=== PATIENT | female | born 1990 | race Caucasian/White ===

== ENCOUNTER 2017-06-04 21:43 | Emergency (ER) | payer MEDICARE, OTHER ==
[~2017-06-04] VITALS: Ht 165.1 cm; Wt 68.0 kg
--- OUTSIDE RECORDS SUMMARY | ~2017-06-04 | XMS ---
Demographics + + + | Address | [address] | | | [place] [address] | + + + | Preferred Language | Unknown | + + + | Marital Status | Unknown | + + + | Restorationism Affiliation | Unknown | + + + | Race | Unknown | + + + | Ethnic Group | Unknown | + + + Author + + + | Author | [facility] | + + + | Organization | [facility] | + + + | Address | [address] | | | [place] [address] | + + + | Phone | | + + + Care Team Providers + + + + | Care Quality Technician Fiberglass Name | Role | Phone | + + + + Unavailable | Unavailable | + + + + PROBLEMS +---------+ + + +--------+ + + | Type | Condition | ICD9-CM | [id number] | Onset | Condition | SNOMED | | | | Code | Code | Dates | Status | Code | +---------+ + + +--------+ + + | Problem | Abdominal | | R10.11 | | Active | [id number] | | | pain, | | | | | | | | chronic, | | | | | | | | right | | | | | | | | upper | | | | | | | | quadrant | | | | | | +---------+ + + +--------+ + + | Problem | Complex | G90.50 | | | Active | [id number] | | | regional | | | [...] | | K59.01 | | Active | [id number] | | | transit | | | | | | | | constipati | | | | | | | | on | | | | | | +---------+ + + +--------+ + + ALLERGIES No Known Allergies SOCIAL HISTORY No smoking Hx information available PLAN OF CARE VITAL SIGNS MEDICATIONS Unknown Medications RESULTS No Results PROCEDURES No Known procedures IMMUNIZATIONS No Known Immunizations"
--- OUTSIDE RECORDS SUMMARY | ~2017-06-04 | XMS ---
Demographics + + + | Address | [address] | | | [place] [address] | + + + | Preferred Language | Unknown | + + + | Marital Status | Unknown | + + + | Jainism Affiliation | Unknown | + + + | Race | Unknown | + + + | Ethnic Group | Unknown | + + + Author + + + | Author | [facility] | + + + | Organization | [facility] | + + + | Address | [address] | | | [place] [address] | + + + | Phone | | + + + Care Team Providers + + + + | Care Machine Operator Helper Name | Role | Phone | + + + + Unavailable | Unavailable | + + + + PROBLEMS +---------+ + + +--------+ + + | Type | Condition | ICD9-CM | [id number] | Onset | Condition | SNOMED | | | | Code | Code | Dates | Status | Code | +---------+ + + +--------+ + + | Problem | Fibromyalg | M79.7 | | | Active | [id number] | | | ia | | | | | | | | affecting | | | | | | | | multiple | | | | | | | | sites | | | | | | +---------+ + + +--------+ + + | Problem | Abdominal | | R10.11 | | Active | [id number] | | | pain, | | | | | | | | chronic, | | | | | | | | right | | | | | | | | upper | | | | | | | | quadrant | | | | | | +---------+ + + +--------+ + + | 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 | [id number] | | | transit | | | | | | | | constipati | | | | | | | | on | | | | | | +---------+ + + +--------+ + + | Problem | Complex | G90.50 | | | Active | [phone] | | | regional | | | [...] Morphine | Anaphylaxis | Non Drug | May, | Active | | | | Allergy [...] + | Height | 64.5 in | 2017-06-01 | + + + + | Weight | 150 lbs | 2017-06-01 | + + + + | BMI | 25.35 kg/m2 | 2017-06-01 | + + + + | Temperature | 97.7 degrees Fahrenheit | 2017-06-01 | + + + + | Heart Rate | 107 /min | 2017-06-01 | + + + + | Blood pressure systolic | 123 mm Hg | 2017-06-01 | + + + + | Blood pressure diastolic | 65 mm Hg | 2017-06-01 | + + + + MEDICATIONS + [...] Golytely | Orally | as | | Dec, | | | Active | | 236 [...] Rectal | 1 enema | 24h | Nov, | | | Active | | [...] 10 | Once a | | | 2017 | | | | | GM/15ML | [...] + +--------+ | Pregabal | Orally | 1 | | 19 Gerardo, | | | Active | | in 75 mg | Once at | capsule | | 2017 | | | | | | bedtime | | | | | | | | | for one | | | | | | | | | week and | | | | | | | | | | | | | | | | | | Increase | | | | | | | | | to | | | | | | | | | Twice a | | | | | | | | | day | | | | | | | | | after 7 | | | | | | | | | days. | | | | | | [...] Orally | 1 tablet | 8h | May, | | | Active | [...] + +--------+ | Cycloben | Orally | 1 tablet | | May, | | | Active | | zaprine | Once a | | | 2016 | | | | | HCl 5 MG | day at | | | | | | | | | bedtime | | | | | [...] + + | Office Visit, Est | June 01, 2017 | | | | Pt., Level 4 | | | | + + + + + IMMUNIZATIONS No Known Immunizations"
--- OUTSIDE RECORDS SUMMARY | ~2017-06-04 | XMS ---
Demographics + + + | Address | [address] | | | [place] [address] | + + + | Preferred Language [...] | + + + | Organization | [facility] | + + + | Address | [address] | | | [place] [address] | + + + | Phone | | + + + Care Team Providers + + + + | Care Forestry Contractor Name | Role | Phone | + + + + Unavailable | Unavailable | + + + + PROBLEMS +---------+ + + +--------+ + + | Type | Condition | ICD9-CM | [id number] | Onset | Condition | SNOMED | | | | Code | Code | Dates | Status | Code | +---------+ + + +--------+ + + | Problem | Abdominal | | R10.11 | | Active | [id number] | | | pain, | | | | | | | | chronic, | | | | | | | | right | | | | | | | | upper | | | | | | | | quadrant | | | | | | +---------+ + + +--------+ + + | Problem | Complex | G90.50 | | | Active | [id number] | | | regional | | | [...] | | K59.01 | | Active | [id number] | | | transit | | | [...]
--- OUTSIDE RECORDS SUMMARY | ~2017-06-04 | XMS ---
Demographics + + + | Address | [address] | | | [place] [address] | + + + | Preferred Language | Unknown | + + + | Marital Status | Unknown | + + + | Samaritan Affiliation | Unknown | + + + | Race | Unknown | + + + | Ethnic Group | Unknown | + + + Author + + + | Author | [facility] | + + + | Organization | [facility] | + + + | Address | [address] | | | [place] [address] | + + + | Phone | | + + + Care Team Providers + + + + | Care Alarm Operator Name | Role | Phone | + + + + Unavailable | Unavailable | + + + + PROBLEMS +---------+ + + +--------+ + + | Type | Condition | ICD9-CM | [id number] | Onset | Condition | SNOMED | | | | Code | Code | Dates | Status | Code | +---------+ + + +--------+ + + | Problem | Abdominal | | R10.11 | | Active | [id number] | | | pain, | | | | | | | | chronic, | | | | | | | | right | | | | | | | | upper | | | | | | | | quadrant | | | | | | +---------+ + + +--------+ + + | Problem | Complex | G90.50 | | | Active | [phone] | | | regional | | | [...] | | K59.01 | | Active | [phone] | | | transit | | | [...]
[~2017-06-04 21:43] MED LIST: ADULT GLYCERIN1 EACH PR; ATIVAN1 MG PO; ATIVAN2 MG PO; AUGMENTIN 875-1 EACH PO; CANABIS OIL PO; CARAFATE1 GM/10 ML PO; CELEBREX100 MG PO; CREOMULSIO20 MG/15 M PO; CYCLOBENZAPRINE5 MG PO; CYMBALTA20 MG PO; DEXTROMETHORPHAN PO; DICLOFENAC SODI50 MG PO; DRYSOL35 ML TOP; DURAGESIC1 EAC3; FOLIC ACID1 MG PO; GAVILYTE-G SO4000 ML PO; GLUCOPHAGE500 MG PO; GRANISETRON HCL1 MG PO; HYDROCODON-ACE1 EAC8; HYDROMORPHONE PO; KETOROLAC TROME10 MG PO; KETOROLAC15 MG/1 M1 IM; KETOROLAC30 MG/1 M2 INJ; KETOROLAC60 MG/2 M1 IM; KETOROLAC60 MG/2 ML IV; LAMICTAL200 MG PO; LAMOTRIGINE OD200 MG PO; LAMOTRIGINE200 MG PO; LORAZEPAM1 MG PO; MELATONIN10 M2 PO; METHYLPHENIDATE10 MG PO; METOCLOPRAMIDE10 MG PO; MINOCYCLINE HC100 MG PO; MIRENA1 EACH XX; MOTRIN IB200 MG PO; NALTREXONE HCL50 MG PO; NAMENDA XR28 MG PO; NAMENDA10 MG PO; NUEDEXTA 20-101 EACH PO; ONDANSETRON ODT4 MG MT; ONDANSETRON ODT8 MG PO; OXYCODON-ACETA1 EAC2 PO; OXYCODONE HCL5 MG; PANTOPRAZOLE SO40 MG PO; PHENERGAN25 MG/1 M1 PO; PHENERGAN50 MG RC; PROAIR HFA8.5 GM INH; PROMETHAZINE HC25 M1 PO; PROMETHAZINE HC25 MG PR; PROMETHAZINE12.5 M1 PO; REGLAN10 MG PO; SENNA LAX8.6 MG PO; TRAZODONE HCL100 MG PO; VISTARIL50 MG PO; VITAMIN B-12500 MCG PO; ZOFRAN ODT4 MG PO; ZOFRAN ODT4 MG SL; ZOFRAN ODT8 MG PO; [UNRECOGNIZED DRUG - OTHER] NS
[2017-11-23] MEDS ORDERED: BACLOFEN10 MG PO (14:22)
[2017-11-23] MEDS ORDERED: PROMETHAZINE12.5 M1 PO (14:23)
[2017-11-23] MEDS ORDERED: NAMENDA XR28 MG PO (14:25)
[2017-11-23] MEDS ORDERED: PROTONIX40 MG PO (14:26)
[2017-11-23] MEDS ORDERED: ZOFRAN ODT4 MG PO (14:28)
[2017-11-23] MEDS ORDERED: GAVILAX17 GM PO (14:28)
== END 2017-06-05 00:21 | disposition home or self-care (01) ==
LOC: ED 21:43
DX: G89.29 Other chronic pain (principal); R10.9 Unspecified abdominal pain; K21.9 Gastro-esophageal reflux disease without esophagitis; Z90.49 Acquired absence of other specified parts of digestive tract; Z88.5 Allergy status to narcotic agent; Z79.899 Other long term (current) drug therapy; Z79.01 Long term (current) use of anticoagulants; Z79.84 Long term (current) use of oral hypoglycemic drugs
CPT/HCPCS: 80053; 81001; 83690; 84703; 85025; 87088; 96374; 96375; 99283; J1885; J2405

== ENCOUNTER 2017-06-07 14:53 | Inpatient (IN) | payer MEDICARE, OTHER ==
[~2017-06-07] VITALS: Ht 165.1 cm; Wt 68.0 kg
--- NOTE | 2017-06-07 15:07 | NUR ---
pt arrived for direct admit at this time. pt alert and oriented
--- NOTE | 2017-06-07 17:31 | NUR ---
URINE SAMPLE SENT TO LAB PER . PT RESTING QUIETLY IN BED
--- NOTE | 2017-06-07 17:40 | NUR ---
PT DIRECT ADMIT THIS AFTERNOON. PT HAS CHRONIC ABD ABD LLE PAIN. ACCESSED IMPLANTED PORT. UA SENT, PAIN AND NAUSEA MEDICATIONS ORDERED AND ADMINISTERED. PT HAS BEEN RESTING IN BED SINCE ADMISSION, STAND BY ASSIST TO BATHROOM. BLLOD DRAWN FROM PORT FOR LABS.
--- NOTE | 2017-06-07 18:17 | NUR ---
PT IS RESTING WITH EYES CLOSED RESPERATIONS EVEN. PT WOKE UP FOR VITALS AND ASKED FOR HEAT IN ROOM TO BE TURNED DOWN
--- NOTE | 2017-06-07 21:54 | NUR ---
PT ASSESSMENT COMPLETE. PT RATES ABD PAIN 05/23, DILAUDID GIVEN. PT C/O NAUSEA, PHENERGAN GIVEN. FLEXERIL GIVEN PER PT REQUEST. PT UP TO BATHROOM INDEPENDENTLY, VOIDING WITHOUT DIFFICULTY. IV FLUIDS INFUSING WITHOUT DIFFICULTY. CALL LIGHT WITHIN REACH. PT DENIES ANY FURTHER NEEDS AT THIS TIME.
--- NOTE | 2017-06-08 00:05 | NUR ---
PT SLEEPING, RR EVEN AND UNLABORED. PT APPEARS COMFORTABLE AT THIS TIME. IV FLUIDS INFUSING THROUGH PORT WITHOUT DIFFICULTY. CALL LIGHT WITHIN REACH.
--- NOTE | 2017-06-08 02:26 | NUR ---
CALLED DR PERRY REGARDING BLOOD PRESSURE OUTSIDE MD PARAMETER, NO NEW ORDERS AT THIS TIME.
--- NOTE | 2017-06-08 02:55 | NUR ---
PT C/O PAIN 05/23, DILAUDID AND TORADOL GIVEN. PT C/O NAUSEA, ZOFRAN GIVEN. PT C/O HEARTBURN, MAALOX GIVEN. IV FLUIDS INFUSING WITHOUT DIFFICULTY. PT DENIES ANY FURTHER NEEDS AT THIS TIME. CALL LIGHT WITHIN REACH.
--- NOTE | 2017-06-08 04:00 | NUR ---
PT SLEEPING, RR EVEN AND UNLABORED. PT APPEARS COMFORTABLE AT THIS TIME. IV FLUIDS INFUSING THROUGH PORT WITHOUT DIFFICULTY. CALL LIGHT WITHIN REACH.
--- NOTE | 2017-06-08 07:05 | NUR ---
BEDSIDE HANDOFF REPORT RECEIVED FROM DIRECTOR OF ENTERTAINMENT RN. PT SLEEPING, LEFT UNDISTURBED.
--- NOTE | 2017-06-08 07:15 | NUR ---
PATIENT SLEEPING IN BED. SHE WOKE UP WHEN I POURED NEW ICE WATER INTO HER CUP. SHE ASKED IF SHE COULD HAVE SOME CRACKERS. AFTER CHECKING WITH NURSE SMILEY I GOTHER SOME CRACKERS AND GRAPE JUICE. SHE STATED SHE DID NOT NEED ANYTHING ELSE ATTHIS TIME.
--- NOTE | 2017-06-08 09:05 | NUR ---
PT RESTING IN PAIN. PT COMPLAINT OF PAIN 05/23, GIVEN 5 MG FLEXIRIL, 30 MG TORADOL. PT LUNG SOUNDS CLEAR, ON ROOM AIR. PT BOWEL TONAES ACTIVE, COMPLAINT OF NAUSEA, TOLERATED BREAKFAST, DENIES EMESIS, 4MG ZOFRAN GIVEN. PT WITH PORT TO RIGHT CHEST, WITHOUT REDNESS, PATENT, INFUSING IV FLUIDS D5LR AT 125 ML/HR. PT REQUESTING TO REST. PT DENIES OTHER NEEDS AT THIS TIME.
--- NOTE | 2017-06-08 10:12 | NUR ---
PT RATING PAIN 6/10. GIVEN 0.25MG IV DILAUDID. PT HYPOTENSIVE, BP 89/47, DENIES LIGHTHEADEDNESS, DIZZINESS. PT DENIES NEEDS AT THIS TIME.
--- NOTE | 2017-06-08 10:33 | NUR ---
NOTIFIED OF HYPOTENSION. NO NEW ORDERS AT THIS TIME.
--- NOTE | 2017-06-08 10:39 | NUR ---
I CAME INTO TAKE PATIENTS VITALS. SHE WAS IN BATHROOM. I EMPTIED HAT IN BATHROOM THEN TOOK HER VITALS. BLOOD PRESSURE WAS LOW BUT NURSE SMILEY WAS IN ROOM AND SAID SHE WOULD LET KNOW. I GOT PATIENT FRESH ICE WATER. SHE DOES NOT NEED ANYTHING ELSE AT THIS TIME.
--- NOTE | 2017-06-08 13:44 | NUR ---
PT REQUESTING PAIN MEDICATION. NEW ORDER FOR DILAUDID Q6H PRN DUE TO HYPOTENSION. DISCUSSED WITH PT. PT UP TO BATHROOM. TEARFUL.
--- NOTE | 2017-06-08 13:51 | NUR ---
PT GIVEN 12.5 MG PHENRGAN IV FOR NAUSEA. PT VOICING FRUSTRATION OF PAIN MEDICATION SCHEDULE, DISCUSSED WITH PT.
--- NOTE | 2017-06-08 15:00 | NUR ---
MD TO BEDSIDE TO EVAULATE PT. PLAN TO POSSIBLY DISCHARGE TOMORROW DEPENDING ON ORAL INTAKE. PT WITHOUT EMESIS. PT VOICING CONCERN OF DISCHARGING WITH CURRENT PAIN. PT DENIES NEEDS AT THIS TIME.
[2017-06-08] MEDS ORDERED: LYRICA75 MG PO (16:35)
--- NOTE | 2017-06-08 17:31 | NUR ---
PT ON ROOM AIR, LUNG SOUNDS CLEAR. ABD PAIN UNCHANGED, RECEIVED TORADOL, DILAUDID, FLEXIRIL, ZOFRAN AND PHENERGAN THROUGHOUT SHIFT. PT ABLE TO TOLERATE REGULAR DIET. PT UP INDEPENDENTLY. PT WITH IV FLUIDS INFUSING AT 65 ML/HR. PT VOIDING QS. PLAN TO POSSIBLY DISCHARGE TOMORROW.
--- NOTE | 2017-06-08 18:52 | NUR ---
MD NOTIFIED OF BLOOD PRESSURE 98/57, HR 78, URINE OUTPUT QS, LIGHT YELLOW IN COLOR, PT DENIES DIZZINESS. NO NEW ORDERS.
--- NOTE | 2017-06-08 20:16 | NUR ---
IN TO CHECK ON PT, PT IN BED LISTENING TO MUSIC. PT ALERT AND PLEASENT. ASSESSMENT AND VITALS DONE. PT STATES THAT SHE NORMALLY TAKES MELATONIN FOR SLEEP. PT WOULD LIKE TO KNOW IF SHE HAS MELATONIN ORDERED. ADVISED WILL CHECK MEDICATION LIST. FRESH WATER GIVEN, CALL LIGHT WITHIN REACH.
--- NOTE | 2017-06-08 23:29 | NUR ---
IN TO CHECK ON PT, PT C/O 05/23 ABD PAIN AND REQUEST MEDICATION. SCHEDULED DILAUDID GIVEN. FRESH WATER GIVEN. NO FURTHER NEEDS AT THIS TIME. CALL LIGHT WITHIN REACH.
--- NOTE | 2017-06-09 00:36 | NUR ---
IN TO CHECK ON PT, PT APPEARS TO BE SLEEPING. NO APPARENT DISTRESS. CALL LIGHT WITHIN REACH.
--- NOTE | 2017-06-09 02:08 | NUR ---
BROUGHT PT ICE WATER PER PT REQUEST. PT PLEASENT AND HAD NO FURTHER NEEDS AT THIS TIME.
--- NOTE | 2017-06-09 03:15 | NUR ---
PT CALLED REQUESTING PAIN MEDICATION. EMAR REVIEWED, PT NOTIFIED CAN HAVE DILAUDID AND PHENERGAN AT 0330. PT AGREES. NOTES EMESIS OF 100 MLS. PT REQUESTED CRACKERS BEFORE NEXT DOSE OF PAIN MEDICATION. CRACKERS GIVEN. CALL LIGHT WITHIN REACH.
--- NOTE | 2017-06-09 04:03 | NUR ---
IN TO PT'S ROOM TO GIVE MEDICATION, PT UP TO BATHROOM WITHOUT ASSIST. FRESH ICE WATER GIVEN. PT AMBULATED BACK TO BED, NO APPARENT DISTRESS NOTED. CALL LIGHT WITH IN REACH.
--- NOTE | 2017-06-09 05:23 | NUR ---
EMESIS X1. ABD PAIN UNCHANGED THROUGHOUT THE SHIFT. DILAUDID AND PHENERGAN GIVEN THROUGHOUT THE SHIFT. REGULAR DIET. PT UP IN ROOM INDEPENDENTLY. PLAN FOR POSSIBLE DISCHARGE TODAY.
--- NOTE | 2017-06-09 06:57 | NUR ---
BEDSIDE HANDOFF REPORT RECEIVED FROM CHURCH SUPERVISOR RN. PT SLEEPING, LEFT UNDISTURBED.
--- NOTE | 2017-06-09 08:32 | NUR ---
PT REQUESTING PAIN MEDICATION, RATING PAIN 7/10 TO ABD. PT GIVEN 0.25 MG IV DILAUDID. MOTHER AT BEDSIDE. PT ON ROOM AIR, LUNG SOUNDS CLEAR. PT TOLERATING REGULAR DIET. PT BOWEL TONES ACTIVE. IV LFUIDS INFUSING AT 65ML/HR. PT DENIES NEEDS AT THIS TIME.
[2017-06-09] MEDS ORDERED: KETOROLAC TROME10 MG PO (09:11)
[2017-06-09] MEDS ORDERED: MELOXICAM15 MG PO (09:11)
--- NOTE | 2017-06-09 09:12 | NUR ---
MED REC COMPLETE--PER PATIENT
--- NOTE | 2017-06-09 14:40 | NUR ---
PT RESTING IN BED. PT STATES PAIN 6.5/10, GIVEN IV TORADOL. PT WITH 2 LARGE LOOSE STOOLS, DISCUSSED MEDICATION DUE, PT WOULD LIKE TO HOLD LACTULOSE AND ONLY TAKE 1 PACKET OR MIRALAX. PT VOIDING LIGHT YELLOW URINE. PT PORT FLUSHING WIHTOUT DIFFICULTY, FREE OF REDNESS OR SWELLING AT ACCESS SITE. PT INDEPENDENT IN ROOM. PT DENIES NEEDS AT THIS TIME.
--- NOTE | 2017-06-09 15:30 | NUR ---
PT SLEEPING, LEFT UNDISTURBED.
--- NOTE | 2017-06-09 18:30 | NUR ---
PT ON ROOM AIR, LUNG SOUNDS CLEAR. PT PAIN CONTROLLED WITH IV DILAUDID AND TORADOL. PT COMPLAINT OF NAUSEA, RECEIVING ZOFRAN AND PHENERGAN. PT TOLERATING REGULAR DIET, FREE OF EMESIS THIS SHIFT. PT WITH PORT TO RIGHT CHEST, INFUSING D5LR AT 65 ML/HR. PT INDEPENDENT IN ROOM. PT VOIDING QS. PT HAD 2 LARGE LOOSE BMS TODAY.
--- NOTE | 2017-06-09 20:21 | NUR ---
PT ASSESSMENT COMPLETE. PT C/O ABD PAIN 04/23, IV DILAUDID GIVEN. PT C/O NAUSEA WITH NO EMESIS, PHENERGAN GIVEN. FLEXERIL AND HS MEDS GIVEN PER PT REQUEST. IV FLUIDS INFUSING WITHOUT DIFFICULTY THROUGH PORT. PT UP INDEPENDENTLY TO BATHROOM, VOIDING WITHOUT DIFFICULTY. CALL LIGHT WITHIN REACH. PT DENIES ANY FURTHER NEEDS AT THIS TIME.
--- NOTE | 2017-06-10 00:15 | NUR ---
PT SLEEPING, RR EVEN AND UNLABORED. PT APPEARS COMFORTABLE AT THIS TIME. IV FLUIDS INFUSING THROUGH PORT WITHOUT DIFFICULTY. CALL LIGHT WITHIN REACH.
--- NOTE | 2017-06-10 02:25 | NUR ---
PT C/O ABD PAIN 04/23, DILAUDID AND TORADOL GIVEN. PT C/O NAUSEA WITH NO EMESIS, ZOFRAN GIVEN. IV FLUIDS INFUSING WITHOUT DIFFICULTY. CALL LIGHT WITHIN REACH. PT DENIES ANY FURTHER NEEDS AT THIS TIME.
--- NOTE | 2017-06-10 04:15 | NUR ---
PT SLEEPING, RR EVEN AND UNLABORED. PT APPEARS COMFORTABLE AT THIS TIME. IV FLUIDS INFUSING THROUGH PORT WITHOUT DIFFICULTY. CALL LIGHT WITHIN REACH.
--- NOTE | 2017-06-10 06:37 | NUR ---
PT HAD AN UNEVENTFUL NIGHT, SLEPT MOST OF NIGHT. PT RECEIVED IV DILAUDID AND TORADOL FOR PAIN. PT RECEIVED ZOFRAN AND PHENERGAN FOR PAIN. PT ON ROOM AIR. PT HAD NO EMESIS THIS SHIFT. PT DID NOT HAVE A BM THIS SHIFT. PT AMBULATES INDEPENDENTLY.
--- NOTE | 2017-06-10 06:58 | NUR ---
PT RATES PAIN 6/10, IV DILAUDID GIVEN. IV FLUIDS INFUSING WITHOUT DIFFICULTY. PT DENIES ANY FURTHER NEEDS AT THIS TIME.
--- NOTE | 2017-06-10 07:20 | NUR ---
BEDSIDE HANDOFF REPORT RECEIVED FROM NORBERT TAYLOR RN. PT SLEEPING, LEFT UNDISTURBED.
--- NOTE | 2017-06-10 09:18 | NUR ---
PT RESTING IN BED. DISCUSSED PAIN MANAGEMENT WITH PT, PT REQUESTING TORADOL AND FLEXIRIL. PT COMPLAINT OF NAUSEA, GIVEN ZOFRAN. PT LUNG SOUNDS CLEAR WITH DIMINISHED RIGHT LOWER LOBE, ENCOURAGED DEEP BREATHING, I/S AND COUGH, IMPROVED. PT TOLERATING REGULAR DIET, DENIES EMESIS. PT REPORT OF BOWEL MOVEMENT OVER NIGHT, GIVEN MIRALAX AND LACTULOSE. PT INDEPENDENT IN ROOM. PT UP TO BATHROOM, VOIDING. PT DENIES NEEDS AT THIS TIME. DISCUSSED PLAN OF CARE. PT STATES SHE IS FEELING A LITTLE BETTER TODAY.
--- NOTE | 2017-06-10 09:44 | NUR ---
PT HAS EATEN BREAKFAST AND IS NOW RESTING IN BED, ASKED IF PT WANTED TO SHOWER SHE SAID NO BECAUSE SHE IS SUPPOSED TO BE DISCHARGING TO HOME TODAY. PT DID WASH FACE AND HANDS WITH A WARM WASH CLOTH THOUGH
--- NOTE | 2017-06-10 11:30 | NUR ---
PT REQUESTING PAIN MEDICATION, GIVEN 0.25 MG IV DILAUDID. PT GIVEN 12.5 MG PHENERGAN FOR NAUSEA, WITHOUT EMEIS. PT REPORT OF 2 BOWEL MOVEMENTS. PT DENIES OTHER NEEDS AT THIS TIME. DISCUSSED DISCHAREG WITH PT, PT AGREEABLE TO DISCHARGE.
[2017-06-10] MEDS ORDERED: KETOROLAC30 MG/1 M1 IM (12:20)
[2017-06-10] MEDS ORDERED: ALLERGY SYRING1 EAC3 IM (12:21)
--- NOTE | 2017-06-10 13:22 | NUR ---
DISCHARGE INSTRUCTIONS COMPLETED WITH PT. ATTENTION SPENT ON ADVERSE EFFECTS OF LYRICA, PT INSTRUCTED TO INCREASE DOSE AFTER ONE WEEK IF NO ADVERSE EFFECTS NOTED. PT TO FOLLOW UP WITH DR. PERRY ON JUN 26. CENTRAL PORT DEACCESSED. NEEDLE INTACT, SITE DRESSED WITH BACITRACIN, GAUZE AND OPSITE.
[2017-11-23] MEDS ORDERED: BACLOFEN10 MG PO (14:22)
[2017-11-23] MEDS ORDERED: PROMETHAZINE12.5 M1 PO (14:23)
[2017-11-23] MEDS ORDERED: NAMENDA XR28 MG PO (14:25)
[2017-11-23] MEDS ORDERED: PROTONIX40 MG PO (14:26)
[2017-11-23] MEDS ORDERED: ZOFRAN ODT4 MG PO (14:28)
[2017-11-23] MEDS ORDERED: GAVILAX17 GM PO (14:28)
== END 2017-06-10 13:40 | disposition home or self-care (01) | DRG 392 ==
LOC: MS 14:53
PROVIDERS: ADMIT Internal Medicine
DX: R10.11 Right upper quadrant pain (principal); G90.50 Complex regional pain syndrome I, unspecified; G89.29 Other chronic pain; G43.A0 Cyclical vomiting, in migraine, not intractable; E86.0 Dehydration; K59.01 Slow transit constipation; M79.7 Fibromyalgia; Z79.1 Long term (current) use of non-steroidal anti-inflammatories (NSAID); Z88.5 Allergy status to narcotic agent; Z79.899 Other long term (current) drug therapy
CPT/HCPCS: 74000; 80053; 81001; 83735; 85025; J1170; J1650; J1885; J2405; J2550; J7120

== ENCOUNTER 2017-06-21 17:42 | Inpatient (IN) | payer MEDICARE, OTHER ==
[~2017-06-21] VITALS: Ht 165.1 cm; Wt 69.4 kg
--- OUTSIDE RECORDS SUMMARY | ~2017-06-21 | XMS ---
Demographics + + + | Address | [address] | | | [place] [address] | + + + | Preferred Language | Unknown | + + + | Marital Status | Unknown | + + + | Nondenominational Affiliation | Unknown | + + + | Race | Unknown | + + + | Ethnic Group | Unknown | + + + Author + + + | Author | [facility] | + + + | Organization | [facility] | + + + | Address | [address] | | | [place] [address] | + + + | Phone | | + + + Care Team Providers + + + + | Care Well Driller Name | Role | Phone | + + + + Unavailable | Unavailable | + + + + PROBLEMS +---------+ + + +--------+ + + | Type | Condition | ICD9-CM | [id number] | Onset | Condition | SNOMED | | | | Code | Code | Dates | Status | Code | +---------+ + + +--------+ + + | Problem | Fibromyalg | M79.7 | | | Active | [id number] | | | ia | | | | | | | | affecting | | | | | | | | multiple | | | | | | | | sites | | | | | | +---------+ + + +--------+ + + | Problem | Abdominal | | R10.11 | | Active | [id number] | | | pain, | | | | | | | | chronic, | | | | | | | | right | | | | | | | | upper | | | | | | | | quadrant | | | | | | +---------+ + + +--------+ + + | 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 | [phone] | | | transit | | | | | | | | constipati | | | | | | | | on | | | | | | +---------+ + + +--------+ + + | Problem | Complex | G90.50 | | | Active | [phone] | | | regional | | | [...]
--- OUTSIDE RECORDS SUMMARY | ~2017-06-21 | XMS ---
Demographics + + + | Address | [address] | | | [place] [address] | + + + | Preferred Language | Unknown | + + + | Marital Status | Unknown | + + + | Buddhism Affiliation | Unknown | + + + | Race | Unknown | + + + | Ethnic Group | Unknown | + + + Author + + + | Author | [facility] | + + + | Organization | [facility] | + + + | Address | [address] | | | [place] [address] | + + + | Phone | | + + + Care Team Providers + + + + | Care Mortgage Broker Name | Role | Phone | + + + + Unavailable | Unavailable | + + + + PROBLEMS +---------+ + + +--------+ + + | Type | Condition | ICD9-CM | [id number] | Onset | Condition | SNOMED | | | | Code | Code | Dates | Status | Code | +---------+ + + +--------+ + + | Problem | Fibromyalg | M79.7 | | | Active | [id number] | | | ia | | | | | | | | affecting | | | | | | | | multiple | | | | | | | | sites | | | | | | +---------+ + + +--------+ + + | Problem | Abdominal | | R10.11 | | Active | [id number] | | | pain, | | | | | | | | chronic, | | | | | | | | right | | | | | | | | upper | | | | | | | | quadrant | | | | | | +---------+ + + +--------+ + + | 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 | [id number] | | | transit | | | | | | | | constipati | | | | | | | | on | | | | | | +---------+ + + +--------+ + + | Problem | Complex | G90.50 | | | Active | [phone] | | | regional | | | [...]
--- OUTSIDE RECORDS SUMMARY | ~2017-06-21 | XMS ---
Demographics + + + | Address | [address] | | | [place] [address] | + + + | Preferred Language [...] | + + + | Organization | [facility] | + + + | Address | [address] | | | [place] [address] | + + + | Phone | | + + + Care Team Providers + + + + | Care Special Makeup Fx Artist Instructor Name | Role | Phone | + + + + Unavailable | Unavailable | + + + + PROBLEMS +---------+ + + +--------+ + + | Type | Condition | ICD9-CM | [id number] | Onset | Condition | SNOMED | | | | Code | Code | Dates | Status | Code | +---------+ + + +--------+ + + | Problem | Fibromyalg | M79.7 | | | Active | [id number] | | | ia | | | | | | | | affecting | | | | | | | | multiple | | | | | | | | sites | | | | | | +---------+ + + +--------+ + + | Problem | Abdominal | | R10.11 | | Active | [id number] | | | pain, | | | | | | | | chronic, | | | | | | | | right | | | | | | | | upper | | | | | | | | quadrant | | | | | | +---------+ + + +--------+ + + | 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 | [phone] | | | transit | | | | | | | | constipati | | | | | | | | on | | | | | | +---------+ + + +--------+ + + | Problem | Complex | G90.50 | | | Active | [phone] | | | regional | | | [...]
[~2017-06-21 17:42] MED LIST changes: +ALLERGY SYRING1 EAC3 IM; +KETOROLAC30 MG/1 M1 IM; +LYRICA75 MG PO; +MELOXICAM15 MG PO
--- NOTE | 2017-06-21 19:30 | NUR ---
PT DIRECT ADMIT FROM HOME FOR NAUSEA AND VOMITING. CURRENTLY HAS A EMESIS BAG NEAR HER, HAS NOT VOMITED SINCE ARRIVAL TO FLOOR AT 1830, PRIOR TO THIS NURSE SHIFT. PT IS KNOWN TO THIS NURSE, IS ALERT AND ORIENTATED. HAS IMPORTED PORT THAT WILL ACCESSED FOR FLUIDS, AND MEDICATIONS.
--- NOTE | 2017-06-21 20:30 | NUR ---
ACCESSED RIGHT SIDE PORT WITHOUT DIFFICULTY. PT HAS REQUESTED PHENERGAN VS REGLAN, WILL NOTIFY DR. PERRY.
--- NOTE | 2017-06-21 21:13 | NUR ---
MEDICATED FOR PAIN AT THIS TIME, BOLUS INFUSING, PT REQUESTED MELATONIN FOR SLEEP WILL REQUEST FROM WELL.
--- NOTE | 2017-06-21 22:43 | NUR ---
RECEIVED ORDER FOR MELATONIN @ 2127, CURRENTLY PT GETTING READY TO SLEEP. REQUESTS TO "KEEP HER PAIN MED UP" SO SHE DOESN'T HURT. PT HAS HAD SMALL, LESS THAN 50 CC EMESIS TO THIS HOUR. REQUESTED AT RECEIVED A BOX LUNCH NEAR 2100, DRANK 300 CC CRANBERRY JUICE WITH HER MIRALAX, WELL 300 CC WATER ALL TO THIS HOUR. PAIN IN MOSTLY IN HER ABDOMINAL AREA, TENDER TO TOUCH, PAIN IS NOT A NEW PAIN TO PT HER STOMACH "HURTS LIKE DOING ABS EXERCISES CONSTANTLY" PAIN "NEVER GOES AWAY" UA SENT TO LAB, DENIES PAIN WHEN VOIDING.
--- NOTE | 2017-06-21 23:30 | NUR ---
PT WITH EYES CLOSED, RESP EVEN UNLABORED. HAS NOT USED CALL LIGHT SINCE 2199
--- NOTE | 2017-06-22 01:59 | NUR ---
NURSE NOTIFIED RE BP.
--- NOTE | 2017-06-22 02:33 | NUR ---
WOKE PT FOR VS NEAR 0155. PT COMPLAINED TO BEET TOPPER THAT SHE WAS NAUSEATED, WELL IN PAIN. ALSO REQUESTED FROM BEET TOPPER APPLE JUICE. PT DRANK 200 CC APPLEJUICE, THEN TOLD RN THAT IT FELT LIKE SHE HAD "BILE" THAT NEEDED TO COME UP. BEGAN COUGHING, AND EVENTUALLY VOMITED UP 400 CC LIQUID, COLOR OF APPLEJUICE. MEDICATED WITH ZOFRAN AND DILUADID FOR PAIN PRIOR TO THE VOMITING EPISODE. WILL CHECK PT NEAR 0300 AND IF STILL NAUSEATED WILL MED WITH PHENERGAN. UP TO BATHROOM AFTER VS WERE TAKEN. VOIDING WITHOUT COMPLAINTS
--- NOTE | 2017-06-22 03:15 | NUR ---
DR PERRY AWARE OF BP. CHECKED IN ON PT AT 0300 PT LAYING ON HER RIGHT SIDE, CELL PHONE PLAYING MUSIC, RESP EVEN AND UNLABORED. DID NOT MOVE WHEN RN IN ROOM, AND HAS NOT TURNED CALL LIGHT ON FOR MORE NAUSEA OR PAIN MEDICATION.
--- NOTE | 2017-06-22 05:28 | NUR ---
COMPLAINED OF PAIN NEAR 0510, RECEIVED PAIN MED WELL PHENERGAN. NO SIGN OF VOMITING AT THIS TIME. UP TO THE BATHROOM TO VOID.
--- NOTE | 2017-06-22 06:01 | NUR ---
PT CURRENTLY RESTING, HAS HAD PAIN MEDICATION X2 WELL MEDS FOR NAUSEA X 3 THIS SHIFT. PT REQUESTED AND RECEIVED BOX LUNCH (SANDWICH). VOMITED 400 ML LIQUID EMESIS NEAR 0200, BUT HAS NOT HAD ANY FURTHER EMESIS. NO BOWEL MOVEMENTS, VOIDING WITHOUT DIFFICULTY. PAIN HAS BEEN IN BACK, ABD AREA, NOT NEW PAIN, BUT PAST 4 DAYS HAS NOT GOTTEN RELIEF FROM HER ROUTINE MEDICATIONS FOR PAIN RELIEF AT HOME. INDEPENDENT IN ROOM. PORTACATH RIGHT CHEST, WITH IV INFUSING PER ORDER.
--- NOTE | 2017-06-22 06:45 | NUR ---
WOKE BRIEFLY FOR IV FLUID BAG CHANGE, ASK HER HOW HER PAIN WAS, SHE STATED IT WAS GOOD AND CLOSED EYES WENT TO SLEEP.
--- NOTE | 2017-06-22 07:08 | NUR ---
NURSE NOTIFIED RE BP.
--- NOTE | 2017-06-22 07:26 | NUR ---
REPORT RECEIVED FROM FORTUNATO WHITAKER USING 5 P'S. PT SLEEPING IN BED. RESP EVEN, UNLABOURED. NO S/S DISTRESS. IVF INFUSING WITHOUT DIFFICULTY. CALL LIGHT IN REACH.
--- NOTE | 2017-06-22 07:52 | NUR ---
PATIENT SLEEPING IN BED. DID NOT DISTURB AT THIS TIME. HAT IN BATHROOM IS EMPTY.
--- NOTE | 2017-06-22 09:33 | NUR ---
PT AWAKE AND ALERT IN BED. REQUESTS PAIN AND NAUSEA MEDS. GIVEN. DENIES FURTHER NEEDS. AM ASSESSMENT AND MEDS DONE. CALL LIGHT IN REACH.
--- NOTE | 2017-06-22 11:00 | NUR ---
PT SLEEPING. RESP EVEN, UNLABOURED. CALL LIGHT IN REACH.
--- NOTE | 2017-06-22 12:57 | NUR ---
PT RESTING IN BED. COMPLAINED OF PAIN AND NAUSEA THAT ALWAYS FOLLOWS. SHE BEGAN TO TELL ME THAT SHE IS REALLY FRUSTRATED WITH HER CHRONIC PAIN ISSUES. SHE FEELS SHE IS A BURDEN, CAN'T GO TO HER DAD'S NOW BECAUSE OF ISSUES HE IS ENCOUNTERING. REINFORCED CONCRETE INSPECTOR'S CAME IN TO CHECK VITALS, WILL COME BACK AGAIN AND FOLLOW UP.
--- NOTE | 2017-06-22 13:56 | NUR ---
PT RESTING IN BED. REQUESTS PAIN MED. GIVEN 0.25 MG DILAUDID. DENIES FURTHER NEEDS. DENIES NAUSEA AT THIS TIME. CALL LIGHT IN REACH.
--- NOTE | 2017-06-22 14:48 | NUR ---
REPORT OFF FROM MINE BUCIO AT THIS TIME.
--- NOTE | 2017-06-22 14:50 | NUR ---
REPORT TO FORTUNATO MIRZA - TO ASSUME CARE.
--- NOTE | 2017-06-22 17:42 | NUR ---
PT HAS SLEPT INTERMITTENLY, EATING REGULAR DIET NO EMESIS. REPORTS NASUEA AND PAIN REQUESTS PAIN AND NAUSEA COVERAGE REGULARLY. AMBUALTES INDEPENDENTLY IN ROOM. VOIDING Q.S. I.V. INFUSING TO ACCESSED IMPLANTED PORT WNL, DRESSING INTACT. SYMPTOMS CONTROLLED
--- NOTE | 2017-06-22 19:38 | NUR ---
IN TO SEE PT, PT C/O ABD PAIN 10 AND NAUSEA. PRN MEDICATIONS GIVEN. ASSESSMENT DONE. NO FURTHER NEEDS AT THIS TIME. CALL LIGHT WITH IN REACH.
--- NOTE | 2017-06-22 21:59 | NUR ---
IN TO GIVE PRN PAIN MEDICATION PER PT REQUEST. PT SLEEPING, AWAKENS EASILY TO SOUND. PT STATES PAIN "IS HIGH." RATES PAIN A 7/10. NO FURTHER NEEDS AT THIS TIME. CALL LIGHT WITH IN REACH.
--- NOTE | 2017-06-22 23:02 | NUR ---
IN TO CHANGE IVF. PT SLEEPING SOUNDLY. CALL LIGHT WITH IN REACH.
--- NOTE | 2017-06-23 00:33 | NUR ---
PT CALLED REQUESTING MEDICATION FOR NAUSEA, ZOFRAN GIVEN. PT RESTING QUIETLY WHEN ENTERING THE ROOM. NO FUTHER NEEDS AT THIS TIME. CALL LIGHT WITH IN REACH.
--- NOTE | 2017-06-23 02:46 | NUR ---
IN TO CHECK ON PT, PT AWAKENS TO SOUND. MEDICATION FOR PAIN REQUESTED. PRN MEDICATIONS GIVEN. PT UP TO BATHROOM INDEPENDANTLY. NO FURTHER NEEDS AT THIS TIME. CALL LIGHT WITH IN REACH.
--- NOTE | 2017-06-23 04:18 | NUR ---
PT HAS HAD UNEVENTFUL SHIFT, SLEPT WELL. SCHEDULED AND PRN MEDICATION GIVEN FOR 6-05/23 PAIN. PT C/O NAUSEA. NO EMESIS. TOLERATING DIET WELL. PT IS INDEPENDANT IN ROOM. VOIDING QS. PT IS PLEASANT.
--- NOTE | 2017-06-23 05:24 | NUR ---
IN TO GIVEN PRN MEDICATION PER PT REQUEST. PT UP TO BATHROOM INDEPENDENTLY. BACK TO BED. VITAL OBTAINED AND I&O COMPLETED. CALL LIGHT WITH IN REACH.
--- NOTE | 2017-06-23 08:43 | NUR ---
PATIANT UP IN BED. EMPTY GARBAGE. TOOK BREAKFAST TRAY. EMPTY HAT. FRESH ICE WATER. SHE AGRED TO TAKE SHOWER LATER TODAY.
--- NOTE | 2017-06-23 09:02 | NUR ---
coop with assessment, wants MD to reassess Dilausis as it is not enough to control pain
--- NOTE | 2017-06-23 11:09 | NUR ---
medicated with dilaudid 4mg po abd and l leg pain, received phenergan too per c/o upset stomach after taking dilaudid
--- NOTE | 2017-06-23 12:02 | NUR ---
UP IN BED. ICE WATER. GARBAGE EMPTY. EMPTY HAT IN BATHROOM. PATIENT IS GOOD AT THIS TIME.
--- NOTE | 2017-06-23 14:08 | NUR ---
MEDICATED WITH LACTULOSE 10gM
--- NOTE | 2017-06-23 15:47 | NUR ---
MEDICATED WITH DILAUDID 4MG PO AND ZOFRAN PER UPSET STOMACH, NO EMESIS, UP TO BRP SEVERAL TIMES, NO BM, PASSING GAS
--- NOTE | 2017-06-23 17:20 | NUR ---
Left chest Port intact, infusing IVF w/o problems,labs drwn for thyroid level. Site patent. Continues to have hypoactive bowel tones, passing gas, received Latulose per constipation, no results yet. Pt gets up and down to use toilet with minimum of help. tolerates well, Urine clear yellow, Has been medicated with Dilaudid 2x per pain with good pain control, Phenergan and zofran as those meds upset her stomach. No c/o n/v or emesis present this shift. Pt up to shower at this time.
--- NOTE | 2017-06-23 18:41 | NUR ---
PT SHOWERED, TOLERATED WELL, BACK TO BED, MEDICATED WITH TORADOL PER C/O PAIN AND PHENERGAN PER C/O UPSET STOMACH FROM TORADOL, MEDS GIVEN IV, NO N/V OR DRY HEAVING. NO BOWEL MOVEMENT YET,
--- NOTE | 2017-06-23 19:44 | NUR ---
RECIEVED REPORT FROM DAY SHIFT RN. PATIENT IS RESTING IN BED WITH EYES CLOSED, RR 17. CALL LIGHTIN REACH.
--- NOTE | 2017-06-23 21:09 | NUR ---
PATIENTS VITALS TAKEN AND RECORDED. PATIENT DENIES ANY FURTHER NEEDS. CALL LIGHT IN REACH.
--- NOTE | 2017-06-23 22:35 | NUR ---
PATIENT ASSESMENT COMPLETED. PATIENTS EVENING MEDICATIONS GIVEN PER ORDER. PATIENT IS REQUESTING PRN PAIN MEDICATION FOR 7/10 ABD AND BACK PAIN THAT IS CONSTANT. PATIENT GIVEN PRN PAIN MEDICATION PER ORDER. PATIENT IS AAOX3. PATIENT IS INDEPENDENT IN THE ROOM AND IS STEADY ON HER FEET. PATIENT REQUESTED A SANDWICH BOX. PATIENT ALSO GIVEN PRN LACTULOSE. PATIENT HAS STILL NOT BEEN ABLE TO HAVE A BM. PATIENT DENIES ANY FURTHER NEEDS AT THIS TIME. CALL LIGHT IN REACH.
--- NOTE | 2017-06-24 00:15 | NUR ---
PATIENT COMPLAINS OF NAUSEA AND PAIN. PATIENT RATES PAIN AT A 7/10. PATIENT GIVEN PRN PAIN AND NAUSEA MEDICATION PER ORDER. PATIENT DENIES ANY FURTHER NEEDS AT THIS TIME. CALL LIGHT IN REACH.
--- NOTE | 2017-06-24 01:56 | NUR ---
PATIENT CONTINUES TO HAVE 6/10 PAIN. PATIENT CONTINUES TO COMPLAIN OF NAUSEA. PATIENT GIVEN PRN PAIN AND NAUSEA MEDICATION PER ORDER. PATIENT DENIES ANY FURTHER NEEDS AT THIS TIME. CALL LIGHT IN REACH.
--- NOTE | 2017-06-24 04:05 | NUR ---
PATIENT IS RESTING IN BED WITH EYES CLOSED. BREATHING IS EVEN AND UNLBAORED, RR 17
--- NOTE | 2017-06-24 05:22 | NUR ---
PATIENT STRUGGLED WITH REST. PATIENT IS ON A REG DIET. PATIENT RECEIVED X2 PRN NAUSEA MEDICATION. PATIENT RECEIVED PRN DILAUIDID X2 AND PRN TORADOL X1 FOR ABD/BACK PAIN. PATIENT ALSO RECEIVED PRN LACTULOSE. PATIENT IS INDEPENDENT IN THE ROOM. PATIENT ATE A SANDWICH BOX. PATIENT IS AAOX3 AND CALLS APPROPRIATELY. PATIENT CONTINUES TO HAVE FLATULANCE BUT NO BM AT THIS TIME.
--- NOTE | 2017-06-24 06:40 | NUR ---
PATIENT COMPLAINS OF 8/10 PAIN IN HER ABD AND BACK. PATIENT GIVEN PRN PAIN MEDICATION PER ORDER. PATIENTS MORNING MEDICATIONS GIVEN PER ORDER. PATIENT DENIES ANY NEEDS AT THIS TIME. CALL LIGHT IS WITHIN REACH.
--- NOTE | 2017-06-24 07:20 | NUR ---
RECIEVED BEDSIDE REPORT FROM FORTUNATO ARTIS AND PETE BUCIO. PT SLEEPING, BREATHING EVEN AND UNLABORED. PT DID NOT SLEEP WELL, WOULD LIKE TO SLEEP AT THIS TIME.
--- NOTE | 2017-06-24 08:32 | NUR ---
PT UP EATING BREAKFAST. COMPLAINTS OF MILD NAUSEA, REQUESTED PRN PHENERGEN WHICH WAS EFFECTIVE. NO C/O PAIN AT THIS TIME. PT AWAKE AND ALERT X4. LEFT LEG MOVEMENT IS WEAK, LEG IS PINK IN COLOR.
--- NOTE | 2017-06-24 11:18 | NUR ---
PT HAS A FRIEND/MASSAGE THERAPIST AT BEDSIDE. PT REPORTS 7/10 PAIN, PRN PAIN MEDICATION GIVEN PER PT REQUEST. PT REPORTS MILD NAUSEA, PRN ZOFRAN GIVEN.
--- NOTE | 2017-06-24 12:27 | NUR ---
PT SEEMS TO BE IMPROVING. SHE TOLD ME THAT DR VILLARREAL IS THE FIRST DR TO TAKE THE TIME AND EXPLAIN TO HER WHAT IS HAPPENING IN HER BODY. SHE WAS SO PLEASED, I WILL PASS ALONG TO DR. FELIX PRAYER WITH PT, WILL CONTINUE TO FOLLOW
--- NOTE | 2017-06-24 13:11 | NUR ---
PT UP WALKING LAPS WITH BREAKER LAYER. PT REPORTS SMALL BOWEL MOVEMENT.
--- NOTE | 2017-06-24 14:24 | NUR ---
PT HOOKED UP TO FLUIDS. SHE HAS HAD VISITORS AND HAS BEEN UP WALKING.
--- NOTE | 2017-06-24 15:25 | NUR ---
PT IS RESTING IN BED. PRN DILAUDID AND PHENERGREN EFFECTIVE FOR PAIN AND NAUSEA. TOLERATING REGULAR MEALS WELL.
--- NOTE | 2017-06-24 15:45 | NUR ---
PATIENT AWAKE IN BED. NEW ICE WATER. CLEAN ROOM. EMPTY GARBAGE. PATIENT HAS CALL LIGHT AND IS DOING WELL
--- NOTE | 2017-06-24 16:31 | NUR ---
PT REPORTS LESS PAIN THIS SHIFT, PRN DILAUDID AND TORADOL EFFECTIVE PAIN CONTROL. PRN PHENERGREN AND ZOFRAN EFFECTIVE FOR RELIEVING NAUSEA. PT UP WALKING IN HALLS. REPORTS ONE SMALL BM.
--- NOTE | 2017-06-24 19:43 | NUR ---
RECEIVED REPORT FROM DAY SHIFT RN. PATIENT IS RESTING IN BED READING. PATIENT RATES PAIN AT A 7/10. DAY SHIFT RN GAVE PRN PAIN MED AND NAUSEA. PATIENT DENIES FURTHER NEEDS.CALL LIGHT IN REACH.
--- NOTE | 2017-06-24 21:15 | NUR ---
PATIENT ASSESMENT COMPLETED. PATIENTS EVENING MEDICATIONS GIVEN PER ORDER. PATIENT RATES PAIN AT A 5/10. PATIENT DENIES THE NEED FOR PAIN MEDICATION AT THIS TIME. PATIENT IS REQUESTING NAUSEA MEDICATION WHEN IT IS AVAILABLE. PATIENT REMAINS INDEPENDENTIN THE ROOM AND IS STEADY ON HER FEET. PATIENT IS AAOX3.
--- NOTE | 2017-06-24 21:25 | NUR ---
PATIENT GIVEN PRN NAUSEA MEDICATION PER ORDER. PATIENT DENIES ANY FURTHER NEEDS PER ORDER. CALL LIGHT IN REACH.
--- NOTE | 2017-06-24 23:55 | NUR ---
PATIENT IS RESTINGIN BED WITH EYES CLOSED. BREATHING IS EVEN AND UNLABORE, RR 17
--- NOTE | 2017-06-25 02:28 | NUR ---
PATIENT COMPLAINS OF 8/10 PAIN. PATIENT GIVEN PRN PAIN MEDICATION PER ORDER. PATIENT GIVENPRN NAUSEA MEDICATION PER ORDER. PATIENT DENIES ANY FURTHER NEEDS. CALL LIGHT IN REACH.
--- NOTE | 2017-06-25 04:24 | NUR ---
PATIENT IS RESTINGIN BED WITH EYES CLOSED, RR 18
--- NOTE | 2017-06-25 05:13 | NUR ---
PATIENT RESTED WELL FOR THE MAJORITY OF THE SHIFT. PATIENT RECEIVED PRN PAIN AND NAUSEA MEDICATIONS MULTIPLE TIMES. PATIENT IS INDEPENDENT IN THE ROOM. PATIENT IS ON A REG DIET. PATIENT ATE A SANDWICH BOX LAST NIGHT. PATIENT IS AAOX3 AND USES CALL LIGHT APPROPRIATELY.
--- NOTE | 2017-06-25 06:48 | NUR ---
PATIENTS MORNING MEDICATIONS GIVEN PER ORDER. PATIENT GIVEN PRN PAIN AND NAUSEA MEDICATION PER ORDER. PATIENT DENIES ANY FURTHER NEEDS CALL LIGHT IN REACH.
--- NOTE | 2017-06-25 07:19 | NUR ---
RECIEVED BEDSIDE REPORT FROM FORTUNATO ARTIS AND FORTUNATO FREEMAN. PT SLEEPING WELL, BREATHING EVEN AND UNLABORED.
[2017-06-25] MEDS ORDERED: HYDROMORPHONE HC2 MG PO (08:03)
--- NOTE | 2017-06-25 09:25 | NUR ---
PT ATE BREAKFAST VITALS WERE TAKEN AND WAS THEN DISCHARGED TO HOME
[2017-11-23] MEDS ORDERED: BACLOFEN10 MG PO (14:22)
[2017-11-23] MEDS ORDERED: PROMETHAZINE12.5 M1 PO (14:23)
[2017-11-23] MEDS ORDERED: NAMENDA XR28 MG PO (14:25)
[2017-11-23] MEDS ORDERED: PROTONIX40 MG PO (14:26)
[2017-11-23] MEDS ORDERED: GAVILAX17 GM PO (14:28)
[2017-11-23] MEDS ORDERED: ZOFRAN ODT4 MG PO (14:28)
== END 2017-06-25 09:30 | disposition home or self-care (01) | DRG 74 ==
LOC: MS 17:42
PROVIDERS: ADMIT Internal Medicine
DX: G90.59 Complex regional pain syndrome I of other specified site (principal); K56.60 Unspecified intestinal obstruction; R10.9 Unspecified abdominal pain; K59.01 Slow transit constipation; Z88.5 Allergy status to narcotic agent; Z79.899 Other long term (current) drug therapy
CPT/HCPCS: 80053; 81001; 83735; 84436; 84443; 84479; 85025; J1170; J1650; J1885; J2405; J2550; J7120

== ENCOUNTER 2017-09-23 09:21 | Emergency (ER) | payer MEDICARE, OTHER ==
[~2017-09-23] VITALS: Ht 165.1 cm; Wt 72.6 kg
[~2017-09-23 09:21] MED LIST changes: +HYDROMORPHONE HC2 MG PO
--- OUTSIDE RECORDS SUMMARY | 2017-09-23 09:41 | XMS | Clinical Summary ---
Demographics + + + | Address | [address] | | | [place] [address] | + + + | Home Phone | | + + + | Preferred Language | Unknown | + + + | Marital Status | Single | + + + | Alevism Affiliation | UNKNOWN | + + + | Race | Other Race | + + + | Ethnic Group | Not or | + + + Author + + + | Author | [facility] | + + + | Organization | [facility] | + + + | Address | Unknown | + + + | Phone | Unavailable | + + + Support + + + + + | Name | Relationship | Address | Phone | + + + + + | , Patricia Keller | ECON | [address] | | | | | [place] | | | | | [address] | | + + + + + | Sofi Jeff | ECON | Unknown | | + + + + + | Arianna Jed | ECON | [address] | | | | | [place] | | | | | [address] | | + + + + + Care Team Providers + +------+ + | Care Crepe Maker Name | Role | Phone | + +------+ + | Nu Gandhi PA-C | PP | | + +------+ + Allergies + + + + + + | Active Allergy | Reactions | Severity | Noted | Comments | | | | | Date | | + + + + + + | Morphine | Anaphylaxis | High | 05/05/20 | Any | | | | | 11 | plant/derivative of | + + + + + + Current Medications + + +--------+---------+------+------+-------+ | Prescription | Sig. | Disp. | Refills | Star | End | Statu | | | | | | t | Date | s | | | | | | Date | | | + + +--------+---------+------+------+-------+ | citalopram | Take 1 tablet by | 30 | 3 | 06/14 | | Activ | | (CELEXA) 10 mg | mouth Daily. | tablet | | 01/03 | | e | | tablet | | | | 11 | | | + + +--------+---------+------+------+-------+ | traZODone | Take 1 tablet by | 30 | 3 | 06/14 | | Activ | | (DESYREL) 100 mg | mouth At Bedtime. | tablet | | 01/03 | | e | | tablet | | | | 11 | | | + + +--------+---------+------+------+-------+ Active Problems + + + | Problem | Noted Date | + + + | Reflex sympathetic dystrophy of the lower limb | 05/05/2011 | + + + | Allergy | | + + + Social History + +-------+ +--------+------+ | Tobacco Use | Types | Packs/Day | Years | Date | | | | | Used | | + +-------+ +--------+------+ | Never Assessed | | | | | + +-------+ +--------+------+ + + + | Sex Assigned at | Date Recorded | | | | + + + | Not on file | | + + + Last Filed Vital Signs + + + + | Vital Sign | Reading | Time Taken | + + + + | Blood Pressure | 128/61 | 06/24/2011 9:30 PM PDT | + + + + | Pulse | 80 | 06/24/2011 9:30 PM PDT | + + + + | Temperature | 36.9 C (98.4 F) | 06/24/2011 9:30 PM PDT | + + + + | Respiratory Rate | 16 | 06/24/2011 9:30 PM PDT | + + + + | Oxygen Saturation | 99% | 06/24/2011 9:30 PM PDT | + + + + | Inhaled Oxygen | - | - | | Concentration | | | + + + + | Weight | 75.7 kg (166 lb 14.2 | 06/19/2011 12:01 PM PDT | | | oz) | | + + + + | Height | 167 cm (5' 5.75") | 06/01/2011 9:00 AM PDT | + + + + | Body Mass Index | 27.14 | 06/19/2011 12:01 PM PDT | + + + + Plan of Treatment + + + + + | Health Maintenance | Due Date | Last Done | Comments | + + + + + | IMM HPV (1 of 3 - | | | | | Female 3 Dose | 3 | | | | Series) | | | | + + + + + | HIV Screening | | | | | | 7 | | | + + + + + | Tetanus | | | | | | 1 | | | + + + + + | Cervical Cancer | | | | | Screening | 3 | | | + + + + + | IMM Influenza (#1) | | | | | | 7 | | | + + + + + Results Not on filefrom Last 3 Months Insurance + +--------+ +------+ + + | Payer | Benefi | Subscriber | Type | Phone | Address | | | t Plan | ID | | | | | | / | | | | | | | Group | | | | | + +--------+ +------+ + + | [employer] | BLUE | [id number] | PPO | [phone] | [address] [address] [place] | | | CROSS | [address] | | [phone] | [place], [place] | | | [place] | | | | [address] | | | PPP/PP | | | | | | | O | | | | | | | NETWOR | | | | | | | K | | | | | + +--------+ +------+ + + + +--------+ +--------+ + + | Guarantor Name | Accoun | Relation to | Date | Phone | Billing Address | | | t Type | Patient | of | | | | | | | | | | + +--------+ +--------+ + + | BRODY FARAH | Person | Self [birth year] | Home: | [address] | | | [place] | | 1989 | [phone] | [place] | | | [place] | | | [phone] | + +--------+ +--------+ + + Advance Directives Patient has advance directives. For more information, please contact:[facility] [place] [address]
--- OUTSIDE RECORDS SUMMARY | 2017-09-23 09:41 | XMS ---
Demographics + + + | Address | [address] | | | [place] [address] | + + + | Preferred Language | Unknown | + + + | Marital Status | Unknown | + + + | Catholic Affiliation | Unknown | + + + | Race | Unknown | + + + | Ethnic Group | Unknown | + + + Author + + + | Author | [facility] | + + + | Organization | [facility] | + + + | Address | [address] | | | [place] [address] | + + + | Phone | | + + + Care Team Providers + + + + | Care Semiconductor Engineer Name | Role | Phone | + + + + Unavailable | Unavailable | + + + + PROBLEMS +---------+ + + +--------+ + + | Type | Condition | ICD9-CM | [id number] | Onset | Condition | SNOMED | | | | Code | Code | Dates | Status | Code | +---------+ + + +--------+ + + | Problem | Fibromyalg | M79.7 | | | Active | [id number] | | | ia | | | | | | | | affecting | | | | | | | | multiple | | | | | | | | sites | | | | | | +---------+ + + +--------+ + + | Problem | Abdominal | | R10.11 | | Active | [id number] | | | pain, | | | | | | | | chronic, | | | | | | | | right | | | | | | | | upper | | | | | | | | quadrant | | | | | | +---------+ + + +--------+ + + | 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 | 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 | | | transit | | | | | | | | constipati | | | | | | | | on | | | | | | +---------+ + + +--------+ + + | 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 | | | 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 | | | | | | +---------+ + + +--------+ + + | 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 | | | | | | +---------+ + + +--------+ + + ALLERGIES Unknown Allergies SOCIAL HISTORY No smoking Hx information available PLAN OF CARE VITAL SIGNS MEDICATIONS + + + + + + + +--------+ | Medicati | Instruct | Dosage | Frequenc | Start | End Date | Duration | Status | | on | ions | | y | Date | | | | + + + + + + + +--------+ | Mirena | | | | | | | Active | | 20 | | | | | | | | | MCG/24HR | | | | | | | | + + + + + + + +--------+ | Golytely | Orally | as | | 06 Feb, | | | Active | | 236 GM | Once a | directed | | 2016 | | | | | | month | - 4000 | | | | | | | | | ml | | | | | | + + + + + + + +--------+ | Albutero | inhalati | 2 puffs | 6h | | | | Active | | l 90 | on qid | | | | | | | | MCG/ACT | | | | | | | | + + + + + + + +--------+ | Zofran 8 | Orally | 1 tablet | 24h | | | | Active | | MG | Once a | | | | | | | | | day | | | | | | | + + + + + + + +--------+ | Sucralfa | Orally | 10 ml | | 10 Cole, | | | Active | | te 1 | Three | | | 2016 | | | | | GM/10ML | times a | | | | | | | | | day 30 | | | | | | | | | minutes | | | | | | | | | before | | | | | | | | | meals | | | | | | | + + + + + + + +--------+ | Pantopra | Orally | 1 tablet | 12h | | | | Active | | zole | Twice a | | | | | | | | Sodium | day | | | | | | | | 40 mg | | | | | | | | + + + + + + + +--------+ | Pregabal | Orally | . | | 19 May, | | | Active | | in 150 | One | | | 2016 | | | | | MG | capsule | | | | | | | | | in the | | | | | | | | | morning | | | | | | | | | and 2 | | | | | | | | | capsules | | | | | | | | | at | | | | | | | | | night | | | | | | | + + + + + + + +--------+ | Cycloben | Orally | 2 tablet | | May, | | | Active | | zaprine | Once a | | | 2016 | | | | | HCl 7.5 | day at | | | | | | | | MG | bedtime | | | | | | | | | (Muscle | | | | | | | | | relaxant | | | | | | | | | ) | | | | | | | + + + + + + + +--------+ | Glycerin | Rectal | 1 enema | 24h | 10 Cole, | | | Active | | | Once a | as | | 2016 | | | | | (Laxativ | day | needed | | | | | | | e) 5.6 | | | | | | | | | GM/DOSE | | | | | | | | + + + + + + + +--------+ | Lactulos | Orally | 15 ml | | 19 Gerardo, | | | Active | | e 10 | Once a | | | 2016 | | | | | GM/15ML | day as | | | | | | | | | needed | | | | | | | | | for | | | | | | | | | constipa | | | | | | | | | tion | | | | | | | + + + + + + + +--------+ | Metformi | Orally | 1 tablet | 24h | | | | Active | | n HCl | Once a | with | | | | | | | 500 MG | day | meals | | | | | | + + + + + + + +--------+ | Dextrome | Orally | 1 | 12h | | | | Active | | thorphan | every 12 | capsule | | | | | | | -Quinidi | hrs | | | | | | | | ne 20-10 | | | | | | | | | MG | | | | | | | | + + + + + + + +--------+ | Ketorola | Orally | 1 tablet | 8h | 19 Gerardo, | | | Active | | c | every 8 | with | | 2017 | | | | | Trometha | hrs | food or | | | | | | | mine 10 | | milk as | | | | | | | mg | | needed | | | | | | | | | for pain | | | | | | + + + + + + + +--------+ | Prometha | Rectal | 1 | 12h | | | | Active | | zine HCl | every 12 | supposit | | | | | | | 12.5 MG | hrs | ory as | | | | | | | | | needed | | | | | | + + + + + + + +--------+ | Ketamine | Nasally | | 3h | | | | Active | | HCl . | Every 3 | | | | | | | | | hours | | | | | | | + + + + + + + +--------+ | Ketorola | Injectio | 1 ml as | 6h | 28 Jun, | | | Active | | c | n every | needed | | 2017 | | | | | Trometha | 6 hrs | | | | | | | | mine 15 | | | | | | | | | MG/ML | | | | | | | | + + + + + + + +--------+ | Lamotrig | Orally | 1 tablet | 12h | | | | Active | | ine 200 | Twice a | | | | | | | | MG | day | | | | | | | + + + + + + + +--------+ | Namenda | Orally | 1 | 12h | | | | Active | | XR 28 MG | Twice a | capsule | | | | | | | | day | | | | | | | + + + + + + + +--------+ RESULTS No Results PROCEDURES No Known procedures IMMUNIZATIONS No Known Immunizations"
--- OUTSIDE RECORDS SUMMARY | 2017-09-23 09:41 | XMS | Clinical Summary ---
Demographics + + + | Address | [address] | | | [place] [address] | + + + | Home Phone | | + + + | Preferred Language | Unknown | + + + | Marital Status | Single | + + + | Confucianist Affiliation | UNKNOWN | + + + [...] [address] | | | | | [place] | | | | | [address] | | + + + + + | Sofi Jeff | ECON | Unknown | | + + + + + | Arianna Jed | ECON | [address] | | | | | [place] | | | | | [address] | | + + + + + Care Team Providers + +------+ + | Care Defense Attorney Name | Role | Phone | + [...] + | [employer] | BLUE | [id number] | PPO | [phone]- | [address] [address] [place] | | | CROSS | [address] | | [phone] | [place], [place] | | | [place] | | | | [phone] | | | PPP/PP | | | [...] Self | [birth year] | Home: | [address] | | | [place] | | 1989 | [phone] | [place] | | | [place] | | | [phone] | + +--------+ +--------+ + + Advance Directives Patient has advance directives. For more information, please contact:[facility] [employer] [place] [address]
--- OUTSIDE RECORDS SUMMARY | 2017-09-23 09:41 | XMS ---
Demographics + + + | Address | [address] | | | [place] [address] | + + + | Preferred Language | Unknown | + + + | Marital Status | Unknown | + + + | Yarsani Affiliation | Unknown | + + + | Race | Unknown | + + + | Ethnic Group | Unknown | + + + Author + + + | Author | [facility] | + + + | Organization | [facility] | + + + | Address | [address] | | | [place] [address] | + + + | Phone | | + + + Care Team Providers + + + + | Care Lan Specialist Name | Role | Phone | + + + + Unavailable | Unavailable | + + + + PROBLEMS +---------+ + + +--------+ + + | Type | Condition | ICD9-CM | [id number] | Onset | Condition | SNOMED | | | | Code | Code | Dates | Status | Code | +---------+ + + +--------+ + + | Problem | Fibromyalg | M79.7 | | | Active | [id number] | | | ia | | | | | | | | affecting | | | | | | | | multiple | | | | | | | | sites | | | | | | +---------+ + + +--------+ + + | Problem | Abdominal | | R10.11 | | Active | [id number] | | | pain, | | | | | | | | chronic, | | | | | | | | right | | | | | | | | upper | | | | | | | | quadrant | | | | | | +---------+ + + +--------+ + + | 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 | [id number] | | | transit | | | | | | | | constipati | | | | | | | | on | | | | | | +---------+ + + +--------+ + + | Problem | Complex | G90.50 | | | Active | [id number] | | | regional | | | [...] available PLAN OF CARE VITAL SIGNS MEDICATIONS Unknown Medications RESULTS No Results PROCEDURES No Known procedures IMMUNIZATIONS No Known Immunizations"
--- OUTSIDE RECORDS SUMMARY | 2017-09-23 09:41 | XMS ---
Demographics + + + | Address | [address] | | | [place] [address] | + + + | Preferred Language | Unknown | + + + | Marital Status | Unknown | + + + | Zoroastrianism Affiliation | Unknown | + + + | Race | Unknown | + + + | Ethnic Group | Unknown | + + + Author + + + | Author | [facility] | + + + | Organization | [facility] | + + + | Address | [address] | | | [place] [address] | + + + | Phone | | + + + Care Team Providers + + + + | Care Windrower Operator Name | Role | Phone | + + + + Unavailable | Unavailable | + + + + PROBLEMS +---------+ + + +--------+ + + | Type | Condition | ICD9-CM | [id number] | Onset | Condition | SNOMED | | | | Code | Code | Dates | Status | Code | +---------+ + + +--------+ + + | Problem | Fibromyalg | M79.7 | | | Active | [id number] | | | ia | | | | | | | | affecting | | | | | | | | multiple | | | | | | | | sites | | | | | | +---------+ + + +--------+ + + | Problem | Abdominal | | R10.11 | | Active | [id number] | | | pain, | | | | | | | | chronic, | | | | | | | | right | | | | | | | | upper | | | | | | | | quadrant | | | | | | +---------+ + + +--------+ + + | 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 | [id number] | | | transit | | | | | | | | constipati | | | | | | | | on | | | | | | +---------+ + + +--------+ + + | Problem | Complex | G90.50 | | | Active | [id number] | | | regional | | | [...] +---------+ + + +--------+ + + ALLERGIES + + + + +--------+ | Substance | Reaction | Event Type | Date | Status | + + + + +--------+ | Morphine | Anaphylaxis | Non Drug | Jun, | Active | | | | Allergy | | | + + + + +--------+ SOCIAL HISTORY No smoking Hx information available PLAN OF CARE + +---------+ | Activity | Details | + +---------+ +---+ | | +---+ + + + | Follow Up | 6 Weeks Reason:null | + + + VITAL SIGNS + + + + | Height | 64.5 in | 2017-07-07 | + + + + | Weight | 149.0 lbs | 2017-07-07 | + + + + | BMI | 25.18 kg/m2 | 2017-07-07 | + + + + | Temperature | 98.0 degrees Fahrenheit | 2017-07-07 | + + + + | Heart Rate | 73 /min | 2017-07-07 | + + + + | Blood pressure systolic | 120 mm Hg | 2017-07-07 | + + + + | Blood pressure diastolic | 79 mm Hg | 2017-07-07 | + + + + MEDICATIONS + + + + + + [...] Orally | 10 ml | | 10 Nov, | | | Active | | te 1 | Three | | | 2017 | | | | | GM/10ML | [...] | 1 tablet | 8h | 19 May, | | | Active | | c | every 8 | with | | 2016 | | | | | Trometha | [...] | 1 enema | 24h | 10 Nov, | | | Active | | | Once a | as | | 2017 | | | | | (Laxativ | [...] | | | | | | | -Dilciaidi | hrs | | | | | [...] | Orally | 2 tablet | | 19 May, | | | Active | | zaprine | Once a | | | 2017 | | | | | HCl 7.5 [...] + + +--------+ RESULTS No Results PROCEDURES + + + + + | Procedure | Date Ordered | Related Diagnosis | Body Site | + + + + + | Office Visit, Est | Jul 07, 2017 | | | | Pt., Level 3 | | | | + + + + + IMMUNIZATIONS No Known Immunizations"
--- OUTSIDE RECORDS SUMMARY | 2017-09-23 09:41 | XMS ---
Demographics + + + | Address | [address] | | | [place] [address] | + + + | Preferred Language | Unknown | + + + | Marital Status | Unknown | + + + | Sikh Affiliation | Unknown | + + + | Race | Unknown | + + + | Ethnic Group | Unknown | + + + Author + + + | Author | [facility] | + + + | Organization | [facility] | + + + | Address | [address] | | | [place] [address] | + + + | Phone | | + + + Care Team Providers + + + + | Care Tower Operator Name | Role | Phone | + + + + Unavailable | Unavailable | + + + + PROBLEMS +---------+ + + +--------+ + + | Type | Condition | ICD9-CM | [id number] | Onset | Condition | SNOMED | | | | Code | Code | Dates | Status | Code | +---------+ + + +--------+ + + | Problem | Fibromyalg | M79.7 | | | Active | [id number] | | | ia | | | | | | | | affecting | | | | | | | | multiple | | | | | | | | sites | | | | | | +---------+ + + +--------+ + + | Problem | Abdominal | | R10.11 | | Active | [phone] | | | pain, | | | | | | | | chronic, | | | | | | | | right | | | | | | | | upper | | | | | | | | quadrant | | | | | | +---------+ + + +--------+ + + | 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 | [id number] | | | transit | | | | | | | | constipati | | | | | | | | on | | | | | | +---------+ + + +--------+ + + | Problem | Complex | G90.50 | | | Active | [id number] | | | regional | | | [...] +---------+ + + +--------+ + + ALLERGIES No Information SOCIAL HISTORY Never Assessed PLAN OF CARE + +---------+ | Activity | Details | + +---------+ +---+ | | +---+ + + + | Pending Test | Comp. 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 | 12/2009 | + + + + | Surgical History | External Hemorrhoid at 12 o | 01/2010 | | | clock position, anal skin | | | | tags two at 1 o clock | | | | position. Hemorrhoidectomy | | | | with removal of the skin | | | | tags. 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 Small bowel normal | | | | mucosa. Capsule did not | | | | enter the colon. Abdominal | | | | x-ray in [facility] 05/2017 showed | | | | no pill cam. | | + + + + | Hospitalization History | Gastric Emptying study: | 10/20/2015 | | | Showed complete emptying of | | | | the stomach in four hours, | | | | half time for emptying was | | | | 145 minutes which was | | | | slightly delayed. | | + + + + | Hospitalization History | Upper GI: moderate to | 06/2015 | | | severe gastroesophageal | | | | reflux. | | + + + + | Hospitalization History | Intractable nausea and | 10/2015 | | | vomiting | | + + + + | Hospitalization History | EGD: Isolated area of | 10/2015 | | | inflammation along the | | | | cardia of the stomach. | | + + + + | Hospitalization History | Exacerbation of | 07/2016 | | | gastroparesis secondary to | | | | constipation. | | + + + + | Hospitalization History | Exacerbation of | 04/2016 | | | gastroparesis secondary to | | | | constipation. 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 Exacerbation of | 03/18-08/2017 | | | IBS. Treated with IV | | | | toradol. Was advised PRN | | | | Toradol and Meloxicam. | | | | Referred to GI and Pain | | | | Service. Started on | | | | Cymbalta also for chronic | | | | pain. | | + + + + | Hospitalization History | [facility]: Abdominal pain | 04/08- | | | exacerbation | | + + + + | Hospitalization History | [facility]: Abdominal pain | 04/18-05/30 | | | exacerbation | | + + + + | Hospitalization History | [facility] Pain clinic visit: | 04/25/17 | | | diagnosed to have | | | | Fibromyalgia. Was | | | | recommended to start on | | | | Pregabalin. Referrred to | | | | Pain psychology. | | + + + + | Hospitalization History | [facility]. | 05/09/17 | | | Dr Giancarlo Azevedo. | | | | Consideration for Small | | | | Bowel Webs/stenosis with | | | | Capsule Endoscopy Exam. | | | | Superficial Abdominal Pain | | | | with Lidoderm patch. | | + + + + | Hospitalization History | [facility]: Abdominal pain | 06/07- | | | exacerbation. Discussed | | | | with Dr Gaspar(GI) in | | | | hospital, suggestion to | | | | treat as cyclic vomiting | | | | syndrome. Trial of | | | | Imitrex, had no relief with | | | | pain. | | + + + + | Hospitalization History | [facility]: Abdominal Pain | 06/22-10/30 | | | exacerbation | | + + + + | Hospitalization History | Hydrogen Breath Test | 07/2017 | | | Negative | | + + + +"
--- OUTSIDE RECORDS SUMMARY | 2017-09-23 09:41 | XMS ---
Demographics + + + | Address | [address] | | | [place] [address] | + + + | Preferred Language | Unknown | + + + | Marital Status | Unknown | + + + | Mandaen Affiliation | Unknown | + + + | Race | Unknown | + + + | Ethnic Group | Unknown | + + + Author + + + | Author | [facility] | + + + | Organization | [facility] | + + + | Address | [address] | | | [place] [address] | + + + | Phone | | + + + Care Team Providers + + + + | Care Regenerator Operator Name | Role | Phone | + + + + Unavailable | Unavailable | + + + + PROBLEMS +---------+ + + +--------+ + + | Type | Condition | ICD9-CM | [id number] | Onset | Condition | SNOMED | | | | Code | Code | Dates | Status | Code | +---------+ + + +--------+ + + | Problem | Fibromyalg | M79.7 | | | Active | [id number] | | | ia | | | | | | | | affecting | | | | | | | | multiple | | | | | | | | sites | | | | | | +---------+ + + +--------+ + + | Problem | Abdominal | | R10.11 | | Active | [id number] | | | pain, | | | | | | | | chronic, | | | | | | | | right | | | | | | | | upper | | | | | | | | quadrant | | | | | | +---------+ + + +--------+ + + | 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 Was | | | | recommended to start on | | | | Pregabalin. Referrred to | | | | Pain psychology. | | + + + + | Hospitalization History | [facility]. | 05/09/17 | | | Dr [...]
--- OUTSIDE RECORDS SUMMARY | 2017-09-23 09:41 | XMS ---
Demographics + + + | Address | [address] | | | [place] [address] | + + + | Preferred Language | Unknown | + + + | Marital Status | Unknown | + + + | Latter Day Affiliation | Unknown | + + + | Race | Unknown | + + + | Ethnic Group | Unknown | + + + Author + + + | Author | [facility] | + + + | Organization | [facility] | + + + | Address | [address] | | | [place] [address] | + + + | Phone | | + + + Care Team Providers + + + + | Care Shell Sieve Operator Name | Role | Phone | + + + + Unavailable | Unavailable | + + + + PROBLEMS +---------+ + + +--------+ + + | Type | Condition | ICD9-CM | [id number] | Onset | Condition | SNOMED | | | | Code | Code | Dates | Status | Code | +---------+ + + +--------+ + + | Problem | Fibromyalg | M79.7 | | | Active | [id number] | | | ia | | | | | | | | affecting | | | | | | | | multiple | | | | | | | | sites | | | | | | +---------+ + + +--------+ + + | Problem | Abdominal | | R10.11 | | Active | [id number] | | | pain, | | | | | | | | chronic, | | | | | | | | right | | | | | | | | upper | | | | | | | | quadrant | | | | | | +---------+ + + +--------+ + + | 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 | [phone] | | | transit | | | | | | | | constipati | | | | | | | | on | | | | | | +---------+ + + +--------+ + + | Problem | Complex | G90.50 | | | Active | [phone] | | | regional | | | [...]
[2017-11-23] MEDS ORDERED: BACLOFEN10 MG PO (14:22)
[2017-11-23] MEDS ORDERED: PROMETHAZINE12.5 M1 PO (14:23)
[2017-11-23] MEDS ORDERED: NAMENDA XR28 MG PO (14:25)
[2017-11-23] MEDS ORDERED: PROTONIX40 MG PO (14:26)
[2017-11-23] MEDS ORDERED: ZOFRAN ODT4 MG PO (14:28)
[2017-11-23] MEDS ORDERED: GAVILAX17 GM PO (14:28)
== END 2017-09-23 16:33 | disposition home or self-care (01) ==
LOC: ED 09:21
DX: K29.70 Gastritis, unspecified, without bleeding (principal); Z88.5 Allergy status to narcotic agent; Z79.84 Long term (current) use of oral hypoglycemic drugs; Z79.899 Other long term (current) drug therapy; K21.9 Gastro-esophageal reflux disease without esophagitis; Z90.49 Acquired absence of other specified parts of digestive tract
CPT/HCPCS: 80053; 81001; 83690; 84703; 85025; 96361; 96374; 96375; 96376; 99283; J1885; J2550; J7030

== ENCOUNTER 2017-09-24 12:50 | Inpatient (IN) | payer MEDICARE, OTHER ==
[~2017-09-24] VITALS: Ht 165.1 cm; Wt 72.6 kg
--- OUTSIDE RECORDS SUMMARY | ~2017-09-24 | XMS | Encounter Summary ---
Demographics + + + | Address | [address] | | | [place] [address] | + + + | Home Phone [...] | Unavailable | + + + Support +------+ +---------+ + | Name | Relationship | Address | Phone | +------+ +---------+ + ECON | Unknown | | +------+ +---------+ + Care Team Providers + +------+-------+ | Care Commercial Portfolio Manager Name | Role | Phone | + +------+-------+ | Justo Vazquez MD | PCP | tel | + +------+-------+ Encounter Details +--------+ + + + + | Date | Type | Department | Care Team | Description | +--------+ + + + + | 07/24/ | MyChart | Dig[facility]ive [facility] | Kenny Gaspar MD | Dietary information | | 2017 | Encounter | Center at [facility] 4th | [address] | | | | | Floor [address] [facility] | [facility], | | | | | [facility] | [place] [address] | | | | | Mailcode: UHN83 | [phone] | | | | | [place] | | | | | | [address] [place], [place] | | | | | | [address] | | | | | | [phone] | | | +--------+ + + + [...] | | + + +---------+ + | No | | | | + + +---------+ + + + + | Sex Assigned at | Date Recorded | | | | + + + | Not on file | | + + + as of this encounter Plan of Treatment +--------+---------+ + + + | Date | Type | Specialty | Care Team | Description | +--------+---------+ + + + | 10/11/ | Office | Pain Management | Jamel Madden, | | | 2016 | Visit | | PhD [address] | | | | | | [place], [place] | | | | | | [address] | | | | | | [phone] | | | | | | | | +--------+---------+ + + + as of this encounter Visit Diagnoses Not on filein this encounter"
--- OUTSIDE RECORDS SUMMARY | ~2017-09-24 | XMS | Encounter Summary ---
Demographics + + + | Address | [address] | | | [place] [address] | + + + | Home Phone [...] Care Team Providers + +------+-------+ | Care Director Of Cardiac Cath Lab Name | Role | Phone | + +------+-------+ | Justo Vazquez MD | PCP | tel | + +------+-------+ Encounter Details +--------+ + + + + | Date | Type | Department | Care Team | Description | +--------+ + + + + | 09/20/ | Telephone | [facility] at [facility] | [address], | | | 2017 | | 15th Floor [address] | [facility] [address] [facility] | | | | | [address] | [address] | | | | | Code: [address] | [place], [place] | | | | | for Health and | [address] | | | | | Healing,15th Floor | [phone] | | | | | [place], [place] | | | | | | [address] | | | | | | [phone] | | | +--------+ + + + [...] | | | | | | [place], [place] | | | | | | [address] | | | | | | [phone] | | | | | | | | +--------+---------+ + + + as of this encounter Visit Diagnoses Not on filein this encounter"
--- NOTE | 2017-09-24 17:15 | NUR ---
PT TO FLOOR WITH ED RN'S XIMENA. PT ABLE TO AMBULATE TO BED ON OWN. PORT ACCESSED. PT RATES PAIN 5\10. ASKED FOR WARM BLANKETS AND JUICE. DR IN TO ASSESS PT.
--- NOTE | 2017-09-24 17:47 | NUR ---
PT CALLED TO MAKE SURE THE DR HAD ORDERED HER MIRALAX FOR MORNING. ASKED DR PERRY. ADMINISTERED SCHED. MED.
--- NOTE | 2017-09-24 19:15 | NUR ---
REPORT RECEIVED FROM OFFGOING RN.
--- NOTE | 2017-09-24 21:45 | NUR ---
PT ASSESSMENT COMPELTE. PT RATES PAIN 6.5-7/10 TO ABD. ALSO REPORTS NAUSEA. PRN PHENEGRAN AND TORADOL ADMINISTERED. BT'S ACTIVE. PT REPORTS TENDERNESS TO ABD PALPATION. PT REFUSES TO HAVE L FOOT ASSESSED FOR PEDAL PULSE, CMS. STATES THAT SHE HAS CHRONIC PAIN AND PREFERS THAT EXTREMITY NOT BE TOUCHED. PT REPORTS THAT SHE IS FOLLOWING EXCLUSION DIET, REQUESTS JUICE THAT IS 100% JUICE TO TAKE MIRALAX. PT ABLE TO DRINK 1 CUP OF APPLE JUICE WITH MIRALAX, TOLERATED WELL. PT UP TO BATHROOM INDEPENDENTLY WHILE DIE ENGRAVING SUPERVISOR IN ROOM. PT DENIES OTHER NEEDS AT THIS TIME. STATES "THIS MEDICATION USUALLY MAKES ME SLEEPY." CALL LIGHT WITHIN PT'S REACH.
--- NOTE | 2017-09-25 | NUR ---
PT RESTING IN BED WITH EYES CLOSED. RESPIRATIONS EVEN AND UNLABORED, NO S/SX OF DISTRESS NOTED. PT APPEARS TO BE SLEEPING. CALL LIGHT WITHIN REACH.
--- NOTE | 2017-09-25 01:48 | NUR ---
PT ASSESSMENT COMPLETE. PT STATES THAT PAIN IS MINIMAL. REPORTS THAT NAUSEA IS "CREEPING BACK". ABD REMAINS TENDER TO PALPATION, SLIGHT DISTENSION NOTED. BT'S ACTIVE. PRN PHENERGRAN ADMINISTERED. PT NOTED TO HAVE LOW BP, MD TO BE NOTIFIED.
--- NOTE | 2017-09-25 03:45 | NUR ---
PT RESTING WITH EYES CLOSED. RESPIRATIONS EVEN AND UNLABORED. PT APPEARS TO BE SLEEPING. CALL LIGHT WITHIN PT REACH.
--- NOTE | 2017-09-25 05:12 | NUR ---
PT SLEPT MOST OF SHIFT. TORADOL X 1 FOR PAIN, PHENEGRAN X 2 FOR NAUSEA. ABD TENDER TO PALPATION, BT'S ACTIVE. SBA- IND IN ROOM. D5LR @ 75. KETAMINE NASAL SPRAY AT BEDSIDE. PT CLAIMS TO BE ON "ELIMINATION DIET", ABLE TO MAKE DIETARY NEEDS KNOWN.
--- NOTE | 2017-09-25 06:01 | NUR ---
PT ASSESSMENT COMPLETE. PT REPORTS GOOD CONTROL OF PAIN AT THIS TIME. STATES THAT NAUSEA IS SLIGHT, BUT MUCH BETTER AFTER PHENEGRAN. SLIGHT REDNESS AT ADHESIVE PORT DRESSING, PT STATES IT IS NORMAL FOR HER TO BE SENSITIVE TO ADHESIVE. BT'S ACTIVE, ABD TENDER TO PALPATION. PT WILL NOT ALLOW L FOOT TO BE TOUCHED DUE TO CHRONIC PAIN. PT DENIES FURTHER NEEDS AT THIS TIME. UP TO USE BATHROOM WITH ORACLE HRMS DEVELOPER IN ROOM.
--- NOTE | 2017-09-25 07:10 | NUR ---
RECIEVED BEDSIDE REPORT FROM FORTUNATO ALLAN. PT AWAKE, DENIED NEEDS.
--- NOTE | 2017-09-25 08:16 | NUR ---
PT C/O GAS PAIN, ENCOURAGED PT TO GO FOR WALK IN HALLS. PT NOW AMBULATING IN HALLS. PT REPORTED THAT SHE WANTS TO ADVANCE TO REGULAR DIET, HER "EXCLUSION DIET" RESTRICTS WHAT SHE CAN HAVE FROM THE CLEAR LIQUID MENU. ASKED PT IF SHE WAS FEELING NAUSEATED, PT STATED THAT SHE WAS FEELING "A LITTLE BIT NAUSEATED" AT THIS TIME. EDUCATED PT REGARDING POTENTIAL EFFECT OF ADVANCING DIET, PT VERBALIZED UNDERSTANDING, REPORTED THAT SHE STILL WANTS TO ADVANCE DIET. DIET ORDER ADVANCED PER ORDER, WILL MONITOR FOR TOLERANCE.
--- NOTE | 2017-09-25 08:45 | NUR ---
PT IS NOW SITTING UP IN BED, EATING REGULAR TEXTURE DIET. DENIES NAUSEA. REPORTED THAT HER ABDOMINAL PAIN HAS RESOLVED AFTER AMBULATING IN HALLS. PT REPORTED THAT SHE THINKS THE AMBULATION IN HALLS HELPED RESOLVE HER ABDOMINAL PAIN/CRAMPING, AND THAT SHE WAS ABLE TO PASS GAS. EDUCATED PT REGARDING AMBULATION, AND ASKED THAT SHE ATTEMPT TO AMBULATE IN HALLS 3-4 TIMES THIS SHIFT. PT VERBALIZED UNDERSTANDING.
--- NOTE | 2017-09-25 10:57 | NUR ---
PT C/O NAUSEA. GAVE PHENERGAN 12.5 MG PO PRN. ENCOURAGED PT TO AMBULATE. PT STATED THAT SHE WILL IN A LITTLE WHILE.
--- NOTE | 2017-09-25 11:48 | NUR ---
pt awake in bed took her some fresh ice water and tissue.
--- NOTE | 2017-09-25 15:22 | NUR ---
PT AMBULATING IN HALLS, TOLERATING WELL.
--- NOTE | 2017-09-25 15:37 | NUR ---
PT BACK TO ROOM, IN BED. C/O NAUSEA. GAVE PHENERGAN 6.25 MG IV PRN. PT STATED THAT SHE IS GOING TO ATTEMPT TO REST. CLOSED CURTAIN AND DOOR PER PT'S REQUEST.
--- NOTE | 2017-09-25 17:42 | NUR ---
PT AMBULATED IN HALLS, AROUND "LOOP" X 4. IS NOW BACK TO BED. ATE 100% OF REGULAR TEXTURE DINNER PRIOR TO AMBULATION. TOLERATED WELL. DENIED NEEDS AT THIS TIME.
--- NOTE | 2017-09-25 18:40 | NUR ---
PT ATE 100% OF BREAKFAST, NO LUNCH, AND 100% OF DINNER, REGULAR TEXTURE. PT C/O NAUSEA OFF AND ON THIS SHIFT, WHICH WAS NOT ASSOCIATED WITH PO INTAKE PER PT. PT AMBULATED IN HALLS X 4 THIS SHIFT, AND REPORTED HAVING A SMALL BM, WELL PASSING GAS WITH AMBULATION. PT REPORTS FEELING CONSTIPATED. BOWEL TONES ACTIVE X 4 QUADRANTS. PT STEADY ON FEET, AMBULATED INDEPENDANTLY.
--- NOTE | 2017-09-25 19:10 | NUR ---
BEDSIDE REPORT RECEIVED FROM OFFGOING RN. PT LYING IN BED AWAKE, REQUESTS PAIN MEDICATION. INFORMED PT THAT WINDOW GLAZIER WILL LOOKINTO WHAT PAIN MEDICATION IS AVAILABLE. PT STATES UNDERSTANDING. DENIES OTHER NEEDS. CALL LIGHT WITHIN REACH.
--- NOTE | 2017-09-25 20:30 | NUR ---
PT ASSESSMENT COMPLETE. PT RATES PAIN 6.5-7/10. PRN TORADOL ADMINISTERED. PAIN TO ABD. BT'S ACTIVE. ABD TENDER TO PALPATION. PT ABLE TO INDEPENDENTLY AMBULATE TO BATHROOM AND BACK TO BED. PT SITTINGUP USING CELL PHONE. DENIES OTHER NEEDS AT THIS TIME. CALL LIGHT WITHIN REACH.
--- NOTE | 2017-09-26 00:07 | NUR ---
PT LYING IN BED WITH EYES CLOSED. WAKES EASILY FOR SCHEDULED MEDICATION ADMINISTRATION. PT STATES THAT PAIN IS MUCH LOWER AFTER DOSE OF TORADOL EARLIER. ASKS THAT SCHEDULED MEDS BE "BROUGHT IN ON TIME" THROUGHOUT THE NIGHT SO THAT SHE "DOES NOT GET OFF SCHEDULE." EDUCATION PROVIDED TO PT THAT HER MEDS ARE ORDERED NEEDED. PT STATES UNDERSTANDING, REQUESTS APPLE JUICE. DENIES FURTHER NEEDS AT THIS TIME. CALL LIGHT WITHIN REACH.
--- NOTE | 2017-09-26 01:30 | NUR ---
PT RESTING IN BED WITH EYES OPEN UPON WRTIER'S ENTRY TO ROOM. PT ASKS WHETHER SHE CAN HAVE "PROMETHAZINE OR TORADOL, OR BOTH". EXPLAINED THAT SIEBEL SOLUTION ARCHITECT WILL SEE WHICH MEDICATIONS ARE AVAILABLE TO PT, PT STATES UNDERSTANDING.
--- NOTE | 2017-09-26 01:45 | NUR ---
PRN PHENERGAN ADMINISTERED, DILUTED IN 20 ML SALINE, INFUSED OVER 10 MIN VIA PUMP.
--- NOTE | 2017-09-26 03:14 | NUR ---
PT RESTING IN BED WITH EYES CLOSED. RESPIRATIONS EVEN AND UNLABORED. PT APPEARS TO BE SLEEPING. CALL LIGHT WITHIN REACH.
--- NOTE | 2017-09-26 05:02 | NUR ---
PT UTILIZES CALL LIGHT REQUESTS PAIN MEDICATION FOR PAIN 05/23 TO ABD AND BACK. PRN TORADOL ADMINISTERED. PT ASSESSMENT COMPLETE. UNCHANGED FROM PRIOR. PT ASKS "SHOULD I HAVE NAUSEA MEDICATION COMING UP." INFORMED PT PHENERGAN NOT DUE YET, ZOFRAN AVAILABLE PT STATES UNDERSTANDING. DENIES NEEDS AT THIS TIME. CALL LIGHT WITHIN REACH.
--- NOTE | 2017-09-26 05:39 | NUR ---
PT RESTED OFF AND ON THROUGHOUT THE SHIFT. PHENERGAN X 1, TORADOL X 2. IND IN ROOM. D5LR @ 75, USING CALL LIGHT APPROPRIATELY FOR NEEDS.
--- NOTE | 2017-09-26 07:50 | NUR ---
PATIENT IN BED. DOES NOT NEED ANYTHING AT THIS TIME. WHITEBOARD UPDATED, ROOM TIDIED.
--- NOTE | 2017-09-26 07:54 | NUR ---
PT SITTING UP IN BED. C/O NAUSEA, NO EMESIS. GAVE PHENERGAN 6.25 MG IV PRN. ADJUSTED ROOM TEMPURATURE FOR PT PER HER REQUEST.
--- NOTE | 2017-09-26 09:37 | NUR ---
PT IN BED, ATE 100% OF BREAKFAST. REPORTS THAT NAUSEA HAS RESOLVED WITH PROMETHAZINE THAT WAS GIVEN. ADJUSTED HEAT IN ROOM FOR PT PER HER REQUEST. PROVIDED FRESH ICE WATER AND WARM BLANKET.
--- NOTE | 2017-09-26 10:18 | NUR ---
PATIENT REFUSED SHOWER AT THIS TIME, SHE WILL PROBABLY BE DISCHARGED. IF SHE IS NOT DISCHARGED, I WILL RE-OFFER SHOWER. TOWELS, TOOTHBRUSH, TOOTHPASTE, COMB, ETC. ALL PUT OUT IN BATHROOM FOR PATIENT TO USE AT HER LEISURE. OTHERWISE, SHE STATES SHE DOES NOT NEED ANYTHING AT THIS TIME.
--- NOTE | 2017-09-26 11:16 | NUR ---
PT C/O NAUSEA, PHENERGAN NOT YET AVAILABLE, AND PT DECLINED ZOFRAN. C/O 05/23 PAIN, GAVE TORADOL 30 MG IV PRN. PT REPORTS PAIN IS TO ABDOMEN, DESCRIBES PAIN FEELING OF CONSTANT "TIGHTNESS".
--- NOTE | 2017-09-26 11:33 | NUR ---
PT RESTING IN BED, ACKNOWLEDGED MY PRESENCE. SAID SHE WAS REALLY EXHAUSTED, VIOCED A PRAYER FOR HER AND WILL CONTINUE TO FOLLOW NEEDED
--- NOTE | 2017-09-26 11:39 | NUR ---
PATIENT UP AMBULATING. DOES NOT NEED ANYTHING AT THIS TIME.
--- NOTE | 2017-09-26 11:41 | NUR ---
DR. PERRY IN TO SEE PT. PT EATING LUNCH. REPORTS THAT WHEN PAIN AND ANTI NAUSEA MEDICATIONS WEAR OFF, SHE FEELS POORLY, AND THAT IF SHE WERE AT HOME AND FELT THAT WAY, SHE WOULD WANT TO GO TO THE E.R[facility] TO BE SEEN. DR. PERRY STATED THAT PT WILL SPEND ANOTHER NIGHT IN THE HOSPITAL. PT STATED THAT SHE IS GOING TO AMBULATE IN HALLS MORE. SHE HAS AMBULATED IN HALLS ONCE THUS FAR THIS SHIFT.
--- NOTE | 2017-09-26 12:17 | NUR ---
PT AT 100% OF LUNCH. REPORTED THAT SHE HAD A LARGE BM, BUT THAT SHE STILL WANTS TO TAKE MIRILAX BOWEL PREP IN APPLE JUICE. DENIED OTHER NEEDS AT THIS TIME.
--- NOTE | 2017-09-26 13:18 | NUR ---
PT IN BED, REPORTED NAUSEA, REQUESTED PHENERGAN, BUT ASKED THAT IT BE GIVEN AFTER SHE AMBULATES IN HALLS. PT STATED THAT SHE WILL CALL WHEN SHE FINISHES WALKING IN HALLS.
[2017-09-26] MEDS ORDERED: CYCLOBENZAPRINE5 MG PO (14:44)
[2017-09-26] MEDS ORDERED: KETOROLAC60 MG/2 ML IM (14:47)
[2017-09-26] MEDS ORDERED: LYRICA75 MG PO (15:03)
--- NOTE | 2017-09-26 15:55 | NUR ---
PATIENT RESTING. MADE NEW HEAT PACKS FOR HER.
--- NOTE | 2017-09-26 15:57 | NUR ---
PT C/O NAUSEA, STATED THAT HER NAUSEA HAS IMPROVED SINCE RECIEVING PHENERGAN IV PRN, BUT NOT RESOLVED, DECLINED ZOFRAN. HAS HAD NO EPISODES OF EMESIS. IS NOW UP TO TOILET, ATTEMPTING TO HAVE BM. WHEN PT C/O NAUSEA, SHE STATED THAT WHEN SHE HAS BEEN CONSTIPATED IN THE PAST, AND HER BOWELS BEGIN MOVING SHE EXPERIENCES AN INCREASE IN HER NAUSEA. ENCOURAGED PT TO AMBULATE, AND CONTINUE TO DRINK PLENTY OF PO FLUIDS. PT VERBALIZED AGREEMENT.
--- NOTE | 2017-09-26 18:45 | NUR ---
PT'S APETITE WAS GOOD THIS SHIFT, BUT PT DID STILL C/O ABDOMINAL PAIN AND NAUSEA OFF AND ON THROUGHOUT SHIFT. PT REFUSED PRN ZOFRAN, BUT DID TAKE PRN PHENERGAN FOR NAUSEA. TOOK PRN TORADOL FOR C/O ABDOMINAL PAIN. PT NOW SALINE LOCKED. AMBULATES INDEPENDANTLY. NO EPISODES OF EMESIS. PT DID HAVE LARGE BM THIS AFTERNOON, THEN TOOK BOWEL PREP MIRILAX MIXED WITH APPLE JUICE FOR CONSTIPATION. PT HAS NOW HAD 3 LIQUID STOOLS SINCE TAKING MIRILAX BOWEL PREP.
--- NOTE | 2017-09-26 19:20 | NUR ---
BEDSIDE REPORT RECEIVED FROM OFFGOING RN. PT STATES THAT SHE WAS UP TO SHOWER, IS NOW EXPERIENCING INCREASED PAIN AND NAUSEA. EXPLAINED TO PT THAT I WILL CHECK AND SEE WHAT IS AVAILABLE AND ADMINISTER. PT STATES UNDERSTANDING. DENIES OTHER NEEDS AT THIS TIME. CALL LIGHT WITHIN REACH.
--- NOTE | 2017-09-26 20:39 | NUR ---
PT ASSESSMENT COMPLETE. PT RATES PAIN 05/23. PRN TORADOL ADMINISTERED WELL PRN PHENERGAN FOR NAUSEA. BT'S ACTIVE, PT CONTINUES TO REPORT ABD TENDERNESS, AND MILD DISTENSION NOTED. PT REPORTS HAVING LOOSE TO LIQUID STOOL FOLLOWING BOWEL PREP ADMINISTRATION. ASSESSMENT OTHERWISE WNL. PT DENIES OTHER NEEDS AT THIS TIME. CALL LIGHT WITHIN REACH.
--- NOTE | 2017-09-26 23:00 | NUR ---
PT RESTING IN BED WITH EYES CLOSED. RESPIRATIONS EVEN AND UNLABORED. PT APPEARS TO BE SLEEPING. CALL LIGHT WITHIN REACH.
--- NOTE | 2017-09-27 01:15 | NUR ---
PT RESTING IN BED WITH EYES CLOSED. RESPIRATIONS EVEN AND UNLABORED. NO S/SX OF DISTRESS NOTED. PT APPEARS TO BE SLEEPING. CALL LIGHT WITHIN REACH.
--- NOTE | 2017-09-27 03:40 | NUR ---
PT CALLS, REQUESTS NAUSEA MEDICATION. PRN PHENERGAN ADMINISTERED. PT ASSESSMENT COMPLETED. UNCHANGED FROM PREVIOUS. BT'S ACTIVE. ABD REMAINS DISTENDED, TENDER TO TOUCH. PT DENIES HAVING ANY MORE LOOSE/SOFT STOOLS THIS EVENING. PT DENIES OTHER NEEDS AT THIS TIME. CALL LIGHT WITHIN REACH.
--- NOTE | 2017-09-27 04:58 | NUR ---
PT RESTED MOST OF SHIFT. TORADOL X1, PHENERGAN X 2. NO BM THIS SHIFT. PT IND. IN ROOM. IV SL.
--- NOTE | 2017-09-27 06:52 | NUR ---
PT CALLS, REQUESTS PAIN MEDICATION FOR PAIN 6.5/10 TO ABDOMEN RADIATING TO BACK. PRN TORADOL ADMINISTERED.
--- NOTE | 2017-09-27 07:10 | NUR ---
PT IN BED ASLEEP. HAS NO IV INFUSING, IS ON RA. PER NOC FORTUNATO ALLAN, PT ASKED NOT TO BE DISTURBED AT SHIFT CHANGE REPORT. REPORT RECIEVED FROM FORTUNATO ALLAN AT PT DOORWAY.
--- NOTE | 2017-09-27 07:55 | NUR ---
PATIENT ASLEEP IN BED. WHITEBOARD UPDATED, ROOM TIDIED.
--- NOTE | 2017-09-27 08:18 | NUR ---
PT IN BED, TOOK AM MEDICATIONS. C/O NAUSEA, GAVE PHENERGAN 6.25 MG IV PRN. PT'S PORT FLUSHED WITH 10 ML SALINE FLUSH, THEN 5 ML 100 UNITS PER ML HEPARIN FLUSH. PT REPORTS PAIN TO ABDOMEN IMPROVED, RATES PAIN 4/10. DENIES OTHER NEEDS.
--- NOTE | 2017-09-27 09:54 | NUR ---
PT SLEEPING SOUNDLY, NO S/S DISTRESS OR DISCOMFORT.
--- NOTE | 2017-09-27 10:32 | NUR ---
PT'S BP WAS 93/55. NOTIFIED DR. PERRY OF THIS BP. NO NEW ORDERS.
--- NOTE | 2017-09-27 10:36 | NUR ---
PATIENT VERY TIRED, FELL BACK ASLEEP BEFORE I LEFT THE ROOM. EMPTIED HAT IN BATHROOM. REFILLED BOTH CUPS OF ICE WATER. PATIENT WANTS TO WAIT AND SEE IF SHE GETS DISCHARGED BEFORE SHOWERING.
--- NOTE | 2017-09-27 10:40 | NUR ---
PT RESTING QUIETLY IN BED. GAVE SCHEDULED CARAFATE. NO C/O NAUSEA OR PAIN AT THIS TIME.
--- NOTE | 2017-09-27 11:42 | NUR ---
PT SITTING UP IN BED, WELCOMED ME IN SHE IS ALERT AND ORIENTED. MENTIONED THAT SHE THOUGHT SHE WILL BE DC'D TODAY-SHE SEEMED READY. PT EXPRESSED THE GUILT AND DIFFICULTY SHE HAS ENCOUNTERED WITH CHRONIC PAIN. PT EXPRESSED HOW MUCH OF LIFE SHE FEELS SHE HAS MISSED OUT ON-FEELING LIKE IT JUST PASSES HER BY. PT REQUESTED PRAYER, WILL CONTINUE TO FOLLOW
--- NOTE | 2017-09-27 12:14 | NUR ---
PATIENT SLEEPING, DOES NOT NEED ANYTHING AT THIS TIME.
[2017-09-27] MEDS ORDERED: PHENERGAN25 MG PR (13:15)
--- NOTE | 2017-09-27 13:17 | NUR ---
DEACCESSED PT'S PORT, AREA AROUND INSERTION SITE, WHERE BIOPATCH WAS IS REDDENED, IS THE AREA SUPERIOR TO THIS, WHERE OCCLUSIVE DRESSING WAS ON SKIN. AREA NOT HOT, NO DRAINAGE. AREA IS TENDER. NOTIFIED DR. PERRY. PT REPORTS THAT SHE HAS HAD A SENSITIVITY TO ADHESIVES IN THE PAST.
[2017-09-27] MEDS ORDERED: LYRICA150 MG PO (13:21)
[2017-09-27] MEDS ORDERED: LYRICA225 MG PO (13:21)
[2017-09-27] MEDS ORDERED: CYCLOBENZAPRINE10 MG PO (13:22)
--- NOTE | 2017-09-27 13:26 | NUR ---
DR. PERRY ORDERED INFLUENZA VACCINE, PT WAS OFFERED THIS, BUT SHE REFUSED. REPORTED THAT SHE HAS NOT HAD THE INFLUENZA VACCINE THIS SEASON, BUT DOES NOT WANT TO RECIEVE VACCINE.
[2017-11-23] MEDS ORDERED: BACLOFEN10 MG PO (14:22)
[2017-11-23] MEDS ORDERED: PROMETHAZINE12.5 M1 PO (14:23)
[2017-11-23] MEDS ORDERED: NAMENDA XR28 MG PO (14:25)
[2017-11-23] MEDS ORDERED: PROTONIX40 MG PO (14:26)
[2017-11-23] MEDS ORDERED: GAVILAX17 GM PO (14:28)
[2017-11-23] MEDS ORDERED: ZOFRAN ODT4 MG PO (14:28)
== END 2017-09-27 13:55 | disposition home or self-care (01) | DRG 392 ==
LOC: ED 12:50 → MS 12:51
PROVIDERS: ADMIT Internal Medicine
DX: R10.11 Right upper quadrant pain (principal); G90.59 Complex regional pain syndrome I of other specified site; M79.7 Fibromyalgia; K59.01 Slow transit constipation; K21.9 Gastro-esophageal reflux disease without esophagitis
CPT/HCPCS: 80053; 83690; 96372; 96374; 96375; 96376; 99285; J1885; J2405; J2550; J7030; J7120

== ENCOUNTER 2017-09-30 09:37 | Inpatient (IN) | payer MEDICARE, OTHER ==
[~2017-09-30] VITALS: Ht 165.1 cm; Wt 67.5 kg
[~2017-09-30 09:37] MED LIST changes: +CYCLOBENZAPRINE10 MG PO; +KETOROLAC60 MG/2 ML IM; +LYRICA150 MG PO; +LYRICA225 MG PO; +PHENERGAN25 MG PR
[2017-11-23] MEDS ORDERED: BACLOFEN10 MG PO (14:22)
[2017-11-23] MEDS ORDERED: PROMETHAZINE12.5 M1 PO (14:23)
[2017-11-23] MEDS ORDERED: NAMENDA XR28 MG PO (14:25)
[2017-11-23] MEDS ORDERED: PROTONIX40 MG PO (14:26)
[2017-11-23] MEDS ORDERED: ZOFRAN ODT4 MG PO (14:28)
[2017-11-23] MEDS ORDERED: GAVILAX17 GM PO (14:28)
== END 2017-10-05 12:38 | disposition home or self-care (01) | DRG 392 ==
LOC: IVT-DS 09:37 → MS 17:42
PROVIDERS: ADMIT Internal Medicine
PROC: 06HY33Z Insertion of Infusion Device into Lower Vein, Percutaneous Approach (ICD-10-PCS; principal; 2017-10-02)
DX: R10.11 Right upper quadrant pain (principal); G90.59 Complex regional pain syndrome I of other specified site; R11.2 Nausea with vomiting, unspecified; G89.4 Chronic pain syndrome; M79.7 Fibromyalgia; K59.00 Constipation, unspecified
CPT/HCPCS: 36569; 80053; 82550; 83735; 85025; 85651; 86038; 86140; 86431; J1200; J1885; J2405; J2550; J7120

== ENCOUNTER 2018-02-04 11:31 | Emergency (ER) | payer MEDICARE, OTHER ==
[~2018-02-04] VITALS: Ht 165.1 cm; Wt 74.0 kg
[~2018-02-04 11:31] MED LIST changes: +BACLOFEN10 MG PO; +GAVILAX17 GM PO; +PROTONIX40 MG PO
== END 2018-02-04 12:40 | disposition left against medical advice (07) ==
LOC: ED 11:31
DX: Z53.21 Procedure and treatment not carried out due to patient leaving prior to being seen by health care provider (principal)

== ENCOUNTER 2018-02-13 05:45 | Day surgery (SDC) | payer MEDICARE, OTHER ==
[~2018-02-13] VITALS: Ht 165.1 cm; Wt 74.8 kg
[2018-02-13] MEDS ORDERED: NORCO 5-325 TA1 EACH PO (05:59)
--- NOTE | 2018-02-13 10:43 | NUR ---
02/13/18 1043 Darlin Mtz 0839 PT ARRIVED IN PACU CRYING AND C/O BLADDER PAIN. ANESTHESIA GAVE FENTANYL IV. 0848 VERSED 1MG GIVEN IV TO HELP RELAX PT. 0950 NEW ORDER FOR TYLENOL 1GM IV GIVEN FOR C/O PAIN. PT CRYING AND MOVING ALL OVER IN BED. 0859 VERSED 1MG GIVEN TO HELP RELAX PT. MOANING AND CRYING. 0914 DILAUDID 0.4MG GIVEN IVP. 0919 NO CHANGE IN PAIN. DILAUDID 0.4MG GIVEN IV. UP TO BSC. VOIDED RED COLORED URINE. BACK IN BED CRYING. 0926 DILAUDID 0.2MG GIVEN IVP. ANESTHESIA AND DR AT BEDSIDE. NEW ORDERS RECEIVED. 0941 DILAUDID 0.5MG GIVEN IVP. MUSIC PLAYING AT BEDSIDE TO HELP RELAX PT. 0945 ATIVAN 0.5MG GIVEN IVP. PT'S MOTHER AT BEDSIDE. 0953 PT CRYING. DILAUDID 0.5MG GIVEN IVP. UP TO BSC. VOIDED. BACK IN BED. C/O BURNING WHILE URINATING. 1003 DILAUDID 0.5MG GIVEN IVP. PT RESTING. STATES "MY PAIN IS NOW A 6, FROM A 10". 1015 DILAUDID 0.5MG GIVEN FOR 6/10 BLADDER PAIN. PT COMFORTABLE AND WANTING TO GO BACK TO ROOM.
--- NOTE | 2018-02-13 11:20 | NUR ---
LE 1035 PT RETURNED FROM PACU, AWAKE TALKING WITH STAFF. PT RATES PAIN 6/10 AT THIS TIME. PT STATES HE PAIN "IS WAY BETTER." ASSESSMENT AND VITALS COMPLETE. PT UP TO BATHROM, AMBULATES WITH RN. TOLERATED WELL. BACK TO BED. PT RESTING. NO FURTHER NEEDS AT THIS TIME. CALL LIGHT IN REACH.
--- NOTE | 2018-02-13 11:23 | NUR ---
IN TO CHECK ON PT, PT STATES SHE IS DOING BETTER. RATES PAIN A 5/10. UP TO RESTROOM, TOLERATED WELL. CRACKERS AND JUICE GIVEN. DISCUSSED FURTHER PAIN MANAGEMENT WITH ORAL MEDICATIONS. PT UNDERSTANDS. NO FURTHER NEEDS AT THIS TIME. CALL LIGHT IN REACH.
--- NOTE | 2018-02-13 12:04 | NUR ---
IN TO CHECK ON PT, PT AWAKE. UP TO RESTROOM, TOLERATED WELL. NORCO AND PHENERGAN GIVEN FOR PAIN. PT REQUEST MEDICATION FOR URINARY DISCOMFORT. WILL CONTACT DR. SPENCE FOR ORDER. NO FURTHER NEEDS AT THIS TIME. PT EATING CRACKERS.
--- NOTE | 2018-02-13 12:30 | NUR ---
PT RATES PAIN AT 6/10 STATES THIS IS OK NOT GREAT BUT OK.
--- NOTE | 2018-02-13 13:17 | NUR ---
LE 1245 IN TO CHECK ON PT, PT STATES SHE IS DOING GOOD. ASSISTED UP TO RESTROOM, TOLERATED WELL. PT START "I AM A LITTLE DROWSY, BUT MY PAIN IS BETTER." ADVISED PT THAT SHE HAS MEET CRITERIA TO DISCHARGE, PT STATES SHE WOULD LIKE TO GO HOME. PORT FLUSHED AND HEP LOCKED. PT DRESSING WITHOUT ASSISTANCE. TOLERATED WELL. MOTHER TERESITA TO FLOOR FOR DISCHAGE INSTRUCTIONS. NO FURTHER QUESTIONS AT THIS TIME. PT WHEELED OUT OF UNIT TO AWAITING CAR, TOLERATED WELL.
--- NOTE | 2018-02-13 13:18 | NUR ---
I WAS UNABLE TO VISIT WITH PT, BUT DID CONNECT WITH HER MOTHER TERESITA. SHE SEEMED COMFORTABLE WITH STATE OF MIND OF PT AND HAD NO REAL CONCERNS. WILL CONTINUE TO FOLLOW NEEDED
--- NOTE | 2018-02-20 08:17 | OR ---
[facility] [address] [place] [address] Signed DATE OF OPERATION: 02/13/2018 SURGEON: Kamlesh Spence MD PREOPERATIVE DIAGNOSIS: Interstitial cystitis. POSTOPERATIVE DIAGNOSIS: Severe hemorrhagic interstitial cystitis. NAMES OF PROCEDURES: 1. Diagnostic cystoscopy. 2. Hydrodistention with cauterization of Hunner lesions. ANESTHESIA: General. ESTIMATED BLOOD LOSS: 50 mL. COMPLICATIONS: None. SPECIMENS: None. INDICATIONS FOR PROCEDURE: Ms. Farah is a very pleasant 27-year-old female, who has a medical history significant for chronic pain, primarily abdominal and musculoskeletal in origin. For the past year or so, she had also been experiencing urinary frequency as well as dysuria and suprapubic discomfort. She was seen by me last week in the office and at the time I suspected a diagnosis of interstitial cystitis. At that time, she was offered to undergo a cystoscopy with hydrodistention in an attempt to get her bladder pain under control. She presents today to undergo cystoscopy with hydrodistention, after discussion of the risks and benefits while in clinic. OPERATIVE FINDINGS: 1. On cystoscopy, there is diffuse erythema noted within the bladder upon initial inspection. Bilateral ureteral orifices are in their normal anatomic location. 2. After infusion of approximately 500 mL of water into the bladder, the patient began Electronically Signed By: KAMLESH SPENCE MD 02/20/18 0817 PATIENT NAME: BRODY FARAH OPERATIVE REPORT DATE OF : 89 REPORT #: [id number] PHYSICIAN: KAMLESH SPENCE MD PCP: MARCELINO PERRY MD REPORT IS CONFIDENTIAL AND NOT TO BE RELEASED WITHOUT AUTHORIZATION [facility] [address] [place], [place] [address] Signed to experience cracking of the mucosa along with multiple petechiae. At the areas of cracking, she began to hemorrhage rather profusely requiring cauterization with the bipolar loop device. DESCRIPTION OF PROCEDURE: After informed consent was obtained, the patient was taken back to the operating room. She was transferred [facility] the [facility] to the operating room table, where general anesthesia was induced. She was placed in the dorsal lithotomy position and her genitalia prepped and draped in a standard sterile fashion. Using a 30-degree lens on a 17-Cypriot introducer, rigid cystoscope was inserted through the urethra into her bladder under direct visualization. Panendoscopic views of the bladder were then obtained. Please see above findings. I then began to fill her bladder as per protocol. Her bladder remained full with approximately 500 mL of irrigation fluid for 5 minutes. At which time the hemorrhage from her Hunner lesions and from the cracking of her bladder wall mucosa was severe enough that I felt at this time it warranted cauterization. I removed the 17-Cypriot sheath and inserted a resectoscope with the bipolar loop. Initially, it was very difficult to get good visualization within the bladder due to the amount of mucosal bleeding. However, I was ultimately able to find the 2 largest bleeders on the posterior wall of the bladder and gently cauterized them with the bipolar loop. Once I was satisfied that I cauterized any of the significant mucosal bleeders, I removed the resectoscope. I inserted a 18-Cypriot Reina catheter temporarily to irrigate her bladder. I was able to irrigate a few small clots from the bladder and then completely emptied her bladder before removing the Reina catheter. The procedure was then terminated. The patient tolerated the procedure well without any complication. She will now be transferred to the postanesthesia care unit in stable condition. DISPOSITION: Once the patient's pain is under adequate control, she will be discharged to home in stable condition in the care of her mother, who is an RN. She is scheduled to return to clinic in one month on March 15 at around 4:30 p.m. for postoperative followup. She will be sent home today with Phenergan 25 mg p.o. q.6 hours p.r.n. nausea and vomiting, dispense #20, Bactrim Double Strength p.o. b.i.d. for a total of 5 days, and [place] 5/325 p.o. q.6 hours p.r.n. pain, dispense #20. Kamlesh Spence MD AR/JAGUARL /[id number] Electronically Signed By: KAMLESH SPENCE MD 02/20/18 0817 PATIENT NAME: BRODY FARAH OPERATIVE REPORT DATE OF : 89 REPORT #: [id number] PHYSICIAN: KAMLESH SPENCE MD PCP: MARCELINO PERRY MD REPORT IS CONFIDENTIAL AND NOT TO BE RELEASED WITHOUT AUTHORIZATION [address] [address] Signed Copies: ~ Electronically Signed By: KAMLESH SPENCE MD 02/20/18 0817 PATIENT NAME: BRODY FARAH OPERATIVE REPORT DATE OF : 89 REPORT #: [id number] PHYSICIAN: KAMLESH SPENCE MD PCP: MARCELINO PERRY MD REPORT IS CONFIDENTIAL AND NOT TO BE RELEASED WITHOUT AUTHORIZATION
== END 2018-02-13 13:10 | disposition home or self-care (01) ==
LOC: DS 05:45
PROVIDERS: Urology
PROC: 0T7B8ZZ Dilation of Bladder, Via Natural or Artificial Opening Endoscopic (ICD-10-PCS; principal; 2018-02-13 06:45)
PROC: 0T5B8ZZ Destruction of Bladder, Via Natural or Artificial Opening Endoscopic (ICD-10-PCS; 2018-02-13 06:45)
DX: N30.10 Interstitial cystitis (chronic) without hematuria (principal); J45.909 Unspecified asthma, uncomplicated; Z79.891 Long term (current) use of opiate analgesic; Z79.899 Other long term (current) drug therapy; Z90.49 Acquired absence of other specified parts of digestive tract; Z88.5 Allergy status to narcotic agent
CPT/HCPCS: 00840; J0131; J0690; J1170; J1885; J2060; J2250; J2405; J2704; J2765; J3010

== ENCOUNTER 2018-03-22 15:24 | Emergency (ER) | payer MEDICARE, OTHER ==
[~2018-03-22] VITALS: Ht 165.1 cm; Wt 74.8 kg
[~2018-03-22 15:24] MED LIST changes: +NORCO 5-325 TA1 EACH PO
[2018-03-22] MEDS ORDERED: GINGER ROOT550 MG PO (15:44)
== END 2018-03-22 18:11 | disposition home or self-care (01) ==
LOC: ED 15:24
DX: R10.84 Generalized abdominal pain (principal); Z88.5 Allergy status to narcotic agent; Z79.899 Other long term (current) drug therapy
CPT/HCPCS: 80053; 81001; 82150; 83690; 84703; 85025; 96361; 96374; 96375; 99283; J1170; J1885; J2550; J7030

== ENCOUNTER 2018-05-01 08:47 | Emergency (ER) | payer MEDICARE, OTHER ==
[~2018-05-01] VITALS: Ht 165.1 cm; Wt 74.8 kg
[~2018-05-01 08:47] MED LIST changes: +GINGER ROOT550 MG PO
[2018-05-01] MEDS ORDERED: PROMETHAZINE12.5 M1 PO (10:33)
== END 2018-05-01 11:42 | disposition home or self-care (01) ==
LOC: ED 08:47
DX: R10.9 Unspecified abdominal pain (principal); G89.29 Other chronic pain; Z88.5 Allergy status to narcotic agent; Z79.899 Other long term (current) drug therapy
CPT/HCPCS: 80053; 81001; 83690; 84703; 85025; 96361; 96374; 96375; 99283; J1200; J1630; J1885; J2550; J7030

== ENCOUNTER 2018-05-13 18:51 | Emergency (ER) | payer MEDICARE, OTHER ==
[~2018-05-13] VITALS: Ht 165.1 cm; Wt 72.6 kg
[2018-05-13] MEDS ORDERED: KETOROLAC15 MG/1 M1 (19:23)
== END 2018-05-13 23:00 | disposition home or self-care (01) ==
LOC: ED 18:51
DX: K31.89 Other diseases of stomach and duodenum (principal); R11.2 Nausea with vomiting, unspecified; Z88.5 Allergy status to narcotic agent; Z88.8 Allergy status to other drugs, medicaments and biological substances; Z79.899 Other long term (current) drug therapy
CPT/HCPCS: 81001; 87088; 96374; 96375; 99283; J1170; J1885; J2550; J7030

== ENCOUNTER 2018-07-03 07:05 | Day surgery (SDC) | payer MEDICARE, OTHER ==
[~2018-07-03] VITALS: Ht 165.1 cm; Wt 72.6 kg
[~2018-07-03 07:05] MED LIST changes: +BELLADONNA-OPIU30 MG PR; +KETOROLAC15 MG/1 M1; +URIBEL CAPSULE1 EACH PO
--- NOTE | 2018-07-03 11:39 | NUR ---
PT HAS BEEN UPDATED AND WARM BLANKETS ON DURING PREOP STAY. UP TO BR WARM BLANKETS ON.
--- NOTE | 2018-07-03 11:51 | NUR ---
MET WITH PT-ALERT AND ORIENTED. HER MOTHER TERESITA LEFT RM TO GO TO [place] JUST I ENTERED. PT WAS SOMEWHAT ANXIOUS, BUT HAS HAD PRECEDURE BEFORE, SO WAS A LITTLE MORE PREPARED. SHE IS HOPING PAIN WON'T BE QUITE INTENSE PREVIOUS, BUT THE RESULT SHE STATED IS STILL WORTH IT. PT REQUESTED PRAYER, WILL FOLLOW NEEDED
--- NOTE | 2018-07-03 12:52 | NUR ---
07/03/18 Nehal[address] Kay Cardoza 1243 PT ARRIVED TO PACU WITH ORAL AIRWAY IN PLACE AND JAW THRUST NEEED TO MAINTAIN AIRWAY. RESP EVEN AND UNLABORED. MD ORDER TO TITERATE IV FLUIDS TO MAINTAIN URINE TO LIGHT PINK. URINE NOTES TO BE BRIGHT RED ON ARRIVAL. PT NONAROUSABLE.
--- NOTE | 2018-07-03 15:23 | NUR ---
PT ARRIVES TO DS RM 5 FROM PACU AWAKE AND ALERT. PT STATES PAIN 7/10 ON ARRIVAL DESCRIBING IT "SHARP, STABBING" PAINS. PT DENIES NAUSEA. PT VSS. MOTHER AT BEDSIDE. PT ABLE TO AMBULATE TO BR WITH RN ASSIST AND VOID QS. PT BACK IN BED AND DRINKING WATER AND EATING PUDDING. WARM BLANKET PROVIDED. WILL CONTINUE TO MONITOR.
[2018-07-03] MEDS ORDERED: BACTRIM DS TAB1 EACH PO (16:08)
[2018-07-03] MEDS ORDERED: NORCO 10-325 T1 EACH PO (16:08)
--- NOTE | 2018-07-03 16:17 | NUR ---
C/O PAIN 05/23, REQ MORE IV DILAUDID. 0.5MG GIVEN. RA SAT 100%
--- NOTE | 2018-07-03 17:01 | NUR ---
REQ TO HAVE PAIN PILLS AND WANTS TO GO HOME. GETTING DRESSED.
--- NOTE | 2018-07-03 17:13 | NUR ---
HAS BEEN TO BR X3 SOME PINK URINE. TOOK FLUIDS CRACKERS PUDDING BRANDON WELL. RATES PAIN 6/10 FEELS THIS IS GOOD FOR HER. WANTS TO GO HOME. DR SPENCE CALLED FOR PHENERGAN PO TO TAKE WITH PAIN PILLS.
--- NOTE | 2018-07-03 17:27 | NUR ---
PT IS REQUESTING ORAL PHENERGAN TO GO WITH FleepOR. DR. SPENCE CONTACTED AND AGREES TO CALL IN MEDICATION TO [facility]. DC CRITERIA MET. PT DRESSES SELF WITH HELP FROM MOTHER. DC INSTRUCTIONS GIVEN IN PRESENCE OF PT AND MOTHER. ALL QUESTIONS ANSWERED. PT DC'S VIA WC FROM DS RM 5 WITH MOTHER.
--- NOTE | 2018-07-04 11:14 | OR ---
[facility] [address] [place], [place] [address] Signed DATE OF OPERATION: 07/03/2018 SURGEON: Kamlesh Spence MD PREOPERATIVE DIAGNOSIS: Severe interstitial cystitis. POSTOPERATIVE DIAGNOSIS: Severe interstitial cystitis, with hemorrhage present. NAMES OF PROCEDURES: 1. Diagnostic cystoscopy with hydrodistention. 2. Cauterization of Hunner ulcers. ANESTHESIA: General. ESTIMATED BLOOD LOSS: 20 mL. COMPLICATIONS: None. SPECIMENS: None. INDICATIONS FOR PROCEDURE: Brody is a very pleasant 28-year-old female with a complicated medical history. She has a history of chronic pain syndrome and presented to my clinic earlier this year with severe lower abdominal pain that was ultimately determined to be due to chronic interstitial cystitis. She underwent cystoscopy with hydrodistention earlier this year, which resulted in approximately 80-90 percent improvement in her lower abdominal pain symptoms. She presents today to undergo repeat hydrodistention with cauterization of any possible hemorrhage that could occur during distention. OPERATIVE FINDINGS: 1. On cystoscopy, there was no evidence of any suspicious bladder masses or stones noted. Bilateral ureteral orifices are normal, in anatomic location. There was extensive and diffuse bladder wall irritation that is worse with distention of the bladder. With distention of the bladder, the mucosa began to crack in a transverse Electronically Signed By: KAMLESH SPENCE MD 07/04/18 1114 PATIENT NAME: BRODY FARAH OPERATIVE REPORT DATE OF : 89 REPORT #: [id number] PHYSICIAN: KAMLESH SPENCE MD PCP: MARCELINO PERRY MD REPORT IS CONFIDENTIAL AND NOT TO BE RELEASED WITHOUT AUTHORIZATION [facility] [address] [place], [place] [address] Signed orientation, which I had never seen before. Pictures of the mucosa were taken and given to the patient's mother. As the hydrodistention continued, Hunner ulcers began to appear, which did require cauterization due to active hemorrhage. 2. At the end of the procedure, a 20-Togolese Reina catheter was inserted into the patient's bladder and connected to gravity drainage. I did flush the patient's bladder multiple times in order to irrigate out any residual blood clots from the procedure. The patient's catheter will remain in place until she awakes in the PACU. DESCRIPTION OF PROCEDURE: After informed consent was obtained, the patient was taken to the operating room. She was transferred from the [facility] to the operating room table, where general anesthesia was induced. She was placed in the dorsal lithotomy position and her genitalia prepped and draped in a standard sterile fashion. Using a 30-degree lens on a 22.5-Togolese sheath, a rigid cystoscope was gently inserted through the urethra and into her bladder. The patient's bladder was then drained of urine. I then began to fill the bladder with water slowly and performed a thorough diagnostic cystoscopy. Please see above findings. Once the patient's bladder began to fill, the mucosa began to crack in a transverse orientation. Random areas of the bladder began to spontaneously hemorrhage. These spontaneous hemorrhages were cauterized gently with a Bugbee unipolar device. I continued to cauterize as the patient's bladder remained distended for approximately 10 minutes. As the patient's bladder filled and became full of irrigant, the irrigant began to leak around the cystoscope, indicating poor bladder compliance and possible detrusor instability. Once the patient's bladder had been distended for around 10 minutes and adequate hemostasis was achieved with Bovie cautery, the cystoscope was removed from the patient's bladder. A 20-Togolese two-way Reina catheter was inserted into the patient's bladder and connected to gravity drainage. The patient's bladder was manually irrigated multiple times in order to evacuate any residual blood clots. The procedure was then terminated. The patient tolerated the procedure well without any complication. She will now be transferred to the Postanesthesia Care Unit in stable condition. DISPOSITION: Ms. Farah will be discharged to home later today in stable condition. I described the details of today's procedure with her mother and answered all of her questions. The patient will be sent home with [place] 10/, dispense #30 p.r.n. pain, along with Bactrim double strength for a total of 5 days. She was also given oral Phenergan 25 mg q.8 hours p.r.n. nausea, dispense #20. She will return to clinic in approximately 6 weeks for her first postoperative evaluation. Electronically Signed By: KAMLESH SPENCE MD 07/04/18 1114 PATIENT NAME: BRODY FARAH OPERATIVE REPORT DATE OF : 89 REPORT #: [id number] PHYSICIAN: KAMLESH SPENCE MD PCP: MARCELINO PERRY MD REPORT IS CONFIDENTIAL AND NOT TO BE RELEASED WITHOUT AUTHORIZATION [address] [address] Signed Kamlesh Spence MD AR/MODL /[id number] Copies: ~ Electronically Signed By: KAMLESH SPENCE MD 07/04/18 1114 PATIENT NAME: BRODY FARAH OPERATIVE REPORT DATE OF : 89 REPORT #: [id number] PHYSICIAN: KAMLESH SPENCE MD PCP: MARCELINO PERRY MD REPORT IS CONFIDENTIAL AND NOT TO BE RELEASED WITHOUT AUTHORIZATION
== END 2018-07-03 17:15 | disposition home or self-care (01) ==
LOC: OPS 07:05 → DS 07:05 → OPS 10:10
PROVIDERS: Urology
PROC: 0T7B8ZZ Dilation of Bladder, Via Natural or Artificial Opening Endoscopic (ICD-10-PCS; principal; 2018-07-03 10:10)
PROC: 0T5B8ZZ Destruction of Bladder, Via Natural or Artificial Opening Endoscopic (ICD-10-PCS; 2018-07-03 10:10)
DX: N30.11 Interstitial cystitis (chronic) with hematuria (principal); J45.909 Unspecified asthma, uncomplicated; Z88.5 Allergy status to narcotic agent; Z79.899 Other long term (current) drug therapy
CPT/HCPCS: 86850; 86900; 86901; J0696; J1100; J1170; J1885; J2175; J2250; J2405; J2704; J2765; J3010; J7120

== ENCOUNTER 2018-07-18 20:54 | Emergency (ER) | payer MEDICARE, OTHER ==
[~2018-07-18] VITALS: Ht 162.6 cm; Wt 74.8 kg
[~2018-07-18 20:54] MED LIST changes: +BACTRIM DS TAB1 EACH PO; -KETOROLAC15 MG/1 M1; +NORCO 10-325 T1 EACH PO
[2018-07-19] MEDS ORDERED: HYDROXYZINE HCL50 MG PO (17:19)
[2018-07-19] MEDS ORDERED: CYCLOBENZAPRINE10 MG PO (17:27)
[2018-07-19] MEDS ORDERED: GLYCERIN L5.4 GM/5.4 PO (17:31)
[2018-07-19] MEDS ORDERED: PROMETHAZINE HC25 M1 PO (17:36)
[2018-07-20] MEDS ORDERED: KETOROLAC15 MG/1 M1 IM (09:26)
[2018-07-20] MEDS ORDERED: ONDANSETRON HCL4 MG PO (10:59)
[2018-07-20] MEDS ORDERED: VENTOLIN HFA18 GM INH (11:05)
[2018-07-20] MEDS ORDERED: LACTULOSE10 GM/15 M PO (11:06)
== END 2018-07-19 00:35 | disposition home or self-care (01) ==
LOC: ED 20:54
DX: G43.A0 Cyclical vomiting, in migraine, not intractable (principal); Z88.5 Allergy status to narcotic agent; Z88.8 Allergy status to other drugs, medicaments and biological substances; Z79.891 Long term (current) use of opiate analgesic; Z79.899 Other long term (current) drug therapy
CPT/HCPCS: 36415; 80048; 85025; 96361; 96374; 96375; 99284; J1170; J1885; J2550; J7030

== ENCOUNTER 2018-12-30 21:47 | Emergency (ER) | payer MEDICARE, OTHER ==
[~2018-12-30] VITALS: Ht 162.6 cm; Wt 79.4 kg
[~2018-12-30 21:47] MED LIST changes: +AMOXICILLIN500 MG PO; +GLYCERIN L5.4 GM/5.4 PO; +HYDROXYZINE HCL50 MG PO; +LACTULOSE10 GM/15 M PO; +ONDANSETRON HCL4 MG PO; +VENTOLIN HFA18 GM INH
--- OUTSIDE RECORDS SUMMARY | 2018-12-30 21:50 | XMS ---
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 Details: LWBS CRITERIA MET - Group Notification - 6 ED Visits in 6 Months - [facility] - Has Care Guidelines - PDMP CARE PROVIDERS MARCELINO PERRY Internal Medicine 07/18/2018-Current ROSELIA PHONE: [phone] ARON HANNAH Anesthesiology: Pain Medicine 07/18/2018-Current ( PHD) Parth PHONE: Unknown DR MARCELINO PERRY Primary Care Current PHONE: [phone] Allegra Gandhi Primary Care Current PHONE: Unknown Guidelines Source: [facility] Guidelines Date: 05/18/2018 Care Recommendation: PATIENT HAS HISTORY COMPLEX REEGIONAL PAIN SYNDROME WELL CYCLICAL ABDOMINAL PAIN/NAUSEA/VOMITING.\T\nbsp; UNDER TREATMENT WITH ARON HANNAH MD PHD PAIN MANAGMENT [facility].\T\nbsp; FOLLOW THIS REGIMEN WHEN PRESENTING TO ED FOR RESOLUTION OF SYMPTOMS: *HYDRATION IV *HYDROMORPHONE 1MG IV * KETOROLAC 30 MG IV *PROMETHAZINE 25MG IV Additional care guidelines exist for the following facilities: [facility] ( 11/02/2016 ) Care History Medical/Surgical 05/02/2018 [facility] - Patient is currently established with [facility]. If patient is seen in the ED during business hours. Please contact CHWs at [facility] at [phone] [phone]. Care Recommendation: This patient has had 5 or more Emergency Department visits in the last 12 months.\T\nbsp; Patient requires education on the scope and purpose of the ED as an acute care provider not a Primary Care Provider and should not be utilized for chronic conditions.\T\nbsp; If patient returns to ED please contact Community Health WorkerIlene at [phone]. These are guidelines and the provider should exercise clinical judgment when providing care. E.D. VISIT COUNT (12 MO.) 10 LEIDA Mauricio TOTAL 10 NOTE: Visits indicate total known visits. 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 - Unspecified abdominal pain 10/08/2018 15:00 [facility] [place] TYPE: Emergency COMPLAINT: - WOUND CHECK DIAGNOSES: - Unspecified contact dermatitis, unspecified cause - Other longterm (current) drug therapy - Allergy status to other drugs, medicaments and biological substances status - Encounter for surgical aftercare following surgery on the skin and subcutaneous tissue - Allergy status to narcotic agent status 10/07/2018 20:18 [facility] [place] TYPE: Emergency COMPLAINT: - POST OP ISSUE/POSS INFECTION DIAGNOSES: - Encounter for fitting and adjustment of other devices related to nervous system and special senses - Allergy status to other drugs, medicaments and biological substances status - Allergy status to narcotic agent status - INFECTION FOLLOWING A PROCEDURE, OTHER SURGICAL SI - Other chronic pain - Other superintendent marine oil terminal (current) drug therapy 07/18/2018 20:54 [facility] [place] TYPE: Emergency COMPLAINT: - ABD PAIN DIAGNOSES: - Nausea with vomiting, unspecified - superintendent marine oil terminal (current) use of opiate analgesic - Allergy status to narcotic agent status - Cyclical vomiting, not intractable - Other longterm (current) drug therapy - Allergy status to other drugs, medicaments and biological substances status 07/17/2018 12:43 [facility] [place] TYPE: Emergency COMPLAINT: - ABD PAIN/VOMITING DIAGNOSES: - Allergy status to narcotic agent status - Allergy status to other drugs, medicaments and biological substances status - Unspecified abdominal pain - Cyclical vomiting, not intractable - Other longterm (current) drug therapy 05/13/2018 18:51 [facility] [place] TYPE: Emergency COMPLAINT: - ABD PAIN,NAUSEA DIAGNOSES: - Allergy status to other drugs, medicaments and biological substances status - Other longterm (current) drug therapy - Allergy status to narcotic agent status - Epigastric pain - Other diseases of stomach and duodenum - Nausea with vomiting, unspecified 05/01/2018 08:48 [facility] [place] TYPE: Emergency COMPLAINT: - ABD PAIN/VOMITING/BACK PAIN DIAGNOSES: - Other superintendent marine oil terminal (current) drug therapy - Allergy status to narcotic agent status - Other chronic pain - Unspecified abdominal pain 03/22/2018 15:25 [facility] [place] TYPE: Emergency COMPLAINT: - VOMITING, ABD/BACK PAIN DIAGNOSES: - Unspecified abdominal pain - Generalized abdominal pain - Other longterm (current) drug therapy - Allergy status to narcotic agent status 02/04/2018 11:32 [facility] [place] TYPE: Emergency COMPLAINT: - POSS UTI/MSE DIAGNOSES: - Procedure and treatment not carried out due to patient leaving prior to being seen by health care provider INPATIENT VISIT TRACKING (12 MO.) 07/19/2018 13:40 [facility] [place] TYPE: Medical Surgical COMPLAINT: - CHRONIC ABD PAIN,INTRACABLE NAUSEA/VOMITING DIAGNOSES: - Other superintendent marine oil terminal (current) drug therapy - Allergy status to other drugs, medicaments and biological substances status - Fibromyalgia - Right upper quadrant pain - Complex regional pain syndrome I of other specified site - [facility] (current) use of opiate analgesic - Cyclical vomiting, not intractable - Interstitial cystitis (chronic) without hematuria - Allergy status to narcotic agent status - Other constipation [email or web address]
[2018-12-31] MEDS ORDERED: NORCO 10-325 T1 EACH PO (00:21)
[2018-12-31] MEDS ORDERED: PROMETHAZINE HC25 M1 PO (00:21)
== END 2018-12-31 00:30 | disposition home or self-care (01) ==
LOC: ED 21:47
DX: G89.29 Other chronic pain (principal); M79.605 Pain in left leg; Z90.89 Acquired absence of other organs; Z88.5 Allergy status to narcotic agent; Z88.8 Allergy status to other drugs, medicaments and biological substances; Z79.899 Other long term (current) drug therapy
CPT/HCPCS: 99283

== ENCOUNTER 2019-08-08 18:17 | Emergency (ER) | payer MEDICARE, OTHER ==
[~2019-08-08] VITALS: Ht 162.6 cm; Wt 95.2 kg
[~2019-08-08 18:17] MED LIST changes: +CYMBALTA30 MG PO; +OXYCODONE HCL10 MG PO; +TOPAMAX25 MG PO; +WELLBUTRIN XL150 MG PO; +ZIPRASIDONE HCL40 MG PO
--- OUTSIDE RECORDS SUMMARY | 2019-08-08 18:20 | XMS ---
PreManage Notification: BRODY LINCOLN Security Vegetable Loader Events No recent Security Events currently on file CRITERIA MET - Group Notification - [facility] MARCELINO PERRY Internal Medicine 07/18/2018-Current ROSELIA PHONE: [phone] Aron Hannah Anesthesiology: Pain Medicine 07/18/2018-Current PHONE: Unknown DR MARCELINO PERRY Primary Care Current PHONE: [phone] Allegra Gandhi Primary Care Current PHONE: Unknown Guidelines Source: [facility] Guidelines Date: 05/18/2018 Care Recommendation: PATIENT HAS HISTORY COMPLEX REEGIONAL PAIN SYNDROME WELL CYCLICAL ABDOMINAL PAIN/NAUSEA/VOMITING.\T\nbsp; UNDER TREATMENT WITH ARON HANNAH MD PHD PAIN MANAGMENT [facility].\T\nbsp; FOLLOW THIS REGIMEN WHEN PRESENTING TO ED FOR RESOLUTION OF SYMPTOMS: *HYDRATION IV *HYDROMORPHONE 1MG IV * KETOROLAC 30 MG IV *PROMETHAZINE 25MG IV Additional care guidelines exist for the following facilities: [facility] ( 05/21/2019 ) Care History Medical/Surgical 05/02/2018 [facility] - Patient is currently established with [facility]. If patient is seen in the ED during business hours. Please contact CHWs at [facility] at [phone]. Care Recommendation: This patient has had 5 or more Emergency Department visits in the last 12 months.\T\nbsp; Patient requires education on the scope and purpose of the ED as an acute care provider not a Primary Care Provider and should not be utilized for chronic conditions.\T\nbsp; If patient returns to ED please contact Community Health WorkerIlene at [phone]. These are guidelines and the provider should exercise clinical judgment when providing care. E.D. VISIT COUNT (12 MO.) [address] [facility] TOTAL 5 NOTE: Visits indicate total known visits. ED/UCC VISIT TRACKING (12 MO.) 08/08/2019 18:18 [facility] [place] TYPE: Emergency COMPLAINT: - SEVERE ABD AND BACK PAIN, VOMITING 12/30/2018 21:48 [facility] [place] TYPE: Emergency COMPLAINT: - L LEG PAIN,NON INJURY DIAGNOSES: - Pain in left leg - Allergy status to other drugs, medicaments and biological substances status - Other long-term (current) drug therapy - Allergy status to narcotic agent status - Acquired absence of other organs - Other chronic pain 10/22/2018 21:19 [facility] [place] TYPE: Emergency COMPLAINT: - ABD PAIN DIAGNOSES: - Nausea with vomiting, unspecified - Cyclical vomiting, not intractable - Allergy status to narcotic agent status - Allergy status to other drugs, medicaments and biological substances status - Other long-term (current) drug therapy - Unspecified abdominal pain 10/08/2018 15:00 [facility] [place] TYPE: Emergency COMPLAINT: - WOUND CHECK DIAGNOSES: - Unspecified contact dermatitis, unspecified cause - Other long-term (current) drug therapy - Allergy status to [...] SI - Other chronic pain - Other computer terminal operator (current) drug therapy INPATIENT VISIT TRACKING (12 MO.) No inpatient visits to display in this time frame [email or web address]
== END 2019-08-08 23:10 | disposition home or self-care (01) ==
LOC: ED 18:17
DX: G90.50 Complex regional pain syndrome I, unspecified (principal); Z88.5 Allergy status to narcotic agent; Z88.8 Allergy status to other drugs, medicaments and biological substances; Z79.899 Other long term (current) drug therapy
CPT/HCPCS: 36415; 71045; 80053; 81001; 83690; 84703; 85025; 96361; 96374; 96375; 99284-25; J1170; J1885; J2405; J2550; J7030

== ENCOUNTER 2019-08-12 15:10 | Observation (INO) | payer MEDICARE, OTHER ==
[~2019-08-12] VITALS: Ht 162.6 cm; Wt 95.1 kg
--- OUTSIDE RECORDS SUMMARY | ~2019-08-12 | XMS | Encounter Summary ---
Demographics + + + | Address | [address] | | | [place] [address] | + + + | Home Phone [...] + + | Author | [facility] | + + + | Organization | [facility] | + + + | Address | Unknown | + + + | Phone | Unavailable | + + + Support + + +---------+ + | Name | Relationship | Address | Phone | + + +---------+ + | Patricia Colin | ECON | Unknown | | + + +---------+ + Care Team Providers + +------+ + | Care Lumber Carrier Name | Role | Phone | + +------+ + | Justo Vazquez MD | PCP | | + +------+ + Encounter Details +--------+ + + + + | Date | Type | Department | Care Team | Description | +--------+ + + + + | 02/07/ | MyChart | [facility] | Kenny Gaspar MD | MR enterography | | 2017 | Encounter | [place] [facility] [address] | [address] | results | | | | [address] | [address] [place], | | | | | Mailcode: [place] | [place] [address] | | | | | for Health and | [phone] | | | | | [facility], [facility] [address] | | | | | | [place], [place] | | | | | | [address] | | | | | | [phone] | | | +--------+ + + + [...]
--- OUTSIDE RECORDS SUMMARY | ~2019-08-12 | XMS | Encounter Summary ---
Demographics + + + | Address | [address] | | | [place] [address] | + + + | Home Phone | | + + + | Preferred Language | Unknown | + + + | Marital Status | Single | + + + | Yarsanism Affiliation | FMD | + + + | Race | White | + + + | Ethnic Group | Not or | + + + Author + + + | Organization | Unknown | + + + | Address | Unknown | + + + | Phone | Unavailable | + + + Support + + +---------+ + | Name | Relationship | Address | Phone | + + +---------+ + | Patricia Colin | ECON | Unknown | | + + +---------+ + Care Team Providers + +------+ + | Care Heeler Name | Role | Phone | + +------+ + | Justo Vazquez MD | PCP | | + +------+ + Encounter Details +--------+--------+ + + + | Date | Type | Department | Care Team | Description | +--------+--------+ + + + | 04/23/ | Travel | | | | | 2019 | | | | | +--------+--------+ + + + Social History + +-------+ [...]
--- OUTSIDE RECORDS SUMMARY | ~2019-08-12 | XMS | Encounter Summary ---
Demographics + + + | Address | [address] | | | [place] [address] | + + + | Home Phone | | + + + | Preferred Language | Unknown | + + + | Marital Status | Single | + + + | Faith Affiliation | FMD | + + + [...] Team Providers + +------+ + | Care Mine Environmental Engineer Name | Role | Phone | + +------+ + | Jutso Vazquez MD | PCP | | + +------+ + Reason for Visit + + + | Reason | Comments | + + + | Pain in left leg | from the knee downl | + + + | Back pain | where battery pack is located | + + + Consultation (Routine) + +--------+ + + + + | Status | Reason | Specialty | Diagnoses / | Referred By | Referred To | | | | | Procedures | Contact | Contact | + +--------+ + + + + | Authorized | | Pain | Diagnoses | Chasity, | Daniel, | | | | Management | Abdominal | MD Kenny | Alex Alba, | | | | | pain, | [address] | ,PhD [address] | | | | | unspecified | [address] | [address] | | | | | location | Rd | [address] | | | | | Procedures | [place] | [place], | | | | | CONSULT TO | [address] | [place] | | | | | PAIN | Phone: | [phone] | | | | | MANAGEMENT | [phone] | Phone: | | | | | | Fax: | [phone] | | | | | | [phone] | Fax: | | | | | | | [phone] | + +--------+ + + + + Encounter Details +--------+---------+ + + + | Date | Type | Department | Care Team | Description | +--------+---------+ + + + | 04/23/ | Office | [facility] at [facility] | Alex Sanchez, | Complex regional | | 2019 | Visit | 15th Floor [address] | ,PhD [address] [facility] | pain syndrome type 1 | | | | [address] Mailcode: | [address] | of left lower | | | | [facility] Center for | [facility], [place] | extremity (Primary | | | | [facility], | [address] | Dx); Other chronic | | | | Building | [phone] | pain ; S/P insertion | | | | Floor [place], [place] | | of spinal cord | | | | [address] | | stimulator | | | | [phone] | | | +--------+---------+ + + + [...] + + + | Blood Pressure | 137/85 | 04/23/2019 12:52 PM | | | | | PDT | | + + + + + | Pulse | 102 | 04/23/2019 12:52 PM | | | | | PDT | | + + + + + | Temperature | 36.8 C (98.3 F) | 04/23/2019 12:52 PM | | | | | PDT | | + + + + + | Respiratory Rate | 16 | 04/23/2019 12:52 PM | | | | | PDT | | + + + + + | Oxygen Saturation | 100% | 04/23/2019 12:52 PM | | | | | PDT | | + + + + + | Inhaled Oxygen | - | - | | | Concentration | | | | + + + + + | Weight | 86.2 kg (190 lb) | 04/23/2019 12:52 PM | | | | | PDT | | + + + + + | Height | 162.6 cm (5' 4") | 04/23/2019 12:52 PM | | | | | PDT | | + + + + + | Body Mass Index | 32.61 | 04/23/2019 12:52 PM | | | | | PDT | | + + + + + documented in this encounter Patient Instructions Patient Instructions Sonia Key - 04/23/2019 1:00 PM PDTTracie, Thank you for taking the time to see us in the [facility]. It was great to s ee you. Below is a summary of the discussion that we had today: - I will provide you with a prescription for oxycodone to use only for your monthly pain fl garo. - We reviewed and signed an opioid agreement today. - Please visit the lab on the 1st floor of [facility] to provide a urine sample for a urine drug screen in accordance to our agreement. - To better manage your pain flares, you may consider using gabapentin on an as needed basi s. documented in this encounter Progress Notes Alex Sanchez MD,PhD - 04/23/2019 1:00 PM PDTI saw and evaluated the patient with Shakira Rebollar, who conducted the initial history. I reviewed the history in detail and edite d his note. I performed a physical examination and was present and participating in the for mulation portion of the encounter. I agree with the findings and the plan of care as maribel fox in our notes. Alex Sanchez MD,PhD [facility] signed by Alex Sanchez MD,PhD at 04/14 7:04 PM Tania Nj RN - 04/23/2019 1:00 PM PDTCMA History: 1. Has your pain changed from your last visit? no change 2. Do your medications cause any side effects? NO 3. Have you had physical therapy appointments since your last visit? YES 4. Have you had psychology appointments since your last visit? YES 5. Have you had any diagnostic studies since your last appointment? NO 6. Do you require any medication refills today? ROS:. 1. BONES, JOINTS AND MUSCLES joint pain, stiffness and swelling 2. GASTROINTESTINAL SYSTEM negative 3. GENITOURINARY SYSTEM negative 4. NERVOUS SYSTEM numbness, weakness and headache 5. PSYCHIATRIC HISTORY concentration , anxiety and fear of physical activity Aleta Lam MD - 1:00 PM PDT [facility] Return Visit Date: 04/23/2019 Chief Complaint Patient presents with Pain in left leg from the knee downl Back pain where battery pack is located History of Present Illness: Tracie Farah is a 28 year old female, whose last appoi [facility] was December 22, 2018, for a clinic visit with Ilene Childs DNP. At that time our plans were: Recommendation/Plan: - Follow up with Dr. Sanchez as needed (no visits scheduled at this time) - Prescription provided for Oxycodone 10 mg PO q 8 PRN Disp# 10 Refill# 0 Today, she complains of pain located in the left leg. This condition has remained unchanged since Ms. Farah's last visit. She does not have new pain complaints on this visit. Ms. Micaela paz reports that there have been no changes in her history since the last appointment. Overall since getting the DRG, she reports receiving on average 30% pain relief which she i s happy about. As a result of this pain relief, she has successfully discontinued the ketami ne. However, her daily pain continues to be rated 6-7/10. She has noticed that although she became less dependent on ketamine to manage her pain, she would still order one bottle to [facility] nearby to use as needed. However, she has noticed that when using it to treat a flare of pain, she started to get sick and would develop her typical bladder symptoms (normally under goes surgery for this every 3 months). She suspects that the ketamine is flaring her symptom s. After using it for two days, she had trouble urinating, re-developed pain, and had to giv e herself a Toradol injection. She is no longer interested in using Ketamine for breakthroug h pain relief. She states that she will develop a pain flare about one night per week. Sometimes she will have a pain flare that will last for four days. She states that with medications, a typical pain flare will last for three days. She was previously using "12 bottles worth (of ketamine )," unsure of the dose at this time. She is interested in exploring other medications to use as a rescue medication because of these new symptoms. She notes that her primary care heberti paige is unable to provide her with ongoing pain prescriptions. She feels like she has started to feel more of her left leg pain due to the boone that e has in place. She is looking into consulting an orthopedic surgeon to have the boone rem cady. Despite trying to exercise more at the gym, she states that she can be standing and li fting weights without pain, but going out and walking to her car is painful. She continues t o have CRPS symptoms with associated sensitivity, but notes that this has been going down. Additionally, beginning a few days ago, she began developing buzzing sensations over the le ft lateral ankle. She also feels some of this in her low back whenever she "sits weird." She has not spoken to the stimulator representatives about these new symptoms yet. MEDICATIONS: - Cymbalta Has tried in the past: - oxycodone 5 mg: insufficient relief - oxycodone 10 mg q6 hr: helpful - Ketamine: helpful in the past, found to possibly be cause of bladder symptoms - gabapentin: not helpful - Toradol IM NON-MEDICATION THERAPIES: - Physical therapy - Water aerobics - CBD oil (applies to her thigh): helpful INTERVENTIONS: - DRG stimulator implant (12/05/2018) - DRG Spinal cord stimulator trial with [facility] system (09/25/2018) with 30-40% im provement of typical pain with significant improvement in mobility and function - Left popliteal/sciatic nerve injection AND abdominal scar trigger point injection ( 018) - Spinal cord stimulator trial with [employer] by Janak Riojas MD (08/02/2012) - Left L3 lumbar sympathetic block by Janak Riojas MD (03/01/2012) Opioid Risk Tool (ORT) 04/23/2019 VEHICLE LEASING AND 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 MANAGER Brief Pain Inventory: (ten= worst possible pain or complete interference) Right Now: 8.5 Least in 24 hours: 7 Worst in 24 hours: 9 Average: 7 % Relief (med/treat): 30 General Activity: 6 Mood: 3 Walking Ability: 8 Normal Work: 7 Relations with Others: 4 Enjoyment of Life: 4 Sexual Activity: 0 Sleep: 6 Past Medical History: Diagnosis Date Abdominal pain [...] Hemroidectomy Trial spinal cord stimulator leads 08/02/2012 [facility], Surgeon: Janak Riojas MD Cholecystectomy Appendectomy Other [...] Grandfather Cancer Paternal Grandfather Asthma Brother Social History Substance and Sexual Activity Alcohol Use No Comment: rare Social History Substance and Sexual Activity Drug Use Yes Comment: CBD Social History Social History Narrative Single. Goes to [employer] with a light load. Has been working at [employer], can' t work on [employer] Has roommates. Allergies Allergen Reactions Morphine Anaphylaxis Haldol [Haloperidol] Myalgia Tracie states muscle spasm and "feeling like crawling out of skin." Current Medication List Name Sig BACLOFEN 10 MG TABLET Take 0.5 tablets by mouth two times daily. Take at the onset of abdom inal spasm for two days. Indications: muscle spasm BUPROPION HCL 100 MG TABLET Take 200 mg by mouth two times daily. CLONIDINE HCL 0.1 MG TABLET Take 0.1-0.2 mg by mouth once daily at bedtime. CYCLOBENZAPRINE 5 MG TABLET Take 5 mg by mouth three times daily as needed. Do not use long er than 2-3 weeks. DULOXETINE 30 MG CAPSULE,DELAYED RELEASE Take 60 mg by mouth once daily in the morning. DULOXETINE 30 MG CAPSULE,DELAYED RELEASE Take 30 mg by mouth once daily in the evening. HYDROXYZINE HCL 50 MG TABLET Take 1 tablet by mouth two times daily. KETOROLAC IM Inject into the muscle (IM). LEVONORGESTREL 20 MCG/24 HOURS (5 YRS) 52 MG INTRAUTERINE DEVICE 1 Each by Intrauterine rou te once. May be removed and replaced with a new unit at anytime during menstrual cycle; do n ot leave any one system in place for > 5 years. ONDANSETRON 4 MG DISINTEGRATING TABLET Dissolve 1 tablet in mouth every twelve hours as nee ded. OXYCODONE 10 MG TABLET Take one-half tablet by mouth every eight hours as needed for severe pain. Indications: CRPS flare PANTOPRAZOLE 40 MG TABLET,DELAYED RELEASE Take 40 mg by mouth once daily as needed. PEG 3350-ELECTROLYTES 236 GRAM-22.74 GRAM-6.74 GRAM-5.86 GRAM SOLUTION Take as directed by [facility] Health- 2 gallon bowel prep POLYETHYLENE GLYCOL 3350 17 GRAM/DOSE ORAL POWDER Take 17 g by mouth once daily. PROMETHAZINE 12.5 MG TABLET Take 1 tablet by mouth four times daily as needed for nausea/vo miting. SUCRALFATE 1 GRAM TABLET Take 1 g by mouth four times daily. Radiology/Diagnostic Tests: Not applicable Most Recent Labs: Not applicable Bones, Joints, and Muscles: joint pain, stiffness and swelling Gastrointestinal System: negative Genitourinary System: negative Nervous System: numbness, weakness and headache Psychiatric History: concentration , anxiety and fear of physical activity Physical Examination: BP 137/85 (BP Location: Left upper arm, Patient Position: Sitting) | Pulse 102 | Temp 36. 8 C (98.3 F) (Oral) | Resp 16 | Ht 1.626 m (5' 4") | Wt 86.2 kg (190 lb) | SpO2 100% | BMI 32.61 kg/m | BSA 1.97 m Physical Exam Constitutional: She is oriented to [...] She exhibits no distension. Neurological: She is alert and oriented to person, place, and time. Skin: Skin is warm and dry. She [...] with nausea Abdominal pain Abdominal scar neuroma [facility] CLINICAL PROTOCOL PATIENT ([facility]NPRO) - Implanted Spinal Cord Stimulator Visit Diagnoses: G90.522 Complex regional pain syndrome type 1 of left lower extremity G89.29 Other chronic pain Z98.890 S/P insertion of spinal cord stimulator For today's evaluation, I have included my personal review of Ms. Farah's history and ph ysical examination. I also used the following components in my medical decision making: Review and summary of old medical records (source: [employer]), as summarized in the body of the note. Impression: Ms. Tracie Farah is a 28y.o. female with a history of CRPS of the lower extremit y as well as abdominal pain associated with severe, cyclical nausea and vomiting. She was pr eviously evaluated by an orthopedic surgeon who determined that surgical intervention was no t indicated for removal of her left ankle hardware due to the development of scar tissue and rotation of the originally placed staple. As she is unable to pursue surgical interventions for her pain, we agreed that it was appropriate to proceed with plans for trial of DRG stim ulation. We performed DRG SCS trial with the [employer] System on 09/25/2018 which provided her with 30-40% improvement of typical pain with significant improvement in mobility and functio n. She returns today reporting ongoing 30% pain relief from the DRG stimulation status-post im plantation (12/05/2018). She is overall happy with the pain relief she continues to derive fr om the DRG stimulator noting that she is no longer dependent on ketamine for her pain relief . However, she did try to use ketamine as needed for pain flares, finding that it reproduced her typical bladder symptoms with associated nausea and vomiting. She suspects that these s ymptoms are directly related to the ketamine and is no longer interested in using ketamine f or breakthrough pain relief. As her primary care provider, Justo Vazquez MD is unable to provide her with ongoing opio id prescriptions to manage her pain, we discussed that I may provide her with a prescription for this, however it is only to be used for her monthly pain flares. She agreed with this p antoinette. We reviewed and signed an opioid agreement today and she will obtain a urine drug scree n following the conclusion of our office visit. As she has found oxycodone to be the most he lpful medication for her pain, I agreed to provide her with this prescription. As she takes up to 2 tablets, twice daily on average for her pain flares that can last up to 4 days per m onth (12 tablets per month), I will provide her with a prescription of oxycodone 10 mg #90 t ablets today, which should last her six months. Of note, she began to develop paresthesia-like sensations over the lateral aspect of her le ft lower leg a few days ago. She has not spoken with the [employer] representatives about this. I encouraged her to do this as these symptoms may resolve with optimization of her program s ettings. Additionally, we discussed that it is possible that her localized area of pain to the later al left ankle may be attributable to the boone that are in-place from her previous surgeri es. Recommendation/Plan: - Reviewed and signed opioid agreement with patient today - Completed opioid risk tool (ORT) - Electronic prescription provided today: Oxycodone 10 mg, Dispense: 90 tablets, Refills: 0 - Obtain Urine Drug Screen, ordered - Follow-up in 3 months for prescription follow-up ISonia, am functioning as a scribe for Aleta Rebollar MD at 1:10 PM on 04/23/2019. I have reviewed and verified the above scribed note of my visit with this patient as record ed by Sonia Key. Aleta Rebollar MD [facility] [address] Mail Code: [id number] [place] [address] do cumented in this encounter Plan of Treatment Not on filedocumented as of this encounter Procedures + +--------+ + + + | Procedure Name | Priori | Date/Time | Associated Diagnosis | Comments | | | ty | | | | + +--------+ + + + | CONTROLLED SUBSTANCE | | 04/23/2019 | | Results for this | | AGREEMENT | | 12:00 AM | | procedure are in the | | | | PDT | | results section. | + +--------+ + + + documented in this encounter Results DRUG SCREEN,URINE;W/CONFIRM (04/23/2019 1:54 PM PDT) + + + + + + | Component | Value | Ref Range | Performed | Pathologist | | | | | At | Signature | + + + + + + | AMPHETAMINE | Negative | Negative | [facility] | | | , URINE | | | LABORATORY | | | | | | SERVICES, | | | | | | CORE | | + + + + + + | AMPHETAMINE | 311 | <1,000 ng/mL | [facility] | | [...] | Specimen | + + | Urine | + + + + + | Narrative | Performed At | + + + | Minimum drug concentration yielding a positive urine drug screen | [facility] | | Amphetamines >=1000 | LABORATORY | | ng/mL | SERVICES, CORE | | Barbiturates >=200 ng/mL | | | Benzodiazepine >=200 ng/mL | | | Cocaine >=300 ng/mL | | | Methadone >=300 ng/mL | | | Opiates >=300 ng/mL | | | Oxycodone >=100 ng/mL THC | | | - Cannabinoid >=50 ng/mL Screening results are not | | | confirmed by alternate method unless requested. Results are to be | | | used for medical (i.e. treatment) purposes only. The reported result | | | is an estimated concentration of drug that can be detected by the | | | method of analysis. Amphetamine Note: Benzphetamine and Selegiline | | | may produce positive results with this assay. Opiates Notes: | | | Therapeutic doses of Ofloxcin (Floxin) or Levofloxacin (Levaquin) may | | | produce positive results with this assay. The substaces being tested | | | for must include Amphetamines, Benzodiazepines, Cocaine, Alcohol, | | | Cannabinoids, Opiates. | | + + + + + + + + | Performing | Address | City/State/Zipcode | Phone Number | | Organization | | | | + + + + + | [facility] | [address] | [place] [address] | | | SERVICES, CORE | [address] | | | + + + + + CONTROLLED SUBSTANCE AGREEMENT (04/23/2019 12:00 AM PDT) + + + | Narrative | Performed At | + + + | | | + + + documented in this encounter Visit Diagnoses + + | Diagnosis | + + | Complex regional pain syndrome type 1 of left lower extremity - Primary | + + | Other chronic pain Other chronic pain | + + | S/P insertion of spinal cord stimulator | + + documented in this encounter
--- OUTSIDE RECORDS SUMMARY | ~2019-08-12 | XMS | Encounter Summary ---
Demographics + + + | Address | [address] | | | [place] [address] | + + + | Home Phone [...] Team Providers + +------+ + | Care Maintenance Scheduler Name | Role | Phone | + [...]
--- OUTSIDE RECORDS SUMMARY | ~2019-08-12 | XMS | Encounter Summary ---
Demographics + + + | Address | [address] | | | [place] [address] | + + + | Home Phone [...] | Author | [facility] | + + + | Organization | [facility] | + + + | Address | Unknown | + + + | Phone | Unavailable | + + + Support + + +---------+ + | Name | Relationship | Address | Phone | + + +---------+ + | Patricia Colin | ECON | Unknown | | + + +---------+ + Care Team Providers + +------+ + | Care Contribution Solicitor Name | Role | Phone | + +------+ + | Justo Vazquez MD | PCP | | + +------+ + Encounter Details +--------+ + + + + | Date | Type | Department | Care Team | Description | +--------+ + + + + | 03/08/ | Hospital | Radiology/Imaging | Ranjeet Amanda, | | | 2018 | Encounter | Lab at [facility] [address] | [address] | | | | | [address] Mailcode: | [place], [place] | | | | | [facility] | [address] | | | | | and [address], | [phone] | | | | | | | | | | | Floor [place], [place] | | | | | | [address] | | | | | | [phone] | | | +--------+ + + + [...] tablet in | 15 | 0 | 08/08/ | | | mg oral | mouth [...] + +--------+ + + + | X-RAY FOOT 3 VIEWS | Routin | 03/08/2018 | Foot pain, left | Results for this | | LEFT | e | 7:43 AM | | procedure are in the | | | | PDT | | results section. | + +--------+ + + + documented in this encounter Results X-RAY FOOT 3 VIEWS LEFT (03/08/2018 7:43 AM PDT) + + | Specimen | + + | | + + + + + | Narrative | Performed At | + + + | STUDY: ANKLE 2 VIEWS LEFT and foot 3 views left COMPARISON: | [facility] | | Outside radiographs 12/29/17 and 10/09/13. HISTORY: Pain. | RADIOLOGY VOICE | | FINDINGS: Healed chronic distal tibial metaphyseal fracture is | RECOGNITION | | observed with 2 distal tibial metaphyseal boone in place. Chronic | | | sclerosis and mild contour deformity within the distal fibular | | | metaphysis is unchanged and is also likely posttraumatic in nature. No | | | acute fracture or focal destruction is seen. There is no hardware | | | failure or loosening. The ankle mortise asymmetry or syndesmotic | | | widening is seen. No talar dome lesion is noted. The osseous | | | structures of the left foot are intact. The joint spaces are | | | preserved. Alignment is normal. Soft tissues are within normal limits. | | | IMPRESSION: Chronic healed distal tibial fracture with | | | boone in place. Chronic posttraumatic and/or postsurgical | | | changes of distal fibula. No acute osseous abnormality and no | | | change compared to prior radiographs I have personally | | | reviewed the images and, if necessary, edited the report. I agree | | | with the report as now presented. | | + + + + + | Procedure Note | + + | Service Account, [id number] Res In Interface - 03/08/2018 9:42 AM PDT STUDY: ANKLE 2 | | VIEWS LEFT and foot 3 views leftCOMPARISON: Outside radiographs 12/29/17 and | | 10/09/13.HISTORY: Pain.FINDINGS: Healed chronic distal tibial metaphyseal fracture is | | observed with 2 distal tibial metaphyseal boone in place. Chronic sclerosis and mild | | contour deformity within the distal fibular metaphysis is unchanged and is also likely | | posttraumatic in nature. No acute fracture or focal destruction is seen. There is no | | hardware failure or loosening. The ankle mortise asymmetry or syndesmotic widening is | | seen. No talar dome lesion is noted. The osseous structures of the left foot are intact. | | The joint spaces are preserved. Alignment is normal. Soft tissues are within normal | | limits.IMPRESSION:Chronic healed distal tibial fracture with boone in place.Chronic | | posttraumatic and/or postsurgical changes of distal fibula. No acute osseous abnormality | | and no change compared to prior radiographsI have personally reviewed the images and, | | if necessary, edited the report. I agree with the report as now presented. | | | |Chronic healed distal tibial fracture with boone in place. | | | |Chronic posttraumatic and/or postsurgical changes of distal fibula. | | | |No acute osseous abnormality and no change compared to prior radiographs | | | | | | | |I have personally reviewed the images and, if necessary, edited the report. I agree with t he report as now presented. | + + + +---------+ + + | Performing | Address | City/State/Zipcode | Phone Number | | Organization | | | | + +---------+ + + | [facility] | | | | | VOICE RECOGNITION | | | | + +---------+ + + documented in this encounter Visit Diagnoses + + | Diagnosis | + + | Foot pain, left Pain in limb | + + documented in this encounter"
--- OUTSIDE RECORDS SUMMARY | ~2019-08-12 | XMS | Encounter Summary ---
Demographics + + + | Address | [address] | | | [place] [address] | + + + | Home Phone | | + + + | Preferred Language | Unknown | + + + | Marital Status | Single | + + + | Scientology Affiliation | FMD | + + + [...] Team Providers + +------+ + | Care Organ Builder Name | Role | Phone | + +------+ + | Justo Vazquez MD | PCP | | + +------+ + Encounter Details +--------+ + + + + | Date | Type | Department | Care Team | Description | +--------+ + + + + | 01/02/ | Telephone | [facility] | Ilene Bright, | | | 2019 | | Pain Center at | KNUCKLE BENDER [address] | | | | | [facility] | Ave [place], [place] | | | | | [address] | [address] | | | | | Mailcode: CH15P | [phone] | | | | | [facility] | | | | | | and Healing, | | | | | | | | | | | | [place], [place] | | | | | | [address] | | | | | | [phone] | | | +--------+ + + + [...]
--- OUTSIDE RECORDS SUMMARY | ~2019-08-12 | XMS | Encounter Summary ---
Demographics + + + | Address | [address] | | | [place] [address] | + + + | Home Phone [...] Author + + + | Author | [facility] | + + + | Organization | [facility] | + + + | Address | Unknown | + + + | Phone | Unavailable | + + + Support + + +---------+ + | Name | Relationship | Address | Phone | + + +---------+ + | Patricia Colin | ECON | Unknown | | + + +---------+ + Care Team Providers + +------+ + | Care Professor Of Latin American Studies Name | Role | Phone | + +------+ + | Justo Vazquez MD | PCP | | + +------+ + Encounter Details +--------+ + + + + | Date | Type | Department | Care Team | Description | +--------+ + + + + | 05/18/ | Telephone | [facility] | Alex Sanchez, | | | 2019 | | Pain Center at | ,PhD [address] | | | | | [facility] | [address] | | | | | [address] | [place], [place] | | | | | Mailcode: CH15P | [address] | | | | | [place] for [facility] | [phone] | | | | | and Healing, | | | | | | | | | | | | Floor [place], [place] | | | | | | [address] | | | | | | [phone] | | | +--------+ + + + [...]
--- OUTSIDE RECORDS SUMMARY | ~2019-08-12 | XMS | Encounter Summary ---
Demographics + + + | Address | [address] | | | [place] [address] | + + + | Home Phone | | + + + | Preferred Language | Unknown | + + + | Marital Status | Single | + + + | Latter Day Affiliation | FMD | + + + [...] Team Providers + +------+ + | Care Measurement Superintendent Name | Role | Phone | + +------+ + | Justo Vazquez MD | PCP | | + +------+ + Encounter Details +--------+ + + + + | Date | Type | Department | Care Team | Description | +--------+ + + + + | 08/03/ | Telephone | [facility] | Alex Sanchez, | | | 2018 | | Pain Center at | ,PhD [address] | | | | | [facility] [address] | [address] | | | | | [address] | [place], [place] | | | | | Mailcode: CH15P | [address] | | | | | [place] for [facility] | [phone] | | | | | and Healing, | | | | | | | | | | | | Floor [place], [place] | | | | | | [address] | | | | | | [phone] | | | +--------+ + + + [...]
--- OUTSIDE RECORDS SUMMARY | ~2019-08-12 | XMS | Encounter Summary ---
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 | | | | Therapy | CRPS | Janak Martinez MD | [address] | | | | | (complex | [address] | | | | | regional | [address] | Mailcode: | | | | | pain | Mailstop | [facility] | | | | | syndrome), | [id number] | for Health | | | | | lower limb | [place], [place] | and Healing, | | | | | Gait | [address] | [address] | | | | | disturbance | Phone: | [place], [place] | | | | | Muscle pain | [phone] | [address] | | | | | Procedures | Fax: | Phone: | | | | | PHYSICAL | [phone] | [phone] | | | | | THERAPY | | | | | | | REFERRAL | | | +--------+--------+ + + + + Encounter Details +--------+---------+ + + + | Date | Type | Department | Care Team | Description | +--------+---------+ + + + | 05/10/ | Office | [facility] | Guillermo Sanon I, | CRPS (complex | | 2011 | Visit | Therapy Services at | PT [address] | regional pain | | | | [place] | Ave [place], [place] | syndrome), lower | | | | [address] | [phone] | limb (Primary Dx) | | | | Mailcode: CH3P | | | | | | [facility] | | | | | | and Healing, | | | | | | [address] | | | | | | Floor [place], [place] | | | | | | [address] | | | | | | [phone] | | | +--------+---------+ + + + [...] documented as of this encounter Progress Notes Guillermo Sanon I, PT - 05/10/2012 3:13 PM PDTFormatting of this note might be different f rom the original. [id number] BRODY FARAH Date of : 1990 Start of care: 02/14/2012 Date of onset: 02/14/2012 Referring/Attending Practitioner: Janak Riojas MD . Primary/Referral Diagnosis/ICD-9: 355.71B CRPS (complex regional pain syndrome), lower limb Insurance: Payor: [facility] Plan: BCBS OUT OF STATE Product Type: PP O Service period from: 02/14/2012 to: 08/12/2012 Number visits used/authorized: 01/23 [facility] PROGRESS NOTE SUBJECTIVE: Age: 21 y.o. Sex: female Chief complaint: No chief complaint on file. Current: pt has been doing her neck exercises. She is not shaking as much. Her foot hurts t bruno. Now she is working at [employer] 2-3 hours per week, and spends a lot of the day hanging out on the couch at home. She wants to improve her whole body fitness and find things she can d o without flaring up her ankle. She does have a gym that she can use and she has a family fr hermila who is a local PT. History of Presenting Problems: Brody Farah is [...] Riojas today already. Pain rating at present: 8/10 worst: 10, best: 6/10 with lots of dilaudid, Pain location: left lower extremity medial and lateral below the knee, really bad below the line of th e gastroc Symptoms are constant. Pain description: Swelling, heat, sometimes cold, Symptoms are aggravated by: waking up in the morning, standing, walking, touching it, wind or a fan, rain, cold, TENS is bad. Pain is relieved by: sometimes pain meds. imaging: IMPRESSION: Normal angiographic and tissue phases bilaterally. Increased uptake on the delayed phase in the left lateral malleolus extending 4 cm superiorly. Evidence of decreased mechanical stress in the left lower extremity secondary to the patient's crutch use. Of note the distal fibula is abnormal despite this. Objective Observation/posture: pt is alone in NAD. She is not using crutches and has minimal if any l imp. . Small knee bend: knee over toes L R 4", L 0" Neuro Screen UE Neuro: Segmental Shoulder Strength Right Left Impact test C4 Shoulder Shrug 5 5 negative C5,6 Shoulder ER/IR, Elbow flexion 4 4 negative C6 Wrist extension- radial dev 4 4 negative C7 Wrist extension- Ulnar dev 4 4 negative C6,7,8 Elbow extension 4 4 negative C7 Wrist flexion 4 4 negative C8, T1 Thumb adduction (Ulnar) , Opposition (median) 4 4 negative T1 4 4 negative Baselines Activity 05/10/2012 05/03/2012 Walk without crutches 11/17 mile 11/17 mile unilateral rows 7.5 x 5 Risks and Benefits of treatment, as well as risks of not receiving recommended treatment, explained/discussed with patient. Patient agrees to proceed with Rx plan as outlined. Treatment provided: Static cervical isometerics in four directions 10 x10 Segmental Lower trunk rotation Desensitization program starting with cotton balls unilateral Rows 7.5 lbs x 5 seated Home exercises: Static cervical isometerics in four directions 10 x10 Segmental Lower trunk rotation Desensitization program starting with cotton balls Palmar grasp inhibition Treatment began: 1515hrs Treatment ended: 1600hrs Manual therapy: 0min Therapeutic exercise: 45 min ASSESSMENT: pt did well today. Much less shaking. I am updating her frequency. Date Goals Time Frame Status 05/03/2012 Independent [...] change in their status. Guillermo Sanon MSPT [facility] Mailcode: Ch3p [address] [facility], [address] [place] [phone] documented in this encounter Plan of Treatment Not on filedocumented as of this encounter Procedures + +--------+ + + + | Procedure Name | Priori | Date/Time | Associated Diagnosis | Comments | | | ty | | | | + +--------+ + + + | SC THERAPEUTIC | Routin | 05/11/2012 | CRPS (complex | | | EXERCISES | e | 8:57 AM | regional pain | | | | [...]
--- OUTSIDE RECORDS SUMMARY | ~2019-08-12 | XMS | Encounter Summary ---
Demographics + + + | Address | [address] | | | [place] [address] | + + + | Home Phone | | + + + | Preferred Language | Unknown | + + + | Marital Status | Single | + + + | Jew Affiliation | FMD | + + + | Race | White | + + + | Ethnic Group | Not or | + + + Author + + + | Author | [facility] | + + + | Organization | [facility] | + + + | Address | Unknown | + + + | Phone | Unavailable | + + + Support + + +---------+ + | Name | Relationship | Address | Phone | + + +---------+ + | Patricia Colin | ECON | Unknown | | + + +---------+ + Care Team Providers + +------+ + | Care Triage Register Nurse Name | Role | Phone | + +------+ + | Justo Vazquez MD | PCP | | + +------+ + Encounter Details +--------+ + + + + | Date | Type | Department | Care Team | Description | +--------+ + + + + | 06/12/ | Hospital | Radiology/Imaging | Alex Sanchez, | | | 2018 | Encounter | Lab at [facility] [address] | ,PhD [address] [facility] | | | | | [address] Mailcode: | [address] | | | | | [address] for | [place], [place] | | | | | Health and Healing, | [address] | | | | | [address] | [phone] | | | | | [place], [place] | | | | | | [address] | | | | | | [phone] | | | +--------+ + + + [...] mouth | 119 g | 0 | 12/12/20 | | | glycol 17 gram/dose | [...]
--- OUTSIDE RECORDS SUMMARY | ~2019-08-12 | XMS | Encounter Summary ---
Demographics + + + | Address | [address] | | | [place] [address] | + + + | Home Phone | | + + + | Preferred Language | Unknown | + + + | Marital Status | Single | + + + | Voodoo Affiliation | FMD | + + + | Race | White | + + + | Ethnic Group | Not or | + + + Author + + + | Author | [facility] | + + + | Organization | [facility] | + + + | Address | Unknown | + + + | Phone | Unavailable | + + + Support + + +---------+ + | Name | Relationship | Address | Phone | + + +---------+ + | Patricia Colin | ECON | Unknown | | + + +---------+ + Care Team Providers + +------+ + | Care Legislative Advocate Name | Role | Phone | + +------+ + | Justo Vazquez MD | PCP | | + +------+ + Encounter Details +--------+ + + + + | Date | Type | Department | Care Team | Description | +--------+ + + + + | 06/12/ | Hospital | Radiology/Imaging | Alex Sanchez, | | | 2018 | Encounter | Lab at [facility] [address] | ,PhD [address] [facility] | | | | | [address] Mailcode: | [address] | | | | | [address] for | [place], [place] | | | | | Health and Healing, | [address] | | | | | [address] | [phone] | | | | | [place], [place] | | | | | | [address] | | | | | | [phone] | | | +--------+ + + + [...]
--- OUTSIDE RECORDS SUMMARY | ~2019-08-12 | XMS | Encounter Summary ---
Demographics + + + | Address | [address] | | | [place] [address] | + + + | Home Phone [...] Author + + + | Author | [facility] | + + + | Organization | [facility] | + + + | Address | Unknown | + + + | Phone | Unavailable | + + + Support + + +---------+ + | Name | Relationship | Address | Phone | + + +---------+ + | Patricia Colin | ECON | Unknown | | + + +---------+ + Care Team Providers + +------+ + | Care Racetrack Steward Name | Role | Phone | + [...] 2016 | | Pain Center at | STRAINER TENDER [address] | | | | | [facility] | [place], [place] | | | | | [address] | [address] | | | | | Mailcode: CH15P | [phone] | | | | | [facility] | | | | | | joana Mack, | | | | | | Building | | | | | | [place], [place] | | | | | | [address] | | | | | | [phone] | | | +--------+ + + + [...]
--- OUTSIDE RECORDS SUMMARY | ~2019-08-12 | XMS | Encounter Summary ---
Demographics + + + | Address | [address] | | | [place] [address] | + + + | Home Phone | | + + + | Preferred Language | Unknown | + + + | Marital Status | Single | + + + | Lutheran Affiliation | FMD | + + + [...] Team Providers + +------+ + | Care Exercise Science Instructor Name | Role | Phone | + +------+ + | Justo Vazquez MD | PCP | | + +------+ + Encounter Details +--------+ + + + + | Date | Type | Department | Care Team | Description | +--------+ + + + + | 01/02/ | Telephone | [facility] | Ilene Bright, | | | 2019 | | Pain Center at | RAILCAR BRAKE OPERATOR [address] | | | | | [facility] | Ave [place], [place] | | | | | [address] | [address] | | | | | Mailcode: CH15P | [phone] | | | | | [facility] | | | | | | and Healing, | | | | | | | | | | | | [place], [place] | | | | | | [address] | | | | | | [phone] | | | +--------+ + + + [...]
--- OUTSIDE RECORDS SUMMARY | ~2019-08-12 | XMS | Encounter Summary ---
Demographics + + + | Address | [address] | | | [place] [address] | + + + | Home Phone | | + + + | Preferred Language | Unknown | + + + | Marital Status | Single | + + + | Protestant Affiliation | FMD | + + + [...] Team Providers + +------+ + | Care Taxi Proprietor Name | Role | Phone | + +------+ + | Justo Vazquez MD | PCP | | + +------+ + Encounter Details +--------+ + + + + | Date | Type | Department | Care Team | Description | +--------+ + + + + | 04/23/ | Anesthesia | Pain Center at [facility] | Aleta Rebollar MD [address] | | | 2019 | Event | [address] | | | | | [address] Mailcode: | [place], [place] | | | | | [address] for | [address] | | | | | Health and Healing, | [phone] | | | | | | | | | | | Floor [place], [place] | | | | | | [address] | | | | | | [phone] | | | +--------+ + + + [...]
--- OUTSIDE RECORDS SUMMARY | ~2019-08-12 | XMS | Encounter Summary ---
Demographics + + + | Address | [address] | | | [place] [address] | + + + | Home Phone | | + + + | Preferred Language | Unknown | + + + | Marital Status | Single | + + + | Samaritan Affiliation | FMD | + + + | Race | White | + + + | Ethnic Group | Not or | + + + Author + + + | Author | [facility] | + + + | Organization | [facility] | + + + | Address | Unknown | + + + | Phone | Unavailable | + + + Support + + +---------+ + | Name | Relationship | Address | Phone | + + +---------+ + | Patricia Colin | ECON | Unknown | | + + +---------+ + Care Team Providers + +------+ + | Care It Application Development Manager Name | Role | Phone | + +------+ + | Justo Vazquez MD | PCP | | + +------+ + Reason for Visit Diagnostic Testing (Routine) +--------+--------+ + + + + | Status | Reason | Specialty | Diagnoses / | Referred By | Referred To | | | | | Procedures | Contact | Contact | +--------+--------+ + + + + | Closed | | Radiology | Diagnoses | Sdrulla, | Rad Nuc Med | | | | | Complex | Alex Alba, | [facility] [address] | | | | | regional | ,PhD [address] | | | | | pain | [address] | Giuliana Maldonado | | | | | syndrome | [address] | Mailcode: | | | | | type [address] | [address] | [address] | | | | | left lower | [place], [place] | [address] | | | | | extremity | [address] | [place], [place] | | | | | Muscle pain | Phone: | [address] | | | | | Procedures | [phone] | Phone: | | | | | NM BONE | Fax: | [phone] | | | | | &/OR JOINT | [phone] | Fax: | | | | | IMAGING | | [phone] | | | | | TOMOGRAPHIC | | | | | | | (SPECT) NM | | | | | | | BONE &/OR | | | | | | | JOINT | | | | | | | IMAGING 3 | | | | | | | PHASE NM | | | | | | | BONE &/OR | | | | | | | JOINT | | | | | | | IMAGING | | | | | | | LIMITED AREA | | | | | | | [place] BONE | | | | | | | IMAGING, | | | | | | | LIMITED AREA | | | | | | | [place] BONE | | | | | | | IMAGING | | | | | | | (SPECT) | | | +--------+--------+ + + + + Encounter Details +--------+ + + + + | Date | Type | Department | Care Team | Description | +--------+ + + + + | 12/27/ | Hospital | Nuclear Medicine | Alex Sanchez, | | | 2018 | Encounter | at [facility] [address] | ,PhD [address] | | | | | [address] | [address] | | | | | Mailcode: [address] | [place], [place] | | | | | [address] | [address] | | | | | [place], [place] | [phone] | | | | | [address] | | | | | | [phone] | | | +--------+ + + + [...] | + +--------+ + + + | NM BONE &/OR JOINT | Routin | 12/27/2017 | Complex regional | Results for this | | IMAGING TOMOGRAPHIC | e | 5:07 PM | pain syndrome type 1 | procedure are in the | | (SPECT) | | PST | of left lower | results section. | | | | | extremity Muscle | | | | | | pain | | + +--------+ + + + | ORDERS OTHER | | 12/27/2017 | | Results for this | | | | 12:00 AM | | procedure are in the | | | | PST | | results section. | + +--------+ + + + documented in this encounter Results NM BONE &/OR JOINT IMAGING TOMOGRAPHIC (SPECT) (12/27/2017 5:07 PM PST) + + | Specimen | + + | | + + + + + | Narrative | Performed At | + + + | EXAM: PARTIAL BODY 3-PHASE BONE SCAN with WHOLE BODY BONE PHASE | [facility] | | 12/27/17 10:04:09 HISTORY: Concern for complex regional pain | RADIOLOGY VOICE | | syndrome COMPARISON: None available PROCEDURE: Following | RECOGNITION | | intravenous administration 24 mCi Tc-99m MDP, angiographic images of | | | the feet and lower legs were obtained at 3 second intervals for the | | | first minute. At five minutes blood pool images were | | | obtained. At 2 1/2 hours following injection, delayed images of the | | | feet and lower legs were imaged in the anterior and posterior plane. | | | Whole body images were also obtained in anterior and posterior plane | | | as well. SPECT/CT was performed of both ankles at 4-1/2 hours. | | | FINDINGS: The radionuclide angiogram shows normal symmetric activity | | | with no areas of increased or decreased flow. The capillary phase | | | images also show normal distribution of activity with no areas of | | | increased or decreased capillary permeability. The initial delayed | | | images at 2-1/2 hours show no visualization of bones. This is why we | | | obtained a further delayed SPECT/CT. The delayed SPECT/CT images show | | | focal intensely increased activity over the neck of the left fibula. | | | There is a metallic orthopedic pin in the calcaneus which projects | | | into the medial aspect of the fibula exactly where this increased | | | activity is present. There is another pin in the os calcis which has | | | no surrounding increased activity. Distribution of activity appears | | | otherwise normal. IMPRESSION: Normal angiographic and | | | capillary phases. Abnormally delayed appearance of the bones in the | | | distal portions of both legs. Focal abnormality in the distal left | | | fibula associated with an orthopedic pin. I have discussed these | | | findings personally with . This is not the typical | | | appearance of complex regional pain syndrome. I have | | | personally reviewed the images and, if necessary, edited the | | | report. I agree with the report as now presented. | | + + + + + | Procedure Note | + + | Service Account, Radiant Res In Interface - 12/28/2017 11:43 AM PST EXAM: PARTIAL | | BODY 3-PHASE BONE SCAN with WHOLE BODY BONE PHASE 12/27/17 10:04:09HISTORY: Concern for | | complex regional pain syndromeCOMPARISON: None availablePROCEDURE: Following | | intravenous administration 24 mCi Tc-99m MDP, angiographic images of the feet and lower | | legs were obtained at 3 second intervals for the first minute. At five minutes blood | | pool images were obtained. At 2 1/2 hours following injection, delayed images of the | | feet and lower legs were imaged in the anterior and posterior plane. Whole body images | | were also obtained in anterior and posterior plane as well. SPECT/CT was performed of | | both ankles at 4-1/2 hours.FINDINGS: The radionuclide angiogram shows normal symmetric | | activity with no areas of increased or decreased flow. The capillary phase images also | | show normal distribution of activity with no areas of increased or decreased capillary | | permeability. The initial delayed images at 2-1/2 hours show no visualization of bones. | | This is why we obtained a further delayed SPECT/CT. The delayed SPECT/CT images show | | focal intensely increased activity over the neck of the left fibula. There is a metallic | | orthopedic pin in the calcaneus which projects into the medial aspect of the fibula | | exactly where this increased activity is present. There is another pin in the os calcis | | which has no surrounding increased activity. Distribution of activity appears otherwise | | normal.IMPRESSION: Normal angiographic and capillary phases. Abnormally delayed | | appearance of the bones in the distal portions of both legs. Focal abnormality in the | | distal left fibula associated with an orthopedic pin. I have discussed these findings | | personally with . This is not the typical appearance of complex regional pain | | syndrome. I have personally reviewed the images and, if necessary, edited the report. I | | agree with the report as now presented. | + + + +---------+ + + | Performing | Address | City/State/Zipcode | Phone Number | | Organization | | | | + +---------+ + + | [facility] | | | | | VOICE RECOGNITION | | | | + +---------+ + + ORDERS OTHER (12/27/2017 12:00 AM PST) + + + | [...]
--- OUTSIDE RECORDS SUMMARY | ~2019-08-12 | XMS | Encounter Summary ---
Demographics + + + | Address | [address] | | | [place] [address] | + + + | Home Phone | | + + + | Preferred Language | Unknown | + + + | Marital Status | Single | + + + | Episcopalian Affiliation | FMD | + + + [...] Providers + +------+ + | Care Poultry Feed Supervisor Name | Role | Phone | [...] | | | | | syndrome | [facility] | [facility] | | | | | type [address] of | [address] | Rd [place], | | | | | left lower | [place], [place] | [place] | | | | | extremity | [address] | [address] | | | | | Procedures | Phone: | Phone: | | | | | REQUEST TO | [phone] | [phone] | | | | | SURGERY | Fax: | Fax: | | | | | [facility]OSPITAL [facility] | [phone] | [phone] | +--------+---------+ + + + + Reason [...] | | | | | Procedures | [place], [place] | [place], | | | | | CONSULT TO | [address] | [place] | | | | | PAIN | Phone: | [address] | | | | | MANAGEMENT | [phone] | Phone: | | | | | | Fax: | [phone] | | | | | | [phone] | Fax: | | | | | | | [phone] | +--------+--------+ + + + + Encounter Details +--------+---------+ + + + | Date | Type | Department | Care Team | Description | +--------+---------+ + + + | 10/09/ | Office | [facility] | Alex Sanchez, | Complex regional | | 2018 | Visit | Pain Center at | ,PhD [address] | pain syndrome type 1 | | | | [facility] | [facility] [address] | of left lower | | | | [address] | [place], [place] | extremity (Primary | | | | Mailcode: [id number] | [phone] | Dx) | | | | [facility] | [phone] | | | | | and Healing, | | | | | | | | | | | | Floor [place], [place] | | | | | | [address] | | | | | | [phone] | | | +--------+---------+ + + + [...] the time to see us in the [facility]. It was great to s ee you. Below is a summary of the discussion that we had today: - I have provided you with an external order to see a creative services specialist today. Please p resent this referral [...] insurance. PRE-PROCEDURE INSTRUCTIONS 1. Please bring a ready mix truck driver with you as we may give [...] or blood thinning medications (other than aspirin), [facility] doctor who is doing your procedure will communicate with the provider who is prescribing y our anticoagulant therapy. If you do not have clear instructions on what to do with your an ticoagulant by 2 weeks before your procedure, please contact [facility] to cl arify your instructions. The phone number for questions or concerns is [phone]. documented in this encounter Progress Notes Alex [...] notes. Alex Sanchez MD,PhD [facility] RangeElectronically signed by Alex Sanchez MD,PhD at 09/15 9:27 AM Smita Painter MA - 10/09/2018 10:00 AM PSTCMA History: 1. Has your pain [...] Person MD - 10/09/2018 10:00 AM PST [facility] Return Visit Date: 10/09/2018 Chief Complaint Patient presents with Back pain Low back pain Pain in left leg Knee pain Ankle pain Foot pain History of Present Illness: Tracie Farah is a 28 year old female, whose last appoi ntment at the [facility] was September 28, 2018, for a clinic visit with Yun Frey NP. At that time our plans were: Recommendations/Plan: 1. Recommend to keep her appointment with Dr. Sanchez on 10/02/2018. 2. To contact the [email or web address] rep if she has any further question [...] She went into the emergency room in [place], [place] where they rem cady the leads. She [...] which she suspects also used dissolvable stitches. PHARMACY MANAGER Brief Pain Inventory: (ten= worst possible [...] Hemroidectomy Trial spinal cord stimulator leads 08/02/2012 [facility], Surgeon: Janak Riojas MD Cholecystectomy Appendectomy [...] History Social History Narrative Single. Goes to [employer] with a light load. 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 Has roommates. Allergies Allergen Reactions Morphine Anaphylaxis [...] the vein (IV) every eight hour s. 0239-2244-02 COMPOUNDED MED RX CONTROLLED (SEE ADMIN INSTRUCT [...] by physician. Concentration is 150mg/mL. Compounded by [facility] ) KETOROLAC IM Inject into the [...] (IV) every twel ve hours as needed. 9480-1834-28 ONDANSETRON 4 MG DISINTEGRATING TABLET Dissolve 1 tablet in mouth every twelve hours as nee ded. PANTOPRAZOLE 40 MG TABLET,DELAYED RELEASE Take 40 mg by mouth once daily. PEG 3350-ELECTROLYTES 236 GRAM-22.74 GRAM-6.74 GRAM-5.86 GRAM SOLUTION Take as directed by [facility]- 2 gallon bowel prep POLYETHYLENE [...] and summary of old medical records (source: [employer]), as summarized in the body of the [...] Key. Arben Valerio MD PAIN CENTER AT [facility] 15TH FLOOR [address] [facility] [address] Mail Code: 15[address] [place] [address] [phone] signed by Alex Sanchez MD,PhD at 10/10/2018 9:27 AM [facility] umented in this encounter Plan of Treatment Not on filedocumented as of this encounter Visit Diagnoses + + | Diagnosis | + + | Complex regional pain syndrome type 1 of left lower extremity - Primary | + + documented in this encounter
--- OUTSIDE RECORDS SUMMARY | ~2019-08-12 | XMS | Encounter Summary ---
Demographics + + + | Address | [address] | | | [place] [address] | + + + | Home Phone [...] Team Providers + +------+ + | Care Dietary Tech Name | Role | Phone | + +------+ + | Justo Vazquez MD | PCP | | + +------+ + Encounter Details +--------+ + + + + | Date | Type | Department | Care Team | Description | +--------+ + + + + | 01/06/ | Document-Ia | [facility] | Alex Sanchez, | | | 2018 | anned | Pain Center at | ,PhD [address] | | | | | [facility] | [facility] [address] | | | | | [address] | [place], [place] | | | | | Mailcode: CH15P | [address] | | | | | [facility] | [phone] | | | | | and Healing, | | | | | | | | | | | | Floor [place], [place] | | | | | | [address] | | | | | | [phone] | | | +--------+ + + + [...] + + + | RADIOLOGY | | 12/29/2017 | | Results for this | | | | 12:00 AM | | procedure are in the | | | | PST | | results section. | + +--------+ + + + documented in this encounter Results RADIOLOGY (12/29/2017 12:00 AM PST) + + + | Narrative | Performed At | + + + | | | + + + documented in this encounter Visit Diagnoses Not on filedocumented in this encounter"
--- OUTSIDE RECORDS SUMMARY | ~2019-08-12 | XMS | Encounter Summary ---
Demographics + + + | Address | [address] | | | [place] [address] | + + + | Home Phone [...] Team Providers + +------+ + | Care Hammer Driver Name | Role | Phone | + +------+ + | Justo Vazquez MD | PCP | | + +------+ + Encounter Details +--------+ + + + + | Date | Type | Department | Care Team | Description | +--------+ + + + + | 03/12/ | Telephone | [facility] | Alex Sanchez, | | | 2019 | | Pain Center at | ,PhD [address] | | | | | [facility] | [facility] [address] | | | | | [address] | [place], [place] | | | | | Mailcode: CH15P | [address] | | | | | [place] [facility] | [phone] | | | | | and Healing, | | | | | | | | | | | | Floor [place], [place] | | | | | | [address] | | | | | | [phone] | | | +--------+ + + + [...]
--- OUTSIDE RECORDS SUMMARY | ~2019-08-12 | XMS | Encounter Summary ---
Demographics + + + | Address | [address] | | | [place] [address] | + + + | Home Phone [...] Team Providers + +------+ + | Care Club Manager Name | Role | Phone | [...] + + + + | 03/17/ | Abstract | [facility] | Kenny Gaspar MD | Medical Records | | 2017 | | [place] [address] [address] | [address] | Review | | | | [address] | [address], | | | | | Mailcode: [place] | [place] [address] | | | | | for Health and | [phone] | | | | | [facility] [address] | | | | | | [place], [place] | | | | | | [address] | | | | | | [phone] | | | +--------+ + + + [...]
--- OUTSIDE RECORDS SUMMARY | ~2019-08-12 | XMS | Encounter Summary ---
Demographics + + + | Address | [address] | | | [place] [address] | + + + | Home Phone | | + + + | Preferred Language | Unknown | + + + | Marital Status | Single | + + + | Quaker Affiliation | FMD | + + + | Race | White | + + + | Ethnic Group | Not or | + + + Author + + + | Author | [facility] | + + + | Organization | [facility] | + + + | Address | Unknown | + + + | Phone | Unavailable | + + + Support + + +---------+ + | Name | Relationship | Address | Phone | + + +---------+ + | Patricia Colin | ECON | Unknown | | + + +---------+ + Care Team Providers + +------+ + | Care Audit Control Clerk Name | Role | Phone | [...] Closed | | Radiology | Diagnoses | [place], | | | | | | Abdominal | MD Kenny | | | | | | pain, | [address] | | | | | | unspecified | [address] | | | | | | location | Rd | | | | | | Procedures | [place], [place] | | | | | | MR | [id number] | | | | | | ENTEROGRAPHY | Phone: | | | | | | ABDOMEN AND | [phone] | | | | | | PELVIS WWO | Fax: | | | | | | CONTRAST | [phone] | | +--------+--------+ + + + + Diagnostic Testing (Routine) +--------+--------+ + + + + | Status | Reason | Specialty | Diagnoses / | Referred By | Referred To | | | | | Procedures | Contact | Contact | +--------+--------+ + + + + | Closed | | Radiology | Diagnoses | Chasity, | | | | | | Abdominal | MD Kenny | | | | | | pain, | [address] | | | | | | unspecified | [address] | | | | | | location | Rd | | | | | | Procedures | [place], [place] | | | | | | MR | [id number] | | | | | | ENTEROGRAPHY | Phone: | | | | | | ABDOMEN AND | [phone] | | | | | | PELVIS WWO | Fax: | | | | | | CONTRAST | [phone] | | +--------+--------+ + + + + Reason for Visit Diagnostic Testing (Routine) +--------+--------+ + + + + | Status | Reason | Specialty | Diagnoses / | Referred By | Referred To | | | | | Procedures | Contact | Contact | +--------+--------+ + + + + | Closed | | Radiology | Diagnoses | [place]as[place], | | | | | | Abdominal | MD Kenny | | | | | | pain, | [address] | | | | | | unspecified | [address] | | | | | | location | Rd | | | | | | Procedures | [place], [place] | | | | | | MR | [id number] | | | | | | ENTEROGRAPHY | Phone: | | | | | | ABDOMEN AND | [phone] | | | | | | PELVIS WWO | Fax: | | | | | | CONTRAST | [phone] | | +--------+--------+ + + + + Encounter Details +--------+ + + + + | Date | Type | Department | Care Team | Description | +--------+ + + + + | 01/31/ | Hospital | Diagnostic Imaging | Celia Lin MD | | | 2017 | Encounter | Services at [facility] | [address] | | | | | [address] | [place], [place] | | | | | [address] Mailcode: | [id number] | | | | | [address] | [phone] | | | | | [facility] | | | | | | [place], [place] | | | | | | [address] | | | | | | [phone] | | | +--------+ + + + [...] + + + | Blood Pressure | 99/49 | 01/31/2017 4:09 PM | | | | | PDT | | + + + + + | Pulse | 82 | 01/31/2017 4:09 PM | | | | | PDT | | + + + + + | Temperature | - | - | | + + + + + | Respiratory Rate | 16 | 01/31/2017 4:09 PM | | | | | PDT | | + + + + + | Oxygen Saturation | 96% | 01/31/2017 4:09 PM | | | | | PDT | | + + + + + | Inhaled Oxygen | - | - | | | Concentration | | | | + + + + + | Weight | 69 kg (152 lb 1.9 | 01/31/2017 4:29 PM | | | | oz) | PDT | | + + + + + | Height | - | - | | + + + + + | Body Mass Index | 25.31 | 01/11/2017 3:15 PM | | | | | PST | | + + + + + documented in this encounter Medications at Time [...] | + +--------+ + + + | MR ENTEROGRAPHY | Routin | 01/31/2017 | Abdominal pain, | Results for this | | ABDOMEN AND PELVIS | e | 4:34 PM | unspecified location | procedure are in the | | WWO CONTRAST | | PDT | | results section. | + +--------+ + + + documented in this encounter Results MR ENTEROGRAPHY ABDOMEN AND PELVIS WWO CONTRAST (01/31/2017 4:34 PM PDT) + + | Specimen | + + | | + + + + + | Narrative | Performed At | + + + | EXAM: MRI Enterography abdomen and pelvis with and without | [facility] | | contrast. HISTORY: Evaluate for lymphoma, intussusception, | RADIOLOGY VOICE | | small bowel Crohns. Complex regional pain syndrome with 3 or 4 weeks | RECOGNITION | | of abdominal pain and negative workup (colonoscopy, anorectal | | | manometry). COMPARISON: CT 10/23/2015. | | | TECHNIQUE: Multiplanar MRI of the abdomen and pelvis was performed | | | without and with gadolinium based intravenous contrast. Three | | | bottles of neutral oral contrast were administered (1500mL). Dynamic | | | post-contrast imaging was performed. FINDINGS: Stomach: No | | | wall thickening or abnormal enhancement. Small Bowel: No | | | dilation, wall edema/thickening or abnormal enhancement. Colon: | | | Normal wall thickness and enhancement. No dilation is seen. | | | Other: Visualized portions of the upper abdominal organs are normal. 6 | | | mm left upper pole renal cyst. Right corpus luteal cyst. No ascites | | | or lymphadenopathy. IMPRESSION: Unremarkable MR enterography. | | | I have personally reviewed the images and, if necessary, edited | | | the report. I agree with the report as now presented. | | + + + + + | Procedure Note | + + | Service Account, Radiant Res In Interface - 02/01/2017 3:50 PM PDT EXAM: MRI | | Enterography abdomen and pelvis with and without contrast. HISTORY: Evaluate for | | lymphoma, intussusception, small bowel Crohns. Complex regional pain syndrome with 3 or | | 4 weeks of abdominal pain and negative workup (colonoscopy, anorectal | | manometry).COMPARISON: CT 10/23/2015.TECHNIQUE: Multiplanar MRI of the abdomen and | | pelvis was performed without and with gadolinium based intravenous contrast. Three | | bottles of neutral oral contrast were administered (1500mL). Dynamic post-contrast | | imaging was performed. FINDINGS:Stomach: No wall thickening or abnormal enhancement. | | Small Bowel: No dilation, wall edema/thickening or abnormal enhancement. Colon: Normal | | wall thickness and enhancement. No dilation is seen.Other: Visualized portions of the | | upper abdominal organs are normal. 6 mm left upper pole renal cyst. Right corpus luteal | | cyst. No ascites or lymphadenopathy.IMPRESSION:Unremarkable MR enterography.I have | | personally reviewed the images and, if necessary, edited the report. I agree with the | | report as now presented. | |Colon: Normal wall thickness and enhancement. No dilation is seen. | | | |Other: Visualized portions of the upper abdominal organs are normal. 6 mm left upper pole r enal cyst. Right corpus luteal cyst. No ascites or lymphadenopathy. | | | |IMPRESSION: | | | |Unremarkable MR enterography. | | | | | |I have [...] location | + + documented in this encounter Administered Medications + +---------+ +-------+------+------+ | Medication Order | MAR | Action | Dose | Rate | Site | | | Action | Date | | | | + +---------+ +-------+------+------+ | gadoterate meglumine (DOTAREM) | IV Push | 03/20/20 | 14 mL | | | | 0.5 mmol/mL injection 14 mL 14 | | 17 4:23 | | | | | mL, intravenous, ONCE, 1 dose, | | PM PDT | | | | | 01/31/17 at 1700 | | | | | | + +---------+ +-------+------+------+ +---+---+ | | | +---+---+ + +-------+ +--------+---+---------+ | glucagon (GLUCAGEN) injection | Given | 02/01/20 | 0.5 mg | | Left | | 0.5 mg 0.5 mg, intramuscular, | | 17 3:41 | | | Deltoid | | ONCE, 1 dose, 01/31/17 at 1615 | | PM PDT | | | | + +-------+ +--------+---+---------+ +---+---+ | | | +---+---+ + +-------+ +--------+---+---+ | glucagon (GLUCAGEN) injection | Given | 02/01/20 | 0.5 mg | | | | 0.5 mg 0.5 mg, intravenous, | | 17 4:07 | | | | | ONCE, 1 dose, Tue01/31/17 at 1600 | | PM PDT | | | | + +-------+ +--------+---+---+ +---+---+ | | | +---+---+ + +-------+ +------+---+---+ | LORazepam (ATIVAN) injection 1 | Given | 02/01/20 | 1 mg | | | | mg 1 mg, intravenous, | | 17 4:08 | | | | | INTRAPROCEDURE PRN, 2 doses, | | PM PDT | | | | | Starting Tue01/31/17 at 1540, | | | | | | | Until Tue01/31/17 at 1608, | | | | | | | anxiety | | | | | | + +-------+ +------+---+---+ +-------+ +------+---+---+ | Given | 02/01/20 | 1 mg | | | | | 17 3:41 | | | | | | PM PDT | | | | +-------+ +------+---+---+ +---+---+ | | | +---+---+ documented in this encounter"
--- OUTSIDE RECORDS SUMMARY | ~2019-08-12 | XMS | Encounter Summary ---
Demographics + + + | Address | [address] | | | [place] [address] | + + + | Home Phone | | + + + | Preferred Language | Unknown | + + + | Marital Status | Single | + + + | Anglican Affiliation | FMD | + + + [...] Team Providers + +------+ + | Care Director Of Public Safety Name | Role | Phone | + +------+ + | Justo Vazquez MD | PCP | | + +------+ + Encounter Details +--------+ + + + + | Date | Type | Department | Care Team | Description | +--------+ + + + + | 01/26/ | Document-Sc | Health Information | Unknown . | | | 2018 | anned | Services [address] | | | | | | [address] | | | | | | Mailcode: [id number] | | | | | | [facility] | | | | | | [place], [place] | | | | | | [address] | | | | | | [phone] | | | +--------+ + + + [...]
--- OUTSIDE RECORDS SUMMARY | ~2019-08-12 | XMS | Encounter Summary ---
Demographics + + + | Address | [address] | | | [place] [address] | + + + | Home Phone [...] Team Providers + +------+ + | Care Engineering Department Chair Name | Role | Phone | + +------+ + | Justo Vazquez MD | PCP | | + +------+ + Encounter Details +--------+ + + + + | Date | Type | Department | Care Team | Description | +--------+ + + + + | 10/19/ | Telephone | [facility] | Ilene Bright, | | | 2017 | | Pain Center at | HEADLIGHT ADJUSTER [address] | | | | | [facility] | [place], [place] | | | | | [address] | [address] | | | | | Mailcode: CH15P | [phone] | | | | | [facility] | | | | | | and Healing, | | | | | | | | | | | | [place], [place] | | | | | | [address] | | | | | | [phone] | | | +--------+ + + + [...]
--- OUTSIDE RECORDS SUMMARY | ~2019-08-12 | XMS | Encounter Summary ---
Demographics + + + | Address | [address] | | | [place] [address] | + + + | Home Phone [...] Team Providers + +------+ + | Care Awnings Mechanic Name | Role | Phone | [...] + + | 10/06/ | Telephone | [facility] | Yosef Kenney MD | Dermatitis | | 2018 | | Pain Center at | [address] | | | | | [facility] | [facility] | | | | | [address] | [place] [address] | | | | | Mailcode: CH15P | [phone] | | | | | [facility] | | | | | | [address]ana Mack, | | | | | | Building | | | | | | [place], [place] | | | | | | [address] | | | | | | [phone] | | | +--------+ + + + [...]
--- OUTSIDE RECORDS SUMMARY | ~2019-08-12 | XMS | Encounter Summary ---
Demographics + + + | Address | [address] | | | [place] [address] | + + + | Home Phone [...] Team Providers + +------+ + | Care Accounting Instructor Name | Role | Phone | + +------+ + | Justo Vazquez MD | PCP | | + +------+ + Encounter Details +--------+ + + + + | Date | Type | Department | Care Team | Description | +--------+ + + + + | 03/17/ | MyChart | [facility] [place] | Yun Frey FILE DRAWER FINISHER | Welcome | | 2017 | Encounter | Pain Center at | [address] | | | | | [facility] | [place], [place] | | | | | [address] | [address] | | | | | Mailcode: CH15P | [phone] | | | | | [facility] | | | | | | and Healing, | | | | | | | | | | | | Floor [place], [place] | | | | | | [address] | | | | | | [phone] | | | +--------+ + + + [...]
--- OUTSIDE RECORDS SUMMARY | ~2019-08-12 | XMS | Encounter Summary ---
Demographics + + + | Address | [address] | | | [place] [address] | + + + | Home Phone [...] Team Providers + +------+ + | Care Partition Assembly Machine Operator Name | Role | Phone [...] Oliveira | | 2011 | IP | [address] | | House - Approved | | | | [place] [address] [place], | | | | | | [place] [address] | | | +--------+ + + + [...]
--- OUTSIDE RECORDS SUMMARY | ~2019-08-12 | XMS | Encounter Summary ---
Demographics + + + | Address | [address] | | | [place] [address] | + + + | Home Phone [...] Team Providers + +------+ + | Care Sloop Captain Name | Role | Phone | + +------+ + | Justo Vazquez MD | PCP | | + +------+ + Encounter Details +--------+ + + + + | Date | Type | Department | Care Team | Description | +--------+ + + + + | 08/07/ | Telephone | [facility] | Alex Sanchez, | | | 2019 | | Pain Center at | ,PhD [address] | | | | | [facility] | [address] | | | | | [address] | [place], [place] | | | | | Mailcode: CH15P | [address] | | | | | [place] [facility] | [phone] | | | | | and Healing, | | | | | | | | | | | | Floor [place], [place] | | | | | | [address] | | | | | | [phone] | | | +--------+ + + + [...]
--- OUTSIDE RECORDS SUMMARY | ~2019-08-12 | XMS | Encounter Summary ---
Demographics + + + | Address | [address] | | | [place] [address] | + + + | Home Phone [...] Team Providers + +------+ + | Care Radial Drill Press Set Up Operator Name | Role | Phone | + +------+ + | Allegra Chaudhary | PCP | Unavailable | + +------+ + Reason for Visit + + + | Reason | Comments | + + + | Abdominal pain | | + + + Encounter Details +--------+ + + + + | Date | Type | Department | Care Team | Description | +--------+ + + + + | 08/08/ | Emergency | [facility] Emergency | Mable Villarreal MD | | | 2015 | | Department [address] | [address] [facility] | | | | | [address] | [facility] | | | | | [facility] | [place], [place] | | | | | [place], [place] | [address] | | | | | [address] | [phone] | | | | | [phone] | | | | | | | Kay Brown, | | | | | | ,PhD [address] [facility] | | | | | | [facility] | | | | | | [place], [place] | | | | | | [address] | | | | | | [phone] | | | | | | | [...] + + + | Blood Pressure | 122/61 | 08/08/2016 5:26 PM | | | | | PDT | | + + + + + | Pulse | 81 | 08/08/2016 12:25 PM | | | | | PDT | | + + + + + | Temperature | 36.7 C (98.1 F) | 08/08/2016 5:26 PM | | | | | PDT | | + + + + + | Respiratory Rate | 18 | 08/08/2016 4:00 PM | | | | | PDT | | + + + + + | Oxygen Saturation | 98% | 08/08/2016 5:26 PM | | | | | PDT | | + + + + + | Inhaled Oxygen | - | - | | | Concentration | | | | + + + + + | Weight | 65.8 kg (145 lb) | 08/08/2016 12:25 PM | | | | | PDT | | + + + + + | Height | 165.1 cm (5' 5") | 08/08/2016 12:25 PM | | | | | PDT | | + + + + + | Body Mass Index | 24.13 | 08/08/2016 12:25 PM | | | | | PDT | | + + + + + documented in this encounter Discharge Instructions Instructions Radha Yoo MD,MPH - 08/08/2016 Gastroparesis: Care Instructions Your Care Instructions When you have gastroparesis, your stomach takes a lot longer to empty. This delay can cause belly pain, bloating, and belching. It also can cause hiccups, heartburn, nausea or vomitin g. You may not feel like eating. These symptoms may come and go. They most often occur durin g and after meals. You may feel full after only a few bites of food. This condition occurs when the nerves to the stomach don't work properly. Diabetes is the m ost common cause of this nerve damage. Gastroparesis can make it harder to control your bloo d sugar levels. But keeping your blood sugar levels under control may help with your symptom s. Parkinson's disease, stroke, and some medicines can also cause this condition. Home treatment can often help. Follow-up care is a bocanegra part of your treatment and safety. Be sure to make and go to all ap pointments, and call your doctor if you are having problems. It's also a good idea to know y our test results and keep a list of the medicines you take. How can you care for yourself at home? Eat several small meals each day rather than three large meals. Eat foods that are low in fiber and fat. If your doctor suggests it, take medicines that help the stomach empty more quickly. The se are called motility agents. When should you call for help? Call your doctor now or seek immediate medical care if: You have new or worse belly pain. Your belly pain lasts longer than 24 hours and is not getting better. Watch closely for changes in your health, and be sure to contact your doctor if: You have digestive problems that get worse or occur more often. You are losing weight. Where can you learn more? To learn more about "Gastroparesis: Care Instructions", log into your PubNub account at [email or web address]. You can enter [email or web address] in the Posibl." search box. Not on PubNub? Review the PubNub section of your After Visit Summary for directions on ho w to sign up. [id number] [employer]. Care instructions adapted under license by [facility] [employer]. This care instruction is for use with your licensed [employer] professional. If you have questions about a medical condition or this instruction, always ask your healthcare professional. [employer] disclaims any warranty or liabili ty for your use of this information. Content Version: [id number]; Current as of: October 03, 2015 documented in this encounter Medications at Time [...] + + | BASIC METABOLIC SET | Urgent | 08/08/2016 | | Results for this | | (NA, K, CL, TCO2, | | 4:38 PM | | procedure are in the | | BUN, CR, GLU, CA) | | PDT | | results section. | + +--------+ + + + | 12 LEAD ECG | Routin | 08/08/2016 | | Results for this | | | e | 4:37 PM | | procedure are in the | | | | PDT | | results section. | + +--------+ + + + | UA, DIPSTICK ONLY | Urgent | 08/08/2016 | | Results for this | | | | 2:59 PM | | procedure are in the | | | | PDT | | results section. | + +--------+ + + + | URINE, MICROSCOPIC | Urgent | 08/08/2016 | | Results for this | | EXAM | | 2:59 PM | | procedure are in the | | | | PDT | | results section. | + +--------+ + + + | URINE SCREEN FOR | Urgent | 08/08/2016 | | Results for this | | CULTURE | | 2:59 PM | | procedure are in the | | | | PDT | | results section. | + +--------+ + + + | HCG QUAL, URINE | Urgent | 08/08/2016 | | Results for this | | | | 2:59 PM | | procedure are in the | | | | PDT | | results section. | + +--------+ + + + | URINE CULTURE WORKUP | Routin | 08/08/2016 | | Results for this | | | e | 2:59 PM | | procedure are in the | | | | PDT | | results section. | + +--------+ + + + | CULTURE, URINE [facility] | Routin | 08/08/2016 | | Results for this | | | e | 2:59 PM | | procedure are in the | | | | PDT | | results section. | + +--------+ + + + | CBC AND AUTO DIFF | Urgent | 08/08/2016 | | Results for this | | | | 2:22 PM | | procedure are in the | | | | PDT | | results section. | + +--------+ + + + | CBC, WITH | Urgent | 08/08/2016 | | Results for this | | DIFFERENTIAL | | 2:22 PM | | procedure are in the | | | | PDT | | results section. | + +--------+ + + + | COMPLETE METABOLIC | Urgent | 08/08/2016 | | Results for this | | SET | | 2:22 PM | | procedure are in the | | (NA,K,CL,CO2,BUN,CRE | | PDT | | results section. | | AT,GLUC,CA,AST,ALT,B | | | | | | [place] TOTAL,ALK | | | | | | PHOS,ALB,PROT TOTAL) | | | | | + +--------+ + + + | LIPASE, PLASMA | Urgent | 08/08/2016 | | Results for this | | | | 2:22 PM | | procedure are in the | | | | PDT | | results section. | + +--------+ + + + | ED INFORMATION | Routin | 08/08/2016 | | Results for this | | EXCHANGE | e | 12:21 PM | | procedure are in the | | | | PDT | | results section. | + +--------+ + + + documented in this encounter Results BASIC METABOLIC SET (NA, K, CL, TCO2, BUN, CR, GLU, CA) (08/08/2016 4:38 PM PDT) + +---------+ + + + | Component | Value | Ref Range | Performed | Pathologist | | | | | At | Signature | + +---------+ + + + | GLUCOSE, | 80 | 60 - 99 mg/dL | [facility] | | | PLASMA | | | LABORATORY | | | (LAB) | | | SERVICES, | | | | | | CORE | | + +---------+ + + + | BUN, PLASMA | 9 | 6 - 20 mg/dL | [facility] | | | (LAB) | | | LABORATORY | | | | | | SERVICES, | | | | | | CORE | | + +---------+ + + + | CREATININE | 0.82 | 0.60 - 1.10 | [facility] | | | PLASMA | | mg/dL | LABORATORY | | | (LAB) | | | SERVICES, | | | | | | CORE | | + +---------+ + + + | EGFR | >60 | >60 mL/min | [facility] | | | - | | | LABORATORY | | | [place] | | | SERVICES, | | | | | | CORE | | + +---------+ + + + | EGFR NON | >60 | >60 mL/min | [facility] | | | -KEY | | | LABORATORY | | | RICAN | | | SERVICES, | | | | | | CORE | | + +---------+ + + + | SODIUM, | 143 | 136 - 145 | [facility] | | | PLASMA | | mmol/L | LABORATORY | | | (LAB) | | | SERVICES, | | | | | | CORE | | + +---------+ + + + | POTASSIUM, | 3.7 | 3.4 - 5.0 | [facility] | | | PLASMA | | mmol/L | LABORATORY | | | (LAB) | | | SERVICES, | | | | | | CORE | | + +---------+ + + + | CHLORIDE, | 110 (H) | 97 - 108 mmol/L | [facility] | | | PLASMA | | | LABORATORY | | | (LAB) | | | SERVICES, | | | | | | CORE | | + +---------+ + + + | TOTAL CO2, | 26 | 21 - 32 mmol/L | [facility] [...] + + + | ANION GAP | 7 | mmol/L | [facility] | | | [...] | Specimen | + + | Blood | + + + + + | Narrative | Performed At | + + + | GFR is estimated using the MDRD equation recommended by the | [facility] | | National Kidney Disease Education Program. Estimated GFR | LABORATORY | | Interpretive Information: <60 mL/min/1.73 sq | SERVICES, CORE | | m Chronic Kidney Disease <15 mL/min/1.73 | | | sq m Kidney Failure Estimated GFR greater | | | that 60 mL/min/1.73 sq m is of limited clinical value. The MDRD | | | equation is not valid in the following situations: - Patients under | | | 18 years of age - Severe malnutrition or obesity - Vegetarian diet | | | - Rapidly changing kidney function | | + + + + + + + + | Performing | Address | City/State/Zipcode | Phone Number | | Organization | | | | + + + + + | [facility] | [address] | [place] [address] | | | SERVICES, CORE | [address] | | | + + + + + 12 LEAD ECG (08/08/2016 4:37 PM PDT) + + + + + + | Component | Value | Ref Range | Performed | Pathologist | | | | | At | Signature | + + + + + + | VENTRICULAR | 60 | bpm | [facility] | | | RATE | | | OF | | | | | | CARDIOLOGY | | + + + + + + | ATRIAL RATE | 60 | ms | [facility] | | | | | | OF | | | | | | CARDIOLOGY | | + + + + + + | P-R | 140 | ms | [facility] | | | INTERVAL | | | OF | | | | | | CARDIOLOGY | | + + + + + + | P AXIS | 56 | deg | [facility] | | | | | | OF | | | | | | CARDIOLOGY | | + + + + + + | QRS | 78 | ms | [facility] | | | DURATION | | | OF | | | | | | CARDIOLOGY | | + + + + + + | QT | 392 | ms | [facility] | | | | | | OF | | | | | | CARDIOLOGY | | + + + + + + | QTCB | 392 | ms | [facility] | | | | | | OF | | | | | | CARDIOLOGY | | + + + + + + | R AXIS | -31 | deg | [facility] | | | | | | OF | | | | | | CARDIOLOGY | | + + + + + + | T AXIS | 62 | deg | [facility] | | [...] | | OF | | | | 08-09-2016 08:59:19 | | CARDIOLOGY | | + + [...] + + + + + | [facility] | [address] | [place], [place] | | | CARDIOLOGY | [address] | [address] | | + + + + + URINE, MICROSCOPIC EXAM (08/08/2016 2:59 PM PDT) + + + + + + | Component | Value | Ref Range | Performed | Pathologist | | | | | At | Signature | + + + + + + | RED CELLS | 19 (H) | 0 - 3 /hpf | [facility] | | | | | | LABORATORY | | | | | | SERVICES, | | | | | | CORE | | + + + + + + | WHITE CELLS | 2 | 0 - 5 /hpf | [facility] | | | | | | LABORATORY | | | | | | SERVICES, | | | | | | CORE | | + + + + + + | BACTERIA | None | None /hpf | [facility] | | | | | | LABORATORY | | | | | | SERVICES, | | | | | | CORE | | + + + + + + | YEAST (LAB) | None | None /hpf | [facility] | | | | | | LABORATORY | | | | | | SERVICES, | | | | | | CORE | | + + + + + + | SQUAMOUS | Moderate (A) | None /hpf | [facility] | | | EPITHELIAL | | | LABORATORY | | | | | | SERVICES, | | | | | | CORE | | + + + + + + | MUCOUS | None | None /hpf | [facility] | | | | | | LABORATORY | | | | | | SERVICES, | | | | | | CORE | | + + + + + + | TRICHOMONAS | None | None /hpf | [facility] | | | | | | LABORATORY | | | | | | SERVICES, | | | | | | CORE | | + + + + + + | NON-SQUAMOU | None | None /hpf | [facility] | | | S EPITH | | | LABORATORY | | | | | | SERVICES, | | | | | | CORE | | + + + + + + | HYALINE | 0 | 0 - 2 /lpf | [facility] | | | CASTS | | | LABORATORY | | | | | | SERVICES, | | | | | | CORE | | + + + + + + | GRANULAR | 0 | 0 - 2 /lpf | [facility] | | | CASTS | | | LABORATORY | | | | | | SERVICES, | | | | | | CORE | | + + + + + + | CELLULAR | 0 | <=0 /lpf | [facility] | | | CASTS | | | LABORATORY | | | | | | SERVICES, | | | | | | CORE | | + + + + + + | TRIPLE P04 | None | None /hpf | [facility] | | | CRYSTALS | | | LABORATORY | | | | | | SERVICES, | | | | | | CORE | | + + + + + + | CALCIUM | None | None /hpf | [facility] | | | OXALATE | | | LABORATORY | | | [place] | | | SERVICES, | | | | | | CORE | | + + + + + + | URIC ACID | None | None /hpf | [facility] | | | CRYSTALS | | | LABORATORY | | | | | | SERVICES, | | | | | | CORE | | + + + + + + | AMORPHOUS | None | None /hpf | [facility] | | | CRYSTALS | | | LABORATORY | | | | | | SERVICES, | | | | | | CORE | | + + + + + + + + | Specimen | + + | Urine | + + + + + + + | Performing | Address | City/State/Zipcode | Phone Number | | Organization | | | | + + + + + | [facility] | [address] | [place] [address] | | | SERVICES, CORE | [address] | | | + + + + + URINE SCREEN FOR CULTURE (08/08/2016 2:59 PM PDT) + + + + + + | Component | Value | Ref Range | Performed | Pathologist | | | | | At | Signature | + + + + + + | URINE | Positive (A) | Negative | [facility] | | | SCREEN FOR | | | LABORATORY | | | CULTURE | | | SERVICES, | | | | | | CORE | | + + + + + + + + | Specimen | + + | Urine | + + + + + | Narrative | Performed At | + + + | Culture Screen Positive, specimen sent for culture. | [facility] | | | LABORATORY | | | [address] | + + + + + + + + | Performing | Address | City/State/Zipcode | Phone Number | | Organization | | | | + + + + + | [facility] | [address] | [place] [address] | | | [address] | [address] | | | + + + + + UA, DIPSTICK ONLY (08/08/2016 2:59 PM PDT) + + + + + [...] + + + + | PROTEIN(LAB | Negative | Negative, 30.0 | [facility] | | [...] + + + + | PH(UR) | 7.0 | 5.0 - 8.0 | [facility] | | | | | | LABORATORY | | | | | | SERVICES, | | | | | | CORE | | + + + + + + | BLOOD | Negative | Negative | [facility] | | | | | | LABORATORY | | | | | | SERVICES, | | | | | | CORE | | + + + + + + | KETONES | Negative | Negative mg/dL | [facility] | | [...] + + + + | LEUKOCYTE | Small (A) | Negative | [facility] | | | ESTERASE | | | LABORATORY | | | | | | SERVICES, | | | | | | CORE | | + + + + + + | SPECIFIC | 1.009 | 1.005 - 1.030 | [facility] | | | GRAVITY | | | LABORATORY | | | | | | SERVICES, | | | | | | CORE | | + + + + + + + + | Specimen | + + | Urine | + + + + + + + | Performing | Address | City/State/Zipcode | Phone Number | | Organization | | | | + + + + + | [facility] | [address] | [place] [address] | | | SERVICES, CORE | [address] | | | + + + + + HCG QUAL, URINE (08/08/2016 2:59 PM PDT) + + + + + [...] Urine | + + + + + + + | Performing | Address | City/State/Zipcode | Phone Number | | Organization | | | | + + + + + | [facility] | [address] | [place] [address] | | | SERVICES, CORE | [address] | | | + + + + + URINE CULTURE WORKUP (08/08/2016 2:59 PM PDT) + + | Specimen | + + | Urine - Urine | + + + + + | Narrative | Performed At | + + + | Culture Report: Multiple organisms are present indicating probable | [facility] | | contamination or colonization not related to infection. Further | [facility] - | | work-up of these organisms may result in clinically misleading | [place] | | information due to the low numbers and /or mixture of organisms | | | present. Recollection is suggested if clinically indicated. | | + + + + + + + + | Performing | Address | City/State/Zipcode | Phone Number | | Organization | | | | + + + + + | [facility] | [address] | [place] [address] | | | [place] | | | | + + + + + CULTURE, URINE [facility] (08/08/2016 2:59 PM PDT) + + + + + + | Component | Value | Ref Range | Performed | Pathologist | | | | | At | Signature | + + + + + + | URINE | See Cx Results (A) | | [facility] | | | CULTURE | | | LABORATORY | | | [facility] | | | SERVICES, | | | | | | CORE | | + + + + + + + + | Specimen | + + | Urine | + + + + + + + | Performing | Address | City/State/Zipcode | Phone Number | | Organization | | | | + + + + + | [facility] | [address] | [place] [address] | | | SERVICES, CORE | [address] | | | + + + + + CBC AND AUTO DIFF (08/08/2016 2:22 PM PDT) + + + + + + | Component | Value | Ref Range | Performed | Pathologist | | | | | At | Signature | + + + + + + | WHITE CELL | 6.81 | 4.40 - 11.00 | [facility] | | | COUNT | | K/cu mm | LABORATORY | | | | | | SERVICES, | | | | | | CORE | | + + + + + + | RED CELL | 4.55 | 4.00 - 5.20 | [facility] | | | COUNT | | M/cu mm | LABORATORY | | | | | | SERVICES, | | | | | | CORE | | + + + + + + | HEMOGLOBIN | 14.1 | 12.0 - 16.0 | [facility] | | | | | g/dL | LABORATORY | | | | | | SERVICES, | | | | | | CORE | | + + + + + + | HEMATOCRIT | 41.8 | 36.0 - 46.0 % | [facility] | | | | | | LABORATORY | | | | | | SERVICES, | | | | | | CORE | | + + + + + + | MCV | 91.9 | 80.0 - 96.0 fL | [facility] | | | | | | LABORATORY | | | | | | SERVICES, | | | | | | CORE | | + + + + + + | MCHC | 33.7 | 33.0 - 35.5 | [facility] | | | | | g/dL | LABORATORY | | | | | | SERVICES, | | | | | | CORE | | + + + + + + | RDW SD | 40.8 | 35.1 - 46.3 fL | [facility] | | | | | | LABORATORY | | | | | | SERVICES, | | | | | | CORE | | + + + + + + | PLATELET | 291 | 150 - 400 K/cu | [facility] | | | COUNT | | mm | LABORATORY | | | | | | SERVICES, | | | | | | CORE | | + + + + + + | MPV | 10.6 | 9.7 - 12.3 fL | [facility] [...] + + + + | NEUTROPHIL | 48.8 (L) | 50.0 - 70.0 % | [facility] | | | % | | | LABORATORY | | | | | | SERVICES, | | | | | | CORE | | + + + + + + | LYMPHOCYTE | 42.3 (H) | 18.0 - 42.0 % | [facility] | | | % | | | LABORATORY | | | | | | SERVICES, | | | | | | CORE | | + + + + + + | MONOCYTE % | 5.9 | 3.5 - 9.0 % | [facility] | | | | | | LABORATORY | | | | | | SERVICES, | | | | | | CORE | | + + + + + + | EOS % | 2.1 | 1.0 - 3.0 % | [facility] | | | | | | LABORATORY | | | | | | SERVICES, | | | | | | CORE | | + + + + + + | BASO % | 0.6 | 0.0 - 2.0 % | [facility] [...] + + + + | NEUTROPHIL | 3.33 | 1.80 - 7.70 | [facility] | | | # | | K/cu mm | LABORATORY | | | | | | SERVICES, | | | | | | CORE | | + + + + + + | LYMPHOCYTE | 2.88 | 1.00 - 4.80 | [facility] | | | # | | K/cu mm | LABORATORY | | | | | | SERVICES, | | | | | | CORE | | + + + + + + | MONOCYTE # | 0.40 | 0.10 - 0.90 | [facility] | | | | | K/cu mm | LABORATORY | | | | | | SERVICES, | | | | | | CORE | | + + + + + + | EOS # | 0.14 | 0.00 - 0.50 | [facility] | | | | | K/cu mm | LABORATORY | | | | | | SERVICES, | | | | | | CORE | | + + + + + + | BASO # | 0.04 | 0.00 - 0.10 | [facility] | | | | | K/cu mm | LABORATORY | | | | | | SERVICES, | | | | | | CORE | | + + + + + + | IG# | 0.02 | 0.00 - 0.03 | [facility] | | | | | K/cu mm | LABORATORY | | | | | | SERVICES, | | | | | | CORE | | + + + + + + + + | Specimen | + + | Blood | + + + + + | Narrative | Performed At | + + + | Immature Granulocytes (IG) include metamyelocytes, myelocytes | [facility] | | and promyelocytes. Bands are not included in the IG count. Bands | LABORATORY | | are included in the neutrophil count. | [facility] | + + + + + + + + | Performing | Address | City/State/Zipcode | Phone Number | | Organization | | | | + + + + + | [facility] | [address] | [place] [address] | | | SERVICES, [place] | [address] | | | + + + + + LIPASE, PLASMA (08/08/2016 2:22 PM PDT) + +---------+ + + + | Component | Value | Ref Range | Performed | Pathologist | | | | | At | Signature | + +---------+ + + + | LIPASE | 116 (L) | 152 - 353 U/L | [facility] | | | (LAB) | | | LABORATORY | | | | | | SERVICES, | | | | | | CORE | | + +---------+ + + + + + | Specimen | + + | Blood | + + + + + + + | Performing | Address | City/State/Zipcode | Phone Number | | Organization | | | | + + + + + | [facility] | [address] | [place] [address] | | | SERVICES, CORE | [address] | | | + + + + + COMPLETE METABOLIC SET (NA,K,CL,CO2,BUN,CREAT,GLUC,CA,AST,ALT,BILI TOTAL,ALK PHOS,ALB,PROT TOTAL) (08/08/2016 2:22 PM PDT) + + + + + + | Component | Value | Ref Range | Performed | Pathologist | | | | | At | Signature | + + + + + + | GLUCOSE, | 82 | 60 - 99 mg/dL | [facility] | | | PLASMA | | | LABORATORY | | | (LAB) | | | SERVICES, | | | | | | CORE | | + + + + + + | BUN, PLASMA | 10 | 6 - 20 mg/dL | [facility] | | | (LAB) | | | LABORATORY | | | | | | SERVICES, | | | | | | CORE | | + + + + + + | CREATININE | 0.85 | 0.60 - 1.10 | [facility] | | | PLASMA | | mg/dL | LABORATORY | | | (LAB) | | | SERVICES, | | | | | | CORE | | + + + + + + | EGFR | >60 | >60 mL/min | [facility] | | | - | | | LABORATORY | | | [place] | | | SERVICES, | | | | | | CORE | | + + + + + + | EGFR NON | >60 | >60 mL/min | [facility] | | | -KEY | | | LABORATORY | | | RICAN | | | SERVICES, | | | | | | CORE | | + + + + + + | SODIUM, | 140 | 136 - 145 | [facility] | | | PLASMA | | mmol/L | LABORATORY | | | (LAB) | | | SERVICES, | | | | | | CORE | | + + + + + + | POTASSIUM, | 5.7 (H) | 3.4 - 5.0 | [facility] | | | PLASMA | | mmol/L | LABORATORY | | | (LAB) | | | SERVICES, | | | | | | CORE | | + + + + + + | CHLORIDE, | 106 | 97 - 108 mmol/L | [facility] | | | PLASMA | | | LABORATORY | | | (LAB) | | | SERVICES, | | | | | | CORE | | + + + + + + | TOTAL CO2, | 27 | 21 - 32 mmol/L | [facility] | | | PLASMA | | | LABORATORY | | | (LAB) | | | SERVICES, | | | | | | CORE | | + + + + + + | CALCIUM, | 9.4 | 8.6 - 10.2 | [facility] | | | PLASMA | | mg/dL | LABORATORY | | | (LAB) | | | SERVICES, | | | | | | CORE | | + + + + + + | CALCIUM(ALB | 9.1 | 8.6 - 10.2 | [facility] | | | CORRECTED) | | mg/dL | LABORATORY | | | | | | SERVICES, | | | | | | CORE | | + + + + + + | BILIRUBIN | 0.5 | 0.3 - 1.2 mg/dL | [facility] | | | TOTAL | | | LABORATORY | | | | | | SERVICES, | | | | | | CORE | | + + + + + + | TOTAL | 8.0 | 6.4 - 8.2 g/dL | [facility] | | | PROTEIN, | | | LABORATORY | | | PLASMA | | | SERVICES, | | | (LAB) | | | CORE | | + + + + + + | ALBUMIN, | 4.4 | 3.5 - 4.7 g/dL | [facility] | | | PLASMA | | | LABORATORY | | | (LAB) | | | SERVICES, | | | | | | CORE | | + + + + + + | ALK PHOS | 64 | 42 - 98 U/L | [facility] | | | | | | LABORATORY | | | | | | SERVICES, | | | | | | CORE | | + + + + + + | AST(SGOT) | 41 | <=41 U/L | [facility] | | | | | | LABORATORY | | | | | | SERVICES, | | | | | | CORE | | + + + + + + | ALT (SGPT) | 19 | <=60 U/L | [facility] | | | | | | LABORATORY | | | | | | SERVICES, | | | | | | CORE | | + + + + + + | ANION GAP | 7 | mmol/L | [facility] | | | | | | LABORATORY | | | | | | SERVICES, | | | | | | CORE | | + + + + + + | ANION | 6 | 4 - 11 mmol/L | [facility] | | | GAP(ALB | | | LABORATORY | | | CORRECTED) | | | SERVICES, | | | | | | CORE | | + + + + + + | POTASSIUM | Mod Hemo | | [facility] | | | CMNT | | | LABORATORY | | | | | | SERVICES, | | | | | | CORE | | + + + + + + | BILI T CMNT | Mod Hemo | | [facility] | | | | | | LABORATORY | | | | | | SERVICES, | | | | | | CORE | | + + + + + + | AST CMNT | Mod Hemo | | [facility] | | | | | | LABORATORY | | | | | | SERVICES, | | | | | | CORE | | + + + + + + + + | Specimen | + + | Blood | + + + + + | Narrative | Performed At | + + + | Sample hemolyzed. Results for K, Total Bili, Direct Bili, AST, | [facility] | | LDH, or HDL may be inaccurate. Refer to comment under test result. | LABORATORY | | GFR is estimated using the MDRD equation recommended by the National | SERVICES, CORE | | Kidney Disease Education Program. Estimated GFR Interpretive | | | Information: <60 mL/min/1.73 sq m Chronic | | | Kidney Disease <15 mL/min/1.73 sq m | [...] | + + + + + | [facility] | [address] | [place] [address] | | | [address] | [address] | | | + + + + + ED INFORMATION EXCHANGE (08/08/2016 12:21 PM PDT) + + + + + + | Component | Value | Ref Range | Performed | Pathologist | | | | | At | Signature | + + + + + + | [facility] | [id number] | | COLLECTIVE | | | | [id number] | | MEDICAL | | | | | | TECHNOLOGIE | | | | | | S | | + + + + + + + + | Specimen | + + | | + + + + + | Narrative | Performed At | + + + | [facility] has no Care Guidelines for this patient. ED/C VISIT | COLLECTIVE | | TRACKING (3 MO.) Visit | MEDICAL | | Date Location | TECHNOLOGIES | | [facility] ST Type Dx / | | | Complaint | | | -------- | | | ------- ---- | | | 08/08/2016 12:21 [facility] | | | and [facility] [place] Emergency [id number]. | | | abd pain 08/04/2016 03:50 [facility] | | | [facility] [address] | | | [place] Emergency ABD PAIN,VOMITING 06/26/2016 | | | 22:44 [facility] Carp[facility] | | | [facility] | | | [place] Emergency -Acquired absence of other specified parts | | | of | | | | | | | | | digestive tract | | | | | | | | | -Gastroparesis | | | | | | | | | -Unspecified abdominal pain | | | | | | | | | -Gastro-esophageal reflux disease | | | without esophagitis | | | | | | | | | -Other half-way (current) drug | | | therapy 06/22/2016 17:35 [facility] | | | [facility] | | | [place] Emergency -abd pain, "I have gastroparesis", since | | | tues, seen | | | | | | | | | at [facility] yesterday. has been | | | to the er | | | | | | | | | several times | | | | | | | | | -Abdominal Pain | | | | | | | | | -Gastroparesis 06/19/2016 | | | 04:51 LEIDA Carpio | | | H. [place]endl. | | | [place] Emergency -Gastroparesis | | | | | | | | | -Unspecified abdominal pain | | | | | | | | | -Other half-way (current) drug | | | therapy | | | | | | | | | -Acquired absence of other specified | | | parts of | | | | | | | | | digestive tract 06/18/2016 | | | 07:18 LEIDA Carpio | | | H. [place]. | | | [place] Emergency -Acquired absence of both cervix and uterus | | | | | | | | | | | | -Nausea with vomiting, unspecified | | | | | | | | | -Gastro-esophageal reflux disease | | | without esophagitis | | | | | | | | | -Gastroparesis | | | | | | | | | -Unspecified abdominal pain | | | | | | | | | -Other specified postprocedural states | | | INPATIENT VISIT TRACKING (1 MO.) Visit | | | Date LocationCity ST TypeDx / Complaint | | | | | | ED VISIT COUNT (1 YR.) | | | Visits Location ------ --------- 1 | | | [facility] [place] [facility] | | | [facility] 8 LEIDA Carpio H. | | | 10 Total Note: Visits indicate total known visits. | | | | | | | | | --- CARE PROVIDERS | | | Name Ph | | | one Type Service | | | Dates | | | ---- -- | | | --- ---- ------- | | | ------ Allegra zacarias Primary | | | Care Unknown Primary | | | Care Unknown - Current | | + + + + + + + + | Performing | Address | City/State/Zipcode | Phone Number | | Organization | | | | + + + + + | [facility] | [address], | [place], [place] | [phone] | | [employer] | [address] | [address] | | + + + + + documented in this encounter Visit Diagnoses + + | Diagnosis | + + | Abdominal pain, unspecified abdominal location - Primary | + + | Gastroparesis | + + documented in this encounter Administered Medications + +---------+ + +------+------+ | Medication Order | MAR | Action | Dose | Rate | Site | | | Action | Date | | | | + +---------+ + +------+------+ | acetaminophen (OFIRMEV) IV | New Bag | 08/08/20 | 1,000 mg | | | | 1,000 mg 1,000 mg, intravenous, | | 16 3:17 | | | | | ONCE, 1 dose, 08/08/16 at 1545 | | PM PDT | | | | + +---------+ + +------+------+ +---+---+ | | | +---+---+ + +-------+ +--------+---+---------+ | haloperidol lactate (HALDOL) | Given | 08/08/20 | 2.5 mg | | Left | | injection 2.5 mg 2.5 mg, | | 16 2:33 | | | Deltoid | | intramuscular, ONCE, 1 dose, Sun | | PM PDT | | | | | 08/08/16 at 1345 | | | | | | + +-------+ +--------+---+---------+ +---+---+ | | | +---+---+ + +---------+ +-------+---+---+ | ketorolac (TORADOL) injection | IV Push | 08/08/20 | 30 mg | | | | 30 mg 30 mg, intravenous, ONCE, | | 16 2:56 | | | | | 1 dose, [place] 08/08/16 at 1345 | | PM PDT | | | | + +---------+ +-------+---+---+ +---+---+ | | | +---+---+ + +-------+ +------+---+---+ | LORazepam (ATIVAN) tablet 1 mg | Given | 08/08/20 | 1 mg | | | | 1 mg, oral, ONCE, 1 dose, [place] | | 16 3:17 | | | | | 08/08/16 at 1545 | | PM PDT | | | | + +-------+ +------+---+---+ +---+---+ | | | +---+---+ + +---------+ + +---+---+ | NaCl 0.9 % solution 1,000 mL, | New Bag | 08/08/20 | 1,000 mL | | | | intravenous, ONCE, 1 dose, Sun | | 16 2:57 | | | | | 08/08/16 at 1345 | | PM PDT | | | | + +---------+ + +---+---+ +---+---+ | | | +---+---+ documented in this encounter
--- OUTSIDE RECORDS SUMMARY | ~2019-08-12 | XMS | Encounter Summary ---
Demographics + + + | Address | [address] | | | [place] [address] | + + + | Home Phone [...] Team Providers + +------+ + | Care Lens Assorter Name | Role | Phone | + [...] | CRPS | Dale Martinez MD | [facility] [address] | | | | | (complex | [address] | [address] | | | | | regional | [address] | [address] | | | | | pain | Mailstop | Mailcode: | | | | | syndrome), | [id number] | [address] | | | | | lower limb | [place], [place] | [address] | | | | | Procedures | [address] | [place], [place] | | | | | NM BONE &/OR | Phone: | [address] | | | | | JOINT | [phone] | Phone: | | | | | IMAGING 3 | Fax: | [phone] | | | | | PHASE | [phone] | Fax: | | | | | | | [phone] | +--------+--------+ + + + + Consult [...] | | | regional | [place] | [address] | | | | | pain | FAMILY | Mailstop | | | | | syndrome), | MEDICINE P | [id number] | | | | | lower limb | [address] | [place], [place] | | | | | Gait | [place], | [address] | | | | | disturbance | [place] [address] | Phone: | | | | | Muscle pain | Phone: | [phone] | | | | | Procedures | [phone] | Fax: | | | | | REQUEST TO | Fax: | [phone] | | | | | SURGERY | [phone] | | | | | | CUSTOMER SERVICE ADMINISTRATOR | | | +--------+--------+ + + + + Consultation (Routine) +--------+--------+ + + + + | Status | Reason | Specialty | Diagnoses / | Referred By | Referred To | | | | | Procedures | Contact | Contact | +--------+--------+ + + + + | Closed | | Psychology / | Diagnoses | Beulah, | Accountant Auditor Psych | | | | Pain | CRPS | Dale Martinez MD | [facility] [address] | | | | Management | (complex | [address] | | | | | regional | [address] | Mailcode: | | | | | pain | Mailstop | [facility] | | | | | syndrome), | [id number] | for Health | | | | | lower limb | [place], [place] | and Healing, | | | | | Gait | [address] | Building [address], | | | | | disturbance | Phone: | 15th Floor | | | | | Muscle pain | [phone] | [place], [place] | | | | | Procedures | Fax: | [address] | | | | | CONSULT TO | [phone] | Phone: | | | | | PAIN CENTER | | [phone] | | | | | | | Fax: | | | | | | | [phone] | +--------+--------+ + + + + Physical Therapy (Routine) +--------+--------+ + + + + | Status | Reason | Specialty | Diagnoses / | Referred By | Referred To | | | | | Procedures | Contact | Contact | +--------+--------+ + + + + | Closed | | Physical | Diagnoses | Beulah, | Edu Pt Accountant Auditor | | | | Therapy | CRPS | Dale Martinez MD | [address] | | | | | (complex | [address] | | | | | regional | [address] | Mailcode: | | | | | pain | Mailstop | [facility] | | | | | syndrome), | [id number] | for Health | | | | | lower limb | [place], [place] | and Healing, | | | | | Gait | [address] | Building 1 | | | | | disturbance | Phone: | [place], [place] | | | | | Muscle pain | [phone] | [address] | | | | | Procedures | Fax: | Phone: | | | | | PHYSICAL | [phone] | [phone] | | | | | THERAPY | [...] | | | sympathetic | [place]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 | FAMILY | Mailstop | | | | | of lower | MEDICINE P | [id number] | | | | | limb | [address] | [place], [place] | | | | | | [place], | [address] | | | | | | [place] [address] | Phone: | | | | | | Phone: | [phone] | | | | | | [phone] | Fax: | | | | | | Fax: | [phone] | | | | | | [phone] | | +--------+--------+ + + + + Encounter Details +--------+---------+ + + + | Date | Type | Department | Care Team | Description | +--------+---------+ + + + | 02/13/ | Office | [facility] | Dale Cantu, | CRPS (complex | | 2011 | Visit | Pain Center at | [address] | regional pain | | | | [facility] | [address] [id number] | syndrome), lower | | | | [address] | [place], [place] | limb; Gait | | | | Mailcode: [facility] | [address] | disturbance; Muscle | | | | [place] for [facility] | [phone] | pain; Adjustment | | | | and Healing, | | reaction | | | | Building | | | | | | Floor [place], [place] | | | | | | [address] | | | | | | [phone] | | | +--------+---------+ + + + [...] AM PDTThis is a copy of the dra conklin of my suggestions to your doctors. Meds [...] Diagnostic evaluation: Records from CRPS program at [facility]. 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 2. [...] employed by the psychologists here at the [facility]. 2.2 Physical therapy can reduce pain and improve functional status. Suggest Guillermo Sanon . 3. Medication suggestions: 3.1 Continue titrating up duloxetine. 3.2 As for any patient being managed with chronic opioids, we do recommend that the patien t have a signed [place] Material Risk Notice, agree to whatever refill [...] procedure to assess the effects in detail. [facility] Pre-Procedure Instructions: The procedure you discussed with your doctor is called: LUMBAR SYMPATHETIC BLOCK. Please m sintia sure this is scheduled with the Yacht Master. Please bring a rolloff truck driver with you. We may give you medications that make you drowsy or otherw ise unsafe to drive. If you do not have a rolloff truck driver, we will not be able [...] Molecular Heparin (Lovenox), PLEASE inform the Procedure Marla moore TODAY. PLEASE CONTACT THE COMPREHENSIVE PAIN CENTER AT [phone] ([phone]) FOR QUESTIONS OR IF YOU NEED TO CANCEL YOUR APPOINTMENT. [facility] documented in this encounter [...] negative. Physical Exam Ortho Exam Neurologic Exam ale Cantu MD - 0 02/13/2012 10:54 PM PDT [facility] Office Visit . 02/13/2012 Tracie Farah; ; : 1990 Ms. Farah was referred for pain management consultation by BJORN Mi [facility] [address] [place] [address] Reason for visit Chief Complaint Patient presents with Pain in left leg Ankle pain left History of Present Illness: Tracie Farah is a 21 year old female with pain locate d in left lower extremity. She has been diagnosed with CRPS. She is referred to [facility] for consultation regarding this ongoing pain problem with the following spec [place] health issues to be addressed: Other options for [...] by several orthopedic surgeons, Dr. Charles in [place], physical therapy, Occupational Therapy. Diagnostic and radiologic [...] no pain relief. Admitted to the inpatient [facility] program for 1 month in the [...] entin, pregabalin, topiramate, tramadol, multiple opioids. Current [place] about 6-8/day. St arting duloxetine, at 30 mg/day. She feels that the most effective medication treatments ar e or have been opioids. As a result of her pain, Ms. Farah notes multiple changes in her life, including: "I don 't have a life, can't work, can't go to school." Poor mood, sleep, activity. Using crutche s recently because of pain flare. 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 Goes to [employer] with a light load. Has been working at [employer], can' t work on [employer]. Has roommates. Current Medication List 02/14/12 9:50 [...] Anaphylaxis As part of today's visit the [facility] new patient questionnaire was [...] from your visits to the [facility] ? Other (describe): ketamine, any [...] patient is nervous/anx ious. Depression: 03/23 Anxiety: 6-05/23 Sleep: poor Physical Exam Vitals reviewed. Constitutional: [...] ricks, the pediatric inpatient pain program at [facility], and two attempted lumbar sympathetic blocks. [...] avenous immunoglobulin infusion in CRPS patients (Loretta Rousseau, et al. Katrina Power Cleaner Operator Med. 2010;152: 152-158). Other treatment options for the future: Spinal cord stimulation (SCS) has good evidence f or providing shelter relief in CRPS (Complex Regional Pain Syndrome) and specifically in p atients who have temporary response to sympathetic block (Belem REESE et al. NEJM 2000;343(9): 618-624; Belem REESE et al. J Neurosurg 2008;108(2):292-298; Danette H, et al. Eur J Pain: 200 5;9(4):363-373). In addition to pain relief, the study by Danetet demonstrated improvement in function and reduction in medication use. The initial step is placement of a trial system. We discussed the goals of pain treatment: +Decrease pain +Decrease the suffering that accompanies the pain +Improve function +Help gain control over the pain as much as possible. Recommendations: 1. Diagnostic evaluation: [facility] Suggest three ph ase bone scan-- ordered. [...] employed by the psychologists here at the [facility]. ORDER PLACED 2.2 Physical therapy can reduce pain and improve functional status. Suggest Guillermo Sanon . ORDER PLACED 3. Medication suggestions: 3.1 Continue titrating up duloxetine. 3.2 As for any patient being managed with chronic opioids, we do recommend that the patien t have a signed [facility] Material Risk Notice, agree to whatever refill [...] her PCP, BJORN Villanueva. DALE CANTU MD Freight Car Repairer, [facility] Medical Health Researcher, Pain Medicine Professor, Anesthesiology & Perioperative Medicine [...] | | | | | | 17:13:00 | | | | | | COMPARISON: None | | | | | | HISTORY: Left lower | | | | | | leg pain PROCEDURE: | | | | | | Following intravenous | | | | | | [...] | | | | | | imageswere | | | | | | obtained. At 2 1/2 | | | | | | hours following | | | | | | injection, delayed | | | | | | images ofthe feet were | | | | | | imaged. FINDINGS: The | | | | | | angiographic phase was | | | | | | normal. The tissue | | | | | | phase wasalso | | | | | | normal. On the | | | | | | delayed phase there is | | | | | | increased uptake at | | | | | | theleft lateral | | | | | | malleolus extending 4 cm | | | | [...] | | | | | | phases | | | | | | bilaterally. Increase | | | | | | d uptakeon the delayed | | | | | | phase in the left | | | | | | lateral [...] | | | | | | Gerry Canadayasmine 02/15/2012 | | | | | | [...]
--- OUTSIDE RECORDS SUMMARY | ~2019-08-12 | XMS | Encounter Summary ---
Demographics + + + | Address | [address] | | | [place] [address] | + + + | Home Phone [...] Author + + + | Author | [facility] | + + + | Organization | [facility] | + + + | Address | Unknown | + + + | Phone | Unavailable | + + + Support + + +---------+ + | Name | Relationship | Address | Phone | + + +---------+ + | Patricia Colin | ECON | Unknown | | + + +---------+ + Care Team Providers + +------+ + | Care Top Trimmer Name | Role | Phone | [...] + + | 10/30/ | Refill | [facility] | Alex Sanchez, | Refill Request | | 2018 | | Pain Center at | ,PhD [address] | | | | | [facility] | [address] | | | | | [address] | [place], [place] | | | | | Mailcode: CH15 | [address] | | | | | [facility] | [phone] | | | | | and Martina, | | | | | | Building | | | | | | Floor [place], [place] | | | | | | [address] | | | | | | [phone] | | | +--------+--------+ + + + [...]
--- OUTSIDE RECORDS SUMMARY | ~2019-08-12 | XMS | Encounter Summary ---
Demographics + + + | Address | [address] | | | [place] [address] | + + + | Home Phone [...] Team Providers + +------+ + | Care Sulfuric Acid Plant Supervisor Name | Role | Phone | [...] [facility] | Diagnoses | Sdrulla, | [facility] | | | | Department | Complex | Alex Alba, | Epic Dept | | | | | regional | ,PhD [address] | | | | | | pain | [address] | | | | | | syndrome | [address] | | | | | | type 1 of | Rd | | | | | | left lower | [place], [place] | | | | | | extremity | [address] | | | | | | Other | Phone: | | | | | | chronic pain | [phone] | | | | | | S/P | Fax: | | | | | | insertion of | [phone] | | | | | | spinal cord | | | | | | | stimulator | | | | | | | Procedures | | | | | | | CONSULT TO | | | | | | | NON - [facility] | | | | | | | PROVIDER | | | +--------+--------+ + + + + Consultation (Routine) +--------+--------+ + + + + | Status | Reason | Specialty | Diagnoses / | Referred By | Referred To | | | | | Procedures | Contact | Contact | +--------+--------+ + + + + | Closed | | Non [facility] | Diagnoses | Sdrulla, | Non[facility] | | | | Department | Complex | Alex Alba, | Epic Dept | | | | | regional | ,PhD [address] | | | | | | pain | [address] | | | | | | syndrome | [address] | | | | | | type 1 of | Rd | | | | | | left lower | [place], [place] | | | | | | extremity | [address] | | | | | | Other | Phone: | | | | | | chronic pain | [phone] | | | | | | S/P | Fax: | | | | | | insertion of | [phone] | | | | | | spinal cord | | | | | | | stimulator | | | | | | | Procedures | | | | | | | CONSULT TO | | | | | | | NON - [facility] | | | | | | | PROVIDER | | | +--------+--------+ + + + + Encounter Details +--------+ + + + + | Date | Type | Department | Care Team | Description | +--------+ + + + + | 04/26/ | Telephone | [facility] | Alex Sanchez, | | | 2018 | | Pain Center at | ,PhD [address] | | | | | [facility] | [facility] | | | | | [address] | [place], [place] | | | | | Mailcode: CH15P | [address] | | | | | [facility] | [phone] | | | | | and [address], | | | | | | | | | | | | Floor [place], [place] | | | | | | [address] | | | | | | [phone] | | | +--------+ + + + [...]
--- OUTSIDE RECORDS SUMMARY | ~2019-08-12 | XMS | Encounter Summary ---
Demographics + + + | Address | [address] | | | [place] [address] | + + + | Home Phone | | + + + | Preferred Language | Unknown | + + + | Marital Status | Single | + + + | Sabianism Affiliation | FMD | + + + [...] Team Providers + +------+ + | Care Engraver Name | Role | Phone | + +------+ + | Justo Vazquez MD | PCP | | + +------+ + Encounter Details +--------+ + + + + | Date | Type | Department | Care Team | Description | +--------+ + + + + | 03/08/ | Hospital | Radiology/Imaging | Ranjeet Amanda, | | | 2018 | Encounter | Lab at [facility] [address] | [address] | | | | | [address] Mailcode: | [place], [place] | | | | | [facility] | [address] | | | | | and [address], | [phone] | | | | | | | | | | | Floor [place], [place] | | | | | | [address] | | | | | | [phone] | | | +--------+ + + + [...] Note | + + | Service Account, Radihdl therapeutics Res In Interface - 03/08/2018 9:42 AM [...]
--- OUTSIDE RECORDS SUMMARY | ~2019-08-12 | XMS | Encounter Summary ---
Demographics + + + | Address | [address] | | | [place] [address] | + + + | Home Phone [...] Team Providers + +------+ + | Care Safety Trainer Name | Role | Phone | + [...] | Procedures | [place] | [place], | | | | | CONSULT TO | [address] | [place] | | | | | PAIN | Phone: | [address] | | | | | MANAGEMENT | [phone] | Phone: | | | | | | Fax: | [phone] | | | | | | [phone] | Fax: | | | | | | | [phone] | + +--------+ + + + + Encounter Details +--------+---------+ + + + | Date | Type | Department | Care Team | Description | +--------+---------+ + + + | 04/23/ | Office | Pain Center at [facility] | Alex Sanchez, | Complex regional | | 2019 | Visit | 15th Floor [address] | ,PhD [address] | pain syndrome type 1 | | | | [address] Mailcode: | [address] | of left lower | | | | [facility] for | [facility] [place] | extremity (Primary | | | | Health and Healing, | [address] | Dx); Other chronic | | | | Building | [phone] | pain ; S/P insertion | | | | Floor [place], [place] | | of spinal cord | | | | [address] | | stimulator | | | | [phone] | | | +--------+---------+ + + + [...] the time to see us in the [facility]. It was great to s ee you. Below is a summary of the discussion that we had today: - I will provide you with a prescription for oxycodone to use only for your monthly pain fl garo. - We reviewed and signed an opioid agreement today. - Please visit the lab on the 1st floor of [facility] to provide a urine sample for a [...] fox in our notes. Alex Sanchez MD,PhD [facility]ronically signed by Alex Sanchez MD,PhD at 04/14 [...] Aleta Lam MD - 1:00 PM PDT [facility] Return Visit Date: 04/23/2019 Chief [...] - DRG Spinal cord stimulator trial with [employer] system (09/25/2018) with 30-40% im provement of typical pain with significant improvement in mobility and function - Left popliteal/sciatic nerve injection AND abdominal scar trigger point injection ( 018) - Spinal cord stimulator trial with Kamida by Janak Riojas MD (08/02/2012) - Left L3 lumbar sympathetic block by Janak Riojas MD (03/01/2012) Opioid Risk Tool (ORT) 04/23/2019 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 Goes to [employer] with a light load. Has been working at [employer], can' t work on [employer]estone. Has roommates. Allergies Allergen Reactions Morphine Anaphylaxis [...] GRAM SOLUTION Take as directed by [facility] Digestive Health- 2 gallon bowel prep POLYETHYLENE [...] with nausea Abdominal pain Abdominal scar neuroma [facility] CLINICAL PROTOCOL PATIENT (CLNPRO) - Implanted Spinal [...] and summary of old medical records (source: [employer]), as summarized in the body of the [...] We performed DRG SCS trial with the [employer] System on 09/25/2018 which provided her with [...] ago. She has not spoken with the [employer] representatives about this. I encouraged her to [...] Key. Aleta Rebollar MD PAIN CENTER AT [facility] 15TH FLOOR [address] [facility] Mail Code: [id number] [place] [address] do cumented in this encounter [...] | + + + + + | [facility] | [address] | [place] [address] | | | SERVICES, CORE | GUILLERMO [...]
--- OUTSIDE RECORDS SUMMARY | ~2019-08-12 | XMS | Encounter Summary ---
Demographics + + + | Address | [address] | | | [place] [address] | + + + | Home Phone [...] + + + | Author | [facility] | + + + | Organization | [facility] | + + + | Address | Unknown | + + + | Phone | Unavailable | + + + Support + + +---------+ + | Name | Relationship | Address | Phone | + + +---------+ + | Patricia Colin | ECON | Unknown | | + + +---------+ + Care Team Providers + +------+ + | Care Muff Winder Name | Role | Phone | + +------+ + | Justo Vazquez MD | PCP | | + +------+ + Encounter Details +--------+ + + + + | Date | Type | Department | Care Team | Description | +--------+ + + + + | 03/12/ | Orthodontic Assistant | [facility] | Alex Sanchez, | Complex regional | | 2019 | | Pain Center at | ,PhD [address] [facility] | pain syndrome type 1 | | | | [facility] | [address] | of left lower | | | | [address] | [place], [place] | extremity; S/P | | | | Mailcode: CH15P | [address] | insertion of spinal | | | | Center for [facility] | [phone] | cord stimulator | | | | and Healing, | | | | | | Building | | | | | | Floor [place], [place] | | | | | | [address] | | | | | | [phone] | | | +--------+ + + + [...]
--- OUTSIDE RECORDS SUMMARY | ~2019-08-12 | XMS | Encounter Summary ---
Demographics + + + | Address | [address] | | | [place] [address] | + + + | Home Phone [...] Providers + +------+ + | Care Research And Development Engineer Name | Role | Phone | + +------+ + | Justo Vazquez MD | PCP | | + +------+ + Encounter Details +--------+ + + + + | Date | Type | Department | Care Team | Description | +--------+ + + + + | 03/16/ | Telephone | [facility] | Crys Gomez, | | | 2017 | | [place] [facility] [address] | [address] | | | | | [address] | [address] | | | | | Mailcode: Center | [place], [place] | | | | | [facility] and | [address] | | | | | [facility], [facility] 2 | [phone] | | | | | [place], [place] | | | | | | [address] | | | | | | [phone] | | | +--------+ + + + [...]
--- OUTSIDE RECORDS SUMMARY | ~2019-08-12 | XMS | Encounter Summary ---
Demographics + + + | Address | [address] | | | [place] [address] | + + + | Home Phone [...] Team Providers + +------+ + | Care Tipple Oiler Name | Role | Phone | [...] | | Pain | CRPS | Janak Maritnez MD | [address] | | | | Management | (complex | [address] | | | | | regional | [address] | Mailcode: | | | | | pain | Mailstop | CH15P Center | | | | | syndrome), | [id number] | for Health | | | | | lower limb | [place], [place] | and Healing, | | | | | Gait | [address] | Building 1, | | | | | disturbance | Phone: | 15th Floor | | | | | Muscle pain | [phone] | [place], [place] | | | | | Procedures | Fax: | [address] | | | | | CONSULT TO | [phone] | Phone: | | | | | PAIN CENTER | | [phone] | | | | | | | Fax: | | | | | | | [phone] | +--------+--------+ + + + + Encounter Details +--------+---------+ + + + | Date | Type | Department | Care Team | Description | +--------+---------+ + + + | 03/20/ | Office | Pain Center at [facility] | Shelia Feldman, PhD | Unspecified | | 2011 | Visit | 15th Floor [address] | | adjustment reaction | | | | [address] Mailcode: | | (Primary Dx) | | | | CH15P [facility] | | | | | | Health and Healing, | | | | | | | | | | | | Floor [place], [place] | | | | | | [address] | | | | | | [phone] | | | +--------+---------+ + + + [...] [facility] Name: Tracie Farah MR#: [id number] Date of : 1990 Date: March 20, 2012 Attending Psychologist: SHELIA FELDMAN, PHD CPT: 56010 Duration: 60min Psych: 309.0 Pain: 355.71 Tracie arrived on time for today's appointment, casually dressed and neatly groomed. Affect was appropriate, mood normothymic. She drove herself today and used crutches. She stated t hat she was doing "better", mainly because she has returned to work at [employer]. She is wo rking about 2 hour shifts; her pain is flared during work but she feels good because she is engaging in life and also is earning money. She reported that she has been cutting down on her pain medication because she wants to improve cognition (currently taking 1-2 daily at [facility] for [facility]). She notes that she cannot [...] discretion, not currently planned. SHELIA FELDMAN, PHD Can Tester Licensed Clinical Psychologist [facility] [place] Department of Anesthesiology & Perioperative Medicine [facility] [address] [place] [address] Historical Information: Introduction: Tracie Farah is a 21-year-old woman with >5 year hx of CRPS, R LE.S ocial & Psychiatric History: Tracie Farah lives in [place] in a shared apartment space. She has struggled wi th CRPS for at least 5 years; original injury to her foot was in 2001. In summer 2010 she h ad inpt pain tx at [facility] with limited [place] [facility] benefit. Recent flare; she arrived using crutches [...] She learned some pain management techniques at [facility], mainly DB and PMR, which she [...] chronic pain patients. Recommendations are as fo jenn. For the Pain Catastrophizing Scale, responses indicated [...] Travel is a barrier; she lives in [place] DSM-IV Diagnoses/Impressions: Tennga I: 1. 309.9 Unspecified Adjustment Reaction 2. 780.50 Sleep Disturbance Tennga II: Deferred. Tennga III: Patient Active Problem List Diagnoses CRPS (complex regional pain syndrome), lower limb Gait disturbance Muscle pain Adjustment reaction Tennga IV: CRPS pain, pain related debility;difficulty attending class, working; family stres s; stalker ex-bf Tennga V: Global Assessment of Functioning = 75 [...] me should questions arise. SHELIA FELDMAN, PHD Can Tester Licensed Clinical Psychologist [facility] [place] Department of Anesthesiology & Perioperative Medicine [facility] [address] [place] [address] documented in this enc ounter Plan of Treatment Not on filedocumented as of this encounter Visit Diagnoses + + | Diagnosis | + + | Unspecified adjustment reaction - Primary | + + documented in this encounter
--- OUTSIDE RECORDS SUMMARY | ~2019-08-12 | XMS | Encounter Summary ---
Demographics + + + | Address | [address] | | | [place] [address] | + + + | Home Phone [...] Team Providers + +------+ + | Care Ceramic Research Engineer Name | Role | Phone | + +------+ + | Allegra Gandhi | PCP | | + +------+ + Encounter Details +--------+ + + + + | Date | Type | Department | Care Team | Description | +--------+ + + + + | 03/01/ | Results | [facility] | Janak Riojas, | | | 2011 | Only | Pain Center at | MD [address] | | | | | [facility] | [facility] [id number] | | | | | [address] | [place], [place] | | | | | Mailcode: CH15P | [address] | | | | | [place] for [facility] | [phone] | | | | | and Martina, | | | | | | | | | | | | Floor [place], [place] | | | | | | [address] | | | | | | [phone] | | | +--------+ + + + [...]
--- OUTSIDE RECORDS SUMMARY | ~2019-08-12 | XMS | Encounter Summary ---
Demographics + + + | Address | [address] | | | [place] [address] | + + + | Home Phone [...] Team Providers + +------+ + | Care Japanese Professor Name | Role | Phone | [...] | | syndrome | [place] | [facility] | | | | | type 1 of | Rd | Rd [place], | | | | | left lower | [place], [place] | [place] | | | | | extremity | [address] | [address] | | | | | Procedures | Phone: | Phone: | | | | | REQUEST TO | [phone] | [phone] | | | | | SURGERY | Fax: | Fax: | | | | | SUPERVISOR EXTRUSION | [phone] | [phone] | +--------+---------+ + + + + Encounter Details +--------+---------+ + + + | Date | Type | Department | Care Team | Description | +--------+---------+ + + + | 12/22/ | Office | [facility] Comprehensive | Ilene Bright, | Complex regional | | 2019 | Visit | Pain Center at | DOCTOR NATUROPATHIC [address] | pain syndrome type 1 | | | | [facility] | Ave [place], [place] | of left lower | | | | [address] | [address] | extremity; S/P | | | | Mailcode: CH15P | [phone] | insertion of spinal | | | | [facility] | | cord stimulator | | | | and Healing, | | | | | | Building , | | | | | | Floor [place], [place] | | | | | | [address] | | | | | | [phone] | | | +--------+---------+ + + + [...] in this encounter Patient Instructions Patient Instructions Umm Collin - 12/22/2018 11:00 AM Shona, Thank you [...] few days to make an appointment to g et started with our recommendations. Below is a short summary of what we discussed today fo r your reference. - The [place] sales representative cash registers met with you and made adjustments to your stimulator. I spoke w ith the sales representative cash registers and she is happy with your progress [...] call this prescription into the [facility] in [place]. It was great to see you again, documented in this encounter Progress Notes Ilene Bright, TERESA - 12/22/2018 11:00 AM PSTFormatting of this note might be different fr om the original. [facility] Return Visit Date: 12/22/2018 Chief Complaint Patient presents with Low back pain Pain in left leg History of Present Illness: Tracie Farah is a 28 year old female, whose last appoi ntment at the [facility] was 12/07/2018 following her [...] order to tolerate her incision site pain. 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 Goes to [employer] with a light load. Has been working at [employer], can' t work on [employer]. Has roommates. Allergies Allergen Reactions Morphine Anaphylaxis [...] as directed by [facility]- 2 gallon bowel prep POLYETHYLENE [...] with nausea Abdominal pain Abdominal scar neuroma [facility] CLINICAL PROTOCOL PATIENT (CLNPRO) - Implanted Spinal [...] and summary of old medical records (source: [facility], [facility] Everywhere), as summarized in the body of [...] taking for her surgical incision. The [employer] sales representative cash registers visited the patient in order to make [...] PRN Disp# 10 Refill# 0 I, Collin Salomon am functioning as a scribe for TERESA Banuelos. I have reviewed and verified the above scribed note of my visit with this patient as record ed by Collin Salomon. Ilene Childs DNP, DOCTOR NATUROPATHIC-C [facility] [address] [place] [address] mmarcelo, Charline Torres MA - 12/22/2018 11:00 AM [...] fear of physical activity and social withdrawal docunaveed in this e ncounter Plan of Treatment Not on filedocumented as of this encounter Visit Diagnoses + + | Diagnosis | + + | Complex regional pain syndrome type 1 of left lower extremity | + + | S/P insertion of spinal cord stimulator | + + documented in this encounter
--- OUTSIDE RECORDS SUMMARY | ~2019-08-12 | XMS | Encounter Summary ---
Demographics + + + | Address | [address] | | | [place] [address] | + + + | Home Phone [...] Team Providers + +------+ + | Care Form Tamper Name | Role | Phone | + [...] + + | 10/07/ | Telephone | [facility] | Yosef Kenney MD | Wound infection | | 2018 | | Pain Center at | [address] | | | | | [facility] | [facility], | | | | | [address] | [place] [address] | | | | | Mailcode: CH15 | [phone] | | | | | [facility] | | | | | | and Healing, | | | | | | Building | | | | | | Floor [place], [place] | | | | | | [address] | | | | | | [phone] | | | +--------+ + + + [...]
--- OUTSIDE RECORDS SUMMARY | ~2019-08-12 | XMS | Encounter Summary ---
Demographics + + + | Address | [address] | | | [place] [address] | + + + | Home Phone [...] Team Providers + +------+ + | Care Transition Manager Name | Role | Phone | + +------+ + | Justo Vazquez MD | PCP | | + +------+ + Encounter Details +--------+ + + + + | Date | Type | Department | Care Team | Description | +--------+ + + + + | 05/18/ | Telephone | [facility] | Alex Sanchez, | | | 2019 | | Pain Center at | ,PhD [address] | | | | | [facility] | [facility] [address] | | | | | [address] | [place], [place] | | | | | Mailcode: CH15P | [address] | | | | | [place] for [facility] | [phone] | | | | | and Healing, | | | | | | | | | | | | Floor [place], [place] | | | | | | [address] | | | | | | [phone] | | | +--------+ + + + [...]
--- OUTSIDE RECORDS SUMMARY | ~2019-08-12 | XMS | Encounter Summary ---
Demographics + + + | Address | [address] | | | [place] [address] | + + + | Home Phone [...] Team Providers + +------+ + | Care Historian Research Assistant Name | Role | Phone | + +------+ + | Justo Vazquez MD | PCP | | + +------+ + Encounter Details +--------+ + + + + | Date | Type | Department | Care Team | Description | +--------+ + + + + | 09/25/ | Hospital | Radiology/Imaging | Aleta Rebollar MD [address] | | | 2018 | Encounter | Lab at [facility] [address] | [address] | | | | | [place] Mailcode: | [facility] [place] | | | | | [address] | [address] | | | | | Health and Healing, | [phone] | | | | | [facility] | | | | | | Floor [place], [place] | | | | | | [address] | | | | | | [phone] | | | +--------+ + + + [...] | X-RAY PAIN CLINIC | Routin | 09/25/2018 | Complex regional | Results for this | | FLUORO | e | 3:03 PM | pain syndrome type 1 | procedure are in the | | | | PST | of [...]
--- OUTSIDE RECORDS SUMMARY | ~2019-08-12 | XMS | Encounter Summary ---
Demographics + + + | Address | [address] | | | [place] [address] | + + + | Home Phone [...] Team Providers + +------+ + | Care Fleet Assistant Name | Role | Phone | [...] | Diagnoses | Beulah | Edu Pt Fiberglass Laminator | | | | Therapy | CRPS | Janak Martinez MD | [address] | | | | | (complex | [address] | | | | | regional | [address] | Mailcode: | | | | | pain | Mailstop | CH3P Center | | | | | syndrome), | [id number] | for Health | | | | | lower limb | [place], [place] | and Healing, | | | | | Gait | [address] | Building 1 | | | | | disturbance | Phone: | [place], [place] | | | | | Muscle pain | [phone] | [address] | | | | | Procedures | Fax: | Phone: | | | | | PHYSICAL | [phone] | [phone] | | | | | THERAPY | [...] | | | [place] | Ave [place], [place] | syndrome), lower | | | | [address] | [phone] | limb (Primary Dx) | | | | Mailcode: CH3P | | | | | | [facility] | Specialist, Edu | | | | | and Healing, | Exercise [address] | | | | | Building | [address] [place], | | | | | Floor [place], [place] | [place] [address] | | | | | [address] | | | | | | [phone] | | | +--------+---------+ + + + [...] might be different f rom the original. [id number] BRODY FARAH Date of : 1990 Start of care: 02/14/2012 Date of onset: 02/14/2012 Referring/Attending Practitioner: Janak Riojas MD . Primary/Referral Diagnosis/ICD-9: 355.71B CRPS (complex regional pain syndrome), lower limb Insurance: Payor: [facility] [employer] [facility] Plan: BCBS OUT OF STATE Product Type: PP O Service period from: 02/14/2012 to: 08/12/2012 Number visits used/authorized: 02/23 [facility] PHYSICAL THERAPY PROGRESS NOTE SUBJECTIVE: Age: [...] any change in their status. Guillermo Sanon [facility] Mailcode: Ch3p [address] [facility], [address] [place] [phone] documented in this encounter Plan of [...]
--- OUTSIDE RECORDS SUMMARY | ~2019-08-12 | XMS | Encounter Summary ---
Demographics + + + | Address | [address] | | | [place] [address] | + + + | Home Phone [...] Team Providers + +------+ + | Care Decorator Hand Name | Role | Phone | + +------+ + | Justo Vazquez MD | PCP | | + +------+ + Encounter Details +--------+ + + + + | Date | Type | Department | Care Team | Description | +--------+ + + + + | 03/11/ | Telephone | [facility] | Zeeshan Mahoney MD | | | 2019 | | Pain Center at | [address] | | | | | [facility] | [address] [place], | | | | | [address] | [place] [address] | | | | | Mailcode: CH15P | [phone] | | | | | [facility] | | | | | | and Healing, | | | | | | | | | | | | [place], [place] | | | | | | [address] | | | | | | [phone] | | | +--------+ + + + [...]
--- OUTSIDE RECORDS SUMMARY | ~2019-08-12 | XMS | Encounter Summary ---
Demographics + + + | Address | [address] | | | [place] [address] | + + + | Home Phone [...] Team Providers + +------+ + | Care Hebrew Professor Name | Role | Phone | + +------+ + | Justo aVzquez MD | PCP | | + +------+ + Encounter Details +--------+ + + + + | Date | Type | Department | Care Team | Description | +--------+ + + + + | 01/02/ | Telephone | [facility] | Ilene Bright, | | | 2019 | | Pain Center at | SAMPLE ROOM SUPERVISOR [address] | | | | | [facility] | Ave [place], [place] | | | | | [address] | [address] | | | | | Mailcode: CH15P | [phone] | | | | | [facility] | | | | | | and Healing, | | | | | | | | | | | | [place], [place] | | | | | | [address] | | | | | | [phone] | | | +--------+ + + + [...]
--- OUTSIDE RECORDS SUMMARY | ~2019-08-12 | XMS | Encounter Summary ---
Demographics + + + | Address | [address] | | | [place] [address] | + + + | Home Phone [...] Team Providers + +------+ + | Care Architecture Technician Name | Role | Phone | [...] ogy | | Ava Torres, | [address] | | | | | Constipation | MD [address] | | | | | , | [address] | Mailcode: | | | | | unspecified | Giuliana Maldonado | OC2L Center | | | | | constipation | [facility] [place] | for Health | | | | | type | [address] | and Healing, | | | | | Procedures | | Building 2 | | | | | CONSULT TO | | [place], [place] | | | | | GI PROCEDURE | | [address] | | | | | UNIT: | | Phone: | | | | | ANORECTAL | | [phone] | | | | | MANOMETRY | | Fax: | | | | | DE ANAL | | [phone] | | | | | PRESSURE | | | | | | | RECORD | | | +--------+--------+ + + + + Encounter Details +--------+ + + + + | Date | Type | Department | Care Team | Description | +--------+ + + + + | 09/14/ | Hospital | Endoscopic | Nurse, Gip [address] | | | 2016 | Encounter | Procedural Unit at | [facility] | | | | | [facility] | Road [place], [place] | | | | | [address] | [address] | | | | | Mailcode: OC2L | | | | | | [facility] | | | | | | and Healing, | | | | | | Building 2 | | | | | | [place], [place] | | | | | | [address] | | | | | | [phone] | | | +--------+ + + + [...]
--- OUTSIDE RECORDS SUMMARY | ~2019-08-12 | XMS | Encounter Summary ---
Demographics + + + | Address | [address] | | | [place] [address] | + + + | Home Phone [...] Team Providers + +------+ + | Care Loft Worker Apprentice Name | Role | Phone | [...]
--- OUTSIDE RECORDS SUMMARY | ~2019-08-12 | XMS | Encounter Summary ---
Demographics + + + | Address | [address] | | | [place] [address] | + + + | Home Phone [...] Team Providers + +------+ + | Care Seismic Engineer Name | Role | Phone | [...] Pain Medicine | Diagnoses | Chasity, | Surg Tech Chh1 | | | | / Pain | Abdominal | MD Kenny | [address] | | | | Management | pain, | [address] | Ave | | | | | unspecified | [facility] | Mailcode: | | | | | location | Rd | CH15P Center | | | | | Procedures | [place], [place] | for Health | | | | | CONSULT TO | [address] | and Healing, | | | | | PAIN | Phone: | Building | | | | | MANAGEMENT | [phone] | 1,15th Floor | | | | | | Fax: | [place], [place] | | | | | | [phone] | [address] | | | | | | | Phone: | | | | | | | [phone] | | | | | | | Fax: | | | | | | | [phone] | +--------+--------+ + + + + Encounter Details +--------+---------+ + + + | Date | Type | Department | Care Team | Description | +--------+---------+ + + + | 07/11/ | Office | [facility] | Ilene Bright, | Pain of upper | | 2017 | Visit | Pain Center at | ARCHITECTURAL DRAFTSPERSON [address] | abdomen (Primary | | | | [place] | Ave [place], [place] | Dx); Intractable | | | | [address] | [address] | cyclical vomiting | | | | Mailcode: CH15P | [phone] | with nausea; | | | | [place] for [facility] | | Irritable bowel | | | | and Healing, | | syndrome with | | | | Building | | constipation; | | | | Floor [place], [place] | | Complex regional | | | | [address] | | pain syndrome type 1 | | | | [phone] | | of left lower | | [...] and determine next steps. Ilene Childs DNP, ARCHITECTURAL DRAFTSPERSON-C Adult Pain Service /[facility] [address] [place] [address] documented in this encounter Progress Notes Ilene Bright FNP - 07/11/2017 1:35 PM PDTFormatting of this note might be different fr om the original. [facility] Return Visit Date: 07/11/2017 Chief Complaint Patient presents with Abdominal pain Back pain History of Present Illness: Tracie Farah is a 27 year old female, whose last appoi ntment at the [facility] was April 25, 2017, [...] the last appointment. Since our last appointment rTacie has continued to have flares and has [...] is in the process of arranging [facility]ie. She has also changed [...] incident of flaring after 2 bites of [employer] pizza. She has not trie d an [...] dose. She mentions that her primary care provi paige is planning to increasing her dose. She [...] her abdominal pain an d associated symptoms. [facility] QUESTIONNAIRE BRIEF PAIN 07/11/2017 Please rate [...] has interfered with your sleep : 5 YARD RIGGER Questionnaire Follow-up Patient 07/11/2017 Please describe the [...] Hemroidectomy Trial spinal cord stimulator leads 08/02/2012 [facility], Surgeon: Janak Riojas MD Cholecystectomy [...] History Social History Narrative Single. Goes to [employer] with a light load. Has been working at [employer], can' t work on [employer]. Has roommates. Allergies Allergen Reactions Morphine Anaphylaxis [...] by physician. Concentration is 150mg/mL. Compounded by [facility] ( [phone]) LAMOTRIGINE 200 MG TABLET Take 1 tablet [...] GRAM-5.86 GRAM SOLUTION Take as directed by [facility] Digestive Health- 2 gallon bowel prep POLYETHYLENE [...] and summary of old medical records (source: [employer]), as summarized in the body of the [...] I, Shantel Salinas, am functioning as a medical detail representative for Ilene Childs DNP, TERESA-C I have reviewed and verified the above scribed note of my visit with this patient as record ed by Shantel Salinas. Ilene Childs DNP, ARCHITECTURAL DRAFTSPERSON-C [facility] [address] [place] [id number] Addendum: I paged Dr. Les Gaspar. He was out of the clinic, I spoke with the covering provider and dianelys Hodges's request for food allergy testing. Since Tracie thinks her pain and vomiting may b e triggered by gluten, covering provided ordered appropriate workup, which I communicated to Tracie and the the lab in [place], [place]. She will followup with me and GI once these results are available. Ilene Childs DNP, ARCHITECTURAL DRAFTSPERSON-C [facility] [address] [place] [address] documented in this e ncounter Plan of [...]
--- OUTSIDE RECORDS SUMMARY | ~2019-08-12 | XMS | Encounter Summary ---
Demographics + + + | Address | [address] | | | [place] [address] | + + + | Home Phone [...] Team Providers + +------+ + | Care Tilt Wall Supervisor Name | Role | Phone | [...] | Diagnoses | Beulah | Edu Pt Legal Process Specialist | | | | Therapy | CRPS | Janak Martinez MD | [address] | | | | | (complex | [address] | | | | | regional | [address] | Mailcode: | | | | | pain | Mailstop | [facility] | | | | | syndrome), | [phone] | for Health | | | | | lower limb | [place], [place] | and Healing, | | | | | Gait | [address] | Building 1 | | | | | disturbance | Phone: | [place], [place] | | | | | Muscle pain | [phone] | [address] | | | | | Procedures | Fax: | Phone: | | | | | PHYSICAL | [phone] | [phone] | | | | | THERAPY | [...] | | | [place] | Ave [place], [place] | syndrome), lower | | | | [address] | [phone] | limb (Primary Dx) | | | | Mailcode: CH3[facility] | | | | | | [facility] | | | | | | and Healing, | | | | | | Building [address] | | | | | | Floor [place], [place] | | | | | | [address] | | | | | | [phone] | | | +--------+---------+ + + + [...] might be different f rom the original. [id number] BRODY FARAH Date of : 1990 Start of care: 02/14/2012 Date of onset: 02/14/2012 Referring/Attending Practitioner: Janak Riojas MD . Primary/Referral Diagnosis/ICD-9: 355.71B CRPS (complex regional pain syndrome), lower limb Insurance: Payor: [facility] Plan: BCBS OUT OF STATE Product Type: PP O Service period from: 02/14/2012 to: 08/12/2012 Number visits used/authorized: 01/23 [facility] PHYSICAL THERAPY PROGRESS NOTE SUBJECTIVE: Age: 21 y.o. Sex: female Chief complaint: No chief complaint on file. Current: pt has been doing her neck exercises. She is not shaking as much. Her foot hurts t bruno. Now she is working at [employer] 2-3 hours per week, and spends a [...] in their status. Guillermo Sanon MSPT [facility] Outpatient Rehabilitation Services Mailcode: Ch3p [address] [facility], [address] [place] [phone] documented in this encounter Plan of Treatment Not on filedocumented as of this encounter Procedures + +--------+ + + + | Procedure Name | Priori | Date/Time | Associated Diagnosis | Comments | | | ty | | | | + +--------+ + + + | [place] [facility] | Routin | 05/11/2012 | CRPS [...]
--- OUTSIDE RECORDS SUMMARY | ~2019-08-12 | XMS | Encounter Summary ---
Demographics + + + | Address | [address] | | | [place] [address] | + + + | Home Phone [...] Team Providers + +------+ + | Care Cold Roll Inspector Name | Role | Phone | + +------+ + | Justo Vazquez MD | PCP | | + +------+ + Encounter Details +--------+ + + + + | Date | Type | Department | Care Team | Description | +--------+ + + + + | 10/03/ | Telephone | [facility] | Ilene Bright, | | | 2017 | | Pain Center at | MANAGER INTERMEDIATE [address] | | | | | [facility] | Ave [place], [place] | | | | | [address] | [address] | | | | | Mailcode: CH15P | [phone] | | | | | [place] for [facility] | | | | | | and Healing, | | | | | | | | | | | | [place], [place] | | | | | | [address] | | | | | | [phone] | | | +--------+ + + + [...]
--- OUTSIDE RECORDS SUMMARY | ~2019-08-12 | XMS | Encounter Summary ---
Demographics + + + | Address | [address] | | | [place] [address] | + + + | Home Phone [...] Providers + +------+ + | Care Electric Sign Wirer Name | Role | Phone | + +------+ + | Justo Vazquez MD | PCP | | + +------+ + Encounter Details +--------+ + + + + | Date | Type | Department | Care Team | Description | +--------+ + + + + | 01/26/ | Document-Sc | Health Information | Unknown . | | | 2018 | anned | Services [address] | | | | | | [address] | | | | | | Mailcode: OP17A | | | | | | [facility] | | | | | | [place], [place] | | | | | | [address] | | | | | | [phone] | | | +--------+ + + + [...]
--- OUTSIDE RECORDS SUMMARY | ~2019-08-12 | XMS | Encounter Summary ---
Demographics + + + | Address | [address] | | | [place] [address] | + + + | Home Phone [...] Team Providers + +------+ + | Care Professional Development Director Name | Role | Phone | + +------+ + | Allegra Ganhdi | PCP | | + +------+ + [...] Oliveira | | 2011 | IP | [address] | | House - Approved | | | | [place], | | | | | | [place] [address] | | | +--------+ + + + [...]
--- OUTSIDE RECORDS SUMMARY | ~2019-08-12 | XMS | Encounter Summary ---
Demographics + + + | Address | [address] | | | [place] [address] | + + + | Home Phone [...] Team Providers + +------+ + | Care Cover Stitch Machine Operator Name | Role | Phone [...] | | | | regional | [address] | Mailcode: | | | | | pain | Mailstop | [facility] | | | | | syndrome), | [phone] | for Health | | | | | lower limb | [place], [place] | and Healing, | | | | | Gait | [address] | Building 1, | | | | | disturbance | Phone: | 15th Floor | | | | | Muscle pain | [phone] | [place], [place] | | | | | Procedures | Fax: | [address] | | | | | CONSULT TO | [phone] | Phone: | | | | | PAIN CENTER | | [phone] | | | | | | | Fax: | | | | | | | [phone] | +--------+--------+ + + + + Encounter Details +--------+---------+ + + + | Date | Type | Department | Care Team | Description | +--------+---------+ + + + | 02/28/ | Office | Pain Center at [facility] | Shelia Feldman, PhD | Unspecified | | 2011 | Visit | 15th Floor [address] | | adjustment reaction | | | | [address] Mailcode: | | (Primary Dx); Sleep | | | | [facility] | | disturbance, | | | | Health and Healing, | | unspecified | | | | Building | | | | | | Floor [place], [place] | | | | | | [address] | | | | | | [phone] | | | +--------+---------+ + + + [...] [facility] Name: Tracie Farah MR#: [id number] Date of : 1990 Date: February 29, [...] & Psychiatric History: Tracie Farah lives in [place] in a shared apartment space. She has struggled wi th CRPS for at least 5 years; original injury to her foot was in 2001. In summer 2010 she h ad inpt pain tx at [facility] with limited mcc benefit. Recent flare; she arrived using crutches [...] She learned some pain management techniques at [facility], mainly DB and PMR, which she [...] Travel is a barrier; she lives in [place] DSM-IV Diagnoses/Impressions: [place] I: 1. 309.9 Unspecified Adjustment Reaction 2. 780.50 Sleep Disturbance [place] II: Deferred. [place] III: Patient Active Problem List Diagnoses CRPS (complex regional pain syndrome), lower limb Gait disturbance Muscle pain Adjustment reaction [place] IV: CRPS pain, pain related debility;difficulty attending class, working; family stres s; stalker ex-bf [place] V: Global Assessment of Functioning = 75 [...] ex-bf. F/u will focus on improved boun reinaldo. 4. Will encourage improved boundaries with parents and clear separation between parents dur ing medical appts. 5. I provided her with my contact card; she is aware she may call/email me should questions arise. SHELIA FELDMAN, PHD Multicultural Internship Licensed Clinical Psychologist [facility] Department of Anesthesiology & Perioperative Medicine [facility] Pain Center [address] [place] [address] documented in this enc ounter Plan of Treatment Not on filedocumented as of this encounter Visit Diagnoses + + | Diagnosis | + + | Unspecified adjustment reaction - Primary | + + | Sleep disturbance, unspecified | + + documented in this encounter
--- OUTSIDE RECORDS SUMMARY | ~2019-08-12 | XMS | Encounter Summary ---
Demographics + + + | Address | [address] | | | [place] [address] | + + + | Home Phone [...] Team Providers + +------+ + | Care Assembly Riveter Name | Role | Phone | + +------+ + | Justo Vazquez MD | PCP | | + +------+ + Reason for Visit + + + | Reason | Comments | + + + | Medication | clarify sig | + + + Encounter Details +--------+ + + + + | Date | Type | Department | Care Team | Description | +--------+ + + + + | 02/01/ | Telephone | [facility] | Alex Sanchez, | Medication (clarify | | 2018 | | Pain Center at | ,PhD [address] | sig) | | | | [facility] | [facility] | | | | | [address] | [place], [place] | | | | | Mailcode: CH15P | [phone] | | | | | [facility] | [phone] | | | | | and [place]ina, | | | | | | Building | | | | | | [place], [place] | | | | | | [address] | | | | | | [phone] | | | +--------+ + + + [...]
--- OUTSIDE RECORDS SUMMARY | ~2019-08-12 | XMS | Encounter Summary ---
Demographics + + + | Address | [address] | | | [place] [address] | + + + | Home Phone [...] Team Providers + +------+ + | Care Rough Rounder Machine Name | Role | Phone | + +------+ + | Justo Vazqeuz MD | PCP | | + +------+ [...] / | Diagnoses | St Mak, | [place], | | | | Pain | Complex | [place], MONOGRAM MAKER | Catriona M, | | | | Management | regional | [address] | [address] | | | | | pain | [address] | [address] | | | | | syndrome | [place], [place] | [place], [place] | | | | | type 1 of | [address] | [address] Phone: | | | | | left lower | Phone: | [phone] | | | | | extremity | [phone] | Fax: | | | | | Intractable | Fax: | [phone] | | | | | cyclical | [phone] | | | | | | vomiting [...] | | | | | | | DE | | | | | | | PSYCHIATRIC | | | | | | | DIAGNOSTIC | | | | | | | EVAL, NO MED | | | | | | | SVCS DE | | | | | | | PSYCH TSTNG | | | | | | | PSYCH/PHYS | | | | | | | DE | | | | | | | PSYCHOTHERAP | | | | | | | Y, 45 MIN | | | +--------+---------+ + + + + Encounter Details +--------+---------+ + + + | Date | Type | Department | Care Team | Description | +--------+---------+ + + + | 10/11/ | Office | Pain Center at [facility] | Jamel Bravo, | Adjustment disorder | | 2017 | Visit | 15th Floor [address] | PhD [address] | with mixed anxiety | | | | [address] Mailcode: | Ave [place], [place] | and depressed mood | | | | [facility] Center for | [address] | (Primary Dx); | | | | Health and Healing, | [phone] | Complex regional | | | | Building | | pain syndrome type 1 | | | | Floor [place], [place] | | of left lower | | | | [address] | | extremity; Abdominal | | | | [phone] | | pain, unspecified | | | [...] Jamel Bravo, PhD - 10/11/2017 10:50 AM [facility] Initial Psychologica l Evaluation IDENTIFYING INFORMATION: Tracie Farah is a 27 y.o. female Date of : 1990 Consulting Psychologist: JAMEL BRAVO PHD Consultation Date: 10/11/2017 Referring Provider: Ilene Bright Identifying Information: Tracei Farah is a 27 y.o. female who lives with her paren ts in [place], [place]. The patient was referred for pain [...] by physician. Concentration is 150mg/mL. Compounded by [employer] ([phone]), Disp: , Rfl: 5 lamoTRIgine 200 mg [...] oral recon soln, Take as directed by [facility]- 2 gallon bowel prep, Disp: [...] e. 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 For enjoyment the patient watches TV, reads, [...] time I spent was approximately 50 minutes qsja-fx-rozg with the patient and approxima tely 1 hour 40 minutes of awa-xaqk-ac-face testing, interpreting and synthesizing results. Jamel Bravo, PhD PAIN CENTER AT [facility] 15TH FLO[address] [facility] Mail Code: [place] [address] documented in this en counter [...]
--- OUTSIDE RECORDS SUMMARY | ~2019-08-12 | XMS | Encounter Summary ---
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
--- OUTSIDE RECORDS SUMMARY | ~2019-08-12 | XMS | Encounter Summary ---
Demographics + + + | Address | [address] | | | [place] [address] | + + + | Home Phone [...] Team Providers + +------+ + | Care Shear Tender Name | Role | Phone | [...] Digestive Health | Ava Carbajal | Question (Breonnarachelle | | 2017 | | Center at [facility] [address] | MD Melissa | Marker instructions) | | | | [address] | | | | | | Mailcode: Center | | | | | | for Health and | | | | | | [facility], [place] [address] | | | | | | [place], [place] | | | | | | [address] | | | | | | [phone] | | | +--------+ + + + [...]
--- OUTSIDE RECORDS SUMMARY | ~2019-08-12 | XMS | Encounter Summary ---
Demographics + + + | Address | [address] | | | [place] [address] | + + + | Home Phone [...] Team Providers + +------+ + | Care Ict Managers Name | Role | Phone | + +------+ + | Allegra Chaudhary | PCP | Unavailable | + +------+ + Reason for Visit + + + | Reason | Comments | + + + | Bowel Clean-out | | + + + Encounter Details +--------+ + + + + | Date | Type | Department | Care Team | Description | +--------+ + + + + | 08/12/ | Telephone | Digestive Health | Ava Carbajal | Bowel Clean-out | | 2015 | | Center at [facility] [address] | MD Melissa | | | | | [address] | | | | | | Mailcode: Center | | | | | | for Health and | | | | | | [facility] 2 | | | | | | [place], [place] | | | | | | [address] | | | | | | [phone] | | | +--------+ + + + [...]
--- OUTSIDE RECORDS SUMMARY | ~2019-08-12 | XMS | Encounter Summary ---
Demographics + + + | Address | [address] | | | [place] [address] | + + + | Home Phone [...] Team Providers + +------+ + | Care Sanitation Truck Cleaner Name | Role | Phone | [...] | | syndrome | [place] | [facility] | | | | | type 1 of | Rd | Rd [place], | | | | | left lower | [place], [place] | [place] | | | | | extremity | [address] | [address] | | | | | Procedures | Phone: | Phone: | | | | | REQUEST TO | [phone] | [phone] | | | | | SURGERY | Fax: | Fax: | | | | | TEST ENGINEERING INTERN | [phone] | [phone] | +--------+---------+ + + + + Encounter Details +--------+---------+ + + + | Date | Type | Department | Care Team | Description | +--------+---------+ + + + | 12/22/ | Office | [facility] Comprehensive | Ilene Bright, | Complex regional | | 2019 | Visit | Pain Center at | BRAILLE TRANSLATOR [address] | pain syndrome type 1 | | | | [facility] | Ave [place], [place] | of left lower | | | | [address] | [address] | extremity; S/P | | | | Mailcode: CH15P | [phone] | insertion of spinal | | | | [facility] | | cord stimulator | | | | and Healing, | | | | | | Building , | | | | | | Floor [place], [place] | | | | | | [address] | | | | | | [phone] | | | +--------+---------+ + + + [...] fo r your reference. - The [place] circulation sales representative met with you and made adjustments to your stimulator. I spoke w ith the circulation sales representative and she is happy with your [...] might be different fr om the original. [facility] Pain Center Return Visit Date: 12/22/2018 Chief Complaint Patient presents with Low back pain Pain in left leg History of Present Illness: Tracie Farah is a 28 year old female, whose last appoi ntment at the [facility] was 12/07/2018 following [...] order to tolerate her incision site pain. 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 Goes to [employer] with a light load. Has been working at [email or web address], can' t work on [employer]. Has roommates. Allergies Allergen Reactions Morphine Anaphylaxis [...] GRAM-5.86 GRAM SOLUTION Take as directed by [facility] Digestive Health- 2 gallon bowel prep [...] with nausea Abdominal pain Abdominal scar neuroma [facility] CLINICAL PROTOCOL PATIENT (CLNPRO) - Implanted [...] and summary of old medical records (source: [facility], [facility] Everywhere), as summarized in the body of [...] taking for her surgical incision. The [facility] circulation sales representative visited the patient in order to [...] ed by Collin Salomon. Ilene Childs DNP, BRAILLE TRANSLATOR-C Adult Pain [facility] /[facility] [address] [place] [address] mmarcelo, Charline Torres MA - 12/22/2018 11:00 [...]
--- OUTSIDE RECORDS SUMMARY | ~2019-08-12 | XMS | Encounter Summary ---
Demographics + + + | Address | [address] | | | [place] [address] | + + + | Home Phone [...] Team Providers + +------+ + | Care Pipe Smoker Machine Operator Name | Role | Phone [...] | | | sympathetic | [place] [address]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 | FAMILY | Mailstop | | | | | of lower | MEDICINE P | [address] | | | | | limb | [address] | [place], [place] | | | | | | [place], | [address] | | | | | | [place] [address] | Phone: | | | | | | Phone: | [phone] | | | | | | [phone] | Fax: | | | | | | Fax: | [phone] | | | | | | [phone] | | +--------+--------+ + + + + Encounter Details +--------+---------+ + + + | Date | Type | Department | Care Team | Description | +--------+---------+ + + + | 09/04/ | Office | [facility] | Dale Cantu, | CRPS (complex | | 2011 | Visit | Pain Center at | [address] [facility] | regional pain | | | | [facility] | [facility] [address] | syndrome), lower | | | | [address] | [place], [place] | limb; Gait | | | | Mailcode: CH15P | [address] | disturbance; Sleep | | | | [facility] | [phone] | disturbance, | | | | and Healing, | | unspecified; | | | | | | Adjustment reaction | | | | Floor [place], [place] | | | | | | [address] | | | | | | [phone] | | | +--------+---------+ + + + [...] CRPS patients (Loretta Rousseau, et al. Katrina [employer] Teacher Med. 2010;152:152-158) . Bisphosphonate trial. Typically, I [...] Cantu MD - 09/04/2012 7:45 AM PDT [facility] Return Visit with Dr. [...] and a pain drawing which I reviewed. [facility] Brief Pain Inventory: (ten= worst possible pain [...] cord stimulator trial last month with [employer] equipment wit h no benefit to her [...] cord stimulator leads 08/02/2012 [facility], Surgeon: Dale Cantu MD Family History Problem [...] The Review of Systems obtained by the [facility] was reviewed. Additional Review of Systems commen [...] of Pain: 13(1):17-21, 2008). DALE CANTU MD Talent Program Manager, [facility] Vine Pruner, Pain Medicine Professor, Anesthesiology & Perioperative Medicine [...]
--- OUTSIDE RECORDS SUMMARY | ~2019-08-12 | XMS | Encounter Summary ---
Demographics + + + | Address | [address] | | | [place] [address] | + + + | Home Phone [...] Team Providers + +------+ + | Care Drapery Rod Assembler Name | Role | Phone | [...] + + | 09/14/ | Telephone | [facility] Comprehensive | Alex Sanchez, | Education procedure | | 2018 | | Pain Center at | ,PhD [address] | (preprocedure | | | | [facility] | [facility] | education [facility]) | | | | [address] | [place], [place] | | | | | Mailcode: CH15P | [address] | | | | | [facility] | [phone] | | | | | and [address], | | | | | | | | | | | | Floor [place], [place] | | | | | | [address] | | | | | | [phone] | | | +--------+ + + + [...]
--- OUTSIDE RECORDS SUMMARY | ~2019-08-12 | XMS | Encounter Summary ---
Demographics + + + | Address | [address] | | | [place] [address] | + + + | Home Phone [...] Providers + +------+ + | Care Investment Banking Analyst Name | Role | Phone | + +------+ + | Allgera Gandhi | PCP | | + +------+ [...] CRPS | Janak Martinez MD | [address] | | | | Management | (complex | [address] | | | | | regional | [address] | Mailcode: | | | | | pain | Mailstop | [facility] Center | | | | | syndrome), | [id number] | for Health | | | | | lower limb | [place], [place] | and Healing, | | | | | Gait | [address] | Building 1, | | | | | disturbance | Phone: | 15th Floor | | | | | Muscle pain | [phone] | [place], [place] | | | | | Procedures | Fax: | [address] | | | | | CONSULT TO | [phone] | Phone: | | | | | PAIN CENTER | | [phone] | | | | | | | Fax: | | | | | | | [phone] | +--------+--------+ + + + + Encounter Details +--------+---------+ + + + | Date | Type | Department | Care Team | Description | +--------+---------+ + + + | 03/20/ | Office | Pain Center at [facility] | Shelia Feldman, PhD | Unspecified | | 2011 | Visit | 15th Floor [address] | | adjustment reaction | | | | [address] Mailcode: | | (Primary Dx) | | | | [facility] | | | | | | Health and Healing, | | | | | | | | | | | | Floor [place], [place] | | | | | | [address] | | | | | | [phone] | | | +--------+---------+ + + + [...] [facility] Name: Tracie Farah MR#: [id number] Date of : 1990 Date: March 20, 2012 Attending Psychologist: SHELIA FELDMAN, PHD CPT: 63493 Duration: 60min Psych: 309.0 Pain: 355.71 Tracie arrived on time for today's appointment, casually dressed and neatly groomed. Affect was appropriate, mood normothymic. She drove herself today and used crutches. She stated t hat she was doing "better", mainly because she has returned to work at [employer] She is wo rking about 2 hour [...] discretion, not currently planned. SHELIA FELDMAN, PHD Manager Equipment Licensed Clinical Psychologist [facility] Department of Anesthesiology & Perioperative Medicine [facility] [address] [place] [address] Historical Information: Introduction: Tracie Farah is a 21-year-old woman with >5 year hx of CRPS, R LE.S ocial & Psychiatric History: Tracie Farah lives in [place] in a shared apartment space. She has struggled wi th CRPS for at least 5 years; original injury to her foot was in 2001. In summer 2010 she h ad inpt pain tx at [facility] with limited usp benefit. Recent flare; she arrived using crutches [...] She learned some pain management techniques at [facility], mainly DB and PMR, which she [...] Travel is a barrier; she lives in [place] DSM-IV Diagnoses/Impressions: Ancram I: 1. 309.9 Unspecified Adjustment Reaction 2. 780.50 Sleep Disturbance Ancram II: Deferred. Ancram III: Patient Active Problem List Diagnoses CRPS (complex regional pain syndrome), lower limb Gait disturbance Muscle pain Adjustment reaction Ancram IV: CRPS pain, pain related debility;difficulty attending class, working; family stres s; stalker ex-bf Ancram V: Global Assessment of Functioning = 75 [...] me should questions arise. SHELIA FELDMAN, PHD Manager Equipment Licensed Clinical Psychologist [facility] Department of Anesthesiology & Perioperative Medicine [facility] [address] [place] [address] documented in this enc ounter Plan of Treatment Not on filedocumented as of this encounter Visit Diagnoses + + | Diagnosis | + + | Unspecified adjustment reaction - Primary | + + documented in this encounter
--- OUTSIDE RECORDS SUMMARY | ~2019-08-12 | XMS | Encounter Summary ---
Demographics + + + | Address | [address] | | | [place] [address] | + + + | Home Phone [...] Team Providers + +------+ + | Care Wig Comber Name | Role | Phone | + [...] Rd | | | | | | [place], [place] | | | | | | [address] | | | +--------+ + + + [...]
--- OUTSIDE RECORDS SUMMARY | ~2019-08-12 | XMS | Encounter Summary ---
Demographics + + + | Address | [address] | | | [place] [address] | + + + | Home Phone [...] Team Providers + +------+ + | Care Magnetic Tape Typewriter Operator Name | Role | Phone | [...] | Complex | Alex Alba, | [facility] [address] | | | | | regional | ,PhD [address] | | | | | pain | [address] | [address] | | | | | syndrome | [address] | Mailcode: | | | | | type 1 of | Rd | [address] | | | | | left lower | [place], [place] | [address] | | | | | extremity | [address] | [place], [place] | | | | | Muscle pain | Phone: | [address] | | | | | Procedures | [phone] | Phone: | | | | | NM BONE | Fax: | [phone] | | | | | &/OR JOINT | [phone] | Fax: | | | | | IMAGING | | [phone] | | | | | TOMOGRAPHIC | [...] | | | | | | | NH BONE | | | | | | | IMAGING, | | | | | | | LIMITED AREA | | | | | | | NH BONE | | | | | | [...] | | 2018 | Encounter | at [facility] [address] | ,PhD [address] | | | | | [address] | [address] | | | | | Mailcode: [address] | [place], [place] | | | | | [address] | [address] | | | | | [place], [place] | [phone] | | | | | [address] | | | | | | [phone] | | | +--------+ + + + [...]
--- OUTSIDE RECORDS SUMMARY | ~2019-08-12 | XMS | Encounter Summary ---
Demographics + + + | Address | [address] | | | [place] [address] | + + + | Home Phone [...] Team Providers + +------+ + | Care Compressed Air Pile Driver Operator Name | Role | Phone | + +------+ + | Justo Vazquez MD | PCP | | + +------+ + Encounter Details +--------+ + + + + | Date | Type | Department | Care Team | Description | +--------+ + + + + | 05/12/ | MyChart | Pain Center at [facility] | Ewa Melchor, | RE: Schedule change | | 2017 | Encounter | 15th Floor [address] | COMPRESS TRUCKER [address] | | | | | [address] Mailcode: | [address] | | | | | [facility] Center for | [place] [address] | | | | | Health and Healing, | [phone] | | | | | | | | | | | Floor [place], [place] | | | | | | [address] | | | | | | [phone] | | | +--------+ + + + [...]
--- OUTSIDE RECORDS SUMMARY | ~2019-08-12 | XMS | Encounter Summary ---
Demographics + + + | Address | [address] | | | [place] [address] | + + + | Home Phone [...] Providers + +------+ + | Care Plate Mill Hand Name | Role | Phone | [...] | | | | regional | ,PhD [address] | | | | | | pain | [address] | | | | | | syndrome | [address] | | | | | | type 1 of | Rd | | | | | | left lower | [place], [place] | | | | | | extremity | [address] | | | | | | Procedures | Phone: | | | | | | PHYSICAL | [phone] | | | | | | THERAPY | Fax: | | | | | | REFERRAL | [phone] | | +--------+--------+ + + + + Encounter Details +--------+ + + + + | Date | Type | Department | Care Team | Description | +--------+ + + + + | 01/22/ | Telephone | [facility] | Alex Sanchez, | | | 2018 | | Pain Center at | ,PhD [address] | | | | | [facility] | [facility] | | | | | [address] | [place], [place] | | | | | Mailcode: CH15P | [address] | | | | | [facility] | [phone] | | | | | and Healing, | | | | | | | | | | | | [place], [place] | | | | | | [address] | | | | | | [phone] | | | +--------+ + + + [...]
--- OUTSIDE RECORDS SUMMARY | ~2019-08-12 | XMS | Encounter Summary ---
Demographics + + + | Address | [address] | | | [place] [address] | + + + | Home Phone [...] Providers + +------+ + | Care Technical Marketing Engineer Name | Role | Phone | [...] | Complex | Alex Alba, | [facility] [address] | | | | | regional | ,PhD [address] | [address] | | | | | pain | [address] | [address] | | | | | syndrome | [address] | Mailcode: | | | | | type 1 of | Rd | [address] | | | | | left lower | [place], [place] | [address] | | | | | extremity | [address] | [place], [place] | | | | | Muscle pain | Phone: | [address] | | | | | Procedures | [phone] | Phone: | | | | | NM BONE | Fax: | [phone] | | | | | &/OR JOINT | [phone] | Fax: | | | | | IMAGING | | [phone] | | | | | TOMOGRAPHIC | [...] | | | | | | | SD BONE | | | | | | | IMAGING, | | | | | | | LIMITED AREA | | | | | | | SD BONE | | | | | | [...] | | 2018 | Encounter | at [facility] [address] | ,PhD [address] | | | | | [address] | [address] | | | | | Mailcode: [address] | [place], [place] | | | | | [address] | [address] | | | | | [place], [place] | [phone] | | | | | [address] | | | | | | [phone] | | | +--------+ + + + [...]
--- OUTSIDE RECORDS SUMMARY | ~2019-08-12 | XMS | Encounter Summary ---
Demographics + + + | Address | [address] | | | [place] [address] | + + + | Home Phone [...] Providers + +------+ + | Care Manager Technical Support Name | Role | Phone | + [...] Oliveira | | 2011 | IP | [address] | | House - Approved | | | | [address] [place], | | | | | | [place] [address] | | | +--------+ + + + [...]
--- OUTSIDE RECORDS SUMMARY | ~2019-08-12 | XMS | Encounter Summary ---
Demographics + + + | Address | [address] | | | [place] [address] | + + + | Home Phone [...] Team Providers + +------+ + | Care Carousel Attendant Name | Role | Phone | [...] | Complex | Alex Alba, | Alex Abla, | | | | | regional | ,PhD [address] | ,[address]D [address] | | | | | pain | [address] | [address] | | | | | syndrome | [address] | [facility] | | | | | type 1 of | Rd | Rd [place], | | | | | left lower | [place], [place] | [place] | | | | | extremity | [address] | [address] | | | | | Procedures | Phone: | Phone: | | | | | REQUEST TO | [phone] | [phone] | | | | | SURGERY | Fax: | Fax: | | | | | CUSTOMER EXPERIENCE ANALYST | [phone] | [phone] | +--------+---------+ + + + + Encounter Details +--------+---------+ + + + | Date | Type | Department | Care Team | Description | +--------+---------+ + + + | 12/07/ | Office | [facility] Comprehensive | Eulogio, | Complex regional | | 2019 | Visit | Pain Center at | MD Irene [address] | pain syndrome type 1 | | | | [facility] | [address] [facility], | of left lower | | | | [address] | [place] [address] | extremity (Primary | | | | Mailcode: CH15P | [phone] | Dx); S/P insertion | | | | [facility] | | of spinal cord | | | | and Healing, | | stimulator | | | | Building , | | | | | | Floor [place], [place] | | | | | | [address] | | | | | | [phone] | | | +--------+---------+ + + + [...] Irene Krishnan MD at 12/07/2018 9:50 AM Estefany Ricks MA - 12/07/2018 9:10 AM PSTCMA History: [...] Lujan MD - 12/07/2018 9:10 AM PST [facility] Pain Center Return Visit Date: 12/07/2018 Chief Complaint Patient presents with Back pain Pain in left leg History of Present Illness: Tracie Farah is a 28 year old female, whose last appoi ntment at the [facility] was December 05, 2018, for a procedure [...] 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 CLINICAL ASSISTANT Brief Pain Inventory: (ten= worst possible [...] Hemroidectomy Trial spinal cord stimulator leads 08/02/2012 [facility], Surgeon: Janak Riojas MD Cholecystectomy Appendectomy Other [...] Social History Narrative Single. Goes to [employer] with a light load. Has been working at [employer], can' t work on [employer]. Has roommates. Allergies Allergen Reactions Morphine Anaphylaxis [...] GRAM-5.86 GRAM SOLUTION Take as directed by [facility]- 2 gallon bowel prep POLYETHYLENE GLYCOL [...] and summary of old medical records (source: [employer]), as summarized in the body of [...] present for the encounter. Irene Krishnan MD [facility] COMPREHENSIVE PAIN CENTER AT [facility] [address] [facility], 4th Floor Mail Code: [id number], [place] [address] documented in thi s encounter Plan of Treatment Not on filedocumented as of this encounter Visit Diagnoses + + | Diagnosis | + + | Complex regional pain syndrome type 1 of left lower extremity - Primary | + + | S/P insertion of spinal cord stimulator | + + documented in this encounter
--- OUTSIDE RECORDS SUMMARY | ~2019-08-12 | XMS | Encounter Summary ---
Demographics + + + | Address | [address] | | | [place] [address] | + + + | Home Phone [...] Team Providers + +------+ + | Care Bilingual Sales Assistant Name | Role | Phone | + +------+ + | Justo Vazquez MD | PCP | | + +------+ + Encounter Details +--------+ + + + + | Date | Type | Department | Care Team | Description | +--------+ + + + + | 04/23/ | Pharmacy | [facility] | | | | 2019 | Visit | & [facility] | | | | | | [address] | | | | | | Mailcode: [place] | | | | | | and | | | | | | Healing, Building 1 | | | | | | [place], [place] | | | | | | [address] | | | | | | [phone] | | | +--------+ + + + [...]
--- OUTSIDE RECORDS SUMMARY | ~2019-08-12 | XMS | Encounter Summary ---
Demographics + + + | Address | [address] | | | [place] [address] | + + + | Home Phone [...] Providers + +------+ + | Care Aircraft Cleaner Name | Role | Phone | [...] Rd | | | | | | [place], [place] | | | | | | [address] | | | +--------+ + + + [...]
--- OUTSIDE RECORDS SUMMARY | ~2019-08-12 | XMS | Encounter Summary ---
Demographics + + + | Address | [address] | | | [place] [address] | + + + | Home Phone [...] Providers + +------+ + | Care Manager Corporate Strategy Name | Role | Phone | + [...] | | Pain | Complex | Ilene, AGRICULTURAL SERVICES DIRECTOR | Catriona M, | | | | Management | regional | [address] | PS[address] | | | | | pain | [address] | [address] | | | | | syndrome | [place], [place] | [place], [place] | | | | | type 1 of | [address] | [address] Phone: | | | | | left lower | Phone: | [phone] | | | | | extremity | [phone] | Fax: | | | | | Intractable | Fax: | [phone] | | | | | cyclical | [phone] | | | | | | vomiting [...] | | | | | | | [place] | | | | | | | PSYCHIATRIC | | | | | | | DIAGNOSTIC | | | | | | | EVAL, NO MED | | | | | | | [facility] [place] | | | | | | | PSYCH TSTNG | | | | | | | PSYCH/PHYS | | | | | | | [place] | | | | | | | PSYCHOTHERAP | | | | | | | Y, 45 MIN | | | +--------+---------+ + + + + Encounter Details +--------+---------+ + + + | Date | Type | Department | Care Team | Description | +--------+---------+ + + + | 10/11/ | Office | Pain Center at [facility] | Jamel Bravo, | Adjustment disorder | | 2017 | Visit | 15th Floor [address] | PhD [address] | with mixed anxiety | | | | [address] Mailcode: | Ave [place], [place] | and depressed mood | | | | [facility] Center for | [address] | (Primary Dx); | | | | Health and Healing, | [phone] | Complex regional | | | | Building | | pain syndrome type 1 | | | | Floor [place], [place] | | of left lower | | | | [address] | | extremity; Abdominal | | | | [phone] | | pain, unspecified | | | [...] as of this encounter Progress Notes Jamel Barvo, PhD - 10/11/2017 10:50 AM [facility] Initial Psychologica l Evaluation IDENTIFYING INFORMATION: Tracie Farah is a 27 y.o. female Date of : 1990 Consulting Psychologist: JAMEL BRAVO PHD Consultation Date: 10/11/2017 Referring Provider: [place] Bright Identifying Information: Tracie Farah is a 27 y.o. female who lives with her paren ts in [place], [place]. The patient was referred for pain [...] by physician. Concentration is 150mg/mL. Compounded by [employer] ([phone]), Disp: , Rfl: 5 lamoTRIgine 200 mg [...] oral recon soln, Take as directed by [facility]- 2 gallon bowel prep, Disp: [...] e. She reported doing some of the pain medicine physician. For enjoyment the patient watches TV, reads, [...] time I spent was approximately 50 minutes cxjn-mn-wavy with the patient and approxima tely 1 hour 40 minutes of orj-podu-xp-face testing, interpreting and synthesizing results. Jamel Bravo, PhD PAIN CENTER AT [facility] 15TH FLOOR [address] [facility] Mail Code: Ch15[place] [address] documented in this en counter [...]
--- OUTSIDE RECORDS SUMMARY | ~2019-08-12 | XMS | Encounter Summary ---
Demographics + + + | Address | [address] | | | [place] [address] | + + + | Home Phone [...] Providers + +------+ + | Care Security Program Manager Name | Role | Phone [...] | Diagnoses | Beulah | Edu Pt Extractor Operator | | | | Therapy | CRPS | Janak Martinez MD | [address] | | | | | (complex | [address] | | | | | regional | [address] | Mailcode: | | | | | pain | Mailstop | [facility] Center | | | | | syndrome), | [id number] | for Health | | | | | lower limb | [place], [place] | and Healing, | | | | | Gait | [address] | Building [address] | | | | | disturbance | Phone: | [place], [place] | | | | | Muscle pain | [phone] | [address] | | | | | Procedures | Fax: | Phone: | | | | | PHYSICAL | [phone] | [phone] | | | | | THERAPY | [...] | | | [place] | Ave [place], [place] | syndrome), lower | | | | [address] | [phone] | limb (Primary Dx) | | | | Mailcode: CH3P | | | | | | [facility] | | | | | | and Healing, | | | | | | Building [address] | | | | | | Floor [place], [place] | | | | | | [address] | | | | | | [phone] | | | +--------+---------+ + + + [...] might be different f rom the original. [id number] BRODY FARAH Date of : 1990 Start of care: 02/14/2012 Date of onset: 02/14/2012 Referring/Attending Practitioner: Janak Riojas MD . Primary/Referral Diagnosis/ICD-9: 355.71B CRPS (complex regional pain syndrome), lower limb Insurance: Payor: [facility] Plan: BCBS OUT OF STATE Product Type: PP O Service period from: 02/14/2012 to: 08/12/2012 Number visits used/authorized: 11/25 [facility] PHYSICAL THERAPY INITIAL EVALUATION SUBJECTIVE: Age: [...] no pain relief. Admitted to the inpatient [facility] program for 1 month in the [...] Diagnostic evaluation: Records from CRPS program at [facility]. Suggest three phase bone sca n. 2. [...] employed by the psychologists here at the [facility]. 2.2 Physical therapy can reduce pain and improve functional status. Suggest Guillermo Sanon. 3. Medication suggestions: 3.1 Continue titrating up duloxetine. 3.2 As for any patient being managed with chronic opioids, we do recommend that the patient have a signed [facility] Material Risk Notice, agree to whatever refill [...] and hemr oidectomy. Social History: lives in [place], 22 years old, not working currently, in [...] or concerns about therapy: she lives in [place]. She is r equesting family members or [...] provided with a token and bocanegra for [facility] site. Treatment began: 1345hrs Treatment ended: 1430hrs Manual therapy: 0min Therapeutic exercise: 15 min ASSESSMENT: pt presents with 10-year history of ankle pain post trauma and multiple surgeri es. She thinks she developed CRPS in 2004. She was diagnosed with CRPS and spent a month in the program at [facility] working through aggressive desensitization and activation which prov ided no lasting benefit. She lives in [place], is going to school, and ambulates with [...] She can work with her PT in [place]. CLINICAL PRIORITIES: 1-follow up with Dr Riojas [...] change in their status. Guillermo Sanon MSPT [facility] Outpatient Rehabilitation Services Mailcode: Ch3p [address] [facility], [address] [place] [address] documented in this encounter Plan of Treatment Not on filedocumented as of this encounter Procedures + +--------+ + + + | Procedure Name | Priori | Date/Time | Associated Diagnosis | Comments | | | ty | | | | + +--------+ + + + | PA THERAPEUTIC | Routin | 02/16/2012 | CRPS (complex | | | EXERCISES | e | 3:34 PM | regional pain | | | | | PDT | syndrome), lower | | | | | | limb | | + +--------+ + + + | PA PHYS THERAPY | Routin | 02/16/2012 | [...]
--- OUTSIDE RECORDS SUMMARY | ~2019-08-12 | XMS | Encounter Summary ---
Demographics + + + | Address | [address] | | | [place] [address] | + + + | Home Phone [...] Team Providers + +------+ + | Care Babbitt Spinner Name | Role | Phone | + [...] 2016 | | Pain Center at | [employer] [address] | | | | | [facility] | [place], [place] | | | | | [address] | [address] | | | | | Mailcode: CH15P | [phone] | | | | | [facility] | | | | | | joana Mack, | | | | | | | | | | | | [place], [place] | | | | | | [address] | | | | | | [phone] | | | +--------+ + + + [...]
--- OUTSIDE RECORDS SUMMARY | ~2019-08-12 | XMS | Encounter Summary ---
Demographics + + + | Address | [address] | | | [place] [address] | + + + | Home Phone [...] Team Providers + +------+ + | Care Roller Leveler Name | Role | Phone | + +------+ + | Justo Vazquez MD | PCP | | + +------+ + Encounter Details +--------+ + + + + | Date | Type | Department | Care Team | Description | +--------+ + + + + | 01/12/ | Telephone | [facility] | Kenny Gaspar MD | | | 2017 | | [place] [facility] [address] | [address] | | | | | [address] | [address] [place], | | | | | Mailcode: [place] | [place] [address] | | | | | [facility] and | [phone] | | | | | [facility] [address] | | | | | | [place], [place] | | | | | | [address] | | | | | | [phone] | | | +--------+ + + + [...]
--- OUTSIDE RECORDS SUMMARY | ~2019-08-12 | XMS | Encounter Summary ---
Demographics + + + | Address | [address] | | | [place] [address] | + + + | Home Phone [...] Providers + +------+ + | Care Oil And Gas Superintendent Name | Role | Phone | [...] | Encounter | Lab at [facility] [address] | [address] | | | | | [address] Mailcode: | [place], [place] | | | | | [facility] | [address] | | | | | and [place], | [phone] | | | | | | | | | | | Floor [place], [place] | | | | | | [address] | | | | | | [phone] | | | +--------+ + + + [...] + +--------+ + + + | X-RAY ANKLE 2 VIEWS | Routin | 03/08/2018 | Left ankle pain, | Results for this | | LEFT | e | 7:43 AM | unspecified | procedure are in the | | | | PDT | chronicity | results section. | + +--------+ + + + documented in this encounter Results X-RAY ANKLE 2 VIEWS [...] + | Diagnosis | + + | Left ankle pain, unspecified chronicity | + + documented in this encounter"
--- OUTSIDE RECORDS SUMMARY | ~2019-08-12 | XMS | Encounter Summary ---
Demographics + + + | Address | [address] | | | [place] [address] | + + + | Home Phone [...] | + + +---------+ + | Patricia oClin | ECON | Unknown | | + + +---------+ + Care Team Providers + +------+ + | Care Hotel Engineer Name | Role | Phone | + +------+ + | Justo Vazquez MD | PCP | | + +------+ + Reason for Visit +--------+ + | Reason | Comments | +--------+ + | Other | | +--------+ + Encounter Details +--------+ + + + + | Date | Type | Department | Care Team | Description | +--------+ + + + + | 11/10/ | Telephone | Digestive Health | Ava Carbajal | Other | | 2015 | | Center at [facility] [address] | MD Melissa | | | | | [address] | | | | | | Mailcode: Center | | | | | | for Health and | | | | | | Healing, Building 2 | | | | | | [place], [place] | | | | | | [address] | | | | | | [phone] | | | +--------+ + + + [...]
--- OUTSIDE RECORDS SUMMARY | ~2019-08-12 | XMS | Encounter Summary ---
Demographics + + + | Address | [address] | | | [place] [address] | + + + | Home Phone [...] Team Providers + +------+ + | Care Mapping Pilot Name | Role | Phone | [...] + | 03/11/ | Documentati | [facility] | Zeeshan Mahoney MD | Pain | | 2019 | on | Pain Center at | [address] | | | | | [facility] | [facility], | | | | | [address] | [place] [address] | | | | | Mailcode: CH15P | [phone] | | | | | [facility] | | | | | | joana Mack, | | | | | | | | | | | | [place], [place] | | | | | | [address] | | | | | | [phone] | | | +--------+ + + + [...]
--- OUTSIDE RECORDS SUMMARY | ~2019-08-12 | XMS | Encounter Summary ---
Demographics + + + | Address | [address] | | | [place] [address] | + + + | Home Phone [...] Team Providers + +------+ + | Care Crusher Feeder Name | Role | Phone | [...] | | Pain | Complex | Ilene, GRINDING MILL OPERATOR | Dawnana M, | | | | Management | regional | [address] | [address] | | | | | pain | [address] | [address] | | | | | syndrome | [place], [place] | [place], [place] | | | | | type 1 of | [address] | [address] Phone: | | | | | left lower | Phone: | [phone] | | | | | extremity | [phone] | Fax: | | | | | Intractable | Fax: | [phone] | | | | | cyclical | [phone] | | | | | | vomiting [...] Pain Medicine | Diagnoses | Chasity, | Certified Travel Counselor Chh1 | | | | / Pain | Abdominal | MD Kenny | [address] | | | | Management | pain, | [address] | [address] | | | | | unspecified | [facility] | Mailcode: | | | | | location | Rd | CH15P Center | | | | | Procedures | [place], [place] | for Health | | | | | CONSULT TO | [address] | and Healing, | | | | | PAIN | Phone: | Building | | | | | MANAGEMENT | [phone] | 1,15th Floor | | | | | | Fax: | [place], [place] | | | | | | [phone] | [address] | | | | | | | Phone: | | | | | | | [phone] | | | | | | | Fax: | | | | | | | [phone] | +--------+--------+ + + + + Encounter Details +--------+---------+ + + + | Date | Type | Department | Care Team | Description | +--------+---------+ + + + | 04/25/ | Office | [facility] | Ilene Bright, | Abdominal pain, | | 2017 | Visit | Pain Center at | GRINDING MILL OPERATOR [address] | unspecified location | | | | [facility] | Ave [place], [place] | (Primary Dx); | | | | [address] | [address] | Complex regional | | | | Mailcode: CH15P | [phone] | pain syndrome type 1 | | | | [facility] | | of left lower | | | | and Healing, | | extremity; | | | | Building , | | Intractable cyclical | | | | Floor [place], [place] | | vomiting with | | | | [address] | | nausea; | | | | [phone] | | Constipation, | | | | [...] encounter Patient Instructions Patient Instructions Ilene Bright, TERESA - 04/25/2017 1:35 PM PDTKelly, Nice to [...] Freddie Guadalupe MD [email or web address] Ilene Childs DNP, GRINDING MILL OPERATOR-C Adult Pain Service /[facility] [address] [place] [address] documented in this encounter Progress Notes Ilene Bright FNP - 04/25/2017 1:35 PM PDTFormatting of this note might be different fr om the original. Date: 04/25/2017 was referred for pain management consultation by Kenny Gaspar MD [address] [place] [phone] Reason for consult: abdominal pain Chief Complaint Patient presents with Abdominal pain Back pain History of Present Illness: Tracie Farah is a 26 year old female with a history of depression, complex regional pain syndrome (left lower extremity) for this she follows with a neurologist at [facility] in [facility] [place]. She has been stable on her current [...] (works better) Just started her on Celebrex (terminal carman option) Intranasal ketamine Lamotrigine Memantine Ibuprofen Cymbalta 20 mg BID Cyclobenzaprine Her nonmedication treatment has not included acupuncture, etc due to limited income. She feels that the most effective treatments include: medication (toradol). lives in [place], [place] alone and with her children. She receives disability. does not have specific goals for today's appointment. [facility] QUESTIONNAIRE BRIEF PAIN 04/24/2017 Please rate how [...] has interfered with your sleep : 8 [facility] New Patient Questionnaire Responses 04/24/2017 What is [...] or to get rid of a hangover (eye-button riveter)? No Do you drink alcohol to decrease [...] Trial spinal cord stimulator leads 08/02/2012 [facility], Surgeon: Janak Riojas MD Cholecystectomy [...] History Social History Narrative Single. Goes to [employer] with a light load. Has been working at [employer], can' t work on [employer]. Has roommates. Allergies Allergen Reactions Morphine Anaphylaxis [...] by physician. Concentration is 150mg/mL. Compounded by [facility] ) LAMOTRIGINE 200 MG TABLET Take [...] directed by [facility]- 2 gallon bowel prep POLYETHYLENE GLYCOL 3350 17 GRAM/DOSE ORAL POWDER Take 17 g by mouth once daily. PROMETHAZINE 12.5 MG TABLET Take 12.5 mg by mouth four times daily as needed for nausea/vom iting. SUCRALFATE 1 GRAM TABLET Take 1 g by mouth four times daily. Radiology/Diagnostic Tests: MR ENTEROGRAPHY ABDOMEN AND PELVIS WWO CONTRAST Order: [id number] Performed: 01/31/2017 4:34 PM Status: Final result [...] 3:50 PM X-RAY ABDOMEN 1 VIEW Order: [id number] Performed: 03/19/2017 6:52 AM Status: Final result [...] and summary of old medical records (source: [employer]), as summarized in the body of the [...] possible opioid-sparing effects (Stevie Paulino et al.C [employer], (8):1656-42, 2007) and evidence that it can work [...] The Fibro Manual, by Freddie Guadalupe MD [email or web address] Central sensitization Ilene Childs DNP, GRINDING MILL OPERATOR-C Adult Pain Service /[facility] [address] [place] [id number] Display Progress Note in ePrimeCarehart: No documented in this e ncounter Plan [...]
--- OUTSIDE RECORDS SUMMARY | ~2019-08-12 | XMS | Encounter Summary ---
Demographics + + + | Address | [address] | | | [place] [address] | + + + | Home Phone [...] Team Providers + +------+ + | Care Siding Mechanic Name | Role | Phone | [...] | | | sympathetic | [place] | [address]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 | FAMILY | Mailstop | | | | | of lower | MEDICINE P | [id number] | | | | | limb | [address] | [place], [place] | | | | | | [place], | [address] | | | | | | [place] [address] | Phone: | | | | | | Phone: | [phone] | | | | | | [phone] | Fax: | | | | | | Fax: | [phone] | | | | | | [phone] | | +--------+--------+ + + + + Encounter Details +--------+---------+ + + + | Date | Type | Department | Care Team | Description | +--------+---------+ + + + | 08/04/ | Office | [facility] | Dale Cantu, | CRPS (complex | | 2011 | Visit | Pain Center at | MD [address] [facility] | regional pain | | | | [facility] | [facility] [id number] | syndrome), lower | | | | [address] | [place], [place] | limb (Primary Dx) | | | | Mailcode: CH15P | [address] | | | | | [facility] | [phone] | | | | | and Healing, | | | | | | Building | | | | | | Floor [place], [place] | | | | | | [address] | | | | | | [phone] | | | +--------+---------+ + + + [...] evaluated the patient with Fellow Nhan Guo [facility], who conducted the initial history. I reviewed the history in det ail and edited his note. I was present for the examination and formulation portions of the encounter. I agree with the findings and the plan of care as documented in our notes. DALE CANTU MD Exchange Trouble Shooter, [facility] Crimper Assembler, Pain Medicine Professor, Anesthesiology & Perioperative Medicine [...] physical activity and social withdrawal enok Gutierrez, [facility] - 08/04/2012 7:25 AM PDTFormatting of this note might be different from the [facility] Return Visit with Dr. Dale [...] has been treated at the [facility] for lower limb pain with the following [...] and a pain drawing which I reviewed. [facility] Brief Pain Inventory: (ten= worst possible pain or complete interference) Right Now: 8 (08/04/12 1353) Least in 24 hours: 7 (08/04/12 1353) Worst in 24 hours: 9 (08/04/12 1353) Average: 8 (08/04/12 135) % Relief (med/treat): 30 (08/04/12 1353) General Activity: 10 (08/04/12 1353) Mood: 6 (08/04/12 1353) Walking Ability: 5 (08/04/12 1353) Normal Work: 7 (08/04/12 1353) Relations with Others: 6 (08/04/12 1353) [...] The Review of Systems obtained by the [facility] was reviewed. Additional Review of Systems: [...] multiple programs with both [facility] and [facility] programs, however it appears that it does [...] a bath today, OK to shower. HENOK GUO, [facility] documented in this en counter Plan of Treatment Not on filedocumented as of this encounter Visit Diagnoses + + | Diagnosis | + + | CRPS (complex regional pain syndrome), lower limb - Primary Causalgia of lower limb | + + documented in this encounter
--- OUTSIDE RECORDS SUMMARY | ~2019-08-12 | XMS | Encounter Summary ---
Demographics + + + | Address | [address] | | | [place] [address] | + + + | Home Phone [...] Team Providers + +------+ + | Care Ad Operations Coordinator Name | Role | Phone | [...] | | 2016 | | Center at [facility] [address] | MD Melissa | | | | | [address] | | | | | | Mailcode: Center | | | | | | for Health and | | | | | | Healing, [facility] [address] | | | | | | [place], [place] | | | | | | [address] | | | | | | [phone] | | | +--------+ + + + [...]
--- OUTSIDE RECORDS SUMMARY | ~2019-08-12 | XMS | Encounter Summary ---
Demographics + + + | Address | [address] | | | [place] [address] | + + + | Home Phone [...] Team Providers + +------+ + | Care Event Marketing Intern Name | Role | Phone | + +------+ + | Justo Vazquez MD | PCP | | + +------+ + Encounter Details +--------+ + + + + | Date | Type | Department | Care Team | Description | +--------+ + + + + | 12/27/ | Ancillary | [facility] | Alex Sanchez, | | | 2018 | Orders | Pain Center at | ,PhD [address] | | | | | [facility] | [facility] [address] [facility] [address] | | | | | [address] | [place], [place] | | | | | Mailcode: CH15P | [address] | | | | | [facility] | [phone] | | | | | and Healing, | | | | | | | | | | | | Floor [place], [place] | | | | | | [address] | | | | | | [phone] | | | +--------+ + + + [...]
--- OUTSIDE RECORDS SUMMARY | ~2019-08-12 | XMS | Encounter Summary ---
Demographics + + + | Address | [address] | | | [place] [address] | + + + | Home Phone [...] Team Providers + +------+ + | Care Energy Operations Vice President Name | Role | Phone | + +------+ + | Justo Vazquez MD | PCP | | + +------+ + Encounter Details +--------+ + + + + | Date | Type | Department | Care Team | Description | +--------+ + + + + | 12/28/ | Telephone | [facility] | Ilene Bright, | | | 2019 | | Pain Center at | LEAD PRESSMAN [address] | | | | | [facility] | Ave [place], [place] | | | | | [address] | [address] | | | | | Mailcode: CH15P | [phone] | | | | | [facility] | | | | | | and Healing, | | | | | | | | | | | | [place], [place] | | | | | | [address] | | | | | | [phone] | | | +--------+ + + + [...]
--- OUTSIDE RECORDS SUMMARY | ~2019-08-12 | XMS | Encounter Summary ---
Demographics + + + | Address | [address] | | | [place] [address] | + + + | Home Phone [...] Team Providers + +------+ + | Care Cane Pusher Name | Role | Phone | + [...] | | | sympathetic | [place] | [address]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 | FAMILY | Mailstop | | | | | of lower | MEDICINE P | [address] | | | | | limb | [address] | [place], [place] | | | | | | [place], | [address] | | | | | | [place] [address] | Phone: | | | | | | Phone: | [phone] | | | | | | [phone] | Fax: | | | | | | Fax: | [phone] | | | | | | [phone] | | +--------+--------+ + + + + Encounter Details +--------+---------+ + + + | Date | Type | Department | Care Team | Description | +--------+---------+ + + + | 09/04/ | Office | [facility] Comprehensive | Dale Cantu, | CRPS (complex | | 2011 | Visit | Pain Center at | [address] | regional pain | | | | [facility] | [facility] [address]7089 | syndrome), lower | | | | [address] | [place], [place] | limb; Gait | | | | Mailcode: CH15P | [address] | disturbance; Sleep | | | | [facility] | [phone] | disturbance, | | | | and Healing, | | unspecified; | | | | | | Adjustment reaction | | | | Floor [place], [place] | | | | | | [address] | | | | | | [phone] | | | +--------+---------+ + + + [...] Juvenal S; Nato K; Ryan jones H; yLdia M. Adapted from Clin J Pain. 2007 [...] CRPS patients (Loretta Rousseau, et al. Katrina Plating Inspector Med. 2010;152:152-158) . Bisphosphonate trial. Typically, I [...] Cantu MD - 09/04/2012 7:45 AM PDT [facility] Comprehensive Pain Center Return Visit with Dr. [...] a pain drawing which I reviewed. [facility] Brief Pain Inventory: (ten= worst possible [...] cord stimulator trial last month with [facility] equipment wit h no benefit to her [...] Trial spinal cord stimulator leads 08/02/2012 [facility], Surgeon: Dale Cantu MD Family History Problem [...] The Review of Systems obtained by the [facility] was reviewed. Additional Review of Systems commen [...] of Pain: 13(1):17-21, 2008). DALE CANTU MD Lead Assistant Manager, [facility] Tire Buffer, Pain Medicine Professor, Anesthesiology & Perioperative Medicine [...]
--- OUTSIDE RECORDS SUMMARY | ~2019-08-12 | XMS | Encounter Summary ---
Demographics + + + | Address | [address] | | | [place] [address] | + + + | Home Phone [...] Providers + +------+ + | Care Residential Mental Health Worker Name | Role | Phone | [...] Medication Question | | 2016 | | Center at [facility] [address] | [address] | | | | | [address] [place], | | | | | Mailcode: [place] | [place] [address] | | | | | for Health and | [phone] | | | | | [facility] 2 | | | | | | [place], [place] | | | | | | [address] | | | | | | [phone] | | | +--------+ + + + [...]
--- OUTSIDE RECORDS SUMMARY | ~2019-08-12 | XMS | Encounter Summary ---
Demographics + + + | Address | [address] | | | [place] [address] | + + + | Home Phone [...] Team Providers + +------+ + | Care Equity Research Associate Name | Role | Phone | [...] + + | 02/21/ | Telephone | [facility] | Alex Sanchez, | Medication Refill | | 2017 | | Pain Center at | ,PhD [address] | Request (ketamine- | | | | [facility] | [facility] [address] | mail script to | | | | [address] | [place], [place] | patient) | | | | Mailcode: 15 | [address] | | | | | [facility] | [phone] | | | | | and Martina, | | | | | | | | | | | | Floor [place], [place] | | | | | | [address] | | | | | | [phone] | | | +--------+ + + + [...]
--- OUTSIDE RECORDS SUMMARY | ~2019-08-12 | XMS | Encounter Summary ---
Demographics + + + | Address | [address] | | | [place] [address] | + + + | Home Phone [...] Providers + +------+ + | Care County Surveyor Name | Role | Phone | + +------+ + | Justo Vazquez MD | PCP | | + +------+ + Encounter Details +--------+ + + + + | Date | Type | Department | Care Team | Description | +--------+ + + + + | 12/02/ | Document-Sc | Health Information | Unknown . | | | 2017 | anned | Services [phone] | | | | | [address] | | | | | | Mailcode: OP17A | | | | | | [facility] | | | | | | [place], [place] | | | | | | [address] | | | | | | [phone] | | | +--------+ + + + [...]
--- OUTSIDE RECORDS SUMMARY | ~2019-08-12 | XMS | Encounter Summary ---
Demographics + + + | Address | [address] | | | [place] [address] | + + + | Home Phone [...] Team Providers + +------+ + | Care Emergency Nurse Name | Role | Phone | [...] Medical Records | | 2017 | | [place] at [facility] [address] | MD Melissa | Review | | | | [address] | | | | | | Mailcode: [place] | | | | | | [facility] and | | | | | | [facility], [facility] 2 | | | | | | [place], [place] | | | | | | [address] | | | | | | [phone] | | | +--------+ + + + [...]
--- OUTSIDE RECORDS SUMMARY | ~2019-08-12 | XMS | Encounter Summary ---
Demographics + + + | Address | [address] | | | [place] [address] | + + + | Home Phone [...] Team Providers + +------+ + | Care Mortgage Underwriter Name | Role | Phone | + +------+ + | Justo Vazquez MD | PCP | | + +------+ + Encounter Details +--------+ + + + + | Date | Type | Department | Care Team | Description | +--------+ + + + + | 05/14/ | Telephone | [facility] | Alex Sanchez, | | | 2019 | | Pain Center at | ,PhD [address] | | | | | [facility] | [address] | | | | | [address] | [place], [place] | | | | | Mailcode: CH15P | [address] | | | | | [place] for [facility] | [phone] | | | | | and Healing, | | | | | | | | | | | | Floor [place], [place] | | | | | | [address] | | | | | | [phone] | | | +--------+ + + + [...]
--- OUTSIDE RECORDS SUMMARY | ~2019-08-12 | XMS | Encounter Summary ---
Demographics + + + | Address | [address] | | | [place] [address] | + + + | Home Phone [...] Team Providers + +------+ + | Care Carburizing Furnace Operator Name | Role | Phone | [...] | | | | | regional | [address] | Mailcode: | | | | | pain | Mailstop | CH15P Center | | | | | syndrome), | [id number] | for Health | | | | | lower limb | [place], [place] | and Healing, | | | | | Gait | [address] | Building [address], | | | | | disturbance | Phone: | 15th Floor | | | | | Muscle pain | [phone] | [place], [place] | | | | | Procedures | Fax: | [address] | | | | | CONSULT TO | [phone] | Phone: | | | | | PAIN CENTER | | [phone] | | | | | | | Fax: | | | | | | | [phone] | +--------+--------+ + + + + Encounter Details +--------+---------+ + + + | Date | Type | Department | Care Team | Description | +--------+---------+ + + + | 02/28/ | Office | Pain Center at [facility] | Shelia Feldman, PhD | Unspecified | | 2011 | Visit | 15th Floor [address] | | adjustment reaction | | | | [address] Mailcode: | | (Primary Dx); Sleep | | | | CH15P [facility] | | disturbance, | | | | Health and Healing, | | unspecified | | | | Building | | | | | | Floor [place], [place] | | | | | | [address] | | | | | | [phone] | | | +--------+---------+ + + + [...] [facility] Name: Tracie Farah MR#: [id number] Date of : 1990 Date: February 29, [...] & Psychiatric History: Tracie Farah lives in [place] in a shared apartment space. She has struggled wi th CRPS for at least 5 years; original injury to her foot was in 2001. In summer 2010 she h ad inpt pain tx at [facility] with limited group home benefit. Recent flare; she arrived using crutches [...] learned some pain management techniques at [facility], mainly DB and PMR, which she [...] Travel is a barrier; she lives in [place] DSM-IV Diagnoses/Impressions: [place] I: 1. 309.9 Unspecified Adjustment Reaction 2. 780.50 Sleep Disturbance [place] II: Deferred. [place] III: Patient Active Problem List Diagnoses CRPS (complex regional pain syndrome), lower limb Gait disturbance Muscle pain Adjustment reaction [place] IV: CRPS pain, pain related debility;difficulty attending class, working; family stres s; stalker ex-bf [place] V: Global Assessment of Functioning = 75 [...] me should questions arise. SHELIA FELDMAN, PHD Dough Mixer Helper Licensed Clinical Psychologist [facility] Department of Anesthesiology & Perioperative Medicine [facility] [address] [place] [address] documented in this enc ounter Plan of Treatment Not on filedocumented as of this encounter Visit Diagnoses + + | Diagnosis | + + | Unspecified adjustment reaction - Primary | + + | Sleep disturbance, unspecified | + + documented in this encounter
--- OUTSIDE RECORDS SUMMARY | ~2019-08-12 | XMS | Encounter Summary ---
Demographics + + + | Address | [address] | | | [place] [address] | + + + | Home Phone [...] Team Providers + +------+ + | Care Billiard Player Name | Role | Phone | + [...] | | | | | Procedures | [place], [place] | | | | | | MR | [id number] | | | | | | ENTEROGRAPHY | Phone: | | | | | | ABDOMEN AND | [phone] | | | | | | PELVIS WWO | Fax: | | | | | | CONTRAST | [phone] | | +--------+--------+ + + + + Reason for Visit + + + | Reason | Comments | + + + | Follow-up visit | | + + + Encounter Details +--------+---------+ + + + | Date | Type | Department | Care Team | Description | +--------+---------+ + + + | 01/11/ | Office | [facility] | Kenny Gaspar MD | Abdominal pain, | | 2017 | Visit | [place] [facility] [address] | [address] | unspecified location | | | | [address] | Giuliana Maldonado [place], | (Primary Dx) | | | | Mailcode: [place] | [place] [address] | | | | | for Health and | [phone] | | | | | [facility], [facility] [address] | | | | | | [place], [place] | | | | | | [address] | | | | | | [phone] | | | +--------+---------+ + + + [...] + + + | Blood Pressure | 147/96 | 01/11/2017 3:15 PM | | | | | PST | | + + + + + | Pulse | 75 | 01/11/2017 3:15 PM | | | | | PST | | + + + + + | Temperature | 36.3 C (97.4 F) | 01/11/2017 3:15 PM | | | | | PST | | + + + + + | Respiratory Rate | 15 | 01/11/2017 3:15 PM | | | | | PST | | + + + + + | Oxygen Saturation | 100% | 01/11/2017 3:15 PM | | | | | PST | | + + + + + | Inhaled Oxygen | - | - | | | Concentration | | | | + + + + + | Weight | 68.9 kg (151 lb 12.8 | 01/11/2017 3:15 PM | | | | oz) | PST | | + + + + + | Height | 165.1 cm (5' 5") | 01/11/2017 3:15 PM | | | | | PST | | + + + + + | Body Mass Index | 25.26 | 01/11/2017 3:15 PM | | | | | PST | | + + + + + documented in this encounter Patient Instructions Patient Instructions Kenny Gaspar MD - 01/11/2017 3:15 PM PSTTracie Donaldson Sofi It was nice to see you in clinic today. Our plan for you is: 1) have ordered external urine and blood work to be drawn during a flare - check for porphy ellen, C1 esterase, heavy metal poisoning 2) MR enterography - [phone] to schedule 3) can increase miralax to 6 times per day Return to clinic in 3 months Please feel free to call our clinic with any questions. [phone] Kenny Gaspar MD Fellow, Division of Gastroenterology and Hepatology documented in this encounter Progress Notes Celia Lin MD - 01/11/2017 3:15 PM PST ----- Attending Attestation: I interviewed and examined this patient along with Dr. Gaspar on 01/11/17 and discussed the jaciel e with both the patient and Fellow. I agree with the Fellow's findings and plan as written i n their attached note. Celia Lin MD Facilities Maintenance Workerbiophysics professor Division of Gastroenterology & Hepatology [facility] Kenny Dodge MD - 01/11 3:15 PM PST Gastroenterology Clinic Follow-Up Note 01/11/2017 CC/ID: Tracie Farah is a 26 F PMHx depression, complex regional pain syndrome(CRPS ) here for follow-up of n/v, abdominal pain INTERVAL HISTORY: Previously seen by Dr. Carbajal 08/10/16 - 10/2015 - hospitalized at [facility] for nausea/vomiting/pain -> [facility] -> CT A/P with h eavy stool burden - normal gastric emptying study - felt that symptoms likely due to constipation (high stool burden on CT) vs IBS vs GERD - didn't tolerate reglan, domperidone didn't help - prior EGD with reflux - main residual issue abdominal pain - Plan - increase PPI and trial 2 day prep Since then: - 2 day prep which resolved pain and vomiting for 2 months. Pain then came back. - having occasional flare-ups which last for up to 4 weeks at a time, goes to ER and gets t oradol, golytely clean-out - anorectal manometry - normal (except did not complete RAIR) - colonoscopy 12/14/16 - normal - Sitz Marker test - normal (no markers on day 3 x-ray) - takes 4 capfuls of miralax per day - reports previously tried Amitiza, Linzess without benefit Bowel Habits: 1-5 bowel movements, usually small, +tenesmus Abdominal Pain: not at baseline, only with flare-ups Weight loss: has lost 30lbs in the last 2 years Nausea/vomiting: none at baseline, only with flares Appetite: good; high fiber diet, drinks lots water Outpatient Medications: Current Outpatient Prescriptions on File Prior to Visit Medication Sig Dispense Refill ketamine 100 mg/mL injection solution 150mg/Ml Susu. Takes intranasal every 3 hrs prn 5 lamoTRIgine 200 mg oral tablet Take 1 tablet by mouth every morning and 2 tablets by mo uth every evening 0 levonorgestrel (MIRENA) 20 mcg/24 hr Intrauterine IUD [...] as needed. naltrexone 50 mg oral tablet 1 ondansetron ODT (ZOFRAN ODT) 4 mg oral tablet,disintegrating Dissolve 1 tablet in mouth every twelve hours as needed for nausea/vomiting. 30 tablet 0 ondansetron ODT 4 mg oral tablet,disintegrating Dissolve 1 tablet in mouth every twelve hours as needed. 15 tablet 0 pantoprazole 40 mg oral tablet,delayed release (DR/EC) Take 40 mg by mouth two times da evita. 0 peg-electrolyte 236-22.74-6.74 -5.86 gram oral recon soln Take as directed by [facility]- 2 gallon bowel prep 8000 mL 0 polyethylene glycol 17 gram/dose oral powder Take 17 g by mouth once daily. 119 g No current facility-administered medications on file prior to visit. EXAM VS: Filed Vitals: 01/11/2017 3:15 PM Height: 1.651 m (5' 5") Weight: 68.9 kg (151 lb 12.8 oz) BP: 147/96 Pulse: 75 Temp: 36.3 C (97.4 F) TempSrc: Oral Resp: 15 SpO2: 100% PainSc: 0 - Zero BMI: 25.26 kg/(m^2) Gen: well appearing HEENT: MMM. No scleral icterus. No oral lesions. Pulm: Breathing comfortably. Abd: Bowel sounds present. Soft, nondistended, +diffusely TTP Psych: appropriately conversational Neuro: Moving all extremities, grossly intact. Skin: No jaundice Interval Labs/Imaging: Lab Results Component Value Date WBC 6.81 08/08/2016 RBC 4.55 08/08/2016 HCT 41.8 08/08/2016 HB 14.1 08/08/2016 MCV 91.9 08/08/2016 MCHC 33.7 08/08/2016 PLT 291 08/08/2016 NEUTROPERC 48.8 (L) 08/08/2016 LYMPHPERC 42.3 (H) 08/08/2016 MONOPERC 5.9 08/08/2016 EOSPERC 2.1 08/08/2016 BASOPERC 0.6 08/08/2016 NEUTROPHILCO 3.33 08/08/2016 GLU 80 08/08/2016 BUN 9 08/08/2016 CR 0.82 08/08/2016 TP 8.0 08/08/2016 ALB 4.4 08/08/2016 CA 8.3 (L) 08/08/2016 TBILI 0.5 08/08/2016 AP 64 08/08/2016 AST 41 08/08/2016 NA 143 08/08/2016 K 3.7 08/08/2016 CL 110 (H) 08/08/2016 BICARB 26 08/08/2016 ALT 19 08/08/2016 ASSESSMENT Tracie Farah is a 26 F PMHx [...] tried Linzess and Amitiza withou t benefit. RECOMMENDATIONS: 1) have ordered external urine and blood work to be drawn during a flare - check for porphy ellen, C1 esterase, heavy metal poisoning 2) MR enterography 3) increase miralax to 6 times per day Return to clinic in 3 months This plan was discussed and formulated with gastroenterology attending, Dr. Lin. Kenny Gaspar MD Fellow, Division of Gastroenterology and HepatologyElectronically signed by MD ghada Jackson 01/13/2017 11:51 AM PSTdocumented in this encounter Plan of Treatment Not on filedocumented as of this encounter Results MR ENTEROGRAPHY ABDOMEN AND [...] + + | [facility] | | | | | VOICE RECOGNITION | | | | + +---------+ + + documented in this encounter Visit Diagnoses + + | Diagnosis | + + | Abdominal pain, unspecified location - Primary | + + documented in this encounter
--- OUTSIDE RECORDS SUMMARY | ~2019-08-12 | XMS | Encounter Summary ---
Demographics + + + | Address | [address] | | | [place] [address] | + + + | Home Phone [...] Team Providers + +------+ + | Care Jet Blade Polisher Name | Role | Phone | + [...] | | | | regional | ,PhD [address] | | | | | | pain | [address] | | | | | | syndrome | [address] | | | | | | type 1 of | Rd | | | | | | left lower | [place], [place] | | | | | | extremity | [address] | | | | | | Procedures | Phone: | | | | | | CONSULT TO | [phone] | | | | | | ORTHOPEDICS | Fax: | | | | | | AND | [phone] | | | | | | REHABILITATI | | | | | | | ON | | | +--------+--------+ + + + + Encounter Details +--------+ + + + + | Date | Type | Department | Care Team | Description | +--------+ + + + + | 06/08/ | Headhunter | [facility] | Alex Sanchez, | Complex regional | | 2018 | | Pain Center at | ,PhD [address] | pain syndrome type 1 | | | | [facility] | [facility] | of left lower | | | | [address] | [place], [place] | extremity (Primary | | | | Mailcode: CH15P | [address] | Dx) | | | | [place] for [facility] | [phone] | | | | | and Healing, | | | | | | | | | | | | Floor [facility] [place] | | | | | | [address] | | | | | | [phone] | | | +--------+ + + + [...]
--- OUTSIDE RECORDS SUMMARY | ~2019-08-12 | XMS | Encounter Summary ---
Demographics + + + | Address | [address] | | | [place] [address] | + + + | Home Phone [...] Team Providers + +------+ + | Care Waistline Joiner Lockstitch Name | Role | Phone | + [...] + + | 08/07/ | Refill | [facility] | Alex Sanchez, | Refill Request | | 2018 | | Pain Center at | ,PhD [address] | | | | | [facility] | [address] | | | | | [address] | [place], [place] | | | | | Mailcode: CH15 | [address] | | | | | [facility] | [phone] | | | | | and [address]ina, | | | | | | Building | | | | | | Floor [facility] [place] | | | | | | [address] | | | | | | [phone] | | | +--------+--------+ + + + [...]
--- OUTSIDE RECORDS SUMMARY | ~2019-08-12 | XMS | Encounter Summary ---
Demographics + + + | Address | [address] | | | [place] [address] | + + + | Home Phone [...] Team Providers + +------+ + | Care Family Program Specialist Name | Role | Phone | [...] | | | sympathetic | [place] | [address]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 | FAMILY | [address] | | | | | of lower | MEDICINE P | [id number] | | | | | limb | [address] | [place], [place] | | | | | | [place], | [address] | | | | | | [place] [address] | Phone: | | | | | | Phone: | [phone] | | | | | | [phone] | Fax: | | | | | | Fax: | [phone] | | | | | | [phone] | | +--------+--------+ + + + + Encounter Details +--------+---------+ + + + | Date | Type | Department | Care Team | Description | +--------+---------+ + + + | 03/17/ | Office | [facility] | Dale Cantu, | CRPS (complex | | 2011 | Visit | Pain Center at | [address] | regional pain | | | | [place] | [address] [address] | syndrome), lower | | | | [address] | [place], [place] | limb; Adjustment | | | | Mailcode: CH15 | [address] | reaction; Muscle | | | | [facility] | [phone] | pain; Gait | | | | and Healing, | | disturbance | | | | Building | | | | | | Floor [place], [place] | | | | | | [address] | | | | | | [phone] | | | +--------+---------+ + + + [...] is not relieved after this time period, f shauna your doctor's directions on how to continue [...] Pain: After Your Visit", log into your [employer] nt at [email or web address]. You can enter G828 in the Color [employer] Library" search box. Not on Tagkasthart? Review the MyChart section of your After Visit Summary for directions on liz rea to sign up. [phone] [employer]ule Game. Care instructions adapted under license by [facility] [place]. This care instruction is for use with your licensed healthcar e professional. If you have questions about a medical condition or this instruction, always ask your healthcare professional. [employer] disclaims any warranty or liabili ty for your use of this information. Content Version: 9.2.069782; Last Revised: April 29, 2011 Nortriptyline for [...] is not relieved after this time period, f shauna your doctor's directions on how to continue [...] Pain: After Your Visit", log into your [employer] nt at [email or web address]. You can enter G828 in the [employer] Library" search box. Not on SGB? Review the Tagkasthart section of your After Visit Summary for directions on ho w to sign up. [phone] Jule Game. Care instructions adapted under license by [facility] [place]. This care instruction is for use with your licensed healthcar e professional. If you have questions about a medical condition or this instruction, always ask your healthcare professional. [employer] disclaims any warranty or liabili ty for your use of this information. Content Version: 9.2.191552; Last Revised: April 29, 2011 documented in this encounter Progress Notes Dale Cantu MD - 03/17/2012 4:21 PM PDTI saw and evaluated the patient with Resident : Marquis Elaine MD, who conducted the initial history. I reviewed the history in detail a nd edited his note. I was present for the examination and formulation portions [facility]. I agree with the findings and the plan of care as documented in our notes. DALE CANTU MD Ergonomics Technician, [facility] Java Websphere Developer, Pain Medicine Professor, Anesthesiology & Perioperative Medicine NAMollMarquis manriquez MD - 03/17/2012 3:42 PM PDT [facility] Return Visit with Dr. Dale Cantu 03/17/2012 Tracie Farah; ; : 1990 Chief Complaint Patient presents with Return Patient Foot pain History of Present Illness: Ms. Farah is a 21 yo F who was diagnosed with CPRS following a trampoline injury 04/12/20 02 with distal fibula fracture involving the growth [...] her pain. She continues to take 6-8 [place] per day and 600 mg of ibuprofen [...] and a pain drawing which I reviewed. [facility] Brief Pain Inventory: (ten= worst possible pain [...] The Review of Systems obtained by the [facility] was reviewed. Additional Review of Systems: Bones, [...] Charline Choe MA - 03/17/2012 3:42 PM PDTCMSoham History: PMH/PSH/SH/FH review 1. Has your pain [...] you require any medication refills today? no REC THERAPIST ROS: 1. Bones, Joints, and Muscles: cramps [...]
--- OUTSIDE RECORDS SUMMARY | ~2019-08-12 | XMS | Encounter Summary ---
Demographics + + + | Address | [address] | | | [place] [address] | + + + | Home Phone [...] Providers + +------+ + | Care Screen Roller Name | Role | Phone | + +------+ + | Justo Vazquez MD | PCP | | + +------+ + Encounter Details +--------+ + + + + | Date | Type | Department | Care Team | Description | +--------+ + + + + | 12/27/ | Ancillary | [facility] | Alex Sanchez, | | | 2018 | Orders | Pain Center at | ,PhD [address] | | | | | [facility] | [facility] | | | | | [address] | [place], [place] | | | | | Mailcode: CH15P | [address] | | | | | [facility] | [phone] | | | | | and Healing, | | | | | | | | | | | | Floor [place], [place] | | | | | | [address] | | | | | | [phone] | | | +--------+ + + + [...]
--- OUTSIDE RECORDS SUMMARY | ~2019-08-12 | XMS | Encounter Summary ---
Demographics + + + | Address | [address] | | | [place] [address] | + + + | Home Phone [...] Providers + +------+ + | Care Coffee Supervisor Name | Role | Phone | [...] 2015 | | Center at [facility] [address] | MD Melissa | | | | | [address] | | | | | | Mailcode: Center | | | | | | for Health and | | | | | | Healing, Building [address] | | | | | | [place], [place] | | | | | | [address] | | | | | | [phone] | | | +--------+ + + + [...]
--- OUTSIDE RECORDS SUMMARY | ~2019-08-12 | XMS | Encounter Summary ---
Demographics + + + | Address | [address] | | | [place] [address] | + + + | Home Phone [...] Providers + +------+ + | Care Carton Inspector Name | Role | Phone | [...] | syndrome | [address] | [address] | | | | | type [address] of | [address] | Rd [place], | | | | | left lower | [place], [place] | [place] | | | | | extremity | [address] | [address] | | | | | Muscle pain | Phone: | Phone: | | | | | Procedures | [phone] | [phone] | | | | | REQUEST TO | Fax: | Fax: | | | | | SURGERY | [phone] | [phone] | | | | | INFORMATION SECURITY RISK ANALYST | | | | | | | FL INJ,ANES | | | | | | | AGENT,SCIATI | | | | | | | C | | | | | | | NERVE,SINGLE | | | | | | | FL INJECT | | | | | | | NERV | | | | | | | BLCK,OTHR | | | | | | | PERIPH NERV | | | | | | | FL SONO | | | | | | | GUIDE FOR | | | | | | | NEEDLE | | | | | | | PLACEMENT | | | | | | | FL MOD | | | | | | | SEDATION | | | | | | | >=5YRS SAME | | | | | | | MD/QUAL | | | | | | | PROV; INIT | | | | | | | 15 MIN FL | | | | | | | [...] 12/27/ | Procedure | Pain Center at [facility] | Alex Sanchez, | Pain in left leg; | | 2017 | | Floor [address] | ,PhD [address] | Procedure | | | | [address] Mailcode: | [address] | | | | | CH15P Center for | [place], [place] | | | | | Health and Healing, | [address] | | | | | | [phone] | | | | | Floor [place], [place] | | | | | | [address] | | | | | | [phone] | | | +--------+ + + + [...] mi nayelit be different from the original. [facility] Pain Center Patient Instructions - Post Interventional Procedure Date: 12/27/2017 Name: Tracie Farah Date of : 1990 Procedure Performed: trigger point injection and popliteal/sciatic block. Procedure Provider: Alex Sanchez MD,PhD If you have any problems you believe are associated with your procedure tonight, Please call the Hospital Mixer Crane Operator, and ask for the Pain Management Consu ltant. If you have problems or questions between 9:00 am and 4:00 pm, Please call the [facility] Pain Center Nurse Triage Line, . If [...] paper. Please fax the pain diary to [phone] or attach a scanned image of it to a Abaxia message to your doct or.. The area [...] to the larry ent. David Linares MD [facility] Pain Center documented in this encounter Progress Notes Alex Sanchez MD,PhD - 12/27/2017 3:00 PM PSTI was present for the entire procedure ( popliteal nerve block and abdominal scar neuroma injection) and all bocanegra elements of this vis it. I reviewed the documentation of the other [facility] providers and concur with Dr. Linares's findings. I edited his note. Alex Sanchez MD,PhD Card Sorter Anesthesiology and Pain Management [facility] [place] David Pennington MD - 12/27/2017 3:00 PM PSTPROVIDER OPERATIVE NOTE Date: December 27, 2017 Location: [facility] Procedure Room Tracie Farah [id number] :1990, presents to clinic for: PROCEDURE: Popliteal/sciatic [...] scar neuroma ATTENDING PHYSICIAN: Alex Sanchez MD,PhD PNEUMATIC TUBE REPAIRER: Fellow David Linares MD ANESTHESIA: sedation Isadora [...] sedation. Ms. Farah was escorted to the [facility] Procedure R oom, where she was [...] procedure. Images were saved, and sent to [employer]. Ms. Farah was transported to the [facility] Pain Center post-procedure recovery area. She [...] by physician. Concentration is 150mg/mL. Compounded by [facility] ) LEVONORGESTREL 20 MCG/24 HR (5 [...] GRAM SOLUTION Take as directed by [facility] Digestive [facility]- 2 gallon bowel prep POLYETHYLENE GLYCOL [...] PRE-SEDATION: Date: December 27, 2017 Tracie Farah [id number] 1990 ALLERGIES: Morphine Previous reaction to Sedation/Analgesia: [...] ride here with you? yes Who?: mother RN/ZOFIA History: 1. Has your pain changed [...] of physical activity and soci al withdrawal oIsadora flaherty RN - 12/27/2017 3:00 PM PSTNurse PRE-SEDATION: Date: December 27, 2017 Tracie Farah [id number] 1990 See RN /MASH FILTER PRESS OPERATOR Pre-Sedation Note. IV ACCESS:Right subc PAC. BASELINE VS: See Sedation Flow Sheet. Tracie Ocampojulita Farah [id number] 1990, presents to clinic for: Procedure: left [...] started. 1530 Midazolam 2mg IV given 1530 [id number] mcg IV given 1534 Midazolam 1mg IV given 1546 Midazolam 1mg IV given 1546 [id number] mcg IV given 1548 Fentanyl 100 mcg IV given bupivacaine 0.5%, 9mL given, 21mL wasted Kenalog 40mg/mL 1mL, 0 mL wasted 1555 abdominal scar trigger point completed. 1558 Fentanyl 50 mcg IV given 1601 Fentanyl 50 mcg IV given [place] placed for Popliteal Nerve Block.. Placement verified [...] + +--------+ + + + | FL INJECT NERV | Routin | 12/27/2017 | Complex regional | | | BLCK,OT PERIPH | e | 4:32 PM | pain syndrome type 1 | | | NERV | | PST | of left lower | | | | | | extremity | | + +--------+ + + + | FL ROPIVACAINE HCL | Routin | 12/27/2017 | Complex regional | | | INJ 0.5% | e | 4:32 PM | pain syndrome type 1 | | | | | PST | of left lower | | | | | | extremity | | + +--------+ + + + | FL MOD SEDATION | Routin | 12/27/2017 | Complex regional | | | >=5YRS SAME MD/QUAL | e | 4:32 PM | pain syndrome type 1 | | | PROV; INIT 15 MIN | | PST | of left lower | | | | | | extremity | | + +--------+ + + + documented in this encounter Results SUGAR COATING HAND MISC PROCEDURE (12/27/2017 3:28 PM PST) + [...]
--- OUTSIDE RECORDS SUMMARY | ~2019-08-12 | XMS | Encounter Summary ---
Demographics + + + | Address | [address] | | | [place] [address] | + + + | Home Phone [...] Team Providers + +------+ + | Care Wetland Scientist Name | Role | Phone | [...] + + | 08/03/ | Refill | [facility] | Alex Sanchez, | Refill Request | | 2018 | | Pain Center at | ,PhD [address] | (ketamine) | | | | [facility] | [facility] | | | | | [address] | [place], [place] | | | | | Mailcode: CH15P | [address] | | | | | [facility] | [phone] | | | | | and [address], | | | | | | Building | | | | | | Floor [place], [place] | | | | | | [address] | | | | | | [phone] | | | +--------+--------+ + + + [...]
--- OUTSIDE RECORDS SUMMARY | ~2019-08-12 | XMS | Encounter Summary ---
Demographics + + + | Address | [address] | | | [place] [address] | + + + | Home Phone [...] Team Providers + +------+ + | Care Rate Reviewer Name | Role | Phone | + +------+ + | Justo Vazquez MD | PCP | | + +------+ + Encounter Details +--------+ + + + + | Date | Type | Department | Care Team | Description | +--------+ + + + + | 07/26/ | MyChart | [facility] | Ilene Bright, | Labs | | 2017 | Encounter | Pain Center at | TEAM SUPERVISOR [address] | | | | | [facility] | Ave [place], [place] | | | | | [address] | [address] | | | | | Mailcode: CH15 | [phone] | | | | | [facility] | | | | | | and Healing, | | | | | | | | | | | | [place], [place] | | | | | | [address] | | | | | | [phone] | | | +--------+ + + + [...]
--- OUTSIDE RECORDS SUMMARY | ~2019-08-12 | XMS | Encounter Summary ---
Demographics + + + | Address | [address] | | | [place] [address] | + + + | Home Phone [...] Team Providers + +------+ + | Care Photoengraving Finisher Name | Role | Phone | + +------+ + | Justo Vazquez MD | PCP | | + +------+ + Encounter Details +--------+ + + + + | Date | Type | Department | Care Team | Description | +--------+ + + + + | 12/28/ | Education Diagnostician | [facility] Comprehensive | Alex Sanchez, | Arthralgia of lower | | 2018 | | Pain Center at | ,PhD [address] | leg, unspecified | | | | [facility] | [address] | laterality (Primary | | | | [address] | [place], [place] | Dx) | | | | Mailcode: CH15P | [address] | | | | | [place] for [facility] | [phone] | | | | | and Healing, | | | | | | [facility] | | | | | | Floor [place], [place] | | | | | | [address] | | | | | | [phone] | | | +--------+ + + + [...]
--- OUTSIDE RECORDS SUMMARY | ~2019-08-12 | XMS | Encounter Summary ---
Demographics + + + | Address | [address] | | | [place] [address] | + + + | Home Phone [...] Team Providers + +------+ + | Care Curb Machine Operator Name | Role | Phone [...] Pain Medicine | Diagnoses | Chasity, | Fish Grader Chh1 | | | | / Pain | Abdominal | MD Kenny | [address] | | | | Management | pain, | [address] | Ave | | | | | unspecified | [address] | Mailcode: | | | | | location | Rd | CH15P Center | | | | | Procedures | [place], [place] | for Health | | | | | CONSULT TO | [address] | and Healing, | | | | | PAIN | Phone: | Building | | | | | MANAGEMENT | [phone] | 1,15th Floor | | | | | | Fax: | [place], [place] | | | | | | [phone] | [address] | | | | | | | Phone: | | | | | | | [phone] | | | | | | | Fax: | | | | | | | [phone] | +--------+--------+ + + + + Reason [...] MD | Lab Order; Abdominal | | 2017 | | Center at [facility] [address] | [address] | pain | | | | [address] | Giuliana Maldonado [place], | | | | | Mailcode: [place] | [place] [address] | | | | | for Health and | [phone] | | | | | [address] [address] | | | | | | [place], [place] | | | | | | [address] | | | | | | [phone] | | | +--------+ + + + [...]
--- OUTSIDE RECORDS SUMMARY | ~2019-08-12 | XMS | Encounter Summary ---
Demographics + + + | Address | [address] | | | [place] [address] | + + + | Home Phone [...] Team Providers + +------+ + | Care Court Deputy Name | Role | Phone | + +------+ + | Justo Vazquez MD | PCP | | + +------+ + Encounter Details +--------+ + + + + | Date | Type | Department | Care Team | Description | +--------+ + + + + | 06/04/ | Documentati | [facility] | Alex Sanchez, | | | 2019 | on | Pain Center at | ,PhD [address] | | | | | [facility] | [address] | | | | | [address] | [place], [place] | | | | | Mailcode: CH15P | [address] | | | | | [place] for [facility] | [phone] | | | | | and Healing, | | | | | | | | | | | | Floor [place], [place] | | | | | | [address] | | | | | | [phone] | | | +--------+ + + + [...]
--- OUTSIDE RECORDS SUMMARY | ~2019-08-12 | XMS | Encounter Summary ---
Demographics + + + | Address | [address] | | | [place] [address] | + + + | Home Phone [...] Providers + +------+ + | Care Extrusion Die Repairer Name | Role | Phone | [...] pain, | [address] | ,PhD [address] | | | | | unspecified | [facility] | [address] | | | | | location | Rd | [facility] | | | | | Procedures | [place], [place] | Rd [place], | | | | | CONSULT TO | [address] | [place] | | | | | PAIN | Phone: | [address] | | | | | MANAGEMENT | [phone] | Phone: | | | | | | Fax: | [phone] | | | | | | [phone] | Fax: | | | | | | | [phone] | +--------+--------+ + + + + Encounter Details +--------+---------+ + + + | Date | Type | Department | Care Team | Description | +--------+---------+ + + + | 05/08/ | Office | [facility] | Alex Sanchez, | Complex regional | | 2018 | Visit | Pain Center at | ,PhD [address] | pain syndrome type 1 | | | | [place] | [address] | of left lower | | | | [address] | [place], [place] | extremity (Primary | | | | Mailcode: CH15P | [address] | Dx); Pain of upper | | | | [facility] | [phone] | abdomen; Intractable | | | | and Healing, | | cyclical vomiting | | | | Building 15 | | with nausea; | | | | Floor [place], [place] | | Disturbance in sleep | | | | [address] | | behavior; Abdominal | | | | [phone] | | scar neuroma | +--------+---------+ + [...] the time to see us in the [facility]. It was [...] MD,P hD - 05/08/2018 10:30 AM PDT [facility] Return Visit Date: 05/08/2018 Chief Complaint Patient presents with Ankle pain Left Foot pain Left History of Present Illness: Tracie Farha is a 27 year old female, whose last appoi ntment at the [facility] was April 19, [...] time that 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 LANDING SIGNAL OFFICER Brief Pain Inventory: (ten= worst possible pain [...] Hemroidectomy Trial spinal cord stimulator leads 08/02/2012 . [facility], Surgeon: Janak Riojas MD Cholecystectomy [...] History Social History Narrative Single. Goes to [employer] with a light load. Has been working at [employer], can' t work on [employer]. Has roommates. Allergies Allergen Reactions Morphine Anaphylaxis [...] by physician. Concentration is 150mg/mL. Compounded by [employer] ) KETOROLAC IM Inject into the muscle [...] GRAM SOLUTION Take as directed by [facility]- 2 gallon bowel prep POLYETHYLENE [...] and summary of old medical records (source: [facility]), as summarized in the body of the [...] pain flares including her latest episode w ith Haldol. In regards to her ongoing pain, I [...] updated today with recent adverse reaction to Haldol - Consider seeing orthopedic surgeon who is [...] by Sonia Key. Alex Sanchez MD PhD Hotel Houseman Anesthesiology and Pain Management [facility] documented in this encounter Plan of Treatment [...]
--- OUTSIDE RECORDS SUMMARY | ~2019-08-12 | XMS | Encounter Summary ---
Demographics + + + | Address | [address] | | | [place] [address] | + + + | Home Phone [...] Team Providers + +------+ + | Care Tank Assembler Name | Role | Phone | + +------+ + | Justo Vazquez MD | PCP | | + +------+ + Encounter Details +--------+ + + + + | Date | Type | Department | Care Team | Description | +--------+ + + + + | 01/02/ | Telephone | [facility] | Ilene Bright, | | | 2019 | | Pain Center at | POLICY VALUE CALCULATOR [address] | | | | | [facility] | Ave [place], [place] | | | | | [address] | [address] | | | | | Mailcode: CH15P | [phone] | | | | | [facility] | | | | | | and Healing, | | | | | | | | | | | | [place], [place] | | | | | | [address] | | | | | | [phone] | | | +--------+ + + + [...]
--- OUTSIDE RECORDS SUMMARY | ~2019-08-12 | XMS | Encounter Summary ---
Demographics + + + | Address | [address] | | | [place] [address] | + + + | Home Phone [...] Team Providers + +------+ + | Care Communications Instructor Name | Role | Phone | [...] | Diagnoses | Beulah | Edu Pt Card Player | | | | Therapy | CRPS | Janak Martinez MD | Chh1 [address] | | | | | (complex | [address] | | | | | regional | [address] | Mailcode: | | | | | pain | Mailstop | [facility] | | | | | syndrome), | [id number] | for Health | | | | | lower limb | [place], [place] | and Healing, | | | | | Gait | [address] | Building 1 | | | | | disturbance | Phone: | [place], [place] | | | | | Muscle pain | [phone] | [address] | | | | | Procedures | Fax: | Phone: | | | | | PHYSICAL | [phone] | [phone] | | | | | THERAPY | [...] | | | [place] | Ave [place], [place] | syndrome), lower | | | | [address] | [phone] | limb (Primary Dx) | | | | Mailcode: CH3P | | | | | | [facility] | | | | | | and Healing, | | | | | | Building [address] | | | | | | Floor [place], [place] | | | | | | [address] | | | | | | [phone] | | | +--------+---------+ + + + [...] might be different f rom the original. [id number] BRODY FARAH Date of : 1990 Start of care: 02/14/2012 Date of onset: 02/14/2012 Referring/Attending Practitioner: Janak Riojas MD . Primary/Referral Diagnosis/ICD-9: 355.71B CRPS (complex regional pain syndrome), lower limb Insurance: Payor: [facility] Plan: BCBS OUT OF STATE Product Type: PP O Service period from: 02/14/2012 to: 08/12/2012 Number visits used/authorized: 03/25 [facility] PHYSICAL THERAPY PROGRESS NOTE SUBJECTIVE: [...] change in their status. Guillermo Sanon MSPT [facility] Outpatient Rehabilitation Services Mailcode: Ch3p [address] [facility], [address] [place] [address] documented in this encounter Plan of Treatment Not on filedocumented as of this encounter Procedures + +--------+ + + + | Procedure Name | Priori | Date/Time | Associated Diagnosis | Comments | | | ty | | | | + +--------+ + + + | ND MANUAL THER | Routin | 06/05/2012 | CRPS (complex | | | TECH,1+REGIONS,EA 15 | e | 5:15 PM | regional pain | | | MIN | | PDT | syndrome), lower | | | | | | limb | | + +--------+ + + + | ND THERAPEUTIC | Routin | 06/05/2012 | CRPS [...]
--- OUTSIDE RECORDS SUMMARY | ~2019-08-12 | XMS | Encounter Summary ---
Demographics + + + | Address | [address] | | | [place] [address] | + + + | Home Phone [...] Providers + +------+ + | Care Salesperson Household Appliances Name | Role | Phone | + [...] + + | 08/07/ | Refill | [facility] Comprehensive | Alex Sanchez, | Refill Request | | 2018 | | Pain Center at | ,PhD [address] | | | | | [facility] | [address] | | | | | [address] | [place], [place] | | | | | Mailcode: CH15 | [address] | | | | | [facility] | [phone] | | | | | and Martina, | | | | | | Building | | | | | | Floor [facility] [place] | | | | | | [address] | | | | | | [phone] | | | +--------+--------+ + + + [...]
--- OUTSIDE RECORDS SUMMARY | ~2019-08-12 | XMS | Encounter Summary ---
Demographics + + + | Address | [address] | | | [place] [address] | + + + | Home Phone [...] Team Providers + +------+ + | Care Microarray Specialist Name | Role | Phone | + +------+ + | Allegra Gandhi | PCP | | + +------+ + Encounter Details +--------+ + + + + | Date | Type | Department | Care Team | Description | +--------+ + + + + | 08/02/ | Results | [facility] | Janak Riojas, | | | 2011 | Only | Pain Center at | MD [address] [facility] [address] [facility] | | | | | [facility] | [facility] [id number] | | | | | [address] | [place], [place] | | | | | Mailcode: CH15P | [address] | | | | | [place] for [facility] | [phone] | | | | | and Martina, | | | | | | | | | | | | Floor [place], [place] | | | | | | [address] | | | | | | [phone] | | | +--------+ + + + [...]
--- OUTSIDE RECORDS SUMMARY | ~2019-08-12 | XMS | Encounter Summary ---
Demographics + + + | Address | [address] | | | [place] [address] | + + + | Home Phone [...] Team Providers + +------+ + | Care Film Library Clerk Name | Role | Phone | [...] | | | | regional | ,PhD [address] | | | | | | pain | [address] | | | | | | syndrome | [address] | | | | | | type 1 of | Rd | | | | | | left lower | [place], [place] | | | | | | extremity | [address] | | | | | | Procedures | Phone: | | | | | | CONSULT TO | [phone] | | | | | | ORTHOPEDICS | Fax: | | | | | | AND | [phone] | | | | | | REHABILITATI | | | | | | | ON | | | +--------+--------+ + + + + Encounter Details +--------+ + + + + | Date | Type | Department | Care Team | Description | +--------+ + + + + | 06/08/ | Asbestos Hazard Abatement Worker | [facility] | Alex Sanchez, | Complex regional | | 2018 | | Pain Center at | ,PhD [address] [facility] | pain syndrome type 1 | | | | [facility] | [facility] [address] | of left lower | | | | [address] | [place], [place] | extremity (Primary | | | | Mailcode: CH15P | [address] | Dx) | | | | [place] for [facility] | [phone] | | | | | and Healing, | | | | | | | | | | | | Floor [facility] [place] | | | | | | [address] | | | | | | [phone] | | | +--------+ + + + [...]
--- OUTSIDE RECORDS SUMMARY | ~2019-08-12 | XMS | Encounter Summary ---
Demographics + + + | Address | [address] | | | [place] [address] | + + + | Home Phone [...] Team Providers + +------+ + | Care Yarn Packer Name | Role | Phone | + +------+ + | Justo Vazquez MD | PCP | | + +------+ + Encounter Details +--------+ + + + + | Date | Type | Department | Care Team | Description | +--------+ + + + + | 09/25/ | Hospital | Radiology/Imaging | Aleta Rebollar MD 6[address] | | | 2018 | Encounter | Lab at [facility] [address] | [address] | | | | | [address] Mailcode: | [facility] [place] | | | | | [address] | [address] | | | | | Health and Healing, | [phone] | | | | | [facility] | | | | | | Floor [place], [place] | | | | | | [address] | | | | | | [phone] | | | +--------+ + + + [...]
--- OUTSIDE RECORDS SUMMARY | ~2019-08-12 | XMS | Encounter Summary ---
Demographics + + + | Address | [address] | | | [place] [address] | + + + | Home Phone [...] Team Providers + +------+ + | Care Card Grader Name | Role | Phone | + [...] + + | 12/05/ | Hospital | [facility] | Alex Sanchez, | | | 2019 | Encounter | [place] [address] | ,PhD [address] | | | | | [place] Mailcode: [facility] | [address] | | | | | [facility] | [place], [place] | | | | | Health and [facility], | [address] | | | | | [place] [address] | [phone] | | | | | [place], [place] | | | | | | [address] | | | | | | [phone] | | | +--------+ + + + [...] s/p successful DRG trial lead system with [employer] System on 09/25/2018. No changes in H&P, [...] OPERATIVE NOTE Date: December 05, 2018 Location: [facility] [place] | | | Tracie Farah [id number] :1990, presents to clinic | | | for: Dorsal root ganglion stimulator implant PROCEDURE: Dorsal | | | root ganglion stimulator implant PRE-OPERATIVE DIAGNOSIS: Complex | | | regional Pain syndrome type 1 of left lower extremity | | | POST-OPERATIVE DIAGNOSIS: Complex regional Pain syndrome type 1 of | | | left lower extremity ATTENDING PHYSICIAN: Alex Sanchez | | | COLUMN PRECASTER: Arben Valerio MD ANESTHESIA: sedation by IVIS Cole | | | Carmen, supervised by clinical applications specialist Ilir Valdes. | | | FINDINGS: Appropriate spread of IV contrast in the location of the | | | stellate ganglia without vascular or epidural uptake. IV Fluids: | | | per anesthesia record Estimated Blood Loss: minimal Drains, | | | Specimens, Complications: None INDICATIONS: Tracie Donaldson | | | Sofi has a history of Complex regional Pain syndrome type 1 | | | of left lower extremity. I reviewed the Registered Nurse's | | | pre-sedation report and agree to the plan. The patient was deemed an | | | appropriate candidate to undergo the planned procedure. ASA | | | Physical Status 2. PROCEDURE IN DETAIL: Prior to the procedure, | | | I had a PARQ discussion with Tracie Farah, and she gave | | | written consent for procedure and sedation. Ms. Farah was | | | escorted to the [facility] [place], where she was positioned Prone on the | | | examination table. TEAM PAUSE: The physician-led pause was | | | conducted, and is documented in the Nursing note. Monitors were | | | placed, including ECG, NIBP and SpO2. The skin was prepared with | | | Chloroprep and sterile drapes were applied. The patient was | | | positioned supine, and the L4 and L5 vertebral bodies were | | | identified in the AP view. DESCRIPTION: DUAL LEAD ARRANGEMENT (2 | | | LEADS) , 4 CONTACT LEAD LEFT L4 PLACEMENT FOR SPINAL MODULATION OF | | | DRG AT L4 LEFT L5 PLACEMENT FOR SPINAL MODULATION OF DRG AT L5 2 | | | PREPACKAGED SHEATHS WERE USED TO AID IN PLACEMENT OF THE 2 LEADS | | | OPERATIVE PROCEDURE: Pt was brought to the operating room and was | | | placed in the prone position. Pt was then prepped and draped in the | | | usual sterile fashion with DURAPREP AND CHLORHEXIDINE . A | | | pocket site was identified just above the right iliac crest. Local | | | anesthetic consisting of a 50:50 mixture of 2% Lidocaine and 1 : | | | 200,000 epinephrine and bupivacaine 0.5% was administered in the | | | region and a 5 centimeter incision was made. A subcutaneous pocket | | | was then created with a blunt dissection technique and | | | electrocautery for placement of the [facility] | | | implantable pulse generator. With fluoroscopic guidance the | | | location of the desired site for placement of the percutaneous leads | | | was identified (the target being left L4 neuroforamen) and local | | | anesthetic was injected subcutaneously over the area. A 25G spinal | | | needle was used to infiltrate the path of the Tuohy needle. A | | | right para-median, antegrade approach using a 14G Tuohy needle was | | | used, aiming the tip of the needle to midline of the interlaminar | | | window of the L4/L5 space. The needle tip was also directed to aim | | | towards the left L4 foramen. Then loss of resistance to air | | | technique was used to enter the epidural space with negative | | | aspiration for blood or CSF. The lead was then loaded onto a | | | prepacked sheath which was reintroduced through the needle. The | | | sheath and the lead were advanced towards the superior part of the | | | left L4 foramen, under the left L4 pedicle where the DRG - Dorsal | | | Root Ganglion - for that level resides. The lead was introduced | | | about 2 cm outside the foramen to make sure the path was free of any | | | obstruction . Resistance was not encountered. The lead was | | | introduced so as to have at least [...] to the | | | [employer] outside energy sales representatives. A test stimulation was performed and [...] recovery. Images were saved, and sent to [facility]. | | | Alex Sanchez (attending) was present for the entire procedure. | | | Arben Valerio MD I was present for the entire procedure | | | (spinal cord stimulator implantation with DRG leads at left L4 and | | | L5) and all bocanegra elements of this visit. I reviewed the | | | documentation of the other PACKAGE LINE RELIEF OPERATOR providers and concur with | | | Iman's findings. I edited his note. Alex Sanchez, | | | ,PhD Sales Ledger Clerk Anesthesiology and Pain Management | | | [facility] | | + + + HCG [...] + + + + + | KEVIN - JOSE ANTONIO PULIDO | [address] | [place] [address] | | | OF CARE TESTS | [...] | | | | | CONTINUOUS, Starting Tu12/05/18 | anesthes | AM PST | | [...] subcutaneous, | | | PREPROCEDURE PRN, Starting e | | | 12/05/18 at 0614, Until [...]
--- OUTSIDE RECORDS SUMMARY | ~2019-08-12 | XMS | Encounter Summary ---
Demographics + + + | Address | [address] | | | [place] [address] | + + + | Home Phone [...] Providers + +------+ + | Care Tank Refinisher Name | Role | Phone | + [...] [address] | | | | | [facility] | [facility] | | | | | [address] | [place] [address] | | | | | Mailcode: CH15P | [phone] | | | | | [facility] | | | | | | joana Mack, | | | | | | Building | | | | | | [place], [place] | | | | | | [address] | | | | | | [phone] | | | +--------+ + + + [...]
--- OUTSIDE RECORDS SUMMARY | ~2019-08-12 | XMS | Encounter Summary ---
Demographics + + + | Address | [address] | | | [place] [address] | + + + | Home Phone [...] Team Providers + +------+ + | Care Fireworks Maker Name | Role | Phone | [...] | | 2017 | | Center at [facility] [address] | [address] | | | | | [address] | [place] [facility], | | | | | Mailcode: Center | [place] [address] | | | | | for Health and | [phone] | | | | | [facility] [address] | | | | | | [place], [place] | | | | | | [address] | | | | | | [phone] | | | +--------+ + + + [...]
--- OUTSIDE RECORDS SUMMARY | ~2019-08-12 | XMS | Encounter Summary ---
Demographics + + + | Address | [address] | | | [place] [address] | + + + | Home Phone [...] Team Providers + +------+ + | Care Installation Service Representative Name | Role | Phone | [...] | | Pain Center at | [address] [facility] | | | | | [facility] | [address] [id number] | | | | | [address] | [place], [place] | | | | | Mailcode: [facility] | [address] | | | | | [facility] | [phone] | | | | | and Healing, | | | | | | [facility] | | | | | | [place], [place] | | | | | | [address] | | | | | | [phone] | | | +--------+ + + + [...]
--- OUTSIDE RECORDS SUMMARY | ~2019-08-12 | XMS | Encounter Summary ---
Demographics + + + | Address | [address] | | | [place] [address] | + + + | Home Phone [...] Team Providers + +------+ + | Care Rock Loader Name | Role | Phone | + +------+ + | Justo Vazquez MD | PCP | | + +------+ + Encounter Details +--------+ + + + + | Date | Type | Department | Care Team | Description | +--------+ + + + + | 12/07/ | Pharmacy | [facility] | | | | 2019 | Visit | & [facility]acy | | | | | | [address] | | | | | | Mailcode: North | | | | | | [facility] and | | | | | | Healing, Building [address] | | | | | | [place], [place] | | | | | | [address] | | | | | | [phone] | | | +--------+ + + + [...]
--- OUTSIDE RECORDS SUMMARY | ~2019-08-12 | XMS | Encounter Summary ---
Demographics + + + | Address | [address] | | | [place] [address] | + + + | Home Phone [...] Team Providers + +------+ + | Care Model Technician Name | Role | Phone | [...] | CRPS | Janak Martinez MD | [facility] [address] | | | | | (complex | [address] | [address] | | | | | regional | [address] | [address] | | | | | pain | Mailstop | Mailcode: | | | | | syndrome), | [id number] | [address] | | | | | lower limb | [place], [place] | [address] | | | | | Procedures | [address] | [place], [place] | | | | | [place] | Phone: | [address] | | | | | JOINT | [phone] | Phone: | | | | | IMAGING 3 | Fax: | [phone] | | | | | PHASE | [phone] | Fax: | | | | | | | [phone] | +--------+--------+ + + + + Reason for Visit Diagnostic Testing (Routine) +--------+--------+ + + + + | Status | Reason | Specialty | Diagnoses / | Referred By | Referred To | | | | | Procedures | Contact | Contact | +--------+--------+ + + + + | Closed | | Radiology | Diagnoses | Beulah, | Rad Nuc Med | | | | | CRPS | Janak Martinez MD | [facility] [address] | | | | | (complex | [address] | [address] | | | | | regional | [address] | [address] | | | | | pain | Mailstop | Mailcode: | | | | | syndrome), | [address] | [address] | | | | | lower limb | [place], [place] | [address] | | | | | Procedures | [address] | [place], [place] | | | | | [place] | Phone: | [address] | | | | | JOINT | [phone] | Phone: | | | | | IMAGING 3 | Fax: | [phone] | | | | | PHASE | [phone] | Fax: | | | | | | | [phone] | +--------+--------+ + + + + Encounter Details +--------+ + + + + | Date | Type | Department | Care Team | Description | +--------+ + + + + | 02/13/ | Hospital | Nuclear Medicine | | | | 2011 | Encounter | at [facility] [address] | | | | | | [address] | | | | | | Mailcode: [address] | | | | | | [address] | | | | | | [place], [place] | | | | | | [address] | | | | | | [phone] | | | +--------+ + + + [...]
--- OUTSIDE RECORDS SUMMARY | ~2019-08-12 | XMS | Encounter Summary ---
Demographics + + + | Address | [address] | | | [place] [address] | + + + | Home Phone [...] Team Providers + +------+ + | Care Resident Hall Director Name | Role | Phone | + +------+ + | Justo Vazquez MD | PCP | | + +------+ + Encounter Details +--------+ + + + + | Date | Type | Department | Care Team | Description | +--------+ + + + + | 03/08/ | Hospital | Radiology/Imaging | Ranjeet Amanda, | | | 2018 | Encounter | Lab at [facility] [address] | [address] | | | | | [address] Mailcode: | [place], [place] | | | | | [facility] | [address] | | | | | and Martina, | [phone] | | | | | | | | | | | Floor [place], [place] | | | | | | [address] | | | | | | [phone] | | | +--------+ + + + [...]
--- OUTSIDE RECORDS SUMMARY | ~2019-08-12 | XMS | Encounter Summary ---
Demographics + + + | Address | [address] | | | [place] [address] | + + + | Home Phone [...] Team Providers + +------+ + | Care Bakery Team Leader Name | Role | Phone | + +------+ + | Justo Vazquez MD | PCP | | + +------+ + Encounter Details +--------+ + + + + | Date | Type | Department | Care Team | Description | +--------+ + + + + | 07/30/ | Telephone | [facility] | Alex Sanchez, | | | 2019 | | Pain Center at | ,PhD [address] | | | | | [facility] | [facility] | | | | | [address] | [place], [place] | | | | | Mailcode: CH15P | [address] | | | | | [place] for [facility] | [phone] | | | | | and Healing, | | | | | | | | | | | | Floor [place], [place] | | | | | | [address] | | | | | | [phone] | | | +--------+ + + + [...]
--- OUTSIDE RECORDS SUMMARY | ~2019-08-12 | XMS | Encounter Summary ---
Demographics + + + | Address | [address] | | | [place] [address] | + + + | Home Phone [...] Team Providers + +------+ + | Care Garage Manager Name | Role | Phone | [...] | Orthopedics | Diagnoses | Sdrulla, | [place], | | | | | Complex | Alex Alba, | Ranjeet Odom MD | | | | | regional | ,PhD [address] | [address] | | | | | pain | [address] | [address] | | | | | syndrome | [address] | [place], [place] | | | | | type 1 of | Rd | [address] | | | | | left lower | [place], [place] | Phone: | | | | | extremity | [address] | [phone] | | | | | Procedures | Phone: | Fax: | | | | | CONSULT TO | [phone] | [phone] | | | | | ORTHOPEDICS | Fax: | | | | | | AND | [phone] | | | | | | REHABILITATI [...] | ankle results) | | | | [facility] | [facility] | | | | | [address] | [place], [place] | | | | | Mailcode: CH15P | [address] | | | | | [facility] | [phone] | | | | | and Healing, | | | | | | Building | | | | | | Floor [place], [place] | | | | | | [address] | | | | | | [phone] | | | +--------+ + + + [...]
--- OUTSIDE RECORDS SUMMARY | ~2019-08-12 | XMS | Encounter Summary ---
Demographics + + + | Address | [address] | | | [place] [address] | + + + | Home Phone [...] Team Providers + +------+ + | Care Soaker Meat Name | Role | Phone | + +------+ + | Allegra Chaudhary | PCP | Unavailable | + +------+ + Encounter Details +--------+ + + + + | Date | Type | Department | Care Team | Description | +--------+ + + + + | 09/15/ | Documentati | Digestive Health | Bruna Quinones, | | | 2016 | on | Center at [facility] [address] | [address] | | | | | [address] | [place], [place] | | | | | Mailcode: Center | [address] | | | | | for Health and | [phone] | | | | | [facility], [address] | | | | | | [place], [place] | | | | | | [address] | | | | | | [phone] | | | +--------+ + + + [...]
--- OUTSIDE RECORDS SUMMARY | ~2019-08-12 | XMS | Encounter Summary ---
Demographics + + + | Address | [address] | | | [place] [address] | + + + | Home Phone [...] Team Providers + +------+ + | Care Investigation Lieutenant Name | Role | Phone | [...] + + | 01/13/ | Telephone | [facility] | Alex Sanchez, | Follow-up Plan | | 2018 | | Pain Center at | ,PhD [address] | (ortho question) | | | | [facility] | [facility] | | | | | [address] | [place], [place] | | | | | Mailcode: CH15P | [address] | | | | | [facility] | [phone] | | | | | and Healing, | | | | | | Building | | | | | | [place], [place] | | | | | | [address] | | | | | | [phone] | | | +--------+ + + + [...]
--- OUTSIDE RECORDS SUMMARY | ~2019-08-12 | XMS | Encounter Summary ---
Demographics + + + | Address | [address] | | | [place] [address] | + + + | Home Phone [...] Providers + +------+ + | Care Traffic Warehouse Supervisor Name | Role | Phone | + +------+ + | Justo Vazquez MD | PCP | | + +------+ + Encounter Details +--------+ + + + + | Date | Type | Department | Care Team | Description | +--------+ + + + + | 06/07/ | Telephone | [facility] | Alex Sanchez, | | | 2019 | | Pain Center at | ,PhD [address] | | | | | [facility] | [facility] [address] | | | | | [address] | [place], [place] | | | | | Mailcode: CH15P | [address] | | | | | [place] for [facility] | [phone] | | | | | and Healing, | | | | | | | | | | | | Floor [facility] [place] | | | | | | [address] | | | | | | [phone] | | | +--------+ + + + [...]
--- OUTSIDE RECORDS SUMMARY | ~2019-08-12 | XMS | Encounter Summary ---
Demographics + + + | Address | [address] | | | [place] [address] | + + + | Home Phone [...] Providers + +------+ + | Care Automatic Casting Machine Operator Name | Role | Phone [...] | | | regional | [address] | [address] | | | | | pain | FAMILY | Mailstop | | | | | syndrome), | MEDICINE P | [address] | | | | | lower limb | [address] | [place], [place] | | | | | Pain in | [place], | [address] | | | | | joint, lower | [place] [address] | Phone: | | | | | leg | Phone: | [phone] | | | | | Procedures | [phone] | Fax: | | | | | REQUEST TO | Fax: | [phone] | | | | | SURGERY | [phone] | | | | | | COMPOSITION ROOFER | | | +--------+--------+ + + + + Encounter Details +--------+ + + + + | Date | Type | Department | Care Team | Description | +--------+ + + + + | 08/02/ | Procedure | Pain Center at [facility] | Dale Cantu, | Procedure; | | 2011 | | 15th Floor [address] | MD [address] | Injection; Procedure | | | | [address] Mailcode: | Mailstop [id number] | | | | | CH15P [facility] | [place], [place] | | | | | Health and Healing, | [address] | | | | | [facility] | [phone] | | | | | Floor [place], [place] | | | | | | [address] | | | | | | [phone] | | | +--------+ + + + [...] in this encounter Patient Instructions Patient Instructions KristaBear manriquez, DO - 08/02/2012 6:34 AM PDTFormatting of this not e might be different from the original. [facility] Patient Instructions - Post Spinal Cord Stimulator Trial Date: 08/02/2012 Name: Tracie Farah Date of : 1990 Procedure Performed: SCS TRIAL LUMBAR [facility] Procedure Provider: Dale Cnatu [facility] Procedure Rm If you have any problems you believe are associated with your procedure tonight, Please call the Hospital Culinary Arts Teacher, and ask for the Pain Management Consu ltant. If you have problems or questions between 9:00 am and 4:00 pm, Please call the [facility] Nurse Triage Line, . If you go to an Emergency Room, please bring this form with you. DISCHARGE INSTRUCTIONS Call immediately and/or go to the Emergency department if any concerns about wound healing, fever, or chills. Also call for concerns about SCS function. During [employer] open hours, call the [employer] ([phone]), after hours call the grease refiner operator at [facility] ([phone]) and ask for t Adult Pain Service media relations intern. Identify yourself as a Comprehensive Pain Center [...] the wounds, dressing, or SCS function. During QUALITY WORKER o pen hours, call the QUALITY WORKER ([phone]), after hours call the grease refiner operator at [facility] ([phone] ) and ask for the Adult Pain Service media relations intern. Identify yourself as my patient with a concer n about postoperative recovery. If there are concerns about the SCS programming, contact t he access services representative from the SCS mutual fund manager. If the stimulation is not covering your area o f pain, your SCS should be reprogrammed. Do not take any blood thinning medications during the trial. Instructions printed and reviewed with the patient. Copy of instructions given to Pj Nemo víctor. DALE CANTU MD [facility] documented in this encounter [...] and postoperative care instructions. DALE CANTU MD Plasterer Tender, [facility] Cotton Grower, Pain Medicine Professor, Anesthesiology & Perioperative Medicine Diana Arroyo RN - 08/02/2012 7:34 AM PDT PRE-SEDATION: Date: August 02, 2012 Tracie Farah [id number] 1990 ALLERGIES: Morphine Previous reaction to Sedation/Analgesia: MEDICATIONS: Current Outpatient Prescriptions Medication HYDROcodone-acetaminophen (NORCO) 10-325 mg Oral Tablet KETOROLAC TROMETHAMINE (TORADOL IM) levonorgestrel (MIRENA) 20 mcg/24 hr Intrauterine IUD LORazepam 1 mg Oral Tablet ondansetron (ZOFRAN) 8 mg Oral Tablet promethazine 25 mg Oral Tablet Meets NPO Guidelines. IV ACCESS: IV in Place IV Site [facility] 22 g @ 0655 BASELINE VS: See Sedation Flow Sheet. Tracie Donaldson [facility] [id number] 1990, presents to clinic for: Procedure: Spinal [...] 0732 - 0733: Midazolam 2 [place] [address]: Fentanyl 25 mcg IV 0740 - 0741: Midazolam 2 mg IV 0742: Procedure started 0743 - 0744: Fentanyl 50 mcg IV 0753-54: Fentanyl 25 mcg IV Lead # 1 placed Lead # 2 placed 0801: Stimulation started. 0829: Pt reports stimulation to usual areas of pain. Leads secured. 0845: [facility] in [facility] condition. IV dc'd. IssaEvelia - Dallin 08/02/2012 6:40 AM PDTCMA History: 1. Has [...] physical activity and social with drawal Bear Ward, - 08/02/2012 6:35 AM PDTPROVICHIOMA OPERATIVE NOTE Date: August 02, 2012 Location: [employer] Procedure Room Tracie Farah [id number] :1990, presents to clinic for: PROCEDURE: Spinal Cord Stimuation Trial LEVEL/LATERALITY: midline lumbar PRE-OPERATIVE DIAGNOSIS: 355.71B CRPS (complex regional pain syndrome), lower limb 719.46 Pain in joint, lower leg 781.2Q Gait disturbance POST-OPERATIVE DIAGNOSIS: 355.71B CRPS (complex regional pain syndrome), lower limb 719.46 Pain in joint, lower leg 781.2Q Gait disturbance ATTENDING PHYSICIAN: Dale Cantu MD HEALTHCARE SOCIAL WORKER: Fellow Bear Yost DO ANESTHESIA: sedation delivered [...] sedation. Ms. Farah was escorted to the [employer] Procedure Ro om, where she was positioned Prone on the examination table. TEAM PAUSE: The physician-led pause was conducted, and is documented in the Nursing note. Monitors were placed, including ECG, NIBP and SpO2. The skin was prepared with Chloroprep and sterile drapes were applied. St[facility] system was used for this procedure. The company access services representative was theresa knutson for the procedure. [...] pain. Ms. Farah was transported to the [facility] Pain Center post-procedure recovery area where she made an uneventful recovery. Images were saved, and sent to [employer]. Ms. Farah will have her next appointment [...] about wound healing or SCS function. During [employer] open hours, call the [employer] ([phone]), after h ours call the grease refiner operator at [facility] ([phone]) and ask for the Adult Pain Service media relations intern. Identify yourself as my patient with a [...] | + +--------+ + + + | OK PERCUT IMPLNT | Routin | 08/03/2012 | [...]
--- OUTSIDE RECORDS SUMMARY | ~2019-08-12 | XMS | Encounter Summary ---
Demographics + + + | Address | [address] | | | [place] [address] | + + + | Home Phone [...] Team Providers + +------+ + | Care Group Burner Machine Name | Role | Phone | [...] 2017 | | Center at [facility] [address] | [address] | pain | | | | [address] | [place], | | | | | Mailcode: [place] | [place] [address] | | | | | for Health and | [phone] | | | | | [place] [address] | | | | | | [place], [place] | | | | | | [address] | | | | | | [phone] | | | +--------+ + + + [...]
--- OUTSIDE RECORDS SUMMARY | ~2019-08-12 | XMS | Encounter Summary ---
Demographics + + + | Address | [address] | | | [place] [address] | + + + | Home Phone [...] Providers + +------+ + | Care Research Chef Name | Role | Phone | + [...]
--- OUTSIDE RECORDS SUMMARY | ~2019-08-12 | XMS | Encounter Summary ---
Demographics + + + | Address | [address] | | | [place] [address] | + + + | Home Phone [...] Team Providers + +------+ + | Care X Ray Inspector Name | Role | Phone | + +------+ + | Justo Vazquez MD | PCP | | + +------+ + Reason for Visit + + + | Reason | Comments | + + + | Vomiting | | + + + | Constipation | | + + + | Abdominal pain | | + + + Encounter Details +--------+ + + + + | Date | Type | Department | Care Team | Description | +--------+ + + + + | 06/20/ | Telephone | Digestive Health | Kenny Gaspar MD | Vomiting; | | 2017 | | Center at [address] | [address] | Constipation; | | | | [address] | [address] [place], | Abdominal pain | | | | Mailcode: [place] | [place] [address] | | | | | [facility] Health and | [phone] | | | | | [facility], [facility] 2 | | | | | | [place], [place] | | | | | | [address] | | | | | | [phone] | | | +--------+ + + + [...]
--- OUTSIDE RECORDS SUMMARY | ~2019-08-12 | XMS | Encounter Summary ---
Demographics + + + | Address | [address] | | | [place] [address] | + + + | Home Phone [...] Team Providers + +------+ + | Care Saw Tailer Name | Role | Phone | [...] Closed | | Pain | Diagnoses | Oksnaa, | Beulah, | | | | Management | CRPS | Allegra Nieto, | Dale Martinez MD | | | | | (complex | [place] | [address] | | | | | regional | [place] | [address] | | | | | pain | FAMILY | Mailstop | | | | | syndrome), | MEDICINE P | [address] | | | | | lower limb | [address] | [place], [place] | | | | | Gait | [place], | [address] | | | | | disturbance | [place] [address] | Phone: | | | | | Muscle pain | Phone: | [phone] | | | | | Procedures | [phone] | Fax: | | | | | REQUEST TO | Fax: | [phone] | | | | | SURGERY | [phone] | | | | | | CONTACT CLERK | | | +--------+--------+ + + + + Encounter Details +--------+ + + + + | Date | Type | Department | Care Team | Description | +--------+ + + + + | 03/01/ | Procedure | Pain Center at [facility] | Dale Cantu, | Foot pain (left); | | 2011 | | 15th Floor [address] | MD [address] | Procedure | | | | [address] Mailcode: | St Mailstop [id number] | | | | | CH15P [facility] | [place], [place] | | | | | Health and Healing, | [address] | | | | | [facility] | [phone] | | | | | Floor [place], [place] | | | | | | [address] | | | | | | [phone] | | | +--------+ + + + [...] this encounter Patient Instructions Patient Instructions Lakeisha Herring MD - 02/29/2012 5:44 PM PDTFormatting of this note migh t be different from the original. [facility] Patient Instructions - Post Interventional Procedure Date: 03/01/2012 Name: Tracie Farah Date of : 1990 Procedure Performed: LUMBAR SYMPATHETIC BLOCK. Procedure Provider: Dale Cantu If you have any problems you believe are associated with your procedure tonight, Please call the Hospital Grocery Deliverer, and ask for the Pain Management Consu ltant. If you have problems or questions between 9:00 am and 4:00 pm, Please call the [facility] Nurse Triage Line, . If [...] instructions given to the larry ent. LAKEISHA HERRING MD [facility] documented in this encounter Progress Notes Dale Cantu MD - 03/01/2012 2:21 PM PDTI was present for the entire procedure (lumbar sympathetic block) and all bocanegra elements of this visit. I reviewed the documentation of the other STAFF INTERNIST OFFICE BASED ONLY providers and concur with Dr. Herring's findings. I edited her note. Ms. Farah [...] benefit from multidisciplinary treatment. DALE CANTU MD Hydroblaster, [facility] Lieutenant/Deputy, Pain Medicine Professor, Anesthesiology & Perioperative Medicine NAEiDiana scott RN - 03/01/2012 1:35 PM PDT PRE-SEDATION: Date: March 01, 2012 Tracie Farah [id number] 1990 ALLERGIES: Morphine Previous reaction to Sedation/Analgesia: MEDICATIONS: Current Outpatient Prescriptions Medication DULoxetine (CYMBALTA) 30 mg Oral Capsule, Delayed Release(E.C.) HYDROcodone-acetaminophen (NORCO) 10-325 mg Oral Tablet levonorgestrel (MIRENA) 20 mcg/24 hr Intrauterine IUD LORazepam 1 mg Oral Tablet promethazine 25 mg Oral Tablet Meets NPO Guidelines. IV ACCESS: IV in Place IV Start Time 63146, 22g, DRH BASELINE VS: See Sedation Flow Sheet. Tracie Farah [id number] 1990, presents to clinic for: Procedure: Lumbar [...] ml. 1344: Procedure complete. Pt returned to [facility] per [facility] in stable condiotion. IV dc'd. Cece Arreola [...] OPERATIVE NOTE Date: March 01, 2012 Location: [facility] Procedure Room Tracie Donaldson [facility] [id number] :1990, presents to clinic for: PROCEDURE: Lumbar sympathetic block LEVEL/LATERALITY: left L3 PRE-OPERATIVE DIAGNOSIS: 355.71B CRPS (complex regional pain syndrome), lower limb 719.46 Pain in joint, lower leg POST-OPERATIVE DIAGNOSIS: 355.71B CRPS (complex regional pain syndrome), lower limb 719.46 Pain in joint, lower leg ATTENDING PHYSICIAN: Dale Cantu OIL PAINT SHADER: Fellow Lakeisha Herring MD ANESTHESIA: sedation delivered by Diana Fry [...] sedation. Ms. Farah was escorted to the [facility] Procedure Ro om, where she was [...] compromise. Ms. Farah was transported to the [facility] [...] block. Images were saved, and sent to [employer]. Ms. Farah will have her next appointment in 3 weeks for follow up with Dr. Cantu. She will maintain a pain diary for this procedure. Dale Cantu was present for the entire procedure. LAKEISHA HERRING MD documented in this en counter Plan of Treatment Not on filedocumented as of this encounter Procedures + +--------+ + + + | Procedure Name | Priori | Date/Time | Associated Diagnosis | Comments | | | ty | | | | + +--------+ + + + | [facility] INJECT NERV | Routin | 03/01/2012 | CRPS (complex | | | BLCK,PARAVERT | e | 2:20 PM | regional pain | | | SYMPATH | | PDT | syndrome), lower | | | | | | limb Pain in joint, | | | | | | lower leg | | + +--------+ + + + | [facility] LOCM 100-199 | Routin | 03/01/2012 | CRPS (complex | | | MG/MLICON | e | 1:53 PM | regional pain | | | | | PDT | syndrome), lower | | | | | | limb Pain in joint, | | | | | | lower leg | | + +--------+ + + + | [facility] INJ BUPIVACAINE | Routin | 03/01/2012 | [...]
--- OUTSIDE RECORDS SUMMARY | ~2019-08-12 | XMS | Encounter Summary ---
Demographics + + + | Address | [address] | | | [place] [address] | + + + | Home Phone [...] Team Providers + +------+ + | Care Coroner Technician Name | Role | Phone | + +------+ + | Justo Vazquez MD | PCP | | + +------+ + Encounter Details +--------+ + + + + | Date | Type | Department | Care Team | Description | +--------+ + + + + | 01/26/ | Document-Sc | Health Information | Unknown . | | | 2018 | anned | Services [address] | | | | | | [address] | | | | | | Mailcode: OP17A | | | | | | [facility] | | | | | | [place], [place] | | | | | | [address] | | | | | | [phone] | | | +--------+ + + + [...]
--- OUTSIDE RECORDS SUMMARY | ~2019-08-12 | XMS | Encounter Summary ---
Demographics + + + | Address | [address] | | | [place] [address] | + + + | Home Phone [...] Providers + +------+ + | Care Document Control Assistant Name | Role | Phone | + +------+ + | Justo Vazquez MD | PCP | | + +------+ + Encounter Details +--------+ + + + + | Date | Type | Department | Care Team | Description | +--------+ + + + + | 04/23/ | Pharmacy | [facility] | | | | 2019 | Visit | [facility] | | | | | | [address] | | | | | | Mailcode: [place] | | | | | | [facility] and | | | | | | Healing, [address] | | | | | | [place], [place] | | | | | | [address] | | | | | | [phone] | | | +--------+ + + + [...]
--- OUTSIDE RECORDS SUMMARY | ~2019-08-12 | XMS | Encounter Summary ---
Demographics + + + | Address | [address] | | | [place] [address] | + + + | Home Phone [...] Providers + +------+ + | Care Registered Nurse Nursery Name | Role | Phone | + [...] Rd | | | | | | [place], [place] | | | | | | [address] | | | +--------+ + + + [...]
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
--- OUTSIDE RECORDS SUMMARY | ~2019-08-12 | XMS | Encounter Summary ---
Demographics + + + | Address | [address] | | | [place] [address] | + + + | Home Phone [...] Team Providers + +------+ + | Care Ammonia Operator Name | Role | Phone | + +------+ + | Justo Vazquez MD | PCP | | + +------+ + Encounter Details +--------+ + + + + | Date | Type | Department | Care Team | Description | +--------+ + + + + | 12/07/ | Pharmacy | [facility] | | | | 2019 | Visit | & [facility] | | | | | | [address] | | | | | | Mailcode: [place] | | | | | | [facility] | | | | | | Healing, [address] | | | | | | [place], [place] | | | | | | [address] | | | | | | [phone] | | | +--------+ + + + [...]
--- OUTSIDE RECORDS SUMMARY | ~2019-08-12 | XMS | Encounter Summary ---
Demographics + + + | Address | [address] | | | [place] [address] | + + + | Home Phone [...] Providers + +------+ + | Care Emergency Dispatcher Name | Role | Phone | + +------+ + | Justo Vazquez MD | PCP | | + +------+ + Encounter Details +--------+ + + + + | Date | Type | Department | Care Team | Description | +--------+ + + + + | 09/20/ | Telephone | [facility] | [place]ene Bright, | | | 2017 | | Pain Center at | INBOUND SALES REPRESENTATIVE [address] | | | | | [facility] | Ave [place], [place] | | | | | [address] | [address] | | | | | Mailcode: CH15P | [phone] | | | | | [facility] | | | | | | and Healing, | | | | | | | | | | | | [place], [place] | | | | | | [address] | | | | | | [phone] | | | +--------+ + + + [...]
--- OUTSIDE RECORDS SUMMARY | ~2019-08-12 | XMS | Encounter Summary ---
Demographics + + + | Address | [address] | | | [place] [address] | + + + | Home Phone [...] Providers + +------+ + | Care Medical Billing Assistant Name | Role | Phone | [...] | | 2017 | | Center at [facility] [address] | [address] | pain | | | | [address] | [place], | | | | | Mailcode: [place] | [place] [address] | | | | | for Health and | [phone] | | | | | [place] [address] | | | | | | [place], [place] | | | | | | [address] | | | | | | [phone] | | | +--------+ + + + [...]
--- OUTSIDE RECORDS SUMMARY | ~2019-08-12 | XMS | Clinical Summary ---
Demographics + + + | Address | [address] | | | [place] [address] | + + + | Home Phone | | + + + | Preferred Language | Unknown | + + + | Marital Status | Single | + + + | Baptism Affiliation | 1073 | + + + | Race | Unknown | + + + | Ethnic Group | Unknown | + + + Author + + + | Author | [facility] | | | and [place] | + + + | Organization | [facility] | | | and [place] | + + + | Address | Unknown | + + + | Phone | Unavailable | + + + Support + + + + + | Name | Relationship | Address | Phone | + + + + + | Patricia Keller | ECON | [address] | | | | | [place] | | | | | [address] | | + + + + + | EDDY FARAH | ECON | Unknown | | + + + + + Care Team Providers + +------+ + | Care Plate Cutter Name | Role | Phone | + +------+ + | Justo Vazquez MD | PCP | Unavailable | + +------+ + Allergies Not on [...] + | Blood Pressure | 122/68 | 06/22/20162035 PDT | + + + + | Pulse | 72 | 06/22/20162035 PDT | + + + + | Temperature | 36.6 C (97.9 F) | 06/22/20162035 PDT | + + + + | Respiratory Rate | 16 | 06/22/20162035 PDT | + + + + | Oxygen Saturation | - | - | + + + + | Inhaled Oxygen | - | - | | Concentration | | | + + + + | Weight | 69.3 kg (152 lb 12.5 | 06/22/20162035 PDT | | | oz) | | + + + + | Height | - | - | + + + + | Body Mass Index | - | - | + + + + Plan of [...] | | | | | (#1) | 9 | | | + [...] +--------+ +---------+--------+ | MEDICARE | MEDICA | [id number] | 07/15/20 | [phone] | | Medica | | | RE | | 15-Pre | 5 | | re | | | PART A | | sent | | | | | | AND B | | | | | | + +--------+ +--------+ +---------+--------+ | MEDICAID [place] | MEDICA | [id number] | | [phone] | | Medica | [...] | | Anika | gabo/Brian | | 1990 | [phone] | [place] [address] | | | evita | | | 6 (Home) | | + +--------+ +--------+ + +"
--- OUTSIDE RECORDS SUMMARY | ~2019-08-12 | XMS | Encounter Summary ---
Demographics + + + | Address | [address] | | | [place] [address] | + + + | Home Phone [...] Providers + +------+ + | Care Sap Technical Architect Name | Role | Phone | + +------+ + | Justo Vazquez MD | PCP | | + +------+ + Encounter Details +--------+ + + + + | Date | Type | Department | Care Team | Description | +--------+ + + + + | 09/27/ | Telephone | [facility] | Ilene Bright, | | | 2017 | | Pain Center at | SALES AND MARKETING VICE PRESIDENT [address] | | | | | [facility] | Ave [place], [place] | | | | | [address] | [address] | | | | | Mailcode: CH15P | [phone] | | | | | [facility] | | | | | | and Healing, | | | | | | | | | | | | [place], [place] | | | | | | [address] | | | | | | [phone] | | | +--------+ + + + [...]
--- OUTSIDE RECORDS SUMMARY | ~2019-08-12 | XMS | Encounter Summary ---
Demographics + + + | Address | [address] | | | [place] [address] | + + + | Home Phone [...] Providers + +------+ + | Care Grab Setter Name | Role | Phone | [...] | | | regional | [place] | [address] | | | | | pain | FAMILY | Mailstop | | | | | syndrome), | MEDICINE P | [id number] | | | | | lower limb | [address] | [place], [place] | | | | | Pain in | [place], | [address] | | | | | joint, lower | [place] [address] | Phone: | | | | | leg | Phone: | [phone] | | | | | Procedures | [phone] | Fax: | | | | | REQUEST TO | Fax: | [phone] | | | | | SURGERY | [phone] | | | | | | KETTLE SKIMMER | | | +--------+--------+ + + + [...] | | | sympathetic | [place]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 | FAMILY | Mailstop | | | | | of lower | MEDICINE P | [id number] | | | | | limb | [address] | [place], [place] | | | | | | [place], | [address] | | | | | | [place] [address] | Phone: | | | | | | Phone: | [phone] | | | | | | [phone] | Fax: | | | | | | Fax: | [phone] | | | | | | [phone] | | +--------+--------+ + + + + Encounter Details +--------+---------+ + + + | Date | Type | Department | Care Team | Description | +--------+---------+ + + + | 06/06/ | Office | [facility] Comprehensive | Dale Cantu, | CRPS (complex | | 2011 | Visit | Pain Center at | MD [address] | regional pain | | | | [facility] | [facility] [id number] | syndrome), lower | | | | [address] | [place], [place] | limb; Pain in joint, | | | | Mailcode: CH15P | [address] | lower leg | | | | [facility] | [phone] | | | | | and Healing, | | | | | | | | | | | | Floor [place], [place] | | | | | | [address] | | | | | | [phone] | | | +--------+---------+ + + + [...] Dale Cantu MD - 06/06/2012 11:49 [facility] Pre-Procedure Instructions: The procedure you discussed with your doctor is called: SCS TRIAL LUMBAR [facility]. Please make sure this is scheduled with the Head Charrer. Please bring a crude oil driver with you. We may give you medications that make you drowsy or otherw ise unsafe to drive. If you do not have a crude oil driver, we will not be able to [...] PLEASE CONTACT THE COMPREHENSIVE PAIN CENTER AT [phone] ([phone]) FOR QUESTIONS OR IF YOU NEED TO CANCEL YOUR APPOINTMENT. [facility] Comprehensive Pain Center documented in [...] not signed. Given information. DALE CANTU MD Combat Systems Operator, Comprehensive Pain Center Tapper Helper, Pain Medicine Professor, Anesthesiology & Perioperative Medicine ollHomer manriquez MD - 06/06/2012 11:17 AM PDT [facility] Pain Center Return Visit with Dr. [...] drawing which I reviewed. [facility] Brief Pain Inventory: (ten= worst [...] The Review of Systems obtained by the CLOTH FRAMER was reviewed. Additional Review of Systems: Bones, [...] up with Dr. Dale Cantu at the [facility] today for left foot CRPS which [...] Homer Elaine MD Pain Medicine Fellow [facility] [place] Evelia Parsons - 11:07 AM PDTCMA History: [...]
--- OUTSIDE RECORDS SUMMARY | ~2019-08-12 | XMS | Encounter Summary ---
Demographics + + + | Address | [address] | | | [place] [address] | + + + | Home Phone [...] Team Providers + +------+ + | Care Cigar Binder Name | Role | Phone | + +------+ + | Justo Vazquez MD | PCP | | + +------+ + Encounter Details +--------+ + + + + | Date | Type | Department | Care Team | Description | +--------+ + + + + | 05/14/ | Telephone | [facility] | Alex Sanchez, | | | 2019 | | Pain Center at | ,PhD [address] | | | | | [facility] | [address] | | | | | [address] | [place], [place] | | | | | Mailcode: CH15P | [address] | | | | | [place] [facility] | [phone] | | | | | and Healing, | | | | | | | | | | | | Floor [place], [place] | | | | | | [address] | | | | | | [phone] | | | +--------+ + + + [...]
--- OUTSIDE RECORDS SUMMARY | ~2019-08-12 | XMS | Encounter Summary ---
Demographics + + + | Address | [address] | | | [place] [address] | + + + | Home Phone [...] Team Providers + +------+ + | Care Office Auditor Name | Role | Phone | + +------+ + | Justo Vazquez MD | PCP | | + +------+ + Encounter Details +--------+ + + + + | Date | Type | Department | Care Team | Description | +--------+ + + + + | 01/11/ | Procedure | Diagnostic Imaging | | | | 2016 | Pass | Services at [facility] | | | | | | [address] | | | | | | Giuliana Maldonado Mailcode: | | | | | | [address] | | | | | | [facility] | | | | | | [place], [place] | | | | | | [address] | | | | | | [phone] | | | +--------+ + + + [...]
--- OUTSIDE RECORDS SUMMARY | ~2019-08-12 | XMS | Encounter Summary ---
Demographics + + + | Address | [address] | | | [place] [address] | + + + | Home Phone [...] Team Providers + +------+ + | Care Facility Practice Specialist Name | Role | Phone | + +------+ + | Justo Vazquze MD | PCP | | + +------+ + Encounter Details +--------+ + + + + | Date | Type | Department | Care Team | Description | +--------+ + + + + | 10/20/ | Telephone | [facility] | Ilene Bright, | | | 2017 | | Pain Center at | LAW EXAMINER [address] | | | | | [facility] | Ave [place], [place] | | | | | [address] | [address] | | | | | Mailcode: CH15P | [phone] | | | | | [facility] | | | | | | and Healing, | | | | | | | | | | | | [place], [place] | | | | | | [address] | | | | | | [phone] | | | +--------+ + + + [...]
--- OUTSIDE RECORDS SUMMARY | ~2019-08-12 | XMS | Encounter Summary ---
Demographics + + + | Address | [address] | | | [place] [address] | + + + | Home Phone [...] Team Providers + +------+ + | Care Desk Manager Name | Role | Phone | [...] [address] | | | | | [facility] | [facility], | | | | | [address] | [place] [address] | | | | | Mailcode: CH15 | [phone] | | | | | [facility] | | | | | | and Healing, | | | | | | Building | | | | | | Floor [place], [place] | | | | | | [address] | | | | | | [phone] | | | +--------+ + + + [...]
--- OUTSIDE RECORDS SUMMARY | ~2019-08-12 | XMS | Encounter Summary ---
Demographics + + + | Address | [address] | | | [place] [address] | + + + | Home Phone [...] Team Providers + +------+ + | Care Casserole Preparer Name | Role | Phone | + +------+ + | Justo Vazquez MD | PCP | | + +------+ + Encounter Details +--------+ + + + + | Date | Type | Department | Care Team | Description | +--------+ + + + + | 08/30/ | Documentati | Pain Center at [facility] | Jamel Madden, | | | 2018 | on | 15 Floor [address] | PhD [address] | | | | | [address] Mailcode: | [place], [place] | | | | | [address] for | [address] | | | | | Health and Healing, | [phone] | | | | | | | | | | | [place], [place] | | | | | | [address] | | | | | | [phone] | | | +--------+ + + + [...]
--- OUTSIDE RECORDS SUMMARY | ~2019-08-12 | XMS | Encounter Summary ---
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
--- OUTSIDE RECORDS SUMMARY | ~2019-08-12 | XMS | Encounter Summary ---
Demographics + + + | Address | [address] | | | [place] [address] | + + + | Home Phone [...] Team Providers + +------+ + | Care Briar Shop Supervisor Name | Role | Phone [...] + + | 08/03/ | Refill | [facility] | Alex Sanchez, | Refill Request | | 2018 | | Pain Center at | ,PhD [address] [facility] | (ketamine) | | | | [facility] | [facility] | | | | | [address] | [place], [place] | | | | | Mailcode: CH15P | [address] | | | | | [facility] | [phone] | | | | | and Martina, | | | | | | Building | | | | | | Floor [place], [place] | | | | | | [address] | | | | | | [phone] | | | +--------+--------+ + + + [...]
--- OUTSIDE RECORDS SUMMARY | ~2019-08-12 | XMS | Encounter Summary ---
Demographics + + + | Address | [address] | | | [place] [address] | + + + | Home Phone [...] Providers + +------+ + | Care Legal Support Assistant Name | Role | Phone | + +------+ + | Allegra Gandhi | PCP | | + +------+ + Encounter Details +--------+ + + + + | Date | Type | Department | Care Team | Description | +--------+ + + + + | 02/13/ | Outside | UNKNOWN DEPARTMENT | Other, Faculty | | | 2011 | Records | [address] [facility] | [phone] | | | | | [address] | | | | | | [place], [place] | | | | | | [address] | | | +--------+ + + + [...]
--- OUTSIDE RECORDS SUMMARY | ~2019-08-12 | XMS | Clinical Summary ---
Demographics + + + | Address | [address] | | | [place] [address] | + + + | Home Phone [...] | Author | [facility] | + + + | Organization | [facility] | + + + | Address | Unknown | + + + | Phone | Unavailable | + + + Support + + +---------+ + | Name | Relationship | Address | Phone | + + +---------+ + | Patricia Colin | ECON | Unknown | | + + +---------+ + Care Team Providers + +------+ + | Care Gasoline Attendant Name | Role | Phone | + +------+ + | Justo Vazquez MD | PCP | | + +------+ + Source Comments KEVIN is fully live on both [facility] Ambulatory and [facility] InPatient.[facility] Allergies + + + + + [...] mouth | 119 g | 0 | 12/1 | | Activ | | glycol 17 gram/dose | once daily. | | | 2/20 | | e | | oral powder | | | | 15 | | | + + + +---------+------+------+-------+ | ondansetron ODT 4 | Dissolve 1 tablet in | 15 | 0 | 09/2 | | Activ | | mg oral | mouth every twelve | tablet | | 5/20 | | e | | tablet,disintegratin | hours as needed. | | | 16 | | | | g | | | | | | | + + + +---------+------+------+-------+ | peg-electrolyte | Take as directed by | 8000 mL | 0 | 01/2 | | Activ | | [id number] -5.86 | [facility] | | | 4/20 | | e | | gram oral recon | Health- 2 gallon | | | 17 | | | | soln | bowel prep | | | | | | + + + +---------+------+------+-------+ | sucralfate 1 gram | Take 1 g by mouth | | 0 | | | Activ | | oral tablet | four times daily. | | | | | e | + + + +---------+------+------+-------+ | pantoprazole 40 mg | Take 40 mg by mouth | | 0 | | | Activ | | oral tablet,delayed | once daily as | | | | | e | | release (DR/EC) | needed. | | | | | | + + + +---------+------+------+-------+ | cyclobenzaprine 5 | Take 5 mg [...] | | + + + +---------+------+------+-------+ | baclofen 10 mg | Take 0.5 [...] | | + + + +---------+------+------+-------+ | ketorolac | Inject into the | | 0 | | | Activ | | tromethamine | muscle (IM). | | | | | e | | (KETOROLAC IM) | | | | | | | + + + +---------+------+------+-------+ | hydrOXYzine 50 mg | Take 1 tablet by | | 5 | 07/2 | | Activ | | oral tablet | mouth two times | | | 20 | | e | | | daily. | | | 18 | | | + + + +---------+------+------+-------+ | promethazine 12.5 | Take 1 tablet by | 20 | 0 | 04/2 | | Activ | | mg oral tablet | mouth four times | tablet | | 08/03 | | e | | | daily as needed for | | | 19 | | | | | nausea/vomiting. | | | | | | + + + +---------+------+------+-------+ | buPROPion 100 mg | Take 200 mg by mouth | | 0 | | | Activ | | oral tablet | two times daily. | | | | | e | + + + +---------+------+------+-------+ | DULoxetine 30 mg | Take 60 mg by mouth | | 0 | | | Activ | | oral capsule,delayed | once daily in the | | | | | e | | release(DR/EC) | morning. | | | | | | + + + +---------+------+------+-------+ | DULoxetine 30 mg | Take 30 mg by mouth | | 0 | | | Activ | | oral capsule,delayed | once daily in the | | | | | e | | release(DR/EC) | evening. | | | | | | + + + +---------+------+------+-------+ | cloNIDine HCl 0.1 | Take 0.1-0.2 mg by | | 0 | | | Activ | | mg oral tablet | mouth once daily at | | | | | e | | | bedtime. | | | | | | + + + +---------+------+------+-------+ | oxyCODONE | Take one-half tablet | 90 | 0 | 06/ | | Activ | | (immediate release) [...] | | | + + + +---------+------+------+-------+ Active Problems + + + | Problem | Noted Date | + + + | BLANCASU CLINICAL PROTOCOL PATIENT (CLNPRO) - Implanted Spinal Cord | 12/14/2018 | | Stimulator | | + + + + + | Overview: Patient has an implanted [employer] spinal | | cord stimulator. Model#: [id number]. 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 | | | | | | of left lower | | | | | | extremity (Primary | | | | | | Dx); Midline low | | | | | | back pain without | | | | | | sciatica, | | | | | | unspecified | | | | | | chronicity; | | | | | | Sacroiliac pain; | | | | | | Sacral dysfunction; | | | | | | Somatic dysfunction | | | | | | of pelvis region; | | | | | | Somatic dysfunction | | | | | | of sacral region | +--------+ + + + + | 07/04/ | Travel | | | | | 2018 | | | | | +--------+ + + + + | 06/08/ | Shellfish Processing Machine Tender | Pain Management | Alex Sanchez, | Complex regional | | 2018 | | | PhD SHARON | pain syndrome type 1 | | | | | | of left lower | | | | | | extremity (Primary | | | | | | Dx) | +--------+ + + + + | 06/07/ | Telephone | Pain Management | Alex Sanchez, | | | 2018 | | | PhD SHARON | | +--------+ + + + + | 06/04/ | Documentati | Pain Management | Alex Sanchez, | | | 2018 | on | | PhD SHARON | | +--------+ + + + + | 05/18/ | Telephone | Pain Management | Alex Sanchez, | | | 2018 | | | PhD SHARON | | +--------+ + + + + | 05/14/ | Telephone | Pain Management | Alex Sanchez, | | | 2018 | | | PhD SHARON | | +--------+ + + + + from Last 3 Months Family History + + +------+ + | [...] | Right: | BARD | | | [id number] | | Port-10/05/2016Implanted: | | Chest | | | | 0 / | | 10/05/2016 by Obdulio Simpson, | | | | | | /REAU2 | | MD (Quantity not on file) | | | | | | 204 | + +------+--------+ +--------+--------+--------+ + + | Description:Not Power | | Injectable, Progress record | | faxed from [facility] | | [facility] in [place], [place], | | [facility] RN | + + + +---+---+ +---+--------+--------+ | Slimtip DrgImplanted: Qty: 1 | | | [facility] | | 01/06/ | [id number] | | on 12/05/2018 by Daniel, | | | MEDICAL SC | | 2020 | 0-50A | | Alex Alba MD,PhD at [facility] | | | | | | /[id number] | | INPATIENT REV LOC | | | | | | 371 / | + +---+---+ +---+--------+--------+ + + | Description: | | Level 4 | + + + +---+---+ +---+---+--------+ | Slimtip DrgImplanted: Qty: 1 | | | [facility] JESSICA | | | [id number] | | on 12/05/2018 by Daniel, | | | MEDICAL SC | | | 0-50A | | Alex Alba MD,PhD at [facility] | | | | | | /[id number] | | INPATIENT REV LOC | | | | | | 374 / | + +---+---+ +---+---+--------+ + + | Description: | | Level5 | + + + +---+--------+ +---+--------+--------+ | Implantable Pulse | | Right: | ST JESSICA | | 04/10/ | [id number] | | GeneratorImplanted: Qty: 1 on | | Other | MEDICAL SC | | 2019 | /[id number] | | 12/05/2018 by Daniel, | | | | | | 2.1 / | | Alex Alba MD,PhD at [facility] | | | | | | | | INPATIENT REV LOC | | | | | | | + +---+--------+ +---+--------+--------+ + + | Description: | | Right lower Back | + + Procedures + +--------+ + + + | Procedure Name | Priori | Date/Time | Associated Diagnosis | Comments | | | ty | | | | + +--------+ + + + | MI CHIROPRAC | Routin | 07/10/2019 | Sacroiliac pain | | | MANIP,SPINAL,1-2 | e | 12:46 PM | Sacral dysfunction | | | REGIONS | | PDT | Somatic dysfunction | | | | | | of pelvis region | | | | | | Somatic dysfunction | | | | | | of sacral region | | + +--------+ + + + from Last 3 Months Results Not on filefrom Last 3 Months [...] | MEDICA | xxxxxxxxxxx | 07/15/20 | [phone] | [address] | Medica | | | RE A & | | 15-Pre | 1 | [address] | re | | | B | | sent | | [place] | | | | | | | | [address] | | + +--------+ +--------+ + +--------+ | ELECTRIC GOLF CART REPAIRER MEDICAID | ELECTRIC GOLF CART REPAIRER | xxxxxxxx | 11/14/19 | | | [...] Self | [birth year] | | [address] | | Anika | al/Fam | | 1989 | [phone] | [place] [address] | | | evita | | | [...]
--- OUTSIDE RECORDS SUMMARY | ~2019-08-12 | XMS | Encounter Summary ---
Demographics + + + | Address | [address] | | | [place] [address] | + + + | Home Phone [...] Providers + +------+ + | Care Coffee Brewer Name | Role | Phone | + [...] Closed | | Orthopedics | Diagnoses | [place], | [facility] | | | | | Adjustment | Ranjeet Odom MD | [address] | | | | | disorder, | [address] | | | | | unspecified | [address] | Mailcode: | | | | | type | [place], [place] | [facility] | | | | | Procedures | [address] | for Health | | | | | CONSULT TO | Phone: | and Healing, | | | | | BEHAVIORAL | [phone] | Building 1, | | | | | HEALTH/PSYCH | Fax: | 12th Floor | | | | | IATRY - | [phone] | [place], [place] | | | | | ADULT | | [address] | | | | | | | Phone: | | | | | | | [phone] | | | | | | | Fax: | | | | | | | [phone] | +--------+--------+ + + + + Reason [...] | regional | ,PhD [address] | [address] | | | | | pain | [address] | [address] | | | | | syndrome | [place] | [place], [place] | | | | | type 1 of | Rd | [address] | | | | | left lower | [place], [place] | Phone: | | | | | extremity | [address] | [phone] | | | | | Procedures | Phone: | Fax: | | | | | CONSULT TO | [phone] | [phone] | | | | | ORTHOPEDICS | Fax: | | | | | | AND | [phone] | | | | | | REHABILITATI | | | | | | | ON | | | +--------+--------+ + + + + Encounter Details +--------+---------+ + + + | Date | Type | Department | Care Team | Description | +--------+---------+ + + + | 03/08/ | Office | Orthopaedics at | Ranjeet Amanda, | Foot pain, left | | 2018 | Visit | [facility] [address] | [address] | (Primary Dx); Left | | | | Ave Mailcode: CH12A | [place], [place] | ankle pain, | | | | [facility] | [address] | unspecified | | | | and Healing, | [phone] | chronicity; | | | | [facility] | | Adjustment disorder, | | | | Floor [place], [place] | | unspecified type | | | | [address] | | | | | | [phone] | | | +--------+---------+ + + + [...] allodynia, presumed complex regional pain syndrome Tracie Anika Farah is a 27 y.o. female who [...] Hemroidectomy Trial spinal cord stimulator leads 08/02/2012 [facility], Surgeon: Janak Riojas MD Cholecystectomy [...] by physician. Concentration is 150mg/mL. Compounded by [employer] ([phone]) levonorgestrel (MIRENA) 20 mcg/24 hr Intrauterine IUD [...] oral recon soln Take as directed by [facility]- 2 gallon bowel prep polyethylene [...] the pertinent parts of the physical examin ation and personally formulated the plan with the [...] become. f/u open ended Ranjeet Amanda M.D. Filter Press Tender Foot and Ankle Surgery Department of Orthopedics & Rehabilitation [facility] [phone] >60 mins face to face consultation was [...]
--- OUTSIDE RECORDS SUMMARY | ~2019-08-12 | XMS | Encounter Summary ---
Demographics + + + | Address | [address] | | | [place] [address] | + + + | Home Phone [...] Team Providers + +------+ + | Care Neurobiologist Name | Role | Phone | + +------+ + | Justo Vazquez MD | PCP | | + +------+ + Encounter Details +--------+ + + + + | Date | Type | Department | Care Team | Description | +--------+ + + + + | 07/24/ | MyChart | Endoscopic | Kenny Gaspar MD | Dietary information | | 2017 | Encounter | Procedural Unit at | [address] | | | | | David Cor[address]es [address] | Giuliana Maldonado [place], | | | | | [address] | [place] [address] | | | | | Joel Mailcode: UHN83 | [phone] | | | | | Liane Cai | | | | | | [address] [place], [place] | | | | | | [address] | | | | | | [phone] | | | +--------+ + + + [...]
--- OUTSIDE RECORDS SUMMARY | ~2019-08-12 | XMS | Encounter Summary ---
Demographics + + + | Address | [address] | | | [place] [address] | + + + | Home Phone [...] Team Providers + +------+ + | Care Dietitian Helper Name | Role | Phone | + +------+ + | Justo Vazquez MD | PCP | | + +------+ + Encounter Details +--------+ + + + + | Date | Type | Department | Care Team | Description | +--------+ + + + + | 12/07/ | Telephone | [facility] | Alex Sanchez, | | | 2019 | | Pain Center at | ,PhD [address] | | | | | [facility] | [facility] [address] | | | | | [address] | [place], [place] | | | | | Mailcode: CH15P | [address] | | | | | [place] for [facility] | [phone] | | | | | and Healing, | | | | | | | | | | | | Floor [place], [place] | | | | | | [address] | | | | | | [phone] | | | +--------+ + + + [...]
--- OUTSIDE RECORDS SUMMARY | ~2019-08-12 | XMS | Encounter Summary ---
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 Surgery check-in location: [facility] Day Stay - [place] for Health and Healing, 4th floor Surgery [...] it is after office hours, call the [facility] post tronic machine operator at [phone] and ask them to page him or h er. documented in this encounter Progress Notes Catie Smart NP - 11/27/2018 2:05 PM PST PREOPERATIVE CONSULT NOTE Author: Catie Smart NP Referring Physician: Alex Sanchez MD Primary Care Provider: Justo Vazquez MD Reason for Consult: Preoperative evaluation and risk assessment Proposed Procedure/Date: implant SCS; 12/05/2018 Proposed Procedure Location: [facility] HISTORY OF PRESENT ILLNESS: Tracie Farah is [...] renal failure no electrolyte abnormalities no dialysis Urology/Java Solutions Architect: Interstitial cystitis LMP: irreg bleeding, ~11/14/2018, IUD [...] oral recon soln Take as directed by [facility]- 2 gallon bowel prep polyethylene glycol [...] Trial spinal cord stimulator leads 08/02/2012 [facility], Surgeon: Janak Riojas MD Cholecystectomy [...] patient is a lso currently scheduled at [facility] [place] and is meeting inclusion criteria for [...] to this patient's care. Catie Smart NP [facility] PBB PREOPERATIVE MEDICINE CLINIC AT [facility] 4TH FLOOR [address] [facility] [address] I advised the patient regarding [...]
--- OUTSIDE RECORDS SUMMARY | ~2019-08-12 | XMS | Encounter Summary ---
Demographics + + + | Address | [address] | | | [place] [address] | + + + | Home Phone [...] Providers + +------+ + | Care Emergency Care Attendant Name | Role | Phone | [...] | Diagnoses | Beulah | Edu Pt Company Manager | | | | Therapy | CRPS | Janak Martinez MD | [address] | | | | | (complex | [address] | | | | | regional | [address] | Mailcode: | | | | | pain | Mailstop | [facility] | | | | | syndrome), | [phone] | for Health | | | | | lower limb | [place], [place] | and Healing, | | | | | Gait | [address] | [address] | | | | | disturbance | Phone: | [place], [place] | | | | | Muscle pain | [phone] | [address] | | | | | Procedures | Fax: | Phone: | | | | | PHYSICAL | [phone] | [phone] | | | | | THERAPY | [...] regional pain | | | | [facility] | Ave [place], [place] | syndrome), lower | | | | [address] | [phone] | limb (Primary Dx) | | | | Mailcode: CH3P | | | | | | [facility] | | | | | | and Healing, | | | | | | Building 1 | | | | | | Floor [place], [place] | | | | | | [address] | | | | | | [phone] | | | +--------+---------+ + + + [...] might be different f rom the original. [id number] BRODY FARAH Date of : 1990 Start of care: 02/14/2012 Date of onset: 02/14/2012 Referring/Attending Practitioner: Janak Riojas MD . Primary/Referral Diagnosis/ICD-9: 355.71B CRPS (complex regional pain syndrome), lower limb Insurance: Payor: [facility] Plan: BCBS OUT OF STATE Product Type: PP O Service period from: 02/14/2012 to: 08/12/2012 Number visits used/authorized: 05/25 [facility] PHYSICAL THERAPY PROGRESS NOTE SUBJECTIVE: Age: [...] any change in their status. Guillermo Sanon [facility] Outpatient Rehabilitation Services Mailcode: Ch3p [address] [facility], [address] [place] [phone] documented in this encounter Plan of Treatment Not on filedocumented as of this encounter Procedures + +--------+ + + + | Procedure Name | Priori | Date/Time | Associated Diagnosis | Comments | | | ty | | | | + +--------+ + + + | TN MANUAL THER | Routin | 06/09/2012 | CRPS (complex | | | TECH,1+REGIONS,EA 15 | e | 2:46 PM | regional pain | | | MIN | | PDT | syndrome), lower | | | | | | limb | | + +--------+ + + + | TN THERAPEUTIC | Routin | 06/09/2012 | CRPS [...]
--- OUTSIDE RECORDS SUMMARY | ~2019-08-12 | XMS | Encounter Summary ---
Demographics + + + | Address | [address] | | | [place] [address] | + + + | Home Phone [...] Team Providers + +------+ + | Care Benefits Representative Name | Role | Phone | + +------+ + | Justo Vazquez MD | PCP | | + +------+ + Encounter Details +--------+ + + + + | Date | Type | Department | Care Team | Description | +--------+ + + + + | 12/05/ | Procedure | [facility] | | | | 2019 | Pass | [facility] [place] [facility] | | | | | | and Healing Surgery | | | | | | Center Admitting | | | | | | Desk Located on the | | | | | | 4th floor [address] | | | | | | [address] [place], | | | | | | [place] [address] | | | +--------+ + + + [...]
--- OUTSIDE RECORDS SUMMARY | ~2019-08-12 | XMS | Encounter Summary ---
Demographics + + + | Address | [address] | | | [place] [address] | + + + | Home Phone [...] Team Providers + +------+ + | Care Piping Blocker Name | Role | Phone | [...] | Orthopedics | Diagnoses | Sdr[place], | [place], | | | | | Complex | Alex Alba, | Ranjeet Odom MD | | | | | regional | ,PhD [address] | [address] | | | | | pain | [address] | [address] | | | | | syndrome | [address] | [place], [place] | | | | | type 1 of | Rd | [address] | | | | | left lower | [place], [place] | Phone: | | | | | extremity | [address] | [phone] | | | | | Procedures | Phone: | Fax: | | | | | CONSULT TO | [phone] | [phone] | | | | | ORTHOPEDICS | Fax: | | | | | | AND | [phone] | | | | | | REHABILITATI [...] | ankle results) | | | | [facility] | [facility] | | | | | [address] | [place], [place] | | | | | Mailcode: CH15P | [address] | | | | | [facility] | [phone] | | | | | and Healing, | | | | | | Building | | | | | | Floor [place], [place] | | | | | | [address] | | | | | | [phone] | | | +--------+ + + + [...]
--- OUTSIDE RECORDS SUMMARY | ~2019-08-12 | XMS | Encounter Summary ---
Demographics + + + | Address | [address] | | | [place] [address] | + + + | Home Phone [...] Team Providers + +------+ + | Care Outside Plant Engineer Name | Role | Phone | [...] | | Pain Center at | ,PhD [address] | denied) | | | | [facility] | [address] | | | | | [address] | [place], [place] | | | | | Mailcode: CH15P | [address] | | | | | [facility] | [phone] | | | | | and [address], | | | | | | Building | | | | | | Floor [place], [place] | | | | | | [address] | | | | | | [phone] | | | +--------+ + + + [...]
--- OUTSIDE RECORDS SUMMARY | ~2019-08-12 | XMS | Encounter Summary ---
Demographics + + + | Address | [address] | | | [place] [address] | + + + | Home Phone [...] Providers + +------+ + | Care Production Control Clerk Name | Role | Phone [...] | | | | | syndrome | [place] | [facility] | | | | | type 1 of | Rd | Rd [place], | | | | | left lower | [place], [place] | [place] | | | | | extremity | [address] | [address] | | | | | Procedures | Phone: | Phone: | | | | | REQUEST TO | [phone] | [phone] | | | | | SURGERY | Fax: | Fax: | | | | | PRINT FINISHING WORKER | [phone] | [phone] | +--------+---------+ + + + + Encounter Details +--------+ + + + + | Date | Type | Department | Care Team | Description | +--------+ + + + + | 12/ | Procedure | Pain Center at [facility] | Alex Sanchez, | Foot pain; Knee | | 2017 | | 15th Floor [address] | ,PhD [address] | pain; Procedure | | | | [address] Mailcode: | [address] [facility] | | | | | CH15P [facility] | [place], [place] | | | | | Health and Healing, | [address] | | | | | [facility] | [phone] | | | | | Floor [place], [place] | | | | | | [address] | | | | | | [phone] | | | +--------+ + + + [...] Sonia Key - 09/25/2018 1:00 PM PST [facility] Patient Instructions - Post Interventional Procedure Date: 09/25/2018 Name: Tracie Farah Date of : 1990 Procedure Performed: SCS DRG TRIAL LUMBAR [facility] Procedure Provider: Alex Sanchez MD,PhD If you have any problems you believe are associated with your procedure tonight, Please call the Hospital Sales Audit Clerk, and ask for the Pain Management Consu ltant. If you have problems or questions between 9:00 am and 4:00 pm, Please call the [facility] Nurse Triage Line, . [...] symptoms, dressing, SCS function, or chills. During DIRECT SALES PROFESSIONAL open ho urs, call the DIRECT SALES PROFESSIONAL ([phone]), after hours call the printing press machine operator at [facility] ([phone]) and ask for the Adult Pain Service account contact associate. Identify yourself as a [facility] [...] to the pat ient. Aleta Rebollar MD [facility] Edacrysqbnyasv signed by Snoia Key at 09/25/2018 3:07 PM PST documented in this encounter Progress Notes Alex Sanchez MD,PhD - 09/25/2018 1:00 PM PSTI was present for the entire procedure ( DRG SCS trial) and all bocanegra elements of this visit. I reviewed the documentation of the othe r [facility] providers and concur with Dr. Rebollar's findings. I edited his note. Alex Sanchez MD,PhD Solar Energy Systems Engineer Anesthesiology and Pain Management [facility] [place], Zain Hale RN - 09/25/2018 1:00 PM PSTFormatting of [...] C (97.1 F) TempSrc: Oral Resp: 15 15 12 SpO2: 100% 100% 99% PainSc: 07 - [...] by physician. Concentration is 150mg/mL. Compounded by [facility] ) KETOROLAC IM Inject into the [...] Take as directed by [facility]- 2 gallon bowel prep POLYETHYLENE GLYCOL [...] Status: 2. Plan: Procedure with moderate sedation oterKhloe RN - 09/25 1:00 PM PST FORTUNATO/ZOFIA PRE-SEDATION: Date: September 25, 2018 Tracie Farah [id number] 1990 ALLERGIES: Morphine Previous reaction to Sedation/Analgesia: [...] fear of physical activity and social withdrawal oIsadora flaherty RN - 09/25/2018 1:00 PM PSTFormatting of t his note might be different from the original. PRE-SEDATION AND PROCEDURE NOTES: Date: September 25, 2018 Tracie [facility] [id number] 1990 ALLERGIES: Morphine Previous reaction to Sedation/Analgesia: [...] VS: See Sedation Flow Sheet. Tracie [facility]ds[facility] [id number] 1990, presents to clinic for: Procedure: bilateral [...] stable condition. 900 mL of LR infused Aleta Marin MD - 09/25/2018 1:00 PM PSTPROVIDER OPERATIVE NOTE Date: September 25, 2018 Location: [facility] Procedure Room Tracie [facility] [id number] :1990, presents to clinic for: PROCEDURE: DRG Spinal Cord Stimuation Trial with [facility] system LEVEL/LATERALITY: left L4, L5 PRE-OPERATIVE DIAGNOSIS: G90.522 Complex regional pain syndrome type 1 of left lower extremity POST-OPERATIVE DIAGNOSIS: G90.522 Complex regional pain syndrome type 1 of left lower extremity ATTENDING PHYSICIAN: Alex Sanchez MD,PhD WEB SUPPORT ENGINEER: Fellow Aleta Rebollar ANESTHESIA: Sedation delivered by [...] sedation. Ms. Farah was escorted to the [facility] Procedure R oom, where she was positioned [...] patient. Ms. Farah was transported to the [facility] Pain Center post-procedure recovery area where she made an uneventful recovery. Programming was performed in the PACU with aid of the device hospital insurance representative and Ms. Susie faust was sent home with a few programs . This was a unilateral procedure. Alex Sanchez MD,PhD was present for the entire procedure. Images were saved, and sent to [employer]. Ms. Farah was transported to the [facility] post-procedure recovery area. She had an uneventful recovery. Before the procedure, Ms. Farah's pain was 7/10. After the procedure Ms. Farah's pain was 7/10. I, Sonia Key, am functioning as a scribe for Aleta Rebollar MD. I have reviewed and verified the above scribed note of my visit with this patient as record ed by Sonia Key. Aleta Rebollar MD [facility] AT [facility] 15TH FLOOR [address] Mail Code: [address] [place] [address] documented in t his encounter Plan of Treatment Not on filedocumented as of this encounter Procedures + +--------+ + + + | Procedure Name | Priori | Date/Time | Associated Diagnosis | Comments | | | ty | | | | + +--------+ + + + | ND MOD SEDATION | Routin | 09/25/2018 | Complex regional | | | >=5YRS SAME MD/QUAL | e | 7:31 PM | pain syndrome type 1 | | | PROV; INIT 15 MIN | | PST | of left lower | | | | | | extremity | | + +--------+ + + + | ND PERCUT IMPLNT | Routin | 09/25/2018 | [...]
--- OUTSIDE RECORDS SUMMARY | ~2019-08-12 | XMS | Encounter Summary ---
Demographics + + + | Address | [address] | | | [place] [address] | + + + | Home Phone [...] Team Providers + +------+ + | Care Pack Worker Name | Role | Phone | [...] 2016 | | Pain Center at | ART CRITIC [address] | | | | | [facility] | [place], [place] | | | | | [address] | [address] | | | | | Mailcode: CH15P | [phone] | | | | | [facility] | | | | | | joana Mack, | | | | | | | | | | | | [place], [place] | | | | | | [address] | | | | | | [phone] | | | +--------+ + + + [...]
--- OUTSIDE RECORDS SUMMARY | ~2019-08-12 | XMS | Encounter Summary ---
Demographics + + + | Address | [address] | | | [place] [address] | + + + | Home Phone [...] Team Providers + +------+ + | Care Soap Drier Operator Name | Role | Phone [...] | Pain Center at | MD [address] [facility] | evaluation (No | | | | [facility] | [facility] [id number] | evidence of drug | | | | [address] | [place], [place] | abuse) | | | | Mailcode: CH15 | [phone] | | | | | [facility] | [phone] | | | | | and Healing, | | | | | | Building | | | | | | Floor [place], [place] | | | | | | [address] | | | | | | [phone] | | | +--------+ + + + [...]
--- OUTSIDE RECORDS SUMMARY | ~2019-08-12 | XMS | Encounter Summary ---
Demographics + + + | Address | [address] | | | [place] [address] | + + + | Home Phone [...] Providers + +------+ + | Care Cook Dinner Name | Role | Phone | + [...] Services [address] | ,PhD [address] | | | | | [address] | [address] | | | | | [place], [place] | [place], [place] | | | | | [address] | [address] | | | | | | [phone] | | | | | | | [...] | + +--------+ + + + | CENTRAL LAB TECHNICIAN MISC PROCEDURE | Routin | 12/27/2017 | Complex regional | Results for this | | | e | 3:28 PM | pain syndrome type 1 | procedure are in the | | | | PST | of left lower | results section. | | | | | extremity | | + +--------+ + + + documented in this encounter Results [facility] MISC PROCEDURE (12/27/2017 3:28 PM PST) [...]
--- OUTSIDE RECORDS SUMMARY | ~2019-08-12 | XMS | Encounter Summary ---
Demographics + + + | Address | [address] | | | [place] [address] | + + + | Home Phone [...] Team Providers + +------+ + | Care Respiratory Care Technician Name | Role | Phone | [...] 2016 | | Pain Center at | TOE STRIPPER [address] | | | | | [facility] | [place], [place] | | | | | [address] | [address] | | | | | Mailcode: CH15P | [phone] | | | | | [facility] | | | | | | [address], | | | | | | Building | | | | | | [place], [place] | | | | | | [address] | | | | | | [phone] | | | +--------+ + + + [...]
--- OUTSIDE RECORDS SUMMARY | ~2019-08-12 | XMS | Encounter Summary ---
Demographics + + + | Address | [address] | | | [place] [address] | + + + | Home Phone [...] Team Providers + +------+ + | Care Retail Sales Vitamin Consultant Name | Role | Phone | + +------+ + | Justo Vazquez MD | PCP | | + +------+ + Encounter Details +--------+ + + + + | Date | Type | Department | Care Team | Description | +--------+ + + + + | 09/25/ | Hospital | Radiology/Imaging | Aleta Rebollar MD 8[address] | | | 2018 | Encounter | Lab at [facility] [address] | [address] | | | | | [address] Mailcode: | [facility] [place] | | | | | [address] | [address] | | | | | Health and Healing, | [phone] | | | | | [facility] | | | | | | Floor [place], [place] | | | | | | [address] | | | | | | [phone] | | | +--------+ + + + [...]
--- OUTSIDE RECORDS SUMMARY | ~2019-08-12 | XMS | Encounter Summary ---
Demographics + + + | Address | [address] | | | [place] [address] | + + + | Home Phone [...] Providers + +------+ + | Care Pharmacy Customer Care Specialist Name | Role | Phone | [...] + + | 12/05/ | Surgery | [facility] | Alex Sanchez, | BILATERAL DORSAL | | 2019 | | [facility] for [facility] | ,PhD [address] [facility] | ROOT GANGLION SPINAL | | | | and Healing Surgery | [address] | CORD STIMULATOR | | | | Center Admitting | [place], [place] | IMPLANT LUMBAR; | | | | Desk Located on the | [address] | POSTERIOR | | | | 4th floor [address] | [phone] | | | | | [address] [place], | | | | | | [place] [address] | | | +--------+---------+ + + + [...] s/p successful DRG trial lead system with [employer] on 09/25/2018. No changes in H&P, [...] OPERATIVE NOTE Date: December 05, 2018 Location: [facility] [place] | | | Tracie Farah [id number] :1990, presents to clinic | | | for: Dorsal root ganglion stimulator implant PROCEDURE: Dorsal | | | root ganglion stimulator implant PRE-OPERATIVE DIAGNOSIS: Complex | | | regional Pain syndrome type 1 of left lower extremity | | | POST-OPERATIVE DIAGNOSIS: Complex regional Pain syndrome type 1 of | | | left lower extremity ATTENDING PHYSICIAN: Alex Sanchez | | | FRONT END APPLICATION DEVELOPER: Arben Valerio MD ANESTHESIA: sedation by IVIS Cole | | | Carmen, supervised by roller cleaner Ilir Valdes. | | | FINDINGS: Appropriate [...] was | | | escorted to the [facility] [place], where she was positioned Prone [...] to the | | | [facility] [employer] retail field representative. A test stimulation was performed and [...] recovery. Images were saved, and sent to [employer]. | | | Alex Sanchez (attending) was present for the entire procedure. | | | Arben Valerio MD I was present for the entire procedure | | | (spinal cord stimulator implantation with DRG leads at left L4 and | | | L5) and all bocanegra elements of this visit. I reviewed the | | | documentation of the other CASTER HELPER providers and concur with | | | Iman's findings. I edited his note. Alex Sanchez, | | | ,PhD Quality Manager Anesthesiology and Pain Management | | | [facility] | | [...] + + | JOSE ANTONIO MIN | [address] | [place] [address] | | | OF CARE TESTS | [...] | | | Site | | Starting Tu12/05/18 at 0830, | | AM PST | | | | | Until Tue12/05/18 at 0830 | | | | | [...] | | | NEEDED, 1 dose, Starting Tu | | AM PST | | | [...]
--- OUTSIDE RECORDS SUMMARY | ~2019-08-12 | XMS | Encounter Summary ---
Demographics + + + | Address | [address] | | | [place] [address] | + + + | Home Phone [...] Team Providers + +------+ + | Care Monologist Name | Role | Phone | + [...] + + | 06/22/ | Telephone | VAYG Odom | Ilene [place], | Returning Phone Call | | 2017 | | Pain Center at | SPRINKLER DRIVER [address] | | | | | [facility] | Ave [place], [place] | | | | | [address] | [address] | | | | | Mailcode: CH15P | [phone] | | | | | [facility] | | | | | | and Healing, | | | | | | Building | | | | | | Floor [place], [place] | | | | | | [address] | | | | | | [phone] | | | +--------+ + + + [...]
--- OUTSIDE RECORDS SUMMARY | ~2019-08-12 | XMS | Encounter Summary ---
Demographics + + + | Address | [address] | | | [place] [address] | + + + | Home Phone [...] Team Providers + +------+ + | Care Editor City Name | Role | Phone | + [...] Rd | | | | | | [place], [place] | | | | | | [address] | | | +--------+ + + + [...]
--- OUTSIDE RECORDS SUMMARY | ~2019-08-12 | XMS | Encounter Summary ---
Demographics + + + | Address | [address] | | | [place] [address] | + + + | Home Phone [...] Providers + +------+ + | Care Regional Commercial Sales Manager Name | Role | Phone | + +------+ + | Justo Vazquez MD | PCP | | + +------+ + Encounter Details +--------+ + + + + | Date | Type | Department | Care Team | Description | +--------+ + + + + | 03/12/ | Career Development Specialist | [facility] Comprehensive | Alex Sanchez, | Complex regional | | 2019 | | Pain Center at | ,PhD [address] [facility] | pain syndrome type 1 | | | | [facility] | [address] | of left lower | | | | [address] | [place], [place] | extremity; S/P | | | | Mailcode: CH15P | [phone] | insertion of spinal | | | | Center for [facility] | [phone] | cord stimulator | | | | and Healing, | | | | | | Building | | | | | | Floor [place], [place] | | | | | | [address] | | | | | | [phone] | | | +--------+ + + + [...]
--- OUTSIDE RECORDS SUMMARY | ~2019-08-12 | XMS | Encounter Summary ---
Demographics + + + | Address | [address] | | | [place] [address] [...] Team Providers + +------+ + | Care Adolescent Medicine Specialist Name | Role | Phone | + +------+ + | Justo Vazquez MD | PCP | | + +------+ + Encounter Details +--------+ + + + + | Date | Type | Department | Care Team | Description | +--------+ + + + + | 06/12/ | Hospital | Radiology/Imaging | Alex Sanchez, | | | 2018 | Encounter | Lab at [facility] [address] | ,PhD [address] [facility] | | | | | [address] Mailcode: | [address] | | | | | [address] for | [place], [place] | | | | | Health and Healing, | [address] | | | | | [address] | [phone] | | | | | [place], [place] | | | | | | [address] | | | | | | [phone] | | | +--------+ + + + [...]
--- OUTSIDE RECORDS SUMMARY | ~2019-08-12 | XMS | Encounter Summary ---
Demographics + + + | Address | [address] | | | [place] [address] | + + + | Home Phone [...] Team Providers + +------+ + | Care Prototype Deicer Assembler Name | Role | Phone | + +------+ + | Justo Vazquez MD | PCP | | + +------+ + Encounter Details +--------+ + + + + | Date | Type | Department | Care Team | Description | +--------+ + + + + | 12/28/ | Telephone | [facility] | Ilene Bright, | | | 2019 | | Pain Center at | BREWER HELPER [address] | | | | | [facility] | Ave [place], [place] | | | | | [address] | [address] | | | | | Mailcode: CH15P | [phone] | | | | | [facility] | | | | | | and Healing, | | | | | | | | | | | | [place], [place] | | | | | | [address] | | | | | | [phone] | | | +--------+ + + + [...]
--- OUTSIDE RECORDS SUMMARY | ~2019-08-12 | XMS | Encounter Summary ---
Demographics + + + | Address | [address] | | | [place] [address] | + + + | Home Phone [...] Team Providers + +------+ + | Care Retread Operator Name | Role | Phone | [...] [address] | | | | | [facility] | [facility], | | | | | [address] | [place] [address] | | | | | Mailcode: CH15 | [phone] | | | | | [facility] | | | | | | and Healing, | | | | | | Building | | | | | | Floor [place], [place] | | | | | | [address] | | | | | | [phone] | | | +--------+ + + + [...]
--- OUTSIDE RECORDS SUMMARY | ~2019-08-12 | XMS | Encounter Summary ---
Demographics + + + | Address | [address] | | | [place] [address] | + + + | Home Phone [...] Providers + +------+ + | Care Staff Forester Name | Role | Phone | [...] Medical Records | | 2017 | | [place] [id number] | [address] | Review | | | | [address] | [address] [place], | | | | | Mailcode: [place] | [place] [address] | | | | | for Health and | [phone] | | | | | [facility] [address] | | | | | | [place], [place] | | | | | | [address] | | | | | | [phone] | | | +--------+ + + + [...]
--- OUTSIDE RECORDS SUMMARY | ~2019-08-12 | XMS | Encounter Summary ---
Demographics + + + | Address | [address] | | | [place] [address] | + + + | Home Phone [...] Team Providers + +------+ + | Care Disability Case Manager Name | Role | Phone | + +------+ + | Justo Vazquez MD | PCP | | + +------+ + Encounter Details +--------+ + + + + | Date | Type | Department | Care Team | Description | +--------+ + + + + | 07/26/ | MyChart | [facility] Comprehensive | Ilene Bright, | Labs | | 2017 | Encounter | Pain Center at | LIMOUSINE RENTAL CLERK [address] | | | | | [facility] | Ave [place], [place] | | | | | [address] | [address] | | | | | Mailcode: CH15 | [phone] | | | | | [facility] | | | | | | and Healing, | | | | | | | | | | | | [place], [place] | | | | | | [address] | | | | | | [phone] | | | +--------+ + + + [...]
--- OUTSIDE RECORDS SUMMARY | ~2019-08-12 | XMS | Encounter Summary ---
Demographics + + + | Address | [address] | | | [place] [address] | + + + | Home Phone [...] Team Providers + +------+ + | Care Ornamental Metal Erector Apprentice Name | Role | Phone | [...] | Encounter | Lab at [facility] [address] | [address] | | | | | [address] Mailcode: | [place], [place] | | | | | [facility] | [address] | | | | | and [address], | [phone] | | | | | | | | | | | Floor [place], [place] | | | | | | [address] | | | | | | [phone] | | | +--------+ + + + [...]
--- OUTSIDE RECORDS SUMMARY | ~2019-08-12 | XMS | Encounter Summary ---
Demographics + + + | Address | [address] | | | [place] [address] | + + + | Home Phone [...] Team Providers + +------+ + | Care Sand Conditioner Name | Role | Phone | + [...] | Diagnoses | Beulah | Edu Pt Ram Press Operator | | | | Therapy | CRPS | Janak Martinez MD | [address] | | | | | (complex | [address] | | | | | regional | [address] | Mailcode: | | | | | pain | Mailstop | [facility] | | | | | syndrome), | [id number] | for Health | | | | | lower limb | [place], [place] | and Healing, | | | | | Gait | [address] | Building 1 | | | | | disturbance | Phone: | [place], [place] | | | | | Muscle pain | [phone] | [phone] | | | | | Procedures | Fax: | Phone: | | | | | PHYSICAL | [phone] | [phone] | | | | | THERAPY | [...] | | | [place] | Ave [place], [place] | syndrome), lower | | | | [address] | [phone] | limb (Primary Dx) | | | | Mailcode: CH3[facility] | | | | | | [facility] | Specialist, Edu | | | | | and Healing, | Exercise [address] | | | | | Building | [address] [place], | | | | | Floor [place], [place] | [place] [address] | | | | | [address] | | | | | | [phone] | | | +--------+---------+ + + + [...] might be different f rom the original. [id number] BRODY FARAH Date of : 1990 Start of care: 02/14/2012 Date of onset: 02/14/2012 Referring/Attending Practitioner: Janak Riojas MD . Primary/Referral Diagnosis/ICD-9: 355.71B CRPS (complex regional pain syndrome), lower limb Insurance: Payor: [facility] [employer] [facility] Plan: BCBS OUT OF STATE Product Type: PP O Service period from: 02/14/2012 to: 08/12/2012 Number visits used/authorized: 02/23 [facility] PHYSICAL THERAPY PROGRESS NOTE SUBJECTIVE: Age: [...] any change in their status. Guillermo Sanon [facility] Outpatient Rehabilitation Services Mailcode: Ch3p 6090 [facility], [address] [place] [address] documented in this encounter Plan of [...]
--- OUTSIDE RECORDS SUMMARY | ~2019-08-12 | XMS | Encounter Summary ---
Demographics + + + | Address | [address] | | | [place] [address] | + + + | Home Phone [...] Team Providers + +------+ + | Care Ship Rigger Name | Role | Phone | + [...] | | | sympathetic | [place] | [address]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 | FAMILY | Mailstop | | | | | of lower | MEDICINE P | [id number] | | | | | limb | [address] | [place], [place] | | | | | | [place], | [address] | | | | | | [place] [address] | Phone: | | | | | | Phone: | [phone] | | | | | | [phone] | Fax: | | | | | | Fax: | [phone] | | | | | | [phone] | | +--------+--------+ + + + + Encounter Details +--------+---------+ + + + | Date | Type | Department | Care Team | Description | +--------+---------+ + + + | 09/04/ | Office | [facility] | Dale Cantu, | CRPS (complex | | 2011 | Visit | Pain Center at | [address] [facility] | regional pain | | | | [facility] | [facility] [id number] | syndrome), lower | | | | [address] | [place], [place] | limb; Gait | | | | Mailcode: CH15P | [address] | disturbance; Sleep | | | | [facility] | [phone] | disturbance, | | | | and Healing, | | unspecified; | | | | | | Adjustment reaction | | | | Floor [place], [place] | | | | | | [address] | | | | | | [phone] | | | +--------+---------+ + + + [...] CRPS patients (Loretta Rousseau, et al. Katrina Direct Mail Clerk Med. 2010;152:152-158) . Bisphosphonate trial. Typically, I [...] Cantu MD - 09/04/2012 7:45 AM PDT [facility] Return Visit with [...] and a pain drawing which I reviewed. [facility] Brief Pain Inventory: (ten= worst possible [...] cord stimulator trial last month with St shopatplaces equipment wit h no benefit to her [...] Hemroidectomy Trial spinal cord stimulator leads 08/02/2012 [facility], Surgeon: Dale Cantu MD Family [...] The Review of Systems obtained by the [facility] was reviewed. Additional Review of Systems [...] of Pain: 13(1):17-21, 2008). DALE CANTU MD Pack Press Operator, [facility] Protocol Officer, Pain Medicine Professor, Anesthesiology & Perioperative Medicine [...]
--- OUTSIDE RECORDS SUMMARY | ~2019-08-12 | XMS | Encounter Summary ---
Demographics + + + | Address | [address] | | | [place] [address] | + + + | Home Phone [...] Team Providers + +------+ + | Care Pinking Sewing Machine Operator Name | Role | Phone | + +------+ + | Justo Vazquez MD | PCP | | + +------+ + Encounter Details +--------+ + + + + | Date | Type | Department | Care Team | Description | +--------+ + + + + | 07/28/ | Documentati | [facility] | Ilene Bright, | | | 2017 | on | Pain Center at | INGREDIENT SCALER [address] | | | | | [facility] | Ave [place], [place] | | | | | [address] | [address] | | | | | Mailcode: CH15P | [phone] | | | | | [facility] | | | | | | and Healing, | | | | | | | | | | | | [place], [place] | | | | | | [address] | | | | | | [phone] | | | +--------+ + + + [...]
--- OUTSIDE RECORDS SUMMARY | ~2019-08-12 | XMS | Encounter Summary ---
Demographics + + + | Address | [address] | | | [place] [address] | + + + | Home Phone [...] Team Providers + +------+ + | Care Tissue Technician Name | Role | Phone | + +------+ + | Justo Vazquez MD | PCP | | + +------+ + Encounter Details +--------+ + + + + | Date | Type | Department | Care Team | Description | +--------+ + + + + | 12/28/ | [employer] | [facility] | Alex Sanchez, | Arthralgia of lower | | 2018 | | Pain Center at | ,PhD [address] | leg, unspecified | | | | [facility] | [address] | laterality (Primary | | | | [address] | [place], [place] | Dx) | | | | Mailcode: CH15P | [address] | | | | | [facility] for [facility] | [phone] | | | | | and Healing, | | | | | | [facility] | | | | | | Floor [place], [place] | | | | | | [address] | | | | | | [phone] | | | +--------+ + + + [...]
--- OUTSIDE RECORDS SUMMARY | ~2019-08-12 | XMS | Encounter Summary ---
Demographics + + + | Address | [address] | | | [place] [address] | + + + | Home Phone [...] Team Providers + +------+ + | Care Academic Affairs Director Name | Role | Phone | [...] [facility] | evaluation (No | | | | [facility] | [facility] [id number] | evidence of drug | | | | [address] | [place], [place] | abuse) | | | | Mailcode: CH15 | [address] | | | | | [facility] | [phone] | | | | | and Healing, | | | | | | Building | | | | | | Floor [place], [place] | | | | | | [address] | | | | | | [phone] | | | +--------+ + + + [...]
--- OUTSIDE RECORDS SUMMARY | ~2019-08-12 | XMS | Encounter Summary ---
Demographics + + + | Address | [address] | | | [place] [address] | + + + | Home Phone [...] Team Providers + +------+ + | Care Bearing Maker Name | Role | Phone | [...] | Diagnoses | Beulah | Edu Pt Weapons System Instrument Mechanic | | | | Therapy | CRPS | Janak Martinez MD | [address] | | | | | (complex | [address] | | | | | regional | [address] | Mailcode: | | | | | pain | Mailstop | [facility] | | | | | syndrome), | [id number] | for Health | | | | | lower limb | [place], [place] | and Healing, | | | | | Gait | [address] | [address] | | | | | disturbance | Phone: | [place], [place] | | | | | Muscle pain | [phone] | [address] | | | | | Procedures | Fax: | Phone: | | | | | PHYSICAL | [phone] | [phone] | | | | | THERAPY | [...] | | | [place] | Ave [place], [place] | syndrome), lower | | | | [address] | [phone] | limb (Primary Dx) | | | | Mailcode: CH3P | | | | | | [facility] | | | | | | and Healing, | | | | | | [address] | | | | | | Floor [place], [place] | | | | | | [address] | | | | | | [phone] | | | +--------+---------+ + + + [...] might be different f rom the original. [id number] BRODY FARAH Date of : 1990 Start of care: 02/14/2012 Date of onset: 02/14/2012 Referring/Attending Practitioner: Janak Riojas MD . Primary/Referral Diagnosis/ICD-9: 355.71B CRPS (complex regional pain syndrome), lower limb Insurance: Payor: [facility] Plan: BCBS OUT OF STATE Product Type: PP O Service period from: 02/14/2012 to: 08/12/2012 Number visits used/authorized: 12/26 [facility] PHYSICAL THERAPY PROGRESS NOTE SUBJECTIVE: Age: [...] less stressful. Now she is working at [employer] 2-3 hours per week, and spends a [...] sometimes pain meds. Social History: lives in [place], 22 years old, not working currently, in [...] or concerns about therapy: she lives in [place]. She is r equesting family members or [...] any change in their status. [facility] Outpatient Rehabilitation Services Mailcode: Ch3p 2267 [facility], 1st Floor [facility] [address] documented in this encounter Plan of Treatment Not on filedocumented as of this encounter Procedures + +--------+ + + + | Procedure Name | Priori | Date/Time | Associated Diagnosis | Comments | | | ty | | | | + +--------+ + + + | [place] THERAPEUTIC | Routin | 05/03/2012 | CRPS [...]
--- OUTSIDE RECORDS SUMMARY | ~2019-08-12 | XMS | Encounter Summary ---
Demographics + + + | Address | [address] | | | [place] [address] | + + + | Home Phone [...] Team Providers + +------+ + | Care Interviewing Clerk Name | Role | Phone | + +------+ + | Justo Vazquez MD | PCP | | + +------+ + Encounter Details +--------+ + + + + | Date | Type | Department | Care Team | Description | +--------+ + + + + | 05/12/ | MyChart | Pain Center at [facility] | Ewa Melchor, | RE: Schedule change | | 2017 | Encounter | 15th Floor [address] | COMMUNITY LIVING INSTRUCTOR [address] | | | | | [address] Mailcode: | [address] | | | | | [facility] [place] | [place] [address] | | | | | Health and Healing, | [phone] | | | | | | | | | | | Floor [place], [place] | | | | | | [address] | | | | | | [phone] | | | +--------+ + + + [...]
--- OUTSIDE RECORDS SUMMARY | ~2019-08-12 | XMS | Encounter Summary ---
Demographics + + + | Address | [address] | | | [place] [address] | + + + | Home Phone [...] Team Providers + +------+ + | Care Motorcycle Technician Name | Role | Phone | [...] Oliveira | | 2011 | IP | [address] | | House - Approved | | | | [address] [place], | | | | | | [place] [address] | | | +--------+ + + + [...]
--- OUTSIDE RECORDS SUMMARY | ~2019-08-12 | XMS | Encounter Summary ---
Demographics + + + | Address | [address] | | | [place] [address] | + + + | Home Phone [...] + +------+ + | Care Retail Sales Professional Name | Role | Phone | + +------+ + | Justo Vazquez MD | PCP | | + +------+ + Encounter Details +--------+ + + + + | Date | Type | Department | Care Team | Description | +--------+ + + + + | 12/05/ | Procedure | [facility] | | | | 2019 | Pass | [place] [facility] | | | | | | and Healing Surgery | | | | | | Center Admitting | | | | | | Desk Located on the | | | | | | 4th floor [address] | | | | | | [address] [place], | | | | | | [place] [address] | | | +--------+ + + + [...]
--- OUTSIDE RECORDS SUMMARY | ~2019-08-12 | XMS | Encounter Summary ---
Demographics + + + | Address | [address] | | | [place] [address] | + + + | Home Phone [...] Team Providers + +------+ + | Care Pre Sales Systems Engineer Name | Role | Phone [...] Ilene Bright, | Care Coordination | | 2017 | | Pain Center at | QUALITY CONTROL ENGINEER [address] | | | | | [facility] | Ave [place], [place] | | | | | [address] | [address] | | | | | Mailcode: CH15P | [phone] | | | | | [facility] | | | | | | and Healing, | | | | | | Building | | | | | | Floor [facility] [place] | | | | | | [address] | | | | | | [phone] | | | +--------+ + + + [...]
--- OUTSIDE RECORDS SUMMARY | ~2019-08-12 | XMS | Encounter Summary ---
Demographics + + + | Address | [address] | | | [place] [address] | + + + | Home Phone [...] Providers + +------+ + | Care Manager Winter Name | Role | Phone | + [...] | Diagnoses | Beulah | Edu Pt Rock Crusher Operator | | | | Therapy | CRPS | Janak Martinez MD | [address] | | | | | (complex | [address] | | | | | regional | [address] | Mailcode: | | | | | pain | Mailstop | [facility] | | | | | syndrome), | [id number] | for Health | | | | | lower limb | [place], [place] | and Healing, | | | | | Gait | [address] | Building [address] | | | | | disturbance | Phone: | [place], [place] | | | | | Muscle pain | [phone] | [address] | | | | | Procedures | Fax: | Phone: | | | | | PHYSICAL | [phone] | [phone] | | | | | THERAPY | [...] regional pain | | | | [facility] | Ave [place], [place] | syndrome), lower | | | | [address] | [phone] | limb (Primary Dx) | | | | Mailcode: CH3P | | | | | | [facility] | | | | | | and Healing, | | | | | | Building 1 | | | | | | Floor [place], [place] | | | | | | [address] | | | | | | [phone] | | | +--------+---------+ + + + [...] might be different f rom the original. [id number] BRODY FARAH Date of : 1990 Start of care: 02/14/2012 Date of onset: 02/14/2012 Referring/Attending Practitioner: Janak Riojas MD . Primary/Referral Diagnosis/ICD-9: 355.71B CRPS (complex regional pain syndrome), lower limb Insurance: Payor: [facility] Plan: BCBS OUT OF STATE Product Type: PP O Service period from: 02/14/2012 to: 08/12/2012 Number visits used/authorized: 05/25 [facility] PHYSICAL THERAPY PROGRESS NOTE SUBJECTIVE: Age: 21 [...] any change in their status. Guillermo Sanon [facility] Outpatient Rehabilitation Services Mailcode: Ch3p 99[address] [facility], [address] [place] [address] documented in this encounter Plan of Treatment Not on filedocumented as of this encounter Procedures + +--------+ + + + | Procedure Name | Priori | Date/Time | Associated Diagnosis | Comments | | | ty | | | | + +--------+ + + + | [place] MANUAL THER | Routin | 06/09/2012 | CRPS (complex | | | TECH,1+REGIONS,EA 15 | e | 2:46 PM | regional pain | | | MIN | | PDT | syndrome), lower | | | | | | limb | | + +--------+ + + + | [place] THERAPEUTIC | Routin | 06/09/2012 | CRPS [...]
--- OUTSIDE RECORDS SUMMARY | ~2019-08-12 | XMS | Encounter Summary ---
Demographics + + + | Address | [address] | | | [place] [address] | + + + | Home Phone [...] Team Providers + +------+ + | Care Adhesive Sprayer Name | Role | Phone | [...] Medical Records | | 2017 | | [place] [address] [id number] | [address] | Review | | | | [address] | [address] [place], | | | | | Mailcode: [place] | [place] [address] | | | | | for Health and | [phone] | | | | | [facility] 2 | | | | | | [place], [place] | | | | | | [address] | | | | | | [phone] | | | +--------+ + + + [...]
--- OUTSIDE RECORDS SUMMARY | ~2019-08-12 | XMS | Encounter Summary ---
Demographics + + + | Address | [address] | | | [place] [address] | + + + | Home Phone [...] Team Providers + +------+ + | Care Centralized Traffic Control Operator Name | Role | Phone [...] pain, | [address] | ,PhD [address] | | | | | unspecified | [facility] | [address] | | | | | location | Rd | [facility] | | | | | Procedures | [place], [place] | Rd [place], | | | | | CONSULT TO | [address] | [place] | | | | | PAIN | Phone: | [address] | | | | | MANAGEMENT | [phone] | Phone: | | | | | | Fax: | [phone] | | | | | | [phone] | Fax: | | | | | | | [phone] | +--------+--------+ + + + + Encounter Details +--------+---------+ + + + | Date | Type | Department | Care Team | Description | +--------+---------+ + + + | 05/08/ | Office | [facility] | Alex Sanchez, | Complex regional | | 2018 | Visit | Pain Center at | ,PhD [address] | pain syndrome type 1 | | | | [place] | [address] | of left lower | | | | [address] | [place], [place] | extremity (Primary | | | | Mailcode: CH15P | [address] | Dx); Pain of upper | | | | [facility] | [phone] | abdomen; Intractable | | | | and Healing, | | cyclical vomiting | | | | Building [address] | | with nausea; | | | | Floor [place], [place] | | Disturbance in sleep | | | | [address] | | behavior; 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 It was great [...] MD,P hD - 05/08/2018 10:30 AM PDT [facility] Return Visit Date: 05/08/2018 Chief Complaint Patient presents with Ankle pain Left Foot pain Left History of Present Illness: Tracie Farah is a 27 year old female, whose last appoi ntment at the [facility] was April 19, 2018, [...] time that 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 [facility], Surgeon: Janak Riojas MD Cholecystectomy Appendectomy [...] History Social History Narrative Single. Goes to [employer] with a light load. Has been working at [employer], can' t work on [employer]. Has roommates. Allergies Allergen Reactions Morphine Anaphylaxis [...] by physician. Concentration is 150mg/mL. Compounded by [employer] ) KETOROLAC IM Inject into the muscle [...] and summary of old medical records (source: [employer]), as summarized in the body of the [...] by Sonia Key. Alex Sanchez MD PhD Guide Rail Cleaner Anesthesiology and Pain Management [facility] documented in this encounter Plan of [...]
--- OUTSIDE RECORDS SUMMARY | ~2019-08-12 | XMS | Encounter Summary ---
Demographics + + + | Address | [address] | | | [place] [address] | + + + | Home Phone [...] Team Providers + +------+ + | Care Javascript Programmer Name | Role | Phone | [...] | Diagnoses | Beulah | Edu Pt Winchman/Crane Operator | | | | Therapy | CRPS | Janak Martinez MD | [address] | | | | | (complex | [address] | | | | | regional | [address] | Mailcode: | | | | | pain | Mailstop | [facility] | | | | | syndrome), | [id number] | for Health | | | | | lower limb | [place], [place] | and Healing, | | | | | Gait | [address] | [address] | | | | | disturbance | Phone: | [place], [place] | | | | | Muscle pain | [phone] | [address] | | | | | Procedures | Fax: | Phone: | | | | | PHYSICAL | [phone] | [phone] | | | | | THERAPY | [...] regional pain | | | | [facility] | Ave [place], [place] | syndrome), lower | | | | [address] | [phone] | limb (Primary Dx) | | | | Mailcode: CH3P | | | | | | [facility] | | | | | | and Healing, | | | | | | Building 1 | | | | | | Floor [place], [place] | | | | | | [address] | | | | | | [phone] | | | +--------+---------+ + + + [...] might be different f rom the original. [id number] BRODY FARAH Date of : 1990 Start of care: 02/14/2012 Date of onset: 02/14/2012 Referring/Attending Practitioner: Janak Riojas MD . Primary/Referral Diagnosis/ICD-9: 355.71B CRPS (complex regional pain syndrome), lower limb Insurance: Payor: [facility] Plan: BCBS OUT OF STATE Product Type: PP O Service period from: 02/14/2012 to: 08/12/2012 Number visits used/authorized: 05/25 [facility] PHYSICAL THERAPY PROGRESS NOTE SUBJECTIVE: [...] in their status. Guillermo Sanon [facility] Outpatient Rehabilitation Services Mailcode: Ch3p 9875 [facility], [address] [place] [phone] documented in this encounter Plan of Treatment Not on filedocumented as of this encounter Procedures + +--------+ + + + | Procedure Name | Priori | Date/Time | Associated Diagnosis | Comments | | | ty | | | | + +--------+ + + + | [place] MANUAL THER | Routin | 06/09/2012 | CRPS (complex | | | TECH,1+REGIONS,EA 15 | e | 2:46 PM | regional pain | | | MIN | | PDT | syndrome), lower | | | | | | limb | | + +--------+ + + + | [place] THERAPEUTIC | Routin | 06/09/2012 | CRPS [...]
--- OUTSIDE RECORDS SUMMARY | ~2019-08-12 | XMS | Encounter Summary ---
Demographics + + + | Address | [address] | | | [place] [address] | + + + | Home Phone [...] Providers + +------+ + | Care Aircraft Servicer Name | Role | Phone | + [...] | | | | | Procedures | [place], [place] | | | | | | MR | [id number] | | | | | | ENTEROGRAPHY | Phone: | | | | | | ABDOMEN AND | [phone] | | | | | | PELVIS WWO | Fax: | | | | | | CONTRAST | [phone] | | +--------+--------+ + + + + [...] | | | | | Procedures | [place], [place] | | | | | | MR | [id number] | | | | | | ENTEROGRAPHY | Phone: | | | | | | ABDOMEN AND | [phone] | | | | | | PELVIS WWO | Fax: | | | | | | CONTRAST | [phone] | | +--------+--------+ + + + + [...] | | | | | Procedures | [place], [place] | | | | | | MR | [id number] | | | | | | ENTEROGRAPHY | Phone: | | | | | | ABDOMEN AND | [phone] | | | | | | PELVIS WWO | Fax: | | | | | | CONTRAST | [phone] | | +--------+--------+ + + + + Encounter Details +--------+ + + + + | Date | Type | Department | Care Team | Description | +--------+ + + + + | 01/31/ | Hospital | Diagnostic Imaging | Celia Lin MD | | | 2017 | Encounter | Services at [facility] | [address] | | | | | [address] | [place], [place] | | | | | [address] Mailcode: | [address] | | | | | [address] | [phone] | | | | | [facility] | | | | | | [place], [place] | | | | | | [address] | | | | | | [phone] | | | +--------+ + + + [...]
--- OUTSIDE RECORDS SUMMARY | ~2019-08-12 | XMS | Encounter Summary ---
Demographics + + + | Address | [address] | | | [place] [address] | + + + | Home Phone [...] Team Providers + +------+ + | Care Screener And Blender Operator Name | Role | Phone | + +------+ + | Justo Vazquez MD | PCP | | + +------+ + Encounter Details +--------+ + + + + | Date | Type | Department | Care Team | Description | +--------+ + + + + | 10/09/ | Telephone | [facility] | Alex Sanchez, | | | 2018 | | Pain Center at | ,PhD [address] | | | | | [facility] | [address] | | | | | [address] | [place], [place] | | | | | Mailcode: CH15P | [address] | | | | | [place] for [facility] | [phone] | | | | | and Healing, | | | | | | | | | | | | Floor [place], [place] | | | | | | [address] | | | | | | [phone] | | | +--------+ + + + [...]
--- OUTSIDE RECORDS SUMMARY | ~2019-08-12 | XMS | Encounter Summary ---
Demographics + + + | Address | [address] | | | [place] [address] | + + + | Home Phone [...] Team Providers + +------+ + | Care Straddle Bug Operator Name | Role | Phone | [...] | | syndrome | [place] | [facility] | | | | | type 1 of | Rd | Rd [place], | | | | | left lower | [place], [place] | [place] | | | | | extremity | [address] | [address] | | | | | Procedures | Phone: | Phone: | | | | | REQUEST TO | [phone] | [phone] | | | | | SURGERY | Fax: | Fax: | | | | | RN FAMILY PRACTICE | [phone] | [phone] | +--------+---------+ + + + + Encounter Details +--------+---------+ + + + | Date | Type | Department | Care Team | Description | +--------+---------+ + + + | 12/07/ | Office | [facility] | Eulogio, | Complex regional | | 2019 | Visit | Pain Center at | MD Irene [address] | pain syndrome type 1 | | | | [facility] | [address] [facility], | of left lower | | | | [address] | [place] [address] | extremity (Primary | | | | Mailcode: CH15P | [phone] | Dx); S/P insertion | | | | [facility] | | of spinal cord | | | | and Healing, | | stimulator | | | | Building , | | | | | | Floor [place], [place] | | | | | | [address] | | | | | | [phone] | | | +--------+---------+ + + + [...] Lujan MD - 12/07/2018 9:10 AM PST [facility] Return Visit Date: 12/07/2018 Chief Complaint Patient presents with Back pain Pain in left leg History of Present Illness: Tracie Farah is a 28 year old female, whose last appoi ntment at the [facility] was December 05, 2018, [...] 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 CLINICAL TRIALS SPECIALIST Brief Pain Inventory: (ten= worst possible pain [...] History Social History Narrative Single. Goes to [employer] with a light load. Has been working at [employer], can' t work on [employer]. Has roommates. Allergies Allergen Reactions Morphine Anaphylaxis [...] GRAM-5.86 GRAM SOLUTION Take as directed by [facility]- 2 gallon bowel prep POLYETHYLENE [...] and summary of old medical records (source: [employer]), as summarized in the body of the [...] present for the encounter. Irene Krishnan MD [facility] AT [facility] [address] [facility], 4th Floor Mail Code: CH4Key [place], [place] [address] documented in thi s encounter Plan of Treatment Not on filedocumented as of this encounter Visit Diagnoses + + | Diagnosis | + + | Complex regional pain syndrome type 1 of left lower extremity - Primary | + + | S/P insertion of spinal cord stimulator | + + documented in this encounter
--- OUTSIDE RECORDS SUMMARY | ~2019-08-12 | XMS | Encounter Summary ---
Demographics + + + | Address | [address] | | | [place] [address] | + + + | Home Phone [...] Providers + +------+ + | Care Tie Tape Machine Operator Name | Role | Phone [...] + + | 09/26/ | Telephone | [facility] | Aleta Rebollar MD [address] | Nausea | | 2018 | | Pain Center at | Johnny Slade | | | | | [facility] | [place], [place] | | | | | [address] | [address] | | | | | Mailcode: CH15P | [phone] | | | | | [facility] | | | | | | joana Mack, | | | | | | Building | | | | | | [place], [place] | | | | | | [address] | | | | | | [phone] | | | +--------+ + + + [...]
--- OUTSIDE RECORDS SUMMARY | ~2019-08-12 | XMS | Encounter Summary ---
Demographics + + + | Address | [address] | | | [place] [address] | + + + | Home Phone [...] Providers + +------+ + | Care Jet Operator Name | Role | Phone | [...] [place] | | | | | [facility] | [facility], | | | | | [address] | [place] [address] | | | | | Mailcode: CH15P | [phone] | | | | | [facility] | | | | | | joana Mack, | | | | | | | | | | | | [place], [place] | | | | | | [address] | | | | | | [phone] | | | +--------+ + + + [...]
--- OUTSIDE RECORDS SUMMARY | ~2019-08-12 | XMS | Encounter Summary ---
Demographics + + + | Address | [address] | | | [place] [address] | + + + | Home Phone [...] Providers + +------+ + | Care Customer Support Consultant Name | Role | Phone | + +------+ + | Justo Vazquez MD | PCP | | + +------+ + Encounter Details +--------+ + + + + | Date | Type | Department | Care Team | Description | +--------+ + + + + | 04/03/ | Telephone | [facility] | Alex Sanchez, | | | 2019 | | Pain Center at | ,PhD [address] | | | | | [facility] | [facility] [address] | | | | | [address] | [place], [place] | | | | | Mailcode: CH15P | [address] | | | | | [place] for [facility] | [phone] | | | | | and Healing, | | | | | | | | | | | | Floor [place], [place] | | | | | | [address] | | | | | | [phone] | | | +--------+ + + + [...]
--- OUTSIDE RECORDS SUMMARY | ~2019-08-12 | XMS | Encounter Summary ---
Demographics + + + | Address | [address] | | | [place] [address] | + + + | Home Phone [...] + +------+ + | Care Application Integration Engineer Name | Role | Phone | + +------+ + | Justo Vazquez MD | PCP | | + +------+ + Encounter Details +--------+ + + + + | Date | Type | Department | Care Team | Description | +--------+ + + + + | 05/05/ | Documentati | [facility] | Alex Sanchez, | | | 2018 | on | Pain Center at | ,PhD [address] | | | | | [facility] | [facility] [address] | | | | | [address] | [place], [place] | | | | | Mailcode: CH15P | [address] | | | | | [place] for [facility] | [phone] | | | | | and Healing, | | | | | | | | | | | | Floor [place], [place] | | | | | | [address] | | | | | | [phone] | | | +--------+ + + + [...]
--- OUTSIDE RECORDS SUMMARY | ~2019-08-12 | XMS | Encounter Summary ---
Demographics + + + | Address | [address] | | | [place] [address] | + + + | Home Phone [...] Providers + +------+ + | Care Hot Dipper Name | Role | Phone | + +------+ + | Justo Vazquez MD | PCP | | + +------+ + Encounter Details +--------+ + + + + | Date | Type | Department | Care Team | Description | +--------+ + + + + | 01/11/ | Procedure | Diagnostic Imaging | | | | 2016 | Pass | Services at [facility] | | | | | | [address] | | | | | | Giuliana Maldonado Mailcode: | | | | | | [address] | | | | | | [facility] | | | | | | [place], [place] | | | | | | [address] | | | | | | [phone] | | | +--------+ + + + [...]
--- OUTSIDE RECORDS SUMMARY | ~2019-08-12 | XMS | Encounter Summary ---
Demographics + + + | Address | [address] | | | [place] [address] | + + + | Home Phone [...] Team Providers + +------+ + | Care Eyelet Punch Operator Name | Role | Phone [...] | | pain | [address] | | | | | Spasticity | [address] | [place], [place] | | | | | Procedures | [place], [place] | [address] | | | | | CONSULT TO | [address] | Phone: | | | | | PAIN | Phone: | [phone] | | | | | MANAGEMENT | [phone] | Fax: | | | | | | Fax: | [phone] | | | | | | [phone] | | +--------+---------+ + + + + [...] | | MD Celia | MD Brendan [address] | | | | | Fibromyalgia | [address] | | | | | Spasticity | [address] | [place] | | | | | Epigastric | [place], [place] | [place], | | | | | pain | [address] | [place] | | | | | Procedures | Phone: | [address] | | | | | REQUEST TO | [phone] | Phone: | | | | | SURGERY | Fax: | [phone] | | | | | SHOTBLAST EQUIPMENT OPERATOR | [phone] | Fax: | | | | | ID INJECT | | [phone] | | | | | TRIGGER | [...] Pain Medicine | Diagnoses | Chasity, | Schedule Clerk Chh1 | | | | / Pain | Abdominal | MD Kenny | [address] | | | | Management | pain, | [address] | Ave | | | | | unspecified | [facility] | Mailcode: | | | | | location | Rd | CH15P Center | | | | | Procedures | [place], [place] | for Health | | | | | CONSULT TO | [address] | and Healing, | | | | | PAIN | Phone: | Building | | | | | MANAGEMENT | [phone] | 1,15th Floor | | | | | | Fax: | [place], [place] | | | | | | [phone] | [address] | | | | | | | Phone: | | | | | | | [phone] | | | | | | | Fax: | | | | | | | [phone] | +--------+--------+ + + + + Encounter Details +--------+---------+ + + + | Date | Type | Department | Care Team | Description | +--------+---------+ + + + | 10/11/ | Office | [facility] | Vern Robertson, | Epigastric pain | | 2017 | Visit | Pain Center at | SHOVE UP [address] | (Primary Dx); | | | | [facility] | [place], [place] | Spasticity | | | | [address] | [address] | | | | | Mailcode: CH15P | [phone] | | | | | [facility] | | | | | | and Martina, | | | | | | Building | | | | | | Floor [place], [place] | | | | | | [address] | | | | | | [phone] | | | +--------+---------+ + + + [...] true warrior! * Please sign up for HangItHART. This is the best way to communicate with me. It will save you time in the long run. The procedure you discussed with your doctor is called: Trigger point injection of abdomina l scar. Please make sure this is scheduled with the Airplane First Officer. PRE-PROCEDURE INSTRUCTIONS 1. Please bring a helper/driver with you as we may give you [...] or blood thinning medications (other than aspirin), [facility] doctor who is doing your procedure will communicate with the provider who is prescribing y our anticoagulant therapy. If you do not have clear instructions on what to do with your an ticoagulant by 2 weeks before your procedure, please contact [facility] to cl arify your instructions. The phone number for questions or concerns is [phone]. * Consider Lidoderm topical or compound prescription [...] muscle hyper tonicity. * Consider increasing your Plainville 3 fats. Plainville-3 fats are precursors to mediators of inflammation [...] oil if approved by your PCP or air hammer stripper. * Eliminate High Fructose Lisco Syrup and Sugar from your diet as [...] review treatment plan. * Follow up with [facility] as needed. It was good to see you today. Thank you for taking the time to see us in the [facility] today. As a reminder, this clinic generally does not prescribe or dispense medi cations. We will send a copy of our notes, including detailed recommendations, to your prim holyrood care provider (PCP). Any prescriptions will need [...] NP - 1 12/11/2016 1:15 PM PST [facility] Return Visit Date: 10/11/2017 Chief Complaint Patient presents with Abdominal pain Back pain Foot pain History of Present Illness: Tracie Farah is a 27 year old female, whose last appoi ntment at the [facility] was 07/11/17 with [...] She reports multiple diagnostic tests conducted at [facility] in [place], [place] including barium swallow and Hydrogen breath [...] management." Her pain is improved by m edications. This condition has remained unchanged since Ms. [...] Torodol shots: only form of symptom relief. NUTRITION SERVICES ASSISTANT Brief Pain Inventory: (ten= worst possible [...] Hemroidectomy Trial spinal cord stimulator leads 08/02/2012 [facility], Surgeon: Janak Riojas MD Cholecystectomy Appendectomy Other [...] History Social History Narrative Single. Goes to [employer] college with a light load. Has been working at [employer], can' t work on [employer]. Has roommates. Allergies Allergen Reactions Morphine Anaphylaxis [...] by physician. Concentration is 150mg/mL. Compounded by [facility] ) LAMOTRIGINE 200 MG TABLET Take [...] GRAM-5.86 GRAM SOLUTION Take as directed by [facility]- 2 gallon bowel prep POLYETHYLENE GLYCOL [...] reviewed. - Review old medical records (from [facility]). Pertinent findings include: abdominal surger [...] review treatment plan. * Follow up with [facility] Pain Center as needed. I, Guillermo Michaels, am scribing for Vern Robertson NP on 10/11/2017 I have reviewed and verified the above scribed note of my visit with this patient as record ed by Guillermo Hope. Vern Robertson NP [facility] AT [facility] 15TH FLOOR [address] [facility] [address] Mail Code: Ch15p [place] [address] documented in this e ncounter Plan of Treatment Not on filedocumented as of this encounter Visit Diagnoses + + | Diagnosis | + + | Epigastric pain - Primary Abdominal pain, epigastric | + + | Spasticity Abnormal involuntary movements | + + documented in this encounter
--- OUTSIDE RECORDS SUMMARY | ~2019-08-12 | XMS | Encounter Summary ---
Demographics + + + | Address | [address] | | | [place] [address] | + + + | Home Phone [...] Providers + +------+ + | Care Pack Puller Name | Role | Phone | + +------+ + | Justo Vazquez MD | PCP | | + +------+ + Encounter Details +--------+ + + + + | Date | Type | Department | Care Team | Description | +--------+ + + + + | 09/20/ | Telephone | [facility] | Ilene Bright, | | | 2017 | | Pain Center at | SALES ASSOCIATE FISHING [address] | | | | | [facility] | Ave [place], [place] | | | | | [address] | [address] | | | | | Mailcode: CH15P | [phone] | | | | | [facility] | | | | | | and Healing, | | | | | | | | | | | | [place], [place] | | | | | | [address] | | | | | | [phone] | | | +--------+ + + + [...]
--- OUTSIDE RECORDS SUMMARY | ~2019-08-12 | XMS | Encounter Summary ---
Demographics + + + | Address | [address] | | | [place] [address] | + + + | Home Phone [...] Providers + +------+ + | Care Service Delivery Management Consultant Name | Role | Phone | [...] enterography | | 2017 | Encounter | [place] [facility] [address] | [address] | results | | | | [address] | [place] [place], | | | | | Mailcode: [place] | [place] [address] | | | | | for Health and | [phone] | | | | | [facility] 2 | | | | | | [place], [place] | | | | | | [address] | | | | | | [phone] | | | +--------+ + + + [...]
--- OUTSIDE RECORDS SUMMARY | ~2019-08-12 | XMS | Encounter Summary ---
Demographics + + + | Address | [address] | | | [place] [address] | + + + | Home Phone [...] Providers + +------+ + | Care Home Management Supervisor Name | Role | Phone | + +------+ + | Justo Vazquez MD | PCP | | + +------+ + Encounter Details +--------+ + + + + | Date | Type | Department | Care Team | Description | +--------+ + + + + | 08/03/ | Telephone | [facility] | Alex Sanchez, | | | 2018 | | Pain Center at | ,PhD [address] | | | | | [facility] | [address] | | | | | [address] | [place], [place] | | | | | Mailcode: CH15P | [address] | | | | | [place] for [facility] | [phone] | | | | | and Healing, | | | | | | | | | | | | Floor [place], [place] | | | | | | [address] | | | | | | [phone] | | | +--------+ + + + [...]
--- OUTSIDE RECORDS SUMMARY | ~2019-08-12 | XMS | Encounter Summary ---
Demographics + + + | Address | [address] | | | [place] [address] | + + + | Home Phone [...] Team Providers + +------+ + | Care Bight Maker Name | Role | Phone | [...] | Procedures | [place] | [place], | | | | | CONSULT TO | [address] | [place] | | | | | PAIN | Phone: | [address] | | | | | MANAGEMENT | [phone] | Phone: | | | | | | Fax: | [phone] | | | | | | [phone] | Fax: | | | | | | | [phone] | + +--------+ + + + + Encounter Details +--------+---------+ + + + | Date | Type | Department | Care Team | Description | +--------+---------+ + + + | 04/23/ | Office | Pain Center at [facility] | Alex Sanchez, | Complex regional | | 2019 | Visit | 15th Floor [address] | ,PhD [address] | pain syndrome type 1 | | | | [address] Mailcode: | [address] | of left lower | | | | [facility] Center for | [facility] [place] | extremity (Primary | | | | Health and Healing, | [address] | Dx); Other chronic | | | | Building | [phone] | pain ; S/P insertion | | | | Floor [place], [place] | | of spinal cord | | | | [address] | | stimulator | | | | [phone] | | | +--------+---------+ + + + [...] the lab on the 1st floor of [facility] to provide a urine sample for [...] Alex Sanchez MD,PhD [facility] [...] orthopedic surgeon to have the boone rem cday. Despite trying to exercise more at the [...] - DRG Spinal cord stimulator trial with [place] system (09/25/2018) with 30-40% im provement of typical pain with significant improvement in mobility and function - Left popliteal/sciatic nerve injection AND abdominal scar trigger point injection ( 018) - Spinal cord stimulator trial with [employer] by Janak Riojas MD (08/02/2012) - Left L3 lumbar sympathetic block by Janak Riojas MD (03/01/2012) Opioid Risk Tool (ORT) 04/23/2019 SPECIALTIES OPERATOR Brief Pain Inventory: (ten= worst possible [...] Hemroidectomy Trial spinal cord stimulator leads 08/02/2012 [place], Surgeon: Janak Riojas MD Cholecystectomy Appendectomy Other [...] History Social History Narrative Single. Goes to [employer] with a light load. Has been working at [employer], can' t work on [employer]. Has roommates. Allergies Allergen Reactions Morphine Anaphylaxis [...] and summary of old medical records (source: [employer]), as summarized in the body of the [...] We performed DRG SCS trial with the [employer] System on 09/25/2018 which provided her with [...] ago. She has not spoken with the [employer] representatives about this. I encouraged her to [...] Key. Aleta Rebollar MD PAIN CENTER AT [facility] 15TH FLOOR [address] [facility] Mail Code: [place]15[place] [address] do cumented in this encounter [...] | + + + + + | [facility] | [address] | [place] [address] | | | SERVICES, CORE | GUILLERMO [...]
--- OUTSIDE RECORDS SUMMARY | ~2019-08-12 | XMS | Encounter Summary ---
Demographics + + + | Address | [address] | | | [place] [address] | + + + | Home Phone [...] Team Providers + +------+ + | Care Cigarette Vendor Name | Role | Phone | + +------+ + | Justo Vazquez MD | PCP | | + +------+ + Encounter Details +--------+ + + + + | Date | Type | Department | Care Team | Description | +--------+ + + + + | 03/17/ | MyChart | [facility] [place]ene | Yun Frey C DEVELOPER | Welcome | | 2017 | Encounter | Pain Center at | [address] | | | | | [facility] | [place], [place] | | | | | [address] | [address] | | | | | Mailcode: CH15P | [phone] | | | | | [facility] | | | | | | and Healing, | | | | | | | | | | | | Floor [place], [place] | | | | | | [address] | | | | | | [phone] | | | +--------+ + + + [...]
--- OUTSIDE RECORDS SUMMARY | ~2019-08-12 | XMS | Encounter Summary ---
Demographics + + + | Address | [address] | | | [place] [address] | + + + | Home Phone [...] Team Providers + +------+ + | Care Detective Youth Bureau Name | Role | Phone | + [...] | | Pain | Complex | Ilene, MOLD WORKER | Dawnana M, | | | | Management | regional | [address] | [address] | | | | | pain | [address] | [address] | | | | | syndrome | [place], [place] | [place], [place] | | | | | type 1 of | [address] | [address] Phone: | | | | | left lower | Phone: | [phone] | | | | | extremity | [phone] | Fax: | | | | | Intractable | Fax: | [phone] | | | | | cyclical | [phone] | | | | | | vomiting [...] | | | | | | | [place] | | | | | | | PSYCHIATRIC | | | | | | | DIAGNOSTIC | | | | | | | EVAL, NO MED | | | | | | | SVCS [place] | | | | | | | PSYCH TSTNG | | | | | | | PSYCH/PHYS | | | | | | | [place] | | | | | | | [...] Pain Medicine | Diagnoses | Chasity, | Industrial Sales Engineer Chh1 | | | | / Pain | Abdominal | MD Kenny | [address] | | | | Management | pain, | [address] | Ave | | | | | unspecified | [facility] | Mailcode: | | | | | location | Rd | CH15P Center | | | | | Procedures | [place], [place] | for Health | | | | | CONSULT TO | [address] | and Healing, | | | | | PAIN | Phone: | Building | | | | | MANAGEMENT | [phone] | 1,15th Floor | | | | | | Fax: | [place], [place] | | | | | | [phone] | [address] | | | | | | | Phone: | | | | | | | [phone] | | | | | | | Fax: | | | | | | | [phone] | +--------+--------+ + + + + Encounter Details +--------+---------+ + + + | Date | Type | Department | Care Team | Description | +--------+---------+ + + + | 04/25/ | Office | [facility] | Ilene Bright, | Abdominal pain, | | 2017 | Visit | Pain Center at | MOLD WORKER [address] | unspecified location | | | | [facility] | Ave [place], [place] | (Primary Dx); | | | | [address] | [address] | Complex regional | | | | Mailcode: CH15P | [phone] | pain syndrome type 1 | | | | [place] for [facility] | | of left lower | | | | and Healing, | | extremity; | | | | Building , | | Intractable cyclical | | | | Floor [place], [place] | | vomiting with | | | | [address] | | nausea; | | | | [phone] | | Constipation, | | | | [...] Freddie Guadalupe MD [email or web address] Ilene Childs DNP, MOLD WORKER-C Adult Pain [facility] [address] [place] [address] documented in this encounter Progress Notes Ilene Bright FNP - 04/25/2017 1:35 PM PDTFormatting of this note might be different fr om the original. Date: 04/25/2017 was referred for pain management consultation by Kenny Gaspar MD [address] [place] [phone] Reason for consult: abdominal pain Chief Complaint Patient presents with Abdominal pain Back pain History of Present Illness: Tracie Farah is a 26 year old female with a history of depression, complex regional pain syndrome (left lower extremity) for this she follows with a neurologist at [facility] in [facility]. She has been stable on her current [...] better) Just started her on Celebrex (terminal clerk option) Intranasal ketamine Lamotrigine Memantine Ibuprofen Cymbalta 20 mg BID Cyclobenzaprine Her nonmedication treatment has not included acupuncture, etc due to limited income. She feels that the most effective treatments include: medication (toradol). lives in [place], [place] alone and with her children. She receives disability. does not have specific goals for today's appointment. [facility] QUESTIONNAIRE BRIEF PAIN 04/24/2017 Please rate [...] has interfered with your sleep : 8 [facility] New Patient Questionnaire Responses 04/24/2017 What [...] or to get rid of a hangover (eye-boring machine set up operator)? No Do you drink alcohol to decrease [...] Social History Narrative Single. Goes to [employer] with a light load. Has been working at [employer], can' t work on [employer]. Has roommates. Allergies Allergen Reactions Morphine Anaphylaxis [...] by physician. Concentration is 150mg/mL. Compounded by [facility] ) LAMOTRIGINE 200 MG TABLET Take [...] GRAM-5.86 GRAM SOLUTION Take as directed by [facility] Digestive Health- 2 gallon bowel prep POLYETHYLENE GLYCOL 3350 17 GRAM/DOSE ORAL POWDER Take 17 g by mouth once daily. PROMETHAZINE 12.5 MG TABLET Take 12.5 mg by mouth four times daily as needed for nausea/vom iting. SUCRALFATE 1 GRAM TABLET Take 1 g by mouth four times daily. Radiology/Diagnostic Tests: MR ENTEROGRAPHY ABDOMEN AND PELVIS WWO CONTRAST Order: [id number] Performed: 01/31/2017 4:34 PM Status: Final result [...] 3:50 PM X-RAY ABDOMEN 1 VIEW Order: [id number] Performed: 03/19/2017 6:52 AM Status: Final result [...] and summary of old medical records (source: [facility]), as summarized in the body of the [...] possible opioid-sparing effects (Stevie Paulino et al.C [employer], (8):165-36, 2007) and evidence that it can work [...] The Fibro Manual, by Freddie Guadalupe MD [email or web address] sensitization Ilene Childs DNP, MOLD WORKER-C Adult Pain [facility] [address] [place] [address] Display Progress Note in Glownethart: No documented in this e ncounter Plan [...]
--- OUTSIDE RECORDS SUMMARY | ~2019-08-12 | XMS | Encounter Summary ---
Demographics + + + | Address | [address] | | | [place] [address] | + + + | Home Phone [...] Providers + +------+ + | Care Research Hydraulic Engineer Name | Role | Phone | + +------+ + | Justo Vazquez MD | PCP | | + +------+ + Encounter Details +--------+ + + + + | Date | Type | Department | Care Team | Description | +--------+ + + + + | 12/02/ | Document-Sc | Health Information | Unknown . | | | 2017 | anned | Services [address] | | | | | | [address] | | | | | | Mailcode: OP17A | | | | | | [facility] | | | | | | [place], [place] | | | | | | [address] | | | | | | [phone] | | | +--------+ + + + [...]
--- OUTSIDE RECORDS SUMMARY | ~2019-08-12 | XMS | Encounter Summary ---
Demographics + + + | Address | [address] | | | [place] [address] | + + + | Home Phone [...] Providers + +------+ + | Care Supervisor Dumping Name | Role | Phone | + [...] | David Corrales [address] | Giuliana Maldonado [place], | | | | | [address] | [place] [address] | | | | | Joel Mailcode: [id number] | [phone] | | | | | Liane Cai | | | | | | [address] [place], [place] | | | | | | [address] | | | | | | [phone] | | | +--------+ + + + [...]
--- OUTSIDE RECORDS SUMMARY | ~2019-08-12 | XMS | Encounter Summary ---
Demographics + + + | Address | [address] | | | [place] [address] | + + + | Home Phone [...] Team Providers + +------+ + | Care Email Producer Name | Role | Phone | + +------+ + | Justo Vazquez MD | PCP | | + +------+ + Encounter Details +--------+ + + + + | Date | Type | Department | Care Team | Description | +--------+ + + + + | 04/03/ | Telephone | [facility] | Alex Sanchez, | | | 2019 | | Pain Center at | ,PhD [address] | | | | | [facility] | [address] | | | | | [address] | [place], [place] | | | | | Mailcode: CH15P | [address] | | | | | [place] for [facility] | [phone] | | | | | and Healing, | | | | | | | | | | | | Floor [place], [place] | | | | | | [address] | | | | | | [phone] | | | +--------+ + + + [...]
--- OUTSIDE RECORDS SUMMARY | ~2019-08-12 | XMS | Encounter Summary ---
Demographics + + + | Address | [address] | | | [place] [address] | + + + | Home Phone [...] Team Providers + +------+ + | Care Cast Iron Drain Pipe Layer Name | Role | Phone | [...] Rd | | | | | | [place], [place] | | | | | | [address] | | | +--------+ + + + [...]
--- OUTSIDE RECORDS SUMMARY | ~2019-08-12 | XMS | Encounter Summary ---
Demographics + + + | Address | [address] | | | [place] [address] | + + + | Home Phone [...] Team Providers + +------+ + | Care Collision Mechanic Name | Role | Phone | + +------+ + | Justo Vazquez MD | PCP | | + +------+ + Reason for Referral Consultation (Routine) + +---------+ + + + + | Status | Reason | Specialty | Diagnoses / | Referred By | Referred To | | | | | Procedures | Contact | Contact | + +---------+ + + + + | Authorized | Other | Pain | Diagnoses | Eric, | Scott May | | | | Management | Complex | Lane Torres DC | D, LAC [address] | | | | | regional | [address] | | | | | pain | [address] | [place], [place] | | | | | syndrome | [place], [place] | [address] | | | | | type 1 of | [address] | Phone: | | | | | left lower | Phone: | [phone] | | | | | extremity | [phone] | Fax: | | | | | Midline low | Fax: | [phone] | | | | | back pain | [phone] | | | | | | without [...] | | | MANAGEMENT | | | + +---------+ + + + + Reason for Visit + + + | Reason | Comments | + + + | Low back pain | | + + + | Back pain | | + + + | Neck pain | | + + + | Procedure | | + + + Consultation (Routine) + +---------+ + + + + | Status | Reason | Specialty | Diagnoses / | Referred By | Referred To | | | | | Procedures | Contact | Contact | + +---------+ + + + + | Authorized | Other | Chiropractor | | St Mak, | Eric, | | | | / Pain | | TERESA Odom | Lane Torres DC | | | | Management | | [address] | [address] | | | | | | [address] | Ave | | | | | | [facility] [place] | [place], [place] | | | | | | [address] | [address] | | | | | | Phone: | Phone: | | | | | | [phone] | [phone] | | | | | | Fax: | Fax: | | | | | | [phone] | [phone] | + +---------+ + + + + Encounter Details +--------+---------+ + + + | Date | Type | Department | Care Team | Description | +--------+---------+ + + + | 07/04/ | Office | [facility] Comprehensive | Lane Reyes, | Complex regional | | 2019 | Visit | Pain Center at | DC [address] | pain syndrome type 1 | | | | [facility] | [place], [place] | of left lower | | | | [address] | [address] | extremity (Primary | | | | Mailcode: CH15P | [phone] | Dx); Midline low | | | | [place] for Health | | back pain without | | | | and Healing, | | sciatica, | | | | | | unspecified | | | | Floor [place], [place] | | chronicity; | | | | [address] | | Sacroiliac pain; | | | | [phone] | | Sacral dysfunction; | | | [...] and seeing where she is fallin g anselmo. She describes her typical diet as Pretty [...] and help in coping with the pain. RN CHILD Brief Pain Inventory: (ten= worst possible pain [...] Trial spinal cord stimulator leads 08/02/2012 [facility], Surgeon: Janak Riojas MD Cholecystectomy [...] History Social History Narrative Single. Goes to [employer] college with a light load. Has been working at [employer], can' t work on [email or web address]. Has roommates. Allergies Allergen Reactions Morphine Anaphylaxis [...] Tests: X-RAY SPINE CERV 4 VIEWS Order: [id number] Performed: 06/12/2018 11:40 Status: Final result Visible [...] pain after testing when muscles were relaxing Paige: negative BL "uncomfortabe to lift arms and [...] that the treatment performed by the chiropractic quality assurance intern, Niesha Reveles, was directly observed by myself the primary chiropractor Lane Reyes [place] Visit Diagnoses: ICD-10-CM 1. Complex regional pain syndrome type 1 of left lower extremity G90.522 CONSULT TO PAIN [facility] 2. Midline low back pain without sciatica, unspecified chronicity M54.5 CONSULT TO PAIN [facility] 3. Sacroiliac pain M53.3 CONSULT TO PAIN [...] verified the above note written by Chiropractic quality assurance intern of our visit wit h this patient as recorded by Lane Reyes DC [facility] AT [address] Mail Code: [place]15[place] [address] documented in this e ncounter [...]
--- OUTSIDE RECORDS SUMMARY | ~2019-08-12 | XMS | Encounter Summary ---
Demographics + + + | Address | [address] | | | [place] [address] | + + + | Home Phone [...] Team Providers + +------+ + | Care Last Remodeler Repairer Name | Role | Phone | [...] (plan of care) | | | | [facility] | [facility] | | | | | [address] | [place], [place] | | | | | Mailcode: CH15P | [address] | | | | | [facility] | [phone] | | | | | and Healing, | | | | | | Building | | | | | | [place], [place] | | | | | | [address] | | | | | | [phone] | | | +--------+ + + + [...]
--- OUTSIDE RECORDS SUMMARY | ~2019-08-12 | XMS | Encounter Summary ---
Demographics + + + | Address | [address] | | | [place] [address] | + + + | Home Phone [...] Team Providers + +------+ + | Care Source Inspector Name | Role | Phone | [...] Rd | | | | | | [place], [place] | | | | | | [address] | | | +--------+ + + + [...]
--- OUTSIDE RECORDS SUMMARY | ~2019-08-12 | XMS | Encounter Summary ---
Demographics + + + | Address | [address] | | | [place] [address] | + + + | Home Phone [...] Team Providers + +------+ + | Care Sales/Marketing Name | Role | Phone | + [...] + + | 10/30/ | Refill | [facility] Comprehensive | Alex Sanchez, | Refill Request | | 2018 | | Pain Center at | ,PhD [address] [facility] | | | | | [facility] | [address] | | | | | [address] | [place], [place] | | | | | Mailcode: CH15 | [address] | | | | | [facility] | [phone] | | | | | and Martina, | | | | | | Building | | | | | | Floor [place], [place] | | | | | | [address] | | | | | | [phone] | | | +--------+--------+ + + + [...]
--- OUTSIDE RECORDS SUMMARY | ~2019-08-12 | XMS | Encounter Summary ---
Demographics + + + | Address | [address] | | | [place] [address] | + + + | Home Phone [...] Team Providers + +------+ + | Care Heating Systems Installer Name | Role | Phone | [...] | | | [facility] | [address] | | | | | [address] | [place], [place] | | | | | Mailcode: CH15P | [address] | | | | | [place] for [facility] | [phone] | | | | | and Healing, | | | | | | | | | | | | Floor [place], [place] | | | | | | [address] | | | | | | [phone] | | | +--------+ + + + [...]
--- OUTSIDE RECORDS SUMMARY | ~2019-08-12 | XMS | Encounter Summary ---
Demographics + + + | Address | [address] | | | [place] [address] | + + + | Home Phone [...] Providers + +------+ + | Care Middle Card Tender Name | Role | Phone | [...] | | Department [address] | [address] [facility] | | | | | [address] | [facility] Joel | | | | | [facility] | [place], [place] | | | | | [place], [place] | [address] | | | | | [address] | [phone] | | | | | [phone] | | | | | | | Kay Brown, | | | | | | ,PhD [address] [facility] | | | | | | [facility] | | | | | | [place], [place] | | | | | | [address] | | | | | | [phone] | | | | | | | [...] about "Gastroparesis: Care Instructions", log into your Raynforest account at [email or web address]. You can enter M106 in the mth sense" search box. Not on Raynforest? Review the Raynforest section of your After Visit Summary for directions on ho w to sign up. 3230-1517 [employer]. Care instructions adapted under license by [facility] [place]. This care instruction is for use with your licensed healthmygola professional. If you have questions about a medical condition or this instruction, always ask your healthcare professional. [employer] disclaims any warranty or liabili ty for your use of this information. Content Version: 11.0.843133; Current as of: October 03, 2015 documented [...] | | | LABORATORY | | | STATELESS | | | SERVICES, | | | [...] | + + + + + | [facility] | [address] | [place] [address] | | | SERVICES, CORE | GUILLERMO [...] DEPT OF | [address] | [place], [place] | | | CARDIOLOGY | [address] | [address] | | + + + + + [...] [facility] | [address] | [place] [address] | | | SERVICES, CORE | [address] [...] [facility] | [address] | [place] [address] | | | [address] | GUILLERMO [...] | + + + + + | [facility] | [address] | [place] [address] | | | SERVICES, CORE | GUILLERMO [...] [facility] | [address] | [place] [address] | | | SERVICES, CORE | PARK [...] + | [place] [facility] - | [address] | [place] [address] | | | [place] | | | | + + + [...] | + + + + + | [facility] | [address] | [place] [address] | | | SERVICES, CORE | GUILLERMO [...] + + | [facility] | [address] | [place] [address] | | | SERVICES, LILLIAN | GUILLERMO [...] [facility] | [address] | [place] [address] | | | SERVICES, CORE | PARK [...] | | | LABORATORY | | | STATELESS | | | SERVICES, | | | [...] | + + + + + | [facility] | [address] | [place] [address] | | | [address] | [address] | | | + + + + + ED INFORMATION EXCHANGE (08/08/2016 12:21 PM PDT) + + + + + + | Component | Value | Ref Range | Performed | Pathologist | | | | | At | Signature | + + + + + + | [facility] | [id number] | | COLLECTIVE | | | | [id number] | | MEDICAL | | | | [...] | Date Location | TECHNOLOGIES | | [facility] [place] [facility] [address] Type Dx / | | | Complaint | | | -------- | | | ------- ---- | | | 08/08/2016 12:21 [facility] | | | and [facility] [place] Emergency [address]. | | | abd pain 08/04/2016 03:50 [...] | | | | | | -Other fpc (current) drug | | | therapy 06/22/2016 [...] | | | | | | -Other fpc (current) drug | | | therapy | [...] Location ------ --------- 1 | | | [facility] [place] [address] [facility] | | | Regional [facility] [address] [...] + | COLLECTIVE MEDICAL | [address], | [place], [place] | [phone] | | TECHNOLOGIES | [address] | [address] | | + + + + + [...] | | | | | 1 dose, [place] 08/08/16 at 1345 | | PM PDT | | | | + +---------+ +-------+---+---+ +---+---+ | | | +---+---+ + +-------+ +------+---+---+ | LORazepam (ATIVAN) tablet 1 mg | Given | 08/08/20 | 1 mg | | | | 1 mg, oral, ONCE, 1 dose, [place] | | 16 3:17 | | | [...]
--- OUTSIDE RECORDS SUMMARY | ~2019-08-12 | XMS | Encounter Summary ---
Demographics + + + | Address | [address] | | | [place] [address] | + + + | Home Phone [...] Team Providers + +------+ + | Care Riveter Portable Machine Name | Role | Phone | [...] | Diagnoses | Beulah | Edu Pt Assistant Community Director | | | | Therapy | CRPS | Janak Martinez MD | [address] | | | | | (complex | [address] | | | | | regional | [address] | Mailcode: | | | | | pain | Mailstop | [facility] Center | | | | | syndrome), | [id number] | for Health | | | | | lower limb | [place], [place] | and Healing, | | | | | Gait | [address] | Building 1 | | | | | disturbance | Phone: | [place], [place] | | | | | Muscle pain | [phone] | [address] | | | | | Procedures | Fax: | Phone: | | | | | PHYSICAL | [phone] | [phone] | | | | | THERAPY | [...] | | | [place] | Ave [place], [place] | syndrome), lower | | | | [address] | [phone] | limb (Primary Dx) | | | | Mailcode: CH3P | | | | | | [facility] | | | | | | and Healing, | | | | | | Building [address] | | | | | | Floor [place], [place] | | | | | | [address] | | | | | | [phone] | | | +--------+---------+ + + + [...] might be different f rom the original. [id number] BRODY FARAH Date of : 1990 Start of care: 02/14/2012 Date of onset: 02/14/2012 Referring/Attending Practitioner: Janak Riojas MD . Primary/Referral Diagnosis/ICD-9: 355.71B CRPS (complex regional pain syndrome), lower limb Insurance: Payor: [facility] Plan: BCBS OUT OF STATE Product Type: PP O Service period from: 02/14/2012 to: 08/12/2012 Number visits used/authorized: 11/25 [facility] PHYSICAL THERAPY INITIAL EVALUATION [...] no pain relief. Admitted to the inpatient [facility] program for 1 month in the [...] from CRPS program at [facility]. Suggest three phase bone sca n. 2. [...] employed by the psychologists here at the [facility]. 2.2 Physical therapy can reduce pain and improve functional status. Suggest Guillermo Sanon. 3. Medication suggestions: 3.1 Continue titrating up duloxetine. 3.2 As for any patient being managed with chronic opioids, we do recommend that the patient have a signed [facility] Material Risk Notice, agree to whatever refill [...] and hemr oidectomy. Social History: lives in [place], 22 years old, not working [...] or concerns about therapy: she lives in [place]. She is r equesting family [...] spent a month in the program at [facility] working through aggressive desensitization and activation which prov ided no lasting benefit. She lives in [place], is going to school, and [...] She can work with her PT in [employer]. CLINICAL PRIORITIES: 1-follow up with Dr Riojas [...] change in their status. Guillermo Sanon MSPT [facility] Outpatient Rehabilitation Services Mailcode: Ch3p [address] [facility], [address] [place] [address] documented in this encounter Plan of [...]
--- OUTSIDE RECORDS SUMMARY | ~2019-08-12 | XMS | Encounter Summary ---
Demographics + + + | Address | [address] | | | [place] [address] | + + + | Home Phone [...] Team Providers + +------+ + | Care Tapper Shank Name | Role | Phone | + [...] | | 2017 | | Center at [facility] [address] | [address] | | | | | [address] | [place] [facility], | | | | | Mailcode: Center | [place] [address] | | | | | for Health and | [phone] | | | | | Healing, Building [address] | | | | | | [place], [place] | | | | | | [address] | | | | | | [phone] | | | +--------+--------+ + + + [...]
--- OUTSIDE RECORDS SUMMARY | ~2019-08-12 | XMS | Encounter Summary ---
Demographics + + + | Address | [address] | | | [place] [address] | + + + | Home Phone [...] + + | 12/05/ | Pharmacy | [facility] | | | | 2019 | Visit | & [facility]acy | | | | | | [address] | | | | | | Mailcode: [place] | | | | | | [facility] and | | | | | | Healing, Building 1 | | | | | | [place], [place] | | | | | | [address] | | | | | | [phone] | | | +--------+ + + + [...]
--- OUTSIDE RECORDS SUMMARY | ~2019-08-12 | XMS | Encounter Summary ---
Demographics + + + | Address | [address] | | | [place] [address] | + + + | Home Phone [...] Team Providers + +------+ + | Care Catalog Librarian Name | Role | Phone | + +------+ + | Justo Vazquez MD | PCP | | + +------+ + Encounter Details +--------+ + + + + | Date | Type | Department | Care Team | Description | +--------+ + + + + | 03/18/ | Telephone | Dig[facility]ive Health | Kenny Gaspar MD | | | 2017 | | [facility] [address] | [address] | | | | | [address] | Giuliana Maldonado [place], | | | | | Mailcode: [place] | [place] [address] | | | | | [facility] and | [phone] | | | | | [facility], [facility] 2 | | | | | | [place], [place] | | | | | | [address] | | | | | | [phone] | | | +--------+ + + + [...]
--- OUTSIDE RECORDS SUMMARY | ~2019-08-12 | XMS | Encounter Summary ---
Demographics + + + | Address | [address] | | | [place] [address] | + + + | Home Phone [...] Team Providers + +------+ + | Care Gold Miner Blasting Name | Role | Phone | + [...] | | 2015 | | Center at [facility] [address] | MD Melissa | | | | | [address] | | | | | | Mailcode: Center | | | | | | for Health and | | | | | | Healing, Building 2 | | | | | | [place], [place] | | | | | | [address] | | | | | | [phone] | | | +--------+ + + + [...]
--- OUTSIDE RECORDS SUMMARY | ~2019-08-12 | XMS | Encounter Summary ---
Demographics + + + | Address | [address] | | | [place] [address] | + + + | Home Phone [...] Team Providers + +------+ + | Care Crew Attendant Name | Role | Phone | [...] | | pain | [address] | [place], [place] | | | | | syndrome | [place], [place] | [address] | | | | | type 1 of | [address] | Phone: | | | | | left lower | Phone: | [phone] | | | | | extremity | [phone] | Fax: | | | | | Midline low | Fax: | [phone] | | | | | back pain | [phone] | | | | | | without [...] Ave | | | | | | [facility] [place] | [place], [place] | | | | | | [address] | [address] | | | | | | Phone: | Phone: | | | | | | [phone] | [phone] | | | | | | Fax: | Fax: | | | | | | [phone] | [phone] | + +---------+ + + + + Encounter Details +--------+---------+ + + + | Date | Type | Department | Care Team | Description | +--------+---------+ + + + | 07/04/ | Office | [facility] Comprehensive | Lane Reyes, | Complex regional | | 2019 | Visit | Pain Center at | [place] [address] | pain syndrome type 1 | | | | [facility] | [place], [place] | of left lower | | | | [address] | [address] | extremity (Primary | | | | Mailcode: CH15P | [phone] | Dx); Midline low | | | | [facility] | | back pain without | | | | and Healing, | | sciatica, | | | | | | unspecified | | | | Floor [place], [place] | | chronicity; | | | | [address] | | Sacroiliac pain; | | | | [phone] | | Sacral dysfunction; | | | [...] and help in coping with the pain. GLASS CUT OFF SUPERVISOR Brief Pain Inventory: (ten= worst possible [...] spinal cord stimulator leads 08/02/2012 [facility], Surgeon: Janak Riojas MD Cholecystectomy [...] History Social History Narrative Single. Goes to [email or web address] with a light load. Has been working at [employer], can' t work on crCloudy.frches. Has roommates. Allergies Allergen Reactions Morphine Anaphylaxis [...] GRAM-5.86 GRAM SOLUTION Take as directed by [facility]- 2 gallon bowel prep POLYETHYLENE GLYCOL 3350 17 GRAM/DOSE ORAL POWDER Take 17 g by mouth once daily. PROMETHAZINE 12.5 MG TABLET Take 1 tablet by mouth four times daily as needed for nausea/vo miting. SUCRALFATE 1 GRAM TABLET Take 1 g by mouth four times daily. Radiology/Diagnostic Tests: X-RAY SPINE CERV 4 VIEWS Order: [id number] Performed: 06/12/2018 11:40 Status: Final result Visible [...] that the treatment performed by the chiropractic international guest coordinator, Niesha Reveles, was directly observed by myself the primary chiropractor Lane Reyes [place] Visit Diagnoses: ICD-10-CM 1. Complex regional pain syndrome type 1 of left lower extremity G90.522 CONSULT TO PAIN REPLACED BY [facility] 2. Midline low back pain without sciatica, unspecified chronicity M54.5 CONSULT TO PAIN DETROIT AGEMENT 3. Sacroiliac pain M53.3 CONSULT TO PAIN MANAGEMENT AL CHIROPRAC MANIP,SPINAL,1-2 REGIONS 4. Sacral dysfunction M53.3 AL CHIROPRAC MANIP,SPINAL,1-2 REGIONS 5. Somatic dysfunction of pelvis region M99.05 AL CHIROPRAC MANIP,SPINAL,1-2 REGIONS 6. Somatic dysfunction of sacral region M99.04 AL CHIROPRAC MANIP,SPINAL,1-2 REGIONS Impression: Tracie Farah is [...] verified the above note written by Chiropractic international guest coordinator of our visit wit h this patient as recorded by Lane Reyes [place] [facility] AT [address] Mail Code: Ch15[place] [address] documented in this e ncounter Plan of Treatment Not on filedocumented as of this encounter Procedures + +--------+ + + + | Procedure Name | Priori | Date/Time | Associated Diagnosis | Comments | | | ty | | | | + +--------+ + + + | AL CHIROPRAC | Routin | 07/10/2019 | Sacroiliac [...]
--- OUTSIDE RECORDS SUMMARY | ~2019-08-12 | XMS | Encounter Summary ---
Demographics + + + | Address | [address] | | | [place] [address] | + + + | Home Phone [...] Providers + +------+ + | Care Hand I Blocker Name | Role | Phone | [...] + + | 09/26/ | Telephone | [facility] Comprehensive | Aleta Rebollar MD [address] | Nausea | | 2018 | | Pain Center at | Johnny Slade | | | | | [facility] | [place], [place] | | | | | [address] | [address] | | | | | Mailcode: CH15P | [phone] | | | | | [facility] | | | | | | [address]ana Mack, | | | | | | Building | | | | | | [place], [place] | | | | | | [address] | | | | | | [phone] | | | +--------+ + + + [...]
--- OUTSIDE RECORDS SUMMARY | ~2019-08-12 | XMS | Encounter Summary ---
Demographics + + + | Address | [address] | | | [place] [address] | + + + | Home Phone [...] Providers + +------+ + | Care Warehouse Driver Name | Role | Phone | [...] Rd | | | | | | [place], [place] | | | | | | [address] | | | +--------+ + + + [...]
--- OUTSIDE RECORDS SUMMARY | ~2019-08-12 | XMS | Encounter Summary ---
Demographics + + + | Address | [address] | | | [place] [address] | + + + | Home Phone [...] Team Providers + +------+ + | Care Cosmetics Machine Operator Name | Role | Phone [...] | CRPS | Janak Martinez MD | [facility] [address] | | | | | (complex | [address] | [address] | | | | | regional | [address] | [address] | | | | | pain | Mailstop | Mailcode: | | | | | syndrome), | [id number] | [address] | | | | | lower limb | [place], [place] | [address] | | | | | Procedures | [address] | [place], [place] | | | | | [place] BONE &/[place] | Phone: | [address] | | | | | JOINT | [phone] | Phone: | | | | | IMAGING 3 | Fax: | [phone] | | | | | PHASE | [phone] | Fax: | | | | | | | [phone] | +--------+--------+ + + + + Reason [...] | CRPS | Janak Martinez MD | [facility] [address] | | | | | (complex | [address] | [address] | | | | | regional | [address] | [address] | | | | | pain | Mailstop | Mailcode: | | | | | syndrome), | [id number] | [address] | | | | | lower limb | [place], [place] | [address] | | | | | Procedures | [address] | [place], [place] | | | | | [place] &/[place] | Phone: | [address] | | | | | JOINT | [phone] | Phone: | | | | | IMAGING 3 | Fax: | [phone] | | | | | PHASE | [phone] | Fax: | | | | | | | [phone] | +--------+--------+ + + + + Encounter Details +--------+ + + + + | Date | Type | Department | Care Team | Description | +--------+ + + + + | 02/13/ | Hospital | Nuclear Medicine | | | | 2011 | Encounter | at [facility] [address] | | | | | | [address] | | | | | | Mailcode: [address] | | | | | | [address] | | | | | | [place], [place] | | | | | | [address] | | | | | | [phone] | | | +--------+ + + + [...]
--- OUTSIDE RECORDS SUMMARY | ~2019-08-12 | XMS | Encounter Summary ---
Demographics + + + | Address | [address] | | | [place] [address] | + + + | Home Phone [...] Providers + +------+ + | Care Audit Consultant Name | Role | Phone | [...] | | | | | syndrome | [facility] | [facility] | | | | | type 1 of | Rd | Rd [place], | | | | | left lower | [place], [place] | [place] | | | | | extremity | [address] | [address] | | | | | Muscle pain | Phone: | Phone: | | | | | Procedures | | | | | | | REQUEST TO | Fax: | Fax: | | | | | SURGERY | | | | | | | ADMINISTRATION PROFESSIONAL | | | +--------+---------+ + + + [...] | syndrome | [address] | [address] | | | | | type 1 of | Rd | Rd [place], | | | | | left lower | [facility] [place] | [place] | | | | | extremity | [address] | [address] | | | | | Muscle pain | Phone: | Phone: | | | | | Procedures | | | | | | | REQUEST TO | Fax: | Fax: | | | | | SURGERY | [phone] | [phone] | | | | | ADMINISTRATION PROFESSIONAL | | | | | | | MO INJ,ANES | | | | | | | AGENT,SCIATI | | | | | | | C | | | | | | | NERVE,SINGLE | | | | | | | MO INJECT | | | | | | | NERV | | | | | | | BLCK,OTHR | | | | | | | PERIPH NERV | | | | | | | MO SONO | | | | | | | GUIDE FOR | | | | | | | NEEDLE | | | | | | | PLACEMENT | | | | | | | MO MOD | | | | | | | SEDATION | | | | | | | >=5YRS SAME | | | | | | | MD/QUAL | | | | | | | PROV; INIT | | | | | | | 15 MIN MO | | | | | | | [...] | | | | | Procedures | [facility] [place] | Joel [address], | | | | | CONSULT TO | [address] | [place] | | | | | PAIN | Phone: | [address] | | | | | MANAGEMENT | [phone] | Phone: | | | | | | Fax: | [phone] | | | | | | [phone] | Fax: | | | | | | | [phone] | +--------+--------+ + + + + Encounter Details +--------+---------+ + + + | Date | Type | Department | Care Team | Description | +--------+---------+ + + + | 12/14/ | Office | [facility] Comprehensive | Alex Sanchez, | Complex regional | | 2018 | Visit | Pain Center at | ,PhD [address] | pain syndrome type 1 | | | | [facility] | [address] | of left lower | | | | [address] | [place], [place] | extremity (Primary | | | | Mailcode: CH15P | [address] | Dx); Muscle pain; | | | | [facility] | [phone] | Pain of upper | | | | and Healing, | | abdomen | | | | | | | | | | Floor [place], [place] | | | | | | [address] | | | | | | [phone] | | | +--------+---------+ + + + [...] make sure this is scheduled with the Integration Software Developer. PRE-PROCEDURE INSTRUCTIONS 1. Please bring a fork truck driver with you as we may give you medications that impair your ability to drive. This is necessary even if you do not receive sedation. You may take a taxi or [employer] if you are accompanied by a responsible [...] or blood thinning medications (other than aspirin), [facility] doctor who is doing your procedure will communicate with the provider who is prescribing y our anticoagulant therapy. If you do not have clear instructions on what to do with your an ticoagulant by 2 weeks before your procedure, please contact [facility] to cl arify your instructions. The phone number for questions or concerns is [phone]. documented in this encounter Progress Notes Charline [...] M D,PhD - 12/14/2017 10:25 AM PST [facility] Return Visit Date: 12/14/2017 Chief Complaint Patient presents with Back pain Low back pain Abdominal pain Pain in right leg Pain in left leg History of Present Illness: Tracie Farah is a 27 year old female, whose last appoi ntment at the [facility] was October 11, 2017, for a [...] review treatment plan. * Follow up with [facility] as needed. Today, [...] does not have new pain complaints on is visit. Ms. Farah reports that there have been no changes in her history since the last appointment. She states that she was treated by Christie Madrid MD in [place], [place] for three years before she abruptly ended her practice due to illness. This left her without a doctor to help her manage her chronic pain. In addition to her CRPS symptoms (diagnosed 2010), she has some sto mach issues that she has been working with Ilene Childs DNP, SYSTEMS TESTER-C. She has a scar on her stomach [...] a lot of great improvements while in [place], [place]. Weaning her off of the narcotic [...] her medical history that she spent in [place], [place] where she part ook in a [...] Spinal cord stimulator trial - Nerve blocks ANTHROPOLOGIST PHYSICAL Brief Pain Inventory: (ten= worst possible pain [...] spinal cord stimulator leads 08/02/2012 [facility], Surgeon: Janak Riojas MD Cholecystectomy [...] History Social History Narrative Single. Goes to [employer] with a light load. Has been working at [employer], can' t work on crBringgches. Has roommates. Allergies Allergen Reactions Morphine Anaphylaxis [...] by physician. Concentration is 150mg/mL. Compounded by [email or web address] ) LAMOTRIGINE 200 MG TABLET Take [...] GRAM-5.86 GRAM SOLUTION Take as directed by [facility]- 2 gallon bowel prep POLYETHYLENE GLYCOL 3350 [...] and summary of old medical records (source: i[employer]), as summarized in the body of the [...] to her by Christie Madrid MD in [place], [place]. As she has since left the [...] with a prescription refill today. I jacqueline vandanajorge spoken with our medical writer, Evelia Gonzalez MD who agrees that as [...] peripheral nerve stimulation. As she lives in [place], [place] with her family (3.5 hours away), [...] by Sonia Key. Alex Sanchez MD PhD Manager Compensation Anesthesiology and Pain Management [facility] Post visit: I reviewed the UDS, and [...] SERVICES, CORE | | Benzodiazepine >=200 ng/mL | | | Cocaine >=300 ng/mL | | | Methadone >=300 ng/mL | | | Opiates >=300 ng/mL | | | Oxycodone >=100 ng/mL THC | | | - Cannabinoid >=50 ng/mL Screening results are | | | not confirmed by alternate method unless requested. Results are to | | | be used for medical (i.e. treatment) purposes only. The reported | | | result is an estimated concentration of drug that can be detected by | | | the method of analysis. Amphetamine Note: Benzphetamine and | | | Selegiline may produce positive results with this assay. Opiates | | | Notes: Therapeutic doses of Ofloxcin (Floxin) or Levofloxacin | | | (Levaquin) may produce positive results with this assay. | | + + + + + + + + | Performing | Address | City/State/Zipcode | Phone Number | | Organization | | | | + + + + + | [facility] | [address] | [place] [address] | | | SERVICES, CORE | GUILLER[place] [...]
--- OUTSIDE RECORDS SUMMARY | ~2019-08-12 | XMS | Encounter Summary ---
Demographics + + + | Address | [address] | | | [place] [address] | + + + | Home Phone [...] Providers + +------+ + | Care Computer Processing Scheduler Name | Role | Phone | [...] 2016 | | Pain Center at | CLEANING ASSOCIATE [address] | | | | | [facility] | [place], [place] | | | | | [address] | [address] | | | | | Mailcode: CH15P | [phone] | | | | | [facility] | | | | | | [address], | | | | | | Building | | | | | | [place], [place] | | | | | | [address] | | | | | | [phone] | | | +--------+ + + + [...]
--- OUTSIDE RECORDS SUMMARY | ~2019-08-12 | XMS | Encounter Summary ---
Demographics + + + | Address | [address] | | | [place] [address] | + + + | Home Phone [...] Team Providers + +------+ + | Care Anesthesiology Technologist Name | Role | Phone | [...] | 2016 | on | Center at [facility] [address] | [address] | | | | | [address] | [place], [place] | | | | | Mailcode: Center | [address] | | | | | for Health and | [phone] | | | | | [facility] [address] | | | | | | [place], [place] | | | | | | [address] | | | | | | [phone] | | | +--------+ + + + [...]
--- OUTSIDE RECORDS SUMMARY | ~2019-08-12 | XMS | Encounter Summary ---
Demographics + + + | Address | [address] | | | [place] [address] | + + + | Home Phone [...] Providers + +------+ + | Care Veterinary Laboratory Diagnostician Name | Role | Phone | + +------+ + | Justo Vazquez MD | PCP | | + +------+ + Encounter Details +--------+ + + + + | Date | Type | Department | Care Team | Description | +--------+ + + + + | 12/07/ | Client Care Consultant | Endoscopic | Ava Carbajal | | | 2016 | | Procedural Unit at | MD Melissa | | | | | [facility] | | | | | | [address] | | | | | | Mailcode: OC2L | | | | | | [facility] | | | | | | and Healing, | | | | | | Building 2 | | | | | | [place], [place] | | | | | | [address] | | | | | | [phone] | | | +--------+ + + + [...]
--- OUTSIDE RECORDS SUMMARY | ~2019-08-12 | XMS | Encounter Summary ---
Demographics + + + | Address | [address] | | | [place] [address] | + + + | Home Phone [...] Team Providers + +------+ + | Care Barrel Washer Name | Role | Phone | [...] | | Pain Center at | ,PhD [address] [facility] | follow-up | | | | [facility] | [address] | | | | | [address] | [place], [place] | | | | | Mailcode: CH15P | [address] | | | | | [facility] | [phone] | | | | | and Martina, | | | | | | Building | | | | | | Floor [place], [place] | | | | | | [address] | | | | | | [phone] | | | +--------+ + + + [...]
--- OUTSIDE RECORDS SUMMARY | ~2019-08-12 | XMS | Encounter Summary ---
Demographics + + + | Address | [address] | | | [place] [address] | + + + | Home Phone [...] | | | | | extremity | [address] | [address] | | | | | Muscle pain | Phone: | Phone: | | | | | Procedures | [phone] | [phone] | | | | | REQUEST TO | Fax: | Fax: | | | | | SURGERY | [phone] | [phone] | | | | | MECHANICAL PROJECT ENGINEER | | | | | | | NE INJ,ANES | | | | | | | AGENT,SCIATI | | | | | | | C | | | | | | | NERVE,SINGLE | | | | | | | NE INJECT | | | | | | | NERV | | | | | | | BLCK,OTHR | | | | | | | PERIPH NERV | | | | | | | NE SONO | | | | | | | GUIDE FOR | | | | | | | NEEDLE | | | | | | | PLACEMENT | | | | | | | NE MOD | | | | | | | SEDATION | | | | | | | >=5YRS SAME | | | | | | | MD/QUAL | | | | | | | PROV; INIT | | | | | | | 15 MIN NE | | | | | | | [...] 12/27/ | Procedure | Pain Center at [facility] | Alex Sanchez, | Pain in left leg; | | 2017 | | Floor [address] | ,PhD [address] | Procedure | | | | [address] Mailcode: | [address] | | | | | CH15P Center for | [place], [place] | | | | | Health and Healing, | [address] | | | | | | [phone] | | | | | Floor [place], [place] | | | | | | [address] | | | | | | [phone] | | | +--------+ + + + [...] mi nayelit be different from the original. [facility] Patient Instructions - Post Interventional Procedure Date: 12/27/2017 Name: Tracie Farah Date of : 1990 Procedure Performed: trigger point injection and popliteal/sciatic block. Procedure Provider: Alex Sanchez MD,PhD If you have any problems you believe are associated with your procedure tonight, Please call the Hospital Card Grader, and ask for the Pain Management Consu ltant. If you have problems or questions between 9:00 am and 4:00 pm, Please call the [facility] Nurse Triage Line, [...] paper. Please fax the pain diary to [phone] or attach a scanned image of it to a [employer] message to your doct or.. The area [...] to the larry ent. David Linares MD [facility] documented in this encounter Progress Notes Alex Sanchez MD,PhD - 12/27/2017 3:00 PM PSTI was present for the entire procedure ( popliteal nerve block and abdominal scar neuroma injection) and all bocanegra elements of this vis it. I reviewed the documentation of the other [facility] providers and concur with Dr. Linares's findings. I edited his note. Alex Sanchez MD,PhD Criminal Defense Attorney Anesthesiology and Pain Management [facility] David Pennington MD - 12/27/2017 3:00 PM PSTPROVIDER OPERATIVE NOTE Date: December 27, 2017 Location: [facility] Procedure Room Tracie Farah [id number] :1990, presents to clinic for: PROCEDURE: Popliteal/sciatic [...] scar neuroma ATTENDING PHYSICIAN: Alex Sanchez MD,PhD COASTAL AND ESTUARY SPECIALIST: Fellow David Linares MD ANESTHESIA: sedation Isadora [...] sedation. Ms. Farah was escorted to the [facility] Procedure R oom, where she [...] procedure. Images were saved, and sent to [employer]. Ms. Farah was transported to the [facility] post-procedure recovery area. She [...] by physician. Concentration is 150mg/mL. Compounded by [facility] ( [phone]) LEVONORGESTREL 20 MCG/24 HR (5 YEARS) INTRAUTERINE [...] directed by [facility] Digestive [facility]- 2 [...] PRE-SEDATION: Date: December 27, 2017 Tracie Farah [id number] 1990 ALLERGIES: Morphine Previous reaction to Sedation/Analgesia: [...] PRE-SEDATION: Date: December 27, 2017 Tracie Farah [id number] 1990 See RN /DOPSTER Pre-Sedation Note. IV ACCESS:Right subc PAC. BASELINE VS: See Sedation Flow Sheet. Tracie Ocampojulita Farah [id number] 1990, presents to clinic for: Procedure: left [...] started. 1530 Midazolam 2mg IV given 1530 Csahkvcn121 mcg IV given 1534 Midazolam 1mg IV given 1546 Midazolam 1mg IV given 1546 Qulqzsup643 mcg IV given 1548 Fentanyl 100 mcg IV given bupivacaine 0.5%, 9mL given, 21mL wasted Kenalog 40mg/mL 1mL, 0 mL wasted 1555 abdominal scar trigger point completed. 1558 Fentanyl 50 mcg IV given 1601 Fentanyl 50 mcg IV given [place] placed for Popliteal Nerve Block.. Placement verified [...] + +--------+ + + + | NE INJECT NERV | Routin | 12/27/2017 | Complex regional | | | BLCK,OT PERIPH | e | 4:32 PM | pain syndrome type 1 | | | NERV | | PST | of left lower | | | | | | extremity | | + +--------+ + + + | NE ROPIVACAINE HCL | Routin | 12/27/2017 | Complex regional | | | INJ 0.5% | e | 4:32 PM | pain syndrome type 1 | | | | | PST | of left lower | | | | | | extremity | | + +--------+ + + + | NE MOD SEDATION | Routin | 12/27/2017 | Complex regional | | | >=5YRS SAME MD/QUAL | e | 4:32 PM | pain syndrome type 1 | | | PROV; INIT 15 MIN | | PST | of left lower | | | | | | extremity | | + +--------+ + + + documented in this encounter Results FIRST CRUSHER MISC PROCEDURE (12/27/2017 3:28 PM PST) + [...]
--- OUTSIDE RECORDS SUMMARY | ~2019-08-12 | XMS | Encounter Summary ---
Demographics + + + | Address | [address] | | | [place] [address] | + + + | Home Phone [...] Providers + +------+ + | Care Gas Leak Inspector Name | Role | Phone | + +------+ + | Justo Vazquez MD | PCP | | + +------+ + Encounter Details +--------+ + + + + | Date | Type | Department | Care Team | Description | +--------+ + + + + | 03/11/ | Telephone | [facility] | Zeeshan Mahoney MD | | | 2019 | | Pain Center at | [address] | | | | | [facility] | [address] [place], | | | | | [address] | [place] [address] | | | | | Mailcode: CH15P | [phone] | | | | | [facility] | | | | | | and Healing, | | | | | | | | | | | | [place], [place] | | | | | | [address] | | | | | | [phone] | | | +--------+ + + + [...]
--- OUTSIDE RECORDS SUMMARY | ~2019-08-12 | XMS | Encounter Summary ---
Demographics + + + | Address | [address] | | | [place] [address] | + + + | Home Phone [...] Team Providers + +------+ + | Care Rolling Mill Plugger Name | Role | Phone | + [...] | | 2015 | | Center at [facility] [address] | MD Melissa | | | | | [address] | | | | | | Mailcode: Center | | | | | | for Health and | | | | | | [facility] Er, [facility] 2 | | | | | | [place], [place] | | | | | | [address] | | | | | | [phone] | | | +--------+ + + + [...]
--- OUTSIDE RECORDS SUMMARY | ~2019-08-12 | XMS | Encounter Summary ---
Demographics + + + | Address | [address] | | | [place] [address] | + + + | Home Phone [...] Team Providers + +------+ + | Care Bow Maker Gift Wrapping Name | Role | Phone | + [...] Rd | | | | | | [place], [place] | | | | | | [address] | | | +--------+ + + + [...]
--- OUTSIDE RECORDS SUMMARY | ~2019-08-12 | XMS | Encounter Summary ---
Demographics + + + | Address | [address] | | | [place] [address] | + + + | Home Phone [...] Team Providers + +------+ + | Care Purchasing/Receiving Name | Role | Phone | + [...] | 2016 | | Center at [facility] [address] | MD Melissa | | | | | [address] | | | | | | Mailcode: Center | | | | | | for Health and | | | | | | Healing, Building 2 | | | | | | [place], [place] | | | | | | [address] | | | | | | [phone] | | | +--------+ + + + [...]
--- OUTSIDE RECORDS SUMMARY | ~2019-08-12 | XMS | Encounter Summary ---
Demographics + + + | Address | [address] | | | [place] [address] | + + + | Home Phone [...] Team Providers + +------+ + | Care Precipitator Name | Role | Phone | + +------+ + | Allegra Gandhi | PCP | | + +------+ + Encounter Details +--------+ + + + + | Date | Type | Department | Care Team | Description | +--------+ + + + + | 02/13/ | Hospital | Nuclear Medicine | | | | 2011 | Encounter | at [facility] [address] | | | | | | [address] | | | | | | Mailcode: [address] | | | | | | [place] | | | | | | [place], [place] | | | | | | [address] | | | | | | [phone] | | | +--------+ + + + [...]
--- OUTSIDE RECORDS SUMMARY | ~2019-08-12 | XMS | Encounter Summary ---
Demographics + + + | Address | [address] | | | [place] [address] | + + + | Home Phone [...] Team Providers + +------+ + | Care Concrete Products Dispatcher Name | Role | Phone | [...] enterography | | 2017 | Encounter | [place] at [facility] [address] | [address] | results | | | | [address] | [place]iana Maldonado [place], | | | | | Mailcode: [place] | [place] [address] | | | | | for Health and | [phone] | | | | | [facility] [address] | | | | | | [place], [place] | | | | | | [address] | | | | | | [phone] | | | +--------+ + + + [...]
--- OUTSIDE RECORDS SUMMARY | ~2019-08-12 | XMS | Encounter Summary ---
Demographics + + + | Address | [address] | | | [place] [address] | + + + | Home Phone [...] Team Providers + +------+ + | Care Container Coordinator Name | Role | Phone | [...] Oliveira | | 2011 | IP | [address] | | House - Approved | | | | Giuliana Maldonado [place], | | | | | | [place] [address] | | | +--------+ + + + [...]
--- OUTSIDE RECORDS SUMMARY | ~2019-08-12 | XMS | Encounter Summary ---
Demographics + + + | Address | [address] | | | [place] [address] | + + + | Home Phone [...] Team Providers + +------+ + | Care Sky Diver Name | Role | Phone | + +------+ + | Justo Vazquez MD | PCP | | + +------+ + Encounter Details +--------+ + + + + | Date | Type | Department | Care Team | Description | +--------+ + + + + | 12/05/ | Procedure | [facility] | | | | 2019 | Pass | [facility] | | | | | | and Healing Surgery | | | | | | Center Admitting | | | | | | Desk Located on the | | | | | | 4th floor [address] | | | | | | [address] [place], | | | | | | [place] [address] | | | +--------+ + + + [...]
--- OUTSIDE RECORDS SUMMARY | ~2019-08-12 | XMS | Encounter Summary ---
Demographics + + + | Address | [address] | | | [place] [address] | + + + | Home Phone [...] Team Providers + +------+ + | Care Central Processing Technician Name | Role | Phone [...] | | Pain Center at | ,PhD [address] | denied) | | | | [facility] | [address] | | | | | [address] | [place], [place] | | | | | Mailcode: CH15P | [address] | | | | | [facility] | [phone] | | | | | and [address], | | | | | | Building | | | | | | Floor [place], [place] | | | | | | [address] | | | | | | [phone] | | | +--------+ + + + [...]
--- OUTSIDE RECORDS SUMMARY | ~2019-08-12 | XMS | Encounter Summary ---
Demographics + + + | Address | [address] | | | [place] [address] | + + + | Home Phone [...] Team Providers + +------+ + | Care Railcar Mechanic Name | Role | Phone | [...] + + | 08/11/ | Documentati | Endoscopic | Lab, Gi Procedure | Medical Records | | 2015 | on | Procedural Unit at | | Review | | | | [facility] | | | | | | [address] | | | | | | Mailcode: OC2L | | | | | | [facility] | | | | | | and [place], | | | | | | Building 2 | | | | | | [place], [place] | | | | | | [address] | | | | | | [phone] | | | +--------+ + + + [...]
--- OUTSIDE RECORDS SUMMARY | ~2019-08-12 | XMS | Encounter Summary ---
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 | | | | Therapy | CRPS | Janak Martinez MD | [address] | | | | | (complex | [address] | | | | | regional | [address] | Mailcode: | | | | | pain | Mailstop | [facility] | | | | | syndrome), | [id number] | for Health | | | | | lower limb | [place], [place] | and Healing, | | | | | Gait | [address] | Building [address] | | | | | disturbance | Phone: | [place], [place] | | | | | Muscle pain | [phone] | [address] | | | | | Procedures | Fax: | Phone: | | | | | PHYSICAL | [phone] | [phone] | | | | | THERAPY | [...] | | | [place] | Ave [place], [place] | syndrome), lower | | | | [address] | [phone] | limb (Primary Dx) | | | | Mailcode: CH3P | | | | | | [facility] | | | | | | and Healing, | | | | | | Building [address] | | | | | | Floor [place], [place] | | | | | | [address] | | | | | | [phone] | | | +--------+---------+ + + + [...] might be different f rom the original. [id number] BRODY FARAH Date of : 1990 Start of care: 02/14/2012 Date of onset: 02/14/2012 Referring/Attending Practitioner: Janak Riojas MD . Primary/Referral Diagnosis/ICD-9: 355.71B CRPS (complex regional pain syndrome), lower limb Insurance: Payor: [facility] Plan: BCBS OUT OF STATE Product Type: PP O Service period from: 02/14/2012 to: 08/12/2012 Number visits used/authorized: 04/25 [facility] PHYSICAL THERAPY PROGRESS NOTE SUBJECTIVE: [...] developed CRPS in 2004 after a fabi emliy surgery. Ever since then she had this [...] change in their status. Guillermo Sanon MSPT [facility] Outpatient Rehabilitation Services Mailcode: Ch3p [address] [facility], [address] [facility] [address] documented in this encounter Plan of Treatment Not on filedocumented as of this encounter Procedures + +--------+ + + + | Procedure Name | Priori | Date/Time | Associated Diagnosis | Comments | | | ty | | | | + +--------+ + + + | [place] THERAPEUTIC | Routin | 06/13/2012 | CRPS [...]
--- OUTSIDE RECORDS SUMMARY | ~2019-08-12 | XMS | Encounter Summary ---
Demographics + + + | Address | [address] | | | [place] [address] | + + + | Home Phone [...] Providers + +------+ + | Care Food Technologist Name | Role | Phone | [...] 2017 | | Pain Center at | FILM SPLICER [address] | | | | | [facility] | Ave [place], [place] | | | | | [address] | [address] | | | | | Mailcode: CH15P | [phone] | | | | | [facility] | | | | | | and Healing, | | | | | | Building | | | | | | Floor [facility] [place] | | | | | | [address] | | | | | | [phone] | | | +--------+ + + + [...]
--- OUTSIDE RECORDS SUMMARY | ~2019-08-12 | XMS | Encounter Summary ---
Demographics + + + | Address | [address] | | | [place] [address] | + + + | Home Phone [...] Team Providers + +------+ + | Care Temple Marker Name | Role | Phone | + +------+ + | Justo Vazquez MD | PCP | | + +------+ + Encounter Details +--------+ + + + + | Date | Type | Department | Care Team | Description | +--------+ + + + + | 09/27/ | Telephone | [facility] | Ilene Bright, | | | 2017 | | Pain Center at | DRIVER/SALES WORKERS [address] | | | | | Formerly Named [facility] | Ave [place], [place] | | | | | [address] | [address] | | | | | Mailcode: CH15P | [phone] | | | | | [facility] | | | | | | and Healing, | | | | | | | | | | | | [place], [place] | | | | | | [address] | | | | | | [phone] | | | +--------+ + + + [...]
--- OUTSIDE RECORDS SUMMARY | ~2019-08-12 | XMS | Encounter Summary ---
Demographics + + + | Address | [address] | | | [place] [address] | + + + | Home Phone [...] Providers + +------+ + | Care Cable Repairer Name | Role | Phone | [...] | | | | Spasticity | [address] | [place], [place] | | | | | Procedures | [place], [place] | [address] | | | | | CONSULT TO | [address] | Phone: | | | | | PAIN | Phone: | [phone] | | | | | MANAGEMENT | [phone] | Fax: | | | | | | Fax: | [phone] | | | | | | [phone] | | +--------+---------+ + + + + [...] | | MD Celia | MD Brendan [address] | | | | | Fibromyalgia | [address] | | | | | Spasticity | [address] | [address] | | | | | Epigastric | [place], [place] | [place], | | | | | pain | [address] | [place] | | | | | Procedures | Phone: | [address] | | | | | REQUEST TO | [phone] | Phone: | | | | | SURGERY | Fax: | [phone] | | | | | TARE WEIGHER | [phone] | Fax: | | | | | [place] INJECT | | [phone] | | | | | TRIGGER | | | | | | | POINT, 1 [place] | | | | | | | 2 [place] INJECT | | | | | | [...] Pain Medicine | Diagnoses | Chasity, | Inside Sales Recruiter Chh1 | | | | / Pain | Abdominal | MD Kenny | [address] | | | | Management | pain, | [address] | Ave | | | | | unspecified | [facility] | Mailcode: | | | | | location | Rd | CH15P Center | | | | | Procedures | [place], [place] | for Health | | | | | CONSULT TO | [address] | and Healing, | | | | | PAIN | Phone: | Building | | | | | MANAGEMENT | [phone] | 1,15th Floor | | | | | | Fax: | [place], [place] | | | | | | [phone] | [address] | | | | | | | Phone: | | | | | | | [phone] | | | | | | | Fax: | | | | | | | [phone] | +--------+--------+ + + + + Encounter Details +--------+---------+ + + + | Date | Type | Department | Care Team | Description | +--------+---------+ + + + | 10/11/ | Office | [facility] Comprehensive | Vern Robertson, | Epigastric pain | | 2017 | Visit | Pain Center at | DROP WIRE ALINER [address] | (Primary Dx); | | | | [facility] | [place], [place] | Spasticity | | | | [address] | [address] | | | | | Mailcode: CH15P | [phone] | | | | | [facility] | | | | | | and [address]ina, | | | | | | Building | | | | | | Floor [place], [place] | | | | | | [address] | | | | | | [phone] | | | +--------+---------+ + + + [...] true warrior! * Please sign up for [employer]. This is the best way to communicate with me. It will save you time in the long run. The procedure you discussed with your doctor is called: Trigger point injection of abdomina l scar. Please make sure this is scheduled with the Management Tra[facility] [employer]. PRE-PROCEDURE INSTRUCTIONS 1. Please bring a milk [...] or blood thinning medications (other than aspirin), [facility] doctor who is doing your procedure will communicate with the provider who is prescribing y our anticoagulant therapy. If you do not have clear instructions on what to do with your an ticoagulant by 2 weeks before your procedure, please contact [facility] to cl arify your instructions. The phone number for questions or concerns is [phone]. * Consider Lidoderm topical or compound prescription [...] muscle hyper tonicity. * Consider increasing your Atwood 3 fats. Atwood-3 fats are precursors to mediators of inflammation [...] oil if approved by your PCP or stave block roller. * Eliminate High Fructose [place] Syrup and Sugar from your diet as [...] review treatment plan. * Follow up with [facility] as needed. It was good to see you today. Thank you for taking the time to see us in the [facility] today. As a reminder, this clinic generally does not prescribe or dispense medi cations. We will send a copy of our notes, including detailed recommendations, to your prim corn care provider (PCP). Any prescriptions will need [...] NP - 1 12/11/2016 1:15 PM PST [facility] Return Visit Date: 10/11/2017 Chief Complaint Patient presents with Abdominal pain Back pain Foot pain History of Present Illness: Tracie Farah is a 27 year old female, whose last appoi ntment at the [facility] was 07/11/17 with TERESA Clark, [...] She reports multiple diagnostic tests conducted at [facility] in [place], [place] including barium swallow and Hydrogen breath [...] Torodol shots: only form of symptom relief. 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 Goes to [employer] college with a light load. Has been working at [employer], can' t work on [employer]. Has roommates. Allergies Allergen Reactions Morphine Anaphylaxis [...] by physician. Concentration is 150mg/mL. Compounded by [facility] ) LAMOTRIGINE 200 MG TABLET Take [...] GRAM-5.86 GRAM SOLUTION Take as directed by [facility] Digestive [facility]- 2 gallon bowel prep POLYETHYLENE [...] reviewed. - Review old medical records (from [facility]). Pertinent findings include: abdominal surger y [...] review treatment plan. * Follow up with [facility] Center as needed. I, Guillermo Michaels, am scribing for Vern Robertson NP on 10/11/2017 I have reviewed and verified the above scribed note of my visit with this patient as record ed by Guillermo Hope. Vern Robertson NP [facility] 15TH FLOOR [address] [facility] [address] Mail Code: [address] [address] documented in this e ncounter Plan of Treatment Not on filedocumented as of this encounter Visit Diagnoses + + | Diagnosis | + + | Epigastric pain - Primary Abdominal pain, epigastric | + + | Spasticity Abnormal involuntary movements | + + documented in this encounter
--- OUTSIDE RECORDS SUMMARY | ~2019-08-12 | XMS | Encounter Summary ---
Demographics + + + | Address | [address] | | | [place] [address] | + + + | Home Phone [...] Team Providers + +------+ + | Care Chuck Wagon Driver Name | Role | Phone | [...] + + | 03// | Telephone | [facility] | Alex Sanchez, | Medication (clarify | | 2018 | | Pain Center at | ,PhD [address] | sig on Ketamine) | | | | [facility] | [facility] | | | | | [address] | [place], [place] | | | | | Mailcode: CH15P | [address] | | | | | [facility] | [phone] | | | | | and Healing, | | | | | | Building | | | | | | Floor [facility] [place] | | | | | | [address] | | | | | | [phone] | | | +--------+ + + + [...]
--- OUTSIDE RECORDS SUMMARY | ~2019-08-12 | XMS | Encounter Summary ---
Demographics + + + | Address | [address] | | | [place] [address] | + + + | Home Phone [...] Providers + +------+ + | Care Sports Fitness And Wellness Director Name | Role | Phone | [...] | | | | | syndrome | [facility] | [facility] | | | | | type [address] of | Rd | Rd [place], | | | | | left lower | [place], [place] | [place] | | | | | extremity | [address] | [address] | | | | | Procedures | Phone: | Phone: | | | | | REQUEST TO | [phone] | [phone] | | | | | SURGERY | Fax: | Fax: | | | | | MACHINE STUFFER AUTOMATIC | [phone] | [phone] | +--------+---------+ + + + + Reason [...] | | | | | Procedures | [place], [place] | [place], | | | | | CONSULT TO | [address] | [place] | | | | | PAIN | Phone: | [address] | | | | | MANAGEMENT | [phone] | Phone: | | | | | | Fax: | [phone] | | | | | | [phone] | Fax: | | | | | | | [phone] | +--------+--------+ + + + + Encounter Details +--------+---------+ + + + | Date | Type | Department | Care Team | Description | +--------+---------+ + + + | 10/09/ | Office | [facility] | Alex Sanchez, | Complex regional | | 2018 | Visit | Pain Center at | ,PhD [address] | pain syndrome type 1 | | | | [facility] | [facility] [address] | of left lower | | | | [address] | [place], [place] | extremity (Primary | | | | Mailcode: CH15 | [address] | Dx) | | | | [facility] | [phone] | | | | | and Healing, | | | | | | | | | | | | Floor [place], [place] | | | | | | [address] | | | | | | [phone] | | | +--------+---------+ + + + [...] the time to see us in the [facility]. It was great to s ee you. Below is a summary of the discussion that we had today: - I have provided you with an external order to see a production control specialist today. Please p resent this referral [...] insurance. PRE-PROCEDURE INSTRUCTIONS 1. Please bring a ups driver with you as we may give [...] or blood thinning medications (other than aspirin), [facility] doctor who is doing your procedure will communicate with the provider who is prescribing y our anticoagulant therapy. If you do not have clear instructions on what to do with your an ticoagulant by 2 weeks before your procedure, please contact [facility] to cl arify your instructions. The phone number for questions or concerns is [phone]. documented in this encounter Progress Notes Alex [...] notes. Alex Sanchez MD,PhD [facility] signed by Alex Sanchez MD,PhD at 09/15 [...] Person MD - 10/09/2018 10:00 AM PST [facility] Return Visit Date: 10/09/2018 Chief [...] Sanchez on 10/02/2018. 2. To contact the [employer] rep if she has any further question [...] She went into the emergency room in [place], [place] where they rem cady the leads. [...] which she suspects also used dissolvable stitches. 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 Goes to [employer] with a light load. Has been working at [employer], can' t work on [employer]. Has roommates. Allergies Allergen Reactions Morphine Anaphylaxis [...] the vein (IV) every eight hour s. 2851-9775-94 COMPOUNDED MED RX CONTROLLED (SEE ADMIN INSTRUCT [...] by physician. Concentration is 150mg/mL. Compounded by [facility] ( [phone]) KETOROLAC IM Inject into the muscle (IM). [...] (IV) every twel ve hours as needed. 0701-6038-14 ONDANSETRON 4 MG DISINTEGRATING TABLET Dissolve 1 tablet in mouth every twelve hours as nee ded. PANTOPRAZOLE 40 MG TABLET,DELAYED RELEASE Take 40 mg by mouth once daily. PEG 3350-ELECTROLYTES 236 GRAM-22.74 GRAM-6.74 GRAM-5.86 GRAM SOLUTION Take as directed by [facility]- 2 gallon bowel [...] and summary of old medical records (source: [facility]), as summarized in the body of the [...] Key. Arben Valerio MD [facility] [address] FLO[address] [facility] Mail Code: [address] [place] [address] [phone] signed by Alex Sanchez MD,PhD at 10/10/2018 9:27 AM [facility] umented in this encounter Plan of Treatment Not on filedocumented as of this encounter Visit Diagnoses + + | Diagnosis | + + | Complex regional pain syndrome type 1 of left lower extremity - Primary | + + documented in this encounter
--- OUTSIDE RECORDS SUMMARY | ~2019-08-12 | XMS | Encounter Summary ---
Demographics + + + | Address | [address] | | | [place] [address] | + + + | Home Phone [...] Team Providers + +------+ + | Care Recruiting Assistant Name | Role | Phone | [...] | | | regional | [place] | [address] | | | | | pain | FAMILY | Mailstop | | | | | syndrome), | MEDICINE P | [id number] | | | | | lower limb | [address] | [place], [place] | | | | | Gait | [place], | [address] | | | | | disturbance | [place] [address] | Phone: | | | | | Muscle pain | Phone: | [phone] | | | | | Procedures | [phone] | Fax: | | | | | REQUEST TO | Fax: | [phone] | | | | | SURGERY | [phone] | | | | | | SEPTIC PUMP TRUCK DRIVER | | | +--------+--------+ + + + + Encounter Details +--------+ + + + + | Date | Type | Department | Care Team | Description | +--------+ + + + + | 03/01/ | Procedure | Pain Center at [facility] | Dale Cantu, | Foot pain (left); | | 2011 | | 15th Floor [address] | MD [address] | Procedure | | | | [address] Mailcode: | St Mailstop 260384 | | | | | CH15P [facility] | DORR, MD | | | | | Health and Healing, | [address] | | | | | [facility] | [phone] | | | | | Floor [place], [place] | | | | | | [address] | | | | | | [phone] | | | +--------+ + + + [...] migh t be different from the original. [facility] Patient Instructions - Post Interventional Procedure Date: 03/01/2012 Name: Tracie Farah Date of : 1990 Procedure Performed: LUMBAR SYMPATHETIC BLOCK. Procedure Provider: Dale Cantu If you have any problems you believe are associated with your procedure tonight, Please call the Hospital Venture Capital Analyst, and ask for the Pain Management Consu ltant. If you have problems or questions between 9:00 am and 4:00 pm, Please call the [facility] Nurse Triage Line, . If you [...] to the larry ent. LAKEISHA HERRING MD [facility] Pain Center documented in this encounter Progress Notes Dale Cantu MD - 03/01/2012 2:21 PM PDTI was present for the entire procedure (lumbar sympathetic block) and all bocanegra elements of this visit. I reviewed the documentation of the other ROUGE SIFTER providers and concur with Dr. Herring's findings. [...] benefit from multidisciplinary treatment. DALE CANTU MD Smash Piecer, [facility] Pain Center Airplane Cleaner, Pain Medicine Professor, Anesthesiology & Perioperative Medicine NAEiDiana scott RN - 03/01/2012 1:35 PM PDT PRE-SEDATION: Date: March 01, 2012 Tracie Farah [id number] 1990 ALLERGIES: Morphine Previous reaction to Sedation/Analgesia: MEDICATIONS: Current Outpatient Prescriptions Medication DULoxetine (CYMBALTA) 30 mg Oral Capsule, Delayed Release(E.C.) HYDROcodone-acetaminophen (NORCO) 10-325 mg Oral Tablet levonorgestrel (MIRENA) 20 mcg/24 hr Intrauterine IUD LORazepam 1 mg Oral Tablet promethazine 25 mg Oral Tablet Meets NPO Guidelines. IV ACCESS: IV in Place IV Start Time 43892, 22g, DRH BASELINE VS: See Sedation Flow Sheet. Tracie Farah [id number] 1990, presents to clinic for: Procedure: Lumbar [...] ml. 1344: Procedure complete. Pt [facility] to d lo [facility] condiotion. IV dc'd. Cece [...] OPERATIVE NOTE Date: March 01, 2012 [facility] Procedure Room Tracie Donaldson [facility] [id number] :1990, presents to clinic for: PROCEDURE: Lumbar sympathetic block LEVEL/LATERALITY: left L3 PRE-OPERATIVE DIAGNOSIS: 355.71B CRPS (complex regional pain syndrome), lower limb 719.46 Pain in joint, lower leg POST-OPERATIVE DIAGNOSIS: 355.71B CRPS (complex regional pain syndrome), lower limb 719.46 Pain in joint, lower leg ATTENDING PHYSICIAN: Dale Cantu HOT TAR ROOFER: Fellow Lakeisha Herring MD ANESTHESIA: sedation delivered [...] sedation. Ms. Farah was escorted to the [facility] Procedure Ro om, where she was positioned [...] compromise. Ms. Farah was transported to the [facility] Comprehensive Pain Center post-procedure recovery [...] block. Images were saved, and sent to [employer]. Ms. Farah will have her next appointment [...] | + +--------+ + + + | [place] INJECT NERV | Routin | 03/01/2012 | CRPS (complex | | | BLCK,PARAVERT | e | 2:20 PM | regional pain | | | SYMPATH | | PDT | syndrome), lower | | | | | | limb Pain in joint, | | | | | | lower leg | | + +--------+ + + + | [place] LOCM 100-199 | Routin | 03/01/2012 | CRPS (complex | | | MG/MLICON | e | 1:53 PM | regional pain | | | | | PDT | syndrome), lower | | | | | | limb Pain in joint, | | | | | | lower leg | | + +--------+ + + + | [place] INJ BUPIVACAINE | Routin | 03/01/2012 | [...]
--- OUTSIDE RECORDS SUMMARY | ~2019-08-12 | XMS | Encounter Summary ---
Demographics + + + | Address | [address] | | | [place] [address] | + + + | Home Phone [...] Team Providers + +------+ + | Care Emblem Maker Name | Role | Phone | [...] Rd | | | | | | [place], [place] | | | | | | [address] | | | +--------+ + + + [...]
--- OUTSIDE RECORDS SUMMARY | ~2019-08-12 | XMS | Encounter Summary ---
Demographics + + + | Address | [address] | | | [place] [address] | + + + | Home Phone [...] Team Providers + +------+ + | Care Microsoft Office Instructor Name | Role | Phone | [...] (plan of care) | | | | [facility] | [facility] | | | | | [address] | [place], [place] | | | | | Mailcode: CH15P | [address] | | | | | [facility] | [phone] | | | | | and Healing, | | | | | | Building | | | | | | [place], [place] | | | | | | [address] | | | | | | [phone] | | | +--------+ + + + [...]
--- OUTSIDE RECORDS SUMMARY | ~2019-08-12 | XMS | Encounter Summary ---
Demographics + + + | Address | [address] | | | [place] [address] | + + + | Home Phone [...] Providers + +------+ + | Care Computer Systems Security Administrator Name | Role | Phone | + +------+ + | Allegra Chaudhary | PCP | Unavailable | + +------+ + Encounter Details +--------+ + + + + | Date | Type | Department | Care Team | Description | +--------+ + + + + | 08/06/ | Hospital | Registration HOV | | | | 2015 | Encounter | [address] | | | | | | Giuliana Maldonado [place], | | | | | | [place] [address] | | | +--------+ + + + [...]
--- OUTSIDE RECORDS SUMMARY | ~2019-08-12 | XMS | Encounter Summary ---
Demographics + + + | Address | [address] | | | [place] [address] | + + + | Home Phone [...] Team Providers + +------+ + | Care Visual Educator Name | Role | Phone | [...] | Dale Martinez MD | [facility] [address] | | | | | (complex | [address] | [address] | | | | | regional | [address] | [address] | | | | | pain | Mailstop | Mailcode: | | | | | syndrome), | [id number] | [address] | | | | | lower limb | [place], [place] | [address] | | | | | Procedures | [address] | [place], [place] | | | | | [place] BONE &/[place] | Phone: | [address] | | | | | JOINT | [phone] | Phone: | | | | | IMAGING 3 | Fax: | [phone] | | | | | PHASE | [phone] | Fax: | | | | | | | [phone] | +--------+--------+ + + + + Consult [...] | | | regional | [place] | [address] | | | | | pain | FAMILY | Mailstop | | | | | syndrome), | MEDICINE P | [address]19 | | | | | lower limb | [address] | [place], [place] | | | | | Gait | [place], | [address] | | | | | disturbance | [place] [address] | Phone: | | | | | Muscle pain | Phone: | [phone] | | | | | Procedures | [phone] | Fax: | | | | | REQUEST TO | Fax: | [phone] | | | | | SURGERY | [phone] | | | | | | FIELD NATURALIST | | | +--------+--------+ + + + + Consultation (Routine) +--------+--------+ + + + + | Status | Reason | Specialty | Diagnoses / | Referred By | Referred To | | | | | Procedures | Contact | Contact | +--------+--------+ + + + + | Closed | | Psychology / | Diagnoses | Beulah, | Shrimper Psych | | | | Pain | CRPS | Dale Martinez MD | [address] | | | | Management | (complex | [address] | | | | | regional | [address] | Mailcode: | | | | | pain | Mailstop | CH15P Center | | | | | syndrome), | [id number] | for Health | | | | | lower limb | [place], [place] | and Healing, | | | | | Gait | [address] | Building 1, | | | | | disturbance | Phone: | 15th Floor | | | | | Muscle pain | [phone] | [place], [place] | | | | | Procedures | Fax: | [address] | | | | | CONSULT TO | [phone] | Phone: | | | | | PAIN CENTER | | [phone] | | | | | | | Fax: | | | | | | | [phone] | +--------+--------+ + + + + Physical Therapy (Routine) +--------+--------+ + + + + | Status | Reason | Specialty | Diagnoses / | Referred By | Referred To | | | | | Procedures | Contact | Contact | +--------+--------+ + + + + | Closed | | Physical | Diagnoses | Beulah, | Edu Pt Shrimper | | | | Therapy | CRPS | Dale Martinez MD | [address] | | | | | (complex | [address] | | | | | regional | [address] | Mailcode: | | | | | pain | Mailstop | CH3P Center | | | | | syndrome), | [id number] | for Health | | | | | lower limb | [place], [place] | and Healing, | | | | | Gait | [address] | Building 1 | | | | | disturbance | Phone: | [place], [place] | | | | | Muscle pain | [phone] | [address] | | | | | Procedures | Fax: | Phone: | | | | | PHYSICAL | [phone] | [phone] | | | | | THERAPY | [...] | | | sympathetic | [place] | [address]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 | FAMILY | Mailstop | | | | | of lower | MEDICINE P | [address] | | | | | limb | [address] | [place], [place] | | | | | | [place], | [address] | | | | | | [place] [address] | Phone: | | | | | | Phone: | [phone] | | | | | | [phone] | Fax: | | | | | | Fax: | [phone] | | | | | | [phone] | | +--------+--------+ + + + + Encounter Details +--------+---------+ + + + | Date | Type | Department | Care Team | Description | +--------+---------+ + + + | 02/13/ | Office | [facility] | Dale Cantu, | CRPS (complex | | 2011 | Visit | Pain Center at | [address] | regional pain | | | | [facility] | [address] [address] | syndrome), lower | | | | [address] | [place], [place] | limb; Gait | | | | Mailcode: [facility] | [address] | disturbance; Muscle | | | | [place] for [facility] | [phone] | pain; Adjustment | | | | and Healing, | | reaction | | | | Building | | | | | | Floor [place], [place] | | | | | | [address] | | | | | | [phone] | | | +--------+---------+ + + + [...] Diagnostic evaluation: Records from CRPS program at [facility]. 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 [...] employed by the psychologists here at the [facility]. 2.2 Physical therapy can reduce pain and improve functional status. Suggest Guillermo Sanon . 3. Medication suggestions: 3.1 Continue titrating up duloxetine. 3.2 As for any patient being managed with chronic opioids, we do recommend that the patien t have a signed [place] Material Risk Notice, agree to whatever refill [...] procedure to assess the effects in detail. [facility] Pre-Procedure Instructions: The procedure you discussed with your doctor is called: LUMBAR SYMPATHETIC BLOCK. Please m sintia sure this is scheduled with the Desk Sergeant. Please bring a shuttle truck driver with you. We may give you medications that make you drowsy or otherw ise unsafe to drive. If you do not have a shuttle truck driver, we will not be able [...] PLEASE CONTACT THE COMPREHENSIVE PAIN CENTER AT [phone] ([phone]) FOR QUESTIONS OR IF YOU NEED TO CANCEL YOUR APPOINTMENT. [facility] Comprehensive Pain Center documented in this [...] pain management consultation by BJORN Mi [place] [facility] [address] [place] [address] Reason for visit Chief Complaint Patient presents [...] pain problem with the following spec renown urgent care issues to be addressed: Other options for [...] by several orthopedic surgeons, Dr. Charles in [place], physical therapy, Occupational Therapy. Diagnostic and radiologic [...] no pain relief. Admitted to the inpatient [facility] program for 1 month in the [...] entin, pregabalin, topiramate, tramadol, multiple opioids. Current Challenge about 6-8/day. St arting duloxetine, at 30 mg/day. She feels that the most effective medication treatments ar e or have been opioids. As a result of her pain, Ms. Farah notes multiple changes in her life, including: "I don 't have a life, can't work, can't go to school." Poor mood, sleep, activity. Using crutche s recently because of pain flare. 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 Goes to [employer] with a light load. Has been working at [employer], can' t work on [employer]. Has roommates. Current Medication List 02/14/12 9:50 [...] Anaphylaxis As part of today's visit the [facility] new patient questionnaire [...] ricks, the pediatric inpatient pain program at [facility], and two attempted lumbar sympathetic blocks. Last [...] CRPS patients (Loretta Rousseau, et al. Katrina Paint Specialist Med. 2010;152: 152-158). Other treatment options for the future: Spinal cord stimulation (SCS) has good evidence f or providing mcc relief in CRPS (Complex Regional Pain Syndrome) [...] Diagnostic [facility]: [facility] Suggest three ph ase bone scan-- [...] employed by the psychologists here at the [facility]. ORDER PLACED 2.2 Physical therapy can reduce pain and improve functional status. Suggest Guillermo Sanon . ORDER PLACED 3. Medication suggestions: 3.1 Continue titrating up duloxetine. 3.2 As for any patient being managed with chronic opioids, we do recommend that the patien t have a signed [facility] Material Risk Notice, agree to whatever [...] her PCP, BJORN Villanueva. DALE CANTU MD Algorithm Developer, Comprehensive [facility] Center Replenisher, Pain Medicine Professor, Anesthesiology & Perioperative Medicine [...]
--- OUTSIDE RECORDS SUMMARY | ~2019-08-12 | XMS | Encounter Summary ---
Demographics + + + | Address | [address] | | | [place] [address] | + + + | Home Phone [...] + +------+ + | Care Brick Chimney Builder Name | Role | Phone | + +------+ + | Allegra Chaudhary | PCP | Unavailable | + +------+ + Reason for Referral [...] ogy | | Ava Torres, | [address] | | | | | Constipation | MD [address] | [address] | | | | | , | [address] | Mailcode: | | | | | unspecified | Giuliana Maldonado | OC2L Center | | | | | constipation | [facility] [place] | for Health | | | | | type | [address] | and Healing, | | | | | Procedures | | Building 2 | | | | | CONSULT TO | | [place], [place] | | | | | GI PROCEDURE | | [address] | | | | | UNIT: | | Phone: | | | | | ANORECTAL | | [phone] | | | | | MANOMETRY | | Fax: | | | | | MD ANAL | | [phone] | | | | | PRESSURE | [...] | | | | ogy | | [place], | [address] | | | | | Gastroparesi | Allegra Nieto, | [address] | | | | | s | [place] [address] | Mailcode: | | | | | | [address] | Center for | | | | | | [place], | Health and | | | | | | [place] [address] | Healing, | | | | | | Phone: | Building 2 | | | | | | [phone] | [place], [place] | | | | | | Fax: | [address] | | | | | | [phone] | Phone: | | | | | | | [phone] | | | | | | | Fax: | | | | | | | [phone] | +--------+--------+ + + + + Encounter Details +--------+---------+ + + + | Date | Type | Department | Care Team | Description | +--------+---------+ + + + | 08/10/ | Office | Digestive Health | Ava Carbajal | Constipation, | | 2015 | Visit | Center at [facility] [address] | MD Melissa | unspecified | | | | [address] | | constipation type | | | | Mailcode: Center | | (Primary Dx) | | | | for Health and | | | | | | Healing, Building [address] | | | | | | [place], [place] | | | | | | [address] | | | | | | [phone] | | | +--------+---------+ + + + [...] in their attached note. Celia Lin MD Apparel Designerfast food delivery driver Division of Gastroenterology & Hepatology [facility] va Carbajal MD - 08/09/2016 8:40 PM PDT Gastroenterology Initial Clinic Note 08/09/2016 CHIEF COMPLAINT/IDENTIFICATION: "Gastroparesis"-Nausea emesis and abdominal pain -SECOND O GERMAINE Dr. Flores-[facility] GI Dr[facility] PCP: HANDY Villalpando HISTORY OF PRESENT [...] Dr. Flores in [facility]. Patient has hx of GERD which was [...] had CT abdomen w contrast done at [facility] on 10/23/15 showing large stool burden [...] GI MDS[facility]: -increased CRP 06/19/16: Lipase-normal (8) [...] form versus functional syndrome. 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
--- OUTSIDE RECORDS SUMMARY | ~2019-08-12 | XMS | Encounter Summary ---
Demographics + + + | Address | [address] | | | [place] [address] | + + + | Home Phone [...] Providers + +------+ + | Care Truck Crane Operator Name | Role | Phone [...] + + | 12/05/ | Hospital | [facility] | Alex Sanchez, | | | 2019 | Encounter | ST[address] | ,PhD [address] | | | | | Courtney Mailcode: [facility] | [address] | | | | | [facility] | [place], [place] | | | | | Health and [facility], | [address] | | | | | [place] [address] | [phone] | | | | | [place], [place] | | | | | | [address] | | | | | | [phone] | | | +--------+ + + + [...] as of this encounter Progress Notes Aleta Rebolalr MD - 12/05/2018 7:13 AM PSTUpdate H&P [...] s/p successful DRG trial lead system with Advasense System on 09/25/2018. No changes in H&P, [...] OPERATIVE NOTE Date: December 05, 2018 Location: [facility] [place] | | | Tracie Farah [id number] :1990, presents to clinic | | | for: Dorsal root ganglion stimulator implant PROCEDURE: Dorsal | | | root ganglion stimulator implant PRE-OPERATIVE DIAGNOSIS: Complex | | | regional Pain syndrome type 1 of left lower extremity | | | POST-OPERATIVE DIAGNOSIS: Complex regional Pain syndrome type 1 of | | | left lower extremity ATTENDING PHYSICIAN: Alex Sanchez | | | GRAVITY PROSPECTING OPERATOR HELPER: Arben Valerio MD ANESTHESIA: sedation by IVIS Cole | | | Carmen, supervised by aquatic facility manager Ilir Valdes. | | | FINDINGS: Appropriate [...] was | | | escorted to the [facility] [place], where she was positioned Prone on [...] to the | | | St Judes welding equipment sales representative. A test stimulation was performed [...] recovery. Images were saved, and sent to IPX. | | | Alex Sanchez (attending) was present for the entire procedure. | | | Arben Valerio MD I was present for the entire procedure | | | (spinal cord stimulator implantation with DRG leads at left L4 and | | | L5) and all bocanegra elements of this visit. I reviewed the | | | documentation of the other [employer]OP [employer]ENDER [employer]ANK providers and concur with | | | Iman's findings. I edited his note. Alex Sanchez, | | | ,PhD Senior Software Quality Engineer Anesthesiology and Pain Management | | | [facility] | | + + + HCG URINE, [...] KEVIN - JOSE ANTONIO PULIDO | [address] | [place] [address] | | | OF CARE TESTS | [...]
--- OUTSIDE RECORDS SUMMARY | ~2019-08-12 | XMS | Encounter Summary ---
Demographics + + + | Address | [address] | | | [place] [address] | + + + | [...] Team Providers + +------+ + | Care Reheater Name | Role | Phone | + [...] ogy | | Ava Torres, | [address] | | | | | Constipation | MD [address] | [address] | | | | | , | [address] | Mailcode: | | | | | unspecified | Giuliana Maldonado | [facility] Center | | | | | constipation | [facility] [place] | for Health | | | | | type | [address] | and Healing, | | | | | Procedures | | Building 2 | | | | | CONSULT TO | | [place], [place] | | | | | GI PROCEDURE | | [address] | | | | | UNIT: | | Phone: | | | | | ANORECTAL | | [phone] | | | | | MANOMETRY | | Fax: | | | | | [place] ANAL | | [phone] | | | | | PRESSURE | [...] | Encounter | Procedural Unit at | [facility] | | | | | [facility] | Road [place], [place] | | | | | [address] | [address] | | | | | Mailcode: OC2L | | | | | | [facility] | | | | | | and Healing, | | | | | | Building 2 | | | | | | [place], [place] | | | | | | [address] | | | | | | [phone] | | | +--------+ + + + [...]
--- OUTSIDE RECORDS SUMMARY | ~2019-08-12 | XMS | Encounter Summary ---
Demographics + + + | Address | [address] | | | [place] [address] | + + + | Home Phone [...] Providers + +------+ + | Care Rn Occupational Name | Role | Phone | + [...] | | | | | constipation | [place], [place] | for Health | | | | | type | [address] | and Healing, | | | | | Abdominal | | Building 2 | | | | | pain, | | [place], [place] | | | | | unspecified | | [address] | | | | | location | | Phone: | | | | | Procedures | | [phone] | | | | | CONSULT TO | | Fax: | | | | | GI PROCEDURE | | [phone] | | | | | UNIT: | [...] | | 2015 | | Center at [address] | MD Melissa | Vomiting (Bile) | | | | [address] | | | | | | Mailcode: [place] | | | | | | for Health and | | | | | | Healing, Building 2 | | | | | | [place], [place] | | | | | | [address] | | | | | | [phone] | | | +--------+ + + + [...]
--- OUTSIDE RECORDS SUMMARY | ~2019-08-12 | XMS | Encounter Summary ---
Demographics + + + | Address | [address] | | | [place] [address] | + + + | Home Phone [...] Providers + +------+ + | Care Quality Assurance Representative Name | Role | Phone | + +------+ + | Allegra Chaudhary | PCP | Unavailable | + +------+ + Encounter Details +--------+ + + + + | Date | Type | Department | Care Team | Description | +--------+ + + + + | 10/21/ | Telephone | Digestive Health | Antony Beltre, | | | 2014 | | [place] at [facility] [address] | [address] | | | | | [address] | [place] [address] | | | | | Mailcode: Center | [phone] | | | | | for Health and | | | | | | [address] | | | | | | [place], [place] | | | | | | [address] | | | | | | [phone] | | | +--------+ + + + [...]
--- OUTSIDE RECORDS SUMMARY | ~2019-08-12 | XMS | Encounter Summary ---
Demographics + + + | Address | [address] | | | [place] [address] | + + + | Home Phone [...] Team Providers + +------+ + | Care Rollway Man Name | Role | Phone | + +------+ + | Justo Vazquez MD | PCP | | + +------+ + Encounter Details +--------+ + + + + | Date | Type | Department | Care Team | Description | +--------+ + + + + | 10/09/ | Telephone | [facility] | Alex Sanchez, | | | 2018 | | Pain Center at | ,PhD [address] | | | | | [facility] | [address] | | | | | [address] | [place], [place] | | | | | Mailcode: CH15P | [address] | | | | | [place] for [facility] | [phone] | | | | | and Healing, | | | | | | | | | | | | Floor [place], [place] | | | | | | [address] | | | | | | [phone] | | | +--------+ + + + [...]
--- OUTSIDE RECORDS SUMMARY | ~2019-08-12 | XMS | Encounter Summary ---
Demographics + + + | Address | [address] | | | [place] [address] | + + + | Home Phone [...] + +------+ + | Care Envelope Sealer Name | Role | Phone | + [...] | pain, | [address] | [address] | | | | | unspecified | [address] | [address] | | | | | abdominal | Rd | [facility] [place] | | | | | location | [place], [place] | [address] | | | | | Pain of | [address] | Phone: | | | | | upper | Phone: | [phone] | | | | | abdomen | [phone] | Fax: | | | | | Complex | Fax: | [phone] | | | | | regional | [phone] | | | | | | pain [...] | | | | | | | VACCINE MANAGER | | | +--------+---------+ + + + + Reason for Visit + + + | Reason | Comments | + + + | Procedure | | + + + Encounter Details +--------+ + + + + | Date | Type | Department | Care Team | Description | +--------+ + + + + | 10/17/ | Telephone | [facility] | Deangelo, Ilene, | Procedure | | 2017 | | Pain Center at | LEAD RUBY ON RAILS DEVELOPER [address] | | | | | [facility] | Ave [facility] [place] | | | | | [address] | [address] | | | | | Mailcode: CH15P | [phone] | | | | | [facility] | | | | | | and Healing, | | | | | | Building | | | | | | Floor [place], [place] | | | | | | [address] | | | | | | [phone] | | | +--------+ + + + [...]
--- OUTSIDE RECORDS SUMMARY | ~2019-08-12 | XMS | Encounter Summary ---
Demographics + + + | Address | [address] | | | [place] [address] | + + + | Home Phone [...] Providers + +------+ + | Care Instrument Designer Name | Role | Phone | [...] | | | [address] | [address] | | | | | [place], [place] | [place], [place] | | | | | [address] | [address] | | | | | | [phone] | | | | | | | [...] | + +--------+ + + + | INSULATOR HELPER MISC PROCEDURE | Routin | 12/27/2017 | [...]
--- OUTSIDE RECORDS SUMMARY | ~2019-08-12 | XMS | Encounter Summary ---
Demographics + + + | Address | [address] | | | [place] [address] | + + + | Home Phone [...] Providers + +------+ + | Care Attorney At Law Name | Role | Phone | + +------+ + | Justo Vazquez MD | PCP | | + +------+ + Encounter Details +--------+ + + + + | Date | Type | Department | Care Team | Description | +--------+ + + + + | 01/06/ | Document-Ne | [facility] | Alex Sanchez, | | | 2018 | anned | Pain Center at | ,PhD [address] | | | | | [facility] | [address] | | | | | [address] | [place], [place] | | | | | Mailcode: CH15P | [address] | | | | | [facility] | [phone] | | | | | and Healing, | | | | | | | | | | | | Floor [place], [place] | | | | | | [address] | | | | | | [phone] | | | +--------+ + + + [...]
--- OUTSIDE RECORDS SUMMARY | ~2019-08-12 | XMS | Encounter Summary ---
Demographics + + + | Address | [address] | | | [place] [address] | + + + | Home Phone [...] Team Providers + +------+ + | Care Farm Machinery Mechanic Name | Role | Phone | + +------+ + | Justo Vazquez MD | PCP | | + +------+ + Encounter Details +--------+ + + + + | Date | Type | Department | Care Team | Description | +--------+ + + + + | 10/19/ | Telephone | [facility] | Ilene Bright, | | | 2017 | | Pain Center at | FISHING LINE WINDING MACHINE OPERATOR [address] | | | | | [facility] | Ave [place], [place] | | | | | [address] | [address] | | | | | Mailcode: CH15P | [phone] | | | | | [facility] | | | | | | and Healing, | | | | | | | | | | | | [place], [place] | | | | | | [address] | | | | | | [phone] | | | +--------+ + + + [...]
--- OUTSIDE RECORDS SUMMARY | ~2019-08-12 | XMS | Encounter Summary ---
Demographics + + + | Address | [address] | | | [place] [address] | + + + | Home Phone [...] Providers + +------+ + | Care Shoe Repair Supervisor Name | Role | Phone | [...] Medical Records | | 2017 | | [place] [address] [address] | [address] | Review | | | | [address] | [address] [place], | | | | | Mailcode: [place] | [place] [address] | | | | | for Health and | [phone] | | | | | [facility] 2 | | | | | | [place], [place] | | | | | | [address] | | | | | | [phone] | | | +--------+ + + + [...]
--- OUTSIDE RECORDS SUMMARY | ~2019-08-12 | XMS | Encounter Summary ---
Demographics + + + | Address | [address] | | | [place] [address] | + + + | Home Phone [...] Team Providers + +------+ + | Care Washer Repairman Name | Role | Phone | + +------+ + | Justo Vazquez MD | PCP | | + +------+ + Encounter Details +--------+ + + + + | Date | Type | Department | Care Team | Description | +--------+ + + + + | 03/23/ | MyChart | [facility] | Ilene Bright, | Welcome | | 2017 | Encounter | Pain Center at | DRUG SAFETY ASSISTANT [address] | | | | | [facility] | Ave [place], [place] | | | | | [address] | [address] | | | | | Mailcode: CH15P | [phone] | | | | | [facility] | | | | | | and Healing, | | | | | | | | | | | | [place], [place] | | | | | | [address] | | | | | | [phone] | | | +--------+ + + + [...]
--- OUTSIDE RECORDS SUMMARY | ~2019-08-12 | XMS | Encounter Summary ---
Demographics + + + | Address | [address] | | | [place] [address] | + + + | Home Phone [...] Team Providers + +------+ + | Care Instant Potato Processing Supervisor Name | Role | Phone | [...] Pain Medicine | Diagnoses | Chasity, | Obedience Trainer Chh1 | | | | / Pain | Abdominal | MD Kenny | [address] | | | | Management | pain, | [address] | Ave | | | | | unspecified | [address] | Mailcode: | | | | | location | Rd | [facility] Center | | | | | Procedures | [place], [place] | for Health | | | | | CONSULT TO | [address] | and Healing, | | | | | PAIN | Phone: | Building | | | | | MANAGEMENT | [phone] | 1,15th Floor | | | | | | Fax: | [place], [place] | | | | | | [phone] | [address] | | | | | | | Phone: | | | | | | | [phone] | | | | | | | Fax: | | | | | | | [phone] | +--------+--------+ + + + + Reason [...] | | 2017 | | Center at [facility] [address] | [address] | pain | | | | [address] | [address] [place], | | | | | Mailcode: [place] | [place] [address] | | | | | for Health and | [phone] | | | | | [place] [address] | | | | | | [place], [place] | | | | | | [address] | | | | | | [phone] | | | +--------+ + + + [...]
--- OUTSIDE RECORDS SUMMARY | ~2019-08-12 | XMS | Encounter Summary ---
Demographics + + + | Address | [address] | | | [place] [address] | + + + | Home Phone [...] Providers + +------+ + | Care Crusher Supervisor Name | Role | Phone | [...] | | | | | constipation | [place], [place] | for Health | | | | | type | [address] | and Healing, | | | | | Abdominal | | Building 2 | | | | | pain, | | [place], [place] | | | | | unspecified | | [address] | | | | | location | | Phone: | | | | | Procedures | | [phone] | | | | | CONSULT TO | | Fax: | | | | | GI PROCEDURE | | [phone] | | | | | UNIT: | | | | | | | COLONOSCOPY | | | | | | | [place] | | | | | | | [...] | | | | | | Mailcode: [place] | | | | | | for Health and | | | | | | Healing, Building 2 | | | | | | [place], [place] | | | | | | [address] | | | | | | [phone] | | | +--------+ + + + [...]
--- OUTSIDE RECORDS SUMMARY | ~2019-08-12 | XMS | Encounter Summary ---
Demographics + + + | Address | [address] | | | [place] [address] | + + + | Home Phone [...] Providers + +------+ + | Care Youth Coordinator Name | Role | Phone | [...] | | 2016 | | Center at [facility] [address] | [address] | | | | | [address] [place], | | | | | Mailcode: [place] | [place] [address] | | | | | for Health and | [phone] | | | | | [facility] 2 | | | | | | [place], [place] | | | | | | [address] | | | | | | [phone] | | | +--------+ + + + [...]
--- OUTSIDE RECORDS SUMMARY | ~2019-08-12 | XMS | Encounter Summary ---
Demographics + + + | Address | [address] | | | [place] [address] | + + + | Home Phone [...] Providers + +------+ + | Care Line Painting Machine Operator Name | Role | Phone [...] Complex | Alex Alba, | [facility] [address] | | | | | regional | ,PhD [address] | | | | | pain | [address] | [address] | | | | | syndrome | [address] | Mailcode: | | | | | type 1 of | Rd | [address] | | | | | left lower | [place], [place] | [address] | | | | | extremity | [address] | [place], [place] | | | | | Muscle pain | Phone: | [address] | | | | | Procedures | [phone] | Phone: | | | | | NM BONE | Fax: | [phone] | | | | | &/OR JOINT | [phone] | Fax: | | | | | IMAGING | | [phone] | | | | | TOMOGRAPHIC | [...] + + | 12/27/ | Ancillary | [facility] | Alex Sanchez, | | | 2018 | Orders | Pain Center at | ,PhD [address] | | | | | [facility] | [address] | | | | | [address] | [place], [place] | | | | | Mailcode: CH15P | [address] | | | | | [facility] | [phone] | | | | | and [place]ina, | | | | | | Building | | | | | | [place], [place] | | | | | | [address] | | | | | | [phone] | | | +--------+ + + + [...]
--- OUTSIDE RECORDS SUMMARY | ~2019-08-12 | XMS | Encounter Summary ---
Demographics + + + | Address | [address] | | | [place] [address] | + + + | Home Phone [...] Providers + +------+ + | Care Production Manager Name | Role | Phone | + +------+ + | Justo Vazquez MD | PCP | | + +------+ + Encounter Details +--------+ + + + + | Date | Type | Department | Care Team | Description | +--------+ + + + + | 10/20/ | Telephone | [facility] | Ilene Bright, | | | 2017 | | Pain Center at | INTERNET DATABASE SPECIALIST [address] | | | | | [facility] | Ave [place], [place] | | | | | [address] | [address] | | | | | Mailcode: CH15P | [phone] | | | | | [facility] | | | | | | and Healing, | | | | | | | | | | | | [place], [place] | | | | | | [address] | | | | | | [phone] | | | +--------+ + + + [...]
--- OUTSIDE RECORDS SUMMARY | ~2019-08-12 | XMS | Encounter Summary ---
Demographics + + + | Address | [address] | | | [place] [address] | + + + | Home Phone [...] Team Providers + +------+ + | Care Welder Explosion Name | Role | Phone | + [...] Rd | | | | | | [place], [place] | | | | | | [address] | | | +--------+ + + + [...]
--- OUTSIDE RECORDS SUMMARY | ~2019-08-12 | XMS | Encounter Summary ---
Demographics + + + | Address | [address] | | | [place] [address] | + + + | Home Phone [...] Team Providers + +------+ + | Care Granite Cutter Name | Role | Phone | [...] + + | 06/07/ | Telephone | [facility] | Kenny Gaspar MD | Other (Patient in | | 2017 | | Center at [facility] [address] | [address] | severe stomach Pain) | | | | [address] | [address] [facility], | | | | | Mailcode: [place] | [place] [address] | | | | | for Health and | [phone] | | | | | [facility] 2 | | | | | | [place], [place] | | | | | | [address] | | | | | | [phone] | | | +--------+ + + + [...]
--- OUTSIDE RECORDS SUMMARY | ~2019-08-12 | XMS | Clinical Summary ---
Demographics + + + | Address | [address] | | | [place] [address] | + + + | Home Phone | | + + + | Preferred Language | Unknown | + + + | Marital Status | Single | + + + | Anabaptism Affiliation | [id number] | + + + | Race | Unknown | + + + | Ethnic Group | Unknown | + + + Author + + + | Author | [facility] (Historical as of | | | 06-30-19) | + + + | Organization | [facility] (Historical as of | | | 06-30-19) [...] Team Providers + +------+ + | Care Elevator Repairer Name | Role | Phone | [...] since. She has undergone extensive therapy at [facility] | | [facility] at pain clinics in [place] as well and | | [place], [place]. She has had sympathetic nerve blocks [...] +------+-------+ + | MEDICARE | MEDICA | [id number] | | | [address] | | | RE | | | | [place] [address] | | | IP-OP | | | | | + +--------+ +------+-------+ + | PREMERA | PREMER | [id number] | | | [address] [address] | | | A BLUE | 3 | | | [place], [place] | | | CARD | | | | [address] | + +--------+ +------+-------+ + | MEDICAID | [place] | [id number] | | | [address] | | | CARE | | | | [place] | | | [place] | | | | [address] | + +--------+ +------+-------+ + + +--------+ [...] | | al/Fam | | 1989 | [phone] | [place], [place] | | | evita | | | [address] | [address] | + +--------+ +--------+ + +
--- OUTSIDE RECORDS SUMMARY | ~2019-08-12 | XMS | Encounter Summary ---
Demographics + + + | Address | [address] | | | [place] [address] | + + + | Home Phone [...] Providers + +------+ + | Care Supervisor Rod Placing Name | Role | Phone | + +------+ + | Justo Vazquez MD | PCP | | + +------+ + Encounter Details +--------+ + + + + | Date | Type | Department | Care Team | Description | +--------+ + + + + | 01/12/ | Telephone | [facility] | Kenny Gaspar MD | | | 2017 | | [place] [facility] [address] | [address] | | | | | [address] | [address] [place], | | | | | Mailcode: [place] | [place] [address] | | | | | [facility] and | [phone] | | | | | [facility], [facility] 2 | | | | | | [place], [place] | | | | | | [address] | | | | | | [phone] | | | +--------+ + + + [...]
--- OUTSIDE RECORDS SUMMARY | ~2019-08-12 | XMS | Encounter Summary ---
Demographics + + + | Address | [address] | | | [place] [address] | + + + | Home Phone [...] Team Providers + +------+ + | Care Mink Rancher Name | Role | Phone | + [...] | Diagnoses | Beulah | Edu Pt Acid Condenser | | | | Therapy | CRPS | Janak Martinez MD | Chh1 [address] | | | | | (complex | [address] | | | | | regional | [address] | Mailcode: | | | | | pain | Mailstop | [facility] | | | | | syndrome), | [id number] | for Health | | | | | lower limb | [place], [place] | and Healing, | | | | | Gait | [address] | Building [address] | | | | | disturbance | Phone: | [place], [place] | | | | | Muscle pain | [phone] | [address] | | | | | Procedures | Fax: | Phone: | | | | | PHYSICAL | [phone] | [phone] | | | | | THERAPY | [...] | | | [place] | Ave [place], [place] | syndrome), lower | | | | [address] | [phone] | limb (Primary Dx) | | | | Mailcode: CH3P | | | | | | [facility] | | | | | | and Healing, | | | | | | Building [address] | | | | | | Floor [place], [place] | | | | | | [address] | | | | | | [phone] | | | +--------+---------+ + + + [...] might be different f rom the original. [id number] BRODY FARAH Date of : 1990 Start of care: 02/14/2012 Date of onset: 02/14/2012 Referring/Attending Practitioner: Janak Riojas MD . Primary/Referral Diagnosis/ICD-9: 355.71B CRPS (complex regional pain syndrome), lower limb Insurance: Payor: [id number] [id number] [facility] Plan: BCBS OUT OF STATE Product Type: PP O Service period from: 02/14/2012 to: 08/12/2012 Number visits used/authorized: 12/26 [facility] PHYSICAL THERAPY PROGRESS NOTE SUBJECTIVE: [...] less stressful. Now she is working at [employer] 2-3 hours per week, and spends a [...] sometimes pain meds. Social History: lives in [place] [place], 22 years old, not working [...] concerns about therapy: she lives in [place]. She is r equesting family [...] any change in their status. Guillermo Sanon [facility] Outpatient Rehabilitation Services Mailcode: Ch3p [id number] [facility], 1st Floor [facility] [address] documented in this encounter Plan of Treatment Not on filedocumented as of this encounter Procedures + +--------+ + + + | Procedure Name | Priori | Date/Time | Associated Diagnosis | Comments | | | ty | | | | + +--------+ + + + | CT THERAPEUTIC | Routin | 05/03/2012 | CRPS [...]
--- OUTSIDE RECORDS SUMMARY | ~2019-08-12 | XMS | Encounter Summary ---
Demographics + + + | Address | [address] | | | [place] [address] | + + + | Home Phone [...] Team Providers + +------+ + | Care Ultrasound Technol Name | Role | Phone | + [...] + + | 10/21/ | Hospital | [place] [address] [address] | [place], | | | 2015 - | Encounter | [facility] Guillermo | MD Tala [address] | | | | | [address] [place] [address] | [facility] Guillermo | | | 10/25/ | | [place], [place] | [place], [place] | | | 2014 | | [address] | [address] | | | | | [phone] | [phone] | | | | | | | | | | | | Clifton Childers | | | | | | MD Nhan [address] [facility] | | | | | | Electra [address] | | | | | | [place], [place] | | | | | | [address] | | | | | | [phone] | | | | | | | [...] child. Followed by Dr. Katy berrios at [facility] in [place], [place]. Has been on a stable regimen for [...] agreeable with our plans. Clifton Childers MD Dry Heat Cabinet Attendant Division of Hospital Medicine Teaching Attending I [...] child. Followed by Dr. Katy berrios at [facility] in [place], [place], has been on a stable regimen [...] and plan. Lolita Ma MD, MPH Pager #[phone] PGY-1, Anesthesiology [facility] Associated attestation - Clifton Childers MD [...] exceptions as written below. ROS as per GM note, all others negative. Problem List Patients [...] agreeable with our plans. Clifton Childers MD Dry Heat Cabinet Attendant Division of [facility] Medicine Teaching Attending I spent 45 [...] on opioids -GI consulted, recommend CT enterography -Shanna hale MD, Dr. Madrid in contact with Dr. Moreau, [...] child. Followed by Dr. Katy berrios at [facility] in [place], [place], has been on a stable regimen for [...] and plan. Lolita Ma MD, MPH Pager #[phone] PGY-1, Anesthesiology [facility] Associated attestation - Clifton Childers MD - 10/23/2015 4:10 PM PSTGeneral Medicine Attending Progress Note Author: Clifton Childers MD Hospital Day # 2 PCP: BJORN Villalpando I personally interviewed the patient, performed the bocanegra elements of the physical examinatio n, and personally formulated the assessment and plan with Dr Moreau and Dr Ma. Please s [facility] progress note for additional details; notable exceptions [...] would like the patient to establish in [place] [facility] counseling and/or CBT as an outpatient if willing. Patient/Family Goals & Expectations: Above problems discussed with the patient who understands and is agreeable with our plans. Clifton Childers MD Dry Heat Cabinet Attendant Division of Hospital Medicine Teaching Attending I spent 40 minutes in the care of this patient >50% in counseling regarding abdominal pain/ workup, chronic pain, and coordination with GI and anesthesia. Aba Dorman MD - 10/23/2015 7:39 AM PSTFormatting of this note might be different fr om the original. INPATIENT ADULT PAIN SERVICE FOLLOW UP NOTE Date of Service: 10/23/2015 Author: Aba Domran MD Pain Service Attending Physician: Ulices Mckinley [...] good coping mechanism Heme/Lymphatic: negative Endocrine: negative Patrol Driver: negative Past Medical History: History of chronic [...] for he r CRPS in the pastm [facility] pharmacy does not carry this so we are trying to arrange for her to take her home medication via pharmacy approval 5. APS will sign off but please call with questions/concerns Aba Dorman MD, PGY 3 [employer] [place]-2 APS Pager: [phone] BILLING INFORMATION Deferred to attending physician. Ms. [...] up at this point. Please contact APS (#[id number]) if further assistance is needed. Ulices Lopez MD BILLING INFORMATION [facility] DEPARTMENT: [id number] Place of Service:- Inpatient Date of Service: 10/23/2015 CSN: [id number] Suggested Modifier: GC - Resident Involved Suggested CPT: 11013 - Follow up visit (includes PNB) - [...] today recd call from Dr. Madrid from [facility]. She has known pt for many yea rs and suggested ketamine and propofol gtt. Updated her on APS recommendations. She will hav e her office fax her clinic records to us. Pt was seen with Dr. Childers. Milton Moreau MD PGY-3, Internal Medicine Pager [phone] ozora, Pro edwards RN - 10/22/2015 10:06 AM PSTActing as scribe for the UR Committee Physician named below. The primary medical team for this patient and the [facility] UR Committee have agreed after furth er study that an inpatient admission was not medically necessary. This hospital stay is con verted to an outpatient stay through use of Medicare Condition Code 44. The patient was not ified of this change in writing. The providers involved in this decision were: For patient s primary medical team: Melissa Childers MD For [facility] UR Committee: Kerry HARRIS RN [...] | | | LABORATORY | | | [place] | | | SERVICES, | | | [...] | + + + + + | Gust | [address] | [place] [address] | | | SERVICES, LILLIAN | GUILLERMO [...] | | | | signed / JOYCE | | | | | | CYN 10/24/2015 13:08 | | | | | | PM Pending final | | | | | | approval / CHALINO | | | | | | RUBY 10/24/2015 12:21 | | | | | | PM Preliminary / | | | | | [...] | + + + | STAT | [facility] | | | LABORATORY | | | SERVICES, LILLIAN | + + + + + + + + | Performing | Address | City/State/Zipcode | Phone Number | | Organization | | | | + + + + + | [facility] | [address] | [place] [address] | | | SERVICES, CORE | GUILLERMO [...] | | | LABORATORY | | | [place] | | | SERVICES, | | | [...] the MDRD equation recommended by the | [facility] | | National Kidney Disease Education Program. [...] + + + + | [facility] | [address] | [place] [address] | | | SERVICES, CORE | GUILLERMO [...] [facility] | [address] | [place] [address] | | | SERVICES, CORE | PARK [...] [facility] | [address] | [place] [address] | | | SERVICES, CORE | PARK [...] ranges for full anticoagulation: INR for | [facility] | | Venous Thromboembolism (2.0 - 3.0) INR INR | LABORATORY | | for most patients with mech. valves (2.5 - 3.5) INR | LILLIAN CROSS | + + + + + + + + | Performing | Address | City/State/Zipcode | Phone Number | | Organization | | | | + + + + + | [facility] | [address] | [place] [address] | | | SERVICESLILLIAN | [address] [...] [facility] | [address] | [place] [address] | | | SERVICES, CORE | GUILLERMO [...] | | | LABORATORY | | | [place] | | | SERVICES, | | | [...] | Interpretive Information: <60 mL/min/1.73 sq | LILLIAN CROSS | | m Chronic Kidney Disease <15 [...] + + + + | [facility] | [address] | [place] [address] | | | LILLIAN CROSS | GUILLERMO [...] | | | | | NEEDED, Starting 10/21/15 at | | | | | | | 2341, Until 10/22/15 at 1425, | | | | | [...] | | | | 1 dose, [facility] 10/23/15 at 1245 | | PM PST | | | | + +-------+ +-------+---+---+ +---+---+ | | | +---+---+ + +-------+ +--------+---+---+ | ibuprofen (MOTRIN) tablet 600 | Given | 10/25/20 | 600 mg | | | | mg 600 mg, oral, EVERY 6 HOURS, | | 15 8:05 | | | | | First dose on [facility] 10/23/15 at | | AM PST [...] | | | | 1 dose, [facility] 10/23/15 at 1245 | | PM [...] | | | | | 1 dose, 10/21/15 at 2230 | | PM [...] intravenous, ONCE, 1 dose, Tue | | 15 10:09 | | | [...] | HOURS, 5 doses, First dose on Sat | | AM PST | | | | | 10/25/15 at 0330, Last dose on | | | | | | | 10/25/15 at 1130 | | | | | [...] | | | BEFORE MEALS, First dose on Wed | | AM PST | | | | | 10/22/15 at 0930, Until | | | | | | [...] | | | | | NEEDED, Starting 10/21/15 at | | AM PST | | [...] | | | | | NEEDED, Starting 10/21/15 at | | | | | | [...] | | | | | NEEDED, Starting Clary 10/23/15 at | | | | | [...] | | oral, TWICE DAILY, First dose on | | AM PST | | | [...]
--- OUTSIDE RECORDS SUMMARY | ~2019-08-12 | XMS | Encounter Summary ---
Demographics + + + | Address | [address] | | | [place] [address] | + + + | Home Phone [...] + +------+ + | Care Clinical Research Technician Name | Role | Phone | [...] (ortho question) | | | | [facility] | [facility] | | | | | [address] | [place], [place] | | | | | Mailcode: CH15P | [address] | | | | | [facility] | [phone] | | | | | and Healing, | | | | | | Building | | | | | | [place], [place] | | | | | | [address] | | | | | | [phone] | | | +--------+ + + + [...]
--- OUTSIDE RECORDS SUMMARY | ~2019-08-12 | XMS | Encounter Summary ---
Demographics + + + | Address | [address] | | | [place] [address] | + + + | Home Phone [...] Team Providers + +------+ + | Care Brand Coordinator Name | Role | Phone | [...] Medical Records | | 2017 | | [place] [address] [address] | [address] | Review | | | | [address] | [address] [place], | | | | | Mailcode: [place] | [place] [address] | | | | | for Health and | [phone] | | | | | [facility] [address] | | | | | | [place], [place] | | | | | | [address] | | | | | | [phone] | | | +--------+ + + + [...]
--- OUTSIDE RECORDS SUMMARY | ~2019-08-12 | XMS | Encounter Summary ---
Demographics + + + | Address | [address] | | | [place] [address] | + + + | Home Phone [...] Team Providers + +------+ + | Care Spindle Plumber Name | Role | Phone | + +------+ + | Justo Vazquez MD | PCP | | + +------+ + Encounter Details +--------+ + + + + | Date | Type | Department | Care Team | Description | +--------+ + + + + | 08/30/ | Documentati | Pain Center at [facility] | Jamel Madden, | | | 2018 | on | 15 [address] | PhD [address] | | | | | [address] Mailcode: | [place], [place] | | | | | [address] for | [address] | | | | | Health and Healing, | [phone] | | | | | | | | | | | [place], [place] | | | | | | [address] | | | | | | [phone] | | | +--------+ + + + [...]
--- OUTSIDE RECORDS SUMMARY | ~2019-08-12 | XMS | Encounter Summary ---
Demographics + + + | Address | [address] | | | [place] [address] | + + + | Home Phone [...] Providers + +------+ + | Care Systems Consultant Name | Role | Phone | [...] | | | | | syndrome | [facility] | [facility] | | | | | type [address] of | [address] | Rd [place], | | | | | left lower | [place], [place] | [place] | | | | | extremity | [address] | [address] | | | | | Muscle pain | Phone: | Phone: | | | | | Procedures | | | | | | | REQUEST TO | Fax: | Fax: | | | | | SURGERY | | | | | | | MANAGER GAMES | | | +--------+---------+ + + + [...] | syndrome | [place] [facility] [address] [place] | | | | | type 1 of | Rd | Rd [place], | | | | | left lower | [facility] [place] | [place] | | | | | extremity | [address] | [address] | | | | | Muscle pain | Phone: | Phone: | | | | | Procedures | | | | | | | REQUEST TO | Fax: | Fax: | | | | | SURGERY | [phone] | [phone] | | | | | MANAGER GAMES | | | | | | | ND INJ,ANES | | | | | | | AGENT,SCIATI | | | | | | | C | | | | | | | NERVE,SINGLE | | | | | | | ND INJECT | | | | | | | NERV | | | | | | | BLCK,OTHR | | | | | | | PERIPH NERV | | | | | | | ND SONO | | | | | | | GUIDE FOR | | | | | | | NEEDLE | | | | | | | PLACEMENT | | | | | | | ND MOD | | | | | | | SEDATION | | | | | | | >=5YRS SAME | | | | | | | MD/QUAL | | | | | | | PROV; INIT | | | | | | | 15 MIN ND | | | | | | | [...] | | | | | Procedures | [facility], [place] | Joel [place], | | | | | CONSULT TO | [address] | [place] | | | | | PAIN | Phone: | [phone] | | | | | MANAGEMENT | [phone] | Phone: | | | | | | Fax: | [phone] | | | | | | [phone] | Fax: | | | | | | | [phone] | +--------+--------+ + + + + Encounter Details +--------+---------+ + + + | Date | Type | Department | Care Team | Description | +--------+---------+ + + + | 12/14/ | Office | [facility] Comprehensive | Alex Sanchez, | Complex regional | | 2018 | Visit | Pain Center at | ,PhD [address] | pain syndrome type 1 | | | | [facility] | [facility] [address] | of left lower | | | | [address] | [place], [place] | extremity (Primary | | | | Mailcode: CH15P | [address] | Dx); Muscle pain; | | | | [facility] | [phone] | Pain of upper | | | | and Healing, | | abdomen | | | | | | | | | | Floor [place], [place] | | | | | | [address] | | | | | | [phone] | | | +--------+---------+ + + + [...] make sure this is scheduled with the Financial Institution Branch Manager. PRE-PROCEDURE INSTRUCTIONS 1. Please bring a nascar driver with you as we may give you medications that impair your ability to drive. This is necessary even if you do not receive sedation. You may take a taxi or [employer] if you are accompanied by a responsible [...] blood thinning medications (other than aspirin), [facility] doctor who is doing your procedure will communicate with the provider who is prescribing y our anticoagulant therapy. If you do not have clear instructions on what to do with your an ticoagulant by 2 weeks before your procedure, please contact [facility] to cl arify your instructions. The phone number for questions or concerns is [phone]. documented in this encounter Progress Notes Charline [...] D,PhD - 12/14/2017 10:25 AM PST [facility] Return Visit Date: 12/14/2017 Chief Complaint Patient presents with Back pain Low back pain Abdominal pain Pain in right leg Pain in left leg History of Present Illness: Tracie Farah is a 27 year old female, whose last appoi ntment at the [facility] was October 11, 2017, [...] treatment plan. * Follow up with [facility] as needed. Today, [...] was treated by Christie Madrid MD in [place], [place] for three years before she abruptly ended her practice due to illness. This left her without a doctor to help her manage her chronic pain. In addition to her CRPS symptoms (diagnosed 2010), she has some sto mach issues that she has been working with Ilene Childs DNP, CORN PICKER-C. She has a scar on her stomach [...] a lot of great improvements while in [place], [place]. Weaning her off of the narcotic [...] her medical history that she spent in [place], [place] where she part ook in a [...] Spinal cord stimulator trial - Nerve blocks TITLE INSURANCE EXAMINER Brief Pain Inventory: (ten= worst possible [...] Hemroidectomy Trial spinal cord stimulator leads 08/02/2012 [facility], Surgeon: Janak Riojas MD Cholecystectomy [...] History Social History Narrative Single. Goes to [employer] with a light load. Has been working at [employer], can' t work on cr[employer]ach[employer]el [employer]. Has roommates. Allergies Allergen Reactions Morphine Anaphylaxis [...] by physician. Concentration is 150mg/mL. Compounded by [facility] ) LAMOTRIGINE 200 MG TABLET Take [...] by [facility] Digestive [facility]- 2 gallon bowel prep POLYETHYLENE GLYCOL [...] and summary of old medical records (source: [employer]), as summarized in the body of the [...] to her by Christie Madrid MD in [place], [place]. As she has since left the [...] today. I jacqueline vandanajorge spoken with our remote medical coder, Evelia Gonzalez MD who agrees that as [...] peripheral nerve stimulation. As she lives in [place], [place] with her family (3.5 hours away), [...] by Sonia Key. Alex Sanchez MD PhD Dental Ceramist Helper Anesthesiology and Pain Management [facility] Post visit: I reviewed the [...] KEVIN SHAH | [address] | [place] [address] | | | SERVICES, CORE | GUILLERMO [...]
--- OUTSIDE RECORDS SUMMARY | ~2019-08-12 | XMS | Encounter Summary ---
Demographics + + + | Address | [address] | | | [place] [address] | + + + | Home Phone [...] Team Providers + +------+ + | Care Network Control Supervisor Name | Role | Phone | + +------+ + | Justo Vazquez MD | PCP | | + +------+ + Encounter Details +--------+ + + + + | Date | Type | Department | Care Team | Description | +--------+ + + + + | 03/08/ | Hospital | Radiology/Imaging | Ranjeet Amanda, | | | 2018 | Encounter | Lab at [facility] [address] | [address] | | | | | [address] Mailcode: | [place], [place] | | | | | [facility] | [address] | | | | | and Martina, | [phone] | | | | | | | | | | | Floor [place], [place] | | | | | | [address] | | | | | | [phone] | | | +--------+ + + + [...] Note | + + | Service Account, [employer] Res In Interface - 03/08/2018 9:42 AM [...]
--- OUTSIDE RECORDS SUMMARY | ~2019-08-12 | XMS | Encounter Summary ---
Demographics + + + | Address | [address] | | | [place] [address] | + + + | Home Phone [...] Providers + +------+ + | Care Medical Appointment Scheduler Name | Role | Phone | [...] | | syndrome | [place] | [facility] | | | | | type 1 of | Rd | Rd [place], | | | | | left lower | [place], [place] | [place] | | | | | extremity | [address] | [address] | | | | | Procedures | Phone: | Phone: | | | | | REQUEST TO | [phone] | [phone] | | | | | SURGERY | Fax: | Fax: | | | | | INFORMATION TECHNOLOGY SPECIALIST | [phone] | [phone] | +--------+---------+ + + + + Encounter Details +--------+---------+ + + + | Date | Type | Department | Care Team | Description | +--------+---------+ + + + | 12/22/ | Office | [facility] Comprehensive | Ilene Bright, | Complex regional | | 2019 | Visit | Pain Center at | NEON GLASS BENDER [address] | pain syndrome type 1 | | | | [facility] | Ave [place], [place] | of left lower | | | | [address] | [address] | extremity; S/P | | | | Mailcode: CH15P | [phone] | insertion of spinal | | | | [facility] | | cord stimulator | | | | and Healing, | | | | | | Building , | | | | | | Floor [place], [place] | | | | | | [address] | | | | | | [phone] | | | +--------+---------+ + + + [...] r your reference. - The [place] underwriting sales representative met with you and made adjustments to your stimulator. I spoke w ith the underwriting sales representative and she is happy with [...] female, whose last appoi ntment at the [facility] was 12/07/2018 following [...] order to tolerate her incision site pain. CHRISTIAN SCIENCE READER Brief Pain Inventory: (ten= worst possible pain [...] Hemroidectomy Trial spinal cord stimulator leads 08/02/2012 [facility], Surgeon: Janak Riojas MD Cholecystectomy Appendectomy [...] History Social History Narrative Single. Goes to [employer] with a light load. Has been working at [employer], can' t work on weave energy. Has roommates. Allergies Allergen Reactions Morphine Anaphylaxis [...] GRAM SOLUTION Take as directed by [facility] Digestive Health- 2 gallon bowel prep [...] nausea Abdominal pain Abdominal scar neuroma [facility] CLINICAL PROTOCOL PATIENT (CLNPRO) - Implanted [...] and summary of old medical records (source: [facility], [facility] Everywhere), as summarized in the body of [...] for her surgical incision. The [facility] underwriting sales representative visited the patient in order [...] ed by Collin Salomon. Ilene Childs DNP, [facility] GL[facility] BENDER-C [facility] [address] [place] [address] mmarcelo, Charline Torres MA - 12/22/2018 11:00 [...]
--- OUTSIDE RECORDS SUMMARY | ~2019-08-12 | XMS | Encounter Summary ---
Demographics + + + | Address | [address] | | | [place] [address] | + + + | Home Phone [...] Providers + +------+ + | Care Shear Scrapman Name | Role | Phone | + +------+ + | Justo Vazquez MD | PCP | | + +------+ + Encounter Details +--------+--------+ + + + | Date | Type | Department | Care Team | Description | +--------+--------+ + + + | 12/26/ | Refill | [facility] | Alex Sanchez, | | | 2019 | | Pain Center at | ,PhD [address] | | | | | [facility] | [address] | | | | | [address] | [place], [place] | | | | | Mailcode: CH15P | [address] | | | | | [place] for [facility] | [phone] | | | | | and Healing, | | | | | | | | | | | | [place], [place] | | | | | | [address] | | | | | | [phone] | | | +--------+--------+ + + + [...]
--- OUTSIDE RECORDS SUMMARY | ~2019-08-12 | XMS | Encounter Summary ---
Demographics + + + | Address | [address] | | | [place] [address] | + + + | Home Phone [...] Providers + +------+ + | Care Web Methods Developer Name | Role | Phone | + +------+ + | Justo Vazquez MD | PCP | | + +------+ + Encounter Details +--------+ + + + + | Date | Type | Department | Care Team | Description | +--------+ + + + + | 09/25/ | Pharmacy | [facility] | | | | 2018 | Visit | & [facility] | | | | | | [address] | | | | | | Mailcode: [place] | | | | | | [facility] and | | | | | | Healing, [address] | | | | | | [facility] [place] | | | | | | [address] | | | | | | [phone] | | | +--------+ + + + [...]
--- OUTSIDE RECORDS SUMMARY | ~2019-08-12 | XMS | Encounter Summary ---
Demographics + + + | Address | [address] | | | [place] [address] | + + + | Home Phone [...] Team Providers + +------+ + | Care Tea Tree Farm Worker Name | Role | Phone | + +------+ + | Justo Vazquez MD | PCP | | + +------+ + Encounter Details +--------+------+ + + + | Date | Type | Department | Care Team | Description | +--------+------+ + + + | 12/14/ | Lab | Laboratory at [facility] | | Complex regional | | 2018 | | [address] | | pain syndrome type 1 | | | | [place], [place] | | of left lower | | | | [address] | | extremity; Muscle | | | | [phone] | | pain | +--------+------+ + + + Social History [...] regional | Results for this | | SCREEN,URINE;W/DORAI | e | 11:42 AM | pain syndrome type 1 | procedure are in the | | RM | | PST | of left lower | results section. | | | | | extremity Muscle | | | | | | pain | | + +--------+ + + + documented in this encounter Results DRUG SCREEN,URINE;W/CONFIRM (12/14/2017 11:42 [...] + + + + | [facility] | [address] | [place] [address] | | | SERVICES, CORE | GUILLERMO [...]
--- OUTSIDE RECORDS SUMMARY | ~2019-08-12 | XMS | Encounter Summary ---
Demographics + + + | Address | [address] | | | [place] [address] | + + + | Home Phone [...] Team Providers + +------+ + | Care Specifications Checker Name | Role | Phone | + +------+ + | Justo Vazquez MD | PCP | | + +------+ + Encounter Details +--------+------+ + + + | Date | Type | Department | Care Team | Description | +--------+------+ + + + | 12/14/ | Lab | Laboratory at [facility] | | Complex regional | | 2018 | | [address] | | pain syndrome type 1 | | | | [place], [place] | | of left lower | | | | [address] | | extremity; Muscle | | | | [phone] | | pain | +--------+------+ + + [...] | + + + + + | [facility] | [address] | [place] [address] | | | SERVICES, CORE | GUILLERMO [...]
--- OUTSIDE RECORDS SUMMARY | ~2019-08-12 | XMS | Encounter Summary ---
Demographics + + + | Address | [address] | | | [place] [address] | + + + | Home Phone [...] Team Providers + +------+ + | Care Indian Blanket Weaver Name | Role | Phone | + +------+ + | Justo Vazquez MD | PCP | | + +------+ + Encounter Details +--------+------+ + + + | Date | Type | Department | Care Team | Description | +--------+------+ + + + | 04/23/ | Lab | Laboratory at [facility] | | Other chronic pain ; | | 2018 | | [address] | | Complex regional | | | | [place], [place] | | pain syndrome type 1 | | | | [address] | | of left lower | | | | [phone] | | extremity | +--------+------+ + + [...] | + + + + + | [facility] | [address] | [place] [address] | | | [place], LILLIAN | GUILLERMO [...]
--- OUTSIDE RECORDS SUMMARY | ~2019-08-12 | XMS | Encounter Summary ---
Demographics + + + | Address | [address] | | | [place] [address] | + + + | Home Phone [...] Providers + +------+ + | Care Surgical Consultant Name | Role | Phone | [...] | | Complex | Alex Alba, | [facility] [address] | | | | | regional | ,PhD [address] | | | | | pain | [address] | Giuliana Maldonado | | | | | syndrome | [address] | Mailcode: | | | | | type 1 of | Rd | [address] | | | | | left lower | [place], [place] | [address] | | | | | extremity | [address] | [place], [place] | | | | | Muscle pain | Phone: | [address] | | | | | Procedures | [phone] | Phone: | | | | | NM BONE | Fax: | [phone] | | | | | &/OR JOINT | [phone] | Fax: | | | | | IMAGING | | [phone] | | | | | TOMOGRAPHIC | [...] | | | | | | IA BONE | | | | | | | IMAGING, | | | | | | | LIMITED AREA | | | | | | | IA BONE | | | | | | [...] | 2018 | Encounter | at [facility] [address] | ,PhD [address] | | | | | [address] | [address] | | | | | Mailcode: [address] | [place], [place] | | | | | [address] | [address] | | | | | [place], [place] | [phone] | | | | | [address] | | | | | | [phone] | | | +--------+ + + + [...]
--- OUTSIDE RECORDS SUMMARY | ~2019-08-12 | XMS | Encounter Summary ---
Demographics + + + | Address | [address] | | | [place] [address] | + + + | Home Phone [...] Team Providers + +------+ + | Care Sheriff Sergeant Name | Role | Phone | [...] | | syndrome | [address] | [facility] | | | | | type 1 of | Rd | Rd [place], | | | | | left lower | [place], [place] | [place] | | | | | extremity | [address] | [address] | | | | | Procedures | Phone: | Phone: | | | | | REQUEST TO | [phone] | [phone] | | | | | SURGERY | Fax: | Fax: | | | | | [facility] | [phone] | [phone] | +--------+---------+ + + + + Encounter Details +--------+---------+ + + + | Date | Type | Department | Care Team | Description | +--------+---------+ + + + | 09/28/ | Office | [facility] Comprehensive | Yun Frey, GRINDER CHIPPER | Complex regional | | 2018 | Visit | Pain Center at | [address] | pain syndrome type 1 | | | | [facility] | [place], [place] | of left lower | | | | [address] | [address] | extremity (Primary | | | | Mailcode: CH15P | [phone] | Dx); Arthralgia of | | | | [place] [facility] | | left lower leg | | | | and Healing, | | | | | | | | | | | | Floor [place], [place] | | | | | | [address] | | | | | | [phone] | | | +--------+---------+ + + + [...] the time to see us in the [facility]. It was great to s ee you. Below is a summary of the discussion that we had today: - Please keep your appointment with Dr. Sanchez on 10/02/2018. -Please contact the [facility]'s rep if you have any further question on programming. documented in this encounter Progress Notes Cristela Barth MA - 09/28/2018 12:05 PM PSTCMA History: [...] and social withdrawal Yun Tim NP - 12:05 PM PST September 28, 2018 Tracie Farah [id number] [facility] Comprehensive Pain Center Return Visit Chief [...] drawing which I reviewed. [facility] Questionnaire Follow-up Patient 10/10/2017 Please describe [...] DRG Spinal Cord Stimuation Trial with St. Reasult system LEVEL/LATERALITY: left L4, L5. Till date, [...] up to 7%. After seeing th sales representative advertising today and killian ing adjustments, she was [...] Hemroidectomy Trial spinal cord stimulator leads 08/02/2012 [facility], Surgeon: Janak Riojas MD Cholecystectomy [...] the vein (IV) every eight hour s. 5217-8941-50 COMPOUNDED MED RX CONTROLLED (SEE ADMIN INSTRUCT [...] by physician. Concentration is 150mg/mL. Compounded by [facility] ) KETOROLAC IM Inject into the muscle [...] (IV) every twel ve hours as needed. 4103-6675-07 ONDANSETRON 4 MG DISINTEGRATING TABLET Dissolve 1 tablet in mouth every twelve hours as nee ded. PANTOPRAZOLE 40 MG TABLET,DELAYED RELEASE Take 40 mg by mouth once daily. PEG 3350-ELECTROLYTES 236 GRAM-22.74 GRAM-6.74 GRAM-5.86 GRAM SOLUTION Take as directed by [facility] Digestive Health- 2 gallon [...] been given programming opti ons by the [employer]'s device sales representative advertising, Michele. At this time, there is no complication from the DRG trial. Recommendations/Plan: 1. Recommend to keep her appointment with Dr. Sanchez on 10/02/2018. 2. To contact the [employer]'s rep if she has any further question on programming. 09/28/2018: I, Dayana Ivan, am functioning as a medical lab specialist for Yun Frey NP. I have reviewed and verified the above scribed note of my visit with this patient as record ed by Ms. Dayana Ivan. Jeanine Frey (Mr.) MSN, ACNP- Nurse Practitioner Acute Pain Service /[facility] [address] [place] [address] documented in this enco unter Plan of [...]
--- OUTSIDE RECORDS SUMMARY | ~2019-08-12 | XMS | Encounter Summary ---
Demographics + + + | Address | [address] | | | [place] [address] | + + + | Home Phone [...] Team Providers + +------+ + | Care Policy Writer Name | Role | Phone | [...] Pain Medicine | Diagnoses | Chasity, | [employer] [facility] | | | | / Pain | Abdominal | MD Kenny | [address] | | | | Management | pain, | [address] | Ave | | | | | unspecified | [facility] | Mailcode: | | | | | location | Rd | CH15P Center | | | | | Procedures | [place], [place] | for Health | | | | | CONSULT TO | [address] | and Healing, | | | | | PAIN | Phone: | Building | | | | | MANAGEMENT | [phone] | 1,15th Floor | | | | | | Fax: | [place], [place] | | | | | | [phone] | [address] | | | | | | | Phone: | | | | | | | [phone] | | | | | | | Fax: | | | | | | | [phone] | +--------+--------+ + + + + Encounter Details +--------+---------+ + + + | Date | Type | Department | Care Team | Description | +--------+---------+ + + + | 07/11/ | Office | [facility] | Ilene Bright, | Pain of upper | | 2017 | Visit | Pain Center at | LIVESTOCK AGENT [address] | abdomen (Primary | | | | [place] | Ave [place], [place] | Dx); Intractable | | | | [address] | [address] | cyclical vomiting | | | | Mailcode: CH15P | [phone] | with nausea; | | | | [place] [facility] | | Irritable bowel | | | | and Healing, | | syndrome with | | | | Building | | constipation; | | | | Floor [place], [place] | | Complex regional | | | | [address] | | pain syndrome type 1 | | | | [phone] | | of left lower | | [...] and determine next steps. Ilene Childs DNP, LIVESTOCK AGENT-C Adult Pain Service /[facility] [address] [place] [address] documented in this encounter Progress Notes Ilene Bright FNP - 07/11/2017 1:35 PM PDTFormatting of this note might be different fr om the original. [facility] Return Visit Date: 07/11/2017 Chief Complaint Patient presents with Abdominal pain Back pain History of Present Illness: Tracie Farah is a 27 year old female, whose last appoi ntment at the [facility] was April 25, 2017, for [...] is in the process of arranging home [facility] for Tracie. She has also changed [...] her abdominal pain an d associated symptoms. [facility] QUESTIONNAIRE BRIEF PAIN 07/11/2017 Please rate how [...] has interfered with your sleep : 5 SAMPLE MOUNTER Questionnaire Follow-up Patient 07/11/2017 Please describe the [...] Hemroidectomy Trial spinal cord stimulator leads 08/02/2012 [facility], Surgeon: Janak Riojas MD Cholecystectomy Appendectomy [...] History Social History Narrative Single. Goes to [employer] with a light load. Has been working at [employer], can' t work on [employer]. Has roommates. Allergies Allergen Reactions Morphine Anaphylaxis [...] by physician. Concentration is 150mg/mL. Compounded by [facility] ) LAMOTRIGINE 200 MG TABLET Take [...] and summary of old medical records (source: [employer]), as summarized in the body of the [...] Shantel Salinas, am functioning as a medical transport specialist for Ilene Childs DNP, TERESA-C I have reviewed and verified the above scribed note of my visit with this patient as record ed by Shantel Salinas. Ilene Childs DNP, LIVESTOCK AGENT-C Adult Pain Service [facility] [address] [place] [address] Addendum: I paged Dr. Les Gaspar. He was out of the clinic, I spoke with the covering provider and dianelys Hodges's request for food allergy testing. Since Tracie thinks her pain and vomiting may b e triggered by gluten, covering provided ordered appropriate workup, which I communicated to Tracie and the the lab in [place], [place]. She will followup with me and GI once these results are available. Ilene Childs DNP, LIVESTOCK AGENT-C Adult Pain Service [facility] [address] [place] [address] documented in this e ncounter Plan of [...]
--- OUTSIDE RECORDS SUMMARY | ~2019-08-12 | XMS | Encounter Summary ---
Demographics + + + | Address | [address] | | | [place] [address] | + + + | Home Phone [...] Providers + +------+ + | Care Mobile Homes Repairer Name | Role | Phone | + +------+ + | Justo Vazquez MD | PCP | | + +------+ + Encounter Details +--------+ + + + + | Date | Type | Department | Care Team | Description | +--------+ + + + + | 05/14/ | Telephone | [facility] | Alex Sanchez, | | | 2019 | | Pain Center at | ,PhD [address] | | | | | [facility] | [facility] [address] | | | | | [address] | [place], [place] | | | | | Mailcode: CH15P | [address] | | | | | [place] [facility] | [phone] | | | | | and Healing, | | | | | | | | | | | | Floor [place], [place] | | | | | | [address] | | | | | | [phone] | | | +--------+ + + + [...]
--- OUTSIDE RECORDS SUMMARY | ~2019-08-12 | XMS | Encounter Summary ---
Demographics + + + | Address | [address] | | | [place] [address] | + + + | Home Phone [...] Providers + +------+ + | Care Facilities Clerk Name | Role | Phone | + +------+ + | Allegra Gandhi | PCP | | + +------+ + Encounter Details +--------+ + + + + | Date | Type | Department | Care Team | Description | +--------+ + + + + | 02/13/ | Outside | UNKNOWN DEPARTMENT | Other, Faculty | | | 2011 | Records | [address] | [phone] | | | | | [address] | | | | | | [place], [place] | | | | | | [address] | | | +--------+ + + + [...]
--- OUTSIDE RECORDS SUMMARY | ~2019-08-12 | XMS | Clinical Summary ---
Demographics + + + | Address | [address] | | | [place] [address] | + + + | Home Phone | | + + + | Preferred Language | Unknown | + + + | Marital Status | Single | + + + | Orthodoxy Affiliation | 1013 | + + + | Race | Unknown | + + + | Ethnic Group | Unknown | + + + Author + + + | Author | [employer] (Historical as of | | | 06-30-19) | + + + | Organization | [facility] [employer] (Historical as of | | | 06-30-19) [...] Team Providers + +------+ + | Care Scallop Cutter Machine Name | Role | Phone | [...] extensive therapy at [facility] | | [facility] at pain clinics in [place] as well and | | [place], [place]. She has had sympathetic nerve blocks [...] +------+-------+ + | MEDICARE | MEDICA | [id number] | | | [address] | | | RE | | | | [place] [address] | | | IP-OP | | | | | + +--------+ +------+-------+ + | PREMERA | PREMER | [id number] | | | [address] [address] | | | A BLUE | 3 | | | [place], [place] | | | CARD | | | | [address] | + +--------+ +------+-------+ + | MEDICAID | [place] | [id number] | | | [address] | | | CARE | | | | [place] | | | [place] | | | | [address] | + +--------+ +------+-------+ + + +--------+ [...] | | al/Fam | | 1989 | [phone] | [place], [place] | | | evita | | | [address] | [address] | + +--------+ +--------+ + +
--- OUTSIDE RECORDS SUMMARY | ~2019-08-12 | XMS | Encounter Summary ---
Demographics + + + | Address | [address] | | | [place] [address] | + + + | Home Phone [...] Team Providers + +------+ + | Care Bog Worker Name | Role | Phone | [...] | | | | | syndrome | [facility] | [facility] | | | | | type 1 of | Rd | Rd [place], | | | | | left lower | [place], [place] | [place] | | | | | extremity | [address] | [address] | | | | | Muscle pain | Phone: | Phone: | | | | | Procedures | | | | | | | REQUEST TO | Fax: | Fax: | | | | | SURGERY | | | | | | | AUTOMOTIVE ARTIST | | | +--------+---------+ + + + [...] | syndrome | [address] | [address] | | | | | type 1 of | Rd | Rd [place], | | | | | left lower | [facility] [place] | [place] | | | | | extremity | [address] | [address] | | | | | Muscle pain | Phone: | Phone: | | | | | Procedures | | | | | | | REQUEST TO | Fax: | Fax: | | | | | SURGERY | [phone] | [phone] | | | | | AUTOMOTIVE ARTIST | | | | | | | [...] | | | | | Procedures | [facility] [place] | [place], | | | | | CONSULT TO | [address] | [place] | | | | | PAIN | Phone: | [address] | | | | | MANAGEMENT | [phone] | Phone: | | | | | | Fax: | [phone] | | | | | | [phone] | Fax: | | | | | | | [phone] | +--------+--------+ + + + + Encounter Details +--------+---------+ + + + | Date | Type | Department | Care Team | Description | +--------+---------+ + + + | 12/14/ | Office | [facility] Comprehensive | Alex Sanchez, | Complex regional | | 2018 | Visit | Pain Center at | ,PhD [address] | pain syndrome type 1 | | | | [facility] | [facility] [address] | of left lower | | | | [address] | [place], [place] | extremity (Primary | | | | Mailcode: CH15P | [phone] | Dx); Muscle pain; | | | | [facility] | [phone] | Pain of upper | | | | and Healing, | | abdomen | | | | | | | | | | Floor [place], [place] | | | | | | [address] | | | | | | [phone] | | | +--------+---------+ + + + [...] make sure this is scheduled with the Adoption Manager. PRE-PROCEDURE INSTRUCTIONS 1. Please bring a driver/merchandiser with you as we may give you medications that impair your ability to drive. This is necessary even if you do not receive sedation. You may take a taxi or [place] if you are accompanied by a responsible [...] blood thinning medications (other than aspirin), [facility] doctor who is doing your procedure will communicate with the provider who is prescribing y our anticoagulant therapy. If you do not have clear instructions on what to do with your an ticoagulant by 2 weeks before your procedure, please contact [facility] to cl arify your instructions. The phone number for questions or concerns is [phone]. documented in this encounter Progress Notes Charline [...] M D,PhD - 12/14/2017 10:25 AM PST [facility] Return Visit Date: 12/14/2017 Chief Complaint Patient presents with Back pain Low back pain Abdominal pain Pain in right leg Pain in left leg History of Present Illness: Tracie Farah is a 27 year old female, whose last appoi ntment at the [facility] was October 11, 2017, [...] [facility] as [facility]. Today, [...] was treated by Christie Madrid MD in [place], [place] for three years before she abruptly ended her practice due to illness. This left her without a doctor to help her manage her chronic pain. In addition to her CRPS symptoms (diagnosed 2010), she has some sto mach issues that she has been working with Ilene Childs DNP, ARCHITECTURE INSTRUCTOR-C. She has a scar on her stomach [...] a lot of great improvements while in [place], [place]. Weaning her off of the narcotic [...] her medical history that she spent in [place], [place] where she part ook in a [...] Spinal cord stimulator trial - Nerve blocks DENTAL THERAPIST Brief Pain Inventory: (ten= worst possible [...] Trial spinal cord stimulator leads 08/02/2012 [facility], Surgeon: Janak Riojas MD Cholecystectomy [...] History Social History Narrative Single. Goes to [employer] with a light load. Has been working at [employer], can' t work on [employer]. Has roommates. Allergies Allergen Reactions Morphine Anaphylaxis [...] by physician. Concentration is 150mg/mL. Compounded by [facility] ) LAMOTRIGINE 200 MG TABLET Take [...] GRAM-5.86 GRAM SOLUTION Take as directed by [facility] Digestive [facility]- [...] and summary of old medical records (source: [employer]), as summarized in the body of [...] to her by Christie Madrid MD in [place], [place]. As she has since left the [...] I jacqueline vandanajorge spoken with our medical assistant per diem, Evelia Gonzalez MD who agrees that as [...] peripheral nerve stimulation. As she lives in [place], [place] with her family (3.5 hours away), [...] by Sonia Key. Alex Sanchez MD PhD Molder Trimmer Anesthesiology and Pain Management [facility] Post visit: I reviewed the UDS, and [...] KEVIN SHAH | [address] | [place] [address] | | | SERVICES, CORE | GUILLERMO [...]
--- OUTSIDE RECORDS SUMMARY | ~2019-08-12 | XMS | Encounter Summary ---
Demographics + + + | Address | [address] | | | [place] [address] | + + + | Home Phone [...] + +------+ + | Care First Aid Nurse Name | Role | Phone | [...] + + | 10/21/ | Hospital | [place] [address] | [place], | | | 2015 - | Encounter | [facility] Gu[place]ermo | MD Tala [address] | | | | | [address] [place] [address] | [facility] Guillermo | | | 10/25/ | | [place], [place] | [place], [place] | | | 2014 | | [address] | [address] | | | | | [phone] | [phone] | | | | | | | | | | | | Clifton Childers | | | | | | MD Nhan [address] [facility] | | | | | | [place] [address] | | | | | | [place], [place] | | | | | | [address] | | | | | | [phone] | | | | | | | [...] child. Followed by Dr. Katy berrios at [facility] in [place], [place]. Has been on a stable regimen for [...] agreeable with our plans. Clifton Childers MD Foreign Language Interpreter Division of Hospital Medicine Teaching Attending I [...] child. Followed by Dr. Katy berrios at [facility] in [place], [place], has been on a stable regimen [...] and plan. Lolita Ma MD, MPH Pager #[phone] PGY-1, Anesthesiology [facility] Associated attestation - Clifton Childers [...] agreeable with our plans. Clifton Childers MD Foreign Language Interpreter Division of [facility] Medicine Teaching Attending I spent 45 [...] child. Followed by Dr. Katy berrios at [facility] in [place], [place], has been on a stable regimen for [...] and plan. Lolita Ma MD, MPH Pager #[phone] PGY-1, Anesthesiology [facility] Associated attestation - Clifton Childers MD - 10/23/2015 4:10 PM PSTGeneral Medicine Attending Progress Note Author: Clifton Childers MD Hospital Day # 2 PCP: BJORN Villalpando I personally interviewed the patient, performed the bocanegra elements of the physical examinatio n, and personally formulated the assessment and plan with Dr Moreau and Dr Ma. Please s [facility] progress note for additional details; notable exceptions [...] agreeable with our plans. Clifton Childers MD Foreign Language Interpreter Division of Hospital Medicine Teaching Attending I [...] coping mechanism Heme/Lymphatic: negative Endocrine: negative Medical Numerical Control Operator: negative Past Medical History: History of chronic [...] he r CRPS in the pastm [facility] pharmacy does not carry this so we are trying to arrange for her to take her home medication via pharmacy approval 5. APS will sign off but please call with questions/concerns Aab Dorman MD, PGY 3 Utilization Management Rn [place]-2 APS Pager: [phone] BILLING INFORMATION Deferred to attending physician. Ms. [...] up at this point. Please contact APS (#[phone]) if further assistance is needed. Ulices Lopez MD BILLING INFORMATION [facility] DEPARTMENT: [phone] Place of Service:- Inpatient Date of Service: 10/23/2015 CSN: [id number] Suggested Modifier: GC - Resident Involved Suggested CPT: 25207 - Follow up visit (includes PNB) - [...] recd call from Dr. Madrid from [facility]. She has known pt for many yea rs and suggested ketamine and propofol gtt. Updated her on APS recommendations. She will hav e her office fax her clinic records to us. Pt was seen with Dr. Childers. Milton Moreau MD PGY-3, Internal Medicine Pager [phone] ozora, Pro edwards RN - 10/22/2015 10:06 AM PSTActing as scribe for the UR Committee Physician named below. The primary medical team for this patient and the [facility] UR Committee have agreed after furth er study that an inpatient admission was not medically necessary. This hospital stay is con verted to an outpatient stay through use of Medicare Condition Code 44. The patient was not ified of this change in writing. The providers involved in this decision were: For patient s primary medical team: Melissa Childers MD For [facility] UR Committee: Kerry HARRIS RN CM [...] | | | LABORATORY | | | GHANAIAN | | | SERVICES, | | | [...] | + + + + + | [facility] | [address] | [place] [address] | | | SERVICES, LILLIAN | GUILLERMO [...] + + + + + | [facility] | [address] | [place] [address] | | | SERVICES, CORE | GUILLERMO [...] | | | LABORATORY | | | GHANAIAN | | | SERVICES, | | | [...] the MDRD equation recommended by the | [facility] | | National Kidney Disease Education Program. [...] + + + + + | [facility] | [address] | [place] [address] | | | SERVICES, CORE | GUILLERMO [...] [facility] | [address] | [place] [address] | | | SERVICES, CORE | PARK [...] [facility] | [address] | [place] [address] | | | SERVICES, CORE | PARK [...] ranges for full anticoagulation: INR for | [facility] | | Venous Thromboembolism (2.0 - 3.0) INR INR | LABORATORY | | for most patients with mech. valves (2.5 - 3.5) INR | LILLIAN CROSS | + + + + + + + + | Performing | Address | City/State/Zipcode | Phone Number | | Organization | | | | + + + + + | [facility] | [address] | [place] [address] | | | SERVICESLILLIAN | [address] [...] [facility] | [address] | [place] [address] | | | SERVICES, CORE | GUILLERMO [...] | | | LABORATORY | | | GHANAIAN | | | SERVICES, | | | [...] + + + + + | [facility] | [address] | [place] [address] | | | L[place] CROSS | GUILLERMO [...] | | | | | 1 dose, [facility] 10/23/15 at 1245 | | PM PST | | | | + +-------+ +-------+---+---+ +---+---+ | | | +---+---+ + +-------+ +--------+---+---+ | ibuprofen (MOTRIN) tablet 600 | Given | 10/25/20 | 600 mg | | | | mg 600 mg, oral, EVERY 6 HOURS, | | 15 8:05 | | | | | First dose on [facility] 10/23/15 at | | AM PST [...] | | | | | 1 dose, [facility] 10/23/15 at 1245 | | PM [...]
--- OUTSIDE RECORDS SUMMARY | ~2019-08-12 | XMS | Encounter Summary ---
Demographics + + + | Address | [address] | | | [place] [address] | + + + | Home Phone [...] + +------+ + | Care Auto Damage Estimator Name | Role | Phone | + +------+ + | Justo Vazquez MD | PCP | | + +------+ + Encounter Details +--------+ + + + + | Date | Type | Department | Care Team | Description | +--------+ + + + + | 04/23/ | Anesthesia | Pain Center at [facility] | Aleta Rebollar MD [address] | | | 2019 | Event | 15 [address] | [address] | | | | | [place] Mailcode: | [place], [place] | | | | | [address] for | [address] | | | | | Health and Healing, | [phone] | | | | | | | | | | | Floor [place], [place] | | | | | | [address] | | | | | | [phone] | | | +--------+ + + + [...]
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
--- OUTSIDE RECORDS SUMMARY | ~2019-08-12 | XMS | Encounter Summary ---
Demographics + + + | Address | [address] | | | [place] [address] | + + + | Home Phone [...] Providers + +------+ + | Care School Psychology Specialist Name | Role | Phone | + +------+ + | Justo Vazquez MD | PCP | | + +------+ + Encounter Details +--------+ + + + + | Date | Type | Department | Care Team | Description | +--------+ + + + + | 01/11/ | Procedure | Diagnostic Imaging | | | | 2016 | Pass | Services at [facility] | | | | | | [address] | | | | | | [place] Mailcode: | | | | | | [address] | | | | | | [facility] | | | | | | [place], [place] | | | | | | [address] | | | | | | [phone] | | | +--------+ + + + [...]
--- OUTSIDE RECORDS SUMMARY | ~2019-08-12 | XMS | Encounter Summary ---
Demographics + + + | Address | [address] | | | [place] [address] | + + + | Home Phone [...] Providers + +------+ + | Care Social Media Campaign Manager Name | Role | Phone | [...] with nausea | [address] [place], | | | | | Complex | Rd | [place] | | | | | regional | [place], [place] | [address] | | | | | pain | [address] | Phone: | | | | | syndrome | Phone: | [phone] | | | | | type 1 of | [phone] | Fax: | | | | | left lower | Fax: | [phone] | | | | | extremity | [phone] | | | | | | Procedures [...] | | | | unspecified | [address] | [address] | | | | | location | Rd | [facility] | | | | | Procedures | [place], [place] | Rd [place], | | | | | CONSULT TO | [address] | [place] | | | | | PAIN | Phone: | [phone] | | | | | MANAGEMENT | [phone] | Phone: | | | | | | Fax: | [phone] | | | | | | [phone] | Fax: | | | | | | | [phone] | +--------+--------+ + + + + Encounter Details +--------+---------+ + + + | Date | Type | Department | Care Team | Description | +--------+---------+ + + + | 04/19/ | Office | [facility] Comprehensive | Alex Sanchez, | Intractable cyclical | | 2018 | Visit | Pain Center at | ,PhD [address] | vomiting with | | | | [facility] | [facility] [address] | nausea (Primary Dx); | | | | [address] | [place], [place] | Complex regional | | | | Mailcode: CH15 | [address] | pain syndrome type 1 | | | | [place] for [facility] | [phone] | of left lower | | | | and Healing, | | extremity | | | | Building | | | | | | Floor [facility] [place] | | | | | | [address] | | | | | | [phone] | | | +--------+---------+ + + + [...] might be differe nt from the original. [facility] Return Visit Date: 04/20/2018 Chief Complaint Patient presents with Abdominal pain Back pain Pain in left leg History of Present Illness: Tracie Farah is a 27 year old female, whose last appoi ntment at the [facility] [place] was 12/27/2017, for a procedure (popliteal nerve [...] not help for the abdominal pain). 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, Surgeon: Janak Riojas MD Cholecystectomy Appendectomy Other [...] History Social History Narrative Single. Goes to [employer] with a light load. Has been working at [employer], can' t work on [employer]. Has roommates. Allergies Allergen Reactions Morphine Anaphylaxis [...] by physician. Concentration is 150mg/mL. Compounded by [employer] ) KETOROLAC IM Inject into the muscle [...] GRAM-5.86 GRAM SOLUTION Take as directed by [facility] Digestive Health- 2 gallon bowel [...] to her by Christie Madrid MD in [place], [place]. As she chowdhury s since left the practice, Ms. Farah no longer has a prescriber for this medication. At [facility], we typically do [...] unclear etiology. She presents to the ER [facility], and is greatly helped by Toradol, [...] Follow up as needed Alex Sanchez MD,PhD [facility] 3 :41 PM Дмитрий, Charline Torres MA - 04/19/2018 1:00 PM PDTCMA History: [...]
--- OUTSIDE RECORDS SUMMARY | ~2019-08-12 | XMS | Encounter Summary ---
Demographics + + + | Address | [address] | | | [place] [address] | + + + | Home Phone [...] Team Providers + +------+ + | Care Watermelon Inspector Name | Role | Phone | [...] | | Management | Complex | [address] [place] | D, [address] | | | | | regional | [address] | | | | | pain | [address] | [place], [place] | | | | | syndrome | [place] | [address] | | | | | type 1 of | [address] | Phone: | | | | | left lower | Phone: | [phone] | | | | | extremity | [phone] | Fax: | | | | | Midline low | Fax: | [phone] | | | | | back pain | [phone] | | | | | | without [...] Ave | | | | | | [facility] [place] | [place], [place] | | | | | | [address] | [address] | | | | | | Phone: | Phone: | | | | | | [phone] | [phone] | | | | | | Fax: | Fax: | | | | | | [phone] | [phone] | + +---------+ + + + + Encounter Details +--------+---------+ + + + | Date | Type | Department | Care Team | Description | +--------+---------+ + + + | 07/04/ | Office | [facility] Comprehensive | Lane Reyes, | Complex regional | | 2019 | Visit | Pain Center at | [place] [address] | pain syndrome type 1 | | | | [facility] | [place], [place] | of left lower | | | | [address] | [address] | extremity (Primary | | | | Mailcode: CH15P | [phone] | Dx); Midline low | | | | [facility] | | back pain without | | | | and Healing, | | sciatica, | | | | | | unspecified | | | | Floor [place], [place] | | chronicity; | | | | [address] | | Sacroiliac pain; | | | | [phone] | | Sacral dysfunction; | | | [...] 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 Goes to [employer] with a light load. 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 Has roommates. Allergies Allergen Reactions Morphine Anaphylaxis [...] GRAM-5.86 GRAM SOLUTION Take as directed by [facility] Digestive Health- 2 gallon bowel prep POLYETHYLENE GLYCOL 3350 17 GRAM/DOSE ORAL POWDER Take 17 g by mouth once daily. PROMETHAZINE 12.5 MG TABLET Take 1 tablet by mouth four times daily as needed for nausea/vo miting. SUCRALFATE 1 GRAM TABLET Take 1 g by mouth four times daily. Radiology/Diagnostic Tests: X-RAY SPINE CERV 4 VIEWS Order: [id number] Performed: 06/12/2018 11:40 Status: Final result Visible [...] that the treatment performed by the chiropractic customer operations intern, Niesha Reveles, was directly observed by myself the primary chiropractor Lane Reyes [place] Visit Diagnoses: ICD-10-CM 1. Complex regional pain syndrome type 1 of left lower extremity G90.522 CONSULT TO PAIN [facility] 2. Midline low back pain without sciatica, unspecified chronicity M54.5 CONSULT TO PAIN GYPSUM AGEMENT 3. Sacroiliac pain M53.3 CONSULT TO PAIN MANAGEMENT [place] [facility] MANIP,SPINAL,1-2 REGIONS 4. Sacral dysfunction M53.3 [place] [facility] MANIP,SPINAL,1-2 REGIONS 5. Somatic dysfunction of pelvis region M99.05 [place] [facility] MANIP,SPINAL,1-2 REGIONS 6. Somatic dysfunction of sacral region M99.04 [place] [facility] MANIP,SPINAL,1-2 REGIONS Impression: Tracie Farah is [...] verified the above note written by Chiropractic customer operations intern of our visit wit h this patient as recorded by Lane Reyes DC [facility] AT [address] Mail Code: Ch15p [place] [address] documented in this e ncounter Plan of Treatment Not on filedocumented as of this encounter Procedures + +--------+ + + + | Procedure Name | Priori | Date/Time | Associated Diagnosis | Comments | | | ty | | | | + +--------+ + + + | [place] [facility] | Routin | 07/10/2019 | Sacroiliac [...]
--- OUTSIDE RECORDS SUMMARY | ~2019-08-12 | XMS | Encounter Summary ---
Demographics + + + | Address | [address] | | | [place] [address] | + + + | Home Phone [...] Team Providers + +------+ + | Care Skein Drier Name | Role | Phone | [...] + + | 02/21/ | Telephone | [facility] | Alex Sanchez, | Medication Refill | | 2017 | | Pain Center at | ,PhD [address] | Request (ketamine- | | | | [facility] | [address] | mail script to | | | | [address] | [place], [place] | patient) | | | | Mailcode: 15 | [address] | | | | | [facility] | [phone] | | | | | and Martina, | | | | | | | | | | | | Floor [place], [place] | | | | | | [address] | | | | | | [phone] | | | +--------+ + + + [...]
--- OUTSIDE RECORDS SUMMARY | ~2019-08-12 | XMS | Encounter Summary ---
Demographics + + + | Address | [address] | | | [place] [address] | + + + | Home Phone [...] Team Providers + +------+ + | Care Mcat Tutor Name | Role | Phone | [...] Rd | | | | | | [place], [place] | | | | | | [address] | | | +--------+ + + + [...]
--- OUTSIDE RECORDS SUMMARY | ~2019-08-12 | XMS | Encounter Summary ---
Demographics + + + | Address | [address] | | | [place] [address] | + + + | Home Phone [...] Team Providers + +------+ + | Care Geospatial Information Scientist Name | Role | Phone | + +------+ + | Justo Vazquez MD | PCP | | + +------+ + Encounter Details +--------+ + + + + | Date | Type | Department | Care Team | Description | +--------+ + + + + | 03/12/ | Physician Relations Representative | [facility] Comprehensive | Alex Sanchez, | Complex regional | | 2019 | | Pain Center at | ,PhD [address] [facility] | pain syndrome type 1 | | | | [facility] | [address] | of left lower | | | | [address] | [place], [place] | extremity; S/P | | | | Mailcode: CH15P | [phone] | insertion of spinal | | | | Center for [facility] | [phone] | cord stimulator | | | | and Healing, | | | | | | Building | | | | | | Floor [place], [place] | | | | | | [address] | | | | | | [phone] | | | +--------+ + + + [...]
--- OUTSIDE RECORDS SUMMARY | ~2019-08-12 | XMS | Encounter Summary ---
Demographics + + + | Address | [address] | | | [place] [address] | + + + | Home Phone [...] Team Providers + +------+ + | Care Integrity Assessor Name | Role | Phone | [...] 2015 | | Center at [facility] [address] | Treatment Planning | | | | [address] | | | | | | Mailcode: Center | | | | | | for Health and | | | | | | [facility] | | | | | | [place], [place] | | | | | | [address] | | | | | | [phone] | | | +--------+ + + + [...]
--- OUTSIDE RECORDS SUMMARY | ~2019-08-12 | XMS | Encounter Summary ---
Demographics + + + | Address | [address] | | | [place] [address] | + + + | Home Phone [...] Team Providers + +------+ + | Care Compatibility Test Engineer Name | Role | Phone | [...] | | Pain Center at | [address] [facility] | | | | | [facility] | [id number] | | | | | [address] | [place], [place] | | | | | Mailcode: CH15P | [phone] | | | | | [facility] | [phone] | | | | | and Healing, | | | | | | [facility] | | | | | | [place], [place] | | | | | | [address] | | | | | | [phone] | | | +--------+ + + + [...]
--- OUTSIDE RECORDS SUMMARY | ~2019-08-12 | XMS | Encounter Summary ---
Demographics + + + | Address | [address] | | | [place] [address] | + + + | Home Phone [...] Team Providers + +------+ + | Care Ingot Caster Name | Role | Phone | + +------+ + | Justo Vazquez MD | PCP | | + +------+ + Encounter Details +--------+ + + + + | Date | Type | Department | Care Team | Description | +--------+ + + + + | 12/27/ | Ancillary | [facility] | Alex Sanchez, | | | 2018 | Orders | Pain Center at | ,PhD [address] | | | | | [facility] | [facility] | | | | | [address] | [place], [place] | | | | | Mailcode: CH15P | [address] | | | | | [facility] | [phone] | | | | | and Healing, | | | | | | | | | | | | Floor [place], [place] | | | | | | [address] | | | | | | [phone] | | | +--------+ + + + [...]
--- OUTSIDE RECORDS SUMMARY | ~2019-08-12 | XMS | Encounter Summary ---
Demographics + + + | Address | [address] | | | [place] [address] | + + + | Home Phone [...] | [address] | Giuliana Maldonado [place], | | | | | [address] | [place] [address] | | | | | Joel Mailcode: [id number] | [phone] | | | | | Liane Cai | | | | | | [address] [place], [place] | | | | | | [address] | | | | | | [phone] | | | +--------+ + + + [...]
--- OUTSIDE RECORDS SUMMARY | ~2019-08-12 | XMS | Encounter Summary ---
Demographics + + + | Address | [address] | | | [place] [address] | + + + | Home Phone [...] + +------+ + | Care Director Of Business Development Name | Role | [...] Rd | | | | | | [place], [place] | | | | | | [address] | | | +--------+ + + + [...]
--- OUTSIDE RECORDS SUMMARY | ~2019-08-12 | XMS | Encounter Summary ---
Demographics + + + | Address | [address] | | | [place] [address] | + + + | Home Phone [...] + +------+ + | Care Director Of Medical Education Name | Role | Phone | [...] + + | 06/22/ | Telephone | [facility] | Ilene Bright, | Returning Phone Call | | 2017 | | Pain Center at | CORPORATE FINANCIAL ANALYST [address] | | | | | [facility] | Ave [place], [place] | | | | | [address] | [address] | | | | | Mailcode: CH15P | [phone] | | | | | [facility] | | | | | | and Healing, | | | | | | Building | | | | | | Floor [place], [place] | | | | | | [address] | | | | | | [phone] | | | +--------+ + + + [...]
--- OUTSIDE RECORDS SUMMARY | ~2019-08-12 | XMS | Encounter Summary ---
Demographics + + + | Address | [address] | | | [place] [address] | + + + | Home Phone [...] Team Providers + +------+ + | Care Surveying Crew Rodman Name | Role | Phone | + [...] pain, | [address] | ,PhD [address] | | | | | unspecified | [facility] | [address] | | | | | location | Rd | [facility] | | | | | Procedures | [place], [place] | Rd [place], | | | | | CONSULT TO | [address] | [place] | | | | | PAIN | Phone: | [address] | | | | | MANAGEMENT | [phone] | Phone: | | | | | | Fax: | [phone] | | | | | | [phone] | Fax: | | | | | | | [phone] | +--------+--------+ + + + + Encounter Details +--------+---------+ + + + | Date | Type | Department | Care Team | Description | +--------+---------+ + + + | 05/08/ | Office | [facility] | Alex Sanchez, | Complex regional | | 2018 | Visit | Pain Center at | ,PhD [address] | pain syndrome type 1 | | | | [place] | [address] | of left lower | | | | [address] | [place], [place] | extremity (Primary | | | | Mailcode: CH15P | [phone] | Dx); Pain of upper | | | | [facility] | [phone] | abdomen; Intractable | | | | and Healing, | | cyclical vomiting | | | | Building [address] | | with nausea; | | | | Floor [place], [place] | | Disturbance in sleep | | | | [address] | | behavior; 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 [...] MD,P hD - 05/08/2018 10:30 AM PDT [facility] Return Visit Date: 05/08/2018 Chief Complaint Patient presents with Ankle pain Left Foot pain Left History of Present Illness: Tracie Farah is a 27 year old female, whose last appoi ntment at the [facility] [...] time that 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 LEAD RECREATION ASSISTANT Brief Pain Inventory: (ten= worst possible [...] Trial spinal cord stimulator leads 08/02/2012 . [facility], Surgeon: Janak Riojas [...] History Social History Narrative Single. Goes to [employer] with a light load. Has been working at [employer], can' t work on [employer]. Has roommates. Allergies Allergen Reactions Morphine [...] by physician. Concentration is 150mg/mL. Compounded by [employer] ) KETOROLAC IM Inject into the muscle [...] and summary of old medical records (source: [employer]), as summarized in the body of the [...] by Sonia Key. Alex Sanchez MD PhD Diamond Grader Anesthesiology and Pain Management [facility] documented in this encounter Plan of Treatment [...]
--- OUTSIDE RECORDS SUMMARY | ~2019-08-12 | XMS | Encounter Summary ---
Demographics + + + | Address | [address] | | | [place] [address] | + + + | Home Phone [...] Providers + +------+ + | Care Car Supervisor Name | Role | Phone | [...] Rd | | | | | | [place], [place] | | | | | | [address] | | | +--------+ + + + [...]
--- OUTSIDE RECORDS SUMMARY | ~2019-08-12 | XMS | Encounter Summary ---
Demographics + + + | Address | [address] | | | [place] [address] | + + + | Home Phone [...] Providers + +------+ + | Care Manager Of Financial Planning Name | Role | Phone | + [...] | | | regional | [place] | [address] | | | | | pain | FAMILY | [address]stop | | | | | syndrome), | MEDICINE P | [address] | | | | | lower limb | [address] | [place], [place] | | | | | Pain in | [place], | [address] | | | | | joint, lower | [place] [address] | Phone: | | | | | leg | Phone: | [phone] | | | | | Procedures | [phone] | Fax: | | | | | REQUEST TO | Fax: | [phone] | | | | | SURGERY | [phone] | | | | | | ACCOUNT OFFICER | | | +--------+--------+ + + + + Encounter Details +--------+ + + + + | Date | Type | Department | Care Team | Description | +--------+ + + + + | 08/02/ | Procedure | Pain Center at [facility] | Dale Cantu, | Procedure; | | 2011 | | 15th Floor [address] | MD [address] | Injection; Procedure | | | | [address] Mailcode: | Mailstop [id number] | | | | | CH15P [facility] | [place], [place] | | | | | Health and Healing, | [address] | | | | | [facility] | [phone] | | | | | Floor [place], [place] | | | | | | [address] | | | | | | [phone] | | | +--------+ + + + [...] this encounter Patient Instructions Patient Instructions KristaBear marniquez, DO - 08/02/2012 6:34 AM PDTFormatting of this not e might be different from the original. [facility] Center Patient Instructions - Post Spinal Cord Stimulator Trial Date: 08/02/2012 Name: Tracie Farah Date of : 1990 Procedure Performed: SCS TRIAL LUMBAR [facility] Procedure Provider: Dale Cantu [facility] Procedure Rm If you have any problems you believe are associated with your procedure tonight, Please call the Hospital Sugar Cane Farm Manager, and ask for the Pain Management Consu ltant. If you have problems or questions between 9:00 am and 4:00 pm, Please call the [facility] Pain Center Nurse Triage Line, . If you go to an Emergency Room, please bring this form with you. DISCHARGE INSTRUCTIONS Call immediately and/or go to the Emergency department if any concerns about wound healing, fever, or chills. Also call for concerns about SCS function. During [facility] open hours, call the [facility] ([phone]), after hours call the extractor operator solvent process at [facility] ([phone]) and ask for t Adult Pain Service client resolution specialist. Identify yourself as a Comprehensive Pain Center [...] the wounds, dressing, or SCS function. During FOUNDRY TENDER o pen hours, call the FOUNDRY TENDER ([phone]), after hours call the extractor operator solvent process at [facility] ([phone] ) and ask for the Adult Pain Service client resolution specialist. Identify yourself as my patient with a concer n about postoperative recovery. If there are concerns about the SCS programming, contact t he technology sales representative from the SCS client resolution specialist. If the stimulation is not covering your area o f pain, your SCS should be reprogrammed. Do not take any blood thinning medications during the trial. Instructions printed and reviewed with the patient. Copy of instructions given to Pj Nemo víctor. DALE CANTU MD [facility] documented in this encounter [...] and postoperative care instructions. DALE CANTU MD Shop Tailor, [facility] Center Interventional Technologist, Pain Medicine Professor, Anesthesiology & Perioperative Medicine Diana Arroyo RN - 08/02/2012 7:34 AM PDT PRE-SEDATION: Date: August 02, 2012 Tracie Farah [id number] 1990 ALLERGIES: Morphine Previous reaction to Sedation/Analgesia: MEDICATIONS: Current Outpatient Prescriptions Medication HYDROcodone-acetaminophen (NORCO) 10-325 mg Oral Tablet KETOROLAC TROMETHAMINE (TORADOL IM) levonorgestrel (MIRENA) 20 mcg/24 hr Intrauterine IUD LORazepam 1 mg Oral Tablet ondansetron (ZOFRAN) 8 mg Oral Tablet promethazine 25 mg Oral Tablet Meets NPO Guidelines. IV ACCESS: IV in Place IV Site [facility] 22 g @ 0655 BASELINE VS: See Sedation Flow Sheet. Tracie Donaldson [facility] [id number] 1990, presents to clinic for: Procedure: Spinal [...] 0732 - 0733: Midazolam 2 [place] [address]: Fentanyl 25 mcg IV 0740 - 0741: Midazolam 2 mg IV 0742: Procedure started 0743 - 0744: Fentanyl 50 mcg IV 0753-54: Fentanyl 25 mcg IV Lead # 1 placed Lead # 2 placed 0801: Stimulation started. 0829: Pt reports stimulation to usual areas of pain. Leads secured. 0845: [facility] returned to [facility] [place] in stable condition. IV dc'd. IssaEvelia - [...] OPERATIVE NOTE Date: August 02, 2012 Location: [facility] Procedure Room Tracie Farah [id number] :1990, presents to clinic for: PROCEDURE: Spinal Cord Stimuation Trial LEVEL/LATERALITY: midline lumbar PRE-OPERATIVE DIAGNOSIS: 355.71B CRPS (complex regional pain syndrome), lower limb 719.46 Pain in joint, lower leg 781.2Q Gait disturbance POST-OPERATIVE DIAGNOSIS: 355.71B CRPS (complex regional pain syndrome), lower limb 719.46 Pain in joint, lower leg 781.2Q Gait disturbance ATTENDING PHYSICIAN: Dale Cantu MD MINE INSPECTOR: Fellow Bear Yost DO ANESTHESIA: sedation delivered [...] sedation. Ms. Farah was escorted to the [facility] Procedure Ro om, where she was positioned Prone on the examination table. TEAM PAUSE: The physician-led pause was conducted, and is documented in the Nursing note. Monitors were placed, including ECG, NIBP and SpO2. The skin was prepared with Chloroprep and sterile drapes were applied. St. Move In History system was used for this procedure. The company technology sales representative was theresa knutson for the procedure. [...] pain. Ms. Farah was transported to the [facility] Comprehensive Pain Center post-procedure recovery area where she made an uneventful recovery. Images were saved, and sent to [employer]. Ms. Farah will have her next appointment [...] about wound healing or SCS function. During [facility] open hours, call the [facility] ([phone]), after h ours call the extractor operator solvent process at [facility] ([phone]) and ask for the Adult Pain Service client resolution specialist. Identify yourself as my patient with a [...] + +--------+ + + + | SD PERCUT IMPLNT | Routin | 08/03/2012 | [...]
--- OUTSIDE RECORDS SUMMARY | ~2019-08-12 | XMS | Encounter Summary ---
Demographics + + + | Address | [address] | | | [place] [address] | + + + | Home Phone [...] Team Providers + +------+ + | Care Quantitative Developer Name | Role | Phone | [...] | | | | | Procedures | [place], [place] | | | | | | MR | [id number] | | | | | | ENTEROGRAPHY | Phone: | | | | | | ABDOMEN AND | [phone] | | | | | | PELVIS WWO | Fax: | | | | | | CONTRAST | [phone] | | +--------+--------+ + + + + [...] | | | | | Procedures | [place], [place] | | | | | | MR | [id number] | | | | | | ENTEROGRAPHY | Phone: | | | | | | ABDOMEN AND | [phone] | | | | | | PELVIS WWO | Fax: | | | | | | CONTRAST | [phone] | | +--------+--------+ + + + + [...] | | | | | Procedures | [place], [place] | | | | | | MR | [id number] | | | | | | ENTEROGRAPHY | Phone: | | | | | | ABDOMEN AND | [phone] | | | | | | PELVIS WWO | Fax: | | | | | | CONTRAST | [phone] | | +--------+--------+ + + + + Encounter Details +--------+ + + + + | Date | Type | Department | Care Team | Description | +--------+ + + + + | 01/31/ | Hospital | Diagnostic Imaging | Celia Lin MD | | | 2017 | Encounter | Services at [facility] | [address] | | | | | [address] | [place], [place] | | | | | Giuliana Maldonado Mailcode: | [address] | | | | | [address] | [phone] | | | | | [facility] | | | | | | [place], [place] | | | | | | [address] | | | | | | [phone] | | | +--------+ + + + [...]
--- OUTSIDE RECORDS SUMMARY | ~2019-08-12 | XMS | Encounter Summary ---
Demographics + + + | Address | [address] | | | [place] [address] | + + + | Home Phone [...] Team Providers + +------+ + | Care Debubblizer Name | Role | Phone | + [...] | | | | | extremity | [address] | [address] | | | | | Procedures | Phone: | Phone: | | | | | REQUEST TO | [phone] | [phone] | | | | | SURGERY | Fax: | Fax: | | | | | FILM MASKER | [phone] | [phone] | +--------+---------+ + + + + Encounter Details +--------+---------+ + + + | Date | Type | Department | Care Team | Description | +--------+---------+ + + + | 09/28/ | Office | [facility] Comprehensive | Yun Frey, TRAINING MGR | Complex regional | | 2018 | Visit | Pain Center at | [address] | pain syndrome type 1 | | | | [facility] | [place], [place] | of left lower | | | | [address] | [address] | extremity (Primary | | | | Mailcode: CH15P | [phone] | Dx); Arthralgia of | | | | [place] for [facility] | | left lower leg | | | | and Healing, | | | | | | | | | | | | Floor [place], [place] | | | | | | [address] | | | | | | [phone] | | | +--------+---------+ + + + [...] PM PST September 28, [id number] [facility] Comprehensive Pain Center Return Visit Chief [...] and a pain drawing which I reviewed. [facility] Questionnaire Follow-up Patient 10/10/2017 Please [...] DRG Spinal Cord Stimuation Trial with [employer] system LEVEL/LATERALITY: left L4, L5. Till date, [...] turned up to 7%. After seeing th financial service representative today and killian ing adjustments, she was able to tolerate the stimulation being turned up to 31%. Tracie is doing well after the procedure and does not complain of any side effects except fo r excruciating back pain which she expected. Tracei also notes some numbness in her right [...] Hemroidectomy Trial spinal cord stimulator leads 08/02/2012 [facility], Surgeon: Janak Riojas MD Cholecystectomy Appendectomy [...] the vein (IV) every eight hour s. 8800-7168-43 COMPOUNDED MED RX CONTROLLED (SEE ADMIN INSTRUCT [...] by physician. Concentration is 150mg/mL. Compounded by [employer] ) KETOROLAC IM Inject into the muscle [...] (IV) every twel ve hours as needed. 5159-0081-90 ONDANSETRON 4 MG DISINTEGRATING TABLET Dissolve 1 tablet in mouth every twelve hours as nee ded. PANTOPRAZOLE 40 MG TABLET,DELAYED RELEASE Take 40 mg by mouth once daily. PEG 3350-ELECTROLYTES 236 GRAM-22.74 GRAM-6.74 GRAM-5.86 GRAM SOLUTION Take as directed by [facility] Digestive Health- 2 gallon bowel prep [...] been given programming opti ons by the [employer]'s device financial service representative, Michele. At this time, there is no complication from the DRG trial. Recommendations/Plan: 1. Recommend to keep her appointment with Dr. Sanchez on 10/02/2018. 2. To contact the [employer]'s rep if she has any further question on programming. 09/28/2018: I, Dayana Ivan, am functioning as a electromedical service engineer for Yun Frey NP. I have reviewed and verified the above scribed note of my visit with this patient as record ed by Ms. Dayana Ivan. Jeanine Frey (Mr.) MSN, ACNP- Nurse Practitioner Acute Pain Service /[facility] [address] [place] [id number] documented in this enco unter Plan of [...]
--- OUTSIDE RECORDS SUMMARY | ~2019-08-12 | XMS | Encounter Summary ---
Demographics + + + | Address | [address] | | | [place] [address] | + + + | Home Phone [...] Providers + +------+ + | Care Nuclear Medicine Specialist Name | Role | Phone [...] | | | sympathetic | [place] | [address]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 | FAMILY | Mailstop | | | | | of lower | MEDICINE P | [id number] | | | | | limb | [address] | [place], [place] | | | | | | [place], | [address] | | | | | | [place] [address] | Phone: | | | | | | Phone: | [phone] | | | | | | [phone] | Fax: | | | | | | Fax: | [phone] | | | | | | [phone] | | +--------+--------+ + + + + Encounter Details +--------+---------+ + + + | Date | Type | Department | Care Team | Description | +--------+---------+ + + + | 03/17/ | Office | [facility] Comprehensive | Dale Cantu, | CRPS (complex | | 2011 | Visit | Pain Center at | [address] | regional pain | | | | [place] | [address] [id number] | syndrome), lower | | | | [address] | [place], [place] | limb; Adjustment | | | | Mailcode: CH15 | [address] | reaction; Muscle | | | | [facility] | [phone] | pain; Gait | | | | and Healing, | | disturbance | | | | Building | | | | | | Floor [place], [place] | | | | | | [address] | | | | | | [phone] | | | +--------+---------+ + + + [...] Pain: After Your Visit", log into your [employer] nt at [email or web address]. You can enter G828 in the [employer] Library" search box. Not on GoodDatahart? Review the MyChart section of your After Visit Summary for directions on liz rea to sign up. [phone] [employer]. Care instructions adapted under license by [facility] [place]. This care instruction is for use with your licensed healthcar e professional. If you have questions about a medical condition or this instruction, always ask your healthcare professional. [employer] disclaims any warranty or liabili ty for your use of this information. Content Version: 9.2.115645; Last Revised: April 29, 2011 Nortriptyline for [...] Pain: After Your Visit", log into your [employer] nt at [email or web address]. You can enter G828 in the [employer] Library" search box. Not on LiveBid? Review the GoodDatahart section of your After Visit Summary for directions on ho w to sign up. [phone] [employer]. Care instructions adapted under license by [facility] [employer] [place]. This care instruction is for use with your licensed healthcar e professional. If you have questions about a medical condition or this instruction, always ask your healthcare professional. [employer] disclaims any warranty or liabili ty for your use of this information. Content Version: 9.2.213133; Last Revised: April 29, 2011 documented in this encounter Progress Notes Dale Cantu MD - 03/17/2012 4:21 PM PDTI saw and evaluated the patient with Resident : Marquis Elaine MD, who conducted the initial history. I reviewed the history in detail a nd edited his note. I was present for the examination and formulation portions of the [facility]. I agree with the findings and the plan of care as documented in our notes. DALE CANTU MD Plan Consultant, [facility] Distribution Center Supervisor, Pain Medicine Professor, Anesthesiology & Perioperative Medicine NAMollMarquis manriquez MD - 03/17/2012 3:42 PM PDT [facility] Comprehensive Pain Center Return Visit with Dr. Dale Cantu 03/17/2012 Tarcie Farah; ; : 1990 Chief Complaint Patient [...] her pain. She continues to take 6-8 [place] per day and 600 mg of ibuprofen [...] a pain drawing which I reviewed. [facility] Brief Pain Inventory: (ten= worst possible [...] The Review of Systems obtained by the [facility] was reviewed. Additional Review of Systems: [...] you require any medication refills today? 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 Bones, Joints, and Muscles: cramps [...]
--- OUTSIDE RECORDS SUMMARY | ~2019-08-12 | XMS | Encounter Summary ---
Demographics + + + | Address | [address] | | | [place] [address] | + + + | Home Phone [...] Providers + +------+ + | Care Sales Support Associate Name | Role | Phone [...] | | | | | syndrome | [place] | [facility] | | | | | type 1 of | Rd | Rd [place], | | | | | left lower | [place], [place] | [place] | | | | | extremity | [address] | [address] | | | | | Procedures | Phone: | Phone: | | | | | REQUEST TO | [phone] | [phone] | | | | | SURGERY | Fax: | Fax: | | | | | JOB PRINTER APPRENTICE | [phone] | [phone] | +--------+---------+ + + + + Encounter Details +--------+ + + + + | Date | Type | Department | Care Team | Description | +--------+ + + + + | 12/ | Procedure | Pain Center at [facility] | Alex Sanchez, | Foot pain; Knee | | 2017 | | 15[address] ,PhD [address] | pain; Procedure | | | | [address] Mailcode: | [facility] | | | | | CH15P [facility] | [place], [place] | | | | | Health and Healing, | [address] | | | | | [facility] | [phone] | | | | | Floor [place], [place] | | | | | | [address] | | | | | | [phone] | | | +--------+ + + + [...] Key - 09/25/2018 1:00 PM PST [facility] Patient Instructions - Post Interventional Procedure Date: 09/25/2018 Name: Tracie Farah Date of : 1990 Procedure Performed: SCS DRG TRIAL LUMBAR [facility] Procedure Provider: Alex Sanchez MD,PhD If you have any problems you believe are associated with your procedure tonight, Please call the Hospital Printed Circuit Board Drafter, and ask for the Pain Management Consu ltant. If you have problems or questions between 9:00 am and 4:00 pm, Please call the [facility] Pain Center Nurse Triage [...] symptoms, dressing, SCS function, or chills. During LAW ENFORCEMENT DIRECTOR open ho urs, call the LAW ENFORCEMENT DIRECTOR ([phone]), after hours call the pressure test operator at [facility] ([phone]) and ask for the Adult Pain Service manager enterprise content management. Identify yourself as a [facility] [...] to the pat ient. Aleta Rebollar MD [facility] Comprehensive [facility] Center Cwutsvykovpndj signed by Sonia Key at 09/25/2018 3:07 PM PST documented in this encounter Progress Notes Alex Sanchez MD,PhD - 09/25/2018 1:00 PM PSTI was present for the entire procedure ( DRG SCS trial) and all bocanegra elements of this visit. I reviewed the documentation of the othe r [facility] providers and concur with Dr. Rebollar's findings. I edited his note. Alex Sanchez MD,PhD Timber Grader Anesthesiology and Pain Management [facility] [place], Zain Hale RN - 09/25/2018 1:00 [...] by physician. Concentration is 150mg/mL. Compounded by [facility] ) KETOROLAC IM Inject into the [...] Take as directed by [facility] Digestive [facility]- 2 gallon bowel prep POLYETHYLENE GLYCOL [...] PRE-SEDATION: Date: September 25, 2018 Tracie Farah [id number] 1990 ALLERGIES: Morphine Previous reaction to Sedation/Analgesia: [...] NOTES: Date: September 25, 2018 Tracie Donaldson [facility] [id number] 1990 ALLERGIES: Morphine Previous reaction to Sedation/Analgesia: [...] VS: See Sedation Flow Sheet. Tracie Donaldson [facility] [id number] 1990, presents to clinic for: Procedure: bilateral [...] OPERATIVE NOTE Date: September 25, 2018 Location: [facility] Procedure Room Tracie Donaldson [facility] [id number] :1990, presents to clinic for: PROCEDURE: DRG Spinal Cord Stimuation Trial with St[employer] system LEVEL/LATERALITY: left L4, L5 PRE-OPERATIVE DIAGNOSIS: G90.522 Complex regional pain syndrome type 1 of left lower extremity POST-OPERATIVE DIAGNOSIS: G90.522 Complex regional pain syndrome type 1 of left lower extremity ATTENDING PHYSICIAN: Alex Sanchez MD,PhD MANAGER INTERNSHIP: Fellow Aleta Rebollar ANESTHESIA: Sedation delivered by [...] Ms. Farah was escorted to the [facility] Procedure R oom, where she was [...] patient. Ms. Farah was transported to the [facility] Comprehensive Pain Center post-procedure recovery area where she made an uneventful recovery. Programming was performed in the PACU with aid of the device telephone service representative and Ms. Susie faust was sent home with a few programs . This was a unilateral procedure. Alex Sanchez MD,PhD was present for the entire procedure. Images were saved, and sent to [employer]. Ms. Farah was transported to the [facility] [place] post-procedure recovery area. She had an uneventful recovery. Before the procedure, Ms. Farah's pain was 7/10. After the procedure Ms. Fraah's pain was 7/10. I, Sonia Key, am functioning as a scribe for Aleta Rebollar MD. I have reviewed and verified the above scribed note of my visit with this patient as record ed by Sonia Key. Aleta Rebollar MD [facility] 15TH FLOOR [address] Mail Code: [address] [place] [address] documented in t his encounter Plan of Treatment Not on filedocumented as of this encounter Procedures + +--------+ + + + | Procedure Name | Priori | Date/Time | Associated Diagnosis | Comments | | | ty | | | | + +--------+ + + + | NH MOD SEDATION | Routin | 09/25/2018 | Complex regional | | | >=5YRS SAME MD/QUAL | e | 7:31 PM | pain syndrome type 1 | | | PROV; INIT 15 MIN | | PST | of left lower | | | | | | extremity | | + +--------+ + + + | [place] PERCUT IMPLNT | Routin | 09/25/2018 | [...]
--- OUTSIDE RECORDS SUMMARY | ~2019-08-12 | XMS | Encounter Summary ---
Demographics + + + | Address | [address] | | | [place] [address] | + + + | Home Phone [...] Providers + +------+ + | Care Direct Support Professional Home Health Name | Role | Phone | + +------+ + | Justo Vazquez MD | PCP | | + +------+ + Encounter Details +--------+ + + + + | Date | Type | Department | Care Team | Description | +--------+ + + + + | 03/23/ | MyChart | [facility] Comprehensive | Ilene Brigth, | Welcome | | 2017 | Encounter | Pain Center at | BEEHIVE KILN SUPERVISOR [address] | | | | | [facility] | Ave [place], [place] | | | | | [address] | [address] | | | | | Mailcode: CH15P | [phone] | | | | | [facility] | | | | | | and Healing, | | | | | | | | | | | | [place], [place] | | | | | | [address] | | | | | | [phone] | | | +--------+ + + + [...]
--- OUTSIDE RECORDS SUMMARY | ~2019-08-12 | XMS | Encounter Summary ---
Demographics + + + | Address | [address] | | | [place] [address] | + + + | Home Phone [...] Team Providers + +------+ + | Care Caddy Name | Role | Phone | + +------+ + | Justo Vazquez MD | PCP | | + +------+ + Encounter Details +--------+ + + + + | Date | Type | Department | Care Team | Description | +--------+ + + + + | 06/04/ | Documentati | [facility] | Alex Sanchez, | | | 2019 | on | Pain Center at | ,PhD [address] | | | | | [facility] | [address] | | | | | [address] | [place], [place] | | | | | Mailcode: CH15P | [address] | | | | | [place] for [facility] | [phone] | | | | | and Healing, | | | | | | | | | | | | Floor [place], [place] | | | | | | [address] | | | | | | [phone] | | | +--------+ + + + [...]
--- OUTSIDE RECORDS SUMMARY | ~2019-08-12 | XMS | Encounter Summary ---
Demographics + + + | Address | [address] | | | [place] [address] | + + + | Home Phone [...] Team Providers + +------+ + | Care Hair Spinner Name | Role | Phone | [...] | | 2016 | | Center at [facility] [address] | MD Melissa | | | | | [address] | | | | | | Mailcode: Center | | | | | | for Health and | | | | | | Healing, Building [address] | | | | | | [place], [place] | | | | | | [address] | | | | | | [phone] | | | +--------+ + + + [...]
--- OUTSIDE RECORDS SUMMARY | ~2019-08-12 | XMS | Encounter Summary ---
Demographics + + + | Address | [address] | | | [place] [address] | + + + | Home Phone [...] Team Providers + +------+ + | Care Dairy Associate Name | Role | Phone | [...] | Diagnoses | Beulah | Edu Pt Oven Roaster | | | | Therapy | CRPS | Janak Martinez MD | [address] | | | | | (complex | [address] | | | | | regional | [address] | Mailcode: | | | | | pain | Mailstop | CH3P Center | | | | | syndrome), | [id number] | for Health | | | | | lower limb | [place], [place] | and Healing, | | | | | Gait | [address] | Building [address] | | | | | disturbance | Phone: | [place], [place] | | | | | Muscle pain | [phone] | [address] | | | | | Procedures | Fax: | Phone: | | | | | PHYSICAL | [phone] | [phone] | | | | | THERAPY | [...] | | | [place] | Ave [place], [place] | syndrome), lower | | | | [address] | [phone] | limb (Primary Dx) | | | | Mailcode: CH3P | | | | | | [facility] | | | | | | and Healing, | | | | | | Building [address] | | | | | | Floor [place], [place] | | | | | | [address] | | | | | | [phone] | | | +--------+---------+ + + + [...] might be different f rom the original. [id number] BRODY FARAH Date of : 1990 Start of care: 02/14/2012 Date of onset: 02/14/2012 Referring/Attending Practitioner: Janak Riojas MD . Primary/Referral Diagnosis/ICD-9: 355.71B CRPS (complex regional pain syndrome), lower limb Insurance: Payor: [facility] Plan: BCBS OUT OF STATE Product Type: PP O Service period from: 02/14/2012 to: 08/12/2012 Number visits used/authorized: 03/25 [facility] PHYSICAL [facility] PROGRESS NOTE SUBJECTIVE: Age: [...] in their status. Guillermo Sanon MSPT [facility] Mailcode: Ch3p [address] [facility], [address] [place] [address] documented in this encounter Plan of Treatment Not on filedocumented as of this encounter Procedures + +--------+ + + + | Procedure Name | Priori | Date/Time | Associated Diagnosis | Comments | | | ty | | | | + +--------+ + + + | AK MANUAL THER | Routin | 06/05/2012 | CRPS (complex | | | TECH,1+REGIONS,EA 15 | e | 5:15 PM | regional pain | | | MIN | | PDT | syndrome), lower | | | | | | limb | | + +--------+ + + + | AK THERAPEUTIC | Routin | 06/05/2012 | CRPS [...]
--- OUTSIDE RECORDS SUMMARY | ~2019-08-12 | XMS | Encounter Summary ---
Demographics + + + | Address | [address] | | | [place] [address] | + + + | Home Phone [...] Team Providers + +------+ + | Care Litigation Legal Secretary Name | Role | Phone | [...] | STAY [address] | ,PhD [address] | | | | | [address]ney Mailcode: [facility] | [address] | | | | | [facility] | [place], [place] | | | | | Health and [facility], | [address] | | | | | [place] [address] | [phone] | | | | | [place], [place] | | | | | | [address] | | | | | | [phone] | | | +--------+ + + + [...] s/p successful DRG trial lead system with [facility] on 09/25/2018. No changes in H&P, [...] OPERATIVE NOTE Date: December 05, 2018 Location: [facility] [place] | | | Tracie Farah [id number] :1990, presents to clinic | | | for: Dorsal root ganglion stimulator implant PROCEDURE: Dorsal | | | root ganglion stimulator implant PRE-OPERATIVE DIAGNOSIS: Complex | | | regional Pain syndrome type 1 of left lower extremity | | | POST-OPERATIVE DIAGNOSIS: Complex regional Pain syndrome type 1 of | | | left lower extremity ATTENDING PHYSICIAN: Alex Sanchez | | | WILLOW MACHINE TENDER: Arben Valerio MD ANESTHESIA: sedation by IVIS oCle | | | Carmen, supervised by convict guard Ilir Valdes. | | | FINDINGS: Appropriate [...] was | | | escorted to the [facility] [place], where she was positioned Prone on [...] recovery. Images were saved, and sent to [employer]. | | | Alex Sanchez (attending) was present for the entire procedure. | | | Arben Valerio MD I was present for the entire procedure | | | (spinal cord stimulator implantation with DRG leads at left L4 and | | | L5) and all bocanegra elements of this visit. I reviewed the | | | documentation of the other CARDIAC EXERCISE PHYSIOLOGIST providers and concur with | | | Iman's findings. I edited his note. Alex Sanchez, | | | ,PhD Gear Repair Supervisor Anesthesiology and Pain Management | | | [facility] | | + [...] - JOSE ANTONIO PULIDO | [address] | [place] [address] | | | OF CARE TESTS | [...]
--- OUTSIDE RECORDS SUMMARY | ~2019-08-12 | XMS | Encounter Summary ---
Demographics + + + | Address | [address] | | | [place] [address] | + + + | Home Phone [...] Providers + +------+ + | Care Contact Manager Name | Role | Phone | [...] Alex Alba, | [facility] [address] | | | | | regional | ,PhD [address] | | | | | pain | [address] | Giuliana Maldonado | | | | | syndrome | [address] | Mailcode: | | | | | type 1 of | Rd | [address] | | | | | left lower | [place], [place] | [address] | | | | | extremity | [address] | [place], [place] | | | | | Muscle pain | Phone: | [address] | | | | | Procedures | [phone] | Phone: | | | | | NM BONE | Fax: | [phone] | | | | | &/OR JOINT | [phone] | Fax: | | | | | IMAGING | | [phone] | | | | | TOMOGRAPHIC | [...] | | 2018 | Encounter | at [facility] [address] | ,PhD [address] | | | | [address] | [address] | | | | | Mailcode: [address] | [place], [place] | | | | | [address] | [address] | | | | | [place], [place] | [phone] | | | | | [address] | | | | | | [phone] | | | +--------+ + + + [...]
--- OUTSIDE RECORDS SUMMARY | ~2019-08-12 | XMS | Encounter Summary ---
Demographics + + + | Address | [address] | | | [place] [address] | + + + | Home Phone [...] Providers + +------+ + | Care Metal Extrusion Supervisor Name | Role | Phone | [...] | | | regional | [place] | [address] | | | | | pain | FAMILY | Mailstop | | | | | syndrome), | MEDICINE P | [id number] | | | | | lower limb | [address] | [place], [place] | | | | | Gait | [place], | [address] | | | | | disturbance | [place] [address] | Phone: | | | | | Muscle pain | Phone: | [phone] | | | | | Procedures | [phone] | Fax: | | | | | REQUEST TO | Fax: | [phone] | | | | | SURGERY | [phone] | | | | | | AIRCRAFT POWERPLANT REPAIRER | | | +--------+--------+ + + + + Encounter Details +--------+ + + + + | Date | Type | Department | Care Team | Description | +--------+ + + + + | 03/01/ | Procedure | Pain Center at [facility] | Dale Cantu, | Foot pain (left); | | 2011 | | 15th Floor [address] | MD [address] | Procedure | | | | [address] Mailcode: | St Mail[address] [id number] | | | | | CH15P [facility] | [place], [place] | | | | | Health and Healing, | [address] | | | | | [facility] | [phone] | | | | | Floor [place], [place] | | | | | | [address] | | | | | | [phone] | | | +--------+ + + + [...] migh t be different from the original. [facility] Patient Instructions - Post Interventional Procedure Date: 03/01/2012 Name: Tracie Farah Date of : 1990 Procedure Performed: LUMBAR SYMPATHETIC BLOCK. Procedure Provider: Dale Cantu If you have any problems you believe are associated with your procedure tonight, Please call the Hospital Rubber Molder, and ask for the Pain Management Consu ltant. If you have problems or questions between 9:00 am and 4:00 pm, Please call the [facility] Nurse Triage Line, . If [...] to the larry ent. LAKEISHA HERRING MD [facility] Pain Center documented in this encounter Progress Notes Dale Cantu MD - 03/01/2012 2:21 PM PDTI was present for the entire procedure (lumbar sympathetic block) and all bocanegra elements of this visit. I reviewed the documentation of the other CURRICULUM DIRECTOR providers and concur with Dr. Herring's findings. [...] benefit from multidisciplinary treatment. DALE CANTU MD Hr Analyst, [facility] Pain Center Marking Machine Operator, Pain Medicine Professor, Anesthesiology & Perioperative Medicine NAEiDiana scott RN - 03/01/2012 1:35 PM PDT PRE-SEDATION: Date: March 01, 2012 Tracie Farah [id number] 1990 ALLERGIES: Morphine Previous reaction to Sedation/Analgesia: MEDICATIONS: Current Outpatient Prescriptions Medication DULoxetine (CYMBALTA) 30 mg Oral Capsule, Delayed Release(E.C.) HYDROcodone-acetaminophen (NORCO) 10-325 mg Oral Tablet levonorgestrel (MIRENA) 20 mcg/24 hr Intrauterine IUD LORazepam 1 mg Oral Tablet promethazine 25 mg Oral Tablet Meets NPO Guidelines. IV ACCESS: IV in Place IV Start Time 44838, 22g, DRH BASELINE VS: See Sedation Flow Sheet. Tracie Farah [id number] 1990, presents to clinic for: Procedure: Lumbar [...] ml. 1344: Procedure complete. Pt returned to balm 1 per [facility] in stable condiotion. IV dc'd. Cece Arreola [...] OPERATIVE NOTE Date: March 01, 2012 Location: [facility] Procedure Room Tracie Donaldson [facility] [id number] :1990, presents to clinic for: PROCEDURE: Lumbar sympathetic block LEVEL/LATERALITY: left L3 PRE-OPERATIVE DIAGNOSIS: 355.71B CRPS (complex regional pain syndrome), lower limb 719.46 Pain in joint, lower leg POST-OPERATIVE DIAGNOSIS: 355.71B CRPS (complex regional pain syndrome), lower limb 719.46 Pain in joint, lower leg ATTENDING PHYSICIAN: Dale Cantu FILTER PULP WASHER: Fellow Lakeisha Herring MD ANESTHESIA: sedation delivered [...] sedation. Ms. Farah was escorted to the [facility] Procedure Ro om, where she was [...] compromise. Ms. Farah was transported to the [facility] Comprehensive Pain Center post-procedure recovery area [...] block. Images were saved, and sent to [employer]. Ms. Farah will have her next appointment [...] | + +--------+ + + + | HI INJECT NERV | Routin | 03/01/2012 | CRPS (complex | | | BLCK,PARAVERT | e | 2:20 PM | regional pain | | | SYMPATH | | PDT | syndrome), lower | | | | | | limb Pain in joint, | | | | | | lower leg | | + +--------+ + + + | HI LOCM 100-199 | Routin | 03/01/2012 | CRPS (complex | | | MG/MLICON | e | 1:53 PM | regional pain | | | | | PDT | syndrome), lower | | | | | | limb Pain in joint, | | | | | | lower leg | | + +--------+ + + + | HI INJ BUPIVACAINE | Routin | 03/01/2012 | [...]
--- OUTSIDE RECORDS SUMMARY | ~2019-08-12 | XMS | Encounter Summary ---
Demographics + + + | Address | [address] | | | [place] [address] | + + + | Home Phone [...] Team Providers + +------+ + | Care Pail Bailer Name | Role | Phone | + +------+ + | Allegra Gandhi | PCP | | + +------+ + Encounter Details +--------+ + + + + | Date | Type | Department | Care Team | Description | +--------+ + + + + | 02/13/ | Hospital | Nuclear Medicine | | | | 2011 | Encounter | at [facility] [address] | | | | | | [address] | | | | | | Mailcode: [address] | | | | | | [place] | | | | | | [place], [place] | | | | | | [address] | | | | | | [phone] | | | +--------+ + + + [...]
--- OUTSIDE RECORDS SUMMARY | ~2019-08-12 | XMS | Encounter Summary ---
Demographics + + + | Address | [address] | | | [place] [address] | + + + | Home Phone [...] Team Providers + +------+ + | Care Percussion Instrument Repairer Name | Role | Phone | + +------+ + | Justo Vazquez MD | PCP | | + +------+ + Encounter Details +--------+ + + + + | Date | Type | Department | Care Team | Description | +--------+ + + + + | 09/27/ | Telephone | [facility] | Ilene Bright, | | | 2017 | | Pain Center at | PIE CRUST MIXER [address] | | | | | [facility] | Ave [place], [place] | | | | | [address] | [address] | | | | | Mailcode: CH15P | [phone] | | | | | [facility] | | | | | | and Healing, | | | | | | | | | | | | [place], [place] | | | | | | [address] | | | | | | [phone] | | | +--------+ + + + [...]
--- OUTSIDE RECORDS SUMMARY | ~2019-08-12 | XMS | Encounter Summary ---
Demographics + + + | Address | [address] | | | [place] [address] | + + + | Home Phone [...] Team Providers + +------+ + | Care Crm Developer Name | Role | Phone | + +------+ + | Justo Vazquez MD | PCP | | + +------+ + Encounter Details +--------+ + + + + | Date | Type | Department | Care Team | Description | +--------+ + + + + | 09/25/ | Pharmacy | [facility] | | | | 2018 | Visit | & [facility]aling Pharmacy | | | | | | [address] | | | | | | Mailcode: [place] | | | | | | [facility] and | | | | | | Healing, Building [address] | | | | | | [facility] [place] | | | | | | [address] | | | | | | [phone] | | | +--------+ + + + [...]
--- OUTSIDE RECORDS SUMMARY | ~2019-08-12 | XMS | Encounter Summary ---
Demographics + + + | Address | [address] | | | [place] [address] | + + + | Home Phone [...] Providers + +------+ + | Care Information Architect Name | Role | Phone | [...] | | syndrome | [address] | [facility] | | | | | type 1 of | Rd | Rd [place], | | | | | left lower | [place], [place] | [place] | | | | | extremity | [address] | [address] | | | | | Procedures | Phone: | Phone: | | | | | REQUEST TO | [phone] | [phone] | | | | | SURGERY | Fax: | Fax: | | | | | EYELET PUNCH OPERATOR | [phone] | [phone] | +--------+---------+ + + + + Encounter Details +--------+---------+ + + + | Date | Type | Department | Care Team | Description | +--------+---------+ + + + | 09/28/ | Office | [facility] | Yun Frey, ASSISTANT PROFESSOR OF ANTHROPOLOGY | Complex regional | | 2018 | Visit | Pain Center at | [address] | pain syndrome type 1 | | | | [facility] | [place], [place] | of left lower | | | | [address] | [address] | extremity (Primary | | | | Mailcode: CH15P | [phone] | Dx); Arthralgia of | | | | [place] for [facility] | | left lower leg | | | | and Healing, | | | | | | | | | | | | Floor [place], [place] | | | | | | [address] | | | | | | [phone] | | | +--------+---------+ + + + [...] the time to see us in the [facility] Pain Center. It was great to [...] PM PST September 28, 2018 Tracie Farah [id number] [facility] Return [...] a pain drawing which I reviewed. [facility] Questionnaire Follow-up Patient 10/10/2017 Please [...] DRG Spinal Cord Stimuation Trial with [employer] system LEVEL/LATERALITY: left L4, L5. Till date, [...] turned up to 7%. After seeing th escrow representative today and killian ing adjustments, she [...] Hemroidectomy Trial spinal cord stimulator leads 08/02/2012 [facility], Surgeon: Janak Riojas MD Cholecystectomy [...] the vein (IV) every eight hour s. 7396-8166-82 COMPOUNDED MED RX CONTROLLED (SEE ADMIN INSTRUCT [...] by physician. Concentration is 150mg/mL. Compounded by [employer] ) KETOROLAC IM Inject into the muscle [...] (IV) every twel ve hours as needed. 2388-5323-20 ONDANSETRON 4 MG DISINTEGRATING TABLET Dissolve 1 tablet in mouth every twelve hours as nee ded. PANTOPRAZOLE 40 MG TABLET,DELAYED RELEASE Take 40 mg by mouth once daily. PEG 3350-ELECTROLYTES 236 GRAM-22.74 GRAM-6.74 GRAM-5.86 GRAM SOLUTION Take as directed by [facility] Digestive Health- 2 gallon bowel prep [...] been given programming opti ons by the [employer]'s device escrow representative, Michele. At this time, there is no complication from the DRG trial. Recommendations/Plan: 1. Recommend to keep her appointment with Dr. Sanchez on 10/02/2018. 2. To contact the [employer]'s rep if she has any further question on programming. 09/28/2018: I, Dayana Ivan, am functioning as a medical billing clerk for Yun Frey NP. I have reviewed and verified the above scribed note of my visit with this patient as record ed by Ms. Dayana Ivan. Jeanine Frey (Mr.) MSN, ACNP- Nurse Practitioner Acute Pain Service /[facility] [address] [place] [id number] documented in this enco unter Plan of [...]
--- OUTSIDE RECORDS SUMMARY | ~2019-08-12 | XMS | Encounter Summary ---
Demographics + + + | Address | [address] | | | [place] [address] | + + + | Home Phone [...] Providers + +------+ + | Care Non Profit Job Titles Name | Role | Phone [...] | | [address] | [address] QUITMAN, | Abdominal pain | | | | Mailcode: [place] | [place] [address] | | | | | [facility] and | [phone] | | | | | [facility], [facility] 2 | | | | | | [place], [place] | | | | | | [address] | | | | | | [phone] | | | +--------+ + + + [...]
--- OUTSIDE RECORDS SUMMARY | ~2019-08-12 | XMS | Encounter Summary ---
Demographics + + + | Address | [address] | | | [place] [address] | + + + | Home Phone [...] Providers + +------+ + | Care Brick Tender Name | Role | Phone | [...] Medical Records | | 2017 | | [place] at [facility] [address] | MD Melissa | Review | | | | [address] | | | | | | Mailcode: [place] | | | | | | [facility] and | | | | | | [facility], [facility] 2 | | | | | | [place], [place] | | | | | | [address] | | | | | | [phone] | | | +--------+ + + + [...]
--- OUTSIDE RECORDS SUMMARY | ~2019-08-12 | XMS | Encounter Summary ---
Demographics + + + | Address | [address] | | | [place] [address] | + + + | Home Phone [...] Providers + +------+ + | Care Rn Licensed Practical Name | Role | Phone | + [...] Oliveira | | 2011 | IP | [address] | | House - Approved | | | | [place], | | | | | | [place] [address] | | | +--------+ + + + [...]
--- OUTSIDE RECORDS SUMMARY | ~2019-08-12 | XMS | Encounter Summary ---
Demographics + + + | Address | [address] | | | [place] [address] | + + + | Home Phone [...] Team Providers + +------+ + | Care Voice Coach Name | Role | Phone | [...] | Orthopedics | Diagnoses | Sdrulla, | [place], | | | | | Complex | [place], | Ranjeet Odom MD | | | | | regional | ,PhD [address] | [address] | | | | | pain | [address] | Ave | | | | | syndrome | [address] [place] | [place], [place] | | | | | type 1 of | Rd | [address] | | | | | left lower | [place], [place] | Phone: | | | | | extremity | [address] | [phone] | | | | | Procedures | Phone: | Fax: | | | | | CONSULT TO | [phone] | [phone] | | | | | ORTHOPEDICS | Fax: | | | | | | AND | [phone] | | | | | | REHABILITATI [...] | ankle results) | | | | [facility] | [facility] | | | | | [address] | [place], [place] | | | | | Mailcode: CH15P | [address] | | | | | [facility] | [phone] | | | | | and Healing, | | | | | | Building | | | | | | Floor [place], [place] | | | | | | [address] | | | | | | [phone] | | | +--------+ + + + [...]
--- OUTSIDE RECORDS SUMMARY | ~2019-08-12 | XMS | Encounter Summary ---
Demographics + + + | Address | [address] | | | [place] [address] | + + + | Home Phone [...] Team Providers + +------+ + | Care Grill Cook Name | Role | Phone | [...] 2016 | | Pain Center at | COMMUNICATION STUDIES PROFESSOR [address] | | | | | [facility] | [place], [place] | | | | | [address] | [address] | | | | | Mailcode: CH15P | [phone] | | | | | [facility] | | | | | | [address], | | | | | | Building | | | | | | [place], [place] | | | | | | [address] | | | | | | [phone] | | | +--------+ + + + [...]
--- OUTSIDE RECORDS SUMMARY | ~2019-08-12 | XMS | Encounter Summary ---
Demographics + + + | Address | [address] | | | [place] [address] | + + + | Home Phone [...] + +------+ + | Care Director Of Transportation Name | Role | Phone | + +------+ + | Justo Vazquez MD | PCP | | + +------+ + Encounter Details +--------+ + + + + | Date | Type | Department | Care Team | Description | +--------+ + + + + | 03/18/ | Telephone | Digestive Health | Kenny Gaspar MD | | | 2017 | | [place] at [facility] [address] | [address] | | | | | [address] | [place]iana Maldon[address] [place], | | | | | Mailcode: [place] | [place] [address] | | | | | [facility] and | [phone] | | | | | [facility], [facility] 2 | | | | | | [place], [place] | | | | | | [address] | | | | | | [phone] | | | +--------+ + + + [...]
--- OUTSIDE RECORDS SUMMARY | ~2019-08-12 | XMS | Encounter Summary ---
Demographics + + + | Address | [address] | | | [place] [address] | + + + | Home Phone [...] Providers + +------+ + | Care Financial Management Analyst Name | Role | Phone [...] | Anesthesia | [facility] | Arben Valerio, | | | 2019 | Event | [place] for [facility] | [address] | | | | | and Healing Surgery | [address] | | | | | [facility] | [place], [place] | | | | | Desk Located on the | [address] | | | | | 4th floor [address] | [phone] | | | | | [address] [place], | | | | | | [place] [address] | | | +--------+ + + + + Anesthesia Record + + + + + | Procedure Name | Responsible | Anesthesia Start | Anesthesia Stop Time | | | Anesthesiologist | Time | | + + + + + | BILATERAL DORSAL | Ilir Martinez Valdes, | 12/05/18 0741 | 12/05/18 1044 [...] | | | | Until Tue12/05/18 at 1032 | | | | | [...] INTRAPROCEDURE PRN, Starting Tue | | 19 7:54 | | | [...] 9:11 | | | | | Starting Tue12/05/18 at 0741, | | AM PST | | | | | Until Tue12/05/18 at 1032 | | | | | [...] | in | | | | Until e 12/05/18 [...]
--- OUTSIDE RECORDS SUMMARY | ~2019-08-12 | XMS | Encounter Summary ---
Demographics + + + | Address | [address] | | | [place] [address] | + + + | Home Phone [...] Providers + +------+ + | Care Paper Bundler Name | Role | Phone | + [...] with nausea | [address] | Rd [place], | | | | | Complex | Rd | [place] | | | | | regional | [place], [place] | [address] | | | | | pain | [address] | Phone: | | | | | syndrome | Phone: | [phone] | | | | | type 1 of | [phone] | Fax: | | | | | left lower | Fax: | [phone] | | | | | extremity | [phone] | | | | | | Procedures [...] | | | location | Rd | [facility] | | | | | Procedures | [place], [place] | Rd [place], | | | | | CONSULT TO | [address] | [place] | | | | | PAIN | Phone: | [phone] | | | | | MANAGEMENT | [phone] | Phone: | | | | | | Fax: | [phone] | | | | | | [phone] | Fax: | | | | | | | [phone] | +--------+--------+ + + + + Encounter Details +--------+---------+ + + + | Date | Type | Department | Care Team | Description | +--------+---------+ + + + | 04/19/ | Office | [facility] Comprehensive | Alex Sanchez, | Intractable cyclical | | 2018 | Visit | Pain Center at | ,PhD [address] | vomiting with | | | | [facility] | [facility] [address] | nausea (Primary Dx); | | | | [address] | [place], [place] | Complex regional | | | | Mailcode: CH15 | [address] | pain syndrome type 1 | | | | [place] for [facility] | [phone] | of left lower | | | | and Healing, | | extremity | | | | Building | | | | | | Floor [facility] [place] | | | | | | [address] | | | | | | [phone] | | | +--------+---------+ + + + [...] last appoi ntment at the [facility] [place] was 12/27/2017, for a procedure (popliteal nerve [...] not help for the abdominal pain). 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 Goes to [employer] with a light load. Has been working at [employer], can' t work on [employer]. Has roommates. Allergies Allergen Reactions Morphine Anaphylaxis [...] by physician. Concentration is 150mg/mL. Compounded by [employer] ) KETOROLAC IM Inject into the muscle [...] as directed by [facility] Digestive Health- 2 gallon bowel [...] to her by Christie Madrid MD in [place], [place]. As she chowdhury s since left the practice, Ms. Farah no longer has a prescriber for this medication. At [facility], we typically do [...] unclear etiology. She presents to the ER [facility], and is greatly helped by Toradol, [...] Follow up as needed Alex Sanchez MD,PhD [facility] 3 :41 PM Дмитрий, [...]
--- OUTSIDE RECORDS SUMMARY | ~2019-08-12 | XMS | Encounter Summary ---
Demographics + + + | Address | [address] | | | [place] [address] | + + + | Home Phone [...] Team Providers + +------+ + | Care Telephonic Nurse Case Manager Name | Role | [...] | | Pain Center at | [address] | | | | | [facility] | [address] [address] | | | | | [address] | [place], [place] | | | | | Mailcode: [facility] | [address] | | | | | [facility] | [phone] | | | | | and Healing, | | | | | | [facility] | | | | | | [place], [place] | | | | | | [address] | | | | | | [phone] | | | +--------+ + + + [...]
--- OUTSIDE RECORDS SUMMARY | ~2019-08-12 | XMS | Encounter Summary ---
Demographics + + + | Address | [address] | | | [place] [address] | + + + | Home Phone [...] + + + + | 12/07/ | Ichthyologist | Endoscopic | Ava Carbajal | | | 2016 | | Procedural Unit at | MD Melissa | | | | | [facility] | | | | | | [address] | | | | | | Mailcode: OC2L | | | | | | [facility] | | | | | | and Healing, | | | | | | Building 2 | | | | | | [place], [place] | | | | | | [address] | | | | | | [phone] | | | +--------+ + + + [...]
--- OUTSIDE RECORDS SUMMARY | ~2019-08-12 | XMS | Encounter Summary ---
Demographics + + + | Address | [address] | | | [place] [address] | + + + | Home Phone [...] Providers + +------+ + | Care Booking Officer Name | Role | Phone [...] Shane | | | | | [facility] | [facility] | | | | | [address] | [place] [address] | | | | | Mailcode: CH15P | [phone] | | | | | [facility] | | | | | | [address], | | | | | | Building | | | | | | [place], [place] | | | | | | [address] | | | | | | [phone] | | | +--------+ + + + [...]
--- OUTSIDE RECORDS SUMMARY | ~2019-08-12 | XMS | Encounter Summary ---
Demographics + + + | Address | [address] | | | [place] [address] | + + + | Home Phone [...] Providers + +------+ + | Care Roll Threader Operator Name | Role | Phone | [...] | 2017 | Encounter | [address] | MD [address] | | | | | Ave Mailcode: [facility] | [place], [place] | | | | | [facility] | [address] | | | | | Health and Healing, | [phone] | | | | | [place] [address] | | | | | | [place], [place] | | | | | | [address] | | | | | | [phone] | | | +--------+ + + + [...] Discharge Instructions Instructions Darlin Doyle RN - 12/14/2016[place] Care Instructions after Colonoscopy You may resume [...] Call the endoscopy department toll free ext. [phone] or After business hours or on weekends and holidays call the [facility] toll free [phone] Ext. [phone] or and have the GI doctor telephone services sales representative paged. The provider who performed your procedure [...] Farah is a 26 y.o. female MR# [id number] presents today for colonoscopy NPO since midnight [...]
--- OUTSIDE RECORDS SUMMARY | ~2019-08-12 | XMS | Encounter Summary ---
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 | | | | Therapy | CRPS | Janak Martinez MD | [address] | | | | | (complex | [address] | | | | | regional | [address] | Mailcode: | | | | | pain | Mailstop | [facility] | | | | | syndrome), | [id number] | for Health | | | | | lower limb | [place], [place] | and Healing, | | | | | Gait | [address] | Building [address] | | | | | disturbance | Phone: | [place], [place] | | | | | Muscle pain | [phone] | [address] | | | | | Procedures | Fax: | Phone: | | | | | PHYSICAL | [phone] | [phone] | | | | | THERAPY | [...] | | | [place] | Ave [place], [place] | syndrome), lower | | | | [address] | [phone] | limb (Primary Dx) | | | | Mailcode: [facility] | | | | | | [facility] | | | | | | and Healing, | | | | | | Building [address] | | | | | | Floor [place], [place] | | | | | | [address] | | | | | | [phone] | | | +--------+---------+ + + + [...] 10 documented in this encounter Progress Notes Gulilermo Sanon I, PT - 06/07/2012 1:02 PM PDTFormatting of this note might be different f rom the original. [id number] BRODY FARAH Date of : 1990 Start of care: 02/14/2012 Date of onset: 02/14/2012 Referring/Attending Practitioner: Janak Riojas MD . Primary/Referral Diagnosis/ICD-9: 355.71B CRPS (complex regional pain syndrome), lower limb Insurance: Payor: [facility] Plan: BCBS OUT OF STATE Product [...] HOSPITAL Outpatient Rehabilitation Services Mailcode: [facility] [address] [facility], [address]st [facility] [address] documented in this encounter Plan [...]
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
--- OUTSIDE RECORDS SUMMARY | ~2019-08-12 | XMS | Encounter Summary ---
Demographics + + + | Address | [address] | | | [place] [address] | + + + | Home Phone [...] Team Providers + +------+ + | Care Absorption Operator Name | Role | Phone | [...] | | | | | extremity | [address] | [address] | | | | | Procedures | Phone: | Phone: | | | | | REQUEST TO | [phone] | [phone] | | | | | SURGERY | Fax: | Fax: | | | | | ANALOG DESIGN ENGINEER | [phone] | [phone] | +--------+---------+ + + + + Physical Therapy (Routine) +--------+--------+ + + + + | Status | Reason | Specialty | Diagnoses / | Referred By | Referred To | | | | | Procedures | Contact | Contact | +--------+--------+ + + + + | Closed | | Physical | Diagnoses | Daniel, | [facility] | | | | Therapy | Complex | Alex Alba, | [place] | | | | | regional | ,PhD [address] | OTPTRehab | | | | | pain | [address] [facility] [address] | [address] | | | | | syndrome | [facility] | [place] | | | | | type [address] of | [address] | [place] | | | | | left lower | [place], [place] | [address] | | | | | extremity | [address] | Phone: | | | | | Procedures | Phone: | [phone] | | | | | PHYSICAL | [phone] | Fax: | | | | | THERAPY | Fax: | [phone] | | | | | REFERRAL | [phone] | | +--------+--------+ + + + + [...] | | | | | Procedures | [place], [place] | Rd [place], | | | | | CONSULT TO | [address] | [place] | | | | | PAIN | Phone: | [address] | | | | | MANAGEMENT | [phone] | Phone: | | | | | | Fax: | [phone] | | | | | | [phone] | Fax: | | | | | | | [phone] | +--------+--------+ + + + + Encounter Details +--------+---------+ + + + | Date | Type | Department | Care Team | Description | +--------+---------+ + + + | 06/12/ | Office | [facility] Comprehensive | Alex Sanchez, | Complex regional | | 2018 | Visit | Pain Center at | ,PhD [address] | pain syndrome type 1 | | | | [facility] | [facility] [place] [address] | of left lower | | | | [address] | [place], [place] | extremity (Primary | | | | Mailcode: [facility]15[facility] | [address] | Dx) | | | | Center for Health | [phone] | | | | | and Healing, | | | | | | | | | | | | Floor [place], [place] | | | | | | [address] | | | | | | [phone] | | | +--------+---------+ + + + [...] in the future, please contact me via [employer] to request an order to schedule. The procedure you discussed with your doctor is called: SCS DRG TRIAL LUMBAR [facility]. Please make sure this is scheduled with the Firmware Architect. PRE-PROCEDURE INSTRUCTIONS 1. Please bring a transit driver with you as we may give you medications that impair your ability to drive. This is necessary even if you do not receive sedation. You may take a taxi or ri Seedrscar if you are accompanied by a responsible [...] phone number for questions or concerns is [phone]. documented in this encounter Progress Notes Holly [...] MD,P hD - 06/12/2018 10:00 AM PDT [facility] Return [...] that this mildly agitated her neck pain. POLLS OR SURVEYS INTERVIEWER Brief Pain Inventory: (ten= worst possible pain [...] Hemroidectomy Trial spinal cord stimulator leads 08/02/2012 [facility], Surgeon: Janak Riojas MD Cholecystectomy [...] History Social History Narrative Single. Goes to [employer] with a light load. Has been working at [employer], can' t work on [employer]. Has roommates. Allergies Allergen Reactions Morphine [...] by physician. Concentration is 150mg/mL. Compounded by [facility] ) KETOROLAC IM Inject into the [...] SOLUTION Take as directed by [facility] Digestive Health- 2 gallon bowel [...] and summary of old medical records (source: [employer]), as summarized in the body of the [...] to send me a mess age via Code[employer] to request referrals to acupuncture and massage [...] by Sonia Key. Alex Sanchez MD PhD Shredder Tender Peat Anesthesiology and Pain Management [facility] documented in t his encounter Plan of [...]
--- OUTSIDE RECORDS SUMMARY | ~2019-08-12 | XMS | Encounter Summary ---
Demographics + + + | Address | [address] | | | [place] [address] | + + + | Home Phone [...] Team Providers + +------+ + | Care Topology Teacher Name | Role | Phone | [...] Rd | | | | | | [place], [place] | | | | | | [address] | | | +--------+ + + + [...]
--- OUTSIDE RECORDS SUMMARY | ~2019-08-12 | XMS | Encounter Summary ---
Demographics + + + | Address | [address] | | | [place] [address] | + + + | Home Phone [...] Providers + +------+ + | Care City Editor Name | Role | Phone | [...] | | | regional | [place] | [address] | | | | | pain | FAMILY | Mailstop | | | | | syndrome), | MEDICINE P | [id number] | | | | | lower limb | [address] | [place], [place] | | | | | Pain in | [place], | [address] | | | | | joint, lower | [place] [address] | Phone: | | | | | leg | Phone: | [phone] | | | | | Procedures | [phone] | Fax: | | | | | REQUEST TO | Fax: | [phone] | | | | | SURGERY | [phone] | | | | | | CLOSING SUPERVISOR | | | +--------+--------+ + + [...] | | | 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 | FAMILY | Mailstop | | | | | of lower | MEDICINE P | [address] | | | | | limb | [address] | [place], [place] | | | | | | [place], | [address] | | | | | | [place] [address] | Phone: | | | | | | Phone: | [phone] | | | | | | [phone] | Fax: | | | | | | Fax: | [phone] | | | | | | [phone] | | +--------+--------+ + + + + Encounter Details +--------+---------+ + + + | Date | Type | Department | Care Team | Description | +--------+---------+ + + + | 06/06/ | Office | [facility] Comprehensive | Dale Cantu, | CRPS (complex | | 2011 | Visit | Pain Center at | MD [address] [facility] | regional pain | | | | [facility] | [facility] [id number] | syndrome), lower | | | | [address] | [place], [place] | limb; Pain in joint, | | | | Mailcode: [facility]15[facility] | [address] | lower leg | | | | Center for Health | [phone] | | | | | and Healing, | | | | | | | | | | | | Floor [place], [place] | | | | | | [address] | | | | | | [phone] | | | +--------+---------+ + + + [...] Dale Cantu MD - 06/06/2012 11:49 AM [facility] Pre-Procedure Instructions: The procedure you discussed with your doctor is called: SCS TRIAL LUMBAR [facility]. Please make sure this is scheduled with the Asw Specialist. Please bring a school bus driver with you. We may give you medications that make you drowsy or otherw ise unsafe to drive. If you do not have a school bus driver, we will not be able [...] PLEASE CONTACT THE COMPREHENSIVE PAIN CENTER AT [phone]) FOR QUESTIONS OR IF YOU NEED TO CANCEL YOUR APPOINTMENT. [facility] Comprehensive Pain Center documented in [...] not signed. Given information. DALE CANTU MD Service Rig Operator, Comprehensive Pain Center Bpo Specialist, Pain Medicine Professor, Anesthesiology & Perioperative Medicine ollHomer manriquez MD - 06/06/2012 11:17 AM PDT [facility] [[email or web address]] [...] and a pain drawing which I reviewed. [facility] Brief Pain Inventory: (ten= [...] The Review of Systems obtained by the LEAVE COORDINATOR was reviewed. Additional Review of Systems: Bones, [...] up with Dr. Dale Cantu at the [facility] today for left foot CRPS which [...] therapy Homer Elaine MD Pain Medicine Fellow [facility] [place] Evelia Parsons - 11:07 AM PDTCMA History: [...]
--- OUTSIDE RECORDS SUMMARY | ~2019-08-12 | XMS | Encounter Summary ---
Demographics + + + | Address | [address] | | | [place] [address] | + + + | Home Phone [...] Providers + +------+ + | Care Antique [employer] Museum Maintenance Worker Name | Role | Phone [...] + | 05/01/ | Telephone | [facility] | Alex Sanchez, | Letter Encounter | | 2018 | | Pain Center at | ,PhD [address] | (plan of care) | | | | [facility] | [facility] | | | | | [address] | [place], [place] | | | | | Mailcode: [facility]15[facility] | [address] | | | | | [facility] | [phone] | | | | | and Healing, | | | | | | Building | | | | | | [place], [place] | | | | | | [address] | | | | | | [phone] | | | +--------+ + + + [...]
--- OUTSIDE RECORDS SUMMARY | ~2019-08-12 | XMS | Encounter Summary ---
Demographics + + + | Address | [address] | | | [place] [address] | + + + | Home Phone [...] Providers + +------+ + | Care Order Department Supervisor Name | Role | Phone | [...] System [facility] | [facility], | | | | | [address] | [place] [address] | | | | | Mailcode: [facility]15[facility] | [phone] | | | | | [facility] | | | | | | joana Mack, | | | | | | | | | | | | [place], [place] | | | | | | [address] | | | | | | [phone] | | | +--------+ + + + [...]
--- OUTSIDE RECORDS SUMMARY | ~2019-08-12 | XMS | Encounter Summary ---
Demographics + + + | Address | [address] | | | [place] [address] | + + + | Home Phone [...] Providers + +------+ + | Care Certified Addiction Counselor Name | Role | Phone | + +------+ + | Justo Vazquez MD | PCP | | + +------+ + Encounter Details +--------+ + + + + | Date | Type | Department | Care Team | Description | +--------+ + + + + | 03/11/ | Telephone | [facility] | Zeeshan Mahoney MD | | | 2019 | | Pain Center at | [address] | | | | | [facility] | [address] [place], | | | | | [address] | [place] [address] | | | | | Mailcode: CH15P | [phone] | | | | | [facility] | | | | | | and Healing, | | | | | | | | | | | | [place], [place] | | | | | | [address] | | | | | | [phone] | | | +--------+ + + + [...]
--- OUTSIDE RECORDS SUMMARY | ~2019-08-12 | XMS | Encounter Summary ---
Demographics + + + | Address | [address] | | | [place] [address] | + + + | Home Phone [...] Providers + +------+ + | Care Paint Brush Maker Name | Role | Phone | [...] | 2015 | Encounter | Center at [facility] [address] | MD Melissa | | | | | [address] | | | | | | Mailcode: Center | | | | | | for Health and | | | | | | [facility], Building [address] | | | | | | [place], [place] | | | | | | [address] | | | | | | [phone] | | | +--------+ + + + [...]
--- OUTSIDE RECORDS SUMMARY | ~2019-08-12 | XMS | Encounter Summary ---
Demographics + + + | Address | [address] | | | [place] [address] | + + + | Home Phone [...] Providers + +------+ + | Care Systems Development Manager Name | Role | Phone [...] Rd | | | | | | [place], [place] | | | | | | [address] | | | +--------+ + + + [...]
--- OUTSIDE RECORDS SUMMARY | ~2019-08-12 | XMS | Encounter Summary ---
Demographics + + + | Address | [address] | | | [place] [address] | + + + | Home Phone [...] Providers + +------+ + | Care Senior Game Developer Name | Role | Phone [...] + + | 10/07/ | Telephone | [facility] Comprehensive | Yosef Kenney MD | Wound infection | | 2018 | | Pain Center at | [address] | (Concern for DRG | | | | [facility] | [address] [place], | trial wound | | | | [address] | [place] [address] | infection) | | | | Mailcode: CH15P | [phone] | | | | | [facility] | | | | | | and Healing, | | | | | | | | | | | | Floor [place], [place] | | | | | | [address] | | | | | | [phone] | | | +--------+ + + + [...]
--- OUTSIDE RECORDS SUMMARY | ~2019-08-12 | XMS | Encounter Summary ---
Demographics + + + | Address | [address] | | | [place] [address] | + + + | Home Phone [...] Team Providers + +------+ + | Care Bead Forming Machine Operator Name | Role | Phone [...] | | | sympathetic | [place] | [address]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 | FAMILY | Mailstop | | | | | of lower | MEDICINE P | [id number] | | | | | limb | [address] | [place], [place] | | | | | | [place], | [address] | | | | | | [place] [address] | Phone: | | | | | | Phone: | [phone] | | | | | | [phone] | Fax: | | | | | | Fax: | [phone] | | | | | | [phone] | | +--------+--------+ + + + + Encounter Details +--------+---------+ + + + | Date | Type | Department | Care Team | Description | +--------+---------+ + + + | 03/17/ | Office | [facility] | Dale Cantu, | CRPS (complex | | 2011 | Visit | Pain Center at | [address] | regional pain | | | | [place] | [address] [id number] | syndrome), lower | | | | [address] | [place], [place] | limb; Adjustment | | | | Mailcode: CH15 | [address] | reaction; Muscle | | | | [facility] | [phone] | pain; Gait | | | | and Healing, | | disturbance | | | | Building | | | | | | Floor [place], [place] | | | | | | [address] | | | | | | [phone] | | | +--------+---------+ + + + [...] Pain: After Your Visit", log into your Bag Borrow or Steal nt at [email or web address]. You can enter G828 in the WeGoOut Library" search box. Not on Upfront Digital Mediahart? Review the MyChart section of your After Visit Summary for directions on liz rea to sign up. [id number] TechMedia Advertising. Care instructions adapted under license by [facility] [place]. This care instruction is for use with your licensed healthcar e professional. If you have questions about a medical condition or this instruction, always ask your healthcare professional. [employer]Media Ad[employer] disclaims any warranty or liabili ty for your use of this information. Content Version: 9.2.752905; Last Revised: April 29, 2011 Nortriptyline for [...] Pain: After Your Visit", log into your Bag Borrow or Steal nt at [email or web address]. You can enter G828 in the WeGoOut Library" search box. Not on Valeritas? Review the Upfront Digital Mediahart section of your After Visit Summary for directions on ho w to sign up. 9452-7648 [employer]Media Ad[employer]. Care instructions adapted under license by [facility] [place]. This care instruction is for use with your licensed healthcar e professional. If you have questions about a medical condition or this instruction, always ask your healthcare professional. [employer] disclaims any warranty or liabili ty for your use of this information. Content Version: 9.2.615400; Last Revised: April 29, 2011 documented in this encounter Progress Notes Dale Cantu MD - 03/17/2012 4:21 PM PDTI saw and evaluated the patient with Resident : Marquis Elaine MD, who conducted the initial history. I reviewed the history in detail a nd edited his note. I was present for the examination and formulation portions of the wmchealthou nter. I agree with the findings and the plan of care as documented in our notes. DALE CANTU MD Entry Manager, [facility] Can Washer, Pain Medicine Professor, Anesthesiology & Perioperative Medicine NAMollMarquis manriquez MD - 03/17/2012 3:42 PM PDT [facility] Return Visit with Dr. [...] her pain. She continues to take 6-8 Castalia per day and 600 mg of ibuprofen [...] a pain drawing which I reviewed. [facility] Brief Pain Inventory: (ten= worst possible pain [...] you require any medication refills today? no DIDACTIC PROGRAM IN DIETETICS DIRECTOR ROS: 1. Bones, Joints, and Muscles: cramps [...]
--- OUTSIDE RECORDS SUMMARY | ~2019-08-12 | XMS | Encounter Summary ---
Demographics + + + | Address | [address] | | | [place] [address] | + + + | Home Phone [...] Providers + +------+ + | Care Medical Equipment Technician Name | Role | Phone | [...] | | | sympathetic | [place] | [address]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 | FAMILY | Mailstop | | | | | of lower | MEDICINE P | [id number] | | | | | limb | [address] | [place], [place] | | | | | | [place], | [address] | | | | | | [place] [address] | Phone: | | | | | | Phone: | [phone] | | | | | | [phone] | Fax: | | | | | | Fax: | [phone] | | | | | | [phone] | | +--------+--------+ + + + + Encounter Details +--------+---------+ + + + | Date | Type | Department | Care Team | Description | +--------+---------+ + + + | 08/04/ | Office | [facility] | Dale Cantu, | CRPS (complex | | 2011 | Visit | Pain Center at | MD [address] [address] | regional pain | | | | [facility] | [facility] [id number] | syndrome), lower | | | | [address] | [place], [place] | limb (Primary Dx) | | | | Mailcode: CH15P | [address] | | | | | [facility] | [phone] | | | | | and Healing, | | | | | | Building | | | | | | Floor [place], [place] | | | | | | [address] | | | | | | [phone] | | | +--------+---------+ + + + [...] evaluated the patient with Fellow Nhan Guo [facility], who conducted the initial history. I reviewed the history in det ail and edited his note. I was present for the examination and formulation portions of the encounter. I agree with the findings and the plan of care as documented in our notes. DALE CANTU MD Ostomy Nurse, [facility] Government Affairs Researcher, Pain Medicine Professor, Anesthesiology & Perioperative [...] physical activity and social withdrawal enok Gutierrez, [facility] - 08/04/2012 7:25 AM PDTFormatting of this note might be different from the [facility] Return Visit with Dr. [...] been treated at the [facility] for lower limb pain with the [...] and a pain drawing which I reviewed. [facility] Brief Pain Inventory: (ten= worst [...] The Review of Systems obtained by the [facility] was reviewed. Additional Review of Systems: 1. [...] multiple programs with both [facility] and [facility] programs, however it appears that it does [...] bath today, OK to shower. HENOK GUO, [facility] documented in this en counter Plan of Treatment Not on filedocumented as of this encounter Visit Diagnoses + + | Diagnosis | + + | CRPS (complex regional pain syndrome), lower limb - Primary Causalgia of lower limb | + + documented in this encounter
--- OUTSIDE RECORDS SUMMARY | ~2019-08-12 | XMS | Encounter Summary ---
Demographics + + + | Address | [address] | | | [place] [address] | + + + | Home Phone [...] Providers + +------+ + | Care Security Assistant Name | Role | Phone | [...] | | | | regional | ,PhD 9691 | | | | | | pain | [address] | | | | | | syndrome | [address] | | | | | | type 1 of | Rd | | | | | | left lower | [place], [place] | | | | | | extremity | [address] | | | | | | Other | Phone: | | | | | | chronic pain | [phone] | | | | | | S/P | Fax: | | | | | | insertion of | [phone] | | | | | | spinal [...] | | | | regional | ,PhD 8367 | | | | | | pain | [address] | | | | | | syndrome | [address] | | | | | | type 1 of | Rd | | | | | | left lower | [place], [place] | | | | | | extremity | [address] | | | | | | Other | Phone: | | | | | | chronic pain | [phone] | | | | | | S/P | Fax: | | | | | | insertion of | [phone] | | | | | | spinal [...] | | Pain Center at | ,PhD [address] | | | | | [facility] | [facility] | | | | | [address] | [place], [place] | | | | | Mailcode: CH15P | [address] | | | | | [facility] | [phone] | | | | | and Martina, | | | | | | | | | | | | Floor [place], [place] | | | | | | [address] | | | | | | [phone] | | | +--------+ + + + [...]
--- OUTSIDE RECORDS SUMMARY | ~2019-08-12 | XMS | Encounter Summary ---
Demographics + + + | Address | [address] | | | [place] [address] | + + + | Home Phone [...] + +------+ + | Care It Security Project Manager Name | Role | Phone [...] Closed | | Orthopedics | Diagnoses | [place], | [facility] | | | | | Adjustment | Ranjeet Odom MD | [address] | | | | | disorder, | [address] | | | | | unspecified | [address] | Mailcode: | | | | | type | [place], [place] | [facility] Center | | | | | Procedures | [address] | for Health | | | | | CONSULT TO | Phone: | and Healing, | | | | | BEHAVIORAL | [phone] | Building 1, | | | | | HEALTH/PSYCH | Fax: | 12th Floor | | | | | IATRY - | [phone] | [place], [place] | | | | | ADULT | | [address] | | | | | | | Phone: | | | | | | | [phone] | | | | | | | Fax: | | | | | | | [phone] | +--------+--------+ + + + + Reason [...] | | syndrome | [address] | [place], [place] | | | | | type 1 of | Rd | [address] | | | | | left lower | [place], [place] | Phone: | | | | | extremity | [address] | [phone] | | | | | Procedures | Phone: | Fax: | | | | | CONSULT TO | [phone] | [phone] | | | | | ORTHOPEDICS | Fax: | | | | | | AND | [phone] | | | | | | REHABILITATI [...] left | | 2018 | Visit | [facility] [address] | [address] | (Primary Dx); Left | | | | Ave Mailcode: CH12A | [place], [place] | ankle pain, | | | | [facility] | [address] | unspecified | | | | and Healing, | [phone] | chronicity; | | | | [facility] | | Adjustment disorder, | | | | Floor [place], [place] | | unspecified type | | | | [address] | | | | | | [phone] | | | +--------+---------+ + + + [...] Hemroidectomy Trial spinal cord stimulator leads 08/02/2012 [facility], Surgeon: Janak Riojas MD Cholecystectomy Appendectomy [...] by physician. Concentration is 150mg/mL. Compounded by [employer] ([phone]) levonorgestrel (MIRENA) 20 mcg/24 hr Intrauterine IUD [...] oral recon soln Take as directed by [facility] [employer] [facility]- 2 gallon bowel prep polyethylene glycol [...] become. f/u open ended Ranjeet Amanda M.D. Spray Maker Foot and Ankle Surgery Department of Orthopedics & Rehabilitation [facility] [phone] >60 mins face to face consultation was [...]
--- OUTSIDE RECORDS SUMMARY | ~2019-08-12 | XMS | Encounter Summary ---
Demographics + + + | Address | [address] | | | [place] [address] | + + + | Home Phone [...] Providers + +------+ + | Care Mobile Ui Designer Name | Role | Phone | + +------+ + | Justo Vazquez MD | PCP | | + +------+ + Encounter Details +--------+ + + + + | Date | Type | Department | Care Team | Description | +--------+ + + + + | 03/12/ | Telephone | [facility] | Alex Sanchez, | | | 2019 | | Pain Center at | ,PhD [address] | | | | | [facility] | [address] | | | | | [address] | [place], [place] | | | | | Mailcode: CH15P | [address] | | | | | [place] for [facility] | [phone] | | | | | and Healing, | | | | | | | | | | | | Floor [place], [place] | | | | | | [address] | | | | | | [phone] | | | +--------+ + + + [...]
--- OUTSIDE RECORDS SUMMARY | ~2019-08-12 | XMS | Encounter Summary ---
Demographics + + + | Address | [address] | | | [place] [address] | + + + | Home Phone [...] Providers + +------+ + | Care Picker Operator Name | Role | Phone | [...] on | Center at [address] | [address] | | | | | [address] | [place], [place] | | | | | Mailcode: Center | [address] | | | | | for Health and | [phone] | | | | | [facility] [address] | | | | | | [place], [place] | | | | | | [address] | | | | | | [phone] | | | +--------+ + + + [...]
--- OUTSIDE RECORDS SUMMARY | ~2019-08-12 | XMS | Encounter Summary ---
Demographics + + + | Address | [address] | | | [place] [address] | + + + | Home Phone [...] Team Providers + +------+ + | Care Canoe Inspector Final Name | Role | Phone | + [...] | | | | | Ave Mailcode: [facility] | [place], [place] | | | | | [facility] | [address] | | | | | Health and Healing, | [phone] | | | | | [place] [address] | | | | | | [place], [place] | | | | | | [address] | | | | | | [phone] | | | +--------+ + + + [...] Discharge Instructions Instructions Darlin Doyle RN - 12/14/2016[place] Care Instructions after Colonoscopy You may resume [...] Call the endoscopy department toll free ext. [phone] or After business hours or on weekends and holidays call the Hospital Neurology Nurse toll free [phone] Ext. [phone] or and have the GI doctor relief salesperson paged. The provider who performed your procedure [...] Farah is a 26 y.o. female MR# [id number] presents today for colonoscopy NPO since midnight [...]
--- OUTSIDE RECORDS SUMMARY | ~2019-08-12 | XMS | Encounter Summary ---
Demographics + + + | Address | [address] | | | [place] [address] | + + + | Home Phone [...] Team Providers + +------+ + | Care Frameman Name | Role | Phone | + [...] | | | | regional | ,PhD 6655 | | | | | | pain | [address] | | | | | | syndrome | [address] | | | | | | type 1 of | Rd | | | | | | left lower | [place], [place] | | | | | | extremity | [address] | | | | | | Procedures | Phone: | | | | | | CONSULT TO | [phone] | | | | | | ORTHOPEDICS | Fax: | | | | | | AND | [phone] | | | | | | REHABILITATI | | | | | | | ON | | | +--------+--------+ + + + + Encounter Details +--------+ + + + + | Date | Type | Department | Care Team | Description | +--------+ + + + + | 06/08/ | Digital Media Director | [facility] | Alex Sanchez, | Complex regional | | 2018 | | Pain Center at | ,PhD [address] | pain syndrome type 1 | | | | [facility] | [address] | of left lower | | | | [address] | [place], [place] | extremity (Primary | | | | Mailcode: CH15P | [address] | Dx) | | | | [place] for [facility] | [phone] | | | | | and Healing, | | | | | | | | | | | | Floor [facility] [place] | | | | | | [address] | | | | | | [phone] | | | +--------+ + + + [...]
--- OUTSIDE RECORDS SUMMARY | ~2019-08-12 | XMS | Encounter Summary ---
Demographics + + + | Address | [address] | | | [place] [address] | + + + | Home Phone [...] Team Providers + +------+ + | Care Cisco Unified Communications Engineer Name | Role | Phone | [...] | | | | | Ave Mailcode: [facility] | [place], [place] | | | | | [facility] | [address] | | | | | Health and Healing, | [phone] | | | | | [address] [place] [address] | | | | | | [place], [place] | | | | | | [address] | | | | | | [phone] | | | +--------+ + + + [...] Discharge Instructions Instructions Darlin Doyle RN - 12/14/2016[place] Care Instructions after Colonoscopy You may resume [...] Call the endoscopy department toll free ext. [phone] or After business hours or on weekends and holidays call the Hospital Flamer Sealer toll free [phone] Ext. [phone] or and have the GI doctor center consultant paged. The provider who performed your procedure [...] Farah is a 26 y.o. female MR# [id number] presents today for colonoscopy NPO since midnight [...]
--- OUTSIDE RECORDS SUMMARY | ~2019-08-12 | XMS | Encounter Summary ---
Demographics + + + | Address | [address] | | | [place] [address] | + + + | Home Phone [...] + +------+ + | Care Press Operator Meat Name | Role | Phone | + +------+ + | Justo Vazquez MD | PCP | | + +------+ + Encounter Details +--------+ + + + + | Date | Type | Department | Care Team | Description | +--------+ + + + + | 12/05/ | Pharmacy | [facility] | | | | 2019 | Visit | & [facility]acy | | | | | | [address] | | | | | | Mailcode: [place] | | | | | | [facility] | | | | | | Healing, Building 1 | | | | | | [place], [place] | | | | | | [address] | | | | | | [phone] | | | +--------+ + + + [...]
--- OUTSIDE RECORDS SUMMARY | ~2019-08-12 | XMS | Encounter Summary ---
Demographics + + + | Address | [address] | | | [place] [address] | + + + | Home Phone [...] Providers + +------+ + | Care Hair Spinning Machine Operator Name | Role | Phone [...] | | | [address] | [address] | | | | | [place], [place] | [place], [place] | | | | | [address] | [address] | | | | | | [phone] | | | | | | | [...] | + +--------+ + + + | SUPERINTENDENT METERS MISC PROCEDURE | Routin | 12/27/2017 | Complex regional | Results for this | | | e | 3:28 PM | pain syndrome type 1 | procedure are in the | | | | PST | of left lower | results section. | | | | | extremity | | + +--------+ + + + documented in this encounter Results [facility] MISC PROCEDURE (12/27/2017 3:28 PM PST) [...]
--- OUTSIDE RECORDS SUMMARY | ~2019-08-12 | XMS | Encounter Summary ---
Demographics + + + | Address | [address] | | | [place] [address] | + + + | Home Phone [...] + +------+ + | Care Manager Of Supply Chain Name | Role | Phone | + [...]
--- OUTSIDE RECORDS SUMMARY | ~2019-08-12 | XMS | Encounter Summary ---
Demographics + + + | Address | [address] | | | [place] [address] | + + + | Home Phone [...] Team Providers + +------+ + | Care Gis Scientist Name | Role | Phone | [...] | | | [address] | [facility], | | | | | Mailcode: Center | [place] [address] | | | | | for Health and | [phone] | | | | | Healing, Building 2 | | | | | | [place], [place] | | | | | | [address] | | | | | | [phone] | | | +--------+--------+ + + + [...]
--- OUTSIDE RECORDS SUMMARY | ~2019-08-12 | XMS | Encounter Summary ---
Demographics + + + | Address | [address] | | | [place] [address] | + + + | Home Phone [...] Providers + +------+ + | Care Metal Machine Operator Name | Role | Phone [...] + + | 08/08/ | Emergency | [facility] | Mable Villarreal MD | | | 2015 | | Department [address] | | | | | [address] | [facility] | | | | | [facility] | [place], [place] | | | | | [place], [place] | [address] | | | | | [address] | [phone] | | | | | [phone] | | | | | | | Kay Brown, | | | | | | ,PhD [address] | | | | | | [facility] | | | | | | [place], [place] | | | | | | [address] | | | | | | [phone] | | | | | | | [...] about "Gastroparesis: Care Instructions", log into your Clipsure account at [email or web address]. You can enter M106 in the Criterion [employer]" search box. Not on Clipsure? Review the Clipsure section of your After Visit Summary for directions on ho w to sign up. 9067-3211 Peach. Care instructions adapted under license by [facility] [place]. This care instruction is for use with your licensed healthGlassdoor professional. If you have questions about a medical condition or this instruction, always ask your healthcare professional. Peach disclaims any warranty or liabili ty for your use of this information. Content Version: 11.0.237195; Current as of: October 03, 2015 documented [...] | | | LABORATORY | | | [facility] | | | SERVICES, | | | [...] | + + + + + | [facility] | [address] | [place] [address] | | | SERVICES, CORE | GUILLERMO [...] DEPT OF | [address] | [place], [place] | | | CARDIOLOGY | [address] | [address] | | + + + + + [...] [facility] | [address] | [place] [address] | | | SERVICES, CORE | PARK [...] [facility] | [address] | [place] [address] | | | [address] | GUILLERMO [...] | + + + + + | [facility] | [address] | [place] [address] | | | SERVICES, CORE | GUILLERMO [...] [facility] | [address] | [place] [address] | | | SERVICES, CORE | PARK [...] + | [place] [facility] - | [address] | [place] [address] | | | [place] | | | | + + + [...] | + + + + + | [facility] | [address] | [place] [address] | | | SERVICES, CORE | GUILLERMO [...] + + | [facility] | [address] | [place] [address] | | | SERVICES, LILLIAN | GUILLERMO [...] [facility] | [address] | [place] [address] | | | SERVICES, CORE | PARK [...] | | | LABORATORY | | | MACANESE | | | SERVICES, | | | [...] | + + + + + | [facility] | [address] | [place] [address] | | | [address] | [address] | | | + + + + + ED INFORMATION EXCHANGE (08/08/2016 12:21 PM PDT) + + + + + + | Component | Value | Ref Range | Performed | Pathologist | | | | | At | Signature | + + + + + + | [facility] | [id number] | | COLLECTIVE | | | | [id number] | | MEDICAL | | | | [...] | Date Location | TECHNOLOGIES | | [facility] [address] Type Dx / | | | Complaint | | | -------- | | | ------- ---- | | | 08/08/2016 12:21 [facility] | | | and [facility] [place] Emergency [address]. | | | abd pain 08/04/2016 03:50 [...] | | | | | | -Other jail (current) drug | | | therapy 06/22/2016 [...] | | | | | | -Other jail (current) drug | | | therapy | [...] --------- 1 | | | [facility] and [facility] [place] [address] [facility] | | | [facility] 8 [address] [...] COLLECTIVE MEDICAL | [address], | [place], [place] | [phone] | | TECHNOLOGIES | [address] | [address] | | + + + + + [...] | | | | | 1 dose, [place] 08/08/16 at 1345 | | PM PDT | | | | + +---------+ +-------+---+---+ +---+---+ | | | +---+---+ + +-------+ +------+---+---+ | LORazepam (ATIVAN) tablet 1 mg | Given | 08/08/20 | 1 mg | | | | 1 mg, oral, ONCE, 1 dose, [place] | | 16 3:17 | | | [...]
--- OUTSIDE RECORDS SUMMARY | ~2019-08-12 | XMS | Encounter Summary ---
Demographics + + + | Address | [address] | | | [place] [address] | + + + | Home Phone [...] Team Providers + +------+ + | Care Internet Assessor Name | Role | Phone | + +------+ + | Justo Vazquez MD | PCP | | + +------+ + Encounter Details +--------+ + + + + | Date | Type | Department | Care Team | Description | +--------+ + + + + | 03/12/ | Telephone | [facility] | Alex Sanchez, | | | 2019 | | Pain Center at | ,PhD [address] | | | | | [facility] | [address] | | | | | [address] | [place], [place] | | | | | Mailcode: CH15P | [address] | | | | | [place] for [facility] | [phone] | | | | | and Healing, | | | | | | | | | | | | Floor [place], [place] | | | | | | [address] | | | | | | [phone] | | | +--------+ + + + [...]
--- OUTSIDE RECORDS SUMMARY | ~2019-08-12 | XMS | Encounter Summary ---
Demographics + + + | Address | [address] | | | [place] [address] | + + + | Home Phone [...] Providers + +------+ + | Care Photograph Inspector Name | Role | Phone | + +------+ + | Justo Vazquez MD | PCP | | + +------+ + Encounter Details +--------+ + + + + | Date | Type | Department | Care Team | Description | +--------+ + + + + | 01/12/ | Telephone | [facility]ive [facility] | Kenny Gaspar MD | | | 2017 | | [place] at [facility] [address] | [address] | | | | | [address] | Giuliana Maldonado [place], | | | | | Mailcode: [place] | [place] [address] | | | | | [facility] and | [phone] | | | | | [facility] 2 | | | | | | [place], [place] | | | | | | [address] | | | | | | [phone] | | | +--------+ + + + [...]
--- OUTSIDE RECORDS SUMMARY | ~2019-08-12 | XMS | Encounter Summary ---
Demographics + + + | Address | [address] | | | [place] [address] | + + + | Home Phone [...] Providers + +------+ + | Care Zyglo Inspector Name | Role | Phone | [...] Pharmacy | | | | | | [address] | | | | | | Giuliana Maldonado [employer] [employer], | | | | | | [place] [address] | | | +--------+ + + + [...]
--- OUTSIDE RECORDS SUMMARY | ~2019-08-12 | XMS | Encounter Summary ---
Demographics + + + | Address | [address] | | | [place] [address] | + + + | Home Phone [...] Team Providers + +------+ + | Care Dressing Machine Operator Name | Role | Phone [...] | | Review | | | | [facility] | | | | | | [address] | | | | | | Mailcode: OC2L | | | | | | [facility] | | | | | | and Martina, | | | | | | Building 2 | | | | | | [place], [place] | | | | | | [address] | | | | | | [phone] | | | +--------+ + + + [...]
--- OUTSIDE RECORDS SUMMARY | ~2019-08-12 | XMS | Encounter Summary ---
Demographics + + + | Address | [address] | | | [place] [address] | + + + | Home Phone [...] Team Providers + +------+ + | Care Architectural Design Professor Name | Role | Phone | [...] at [facility] [address] | [address] | severe stomach Pain) | | | | [address] | Giuliana [facility], | | | | | Mailcode: [place] | [place] [address] | | | | | for Health and | [phone] | | | | | [facility], [facility] 2 | | | | | | [place], [place] | | | | | | [address] | | | | | | [phone] | | | +--------+ + + + [...]
--- OUTSIDE RECORDS SUMMARY | ~2019-08-12 | XMS | Encounter Summary ---
Demographics + + + | Address | [address] | | | [place] [address] | + + + | Home Phone [...] Providers + +------+ + | Care Assistant Oceanographer Name | Role | Phone | + +------+ + | Justo Vazquez MD | PCP | | + +------+ + Encounter Details +--------+ + + + + | Date | Type | Department | Care Team | Description | +--------+ + + + + | 10/03/ | Telephone | [facility] | Ilene Bright, | | | 2017 | | Pain Center at | UNIX DEVELOPER [address] | | | | | [facility] | Ave [place], [place] | | | | | [address] | [address] | | | | | Mailcode: CH15P | [phone] | | | | | [place] for [facility] | | | | | | and Healing, | | | | | | | | | | | | [place], [place] | | | | | | [address] | | | | | | [phone] | | | +--------+ + + + [...]
--- OUTSIDE RECORDS SUMMARY | ~2019-08-12 | XMS | Encounter Summary ---
Demographics + + + | Address | [address] | | | [place] [address] | + + + | Home Phone [...] | 2015 | Encounter | Center at [facility] [address] | MD Melissa | | | | | [address] | | | | | | Mailcode: Center | | | | | | for Health and | | | | | | [facility], Building 2 | | | | | | [place], [place] | | | | | | [address] | | | | | | [phone] | | | +--------+ + + + [...]
--- OUTSIDE RECORDS SUMMARY | ~2019-08-12 | XMS | Encounter Summary ---
Demographics + + + | Address | [address] | | | [place] [address] | + + + | Home Phone [...] Team Providers + +------+ + | Care Intensive Care Medicine Specialist Name | Role | Phone [...] | | Pain Center at | [address] | | | | | [facility] | [address] [place] [address] | | | | | [address] | [place], [place] | | | | | Mailcode: CH15P | [address] | | | | | [facility] | [phone] | | | | | and Healing, | | | | | | [facility] | | | | | | [place], [place] | | | | | | [address] | | | | | | [phone] | | | +--------+ + + + [...]
--- OUTSIDE RECORDS SUMMARY | ~2019-08-12 | XMS | Encounter Summary ---
Demographics + + + | Address | [address] | | | [place] [address] | + + + | Home Phone [...] Providers + +------+ + | Care Air Quality Engineer Name | Role | Phone | + +------+ + | Justo Vazquez MD | PCP | | + +------+ + Encounter Details +--------+ + + + + | Date | Type | Department | Care Team | Description | +--------+ + + + + | 03/18/ | Telephone | Digestive Health | Kenny Gaspar MD | | | 2017 | | [place] at [facility] [address] | [address] | | | | | [address] | Giuliana Maldonado [place], | | | | | Mailcode: [place] | [place] [address] | | | | | [facility] and | [phone] | | | | | [facility], [facility] 2 | | | | | | [place], [place] | | | | | | [address] | | | | | | [phone] | | | +--------+ + + + [...]
--- OUTSIDE RECORDS SUMMARY | ~2019-08-12 | XMS | Encounter Summary ---
Demographics + + + | Address | [address] | | | [place] [address] | + + + | Home Phone [...] Team Providers + +------+ + | Care Scrap Sorter Name | Role | Phone | [...] (Concern for DRG | | | | [facility] | [address] [place], | trial wound | | | | [address] | [place] [address] | infection) | | | | Mailcode: CH15P | [phone] | | | | | [facility] | | | | | | and Healing, | | | | | | | | | | | | Floor [place], [place] | | | | | | [address] | | | | | | [phone] | | | +--------+ + + + [...]
--- OUTSIDE RECORDS SUMMARY | ~2019-08-12 | XMS | Encounter Summary ---
Demographics + + + | Address | [address] | | | [place] [address] | + + + | Home Phone [...] Team Providers + +------+ + | Care Tiger Machine Operator Name | Role | Phone [...] 2017 | | Pain Center at | CITY ROUTE DRIVER [address] | | | | | [facility] | Ave [place], [place] | | | | | [address] | [address] | | | | | Mailcode: CH15P | [phone] | | | | | [place] for [facility] | | | | | | and Healing, | | | | | | | | | | | | [place], [place] | | | | | | [address] | | | | | | [phone] | | | +--------+ + + + [...]
--- OUTSIDE RECORDS SUMMARY | ~2019-08-12 | XMS | Encounter Summary ---
Demographics + + + | Address | [address] | | | [place] [address] | + + + | Home Phone [...] Team Providers + +------+ + | Care Hat Lining Blocker Name | Role | Phone | + +------+ + | Justo Vazquez MD | PCP | | + +------+ + Encounter Details +--------+--------+ + + + | Date | Type | Department | Care Team | Description | +--------+--------+ + + + | 12/26/ | Refill | [facility] | Alex Sanchez, | | | 2019 | | Pain Center at | ,PhD [address] | | | | | [facility] | [address] | | | | | [address] | [place], [place] | | | | | Mailcode: CH15P | [address] | | | | | [place] for [facility] | [phone] | | | | | and Healing, | | | | | | | | | | | | [place], [place] | | | | | | [address] | | | | | | [phone] | | | +--------+--------+ + + + [...]
--- OUTSIDE RECORDS SUMMARY | ~2019-08-12 | XMS | Encounter Summary ---
Demographics + + + | Address | [address] | | | [place] [address] | + + + | Home Phone [...] ogy | | Ava Torres, | [address] | | | | | Constipation | MD [address] | [address] | | | | | , | [address] | Mailcode: | | | | | unspecified | Giuliana Maldonado | OC2L Center | | | | | constipation | [facility] [place] | for Health | | | | | type | [address] | and Healing, | | | | | Procedures | | Building 2 | | | | | CONSULT TO | | [place], [place] | | | | | GI PROCEDURE | | [address] | | | | | UNIT: | | Phone: | | | | | ANORECTAL | | [phone] | | | | | MANOMETRY | | Fax: | | | | | [place] ANAL | | [phone] | | | | | PRESSURE | [...] | Encounter | Procedural Unit at | [facility] | | | | | [facility] | Road [place], [place] | | | | | [address] | [address] | | | | | Mailcode: OC2L | | | | | | [facility] | | | | | | and Healing, | | | | | | Building 2 | | | | | | [place], [place] | | | | | | [address] | | | | | | [phone] | | | +--------+ + + + [...]
--- OUTSIDE RECORDS SUMMARY | ~2019-08-12 | XMS | Encounter Summary ---
Demographics + + + | Address | [address] | | | [place] [address] | + + + | Home Phone [...] Team Providers + +------+ + | Care Liquor Maker Name | Role | Phone | [...] | 10/21/ | Hospital | [place] [address] | [place], | | | 2015 - | Encounter | [facility] Gu[facility]ermo | MD Tala [address] | | | | | [address] [place] [address] | [facility] Gu[facility]ermo | | | 10/25/ | | [place], [place] | [place], [place] | | | 2014 | | [address] | [address] | | | | | [phone] | [phone] | | | | | | | | | | | | Clifton Childers | | | | | | MD Nhan [address] [facility] | | | | | | [place]don[place] | | | | | | [place], [place] | | | | | | [address] | | | | | | [phone] | | | | | | | [...] child. Followed by Dr. Katy berrios at [facility] in [place], [place]. Has been on a stable regimen for [...] agreeable with our plans. Clifton Childers MD Client Relations Representative Division of Hospital Medicine Teaching Attending I [...] child. Followed by Dr. Katy berrios at [facility] in [place], [place], has been on a stable regimen [...] and plan. Lolita Ma MD, MPH Pager #[phone] PGY-1, Anesthesiology [facility] Associated [...] agreeable with our plans. Clifton Childers MD Client Relations Representative Division of [facility] Medicine Teaching Attending I spent 45 minutes [...] child. Followed by Dr. Katy berrios at [facility] in [place], [place], has been on a stable regimen for [...] and plan. Lolita Ma MD, MPH Pager #[phone] PGY-1, Anesthesiology [facility] Associated attestation - Clifton Childers MD - 10/23/2015 4:10 PM PSTGeneral Medicine Attending Progress Note Author: Clifton Childers MD Hospital Day # 2 PCP: BJORN Villalpando I personally interviewed the patient, performed the bocanegra elements of the physical examinatio n, and personally formulated the assessment and plan with Dr Moreau and Dr Ma. Please s [facility] progress note for additional details; notable exceptions [...] would like the patient to establish in jail counseling and/or CBT as an outpatient if willing. Patient/Family Goals & Expectations: Above problems discussed with the patient who understands and is agreeable with our plans. Clifton Childers MD Client Relations Representative Division of Hospital Medicine Teaching Attending I [...] good coping mechanism Heme/Lymphatic: negative Endocrine: negative Catalyst Plant Supervisor: negative Past Medical History: History of chronic [...] for he r CRPS in the pastm [facility] pharmacy does not carry this so we are trying to arrange for her to take her home medication via pharmacy approval 5. APS will sign off but please call with questions/concerns Aba Dorman MD, PGY 3 Clay Machine Operator [place]-2 APS Pager: [phone] BILLING INFORMATION Deferred to attending physician. Ms. [...] up at this point. Please contact APS (#[id number]) if further assistance is needed. Ulices Lopez MD BILLING INFORMATION [facility] DEPARTMENT: [phone] Place of Service:- Inpatient Date of Service: 10/23/2015 CSN: [id number] Suggested Modifier: GC - Resident Involved Suggested CPT: 68040 - Follow up visit (includes PNB) - [...] today recd call from Dr. Madrid from [facility]. She has known pt for many yea rs and suggested ketamine and propofol gtt. Updated her on APS recommendations. She will hav e her office fax her clinic records to us. Pt was seen with Dr. Childers. Milton Moreau MD PGY-3, Internal Medicine Pager [phone] ozora, Pro edwards RN - 10/22/2015 10:06 AM PSTActing as scribe for the UR Committee Physician named below. The primary medical team for this patient and the [facility] UR Committee have agreed after furth er study that an inpatient admission was not medically necessary. This hospital stay is con verted to an outpatient stay through use of Medicare Condition Code 44. The patient was not ified of this change in writing. The providers involved in this decision were: For patient s primary medical team: Melissa Childers MD For [facility] UR Committee: Kerry HARRIS RN CM ACM [...] | | | LABORATORY | | | TRINIDADIAN | | | SERVICES, | | | [...] | + + + + + | [facility] | [address] | [place] [address] | | | SERVICES, LILLIAN | GUILLERMO [...] + + + + + | [facility] | [address] | [place] [address] | | | SERVICES, CORE | GUILLERMO [...] | | | LABORATORY | | | TRINIDADIAN | | | SERVICES, | | | [...] the MDRD equation recommended by the | [facility] | | National Kidney Disease Education Program. [...] + + + + + | [facility] | [address] | [place] [address] | | | SERVICES, CORE | GUILLERMO [...] | [address] | [place] [address] | | | SERVICES, CORE | PARK [...] | [address] | [place] [address] | | | SERVICES, CORE | PARK [...] ranges for full anticoagulation: INR for | [facility] | | Venous Thromboembolism (2.0 - 3.0) INR INR | LABORATORY | | for most patients with mech. valves (2.5 - 3.5) INR | LILLIAN CROSS | + + + + + + + + | Performing | Address | City/State/Zipcode | Phone Number | | Organization | | | | + + + + + | [facility] | [address] | [place] [address] | | | SERVICESLILLIAN | [address] [...] | [address] | [place] [address] | | | SERVICES, CORE | GUILLERMO [...] | | | LABORATORY | | | TRINIDADIAN | | | SERVICES, | | | [...] + + + + + | [facility] | [address] | [place] [address] | | | LILLIAN CROSS | GUILLERMO [...] | | | 1 dose, [facility] 10/23/15 at 1245 | | PM PST | | | | + +-------+ +-------+---+---+ +---+---+ | | | +---+---+ + +-------+ +--------+---+---+ | ibuprofen (MOTRIN) tablet 600 | Given | 10/25/20 | 600 mg | | | | mg 600 mg, oral, EVERY 6 HOURS, | | 15 8:05 | | | | | First dose on [facility] 10/23/15 at | | AM PST [...] | | | 1 dose, [facility] 10/23/15 at 1245 | | PM [...]
--- OUTSIDE RECORDS SUMMARY | ~2019-08-12 | XMS | Encounter Summary ---
Demographics + + + | Address | [address] | | | [place] [address] | + + + | Home Phone [...] Team Providers + +------+ + | Care Protective Services Social Worker Name | Role | Phone [...] | | Pain Center at | ,PhD [address] | | | | | [facility] | [address] | | | | | [address] | [place], [place] | | | | | Mailcode: CH15P | [address] | | | | | [facility] | [phone] | | | | | and Martina, | | | | | | [facility] | | | | | | [place], [place] | | | | | | [address] | | | | | | [phone] | | | +--------+ + + + [...]
--- OUTSIDE RECORDS SUMMARY | ~2019-08-12 | XMS | Clinical Summary ---
Demographics + + + | Address | [address] | | | [place] [address] | + + + | Home Phone [...] | Author | [facility] | + + + | Organization | [facility] | + + + | Address | Unknown | + + + | Phone | Unavailable | + + + Support + + +---------+ + | Name | Relationship | Address | Phone | + + +---------+ + | Patricia Colin | ECON | Unknown | | + + +---------+ + Care Team Providers + +------+ + | Care Shoe Parts Caser Name | Role | Phone | + +------+ + | Justo Vazquez MD | PCP | | + +------+ + Source Comments KEVIN is fully live on both [facility] Amb[facility] and [facility] InPatient.[facility] Allergies + + + + [...] + | Overview: Patient has an implanted [employer] spinal | | cord stimulator. Model#: [id number]. Contact [phone] for | | technical assistance.Contraindications:Sources of strong [...] + + + + | 06/08/ | Human Resources Trainer | Pain Management | Alex Sanchez, | [...] | Right: | BARD | | | [id number] | | Port-10/05/2016Implanted: | | Chest | | | | 0 / | | 10/05/2016 by Obdulio Simpson, | | | | | | /REAU2 | | MD (Quantity not on file) | | | | | | 204 | + +------+--------+ +--------+--------+--------+ + + | Description:Not Power | | Injectable, Progress record | | faxed from [facility] | | [facility] in [place], [place], | | [facility] RN | + + + +---+---+ +---+--------+--------+ | Slimtip DrgImplanted: Qty: 1 | | | [address] [facility] | | 01/06/ | [id number] | | on 12/05/2018 by Daniel, | | | MEDICAL [place] | | 2020 | 0-50A | | Alex Alba MD,PhD at [facility] | | | | | | /[id number] | | INPATIENT REV LOC | | | | | | 371 / | + +---+---+ +---+--------+--------+ + + | Description: | | Level 4 | + + + +---+---+ +---+---+--------+ | Slimtip DrgImplanted: Qty: 1 | | | [address] [facility]ICA | | | [id number] | | on 12/05/2018 by Daniel, | | | MEDICAL [place] | | | 0-50A | | Alex Alba MD,PhD at [facility] | | | | | | /[id number] | | INPATIENT REV LOC | | [...] / | | Alex Alba MD,PhD at [facility] | | | | | [...] + +--------+ + + + | [place] CHIROPRAC | Routin | 07/10/2019 | Sacroiliac [...] | MEDICA | xxxxxxxxxxx | 07/15/20 | [phone] | [address] | Medica | | | RE A & | | 15-Pre | 1 | [address] | re | | | B | | sent | | [place] | | | | | | | | [address] | | + +--------+ +--------+ + +--------+ | HOT PUNCH PRESS OPERATOR MEDICAID | HOT PUNCH PRESS OPERATOR | xxxxxxxx | 11/14/19 | | [...] | 1989 | [phone] | [place] [address] | | | evita | | | [...]
--- OUTSIDE RECORDS SUMMARY | ~2019-08-12 | XMS | Encounter Summary ---
Demographics + + + | Address | [address] | | | [place] [address] | + + + | Home Phone [...] Team Providers + +------+ + | Care Postal Carrier Name | Role | Phone | [...] | | Pain | Complex | Ilene, DIGITAL ARCHIVIST | Dawnana M, | | | | Management | regional | [address] | [address] | | | | | pain | [address] | [address] | | | | | syndrome | [place], [place] | [place], [place] | | | | | type 1 of | [address] | [address] Phone: | | | | | left lower | Phone: | [phone] | | | | | extremity | [phone] | Fax: | | | | | Intractable | Fax: | [phone] | | | | | cyclical | [phone] | | | | | | vomiting [...] Pain Medicine | Diagnoses | Chasity, | Picker/Puller Chh1 | | | | / Pain | Abdominal | MD Kenny | [address] | | | | Management | pain, | [address] | Ave | | | | | unspecified | [facility] | Mailcode: | | | | | location | Rd | CH15P Center | | | | | Procedures | [place], [place] | for Health | | | | | CONSULT TO | [address] | and Healing, | | | | | PAIN | Phone: | Building | | | | | MANAGEMENT | [phone] | 1,15th Floor | | | | | | Fax: | [place], [place] | | | | | | [phone] | [address] | | | | | | | Phone: | | | | | | | [phone] | | | | | | | Fax: | | | | | | | [phone] | +--------+--------+ + + + + Encounter Details +--------+---------+ + + + | Date | Type | Department | Care Team | Description | +--------+---------+ + + + | 04/25/ | Office | [facility] | Ilene Bright, | Abdominal pain, | | 2017 | Visit | Pain Center at | DIGITAL ARCHIVIST [address] | unspecified location | | | | [facility] | Ave [place], [place] | (Primary Dx); | | | | [address] | [address] | Complex regional | | | | Mailcode: CH15P | [phone] | pain syndrome type 1 | | | | [place] for [facility] | | of left lower | | | | and Healing, | | extremity; | | | | Building , | | Intractable cyclical | | | | Floor [place], [place] | | vomiting with | | | | [address] | | nausea; | | | | [phone] | | Constipation, | | | | [...] Freddie Guadalupe MD [email or web address] Ilene Childs DNP, DIGITAL ARCHIVIST-C [facility] [address] [place] [address] documented in this encounter Progress Notes Ilene Bright FNP - 04/25/2017 1:35 PM PDTFormatting of this note might be different fr om the original. Date: 04/25/2017 was referred for pain management consultation by Kenny Gaspar MD [address] [place] [phone] Reason for consult: abdominal pain Chief Complaint Patient presents with Abdominal pain Back pain History of Present Illness: Traice Farah is a 26 year old female with a history of depression, complex regional pain syndrome (left lower extremity) for this she follows with a neurologist at [facility] in [facility]. She has been stable on [...] (works better) Just started her on Celebrex (ad terminal makeup operator option) Intranasal ketamine Lamotrigine Memantine Ibuprofen Cymbalta 20 mg BID Cyclobenzaprine Her nonmedication treatment has not included acupuncture, etc due to limited income. She feels that the most effective treatments include: medication (toradol). lives in [place], [place] alone and with her children. She receives disability. does not have specific goals for today's appointment. [facility] QUESTIONNAIRE BRIEF PAIN 04/24/2017 Please rate [...] has interfered with your sleep : 8 [facility] New Patient Questionnaire Responses 04/24/2017 What [...] or to get rid of a hangover (eye-program director scouting)? No Do you drink alcohol to decrease [...] History Social History Narrative Single. Goes to [employer] with a light load. Has been working at [employer], can' t work on Rosalind. Has roommates. Allergies Allergen Reactions Morphine Anaphylaxis [...] by physician. Concentration is 150mg/mL. Compounded by [facility] ) LAMOTRIGINE 200 MG TABLET Take [...] ENTEROGRAPHY ABDOMEN AND PELVIS WWO CONTRAST Order: [id number] Performed: 01/31/2017 4:34 PM Status: Final result [...] 3:50 PM X-RAY ABDOMEN 1 VIEW Order: [id number] Performed: 03/19/2017 6:52 AM Status: Final result [...] and summary of old medical records (source: [employer]), as summarized in the body of the [...] possible opioid-sparing effects (Stevie Paulino et al.C [employer], (8):165-17, 2007) and evidence that it can work [...] The Fibro Manual, by Freddie Guadalupe MD [email or web address] Central sensitization Ilene Childs DNP, DIGITAL ARCHIVIST-C [facility] [address] [place] [address] Display Progress Note in Scil Proteinshart: No documented in this e ncounter Plan [...]
--- OUTSIDE RECORDS SUMMARY | ~2019-08-12 | XMS | Encounter Summary ---
Demographics + + + | Address | [address] | | | [place] [address] | + + + | Home Phone [...] Providers + +------+ + | Care Application Performance Engineer Name | Role | Phone | + +------+ + | Justo Vazquez MD | PCP | | + +------+ + Encounter Details +--------+ + + + + | Date | Type | Department | Care Team | Description | +--------+ + + + + | 12/05/ | Pharmacy | [facility] | | | | 2019 | Visit | & Healing Pharmacy | | | | | | [address] | | | | | | Mailcode: [place] | | | | | | [facility] and | | | | | | Healing, Building [address] | | | | | | [place], [place] | | | | | | [address] | | | | | | [phone] | | | +--------+ + + + [...]
--- OUTSIDE RECORDS SUMMARY | ~2019-08-12 | XMS | Encounter Summary ---
Demographics + + + | Address | [address] | | | [place] [address] | + + + | Home Phone [...] Team Providers + +------+ + | Care Emt/Paramedic Name | Role | Phone | + [...] + + | 01/11/ | Telephone | [facility] Comprehensive | Alex Sanchez, | Referral To | | 2018 | | Pain Center at | ,PhD [address] | Orthopedics (discuss | | | | [facility] | [address] | ortho appointment) | | | | [address] | [place], [place] | | | | | Mailcode: CH15 | [address] | | | | | [facility] | [phone] | | | | | and Healing, | | | | | | | | | | | | [facility] [place] | | | | | | [address] | | | | | | [phone] | | | +--------+ + + + [...]
--- OUTSIDE RECORDS SUMMARY | ~2019-08-12 | XMS | Encounter Summary ---
Demographics + + + | Address | [address] | | | [place] [address] | + + + | Home Phone [...] Providers + +------+ + | Care Lead Mobile Developer Name | Role | Phone [...] + + | 02/21/ | Telephone | [facility] | Alex Sanchez, | Medication Refill | | 2017 | | Pain Center at | ,PhD [address] | Request (ketamine- | | | | [facility] | [address] | mail script to | | | | [address] | [place], [place] | patient) | | | | Mailcode: 15 | [address] | | | | | [facility] | [phone] | | | | | and Martina, | | | | | | | | | | | | Floor [place], [place] | | | | | | [address] | | | | | | [phone] | | | +--------+ + + + [...]
--- OUTSIDE RECORDS SUMMARY | ~2019-08-12 | XMS | Encounter Summary ---
Demographics + + + | Address | [address] | | | [place] [address] | + + + | Home Phone [...] Providers + +------+ + | Care Hr Shared Services Consultant Name | Role | Phone | + +------+ + | Justo Vazquez MD | PCP | | + +------+ + Encounter Details +--------+ + + + + | Date | Type | Department | Care Team | Description | +--------+ + + + + | 12/07/ | Pharmacy | [facility] | | | | 2019 | Visit | & Healing Pharmacy | | | | | | [address] | | | | | | Mailcode: [place] | | | | | | [facility] and | | | | | | Healing, Building [address] | | | | | | [place], [place] | | | | | | [address] | | | | | | [phone] | | | +--------+ + + + [...]
--- OUTSIDE RECORDS SUMMARY | ~2019-08-12 | XMS | Encounter Summary ---
Demographics + + + | Address | [address] | | | [place] [address] | + + + | Home Phone [...] Team Providers + +------+ + | Care Clothing Manager Name | Role | Phone | + +------+ + | Justo Vazquez MD | PCP | | + +------+ + Encounter Details +--------+ + + + + | Date | Type | Department | Care Team | Description | +--------+ + + + + | 06/07/ | Telephone | [facility] | Alex Sanchez, | | | 2019 | | Pain Center at | ,PhD [address] | | | | | [facility] | [facility] [address] | | | | | [address] | [place], [place] | | | | | Mailcode: CH15P | [address] | | | | | [place] for [facility] | [phone] | | | | | and Healing, | | | | | | | | | | | | Floor [facility] [place] | | | | | | [address] | | | | | | [phone] | | | +--------+ + + + [...]
--- OUTSIDE RECORDS SUMMARY | ~2019-08-12 | XMS | Encounter Summary ---
Demographics + + + | Address | [address] | | | [place] [address] | + + + | Home Phone [...] Team Providers + +------+ + | Care Rayon Tester Name | Role | Phone | [...] | | 2016 | | Center at [facility] [address] | MD Melissa | | | | | [address] | | | | | | Mailcode: Center | | | | | | for Health and | | | | | | Healing, Building 2 | | | | | | [place], [place] | | | | | | [address] | | | | | | [phone] | | | +--------+ + + + [...]
--- OUTSIDE RECORDS SUMMARY | ~2019-08-12 | XMS | Encounter Summary ---
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 Surgery check-in location: [facility] Day Stay - [place] for [facility] and Healing, 4th floor Surgery [...] it is after office hours, call the [facility] erector operator at [phone] and ask them to page him or h er. documented in this encounter Progress Notes Catie Smart NP - 11/27/2018 2:05 PM PST PREOPERATIVE CONSULT NOTE Author: Catie Smart NP Referring Physician: Alex Sanchez MD Primary Care Provider: Justo Vazquez MD Reason for Consult: Preoperative evaluation and risk assessment Proposed Procedure/Date: implant SCS; 12/05/2018 Proposed Procedure Location: [facility] HISTORY OF PRESENT ILLNESS: Tracie Farah is [...] renal failure no electrolyte abnormalities no dialysis Urology/Psychological Operations: Interstitial cystitis LMP: irreg bleeding, ~11/14/2018, IUD [...] soln Take as directed [facility]- 2 gallon bowel prep polyethylene glycol [...] is a lso currently scheduled at [facility] [place] and is meeting inclusion criteria for [...] to this patient's care. Catie Smart NP [facility] P[facility] PREOPERATIVE MEDICINE CLINIC AT [facility] 4TH FLOOR [address] [facility] [address] I advised the patient regarding NPO [...]
--- OUTSIDE RECORDS SUMMARY | ~2019-08-12 | XMS | Encounter Summary ---
Demographics + + + | Address | [address] | | | [place] [address] | + + + | Home Phone [...] Team Providers + +------+ + | Care Showplace Manager Name | Role | Phone | [...] at [facility] [address] | MD [address] | Marker instructions) | | | | [address] | | | | | | Mailcode: Center | | | | | | for Health and | | | | | | [facility] [place] [address] | | | | | | [place], [place] | | | | | | [address] | | | | | | [phone] | | | +--------+ + + + [...]
--- OUTSIDE RECORDS SUMMARY | ~2019-08-12 | XMS | Encounter Summary ---
Demographics + + + | Address | [address] | | | [place] [address] | + + + | Home Phone [...] Providers + +------+ + | Care Manager Banquet Name | Role | Phone | + +------+ + | Allegra Chaudhary | PCP | Unavailable | + +------+ + Encounter Details +--------+ + + + + | Date | Type | Department | Care Team | Description | +--------+ + + + + | 10/21/ | Telephone | [facility] | Antony Beltre, | | | 2014 | | [place] at [facility] [address] | [address] | | | | | [address] | [place] [address] | | | | | Mailcode: Center | [phone] | | | | | for Health and | | | | | | [address] | | | | | | [place], [place] | | | | | | [address] | | | | | | [phone] | | | +--------+ + + + [...]
--- OUTSIDE RECORDS SUMMARY | ~2019-08-12 | XMS | Encounter Summary ---
Demographics + + + | Address | [address] | | | [place] [address] | + + + | Home Phone [...] + +------+ + | Care Clinical Project Assistant Name | Role | Phone | [...] | MD [address] [facility] | | | | | [facility] | [facility] [id number] | | | | | [address] | [place], [place] | | | | | Mailcode: CH15P | [address] | | | | | [place] for [facility] | [phone] | | | | | and Martina, | | | | | | | | | | | | Floor [place], [place] | | | | | | [address] | | | | | | [phone] | | | +--------+ + + + [...]
--- OUTSIDE RECORDS SUMMARY | ~2019-08-12 | XMS | Encounter Summary ---
Demographics + + + | Address | [address] | | | [place] [address] | + + + | Home Phone [...] Providers + +------+ + | Care Student Name | Role | Phone | + +------+ + | Justo Vazquez MD | PCP | | + +------+ + Encounter Details +--------+ + + + + | Date | Type | Department | Care Team | Description | +--------+ + + + + | 07/28/ | Documentati | [facility] | Ilene Bright, | | | 2017 | on | Pain Center at | SALON STYLIST [address] | | | | | [facility] | Ave [place], [place] | | | | | [address] | [address] | | | | | Mailcode: CH15P | [phone] | | | | | [facility] | | | | | | and Healing, | | | | | | | | | | | | [place], [place] | | | | | | [address] | | | | | | [phone] | | | +--------+ + + + [...]
--- OUTSIDE RECORDS SUMMARY | ~2019-08-12 | XMS | Encounter Summary ---
Demographics + + + | Address | [address] | | | [place] [address] | + + + | Home Phone [...] + +------+ + | Care Front End Developer Designer Name | Role | Phone | [...] + + | 09/26/ | Telephone | [facility] Comprehensive | Aleta Rebollar MD [address] | Nausea | | 2018 | | Pain Center at | [address] Sl[address] | | | | | [facility] | [place], [place] | | | | | [address] | [address] | | | | | Mailcode: CH15P | [phone] | | | | | [facility] | | | | | | [address], | | | | | | Building | | | | | | [place], [place] | | | | | | [address] | | | | | | [phone] | | | +--------+ + + + [...]
--- OUTSIDE RECORDS SUMMARY | ~2019-08-12 | XMS | Encounter Summary ---
Demographics + + + | Address | [address] | | | [place] [address] | + + + | Home Phone [...] Providers + +------+ + | Care Maintenance Porter Name | Role | Phone | + [...] | | | | regional | ,PhD [address] | | | | | | pain | [address] | | | | | | syndrome | [address] | | | | | | type 1 of | Rd | | | | | | left lower | [place], [place] | | | | | | extremity | [address] | | | | | | Procedures | Phone: | | | | | | PHYSICAL | [phone] | | | | | | THERAPY | Fax: | | | | | | REFERRAL | [phone] | | +--------+--------+ + + + + Encounter Details +--------+ + + + + | Date | Type | Department | Care Team | Description | +--------+ + + + + | 01/22/ | Telephone | [facility] Ilene | Alex Sanchez, | | | 2018 | | Pain Center at | ,PhD [address] | | | | | [facility] | [facility] | | | | | [address] | [place], [place] | | | | | Mailcode: CH15P | [address] | | | | | [facility] | [phone] | | | | | and Healing, | | | | | | | | | | | | [place], [place] | | | | | | [address] | | | | | | [phone] | | | +--------+ + + + [...]
--- OUTSIDE RECORDS SUMMARY | ~2019-08-12 | XMS | Encounter Summary ---
Demographics + + + | Address | [address] | | | [place] [address] | + + + | Home Phone [...] Providers + +------+ + | Care Machinist Linotype Name | Role | Phone | + [...] [place] | | | | | | [address] | | | +--------+ + + + [...]
--- OUTSIDE RECORDS SUMMARY | ~2019-08-12 | XMS | Encounter Summary ---
Demographics + + + | Address | [address] | | | [place] [address] | + + + | Home Phone [...] Providers + +------+ + | Care Youth Corrections Officer Name | Role | Phone | + +------+ + | Justo Vazquez MD | PCP | | + +------+ + Encounter Details +--------+ + + + + | Date | Type | Department | Care Team | Description | +--------+ + + + + | 12/12/ | Telephone | [facility] | Alex Sanchez, | | | 2019 | | Pain Center at | ,PhD [address] | | | | | [facility] | [facility] [address] | | | | | [address] | [place], [place] | | | | | Mailcode: CH15P | [address] | | | | | [place] for [facility] | [phone] | | | | | and Healing, | | | | | | | | | | | | Floor Center [place], [place] | | | | | | [address] | | | | | | [phone] | | | +--------+ + + + [...]
--- OUTSIDE RECORDS SUMMARY | ~2019-08-12 | XMS | Encounter Summary ---
Demographics + + + | Address | [address] | | | [place] [address] | + + + | Home Phone [...] Providers + +------+ + | Care Supervisor Hide House Name | Role | Phone | + +------+ + | Justo Vazquez MD | PCP | | + +------+ + Encounter Details +--------+ + + + + | Date | Type | Department | Care Team | Description | +--------+ + + + + | 07/30/ | Telephone | [facility] | Alex Sanchez, | | | 2019 | | Pain Center at | ,PhD [address] | | | | | [facility] | [facility] [address] | | | | | [address] | [place], [place] | | | | | Mailcode: CH15P | [address] | | | | | [place] for [facility] | [phone] | | | | | and Healing, | | | | | | | | | | | | Floor [place], [place] | | | | | | [address] | | | | | | [phone] | | | +--------+ + + + [...]
--- OUTSIDE RECORDS SUMMARY | ~2019-08-12 | XMS | Encounter Summary ---
Demographics + + + | Address | [address] | | | [place] [address] | + + + | Home Phone [...] Team Providers + +------+ + | Care Commissions Specialist Name | Role | Phone | [...] Pain Medicine | Diagnoses | Chasity, | Hand Developer Chh1 | | | | / Pain | Abdominal | MD Kenny | [address] | | | | Management | pain, | [address] | Ave | | | | | unspecified | [facility] | Mailcode: | | | | | location | Rd | CH15P Center | | | | | Procedures | [place], [place] | for Health | | | | | CONSULT TO | [address] | and Healing, | | | | | PAIN | Phone: | Building | | | | | MANAGEMENT | [phone] | 1,15th Floor | | | | | | Fax: | [place], [place] | | | | | | [phone] | [address] | | | | | | | Phone: | | | | | | | [phone] | | | | | | | Fax: | | | | | | | [phone] | +--------+--------+ + + + + Encounter Details +--------+---------+ + + + | Date | Type | Department | Care Team | Description | +--------+---------+ + + + | 07/11/ | Office | [facility] | Ilene Bright, | Pain of upper | | 2017 | Visit | Pain Center at | ELEMENTARY SCHOOL COUNSELOR [address] | abdomen (Primary | | | | [place] | Ave [place], [place] | Dx); Intractable | | | | [address] | [address] | cyclical vomiting | | | | Mailcode: CH15P | [phone] | with nausea; | | | | [place] for [facility] | | Irritable bowel | | | | and Healing, | | syndrome with | | | | Building | | constipation; | | | | Floor [place], [place] | | Complex regional | | | | [address] | | pain syndrome type 1 | | | | [phone] | | of left lower | | [...] and determine next steps. [place] Childs DNP, ELEMENTARY SCHOOL COUNSELOR-C Adult Pain Service /[facility] [address] [place] [address] documented in this encounter Progress Notes [place] Bright FNP - 07/11/2017 1:35 PM PDTFormatting of this note might be different fr om the original. [facility] Return Visit Date: 07/11/2017 Chief Complaint Patient presents with Abdominal pain Back pain History of Present Illness: Tracie Farah is a 27 year old female, whose last appoi ntment at the [facility] was April 25, 2017, for a clinic visit. At that time our plans were: Recommendation/Plan: #1 Continue Flexeril #2 Try Pregabalin (Will send note to Justo Vazquez MD) #[address] Santacruz (pain psychology) #4 Follow up with me after Dr. Sanatcruz #5 May consider injection into scar in [...] pain complain ts on this visit. Ms. Faarh reports that [...] is in the process of arranging home [facility] for Tracie. She has also [...] She mentions that her primary care provi piage is planning to increasing her dose. She [...] her abdominal pain an d associated symptoms. [facility] QUESTIONNAIRE BRIEF PAIN 07/11/2017 Please rate [...] has interfered with your sleep : 5 REAL ESTATE ASSOCIATE Questionnaire Follow-up Patient 07/11/2017 Please describe the [...] Trial spinal cord stimulator leads 08/02/2012 [facility], Surgeon: Janak Riojas MD Cholecystectomy Appendectomy [...] History Social History Narrative Single. Goes to [employer] with a light load. Has been working at [employer], can' t work on [employer]. Has roommates. Allergies Allergen Reactions Morphine Anaphylaxis [...] by physician. Concentration is 150mg/mL. Compounded by [facility] ) LAMOTRIGINE 200 MG TABLET Take [...] [facility] Dig[facility] Health- 2 gallon bowel prep [...] and summary of old medical records (source: [employer]), as summarized in the body of the [...] I, Shantel [place], am functioning as a coroner/medical examiner for Ilene Childs DNP, TERESA-C I have reviewed and verified the above scribed note of my visit with this patient as record ed by Shantel [place]. [place] Childs DNP, ELEMENTARY SCHOOL COUNSELOR-C Adult Pain Service /[facility] [address] [place] [address] Addendum: I paged Dr. Les Gaspar. He was out of the clinic, I spoke with the covering provider and dianelys Hodges's request for food allergy testing. Since Tracie thinks her pain and vomiting may b e triggered by gluten, covering provided ordered appropriate workup, which I communicated to Tracie and the the lab in [place], [place]. She will followup with me and GI once these results are available. [place] Childs DNP, ELEMENTARY SCHOOL COUNSELOR-C Adult Pain Service [facility] [address] [place] [address] documented in this e ncounter Plan of [...]
--- OUTSIDE RECORDS SUMMARY | ~2019-08-12 | XMS | Encounter Summary ---
Demographics + + + | Address | [address] | | | [place] [address] | + + + | Home Phone [...] Team Providers + +------+ + | Care Bulk Plant Operator Name | Role | Phone [...] Rd | | | | | | [place], [place] | | | | | | [address] | | | +--------+ + + + [...]
--- OUTSIDE RECORDS SUMMARY | ~2019-08-12 | XMS | Encounter Summary ---
Demographics + + + | Address | [address] | | | [place] [address] | + + + | Home Phone [...] Providers + +------+ + | Care Boat Outfitting Supervisor Name | Role | Phone | + +------+ + | Justo Vazquez MD | PCP | | + +------+ + Encounter Details +--------+ + + + + | Date | Type | Department | Care Team | Description | +--------+ + + + + | 04/23/ | Pharmacy | [facility] | | | | 2019 | Visit | & Healing Pharmacy | | | | | | [address] | | | | | | Mailcode: [place] | | | | | | [facility] and | | | | | | Healing, Building [address] | | | | | | [place], [place] | | | | | | [address] | | | | | | [phone] | | | +--------+ + + + [...]
--- OUTSIDE RECORDS SUMMARY | ~2019-08-12 | XMS | Encounter Summary ---
Demographics + + + | Address | [address] | | | [place] [address] | + + + | Home Phone [...] Team Providers + +------+ + | Care Ball Points Inspector Name | Role | Phone | + +------+ + | Justo Vazquez MD | PCP | | + +------+ + Encounter Details +--------+ + + + + | Date | Type | Department | Care Team | Description | +--------+ + + + + | 06/07/ | Telephone | [facility] | Alex Sanchez, | | | 2019 | | Pain Center at | ,PhD [address] | | | | | [facility] | [facility] [address] | | | | | [address] | [place], [place] | | | | | Mailcode: CH15P | [address] | | | | | [place] for [facility] | [phone] | | | | | and Healing, | | | | | | | | | | | | Floor [facility] [place] | | | | | | [address] | | | | | | [phone] | | | +--------+ + + + [...]
--- OUTSIDE RECORDS SUMMARY | ~2019-08-12 | XMS | Encounter Summary ---
Demographics + + + | Address | [address] | | | [place] [address] | + + + | Home Phone [...] + +------+ + | Care Quality Assurance Assessor Name | Role | Phone | [...] | | Spasticity | [address] | [place], [place] | | | | | Procedures | [place], [place] | [address] | | | | | CONSULT TO | [address] | Phone: | | | | | PAIN | Phone: | [phone] | | | | | MANAGEMENT | [phone] | Fax: | | | | | | Fax: | [phone] | | | | | | [phone] | | +--------+---------+ + + + + [...] | | MD Celia | MD Brendan [address] | | | | | Fibromyalgia | [address] | [address] | | | | | Spasticity | [address] | [address] | | | | | Epigastric | [place], [place] | Joel [place], | | | | | pain | [address] | [place] | | | | | Procedures | Phone: | [phone] | | | | | REQUEST TO | [phone] | Phone: | | | | | SURGERY | Fax: | [phone] | | | | | SCRIPT DEVELOPER | [phone] | Fax: | | | | | [place] INJECT | | [phone] | | | | | TRIGGER | | | | | | | POINT, 1 [place] | | | | | | | 2 [place] INJECT | | | | | [...] Pain Medicine | Diagnoses | Chasity, | Radiology Clerk Chh1 | | | | / Pain | Abdominal | MD Kenny | [address] | | | | Management | pain, | [address] | Ave | | | | | unspecified | [facility] | Mailcode: | | | | | location | Rd | CH15P Center | | | | | Procedures | [place], [place] | for Health | | | | | CONSULT TO | [address] | and Healing, | | | | | PAIN | Phone: | Building | | | | | MANAGEMENT | [phone] | 1,15th Floor | | | | | | Fax: | [place], [place] | | | | | | [phone] | [address] | | | | | | | Phone: | | | | | | | [phone] | | | | | | | Fax: | | | | | | | [phone] | +--------+--------+ + + + + Encounter Details +--------+---------+ + + + | Date | Type | Department | Care Team | Description | +--------+---------+ + + + | 10/11/ | Office | [facility] Comprehensive | Vern Robertson, | Epigastric pain | | 2017 | Visit | Pain Center at | DRIER BELT CONVEYOR [address] | (Primary Dx); | | | | [facility] | [place], [place] | Spasticity | | | | [address] | [address] | | | | | Mailcode: CH15P | [phone] | | | | | [facility] | | | | | | and Martina, | | | | | | Building | | | | | | Floor [place], [place] | | | | | | [address] | | | | | | [phone] | | | +--------+---------+ + + + [...] true warrior! * Please sign up for Causecast[employer]ART. This is the best way to communicate with me. It will save you time in the long run. The procedure you discussed with your doctor is called: Trigger point injection of abdomina l scar. Please make sure this is scheduled with the Gas Mask Inspector. PRE-PROCEDURE INSTRUCTIONS 1. Please bring a cart driver with you as we may give [...] blood thinning medications (other than aspirin), [facility] doctor who is doing your procedure will communicate with the provider who is prescribing y our anticoagulant therapy. If you do not have clear instructions on what to do with your an ticoagulant by 2 weeks before your procedure, please contact [facility] to cl arify your instructions. The phone number for questions or concerns is [phone]. * Consider Lidoderm topical or compound prescription [...] muscle hyper tonicity. * Consider increasing your Rosholt 3 fats. Rosholt-3 fats are precursors to mediators of inflammation [...] oil if approved by your PCP or music theory teacher. * Eliminate High Fructose Manor Syrup and Sugar from your diet as [...] [facility] as needed. It was good to see you today. Thank you for taking the time to see us in the Comprehensive Pain Center today. As a reminder, this clinic generally does not prescribe or dispense medi cations. We will send a copy of our notes, including detailed recommendations, to your [place] care provider (PCP). Any prescriptions will need [...] NP - 1 12/11/2016 1:15 PM PST [facility] Return Visit Date: 10/11/2017 Chief Complaint Patient presents with Abdominal pain Back pain Foot pain History of Present Illness: Tracie Farah is a 27 year old female, whose last appoi ntment at the [facility] was 07/11/17 with [...] She reports multiple diagnostic tests conducted at [facility] in [place], [place] including barium swallow and Hydrogen breath [...] Torodol shots: only form of symptom relief. WEIGHT TRAINING INSTRUCTOR Brief Pain Inventory: (ten= worst possible [...] Trial spinal cord stimulator leads 08/02/2012 [facility], Surgeon: Janak Riojas MD Cholecystectomy [...] History Social History Narrative Single. Goes to [employer] with a light load. Has been working at [employer], can' t work on [place]. Has roommates. Allergies Allergen Reactions Morphine Anaphylaxis [...] by physician. Concentration is 150mg/mL. Compounded by [facility] ) LAMOTRIGINE 200 MG TABLET Take [...] GRAM-5.86 GRAM SOLUTION Take as directed by [facility] Digestive [facility]- 2 gallon bowel prep POLYETHYLENE GLYCOL 3350 [...] reviewed. - Review old medical records (from [facility]). Pertinent findings include: abdominal surger y [...] review treatment plan. * Follow up with [facility] Comprehensive Pain Center as needed. I, Guillermo Michaels, am scribing for Vern Robertson NP on 10/11/2017 I have reviewed and verified the above scribed note of my visit with this patient as record ed by Guillermo Hope. Vern Robertson NP PAIN CENTER AT [facility] 15TH FLOOR [address] Mail Code: Ch15[place] [address] documented in this e ncounter Plan of Treatment Not on filedocumented as of this encounter Visit Diagnoses + + | Diagnosis | + + | Epigastric pain - Primary Abdominal pain, epigastric | + + | Spasticity Abnormal involuntary movements | + + documented in this encounter
--- OUTSIDE RECORDS SUMMARY | ~2019-08-12 | XMS | Encounter Summary ---
Demographics + + + | Address | [address] | | | [place] [address] | + + + | Home Phone [...] Providers + +------+ + | Care Veterans Services Specialist Name | Role | Phone [...] + + | 09/30/ | Telephone | KEVIN Odom | Ilene Bright, | Phone communication | | 2017 | | Pain Center at | MED DIR [address] | | | | | [facility] | Ave [place], [place] | | | | | [address] | [address] | | | | | Mailcode: [facility] | [phone] | | | | | [facility] | | | | | | and Healing, | | | | | | Building | | | | | | Floor [place], [place] | | | | | | [address] | | | | | | [phone] | | | +--------+ + + + [...]
--- OUTSIDE RECORDS SUMMARY | ~2019-08-12 | XMS | Encounter Summary ---
Demographics + + + | Address | [address] | | | [place] [address] | + + + | Home Phone [...] Providers + +------+ + | Care Landscape Designer Name | Role | Phone | + +------+ + | Justo Vazquez MD | PCP | | + +------+ + Encounter Details +--------+ + + + + | Date | Type | Department | Care Team | Description | +--------+ + + + + | 01/31/ | Documentati | Vascular Access at | [place], | | | 2017 | on | [facility] [address] | FORTUNATO Mahoney [address] | | | | | [address] | [address] | | | | | [facility] | [place], [place] | | | | | [place], [place] | [address] | | | | | [address] | | | | | | [phone] | | | +--------+ + + + [...]
--- OUTSIDE RECORDS SUMMARY | ~2019-08-12 | XMS | Encounter Summary ---
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 | | | | Therapy | CRPS | Janak Martinez MD | Chh1 [address] | | | | | (complex | [address] | | | | | regional | [address] | Mailcode: | | | | | pain | Mailstop | [facility] Center | | | | | syndrome), | [id number] | for Health | | | | | lower limb | [place], [place] | and Healing, | | | | | Gait | [address] | Building 1 | | | | | disturbance | Phone: | [place], [place] | | | | | Muscle pain | [phone] | [address] | | | | | Procedures | Fax: | Phone: | | | | | PHYSICAL | [phone] | [phone] | | | | | THERAPY | [...] | | | [place] | Ave [place], [place] | syndrome), lower | | | | [address] | [phone] | limb (Primary Dx) | | | | Mailcode: CH3P | | | | | | [facility] | | | | | | and Healing, | | | | | | Building [address] | | | | | | Floor [place], [place] | | | | | | [address] | | | | | | [phone] | | | +--------+---------+ + + + [...] might be different f rom the original. [id number] BRODY FARAH Date of : 1990 Start of care: 02/14/2012 Date of onset: 02/14/2012 Referring/Attending Practitioner: Janak Riojas MD . Primary/Referral Diagnosis/ICD-9: 355.71B CRPS (complex regional pain syndrome), lower limb Insurance: Payor: [facility] Plan: BCBS OUT OF STATE Product Type: PP O Service period from: 02/14/2012 to: 08/12/2012 Number visits used/authorized: 04/25 [facility] PHYSICAL THERAPY PROGRESS NOTE [...] change in their status. Guillermo Sanon MSPT [facility] Outpatient Rehabilitation Services Mailcode: Ch3p [address] [facility], [address]st [facility] [address] documented in this encounter Plan [...]
--- OUTSIDE RECORDS SUMMARY | ~2019-08-12 | XMS | Encounter Summary ---
Demographics + + + | Address | [address] | | | [place] [address] | + + + | Home Phone [...] Providers + +------+ + | Care Block Out Machine Operator Name | Role | Phone | + +------+ + | Justo Vazquez MD | PCP | | + +------+ + Encounter Details +--------+ + + + + | Date | Type | Department | Care Team | Description | +--------+ + + + + | 08/03/ | Telephone | [facility] | [place], | | | 2018 | | Pain Center at | ,PhD [address] | | | | | [facility] | [address] | | | | | [address] | [place], [place] | | | | | Mailcode: CH15P | [address] | | | | | [place] for [facility] | [phone] | | | | | and Healing, | | | | | | | | | | | | Floor [place], [place] | | | | | | [address] | | | | | | [phone] | | | +--------+ + + + [...]
--- OUTSIDE RECORDS SUMMARY | ~2019-08-12 | XMS | Encounter Summary ---
Demographics + + + | Address | [address] | | | [place] [address] | + + + | Home Phone [...] Providers + +------+ + | Care Supervisor Farm Equipment Maintenance Name | Role | Phone | [...] | | Pain Center at | ,PhD [address] [facility] | follow-up | | | | [facility] | [address] | | | | | [address] | [place], [place] | | | | | Mailcode: CH15P | [address] | | | | | [facility] | [phone] | | | | | and [address], | | | | | | Building | | | | | | Floor [place], [place] | | | | | | [address] | | | | | | [phone] | | | +--------+ + + + [...]
--- OUTSIDE RECORDS SUMMARY | ~2019-08-12 | XMS | Encounter Summary ---
Demographics + + + | Address | [address] | | | [place] [address] | + + + | Home Phone [...] Team Providers + +------+ + | Care Cns Name | Role | Phone | [...] | | Center at [facility] [address] MD | Treatment Planning | | | | [address] | | | | | | Mailcode: Center | | | | | | for Health and | | | | | | [facility] 2 | | | | | | [place], [place] | | | | | | [address] | | | | | | [phone] | | | +--------+ + + + [...]
--- OUTSIDE RECORDS SUMMARY | ~2019-08-12 | XMS | Encounter Summary ---
Demographics + + + | Address | [address] | | | [place] [address] | + + + | Home Phone [...] Team Providers + +------+ + | Care Translator/Interpreter Name | Role | Phone | + [...] | | | | | [place], | | | | | | [place] [address] | | | +--------+ + + + [...]
--- OUTSIDE RECORDS SUMMARY | ~2019-08-12 | XMS | Encounter Summary ---
Demographics + + + | Address | [address] | | | [place] [address] | + + + | Home Phone [...] Providers + +------+ + | Care Inspector Line Name | Role | Phone | [...] 2017 | | Pain Center at | ENTERPRISE SOFTWARE DEVELOPER [address] | | | | | [facility] | Ave [place], [place] | | | | | [address] | [address] | | | | | Mailcode: [facility] | [phone] | | | | | [facility] | | | | | | and Healing, | | | | | | Building | | | | | | Floor [place], [place] | | | | | | [address] | | | | | | [phone] | | | +--------+ + + + [...]
--- OUTSIDE RECORDS SUMMARY | ~2019-08-12 | XMS | Encounter Summary ---
Demographics + + + | Address | [address] | | | [place] [address] | + + + | Home Phone [...] Team Providers + +------+ + | Care Sharepoint Manager Name | Role | Phone | [...] | | | regional | [place] | [address] | | | | | pain | FAMILY | Mailstop | | | | | syndrome), | MEDICINE P | [id number] | | | | | lower limb | [address] | [place], [place] | | | | | Pain in | [place], | [address] | | | | | joint, lower | [place] [address] | Phone: | | | | | leg | Phone: | [phone] | | | | | Procedures | [phone] | Fax: | | | | | REQUEST TO | Fax: | [phone] | | | | | SURGERY | [phone] | | | | | | MEDICAL APPOINTMENT CLERK | | | +--------+--------+ + + + + Encounter Details +--------+ + + + + | Date | Type | Department | Care Team | Description | +--------+ + + + + | 08/02/ | Procedure | Pain Center at [facility] | Dale Cantu, | Procedure; | | 2011 | | 15th Floor [address] | MD [address] | Injection; Procedure | | | | [address] Mailcode: | Mailstop [id number] | | | | | CH15P [facility] | [place], [place] | | | | | Health and Healing, | [address] | | | | | [facility] | [phone] | | | | | Floor [place], [place] | | | | | | [address] | | | | | | [phone] | | | +--------+ + + + [...] e might be different from the original. [email or web address] Pain Center Patient Instructions - Post Spinal Cord Stimulator Trial Date: 08/02/2012 Name: Tracie Farah Date of : 1990 Procedure Performed: SCS TRIAL LUMBAR [facility] Procedure Provider: Dale Cantu [facility] Procedure Rm If you have any problems you believe are associated with your procedure tonight, Please call the Hospital Lactation Nurse, and ask for the Pain Management Consu ltant. If you have problems or questions between 9:00 am and 4:00 pm, Please call the [facility] [[email or web address] Pain Center Nurse Triage Line, . If you go to an Emergency Room, please bring this form with you. DISCHARGE INSTRUCTIONS Call immediately and/or go to the Emergency department if any concerns about wound healing, fever, or chills. Also call for concerns about SCS function. During [facility] open hours, call the [facility] ([phone]), after hours call the joy operator helper at [facility] ([phone]) and ask for t Adult Pain Service legal nurse consultant. Identify yourself as a Comprehensive Pain Center [...] the wounds, dressing, or SCS function. During VENEER TAPING MACHINE OFFBEARER o pen hours, call the VENEER TAPING MACHINE OFFBEARER ([phone]), after hours call the joy operator helper at [facility] ([phone] ) and ask for the Adult Pain Service legal nurse consultant. Identify yourself as my patient with a concer n about postoperative recovery. If there are concerns about the SCS programming, contact t he financial foundations representative from the SCS professor of architecture. If the stimulation is not covering your area o f pain, your SCS should be reprogrammed. Do not take any blood thinning medications during the trial. Instructions printed and reviewed with the patient. Copy of instructions given to Pj Nemo víctor. DALE CANTU MD [facility] Center documented in this [...] and postoperative care instructions. DALE CANTU MD Automobile Inspector, [facility] [[email or web address] Pain Center Paper Cup Machine Operator, Pain Medicine Professor, Anesthesiology & Perioperative Medicine Diana Arroyo RN - 08/02/2012 7:34 AM PDT PRE-SEDATION: Date: August 02, 2012 Tracie Farah [id number] 1990 ALLERGIES: Morphine Previous reaction to Sedation/Analgesia: MEDICATIONS: Current Outpatient Prescriptions Medication HYDROcodone-acetaminophen (NORCO) 10-325 mg Oral Tablet KETOROLAC TROMETHAMINE (TORADOL IM) levonorgestrel (MIRENA) 20 mcg/24 hr Intrauterine IUD LORazepam 1 mg Oral Tablet ondansetron (ZOFRAN) 8 mg Oral Tablet promethazine 25 mg Oral Tablet Meets NPO Guidelines. IV ACCESS: IV in Place IV Site [facility] 22 g @ 0655 BASELINE VS: See Sedation Flow Sheet. Tracie Donaldson [facility] [id number] 1990, presents to clinic for: Procedure: Spinal [...] 0732 - 0733: [place]azol[place] 2 [place] [address]: Fentanyl 25 mcg IV 0740 - 0741: Midazolam 2 mg IV 0742: Procedure started 0743 - 0744: Fentanyl 50 mcg IV 0753-54: Fentanyl 25 mcg IV Lead # 1 placed Lead # 2 placed 0801: Stimulation started. 0829: Pt reports stimulation to usual areas of pain. Leads secured. 0845: Pt returned to [facility] per [place] in stable condition. IV dc'd. IssaEvelia - [...] OPERATIVE NOTE Date: August 02, 2012 [facility]: [facility] Procedure Room Tracie Farah [id number] :1990, presents to clinic for: PROCEDURE: Spinal Cord Stimuation Trial LEVEL/LATERALITY: midline lumbar PRE-OPERATIVE DIAGNOSIS: 355.71B CRPS (complex regional pain syndrome), lower limb 719.46 Pain in joint, lower leg 781.2Q Gait disturbance POST-OPERATIVE DIAGNOSIS: 355.71B CRPS (complex regional pain syndrome), lower limb 719.46 Pain in joint, lower leg 781.2Q Gait disturbance ATTENDING PHYSICIAN: Dale Cantu MD AUTOMOTIVE BUYER: Fellow Bear Yost DO ANESTHESIA: sedation delivered [...] sedation. Ms. Farah was escorted to the [facility] Procedure Ro om, where she was positioned Prone on the examination table. TEAM PAUSE: The physician-led pause was conducted, and is documented in the Nursing note. Monitors were placed, including ECG, NIBP and SpO2. The skin was prepared with Chloroprep and sterile drapes were applied. St. [employer] system was used for this procedure. The company financial foundations representative was theresa knutson for the procedure. [...] pain. Ms. Farah was transported to the [facility] Comprehensive Pain Center post-procedure recovery area where she made an uneventful recovery. Images were saved, and sent to [facility]. Ms. Farah will have her next appointment [...] about wound healing or SCS function. During [facility] open hours, call the [facility] ([phone]), after h ours call the joy operator helper at [facility] ([phone]) and ask for the Adult Pain Service legal nurse consultant. Identify yourself as my patient with a [...] | NV PERCUT IMPLNT | Routin | 08/03/2012 | [...]
--- OUTSIDE RECORDS SUMMARY | ~2019-08-12 | XMS | Encounter Summary ---
Demographics + + + | Address | [address] | | | [place] [address] | + + + | Home Phone [...] Providers + +------+ + | Care Wire Frame Maker Name | Role | Phone | + +------+ + | Justo Vazquez MD | PCP | | + +------+ + Encounter Details +--------+ + + + + | Date | Type | Department | Care Team | Description | +--------+ + + + + | 03/23/ | MyChart | [facility] Comprehensive | Ilene Bright, | Welcome | | 2017 | Encounter | Pain Center at | SERVICE BAR CASHIER [address] | | | | | [facility] | Ave [place], [place] | | | | | [address] | [address] | | | | | Mailcode: CH15P | [phone] | | | | | [facility] | | | | | | and Healing, | | | | | | | | | | | | [place], [place] | | | | | | [address] | | | | | | [phone] | | | +--------+ + + + [...]
--- OUTSIDE RECORDS SUMMARY | ~2019-08-12 | XMS | Encounter Summary ---
Demographics + + + | Address | [address] | | | [place] [address] | + + + | Home Phone [...] Providers + +------+ + | Care Health Unit Supervisor Name | Role | Phone | [...] Medical Records | | 2017 | | [place] [address] [address] | [address] | Review | | | | [address] | [address] [place], | | | | | Mailcode: [place] | [place] [address] | | | | | for Health and | [phone] | | | | | [facility] 2 | | | | | | [place], [place] | | | | | | [address] | | | | | | [phone] | | | +--------+ + + + [...]
--- OUTSIDE RECORDS SUMMARY | ~2019-08-12 | XMS | Encounter Summary ---
Demographics + + + | Address | [address] | | | [place] [address] | + + + | Home Phone [...] Team Providers + +------+ + | Care Lithopress Operator Name | Role | Phone | + +------+ + | Justo Vazquez MD | PCP | | + +------+ + Encounter Details +--------+ + + + + | Date | Type | Department | Care Team | Description | +--------+ + + + + | 05/05/ | Documentati | [facility] | [place] Sanchez, | | | 2018 | on | Pain Center at | ,PhD [address] | | | | | [facility] | [facility] [address] | | | | | [address] | [place], [place] | | | | | Mailcode: CH15P | [address] | | | | | [place] for [facility] | [phone] | | | | | and Healing, | | | | | | | | | | | | Floor [place], [place] | | | | | | [address] | | | | | | [phone] | | | +--------+ + + + [...]
--- OUTSIDE RECORDS SUMMARY | ~2019-08-12 | XMS | Encounter Summary ---
Demographics + + + | Address | [address] | | | [place] [address] | + + + | Home Phone [...] Providers + +------+ + | Care Account Support Specialist Name | Role | Phone [...] syndrome | [facility] | [facility] | | | | | type 1 of | Rd | Rd [place], | | | | | left lower | [place], [place] | [place] | | | | | extremity | [address] | [address] | | | | | Procedures | Phone: | Phone: | | | | | REQUEST TO | [phone] | [phone] | | | | | SURGERY | Fax: | Fax: | | | | | SETTER COLD ROLLING MACHINE | [phone] | [phone] | +--------+---------+ + + + + Reason [...] | | | | | Procedures | [place], [place] | Joel [place], | | | | | CONSULT TO | [address] | [place] | | | | | PAIN | Phone: | [phone] | | | | | MANAGEMENT | [phone] | Phone: | | | | | | Fax: | [phone] | | | | | | [phone] | Fax: | | | | | | | [phone] | +--------+--------+ + + + + Encounter Details +--------+---------+ + + + | Date | Type | Department | Care Team | Description | +--------+---------+ + + + | 10/09/ | Office | [facility] | Alex Sanchez, | Complex regional | | 2018 | Visit | Pain Center at | ,PhD [address] [facility] | pain syndrome type 1 | | | | [facility] | [facility] [address] | of left lower | | | | [address] | [place], [place] | extremity (Primary | | | | Mailcode: CH15 | [address] | Dx) | | | | [facility] | [phone] | | | | | and Healing, | | | | | | | | | | | | Floor [place], [place] | | | | | | [address] | | | | | | [phone] | | | +--------+---------+ + + + [...] with an external order to see a criminal research specialist today. Please p resent this referral [...] insurance. PRE-PROCEDURE INSTRUCTIONS 1. Please bring a recycle driver with you as we may give [...] or blood thinning medications (other than aspirin), [facility] who is doing your procedure will communicate with the provider who is prescribing y our anticoagulant therapy. If you do not have clear instructions on what to do with your an ticoagulant by 2 weeks before your procedure, please contact [facility] to cl arify your instructions. The phone number for questions or concerns is [phone]. documented in this encounter Progress Notes Alex [...] [facility] [place] signed by Alex Sanchez MD,PhD at 09/15 [...] [facility] was September 28, 2018, for a clinic visit with Yun Frey NP. At that time our plans were: Recommendations/Plan: 1. Recommend to keep her appointment with Dr. Sanchez on 10/02/2018. 2. To contact the [employer] rep if she has any further question [...] She went into the emergency room in [place], [place] where they rem cady the leads. [...] which she suspects also used dissolvable stitches. BID WRITER Brief Pain Inventory: (ten= worst possible pain [...] History Social History Narrative Single. Goes to [employer] with a light load. Has been working at [employer], can' t work on crGlowches. Has roommates. Allergies Allergen Reactions Morphine Anaphylaxis [...] the vein (IV) every eight hour s. 3906-0550-50 COMPOUNDED MED RX CONTROLLED (SEE ADMIN INSTRUCT [...] by physician. Concentration is 150mg/mL. Compounded by [facility] ) KETOROLAC IM Inject into the [...] (IV) every twel ve hours as needed. 4429-5091-69 ONDANSETRON 4 MG DISINTEGRATING TABLET Dissolve 1 [...] and summary of old medical records (source: [employer]), as summarized in the body of the [...] Valerio MD PAIN CENTER AT [facility] 15TH FLOOR [address] [facility] Mail Code: 15[address] [place] [address] [phone] signed by Alex Sanchez MD,PhD at 10/10/2018 9:27 AM [facility] umented in this encounter Plan of Treatment Not on filedocumented as of this encounter Visit Diagnoses + + | Diagnosis | + + | Complex regional pain syndrome type 1 of left lower extremity - Primary | + + documented in this encounter
--- OUTSIDE RECORDS SUMMARY | ~2019-08-12 | XMS | Encounter Summary ---
Demographics + + + | Address | [address] | | | [place] [address] | + + + | Home Phone [...] Providers + +------+ + | Care Implementation Engineer Name | Role | Phone | [...] Pain Medicine | Diagnoses | [place], | Pre Sales Network Engineer Chh1 | | | | / Pain | Abdominal | MD Kenny | [address] | | | | Management | pain, | [address] | [address] | | | | | unspecified | [address] | Mailcode: | | | | | location | Rd | CH15P Center | | | | | Procedures | [place], [place] | for Health | | | | | CONSULT TO | [address] | and Healing, | | | | | PAIN | Phone: | Building | | | | | MANAGEMENT | [phone] | 1,15th Floor | | | | | | Fax: | [place], [place] | | | | | | [phone] | [address] | | | | | | | Phone: | | | | | | | [phone] | | | | | | | Fax: | | | | | | | [phone] | +--------+--------+ + + + + Reason [...] | | 2017 | | Center at [facility] [address] | [address] | pain | | | | [address] | Giuliana Maldonado [place], | | | | | Mailcode: [place] | [place] [address] | | | | | for Health and | [phone] | | | | | [place] [address] | | | | | | [place], [place] | | | | | | [address] | | | | | | [phone] | | | +--------+ + + + [...]
--- OUTSIDE RECORDS SUMMARY | ~2019-08-12 | XMS | Encounter Summary ---
Demographics + + + | Address | [address] | | | [place] [address] | + + + | Home Phone [...] Providers + +------+ + | Care Gun Barrel Finisher Name | Role | Phone | + +------+ + | Justo Vazquez MD | PCP | | + +------+ + Encounter Details +--------+------+ + + + | Date | Type | Department | Care Team | Description | +--------+------+ + + + | 04/23/ | Lab | Laboratory at [facility] | | Other chronic pain ; | | 2018 | | [address] | | Complex regional | | | | [place], [place] | | pain syndrome type 1 | | | | [address] | | of left lower | | | | [phone] | | extremity | +--------+------+ + + [...] | + + + + + | [facility] | [address] | [place] [address] | | | [place], [place]ILLIAN | GUILLERMO [...]
--- OUTSIDE RECORDS SUMMARY | ~2019-08-12 | XMS | Encounter Summary ---
Demographics + + + | Address | [address] | | | [place] [address] | + + + | Home Phone [...] Team Providers + +------+ + | Care Deployment Engineer Name | Role | Phone | + +------+ + | Justo Vazquez MD | PCP | | + +------+ + Encounter Details +--------+ + + + + | Date | Type | Department | Care Team | Description | +--------+ + + + + | 03/17/ | MyChart | [facility] [place] | Yun Frey OVEN BAKER | Welcome | | 2017 | Encounter | Pain Center at | [address] | | | | | [place] | [place], [place] | | | | | [address] | [address] | | | | | Mailcode: CH15P | [phone] | | | | | [facility] | | | | | | and Healing, | | | | | | | | | | | | Floor [place], [place] | | | | | | [address] | | | | | | [phone] | | | +--------+ + + + [...]
--- OUTSIDE RECORDS SUMMARY | ~2019-08-12 | XMS | Encounter Summary ---
Demographics + + + | Address | [address] | | | [place] [address] | + + + | Home Phone [...] Team Providers + +------+ + | Care Pole Climber Name | Role | Phone | + [...] [facility], [address] [address] | | | | | | [place], [place] | | | | | | [address] | | | | | | [phone] | | | +--------+ + + + [...]
--- OUTSIDE RECORDS SUMMARY | ~2019-08-12 | XMS | Encounter Summary ---
Demographics + + + | Address | [address] | | | [place] [address] | + + + | Home Phone [...] Team Providers + +------+ + | Care Artists' Booking Representative Name | Role | Phone | [...] + | 08/07/ | Refill | [facility] | Alex Sanchez, | Refill Request | | 2018 | | Pain Center at | ,PhD [address] | | | | | [facility] | [address] | | | | | [address] | [place], [place] | | | | | Mailcode: CH15 | [address] | | | | | [facility] | [phone] | | | | | and Martina, | | | | | | Building | | | | | | Floor [facility] [place] | | | | | | [address] | | | | | | [phone] | | | +--------+--------+ + + + [...]
--- OUTSIDE RECORDS SUMMARY | ~2019-08-12 | XMS | Encounter Summary ---
Demographics + + + | Address | [address] | | | [place] [address] | + + + | Home Phone [...] Team Providers + +------+ + | Care Interactive Media Marketing Director Name | Role | Phone | + +------+ + | Justo Vazquez MD | PCP | | + +------+ + Encounter Details +--------+ + + + + | Date | Type | Department | Care Team | Description | +--------+ + + + + | 12/28/ | Telephone | [facility] | Ilene Bright, | | | 2019 | | Pain Center at | OFFICE AUTOMATION TECHNICIAN [address] | | | | | [facility] | Ave [place], [place] | | | | | [address] | [address] | | | | | Mailcode: CH15P | [phone] | | | | | [facility] | | | | | | and Healing, | | | | | | | | | | | | [address], [place] | | | | | | [address] | | | | | | [phone] | | | +--------+ + + + [...]
--- OUTSIDE RECORDS SUMMARY | ~2019-08-12 | XMS | Encounter Summary ---
Demographics + + + | Address | [address] | | | [place] [address] | + + + | Home Phone [...] Providers + +------+ + | Care Superintendent Drilling Name | Role | Phone | + +------+ + | Justo Vazquez MD | PCP | | + +------+ + Encounter Details +--------+ + + + + | Date | Type | Department | Care Team | Description | +--------+ + + + + | 10/20/ | Telephone | [facility] | Ilene Bright, | | | 2017 | | Pain Center at | PET FEEDER [address] | | | | | [facility] | Ave [place], [place] | | | | | [address] | [address] | | | | | Mailcode: CH15P | [phone] | | | | | [facility] | | | | | | and Healing, | | | | | | | | | | | | [place], [place] | | | | | | [address] | | | | | | [phone] | | | +--------+ + + + [...]
--- OUTSIDE RECORDS SUMMARY | ~2019-08-12 | XMS | Encounter Summary ---
Demographics + + + | Address | [address] | | | [place] [address] | + + + | Home Phone [...] Team Providers + +------+ + | Care Pharmaceutical Detailer Name | Role | Phone | [...] | | Pain | Complex | Ilene, POWERHOUSE OILER | Catriona M, | | | | Management | regional | [address] | PSY D [address] | | | | | pain | [address] | [address] | | | | | syndrome | [place], [place] | [place], [place] | | | | | type 1 of | [address] | [address] Phone: | | | | | left lower | Phone: | [phone] | | | | | extremity | [phone] | Fax: | | | | | Intractable | Fax: | [phone] | | | | | cyclical | [phone] | | | | | | vomiting [...] | | | | | | [place] | | | | | | | PSYCHIATRIC | | | | | | | DIAGNOSTIC | | | | | | | EVAL, NO MED | | | | | | | SVCS [place] | | | | | | | PSYCH TSTNG | | | | | | | PSYCH/PHYS | | | | | | | [place] | | | | | | | PSYCHOTHERAP | | | | | | | Y, 45 MIN | | | +--------+---------+ + + + + Encounter Details +--------+---------+ + + + | Date | Type | Department | Care Team | Description | +--------+---------+ + + + | 10/11/ | Office | Pain Center at [facility] | Jamel Bravo, | Adjustment disorder | | 2017 | Visit | 15th Floor [address] | PhD [address] | with mixed anxiety | | | | [address] Mailcode: | Ave [place], [place] | and depressed mood | | | | [facility] Center for | [address] | (Primary Dx); | | | | Health and Healing, | [phone] | Complex regional | | | | Building | | pain syndrome type 1 | | | | Floor [place], [place] | | of left lower | | | | [address] | | extremity; Abdominal | | | | [phone] | | pain, unspecified | | | [...] Jamel Bravo, PhD - 10/11/2017 10:50 AM [facility] Initial Psychologica l Evaluation IDENTIFYING INFORMATION: Tracie Farah is a 27 y.o. female Date of : 1990 Consulting Psychologist: JAMEL BRAVO PHD Consultation Date: 10/11/2017 Referring Provider: [place] Bright Identifying Information: Tracie Farah is a 27 y.o. female who lives with her paren ts in [place], [place]. The patient was referred for pain [...] by physician. Concentration is 150mg/mL. Compounded by [employer] ([phone]), Disp: , Rfl: 5 lamoTRIgine 200 mg [...] oral recon soln, Take as directed by [facility]- 2 gallon bowel prep, Disp: [...] e. She reported doing some of the hobber. For enjoyment the patient watches TV, reads, [...] time I spent was approximately 50 minutes jiaz-xw-myzd with the patient and approxima tely 1 hour 40 minutes of mmt-oerm-us-face testing, interpreting and synthesizing results. Jamel Bravo, PhD PAIN CENTER AT [facility] 15TH FLOOR [address] [facility] Mail Code: Ch15p [place] [address] documented in this en counter [...]
--- OUTSIDE RECORDS SUMMARY | ~2019-08-12 | XMS | Encounter Summary ---
Demographics + + + | Address | [address] | | | [place] [address] | + + + | Home Phone [...] Providers + +------+ + | Care Supervisor Continuous Weld Pipe Mill Name | Role | Phone | + +------+ + | Justo Vazquez MD | PCP | | + +------+ + Encounter Details +--------+ + + + + | Date | Type | Department | Care Team | Description | +--------+ + + + + | 10/09/ | Telephone | [facility] | Alex Sanchez, | | | 2018 | | Pain Center at | ,PhD [address] | | | | | [facility] | [address] | | | | | [address] | [place], [place] | | | | | Mailcode: CH15P | [address] | | | | | [place] for [facility] | [phone] | | | | | and Healing, | | | | | | | | | | | | Floor [place], [place] | | | | | | [address] | | | | | | [phone] | | | +--------+ + + + [...]
--- OUTSIDE RECORDS SUMMARY | ~2019-08-12 | XMS | Encounter Summary ---
Demographics + + + | Address | [address] | | | [place] [address] | + + + | Home Phone [...] Providers + +------+ + | Care Stud Master/Mistress Name | Role | Phone | + [...] | | | sympathetic | [place] | [address]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 | FAMILY | Mailstop | | | | | of lower | MEDICINE P | [id number] | | | | | limb | [address] | [place], [place] | | | | | | [place], | [address] | | | | | | [place] [address] | Phone: | | | | | | Phone: | [phone] | | | | | | [phone] | Fax: | | | | | | Fax: | [phone] | | | | | | [phone] | | +--------+--------+ + + + + [...] | [facility] | [facility] [id number] | syndrome), lower | | | | [address] | [place], [place] | limb (Primary Dx) | | | | Mailcode: CH15P | [address] | | | | | [facility] | [phone] | | | | | and Healing, | | | | | | Building | | | | | | Floor [place], [place] | | | | | | [address] | | | | | | [phone] | | | +--------+---------+ + + + [...] evaluated the patient with Fellow Nhan Guo [facility], who conducted the initial history. I reviewed the history in det ail and edited his note. I was present for the examination and formulation portions of the encounter. I agree with the findings and the plan of care as documented in our notes. DALE CANTU MD Body Corporate Manager, [facility] Proofer [employer], Pain Medicine Professor, Anesthesiology & Perioperative Medicine [...] physical activity and social withdrawal enok Gutierrez, [facility] - 08/04/2012 7:25 AM PDTFormatting of this note might be different from the [facility] Return Visit with Dr. Dale [...] has been treated at the [facility] for lower limb pain with [...] and a pain drawing which I reviewed. [facility] Brief Pain Inventory: (ten= worst possible [...] The Review of Systems obtained by the [facility] was reviewed. Additional Review of Systems: [...] multiple programs with both [facility] and [facility] programs, however it appears that it does [...] bath today, OK to shower. HENOK GUO, [facility] documented in this en counter Plan of Treatment Not on filedocumented as of this encounter Visit Diagnoses + + | Diagnosis | + + | CRPS (complex regional pain syndrome), lower limb - Primary Causalgia of lower limb | + + documented in this encounter
--- OUTSIDE RECORDS SUMMARY | ~2019-08-12 | XMS | Encounter Summary ---
Demographics + + + | Address | [address] | | | [place] [address] | + + + | Home Phone [...] | | | | regional | ,PhD [address] | | | | | | pain | [address] | | | | | | syndrome | [address] | | | | | | type 1 of | Rd | | | | | | left lower | [place], [place] | | | | | | extremity | [address] | | | | | | Other | Phone: | | | | | | chronic pain | [phone] | | | | | | S/P | Fax: | | | | | | insertion of | [phone] | | | | | | spinal [...] | | | | regional | ,PhD [address] | | | | | | pain | [address] | | | | | | syndrome | [address] | | | | | | type 1 of | Rd | | | | | | left lower | [place], [place] | | | | | | extremity | [address] | | | | | | Other | Phone: | | | | | | chronic pain | [phone] | | | | | | S/P | Fax: | | | | | | insertion of | [phone] | | | | | | spinal [...] | | Pain Center at | ,PhD [address] | | | | | [facility] | [facility] | | | | | [address] | [place], [place] | | | | | Mailcode: CH15P | [address] | | | | | [facility] | [phone] | | | | | and [place], | | | | | | | | | | | | Floor [place], [place] | | | | | | [address] | | | | | | [phone] | | | +--------+ + + + [...]
--- OUTSIDE RECORDS SUMMARY | ~2019-08-12 | XMS | Encounter Summary ---
Demographics + + + | Address | [address] | | | [place] [address] | + + + | Home Phone [...] Team Providers + +------+ + | Care Molded Goods Spot Picker Name | Role | Phone | [...] 2016 | | Center at [facility] [address] | [address] | | | | | [address] [place], | | | | | Mailcode: [place] | [place] [address] | | | | | for Health and | [phone] | | | | | [facility] 2 | | | | | | [place], [place] | | | | | | [address] | | | | | | [phone] | | | +--------+ + + + [...]
--- OUTSIDE RECORDS SUMMARY | ~2019-08-12 | XMS | Encounter Summary ---
Demographics + + + | Address | [address] | | | [place] [address] | + + + | Home Phone [...] Providers + +------+ + | Care Knowledge Engineer Name | Role | Phone | [...] | (ortho question) | | | | [facility] | [facility] | | | | | [address] | [place], [place] | | | | | Mailcode: CH15P | [address] | | | | | [facility] | [phone] | | | | | and Healing, | | | | | | Building | | | | | | [place], [place] | | | | | | [address] | | | | | | [phone] | | | +--------+ + + + [...]
--- OUTSIDE RECORDS SUMMARY | ~2019-08-12 | XMS | Encounter Summary ---
Demographics + + + | Address | [address] | | | [place] [address] | + + + | Home Phone [...] Providers + +------+ + | Care Fish Warden Name | Role | Phone | [...] | | | | | Giuliana Maldonado [place], | | | | | | [place] [address] | | | +--------+ + + + [...]
--- OUTSIDE RECORDS SUMMARY | ~2019-08-12 | XMS | Encounter Summary ---
Demographics + + + | Address | [address] | | | [place] [address] | + + + | Home Phone [...] Providers + +------+ + | Care Resource Development Director Name | Role | Phone [...] on | Center at [facility] [address] | [address] | | | | | [address] | [place], [place] | | | | | Mailcode: Center | [address] | | | | | for Health and | [phone] | | | | | [facility], [facility] 2 | | | | | | [place], [place] | | | | | | [address] | | | | | | [phone] | | | +--------+ + + + [...]
--- OUTSIDE RECORDS SUMMARY | ~2019-08-12 | XMS | Encounter Summary ---
Demographics + + + | Address | [address] | | | [place] [address] | + + + | Home Phone [...] | | Pain Center at | [address] | | | | | [facility] | St [id number] | | | | | [address] | [place], [place] | | | | | Mailcode: CH15P | [address] | | | | | [facility] | [phone] | | | | | and Healing, | | | | | | [facility] | | | | | | [place], [place] | | | | | | [address] | | | | | | [phone] | | | +--------+ + + + [...]
--- OUTSIDE RECORDS SUMMARY | ~2019-08-12 | XMS | Encounter Summary ---
Demographics + + + | Address | [address] | | | [place] [address] | + + + | Home Phone [...] Providers + +------+ + | Care Shank Cementer Hand Name | Role | Phone | [...] | 2016 | on | Center at [facility] [address] | [address] | | | | | [address] | [place], [place] | | | | | Mailcode: Center | [address] | | | | | for Health and | [phone] | | | | | [facility], [address] | | | | | | [place], [place] | | | | | | [address] | | | | | | [phone] | | | +--------+ + + + [...]
--- OUTSIDE RECORDS SUMMARY | ~2019-08-12 | XMS | Encounter Summary ---
Demographics + + + | Address | [address] | | | [place] [address] | + + + | Home Phone [...] Team Providers + +------+ + | Care Firearms Assembly Supervisor Name | Role | Phone [...] Rd | | | | | | [place], [place] | | | | | | [address] | | | +--------+ + + + [...]
--- OUTSIDE RECORDS SUMMARY | ~2019-08-12 | XMS | Encounter Summary ---
Demographics + + + | Address | [address] | | | [place] [address] | + + + | Home Phone [...] Providers + +------+ + | Care Chief Of Hospital Medicine Name | Role | Phone | + +------+ + | Justo Vazquez MD | PCP | | + +------+ + Encounter Details +--------+ + + + + | Date | Type | Department | Care Team | Description | +--------+ + + + + | 05/05/ | Documentati | [facility] | Alex Sanchez, | | | 2018 | on | Pain Center at | ,PhD [address] | | | | | [facility] | [facility] [address] | | | | | [address] | [place], [place] | | | | | Mailcode: CH15P | [address] | | | | | [place] for [facility] | [phone] | | | | | and Healing, | | | | | | | | | | | | Floor [place], [place] | | | | | | [address] | | | | | | [phone] | | | +--------+ + + + [...]
--- OUTSIDE RECORDS SUMMARY | ~2019-08-12 | XMS | Encounter Summary ---
Demographics + + + | Address | [address] | | | [place] [address] | + + + | Home Phone [...] + + + + | 12/07/ | Pharmacognosist | Endoscopic | Ava Carbajal | | | 2016 | | Procedural Unit at | MD Melissa | | | | | [facility] | | | | | | [address] | | | | | | Mailcode: OC2L | | | | | | [facility] | | | | | | and Healing, | | | | | | Building 2 | | | | | | [place], [place] | | | | | | [address] | | | | | | [phone] | | | +--------+ + + + [...]
--- OUTSIDE RECORDS SUMMARY | ~2019-08-12 | XMS | Encounter Summary ---
Demographics + + + | Address | [address] | | | [place] [address] | + + + | Home Phone [...] Team Providers + +------+ + | Care Motorsports Technician Name | Role | Phone | [...] Closed | | Orthopedics | Diagnoses | [place], | [facility] | | | | | Adjustment | Ranjeet Odom MD | Ch[address] | | | | | disorder, | [address] | | | | | unspecified | [address] | Mailcode: | | | | | type | [place], [place] | [facility] | | | | | Procedures | [address] | for Health | | | | | CONSULT TO | Phone: | and Healing, | | | | | BEHAVIORAL | [phone] | Building 1, | | | | | HEALTH/PSYCH | Fax: | 12th Floor | | | | | IATRY - | [phone] | [place], [place] | | | | | ADULT | | [address] | | | | | | | Phone: | | | | | | | [phone] | | | | | | | Fax: | | | | | | | [phone] | +--------+--------+ + + + + Reason [...] | | syndrome | [place] | [place], [place] | | | | | type 1 of | Rd | [address] | | | | | left lower | [place], [place] | Phone: | | | | | extremity | [address] | [phone] | | | | | Procedures | Phone: | Fax: | | | | | CONSULT TO | [phone] | [phone] | | | | | ORTHOPEDICS | Fax: | | | | | | AND | [phone] | | | | | | REHABILITATI [...] left | | 2018 | Visit | [facility] [address] | [address] | (Primary Dx); Left | | | | Ave Mailcode: CH12A | [place], [place] | ankle pain, | | | | [facility] | [address] | unspecified | | | | and Healing, | [phone] | chronicity; | | | | [facility] | | Adjustment disorder, | | | | Floor [place], [place] | | unspecified type | | | | [address] | | | | | | [phone] | | | +--------+---------+ + + + [...] Hemroidectomy Trial spinal cord stimulator leads 08/02/2012 [facility], Surgeon: Janak Riojas MD Cholecystectomy Appendectomy [...] by physician. Concentration is 150mg/mL. Compounded by [employer] ([phone]) levonorgestrel (MIRENA) 20 mcg/24 hr Intrauterine IUD [...] oral recon soln Take as directed by [facility]- 2 gallon bowel [...] become. f/u open ended Ranjeet Amanda M.D. Combination [facility] Foot and Ankle Surgery Department of Orthopedics & Rehabilitation [facility] [phone] >60 mins face to face consultation was [...]
--- OUTSIDE RECORDS SUMMARY | ~2019-08-12 | XMS | Encounter Summary ---
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 | | | | Therapy | CRPS | Janak Martinez MD | [address] | | | | | (complex | [address] | | | | | regional | [address] | Mailcode: | | | | | pain | Mailstop | [facility] Center | | | | | syndrome), | [id number] | for Health | | | | | lower limb | [place], [place] | and Healing, | | | | | Gait | [address] | Building 1 | | | | | disturbance | Phone: | [place], [place] | | | | | Muscle pain | [phone] | [address] | | | | | Procedures | Fax: | Phone: | | | | | PHYSICAL | [phone] | [phone] | | | | | THERAPY | [...] | | | [place] | Ave [place], [place] | syndrome), lower | | | | [address] | [phone] | limb (Primary Dx) | | | | Mailcode: CH3P | | | | | | [facility] | | | | | | and Healing, | | | | | | Building [address], [address] | | | | | | Floor [place], [place] | | | | | | [address] | | | | | | [phone] | | | +--------+---------+ + + + [...] might be different f rom the original. [id number] BRODY FARAH Date of : 1990 Start of care: 02/14/2012 Date of onset: 02/14/2012 Referring/Attending Practitioner: Janak Riojas MD . Primary/Referral Diagnosis/ICD-9: 355.71B CRPS (complex regional pain syndrome), lower limb Insurance: Payor: [facility] Compario [facility] Plan: BCBS OUT OF STATE Product Type: PP O Service period from: 02/14/2012 to: 08/12/2012 Number visits used/authorized: 12/26 [facility] PHYSICAL THERAPY PROGRESS NOTE SUBJECTIVE: [...] less stressful. Now she is working at [employer] 2-3 hours per week, and spends a [...] sometimes pain meds. Social History: lives in [place], 22 years old, not working currently, in [...] about therapy: she lives in [place]. She is r equesting family members or [...] in their status. [facility] Outpatient Rehabilitation Services Mailcode: Ch3p [address] [facility], 1st Floor [facility] [address] documented in this encounter Plan of Treatment Not on filedocumented as of this encounter Procedures + +--------+ + + + | Procedure Name | Priori | Date/Time | Associated Diagnosis | Comments | | | ty | | | | + +--------+ + + + | CA THERAPEUTIC | Routin | 05/03/2012 | CRPS [...]
--- OUTSIDE RECORDS SUMMARY | ~2019-08-12 | XMS | Encounter Summary ---
Demographics + + + | Address | [address] | | | [place] [address] | + + + | Home Phone [...] Team Providers + +------+ + | Care Artistic Associate Name | Role | Phone | + +------+ + | Justo Vazquez MD | PCP | | + +------+ + Encounter Details +--------+ + + + + | Date | Type | Department | Care Team | Description | +--------+ + + + + | 07/30/ | Telephone | [facility] | Alex Sanchez, | | | 2019 | | Pain Center at | ,PhD [address] | | | | | [facility] | [facility] [address] | | | | | [address] | [place], [place] | | | | | Mailcode: CH15P | [address] | | | | | [place] for [facility] | [phone] | | | | | and Healing, | | | | | | | | | | | | Floor [place], [place] | | | | | | [address] | | | | | | [phone] | | | +--------+ + + + [...]
--- OUTSIDE RECORDS SUMMARY | ~2019-08-12 | XMS | Encounter Summary ---
Demographics + + + | Address | [address] | | | [place] [address] | + + + | Home Phone [...] Team Providers + +------+ + | Care Brake Holder Name | Role | Phone | [...] + + | 03/29/ | Telephone | [facility] | Alex Sanchez, | Medication Refill | | 2018 | | Pain Center at | ,PhD [address] | Request (ketamine) | | | | [place] | Mook Giordano | | | | | [address] | [place], [place] | | | | | Mailcode: CH15P | [address] | | | | | [facility] | [phone] | | | | | and Healing, | | | | | | Building | | | | | | [place], [place] | | | | | | [address] | | | | | | [phone] | | | +--------+ + + + [...]
--- OUTSIDE RECORDS SUMMARY | ~2019-08-12 | XMS | Encounter Summary ---
Demographics + + + | Address | [address] | | | [place] [address] | + + + | Home Phone [...] Providers + +------+ + | Care Screen Printing Cloth Spreader Name | Role | Phone | + +------+ + | Allegra Gandhi | PCP | | + +------+ + Encounter Details +--------+ + + + + | Date | Type | Department | Care Team | Description | +--------+ + + + + | 08/02/ | Results | [facility] | Janak Riojas, | | | 2011 | Only | Pain Center at | MD [address] [facility] | | | | | [facility] | [facility] [address] | | | | | [address] | [place], [place] | | | | | Mailcode: CH15P | [address] | | | | | [place] for [facility] | [phone] | | | | | and Martina, | | | | | | | | | | | | Floor [place], [place] | | | | | | [address] | | | | | | [phone] | | | +--------+ + + + [...]
--- OUTSIDE RECORDS SUMMARY | ~2019-08-12 | XMS | Encounter Summary ---
Demographics + + + | Address | [address] | | | [place] [address] | + + + | Home Phone [...] Team Providers + +------+ + | Care Welt Sole Layer Name | Role | Phone | + +------+ + | Allegra Gandhi | PCP | | + +------+ + Encounter Details +--------+ + + + + | Date | Type | Department | Care Team | Description | +--------+ + + + + | 03/01/ | Results | [facility] | Janak Riojas, | | | 2011 | Only | Pain Center at | MD [address] [facility] | | | | | [facility] | [facility] [address] | | | | | [address] | [place], [place] | | | | | Mailcode: CH15P | [address] | | | | | [place] for [facility] | [phone] | | | | | and Martina, | | | | | | | | | | | | Floor [place], [place] | | | | | | [address] | | | | | | [phone] | | | +--------+ + + + [...]
--- OUTSIDE RECORDS SUMMARY | ~2019-08-12 | XMS | Encounter Summary ---
Demographics + + + | Address | [address] | | | [place] [address] | + + + | Home Phone [...] Providers + +------+ + | Care Wellness Nurse Rn Name | Role | Phone | [...] | | | | Procedures | [place], [place] | | | | | | MR | [id number] | | | | | | ENTEROGRAPHY | Phone: | | | | | | ABDOMEN AND | [phone] | | | | | | PELVIS WWO | Fax: | | | | | | CONTRAST | [phone] | | +--------+--------+ + + + + [...] pain, | | 2017 | Visit | [place] at [facility] [address] | [address] | unspecified location | | | | [address] | [address]iana [address]don[address] [place], | (Primary Dx) | | | | Mailcode: [place] | [place] [address] | | | | | for Health and | [phone] | | | | | [facility] 2 | | | | | | [place], [place] | | | | | | [address] | | | | | | [phone] | | | +--------+---------+ + + + [...] heavy metal poisoning 2) MR enterography - [phone] to schedule 3) can increase miralax to 6 times per day Return to clinic in 3 months Please feel free to call our clinic with any questions. [phone] Kenny Gaspar MD Fellow, Division of Gastroenterology [...] n their attached note. Celia Lin MD After School Coordinatorcable worker helper Division of Gastroenterology & Hepatology [facility] Kenny Dodge MD - 01/11 3:15 PM PST Gastroenterology Clinic Follow-Up Note 01/11/2017 CC/ID: Tracie Farah is a 26 F PMHx depression, complex regional pain syndrome(CRPS ) here for follow-up of n/v, abdominal pain INTERVAL HISTORY: Previously seen by Dr. Carbajal 08/10/16 - 10/2015 - hospitalized at [facility] for nausea/vomiting/pain -> [facility] -> [...] oral recon soln Take as directed by [facility]- 2 gallon bowel prep 8000 [...] + + | [facility] RAD[facility] | | | | | VOICE RECOGNITION | | | | + +---------+ + + documented in this encounter Visit Diagnoses + + | Diagnosis | + + | Abdominal pain, unspecified location - Primary | + + documented in this encounter
--- OUTSIDE RECORDS SUMMARY | ~2019-08-12 | XMS | Encounter Summary ---
Demographics + + + | Address | [address] | | | [place] [address] | + + + | Home Phone [...] + + | 07/28/ | Documentati | [facility] | Ilene Bright, | | | 2017 | on | Pain Center at | PEARL GLUE DRIER [address] | | | | | [facility] | Ave [place], [place] | | | | | [address] | [address] | | | | | Mailcode: CH15P | [phone] | | | | | [facility] | | | | | | and Healing, | | | | | | | | | | | | [place], [place] | | | | | | [address] | | | | | | [phone] | | | +--------+ + + + [...]
--- OUTSIDE RECORDS SUMMARY | ~2019-08-12 | XMS | Encounter Summary ---
Demographics + + + | Address | [address] | | | [place] [address] | + + + | Home Phone [...] Team Providers + +------+ + | Care Hvac R Tech Name | Role | Phone | [...] | | | | | regional | [address] | Mailcode: | | | | | pain | Mailstop | CH15P Center | | | | | syndrome), | [phone] | for Health | | | | | lower limb | [place], [place] | and Healing, | | | | | Gait | [address] | Building 1, | | | | | disturbance | Phone: | 15th Floor | | | | | Muscle pain | [phone] | [place], [place] | | | | | Procedures | Fax: | [address] | | | | | CONSULT TO | [phone] | Phone: | | | | | PAIN CENTER | | [phone] | | | | | | | Fax: | | | | | | | [phone] | +--------+--------+ + + + + Encounter Details +--------+---------+ + + + | Date | Type | Department | Care Team | Description | +--------+---------+ + + + | 02/28/ | Office | Pain Center at [facility] | Shelia Feldman, PhD | Unspecified | | 2011 | Visit | 15th Floor [address] | | adjustment reaction | | | | [address] Mailcode: | | (Primary Dx); Sleep | | | | CH15P [facility] | | disturbance, | | | | Health and Healing, | | unspecified | | | | Building | | | | | | Floor [place], [place] | | | | | | [address] | | | | | | [phone] | | | +--------+---------+ + + + [...] [facility] Name: Tracie Farah MR#: [id number] Date of : 1990 Date: February 29, [...] & Psychiatric History: Tracie Farah lives in [place] in a shared apartment space. She has struggled wi th CRPS for at least 5 years; original injury to her foot was in 2001. In summer 2010 she h ad inpt pain tx at [facility] with limited alf benefit. Recent [...] She learned some pain management techniques at [facility], mainly DB and PMR, which [...] Travel is a barrier; she lives in [place] DSM-IV Diagnoses/Impressions: Stamps I: 1. 309.9 Unspecified Adjustment Reaction 2. 780.50 Sleep Disturbance Stamps II: Deferred. Stamps III: Patient Active Problem List Diagnoses CRPS (complex regional pain syndrome), lower limb Gait disturbance Muscle pain Adjustment reaction Stamps IV: CRPS pain, pain related debility;difficulty attending class, working; family stres s; stalker ex-bf Stamps V: Global Assessment of Functioning = 75 [...] me should questions arise. SHELIA FELDMAN, PHD [place] Ragger Licensed Clinical Psychologist [facility] Department of Anesthesiology & Perioperative Medicine [facility] [address] [place] [address] documented in this enc ounter Plan of Treatment Not on filedocumented as of this encounter Visit Diagnoses + + | Diagnosis | + + | Unspecified adjustment reaction - Primary | + + | Sleep disturbance, unspecified | + + documented in this encounter
--- OUTSIDE RECORDS SUMMARY | ~2019-08-12 | XMS | Encounter Summary ---
Demographics + + + | Address | [address] | | | [place] [address] | + + + | Home Phone [...] Providers + +------+ + | Care General Technician Name | Role | Phone | [...] + + | 01/11/ | Telephone | [facility] Comprehensive | Alex Sanchez, | Referral To | | 2018 | | Pain Center at | ,PhD [address] | Orthopedics (discuss | | | | [facility] | [address] | ortho appointment) | | | | [address] | [place], [place] | | | | | Mailcode: CH15 | [address] | | | | | [facility] | [phone] | | | | | and Healing, | | | | | | | | | | | | [facility] [place] | | | | | | [address] | | | | | | [phone] | | | +--------+ + + + [...]
--- OUTSIDE RECORDS SUMMARY | ~2019-08-12 | XMS | Encounter Summary ---
Demographics + + + | Address | [address] | | | [place] [address] | + + + | Home Phone [...] Team Providers + +------+ + | Care Hanger Name | Role | Phone | + +------+ + | Justo Vazquez MD | PCP | | + +------+ + Encounter Details +--------+ + + + + | Date | Type | Department | Care Team | Description | +--------+ + + + + | 01/02/ | Telephone | [facility] | Ilene Bright, | | | 2019 | | Pain Center at | MOVEMENT ASSEMBLER [address] | | | | | [facility] | Ave [place], [place] | | | | | [address] | [address] | | | | | Mailcode: CH15P | [phone] | | | | | [facility] | | | | | | and Healing, | | | | | | | | | | | | [place], [place] | | | | | | [address] | | | | | | [phone] | | | +--------+ + + + [...]
--- OUTSIDE RECORDS SUMMARY | ~2019-08-12 | XMS | Encounter Summary ---
Demographics + + + | Address | [address] | | | [place] [address] | + + + | Home Phone [...] Team Providers + +------+ + | Care Drupal Web Developer Name | Role | Phone [...] Oliveira | | 2011 | IP | [address] | | House - Approved | | | | Giuliana Maldonado [place], | | | | | | [place] [address] | | | +--------+ + + + [...]
--- OUTSIDE RECORDS SUMMARY | ~2019-08-12 | XMS | Encounter Summary ---
Demographics + + + | Address | [address] | | | [place] [address] | + + + | Home Phone [...] Providers + +------+ + | Care Assistant Professor Of Life Sciences Name | Role | Phone | + +------+ + | Justo Vazquez MD | PCP | | + +------+ + Encounter Details +--------+ + + + + | Date | Type | Department | Care Team | Description | +--------+ + + + + | 12/07/ | Telephone | [facility] | Alex Sanchez, | | | 2019 | | Pain Center at | ,PhD [address] | | | | | [facility] | [address] | | | | | [address] | [place], [place] | | | | | Mailcode: CH15P | [address] | | | | | [place] for [facility] | [phone] | | | | | and Healing, | | | | | | | | | | | | Floor [place], [place] | | | | | | [address] | | | | | | [phone] | | | +--------+ + + + [...]
--- OUTSIDE RECORDS SUMMARY | ~2019-08-12 | XMS | Encounter Summary ---
Demographics + + + | Address | [address] | | | [place] [address] | + + + | Home Phone [...] Team Providers + +------+ + | Care Cleaner And Polisher Name | Role | Phone | + +------+ + | Justo Vazquez MD | PCP | | + +------+ + Encounter Details +--------+ + + + + | Date | Type | Department | Care Team | Description | +--------+ + + + + | 12/07/ | Telephone | [facility] | Alex Sanchez, | | | 2019 | | Pain Center at | ,PhD [address] | | | | | [facility] | [address] | | | | | [address] | [place], [place] | | | | | Mailcode: CH15P | [address] | | | | | [place] for [facility] | [phone] | | | | | and Healing, | | | | | | | | | | | | Floor [place], [place] | | | | | | [address] | | | | | | [phone] | | | +--------+ + + + [...]
--- OUTSIDE RECORDS SUMMARY | ~2019-08-12 | XMS | Encounter Summary ---
Demographics + + + | Address | [address] | | | [place] [address] | + + + | Home Phone [...] Oliveira | | 2011 | IP | [address] | | House - Approved | | | | Giuliana Maldonado [place], | | | | | | [place] [address] | | | +--------+ + + + [...]
--- OUTSIDE RECORDS SUMMARY | ~2019-08-12 | XMS | Encounter Summary ---
Demographics + + + | Address | [address] | | | [place] [address] | + + + | Home Phone [...] Providers + +------+ + | Care Application Project Leader Name | Role | Phone | [...] Review | | | | [facility] [place] [place] | | | | | | [address] | | | | | | Mailcode: OC2L | | | | | | [facility] | | | | | | and Martina, | | | | | | Building 2 | | | | | | [place], [place] | | | | | | [address] | | | | | | [phone] | | | +--------+ + + + [...]
--- OUTSIDE RECORDS SUMMARY | ~2019-08-12 | XMS | Encounter Summary ---
Demographics + + + | Address | [address] | | | [place] [address] | + + + | Home Phone [...] Providers + +------+ + | Care Vacuum Evaporation Operator Name | Role | Phone | [...] Medical Records | | 2017 | | [place] [address] [address] | [address] | Review | | | | [address] | [address] [place], | | | | | Mailcode: [place] | [place] [address] | | | | | for Health and | [phone] | | | | | [facility] 2 | | | | | | [place], [place] | | | | | | [address] | | | | | | [phone] | | | +--------+ + + + [...]
--- OUTSIDE RECORDS SUMMARY | ~2019-08-12 | XMS | Encounter Summary ---
Demographics + + + | Address | [address] | | | [place] [address] | + + + | Home Phone [...] Team Providers + +------+ + | Care Transfer And Pumphouse Operator Chief Name | Role | Phone | + +------+ + | Justo Vazquez MD | PCP | | + +------+ + Encounter Details +--------+ + + + + | Date | Type | Department | Care Team | Description | +--------+ + + + + | 09/25/ | Pharmacy | [facility] | | | | 2018 | Visit | & [facility] | | | | | | [address] | | | | | | Mailcode: [place] | | | | | | [facility] and | | | | | | Healing, Building [address] | | | | | | [facility] [place] | | | | | | [address] | | | | | | [phone] | | | +--------+ + + + [...]
--- OUTSIDE RECORDS SUMMARY | ~2019-08-12 | XMS | Encounter Summary ---
Demographics + + + | Address | [address] | | | [place] [address] | + + + | Home Phone [...] Team Providers + +------+ + | Care Padded Products Inspector Trimmer Name | Role | Phone | [...] Medical Records | | 2017 | | [place] [address] [address] | [address] | Review | | | | [address] | [address] [place], | | | | | Mailcode: [place] | [place] [address] | | | | | for Health and | [phone] | | | | | [facility] 2 | | | | | | [place], [place] | | | | | | [address] | | | | | | [phone] | | | +--------+ + + + [...]
--- OUTSIDE RECORDS SUMMARY | ~2019-08-12 | XMS | Encounter Summary ---
Demographics + + + | Address | [address] | | | [place] [address] | + + + | Home Phone [...] Providers + +------+ + | Care Machine Rough Rounder Name | Role | Phone | + [...] | | 2015 | | Center at [facility] [address] | MD Melissa | | | | | [address] | | | | | | Mailcode: Center | | | | | | for Health and | | | | | | [facility] 2 | | | | | | [place], [place] | | | | | | [address] | | | | | | [phone] | | | +--------+ + + + [...]
--- OUTSIDE RECORDS SUMMARY | ~2019-08-12 | XMS | Encounter Summary ---
Demographics + + + | Address | [address] | | | [place] [address] | + + + | Home Phone [...] Team Providers + +------+ + | Care Icu Staff Nurse Name | Role | Phone [...] | | [address] | [address] [place], | Abdominal pain | | | | Mailcode: [place] | [place] [address] | | | | | [facility] Health and | [phone] | | | | | [facility], [facility] 2 | | | | | | [place], [place] | | | | | | [address] | | | | | | [phone] | | | +--------+ + + + [...]
--- OUTSIDE RECORDS SUMMARY | ~2019-08-12 | XMS | Encounter Summary ---
Demographics + + + | Address | [address] | | | [place] [address] | + + + | Home Phone [...] Team Providers + +------+ + | Care Ceramist Name | Role | Phone | + +------+ + | Justo Vazquez MD | PCP | | + +------+ + Encounter Details +--------+------+ + + + | Date | Type | Department | Care Team | Description | +--------+------+ + + + | 12/14/ | Lab | Laboratory at [facility] | | Complex regional | | 2018 | | [address] | | pain syndrome type 1 | | | | [place], [place] | | of left lower | | | | [address] | | extremity; Muscle | | | | [phone] | | pain | +--------+------+ + + [...] + + | [facility] | [address] | [place] [address] | | | SERVICES, CORE | GUILLERMO [...]
--- OUTSIDE RECORDS SUMMARY | ~2019-08-12 | XMS | Encounter Summary ---
Demographics + + + | Address | [address] | | | [place] [address] | + + + | Home Phone [...] Team Providers + +------+ + | Care Thermostat Machine Tender Name | Role | Phone [...] Mook | sig) | | | | [facility] | [facility] | | | | | [address] | [place], [place] | | | | | Mailcode: CH15P | [address] | | | | | [facility] | [phone] | | | | | and Martina, | | | | | | Building | | | | | | [place], [place] | | | | | | [address] | | | | | | [phone] | | | +--------+ + + + [...]
--- OUTSIDE RECORDS SUMMARY | ~2019-08-12 | XMS | Encounter Summary ---
Demographics + + + | Address | [address] | | | [place] [address] | + + + | Home Phone [...] Team Providers + +------+ + | Care Bisque Brusher Name | Role | Phone | + +------+ + | Justo Vazquez MD | PCP | | + +------+ + Encounter Details +--------+ + + + + | Date | Type | Department | Care Team | Description | +--------+ + + + + | 01/31/ | Documentati | Vascular Access at | [place], | | | 2017 | on | [facility] [address] | [place] [address] | | | | | [address] | [address] | | | | | [facility] | [place], [place] | | | | | [place], [place] | [address] | | | | | [address] | | | | | | [phone] | | | +--------+ + + + [...]
--- OUTSIDE RECORDS SUMMARY | ~2019-08-12 | XMS | Encounter Summary ---
Demographics + + + | Address | [address] | | | [place] [address] | + + + | Home Phone [...] Providers + +------+ + | Care Product Designer Name | Role | Phone | [...] | | | | | syndrome | [facility] | [facility] | | | | | type [address] of | Rd | Rd [place], | | | | | left lower | [place], [place] | [place] | | | | | extremity | [address] | [address] | | | | | Procedures | Phone: | Phone: | | | | | REQUEST TO | [phone] | [phone] | | | | | SURGERY | Fax: | Fax: | | | | | FISHING ROD MECHANIC | [phone] | [phone] | +--------+---------+ + + + + Physical [...] | | | pain | [address] [facility] | [address] | | | | | syndrome | [facility] | [facility] | | | | | type 1 of | Rd | [place] | | | | | left lower | [place], [place] | [address] | | | | | extremity | [address] | Phone: | | | | | Procedures | Phone: | [phone] | | | | | PHYSICAL | [phone] | Fax: | | | | | THERAPY | Fax: | [phone] | | | | | REFERRAL | [phone] | | +--------+--------+ + + + + [...] | | | | | Procedures | [place], [place] | Rd [place], | | | | | CONSULT TO | [address] | [place] | | | | | PAIN | Phone: | [phone] | | | | | MANAGEMENT | [phone] | Phone: | | | | | | Fax: | [phone] | | | | | | [phone] | Fax: | | | | | | | [phone] | +--------+--------+ + + + + Encounter Details +--------+---------+ + + + | Date | Type | Department | Care Team | Description | +--------+---------+ + + + | 06/12/ | Office | [facility] Comprehensive | Alex Sanchez, | Complex regional | | 2018 | Visit | Pain Center at | ,PhD [address] [facility] [address] | pain syndrome type 1 | | | | [facility] | [facility] [address] | of left lower | | | | [address] | [place], [place] | extremity (Primary | | | | Mailcode: CH15P | [address] | Dx) | | | | Center for Health | [phone] | | | | | and Healing, | | | | | | | | | | | | Floor [place], [place] | | | | | | [address] | | | | | | [phone] | | | +--------+---------+ + + + [...] in the future, please contact me via Financuba to request an order to schedule. The procedure you discussed with your doctor is called: SCS DRG TRIAL LUMBAR [facility]. Please make sure this is scheduled with the Commercial Loan Manager. PRE-PROCEDURE INSTRUCTIONS 1. Please bring a tier truck driver with you as we may give you medications that impair your ability to drive. This is necessary even if you do not receive sedation. You may take a taxi or ri [place] if you are accompanied by a responsible [...] phone number for questions or concerns is [phone]. documented in this encounter Progress Notes Holly [...] the [facility] was May 08, [...] that this mildly agitated her neck pain. SERVOMECHANISM ASSEMBLER Brief Pain Inventory: (ten= worst possible [...] History Social History Narrative Single. Goes to [employer] with a light load. Has been working at [employer], can' t work on [employer]. Has roommates. Allergies Allergen Reactions Morphine Anaphylaxis [...] by physician. Concentration is 150mg/mL. Compounded by [facility] ) KETOROLAC IM Inject into [...] and summary of old medical records (source: [facility]), as summarized in the body of [...] to send me a mess age via Financuba to request referrals to acupuncture and massage [...] by Sonia Key. Alex Sanchez MD PhD Maintenance Fitter Anesthesiology and Pain Management [facility] documented in t his encounter Plan [...]
--- OUTSIDE RECORDS SUMMARY | ~2019-08-12 | XMS | Clinical Summary ---
Demographics + + + | Address | [address] | | | [place] [address] | + + + | Home Phone | | + + + | Preferred Language | Unknown | + + + | Marital Status | Single | + + + | Baptist Affiliation | 1073 | + + + | Race | Unknown | + + + | Ethnic Group | Unknown | + + + Author + + + | Author | [facility] | | | and [place] | + + + | Organization | [facility] | | | and [place] [...] [place] | | | | | [address] | | + + + + + | EDDY FARAH | ECON | Unknown | | + + + + + Care Team Providers + +------+ + | Care Parts Counter Associate Name | Role | Phone | [...] +--------+ +---------+--------+ | MEDICARE | MEDICA | [id number] | 07/15/20 | [phone] | | Medica | | | RE | | 15-Pre | 5 | | re | | | PART A | | sent | | | | | | AND B | | | | | | + +--------+ +--------+ +---------+--------+ | MEDICAID [place] | MEDICA | [id number] | | [phone] | | Medica | [...] | 1990 | [phone] | [place] [address] | | | evita | | | 6 (Home) | | + +--------+ +--------+ + +"
--- OUTSIDE RECORDS SUMMARY | ~2019-08-12 | XMS | Encounter Summary ---
Demographics + + + | Address | [address] | | | [place] [address] | + + + | Home Phone [...] Providers + +------+ + | Care Automotive Upholsterer Name | Role | Phone | [...] CRPS | Janak Martinez MD | [address] | | | | Management | (complex | [address] | | | | | regional | [address] | Mailcode: | | | | | pain | Mailstop | CH15P Center | | | | | syndrome), | [phone] | for Health | | | | | lower limb | [place], [place] | and Healing, | | | | | Gait | [address] | Building 1, | | | | | disturbance | Phone: | 15th Floor | | | | | Muscle pain | [phone] | [place], [place] | | | | | Procedures | Fax: | [address] | | | | | CONSULT TO | [phone] | Phone: | | | | | PAIN CENTER | | [phone] | | | | | | | Fax: | | | | | | | [phone] | +--------+--------+ + + + + Encounter Details +--------+---------+ + + + | Date | Type | Department | Care Team | Description | +--------+---------+ + + + | 03/20/ | Office | Pain Center at [facility] | Shelia Feldman, PhD | Unspecified | | 2011 | Visit | 15th Floor [address] | | adjustment reaction | | | | [address] Mailcode: | | (Primary Dx) | | | | CH15P [facility] | | | | | | Health and Healing, | | | | | | | | | | | | Floor [place], [place] | | | | | | [address] | | | | | | [phone] | | | +--------+---------+ + + + [...] [facility] Name: Tracie Farah MR#: [id number] Date of : 1990 Date: March 20, 2012 Attending Psychologist: SHELIA FELDMAN, PHD CPT: 30513 Duration: 60min Psych: 309.0 Pain: 355.71 Tracie arrived on time for today's appointment, casually dressed and neatly groomed. Affect was appropriate, mood normothymic. She drove herself today and used crutches. She stated t hat she was doing "better", mainly because she has returned to work at [employer]. She is wo rking about 2 hour [...] discretion, not currently planned. SHELIA FELDMAN, PHD Supervisor Floor Assembly Licensed Clinical Psychologist [facility] Department of Anesthesiology & Perioperative Medicine [facility] [address] [place] [address] Historical Information: Introduction: Tracie Farah is a 21-year-old woman with >5 year hx of CRPS, R LE.S ocial & Psychiatric History: Tracie Farah lives in [place] in a shared apartment space. She has struggled wi th CRPS for at least 5 years; original injury to her foot was in 2001. In summer 2010 she h ad inpt pain tx at [facility] with limited detention benefit. Recent flare; [...] She learned some pain management techniques at [facility], mainly DB and PMR, which [...] Travel is a barrier; she lives in [place] DSM-IV Diagnoses/Impressions: [place] I: 1. 309.9 Unspecified Adjustment Reaction 2. 780.50 Sleep Disturbance [place] II: Deferred. [place] III: Patient Active Problem List Diagnoses CRPS (complex regional pain syndrome), lower limb Gait disturbance Muscle pain Adjustment reaction [place] IV: CRPS pain, pain related debility;difficulty attending class, working; family stres s; stalker ex-bf [place] V: Global Assessment of Functioning = 75 [...] me should questions arise. SHELIA FELDMAN, PHD Supervisor Floor Assembly Licensed Clinical Psychologist [facility] Department of Anesthesiology & Perioperative Medicine [facility] [address] [place] [address] documented in this enc ounter Plan of Treatment Not on filedocumented as of this encounter Visit Diagnoses + + | Diagnosis | + + | Unspecified adjustment reaction - Primary | + + documented in this encounter
--- OUTSIDE RECORDS SUMMARY | ~2019-08-12 | XMS | Encounter Summary ---
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 Surgery check-in location: [facility] Day Stay - [place] for Health and Healing, 4th floor Surgery [...] it is after office hours, call the [facility] shear grinder operator helper at [phone] and ask them to page him or h er. documented in this encounter Progress Notes Catie Smart NP - 11/27/2018 2:05 PM PST PREOPERATIVE CONSULT NOTE Author: Catie Smart NP Referring Physician: Alex Sanchez MD Primary Care Provider: Justo Vazquez MD Reason for Consult: Preoperative evaluation and risk assessment Proposed Procedure/Date: implant SCS; 12/05/2018 Proposed Procedure Location: [facility] HISTORY OF PRESENT ILLNESS: Tracie Farah [...] renal failure no electrolyte abnormalities no dialysis Urology/Assistant Attorney General: Interstitial cystitis LMP: irreg bleeding, ~11/14/2018, IUD [...] oral recon soln Take as directed by [facility] Unipower Battery [facility]- 2 gallon bowel prep polyethylene [...] Trial spinal cord stimulator leads 08/02/2012 [facility], Surgeon: [...] patient is a lso currently scheduled at [facility] [place] and is meeting inclusion criteria [...] to this patient's care. Catie Smart NP [facility] PBB PREOPERATIVE MEDICINE CLINIC AT [facility] 4TH FLOOR [address] [facility] [address] I advised the patient regarding NPO [...]
--- OUTSIDE RECORDS SUMMARY | ~2019-08-12 | XMS | Encounter Summary ---
Demographics + + + | Address | [address] | | | [place] [address] | + + + | Home Phone [...] Team Providers + +------+ + | Care Goldbeater Name | Role | Phone | + +------+ + | Justo Vazquez MD | PCP | | + +------+ + Encounter Details +--------+ + + + + | Date | Type | Department | Care Team | Description | +--------+ + + + + | 03/16/ | Telephone | Digestive Health | Crys Gomez, | | | 2017 | | [facility] at [address] | [address] | | | | | [address] | [address] | | | | | Mailcode: Center | [place], [place] | | | | | [facility] and | [address] | | | | | [facility] [address] | [phone] | | | | | [place], [place] | | | | | | [address] | | | | | | [phone] | | | +--------+ + + + [...]
--- OUTSIDE RECORDS SUMMARY | ~2019-08-12 | XMS | Encounter Summary ---
Demographics + + + | Address | [address] | | | [place] [address] | + + + | Home Phone [...] Providers + +------+ + | Care Technical Programs Manager Name | Role | Phone | [...] evaluation (No | | | | [facility] | [facility] [id number] | evidence of drug | | | | [address] | [place], [place] | abuse) | | | | Mailcode: CH15 | [address] | | | | | [facility] | [phone] | | | | | and Healing, | | | | | | Building | | | | | | Floor [place], [place] | | | | | | [address] | | | | | | [phone] | | | +--------+ + + + [...]
--- OUTSIDE RECORDS SUMMARY | ~2019-08-12 | XMS | Encounter Summary ---
Demographics + + + | Address | [address] | | | [place] [address] | + + + | Home Phone [...] Providers + +------+ + | Care Lead Maintenance Technician Name | Role | Phone [...] + + | 09/14/ | Telephone | [facility] Comprehensive | Alex Sanchez, | Education procedure | | 2018 | | Pain Center at | ,PhD [address] | (preprocedure | | | | [facility] | [address] | education SCS) | | | | [address] | [place], [place] | | | | | Mailcode: CH15P | [address] | | | | | [facility] | [phone] | | | | | and Martina, | | | | | | | | | | | | Floor [place], [place] | | | | | | [address] | | | | | | [phone] | | | +--------+ + + + [...]
--- OUTSIDE RECORDS SUMMARY | ~2019-08-12 | XMS | Encounter Summary ---
Demographics + + + | Address | [address] | | | [place] [address] | + + + | Home Phone [...] Providers + +------+ + | Care Relay Tester Helper Name | Role | Phone | [...] [address] | sig) | | | | [facility] | [facility] | | | | | [address] | [place], [place] | | | | | Mailcode: CH15P | [address] | | | | | [facility] | [phone] | | | | | and Martina, | | | | | | Building | | | | | | [place], [place] | | | | | | [address] | | | | | | [phone] | | | +--------+ + + + [...]
--- OUTSIDE RECORDS SUMMARY | ~2019-08-12 | XMS | Encounter Summary ---
Demographics + + + | Address | [address] | | | [place] [address] | + + + | Home Phone [...] Providers + +------+ + | Care Medical Sales Consultant Name | Role | Phone [...] + + | 01/11/ | Telephone | [facility] Comprehensive | Alex Sanchez, | Referral To | | 2018 | | Pain Center at | ,PhD [address] | Orthopedics (discuss | | | | [facility] | [address] | ortho appointment) | | | | [address] | [place], [place] | | | | | Mailcode: CH15 | [address] | | | | | [facility] | [phone] | | | | | and Healing, | | | | | | | | | | | | [facility] [place] | | | | | | [address] | | | | | | [phone] | | | +--------+ + + + [...]
--- OUTSIDE RECORDS SUMMARY | ~2019-08-12 | XMS | Encounter Summary ---
Demographics + + + | Address | [address] | | | [place] [address] | + + + | Home Phone [...] Providers + +------+ + | Care Residence Supervisor Name | Role | Phone | [...] | Diagnoses | Beulah | Edu Pt Religious Education Director | | | | Therapy | CRPS | Janak Martinez MD | [address] | | | | | (complex | [address] | | | | | regional | [address] | Mailcode: | | | | | pain | Mailstop | CH3P Center | | | | | syndrome), | [id number] | for Health | | | | | lower limb | [place], [place] | and Healing, | | | | | Gait | [address] | Building 1 | | | | | disturbance | Phone: | [place], [place] | | | | | Muscle pain | [phone] | [address] | | | | | Procedures | Fax: | Phone: | | | | | PHYSICAL | [phone] | [phone] | | | | | THERAPY | [...] | | | [place] | Ave [place], [place] | syndrome), lower | | | | [address] | [phone] | limb (Primary Dx) | | | | Mailcode: CH3P | | | | | | [facility] | | | | | | and Healing, | | | | | | Building [address] | | | | | | Floor [place], [place] | | | | | | [address] | | | | | | [phone] | | | +--------+---------+ + + + [...] might be different f rom the original. [id number] BRODY FARAH Date of : 1990 Start of care: 02/14/2012 Date of onset: 02/14/2012 Referring/Attending Practitioner: Janak Riojas MD . Primary/Referral Diagnosis/ICD-9: 355.71B CRPS (complex regional pain syndrome), lower limb Insurance: Payor: [facility] Plan: BCBS OUT OF STATE Product Type: PP O Service period from: 02/14/2012 to: 08/12/2012 Number visits used/authorized: 03/25 [facility] PHYSICAL THERAPY PROGRESS NOTE SUBJECTIVE: Age: [...] change in their status. Guillermo Sanon MSPT [facility] Outpatient Rehabilitation Services Mailcode: Ch3p [address] [facility], [address] [place] [phone] documented in this encounter Plan of Treatment Not on filedocumented as of this encounter Procedures + +--------+ + + + | Procedure Name | Priori | Date/Time | Associated Diagnosis | Comments | | | ty | | | | + +--------+ + + + | ID MANUAL THER | Routin | 06/05/2012 | CRPS (complex | | | TECH,1+REGIONS,EA 15 | e | 5:15 PM | regional pain | | | MIN | | PDT | syndrome), lower | | | | | | limb | | + +--------+ + + + | ID THERAPEUTIC | Routin | 06/05/2012 | CRPS [...]
--- OUTSIDE RECORDS SUMMARY | ~2019-08-12 | XMS | Encounter Summary ---
Demographics + + + | Address | [address] | | | [place] [address] | + + + | Home Phone [...] Providers + +------+ + | Care Field Artillery Operations Man Name | Role | Phone | [...] | | Center at [facility] [address] | MD Melissa | | | | | [address] | | | | | | Mailcode: Center | | | | | | for Health and | | | | | | Healing, [facility] 2 | | | | | | [place], [place] | | | | | | [address] | | | | | | [phone] | | | +--------+ + + + [...]
--- OUTSIDE RECORDS SUMMARY | ~2019-08-12 | XMS | Encounter Summary ---
Demographics + + + | Address | [address] | | | [place] [address] | + + + | Home Phone [...] Team Providers + +------+ + | Care Calender Runner Name | Role | Phone | [...] Oliveira | | 2011 | IP | [address] | | House - Approved | | | | Giuliana Maldonado [place], | | | | | | [place] [address] | | | +--------+ + + + [...]
--- OUTSIDE RECORDS SUMMARY | ~2019-08-12 | XMS | Encounter Summary ---
Demographics + + + | Address | [address] | | | [place] [address] | + + + | Home Phone [...] Providers + +------+ + | Care Executive Steward Name | Role | Phone | [...] | | Pain Center at | ,PhD [address] | | | | | [facility] | [address] | | | | | [address] | [place], [place] | | | | | Mailcode: CH15P | [address] | | | | | [facility] | [phone] | | | | | and Martina, | | | | | | [facility] | | | | | | [place], [place] | | | | | | [address] | | | | | | [phone] | | | +--------+ + + + [...]
--- OUTSIDE RECORDS SUMMARY | ~2019-08-12 | XMS | Encounter Summary ---
Demographics + + + | Address | [address] | | | [place] [address] | + + + | Home Phone [...] Team Providers + +------+ + | Care Reinstatement Clerk Name | Role | Phone | [...] | Diagnoses | Beulah | Edu Pt Rubber Off | | | | Therapy | CRPS | Janak Martinez MD | [address] | | | | | (complex | [address] | [address] | | | | | regional | [address] | Mailcode: | | | | | pain | Mailstop | [facility] Center | | | | | syndrome), | [phone] | for Health | | | | | lower limb | [place], [place] | and Healing, | | | | | Gait | [address] | Building 1 | | | | | disturbance | Phone: | [place], [place] | | | | | Muscle pain | [phone] | [address] | | | | | Procedures | Fax: | Phone: | | | | | PHYSICAL | [phone] | [phone] | | | | | THERAPY | [...] | | | [place] | Ave [place], [place] | syndrome), lower | | | | [address] | [phone] | limb (Primary Dx) | | | | Mailcode: CH3P | | | | | | [facility] | Specialist, Edu | | | | | and Healing, | Exercise [address] | | | | | Building | [address] [place], | | | | | Floor [place], [place] | [place] [address] | | | | | [address] | | | | | | [phone] | | | +--------+---------+ + + + [...] might be different f rom the original. [id number] BRODY FARAH Date of : 1990 Start of care: 02/14/2012 Date of onset: 02/14/2012 Referring/Attending Practitioner: Janak Riojas MD . Primary/Referral Diagnosis/ICD-9: 355.71B CRPS (complex regional pain syndrome), lower limb Insurance: Payor: [facility] [employer] [facility] Plan: BCBS OUT OF STATE Product Type: PP O Service period from: 02/14/2012 to: 08/12/2012 Number visits used/authorized: 02/23 [facility] PHYSICAL THERAPY PROGRESS NOTE SUBJECTIVE: Age: [...] any change in their status. Guillermo Sanon [facility] Outpatient Rehabilitation Services Mailcode: Ch3p [address] [facility], [address] [place] [phone] documented in this encounter Plan of Treatment Not on filedocumented as of this encounter Procedures + +--------+ + + + | Procedure Name | Priori | Date/Time | Associated Diagnosis | Comments | | | ty | | | | + +--------+ + + + | [place] THERAPEUTIC | Routin | 05/24/2012 | CRPS (complex | | | EXERCISES | e | 6:23 PM | regional pain | | | | | PDT | syndrome), lower | | | | | | limb | | + +--------+ + + + | [place] THERAPEUTIC | Routin | 05/24/2012 | CRPS [...]
--- OUTSIDE RECORDS SUMMARY | ~2019-08-12 | XMS | Encounter Summary ---
Demographics + + + | Address | [address] | | | [place] [address] | + + + | Home Phone [...] Team Providers + +------+ + | Care Gallery Or Museum Attendant Name | Role | Phone [...] | | | | | Giuliana Maldonado [place], | | | | | | [place] [address] | | | +--------+ + + + [...]
--- OUTSIDE RECORDS SUMMARY | ~2019-08-12 | XMS | Encounter Summary ---
Demographics + + + | Address | [address] | | | [place] [address] | + + + | Home Phone [...] Team Providers + +------+ + | Care Edge Runner Name | Role | Phone | [...] 2016 | | Pain Center at | PUMPER GAGER APPRENTICE [address] | | | | | [facility] | [place], [place] | | | | | [address] | [address] | | | | | Mailcode: CH15P | [phone] | | | | | [facility] | | | | | | joana Mack, | | | | | | Building | | | | | | [place], [place] | | | | | | [address] | | | | | | [phone] | | | +--------+ + + + [...]
--- OUTSIDE RECORDS SUMMARY | ~2019-08-12 | XMS | Encounter Summary ---
Demographics + + + | Address | [address] | | | [place] [address] | + + + | Home Phone [...] Providers + +------+ + | Care Windows Vmware Administrator Name | Role | Phone | [...] | | | | | Procedures | [place], [place] | | | | | | MR | [id number] | | | | | | ENTEROGRAPHY | Phone: | | | | | | ABDOMEN AND | [phone] | | | | | | PELVIS WWO | Fax: | | | | | | CONTRAST | [phone] | | +--------+--------+ + + + + [...] pain, | | 2017 | Visit | [facility] at [facility] [address] | [address] | unspecified location | | | | [address] | Giuliana Maldonado [place], | (Primary Dx) | | | | Mailcode: [place] | [place] [address] | | | | | for Health and | [phone] | | | | | [facility] | | | | | | [place], [place] | | | | | | [address] | | | | | | [phone] | | | +--------+---------+ + + + [...] heavy metal poisoning 2) MR enterography - [phone] to schedule 3) can increase miralax to 6 times per day Return to clinic in 3 months Please feel free to call our clinic with any questions. [phone] Kenny Gaspar MD Fellow, Division of Gastroenterology [...] n their attached note. Celia Lin MD Salon Receptionistpreschool disability teacher Division of Gastroenterology & Hepatology [facility] Kenny Dodge MD - 01/11 3:15 PM PST Gastroenterology Clinic Follow-Up Note 01/11/2017 CC/ID: Tracie Farah is a 26 F PMHx depression, complex regional pain syndrome(CRPS ) here for follow-up of n/v, abdominal pain INTERVAL HISTORY: Previously seen by Dr. Carbajal 08/10/16 - 10/2015 - hospitalized at [facility] for nausea/vomiting/pain -> [facility] -> CT [...] oral recon soln Take as directed by [facility]- 2 gallon bowel prep 8000 mL [...] | | + +---------+ + + | [facility] | | | | | VOICE RECOGNITION | | | | + +---------+ + + documented in this encounter Visit Diagnoses + + | Diagnosis | + + | Abdominal pain, unspecified location - Primary | + + documented in this encounter
--- OUTSIDE RECORDS SUMMARY | ~2019-08-12 | XMS | Encounter Summary ---
Demographics + + + | Address | [address] | | | [place] [address] | + + + | Home Phone [...] Team Providers + +------+ + | Care Healthcare Translator Name | Role | Phone | + [...] | | Pain Center at | ,PhD [address] | denied) | | | | [facility] | [address] | | | | | [address] | [place], [place] | | | | | Mailcode: CH15P | [address] | | | | | [facility] | [phone] | | | | | and Martina, | | | | | | Building | | | | | | Floor [place], [place] | | | | | | [address] | | | | | | [phone] | | | +--------+ + + + [...]
--- OUTSIDE RECORDS SUMMARY | ~2019-08-12 | XMS | Encounter Summary ---
Demographics + + + | Address | [address] | | | [place] [address] | + + + | Home Phone [...] Providers + +------+ + | Care Dye House Helper Name | Role | Phone | [...] | Complex | Alex Alba, | [facility] [address] | | | | | regional | ,PhD [address] | | | | | pain | [address] | Giuliana Maldonado | | | | | syndrome | [address] | Mailcode: | | | | | type [address] of | [address] | [address] | | | | | left lower | [place], [place] | [address] | | | | | extremity | [address] | [place], [place] | | | | | Muscle pain | Phone: | [address] | | | | | Procedures | [phone] | Phone: | | | | | NM BONE | Fax: | [phone] | | | | | &/OR JOINT | [phone] | Fax: | | | | | IMAGING | | [phone] | | | | | TOMOGRAPHIC | [...] + + | 12/27/ | Ancillary | [facility] | Alex Sanchez, | | | 2018 | Orders | Pain Center at | ,PhD [address] [facility] [address] | | | | | [facility] | [address] | | | | | [address] | [place], [place] | | | | | Mailcode: CH15P | [address] | | | | | [facility] | [phone] | | | | | and Martina, | | | | | | Building | | | | | | [place], [place] | | | | | | [address] | | | | | | [phone] | | | +--------+ + + + [...]
--- OUTSIDE RECORDS SUMMARY | ~2019-08-12 | XMS | Encounter Summary ---
Demographics + + + | Address | [address] | | | [place] [address] | + + + | Home Phone [...] Providers + +------+ + | Care Vaccine Specialist Name | Role | Phone | [...] 2017 | | Pain Center at | SEAT JOINER [address] | | | | | [facility] | Ave [place], [place] | | | | | [address] | [address] | | | | | Mailcode: CH15P | [phone] | | | | | [facility] | | | | | | and Healing, | | | | | | Building | | | | | | Floor [facility] [place] | | | | | | [address] | | | | | | [phone] | | | +--------+ + + + [...]
--- OUTSIDE RECORDS SUMMARY | ~2019-08-12 | XMS | Encounter Summary ---
Demographics + + + | Address | [address] | | | [place] [address] | + + + | Home Phone [...] Team Providers + +------+ + | Care Rim Roller Setter Name | Role | Phone | + +------+ + | Justo Vazquez MD | PCP | | + +------+ + Encounter Details +--------+ + + + + | Date | Type | Department | Care Team | Description | +--------+ + + + + | 12/28/ | Addictions Recovery Specialist | [facility] Comprehensive | Alex Sanchez, | Arthralgia of lower | | 2018 | | Pain Center at | ,PhD [address] | leg, unspecified | | | | [facility] | [address] | laterality (Primary | | | | [address] | [place], [place] | Dx) | | | | Mailcode: CH15P | [address] | | | | | [place] for [facility] | [phone] | | | | | and Healing, | | | | | | [facility] | | | | | | Floor [place], [place] | | | | | | [address] | | | | | | [phone] | | | +--------+ + + + [...]
--- OUTSIDE RECORDS SUMMARY | ~2019-08-12 | XMS | Encounter Summary ---
Demographics + + + | Address | [address] | | | [place] [address] | + + + | Home Phone [...] Team Providers + +------+ + | Care Sign Wirer Name | Role | Phone | + +------+ + | Justo Vazquez MD | PCP | | + +------+ + Encounter Details +--------+ + + + + | Date | Type | Department | Care Team | Description | +--------+ + + + + | 01/09/ | Documentati | Orthopaedics at | Ranjeet Amanda, | | | 2018 | on | [facility] [address] | [address] | | | | | Ave Mailcode: CH12A | [facility] [place] | | | | | [place] for [facility] | [address] | | | | | and Healing, | [phone] | | | | | | | | | | | Floor [facility] [place] | | | | | | [address] | | | | | | [phone] | | | +--------+ + + + [...]
--- OUTSIDE RECORDS SUMMARY | ~2019-08-12 | XMS | Encounter Summary ---
Demographics + + + | Address | [address] | | | [place] [address] | + + + | Home Phone [...] Providers + +------+ + | Care Operations Supervisor Chemical Cleaning Name | Role | Phone | [...] + + | 08/03/ | Refill | [facility] | Alex Sanchez, | Refill Request | | 2018 | | Pain Center at | ,PhD [address] | (ketamine) | | | | [facility] | [facility] | | | | | [address] | [place], [place] | | | | | Mailcode: CH15P | [address] | | | | | [facility] | [phone] | | | | | and Martina, | | | | | | Building | | | | | | Floor [place], [place] | | | | | | [address] | | | | | | [phone] | | | +--------+--------+ + + + [...]
--- OUTSIDE RECORDS SUMMARY | ~2019-08-12 | XMS | Encounter Summary ---
Demographics + + + | Address | [address] | | | [place] [address] | + + + | Home Phone [...] + +------+ + | Care Speech And Hearing Clinic Director Name | Role | Phone | [...] + + | 03// | Telephone | [facility] | Alex Sanchez, | Medication (clarify | | 2018 | | Pain Center at | ,PhD [address] | sig on Ketamine) | | | | [facility] | [facility] | | | | | [address] | [place], [place] | | | | | Mailcode: CH15P | [address] | | | | | [facility] | [phone] | | | | | and Healing, | | | | | | Building | | | | | | Floor [facility] [place] | | | | | | [address] | | | | | | [phone] | | | +--------+ + + + [...]
--- OUTSIDE RECORDS SUMMARY | ~2019-08-12 | XMS | Encounter Summary ---
Demographics + + + | Address | [address] | | | [place] [address] | + + + | Home Phone [...] Providers + +------+ + | Care Marketing Executive Name | Role | Phone | [...] | | | | | extremity | [address] | [address] | | | | | Muscle pain | Phone: | Phone: | | | | | Procedures | [phone] | [phone] | | | | | REQUEST TO | Fax: | Fax: | | | | | SURGERY | [phone] | [phone] | | | | | INCOME TAX INVESTIGATOR | | | | | | | SC INJ,ANES | | | | | | | AGENT,SCIATI | | | | | | | C | | | | | | | NERVE,SINGLE | | | | | | | SC INJECT | | | | | | | NERV | | | | | | | BLCK,OTHR | | | | | | | PERIPH NERV | | | | | | | SC SONO | | | | | | | GUIDE FOR | | | | | | | NEEDLE | | | | | | | PLACEMENT | | | | | | | SC MOD | | | | | | | SEDATION | | | | | | | >=5YRS SAME | | | | | | | MD/QUAL | | | | | | | PROV; INIT | | | | | | | 15 MIN SC | | | | | | [...] [facility] | Alex Sanchez, | Pain in left leg; | | 2017 | | Floor [address] | ,PhD [address] | Procedure | | | | [address] Mailcode: | [address] | | | | | CH15P Center for | [place], [place] | | | | | Health and Healing, | [address] | | | | | | [phone] | | | | | Floor [place], [place] | | | | | | [address] | | | | | | [phone] | | | +--------+ + + + [...] mi nayelit be different from the original. [facility] Pain Center Patient Instructions - Post Interventional Procedure Date: 12/27/2017 Name: Tracie Farah Date of : 1990 Procedure Performed: trigger point injection and popliteal/sciatic block. Procedure Provider: Alex Sanchez MD,PhD If you have any problems you believe are associated with your procedure tonight, Please call the Hospital Peat Shredder Tender, and ask for the Pain Management Consu ltant. If you have problems or questions between 9:00 am and 4:00 pm, Please call the [facility] Pain Center Nurse Triage [...] paper. Please fax the pain diary to [phone] or attach a scanned image of it to a [employer] message to your doct or.. The area [...] to the larry ent. David Linares MD [facility] documented in this encounter Progress Notes Alex Sanchez MD,PhD - 12/27/2017 3:00 PM PSTI was present for the entire procedure ( popliteal nerve block and abdominal scar neuroma injection) and all bocanegra elements of this vis it. I reviewed the documentation of the other [facility] providers and concur with Dr. Linares's findings. I edited his note. Alex Sanchez MD,PhD Home Office Representative Anesthesiology and Pain Management [facility] Hartly David Pennington MD - 12/27/2017 3:00 PM PSTPROVIDER OPERATIVE NOTE Date: December 27, 2017 Location: [facility] Procedure Room Tracie Farah [id number] :1990, presents to clinic for: PROCEDURE: Popliteal/sciatic [...] scar neuroma ATTENDING PHYSICIAN: Alex Sanchez MD,PhD PROOF CLERK: Fellow David Linares MD ANESTHESIA: sedation Isadora [...] escorted to the [facility] Procedure R oom, where she [...] procedure. Images were saved, and sent to [employer]. Ms. Farah was transported to the [facility] Pain Center post-procedure recovery area. [...] by physician. Concentration is 150mg/mL. Compounded by [facility] ) LEVONORGESTREL 20 MCG/24 HR (5 [...] [facility]- 2 gallon bowel prep POLYETHYLENE [...] PRE-SEDATION: Date: December 27, 2017 Tracie Farah [id number] 1990 ALLERGIES: Morphine Previous reaction to Sedation/Analgesia: [...] PRE-SEDATION: Date: December 27, 2017 Tracie Farah [id number] 1990 See RN /PUBLIC HEALTH EDUCATOR Pre-Sedation Note. IV ACCESS:Right subc PAC. BASELINE VS: See Sedation Flow Sheet. Tracie Ocampojulita Farah [id number] 1990, presents to clinic for: Procedure: left [...] started. 1530 Midazolam 2mg IV given 1530 [id number] mcg IV given 1534 Midazolam 1mg IV given 1546 Midazolam 1mg IV given 1546 [id number] mcg IV given 1548 Fentanyl 100 mcg IV given bupivacaine 0.5%, 9mL given, 21mL wasted Kenalog 40mg/mL 1mL, 0 mL wasted 1555 abdominal scar trigger point completed. 1558 Fentanyl 50 mcg IV given 1601 Fentanyl 50 mcg IV given [place] placed for Popliteal Nerve Block.. Placement verified [...] + +--------+ + + + | SC INJECT NERV | Routin | 12/27/2017 | Complex regional | | | BLCK,OT PERIPH | e | 4:32 PM | pain syndrome type 1 | | | NERV | | PST | of left lower | | | | | | extremity | | + +--------+ + + + | SC ROPIVACAINE HCL | Routin | 12/27/2017 | Complex regional | | | INJ 0.5% | e | 4:32 PM | pain syndrome type 1 | | | | | PST | of left lower | | | | | | extremity | | + +--------+ + + + | SC MOD SEDATION | Routin | 12/27/2017 | Complex regional | | | >=5YRS SAME MD/QUAL | e | 4:32 PM | pain syndrome type 1 | | | PROV; INIT 15 MIN | | PST | of left lower | | | | | | extremity | | + +--------+ + + + documented in this encounter Results UNDERLAY STITCHER MISC PROCEDURE (12/27/2017 3:28 PM PST) + [...]
--- OUTSIDE RECORDS SUMMARY | ~2019-08-12 | XMS | Encounter Summary ---
Demographics + + + | Address | [address] | | | [place] [address] | + + + | Home Phone [...] Team Providers + +------+ + | Care Template Inspector Name | Role | Phone | + +------+ + | Justo Vazquez MD | PCP | | + +------+ + Encounter Details +--------+ + + + + | Date | Type | Department | Care Team | Description | +--------+ + + + + | 07/26/ | MyChart | [facility] Comprehensive | Ilene Bright, | Labs | | 2017 | Encounter | Pain Center at | INFERTILITY NURSE [address] | | | | | [facility] | Ave [place], [place] | | | | | [address] | [address] | | | | | Mailcode: CH15 | [phone] | | | | | [facility] | | | | | | and Healing, | | | | | | | | | | | | [place], [place] | | | | | | [address] | | | | | | [phone] | | | +--------+ + + + [...]
--- OUTSIDE RECORDS SUMMARY | ~2019-08-12 | XMS | Encounter Summary ---
Demographics + + + | Address | [address] | | | [place] [address] | + + + | Home Phone [...] Providers + +------+ + | Care Director Employee Communications Name | Role | Phone | [...] + + | 10/07/ | Telephone | [facility] Comprehensive | Yosef Kenney MD | Wound infection | | 2018 | | Pain Center at | [address] | (Concern for DRG | | | | [facility] | [address] [place], | trial wound | | | | [address] | [place] [address] | infection) | | | | Mailcode: CH15P | [phone] | | | | | [facility] | | | | | | and Healing, | | | | | | | | | | | | Floor [place], [place] | | | | | | [address] | | | | | | [phone] | | | +--------+ + + + [...]
--- OUTSIDE RECORDS SUMMARY | ~2019-08-12 | XMS | Encounter Summary ---
Demographics + + + | Address | [address] | | | [place] [address] | + + + | Home Phone [...] Team Providers + +------+ + | Care Operating Table Assembler Name | Role | Phone | [...] Rd | | | | | | [place], [place] | | | | | | [address] | | | +--------+ + + + [...]
--- OUTSIDE RECORDS SUMMARY | ~2019-08-12 | XMS | Encounter Summary ---
Demographics + + + | Address | [address] | | | [place] [address] | + + + | Home Phone [...] Providers + +------+ + | Care Pattern Marker Name | Role | Phone | [...] + + | 12/05/ | Surgery | [facility] INTRA OP | Alex Sanchez, | BILATERAL DORSAL | | 2019 | | Center for Health | ,PhD [address] [facility] | ROOT GANGLION SPINAL | | | | and Healing Surgery | [address] | CORD STIMULATOR | | | | Center Admitting | [place], [place] | IMPLANT LUMBAR; | | | | Desk Located on the | [address] | POSTERIOR | | | | 4th floor [address] | [phone] | | | | | [address] [place], | | | | | | [place] [address] | | | +--------+---------+ + + + [...] s/p successful DRG trial lead system with [employer] System on 09/25/2018. No changes in H&P, [...] Date: December 05, 2018 Location: [facility] [place] | | | Tracie Farha [id number] :1990, presents to clinic | | | for: Dorsal root ganglion stimulator implant PROCEDURE: Dorsal | | | root ganglion stimulator implant PRE-OPERATIVE DIAGNOSIS: Complex | | | regional Pain syndrome type 1 of left lower extremity | | | POST-OPERATIVE DIAGNOSIS: Complex regional Pain syndrome type 1 of | | | left lower extremity ATTENDING PHYSICIAN: Alex Sanchez | | | RN PROGRESSIVE CARE UNIT: Arben Valerio MD ANESTHESIA: sedation by IVIS Cole | | | Carmen, supervised by hotel attendant Ilir Valdes. | | | FINDINGS: Appropriate [...] | | escorted to the [facility] [place], where she was positioned [...] to the | | | [facility] patient services representative. A test stimulation was performed [...] recovery. Images were saved, and sent to [employer]. | | | Alex Sanchez (attending) was present for the entire procedure. | | | Arben Valerio MD I was present for the entire procedure | | | (spinal cord stimulator implantation with DRG leads at left L4 and | | | L5) and all bocanegra elements of this visit. I reviewed the | | | documentation of the other [employer] providers and concur with | | | Iman's findings. I edited his note. Alex Sanchez, | | | ,PhD Research Geologist Anesthesiology and Pain Management | | | [facility] | | + + + HCG URINE, [...] + + | JOSE ANTONIO MIN | [address] | [place] [address] | | | OF CARE TESTS | [...]
--- OUTSIDE RECORDS SUMMARY | ~2019-08-12 | XMS | Encounter Summary ---
Demographics + + + | Address | [address] | | | [place] [address] | + + + | Home Phone [...] + +------+ + | Care Special Education Bus Driver Name | Role | Phone [...] | Pain Center at | ,PhD [address] | | | | | [facility] | [address] | | | | | [address] | [place], [place] | | | | | Mailcode: CH15P | [address] | | | | | [facility] | [phone] | | | | | and Martina, | | | | | | [facility] | | | | | | [place], [place] | | | | | | [address] | | | | | | [phone] | | | +--------+ + + + [...]
--- OUTSIDE RECORDS SUMMARY | ~2019-08-12 | XMS | Encounter Summary ---
Demographics + + + | Address | [address] | | | [place] [address] | + + + | Home Phone [...] Providers + +------+ + | Care Revenue Settlements Administrator Name | Role | Phone | + +------+ + | Justo Vazquez MD | PCP | | + +------+ + Encounter Details +--------+ + + + + | Date | Type | Department | Care Team | Description | +--------+ + + + + | 04/23/ | Anesthesia | Pain Center at [facility] | Aleta Rebollar MD [address] | | | 2019 | Event | 15 Floor [address] | [address] | | | | | [address] Mailcode: | [place], [place] | | | | | [address] for | [address] | | | | | Health and Healing, | [phone] | | | | | | | | | | | Floor [place], [place] | | | | | | [address] | | | | | | [phone] | | | +--------+ + + + [...]
--- OUTSIDE RECORDS SUMMARY | ~2019-08-12 | XMS | Encounter Summary ---
Demographics + + + | Address | [address] | | | [place] [address] | + + + | Home Phone [...] Providers + +------+ + | Care Internet Marketing Director Name | Role | Phone [...] | | Pain Center at | ,PhD [address] [facility] | follow-up | | | | [facility] | [address] | | | | | [address] | [place], [place] | | | | | Mailcode: CH15P | [address] | | | | | [facility] | [phone] | | | | | and Martina, | | | | | | Building | | | | | | Floor [place], [place] | | | | | | [address] | | | | | | [phone] | | | +--------+ + + + [...]
--- OUTSIDE RECORDS SUMMARY | ~2019-08-12 | XMS | Encounter Summary ---
Demographics + + + | Address | [address] | | | [place] [address] | + + + | Home Phone [...] Team Providers + +------+ + | Care Numerical Control Nesting Operator Name | Role | Phone | + +------+ + | Justo Vazquez MD | PCP | | + +------+ + Encounter Details +--------+ + + + + | Date | Type | Department | Care Team | Description | +--------+ + + + + | 08/07/ | Telephone | [facility] | Alex Sanchez, | | | 2019 | | Pain Center at | ,PhD [address] | | | | | [facility] | [address] | | | | | [address] | [place], [place] | | | | | Mailcode: CH15P | [address] | | | | | [place] for [facility] | [phone] | | | | | and Healing, | | | | | | | | | | | | Floor [place], [place] | | | | | | [address] | | | | | | [phone] | | | +--------+ + + + [...]
--- OUTSIDE RECORDS SUMMARY | ~2019-08-12 | XMS | Encounter Summary ---
Demographics + + + | Address | [address] | | | [place] [address] | + + + | Home Phone [...] Team Providers + +------+ + | Care Pipelines Supervisor Name | Role | Phone [...] Medical Records | | 2017 | | [place] at [facility] [address] | MD Melissa | Review | | | | [address] | | | | | | Mailcode: [place] | | | | | | Health and | | | | | | [facility] | | | | | | [place], [place] | | | | | | [address] | | | | | | [phone] | | | +--------+ + + + [...]
--- OUTSIDE RECORDS SUMMARY | ~2019-08-12 | XMS | Encounter Summary ---
Demographics + + + | Address | [address] | | | [place] [address] | + + + | Home Phone [...] Providers + +------+ + | Care Hand Packager Name | Role | Phone [...] | | 2017 | | Center at [facility] [address] | [address] | | | | | [address] | [facility], | | | | | Mailcode: Center | [place] [address] | | | | | for Health and | [phone] | | | | | [facility] 2 | | | | | | [place], [place] | | | | | | [address] | | | | | | [phone] | | | +--------+ + + + [...]
--- OUTSIDE RECORDS SUMMARY | ~2019-08-12 | XMS | Encounter Summary ---
Demographics + + + | Address | [address] | | | [place] [address] | + + + | Home Phone [...] Providers + +------+ + | Care Delivery Analyst Name | Role | Phone | [...] 2016 | | Pain Center at | SUPERVISOR BEET END [address] | | | | | [facility] | [place], [place] | | | | | [address] | [address] | | | | | Mailcode: CH15P | [phone] | | | | | [facility] | | | | | | [address], | | | | | | | | | | | | [place], [place] | | | | | | [address] | | | | | | [phone] | | | +--------+ + + + [...]
--- OUTSIDE RECORDS SUMMARY | ~2019-08-12 | XMS | Encounter Summary ---
Demographics + + + | Address | [address] | | | [place] [address] | + + + | Home Phone [...] Providers + +------+ + | Care Environmental Aide Name | Role | Phone | [...] | | | | regional | ,PhD [address] | [address] | | | | | pain | [address] | Giuliana Maldonado | | | | | syndrome | [address] | Mailcode: | | | | | type 1 of | Rd | [address] | | | | | left lower | [place], [place] | [address] | | | | | extremity | [address] | [place], [place] | | | | | Muscle pain | Phone: | [address] | | | | | Procedures | [phone] | Phone: | | | | | NM BONE | Fax: | [phone] | | | | | &/OR JOINT | [phone] | Fax: | | | | | IMAGING | | [phone] | | | | | TOMOGRAPHIC | [...] | | 2018 | Encounter | at [facility] [address] | ,PhD [address] | | | | | [address] | [address] | | | | | Mailcode: [address] | [place], [place] | | | | | [address] | [address] | | | | | [place], [place] | [phone] | | | | | [address] | | | | | | [phone] | | | +--------+ + + + [...]
--- OUTSIDE RECORDS SUMMARY | ~2019-08-12 | XMS | Encounter Summary ---
Demographics + + + | Address | [address] | | | [place] [address] | + + + | Home Phone [...] Team Providers + +------+ + | Care Miller Helper Name | Role | Phone | + +------+ + | Justo Vazquez MD | PCP | | + +------+ + Encounter Details +--------+--------+ + + + | Date | Type | Department | Care Team | Description | +--------+--------+ + + + | 12/26/ | Refill | [facility] | Alex Sanchez, | | | 2019 | | Pain Center at | ,PhD [address] | | | | | [facility] | [address] | | | | | [address] | [place], [place] | | | | | Mailcode: CH15P | [address] | | | | | [place] for [facility] | [phone] | | | | | and Healing, | | | | | | | | | | | | [place], [place] | | | | | | [address] | | | | | | [phone] | | | +--------+--------+ + + + [...]
--- OUTSIDE RECORDS SUMMARY | ~2019-08-12 | XMS | Encounter Summary ---
Demographics + + + | Address | [address] | | | [place] [address] | + + + | Home Phone [...] Team Providers + +------+ + | Care Channeling Machine Operator Name | Role | Phone [...] 2017 | | Pain Center at | TOOL CHASER [address] | | | | | [facility] | Ave [place], [place] | | | | | [address] | [address] | | | | | Mailcode: [facility] | [phone] | | | | | [facility] | | | | | | and Healing, | | | | | | Building | | | | | | Floor [place], [place] | | | | | | [address] | | | | | | [phone] | | | +--------+ + + + [...]
--- OUTSIDE RECORDS SUMMARY | ~2019-08-12 | XMS | Clinical Summary ---
Demographics + + + | Address | [address] | | | [place] [address] | + + + | Home Phone [...] | Author | [facility] | + + + | Organization | [facility] | + + + | Address | Unknown | + + + | Phone | Unavailable | + + + Support + + +---------+ + | Name | Relationship | Address | Phone | + + +---------+ + | Patricia Colin | ECON | Unknown | | + + +---------+ + Care Team Providers + +------+ + | Care Director Medicaid Name | Role | Phone | + +------+ + | Justo Vazquez MD | PCP | | + +------+ + Source Comments KEVIN is fully live on both [facility] Ambulatory and [facility] InPatient.[facility] Allergies + + + + + + [...] + | Overview: Patient has an implanted Tinychat spinal | | cord stimulator. Model#: [id number]. Contact [phone] for | | technical assistance.Contraindications:Sources of strong [...] + + + + | 06/08/ | Remote Control Assembler | Pain Management | Alex Sanchez, | [...] | Right: | BARD | | | [id number] | | Port-10/05/2016Implanted: | | Chest | | | | 0 / | | 10/05/2016 by Obdulio Simpson, | | | | | | /REAU2 | | MD (Quantity not on file) | | | | | | 204 | + +------+--------+ +--------+--------+--------+ + + | Description:Not Power | | Injectable, Progress record | | faxed from [facility] | | [facility] in [place], [place], | | [facility] RN | + + + +---+---+ +---+--------+--------+ | Slimtip DrgImplanted: Qty: 1 | | | ST JESSICA | | 01/06/ | [id number] | | on 12/05/2018 by Daniel, | | | MEDICAL [place] | | 2020 | 0-50A | | Alex Alba MD,PhD at [facility] | | | | | | /[id number] | | INPATIENT REV LOC | | | | | | 371 / | + +---+---+ +---+--------+--------+ + + | Description: | | Level 4 | + + + +---+---+ +---+---+--------+ | Slimtip DrgImplanted: Qty: 1 | | | ST JESSICA | | | [id number] | | on 12/05/2018 by Daniel, | | | MEDICAL [place] | | | 0-50A | | Alex Alba MD,PhD at [facility] | | | | | | /[id number] | | INPATIENT REV LOC | | [...] / | | Alex Alba MD,PhD at [facility] | | | | [...] | MEDICA | xxxxxxxxxxx | 07/15/20 | [phone] | [address] | Medica | | | RE A & | | 15-Pre | 1 | 9842 | re | | | B | | sent | | [place] | | | | | | | | [id number] | | + +--------+ +--------+ + +--------+ | TUBING ASSEMBLER MEDICAID | TUBING ASSEMBLER | xxxxxxxx | 11/14/19 | | | [...] | 1989 | [phone] | [place] [address] | | | evita | | | [...]
--- OUTSIDE RECORDS SUMMARY | ~2019-08-12 | XMS | Encounter Summary ---
Demographics + + + | Address | [address] | | | [place] [address] [...] Team Providers + +------+ + | Care Dobby Looms Pegger Name | Role | Phone | + +------+ + | Justo Vazquez MD | PCP | | + +------+ + Encounter Details +--------+ + + + + | Date | Type | Department | Care Team | Description | +--------+ + + + + | 04/03/ | Telephone | [facility] | Alex Sanchez, | | | 2019 | | Pain Center at | ,PhD [address] | | | | | [facility] | [address] | | | | | [address] | [place], [place] | | | | | Mailcode: CH15P | [address] | | | | | [place] for [facility] | [phone] | | | | | and Healing, | | | | | | | | | | | | Floor [place], [place] | | | | | | [address] | | | | | | [phone] | | | +--------+ + + + [...]
--- OUTSIDE RECORDS SUMMARY | ~2019-08-12 | XMS | Encounter Summary ---
Demographics + + + | Address | [address] | | | [place] [address] [...] Providers + +------+ + | Care Cash Applications Specialist Name | Role | Phone | + +------+ + | Justo Vazquez MD | PCP | | + +------+ + Encounter Details +--------+ + + + + | Date | Type | Department | Care Team | Description | +--------+ + + + + | 08/30/ | Documentati | Pain Center at [facility] | Jamel Madden, | | | 2018 | on | 15 Floor [address] | PhD [address] | | | | | [address] Mailcode: | [place], [place] | | | | | [address] for | [address] | | | | | Health and Healing, | [phone] | | | | | | | | | | | [place], [place] | | | | | | [address] | | | | | | [phone] | | | +--------+ + + + [...]
--- OUTSIDE RECORDS SUMMARY | ~2019-08-12 | XMS | Encounter Summary ---
Demographics + + + | Address | [address] | | | [place] [address] [...] Providers + +------+ + | Care Barrel Assembly Inspector Name | Role | Phone | + +------+ + | Justo Vazquez MD | PCP | | + +------+ + Encounter Details +--------+ + + + + | Date | Type | Department | Care Team | Description | +--------+ + + + + | 08/07/ | Telephone | [facility] | Alex Sanchez, | | | 2019 | | Pain Center at | ,PhD [address] | | | | | [facility] | [address] | | | | | [address] | [place], [place] | | | | | Mailcode: CH15P | [address] | | | | | [place] for [facility] | [phone] | | | | | and Healing, | | | | | | | | | | | | Floor [place], [place] | | | | | | [address] | | | | | | [phone] | | | +--------+ + + + [...]
--- OUTSIDE RECORDS SUMMARY | ~2019-08-12 | XMS | Encounter Summary ---
Demographics + + + | Address | [address] | | | [place] [address] | + + + | Home Phone [...] Team Providers + +------+ + | Care Pathological Technician Name | Role | Phone | [...] | | | 2019 | Event | [place] for [facility] | [address] | | | | | and Healing Surgery | [address] | | | | | [facility] | [place], [place] | | | | | Desk Located on the | [address] | | | | | 4th floor [address] | [phone] | | | | | [address] [place], | | | | | | [place] [address] | | | +--------+ + + + [...]
--- OUTSIDE RECORDS SUMMARY | ~2019-08-12 | XMS | Encounter Summary ---
Demographics + + + | Address | [address] | | | [place] [address] | + + + | Home Phone [...] + +------+ + | Care Human Resources Operations Director Name | Role | Phone | [...] | pain, | [address] | [address] | | | | | unspecified | [address] | [address] | | | | | abdominal | Rd | [facility] [place] | | | | | location | [place], [place] | [address] | | | | | Pain of | [address] | Phone: | | | | | upper | Phone: | [phone] | | | | | abdomen | [phone] | Fax: | | | | | Complex | Fax: | [phone] | | | | | regional | [phone] | | | | | | pain [...] | | | | | | | PEDIATRICS PHYSICIAN | | | +--------+---------+ + + + [...] 2017 | | Pain Center at | CONTACT CENTER ENGINEER [address] | | | | | [facility] | Ave [facility] [place] | | | | | [address] | [address] | | | | | Mailcode: CH15P | [phone] | | | | | [facility] | | | | | | and Healing, | | | | | | Building | | | | | | Floor [place], [place] | | | | | | [address] | | | | | | [phone] | | | +--------+ + + + [...]
--- OUTSIDE RECORDS SUMMARY | ~2019-08-12 | XMS | Encounter Summary ---
Demographics + + + | Address | [address] | | | [place] [address] | + + + | Home Phone [...] Providers + +------+ + | Care Cash Management Officer Name | Role | Phone | [...] | | 2017 | | Center at [facility] [address] | [address] | | | | | [address] | [facility], | | | | | Mailcode: Center | [place] [address] | | | | | for Health and | [phone] | | | | | [facility] [address] | | | | | | [place], [place] | | | | | | [address] | | | | | | [phone] | | | +--------+ + + + [...]
--- OUTSIDE RECORDS SUMMARY | ~2019-08-12 | XMS | Encounter Summary ---
Demographics + + + | Address | [address] | | | [place] [address] | + + + | Home Phone [...] Team Providers + +------+ + | Care Casino Host Name | Role | Phone | [...] | Request (ketamine) | | | | [facility] | [address] | | | | | [address] | [place], [place] | | | | | Mailcode: CH15P | [address] | | | | | [facility] | [phone] | | | | | and Healing, | | | | | | Building | | | | | | [place], [place] | | | | | | [address] | | | | | | [phone] | | | +--------+ + + + [...]
--- OUTSIDE RECORDS SUMMARY | ~2019-08-12 | XMS | Encounter Summary ---
Demographics + + + | Address | [address] | | | [place] [address] | + + + | Home Phone [...] Providers + +------+ + | Care Legal Document Assistant Name | Role | Phone | [...] | Diagnoses | Beulah | Edu Pt Coffee Maker | | | | Therapy | CRPS | Janak Martinez MD | [address] | | | | | (complex | [address] | | | | | regional | [address] | Mailcode: | | | | | pain | Mailstop | [facility] Center | | | | | syndrome), | [id number] | for Health | | | | | lower limb | [place], [place] | and Healing, | | | | | Gait | [address] | Building [address] | | | | | disturbance | Phone: | [place], [place] | | | | | Muscle pain | [phone] | [address] | | | | | Procedures | Fax: | Phone: | | | | | PHYSICAL | [phone] | [phone] | | | | | THERAPY | [...] | | | [place] | Ave [place], [place] | syndrome), lower | | | | [address] | [phone] | limb (Primary Dx) | | | | Mailcode: CH3P | | | | | | [facility] | | | | | | and Healing, | | | | | | Building [address] | | | | | | Floor [place], [place] | | | | | | [address] | | | | | | [phone] | | | +--------+---------+ + + + [...] might be different f rom the original. [id number] BRODY FARAH Date of : 1990 Start of care: 02/14/2012 Date of onset: 02/14/2012 Referring/Attending Practitioner: Janak Riojas MD . Primary/Referral Diagnosis/ICD-9: 355.71B CRPS (complex regional pain syndrome), lower limb Insurance: Payor: [facility] Plan: BCBS OUT OF STATE Product Type: PP O Service period from: 02/14/2012 to: 08/12/2012 Number visits used/authorized: 11/25 [facility] PHYSICAL THERAPY INITIAL EVALUATION SUBJECTIVE: Age: 21 [...] two sympathetic nerve blocks. She saw Dr Rijoas today already. Pain rating at present: 7/10 [...] no pain relief. Admitted to the inpatient [facility] program for 1 month in the [...] recommend that the patient have a signed [facility] Material Risk Notice, agree to [...] and hemr oidectomy. Social History: lives in [place], 22 years old, not working currently, [...] or concerns about therapy: she lives in [place]. She is r equesting family members [...] provided with a token and bocanegra for [facility] site. Treatment began: 1345hrs Treatment ended: 1430hrs Manual therapy: 0min Therapeutic exercise: 15 min ASSESSMENT: pt presents with 10-year history of ankle pain post trauma and multiple surgeri es. She thinks she developed CRPS in 2004. She was diagnosed with CRPS and spent a month in the program at [facility] working through aggressive desensitization and activation which prov ided no lasting benefit. She lives in [place], is going to school, and ambulates [...] She can work with her PT in [place]. CLINICAL PRIORITIES: 1-follow up with Dr Riojas [...] [facility] Mailcode: Ch3p [address] [facility], [address] [place] [address] documented in this encounter Plan of Treatment Not on filedocumented as of this encounter Procedures + +--------+ + + + | Procedure Name | Priori | Date/Time | Associated Diagnosis | Comments | | | ty | | | | + +--------+ + + + | MD THERAPEUTIC | Routin | 02/16/2012 | CRPS (complex | | | EXERCISES | e | 3:34 PM | regional pain | | | | | PDT | syndrome), lower | | | | | | limb | | + +--------+ + + + | MD PHYS THERAPY | Routin | 02/16/2012 | [...]
--- OUTSIDE RECORDS SUMMARY | ~2019-08-12 | XMS | Encounter Summary ---
Demographics + + + | Address | [address] | | | [place] [address] | + + + | Home Phone [...] Team Providers + +------+ + | Care Biomedical Engineering Supervisor Name | Role | Phone | + +------+ + | Justo Vazquez MD | PCP | | + +------+ + Encounter Details +--------+ + + + + | Date | Type | Department | Care Team | Description | +--------+ + + + + | 12/12/ | Telephone | [facility] | Alex Sanchez, | | | 2019 | | Pain Center at | ,PhD [address] | | | | | [facility] | [facility] [address] | | | | | [address] | [place], [place] | | | | | Mailcode: CH15P | [address] | | | | | [place] for [facility] | [phone] | | | | | and Healing, | | | | | | | | | | | | Floor [place], [place] | | | | | | [address] | | | | | | [phone] | | | +--------+ + + + [...]
--- OUTSIDE RECORDS SUMMARY | ~2019-08-12 | XMS | Encounter Summary ---
Demographics + + + | Address | [address] | | | [place] [address] | + + + | Home Phone [...] Providers + +------+ + | Care Financial Services Agent Name | Role | Phone | [...]
--- OUTSIDE RECORDS SUMMARY | ~2019-08-12 | XMS | Encounter Summary ---
Demographics + + + | Address | [address] | | | [place] [address] | + + + | Home Phone [...] Providers + +------+ + | Care Lining Feller Blindstitch Name | Role | Phone | + [...] | | Pain Center at | [address] [facility] | | | | | [facility] | [address] [address] | | | | | [address] | [place], [place] | | | | | Mailcode: [facility] | [address] | | | | | [facility] | [phone] | | | | | and Healing, | | | | | | [facility] | | | | | | [place], [place] | | | | | | [address] | | | | | | [phone] | | | +--------+ + + + [...]
--- OUTSIDE RECORDS SUMMARY | ~2019-08-12 | XMS | Encounter Summary ---
Demographics + + + | Address | [address] | | | [place] [address] | + + + | Home Phone [...] Providers + +------+ + | Care Stock Turner Name | Role | Phone | [...] | | | 2019 | Event | [place] for [facility] | [address] | | | | | and Healing Surgery | [address] | | | | | [facility] | [place], [place] | | | | | Desk Located on the | [address] | | | | | 4th floor [address] | [phone] | | | | | [address] [place], | | | | | | [place] [address] | | | +--------+ + + + [...]
--- OUTSIDE RECORDS SUMMARY | ~2019-08-12 | XMS | Encounter Summary ---
Demographics + + + | Address | [address] | | | [place] [address] | + + + | Home Phone [...] Team Providers + +------+ + | Care Turbine Engine Assembler Name | Role | Phone | + +------+ + | Justo Vazquez MD | PCP | | + +------+ + Encounter Details +--------+ + + + + | Date | Type | Department | Care Team | Description | +--------+ + + + + | 09/20/ | Telephone | [facility] | Ilene Bright, | | | 2017 | | Pain Center at | PLEXIGLAS FORMER [address] | | | | | [facility] | Ave [place], [place] | | | | | [address] | [address] | | | | | Mailcode: CH15P | [phone] | | | | | [facility] | | | | | | and Healing, | | | | | | | | | | | | [place], [place] | | | | | | [address] | | | | | | [phone] | | | +--------+ + + + [...]
--- OUTSIDE RECORDS SUMMARY | ~2019-08-12 | XMS | Encounter Summary ---
Demographics + + + | Address | [address] | | | [place] [address] | + + + | Home Phone [...] Team Providers + +------+ + | Care Popcorn Machine Operator Name | Role | Phone [...] 2019 | | Pain Center at | DIRECTOR EXTERNAL COMMUNICATIONS [address] | | | | | [facility] | Ave [place], [place] | | | | | [address] | [address] | | | | | Mailcode: CH15P | [phone] | | | | | [facility] | | | | | | and Healing, | | | | | | | | | | | | [place], [place] | | | | | | [address] | | | | | | [phone] | | | +--------+ + + + [...]
--- OUTSIDE RECORDS SUMMARY | ~2019-08-12 | XMS | Encounter Summary ---
Demographics + + + | Address | [address] | | | [place] [address] | + + + | Home Phone [...] Team Providers + +------+ + | Care Maori Liaison Adviser Name | Role | Phone | [...] [address] | | | | | [facility] | [address] | | | | | [address] | [place], [place] | | | | | Mailcode: CH15P | [address] | | | | | [place] for [facility] | [phone] | | | | | and Healing, | | | | | | | | | | | | Floor [place], [place] | | | | | | [address] | | | | | | [phone] | | | +--------+ + + + [...]
--- OUTSIDE RECORDS SUMMARY | ~2019-08-12 | XMS | Encounter Summary ---
Demographics + + + | Address | [address] | | | [place] [address] | + + + | Home Phone [...] Providers + +------+ + | Care Master Dyer Name | Role | Phone | [...] Complex | Alex Alba, | [facility] [address] | | | | | regional | ,PhD [address] | [address] | | | | | pain | [address] | [address] | | | | | syndrome | [address] | Mailcode: | | | | | type 1 of | Rd | [address] | | | | | left lower | [place], [place] | [address] | | | | | extremity | [address] | [place], [place] | | | | | Muscle pain | Phone: | [address] | | | | | Procedures | [phone] | Phone: | | | | | NM BONE | Fax: | [phone] | | | | | &/OR JOINT | [phone] | Fax: | | | | | IMAGING | | [phone] | | | | | TOMOGRAPHIC | [...] + + | 12/27/ | Ancillary | [facility] Comprehensive | Alex Sanchez, | | | 2018 | Orders | Pain Center at | ,PhD [address] [facility] [facility] | | | | | [facility] | [address] | | | | | [address] | [place], [place] | | | | | Mailcode: CH15P | [address] | | | | | [facility] | [phone] | | | | | and Martina, | | | | | | Building | | | | | | [place], [place] | | | | | | [address] | | | | | | [phone] | | | +--------+ + + + [...]
--- OUTSIDE RECORDS SUMMARY | ~2019-08-12 | XMS | Encounter Summary ---
Demographics + + + | Address | [address] | | | [place] [address] | + + + | Home Phone [...] Team Providers + +------+ + | Care Cell Assembly Pinner Name | Role | Phone | + [...] Rd | | | | | | [place], [place] | | | | | | [address] | | | +--------+ + + + [...]
--- OUTSIDE RECORDS SUMMARY | ~2019-08-12 | XMS | Encounter Summary ---
Demographics + + + | Address | [address] | | | [place] [address] | + + + | Home Phone [...] Providers + +------+ + | Care Air Hole Driller Name | Role | Phone | [...] + + | 12/05/ | Surgery | [facility] | Alex Sanchez, | BILATERAL DORSAL | | 2019 | | [facility] | ,PhD [address] [facility] | ROOT GANGLION SPINAL | | | | and Healing Surgery | [address] | CORD STIMULATOR | | | | Center Admitting | [place], [place] | IMPLANT LUMBAR; | | | | Desk Located on the | [address] | POSTERIOR | | | | 4th floor [address] | [phone] | | | | | [address] [place], | | | | | | [place] [address] | | | +--------+---------+ + + + [...] s/p successful DRG trial lead system with [employer] on 09/25/2018. No changes in H&P, [...] NOTE Date: December 05, 2018 Location: [facility] [place] | | | Tracie Farah [id number] :1990, presents to clinic | | | for: Dorsal root ganglion stimulator implant PROCEDURE: Dorsal | | | root ganglion stimulator implant PRE-OPERATIVE DIAGNOSIS: Complex | | | regional Pain syndrome type 1 of left lower extremity | | | POST-OPERATIVE DIAGNOSIS: Complex regional Pain syndrome type 1 of | | | left lower extremity ATTENDING PHYSICIAN: Alex Sanchez | | | CAN SEALER: Arben Valerio MD ANESTHESIA: sedation by IVIS Cole | | | Carmen, supervised by manufacturing technology analyst Ilir Valdes. | | | FINDINGS: Appropriate [...] was | | | escorted to the [facility] [place], where she was positioned [...] to the | | | [facility] route service representative. A test stimulation was performed [...] recovery. Images were saved, and sent to [employer]. | | | Alex Sanchez (attending) was present for the entire procedure. | | | Arben Valerio MD I was present for the entire procedure | | | (spinal cord stimulator implantation with DRG leads at left L4 and | | | L5) and all bocanegra elements of this visit. I reviewed the | | | documentation of the other CARDIAC REHABILITATION SPECIALIST providers and concur with | | | Iman's findings. I edited his note. Alex Sanchez, | | | ,PhD Production Illustrator Anesthesiology and Pain Management | | | [facility] | | + + + [...] + + | JOSE ANTONIO MIN | [address] | [place] [address] | | | OF CARE TESTS | [...]
--- OUTSIDE RECORDS SUMMARY | ~2019-08-12 | XMS | Encounter Summary ---
Demographics + + + | Address | [address] | | | [place] [address] | + + + | Home Phone [...] Providers + +------+ + | Care Construction Job Cost Estimator Name | Role | Phone | + +------+ + | Justo Vazquez MD | PCP | | + +------+ + Encounter Details +--------+ + + + + | Date | Type | Department | Care Team | Description | +--------+ + + + + | 01/06/ | Document-Ga | [facility] | Alex Sanchez, | | | 2018 | anned | Pain Center at | ,PhD [address] | | | | | [facility] | [address] | | | | | [address] | [place], [place] | | | | | Mailcode: CH15P | [address] | | | | | [facility] | [phone] | | | | | and Healing, | | | | | | | | | | | | Floor [place], [place] | | | | | | [address] | | | | | | [phone] | | | +--------+ + + + [...]
--- OUTSIDE RECORDS SUMMARY | ~2019-08-12 | XMS | Encounter Summary ---
Demographics + + + | Address | [address] | | | [place] [address] | + + + | Home Phone [...] Team Providers + +------+ + | Care Row Boss Name | Role | Phone | [...] | | | | | constipation | [place], [place] | for Health | | | | | type | [address] | and Healing, | | | | | Abdominal | | Building 2 | | | | | pain, | | [place], [place] | | | | | unspecified | | [address] | | | | | location | | Phone: | | | | | Procedures | | [phone] | | | | | CONSULT TO | | Fax: | | | | | GI PROCEDURE | | [phone] | | | | | UNIT: | [...] | | | | | | Mailcode: [place] | | | | | | for Health and | | | | | | Healing, Building 2 | | | | | | [place], [place] | | | | | | [address] | | | | | | [phone] | | | +--------+ + + + [...]
--- OUTSIDE RECORDS SUMMARY | ~2019-08-12 | XMS | Encounter Summary ---
Demographics + + + | Address | [address] | | | [place] [address] | + + + | Home Phone [...] Providers + +------+ + | Care Director Card Name | Role | Phone | + [...] + + | 09/14/ | Telephone | [facility] | Alex Sanchez, | Education procedure | | 2018 | | Pain Center at | ,PhD [address] | (preprocedure | | | | [facility] | [address] | education SCS) | | | | [address] | [place], [place] | | | | | Mailcode: CH15P | [address] | | | | | [facility] | [phone] | | | | | and [address]ina, | | | | | | | | | | | | Floor [place], [place] | | | | | | [address] | | | | | | [phone] | | | +--------+ + + + [...]
--- OUTSIDE RECORDS SUMMARY | ~2019-08-12 | XMS | Encounter Summary ---
Demographics + + + | Address | [address] | | | [place] [address] | + + + | Home Phone [...] Team Providers + +------+ + | Care Accountant Tax Name | Role | Phone | + [...] | | | | | syndrome | [facility] | [facility] | | | | | type 1 of | Rd | Rd [place], | | | | | left lower | [place], [place] | [place] | | | | | extremity | [address] | [address] | | | | | Procedures | Phone: | Phone: | | | | | REQUEST TO | [phone] | [phone] | | | | | SURGERY | Fax: | Fax: | | | | | FRIT MIXER | [phone] | [phone] | +--------+---------+ + + + + Physical [...] | | | | pain | [address] | [address] | | | | | syndrome | [facility] | [place] | | | | | type 1 of | Rd | [place] | | | | | left lower | [place], [place] | [address] | | | | | extremity | [address] | Phone: | | | | | Procedures | Phone: | [phone] | | | | | PHYSICAL | [phone] | Fax: | | | | | THERAPY | Fax: | [phone] | | | | | REFERRAL | [phone] | | +--------+--------+ + + + + [...] | | | | | Procedures | [place], [place] | Rd [place], | | | | | CONSULT TO | [address] | [place] | | | | | PAIN | Phone: | [phone] | | | | | MANAGEMENT | [phone] | Phone: | | | | | | Fax: | [phone] | | | | | | [phone] | Fax: | | | | | | | [phone] | +--------+--------+ + + + + Encounter Details +--------+---------+ + + + | Date | Type | Department | Care Team | Description | +--------+---------+ + + + | 06/12/ | Office | [facility] | Alex Sanchez, | Complex regional | | 2018 | Visit | Pain Center at | ,PhD [address] | pain syndrome type 1 | | | | [facility] | [facility] [address] | of left lower | | | | [address] | [place], [place] | extremity (Primary | | | | Mailcode: CH15P | [address] | Dx) | | | | Center for Health | [phone] | | | | | and Healing, | | | | | | | | | | | | Floor [place], [place] | | | | | | [address] | | | | | | [phone] | | | +--------+---------+ + + + [...] in the future, please contact me via [employer] to request an order to schedule. The procedure you discussed with your doctor is called: SCS DRG TRIAL LUMBAR [facility]. Please make sure this is scheduled with the Clearing Inspector. PRE-PROCEDURE INSTRUCTIONS 1. Please bring a hazardous materials driver with you as we may give you medications that impair your ability to drive. This is necessary even if you do not receive sedation. You may take a taxi or ri [employer] if you are accompanied by a responsible [...] phone number for questions or concerns is [phone]. documented in this encounter Progress Notes Holly [...] that this mildly agitated her neck pain. ACTIVITY THERAPY TEACHER Brief Pain Inventory: (ten= worst possible pain [...] Hemroidectomy Trial spinal cord stimulator leads 08/02/2012 [facility], Surgeon: Janak Riojas MD Cholecystectomy [...] History Social History Narrative Single. Goes to [employer] with a light load. Has been working at [employer], can' t work on [employer]. Has roommates. Allergies Allergen Reactions Morphine Anaphylaxis [...] by physician. Concentration is 150mg/mL. Compounded by [facility] ) KETOROLAC IM Inject into the [...] and summary of old medical records (source: [employer]), as summarized in the body of the [...] to send me a mess age via [employer] to request referrals to acupuncture and massage [...] by Sonia Key. Alex Sanchez MD PhD [place] [facility] documented in t his encounter Plan of [...]
--- OUTSIDE RECORDS SUMMARY | ~2019-08-12 | XMS | Encounter Summary ---
Demographics + + + | Address | [address] | | | [place] [address] | + + + | Home Phone [...] Providers + +------+ + | Care Accountant Name | Role | Phone | + +------+ + | Justo Vazquez MD | PCP | | + +------+ + Encounter Details +--------+ + + + + | Date | Type | Department | Care Team | Description | +--------+ + + + + | 01/09/ | Documentati | Orthopaedics at | Ranjeet Amanda, | | | 2018 | on | [facility] [address] | [address] | | | | | Ave Mailcode: CH12A | [facility] [place] | | | | | [place] for [facility] | [address] | | | | | and Healing, | [phone] | | | | | | | | | | | Floor [facility] [place] | | | | | | [address] | | | | | | [phone] | | | +--------+ + + + [...]
--- OUTSIDE RECORDS SUMMARY | ~2019-08-12 | XMS | Encounter Summary ---
Demographics + + + | Address | [address] | | | [place] [address] | + + + | Home Phone [...] Providers + +------+ + | Care Curriculum Advisory Teacher Name | Role | Phone | [...] [facility] [address] | [place]O Mahoney [address] | | | | | [address] | [address] | | | | | [facility] | [place], [place] | | | | | [place], [place] | [address] | | | | | [address] | | | | | | [phone] | | | +--------+ + + + [...]
--- OUTSIDE RECORDS SUMMARY | ~2019-08-12 | XMS | Encounter Summary ---
[...] Providers + +------+ + | Care Educational Assistant Name | Role | Phone | [...] Rd | | | | | | [place], [place] | | | | | | [address] | | | +--------+ + + + [...]
--- OUTSIDE RECORDS SUMMARY | ~2019-08-12 | XMS | Encounter Summary ---
Demographics + + + | Address | [address] | | | [place] [address] | + + + | Home Phone [...] Providers + +------+ + | Care Hand Baseball Sewer Name | Role | Phone | + +------+ + | Justo Vazquez MD | PCP | | + +------+ + Encounter Details +--------+ + + + + | Date | Type | Department | Care Team | Description | +--------+ + + + + | 05/12/ | MyChart | Pain Center at [facility] | Ewa Melchor, | RE: Schedule change | | 2017 | Encounter | 15th Floor [address] | EMBROIDERY MACHINE OPERATOR [address] | | | | | [address] Mailcode: | [address] | | | | | [facility] Center for | [place] [address] | | | | | Health and Healing, | [phone] | | | | | | | | | | | Floor [place], [place] | | | | | | [address] | | | | | | [phone] | | | +--------+ + + + [...]
--- OUTSIDE RECORDS SUMMARY | ~2019-08-12 | XMS | Encounter Summary ---
Demographics + + + | Address | [address] | | | [place] [address] | + + + | Home Phone [...] Providers + +------+ + | Care Water Filtration Technician Name | Role | Phone | + +------+ + | Allegra Gandhi | PCP | | + +------+ + Encounter Details +--------+ + + + + | Date | Type | Department | Care Team | Description | +--------+ + + + + | 02/13/ | Hospital | Nuclear Medicine | | | | 2011 | Encounter | at [facility] [address] | | | | | | [address] | | | | | | Mailcode: [address] | | | | | | [address] | | | | | | [place], [place] | | | | | | [address] | | | | | | [phone] | | | +--------+ + + + [...]
--- OUTSIDE RECORDS SUMMARY | ~2019-08-12 | XMS | Encounter Summary ---
Demographics + + + | Address | [address] | | | [place] [address] | + + + | Home Phone [...] Team Providers + +------+ + | Care Optometrist/Practice Owner Name | Role | Phone | [...] | | | | | [address] [place], | | | | | | [place] [address] | | | +--------+ + + + [...]
--- OUTSIDE RECORDS SUMMARY | ~2019-08-12 | XMS | Encounter Summary ---
Demographics + + + | Address | [address] | | | [place] [address] | + + + | Home Phone [...] + +------+ + | Care Digital Content Specialist Name | Role | Phone | + +------+ + | Justo Vazquez MD | PCP | | + +------+ + Encounter Details +--------+ + + + + | Date | Type | Department | Care Team | Description | +--------+ + + + + | 03/16/ | Telephone | Digestive Health | Crys Gomez, | | | 2017 | | [place] at [facility] [address] | [address] | | | | | [address] | [address] | | | | | Mailcode: Center | [place], [place] | | | | | and | [address] | | | | | [facility], [facility] 2 | [phone] | | | | | [place], [place] | | | | | | [address] | | | | | | [phone] | | | +--------+ + + + [...]
--- OUTSIDE RECORDS SUMMARY | ~2019-08-12 | XMS | Encounter Summary ---
Demographics + + + | Address | [address] | | | [place] [address] | + + + | Home Phone [...] Beltre, | | | 2014 | | Recluse at [facility] [address] | [address] | | | | | [address] | [place] [address] | | | | | Mailcode: Center | [phone] | | | | | for Health and | | | | | | [address] | | | | | | [place], [place] | | | | | | [address] | | | | | | [phone] | | | +--------+ + + + [...]
--- OUTSIDE RECORDS SUMMARY | ~2019-08-12 | XMS | Encounter Summary ---
Demographics + + + | Address | [address] | | | [place] [address] | + + + | Home Phone [...] Providers + +------+ + | Care Motor Coach Tour Operator Name | Role | Phone | [...] with nausea | [address] | Rd [place], | | | | | Complex | Rd | [place] | | | | | regional | [place], [place] | [address] | | | | | pain | [address] | Phone: | | | | | syndrome | Phone: | [phone] | | | | | type 1 of | [phone] | Fax: | | | | | left lower | Fax: | [phone] | | | | | extremity | [phone] | | | | | | Procedures [...] | | | | | Procedures | [place], [place] | Rd [place], | | | | | CONSULT TO | [address] | [place] | | | | | PAIN | Phone: | [address] | | | | | MANAGEMENT | [phone] | Phone: | | | | | | Fax: | [phone] | | | | | | [phone] | Fax: | | | | | | | [phone] | +--------+--------+ + + + + Encounter Details +--------+---------+ + + + | Date | Type | Department | Care Team | Description | +--------+---------+ + + + | 04/19/ | Office | [facility] Comprehensive | Alex Sanchez, | Intractable cyclical | | 2018 | Visit | Pain Center at | ,PhD [address] | vomiting with | | | | [facility] | [address] | nausea (Primary Dx); | | | | [address] | [place], [place] | Complex regional | | | | Mailcode: CH15 | [address] | pain syndrome type 1 | | | | [place] for [facility] | [phone] | of left lower | | | | and Healing, | | extremity | | | | Building | | | | | | Floor [facility] [place] | | | | | | [address] | | | | | | [phone] | | | +--------+---------+ + + + [...] be differe nt from the original. [facility] Return Visit Date: 04/20/2018 Chief Complaint Patient presents with Abdominal pain Back pain Pain in left leg History of Present Illness: Tracie Farah is a 27 year old female, whose last appoi ntment at the [facility] [place] was 12/27/2017, for a procedure (popliteal nerve [...] not help for the abdominal pain). 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 Goes to [employer] with a light load. Has been working at [employer], can' t work on [employer]. Has roommates. Allergies Allergen Reactions Morphine Anaphylaxis [...] by physician. Concentration is 150mg/mL. Compounded by [employer] ) KETOROLAC IM Inject into the muscle [...] to her by Christie Madrid MD in [place], [place]. As she chowdhury s since left the practice, Ms. Farah no longer has a prescriber for this medication. At [facility], we typically do [...] unclear etiology. She presents to the ER hospital for special surgery, and is greatly helped by Toradol, antiemetics [...] Follow up as needed Alex Sanchez MD,PhD [facility] 3 :41 PM Дмитрий, [...]
--- OUTSIDE RECORDS SUMMARY | ~2019-08-12 | XMS | Encounter Summary ---
Demographics + + + | Address | [address] | | | [place] [address] | + + + | Home Phone [...] Team Providers + +------+ + | Care Street Department Dispatcher Name | Role | Phone | [...] | | 2016 | | Center at [facility] [address] | MD Melissa | | | | | [address] | | | | | | Mailcode: Center | | | | | | for Health and | | | | | | Healing, [facility] 2 | | | | | | [place], [place] | | | | | | [address] | | | | | | [phone] | | | +--------+ + + + [...]
--- OUTSIDE RECORDS SUMMARY | ~2019-08-12 | XMS | Encounter Summary ---
Demographics + + + | Address | [address] | | | [place] [address] [...] Team Providers + +------+ + | Care Smoking Pipe Driller And Threader Name | Role | Phone | + [...] on | Center at [facility] [address] | [address] | | | | | [address] | [place], [place] | | | | | Mailcode: Center | [address] | | | | | for Health and | [phone] | | | | | [facility] | | | | | | [place], [place] | | | | | | [address] | | | | | | [phone] | | | +--------+ + + + [...]
--- OUTSIDE RECORDS SUMMARY | ~2019-08-12 | XMS | Encounter Summary ---
Demographics + + + | Address | [address] | | | [place] [address] | + + + | Home Phone [...] Providers + +------+ + | Care Staff Nuclear Medicine Technologist Name | Role | Phone | [...] Medical Records | | 2017 | | [place] [address] [address] | [address] | Review | | | | [address] | [address] [place], | | | | | Mailcode: [place] | [place] [address] | | | | | for Health and | [phone] | | | | | [facility] 2 | | | | | | [place] [employer], [place] | | | | | | [address] | | | | | | [phone] | | | +--------+ + + + [...]
--- OUTSIDE RECORDS SUMMARY | ~2019-08-12 | XMS | Encounter Summary ---
Demographics + + + | Address | [address] | | | [place] [address] | + + + | Home Phone [...] Team Providers + +------+ + | Care Observer Electrical Prospecting Name | Role | Phone | + [...] + | 10/30/ | Refill | [facility] Comprehensive | Alex Sanchez, | Refill Request | | 2018 | | Pain Center at | ,PhD [address] | | | | | [facility][Note 3] | [address] | | | | | [address] | [place], [place] | | | | | Mailcode: CH15 | [address] | | | | | [facility] | [phone] | | | | | and [address], | | | | | | Building | | | | | | Floor [place], [place] | | | | | | [address] | | | | | | [phone] | | | +--------+--------+ + + + [...]
--- OUTSIDE RECORDS SUMMARY | ~2019-08-12 | XMS | Encounter Summary ---
Demographics + + + | Address | [address] | | | [place] [address] | + + + | Home Phone [...] Providers + +------+ + | Care Wire Tinner Name | Role | Phone | + +------+ + | Justo Vazquez MD | PCP | | + +------+ + Encounter Details +--------+ + + + + | Date | Type | Department | Care Team | Description | +--------+ + + + + | 01/09/ | Documentati | Orthopaedics at | Ranjeet Amanda, | | | 2018 | on | [facility] [address] | [address] | | | | | Ave Mailcode: CH12A | [facility] [place] | | | | | [place] for [facility] | [address] | | | | | and Healing, | [phone] | | | | | | | | | | | Floor [facility] [place] | | | | | | [address] | | | | | | [phone] | | | +--------+ + + + [...]
--- OUTSIDE RECORDS SUMMARY | ~2019-08-12 | XMS | Encounter Summary ---
Demographics + + + | Address | [address] | | | [place] [address] | + + + | Home Phone [...] Team Providers + +------+ + | Care Entertainment Usher Name | Role | Phone | [...] | | | | regional | ,PhD [address] | | | | | | pain | [address] | | | | | | syndrome | [address] | | | | | | type 1 of | Rd | | | | | | left lower | [place], [place] | | | | | | extremity | [address] | | | | | | Procedures | Phone: | | | | | | PHYSICAL | [phone] | | | | | | THERAPY | Fax: | | | | | | REFERRAL | [phone] | | +--------+--------+ + + + + Encounter Details +--------+ + + + + | Date | Type | Department | Care Team | Description | +--------+ + + + + | 01/22/ | Telephone | [facility] [place] | Alex Sanchez, | | | 2018 | | Pain Center at | ,PhD [address] | | | | | [facility] | [facility] | | | | | [address] | [place], [place] | | | | | Mailcode: CH15P | [address] | | | | | [facility] | [phone] | | | | | and Healing, | | | | | | | | | | | | [place], [place] | | | | | | [address] | | | | | | [phone] | | | +--------+ + + + [...]
--- OUTSIDE RECORDS SUMMARY | ~2019-08-12 | XMS | Encounter Summary ---
Demographics + + + | Address | [address] | | | [place] [address] | + + + | Home Phone [...] Team Providers + +------+ + | Care Thermal Molder Name | Role | Phone | [...] | | 2017 | | Center at [facility] [address] | [address] | severe stomach Pain) | | | | [address] | [facility], | | | | | Mailcode: [place] | [place] [address] | | | | | for Health and | [phone] | | | | | [facility], [facility] | | | | | | [place], [place] | | | | | | [address] | | | | | | [phone] | | | +--------+ + + + [...]
--- OUTSIDE RECORDS SUMMARY | ~2019-08-12 | XMS | Encounter Summary ---
Demographics + + + | Address | [address] | | | [place] [address] | + + + | Home Phone [...] Providers + +------+ + | Care Public Health Name | Role | Phone | [...] | pain, | [address] | [address] | | | | | unspecified | [address] | [address] | | | | | abdominal | Rd | [facility] [place] | | | | | location | [place], [place] | [address] | | | | | Pain of | [address] | Phone: | | | | | upper | Phone: | [phone] | | | | | abdomen | [phone] | Fax: | | | | | Complex | Fax: | [phone] | | | | | regional | [phone] | | | | | | pain [...] | | | | | | | CURLING MACHINE OPERATOR | | | +--------+---------+ + [...] Pain Center at | LANGUAGE TUTOR [address] | | | | | [facility][Note 2[facility] | Ave [facility] [place] | | | | | [address] | [address] | | | | | Mailcode: CH15P | [phone] | | | | | [facility] | | | | | | and Healing, | | | | | | Building | | | | | | Floor [place], [place] | | | | | | [address] | | | | | | [phone] | | | +--------+ + + + [...]
--- OUTSIDE RECORDS SUMMARY | ~2019-08-12 | XMS | Encounter Summary ---
Demographics + + + | Address | [address] | | | [place] [address] | + + + | Home Phone [...] Team Providers + +------+ + | Care Guardian Family Member Name | Role | Phone | [...] [facility] | [facility] | | | | | [address] | [place], [place] | | | | | Mailcode: CH15P | [address] | | | | | [place] for [facility] | [phone] | | | | | and Healing, | | | | | | | | | | | | Floor [place], [place] | | | | | | [address] | | | | | | [phone] | | | +--------+ + + + [...]
--- OUTSIDE RECORDS SUMMARY | ~2019-08-12 | XMS | Clinical Summary ---
Demographics + + + | Address | [address] | | | [place] [address] | + + + | Home Phone [...] | [facility] | | | and [place]ana | + + + | Organization | [facility] | | | [...] [place] | | | | | [address] | | + + + + + | EDDY FARAH | ECON | Unknown | | + + + + + Care Team Providers + +------+ + | Care Hide House Supervisor Name | Role | Phone | [...] +--------+ +---------+--------+ | MEDICARE | MEDICA | [id number] | 07/15/20 | [phone] | | Medica | | | RE | | 15-Pre | 5 | | re | | | PART A | | sent | | | | | | AND B | | | | | | + +--------+ +--------+ +---------+--------+ | MEDICAID [place] | MEDICA | [id number] | | [phone] | | Medica | [...] | 1990 | [phone] | [place] [address] | | | evita | | | 6 (Home) | | + +--------+ +--------+ + +"
--- OUTSIDE RECORDS SUMMARY | ~2019-08-12 | XMS | Encounter Summary ---
Demographics + + + | Address | [address] | | | [place] [address] | + + + | Home Phone [...] + +------+ + | Care Marine Engineering Teacher Name | Role | Phone [...] + + | 03// | Telephone | [facility] | Alex Sanchez, | Medication (clarify | | 2018 | | Pain Center at | ,PhD [address] | sig on Ketamine) | | | | [facility] | [facility] | | | | | [address] | [place], [place] | | | | | Mailcode: CH15P | [address] | | | | | [facility] | [phone] | | | | | and Healing, | | | | | | Building | | | | | | Floor [facility] [place] | | | | | | [address] | | | | | | [phone] | | | +--------+ + + + [...]
--- OUTSIDE RECORDS SUMMARY | ~2019-08-12 | XMS | Encounter Summary ---
Demographics + + + | Address | [address] | | | [place] [address] | + + + | Home Phone [...] Team Providers + +------+ + | Care Pension Agent Name | Role | Phone | [...] | | | JAYDEN Valdez | [facility], | | | | | Mailcode: Center | [place] [address] | | | | | for Health and | [phone] | | | | | Healing, Building 2 | | | | | | [place], [place] | | | | | | [address] | | | | | | [phone] | | | +--------+--------+ + + + [...]
--- OUTSIDE RECORDS SUMMARY | ~2019-08-12 | XMS | Encounter Summary ---
Demographics + + + | Address | [address] | | | [place] [address] | + + + | Home Phone [...] Providers + +------+ + | Care Jewel Hole Driller Name | Role | Phone | + +------+ + | Allegra Gandhi | PCP | | + +------+ + Encounter Details +--------+ + + + + | Date | Type | Department | Care Team | Description | +--------+ + + + + | 02/13/ | Outside | UNKNOWN DEPARTMENT | Other, Faculty | | | 2011 | Records | [address] | [phone] | | | | | [address] | | | | | | [place], [place] | | | | | | [address] | | | +--------+ + + + [...]
--- OUTSIDE RECORDS SUMMARY | ~2019-08-12 | XMS | Encounter Summary ---
Demographics + + + | Address | [address] | | | [place] [address] | + + + | Home Phone [...] Providers + +------+ + | Care Glove Presser Name | Role | Phone | [...] Center at [facility] [address] Junior Torres MD | Treatment Planning | | | | JAY[address] Valdez | | | | | | Mailcode: Center | | | | | | for Health and | | | | | | [facility], [facility] [address] | | | | | | [place], [place] | | | | | | [address] | | | | | | [phone] | | | +--------+ + + + [...]
--- OUTSIDE RECORDS SUMMARY | ~2019-08-12 | XMS | Encounter Summary ---
Demographics + + + | Address | [address] | | | [place] [address] | + + + | Home Phone [...] Providers + +------+ + | Care Dye Reel Operator Name | Role | Phone | [...] | Diagnoses | Beulah | Edu Pt Cloud Automation Tester | | | | Therapy | CRPS | Janak Martinez MD | [address] | | | | | (complex | [address] | | | | | regional | [address] | Mailcode: | | | | | pain | Mailstop | [facility] | | | | | syndrome), | [id number] | for Health | | | | | lower limb | [place], [place] | and Healing, | | | | | Gait | [address] | Building 1 | | | | | disturbance | Phone: | [place], [place] | | | | | Muscle pain | [phone] | [address] | | | | | Procedures | Fax: | Phone: | | | | | PHYSICAL | [phone] | [phone] | | | | | THERAPY | [...] | | | [address] [place] | Ave [place], [place] | syndrome), lower | | | | [address] | [phone] | limb (Primary Dx) | | | | Mailcode: CH3P | | | | | | [facility] | | | | | | and Healing, | | | | | | Building [address] | | | | | | Floor [place], [place] | | | | | | [address] | | | | | | [phone] | | | +--------+---------+ + + + [...] might be different f rom the original. [id number] BRODY FARAH Date of : 1990 Start of care: 02/14/2012 Date of onset: 02/14/2012 Referring/Attending Practitioner: Janak Riojas MD . Primary/Referral Diagnosis/ICD-9: 355.71B CRPS (complex regional pain syndrome), lower limb Insurance: Payor: [facility] Plan: BCBS OUT OF STATE Product Type: PP O Service period from: 02/14/2012 to: 08/12/2012 Number visits used/authorized: 01/23 [facility] PHYSICAL THERAPY PROGRESS NOTE SUBJECTIVE: Age: 21 y.o. Sex: female Chief complaint: No chief complaint on file. Current: pt has been doing her neck exercises. She is not shaking as much. Her foot hurts t bruno. Now she is working at [employer] 2-3 hours per week, and spends a [...] their status. Guillermo Sanon MSPT [facility] Outpatient Rehabilitation Services Mailcode: Ch3p [address] [facility], [address] [place] [address] documented in this encounter Plan of Treatment Not on filedocumented as of this encounter Procedures + +--------+ + + + | Procedure Name | Priori | Date/Time | Associated Diagnosis | Comments | | | ty | | | | + +--------+ + + + | DC THERAPEUTIC | Routin | 05/11/2012 | CRPS [...]
--- OUTSIDE RECORDS SUMMARY | ~2019-08-12 | XMS | Encounter Summary ---
Demographics + + + | Address | [address] | | | [place] [address] | + + + | Home Phone [...] Providers + +------+ + | Care Digital Project Coordinator Name | Role | Phone [...] | | syndrome | [address] | [facility] | | | | | type 1 of | [address] | Rd [place], | | | | | left lower | [place], [place] | [place] | | | | | extremity | [address] | [address] | | | | | Procedures | Phone: | Phone: | | | | | REQUEST TO | [phone] | [phone] | | | | | SURGERY | Fax: | Fax: | | | | | PARACHUTE OFFICER | [phone] | [phone] | +--------+---------+ + + + + Encounter Details +--------+---------+ + + + | Date | Type | Department | Care Team | Description | +--------+---------+ + + + | 12/07/ | Office | [facility] Comprehensive | Eulogio, | Complex regional | | 2019 | Visit | Pain Center at | MD Irene [address] | pain syndrome type 1 | | | | [facility] | [address] [facility], | of left lower | | | | [address] | [place] [address] | extremity (Primary | | | | Mailcode: CH15P | [phone] | Dx); S/P insertion | | | | [facility] | | of spinal cord | | | | and Healing, | | stimulator | | | | Building , | | | | | | Floor [place], [place] | | | | | | [address] | | | | | | [phone] | | | +--------+---------+ + + + [...] Lujan MD - 12/07/2018 9:10 AM PST [facility] Return Visit Date: 12/07/2018 Chief Complaint Patient presents with Back pain Pain in left leg History of Present Illness: Tracie Farah is a 28 year old female, whose last appoi ntment at the [facility] was December 05, 2018, for [...] her 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 Goes to [employer] with a light load. Has been working at [employer], can' t work on [employer]. Has roommates. Allergies Allergen Reactions Morphine Anaphylaxis [...] GRAM SOLUTION Take as directed by [facility]- 2 gallon bowel prep POLYETHYLENE [...] and summary of old medical records (source: Dragon T[employer]), as summarized in the body of the [...] present for the encounter. Irene Krishnan MD [facility] COMPREHENSIVE PAIN CENTER AT [facility] [address] [facility], 4th Floor Mail Code: [id number], [place] [address] documented in thi s encounter Plan of Treatment Not on filedocumented as of this encounter Visit Diagnoses + + | Diagnosis | + + | Complex regional pain syndrome type 1 of left lower extremity - Primary | + + | S/P insertion of spinal cord stimulator | + + documented in this encounter
--- OUTSIDE RECORDS SUMMARY | ~2019-08-12 | XMS | Encounter Summary ---
Demographics + + + | Address | [address] | | | [place] [address] | + + + | Home Phone [...] Providers + +------+ + | Care Trimmer Operator Three Knife Name | Role | Phone | + [...] | CRPS | Dale Martinez MD | [facility] [address] | | | | | (complex | [address] | [address] | | | | | regional | [address] | [address] | | | | | pain | Mailstop | Mailcode: | | | | | syndrome), | [id number] | [address] | | | | | lower limb | [place], [place] | [address] | | | | | Procedures | [address] | [place], [place] | | | | | [place] BONE &/[place] | Phone: | [address] | | | | | JOINT | [phone] | Phone: | | | | | IMAGING 3 | Fax: | [phone] | | | | | PHASE | [phone] | Fax: | | | | | | | [phone] | +--------+--------+ + + + + Consult [...] | | | regional | [place] | [address] | | | | | pain | FAMILY | Mailstop | | | | | syndrome), | MEDICINE P | 126719 | | | | | lower limb | [address] | [place], [place] | | | | | Gait | [place], | [address] | | | | | disturbance | [place] [address] | Phone: | | | | | Muscle pain | Phone: | [phone] | | | | | Procedures | [phone] | Fax: | | | | | REQUEST TO | Fax: | [phone] | | | | | SURGERY | [phone] | | | | | | MANAGER MERCHANDISING | | | +--------+--------+ + + + + Consultation (Routine) +--------+--------+ + + + + | Status | Reason | Specialty | Diagnoses / | Referred By | Referred To | | | | | Procedures | Contact | Contact | +--------+--------+ + + + + | Closed | | Psychology / | Diagnoses | 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, | 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 Psych | | | | Pain | CRPS | Dale Martinez MD | [address] | | | | Management | (complex | [address] | | | | | regional | [address] | Mailcode: | | | | | pain | Mailstop | [facility] | | | | | syndrome), | [id number] | for Health | | | | | lower limb | [place], [place] | and Healing, | | | | | Gait | [address] | Building 1, | | | | | disturbance | Phone: | 15th Floor | | | | | Muscle pain | [phone] | [place], [place] | | | | | Procedures | Fax: | [address] | | | | | CONSULT TO | [phone] | Phone: | | | | | PAIN CENTER | | [phone] | | | | | | | Fax: | | | | | | | [phone] | +--------+--------+ + + + + Physical Therapy (Routine) +--------+--------+ + + + + | Status | Reason | Specialty | Diagnoses / | Referred By | Referred To | | | | | Procedures | Contact | Contact | +--------+--------+ + + + + | Closed | | Physical | Diagnoses | Beulah, | Edu Pt 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 | | | | Therapy | CRPS | Dale Martinez MD | [address] | | | | | (complex | [address] | | | | | regional | [address] | Mailcode: | | | | | pain | Mailstop | [facility] | | | | | syndrome), | [id number] | for Health | | | | | lower limb | [place], [place] | and Healing, | | | | | Gait | [address] | Building 1 | | | | | disturbance | Phone: | [place], [place] | | | | | Muscle pain | [phone] | [address] | | | | | Procedures | Fax: | Phone: | | | | | PHYSICAL | [phone] | [phone] | | | | | THERAPY | [...] | | | 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 | FAMILY | Mailstop | | | | | of lower | MEDICINE P | [id number] | | | | | limb | [address] | [place], [place] | | | | | | [place], | [address] | | | | | | [place] [address] | Phone: | | | | | | Phone: | [phone] | | | | | | [phone] | Fax: | | | | | | Fax: | [phone] | | | | | | [phone] | | +--------+--------+ + + + + Encounter Details +--------+---------+ + + + | Date | Type | Department | Care Team | Description | +--------+---------+ + + + | 02/13/ | Office | [facility] Comprehensive | Dale [place]u, | CRPS (complex | | 2011 | Visit | Pain Center at | [address] | regional pain | | | | [facility] | [address] [address] | syndrome), lower | | | | [address] | [place], [place] | limb; Gait | | | | Mailcode: [facility] | [address] | disturbance; Muscle | | | | [place] for [facility] | [phone] | pain; Adjustment | | | | and Healing, | | reaction | | | | Building | | | | | | Floor [place], [place] | | | | | | [address] | | | | | | [phone] | | | +--------+---------+ + + + [...] Diagnostic evaluation: Records from CRPS program at [facility]. 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 [...] employed by the psychologists here at the [facility]. 2.2 Physical therapy can reduce pain and improve functional status. Suggest Guillermo Sanon . 3. Medication suggestions: 3.1 Continue titrating up duloxetine. 3.2 As for any patient being managed with chronic opioids, we do recommend that the patien t have a signed [place] Material Risk Notice, agree to whatever refill [...] procedure to assess the effects in detail. [facility] C[facility] Pre-Procedure Instructions: The procedure you discussed with your doctor is called: LUMBAR SYMPATHETIC BLOCK. Please m sintia sure this is scheduled with the Planishing Hammer Operator. Please bring a tow driver with you. We may give you medications that make you drowsy or otherw ise unsafe to drive. If you do not have a tow driver, we will not be able to [...] PLEASE CONTACT THE COMPREHENSIVE PAIN CENTER AT [phone]) FOR QUESTIONS OR IF YOU NEED TO CANCEL YOUR APPOINTMENT. [facility] Comprehensive Pain Center documented in [...] pain management consultation by BJORN Mi [place] [facility] MEDICINE [address] [place] [address] Reason for visit Chief Complaint Patient presents [...] following spec [facility] issues to be addressed: Other options [...] by several orthopedic surgeons, Dr. Charles in [place], physical therapy, Occupational Therapy. Diagnostic and radiologic [...] no pain relief. Admitted to the inpatient [facility] program for 1 month in the [...] entin, pregabalin, topiramate, tramadol, multiple opioids. Current [place] about 6-8/day. St arting duloxetine, at 30 mg/day. She feels that the most effective medication treatments ar e or have been opioids. As a result of her pain, Ms. Farah notes multiple changes in her life, including: "I don 't have a life, can't work, can't go to school." Poor mood, sleep, activity. Using crutche s recently because of pain flare. 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 Goes to [employer] with a light load. Has been working at [employer], can' t work on [employer]. Has roommates. Current Medication List 02/14/12 9:50 [...] As part of today's visit the [facility] new patient questionnaire was [...] ricks, the pediatric inpatient pain program at [facility], and two attempted lumbar sympathetic blocks. [...] CRPS patients (Loretta Rousseau, et al. Katrina Inspector Repairer [employer] [facility]. 2010;152: 152-158). Other treatment options for the future: Spinal cord stimulation (SCS) has good evidence f or providing fci relief in CRPS (Complex Regional Pain Syndrome) [...] [facility]: [facility] Suggest three ph ase bone scan-- [...] psychologists here at the [facility]. ORDER PLACED 2.2 Physical therapy can reduce pain and improve functional status. Suggest Guillermo Sanon . ORDER PLACED 3. Medication suggestions: 3.1 Continue titrating up duloxetine. 3.2 As for any patient being managed with chronic opioids, we do recommend that the patien t have a signed [facility] Material Risk Notice, agree to [...] her PCP, BJORN Villanueva. DALE CANTU MD Priming Mixture Carrier, [facility] Monogram Technician, Pain Medicine Professor, Anesthesiology & Perioperative [...] Gerry | | | | | | oNe 02/15/2012 8:36 | | | | | [...]
--- OUTSIDE RECORDS SUMMARY | ~2019-08-12 | XMS | Encounter Summary ---
Demographics + + + | Address | [address] | | | [place] [address] | + + + | Home Phone [...] Providers + +------+ + | Care Elevator Operator Name | Role | Phone | + +------+ + | Allegra Gandhi | PCP | | + +------+ + Encounter Details +--------+ + + + + | Date | Type | Department | Care Team | Description | +--------+ + + + + | 03/01/ | Results | [facility] | Janak Riojas, | | | 2011 | Only | Pain Center at | MD [address] [address] | | | | | [facility] | [facility] [id number] | | | | | [address] | [place], [place] | | | | | Mailcode: CH15P | [address] | | | | | [place] for [facility] | [phone] | | | | | and Martina, | | | | | | | | | | | | Floor [place], [place] | | | | | | [address] | | | | | | [phone] | | | +--------+ + + + [...]
--- OUTSIDE RECORDS SUMMARY | ~2019-08-12 | XMS | Encounter Summary ---
Demographics + + + | Address | [address] | | | [place] [address] | + + + | Home Phone [...] Providers + +------+ + | Care Seo Team Lead Name | Role | Phone | [...] ogy | | Ava Torres, | [address] | | | | | Constipation | MD [address] | [address] | | | | | , | [address] | Mailcode: | | | | | unspecified | Giuliana Maldonado | [facility] Center | | | | | constipation | [facility] [place] | for Health | | | | | type | [address] | and Healing, | | | | | Procedures | | Building 2 | | | | | CONSULT TO | | [place], [place] | | | | | GI PROCEDURE | | [address] | | | | | UNIT: | | Phone: | | | | | ANORECTAL | | [phone] | | | | | MANOMETRY | | Fax: | | | | | [place] ANAL | | [phone] | | | | | PRESSURE | [...] | ogy | | [place], | [address] | | | | | Gastroparesi | Allegra Nieto, | [address] | | | | | s | [place] [address] | Mailcode: | | | | | | [address] | Center for | | | | | | [place], | Health and | | | | | | [place] [address] | Healing, | | | | | | Phone: | Building 2 | | | | | | [phone] | [place], [place] | | | | | | Fax: | [address] | | | | | | [phone] | Phone: | | | | | | | [phone] | | | | | | | Fax: | | | | | | | [phone] | +--------+--------+ + + + + Encounter Details +--------+---------+ + + + | Date | Type | Department | Care Team | Description | +--------+---------+ + + + | 08/10/ | Office | Digestive Health | Ava Carbajal | Constipation, | | 2015 | Visit | Center at [facility] [address] | MD Meilssa | unspecified | | | | [address] | | constipation type | | | | Mailcode: Center | | (Primary Dx) | | | | for Health and | | | | | | Healing, Building 2 | | | | | | [place], [place] | | | | | | [address] | | | | | | [phone] | | | +--------+---------+ + + + [...] in their attached note. Celia Lin MD Environmental Issues Instructorno bake molder Division of Gastroenterology & Hepatology [facility] va Carbajal MD - 08/09/2016 8:40 PM PDT Gastroenterology Initial Clinic Note 08/09/2016 CHIEF COMPLAINT/IDENTIFICATION: "Gastroparesis"-Nausea emesis and abdominal pain -SECOND O GERMAINE Dr. Flores-Radha Garcia GI Dr[facility] PCP: HANDY Villalpando HISTORY OF PRESENT [...] had CT abdomen w contrast done at [facility] on 10/23/15 showing large [...] GI MDS: [facility]: -increased CRP 06/19/16: Lipase-normal (8) [...] form versus functional syndrome. Would also con intranet developer GERD as a cause for her [...]
--- OUTSIDE RECORDS SUMMARY | ~2019-08-12 | XMS | Encounter Summary ---
Demographics + + + | Address | [address] | | | [place] [address] | + + + | Home Phone [...] Providers + +------+ + | Care Clamp Remover Name | Role | Phone | + [...] ogy | | Ava Torres, | [address] | | | | | Constipation | MD [address] | [address] | | | | | , | [address] | Mailcode: | | | | | unspecified | Giuliana Maldonado | [facility] | | | | | constipation | [facility] [place] | for Health | | | | | type | [address] | and Healing, | | | | | Procedures | | Building 2 | | | | | CONSULT TO | | [place], [place] | | | | | GI PROCEDURE | | [address] | | | | | UNIT: | | Phone: | | | | | ANORECTAL | | [phone] | | | | | MANOMETRY | | Fax: | | | | | [place] ANAL | | [phone] | | | | | PRESSURE | [...] | ogy | | [place], | [address] | | | | | Gastroparesi | Allegra Nieto, | [address] | | | | | s | [place] [address] | Mailcode: | | | | | | [address] | Center for | | | | | | [place], | Health and | | | | | | [place] [address] | Healing, | | | | | | Phone: | Building 2 | | | | | | [phone] | [place], [place] | | | | | | Fax: | [address] | | | | | | [phone] | Phone: | | | | | | | [phone] | | | | | | | Fax: | | | | | | | [phone] | +--------+--------+ + + + + Encounter Details +--------+---------+ + + + | Date | Type | Department | Care Team | Description | +--------+---------+ + + + | 08/10/ | Office | Digestive Health | Ava Carbajal | Constipation, | | 2015 | Visit | Center at [facility] [address] | MD Melissa | unspecified | | | | [address] | | constipation type | | | | Mailcode: Center | | (Primary Dx) | | | | for Health and | | | | | | Healing, Building 2 | | | | | | [place], [place] | | | | | | [address] | | | | | | [phone] | | | +--------+---------+ + + + [...] in their attached note. Celia Lin MD Professor Of Voicesolids control technician Division of Gastroenterology & Hepatology [facility] va Carbajal MD - 08/09/2016 8:40 PM PDT Gastroenterology Initial Clinic Note 08/09/2016 CHIEF COMPLAINT/IDENTIFICATION: "Gastroparesis"-Nausea emesis and abdominal pain -SECOND O GERMAINE Dr. Flores-Radha Garcia GI [facility] PCP: HANDY Villalpando HISTORY OF [...] had CT abdomen w contrast done at [facility] on 10/23/15 showing large stool [...] GI MDS[facility] LABS: -increased CRP 06/19/16: [...] form versus functional syndrome. Would also con radiological metallurgist GERD as a cause for her nausea [...]
--- OUTSIDE RECORDS SUMMARY | ~2019-08-12 | XMS | Clinical Summary ---
Demographics + + + | Address | [address] | | | [place] [address] | + + + | Home Phone | | + + + | Preferred Language | Unknown | + + + | Marital Status | Single | + + + | Episcopal Affiliation | 1013 | + + + | Race | Unknown | + + + | Ethnic Group | Unknown | + + + Author + + + | Author | [facility] (Historical as of | | | 06-30-19) | + + + | Organization | [facility] (Historical as of | | | 06-30-19) [...] + +------+ + | Care Assembly Machine Tool Setter Name | Role | Phone | [...] since. She has [facility] | [facility] at pain clinics in [place] as well and | | [place], [place]. She has had sympathetic nerve blocks [...] +------+-------+ + | MEDICARE | MEDICA | [id number] | | | [address] | | | RE | | | | [place] [address] | | | IP-OP | | | | | + +--------+ +------+-------+ + | PREMERA | PREMER | [id number] | | | [address] [address] | | | A BLUE | 3 | | | [place], [place] | | | CARD | | | | [address] | + +--------+ +------+-------+ + | MEDICAID | [place] | [id number] | | | [address] | | | CARE | | | | [place] | | | [place] | | | | [address] | + +--------+ +------+-------+ + + +--------+ [...] | | al/Fam | | 1989 | [phone] | [place], [place] | | | evita | | | [phone] | [phone] | + +--------+ +--------+ + +
--- OUTSIDE RECORDS SUMMARY | ~2019-08-12 | XMS | Encounter Summary ---
Demographics + + + | Address | [address] | | | [place] [address] | + + + | Home Phone [...] Team Providers + +------+ + | Care Pot Feeder Name | Role | Phone | [...] | CRPS | Janak Martinez MD | [facility] [address] | | | | | (complex | [address] | [address] | | | | | regional | [address] | [address] | | | | | pain | Mailstop | Mailcode: | | | | | syndrome), | [id number] | [address] | | | | | lower limb | [place], [place] | [address] | | | | | Procedures | [address] | [place], [place] | | | | | [place] BONE &/[place] | Phone: | [address] | | | | | JOINT | [phone] | Phone: | | | | | IMAGING 3 | Fax: | [phone] | | | | | PHASE | [phone] | Fax: | | | | | | | [phone] | +--------+--------+ + + + + Reason [...] | CRPS | Janak Martinez MD | [facility] [address] | | | | | (complex | [address] | [address] | | | | | regional | [address] | [address] | | | | | pain | Mailstop | Mailcode: | | | | | syndrome), | [id number] | [address] | | | | | lower limb | [place], [place] | [address] | | | | | Procedures | [address] | [place], [place] | | | | | [place] BONE &/[place] | Phone: | [phone] | | | | | JOINT | [phone] | Phone: | | | | | IMAGING 3 | Fax: | [phone] | | | | | PHASE | [phone] | Fax: | | | | | | | [phone] | +--------+--------+ + + + + Encounter Details +--------+ + + + + | Date | Type | Department | Care Team | Description | +--------+ + + + + | 02/13/ | Hospital | Nuclear Medicine | | | | 2011 | Encounter | at [facility] [address] | | | | | | [address] | | | | | | Mailcode: [address] | | | | | | [address] | | | | | | [place], [place] | | | | | | [address] | | | | | | [phone] | | | +--------+ + + + [...]
--- OUTSIDE RECORDS SUMMARY | ~2019-08-12 | XMS | Encounter Summary ---
Demographics + + + | Address | [address] | | | [place] [address] | + + + | Home Phone [...] Providers + +------+ + | Care Home Therapy Teacher Name | Role | Phone | [...] | | | regional | [place] | [address] | | | | | pain | FAMILY | Mailstop | | | | | syndrome), | MEDICINE P | 488392 | | | | | lower limb | [address] | [place], [place] | | | | | Pain in | [place], | [address] | | | | | joint, lower | [place] [address] | Phone: | | | | | leg | Phone: | [phone] | | | | | Procedures | [phone] | Fax: | | | | | REQUEST TO | Fax: | [phone] | | | | | SURGERY | [phone] | | | | | | PERSONNEL AND PAYROLL TECHNICIAN | | | +--------+--------+ + + [...] | | | 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 | Dale Cantu, | CRPS (complex | | 2011 | Visit | Pain Center at | MD [address] [facility] | regional pain | | | | [facility] | [facility] 705450 | syndrome), lower | | | | [address] | [place], [place] | limb; Pain in joint, | | | | Mailcode: CH15P | [address] | lower leg | | | | [facility] | [phone] | | | | | and Healing, | | | | | | | | | | | | Floor [place], [place] | | | | | | [address] | | | | | | [phone] | | | +--------+---------+ + + + [...] Dale Cantu MD - 06/06/2012 11:49 [facility]Procedure Instructions: The procedure you discussed with your doctor is called: SCS TRIAL LUMBAR [facility]. Please make sure this is scheduled with the Charge Authorizer. Please bring a dump truck driver with you. We may give you medications that make you drowsy or otherw ise unsafe to drive. If you do not have a dump truck driver, we will not be able [...] PLEASE CONTACT THE COMPREHENSIVE PAIN CENTER AT [phone] ([phone]) FOR QUESTIONS OR IF YOU NEED TO [...] not signed. Given information. DALE CANTU MD Drafter Castings, [facility] Organ Pipe Finisher, Pain Medicine Professor, Anesthesiology & Perioperative Medicine ollHomer manriquez MD - 06/06/2012 11:17 AM PDT [facility] Return Visit [...] and a pain drawing which I reviewed. [facility] Brief Pain [...] Review of Systems obtained by the BLOCK CUTTER was reviewed. Additional Review of Systems: Bones, [...] up with Dr. Dale Cantu at the [facility] today for left foot CRPS which began [...] therapy Homer Elaine MD Pain Medicine Fellow [facility] [place] Evelia Parsons - 11:07 AM PDTCMA History: [...]
--- OUTSIDE RECORDS SUMMARY | ~2019-08-12 | XMS | Encounter Summary ---
Demographics + + + | Address | [address] | | | [place] [address] | + + + | Home Phone [...] Providers + +------+ + | Care Tax Lawyer Name | Role | Phone | + +------+ + | Justo Vazquez MD | PCP | | + +------+ + Encounter Details +--------+ + + + + | Date | Type | Department | Care Team | Description | +--------+ + + + + | 12/02/ | Document-Sc | Health Information | Unknown . | | | 2017 | anned | Services [id number] | | | | | | [address] | | | | | | Mailcode: OP17A | | | | | | [facility] | | | | | | [place], [place] | | | | | | [address] | | | | | | [phone] | | | +--------+ + + + [...]
--- OUTSIDE RECORDS SUMMARY | ~2019-08-12 | XMS | Encounter Summary ---
Demographics + + + | Address | [address] | | | [place] [address] | + + + | Home Phone [...] +------+ + | Care Welding Machine Operator Gas Name | Role | Phone | + [...] 2016 | | Pain Center at | CHECK EXAMINER [address] | | | | | [facility] | [place], [place] | | | | | [address] | [address] | | | | | Mailcode: CH15P | [phone] | | | | | [facility] | | | | | | joana Mack, | | | | | | Building | | | | | | [place], [place] | | | | | | [address] | | | | | | [phone] | | | +--------+ + + + [...]
--- OUTSIDE RECORDS SUMMARY | ~2019-08-12 | XMS | Encounter Summary ---
Demographics + + + | Address | [address] | | | [place] [address] | + + + | Home Phone [...] + +------+ + | Care Medical Assistant Per Diem Name | Role | Phone | + [...] | Request (ketamine) | | | | [facility] | [address] | | | | | [address] | [place], [place] | | | | | Mailcode: CH15P | [address] | | | | | [facility] | [phone] | | | | | and Healing, | | | | | | Building | | | | | | [place], [place] | | | | | | [address] | | | | | | [phone] | | | +--------+ + + + [...]
--- OUTSIDE RECORDS SUMMARY | ~2019-08-12 | XMS | Encounter Summary ---
Demographics + + + | Address | [address] | | | [place] [address] | + + + | Home Phone [...] Providers + +------+ + | Care Business Improvement Manager Name | Role | Phone | [...] | 2015 | Encounter | Center at [facility] [address] | MD Melissa | | | | | [address] | | | | | | Mailcode: Center | | | | | | for Health and | | | | | | [facility], [address] | | | | | | [place], [place] | | | | | | [address] | | | | | | [phone] | | | +--------+ + + + [...]
--- OUTSIDE RECORDS SUMMARY | ~2019-08-12 | XMS | Encounter Summary ---
Demographics + + + | Address | [address] | | | [place] [address] | + + + | Home Phone [...] Team Providers + +------+ + | Care Optometric Coordinator Name | Role | Phone | [...] [facility] [address] | [address] | pain | | | | [address] | Giuliana Maldonado [place], | | | | | Mailcode: [place] | [place] [address] | | | | | for Health and | [phone] | | | | | [place] [address] | | | | | | [place], [place] | | | | | | [address] | | | | | | [phone] | | | +--------+ + + + [...]
--- OUTSIDE RECORDS SUMMARY | ~2019-08-12 | XMS | Encounter Summary ---
Demographics + + + | Address | [address] | | | [place] [address] | + + + | Home Phone [...] Providers + +------+ + | Care Personal Lines Insurance Agent Name | Role | Phone | + +------+ + | Justo Vazquez MD | PCP | | + +------+ + Encounter Details +--------+ + + + + | Date | Type | Department | Care Team | Description | +--------+ + + + + | 10/19/ | Telephone | [facility] | Ilene Bright, | | | 2017 | | Pain Center at | FIRE CONTROLMAN [address] | | | | | [facility] | Ave [place], [place] | | | | | [address] | [address] | | | | | Mailcode: CH15P | [phone] | | | | | [facility] | | | | | | and Healing, | | | | | | | | | | | | [place], [place] | | | | | | [address] | | | | | | [phone] | | | +--------+ + + + [...]
--- OUTSIDE RECORDS SUMMARY | ~2019-08-12 | XMS | Encounter Summary ---
Demographics + + + | Address | [address] | | | [place] [address] | + + + | Home Phone [...] Providers + +------+ + | Care Environmental Field Services Technician Name | Role | Phone | [...] | | | | | syndrome | [place] | [facility] | | | | | type [address] | [address] | Rd [place], | | | | | left lower | [place], [place] | [place] | | | | | extremity | [address] | [address] | | | | | Procedures | Phone: | Phone: | | | | | REQUEST TO | [phone] | [phone] | | | | | SURGERY | Fax: | Fax: | | | | | [facility]ELOP[facility]P | [phone] | [phone] | +--------+---------+ + + + + Encounter Details +--------+ + + + + | Date | Type | Department | Care Team | Description | +--------+ + + + + | 12/ | Procedure | Pain Center at [facility] | Alex Sanchez, | Foot pain; Knee | | 2017 | | 15th Floor [address] | ,PhD [address] | pain; Procedure | | | | [address] Mailcode: | [facility] | | | | | CH15P [facility] | [place], [place] | | | | | Health and Healing, | [address] | | | | | [facility] | [phone] | | | | | Floor [place], [place] | | | | | | [address] | | | | | | [phone] | | | +--------+ + + + [...] Sonia Key - 09/25/2018 1:00 PM PST [facility] Patient Instructions - Post Interventional Procedure Date: 09/25/2018 Name: Tracie Farah Date of : 1990 Procedure Performed: SCS DRG TRIAL LUMBAR [facility]. Procedure Provider: Alex Sanchez MD,PhD If you have any problems you believe are associated with your procedure tonight, Please call the Hospital Front Desk Representative, and ask for the Pain Management Consu ltant. If you have problems or questions between 9:00 am and 4:00 pm, Please call the [facility] Nurse Triage Line, . [...] symptoms, dressing, SCS function, or chills. During EXECUTIVE SECRETARY open ho urs, call the EXECUTIVE SECRETARY ([phone]), after hours call the small machine bindery operator at [facility] ([phone]) and ask for the Adult Pain Service implementation director. Identify yourself as a [facility] [...] to the pat ient. Aleta Rebollar MD [facility] Center Qjisomorpiupuu signed by Sonia Key at 09/25/2018 3:07 PM PST documented in this encounter Progress Notes Alex Sanchez MD,PhD - 09/25/2018 1:00 PM PSTI was present for the entire procedure ( DRG SCS trial) and all bocanegra elements of this visit. I reviewed the documentation of the othe r [facility] providers and concur with Dr. Rebollar's findings. I edited his note. Alex Sanchez MD,PhD Memorandum Statement Clerk Anesthesiology and Pain Management [facility] [place], Zain Hale RN - 09/25/2018 1:00 [...] by physician. Concentration is 150mg/mL. Compounded by [facility] ) KETOROLAC IM Inject into the [...] directed by [facility] Digestive [facility]- 2 gallon bowel prep POLYETHYLENE GLYCOL 3350 [...] PRE-SEDATION: Date: September 25, 2018 Tracie Farah [id number] 1990 ALLERGIES: Morphine Previous reaction to Sedation/Analgesia: [...] of physical activity and social withdrawal oIsadora flahetry RN - 09/25/2018 1:00 PM PSTFormatting of t his note might be different from the original. PRE-SEDATION AND PROCEDURE NOTES: Date: September 25, [address] [facility] [id number] 1990 ALLERGIES: Morphine Previous reaction to Sedation/Analgesia: [...] See Sedation Flow Sheet. Tracie Donaldson [facility] [id number] 1990, presents to clinic for: Procedure: bilateral [...] OPERATIVE NOTE Date: September 25, 2018 Location: [facility] Procedure Room Tracie Donaldson [facility] [id number] :1990, presents to clinic for: PROCEDURE: DRG Spinal Cord Stimuation Trial with St. [employer] system LEVEL/LATERALITY: left L4, L5 PRE-OPERATIVE DIAGNOSIS: G90.522 Complex regional pain syndrome type 1 of left lower extremity POST-OPERATIVE DIAGNOSIS: G90.522 Complex regional pain syndrome type 1 of left lower extremity ATTENDING PHYSICIAN: Alex Sanchez MD,PhD HAT BRUSHER MACHINE: Fellow Aleta Rebollar ANESTHESIA: Sedation delivered by [...] sedation. Ms. Farah was escorted to the [facility] Procedure R oom, where she was [...] patient. Ms. Farah was transported to the [facility] Pain Center post-procedure recovery area where she made an uneventful recovery. Programming was performed in the PACU with aid of the device technical sales representative and Ms. Susie faust was sent home with a few programs . This was a unilateral procedure. Alex Sanchez MD,PhD was present for the entire procedure. Images were saved, and sent to [employer]. Ms. Farah was transported to the [facility] [place] post-procedure recovery area. She had an uneventful recovery. Before the procedure, Ms. Farah's pain was 7/10. After the procedure Ms. Farah's pain was 7/10. I, Sonia Key, am functioning as a scribe for Aleta Rebollar MD. I have reviewed and verified the above scribed note of my visit with this patient as record ed by Sonia Key. Aleta Rebollar MD PAIN CENTER AT [facility] 15TH FLOOR [address] Mail Code: [address] [place] [address] documented in t his encounter Plan of Treatment Not on filedocumented as of this encounter Procedures + +--------+ + + + | Procedure Name | Priori | Date/Time | Associated Diagnosis | Comments | | | ty | | | | + +--------+ + + + | VT MOD SEDATION | Routin | 09/25/2018 | Complex regional | | | >=5YRS SAME MD/QUAL | e | 7:31 PM | pain syndrome type 1 | | | PROV; INIT 15 MIN | | PST | of left lower | | | | | | extremity | | + +--------+ + + + | VT PERCUT IMPLNT | Routin | 09/25/2018 | [...]
--- OUTSIDE RECORDS SUMMARY | 2019-08-12 15:14 | XMS ---
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 Events No recent Security Events currently on file CRITERIA MET - Group Notification - [facility] - Has Care Guidelines - PDMP - [facility] - 2 Visits in 30 Days CARE PROVIDERS MARCELINO PERRY Internal Medicine 07/18/2018-Dayron VELOZ PHONE: [phone] Aron Hannah Anesthesiology: Pain Medicine 07/18/2018-Current PHONE: Unknown DR MARCELINO PERRY Primary Care Current PHONE: [phone] Allegra Gandhi Primary Care Current PHONE: Unknown Guidelines Source: [facility] Guidelines Date: 05/18/2018 Care Recommendation: PATIENT HAS HISTORY COMPLEX REEGIONAL PAIN SYNDROME WELL CYCLICAL ABDOMINAL PAIN/NAUSEA/VOMITING.\T\nbsp; UNDER TREATMENT WITH ARON HANNAH MD PHD PAIN MANAGMENT [facility].\T\nbsp; FOLLOW THIS REGIMEN WHEN PRESENTING TO ED FOR RESOLUTION OF SYMPTOMS: *HYDRATION IV *HYDROMORPHONE 1MG IV * KETOROLAC 30 MG IV *PROMETHAZINE 25MG IV Additional care guidelines exist for the following facilities: [facility] ( 05/21/2019 ) Care History Medical/Surgical 05/02/2018 [facility] - Patient is currently established with [facility]. If patient is seen in the ED during business hours. Please contact CHWs at [facility] at Ext [phone]. Care Recommendation: This patient has had 5 or more Emergency Department visits in the last 12 months.\T\nbsp; Patient requires education on the scope and purpose of the ED as an acute care provider not a Primary Care Provider and should not be utilized for chronic conditions.\T\nbsp; If patient returns to ED please contact Community Health WorkerIlene at [phone]. These are guidelines and the provider should exercise clinical judgment when providing care. E.D. VISIT COUNT (12 MO.) [address] [facility] TOTAL 7 NOTE: Visits indicate total known visits. ED/UCC VISIT TRACKING (12 MO.) 08/12/2019 15:[address] [facility] [place] TYPE: Emergency COMPLAINT: - ABD PAIN, NAUSEA 08/10/2019 13:43 [facility] [place] TYPE: Emergency COMPLAINT: - ABD/BACK PAIN, VOMITING 08/08/2019 18:18 [facility] TYPE: Emergency COMPLAINT: - SEVERE ABD AND BACK PAIN, VOMITING DIAGNOSES: - Other watcher automat long goods (current) drug therapy - Complex regional pain syndrome I, unspecified - Unspecified abdominal pain - Allergy status to other drugs, medicaments and biological substances status - Allergy status to narcotic agent status 12/30/2018 21:48 [facility] [place] TYPE: Emergency COMPLAINT: - L LEG PAIN,NON INJURY DIAGNOSES: - Pain in left leg - Allergy status to other drugs, medicaments and biological substances status - Other residential (current) drug therapy - Allergy status to narcotic agent status - Acquired absence of other organs - Other chronic pain 10/22/2018 21:19 [facility] [place] TYPE: Emergency COMPLAINT: - ABD PAIN DIAGNOSES: - Nausea with vomiting, unspecified - Cyclical vomiting, not intractable - Allergy status to narcotic agent status - Allergy status to other drugs, medicaments and biological substances status - Other watcher automat long goods (current) drug therapy - Unspecified abdominal pain 10/08/2018 15:00 [facility] [place] TYPE: Emergency COMPLAINT: - WOUND CHECK DIAGNOSES: - Unspecified contact dermatitis, unspecified cause - Other residential (current) drug therapy - Allergy status to [...] SI - Other chronic pain - Other residential (current) drug therapy INPATIENT VISIT TRACKING (12 MO.) No inpatient visits to display in this time frame [email or web address]
[2019-08-12] MEDS ORDERED: CLONIDINE HCL0.2 MG PO (15:29)
--- NOTE | 2019-08-12 19:00 | NUR ---
RECEIVED REPORT FROM FORTUNATO VAZQUEZ. pt WILL BE ARRIVING SHORTLY.
--- NOTE | 2019-08-12 19:49 | NUR ---
PT ADMITTED FROM ED, SELF TRANSFERED FROM STRETCHER TO STANDING SCALE, USED BATHROOM, THEN INTO BED. A/O; STATED SHE WAS HAVING SOME DISCOMFORT, BUT HAD JUST BEEN MEDICATED FOR PAIN IN THE ER.
--- NOTE | 2019-08-12 19:50 | NUR ---
pt STEVEN, SHERMAN, RN AND HOOP MAKER ASSISTING WITH ADMISSION.
--- NOTE | 2019-08-12 21:15 | NUR ---
FORTUNATO WHITAKER IN ROOM GIVING MEDICATION.
--- NOTE | 2019-08-12 22:50 | NUR ---
ASSESSMENT DONE. pt REPORTED 6/10 PAIN. PRN MEDICATION GIVEN (SEE MAR). BOLUS COMPLETE MAINTANENCE FLUIDS STARTED. DISCUSSED AND AGREED ON PLAN OF CARE. NO FURTHER REQUESTS AT THIS TIME. CALL LIGHT WITHIN REACH.
--- NOTE | 2019-08-13 01:13 | NUR ---
MEDICATIONS GIVEN (SEE MAR). VITALS AND I&O RECORED. pt RATED PAIN 5/10. LIQUIDS PROVIDED. NO FURTHER REQUESTS AT THIS TIME. CALL LIGHT WITHIN REACH.
--- NOTE | 2019-08-13 03:08 | NUR ---
PRN PAIN MED GIVEN FOR 7/10 PAIN. NO REQUESTS AT THIS TIME. CALL LIGHT WITHIN REACH.
--- NOTE | 2019-08-13 05:25 | NUR ---
pt RESTING IN BED. VITALS AND I&O RECORDED. PAIN 04/23. NO REQUESTS AT THIS TIME. CALL LIGHT WITHIN REACH.
--- NOTE | 2019-08-13 06:37 | NUR ---
pt RESTED ON AND OFF DURING SHIFT. PAIN TOLERATED WITH REGULAR PRN MEDICATIONS. NAUSEA TOLERATED WITH PRN NAUSEA MEDS. LEFT LEG RESTRICTED (REGIONAL PAIN SYNDROME). NO EMESIS. VOIDING QS. INDEPENDENT IN ROOM. IVF INFUSING. USES CALL LIGHT APPROPRIATELY.
--- NOTE | 2019-08-13 07:27 | NUR ---
RECIEVED BEDSIDE REPORT FROM FORTUNATO RAZO. PT HAD PHENERGREN RUNNING, NOW COMPLETE. IVF RUNNING IN PIV IN R AC. PORT IS NOT ACESSED DUE TO LACK OF BLOOD RETURN. PT IS TOLERATING THE PIV WELL. PT IS ALERT AND AWAKE, VERY PLEASANT. STATES SHE HAS NOT VOMITED SINCE ADMIT, PAIN IS CONTROLED.
--- NOTE | 2019-08-13 09:52 | NUR ---
PT TOLERATED BREAKFAST WELL. PER HER REQUEST PRN DOSE OF MIRALAX GIVEN. PT READY TO GO TO IMAGINING TO GET PORT CHECKED.
--- NOTE | 2019-08-13 10:00 | NUR ---
SPOKE WITH PATIENT IN ROOM. PATIENT RESTING QUIETLY IN DARKENED ROOM. STATES SHE FEELS "LITTLE BETTER, STILL HURTING SOME". PATIENT LIVING WITH PARENTS, PLANS TO RETURN HOME WITH THEM. PATIENT KNOWS OF NO BARRIERS TO RETURN HOME AT DISCHARGE SAFELY. PATIENT HAS TRANSPORTATION TO FOLLOWUP APPOINTMENTS. PATIENT UNDERSTANDS DIAGNOSIS AND MEDICATIONS. QUESTIONS ANSWERED. WILL FOLLOW NEEDED.
--- NOTE | 2019-08-13 10:58 | NUR ---
IMAGING HERE TO TAKE PT TO FLOROSCOPE. PT WILL BE OFF FLOOR UNTIL APROX 1130.
--- NOTE | 2019-08-13 11:30 | NUR ---
WENT TO RADIOLOGY TO ACCESS PORT FOR FLOW STUDY. IMAGING ASSISTED, PORT HAD IMMEDIATE AND NELSON BLOOD FLOW. STUDY CANCELED. DRESSING PLACED. PT TOLERATED WELL AND WOULD LIKE TO USE IT RATHER THAN PERIPHERAL.
--- NOTE | 2019-08-13 14:33 | NUR ---
PAIN CONTROL SEEMS TO BE AN ISSUE WITH PT. RESTING IN BED, WITH RM DARKENED. SHE IS ALERT, ORIENTED AND APPEARS TO BE TRYING HARD TO COPE. PT REQUESTED PRAYER, GAVE A G.POST. WILL FOLLOW NEEDED
[2019-08-13] MEDS ORDERED: CLONIDINE HCL0.1 MG PO (16:40)
--- NOTE | 2019-08-13 16:41 | NUR ---
Medications reconciled using pharmacy records and patient interview
--- NOTE | 2019-08-13 17:53 | NUR ---
PT HAS BEEN INDEPENTDENT IN ROOM. CALLS APROPRIATELY. IVF RUNNING PER ORDER. VOIDING WELL. MIRALAX GIVEN PER PRN ORDER AND PT REQUEST. TORADOL IV X1, DILAUDID PO X1. NO VOMITING, MILD NAUSEA AFTER BREAKFAST. PT STATES SHE ATE MORE THAN SHE SHOULD. TOLERATED CRACKERS AND JUICE LATER.
--- NOTE | 2019-08-13 19:20 | NUR ---
CHARGE NURSE REPORT RECEIVED FROM [facility]. NO NEEDS AT THIS TIME.
--- NOTE | 2019-08-13 19:50 | NUR ---
RECEIVED REPORT FROM DAY SHIFT RN. PATIENT IS RESTING IN BED. PATIENT DENIES ANY NEEDS. CALL LIGHT IN REACH.
--- NOTE | 2019-08-13 20:19 | NUR ---
PATIENT ASSESMENT COMPLETED. PATIENT IS RESTING IN BED WATCHING TV ON HER LABTOP. PATIENT COMPLAINS OF NAUSEA. PATIENT GIVEN PRN NAUSEA MEDICATION. PATIENT COMPLAINS OF 7/10 PAIN IN HER ABD. PATIENT GIVNE PRN PAIN MEDICATION PER ORDER. PATIENTS INTAKE AND OUTPUT RECORDED. PATIENTS VITALS TAKEN AND RECORDED. PATIENTS SCHEDULED MEDICATIONS GIVEN PER ORDER. PATIENT PROVIDED WITH GRAPE JUICE AND CRACKERS PER REQUEST. NO FURTHER NEEDS NOTED. CALL LIGHT IN REACH.
--- NOTE | 2019-08-13 20:23 | NUR ---
GRAPE JUICE WITHOUT ICE AND RAJNI CRACKERS GIVEN.
--- NOTE | 2019-08-13 22:39 | NUR ---
PATIENT IS RESTING IN BED. PATIENT HAS SLEEP MASK ON AND MUSIC PLAYING. PATIENT DENIES ANY NEEDS. CALL LIGHT IN REACH. NO PAIN OR NAUSEA NOTED.
--- NOTE | 2019-08-14 00:45 | NUR ---
PATIENT CALLED TO HAVE THE HAT EMPTIED. DONE.
--- NOTE | 2019-08-14 01:12 | NUR ---
PATIENT CALLED TO HAVE HAT EMPTIED. BUSINESS OWNER/ENGINEER EMPTIED HAT. PATIENT DENIES ANY NEEDS. CALL LIGHT IN REACH.
--- NOTE | 2019-08-14 03:06 | NUR ---
PATIENT RATES PAIN AT AN 8/10. PATIENT GIVEN PRN PAIN MEDICATION PER ORDER. PATIENT COMPLAINS OF NAUSEA. ATTEMPTED TO GIVE PATIENT ZOFRAN. PATIENT REFUSED AND REQUESTED PHENEGRAN. PATIENT GIVEN PRN NAUSEA MEDICATION PER REQUEST AND ORDER. PATIENT UP TO USE THE RESTROOM INDEPENDENT. PATIENT WAS ABLE TO VOID. PATIENT IS NOW BACK IN BED RESTING. PATIENT DENIES ANY FURTHER NEEDS. CALL LIGHT IN REACH.
--- NOTE | 2019-08-14 05:02 | NUR ---
PATIENT RESTED WELL THROUGHOUT THE SHIFT. PATIENT IS ON A REGULAR DIET, TOLERATING IT OKAY AT TIMES. PATIENT REPORTS NAUSEA. PATIENT GIVEN PRN NAUSEA MEDICATION MULTIPLE TIMES PER ORDER. PATIENT IS ON RA. PATIENT IS INDEPENDENT IN THE ROOM. PATIENT HAS FLUID INFUSING IN RIGHT PORT PER ORDER. PATIENT RECEIVED PRN PAIN MEDICATION PER ORDER MULTIPLE TIMES. PATIENT IS AAOX3 AND USES CALL LIGHT APPROPRIATELY.
--- NOTE | 2019-08-14 05:44 | NUR ---
PATIENTS VITALS TAKEN AND RECORDED. INTAKE AND OUTPUT RECORDED. PATIENT RATES PAIN AT AN 8/10 IN HER ABD. PATIENT GIVEN PRN PAIN MEDICATION PER ORDER. PATIENT GIVEN SCHEDULED MEDICATION GIVNE PER ORDER. PATIENT DENIES ANY NAUSEA AT THIS TIME. NO FURTHER NEEDS NOTED. CALL LIGHT IN REACH.
--- NOTE | 2019-08-14 07:43 | NUR ---
RECIEVED REPORT FROM FORTUNATO ARTIS. PT RESTING IN BED COMFORTOABLY WITH NO NEEDS/CONCERNS AT THIS TIME. CALL LIGHT WITHIN REACH.
--- NOTE | 2019-08-14 09:41 | NUR ---
PT RESTING IN BED TALKING WITH A FRIEND THAT IS AT CHAIRSIDE. AM MEDICATIONS GIVEN AND ASSESSMENT COMPLETE. PT STATES THAT WHEN FRIEND LEAVES SHE WOULD LIKE TO TAKE A SHOWER AND BE GIVEN PAIN AND NAUSEA MEDICATION. PT STATES THAT HER PAIN IS IN HER UPPER ABDOMEN AND RATES IT A 6/10. REFILLED WATER CONTAINER. PT ATE 100% OF HER BREAKFAST; WHITE TOAST AND CREAM OF WHEAT. CALL LIGHT WITHIN REACH. NO ADDITIONAL NEEDS/CONCERNS AT THIS TIME.
--- NOTE | 2019-08-14 10:36 | NUR ---
PT JUST COMPLETED TAKING A SHOWER. PT STATES THAT HER PAIN IS 8/10 IN HER ABDOMEN AND BACK. PAIN AND NAUSEA MEDICATION ADMINISTERED. LUNCH ORDERED: 2 ORDERS OF MASHED POTATOES AND GRAVY, CHOCOLATE PUDDING, AND A SALT PACKET. PT RESTING IN BED WITH CALL LIGHT WITHIN REACH.
--- NOTE | 2019-08-14 11:20 | NUR ---
PT RESTING IN BED WATCHING [employer] ANATOMY ON LAPTOP. AFTERNOON MEDICATIONS GIVEN. PT STATES THAT HER PAIN HAS DECREASED TO A 5/10. CALL LIGHT WITHIN REACH. NO ADDITIONAL NEEDS/CONCERNS AT THIS TIME.
--- NOTE | 2019-08-14 13:38 | NUR ---
PT MOTHER JUST LEFT. ANSWERED CALL LIGHT. PT STATES THAT HER PAIN HAS INCREASED TO A 7/10 AND WOULD LIKE SOME PAIN MEDICATION. PT STATES THAT THE PAIN STARTED A WHILE AGO BUT DIDNT WANT TO ASK WHEN MOM WAS IN THE ROOM. ADMINISTERED 2MG DILAUDID. PT ATE ALL OF HER LUNCH 100%. CALL LIGHT WITHIN REACH. NO ADDITIONAL NEEDS/CONCERNS AT THIS TIME.
--- NOTE | 2019-08-14 14:56 | NUR ---
PT SITTING IN BED, DARKENED RM, WORKING ON HER COMPUTER. SHE MENTIONED THAT SHE IS FEELING BETTER TODAY, GAVE A BLESSING. WILL FOLLOW NEEDED
--- NOTE | 2019-08-14 14:56 | NUR ---
PT RESTING IN BED WATCHING [employer] ANATOMY. PT STATES THAT SHE IS HAVING REALLY BAD NAUSEA AND REQUESTING ZOFRAN. ZOFRAN ADMINISTERED. AFTERNOON ASSESSMENT COMPLETE. PT SIPPING ON WATER. NO ADDITIONAL NEEDS/CONCERNS AT THIS TIME. CALL LIGHT WITHIN REACH.
--- NOTE | 2019-08-14 16:57 | NUR ---
ASSUMED CARE OF PT. RECIEVED VERBAL REPORT FROM MARYAN BUCIO. PT RESTING IN BED. REQUESTED WARM BLANKET. DENIES FURTHER NEEDS OR CONCERNS AT THIS TIME. MOTHER AT BEDSIDE.
--- NOTE | 2019-08-14 18:14 | NUR ---
MEDICATED WITH PHENERGAN FOR C/O "STOMACH SPASM". PT SITTING IN BED WATCHING [employer] ON LAPTOP. CALL LIGHT WITHIN REACH.
--- NOTE | 2019-08-14 19:57 | NUR ---
RECEIVED REPORT FROM DAY SHIFT RN. PATIENT IS RESTING IN BED WATCHING TV ON HER LABTOP. PATIENT DENIES ANY NEEDS. CALL LIGHT IN [facility].
--- NOTE | 2019-08-14 20:21 | NUR ---
PATIENT ASSESMENT COMPLETED. PATIENT RATESE PAIN AT A 7/10 IN HER ABD AND DESCIBES THE PAIN "SPASMS". PATIENT GIVEN PRN PAIN MEDICATION. PATIENT ALSO COMPLAINS OF NAUSEA. PATIENT GIVEN PRN NAUSEA MEDICATION PER ORDER. PATIENT WOULD ALSO LIKE HER EVENING MEDICATIONS AT THIS TIME. PATIENT GIVEN SHCEDULED EVEING MEDICATIONS PER ORDER. PATIENT IS RESTING IN BED WATCHING TV ON HER LABTOP. PATIENTS VITALS TAKEN AND RECORDED. INTAKE AND OUPUT RECORDED. PATIENT PROVIDED WITH FRESH ICE WATER AND JUICE. PATIENT DENIES ANY FURTHER NEEDS. CALL LIGHT IN REACH.
--- NOTE | 2019-08-14 22:13 | NUR ---
PATIENT IS RESTING IN BED WATCHING TV ON HER TABLET. PATIENT RATES PAIN AT A 4/10. PATIENT DENIES THE NEED FOR PAIN MEDICATION AT THIS TIME. CALL MIRACLE MAGUIRE.
--- NOTE | 2019-08-15 00:59 | NUR ---
PATIENT IS RESTING IN BED WEARING SLEEP MASK. PATIENT APPEARS ASLEEP, RR 17. CALL LIGHT IN REACH.
--- NOTE | 2019-08-15 02:18 | NUR ---
PATIENT RATES PAIN AT A 6/10. PATIENT GIVEN PRN PAIN MEDICATION. PATIENT ALSO COMPLAINS OF NAUSEA. PATIENT GIVEN PRN NAUSEA MEDICATION PER ORDER. PATIENT DENIES ANY FURTHER NEEDS. CALL LIGHT IN REACH.
--- NOTE | 2019-08-15 04:18 | NUR ---
PATIENT IS RESTING IN BED WITH EYES CLOSED, RR 17. CALL LIGHT IN REACH.
--- NOTE | 2019-08-15 05:06 | NUR ---
PATIENT RESTED WELL THROUGHOUT THE SHIFT. PATIENT IS ON A REGULAR DIET, TOLERATING IT OKAY AT TIMES. PATIENT REPORTS NAUSEA. PATIENT GIVEN PRN NAUSEA MEDICATION MULTIPLE TIMES PER ORDER. PATIENT IS ON RA. PATIENT IS INDEPENDENT IN THE ROOM. PATIENTS RIGHT PORT IS NOW SL PER ORDER. PATIENT RECEIVED PRN PAIN MEDICATION PER ORDER MULTIPLE TIMES. PATIENT IS AAOX3 AND USES CALL LIGHT APPROPRIATELY.
--- NOTE | 2019-08-15 06:00 | NUR ---
PATIENTS MORNING MEDICATIONS GIVEN PER ORDER. PATIENT RATES PAIN AT A 6/10. PATIENT GIVEN PRN PAIN MEDICATION. PATIENT ALSO COMPLAINS OF NAUSEA. PATIENT GIVEN PRN NAUSEA MEDICATION PER ORDER. PATIENTS VITALS TAKEN AND RECORDED. PATIENTS INTAKE AND OUPUT RECORDED. NO FURTHEE NEEDS NOTED. CALL LIGHT IN REACH.
--- NOTE | 2019-08-15 08:09 | NUR ---
MORNING ASSESSMENT DONE. PATIENT RATED ABD PAIN 6/10, SITTING UP TO EAT TOAST, RECENT NAUSEA MEDS GIVEN. MORNING MEDICATIONS GIVEN WITH FOOD. PATIENT DENIES OTHER NEEDS AT THIS TIME. PATIENT DOES ENDORSE UNCERTANTITY ABOUT BEING READY TO GOING HOME TODAY.
--- NOTE | 2019-08-15 09:45 | NUR ---
PATIENT IN ROOM SITTING UP IN BED FINISHING HER BREAKFAST. FRESH ICE WATER GIVEN. PATIENT REFUSED SHOWER AT THIS TIME AN STATES THAT SHE MIGHT LATER TONIGHT. CALL BUTTON IN REACH. NO OTHER NEES AT THIS TIME.
--- NOTE | 2019-08-15 11:14 | NUR ---
PATIENT SITTING UP IN BED TO WATCH TV. PATIENT GIVEN PO DILAUDID AND CARAFATE. PATIENT ENDORSES SOME NAUSEA.
--- NOTE | 2019-08-15 11:23 | NUR ---
PATIENT UP TO AMBULATE IN HALLWAY.
--- NOTE | 2019-08-15 14:20 | NUR ---
PT SITTING IN DARKENED RM, ON HER COMPUTER. SHE SAID SHE SLEPT BETTER LAST NIGHT, AND IS LOOKING FORWARD TO TAKING A SHOWER. PIANO ACCOMPANIST EXPRESSED SOME FRUSTRATION AT PT'S SEEMING LACK OF MOTIVATION. WILL WORK TO GET PT UP AND WALKING. WILL FOLLOW NEEDED
--- NOTE | 2019-08-15 15:14 | NUR ---
PATIENT SITTING UP IN BED TO WATCH TV, SNACKING ON RAJNI CRACKERS, ENDORSES FEELING BETTER.
--- NOTE | 2019-08-15 17:40 | NUR ---
PATIENT SITTING UP IN BED DINNER FINISHED. PATIENT'S MOM IN ROOM. NO NEEDS AT THIS TIME. CALL BUTTON IN REACH.
--- NOTE | 2019-08-15 18:15 | NUR ---
PATIENT HAS ENDORSED FEELING BETTER TODAY. CONTINUES TO HAVE PO PAIN MEDICATION AND IV NAUSEA MEDICATIONS. RIGHT CHEST PORT IS HEPARIN LOCKED. PATIENT HAS BEEN UP TO AMBULATE TODAY, IS TOLERATING BLAND REGULAR/SOFT FOOD. POSSIBLE THAT PATIENT MAY DISCHARGE TO HOME WITH FAMILY TOMORROW.
--- NOTE | 2019-08-15 20:31 | NUR ---
PT UPSET OVER NOT HAVING TORADOL A PAIN MED RELIEF ANYMORE. DR PERRY NOTIFIED VIA PHONE, NEW ORDERS TO RESTART TORADOL OBTAINED. PT NOTIFIED. PT SHOWERED, SITTING IN BED WATCHING TV
--- NOTE | 2019-08-15 20:38 | NUR ---
MEDICATED WTIH PHENERGAN 12.5MG IV C/O FEELING NAUSEATED
--- NOTE | 2019-08-15 20:55 | NUR ---
ROUNDED CHARGE. PATIENT IS RESTING IN BED. WILLY RN PRESENT IN ROOM. PATIENT DENIES ANY COMMENTS, QUESTIIONS, OR CONCNERNS. NO NEEDS NOTED. CALL LIGHT IN REACH.
--- NOTE | 2019-08-15 21:01 | NUR ---
pt cooperative with assessment, c/o 6/10 back and l leg pain. medicated with Toradol 30mg IV. R portacath patent. In bed, watching tv. No further c/o feeling nauseated. Fluids and call light at bedside.
--- NOTE | 2019-08-16 00:09 | NUR ---
RESTING, NO FURTHER C/O PAIN OR N/V, CALL LIGHT AT BEDSIDE
--- NOTE | 2019-08-16 01:50 | NUR ---
resting, eyes closed, no resp distress, call light at bedside
--- NOTE | 2019-08-16 04:39 | NUR ---
Resting, eyes closed, has slept since 2229, Call light at bedside
--- NOTE | 2019-08-16 04:51 | NUR ---
Pt hasbeen sleeping most of this shift. R port-a-cath patent. Hep locked. Pt was medicated with Phenergan 12.5mg IV per c/o n/v, and with Toradol 30mg IV per c/o abd and back pain with good pain relief. Showered, Pt to be dc home today, states she feels better
--- NOTE | 2019-08-16 05:58 | NUR ---
Awake, up to br, voided large amounts of urine. Independent in room. c/o abd and back pain 05/23. Medicated with Toradol 30mg IV and Phenergan 12.5mg IV per c/o n/v. no vomiting noted. Tolerating fluids well. No c/o L leg pain. Fresh water given. Call light at bedside
--- NOTE | 2019-08-16 07:15 | NUR ---
REPORT RECEIVED BY RN. PATIENT SLEEPING IN BED WITH CALL LIGHT AT BEDSIDE.
--- NOTE | 2019-08-16 08:40 | NUR ---
PT REPORTING ABDOMINAL PAIN AND NAUSEA. PRN MEDICAITONS ADMINISTERED. PT IN ROOM WITH LIGHT OFF, GOOD BLOOD RETURN ON PORT. CALL LIGHT IN REACH. DENIES FURTHER NEEDS.
--- NOTE | 2019-08-16 09:22 | NUR ---
MORNING CARE DONE WITH PT. PT WASHES FACE AND BRUSHES TEETH. VITALS TAKEN. I/O RECORDED. PT DECLINES LINEN CHANGE AT THIS TIME PREFERING TO REST. PT CONTINUES TO REPORT NAUSEA. BP NOTED TO BE 88/42. RETAKEN WITH SIMILAR RESULTS. PTS RN NOTIFIED. APPLE JUICE PROVIDED PER PT REQUEST. WARM BLANKETS PROVIDED. NO ADDITIONAL REQUESTS OR COMPLAINTS AT THIS TIME. CALL LIGHT WITHIN REACH. BED RAILS UP.
--- NOTE | 2019-08-16 09:30 | NUR ---
PATIENT BLOOD PRESSURE OF 88/52, PULSE OF 89. DENIES LIGHTHEADEDNESS OR DIZZINESS. PATIENT ABLE TO AMBULATE INDEPENDENTLY TO TOILET WITH STEADY GAIT. BLOOD PRESSURE OF 94/55, PULSE OF 95 AFTER RETURNING TO BED. THIRD BLOOD PRESSURE TAKEN TEN MINUTES LATER OF 100 SYSTOLICALLY. PATIENT REPORTS NAUSEA, PRN MEDICATION GIVEN. PORT FLUSHES AND DRAWS BLOOD PER PROTOCOL. MEDICATION ADMINISTERED, HEP LOCKED. VISITORS IN ROOM WITH PATIENT. CRACKERS PROVIDED, CALL LIGHT WITHIN REACH.
--- NOTE | 2019-08-16 10:00 | NUR ---
SPOKE WITH PATIENT IN ROOM. PATIENT STANDING IN ROOM HOLDING A FRIENDS BABY, VISITING WITH HER FRIENDS. DISCUSSED WITH PATIENT MD FEELS SHE IS READY TO DISCHARGE. 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 PATIENT STATES SHE "THREW UP MY BREAKFAST". ASKED IF NURSES ARE AWARE AND IF SHE SHOWED THEM SO THEY NEW WHAT TO CHART ON WHAT SHE THREW UP, SHE STATES "I TOLD THEM, NO I DON'T SAVE ANYTHING". DISCUSSED STAFF REALLY NEEDS TO CHART THESE THINGS SO MD IS AWARE OF WHAT IS SEEN SO HE KNOWS HOW TO TREAT HER. DISCUSSED THAT SHE MAY BE LEFT WITH SOME UNCOVERED COSTS ON HER BILLING WITH OBSERVATION. PATIENT STATES "I DON'T PAY, I HAVE MICHAEL AT THIS HOSPITAL, I CAN STAY LONG I NEED TOO". EXPLAINED THAT SHE STILL NEEDS MEDICAL NECESSITY TO BE MET AND DR CROCKER FEELS SHE CAN RETURN TO OUTPATIENT TREATMENT PLAN. SHE SHE STATES "I STILL NEED THE IV MEDICATIONS. IF YOU SEE ME SMILING AND ACTING HAPPY ITS BECAUSE I HAD A SHOT AND FOR A FEW HOURS I FEEL GOOD, BUT THEN I FEEL NAUSEATED AGAIN". DISCUSSED THAT I WILL LET DR PERRY KNOW ABOUT HER VOMITING. PATIENT STATES "IF HE SENDS ME HOME I'LL JUST COME BACK TO THE ED FOR A SHOT AGAIN AND START THE PROCESS ALL OVER". EXPLAINED THAT OF COURSE IF SHE NEEDS TO RETURN TO ED, SHE IS ALWAYS ABLE TO DO SO. PATIENT DENIES QUESTIONS. STARTS VISITING WITH HER FRIEND AGAIN. DR PERRY UPDATED.
[2019-08-16] MEDS ORDERED: PROMETHAZI25 MG/1 M2 INJ (10:50)
[2019-08-16] MEDS ORDERED: ALLERGY SYRING1 EAC2 INJ (10:50)
[2019-08-16] MEDS ORDERED: PROMETHAZI25 MG/1 M2 IM (10:54)
[2019-08-16] MEDS ORDERED: ALLERGY SYRING1 EAC2 IM (10:54)
--- NOTE | 2019-08-16 11:31 | NUR ---
PATIENT MEDICATION GIVEN. 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 NO FURTHER NEEDS AT THIS TIME, CALL LIGHT WITHIN REACH.
--- NOTE | 2019-08-16 12:40 | NUR ---
VISITOR IN ROOM WITH PATIENT. PRN PAIN MEDICATION AND ANTIEMETIC GIVEN. PORT FLUSHES AND RETURNS BLOOD PER PROTOCOL. PATIENT DENIES ANY NEEDS AT THIS TIME, CALL LIGHT WITHIN REACH.
--- NOTE | 2019-08-16 13:32 | NUR ---
PT IN RM VISITING WITH HER MOTHER ON LUNCH BREAK. PT TO DC TODAY, WILL CONTINUE TO FOLLOW NEEDED
--- NOTE | 2019-08-16 16:25 | NUR ---
PATIENT LAYING IN BED WATCHING TV. MEDICATIONS ADMINISTERED. PATIENT DENIES ANY NAUSEA AND A PAIN OF 5/10, WHICH IS TOLERABLE. NO FURTHER NEEDS AT THIS TIME, CALL LIGHT WITHIN REACH.
--- NOTE | 2019-08-16 17:46 | NUR ---
PATIENTS PAIN AND NAUSEA CONTINUING TO BE MANAGED WITH PRN MEDICATION. PATIENT IS ONE PERSON SBA. SHE HAS HAD A POOR APPETITE AND VOMITED EMESIS AFTER LUNCH. VOIDING WELL AND LAST BM WAS YESTERDAY. PATIENT REQUESTED MIRALAX, WHICH WAS GIVEN. PATIENT SPENT MAJORITY OF DAY LAYING IN BED WATCHING TV.
--- NOTE | 2019-08-16 18:44 | NUR ---
PATIENT SAID SHE DID A WASH UP THIS MORNING. SHE DID PLAN ON TAKING A SHOWER AROUND 1830 BUT OTHER THINGS CAME UP AND SHE CHANGED HER MIND. PATIENT INDEPENDENT.
--- NOTE | 2019-08-16 21:34 | NUR ---
MEDICATED WITH DILAUDID 2MG PO AND ZOFRAN 4MG IV, C/O ABD AND BACK PAIN AND FEELING NAUSEATED. WATCHING TV, COOP WITH ASSESSMENT. R PORT INTACT/PATENT. INDEPENDENT INROOM, TOLERATING LARGE AMOUNTS OF FLUIDS. CALL LIGHT AT BEDSIDE
--- NOTE | 2019-08-16 23:16 | NUR ---
RESTING, EYE SCLOSED, NO RESP DISTRESS, NO FURTHER C/O PAIN OR N/V. NO NAUSEA EMESIS NOTED THIS SHIFT. PT INDEPENDENT IN ROOM. CALL LIGHT AT BEDSIDE
--- NOTE | 2019-08-17 01:12 | NUR ---
up to br, voided, back to bed, c/o feeling nauseated, no emesis noted. c/o abd pain 04/23 medicated with toradol 30mg IV
--- NOTE | 2019-08-17 02:32 | NUR ---
RESTING, EYES CLOSED, NO FURTHER C/O PAIN OR N/V
--- NOTE | 2019-08-17 05:50 | NUR ---
Pt up to br, voided, back to bed, c/o abd and back pain. Medicated with Dilaudid 2mg po /10 pain. Zofran 4mg IV per c/o feeling nauseated, no emesis noted this shift. R portacath patent.
--- NOTE | 2019-08-17 05:52 | NUR ---
Pt currently awake, watching Netflix in computer. Pt voiding QS yellow urine, Tolerating fluids very well. Independent in room. Has been medicated 2x with Phenergan 12.5mg and Zofran 4mg IV per c/o feeling nauseated, effective, no emesis or dry heaving noted this shift. Medicated X2 with Dilaudid 2mg po and Toradol 30mg IV per c/o back and abd pain with good pain control. Continues to have L leg sensitivity to touch, declilnes to have assessments done on L foot due to extreme pain with touching, no c/o this shift.
--- NOTE | 2019-08-17 07:45 | NUR ---
PATIENT REQUESTS PRN PAIN AND ANTIEMETIC MEDICATION. PORT FLUSHES WELL, WITH BLOOD RETURN PER PROTOCOL. IV MEDICATIONS GIVEN. PATIENT STATES SHE SLEPT WELL. WATER REFRESHED, NO FURTHER NEEDS AT THIS TIME, CALL LIGHT WITHIN REACH.
--- NOTE | 2019-08-17 08:34 | NUR ---
PATIENT REFUSED SHOWER TODAY IF SHE GOES HOME TODAY. SHE SAID SHE WOULD LIKE TO TAKE HER SHOWER AT HOME.
--- NOTE | 2019-08-17 09:16 | NUR ---
PATIENT VOMITED 200 MLS OF YELLOW EMESIS. 100% OF BREAKFAST EATEN. WARM PACK PROVIDED FOR RELIEF. AM MEDICATIONS ADMINISTERED. PORT HEPARIN LOCKED PER PROTOCOL. WILL CONTINUE TO MONITOR.
--- NOTE | 2019-08-17 10:33 | NUR ---
PATIENT REPORTS NAUSEA. 500 MLS OF YELLOW EMESIS. PRN ANTIEMETICS GIVEN.
--- NOTE | 2019-08-17 11:48 | NUR ---
DISCHARGE INSTRUCTIONS GIVEN, ALL QUESTIONS ANSWERED. PATIENT VERBALIZED UNDERSTANDING OF FOLLOW UP APPOINTMENT. PORT HEPARIN LOCKED AND DEACCESSED PER PROTOCOL. ALL PERSONAL BELONGINGS COLLECTED. PATIENT AMBULATED OUT OF HOSPITAL INDEPENDENTLY WITH FAMILY.
--- NOTE | 2019-08-17 12:39 | NUR ---
MET WITH PT SHE WAS DC'D. SHE IS EXCITED TO GO, LOOKS LIKE SHE IS FEELING MUCH BETTER. EXTENDED A BLESSING, WILL FOLLOW NEEDED
== END 2019-08-17 11:38 | disposition home or self-care (01) ==
LOC: ED 15:10 → MS 15:12
PROVIDERS: ADMIT Internal Medicine
DX: R10.11 Right upper quadrant pain (principal); R11.2 Nausea with vomiting, unspecified; K59.09 Other constipation; G90.522 Complex regional pain syndrome I of left lower limb; F39 Unspecified mood [affective] disorder; G89.4 Chronic pain syndrome; Z88.5 Allergy status to narcotic agent; Z79.899 Other long term (current) drug therapy; Z79.891 Long term (current) use of opiate analgesic
CPT/HCPCS: 96361; 96372; 96374; 96375; 96376; 99284-25; G0378; J0780; J1170; J1650; J1885; J2405; J2550; J2997; J7030; J7120

== ENCOUNTER 2019-08-27 05:45 | Day surgery (SDC) | payer MEDICARE, OTHER ==
[~2019-08-27] VITALS: Ht 162.6 cm; Wt 93.9 kg
--- NOTE | ~2019-08-27 | OR ---
[facility] [address] [place] [id number] Draft DATE OF OPERATION: 08/27/2019 SURGEON: Kamlesh Spence MD PREOPERATIVE DIAGNOSIS: Interstitial cystitis. POSTOPERATIVE DIAGNOSIS: Interstitial cystitis. NAME OF PROCEDURE: Diagnostic cystoscopy with hydrodistention. ANESTHESIA: General. ESTIMATED BLOOD LOSS: Minimal. COMPLICATIONS: None. SPECIMENS: None. DRAINS: None. INDICATIONS FOR PROCEDURE: Brody is a very pleasant 29-year-old female, who is well known to me. 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 She has been off the ketamine now for at least six months and is doing significantly better from a bladder standpoint. She continues to get q.3 months cystoscopy with hydrodistentions for management of her chronic severe interstitial cystitis. She presents today to undergo another routine cystoscopy with hydrodistention. OPERATIVE FINDINGS: On cystoscopy, there was no evidence of any suspicious masses, lesions, or stones within the bladder. Bilateral ureteral orifices are in their normal anatomic location. Her bladder wall continues to look significantly better than it has in the past. She has PATIENT NAME: BRODY LINCOLN OPERATIVE REPORT DATE OF : 89 REPORT #: [id number] PHYSICIAN: KAMLESH SPENCE MD PCP: MARCELINO PERRY MD REPORT IS CONFIDENTIAL AND NOT TO BE RELEASED WITHOUT AUTHORIZATION [facility] [address], [place] [address] Draft the bladder wall contracture that runs in a transverse direction across the posterior wall of the bladder. The patient's bladder was distended for a total of 9 minutes today and held a total of 450 mL. There was no significant bleeding after release of the distention seen on repeat cystoscopy. DESCRIPTION OF PROCEDURE: After informed consent was obtained, the patient was taken back to the operating room. [facility] table, where general anesthesia was induced. She was placed in the dorsal lithotomy position and genitalia prepped and draped in standard sterile fashion. Using a 30-degree lens on a 22.5-Luxembourgish introducer, rigid cystoscope was inserted through urethra into her bladder under direct visualization. Mccain-endoscopic views of bladder were then obtained. Please see above findings. The patient's bladder was completely emptied and then filled again and distended for a total of 9 minutes. Please see above findings. The patient's bladder held a total of 450 mL of fluid volume. After the patient's bladder was then drained, a repeat cystoscopy was performed, which revealed no evidence of any significant hemorrhage from the bladder wall mucosa. The patient's bladder was then drained again and the procedure was then terminated. The patient tolerated the procedure well without any complication. She will now be transferred to the postanesthesia care unit in stable condition. DISPOSITION: I contacted the patient's mother and answered all of her questions regarding today's procedure. Brody will be sent home today with Percocet 10/325 dispense #30 as needed for pain along with promethazine 12.5 mg p.o. q.6 hours p.r.n. nausea and vomiting. She was also given a prescription for Cipro 500 mg p.o. b.i.d. for a total of one week. She will be scheduled to return to clinic in 6 weeks for her postoperative evaluation. MD JASWANT Michaels/RICHIE /[id number] Copies: PATIENT NAME: BRODY LINCOLN OPERATIVE REPORT DATE OF : 89 REPORT #: [id number] PHYSICIAN: KAMLESH SPENCE MD PCP: MARCELINO PERRY MD REPORT IS CONFIDENTIAL AND NOT TO BE RELEASED WITHOUT AUTHORIZATION [address] [place] [address] Draft ~ PATIENT NAME: BRODY LINCOLN OPERATIVE REPORT DATE OF : [birth year] REPORT #: [id number] PHYSICIAN: KAMLESH SPENCE MD PCP: MARCELINO PERRY MD REPORT IS CONFIDENTIAL AND NOT TO BE RELEASED WITHOUT AUTHORIZATION
[~2019-08-27 05:45] MED LIST changes: +ALLERGY SYRING1 EAC2 IM; +ALLERGY SYRING1 EAC2 INJ; +CLONIDINE HCL0.1 MG PO; +CLONIDINE HCL0.2 MG PO; +PROMETHAZI25 MG/1 M2 IM; +PROMETHAZI25 MG/1 M2 INJ
--- NOTE | 2019-08-27 06:51 | NUR ---
PT DECLINES TO HAVE SOCK OR SCD ON LEFT FOOT DUE TO CHRONIC PAIN.
--- NOTE | 2019-08-27 08:20 | NUR ---
08/27/19 0820 Kay Dean 0813 PT ARRIVED TO PACU ON 10L VIA MASK WITH ORAL AIRWAY IN PLACE. PT NONAROUSABLE. RESP EVEN AND UNLABORED. 0819 PT WOKE TO GRABBED AT AIRWAY, ORAL AIRWAY REMOVED AND O2 MASK REMOVED. PT REORIENTED TO PACU, PT BACK TO SLEEP.
--- NOTE | 2019-08-27 09:10 | NUR ---
PT ARRIVES TO DS RM 5 FROM PACU AWAKE AND ALERT. PT GRIMACING WITH PAIN ON ENTRANCE. PT RATES PAIN 8/10 IN BLADDER. PT HAS 2L O2 VIA NC IN PLACE, SATS 99%. RESP EVEN AND UNLABORED. PT PROVIDED ICED WATER, JUICE AND CRACKERS IN ANTICIPATION OF ORAL PAIN MEDICATION. PT REQUESTS ORAL PROMETHAZINE WITH PAIN MEDICATION, VERBAL ORDER OBTAINED FROM DR. SPENCE. SEE EMAR. CALL LIGHT WITHIN REACH, LIGHTS DIMMED.
--- NOTE | 2019-08-27 09:30 | NUR ---
PT HAS URGE TO VOID, PROVIDED BED ARELLANO. UNABLE TO GO AT THIS TIME. PT WOULD LIKE TO KEEP BED ARELLANO AT SIDE JUST IN CASE.
--- NOTE | 2019-08-27 09:50 | NUR ---
MANAGER OF CASE WAS BUSY FINISHING GETTING PT PREPPED FOR SURGERY. HAD BRIEF, PLEASANT VISIT, EXTENDED A BLESSING. WILL FOLLOW NEEDED
--- NOTE | 2019-08-27 10:03 | NUR ---
PT PROVIDED WARM BLANKET FOR ABD, DENIES ANY NAUSEA AT THIS TIME. PT STATES PAIN "A LITTLE BETTER" AND RATES 7/10 IN BLADDER/OLGA AREA. O2 REMOVED, ABLE TO MAINTAIN SATS 97% ON RA WITH CONT PULSE OXIMETER IN PLACE. CALL LIGHT REMAINS IN PLACE.
--- NOTE | 2019-08-27 10:13 | NUR ---
PT ABLE TO VOID QS IN BED ARELLANO. PT STATES PAIN WITH URINATION "BUT NOT BAD USUAL." BED ARELLANO CLEANED AND PLACED NEXT TO PT SIDE IN BED PER REQUEST.
--- NOTE | 2019-08-27 11:02 | NUR ---
PT RESTING WITH EYES CLOSED ON ENTRANCE TO RM. PT AWAKES TO VERBAL STIMULI AND DENIES NAUSEA AND RATES PAIN 6/10 IN BLADDER/OLGA AREA. PT ABLE TO VOID QS WITH BED ARELLANO. CALL LIGHT REMAINS AT SIDE.
--- NOTE | 2019-08-27 12:36 | NUR ---
[id number]: PT UP TO BATHROOM WITH RN ASSIST. STEADY GAIT, ABLE TO VOID 200 MLS YELLOW-PINK TINGED URINE. PT BACK TO ROOM TO GET DRESSED, CALLED FATHER FOR RIDE HOME. IMPLANTED PORT DEACCESSED WNL, HEPARIN FLUSHED; SEE VASCULAR ACCESS NOTES. 1140: PT FATHER ARRIVES TO DS UNIT. DC INSTRUCTIONS GIVEN IN PRESENCE OF PT AND FATHER, ALL QUESTIONS ADDRESSED. PT DECLINES WC RIDE OUT AND WOULD LIKE TO AMBULATE TO CAR AT MAIN ENTRANCE OF HOSPITAL WITH RN. PT DC'S HOME WITH PAIN PRESCRIPTION IN HAND.
== END 2019-08-27 11:45 | disposition home or self-care (01) ==
LOC: DS 05:45
PROVIDERS: Urology
PROC: 0T7B8ZZ Dilation of Bladder, Via Natural or Artificial Opening Endoscopic (ICD-10-PCS; principal; 2019-08-27 06:45)
DX: N30.10 Interstitial cystitis (chronic) without hematuria (principal); F32.9 Major depressive disorder, single episode, unspecified; F41.9 Anxiety disorder, unspecified; Z88.5 Allergy status to narcotic agent; Z88.8 Allergy status to other drugs, medicaments and biological substances; Z79.899 Other long term (current) drug therapy
CPT/HCPCS: J0330; J0696; J1100; J1885; J2250; J2405; J2704; J2765; J3010; J7120

== ENCOUNTER 2020-03-05 10:50 | Emergency (ER) | payer MEDICARE, OTHER ==
[~2020-03-05] VITALS: Ht 165.1 cm; Wt 88.5 kg
--- OUTSIDE RECORDS SUMMARY | ~2020-03-05 | XMS | Clinical Summary ---
Demographics + + + | Address | [address] | | | [place] [address] | + + + | Home Phone | | + + + | Preferred Language | Unknown | + + + | Marital Status | Single | + + + | Hindu Affiliation | 1073 | + + + | Race | Unknown | + + + | Ethnic Group | Unknown | + + + Author + + + | Author | [facility] | | | and [place] | + + + | Organization | [facility] | | | and [place] | [...] | [place] | | | | | [address] | | + + + + + | Bryant Farah | ECON | Unknown | | + + + + + Care Team Providers + +------+ + | Care Lithographer Apprentice Name | Role | Phone | [...] +--------+ +---------+--------+ | MEDICARE | MEDICA | [id number] | 07/15/20 | [phone] | | Medica | | | RE | | 15-Pre | 5 | | re | | | PART A | | sent | | | | | | AND B | | | | | | + +--------+ +--------+ +---------+--------+ | MEDICAID [place] | MEDICA | [id number] | | [phone] | | Medica | [...] | 1990 | [phone] | [place] [address] | | | evita | | | 6 (Home) | | + +--------+ +--------+ + +"
--- OUTSIDE RECORDS SUMMARY | ~2020-03-05 | XMS | Encounter Summary ---
Demographics + + + | Address | [address] | | | [place] [address] | + + + | Home Phone | | + + + | Preferred Language | Unknown | + + + | Marital Status | Single | + + + | Jehovah'S Witness Affiliation | 1073 | + + + | Race | Unknown | + + + | Ethnic Group | Unknown | + + + Author + + + | Author | [facility] | | | and [place] | + + + | Organization | [facility] | | | and [place] [...] [place] | | | | | [phone] | | + + + + + | Bryant Farah | ECON | Unknown | | + + + + + Care Team Providers + +------+ + | Care Field Organizer Name | Role | Phone | + [...] Provider Unknown | | | | | [place], [place] | [phone] | | | | | [phone] | | | | | | [phone] | | | +--------+ + + + [...]
--- OUTSIDE RECORDS SUMMARY | ~2020-03-05 | XMS | Clinical Summary ---
Demographics + + + | Address | [address] | | | [place] [address] | + + + | Home Phone | | + + + | Preferred Language | Unknown | + + + | Marital Status | Single | + + + | Latter Day Affiliation | 1013 | + + + | Race | Unknown | + + + | Ethnic Group | Unknown | + + + Author + + + | Author | [facility] (Historical as of | | | 06-30-19) | + + + | Organization | [facility] (Historical as of | | | 06-30-19) | + + + | Address | Unknown | + + + | Phone | Unavailable | + + + Support + + +---------+ + | Name | Relationship | Address | Phone | + + +---------+ + | Hummell,Patricia | ECON | Unknown | | + + +---------+ + | Bryant Farah | ECON | Unknown | | + + +---------+ + | Bro Keller | ECON | Unknown | | + + +---------+ + Care Team Providers + +------+ + | Care Atomic Spectroscopist Name | Role | Phone | + +------+ + | Allegra Chaudhary PA-C | PP | | + +------+ + Allergies + + + + + + | Active Allergy | Reactions | Severity | Noted | Comments | | | | | Date | | + + + + + + | Morphine | Anaphylaxis | High | / | | | | | | 13 | | + + + + + + Current Medications + + +--------+---------+------+------+-------+ | Prescription | Sig. | Disp. | Refills | Star | End | Statu | | | | | | t | Date | s | | | | | | Date | | | + + +--------+---------+------+------+-------+ | LORazepam (ATIVAN) | Take 2 mg by mouth | | | 03/0 | | Activ | | 2 MG tablet | every 6 (six) hours | | | 05/03 | | e | | | as needed. | | | 13 | | | + + +--------+---------+------+------+-------+ | Melatonin 5 MG | Take by mouth. | | | | | Activ | | TABS | | | | | | e | + + +--------+---------+------+------+-------+ | ibuprofen | Take 200 mg by mouth | | | | | Activ | | (ADVIL,MOTRIN) 200 | every 6 (six) hours | | | | | e | | MG tablet | as needed. | | | | | | + + +--------+---------+------+------+-------+ | pantoprazole | Take 40 mg by mouth | | | | | Activ | | (PROTONIX) 40 MG | every morning before | | | | | e | | tablet | breakfast. | | | | | | + + +--------+---------+------+------+-------+ | ketorolac | Inject 1 mL into the | 1 mL | 0 | 08/0 | | Activ | | (TORADOL) 15 MG/ML | vein once as needed | | | 9/20 | | e | | injection | for Pain. | | | 16 | | | + + +--------+---------+------+------+-------+ Active Problems + + + | Problem | Noted Date | + + + | Chronic pain syndrome | 03/07/2013 | + + + + + | Last Assessment & Plan: This patient first was injured in | | 2001 fracturing her left ankle on trampoline. She ultimately | | underwent 8 total surgeries on her left lower leg and foot. In | | 2006 the patient underwent a neuroma excision and developed | | symptoms of complex regional pain syndrome which have persisted | | ever since. She has undergone extensive therapy at [facility] | | [facility] at pain clinics in [place] as well and | | [place], [place]. She has had sympathetic nerve blocks with no | | benefit. She also has been on multiple medications. The pain | | medications do help her function on a daily basis but certainly | | do not completely control her pain. She currently is taking | | approximately 200 mg morphine equivalence per day in the form of | | oxycodone and hydrocodone. This is not adequately controlling her | | pain. The patient also underwent a trial of dorsal column | | stimulation without significant benefit. She is also undergoing | | hyperbaric oxygen treatment which did somewhat improve the | | circulation in her left lower leg but did not affect her pain at | | all. She currently is not having significant problems related to | | ischemia but if she were to develop those she may be a candidate | | for further hyperbaric treatments. She presents for evaluation of | | other possible treatments for her pain. The patient has done | | extensive research on this problem as well. I had an extensive | | discussion with the patient regarding possible treatments. | | Although I generally don't like to consider intrathecal pain | | medications on a patient this young, she has exhausted nearly all | | other treatments with significant chance of benefit. She has | | reviewed DVD imprinting materials on this type of therapy. She is | | discussed at length with her parents who were present at today's | | visit. After considering all options the patient is interested | | in proceeding with a trial of intrathecal pain medications for | | control of her chronic intractable pain. We will therefore | | schedule the patient for a trial of intrathecal pain medications. | | If this trial is successful in giving her significant relief of | | her pain then she would be a candidate for implantation of an | | intrathecal pain medication delivery system. | + + + + + | Complex regional pain syndrome of left lower extremity | 01/31/2013 | + + + + + | Last Assessment & Plan: Please see discussion under chronic | | pain syndrome. | + + Family History + + +------+ + | Medical History | Relation | Name | Comments | + + +------+ + | Hypertension | Father | | | + + +------+ + | Hypertension | Mother | | | + + +------+ + | Cancer | Other | | | + + +------+ + | Diabetes type II | Other | | | + + [...] + +---------+ + | Alcohol Use | Drinks/We | oz/Week | Comments | | | ek | | | + + +---------+ + | Yes | | | occassionally | + + +---------+ + + + + | Sex Assigned at | Date Recorded | | | | + + + | Not on file | | + + + Last Filed Vital Signs + + + + | Vital Sign | Reading | Time Taken | + + + + | Blood Pressure | 122/68 | 06/22/2016 8:36 PM PDT | + + + + | Pulse | 72 | 06/22/2016 8:36 PM PDT | + + + + | Temperature | 36.6 C (97.9 F) | 06/22/2016 5:45 PM PDT | + + + + | Respiratory Rate | 16 | 06/22/2016 8:36 PM PDT | + + + + | Oxygen Saturation | 99% | 06/22/2016 8:36 PM PDT | + + + + | Inhaled Oxygen | - | - | | Concentration | | | + + + + | Weight | 69.3 kg (152 lb 12.5 | 06/22/2016 5:45 PM PDT | | | oz) | | + + + + | Height | 165.1 cm (5' 5") | 03/20/2013 10:11 AM PDT | + + + + | Body Mass Index | 25.42 | 06/22/2016 5:45 PM PDT | + + + + [...] filefrom Last 3 Months Insurance + +--------+ +------+-------+ + | Payer | Benefi | Subscriber | Type | Phone | Address | | | t Plan | ID | | | | | | / | | | | | | | Group | | | | | + +--------+ +------+-------+ + | MEDICARE | MEDICA | [id number] | | | [address] | | | RE | | | | [place] [phone] | | | IP-OP | | | | | + +--------+ +------+-------+ + | PREMERA | PREMER | [id number] | | | [address] [address] | | | A BLUE | 3 | | | [place], [place] | | | CARD | | | | [phone] | + +--------+ +------+-------+ + | [place] | [place] | [id number] | | | [address] | | | CARE | | | | [place] | | | [place] | | | | [phone] | + +--------+ +------+-------+ + + +--------+ +--------+ + + | Guarantor Name | Accoun | Relation to | Date | Phone | Billing Address | | | t Type | Patient | of | | | | | | | | | | + +--------+ +--------+ + + | BRODY FARAH | Person | Self | [birth year] | Home: | [address] | | | al/Fam | | 1989 | [phone] [place], [place] | | | evita | | | [phone] | [phone] | + +--------+ +--------+ + +
--- OUTSIDE RECORDS SUMMARY | ~2020-03-05 | XMS | Encounter Summary ---
Demographics + + + | Address | [address] | | | [place] [address] | + + + | Home Phone | | + + + | Preferred Language | Unknown | + + + | Marital Status | Single | + + + | Restoration Affiliation | 1073 | + + + | Race | Unknown | + + + | Ethnic Group | Unknown | + + + Author + + + | Author | [facility] | | | and [place] | + + + | Organization | [facility] | | | and [place] | [...] [place] | | | | | [address] | | + + + + + | Bryant Farah | ECON | Unknown | | + + + + + Care Team Providers + +------+ + | Care Bindery Cutter Operator Name | Role | Phone | + +------+ + PCP | Unavailable | + +------+ + Encounter Details +--------+ + + + + | Date | Type | Department | Care Team | Description | +--------+ + + + + | 03/20/ | Hospital | [facility] | Ulices Scott, | 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 T his also failed to [...] stable condition. She will follow-up with her [facility] physician for continued medical management. She [...] 03/22/131929 Date of Service: 03/22/131920 Status: Signed Network Security Administrator: Ava Carolina RN (Registered Nurse) Patient tolerated [...] 03/22/131854 Date of Service: 03/22/131854 Status: Signed Network Security Administrator: Ava Carolina RN (Registered Nurse) Discharge teaching [...] 03/22/13656 Date of Service: 03/22/13651 Status: Signed Network Security Administrator: Ulices Scott MD (Physician) [facility] Service: Interventional Pain Management Pre-Operative History [...] JUSTIN Ospina at 03/21/13 1032 Author: JUSTIN Opsina Service: (none) Author Type: Band Director Filed: 03/21/13 1036 Date of Service: 03/21/13 103 Status: Addendum Network Security Administrator: JUSTIN Ospina (Band Director) Related Notes: Original Note by JUSTIN Ospina (Band Director) filed at 03/21/13 1 036 Met w/22yo F Pt who lives w/parents in [place], [place]. Pt lives in two story house [...] will transport home. Pt has info for [employer]. lices Brock MD - 03/21/2013 7:27 AM PDT Progress Notes by Ulices Scott MD at 03/21/13726 Author: Ulices Scott MD Service: Interventional Pain Management Author Type: Physic deya Filed: 03/21/1335 Date of Service: 03/21/13726 Status: Signed Network Security Administrator: Ulices Scott MD (Physician) [facility] Service: Interventional Pain Management Pre-Operative History [...] Date of Service: 03/21/13 0640 Status: Signed Network Security Administrator: Darlin Orlando, RN (Registered Nurse) Pt had [...]
--- OUTSIDE RECORDS SUMMARY | ~2020-03-05 | XMS | Encounter Summary ---
Demographics + + + | Address | [address] | | | [place] [address] | + + + | Home Phone | | + + + | Preferred Language | Unknown | + + + | Marital Status | Single | + + + | Anabaptist Affiliation | 1073 | + + + | Race | Unknown | + + + | Ethnic Group | Unknown | + + + Author + + + | Author | [facility] | | | and [place] | + + + | Organization | [facility] | | | and [...] [place] | | | | | [address] | | + + + + + | Bryant Farah | ECON | Unknown | | + + + + + Care Team Providers + +------+ + | Care Ncqa Specialist Name | Role | Phone | + +------+ + PCP | Unavailable | + +------+ + Encounter Details +--------+ + + + + | Date | Type | Department | Care Team | Description | +--------+ + + + + | 06/22/ | Emergency | [facility] | Chung Portillo | Nondiabetic | | 2016 | | MEDICAL CENTER | [address] | gastroparesis | | | | EMERGENCY CENTER | [address] | | | | | [address] | [place], [place] | | | | | [place], [place] | [address] | | | | | [address] | [phone] | | | | | [phone] | | | +--------+ + + + [...] EXTERNAL | | | | performed at [facility];[address] | K/uL | LAB | | | | [address];[place] | | | | | | [address] | | | | + + + + + + | Red Blood | 4.46Comment: Testing | 3.70 - 5.10 | EXTERNAL | | | Cells | performed at [facility];888 | M/uL | LAB | | | Counted | [address];[place] | | | | | | [address] | | | | + + + + + + | Hemoglobin | 13.9Comment: Testing | 11.3 - 15.5 | EXTERNAL | | | | performed at [facility];888 | g/dL | LAB | | | | [address];[place] | | | | | | [address] | | | | + + + + + + | Hematocrit, | 41.0Comment: Testing | 34.0 - 46.0 % | EXTERNAL | | | POC | performed at [facility];[address] | | LAB | | | | [address];[place] | | | | | | [address] | | | | + + + + + + | MCV | 91.9Comment: Testing | 80.0 - 100.0 fl | EXTERNAL | | | | performed at [facility];[address] | | LAB | | | | [address];[place] | | | | | | [address] | | | | + + + + + + | MCH | 31.1Comment: Testing | 27.0 - 34.0 pg | EXTERNAL | | | | performed at [facility];[address] | | LAB | | | | [address];[place] | | | | | | [address] | | | | + + + + + + | MCHC | 33.9Comment: Testing | 32.0 - 35.5 | EXTERNAL | | | | performed at [facility];888 | g/dL | LAB | | | | [address];[place] | | | | | | [address] | | | | + + + + + + | RDW-CV | 40.3Comment: Testing | 37 - 53 fl | EXTERNAL | | | | performed at [facility];[address] | | LAB | | | | [address];[place] | | | | | | [address] | | | | + + + + + + | Platelet | 203Comment: Testing | 150 - 400 K/uL | EXTERNAL | | | Count | performed at [facility];888 | | LAB | | | Plasma | [address];[place] | | | | | | [address] | | | | + + + + + + | MPV | 8.3Comment: Testing | fl | EXTERNAL | | | | performed at [facility];[address] | | LAB | | | | [address];[place] | | | | | | [address] | | | | + + + + + + | Differentia | AUTOMATEDComment: | | EXTERNAL | | | l Type | Testing performed at | | LAB | | | | [facility];[address];[place] [address] | | | | + + + + + + | % Segmented | 65.86Comment: Testing | % | EXTERNAL | | | | performed at [facility];[address] | | LAB | | | Neutrophils | [address];[place] | | | | | | [address] | | | | + + + + + + | % | 25.52Comment: Testing | % | EXTERNAL | | | Lymphocytes | performed at [facility];[address] | | LAB | | | | [address];[place] | | | | | | [address] | | | | + + + + + + | % Monocytes | 6.38Comment: Testing | % | EXTERNAL | | | | performed at [facility];[address] | | LAB | | | | [address];[place] | | | | | | [address] | | | | + + + + + + | % | 1.61Comment: Testing | % | EXTERNAL | | | Eosinophils | performed at [facility];[address] | | LAB | | | | [address];[place] | | | | | | [address] | | | | + + + + + + | % Basophils | 0.63Comment: Testing | % | EXTERNAL | | | | performed at [facility];[address] | | LAB | | | | [address];[place] | | | | | | [address] | | | | + + + + + + | Absolute | 6.91Comment: Testing | 1.90 - 7.40 | EXTERNAL | | | Segmented | performed at [facility];888 | K/uL | LAB | | | Neutrophils | [address];[place] | | | | | | [address] | | | | + + + + + + | Absolute | 2.68Comment: Testing | 1.00 - 3.90 | EXTERNAL | | | Lymphocytes | performed at [facility];[address] | K/uL | LAB | | | | [address];[place] | | | | | | [address] | | | | + + + + + + | Absolute | 0.67Comment: Testing | 0.00 - 0.80 | EXTERNAL | | | Monocytes | performed at [facility];[address] | K/uL | LAB | | | | [address];[place] | | | | | | [address] | | | | + + + + + + | Absolute | 0.17Comment: Testing | 0.00 - 0.50 | EXTERNAL | | | Eosinophils | performed at [facility];888 | K/uL | LAB | | | | [address];[place] | | | | | | [address] | | | | + + + + + + | Absolute | 0.07Comment: Testing | 0.00 - 0.10 | EXTERNAL | | | Basophils | performed at [facility];[address] | K/uL | LAB | | | | [address];[place] | | | | | | [address] | | | | + + + [...] EXTERNAL | | | | performed at [facility] | | LAB | | | | [facility] | | | | | | [address] | | | | + + + [...] EXTERNAL | | | | performed at [facility] | | LAB | | | | [address];[place], [place] | | | | | | [address] | | | | + + + [...] LAB | | | | performed at [facility];[address] | | | | | | [address];[place] | | | | | | [address] | | | | + + + [...] EXTERNAL | | | | performed at [facility];[address] | | LAB | | | | [address];[place] | | | | | | [address] | | | | + + + [...] EXTERNAL | | | | performed at [facility];888 | mmol/L | LAB | | | | [address];[place] | | | | | | [address] | | | | + + + [...] EXTERNAL | | | | performed at [facility];[address] | | LAB | | | | [address];[place], [place] | | | | | | [address] | | | | + + + [...] EXTERNAL | | | | performed at [facility];888 | mmol/L | LAB | | | | [address];[place] | | | | | | [address] | | | | + + + + + + | K | 3.8Comment: Testing | 3.5 - 4.9 | EXTERNAL | | | | performed at [facility];888 | mmol/L | LAB | | | | [address];[place] | | | | | | [address] | | | | + + + + + + | Cl | 104Comment: Testing | 99 - 109 mmol/L | EXTERNAL | | | | performed at [facility];[address] | | LAB | | | | [address];[place] | | | | | | [address] | | | | + + + + + + | CO2 | 27Comment: Testing | 23 - 32 mmol/L | EXTERNAL | | | | performed at [facility];[address] | | LAB | | | | [address];[place] | | | | | | [address] | | | | + + + + + + | Anion Gap | 12Comment: Testing | 5 - 20 mmol/L | EXTERNAL | | | | performed at [facility];[address] | | LAB | | | | [address];[place] | | | | | | [address] | | | | + + + + + + | Glucose, | 80Comment: Testing | 65 - 99 mg/dL | EXTERNAL | | | Fasting | performed at [facility];[address] | | LAB | | | | [address];[place] | | | | | | [address] | | | | + + + + + + | BUN | 4 (L)Comment: Testing | 8 - 25 mg/dL | EXTERNAL | | | | performed at [facility];[address] | | LAB | | | | [address];[place] | | | | | | [address] | | | | + + + + + + | Creatinine | 0.83Comment: Testing | 0.50 - 1.00 | EXTERNAL | | | | performed at [facility];888 | mg/dL | LAB | | | | [address];[place] | | | | | | [address] | | | | + + + + + + | BUN/Creatin | 5Comment: Testing | | EXTERNAL | | | ine Ratio | performed at [facility];[address] | | LAB | | | | [address];[place] | | | | | | [address] | | | | + + + + + + | Calcium | 9.1Comment: Testing | 8.5 - 10.5 | EXTERNAL | | | | performed at [facility];888 | mg/dL | LAB | | | | [address];[place] | | | | | | [address] | | | | + + + + + + | Protein, | 7.4Comment: Testing | 6.3 - 8.2 g/dL | EXTERNAL | | | Total | performed at [facility];[address] | | LAB | | | | [address];[place] | | | | | | [address] | | | | + + + + + + | Albumin | 4.5Comment: Testing | 3.6 - 5.0 g/dL | EXTERNAL | | | | performed at [facility];[address] | | LAB | | | | [address];[place] | | | | | | [address] | | | | + + + + + + | Globulin | 3.0Comment: Testing | 1.3 - 4.9 g/dL | EXTERNAL | | | | performed at [facility];[address] | | LAB | | | | [address];[place] | | | | | | [address] | | | | + + + + + + | A/G Ratio | 1.5Comment: Testing | 1.0 - 2.4 | EXTERNAL | | | | performed at [facility];[address] | | LAB | | | | [address];[place] | | | | | | [address] | | | | + + + + + + | Bilirubin | 0.6Comment: Testing | 0.1 - 1.5 mg/dL | EXTERNAL | | | Total | performed at [facility];[address] | | LAB | | | | [address];[place] | | | | | | [address] | | | | + + + + + + | ALP, | 61Comment: Testing | 35 - 115 U/L | EXTERNAL | | | External | performed at [facility];[address] | | LAB | | | | [address];[place] | | | | | | [address] | | | | + + + + + + | AST | 7 (L)Comment: Testing | 10 - 45 U/L | EXTERNAL | | | | performed at [facility];[address] | | LAB | | | | [address];[place] | | | | | | [address] | | | | + + + + + + | ALT | 20Comment: Testing | 10 - 65 U/L | EXTERNAL | | | | performed at [facility];[address] | | LAB | | | | [address];[place] | | | | | | [address] | | | | + + + [...] | | | | | | at [facility];[address] | | [address];[place] [address] | | | | + + + [...] EXTERNAL | | | | performed at [facility];[address] | | LAB | | | | [address];[place] | | | | | | [address] | | | | + + + + + + | Clarity | CLEARComment: Testing | | EXTERNAL | | | | performed at [facility];[address] | | LAB | | | | [address];[place] | | | | | | [address] | | | | + + + + + + | Specific | 1.005Comment: Testing | 1.002 - 1.030 | EXTERNAL | | | [place], | performed at [facility];[address] | | LAB | | | Urine | [address];[place] | | | | | | [address] | | | | + + + + + + | Leukocyte | NEGATIVEComment: Testing | | EXTERNAL | | | Esterase, | performed at [facility];[address] | | LAB | | | Urine | [address];[place] | | | | | | [address] | | | | + + + + + + | Nitrite, | NEGATIVEComment: Testing | | EXTERNAL | | | Urine | performed at [facility];[address] | | LAB | | | | [address];[place] | | | | | | [address] | | | | + + + + + + | Urobilinoge | NORMALComment: Testing | mg/dL | EXTERNAL | | | n, Urine | performed at [facility];[address] | | LAB | | | | [address];[place] | | | | | | [address] | | | | + + + + + + | Protein, | NEGATIVEComment: Testing | mg/dL | EXTERNAL | | | Urine | performed at [facility];888 | | LAB | | | | [address];[place] | | | | | | [address] | | | | + + + + + + | pH, Urine | 7.0Comment: Testing | 5.0 - 8.0 | EXTERNAL | | | | performed at [facility];[address] | | LAB | | | | [address];[place] | | | | | | [address] | | | | + + + + + + | Blood, | NEGATIVEComment: Testing | | EXTERNAL | | | Urine | performed at [facility];[address] | | LAB | | | | [address];[place] | | | | | | [address] | | | | + + + + + + | Ketones | NEGATIVEComment: Testing | mg/dL | EXTERNAL | | | | performed at [facility];[address] | | LAB | | | | [address];[place] | | | | | | [address] | | | | + + + + + + | Bilirubin, | NEGATIVEComment: Testing | | EXTERNAL | | | Urine | performed at [facility];[address] | | LAB | | | | [address];[place] | | | | | | [address] | | | | + + + + + + | Glucose, | NEGATIVEComment: Testing | mg/dL | EXTERNAL | | | Urine | performed at [facility];[address] | | LAB | | | | [address];[place], [place] | | | | | | [address] | | | | + + + [...] | | | Ur | performed at [facility] | | LAB | | | | [address];[place], [place] | | | | | | [address] | | | | + + + [...]
--- OUTSIDE RECORDS SUMMARY | ~2020-03-05 | XMS | Encounter Summary ---
Demographics + + + | Address | [address] | | | [place] [address] | + + + | Home Phone | | + + + | Preferred Language | Unknown | + + + | Marital Status | Single | + + + | Buddhist Affiliation | 1073 | + + + | Race | Unknown | + + + | Ethnic Group | Unknown | + + + Author + + + | Author | [facility] | | | and [place] | + + + | Organization | [facility] | | | and [place] [...] [place] | | | | | [address] | | + + + + + | Bryant Farah | ECON | Unknown | | + + + + + Care Team Providers + +------+ + | Care Gravure Press Set Up Operator Name | Role | Phone | + +------+ + PCP | Unavailable | + +------+ + Encounter Details +--------+ + + + + | Date | Type | Department | Care Team | Description | +--------+ + + + + | 03/16/ | Hospital | [facility] GENER[facility] IP | Conversion | Back pain | | 2013 | Encounter | CONVERSION DEP [address] | Transaction, | | | | | [address] | Provider Unknown | | | | | [place], [place] | [phone] | | | | | [address] | | | | | | [phone] | | | +--------+ + + + [...]
--- OUTSIDE RECORDS SUMMARY | ~2020-03-05 | XMS | Encounter Summary ---
Demographics + + + | Address | [address] | | | [place] [address] | + + + | Home Phone | | + + + | Preferred Language | Unknown | + + + | Marital Status | Single | + + + | Episcopal Affiliation | 1073 | + + + | Race | Unknown | + + + | Ethnic Group | Unknown | + + + Author + + + | Author | [facility] | | | and [place] | + + + | Organization | [facility] | | | and [...] [place] | | | | | [address] | | + + + + + | Bryant Farah | ERICKA | Unknown | | + + + + + Care Team Providers + +------+ + | Care Icer Machine Name | Role | Phone | + +------+ + PCP | Unavailable | + +------+ + Encounter Details +--------+ + + + + | Date | Type | Department | Care Team | Description | +--------+ + + + + | 08/11/ | Hospital | [facility] | | | | 1998 | Encounter | MED CTR XRAY [address] | | | | | | [address] | | | | | | [place] [address] | | | | | | [phone] | | | +--------+ + + + [...]
--- OUTSIDE RECORDS SUMMARY | ~2020-03-05 | XMS | Encounter Summary ---
Demographics + + + | Address | [address] | | | [place] [address] | + + + | Home Phone | | + + + | Preferred Language | Unknown | + + + | Marital Status | Single | + + + | Church Affiliation | 1073 | + + + | Race | Unknown | + + + | Ethnic Group | Unknown | + + + Author + + + | Author | [facility] | | | and [place] | + + + | Organization | [facility] | | | and [...] [place] | | | | | [address] | | + + + + + | Bryant Farah | ECON | Unknown | | + + + + + Care Team Providers + +------+ + | Care Precision Lens Centerer And Edger Name | Role | Phone | + +------+ + PCP | Unavailable | + +------+ + Encounter Details +--------+ + + + + | Date | Type | Department | Care Team | Description | +--------+ + + + + | 06/22/ | Emergency | [facility] | Chung Portillo | Nondiabetic | | 2016 | | MEDICAL CENTER | [address] | gastroparesis | | | | EMERGENCY CENTER | [address] | | | | | [address] | [place], [place] | | | | | [place], [place] | [address] | | | | | [address] | [phone] | | | | | [phone] | | | +--------+ + + + [...] EXTERNAL | | | | performed at [facility];888 | K/uL | LAB | | | | [address];[place] | | | | | | [address] | | | | + + + + + + | Red Blood | 4.46Comment: Testing | 3.70 - 5.10 | EXTERNAL | | | Cells | performed at [facility];888 | M/uL | LAB | | | Counted | [address];[place] | | | | | | [address] | | | | + + + + + + | Hemoglobin | 13.9Comment: Testing | 11.3 - 15.5 | EXTERNAL | | | | performed at [facility];888 | g/dL | LAB | | | | [address];[place] | | | | | | [address] | | | | + + + + + + | Hematocrit, | 41.0Comment: Testing | 34.0 - 46.0 % | EXTERNAL | | | POC | performed at [facility];888 | | LAB | | | | [address];[place] | | | | | | [address] | | | | + + + + + + | MCV | 91.9Comment: Testing | 80.0 - 100.0 fl | EXTERNAL | | | | performed at [facility];888 | | LAB | | | | [address];[place] | | | | | | [address] | | | | + + + + + + | MCH | 31.1Comment: Testing | 27.0 - 34.0 pg | EXTERNAL | | | | performed at [facility];888 | | LAB | | | | [address];[place] | | | | | | [address] | | | | + + + + + + | MCHC | 33.9Comment: Testing | 32.0 - 35.5 | EXTERNAL | | | | performed at [facility];888 | g/dL | LAB | | | | [address];[place] | | | | | | [address] | | | | + + + + + + | RDW-CV | 40.3Comment: Testing | 37 - 53 fl | EXTERNAL | | | | performed at [facility];888 | | LAB | | | | [address];[place] | | | | | | [address] | | | | + + + + + + | Platelet | 203Comment: Testing | 150 - 400 K/uL | EXTERNAL | | | Count | performed at [facility];888 | | LAB | | | Plasma | [address];[place] | | | | | | [address] | | | | + + + + + + | MPV | 8.3Comment: Testing | fl | EXTERNAL | | | | performed at [facility];888 | | LAB | | | | [address];[place] | | | | | | [address] | | | | + + + + + + | Differentia | AUTOMATEDComment: | | EXTERNAL | | | l Type | Testing performed at | | LAB | | | | [facility];[address];[place] [address] | | | | + + + + + + | % Segmented | 65.86Comment: Testing | % | EXTERNAL | | | | performed at [facility];888 | | LAB | | | Neutrophils | [address];[place] | | | | | | [address] | | | | + + + + + + | % | 25.52Comment: Testing | % | EXTERNAL | | | Lymphocytes | performed at [facility];888 | | LAB | | | | [address];[place] | | | | | | [address] | | | | + + + + + + | % Monocytes | 6.38Comment: Testing | % | EXTERNAL | | | | performed at [facility];888 | | LAB | | | | [address];[place] | | | | | | [address] | | | | + + + + + + | % | 1.61Comment: Testing | % | EXTERNAL | | | Eosinophils | performed at [facility];888 | | LAB | | | | [address];[place] | | | | | | [address] | | | | + + + + + + | % Basophils | 0.63Comment: Testing | % | EXTERNAL | | | | performed at [facility];888 | | LAB | | | | [address];[place] | | | | | | [address] | | | | + + + + + + | Absolute | 6.91Comment: Testing | 1.90 - 7.40 | EXTERNAL | | | Segmented | performed at [facility];888 | K/uL | LAB | | | Neutrophils | [address];[place] | | | | | | [address] | | | | + + + + + + | Absolute | 2.68Comment: Testing | 1.00 - 3.90 | EXTERNAL | | | Lymphocytes | performed at [facility];888 | K/uL | LAB | | | | [address];[place] | | | | | | [address] | | | | + + + + + + | Absolute | 0.67Comment: Testing | 0.00 - 0.80 | EXTERNAL | | | Monocytes | performed at [facility];888 | K/uL | LAB | | | | [address];[place] | | | | | | [address] | | | | + + + + + + | Absolute | 0.17Comment: Testing | 0.00 - 0.50 | EXTERNAL | | | Eosinophils | performed at [facility];888 | K/uL | LAB | | | | [address];[place] | | | | | | [address] | | | | + + + + + + | Absolute | 0.07Comment: Testing | 0.00 - 0.10 | EXTERNAL | | | Basophils | performed at [facility];888 | K/uL | LAB | | | | [address];[place] | | | | | | [address] | | | | + + + [...] EXTERNAL | | | | performed at [facility] | | LAB | | | | [facility] | | | | | | [address] | | | | + + + [...] EXTERNAL | | | | performed at [facility] | | LAB | | | | [address];[place], [place] | | | | | | [address] | | | | + + + [...] LAB | | | | performed at [facility];[address] | | | | | | [address];[place] | | | | | | [address] | | | | + + + [...] EXTERNAL | | | | performed at [facility];888 | | LAB | | | | [address];[place] | | | | | | [address] | | | | + + + [...] EXTERNAL | | | | performed at [facility];888 | mmol/L | LAB | | | | [address];[place] | | | | | | [address] | | | | + + + [...] EXTERNAL | | | | performed at [facility];888 | | LAB | | | | [address];[place], [place] | | | | | | [address] | | | | + + + [...] EXTERNAL | | | | performed at [facility];888 | mmol/L | LAB | | | | [address];[place] | | | | | | [address] | | | | + + + + + + | K | 3.8Comment: Testing | 3.5 - 4.9 | EXTERNAL | | | | performed at [facility];888 | mmol/L | LAB | | | | [address];[place] | | | | | | [address] | | | | + + + + + + | Cl | 104Comment: Testing | 99 - 109 mmol/L | EXTERNAL | | | | performed at [facility];888 | | LAB | | | | [address];[place] | | | | | | [address] | | | | + + + + + + | CO2 | 27Comment: Testing | 23 - 32 mmol/L | EXTERNAL | | | | performed at [facility];888 | | LAB | | | | [address];[place] | | | | | | [address] | | | | + + + + + + | Anion Gap | 12Comment: Testing | 5 - 20 mmol/L | EXTERNAL | | | | performed at [facility];888 | | LAB | | | | [address];[place] | | | | | | [address] | | | | + + + + + + | Glucose, | 80Comment: Testing | 65 - 99 mg/dL | EXTERNAL | | | Fasting | performed at [facility];888 | | LAB | | | | [address];[place] | | | | | | [address] | | | | + + + + + + | BUN | 4 (L)Comment: Testing | 8 - 25 mg/dL | EXTERNAL | | | | performed at [facility];888 | | LAB | | | | [address];[place] | | | | | | [address] | | | | + + + + + + | Creatinine | 0.83Comment: Testing | 0.50 - 1.00 | EXTERNAL | | | | performed at [facility];888 | mg/dL | LAB | | | | [address];[place] | | | | | | [address] | | | | + + + + + + | BUN/Creatin | 5Comment: Testing | | EXTERNAL | | | ine Ratio | performed at [facility];888 | | LAB | | | | [address];[place] | | | | | | [address] | | | | + + + + + + | Calcium | 9.1Comment: Testing | 8.5 - 10.5 | EXTERNAL | | | | performed at [facility];888 | mg/dL | LAB | | | | [address];[place] | | | | | | [address] | | | | + + + + + + | Protein, | 7.4Comment: Testing | 6.3 - 8.2 g/dL | EXTERNAL | | | Total | performed at [facility];888 | | LAB | | | | [address];[place] | | | | | | [address] | | | | + + + + + + | Albumin | 4.5Comment: Testing | 3.6 - 5.0 g/dL | EXTERNAL | | | | performed at [facility];888 | | LAB | | | | [address];[place] | | | | | | [address] | | | | + + + + + + | Globulin | 3.0Comment: Testing | 1.3 - 4.9 g/dL | EXTERNAL | | | | performed at [facility];888 | | LAB | | | | [address];[place] | | | | | | [address] | | | | + + + + + + | A/G Ratio | 1.5Comment: Testing | 1.0 - 2.4 | EXTERNAL | | | | performed at [facility];888 | | LAB | | | | [address];[place] | | | | | | [address] | | | | + + + + + + | Bilirubin | 0.6Comment: Testing | 0.1 - 1.5 mg/dL | EXTERNAL | | | Total | performed at [facility];888 | | LAB | | | | [address];[place] | | | | | | [address] | | | | + + + + + + | ALP, | 61Comment: Testing | 35 - 115 U/L | EXTERNAL | | | External | performed at [facility];888 | | LAB | | | | [address];[place] | | | | | | [address] | | | | + + + + + + | AST | 7 (L)Comment: Testing | 10 - 45 U/L | EXTERNAL | | | | performed at [facility];888 | | LAB | | | | [address];[place] | | | | | | [address] | | | | + + + + + + | ALT | 20Comment: Testing | 10 - 65 U/L | EXTERNAL | | | | performed at [facility];888 | | LAB | | | | [address];[place] | | | | | | [address] | | | | + + + [...] | | | | | | at [facility];[address] | | | | | | [address];[place] [address] | | | | + + + [...] EXTERNAL | | | | performed at [facility];[address] | | LAB | | | | [address];[place] | | | | | | [address] | | | | + + + + + + | Clarity | CLEARComment: Testing | | EXTERNAL | | | | performed at [facility];[address] | | LAB | | | | [address];[place] | | | | | | [address] | | | | + + + + + + | Specific | 1.005Comment: Testing | 1.002 - 1.030 | EXTERNAL | | | [place], | performed at [facility];888 | | LAB | | | Urine | [address];[place] | | | | | | [address] | | | | + + + + + + | Leukocyte | NEGATIVEComment: Testing | | EXTERNAL | | | Esterase, | performed at [facility];888 | | LAB | | | Urine | [address];[place] | | | | | | [address] | | | | + + + + + + | Nitrite, | NEGATIVEComment: Testing | | EXTERNAL | | | Urine | performed at [facility];888 | | LAB | | | | [address];[place] | | | | | | [address] | | | | + + + + + + | Urobilinoge | NORMALComment: Testing | mg/dL | EXTERNAL | | | n, Urine | performed at [facility];888 | | LAB | | | | [address];[place] | | | | | | [address] | | | | + + + + + + | Protein, | NEGATIVEComment: Testing | mg/dL | EXTERNAL | | | Urine | performed at [facility];888 | | LAB | | | | [address];[place] | | | | | | [address] | | | | + + + + + + | pH, Urine | 7.0Comment: Testing | 5.0 - 8.0 | EXTERNAL | | | | performed at [facility];888 | | LAB | | | | [address];[place] | | | | | | [address] | | | | + + + + + + | Blood, | NEGATIVEComment: Testing | | EXTERNAL | | | Urine | performed at [facility];888 | | LAB | | | | [address];[place] | | | | | | [address] | | | | + + + + + + | Ketones | NEGATIVEComment: Testing | mg/dL | EXTERNAL | | | | performed at [facility];888 | | LAB | | | | [address];[place] | | | | | | [address] | | | | + + + + + + | Bilirubin, | NEGATIVEComment: Testing | | EXTERNAL | | | Urine | performed at [facility];888 | | LAB | | | | [address];[place] | | | | | | [address] | | | | + + + + + + | Glucose, | NEGATIVEComment: Testing | mg/dL | EXTERNAL | | | Urine | performed at [facility];888 | | LAB | | | | [address];[place], [place] | | | | | | [address] | | | | + + + [...] | | | Ur | performed at [facility] | | LAB | | | | [address];[place], [place] | | | | | | [address] [...]
--- OUTSIDE RECORDS SUMMARY | ~2020-03-05 | XMS | Encounter Summary ---
Demographics + + + | Address | [address] | | | [place] [address] | + + + | Home Phone | | + + + | Preferred Language | Unknown | + + + | Marital Status | Single | + + + | Episcopal Affiliation | 1073 | + + + | Race | Unknown | + + + | Ethnic Group | Unknown | + + + Author + + + | Author | [facility] | | | and [place] | + + + | Organization | [facility] | | | and [...] [place] | | | | | [address] | | + + + + + | Bryant Farah | ECON | Unknown | | + + + + + Care Team Providers + +------+ + | Care Rust Proofer Name | Role | Phone | + +------+ + PCP | Unavailable | + +------+ + Encounter Details +--------+ + + + + | Date | Type | Department | Care Team | Description | +--------+ + + + + | 03/20/ | Hospital | [facility] | Ulices Scott, | 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 She will follow-up with her [facility] physician for continued medical management. She [...] 03/22/131929 Date of Service: 03/22/131920 Status: Signed Assistant At Surgery: Ava Carolina RN (Registered Nurse) Patient tolerated [...] or pain at the intrathecal site noted. VAA CAROLINA RN 03/22/2013 7:29 PM onver chirstiano Transaction, Provider Unknown - 03/22/2013 6:55 PM PDT Progress Notes by Ava Carolina RN at 03/22/131854 Author: Ava Carolina RN Service: (none) Author Type: Registered Nurse Filed: 03/22/131854 Date of Service: 03/22/131854 Status: Signed Assistant At Surgery: Ava Carolina RN (Registered Nurse) Discharge teaching [...] 03/22/13656 Date of Service: 03/22/13651 Status: Signed Assistant At Surgery: Ulices Scott MD (Physician) [facility] Service: Interventional Pain Management Pre-Operative History & [...] Author: JUSTIN Ospina Service: (none) Author Type: Field Radio Technician Filed: 03/21/13 1036 Date of Service: 03/21/13 103 Status: Addendum Assistant At Surgery: JUSTIN Ospina (Field Radio Technician) Related Notes: Original Note by JUSTIN Ospina (Field Radio Technician) filed at 03/21/13 1 036 Met w/22yo F Pt who lives w/parents in [place], [place]. Pt lives in two story house [...] will transport home. Pt has info for [email or web address]. lices Brock MD - 03/21/2013 7:27 AM PDT Progress Notes by Ulices Scott MD at 03/21/13726 Author: Ulices Scott MD Service: Interventional Pain Management Author Type: Physic deya Filed: 03/21/1335 Date of Service: 03/21/13726 Status: Signed Assistant At Surgery: Ulices Scott MD (Physician) [facility] Service: Interventional Pain Management Pre-Operative History & [...] Date of Service: 03/21/13 0640 Status: Signed Assistant At Surgery: Dalrin Orlando, RN (Registered Nurse) Pt had no [...]
--- OUTSIDE RECORDS SUMMARY | ~2020-03-05 | XMS | Encounter Summary ---
Demographics + + + | Address | [address] | | | [place] [address] | + + + | Home Phone | | + + + | Preferred Language | Unknown | + + + | Marital Status | Single | + + + | Holiness Affiliation | 1073 | + + + | Race | Unknown | + + + | Ethnic Group | Unknown | + + + Author + + + | Author | [facility] | | | and [place] | + + + | Organization | [facility] | | | and [place] [...] [place] | | | | | [address] | | + + + + + | Bryant Farah | ECON | Unknown | | + + + + + Care Team Providers + +------+ + | Care Life Teacher Name | Role | Phone | + +------+ + PCP | Unavailable | + +------+ + Encounter Details +--------+ + + + + | Date | Type | Department | Care Team | Description | +--------+ + + + + | 03/16/ | Hospital | [facility] GENER[facility] IP | Conversion | Back pain | | 2013 | Encounter | CONVERSION DEP [address] | Transaction, | | | | | [address] | Provider Unknown | | | | | [place], [place] | [phone] | | | | | [address] | | | | | | [phone] | | | +--------+ + + + [...]
--- OUTSIDE RECORDS SUMMARY | ~2020-03-05 | XMS | Encounter Summary ---
Demographics + + + | Address | [address] | | | [place] [address] | + + + | Home Phone | | + + + | Preferred Language | Unknown | + + + | Marital Status | Single | + + + | Taoist Affiliation | 1073 | + + + | Race | Unknown | + + + | Ethnic Group | Unknown | + + + Author + + + | Author | [facility] | | | and [place] | + + + | Organization | [facility] | | | and [place] [...] [place] | | | | | [address] | | + + + + + | Bryant Farah | ERICKA | Unknown | | + + + + + Care Team Providers + +------+ + | Care Crop Roller Name | Role | Phone | + +------+ + PCP | Unavailable | + +------+ + Encounter Details +--------+ + + + + | Date | Type | Department | Care Team | Description | +--------+ + + + + | 08/11/ | Hospital | [facility] | | | | 1998 | Encounter | MED CTR XRAY [address] | | | | | | [address] | | | | | | [place] [address] | | | | | | [phone] | | | +--------+ + + + [...]
--- OUTSIDE RECORDS SUMMARY | ~2020-03-05 | XMS | Encounter Summary ---
Demographics + + + | Address | [address] | | | [place] [address] | + + + | Home Phone | | + + + | Preferred Language | Unknown | + + + | Marital Status | Single | + + + | Congregational Affiliation | 1073 | + + + | Race | Unknown | + + + | Ethnic Group | Unknown | + + + Author + + + | Author | [facility] | | | and [place] | + + + | Organization | [facility] | | | and [place] [...] [place] | | | | | [address] | | + + + + + | Bryant Farah | ERICKA | Unknown | | + + + + + Care Team Providers + +------+ + | Care Lithoduplicator Operator Name | Role | Phone | + +------+ + PCP | Unavailable | + +------+ + Encounter Details +--------+ + + + + | Date | Type | Department | Care Team | Description | +--------+ + + + + | 09/12/ | Hospital | [facility] | | | | 2008 | Encounter | MED CTR EMERGENCY | | | | | | CENTER [address] | | | | | | [place], [place] | | | | | | [address] | | | | | | [phone] | | | +--------+ + + + [...]
--- OUTSIDE RECORDS SUMMARY | ~2020-03-05 | XMS | Clinical Summary ---
Demographics + + + | Address | [address] | | | [place] [address] | + + + | Home Phone | | + + + | Preferred Language | Unknown | + + + | Marital Status | Single | + + + | Jewish Affiliation | 1073 | + + + | Race | Unknown | + + + | Ethnic Group | Unknown | + + + Author + + + | Author | [facility] | | | and [place] | + + + | Organization | [facility] | [...] | [place] | | | | | [address] | | + + + + + | Bryant Farah | ECON | Unknown | | + + + + + Care Team Providers + +------+ + | Care Lock Corner Machine Operator Name | Role | [...] +--------+ +---------+--------+ | MEDICARE | MEDICA | [id number] | 07/15/20 | [phone] | | Medica | | | RE | | 15-Pre | 5 | | re | | | PART A | | sent | | | | | | AND B | | | | | | + +--------+ +--------+ +---------+--------+ | MEDICAID [place] | MEDICA | [id number] | | [phone] | | Medica | [...] | 1990 | [phone] | [place] [address] | | | evita | | | 6 (Home) | | + +--------+ +--------+ + +"
--- OUTSIDE RECORDS SUMMARY | ~2020-03-05 | XMS | Encounter Summary ---
Demographics + + + | Address | [address] | | | [place] [address] | + + + | Home Phone [...] + + | Author | [facility] | | | and [place] | + + + | Organization | [facility] [...] [place] | | | | | [address] | | + + + + + | Bryant Farah | ECON | Unknown | | + + + + + Care Team Providers + +------+ + | Care End Matcher Name | Role | Phone | + +------+ + PCP | Unavailable | + +------+ + Encounter Details +--------+ + + + + | Date | Type | Department | Care Team | Description | +--------+ + + + + | 03/16/ | Hospital | [facility] | Conversion | Back pain | | 2013 | Encounter | CONVERSION [address] | Transaction, | | | | | [address] | Provider Unknown | | | | | [place], [place] | [phone] | | | | | [id number] | | | | | | [phone] | | | +--------+ + + + [...]
--- OUTSIDE RECORDS SUMMARY | ~2020-03-05 | XMS | Clinical Summary ---
Demographics + + + | Address | [address] | | | [place] [address] | + + + | Home Phone | | + + + | Preferred Language | Unknown | + + + | Marital Status | Single | + + + | Catholic Affiliation | [id number] | + + + | Race | Unknown | + + + | Ethnic Group | Unknown | + + + Author + + + | Author | [facility] (Historical as of | | | 06-30-19) | + + + | Organization | [facility] (Historical as of | | | 06-30-19) [...] Team Providers + +------+ + | Care Whiting Machine Operator Name | Role | Phone [...] She has undergone extensive therapy at [facility] | | [facility] at pain clinics in [place] as well and | | [place], [place]. She has had sympathetic nerve blocks [...] +------+-------+ + | MEDICARE | MEDICA | [id number] | | | [address] | | | RE | | | | [place] [address] | | | IP-OP | | | | | + +--------+ +------+-------+ + | PREMERA | PREMER | [id number] | | | [address] [address] | | | A BLUE | 3 | | | [place], [place] | | | CARD | | | | [address] | + +--------+ +------+-------+ + | MEDICAID | [place] | [id number] | | | [address] | | | CARE | | | | [place] | | | [place] | | | | [address] | + +--------+ +------+-------+ + + +--------+ [...] | | al/Fam | | 1989 | [phone] | [place], [place] | | | evita | | | [phone] | [phone] | + +--------+ +--------+ + +
--- OUTSIDE RECORDS SUMMARY | ~2020-03-05 | XMS | Encounter Summary ---
Demographics + + + | Address | [address] | | | [place] [address] | + + + | Home Phone [...] + | Organization | [facility] | | | and [place] [...] [place] | | | | | [phone] | | + + + + + | Bryant Farah | ERICKA | Unknown | | + + + + + Care Team Providers + +------+ + | Care Reed Man Name | Role | Phone | + +------+ + PCP | Unavailable | + +------+ + Encounter Details +--------+ + + + + | Date | Type | Department | Care Team | Description | +--------+ + + + + | 09/12/ | Hospital | [facility] | | | | 2008 | Encounter | [facility] | | [facility] [address] | | | | | | [place], [place] | | | | | | [address] | | | | | | [phone] | | | +--------+ + + + [...]
[~2020-03-05 10:50] MED LIST changes: +BUPRENORPHINE1 EAC4 TD
--- OUTSIDE RECORDS SUMMARY | 2020-03-05 10:54 | XMS ---
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 Packing Room Events No recent Security Events currently on file CRITERIA MET - Group Notification - [facility] - Has Care Guidelines - PDMP CARE PROVIDERS MARCELINO PERRY Internal Medicine 07/18/2018-Current PHONE: [phone] Aron Hannah Anesthesiology: Pain Medicine 07/18/2018-Current PHONE: Unknown Guidelines Source: [facility] Guidelines Date: 08/22/2019 Care Recommendation: PATIENT HAS HISTORY COMPLEX REEGIONAL PAIN SYNDROME WELL CYCLICAL ABDOMINAL PAIN/NAUSEA/VOMITING.\T\nbsp; UNDER TREATMENT WITH ARON HANNAH MD PHD PAIN MANAGMENT [facility].\T\nbsp; FOLLOW THIS REGIMEN WHEN PRESENTING TO ED FOR RESOLUTION OF SYMPTOMS: *HYDRATION IV *HYDROMORPHONE 1MG IV * KETOROLAC 30 MG IV *PROMETHAZINE 25MG IV Additional care guidelines exist for the following facilities: [facility] ( 05/21/2019 ) Care History Medical/Surgical 08/24/2019 [facility] - IF SEEN FOR HER CHRONIC COMPLEX REGIONAL PAIN SYNDROME/NAUSEA VOMITING IN THE EMERGENCY ROOM - TREAT WITH [facility]\T\nbsp;TREATMENT GUIDELINES IN THE ED ONLY --- DO NOT ADMIT FOR OBSERVATION OR\T\nbsp;INPATIENT - MAY NEED TO STAY FOR\T\nbsp;MULTIPLE\T\nbsp;TREATMENT ATTEMPTS - PATIENT IS NO LONGER TO BE ADMITTED\T\nbsp;FOR THIS CHRONIC CONDITION - IF SOMETHING ELSE IS FOUND ADMIT NEEDED\T\nbsp; 05/02/2018 [facility] - Patient is currently established with [facility]. If patient is seen in the ED during business hours. Please contact CHWs at [facility] at [phone]. Care Recommendation: This patient has had 5 or more Emergency Department visits in the last 12 months.\T\nbsp; Patient requires education on the scope and purpose of the ED as an acute care provider not a Primary Care Provider and should not be utilized for chronic conditions.\T\nbsp; If patient returns to ED please contact Community Health WorkerIlene at [phone]. These are guidelines and the provider should exercise clinical judgment when providing care. E.D. VISIT COUNT ([address] [facility] TOTAL 4 NOTE: Visits indicate total known visits. ED/UCC VISIT TRACKING (12 MO.) 03/05/2020 10:51 [facility] [place] TYPE: Emergency COMPLAINT: - ABD PAIN, VOMITING 08/12/2019 15:11 [facility] [place] TYPE: Emergency COMPLAINT: - ABD PAIN, NAUSEA 08/10/2019 13:43 [facility] [place] TYPE: Emergency COMPLAINT: - ABD/BACK PAIN, VOMITING DIAGNOSES: - Other alf (current) drug therapy - Upper abdominal pain, unspecified - Allergy status to narcotic agent status - Cyclical vomiting, not intractable 08/08/2019 18:18 [facility] [place] TYPE: Emergency COMPLAINT: - SEVERE ABD AND BACK PAIN, VOMITING DIAGNOSES: - Other alf (current) drug therapy - Complex regional pain syndrome I, unspecified - Unspecified abdominal pain - Allergy status to other drugs, medicaments and biological sub - Allergy status to narcotic agent status INPATIENT VISIT TRACKING (12 MO.) 08/12/2019 15:12 [facility] [place] TYPE: Observation COMPLAINT: - INTACKABLE ABDOMINAL PAIN DIAGNOSES: - superintendent terminal (current) use of opiate analgesic - Allergy status to narcotic agent status - Unspecified mood [affective] disorder - Complex regional pain syndrome I of left lower limb - Nausea with vomiting, unspecified - Right upper quadrant pain - Chronic pain syndrome - Other alf (current) drug therapy - Other constipation [email or web address]
[2020-03-05] MEDS ORDERED: KETOROLAC15 MG/1 M1 IM (11:14)
== END 2020-03-05 14:00 | disposition home or self-care (01) ==
LOC: ED 10:50
DX: R11.15 Cyclical vomiting syndrome unrelated to migraine (principal); R10.9 Unspecified abdominal pain; G89.29 Other chronic pain; F17.200 Nicotine dependence, unspecified, uncomplicated; Z88.5 Allergy status to narcotic agent; Z88.8 Allergy status to other drugs, medicaments and biological substances; Z79.899 Other long term (current) drug therapy; Z79.51 Long term (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
CPT/HCPCS: 96361; 96374; 96375; 99283-25; J1885; J2550; J7030

== ENCOUNTER 2020-03-09 13:20 | Emergency (ER) | payer MEDICARE, OTHER ==
[~2020-03-09] VITALS: Ht 165.1 cm; Wt 88.5 kg
--- OUTSIDE RECORDS SUMMARY | ~2020-03-09 | XMS | Encounter Summary ---
Demographics + + + | Address | [address] | | | [place] [address] | + + + | Home Phone | | + + + | Preferred Language | Unknown | + + + | Marital Status | Single | + + + | Yazdanism Affiliation | FMD | + + + | Race | White | + + + | Ethnic Group | Not or | + + + Author + + + | Author | [facility] | + + + | Organization | [facility] | + + + | Address | Unknown | + + + | Phone | Unavailable | + + + Support + + +---------+ + | Name | Relationship | Address | Phone | + + +---------+ + | Patricia Colin | ECON | Unknown | | + + +---------+ + Care Team Providers + +------+ + | Care Fire Support Man Name | Role | Phone | + +------+ + | Justo Vazquez MD | PCP | | + +------+ + Encounter Details +--------+ + + + + | Date | Type | Department | Care Team | Description | +--------+ + + + + | 08/07/ | Telephone | [facility] | Alex Sanchez, | | | 2019 | | Pain Center at | ,PhD [address] | | | | | [facility] | [address] | | | | | [address] | [place], [place] | | | | | [place] [facility] | [address] | | | | | and [facility] | [phone] | | | | | [address] | | | | | | [place], [place] | | | | | | [address] | | | | | | [phone] | | | +--------+ + + + [...]
--- OUTSIDE RECORDS SUMMARY | ~2020-03-09 | XMS | Encounter Summary ---
Demographics + + + | Address | [address] | | | [place] [address] | + + + | Home Phone | | + + + | Preferred Language | Unknown | + + + | Marital Status | Single | + + + | Caodaism Affiliation | FMD | + + + | Race | White | + + + | Ethnic Group | Not or | + + + Author + + + | Author | [facility] | + + + | Organization | [facility] | + + + | Address | Unknown | + + + | Phone | Unavailable | + + + Support + + +---------+ + | Name | Relationship | Address | Phone | + + +---------+ + | Patricia Colin | ECON | Unknown | | + + +---------+ + Care Team Providers + +------+ + | Care Marker Hand Name | Role | Phone | + [...] | | syndrome | [place] | [facility] | | | | | type [address] | [address] [place], | | | | | left lower | [place], [place] | [place] | | | | | extremity | [address] | [address] | | | | | Procedures | Phone: | Phone: | | | | | REQUEST TO | [phone] | [phone] | | | | | SURGERY | Fax: | Fax: | | | | | GASTROENTEROLOGY NURSE PRACTITIONER | [phone] | [phone] | +--------+---------+ + + + + Encounter Details +--------+---------+ + + + | Date | Type | Department | Care Team | Description | +--------+---------+ + + + | 09/28/ | Office | [facility] | Yun Frey NP | Complex regional | | 2018 | Visit | Pain Center at | [address] | pain syndrome type 1 | | | | [place] | [place], [place] | of left lower | | | | [address] | [address] | extremity (Primary | | | | [facility] | [phone] | Dx); Arthralgia of | | | | and Healing Building | | left lower leg | | | | [address]th Floor | | | | | | [place], [place] | | | | | | [address] | | | | | | [phone] | | | +--------+---------+ + + + [...] + + + | Blood Pressure | 116/69 | 09/28/2018 12:04 PM | | | | | PST | | + + + + + | Pulse | 107 | 09/28/2018 12:04 PM | | | | | PST | | + + + + + | Temperature | 36.3 C (97.3 F) | 09/28/2018 12:04 PM | | | | | PST | | + + + + + | Respiratory Rate | 16 | 09/28/2018 12:04 PM | | | | | PST | | + + + + + | Oxygen Saturation | 99% | 09/28/2018 12:04 PM | | | | | PST | | + + + + + | Inhaled Oxygen | - | - | | | Concentration | | | | + + + + + | Weight | 74.8 kg (165 lb) | 09/28/2018 12:04 PM | | | | | PST | | + + + + + | Height | 162.6 cm (5' 4") | 09/28/2018 12:04 PM | | | | | PST | | + + + + + | Body Mass Index | 28.32 | 09/28/2018 12:04 PM | | | | | PST | | + + + + + documented in this encounter Patient Instructions Patient Instructions Dayana Ivan - 09/28/2018 12:05 PM Shona, Thank you for taking the time to see us in [facility]. It was great to s ee you. Below is a summary of the discussion that we had today: - Please keep your appointment with Dr. Sanchez on 10/02/2018. -Please contact the [facility] rep if you have any further question on programming. documented in this encounter Progress Notes Cristela Rg MA - 09/28/2018 12:05 PM PSTCMA History: 1. Has your pain [...] NO ROS:. 1. BONES, JOINTS AND MUSCLES joint pain, muscle pain, stiffness and swelling 2. GASTROINTESTINAL SYSTEM negative 3. GENITOURINARY SYSTEM negative 4. NERVOUS SYSTEM weakness 5. PSYCHIATRIC HISTORY sleep disturbance, decreased energy, anxiety, fear of physical act ivity and social withdrawal Yun Tim, SYSTEMS PROJECT MANAGER - 1 11/28/2017 12:05 PM PST September 28, 2018 Tracie Farah [id number] [facility] Return Visit Chief Complaint: Chief Complaint Patient presents with Back pain Pain in right leg Pain in left leg History of Present Illness: Tracie Farah is a 28 y.o. female with a history as in dicated below: Patient Active Problem List Diagnosis CRPS (complex regional pain syndrome), lower limb Gait disturbance Muscle pain Adjustment reaction Pain in joint, lower leg Disturbance in sleep behavior Pain of upper abdomen 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 Irritable bowel syndrome with constipation Intractable cyclical vomiting with nausea Abdominal pain Abdominal scar neuroma Ms. Farah completed the Brief Pain Inventory and a pain drawing which I reviewed. [facility] Questionnaire Follow-up Patient 10/10/2017 Please describe the location(s) of your pain: Mid upper stomach What was your average pain rating for today? 3 What makes your pain better? Ketamine for my foot, promethazine and tordal for my stomach What makes your pain worse? Undetermined Has your pain changed since your last visit? No Change Do your medications cause any side effects? Yes Have you had any physical therapy appointments since your last visit? No Have you had any psychology appointments since your last visit? No Have you had any diagnostic studies since your last visit? No Do you require any medication refills today? No MUSCULOSKELETAL: muscle loss, joint pain, stiffness GASTROINTESTINAL: constipation GENITOURINARY: none of the above NERVOUS SYSTEM: numbness, weakness PSYCHIATRIC HISTORY: sleep disturbance, guilt, decreased energy, concentration, decreased o r increased appetite, anxiety, fear of physical activity, social withdrawal Please rate how much pain you have right now: 5 Please rate your pain at its least in the last 24 hours: 5 Please rate your pain at its worst in the last 24 hours: 7 Please rate your pain at its average: 6 In the last 24 hours, how much pain relief have pain treatments or medications provided? 80 % Please indicate how much in the past 24 hours that your pain has interfered with your gener al activity: 4 Please indicate how much in the past 24 hours that your pain has interfered with your mood: 6 Please indicate how much in the past 24 hours that your pain has interfered with your walki ng ability: 4 Please indicate how much in the past 24 hours that your pain has interfered with your rodrigo l work: 5 Please indicate how much in the past 24 hours that your pain has interfered with your relat ions with other people: 4 Please indicate how much in the past 24 hours that your pain has interfered with your enjoy ment of life: 5 Please indicate how much in the past 24 hours that your pain has interfered with your sexua l activity: 1 Please indicate how much in the past 24 hours that your pain has interfered with your sleep : 6 Alex Sanchez MD, PhD last saw Tracie on 06/12/18. At that point, our plan was: - Recommend DRG Stimulation Trial, ordered - Obtain XR Cervical Spine 4 Views, ordered - External referral provided to physical therapy for neck specific exercises - May consider MRI Cervical Spine imaging pending XR Cervical Spine results for further bri luation - May consider internal referrals to acupuncture and massage should physical therapy fail t o provide adequate benefit Alex Sanchez MD, PhD last performed the following procedure on Tracie on 09/25/18. PROCEDURE: DRG Spinal Cord Stimuation Trial with St. Exposed Vocals system LEVEL/LATERALITY: left L4, L5. Till date, she has yet to receive any significant relief. Today, she complains of constant pain in the right low back/buttocks worse than left lower leg. Her pain is made worse by moving. Her pain is improved by rest. This condition has r emained unchanged since Ms. Farah's last visit. She does not have new pain complaints o n this visit. Ms. Farah reports the following changes in her history, since the last appo intment: Initially, she was not able to turn up the DRG stimulation very much due to sensitive. Toda y she came in with stimulation turned up to 7%. After seeing th advertising account representative today and killian ing adjustments, she was able to tolerate the stimulation being turned up to 31%. Tracie is doing well after the procedure and does not complain of any side effects except fo r excruciating back pain which she expected. Tracie also notes some numbness in her right but tocks but no numbness, tingling, or weakness in the legs. Follow-up on patients should be based on the four "As": (i) Analgesics : What is the patient's average pain intensity? 06/23 (ii) Activities : How has the patient been functioning? Low functional status (iii) Adverse events : Has the patient had side effects? None reported. (iv) Aberrant behavior : Has there been any evidence of abuse, misuse, or addiction? None d etected. Past Medical History: Diagnosis Date Abdominal pain [...] Hemroidectomy Trial spinal cord stimulator leads 08/02/2012 [facility], Surgeon: Janak Riojas MD Cholecystectomy Appendectomy [...] Paternal Grandfather Cancer Paternal Grandfather Asthma Brother Current Medication List Name Sig BACLOFEN 10 MG TABLET Take 0.5 tablets by mouth two times daily. Take at the onset of abdom inal spasm for two days. Indications: muscle spasm CEFAZOLIN 500 MG SOLUTION FOR INJECTION Inject 2,000 mg into the vein (IV) every eight hour s. 2651-6821-71 COMPOUNDED MED RX CONTROLLED (SEE ADMIN INSTRUCT FOR INGREDIENTS) Ketamine 150 mg/ml nasal spray. 30 sprays intranasally every 3 hours. CYCLOBENZAPRINE 5 MG TABLET Take 5 mg by mouth three times daily as needed. Do not use long er than 2-3 weeks. HYDROCODONE 10 MG-ACETAMINOPHEN 325 MG TABLET Take 1 to 2 tablets by mouth every six hours as needed. HYDROXYZINE HCL 50 MG TABLET Take 1 tablet by mouth two times daily. KETAMINE 100 MG/ML INJECTION SOLUTION 20 to 30 sprays in each nostril every 3 hrs as needed for pain as directed by physician. Concentration is 150mg/mL. Compounded by [facility] ) KETOROLAC IM Inject into the muscle (IM). LEVONORGESTREL 20 MCG/24 HR (5 YEARS) INTRAUTERINE DEVICE 1 Each by Intrauterine route once . May be removed and replaced with a new unit at anytime during menstrual cycle; do not leav e any one system in place for > 5 years. ONDANSETRON HCL (PF) 4 MG/2 ML INJECTION SOLUTION Inject 2 mL into the vein (IV) every twel ve hours as needed. 7417-5368-63 ONDANSETRON 4 MG DISINTEGRATING TABLET Dissolve 1 tablet in mouth every twelve hours as nee ded. PANTOPRAZOLE 40 MG TABLET,DELAYED RELEASE Take 40 mg by mouth once daily. PEG 3350-ELECTROLYTES 236 GRAM-22.74 GRAM-6.74 GRAM-5.86 GRAM SOLUTION Take as directed by [facility]- 2 gallon bowel prep POLYETHYLENE GLYCOL 3350 17 GRAM/DOSE ORAL POWDER Take 17 g by mouth once daily. PROMETHAZINE 12.5 MG TABLET Take 25 mg by mouth four times daily as needed for nausea/vomit ing. .5 tabs daily SUCRALFATE 1 GRAM TABLET Take 1 g by mouth four times daily. Review of Systems: Bones, Joints, and Muscles: atrophy, joint pain and stiffness Gastrointestinal System: constipation Genitourinary System: negative Urinary incontinence: No. Nervous System: numbness and weakness Psychiatric History: sleep disturbance, guilt, decreased energy, concentration, decreased or increased appetite, anxiety, fear of physical activity, social withdrawal Diagnostic Imaging Radiology/Diagnostic Tests: EXAM: SPINE CERV 4 VIEWS - 06/12/18 HISTORY: Cervicalgia COMPARISON: None. FINDINGS: Cervical spine is well visualized through the level of C7. The vertebral body heights are preserved. Relative preservation of the intervertebral disc heights. There is trace anterolisthesis of C3 on C4. No significant change in alignment betw een flexion and extension imaging. No prevertebral soft tissue swelling. No significant facet osteoarthrosis. IMPRESSION: No significant change in alignment between flexion and extension imaging. No significant degenerative disc disease or facet osteoarthrosis. Most Recent Labs: Not applicable Physical examination: BP 116/69 | Pulse 107 | Temp 36.3 C (97.3 F) | RR 16 | Ht 1.626 m (5' 4") | Wt 74.8 kg (165 lb) | SpO2 99% | BMI 28.32 kg/(m^2) Appears healthy. Alert; in no acute distress. Pleasant. Myofascial tenderness: Tender to palpation over the procedure site NEUROLOGICAL: Motor power: Motor strength:Flexion & Extension is bilaterally 5+ in: knee (unable to complete on the le ft lower leg due to sensitivity). Left lower extremity - Deferred Reflexes: Bilaterally 2/4+: knee (unable to complete on the left knee due to sensitivity). Left lower extremity - deferred. DERMATOLOGICAL : Post-DRG site - C/D/I. Some tenderness to touch around the tape. Medical photography availa ble for review under Media tab. Impression/Assessment: G90.522 Complex regional pain syndrome type 1 of left lower extremity M25.562 Arthralgia of left lower leg Tracie Farah is a 28 y.o. female with CRPS Type I of the left lower extremity, is current 2-day out status post dorsal root ganglion (DRG) trial. Thus far, she has yet to rec eive any significant relief from the DRG trial. Ms. Farah has been given programming opti ons by the [employer]'s device advertising account representative, Michele. At this time, there is no complication from the DRG trial. Recommendations/Plan: 1. Recommend to keep her appointment with Dr. Sanchez on 10/02/2018. 2. To contact the [employer]'s rep if she has any further question on programming. 09/28/2018: I, Dayana Ivan, am functioning as a biomedical engineering technician for Yun Frey NP. I have reviewed and verified the above scribed note of my visit with this patient as record ed by Ms. Dayana Ivan. Jeanine Frey (Mr.) MSN, ACNP- Nurse Practitioner [facility] [address] [place] [id number] documented in this enco unter Plan of Treatment Not on filedocumented as of this encounter Visit Diagnoses + + | Diagnosis | + + | Complex regional pain syndrome type 1 of left lower extremity - Primary | + + | Arthralgia of left lower leg Pain in joint, lower leg | + + documented in this encounter
--- OUTSIDE RECORDS SUMMARY | ~2020-03-09 | XMS | Encounter Summary ---
Demographics + + + | Address | [address] | | | [place] [address] | + + + | Home Phone | | + + + | Preferred Language | Unknown | + + + | Marital Status | Single | + + + | Latter-Day Affiliation | FMD | + + + [...] Team Providers + +------+ + | Care Yard Laborer Name | Role | Phone | + [...] Pain Medicine | Diagnoses | Chasity, | Petroleum Inspector Chh1 | | | | / Pain | Abdominal | MD Kenny | [address] | | | | Management | pain, | [address] | [facility] | | | | | unspecified | [facility] | for Health | | | | | location | Rd | and Healing | | | | | Procedures | [place], [place] | [facility] | | | | | CONSULT TO | [address] | [address] | | | | | PAIN | | [employer] [place] [employer], [place] | | | | | MANAGEMENT | | [address] | | | | | | | Phone: | | | | | | | [phone] | | | | | | | Fax: | | | | | | | [phone] | +--------+--------+ + + + + Reason for Visit + + + | Reason | Comments | + + + | Lab Order | | + + + | Abdominal pain | | + + + Encounter Details +--------+ + + + + | Date | Type | Department | Care Team | Description | +--------+ + + + + | 03/07/ | Telephone | [facility] | Kenny Gaspar MD | Lab Order; Abdominal | | 2016 | | [place] [id number] | | pain | | | | [address] [facility] | | | | | | for Health and | | | | | | Healing, [facility] [address] | | | | | | [place], [place] | | | | | | [address] | | | | | | [phone] | | | +--------+ + + + [...] + | Diagnosis | + + | Abdominal pain, unspecified location - Primary | + + documented in this encounter"
--- OUTSIDE RECORDS SUMMARY | ~2020-03-09 | XMS | Encounter Summary ---
Demographics + + + | Address | [address] | | | [place] [address] | + + + | Home Phone | | + + + | Preferred Language | Unknown | + + + | Marital Status | Single | + + + | Moravian Affiliation | FMD | + + + [...] Team Providers + +------+ + | Care Credit Card Associate Name | Role | Phone | + +------+ + | Justo Vazquez MD | PCP | | + +------+ + Encounter Details +--------+ + + + + | Date | Type | Department | Care Team | Description | +--------+ + + + + | 06/12/ | Hospital | Radiology/Imaging | Alex Sanchez, | | | 2018 | Encounter | Lab at [facility] [address] | ,PhD [address] [facility] | | | | | [facility] | [facility] | | | | | [facility] and | [facility] [place] | | | | | [facility], Building [address], | [address] | | | | | [facility] Floor | [phone] | | | | | [place], [place] | | | | | | [address] | | | | | | [phone] | | | +--------+ + + + [...] + + documented as of this encounter Medications at Time of Discharge + + + +---------+ + + | Medication | Sig | Dispensed | Refills | Start | End Date | | | | | | Date | | + + + +---------+ + + | baclofen 10 mg | Take 0.5 tablets by | 6 | 0 | 10/21/20 | | | oral | mouth two times | tablet | | 17 | | | tabletIndications: | daily. Take at the | | | | | | muscle spasm | onset of abdominal | | | | | | | spasm for two days. | | | | | | | Indications: muscle | | | | | | | spasm | | | | | + + + +---------+ + + | cyclobenzaprine 5 | Take 5 mg by mouth | | 0 | | | | mg oral tablet | three times daily as | | | | | | | needed. Do not use | | | | | | | longer than 2-3 | | | | | | | weeks. | | | | | + + + +---------+ + + | hydrOXYzine 50 mg | Take 1 tablet by | | 5 | 06/08/20 | | | oral tablet | mouth two times | | | 18 | | | | daily. | | | | | + + + +---------+ + + | ketorolac | Inject into the | | 0 | | | | tromethamine | muscle (IM). | | | | | | (KETOROLAC IM) | | | | | | + [...] + + + +---------+ + + | ondansetron ODT 4 | Dissolve 1 tablet in | 15 | 0 | 08/08/20 | | | mg oral | mouth every twelve | tablet | | 16 | | | tablet,disintegratin | hours as needed. | | | | | | g | | | | | | + + + +---------+ + + | pantoprazole 40 mg | Take 40 mg by mouth | | 0 | | | | oral tablet,delayed | once daily as | | | | | | release (DR/EC) | needed. | | | | | + + + +---------+ + + | peg-electrolyte | Take as directed by | 8000 mL | 0 | 12/07/19 | | | [id number] -5.86 | [facility] | | | 17 | | | gram oral recon | Health- 2 gallon | | | | | | soln | bowel prep | | | | | + + + +---------+ + + | polyethylene | Take 17 g by mouth | 119 g | 0 | 10/25/20 | | | glycol 17 gram/dose | once daily. | | | 15 | | | oral powder | | | | | | + + + +---------+ + + | sucralfate 1 gram | Take 1 g by mouth | | 0 | | | | oral tablet | four times daily. | | | | | + + + +---------+ + + documented as of this encounter Plan of Treatment Not on filedocumented as of this encounter Procedures + +--------+ + + + | Procedure Name | Priori | Date/Time | Associated Diagnosis | Comments | | | ty | | | | + +--------+ + + + | X-RAY SPINE CERV 4 | Routin | 06/12/2018 | Complex regional | Results for this | | VIEWS | e | 11:40 AM | pain syndrome type 1 | procedure are in the | | | | PDT | of left lower | results section. | | | | | extremity | | + +--------+ + + + documented in this encounter Results X-RAY SPINE CERV 4 VIEWS (06/12/2018 11:40 AM PDT) + + | Specimen | + + | | + + + + + | Narrative | Performed At | + + + | EXAM: SPINE CERV 4 VIEWS HISTORY: Cervicalgia COMPARISON: | [facility] | | None. FINDINGS: Cervical spine is well visualized through the | RADIOLOGY VOICE | | level of C7. The vertebral body heights are preserved. Relative | RECOGNITION 2 | | preservation of the intervertebral disc heights. There is trace | | | anterolisthesis of C3 on C4. No significant change in alignment | | | between flexion and extension imaging. No prevertebral soft tissue | | | swelling. No significant facet osteoarthrosis. IMPRESSION: | | | No significant change in alignment between flexion and extension | | | imaging. No significant degenerative disc disease or facet | | | osteoarthrosis. I have personally reviewed the images and, if | | | necessary, edited the report. I agree with the report as now | | | presented. Final signature: Varinder Harding MD 06/12/2018 | | | 12:15 PM Preliminary: Varinder Harding MD Dictation | | | initiated: Varinder Harding MD 06/12/2018 12:14 PM | | + + + + + | Procedure Note | + + | Service Account, Radiant Res In Interface - 06/12/2018 12:16 PM PDT EXAM: SPINE CERV | | 4 VIEWS HISTORY: Cervicalgia COMPARISON: None. FINDINGS: Cervical spine is well | | visualized through the level of C7. The vertebral body heights are preserved. Relative | | preservation of the intervertebral disc heights. There is trace anterolisthesis of C3 on | | C4. No significant change in alignment between flexion and extension imaging. No | | prevertebral soft tissue swelling. No significant facet osteoarthrosis. IMPRESSION: No | | significant change in alignment between flexion and extension imaging. No significant | | degenerative disc disease or facet osteoarthrosis. I have personally reviewed the images | | and, if necessary, edited the report. I agree with the report as now presented. Final | | signature: Varinder Harding MD 06/12/2018 12:15 PM Preliminary: Varinder Harding MD | | Dictation initiated: Varinder Harding MD 06/12/2018 12:14 PM | |No prevertebral soft tissue swelling. | | | |No significant facet osteoarthrosis. | | | |IMPRESSION: | | | |No significant change in alignment between flexion and extension imaging. | | | |No significant degenerative disc disease or facet osteoarthrosis. | | | |I have personally reviewed the images and, if necessary, edited the report. I agree with th e report as now presented. | | | |Final signature: Varinder Harding MD 06/12/2018 12:15 PM | |Preliminary: Varinder Harding MD | |Dictation initiated: Varinder Harding MD 06/12/2018 12:14 PM | + + + +---------+ + + | Performing | Address | City/State/Zipcode | Phone Number | | Organization | | | | + +---------+ + + | [facility] | | | | | VOICE RECOGNITION 2 | | | | + +---------+ + + documented in this encounter Visit Diagnoses + + | Diagnosis | + + | Complex regional pain syndrome type 1 of left lower extremity | + + documented in this encounter"
--- OUTSIDE RECORDS SUMMARY | ~2020-03-09 | XMS | Encounter Summary ---
Demographics + + + | Address | [address] | | | [place] [address] | + + + | Home Phone | | + + + | Preferred Language | Unknown | + + + | Marital Status | Single | + + + | Jain Affiliation | FMD | + + + [...] Team Providers + +------+ + | Care Transmission Supervisor Name | Role | Phone | + +------+ + | Justo Vazquez MD | PCP | | + +------+ + Reason for Referral Physical Therapy (Routine) +--------+--------+ + + + + | Status | Reason | Specialty | Diagnoses / | Referred By | Referred To | | | | | Procedures | Contact | Contact | +--------+--------+ + + + + | Closed | | Physical | Diagnoses | Daniel, | | | | | Therapy | Complex | Alex Alba, | | | | | | regional | ,PhD [address] | | | | | | pain | [address] | | | | | | syndrome | [address] | | | | | | type [address] of | [address] | | | | | | left lower | [place], [place] | | | | | | extremity | [address] | | | | | | Procedures | Phone: | | | | | | PHYSICAL | [phone] | | | | | | THERAPY | Fax: | | | | | | REFERRAL | [phone] | | +--------+--------+ + + + + Encounter Details +--------+ + + + + | Date | Type | Department | Care Team | Description | +--------+ + + + + | 01/22/ | Telephone | [facility] | Alex Sanchez, | | | 2019 | | Pain Center at | ,PhD [address] | | | | | [facility] | [facility] | | | | | [address] | [place], [place] | | | | | [place] [facility] | [address] | | | | | and [facility] | [phone] | | | | | | | | | | | [place], [place] | | | | | | [address] | | | | | | [phone] | | | +--------+ + + + [...]
--- OUTSIDE RECORDS SUMMARY | ~2020-03-09 | XMS | Encounter Summary ---
Demographics + + + | Address | [address] | | | [place] [address] | + + + | Home Phone [...] Author + + + | Author | [facility] | + + + | Organization | [facility] | + + + | Address | Unknown | + + + | Phone | Unavailable | + + + Support + + +---------+ + | Name | Relationship | Address | Phone | + + +---------+ + | Patricia Colin | ECON | Unknown | | + + +---------+ + Care Team Providers + +------+ + | Care Cereal Miller Name | Role | Phone | + +------+ + | Allegra Gandhi | PCP | | + +------+ + Reason for Visit + + + | Reason | Comments | + + + | Pre-operative | No evidence of drug abuse | | evaluation | | + + + Encounter Details +--------+ + + + + | Date | Type | Department | Care Team | Description | +--------+ + + + + | 06/26/ | Documentati | [facility] | Janak Riojas, | Pre-operative | | 2011 | on | Pain Center at | MD [address] [facility] | evaluation (No | | | | [facility] | [facility] [id number] | evidence of drug | | | | [address] | [place], [place] | abuse) | | | | [facility] | [address] | | | | | and Healing Building | [phone] | | | | | Floor | | | | | | [place], [place] | | | | | | [address] | | | | | | [phone] | | | +--------+ + + + [...]
--- OUTSIDE RECORDS SUMMARY | ~2020-03-09 | XMS | Encounter Summary ---
Demographics + + + | Address | [address] | | | [place] [address] | + + + | Home Phone | | + + + | Preferred Language | Unknown | + + + | Marital Status | Single | + + + | Hindu Affiliation | FMD | + + + | Race | White | + + + | Ethnic Group | Not or | + + + Author + + + | Author | [facility] | + + + | Organization | [facility] | + + + | Address | Unknown | + + + | Phone | Unavailable | + + + Support + + +---------+ + | Name | Relationship | Address | Phone | + + +---------+ + | Patricia Colin | ECON | Unknown | | + + +---------+ + Care Team Providers + +------+ + | Care Gasoline Tractor Operator Name | Role | Phone | + +------+ + | Allegra Gandhi | PCP | | + +------+ + Reason for Visit + + + | Reason | Comments | + + + | Evaluation AND/OR | | | management - new | | | patient | | + + + Consultation (Routine) +--------+--------+ + + + + | Status | Reason | Specialty | Diagnoses / | Referred By | Referred To | | | | | Procedures | Contact | Contact | +--------+--------+ + + + + | Closed | | Psychology / | Diagnoses | [facility] | [facility] | | | | Pain | CRPS | Janak Martinez MD | [facility] [address] | | | | Management | (complex | [address] | | | | | regional | [address] | Center for | | | | | pain | [facility] | Health and | | | | | syndrome), | [id number] | Healing | | | | | lower limb | [place], [place] | Building [address], | | | | | Gait | [address] | 15th Floor | | | | | disturbance | Phone: | [place], [place] | | | | | Muscle pain | [phone] | [address] | | | | | Procedures | Fax: | Phone: | | | | | CONSULT TO | [phone] | [phone] | | | | | PAIN CENTER | | Fax: | | | | | | | [phone] | +--------+--------+ + + + + Encounter Details +--------+---------+ + + + | Date | Type | Department | Care Team | Description | +--------+---------+ + + + | 02/28/ | Office | Pain Center at [facility] | Shelia Feldman, PhD | Unspecified | | 2011 | Visit | [address] | | adjustment reaction | | | | [facility] | | (Primary Dx); Sleep | | | | and Healing Building | | disturbance, | | | | 1, 15th Floor | | unspecified | | | | [place], [place] | | | | | | [address] | | | | | | [phone] | | | +--------+---------+ + + + [...] documented as of this encounter Progress Notes Shelia Feldman, PhD - 02/29/2012 4:49 PM PDT [facility] Name: Tracie Farah MR#: [id number] Date of : 1990 Date: February 29, 2012 Attending Psychologist: SHELIA FELDMAN, PHD PAIN PSYCHOLOGICAL EVALUATION Today's evaluation included review of medical records, clinical interview, and the followin g psychological tests: the Horton Depression Inventory-II, the Pain Anxiety Symptom Scale, an d the Pain Catastrophizing Scale. These tests are validated and normed for use with chronic pain patients. The scoring of psychological testing, interpretation of results, and synthesi s of findings into this report comprised two hours' time. The consent form outlining the li mits of confidentiality was signed by the patient. Introduction: Tracie Farah is a 21-year-old woman with >5 year hx of CRPS, R LE. Past Medical History Diagnosis Date Other chronic pain Reflex sympathetic dystrophy of the lower limb Depression Anxiety Compartment syndrome Peroneal nerve injury Neuroma of lower extremity Ankle fracture, left Past Surgical History Procedure Date Tonsillectomy and adenoidectomy Ankle surgery x 9 Fasciotomy Neurectomy foot Nerve block 03/18/11 & 03/25/11 Left lumbar sympathetic ganglion block Hemroidectomy Current outpatient prescriptions:DULoxetine (CYMBALTA) 30 mg Oral Capsule, Delayed Release( E.C.), Take 30 mg by mouth once daily. , Disp: , Rfl: HYDROcodone-acetaminophen (NORCO) 10-325 mg Oral Tablet, Take 2 Tabs by mouth every four ho urs as needed. Not to exceed 10 tablets per any 24 hour period. (Not to exceed 3250 mg of ac etaminophen from all products per 24 hour period.) , Disp: , Rfl: levonorgestrel (MIRENA) 20 mcg/24 hr Intrauterine IUD, 1 Each by Intrauterine route once. M ay be removed and replaced with a new unit at anytime during menstrual cycle; do not leave a ny one system in place for > 5 years. , Disp: , Rfl: LORazepam 1 mg Oral Tablet, Take 1 mg by mouth every four hours as needed. , Disp: , Rfl: promethazine 25 mg Oral Tablet, Take 25 mg by mouth four times daily as needed. , Disp: , Rfl: Social & Psychiatric History: Tracie Farah lives in [place] in a shared apartment space. She has struggled wi th CRPS for at least 5 years; original injury to her foot was in 2001. In summer 2010 she h ad inpt pain tx at [facility] with limited fpc benefit. Recent flare; she arrived using crutches today. She stated that she cannot work, school is a struggle. Focus on opioids for pain control because they are the only thing that brings relief. Pain is often so severe i t brings vomiting and panic attacks. She stated she vomits daily due to pain. Only child of parents who cannot stand each other. She has been-- and continues to be--caught in the middle of the drama of her parents. Parents fight over her attention a nd who gets to attend her medical appointments. She finds this to be very stressful and she often has to advocate to be the focus. Recent relationship with an older man; she "ended" the relationship but still has texting contact with him, unbeknownst to her parents. The man stalks her; she withholds info from [employer] as she fears her father would committ a crime to protect his daughter (e.g., confront the stalker). I discussed with her today the idea of reclaiming control by stopping all respond ing to his texts. She learned some pain management techniques at [facility], mainly DB and PMR, which she does n't like but uses a bit. She is aware that stress makes her pain worse. She uses distracti on. History is nonsignificant for developmental concerns or neurological insult. Presentation: The patient presented today with appropriate affect and normothymic mood. S he was casually dressed and neatly groomed with good eye contact and engaged demeanor. Cognit nelia functioning, speech, thought processes, judgment, insight and problem solving were all w ithin normal limits for the purposes of this interview. Recent and remote memory were gross ly intact. Fund of knowledge was consistent with level of education. Psychological Testing: Combined results for the clinical interview and the Horton Depression Inventory-II indicate t hat she is Not currently depressed () but is struggling with her pain and debil ity. She endorsed the following symptoms: feeling discouraged about the future, loss of dayana f-confidence, self-criticalness, indecisiveness,anergia, onset insomnia, irritability, diffi culty concentrating. Suicidal Ideation: negative For the Pain Anxiety Symptoms Scale, responses were as follows: Fearful Appraisal: ( Percentile) Cognitive Anxiety: ( Percentile) Escape and Avoidance Responses: ( Percentile) Physiological Anxiety: ( Percentile) Assessment & Plan: The patient is experiencing levels of pain-related anxiety as compared to a normative reference group of chronic pain patients. Recommendations are as fo llows. For the Pain Catastrophizing Scale, responses indicated that cognitive coping is marginal. She evidenced Severe (32/52) catastrophizing tendencies and adaptive cognitive coping ski lls are fair. Catastrophizing is associated with poor outcome for pain treatment and is a ri sk factor for depression. Thus, cognitive behavioral therapy is indicated to improve cognit nelia coping skills. Discussed this in detail today and went into actual treatment in today's session given that she has a medical procedure scheduled for tomorrow. Financial Stress: Severe; she is largely out of work and relying on parents for financial assistance Goals for Treatment: 1. Pain and anxiety skills acquisition 2. Improve sleep 3. Improve boundaries and self-care Strengths, Weaknesses & Special Considerations: 1. Travel is a barrier; she lives in [place] DSM-IV Diagnoses/Impressions: [place] I: 1. 309.9 Unspecified Adjustment Reaction 2. 780.50 Sleep Disturbance [place] II: Deferred. [place] III: Patient Active Problem List Diagnoses CRPS (complex regional pain syndrome), lower limb Gait disturbance Muscle pain Adjustment reaction [place] IV: CRPS pain, pain related debility;difficulty attending class, working; family stres s; stalker ex-bf [place] V: Global Assessment of Functioning = 75 Findings & Treatment Recommendations: 1. Tracie is a classic catastrophizer with marginal mental and emotional coping skills. Pro vided education on the topic today. Gave her a CD to use 1-2x daily. Taught BTS, gave brief treatment today, and encouraged self-treatment. I would like to see her for 3 f/u sessions . 2. Sleep is poor; onset insomnia secondary to pain. Encouraged her to discuss melatonin w ith her PCP; higher dose likely needed due to severe nighttime pain and inability to distrac t. 3. Stress related to discordant parents and stalker ex-bf. F/u will focus on improved boun daries. 4. Will encourage improved boundaries with parents and clear separation between parents dur ing medical appts. 5. I provided her with my contact card; she is aware she may call/email me should questions arise. SHELIA FELDMAN, PHD Scale Agent Licensed Clinical Psychologist [facility] Department of Anesthesiology & Perioperative Medicine [facility] [address] [place] [address] documented in this enc ounter Plan of Treatment Not on filedocumented as of this encounter Visit Diagnoses + + | Diagnosis | + + | Unspecified adjustment reaction - Primary | + + | Sleep disturbance, unspecified | + + documented in this encounter
--- OUTSIDE RECORDS SUMMARY | ~2020-03-09 | XMS | Encounter Summary ---
Demographics + + + | Address | [address] | | | [place] [address] | + + + | Home Phone | | + + + | Preferred Language | Unknown | + + + | Marital Status | Single | + + + | Holiness Affiliation | FMD | + + + [...] Team Providers + +------+ + | Care Statistical Assistant Name | Role | Phone | + +------+ + | Justo Vazquez MD | PCP | | + +------+ + Encounter Details +--------+ + + + + | Date | Type | Department | Care Team | Description | +--------+ + + + + | 09/25/ | Pharmacy | Outpatient Retail | | | | 2017 | Visit | [facility] | | | | | | [address] | | | | | | [address] [place], [place] | | | | | | [address] | | | | | | [phone] | | | +--------+ + + + [...]
--- OUTSIDE RECORDS SUMMARY | ~2020-03-09 | XMS | Encounter Summary ---
Demographics + + + | Address | [address] | | | [place] [address] | + + + | Home Phone | | + + + | Preferred Language | Unknown | + + + | Marital Status | Single | + + + | Advent Affiliation | FMD | + + + [...] Team Providers + +------+ + | Care Poultice Machine Operator Name | Role | Phone [...] | | | | | syndrome | [facility] | [facility] | | | | | type [address] of | [address] | Rd [place], | | | | | left lower | [facility], [place] | [place] | | | | | extremity | [address] | [phone] | | | | | Muscle pain | Phone: | Phone: | | | | | Procedures | [phone] | [phone] | | | | | REQUEST TO | Fax: | Fax: | | | | | SURGERY | [phone] | [phone] | | | | | NUCLEAR LOGGING ENGINEER | | | +--------+---------+ + + + [...] | syndrome | [place] | [facility] [place] | | | | | type [address] of | [address] | Rd [place], | | | | | left lower | [place], [place] | [place] | | | | | extremity | [address] | [phone] | | | | | Muscle pain | Phone: | Phone: | | | | | Procedures | [phone] | [phone] | | | | | REQUEST TO | Fax: | Fax: | | | | | SURGERY | [phone] | [phone] | | | | | NUCLEAR LOGGING ENGINEER | | | | | | | [place] INJ,ANES | | | | | | | AGENT,SCIATI | | | | | | | C | | | | | | | NERVE,SINGLE | | | | | | | [place] INJECT | | | | | | | NERV | | | | | | | BLCK,OTHR | | | | | | | PERIPH NERV | | | | | | | [place] SONO | | | | | | | GUIDE FOR | | | | | | | NEEDLE | | | | | | | PLACEMENT | | | | | | | [place] MOD | | | | | | | SEDATION | | | | | | | >=5YRS SAME | | | | | | | MD/QUAL | | | | | | | PROV; INIT | | | | | | | 15 MIN [place] | | | | | | | [...] | | | | | Procedures | [facility] [place] | [facility], | | | | | CONSULT TO | [address] | [place] | | | | | PAIN | | [address] | | | | | MANAGEMENT | | Phone: | | | | | | | [phone] | | | | | | | Fax: | | | | | | | [phone] | +--------+--------+ + + + + Encounter Details +--------+---------+ + + + | Date | Type | Department | Care Team | Description | +--------+---------+ + + + | 12/14/ | Office | [facility] | Alex Sanchez, | Complex regional | | 2018 | Visit | Pain Center at | ,PhD [address] | pain syndrome type 1 | | | | [facility] | [facility] [address] | of left lower | | | | [address] | [place], [place] | extremity (Primary | | | | [facility] | [address] | Dx); Muscle pain; | | | | and Healing Building | [phone] | Pain of upper | | | | ,15th Floor | | abdomen | | | | [place], [place] | | | | | | [address] | | | | | | [phone] | | | +--------+---------+ + + + [...] the time to see us in the [facility]. It was great to [...] make sure this is scheduled with the Assistant Secretary. PRE-PROCEDURE INSTRUCTIONS 1. Please bring a dedicated driver with you as we may give you medications that impair your ability to drive. This is necessary even if you do not receive sedation. You may take a taxi or [employer] if you are accompanied by a responsible [...] or blood thinning medications (other than aspirin), [facility] doctor who is doing your procedure will communicate with the provider who is prescribing y our anticoagulant therapy. If you do not have clear instructions on what to do with your an ticoagulant by 2 weeks before your procedure, please contact [facility] to cl arify your instructions. The phone number for questions or concerns is [phone]. documented in this encounter Progress Notes Charline [...] M D,PhD - 12/14/2017 10:25 AM PST [facility] Return Visit Date: 12/14/2017 Chief Complaint Patient presents with Back pain Low back pain Abdominal pain Pain in right leg Pain in left leg History of Present Illness: Tracie Farah is a 27 year old female, whose last appoi ntment at the [facility] was October 11, 2017, for a clinic [...] review treatment plan. * Follow up with [facility] as needed. Today, she [...] was treated by Christie Madrid MD in [place], [place] for three years before she abruptly ended her practice due to illness. This left her without a doctor to help her manage her chronic pain. In addition to her CRPS symptoms (diagnosed 2010), she has some sto mach issues that she has been working with Ilene Childs DNP, FUNDRAISING ASSISTANT-C. She has a scar on her stomach [...] a lot of great improvements while in [place], [place]. 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 Goes to [employer] with a light load. Has been working at [employer], can' t work on [employer]. Has roommates. Allergies Allergen Reactions Morphine Anaphylaxis [...] by physician. Concentration is 150mg/mL. Compounded by [facility] ) LAMOTRIGINE 200 MG TABLET Take [...] GRAM-5.86 GRAM SOLUTION Take as directed by [facility]- 2 gallon bowel prep [...] and summary of old medical records (source: [employer]), as summarized in the body of the [...] to her by Christie Madrid MD in [place], [place]. As she has since left the practice, Ms. Amelie seth no longer has a prescriber for this [...] today. I jacqueline poon spoken with our medical illustrator, Evelia Gonzalez MD who agrees that as [...] peripheral nerve stimulation. As she lives in [place], [place] with her family (3.5 hours away), [...] by Sonia Key. Alex Sanchez MD PhD Woven Label Designer Anesthesiology and Pain Management Replaced By [facility] Post visit: I reviewed the UDS, [...] | + + + + + | [facility] | [address] | [place] [address] | | | SERVICES, CORE | GUILLERMO [...]
--- OUTSIDE RECORDS SUMMARY | ~2020-03-09 | XMS | Clinical Summary ---
Demographics + + + | Address | [address] | | | [place] [address] | + + + | Home Phone | | + + + | Preferred Language | Unknown | + + + | Marital Status | Single | + + + | Mormon Affiliation | 1073 | + + + | Race | Unknown | + + + | Ethnic Group | Unknown | + + + Author + + + | Author | [facility] | | | and [place] | + + + | Organization | [facility] | | | and [place] | + + + | Address | Unknown | + + + | Phone | Unavailable | + + + Support + + + + + | Name | Relationship | Address | Phone | + + + + + | Patricia Keller | ECON | [address] | | | | | [place] | | | | | [address] | | + + + + + | Bryant Farah | ECON | Unknown | | + + + + + Care Team Providers + +------+ + | Care Educational Institution President Name | Role | Phone | + +------+ + | Justo Vazquez MD | PCP | | + +------+ + Allergies Not on File Medications Not on file Active Problems Not on file Family History + + +------+ + | Medical History | Relation | Name | Comments | + + +------+ + | Hypertension | Father | | | + + +------+ + | Hypertension | Mother | | | + + +------+ + | Cancer | Other | | | + + +------+ + | Diabetes, NIDDM | Other | | | + + +------+ + | Stroke | Other | | | + + +------+ + + +------+--------+ + | Relation | Name | Status | Comments | + +------+--------+ + | Father | | | | + +------+--------+ + | Mother | | | | + +------+--------+ + | Other | | | | + +------+--------+ + Social History + +-------+ +--------+------+ | [...] recent travel history available. | + + Last Filed Vital Signs + + + + + | Vital Sign | Reading | Time Taken | Comments | + + + + + | Blood Pressure | 122/68 | 06/22/2016 8:36 PM | | | | | PDT | | + + + + + | Pulse | 72 | 06/22/2016 8:36 PM | | | | | PDT | | + + + + + | Temperature | 36.6 C (97.9 F) | 06/22/2016 8:36 PM | | | | | PDT | | + + + + + | Respiratory Rate | 16 | 06/22/2016 8:36 PM | | | | | PDT | | + + + + + | Oxygen Saturation | - | - | | + + + + + | Inhaled Oxygen | - | - | | | Concentration | | | | + + + + + | Weight | 69.3 kg (152 lb 12.5 | 06/22/2016 8:36 PM | | | | oz) | PDT | | + + + + + | Height | - | - | | + + + + + | Body Mass Index | - | - | | + + + + + Plan of Treatment + + + + + | Health Maintenance | Due Date | Last Done | Comments | + + + + + | Vaccine: | | | | | Dtap/Tdap/Td (1 - | 3 | | | | Tdap) | | | | + + + + + | Cervical Cancer | | | | | Screening (Pap) | 3 | | | + + + + + | Vaccine: Influenza | | | | | (Season Ended) | 0 | | | + + + + + Results Not on filefrom Last 3 Months Insurance + +--------+ +--------+ +---------+--------+ | Payer | Benefi | Subscriber | Effect | Phone | Address | Type | | | t Plan | ID | [place] | | | | | | / | | Dates | | | | | | Group | | | | | | + +--------+ +--------+ +---------+--------+ | MEDICARE | MEDICA | [id number] | 07/15/20 | [phone] | | Medica | | | RE | | 15-Pre | 5 | | re | | | PART A | | sent | | | | | | AND B | | | | | | + +--------+ +--------+ +---------+--------+ | [place] | MEDICA | [id number] | | [phone] | | Med[place] | | | [place] | | 017-Pr | 2 | | id | | | PLUS | | esent | | | | + +--------+ +--------+ +---------+--------+ + +--------+ +--------+ + + | Guarantor Name | Accoun | Relation to | Date | Phone | Billing Address | | | t Type | Patient | of | | | | | | | | | | + +--------+ +--------+ + + | Tracie Farah | Person | Self | [birth year] | [address] | | [place] | al/Fam | | 1990 | [phone] | [place] [address] | | | evita | | | [address] (Home) | | + +--------+ +--------+ + +"
--- OUTSIDE RECORDS SUMMARY | ~2020-03-09 | XMS | Encounter Summary ---
Demographics + + + | Address | [address] | | | [place] [address] | + + + | Home Phone [...] Author + + + | Author | [facility] | + + + | Organization | [facility] | + + + | Address | Unknown | + + + | Phone | Unavailable | + + + Support + + +---------+ + | Name | Relationship | Address | Phone | + + +---------+ + | Patricia Colin | ECON | Unknown | | + + +---------+ + Care Team Providers + +------+ + | Care Ballet Teacher Name | Role | Phone | + +------+ + | Justo Vazquez MD | PCP | | + +------+ + Encounter Details +--------+ + + + + | Date | Type | Department | Care Team | Description | +--------+ + + + + | 05/12/ | MyChart | [facility] Center at [facility] | Ewa Melchor, | RE: Schedule change | | 2017 | Encounter | [address] | APPLICATION SECURITY DEVELOPER [address] | | | | | Center for [facility] | [address] | | | | | and Healing Building | [place] [address] | | | | | 1, 15th Floor | [phone] | | | | | [place], [place] | | | | | | [address] | | | | | | [phone] | | | +--------+ + + + [...]
--- OUTSIDE RECORDS SUMMARY | ~2020-03-09 | XMS | Encounter Summary ---
Demographics + + + | Address | [address] | | | [place] [address] | + + + | Home Phone [...] Team Providers + +------+ + | Care Frothing Machine Operator Name | Role | Phone [...] | | | | | syndrome | [facility] | | | | | type [address] | [address] | Rd [place], | | | | | left lower | [facility], [place] | [place] | | | | | extremity | [address] | [address] | | | | | Procedures | Phone: | Phone: | | | | | REQUEST TO | [phone] | [phone] | | | | | SURGERY | Fax: | Fax: | | | | | AIR DEFENSE CONTROL OFFICER | [phone] | [phone] | +--------+---------+ + + + + Reason for Visit + + + | Reason | Comments | + + + | Back pain | | + + + | Low back pain | | + + + | Pain in left leg | | + + + | Knee pain | | + + + | Ankle pain | | + + + | Foot pain | | + + + Consultation (Routine) +--------+--------+ + + + + | Status | Reason | Specialty | Diagnoses / | Referred By | Referred To | | | | | Procedures | Contact | Contact | +--------+--------+ + + + + | Closed | | Pain | Diagnoses | [place], | Sdrulla, | | | | Management | Abdominal | MD Kenny | Alex Alba, | | | | | pain, | [address] | ,PhD [address] | | | | | unspecified | [address] | [address] | | | | | location | Rd | [address] | | | | | Procedures | [place], [place] | [place], | | | | | CONSULT TO | [address] | [place] | | | | | PAIN | | [address] | | | | | MANAGEMENT | | Phone: | | | | | | | [phone] | | | | | | | Fax: | | | | | | | [phone] | +--------+--------+ + + + + Encounter Details +--------+---------+ + + + | Date | Type | Department | Care Team | Description | +--------+---------+ + + + | 10/09/ | Office | [facility] | Alex Sanchez, | Complex regional | | 2018 | Visit | Pain Center at | ,PhD [address] | pain syndrome type 1 | | | | [facility] | [facility] [address] | of left lower | | | | [address] | [place], [place] | extremity (Primary | | | | [facility] | [address] | Dx) | | | | and Healing Building | [phone] | | | | | Floor | | | | | | [place], [place] | | | | | | [address] | | | | | | [phone] | | | +--------+---------+ + + + [...] + + + | Blood Pressure | 110/64 | 10/09/2018 10:44 AM | | | | | PST | | + + + + + | Pulse | 85 | 10/09/2018 10:44 AM | | | | | PST | | + + + + + | Temperature | - | - | | + + + + + | Respiratory Rate | 16 | 10/09/2018 10:44 AM | | | | | PST | | + + + + + | Oxygen Saturation | 100% | 10/09/2018 10:44 AM | | | | | PST | | + + + + + | Inhaled Oxygen | - | - | | | Concentration | | | | + + + + + | Weight | 74.8 kg (165 lb) | 10/09/2018 10:44 AM | | | | | PST | | + + + + + | Height | 162.6 cm (5' 4") | 10/09/2018 10:44 AM | | | | | PST | | + + + + + | Body Mass Index | 28.32 | 10/09/2018 10:44 AM | | | | | PST | | + + + + + documented in this encounter Patient Instructions Patient Instructions Sonia Key - 10/09/2018 10:00 AM Shona, Thank you for taking the time to see us in the [facility]. It was great to s ee you. Below is a summary of the discussion that we had today: - I have provided you with an external order to see a database management system specialist today. Please p resent this referral to your local wound care clinic. - The procedure we discussed today is DRG SCS implantation. Please see below for pre-proced ure instructions. The procedure you discussed with your doctor is called: DRG SCS IMPLANT LUMBAR [facility]. You will be called to schedule this once it has been approved by your insurance. PRE-PROCEDURE INSTRUCTIONS 1. Please bring a dolly driver with you as we may give you medications that impair your ability to drive. This is necessary even if you do not receive sedation. You may take a taxi or ri de the streetcar if you are accompanied by a responsible [...] or blood thinning medications (other than aspirin), [facility] doctor who is doing your procedure will communicate with the provider who is prescribing y our anticoagulant therapy. If you do not have clear instructions on what to do with your an ticoagulant by 2 weeks before your procedure, please contact [facility] to cl arify your instructions. The phone number for questions or concerns is [phone]. documented in this encounter Progress Notes Alex Sanchez MD,PhD - 10/09/2018 10:00 AM PSTI saw and evaluated the patient with Shakira Valerio, who conducted the initial history. I reviewed the history in detail a nd edited his note. I performed a physical examination and was present and participating in the formulation portion of the encounter. I agree with the findings and the plan of care as documented in our notes. Alex Sanchez MD,PhD [facility] NewcombElectronically signed by Alex Sanchez MD,PhD at 09/15 9:27 AM Smita Painter MA - 10/09/2018 10:00 AM PSTA History: 1. Has your pain changed from your last visit? decreased 2. Do your medications cause any side effects? NO 3. Have you had physical therapy appointments since your last visit? NO 4. Have you had psychology appointments since your last visit? NO 5. Have you had any diagnostic studies since your last appointment? NO 6. Do you require any medication refills today? NO ROS:. 1. BONES, JOINTS AND MUSCLES muscle pain 2. GASTROINTESTINAL SYSTEM negative 3. GENITOURINARY SYSTEM negative 4. NERVOUS SYSTEM negative 5. PSYCHIATRIC HISTORY sleep disturbance, decreased energy, concentration , fear of physi richard activity and social withdrawal Arben Person MD - 10/09/2018 10:00 AM PST [facility] Return Visit Date: 10/09/2018 Chief Complaint Patient presents with Back pain Low back pain Pain in left leg Knee pain Ankle pain Foot pain History of Present Illness: Tracie Farah is a 28 year old female, whose last appoi ntment at the [facility] was September 28, 2018, for a clinic visit with Yun Frey NP. At that time our plans were: Recommendations/Plan: 1. Recommend to keep her appointment with Dr. Sanchez on 10/02/2018. 2. To contact the [facility]'s rep if she has any further question on programming. Today, she complains of constant pain located in the bilateral low back and left lower leg. Her pain is made worse by any physical activity. Her pain is improved by rest and ketamine. This condition has improved since Ms. Farah's last visit. She does not have new pain com plaints on this visit. Ms. Farah reports that there have been no changes in her history s fahad the last appointment. Since her last visit, she reports developing a "bad wound" over her right lower back/buttoc k with suspected infection. She went into the emergency room in [place], [place] where they rem cady the leads. She has since been bandaging the area with gauze and managing the pain with Toradol cream. She has noticed improvement in her skin reaction, but ongoing pain to soft to uch. In regards to her DRG trial, she reports that her functionality improved stating that she w as able to sit with her dog leaned up against her leg which she was unable to do previously without significant pain. Her baseline pain decreased by 30-40% allowing her to go about her activities of daily living at a "tolerable" pain level. She states that she was able to sta nd on the hardwood floor at her dad's house which would previously cause her a lot of pain. In addition to improvements in her functionality, she reports that she was able to reduce th e amount of oral medications she needed to take to manage her pain. In other medical history, she reports that she previously had internal, dissolvable stitche s placed after her left ankle surgery. When they tried to remove them, her mother reports th at they began festering and caused her to develop an infection. However, she recovered well following her appendectomy which she suspects also used dissolvable stitches. MANAGING MEMBER Brief Pain Inventory: (ten= worst possible pain or complete interference) Right Now: 6 Least in 24 hours: 6 Worst in 24 hours: 7 Average: 5 % Relief (med/treat): 40 General Activity: 9 Mood: 6 Walking Ability: 8 Normal Work: 10 Relations with Others: 3 Enjoyment of Life: 9 Sexual Activity: 0 Sleep: 9 Past Medical History: Diagnosis Date Abdominal pain [...] Trial spinal cord stimulator leads 08/02/2012 [facility], Surgeon: Janak Riojas MD Cholecystectomy Appendectomy [...] History Social History Narrative Single. 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 Has been working at [employer], can' t work on [employer]. Has roommates. Allergies Allergen Reactions Morphine Anaphylaxis [...] the vein (IV) every eight hour s. 2047-0902-28 COMPOUNDED MED RX CONTROLLED (SEE ADMIN INSTRUCT [...] by physician. Concentration is 150mg/mL. Compounded by [employer] ) KETOROLAC IM Inject into the muscle [...] (IV) every twel ve hours as needed. 4173-2203-59 ONDANSETRON 4 MG DISINTEGRATING TABLET Dissolve 1 tablet in mouth every twelve hours as nee ded. PANTOPRAZOLE 40 MG TABLET,DELAYED RELEASE Take 40 mg by mouth once daily. PEG 3350-ELECTROLYTES 236 GRAM-22.74 GRAM-6.74 GRAM-5.86 GRAM SOLUTION Take as directed by [facility] Digestive Health- 2 gallon bowel prep POLYETHYLENE GLYCOL 3350 17 GRAM/DOSE ORAL POWDER Take 17 g by mouth once daily. PROMETHAZINE 12.5 MG TABLET Take 25 mg by mouth four times daily as needed for nausea/vomit ing. .5 tabs daily SUCRALFATE 1 GRAM TABLET Take 1 g by mouth four times daily. SULFAMETHOXAZOLE 800 MG-TRIMETHOPRIM 160 MG TABLET take 1 tablet by mouth twice a day for 1 0 days Radiology/Diagnostic Tests: Not Applicable Most Recent Labs: Not applicable Bones, Joints, and Muscles: muscle pain Gastrointestinal System: negative Genitourinary System: negative Nervous System: negative Psychiatric History: sleep disturbance, decreased energy, concentration , fear of physical activity and social withdrawal Physical Examination: BP 110/64 | Pulse 85 | RR 16 | Ht 1.626 m [...] dry. She is not diaphoretic. No erythema. Large area of erythema and irritation at the site of the adhesive dressing that is clearly demarcated. Psychiatric: Mood, memory, affect and judgment normal. [...] with nausea Abdominal pain Abdominal scar neuroma Visit Diagnoses: G90.522 Complex regional pain syndrome type 1 of left lower extremity For today's evaluation, I have included my personal review of Ms. Farah's history and ph ysical examination. I also used the following components in my medical decision making: Review and summary of old medical records (source: [employer]), as summarized in the body of the note. Impression: Ms. Tracie Farah is a 28 y.o. female with a history of CRPS of the lower extremity as well as abdominal pain associated with severe, cyclical nausea and vomiting. She was pre viously evaluated by an orthopedic surgeon who determined that surgical intervention was not indicated for removal of her left ankle hardware due to the development of scar tissue and rotation of the originally placed staple. As she is unable to pursue surgical interventions for her pain, we agreed that it was appropriate to proceed with plans for trial of DRG stimu lation. We performed DRG SCS trial with the [facility] System on 09/25/2018. Since her 2-day post-procedure follow-up on 09/28/2018, she reports developing skin irritat ion over the procedure area with reported erythema, pruritis, and drainage. As her symptoms were worsening and failed to improve, she presented to the ED on 10/07/2018. The leads were removed and she was given triamcinolone cream. Her mother reports that the redness has impro jessica since the leads were pulled over the weekend. This area was examined today and is consis tent with the shape and location of the adhesive dressing placed at the time of the procedur e, and there is little evidence to suspect cellulitis at this time. In regards to the DRG trial, she reports 30-40% improvement of her typical pain with signif icant improvement in her mobility and functionality, as well as drastic decrease in her medi cation intake. As she reports a very large improvement in her functional status, I believe t hat it is worthwhile to proceed with implantation of the DRG SCS device. We will minimize po st-procedure dressing to avoid another skin reaction. Of note, I called the patient's primary care to ensure she has follow up with skin care. Recommendation/Plan: - Recommend DRG SCS implant with the [employer] system, ordered - Call us if skin allergic reaction does not continue to heal or becomes worse. I, Sonia Key, am functioning as a scribe for Arben Valerio MD. I have reviewed and verified the above scribed note of my visit with this patient as record ed by Sonia Key. Arben Valerio MD [facility] [address] [facility] Mail Code: [id number] [place] [address] [phone] signed by Alex Sanchez MD,PhD at 10/10/2018 9:27 AM [facility] umented in this encounter Plan of Treatment Not on filedocumented as of this encounter Visit Diagnoses + + | Diagnosis | + + | Complex regional pain syndrome type 1 of left lower extremity - Primary | + + documented in this encounter
--- OUTSIDE RECORDS SUMMARY | ~2020-03-09 | XMS | Encounter Summary ---
Demographics + + + | Address | [address] | | | [place] [address] | + + + | Home Phone | | + + + | Preferred Language | Unknown | + + + | Marital Status | Single | + + + | Restorationist Affiliation | [id number] | + + + | Race | Unknown | + + + | Ethnic Group | Unknown | + + + Author + + + | Author | [facility] | | | and [place] | + + + | Organization | [facility] | | | and [place] | [...] [place] | | | | | [id number] | | + + + + + | Bryant Farah | ECON | Unknown | | + + + + + Care Team Providers + +------+ + | Care Radiology Supervisor Name | Role | Phone | + +------+ + PCP | Unavailable | + +------+ + Encounter Details +--------+ + + + + | Date | Type | Department | Care Team | Description | +--------+ + + + + | 03/20/ | Hospital | [facility] | Ulices Scott, | Reflex sympathetic | | 2013 - | Encounter | [facility] [address] | dystrophy of the | | | | [address] | lower limb; Chronic | | 03/22/ | | [place], [place] | [place] [address] | pain syndrome; | | 2012 | | [address] | [phone] | Complex regional | | | | [phone] | | pain syndrome of | | | | | | left lower extremity | +--------+ + + + + Social [...] + + documented as of this encounter Discharge Summaries Ulices Scott MD - 03/26/2013 12:18 PM PDTFormatting of this note might be different fr om the original. Discharge Summaries by Ulices Scott MD at 03/26/131217 Author: Ulices Scott MD Service: Interventional Pain Management Author Type: Physic deya Filed: 03/26/138 Date of Service: 03/26/131217 Status: Signed Animal Care Assistant: Ulices Scott MD (Physician) Discharge summary Admitting physician: Ulices Scott M.D. Admission diagnosis: 1. Chronic pain syndrome 2. Complex regional pain syndrome Discharge diagnoses: Same Procedures during admission: Percutaneous placement of intrathecal catheter for trial of in trathecal pain medications. Complications: None apparent Condition ON discharge: Stable Hospital course: This patient has a long history of lower extremity complex regional pain s yndrome. This has failed all conservative therapies including oral medications. The patient currently is on oral narcotics with an equivalent daily dose of about 200 mg morphine equiva lence per day. This does not adequately controlled her pain. The patient has been tried on o ther neuropathic pain medications as well without adequate relief. She previously has underg one a trial of dorsal column spinal cord stimulation at [facility]. T his also failed to provide adequate pain control. As the patient had failed all other measur es she was a candidate for a trial of intrathecal pain medications for control of her chroni c intractable pain. She was therefore admitted to the hospital and an intrathecal catheter w as placed under fluoroscopic guidance an outpatient procedures. She was then admitted to the surgical floor for infusion of pain medications. Initially hydromorphone was used alone. Th is dose was titrated up slowly but did not give significant pain control. Her intrathecal in fusion was therefore changed to a mixture containing both intrathecal bupivacaine and intrat hecal hydromorphone. This was titrated up to her the patient was on a total dose given her a pproximately 12 mg per day of intrathecal bupivacaine and 0.72 mg per day of intrathecal hyd romorphone. This dose of hydromorphone would be expected to give the pain relieving effects of approximately 1500 mg equivalence of morphine. He that these very significant doses of saleem th bupivacaine and hydromorphone the patient had no appreciable decrease in her lower extrem ity pain. She did have some lower extremity edema due to the effects of the intrathecal bupi vacaine causing vasodilatation but otherwise had no other complications. As the patient did not have significant pain relief on your maximal doses of intrathecal bu pivacaine and very significant doses of intrathecal hydromorphone this is a failed trial of intrathecal pain medications for pain control. The trial was therefore stopped and the intra thecal catheter was removed intact. The patient was kept supine for 12 hours after removal o f the catheter and then discharged home in stable condition. She will follow-up with her [facility] physician for continued medical management. She can also contact my office on an a s needed basis for reevaluation. documented in this encounter Progress Notes Conversion Transaction, Provider Unknown - 03/22/2013 7:21 PM PDTFormatting of this note m ight be different from the original. Progress Notes by Ava Carolina RN at 03/22/131920 Author: Ava Carolina RN Service: (none) Author Type: Registered Nurse Filed: 03/22/131929 Date of Service: 03/22/131920 Status: Signed Animal Care Assistant: Ava Carolina RN (Registered Nurse) Patient tolerated HOB elevated to 60 degrees at 1840. Patient tolerated standing without any dizziness, or nausea/vomiting. Patient c/o a mild headache, but denies any headache gladys t gets worse with sitting or standing. Patient able to tolerate a regular diet without nause a or vomiting. Patient did however, have one episode of vomitus, but likely due to oral narc otics without the presence of food, as patient has had a poor appetite today. Patient denies numbness or tingling of the legs. Patient is voiding quantity sufficient without difficulty . No bleeding or pain at the intrathecal site noted. AVA CAROLINA RN 03/22/2013 7:29 PM onver christiano Transaction, Provider Unknown - 03/22/2013 6:55 PM PDT Progress Notes by Ava Carolina RN at 03/22/131854 Author: Ava Carolina RN Service: (none) Author Type: Registered Nurse Filed: 03/22/131854 Date of Service: 03/22/131854 Status: Signed Animal Care Assistant: Ava Carolina RN (Registered Nurse) Discharge teaching done, instructions given. Pt states understanding. Medications discussed , no questions or concerns. Pt instructed to wear WILIAM hose at home until cleared by and aspen villatoro instructions and diet for anti-coag therapy. Pt instructed to contact MD with any conc erns or if signs/symptoms re-occur that were associated with this hospitalization. AVA CAROLINA RN 03/22/2013 6:55 PM Ulices Hunter MD - 03/22/2013 6:52 AM PDT Progress Notes by Ulices Scott MD at 03/22/13651 Author: Ulices Scott MD Service: Interventional Pain Management Author Type: Physic deya Filed: 03/22/13656 Date of Service: 03/22/13651 Status: Signed Animal Care Assistant: Ulices Scott MD (Physician) [facility] Service: Interventional Pain Management Pre-Operative History & Physical Interval Update Patient now up to 0.72 mg intrathecal hydromorphone and 11.5 mg/ day intrathecal bupivacain e with no significant decrease in her left leg pain. At this point I doon't feel intrathecal pain medications are going to work to control this patients pain. The trial is therefore st opped and the catheter was removed intact. She will be kept supine for 12 hours then dischar ged home. ULICES SCOTT MD 03/22/2013 *CORE MEASURES REMINDER: If the patient has a known or suspected infection prior to surger y, please add diagnosis to the problem list (consider: Infection 136.9). onversion Transact ion, Provider Unknown - 03/21/2013 10:32 AM PDTFormatting of this note might be different fr om the original. Progress Notes by JUSTIN Ospina at 03/21/13 1032 Author: JUSTIN Ospina Service: (none) Author Type: Stone Lathe Operator Filed: 03/21/13 1036 Date of Service: 03/21/13 103 Status: Addendum Animal Care Assistant: JUSTIN Ospina (Stone Lathe Operator) Related Notes: Original Note by JUSTIN Ospina (Stone Lathe Operator) filed at 03/21/13 1 036 Met w/22yo F Pt who lives w/parents in [place], [place]. Pt lives in two story house that has 1-2 steps to get into. Pt is usually able to ambulate very little d/t pain. She has been abl e to get to bathroom and back. Pt explains that she has crutches, walker, and cane at home i f needed. She is aware how to get a WC. Pt explains that she is able to crawl up and down st airs and has no falls at home. Pt's mother will transport home. Pt has info for [employer]. lices Brock MD - 03/21/2013 7:27 AM PDT Progress Notes by Ulices Scott MD at 03/21/13726 Author: Ulices Scott MD Service: Interventional Pain Management Author Type: Physic deya Filed: 03/21/1335 Date of Service: 03/21/13726 Status: Signed Animal Care Assistant: Ulices Scott MD (Physician) [facility] Service: Interventional Pain Management Pre-Operative History & Physical Interval Update Continued severe pain at 0.576 mg intrathecal hydromorphone. Dip in BP this AM so will not increase hydromophone but will add bupivacaine to intrathecal medication. I will also statrt some oral oxycodone to prevent withdrawal. ULICES SCOTT MD 03/21/2013 *CORE MEASURES REMINDER: If the patient has a known or suspected infection prior to surger y, please add diagnosis to the problem list (consider: Infection 136.9). onversion Transact ion, Provider Unknown - 03/21/2013 6:40 AM PDTFormatting of this note might be different fr om the original. Progress Notes by Darlin Orlando RN at 03/21/1340 Author: Darlin Orlando RN Service: (none) Author Type: Registered Nurse Filed: 03/21/1346 Date of Service: 03/21/13 0640 Status: Signed Animal Care Assistant: Darlin Orlando, RN (Registered Nurse) Pt had no changes in pain level during night, but was able to sleep and had to be awaken fo r vitals and pain assessments. With 0400 vitals. Pt's BP dropped to 90/43. BP reassessed and was 88/42. Explained to patient and family reason for not being able to increase intratheca l pump due to BP until MD was contacted. Dr. Soctt notified of pt's BP and pain level and orders received and implemented. Pt is currently resting in bed and states she is "Okay". Wi ll continue to monitor. docume nted in this encounter Plan of Treatment Not on filedocumented as of this encounter Procedures + +--------+ + + + | Procedure Name | Priori | Date/Time | Associated Diagnosis | Comments | | | ty | | | | + +--------+ + + + | FL C ARM < 1 HOUR | Routin | 03/20/2013 | | Results for this | | | e | 11:13 AM | | procedure are in the | | | | PDT | | results section. 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
--- OUTSIDE RECORDS SUMMARY | ~2020-03-09 | XMS | Encounter Summary ---
Demographics + + + | Address | [address] | | | [place] [address] | + + + | Home Phone | | + + + | Preferred Language | Unknown | + + + | Marital Status | Single | + + + | Mormon Affiliation | [id number] | + + + | Race | Unknown | + + + | Ethnic Group | Unknown | + + + Author + + + | Author | [facility] | | | and [place] | + + + | Organization | [facility] | | | and [place] [...] [place] | | | | | [address] | | + + + + + | Bryant Farah | ECON | Unknown | | + + + + + Care Team Providers + +------+ + | Care Tomato Paste Maker Name | Role | Phone | + +------+ + PCP | Unavailable | + +------+ + Encounter Details +--------+ + + + + | Date | Type | Department | Care Team | Description | +--------+ + + + + | 06/22/ | Emergency | [facility] | [facility] | Nondiabetic | | 2016 | | [facility] | [address] | gastroparesis | | | | EM[facility] CENTER | [address] | | | | | [address] | [place], [place] | | | | | [place], [place] | [address] | | | | | [address] | [phone] | | | | | [phone] | | | +--------+ + + + [...] + + + documented in this encounter Plan of Treatment Not on filedocumented as of this encounter Procedures + +--------+ + + + | Procedure Name | Priori | Date/Time | Associated Diagnosis | Comments | | | ty | | | | + +--------+ + + + | EXTERNAL LAB: CBC | Routin | 06/22/2016 | | Results for this | | | e | 6:51 PM | | procedure are in the | | | | PDT | | results section. | + +--------+ + + + | C-REACTIVE PROTEIN | Routin | 06/22/2016 | | Results for this | | | e | 6:51 PM | | procedure are in the | | | | PDT | | results section. | + +--------+ + + + | PHOSPHORUS | Routin | 06/22/2016 | | Results for this | | | e | 6:51 PM | | procedure are in the | | | | PDT | | results section. | + +--------+ + + + | MAGNESIUM | Routin | 06/22/2016 | | Results for this | | | e | 6:51 PM | | procedure are in the | | | | PDT | | results section. | + +--------+ + + + | LIPASE | Routin | 06/22/2016 | | Results for this | | | e | 6:51 PM | | procedure are in the | | | | PDT | | results section. | + +--------+ + + + | LACTIC ACID | Routin | 06/22/2016 | | Results for this | | | e | 6:51 PM | | procedure are in the | | | | PDT | | results section. | + +--------+ + + + | AMYLASE | Routin | 06/22/2016 | | Results for this | | | e | 6:51 PM | | procedure are in the | | | | PDT | | results section. | + +--------+ + + + | COMPREHENSIVE | Routin | 06/22/2016 | | Results for this | | METABOLIC PANEL | e | 6:51 PM | | procedure are in the | | | | PDT | | results section. | + +--------+ + + + | URINALYSIS, REFLEX | Routin | 06/22/2016 | | Results for this | | MICROSCOPIC AND/OR | e | 6:49 PM | | procedure are in the | | CULTURE | | PDT | | results section. | + +--------+ + + + | HCG, URINE, QUAL | Routin | 06/22/2016 | | Results for this | | | e | 6:49 PM | | procedure are in the | | | | PDT | | results section. | + +--------+ + + + documented in this encounter Results External Lab: CBC (06/22/2016 6:51 PM PDT) + + + + + + | Component | Value | Ref Range | Performed | Pathologist | | | | | At | Signature | + + + + + + | WBC | 10.50Comment: Testing | 3.80 - 11.00 | EXTERNAL | | | | performed at [facility];[address] | K/uL | LAB | | | | [address];[place] | | | | | | [address] | | | | + + + + + + | Red Blood | 4.46Comment: Testing | 3.70 - 5.10 | EXTERNAL | | | Cells | performed at [facility];[address] | M/uL | LAB | | | Counted | [address];[place] | | | | | | [address] | | | | + + + + + + | Hemoglobin | 13.9Comment: Testing | 11.3 - 15.5 | EXTERNAL | | | | performed at [facility];888 | g/dL | LAB | | | | [address];[place] | | | | | | [address] | | | | + + + + + + | Hematocrit, | 41.0Comment: Testing | 34.0 - 46.0 % | EXTERNAL | | | POC | performed at [facility];[address] | | LAB | | | | [address];[place] | | | | | | [address] | | | | + + + + + + | MCV | 91.9Comment: Testing | 80.0 - 100.0 fl | EXTERNAL | | | | performed at [facility];[address] | | LAB | | | | [address];[place] | | | | | | [address] | | | | + + + + + + | MCH | 31.1Comment: Testing | 27.0 - 34.0 pg | EXTERNAL | | | | performed at [facility];[address] | | LAB | | | | [address];[place] | | | | | | [address] | | | | + + + + + + | MCHC | 33.9Comment: Testing | 32.0 - 35.5 | EXTERNAL | | | | performed at [facility];888 | g/dL | LAB | | | | [address];[place] | | | | | | [address] | | | | + + + + + + | RDW-CV | 40.3Comment: Testing | 37 - 53 fl | EXTERNAL | | | | performed at [facility];[address] | | LAB | | | | [address];[place] | | | | | | [address] | | | | + + + + + + | Platelet | 203Comment: Testing | 150 - 400 K/uL | EXTERNAL | | | Count | performed at [facility];[address] | | LAB | | | Plasma | [address];[place] | | | | | | [address] | | | | + + + + + + | MPV | 8.3Comment: Testing | fl | EXTERNAL | | | | performed at [facility];[address] | | LAB | | | | [address];[place] | | | | | | [address] | | | | + + + + + + | Differentia | AUTOMATEDComment: | | EXTERNAL | | | l Type | Testing performed at | | LAB | | | | [facility];[address];[place] [address] | | | | + + + + + + | % Segmented | 65.86Comment: Testing | % | EXTERNAL | | | | performed at [facility];[address] | | LAB | | | Neutrophils | [address];[place] | | | | | | [address] | | | | + + + + + + | % | 25.52Comment: Testing | % | EXTERNAL | | | Lymphocytes | performed at [facility];[address] | | LAB | | | | [address];[place] | | | | | | [address] | | | | + + + + + + | % Monocytes | 6.38Comment: Testing | % | EXTERNAL | | | | performed at [facility];[address] | | LAB | | | | [address];[place] | | | | | | [address] | | | | + + + + + + | % | 1.61Comment: Testing | % | EXTERNAL | | | Eosinophils | performed at [facility];[address] | | LAB | | | | [address];[place] | | | | | | [address] | | | | + + + + + + | % Basophils | 0.63Comment: Testing | % | EXTERNAL | | | | performed at [facility];[address] | | LAB | | | | [address];[place] | | | | | | [address] | | | | + + + + + + | Absolute | 6.91Comment: Testing | 1.90 - 7.40 | EXTERNAL | | | Segmented | performed at [facility];[address] | K/uL | LAB | | | Neutrophils | [address];[place] | | | | | | [address] | | | | + + + + + + | Absolute | 2.68Comment: Testing | 1.00 - 3.90 | EXTERNAL | | | Lymphocytes | performed at [facility];[address] | K/uL | LAB | | | | [address];[place] | | | | | | [address] | | | | + + + + + + | Absolute | 0.67Comment: Testing | 0.00 - 0.80 | EXTERNAL | | | Monocytes | performed at [facility];[address] | K/uL | LAB | | | | [address];[place] | | | | | | [address] | | | | + + + + + + | Absolute | 0.17Comment: Testing | 0.00 - 0.50 | EXTERNAL | | | Eosinophils | performed at [facility];[address] | K/uL | LAB | | | | [address];[place] | | | | | | [address] | | | | + + + + + + | Absolute | 0.07Comment: Testing | 0.00 - 0.10 | EXTERNAL | | | Basophils | performed at [facility];[address] | K/uL | LAB | | | | [address];[place] | | | | | | [address] | | | | + + + + + + + + | Specimen | + + | Blood specimen | | (specimen) | + + + +---------+ + + | Performing | Address | City/State/Zipcode | Phone Number | | Organization | | | | + +---------+ + + | EXTERNAL LAB | | | | + +---------+ + + C-Reactive Protein (06/22/2016 6:51 PM PDT) + + + + + + | Component | Value | Ref Range | Performed | Pathologist | | | | | At | Signature | + + + + + + | CRP | <0.3Comment: Testing | mg/dL | EXTERNAL | | | | performed at [facility] | | LAB | | | | [facility] | | | | | | [address] | | | | + + + + + + + + | Specimen | + + | Blood specimen | | (specimen) | + + + +---------+ + + | Performing | Address | City/State/Zipcode | Phone Number | | Organization | | | | + +---------+ + + | EXTERNAL LAB | | | | + +---------+ + + Phosphorus (06/22/2016 6:51 PM PDT) + + + + + + | Component | Value | Ref Range | Performed | Pathologist | | | | | At | Signature | + + + + + + | PHOSPHORUS | 3.6Comment: Testing | 2.3 - 4.8 mg/dL | EXTERNAL | | | | performed at [facility] | | LAB | | | | [address];[place], [place] | | | | | | [address] | | | | + + + + + + + + | Specimen | + + | Blood specimen | | (specimen) | + + + +---------+ + + | Performing | Address | City/State/Zipcode | Phone Number | | Organization | | | | + +---------+ + + | EXTERNAL LAB | | | | + +---------+ + + Magnesium (06/22/2016 6:51 PM PDT) + + + + + + | Component | Value | Ref Range | Performed | Pathologist | | | | | At | Signature | + + + + + + | Magnesium | 2.1Comment: SLT | 1.7 - 2.4 mg/dL | EXTERNAL | | | | HEMOLYSISTesting | | LAB | | | | performed at [facility];[address] | | | | | | [address];[place] | | | | | | [address] | | | | + + + + + + + + | Specimen | + + | Blood specimen | | (specimen) | + + + +---------+ + + | Performing | Address | City/State/Zipcode | Phone Number | | Organization | | | | + +---------+ + + | EXTERNAL LAB | | | | + +---------+ + + Lipase (06/22/2016 6:51 PM PDT) + + + + + + | Component | Value | Ref Range | Performed | Pathologist | | | | | At | Signature | + + + + + + | Lipase | 103Comment: Testing | 73 - 393 U/L | EXTERNAL | | | | performed at [facility];[address] | | LAB | | | | [address];[place] | | | | | | [address] | | | | + + + + + + + + | Specimen | + + | Blood specimen | | (specimen) | + + + +---------+ + + | Performing | Address | City/State/Zipcode | Phone Number | | Organization | | | | + +---------+ + + | EXTERNAL LAB | | | | + +---------+ + + Lactic Acid (06/22/2016 6:51 PM PDT) + + + + + + | Component | Value | Ref Range | Performed | Pathologist | | | | | At | Signature | + + + + + + | Lactate | 1.2Comment: Testing | 0.4 - 2.0 | EXTERNAL | | | | performed at [facility];888 | mmol/L | LAB | | | | [address];[place] | | | | | | [address] | | | | + + + + + + + + | Specimen | + + | Blood specimen | | (specimen) | + + + +---------+ + + | Performing | Address | City/State/Zipcode | Phone Number | | Organization | | | | + +---------+ + + | EXTERNAL LAB | | | | + +---------+ + + Amylase (06/22/2016 6:51 PM PDT) + + + + + + | Component | Value | Ref Range | Performed | Pathologist | | | | | At | Signature | + + + + + + | Amylase | 39Comment: Testing | 25 - 115 U/L | EXTERNAL | | | | performed at [facility];[address] | | LAB | | | | [address];[place], [place] | | | | | | [address] | | | | + + + + + + + + | Specimen | + + | Blood specimen | | (specimen) | + + + +---------+ + + | Performing | Address | City/State/Zipcode | Phone Number | | Organization | | | | + +---------+ + + | EXTERNAL LAB | | | | + +---------+ + + Comprehensive Metabolic Panel (06/22/2016 6:51 PM PDT) + + + + + + | Component | Value | Ref Range | Performed | Pathologist | | | | | At | Signature | + + + + + + | Na | 139Comment: Testing | 135 - 145 | EXTERNAL | | | | performed at [facility];888 | mmol/L | LAB | | | | [address];[place] | | | | | | [address] | | | | + + + + + + | K | 3.8Comment: Testing | 3.5 - 4.9 | EXTERNAL | | | | performed at [facility];888 | mmol/L | LAB | | | | [address];[place] | | | | | | [address] | | | | + + + + + + | Cl | 104Comment: Testing | 99 - 109 mmol/L | EXTERNAL | | | | performed at [facility];[address] | | LAB | | | | [address];[place] | | | | | | [address] | | | | + + + + + + | CO2 | 27Comment: Testing | 23 - 32 mmol/L | EXTERNAL | | | | performed at [facility];[address] | | LAB | | | | [address];[place] | | | | | | [address] | | | | + + + + + + | Anion Gap | 12Comment: Testing | 5 - 20 mmol/L | EXTERNAL | | | | performed at [facility];[address] | | LAB | | | | [address];[place] | | | | | | [address] | | | | + + + + + + | Glucose, | 80Comment: Testing | 65 - 99 mg/dL | EXTERNAL | | | Fasting | performed at [facility];[address] | | LAB | | | | [address];[place] | | | | | | [address] | | | | + + + + + + | BUN | 4 (L)Comment: Testing | 8 - 25 mg/dL | EXTERNAL | | | | performed at [facility];[address] | | LAB | | | | [address];[place] | | | | | | [address] | | | | + + + + + + | Creatinine | 0.83Comment: Testing | 0.50 - 1.00 | EXTERNAL | | | | performed at [facility];888 | mg/dL | LAB | | | | [address];[place] | | | | | | [address] | | | | + + + + + + | BUN/Creatin | 5Comment: Testing | | EXTERNAL | | | ine Ratio | performed at [facility];[address] | | LAB | | | | [address];[place] | | | | | | [address] | | | | + + + + + + | Calcium | 9.1Comment: Testing | 8.5 - 10.5 | EXTERNAL | | | | performed at [facility];888 | mg/dL | LAB | | | | [address];[place] | | | | | | [address] | | | | + + + + + + | Protein, | 7.4Comment: Testing | 6.3 - 8.2 g/dL | EXTERNAL | | | Total | performed at [facility];[address] | | LAB | | | | [address];[place] | | | | | | [address] | | | | + + + + + + | Albumin | 4.5Comment: Testing | 3.6 - 5.0 g/dL | EXTERNAL | | | | performed at [facility];[address] | | LAB | | | | [address];[place] | | | | | | [address] | | | | + + + + + + | Globulin | 3.0Comment: Testing | 1.3 - 4.9 g/dL | EXTERNAL | | | | performed at [facility];[address] | | LAB | | | | [address];[place] | | | | | | [address] | | | | + + + + + + | A/G Ratio | 1.5Comment: Testing | 1.0 - 2.4 | EXTERNAL | | | | performed at [facility];[address] | | LAB | | | | [address];[place] | | | | | | [address] | | | | + + + + + + | Bilirubin | 0.6Comment: Testing | 0.1 - 1.5 mg/dL | EXTERNAL | | | Total | performed at [facility];[address] | | LAB | | | | [address];[place] | | | | | | [address] | | | | + + + + + + | ALP, | 61Comment: Testing | 35 - 115 U/L | EXTERNAL | | | External | performed at [facility];[address] | | LAB | | | | [address];[place] | | | | | | [address] | | | | + + + + + + | AST | 7 (L)Comment: Testing | 10 - 45 U/L | EXTERNAL | | | | performed at [facility];[address] | | LAB | | | | [address];[place] | | | | | | [address] | | | | + + + + + + | ALT | 20Comment: Testing | 10 - 65 U/L | EXTERNAL | | | | performed at [facility];[address] | | LAB | | | | [address];[place] | | | | | | [address] | | | | + + + + + + | Estimated | >60Comment: GFR <60: | mL/min/1.73m2 | EXTERNAL | | | GFR | CHRONIC KIDNEY DISEASE, | | LAB | | | | IF FOUND OVER A 3 MONTH | | | | | | PERIOD.GFR <15: KIDNEY | | | | | | FAILURE.FOR | | | | | | AMERICANS, MULTIPLY THE | | | | | | CALCULATED GFR BY | | | | | | 1.210.Testing performed | | | | | | at [facility];[address] | | | | [address];[place] [address] | | | | + + + + + + + + | Specimen | + + | Blood specimen | | (specimen) | + + + +---------+ + + | Performing | Address | City/State/Zipcode | Phone Number | | Organization | | | | + +---------+ + + | EXTERNAL LAB | | | | + +---------+ + + Urinalysis, Reflex Microscopic and/or Culture (06/22/2016 6:49 PM PDT) + + + + + + | Component | Value | Ref Range | Performed | Pathologist | | | | | At | Signature | + + + + + + | Color | STRAWComment: Testing | | EXTERNAL | | | | performed at [facility];[address] | | LAB | | | | [address];[place] | | | | | | [address] | | | | + + + + + + | Clarity | CLEARComment: Testing | | EXTERNAL | | | | performed at [facility];[address] | | LAB | | | | [address];[place] | | | | | | [address] | | | | + + + + + + | Specific | 1.005Comment: Testing | 1.002 - 1.030 | EXTERNAL | | | [place], | performed at [facility];[address] | | LAB | | | Urine | [address];[place] | | | | | | [address] | | | | + + + + + + | Leukocyte | NEGATIVEComment: Testing | | EXTERNAL | | | Esterase, | performed at [facility];[address] | | LAB | | | Urine | [address];[place] | | | | | | [address] | | | | + + + + + + | Nitrite, | NEGATIVEComment: Testing | | EXTERNAL | | | Urine | performed at [facility];[address] | | LAB | | | | [address];[place] | | | | | | [address] | | | | + + + + + + | Urobilinoge | NORMALComment: Testing | mg/dL | EXTERNAL | | | n, Urine | performed at [facility];[address] | | LAB | | | | [address];[place] | | | | | | [address] | | | | + + + + + + | Protein, | NEGATIVEComment: Testing | mg/dL | EXTERNAL | | | Urine | performed at [facility];[address] | | LAB | | | | [address];[place] | | | | | | [address] | | | | + + + + + + | pH, Urine | 7.0Comment: Testing | 5.0 - 8.0 | EXTERNAL | | | | performed at [facility];[address] | | LAB | | | | [address];[place] | | | | | | [address] | | | | + + + + + + | Blood, | NEGATIVEComment: Testing | | EXTERNAL | | | Urine | performed at [facility];[address] | | LAB | | | | [address];[place] | | | | | | [address] | | | | + + + + + + | Ketones | NEGATIVEComment: Testing | mg/dL | EXTERNAL | | | | performed at [facility];[address] | | LAB | | | | [address];[place] | | | | | | [address] | | | | + + + + + + | Bilirubin, | NEGATIVEComment: Testing | | EXTERNAL | | | Urine | performed at [facility];[address] | | LAB | | | | [address];[place] | | | | | | [address] | | | | + + + + + + | Glucose, | NEGATIVEComment: Testing | mg/dL | EXTERNAL | | | Urine | performed at [facility];[address] | | LAB | | | | [address];[place], [place] | | | | | | [address] | | | | + + + + + + + + | Specimen | + + | | + + + +---------+ + + | Performing | Address | City/State/Zipcode | Phone Number | | Organization | | | | + +---------+ + + | EXTERNAL LAB | | | | + +---------+ + + , Urine, Qual (06/22/2016 6:49 PM PDT) + + + + + + | Component | Value | Ref Range | Performed | Pathologist | | | | | At | Signature | + + + + + + | Preg Test, | NEGATIVEComment: Testing | | EXTERNAL | | | Ur | performed at [facility] | | LAB | | | | [address];[place], [place] | | | | | | [address] | | | | + + + + + + + + | Specimen | + + | Urine specimen | | (specimen) | + + + +---------+ + + | Performing | Address | City/State/Zipcode | Phone Number | | Organization | | | | + +---------+ + + | EXTERNAL LAB | | | | + +---------+ + + documented in this encounter Visit Diagnoses + + | Diagnosis | + + | Nondiabetic gastroparesis Gastroparesis | + + documented in this encounter"
--- OUTSIDE RECORDS SUMMARY | ~2020-03-09 | XMS | Encounter Summary ---
Demographics + + + | Address | [address] | | | [place] [address] | + + + | Home Phone [...] Team Providers + +------+ + | Care Physician Relations Specialist Name | Role | Phone | + +------+ + | Justo Vazquez MD | PCP | | + +------+ + Encounter Details +--------+ + + + + | Date | Type | Department | Care Team | Description | +--------+ + + + + | 01/09/ | Documentati | Orthopaedics | Ranjeet Amanda, | | | 2018 | on | [facility] at [facility] | [address] | | | | | for Health and | [place], [place] | | | | | Healing [address] | [address] | | | | | [address] [facility] for | [phone] | | | | | Health and Healing, | | | | | | | | | | | | floor [place], [place] | | | | | | [address] | | | | | | [phone] | | | +--------+ + + + [...]
--- OUTSIDE RECORDS SUMMARY | ~2020-03-09 | XMS | Encounter Summary ---
Demographics + + + | Address | [address] | | | [place] [address] | + + + | Home Phone | | + + + | Preferred Language | Unknown | + + + | Marital Status | Single | + + + | Judaism Affiliation | FMD | + + + | Race | White | + + + | Ethnic Group | Not or | + + + Author + + + | Author | [facility] | + + + | Organization | [facility] | + + + | Address | Unknown | + + + | Phone | Unavailable | + + + Support + + +---------+ + | Name | Relationship | Address | Phone | + + +---------+ + | Patricia Colin | ECON | Unknown | | + + +---------+ + Care Team Providers + +------+ + | Care Financial Investigator Name | Role | Phone | + +------+ + | Allegra Chaudhary | PCP | | + +------+ + Encounter Details +--------+ + + + + | Date | Type | Department | Care Team | Description | +--------+ + + + + | 01/17/ | Document-Sc | UNKNOWN DEPARTMENT | Unknown . | | | 2013 | anned | [address] | | | | | | [address] | | | | | | [place], [place] | | | | | | [address] | | | +--------+ + + + [...] + + + | RADIOLOGY | | 01/17/2014 | | Results for this | | | | 12:00 AM | | procedure are in the | | | | PST | | results section. | + +--------+ + + + documented in this encounter Results RADIOLOGY (01/17/2014 12:00 AM PST) + + + | Narrative | Performed At | + + + | | | + + + documented in this encounter Visit Diagnoses Not on filedocumented in this encounter"
--- OUTSIDE RECORDS SUMMARY | ~2020-03-09 | XMS | Encounter Summary ---
Demographics + + + | Address | [address] | | | [place] [address] | + + + | Home Phone | | + + + | Preferred Language | Unknown | + + + | Marital Status | Single | + + + | Sikh Affiliation | FMD | + + + [...] Team Providers + +------+ + | Care Blood Bank Laboratory Professional Name | Role | Phone | + +------+ + | Justo Vazquez MD | PCP | | + +------+ + Encounter Details +--------+ + + + + | Date | Type | Department | Care Team | Description | +--------+ + + + + | 10/09/ | Telephone | [facility] | Alex Sanchez, | | | 2018 | | [facility] at | ,PhD [address] | | | | | [facility] | [address] | | | | | [address] | [place], [place] | | | | | [place] [facility] | [address] | | | | | and [facility] | [phone] | | | | | [address] | | | | | | [place], [place] | | | | | | [address] | | | | | | [phone] | | | +--------+ + + + [...]
--- OUTSIDE RECORDS SUMMARY | ~2020-03-09 | XMS | Encounter Summary ---
Demographics + + + | Address | [address] | | | [place] [address] | + + + | Home Phone [...] Team Providers + +------+ + | Care Oracle Programmer Analyst Name | Role | Phone | [...] + + | 10/21/ | Hospital | [place] [address] [address] | [place], | | | 2015 - | Encounter | [facility] | MD Tala [address] | | | | | [address] [place] [address] | [facility] | | | 10/25/ | | [place], [place] | [place], [place] | | | 2014 | | [address] | [address] | | | | | [phone] | [phone] | | | | | | | | | | | | Clifton Childers | | | | | | MD Nhan [address] [facility] | | | | | | [facility] | | | | | | [place], [place] | | | | | | [address] | | | | | | [phone] | | | | | | | [...] child. Followed by Dr. Katy berrios at [facility] in [place], [place]. Has been on a stable regimen for [...] agreeable with our plans. Clifton Childers MD Senior Energy Consultant Division of Hospital Medicine Teaching Attending I [...] child. Followed by Dr. Katy berrios at [facility] in [place], [place], has been on a stable regimen for the past few years (intra nasal ketamine, lamictal, memantine, ibuprofen). APS consulted and they feel that it is unli rosei that these are causing her abdominal s/s, [...] and plan. Lolita Ma MD, MPH Pager #[phone] PGY-1, Anesthesiology [facility] Associated attestation - Clifton Childers MD [...] agreeable with our plans. Clifton Childers MD Senior Energy Consultant Division of Hospital Medicine Teaching Attending I [...] INRPT 1.06 10/21/[address] pending ubha aM M D - 10/23/2015 12:58 PM PST [...] child. Followed by Dr. Katy berrios at [facility] in [place], [place], has been on a stable regimen for [...] and plan. Lolita Ma MD, MPH Pager #[phone] PGY-1, Anesthesiology [facility] Associated attestation - Clifton Childers MD [...] history, primarily secondary to [facility] of complicated ankle fracture age [...] would like the patient to establish in skilled nursing counseling and/or CBT as an outpatient if willing. Patient/Family Goals & Expectations: Above problems discussed with the patient who understands and is agreeable with our plans. Clifton Childers MD Senior Energy Consultant Division of Hospital Medicine Teaching Attending I [...] to CRPS. Since her last evaluation, Melissa Faarh reports that her pain has decreased. Her [...] good coping mechanism Heme/Lymphatic: negative Endocrine: negative Medical Collections Specialist: negative Past Medical History: History of chronic [...] for he r CRPS in the pastm [facility] pharmacy does not carry this so we are trying to arrange for her to take her home medication via pharmacy approval 5. APS will sign off but please call with questions/concerns Aba Dorman MD, PGY 3 Cooler Tender [place]-2 APS Pager: [phone] BILLING INFORMATION Deferred to attending physician. Ms. [...] up at this point. Please contact APS (#[id number]) if further assistance is needed. Ulices Lopez MD BILLING INFORMATION [facility] DEPARTMENT: [phone] Place of Service:- Inpatient Date of Service: 10/23/2015 CSN: [id number] Suggested Modifier: GC - Resident Involved Suggested CPT: 60569 - Follow up visit (includes PNB) - [...] today recd call from Dr. Madrid from [facility]. She has known pt for many yea rs and suggested ketamine and propofol gtt. Updated her on APS recommendations. She will hav e her office fax her clinic records to us. Pt was seen with Dr. Childers. Milton Moreau MD PGY-3, Internal Medicine Pager [phone] Pro Edwards RN - 10/22/2015 10:06 AM PSTActing as scribe for the UR Committee Physician named below. The primary medical team for this patient and the [facility] UR Committee have agreed after furth er study that an inpatient admission was not medically necessary. This hospital stay is con verted to an outpatient stay through use of Medicare Condition Code 44. The patient was not ified of this change in writing. The providers involved in this decision were: For patient s primary medical team: Melissa Childers MD For [facility] UR Committee: Kerry HARRIS RN CM [...] | | | LABORATORY | | | [facility] | | | SERVICES, | | | [...] | + + + + + | [facility] | [address] | [place] [address] | | | SERVICES, CORE | PARK [...] | | + +---------+ + + | [facility] DEPARTMENT OF | | | | [...] | + + + | STAT | [facility] | | | LABORATORY | | | LILLIAN CROSS | + + + + + + + + | Performing | Address | City/State/Zipcode | Phone Number | | Organization | | | | + + + + + | [facility]ORY | [address] | [place] [address] | | | SERVICESLILLIAN | [address] [...] | | | LABORATORY | | | [facility] | | | SERVICES, | | | [...] the MDRD equation recommended by the | [facility] | | National Kidney Disease Education [...] [facility] | [address] | [place] [address] | | | SERVICES, CORE | PARK [...] | + + + + + | [facility] | [address] | [place] [address] | | | SERVICES, CORE | [address] [...] [facility] | [address] | [place] [address] | | | SERVICES, CORE | PARK [...] | + + + + + | [facility] | [address] | [place] [address] | | | SERVICES, CORE | PARK [...] | + + + + + | [facility] | [address] [facility] [address] [address] | [place] [address] | | | SERVICES, CORE | [address] [...] | | | LABORATORY | | | [facility] | | | SERVICES, | | | [...] [facility] | [address] | [place] [address] | | | SERVICES, CORE | PARK [...] | | | | | 1 dose, [facility] 10/23/15 at 1245 | | PM PST | | | | + +-------+ +-------+---+---+ +---+---+ | | | +---+---+ + +-------+ +--------+---+---+ | ibuprofen (MOTRIN) tablet 600 | Given | 10/25/20 | 600 mg | | | | mg 600 mg, oral, EVERY 6 HOURS, | | 15 8:05 | | | | | First dose on [facility] 10/23/15 at | | AM PST [...] | | | | | NEEDED, Starting [facility] 10/23/15 at | | | | [...]
--- OUTSIDE RECORDS SUMMARY | ~2020-03-09 | XMS | Encounter Summary ---
Demographics + + + | Address | [address] | | | [place] [address] | + + + | Home Phone | | + + + | Preferred Language | Unknown | + + + | Marital Status | Single | + + + | Rastafarian Affiliation | FMD | + + + | Race | White | + + + | Ethnic Group | Not or | + + + Author + + + | Author | [facility] | + + + | Organization | [facility] | + + + | Address | Unknown | + + + | Phone | Unavailable | + + + Support + + +---------+ + | Name | Relationship | Address | Phone | + + +---------+ + | Patricia Colin | ECON | Unknown | | + + +---------+ + Care Team Providers + +------+ + | Care Classification Analyst Name | Role | Phone | + +------+ + | Allegra Gandhi | PCP | | + +------+ + Reason for Visit +--------+ + | Reason | Comments | +--------+ + | Pain | | +--------+ + Encounter Details +--------+ + + + + | Date | Type | Department | Care Team | Description | +--------+ + + + + | 03/10/ | Telephone | [facility] | Janak Riojas, | Pain | | 2011 | | Pain Center at | MD [address] | | | | | [facility] | [facility] [address] | | | | | [address] | [place], [place] | | | | | [place] for [facility] | [address] | | | | | and [facility] | [phone] | | | | | Floor | | | | | | [place], [place] | | | | | | [address] | | | | | | [phone] | | | +--------+ + + + [...]
--- OUTSIDE RECORDS SUMMARY | ~2020-03-09 | XMS | Encounter Summary ---
Demographics + + + | Address | [address] | | | [place] [address] | + + + | Home Phone [...] Providers + +------+ + | Care Deputy Editor In Chief Name | Role | Phone | + +------+ + | Justo Vazquez MD | PCP | | + +------+ + Encounter Details +--------+ + + + + | Date | Type | Department | Care Team | Description | +--------+ + + + + | 12/29/ | Document-Sc | UNKNOWN DEPARTMENT | Unknown . | | | 2017 | anned | [address] | | | | | | [address] | | | | | | [place], [place] | | | | | | [address] | | | +--------+ + + + [...] + + + | RADIOLOGY | | 12/29/2016 | | Results for this | | | | 12:00 AM | | procedure are in the | | | | PST | | results section. | + +--------+ + + + documented in this encounter Results RADIOLOGY (12/29/2016 12:00 AM PST) + + + | Narrative | Performed At | + + + | | | + + + documented in this encounter Visit Diagnoses Not on filedocumented in this encounter"
--- OUTSIDE RECORDS SUMMARY | ~2020-03-09 | XMS | Encounter Summary ---
Demographics + + + | Address | [address] | | | [place] [address] | + + + | Home Phone [...] Team Providers + +------+ + | Care Appeals Board Referee Name | Role | Phone | + [...] | | 2016 | | Center at [facility] [address] | MD Melissa | | | | | [address] [place] | | | | | | for Health and | | | | | | Healing, [address] | | | | | | [place], [place] | | | | | | [address] | | | | | | [phone] | | | +--------+ + + + [...]
--- OUTSIDE RECORDS SUMMARY | ~2020-03-09 | XMS | Encounter Summary ---
Demographics + + + | Address | [address] | | | [place] [address] | + + + | Home Phone | | + + + | Preferred Language | Unknown | + + + | Marital Status | Single | + + + | Christianity Affiliation | FMD | + + + [...] Team Providers + +------+ + | Care Comparison Shopper Name | Role | Phone | + [...] | | 2015 | | Center at [facility] [address] Torres MD | Treatment Planning | | | | [address] [facility] | | | | | | for Health and | | | | | | [facility] [address] | | | | | | [place], [place] | | | | | | [address] | | | | | | [phone] | | | +--------+ + + + [...]
--- OUTSIDE RECORDS SUMMARY | ~2020-03-09 | XMS | Encounter Summary ---
Demographics + + + | Address | [address] | | | [place] [address] | + + + | Home Phone [...] Team Providers + +------+ + | Care Career Development Coordinator/Teacher Name | Role | Phone | + +------+ + | Justo Vazquez MD | PCP | | + +------+ + Encounter Details +--------+ + + + + | Date | Type | Department | Care Team | Description | +--------+ + + + + | 09/27/ | Telephone | [facility] | Ilene Bright, | | | 2017 | | Pain Center at | POWER SHOVEL OPERATOR HELPER [address] | | | | | [place] | Ave [place], [place] | | | | | [address] | [address] | | | | | [place] for [facility] | [phone] | | | | | and [facility] | | | | | | [address] Floor | | | | | | [place], [place] | | | | | | [address] | | | | | | [phone] | | | +--------+ + + + [...]
--- OUTSIDE RECORDS SUMMARY | ~2020-03-09 | XMS | Encounter Summary ---
Demographics + + + | Address | [address] | | | [place] [address] | + + + | Home Phone [...] Team Providers + +------+ + | Care Sales Account Associate Name | Role | Phone | + +------+ + | Allegra Gandhi | PCP | | + +------+ + Reason for Visit + + + | Reason | Comments | + + + | Procedure | | + + + | Injection | | + + + | Procedure | | + + + Consult to [place] (Routine) +--------+--------+ + + + + | Status | Reason | Specialty | Diagnoses / | Referred By | Referred To | | | | | Procedures | Contact | Contact | +--------+--------+ + + + + | Closed | | Pain | Diagnoses | Oksana | Beulah, | | | | Management | CRPS | Allegra Nieto, | Dale Martinez MD | | | | | (complex | [place] | [address] | | | | | regional | [place] [address] | | | | | pain | FAMILY | [facility] | | | | | syndrome), | MEDICINE P | [id number] | | | | | lower limb | [address] | [place], [place] | | | | | Pain in | [place], | [address] | | | | | joint, lower | [place] [address] | Phone: | | | | | leg | Phone: | [phone] | | | | | Procedures | [phone] | Fax: | | | | | REQUEST TO | Fax: | [phone] | | | | | SURGERY | [phone] | | | | | | BSA/AML COMPLIANCE OFFICER | | | +--------+--------+ + + + + Encounter Details +--------+ + + + + | Date | Type | Department | Care Team | Description | +--------+ + + + + | 08/02/ | Procedure | Pain Center at [facility] | Dale Cantu, | Procedure; | | 2011 | | [address] | [address] | Injection; Procedure | | | | [facility] | [facility] [id number] | | | | | and [address] | [place], [place] | | | | | Floor | [address] | | | | | [place], [place] | [phone] | | | | | [address] | | | | | | [phone] | | | +--------+ + + + [...] + + + | Blood Pressure | 125/52 | 08/02/2012 6:43 AM | | | | | PDT | | + + + + + | Pulse | 85 | 08/02/2012 6:43 AM | | | | | PDT | | + + + + + | Temperature | 36.7 C (98.1 F) | 08/02/2012 6:43 AM | | | | | PDT | | + + + + + | Respiratory Rate | - | - | | + + + + + | Oxygen Saturation | 99% | 08/02/2012 6:43 AM | | | | | PDT | | + + + + + | Inhaled Oxygen | - | - | | | Concentration | | | | + + + + + | Weight | 81.6 kg (180 lb) | 08/02/2012 6:43 AM | | | | | PDT | | + + + + + | Height | - | - | | + + + + + | Body Mass Index | 29.95 | 03/17/2012 3:42 PM | | | | | PDT | | + + + + + documented in this encounter Patient Instructions Patient Instructions Bear Yost, - 08/02/2012 6:34 AM PDTFormatting of this not e might be different from the original. [facility] Patient Instructions - Post Spinal Cord Stimulator Trial Date: 08/02/2012 Name: Tracie Farah Date of : 1990 Procedure Performed: SCS TRIAL LUMBAR [facility]. Procedure Provider: Dale Cantu [facility] Procedure Rm If you have any problems you believe are associated with your procedure tonight, Please call the [facility], and ask for the Pain Management Consu ltant. If you have problems or questions between 9:00 am and 4:00 pm, Please call the [facility] Nurse Triage Line, . If you go to an Emergency Room, please bring this form with you. DISCHARGE INSTRUCTIONS Call immediately and/or go to the Emergency department if any concerns about wound healing, fever, or chills. Also call for concerns about SCS function. During [facility] open hours, call the [facility] ([phone]), after hours call the leach cell operator at [facility] ([phone]) and ask for t he Adult Pain Service coal conveyor operator. Identify yourself as a [facility] patient wi th a concern about postoperative recovery. The IV site may feel sore until tomorrow. If the site becomes hot, red swollen, or increas ingly painful, or if the skin breaks open, call the phone number listed above, and/or go to your family doctor or to an Emergency room. The procedure site may be tender for a few days. Use ice packs and/or warm compresses to t he area as needed. If the procedure site becomes red or swollen, or if the pain increases, arianna fernández call the phone number listed above, and/or go to an Emergency Room. Activity restrictions following spinal cord stimulator lead placement: no lifting, twisting , bending. Daily check of the surgical sites. No shower, bath, or hot tub during the trial. The area of your procedure may be numb or weak for several hours. Diet Instructions: Resume your regular diet. Medication Instructions: Do not take any blood thinning medications during the trial. Resume all your regular medications. Call immediately if any concerns about the wounds, dressing, or SCS function. During [facility] o pen hours, call the [facility] ([phone]), after hours call the leach cell operator at [facility] ([phone] ) and ask for the Adult Pain Service coal conveyor operator. Identify yourself as my patient with a concer n about postoperative recovery. If there are concerns about the SCS programming, contact t he public health representative from the SCS social service liaison. If the stimulation is not covering your area o f pain, your SCS should be reprogrammed. Do not take any blood thinning medications during the trial. Instructions printed and reviewed with the patient. Copy of instructions given to Ms. Nemo renee. DALE CANTU MD [facility] documented in this encounter Progress Notes Dale Cantu MD - 08/03/2012 11:02 PM PDTI was present for the entire procedure (spinal cord stimulator trial lead placement, [facility]). I concur with Dr. Yost's findings. I edited his note. She noted an appropriate pattern of simulation with multiple contact confi gurations. She was provided programming and postoperative care instructions. DALE CANTU MD Mathematician, [facility] Warm In, Pain Medicine Professor, Anesthesiology & Perioperative Medicine Diana Arroyo RN - 08/02/2012 7:34 AM PDT PRE-SEDATION: Date: August 02, 2012 Tracie Farah [id number] 1990 ALLERGIES: Morphine Previous reaction to Sedation/Analgesia: MEDICATIONS: Current Outpatient Prescriptions Medication HYDROcodone-acetaminophen (NORCO) 10-325 mg Oral Tablet KETOROLAC TROMETHAMINE (TORADOL IM) levonorgestrel (MIRENA) 20 mcg/24 hr Intrauterine IUD LORazepam 1 mg Oral Tablet ondansetron (ZOFRAN) 8 mg Oral Tablet promethazine 25 mg Oral Tablet Meets NPO Guidelines. IV ACCESS: IV in Place IV Site [facility] 22 g @ 0655 BASELINE VS: See Sedation Flow Sheet. Tracie Donaldson [facility] [id number] 1990, presents to clinic for: Procedure: Spinal Cord Stimuation Trial PREVIOUS REACTION TO SEDATION/ANALGESIA: No SEDATION/ ANALGESIA PLAN: Moderate Sedation Meets NPO Guidelines: Yes ( NPO x> 6 hours from solids and/or > 3 hours from clear liquids) . Sedation Consent obtained: Yes Procedure Consent obtained: Yes H&P obtained: Yes Emergency equipment available per policy. 0700 - 0720: Ancef 2 gm IV 0732 - 0733: [place]azol[place] 2 [place] [address]: Fentanyl 25 mcg IV 0740 - 0741: Midazolam 2 mg IV 0742: Procedure started 0743 - 0744: Fentanyl 50 mcg IV 0753-54: Fentanyl 25 mcg IV Lead # 1 placed Lead # 2 placed 0801: Stimulation started. 0829: Pt reports stimulation to usual areas of pain. Leads secured. 0845: [facility] [place] in stable condition. IV dc'd. Evelia Parsons 08/02/2012 6:40 AM PDTCMA History: 1. Has your pain changed [...] NO ROS:. 1. BONES, JOINTS AND MUSCLES cramps , joint pain, muscle pain, stiffness and swelling 2. GASTROINTESTINAL SYSTEM negative 3. GENITOURINARY SYSTEM negative 4. NERVOUS SYSTEM numbness and weakness 5. PSYCHIATRIC HISTORY sleep disturbance, decreased interest in previously enjoyable acti vities, decreased energy, concentration , anxiety, fear of physical activity and social with drawal Bear Ward DO - 08/02/2012 6:35 AM PDTPROVICHIOMA OPERATIVE NOTE Date: August 02, 2012 Location: [facility] Procedure Room Tracie Farah [id number] :1990, presents to clinic for: PROCEDURE: Spinal Cord Stimuation Trial LEVEL/LATERALITY: midline lumbar PRE-OPERATIVE DIAGNOSIS: 355.71B CRPS (complex regional pain syndrome), lower limb 719.46 Pain in joint, lower leg 781.2Q Gait disturbance POST-OPERATIVE DIAGNOSIS: 355.71B CRPS (complex regional pain syndrome), lower limb 719.46 Pain in joint, lower leg 781.2Q Gait disturbance ATTENDING PHYSICIAN: Dale Cantu MD AIRCRAFT SYSTEMS REPAIRER: Fellow Bear Yost DO ANESTHESIA: sedation delivered by Ezequiel Hughes RN. Sedation is supervised by Dale olsen MD FINDINGS: Appropriate lead placement in epidural space and on fluoroscopy., stimulation co verage of her pain areas IV Fluids: none Estimated Blood Loss: none Drains, Specimens, Complications: None INDICATIONS: Tracie Farah has a history of 355.71B CRPS (complex regional pain sy ndrome), lower limb 719.46 Pain in joint, lower leg 781.2Q Gait disturbance Ms. Farah has longstanding Complex Regional Pain Syndrome that has been resistant to mul tiple prior treatment efforts. I reviewed the Registered Nurse's pre-sedation report and agree to the plan. The patient wa s deemed an appropriate candidate to undergo the planned procedure. ASA Physical Status 2. PROCEDURE IN DETAIL: Prior to the procedure, I had a PARQ discussion with Tracie Farah, and she gave wr itten consent for procedure and sedation. Ms. Farah was escorted to the [facility] Procedure Ro om, where she was positioned Prone on the examination table. TEAM PAUSE: The physician-led pause was conducted, and is documented in the Nursing note. Monitors were placed, including ECG, NIBP and SpO2. The skin was prepared with Chloroprep and sterile drapes were applied. [employer] system was used for this procedure. The company public health representative was theresa knutson for the procedure. CEFAZOLIN 2 GRAMS was administered intravenously prior to the procedure. The T12-L1 interspace was identified by fluoroscopy in an AP plane. Lidocaine 1% with epine phrine 1:200,000 mixed 1:1 with bupivacaine 0.5% was used to anesthetize the skin entry site slightly inferior and lateral to the center of the interspace. A 14G 4 inch introducer nee dle was advanced under intermittent fluoroscopy until it contacted the lamina. A loss-of-re sistance syringe was placed on the needle as the needle was advanced over the edge of the la eleazar. There was a positive loss of resistance to air on the First attempt. There was not a pares thesia with needle placement. Aspiration for blood and CSF was negative. The spinal cord stimulator lead was placed under fluoroscopic guidance until the superior-m ost electrode was visualized at the T8/9 vertebral level. The sedation was lightened to all ow clear verbal communication with the patient. We then turned our attention to the second lead, and we repeated the procedure with success finding the epidural space on the 1st attempt but was placed at the L1/L2 interspace. Follo wing placement of the second lead, the first lead was moved to also be at the L1/L2 interspa ce. The spinal cord stimulator lead was tested with a variety of programs. The leads did requi re repositioning to achieve optimal stimulation, with locations medial and lateral from T8 t o T12 tested. At the end of the testing session, Ms. Farah was satisfied with the stimu lation, and the leads were affixed to the skin. The final Lead position was close to the mid line at T11/12, as this location appeared to provide the best stimulation coverage of her ar eas of pain. Ms. Farah was transported to the [facility] post-procedure recovery area where she made an uneventful recovery. Images were saved, and sent to [employer]. Ms. Farah will have her next appointment in 2 days for follow up. She will maintain a pain diary for this procedure. We discussed postoperative acitivity restrictions following spinal cord stimulator lead eva cement: no lifting, twisting, bending while leads in place. . Daily check of the dressing.. No hot tub, shower, or bath, keep the dressing dry.. Call immediately if any concerns about wound healing or SCS function. During [facility] open hours, call the [facility] [phone]), after h ours call the leach cell operator at [facility] ([phone]) and ask for the Adult Pain Service coal conveyor operator. Identify yourself as my patient with a concern about postoperative recovery. DALE CANTU MD was present for the entire procedure. BEAR YOST DO documented in this en counter Plan of Treatment Not on filedocumented as of this encounter Procedures + +--------+ + + + | Procedure Name | Priori | Date/Time | Associated Diagnosis | Comments | | | ty | | | | + +--------+ + + + | UT PERCUT IMPLNT | Routin | 08/03/2012 | CRPS (complex | | | NEUROELECT,EPIDURAL | e | 11:11 PM | regional pain | | | | | PDT | syndrome), lower | | | | | | limb Pain in joint, | | | | | | lower leg Gait | | | | | | disturbance | | + +--------+ + + + | OCTRODE TRIAL LEAD | Routin | 08/02/2012 | CRPS (complex | | | KIT (3086) | e | 7:59 AM | regional pain | | | | | PDT | syndrome), lower | | | | | | limb | | + +--------+ + + + documented in this encounter Visit Diagnoses + + | Diagnosis | + + | CRPS (complex regional pain syndrome), lower limb - Primary Causalgia of lower limb | + + | Pain in joint, lower leg | + + | Gait disturbance Abnormality of gait | + + documented in this encounter"
--- OUTSIDE RECORDS SUMMARY | ~2020-03-09 | XMS | Encounter Summary ---
Demographics + + + | Address | [address] | | | [place] [address] | + + + | Home Phone [...] Team Providers + +------+ + | Care Nursing Clinical Director Name | Role | Phone | + +------+ + | Allegra Gandhi | PCP | | + +------+ + Encounter Details +--------+ + + + + | Date | Type | Department | Care Team | Description | +--------+ + + + + | 03/01/ | Results | [facility] | Janak Riojas, | | | 2011 | Only | Pain Center at | MD [address] [facility] | | | | | [facility] | [facility] [id number] | | | | | [address] | [place], [place] | | | | | [facility] | [address] | | | | | and [facility] | [phone] | | | | | 15th Floor | | | | | | [place], [place] | | | | | | [address] | | | | | | [phone] | | | +--------+ + + + [...]
--- OUTSIDE RECORDS SUMMARY | ~2020-03-09 | XMS | Encounter Summary ---
Demographics + + + | Address | [address] | | | [place] [address] | + + + | Home Phone | | + + + | Preferred Language | Unknown | + + + | Marital Status | Single | + + + | Orthodoxy Affiliation | FMD | + + + [...] Team Providers + +------+ + | Care Quarry Boss Name | Role | Phone | + [...] + + | 10/06/ | Telephone | [facility] | Yosef Kenney MD | Dermatitis | | 2018 | | Pain Center at | [address] | | | | | [facility] | [facility] | | | | | [address] | [place] [address] | | | | | [facility] | [phone] | | | | | and [facility] | | | | | | | | | | | | [place], [place] | | | | | | [address] | | | | | | [phone] | | | +--------+ + + + [...]
--- OUTSIDE RECORDS SUMMARY | ~2020-03-09 | XMS | Encounter Summary ---
Demographics + + + | Address | [address] | | | [place] [address] | + + + | Home Phone [...] Team Providers + +------+ + | Care Class C Truck Driver Name | Role | Phone | + +------+ + | Justo Vazquez MD | PCP | | + +------+ + Encounter Details +--------+ + + + + | Date | Type | Department | Care Team | Description | +--------+ + + + + | 03/17/ | MyChart | [facility] Ilene | Yun Frey NP | Welcome | | 2017 | Encounter | Pain Center at | [address] | | | | | [facility] | [place], [place] | | | | | [address] | [address] | | | | | [facility] | [phone] | | | | | and [facility] | | | | | | [address] Floor | | | | | | [place], [place] | | | | | | [address] | | | | | | [phone] | | | +--------+ + + + [...]
--- OUTSIDE RECORDS SUMMARY | ~2020-03-09 | XMS | Encounter Summary ---
Demographics + + + | Address | [address] | | | [place] [address] | + + + | Home Phone [...] + + + | Author | [facility] | + + + | Organization | [facility] | + + + | Address | Unknown | + + + | Phone | Unavailable | + + + Support + + +---------+ + | Name | Relationship | Address | Phone | + + +---------+ + | Patricia Colin | ECON | Unknown | | + + +---------+ + Care Team Providers + +------+ + | Care Lead Burner Helper Name | Role | Phone | + +------+ + | Justo Vazquez MD | PCP | | + +------+ + Encounter Details +--------+ + + + + | Date | Type | Department | Care Team | Description | +--------+ + + + + | 05/05/ | Documentati | [facility] | Alex Sanchez, | | | 2018 | on | Pain Center at | ,PhD [address] | | | | | [facility] | [address] | | | | | [address] | [place], [place] | | | | | [place] [facility] | [address] | | | | | and [facility] | [phone] | | | | | [address] Floor | | | | | | [place], [place] | | | | | | [address] | | | | | | [phone] | | | +--------+ + + + [...]
--- OUTSIDE RECORDS SUMMARY | ~2020-03-09 | XMS | Encounter Summary ---
Demographics + + + | Address | [address] | | | [place] [address] | + + + | Home Phone [...] Team Providers + +------+ + | Care Polisher And Buffer Name | Role | Phone | + [...] | | Complex | Alex Alba, | [facility] [address] | | | | | regional | ,PhD [address] | [address] | | | | | pain | [address] | | | | | syndrome | [address] | [address], | | | | | type [address] | [address] | Basement | | | | | left lower | [place], [place] | [place], [place] | | | | | extremity | [address] | [address] | | | | | Muscle pain | Phone: | Phone: | | | | | Procedures | [phone] | [phone] | | | | | NM BONE | Fax: | Fax: | | | | | &/OR JOINT | [phone] | [phone] | | | | | IMAGING | | | | | | | TOMOGRAPHIC | [...] | | | | | | | MS BONE | | | | | | | IMAGING, | | | | | | | LIMITED AREA | | | | | | | MS BONE | | | | | | [...] | | 2018 | Encounter | at [facility] [address] | ,PhD [address] [facility] | | | | | [address] | [address] | | | | | [address], | [place], [place] | | | | | [facility], | [address] | | | | | [place] [address] | [phone] | | | | | [phone] | | | +--------+ + + + [...] minutes blood pool images were obtained. At | | | 2 1/2 hours following injection, delayed images of the feet and lower | | | legs were imaged in the anterior and posterior plane. Whole body | | | images were also obtained in anterior and posterior plane as well. | | | SPECT/CT was performed of both ankles at 4-1/2 hours. FINDINGS: | | | The radionuclide angiogram shows normal symmetric activity with no | | | areas of increased or decreased flow. The capillary phase images also | | | show normal distribution of activity with no areas of increased or | | | decreased capillary permeability. The initial delayed images at 2-1/2 | | | hours show no visualization of bones. This is why we obtained a | | | further delayed SPECT/CT. The delayed SPECT/CT images show focal | | | intensely increased activity over the neck of the left fibula. There | | | is a metallic orthopedic pin in the calcaneus which projects into the | | | medial aspect of the fibula exactly where this increased activity is | | | present. There is another pin in the os calcis which has no | | | surrounding increased activity. Distribution of activity appears [...] images and, if necessary, edited the report. | | | I agree with the report as now [...]
--- OUTSIDE RECORDS SUMMARY | ~2020-03-09 | XMS | Encounter Summary ---
Demographics + + + | Address | [address] | | | [place] [address] | + + + | Home Phone [...] Team Providers + +------+ + | Care Gig Tender Name | Role | Phone | [...] | CRPS | Dale Martinez MD | [facility] [address] | | | | | (complex | [address] | Pavilion | | | | | regional | [address] | [address] | | | | | pain | [address]stop | Acosta Vanegas, | | | | | syndrome), | [id number] | Basement | | | | | lower limb | [place], [place] | [place], [place] | | | | | Procedures | [address] | [address] | | | | | NM BONE &/OR | Phone: | Phone: | | | | | JOINT | [phone] | [phone] | | | | | IMAGING 3 | Fax: | Fax: | | | | | PHASE | [phone] | [phone] | +--------+--------+ + + + + Consult [...] | | | regional | [place] | [address] | | | | | pain | FAMILY | [address] | | | | | syndrome), | MEDICINE P | [id number] | | | | | lower limb | [address] | [place], [place] | | | | | Gait | [place], | [address] | | | | | disturbance | [place] [address] | Phone: | | | | | Muscle pain | Phone: | [phone] | | | | | Procedures | [phone] | Fax: | | | | | REQUEST TO | Fax: | [phone] | | | | | SURGERY | [phone] | | | | | | CAMPAIGN MANAGEMENT SENIOR MANAGER | | | +--------+--------+ + + + + Consultation (Routine) +--------+--------+ + + + + | Status | Reason | Specialty | Diagnoses / | Referred By | Referred To | | | | | Procedures | Contact | Contact | +--------+--------+ + + + + | Closed | | Psychology / | Diagnoses | Beulah, | President Practicing Urologist Psych | | | | Pain | CRPS | Dale Martinez MD | [facility] [address] | | | | Management | (complex | [address] | | | | | regional | [address] | Center for | | | | | pain | Mail[place] | Health and | | | | | syndrome), | [id number] | Healing | | | | | lower limb | [place], [place] | [address], | | | | | Gait | [address] | 15th Floor | | | | | disturbance | Phone: | [place], [place] | | | | | Muscle pain | [phone] | [address] | | | | | Procedures | Fax: | Phone: | | | | | CONSULT TO | [phone] | [phone] | | | | | PAIN CENTER | | Fax: | | | | | | | [phone] | +--------+--------+ + + + + Physical Therapy (Routine) +--------+--------+ + + + + | Status | Reason | Specialty | Diagnoses / | Referred By | Referred To | | | | | Procedures | Contact | Contact | +--------+--------+ + + + + | Closed | | Physical | Diagnoses | Beulah, | Edu Pt President Practicing Urologist | | | | Therapy | CRPS | Dale Martinez MD | [facility] [address] | | | | | (complex | [address] | | | | | regional | [address] | Mailcode: | | | | | pain | [address] | [facility] [place] | | | | | syndrome), | [phone] | for Health | | | | | lower limb | [place], [place] | and Healing, | | | | | Gait | [address] | [facility] | | | | | disturbance | Phone: | [place], [place] | | | | | Muscle pain | [phone] | [address] | | | | | Procedures | Fax: | Phone: | | | | | PHYSICAL | [phone] | [phone] | | | | | THERAPY | [...] | | | 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 | FAMILY | [address] | | | | | of lower | MEDICINE P | [id number] | | | | | limb | [address] | [place], [place] | | | | | | [place], | [address] | | | | | | [place] [address] | Phone: | | | | | | Phone: | [phone] | | | | | | [phone] | Fax: | | | | | | Fax: | [phone] | | | | | | [phone] | | +--------+--------+ + + + + Encounter Details +--------+---------+ + + + | Date | Type | Department | Care Team | Description | +--------+---------+ + + + | 02/13/ | Office | [place] [facility] | Dale Cantu, | CRPS (complex | | 2011 | Visit | Pain Center at | MD [address] | regional pain | | | | [facility] | [facility] [id number] | syndrome), lower | | | | [address] | [place], [place] | limb; Gait | | | | [facility] | [address] | disturbance; Muscle | | | | and Healing Building | [phone] | pain; Adjustment | | | | 15th Floor | | reaction | | | | [place], [place] | | | | | | [address] | | | | | | [phone] | | | +--------+---------+ + + + [...] Diagnostic evaluation: Records from CRPS program at [facility]. 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 2. [...] employed by the psychologists here at the [facility]. 2.2 Physical therapy can reduce pain and improve functional status. Suggest Guillermo Sanon . 3. Medication suggestions: 3.1 Continue titrating up duloxetine. 3.2 As for any patient being managed with chronic opioids, we do recommend that the patien t have a signed [facility] Material Risk Notice, agree to whatever refill [...] procedure to assess the effects in detail. [facility] Pre-Procedure Instructions: The procedure you discussed with your doctor is called: LUMBAR SYMPATHETIC BLOCK. Please m sintia sure this is scheduled with the Communications Designer. Please bring a sales route driver with you. We may give you medications that make you drowsy or otherw ise unsafe to drive. If you do not have a sales route driver, we will not be able to do your procedure. DO NOT EAT ANYTHING AFTER MIDNIGHT If your appointment is after 1 PM , you may have a very light, low fat breakfast, such as h jail a piece of dry toast or a [...] PLEASE CONTACT THE [facility] AT [phone] ([phone]) FOR QUESTIONS OR IF YOU NEED TO CANCEL YOUR APPOINTMENT. [facility] documented in this encounter [...] for pain management consultation by [facility] [address] [place] [address] Reason for visit Chief Complaint Patient presents with Pain in left leg Ankle pain left History of Present Illness: Tracie Farah is a 21 year old female with pain locate d in left lower extremity. She has been diagnosed with CRPS. She is referred to [facility] for consultation regarding this ongoing pain problem with the following spec [facility] issues to be addressed: Other options for [...] by several orthopedic surgeons, Dr. Charles in [place], physical therapy, Occupational Therapy. Diagnostic and radiologic [...] pain relief. Admitted to the inpatient [facility] program for 1 month in the [...] entin, pregabalin, topiramate, tramadol, multiple opioids. Current Wolf about 6-8/day. St arting duloxetine, at 30 mg/day. She feels that the most effective medication treatments ar e or have been opioids. As a result of her pain, Ms. Farah notes multiple changes in her life, including: "I don 't have a life, can't work, can't go to school." Poor mood, sleep, activity. Using crutche s recently because of pain flare. POSITION CLASSIFICATION MANAGER Brief Pain Inventory: (ten= worst possible [...] History Social History Narrative Single. Goes to [employer] college with a light load. Has been working at [employer], can' t work on [employer]. Has roommates. Current Medication List 02/14/12 9:50 [...] Anaphylaxis As part of today's visit the [facility] new patient questionnaire was [...] ricks, the pediatric inpatient pain program at [facility], and two attempted lumbar sympathetic blocks. [...] CRPS patients (Loretta Rousseau, et al. Katrina Audiology Doctor Med. 2010;152: 152-158). Other treatment options for the future: Spinal cord stimulation (SCS) has good evidence f or providing extermination inspector relief in CRPS (Complex Regional Pain Syndrome) [...] [facility]: [facility] Suggest three ph ase bone scan-- ordered. [...] employed by the psychologists here at the [facility]. ORDER PLACED 2.2 Physical therapy can reduce pain and improve functional status. Suggest Guillermo Sanon . ORDER PLACED 3. Medication suggestions: 3.1 Continue titrating up duloxetine. 3.2 As for any patient being managed with chronic opioids, we do recommend that the patien t have a signed [facility] Material Risk Notice, agree to whatever refill [...] her PCP, BJORN Villanueva. DALE CANTU MD Surface Supervisor, [facility] Powdered Metal Supervisor, Pain Medicine Professor, Anesthesiology & Perioperative Medicine [...] | | | | | | Gerry Noe 02/15/2012 | | | | | | 8:22 AM | | | | + + + + + + + + | Specimen | + + | | + + + +---------+ + + | Performing | Address | City/State/Zipcode | Phone Number | | Organization | | | | + +---------+ + + | [facility] DEPARTMENT OF | | | | | [...]
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
--- OUTSIDE RECORDS SUMMARY | ~2020-03-09 | XMS | Encounter Summary ---
Demographics + + + | Address | [address] | | | [place] [address] | + + + | Home Phone [...] Team Providers + +------+ + | Care Public Records Researcher Name | Role | Phone | + +------+ + | Justo Vazquez MD | PCP | | + +------+ + Encounter Details +--------+ + + + + | Date | Type | Department | Care Team | Description | +--------+ + + + + | 12/05/ | Procedure | [facility] | | | | 2019 | Pass | [facility] | | | | | | and Healing Surgery | | | | | | Center Admitting | | | | | | Desk Located on the | | | | | | 4th floor [address] | | | | | | [place], | | | | | | [place] [address] | | | +--------+ + + + [...]
--- OUTSIDE RECORDS SUMMARY | ~2020-03-09 | XMS | Encounter Summary ---
Demographics + + + | Address | [address] | | | [place] [address] | + + + | Home Phone [...] Team Providers + +------+ + | Care Tree Topper Name | Role | Phone | + +------+ + | Justo Vazquez MD | PCP | | + +------+ + Reason for Visit + + + | Reason | Comments | + + + | Pain in left leg | | + + + | Procedure [...] | | Management | Complex | Alex D, | Alex D, | | | | | regional | ,PhD 3181 | ,PhD [address]181 | | | | | pain | [address] | | | | | syndrome | [address] | [address] | | | | | type 1 of | [address] | Rd [place], | | | | | left lower | [place], [place] | [place] | | | | | extremity | [address] | [address] | | | | | Muscle pain | Phone: | Phone: | | | | | Procedures | [phone] | [phone] | | | | | REQUEST TO | Fax: | Fax: | | | | | SURGERY | [phone] | [phone] | | | | | PARKING ATTENDANT | | | | | | | [place] INJ,ANES | | | | | | | AGENT,SCIATI | | | | | | | C | | | | | | | NERVE,SINGLE | | | | | | | W[place] INJECT | | | | | | | NERV | | | | | | | BLCK,OTHR | | | | | | | PERIPH NERV | | | | | | | WV SONO | | | | | | | GUIDE FOR | | | | | | | NEEDLE | | | | | | | PLACEMENT | | | | | | | WV MOD | | | | | | | SEDATION | | | | | | | >=5YRS SAME | | | | | | | MD/QUAL | | | | | | | PROV; INIT | | | | | | | 15 MIN [place] | | | | | | | MOD SEDATION | | | | | | | SAME/QUAL | | | | | | | PROV; EA | | | | | | | ADD'L 15 MIN | | | +--------+---------+ + + + + Encounter Details +--------+ + + + + | Date | Type | Department | Care Team | Description | +--------+ + + + + | 12/27/ | Procedure | [facility] at [facility] | Alex Sanchez, | Pain in left leg; | | 2017 | | [address] | ,PhD [address] | Procedure | | | | Center [facility] | [facility] | | | | | and Healing Building | [place], [place] | | | | | Floor | [address] | | | | | [place], [place] | [phone] | | | | | [address] | | | | | | [phone] | | | +--------+ + + + [...] + + + | Blood Pressure | 121/65 | 12/27/2017 4:18 PM | | | | | PST | | + + + + + | Pulse | 77 | 12/27/2017 4:18 PM | | | | | PST | | + + + + + | Temperature | 36.4 C (97.5 F) | 12/27/2017 2:57 PM | | | | | PST | | + + + + + | Respiratory Rate | 16 | 12/27/2017 4:18 PM | | | | | PST | | + + + + + | Oxygen Saturation | 98% | 12/27/2017 4:18 PM | | | | | PST | | + + + + + | Inhaled Oxygen | - | - | | | Concentration | | | | + + + + + | Weight | 74.8 kg (165 lb) | 12/27/2017 2:57 PM | | | | | PST | | + + + + + | Height | 162.6 cm (5' 4") | 12/27/2017 2:57 PM | | | | | PST | | + + + + + | Body Mass Index | 28.32 | 12/27/2017 2:57 PM | | | | | PST | | + + + + + documented in this encounter Patient Instructions Patient Instructions David Linares MD - 12/27/2017 3:00 PM PSTFormatting of this note mi nayelit be different from the original. [facility] Patient Instructions - Post Interventional Procedure Date: 12/27/2017 Name: Tracie Farah Date of : 1990 Procedure Performed: trigger point injection and popliteal/sciatic block. Procedure Provider: Alex Sanchez MD,PhD If you have any problems you believe are associated with your procedure tonight, Please call the Hospital Material Lister, and ask for the Pain Management Consu ltant. If you have problems or questions between 9:00 am and 4:00 pm, Please call the [facility] Nurse Triage Line, . If you go to an Emergency Room, please bring this form with you. DISCHARGE INSTRUCTIONS IV YES/NO: The IV site may feel sore until tomorrow. If the site becomes hot, red swollen, or increasingly painful, or if the skin breaks open, call the phone number listed above, and /or go to your family doctor or to an Emergency room. The procedure site may be tender for a few days. Use ice packs and/or warm compresses to t he area as needed. You may bathe or shower. If the procedure site becomes red or swollen, or if the pain increases, please call the phone number listed above, and/or go to an Emergen cy Room. Activity Instructions: Please fill out your pain diary every 12 hours until you run out of paper. Please fax the pain diary to [phone] or attach a scanned image of it to a Anago message to your doct or.. The area of your procedure may be numb or weak for several hours. You should not drive for 6 hours after the procedure. You may resume normal activities 12 hours after the procedure . Diet Instructions: Resume your regular diet. Medication Instructions: Resume all your regular medications. Instructions printed and reviewed with the patient. Copy of instructions given to the larry ent. David Linares MD [facility] documented in this encounter Progress Notes Alex Sanchez MD,PhD - 12/27/2017 3:00 PM PSTI was present for the entire procedure ( popliteal nerve block and abdominal scar neuroma injection) and all bocanegra elements of this vis it. I reviewed the documentation of the other [facility] providers and concur with Dr. Linares's findings. I edited his note. 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 Sedation is supervised by Alex Sanchez MD FINDINGS: none IV Fluids: none Estimated Blood Loss: none Drains, Specimens, Complications: None INDICATIONS: Ms. 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 The patient wa s deemed an appropriate candidate to undergo the planned procedure. ASA Physical Status 1. PROCEDURE IN DETAIL: Prior to the procedure, we had a PARQ discussion with Tracie Farah, and she gave w ritten consent for procedure and sedation. Ms. Farah was escorted to the [facility] Procedure R oom, where she was positioned Prone on the examination table. TEAM PAUSE: The physician-led pause was conducted, and is documented in the Nursing note. Monitors were placed, including ECG, NIBP and SpO2. The skin was prepared with Chloroprep and sterile drapes were applied. The most tender trigger points in the abdominal scar were palpated. Ultrasound was used to try to identify a neuroma or abnormal collection underneath the scar, which was apparent abo ve the rectus abdominus on the left. A mixture of 9 mL Ropivacaine 0.5% and 1 mL Kenalog (tr iamcinolone) 40 mg/mL was drawn. In equally divided doses, 5 areas were injected using the t otal 10 mL solution. Dry needling was performed in those areas. Needle was removed in the en d without any immediate post injection complications. We then prepped the left popliteal area, and placed sterile drapes. We identified the sciat ic nerve as it enters the popliteal fossa on ultrasound. The skin overlying the lateral aspe ct superior to the knee was injected with 1% lidocaine, and a 100mm 22G Pajunk needle was pl aced under ultrasound to the sciatic nerve. We stimulated at this time, which positive for p eroneal nerve stimulation. We then injected 10 cc of 0.5% ropivacaine after negative aspirat ion for blood. The needle was then withdrawn and a bandage applied This was a unilateral procedure. Alex Sanchez MD,PhD was present for the entire procedure. Images were saved, and sent to [employer]. Ms. Farah was transported to the [facility] post-procedure recovery area. She had an uneventful recovery. Before the procedure, Ms. Farah's pain was 6/10. After the procedure Ms. Farah's pain was 8/10. David Linares MD Tania Kim RN - 12/27/2017 3:00 PM PST POST PROCEDURE: 4:09 PM Arrived to recovery in stable condition, monitoring initiated, see vitals flowsheet . Filed Vitals: 12/27/2017 2:57 PM 12/27/2017 4:10 PM 12/27/2017 4:18 PM Height: 1.626 m (5' 4") Weight: 74.8 kg (165 lb) BP: 113/68 131/90 121/65 Pulse: 66 80 77 Temp: 36.4 C (97.5 F) TempSrc: Oral Resp: 16 16 16 SpO2: 99% 96% 98% PainSc: 06 - Severe 07 - Severe to Very Severe 08 - Very Severe PainLoc: Leg (Left) Leg (Left) Leg (Left) BMI: 28.32 kg/(m^2) IV Removed NO -- Has Port-A-Cath Tolerating PO intake without any complications. Procedure site dressing is clean, dry, and intact, with no complications. AVS given and explained YES -- Pain Diary Given YES -- Current Pain 8/10, pre-procedure pain was 6/10 Hard copy of prescriptions given N/A -- Questions Answered YES -- Met all discharge criteria. 1620 Discharged in stable condition, via Wheelchair, with parent Alex Carrillo MD,PhD - 12/27/2017 3:00 PM PSTF ormatting of this note might be different from the original. Pre-sedation Evaluation History: Are you having breathing problems today? no Are you having chest pain or discomfort today?no Have you had a prior history of difficult intubation or ventilation? no Do you have noisy breathing (stridor)? no Do you snore? no Do you have documented sleep apnea? no Previous sedation/anesthesia experience and NPO status documented on nursing note, which I have reviewed. Past Medical History: Diagnosis Date Abdominal pain Ankle fracture, left Anxiety Compartment syndrome (HCC) Depression GERD (gastroesophageal reflux disease) Neuroma of lower extremity Other chronic pain Peroneal nerve injury Reflex sympathetic dystrophy of the lower limb Allergies Allergen Reactions Morphine Anaphylaxis Current Medication [...] by physician. Concentration is 150mg/mL. Compounded by [facility] ) LEVONORGESTREL 20 MCG/24 HR (5 YEARS) INTRAUTERINE DEVICE 1 Each by Intrauterine route once . May be removed and replaced with a new unit at anytime during menstrual cycle; do not leav e any one system in place for > 5 years. LYRICA 225 MG CAPSULE Take 225 mg by mouth two times daily 150mg in am, 225 mg in pm ONDANSETRON 4 MG DISINTEGRATING TABLET Dissolve 1 tablet in mouth every twelve hours as nee ded. PANTOPRAZOLE 40 MG TABLET,DELAYED RELEASE Take 40 mg by mouth once daily. PEG 3350-ELECTROLYTES 236 GRAM-22.74 GRAM-6.74 GRAM-5.86 GRAM SOLUTION Take as directed by [facility] Digestive [facility]- 2 gallon bowel prep POLYETHYLENE GLYCOL 3350 17 GRAM/DOSE ORAL POWDER Take 17 g by mouth once daily. PROMETHAZINE 12.5 MG TABLET Take 12.5 mg by mouth four times daily as needed for nausea/vom iting. SUCRALFATE 1 GRAM TABLET Take 1 g by mouth four times daily. Patient Active Problem List Diagnosis CRPS (complex regional pain syndrome), lower limb Gait disturbance Muscle pain Adjustment reaction Pain in joint, lower leg Disturbance in sleep behavior Pain of upper abdomen 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 Irritable bowel syndrome with constipation Intractable cyclical vomiting with nausea Abdominal pain Physical Examination: Body mass index is 28.32 kg/m. Airway Examination normal airway Assessment: I have reviewed Ms. Farah's history and and conducted the physical examination as docume nted above. This patient is appropriate for moderate sedation. Ms. Farah has provided written consent for sedation with this procedure. ASA Status: 1. Plan: Procedure with moderate sedationElectronically signed by Alex Sanchez MD,PhD at 2017 8:51 AM Samia Vegas RN - 12/27/2017 3:00 PM PSTFormatting of this note might be d ifferent from the original. RN/ZOFIA PRE-SEDATION: Date: December 27, 2017 Tracie Farah [id number] 1990 ALLERGIES: Morphine Previous reaction to Sedation/Analgesia: No MEDICATIONS: Current Outpatient Prescriptions Medication baclofen 10 mg oral tablet COMPOUNDED MED RX CONTROLLED (SEE ADMIN INSTRUCT FOR INGREDIENTS) cyclobenzaprine 5 mg oral tablet dextromethorphan-quiNIDine (NUEDEXTA) 20-10 mg oral capsule ketamine 100 mg/mL injection solution lamoTRIgine 200 mg oral tablet levonorgestrel (MIRENA) 20 mcg/24 hr Intrauterine IUD LYRICA 225 mg oral capsule memantine 28 mg oral capsule,sprinkle,ER 24hr ondansetron ODT 4 mg oral tablet,disintegrating pantoprazole 40 mg oral tablet,delayed release (DR/EC) peg-electrolyte 236-22.74-6.74 -5.86 gram oral recon soln polyethylene glycol 17 gram/dose oral powder promethazine 12.5 mg oral tablet sucralfate 1 gram oral tablet No current facility-administered medications for this visit. Meets NPO Guidelines: yes Any recent fevers?Or surgery? yes Any recent visits to ED ?Or recent antibiotics use? no Could the patient be ? no Would she like to have a test? no Are you on any blood thinning medications no Do you have a ride here with you? yes Who?: mother RN/PATIENT CARE SECRETARY History: 1. Has your pain changed from [...] YES ROS:. 1. BONES, JOINTS AND MUSCLES atrophy, cramps , joint pain, muscle pain and stiffness 2. GASTROINTESTINAL SYSTEM negative 3. GENITOURINARY SYSTEM negative 4. NERVOUS SYSTEM numbness and weakness 5. PSYCHIATRIC HISTORY sleep disturbance, decreased interest in previously enjoyable acti vities, guilt, decreased energy, concentration , anxiety, fear of physical activity and soci al withdrawal onacIsadora bonner RN - 12/27/2017 3:00 PM PSTNurse PRE-SEDATION: Date: December 27, 2017 Tracie Ocampojulita Farah [id number] 1990 See RN /PATIENT CARE SECRETARY Pre-Sedation Note. IV ACCESS:Right subc PAC. BASELINE VS: See Sedation Flow Sheet. Tracie Donaldson Sofi [id number] 1990, presents to clinic for: Procedure: left Sciatic Popliteal Nerve Block and Trigger Point PREVIOUS REACTION TO SEDATION/ANALGESIA: See Rooming Note. SEDATION/ ANALGESIA PLAN: Moderate Sedation Meets NPO Guidelines: Yes ( NPO x> 6 hours from solids and/or > 3 hours from clear liquids) . Sedation Consent obtained: Yes Procedure Consent in chart: Yes ID Band in place: Yes H&P obtained: Yes Emergency equipment available per policy. Physician/ RN / Team PAUSE completed. 1530 Procedure started. 1530 Midazolam 2mg IV given 1530 [id number] mcg IV given 1534 Midazolam 1mg IV given 1546 Midazolam 1mg IV given 1546 Driulakw912 mcg IV given 1548 Fentanyl 100 mcg IV given bupivacaine 0.5%, 9mL given, 21mL wasted Kenalog 40mg/mL 1mL, 0 mL wasted 1555 abdominal scar trigger point completed. 1558 Fentanyl 50 mcg IV given 1601 Fentanyl 50 mcg IV given [place] placed for Popliteal Nerve Block.. Placement verified by US and Stimuplex. Ropivacaine 0.5% 10 ml given, 20 mL wasted. 1605 Procedure completed. Patient returned to bay per man in stable condition. documented in this encounter Plan of Treatment Not on filedocumented as of this encounter Procedures + +--------+ + + + | Procedure Name | Priori | Date/Time | Associated Diagnosis | Comments | | | ty | | | | + +--------+ + + + | [place] INJECTION(S), | Routin | 12/27/2017 | Complex regional | | | ANESTHETIC AGENT(S) | e | 4:32 PM | pain syndrome type 1 | | | AND/OR STEROID; | | PST | of left lower | | | OTHER PERIPHERAL | | | extremity | | | NERVE OR BRANCH | | | | | + +--------+ + + + | [place] ROPIVACAINE HCL | Routin | 12/27/2017 | Complex regional | | | INJ 0.5% | e | 4:32 PM | pain syndrome type 1 | | | | | PST | of left lower | | | | | | extremity | | + +--------+ + + + | [place] MOD SEDATION | Routin | 12/27/2017 | Complex regional | | | >=5YRS SAME MD/QUAL | e | 4:32 PM | pain syndrome type 1 | | | PROV; INIT 15 MIN | | PST | of left lower | | | | | | extremity | | + +--------+ + + + documented in this encounter Results [facility] MISC PROCEDURE (12/27/2017 3:28 PM PST) + + | Specimen | + + | | + + + + + | Narrative | Performed At | + + + | Refer to the | | | encounter notes for imaging results. | | + + + documented in this encounter Visit Diagnoses + + | Diagnosis | + + | Complex regional pain syndrome type 1 of left lower extremity - Primary | + + | Pain of upper abdomen Abdominal pain, other specified site | + + | Abdominal scar neuroma Other benign neoplasm of connective and other soft tissue of | | abdomen | + + documented in this encounter
--- OUTSIDE RECORDS SUMMARY | ~2020-03-09 | XMS | Encounter Summary ---
Demographics + + + | Address | [address] | | | [place] [address] | + + + | Home Phone [...] Team Providers + +------+ + | Care Gas Worker Name | Role | Phone | [...] 2016 | | Pain Center at | ROUTE CDL DRIVER [address] | | | | | [facility] | [place], [place] | | | | | [address] | [address] | | | | | [facility] | [phone] | | | | | and [address] [facility] | | | | | | Floor | | | | | | [place], [place] | | | | | | [address] | | | | | | [phone] | | | +--------+ + + + [...]
--- OUTSIDE RECORDS SUMMARY | ~2020-03-09 | XMS | Encounter Summary ---
Demographics + + + | Address | [address] | | | [place] [address] | + + + | Home Phone [...] Team Providers + +------+ + | Care Steam Flattener Name | Role | Phone | + [...] Pain Medicine | Diagnoses | Chasity, | Packager Chh1 | | | | / Pain | Abdominal | MD Kenny | [address] | | | | Management | pain, | [address] | [facility] | | | | | unspecified | [facility] | for Health | | | | | location | Rd | and Healing | | | | | Procedures | [place], [place] | [facility] | | | | | CONSULT TO | [address] | 1,15th Floor | | | | | PAIN | | [place], [place] | | | | | MANAGEMENT | | [address] | | | | | | | Phone: | | | | | | | [phone] | | | | | | | Fax: | | | | | | | [phone] | +--------+--------+ + + + + Reason [...] Order; Abdominal | | 2016 | | [place] [address] [address] | | pain | | | | [address] [facility] | | | | | | for Health and | | | | | | Healing, [facility] 2 | | | | | | [place], [place] | | | | | | [address] | | | | | | [phone] | | | +--------+ + + + [...]
--- OUTSIDE RECORDS SUMMARY | ~2020-03-09 | XMS | Encounter Summary ---
Demographics + + + | Address | [address] | | | [place] [address] | + + + | Home Phone [...] Team Providers + +------+ + | Care Stud Sheep Farmer Name | Role | Phone | + [...] 2016 | | Pain Center at | OPTIMIZATION MANAGER [address] | | | | | [facility] | [place], [place] | | | | | [address] | [address] | | | | | [facility] | [phone] | | | | | and [address] [facility] | | | | | | Floor | | | | | | [place], [place] | | | | | | [address] | | | | | | [phone] | | | +--------+ + + + [...]
--- OUTSIDE RECORDS SUMMARY | ~2020-03-09 | XMS | Encounter Summary ---
Demographics + + + | Address | [address] | | | [place] [address] | + + + | Home Phone [...] Team Providers + +------+ + | Care Solution Advisor Name | Role | Phone | + +------+ + | Justo Vazquez MD | PCP | | + +------+ + Encounter Details +--------+ + + + + | Date | Type | Department | Care Team | Description | +--------+ + + + + | 10/03/ | Telephone | [facility] | Ilene Bright, | | | 2017 | | Pain Center at | NYLON MENDER [address] | | | | | [facility] | Ave [place], [place] | | | | | [address] | [address] | | | | | [place] for [facility] | [phone] | | | | | and [facility] | | | | | | 1,15th Floor | | | | | | [place], [place] | | | | | | [address] | | | | | | [phone] | | | +--------+ + + + [...]
--- OUTSIDE RECORDS SUMMARY | ~2020-03-09 | XMS | Encounter Summary ---
Demographics + + + | Address | [address] | | | [place] [address] | + + + | Home Phone [...] + +------+ + | Care Educational Institution Curator Name | Role | Phone | + [...] CRPS | Janak Martinez MD | Ch[facility] [address] | | | | Management | (complex | [address] | | | | | regional | [address] | Center for | | | | | pain | [facility] | Health and | | | | | syndrome), | [id number] | Healing | | | | | lower limb | [place], [place] | Building [address], | | | | | Gait | [address] | 15th Floor | | | | | disturbance | Phone: | [place], [place] | | | | | Muscle pain | [phone] | [address] | | | | | Procedures | Fax: | Phone: | | | | | CONSULT TO | [phone] | [phone] | | | | | PAIN CENTER | | Fax: | | | | | | | [phone] | +--------+--------+ + + + + Encounter Details +--------+---------+ + + + | Date | Type | Department | Care Team | Description | +--------+---------+ + + + | 03/20/ | Office | Pain Center at [facility] | Shelia Feldman, PhD | Unspecified | | 2011 | Visit | [address] | | adjustment reaction | | | | Center for Health | | (Primary Dx) | | | | and Healing Building | | | | | | , 15th Floor | | | | | | [place], [place] | | | | | | [address] | | | | | | [phone] | | | +--------+---------+ + + + [...] [facility] Name: Tracie Farah MR#: [id number] Date of : 1990 Date: March 20, 2012 Attending Psychologist: SHELIA FELDMAN, PHD CPT: 61140 Duration: 60min Psych: 309.0 Pain: 355.71 Tracie arrived on time for today's appointment, casually dressed and neatly groomed. Affect was appropriate, mood normothymic. She drove herself today and used crutches. She stated t hat she was doing "better", mainly because she has returned to work at [employer]. She is wo rking about 2 hour [...] discretion, not currently planned. SHELIA FELDMAN, PHD Vendor Representatives Licensed Clinical Psychologist [facility] Department of Anesthesiology & Perioperative Medicine [facility] [address] [place], [place] [id number] Historical Information: Introduction: Tracie Farah is a 21-year-old woman with >5 year hx of CRPS, R LE.S ocial & Psychiatric History: Tracie Farah lives in [place] in a shared apartment space. She has struggled wi th CRPS for at least 5 years; original injury to her foot was in 2001. In summer 2010 she h ad inpt pain tx at [facility] with limited penitentiary benefit. Recent flare; she arrived using crutches [...] stalks her; she withholds info from [employer] as she fears her father would committ a crime to protect his daughter (e.g., confront the stalker). I discussed with her today the idea of reclaiming control by stopping all respond ing to his texts. She learned some pain management techniques at [facility], mainly DB and PMR, which she does [...] Travel is a barrier; she lives in [place] DSM-IV Diagnoses/Impressions: Stickney I: 1. 309.9 Unspecified Adjustment Reaction 2. 780.50 Sleep Disturbance Stickney II: Deferred. Stickney III: Patient Active Problem List Diagnoses CRPS (complex regional pain syndrome), lower limb Gait disturbance Muscle pain Adjustment reaction Stickney IV: CRPS pain, pain related debility;difficulty attending class, working; family stres s; stalker ex-bf Stickney V: Global Assessment of Functioning = 75 [...] me should questions arise. SHELIA FELDMAN, PHD Vendor Representatives Licensed Clinical Psychologist [facility] Department of Anesthesiology & Perioperative Medicine [facility] [address] [place] [id number] documented in this enc ounter Plan of Treatment Not on filedocumented as of this encounter Visit Diagnoses + + | Diagnosis | + + | Unspecified adjustment reaction - Primary | + + documented in this encounter
--- OUTSIDE RECORDS SUMMARY | ~2020-03-09 | XMS | Encounter Summary ---
Demographics + + + | Address | [address] | | | [place] [address] | + + + | Home Phone [...] Providers + +------+ + | Care Rn Ambulatory Name | Role | Phone | + [...] | | | | regional | ,PhD [address]22 | | | | | | pain | [address] | | | | | | syndrome | [address] | | | | | | type 1 of | Rd | | | | | | left lower | [place], [place] | | | | | | extremity | [address] | | | | | | Procedures | Phone: | | | | | | PHYSICAL | [phone] | | | | | | THERAPY | Fax: | | | | | | REFERRAL | [phone] | | +--------+--------+ + + + + Encounter Details +--------+ + + + + | Date | Type | Department | Care Team | Description | +--------+ + + + + | 01/22/ | Telephone | [facility] Comprehensive | Alex Sanchez, | | | 2019 | | Pain Center at | ,PhD [address] | | | | | [facility] | [facility] | | | | | [address] | [place], [place] | | | | | [place] for [facility] | [address] | | | | | and [facility] | [phone] | | | | | | | | | | | [place], [place] | | | | | | [address] | | | | | | [phone] | | | +--------+ + + + [...]
--- OUTSIDE RECORDS SUMMARY | ~2020-03-09 | XMS | Encounter Summary ---
Demographics + + + | Address | [address] | | | [place] [address] | + + + | Home Phone | | + + + | Preferred Language | Unknown | + + + | Marital Status | Single | + + + | Shinto Affiliation | FMD | + + + [...] Team Providers + +------+ + | Care Stamping Bench Die Maker Name | Role | Phone | [...] enterography | | 2017 | Encounter | Center at [facility] [address] | | results | | | | [address] [facility] | | | | | | for Health and | | | | | | Healing, [address] | | | | | | [place], [place] | | | | | | [address] | | | | | | [phone] | | | +--------+ + + + [...]
--- OUTSIDE RECORDS SUMMARY | ~2020-03-09 | XMS | Encounter Summary ---
Demographics + + + | Address | [address] | | | [place] [address] | + + + | Home Phone [...] + + + | Author | [facility] | + + + | Organization | [facility] | + + + | Address | Unknown | + + + | Phone | Unavailable | + + + Support + + +---------+ + | Name | Relationship | Address | Phone | + + +---------+ + | Patricia Colin | ECON | Unknown | | + + +---------+ + Care Team Providers + +------+ + | Care Strong Nitric Operator Name | Role | Phone | [...] | | Complex | Alex Alba, | [facility] [address] | | | | | regional | ,PhD [address] | Pavilion | | | | | pain | [address] | [address] | | | | | syndrome | [address] | [address], | | | | | type 1 of | Rd | Basement | | | | | left lower | [place], [place] | [place], [place] | | | | | extremity | [address] | [address] | | | | | Muscle pain | Phone: | Phone: | | | | | Procedures | [phone] | [phone] | | | | | [place] BONE | Fax: | Fax: | | | | | &/OR JOINT | [phone] | [phone] | | | | | IMAGING | [...] | | | | | | | [place] BONE | | | | | | | IMAGING, | | | | | | | LIMITED AREA | | | | | | | [place] BONE | | | | | | | IMAGING | | | | | | | (SPECT) | | | +--------+--------+ + + + + Encounter Details +--------+ + + + + | Date | Type | Department | Care Team | Description | +--------+ + + + + | 12/27/ | Ancillary | [facility] Comprehensive | Alex Sanchez, | | | 2018 | Orders | Pain Center at | ,PhD [address] [facility] | | | | | [facility] | [address] | | | | | [address] | [place], [place] | | | | | [facility] | [address] | | | | | and [facility] | [phone] | | | | | Floor | | | | | | [place], [place] | | | | | | [address] | | | | | | [phone] | | | +--------+ + + + [...] Note | + + | Service Account, [employer] Res In Interface - 12/28/2017 11:43 AM [...]
--- OUTSIDE RECORDS SUMMARY | ~2020-03-09 | XMS | Encounter Summary ---
Demographics + + + | Address | [address] | | | [place] [address] | + + + | Home Phone [...] Team Providers + +------+ + | Care Tightener Name | Role | Phone | + +------+ + | Justo Vazquez MD | PCP | | + +------+ + Reason for Visit + + + | Reason | Comments | + + + | Foot pain | | + + + | Knee [...] | | | | | syndrome | [place] | [facility] | | | | | type 1 of | Rd | Rd [place], | | | | | left lower | [place], [place] | [place] | | | | | extremity | [address] | [address] | | | | | Procedures | Phone: | Phone: | | | | | REQUEST TO | [phone] | [phone] | | | | | SURGERY | Fax: | Fax: | | | | | FOOD DEMONSTRATOR | [phone] | [phone] | +--------+---------+ + + + + Encounter Details +--------+ + + + + | Date | Type | Department | Care Team | Description | +--------+ + + + + | 12/ | Procedure | Pain Center at [facility] | Alex Sanchez, | Foot pain; Knee | | 2018 | | [address] | ,PhD [address] | pain; Procedure | | | | [facility] | [facility] | | | | | and Healing Building | [place], [place] | | | | | Floor | [address] | | | | | [place], [place] | [phone] | | | | | [address] | | | | | | [phone] | | | +--------+ + + + [...] + + + | Blood Pressure | 108/78 | 09/25/2018 3:24 PM | | | | | PST | | + + + + + | Pulse | 75 | 09/25/2018 3:24 PM | | | | | PST | | + + + + + | Temperature | 36.2 C (97.1 F) | 09/25/2018 12:28 PM | | | | | PST | | + + + + + | Respiratory Rate | 12 | 09/25/2018 3:24 PM | | | | | PST | | + + + + + | Oxygen Saturation | 99% | 09/25/2018 3:24 PM | | | | | PST | | + + + + + | Inhaled Oxygen | - | - | | | Concentration | | | | + + + + + | Weight | 73.9 kg (163 lb) | 09/25/2018 12:28 PM | | | | | PST | | + + + + + | Height | 162.6 cm (5' 4") | 09/25/2018 12:28 PM | | | | | PST | | + + + + + | Body Mass Index | 27.98 | 09/25/2018 12:28 PM | | | | | PST | | + + + + + documented in this encounter Patient Instructions Patient Instructions Yesi Sonia - 09/25/2018 1:00 PM PST [facility] Patient Instructions - Post Interventional Procedure Date: 09/25/2018 Name: Tracie Farah Date of : 1990 Procedure Performed: SCS DRG TRIAL LUMBAR [facility] Procedure Provider: Alex Sanchez MD,PhD If you have any problems you believe are associated with your procedure tonight, Please call the Hospital Copy Reader, and ask for the Pain Management Consu ltant. If you have problems or questions between 9:00 am and 4:00 pm, Please call the [facility] [place] Nurse Triage Line, . If you go to an Emergency Room, please bring this form with you. DISCHARGE INSTRUCTIONS IV YES/NO: The IV site may feel sore until tomorrow. If the site becomes hot, red swollen, or increasingly painful, or if the skin breaks open, call the phone number listed above, and /or go to your family doctor or to an Emergency room. Call immediately and/or go to the Emergency department if any concerns about wound healing, fever, new neurological symptoms, dressing, SCS function, or chills. During RUBBER MIXER open ho urs, call the [facility] ([phone]), after hours call the basket machine operator at [facility] ([phone]) and ask for the Adult Pain Service dean of education. Identify yourself as a [facility] patient with a concern about postoperative recovery. The area of your procedure may be numb or weak for several hours. The procedure site may be tender for a few days. Use ice packs and/or warm compresses to the area as needed. If the procedure site becomes red or swollen, or if the pain increases , please call the phone number listed above, and/or go to an Emergency Room. Activity Instructions: No lifting, twisting, bending. Daily check of the surgical sites. No shower, bath, or hot t ub during the trial. Diet Instructions: Resume your regular diet. Medication Instructions: Do not take any blood thinning medications during the trial. Instructions printed and reviewed with the patient. Copy of instructions given to the pat ient. Aleta Rebollar MD [id number] signed by Sonia Key at 09/25/2018 3:07 PM PST documented in this encounter Progress Notes Alex Sanchez MD,PhD - 09/25/2018 1:00 PM PSTI was present for the entire procedure ( DRG SCS trial) and all bocanegra elements of this visit. I reviewed the documentation of the othe r [facility] providers and concur with Dr. Rebollar's findings. I edited his note. Alex Sanchez MD,PhD [employer] Anesthesiology and Pain Management [facility] [place] oZain flaherty RN - 09/25/2018 1:00 PM PSTFormatting of this note might be different from the origin al. POST PROCEDURE: 3:11 PM Arrived to recovery in stable condition, monitoring initiated, see vs flowsheet Filed Vitals: 09/25/2018 12:28 PM 09/25/2018 3:10 PM 09/25/2018 3:24 PM Height: 1.626 m (5' 4") Weight: 73.9 kg (163 lb) BP: 112/78 113/73 108/78 Pulse: 85 85 75 Temp: 36.2 C (97.1 F) TempSrc: Oral Resp: 15 SpO2: 100% 100% 99% PainSc: 07 - Severe to Very Severe 07 - Severe to Very Severe 07 - Severe to Very Severe PainLoc: Back (Lower) Leg (Left) BMI: 27.98 kg/(m^2) 1324 IV Removed YES -- Catheter tip intact, pressure applied. Procedure site dressing is clean dry and intact. Tolerating PO intake well. AVS given and explained YES -- Current Pain 7/10, pre-procedure pain was 7/10 Understanding of instructions verbalized by patient. Questions Answered YES -- Met all discharge criteria. Patient able to return to baseline weight bearing, no weakness/ numbness reported. 1650 Discharged in stable condition via Wheelchair With MOther Aleta Hines MD - 09/25 1:00 PM PST Pre-sedation Evaluation History: Are you having breathing [...] not use long er than 2-3 weeks. HYDROXYZINE HCL 50 MG TABLET Take 1 tablet by mouth two times daily. KETAMINE 100 MG/ML INJECTION SOLUTION 20 to 30 sprays in each nostril every 3 hrs as needed for pain as directed by physician. Concentration is 150mg/mL. Compounded by [employer] ) KETOROLAC IM Inject into the muscle [...] directed by [facility]- 2 gallon bowel prep POLYETHYLENE [...] with nausea Abdominal pain Abdominal scar neuroma Physical Examination: Body mass index is 27.98 kg/m. Airway Examination normal airway Assessment: I have reviewed Ms. Farah's history and and conducted the physical examination as docume nted above. This patient is appropriate for moderate sedation. Ms. Farah has provided written consent for sedation with this procedure. ASA Status: 2. Plan: Procedure with moderate sedation Khloe Wang RN - 09/25 1:00 PM PST RN/ZOFIA PRE-SEDATION: Date: September 25, 2018 Tracie Farah [id number] 1990 ALLERGIES: Morphine Previous reaction to Sedation/Analgesia: no MEDICATIONS: Current Outpatient Prescriptions Medication baclofen 10 mg oral tablet COMPOUNDED MED RX CONTROLLED (SEE ADMIN INSTRUCT FOR INGREDIENTS) cyclobenzaprine 5 mg oral tablet hydrOXYzine 50 mg oral tablet ketamine 100 mg/mL injection solution ketorolac tromethamine (KETOROLAC IM) levonorgestrel (MIRENA) 20 mcg/24 hr Intrauterine IUD ondansetron ODT 4 mg oral tablet,disintegrating pantoprazole 40 mg oral tablet,delayed release (DR/EC) peg-electrolyte 236-22.74-6.74 -5.86 gram oral recon soln polyethylene glycol 17 gram/dose oral powder promethazine 12.5 mg oral tablet sucralfate 1 gram oral tablet No current facility-administered medications for this visit. Meets NPO Guidelines: yes Any recent fevers?Or surgery? no Any recent visits to ED ?Or recent antibiotics use? no Could the patient be ? no Would she like to have a test? no Are you on any blood thinning medications no Do you have a ride here with you? yes Who?: Mom IV 2 try 24" R hand. 1315 LR 1000 ML started. 1320 2 gr Ancef IV given. RN/ZOFIA History: 1. Has your pain changed from [...] 1. BONES, JOINTS AND MUSCLES atrophy, joint pain and swelling 2. GASTROINTESTINAL SYSTEM negative 3. GENITOURINARY SYSTEM dysmenorrhea 4. NERVOUS SYSTEM numbness, weakness and vertigo 5. PSYCHIATRIC HISTORY sleep disturbance, guilt, decreased energy, concentration , anxiet y, fear of physical activity and social withdrawal Isadora Reyes RN - 09/25/2018 1:00 PM PSTFormatting of t his note might be different from the original. PRE-SEDATION AND PROCEDURE NOTES: Date: September 25, 2018 Tracie Donaldson [facility] [id number] 1990 ALLERGIES: Morphine Previous reaction to Sedation/Analgesia: See Rooming Note MEDICATIONS: Current Outpatient Prescriptions Medication baclofen 10 mg oral tablet COMPOUNDED MED RX CONTROLLED (SEE ADMIN INSTRUCT FOR INGREDIENTS) cyclobenzaprine 5 mg oral tablet hydrOXYzine 50 mg oral tablet ketamine 100 mg/mL injection solution ketorolac tromethamine (KETOROLAC IM) levonorgestrel (MIRENA) 20 mcg/24 hr Intrauterine IUD ondansetron ODT 4 mg oral tablet,disintegrating pantoprazole 40 mg oral tablet,delayed release (DR/EC) peg-electrolyte 236-22.74-6.74 -5.86 gram oral recon soln polyethylene glycol 17 gram/dose oral powder promethazine 12.5 mg oral tablet sucralfate 1 gram oral tablet No current facility-administered medications for this visit. IV ACCESS: IV in Place IV Catheter Size 24g and IV Site right hand BASELINE VS: See Sedation Flow Sheet. Tracie Donaldson [facility] [id number] 1990, presents to clinic for: Procedure: bilateral Spinal Cord Stimuation Trial SEDATION/ ANALGESIA PLAN: Moderate Sedation Sedation Consent obtained: Yes Procedure Consent obtained: Yes H&P obtained: Yes Meets NPO Guidelines: Yes ( NPO x> 6 hours from solids and/or > 3 hours from clear liquids) . Emergency equipment available per policy. Physician/ RN / Team PAUSE completed. 1328 Ancef 2 g given IV and 1000 mL bag of LR started. 1331 Versed 2mg given IV Fentanyl 50mcg given IV 1335 versed 1mg given IV 1338 Procedure started. Needle placed. 1338 versed 1mg fentanyl 50 mcg given 1341 fentanyl 25 mcg given IV 1mg versed given IV 1345 fentanyl 75 mcg given IV 1 mg versed given IV 1353 versed 1mg given IV 1356 fentanyl 50 mcg given IV 1401 fentanyl 25 mcg given IV 1404 fentanyl 25 mcg given IV 1mg versed given IV 1417 zofran 4mg given IV 1418 fentanyl 50 mcg given IV 1421 fentanyl 50 mcg given IV 1439 fentanyl 50 mcggiven IV 1454 Fentanyl 50 mcg given IV 1400 Lead 1 placed. 1450 Lead 2 placed. 1455 Patient reports stimulation to all areas of pain. 1459 Leads secured. 1503 Procedure complete. Patient returned to bay in stable condition. 900 mL of LR infused P Aleta Salazar MD - 09/25/2018 1:00 PM PSTPROVIDER OPERATIVE NOTE Date: September 25, 2018 Location: [facility] Procedure Room Tracie Donaldson [facility] [id number] :1990, presents to clinic for: PROCEDURE: DRG Spinal Cord Stimuation Trial with [employer] system LEVEL/LATERALITY: left L4, L5 PRE-OPERATIVE DIAGNOSIS: G90.522 Complex regional pain syndrome type 1 of left lower extremity POST-OPERATIVE DIAGNOSIS: G90.522 Complex regional pain syndrome type 1 of left lower extremity ATTENDING PHYSICIAN: Alex Sanchez MD,PhD TIME ANALYSIS CLERK: Fellow Aleta Rebollar ANESTHESIA: Sedation delivered by Shantel Benites CRNA. Sedation is supervised by Alex urrutia MD, PhD FINDINGS: As below IV Fluids: none Estimated Blood Loss: none Drains, Specimens, Complications: None INDICATIONS: Ms. Farah has a history of G90.522 Complex regional pain syndrome type 1 of left lower extremity I reviewed the Registered Nurse's pre-sedation report and agree to the plan. The patient wa s deemed an appropriate candidate to undergo the planned procedure. ASA Physical Status 2. PROCEDURE IN DETAIL: Prior to the procedure, we had a PARQ discussion with Tracie Farah, and she gave w ritten consent for procedure and sedation. Ms. Farah was escorted to the [facility] Procedure R oom, where she was positioned Prone on the examination table. TEAM PAUSE: The physician-led pause was conducted, and is documented in the Nursing note. Monitors were placed, including ECG, NIBP and SpO2. The skin was prepared with Chloroprep and sterile drapes were applied. AP fluoroscopic guidance was used to optimally visualize the left L4 and L5 vertebral magi s and pedicles. A 50:50 mixture of 2% lidocaine with epi and bupivacaine 0.5% was used as l ocal anesthetic. Using a AP approach, 14G tuohy needles were advanced under intermittent flu oroscopy until they contacted the lamina. The needles were then advanced incrementally with a loss of resistance syringe as well as intermittent fluoroscopy until loss was noted. A david dewire was used to determine when the epidural space was reached. The patient did not have p aresthesias with access to the epidural space. The sheath with DRG lead in place was then advanced through the tuohy needle and directed u ntil the 2nd and 3rd contact of the lead was visualized underneath the left L4 pedicle. No r esistance was encountered. The procedure was repeated at the L5 level using the same approac h. Once the correct lacement of the leads was confirmed by repeated fluroscopic images in AP a nd lateral the sheath was withdrawn to the tip of the needle making sure the lead did not mi grate during the withdrawal. Placing of the leads was confirmed by stimulation which resulte d in stimulation of the feet in a satisfactory pattern. The needle and sheath were rotated 180 degrees, and after pulling the stylette, the sheath was advanced 1-2 cm. The lead was advanced through the sheath until it made the superior str ain relief loop. The sheath was pulled into the needle and both were rotated 180 degrees. Th e sheath was advanced again 1-2 cm and lead advanced, creating the inferior strain relief lo op. These loops provide the stability of the lead in a figure of eight fashion to prevent a ny lead migration. The sheath was taken out of the needle, followed by the needle and the stylet out of the le ad, in that order under fluroscopy ensuring no migration of the lead . A StayFix dressing wa s used to affix the lead, and Tegaderm were used to cover the site. A small dressing was eva fanny under the connection to minimize pressure on the patient. Ms. Farah was transported to the [facility] [place] post-procedure recovery area where she made an uneventful recovery. Programming was performed in the PACU with aid of the device event marketing representative and Ms. Susie faust was sent home with a few programs . This was a unilateral procedure. Alex Sanchez MD,PhD was present for the entire procedure. Images were saved, and sent to [employer]. Ms. Farah was transported to the [facility] [place] post-procedure recovery area. She had an uneventful recovery. Before the procedure, Ms. Farah's pain was 7/10. After the procedure Ms. Farah's pain was 7/10. I, Sonia Key, am functioning as a scribe for Aleta Rebollar MD. I have reviewed and verified the above scribed note of my visit with this patient as record ed by Sonia Key. Aleta Rebollar MD [facility] AT [facility] 15TH FLOOR [address] [facility] Mail Code: [address] [place] [address] documented in t his encounter Plan of Treatment Not on filedocumented as of this encounter Procedures + +--------+ + + + | Procedure Name | Priori | Date/Time | Associated Diagnosis | Comments | | | ty | | | | + +--------+ + + + | OR MOD SEDATION | Routin | 09/25/2018 | Complex regional | | | >=5YRS SAME MD/QUAL | e | 7:31 PM | pain syndrome type 1 | | | PROV; INIT 15 MIN | | PST | of left lower | | | | | | extremity | | + +--------+ + + + | OR PERCUT IMPLNT | Routin | 09/25/2018 | Complex regional | | | NEUROELECT,EPIDURAL | e | 7:31 PM | pain syndrome type 1 | | | | | PST | of left lower | | | | | | extremity | | + +--------+ + + + documented in this encounter Results X-RAY [facility] (09/25/2018 3:03 PM PST) + + | Specimen | + + | | + + + + + | Narrative | Performed At | + + + | - At the time of the study, no professional interpretation was | | | requested. - | | + + + documented in this encounter Visit Diagnoses + + | Diagnosis | + + | Complex regional pain syndrome type 1 of left lower extremity - Primary | + + documented in this encounter
--- OUTSIDE RECORDS SUMMARY | ~2020-03-09 | XMS | Encounter Summary ---
Demographics + + + | Address | [address] | | | [place] [address] | + + + | Home Phone [...] Team Providers + +------+ + | Care Shelver Name | Role | Phone | + +------+ + | Justo Vazquez MD | PCP | | + +------+ + Encounter Details +--------+ + + + + | Date | Type | Department | Care Team | Description | +--------+ + + + + | 05/14/ | Telephone | [facility] | Alex Sanchez, | | | 2019 | | Pain Center at | ,PhD [address] | | | | | [facility] | [address] | | | | | [address] | [place], [place] | | | | | [place] for [facility] | [address] | | | | | and [facility] | [phone] | | | | | 1[address] Floor | | | | | | [place], [place] | | | | | | [address] | | | | | | [phone] | | | +--------+ + + + [...]
--- OUTSIDE RECORDS SUMMARY | ~2020-03-09 | XMS | Encounter Summary ---
Demographics + + + | Address | [address] | | | [place] [address] | + + + | Home Phone [...] Team Providers + +------+ + | Care Mannequin Mold Maker Name | Role | Phone | + +------+ + | Justo Vazquez MD | PCP | | + +------+ + Encounter Details +--------+ + + + + | Date | Type | Department | Care Team | Description | +--------+ + + + + | 07/28/ | Documentati | [facility] | Ilene Bright, | | | 2017 | on | Pain Center at | ACCOUNTING ADVISORY SERVICES MANAGER [address] | | | | | [facility] | [address] [place], [place] | | | | | [address] | [address] | | | | | [place] for [facility] | [phone] | | | | | and [facility] | | | | | | 1,15th Floor | | | | | | [place], [place] | | | | | | [address] | | | | | | [phone] | | | +--------+ + + + [...]
--- OUTSIDE RECORDS SUMMARY | ~2020-03-09 | XMS | Encounter Summary ---
Demographics + + + | Address | [address] | | | [place] [address] | + + + | Home Phone [...] Team Providers + +------+ + | Care Pantograph Watcher Name | Role | Phone | + [...] CRPS | Janak Martinez MD | [address] | | | | Management | (complex | [address] | | | | | regional | [address] | Center for | | | | | pain | Mailstop | Health and | | | | | syndrome), | [id number] | Healing | | | | | lower limb | [place], [place] | Building 1, | | | | | Gait | [address] | 15th Floor | | | | | disturbance | Phone: | [place], [place] | | | | | Muscle pain | [phone] | [address] | | | | | Procedures | Fax: | Phone: | | | | | CONSULT TO | [phone] | [phone] | | | | | PAIN CENTER | | Fax: | | | | | | | [phone] | +--------+--------+ + + + + Encounter Details +--------+---------+ + + + | Date | Type | Department | Care Team | Description | +--------+---------+ + + + | 03/20/ | Office | Pain Center at [facility] | Shelia Feldman, PhD | Unspecified | | 2011 | Visit | [address] | | adjustment reaction | | | | Center for Health | | (Primary Dx) | | | | and Healing Building | | | | | | , 15th Floor | | | | | | [place], [place] | | | | | | [address] | | | | | | [phone] | | | +--------+---------+ + + + [...] [facility] Name: Tracie Farah MR#: [id number] Date of : 1990 Date: March 20, 2012 Attending Psychologist: SHELIA FELDMAN, PHD CPT: 64864 Duration: 60min Psych: 309.0 Pain: 355.71 Tracie arrived on time for today's appointment, casually dressed and neatly groomed. Affect was appropriate, mood normothymic. She drove herself today and used crutches. She stated t hat she was doing "better", mainly because she has returned to work at [employer]. She is wo rking about 2 hour shifts; her pain is flared during work but she feels good because she is engaging in life and also is earning money. She reported that she has been cutting down on her pain medication because she wants to improve cognition (currently taking 1-2 daily at [facility] for sleep). She notes that [...] discretion, not currently planned. SHELIA FELDMAN, PHD Enterprise Mobility Architect Licensed Clinical Psychologist [facility] Department of Anesthesiology & Perioperative Medicine [facility] [address] [place], [place] [id number] Historical Information: Introduction: Tracie Farah is a 21-year-old woman with >5 year hx of CRPS, R LE.S ocial & Psychiatric History: Tracie Farah lives in [place] in a shared apartment space. She has struggled wi th CRPS for at least 5 years; original injury to her foot was in 2001. In summer 2010 she h ad inpt pain tx at [facility] with limited detention benefit. Recent flare; she [...] stalks her; she withholds info from da [employer] as she fears her father would committ a crime to protect his daughter (e.g., confront the stalker). I discussed with her today the idea of reclaiming control by stopping all respond ing to his texts. She learned some pain management techniques at [facility], mainly DB and PMR, which [...] behavioral therapy is indicated to improve cognit enlia coping skills. Discussed this in detail today [...] Travel is a barrier; she lives in [place] DSM-IV Diagnoses/Impressions: [place] I: 1. 309.9 Unspecified Adjustment Reaction 2. 780.50 Sleep Disturbance [place] II: Deferred. [place] III: Patient Active Problem List Diagnoses CRPS (complex regional pain syndrome), lower limb Gait disturbance Muscle pain Adjustment reaction [place] IV: CRPS pain, pain related debility;difficulty attending class, working; family stres s; stalker ex-bf [place] V: Global Assessment of Functioning = 75 [...] me should questions arise. SHELIA FELDMAN, PHD Enterprise Mobility Architect Licensed Clinical Psychologist [facility] Department of Anesthesiology & Perioperative Medicine [facility] [address] [place] [address] documented in this enc ounter Plan of Treatment Not on filedocumented as of this encounter Visit Diagnoses + + | Diagnosis | + + | Unspecified adjustment reaction - Primary | + + documented in this encounter
--- OUTSIDE RECORDS SUMMARY | ~2020-03-09 | XMS | Encounter Summary ---
Demographics + + + | Address | [address] | | | [place] [address] | + + + | Home Phone [...] Providers + +------+ + | Care Chain Hooker Name | Role | Phone | + [...] Oliveira | | 2011 | IP | [address] | | House - Approved | | | | [place], | | | | | | [place] [address] | | | +--------+ + + + [...]
--- OUTSIDE RECORDS SUMMARY | ~2020-03-09 | XMS | Encounter Summary ---
Demographics + + + | Address | [address] | | | [place] [address] | + + + | Home Phone [...] Providers + +------+ + | Care Gas Burner Operator Name | Role | Phone | [...] | | 2017 | | Center at [facility] [address] | MD Melissa | Marker instructions) | | | | [address] [facility] | | | | | | for Health and | | | | | | Healing, Building 2 | | | | | | [place], [place] | | | | | | [address] | | | | | | [phone] | | | +--------+ + + + [...]
--- OUTSIDE RECORDS SUMMARY | ~2020-03-09 | XMS | Encounter Summary ---
Demographics + + + | Address | [address] | | | [place] [address] | + + + | Home Phone | | + + + | Preferred Language | Unknown | + + + | Marital Status | Single | + + + | Shinto Affiliation | 1073 | + + + | Race | Unknown | + + + | Ethnic Group | Unknown | + + + Author + + + | Author | [facility] | | | and [place] | + + + | Organization | [facility] | | | and [place] | [...] [place] | | | | | [address] | | + + + + + | Bryant Farah | ECON | Unknown | | + + + + + Care Team Providers + +------+ + | Care Mail Handler Name | Role | Phone | + +------+ + PCP | Unavailable | + +------+ + Encounter Details +--------+ + + + + | Date | Type | Department | Care Team | Description | +--------+ + + + + | 03/16/ | Hospital | [facility] | Conversion | Back pain | | 2013 | Encounter | CONVERSION [address] | Transaction, | | | | | [address] | Provider Unknown | | | | | [place], [place] | [phone] | | | | | [address] | | | | | | [phone] | | | +--------+ + + + [...]
--- OUTSIDE RECORDS SUMMARY | ~2020-03-09 | XMS | Encounter Summary ---
Demographics + + + | Address | [address] | | | [place] [address] | + + + | Home Phone [...] Team Providers + +------+ + | Care Salary And Wage Administrator Name | Role | Phone | + +------+ + | Justo Vazquez MD | PCP | | + +------+ + Encounter Details +--------+ + + + + | Date | Type | Department | Care Team | Description | +--------+ + + + + | 10/19/ | Telephone | [facility] Comprehensive | Ilene Bright, | | | 2017 | | Pain Center at | WHEEL POLISHER [address] | | | | | [facility] | Ave [place], [place] | | | | | [address] | [address] | | | | | [place] for [facility] | [phone] | | | | | and [facility] | | | | | | 1,15th Floor | | | | | | [place], [place] | | | | | | [address] | | | | | | [phone] | | | +--------+ + + + [...]
--- OUTSIDE RECORDS SUMMARY | ~2020-03-09 | XMS | Encounter Summary ---
Demographics + + + | Address | [address] | | | [place] [address] | + + + | Home Phone | | + + + | Preferred Language | Unknown | + + + | Marital Status | Single | + + + | Sikh Affiliation | 1073 | + + + | Race | Unknown | + + + | Ethnic Group | Unknown | + + + Author + + + | Author | [facility] | | | and [place] | + + + | Organization | [facility] | | | and [place] | [...] [place] | | | | | [address] | | + + + + + | Bryant Farah | ERICKA | Unknown | | + + + + + Care Team Providers + +------+ + | Care Marine Machinist Name | Role | Phone | + +------+ + PCP | Unavailable | + +------+ + Encounter Details +--------+ + + + + | Date | Type | Department | Care Team | Description | +--------+ + + + + | 09/12/ | Hospital | [facility] | | | | 2008 | Encounter | [facility] | | | | | | CENTER [address] | | | | | | [place], [place] | | | | | | [address] | | | | | | [phone] | | | +--------+ + + + [...]
--- OUTSIDE RECORDS SUMMARY | ~2020-03-09 | XMS | Encounter Summary ---
Demographics + + + | Address | [address] | | | [place] [address] | + + + | Home Phone [...] Team Providers + +------+ + | Care Clinical Product Specialist Name | Role | Phone | [...] | | Pain Center at | [address] [facility] | | | | | [facility] | [address] [id number] | | | | | [address] | [place], [place] | | | | | [facility] | [address] | | | | | and Healing Building | [phone] | | | | | Floor | | | | | | [place], [place] | | | | | | [address] | | | | | | [phone] | | | +--------+ + + + [...]
--- OUTSIDE RECORDS SUMMARY | ~2020-03-09 | XMS | Encounter Summary ---
Demographics + + + | Address | [address] | | | [place] [address] | + + + | Home Phone [...] + + + | Author | [facility] | + + + | Organization | [facility] | + + + | Address | Unknown | + + + | Phone | Unavailable | + + + Support + + +---------+ + | Name | Relationship | Address | Phone | + + +---------+ + | Patricia Colin | ECON | Unknown | | + + +---------+ + Care Team Providers + +------+ + | Care Bounty Hunter Name | Role | Phone | + [...] + + + | Closed | | Orthopedics | Diagnoses | Juab, | [facility] | | | | | Adjustment | Ranjeet Odom MD | [address] | | | | | disorder, | [address] | | | | | unspecified | [address] | Center for | | | | | type | [facility] [place] | Health and | | | | | Procedures | [address] | Healing, | | | | | CONSULT TO | Phone: | Building 1, | | | | | BEHAVIORAL | [phone] | 12th floor | | | | | HEALTH/PSYCH | Fax: | [place], [place] | | | | | IATRY - | [phone] | [address] | | | | | ADULT | | Phone: | | | | | | | [phone] | | | | | | | Fax: | | | | | | | [phone] | +--------+--------+ + + + + Reason for Visit + + + | Reason | Comments | + + + | New patient | Left foot CRPS | | consultation | | + + + Consultation (Routine) +--------+--------+ + + + + | Status | Reason | Specialty | Diagnoses / | Referred By | Referred To | | | | | Procedures | Contact | Contact | +--------+--------+ + + + + | Closed | | Orthopedics | Diagnoses | Daniel, | Vasiliy | | | | | Complex | Alex Alba, | Ranjeet Odom MD | | | | | regional | ,PhD [address] | [address] | | | | | pain | [address] | [address] | | | | | syndrome | [place] | [place], [place] | | | | | type 1 of | Rd | [address] | | | | | left lower | [place], [place] | Phone: | | | | | extremity | [address] | [phone] | | | | | Procedures | Phone: | Fax: | | | | | CONSULT TO | [phone] | [phone] | | | | | ORTHOPEDICS | Fax: | | | | | | AND | [phone] | | | | | | REHABILITATI | | | | | | | ON | | | +--------+--------+ + + + + Encounter Details +--------+---------+ + + + | Date | Type | Department | Care Team | Description | +--------+---------+ + + + | 03/08/ | Office | Orthopaedics | Ranjeet Amanda, | Foot pain, left | | 2018 | Visit | [facility] at [facility] | [address] | (Primary Dx); Left | | | | for Health and | [place], [place] | ankle pain, | | | | Healing [address] | [address] | unspecified | | | | [facility] for | [phone] | chronicity; | | | | Health and Healing, | | Adjustment disorder, | | | | Building | | unspecified type | | | | floor [place], [place] | | | | | | [address] | | | | | | [phone] | | | +--------+---------+ + + + [...] + + + | Blood Pressure | - | - | | + + + + + | Pulse | - | - | | + [...] Weight | 74.8 kg (165 lb) | 03/08/2018 8:09 AM | | | | | PDT | | + + + + + | Height | 165.1 cm (5' 5") | 03/08/2018 8:09 AM | | | | | PDT | | + + + + + | Body Mass Index | 27.46 | 03/08/2018 8:09 AM | | | | | PDT | | + + + + + documented in this encounter Progress Notes Justen Harris MD - 03/08/2018 8:05 AM PDTFormatting of this note might be different fr om the original. SUBJECTIVE: Date of onset/injury ~2010 Chief Complaint: left leg pain, allodynia, presumed complex regional pain syndrome Tracie Farah is a 27 y.o. female who is here for evaluation of possible hardware r emoval of a distal tibia staple in the context of long-standing diagnosed complex regional p ain syndrome of left leg pain of at least 7 years duration. She had a SH left ankle fracture as a child at which time she also underwent fasciotomies in that foot and later a hemiepiph ysiodesis (boone) at the lateral distal tibia for impending varus deformity of the ankle. She describes extreme allodynia and hyperesthesia below that left knee. At times it radiate s up her posterior thigh to buttock area. She says these more severe symptoms were precipita ruddy in ~2006 after a tire iron dropped on her foot. Past treatments included exteremly high-dose narcotics including fentanyl patches, a clinic al trial for neridronate, nerve blocks (peroneal), the latter of which was mildly successful . She currently takes nasal ketamine, which she is holding in her hand during the interview and which she says has changed her symptoms significantly for the better. In 2006 she dropped a tire iron on her foot which she says precipitated the more severe cur rent symptoms. She also has long-standing GI symptoms and abdominal pain, has undergone multiple endoscopi es for this including appendectomy and cholecystectomy as well as a procedure for interstiti al cystitis. Past Medical History: Diagnosis Date Abdominal pain [...] Hemroidectomy Trial spinal cord stimulator leads 08/02/2012 [facility], Surgeon: Janak Riojas MD Cholecystectomy Appendectomy Other l ankle, port Current Outpatient Prescriptions Medication Sig baclofen 10 [...] Do not use longer than 2-3 weeks. ketamine 100 mg/mL injection solution 20 to 30 sprays in each nostril every 3 hrs as ne eded for pain as directed by physician. Concentration is 150mg/mL. Compounded by [employer] ([phone]) levonorgestrel (MIRENA) 20 mcg/24 hr Intrauterine IUD [...] oral recon soln Take as directed by [facility]- 2 gallon bowel prep polyethylene glycol 17 gram/dose oral powder Take 17 g by mouth once daily. promethazine 12.5 mg oral tablet Take 12.5 mg by mouth four times daily as needed for n ausea/vomiting. sucralfate 1 gram oral tablet Take 1 g by mouth four times daily. No current facility-administered medications for this visit. Allergies Allergen Reactions Morphine Anaphylaxis Family History Problem Relation Alcohol/Drug Maternal Grandfather Allergies Maternal Grandfather Arthritis Maternal Grandfather Asthma Maternal Grandfather Stroke Maternal Grandfather Allergies Mother Headache Mother Hypertension Mother Depression Mother Allergies Father Hypertension Father Diabetes Father Allergies Brother Arthritis Maternal Grandmother Headache Maternal Grandmother Arthritis Paternal Grandmother Diabetes Paternal Grandmother Cancer Paternal Grandmother Arthritis Paternal Grandfather Cancer Paternal Grandfather Asthma Brother This was reviewed, and non-contributory Review of Systems: I have reviewed the patient questionnaire including a full 14 Point rev iew of systems, and is negative except as noted above. Physical Exam: GA: Well appearing woman in no acute distress. She is alert and oriented x 3. Affect is appropriate. Cards: regular rate and rhythm per distal pulses Pulm: Breathing comfortably on room air Ht 1.651 m (5' 5") | Wt 74.8 kg (165 lb) | BMI 27.46 kg/(m^2) Left lower extremity: Would not allow touching of foot out of pain. Healed surgical incisions Normal active range of motion Imaging: I reviewed x-rays, and these images showed retained hemiepiphysiodesis staple. Dif fuse osteopenia. Synostosis/fusion of distal tib/fib joint. ASSESSMENT: Ms. Farah's history, physical examination, and imaging findings are consistent with like crps. PLAN: We discussed these findings with Ms. Farah, and reviewed the merits of both conservative and operative management. We do not believe that hardware removal will help her symptoms, a nd may in fact worsen them. It is not entirely clear that her left lower extremity symptoms are 100% consistent with complex regional pain syndrome, either, given her radiation to the hip, bone scan, and history. Her history of abdominal, pain, orthopedic, and pelvic symptoms and multiple surgeries for all of these, are strongly suggestive of a somatoform condition. We discussed the possibilit y of seeing someone in psychiatry for help managing the more cognitive impacts her health chowdhury s had on her and her life. She was very open to this, and we have placed a referral. We are happy to see her back any time she would like. I personally interviewed the patient, [facility] and personally formulated the plan with the resident. I have reviewed, entered my fin dings, and agree with the above documentation. 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 She was reluctant to permit me to touch her ankle making a full exam impossible. I expressed uncertainty that resection of the synostosis would help her. She likely meets abisai stein for somatic symptom disorder. I have made referral to psychiatry, explaining to her that she may wish to speak with someone who may help her cope with how disabling her pain h as become. f/u open ended Ranjeet Amanda M.D. Flight Simulator Teacher Foot and Ankle Surgery Department of Orthopedics & Rehabilitation [facility] [phone] >60 mins face to face consultation was conducted with her and her mother. documented in this en counter Plan of Treatment Not on filedocumented as of this encounter Results X-RAY ANKLE 2 VIEWS LEFT (03/08/2018 7:43 AM PDT) + [...] | | | + +---------+ + + X-RAY FOOT 3 VIEWS LEFT (03/08/2018 7:43 [...] Note | + + | Service Account, Nikolay Res In Interface - 03/08/2018 9:42 AM [...] | + + | Foot pain, left - Primary Pain in limb | + + | Left ankle pain, unspecified chronicity | + + | Adjustment disorder, unspecified type | + + documented in this encounter
--- OUTSIDE RECORDS SUMMARY | ~2020-03-09 | XMS | Encounter Summary ---
Demographics + + + | Address | [address] | | | [place] [address] | + + + | Home Phone [...] Team Providers + +------+ + | Care Cook Vegetable Name | Role | Phone | + [...] 08/11/ | Documentati | KEVIN YANEZ at [facility] | Lab, Gi Procedure | Medical Records | | 2015 | on | [facility] [address] | | Review | | | | [facility] | | | | | | for Health and | | | | | | Healing, Building [address] | | | | | | [place], [place] | | | | | | [address] | | | | | | [phone] | | | +--------+ + + + [...]
--- OUTSIDE RECORDS SUMMARY | ~2020-03-09 | XMS | Encounter Summary ---
Demographics + + + | Address | [address] | | | [place] [address] | + + + | Home Phone [...] Team Providers + +------+ + | Care Chassis Driver Name | Role | Phone | + +------+ + | Justo Vazquez MD | PCP | | + +------+ + Encounter Details +--------+ + + + + | Date | Type | Department | Care Team | Description | +--------+ + + + + | 03/23/ | MyChart | [facility] Comprehensive | Ilene Bright, | Welcome | | 2017 | Encounter | Pain Center at | BENZOL OPERATOR [address] | | | | | [facility] | Ave [place], [place] | | | | | [address] | [address] | | | | | [place] for [facility] | [phone] | | | | | and [facility] | | | | | | 1,15th Floor | | | | | | [place], [place] | | | | | | [address] | | | | | | [phone] | | | +--------+ + + + [...]
--- OUTSIDE RECORDS SUMMARY | ~2020-03-09 | XMS | Encounter Summary ---
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 | | | | Therapy | CRPS | Janak Martinez MD | [address] | | | | | (complex | [address] | | | | | regional | [address] | Mailcode: | | | | | pain | Mailstop | [facility] | | | | | syndrome), | [id number] | for Health | | | | | lower limb | [place], [place] | and Healing, | | | | | Gait | [address] | Building 1 | | | | | disturbance | Phone: | [place], [place] | | | | | Muscle pain | [phone] | [address] | | | | | Procedures | Fax: | Phone: | | | | | PHYSICAL | [phone] | [phone] | | | | | THERAPY | [...] | | | [place] | Ave [place], [place] | syndrome), lower | | | | [address] | [phone] | limb (Primary Dx) | | | | [place] for [facility] | | | | | | and Healing, | | | | | | Building 1, | | | | | | Floor [place], [place] | | | | | | [address] | | | | | | [phone] | | | +--------+---------+ + + + [...] might be different f rom the original. [id number] BRODY FARAH Date of : 1990 Start of care: 02/14/2012 Date of onset: 02/14/2012 Referring/Attending Practitioner: Janak Riojas MD . Primary/Referral Diagnosis/ICD-9: 355.71B CRPS (complex regional pain syndrome), lower limb Insurance: Payor: [facility] Plan: BCBS OUT OF STATE Product Type: PP O Service period from: 02/14/2012 to: 08/12/2012 Number visits used/authorized: 12/26 [facility] PHYSICAL THERAPY PROGRESS NOTE SUBJECTIVE: Age: 21 y.o. Sex: female Chief complaint: No chief complaint on file. 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 She is doing much better ov [facility], possibly because she finished school and so has less stress. She stopped using crutch es in early April (18 days ago) which is less stressful. Now she is working at [employer] 2-3 hours per week, and spends a [...] sometimes pain meds. Social History: lives in [place], 22 years old, not working currently, in [...] or concerns about therapy: she lives in [place]. She is r equesting family members or [...] change in their status. Guillermo Sanon MSPBren [facility] Outpatient Rehabilitation Services Mailcode: Ch3p [address] [facility], 1st Floor [facility] [address] documented in this encounter Plan of Treatment Not on filedocumented as of this encounter Procedures + +--------+ + + + | Procedure Name | Priori | Date/Time | Associated Diagnosis | Comments | | | ty | | | | + +--------+ + + + | [facility] | Routin | 05/03/2012 | CRPS [...]
--- OUTSIDE RECORDS SUMMARY | ~2020-03-09 | XMS | Encounter Summary ---
Demographics + + + | Address | [address] | | | [place] [address] | + + + | Home Phone [...] Team Providers + +------+ + | Care Dishwasher Busser Name | Role | Phone | + [...] | Procedures | [place] | [facility] [place], | | | | | CONSULT TO | [address] | [place] | | | | | PAIN | | [address] | | | | | MANAGEMENT | | Phone: | | | | | | | [phone] | | | | | | | Fax: | | | | | | | [phone] | +--------+--------+ + + + + Encounter Details +--------+---------+ + + + | Date | Type | Department | Care Team | Description | +--------+---------+ + + + | 04/23/ | Office | Pain Center at [facility] | Alex Sanchez, | Complex regional | | 2019 | Visit | [address] | ,PhD [address] [facility] | pain syndrome type 1 | | | | Center for [facility] | [facility] [address] | of left lower | | | | and Healing Building | [facility] [place] [place] | extremity (Primary | | | | 1, 15th Floor | [address] | Dx); Other chronic | | | | [place], [place] | [phone] | pain ; S/P insertion | | | | [address] | | of spinal cord | | | | [phone] | | stimulator | +--------+---------+ + + [...] Instructions Sonia Key - 04/23/2019 1:00 PM PDTPhiliply, Thank you for taking the time to see us in the [facility]. It was great to s ee you. Below is a summary of the discussion that we had today: - I will provide you with a prescription for oxycodone to use only for your monthly pain fl garo. - We reviewed and signed an opioid agreement today. - Please visit the lab on the 1st floor of [facility] to provide a urine sample for [...] fox in our notes. Alex Sanchez MD,PhD [facility] Science [place] signed by Alex Sanchez MD,PhD at 04/14 [...] Aleta Lam MD - 1:00 PM PDT [facility] Return Visit Date: 04/23/2019 Chief Complaint Patient presents with Pain in left leg from the knee downl Back pain where battery pack is located History of Present Illness: Tracie Farah is a 28 year old female, whose last appoi ntment at the [facility] was December 22, 2018, for [...] leg pain due to the boone that [facility] has in place. She is looking into [...] - DRG Spinal cord stimulator trial with So[employer] system (09/25/2018) with 30-40% im provement of typical pain with significant improvement in mobility and function - Left popliteal/sciatic nerve injection AND abdominal scar trigger point injection ( 018) - Spinal cord stimulator trial with Tape TV by Janak Riojas MD (08/02/2012) - Left L3 lumbar sympathetic block by Janak Riojas MD (03/01/2012) Opioid Risk Tool (ORT) 04/23/2019 [facility] Brief Pain Inventory: (ten= worst possible pain [...] Hemroidectomy Trial spinal cord stimulator leads 08/02/2012 [employer], Surgeon: Janak Riojas MD Cholecystectomy Appendectomy Other [...] History Social History Narrative Single. Goes to [place] with a light load. Has been working at [employer], can' t work on [employer]. Has roommates. Allergies Allergen Reactions Morphine Anaphylaxis [...] GRAM-5.86 GRAM SOLUTION Take as directed by [facility] Digestive Health- 2 gallon [...] with nausea Abdominal pain Abdominal scar neuroma [facility] CLINICAL PROTOCOL PATIENT (CLNPRO) [...] and summary of old medical records (source: [employer] as summarized in the body of the [...] We performed DRG SCS trial with the [employer] System on 09/25/2018 which provided her with [...] ago. She has not spoken with the [employer] representatives about this. I encouraged her to [...] Key. Aleta Rebollar MD PAIN CENTER AT [facility] 15TH FLOOR [address] [facility] [address] Mail Code: Ch15p [place] [id number] do cumented in this encounter Plan of [...] + + + + + | [facility] | [address] | [place] [address] | | | SERVICES, CORE | GUILLERMO [...]
--- OUTSIDE RECORDS SUMMARY | ~2020-03-09 | XMS | Encounter Summary ---
Demographics + + + | Address | [address] | | | [place] [address] | + + + | Home Phone [...] Team Providers + +------+ + | Care Clinic Assistant Name | Role | Phone | [...] | | 2017 | | Center at [facility] [address] | | pain | | | | [address] [facility] | | | | | | for Health and | | | | | | Healing, Building 2 | | | | | | [place], [place] | | | | | | [address] | | | | | | [phone] | | | +--------+ + + + [...]
--- OUTSIDE RECORDS SUMMARY | ~2020-03-09 | XMS | Encounter Summary ---
Demographics + + + | Address | [address] | | | [place] [address] | + + + | Home Phone [...] Team Providers + +------+ + | Care Dress Marker Name | Role | Phone | + [...] | | | | pain | [address] | [address] | | | | | Spasticity | [address] | [facility] [place] | | | | | Procedures | [place], [place] | [address] | | | | | CONSULT TO | [address] | Phone: | | | | | PAIN | Phone: | [phone] | | | | | MANAGEMENT | [phone] | Fax: | | | | | | Fax: | [phone] | | | | | | [phone] | | +--------+---------+ + + + + [...] | | MD Celia | MD Brendan [address] | | | | | Fibromyalgia | [address] | [address] | | | | | Spasticity | [address] | [address] | | | | | Epigastric | [place], [place] | Rd [place], | | | | | pain | [address] | [place] | | | | | Procedures | Phone: | [phone] | | | | | REQUEST TO | [phone] | Phone: | | | | | SURGERY | Fax: | [phone] | | | | | SPANISH TEACHER | [phone] | Fax: | | | | | DE INJECT | | [phone] | | | | | TRIGGER | | | | | | | POINT, 1 [place] | | | | | | | 2 DE INJECT | | | | | | [...] Pain Medicine | Diagnoses | Chasity, | Research Physician Chh1 | | | | / Pain | Abdominal | MD Kenny | [address] | | | | Management | pain, | [address] | [address] Center | | | | | unspecified | [facility] | for Health | | | | | location | Rd | and Healing | | | | | Procedures | [place], [place] | Building | | | | | CONSULT TO | [address] | 1,15th Floor | | | | | PAIN | | [place], [place] | | | | | MANAGEMENT | | [address] | | | | | | | Phone: | | | | | | | [phone] | | | | | | | Fax: | | | | | | | [phone] | +--------+--------+ + + + + Encounter Details +--------+---------+ + + + | Date | Type | Department | Care Team | Description | +--------+---------+ + + + | 10/11/ | Office | [facility] | Vern Robertson, | Epigastric pain | | 2017 | Visit | Pain Center at | WATER VESSEL CAPTAIN [address] | (Primary Dx); | | | | [facility] | [place], [place] | Spasticity | | | | [address] | [address] | | | | | [facility] | [phone] | | | | | and Healing Building | | | | | | Floor | | | | | | [place], [place] | | | | | | [address] | | | | | | [phone] | | | +--------+---------+ + + + [...] true warrior! * Please sign up for [employer]. This is the best way to communicate with me. It will save you time in the long run. The procedure you discussed with your doctor is called: Trigger point injection of abdomina l scar. Please make sure this is scheduled with the Box Car Checker. PRE-PROCEDURE INSTRUCTIONS 1. Please bring a rolloff truck driver with you as we may give you medications that impair your ability to drive. This is necessary even if you do not receive sedation. You may take a taxi or ri [employer]Wattcar if you are accompanied by a responsible [...] or blood thinning medications (other than aspirin), [facility] doctor who is doing your procedure will communicate with the provider who is prescribing y our anticoagulant therapy. If you do not have clear instructions on what to do with your an ticoagulant by 2 weeks before your procedure, please contact [facility] to cl arify your instructions. The phone number for questions or concerns is [phone]. * Consider Lidoderm topical or compound prescription [...] muscle hyper tonicity. * Consider increasing your Bard 3 fats. Bard-3 fats are precursors to mediators of inflammation [...] oil if approved by your PCP or composite worker. * Eliminate High Fructose [place] Syrup and Sugar from your diet as [...] review treatment plan. * Follow up with [facility] as needed. It was [...] NP - 1 12/11/2016 1:15 PM PST [facility] Center Return Visit Date: 10/11/2017 Chief Complaint Patient presents with Abdominal pain Back pain Foot pain History of Present Illness: Tracie Farah is a 27 year old female, whose last appoi ntment at the [facility] [place] was 07/11/17 with TERESA Clark, for a [...] She reports multiple diagnostic tests conducted at [facility] in [place], [place] including barium swallow and Hydrogen breath [...] Torodol shots: only form of symptom relief. MANUFACTURING SUPPORT ENGINEER Brief Pain Inventory: (ten= worst possible [...] Hemroidectomy Trial spinal cord stimulator leads 08/02/2012 [facility], Surgeon: Janak Riojas MD Cholecystectomy Appendectomy [...] History Social History Narrative Single. Goes to [employer] with a light load. Has been working at [employer], can' t work on crJukedocsches. Has roommates. Allergies Allergen Reactions Morphine Anaphylaxis [...] by physician. Concentration is 150mg/mL. Compounded by [facility] ) LAMOTRIGINE 200 MG TABLET Take [...] GRAM-5.86 GRAM SOLUTION Take as directed by [facility] Digestive [facility]- 2 gallon bowel prep POLYETHYLENE GLYCOL [...] reviewed. - Review old medical records (from [facility]). Pertinent findings include: abdominal surger y [...] review treatment plan. * Follow up with [facility] as needed. IGuillermo am scribing for Vern Robertson NP on 10/11/2017 I have reviewed and verified the above scribed note of my visit with this patient as record ed by Guillermo Hope. Vern Robertson NP PAIN CENTER AT [facility] 15TH FLOOR [address] Mail Code: Ch15[place] [address] documented in this e ncounter Plan of Treatment Not on filedocumented as of this encounter Visit Diagnoses + + | Diagnosis | + + | Epigastric pain - Primary Abdominal pain, epigastric | + + | Spasticity Abnormal involuntary movements | + + documented in this encounter
--- OUTSIDE RECORDS SUMMARY | ~2020-03-09 | XMS | Encounter Summary ---
Demographics + + + | Address | [address] | | | [place] [address] | + + + | Home Phone [...] Team Providers + +------+ + | Care Spanish Language Lecturer Name | Role | Phone | + +------+ + | Justo Vazquez MD | PCP | | + +------+ + Encounter Details +--------+ + + + + | Date | Type | Department | Care Team | Description | +--------+ + + + + | 12/12/ | Telephone | [facility] | Alex Sanchez, | | | 2019 | | Pain Center at | ,PhD [address] | | | | | [facility] | [address] | | | | | [address] | [place], [place] | | | | | [place] for [facility] | [address] | | | | | and [facility] | [phone] | | | | | 1,15th Floor | | | | | | [place], [place] | | | | | | [address] | | | | | | [phone] | | | +--------+ + + + [...]
--- OUTSIDE RECORDS SUMMARY | ~2020-03-09 | XMS | Encounter Summary ---
Demographics + + + | Address | [address] | | | [place] [address] | + + + | Home Phone [...] Team Providers + +------+ + | Care Center Punch Operator Name | Role | Phone | [...] 10/04/ | Telephone | Dig[facility]ive Health | Aav Carbajal | Test Results; | | 2015 | | Center at [facility] [address] MD | Treatment Planning | | | | [address] [facility] | | | | | | for Health and | | | | | | [facility] 2 | | | | | | [place], [place] | | | | | | [address] | | | | | | [phone] | | | +--------+ + + + [...]
--- OUTSIDE RECORDS SUMMARY | ~2020-03-09 | XMS | Encounter Summary ---
Demographics + + + | Address | [address] | | | [place] [address] | + + + | Home Phone [...] Team Providers + +------+ + | Care Traction Power Engineer Name | Role | Phone | + +------+ + | Justo Vazquez MD | PCP | | + +------+ + Encounter Details +--------+ + + + + | Date | Type | Department | Care Team | Description | +--------+ + + + + | 05/14/ | Telephone | [facility] | Alex Sanchez, | | | 2019 | | Pain Center at | ,PhD [address] | | | | | [facility] | [address] | | | | | [address] | [place], [place] | | | | | [place] for [facility] | [address] | | | | | and [facility] | [phone] | | | | | 1,15th Floor | | | | | | [place], [place] | | | | | | [address] | | | | | | [phone] | | | +--------+ + + + [...]
--- OUTSIDE RECORDS SUMMARY | ~2020-03-09 | XMS | Clinical Summary ---
Demographics + + + | Address | [address] | | | [place] [address] | + + + | Home Phone [...] | Author | [facility] | + + + | Organization | [facility] | + + + | Address | Unknown | + + + | Phone | Unavailable | + + + Support + + +---------+ + | Name | Relationship | Address | Phone | + + +---------+ + | Patricia Colin | ECON | Unknown | | + + +---------+ + Care Team Providers + +------+ + | Care Spinner Cap Frame Name | Role | Phone | + +------+ + | Justo Vazquez MD | PCP | | + +------+ + Source Comments KEVIN is fully live on both [facility] Ambulatory and [facility] InPatient.[facility] Allergies + + + + + + [...] Noted Date | + + + | [facility] CLINICAL PROTOCOL PATIENT (PETER) - Implanted Spinal Cord | 12/14/2018 | | Stimulator | | + + + + + | Overview: Patient has an implanted BillGuard spinal | | cord stimulator. Model#: [id number]. Contact [phone] for | | technical assistance.Contraindications:Sources of strong [...] 09/21/2005 | | | vaccination (#1) | 9 | | | + + + + [...] | Right: | BARD | | | [id number] | | Port-10/05/2016Implanted: | | Chest | | | | 0 / | | 10/05/2016 by Obdulio Simpson, | | | | | | /VIKY | | (Quantity not on file) | | | | | | 204 | + +------+--------+ +--------+--------+--------+ + + | Description:Not Power | | Injectable, Progress record | | faxed from [facility] | | Hospital in [place], [place], | | [facility] RN | + + + +---+---+ +---+--------+--------+ | Slimtip DrgImplanted: Qty: 1 | | | [facility] | | 01/06/ | [id number] | | on 12/05/2018 by Daniel, | | | MEDICAL [place] | | 2020 | 0-50A | | Alex Alba MD,PhD at [facility] | | | | | | /[id number] | | INPATIENT REV LOC | | | | | | 371 / | + +---+---+ +---+--------+--------+ + + | Description:Level 4 | + + + +---+---+ +---+---+--------+ | Slimtip DrgImplanted: Qty: 1 | | | [facility]ICA | | | [id number] | | on 12/05/2018 by Daniel, | | | MEDICAL [place] | | | 0-50A | | Alex Alba MD,PhD at [facility] | | | | | | /[id number] | | INPATIENT REV LOC | | [...] / | | Alex Alba MD,PhD at [facility] | | | | | | | [...] | | | | | | | [address] | | + +--------+ +--------+ + +--------+ | ASSOCIATE CURATOR MEDICAID | ASSOCIATE CURATOR | xxxxxxxx | 11/14/19 | | | [...] | 1990 | [phone] | [place] [address] | | | evita | | | [...]
--- OUTSIDE RECORDS SUMMARY | ~2020-03-09 | XMS | Encounter Summary ---
Demographics + + + | Address | [address] | | | [place] [address] | + + + | Home Phone [...] Team Providers + +------+ + | Care Hydraulic Blocker Name | Role | Phone | + [...] with nausea | [address] | Rd [place], | | | | | Complex | Rd | [place] | | | | | regional | [place], [place] | [address] | | | | | pain | [address] | Phone: | | | | | syndrome | Phone: | [phone] | | | | | type 1 of | [phone] | Fax: | | | | | left lower | Fax: | [phone] | | | | | extremity | [phone] | | | | | | Procedures [...] unspecified | [facility] | [address] | | | | | location | Rd | [facility] | | | | | Procedures | [place], [place] | Rd [place], | | | | | CONSULT TO | [address] | [place] | | | | | PAIN | | [address] | | | | | MANAGEMENT | | Phone: | | | | | | | [phone] | | | | | | | Fax: | | | | | | | [phone] | +--------+--------+ + + + + Encounter Details +--------+---------+ + + + | Date | Type | Department | Care Team | Description | +--------+---------+ + + + | 04/19/ | Office | [facility] | Alex Sanchez, | Intractable cyclical | | 2018 | Visit | Pain Center at | ,PhD [address] | vomiting with | | | | [facility] | [address] | nausea (Primary Dx); | | | | [address] | [place], [place] | Complex regional | | | | [place] for [facility] | [address] | pain syndrome type 1 | | | | and Healing Building | [phone] | of left lower | | | | ,15th Floor | | extremity | | | | [place], [place] | | | | | | [address] | | | | | | [phone] | | | +--------+---------+ + + + [...] might be differe nt from the original. [facility] Return Visit Date: 04/20/2018 Chief Complaint Patient presents with Abdominal pain Back pain Pain in left leg History of Present Illness: Tracie Farah is a 27 year old female, whose last appoi ntment at the [facility] was 12/27/2017, for a [...] not help for the abdominal pain). PAINBRIEF: [facility] Brief Pain Inventory: (ten= worst [...] Hemroidectomy Trial spinal cord stimulator leads 08/02/2012 [facility], Surgeon: Janak Riojas MD Cholecystectomy Appendectomy [...] History Social History Narrative Single. Goes to [employer] with a light load. Has been working at [employer], can' t work on crInveniches. Has roommates. Allergies Allergen Reactions Morphine Anaphylaxis [...] by physician. Concentration is 150mg/mL. Compounded by [employer] ) KETOROLAC IM Inject into the muscle [...] GRAM-5.86 GRAM SOLUTION Take as directed by [facility] Digestive Health- 2 gallon bowel prep [...] to her by Christie Madrid MD in [place], [place]. As she chowdhury s since left the practice, Ms. Farah no longer has a prescriber for this medication. At [facility], we typically do not provide [...] unclear etiology. [facility], and is greatly helped by Toradol, [...] Follow up as needed Alex Sanchez MD,PhD [facility] & Science [facility] Center 3 :41 PM PDTSmithCharline MA [...]
--- OUTSIDE RECORDS SUMMARY | ~2020-03-09 | XMS | Encounter Summary ---
Demographics + + + | Address | [address] | | | [place] [address] | + + + | Home Phone [...] Team Providers + +------+ + | Care Belt Maker Name | Role | Phone | [...] + + | 12/05/ | Hospital | [facility] | Alex Sanchez, | | | 2019 | Encounter | STAY [address] | ,PhD [address] | | | | | Courtney Mailcode: [facility] | [address] | | | | | [facility] | [place], [place] | | | | | Health and [facility], | [address] | | | | | [place] [address] | [phone] | | | | | [place], [place] | | | | | | [address] | | | | | | [phone] | | | +--------+ + + + [...] s/p successful DRG trial lead system with [email or web address] System on 09/25/2018. No changes in H&P, [...] HOSPITAL [place] | | | Tracie Farah [id number] :1990, presents to clinic | | | for: Dorsal root ganglion stimulator implant PROCEDURE: Dorsal | | | root ganglion stimulator implant PRE-OPERATIVE DIAGNOSIS: Complex | | | regional Pain syndrome type 1 of left lower extremity | | | POST-OPERATIVE DIAGNOSIS: Complex regional Pain syndrome type 1 of | | | left lower extremity ATTENDING PHYSICIAN: Alex Sanchez | | | RADIO COMMENTATOR: Arben Valerio MD ANESTHESIA: sedation by IVIS Cole | | | Carmen, supervised by orthopedics pediatric physician Ilir Valdes. | | | FINDINGS: Appropriate [...] to the | | | [employer] advertising account representative. A test stimulation was performed and [...] recovery. Images were saved, and sent to [employer]. | | | Alex Sanchez (attending) was present for the entire procedure. | | | Arben Valerio MD I was present for the entire procedure | | | (spinal cord stimulator implantation with DRG leads at left L4 and | | | L5) and all bocanegra elements of this visit. I reviewed the | | | documentation of the other ANATOMIC PATHOLOGY MANAGER providers and concur with Dr. | | | Iman's findings. I edited his note. Alex Sanchez, | | | ,PhD [facility] Management | | | [facility] | | + + + HCG [...] + + | JOSE ANTONIO MIN | [address] | [place] [address] | | | OF CARE TESTS | [...]
--- OUTSIDE RECORDS SUMMARY | ~2020-03-09 | XMS | Encounter Summary ---
Demographics + + + | Address | [address] | | | [place] [address] | + + + | Home Phone [...] Providers + +------+ + | Care Transmission Builder Name | Role | Phone | [...] [address] | | | | | [facility] | [place], [place] | | | | | [place], [place] | [address] | | | | | [address] | | | | | | [phone] | | | +--------+ + + + [...]
--- OUTSIDE RECORDS SUMMARY | ~2020-03-09 | XMS | Encounter Summary ---
Demographics + + + | Address | [address] | | | [place] [address] | + + + | Home Phone [...] Team Providers + +------+ + | Care Captain Waiter/Waitress Name | Role | Phone | + [...] Rd | | | | | | [place], [place] | | | | | | [address] | | | +--------+ + + + [...]
--- OUTSIDE RECORDS SUMMARY | ~2020-03-09 | XMS | Encounter Summary ---
Demographics + + + | Address | [address] | | | [place] [address] | + + + | Home Phone [...] Team Providers + +------+ + | Care Library Circulation Department Chief Name | Role | Phone | [...] | [facility] | Aleta Rebollar MD [address] | Nausea | | 2018 | | Pain Center at | [address] | | | | | [facility] | [place], [place] | | | | | [address] | [address] | | | | | [facility] | [phone] | | | | | and Healing [facility] | | | | | | Floor | | | | | | [place], [place] | | | | | | [address] | | | | | | [phone] | | | +--------+ + + + [...]
--- OUTSIDE RECORDS SUMMARY | ~2020-03-09 | XMS | Encounter Summary ---
Demographics + + + | Address | [address] | | | [place] [address] | + + + | Home Phone [...] Team Providers + +------+ + | Care Operator Technician Name | Role | Phone | [...] | | | | regional | ,PhD 9061 | | | | | | pain | [address] | | | | | | syndrome | [address] | | | | | | type [address] of | Rd | | | | | | left lower | [place], [place] | | | | | | extremity | [address] | | | | | | Other | Phone: | | | | | | chronic pain | [phone] | | | | | | S/P | Fax: | | | | | | insertion of | [phone] | | | | | | spinal [...] | | | | regional | ,PhD 6291 | | | | | | pain | [address] | | | | | | syndrome | [address] | | | | | | type 1 of | Rd | | | | | | left lower | [place], [place] | | | | | | extremity | [address] | | | | | | Other | Phone: | | | | | | chronic pain | [phone] | | | | | | S/P | Fax: | | | | | | insertion of | [phone] | | | | | | spinal [...] + + | 04/26/ | Telephone | [facility] Comprehensive | Alex Sanchez, | | | 2019 | | Pain Center at | ,PhD [address] | | | | | [facility] | [address] | | | | | [address] | [place], [place] | | | | | [facility] | [address] | | | | | and [facility] | [phone] | | | | | | | | | | | [place], [place] | | | | | | [address] | | | | | | [phone] | | | +--------+ + + + [...]
--- OUTSIDE RECORDS SUMMARY | ~2020-03-09 | XMS | Encounter Summary ---
Demographics + + + | Address | [address] | | | [place] [address] | + + + | Home Phone [...] Team Providers + +------+ + | Care Wage And Salary Specialist Name | Role | Phone | [...] 2016 | | Pain Center at | PERSONAL CARE WORKER [address] | | | | | [facility] | [place], [place] | | | | | [address] | [address] | | | | | [facility] | [phone] | | | | | and [facility] | | | | | | Floor | | | | | | [place], [place] | | | | | | [address] | | | | | | [phone] | | | +--------+ + + + [...]
--- OUTSIDE RECORDS SUMMARY | ~2020-03-09 | XMS | Encounter Summary ---
Demographics + + + | Address | [address] | | | [place] [address] | + + + | Home Phone [...] Providers + +------+ + | Care Software Architect Name | Role | Phone | [...] + + | 08/08/ | Emergency | [facility] Emergency | Mable Villarreal MD | | | 2015 | | Department [address] | [address] [facility] | | | | | [address] | [address] | | | | | [facility] | [place], [place] | | | | | [place], [place] | [address] | | | | | [address] | [phone] | | | | | [phone] | | | | | | | [...] about "Gastroparesis: Care Instructions", log into your Afluenta account at [email or web address]. You can enter [id number] in the AdExtent" search box. Not on Afluenta? Review the Afluenta section of your After Visit Summary for directions on ho w to sign up. [id number] Clio. Care instructions adapted under license by [facility] [facility] [place]. This care instruction is for use with your licensed healthcar e professional. If you have questions about a medical condition or this instruction, always ask your healthcare professional. Clio disclaims any warranty or liabili ty for your use of this information. Content Version: [id number]; Current as of: October 03, 2015 documented [...] | | | LABORATORY | | | NAUR[facility]AN | | | SERVICES, | | | [...] | + + + + + | [facility] | [address] | [place] [address] | | | SERVICES, CORE | GUILLERMO [...] + | [facility] | [address] | [place], [place] | | | CARDIOLOGY | [address] | [address] | | + + + + + [...] + + + + + | [facility]ORY | [address] | [place] [address] | | | SERVICES, CORE | [address] [...] [facility] | [address] | [place] [address] | | | SERVICES, LILLIAN | GUILLERMO [...] KEVIN SHAH | [address] | [place] [address] | | | SERVICES, CORE | PARK [...] | + + + + + | [facility] | [address] | [place] [address] | | | [facility], [facility] | [address] | | | + [...] organisms may result in clinically misleading | [facility] | | information due to the low numbers and /or mixture of organisms | | | present. Recollection is suggested if clinically indicated. | | + + + + + + + + | Performing | Address | City/State/Zipcode | Phone Number | | Organization | | | | + + + + + | [facility] | [address] | [place] [address] | | | [place] | | | | + + + [...] [facility] | [address] | [place] [address] | | | SERVICES, CORE | [address] [...] + + + + + | [facility] | [address] | [place] [address] | | | SERVICES, CORE | [address] | | | + + + + + LIPASE, PLASMA (08/08/2016 2:22 PM PDT) + +---------+ + + + | Component | Value | Ref Range | Performed | Pathologist | | | | | At | Signature | + +---------+ + + + | LIPASE | 116 (L) | 152 - 353 U/L | [facility] | | | (LAB) | | [...] | + + + + + | [facility] | [address] | [place] [address] | | | SERVICES, CORE | [address] [...] | | | LABORATORY | | | NAURUAN | | | SERVICES, | | | [...] | + + + + + | [facility] | [address] | [place] [address] | | | SERVICES, CORE | [address] | | | + + + + + ED INFORMATION EXCHANGE (08/08/2016 12:21 PM PDT) + + + + + + | Component | Value | Ref Range | Performed | Pathologist | | | | | At | Signature | + + + + + + | [facility] | [id number] | | COLLECTIVE | | | | [id number] | | MEDICAL | | | | [...] ------- ---- | | | 08/08/2016 12:21 [facility] and | | | [facility] [place] Emergency [address]. abd pain | | | 08/04/2016 03:50 [facility] | | [place] Emergency ABD PAIN,VOMITING 06/26/2016 22:44 | | | [facility] [place] | | | Emergency -Acquired absence of other specified parts of | | | | | | digestive | | | tract | | | | | | -Gastroparesis | | | | | | -Unspecified abdominal pain | | | | | | -Gastro-esophageal reflux disease without | | | esophagitis | | | | | | -Other machine long goods helper (current) drug therapy 06/22/2016 17:35 [facility] [place] [facility] | [facility] -abd pain, "I have gastroparesis", since , seen | | | | | | at St | | | [facility] yesterday. has been to the er | | | | | | several times | | | | | | -Abdominal Pain | | | | | | -Gastroparesis 06/19/2016 | | | 04:51 [facility] [place] | | | [place] Emergency -Gastroparesis | | | | | | -Unspecified abdominal pain | | | | | | -Other machine long goods helper | | | (current) drug therapy | | | | | | -Acquired absence of other specified parts of | | | | | | digestive tract | | | 06/18/2016 07:18 [facility] | | | [place] Emergency [...] Location ------ --------- 1 | | | [facility] 1 | | | [facility] 8 [facility] 10 | | | Total Note: [...] COLLECTIVE MEDICAL | [address] | [place], [place] | [phone] | | TECHNOLOGIES | [address] | [address] | | + + + + + [...]
--- OUTSIDE RECORDS SUMMARY | ~2020-03-09 | XMS | Encounter Summary ---
Demographics + + + | Address | [address] | | | [place] [address] | + + + | Home Phone [...] Team Providers + +------+ + | Care Events Manager Name | Role | Phone | + +------+ + | Justo Vazquez MD | PCP | | + +------+ + Encounter Details +--------+ + + + + | Date | Type | Department | Care Team | Description | +--------+ + + + + | 07/30/ | Telephone | [facility] | Alex Sanchez, | | | 2019 | | Pain Center at | ,PhD [address] | | | | | [facility] | [address] | | | | | [address] | [place], [place] | | | | | [place] for [facility] | [address] | | | | | and [facility] | [phone] | | | | | 1,15th Floor | | | | | | [place], [place] | | | | | | [address] | | | | | | [phone] | | | +--------+ + + + [...]
--- OUTSIDE RECORDS SUMMARY | ~2020-03-09 | XMS | Encounter Summary ---
Demographics + + + | Address | [address] | | | [place] [address] | + + + | Home Phone | | + + + | Preferred Language | Unknown | + + + | Marital Status | Single | + + + | Hoahaoism Affiliation | [id number] | + + + | Race | Unknown | + + + | Ethnic Group | Unknown | + + + Author + + + | Author | [facility] | | | and [place] | + + + | Organization | [facility] | | | and [place] [...] [place] | | | | | [address] | | + + + + + | Bryant Farah | ECON | Unknown | | + + + + + Care Team Providers + +------+ + | Care Electronic Pagination System Operator Name | Role | Phone | + +------+ + PCP | Unavailable | + +------+ + Encounter Details +--------+ + + + + | Date | Type | Department | Care Team | Description | +--------+ + + + + | 03/16/ | Hospital | [facility] | Conversion | Back pain | | 2013 | Encounter | CONVERSION [address] | Transaction, | | | | | [address] | Provider Unknown | | | | | [place], [place] | [phone] | | | | | [address] | | | | | | [phone] | | | +--------+ + + + [...]
--- OUTSIDE RECORDS SUMMARY | ~2020-03-09 | XMS | Encounter Summary ---
Demographics + + + | Address | [address] | | | [place] [address] | + + + | Home Phone [...] + +------+ + | Care Director Of Strategic Initiatives Name | Role | Phone | + [...] | | | regional | [place] | [address] | | | | | pain | FAMILY | [address] | | | | | syndrome), | MEDICINE P | [address] | | | | | lower limb | [address] | [place], [place] | | | | | Pain in | [place], | [address] | | | | | joint, lower | [place] [address] | Phone: | | | | | leg | Phone: | [phone] | | | | | Procedures | [phone] | Fax: | | | | | REQUEST TO | Fax: | [phone] | | | | | SURGERY | [phone] | | | | | | TRANSMISSION AND COORDINATION ENGINEER | | | +--------+--------+ + + + [...] | | | sympathetic | [place] | [address]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 | FAMILY | [address] | | | | | of lower | MEDICINE P | [address] | | | | | limb | [address] | [place], [place] | | | | | | [place], | [address] | | | | | | [place] [address] | Phone: | | | | | | Phone: | [phone] | | | | | | [phone] | Fax: | | | | | | Fax: | [phone] | | | | | | [phone] | | +--------+--------+ + + + + Encounter Details +--------+---------+ + + + | Date | Type | Department | Care Team | Description | +--------+---------+ + + + | 06/06/ | Office | [facility] Comprehensive | Dale Cantu, | CRPS (complex | | 2011 | Visit | Pain Center at | MD [address] [facility] | regional pain | | | | [facility] | [facility] [address] | syndrome), lower | | | | [address] | [place], [place] | limb; Pain in joint, | | | | [facility] | [address] | lower leg | | | | and [facility] | [phone] | | | | | | | | | | | [place], [place] | | | | | | [address] | | | | | | [phone] | | | +--------+---------+ + + + [...] Dale Cantu MD - 06/06/2012 11:49 [facility] Pre-Procedure Instructions: The procedure you discussed with your doctor is called: SCS TRIAL LUMBAR [facility]. Please make sure this is scheduled with the Knit Goods Washer. Please bring a driver's education instructor with you. We may give you medications that make you drowsy or otherw ise unsafe to drive. If you do not have a driver's education instructor, we will not be able to do your procedure. DO NOT EAT ANYTHING AFTER MIDNIGHT If your appointment is after 1 PM , you may have a very light, low fat breakfast, such as h mcfp a piece of dry toast or a [...] PLEASE CONTACT THE COMPREHENSIVE PAIN CENTER AT [phone] ([phone]) FOR QUESTIONS OR IF YOU NEED TO CANCEL YOUR APPOINTMENT. [facility] Comprehensive Pain Center documented in [...] not signed. Given information. DALE CANTU MD Blood Bank Business Manager, [facility] Certified Dietary Manager, Pain Medicine Professor, Anesthesiology & Perioperative Medicine ollHomer manriquez MD - 06/06/2012 11:17 AM PDT [facility] Comprehensive Pain Center Return Visit [...] and a pain drawing which I reviewed. [facility] Brief Pain Inventory: (ten= worst possible pain or complete interference) Right Now: 8 (06/06/121101) Least in 24 hours: 8 (06/06/12 1102) Worst in 24 hours: 9 (06/06/121101) Average: [...] The Review of Systems obtained by the MARKET RELATIONSHIP MANAGER was reviewed. Additional Review of Systems: Bones, [...] up with Dr. Dale Cantu at the [facility] today for left foot CRPS which [...] therapy Homer Elaine MD Pain Medicine Fellow [facility] Pain [place] - 11:07 AM PDTCMA History: [...]
--- OUTSIDE RECORDS SUMMARY | ~2020-03-09 | XMS | Encounter Summary ---
Demographics + + + | Address | [address] | | | [place] [address] | + + + | Home Phone [...] Team Providers + +------+ + | Care Electrodynamicist Name | Role | Phone | + [...] | Request (ketamine) | | | | [facility] | [address] | | | | | [address] | [place], [place] | | | | | [facility] | [address] | | | | | and [facility] | [phone] | | | | | ,15th Floor | | | | | | [place], [place] | | | | | | [address] | | | | | | [phone] | | | +--------+ + + + [...]
--- OUTSIDE RECORDS SUMMARY | ~2020-03-09 | XMS | Encounter Summary ---
Demographics + + + | Address | [address] | | | [place] [address] | + + + | Home Phone [...] Team Providers + +------+ + | Care High School Academic Coach Name | Role | Phone | + +------+ + | Justo Vazquez MD | PCP | | + +------+ + Encounter Details +--------+ + + + + | Date | Type | Department | Care Team | Description | +--------+ + + + + | 06/12/ | Hospital | Radiology/Imaging | Alex Sanchez, | | | 2018 | Encounter | Lab at [facility] [address] | ,PhD [address] [facility] | | | | | [facility] | [facility] | | | | | [facility] and | [facility] [place] | | | | | [facility], Building 1, | [address] | | | | | [facility] Floor | [phone] | | | | | [place], [place] | | | | | | [address] | | | | | | [phone] | | | +--------+ + + + [...]
--- OUTSIDE RECORDS SUMMARY | ~2020-03-09 | XMS | Encounter Summary ---
Demographics + + + | Address | [address] | | | [place] [address] | + + + | Home Phone [...] Team Providers + +------+ + | Care Welding Equipment Sales Representative Name | Role | Phone [...] | 2017 | on | Center at [facility] [address] | [address] | | | | | [address] [place] | [facility] [place] | | | | | for Health and | [address] | | | | | Healing, Building 2 | [phone] | | | | | [place], [place] | | | | | | [address] | | | | | | [phone] | | | +--------+ + + + [...]
--- OUTSIDE RECORDS SUMMARY | ~2020-03-09 | XMS | Encounter Summary ---
Demographics + + + | Address | [address] | | | [place] [address] | + + + | Home Phone [...] Team Providers + +------+ + | Care Escalator Operator Name | Role | Phone | [...] 2016 | | Pain Center at | IMAGING ANALYST [address] | | | | | [facility] | [place], [place] | | | | | [address] | [address] | | | | | [facility] | [phone] | | | | | and [facility] | | | | | | Floor | | | | | | [place], [place] | | | | | | [address] | | | | | | [phone] | | | +--------+ + + + [...]
--- OUTSIDE RECORDS SUMMARY | ~2020-03-09 | XMS | Encounter Summary ---
Demographics + + + | Address | [address] | | | [place] [address] | + + + | Home Phone [...] Providers + +------+ + | Care Production Graphic Designer Name | Role | Phone | + +------+ + | Justo Vazquez MD | PCP | | + +------+ + Encounter Details +--------+------+ + + + | Date | Type | Department | Care Team | Description | +--------+------+ + + + | 04/23/ | Lab | Laboratory at [facility] | | Other chronic pain ; | | 2018 | | [address] | | Complex regional | | | | Center for [facility] | | pain syndrome type 1 | | | | and Healing, | | of left lower | | | | Building 2 | | extremity | | | | [place], [place] | | | | | | [address] | | | | | | [phone] | | | +--------+------+ + + + [...] LABORATORY | | Barbiturates >=200 ng/mL | [facility] | | Benzodiazepine >=200 ng/mL Cocaine | [...] | KEVIN SHAH | [address] | [place] [address] | | | SERVICES, LILLIAN | [address] [...]
--- OUTSIDE RECORDS SUMMARY | ~2020-03-09 | XMS | Encounter Summary ---
Demographics + + + | Address | [address] | | | [place] [address] | + + + | Home Phone [...] Providers + +------+ + | Care Belt Glass Sander Name | Role | Phone | + +------+ + | Justo Vazquez MD | PCP | | + +------+ + Encounter Details +--------+ + + + + | Date | Type | Department | Care Team | Description | +--------+ + + + + | 06/07/ | Telephone | [facility] | Alex Sanchez, | | | 2019 | | Pain Center at | ,PhD [address] | | | | | [facility] | [address] | | | | | [address] | [place], [place] | | | | | [place] for [facility] | [address] | | | | | and [facility] | [phone] | | | | | 1,15th Floor | | | | | | [place], [place] | | | | | | [address] | | | | | | [phone] | | | +--------+ + + + [...]
--- OUTSIDE RECORDS SUMMARY | ~2020-03-09 | XMS | Encounter Summary ---
Demographics + + + | Address | [address] | | | [place] [address] | + + + | Home Phone [...] Team Providers + +------+ + | Care Aesthetics Instructor Name | Role | Phone | [...] + + | 08/03/ | Refill | [facility] | Alex Sanchez, | Refill Request | | 2018 | | Pain Center at | ,PhD [address] | (ketamine) | | | | [facility] | [facility] | | | | | [address] | [place], [place] | | | | | [facility] | [address] | | | | | and [address] [facility] | [phone] | | | | | 15 Floor | | | | | | [place], [place] | | | | | | [address] | | | | | | [phone] | | | +--------+--------+ + + + [...]
--- OUTSIDE RECORDS SUMMARY | ~2020-03-09 | XMS | Encounter Summary ---
Demographics + + + | Address | [address] | | | [place] [address] | + + + | Home Phone [...] Providers + +------+ + | Care Civil Engineering Teacher Name | Role | Phone | + +------+ + | Justo Vazquez MD | PCP | | + +------+ + Encounter Details +--------+ + + + + | Date | Type | Department | Care Team | Description | +--------+ + + + + | 12/12/ | Telephone | [facility] | Alex Sanchez, | | | 2019 | | Pain Center at | ,PhD [address] | | | | | [facility] | [address] | | | | | [address] | [place], [place] | | | | | [place] for [facility] | [address] | | | | | and [facility] | [phone] | | | | | 1,15th Floor | | | | | | [place], [place] | | | | | | [address] | | | | | | [phone] | | | +--------+ + + + [...]
--- OUTSIDE RECORDS SUMMARY | ~2020-03-09 | XMS | Encounter Summary ---
Demographics + + + | Address | [address] | | | [place] [address] | + + + | Home Phone [...] Team Providers + +------+ + | Care Toxicology Teacher Name | Role | Phone | [...] + + | 10/30/ | Refill | [facility] Comprehensive | Alex Sanchez, | Refill Request | | 2018 | | Pain Center at | ,PhD [address] | | | | | [facility] | [address] | | | | | [address] | [place], [place] | | | | | [facility] | [address] | | | | | and Martina [facility] | [phone] | | | | | Floor | | | | | | [place], [place] | | | | | | [address] | | | | | | [phone] | | | +--------+--------+ + + + [...]
--- OUTSIDE RECORDS SUMMARY | ~2020-03-09 | XMS | Encounter Summary ---
Demographics + + + | Address | [address] | | | [place] [address] | + + + | Home Phone [...] Team Providers + +------+ + | Care Awning Assembler Name | Role | Phone | [...] | Encounter | Lab at [facility] [address] | [address] | | | | | [address] [facility] | [place], [place] | | | | | for Health and | [address] | | | | | Healing, Building 1, | [phone] | | | | | [facility] Floor | | | | | | [facility] [place] | | | | | | [address] | | | | | | [phone] | | | +--------+ + + + [...] Note | + + | Service Account, LightArrow Res In Interface - 03/08/2018 9:42 AM [...]
--- OUTSIDE RECORDS SUMMARY | ~2020-03-09 | XMS | Encounter Summary ---
Demographics + + + | Address | [address] | | | [place] [address] | + + + | Home Phone [...] Team Providers + +------+ + | Care Code Clerk Name | Role | Phone | [...] + + | 08/08/ | Emergency | [facility] Emergency | Mable Villarreal MD | | | 2015 | | Department [address] | [address] [facility] | | | | | [address] | [address] | | | | | [facility] | [place], [place] | | | | | [place], [place] | [address] | | | | | [address] | [phone] | | | | | [phone] | | | | | | | [...] about "Gastroparesis: Care Instructions", log into your [employer] Is Good account at [email or web address]. You can enter M106 in the BIXI" search box. Not on [employer] Is Good? Review the [employer] Is Good section of your After Visit Summary for directions on ho w to sign up. [id number] [employer]. Care instructions adapted under license by [facility] [employer]. This care instruction is for use with your licensed healthcar e professional. If you have questions about a medical condition or this instruction, always ask your healthcare professional. [employer] disclaims any warranty or liabili ty for your use of this information. Content Version: 11.0.114236; Current as of: October 03, 2015 documented [...] | | | LABORATORY | | | NIGERIAN | | | SERVICES, | | | [...] | + + + + + | [facility] | [address] | [place] [address] | | | SERVICES, CORE | GUILLERMO [...] DEPT OF | [address] | [place], [place] | | | CARDIOLOGY | [address] | [address] | | + + + + + [...] | + + + + + | [facility] | [address] | [place] [address] | | | SERVICES, CORE | [address] [...] [facility] | [address] | [place] [address] | | | SERVICES, LILLIAN | GUILLERMO [...] KEVIN SHAH | [address] | [place] [address] | | | SERVICES, CORE | PARK [...] | + + + + + | [facility] | [address] | [place] [address] | | | [facility] [place] [place] | [address] | | | + [...] may result in clinically misleading | [facility] | | information due to the low numbers and /or mixture of organisms | | | present. Recollection is suggested if clinically indicated. | | + + + + + + + + | Performing | Address | City/State/Zipcode | Phone Number | | Organization | | | | + + + + + | [facility] | [address] | [place] [address] | | | [place] | | | | + + + [...] [facility] | [address] | [place] [address] | | | SERVICES, CORE | [address] [...] | + + + + + | [facility] | [address] | [place] [address] | | | SERVICES, CORE | [address] | | | + + + + + LIPASE, PLASMA (08/08/2016 2:22 PM PDT) + +---------+ + + + | Component | Value | Ref Range | Performed | Pathologist | | | | | At | Signature | + +---------+ + + + | LIPASE | 116 (L) | 152 - 353 U/L | [facility] | | | (LAB) | | | [...] | + + + + + | [facility] | [address] | [place] [address] | | | SERVICES, CORE | GUILLERMO [...] | | | LABORATORY | | | NIGERIAN | | | SERVICES, | | | [...] | + + + + + | [facility] | [address] | [place] [address] | | | SERVICES, CORE | [address] | | | + + + + + ED INFORMATION EXCHANGE (08/08/2016 12:21 PM PDT) + + + + + + | Component | Value | Ref Range | Performed | Pathologist | | | | | At | Signature | + + + + + + | [facility]FF [facility] | [id number] | | COLLECTIVE | | | | [id number] | | MEDICAL | | | | [...] ------- ---- | | | 08/08/2016 12:21 [facility] and | | | [facility] [place] Emergency [id number]. abd pain | | | 08/04/2016 03:50 [facility] | | | [place] Emergency ABD PAIN,VOMITING 06/26/2016 22:44 | | | [facility] [place] | | | Emergency -Acquired absence of other specified parts of | | | | | | digestive | | | tract | | | | | | -Gastroparesis | | | | | | -Unspecified abdominal pain | | | | | | -Gastro-esophageal reflux disease without | | | esophagitis | | | | | | -Other paper wood cutter (current) drug therapy 06/22/2016 17:35 | | | [facility] [place] | | | Emergency -abd pain, "I have gastroparesis", since , seen | | | | | | at St | | | [facility] yesterday. has been to the er | | | | | | several times | | | | | | -Abdominal Pain | | | | | | -Gastroparesis 06/19/2016 | | | 04:51 [facility] [place] | | | [place] Emergency -Gastroparesis | | | | | | -Unspecified abdominal pain | | | | | | -Other paper wood cutter | | | (current) drug therapy | | | | | | -Acquired absence of other specified parts of | | | | | | digestive tract | | | 06/18/2016 07:18 [facility] | | | [place] Emergency [...] Location ------ --------- 1 | | | [facility] 1 | | | [facility] 8 [facility] 10 | [...] COLLECTIVE MEDICAL | [address] | [place], [place] | [phone] | | TECHNOLOGIES | [address] | [address] | | + + + + + [...]
--- OUTSIDE RECORDS SUMMARY | ~2020-03-09 | XMS | Encounter Summary ---
Demographics + + + | Address | [address] | | | [place] [address] | + + + | Home Phone [...] Team Providers + +------+ + | Care Elementary Substitute Teacher Name | Role | Phone | [...] | | Ava Torres, | [address] | | | | | Constipation | MD [address] | [address] | | | | | , | [address] | [place] for | | | | | unspecified | [address] | Health and | | | | | constipation | [place], [place] | Healing, | | | | | type | [address] | [address] | | | | | Abdominal | | [place], [place] | | | | | pain, | | [address] | | | | | unspecified | | Phone: | | | | | location | | [phone] | | | | | Procedures | | Fax: | | | | | CONSULT TO | | [phone] | | | | | GI PROCEDURE | | | | | | | UNIT: | | | | | | | COLONOSCOPY | | | | | | | [place] | | | | | | | [...] Center at [facility] [address] | MD Melissa | Vomiting (Bile) | | | | [facility] | | | | | | for Health and | | | | | | Healing, [address] | | | | | | [place], [place] | | | | | | [address] | | | | | | [phone] | | | +--------+ + + + [...]
--- OUTSIDE RECORDS SUMMARY | ~2020-03-09 | XMS | Encounter Summary ---
Demographics + + + | Address | [address] | | | [place] [address] | + + + | Home Phone [...] Providers + +------+ + | Care Quality Lab Technician Name | Role | Phone | [...] | CRPS | Dale Martinez MD | [facility] [address] | | | | | (complex | [address] | Pavilion | | | | | regional | [address] | [address] | | | | | pain | Mailstop | [place] Vanegas, | | | | | syndrome), | [address]308 | Basement | | | | | lower limb | [place], [place] | [place], [place] | | | | | Procedures | [address] | [address] | | | | | NM BONE &/[place] | Phone: | Phone: | | | | | JOINT | [phone] | [phone] | | | | | IMAGING 3 | Fax: | Fax: | | | | | PHASE | [phone] | [phone] | +--------+--------+ + + + + Consult [...] | | | regional | [place] | [address] | | | | | pain | FAMILY | [address] | | | | | syndrome), | MEDICINE P | [id number] | | | | | lower limb | [address] | [place], [place] | | | | | Gait | [place], | [address] | | | | | disturbance | [place] [address] | Phone: | | | | | Muscle pain | Phone: | [phone] | | | | | Procedures | [phone] | Fax: | | | | | REQUEST TO | Fax: | [phone] | | | | | SURGERY | [phone] | | | | | | MANAGER CUSTOM | | | +--------+--------+ + + + + Consultation (Routine) +--------+--------+ + + + + | Status | Reason | Specialty | Diagnoses / | Referred By | Referred To | | | | | Procedures | Contact | Contact | +--------+--------+ + + + + | Closed | | Psychology / | Diagnoses | Beulah, | Partition Assembler Psych | | | | Pain | CRPS | Dale Martinez MD | [address] | | | | Management | (complex | [address] | | | | | regional | [address] | Center for | | | | | pain | [address]stop | Health and | | | | | syndrome), | [id number] | Healing | | | | | lower limb | [place], [place] | Building [address], | | | | | Gait | [address] | [address] Floor | | | | | disturbance | Phone: | [place], [place] | | | | | Muscle pain | [phone] | [address] | | | | | Procedures | Fax: | Phone: | | | | | CONSULT TO | [phone] | [phone] | | | | | PAIN CENTER | | Fax: | | | | | | | [phone] | +--------+--------+ + + + + Physical Therapy (Routine) +--------+--------+ + + + + | Status | Reason | Specialty | Diagnoses / | Referred By | Referred To | | | | | Procedures | Contact | Contact | +--------+--------+ + + + + | Closed | | Physical | Diagnoses | Beulah, | Edu Pt Partition Assembler | | | | Therapy | CRPS | Dale Martinez MD | [address] | | | | | (complex | [address] | | | | | regional | [address] | Mailcode: | | | | | pain | Mailstop | CH3P Proctor | | | | | syndrome), | [id number] | for Health | | | | | lower limb | [place], [place] | and Healing, | | | | | Gait | [address] | [facility] 1 | | | | | disturbance | Phone: | [place], [place] | | | | | Muscle pain | [phone] | [address] | | | | | Procedures | Fax: | Phone: | | | | | PHYSICAL | [phone] | [phone] | | | | | THERAPY | [...] | | | sympathetic | [place] | [address]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 | FAMILY | [address] | | | | | of lower | MEDICINE P | [address] | | | | | limb | [address] | [place], [place] | | | | | | [place], | [address] | | | | | | [place] [address] | Phone: | | | | | | Phone: | [phone] | | | | | | [phone] | Fax: | | | | | | Fax: | [phone] | | | | | | [phone] | | +--------+--------+ + + + + Encounter Details +--------+---------+ + + + | Date | Type | Department | Care Team | Description | +--------+---------+ + + + | 02/13/ | Office | [facility] | Dale Cantu, | CRPS (complex | | 2011 | Visit | Pain Center at | MD [address] | regional pain | | | | [facility] | [facility] 945573 | syndrome), lower | | | | [address] | [place], [place] | limb; Gait | | | | Center for [facility] | [address] | disturbance; Muscle | | | | and Healing Building | [phone] | pain; Adjustment | | | | 15th Floor | | reaction | | | | [place], [place] | | | | | | [address] | | | | | | [phone] | | | +--------+---------+ + + + [...] Diagnostic evaluation: Records from CRPS program at [facility]. 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 2. [...] that the patien t have a signed [facility] Material Risk Notice, agree to whatever [...] sintia sure this is scheduled with the Accordion Repairer. Please bring a owner operator tanker truck driver with you. We may give you medications that make you drowsy or otherw ise unsafe to drive. If you do not have a owner operator tanker truck driver, we will not be able to do your procedure. DO NOT EAT ANYTHING AFTER MIDNIGHT If your appointment is after 1 PM , you may have a very light, low fat breakfast, such as h intermediate a piece of dry toast or a [...] PLEASE CONTACT THE [facility] PAIN CENTER AT [phone] ([phone]) FOR QUESTIONS OR IF YOU NEED TO CANCEL YOUR APPOINTMENT. [facility] documented in this encounter [...] for pain management consultation by [facility]JORN [facility] [address] [place] [address] Reason for visit Chief Complaint Patient presents with Pain in left leg Ankle pain left History of Present Illness: Tracie Farah is a 21 year old female with pain locate d in left lower extremity. She has been diagnosed with CRPS. She is referred to [facility] for consultation regarding this ongoing pain problem with the following [facility] issues to be addressed: Other options [...] by several orthopedic surgeons, Dr. Charles in [place], physical therapy, Occupational Therapy. Diagnostic and radiologic [...] no pain relief. Admitted to the inpatient [facility] program for 1 month in [...] entin, pregabalin, topiramate, tramadol, multiple opioids. Current Melfa about 6-8/day. St arting duloxetine, at 30 mg/day. She feels that the most effective medication treatments ar e or have been opioids. As a result of her pain, Ms. Farah notes multiple changes in her life, including: "I don 't have a life, can't work, can't go to school." Poor mood, sleep, activity. Using crutche s recently because of pain flare. BUSHEL GIRL Brief Pain Inventory: (ten= worst possible pain [...] History Social History Narrative Single. Goes to [employer] with a light load. Has been working at [employer], can' t work on [employer]. Has roommates. Current Medication List 02/14/12 9:50 [...] Anaphylaxis As part of today's visit the [facility] new patient questionnaire was review [...] ricks, the pediatric inpatient pain program at [facility], and two attempted lumbar sympathetic blocks. [...] CRPS patients (Loretta Rousseau, et al. Katrina Forging Press Setter Up Med. 2010;152: 152-158). Other treatment options for the future: Spinal cord stimulation (SCS) has good evidence f or providing long term care social worker relief in CRPS (Complex Regional Pain Syndrome) [...] [facility]: [facility] Suggest three ph ase bone [...] employed by the psychologists here at the [facility]. ORDER PLACED 2.2 Physical therapy can reduce pain and improve functional status. Suggest Guillermo Sanon . ORDER PLACED 3. Medication suggestions: 3.1 Continue titrating up duloxetine. 3.2 As for any patient being managed with chronic opioids, we do recommend that the patien t have a signed [facility] Material Risk Notice, agree to whatever [...] her PCP, BJORN Villanueva. DALE CANTU MD Brand Strategy Manager, [facility] Nicker And Breaker, Pain Medicine Professor, Anesthesiology & Perioperative Medicine [...] | | | | | signed / Hmoer | | | | | | Jeremias [...] | + +---------+ + + | [facility] DEPARTMENT OF | | | | | [...]
--- OUTSIDE RECORDS SUMMARY | ~2020-03-09 | XMS | Encounter Summary ---
Demographics + + + | Address | [address] | | | [place] [address] | + + + | Home Phone [...] Team Providers + +------+ + | Care Silica Mixer Operator Name | Role | Phone | [...] | | 2016 | | Center at [facility] [address] | MD Melissa | | | | | [facility] | | | | | | for Health and | | | | | | Healing, [address] | | | | | | [place], [place] | | | | | | [address] | | | | | | [phone] | | | +--------+ + + + [...]
--- OUTSIDE RECORDS SUMMARY | ~2020-03-09 | XMS | Encounter Summary ---
Demographics + + + | Address | [address] | | | [place] [address] | + + + | Home Phone [...] Providers + +------+ + | Care Director Regulatory Agency Name | Role | Phone | + +------+ + | Allegra Gandhi | PCP | | + +------+ + Reason for Visit + + + | Reason | Comments | + + + | Foot pain | left | + + + | Procedure | [...] | | | regional | [place] | [address] | | | | | pain | FAMILY | [facility] | | | | | syndrome), | MEDICINE P | [id number] | | | | | lower limb | [address] | [place], [place] | | | | | Gait | [place], | [address] | | | | | disturbance | [place] [address] | Phone: | | | | | Muscle pain | Phone: | [phone] | | | | | Procedures | [phone] | Fax: | | | | | REQUEST TO | Fax: | [phone] | | | | | SURGERY | [phone] | | | | | | CAREER TECHNICAL EDUCATION INSTRUCTOR | | | +--------+--------+ + + + + Encounter Details +--------+ + + + + | Date | Type | Department | Care Team | Description | +--------+ + + + + | 03/01/ | Procedure | [facility] at [facility] | Dale Cantu, | Foot pain (left); | | 2011 | | [address] | [address] | Procedure | | | | [facility] | [address] | | | | | and Healing Building | [place], [place] | | | | | Floor | [address] | | | | | [place], [place] | [phone] | | | | | [address] | | | | | | [phone] | | | +--------+ + + + [...] + + + | Blood Pressure | 137/63 | 03/01/2012 12:45 PM | | | | | PDT | | + + + + + | Pulse | 93 | 03/01/2012 12:45 PM | | | | | PDT | | + + + + + | Temperature | 36.9 C (98.4 F) | 03/01/2012 12:45 PM | | | | | PDT | | + + + + + | Respiratory Rate | 18 | 03/01/2012 12:45 PM | | | | | PDT | | + + + + + | Oxygen Saturation | 97% | 03/01/2012 12:45 PM | | | | | PDT | | + + + + + | Inhaled Oxygen | - | - | | | Concentration | | | | + + + + + | Weight | 77.1 kg (170 lb) | 03/01/2012 12:45 PM | | | | | PDT | | + + + + + | Height | 165.1 cm (5' 5") | 03/01/2012 12:45 PM | | | | | PDT | | + + + + + | Body Mass Index | 28.29 | 03/01/2012 12:45 PM | | | | | PDT | | + + + + + documented in this encounter Patient Instructions Patient Instructions Lakeisha Noe MD - 02/29/2012 5:44 PM PDTFormatting of this note migh t be different from the original. [facility] Patient Instructions - Post Interventional Procedure Date: 03/01/2012 Name: Tracie Farah Date of : 1990 Procedure Performed: LUMBAR SYMPATHETIC BLOCK. Procedure Provider: Dale Cantu If you have any problems you believe are associated with your procedure tonight, Please call the Hospital Gas Operations Analyst, and ask for the Pain Management Consu ltant. If you have problems or questions between 9:00 am and 4:00 pm, Please call the [facility] Nurse Triage Line, . If you go to an Emergency Room, please bring this form with you. DISCHARGE INSTRUCTIONS The IV site may feel sore until tomorrow. If the site becomes hot, red swollen, or increa singly painful, or if the skin breaks open, call the phone number listed above, and/or go to your family doctor or to an Emergency room. If you have a fever or chills in the next 48 hours, call the phone number listed above, and /or go to an Emergency Room. The procedure site may be tender for a few days. Use ice packs and/or warm compresses to t he area as needed. You may bathe or shower. If the procedure site becomes red or swollen, or if the pain increases, please call the phone number listed above, and/or go to an Emergen cy Room. Activity Instructions: Please fill out your pain diary every hour until bedtime. The results of your pain diary will determine whether subsequent lumbar sympathetic block will be needed in your care. The area of your procedure may be numb or weak for several hours. You should not drive for 6 hours after the procedure. You may resume normal activities 12 hours after the procedure . Diet Instructions: Resume your regular diet. Medication Instructions: Resume all your regular medications. Instructions printed and reviewed with the patient. Copy of instructions given to the larry ent. LAKEISHA NOE MD [facility] documented in this encounter Progress Notes Dale Cantu MD - 03/01/2012 2:21 PM PDTI was present for the entire procedure (lumbar sympathetic block) and all bocanegra elements of this visit. I reviewed the documentation of the other CLAM DREDGER providers and concur with Dr. Noe's findings. I edited her note. Ms. Farah exp erienced a 6 degree centigrade temperature rise, no motor or sensory block, and no immediate pain relief. CRPS that does not respond to sympathetic block may be more difficult to nicolasa t. Ms. Farah has seen Dr. Feldman, pain psychologist, she states she is starting to incorpo rate these techniques. Ms. Farah will benefit from multidisciplinary treatment. DALE CATNU MD Cottonseed Meat Presser, [facility] Battery Filler, Pain Medicine Professor, Anesthesiology & Perioperative Medicine NAEiDiana scott RN - 03/01/2012 1:35 PM PDT PRE-SEDATION: Date: March 01, 2012 Tracie Farah [id number] 1990 ALLERGIES: Morphine Previous reaction to Sedation/Analgesia: MEDICATIONS: Current Outpatient Prescriptions Medication DULoxetine (CYMBALTA) 30 mg Oral Capsule, Delayed Release(E.C.) HYDROcodone-acetaminophen (NORCO) 10-325 mg Oral Tablet levonorgestrel (MIRENA) 20 mcg/24 hr Intrauterine IUD LORazepam 1 mg Oral Tablet promethazine 25 mg Oral Tablet Meets NPO Guidelines. IV ACCESS: IV in Place IV Start Time 95560, 22g, DRH BASELINE VS: See Sedation Flow Sheet. Tracie Farah [id number] 1990, presents to clinic for: Procedure: Lumbar sympathetic block PREVIOUS REACTION TO SEDATION/ANALGESIA: No SEDATION/ ANALGESIA PLAN: Moderate Sedation Meets NPO Guidelines: Yes ( NPO x> 6 hours from solids and/or > 3 hours from clear liquids) . Sedation Consent obtained: Yes Procedure Consent obtained: Yes H&P obtained: Yes Emergency equipment available per policy. 1330-31: Midazolam 2 mg IV 1335-36: Midazolam 2 mg IV 1336-37: Fentanyl 50 mcg IV 1337: Procedure started. Needle placed Placement confirmed with omnipaque 180 mg/ml 1 ml followed by test dose of lido with epi3 ml followed by injection of bupivacaine 0.5% 10 ml. 1344: Procedure complete. Pt returned to [facility] 1 per man in stable condiotion. IV dc'd. Cece Arreola RN - 03/01/2012 12:49 PM PDTCMA History: PMH/PSH/SH/FH review 1. Has your pain changed from your last visit? no change 2. Do you have any new weakness or decrease in sensation? no 3. Do you have any difficulty with urination? No 4. How often do you have a bowel movement? once daily 5. Are you having difficulties with sexual function? No 6. Do your medications cause any side effects? no 7. Have you had physical therapy appointments since your last visit? no 8. Have you had psychology appointments since your last visit? yes 9. Have you had any diagnostic studies since your last appointment? no 10. Do you require any medication refills today? No 11. NPO since 02/29/121999 12. Denies possibility of pregnancy Lakeisha Grullon MD - 02/29/2012 5:45 PM PDTPROVIDER OPERATIVE NOTE Date: March 01, 2012 Location: [id number] :1990, presents to clinic for: PROCEDURE: Lumbar sympathetic block LEVEL/LATERALITY: left L3 PRE-OPERATIVE DIAGNOSIS: 355.71B CRPS (complex regional pain syndrome), lower limb 719.46 Pain in joint, lower leg POST-OPERATIVE DIAGNOSIS: 355.71B CRPS (complex regional pain syndrome), lower limb 719.46 Pain in joint, lower leg ATTENDING PHYSICIAN: Dale Cantu DISTRIBUTION TECH: Fellow Lakeisha Noe MD ANESTHESIA: sedation delivered by Diana Fry RN. Sedation is supervised by Dale Cantu MD FINDINGS: Appropriate local spread of contrast noted at all sites without vascular runoff o r diffusion to other neurologic structures. IV Fluids: none Estimated Blood Loss: none Drains, Specimens, Complications: None INDICATIONS: Tracie Farah has a history of 355.71B CRPS (complex regional pain sy ndrome), lower limb 719.46 Pain in joint, lower leg I reviewed the Registered Nurse's pre-sedation report and agree to the plan. The patient wa s deemed an appropriate candidate to undergo the planned procedure. ASA Physical Status 2 w ith CRPS of left foot. PROCEDURE IN DETAIL: Prior to the procedure, I had a PARQ discussion with Tracie Farah, and she gave wr itten consent for procedure and sedation. Ms. Farah was escorted to the [facility] Procedure Ro om, where she was positioned Prone on the examination table. TEAM PAUSE: The physician-led pause was conducted, and is documented in the Nursing note. Monitors were placed, including ECG, NIBP and SpO2. The skin was prepared with Chloroprep and sterile drapes were applied. The patient was positioned prone, and the L3 vertebral level was viewed fluoroscopically. A left lateral oblique approach was used at the L3 level. Lidocaine 1% was used to anesthe tize the skin. A 22G 6 inch Chiba needle was advanced under intermittent fluoroscopic melly nce until the tip was located on the anterolateral aspect of the vertebra. The tip was florina ntually visualized in both the AP & lateral planes, and was felt to be in appropriate positi on. Omnipaque-180 was injected. The contrast spread was initially muscular. The needle was re positioned more medially, and repeat injection was consistent with an appropriate lumbar sym pathetic spread, with predominantly vertical and medial spread. 3ml of local anesthetic lidocaine 1.5% with epinephrine 5mcg/ml was injected after negative aspiration. There was not a change in heart rate to indicate intravascular injection. She was subsequently given 10ml of 0.5% bupivacaine with intermittent aspiration. The needle w as removed with 1% lidocaine injected to its track. She was able to move his legs, and show ed no sign of neurological compromise. Ms. Farah was transported to the [facility] post-procedure recovery area where she made an uneventful recovery. Before the procedure, the temperature of the dorsum of the patient's left foot was 29 degre es C. Her right foot was 31 degrees C. After the injection of local anesthetic, her left f oot was 32.2 degrees C immediately after the procedure. Before Ms. Farah left the post-p rocedural recovery area, her left foot temperature increased 6 degrees C. Subsequent to the injection of local anesthetic, Ms. Farah did not have improvement of her pain despite th e vascular engorgement and palpable warmth of her left foot in the recovery area. No eviden ce of motor or sensory block. Images were saved, and sent to [facility]. Ms. Farah will have her next appointment in 3 weeks for follow up with Dr. Cantu. She will maintain a pain diary for this procedure. Dale Cantu was present for the entire procedure. LAKEISHA NOE MD documented in this en counter Plan of Treatment Not on filedocumented as of this encounter Procedures + +--------+ + + + | Procedure Name | Priori | Date/Time | Associated Diagnosis | Comments | | | ty | | | | + +--------+ + + + | IN INJECT NERV | Routin | 03/01/2012 | CRPS (complex | | | BLCK,PARAVERT | e | 2:20 PM | regional pain | | | SYMPATH | | PDT | syndrome), lower | | | | | | limb Pain in joint, | | | | | | lower leg | | + +--------+ + + + | IN LOCM 100-199 | Routin | 03/01/2012 | CRPS (complex | | | MG/MLICON | e | 1:53 PM | regional pain | | | | | PDT | syndrome), lower | | | | | | limb Pain in joint, | | | | | | lower leg | | + +--------+ + + + | IN INJ BUPIVACAINE | Routin | 03/01/2012 | CRPS (complex | | | HCL .50% 30ML | e | 1:53 PM | regional pain | | | | | PDT | syndrome), lower | | | | | | limb Pain in joint, | | | | | | lower leg | | + +--------+ + + + documented in this encounter Visit Diagnoses + + | Diagnosis | + + | CRPS (complex regional pain syndrome), lower limb Causalgia of lower limb | + + | Pain in joint, lower leg | + + documented in this encounter
--- OUTSIDE RECORDS SUMMARY | ~2020-03-09 | XMS | Encounter Summary ---
Demographics + + + | Address | [address] | | | [place] [address] | + + + | Home Phone [...] Team Providers + +------+ + | Care First Aid Attendant Name | Role | Phone | [...] Pain Medicine | Diagnoses | Chasity | Purchasing Director Chh1 | | | | / Pain | Abdominal | MD Kenny | [address] | | | | Management | pain, | [address] | [facility] | | | | | unspecified | [facility] | for Health | | | | | location | Rd | and Healing | | | | | Procedures | [place], [place] | Building | | | | | CONSULT TO | [address] | 1,15th Floor | | | | | PAIN | | [place], [place] | | | | | MANAGEMENT | | [address] | | | | | | | Phone: | | | | | | | [phone] | | | | | | | Fax: | | | | | | | [phone] | +--------+--------+ + + + + Encounter Details +--------+---------+ + + + | Date | Type | Department | Care Team | Description | +--------+---------+ + + + | 07/11/ | Office | [facility] | Ilene Bright, | Pain of upper | | 2017 | Visit | Pain Center at | AUDIO VISUAL DIRECTOR [address] | abdomen (Primary | | | | [place] | [address] [place], [place] | Dx); Intractable | | | | [address] | [address] | cyclical vomiting | | | | [facility] | [phone] | with nausea; | | | | and [facility] | | Irritable bowel | | | | 1,15th Floor | | syndrome with | | | | [place], [place] | | constipation; | | | | [address] | | Complex regional | | | | [phone] | | pain syndrome type 1 | [...] and determine next steps. Ilene Childs DNP, AUDIO VISUAL DIRECTOR-C Adult Pain Service /[facility] [address] [place] [address] documented in this encounter Progress Notes Ilene Bright FNP - 07/11/2017 1:35 PM PDTFormatting of this note might be different fr om the original. [facility] Return Visit Date: [...] is in the process of [facility]. She has also changed her [...] her abdominal pain an d associated symptoms. SUMMER LAW CLERK QUESTIONNAIRE BRIEF PAIN 07/11/2017 Please rate how [...] has interfered with your sleep : 5 SUMMER LAW CLERK Questionnaire Follow-up Patient 07/11/2017 Please describe the [...] Hemroidectomy Trial spinal cord stimulator leads 08/02/2012 [facility], Surgeon: Janak Riojas MD Cholecystectomy Appendectomy Other [...] History Social History Narrative Single. Goes to [employer] with a light load. Has been working at [employer], can' t work on [employer]. Has roommates. Allergies Allergen Reactions Morphine Anaphylaxis [...] by physician. Concentration is 150mg/mL. Compounded by [facility] ) LAMOTRIGINE 200 MG TABLET Take [...] GRAM SOLUTION Take as directed by [facility] Digestive [facility]- 2 gallon bowel [...] and summary of old medical records (source: [employer]), as summarized in the body of the [...] [place], am functioning as a medical assistant secretary for MARLENI Clark DNP I have reviewed and verified the above scribed note of my visit with this patient as record ed by Shantel Salinas. Ilene Childs DNP, TERESA-C [facility] [address] [place] [id number] Addendum: I paged Dr. Les Gaspar. He was out of the clinic, I spoke with the covering provider and sha dandre Tracie's request for food allergy testing. Since Tracie thinks her pain and vomiting may b e triggered by gluten, covering provided ordered appropriate workup, which I communicated to Tracie and the the lab in [place], [place]. She will followup with me and GI once these results are available. Ilene Childs DNP, AUDIO VISUAL DIRECTOR-C [facility] [address] [place] [address] documented in this e ncounter Plan of [...]
--- OUTSIDE RECORDS SUMMARY | ~2020-03-09 | XMS | Encounter Summary ---
Demographics + + + | Address | [address] | | | [place] [address] | + + + | Home Phone [...] Team Providers + +------+ + | Care Cloud Infrastructure Architect Name | Role | Phone | + +------+ + | Justo Vazquez MD | PCP | | + +------+ + Encounter Details +--------+ + + + + | Date | Type | Department | Care Team | Description | +--------+ + + + + | 08/03/ | Telephone | [facility] | Alex Sanchez, | | | 2018 | | Pain Center at | ,PhD [address] | | | | | [facility] | [address] | | | | | [address] | [place], [place] | | | | | [place] for [facility] | [address] | | | | | and [facility] | [phone] | | | | | 1,15th Floor | | | | | | [place], [place] | | | | | | [address] | | | | | | [phone] | | | +--------+ + + + [...]
--- OUTSIDE RECORDS SUMMARY | ~2020-03-09 | XMS | Encounter Summary ---
Demographics + + + | Address | [address] | | | [place] [address] | + + + | Home Phone [...] Team Providers + +------+ + | Care Mechanical Adjuster Name | Role | Phone | [...] Rd | | | | | | [place], [place] | | | | | | [address] | | | +--------+ + + + [...]
--- OUTSIDE RECORDS SUMMARY | ~2020-03-09 | XMS | Encounter Summary ---
Demographics + + + | Address | [address] | | | [place] [address] | + + + | Home Phone [...] Team Providers + +------+ + | Care Seamstress Fitter Name | Role | Phone | + +------+ + | Justo Vazquez MD | PCP | | + +------+ + Encounter Details +--------+ + + + + | Date | Type | Department | Care Team | Description | +--------+ + + + + | 04/23/ | Pharmacy | [facility] | | | | 2019 | Visit | [facility] | | | | | | [address] | | | | | | Mailcode: [place] | | | | | | [facility] | | | | | | Healing, [address] | | | | | | [place], [place] | | | | | | [address] | | | | | | [phone] | | | +--------+ + + + [...]
--- OUTSIDE RECORDS SUMMARY | ~2020-03-09 | XMS | Encounter Summary ---
Demographics + + + | Address | [address] | | | [place] [address] | + + + | Home Phone [...] Providers + +------+ + | Care Court Messenger Name | Role | Phone | + +------+ + | Justo Vazquez MD | PCP | | + +------+ + Encounter Details +--------+ + + + + | Date | Type | Department | Care Team | Description | +--------+ + + + + | 06/07/ | Telephone | [facility] | Alex Sanchez, | | | 2019 | | Pain Center at | ,PhD [address] | | | | | [facility] | [address] | | | | | [address] | [place], [place] | | | | | [place] for [facility] | [address] | | | | | and [facility] | [phone] | | | | | 1[address]th Floor | | | | | | [place], [place] | | | | | | [address] | | | | | | [phone] | | | +--------+ + + + [...]
--- OUTSIDE RECORDS SUMMARY | ~2020-03-09 | XMS | Encounter Summary ---
Demographics + + + | Address | [address] | | | [place] [address] | + + + | Home Phone [...] Team Providers + +------+ + | Care Diamond Polisher Name | Role | Phone | [...] + + | 08/07/ | Refill | [facility] | Alex Sanchez, | Refill Request | | 2018 | | Pain Center at | ,PhD [address] | | | | | [facility] | [address] | | | | | [address] | [place], [place] | | | | | [facility] | [address] | | | | | and [facility] | [phone] | | | | | Floor | | | | | | [place], [place] | | | | | | [address] | | | | | | [phone] | | | +--------+--------+ + + + [...]
--- OUTSIDE RECORDS SUMMARY | ~2020-03-09 | XMS | Encounter Summary ---
Demographics + + + | Address | [address] | | | [place] [address] | + + + | Home Phone [...] Providers + +------+ + | Care Diesel Maintenance Electrician Name | Role | Phone | + [...] | | | regional | [place] | [address] | | | | | pain | FAMILY | [address]stop | | | | | syndrome), | MEDICINE P | [id number] | | | | | lower limb | [address] | [place], [place] | | | | | Gait | [place], | [address] | | | | | disturbance | [place] [address] | Phone: | | | | | Muscle pain | Phone: | [phone] | | | | | Procedures | [phone] | Fax: | | | | | REQUEST TO | Fax: | [phone] | | | | | SURGERY | [phone] | | | | | | UNDERWRITING ASSISTANT | | | +--------+--------+ + + + + Encounter Details +--------+ + + + + | Date | Type | Department | Care Team | Description | +--------+ + + + + | 03/01/ | Procedure | Pain Center at [facility] | Dale Cantu, | Foot pain (left); | | 2011 | | [address] | [address] | Procedure | | | | Center for [facility] | [id number] | | | | | and Healing Building | [place], [place] | | | | | Floor | [address] | | | | | [place], [place] | [phone] | | | | | [address] | | | | | | [phone] | | | +--------+ + + + [...] migh t be different from the original. [facility] Patient Instructions - Post Interventional Procedure Date: 03/01/2012 Name: Tracie Farah Date of : 1990 Procedure Performed: LUMBAR SYMPATHETIC BLOCK. Procedure Provider: Dale Cantu If you have any problems you believe are associated with your procedure tonight, Please call the Hospital Medical Office Worker, and ask for the Pain Management Consu ltant. If you have problems or questions between 9:00 am and 4:00 pm, Please call the [facility] Nurse Triage Line, . If you [...] to the larry ent. LAKEISHA NOE MD [facility] documented in this encounter Progress Notes Dale Cantu MD - 03/01/2012 2:21 PM PDTI was present for the entire procedure (lumbar sympathetic block) and all bocanegra elements of this visit. I reviewed the documentation of the other STITCH BONDING MACHINE DRAWER IN providers and concur with Dr. Noe's findings. [...] Farah will benefit from multidisciplinary treatment. DALE CANTU MD Personnel Interviewer, [facility] Technical Staff Assistant, Pain Medicine Professor, Anesthesiology & Perioperative Medicine NAEiDiana scott RN - 03/01/2012 1:35 PM PDT PRE-SEDATION: Date: March 01, 2012 Tracie Farah [id number] 1990 ALLERGIES: Morphine Previous reaction to Sedation/Analgesia: MEDICATIONS: Current Outpatient Prescriptions Medication DULoxetine (CYMBALTA) 30 mg Oral Capsule, Delayed Release(E.C.) HYDROcodone-acetaminophen (NORCO) 10-325 mg Oral Tablet levonorgestrel (MIRENA) 20 mcg/24 hr Intrauterine IUD LORazepam 1 mg Oral Tablet promethazine 25 mg Oral Tablet Meets NPO Guidelines. IV ACCESS: IV in Place IV Start Time 16657, 22g, DRH BASELINE VS: See Sedation Flow Sheet. Tracie Farah [id number] 1990, presents to clinic for: Procedure: Lumbar [...] ml. 1344: Procedure complete. Pt returned to [place] 1 per man in stable condiotion. IV [...] OPERATIVE NOTE Date: March 01, 2012 Location: [facility] [id number] :1990, presents to clinic for: PROCEDURE: Lumbar sympathetic block LEVEL/LATERALITY: left L3 PRE-OPERATIVE DIAGNOSIS: 355.71B CRPS (complex regional pain syndrome), lower limb 719.46 Pain in joint, lower leg POST-OPERATIVE DIAGNOSIS: 355.71B CRPS (complex regional pain syndrome), lower limb 719.46 Pain in joint, lower leg ATTENDING PHYSICIAN: Dale Cantu HOSE TENDER: Fellow Lakeisha Noe MD ANESTHESIA: sedation delivered [...] sedation. Ms. Farah was escorted to the [facility] Procedure Ro om, where she was [...] block. Images were saved, and sent to [employer]. Ms. Faarh will have her next appointment in 3 [...] | + +--------+ + + + | MT INJECT NERV | Routin | 03/01/2012 | CRPS (complex | | | BLCK,PARAVERT | e | 2:20 PM | regional pain | | | SYMPATH | | PDT | syndrome), lower | | | | | | limb Pain in joint, | | | | | | lower leg | | + +--------+ + + + | MT LOCM 100-199 | Routin | 03/01/2012 | CRPS (complex | | | MG/MLICON | e | 1:53 PM | regional pain | | | | | PDT | syndrome), lower | | | | | | limb Pain in joint, | | | | | | lower leg | | + +--------+ + + + | MT INJ BUPIVACAINE | Routin | 03/01/2012 | [...]
--- OUTSIDE RECORDS SUMMARY | ~2020-03-09 | XMS | Encounter Summary ---
Demographics + + + | Address | [address] | | | [place] [address] | + + + | Home Phone [...] Providers + +------+ + | Care Top Lift Compresser Name | Role | Phone | + [...] + + | 02/21/ | Telephone | [facility] | Alex Sanchez, | Medication Refill | | 2018 | | Pain Center at | ,PhD [address] | Request (ketamine- | | | | [facility] | [address] | mail script to | | | | [address] | [place], [place] | patient) | | | | [facility] | [address] | | | | | and [facility] | [phone] | | | | | Floor | | | | | | [place], [place] | | | | | | [address] | | | | | | [phone] | | | +--------+ + + + [...]
--- OUTSIDE RECORDS SUMMARY | ~2020-03-09 | XMS | Encounter Summary ---
Demographics + + + | Address | [address] | | | [place] [address] | + + + | Home Phone [...] Providers + +------+ + | Care Integration Analyst Name | Role | Phone | + +------+ + | Justo Vazquez MD | PCP | | + +------+ + Encounter Details +--------+ + + + + | Date | Type | Department | Care Team | Description | +--------+ + + + + | 10/20/ | Telephone | [facility] | Ilene Bright, | | | 2017 | | Pain Center at | PARK NATURALIST [address] | | | | | [facility] | Ave [place], [place] | | | | | [address] | [address] | | | | | [place] for [facility] | [phone] | | | | | and [facility] | | | | | | 1,15th Floor | | | | | | [place], [place] | | | | | | [address] | | | | | | [phone] | | | +--------+ + + + [...]
--- OUTSIDE RECORDS SUMMARY | ~2020-03-09 | XMS | Encounter Summary ---
Demographics + + + | Address | [address] | | | [place] [address] | + + + | Home Phone [...] Team Providers + +------+ + | Care Echocardiologist Name | Role | Phone | + [...] with nausea | [address] | [address] [place], | | | | | Complex | Rd | [place] | | | | | regional | [place], [place] | [address] | | | | | pain | [address] | Phone: | | | | | syndrome | Phone: | [phone] | | | | | type 1 of | [phone] | Fax: | | | | | left lower | Fax: | [phone] | | | | | extremity | [phone] | | | | | | Procedures [...] | | | | | unspecified | [facility] | [address] | | | | | location | Rd | [facility] | | | | | Procedures | [place], [place] | Rd [place], | | | | | CONSULT TO | [address] | [place] | | | | | PAIN | | [address] | | | | | MANAGEMENT | | Phone: | | | | | | | [phone] | | | | | | | Fax: | | | | | | | [phone] | +--------+--------+ + + + + Encounter Details +--------+---------+ + + + | Date | Type | Department | Care Team | Description | +--------+---------+ + + + | 04/19/ | Office | [facility] [place] | Alex Sanchez, | Intractable cyclical | | 2018 | Visit | Pain Center at | ,PhD [address] | vomiting with | | | | [facility] | [address] | nausea (Primary Dx); | | | | [address] | [place], [place] | Complex regional | | | | [place] for [facility] | [address] | pain syndrome type 1 | | | | and Healing Building | [phone] | of left lower | | | | ,15th Floor | | extremity | | | | [place], [place] | | | | | | [address] | | | | | | [phone] | | | +--------+---------+ + + + [...] might be differe nt from the original. [facility] Return Visit Date: 04/20/2018 Chief Complaint Patient presents with Abdominal pain Back pain Pain in left leg History of Present Illness: Tracie Farah is a 27 year old female, whose last appoi ntment at the [facility] was 12/27/2017, for a [...] not help for the abdominal pain). PAINBRIEF: [facility] Brief Pain Inventory: (ten= worst possible [...] Hemroidectomy Trial spinal cord stimulator leads 08/02/2012 [facility], Surgeon: Janak Riojas MD Cholecystectomy [...] History Social History Narrative Single. Goes to [employer] college with a light load. Has been working at [employer], can' t work on crGraffleches. Has roommates. Allergies Allergen Reactions Morphine Anaphylaxis [...] by physician. Concentration is 150mg/mL. Compounded by [employer] ( [phone]) KETOROLAC IM Inject into the muscle (IM). [...] to her by Christie Madrid MD in [place], [place]. As she chowdhury s since left the practice, Ms. Farah no longer has a prescriber for this medication. At [facility], we typically do not [...] unclear etiology. She [facility], and is greatly helped by Toradol, [...] as needed Alex Sanchez MD,PhD [facility] 3 :41 PM [...]
--- OUTSIDE RECORDS SUMMARY | ~2020-03-09 | XMS | Encounter Summary ---
Demographics + + + | Address | [address] | | | [place] [address] | + + + | Home Phone [...] Team Providers + +------+ + | Care Alternative Energy Engineer Name | Role | Phone | [...] Medication Question | | 2016 | | [place] [address] [address] | | | | | | [facility] | | | | | | for Health and | | | | | | Healing, [facility] [address] | | | | | | [place], [place] | | | | | | [address] | | | | | | [phone] | | | +--------+ + + + [...]
--- OUTSIDE RECORDS SUMMARY | ~2020-03-09 | XMS | Encounter Summary ---
Demographics + + + | Address | [address] | | | [place] [address] | + + + | Home Phone [...] Providers + +------+ + | Care Dental Biller Name | Role | Phone | + +------+ + | Justo Vazquez MD | PCP | | + +------+ + Encounter Details +--------+ + + + + | Date | Type | Department | Care Team | Description | +--------+ + + + + | 12/02/ | Document-Sc | Health Information | Unknown . | | | 2017 | anned | Services [address] | | | | | | [address] | | | | | | Mailcode: [id number] | | | | | | [facility] | | | | | | [place], [place] | | | | | | [address] | | | | | | [phone] | | | +--------+ + + + [...]
--- OUTSIDE RECORDS SUMMARY | ~2020-03-09 | XMS | Encounter Summary ---
Demographics + + + | Address | [address] | | | [place] [address] | + + + | Home Phone [...] Team Providers + +------+ + | Care Chilling Hood Operator Name | Role | Phone | [...] + + | 12/05/ | Surgery | [facility] | Alex Sanchez, | BILATERAL DORSAL | | 2019 | | Center for Health | ,PhD [address] | ROOT GANGLION SPINAL | | | | and Healing Surgery | [address] | CORD STIMULATOR | | | | Center Admitting | [place], [place] | IMPLANT LUMBAR; | | | | Desk Located on the | [address] | POSTERIOR | | | | 4th floor [address] | [phone] | | | | | [address] [place], | | | | | | [place] [address] | | | +--------+---------+ + + + [...] s/p successful DRG trial lead system with Enstrat[employer] System on 09/25/2018. No changes in H&P, [...] OPERATIVE NOTE Date: December 05, 2018 Location: [facility] [place] | | | Tracie Farah [id number] :1990, presents to clinic | | | for: Dorsal root ganglion stimulator implant PROCEDURE: Dorsal | | | root ganglion stimulator implant PRE-OPERATIVE DIAGNOSIS: Complex | | | regional Pain syndrome type 1 of left lower extremity | | | POST-OPERATIVE DIAGNOSIS: Complex regional Pain syndrome type 1 of | | | left lower extremity ATTENDING PHYSICIAN: Alex Sanchez | | | SHOVELER: Arben Valerio MD ANESTHESIA: sedation by IVIS Cole | | | Carmen, supervised by entertainment lawyer Ilir Valdes. | | | FINDINGS: Appropriate [...] sedation. Ms. Farah was escorted to the [facility] | | | [place], where she [...] to the | | | [facility] insurance service representative. A test stimulation was performed and [...] recovery. Images were saved, and sent to [employer]. | | | Alex Sanchez (attending) was present for the entire procedure. | | | Arben Valerio MD I was present for the entire procedure | | | (spinal cord stimulator implantation with DRG leads at left L4 and | | | L5) and all bocanegra elements of this visit. I reviewed the | | | documentation of the other CAMERA ENGINEER providers and concur with | | | Iman's findings. I edited his note. Alex Sanchez, | | | ,PhD Gas Turbine Powerplant Mechanic Helper Anesthesiology and Pain Management | | | [facility] | | + + + [...] + | JOSE ANTONIO MIN | [address] | [place] [address] | | | OF CARE TESTS | [...]
--- OUTSIDE RECORDS SUMMARY | ~2020-03-09 | XMS | Encounter Summary ---
Demographics + + + | Address | [address] | | | [place] [address] | + + + | Home Phone [...] Team Providers + +------+ + | Care Clerk Name | Role | Phone | + +------+ + | Justo Vazquez MD | PCP | | + +------+ + Encounter Details +--------+ + + + + | Date | Type | Department | Care Team | Description | +--------+ + + + + | 01/09/ | Documentati | Orthopaedics | Ranjeet Amanda, | | | 2018 | on | [facility] at [place] | [address] | | | | | for Health and | [place], [place] | | | | | Healing [address] | [address] | | | | | [address] [place] for | [phone] | | | | | Health and Healing, | | | | | | | | | | | | floor [place], [place] | | | | | | [address] | | | | | | [phone] | | | +--------+ + + + [...]
--- OUTSIDE RECORDS SUMMARY | ~2020-03-09 | XMS | Encounter Summary ---
Demographics + + + | Address | [address] | | | [place] [address] | + + + | Home Phone [...] Team Providers + +------+ + | Care Burnisher And Bumper Name | Role | Phone | + +------+ + | Justo Vazquez MD | PCP | | + +------+ + Encounter Details +--------+ + + + + | Date | Type | Department | Care Team | Description | +--------+ + + + + | 12/07/ | Mold Presser | [facility] | Ava Carbajal | | | 2016 | | [facility] [address] | MD Melissa | | | | | [address] [facility] | | | | | | for Health and | | | | | | Healing, Building 2 | | | | | | [place], [place] | | | | | | [address] | | | | | | [phone] | | | +--------+ + + + [...]
--- OUTSIDE RECORDS SUMMARY | ~2020-03-09 | XMS | Encounter Summary ---
Demographics + + + | Address | [address] | | | [place] [address] | + + + | Home Phone [...] Team Providers + +------+ + | Care Life Scientists Name | Role | Phone | + [...] Oliveira | | 2011 | IP | [address] | | House - Approved | | | | [place], | | | | | | [place] [address] | | | +--------+ + + + [...]
--- OUTSIDE RECORDS SUMMARY | ~2020-03-09 | XMS | Encounter Summary ---
Demographics + + + | Address | [address] | | | [place] [address] | + + + | Home Phone [...] Providers + +------+ + | Care Certified Medical Aide Name | Role | Phone | [...] | Diagnoses | Beulah | Edu Pt Airworthiness Inspector | | | | Therapy | CRPS | Janak Martinez MD | [address] | | | | | (complex | [address] | | | | | regional | [address] | Mailcode: | | | | | pain | [address]stop | [facility] | | | | | syndrome), | [id number] | for Health | | | | | lower limb | [place], [place] | and Healing, | | | | | Gait | [address] | Building 1 | | | | | disturbance | Phone: | [place], [place] | | | | | Muscle pain | [phone] | [address] | | | | | Procedures | Fax: | Phone: | | | | | PHYSICAL | [phone] | [phone] | | | | | THERAPY | [...] | | | [place] | Ave [place], [place] | syndrome), lower | | | | [address] | [id number] | limb (Primary Dx) | | | | [place] for [facility] | | | | | | and Healing, | | | | | | Building 1, | | | | | | Floor [place], [place] | | | | | | [address] | | | | | | [phone] | | | +--------+---------+ + + + [...] might be different f rom the original. [id number] BRODY FARAH Date of : 1990 Start of care: 02/14/2012 Date of onset: 02/14/2012 Referring/Attending Practitioner: Janak Riojas MD . Primary/Referral Diagnosis/ICD-9: 355.71B CRPS (complex regional pain syndrome), lower limb Insurance: [facility] [employer] [facility] Plan: BCBS OUT OF STATE Product Type: PP O Service period from: 02/14/2012 to: 08/12/2012 Number visits used/authorized: 03/25 [facility] PHYSICAL THERAPY PROGRESS NOTE SUBJECTIVE: Age: [...] Fair Goals discussed and agreed upon with rBody and family. Individual cultural and social needs [...] any change in their status. Guillermo Sanon [facility] Outpatient Rehabilitation Services Mailcode: Ch3p [address] [facility], [address] [place] [address] documented in this encounter Plan of Treatment Not on filedocumented as of this encounter Procedures + +--------+ + + + | Procedure Name | Priori | Date/Time | Associated Diagnosis | Comments | | | ty | | | | + +--------+ + + + | [place] MANUAL THER | Routin | 06/05/2012 | CRPS (complex | | | TECH,1+REGIONS,EA 15 | e | 5:15 PM | regional pain | | | MIN | | PDT | syndrome), lower | | | | | | limb | | + +--------+ + + + | [place] THERAPEUTIC | Routin | 06/05/2012 | CRPS [...]
--- OUTSIDE RECORDS SUMMARY | ~2020-03-09 | XMS | Encounter Summary ---
Demographics + + + | Address | [address] | | | [place] [address] | + + + | Home Phone [...] Providers + +------+ + | Care Global Vp Creative + Content Marketing Name | Role | Phone | + [...] Rd | | | | | | [place], [place] | | | | | | [address] | | | +--------+ + + + [...]
--- OUTSIDE RECORDS SUMMARY | ~2020-03-09 | XMS | Encounter Summary ---
Demographics + + + | Address | [address] | | | [place] [address] | + + + | Home Phone [...] Team Providers + +------+ + | Care Rectifying Operator Name | Role | Phone | [...] ogy | | Ava Torres, | [address] | | | | | Constipation | MD [address] | [address] | | | | | , | [address] | [place] for | | | | | unspecified | [address] | Health and | | | | | constipation | [facility] [place] | Healing, | | | | | type | [address] | Building 2 | | | | | Procedures | | [place], [place] | | | | | CONSULT TO | | [address] | | | | | GI PROCEDURE | | Phone: | | | | | UNIT: | | [phone] | | | | | ANORECTAL | | Fax: | | | | | MANOMETRY | | [phone] | | | | | ID ANAL | | | | | | | PRESSURE | | | | | | | RECORD | | | +--------+--------+ + + + + Encounter Details +--------+ + + + + | Date | Type | Department | Care Team | Description | +--------+ + + + + | 09/14/ | Hospital | [facility] | Nurse, Gip [address] | | | 2016 | Encounter | [place] | [address] [facility] | | | | | [address] [facility] | Road [facility] [place] | | | | | for Health and | [address] | | | | | Healing, Building 2 | | | | | | [facility] [place] | | | | | | [address] | | | | | | [phone] | | | +--------+ + + + [...]
--- OUTSIDE RECORDS SUMMARY | ~2020-03-09 | XMS | Encounter Summary ---
Demographics + + + | Address | [address] | | | [place] [address] | + + + | Home Phone [...] Providers + +------+ + | Care Senior Electrical Design Engineer Name | Role | Phone | [...] | | | sympathetic | [place] | [address]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 | FAMILY | [address] | | | | | of lower | MEDICINE P | [id number] | | | | | limb | [address] | [place], [place] | | | | | | [place], | [address] | | | | | | [place] [address] | Phone: | | | | | | Phone: | [phone] | | | | | | [phone] | Fax: | | | | | | Fax: | [phone] | | | | | | [phone] | | +--------+--------+ + + + + Encounter Details +--------+---------+ + + + | Date | Type | Department | Care Team | Description | +--------+---------+ + + + | 09/04/ | Office | [facility] Comprehensive | aDle Cantu, | CRPS (complex | | 2011 | Visit | Pain Center at | [address] [facility] | regional pain | | | | [facility] | [facility] [id number] | syndrome), lower | | | | [address] | [place], [place] | limb; Gait | | | | [place] for [facility] | [address] | disturbance; Sleep | | | | and Healing Building | [phone] | disturbance, | | | | 1,15th Floor | | unspecified; | | | | [place], [place] | | Adjustment reaction | | | | [address] | | | | | | [phone] | | | +--------+---------+ + + + [...] Lydia Torres. Adapted from Clin J Pain. 2006-Feb;23(3):237-43.). This drug is an NMD A antagonist [...] CRPS patients (Loretta Rousseau et al. Katrina Pharmacy Technician Per Diem Med. 2010;152:152-158) . Bisphosphonate trial. Typically, I [...] Abraham MD - 09/04/2012 7:45 AM PDT [facility] Pain Center Return Visit with Dr. [...] and a pain drawing which I reviewed. [facility] Brief Pain Inventory: (ten= worst [...] Hemroidectomy Trial spinal cord stimulator leads 08/02/2012 [facility], Surgeon: Dale Cantu MD Family [...] The Review of Systems obtained by the [facility] was reviewed. Additional Review of Systems [...] of Pain: 13(1):17-21, 2008). DALE CANTU MD Rouge Miller, [facility] Linux System Administrator, Pain Medicine Professor, Anesthesiology & Perioperative Medicine [...]
--- OUTSIDE RECORDS SUMMARY | ~2020-03-09 | XMS | Encounter Summary ---
Demographics + + + | Address | [address] | | | [place] [address] | + + + | Home Phone [...] Providers + +------+ + | Care Document Analyst Name | Role | Phone | [...] + + | 12/26/ | Refill | [facility] | Alex Sanchez, | Refill Request | | 2019 | | Pain Center at | ,PhD [address] [facility] | | | | | [facility] | [address] | | | | | [address] | [place], [place] | | | | | [facility] | [address] | | | | | and [facility] | [phone] | | | | | Floor | | | | | | [place], [place] | | | | | | [address] | | | | | | [phone] | | | +--------+--------+ + + + [...]
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
--- OUTSIDE RECORDS SUMMARY | ~2020-03-09 | XMS | Encounter Summary ---
Demographics + + + | Address | [address] | | | [place] [address] | + + + | Home Phone [...] Team Providers + +------+ + | Care Wool Tamper Name | Role | Phone | [...] | 2015 | Encounter | Center at [facility] [address] | MD Melissa | | | | | [address] [facility] | | | | | | for Health and | | | | | | Healing, Building [address] | | | | | | [place], [place] | | | | | | [address] | | | | | | [phone] | | | +--------+ + + + [...]
--- OUTSIDE RECORDS SUMMARY | ~2020-03-09 | XMS | Encounter Summary ---
Demographics + + + | Address | [address] | | | [place] [address] | + + + | Home Phone [...] Providers + +------+ + | Care Supervisor Carbon Electrodes Name | Role | Phone | + [...] Rd | | | | | | [place], [place] | | | | | | [address] | | | +--------+ + + + [...]
--- OUTSIDE RECORDS SUMMARY | ~2020-03-09 | XMS | Encounter Summary ---
Demographics + + + | Address | [address] | | | [place] [address] | + + + | Home Phone [...] Team Providers + +------+ + | Care Faculty I On Call Medical Assistant Name | Role | Phone | [...] | | | regional | [place] | [address] | | | | | pain | FAMILY | [address] | | | | | syndrome), | MEDICINE P | [address] | | | | | lower limb | [address] | [place], [place] | | | | | Pain in | [place], | [address] | | | | | joint, lower | [place] [address] | Phone: | | | | | leg | Phone: | [phone] | | | | | Procedures | [phone] | Fax: | | | | | REQUEST TO | Fax: | [phone] | | | | | SURGERY | [phone] | | | | | | NODE JS DEVELOPER | | | +--------+--------+ + + + [...] | | | sympathetic | [place] | [address]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 | FAMILY | [address] | | | | | of lower | MEDICINE P | [id number] | | | | | limb | [address] | [place], [place] | | | | | | [place], | [address] | | | | | | [place] [address] | Phone: | | | | | | Phone: | [phone] | | | | | | [phone] | Fax: | | | | | | Fax: | [phone] | | | | | | [phone] | | +--------+--------+ + + + + Encounter Details +--------+---------+ + + + | Date | Type | Department | Care Team | Description | +--------+---------+ + + + | 06/06/ | Office | [facility] Comprehensive | Dale Cantu, | CRPS (complex | | 2011 | Visit | Pain Center at | MD [address] [facility] [address] [facility] | regional pain | | | | [facility] | [facility] [id number] | syndrome), lower | | | | [address] | [place], [place] | limb; Pain in joint, | | | | [facility] | [address] | lower leg | | | | and [facility] | [phone] | | | | | | | | | | | [place], [place] | | | | | | [address] | | | | | | [phone] | | | +--------+---------+ + + + [...] Dale Cantu MD - 06/06/2012 11:49 [facility] Pre-Procedure Instructions: The procedure you discussed with your doctor is called: SCS TRIAL LUMBAR [facility]. Please make sure this is scheduled with the Flavor Tank Tender. Please bring a rear load truck driver with you. We may give you medications that make you drowsy or otherw ise unsafe to drive. If you do not have a rear load truck driver, we will not be able to do your procedure. DO NOT EAT ANYTHING AFTER MIDNIGHT If your appointment is after 1 PM , you may have a very light, low fat breakfast, such as h fpc a piece of dry toast or a [...] PLEASE CONTACT THE COMPREHENSIVE PAIN CENTER AT [phone] ([phone]) FOR QUESTIONS OR IF YOU NEED TO CANCEL YOUR APPOINTMENT. [facility] Comprehensive Pain Center documented in this encounter Progress Notes aDle Cantu MD - 06/06/2012 11:26 AM PDTI [...] not signed. Given information. DALE CANTU MD Customer Relations Coordinator, [facility] Medical Reimbursement Manager, Pain Medicine Professor, Anesthesiology & Perioperative Medicine ollHomer manriquez MD - 06/06/2012 11:[address] [facility] Comprehensive Pain Center Return Visit with Dr. Dale Cantu 06/06/2012 Tracie Farah; ; : 1990 History of Present Illness: Ms. Farah was last seen by Dr. Cantu on 03/17/12 for She has a diagnosis of CRPS of the lef foot. At that time, the plan was: 1. Continue working with Dr. Goldie Feldman in pain psychology and Guillermo Saonn with physical therapy 2. The book Managing [...] a pain drawing which I reviewed. [facility] Brief Pain Inventory: (ten= worst [...] The Review of Systems obtained by the LUNG PULLER was reviewed. Additional Review of Systems: Bones, [...] with Dr. Dale Cantu at the [facility] today for left foot CRPS which [...] therapy Homer Elaine MD Pain Medicine Fellow [facility] [place] Evelia Parsons - 11:07 AM PDTCMA History: [...]
--- OUTSIDE RECORDS SUMMARY | ~2020-03-09 | XMS | Encounter Summary ---
Demographics + + + | Address | [address] | | | [place] [address] | + + + | Home Phone [...] Providers + +------+ + | Care Nurse Anesthetist Name | Role | Phone | + [...] + + | 10/06/ | Telephone | [facility] Comprehensive | Yosef Kenney MD | Dermatitis | | 2018 | | Pain Center at | [address] | | | | | [facility] | [facility] | | | | | [address] | [place] [address] | | | | | [facility] | [phone] | | | | | and [facility] | | | | | | | | | | | | [place], [place] | | | | | | [address] | | | | | | [phone] | | | +--------+ + + + [...]
--- OUTSIDE RECORDS SUMMARY | ~2020-03-09 | XMS | Encounter Summary ---
Demographics + + + | Address | [address] | | | [place] [address] | + + + | Home Phone [...] Providers + +------+ + | Care Clinical Massage Therapist Name | Role | Phone | [...] Visit | Medicine Clinic at | R, CORRUGATOR SUPERVISOR [address] [facility] | (Primary Dx); | | | | [facility] | [address] | Complex regional | | | | [address] | [facility] [place] | pain syndrome type 1 | | | | [place] [facility] | [address] | of left lower | | | | and Healing Building | [phone] | extremity; Cyclic | | | | [address] [place], [place] | | vomiting syndrome, | | | | [address] | | intractability of | | | | [phone] | | vomiting not | | | | | | specified, presence | | | [...] Port/P | Right; Chest portacath | 03/18/17 0320 by | | | ortaca | | [...] sit, stand or walk. Surgery check-in location: [facility] Day Stay - [place] [facility] and [facility], 4th floor Surgery Check in Time: [...] it is after office hours, call the [facility] deflector operator at [phone] and ask them to page him or h er. documented in this encounter Progress Notes Catie Smart NP - 11/27/2018 2:05 PM PST PREOPERATIVE CONSULT NOTE Author: Catie Smart NP Referring Physician: Alex Sanchez MD Primary Care Provider: Justo Vazquez MD Reason for Consult: Preoperative evaluation and risk assessment Proposed Procedure/Date: implant SCS; 12/05/2018 Proposed Procedure Location: [facility] HISTORY OF PRESENT ILLNESS: Tracie Farah [...] renal failure no electrolyte abnormalities no dialysis Urology/Steam Plant Records Clerk: Interstitial cystitis LMP: irreg bleeding, ~11/14/2018, IUD [...] oral recon soln Take as directed by [facility] Replicon JumpPost [facility]- 2 gallon bowel prep polyethylene glycol 17 [...] Trial spinal cord stimulator leads 08/02/2012 . [facility], Surgeon: Janak Riojas MD Cholecystectomy [...] patient is a lso currently scheduled at [facility] [place] and is meeting inclusion criteria [...] to this patient's care. Catie Smart NP [facility] PBB PREOPERATIVE MEDICINE CLINIC AT [facility] 4TH FLOOR [address] [facility] [address] I advised the patient regarding [...]
--- OUTSIDE RECORDS SUMMARY | ~2020-03-09 | XMS | Encounter Summary ---
Demographics + + + | Address | [address] | | | [place] [address] | + + + | Home Phone [...] Team Providers + +------+ + | Care Sheet Rock Taper Name | Role | Phone | + [...] | | | | | extremity | [address] | [address] | | | | | Procedures | Phone: | Phone: | | | | | REQUEST TO | [phone] | [phone] | | | | | SURGERY | Fax: | Fax: | | | | | LANDFILL GAS TECHNICIAN | [phone] | [phone] | +--------+---------+ + + + + Encounter Details +--------+---------+ + + + | Date | Type | Department | Care Team | Description | +--------+---------+ + + + | 12/22/ | Office | [facility] Comprehensive | Ilene Bright, | Complex regional | | 2019 | Visit | Pain Center at | COIL INSPECTOR [address] | pain syndrome type 1 | | | | [facility] | Ave [facility] [place] | of left lower | | | | [address] | [address] | extremity; S/P | | | | [facility] | [phone] | insertion of spinal | | | | and Healing Building | | cord stimulator | | | | 1,15th Floor | | | | | | [place], [place] | | | | | | [address] | | | | | | [phone] | | | +--------+---------+ + + + [...] fo r your reference. - The [employer] financial foundations representative met with you and made adjustments to your stimulator. I spoke w ith the financial foundations representative and she is happy with your [...] call this prescription into the [facility] in [place]. It was great to see you again, documented in this encounter Progress Notes Ilene Bright, COIL INSPECTOR - 12/22/2018 11:00 AM PSTFormatting of this note might be different fr om the original. [facility] Pain Center Return Visit Date: 12/22/2018 Chief Complaint Patient presents with Low back pain Pain in left leg History of Present Illness: Tracie Farah is a 28 year old female, whose last appoi ntment at the [facility] was 12/07/2018 following her [...] order to tolerate her incision site pain. 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 Goes to [employer] with a light load. Has been working at [employer], can' t work on [employer]. Has roommates. Allergies Allergen Reactions Morphine Anaphylaxis [...] GRAM-5.86 GRAM SOLUTION Take as directed by [facility] Digestive Health- 2 gallon bowel prep [...] with nausea Abdominal pain Abdominal scar neuroma [facility] CLINICAL PROTOCOL PATIENT (CLNPRO) - Implanted [...] and summary of old medical records (source: [facility], [facility] Everywhere), as summarized [...] taking for her surgical incision. The [facility] financial foundations representative visited the patient in order to [...] ed by Collin Salomon. Ilene Childs DNP, COIL INSPECTOR-C Adult Pain Service /[facility] [address] [place] [address] mCharline robertson MA - 12/22/2018 11:00 AM PSTCMA History: [...]
--- OUTSIDE RECORDS SUMMARY | ~2020-03-09 | XMS | Encounter Summary ---
Demographics + + + | Address | [address] | | | [place] [address] | + + + | Home Phone [...] Team Providers + +------+ + | Care Athletic Turf Worker Name | Role | Phone | [...] | pain, | [address] | [address] | | | | | unspecified | [address] | | | | | abdominal | Rd | [facility] [place] | | | | | location | [facility] [place] | [address] | | | | | Pain of | [address] | Phone: | | | | | upper | | [phone] | | | | | abdomen | | Fax: | | | | | Complex | | [phone] | | | | | regional | [...] | | | | | | | TIMBER SIZER | | | +--------+---------+ + + + + Reason for Visit + + + | Reason | Comments | + + + | Procedure | | + + + Encounter Details +--------+ + + + + | Date | Type | Department | Care Team | Description | +--------+ + + + + | 08/30/ | Telephone | [facility] | Ilene Bright, | Procedure | | 2017 | | Pain Center at | SERVICE STATION MANAGER [address] | | | | | [facility] | Ave [place], [place] | | | | | [address] | [address] | | | | | [facility] | [phone] | | | | | and [facility] Building | | | | | | 1,15th Floor | | | | | | [place], [place] | | | | | | [address] | | | | | | [phone] | | | +--------+ + + + [...]
--- OUTSIDE RECORDS SUMMARY | ~2020-03-09 | XMS | Encounter Summary ---
Demographics + + + | Address | [address] | | | [place] [address] | + + + | Home Phone [...] + + + | Author | [facility] | | | and [place] | + + + | Organization | [facility] | | | and [...] [place] | | | | | [address] | | + + + + + | Bryant Farah | ECON | Unknown | | + + + + + Care Team Providers + +------+ + | Care Biomass Plant Technician Name | Role | Phone | + +------+ + PCP | Unavailable | + +------+ + Encounter Details +--------+ + + + + | Date | Type | Department | Care Team | Description | +--------+ + + + + | 03/16/ | Hospital | [facility] | Conversion | Back pain | | 2013 | Encounter | CONVERSION [address] | Transaction, | | | | | [address] | Provider Unknown | | | | | [place], [place] | [phone] | | | | | [address] | | | | | | [phone] | | | +--------+ + + + [...]
--- OUTSIDE RECORDS SUMMARY | ~2020-03-09 | XMS | Encounter Summary ---
Demographics + + + | Address | [address] | | | [place] [address] | + + + | Home Phone [...] Team Providers + +------+ + | Care Brush Head Maker Name | Role | Phone | [...] | Diagnoses | Beulah | Edu Pt Fence Rider | | | | Therapy | CRPS | Janak Maritnez MD | [address] | | | | | (complex | [address] | | | | | regional | [address] | Mailcode: | | | | | pain | Mailstop | [facility] | | | | | syndrome), | [phone] | for Health | | | | | lower limb | [place], [place] | and Healing, | | | | | Gait | [address] | Building 1 | | | | | disturbance | Phone: | [place], [place] | | | | | Muscle pain | [phone] | [address] | | | | | Procedures | Fax: | Phone: | | | | | PHYSICAL | [phone] | [phone] | | | | | THERAPY | [...] | | | [address] | Ave [place], [place] | syndrome), lower | | | | [address] | [phone] | limb (Primary Dx) | | | | [place] for [facility] | | | | | | and Healing, | Specialist, Edu | | | | | Building 1, | Exercise [address] | | | | | Floor [place], [place] | [address] [place], | | | | | [address] | [place] [address] | | | | | [phone] | | | +--------+---------+ + + + [...] might be different f rom the original. [id number] BRODY FARAH Date of : 1990 Start of care: 02/14/2012 Date of onset: 02/14/2012 Referring/Attending Practitioner: Janak Riojas MD . Primary/Referral Diagnosis/ICD-9: 355.71B CRPS (complex regional pain syndrome), lower limb Insurance: [facility]or: [facility] Plan: BCBS OUT OF STATE Product Type: PP O Service period from: 02/14/2012 to: 08/12/2012 Number visits used/authorized: 02/23 [facility] PHYSICAL THERAPY [...] in their status. Guillermo Sanon MSPT [facility] Outpatient Rehabilitation Services Mailcode: Ch3[facility] [address] [facility], [address] [place] [address] documented in this encounter Plan of Treatment Not on filedocumented as of this encounter Procedures + +--------+ + + + | Procedure Name | Priori | Date/Time | Associated Diagnosis | Comments | | | ty | | | | + +--------+ + + + | NE THERAPEUTIC | Routin | 05/24/2012 | CRPS (complex | | | EXERCISES | e | 6:23 PM | regional pain | | | | | PDT | syndrome), lower | | | | | | limb | | + +--------+ + + + | NE THERAPEUTIC | Routin | 05/24/2012 | CRPS [...]
--- OUTSIDE RECORDS SUMMARY | ~2020-03-09 | XMS | Encounter Summary ---
Demographics + + + | Address | [address] | | | [place] [address] | + + + | Home Phone [...] Team Providers + +------+ + | Care Saddle And Harness Maker Name | Role | Phone | [...] | Diagnoses | Beulah | Edu Pt Hearing Aid Technician | | | | Therapy | CRPS | Janak Martinez MD | [address] | | | | | (complex | [address] | | | | | regional | [address] | Mailcode: | | | | | pain | Mailstop | [facility] | | | | | syndrome), | [phone] | for Health | | | | | lower limb | [place], [place] | and Healing, | | | | | Gait | [address] | Building 1 | | | | | disturbance | Phone: | [place], [place] | | | | | Muscle pain | [phone] | [address] | | | | | Procedures | Fax: | Phone: | | | | | PHYSICAL | [phone] | [phone] | | | | | THERAPY | [...] | | | [address] | Ave [place], [place] | syndrome), lower | | | | [address] | [phone] | limb (Primary Dx) | | | | [place] for [facility] | | | | | | and Healing, | | | | | | Building 1, | | | | | | Floor [place], [place] | | | | | | [address] | | | | | | [phone] | | | +--------+---------+ + + + [...] might be different f rom the original. [id number] BRODY FARAH Date of : 1990 Start of care: 02/14/2012 Date of onset: 02/14/2012 Referring/Attending Practitioner: Janak Riojas MD . Primary/Referral Diagnosis/ICD-9: 355.71B CRPS (complex regional pain syndrome), lower limb Insurance: Payor: [facility] [employer] [facility] Plan: BCBS OUT OF STATE Product Type: PP O Service period from: 02/14/2012 to: 08/12/2012 Number visits used/authorized: 11/[address] [facility] PHYSICAL THERAPY INITIAL EVALUATION SUBJECTIVE: Age: 21 [...] no pain relief. Admitted to the inpatient [facility] program for 1 month in the summer [...] Diagnostic evaluation: Records from CRPS program at [facility]. Suggest three phase bone sca n. [...] employed by the psychologists here at the [facility]. 2.2 Physical therapy can reduce pain and improve functional status. Suggest Guillermo Sanon. 3. Medication suggestions: 3.1 Continue titrating up duloxetine. 3.2 As for any patient being managed with chronic opioids, we do recommend that the patient have a signed [facility] Material Risk Notice, agree to whatever [...] and hemr oidectomy. Social History: lives in [place], 22 years old, not working [...] or concerns about therapy: she lives in [place]. She is r equesting family [...] provided with a token and bocanegra for [facility] site. Treatment began: 1345hrs Treatment ended: 1430hrs Manual therapy: 0min Therapeutic exercise: 15 min ASSESSMENT: pt presents with 10-year history of ankle pain post trauma and multiple surgeri es. She thinks she developed CRPS in 2004. She was diagnosed with CRPS and spent a month in the program at [facility] working through aggressive desensitization and activation which prov ided no lasting benefit. She lives in [place], is going to school, and [...] She can work with her PT in [place]. CLINICAL PRIORITIES: 1-follow up with [...] in their status. Guillermo Sanon MSPT [facility] Outpatient Rehabilitation Services Mailcode: Ch3p 3303 [facility], [address]st [facility] [address] documented in this encounter Plan of Treatment Not on filedocumented as of this encounter Procedures + +--------+ + + + | Procedure Name | Priori | Date/Time | Associated Diagnosis | Comments | | | ty | | | | + +--------+ + + + | CA THERAPEUTIC | Routin | 02/16/2012 | CRPS (complex | | | EXERCISES | e | 3:34 PM | regional pain | | | | | PDT | syndrome), lower | | | | | | limb | | + +--------+ + + + | CA PHYS THERAPY | Routin | 02/16/2012 | [...]
--- OUTSIDE RECORDS SUMMARY | ~2020-03-09 | XMS | Encounter Summary ---
Demographics + + + | Address | [address] | | | [place] [address] | + + + | Home Phone [...] Team Providers + +------+ + | Care Estimator Printing Name | Role | Phone | + [...] Mook | sig) | | | | Formerly Named [facility] | [address] | | | | | [address] | [place], [place] | | | | | [facility] | [address] | | | | | and Martina [facility] | [phone] | | | | | Floor | | | | | | [place], [place] | | | | | | [address] | | | | | | [phone] | | | +--------+ + + + [...]
--- OUTSIDE RECORDS SUMMARY | ~2020-03-09 | XMS | Encounter Summary ---
Demographics + + + | Address | [address] | | | [place] [address] | + + + | Home Phone [...] Providers + +------+ + | Care Assistant Director Of Residence Life Name | Role | Phone | + [...] Oliveira | | 2011 | IP | [address] | | House - Approved | | | | Giuliana Maldonado [place], | | | | | | [place] [address] | | | +--------+ + + + [...]
--- OUTSIDE RECORDS SUMMARY | ~2020-03-09 | XMS | Encounter Summary ---
Demographics + + + | Address | [address] | | | [place] [address] | + + + | Home Phone [...] Providers + +------+ + | Care Electric Meter Installer Name | Role | Phone | [...] 2016 | | Center at [facility] [address] | | severe stomach Pain) | | | | [facility] | | | | | | for Health and | | | | | | Healing, Building 2 | | | | | | [place], [place] | | | | | | [address] | | | | | | [phone] | | | +--------+ + + + [...]
--- OUTSIDE RECORDS SUMMARY | ~2020-03-09 | XMS | Encounter Summary ---
Demographics + + + | Address | [address] | | | [place] [address] | + + + | Home Phone [...] Providers + +------+ + | Care Senior Engineering Team Leader Name | Role | Phone | + +------+ + | Justo Vazquez MD | PCP | | + +------+ + Encounter Details +--------+ + + + + | Date | Type | Department | Care Team | Description | +--------+ + + + + | 09/25/ | Pharmacy | [facility] | | | | 2018 | Visit | & [facility] Pharmacy | | | | | | [address] | | | | | | Mailcode: [place] | | | | | | [facility] and | | | | | | Healing, Building 1 | | | | | | [place], [place] | | | | | | [address] | | | | | | [phone] | | | +--------+ + + + [...]
--- OUTSIDE RECORDS SUMMARY | ~2020-03-09 | XMS | Encounter Summary ---
Demographics + + + | Address | [address] | | | [place] [address] | + + + | Home Phone [...] Team Providers + +------+ + | Care Sergeant Of Officers Name | Role | Phone | + [...] | | syndrome | [place] | [facility] | | | | | type 1 of | Rd | Rd [place], | | | | | left lower | [place], [place] | [place] | | | | | extremity | [address] | [address] | | | | | Procedures | Phone: | Phone: | | | | | REQUEST TO | [phone] | [phone] | | | | | SURGERY | Fax: | Fax: | | | | | PUBLIC EMPLOYMENT MEDIATOR | [phone] | [phone] | +--------+---------+ + + + + Encounter Details +--------+---------+ + + + | Date | Type | Department | Care Team | Description | +--------+---------+ + + + | 12/07/ | Office | [facility] Comprehensive | Eulogio, | Complex regional | | 2019 | Visit | Pain Center at | MD Irene [address] | pain syndrome type 1 | | | | [facility] | [address] [place], | of left lower | | | | [address] | [place] [address] | extremity (Primary | | | | [facility] | [phone] | Dx); S/P insertion | | | | and Healing Building | | of spinal cord | | | | 1,15th Floor | | stimulator | | | | [place], [place] | | | | | | [address] | | | | | | [phone] | | | +--------+---------+ + + + [...] Lujan MD - 12/07/2018 9:10 AM PST [facility] Pain Center Return Visit Date: 12/07/2018 Chief Complaint Patient presents with Back pain Pain in left leg History of Present Illness: Tracie Farah is a 28 year old female, whose last appoi ntment at the [facility] was December 05, 2018, [...] her 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 DIRECTOR APPOINTMENT Brief Pain Inventory: (ten= worst possible pain [...] spinal cord stimulator leads 08/02/2012 [facility], Surgeon: Janak Riojas [...] History Social History Narrative Single. Goes to [employer] with a light load. Has been working at [employer], can' t work on [employer]. Has roommates. Allergies Allergen Reactions Morphine Anaphylaxis [...] SOLUTION Take as directed by [facility] Digestive Health- 2 gallon bowel [...] and summary of old medical records (source: [employer]), as summarized in the body of the [...] for the encounter. Irene Krishnan MD [facility] COMPREHENSIVE PAIN CENTER AT [place] [id number] [facility], 4th Floor Mail Code: [address] [phone] documented in thi s encounter Plan of Treatment Not on filedocumented as of this encounter Visit Diagnoses + + | Diagnosis | + + | Complex regional pain syndrome type 1 of left lower extremity - Primary | + + | S/P insertion of spinal cord stimulator | + + documented in this encounter
--- OUTSIDE RECORDS SUMMARY | ~2020-03-09 | XMS | Encounter Summary ---
Demographics + + + | Address | [address] | | | [place] [address] | + + + | Home Phone [...] Team Providers + +------+ + | Care Physiologist Name | Role | Phone | + [...] | | | sympathetic | [place] | [address]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 | FAMILY | Mailstop | | | | | of lower | MEDICINE P | [address] | | | | | limb | [address] | [place], [place] | | | | | | [place], | [address] | | | | | | [place] [address] | Phone: | | | | | | Phone: | [phone] | | | | | | [phone] | Fax: | | | | | | Fax: | [phone] | | | | | | [phone] | | +--------+--------+ + + + + Encounter Details +--------+---------+ + + + | Date | Type | Department | Care Team | Description | +--------+---------+ + + + | 03/17/ | Office | [facility] Comprehensive | Dale Cantu, | CRPS (complex | | 2011 | Visit | Pain Center at | [address] | regional pain | | | | [address] [place] | [address] [address] | syndrome), lower | | | | [address] | [place], [place] | limb; Adjustment | | | | [employer] for [facility] | [address] | reaction; Muscle | | | | and Healing Building | [phone] | pain; Gait | | | | 1,15th Floor | | disturbance | | | | [place], [place] | | | | | | [address] | | | | | | [phone] | | | +--------+---------+ + + + [...] Pain: After Your Visit", log into your Merchant View nt at [email or web address]. You can enter [id number] in the TicketStumbler Library" search box. Not on Coullt? Review the MyChart section of your After Visit Summary for directions on liz rea to sign up. Quickshift. Care instructions adapted under license by [facility]. This care instruction is for use with your licensed healthcar e professional. If you have questions about a medical condition or this instruction, always ask your healthcare professional. Quickshift disclaims any warranty or liabili ty for your use of this information. Content Version: 9.2.610407; Last Revised: April 29, 2011 Nortriptyline for [...] Pain: After Your Visit", log into your Merchant View nt at [email or web address]. You can enter [id number] in the Smeam.com" search box. Not on [employer]ade Technologies? Review the Neodyne Bioscienceshart section of your After Visit Summary for directions on ho w to sign up. [phone] Quickshift. Care instructions adapted under license by [facility] [place]. This care instruction is for use with your licensed healthcar e professional. If you have questions about a medical condition or this instruction, always ask your healthcare professional. Quickshift disclaims any warranty or liabili ty for your use of this information. Content Version: 9.2.770493; Last Revised: April 29, 2011 documented in [...] documented in our notes. DALE CANTU MD Extrusion Die Template Maker, Comprehensive Pain Center Flooring Professional, Pain Medicine Professor, Anesthesiology & Perioperative Medicine NAMollMarquis manriquez MD - 03/17/2012 3:42 PM PDT [facility] Return Visit with Dr. [...] her pain. She continues to take 6-8 [place] per day and 600 mg of ibuprofen [...] and a pain drawing which I reviewed. [facility] Brief Pain Inventory: (ten= worst possible [...] by the [facility] was reviewed. Additional Review of Systems: Bones, [...] had her first consultation with Dr. Goldie Felmdan, a visit which she spoke highly of [...] Charline Choe MA - 03/17/2012 3:42 PM PDTCMA History: PMH/PSH/SH/FH review 1. Has [...] you require any medication refills today? no MAGNETIC LOCATER ROS: 1. Bones, Joints, and Muscles: cramps [...]
--- OUTSIDE RECORDS SUMMARY | ~2020-03-09 | XMS | Encounter Summary ---
Demographics + + + | Address | [address] | | | [place] [address] | + + + | Home Phone [...] Providers + +------+ + | Care Automotive Artist Name | Role | Phone | [...] + + | 06/07/ | Telephone | KEVIN Odom | Ilene Bright, | Care Coordination | | 2016 | | Pain Center at | TEXTILE CHEMIST [address] | | | | | [facility] | Ave [place], [place] | | | | | [address] | [address] | | | | | [facility] | [phone] | | | | | and [facility] | | | | | | 1,15th Floor | | | | | | [facility] [place] | | | | | | [address] | | | | | | [phone] | | | +--------+ + + + [...]
--- OUTSIDE RECORDS SUMMARY | ~2020-03-09 | XMS | Encounter Summary ---
Demographics + + + | Address | [address] | | | [place] [address] | + + + | Home Phone [...] Providers + +------+ + | Care Machine Molder Name | Role | Phone | [...] Medical Records | | 2017 | | [place] at [facility] [address] | | Review | | | | [facility] | | | | | | for Health and | | | | | | [facility] [address] | | | | | | [place], [place] | | | | | | [address] | | | | | | [phone] | | | +--------+ + + + [...]
--- OUTSIDE RECORDS SUMMARY | ~2020-03-09 | XMS | Encounter Summary ---
Demographics + + + | Address | [address] | | | [place] [address] | + + + | Home Phone [...] Providers + +------+ + | Care It Project Lead Name | Role | Phone | [...] 2016 | | Pain Center at | [place] [address] | | | | | [facility] | Ave [place], [place] | | | | | [address] | [address] | | | | | [facility] | [phone] | | | | | and [facility] | | | | | | 1,15th Floor | | | | | | [facility] [place] | | | | | | [address] | | | | | | [phone] | | | +--------+ + + + [...]
--- OUTSIDE RECORDS SUMMARY | ~2020-03-09 | XMS | Encounter Summary ---
Demographics + + + | Address | [address] | | | [place] [address] | + + + | Home Phone [...] Team Providers + +------+ + | Care Signal Intelligence/Electronic Warfare Name | Role | Phone | + +------+ + | Justo Vazquez MD | PCP | | + +------+ + Encounter Details +--------+ + + + + | Date | Type | Department | Care Team | Description | +--------+ + + + + | 01/06/ | Document-Me | [facility] | Alex Sanchez, | | | 2018 | annemily | Pain Center at | ,PhD [address] | | | | | [facility] | [address] | | | | | [address] | [place], [place] | | | | | [place] for [facility] | [address] | | | | | and [facility] | [phone] | | | | | 1,15th Floor | | | | | | [place], [place] | | | | | | [address] | | | | | | [phone] | | | +--------+ + + + [...]
--- OUTSIDE RECORDS SUMMARY | ~2020-03-09 | XMS | Encounter Summary ---
Demographics + + + | Address | [address] | | | [place] [address] | + + + | Home Phone [...] Team Providers + +------+ + | Care Storeroom Keeper Name | Role | Phone | [...] [address] | | | | | [facility] | [place], [place] | | | | | [place], [place] | [address] | | | | | [address] | | | | | | [phone] | | | +--------+ + + + [...]
--- OUTSIDE RECORDS SUMMARY | ~2020-03-09 | XMS | Encounter Summary ---
Demographics + + + | Address | [address] | | | [place] [address] | + + + | Home Phone [...] + + | 03/11/ | Telephone | [facility] [place]ene | Zeeshan Mahoney MD | | | 2019 | | Pain Center at | [address] | | | | | [facility] | [address] [place], | | | | | [address] | [place] [address] | | | | | [facility] | [phone] | | | | | and [facility] | | | | | | 1,15th Floor | | | | | | [place], [place] | | | | | | [address] | | | | | | [phone] | | | +--------+ + + + [...]
--- OUTSIDE RECORDS SUMMARY | ~2020-03-09 | XMS | Encounter Summary ---
Demographics + + + | Address | [address] | | | [place] [address] | + + + | Home Phone [...] Providers + +------+ + | Care Document Processing Specialist Name | Role | Phone [...] | CRPS | Janak Martinez MD | [facility] [address] | | | | | (complex | [address] | [address] | | | | | regional | [address] | [address] | | | | | pain | Mailstop | [address], | | | | | syndrome), | [id number] | Basement | | | | | lower limb | [place], [place] | [place], [place] | | | | | Procedures | [address] | [address] | | | | | [place] BONE &/[place] | Phone: | Phone: | | | | | JOINT | [phone] | [phone] | | | | | IMAGING 3 | Fax: | Fax: | | | | | PHASE | [phone] | [phone] | +--------+--------+ + + + + Encounter Details +--------+ + + + + | Date | Type | Department | Care Team | Description | +--------+ + + + + | 02/13/ | Hospital | Nuclear Medicine | | | | 2011 | Encounter | at [facility] [address] | | | | | | [address] | | | | | | [place], | | | | | | [place], | | | | | | [place] [address] | | | | | | [phone] | | | +--------+ + + + [...]
--- OUTSIDE RECORDS SUMMARY | ~2020-03-09 | XMS | Encounter Summary ---
Demographics + + + | Address | [address] | | | [place] [address] | + + + | Home Phone [...] Providers + +------+ + | Care Ceramic Plater Name | Role | Phone | + [...] + + | 10/30/ | Refill | [facility] Comprehensive | Alex Sanchez, | Refill Request | | 2018 | | Pain Center at | ,PhD [address] [facility] | | | | | [facility] | [address] | | | | | [address] | [place], [place] | | | | | [facility] | [address] | | | | | and Martina [facility] | [phone] | | | | | Floor | | | | | | [place], [place] | | | | | | [address] | | | | | | [phone] | | | +--------+--------+ + + + [...]
--- OUTSIDE RECORDS SUMMARY | ~2020-03-09 | XMS | Encounter Summary ---
Demographics + + + | Address | [address] | | | [place] [address] | + + + | Home Phone [...] Team Providers + +------+ + | Care Print Shop Helper Name | Role | Phone | + +------+ + | Justo Vazquez MD | PCP | | + +------+ + Encounter Details +--------+ + + + + | Date | Type | Department | Care Team | Description | +--------+ + + + + | 09/25/ | Hospital | Radiology/Imaging | Aleta Rebollar MD [address] | | | 2018 | Encounter | Lab at [facility] [address] | [address] | | | | | [address] [facility] | [place], [place] | | | | | for Health and | [address] | | | | | [facility], Building 1, | [phone] | | | | | [facility] Floor | | | | | | [facility] [place] | | | | | | [address] | | | | | | [phone] | | | +--------+ + + + [...]
--- OUTSIDE RECORDS SUMMARY | ~2020-03-09 | XMS | Encounter Summary ---
Demographics + + + | Address | [address] | | | [place] [address] | + + + | Home Phone [...] Providers + +------+ + | Care Guide Cruise Name | Role | Phone | + [...] | | Complex | Alex Alba, | [facility] [address] | | | | | regional | ,PhD [address] | Pavilion | | | | | pain | [address] | [address] | | | | | syndrome | [address] | [address], | | | | | type 1 of | Rd | Basement | | | | | left lower | [place], [place] | [place], [place] | | | | | extremity | [address] | [address] | | | | | Muscle pain | Phone: | Phone: | | | | | Procedures | [phone] | [phone] | | | | | [place] BONE | Fax: | Fax: | | | | | &/OR JOINT | [phone] | [phone] | | | | | IMAGING | [...] | | | | | | | [place] BONE | | | | | | | IMAGING, | | | | | | | LIMITED AREA | | | | | | | UT BONE | | | | | | [...] | | 2018 | Encounter | at [facility] [address] | ,PhD [address] [facility] | | | | | [address] | [address] | | | | | [address], | [place], [place] | | | | | [facility], | [address] | | | | | [place] [address] | [phone] | | | | | [phone] | | | +--------+ + + + [...]
--- OUTSIDE RECORDS SUMMARY | ~2020-03-09 | XMS | Encounter Summary ---
Demographics + + + | Address | [address] | | | [place] [address] | + + + | Home Phone [...] Providers + +------+ + | Care Director Franchise Sales Name | Role | Phone | [...] 08/11/ | Documentati | KEVIN YANEZ at [facility] | Lab, Gi Procedure | Medical Records | | 2015 | on | [facility] [address] | | Review | | | | [address] [facility] | | | | | | for Health and | | | | | | Healing, Building 2 | | | | | | [place], [place] | | | | | | [address] | | | | | | [phone] | | | +--------+ + + + [...]
--- OUTSIDE RECORDS SUMMARY | ~2020-03-09 | XMS | Encounter Summary ---
Demographics + + + | Address | [address] | | | [place] [address] | + + + | Home Phone [...] Team Providers + +------+ + | Care Tire Mounter Name | Role | Phone | + +------+ + | Justo Vazquez MD | PCP | | + +------+ + Encounter Details +--------+ + + + + | Date | Type | Department | Care Team | Description | +--------+ + + + + | 12/28/ | Forestry Adviser | [facility] Comprehensive | Alex Sanchez, | Arthralgia of lower | | 2018 | | Pain Center at | ,PhD [address] | leg, unspecified | | | | [facility] | [address] | laterality (Primary | | | | [address] | [place], [place] | Dx) | | | | [facility] for [facility] | [address] | | | | | and [facility] | [phone] | | | | | 15th Floor | | | | | | [place], [place] | | | | | | [address] | | | | | | [phone] | | | +--------+ + + + [...]
--- OUTSIDE RECORDS SUMMARY | ~2020-03-09 | XMS | Encounter Summary ---
Demographics + + + | Address | [address] | | | [place] [address] | + + + | Home Phone [...] Team Providers + +------+ + | Care Cyber Incident Handler Name | Role | Phone | [...] 2016 | | Center at [facility] [address] | MD Melissa | | | | | [address] | | | | | | for Health and | | | | | | Healing, Building 2 | | | | | | [place], [place] | | | | | | [address] | | | | | | [phone] | | | +--------+ + + + [...]
--- OUTSIDE RECORDS SUMMARY | ~2020-03-09 | XMS | Encounter Summary ---
Demographics + + + | Address | [address] | | | [place] [address] | + + + | Home Phone [...] Team Providers + +------+ + | Care Shot Hole Shooter Name | Role | Phone | [...] Rd | | | | | | [place], [place] | | | | | | [address] | | | +--------+ + + + [...]
--- OUTSIDE RECORDS SUMMARY | ~2020-03-09 | XMS | Encounter Summary ---
Demographics + + + | Address | [address] | | | [place] [address] | + + + | Home Phone [...] Team Providers + +------+ + | Care Occupational Therapy Assist Name | Role | Phone | + +------+ + | Justo Vazquez MD | PCP | | + +------+ + Encounter Details +--------+ + + + + | Date | Type | Department | Care Team | Description | +--------+ + + + + | 12/07/ | Manager Economic | [facility] | Ava Carbajal | | | 2016 | | [facility] [address] | MD [address] | | | | | [facility] | | | | | | for Health and | | | | | | Healing, Building 2 | | | | | | [place], [place] | | | | | | [address] | | | | | | [phone] | | | +--------+ + + + [...]
--- OUTSIDE RECORDS SUMMARY | ~2020-03-09 | XMS | Encounter Summary ---
Demographics + + + | Address | [address] | | | [place] [address] | + + + | Home Phone [...] Team Providers + +------+ + | Care District Ranger Name | Role | Phone | + +------+ + | Justo Vazquez MD | PCP | | + +------+ + Encounter Details +--------+ + + + + | Date | Type | Department | Care Team | Description | +--------+ + + + + | 08/03/ | Telephone | [facility] | Alex Sanchez, | | | 2018 | | Pain Center at | ,PhD [address] | | | | | [facility] | [address] | | | | | [address] | [place], [place] | | | | | [place] [facility] | [address] | | | | | and [facility] | [phone] | | | | | 1,15th Floor | | | | | | [place], [place] | | | | | | [address] | | | | | | [phone] | | | +--------+ + + + [...]
--- OUTSIDE RECORDS SUMMARY | ~2020-03-09 | XMS | Encounter Summary ---
Demographics + + + | Address | [address] | | | [place] [address] | + + + | Home Phone [...] Team Providers + +------+ + | Care Manual Plate Filler Name | Role | Phone | [...] | | | | | unspecified | [facility] | [address] | | | | | location | Rd | [facility] | | | | | Procedures | [place], [place] | Rd [place], | | | | | CONSULT TO | [address] | [place] | | | | | PAIN | | [address] | | | | | MANAGEMENT | | Phone: | | | | | | | [phone] | | | | | | | Fax: | | | | | | | [phone] | +--------+--------+ + + + + Encounter Details +--------+---------+ + + + | Date | Type | Department | Care Team | Description | +--------+---------+ + + + | 05/08/ | Office | [facility] Comprehensive | Alex Sanchez, | Complex regional | | 2018 | Visit | Pain Center at | ,PhD [address] | pain syndrome type 1 | | | | [place] | [facility] [address] | of left lower | | | | [address] | [place], [place] | extremity (Primary | | | | [facility] | [address] | Dx); Pain of upper | | | | and Healing Building | [phone] | abdomen; Intractable | | | | Floor | | cyclical vomiting | | | | [place], [place] | | with nausea; | | | | [address] | | Disturbance in sleep | | | | [phone] | | behavior; Abdominal | | | [...] MD,P hD - 05/08/2018 10:30 AM PDT [facility] Comprehensive Pain Center Return Visit Date: 05/08/2018 Chief Complaint Patient presents with Ankle pain Left Foot pain Left History of Present Illness: Tracie Farah is a 27 year old female, whose [facility] April 19, 2018, for [...] time that 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 Goes to [employer] college with a light load. Has been working at [employer], can' t work on crAmerican Board of Addiction Medicine (ABAM)ches. Has roommates. Allergies Allergen Reactions Morphine Anaphylaxis [...] by physician. Concentration is 150mg/mL. Compounded by [employer] ) KETOROLAC IM Inject into the muscle [...] GRAM-5.86 GRAM SOLUTION Take as directed by [facility] Dig[facility]ive Health- 2 gallon bowel prep [...] and summary of old medical records (source: [employer]), as summarized in the body of the [...] by Sonia Key. Alex Sanchez MD PhD Fire Range Technician Anesthesiology and Pain Management [facility] documented in this encounter Plan [...]
--- OUTSIDE RECORDS SUMMARY | ~2020-03-09 | XMS | Encounter Summary ---
Demographics + + + | Address | [address] | | | [place] [address] | + + + | Home Phone [...] Team Providers + +------+ + | Care Warper Creeler Name | Role | Phone | + +------+ + | Justo Vazquez MD | PCP | | + +------+ + Encounter Details +--------+ + + + + | Date | Type | Department | Care Team | Description | +--------+ + + + + | 06/04/ | Documentati | [facility] | Alex Sanchez, | | | 2019 | on | Pain Center at | ,PhD [address] | | | | | [facility] | [address] | | | | | [address] | [place], [place] | | | | | Mutual for [facility] | [address] | | | | | and [facility] | [phone] | | | | | 1,15th Floor | | | | | | [place], [place] | | | | | | [address] | | | | | | [phone] | | | +--------+ + + + [...]
--- OUTSIDE RECORDS SUMMARY | ~2020-03-09 | XMS | Encounter Summary ---
Demographics + + + | Address | [address] | | | [place] [address] | + + + | Home Phone [...] Providers + +------+ + | Care Accounting Administrative Assistant Name | Role | Phone | + +------+ + | Justo Vazquez MD | PCP | | + +------+ + Encounter Details +--------+ + + + + | Date | Type | Department | Care Team | Description | +--------+ + + + + | 01/26/ | Document-Sc | Health Information | Unknown . | | | 2017 | anned | Services [address] | | | | | [address] | | | | | | Mailcode: [id number] | | | | | | [facility] | | | | | | [place], [place] | | | | | | [address] | | | | | | [phone] | | | +--------+ + + + [...]
--- OUTSIDE RECORDS SUMMARY | ~2020-03-09 | XMS | Encounter Summary ---
Demographics + + + | Address | [address] | | | [place] [address] | + + + | Home Phone [...] Team Providers + +------+ + | Care Lunchroom Mother Name | Role | Phone | + [...] 2017 | | Pain Center at | RECEPTION CENTRE MANAGER [address] | | | | | [facility] | Ave [place], [place] | | | | | [address] | [address] | | | | | [facility] | [phone] | | | | | and [facility] | | | | | | 15 Floor | | | | | | [place], [place] | | | | | | [address] | | | | | | [phone] | | | +--------+ + + + [...]
--- OUTSIDE RECORDS SUMMARY | ~2020-03-09 | XMS | Encounter Summary ---
Demographics + + + | Address | [address] | | | [place] [address] | + + + | Home Phone [...] Team Providers + +------+ + | Care Freezing Room Worker Name | Role | Phone | [...] + + | 03// | Telephone | [facility] | Alex Sanchez, | Medication (clarify | | 2018 | | Pain Center at | ,PhD [address] | sig on Ketamine) | | | | [facility] | [facility] | | | | | [address] | [place], [place] | | | | | [facility] | [address] | | | | | and [facility] | [phone] | | | | | 15th Floor | | | | | | [place], [place] | | | | | | [address] | | | | | | [phone] | | | +--------+ + + + [...]
--- OUTSIDE RECORDS SUMMARY | ~2020-03-09 | XMS | Encounter Summary ---
Demographics + + + | Address | [address] | | | [place] [address] | + + + | Home Phone [...] Team Providers + +------+ + | Care Chamber Walker Name | Role | Phone | + [...] | | Pain Center at | ,PhD [address] [facility] | follow-up | | | | [facility] | [address] | | | | | [address] | [place], [place] | | | | | [facility] | [address] | | | | | and [facility] | [phone] | | | | | 15th Floor | | | | | | [place], [place] | | | | | | [address] | | | | | | [phone] | | | +--------+ + + + [...]
--- OUTSIDE RECORDS SUMMARY | ~2020-03-09 | XMS | Encounter Summary ---
Demographics + + + | Address | [address] | | | [place] [address] | + + + | Home Phone [...] Team Providers + +------+ + | Care Ranch Manager Name | Role | Phone | [...] Complex | Alex Alba, | [facility] [address] | | | | | regional | ,PhD [address] | | | | | pain | [address] | [address] | | | | | syndrome | [address] | [address], | | | | | type 1 of | Rd | Basement | | | | | left lower | [place], [place] | [place], [place] | | | | | extremity | [address] | [address] | | | | | Muscle pain | Phone: | Phone: | | | | | Procedures | [phone] | [phone] | | | | | NM BONE | Fax: | Fax: | | | | | &/OR JOINT | [phone] | [phone] | | | | | IMAGING | [...] | | | | | | AR BONE | | | | | | | IMAGING, | | | | | | | LIMITED AREA | | | | | | | AR BONE | | | | | | | IMAGING | | | | | | | (SPECT) | | | +--------+--------+ + + + + Encounter Details +--------+ + + + + | Date | Type | Department | Care Team | Description | +--------+ + + + + | 12/27/ | Ancillary | [facility] Comprehensive | Alex Sanchez, | | | 2018 | Orders | Pain Center at | ,PhD [address] [facility] | | | | | [facility] | [address] | | | | | [address] | [place], [place] | | | | | [facility] | [address] | | | | | and [facility] | [phone] | | | | | Floor | | | | | | [place], [place] | | | | | | [address] | | | | | | [phone] | | | +--------+ + + + [...] Note | + + | Service Account, [email or web address] Res In Interface - 12/28/2017 11:43 AM [...]
--- OUTSIDE RECORDS SUMMARY | ~2020-03-09 | XMS | Encounter Summary ---
Demographics + + + | Address | [address] | | | [place] [address] | + + + | Home Phone [...] Team Providers + +------+ + | Care Reinforcing Bar Setter Name | Role | Phone | [...] | | | | | extremity | [address] | [address] | | | | | Muscle pain | Phone: | Phone: | | | | | Procedures | [phone] | [phone] | | | | | REQUEST TO | Fax: | Fax: | | | | | SURGERY | [phone] | [phone] | | | | | REFINERY PROCESS ENGINEER | | | | | | | IL INJ,ANES | | | | | | | AGENT,SCIATI | | | | | | | C | | | | | | | NERVE,SINGLE | | | | | | | IL INJECT | | | | | | | NERV | | | | | | | BLCK,OTHR | | | | | | | PERIPH NERV | | | | | | | IL SONO | | | | | | | GUIDE FOR | | | | | | | NEEDLE | | | | | | | PLACEMENT | | | | | | | IL MOD | | | | | | | SEDATION | | | | | | | >=5YRS SAME | | | | | | | MD/QUAL | | | | | | | PROV; INIT | | | | | | | 15 MIN IL | | | | | | | [...] 12/27/ | Procedure | Pain Center at [facility] | Alex Sanchez, | Pain in left leg; | | 2017 | | [address] | ,PhD [address] | Procedure | | | | Center for Health | [facility] | | | | | and Healing Building | [place], [place] | | | | | Floor | [address] | | | | | [place], [place] | [phone] | | | | | [address] | | | | | | [phone] | | | +--------+ + + + [...] mi nayelit be different from the original. [facility] Patient Instructions - Post Interventional Procedure Date: 12/27/2017 Name: Tracie Farah Date of : 1990 Procedure Performed: trigger point injection and popliteal/sciatic block. Procedure Provider: Alex Sanchez MD,PhD If you have any problems you believe are associated with your procedure tonight, Please call the Hospital Wind Tunnel Engineer, and ask for the Pain Management Consu ltant. If you have problems or questions between 9:00 am and 4:00 pm, Please call the [facility] Nurse Triage Line, . If [...] paper. Please fax the pain diary to [phone] or attach a scanned image of it to a [employer] message to your doct or.. The area [...] to the larry ent. David Linares MD [facility] documented in this encounter Progress Notes Alex Sanchez MD,PhD - 12/27/2017 3:00 PM PSTI was present for the entire procedure ( popliteal nerve block and abdominal scar neuroma injection) and all bocanegra elements of this vis it. I reviewed the documentation of the other DISABILITY AIDE providers and concur with Dr. Linares's findings. I edited his note. Alex Sanchez MD,PhD Highway Administrative Engineer Anesthesiology and Pain Management [facility] David Pennington MD - 12/27/2017 3:00 PM PSTPROVIDER OPERATIVE NOTE Date: December 27, 2017 Location: [facility] Procedure Room Tracie Farah [id number] :1990, presents to clinic for: PROCEDURE: Popliteal/sciatic [...] scar neuroma ATTENDING PHYSICIAN: Alex Sanchez MD,PhD PRECISION LENS TECHNICIAN: Fellow David Linares MD ANESTHESIA: sedation Isadora [...] sedation. Ms. Farah was escorted to the [facility] Procedure R oom, where she was positioned [...] procedure. Images were saved, and sent to [employer]. Ms. Farah was transported to the [facility] Comprehensive Pain Center post-procedure recovery area. [...] by physician. Concentration is 150mg/mL. Compounded by [facility] ) LEVONORGESTREL 20 MCG/24 HR (5 [...] GRAM-5.86 GRAM SOLUTION Take as directed by [facility] Digestive [facility]- 2 gallon bowel prep POLYETHYLENE GLYCOL [...] PRE-SEDATION: Date: December 27, 2017 Tracie Farah [id number] 1990 ALLERGIES: Morphine Previous reaction to Sedation/Analgesia: [...] ride here with you? yes Who?: mother RN/RADIOGRAPHIC TECHNOLOGIST History: 1. Has your pain changed from [...] Date: December 27, 2017 Tracie Ocampojulita Farah [id number] 1990 See RN /RADIOGRAPHIC TECHNOLOGIST Pre-Sedation Note. IV ACCESS:Right subc PAC. BASELINE VS: See Sedation Flow Sheet. Tracie Donaldson Sofi [id number] 1990, presents to clinic for: Procedure: left [...] started. 1530 Midazolam 2mg IV given 1530 [id number] mcg IV given 1534 Midazolam 1mg IV given 1546 Midazolam 1mg IV given 1546 Wxabeecv422 mcg IV given 1548 Fentanyl 100 mcg IV given bupivacaine 0.5%, 9mL given, 21mL wasted Kenalog 40mg/mL 1mL, 0 mL wasted 1555 abdominal scar trigger point completed. 1558 Fentanyl 50 mcg IV given 1601 Fentanyl 50 mcg IV given [place] placed for Popliteal Nerve Block.. Placement verified [...] | + +--------+ + + + | [place] INJECTION(S), | Routin | 12/27/2017 | Complex regional | | | ANESTHETIC AGENT(S) | e | 4:32 PM | pain syndrome type 1 | | | AND/OR STEROID; | | PST | of left lower | | | OTHER PERIPHERAL | | | extremity | | | NERVE OR BRANCH | | | | | + +--------+ + + + | [place] ROPIVACAINE HCL | Routin | 12/27/2017 | Complex regional | | | INJ 0.5% | e | 4:32 PM | pain syndrome type 1 | | | | | PST | of left lower | | | | | | extremity | | + +--------+ + + + | IL MOD SEDATION | Routin | 12/27/2017 | Complex regional | | | >=5YRS SAME MD/QUAL | e | 4:32 PM | pain syndrome type 1 | | | PROV; INIT 15 MIN | | PST | of left lower | | | | | | extremity | | + +--------+ + + + documented in this encounter Results DISABILITY AIDE MISC PROCEDURE (12/27/2017 3:28 PM PST) + [...]
--- OUTSIDE RECORDS SUMMARY | ~2020-03-09 | XMS | Encounter Summary ---
Demographics + + + | Address | [address] | | | [place] [address] | + + + | Home Phone [...] Providers + +------+ + | Care Mental Health Coordinator Name | Role | Phone | + +------+ + | Justo Vazquez MD | PCP | | + +------+ + Encounter Details +--------+ + + + + | Date | Type | Department | Care Team | Description | +--------+ + + + + | 03/18/ | Telephone | [facility] | Kenny Gaspar MD | | | 2017 | | [place] [address] [address] | | | | | | [facility] | | | | | | for Health and | | | | | | [facility] 2 | | | | | | [place], [place] | | | | | | [address] | | | | | | [phone] | | | +--------+ + + + [...]
--- OUTSIDE RECORDS SUMMARY | ~2020-03-09 | XMS | Encounter Summary ---
Demographics + + + | Address | [address] | | | [place] [address] | + + + | Home Phone [...] Providers + +------+ + | Care Junior Php Developer Name | Role | Phone | + +------+ + | Justo Vazquez MD | PCP | | + +------+ + Encounter Details +--------+ + + + + | Date | Type | Department | Care Team | Description | +--------+ + + + + | 03/12/ | Application Developer Manager | [facility] Comprehensive | Alex Sanchez, | Complex regional | | 2019 | | Pain Center at | ,PhD [address] | pain syndrome type 1 | | | | [facility] | [address] | of left lower | | | | [address] | [place], [place] | extremity; S/P | | | | Center for Health | [address] | insertion of spinal | | | | and Healing Building | [phone] | cord stimulator | | | | Floor | | | | | | [place], [place] | | | | | | [address] | | | | | | [phone] | | | +--------+ + + + [...]
--- OUTSIDE RECORDS SUMMARY | ~2020-03-09 | XMS | Encounter Summary ---
Demographics + + + | Address | [address] | | | [place] [address] | + + + | Home Phone [...] Team Providers + +------+ + | Care Refrigerating Engineer Name | Role | Phone | + +------+ + | Justo Vazquez MD | PCP | | + +------+ + Encounter Details +--------+ + + + + | Date | Type | Department | Care Team | Description | +--------+ + + + + | 12/07/ | Telephone | [facility] | Alex Sanchez, | | | 2019 | | Pain Center at | ,PhD [address] | | | | | [facility] | [address] | | | | | [address] | [place], [place] | | | | | [facility] for [facility] | [address] | | | | | and [facility] | [phone] | | | | | 1,15th Floor | | | | | | [place], [place] | | | | | | [address] | | | | | | [phone] | | | +--------+ + + + [...]
--- OUTSIDE RECORDS SUMMARY | ~2020-03-09 | XMS | Encounter Summary ---
Demographics + + + | Address | [address] | | | [place] [address] | + + + | Home Phone [...] Providers + +------+ + | Care Manager Valuation Name | Role | Phone | + +------+ + | Justo Vazquez MD | PCP | | + +------+ + Encounter Details +--------+ + + + + | Date | Type | Department | Care Team | Description | +--------+ + + + + | 09/25/ | Pharmacy | [facility] | | | | 2018 | Visit | [facility] | | | | | | [address] | | | | | | Mailcode: [place] | | | | | | [facility] and | | | | | | Healing, Building [address] | | | | | | [place], [place] | | | | | | [address] | | | | | | [phone] | | | +--------+ + + + [...]
--- OUTSIDE RECORDS SUMMARY | ~2020-03-09 | XMS | Encounter Summary ---
Demographics + + + | Address | [address] | | | [place] [address] | + + + | Home Phone [...] Providers + +------+ + | Care Claims Attorney Name | Role | Phone | [...] | | pain | [address] | [place], [place] | | | | | syndrome | [place], [place] | [address] | | | | | type 1 of | [address] | Phone: | | | | | left lower | Phone: | [phone] | | | | | extremity | [phone] | Fax: | | | | | Midline low | Fax: | [phone] | | | | | back pain | [phone] | | | | | | without [...] Ave | | | | | | [place], [place] | [facility] [place] | | | | | | [address] | [address] | | | | | | Phone: | Phone: | | | | | | [phone] | [phone] | | | | | | Fax: | Fax: | | | | | | [phone] | [phone] | +--------+---------+ + + + + Encounter Details +--------+---------+ + + + | Date | Type | Department | Care Team | Description | +--------+---------+ + + + | 07/04/ | Office | [facility] Comprehensive | Lane Reyes, | Complex regional | | 2019 | Visit | Pain Center at | [place] [address] | pain syndrome type 1 | | | | [place] | [place], [place] | of left lower | | | | [address] | [address] | extremity (Primary | | | | [facility] | [phone] | Dx); Midline low | | | | and Healing Building | | back pain without | | | | 1,15th Floor | | sciatica, | | | | [place], [place] | | unspecified | | | | [address] | | chronicity; | | | | [phone] | | Sacroiliac pain; | | | [...] No saddle anesthesia or extreme weakness but overgabo ochoa does feel like her left side is [...] and help in coping with the pain. IMPLEMENTATION TECHNICIAN Brief Pain Inventory: (ten= worst possible pain [...] Hemroidectomy Trial spinal cord stimulator leads 08/02/2012 [facility], Surgeon: Janak Riojas MD Cholecystectomy Appendectomy Other [...] a light load. Has been working at [employer], can' t work on crutches. Has roommates. [...] Tests: X-RAY SPINE CERV 4 VIEWS Order: [id number] Performed: 06/12/2018 11:40 Status: Final result Visible [...] that the treatment performed by the chiropractic r d intern, Niesha Reveles, was directly observed by myself the primary chiropractor Lane Reyes [place] Visit Diagnoses: ICD-10-CM 1. Complex regional pain syndrome type 1 of left lower extremity G90.522 CONSULT TO PAIN [facility] 2. Midline low back pain without sciatica, unspecified chronicity M54.5 CONSULT TO PAIN [facility] 3. Sacroiliac pain M53.3 CONSULT TO [...] a spinal core simulation surgery in [facility] of this year. Ms. Farah was alert [...] verified the above note written by Chiropractic r d intern of our visit wit h this patient as recorded by Lane Reyes DC [facility] PAIN CENTER AT [address] Mail Code: [place]15[place] [address] documented in this e ncounter [...]
--- OUTSIDE RECORDS SUMMARY | ~2020-03-09 | XMS | Encounter Summary ---
Demographics + + + | Address | [address] | | | [place] [address] | + + + | Home Phone [...] Providers + +------+ + | Care Energy Risk Management Analyst Name | Role | Phone [...] Oliveira | | 2011 | IP | [address] | | House - Approved | | | | Giuliana Maldonado [place], | | | | | | [place] [address] | | | +--------+ + + + [...]
--- OUTSIDE RECORDS SUMMARY | ~2020-03-09 | XMS | Encounter Summary ---
Demographics + + + | Address | [address] | | | [place] [address] | + + + | Home Phone [...] Providers + +------+ + | Care Heating Element Builder Name | Role | Phone | [...] | Diagnoses | Beulah | Edu Pt Leadlighter | | | | Therapy | CRPS | Janak Martinez MD | [address] | | | | | (complex | [address] | | | | | regional | [address] | Mailcode: | | | | | pain | Mailstop | [facility] | | | | | syndrome), | [id number] | for Health | | | | | lower limb | [place] | and Healing, | | | | | Gait | [address] | Building 1 | | | | | disturbance | Phone: | [place], [place] | | | | | Muscle pain | [phone] | [address] | | | | | Procedures | Fax: | Phone: | | | | | PHYSICAL | [phone] | [phone] | | | | | THERAPY | [...] | | | [place] | Ave [place], [place] | syndrome), lower | | | | [address] | [phone] | limb (Primary Dx) | | | | [place] [facility] | | | | | | and Healing, | | | | | | Building 1, | | | | | | Floor [place], [place] | | | | | | [address] | | | | | | [phone] | | | +--------+---------+ + + + [...] might be different f rom the original. [id number] BRODY FARAH Date of : 1990 Start of care: 02/14/2012 Date of onset: 02/14/2012 Referring/Attending Practitioner: Janak Riojas MD . Primary/Referral Diagnosis/ICD-9: 355.71B CRPS (complex regional pain syndrome), lower limb Insurance: Payor: [facility] Plan: BCBS OUT OF STATE Product Type: PP O Service period from: 02/14/2012 to: 08/12/2012 Number visits used/authorized: 01/23 [facility] PHYSICAL THERAPY PROGRESS NOTE SUBJECTIVE: Age: 21 y.o. Sex: female Chief complaint: No chief complaint on file. Current: pt has been doing her neck exercises. She is not shaking as much. Her foot hurts t bruno. Now she is working at [employer] 2-3 hours per week, and spends a [...] [facility] Outpatient Rehabilitation Services Mailcode: Ch3k 0770 [facility], [address] [place] [address] documented in this encounter Plan of Treatment Not on filedocumented as of this encounter Procedures + +--------+ + + + | Procedure Name | Priori | Date/Time | Associated Diagnosis | Comments | | | ty | | | | + +--------+ + + + | OK THERAPEUTIC | Routin | 05/11/2012 | CRPS [...]
--- OUTSIDE RECORDS SUMMARY | ~2020-03-09 | XMS | Encounter Summary ---
Demographics + + + | Address | [address] | | | [place] [address] | + + + | Home Phone [...] Team Providers + +------+ + | Care Finish Grinder Name | Role | Phone | [...] + | 09/30/ | Telephone | [facility] Ilene | Ilene Bright, | Phone communication | | 2017 | | Pain Center at | LEATHER POLISHER [address] | | | | | [facility] [place] | Ave [place], [place] | | | | | [address] | [address] | | | | | [facility] | [phone] | | | | | and [facility] | | | | | | 1,15th Floor | | | | | | [place], [place] | | | | | | [address] | | | | | | [phone] | | | +--------+ + + + [...]
--- OUTSIDE RECORDS SUMMARY | ~2020-03-09 | XMS | Encounter Summary ---
Demographics + + + | Address | [address] | | | [place] [address] | + + + | Home Phone [...] Team Providers + +------+ + | Care Electro Mechanical Engineer Name | Role | Phone | [...] | | | | | syndrome | [facility] | [facility] | | | | | type 1 of | Rd | Rd [place], | | | | | left lower | [facility], [place] | [place] | | | | | extremity | [address] | [address] | | | | | Procedures | Phone: | Phone: | | | | | REQUEST TO | [phone] | [phone] | | | | | SURGERY | Fax: | Fax: | | | | | REPORTING SPECIALIST | [phone] | [phone] | +--------+---------+ + + + + Reason [...] | | | | | Procedures | [place], [place] | Joel [place], | | | | | CONSULT TO | [address] | [place] | | | | | PAIN | | [address] | | | | | MANAGEMENT | | Phone: | | | | | | | [phone] | | | | | | | Fax: | | | | | | | [phone] | +--------+--------+ + + + + Encounter Details +--------+---------+ + + + | Date | Type | Department | Care Team | Description | +--------+---------+ + + + | 10/09/ | Office | [facility] | Alex Sanchez, | Complex regional | | 2018 | Visit | Pain Center at | ,PhD [address] [facility] | pain syndrome type 1 | | | | [facility] | [facility] [address] | of left lower | | | | [address] | [place], [place] | extremity (Primary | | | | [place] for [facility] | [address] | Dx) | | | | and Healing Building | [phone] | | | | | Floor | | | | | | [place], [place] | | | | | | [address] | | | | | | [phone] | | | +--------+---------+ + + + [...] with an external order to see a medical sales specialist today. Please p resent this referral [...] insurance. PRE-PROCEDURE INSTRUCTIONS 1. Please bring a line haul driver with you as we may give [...] weeks before your procedure, please contact [facility] to cl arify your instructions. The phone number for questions or concerns is [phone]. documented in this encounter Progress Notes Alex [...] notes. Alex Sanchez MD,PhD [facility] signed by Alex Sanchez MD,PhD at 09/15 [...] Person MD - 10/09/2018 10:00 AM PST [facility] Return Visit Date: 10/09/2018 Chief Complaint Patient presents with Back pain Low back pain Pain in left leg Knee pain Ankle pain Foot pain History of Present Illness: Tracie Farah is a 28 year old female, whose last appoi ntment at the [facility] [place] was September 28, 2018, for a clinic visit with Yun Frey NP. At that time our plans were: Recommendations/Plan: 1. Recommend to keep her appointment with Dr. Sanchez on 10/02/2018. 2. To contact the [place]'s rep if she has any further question [...] She went into the emergency room in [place], [place] where they rem cady the leads. She [...] which she suspects also used dissolvable stitches. APPRAISER BOATS AND MARINE Brief Pain Inventory: (ten= worst possible pain [...] Trial spinal cord stimulator leads 08/02/2012 [facility], Surgeon: Janak Riojas MD Cholecystectomy Appendectomy [...] a light load. Has been working at [employer], can' t work on [employer]. Has roommates. Allergies Allergen Reactions Morphine Anaphylaxis [...] the vein (IV) every eight hour s. 7809-8023-30 COMPOUNDED MED RX CONTROLLED (SEE ADMIN INSTRUCT [...] by physician. Concentration is 150mg/mL. Compounded by [facility] ( [phone]) KETOROLAC IM Inject into the muscle (IM). [...] (IV) every twel ve hours as needed. 3602-9465-01 ONDANSETRON 4 MG DISINTEGRATING TABLET Dissolve 1 [...] and summary of old medical records (source: [employer]), as summarized in the body of the [...] Key. Arben Valerio MD [facility] C[facility] AT [facility] 15TH FLOOR [address] [facility] Mail Code: [place] [address] [phone] signed by Alex Sanchez MD,PhD at 10/10/2018 9:27 AM [facility] umented in this encounter Plan of Treatment Not on filedocumented as of this encounter Visit Diagnoses + + | Diagnosis | + + | Complex regional pain syndrome type 1 of left lower extremity - Primary | + + documented in this encounter
--- OUTSIDE RECORDS SUMMARY | ~2020-03-09 | XMS | Encounter Summary ---
Demographics + + + | Address | [address] | | | [place] [address] | + + + | Home Phone [...] Team Providers + +------+ + | Care Methods Analyst Name | Role | Phone | [...] [facility] | [facility], | | | | | [address] | [place] [address] | | | | | [facility] | [phone] | | | | | and [facility] | | | | | | ,15th Floor | | | | | | [place], [place] | | | | | | [address] | | | | | | [phone] | | | +--------+ + + + [...]
--- OUTSIDE RECORDS SUMMARY | ~2020-03-09 | XMS | Encounter Summary ---
Demographics + + + | Address | [address] | | | [place] [address] | + + + | Home Phone [...] Team Providers + +------+ + | Care Mapper Name | Role | Phone | + [...]
--- OUTSIDE RECORDS SUMMARY | ~2020-03-09 | XMS | Clinical Summary ---
Demographics + + + | Address | [address] | | | [place] [address] | + + + | Home Phone [...] | [facility] | + + + | Organization | [facility] | + + + | Address | Unknown | + + + | Phone | Unavailable | + + + Support + + +---------+ + | Name | Relationship | Address | Phone | + + +---------+ + | Patricia Colin | ECON | Unknown | | + + +---------+ + Care Team Providers + +------+ + | Care Instructor Dramatic Arts Name | Role | Phone | + +------+ + | Justo Vazquez MD | PCP | | + +------+ + Source Comments KEVIN is fully live on both [facility] Ambulatory and [facility] InPatient.[facility] Allergies + + + + + [...] Noted Date | + + + | [facility] CLINICAL PROTOCOL PATIENT (PETER) - Implanted Spinal Cord | 12/14/2018 | | Stimulator | | + + + + + | Overview: Patient has an implanted [employer] spinal | | cord stimulator. Model#: [id number]. Contact [phone] for | | technical assistance.Contraindications:Sources of strong [...] | Right: | BARD | | | [id number] | | Port-10/05/2016Implanted: | | Chest | | | | 0 / | | 10/05/2016 by Obdulio Simpson, | | | | | | /VIKY | | (Quantity not on file) | | | | | | 204 | + +------+--------+ +--------+--------+--------+ + + | Description:Not Power | | Injectable, Progress record | | faxed from [facility] | | Hospital in [place], [place], | | [facility] RN | + + + +---+---+ +---+--------+--------+ | Slimtip DrgImplanted: Qty: 1 | | | [facility] | | 01/06/ | [id number] | | on 12/05/2018 by Daniel, | | | MEDICAL SC | | 2020 | 0-50A | | Alex Alba MD,PhD at [facility] | | | | | | /[id number] | | INPATIENT REV LOC | | | | | | 371 / | + +---+---+ +---+--------+--------+ + + | Description:Level 4 | + + + +---+---+ +---+---+--------+ | Slimtip DrgImplanted: Qty: 1 | | | [facility] | | | [id number] | | on 12/05/2018 by Daniel, | | | MEDICAL SC | | | 0-50A | | Alex Alba MD,PhD at [facility] | | | | | | /[id number] | | INPATIENT REV LOC | | [...] / | | Alex Alba MD,PhD at [facility] | | | | | | [...] | | | | | | | [address] | | + +--------+ +--------+ + +--------+ | CUSTOMER SUPPLY COORDINATOR MEDICAID | CUSTOMER SUPPLY COORDINATOR | [id number] | 11/14/19 | | | [...] | 1990 | [phone] | [place] [address] | | | evita | | | [...]
--- OUTSIDE RECORDS SUMMARY | ~2020-03-09 | XMS | Encounter Summary ---
Demographics + + + | Address | [address] | | | [place] [address] | + + + | Home Phone [...] Team Providers + +------+ + | Care Boot And Saddle Repair Person Name | Role | Phone | [...] | | | | | unspecified | [facility] | [address] | | | | | location | Rd | [facility] | | | | | Procedures | [place], [place] | Rd [place], | | | | | CONSULT TO | [address] | [place] | | | | | PAIN | | [address] | | | | | MANAGEMENT | | Phone: | | | | | | | [phone] | | | | | | | Fax: | | | | | | | [phone] | +--------+--------+ + + + + Encounter Details +--------+---------+ + + + | Date | Type | Department | Care Team | Description | +--------+---------+ + + + | 05/08/ | Office | [facility] | Alex Sanchez, | Complex regional | | 2018 | Visit | Pain Center at | ,PhD [address] | pain syndrome type 1 | | | | [place] | [facility] [address] | of left lower | | | | [address] | [place], [place] | extremity (Primary | | | | [facility] | [address] | Dx); Pain of upper | | | | and Healing Building | [phone] | abdomen; Intractable | | | | Floor | | cyclical vomiting | | | | [place], [place] | | with nausea; | | | | [address] | | Disturbance in sleep | | | | [phone] | | behavior; Abdominal | | | [...] hD - 05/08/2018 10:30 AM PDT [facility] Return Visit Date: 05/08/2018 Chief Complaint Patient presents with Ankle pain Left Foot pain Left History of Present Illness: Tracie Farah is a 27 year old female, whose last appoi ntment at the [facility] was April 19, 2018, [...] time that 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 Goes to [employer] college with a light load. 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 Has roommates. Allergies Allergen Reactions Morphine Anaphylaxis [...] by physician. Concentration is 150mg/mL. Compounded by [employer] ) KETOROLAC IM Inject into the muscle [...] GRAM SOLUTION Take as directed by [facility]- 2 gallon bowel prep POLYETHYLENE [...] and summary of old medical records (source: [employer]), as summarized in the body of [...] by Sonia Key. Alex Sanchez MD PhD Real Estate Management Specialist Anesthesiology and Pain Management [facility] documented in this encounter Plan of [...]
--- OUTSIDE RECORDS SUMMARY | ~2020-03-09 | XMS | Encounter Summary ---
Demographics + + + | Address | [address] | | | [place] [address] | + + + | Home Phone [...] Providers + +------+ + | Care Maintenance Team Leader Name | Role | Phone [...] jorge | | | | | [facility] | [place], [place] | | | | | for Health and | [address] | | | | | Healing, Building 1, | [phone] | | | | | [facility] Floor | | | | | | [facility] [place] | | | | | | [address] | | | | | | [phone] | | | +--------+ + + + [...] Note | + + | Service Account, [employer] Res In Interface - 03/08/2018 9:42 AM [...]
--- OUTSIDE RECORDS SUMMARY | ~2020-03-09 | XMS | Encounter Summary ---
Demographics + + + | Address | [address] | | | [place] [address] | + + + | Home Phone [...] Providers + +------+ + | Care Safety Physician Name | Role | Phone | + +------+ + | Justo Vazquez MD | PCP | | + +------+ + Encounter Details +--------+ + + + + | Date | Type | Department | Care Team | Description | +--------+ + + + + | 01/06/ | Document-Ca | [facility] | Alex Sanchez, | | | 2018 | annemily | Pain Center at | ,PhD [address] | | | | | [facility] | [facility] [address] | | | | | [address] | [place], [place] | | | | | [place] for [facility] | [address] | | | | | and [facility] | [phone] | | | | | 1,15th Floor | | | | | | [place], [place] | | | | | | [address] | | | | | | [phone] | | | +--------+ + + + [...]
--- OUTSIDE RECORDS SUMMARY | ~2020-03-09 | XMS | Encounter Summary ---
Demographics + + + | Address | [address] | | | [place] [address] | + + + | Home Phone [...] Providers + +------+ + | Care Medical Editor Name | Role | Phone | [...] | | Pain | Complex | Ilene, PHONE COUNSELOR | Catriona M, | | | | Management | regional | [address] | [address] | | | | | pain | [address] | [address] | | | | | syndrome | [place], [place] | [place], [place] | | | | | type 1 of | [address] | [address] Phone: | | | | | left lower | Phone: | [phone] | | | | | extremity | [phone] | Fax: | | | | | Intractable | Fax: | [phone] | | | | | cyclical | [phone] | | | | | | vomiting [...] | | | | | | | [place] | | | | | | | PSYCHIATRIC | | | | | | | DIAGNOSTIC | | | | | | | EVAL, NO MED | | | | | | | SVCS [place] | | | | | | | PSYCH TSTNG | | | | | | | PSYCH/PHYS | | | | | | | [place] | | | | | | | PSYCHOTHERAP | | | | | | | Y, 45 MIN | | | +--------+---------+ + + + + Encounter Details +--------+---------+ + + + | Date | Type | Department | Care Team | Description | +--------+---------+ + + + | 10/11/ | Office | [facility] Center at [facility] | Jamel Bravo, | Adjustment disorder | | 2017 | Visit | [address] | PhD [address] | with mixed anxiety | | | | [facility] | Ave [place], [place] | and depressed mood | | | | and Healing Building | [address] | (Primary Dx); | | | | 1, 15th Floor | [phone] | Complex regional | | | | [facility] [place] | | pain syndrome type 1 | | | | [address] | | of left lower | | | | [phone] | | extremity; Abdominal | | | [...] Jamel Bravo, PhD - 10/11/2017 10:50 AM [facility] Initial Psychologica l Evaluation IDENTIFYING INFORMATION: Tracie Farah is a 27 y.o. female Date of : 1990 Consulting Psychologist: JAMEL BRAVO PHD Consultation Date: 10/11/2017 Referring Provider: Ilene Bright Identifying Information: Tracie Farah is a 27 y.o. female who lives with her paren ts in [place], [place]. The patient was referred for pain [...] by physician. Concentration is 150mg/mL. Compounded by [employer] ([phone]), Disp: , Rfl: 5 lamoTRIgine 200 mg [...] oral recon soln, Take as directed by [facility]- 2 gallon bowel prep, Disp: [...] e. 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 For enjoyment the patient watches TV, reads, [...] time I spent was approximately 50 minutes yvse-tk-hfuv with the patient and approxima tely 1 hour 40 minutes of rxj-ppff-qy-face testing, interpreting and synthesizing results. Jamel Bravo, PhD PAIN CENTER AT [facility] 15TH FLOOR [address] [facility] Mail Code: Ch15[place] [address] documented in this en counter [...]
--- OUTSIDE RECORDS SUMMARY | ~2020-03-09 | XMS | Encounter Summary ---
Demographics + + + | Address | [address] | | | [place] [address] | + + + | Home Phone [...] Team Providers + +------+ + | Care Brass And Wind Instrument Repairer Name | Role | Phone | + +------+ + | Allegra Gandhi | PCP | | + +------+ + Encounter Details +--------+ + + + + | Date | Type | Department | Care Team | Description | +--------+ + + + + | 02/13/ | Hospital | Nuclear Medicine | | | | 2011 | Encounter | at [facility] [address] | | | | | | [address] | | | | | | [place], | | | | | | [place], | | | | | | [place] [address] | | | | | | [phone] | | | +--------+ + + + [...]
--- OUTSIDE RECORDS SUMMARY | ~2020-03-09 | XMS | Encounter Summary ---
Demographics + + + | Address | [address] | | | [place] [address] | + + + | Home Phone [...] Providers + +------+ + | Care Salon Leader Name | Role | Phone | [...] Rd | | | | | | [place], [place] | | | | | | [address] | | | +--------+ + + + [...]
--- OUTSIDE RECORDS SUMMARY | ~2020-03-09 | XMS | Encounter Summary ---
Demographics + + + | Address | [address] | | | [place] [address] | + + + | Home Phone [...] Providers + +------+ + | Care Cash Analyst Name | Role | Phone | + +------+ + | Justo Vazquez MD | PCP | | + +------+ + Encounter Details +--------+ + + + + | Date | Type | Department | Care Team | Description | +--------+ + + + + | 05/18/ | Telephone | [facility] | Alex Sanchez, | | | 2019 | | Pain Center at | ,PhD [address] | | | | | [facility] | [address] | | | | | [address] | [place], [place] | | | | | [place] for [facility] | [address] | | | | | and [facility] | [phone] | | | | | 1,15th Floor | | | | | | [place], [place] | | | | | | [address] | | | | | | [phone] | | | +--------+ + + + [...]
--- OUTSIDE RECORDS SUMMARY | ~2020-03-09 | XMS | Encounter Summary ---
Demographics + + + | Address | [address] | | | [place] [address] | + + + | Home Phone [...] Team Providers + +------+ + | Care Configuration Management Analyst Name | Role | Phone | + +------+ + | Justo Vzaquez MD | PCP | | + +------+ + Encounter Details +--------+ + + + + | Date | Type | Department | Care Team | Description | +--------+ + + + + | 06/04/ | Documentati | [facility] | Alex Sanchez, | | | 2019 | on | Pain Center at | ,PhD [address] | | | | | [facility] | [address] | | | | | [address] | [place], [place] | | | | | [place] for [facility] | [address] | | | | | and [facility] | [phone] | | | | | 1,15th Floor | | | | | | [place], [place] | | | | | | [address] | | | | | | [phone] | | | +--------+ + + + [...]
--- OUTSIDE RECORDS SUMMARY | ~2020-03-09 | XMS | Clinical Summary ---
Demographics + + + | Address | [address] | | | [place] [address] | + + + | Home Phone | | + + + | Preferred Language | Unknown | + + + | Marital Status | Single | + + + | Yarsani Affiliation | 1013 | + + + | Race | Unknown | + + + | Ethnic Group | Unknown | + + + Author + + + | Author | [employer] (Historical as of | | | 06-30-19) | + + + | Organization | [facility] (Historical as of | | | 06-30-19) [...] Team Providers + +------+ + | Care Telecom Analyst Name | Role | Phone | [...] She has undergone extensive therapy at [facility] | | [facility] at pain clinics in [place] as well and | | [place], [place]. She has had sympathetic nerve blocks [...] +------+-------+ + | MEDICARE | MEDICA | [id number] | | | [address] | | | RE | | | | [place] [address] | | | IP-OP | | | | | + +--------+ +------+-------+ + | PREMERA | PREMER | [id number] | | | [address] [address] | | | A BLUE | 3 | | | [place], [place] | | | CARD | | | | [address] | + +--------+ +------+-------+ + | MEDICAID | [place] | [id number] | | | [address] | | | CARE | | | | [place] | | | [place] | | | | [address] | + +--------+ +------+-------+ + + +--------+ [...] | | al/Fam | | 1989 | [phone] | [place], [place] | | | evita | | | [address] | [address] | + +--------+ +--------+ + +
--- OUTSIDE RECORDS SUMMARY | ~2020-03-09 | XMS | Encounter Summary ---
Demographics + + + | Address | [address] | | | [place] [address] | + + + | Home Phone [...] Team Providers + +------+ + | Care Briquette Machine Operator Helper Name | Role | [...] | Diagnoses | Beulah | Edu Pt Laboratory Specialist | | | | Therapy | CRPS | Janak Martinez MD | [address] | | | | | (complex | [address] | | | | | regional | [address] | Mailcode: | | | | | pain | Mailstop | [facility] | | | | | syndrome), | [id number] | for Health | | | | | lower limb | [place], [place] | and Healing, | | | | | Gait | [address] | Building 1 | | | | | disturbance | Phone: | [place], [place] | | | | | Muscle pain | [phone] | [address] | | | | | Procedures | Fax: | Phone: | | | | | PHYSICAL | [phone] | [phone] | | | | | THERAPY | [...] | | | [place] | Ave [place], [place] | syndrome), lower | | | | [address] | [phone] | limb (Primary Dx) | | | | [place] for [facility] | | | | | | and Healing, | | | | | | Building 1, | | | | | | Floor [place], [place] | | | | | | [address] | | | | | | [phone] | | | +--------+---------+ + + + [...] might be different f rom the original. [id number] BRODY FARAH Date of : 1990 Start of care: 02/14/2012 Date of onset: 02/14/2012 Referring/Attending Practitioner: Janak Riojas MD . Primary/Referral Diagnosis/ICD-9: 355.71B CRPS (complex regional pain syndrome), lower limb Insurance: Payor: [facility] Geeksphone Plan: BCBS OUT OF STATE Product Type: PP O Service period from: 02/14/2012 to: 08/12/2012 Number visits used/authorized: 04/25 [facility] PHYSICAL THERAPY PROGRESS NOTE SUBJECTIVE: Age: 21 y.o. Sex: female Chief complaint: foot pain Current: pt was OK post last treatment. She saw Dr Riojas. She is doing her home exercise p dimitris. History of Presenting Problems: Broyd Farah is [...] MEDICAL CENTER Outpatient Rehabilitation Services Mailcode: Ch3p [address] [facility] [place], [address] [place] [address] documented in this encounter Plan of Treatment Not on filedocumented as of this encounter Procedures + +--------+ + + + | Procedure Name | Priori | Date/Time | Associated Diagnosis | Comments | | | ty | | | | + +--------+ + + + | DE THERAPEUTIC | Routin | 06/13/2012 | CRPS [...]
--- OUTSIDE RECORDS SUMMARY | ~2020-03-09 | XMS | Encounter Summary ---
Demographics + + + | Address | [address] | | | [place] [address] | + + + | Home Phone [...] Team Providers + +------+ + | Care Crotch Breaker Name | Role | Phone | + [...] | | | 2019 | Event | [facility] | MD Juan [address] | | | | | and Healing Surgery | [address] | | | | | Center Admitting | [place], [place] | | | | | Desk Located on the | [address] | | | | | 4th floor [address] | [phone] | | | | | [address] [place], | | | | | | [place] [address] | Arben Valerio MD | | | | | | [address] | | | | | | [address] | | | | | | [place], [place] | | | | | | [address] | | | | | | [phone] | | | | | | | [...]
--- OUTSIDE RECORDS SUMMARY | ~2020-03-09 | XMS | Encounter Summary ---
Demographics + + + | Address | [address] | | | [place] [address] | + + + | Home Phone [...] Team Providers + +------+ + | Care Lubrication Worker Name | Role | Phone | [...] Rd | | | | | | [place], [place] | | | | | | [address] | | | +--------+ + + + [...]
--- OUTSIDE RECORDS SUMMARY | ~2020-03-09 | XMS | Encounter Summary ---
Demographics + + + | Address | [address] | | | [place] [address] | + + + | Home Phone [...] Providers + +------+ + | Care Hospital Corpsman Name | Role | Phone | + [...] | | [facility] | [facility], | | | | | [address] | [place] [address] | | | | | [facility] | [phone] | | | | | and [facility] | | | | | | Floor | | | | | | [place], [place] | | | | | | [address] | | | | | | [phone] | | | +--------+ + + + [...]
--- OUTSIDE RECORDS SUMMARY | ~2020-03-09 | XMS | Encounter Summary ---
Demographics + + + | Address | [address] | | | [place] [address] | + + + | Home Phone [...] Team Providers + +------+ + | Care Firefighter Type One Name | Role | Phone | + [...] Medical Records | | 2017 | | [place] at [facility] [address] | MD Melissa | Review | | | | [address] [facility] | | | | | | for Health and | | | | | | [facility], [facility] 2 | | | | | | [place], [place] | | | | | | [address] | | | | | | [phone] | | | +--------+ + + + [...]
--- OUTSIDE RECORDS SUMMARY | ~2020-03-09 | XMS | Encounter Summary ---
Demographics + + + | Address | [address] | | | [place] [address] | + + + | Home Phone [...] Providers + +------+ + | Care Maintenance Service Dispatcher Name | Role | Phone | + +------+ + | Justo Vazquez MD | PCP | | + +------+ + Encounter Details +--------+ + + + + | Date | Type | Department | Care Team | Description | +--------+ + + + + | 01/11/ | Procedure | Diagnostic Imaging | | | | 2016 | Pass | Services at [facility] | | | | | | [address] | | | | | | [address] | | | | | | [facility] | | | | | | [place], [place] | | | | | | [address] | | | | | | [phone] | | | +--------+ + + + [...]
--- OUTSIDE RECORDS SUMMARY | ~2020-03-09 | XMS | Encounter Summary ---
Demographics + + + | Address | [address] | | | [place] [address] | + + + | Home Phone [...] Providers + +------+ + | Care Clinical Mental Health Counselor Name | Role | Phone | [...] | | | | | Procedures | [place], [place] | | | | | | MR | [id number] | | | | | | ENTEROGRAPHY [...] | 2017 | Visit | Center at [facility] [address] | | unspecified location | | | | [facility] | | (Primary Dx) | | | | for Health and | | | | | | Healing, Building 2 | | | | | | [place], [place] | | | | | | [address] | | | | | | [phone] | | | +--------+---------+ + + + [...] heavy metal poisoning 2) MR enterography - [phone] to schedule 3) can increase miralax to 6 times per day Return to clinic in 3 months Please feel free to call our clinic with any questions. [phone] Kenny Gaspar MD Fellow, Division of Gastroenterology [...] n their attached note. Celia Lin MD Solution Leadassociate property manager Division of Gastroenterology & Hepatology [facility] Kenny Dodge Md - 2016 3:15 PM PST Gastroenterology Clinic Follow-Up Note 01/11/2017 CC/ID: Tracie Farah is a 26 F PMHx depression, complex regional pain syndrome(CRPS ) here for follow-up of n/v, abdominal pain INTERVAL HISTORY: Previously seen by Dr. Carbajal 08/10/16 - 10/2015 - hospitalized at [facility] for nausea/vomiting/pain -> [facility] -> CT [...] oral recon soln Take as directed by [facility]- 2 gallon bowel prep 8000 mL [...] Note | + + | Service Account, [employer] In Interface - 02/01/2017 3:50 PM [...]
--- OUTSIDE RECORDS SUMMARY | ~2020-03-09 | XMS | Encounter Summary ---
Demographics + + + | Address | [address] | | | [place] [address] | + + + | Home Phone [...] Team Providers + +------+ + | Care Beef Grader Name | Role | Phone | [...] | | | | | [address] | | | | | | [address] | | | | | | [place], | | | | | | [address] [place] [address], | | | | | | [place] [address] | | | | | | [phone] | | | +--------+ + + + [...]
--- OUTSIDE RECORDS SUMMARY | ~2020-03-09 | XMS | Encounter Summary ---
Demographics + + + | Address | [address] | | | [place] [address] | + + + | Home Phone [...] Providers + +------+ + | Care Patent Chemist Name | Role | Phone | + [...] | | pain | [address] | [place], [place] | | | | | syndrome | [place] | [address] | | | | | type 1 of | [address] | Phone: | | | | | left lower | Phone: | [phone] | | | | | extremity | [phone] | Fax: | | | | | Midline low | Fax: | [phone] | | | | | back pain | [phone] | | | | | | without [...] Ave | | | | | | [place], [place] | [facility] [place] | | | | | | [address] | [address] | | | | | | Phone: | Phone: | | | | | | [phone] | [phone] | | | | | | Fax: | Fax: | | | | | | [phone] | [phone] | +--------+---------+ + + + + Encounter Details +--------+---------+ + + + | Date | Type | Department | Care Team | Description | +--------+---------+ + + + | 07/04/ | Office | [facility] | Lane Reyes, | Complex regional | | 2019 | Visit | Pain Center at | [place] [address] | pain syndrome type 1 | | | | [place] | [place], [place] | of left lower | | | | [address] | [address] | extremity (Primary | | | | Center for Health | [phone] | Dx); Midline low | | | | and Healing Building | | back pain without | | | | 1,15th Floor | | sciatica, | | | | [place], [place] | | unspecified | | | | [address] | | chronicity; | | | | [phone] | | Sacroiliac pain; | | | [...] and help in coping with the pain. THERAPIST PHYS Brief Pain Inventory: (ten= worst possible pain [...] Trial spinal cord stimulator leads 08/02/2012 [facility], Surgeon: Janak Riojas MD Cholecystectomy Appendectomy Other [...] a light load. Has been working at [employer], can' t work on crutches. Has roommates. [...] Tests: X-RAY SPINE CERV 4 VIEWS Order: [id number] Performed: 06/12/2018 11:40 Status: Final result Visible [...] that the treatment performed by the chiropractic merchandising internship, Niesha Reveles, was directly observed by myself the primary chiropractor Lane Reyes [place] Visit Diagnoses: ICD-10-CM 1. Complex regional pain syndrome type 1 of left lower extremity G90.522 CONSULT TO PAIN [facility] 2. Midline low back pain without sciatica, unspecified chronicity M54.5 CONSULT TO PAIN [facility] 3. Sacroiliac pain M53.3 CONSULT TO PAIN MANAGEMENT CO CHIROPRAC MANIP,SPINAL,1-2 REGIONS 4. Sacral dysfunction M53.3 CO CHIROPRAC MANIP,SPINAL,1-2 REGIONS 5. Somatic dysfunction of pelvis region M99.05 CO CHIROPRAC MANIP,SPINAL,1-2 REGIONS 6. Somatic dysfunction of sacral region M99.04 CO CHIROPRAC MANIP,SPINAL,1-2 REGIONS Impression: Tracie Farah is a very pleasant 29 year old female who complains today of low back , mid back and neck pain. Her pain intensified after a spinal core simulation surgery in [facility] of this year. Ms. Farah was alert [...] verified the above note written by Chiropractic merchandising internship of our visit wit h this patient as recorded by Lane Reyes DC [facility] AT [address] Mail Code: [address] [address] documented in this e ncounter Plan of Treatment Not on filedocumented as of this encounter Procedures + +--------+ + + + | Procedure Name | Priori | Date/Time | Associated Diagnosis | Comments | | | ty | | | | + +--------+ + + + | CO CHIROPRAC | Routin | 07/10/2019 | Sacroiliac [...]
--- OUTSIDE RECORDS SUMMARY | ~2020-03-09 | XMS | Encounter Summary ---
Demographics + + + | Address | [address] | | | [place] [address] | + + + | Home Phone [...] Providers + +------+ + | Care Machine Clerical Verifier Name | Role | Phone | + [...] Center at [facility] [address] | [address] | | | | | [address] [facility] | [address] | | | | | [facility] Health and | [place], [place] | | | | | [facility], [facility] 2 | [address] | | | | | [place], [place] | [phone] | | | | | [address] | | | | | | [phone] | | | +--------+ + + + [...]
--- OUTSIDE RECORDS SUMMARY | ~2020-03-09 | XMS | Encounter Summary ---
Demographics + + + | Address | [address] | | | [place] [address] | + + + | Home Phone | | + + + | Preferred Language | Unknown | + + + | Marital Status | Single | + + + | Spiritism Affiliation | 1073 | + + + | Race | Unknown | + + + | Ethnic Group | Unknown | + + + Author + + + | Author | [facility] | | | and [place] | + + + | Organization | [facility] | | | and [...] [place] | | | | | [address] | | + + + + + | Bryant Farah | ERICKA | Unknown | | + + + + + Care Team Providers + +------+ + | Care Car Repairer Pullman Name | Role | Phone | + +------+ + PCP | Unavailable | + +------+ + Encounter Details +--------+ + + + + | Date | Type | Department | Care Team | Description | +--------+ + + + + | 08/11/ | Hospital | [facility] | | | | 1998 | Encounter | MED CTR XRAY [address] | | | | | | [address] | | | | | | [place] [address] | | | | | | [phone] | | | +--------+ + + + [...]
--- OUTSIDE RECORDS SUMMARY | ~2020-03-09 | XMS | Encounter Summary ---
Demographics + + + | Address | [address] | | | [place] [address] | + + + | Home Phone [...] Providers + +------+ + | Care Solar Energy Specialist Name | Role | Phone | + +------+ + | Allegra Chaudhary | PCP | | + +------+ + Encounter Details +--------+ + + + + | Date | Type | Department | Care Team | Description | +--------+ + + + + | 10/21/ | Telephone | [facility] | Antony Beltre, | | | 2014 | | [place] [address] [address] | [address] | | | | | [address] [place] | [place] [address] | | | | | for Health and | [phone] | | | | | [facility] 2 | | | | | | [place], [place] | | | | | | [address] | | | | | | [phone] | | | +--------+ + + + [...]
--- OUTSIDE RECORDS SUMMARY | ~2020-03-09 | XMS | Encounter Summary ---
Demographics + + + | Address | [address] | | | [place] [address] | + + + | Home Phone [...] + + + | Author | [facility] | | | and [place] | + + + | Organization | [facility] [...] [place] | | | | | [address] | | + + + + + | Bryant Farah | ECON | Unknown | | + + + + + Care Team Providers + +------+ + | Care Surveyor Oil Well Directional Name | Role | Phone | + +------+ + PCP | Unavailable | + +------+ + Encounter Details +--------+ + + + + | Date | Type | Department | Care Team | Description | +--------+ + + + + | 06/22/ | Emergency | [facility] | Chung Portillo | Nondiabetic | | 2016 | | MEDICAL CENTER | DO [address] | gastroparesis | | | | EMERGENCY CENTER | [address] | | | | | [address] | [place], [place] | | | | | [place], [place] | [address] | | | | | [address] | [phone] | | | | | [phone] | | | +--------+ + + + [...] EXTERNAL | | | | performed at [facility] | K/uL | LAB | | | | [address];[place] | | | | | | [address] | | | | + + + + + + | Red Blood | 4.46Comment: Testing | 3.70 - 5.10 | EXTERNAL | | | Cells | performed at [facility];888 | M/uL | LAB | | | Counted | [address];[place] | | | | | | [address] | | | | + + + + + + | Hemoglobin | 13.9Comment: Testing | 11.3 - 15.5 | EXTERNAL | | | | performed at [facility];888 | g/dL | LAB | | | | [address];[place] | | | | | | [address] | | | | + + + + + + | Hematocrit, | 41.0Comment: Testing | 34.0 - 46.0 % | EXTERNAL | | | POC | performed at [facility];[address] | | LAB | | | | [address];[place] | | | | | | [address] | | | | + + + + + + | MCV | 91.9Comment: Testing | 80.0 - 100.0 fl | EXTERNAL | | | | performed at [facility];[address] | | LAB | | | | [address];[place] | | | | | | [address] | | | | + + + + + + | MCH | 31.1Comment: Testing | 27.0 - 34.0 pg | EXTERNAL | | | | performed at [facility];[address] | | LAB | | | | [address];[place] | | | | | | [address] | | | | + + + + + + | MCHC | 33.9Comment: Testing | 32.0 - 35.5 | EXTERNAL | | | | performed at [facility];888 | g/dL | LAB | | | | [address];[place] | | | | | | [address] | | | | + + + + + + | RDW-CV | 40.3Comment: Testing | 37 - 53 fl | EXTERNAL | | | | performed at [facility];[address] | | LAB | | | | [address];[place] | | | | | | [address] | | | | + + + + + + | Platelet | 203Comment: Testing | 150 - 400 K/uL | EXTERNAL | | | Count | performed at [facility];888 | | LAB | | | Plasma | [address];[place] | | | | | | [address] | | | | + + + + + + | MPV | 8.3Comment: Testing | fl | EXTERNAL | | | | performed at [facility];[address] | | LAB | | | | [address];[place] | | | | | | [address] | | | | + + + + + + | Differentia | AUTOMATEDComment: | | EXTERNAL | | | l Type | Testing performed at | | LAB | | | | [facility];[address] | | | [address];[place] [address] | | | | + + + + + + | % Segmented | 65.86Comment: Testing | % | EXTERNAL | | | | performed at [facility];888 | | LAB | | | Neutrophils | [address];[place] | | | | | | [address] | | | | + + + + + + | % | 25.52Comment: Testing | % | EXTERNAL | | | Lymphocytes | performed at [facility];[address] | | LAB | | | | [address];[place] | | | | | | [address] | | | | + + + + + + | % Monocytes | 6.38Comment: Testing | % | EXTERNAL | | | | performed at [facility];[address] | | LAB | | | | [address];[place] | | | | | | [address] | | | | + + + + + + | % | 1.61Comment: Testing | % | EXTERNAL | | | Eosinophils | performed at [facility];[address] | | LAB | | | | [address];[place] | | | | | | [address] | | | | + + + + + + | % Basophils | 0.63Comment: Testing | % | EXTERNAL | | | | performed at [facility];[address] | | LAB | | | | [address];[place] | | | | | | [address] | | | | + + + + + + | Absolute | 6.91Comment: Testing | 1.90 - 7.40 | EXTERNAL | | | Segmented | performed at [facility];888 | K/uL | LAB | | | Neutrophils | [address];[place] | | | | | | [address] | | | | + + + + + + | Absolute | 2.68Comment: Testing | 1.00 - 3.90 | EXTERNAL | | | Lymphocytes | performed at [facility];888 | K/uL | LAB | | | | [address];[place] | | | | | | [address] | | | | + + + + + + | Absolute | 0.67Comment: Testing | 0.00 - 0.80 | EXTERNAL | | | Monocytes | performed at [facility];888 | K/uL | LAB | | | | [address];[place] | | | | | | [address] | | | | + + + + + + | Absolute | 0.17Comment: Testing | 0.00 - 0.50 | EXTERNAL | | | Eosinophils | performed at [facility];888 | K/uL | LAB | | | | [address];[place] | | | | | | [address] | | | | + + + + + + | Absolute | 0.07Comment: Testing | 0.00 - 0.10 | EXTERNAL | | | Basophils | performed at [facility];888 | K/uL | LAB | | | | [address];[place] | | | | | | [address] | | | | + + + [...] EXTERNAL | | | | performed at [facility] | | LAB | | | | [facility] | | | | | | [address] | | | | + + + [...] EXTERNAL | | | | performed at [facility] | | LAB | | | | [address];[place], [place] | | | | | | [address] | | | | + + + [...] LAB | | | | performed at [facility];[address] | | | | | | [address];[place] | | | | | | [address] | | | | + + + [...] EXTERNAL | | | | performed at [facility];888 | | LAB | | | | [address];[place] | | | | | | [address] | | | | + + + [...] EXTERNAL | | | | performed at [facility];888 | mmol/L | LAB | | | | [address];[place] | | | | | | [address] | | | | + + + [...] EXTERNAL | | | | performed at [facility];[address] | | LAB | | | | [address];[place], [place] | | | | | | [address] | | | | + + + [...] EXTERNAL | | | | performed at [facility];888 | mmol/L | LAB | | | | [address];[place] | | | | | | [address] | | | | + + + + + + | K | 3.8Comment: Testing | 3.5 - 4.9 | EXTERNAL | | | | performed at [facility];888 | mmol/L | LAB | | | | [address];[place] | | | | | | [address] | | | | + + + + + + | Cl | 104Comment: Testing | 99 - 109 mmol/L | EXTERNAL | | | | performed at [facility];[address] | | LAB | | | | [address];[place] | | | | | | [address] | | | | + + + + + + | CO2 | 27Comment: Testing | 23 - 32 mmol/L | EXTERNAL | | | | performed at [facility];[address] | | LAB | | | | [address];[place] | | | | | | [address] | | | | + + + + + + | Anion Gap | 12Comment: Testing | 5 - 20 mmol/L | EXTERNAL | | | | performed at [facility];[address] | | LAB | | | | [address];[place] | | | | | | [address] | | | | + + + + + + | Glucose, | 80Comment: Testing | 65 - 99 mg/dL | EXTERNAL | | | Fasting | performed at [facility];[address] | | LAB | | | | [address];[place] | | | | | | [address] | | | | + + + + + + | BUN | 4 (L)Comment: Testing | 8 - 25 mg/dL | EXTERNAL | | | | performed at [facility];[address] | | LAB | | | | [address];[place] | | | | | | [address] | | | | + + + + + + | Creatinine | 0.83Comment: Testing | 0.50 - 1.00 | EXTERNAL | | | | performed at [facility];888 | mg/dL | LAB | | | | [address];[place] | | | | | | [address] | | | | + + + + + + | BUN/Creatin | 5Comment: Testing | | EXTERNAL | | | ine Ratio | performed at [facility];[address] | | LAB | | | | [address];[place] | | | | | | [address] | | | | + + + + + + | Calcium | 9.1Comment: Testing | 8.5 - 10.5 | EXTERNAL | | | | performed at [facility];888 | mg/dL | LAB | | | | [address];[place] | | | | | | [address] | | | | + + + + + + | Protein, | 7.4Comment: Testing | 6.3 - 8.2 g/dL | EXTERNAL | | | Total | performed at [facility];[address] | | LAB | | | | [address];[place] | | | | | | [address] | | | | + + + + + + | Albumin | 4.5Comment: Testing | 3.6 - 5.0 g/dL | EXTERNAL | | | | performed at [facility];[address] | | LAB | | | | [address];[place] | | | | | | [address] | | | | + + + + + + | Globulin | 3.0Comment: Testing | 1.3 - 4.9 g/dL | EXTERNAL | | | | performed at [facility];[address] | | LAB | | | | [address];[place] | | | | | | [address] | | | | + + + + + + | A/G Ratio | 1.5Comment: Testing | 1.0 - 2.4 | EXTERNAL | | | | performed at [facility];[address] | | LAB | | | | [address];[place] | | | | | | [address] | | | | + + + + + + | Bilirubin | 0.6Comment: Testing | 0.1 - 1.5 mg/dL | EXTERNAL | | | Total | performed at [facility];[address] | | LAB | | | | [address];[place] | | | | | | [address] | | | | + + + + + + | ALP, | 61Comment: Testing | 35 - 115 U/L | EXTERNAL | | | External | performed at [facility];[address] | | LAB | | | | [address];[place] | | | | | | [address] | | | | + + + + + + | AST | 7 (L)Comment: Testing | 10 - 45 U/L | EXTERNAL | | | | performed at [facility];[address] | | LAB | | | | [address];[place] | | | | | | [address] | | | | + + + + + + | ALT | 20Comment: Testing | 10 - 65 U/L | EXTERNAL | | | | performed at [facility];[address] | | LAB | | | | [address];[place] | | | | | | [address] | | | | + + + [...] | | | | | | at [facility];[address] | | | | | | [address];[place] [address] | | | | + + + [...] EXTERNAL | | | | performed at [facility];[address] | | LAB | | | | [address];[place] | | | | | | [address] | | | | + + + + + + | Clarity | CLEARComment: Testing | | EXTERNAL | | | | performed at [facility];[address] | | LAB | | | | [address];[place] | | | | | | [address] | | | | + + + + + + | Specific | 1.005Comment: Testing | 1.002 - 1.030 | EXTERNAL | | | [place], | performed at [facility];[address] | | LAB | | | Urine | [address];[place] | | | | | | [address] | | | | + + + + + + | Leukocyte | NEGATIVEComment: Testing | | EXTERNAL | | | Esterase, | performed at [facility];[address] | | LAB | | | Urine | [address];[place] | | | | | | [address] | | | | + + + + + + | Nitrite, | NEGATIVEComment: Testing | | EXTERNAL | | | Urine | performed at [facility];[address] | | LAB | | | | [address];[place] | | | | | | [address] | | | | + + + + + + | Urobilinoge | NORMALComment: Testing | mg/dL | EXTERNAL | | | n, Urine | performed at [facility];[address] | | LAB | | | | [address];[place] | | | | | | [address] | | | | + + + + + + | Protein, | NEGATIVEComment: Testing | mg/dL | EXTERNAL | | | Urine | performed at [facility];[address] | | LAB | | | | [address];[place] | | | | | | [address] | | | | + + + + + + | pH, Urine | 7.0Comment: Testing | 5.0 - 8.0 | EXTERNAL | | | | performed at [facility];[address] | | LAB | | | | [address];[place] | | | | | | [address] | | | | + + + + + + | Blood, | NEGATIVEComment: Testing | | EXTERNAL | | | Urine | performed at [facility];[address] | | LAB | | | | [address];[place] | | | | | | [address] | | | | + + + + + + | Ketones | NEGATIVEComment: Testing | mg/dL | EXTERNAL | | | | performed at [facility];[address] | | LAB | | | | [address];[place] | | | | | | [address] | | | | + + + + + + | Bilirubin, | NEGATIVEComment: Testing | | EXTERNAL | | | Urine | performed at [facility];[address] | | LAB | | | | [address];[place] | | | | | | [address] | | | | + + + + + + | Glucose, | NEGATIVEComment: Testing | mg/dL | EXTERNAL | | | Urine | performed at [facility];[address] | | LAB | | | | [address];[place], [place] | | | | | | [address] | | | | + + + [...] | | | Ur | performed at [facility] | | LAB | | | | [address];[place], [place] | | | | | | [address] | | | | + + + [...]
--- OUTSIDE RECORDS SUMMARY | ~2020-03-09 | XMS | Encounter Summary ---
[...] Team Providers + +------+ + | Care Air Bag Builder Name | Role | Phone | + +------+ + | Justo Vazquez MD | PCP | | + +------+ + Encounter Details +--------+ + + + + | Date | Type | Department | Care Team | Description | +--------+ + + + + | 08/30/ | Documentati | Pain Center at [facility] | Jamel Madden, | | | 2018 | on | [address] | PhD [address] | | | | | [place] [facility] | [facility] [place] | | | | | and [facility] | [address] | | | | | , 15 Floor | [phone] | | | | | [place], [place] | | | | | | [address] | | | | | | [phone] | | | +--------+ + + + [...]
--- OUTSIDE RECORDS SUMMARY | ~2020-03-09 | XMS | Encounter Summary ---
Demographics + + + | Address | [address] | | | [place] [address] | + + + | Home Phone [...] Providers + +------+ + | Care Supervisor Fireworks Assembly Name | Role | Phone | + [...] + | 08/07/ | Refill | [facility] Comprehensive | Alex Sanchez, | Refill Request | | 2018 | | Pain Center at | ,PhD [address] | | | | | [facility] | [address] | | | | | [address] | [place], [place] | | | | | [facility] | [address] | | | | | and [facility] | [phone] | | | | | Floor | | | | | | [place], [place] | | | | | | [address] | | | | | | [phone] | | | +--------+--------+ + + + [...]
--- OUTSIDE RECORDS SUMMARY | ~2020-03-09 | XMS | Encounter Summary ---
Demographics + + + | Address | [address] | | | [place] [address] | + + + | Home Phone [...] Providers + +------+ + | Care Traffic Analyst Name | Role | Phone | [...] | | | | | extremity | [address] | [address] | | | | | Procedures | Phone: | Phone: | | | | | REQUEST TO | [phone] | [phone] | | | | | SURGERY | Fax: | Fax: | | | | | STEWARDING SUPERVISOR | [phone] | [phone] | +--------+---------+ + + + + Encounter Details +--------+---------+ + + + | Date | Type | Department | Care Team | Description | +--------+---------+ + + + | 12/22/ | Office | [facility] Comprehensive | Ilene Bright, | Complex regional | | 2019 | Visit | Pain Center at | TICKET SCHEDULER [address] | pain syndrome type 1 | | | | [facility] | [address] [facility] [place] | of left lower | | | | [address] | [address] | extremity; S/P | | | | [facility] | [phone] | insertion of spinal | | | | and Healing Building | | cord stimulator | | | | 1,15th Floor | | | | | | [place], [place] | | | | | | [address] | | | | | | [phone] | | | +--------+---------+ + + + [...] your reference. - The [place] sales representative jewelry met with you and made adjustments to your stimulator. I spoke w ith the sales representative jewelry and she is happy with your progress [...] call this [facility] into the [facility] in [place]. It was great to see you again, documented in this encounter Progress Notes Ilene Bright, TICKET SCHEDULER - 12/22/2018 11:00 AM PSTFormatting of this note might be different fr om the original. [facility] Return Visit Date: 12/22/2018 Chief Complaint Patient presents with Low back pain Pain in left leg History of Present Illness: Tracie Farah is a 28 year old female, whose last appoi ntment at the [facility] was 12/07/2018 following her [...] order to tolerate her incision site pain. FRONT DESK HOST Brief Pain Inventory: (ten= worst possible pain [...] History Social History Narrative Single. Goes to [employer] with a light load. Has been working at [employer], can' t work on [employer]. Has roommates. Allergies Allergen Reactions Morphine Anaphylaxis [...] (source: [facility], [facility] Everywhere), [...] her surgical incision. The [employer] sales representative jewelry visited the patient in order to make [...] ed by Collin Salomon. Ilene Childs DNP, TICKET SCHEDULER-C [facility] [address] [place] [address] mCharline robertson MA - 12/22/2018 11:00 AM [...]
--- OUTSIDE RECORDS SUMMARY | ~2020-03-09 | XMS | Encounter Summary ---
Demographics + + + | Address | [address] | | | [place] [address] | + + + | Home Phone [...] Team Providers + +------+ + | Care Clip Loading Machine Adjuster Name | Role | Phone [...] Closed | | Orthopedics | Diagnoses | Andrew, | [facility] | | | | | Adjustment | Ranjeet Odom MD | [address] | | | | | disorder, | [address] | | | | | unspecified | [address] | Center for | | | | | type | [facility] [place] | Health and | | | | | Procedures | [address] | Healing, | | | | | CONSULT TO | Phone: | Building 1, | | | | | BEHAVIORAL | [phone] | 12th floor | | | | | HEALTH/PSYCH | Fax: | [place], [place] | | | | | IATRY - | [phone] | [address] | | | | | ADULT | | Phone: | | | | | | | [phone] | | | | | | | Fax: | | | | | | | [phone] | +--------+--------+ + + + + Reason [...] | | syndrome | [address] | [place], [place] | | | | | type 1 of | Rd | [address] | | | | | left lower | [place], [place] | Phone: | | | | | extremity | [address] | [phone] | | | | | Procedures | Phone: | Fax: | | | | | CONSULT TO | [phone] | [phone] | | | | | ORTHOPEDICS | Fax: | | | | | | AND | [phone] | | | | | | REHABILITATI [...] | 2018 | Visit | [facility] [place] | MD [address] | (Primary Dx); Left | | | | for Health and | [place], [place] | ankle pain, | | | | Healing [address] | [address] | unspecified | | | | [address] [facility] for | [phone] | chronicity; | | | | Health and Healing, | | Adjustment disorder, | | | | Building | | unspecified type | | | | floor [place], [place] | | | | | | [address] | | | | | | [phone] | | | +--------+---------+ + + + [...] by physician. Concentration is 150mg/mL. Compounded by [employer] ([phone]) levonorgestrel (MIRENA) 20 mcg/24 hr Intrauterine IUD [...] oral recon soln Take as directed by [facility] [employer] [facility]- 2 gallon bowel prep polyethylene glycol [...] the [facility] and personally formulated the plan with [...] become. f/u open ended Ranjeet Amanda M.D. Kitchen Food Assembler Foot and Ankle Surgery Department of Orthopedics & Rehabilitation [facility] [phone] >60 mins face to face consultation was [...]
--- OUTSIDE RECORDS SUMMARY | ~2020-03-09 | XMS | Encounter Summary ---
Demographics + + + | Address | [address] | | | [place] [address] | + + + | Home Phone [...] Providers + +------+ + | Care Sheet Metal Pattern Cutter Name | Role | Phone | [...] | | syndrome | [place] | [facility] | | | | | type 1 of | Rd | Rd [place], | | | | | left lower | [place], [place] | [place] | | | | | extremity | [address] | [address] | | | | | Procedures | Phone: | Phone: | | | | | REQUEST TO | [phone] | [phone] | | | | | SURGERY | Fax: | Fax: | | | | | SUPERVISOR LOGGING | [phone] | [phone] | +--------+---------+ + + + + Encounter Details +--------+---------+ + + + | Date | Type | Department | Care Team | Description | +--------+---------+ + + + | 12/07/ | Office | [facility] Comprehensive | Eulogio, | Complex regional | | 2019 | Visit | Pain Center at | MD Irene [address] | pain syndrome type 1 | | | | [facility] | [address] [place], | of left lower | | | | [address] | [place] [address] | extremity (Primary | | | | [facility] | [phone] | Dx); S/P insertion | | | | and Healing Building | | of spinal cord | | | | 1,15th Floor | | stimulator | | | | [place], [place] | | | | | | [address] | | | | | | [phone] | | | +--------+---------+ + + + [...] Lujan MD - 12/07/2018 9:[address] [facility] Return Visit Date: 12/07/2018 Chief Complaint Patient presents with Back pain Pain in left leg History of Present Illness: Tracie Farah is a 28 year old female, whose last appoi ntment at the [facility] was December 05, [...] her 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 GRAPHIC MANAGER Brief Pain Inventory: (ten= worst possible [...] History Social History Narrative Single. Goes to [employer] with a light load. Has been working at [employer], can' t work on [employer]. Has roommates. Allergies Allergen Reactions Morphine Anaphylaxis [...] and summary of old medical records (source: [facility]), as summarized in the body of the [...] present for the encounter. Irene Krishnan MD [facility] [place] [id number] [facility] [place] [facility], 4th Floor Mail Code: [address] [phone] documented in thi s encounter Plan of Treatment Not on filedocumented as of this encounter Visit Diagnoses + + | Diagnosis | + + | Complex regional pain syndrome type 1 of left lower extremity - Primary | + + | S/P insertion of spinal cord stimulator | + + documented in this encounter
--- OUTSIDE RECORDS SUMMARY | ~2020-03-09 | XMS | Encounter Summary ---
Demographics + + + | Address | [address] | | | [place] [address] | + + + | Home Phone [...] Providers + +------+ + | Care Digital Solutions Architect Name | Role | Phone | + +------+ + | Jsuto Vazquez MD | PCP | | + +------+ + Encounter Details +--------+ + + + + | Date | Type | Department | Care Team | Description | +--------+ + + + + | 05/18/ | Telephone | [facility] | Alex Sanchez, | | | 2019 | | Pain Center at | ,PhD [address] | | | | | [facility] | [address] | | | | | [address] | [place], [place] | | | | | [place] [facility] | [address] | | | | | and [facility] | [phone] | | | | | 1,15th Floor | | | | | | [place], [place] | | | | | | [address] | | | | | | [phone] | | | +--------+ + + + [...]
--- OUTSIDE RECORDS SUMMARY | ~2020-03-09 | XMS | Encounter Summary ---
Demographics + + + | Address | [address] | | | [place] [address] | + + + | Home Phone [...] Providers + +------+ + | Care Facility Sales And Admin Name | Role | Phone | + +------+ + | Justo Vazquez MD | PCP | | + +------+ + Encounter Details +--------+ + + + + | Date | Type | Department | Care Team | Description | +--------+ + + + + | 09/20/ | Telephone | [facility] | Ilene Bright, | | | 2017 | | [facility] at | [employer] [address] | | | | | [facility] | [address] [place], [place] | | | | | [address] | [address] | | | | | [place] for [facility] | [phone] | | | | | and [facility] | | | | | | [address] | | | | | | [place], [place] | | | | | | [address] | | | | | | [phone] | | | +--------+ + + + [...]
--- OUTSIDE RECORDS SUMMARY | ~2020-03-09 | XMS | Encounter Summary ---
Demographics + + + | Address | [address] | | | [place] [address] | + + + | Home Phone [...] Providers + +------+ + | Care Configuration Manager Name | Role | Phone | + +------+ + | Justo Vazquez MD | PCP | | + +------+ + Encounter Details +--------+ + + + + | Date | Type | Department | Care Team | Description | +--------+ + + + + | 07/30/ | Telephone | [facility] | Alex Sanchez, | | | 2019 | | Pain Center at | ,PhD [address] | | | | | [facility] | [address] | | | | | [address] | [place], [place] | | | | | [place] for [facility] | [address] | | | | | and [facility] | [phone] | | | | | 1,15th Floor | | | | | | [place], [place] | | | | | | [address] | | | | | | [phone] | | | +--------+ + + + [...]
--- OUTSIDE RECORDS SUMMARY | ~2020-03-09 | XMS | Encounter Summary ---
Demographics + + + | Address | [address] | | | [place] [address] | + + + | Home Phone [...] Team Providers + +------+ + | Care Bleacher Sulfite Pulp Name | Role | Phone | + [...] – [place] | | | | | [facility] | [id number] | | | | | [address] | [place], [place] | | | | | [place] [facility] | [address] | | | | | and Healing Building | [phone] | | | | | Floor | | | | | | [place], [place] | | | | | | [address] | | | | | | [phone] | | | +--------+ + + + [...]
--- OUTSIDE RECORDS SUMMARY | ~2020-03-09 | XMS | Encounter Summary ---
Demographics + + + | Address | [address] | | | [place] [address] | + + + | Home Phone [...] Providers + +------+ + | Care Patient Care Technician Instructor Name | Role | Phone | [...] | Diagnoses | Beulah | Edu Pt Esthetics Instructor | | | | Therapy | CRPS | Janak Martinez MD | [address] | | | | | (complex | [address] | | | | | regional | [address] | Mailcode: | | | | | pain | Mailstop | [facility] | | | | | syndrome), | [phone] | for Health | | | | | lower limb | [place], [place] | and Healing, | | | | | Gait | [address] | Building 1 | | | | | disturbance | Phone: | [place], [place] | | | | | Muscle pain | [phone] | [address] | | | | | Procedures | Fax: | Phone: | | | | | PHYSICAL | [phone] | [phone] | | | | | THERAPY | [...] | | | [address] | Ave [place], [place] | syndrome), lower | | | | [address] | [phone] | limb (Primary Dx) | | | | [place] for [facility] | | | | | | and Healing, | | | | | | Building 1, | | | | | | Floor [place], [place] | | | | | | [address] | | | | | | [phone] | | | +--------+---------+ + + + [...] might be different f rom the original. [id number] BRODY FARAH Date of : 1990 Start of care: 02/14/2012 Date of onset: 02/14/2012 Referring/Attending Practitioner: Janak Riojas MD . Primary/Referral Diagnosis/ICD-9: 355.71B CRPS (complex regional pain syndrome), lower limb Insurance: Payor: [facility] Plan: BCBS OUT OF STATE Product Type: PP O Service period from: 02/14/2012 to: 08/12/2012 Number visits used/authorized: 12/26 [facility] PHYSICAL THERAPY PROGRESS NOTE SUBJECTIVE: Age: 21 y.o. Sex: female Chief complaint: No chief complaint on file. 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 She is doing much better ov [facility], possibly because she finished school and so has less stress. She stopped using crutch es in early April (18 days ago) which is less stressful. Now she is working at [employer] 2-3 hours per week, and spends a [...] pain meds. Social History: lives in [facility], 22 years old, not [...] concerns about therapy: she lives in [facility]. She is r equesting [...] change in their status. Guillermo Sanon MSPBren [facility] Outpatient Rehabilitation Services Mailcode: Ch3p [address] [facility], 1st Floor [facility] [address] documented in this encounter Plan of Treatment Not on filedocumented as of this encounter Procedures + +--------+ + + + | Procedure Name | Priori | Date/Time | Associated Diagnosis | Comments | | | ty | | | | + +--------+ + + + | [place] THERAPEUTIC | Routin | 05/03/2012 | CRPS [...]
--- OUTSIDE RECORDS SUMMARY | ~2020-03-09 | XMS | Encounter Summary ---
Demographics + + + | Address | [address] | | | [place] [address] | + + + | Home Phone [...] + + | 02/21/ | Telephone | [facility] | Alex Sanchez, | Medication Refill | | 2018 | | Pain Center at | ,PhD [address] | Request (ketamine- | | | | [facility] | [address] | mail script to | | | | [address] | [place], [place] | patient) | | | | [facility] | [address] | | | | | and [facility] | [phone] | | | | | Floor | | | | | | [place], [place] | | | | | | [address] | | | | | | [phone] | | | +--------+ + + + [...]
--- OUTSIDE RECORDS SUMMARY | ~2020-03-09 | XMS | Encounter Summary ---
Demographics + + + | Address | [address] | | | [place] [address] | + + + | Home Phone [...] Team Providers + +------+ + | Care Light Rail Signal Technician Name | Role | Phone | [...] Pain Center at | MD [address] | | | | | [facility] | [facility] 686354 | | | | | [address] | [place], [place] | | | | | [place] for [facility] | [address] | | | | | and [facility] | [phone] | | | | | Floor | | | | | | [place], [place] | | | | | | [address] | | | | | | [phone] | | | +--------+ + + + [...]
--- OUTSIDE RECORDS SUMMARY | ~2020-03-09 | XMS | Encounter Summary ---
Demographics + + + | Address | [address] | | | [place] [address] | + + + | Home Phone [...] Team Providers + +------+ + | Care Extract Operator Name | Role | Phone | [...] Vomiting; | | 2016 | | Center [place] [address] [address] | | Constipation; | | | | [address] | | Abdominal pain | | | | for Health and | | | | | | Healing, Building 2 | | | | | | [place], [place] | | | | | | [address] | | | | | | [phone] | | | +--------+ + + + [...]
--- OUTSIDE RECORDS SUMMARY | ~2020-03-09 | XMS | Encounter Summary ---
Demographics + + + | Address | [address] | | | [place] [address] | + + + | Home Phone [...] Team Providers + +------+ + | Care Strip Mill Operator Name | Role | Phone [...] | Diagnoses | [place]ulah | Edu Pt Butt Sawyer | | | | Therapy | CRPS | Janak Martinez MD | [address] | | | | | (complex | [address] | | | | | regional | [address] | Mailcode: | | | | | pain | Mailstop | [facility] | | | | | syndrome), | [phone] | for Health | | | | | lower limb | [place], [place] | and Healing, | | | | | Gait | [address] | Building 1 | | | | | disturbance | Phone: | [place], [place] | | | | | Muscle pain | [phone] | [address] | | | | | Procedures | Fax: | Phone: | | | | | PHYSICAL | [phone] | [phone] | | | | | THERAPY | [...] | | | [address] | Ave [place], [place] | syndrome), lower | | | | [address] | [phone] | limb (Primary Dx) | | | | [place] for [facility] | | | | | | and Healing, | | | | | | Building 1, | | | | | | Floor [place], [place] | | | | | | [address] | | | | | | [phone] | | | +--------+---------+ + + + [...] might be different f rom the original. [id number] BRODY FARAH Date of : 1990 Start of care: 02/14/2012 Date of onset: 02/14/2012 Referring/Attending Practitioner: Janak Riojas MD . Primary/Referral Diagnosis/ICD-9: 355.71B CRPS (complex regional pain syndrome), lower limb Insurance: Payor: [facility] [employer] [facility] Plan: BCBS OUT OF STATE Product Type: PP O Service period from: 02/14/2012 to: 08/12/2012 Number visits used/authorized: 11/25 [facility] PHYSICAL THERAPY INITIAL EVALUATION SUBJECTIVE: Age: 21 [...] no pain relief. Admitted to the inpatient [facility] program for 1 month in [...] Diagnostic evaluation: Records from CRPS program at [facility]. Suggest three phase bone sca n. [...] employed by the psychologists here at the [facility]. 2.2 Physical therapy can reduce pain and improve functional status. Suggest Guillermo Sanon. 3. Medication suggestions: 3.1 Continue titrating up duloxetine. 3.2 As for any patient being managed with chronic opioids, we do recommend that the patient have a signed [facility] Material Risk Notice, agree to whatever [...] hemr oidectomy. Social History: lives in [facility], 22 years old, not working currently, [...] concerns about therapy: she lives in [facility]. She is r equesting family members [...] provided with a token and bocanegra for [facility] site. Treatment began: 1345hrs Treatment ended: 1430hrs Manual therapy: 0min Therapeutic exercise: 15 min ASSESSMENT: pt presents with 10-year history of ankle pain post trauma and multiple surgeri es. She thinks she developed CRPS in 2004. She was diagnosed with CRPS and spent a month in the program at [facility] working through aggressive desensitization and activation which prov ided no lasting benefit. She lives in [facility], is going to school, and ambulates [...] She can work with her PT in [facility]. CLINICAL PRIORITIES: 1-follow up with Dr [...] in their status. Guillermo Sanon MSPT [facility] Outpatient Rehabilitation Services Mailcode: Ch3p [address] [facility], 1st [facility] [address] documented in this encounter Plan of Treatment Not on filedocumented as of this encounter Procedures + +--------+ + + + | Procedure Name | Priori | Date/Time | Associated Diagnosis | Comments | | | ty | | | | + +--------+ + + + | [place] THERAPEUTIC | Routin | 02/16/2012 | CRPS (complex | | | EXERCISES | e | 3:34 PM | regional pain | | | | | PDT | syndrome), lower | | | | | | limb | | + +--------+ + + + | [place] PHYS THERAPY | Routin | 02/16/2012 | [...]
--- OUTSIDE RECORDS SUMMARY | ~2020-03-09 | XMS | Encounter Summary ---
Demographics + + + | Address | [address] | | | [place] [address] | + + + | Home Phone [...] Team Providers + +------+ + | Care Assurance Analyst Name | Role | Phone | [...] | (ortho question) | | | | [facility] | [facility] | | | | | [address] | [place], [place] | | | | | [facility] | [address] | | | | | and Healing Building | [phone] | | | | | 1,15th Floor | | | | | | [place], [place] | | | | | | [address] | | | | | | [phone] | | | +--------+ + + + [...]
--- OUTSIDE RECORDS SUMMARY | ~2020-03-09 | XMS | Encounter Summary ---
Demographics + + + | Address | [address] | | | [place] [address] | + + + | Home Phone [...] | Orthopedics | Diagnoses | Sdrulla, | [place], | | | | | Complex | Alex Alba, | Ranjeet Odom MD | | | | | regional | ,PhD [address] | [address] | | | | | pain | [address] | Ave | | | | | syndrome | [address] | [place], [place] | | | | | type 1 of | Rd | [address] | | | | | left lower | [place], [place] | Phone: | | | | | extremity | [address] | [phone] | | | | | Procedures | Phone: | Fax: | | | | | CONSULT TO | [phone] | [phone] | | | | | ORTHOPEDICS | Fax: | | | | | | AND | [phone] | | | | | | REHABILITATI [...] | ankle results) | | | | [facility] | [facility] [address] | | | | | [address] | [place], [place] | | | | | [facility] | [address] | | | | | and Healing Building | [phone] | | | | | ,15th Floor | | | | | | [place], [place] | | | | | | [address] | | | | | | [phone] | | | +--------+ + + + [...]
--- OUTSIDE RECORDS SUMMARY | ~2020-03-09 | XMS | Encounter Summary ---
Demographics + + + | Address | [address] | | | [place] [address] | + + + | Home Phone [...] Team Providers + +------+ + | Care Tube Buffer Name | Role | Phone | [...] + | 12/05/ | Hospital | [facility] | Alex Sanchez, | | | 2019 | Encounter | STAY [address] | ,PhD [address] | | | | | [place] Mailcode: [facility] | [address] | | | | | [facility] | [place], [place] | | | | | Health and [facility], | [address] | | | | | [place] [address] | [phone] | | | | | [place], [place] | | | | | | [address] | | | | | | [phone] | | | +--------+ + + + [...] s/p successful DRG trial lead system with [employer] on 09/25/2018. No changes in H&P, [...] HOSPITAL [place] | | | Tracie Farah [id number] :1990, presents to clinic | | | for: Dorsal root ganglion stimulator implant PROCEDURE: Dorsal | | | root ganglion stimulator implant PRE-OPERATIVE DIAGNOSIS: Complex | | | regional Pain syndrome type 1 of left lower extremity | | | POST-OPERATIVE DIAGNOSIS: Complex regional Pain syndrome type 1 of | | | left lower extremity ATTENDING PHYSICIAN: Alex Sanchez | | | AGENCY MANAGER: Arben Valerio MD ANESTHESIA: sedation by IVIS Cole | | | Carmen, supervised by tombstone erector Ilir Valdes. | | | FINDINGS: Appropriate [...] to the | | | [facility] [employer] small business sales representative. A test stimulation was performed [...] recovery. Images were saved, and sent to [employer]. | | | Alex Sanchez (attending) was present for the entire procedure. | | | Arben Valerio MD I was present for the entire procedure | | | (spinal cord stimulator implantation with DRG leads at left L4 and | | | L5) and all bocanegra elements of this visit. I reviewed the | | | documentation of the other INDEPENDENT CONTRACTOR providers and concur with Dr. | | | Iman's findings. I edited his note. Alex Sanchez, | | | ,PhD Sheet Music Salesperson Anesthesiology and Pain Management | | | [facility] [place] [facility] | | + + + [...] + + | JOSE ANTONIO MIN | [address] | [place] [address] | | | OF CARE TESTS | [...]
--- OUTSIDE RECORDS SUMMARY | ~2020-03-09 | XMS | Encounter Summary ---
Demographics + + + | Address | [address] | | | [place] [address] | + + + | Home Phone [...] Team Providers + +------+ + | Care Conceptor Name | Role | Phone | + [...] | Alex Alba, | [facility] [address] | | | | | regional | ,PhD [address] | Pavilion | | | | | pain | [address] | [address] | | | | | syndrome | [address] | [address], | | | | | type 1 of | Rd | Basement | | | | | left lower | [place], [place] | [place], [place] | | | | | extremity | [address] | [address] | | | | | Muscle pain | Phone: | Phone: | | | | | Procedures | [phone] | [phone] | | | | | [place] BONE | Fax: | Fax: | | | | | &/OR JOINT | [phone] | [phone] | | | | | IMAGING | [...] | | | | | | [place] BONE | | | | | | | IMAGING, | | | | | | | LIMITED AREA | | | | | | | [place] BONE | | | | | | [...] | | 2018 | Encounter | at [facility] [address] | ,PhD [address] | | | | | [address] | [address] | | | | | [address], | [place], [place] | | | | | [facility], | [address] | | | | | [place] [address] | [phone] | | | | | [phone] | | | +--------+ + + + [...]
--- OUTSIDE RECORDS SUMMARY | ~2020-03-09 | XMS | Encounter Summary ---
Demographics + + + | Address | [address] | | | [place] [address] | + + + | Home Phone [...] Providers + +------+ + | Care Dispatcher Service Chief Name | Role | Phone | [...] Medical Records | | 2017 | | [place] [facility] [address] | | Review | | | | [facility] | | | | | | for Health and | | | | | | [facility], [facility] 2 | | | | | | [place], [place] | | | | | | [address] | | | | | | [phone] | | | +--------+ + + + [...]
--- OUTSIDE RECORDS SUMMARY | ~2020-03-09 | XMS | Encounter Summary ---
Demographics + + + | Address | [address] | | | [place] [address] | + + + | Home Phone [...] Team Providers + +------+ + | Care Phthalic Acid Purifier Name | Role | Phone | + +------+ + | Justo Vazquez MD | PCP | | + +------+ + Encounter Details +--------+ + + + + | Date | Type | Department | Care Team | Description | +--------+ + + + + | 12/07/ | Pharmacy | [facility] | | | | 2019 | Visit | & Healing Pharmacy | | | | | | [address] | | | | | | Mailcode: [place] | | | | | | [facility] and | | | | | | Healing, Building 1 | | | | | | [place], [place] | | | | | | [address] | | | | | | [phone] | | | +--------+ + + + [...]
--- OUTSIDE RECORDS SUMMARY | ~2020-03-09 | XMS | Encounter Summary ---
Demographics + + + | Address | [address] | | | [place] [address] | + + + | Home Phone [...] Team Providers + +------+ + | Care Bark Scaler Name | Role | Phone | + [...] Vomiting; | | 2016 | | Center [place] [address] | | Constipation; | | | | [address] | | Abdominal pain | | | | for Health and | | | | | | Healing, Building 2 | | | | | | [place], [place] | | | | | | [address] | | | | | | [phone] | | | +--------+ + + + [...]
--- OUTSIDE RECORDS SUMMARY | ~2020-03-09 | XMS | Encounter Summary ---
Demographics + + + | Address | [address] | | | [place] [address] | + + + | Home Phone [...] Team Providers + +------+ + | Care Zigzag Tunnel Elastic Operator Name | Role | Phone | [...] + + | 09/14/ | Telephone | [facility] [place] | Alex Sanchez, | Education procedure | | 2018 | | Pain Center at | ,PhD [address] | (preprocedure | | | | [facility] | [address] | education SCS) | | | | [address] | [place], [place] | | | | | [facility] | [address] | | | | | and [facility] Building | [phone] | | | | | Floor | | | | | | [place], [place] | | | | | | [address] | | | | | | [phone] | | | +--------+ + + + [...]
--- OUTSIDE RECORDS SUMMARY | ~2020-03-09 | XMS | Encounter Summary ---
Demographics + + + | Address | [address] | | | [place] [address] | + + + | Home Phone [...] Team Providers + +------+ + | Care Pathology Laboratory Aide Name | Role | Phone | + +------+ + | Justo Vazquez MD | PCP | | + +------+ + Encounter Details +--------+ + + + + | Date | Type | Department | Care Team | Description | +--------+ + + + + | 04/23/ | Pharmacy | [facility] | | | | 2019 | Visit | & Healing Pharmacy | | | | | | [address] | | | | | | Mailcode: [place] | | | | | | [facility] Health and | | | | | | Healing, Building 1 | | | | | | [place], [place] | | | | | | [address] | | | | | | [phone] | | | +--------+ + + + [...]
--- OUTSIDE RECORDS SUMMARY | ~2020-03-09 | XMS | Encounter Summary ---
Demographics + + + | Address | [address] | | | [place] [address] | + + + | Home Phone [...] Providers + +------+ + | Care Wool Fleece Sorter Name | Role | Phone | + +------+ + | Justo Vazquez MD | PCP | | + +------+ + Encounter Details +--------+ + + + + | Date | Type | Department | Care Team | Description | +--------+ + + + + | 12/28/ | Court Recorder | [facility] Comprehensive | Alex Sanchez, | Arthralgia of lower | | 2018 | | Pain Center at | ,PhD [address] | leg, unspecified | | | | [facility] | [address] | laterality (Primary | | | | [address] | [place], [place] | Dx) | | | | Center for Health | [address] | | | | | and [facility] Building | [phone] | | | | | 15th Floor | | | | | | [place], [place] | | | | | | [address] | | | | | | [phone] | | | +--------+ + + + [...]
--- OUTSIDE RECORDS SUMMARY | ~2020-03-09 | XMS | Encounter Summary ---
Demographics + + + | Address | [address] | | | [place] [address] | + + + | Home Phone [...] Team Providers + +------+ + | Care Sewage Reticulation Drafting Officer Name | Role | Phone | [...] + + | 09/14/ | Telephone | [facility] Ilene | Alex Sanchez, | Education procedure | | 2018 | | Pain Center at | ,PhD [address] | (preprocedure | | | | [facility] | [address] | education SCS) | | | | [address] | [place], [place] | | | | | [facility] | [address] | | | | | and [facility] Building | [phone] | | | | | Floor | | | | | | [place], [place] | | | | | | [address] | | | | | | [phone] | | | +--------+ + + + [...]
--- OUTSIDE RECORDS SUMMARY | ~2020-03-09 | XMS | Encounter Summary ---
Demographics + + + | Address | [address] | | | [place] [address] | + + + | Home Phone [...] Team Providers + +------+ + | Care Mixing Supervisor Name | Role | Phone | [...] | MD 1956 [facility] | evaluation (No | | | | [facility] | [facility] [id number] | evidence of drug | | | | [address] | [place], [place] | abuse) | | | | [facility] | [address] | | | | | and Healing Building | [phone] | | | | | Floor | | | | | | [place], [place] | | | | | | [address] | | | | | | [phone] | | | +--------+ + + + [...]
--- OUTSIDE RECORDS SUMMARY | ~2020-03-09 | XMS | Encounter Summary ---
Demographics + + + | Address | [address] | | | [place] [address] | + + + | Home Phone [...] Providers + +------+ + | Care Human Service Coordinator Name | Role | Phone [...] | | | | | syndrome | [place] | [facility] | | | | | type 1 of | Rd | Rd [place], | | | | | left lower | [place], [place] | [place] | | | | | extremity | [address] | [address] | | | | | Procedures | Phone: | Phone: | | | | | REQUEST TO | [phone] | [phone] | | | | | SURGERY | Fax: | Fax: | | | | | STATE PATROL OFFICER | [phone] | [phone] | +--------+---------+ + + + + Encounter Details +--------+ + + + + | Date | Type | Department | Care Team | Description | +--------+ + + + + | 12/ | Procedure | Pain Center at [facility] | Alex Sanchez, | Foot pain; Knee | | 2018 | | [address] | ,PhD [address] | pain; Procedure | | | | [facility] | [facility] | | | | | and Healing Building | [place], [place] | | | | | Floor | [address] | | | | | [place], [place] | [phone] | | | | | [address] | | | | | | [phone] | | | +--------+ + + + [...] Yesi Sonia - 09/25/2018 1:00 PM PST [facility] Patient Instructions - Post Interventional Procedure Date: 09/25/2018 Name: Tracie Farah Date of : 1990 Procedure Performed: SCS DRG TRIAL LUMBAR [facility] Procedure Provider: Alex Sanchez MD,PhD If you have any problems you believe are associated with your procedure tonight, Please call the Hospital Detention Sergeant, and ask for the Pain Management Consu ltant. If you have problems or questions between 9:00 am and 4:00 pm, Please call the [facility] [place] Nurse Triage Line, . If you go [...] symptoms, dressing, SCS function, or chills. During CRUSHER MACHINE OPERATOR open ho urs, call the [facility] ([phone]), after hours call the sheeter operator at [facility] ([phone]) and ask for the Adult Pain Service english division chair. Identify yourself as a Comprehensive [facility] Center [...] to the pat ient. Aleta Rebollar MD [facility] Comprehensive Pain Center Lvqognqurgrmhi signed by Sonia Key at 09/25/2018 3:07 PM PST documented in this encounter Progress Notes Alex Sanchez MD,PhD - 09/25/2018 1:00 PM PSTI was present for the entire procedure ( DRG SCS trial) and all bocanegra elements of this visit. I reviewed the documentation of the othe r [facility] providers and concur with Dr. Rebollar's findings. I edited his note. Alex Sanchez MD,PhD Screen Print Operator Anesthesiology and Pain Management [facility] [place] oZain flaherty RN - 09/25/2018 1:00 PM [...] by physician. Concentration is 150mg/mL. Compounded by [employer] ( [phone]) KETOROLAC IM Inject into the muscle (IM). [...] SOLUTION Take as directed by [facility] Digestive [facility]- 2 gallon bowel prep [...] PRE-SEDATION: Date: September 25, 2018 Tracie Farah [id number] 1990 ALLERGIES: Morphine Previous reaction to Sedation/Analgesia: [...] 25, 2018 Tracie Donaldson [facility] [id number] 1990 ALLERGIES: Morphine Previous reaction to Sedation/Analgesia: [...] Flow Sheet. Tracie Donaldson [facility] [id number] 1990, presents to clinic for: Procedure: bilateral [...] OPERATIVE NOTE Date: September 25, 2018 Location: [facility] Procedure Room Tracie Donaldson [facility] [id number] :1990, presents to clinic for: PROCEDURE: DRG Spinal Cord Stimuation Trial with [facility]. [employer] system LEVEL/LATERALITY: left L4, L5 PRE-OPERATIVE DIAGNOSIS: G90.522 Complex regional pain syndrome type 1 of left lower extremity POST-OPERATIVE DIAGNOSIS: G90.522 Complex regional pain syndrome type 1 of left lower extremity ATTENDING PHYSICIAN: Alex Sanchez MD,PhD FIRE CREW WORKER: Fellow Aleta Rebollar ANESTHESIA: Sedation delivered by [...] sedation. Ms. Farah was escorted to the [facility] Procedure R oom, where she was [...] Ms. Farah was transported to the [facility] [place] post-procedure recovery area where she made an uneventful recovery. Programming was performed in the PACU with aid of the device in store representative and Ms. Susie faust was sent home with a few programs . This was a unilateral procedure. Alex Sanchez MD,PhD was present for the entire procedure. Images were saved, and sent to [email or web address]. Ms. Farah was transported to the [facility] post-procedure recovery area. She had an uneventful recovery. Before the procedure, Ms. Farah's pain was 7/10. After the procedure Ms. Farah's pain was 7/10. I, Sonia Key, am functioning as a scribe for Aleta Rebollar MD. I have reviewed and verified the above scribed note of my visit with this patient as record ed by Sonia Key. Aleta Rebollar MD [facility] 15TH F[address] [facility] Mail Code: 15[address] [place] [address] documented in t his encounter [...]
--- OUTSIDE RECORDS SUMMARY | ~2020-03-09 | XMS | Encounter Summary ---
Demographics + + + | Address | [address] | | | [place] [address] | + + + | Home Phone [...] Team Providers + +------+ + | Care Pewter Caster Name | Role | Phone | [...] | | | | | David [address] | | | | | | [address] | | | | | | [place] C[place], | | | | | | [address] [place] [address], | | | | | | [place] [address] | | | | | | [phone] | | | +--------+ + + + [...]
--- OUTSIDE RECORDS SUMMARY | ~2020-03-09 | XMS | Encounter Summary ---
Demographics + + + | Address | [address] | | | [place] [address] | + + + | Home Phone [...] Team Providers + +------+ + | Care Journeyman Pipe Welder Name | Role | Phone | + [...] + + | 01/11/ | Telephone | [facility] | Alex Sanchez, | Referral To | | 2018 | | Pain Center at | ,PhD [address] | Orthopedics (discuss | | | | [facility] | [address] | ortho appointment) | | | | [address] | [place], [place] | | | | | [facility] | [address] | | | | | and [facility] | [phone] | | | | | 1,15th Floor | | | | | | [facility] [place] | | | | | | [address] | | | | | | [phone] | | | +--------+ + + + [...]
--- OUTSIDE RECORDS SUMMARY | ~2020-03-09 | XMS | Encounter Summary ---
Demographics + + + | Address | [address] | | | [place] [address] | + + + | Home Phone [...] Team Providers + +------+ + | Care Bookbinder Chief Name | Role | Phone | + +------+ + | Justo Vazquez MD | PCP | | + +------+ + Encounter Details +--------+ + + + + | Date | Type | Department | Care Team | Description | +--------+ + + + + | 03/18/ | Telephone | [facility] | Kenny Gaspar MD | | | 2017 | | [place] [address] [address] | | | | | | [address] [facility] | | | | | | for Health and | | | | | | [facility], [facility] 2 | | | | | | [place], [place] | | | | | | [address] | | | | | | [phone] | | | +--------+ + + + [...]
--- OUTSIDE RECORDS SUMMARY | ~2020-03-09 | XMS | Encounter Summary ---
Demographics + + + | Address | [address] | | | [place] [address] | + + + | Home Phone [...] 2015 | | Center at [facility] [address] | MD Melissa | | | | | [facility] | | | | | | for Health and | | | | | | Healing, [facility] 2 | | | | | | [place], [place] | | | | | | [address] | | | | | | [phone] | | | +--------+ + + + [...]
--- OUTSIDE RECORDS SUMMARY | ~2020-03-09 | XMS | Encounter Summary ---
Demographics + + + | Address | [address] | | | [place] [address] | + + + | Home Phone [...] Team Providers + +------+ + | Care Therapeutic Riding Instructor Name | Role | Phone | [...] + + | 08/03/ | Refill | [facility] | Alex Sanchez, | Refill Request | | 2018 | | Pain Center at | ,PhD [address] [facility] | (ketamine) | | | | [facility] | [facility] | | | | | [address] | [place], [place] | | | | | [facility] | [address] | | | | | and Martina [facility] | [phone] | | | | | 15 Floor | | | | | | [place], [place] | | | | | | [address] | | | | | | [phone] | | | +--------+--------+ + + + [...]
--- OUTSIDE RECORDS SUMMARY | ~2020-03-09 | XMS | Encounter Summary ---
Demographics + + + | Address | [address] | | | [place] [address] | + + + | Home Phone [...] Providers + +------+ + | Care Laboratory Scientist Name | Role | Phone | [...] | 2017 | Encounter | Center at [facility] [address] | | results | | | | [address] [facility] | | | | | | for Health and | | | | | | Healing, Building 2 | | | | | | [place], [place] | | | | | | [address] | | | | | | [phone] | | | +--------+ + + + [...]
--- OUTSIDE RECORDS SUMMARY | ~2020-03-09 | XMS | Encounter Summary ---
Demographics + + + | Address | [address] | | | [place] [address] | + + + | Home Phone [...] Providers + +------+ + | Care Law Firm Consultant Name | Role | Phone | [...] | | Pain | Complex | [place], ROOFER APPLICATOR | Catriona M, | | | | Management | regional | [address] | PS[address] | | | | | pain | [address] | [address] | | | | | syndrome | [place], [place] | [place], [place] | | | | | type 1 of | [address] | [address] Phone: | | | | | left lower | Phone: | [phone] | | | | | extremity | [phone] | Fax: | | | | | Intractable | Fax: | [phone] | | | | | cyclical | [phone] | | | | | | vomiting [...] | | | | | | [place] | | | | | | | PSYCHIATRIC | | | | | | | DIAGNOSTIC | | | | | | | EVAL, NO MED | | | | | | | SVCS [place] | | | | | | | PSYCH TSTNG | | | | | | | PSYCH/PHYS | | | | | | | [place] | | | | | | | PSYCHOTHERAP | | | | | | | Y, 45 MIN | | | +--------+---------+ + + + + Encounter Details +--------+---------+ + + + | Date | Type | Department | Care Team | Description | +--------+---------+ + + + | 10/11/ | Office | Pain Center at [facility] | Jamel Bravo, | 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 Concentration is 150mg/mL. Compounded by [employer] ([phone]), Disp: , Rfl: 5 lamoTRIgine 200 mg [...] oral recon soln, Take as directed by [facility]- 2 gallon bowel prep, Disp: 8000 mL, [...] e. She reported doing some of the head chopper. For enjoyment the patient watches TV, reads, [...] time I spent was approximately 50 minutes xaoq-vu-izqu with the patient and approxima tely 1 hour 40 minutes of nux-bgkk-kw-face testing, interpreting and synthesizing results. Jamel Bravo, PhD [facility] AT [facility] [address]TH [address] [facility] Mail Code: Ch15p [place] [address] documented in this en counter [...]
--- OUTSIDE RECORDS SUMMARY | ~2020-03-09 | XMS | Encounter Summary ---
Demographics + + + | Address | [address] | | | [place] [address] | + + + | Home Phone [...] Providers + +------+ + | Care Sales Training Coordinator Name | Role | Phone | [...] | Diagnoses | Beulah | [employer] | | | | Therapy | CRPS | Janak Martinez MD | [address] | | | | | (complex | [address] | | | | | regional | [address] | Mailcode: | | | | | pain | Mailstop | [facility] | | | | | syndrome), | [id number] | for Health | | | | | lower limb | [place] | and Healing, | | | | | Gait | [address] | Building 1 | | | | | disturbance | Phone: | [place], [place] | | | | | Muscle pain | [phone] | [address] | | | | | Procedures | Fax: | Phone: | | | | | PHYSICAL | [phone] | [phone] | | | | | THERAPY | [...] | | | [place] | Ave [place], [place] | syndrome), lower | | | | [address] | [phone] | limb (Primary Dx) | | | | [place] for [facility] | | | | | | and Healing, | | | | | | Building 1, | | | | | | Floor [place], [place] | | | | | | [address] | | | | | | [phone] | | | +--------+---------+ + + + [...] might be different f rom the original. [id number] BRODY FARAH Date of : 1990 Start of care: 02/14/2012 Date of onset: 02/14/2012 Referring/Attending Practitioner: Janak Riojas MD . Primary/Referral Diagnosis/ICD-9: 355.71B CRPS (complex regional pain syndrome), lower limb Insurance: Payor: [facility] [employer] Plan: BCBS OUT OF STATE Product Type: [...] MEDICAL CENTER Outpatient [facility] Services Mailcode: Ch3p [address] [facility], [address] [place] [address] documented in this encounter Plan of Treatment Not on filedocumented as of this encounter Procedures + +--------+ + + + | Procedure Name | Priori | Date/Time | Associated Diagnosis | Comments | | | ty | | | | + +--------+ + + + | GA THERAPEUTIC | Routin | 06/13/2012 | CRPS [...]
--- OUTSIDE RECORDS SUMMARY | ~2020-03-09 | XMS | Encounter Summary ---
Demographics + + + | Address | [address] | | | [place] [address] | + + + | Home Phone | | + + + | Preferred Language | Unknown | + + + | Marital Status | Single | + + + | Adventism Affiliation | 1073 | + + + | Race | Unknown | + + + | Ethnic Group | Unknown | + + + Author + + + | Author | [facility] | | | and Marvinana | + + + | Organization | [facility] | [...] [place] | | | | | [address] | | + + + + + | Bryant Farah | ERICKA | Unknown | | + + + + + Care Team Providers + +------+ + | Care Battalion Chief Name | Role | Phone | + +------+ + PCP | Unavailable | + +------+ + Encounter Details +--------+ + + + + | Date | Type | Department | Care Team | Description | +--------+ + + + + | 08/11/ | Hospital | [facility] | | | | 1998 | Encounter | MED CTR XRAY [address] | | | | | | Vandana Garcia | | | | | | [place] [address] | | | | | | [phone] | | | +--------+ + + + [...]
--- OUTSIDE RECORDS SUMMARY | ~2020-03-09 | XMS | Encounter Summary ---
Demographics + + + | Address | [address] | | | [place] [address] | + + + | Home Phone [...] Providers + +------+ + | Care Social Staff Worker Name | Role | Phone | [...] [address] | | | | | [facility] | [address] | | | | | [address] | [place], [place] | | | | | [place] for [facility] | [address] | | | | | and [facility] | [phone] | | | | | 1,15th Floor | | | | | | [place], [place] | | | | | | [address] | | | | | | [phone] | | | +--------+ + + + [...]
--- OUTSIDE RECORDS SUMMARY | ~2020-03-09 | XMS | Encounter Summary ---
Demographics + + + | Address | [address] | | | [place] [address] | + + + | Home Phone [...] Team Providers + +------+ + | Care Lunch Wagon Operator Name | Role | Phone | [...] [address]ook | sig) | | | | [facility] | [address] | | | | | [address] | [place], [place] | | | | | [facility] | [address] | | | | | and Martina [facility] | [phone] | | | | | Floor | | | | | | [place], [place] | | | | | | [address] | | | | | | [phone] | | | +--------+ + + + [...]
--- OUTSIDE RECORDS SUMMARY | ~2020-03-09 | XMS | Encounter Summary ---
Demographics + + + | Address | [address] | | | [place] [address] | + + + | Home Phone [...] Team Providers + +------+ + | Care Doughnut Batter Mixer Name | Role | Phone | + +------+ + | Justo Vazquez MD | PCP | | + +------+ + Encounter Details +--------+ + + + + | Date | Type | Department | Care Team | Description | +--------+ + + + + | 10/09/ | Telephone | [facility] | Alex Sanchez, | | | 2018 | | Pain Center at | ,PhD [address] | | | | | [facility] | [address] | | | | | [address] | [place], [place] | | | | | [place] for [facility] | [address] | | | | | and [facility] | [phone] | | | | | 1,15th Floor | | | | | | [place], [place] | | | | | | [address] | | | | | | [phone] | | | +--------+ + + + [...]
--- OUTSIDE RECORDS SUMMARY | ~2020-03-09 | XMS | Clinical Summary ---
Demographics + + + | Address | [address] | | | [place] [address] | + + + | Home Phone | | + + + | Preferred Language | Unknown | + + + | Marital Status | Single | + + + | Christian Affiliation | 1073 | + + + | Race | Unknown | + + + | Ethnic Group | Unknown | + + + Author + + + | Author | [facility] | | | and [place] | + + + | Organization | [facility] | | | and [...] | [place] | | | | | [address] | | + + + + + | Bryant Farah | ECON | Unknown | | + + + + + Care Team Providers + +------+ + | Care Data Processing Equipment Repairer Name | Role | Phone | [...] +--------+ +---------+--------+ | MEDICARE | MEDICA | [id number] | 07/15/20 | [phone] | | Medica | | | RE | | 15-Pre | 5 | | re | | | PART A | | sent | | | | | | AND B | | | | | | + +--------+ +--------+ +---------+--------+ | MEDICAID [place] | MEDICA | [id number] | | [phone] | | Medica | [...] | 1990 | [phone] | [place] [address] | | | ev[place] | | | 6 (Home) | | + +--------+ +--------+ + +"
--- OUTSIDE RECORDS SUMMARY | ~2020-03-09 | XMS | Encounter Summary ---
Demographics + + + | Address | [address] | | | [place] [address] | + + + | Home Phone [...] Providers + +------+ + | Care Manager Mba Name | Role | Phone | + +------+ + | Justo Vazquez MD | PCP | | + +------+ + Encounter Details +--------+ + + + + | Date | Type | Department | Care Team | Description | +--------+ + + + + | 09/20/ | Telephone | [facility] | Ilene Bright, | | | 2017 | | Pain Center at | IT HELP DESK TECHNICIAN [address] | | | | | [facility] | Ave [place], [place] | | | | | [address] | [address] | | | | | [place] for [facility] | [phone] | | | | | and [facility] | | | | | | 1,15th Floor | | | | | | [place], [place] | | | | | | [address] | | | | | | [phone] | | | +--------+ + + + [...]
--- OUTSIDE RECORDS SUMMARY | ~2020-03-09 | XMS | Encounter Summary ---
Demographics + + + | Address | [address] | | | [place] [address] | + + + | Home Phone [...] Providers + +------+ + | Care Steam Pipe Fitter Name | Role | Phone | + +------+ + | Justo Vazquez MD | PCP | | + +------+ + Encounter Details +--------+ + + + + | Date | Type | Department | Care Team | Description | +--------+ + + + + | 07/26/ | MyChart | [facility] | [place]ene Bright, | Labs | | 2017 | Encounter | Pain Center at | CERTIFIED RECREATIONAL THERAPIST [address] | | | | | [facility] | Ave [place], [place] | | | | | [address] | [address] | | | | | [place] for [facility] | [phone] | | | | | and [facility] | | | | | | 1,15th Floor | | | | | | [place], [place] | | | | | | [address] | | | | | | [phone] | | | +--------+ + + + [...]
--- OUTSIDE RECORDS SUMMARY | ~2020-03-09 | XMS | Encounter Summary ---
Demographics + + + | Address | [address] | | | [place] [address] | + + + | Home Phone [...] Providers + +------+ + | Care Senior Administrative Assistant Name | Role | Phone [...] | | Pain Center at | ,PhD [address] | denied) | | | | [facility] | [facility] | | | | | [address] | [place], [place] | | | | | [facility] | [address] | | | | | and Martina [facility] [address] | [phone] | | | | | 15 Floor | | | | | | [place], [place] | | | | | | [address] | | | | | | [phone] | | | +--------+ + + + [...]
--- OUTSIDE RECORDS SUMMARY | ~2020-03-09 | XMS | Encounter Summary ---
Demographics + + + | Address | [address] | | | [place] [address] | + + + | Home Phone [...] Providers + +------+ + | Care Legal Summer Intern Name | Role | Phone | [...] | Pain | | 2016 | | [place] [address] [address] | | | | | | [facility] | | | | | | for Health and | | | | | | Healing, Building 2 | | | | | | [place], [place] | | | | | | [address] | | | | | | [phone] | | | +--------+ + + + [...]
--- OUTSIDE RECORDS SUMMARY | ~2020-03-09 | XMS | Clinical Summary ---
Demographics + + + | Address | [address] | | | [place] [address] | + + + | Home Phone | | + + + | Preferred Language | Unknown | + + + | Marital Status | Single | + + + | Evangelical Affiliation | 1013 | + + + | Race | Unknown | + + + | Ethnic Group | Unknown | + + + Author + + + | Author | [employer] [facility] (Historical as of | | | 06-30-19) | + + + | Organization | [facility] (Historical as of | | | 06-30-19) [...] Providers + +------+ + | Care Procurement Forester Name | Role | Phone | [...] since. She has undergone extensive therapy at [facility] | | [facility] at pain clinics in [place] as well and | | [place], [place]. She has had sympathetic nerve blocks [...] +------+-------+ + | MEDICARE | MEDICA | [id number] | | | [address] | | | RE | | | | [place] [address] | | | IP-OP | | | | | + +--------+ +------+-------+ + | PREMERA | PREMER | [id number] | | | [address] [address] | | | A BLUE | 3 | | | [place], [place] | | | CARD | | | | [address] | + +--------+ +------+-------+ + | MEDICAID | [place] | [id number] | | | [address] | | | CARE | | | | [place] | | | [place] | | | | [address] | + +--------+ +------+-------+ + + +--------+ [...] | | al/Fam | | 1989 | [phone] | [place], [place] | | | evita | | | [phone] | [address] | + +--------+ +--------+ + +
--- OUTSIDE RECORDS SUMMARY | ~2020-03-09 | XMS | Encounter Summary ---
Demographics + + + | Address | [address] | | | [place] [address] | + + + | Home Phone [...] Team Providers + +------+ + | Care Ticket Collector Or Usher Name | Role | Phone | + +------+ + | Justo Vazquez MD | PCP | | + +------+ + Encounter Details +--------+ + + + + | Date | Type | Department | Care Team | Description | +--------+ + + + + | 12/28/ | Telephone | [facility] | Ilene Bright, | | | 2019 | | Pain Center at | YARN TWISTER [address] | | | | | [facility] | Ave [place], [place] | | | | | [address] | [address] | | | | | [place] for [facility] | [phone] | | | | | and [facility] | | | | | | 1,15th Floor | | | | | | [place], [place] | | | | | | [address] | | | | | | [phone] | | | +--------+ + + + [...]
--- OUTSIDE RECORDS SUMMARY | ~2020-03-09 | XMS | Encounter Summary ---
Demographics + + + | Address | [address] | | | [place] [address] | + + + | Home Phone [...] Providers + +------+ + | Care Manager Area Name | Role | Phone | + +------+ + | Justo Vazquez MD | PCP | | + +------+ + Encounter Details +--------+ + + + + | Date | Type | Department | Care Team | Description | +--------+ + + + + | 04/23/ | Anesthesia | Pain Center at [facility] | Aleta Rebollar MD 6345 | | | 2019 | Event | [address] | [address] | | | | | [facility] | [facility] [place] | | | | | and [facility] | [address] | | | | | | [phone] | | | | | [place], [place] | | | | | | [address] | | | | | | [phone] | | | +--------+ + + + [...]
--- OUTSIDE RECORDS SUMMARY | ~2020-03-09 | XMS | Encounter Summary ---
Demographics + + + | Address | [address] | | | [place] [address] | + + + | Home Phone [...] Team Providers + +------+ + | Care Spoon Maker Name | Role | Phone | [...] | | Center at [facility] [address] | MD Melissa | Marker instructions) | | | | [address] [facility] | | | | | | for Health and | | | | | | Healing, Building 2 | | | | | | [place], [place] | | | | | | [address] | | | | | | [phone] | | | +--------+ + + + [...]
--- OUTSIDE RECORDS SUMMARY | ~2020-03-09 | XMS | Encounter Summary ---
Demographics + + + | Address | [address] | | | [place] [address] | + + + | Home Phone [...] Team Providers + +------+ + | Care Seed District Sales Manager Name | Role | Phone [...] Medication Question | | 2016 | | [place] [address] 1705 | | | | | | [facility] | | | | | | for Health and | | | | | | Healing, [facility] 2 | | | | | | [place], [place] | | | | | | [address] | | | | | | [phone] | | | +--------+ + + + [...]
--- OUTSIDE RECORDS SUMMARY | ~2020-03-09 | XMS | Encounter Summary ---
Demographics + + + | Address | [address] | | | [place] [address] | + + + | Home Phone [...] Team Providers + +------+ + | Care Tray Server Name | Role | Phone | + +------+ + | Justo Vazquez MD | PCP | | + +------+ + Encounter Details +--------+ + + + + | Date | Type | Department | Care Team | Description | +--------+ + + + + | 01/02/ | Telephone | [facility] Comprehensive | Ilene Bright, | | | 2019 | | Pain Center at | POLISHER IMPLANT [address] | | | | | [facility] | Ave [place], [place] | | | | | [address] | [address] | | | | | [place] [facility] | [phone] | | | | | and [facility] | | | | | | 1,15th Floor | | | | | | [place], [place] | | | | | | [address] | | | | | | [phone] | | | +--------+ + + + [...]
--- OUTSIDE RECORDS SUMMARY | ~2020-03-09 | XMS | Encounter Summary ---
Demographics + + + | Address | [address] | | | [place] [address] | + + + | Home Phone [...] Team Providers + +------+ + | Care Binitrotoluene Operator Name | Role | Phone | [...] | | 2016 | | [place] [address] [address] | | | | | | [address] [facility] | | | | | | for Health and | | | | | | [facility], [facility] 2 | | | | | | [place], [place] | | | | | | [address] | | | | | | [phone] | | | +--------+ + + + [...]
--- OUTSIDE RECORDS SUMMARY | ~2020-03-09 | XMS | Encounter Summary ---
Demographics + + + | Address | [address] | | | [place] [address] | + + + | Home Phone [...] Providers + +------+ + | Care Investigator Vice Name | Role | Phone | + [...] Medical Records | | 2017 | | [place] at [facility] [address] | | Review | | | | [address] [facility] | | | | | | for Health and | | | | | | [facility], [facility] 2 | | | | | | [place], [place] | | | | | | [address] | | | | | | [phone] | | | +--------+ + + + [...]
--- OUTSIDE RECORDS SUMMARY | ~2020-03-09 | XMS | Encounter Summary ---
Demographics + + + | Address | [address] | | | [place] [address] | + + + | Home Phone [...] + | Organization | [facility] | | [...] [place] | | | | | [address] | | + + + + + | Bryant Farah | ERICKA | Unknown | | + + + + + Care Team Providers + +------+ + | Care Newspaper Press Operator Apprentice Name | Role | Phone | + +------+ + PCP | Unavailable | + +------+ + Encounter Details +--------+ + + + + | Date | Type | Department | Care Team | Description | +--------+ + + + + | 09/12/ | Hospital | [facility] | | | | 2008 | Encounter | [facility] | | | | | | CENTER [address] | | | | | | [place], [place] | | | | | | [address] | | | | | | [phone] | | | +--------+ + + + [...]
--- OUTSIDE RECORDS SUMMARY | ~2020-03-09 | XMS | Encounter Summary ---
Demographics + + + | Address | [address] | | | [place] [address] | + + + | Home Phone [...] Providers + +------+ + | Care Production Director Name | Role | Phone | [...] | CRPS | Janak Martinez MD | [facility] [address] | | | | | (complex | [address] | Pavilion | | | | | regional | [address] | [address] | | | | | pain | Mailstop | Ac[address] Vanegas, | | | | | syndrome), | [id number] | Basement | | | | | lower limb | [place], [place] | [place], [place] | | | | | Procedures | [address] | [address] | | | | | [place] BONE &/[place] | Phone: | Phone: | | | | | JOINT | [phone] | [phone] | | | | | IMAGING 3 | Fax: | Fax: | | | | | PHASE | [phone] | [phone] | +--------+--------+ + + + + Encounter Details +--------+ + + + + | Date | Type | Department | Care Team | Description | +--------+ + + + + | 02/13/ | Hospital | Nuclear Medicine | | | | 2011 | Encounter | at [facility] [address] | | | | | | Ayala Delvalle | | | | | | [place] Vanegas, | | | | | | Narayan [place], | | | | | | [place] [address] | | | | | | [phone] | | | +--------+ + + + [...]
--- OUTSIDE RECORDS SUMMARY | ~2020-03-09 | XMS | Encounter Summary ---
Demographics + + + | Address | [address] | | | [place] [address] | + + + | Home Phone [...] Providers + +------+ + | Care Health Coach Name | Role | Phone | [...] | Diagnoses | Beulah | Edu Pt Technical Illustrations Map Inker | | | | Therapy | CRPS | Janak Martinez MD | [address] | | | | | (complex | [address] | | | | | regional | [address] | Mailcode: | | | | | pain | Mailstop | [facility] | | | | | syndrome), | [id number] | for Health | | | | | lower limb | [place], [place] | and Healing, | | | | | Gait | [address] | Building 1 | | | | | disturbance | Phone: | [place], [place] | | | | | Muscle pain | [phone] | [address] | | | | | Procedures | Fax: | Phone: | | | | | PHYSICAL | [phone] | [phone] | | | | | THERAPY | [...] regional pain | | | | [facility] | Ave [place], [place] | syndrome), lower | | | | [address] | [phone] | limb (Primary Dx) | | | | Center for Health | | | | | | and Healing, | | | | | | Building 1, 1st | | | | | | Floor [place], [place] | | | | | | [address] | | | | | | [phone] | | | +--------+---------+ + + + [...] might be different f rom the original. [id number] BRODY FARAH Date of : 1990 Start of care: 02/14/2012 Date of onset: 02/14/2012 Referring/Attending Practitioner: Janak Riojas MD . Primary/Referral Diagnosis/ICD-9: 355.71B CRPS (complex regional pain syndrome), lower limb Insurance: Payor: [facility] Plan: BCBS OUT OF STATE Product Type: PP O Service period from: 02/14/2012 to: 08/12/2012 Number visits used/authorized: 05/25 [facility] PHYSICAL THERAPY PROGRESS NOTE SUBJECTIVE: Age: [...] any change in their status. Guill[facility] Outpatient Rehabilitation Services Mailcode: Ch3p [address] [facility], 1st Floor [facility] [address] documented in this encounter Plan [...]
--- OUTSIDE RECORDS SUMMARY | ~2020-03-09 | XMS | Encounter Summary ---
Demographics + + + | Address | [address] | | | [place] [address] | + + + | Home Phone [...] Providers + +------+ + | Care Steam Crane Operator Name | Role | Phone [...] ogy | | Ava Torres, | [address] | | | | | Constipation | MD [address] | [address] | | | | | , | [address] | [place] for | | | | | unspecified | [address] | Health and | | | | | constipation | [facility] [place] | Healing, | | | | | type | [address] | Building 2 | | | | | Procedures | | [place], [place] | | | | | CONSULT TO | | [address] | | | | | GI PROCEDURE | | Phone: | | | | | UNIT: | | [phone] | | | | | ANORECTAL | | Fax: | | | | | MANOMETRY | | [phone] | | | | | FL ANAL | | | | | | [...] | ogy | | [place], | Chh[address] | | | | | Gastroparesi | Allegra Nieto, | [address] | | | | | s | [place] [address] | Center for | | | | | | [address] | Health and | | | | | | [place], | Healing, | | | | | | [place] [address] | Building 2 | | | | | | Phone: | [place], [place] | | | | | | [phone] | [address] | | | | | | Fax: | Phone: | | | | | | [phone] | [phone] | | | | | | | Fax: | | | | | | | [phone] | +--------+--------+ + + + + Encounter Details +--------+---------+ + + + | Date | Type | Department | Care Team | Description | +--------+---------+ + + + | 08/10/ | Office | Digestive Health | Ava Carbajal | Constipation, | | 2015 | Visit | Center at [facility] [address] | MD Melissa | unspecified | | | | [facility] | | constipation type | | | | for Health and | | (Primary Dx) | | | | Healing, Building 2 | | | | | | [place], [place] | | | | | | [address] | | | | | | [phone] | | | +--------+---------+ + + + [...] in their attached note. Celia Lin MD Chief Sustainability Officercane feeder Division of Gastroenterology & Hepatology [facility] va Carbajal MD - 08/09/2016 8:40 PM PDT Gastroenterology Initial Clinic Note 08/09/2016 CHIEF COMPLAINT/IDENTIFICATION: "Gastroparesis"-Nausea emesis and abdominal pain -SECOND O GERMAINE Dr. Flores-Radha [facility] PCP: HANDY Villalpando HISTORY OF [...] Dr. Flores in [facility] at [facility]. Patient has hx of GERD which [...] MDS: Dr. Nyla Garcia GI Dr. [facility] LABS: -increased CRP 06/19/16: Lipase-normal [...] form versus functional syndrome. 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
--- OUTSIDE RECORDS SUMMARY | ~2020-03-09 | XMS | Encounter Summary ---
Demographics + + + | Address | [address] | | | [place] [address] | + + + | Home Phone [...] Team Providers + +------+ + | Care Cool Roofing Installer Name | Role | Phone | [...] | Complex | Alex Alba, | [facility] [address] | | | | | regional | ,PhD [address] | Pavilion | | | | | pain | [address] | [address] | | | | | syndrome | [address] | Acotsa Vanegas, | | | | | type 1 of | Rd | Basement | | | | | left lower | [place], [place] | [place], [place] | | | | | extremity | [address] | [address] | | | | | Muscle pain | Phone: | Phone: | | | | | Procedures | [phone] | [phone] | | | | | NM BONE | Fax: | Fax: | | | | | &/OR JOINT | [phone] | [phone] | | | | | IMAGING | [...] | | | | | | FL BONE | | | | | | | IMAGING, | | | | | | | LIMITED AREA | | | | | | | [place] BONE | | | | | | [...] | | 2018 | Encounter | at [facility] [address] | ,PhD [address] [facility] | | | | | [address] | [address] | | | | | [address] Vanegas, | [place], [place] | | | | | [facility], | [address] | | | | | [place] [address] | [phone] | | | | | [phone] | | | +--------+ + + + [...]
--- OUTSIDE RECORDS SUMMARY | ~2020-03-09 | XMS | Encounter Summary ---
Demographics + + + | Address | [address] | | | [place] [address] | + + + | Home Phone [...] Providers + +------+ + | Care Quality Project Manager Name | Role | Phone [...] | 10/21/ | Hospital | [place] [address] [address] | [place], | | | 2015 - | Encounter | [facility] | MD Tala [address] | | | | | [address] [place] [address] | [facility] | | | 10/25/ | | [place], [place] | [place], [place] | | | 2014 | | [address] | [address] | | | | | [phone] | [phone] | | | | | | | | | | | | Clifton Childers | | | | | | MD Nhan [address] [facility] | | | | | | [facility] | | | | | | [place], [place] | | | | | | [address] | | | | | | [phone] | | | | | | | [...] child. Followed by Dr. Katy berrios at [facility] in [place], [place]. Has been on a stable regimen for [...] agreeable with our plans. Clifton Childers MD Executive Vice President And Chief Financial Officer Division of Hospital Medicine Teaching Attending I [...] child. Followed by Dr. Katy berrios at [facility] in [place], [place], has been on a stable regimen [...] and plan. Lolita Ma MD, MPH Pager #[phone] PGY-1, Anesthesiology [facility] Associated attestation - Clifton Childers MD - [...] agreeable with our plans. Clifton Childers MD Executive Vice President And Chief Financial Officer Division of Hospital Medicine Teaching Attending I [...] the gastroenterology attending of record, Dr. Lulu kimblal, who agrees with the above assessment and [...] child. Followed by Dr. Katy berrios at [facility] in [place], [place], has been on a stable regimen for [...] and plan. Lolita Ma MD, MPH Pager #[phone] PGY-1, Anesthesiology [facility] Associated attestation - Clifton Childers MD - [...] history, primarily secondary to [facility] in [facility] of complicated ankle [...] would like the patient to establish in alf counseling and/or CBT as an outpatient if willing. Patient/Family Goals & Expectations: Above problems discussed with the patient who understands and is agreeable with our plans. Clifton Childers MD Executive Vice President And Chief Financial Officer Division of Hospital Medicine Teaching Attending I [...] good coping mechanism Heme/Lymphatic: negative Endocrine: negative Insurance Clerk: negative Past Medical History: History of chronic [...] he r CRPS in the pastm [facility] pharmacy does not carry this so we are trying to arrange for her to take her home medication via pharmacy approval 5. APS will sign off but please call with questions/concerns Aba Dorman MD, PGY 3 Access Rep [place]-2 APS Pager: [phone] BILLING INFORMATION Deferred to attending physician. Ms. [...] up at this point. Please contact APS (#[phone]) if further assistance is needed. Ulices Lopez MD BILLING INFORMATION [facility] DEPARTMENT: [id number] Place of Service:- Inpatient Date of Service: 10/23/2015 CSN: [id number] Suggested Modifier: GC - Resident Involved Suggested CPT: 58702 - Follow up visit (includes PNB) - [...] recd call from Dr. Madrid from [facility]. She has known pt for many yea rs and suggested ketamine and propofol gtt. Updated her on APS recommendations. She will hav e her office fax her clinic records to us. Pt was seen with Dr. Childers. Milton Moreau MD PGY-3, Internal Medicine Pager [phone] Pro Edwards RN - 10/22/2015 10:06 AM PSTActing as scribe for the UR Committee Physician named below. The primary medical team for this patient and the [facility] UR Committee have agreed after furth er study that an inpatient admission was not medically necessary. This hospital stay is con verted to an outpatient stay through use of Medicare Condition Code 44. The patient was not ified of this change in writing. The providers involved in this decision were: For patient s primary medical team: Melissa Childers MD For [facility] UR Committee: Kerry HARRIS RN CM ACM [...] | | | LABORATORY | | | [place] | | | SERVICES, | | | [...] | + + + + + | [facility] | [address] | [place] [address] | | | SERVICES, CORE | PARK [...] | | | | | | Radiologists: JOYEC | | | | | | INOCENTE [...] | + +---------+ + + | [facility] DEPARTMENT OF | | | | | [...] | + + + | STAT | [facility] | | | LABORATORY | | | LILLIAN CROSS | + + + + + + + + | Performing | Address | City/State/Zipcode | Phone Number | | Organization | | | | + + + + + | [facility] | [address] | [place] [address] | | | SERVICESLILLIAN | [address] [...] | | | LABORATORY | | | [place] | | | SERVICES, | | | [...] MDRD equation recommended by the | [facility] | | National Kidney Disease Education Program. [...] [facility] | [address] | [place] [address] | | | SERVICES, CORE | PARK [...] | + + + + + | [facility] | [address] | [place] [address] | | | SERVICES, CORE | GUILLERMO [...] [facility] | [address] | [place] [address] | | | SERVICES, CORE | PARK [...] + | [facility] | [address] | [place] [address] | | | SERVICES, CORE | PARK [...] | + + + + + | [facility] | [address] | [place] [address] | | | SERVICES, CORE | GUILLERMO [...] | | | LABORATORY | | | [place] | | | SERVICES, | | | [...] KEVIN SHAH | [address] | [place] [address] | | | SERVICES, CORE | PARK [...] | | | | | 1 dose, [facility] 10/23/15 at 1245 | | PM PST | | | | + +-------+ +-------+---+---+ +---+---+ | | | +---+---+ + +-------+ +--------+---+---+ | ibuprofen (MOTRIN) tablet 600 | Given | 10/25/20 | 600 mg | | | | mg 600 mg, oral, EVERY 6 HOURS, | | 15 8:05 | | | | | First dose on [facility] 10/23/15 at | | AM PST [...] | | | | | NEEDED, Starting [facility] 10/23/15 at | | | | [...]
--- OUTSIDE RECORDS SUMMARY | ~2020-03-09 | XMS | Encounter Summary ---
Demographics + + + | Address | [address] | | | [place] [address] | + + + | Home Phone [...] Providers + +------+ + | Care Supervisor Car Installations Name | Role | Phone | + [...] 2016 | | Pain Center at | SILVER HOLLOWARE ASSEMBLER [address] | | | | | [facility] | [place], [place] | | | | | [address] | [address] | | | | | [facility] | [phone] | | | | | and [facility] | | | | | | Floor | | | | | | [place], [place] | | | | | | [address] | | | | | | [phone] | | | +--------+ + + + [...]
--- OUTSIDE RECORDS SUMMARY | ~2020-03-09 | XMS | Encounter Summary ---
Demographics + + + | Address | [address] | | | [place] [address] | + + + | Home Phone [...] + +------+ + | Care Pipe Fitter Supervisor Name | Role | Phone | + +------+ + | Justo Vazquez MD | PCP | | + +------+ + Encounter Details +--------+------+ + + + | Date | Type | Department | Care Team | Description | +--------+------+ + + + | 12/14/ | Lab | Laboratory at [facility] | | Complex regional | | 2018 | | [address] | | pain syndrome type 1 | | | | Center for [facility] | | of left lower | | | | and Healing, | | extremity; Muscle | | | | Building 2 | | pain | | | | [place], [place] | | | | | | [address] | | | | | | [phone] | | | +--------+------+ + + + [...] | + + + + + | [facility] | [address] | [place] [address] | | | LILLIAN CROSS | [address]MO [...]
--- OUTSIDE RECORDS SUMMARY | ~2020-03-09 | XMS | Encounter Summary ---
Demographics + + + | Address | [address] | | | [place] [address] | + + + | Home Phone [...] Providers + +------+ + | Care Senior Production Planner Name | Role | Phone | + [...] + + | 03// | Telephone | [facility] | Alex Sanchez, | Medication (clarify | | 2018 | | Pain Center at | ,PhD [address] | sig on Ketamine) | | | | [facility] | [facility] | | | | | [address] | [place], [place] | | | | | [facility] | [address] | | | | | and [facility] | [phone] | | | | | 15th Floor | | | | | | [place], [place] | | | | | | [address] | | | | | | [phone] | | | +--------+ + + + [...]
--- OUTSIDE RECORDS SUMMARY | ~2020-03-09 | XMS | Encounter Summary ---
Demographics + + + | Address | [address] | | | [place] [address] | + + + | Home Phone [...] Providers + +------+ + | Care Medical Numerical Control Operator Name | Role | Phone [...] [address] Shane | | | | | [facility] | [facility], | | | | | [address] | [place] [address] | | | | | [facility] | [phone] | | | | | and [facility] | | | | | | ,15th Floor | | | | | | [place], [place] | | | | | | [address] | | | | | | [phone] | | | +--------+ + + + [...]
--- OUTSIDE RECORDS SUMMARY | ~2020-03-09 | XMS | Encounter Summary ---
Demographics + + + | Address | [address] | | | [place] [address] | + + + | Home Phone [...] Team Providers + +------+ + | Care Train Driver Name | Role | Phone | + +------+ + | Justo Vazquez MD | PCP | | + +------+ + Encounter Details +--------+ + + + + | Date | Type | Department | Care Team | Description | +--------+ + + + + | 10/19/ | Telephone | [facility] Comprehensive | Ilene Bright, | | | 2017 | | Pain Center at | REPEATER OPERATOR [address] | | | | | [facility] | Ave [place], [place] | | | | | [address] | [address] | | | | | [facility] | [phone] | | | | | and [facility] | | | | | | 1,15th Floor | | | | | | [place], [place] | | | | | | [address] | | | | | | [phone] | | | +--------+ + + + [...]
--- OUTSIDE RECORDS SUMMARY | ~2020-03-09 | XMS | Encounter Summary ---
Demographics + + + | Address | [address] | | | [place] [address] | + + + | Home Phone [...] Providers + +------+ + | Care Director Life Insurance Name | Role | Phone | + [...] | | | | | syndrome | [facility] | | | | | type 1 of | Rd | Rd [place], | | | | | left lower | [facility] [place] | [place] | | | | | extremity | [address] | [address] | | | | | Procedures | Phone: | Phone: | | | | | REQUEST TO | [phone] | [phone] | | | | | SURGERY | Fax: | Fax: | | | | | CASUALTY CLAIMS SUPERVISOR | [phone] | [phone] | +--------+---------+ + + + + Physical [...] | | | | regional | ,PhD 5651 | OTPTRehab | | | | | pain | [facility] | [address] | | | | | syndrome | [facility] | [place] | | | | | type 1 of | Rd | [place] | | | | | left lower | [place], [place] | [address] | | | | | extremity | [address] | Phone: | | | | | Procedures | Phone: | [phone] | | | | | PHYSICAL | [phone] | Fax: | | | | | THERAPY | Fax: | [phone] | | | | | REFERRAL | [phone] | | +--------+--------+ + + + + [...] | | | | | Procedures | [place], [place] | Rd [place], | | | | | CONSULT TO | [address] | [place] | | | | | PAIN | | [address] | | | | | MANAGEMENT | | Phone: | | | | | | | [phone] | | | | | | | Fax: | | | | | | | [phone] | +--------+--------+ + + + + Encounter Details +--------+---------+ + + + | Date | Type | Department | Care Team | Description | +--------+---------+ + + + | 06/12/ | Office | [facility] Comprehensive | Alex Sanchez, | Complex regional | | 2018 | Visit | Pain Center at | ,PhD [address] [facility] [facility] | pain syndrome type 1 | | | | [facility] | [address] | of left lower | | | | [address] | [place], [place] | extremity (Primary | | | | Center for Health | [address] | Dx) | | | | and Healing Building | [phone] | | | | | 1,15th Floor | | | | | | [place], [place] | | | | | | [address] | | | | | | [phone] | | | +--------+---------+ + + + [...] in the future, please contact me via [employer] to request an order to schedule. The procedure you discussed with your doctor is called: SCS DRG TRIAL LUMBAR [facility]. Please make sure this is scheduled with the [facility]. PRE-PROCEDURE INSTRUCTIONS 1. Please bring a speedboat driver with you as we may give you medications that impair your ability to drive. This is necessary even if you do not receive sedation. You may take a taxi or ri T[place] if you are accompanied by a responsible [...] weeks before your procedure, please contact [facility] to cl arify your instructions. The phone number for questions or concerns is [phone]. documented in this encounter Progress Notes Holly [...] whose last appoi ntment at the [facility] was May 08, 2018, [...] that this mildly agitated her neck pain. MARBLE COPER Brief Pain Inventory: (ten= worst possible pain [...] Hemroidectomy Trial spinal cord stimulator leads 08/02/2012 [facility], Surgeon: Janak Riojas MD Cholecystectomy Appendectomy [...] History Social History Narrative Single. Goes to [employer] with a light load. Has been working at [employer], can' t work on [employer]. Has roommates. Allergies Allergen Reactions Morphine Anaphylaxis [...] by physician. Concentration is 150mg/mL. Compounded by [facility] ( [phone]) KETOROLAC IM Inject into the muscle (IM). [...] GRAM-5.86 GRAM SOLUTION Take as directed by [facility] Digestive Health- 2 gallon bowel [...] and summary of old medical records (source: [employer]), as summarized in the body of [...] to send me a mess age via [employer] to request referrals to acupuncture and massage [...] by Sonia Key. Alex Sanchez MD PhD Environmental Economist Anesthesiology and Pain Management [facility] documented in t his encounter Plan [...]
--- OUTSIDE RECORDS SUMMARY | ~2020-03-09 | XMS | Encounter Summary ---
Demographics + + + | Address | [address] | | | [place] [address] | + + + | Home Phone [...] Team Providers + +------+ + | Care Contracts Officer Name | Role | Phone | [...] ogy | | Ava Torres, | [address] | | | | | Constipation | MD [address] | [address] | | | | | , | Mook Shane | [place] for | | | | | unspecified | [address] | Health and | | | | | constipation | [facility] [place] | Healing, | | | | | type | [address] | Building 2 | | | | | Procedures | | [place], [place] | | | | | CONSULT TO | | [address] | | | | | GI PROCEDURE | | Phone: | | | | | UNIT: | | [phone] | | | | | ANORECTAL | | Fax: | | | | | MANOMETRY | | [phone] | | | | | AL ANAL [...] | ogy | | [place], | [address] | | | | | Gastroparesi | Allegra Nieto, | [address] | | | | | s | [place] [address] | Center for | | | | | | [address] | Health and | | | | | | [place], | Healing, | | | | | | [place] [address] | Building 2 | | | | | | Phone: | [place], [place] | | | | | | [phone] | [address] | | | | | | Fax: | Phone: | | | | | | [phone] | [phone] | | | | | | | Fax: | | | | | | | [phone] | +--------+--------+ + + + + Encounter Details +--------+---------+ + + + | Date | Type | Department | Care Team | Description | +--------+---------+ + + + | 08/10/ | Office | Digestive Health | Ava Carbajal | Constipation, | | 2015 | Visit | Center at [facility] [address] | MD Melissa | unspecified | | | | [address] [facility] | | constipation type | | | | for Health and | | (Primary Dx) | | | | Healing, Building 2 | | | | | | [place], [place] | | | | | | [address] | | | | | | [phone] | | | +--------+---------+ + + + [...] in their attached note. Celia Lin MD Sign Artistmarine driller Division of Gastroenterology & Hepatology [facility] va Carbajal MD - 08/09/2016 8:40 PM PDT Gastroenterology Initial Clinic Note 08/09/2016 CHIEF COMPLAINT/IDENTIFICATION: "Gastroparesis"-Nausea emesis and abdominal pain -SECOND O GERMAINE Dr. Flores-Radha [facility] PCP: HANDY Villalpando HISTORY OF [...] Dr. Flores in [facility] at [facility]. Patient has hx of GERD [...] had CT abdomen w contrast done at [facility] on 10/23/15 showing large stool burden [...] GI MDS: Dr. Nyla Garcia GI Dr. [facility] LABS: -increased CRP 06/19/16: Lipase-normal [...] form versus functional syndrome. Would also con sole ruffer GERD as a cause for her nausea [...]
--- OUTSIDE RECORDS SUMMARY | ~2020-03-09 | XMS | Encounter Summary ---
Demographics + + + | Address | [address] | | | [place] [address] | + + + | Home Phone [...] Providers + +------+ + | Care Rn Integrity Name | Role | Phone | + [...] | | | | | [place], | | | | | | [place] [address] | | | +--------+ + + + [...]
--- OUTSIDE RECORDS SUMMARY | ~2020-03-09 | XMS | Encounter Summary ---
Demographics + + + | Address | [address] | | | [place] [address] | + + + | Home Phone [...] + +------+ + | Care Front Desk Admin Name | Role | Phone | [...] | [facility] | [facility] [address] | | | | | [address] | [place], [place] | | | | | [facility] | [address] | | | | | and [facility] Building | [phone] | | | | | 1,15th Floor | | | | | | [place], [place] | | | | | | [address] | | | | | | [phone] | | | +--------+ + + + [...]
--- OUTSIDE RECORDS SUMMARY | ~2020-03-09 | XMS | Encounter Summary ---
Demographics + + + | Address | [address] | | | [place] [address] | + + + | Home Phone [...] Providers + +------+ + | Care Food Products Tester Name | Role | Phone | + +------+ + | Justo Vazquez MD | PCP | | + +------+ + Encounter Details +--------+ + + + + | Date | Type | Department | Care Team | Description | +--------+ + + + + | 09/27/ | Telephone | [facility] Comprehensive | Ilene Bright, | | | 2017 | | Pain Center at | SIENE MAKER [address] | | | | | [facility] | [place], [place] | | | | | [address] | [address] | | | | | [place] for [facility] | [phone] | | | | | and [facility] | | | | | | 1,15th Floor | | | | | | [place], [place] | | | | | | [address] | | | | | | [phone] | | | +--------+ + + + [...]
--- OUTSIDE RECORDS SUMMARY | ~2020-03-09 | XMS | Encounter Summary ---
Demographics + + + | Address | [address] | | | [place] [address] | + + + | Home Phone [...] Providers + +------+ + | Care Furnace Door Tender Name | Role | Phone | [...] | | | | | Procedures | [place], [place] | | | | | | MR | [id number] | | | | | | ENTEROGRAPHY [...] | 2017 | Visit | Center at [facility] [address] | | unspecified location | | | | [address] [facility] | | (Primary Dx) | | | | for Health and | | | | | | Healing, Building 2 | | | | | | [place], [place] | | | | | | [address] | | | | | | [phone] | | | +--------+---------+ + + + [...] heavy metal poisoning 2) MR enterography - [phone] to schedule 3) can increase miralax to 6 times per day Return to clinic in 3 months Please feel free to call our clinic with any questions. [phone] Kenny Gaspar MD Fellow, Division of Gastroenterology [...] n their attached note. Celia Lin MD Leather Polishertape weaver Division of Gastroenterology & Hepatology [facility] Kenny Dodge Md - 2016 3:15 PM PST Gastroenterology Clinic Follow-Up Note 01/11/2017 CC/ID: Tracie Farah is a 26 F PMHx depression, complex regional pain syndrome(CRPS ) here for follow-up of n/v, abdominal pain INTERVAL HISTORY: Previously seen by Dr. Carbajal 08/10/16 - 10/2015 - hospitalized at [facility] for nausea/vomiting/pain -> [facility] -> CT [...] oral recon soln Take as directed by [facility]- 2 gallon bowel prep 8000 [...] Note | + + | Service Account, Applifier Res In Interface - 02/01/2017 3:50 PM [...]
--- OUTSIDE RECORDS SUMMARY | ~2020-03-09 | XMS | Encounter Summary ---
Demographics + + + | Address | [address] | | | [place] [address] | + + + | Home Phone [...] Team Providers + +------+ + | Care Steward/Stewardess Third Name | Role | Phone | + [...] Diagnoses | Beulah | [employer] | | | | Therapy | CRPS | Janak Martinez MD | [address] | | | | | (complex | [address] | | | | | regional | [address] | Mailcode: | | | | | pain | Mailstop | [facility] | | | | | syndrome), | [id number] | for Health | | | | | lower limb | [place], [place] | and Healing, | | | | | Gait | [address] | Building 1 | | | | | disturbance | Phone: | [place], [place] | | | | | Muscle pain | [phone] | [address] | | | | | Procedures | Fax: | Phone: | | | | | PHYSICAL | [phone] | [phone] | | | | | THERAPY | [...] | | [facility] | Ave [place], [place] | syndrome), lower | | | | [address] | [phone] | limb (Primary Dx) | | | | Center for Health | | | | | | and Healing, | | | | | | Building 1, 1st | | | | | | Floor [place], [place] | | | | | | [address] | | | | | | [phone] | | | +--------+---------+ + + + [...] might be different f rom the original. [id number] BRODY FARAH Date of : 1990 Start of care: 02/14/2012 Date of onset: 02/14/2012 Referring/Attending Practitioner: Janak Riojas MD . Primary/Referral Diagnosis/ICD-9: 355.71B CRPS (complex regional pain syndrome), lower limb Insurance: Payor: [facility] Plan: BCBS OUT OF STATE Product Type: PP O Service period from: 02/14/2012 to: 08/12/2012 Number visits used/authorized: 05/25 [facility] PHYSICAL THERAPY PROGRESS NOTE SUBJECTIVE: [...] change in their status. Guillermo [facility]on [facility] Outpatient Rehabilitation Services Mailcode: Ch3p [address] 1st Floor [facility] [address] documented in this encounter Plan of Treatment Not on filedocumented as of this encounter Procedures + +--------+ + + + | Procedure Name | Priori | Date/Time | Associated Diagnosis | Comments | | | ty | | | | + +--------+ + + + | RI MANUAL THER | Routin | 06/09/2012 | CRPS (complex | | | TECH,1+REGIONS,EA 15 | e | 2:46 PM | regional pain | | | MIN | | PDT | syndrome), lower | | | | | | limb | | + +--------+ + + + | RI THERAPEUTIC | Routin | 06/09/2012 | CRPS [...]
--- OUTSIDE RECORDS SUMMARY | ~2020-03-09 | XMS | Encounter Summary ---
Demographics + + + | Address | [address] | | | [place] [address] | + + + | Home Phone [...] Providers + +------+ + | Care Global Sales Manager Name | Role | Phone | + +------+ + | Justo Vazquez MD | PCP | | + +------+ + Encounter Details +--------+ + + + + | Date | Type | Department | Care Team | Description | +--------+ + + + + | 12/27/ | Ancillary | [facility] | Alex Sanchez, | | | 2018 | Orders | Pain Center at | ,PhD [address] | | | | | [facility] | [address] | | | | | [address] | [place], [place] | | | | | [place] for [facility] | [address] | | | | | and [facility] | [phone] | | | | | ,15th Floor | | | | | | [place], [place] | | | | | | [address] | | | | | | [phone] | | | +--------+ + + + [...]
--- OUTSIDE RECORDS SUMMARY | ~2020-03-09 | XMS | Encounter Summary ---
Demographics + + + | Address | [address] | | | [place] [address] | + + + | Home Phone [...] Providers + +------+ + | Care Manager Produce Name | Role | Phone | + [...] jorge | | | | | [address] [facility] | [place], [place] | | | | | for Health and | [address] | | | | | Healing, Building 1, | [phone] | | | | | [facility] Floor | | | | | | [facility] [place] | | | | | | [address] | | | | | | [phone] | | | +--------+ + + + [...] Note | + + | Service Account, Xierkang Res In Interface - 03/08/2018 9:42 AM [...]
--- OUTSIDE RECORDS SUMMARY | ~2020-03-09 | XMS | Encounter Summary ---
Demographics + + + | Address | [address] | | | [place] [address] | + + + | Home Phone [...] Team Providers + +------+ + | Care Zoo Keeper Name | Role | Phone | + +------+ + | Allegra Gandhi | PCP | | + +------+ + Encounter Details +--------+ + + + + | Date | Type | Department | Care Team | Description | +--------+ + + + + | 02/13/ | Outside | UNKNOWN DEPARTMENT | Other, Faculty | | | 2011 | Records | [address] | [phone] | | | | | [address] | | | | | | [place], [place] | | | | | | [address] | | | +--------+ + + + [...]
--- OUTSIDE RECORDS SUMMARY | ~2020-03-09 | XMS | Encounter Summary ---
Demographics + + + | Address | [address] | | | [place] [address] [...] Providers + +------+ + | Care Windows Technical Specialist Name | Role | Phone | [...] Rd | | | | | | [place], [place] | | | | | | [address] | | | +--------+ + + + [...]
--- OUTSIDE RECORDS SUMMARY | ~2020-03-09 | XMS | Encounter Summary ---
Demographics + + + | Address | [address] | | | [place] [address] | + + + | Home Phone [...] Providers + +------+ + | Care Heat Regulator Name | Role | Phone | [...] | | | regional | [place] | [address] | | | | | pain | FAMILY | Mailstop | | | | | syndrome), | MEDICINE P | [id number] | | | | | lower limb | [address] | [place], [place] | | | | | Pain in | [place], | [address] | | | | | joint, lower | [place] [address] | Phone: | | | | | leg | Phone: | [phone] | | | | | Procedures | [phone] | Fax: | | | | | REQUEST TO | Fax: | [phone] | | | | | SURGERY | [phone] | | | | | | INSURANCE APPLICATION INVESTIGATOR | | | +--------+--------+ + + + + Encounter Details +--------+ + + + + | Date | Type | Department | Care Team | Description | +--------+ + + + + | 08/02/ | Procedure | Pain Center at [facility] | Dale Cantu, | Procedure; | | 2011 | | [address] | [address] | Injection; Procedure | | | | [facility] | [facility] 8[address]88 | | | | | and [address] Building | [place], [place] | | | | | Floor | [address] | | | | | [place], [place] | [phone] | | | | | [address] | | | | | | [phone] | | | +--------+ + + + [...] e might be different from the original. [facility] Patient Instructions - Post Spinal Cord Stimulator Trial Date: 08/02/2012 Name: Tracie Farah Date of : 1990 Procedure Performed: SCS TRIAL LUMBAR [facility]. Procedure Provider: Dale Cantu [facility] Procedure Rm If you have any problems you believe are associated with your procedure tonight, Please call the Hospital Mechanic Foreman, and ask for the Pain Management Consu [...] call for concerns about SCS function. During [facility] open hours, call the [facility] ([phone]), after hours call the television operator at [facility] ([phone]) and ask for t he Adult Pain Service evp chief exploration officer. Identify yourself as a Comprehensive Pain [...] the wounds, dressing, or SCS function. During [facility] o pen hours, call the [facility] ([phone]), after hours call the television operator at [facility] ([phone] ) and ask for the Adult Pain Service evp chief exploration officer. Identify yourself as my patient with a concer n about postoperative recovery. If there are concerns about the SCS programming, contact t he admissions representative from the SCS magneto electrician. If the stimulation is not covering your area o f pain, your SCS should be reprogrammed. Do not take any blood thinning medications during the trial. Instructions printed and reviewed with the patient. Copy of instructions given to Ms. Nemo renee. DALE CANTU MD [facility] [...] and postoperative care instructions. DALE CANTU MD Aviation Program Manager, [facility] Senior Architect, Pain Medicine Professor, Anesthesiology & Perioperative Medicine Diana Arroyo RN - 08/02/2012 7:34 AM PDT PRE-SEDATION: Date: August 02, 2012 Tracie Farah [id number] 1990 ALLERGIES: Morphine Previous reaction to Sedation/Analgesia: MEDICATIONS: Current Outpatient Prescriptions Medication HYDROcodone-acetaminophen (NORCO) 10-325 mg Oral Tablet KETOROLAC TROMETHAMINE (TORADOL IM) levonorgestrel (MIRENA) 20 mcg/24 hr Intrauterine IUD LORazepam 1 mg Oral Tablet ondansetron (ZOFRAN) 8 mg Oral Tablet promethazine 25 mg Oral Tablet Meets NPO Guidelines. IV ACCESS: IV in Place IV Site [facility] 22 g @ 0655 BASELINE VS: See Sedation Flow Sheet. Tracie Donaldson [facility] [id number] 1990, presents to clinic for: Procedure: Spinal [...] 0732 - 0733: Midazolam 2 [place] [address]: Fentanyl 25 mcg IV 0740 - 0741: Midazolam 2 mg IV 0742: Procedure started 0743 - 0744: Fentanyl 50 mcg IV 0753-54: Fentanyl 25 mcg IV Lead # 1 placed Lead # 2 placed 0801: Stimulation started. 0829: Pt reports stimulation to usual areas of pain. Leads secured. 0845: Pt returned [facility] [place] in stable condition. IV dc'd. Evelia Parsons [...] OPERATIVE NOTE Date: August 02, 2012 Location: [facility] Procedure Room Tracie Farah [id number] :1990, presents to clinic for: PROCEDURE: Spinal Cord Stimuation Trial LEVEL/LATERALITY: midline lumbar PRE-OPERATIVE DIAGNOSIS: 355.71B CRPS (complex regional pain syndrome), lower limb 719.46 Pain in joint, lower leg 781.2Q Gait disturbance POST-OPERATIVE DIAGNOSIS: 355.71B CRPS (complex regional pain syndrome), lower limb 719.46 Pain in joint, lower leg 781.2Q Gait disturbance ATTENDING PHYSICIAN: Dale Cantu MD POLISHING WHEEL REPAIRER: Fellow Bear Yost DO ANESTHESIA: sedation [...] Ms. Farah was escorted to the [facility] Procedure Ro om, where she was positioned Prone on the examination table. TEAM PAUSE: The physician-led pause was conducted, and is documented in the Nursing note. Monitors were placed, including ECG, NIBP and SpO2. The skin was prepared with Chloroprep and sterile drapes were applied. [place] system was used for this procedure. The company admissions representative was theresa knutson for the procedure. [...] pain. Ms. Farah was transported to the [facility] post-procedure recovery area where she made an uneventful recovery. Images were saved, and sent to [employer]. Ms. Farah will have her next appointment [...] about wound healing or SCS function. During [facility] open hours, call the [facility] ([phone]), after h ours call the television operator at [facility] ([phone]) and ask for the Adult Pain Service evp chief exploration officer. Identify yourself as my patient with [...] + +--------+ + + + | [place] PERCUT IMPLNT | Routin | 08/03/2012 | [...]
--- OUTSIDE RECORDS SUMMARY | ~2020-03-09 | XMS | Encounter Summary ---
Demographics + + + | Address | [address] | | | [place] [address] | + + + | Home Phone [...] Team Providers + +------+ + | Care Sizer Machine Name | Role | Phone | [...] | | | | regional | ,PhD [address] | | | | | | pain | [address] | | | | | | syndrome | [address] | | | | | | type 1 of | Rd | | | | | | left lower | [place], [place] | | | | | | extremity | [address] | | | | | | Procedures | Phone: | | | | | | CONSULT TO | [phone] | | | | | | ORTHOPEDICS | Fax: | | | | | | AND | [phone] | | | | | | REHABILITATI | | | | | | | ON | | | +--------+--------+ + + + + Encounter Details +--------+ + + + + | Date | Type | Department | Care Team | Description | +--------+ + + + + | 06/08/ | Spotter Driver | [facility] | Alex Sanchez, | Complex regional | | 2019 | | Pain Center at | ,PhD [address] | pain syndrome type 1 | | | | [facility][Note 3] | [address] | of left lower | | | | [address] | [place], [place] | extremity (Primary | | | | Center for Health | [address] | Dx) | | | | and [facility] Building | [phone] | | | | | 15 Floor | | | | | | [place], [place] | | | | | | [address] | | | | | | [phone] | | | +--------+ + + + [...]
--- OUTSIDE RECORDS SUMMARY | ~2020-03-09 | XMS | Encounter Summary ---
Demographics + + + | Address | [address] | | | [place] [address] | + + + | Home Phone [...] Team Providers + +------+ + | Care Orthotics Prosthetics Assistant Name | Role | Phone | + +------+ + | Justo Vazquez MD | PCP | | + +------+ + Encounter Details +--------+ + + + + | Date | Type | Department | Care Team | Description | +--------+ + + + + | 12/05/ | Pharmacy | [facility] | | | | 2019 | Visit | [facility] | | | | | | [address] | | | | | | Mailcode: [place] | | | | | | [facility] and | | | | | | Healing, Building 1 | | | | | | [place], [place] | | | | | | [address] | | | | | | [phone] | | | +--------+ + + + [...]
--- OUTSIDE RECORDS SUMMARY | ~2020-03-09 | XMS | Encounter Summary ---
Demographics + + + | Address | [address] | | | [place] [address] | + + + | Home Phone [...] Providers + +------+ + | Care Retail Event Assistant Name | Role | Phone | [...] ogy | | Ava Torres, | [address] | | | | | Constipation | MD [address] | [address] [place] | | | | | , | [address] | [place] for | | | | | unspecified | [address] | Health and | | | | | constipation | [facility] [place] | Healing, | | | | | type | [address] | Building 2 | | | | | Procedures | | [place], [place] | | | | | CONSULT TO | | [address] | | | | | GI PROCEDURE | | Phone: | | | | | UNIT: | | [phone] | | | | | ANORECTAL | | Fax: | | | | | MANOMETRY | | [phone] | | | | | [place] ANAL | | | | | | | PRESSURE | | | | | | | RECORD | | | +--------+--------+ + + + + Encounter Details +--------+ + + + + | Date | Type | Department | Care Team | Description | +--------+ + + + + | 09/14/ | Hospital | [facility] | Nurse, Gip [address] | | | 2016 | Encounter | [place] | [address] [facility] | | | | | Oprter [facility] | Road [facility] [place] | | | | | for Health and | [address] | | | | | Healing, Building 2 | | | | | | [facility] [place] | | | | | | [address] | | | | | | [phone] | | | +--------+ + + + [...]
--- OUTSIDE RECORDS SUMMARY | ~2020-03-09 | XMS | Encounter Summary ---
Demographics + + + | Address | [address] | | | [place] [address] | + + + | Home Phone [...] Team Providers + +------+ + | Care Range Mounter Name | Role | Phone | [...] | | | sympathetic | [place] | [address]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 | FAMILY | Mailstop | | | | | of lower | MEDICINE P | [id number] | | | | | limb | [address] | [place], [place] | | | | | | [place], | [address] | | | | | | [place] [address] | Phone: | | | | | | Phone: | [phone] | | | | | | [phone] | Fax: | | | | | | Fax: | [phone] | | | | | | [phone] | | +--------+--------+ + + + + Encounter Details +--------+---------+ + + + | Date | Type | Department | Care Team | Description | +--------+---------+ + + + | 08/04/ | Office | [facility] | Dale Cantu, | CRPS (complex | | 2011 | Visit | Pain Center at | MD [address] [facility] | regional pain | | | | [facility] | [facility] [address] | syndrome), lower | | | | [address] | [place], [place] | limb (Primary Dx) | | | | [place] [facility] | [address] | | | | | and Healing Building | [phone] | | | | | 1,15th Floor | | | | | | [place], [place] | | | | | | [address] | | | | | | [phone] | | | +--------+---------+ + + + [...] evaluated the patient with Fellow Nhan Guo [facility], who conducted the initial history. I reviewed the history in det ail and edited his note. I was present for the examination and formulation portions of the encounter. I agree with the findings and the plan of care as documented in our notes. DALE CANTU MD Audiology Director, [facility] Front Desk Supervisor, Pain Medicine Professor, Anesthesiology & Perioperative [...] and social withdrawal enok Gutierrez, [facility] - 08/04/2012 7:25 AM PDTFormatting of this note might be different from the origi nal. [facility] [...] has been treated at the [facility] for lower limb pain with [...] General Activity: 10 (08/04/12 135) Mood: 6 (08/04/121352) Walking Ability: 5 (08/04/121352) Normal Work: 7 (09/21/12 1353) Relations with Others: 6 (08/04/12 1353) Enjoyment of Life: 10 (08/04/12 1353) Sexual Activity: 0 (08/04/12 1353) Sleep: 7 (08/04/12 135) The pain is located in the left [...] OF [place] was reviewed. Additional Review of Systems: 1. [...] multiple programs with both [facility] programs, however it appears that it [...] OK to shower. HENOK GUO [facility] documented in this en counter Plan of Treatment Not on filedocumented as of this encounter Visit Diagnoses + + | Diagnosis | + + | CRPS (complex regional pain syndrome), lower limb - Primary Causalgia of lower limb | + + documented in this encounter
--- OUTSIDE RECORDS SUMMARY | ~2020-03-09 | XMS | Encounter Summary ---
Demographics + + + | Address | [address] | | | [place] [address] | + + + | Home Phone [...]
--- OUTSIDE RECORDS SUMMARY | ~2020-03-09 | XMS | Encounter Summary ---
Demographics + + + | Address | [address] | | | [place] [address] | + + + | Home Phone [...] Team Providers + +------+ + | Care Commercial Construction Estimator Name | Role | Phone | [...]
--- OUTSIDE RECORDS SUMMARY | ~2020-03-09 | XMS | Encounter Summary ---
Demographics + + + | Address | [address] | | | [place] [address] | + + + | Home Phone [...] Providers + +------+ + | Care Line Locator Name | Role | Phone | + [...] | | Pain Center at | ,PhD [address] | denied) | | | | [facility] | [facility] | | | | | [address] | [place], [place] | | | | | [facility] | [address] | | | | | and [facility] | [phone] | | | | | 15 Floor | | | | | | [place], [place] | | | | | | [address] | | | | | | [phone] | | | +--------+ + + + [...]
--- OUTSIDE RECORDS SUMMARY | ~2020-03-09 | XMS | Encounter Summary ---
Demographics + + + | Address | [address] | | | [place] [address] | + + + | Home Phone [...] Providers + +------+ + | Care Senior Research Project Manager Name | Role | Phone [...] Medical Records | | 2017 | | [facility] [address] | | Review | | | | [address] [facility] | | | | | | for Health and | | | | | | [facility] 2 | | | | | | [place], [place] | | | | | | [address] | | | | | | [phone] | | | +--------+ + + + [...]
--- OUTSIDE RECORDS SUMMARY | ~2020-03-09 | XMS | Encounter Summary ---
Demographics + + + | Address | [address] | | | [place] [address] | + + + | Home Phone [...] Team Providers + +------+ + | Care Exhibit Display Representative Name | Role | Phone | + +------+ + | Justo Vazquez MD | PCP | | + +------+ + Encounter Details +--------+ + + + + | Date | Type | Department | Care Team | Description | +--------+ + + + + | 10/20/ | Telephone | [facility] | Ilene Bright, | | | 2017 | | Pain Center at | CARGO TANK MECHANIC [address] | | | | | [facility] | Ave [place], [place] | | | | | [address] | [address] | | | | | [place] for [facility] | [phone] | | | | | and [facility] | | | | | | 1,15th Floor | | | | | | [place], [place] | | | | | | [address] | | | | | | [phone] | | | +--------+ + + + [...]
--- OUTSIDE RECORDS SUMMARY | ~2020-03-09 | XMS | Encounter Summary ---
Demographics + + + | Address | [address] | | | [place] [address] | + + + | Home Phone [...] Team Providers + +------+ + | Care Wound Specialist Name | Role | Phone | [...] | | | | | Procedures | [place], [place] | | | | | | MR | [id number] | | | | | | ENTEROGRAPHY [...] | | | | | Procedures | [place], [place] | | | | | | MR | [id number] | | | | | | ENTEROGRAPHY [...] | 2017 | Encounter | Services at [facility] | [address] | | | | | [address] | [place], [place] | | | | | Giuliana Maldonado [place] | [address] | | | | | [facility] | [phone] | | | | | [place], [place] | | | | | | [address] | | | | | | [phone] | | | +--------+ + + + [...]
--- OUTSIDE RECORDS SUMMARY | ~2020-03-09 | XMS | Encounter Summary ---
Demographics + + + | Address | [address] | | | [place] [address] | + + + | Home Phone [...] Team Providers + +------+ + | Care Boom Man Name | Role | Phone | [...] | Request (ketamine) | | | | [facility] | [address] | | | | | [address] | [place], [place] | | | | | [facility] | [address] | | | | | and [facility] Building | [phone] | | | | | ,15th Floor | | | | | | [place], [place] | | | | | | [address] | | | | | | [phone] | | | +--------+ + + + [...]
--- OUTSIDE RECORDS SUMMARY | ~2020-03-09 | XMS | Encounter Summary ---
Demographics + + + | Address | [address] | | | [place] [address] | + + + | Home Phone [...] Providers + +------+ + | Care Candy Forming Machine Operator Name | Role | Phone | + +------+ + | Allegra Gandih | PCP | | + +------+ + Encounter Details +--------+ + + + + | Date | Type | Department | Care Team | Description | +--------+ + + + + | 02/13/ | Hospital | Nuclear Medicine | | | | 2011 | Encounter | at [facility] [address] | | | | | | [address] | | | | | | [address], | | | | | | [place], | | | | | | [place] [address] | | | | | | [phone] | | | +--------+ + + + [...]
--- OUTSIDE RECORDS SUMMARY | ~2020-03-09 | XMS | Encounter Summary ---
Demographics + + + | Address | [address] | | | [place] [address] | + + + | Home Phone [...] Providers + +------+ + | Care Clinical Advisor Name | Role | Phone | [...] | | | | regional | ,PhD [address] | | | | | | pain | [address] | | | | | | syndrome | [address] | | | | | | type 1 of | Rd | | | | | | left lower | [place], [place] | | | | | | extremity | [address] | | | | | | Procedures | Phone: | | | | | | CONSULT TO | [phone] | | | | | | ORTHOPEDICS | Fax: | | | | | | AND | [phone] | | | | | | REHABILITATI | | | | | | | ON | | | +--------+--------+ + + + + Encounter Details +--------+ + + + + | Date | Type | Department | Care Team | Description | +--------+ + + + + | 06/08/ | General Internist | [facility] | Alex Sanchez, | Complex regional | | 2019 | | Pain Center at | ,PhD [address] [facility] | pain syndrome type 1 | | | | [facility] | [address] | of left lower | | | | [address] | [place], [place] | extremity (Primary | | | | [facility] | [address] | Dx) | | | | and [facility] Building | [phone] | | | | | 15 Floor | | | | | | [place], [place] | | | | | | [address] | | | | | | [phone] | | | +--------+ + + + [...]
--- OUTSIDE RECORDS SUMMARY | ~2020-03-09 | XMS | Encounter Summary ---
Demographics + + + | Address | [address] | | | [place] [address] | + + + | Home Phone [...] Team Providers + +------+ + | Care Bowl Sander Name | Role | Phone | + +------+ + | Justo Vazquez MD | PCP | | + +------+ + Encounter Details +--------+ + + + + | Date | Type | Department | Care Team | Description | +--------+ + + + + | 03/17/ | MyChart | [facility] Ilene | Yun Frey NP | Welcome | | 2017 | Encounter | Pain Center at | [address] | | | | | [facility] | [place], [place] | | | | | [address] | [address] | | | | | [facility] | [phone] | | | | | and [facility] | | | | | | 1,15th Floor | | | | | | [place], [place] | | | | | | [address] | | | | | | [phone] | | | +--------+ + + + [...]
--- OUTSIDE RECORDS SUMMARY | ~2020-03-09 | XMS | Encounter Summary ---
Demographics + + + | Address | [address] | | | [place] [address] | + + + | Home Phone [...] Providers + +------+ + | Care Asphalt Layer Name | Role | Phone | [...] | | Pain | Complex | Ilene, OFFSET PRESS OPERATOR HELPER | Hanna M, | | | | Management | regional | [address] | [address] | | | | | pain | [address] | [address] | | | | | syndrome | [place], [place] | [place], [place] | | | | | type 1 of | [address] | [address] Phone: | | | | | left lower | Phone: | [phone] | | | | | extremity | [phone] | Fax: | | | | | Intractable | Fax: | [phone] | | | | | cyclical | [phone] | | | | | | vomiting [...] | | | | | | | [place] | | | | | | | PSYCHIATRIC | | | | | | | DIAGNOSTIC | | | | | | | EVAL, NO MED | | | | | | | [facility] [place] | | | | | | | PSYCH TSTNG | | | | | | | PSYCH/PHYS | | | | | | | [place] | | | | | | | [...] Pain Medicine | Diagnoses | Chasity, | Assessment Nurse Chh1 | | | | / Pain | Abdominal | MD Kenny | [address] | | | | Management | pain, | [address] | [facility] | | | | | unspecified | [facility] | for Health | | | | | location | Rd | and Healing | | | | | Procedures | [place], [place] | [facility] | | | | | CONSULT TO | [address] | 1,15th Floor | | | | | PAIN | | [place], [place] | | | | | MANAGEMENT | | [address] | | | | | | | Phone: | | | | | | | [phone] | | | | | | | Fax: | | | | | | | [phone] | +--------+--------+ + + + + Encounter Details +--------+---------+ + + + | Date | Type | Department | Care Team | Description | +--------+---------+ + + + | 04/25/ | Office | [facility] | [address] [place], | Abdominal pain, | | 2017 | Visit | Pain Center at | OFFSET PRESS OPERATOR HELPER [address] | unspecified location | | | | [facility] | Ave [place], [place] | (Primary Dx); | | | | [address] | [address] | Complex regional | | | | [place] for [facility] | [phone] | pain syndrome type 1 | | | | and Healing Building | | of left lower | | | | 1,15th Floor | | extremity; | | | | [place], [place] | | Intractable cyclical | | | | [address] | | vomiting with | | | | [phone] | | nausea; | | | | [...] encounter Patient Instructions Patient Instructions Ilene Bright, OFFSET PRESS OPERATOR HELPER - 04/25/2017 1:35 PM PDTKelly, Nice to [...] Freddie Guadalupe MD [email or web address] Ilene Childs DNP, OFFSET PRESS OPERATOR HELPER-C Adult Pain Service [facility] [address] [place] [address] documented in this encounter Progress Notes Ilene Bright FNP - 04/25/2017 1:35 PM PDTFormatting of this note might be different fr om the original. Date: 04/25/2017 was referred for pain management consultation by Kenny Gaspar MD [address] [place] [address] Reason for consult: abdominal pain Chief Complaint Patient presents with Abdominal pain Back pain History of Present Illness: Tracie Farah is a 26 year old female with a history of depression, complex regional pain syndrome (left lower extremity) for this she follows with a neurologist at [facility] in [facility]. She has been stable on her [...] (works better) Just started her on Celebrex (mcc option) Intranasal ketamine Lamotrigine Memantine Ibuprofen Cymbalta 20 mg BID Cyclobenzaprine Her nonmedication treatment has not included acupuncture, etc due to limited income. She feels that the most effective treatments include: medication (toradol). lives in [place], [place] alone and with her children. She receives disability. does not have specific goals for today's appointment. [facility] QUESTIONNAIRE BRIEF PAIN 04/24/2017 Please rate [...] has interfered with your sleep : 8 [facility] New Patient Questionnaire Responses 04/24/2017 What [...] or to get rid of a hangover (eye-creel cleaner)? No Do you drink alcohol to decrease [...] Hemroidectomy Trial spinal cord stimulator leads 08/02/2012 [facility], Surgeon: Janak Riojas MD Cholecystectomy [...] History Social History Narrative Single. Goes to [employer] with a light load. Has been working at [employer], can' t work on crSpoqa. Has roommates. Allergies Allergen Reactions Morphine Anaphylaxis [...] by physician. Concentration is 150mg/mL. Compounded by [facility] ) LAMOTRIGINE 200 MG TABLET [...] SOLUTION Take as directed by [facility]- 2 gallon bowel prep POLYETHYLENE GLYCOL 3350 17 GRAM/DOSE ORAL POWDER Take 17 g by mouth once daily. PROMETHAZINE 12.5 MG TABLET Take 12.5 mg by mouth four times daily as needed for nausea/vom iting. SUCRALFATE 1 GRAM TABLET Take 1 g by mouth four times daily. Radiology/Diagnostic Tests: MR ENTEROGRAPHY ABDOMEN AND PELVIS WWO CONTRAST Order: [id number] Performed: 01/31/2017 4:34 PM Status: Final result [...] 3:50 PM X-RAY ABDOMEN 1 VIEW Order: [id number] Performed: 03/19/2017 6:52 AM Status: Final result [...] and summary of old medical records (source: [employer]), as summarized in the body of the [...] possible opioid-sparing effects (Stevie Paulino et al.C [facility] [facility] [employer], (8):1655-70, 2007) and evidence that it can [...] The Fibro Manual, by Freddie Guadalupe MD [email or web address] Central sensitization Ilene Childs DNP, TERESA-C Adult Pain Service [facility] [address] [place] [address] Display Progress Note in MyChart: No documented [...]
--- OUTSIDE RECORDS SUMMARY | ~2020-03-09 | XMS | Encounter Summary ---
Demographics + + + | Address | [address] | | | [place] [address] | + + + | Home Phone [...] Team Providers + +------+ + | Care Folder Gluer Operator Name | Role | Phone | [...] + + | 10/07/ | Telephone | [facility] | Yosef Kenney MD | Wound infection | | 2018 | | Pain Center at | [address] | (Concern for DRG | | | | [facility] | [address] CENTER [place], | trial wound | | | | [address] | [place] [address] | infection) | | | | [place] for [facility] | [phone] | | | | | and Healing Building | | | | | | 15th Floor | | | | | | [place], [place] | | | | | | [address] | | | | | | [phone] | | | +--------+ + + + [...]
--- OUTSIDE RECORDS SUMMARY | ~2020-03-09 | XMS | Encounter Summary ---
Demographics + + + | Address | [address] | | | [place] [address] | + + + | Home Phone [...] Team Providers + +------+ + | Care Automation And Controls Supervisor Name | Role | Phone | [...] + + | 12/05/ | Surgery | [facility] INTRA OP | Alex Sanchez, | BILATERAL DORSAL | | 2019 | | [facility] | ,PhD [address] | ROOT GANGLION SPINAL | | | | and Healing Surgery | [address] | CORD STIMULATOR | | | | Center Admitting | [place], [place] | IMPLANT LUMBAR; | | | | Desk Located on the | [address] | POSTERIOR | | | | 4th floor [address] | [phone] | | | | | [address] [place], | | | | | | [place] [address] | | | +--------+---------+ + + + [...] s/p successful DRG trial lead system with [employer] on 09/25/2018. No changes in H&P, [...] OPERATIVE NOTE Date: December 05, 2018 Location: [facility] [place] | | | Tracie Farah [id number] :1990, presents to clinic | | | for: Dorsal root ganglion stimulator implant PROCEDURE: Dorsal | | | root ganglion stimulator implant PRE-OPERATIVE DIAGNOSIS: Complex | | | regional Pain syndrome type 1 of left lower extremity | | | POST-OPERATIVE DIAGNOSIS: Complex regional Pain syndrome type 1 of | | | left lower extremity ATTENDING PHYSICIAN: Alex Sanchez | | | WHARF ATTENDANT: Arben Valerio MD ANESTHESIA: sedation by IVIS Cole | | | Carmen, supervised by cook pickled meat Ilir Valdes. | | | FINDINGS: Appropriate [...] sedation. Ms. Farah was escorted to the [facility] | | | [place], where she [...] the | | | [facility] [employer] customer account representative. A test stimulation was performed [...] recovery. Images were saved, and sent to [employer]. | | | Alex Sanchez (attending) was present for the entire procedure. | | | Arben Valerio MD I was present for the entire procedure | | | (spinal cord stimulator implantation with DRG leads at left L4 and | | | L5) and all bocanegra elements of this visit. I reviewed the | | | documentation of the other PROCESSING LEAD providers and concur with | | | Iman's findings. I edited his note. Alex Sanchez, | | | ,PhD Laundry Operator Finishing Anesthesiology and Pain Management | | | [facility] | | + [...] + | JOSE ANTONIO MIN | [address] | [place] [address] | | | OF CARE TESTS | [...]
--- OUTSIDE RECORDS SUMMARY | ~2020-03-09 | XMS | Encounter Summary ---
Demographics + + + | Address | [address] | | | [place] [address] | + + + | Home Phone [...] | | Spasticity | [address] | [facility] [place] | | | | | Procedures | [place], [place] | [address] | | | | | CONSULT TO | [address] | Phone: | | | | | PAIN | Phone: | [phone] | | | | | MANAGEMENT | [phone] | Fax: | | | | | | Fax: | [phone] | | | | | | [phone] | | +--------+---------+ + + + + [...] | | MD Celia | MD Brendan [address] | | | | | Fibromyalgia | [address] | [address] | | | | | Spasticity | [address] | [address] | | | | | Epigastric | [place], [place] | Rd [place], | | | | | pain | [address] | [place] | | | | | Procedures | Phone: | [phone] | | | | | REQUEST TO | [phone] | Phone: | | | | | SURGERY | Fax: | [phone] | | | | | ENGINE LATHE OPERATOR | [phone] | Fax: | | | | | [place] INJECT | | [phone] | | | | | TRIGGER | | | | | | | POINT, 1 [place] | | | | | | | 2 [place] INJECT | | | | | | [...] Medicine | Diagnoses | Chasity, | Manager Generation Chh1 | | | | / Pain | Abdominal | MD Kenny | [address] | | | | Management | pain, | [address] | [address] Center | | | | | unspecified | [facility] | for Health | | | | | location | Rd | and Healing | | | | | Procedures | [place], [place] | Building | | | | | CONSULT TO | [address] | 1,15th Floor | | | | | PAIN | | [place], [place] | | | | | MANAGEMENT | | [address] | | | | | | | Phone: | | | | | | | [phone] | | | | | | | Fax: | | | | | | | [phone] | +--------+--------+ + + + + Encounter Details +--------+---------+ + + + | Date | Type | Department | Care Team | Description | +--------+---------+ + + + | 10/11/ | Office | [facility] Comprehensive | Vern Robertson, | Epigastric pain | | 2017 | Visit | Pain Center at | INSPECTOR BALANCE WHEEL MOTION [address] | (Primary Dx); | | | | [facility] | [place], [place] | Spasticity | | | | [address] | [address] | | | | | [facility] | [phone] | | | | | and Healing Building | | | | | | Floor | | | | | | [place], [place] | | | | | | [address] | | | | | | [phone] | | | +--------+---------+ + + + [...] true warrior! * Please sign up for LLLerHART. This is the best way to communicate with me. It will save you time in the long run. The procedure you discussed with your doctor is called: Trigger point injection of abdomina l scar. Please make sure this is scheduled with the Turbo Operator. PRE-PROCEDURE INSTRUCTIONS 1. Please bring a parts delivery driver with you as we may give you medications that impair your ability to drive. This is necessary even if you do not receive sedation. You may take a taxi or ri Visualnestcar if you are accompanied by a responsible [...] or blood thinning medications (other than aspirin), [facility] doctor who is doing your procedure will communicate with the provider who is prescribing y our anticoagulant therapy. If you do not have clear instructions on what to do with your an ticoagulant by 2 weeks before your procedure, please contact [facility] to cl arify your instructions. The phone number for questions or concerns is [phone]. * Consider Lidoderm topical or compound prescription [...] muscle hyper tonicity. * Consider increasing your Charlotte 3 fats. Charlotte-3 fats are precursors to mediators of inflammation [...] oil if approved by your PCP or veterinary technology instructor. * Eliminate High Fructose [place] Syrup and Sugar from your diet as [...] treatment plan. * Follow up with [facility] Comprehensive Pain Center as needed. It was [...] NP - 1 12/11/2016 1:15 PM PST [facility] Pain Center Return Visit Date: 10/11/2017 Chief Complaint Patient presents with Abdominal pain Back pain Foot pain History of Present Illness: Tracie Farah is a 27 year old female, whose last appoi ntment at the [facility] [place] was 07/11/17 with TERESA Clark, for a [...] She reports multiple diagnostic tests conducted at [facility] in [place], [place] including barium swallow and Hydrogen breath [...] Torodol shots: only form of symptom relief. 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 Goes to [employer] with a light load. Has been working at [employer], can' t work on [employer]. Has roommates. Allergies Allergen Reactions Morphine Anaphylaxis [...] by physician. Concentration is 150mg/mL. Compounded by [facility] ) LAMOTRIGINE 200 MG TABLET Take [...] SOLUTION Take as directed by [facility] Dig[facility]ive [facility]- 2 gallon [...] compound prescription of baclofen with PCP. * Branodn 500-1000 mg 3-4 times a day for [...] treatment plan. * Follow up with [facility] Center as needed. IGuillermo am scribing for Vern Robertson NP on 10/11/2017 I have reviewed and verified the above scribed note of my visit with this patient as record ed by Guillermo Hope. Vern Robertson NP PAIN C[facility] AT [facility] 15TH FLOOR [address] Mail Code: Ch15p [place] [address] documented in this e ncounter Plan of Treatment Not on filedocumented as of this encounter Visit Diagnoses + + | Diagnosis | + + | Epigastric pain - Primary Abdominal pain, epigastric | + + | Spasticity Abnormal involuntary movements | + + documented in this encounter
--- OUTSIDE RECORDS SUMMARY | ~2020-03-09 | XMS | Encounter Summary ---
Demographics + + + | Address | [address] | | | [place] [address] | + + + | Home Phone [...] Team Providers + +------+ + | Care Publication Manager Name | Role | Phone | [...] + + | 09/15/ | Telephone | [facility] Odom | Alex Sanchez, | Question | | 2018 | | Pain Center at | ,PhD [address] | | | | | [facility] | [place] [address] | | | | | [address] | [place], [place] | | | | | [facility] | [address] | | | | | and Martina [facility] | [phone] | | | | | Floor | | | | | | [place], [place] | | | | | | [address] | | | | | | [phone] | | | +--------+ + + + [...]
--- OUTSIDE RECORDS SUMMARY | ~2020-03-09 | XMS | Encounter Summary ---
Demographics + + + | Address | [address] | | | [place] [address] | + + + | Home Phone [...] Team Providers + +------+ + | Care Caterer Helper Name | Role | Phone | [...] Pain | | 2017 | | Center [place] [address] [address] | | | | | | [address] [facility] | | | | | | for Health and | | | | | | Healing, Building 2 | | | | | | [place], [place] | | | | | | [address] | | | | | | [phone] | | | +--------+--------+ + + + [...]
--- OUTSIDE RECORDS SUMMARY | ~2020-03-09 | XMS | Encounter Summary ---
Demographics + + + | Address | [address] | | | [place] [address] | + + + | Home Phone [...] Team Providers + +------+ + | Care Veterans' Coordinator Name | Role | Phone | + +------+ + | Justo Vazquez MD | PCP | | + +------+ + Encounter Details +--------+------+ + + + | Date | Type | Department | Care Team | Description | +--------+------+ + + + | 12/14/ | Lab | Laboratory at [facility] | | Complex regional | | 2018 | | [address] | | pain syndrome type 1 | | | | Center for [facility] | | of left lower | | | | and Healing, | | extremity; Muscle | | | | Building 2 | | pain | | | | [place], [place] | | | | | | [address] | | | | | | [phone] | | | +--------+------+ + + + [...] | + + + + + | [facility] | [address] | [place] [address] | | | LILLIAN CROSS | GUILLERMO [...]
--- OUTSIDE RECORDS SUMMARY | ~2020-03-09 | XMS | Encounter Summary ---
Demographics + + + | Address | [address] | | | [place] [address] | + + + | Home Phone [...] Team Providers + +------+ + | Care Coal Washer Name | Role | Phone | + +------+ + | Justo Vazquez MD | PCP | | + +------+ + Encounter Details +--------+ + + + + | Date | Type | Department | Care Team | Description | +--------+ + + + + | 04/03/ | Telephone | [facility] | Alex Sanchez, | | | 2019 | | Pain Center at | ,PhD [address] | | | | | [facility] | [address] | | | | | [address] | [place], [place] | | | | | [place] for [facility] | [address] | | | | | and [facility] | [phone] | | | | | 1,15th Floor | | | | | | [place], [place] | | | | | | [address] | | | | | | [phone] | | | +--------+ + + + [...]
--- OUTSIDE RECORDS SUMMARY | ~2020-03-09 | XMS | Encounter Summary ---
Demographics + + + | Address | [address] | | | [place] [address] | + + + | Home Phone [...] Team Providers + +------+ + | Care Release Of Information Clerk Name | Role | Phone | [...] left lower | [facility], [place] | [place] | | | | | extremity | [address] | [address] | | | | | Procedures | Phone: | Phone: | | | | | REQUEST TO | [phone] | [phone] | | | | | SURGERY | Fax: | Fax: | | | | | LANDFILL ATTENDANT | [phone] | [phone] | +--------+---------+ + + + + Physical [...] | | | | regional | ,PhD [address] | OTPTRehab | | | | | pain | [address] [facility] | [address] | | | | | syndrome | [facility] | [place] | | | | | type 1 of | Rd | [place] | | | | | left lower | [place], [place] | [address] | | | | | extremity | [address] | Phone: | | | | | Procedures | Phone: | [phone] | | | | | PHYSICAL | [phone] | Fax: | | | | | THERAPY | Fax: | [phone] | | | | | REFERRAL | [phone] | | +--------+--------+ + + + + [...] | | | | | Procedures | [place], [place] | Rd [place], | | | | | CONSULT TO | [address] | [place] | | | | | PAIN | | [address] | | | | | MANAGEMENT | | Phone: | | | | | | | [phone] | | | | | | | Fax: | | | | | | | [phone] | +--------+--------+ + + + + Encounter Details +--------+---------+ + + + | Date | Type | Department | Care Team | Description | +--------+---------+ + + + | 06/12/ | Office | [facility] Comprehensive | Alex Sanchez, | Complex regional | | 2018 | Visit | Pain Center at | ,PhD [address] [facility] | pain syndrome type 1 | | | | [facility] | [address] | of left lower | | | | [address] | [place], [place] | extremity (Primary | | | | Center for Health | [address] | Dx) | | | | and Healing Building | [phone] | | | | | 1,15th Floor | | | | | | [place], [place] | | | | | | [address] | | | | | | [phone] | | | +--------+---------+ + + + [...] in the future, please contact me via Hot Mix Mobile to request an order to schedule. The procedure you discussed with your doctor is called: SCS DRG TRIAL LUMBAR St. [facility] al. Please make sure this is scheduled with the Refinery Operator Coking. PRE-PROCEDURE INSTRUCTIONS 1. Please bring a recycle driver with you as we may give you medications that impair your ability to drive. This is necessary even if you do not receive sedation. You may take a taxi or ri [email or web address] if you are accompanied by a responsible [...] phone number for questions or concerns is [phone]. documented in this encounter Progress Notes Holly [...] MD,P hD - 06/12/2018 10:00 AM PDT [facility] Pain Center Return Visit Date: 06/12/2018 Chief Complaint Patient presents with Pain in left leg History of Present Illness: Tracie Farah is a 28 year old female, whose last appoi ntment at the [facility] was May 08, [...] way things were put in and her inkita wing, [the screws] rotated which created extra [...] that this mildly agitated her neck pain. 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 Goes to [employer] with a light load. Has been working at [employer], can' t work on [employer]. Has roommates. Allergies Allergen Reactions Morphine Anaphylaxis [...] by physician. Concentration is 150mg/mL. Compounded by [facility] ) KETOROLAC IM Inject into the [...] and summary of old medical records (source: [employer]), as summarized in the body of the note. Impression: Ms. Tracie aFrah is a 28 y.o. female with a [...] to send me a mess age via [employer] Mix Mobile to request referrals to acupuncture and massage [...] by Sonia Key. Alex Sanchez MD PhD Headlight Adjuster Anesthesiology and Pain Management [facility] documented in t his encounter [...] | | | presented. Final signature: Varinder Haridng MD 06/12/2018 | | | 12:15 PM [...] |Preliminary: Varinder Harding MD | |Dictation initiated: Vrainder Harding MD 06/12/2018 12:14 PM | + [...]
--- OUTSIDE RECORDS SUMMARY | ~2020-03-09 | XMS | Encounter Summary ---
Demographics + + + | Address | [address] | | | [place] [address] [...] Providers + +------+ + | Care Structural Rigger Name | Role | Phone | [...] | | 2017 | | Center at [facility] | | pain | | | | [facility] | | | | | | for Health and | | | | | | Healing, Building 2 | | | | | | [place], [place] | | | | | | [address] | | | | | | [phone] | | | +--------+ + + + [...]
--- OUTSIDE RECORDS SUMMARY | ~2020-03-09 | XMS | Encounter Summary ---
Demographics + + + | Address | [address] | | | [place] [address] | + + + | Home Phone [...] Providers + +------+ + | Care Spring Repairer Helper Hand Name | Role | Phone | + +------+ + | Justo Vazquez MD | PCP | | + +------+ + Encounter Details +--------+ + + + + | Date | Type | Department | Care Team | Description | +--------+ + + + + | 04/23/ | Anesthesia | Pain Center at [facility] | Aleta Rebollar MD [address] | | | 2019 | Event | [address] | [address] | | | | | [place] for Health | [facility] [place] | | | | | and [facility] | [address] | | | | | | [phone] | | | | | [place], [place] | | | | | | [address] | | | | | | [phone] | | | +--------+ + + + [...]
--- OUTSIDE RECORDS SUMMARY | ~2020-03-09 | XMS | Encounter Summary ---
Demographics + + + | Address | [address] | | | [place] [address] | + + + | Home Phone [...] Team Providers + +------+ + | Care Host/Hostess Head Name | Role | Phone | + +------+ + | Justo Vazquez MD | PCP | | + +------+ + Encounter Details +--------+ + + + + | Date | Type | Department | Care Team | Description | +--------+ + + + + | 12/02/ | Document-Sc | Health Information | Unknown . | | | 2017 | anned | Services [address] | | | | | | [address] | | | | | | Mailcode: OP17A | | | | | | [facility] | | | | | | [place], [place] | | | | | | [address] | | | | | | [phone] | | | +--------+ + + + [...]
--- OUTSIDE RECORDS SUMMARY | ~2020-03-09 | XMS | Encounter Summary ---
Demographics + + + | Address | [address] | | | [place] [address] | + + + | Home Phone [...] Providers + +------+ + | Care Battery Service Technician Name | Role | Phone [...] + + | 12/26/ | Refill | [facility] Comprehensive | Alex Sanchez, | Refill Request | | 2019 | | Pain Center at | ,PhD [address] [facility] | | | | | [facility] | [address] | | | | | [address] | [place], [place] | | | | | [facility] | [address] | | | | | and Martina [facility] | [phone] | | | | | Floor | | | | | | [place], [place] | | | | | | [address] | | | | | | [phone] | | | +--------+--------+ + + + [...]
--- OUTSIDE RECORDS SUMMARY | ~2020-03-09 | XMS | Encounter Summary ---
Demographics + + + | Address | [address] | | | [place] [address] | + + + | Home Phone [...] Team Providers + +------+ + | Care Seafood Service Team Member Name | Role | [...] (plan of care) | | | | [facility] | [address] | | | | | [address] | [place], [place] | | | | | [facility] | [address] | | | | | and [facility] Building | [phone] | | | | | 1,15th Floor | | | | | | [place], [place] | | | | | | [address] | | | | | | [phone] | | | +--------+ + + + [...]
--- OUTSIDE RECORDS SUMMARY | ~2020-03-09 | XMS | Encounter Summary ---
Demographics + + + | Address | [address] | | | [place] [address] | + + + | Home Phone [...] Team Providers + +------+ + | Care Triple Valve Mechanic Name | Role | Phone | + +------+ + | Justo Vazquez MD | PCP | | + +------+ + Encounter Details +--------+ + + + + | Date | Type | Department | Care Team | Description | +--------+ + + + + | 12/05/ | Procedure | [facility] | | | | 2019 | Pass | [place] [facility] | | | | | | and Healing Surgery | | | | | | Center Admitting | | | | | | Desk Located on the | | | | | | 4th floor [address] | | | | | | [address] [place], | | | | | | [place] [address] | | | +--------+ + + + [...]
--- OUTSIDE RECORDS SUMMARY | ~2020-03-09 | XMS | Encounter Summary ---
Demographics + + + | Address | [address] | | | [place] [address] | + + + | Home Phone [...] + +------+ + | Care Sheet Metal Shop Helper Name | Role | Phone [...] Medical Records | | 2017 | | [place] at [facility] [address] | | Review | | | | [facility] | | | | | | for Health and | | | | | | [facility] 2 | | | | | | [place], [place] | | | | | | [address] | | | | | | [phone] | | | +--------+ + + + [...]
--- OUTSIDE RECORDS SUMMARY | ~2020-03-09 | XMS | Encounter Summary ---
Demographics + + + | Address | [address] | | | [place] [address] | + + + | Home Phone [...] Team Providers + +------+ + | Care Efficiency Clerk Name | Role | Phone | [...] 2017 | | Pain Center at | TEST LEAD APPLICATION TESTING [address] | | | | | [facility] | Ave [place], [place] | | | | | [address] | [address] | | | | | [facility] | [phone] | | | | | and [facility] | | | | | | 15 Floor | | | | | | [place], [place] | | | | | | [address] | | | | | | [phone] | | | +--------+ + + + [...]
--- OUTSIDE RECORDS SUMMARY | ~2020-03-09 | XMS | Encounter Summary ---
Demographics + + + | Address | [address] | | | [place] [address] | + + + | Home Phone [...] Providers + +------+ + | Care Assistant Banquet Manager Name | Role | Phone | [...] [facility] [address] | MD Melissa | | | | | [address] [facility] | | | | | | for Health and | | | | | | [facility], Building 2 | | | | | | [place], [place] | | | | | | [address] | | | | | | [phone] | | | +--------+ + + + [...]
--- OUTSIDE RECORDS SUMMARY | ~2020-03-09 | XMS | Encounter Summary ---
Demographics + + + | Address | [address] | | | [place] [address] | + + + | Home Phone [...] Team Providers + +------+ + | Care Park Warden Name | Role | Phone | + +------+ + | Justo Vazquez MD | PCP | | + +------+ + Encounter Details +--------+ + + + + | Date | Type | Department | Care Team | Description | +--------+ + + + + | 03/23/ | MyChart | [facility] Comprehensive | Ilene Bright, | Welcome | | 2017 | Encounter | Pain Center at | WEBSITE DEVELOPER [address] | | | | | [facility] | Ave [place], [place] | | | | | [address] | [address] | | | | | [place] for [facility] | [phone] | | | | | and [facility] | | | | | | 1,15th Floor | | | | | | [place], [place] | | | | | | [address] | | | | | | [phone] | | | +--------+ + + + [...]
--- OUTSIDE RECORDS SUMMARY | ~2020-03-09 | XMS | Encounter Summary ---
Demographics + + + | Address | [address] | | | [place] [address] | + + + | Home Phone [...] Providers + +------+ + | Care Tow Operator Name | Role | Phone | [...] | | | 2019 | Event | [facility] | MD Juan [address] | | | | | and Healing Surgery | [address] | | | | | Center Admitting | [place], [place] | | | | | Desk Located on the | [address] | | | | | 4th floor [address] | [phone] | | | | | [address] [place], | | | | | | [place] [address] | Arben Valerio MD | | | | | | [address] | | | | | | [address] | | | | | | [place], [place] | | | | | | [address] | | | | | | [phone] | | | | | | | [...]
--- OUTSIDE RECORDS SUMMARY | ~2020-03-09 | XMS | Encounter Summary ---
Demographics + + + | Address | [address] | | | [place] [address] | + + + | Home Phone [...] 2015 | | Center at [facility] [address] | MD Melissa | | | | | [facility] | | | | | | for Health and | | | | | | Healing, [facility] 2 | | | | | | [place], [place] | | | | | | [address] | | | | | | [phone] | | | +--------+ + + + [...]
--- OUTSIDE RECORDS SUMMARY | ~2020-03-09 | XMS | Encounter Summary ---
Demographics + + + | Address | [address] | | | [place] [address] | + + + | Home Phone [...] + +------+ + | Care Director Regulatory Affairs Name | Role | Phone [...] | Diagnoses | Beulah | Edu Pt Job Service Consultant | | | | Therapy | CRPS | Janak Martinez MD | [address] | | | | | (complex | [address] | | | | | regional | [address] | Mailcode: | | | | | pain | Mailstop | [facility] | | | | | syndrome), | [id number] | for Health | | | | | lower limb | [place], [place] | and Healing, | | | | | Gait | [address] | Building 1 | | | | | disturbance | Phone: | [place], [place] | | | | | Muscle pain | [phone] | [address] | | | | | Procedures | Fax: | Phone: | | | | | PHYSICAL | [phone] | [phone] | | | | | THERAPY | [...] | | | [place] | Ave [place], [place] | syndrome), lower | | | | [address] | [phone] | limb (Primary Dx) | | | | [place] for [facility] | | | | | | and Healing, | | | | | | Building 1, | | | | | | Floor [place], [place] | | | | | | [address] | | | | | | [phone] | | | +--------+---------+ + + + [...] might be different f rom the original. [id number] BRODY FARAH Date of : 1990 Start of care: 02/14/2012 Date of onset: 02/14/2012 Referring/Attending Practitioner: Janak Riojas MD . Primary/Referral Diagnosis/ICD-9: 355.71B CRPS (complex regional pain syndrome), lower limb Insurance: [facility] [email or web address] [facility] Plan: BCBS OUT OF STATE Product Type: PP O Service period from: 02/14/2012 to: 08/12/2012 Number visits used/authorized: 03/25 [facility] PHYSICAL THERAPY PROGRESS NOTE SUBJECTIVE: [...] any change in their status. Guillermo Sanon [facility] Outpatient Rehabilitation Services Mailcode: Ch3p [address] [facility], [address] [place] [address] documented in this encounter Plan of Treatment Not on filedocumented as of this encounter Procedures + +--------+ + + + | Procedure Name | Priori | Date/Time | Associated Diagnosis | Comments | | | ty | | | | + +--------+ + + + | [facility] MANUAL THER | Routin | 06/05/2012 | CRPS (complex | | | TECH,1+REGIONS,EA 15 | e | 5:15 PM | regional pain | | | MIN | | PDT | syndrome), lower | | | | | | limb | | + +--------+ + + + | [facility] THERAPEUTIC | Routin | 06/05/2012 | CRPS [...]
--- OUTSIDE RECORDS SUMMARY | ~2020-03-09 | XMS | Encounter Summary ---
Demographics + + + | Address | [address] | | | [place] [address] | + + + | Home Phone [...] Team Providers + +------+ + | Care Sliver Handler Name | Role | Phone | + +------+ + | Allegra Gandhi | PCP | | + +------+ + Encounter Details +--------+ + + + + | Date | Type | Department | Care Team | Description | +--------+ + + + + | 02/13/ | Outside | UNKNOWN DEPARTMENT | Other, Faculty | | | 2011 | Records | [address] | [phone] | | | | | [address] | | | | | | [place], [place] | | | | | | [address] | | | +--------+ + + + [...]
--- OUTSIDE RECORDS SUMMARY | ~2020-03-09 | XMS | Encounter Summary ---
Demographics + + + | Address | [address] | | | [place] [address] | + + + | Home Phone [...] Providers + +------+ + | Care Television Specialist Name | Role | Phone | + +------+ + | Justo Vazquez MD | PCP | | + +------+ + Encounter Details +--------+ + + + + | Date | Type | Department | Care Team | Description | +--------+ + + + + | 12/05/ | Pharmacy | [facility] | | | | 2019 | Visit | & [facility] | | | | | | [address] | | | | | | Mailcode: [place] | | | | | | [facility] and | | | | | | Healing, Building 1 | | | | | | [place], [place] | | | | | | [address] | | | | | | [phone] | | | +--------+ + + + [...]
--- OUTSIDE RECORDS SUMMARY | ~2020-03-09 | XMS | Encounter Summary ---
Demographics + + + | Address | [address] | | | [place] [address] | + + + | Home Phone [...] Providers + +------+ + | Care Field Tax Auditor Name | Role | Phone | + +------+ + | Justo Vazquez MD | PCP | | + +------+ + Encounter Details +--------+ + + + + | Date | Type | Department | Care Team | Description | +--------+ + + + + | 03/12/ | Telephone | [facility] | Alex Sanchez, | | | 2019 | | Pain Center at | ,PhD [address] | | | | | [facility] | [address] | | | | | [address] | [place], [place] | | | | | [place] for [facility] | [address] | | | | | and [facility] | [phone] | | | | | 1,15th Floor | | | | | | [place], [place] | | | | | | [address] | | | | | | [phone] | | | +--------+ + + + [...]
--- OUTSIDE RECORDS SUMMARY | ~2020-03-09 | XMS | Encounter Summary ---
Demographics + + + | Address | [address] | | | [place] [address] | + + + | Home Phone [...] Providers + +------+ + | Care Research Specialist Name | Role | Phone | + +------+ + | Allegra Gandhi | PCP | | + +------+ + Encounter Details +--------+ + + + + | Date | Type | Department | Care Team | Description | +--------+ + + + + | 08/02/ | Results | [facility] | Janak Riojas, | | | 2011 | Only | Pain Center at | MD [address] | | | | | [facility] | [facility] [id number] | | | | | [address] | [place], [place] | | | | | Center for Health | [address] | | | | | and [facility] | [phone] | | | | | 15th Floor | | | | | | [place], [place] | | | | | | [address] | | | | | | [phone] | | | +--------+ + + + [...]
--- OUTSIDE RECORDS SUMMARY | ~2020-03-09 | XMS | Encounter Summary ---
Demographics + + + | Address | [address] | | | [place] [address] | + + + | Home Phone [...] Team Providers + +------+ + | Care Rubber Vulcanizing Machine Operator Name | Role | Phone [...] [place] | | | | | | [address] | | | +--------+ + + + [...]
--- OUTSIDE RECORDS SUMMARY | ~2020-03-09 | XMS | Encounter Summary ---
Demographics + + + | Address | [address] | | | [place] [address] | + + + | Home Phone [...] Providers + +------+ + | Care Mechanical Product Design Engineer Name | Role | Phone | + +------+ + | Allegra Chaudhary | PCP | | + +------+ + Encounter Details +--------+ + + + + | Date | Type | Department | Care Team | Description | +--------+ + + + + | 10/21/ | Telephone | [facility] | Antony Beltre, | | | 2014 | | [place] [address] [address] | [address] | | | | | [address] | [place] [address] | | | | | for Health and | [phone] | | | | | [facility], [facility] 2 | | | | | | [place], [place] | | | | | | [address] | | | | | | [phone] | | | +--------+ + + + [...]
--- OUTSIDE RECORDS SUMMARY | ~2020-03-09 | XMS | Encounter Summary ---
Demographics + + + | Address | [address] | | | [place] [address] | + + + | Home Phone [...] Team Providers + +------+ + | Care Warning Analyst Name | Role | Phone | [...] | | | Management | Chronic | Allgera Nieto, | Dale Martinez MD | | | | | pain Reflex | [place] | [address] | | | | | sympathetic | [place] | [address]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 | FAMILY | Mailstop | | | | | of lower | MEDICINE P | [address] | | | | | limb | [address] | [place], [place] | | | | | | [place], | [address] | | | | | | [place] [address] | Phone: | | | | | | Phone: | [phone] | | | | | | [phone] | Fax: | | | | | | Fax: | [phone] | | | | | | [phone] | | +--------+--------+ + + + + [...] | regional pain | | | | [facility] | [facility] [id number] | syndrome), lower | | | | [address] | [place], [place] | limb (Primary Dx) | | | | [place] for Health | [address] | | | | | and Healing Building | [phone] | | | | | 1,15th Floor | | | | | | [place], [place] | | | | | | [address] | | | | | | [phone] | | | +--------+---------+ + + + [...] saw and evaluated the patient with Fellow hNan Guo [facility], who conducted the initial history. I reviewed the history in det ail and edited his note. I was present for the examination and formulation portions of the encounter. I agree with the findings and the plan of care as documented in our notes. DALE CANTU MD Night Shift Supervisor, [facility] Electrical Tryout Person, Pain Medicine Professor, Anesthesiology & Perioperative Medicine [...] physical activity and social withdrawal enok Gutierrez, [facility] - 08/04/2012 7:25 AM PDTFormatting of this note might be different from the origi nal. [facility] Return Visit with Dr. Dale [...] has been treated at the [facility] for lower limb pain with the following [...] and a pain drawing which I reviewed. [facility] Brief Pain Inventory: [...] by the [facility] was reviewed. Additional Review of Systems: 1. [...] multiple programs with both [facility] programs, however it appears that it [...] bath today, OK to shower. HENOK GUO [facility] documented in this en counter Plan of Treatment Not on filedocumented as of this encounter Visit Diagnoses + + | Diagnosis | + + | CRPS (complex regional pain syndrome), lower limb - Primary Causalgia of lower limb | + + documented in this encounter
--- OUTSIDE RECORDS SUMMARY | ~2020-03-09 | XMS | Encounter Summary ---
Demographics + + + | Address | [address] | | | [place] [address] | + + + | Home Phone [...] Team Providers + +------+ + | Care Cut Off Saw Set Up Operator Name | Role | [...] | Center at [facility] [address] | MD [address] | | | | | [address] Center | [facility] [place] | | | | | for Health and | [address] | | | | | Healing, Building 2 | [phone] | | | | | [place], [place] | | | | | | [address] | | | | | | [phone] | | | +--------+ + + + [...]
--- OUTSIDE RECORDS SUMMARY | ~2020-03-09 | XMS | Encounter Summary ---
Demographics + + + | Address | [address] | | | [place] [address] | + + + | Home Phone [...] Team Providers + +------+ + | Care Affiliate Marketing Specialist Name | Role | Phone | [...] | | | | | | [place], [place] | | | | | | [address] | | | +--------+ + + + [...]
--- OUTSIDE RECORDS SUMMARY | ~2020-03-09 | XMS | Encounter Summary ---
Demographics + + + | Address | [address] | | | [place] [address] | + + + | Home Phone [...] Team Providers + +------+ + | Care Rivet Tapping Machine Operator Name | Role | Phone [...] | | | | | [place], | | | | | | [place] [address] | | | +--------+ + + + [...]
--- OUTSIDE RECORDS SUMMARY | ~2020-03-09 | XMS | Encounter Summary ---
Demographics + + + | Address | [address] | | | [place] [address] | + + + | Home Phone [...] Team Providers + +------+ + | Care Aquatics Director Name | Role | Phone | [...] Oliveira | | 2011 | IP | [address] | | House - Approved | | | | [place], | | | | | | [place] [address] | | | +--------+ + + + [...]
--- OUTSIDE RECORDS SUMMARY | ~2020-03-09 | XMS | Encounter Summary ---
Demographics + + + | Address | [address] | | | [place] [address] | + + + | Home Phone [...] Providers + +------+ + | Care Physical Damage Appraiser Name | Role | Phone | [...] | | | [address] | [facility] | | | | | [place], [place] | [place], [place] | | | | | [address] | [address] | | | | | | [phone] | | | | | | | [...] | + +--------+ + + + | FASHION SUPERVISOR MISC PROCEDURE | Routin | 12/27/2017 | Complex regional | Results for this | | | e | 3:28 PM | pain syndrome type 1 | procedure are in the | | | | PST | of left lower | results section. | | | | | extremity | | + +--------+ + + + documented in this encounter Results [facility] MISC PROCEDURE (12/27/2017 3:28 PM PST) [...]
--- OUTSIDE RECORDS SUMMARY | ~2020-03-09 | XMS | Encounter Summary ---
Demographics + + + | Address | [address] | | | [place] [address] | + + + | Home Phone [...] Providers + +------+ + | Care Corporate Director Name | Role | Phone | [...] Medical Records | | 2017 | | [facility] [address] | | Review | | | | [facility] | | | | | | for Health and | | | | | | [facility], [facility] 2 | | | | | | [place], [place] | | | | | | [address] | | | | | | [phone] | | | +--------+ + + + [...]
--- OUTSIDE RECORDS SUMMARY | ~2020-03-09 | XMS | Encounter Summary ---
Demographics + + + | Address | [address] | | | [place] [address] | + + + | Home Phone [...] Team Providers + +------+ + | Care Aurist Name | Role | Phone | + [...] | Orthopedics | Diagnoses | Sdrulla, | [place], | | | | | Complex | [place], | Ranjeet Odom MD | | | | | regional | ,PhD [address] | [address] | | | | | pain | [address] | [address] | | | | | syndrome | [place] | [place], [place] | | | | | type 1 of | Rd | [address] | | | | | left lower | [place], [place] | Phone: | | | | | extremity | [address] | [phone] | | | | | Procedures | Phone: | Fax: | | | | | CONSULT TO | [phone] | [phone] | | | | | ORTHOPEDICS | Fax: | | | | | | AND | [phone] | | | | | | REHABILITATI [...] | ankle results) | | | | [facility] | [address] | | | | | [address] | [place], [place] | | | | | [facility] | [address] | | | | | and Healing Building | [phone] | | | | | ,15th Floor | | | | | | [place], [place] | | | | | | [address] | | | | | | [phone] | | | +--------+ + + + [...]
--- OUTSIDE RECORDS SUMMARY | ~2020-03-09 | XMS | Encounter Summary ---
Demographics + + + | Address | [address] | | | [place] [address] | + + + | Home Phone [...] Providers + +------+ + | Care Network Architect Manager Name | Role | Phone | + +------+ + | Justo Vazquez MD | PCP | | + +------+ + Encounter Details +--------+ + + + + | Date | Type | Department | Care Team | Description | +--------+ + + + + | 03/12/ | Telephone | [facility] | Alex Sanchez, | | | 2019 | | Pain Center at | ,PhD [address] | | | | | [facility] | [address] | | | | | [address] | [place], [place] | | | | | [place] for [facility] | [address] | | | | | and [facility] | [phone] | | | | | 1,15th Floor | | | | | | [place], [place] | | | | | | [address] | | | | | | [phone] | | | +--------+ + + + [...]
--- OUTSIDE RECORDS SUMMARY | ~2020-03-09 | XMS | Encounter Summary ---
Demographics + + + | Address | [address] | | | [place] [address] | + + + | Home Phone [...] Providers + +------+ + | Care Occupational Health Nurse Supervisor Name | Role | Phone | [...] | Encounter | Center at [facility] [address] | MD Melissa | | | | | [address] [facility] | | | | | | for Health and | | | | | | Healing, Building 2 | | | | | | [place], [place] | | | | | | [address] | | | | | | [phone] | | | +--------+ + + + [...]
--- OUTSIDE RECORDS SUMMARY | ~2020-03-09 | XMS | Encounter Summary ---
Demographics + + + | Address | [address] | | | [place] [address] [...] Providers + +------+ + | Care Senior Property Manager Name | Role | Phone | [...] | | , | [address] | [place] for | | | | | unspecified | [address] | Health and | | | | | constipation | [place], [place] | Healing, | | | | | type | [address] | Building 2 | | | | | Abdominal | | [place], [place] | | | | | pain, | | [address] | | | | | unspecified | | Phone: | | | | | location | | [phone] | | | | | Procedures | | Fax: | | | | | CONSULT TO | | [phone] | | | | | GI PROCEDURE [...] Center at [facility] [address] | MD Melissa | Vomiting (Bile) | | | | [address] | | | | | | for Health and | | | | | | Healing, Building 2 | | | | | | [place], [place] | | | | | | [address] | | | | | | [phone] | | | +--------+ + + + [...]
--- OUTSIDE RECORDS SUMMARY | ~2020-03-09 | XMS | Encounter Summary ---
Demographics + + + | Address | [address] | | | [place] [address] | + + + | Home Phone [...] Providers + +------+ + | Care Top Collar Maker Name | Role | Phone | [...] | | Pain Center at | ,PhD [address] [facility] | follow-up | | | | [facility] | [address] | | | | | [address] | [place], [place] | | | | | [facility] | [address] | | | | | and [facility] | [phone] | | | | | 15th Floor | | | | | | [place], [place] | | | | | | [address] | | | | | | [phone] | | | +--------+ + + + [...]
--- OUTSIDE RECORDS SUMMARY | ~2020-03-09 | XMS | Encounter Summary ---
Demographics + + + | Address | [address] | | | [place] [address] | + + + | Home Phone [...] Providers + +------+ + | Care Marine Photographer Name | Role | Phone | + +------+ + | Allegra Gandhi | PCP | | + +------+ + Encounter Details +--------+ + + + + | Date | Type | Department | Care Team | Description | +--------+ + + + + | 03/01/ | Results | [facility] | Janak Riojas, | | | 2011 | Only | Pain Center at | MD [address] [facility] | | | | | [facility] | [facility] 6[address]608 | | | | | [address] | [place], [place] | | | | | Center for Health | [address] | | | | | and [facility] | [phone] | | | | | 15th Floor | | | | | | [place], [place] | | | | | | [address] | | | | | | [phone] | | | +--------+ + + + [...]
--- OUTSIDE RECORDS SUMMARY | ~2020-03-09 | XMS | Encounter Summary ---
Demographics + + + | Address | [address] | | | [place] [address] | + + + | Home Phone [...] + +------+ + | Care Motor Vehicle Parts Interpreter Name | Role | Phone [...] | 09/30/ | Telephone | [facility] Ilene | [place], | Phone communication | | 2017 | | Pain Center at | SUPERVISOR [employer] [address] | | | | | [facility] | Ave [place], [place] | | | | | [address] | [address] | | | | | [facility] | [phone] | | | | | and [facility] | | | | | | 1,15th Floor | | | | | | [place], [place] | | | | | | [address] | | | | | | [phone] | | | +--------+ + + + [...]
--- OUTSIDE RECORDS SUMMARY | ~2020-03-09 | XMS | Encounter Summary ---
Demographics + + + | Address | [address] | | | [place] [address] | + + + | Home Phone [...] Team Providers + +------+ + | Care Dietetic Assistant Name | Role | Phone | + +------+ + | Justo Vazquez MD | PCP | | + +------+ + Encounter Details +--------+ + + + + | Date | Type | Department | Care Team | Description | +--------+ + + + + | 05/05/ | Documentati | [facility] | Alex Sanchez, | | | 2018 | on | Pain Center at | ,PhD [address] | | | | | [facility] | [address] | | | | | [address] | [place], [place] | | | | | [place] for [facility] | [address] | | | | | and [facility] | [phone] | | | | | 1,15th Floor | | | | | | [place], [place] | | | | | | [address] | | | | | | [phone] | | | +--------+ + + + [...]
--- OUTSIDE RECORDS SUMMARY | ~2020-03-09 | XMS | Encounter Summary ---
Demographics + + + | Address | [address] | | | [place] [address] | + + + | Home Phone [...] Providers + +------+ + | Care Assistant Kitchen Manager Name | Role | Phone | [...] jorge | | | | | [facility] | [place], [place] | | | | | for Health and | [address] | | | | | Healing, Building 1, | [phone] | | | | | [facility] Floor | | | | | | [facility] [place] | | | | | | [address] | | | | | | [phone] | | | +--------+ + + + [...] Note | + + | Service Account, Cheggin Res In Interface - 03/08/2018 9:42 AM [...]
--- OUTSIDE RECORDS SUMMARY | ~2020-03-09 | XMS | Encounter Summary ---
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 Surgery check-in location: [facility] Day Stay - [place] for [facility] and [facility], 4th floor Surgery Check in Time: The [...] it is after office hours, call the [facility] flatbed owner operator at [phone] and ask them to page him or h er. documented in this encounter Progress Notes Catie Smart NP - 11/27/2018 2:05 PM PST PREOPERATIVE CONSULT NOTE Author: Catie Smart NP Referring Physician: [place] Sanchez MD Primary Care Provider: Justo Vazquez MD Reason for Consult: Preoperative evaluation and risk assessment Proposed Procedure/Date: implant SCS; 12/05/2018 Proposed Procedure Location: [facility] HISTORY OF PRESENT ILLNESS: Tracie [...] renal failure no electrolyte abnormalities no dialysis Urology/Tape Edge Machine Operator: Interstitial cystitis LMP: irreg bleeding, ~11/14/2018, [...] oral recon soln Take as directed by [facility] [employer] [facility]- 2 gallon bowel [...] Trial spinal cord stimulator leads 08/02/2012 . [facility], Surgeon: Janak Riojas MD Cholecystectomy [...] patient is a lso currently scheduled at [facility] [place] and is meeting inclusion [...] to this patient's care. Catie Smart NP [facility] PBB PREOPERATIVE MEDICINE CLINIC AT [facility] 4TH FLOOR [address] [facility] [address] I advised the patient regarding NPO [...]
--- OUTSIDE RECORDS SUMMARY | ~2020-03-09 | XMS | Encounter Summary ---
Demographics + + + | Address | [address] | | | [place] [address] | + + + | Home Phone [...] Team Providers + +------+ + | Care Frame Repairer Name | Role | Phone | + +------+ + | Justo Vazquez MD | PCP | | + +------+ + Encounter Details +--------+ + + + + | Date | Type | Department | Care Team | Description | +--------+ + + + + | 01/12/ | Telephone | [facility] | Kenny Gaspar MD | | | 2016 | | [place] [address] [address] | | | | | | [address] | | | | | | for Health and | | | | | | [facility] 2 | | | | | | [place], [place] | | | | | | [address] | | | | | | [phone] | | | +--------+ + + + [...]
--- OUTSIDE RECORDS SUMMARY | ~2020-03-09 | XMS | Encounter Summary ---
Demographics + + + | Address | [address] | | | [place] [address] | + + + | Home Phone [...] Providers + +------+ + | Care Head Boys Tennis Coach Name | Role | Phone | [...] | Center at [facility] [address] | MD [address] | | | | | [address] | [facility] [place] | | | | | for Health and | [address] | | | | | Healing, Building 2 | [phone] | | | | | [place], [place] | | | | | | [address] | | | | | | [phone] | | | +--------+ + + + [...]
--- OUTSIDE RECORDS SUMMARY | ~2020-03-09 | XMS | Encounter Summary ---
Demographics + + + | Address | [address] | | | [place] [address] | + + + | Home Phone [...] Team Providers + +------+ + | Care Tucking Machine Operator Name | Role | Phone [...] 2016 | | Center at [facility] [address] | [address] | | | | | [address] [facility] | [address] | | | | | [facility] and | [place], [place] | | | | | [facility] 2 | [address] | | | | | [place], [place] | [phone] | | | | | [address] | | | | | | [phone] | | | +--------+ + + + [...]
--- OUTSIDE RECORDS SUMMARY | ~2020-03-09 | XMS | Encounter Summary ---
Demographics + + + | Address | [address] | | | [place] [address] | + + + | Home Phone [...] Team Providers + +------+ + | Care Microbiology Coordinator Name | Role | Phone | [...] + + | 12/14/ | Hospital | [facility] GI PROCEDURE | Bruna Quinones, | | | 2017 | Encounter | [address] | MD [address] | | | | | Ave Mailcode: [facility] | [place], [place] | | | | | [facility] | [address] | | | | | Health and Healing, | [phone] | | | | | [place] [address] | | | | | | [place], [place] | | | | | | [address] | | | | | | [phone] | | | +--------+ + + + [...] Discharge Instructions Instructions Darlin Doyle RN - 12/14/2016[facility] Instructions after Colonoscopy You may resume [...] on weekends and holidays call the Hospital Architecture Department Chair toll free [phone]- [phone] Ext. [phone] or and have the GI doctor assistant production editor paged. The provider who performed your procedure [...] Farah is a 26 y.o. female MR# [id number] presents today for colonoscopy NPO since midnight [...]
--- OUTSIDE RECORDS SUMMARY | ~2020-03-09 | XMS | Encounter Summary ---
Demographics + + + | Address | [address] | | | [place] [address] | + + + | Home Phone [...] Providers + +------+ + | Care Lathe Puller Name | Role | Phone | [...] + + | 09/15/ | Telephone | [facility] | Alex Sanchez, | Question | | 2018 | | Pain Center at | ,PhD [address] | | | | | [facility] | [address]iana | | | | | [address] | [place], [place] | | | | | [facility] | [address] | | | | | and [facility] | [phone] | | | | | Floor | | | | | | [place], [place] | | | | | | [address] | | | | | | [phone] | | | +--------+ + + + [...]
--- OUTSIDE RECORDS SUMMARY | ~2020-03-09 | XMS | Encounter Summary ---
Demographics + + + | Address | [address] | | | [place] [address] | + + + | Home Phone [...] Providers + +------+ + | Care Cake Washer Name | Role | Phone | + +------+ + | Justo Vazquez MD | PCP | | + +------+ + Encounter Details +--------+ + + + + | Date | Type | Department | Care Team | Description | +--------+ + + + + | 01/02/ | Telephone | [facility] | Ilene Bright, | | | 2019 | | Pain Center at | CLINIC DIRECTOR [address] | | | | | [facility] | Ave [place], [place] | | | | | [address] | [address] | | | | | [place] for [facility] | [phone] | | | | | and [facility] | | | | | | 1,15th Floor | | | | | | [place], [place] | | | | | | [address] | | | | | | [phone] | | | +--------+ + + + [...]
--- OUTSIDE RECORDS SUMMARY | ~2020-03-09 | XMS | Encounter Summary ---
Demographics + + + | Address | [address] | | | [place] [address] [...] Providers + +------+ + | Care Insole Stiffener Name | Role | Phone | + [...] | 10/07/ | Telephone | [facility] | Yosef Kenney MD | Wound infection | | 2018 | | Pain Center at | [address] | (Concern for DRG | | | | [facility] | [address] [place], | trial wound | | | | [address] | [place] [address] | infection) | | | | [place] for [facility] | [phone] | | | | | and Healing Building | | | | | | 15th Floor | | | | | | [place], [place] | | | | | | [address] | | | | | | [phone] | | | +--------+ + + + [...]
--- OUTSIDE RECORDS SUMMARY | ~2020-03-09 | XMS | Encounter Summary ---
Demographics + + + | Address | [address] | | | [place] [address] | + + + | Home Phone [...] Team Providers + +------+ + | Care Fertilizer Mixer Name | Role | Phone | [...] | Pain | | 2016 | | [place] [address] | | | | | | [facility] | | | | | | for Health and | | | | | | Healing, Building 2 | | | | | | [place], [place] | | | | | | [address] | | | | | | [phone] | | | +--------+ + + + [...]
--- OUTSIDE RECORDS SUMMARY | ~2020-03-09 | XMS | Encounter Summary ---
Demographics + + + | Address | [address] | | | [place] [address] | + + + | Home Phone [...] Providers + +------+ + | Care Surveillance Investigator Name | Role | Phone | + +------+ + | Justo Vazquez MD | PCP | | + +------+ + Encounter Details +--------+ + + + + | Date | Type | Department | Care Team | Description | +--------+ + + + + | 12/07/ | Telephone | [facility] | Alex Sanchez, | | | 2019 | | Pain Center at | ,PhD [address] | | | | | [facility] | [address] | | | | | [address] | [place], [place] | | | | | [place] for [facility] | [address] | | | | | and [facility] | [phone] | | | | | 1,15th Floor | | | | | | [place], [place] | | | | | | [address] | | | | | | [phone] | | | +--------+ + + + [...]
--- OUTSIDE RECORDS SUMMARY | ~2020-03-09 | XMS | Encounter Summary ---
Demographics + + + | Address | [address] | | | [place] [address] | + + + | Home Phone [...] Providers + +------+ + | Care Clinical Trial Head Name | Role | Phone | + +------+ + | Justo Vazquez MD | PCP | | + +------+ + Encounter Details +--------+ + + + + | Date | Type | Department | Care Team | Description | +--------+ + + + + | 09/25/ | Hospital | Radiology/Imaging | Aleta Rebollar MD [address] | | | 2018 | Encounter | Lab at [facility] [address] | | | | | [address] [facility] | [place], [place] | | | | | for Health and | [address] | | | | | [facility], Building 1, | [phone] | | | | | [facility] Floor | | | | | | [facility] [place] | | | | | | [address] | | | | | | [phone] | | | +--------+ + + + [...]
--- OUTSIDE RECORDS SUMMARY | ~2020-03-09 | XMS | Encounter Summary ---
Demographics + + + | Address | [address] | | | [place] [address] | + + + | Home Phone [...] Team Providers + +------+ + | Care Incising Machine Operator Name | Role | Phone [...] | pain, | [address] | [address] | | | | | unspecified | [address] | [address] | | | | | abdominal | Rd | [facility] [place] | | | | | location | [facility] [place] | [address] | | | | | Pain of | [address] | Phone: | | | | | upper | | [phone] | | | | | abdomen | | Fax: | | | | | Complex | | [phone] | | | | | regional | [...] | | | | | | | PUBLIC HEALTH MICROBIOLOGIST | | | +--------+---------+ + + + + Reason for Visit + + + | Reason | Comments | + + + | Procedure | | + + + Encounter Details +--------+ + + + + | Date | Type | Department | Care Team | Description | +--------+ + + + + | 08/30/ | Telephone | [facility] | Ilene Bright, | Procedure | | 2017 | | Pain Center at | VICE PRESIDENT OF SOFTWARE ENGINEERING [address] | | | | | [facility] | Ave [place], [place] | | | | | [address] | [address] | | | | | [facility] | [phone] | | | | | and [facility] Building | | | | | | 1,15th Floor | | | | | | [place], [place] | | | | | | [address] | | | | | | [phone] | | | +--------+ + + + [...]
--- OUTSIDE RECORDS SUMMARY | ~2020-03-09 | XMS | Encounter Summary ---
Demographics + + + | Address | [address] | | | [place] [address] | + + + | Home Phone [...] Team Providers + +------+ + | Care Trimmer Buffing Wheel Name | Role | Phone | + +------+ + | Justo Vazquez MD | PCP | | + +------+ + Encounter Details +--------+ + + + + | Date | Type | Department | Care Team | Description | +--------+ + + + + | 01/02/ | Telephone | [facility] Comprehensive | Ilene Bright, | | | 2019 | | Pain Center at | MOMD TEACHER [address] | | | | | [facility] | Ave [place], [place] | | | | | [address] | [address] | | | | | [place] for [facility] | [phone] | | | | | and [facility] | | | | | | 1,15th Floor | | | | | | [place], [place] | | | | | | [address] | | | | | | [phone] | | | +--------+ + + + [...]
--- OUTSIDE RECORDS SUMMARY | ~2020-03-09 | XMS | Encounter Summary ---
Demographics + + + | Address | [address] | | | [place] [address] | + + + | Home Phone [...] Providers + +------+ + | Care Boiler Operator Helper Name | Role | Phone [...] Rd | | | | | | [place], [place] | | | | | | [address] | | | +--------+ + + + [...]
--- OUTSIDE RECORDS SUMMARY | ~2020-03-09 | XMS | Encounter Summary ---
Demographics + + + | Address | [address] | | | [place] [address] | + + + | Home Phone [...] Providers + +------+ + | Care Painter Rough Name | Role | Phone | + +------+ + | Justo Vazquez MD | PCP | | + +------+ + Encounter Details +--------+ + + + + | Date | Type | Department | Care Team | Description | +--------+ + + + + | 12/07/ | Pharmacy | [facility] | | | | 2019 | Visit | & [facility] | | | | | | [address] | | | | | | Mailcode: [place] | | | | | | [facility] Health and | | | | | | Healing, Building 1 | | | | | | [place], [place] | | | | | | [address] | | | | | | [phone] | | | +--------+ + + + [...]
--- OUTSIDE RECORDS SUMMARY | ~2020-03-09 | XMS | Encounter Summary ---
Demographics + + + | Address | [address] | | | [place] [address] | + + + | Home Phone [...] Team Providers + +------+ + | Care Branner Machine Tender Name | Role | Phone [...] Pain Medicine | Diagnoses | Chasity | Cement Truck Driver Chh1 | | | | / Pain | Abdominal | MD Kenny | [address] | | | | Management | pain, | [address] | [facility] | | | | | unspecified | [facility] | for Health | | | | | location | Rd | and Healing | | | | | Procedures | [place], [place] | Building | | | | | CONSULT TO | [address] | 1,15th Floor | | | | | PAIN | | [place], [place] | | | | | MANAGEMENT | | [address] | | | | | | | Phone: | | | | | | | [phone] | | | | | | | Fax: | | | | | | | [phone] | +--------+--------+ + + + + Encounter Details +--------+---------+ + + + | Date | Type | Department | Care Team | Description | +--------+---------+ + + + | 07/11/ | Office | [facility] | Ilene Bright, | Pain of upper | | 2017 | Visit | Pain Center at | STEWARD/STEWARDESS DINING ROOM [address] | abdomen (Primary | | | | [place] | Ave [place], [place] | Dx); Intractable | | | | [address] | [address] | cyclical vomiting | | | | [facility] | [phone] | with nausea; | | | | and [facility] | | Irritable bowel | | | | 1,15th Floor | | syndrome with | | | | [place], [place] | | constipation; | | | | [address] | | Complex regional | | | | [phone] | | pain syndrome type 1 | [...] and determine next steps. Ilene Childs DNP, STEWARD/STEWARDESS DINING ROOM-C Adult Pain Service /[facility] [address] [place] [address] documented in this encounter Progress Notes Ilene [...] at the [facility] was April 25, 2017, [...] is in the process [facility]. She has also changed [...] her abdominal pain an d associated symptoms. STITCHING DEPARTMENT SUPERVISOR QUESTIONNAIRE BRIEF PAIN 07/11/2017 Please rate how [...] has interfered with your sleep : 5 STITCHING DEPARTMENT SUPERVISOR Questionnaire Follow-up Patient 07/11/2017 Please describe [...] Hemroidectomy Trial spinal cord stimulator leads 08/02/2012 [facility], Surgeon: Janak Riojas MD Cholecystectomy [...] History Social History Narrative Single. Goes to [employer] with a light load. Has been working at [employer], can' t work on [employer]. Has roommates. Allergies Allergen Reactions Morphine [...] by physician. Concentration is 150mg/mL. Compounded by [facility] ) LAMOTRIGINE 200 MG TABLET Take [...] GRAM-5.86 GRAM SOLUTION Take as directed by [facility] Digestive Health- 2 gallon bowel [...] and summary of old medical records (source: [employer]), as summarized in the body of the [...] I, Shantel Salinas, am functioning as a spanish medical interpreter for MARLENI Clark DNP I have reviewed and verified the above scribed note of my visit with this patient as record ed by Shantel Salinas. Ilene Childs DNP, TERESA-C Adult [facility] [address] [place] [address] Addendum: I paged Dr. Les Gaspar. He was out of the clinic, I spoke with the covering provider and sha dandre Tracie's request for food allergy testing. Since Tracie thinks her pain and vomiting may b e triggered by gluten, covering provided ordered appropriate workup, which I communicated to Tracie and the the lab in [place], [place]. She will followup with me and GI once these results are available. Ilene Childs DNP, STEWARD/STEWARDESS DINING ROOM-C Adult Pain [facility] [address] [place] [address] documented in this e ncounter Plan of [...]
--- OUTSIDE RECORDS SUMMARY | ~2020-03-09 | XMS | Encounter Summary ---
Demographics + + + | Address | [address] | | | [place] [address] | + + + | Home Phone [...] Providers + +------+ + | Care Sewage Disposal Worker Name | Role | Phone | + +------+ + | Allegra Gandhi | PCP | | + +------+ + Encounter Details +--------+ + + + + | Date | Type | Department | Care Team | Description | +--------+ + + + + | 08/02/ | Results | [facility] | Janak Riojas, | | | 2011 | Only | Pain Center at | MD [address] [facility] | | | | | [facility] | [facility] [id number] | | | | | [address] | [place], [place] | | | | | Center for Health | [address] | | | | | and [facility] | [phone] | | | | | 15th Floor | | | | | | [place], [place] | | | | | | [address] | | | | | | [phone] | | | +--------+ + + + [...]
--- OUTSIDE RECORDS SUMMARY | ~2020-03-09 | XMS | Encounter Summary ---
Demographics + + + | Address | [address] | | | [place] [address] [...] Providers + +------+ + | Care Auto Driver Name | Role | Phone | [...] | | | | regional | ,PhD [address] | | | | | | pain | [address] | | | | | | syndrome | [address] | | | | | | type 1 of | Rd | | | | | | left lower | [place], [place] | | | | | | extremity | [address] | | | | | | Other | Phone: | | | | | | chronic pain | [phone] | | | | | | S/P | Fax: | | | | | | insertion of | [phone] | | | | | | spinal [...] | | | | regional | ,PhD [address] | | | | | | pain | [address] | | | | | | syndrome | [address] | | | | | | type 1 of | Rd | | | | | | left lower | [place], [place] | | | | | | extremity | [address] | | | | | | Other | Phone: | | | | | | chronic pain | [phone] | | | | | | S/P | Fax: | | | | | | insertion of | [phone] | | | | | | spinal [...] + + | 04/26/ | Telephone | [facility] Comprehensive | Alex Sanchez, | | | 2019 | | Pain Center at | ,PhD [address] | | | | | [facility] | [address] | | | | | [address] | [place], [place] | | | | | [facility] | [address] | | | | | and [facility] | [phone] | | | | | | | | | | | [place], [place] | | | | | | [address] | | | | | | [phone] | | | +--------+ + + + [...]
--- OUTSIDE RECORDS SUMMARY | ~2020-03-09 | XMS | Encounter Summary ---
Demographics + + + | Address | [address] | | | [place] [address] | + + + | Home Phone [...] Team Providers + +------+ + | Care Planning Official Name | Role | Phone | + [...] [place] | [facility] [place], | | | | | CONSULT TO | [address] | [place] | | | | | PAIN | | [address] | | | | | MANAGEMENT | | Phone: | | | | | | | [phone] | | | | | | | Fax: | | | | | | | [phone] | +--------+--------+ + + + + Encounter Details +--------+---------+ + + + | Date | Type | Department | Care Team | Description | +--------+---------+ + + + | 04/23/ | Office | Pain Center at [facility] | Alex Sanchez, | Complex regional | | 2019 | Visit | [address] | ,PhD [address] [facility] | pain syndrome type 1 | | | | Center for [facility] | [facility] [address] | of left lower | | | | and Healing Building | [facility] [place], [place] | extremity (Primary | | | | 1, 15th Floor | [address] | Dx); Other chronic | | | | [place], [place] | [phone] | pain ; S/P insertion | | | | [address] | | of spinal cord | | | | [phone] | | stimulator | +--------+---------+ + + [...] the lab on the 1st floor of [facility] to provide a urine sample for [...] fox in our notes. Alex Sanchez MD,PhD [facility] ConcordElectronically signed by Alex Sanchez MD,PhD at 04/14 [...] at the [facility] Center was December 22, [...] due to the boone that [facility] has in place. She is [...] - DRG Spinal cord stimulator trial with vozero system (09/25/2018) with 30-40% im provement of typical pain with significant improvement in mobility and function - Left popliteal/sciatic nerve injection AND abdominal scar trigger point injection ( 018) - Spinal cord stimulator trial with Radius App by Janak Riojas MD (08/02/2012) - Left L3 lumbar sympathetic block by Janak Riojas MD (03/01/2012) Opioid Risk Tool (ORT) 04/23/2019 [facility] Brief Pain Inventory: (ten= worst [...] Hemroidectomy Trial spinal cord stimulator leads 08/02/2012 [facility], Surgeon: Janak Riojas MD Cholecystectomy Appendectomy Other [...] History Social History Narrative Single. Goes to [employer] with a light load. Has been working at [employer], can' t work on [employer]. Has roommates. Allergies Allergen Reactions Morphine [...] GRAM-5.86 GRAM SOLUTION Take as directed by [facility] Digestive Health- 2 gallon [...] with nausea Abdominal pain Abdominal scar neuroma [facility] CLINICAL PROTOCOL PATIENT (CLNPRO) [...] and summary of old medical records (source: [employer]), as summarized in the body of [...] We performed DRG SCS trial with the BenchPrep System on 09/25/2018 which provided her with [...] ago. She has not spoken with the [employer] representatives about this. I encouraged her to [...] Key. Aleta Rebollar MD PAIN CENTER AT [facility] 15TH FLOOR [address] [facility] Mail Code: Ch15p [place] [id number] do cumented in this encounter Plan of [...] + + + + + | [facility] | [address] | [place] [address] | | | SERVICES, CORE | GUILLERMO [...]
--- OUTSIDE RECORDS SUMMARY | ~2020-03-09 | XMS | Encounter Summary ---
Demographics + + + | Address | [address] | | | [place] [address] | + + + | Home Phone [...] Team Providers + +------+ + | Care Tombstone Carver Name | Role | Phone | + +------+ + | Justo Vazquez MD | PCP | | + +------+ + Encounter Details +--------+ + + + + | Date | Type | Department | Care Team | Description | +--------+ + + + + | 03/12/ | Grinding Wheel Dresser | [facility] Comprehensive | Alex Sanchez, | Complex regional | | 2019 | | Pain Center at | ,PhD [address] | pain syndrome type 1 | | | | [facility][Note 3] | [address] | of left lower | | | | [address] | [place], [place] | extremity; S/P | | | | Center for Health | [address] | insertion of spinal | | | | and Healing Building | [phone] | cord stimulator | | | | Floor | | | | | | [place], [place] | | | | | | [address] | | | | | | [phone] | | | +--------+ + + + [...]
--- OUTSIDE RECORDS SUMMARY | ~2020-03-09 | XMS | Encounter Summary ---
Demographics + + + | Address | [address] | | | [place] [address] | + + + | Home Phone [...] Providers + +------+ + | Care Livestock Commission Agent Name | Role | Phone | + +------+ + | Justo Vazquez MD | PCP | | + +------+ + Encounter Details +--------+ + + + + | Date | Type | Department | Care Team | Description | +--------+ + + + + | 10/03/ | Telephone | [facility] Comprehensive | Ilene Bright, | | | 2017 | | Pain Center at | FIBER PICKER [address] | | | | | [facility] | Ave [place], [place] | | | | | [address] | [address] | | | | | [place] for [facility] | [phone] | | | | | and [facility] | | | | | | 1,15th Floor | | | | | | [place], [place] | | | | | | [address] | | | | | | [phone] | | | +--------+ + + + [...]
--- OUTSIDE RECORDS SUMMARY | ~2020-03-09 | XMS | Encounter Summary ---
Demographics + + + | Address | [address] | | | [place] [address] | + + + | Home Phone [...] + +------+ + | Care Aoc Director Intelligence Officer Name | Role | Phone | + +------+ + | Justo Vazquez MD | PCP | | + +------+ + Encounter Details +--------+ + + + + | Date | Type | Department | Care Team | Description | +--------+ + + + + | 12/27/ | Ancillary | [facility] | Alex Sanchez, | | | 2018 | Orders | Pain Center at | ,PhD [address] | | | | | [facility][Note 2] | [address] | | | | | [address] | [place], [place] | | | | | [place] for [facility] | [address] | | | | | and [facility] | [phone] | | | | | ,15th Floor | | | | | | [place], [place] | | | | | | [address] | | | | | | [phone] | | | +--------+ + + + [...]
--- OUTSIDE RECORDS SUMMARY | ~2020-03-09 | XMS | Encounter Summary ---
Demographics + + + | Address | [address] | | | [place] [address] | + + + | Home Phone [...] Providers + +------+ + | Care Freight Claim Investigator Name | Role | Phone | [...] | [facility] Comprehensive | Aleta Rebollar MD [address] | [place] | | 2018 | | Pain Center at | [address] | | | | | [facility] | [place], [place] | | | | | [address] | [address] | | | | | [facility] | [phone] | | | | | and Healing [facility] | | | | | | Floor | | | | | | [place], [place] | | | | | | [address] | | | | | | [phone] | | | +--------+ + + + [...]
--- OUTSIDE RECORDS SUMMARY | ~2020-03-09 | XMS | Encounter Summary ---
Demographics + + + | Address | [address] | | | [place] [address] | + + + | Home Phone [...] Providers + +------+ + | Care Asbestos Brake Lining Finisher Helper Name | Role | Phone | + +------+ + | Justo Vazquez MD | PCP | | + +------+ + Encounter Details +--------+ + + + + | Date | Type | Department | Care Team | Description | +--------+ + + + + | 01/02/ | Telephone | [facility] | Ilene Bright, | | | 2019 | | Pain Center at | ADULT SERVICES LIBRARIAN [address] | | | | | [facility] | Ave [place], [place] | | | | | [address] | [address] | | | | | [place] for [facility] | [phone] | | | | | and [facility] | | | | | | 1,15th Floor | | | | | | [place], [place] | | | | | | [address] | | | | | | [phone] | | | +--------+ + + + [...]
--- OUTSIDE RECORDS SUMMARY | ~2020-03-09 | XMS | Encounter Summary ---
Demographics + + + | Address | [address] | | | [place] [address] | + + + | Home Phone [...] Team Providers + +------+ + | Care Tax Collection Coordinator Name | Role | Phone | [...] | | | | | MR | [id number] | | | | | | ENTEROGRAPHY [...] | | | | | MR | [address] | | | | | | ENTEROGRAPHY [...] | 2017 | Encounter | Services at [facility] | [address] | | | | | [address] | [place], [place] | | | | | [address] | [address] | | | | | [facility] | [phone] | | | | | [place], [place] | | | | | | [address] | | | | | | [phone] | | | +--------+ + + + [...]
--- OUTSIDE RECORDS SUMMARY | ~2020-03-09 | XMS | Encounter Summary ---
Demographics + + + | Address | [address] | | | [place] [address] | + + + | Home Phone [...] Team Providers + +------+ + | Care Scooper Name | Role | Phone | + [...] Oliveira | | 2011 | IP | [address] | | House - Approved | | | | [place], | | | | | | [place] [address] | | | +--------+ + + + [...]
--- OUTSIDE RECORDS SUMMARY | ~2020-03-09 | XMS | Encounter Summary ---
Demographics + + + | Address | [address] | | | [place] [address] | + + + | Home Phone [...] Team Providers + +------+ + | Care Reaming Machine Operator Name | Role | Phone | + +------+ + | Justo Vazquez MD | PCP | | + +------+ + Encounter Details +--------+ + + + + | Date | Type | Department | Care Team | Description | +--------+ + + + + | 01/11/ | Procedure | Diagnostic Imaging | | | | 2016 | Pass | [facility] | | | | | | [address] | | | | | | Giuliana Roberson | | | | | | [facility] | | | | | | [place], [place] | | | | | | [address] | | | | | | [phone] | | | +--------+ + + + [...]
--- OUTSIDE RECORDS SUMMARY | ~2020-03-09 | XMS | Encounter Summary ---
Demographics + + + | Address | [address] | | | [place] [address] | + + + | Home Phone [...] Providers + +------+ + | Care Box Folding Machine Operator Name | Role | [...] Pharmacy | | | | | | [address] | | | | | | Loop [place], [place] | | | | | | [address] | | | | | | [phone] | | | +--------+ + + + [...]
--- OUTSIDE RECORDS SUMMARY | ~2020-03-09 | XMS | Encounter Summary ---
Demographics + + + | Address | [address] | | | [place] [address] | + + + | Home Phone [...] Providers + +------+ + | Care Scrap Drop Engineer Name | Role | Phone | [...] Pain | | 2017 | | Center [place] [phone] | | | | | | [address] [facility] | | | | | | for Health and | | | | | | Healing, Building 2 | | | | | | [place], [place] | | | | | | [address] | | | | | | [phone] | | | +--------+--------+ + + + [...]
--- OUTSIDE RECORDS SUMMARY | ~2020-03-09 | XMS | Encounter Summary ---
Demographics + + + | Address | [address] | | | [place] [address] | + + + | Home Phone [...] Providers + +------+ + | Care History Card Clerk Name | Role | Phone | [...] 2016 | | Pain Center at | PROJECT DEVELOPER [address] | | | | | [facility] | [place], [place] | | | | | [address] | [address] | | | | | Center for Health | [phone] | | | | | and [facility] | | | | | | Floor | | | | | | [place], [place] | | | | | | [address] | | | | | | [phone] | | | +--------+ + + + [...]
--- OUTSIDE RECORDS SUMMARY | ~2020-03-09 | XMS | Encounter Summary ---
Demographics + + + | Address | [address] | | | [place] [address] | + + + | Home Phone [...] Team Providers + +------+ + | Care Ecd Name | Role | Phone | + +------+ + | Justo Vazquez MD | PCP | | + +------+ + Encounter Details +--------+ + + + + | Date | Type | Department | Care Team | Description | +--------+ + + + + | 12/15/ | Documentati | Digestive Health | Bruna Quinones, | | | 2017 | on | Center at [facility] [address] | [address] | | | | | [address] [place] | [facility] [place] | | | | | for Health and | [address] | | | | | Healing, Building 2 | [phone] | | | | | [place], [place] | | | | | | [address] | | | | | | [phone] | | | +--------+ + + + [...]
--- OUTSIDE RECORDS SUMMARY | ~2020-03-09 | XMS | Encounter Summary ---
Demographics + + + | Address | [address] | | | [place] [address] | + + + | Home Phone [...] Team Providers + +------+ + | Care Confectionery Cooker Name | Role | Phone | + +------+ + | Justo Vazquez MD | PCP | | + +------+ + Encounter Details +--------+ + + + + | Date | Type | Department | Care Team | Description | +--------+ + + + + | 07/28/ | Documentati | [facility] | Ilene Bright, | | | 2017 | on | Pain Center at | DERMATOLOGY PHYSICIAN [address] | | | | | [facility] | Ave [place], [place] | | | | | [address] | [address] | | | | | [place] for [facility] | [phone] | | | | | and [facility] | | | | | | 1,15th Floor | | | | | | [place], [place] | | | | | | [address] | | | | | | [phone] | | | +--------+ + + + [...]
--- OUTSIDE RECORDS SUMMARY | ~2020-03-09 | XMS | Encounter Summary ---
Demographics + + + | Address | [address] | | | [place] [address] | + + + | Home Phone [...] Providers + +------+ + | Care Freelance Art Director Name | Role | Phone | [...] Medical Records | | 2017 | | [place] at [facility] [address] | MD Melissa | Review | | | | [address] [facility] | | | | | | for Health and | | | | | | [facility] 2 | | | | | | [place], [place] | | | | | | [address] | | | | | | [phone] | | | +--------+ + + + [...]
--- OUTSIDE RECORDS SUMMARY | ~2020-03-09 | XMS | Encounter Summary ---
Demographics + + + | Address | [address] | | | [place] [address] | + + + | Home Phone [...] | | 2016 | | Center at [facility] [address] | MD Melissa | | | | | [address] [place] | | | | | | for Health and | | | | | | Healing, Building 2 | | | | | | [place], [place] | | | | | | [address] | | | | | | [phone] | | | +--------+ + + + [...]
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
--- OUTSIDE RECORDS SUMMARY | ~2020-03-09 | XMS | Encounter Summary ---
Demographics + + + | Address | [address] | | | [place] [address] | + + + | Home Phone [...] Team Providers + +------+ + | Care Analytics Analyst Name | Role | Phone | [...] + + | 12/14/ | Hospital | [facility] GI PROCEDURE | Bruna Quinones, | | | 2017 | Encounter | [address] | MD [address] | | | | | Ave Mailcode: [facility] | [place], [place] | | | | | [facility] | [address] | | | | | Health and Healing, | [phone] | | | | | [place] [address] | | | | | | [place], [place] | | | | | | [address] | | | | | | [phone] | | | +--------+ + + + [...] Discharge Instructions Instructions Darlin Doyle RN - 12/14/2016[place] Care Instructions after Colonoscopy You may resume [...] on weekends and holidays call the Hospital Assistant Chief Nursing Officer toll free 1- [phone] Ext. [phone] or and have the GI doctor weed control inspector paged. The provider who performed your procedure [...] Farah is a 26 y.o. female MR# [id number] presents today for colonoscopy NPO since midnight [...]
--- OUTSIDE RECORDS SUMMARY | ~2020-03-09 | XMS | Encounter Summary ---
Demographics + + + | Address | [address] | | | [place] [address] | + + + | Home Phone [...] Providers + +------+ + | Care Wood Tile Installer Name | Role | Phone | + +------+ + | Justo Vazquez MD | PCP | | + +------+ + Encounter Details +--------+ + + + + | Date | Type | Department | Care Team | Description | +--------+ + + + + | 08/30/ | Documentati | Pain Center at [facility] | Jamel Madden, | | | 2018 | on | [address] | PhD [address] | | | | | [place] [facility] | [facility] [place] | | | | | and [facility] | [address] | | | | | , 15 Floor | [phone] | | | | | [place], [place] | | | | | | [address] | | | | | | [phone] | | | +--------+ + + + [...]
--- OUTSIDE RECORDS SUMMARY | ~2020-03-09 | XMS | Encounter Summary ---
Demographics + + + | Address | [address] | | | [place] [address] | + + + | Home Phone [...] Providers + +------+ + | Care Form Builder Helper Name | Role | Phone | [...] | | | sympathetic | [place] | [address]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 | FAMILY | [address] | | | | | of lower | MEDICINE P | [address] | | | | | limb | [address] | [place], [place] | | | | | | [place], | [address] | | | | | | [place] [address] | Phone: | | | | | | Phone: | [phone] | | | | | | [phone] | Fax: | | | | | | Fax: | [phone] | | | | | | [phone] | | +--------+--------+ + + + + Encounter Details +--------+---------+ + + + | Date | Type | Department | Care Team | Description | +--------+---------+ + + + | 03/17/ | Office | [facility] | Dale Cantu, | CRPS (complex | | 2011 | Visit | Pain Center at | [address] | regional pain | | | | [place] | [address] [address] | syndrome), lower | | | | [address] | [place], [place] | limb; Adjustment | | | | [place] for [facility] | [address] | reaction; Muscle | | | | and Healing Building | [phone] | pain; Gait | | | | 1,15th Floor | | disturbance | | | | [place], [place] | | | | | | [address] | | | | | | [phone] | | | +--------+---------+ + + + [...] Pain: After Your Visit", log into your ExaqtWorld nt at [email or web address]. You can enter [id number] in the Zervant Library" search box. Not on The smART Peace Prizet? Review the MyChart section of your After Visit Summary for directions on liz era to sign up. Alignable. Care instructions adapted under license by [facility]. This care instruction is for use with your licensed healthcar e professional. If you have questions about a medical condition or this instruction, always ask your healthcare professional. [employer]ign[employer] disclaims any warranty or liabili ty for your use of this information. Content Version: 9.2.225079; Last Revised: April 29, 2011 Nortriptyline for [...] Pain: After Your Visit", log into your ExaqtWorld nt at [email or web address]. You can enter G828 in the Tribal Nova" search box. Not on [employer] Carpool[employer] Website? Review the Logic Product Grouphart section of your After Visit Summary for directions on ho w to sign up. [id number] Alignable. Care instructions adapted under license by [facility] [place]. This care instruction is for use with your licensed healthcar e professional. If you have questions about a medical condition or this instruction, always ask your healthcare professional. [employer] disclaims any warranty or liabili ty for your use of this information. Content Version: 9.2.057946; Last Revised: April 29, 2011 documented in [...] documented in our notes. DALE CANTU MD Weblogic Administrator, Comprehensive [facility] Money Order Clerk, Pain Medicine Professor, Anesthesiology & Perioperative [...] her pain. She continues to take 6-8 [place] per day and 600 mg of ibuprofen [...] and a pain drawing which I reviewed. [facility] Brief Pain Inventory: (ten= worst possible [...] you require any medication refills today? no RAIL SPECIALIST ROS: 1. Bones, Joints, and Muscles: cramps [...]
--- OUTSIDE RECORDS SUMMARY | ~2020-03-09 | XMS | Encounter Summary ---
Demographics + + + | Address | [address] | | | [place] [address] | + + + | Home Phone [...] +------+ + | Care Learning And Development Specialist Name | Role | Phone | + +------+ + | Justo Vazquez MD | PCP | | + +------+ + Encounter Details +--------+ + + + + | Date | Type | Department | Care Team | Description | +--------+ + + + + | 07/26/ | MyChart | [facility] Comprehensive | Ilene Bright, | Labs | | 2017 | Encounter | Pain Center at | GLUING CREW LEADER [address] | | | | | [facility] | Ave [place], [place] | | | | | [address] | [address] | | | | | [place] for [facility] | [phone] | | | | | and [facility] | | | | | | 1,15th Floor | | | | | | [place], [place] | | | | | | [address] | | | | | | [phone] | | | +--------+ + + + [...]
--- OUTSIDE RECORDS SUMMARY | ~2020-03-09 | XMS | Encounter Summary ---
Demographics + + + | Address | [address] | | | [place] [address] | + + + | Home Phone [...] | Organization | [facility] Kitchen | | | and [place] [...] [place] | | | | | [address] | | + + + + + | Bryant Farah | ECON | Unknown | | + + + + + Care Team Providers + +------+ + | Care Comber Fixer Name | Role | Phone | + +------+ + PCP | Unavailable | + +------+ + Encounter Details +--------+ + + + + | Date | Type | Department | Care Team | Description | +--------+ + + + + | 03/16/ | Hospital | [facility] | Conversion | Back pain | | 2013 | Encounter | CONVERSION [address] | Transaction, | | | | | [address] | Provider Unknown | | | | | [place], [place] | [phone] | | | | | [address] | | | | | | [phone] | | | +--------+ + + + [...]
--- OUTSIDE RECORDS SUMMARY | ~2020-03-09 | XMS | Encounter Summary ---
Demographics + + + | Address | [address] | | | [place] [address] | + + + | Home Phone | | + + + | Preferred Language | Unknown | + + + | Marital Status | Single | + + + | Uatsdin Affiliation | 1073 | + + + | Race | Unknown | + + + | Ethnic Group | Unknown | + + + Author + + + | Author | [facility] | | | and [place] | + + + | Organization | [facility] | | | and [place] [...] [place] | | | | | [address] | | + + + + + | Bryant Farah | ECON | Unknown | | + + + + + Care Team Providers + +------+ + | Care Esl Instructor Name | Role | Phone | + +------+ + PCP | Unavailable | + +------+ + Encounter Details +--------+ + + + + | Date | Type | Department | Care Team | Description | +--------+ + + + + | 03/20/ | Hospital | [facility] | Ulices Scott, | 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 T his also failed to provide [...] stable condition. She will follow-up with her [facility] physician for continued medical management. She [...] 03/22/131929 Date of Service: 03/22/131920 Status: Signed Setter Automatic Spinning Lathe: Ava Carolina RN (Registered Nurse) Patient tolerated [...] 03/22/131854 Date of Service: 03/22/131854 Status: Signed Setter Automatic Spinning Lathe: Ava Carolina RN (Registered Nurse) Discharge teaching [...] 03/22/13656 Date of Service: 03/22/13651 Status: Signed Setter Automatic Spinning Lathe: Ulices Scott MD (Physician) [facility] Service: Interventional Pain Management Pre-Operative History [...] Author: JUSTIN Ospina Service: (none) Author Type: Pickler Helper Filed: 03/21/13 1036 Date of Service: 03/21/13 103 Status: Addendum Setter Automatic Spinning Lathe: JUSTIN Ospina (Pickler Helper) Related Notes: Original Note by JUSTIN Ospina (Pickler Helper) filed at 03/21/13 1 036 Met w/22yo F Pt who lives w/parents in [place], [place]. Pt lives in two story house [...] will transport home. Pt has info for [employer] lices Brock MD - 03/21/2013 7:27 AM PDT Progress Notes by Ulices Scott MD at 03/21/13726 Author: Ulices Scott MD Service: Interventional Pain Management Author Type: Physic deya Filed: 03/21/1335 Date of Service: 03/21/13726 Status: Signed Setter Automatic Spinning Lathe: Ulices Scott MD (Physician) [facility] Service: Interventional Pain Management Pre-Operative History [...] Date of Service: 03/21/13 0640 Status: Signed Setter Automatic Spinning Lathe: Darlin Orlando, RN (Registered Nurse) Pt had [...]
--- OUTSIDE RECORDS SUMMARY | ~2020-03-09 | XMS | Encounter Summary ---
Demographics + + + | Address | [address] | | | [place] [address] | + + + | Home Phone [...] Providers + +------+ + | Care Special Client Bus Driver Name | Role | Phone [...] | | | | | | [place], [place] | | | | | | [address] | | | +--------+ + + + [...]
--- OUTSIDE RECORDS SUMMARY | ~2020-03-09 | XMS | Encounter Summary ---
Demographics + + + | Address | [address] | | | [place] [address] | + + + | Home Phone [...] Providers + +------+ + | Care Animal Biologist Name | Role | Phone | + [...] (ortho question) | | | | [facility] | [facility] | | | | | [address] | [place], [place] | | | | | [facility] | [address] | | | | | and Healing Building | [phone] | | | | | 1,15th Floor | | | | | | [place], [place] | | | | | | [address] | | | | | | [phone] | | | +--------+ + + + [...]
--- OUTSIDE RECORDS SUMMARY | ~2020-03-09 | XMS | Encounter Summary ---
Demographics + + + | Address | [address] | | | [place] [address] | + + + | Home Phone [...] Team Providers + +------+ + | Care Trade Union Official Name | Role | Phone | + +------+ + | Justo Vazquez MD | PCP | | + +------+ + Encounter Details +--------+ + + + + | Date | Type | Department | Care Team | Description | +--------+ + + + + | 03/11/ | Telephone | [facility] [place] | Zeeshan Mahoney MD | | | 2019 | | Pain Center at | [address] | | | | | [facility] | [address] [place], | | | | | [address] | [place] [address] | | | | | [facility] | [phone] | | | | | and [facility] | | | | | | 1,15th Floor | | | | | | [place], [place] | | | | | | [address] | | | | | | [phone] | | | +--------+ + + + [...]
--- OUTSIDE RECORDS SUMMARY | ~2020-03-09 | XMS | Encounter Summary ---
Demographics + + + | Address | [address] | | | [place] [address] | + + + | Home Phone [...] Providers + +------+ + | Care Vocational Nurse Lvn Name | Role | Phone | [...]
--- OUTSIDE RECORDS SUMMARY | ~2020-03-09 | XMS | Encounter Summary ---
Demographics + + + | Address | [address] | | | [place] [address] | + + + | Home Phone [...] + +------+ + | Care Professor Of Sport Management Name | Role | Phone | [...] | Diagnoses | Beulah | Edu Pt Office Services Coordinator | | | | Therapy | CRPS | Janak Martinez MD | [address] | | | | | (complex | [address] | | | | | regional | [address] | Mailcode: | | | | | pain | Mailstop | [facility] | | | | | syndrome), | [id number] | for Health | | | | | lower limb | [place] | and Healing, | | | | | Gait | [address] | Building 1 | | | | | disturbance | Phone: | [place], [place] | | | | | Muscle pain | [phone] | [address] | | | | | Procedures | Fax: | Phone: | | | | | PHYSICAL | [phone] | [phone] | | | | | THERAPY | [...] | | | [place] | Ave [place], [place] | syndrome), lower | | | | [address] | [phone] | limb (Primary Dx) | | | | [facility] for [facility] | | | | | | and Healing, | Specialist, Edu | | | | | Building 1, | Exercise [address] | | | | | Floor [place], [place] | [address] [place], | | | | | [address] | [place] [address] | | | | | [phone] | | | +--------+---------+ + + + [...] might be different f rom the original. [id number] BRODY FARAH Date of : 1990 Start of care: 02/14/2012 Date of onset: 02/14/2012 Referring/Attending Practitioner: Janak Riojas MD . Primary/Referral Diagnosis/ICD-9: 355.71B CRPS (complex regional pain syndrome), lower limb Insurance: Payor: [facility] Plan: BCBS OUT OF STATE Product Type: PP O Service period from: 02/14/2012 to: 08/12/2012 Number visits used/authorized: 02/23 [facility] PHYSICAL THERAPY PROGRESS NOTE [...] [facility] Mailcode: Ch3p [address] [facility], [address] [place] [phone] documented in this encounter Plan of Treatment Not on filedocumented as of this encounter Procedures + +--------+ + + + | Procedure Name | Priori | Date/Time | Associated Diagnosis | Comments | | | ty | | | | + +--------+ + + + | [place] THERAPEUTIC | Routin | 05/24/2012 | CRPS (complex | | | EXERCISES | e | 6:23 PM | regional pain | | | | | PDT | syndrome), lower | | | | | | limb | | + +--------+ + + + | [place] THERAPEUTIC | Routin | 05/24/2012 | CRPS [...]
--- OUTSIDE RECORDS SUMMARY | ~2020-03-09 | XMS | Encounter Summary ---
Demographics + + + | Address | [address] | | | [place] [address] | + + + | Home Phone [...] Team Providers + +------+ + | Care Cancellation Clerk Name | Role | Phone | + +------+ + | Justo Vazquez MD | PCP | | + +------+ + Encounter Details +--------+ + + + + | Date | Type | Department | Care Team | Description | +--------+ + + + + | 08/07/ | Telephone | [facility] | Alex Sanchez, | | | 2019 | | Pain Center at | ,PhD [address] | | | | | [facility] | [address] | | | | | [address] | [place], [place] | | | | | [place] for [facility] | [address] | | | | | and [facility] | [phone] | | | | | 1,15th Floor | | | | | | [place], [place] | | | | | | [address] | | | | | | [phone] | | | +--------+ + + + [...]
--- OUTSIDE RECORDS SUMMARY | ~2020-03-09 | XMS | Encounter Summary ---
Demographics + + + | Address | [address] | | | [place] [address] | + + + | Home Phone [...] | | | | | syndrome | [facility] | | | | | type 1 of | Rd | Rd [place], | | | | | left lower | [facility], [place] | [place] | | | | | extremity | [address] | [address] | | | | | Muscle pain | Phone: | Phone: | | | | | Procedures | [phone] | [phone] | | | | | REQUEST TO | Fax: | Fax: | | | | | SURGERY | [phone] | [phone] | | | | | SYSTEMS INTEGRATION MANAGER | | | +--------+---------+ + + [...] | syndrome | [address] | | | | | type 1 of | Rd | Rd [place], | | | | | left lower | [place], [place] | [place] | | | | | extremity | [address] | [address] | | | | | Muscle pain | Phone: | Phone: | | | | | Procedures | [phone] | [phone] | | | | | REQUEST TO | Fax: | Fax: | | | | | SURGERY | [phone] | [phone] | | | | | SYSTEMS INTEGRATION MANAGER | | | | | | [...] | | | | Procedures | [facility] [place] | [facility], | | | | | CONSULT TO | [address] | [place] | | | | | PAIN | | [address] | | | | | MANAGEMENT | | Phone: | | | | | | | [phone] | | | | | | | Fax: | | | | | | | [phone] | +--------+--------+ + + + + Encounter Details +--------+---------+ + + + | Date | Type | Department | Care Team | Description | +--------+---------+ + + + | 12/14/ | Office | [facility] | Alex Sanchez, | Complex regional | | 2018 | Visit | Pain Center at | ,PhD [address] | pain syndrome type 1 | | | | [facility] | [facility] [address] | of left lower | | | | [address] | [place], [place] | extremity (Primary | | | | [facility] | [address] | Dx); Muscle pain; | | | | and Healing Building | [phone] | Pain of upper | | | | ,15th Floor | | abdomen | | | | [place], [place] | | | | | | [address] | | | | | | [phone] | | | +--------+---------+ + + + [...] in this encounter Patient Instructions Patient Instructions Snoia Key - 12/14/2017 10:25 AM Shona, Thank you for taking the time to see us in the [facility]. It was great to [...] make sure this is scheduled with the Secondary School Teacher Librarian. PRE-PROCEDURE INSTRUCTIONS 1. Please bring a national dedicated truck driver with you as we may give you medications that impair your ability to drive. This is necessary even if you do not receive sedation. You may take a taxi or [employer] if you are accompanied by a responsible [...] or blood thinning medications (other than aspirin), [facility] doctor who is doing your procedure will communicate with the provider who is prescribing y our anticoagulant therapy. If you do not have clear instructions on what to do with your an ticoagulant by 2 weeks before your procedure, please contact [facility] to cl arify your instructions. The phone number for questions or concerns is [phone]. documented in this encounter Progress Notes Charline [...] M D,PhD - 12/14/2017 10:25 AM PST [facility] Return Visit Date: 12/14/2017 Chief Complaint Patient presents with Back pain Low back pain Abdominal pain Pain in right leg Pain in left leg History of Present Illness: Tracie Farah is a 27 year old female, whose last appoi ntment at the [facility] was October 11, 2017, for a clinic [...] review treatment plan. * Follow up with [facility] as needed. Today, [...] was treated by Christie Madrid MD in [place], [place] for three years before she abruptly ended her practice due to illness. This left her without a doctor to help her manage her chronic pain. In addition to her CRPS symptoms (diagnosed 2010), she has some sto mach issues that she has been working with Ilene Childs DNP, PHYSICIAN INDUSTRIAL-C. She has a scar on her stomach [...] a lot of great improvements while in [place], [place]. Weaning her off of the narcotic [...] her medical history that she spent in [place], [place] where she part ook in a [...] Spinal cord stimulator trial - Nerve blocks FAST FOOD SHIFT LEAD Brief Pain Inventory: (ten= worst possible pain [...] History Social History Narrative Single. Goes to [place] with a light load. Has been working at [employer], can' t work on [employer]. Has roommates. Allergies Allergen Reactions Morphine Anaphylaxis [...] by physician. Concentration is 150mg/mL. Compounded by [facility] ) LAMOTRIGINE 200 MG TABLET Take [...] and summary of old medical records (source: [employer]), as summarized in the body of [...] to her by Christie Madrid MD in [place], [place]. As she has since left the [...] today. I jacqueline poon spoken with our emergency medical technician/driver, Evelia Gonzalez MD who agrees that as [...] peripheral nerve stimulation. As she lives in [place], [place] with her family (3.5 hours away), [...] by Sonia Key. Alex Sanchez MD PhD Steel Division Supervisor Anesthesiology and Pain Management [facility] [...] + + + + + | [facility] | [address] | [place] [address] | | | SERVICES, CORE | GUILLERMO [...]
--- OUTSIDE RECORDS SUMMARY | ~2020-03-09 | XMS | Encounter Summary ---
Demographics + + + | Address | [address] | | | [place] [address] | + + + | Home Phone [...] Providers + +------+ + | Care Plumbing Hardware Assembler Name | Role | Phone | + +------+ + | Justo Vazquez MD | PCP | | + +------+ + Encounter Details +--------+------+ + + + | Date | Type | Department | Care Team | Description | +--------+------+ + + + | 04/23/ | Lab | Laboratory at [facility] | | Other chronic pain ; | | 2018 | | [address] | | Complex regional | | | | Center for [facility] | | pain syndrome type 1 | | | | and Healing, | | of left lower | | | | Building 2 | | extremity | | | | [place], [place] | | | | | | [address] | | | | | | [phone] | | | +--------+------+ + + + [...] LABORATORY | | Barbiturates >=200 ng/mL | [facility] | | Benzodiazepine >=200 ng/mL Cocaine | [...] | KEVIN SHAH | [address] | [place] [address] | | | SERVICES, LILLIAN | GUILLERMO [...]
--- OUTSIDE RECORDS SUMMARY | ~2020-03-09 | XMS | Encounter Summary ---
Demographics + + + | Address | [address] | | | [place] [address] | + + + | Home Phone [...] Team Providers + +------+ + | Care Resaw Carriage Operator Name | Role | Phone | + +------+ + | Justo Vazquez MD | PCP | | + +------+ + Encounter Details +--------+ + + + + | Date | Type | Department | Care Team | Description | +--------+ + + + + | 05/12/ | MyChart | Pain Center at [facility] | Ewa Melchor, | RE: Schedule change | | 2017 | Encounter | [address] | PHOTOENGRAVING APPRENTICE [address] | | | | | Center for [facility] | [address] | | | | | and Healing Building | [place] [address] | | | | | 1, 15th Floor | [phone] | | | | | [place], [place] | | | | | | [address] | | | | | | [phone] | | | +--------+ + + + [...]
--- OUTSIDE RECORDS SUMMARY | ~2020-03-09 | XMS | Encounter Summary ---
Demographics + + + | Address | [address] | | | [place] [address] | + + + | Home Phone [...] Providers + +------+ + | Care Composition Teacher Name | Role | Phone | [...] + + | 01/11/ | Telephone | [facility] | Alex Sanchez, | Referral To | | 2018 | | Pain Center at | ,PhD [address] | Orthopedics (discuss | | | | [facility] | [address] | ortho appointment) | | | | [address] | [place], [place] | | | | | [facility] | [address] | | | | | and [facility] Building | [phone] | | | | | 1,15th Floor | | | | | | [facility] [place] | | | | | | [address] | | | | | | [phone] | | | +--------+ + + + [...]
--- OUTSIDE RECORDS SUMMARY | ~2020-03-09 | XMS | Encounter Summary ---
Demographics + + + | Address | [address] | | | [place] [address] | + + + | Home Phone [...] Providers + +------+ + | Care Library Aide Name | Role | Phone | [...] | | 2015 | | Center at [facility] [address] | MD Melissa | | | | | [facility] | | | | | | for Health and | | | | | | [facility], Building 2 | | | | | | [place], [place] | | | | | | [address] | | | | | | [phone] | | | +--------+ + + + [...]
--- OUTSIDE RECORDS SUMMARY | ~2020-03-09 | XMS | Encounter Summary ---
Demographics + + + | Address | [address] | | | [place] [address] | + + + | Home Phone [...] Providers + +------+ + | Care Binding Cutter Name | Role | Phone | + +------+ + | Justo Vazquez MD | PCP | | + +------+ + Encounter Details +--------+ + + + + | Date | Type | Department | Care Team | Description | +--------+ + + + + | 01/26/ | Document-Sc | Health Information | Unknown . | | | 2017 | anned | Services [address] | | | | | | [address] | | | | | | Mailcode: OP17A | | | | | | [facility] | | | | | | [place], [place] | | | | | | [address] | | | | | | [phone] | | | +--------+ + + + [...]
--- OUTSIDE RECORDS SUMMARY | ~2020-03-09 | XMS | Encounter Summary ---
Demographics + + + | Address | [address] | | | [place] [address] | + + + | Home Phone [...] Providers + +------+ + | Care Assembler For Puller Over Hand Name | Role | Phone | [...] | | | [address] | [facility] | | | | | [place], [place] | [place], [place] | | | | | [address] | [address] | | | | | | [phone] | | | | | | | [...] | + +--------+ + + + | [employer] DRIVER MISC PROCEDURE | Routin | 12/27/2017 | Complex regional | Results for this | | | e | 3:28 PM | pain syndrome type 1 | procedure are in the | | | | PST | of left lower | results section. | | | | | extremity | | + +--------+ + + + documented in this encounter Results [facility] MISC PROCEDURE (12/27/2017 3:28 [...]
--- OUTSIDE RECORDS SUMMARY | ~2020-03-09 | XMS | Encounter Summary ---
Demographics + + + | Address | [address] | | | [place] [address] | + + + | Home Phone [...] Providers + +------+ + | Care Delivery Mgr Name | Role | Phone | + [...] | | | sympathetic | [place] | [address]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 | FAMILY | Mailstop | | | | | of lower | MEDICINE P | [id number] | | | | | limb | [address] | [place], [place] | | | | | | [place], | [address] | | | | | | [place] [address] | Phone: | | | | | | Phone: | [phone] | | | | | | [phone] | Fax: | | | | | | Fax: | [phone] | | | | | | [phone] | | +--------+--------+ + + + + Encounter Details +--------+---------+ + + + | Date | Type | Department | Care Team | Description | +--------+---------+ + + + | 09/04/ | Office | [facility] | Dale Cantu, | CRPS (complex | | 2011 | Visit | Pain Center at | [address] | regional pain | | | | [facility] | [facility] [address] | syndrome), lower | | | | [address] | [place], [place] | limb; Gait | | | | [place] [facility] | [address] | disturbance; Sleep | | | | and Healing Building | [phone] | disturbance, | | | | 1,15th Floor | | unspecified; | | | | [place], [place] | | Adjustment reaction | | | | [address] | | | | | | [phone] | | | +--------+---------+ + + + [...] CRPS patients (Loretta Rousseau et al. Katrina Drywall Installer Med. 2010;152:152-158) . Bisphosphonate trial. Typically, I [...] Abraham MD - 09/04/2012 7:45 AM PDT [facility] Return Visit with Dr. [...] drawing which I reviewed. [facility] Brief Pain Inventory: (ten= worst [...] leads 08/02/2012 [facility], Surgeon: Dale Cantu MD Family [...] The Review of Systems obtained by the [facility] was reviewed. Additional Review of Systems [...] of Pain: 13(1):17-21, 2008). DALE CANTU MD Door Liner, [facility] Pants Cutter, Pain Medicine Professor, Anesthesiology & Perioperative Medicine [...]
--- OUTSIDE RECORDS SUMMARY | ~2020-03-09 | XMS | Encounter Summary ---
Demographics + + + | Address | [address] | | | [place] [address] | + + + | Home Phone [...] Team Providers + +------+ + | Care Photographer Aerial Name | Role | Phone | + [...] Center at [facility] [address] | | severe stomach Pain) | | | | [facility] | | | | | | for Health and | | | | | | Healing, Building 2 | | | | | | [place], [place] | | | | | | [address] | | | | | | [phone] | | | +--------+ + + + [...]
--- OUTSIDE RECORDS SUMMARY | ~2020-03-09 | XMS | Encounter Summary ---
Demographics + + + | Address | [address] | | | [place] [address] | + + + | Home Phone [...] Providers + +------+ + | Care Research Computing Specialist Name | Role | Phone | [...] | | Pain | Complex | Ilene, SADDLE AND SIDE WIRE STITCHER | Hanna M, | | | | Management | regional | [address] | | | | | pain | [address] | [address] | | | | | syndrome | [place], [place] | [place], [place] | | | | | type 1 of | [address] | [address] Phone: | | | | | left lower | Phone: | [phone] | | | | | extremity | [phone] | Fax: | | | | | Intractable | Fax: | [phone] | | | | | cyclical | [phone] | | | | | | vomiting [...] Medicine | Diagnoses | Chasity, | Health Unit Coordinator Chh1 | | | | / Pain | Abdominal | MD Kenny | [address] | | | | Management | pain, | [address] | [facility] | | | | | unspecified | [facility] | for Health | | | | | location | Rd | and Healing | | | | | Procedures | [place], [place] | [facility] | | | | | CONSULT TO | [address] | 1,15th Floor | | | | | PAIN | | [place], [place] | | | | | MANAGEMENT | | [address] | | | | | | | Phone: | | | | | | | [phone] | | | | | | | Fax: | | | | | | | [phone] | +--------+--------+ + + + + Encounter Details +--------+---------+ + + + | Date | Type | Department | Care Team | Description | +--------+---------+ + + + | 04/25/ | Office | [facility] | [facility] Mak Ilene, | Abdominal pain, | | 2017 | Visit | Pain Center at | SADDLE AND SIDE WIRE STITCHER [address] | unspecified location | | | | [facility] | Ave [place], [place] | (Primary Dx); | | | | [address] | [address] | Complex regional | | | | [facility] | [phone] | pain syndrome type 1 | | | | and Healing Building | | of left lower | | | | 1,15th Floor | | extremity; | | | | [place], [place] | | Intractable cyclical | | | | [address] | | vomiting with | | | | [phone] | | nausea; | | | | [...] encounter Patient Instructions Patient Instructions Ilene Bright, SADDLE AND SIDE WIRE STITCHER - 04/25/2017 1:35 PM PDTKelly, Nice to [...] Freddie Guadalupe MD [email or web address] Ilene Childs DNP, SADDLE AND SIDE WIRE STITCHER-C [facility] [address] [place] [address] documented in this encounter Progress Notes Ilene Bright FNP - 04/25/2017 1:35 PM PDTFormatting of this note might be different fr om the original. Date: 04/25/2017 was referred for pain management consultation by Kenny Gaspar MD [address] [place] [address] Reason for consult: abdominal pain Chief Complaint Patient presents with Abdominal pain Back pain History of Present Illness: Tracie Farah is a 26 year old female with a history of depression, complex regional pain syndrome (left lower extremity) for this she follows with a neurologist at [facility] in [facility]. She has been stable on her current [...] better) Just started her on Celebrex (senior care option) Intranasal ketamine Lamotrigine Memantine Ibuprofen Cymbalta 20 mg BID Cyclobenzaprine Her nonmedication treatment has not included acupuncture, etc due to limited income. She feels that the most effective treatments include: medication (toradol). lives in [place], [place] alone and with her children. She receives disability. does not have specific goals for today's appointment. 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 Goes to [employer] with a light load. Has been working at [employer], can' t work on [email or web address]. Has roommates. Allergies Allergen Reactions Morphine Anaphylaxis [...] by physician. Concentration is 150mg/mL. Compounded by [facility] ) LAMOTRIGINE 200 MG TABLET Take [...] GRAM SOLUTION Take as directed by [facility]- 2 gallon bowel prep POLYETHYLENE GLYCOL 3350 17 GRAM/DOSE ORAL POWDER Take 17 g by mouth once daily. PROMETHAZINE 12.5 MG TABLET Take 12.5 mg by mouth four times daily as needed for nausea/vom iting. SUCRALFATE 1 GRAM TABLET Take 1 g by mouth four times daily. Radiology/Diagnostic Tests: MR ENTEROGRAPHY ABDOMEN AND PELVIS WWO CONTRAST Order: [id number] Performed: 01/31/2017 4:34 PM Status: Final result [...] 3:50 PM X-RAY ABDOMEN 1 VIEW Order: [id number] Performed: 03/19/2017 6:52 AM Status: Final result [...] and summary of old medical records (source: [employer]), as summarized in the body of [...] possible opioid-sparing effects (Stevie Paulino et al.C CEYX, (8):1655-70, 2007) and evidence that it can [...] The Fibro Manual, by Freddie Guadalupe MD [email or web address] Central sensitization Ilene Childs DNP, TERESA-C [facility] [address] [place] [address] Display Progress Note in MyChart: No documented [...]
--- OUTSIDE RECORDS SUMMARY | ~2020-03-09 | XMS | Encounter Summary ---
Demographics + + + | Address | [address] | | | [place] [address] | + + + | Home Phone [...] +------+ + | Care Fish And Wildlife Biologist Name | Role | Phone | [...] | | | | | extremity | [address] | [address] | | | | | Procedures | Phone: | Phone: | | | | | REQUEST TO | [phone] | [phone] | | | | | SURGERY | Fax: | Fax: | | | | | STAFF DEVELOPMENT NURSE | [phone] | [phone] | +--------+---------+ + + + + Encounter Details +--------+---------+ + + + | Date | Type | Department | Care Team | Description | +--------+---------+ + + + | 09/28/ | Office | [facility] Comprehensive | Yun Frey NP | Complex regional | | 2018 | Visit | Pain Center at | [address] | pain syndrome type 1 | | | | [place] | [place], [place] | of left lower | | | | [address] | [address] | extremity (Primary | | | | Center for [facility] | [phone] | Dx); Arthralgia of | | | | and Healing Building | | left lower leg | | | | 1,15th Floor | | | | | | [place], [place] | | | | | | [address] | | | | | | [phone] | | | +--------+---------+ + + + [...] act ivity and social withdrawal Yun Tim, EMBOSSED OR IMPRESSED LETTERING PAINTER - 1 11/28/2017 12:05 PM PST September 28, 2018 Tracie Farah [id number] [facility] Comprehensive Pain Center Return [...] and a pain drawing which I reviewed. [facility] Questionnaire Follow-up Patient 10/10/2017 Please describe [...] DRG Spinal Cord Stimuation Trial with [employer]. [employer] system LEVEL/LATERALITY: left L4, L5. Till date, [...] turned up to 7%. After seeing th event marketing representative today and killian ing adjustments, she [...] leads 08/02/2012 [facility], Surgeon: Janak Riojas MD [...] the vein (IV) every eight hour s. 6993-8280-00 COMPOUNDED MED RX CONTROLLED (SEE ADMIN INSTRUCT [...] by physician. Concentration is 150mg/mL. Compounded by [facility] ) KETOROLAC IM Inject into [...] (IV) every twel ve hours as needed. 0084-1576-40 ONDANSETRON 4 MG DISINTEGRATING TABLET Dissolve 1 tablet in mouth every twelve hours as nee ded. PANTOPRAZOLE 40 MG TABLET,DELAYED RELEASE Take 40 mg by mouth once daily. PEG 3350-ELECTROLYTES 236 GRAM-22.74 GRAM-6.74 GRAM-5.86 GRAM SOLUTION Take as directed by [facility] Digestive [facility]- 2 gallon bowel [...] been given programming opti ons by the [employer]'s device event marketing representative, Michele. At this time, there is no complication from the DRG trial. Recommendations/Plan: 1. Recommend to keep her appointment with Dr. Sanchez on 10/02/2018. 2. To contact the [employer]'s rep if she has any further question on programming. 09/28/2018: I, Dayana Ivan, am functioning as a medical cost consultant for Yun Frey NP. I have reviewed and verified the above scribed note of my visit with this patient as record ed by Ms. Dayana Ivan. Jeanine Frey (Mr.) MSN, ACNP- Nurse Practitioner [facility] [address] [place] [id number] documented in this enco unter Plan of [...]
--- OUTSIDE RECORDS SUMMARY | ~2020-03-09 | XMS | Encounter Summary ---
[...] Providers + +------+ + | Care Lead Quality Control Technician Name | Role | Phone [...] Mook Shane | | | | | [facility] | [facility], | | | | | [address] | [place] [address] | | | | | [facility] | [phone] | | | | | and [facility] | | | | | | Floor | | | | | | [place], [place] | | | | | | [address] | | | | | | [phone] | | | +--------+ + + + [...]
--- OUTSIDE RECORDS SUMMARY | ~2020-03-09 | XMS | Encounter Summary ---
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 | | | | Therapy | CRPS | Janak Martinez MD | Chh1 [address] | | | | | (complex | [address] | | | | | regional | [address] | Mailcode: | | | | | pain | Mailstop | [facility] | | | | | syndrome), | [phone] | for Health | | | | | lower limb | [place], [place] | and Healing, | | | | | Gait | [address] | Building 1 | | | | | disturbance | Phone: | [place], [place] | | | | | Muscle pain | [phone] | [address] | | | | | Procedures | Fax: | Phone: | | | | | PHYSICAL | [phone] | [phone] | | | | | THERAPY | [...] | | | [place] | Ave [place], [place] | syndrome), lower | | | | [address] | [phone] | limb (Primary Dx) | | | | [place] for [facility] | | | | | | and Healing, | | | | | | Building 1, | | | | | | Floor [place], [place] | | | | | | [address] | | | | | | [phone] | | | +--------+---------+ + + + [...] might be different f rom the original. [id number] BRODY FARAH Date of : 1990 Start of care: 02/14/2012 Date of onset: 02/14/2012 Referring/Attending Practitioner: Janak Riojas MD . Primary/Referral Diagnosis/ICD-9: 355.71B CRPS (complex regional pain syndrome), lower limb Insurance: Payor: [facility] Plan: BCBS OUT OF STATE Product Type: PP O Service period from: 02/14/2012 to: 08/12/2012 Number visits used/authorized: 01/23 [facility] PHYSICAL THERAPY PROGRESS NOTE SUBJECTIVE: Age: 21 y.o. Sex: female Chief complaint: No chief complaint on file. Current: pt has been doing her neck exercises. She is not shaking as much. Her foot hurts t bruno. Now she is working at [employer] 2-3 hours per week, and spends a [...] change in their status. Guillermo Sanon MSPT [facility] Outpatient Rehabilitation Services Mailcode: Ch3h [address] [facility], [address] [place] [phone] documented in this encounter Plan of Treatment Not on filedocumented as of this encounter Procedures + +--------+ + + + | Procedure Name | Priori | Date/Time | Associated Diagnosis | Comments | | | ty | | | | + +--------+ + + + | CT THERAPEUTIC | Routin | 05/11/2012 | CRPS [...]
--- OUTSIDE RECORDS SUMMARY | ~2020-03-09 | XMS | Encounter Summary ---
Demographics + + + | Address | [address] | | | [place] [address] | + + + | Home Phone [...] Team Providers + +------+ + | Care Sterilizer Machine Operator Name | Role | Phone | + +------+ + | Justo Vazquez MD | PCP | | + +------+ + Encounter Details +--------+ + + + + | Date | Type | Department | Care Team | Description | +--------+ + + + + | 12/28/ | Telephone | [facility] Comprehensive | Ilene Bright, | | | 2019 | | Pain Center at | QUALITY ENGINEER MEDICAL DEVICE [address] | | | | | [facility] | Ave [place], [place] | | | | | [address] | [address] | | | | | [place] for [facility] | [phone] | | | | | and [facility] | | | | | | 1,15th Floor | | | | | | [place], [place] | | | | | | [address] | | | | | | [phone] | | | +--------+ + + + [...]
--- OUTSIDE RECORDS SUMMARY | 2020-03-09 13:24 | XMS ---
PreManage Notification: BRODY LINCOLN Security Purchasing Officer Events No recent Security Events currently on file CRITERIA MET - Group Notification - [facility] - Has Care Guidelines - PDMP - [facility] - 2 Visits in 30 Days CARE PROVIDERS MARCELINO PERRY Internal Medicine 07/18/2018-Current PHONE: [phone] Aron Hannah Anesthesiology: Pain Medicine 07/18/2018-Current PHONE: Unknown Guidelines Source: [facility] Guidelines Date: 08/22/2019 Care Recommendation: PATIENT HAS HISTORY COMPLEX REEGIONAL PAIN SYNDROME WELL CYCLICAL ABDOMINAL PAIN/NAUSEA/VOMITING.\T\nbsp; UNDER TREATMENT WITH ARON HANNAH MD PHD PAIN MANAGMENT [facility].\T\nbsp; FOLLOW THIS REGIMEN WHEN PRESENTING TO ED FOR RESOLUTION OF SYMPTOMS: *HYDRATION IV *HYDROMORPHONE 1MG IV * KETOROLAC 30 MG IV *PROMETHAZINE 25MG IV Additional care guidelines exist for the following facilities: [facility] ( 05/21/2019 ) Care History Medical/Surgical 03/06/2020 [facility] Patient has scheduled follow up with Dr. Quach at 11:00 am today.\T\nbsp; [address] Quach in next few weeks. 08/24/2019 [facility] - IF SEEN FOR HER CHRONIC COMPLEX REGIONAL PAIN SYNDROME/NAUSEA VOMITING IN THE EMERGENCY ROOM - TREAT WITH [facility]\T\nbsp;TREATMENT GUIDELINES IN THE ED ONLY --- DO NOT ADMIT FOR OBSERVATION OR\T\nbsp;INPATIENT - MAY NEED TO STAY FOR\T\nbsp;MULTIPLE\T\nbsp;TREATMENT ATTEMPTS - PATIENT IS NO LONGER TO BE ADMITTED\T\nbsp;FOR THIS CHRONIC CONDITION - IF SOMETHING ELSE IS FOUND ADMIT NEEDED\T\nbsp; 05/02/2018 [facility] - Patient is currently established with [facility]. If patient is seen in the ED during business hours. Please contact [facility] at [facility] at [phone]. Care Recommendation: This patient has had 5 or more Emergency Department visits in the last 12 months.\T\nbsp; Patient requires education on the scope and purpose of the ED as an acute care provider not a Primary Care Provider and should not be utilized for chronic conditions.\T\nbsp; If patient returns to ED please contact Community Health WorkerIlene at [phone]. These are guidelines and the provider should exercise clinical judgment when providing care. E.D. VISIT COUNT (12 MO.) 5 [facility] TOTAL 5 NOTE: Visits indicate total known visits. ED/UCC VISIT TRACKING (12 MO.) 03/09/2020 13:[address] [facility] [place] TYPE: Emergency COMPLAINT: - ABD PAIN, VOMITING 03/05/2020 10:51 [facility] [place] TYPE: Emergency COMPLAINT: - ABD PAIN, VOMITING DIAGNOSES: - Other snf (current) drug therapy - Other chronic pain - Nicotine dependence, unspecified, uncomplicated - FDC (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 - Allergy status to other drugs, medicaments and biological sub - Cyclical vomiting syndrome unrelated to migraine - Unspecified abdominal pain - Allergy status to narcotic agent status 08/12/2019 15:11 [facility] [place] TYPE: Emergency COMPLAINT: - ABD PAIN, NAUSEA 08/10/2019 13:43 [facility] [place] TYPE: Emergency COMPLAINT: - ABD/BACK PAIN, VOMITING DIAGNOSES: - Other snf (current) drug therapy - Upper abdominal pain, unspecified - Allergy status to narcotic agent status - Cyclical vomiting, not intractable 08/08/2019 18:18 [facility] [place] TYPE: Emergency COMPLAINT: - SEVERE ABD AND BACK PAIN, VOMITING DIAGNOSES: - Other snf (current) drug therapy - Complex regional pain syndrome I, unspecified - Unspecified abdominal pain - Allergy status to other drugs, medicaments and biological sub - Allergy status to narcotic agent status INPATIENT VISIT TRACKING (12 MO.) 08/12/2019 15:[address] [facility] [place] TYPE: Observation COMPLAINT: - INTACKABLE ABDOMINAL PAIN DIAGNOSES: - FDC (current) use of opiate analgesic - Allergy status to narcotic agent status - Unspecified mood [affective] disorder - Complex regional pain syndrome I of left lower limb - Nausea with vomiting, unspecified - Right upper quadrant pain - Chronic pain syndrome - Other snf (current) drug therapy - Other constipation [email or web address]
== END 2020-03-09 15:34 | disposition home or self-care (01) ==
LOC: ED 13:20
DX: R11.2 Nausea with vomiting, unspecified (principal); G90.50 Complex regional pain syndrome I, unspecified; Z87.891 Personal history of nicotine dependence; Z88.5 Allergy status to narcotic agent; Z79.899 Other long term (current) drug therapy
CPT/HCPCS: 80053; 81001; 83690; 83735; 84703; 85025; 96361; 96374; 96375; 99284-25; J1885; J2550; J7030

== ENCOUNTER 2020-03-23 06:39 | Inpatient (IN) | payer MEDICARE, OTHER ==
[~2020-03-23] VITALS: Ht 165.1 cm; Wt 95.7 kg
--- OUTSIDE RECORDS SUMMARY | ~2020-03-23 | XMS | Encounter Summary ---
Demographics + + + | Address | [address] | | | [place] [address] | + + + | Home Phone | | + + + | Preferred Language | Unknown | + + + | Marital Status | Single | + + + | Alevism Affiliation | FMD | + + + | Race | White | + + + | Ethnic Group | Not or | + + + Author + + + | Author | [facility] | + + + | Organization | [facility] | + + + | Address | Unknown | + + + | Phone | Unavailable | + + + Support + + +---------+ + | Name | Relationship | Address | Phone | + + +---------+ + | Patricia Colin | ECON | Unknown | | + + +---------+ + Care Team Providers + +------+ + | Care Branch Employment Coordinator Name | Role | Phone | + +------+ + | Justo Vazquez MD | PCP | | + +------+ + Encounter Details +--------+ + + + + | Date | Type | Department | Care Team | Description | +--------+ + + + + | 10/19/ | Telephone | [facility] | Ilene Bright, | | | 2017 | | Pain Center at | PROJECT PRODUCTION ENGINEER [address] | | | | | [facility] | [place], [place] | | | | | [address] | [address] | | | | | Mailcode: CH15P | [phone] | | | | | [facility] | | | | | | and Healing, | | | | | | | | | | | | Floor [place], [place] | | | | | | [address] | | | | | | [phone] | | | +--------+ + + + [...]
--- OUTSIDE RECORDS SUMMARY | ~2020-03-23 | XMS | Encounter Summary ---
Demographics + + + | Address | [address] | | | [place] [address] | + + + | Home Phone | | + + + | Preferred Language | Unknown | + + + | Marital Status | Single | + + + | Temple Affiliation | FMD | + + + | Race | White | + + + | Ethnic Group | Not or | + + + Author + + + | Author | [facility] | + + + | Organization | [facility] | + + + | Address | Unknown | + + + | Phone | Unavailable | + + + Support + + +---------+ + | Name | Relationship | Address | Phone | + + +---------+ + | Patricia Colin | ECON | Unknown | | + + +---------+ + Care Team Providers + +------+ + | Care Research Engineer Name | Role | Phone | + +------+ + | Allegra Chaudhary | PCP | | + +------+ + Reason for Referral PROC - Dept/Practice Procedure (Routine) +--------+--------+ + + + + | Status | Reason | Specialty | Diagnoses / | Referred By | Referred To | | | | | Procedures | Contact | Contact | +--------+--------+ + + + + | Closed | | Gastroenterol | Diagnoses | Tholey, | [facility] | | | | ogy | | Ava Torres, | [address] [address] | | | | | Constipation | MD [address] | [address] [place] | | | | | , | Mook Shane | Mailcode: | | | | | unspecified | Giuliana Maldonado | [facility] | | | | | constipation | [facility] [place] | for Health | | | | | type | [phone] | and Healing, | | | | | Procedures | | [address] | | | | | CONSULT TO | | [place], [place] | | | | | GI PROCEDURE | | [address] | | | | | UNIT: | | Phone: | | | | | ANORECTAL | | [phone] | | | | | MANOMETRY | | Fax: | | | | | [place] ANAL | | [phone] | | | | | PRESSURE | | | | | | | RECORD | | | +--------+--------+ + + + + Reason for Visit + + + | Reason | Comments | + + + | New patient | | | consultation | | + + + Intake Referral (Urgent) +--------+--------+ + + + + | Status | Reason | Specialty | Diagnoses / | Referred By | Referred To | | | | | Procedures | Contact | Contact | +--------+--------+ + + + + | Closed | | Gastroenterol | Diagnoses | | [facility] | | | | ogy | | Vijigall, | [address] | | | | | Gastroparesi | Allegra K, | [address] | | | | | s | [place] [address] | Mailcode: | | | | | | [address] | [facility] for | | | | | | [place], | Health and | | | | | | [place] [address] | Healing, | | | | | | Phone: | [address] | | | | | | [phone] | [place], [place] | | | | | | Fax: | [address] | | | | | | [phone] | Phone: | | | | | | | [phone] | | | | | | | Fax: | | | | | | | [phone] | +--------+--------+ + + + + Encounter Details +--------+---------+ + + + | Date | Type | Department | Care Team | Description | +--------+---------+ + + + | 08/10/ | Office | Digestive Health | Ava Carbajal | Constipation, | | 2016 | Visit | Center at [facility] [address] | MD Melissa | unspecified | | | | [address] | | constipation type | | | | Mailcode: Center | | (Primary Dx) | | | | for Health and | | | | | | Healing, [address] | | | | | | [place], [place] | | | | | | [address] | | | | | | [phone] | | | +--------+---------+ + + + Social History + +-------+ [...] + + + | Blood Pressure | 105/65 | 08/10/2016 2:28 PM | | | | | PDT | | + + + + + | Pulse | 73 | 08/10/2016 2:28 PM | | | | | PDT | | + + + + + | Temperature | 36.4 C (97.6 F) | 08/10/2016 2:28 PM | | | | | PDT | | + + + + + | Respiratory Rate | 16 | 08/10/2016 2:28 PM | | | | | PDT | | + + + + + | Oxygen Saturation | - | - | | + + + + + | Inhaled Oxygen | - | - | | | Concentration | | | | + + + + + | Weight | 68.9 kg (152 lb) | 08/10/2016 2:28 PM | | | | | PDT | | + + + + + | Height | 165.1 cm (5' 5") | 08/10/2016 2:28 PM | | | | | PDT | | + + + + + | Body Mass Index | 25.29 | 08/10/2016 2:28 PM | | | | | PDT | | + + + + + documented in this encounter Progress Notes Celia Lin MD - 08/11/2016 12:32 PM PDT ----- Attending Attestation: I interviewed and examined this patient along with Dr. Carbajal on 08/10/16 and discussed the case with both the patient and Fellow. I agree with the Fellow's findings and plan as chinyere faust in their attached note. Celia Lin MD [facility] [employer] Division of Gastroenterology & Hepatology [facility] va Carbajal MD - 08/09/2016 8:40 PM PDT Gastroenterology Initial Clinic Note 08/09/2016 CHIEF COMPLAINT/IDENTIFICATION: "Gastroparesis"-Nausea emesis and abdominal pain -SECOND O GERMAINE Dr[facility] Flores[facility] PCP: HANDY Villalpando HISTORY OF PRESENT ILLNESS Tracie Farah is a 26 F PMHx depression, complex regional pain syndrome(CRPS) who p resents for management of N/V abdominal pain attributed to gastroparesis. Patient was diagno sed with gastroparesis in February per consult and has been on reglan since that time. However GES from October shows intiial delayed solid phase emptying with normlaization by end of study and no food in stomach at 4 hours. As such she ultimately has a normal GES. Patient is seen by Dr. Flores in [place] [facility]. Patient has hx of GERD which was treated successfully with ranitidine in past. She develope d N/V abdominal pain in june 2015 which prompted UGI showing severe to moderate reflux. Handy leroy sxs continued so she presented to ED and was hospitalized in oct 2015. At that time h er chronic pain MD was contacted and per notes he felt her sxs were indentical to her CRPS, but family was frustrated with this diagnosis. Patient had EGD which showed some erythema at antrum but was otherwise normal with normal bxs-no HP. She also had GES which as mentioned above showed intial delayed emptying but then normalized with no food in stomach at 4 hours. She also had CT abdomen w contrast done at [facility] on 10/23/15 showing large stool burden but otherwise normal exam. She had mild central biliary intrahepatic dilation but is post charley and has had normal LFTs on all occasions. Normal small bowel and pancreas. She was started on ranitidine and PPI and did have relief in her symptoms suggesting GERD w as responsible for her pain. She also had symptomatic improvement with lactulose to relieve her constipation. Dr. Flores tried her on domperidone, TCA w/o relief. Reglan-doesn't help that much. CURRENT HX: Main symptoms are: Emesis and abdominal pain Onset of symptoms June 2015 with abdominal pain and emesis. Pain is predominant issue. -Severe Epigastric abdominal cramping -Food seems help pain at first but then worse an hour later. -Associated bloating and constipated. If she doesn't use something to make her have BM she wont go for weeks. -Has nausea and emesis with episodes of pain. -Any oral pills she takes during flares she vomits up bile. She was on PPI 40 mg x 2 months not significant relief. -No fevers -Weight loss 30 lbs over last year -She has period were she feels normal but feels like frequency of flares is increasing. -She is having a flare every 2 weeks and they are lasting about 2-3 weeks +PPI 40 mg protonix BID No NSAIDS-prior NSAIDS +Ativan prn-helped with emesis Severe Constipation since her CRPS and using narcotics. But persisted after stopping narcot ics -During flares she has take something or she wont go for over a week -Has tried senna, lactulose, miralax, linzess, she (not tried viberzi) -Glycerine suppositories -She tried Miralax QID with no relief. -She tried golytley prep with no relief. GI TIMELINE: # N/V and abdominal pain -most likely due to severe constipation vs IBS vs GERD -dx'd February 2016 w gastroparesis (GES October 2015 normal) -Treatments tried: reglan 5 mg QID (current) Tried domperidone no relief Amitryptyline-no relief -onset of abdominal pain N/V june 2015 with UGI showing reflux and EGD showing chornic ga stritis in October. +Ativan-helped with emesis GI MDS: [facility] LABS: -increased CRP 06/19/16: Lipase-normal (8) B-HCG negative 01/2016: ESR and CRP-normal KAITLYN, anti-ccp=normal RA=normal 12/2015: CRP=18 (high) HP : negative (10/2015) ENDOSCOPY/PROCEDURES 10/2015: EGD Indication: N/V PATH= Chronic gastritis IMAGING: Upper GI(june 2015): moderate to severe reflux. GES (10/2015): Impression: slightly delayed intial gastric emptying, but at 4 hours stomach completely emptied. CT abdomen w contrast (10/2015) [facility] -Impression: constipation with large stool burden otherwise normal SURGERIES: -appendectomy and cholecystectomy january 2014-Dr. Montejo Summary of prior medical records (personally reviewed today): REVIEW OF SYSTEMS 11-point ROS negative other than per HPI. 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 NO Hx IBD SOCIAL HISTORY Smoker: none Etoh: none. No hx heavy etoh Drugs: None MEDICATIONS Current Outpatient Prescriptions Medication Sig ketamine 100 mg/mL injection solution 150mg/Ml Susu. Takes intranasal every 3 hrs prn lamoTRIgine 200 mg oral tablet Take 1 tablet by mouth every morning and 2 tablets by mo uth every evening levonorgestrel (MIRENA) 20 mcg/24 hr Intrauterine IUD 1 Each by Intrauterine route once . May be removed and replaced with a new unit at anytime during menstrual cycle; do not leav e any one system in place for > 5 years. LORazepam 1 mg Oral Tablet Take 2 mg by mouth every four hours as needed. metoclopramide HCl 10 mg oral tablet Take 10 mg by mouth every six hours as needed. naltrexone 50 mg oral tablet ondansetron ODT (ZOFRAN ODT) 4 mg oral tablet,disintegrating Dissolve 1 tablet in mouth every twelve hours as needed for nausea/vomiting. ondansetron ODT 4 mg oral tablet,disintegrating Dissolve 1 tablet in mouth every twelve hours as needed. pantoprazole 40 mg oral tablet,delayed release (DR/EC) Take 40 mg by mouth two times da evita. polyethylene glycol 17 gram/dose oral powder Take 17 g by mouth once daily. No current facility-administered medications for this visit. ALLERGIES: Allergies Allergen Reactions Morphine Anaphylaxis PHYSICAL EXAM VS: Filed Vitals: 08/10/2016 2:28 PM Height: 1.651 m (5' 5") Weight: 68.947 kg (152 lb) BP: 105/65 Pulse: 73 Temp: 36.4 C (97.6 F) TempSrc: Oral Resp: 16 PainSc: 07 - Severe to Very Severe BMI: 25.29 kg/(m^2) Gen: Well-appearing female but hunched over and appears uncomfortable HEENT: Sclera clear. Conjunctiva WNL. MMM. CV: Normal S1, S2. RRR. No m/r/g. Pulm: Breathing comfortably. Abd: Normal bowel sounds. Soft, nondistended. Nontender to light and deep palpation in all quadrants. No hepatomegaly appreciated. No rashes or bruises. Ext: Warm, well-perfused. Psych: Alert, oriented. Neuro: Grossly intact. LABS WHITE CELL COUNT (K/cu mm) Date Value 08/08/2016 6.81 HEMOGLOBIN (g/dL) Date Value 08/08/2016 14.1 HEMATOCRIT (%) Date Value 08/08/2016 41.8 PLATELET COUNT (K/cu mm) Date Value 08/08/2016 291 MCV (fL) Date Value 08/08/2016 91.9 RDW SD (fL) Date Value 08/08/2016 40.8 Lab Results Component Value Date NA 143 08/08/2016 K 3.7 08/08/2016 CL 110* 08/08/2016 BICARB 26 08/08/2016 BUN 9 08/08/2016 CR 0.82 08/08/2016 GLU 80 08/08/2016 CA 8.3* 08/08/2016 Lab Results Component Value Date TBILI 0.5 08/08/2016 AP 64 08/08/2016 TP 8.0 08/08/2016 ALB 4.4 08/08/2016 AST 41 08/08/2016 ALT 19 08/08/2016 No components found for: INR No results found for: FERRITIN No results found for: ESR No results found for: CRP ASSESSMENT 26 F PMHx depression, complex regional pain syndrome(CRPS) who presents for management of N /V and abdominal pain most likely due to severe constipation vs IBS/functional pain vs GERD. She was referred for management of gastroparesis which was thought to be the working diagn osis for her nausea, emesis and abdominal pain. However, in reviewing her records gastropare sis is unlikely. ALthough her GES from October does show an initial delay in emptying by fo ur hours she has normal emptying. This is not consistent with gastroparesis and would not ex pect pain as predominant symptom for delayed gastric emptying. Given negative side effects o f reglan, no relief with domperidone and no clear objective evidence of gastroparesis have a sked her to stop this medication as risks outweigh benefits. Her predominant symptom at this point his abdominal pain. Given her extensive negative wor k-up, I think most likely explanation for her abdominal pain, N/V is severe constipation giv en extremely high stool burden on CT form versus functional syndrome. 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 Will start by giving two day prep and assessing if sxs improve with cleaning out her stool burden. Her mom has a hx of colonic inertia and patient has long standing hx of constipation for her entire life. Etiology of severe constipation unclear-will refer for ARM. This will clarify cause constipation and help direct therapy. If negative ARM would refer for cahyo rabago study to eval for colonic inertia. Hold off on colonoscopy for now as ARM and siz marker study seem higher yield and pre-test probability for malignancy lower in 26 year old patien t. RECOMMENDATIONS: #Abdominal pain, Nausea, emesis 1. Stop reglan 2. PCP could consider zofran or low dose ativan for symptomatic relief of N/V 3. Two day golytely prep for relief of constipation -will aim to clean out patient and get her on regular bowel regiment 4. Anorectal manometry to clarify etiology of severe long standing constipation -if testing negative sitz marker study to look for colonic inertia. -possible colonoscopy in future. 5. Considered bentyl but will hold off on this given constipation is a side effect 6. Increase PPI to 40 mg BID -If other w/u unrevealing could consider impedance or pH study to assess whether patient still refluxing on PPI tx as she has had objective evidence of reflux on Upper GI, EGD and improvement with PPI in past Return to clinic 2 months. Thank you for this consult. This plan was discussed and formulated with the GI attending, Parth Lin. Ava Carbajal MD Fellow, Gastroenterology documented in this encounter Plan of Treatment Not on filedocumented as of this encounter Visit Diagnoses + + | Diagnosis | + + | Constipation, unspecified constipation type - Primary | + + documented in this encounter
--- OUTSIDE RECORDS SUMMARY | ~2020-03-23 | XMS | Encounter Summary ---
Demographics + + + | Address | [address] | | | [place] [address] | + + + | Home Phone | | + + + | Preferred Language | Unknown | + + + | Marital Status | Single | + + + | Mandaen Affiliation | FMD | + + + | Race | White | + + + | Ethnic Group | Not or | + + + Author + + + | Author | [facility] | + + + | Organization | [facility] | + + + | Address | Unknown | + + + | Phone | Unavailable | + + + Support + + +---------+ + | Name | Relationship | Address | Phone | + + +---------+ + | Patricia Colin | ECON | Unknown | | + + +---------+ + Care Team Providers + +------+ + | Care Carton And Can Supply Supervisor Name | Role | Phone | + +------+ + | Justo Vazquez MD | PCP | | + +------+ + Reason for Referral Consultation (Routine) +--------+---------+ + + + + | Status | Reason | Specialty | Diagnoses / | Referred By | Referred To | | | | | Procedures | Contact | Contact | +--------+---------+ + + + + | Closed | Other | Pain | Diagnoses | Marcelo, | Scott May | | | | Management | Epigastric | Vern Torres NP | D, [address] | | | | | pain | [address] | [address] | | | | | Spasticity | Ave | [facility] [place] | | | | | Procedures | [facility] [place] | [address] | | | | | CONSULT TO | [address] | Phone: | | | | | PAIN | Phone: | [phone] | | | | | MANAGEMENT | [phone] | Fax: | | | | | | Fax: | [phone] | | | | | | [phone] | | +--------+---------+ + + + + Consult to [place] (Routine) +--------+---------+ + + + + | Status | Reason | Specialty | Diagnoses / | Referred By | Referred To | | | | | Procedures | Contact | Contact | +--------+---------+ + + + + | Closed | Other | Pain | Diagnoses | Matro, | Ani, Richie | | | | Management | | MD Celia | MD Brendan [address] | | | | | Fibromyalgia | [address] | [address] | | | | | Spasticity | Ave | [address] | | | | | Epigastric | [place], [place] | [address] [place], | | | | | pain | [address] | [place] | | | | | Procedures | Phone: | [phone] | | | | | REQUEST TO | [phone] | Phone: | | | | | SURGERY | Fax: | [phone] | | | | | 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 | [phone] | Fax: | | | | | PA INJECT | | [phone] | | | | | TRIGGER | | | | | | | POINT, 1 [place] | | | | | | | 2 PA INJECT | | | | | | | TRIGGER | | | | | | | POINTS, > 3 | | | +--------+---------+ + + + + Reason for Visit + + + | Reason | Comments | + + + | Abdominal pain | | + + + | Back pain | | + + + | Foot pain | | + + + Consultation (Routine) +--------+--------+ + + + + | Status | Reason | Specialty | Diagnoses / | Referred By | Referred To | | | | | Procedures | Contact | Contact | +--------+--------+ + + + + | Closed | | Pain Medicine | Diagnoses | Chasity, | Slab Stripper Chh1 | | | | / Pain | Abdominal | MD Kenny | [address] | | | | Management | pain, | [address] | [address] | | | | | unspecified | [facility] | Mailcode: | | | | | location | Rd | [facility] | | | | | Procedures | [place], [place] | for Health | | | | | CONSULT TO | [address] | and Healing, | | | | | PAIN | | Building | | | | | MANAGEMENT | | [address] | | | | | | | [place], [place] | | | | | | | [address] | | | | | | | Phone: | | | | | | | [phone] | | | | | | | Fax: | | | | | | | [phone] | +--------+--------+ + + + + Encounter Details +--------+---------+ + + + | Date | Type | Department | Care Team | Description | +--------+---------+ + + + | 10/11/ | Office | [facility] | Vern Robertson, | Epigastric pain | | 2017 | Visit | Pain Center at | [facility] [address] | (Primary Dx); | | | | [facility] | [facility] [place] | Spasticity | | | | [address] | [address] | | | | | Mailcode: [facility]15[facility] | [phone] | | | | | [facility] | | | | | | joana Mack, | | | | | | | | | | | | [place], [place] | | | | | | [address] | | | | | | [phone] | | | +--------+---------+ + + + [...] + + + | Blood Pressure | 131/87 | 10/11/2017 1:03 PM | | | | | PST | | + + + + + | Pulse | 93 | 10/11/2017 1:03 PM | | | | | PST | | + + + + + | Temperature | - | - | | + + + + + | Respiratory Rate | 16 | 10/11/2017 1:03 PM | | | | | PST | | + + + + + | Oxygen Saturation | 100% | 10/11/2017 1:03 PM | | | | | PST | | + + + + + | Inhaled Oxygen | - | - | | | Concentration | | | | + + + + + | Weight | 70.3 kg (155 lb) | 10/11/2017 1:03 PM | | | | | PST | | + + + + + | Height | 162.6 cm (5' 4") | 10/11/2017 1:03 PM | | | | | PST | | + + + + + | Body Mass Index | 26.61 | 10/11/2017 1:03 PM | | | | | PST | | + + + + + documented in this encounter Patient Instructions Patient Instructions Vern Robertson NP - 10/11/2017 1:15 PM Shona Farah, It was great meeting you. I commend you for your strength and wisdom in working with your c hronic pain. You are a true warrior! * Please sign up for [email or web address]. This is the best way to communicate with me. It will save you time in the long run. The procedure you discussed with your doctor is called: Trigger point injection of abdomina l scar. Please make sure this is scheduled with the [facility] [employer] [facility]. PRE-PROCEDURE INSTRUCTIONS 1. Please bring a road driver with you as we may give you medications that impair your ability to drive. This is necessary even if you do not receive sedation. You may take a taxi or ri [place] if you are accompanied by a responsible individual. 2. You may not eat ANY food 8 hours prior to your scheduled appointment time. You may drink clear liquids until 2 hours prior to your scheduled appointment time. You ma y drink up to 2 ounces at that time. The clear liquids you may have are: Water Cranberry or Apple juice Black coffee or tea with sugar No milk or cream in coffee o r tea 3. On the day of your procedure, please take all of your regularly scheduled medications. You may drink enough water to take your medications. 4. If you are taking anticoagulants or blood thinning medications (other than aspirin), [facility] doctor who is doing your procedure will communicate with the provider who is prescribing y our anticoagulant therapy. If you do not have clear instructions on what to do with your an ticoagulant by 2 weeks before your procedure, please contact [facility] to cl arify your instructions. The phone number for questions or concerns is [phone]. * Consider Lidoderm topical or compound prescription of baclofen with PCP. * Brandon 500-1000 mg 3-4 times a day for nausea and vomiting. * Consider workup with hematology and rheumatology for there input. * Consider a trial Baclofen for muscle spasticity with your PCP. Take this as you feel the spasticity coming on. Oral: Initial: 5 mg 3 times daily; may increase by 5 mg per dose every 3 days (ie, 5 mg 3 t imes daily for 3 days, then 10 mg 3 times daily for 3 days, etc.) until optimal response is reached. Usual dosage range: 40 to 80 mg daily. Do not exceed 80 mg daily (20 mg 4 times zoë ly). * Refer for acupuncture. * Having normal levels of Vitamin D, Vitamin B12, serum magnesium, testosterone, hs-CRP (in flammation) and thyroid markers are important for the evaluation of chronic pain. If you wou ld like to meet with me to review these labs please make an appointment. If your PCP is not reviewing these with you, I will be glad to order the necessary labs for you. * Consider hot epsom salt baths daily and Magnesium Glycinate 400-800 mg daily for relaxati on and muscle pain and tightness. Magnesium Glycinate: Glycine is a well-known calming amino acid. This combination has good bioavailability and does not have a laxative effect since glycine is actively transported th rough the intestinal wall. Due to the calming and relaxing effect of both glycine and magnes ium, this combination has been used successfully for chronic pain and muscle hyper tonicity. * Consider increasing your [place] 3 fats. [place]-3 fats are precursors to mediators of inflammation called prostaglandins. (In fact, t hat is how anti-inflammatory painkillers work, by manipulating prostaglandins.) Good sources include wild caught Alaskan salmon, sardines and anchovies, which are all high in healthy o cha-3s while being low in contaminants such as mercury. You may also take a supplement of f huma oil or krill oil if approved by your PCP or narcotics agent. * Eliminate High Fructose Hayden Syrup and Sugar from your diet as much as possible. Research shows that chronic exposure to high fructose corn syrup had an impact on both the neural and behavioural responses to oxycodone, resulting in changes likely to affect drug-ta debbie and drug-seeking behaviour. They suggest that a high sugar diet may dampen the reward a ssociated with a given dose of oxycodone. And that this may cause people to consume more of the drug. * Follow up with Dr Sanchez for CRPS if needed. * Follow up with your PCP to review treatment plan. * Follow up with [facility] as needed. It was good to see you today. Thank you for taking the time to see us in the [facility] today. As a reminder, this clinic generally does not prescribe or dispense medi cations. We will send a copy of our notes, including detailed recommendations, to your prim lance care provider (PCP). Any prescriptions will need to come from that provider. Please con tact their office within the next few days to make an appointment to get started with our re commendations. Below is a short summary of what we discussed today for your reference. documented in this encounter Progress Notes Estefany March MA - 10/11/2017 1:15 PM PSTCMA History: 1. Has your pain changed from your last visit? increased 2. Do your medications cause any side effects? YES 3. Have you had physical therapy appointments since your last visit? NO 4. Have you had psychology appointments since your last visit? YES 5. Have you had any diagnostic studies since your last appointment? YES 6. Do you require any medication refills today? NO ROS:. 1. BONES, JOINTS AND MUSCLES atrophy, cramps , joint pain and stiffness 2. GASTROINTESTINAL SYSTEM change in appetite, dysphagia, nausea, constipation and abdomin al pain 3. GENITOURINARY SYSTEM urinary hesitancy 4. NERVOUS SYSTEM numbness, weakness and vertigo 5. PSYCHIATRIC HISTORY sleep disturbance, guilt, decreased energy, concentration , decrea sed or increased appetite, anxiety and social withdrawal Vern Baeza NP - 1 12/11/2016 1:15 PM PST [facility] Return Visit Date: 10/11/2017 Chief Complaint Patient presents with Abdominal pain Back pain Foot pain History of Present Illness: Tracie Farah is a 27 year old female, whose last appoi ntment at the [facility] was 07/11/17 with TERESA Clark, for a clinic visit. At that time our plans were: - Continue increasing Lyrica as outlined above - Start elimination diet and food journal - Follow up after allergy testing These plans were partially implemented. Today she is accompanied by her father and she reports intermittent pain in the upper, mid, and low back, abdomen, and lower left extremity below the knee to the foot. She is in clin ic today to focus on her intermittent abdominal pain and nausea that began 2.5 years ago whi ch she believes may be related to her appendectomy or gall bladder surgeriey that occurred 6 months prior to onset of symptoms (hard to differentiate as surgical procedures were 1 week apart). She describes her abdominal pain as "wrenching" and "like a severe muscle spasm" w ith associated nausea and vomiting. Flares occur 6-8 weeks apart and last 2-6 weeks. She s ays she can predict her flares; three days before pain, nausea, and vomiting, she'll feel "w eak, like I'm weighed down with bags of sand." She was scheduled for a trigger point injection but could not make the appointment due to a sciatic flare up that sent her to the ED (10/05/17). She was treated with promethazine and Toradol which provided moderate symptom relief She reports multiple diagnostic tests conducted at [facility] in [place], [place] including barium swallow and Hydrogen breath test (SIBO), both normal. The surgeon who who performed both of her abdominal surgeries recommended she investigate i ntermittent porphyria. Went to see gastroenterologists, one would not see her because "her case was too complicate d" and another could not provide a diagnosis. She is currently following her recommended gluten/allergen-free diet. She reports CRPS in left leg. Still is interested in a consult with a CRPS doctor. Her pain is made worse by "going untreated, w/o pain management." Her pain is improved by m tanmay. This condition has remained unchanged since Ms. Farah's last visit. She does not have new pain complaints on this visit. Ms. Farah reports that there have been no ch anges in her history since the last appointment. MEDICATIONS: - ketamine 100 mg/mL: provides moderate pain relief for leg pain symptoms - Lyrica: minimal relief for abdominal pain symptoms. Tried: - Cyclobenzaprine 5 mg TID INTERVENTIONS: - Torodol shots: only form of symptom relief. 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 Pain Inventory: (ten= worst possible pain or complete interference) Right Now: 6 Least in 24 hours: 5 Worst in 24 hours: 7 Average: 6 % Relief (med/treat): 70 General Activity: 7 Mood: 6 Walking Ability: 5 Normal Work: 5 Relations with Others: 2 Enjoyment of Life: 6 Sexual Activity: 0 Sleep: 10 Past Medical History: Diagnosis Date Abdominal pain Ankle fracture, left Anxiety Compartment syndrome (HCC) Depression GERD (gastroesophageal reflux disease) Neuroma of lower extremity Other chronic pain Peroneal nerve injury Reflex sympathetic dystrophy of the lower limb Past Surgical History Procedure Laterality Date Tonsillectomy and adenoidectomy Ankle surgery x 9 Fasciotomy Neurectomy foot Nerve block 03/18/11 & 03/25/11 Left lumbar sympathetic ganglion block Hemroidectomy Trial spinal cord stimulator leads 08/02/2012 [facility], Surgeon: Janak Riojas MD Cholecystectomy Appendectomy Other l ankle, port Family History Problem Relation Alcohol/Drug Maternal Grandfather Allergies Maternal Grandfather Arthritis Maternal Grandfather Asthma Maternal Grandfather Stroke Maternal Grandfather Allergies Mother Headache Mother Hypertension Mother Depression Mother Allergies Father Hypertension Father Diabetes Father Allergies Brother Arthritis Maternal Grandmother Headache Maternal Grandmother Arthritis Paternal Grandmother Diabetes Paternal Grandmother Cancer Paternal Grandmother Arthritis Paternal Grandfather Cancer Paternal Grandfather Asthma Brother History Alcohol Use No History Drug Use No Social History Social History Narrative Single. Goes to [employer] with a light load. 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 Has roommates. Allergies Allergen Reactions Morphine Anaphylaxis Current Medication List Name Sig CYCLOBENZAPRINE 5 MG TABLET Take 5 mg by mouth three times daily as needed. Do not use long er than 2-3 weeks. DEXTROMETHORPHAN 20 MG-QUINIDINE 10 MG CAPSULE Take by mouth two times daily. KETAMINE 100 MG/ML INJECTION SOLUTION 20 to 30 sprays in each nostril every 3 hrs as needed for pain as directed by physician. Concentration is 150mg/mL. Compounded by [facility] ) LAMOTRIGINE 200 MG TABLET Take 1 tablet by mouth every morning and 2 tablets by mouth every evening LEVONORGESTREL 20 MCG/24 HR (5 YEARS) INTRAUTERINE DEVICE 1 Each by Intrauterine route once . May be removed and replaced with a new unit at anytime during menstrual cycle; do not leav e any one system in place for > 5 years. LYRICA 225 MG CAPSULE Take 225 mg by mouth two times daily 150mg in am, 225 mg in pm MEMANTINE 28 MG CAPSULE SPRINKLE,EXTENDED RELEASE 24HR Take 28 mg by mouth two times daily. ONDANSETRON 4 MG DISINTEGRATING TABLET Dissolve 1 tablet in mouth every twelve hours as nee ded. PANTOPRAZOLE 40 MG TABLET,DELAYED RELEASE Take 40 mg by mouth once daily. PEG 3350-ELECTROLYTES 236 GRAM-22.74 GRAM-6.74 GRAM-5.86 GRAM SOLUTION Take as directed by [facility]- 2 gallon bowel prep POLYETHYLENE GLYCOL 3350 17 GRAM/DOSE ORAL POWDER Take 17 g by mouth once daily. PROMETHAZINE 12.5 MG TABLET Take 12.5 mg by mouth four times daily as needed for nausea/vom iting. SUCRALFATE 1 GRAM TABLET Take 1 g by mouth four times daily. Radiology/Diagnostic Tests: EXAM: ABDOMEN 1 VIEW - 03/19/17 HISTORY: Nausea, vomiting. Evaluate for constipation/stool burden. COMPARISON: MR arthrography 01/31/17 FINDINGS: No bowel gas pattern without radiographic evidence of small bowel obstruction. Minimal vo lume of fecal matter in colon. No evident pneumatosis, portal venous gas, or pneumoperiton eum. No hepatosplenomegaly or abnormal soft tissue calcification. No evident osseous abn ormality. An IUD is visualized projecting within the suspected location of the uterus. IMPRESSION: Normal. EXAM: MRI Enterography abdomen and pelvis with and without contrast - 01/31/17 HISTORY: Evaluate for lymphoma, intussusception, small bowel Crohns. Complex regional pain syndrome with 3 or 4 weeks of abdominal pain and negative workup (colonoscopy, anorectal man ometry). COMPARISON: CT 10/23/2015. TECHNIQUE: Multiplanar MRI of the abdomen and pelvis was performed without and with gadol inium based intravenous contrast. Three bottles of neutral oral contrast were administered (1500mL). Dynamic post-contrast imaging was performed. FINDINGS: Stomach: No wall thickening or abnormal enhancement. Small Bowel: No dilation, wall edema/thickening or abnormal enhancement. Colon: Normal wall thickness and enhancement. No dilation is seen. Other: Visualized portions of the upper abdominal organs are normal. 6 mm left upper pole r enal cyst. Right corpus luteal cyst. No ascites or lymphadenopathy. IMPRESSION: Unremarkable MR enterography. Most Recent Labs: CBC Lab Results Component Value Date WBC 8.87 03/18/2017 HB 12.9 03/18/2017 HCT 37.1 03/18/2017 PLT 267 03/18/2017 MCV 91.2 03/18/2017 RDW 37.7 03/18/2017 CMP Lab Results Component Value Date NA 141 03/21/2017 K 4.2 03/21/2017 CL 106 03/21/2017 BICARB 29 03/21/2017 BUN 16 03/21/2017 CR 0.86 03/21/2017 GLU 86 03/21/2017 CA 8.4 03/21/2017 AST 9 03/18/2017 ALT 20 03/18/2017 AP 71 03/18/2017 TBILI 0.3 03/18/2017 TP 7.2 03/18/2017 ALB 4.0 03/18/2017 PT/INR Lab Results Component Value Date INRPT 1.06 10/21/2015 Bones, Joints, and Muscles: atrophy, cramps , joint pain and stiffness Gastrointestinal System: change in appetite, dysphagia, nausea, constipation and abdominal pain Genitourinary System: urinary hesitancy Nervous System: numbness, weakness and vertigo Psychiatric History: sleep disturbance, guilt, decreased energy, concentration , decreased or increased appetite, anxiety and social withdrawal Physical Examination: BP 131/87 | Pulse 93 | RR 16 | Ht 1.626 m (5' 4") | Wt 70.3 kg (155 lb) | SpO2 100% | BMI 2 6.61 kg/(m^2) Physical Exam Constitutional: She is well-developed, well-nourished, and in no distress. HENT: Head: Normocephalic and atraumatic. Eyes: Right eye exhibits no discharge. Left eye exhibits no discharge. Neck: No tracheal deviation present. Cardiovascular: Regular rhythm. Abdominal: There is tenderness. Neurological: She is alert. Skin: Skin is warm and dry. No erythema. Psychiatric: Affect normal. Vitals reviewed. Patient Active Problem List Diagnosis CRPS (complex regional pain syndrome), lower limb Gait disturbance Muscle pain Adjustment reaction Pain in joint, lower leg Disturbance in sleep behavior Pain of upper abdomen 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 Irritable bowel syndrome with constipation Intractable cyclical vomiting with nausea Abdominal pain Visit Diagnoses: R10.13 Epigastric pain R25.2 Spasticity For today's evaluation, I have included my personal review of the patient's history and phy sical examination. I also used the following components in my medical decision making: - Laboratory studies reviewed. - Radiology Reports reviewed. - Review old medical records (from [facility]). Pertinent findings include: abdominal surger y - The patients questionnaire was reviewed today. Impression: I went over the history, exam and imaging findings with Tracie Farah today and di scussed the natural history and approach to management of her chronic abdominal pain. Physic al exam and symptoms indicate elements of myofascial pain and spasticity (muscles and pylori c sphincter). We discussed the role of activity and lifestyle modification, belly breathing, pain relief modalities, proper mechanics, judicious short-term use of pain-relievers and an ti-inflammatories, and TPI. Tracie Farah's condition is chronic, complex, multifactorial and would benefit fro m a multidisciplinary approach. I believe it reasonable to trial TPI of the abdominal scar. Patient may also benefit from baclofen, brandon for nausea, topical cream, and acupuncture. T his is a complex case and she may benefit from a work up by hematology for intermittent porp hyria and rheumatology autoimmune disease. Recommendation/Plan: * Trigger point injection of abdominal scar. * Consider Lidoderm topical or compound prescription of baclofen with PCP. * Brandon 500-1000 mg 3-4 times a day for nausea and vomiting. * Consider workup with hematology and rheumatology for there input. * Consider a trial Baclofen for muscle spasticity with your PCP. Take this as you feel the spasticity coming on. * Refer for acupuncture. * Follow up with Dr Sanchez for CRPS if needed. * Follow up with your PCP to review treatment plan. * Follow up with [facility] as needed. I, Guillermo Michaels, am scribing for Vern Robertson NP on 10/11/2017 I have reviewed and verified the above scribed note of my visit with this patient as record ed by Guillermo Hope. Vern Robertson NP [facility] [address]LO[address] [facility] [address] Mail Code: [address] [place] [address] documented in this e ncounter Plan of Treatment Not on filedocumented as of this encounter Visit Diagnoses + + | Diagnosis | + + | Epigastric pain - Primary Abdominal pain, epigastric | + + | Spasticity Abnormal involuntary movements | + + documented in this encounter
--- OUTSIDE RECORDS SUMMARY | ~2020-03-23 | XMS | Encounter Summary ---
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 | | | | Therapy | CRPS | Janak Martinez MD | [address] | | | | | (complex | [address] | | | | | regional | [address] | Mailcode: | | | | | pain | Mailstop | [facility] | | | | | syndrome), | [id number] | for Health | | | | | lower limb | [place], [place] | and Healing, | | | | | Gait | [address] | Building [address] | | | | | disturbance | Phone: | [place], [place] | | | | | Muscle pain | [phone] | [phone] | | | | | Procedures | Fax: | Phone: | | | | | PHYSICAL | [phone] | [phone] | | | | | THERAPY | | | | | | | REFERRAL | | | +--------+--------+ + + + + Encounter Details +--------+---------+ + + + | Date | Type | Department | Care Team | Description | +--------+---------+ + + + | 06/07/ | Office | [facility] | Guillermo Sanon I, | CRPS (complex | | 2011 | Visit | Therapy Services at | PT [address] | regional pain | | | | [facility] | [place] [address] | syndrome), lower | | | | [address] | [phone] | limb (Primary Dx) | | | | Mailcode: [facility] | | | | | | [facility] | | | | | | and Healing, | | | | | | [address] | | | | | | Floor [place], [place] | | | | | | [address] | | | | | | [phone] | | | +--------+---------+ + + + [...] + + documented as of this encounter Patient Instructions Patient Instructions Guillermo Sanon I, PT - 06/07/2012 1:45 PM PDTHome exercises: Static cervical isometerics in four directions 10 x10 Segmental Lower trunk rotation Shoulder scaption 1# unilateral Low rows yellow theraband. Desensitization program starting with cotton balls with mirror Palmar grasp inhibition Walking as tolerated Bird dogs Oblique abdominal strengthening 10 x 10 Bridging 10 x 10 Bridging with marching 10 x 10 documented in this encounter Progress Notes Guillermo Sanon I, PT - 06/07/2012 1:02 PM PDTFormatting of this note might be different f rom the original. [id number] BRODY FARAH Date of : 1990 Start of care: 02/14/2012 Date of onset: 02/14/2012 Referring/Attending Practitioner: Janak Riojas MD . Primary/Referral Diagnosis/ICD-9: 355.71B CRPS (complex regional pain syndrome), lower limb Insurance: [facility]or: [facility] Plan: BCBS OUT OF STATE Product Type: PP O Service period from: 02/14/2012 to: 08/12/2012 Number visits used/authorized: 04/25 [facility] PHYSICAL THERAPY PROGRESS NOTE SUBJECTIVE: Age: 21 y.o. Sex: female Chief complaint: foot pain Current: pt was OK post last treatment. She saw Dr Riojas. She is doing her home exercise p dimitris. History of Presenting Problems: Brody Farah is a 21 y.o. female complaining of l eft foot pain. She broke her ankle when she was 12 and had several surgeries, and has been u sing crutches off and on all of this time. She thinks she developed CRPS in 2004 after a fabi emily surgery. Ever since then she had this nerve pain. She has seen numerous doctors and had two sympathetic nerve blocks. She saw Dr Riojas today already. Pain rating at present: 7 /10 Symptoms are aggravated by: waking up in the morning, standing, walking, touching it, wind or a fan, rain, cold, TENS is bad. Pain is relieved by: sometimes pain meds. Objective Observation/posture: pt is alone in NAD. She is not using crutches and has minimal if any l imp. Neuro Screen Lower Quarter Neurodynamics: Test Date 06/05/2012 06/07/2012 Sit slump: Right: positive -20 degrees knee extension + cervical diff Left: positive -30 degrees knee extension + cervical diff Left -30 degrees in full slump + cervical diff SLR: Right: positive 40 degrees lbp + ankle diff Left: coud not test secondary to pain with contact Right: positive 40 degrees lbp + ankl e diff Left: 25 degrees Palpation: tender left low lumbar Baselines Activity 06/07/2012 06/05/2012 05/24/2012 05/10/2012 05/03/2012 Walk without crutches Not this week 5- 8 minutes 1/4 mile 1/4 mile unilateral rows Tiw 8lbs 3x15 7.5 x 5 scaption 0# to fatigue 1# 1x15 0# to fatigue amb with body weight support treadmill 13 minutes 30%support 1.2 mph Bird dogs 10x10 desensitization Rubbing unaffected foot with mirror Rice Cotton balls Treatment provided: Bird dogs left lumbar gapping in right sidelying Kick your head off desensitization with foot in mirror Oblique abdominal strengthening 10 x 10 sec (8 breaths) Bridging Bridging with marching Home exercises: Static cervical isometerics in four directions 10 x10 Segmental Lower trunk rotation Shoulder scaption 1# unilateral Low rows yellow theraband. Desensitization program with mirrorPalmar grasp inhibition Walking as tolerated Bird dogs Oblique abdominal strengthening 10 x 10 Bridging 10 x 10 Bridging with marching 10 x 10 Treatment began: 1600hrs Treatment ended: 1700hrs Manual therapy: 15min Therapeutic exercise: 45 min ASSESSMENT: pt is still working on adverse response to neural tension. I changed up her dada ensitization today so that she is rubbing her unaffected foot while looking in the mirror. Date Goals Time Frame Status 05/03/2012 Independent with home exercise program for cervical stabilization and upper quar ter endurance 4 weeks 05/03/2012 Independent in pain management strategies 4 weeks 05/03/2012 Pt will be able to walk for .5 miles without a lasting increase in pain 8 week s Further goals to be determined next visit. Rehab Potential: Fair Goals discussed and agreed upon with Brody and family. Individual cultural and social needs addressed. PLAN: cervical stabilization, upper quarter endurance, desensitization, ankle ROM (but slow ly) Frequency/Duration: two per week x four weeks; one per month x two months; one per three mo nths x six months. Total visits: 12 Discharge needs: none anticipated This note is to serve as the discharge summary if Brody fails to attend further Physical Th erapy appointments or contact the therapist regarding any change in their status. Guillermo Sanon MSPT [facility] Outpatient Rehabilitation Services Mailcode: Ch3p [address] [facility] [facility] [address] documented in this encounter Plan of Treatment Not on filedocumented as of this encounter Procedures + +--------+ + + + | Procedure Name | Priori | Date/Time | Associated Diagnosis | Comments | | | ty | | | | + +--------+ + + + | NC THERAPEUTIC | Routin | 06/13/2012 | CRPS (complex | | | EXERCISES | e | 5:41 PM | regional pain | | | | | PDT | syndrome), lower | | | | | | limb | | + +--------+ + + + documented in this encounter Visit Diagnoses + + | Diagnosis | + + | CRPS (complex regional pain syndrome), lower limb - Primary Causalgia of lower limb | + + documented in this encounter"
--- OUTSIDE RECORDS SUMMARY | ~2020-03-23 | XMS | Encounter Summary ---
Demographics + + + | Address | [address] | | | [place] [address] | + + + | Home Phone [...] Author + + + | Author | [facility] | + + + | Organization | [facility] | + + + | Address | Unknown | + + + | Phone | Unavailable | + + + Support + + +---------+ + | Name | Relationship | Address | Phone | + + +---------+ + | Patricia Colin | ECON | Unknown | | + + +---------+ + Care Team Providers + +------+ + | Care Optical Instrument Assembly Supervisor Name | Role | Phone | + +------+ + | Justo Vazquez MD | PCP | | + +------+ + Reason for Visit + + + | Reason | Comments | + + + | Procedure | | + + + Encounter Details +--------+ + + + + | Date | Type | Department | Care Team | Description | +--------+ + + + + | 08/25/ | Telephone | [facility] | Ilene Bright, | Procedure | | 2016 | | Pain Center at | ARRANGER ASSEMBLER [address] | | | | | [facility] | [place], [place] | | | | | [address] | [address] | | | | | Mailcode: CH15P | [phone] | | | | | [facility] | | | | | | joana Mack, | | | | | | Building | | | | | | [place], [place] | | | | | | [address] | | | | | | [phone] | | | +--------+ + + + [...]
--- OUTSIDE RECORDS SUMMARY | ~2020-03-23 | XMS | Encounter Summary ---
Demographics + + + | Address | [address] | | | [place] [address] | + + + | Home Phone | | + + + | Preferred Language | Unknown | + + + | Marital Status | Single | + + + | Spiritism Affiliation | FMD | + + + | Race | White | + + + | Ethnic Group | Not or | + + + Author + + + | Author | [facility] | + + + | Organization | [facility] | + + + | Address | Unknown | + + + | Phone | Unavailable | + + + Support + + +---------+ + | Name | Relationship | Address | Phone | + + +---------+ + | Patricia Colin | ECON | Unknown | | + + +---------+ + Care Team Providers + +------+ + | Care Tunneller Name | Role | Phone | + [...] | +--------+ + + + + | 04/07/ | Telephone | [facility] | Janak Riojas, | Question | | 2011 | | Pain Center at | [address] | | | | | [facility] | St [address] [id number] | | | | | [address] | [place], [place] | | | | | Mailcode: CH15P | [address] | | | | | [facility] | [phone] | | | | | and Healing, | | | | | | [facility] | | | | | | [place], [place] | | | | | | [address] | | | | | | [phone] | | | +--------+ + + + [...]
--- OUTSIDE RECORDS SUMMARY | ~2020-03-23 | XMS | Encounter Summary ---
Demographics + + + | Address | [address] | | | [place] [address] | + + + | Home Phone | | + + + | Preferred Language | Unknown | + + + | Marital Status | Single | + + + | Confucianist Affiliation | FMD | + + + [...] Team Providers + +------+ + | Care Ichthyology Teacher Name | Role | Phone | + +------+ + | Justo Vazquez MD | PCP | | + +------+ + Encounter Details +--------+ + + + + | Date | Type | Department | Care Team | Description | +--------+ + + + + | 08/30/ | Documentati | Pain Center at [facility] | Jamel Madden G, | | | 2018 | on | [address] | PhD [address] | | | | | Mailcode: CH15P | [facility] [place] | | | | | [place] for [facility] | [address] | | | | | and Healing, | [phone] | | | | | | | | | | | Floor [facility] [place] | | | | | | [address] | | | | | | [phone] | | | +--------+ + + + [...]
--- OUTSIDE RECORDS SUMMARY | ~2020-03-23 | XMS | Encounter Summary ---
Demographics + + + | Address | [address] | | | [place] [address] | + + + | Home Phone [...] + + + | Author | [facility] | + + + | Organization | [facility] | + + + | Address | Unknown | + + + | Phone | Unavailable | + + + Support + + +---------+ + | Name | Relationship | Address | Phone | + + +---------+ + | Patricia Colin | ECON | Unknown | | + + +---------+ + Care Team Providers + +------+ + | Care Nurse Charge Rn Name | Role | Phone | + +------+ + | Justo Vazquez MD | PCP | | + +------+ + Reason for Visit + + + | Reason | Comments | + + + | Constipation | | + + + Encounter Details +--------+ + + + + | Date | Type | Department | Care Team | Description | +--------+ + + + + | 08/20/ | Telephone | [facility] | Ava Carbajal | Constipation | | 2016 | | Center at [facility] [address] | MD Melissa | | | | | [address] | | | | | | Mailcode: Center | | | | | | for Health and | | | | | | Healing, Building [address] | | | | | | [place], [place] | | | | | | [address] | | | | | | [phone] | | | +--------+ + + + [...]
--- OUTSIDE RECORDS SUMMARY | ~2020-03-23 | XMS | Encounter Summary ---
Demographics + + + | Address | [address] | | | [place] [address] | + + + | Home Phone | | + + + | Preferred Language | Unknown | + + + | Marital Status | Single | + + + | Nondenominational Affiliation | FMD | + + + [...] Team Providers + +------+ + | Care Cotton Gin Yard Supervisor Name | Role | Phone | [...] | Other | Pain | Diagnoses | Chasity, | Carlos, | | | | Management | Abdominal | MD Kenny | Evelia Torres, | | | | | pain, | [address] | [address] | | | | | unspecified | [address] | [address] | | | | | abdominal | Rd | [place], [place] | | | | | location | [facility] [place] | [address] | | | | | Pain of | [address] | Phone: | | | | | upper | | [phone] | | | | | abdomen | | Fax: | | | | | Complex | | [phone] | | | | | regional | | | | | | | pain | | | | | | | syndrome | | | | | | | type 1 of | | | | | | | left lower | | | | | | | extremity | | | | | | | Irritable | | | | | | | bowel | | | | | | | syndrome | | | | | | | with | | | | | | | constipation | | | | | | | Procedures | | | | | | | REQUEST TO | | | | | | | SURGERY | | | | | | | MATRIX PLATER | | | +--------+---------+ + + + + Reason for Visit + + + | Reason | Comments | + + + | Procedure | | + + + Encounter Details +--------+ + + + + | Date | Type | Department | Care Team | Description | +--------+ + + + + | 08/30/ | Telephone | [facility] | Ilene Bright, | Procedure | | 2017 | | Pain Center at | SUPPORT WORKER [address] | | | | | [facility] | [place], [place] | | | | | [address] | [address] | | | | | Mailcode: CH15 | [phone] | | | | | [facility] | | | | | | and Healing, | | | | | | Building | | | | | | Floor [place], [place] | | | | | | [address] | | | | | | [phone] | | | +--------+ + + + [...] | + + | Abdominal pain, unspecified abdominal location - Primary | + + | Pain of upper abdomen Abdominal pain, other specified site | + + | Complex regional pain syndrome type 1 of left lower extremity | + + | Irritable bowel syndrome with constipation Irritable bowel syndrome | + + documented in this encounter"
--- OUTSIDE RECORDS SUMMARY | ~2020-03-23 | XMS | Encounter Summary ---
Demographics + + + | Address | [address] | | | [place] [address] | + + + | Home Phone | | + + + | Preferred Language | Unknown | + + + | Marital Status | Single | + + + | Gnosticist Affiliation | FMD | + + + | Race | White | + + + | Ethnic Group | Not or | + + + Author + + + | Author | [facility] | + + + | Organization | [facility] | + + + | Address | Unknown | + + + | Phone | Unavailable | + + + Support + + +---------+ + | Name | Relationship | Address | Phone | + + +---------+ + | Patricia Colin | ECON | Unknown | | + + +---------+ + Care Team Providers + +------+ + | Care Carpenter Foreman Name | Role | Phone | + +------+ + | uJsto Vazquez MD | PCP | | + +------+ + Encounter Details +--------+ + + + + | Date | Type | Department | Care Team | Description | +--------+ + + + + | 08/03/ | Telephone | [facility] | Alex Sanchez, | | | 2018 | | Pain Center at | ,PhD [address] | | | | | [facility] | [facility] | | | | | [address] | [facility] [place] | | | | | Mailcode: CH15P | [address] | | | | | [place] for [facility] | [phone] | | | | | and Healing, | | | | | | | | | | | | Floor [place], [place] | | | | | | [address] | | | | | | [phone] | | | +--------+ + + + [...]
--- OUTSIDE RECORDS SUMMARY | ~2020-03-23 | XMS | Encounter Summary ---
Demographics + + + | Address | [address] | | | [place] [address] | + + + | Home Phone [...] + + + | Author | [facility] | + + + | Organization | [facility] | + + + | Address | Unknown | + + + | Phone | Unavailable | + + + Support + + +---------+ + | Name | Relationship | Address | Phone | + + +---------+ + | Patricia Colin | ECON | Unknown | | + + +---------+ + Care Team Providers + +------+ + | Care Wiping Cloth Cutter Name | Role | Phone | + [...] + + | 10/21/ | Hospital | [place] [address] | [place], | | | 2015 - | Encounter | [facility] | MD T[address] | | | | | [address] [place] [address] | [facility] | | | 10/25/ | | [place], [place] | [place], [place] | | | 2014 | | [address] | [address] | | | | | [phone] | [phone] | | | | | | | | | | | | Clifton Childers | | | | | | MD Nhan [address] [facility] | | | | | | [facility] | | | | | | [place], [place] | | | | | | [address] | | | | | | [phone] | | | | | | | [...] child. Followed by Dr. Katy berrios at [facility] in [place], [place]. Has been on a stable regimen for [...] agreeable with our plans. Clifton Childers MD Supply Chain Design Manager Division of Hospital Medicine Teaching Attending I [...] child. Followed by Dr. Katy berrios at [facility] in [place], [place], has been on a stable regimen [...] and plan. Lolita Ma MD, MPH Pager #[phone] PGY-1, Anesthesiology [facility] Associated attestation - Clifton Childers MD - [...] agreeable with our plans. Clifton Childers MD Supply Chain Design Manager Division of Hospital Medicine Teaching Attending I [...] child. Followed by Dr. Katy berrios at [facility] in [place], [place], has been on a stable regimen for [...] and plan. Lolita Ma MD, MPH Pager #[phone] PGY-1, Anesthesiology [facility] Associated attestation - Clifton Childers MD - [...] history, primarily secondary to CPRS in the [facility] ng of complicated ankle fracture age ~12 [...] would like the patient to establish in snf counseling and/or CBT as an outpatient if willing. Patient/Family Goals & Expectations: Above problems discussed with the patient who understands and is agreeable with our plans. Clifton Childers MD Supply Chain Design Manager Division of Hospital Medicine Teaching Attending I [...] good coping mechanism Heme/Lymphatic: negative Endocrine: negative Manager Sign: negative Past Medical History: History of chronic [...] for he r CRPS in the pastm [facility] pharmacy does not carry this so we are trying to arrange for her to take her home medication via pharmacy approval 5. APS will sign off but please call with questions/concerns Aba Dorman MD, PGY 3 Card Grader [place]-2 APS Pager: [phone] BILLING INFORMATION Deferred to attending physician. Ms. [...] up at this point. Please contact APS (#[phone]) if further assistance is needed. Ulices Lopez MD BILLING INFORMATION [facility] DEPARTMENT: [phone] Place of Service:- Inpatient Date of Service: 10/23/2015 CSN: [id number] Suggested Modifier: GC - Resident Involved Suggested CPT: 48746 - Follow up visit (includes PNB) - [...] today recd call from Dr. Madrid from [facility]. She has known pt for many yea rs and suggested ketamine and propofol gtt. Updated her on APS recommendations. She will hav e her office fax her clinic records to us. Pt was seen with Dr. Childers. Milton Moreau MD PGY-3, Internal Medicine Pager [phone] Pro Edwards RN - 10/22/2015 10:06 AM PSTActing as scribe for the UR Committee Physician named below. The primary medical team for this patient and the [facility] UR Committee have agreed after furth er study that an inpatient admission was not medically necessary. This hospital stay is con verted to an outpatient stay through use of Medicare Condition Code 44. The patient was not ified of this change in writing. The providers involved in this decision were: For patient s primary medical team: Melissa Childers MD For [facility] UR Committee: Kerry HARRIS RN CM ACM [...] | | | LABORATORY | | | [facility] | | | SERVICES, | | | [...] | + + + + + | [facility] | [address] | [place] [address] | | | SERVICES, CORE | PARK [...] | | + +---------+ + + | [facility] DEPARTMENT OF | | | | | [...] | + + + | STAT | [facility] | | | LABORATORY | | | LILLIAN CROSS | + + + + + + + + | Performing | Address | City/State/Zipcode | Phone Number | | Organization | | | | + + + + + | [facility] | [address] | [place] [address] | | | SERVICESLILLIAN | [address] [...] | | | LABORATORY | | | [place] | | | SERVICES, | | | [...] the MDRD equation recommended by the | [facility] | | National Kidney Disease Education Program. [...] + + | [facility] | [address] | [place] [address] | | | SERVICES, CORE | PARK [...] | + + + + + | [employer] | [address] | [place] [address] | | | SERVICES, CORE | [place] [...] [facility] | [address] | [place] [address] | | | SERVICES, CORE | PARK [...] | + + + + + | [facility] | [address] | [place] [address] | | | SERVICES, CORE | PARK [...] | + + + + + | [facility] | [address] [facility] | [place] [address] | | | SERVICES, CORE | [place]ER[place] [...] | | | LABORATORY | | | [facility] | | | SERVICES, | | | [...] KEVIN SHAH | [address] | [place] [address] | | | SERVICES, CORE | PARK [...] | | | | | 1 dose, [facility] 10/23/15 at 1245 | | PM PST | | | | + +-------+ +-------+---+---+ +---+---+ | | | +---+---+ + +-------+ +--------+---+---+ | ibuprofen (MOTRIN) tablet 600 | Given | 10/25/20 | 600 mg | | | | mg 600 mg, oral, EVERY 6 HOURS, | | 15 8:05 | | | | | First dose on [facility] 10/23/15 at | | AM PST | [...] | | | | | NEEDED, Starting [facility] 10/23/15 at | | | | | [...]
--- OUTSIDE RECORDS SUMMARY | ~2020-03-23 | XMS | Encounter Summary ---
Demographics + + + | Address | [address] | | | [place] [address] | + + + | Home Phone [...] Team Providers + +------+ + | Care Outdoor Landscape Architect Name | Role | Phone | + +------+ + | Justo Vazquez MD | PCP | | + +------+ + Encounter Details +--------+ + + + + | Date | Type | Department | Care Team | Description | +--------+ + + + + | 04/23/ | Pharmacy | [facility] | | | | 2019 | Visit | & [facility] Pharmacy | | | | | | [address] | | | | | | Mailcode: [place] | | | | | | [facility] Health and | | | | | | Healing, [address] | | | | | | [place], [place] | | | | | | [address] | | | | | | [phone] | | | +--------+ + + + [...]
--- OUTSIDE RECORDS SUMMARY | ~2020-03-23 | XMS | Encounter Summary ---
Demographics + + + | Address | [address] | | | [place] [address] | + + + | Home Phone [...] Team Providers + +------+ + | Care Conditioning Machine Operator Name | Role | Phone | + +------+ + | Justo Vazquez MD | PCP | | + +------+ + Encounter Details +--------+ + + + + | Date | Type | Department | Care Team | Description | +--------+ + + + + | 08/07/ | Telephone | [facility] | Alex Sanchez, | | | 2019 | | Pain Center at | ,PhD [address] | | | | | [facility] | [facility] [address] | | | | | [address] | [facility] [place] | | | | | Mailcode: CH15P | [address] | | | | | [place] for [facility] | [phone] | | | | | and Healing, | | | | | | | | | | | | Floor [place], [place] | | | | | | [address] | | | | | | [phone] | | | +--------+ + + + [...]
--- OUTSIDE RECORDS SUMMARY | ~2020-03-23 | XMS | Encounter Summary ---
Demographics + + + | Address | [address] | | | [place] [address] | + + + | Home Phone | | + + + | Preferred Language | Unknown | + + + | Marital Status | Single | + + + | Jehovah'S Witness Affiliation | FMD | + + + [...] Team Providers + +------+ + | Care Investigator Utility Bill Complaints Name | Role | Phone | + +------+ + | Allegra Gandhi | PCP | | + +------+ + Reason for Referral Diagnostic Testing (Routine) +--------+--------+ + + + + | Status | Reason | Specialty | Diagnoses / | Referred By | Referred To | | | | | Procedures | Contact | Contact | +--------+--------+ + + + + | Closed | | Radiology | Diagnoses | Beulah | Rad Nuc Med | | | | | CRPS | Dale Martinez MD | [facility] [address] | | | | | (complex | [address] | [address] | | | | | regional | [address] | [address] | | | | | pain | Mailstop | [place], | | | | | syndrome), | [id number] | Basement | | | | | lower limb | [place], [place] | [place], [place] | | | | | Procedures | [phone] | [address] | | | | | NM BONE &/OR | Phone: | Phone: | | | | | JOINT | [phone] | [phone] | | | | | IMAGING 3 | Fax: | Fax: | | | | | PHASE | [phone] | [phone] | +--------+--------+ + + + + Consult to [place] (Routine) +--------+--------+ + + + + | Status | Reason | Specialty | Diagnoses / | Referred By | Referred To | | | | | Procedures | Contact | Contact | +--------+--------+ + + + + | Closed | | Pain | Diagnoses | Oksana, | Beulah, | | | | Management | CRPS | Allegra Nieto, | Dale Martinez MD | | | | | (complex | [place] | [address] | | | | | regional | [place] | [address] | | | | | pain | FAMILY | Mailstop | | | | | syndrome), | MEDICINE P | [id number] | | | | | lower limb | [address] | [place], [place] | | | | | Gait | [place], | [address] | | | | | disturbance | [place] [address] | Phone: | | | | | Muscle pain | Phone: | [phone] | | | | | Procedures | [phone] | Fax: | | | | | REQUEST TO | Fax: | [phone] | | | | | SURGERY | [phone] | | | | | | SUPER[employer]OR [employer] | | | +--------+--------+ + + + + Consultation (Routine) +--------+--------+ + + + + | Status | Reason | Specialty | Diagnoses / | Referred By | Referred To | | | | | Procedures | Contact | Contact | +--------+--------+ + + + + | Closed | | Psychology / | Diagnoses | 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, | 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 Psych | | | | Pain | CRPS | Dale Martinez MD | [facility] [address] | | | | Management | (complex | [address] | | | | | regional | [address] | Mailcode: | | | | | pain | Mailstop | [facility] | | | | | syndrome), | [id number] | for Health | | | | | lower limb | [place], [place] | and Healing, | | | | | Gait | [address] | [address], | | | | | disturbance | Phone: | 15th Floor | | | | | Muscle pain | [phone] | [place], [place] | | | | | Procedures | Fax: | [address] | | | | | CONSULT TO | [phone] | Phone: | | | | | PAIN CENTER | | [phone] | | | | | | | Fax: | | | | | | | [phone] | +--------+--------+ + + + + Physical Therapy (Routine) +--------+--------+ + + + + | Status | Reason | Specialty | Diagnoses / | Referred By | Referred To | | | | | Procedures | Contact | Contact | +--------+--------+ + + + + | Closed | | Physical | Diagnoses | Beulah, | Edu Pt 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 | | | | Therapy | CRPS | Dale Martienz MD | [facility] [address] | | | | | (complex | [address] | | | | | regional | [address] | Mailcode: | | | | | pain | Mailstop | [facility] | | | | | syndrome), | [id number] | for Health | | | | | lower limb | [place], [place] | and Healing, | | | | | Gait | [address] | [address] | | | | | disturbance | Phone: | [place], [place] | | | | | Muscle pain | [phone] | [address] | | | | | Procedures | Fax: | Phone: | | | | | PHYSICAL | [phone] | [phone] | | | | | THERAPY | | | | | | | REFERRAL | | | +--------+--------+ + + + + Reason for Visit + + + | Reason | Comments | + + + | Pain in left leg | | + + + | Ankle pain | left | + + + Consultation (Routine) +--------+--------+ + + + + | Status | Reason | Specialty | Diagnoses / | Referred By | Referred To | | | | | Procedures | Contact | Contact | +--------+--------+ + + + + | Closed | | Pain | Diagnoses | Oksana, | Beulah, | | | | Management | Chronic | Allegra Nieto, | Dale Martinez MD | | | | | pain Reflex | [place] | [address] | | | | | sympathetic | [place] | [address]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 | FAMILY | [address] | | | | | of lower | MEDICINE P | [id number] | | | | | limb | [address] | [place], [place] | | | | | | [place], | [address] | | | | | | [place] [address] | Phone: | | | | | | Phone: | [phone] | | | | | | [phone] | Fax: | | | | | | Fax: | [phone] | | | | | | [phone] | | +--------+--------+ + + + + Encounter Details +--------+---------+ + + + | Date | Type | Department | Care Team | Description | +--------+---------+ + + + | 02/13/ | Office | [facility] | Dale Cantu, | CRPS (complex | | 2011 | Visit | Pain Center at | MD [address] | regional pain | | | | [facility] | [address] [place] [id number] | syndrome), lower | | | | [address] | [place], [place] | limb; Gait | | | | Mailcode: [id number] | [address] | disturbance; Muscle | | | | [facility] | [phone] | pain; Adjustment | | | | and Healing, | | reaction | | | | Building | | | | | | Floor [place], [place] | | | | | | [address] | | | | | | [phone] | | | +--------+---------+ + + + [...] + + + | Blood Pressure | 144/67 | 02/14/2012 9:03 AM | | | | | PDT | | + + + + + | Pulse | 100 | 02/14/2012 9:03 AM | | | | | PDT | | + + + + + | Temperature | 36.1 C (97 F) | 02/14/2012 9:03 AM | | | | | PDT | | + + + + + | Respiratory Rate | 16 | 02/14/2012 9:03 AM | | | | | PDT | | + + + + + | Oxygen Saturation | 97% | 02/14/2012 9:03 AM | | | | | PDT | | + + + + + | Inhaled Oxygen | - | - | | | Concentration | | | | + + + + + | Weight | 74.8 kg (165 lb) | 02/14/2012 9:03 AM | | | | | PDT | | + + + + + | Height | 165.1 cm (5' 5") | 02/14/2012 9:03 AM | | | | | PDT | | + + + + + | Body Mass Index | 27.46 | 02/14/2012 9:03 AM | | | | | PDT | | + + + + + documented in this encounter Patient Instructions Patient Instructions Dale Cantu MD - 02/14/2012 10:53 AM PDTThis is a copy of the caden ft of my suggestions to your doctors. Meds not tried: Memantine, bisphosphonates, ketamine, IVIG. Other treatment options for the future: Consider a trial of Spinal Cord Stimulation (SCS). SCS has good evidence of efficacy in CRPS and other neuropathic pain conditions. The init ial step is placement of a trial system. If she obtains substantial relief, a permanent sys tem is implanted. The permanent system often has 16 contacts, multiple programs, and the c apability of recharging. Recommendations: 1. Diagnostic evaluation: Records from CRPS program at [facility]. 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 2. Consult: 2.1 Pain psychology evaluation. The goal of this would be to explore ways of helping cope with pain and reduce the distress associated with her pain while focusing on active steps t o improve function. Psychological techniques including relaxation, guided imagery, biofeedba ck, and developing coping skills are often employed by the psychologists here at the [facility]. 2.2 Physical therapy can reduce pain and improve functional status. Suggest Guillermo Sanon . 3. Medication suggestions: 3.1 Continue titrating up duloxetine. 3.2 As for any patient being managed with chronic opioids, we do recommend that the patien t have a signed [facility] Material Risk Notice, agree to whatever refill and behaviora l rules the prescriber has (we use a behavioral agreement separate from the Material Risk No [place]), establish specific goals for therapy, and be willing to be screened by random urinar y toxicology samples. If there is no improvement in function and/or goals of opioid therap y are not being achieved, the opioid therapy should be discontinued. 3.3 Future options as above 4. Looking at her prior lumbar sympathetic block procedure notes, no documented temperatur e rise. Would suggest a diagnostic, possibly therapeutic lumbar sympathetic block. This b lock selectively blocks the sympathetic input to the lower extremity. In some circumstances with CRPS, sympathetic drive appears to be a significant factor in ongoing pain, temperatur e changes, edema, and other changes. We discussed the block in detail today. The block is performed in the midlumbar region under fluoroscopic control. Temperature monitoring and po stprocedure physical examination determines if there is a successful sympathetic block. The pain response determines if the sympathetic system is involved in pain. We typically ask p atients to keep a pain diary after the procedure to assess the effects in detail. [facility] Pre-Procedure Instructions: The procedure you discussed with your doctor is called: LUMBAR SYMPATHETIC BLOCK. Please m sintia sure this is scheduled with the Platemaker. Please bring a power truck driver with you. We may give you medications that make you drowsy or otherw ise unsafe to drive. If you do not have a power truck driver, we will not be able to do your procedure. DO NOT EAT ANYTHING AFTER MIDNIGHT If your appointment is after 1 PM , you may have a very light, low fat breakfast, such as h reid a piece of dry toast or a small bowl of plain oatmeal. Keep liquids to a minimum for 6 hours before the procedure. Clear liquids are allowed: 1 o f the selections below only * Water (1/4 cup) OR * Clear juices ( apple, cranberry, no pulp orange juice) 1/4 cup only OR * 2 oz ( 1/4 cup) coffee with sugar (NO CREAM) OR * Jello ( 1/4 cup) Take ALL regularly scheduled medications with small sips of water. If you are currently taking any anti-coagulant medications (blood thinners), such as Aspiri n, Coumadin, Plavix, Heparin, Low Molecular Heparin (Lovenox), PLEASE inform the Procedure P teresa TODAY. PLEASE CONTACT THE [facility]IVE PA[facility] CENTER AT [phone]) FOR QUESTIONS OR IF YOU NEED TO CANCEL YOUR APPOINTMENT. [facility] documented in this encounter Progress Notes Star Vega MA - 02/14/2012 9:11 AM PDT Review of Systems Constitutional: Positive for malaise/fatigue and diaphoresis. HENT: Positive for headaches. Gastrointestinal: Positive for nausea and vomiting. Musculoskeletal: Positive for joint pain. Skin: Nail changes Neurological: Positive for tingling, sensory change and weakness. Psychiatric/Behavioral: Positive for depression and memory loss. The patient is nervous/anx ious. All other systems reviewed and are negative. Physical Exam Ortho Exam Neurologic Exam Dale Abraham MD - 0 02/13/2012 10:54 PM PDT [facility] Office Visit . 02/13/2012 Tracie Farah; ; : 1990 Ms. Farah was referred for pain management consultation by [facility] [place] [facility] [address] [place] [address] Reason for visit Chief Complaint Patient presents with Pain in left leg Ankle pain left History of Present Illness: Tracie Farah is a 21 year old female with pain locate d in left lower extremity. She has been diagnosed with CRPS. She is referred to [facility] for consultation regarding this ongoing pain problem with the following spec [facility] issues to be addressed: Other options for Ms. Farah's pain began with a trampoline injury 04/12/2002 with distal fibula fracture in volving growth plate. Subsequent compartment syndrome with fasciotomy early on, peroneal ne rve injury, neuroma, neurectomy. She has been persistent left lower extremity pain with dy sfunction, temperature changes, swelling, sensitivity. Ms. Farah describes her current pain as swollen, stabbing, drilling, extreme pressure, s harp, burning. The leg gets cold, purple, blue, mottled. Swelling. Nail growth erratic (s low, two toe nails removed, they grew back), no difference in sweating, not sure about hair growth. Her pain is made worse by climbing stairs, cold, exercise, heat, lifting, light touch, josie ding, stressful situations, walking, work and anything touching the extremity. Her pain is improved by medications. Other pain complaints include bilateral axillary pain associated with lymph nodes. Also, she has diffuse aching and pain, but more minor than her leg pain. Present at all ti mes. Assessment of her pain complaints have included evaluations by several orthopedic surgeons, Dr. Charles in [place], physical therapy, Occupational Therapy. Diagnostic and radiologic tests/results have included Diagnostic imaging of the foot/ankle . No evidence of unhealed fracture. No bone scan. Does not recall if she had EMG/NCV. Nonmedication treatments for pain have included surgery including fixation, neuroma resecti on, steroid injections (peroneal nerve, ankle, tendon sheath, scar), massage therapy, physic al therapy, acupuncture, orthotics, Yoga, biofeedback, TENS, mirror therapy, desensitization . Uses crutches. Two sympathetic blocks from Dr. Charles = no pain relief. Admitted to the inpatient [facility] program for 1 month in the summer of 2010. Helped mental aspect and function, not pain. After discharge, she felt she didn't have a good home plan, was not able to maintain the functional gains. Her opioid use also decreased during this hospital stay and has not gone back up. Ms. Farah feels the most effective of these have been: Not jimmie e. Medication management related to the pain complaint has included Celexa, duloxetine, gabap entin, pregabalin, topiramate, tramadol, multiple opioids. Current [place] about 6-8/day. St arting duloxetine, at 30 mg/day. She feels that the most effective medication treatments ar e or have been opioids. As a result of her pain, Ms. Farah notes multiple changes in her life, including: "I don 't have a life, can't work, can't go to school." Poor mood, sleep, activity. Using crutche s recently because of pain flare. 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 Pain Inventory: (ten= worst possible pain or complete interference) Right Now: 8 (02/14/12905) Least in 24 hours: 8 (02/14/12905) Worst in 24 hours: 9 (02/14/12905) Average: 8 (02/14/12905) % Relief (med/treat): 0 (02/14/12905) General Activity: 8 (02/14/12905) Mood: 10 (02/14/12905) Walking Ability: 10 (02/14/12905) Normal Work: 10 (02/14/12905) Relations with Others: 8 (02/14/12905) Enjoyment of Life: 7 (02/14/12905) Sexual Activity: 0 (02/14/12905) Sleep: 8 (02/14/12905) Past Medical History Diagnosis Date Other chronic [...] Mother Hypertension Father Stroke Maternal Grandfather History Alcohol Use No History Drug Use Not on file History Social History Narrative Single. Goes to [employer] with a light load. Has been working at [employer], can' t work on [employer]. Has roommates. Current Medication List 02/14/12 9:50 AM Name Sig DULOXETINE 30 MG CAP, DELAYED RELEASE Take 30 mg by mouth once daily. HYDROCODONE-ACETAMINOPHEN 10 MG-325 MG TAB Take 2 Tabs by mouth every four hours as needed. Not to exceed 10 tablets per any 24 hour period. (Not to exceed 3250 mg of acetaminophen fr om all products per 24 hour period.) LEVONORGESTREL 20 MCG/24 HR INTRAUTERINE DEVICE 1 Each by Intrauterine route once. May be r emoved and replaced with a new unit at anytime during menstrual cycle; do not leave any one system in place for > 5 years. LORAZEPAM 1 MG TAB Take 1 mg by mouth every four hours as needed. PROMETHAZINE 25 MG TAB Take 25 mg by mouth four times daily as needed. Allergies Allergen Reactions Morphine Anaphylaxis As part of today's visit the [facility] new patient questionnaire was review ed. Please refer to this document for additional details of her current pain problem, PMH, PSH, FH, SH, and ROS. In the questionnaire, Ms. Farah indicated that her goals and expectations from today's v isit included the followin. What do you expect from our pain program? Do not know what to expect 47. What types of treatment do you expect from your visits to the [facility] ? Other (describe): ketamine, any kind of help. BP 144/67 | Pulse 100 | Temp (Src) 36.1 C (97 F) (Oral) | RR 16 | Ht 165.1 cm (5' 5") | Wt 74.844 kg (165 lb) | SpO2 97% | BMI 27.46 kg/(m^2) Review of Systems Constitutional: Positive for malaise/fatigue and diaphoresis. HENT: Positive for headaches. Eyes: Negative. Respiratory: Negative. Negative for cough and shortness of breath. Cardiovascular: Negative. Negative for chest pain. Gastrointestinal: Positive for nausea and vomiting. Genitourinary: Negative. Musculoskeletal: Positive for joint pain. Skin: Negative. Nail changes Neurological: Positive for tingling and sensory change. Endo/Heme/Allergies: Negative. Psychiatric/Behavioral: Positive for depression and memory loss. The patient is nervous/anx ious. Depression: 03/23 Anxiety: -05/23 Sleep: poor Physical Exam Vitals reviewed. Constitutional: She is oriented to person, place, and time and well-developed, well-nourish ed, and in no distress. HENT: Head: Normocephalic and atraumatic. Eyes: Conjunctivae are normal. Neck: Normal range of motion. Neck supple. No tracheal deviation present. No thyromegaly pr esent. Cardiovascular: Normal rate and normal heart sounds. Pulmonary/Chest: Effort normal and breath sounds normal. Abdominal: Soft. Bowel sounds are normal. Musculoskeletal: GAIT & STATION: left antalgic and crutches. ANKLE: Scars at anterior left ankle and laterally. Decreased flexion and extension at ankl e. Guards the entire left lower extremity SPINE: physiologic curvature Cervical spine: Curvature: physiologic Cervical active range of motion full, unrestricted. Right rotation + extension: not painful Left rotation + extension: not painful Spurling's: Left: Negative Right: Negative Thoracic Spine Curvature: physiologic kyphosis Lumbar curvature: physiologic Lumbar active range of motion -- sitting full and not painful. Shoulders: full range of motion Straight Leg Raise: sitting normal. Manual tender point survey: manual tender points positive Lumbopelvic examination: Pawan's: Negative Neurological: She is alert and oriented to person, place, and time. She has normal strength , normal reflexes and intact cranial nerves. Sensory examination: intact light touch bilaterally in upper extremities, intact light touch bilaterally in right lower extremity, intact pin bilaterally in upper extremities, i ntact pin bilaterally in right lower extremity, vibration sense intact bilaterally upper ext remities, vibration sense intact right lower extremity. Guarding of left lower extremity, limited sensory exam secondary to pain. Allodynia: present to all modalities left lower extremity below the knee Hyperalgesia: present same areas Hyperpathia: present same areas Dysesthesia: present same areas Skin: Skin is warm and dry. left lower extremity: Swollen (nonpitting edema to mid joyner), bluish, slightly cooler 27 degrees vs 28 degrees on the right. Psychiatric: Memory, affect and judgment normal. Provides cogent, detailed medical history Ortho Exam Neurologic Exam Mental Status Oriented to person, place, and time. Motor Exam Strength Strength 5/5 throughout. Impressions/Discussion: Patient Active Problem List Diagnoses Date Noted CRPS (complex regional pain syndrome), lower limb 02/14/2012 Overview Note: Left, injury 2001, multiple surgical procedures Gait disturbance 02/14/2012 Muscle pain 02/14/2012 Overview Note: Diffuse with fibromyalgia points positive Adjustment reaction 02/14/2012 355.71B CRPS (complex regional pain syndrome), lower limb 781.2Q Gait disturbance 729.1C Muscle pain 309.9CV Adjustment reaction Ms. Farah has persistent left lower extremity Complex Regional Pain Syndrome. She may h ave peroneal nerve dysfunction as well, making it Type II CRPS. She has had extensive treatment including multiple medications, surgical treatment of the f ibula/ankle and compartment syndrome, physical therapy, mirror therapy, psychological uri ricks, the pediatric inpatient pain program at [facility], and two attempted lumbar sympathetic blocks. Last summer she was more functional, now using crutches, infrequently wears shoes /protective covering of the left foot. She is sensitive to even minor stimuli at the left l ower extremity-- wind, rain, brushing, any light touch. On evaluation today today she meets the diagnostic criteria for Complex Regional Pain Syndr ome. 1. Continuing (spontaneous and/or evoked) regional pain that is seemingly disproportionate in time or degree to the usual course of any known trauma or other lesion, inciting event. yes 2. At least one symptom in 3 or more of the following categories: - Sensory: [Allodynia, hyperalgesia, deep somatic allodynia] Yes- to all modalities - Vasomotor: [Skin color or temperature changes/asymmetry] Yes- color, temp changes report ed - Sudomotor/Edema: [edema and/or sweating changes/asymmetry] Yes- - Motor/Trophic: [? ROM, weakness/trmor/dystonia; skin/nail/hair changes] Yes- 3. At least one sign at time of evaluation in 2 or more of the following categories: - Sensory: [allodynia, hyperalgesia, deep somatic allodynia] Yes- all three - Vascular: [color or temperature changes/asymmetry] Yes- - Sudomotor/Edema: [edema and/or sweating changes/asymmetry] Yes- - Motor/Trophic: [? ROM, weakness/trmor/dystonia; skin/nail/hair changes] Yes- 4. Signs above are observed at the time of diagnosis: yes Additionally, she is diffusely painful, with more than 11/18 fibromyalgia tender points pos itive on examination. This diffuse muscle pain likely represents a form of mild fibromyalgi a. Meds not tried: *Memantine. Memantine is an NMDA antagonist and has recent evidence to support its use in neuropathic and other pain pain conditions. Starting dose is 5 mg at night, titrate to 5-1 0 mg twice a day, maximum dose of 30 mg/day. *Bisphosphonate trial. Typically, I order a bone density test or a bone scan. If abnormal , consider a trial of a drug in this class. There is some evidence to support their use in CRPS. *Ketamine --recent trials of outpatient IV ketamine in CRPS *IVIG: A recent placebo controlled, randomized clinical trial demonstrated benefit of intr avenous immunoglobulin infusion in CRPS patients (Loretta A, et al. [employer] Med. 2010;152: 152-158). Other treatment options for the future: Spinal cord stimulation (SCS) has good evidence f or providing ad terminal makeup operator relief in CRPS (Complex Regional Pain Syndrome) and specifically in p atients who have temporary response to sympathetic block (Belem REESE et al. NEJM 2000;343(9): 618-624; Belem REESE et al. J Neurosurg 2008;108(2):292-298; Danette H, et al. Eur J Pain: 200 5;9(4):363-373). In addition to pain relief, the study by Danette demonstrated improvement in function and reduction in medication use. The initial step is placement of a trial system. We discussed the goals of pain treatment: +Decrease pain +Decrease the suffering that accompanies the pain +Improve function +Help gain control over the pain as much as possible. Recommendations: 1. Diagnostic evaluation: Records from pain program at [facility]. Suggest three ph ase bone scan-- ordered. 2. Consult: 2.1 Pain psychology evaluation. The goal of this would be to explore ways of helping cope with pain and reduce the distress associated with her pain while focusing on active steps t o improve function. Psychological techniques including relaxation, guided imagery, biofeedba ck, and developing coping skills are often employed by the psychologists here at the [facility]. ORDER PLACED 2.2 Physical therapy can reduce pain and improve functional status. Suggest Guillermo Sanon . ORDER PLACED 3. Medication suggestions: 3.1 Continue titrating up duloxetine. 3.2 As for any patient being managed with chronic opioids, we do recommend that the patien t have a signed [facility] Material Risk Notice, agree to whatever refill and behaviora l rules the prescriber has (we use a behavioral agreement separate from the Material Risk No [place]), establish specific goals for therapy, and be willing to be screened by random urinar y toxicology samples. If there is no improvement in function and/or goals of opioid therap y are not being achieved, the opioid therapy should be discontinued. 3.3 Future options as above 4. Looking at her prior lumbar sympathetic block procedure notes, no documented temperatur e rise. Would suggest a diagnostic, possibly therapeutic lumbar sympathetic block. This b lock selectively blocks the sympathetic input to the lower extremity. In some circumstances with CRPS, sympathetic drive appears to be a significant factor in ongoing pain, temperatur e changes, edema, and other changes. We discussed the block in detail today. The block is performed in the midlumbar region under fluoroscopic control. Temperature monitoring and po stprocedure physical examination determines if there is a successful sympathetic block. The pain response determines if the sympathetic system is involved in pain. We typically ask p atients to keep a pain diary after the procedure to assess the effects in detail. I discussed all of the above in detail with Ms. Farah and her mother. I personally spen t more than 75 minutes with Ms. Farah with more than 50% of that time spent in counseling and coordination of care, including reviewing her condition and treatment options. We have not implemented these medication recommendations and suggested that she discuss our consultation findings with her PCP, BJORN Villanueva. DALE CANTU MD Transcript Clerk, [facility] Drug Enforcement Agent, Pain Medicine Professor, Anesthesiology & Perioperative Medicine documented in this en counter Plan of Treatment Not on filedocumented as of this encounter Results NM BONE &/OR JOINT IMAGING 3 PHASE (02/14/2012 5:13 PM PDT) + + + + + + | Component | Value | Ref Range | Performed | Pathologist | | | | | At | Signature | + + + + + + | NM BONE IMG | PARTIAL BODY 3-PHASE | | | | | 3 PHASE | BONE SCAN 02/14/12 | | | | | | 17:13:00 COMPARISON: | | | | | | None HISTORY: Left | | | | | | lower leg pain | | | | | | PROCEDURE: Following | | | | | | intravenous | | | | | | administration 24.7 mCi | | | | | | [id number], angiographic | | | | | | images of the feet were | | | | | | obtained at 3 | | | | | | secondintervals for the | | | | | | first minute. At five | | | | | | minutes blood pool | | | | | | imageswere obtained. | | | | | | At 2 1/2 hours | | | | | | following injection, | | | | | | delayed images ofthe | | | | | | feet were imaged. | | | | | | FINDINGS: The | | | | | | angiographic phase was | | | | | | normal. The tissue | | | | | | phase wasalso normal. | | | | | | On the delayed phase | | | | | | there is increased | | | | | | uptake at theleft | | | | | | lateral malleolus | | | | | | extending 4 cm | | | | | | superiorly. There is | | | | | | alsoevidence of | | | | | | decreased biomechanical | | | | | | stress on the left leg | | | | | | secondaryto the | | | | | | patient's crutch use. | | | | | | IMPRESSION:Normal | | | | | | angiographic and tissue | | | | | | phases bilaterally. | | | | | | Increased uptakeon the | | | | | | delayed phase in the | | | | | | left lateral malleolus | | | | | | extending 4 | | | | | | cmsuperiorly. Evidence | | | | | | of decreased mechanical | | | | | | stress in the left lower | | | | | | extremitysecondary to | | | | | | the patient's crutch | | | | | | use. Of note the distal | | | | | | fibula isabnormal | | | | | | despite this. Attending | | | | | | Radiologists: Homer | | | | | | Alfonso McdowellAuthor: | | | | | | Gerry Liu M.D. I | | | | | | have personally viewed | | | | | | this procedure/exam, | | | | | | reviewed this report,and | | | | | | made changes to it | | | | | | where appropriate. | | | | | | Final/Electronically | | | | | | signed / Homer | | | | | | Jeremias 02/15/2012 9:11 | | | | | | AM Pending final | | | | | | approval / Gerry | | | | | | Noe 02/15/2012 8:36 | | | | | | AM Preliminary / | | | | | | Gerry Liu 02/15/2012 | | | | | | 8:22 AM | | | | + + + + + + + + | Specimen | + + | | + + + +---------+ + + | Performing | Address | City/State/Zipcode | Phone Number | | Organization | | | | + +---------+ + + | [facility] | | | | | RADIOLOGY | | | | + +---------+ + + documented in this encounter Visit Diagnoses + + | Diagnosis | + + | CRPS (complex regional pain syndrome), lower limb Causalgia of lower limb | + + | Gait disturbance Abnormality of gait | + + | Muscle pain Mylagia and myositis, unspecified | + + | Adjustment reaction Unspecified adjustment reaction | + + documented in this encounter
--- OUTSIDE RECORDS SUMMARY | ~2020-03-23 | XMS | Encounter Summary ---
Demographics + + + | Address | [address] | | | [place] [address] | + + + | Home Phone [...] Team Providers + +------+ + | Care Veterinary Medicine Scientist Name | Role | Phone | + +------+ + | Justo Vazquez MD | PCP | | + +------+ + Encounter Details +--------+ + + + + | Date | Type | Department | Care Team | Description | +--------+ + + + + | 03/18/ | Telephone | [facility] | Kenny Gaspar MD | | | 2017 | | Thermal at [facility] [address] | | | | | | [address] | | | | | | Mailcode: Thermal | | | | | | for Health and | | | | | | Healing, [address] | | | | | | [place], [place] | | | | | | [address] | | | | | | [phone] | | | +--------+ + + + [...]
--- OUTSIDE RECORDS SUMMARY | ~2020-03-23 | XMS | Encounter Summary ---
Demographics + + + | Address | [address] | | | [place] [address] | + + + | Home Phone | | + + + | Preferred Language | Unknown | + + + | Marital Status | Single | + + + | Adventist Affiliation | FMD | + + + [...] Team Providers + +------+ + | Care Envelope Sealer Operator Name | Role | Phone | [...] | Diagnoses | Beulah | Edu Pt Agency Operator | | | | Therapy | CRPS | Janak Martinez MD | [facility] [address] | | | | | (complex | [address] | | | | | regional | [address] | Mailcode: | | | | | pain | Mailstop | [facility] | | | | | syndrome), | [id number] | for Health | | | | | lower limb | [place], [place] | and Healing, | | | | | Gait | [address] | [address] | | | | | disturbance | Phone: | [place], [place] | | | | | Muscle pain | [phone] | [address] | | | | | Procedures | Fax: | Phone: | | | | | PHYSICAL | [phone] | [phone] | | | | | THERAPY | | | | | | | REFERRAL | | | +--------+--------+ + + + + Encounter Details +--------+---------+ + + + | Date | Type | Department | Care Team | Description | +--------+---------+ + + + | 02/13/ | Office | [facility] | Guillermo Sanon I, | CRPS (complex | | 2011 | Visit | Therapy Services at | PT [address] | regional pain | | | | [facility] | [place] [address] | syndrome), lower | | | | [address] | [phone] | limb (Primary Dx) | | | | Mailcode: [facility] | | | | | | [facility] | | | | | | and Healing, | | | | | | [address] | | | | | | Floor [place], [place] | | | | | | [address] | | | | | | [phone] | | | +--------+---------+ + + + [...] Progress Notes Guillermo Sanon I, PT - 02/14/2012 1:52 PM PDTFormatting of this note might be different f rom the original. [id number] BRODY FARAH Date of : 1990 Start of care: 02/14/2012 Date of onset: 02/14/2012 Referring/Attending Practitioner: Janak Riojas MD . Primary/Referral Diagnosis/ICD-9: 355.71B CRPS (complex regional pain syndrome), lower limb Insurance: Payor: [employer] Plan: BCBS OUT OF STATE Product Type: PP O Service period from: 02/14/2012 to: 08/12/2012 Number visits used/authorized: 11/25 [facility] PHYSICAL THERAPY INITIAL EVALUATION SUBJECTIVE: Age: 21 y.o. Sex: female Chief complaint: No chief complaint on file. History of Presenting Problems: Brody Farah is [...] Riojas today already. Pain rating at present: 7/10 worst: 10, best: 6/10 with lots of [...] Pain is relieved by: sometimes pain meds. Previous treatment for this condition includes: Nonmedication treatments for pain have incl uded surgery including fixation, neuroma resection, steroid injections (peroneal nerve, ankl e, tendon sheath, scar), massage therapy, physical therapy, acupuncture, orthotics, Yoga, bi ofeedback, TENS, mirror therapy, desensitization. Uses crutches. Two sympathetic blocks from Dr. Charles = no pain relief. Admitted to the inpatient [facility] program for 1 month in the summer of 2010. Helped mental aspect and function, not pain. After discharge, she felt s he didn't have a good home plan, was not able to maintain the functional gains. Her opioid u se also decreased during this hospital stay and has not gone back u Condition is worsening over the last two years. Concurrent medical treatment: Dr Riojas's recommendations: Recommendations: 1. Diagnostic evaluation: Records from CRPS program at [facility]. Suggest three phase bone sca n. 2. Consult: 2.1 Pain psychology evaluation. The goal of this would be to explore ways of helping cope w ith pain and reduce the distress associated with her pain while focusing on active steps to improve function. Psychological techniques including relaxation, guided imagery, biofeedback , and developing coping skills are often employed by the psychologists here at the [facility]. 2.2 Physical therapy can reduce pain and improve functional status. Suggest Guillermo Sanon. 3. Medication suggestions: 3.1 Continue titrating up duloxetine. 3.2 As for any patient being managed with chronic opioids, we do recommend that the patient have a signed [facility] Material Risk Notice, agree to whatever refill and behavioral rules the prescriber has (we use a behavioral agreement separate from the Material Risk Not ice), establish specific goals for therapy, and be willing to be screened by random urinary toxicology samples. If there is no improvement in function and/or goals of opioid therapy ar e not being achieved, the opioid therapy should be discontinued. 3.3 Future options as above 4. Looking at her prior lumbar sympathetic block procedure notes, no documented temperature rise. Would suggest a diagnostic, possibly therapeutic lumbar sympathetic block. This block selectively blocks the sympathetic input to the lower extremity. In some circumstances with CRPS, sympathetic drive appears to be a significant factor in ongoing pain, temperature luke nges, edema, and other changes. We discussed the block in detail today. The block is perform ed in the midlumbar region under fluoroscopic control. Temperature monitoring and postproced ure physical examination determines if there is a successful sympathetic block. The pain res ponse determines if the sympathetic system is involved in pain. We typically ask patients to keep a pain diary after the procedure to assess the effects in detail. Past Medical History: has a past medical history of Other chronic pain; Reflex sympathetic dystrophy of the lower limb; Depression; Anxiety; Compartment syndrome; Peroneal nerve inju ry; Neuroma of lower extremity; and Ankle fracture, left. Past Surgical History: has past surgical history that includes tonsillectomy and adenoidec evelia; ankle surgery; fasciotomy; neurectomy foot; nerve block (03/18/11 & 03/25/11); and hemr oidectomy. Social History: lives in [place] [facility] [facility], 22 years old, not working currently, in school taking p rerecs Hobbies/Recreation: nothing for exercise. Stress level: high Ability to sleep: sleep is interrupted by symptoms Bold indicates problem area. General health: good, but strep four times this last year; HTN: no;; DM: no; Cardiac: no; C A: no; fever/infection: no; anticoagulants/steroid: no; weight change: none; pacemaker: no; : no; imaging: NM BONE IMG 3 PHASE: PARTIAL [...] the distal fibula is abnormal despite this. Cord symptoms: ; Cord signs: none She has the following anxieties or concerns about therapy: she lives in [place] [facility] [place] [facility]. She is r equesting family members or friends involved with rehabilitation therapy: Her mother. She i s requesting that another person be present during her initial evaluation: her mother. She h as no preference as to having her physical therapy session in a private room or in the gym. Patient Specific Functional Scale: (0=unable to perform; 10= no difficulty): deferred Objective Observation/posture:pt is accompanied by her mother. She ambulates with bilateral axillary crutches and is accompanied by her mother. In the table that follow an empty cell indicates the test was not performed on the indicate d date. LE ROM: Ankle AROM grossly WNL DF, PF, INV, EV with knees straight Neuro Screen LQ Sensory Light Touch 0= Absent 1= decreased 2= normal 3=painful Location L R L2 (Med. Thigh) NA NA L3 (Med. Knee) NA NA L4 (Med. Mall.) 3 2 L5 (Mid. Toe) 3 2 S1 (Lat. Heel) 3 2 Laterality: 87% bilaterally vanilla feet Risks and Benefits of treatment, as well as risks of not receiving recommended treatment, explained/discussed with patient. Patient agrees to proceed with Rx plan as outlined. Treatment provided: Initial evaluation Discussed prior courses of treatment and future treatment options Laterality training Home exercises: Laterality training 10 min x 3 per day (feet)- pt provided with a token and bocanegra for [facility] site. Treatment began: 1345hrs Treatment ended: 1430hrs Manual therapy: 0min Therapeutic exercise: 15 min ASSESSMENT: pt presents with 10-year history of ankle pain post trauma and multiple surgeri es. She thinks she developed CRPS in 2004. She was diagnosed with CRPS and spent a month in the program at [facility] working through aggressive desensitization and activation which prov ided no lasting benefit. She lives in [place] [facility], is going to school, and ambulates with bila teral axillary crutches. After a long discussion with her and her mother about different PT treatment alternatives, I think it makes sense for her to start with laterality training an d graded motor imagery, which are not very painful, since she has already tried a variation of the pain exposure approach. She can wait to see if Dr Riojas has any medical suggestions to get her pain a little more under control before beginning a more active functional restor ation program. If she comes in again beofre Dr Riojas is able to see her she should started with two point descrimination training and/or desensitization in the mirror. She lives far a way so I don't expect to see her here very often. She can work with her PT in [employer]. CLINICAL PRIORITIES: 1-follow up with Dr Riojas 2- laterality > imagined movements 3- two point discrimination, desensitization Goals further goals to be determined post follow up with Dr Riojas. Date Goals Time Frame Status 02/14/2012 Independent with home exercise program 4 weeks 02/14/2012 Independent in pain management strategies 4 weeks Rehab Potential: Fair Goals discussed and agreed upon with Brody and family. Individual cultural and social needs addressed. PLAN: manual therapy, postural education, cervical stabilisation training , neurodynamic mo bilisation, functional activity training, general strength and conditioning. Frequency/Duration: Frequency per month: 2 Duration in months: 3 Total visits: 6 Discharge needs: none TREATMENT TODAY: No orders of the defined types were placed in this encounter. This note is to serve as the discharge summary if Brody fails to attend further Physical Th erapy appointments or contact the therapist regarding any change in their status. Guillermo Sanon MSPT [facility] Outpatient Rehabilitation Services Mailcode: [facility] [address] [facility], [address] [place] [phone] documented in this encounter Plan of Treatment Not on filedocumented as of this encounter Procedures + +--------+ + + + | Procedure Name | Priori | Date/Time | Associated Diagnosis | Comments | | | ty | | | | + +--------+ + + + | TN THERAPEUTIC | Routin | 02/16/2012 | CRPS (complex | | | EXERCISES | e | 3:34 PM | regional pain | | | | | PDT | syndrome), lower | | | | | | limb | | + +--------+ + + + | TN PHYS THERAPY | Routin | 02/16/2012 | CRPS (complex | | | EVALUATION | e | 3:34 PM | regional pain | | | [...]
--- OUTSIDE RECORDS SUMMARY | ~2020-03-23 | XMS | Encounter Summary ---
Demographics + + + | Address | [address] | | | [place] [address] | + + + | Home Phone [...] Author + + + | Author | [facility] | + + + | Organization | [facility] | + + + | Address | Unknown | + + + | Phone | Unavailable | + + + Support + + +---------+ + | Name | Relationship | Address | Phone | + + +---------+ + | Patricia Colin | ECON | Unknown | | + + +---------+ + Care Team Providers + +------+ + | Care Photograph Enlarger Name | Role | Phone | + +------+ + | Justo Vazquez MD | PCP | | + +------+ + Reason for Visit + + + | Reason | Comments | + + + | Post-discharge | | | follow-up | | + + + Encounter Details +--------+ + + + + | Date | Type | Department | Care Team | Description | +--------+ + + + + | 12/28/ | Telephone | [facility] | Alex Sanchez, | Post-discharge | | 2018 | | Pain Center at | ,PhD [address] [facility] | follow-up | | | | [facility] | [address] | | | | | [address] | [place], [place] | | | | | Mailcode: [facility] | [address] | | | | | [facility] | [phone] | | | | | and [address], | | | | | | Building | | | | | | Floor [place], [place] | | | | | | [address] | | | | | | [phone] | | | +--------+ + + + [...]
--- OUTSIDE RECORDS SUMMARY | ~2020-03-23 | XMS | Encounter Summary ---
Demographics + + + | Address | [address] | | | [place] [address] | + + + | Home Phone | | + + + | Preferred Language | Unknown | + + + | Marital Status | Single | + + + | Roman Catholic Affiliation | FMD | + + [...] Team Providers + +------+ + | Care Production Planning Supervisor Name | Role | Phone | [...] | Pain | | 2016 | | Force at [facility] [address] | | | | | | [address] | | | | | | Mailcode: Center | | | | | | for Health and | | | | | | Healing, [address] | | | | | | [place], [place] | | | | | | [address] | | | | | | [phone] | | | +--------+ + + + [...]
--- OUTSIDE RECORDS SUMMARY | ~2020-03-23 | XMS | Encounter Summary ---
Demographics + + + | Address | [address] | | | [place] [address] | + + + | Home Phone [...] Team Providers + +------+ + | Care Stocking And Box Shop Supervisor Name | Role | Phone | [...] | | unspecified | [address] | [facility] | | | | | constipation | [place], [place] | for Health | | | | | type | [phone] | and Healing, | | | | | Abdominal | | [address] | | | | | pain, | | [place], [place] | | | | | unspecified | | [address] | | | | | location | | Phone: | | | | | Procedures | | [phone] | | | | | CONSULT TO | | Fax: | | | | | GI PROCEDURE | | [phone] | | | | | UNIT: | | | | | | | COLONOSCOPY | | | | | | | [place] | | | | | | | [...] | | 2015 | | Center at [facility] [address] | MD Melissa | Vomiting (Bile) | | | | [address] | | | | | | Mailcode: Center | | | | | | for Health and | | | | | | Healing, [address] | | | | | | [place], [place] | | | | | | [address] | | | | | | [phone] | | | +--------+ + + + [...]
--- OUTSIDE RECORDS SUMMARY | ~2020-03-23 | XMS | Encounter Summary ---
Demographics + + + | Address | [address] | | | [place] [address] | + + + | Home Phone [...] Team Providers + +------+ + | Care Straw Baler Name | Role | Phone | + +------+ + | Allegra Gandhi | PCP | | + +------+ + Reason for Visit + + + | Reason | Comments | + + + | Return Patient | | + + + | Buttock pain | | + + + | Hip pain | | + + + | Leg Pain | | + + + | Knee [...] | | | sympathetic | [place] | [address]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 | FAMILY | [facility] | | | | | of lower | MEDICINE P | [id number] | | | | | limb | [address] | [place], [place] | | | | | | [place], | [address] | | | | | | [place] [address] | Phone: | | | | | | Phone: | [phone] | | | | | | [phone] | Fax: | | | | | | Fax: | [phone] | | | | | | [phone] | | +--------+--------+ + + + + Encounter Details +--------+---------+ + + + | Date | Type | Department | Care Team | Description | +--------+---------+ + + + | 09/04/ | Office | [facility] Comprehensive | Dale Cantu, | CRPS (complex | | 2011 | Visit | Pain Center at | [address] [facility] | regional pain | | | | [facility] | [facility] [id number] | syndrome), lower | | | | [address] | [place], [place] | limb; Gait | | | | Mailcode: CH15P | [address] | disturbance; Sleep | | | | [facility] | [phone] | disturbance, | | | | and Healing, | | unspecified; | | | | | | Adjustment reaction | | | | Floor [place], [place] | | | | | | [address] | | | | | | [phone] | | | +--------+---------+ + + + [...] + + + | Blood Pressure | 136/67 | 09/04/2012 9:01 AM | | | | | PDT | | + + + + + | Pulse | 105 | 09/04/2012 9:01 AM | | | | | PDT | | + + + + + | Temperature | - | - | | + + + + + | Respiratory Rate | 16 | 09/04/2012 9:01 AM | | | | | PDT | | + + + + + | Oxygen Saturation | 98% | 09/04/2012 9:01 AM | | | | | PDT | | + + + + + | Inhaled Oxygen | - | - | | | Concentration | | | | + + + + + | Weight | 81.6 kg (180 lb) | 09/04/2012 9:01 AM | | | | | PDT | | + + + + + | Height | 165.1 cm (5' 5") | 09/04/2012 9:01 AM | | | | | PDT | | + + + + + | Body Mass Index | 29.95 | 09/04/2012 9:01 AM | | | | | PDT | | + + + + + documented in this encounter Patient Instructions Patient Instructions Dale Cantu MD - 09/04/2012 9:24 AM PDTThis is a copy of the ft of my suggestions to your doctors. 3. Medication options: 3.1 We discussed memantine, as there have been recent reports of a potential benefit in CRP S patients (Frantz N; Ari N; Anahy S; Wes A; Sriram S; Juvenal S; Nato K; Ryan jones H; Lydia M. Adapted from Clin J Pain. 2007 Jan-Feb;23(3):237-43.). This drug is an NMD A antagonist and has recent evidence to support its use in neuropathic and other pain pain c onditions. Starting dose is 5 mg at night, titrate to 5-10 mg twice a day, though higher dos es may be of benefit. 3.2 NORTRIPTYLINE. Start 25 mg at night, after 3-7 days increase to 50 mg at night. After a nother 3-7 days increase to 75 mg each night. The target dose is 50 - 150 mg nightly. Analge mandeep onset can take weeks. It is prudent to obtain an EKG before starting this medication to rule out any conduction delay or rhythm disturbances. We discussed possible benefits and adv erse effects of this and provided her with written information about the medication. 4. Many other treatment options: Intrathecal medications (opioids, clonidine, ziconotide) = many downsides in a young person . Ketamine: Reports of IV ketamine resulting in weeks to months of pain relief. A recent placebo controlled, randomized clinical trial demonstrated benefit of intravenous immunoglobulin infusion in CRPS patients (Loretta Rousseau, et al. Katrina Sand C[employer] Apprentice Med. 2010;152:152-158) . Bisphosphonate trial. Typically, I order a bone density test or a bone scan. If abnormal, consider a trial of a drug in this class. There is some evidence to support their use in C RPS. Other meds. clinicaltrials.gov documented in this encounter Progress Notes Charline Salinas MA - 09/04/2012 8:58 AM PDTCMA History: 1. Has your pain [...] GENITOURINARY SYSTEM negative 4. NERVOUS SYSTEM numbness 5. PSYCHIATRIC HISTORY depressed mood, sleep disturbance, decreased interest in previousl y enjoyable activities, guilt, decreased energy, concentration , decreased or increased appe tite, anxiety, fear of physical activity and social withdrawal ale Cantu MD - 09/04/2012 7:45 AM PDT [facility] Center Return Visit with Dr. Dale Cantu 09/04/2012 Tracie Farah; ; : 1990 Chief Complaint Patient presents with Return Patient Buttock pain Hip pain Leg Pain Knee pain Foot pain History of Present Illness: Ms. Farah was last seen by me on 08/04/2012 in follow up of her spinal cord stimulator zenia mota. She is here today for a follow up visit. She [facility] for CRPS pain with the following problem list: Patient [...] pain or complete interference) Right Now: 8 (09/04/12957) Least in 24 hours: 9 (09/04/12957) Worst in 24 hours: 9 (09/04/12957) Average: 8 (09/04/12957) % Relief (med/treat): 20 (09/04/12957) General Activity: 9 (09/04/12957) Mood: 10 (09/04/12957) Walking Ability: 7 (09/04/12957) Normal Work: 7 (09/04/12957) Relations with Others: 6 (09/04/12957) Enjoyment of Life: 8 (09/04/12957) Sexual Activity: 0 (09/04/12957) Sleep: 8 (09/04/12957) Ms. Farah underwent a spinal cord stimulator trial last month with [facility] [employer] equipment wit h no benefit to her pain. She had good coverage of her painful area, but no pain relief. She had previously made extensive rehabilitation efforts, tried lumbar sympathetic blocks, and pain psychology techniques. The pain is located left leg, knees, bilateral low back. Majority in the left lower extrem ity. She describes her pain as burning, stabbing, needles, feels cold or hot. She feels the hudson n is staying the same. The pain is made better by meds, using it less. The pain is made worse by overdoing it. No new treatments except trying trazodone for sleep, helping a little. She reports no other change in past [...] Hemroidectomy Trial spinal cord stimulator leads 08/02/2012 [facility], Surgeon: Dale Cantu MD Family History Problem Relation Alcohol/Drug Maternal [...] tobacco: Not on file Alcohol Use: No Current Medication List Name Sig HYDROCODONE-ACETAMINOPHEN 10 MG-325 MG TABLET Take 2 Tabs by mouth every four hours as need ed. Not to exceed 10 tablets per any 24 hour period. (Not to exceed 3250 mg of acetaminophen from all products per 24 hour period.) TORADOL IM Inject 2 mg into the muscle (IM). LEVONORGESTREL 20 MCG/24 HR INTRAUTERINE DEVICE 1 Each by Intrauterine route once. May be r emoved and replaced with a new unit at anytime during menstrual cycle; do not leave any one system in place for > 5 years. LORAZEPAM 1 MG TABLET Take 2 mg by mouth every four hours as needed. ONDANSETRON HCL 8 MG TABLET Take 8 mg by mouth once daily as needed. OXYCODONE 5 MG TABLET Take 5 mg by mouth every six hours as needed. PROMETHAZINE 25 MG TABLET Take 25 mg by mouth four times daily as needed. TRAZODONE 100 MG TABLET Take 100 mg by mouth once daily at bedtime. Allergies Allergen Reactions Morphine Anaphylaxis Ms. Farah reports no side effects. The Review of Systems obtained by the [facility] was reviewed. Additional Review of Systems commen ts: None additional. PE: BP 136/67 | Pulse 105 | RR 16 | Ht 1.651 m (5' 5") | Wt 81.647 kg (180 lb) | SpO2 98% | BMI 29.95 kg/(m^2) Appears healthy. Alert; in no acute distress. Pleasant. Oriented , interactive. Ambulates with restrictions. 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 We discussed other options in detail. Plan: 1. Follow-up 2 months. 2. Stay active. 3. Medication options: 3.1 We discussed memantine, as there have been recent reports of a potential benefit in CRP S patients (Frantz N; Ari N; Anahy S; Wes A; Sriram S; Juvenal S; Nato K; Ryan jones H; Lydia Torres. Adapted from Clin J Pain. 2007 Jan-Feb;23(3):237-43.). This drug is an NMD A antagonist and has recent evidence to support its use in neuropathic and other pain pain c onditions. Starting dose is 5 mg at night, titrate to 5-10 mg twice a day, though higher dos es may be of benefit. 3.2 NORTRIPTYLINE. Start 25 mg at night, after 3-7 days increase to 50 mg at night. After a nother 3-7 days increase to 75 mg each night. The target dose is 50 - 150 mg nightly. Analge mandeep onset can take weeks. It is prudent to obtain an EKG before starting this medication to rule out any conduction delay or rhythm disturbances. We discussed possible benefits and adv erse effects of this and provided her with written information about the medication. 4. Many other treatment options: Intrathecal medications (opioids, clonidine, ziconotide) = many downsides in a young person . Ketamine: Reports of IV ketamine resulting in weeks to months of pain relief. . Other meds: Bisphosphonates are potentially helpful in CRPS. We typically suggest assessin g bone density or a bone scan. If there are abnormalities in the extremity, consider a bisp hosphonate. There are several small studies that support the use of this class in CRPS (Maxine Kern, et al Journal of Pain: 13(1):17-21, 2008). DALE CANTU MD Athletic Gear Custodian, [facility] Associate Merchant, Pain Medicine Professor, Anesthesiology & Perioperative Medicine documented in this en counter Plan of Treatment Not on filedocumented as of this encounter Visit Diagnoses + + | Diagnosis | + + | CRPS (complex regional pain syndrome), lower limb Causalgia of lower limb | + + | Gait disturbance Abnormality of gait | + + | Sleep disturbance, unspecified | + + | Adjustment reaction Unspecified adjustment reaction | + + documented in this encounter
--- OUTSIDE RECORDS SUMMARY | ~2020-03-23 | XMS | Encounter Summary ---
Demographics + + + | Address | [address] | | | [place] [address] | + + + | Home Phone [...] Team Providers + +------+ + | Care Passenger Rate Clerk Name | Role | Phone | [...] | | syndrome | [place] | [facility] | | | | | type [address] of | [address] | Rd [place], | | | | | left lower | [place], [place] | [place] | | | | | extremity | [address] | [address] | | | | | Procedures | Phone: | Phone: | | | | | REQUEST TO | [phone] | [phone] | | | | | SURGERY | Fax: | Fax: | | | | | [facility] | [phone] | [phone] | +--------+---------+ + + + + Encounter Details +--------+---------+ + + + | Date | Type | Department | Care Team | Description | +--------+---------+ + + + | 09/28/ | Office | [facility] Comprehensive | Yun Frey, WOMEN'S SWIM COACH | Complex regional | | 2018 | Visit | Pain Center at | [address] | pain syndrome type 1 | | | | [facility] | [place], [place] | of left lower | | | | [address] | [address] | extremity (Primary | | | | Mailcode: CH15P | [phone] | Dx); Arthralgia of | | | | [place] [facility] | | left lower leg | | | | and Healing, | | | | | | | | | | | | Floor [place], [place] | | | | | | [address] | | | | | | [phone] | | | +--------+---------+ + + + [...] Instructions Dayana Ivan - 09/28/2018 12:05 PM PSTKelly, Thank you for taking the time to see us in the [facility]. It was great to s [...] physical act ivity and social withdrawal Yun Tim NP - 1 11/28/2017 12:05 PM PST September 28, 2018 Tracie Farah [id number] [facility] Comprehensive Pain Center Return Visit Chief Complaint: [...] a pain drawing which I reviewed. [facility] Questionnaire Follow-up Patient 10/10/2017 Please describe [...] DRG Spinal Cord Stimuation Trial with [facility] LEVEL/LATERALITY: left L4, L5. Till date, [...] turned up to 7%. After seeing th videotape sales representative today and killian ing adjustments, she [...] Hemroidectomy Trial spinal cord stimulator leads 08/02/2012 [facility], Surgeon: Janak Riojas MD Cholecystectomy Appendectomy [...] the vein (IV) every eight hour s. 5994-8318-11 COMPOUNDED MED RX CONTROLLED (SEE ADMIN INSTRUCT [...] by physician. Concentration is 150mg/mL. Compounded by [facility] ) KETOROLAC IM Inject into the [...] (IV) every twel ve hours as needed. 9525-1451-36 ONDANSETRON 4 MG DISINTEGRATING TABLET Dissolve 1 tablet in mouth every twelve hours as nee ded. PANTOPRAZOLE 40 MG TABLET,DELAYED RELEASE Take 40 mg by mouth once daily. PEG 3350-ELECTROLYTES 236 GRAM-22.74 GRAM-6.74 GRAM-5.86 GRAM SOLUTION Take as directed by [facility]- 2 gallon bowel prep POLYETHYLENE [...] been given programming opti ons by the [employer]'s device videotape sales representative, Michele. At this time, there is no complication from the DRG trial. Recommendations/Plan: 1. Recommend to keep her appointment with Dr. Sanchez on 10/02/2018. 2. To contact the [employer]'s rep if she has any further question on programming. 09/28/2018: I, Dayana Ivan, am functioning as a medical staff physician for Yun Frey NP. I have reviewed and verified the above scribed note of my visit with this patient as record ed by Ms. Dayana Ivan. Jeanine Frey (Mr.) MSN, ACNP- Nurse Practitioner [facility] [address] [place] [id number] documented in this enco unter Plan of [...]
--- OUTSIDE RECORDS SUMMARY | ~2020-03-23 | XMS | Encounter Summary ---
Demographics + + + | Address | [address] | | | [place] [address] | + + + | Home Phone [...] Providers + +------+ + | Care Senior Boiler Operator Name | Role | Phone | [...] | Diagnoses | Beulah | Edu Pt Asphalt Spreader | | | | Therapy | CRPS | Janak Martinez MD | [facility] [address] | | | | | (complex | [address] | | | | | regional | [address] | Mailcode: | | | | | pain | [facility]stop | [facility] | | | | | syndrome), | [id number] | for Health | | | | | lower limb | [place], [place] | and Healing, | | | | | Gait | [address] | [address] | | | | | disturbance | Phone: | [place], [place] | | | | | Muscle pain | [phone] | [address] | | | | | Procedures | Fax: | Phone: | | | | | PHYSICAL | [phone] | [phone] | | | | | THERAPY | [...] regional pain | | | | [facility] | [place] [address] | syndrome), lower | | | | [address] | [phone] | limb (Primary Dx) | | | | Mailcode: CH3P | | | | | | [facility] | Specialist, Edu | | | | | and Healing, | Exercise [address] | | | | | Building | [address] [place], | | | | | Floor [place], [place] | [place] [address] | | | | | [address] | | | | | | [phone] | | | +--------+---------+ + + + [...] might be different f rom the original. [id number] BRODY FARAH Date of : 1990 Start of care: 02/14/2012 Date of onset: 02/14/2012 Referring/Attending Practitioner: Janak Riojas MD . Primary/Referral Diagnosis/ICD-9: 355.71B CRPS (complex regional pain syndrome), lower limb Insurance: Payor: [facility] [employer] [facility] Plan: BCBS OUT OF STATE Product Type: PP O Service period from: 02/14/2012 to: 08/12/2012 Number visits used/authorized: 02/23 [facility] PH[facility]ICAL THERAPY PROGRESS NOTE SUBJECTIVE: Age: 21 [...] today already. Pain rating at present: 8/10 Symptoms are aggravated by: waking up in [...] Activity 05/24/2012 05/10/2012 05/03/2012 Walk without crutches 1/4 mile /4 mile unilateral rows 7.5 x 5 scaption [...] any change in their status. Guillermo Sanon [facility] Mailcode: Ch3p 09[address] [facility], [address] [place] [phone] documented in this encounter Plan of Treatment Not on filedocumented as of this encounter Procedures + +--------+ + + + | Procedure Name | Priori | Date/Time | Associated Diagnosis | Comments | | | ty | | | | + +--------+ + + + | TN THERAPEUTIC | Routin | 05/24/2012 | CRPS (complex | | | EXERCISES | e | 6:23 PM | regional pain | | | | | PDT | syndrome), lower | | | | | | limb | | + +--------+ + + + | TN THERAPEUTIC | Routin | 05/24/2012 | CRPS [...]
--- OUTSIDE RECORDS SUMMARY | ~2020-03-23 | XMS | Encounter Summary ---
Demographics + + + | Address | [address] | | | [place] [address] | + + + | Home Phone | | + + + | Preferred Language | Unknown | + + + | Marital Status | Single | + + + | Jain Affiliation | [id number] | + + + | Race | Unknown | + + + | Ethnic Group | Unknown | + + + Author + + + | Author | [facility] | | | and [place] | + + + | Organization | [facility] | | | and [place] [...] [place] | | | | | [address] | | + + + + + | Bryant Farah | ECON | Unknown | | + + + + + Care Team Providers + +------+ + | Care Diploma Dental Assistant Name | Role | Phone | + +------+ + PCP | Unavailable | + +------+ + Encounter Details +--------+ + + + + | Date | Type | Department | Care Team | Description | +--------+ + + + + | 03/16/ | Hospital | [facility] | Conversion | Back pain | | 2013 | Encounter | CONVERSION [address] | Transaction, | | | | | [address] | Provider Unknown | | | | | [place], [place] | [phone] | | | | | [address] | | | | | | [phone] | | | +--------+ + + + [...]
--- OUTSIDE RECORDS SUMMARY | ~2020-03-23 | XMS | Encounter Summary ---
Demographics + + + | Address | [address] | | | [place] [address] | + + + | Home Phone [...] + + + | Author | [facility] | + + + | Organization | [facility] | + + + | Address | Unknown | + + + | Phone | Unavailable | + + + Support + + +---------+ + | Name | Relationship | Address | Phone | + + +---------+ + | Patricia Colin | ECON | Unknown | | + + +---------+ + Care Team Providers + +------+ + | Care Grades 9 12 Tutor Name | Role | Phone | + [...] | +--------+ + + + + | 12/14/ | Hospital | [place] [facility] | Bruna Quinones, | | | 2017 | Encounter | [address] | MD [address] | | | | | Ave Mailcode: [facility] | [place], [place] | | | | | [facility] | [address] | | | | | Health and Healing, | [phone] | | | | | [place] [address] | | | | | | [place], [place] | | | | | | [address] | | | | | | [phone] | | | +--------+ + + + [...] + + + | Blood Pressure | 100/59 | 12/14/2016 8:30 AM | | | | | PST | | + + + + + | Pulse | 82 | 12/14/2016 8:31 AM | | | | | PST | | + + + + + | Temperature | 37.2 C (98.9 F) | 12/14/2016 7:50 AM | | | | | PST | | + + + + + | Respiratory Rate | 16 | 12/14/2016 8:31 AM | | | | | PST | | + + + + + | Oxygen Saturation | 98% | 12/14/2016 8:37 AM | | | | | PST [...] documented in this encounter Discharge Instructions Instructions Darlin Doyle RN - 12/14/2016[place] Care Instructions after Colonoscopy You may resume your normal diet and medications unless told otherwise. Medications The medications you received can cause you to be forgetful and drowsy and will take the rem ainder of the day to wear off. DO NOT drink alcohol, drive, operate heavy machinery, sign legal documents, or make major d ecisions until tomorrow. Common After Effects ? Mild abdominal pain, bloating, and excessive gas. This is caused by the air that was put in your colon during the procedure. These symptoms will improve as you pass gas. ? You may bruise at your IV site. If you have pain, redness, or swelling at your IV site ap ply a warm compress. Activity Light activity such as walking will help you pass the air that was put into your colon. Complications Call your GI doctor if you have: Abnormal pain or any new unexplained symptoms. Bright red rectal bleeding Fever above 101.5 Redness, pain, or swelling at your IV site that is not relieved with warm compress. For any questions related to your procedure call: Tuesday- Tuesday 8:00- 4:30 Call the endoscopy department toll free ext. [phone] or After business hours or on weekends and holidays call the Hospital Pipe Machine Operator toll free [phone] Ext. [phone] or and have the GI doctor main line station engineer paged. The provider who performed your procedure is: Dr. Quinones Results of your colonoscopy: Normal Exam Recommended follow up Colonoscopy: At age 52 for colon cancer screening Follow up Appointments with: Primary care provider as needed Your primary care provider or referring provider will receive copies of the procedure repor t and all pathology reports with recommendations for treatment if needed. If Noted above that biopsies were taken or polyps removed we will receive the results in ap proximately 1 week. If you have not heard from us after 2 weeks please call for your results . documented in this encounter Medications at Time [...] documented as of this encounter Progress Notes Bruna Quinones MD - 12/14/2016 8:04 AM PSTFormatting of this note might be different fr om the original. PROCEDURE NOTE: Subjective: Tracie Farah is a 26 y.o. female MR# [id number] presents today for colonoscopy NPO since midnight except prep PARQ held and patient agreeable to proceeding with above procedure. Objective: Vital Signs: BP 110/58 | Pulse 71 | Temp 37.2 C (98.9 F) | RR 16 | SpO2 100% Neuro: patient is Patient oriented X3. Mental status clear and intact Mallampati Score: II ASA class: II Neck Neck supple. No adenopathy Respiratory Lungs clear to auscultation bilaterally with good air exchange Cardiac Regular Rate and Rhythm. Abdomen: soft, normal active bowel sounds, nontender, no masses, no organomegaly Medications: Meds reviewed Allergies: Allergies as of 10/25/2016 - Fully Reviewed 09/14/2016 Allergen Reaction Noted Morphine Anaphylaxis 02/14/2012 See procedure note 12/14/2016 documented in this e ncounter Plan of Treatment Not on filedocumented as of this encounter Procedures + +--------+ + + + | Procedure Name | Priori | Date/Time | Associated Diagnosis | Comments | | | ty | | | | + +--------+ + + + | COLONOSCOPY | | 12/14/2016 | | Results for this | | | | 12:00 AM | | procedure are in the | | | | PST | | results section. | + +--------+ + + + documented in this encounter Results COLONOSCOPY (12/14/2016 12:00 AM PST) + + + | Narrative | Performed At | + + + | | | + + + documented in this encounter Visit Diagnoses + + | Diagnosis | + + | Epigastric pain - Primary Abdominal pain, epigastric | + + documented in this encounter Administered Medications + +--------+ +--------+------+------+ | Medication Order | MAR | Action | Dose | Rate | Site | | | Action | Date | | | | + +--------+ +--------+------+------+ | fentaNYL (SUBLIMAZE) injection | Given | 12/14/19 | 25 mcg | | | | intravenous, INTRAPROCEDURE PRN, | | 17 8:18 | | | | | Starting 12/14/16 at 0807, | | AM PST | | | | | Until e 12/14/16 at 0818 | | | | | | + +--------+ +--------+------+------+ +-------+ +--------+---+---+ | Given | 12/14/19 | 25 mcg | | | | | 17 8:15 | | | | | | AM PST | | | | +-------+ +--------+---+---+ | Given | 12/14/19 | 50 mcg | | | | | 17 8:12 | | | | | | AM PST | | | | +-------+ +--------+---+---+ + +---+ | | | + +---+ | lidocaine viscous (XYLOCAINE | | | VISCOUS) 2 % mucosal solution 15 | | | mL 15 mL, oral, INTRAPROCEDURE | | | PRN, Starting Tue12/14/16 at | | | 0736, Until Tue12/14/16 at 1557, | | | sore oropharynx | | + +---+ | | | + +---+ + +-------+ +------+---+---+ | midazolam (PF) (VERSED) | Given | 12/14/19 | 1 mg | | | | injection INTRAPROCEDURE PRN, | | 17 8:18 | | | | | Starting 12/14/16 at 0807, | | AM PST | | | | | Until 12/14/16 at 0818 | | | | | | + +-------+ +------+---+---+ +-------+ +------+---+---+ | Given | 12/14/19 | 1 mg | | | | | 17 8:15 | | | | | | AM PST | | | | +-------+ +------+---+---+ | Given | 12/14/19 | 2 mg | | | | | 17 8:12 | | | | | | AM PST | | | | +-------+ +------+---+---+ +---+---+ | | | +---+---+ + +---------+ + + +---+ | NaCl 0.9 % solution 50 mL/hr, | New Bag | 12/14/19 | 50 mL/hr | 50 mL/hr | | | intravenous, CONTINUOUS, Starting | | 17 8:13 | | | | | 12/14/16 at 0815, Until e | | AM PST | | | | | 12/14/16 at 1557 | | | | | | + +---------+ + + +---+ + +---+ | | | + +---+ | simethicone (MYLICON) | | | suspension 3.333 mg 3.333 mg | | | (rounded from 3.3333 mg = 1 | | | drop), oral, INTRAPROCEDURE PRN, | | | Starting 12/14/16 at 0736, | | | Until 12/14/16 at 1557, gas | | | bubbles in endoscope | | + +---+ | | | + +---+ documented in this encounter"
--- OUTSIDE RECORDS SUMMARY | ~2020-03-23 | XMS | Encounter Summary ---
Demographics + + + | Address | [address] | | | [place] [address] | + + + | Home Phone [...] Team Providers + +------+ + | Care Pad Machine Operator Name | Role | Phone | + +------+ + | Justo Vazquez MD | PCP | | + +------+ + Encounter Details +--------+ + + + + | Date | Type | Department | Care Team | Description | +--------+ + + + + | 05/05/ | Documentati | [facility] Comprehensive | Alex Sanchez, | | | 2018 | on | Pain Center at | ,PhD [address] | | | | | [facility] | [facility] [address] | | | | | [address] | [place], [place] | | | | | Mailcode: CH15P | [address] | | | | | [place] for [facility] | [phone] | | | | | and Healing, | | | | | | | | | | | | Floor [place], [place] | | | | | | [address] | | | | | | [phone] | | | +--------+ + + + [...]
--- OUTSIDE RECORDS SUMMARY | ~2020-03-23 | XMS | Encounter Summary ---
Demographics + + + | Address | [address] | | | [place] [address] | + + + | Home Phone [...] Team Providers + +------+ + | Care Tow Car Driver Name | Role | Phone | + +------+ + | Justo Vazquez MD | PCP | | + +------+ + Encounter Details +--------+ + + + + | Date | Type | Department | Care Team | Description | +--------+ + + + + | 07/24/ | MyChart | Endoscopic | Kenny Gaspar MD | Dietary information | | 2016 | Encounter | Procedural Unit at | | | | | | [address] | | | | | | [address] | | | | | | [place], | | | | | | [address] [place] [address], | | | | | | [place] [address] | | | | | | [phone] | | | +--------+ + + + [...]
--- OUTSIDE RECORDS SUMMARY | ~2020-03-23 | XMS | Encounter Summary ---
Demographics + + + | Address | [address] | | | [place] [address] | + + + | Home Phone [...] Providers + +------+ + | Care Business Coordinator Name | Role | Phone | + +------+ + | Justo Vazquez MD | PCP | | + +------+ + Encounter Details +--------+ + + + + | Date | Type | Department | Care Team | Description | +--------+ + + + + | 01/26/ | Document-Sc | Health Information | Unknown . | | | 2017 | anned | Services [address] | | | | | | [address] | | | | | | Mailcode: OP17A | | | | | | [facility] | | | | | | [place], [place] | | | | | | [address] | | | | | | [phone] | | | +--------+ + + + [...]
--- OUTSIDE RECORDS SUMMARY | ~2020-03-23 | XMS | Encounter Summary ---
Demographics + + + | Address | [address] | | | [place] [address] | + + + | Home Phone [...] Team Providers + +------+ + | Care Unit Controller Name | Role | Phone | + +------+ + | Justo Vazquez MD | PCP | | + +------+ + Encounter Details +--------+ + + + + | Date | Type | Department | Care Team | Description | +--------+ + + + + | 05/14/ | Telephone | [facility] | Alex Sanchez, | | | 2019 | | Pain Center at | ,PhD [address] | | | | | [facility] | [facility] [address] | | | | | [address] | [place], [place] | | | | | Mailcode: CH15P | [address] | | | | | [place] for [facility] | [phone] | | | | | and Healing, | | | | | | | | | | | | Floor [place], [place] | | | | | | [address] | | | | | | [phone] | | | +--------+ + + + [...]
--- OUTSIDE RECORDS SUMMARY | ~2020-03-23 | XMS | Encounter Summary ---
Demographics + + + | Address | [address] | | | [place] [address] | + + + | Home Phone | | + + + | Preferred Language | Unknown | + + + | Marital Status | Single | + + + | Muslim Affiliation | 1073 | + + + | Race | Unknown | + + + | Ethnic Group | Unknown | + + + Author + + + | Author | [facility] | | | and [place] | + + + | Organization | 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 T his also failed to provide adequate [...] stable condition. She will follow-up with her [facility] physician for continued medical management. She [...] 03/22/131929 Date of Service: 03/22/131920 Status: Signed Electrical Prospecting Operator: Ava Carolina RN (Registered Nurse) Patient tolerated [...] 03/22/131854 Date of Service: 03/22/131854 Status: Signed Electrical Prospecting Operator: Ava Carolina RN (Registered Nurse) Discharge teaching [...] 03/22/13656 Date of Service: 03/22/13651 Status: Signed Electrical Prospecting Operator: Ulices Scott MD (Physician) [facility] Service: Interventional Pain Management Pre-Operative History & [...] Author: JUSTIN Ospina Service: (none) Author Type: Cotton Buyer Filed: 03/21/13 1036 Date of Service: 03/21/13 103 Status: Addendum Electrical Prospecting Operator: JUSTIN Ospina (Cotton Buyer) Related Notes: Original Note by JUSTIN Ospina (Cotton Buyer) filed at 03/21/13 1 036 Met w/22yo F Pt who lives w/parents in [place], [place]. Pt lives in two story house [...] will transport home. Pt has info for [employer]. lices Brock MD - 03/21/2013 7:27 AM PDT Progress Notes by Ulices Scott MD at 03/21/13726 Author: Ulices Scott MD Service: Interventional Pain Management Author Type: Physic deya Filed: 03/21/1335 Date of Service: 03/21/13726 Status: Signed Electrical Prospecting Operator: Ulices Scott MD (Physician) [facility] Service: Interventional Pain Management Pre-Operative History & [...] Date of Service: 03/21/13 0640 Status: Signed Electrical Prospecting Operator: Darlin [place], RN (Registered Nurse) Pt had [...] to BP until MD was contacted. Dr. Scott notified of pt's BP and pain level [...]
--- OUTSIDE RECORDS SUMMARY | ~2020-03-23 | XMS | Encounter Summary ---
Demographics + + + | Address | [address] | | | [place] [address] | + + + | Home Phone [...] Team Providers + +------+ + | Care Critical Care Registered Nurse Name | Role | Phone | + +------+ + | Justo Vazquez MD | PCP | | + +------+ + Reason for Visit + + + | Reason | Comments | + + + | Care Coordination | | + + + Encounter Details +--------+ + + + + | Date | Type | Department | Care Team | Description | +--------+ + + + + | 06/07/ | Telephone | [facility] Ilene | Ilene Bright, | Care Coordination | | 2016 | | Pain Center at | BRUSH OPERATOR [address] | | | | | [facility] | [place], [place] | | | | | [address] | [address] | | | | | Mailcode: CH15P | [phone] | | | | | [facility] | | | | | | and Healing, | | | | | | Building | | | | | | Floor [facility] [place] | | | | | | [address] | | | | | | [phone] | | | +--------+ + + + [...]
--- OUTSIDE RECORDS SUMMARY | ~2020-03-23 | XMS | Encounter Summary ---
Demographics + + + | Address | [address] | | | [place] [address] | + + + | Home Phone | | + + + | Preferred Language | Unknown | + + + | Marital Status | Single | + + + | Presybeterian Affiliation | FMD | + + + [...] Providers + +------+ + | Care Residential Program Manager Name | Role | Phone | + +------+ + | Justo Vazquez MD | PCP | | + +------+ + Encounter Details +--------+ + + + + | Date | Type | Department | Care Team | Description | +--------+ + + + + | 03/23/ | MyChart | [facility] | Ilene Bright, | Welcome | | 2017 | Encounter | Pain Center at | SECOND WATCH SERGEANT [address] | | | | | [facility] | [place], [place] | | | | | [address] | [address] | | | | | Mailcode: CH15 | [phone] | | | | | [place] for [facility] | | | | | | and Healing, | | | | | | | | | | | | Floor [place], [place] | | | | | | [address] | | | | | | [phone] | | | +--------+ + + + [...]
--- OUTSIDE RECORDS SUMMARY | ~2020-03-23 | XMS | Encounter Summary ---
Demographics + + + | Address | [address] | | | [place] [address] | + + + | Home Phone [...] Team Providers + +------+ + | Care County Manager Name | Role | Phone | + +------+ + | Allegra Chaudhary | PCP | | + +------+ + Encounter Details +--------+ + + + + | Date | Type | Department | Care Team | Description | +--------+ + + + + | 10/21/ | Telephone | [facility] | Antony Beltre, | | | 2014 | | [place] at [facility] [address] | [address] | | | | | [address] | [place] [address] | | | | | Mailcode: [place] | [phone] | | | | | for Health and | | | | | | [place], [address] | | | | | | [place], [place] | | | | | | [address] | | | | | | [phone] | | | +--------+ + + + [...]
--- OUTSIDE RECORDS SUMMARY | ~2020-03-23 | XMS | Encounter Summary ---
Demographics + + + | Address | [address] | | | [place] [address] | + + + | Home Phone [...] Team Providers + +------+ + | Care Pearl Peller Name | Role | Phone | + +------+ + | Justo Vazquez MD | PCP | | + +------+ + Encounter Details +--------+ + + + + | Date | Type | Department | Care Team | Description | +--------+ + + + + | 01/11/ | Procedure | Diagnostic Imaging | | | | 2016 | Pass | Services at [facility] | | | | | | [address] | | | | | | Giuliana Roberson | | | | | | [facility] | | | | | | [place], [place] | | | | | | [address] | | | | | | [phone] | | | +--------+ + + + [...]
--- OUTSIDE RECORDS SUMMARY | ~2020-03-23 | XMS | Encounter Summary ---
Demographics + + + | Address | [address] | | | [place] [address] | + + + | Home Phone [...] Team Providers + +------+ + | Care Global Position System Technician Name | Role | Phone | [...] | | syndrome | [place] | [facility] | | | | | type [address] | [address] [place], | | | | | left lower | [place], [place] | [place] | | | | | extremity | [address] | [address] | | | | | Procedures | Phone: | Phone: | | | | | REQUEST TO | [phone] | [phone] | | | | | SURGERY | Fax: | Fax: | | | | | FORENSICS ANALYST | [phone] | [phone] | +--------+---------+ + + + + Encounter Details +--------+---------+ + + + | Date | Type | Department | Care Team | Description | +--------+---------+ + + + | 09/28/ | Office | [facility] Comprehensive | Yun Frey, ROLLING ATTENDANT | Complex regional | | 2018 | Visit | Pain Center at | [address] | pain syndrome type 1 | | | | [facility] | [place], [place] | of left lower | | | | [address] | [address] | extremity (Primary | | | | Mailcode: CH15P | [phone] | Dx); Arthralgia of | | | | [place] for [facility] | | left lower leg | | | | and Healing, | | | | | | | | | | | | Floor [place], [place] | | | | | | [address] | | | | | | [phone] | | | +--------+---------+ + + + [...] the time to see us in the [facility]. It was great to [...] PM PST September 28, [id number] [facility] Comprehensive Pain Center Return Visit [...] and a pain drawing which I reviewed. [facility] Questionnaire Follow-up Patient 10/10/2017 Please describe the [...] turned up to 7%. After seeing th guest services representative today and killian ing adjustments, she [...] Hemroidectomy Trial spinal cord stimulator leads 08/02/2012 [facility], Surgeon: Janak Riojas MD Cholecystectomy [...] the vein (IV) every eight hour s. 7881-7345-96 COMPOUNDED MED RX CONTROLLED (SEE ADMIN INSTRUCT [...] by physician. Concentration is 150mg/mL. Compounded by [facility] ) KETOROLAC IM Inject into the [...] (IV) every twel ve hours as needed. 5284-1439-66 ONDANSETRON 4 MG DISINTEGRATING TABLET Dissolve 1 tablet in mouth every twelve hours as nee ded. PANTOPRAZOLE 40 MG TABLET,DELAYED RELEASE Take 40 mg by mouth once daily. PEG 3350-ELECTROLYTES 236 GRAM-22.74 GRAM-6.74 GRAM-5.86 GRAM SOLUTION Take as directed by [facility] Dig[facility]ive [facility]- 2 gallon bowel [...] been given programming opti ons by the [facility]'s device guest services representative, Michele. At this time, there is no complication from the DRG trial. Recommendations/Plan: 1. Recommend to keep her appointment with Dr. Sanchez on 10/02/2018. 2. To contact the [facility]'s rep if she has any further question on programming. 09/28/2018: I, Dayana Ivan, am functioning as a biomedical engineering director for Yun Frey NP. I have reviewed and verified the above scribed note of my visit with this patient as record ed by Ms. Dayana Ivan. Jeanine Frey (Mr.) MSN, ACNP- Nurse Practitioner Acute [facility] [address] [place] [id number] documented in this enco unter Plan of [...]
--- OUTSIDE RECORDS SUMMARY | ~2020-03-23 | XMS | Encounter Summary ---
Demographics + + + | Address | [address] | | | [place] [address] | + + + | Home Phone [...] Team Providers + +------+ + | Care Diesel Engine Operator Name | Role | Phone | [...] | | | | | Procedures | [place], [place] | | | | | | MR | [id number] | | | | | | ENTEROGRAPHY | | | | | | | ABDOMEN AND | | | | | | | PELVIS WWO | | | | | | | CONTRAST | | | +--------+--------+ + + + [...] | | | | | Procedures | [place], [place] | | | | | | MR | [id number] | | | | | | ENTEROGRAPHY | | | | | | | ABDOMEN AND | | | | | | | PELVIS WWO | | | | | | | CONTRAST | | | +--------+--------+ + + + + Encounter Details +--------+ + + + + | Date | Type | Department | Care Team | Description | +--------+ + + + + | 01/31/ | Hospital | Diagnostic Imaging | Celia Lin MD | | | 2017 | Encounter | Services at [facility] | [address] | | | | | [address] | [place], [place] | | | | | [address] [place] | [address] | | | | | [facility] | [phone] | | | | | [place], [place] | | | | | | [address] | | | | | | [phone] | | | +--------+ + + + [...] abdomen and pelvis with and without contrast. | [facility] | | HISTORY: Evaluate for lymphoma, intussusception, small bowel | RADIOLOGY VOICE | | Crohns. Complex regional pain syndrome with 3 or 4 weeks of abdominal | RECOGNITION | | pain and negative workup (colonoscopy, anorectal manometry). | | | COMPARISON: CT 10/23/2015. TECHNIQUE: Multiplanar MRI of the | | | abdomen and pelvis was performed without and with gadolinium based | | | intravenous contrast. Three bottles of neutral oral contrast were | | | administered (1500mL). Dynamic post-contrast imaging was performed. | | | FINDINGS: Stomach: No wall thickening or abnormal | | | enhancement. Small Bowel: No dilation, wall edema/thickening or | | | abnormal enhancement. Colon: Normal wall thickness and | | | enhancement. No dilation is seen. Other: Visualized portions of | | | the upper abdominal organs are normal. 6 mm left upper pole renal | | | cyst. Right corpus luteal cyst. No ascites or lymphadenopathy. | | | IMPRESSION: Unremarkable MR enterography. I have personally | | | reviewed [...] gadoterate meglumine (DOTAREM) | IV Push | 02/01/20 | 14 mL | | | | [...] +-------+ +------+---+---+ +-------+ +------+---+---+ | Given | 03/20/20 | 1 mg | | | | | 17 3:41 | | | | | | PM PDT | | | | +-------+ +------+---+---+ +---+---+ | | | +---+---+ documented in this encounter"
--- OUTSIDE RECORDS SUMMARY | ~2020-03-23 | XMS | Encounter Summary ---
Demographics + + + | Address | [address] | | | [place] [address] | + + + | Home Phone [...] Providers + +------+ + | Care Cathode Washer Name | Role | Phone | + +------+ + | Justo Vazquez MD | PCP | | + +------+ + Encounter Details +--------+ + + + + | Date | Type | Department | Care Team | Description | +--------+ + + + + | 05/14/ | Telephone | [facility] | Alex Sanchez, | | | 2019 | | Pain Center at | ,PhD [address] | | | | | [facility] | [facility] [address] | | | | | [address] | [place], [place] | | | | | Mailcode: CH15P | [address] | | | | | [place] for [facility] | [phone] | | | | | and Healing, | | | | | | | | | | | | Floor [place], [place] | | | | | | [address] | | | | | | [phone] | | | +--------+ + + + [...]
--- OUTSIDE RECORDS SUMMARY | ~2020-03-23 | XMS | Encounter Summary ---
Demographics + + + | Address | [address] | | | [place] [address] | + + + | Home Phone [...] Team Providers + +------+ + | Care Tying Machine Operator Name | Role | Phone [...] Rd | | | | | | [place], [place] | | | | | | [address] | | | +--------+ + + + [...]
--- OUTSIDE RECORDS SUMMARY | ~2020-03-23 | XMS | Encounter Summary ---
Demographics + + + | Address | [address] | | | [place] [address] | + + + | Home Phone [...] Author + + + | Author | [facility] | + + + | Organization | [facility] | + + + | Address | Unknown | + + + | Phone | Unavailable | + + + Support + + +---------+ + | Name | Relationship | Address | Phone | + + +---------+ + | Patricia Colin | ECON | Unknown | | + + +---------+ + Care Team Providers + +------+ + | Care Braille Transcriber Name | Role | Phone | + +------+ + | Justo Vazquez MD | PCP | | + +------+ + Reason for Visit + + + | Reason | Comments | + + + | Follow-up Plan | ortho question | + + + Encounter Details +--------+ + + + + | Date | Type | Department | Care Team | Description | +--------+ + + + + | 01/13/ | Telephone | KEVIN Odom | Alex Sanchez, | Follow-up Plan | | 2018 | | Pain Center at | ,PhD [address] | (ortho question) | | | | [facility] | [facility] | | | | | [address] | [place], [place] | | | | | Mailcode: CH15P | [address] | | | | | [facility] | [phone] | | | | | and Healing, | | | | | | Building | | | | | | [place], [place] | | | | | | [address] | | | | | | [phone] | | | +--------+ + + + [...]
--- OUTSIDE RECORDS SUMMARY | ~2020-03-23 | XMS | Encounter Summary ---
Demographics + + + | Address | [address] | | | [place] [address] | + + + | Home Phone [...] Team Providers + +------+ + | Care Electrical Logger Name | Role | Phone | + +------+ + | Justo Vazquez MD | PCP | | + +------+ + Encounter Details +--------+ + + + + | Date | Type | Department | Care Team | Description | +--------+ + + + + | 01/06/ | Document-Nj | [facility] Comprehensive | Alex Sanchez, | | | 2018 | annemily | Pain Center at | ,PhD [address] | | | | | [facility] | [facility] [address] | | | | | [address] | [place], [place] | | | | | Mailcode: CH15P | [address] | | | | | [place] for [facility] | [phone] | | | | | and Healing, | | | | | | | | | | | | Floor [place], [place] | | | | | | [address] | | | | | | [phone] | | | +--------+ + + + [...]
--- OUTSIDE RECORDS SUMMARY | ~2020-03-23 | XMS | Encounter Summary ---
Demographics + + + | Address | [address] | | | [place] [address] | + + + | Home Phone [...] Team Providers + +------+ + | Care Dye Tank Tender Name | Role | Phone | [...] + + + + | 03/11/ | Documentati | KEVIN Odom | Zeeshan Mahoney MD | Pain | | 2019 | on | Pain Center at | [address] | | | | | [facility] | [facility], | | | | | [address] | [place] [address] | | | | | Mailcode: 15P | [phone] | | | | | [facility] | | | | | | [address], | | | | | | Building | | | | | | [place], [place] | | | | | | [address] | | | | | | [phone] | | | +--------+ + + + [...]
--- OUTSIDE RECORDS SUMMARY | ~2020-03-23 | XMS | Encounter Summary ---
Demographics + + + | Address | [address] | | | [place] [address] | + + + | Home Phone [...] Providers + +------+ + | Care Straw Hat Presser Name | Role | Phone | + [...] + + | 10/06/ | Telephone | [facility] Comprehensive | Yosef Kenney MD | Dermatitis | | 2018 | | Pain Center at | [address] | | | | | [facility] | [facility] | | | | | [address] | [place] [address] | | | | | Mailcode: CH15P | [phone] | | | | | [facility] | | | | | | [address], | | | | | | Building | | | | | | [place], [place] | | | | | | [address] | | | | | | [phone] | | | +--------+ + + + [...]
--- OUTSIDE RECORDS SUMMARY | ~2020-03-23 | XMS | Encounter Summary ---
Demographics + + + | Address | [address] | | | [place] [address] | + + + | Home Phone [...] Providers + +------+ + | Care Organ Assembler Name | Role | Phone | [...] Digestive Health | Ava Carbajal | Question (Megan | | 2017 | | Center at [facility] [address] | MD Melissa | Marker instructions) | | | | [address] | | | | | | Mailcode: Center | | | | | | for Health and | | | | | | [facility], [place] [address] | | | | | | [place], [place] | | | | | | [address] | | | | | | [phone] | | | +--------+ + + + [...]
--- OUTSIDE RECORDS SUMMARY | ~2020-03-23 | XMS | Encounter Summary ---
Demographics + + + | Address | [address] | | | [place] [address] | + + + | Home Phone [...] Team Providers + +------+ + | Care Dragger Out Name | Role | Phone | + [...] Medical Records | | 2017 | | [place] [id number] | | Review | | | | [address] | | | | | | Mailcode: [place] | | | | | | [facility] and | | | | | | [facility] | | | | | | [place], [place] | | | | | | [address] | | | | | | [phone] | | | +--------+ + + + [...]
--- OUTSIDE RECORDS SUMMARY | ~2020-03-23 | XMS | Encounter Summary ---
Demographics + + + | Address | [address] | | | [place] [address] | + + + | Home Phone [...] Team Providers + +------+ + | Care Direct Chill Caster Name | Role | Phone | + [...] | | Pain | Complex | Ilene, PLASTIC WORKER | Catriona M, | | | | Management | regional | [address] | PSY D [address] | | | | | pain | [address] | [address] | | | | | syndrome | [place], [place] | [place], [place] | | | | | type 1 of | [address] | [address] Phone: | | | | | left lower | Phone: | [phone] | | | | | extremity | [phone] | Fax: | | | | | Intractable | Fax: | [phone] | | | | | cyclical | [phone] | | | | | | vomiting [...] | | | | | | [place] | | | | | | | PSYCHIATRIC | | | | | | | DIAGNOSTIC | | | | | | | EVAL, NO MED | | | | | | | [place] | | | | | | | PSYCH TSTNG | | | | | | | PSYCH/PHYS | | | | | | | [place] | | | | | | | PSYCHOTHERAP | | | | | | | Y, 45 MIN | | | +--------+---------+ + + + + Encounter Details +--------+---------+ + + + | Date | Type | Department | Care Team | Description | +--------+---------+ + + + | 10/11/ | Office | Pain Center at [facility] | Jamel Bravo, | 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 [address] | with mixed anxiety | | | | Mailcode: [facility] | [place], [place] | and depressed mood | | | | [place] for [facility] | [address] | (Primary Dx); | | | | and Healing, | [phone] | Complex regional | | | | | | pain syndrome type 1 | | | | Floor [place], [place] | | of left lower | | | | [address] | | extremity; Abdominal | | | | [phone] | | pain, unspecified | | | [...] Jamel Bravo, PhD - 10/11/2017 10:50 AM [facility] Initial Psychologica l Evaluation IDENTIFYING INFORMATION: Tracie Farah is a 27 y.o. female Date of : 1990 Consulting Psychologist: JAMEL BRAVO PHD Consultation Date: 10/11/2017 Referring Provider: [place] Bright Identifying Information: Tracie Farah is a 27 y.o. female who lives with her paren naeem in [place], [place]. The patient was referred for pain [...] by physician. Concentration is 150mg/mL. Compounded by [employer] ([phone]), Disp: , Rfl: 5 lamoTRIgine 200 mg [...] oral recon soln, Take as directed by [facility]- 2 gallon bowel prep, Disp: 8000 [...] e. 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 For enjoyment the patient watches TV, reads, [...] time I spent was approximately 50 minutes wjvr-fe-jadl with the patient and approxima tely 1 hour 40 minutes of yxj-mtrz-kq-face testing, interpreting and synthesizing results. Jamel Bravo, PhD PAIN CENTER AT [facility] 15TH FLOOR [address] [facility] Mail Code: Ch15p [place] [address] documented in this en counter [...]
--- OUTSIDE RECORDS SUMMARY | ~2020-03-23 | XMS | Encounter Summary ---
Demographics + + + | Address | [address] | | | [place] [address] | + + + | Home Phone [...] Providers + +------+ + | Care Research Program Manager Name | Role | Phone | + +------+ + | Justo Vazquez MD | PCP | | + +------+ + Encounter Details +--------+ + + + + | Date | Type | Department | Care Team | Description | +--------+ + + + + | 04/23/ | Pharmacy | [facility] | | | | 2019 | Visit | & [facility] | | | | | | [address] | | | | | | Mailcode: [place] | | | | | | [facility] and | | | | | | Healing, Building 1 | | | | | | [place], [place] | | | | | | [address] | | | | | | [phone] | | | +--------+ + + + [...]
--- OUTSIDE RECORDS SUMMARY | ~2020-03-23 | XMS | Encounter Summary ---
Demographics + + + | Address | [address] | | | [place] [address] | + + + | Home Phone [...] Providers + +------+ + | Care Cloth Dyer Name | Role | Phone | + +------+ + | Allegra Gandhi | PCP | | + +------+ + Reason for Referral Consult to [place] (Routine) +--------+--------+ + + [...] | | | regional | [place] | [address] | | | | | pain | FAMILY | Mailstop | | | | | syndrome), | MEDICINE P | [address] | | | | | lower limb | [address] | [place], [place] | | | | | Pain in | [place], | [address] | | | | | joint, lower | [place] [address] | Phone: | | | | | leg | Phone: | [phone] | | | | | Procedures | [phone] | Fax: | | | | | REQUEST TO | Fax: | [phone] | | | | | SURGERY | [phone] | | | | | | MEDICAL RECORDS DIRECTOR | | | +--------+--------+ + + + + Reason for Visit Consultation (Routine) +--------+--------+ + + + + [...] | | | sympathetic | [place] | [address]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 | FAMILY | Mailstop | | | | | of lower | MEDICINE P | [address] | | | | | limb | [address] | [place], [place] | | | | | | [place], | [address] | | | | | | [place] [address] | Phone: | | | | | | Phone: | [phone] | | | | | | [phone] | Fax: | | | | | | Fax: | [phone] | | | | | | [phone] | | +--------+--------+ + + + + Encounter Details +--------+---------+ + + + | Date | Type | Department | Care Team | Description | +--------+---------+ + + + | 06/06/ | Office | [facility] Comprehensive | Dale Cantu, | CRPS (complex | | 2011 | Visit | Pain Center at | MD [address] [facility] | regional pain | | | | [facility] | [facility] [id number] | syndrome), lower | | | | [address] | [place], [place] | limb; Pain in joint, | | | | Mailcode: CH15P | [address] | lower leg | | | | Center for Health | [phone] | | | | | and Healing, | | | | | | | | | | | | Floor [place], [place] | | | | | | [address] | | | | | | [phone] | | | +--------+---------+ + + + [...] + + + | Blood Pressure | 138/77 | 06/06/2012 11:01 AM | | | | | PDT | | + + + + + | Pulse | 62 | 06/06/2012 11:01 AM | | | | | PDT | | + + + + + | Temperature | 36.8 C (98.2 F) | 06/06/2012 11:01 AM | | | | | PDT | | + + + + + | Respiratory Rate | - | - | | + + + + + | Oxygen Saturation | 100% | 06/06/2012 11:01 AM | | | | | PDT | | + + + + + | Inhaled Oxygen | - | - | | | Concentration | | | | + + + + + | Weight | 81.6 kg (180 lb) | 06/06/2012 11:01 AM | | | | | PDT | | + + + + + | Height | - | - | | + + + + + | Body Mass Index | 29.95 | 03/17/2012 3:42 PM | | | | | PDT | | + + + + + documented in this encounter Patient Instructions Patient Instructions Dale Cantu MD - 06/06/2012 11:49 [facility] Pre-Procedure Instructions: The procedure you discussed with your doctor is called: SCS TRIAL LUMBAR [facility]. Please make sure this is scheduled with the De Icer Installer. Please bring a truck driver supervisor with you. We may give you medications that make you drowsy or otherw ise unsafe to drive. If you do not have a truck driver supervisor, we will not be able to do [...] PLEASE CONTACT THE COMPREHENSIVE PAIN CENTER AT [phone] ([phone]) FOR QUESTIONS OR IF YOU NEED TO CANCEL YOUR APPOINTMENT. [facility] Center documented in this encounter Progress Notes Dale Cantu MD - 06/06/2012 11:26 AM PDTI saw and evaluated the patient with Fellow Nhan Elaine MD, who conducted the initial history. I reviewed the history in detail and edited his note. I was present for the examination and formulation portions of the encounte r. I agree with the findings and the plan of care as documented in our notes. Ms. Farah has had extensive treatment efforts for her Complex Regional Pain Syndrome inc luding physical therapy, a structured pain program, multiple medications, lumbar sympathetic block. She has made improvements in her walking and mood, but her pain and limitations rem ain significant. We discussed options of continuing with current treatment and adding new m edications or a spinal cord stimulator trial. She is interested in a trial. PARQ, but cons ent not signed. Given information. DALE CANTU MD Production Associate, [facility] Plate And Frame Filter Operator, Pain Medicine Professor, Anesthesiology & Perioperative Medicine ollHomer manriquez MD - 06/06/2012 11:17 AM PDT [facility] Return Visit with Dr. Dale Cantu 06/06/2012 Tracie Farah; ; : 1990 History of Present Illness: Ms. Farah was last seen by Dr. Cantu on 03/17/12 for She has a diagnosis of CRPS of the lef foot. At that time, the plan was: 1. Continue working with Dr. Goldie Feldman in pain psychology and Guillermo Sanon with physical therapy 2. The book Managing Pain Before It Manages You, by Tayler Talavera M.D., Ph.D. was recom mended to the patient 3. Work on avoiding the stress that can make the pain flares worse, recognizing it when it happens, actively use the techniques Dr. Feldman is teaching her. 4. Avoid use of lorazepam, hydrocodone/APAP, and ibuprofen except on those days when she chowdhury s a pain flare. Use these medications in combination with the strategies she is learning isaac Feldman to help her cope with the acute pain flares 5. Continue working towards increased movement of the foot and less reliance on crutches 6. Consider taking duloxetine earlier in the evening to try to mitigate the fatigue 7. Consider nortriptyline or Memantine in the future 8. Follow-up in 1 month. She is here today for a follow up visit and has the following problem list: Patient Active Problem [...] and a pain drawing which I reviewed. [facility] Brief Pain Inventory: (ten= worst possible pain or complete interference) Right Now: 8 (06/06/121101) Least in 24 hours: 8 (06/06/121101) Worst in 24 hours: 9 (06/06/121101) Average: 8 (06/06/121101) % Relief (med/treat): 10 (06/06/121101) General Activity: 8 (06/06/121101) Mood: 10 (06/06/121101) Walking Ability: 8 (06/06/121101) Normal Work: 6 (06/06/121101) Relations with Others: 7 (06/06/121101) Enjoyment of Life: 9 (06/06/121101) Sexual Activity: 0 (06/06/121101) Sleep: 9 (06/06/121101) Since the last visit she states that her pain has not changed. She has not been seen by Dr Pj Monteiro since 03/20 as it was decided she could follow-up on an as needed basis. New treatment since her last visit includes weaning off duloxetine due to no change in her fatigue despite changing the dosing interval. Her primary care provider gave her a prescrip tion for nortriptyline, but she was instructed to not start it until she had her follow-up v isit here. At home she continues to take either hydrocodone-acetaminophen 10-325 (2 tablet s two times a day) or oxycodone, and lorazepam 1 mg once per day. She has started using ket orolac injections and dissolving ondansetron to help prevent trips to the ER. She has not b een to the ER in the last 6-8 weeks. The pain is located primarily in her left foot but she is also endorsing "body pains" richi lar to having the flu including pain in her right leg. She reports no other change in past [...] Not on file Alcohol Use: No Current Outpatient Prescriptions Medication Sig HYDROcodone-acetaminophen (NORCO) [...] Take 8 mg by mouth once daily. promethazine 25 mg Oral Tablet Take 25 mg by mouth four times daily as needed. Allergies Allergen Reactions Morphine Anaphylaxis Ms. Farah reports side effects which include: sedation with the duloxetine which she chowdhury s discontinued. The Review of Systems obtained by the ASSISTANT SUPERINTENDENT was reviewed. Additional Review of Systems: Bones, Joints, and Muscles: atrophy, cramps , joint pain, muscle pain, stiffness and swelli ng Gastrointestinal System: negative Genitourinary System: negative If yes, plan: Urinary Incontinence Present: no Nervous System: numbness and weakness Psychiatric History: depressed mood, decreased energy, concentration and anxiety PE: BP 138/77 | Pulse 62 | Temp (Src) 36.8 C (98.2 F) (Oral) | Wt 81.647 kg (180 lb) | SpO2 100% Appears healthy. Alert; in no acute distress. Pleasant. Oriented , interactive. Ambulates with a limp favoring her left foot. Her shoe is off due to the discomfort it provides. Assessment: 355.71B CRPS (complex regional pain syndrome), lower limb 719.46 Pain in joint, lower leg Ms. Farah is a 22 y.o. female who is following up with Dr. Dale Cantu at the [facility] today for left foot CRPS which began in 2001 after a trampoline injury which resulted in compartm ent syndrome with fasciotomy, peroneal nerve injury, neuroma, and neurectomy. She has been followed by Dr. Cantu for this since 02/14/2012 and has undergone multidiscipli nary approach which has included multiple medications, physical therapy, and pain psychology . While she has had significant improvement with the psychological component of her pain, s he still has functional limitations and ongoing pain that limits day to day activities. We had previously discussed the possibility of a spinal cord stimulator trial, and today Ms. Amelie seth is very interested in pursuing this avenue of therapy. SCS has good evidence of effi cacy in CRPS and other neuropathic pain conditions. The first step is a percutaneous, tempo rary trial. If she gains benefit, i.e. greater than or equal to 50% relief during the SCS t rial period, we expect that the permanent system could be implanted. We reviewed equipment i ncluding the implanted pulse generator and leads. We discussed the surgery and and the overa ll process in detail. We discussed postoperative recovery and activity limitations (no lif ting, twisting, bending for 6-8 weeks). We discussed that with an SCS obtaining an MRI is t ypically contraindicated. In addition to surgical complications, we discussed the risks of wound infection, device malfunction, lead migration, and surgical complications. If Ms. Nemo renee does not respond well to the SCS trial then we will have the patient return to clinic for further evaluation and recommendations. Plan: 1. Schedule Procedure Spinal Cord Stimuation Trial. Provided detailed information to kelly tinoco. 2. No medication changes suggested at present, but future options include: 2.1 We discussed memantine, as there have been recent reports of a potential benefit in CRP S patients (Frantz N; rAi N; Anahy S; Wes A; Sriram S; Juvenal S; Nato K; Ryan jones H; Lydia Torres. Adapted from Clin J Pain. 2007 Jan-Feb;23(3):237-43.). This drug is an NM DA antagonist and has recent evidence to support its use in neuropathic and other pain pain conditions. Starting dose is 5 mg at night, titrate to 5-10 mg twice a day, though higher d oses may be of benefit. 2.2 NORTRIPTYLINE. Start 25 mg at night, after 3-7 days increase to 50 mg at night. Aft er another 3-7 days increase to 75 mg each night. The target dose is 50 - 150 mg nightly. A nalgesia onset can take weeks. It is prudent to obtain an EKG before starting this medicati on to rule out any conduction delay or rhythm disturbances. We discussed possible benefits and adverse effects of this and provided her with written information about the medication. 3. Continue physical therapy Homer Elaine MD Pain Medicine Fellow [facility] [place] Evelia Parsons - 11:07 AM PDTCMA History: 1. Has your pain [...] stiffness and swel ling 2. GASTROINTESTINAL SYSTEM negative 3. GENITOURINARY SYSTEM negative 4. NERVOUS SYSTEM numbness and weakness 5. PSYCHIATRIC HISTORY depressed mood, decreased energy, concentration , anxiety and fear of physical activity documented in this encoun ter Plan of Treatment Not on filedocumented as of this encounter Visit Diagnoses + + | Diagnosis | + + | CRPS (complex regional pain syndrome), lower limb Causalgia of lower limb | + + | Pain in joint, lower leg | + + documented in this encounter
--- OUTSIDE RECORDS SUMMARY | ~2020-03-23 | XMS | Encounter Summary ---
Demographics + + + | Address | [address] | | | [place] [address] | + + + | Home Phone [...] Providers + +------+ + | Care Automobile Drivers Name | Role | Phone | + +------+ + | Justo Vazquez MD | PCP | | + +------+ + Encounter Details +--------+ + + + + | Date | Type | Department | Care Team | Description | +--------+ + + + + | 03/11/ | Telephone | [facility] | Zeeshan Mahoeny MD | | | 2019 | | Pain Center at | [address] | | | | | [facility] | Giuliana Maldonado [place], | | | | | [address] | [place] [address] | | | | | Mailcode: CH15P | [phone] | | | | | [facility] | | | | | | and Healing, | | | | | | | | | | | | [place], [place] | | | | | | [address] | | | | | | [phone] | | | +--------+ + + + [...]
--- OUTSIDE RECORDS SUMMARY | ~2020-03-23 | XMS | Encounter Summary ---
Demographics + + + | Address | [address] | | | [place] [address] | + + + | Home Phone [...] Team Providers + +------+ + | Care Try On Baster Name | Role | Phone | + +------+ + | Justo Vazquez MD | PCP | | + +------+ + Reason for Visit +--------+ + | Reason | Comments | +--------+ + | Other | Fax info | +--------+ + Encounter Details +--------+ + + + + | Date | Type | Department | Care Team | Description | +--------+ + + + + | 12/09/ | Telephone | [facility] | Ava Carbajal | Other (Fax info ) | | 2016 | | [place] [facility] [address] | MD Melissa | | | | | [address] | | | | | | Mailcode: [place] | | | | | | for Health and | | | | | | [facility], [facility] [address] | | | | | | [place], [place] | | | | | | [address] | | | | | | [phone] | | | +--------+ + + + [...]
--- OUTSIDE RECORDS SUMMARY | ~2020-03-23 | XMS | Encounter Summary ---
Demographics + + + | Address | [address] | | | [place] [address] | + + + | Home Phone [...] Team Providers + +------+ + | Care Supply Chain Program Manager Name | Role | Phone [...] 2015 | | Center at [facility] [address] Junior Torres MD | Treatment Planning | | | | [address] | | | | | | Mailcode: Center | | | | | | for Health and | | | | | | [facility], [facility] [address] | | | | | | [place], [place] | | | | | | [address] | | | | | | [phone] | | | +--------+ + + + [...]
--- OUTSIDE RECORDS SUMMARY | ~2020-03-23 | XMS | Encounter Summary ---
Demographics + + + | Address | [address] | | | [place] [address] | + + + | Home Phone [...] Team Providers + +------+ + | Care Felt Finishing Supervisor Name | Role | Phone | + +------+ + | Allegra Gandhi | PCP | | + +------+ + Encounter Details +--------+ + + + + | Date | Type | Department | Care Team | Description | +--------+ + + + + | 02/13/ | Outside | UNKNOWN DEPARTMENT | Other, Faculty | | | 2011 | Records | [address] [facility] | [phone] | | | | | [address] | | | | | | [place], [place] | | | | | | [address] | | | +--------+ + + + [...]
--- OUTSIDE RECORDS SUMMARY | ~2020-03-23 | XMS | Encounter Summary ---
Demographics + + + | Address | [address] | | | [place] [address] | + + + | Home Phone [...] Team Providers + +------+ + | Care Automatic Dispenser Mechanic Name | Role | Phone | [...] Oliveira | | 2011 | IP | [address] | | House - Approved | | | | [place] Maldonado [place], | | | | | | [place] [address] | | | +--------+ + + + [...]
--- OUTSIDE RECORDS SUMMARY | ~2020-03-23 | XMS | Encounter Summary ---
Demographics + + + | Address | [address] | | | [place] [address] | + + + | Home Phone [...] Team Providers + +------+ + | Care Flute Grinder Name | Role | Phone | + +------+ + | Justo Vazquez MD | PCP | | + +------+ + Encounter Details +--------+ + + + + | Date | Type | Department | Care Team | Description | +--------+ + + + + | 01/02/ | Telephone | [facility] | Ilene Bright, | | | 2019 | | Pain Center at | ELECTRIC TRACK SWITCH MAINTAINER [address] | | | | | [facility] | [place], [place] | | | | | [address] | [address] | | | | | Mailcode: CH15P | [phone] | | | | | [facility] | | | | | | and Healing, | | | | | | | | | | | | Floor [place], [place] | | | | | | [address] | | | | | | [phone] | | | +--------+ + + + [...]
--- OUTSIDE RECORDS SUMMARY | ~2020-03-23 | XMS | Encounter Summary ---
Demographics + + + | Address | [address] | | | [place] [address] | + + + | Home Phone [...] Team Providers + +------+ + | Care Integration Director Name | Role | Phone | [...] 08/11/ | Documentati | KEVIN YANEZ at [facility] | Lab, Gi Procedure | Medical Records | | 2015 | on | [address] | | Review | | | | [address] Mailcode: | | | | | | [facility] | | | | | | Health and Healing, | | | | | | Building 2 | | | | | | [place], [place] | | | | | | [address] | | | | | | [phone] | | | +--------+ + + + [...]
--- OUTSIDE RECORDS SUMMARY | ~2020-03-23 | XMS | Encounter Summary ---
Demographics + + + | Address | [address] | | | [place] [address] | + + + | Home Phone [...] Team Providers + +------+ + | Care Desktop Publishing Specialist Name | Role | Phone | [...] located | + + + Consultation (Routine) +--------+--------+ [...] | | | | | location | Joel | [address] | | | | | Procedures | [place] | Joel [facility], | | | | | CONSULT TO | [address] | [place] | | | | | PAIN | | [address] | | | | | MANAGEMENT | | Phone: | | | | | | | [phone] | | | | | | | Fax: | | | | | | | [phone] | +--------+--------+ + + + + Encounter Details +--------+---------+ + + + | Date | Type | Department | Care Team | Description | +--------+---------+ + + + | 04/23/ | Office | Pain Center at [facility] | Alex Sanchez, | Complex regional | | 2019 | Visit | [address] | ,PhD [address] [facility] | pain syndrome type 1 | | | | Mailcode: CH15P | [facility] [address] | of left lower | | | | Center for Health | [place], [place] | extremity (Primary | | | | and Healing, | [address] | Dx); Other chronic | | | | Building | [phone] | pain ; S/P insertion | | | | Floor [facility] [place] | | of spinal cord | | | | [address] | | stimulator | | | | [phone] | | | +--------+---------+ + + + [...] the time to see us in the [facility]. It was great to s ee you. Below is a summary of the discussion that we had today: - I will provide you with a prescription for oxycodone to use only for your monthly pain fl garo. - We reviewed and signed an opioid agreement today. - Please visit the lab on the 1st floor of [facility] to provide a urine sample for a [...] findings and the plan of care as docbrady fox in our notes. Alex Sanchez MD,PhD [facility] signed by Alex Sanchez MD,PhD at [...] of physical activity Aleta Lam MD - 9 1:00 PM PDT [facility] Return Visit Date: 04/23/2019 Chief Complaint Patient presents with Pain in left leg from the knee downl Back pain where battery pack is located History of Present Illness: Tracie Farah is a 28 year old female, whose last appoi ntment at the [facility] [place] was December 22, 2018, for a clinic [...] symptoms. She notes that [facility] unable to provide her with ongoing pain prescriptions. She feels like she has started to feel more of her left leg pain due to the boone that [facility] has in place. She is looking into [...] - DRG Spinal cord stimulator trial with [employer] system (09/25/2018) with 30-40% im provement of typical pain with significant improvement in mobility and function - Left popliteal/sciatic nerve injection AND abdominal scar trigger point injection ( 018) - Spinal cord stimulator trial with [employer] system by Janak Riojas MD (08/02/2012) - Left L3 lumbar sympathetic block by Janak Riojas MD (03/01/2012) Opioid Risk Tool (ORT) 04/23/2019 UNHAIRING MACHINE OPERATOR Brief Pain Inventory: (ten= worst possible [...] Hemroidectomy Trial spinal cord stimulator leads 08/02/2012 [employer], Surgeon: Janak Riojas MD Cholecystectomy Appendectomy [...] History Social History Narrative Single. Goes to [employer] with a light load. Has been working at [employer], can' t work on [employer]. Has roommates. Allergies Allergen Reactions Morphine Anaphylaxis [...] GRAM-5.86 GRAM SOLUTION Take as directed by [facility]- 2 gallon bowel prep POLYETHYLENE [...] nausea Abdominal pain Abdominal scar neuroma [facility] CLINICAL PROTOCOL PATIENT (CLNPRO) - Implanted [...] and summary of old medical records (source: [employer]), as summarized in the body of the [...] We performed DRG SCS trial with the [employer] System on 09/25/2018 which provided her with [...] ago. She has not spoken with the [employer] representatives about this. I encouraged her to [...] Key. Aleta Rebollar MD PAIN C[facility] AT [facility] 15 FLOOR [address] [facility] Mail Code: Ch15[place] [address] do cumented in this encounter [...] LABORATORY | | Barbiturates >=200 ng/mL | SERVICES, CORE | | Benzodiazepine >=200 ng/mL Cocaine | [...] | + + + + + | [facility] | [address] | [place] [address] | | | SERVICES, CORE | GUILLERMO [...]
--- OUTSIDE RECORDS SUMMARY | ~2020-03-23 | XMS | Encounter Summary ---
Demographics + + + | Address | [address] | | | [place] [address] | + + + | Home Phone [...] Team Providers + +------+ + | Care Die Designer Apprentice Name | Role | Phone | + +------+ + | Justo Vazquez MD | PCP | | + +------+ + Encounter Details +--------+ + + + + | Date | Type | Department | Care Team | Description | +--------+ + + + + | 12/12/ | Telephone | [facility] | Alex Sanchez, | | | 2019 | | Pain Center at | ,PhD [address] | | | | | [facility] | [facility] [address] | | | | | [address] | [place], [place] | | | | | Mailcode: CH15P | [address] | | | | | [place] for [facility] | [phone] | | | | | and Healing, | | | | | | | | | | | | Floor [place], [place] | | | | | | [address] | | | | | | [phone] | | | +--------+ + + + [...]
--- OUTSIDE RECORDS SUMMARY | ~2020-03-23 | XMS | Encounter Summary ---
Demographics + + + | Address | [address] | | | [place] [address] | + + + | Home Phone [...] Team Providers + +------+ + | Care Admitted Attorneys Name | Role | Phone | + [...] Pharmacy | | | | | | [address] | | | | | | Loop [place], [place] | | | | | | [address] | | | | | | [phone] | | | +--------+ + + + [...]
--- OUTSIDE RECORDS SUMMARY | ~2020-03-23 | XMS | Encounter Summary ---
Demographics + + + | Address | [address] | | | [place] [address] | + + + | Home Phone [...] Team Providers + +------+ + | Care Night Filler Name | Role | Phone | + +------+ + | Justo Vazquez MD | PCP | | + +------+ + Encounter Details +--------+ + + + + | Date | Type | Department | Care Team | Description | +--------+ + + + + | 07/26/ | MyChart | [facility] Comprehensive | Ilene Bright, | Labs | | 2017 | Encounter | Pain Center at | LINUX SYSTEM ADMIN [address] | | | | | [facility] | [place], [place] | | | | | [address] | [address] | | | | | Mailcode: CH15 | [phone] | | | | | [facility] | | | | | | and Healing, | | | | | | | | | | | | Floor [place], [place] | | | | | | [address] | | | | | | [phone] | | | +--------+ + + + [...]
--- OUTSIDE RECORDS SUMMARY | ~2020-03-23 | XMS | Encounter Summary ---
Demographics + + + | Address | [address] | | | [place] [address] | + + + | Home Phone [...] Providers + +------+ + | Care Residential Green Building Designer Name | Role | Phone | [...] + + | 09/30/ | Telephone | [facility] Ilene | Ilene Bright, | Phone communication | | 2017 | | Pain Center at | HOSPITALIST MEDICAL DIRECTOR [address] | | | | | [facility] | [place], [place] | | | | | [address] | [address] | | | | | Mailcode: CH15 | [phone] | | | | | [facility] | | | | | | and Healing, | | | | | | Building | | | | | | Floor [place], [place] | | | | | | [address] | | | | | | [phone] | | | +--------+ + + + [...]
--- OUTSIDE RECORDS SUMMARY | ~2020-03-23 | XMS | Encounter Summary ---
Demographics + + + | Address | [address] | | | [place] [address] | + + + | Home Phone [...] Team Providers + +------+ + | Care Egg Caser Name | Role | Phone | + [...] | | | | | regional | [address] | Mailcode: | | | | | pain | Mailstop | CH15P Center | | | | | syndrome), | [id number] | for Health | | | | | lower limb | [place], [place] | and Healing, | | | | | Gait | [address] | Building 1, | | | | | disturbance | Phone: | 15th Floor | | | | | Muscle pain | [phone] | [place], [place] | | | | | Procedures | Fax: | [address] | | | | | CONSULT TO | [phone] | Phone: | | | | | PAIN CENTER | | [phone] | | | | | | | Fax: | | | | | | | [phone] | +--------+--------+ + + + + Encounter Details +--------+---------+ + + + | Date | Type | Department | Care Team | Description | +--------+---------+ + + + | 02/28/ | Office | Pain Center at [facility] | Shelia Feldman, PhD | Unspecified | | 2011 | Visit | [address] | | adjustment reaction | | | | Mailcode: CH15P | | (Primary Dx); Sleep | | | | [facility] | | disturbance, | | | | and Healing, | | unspecified | | | | Building | | | | | | Floor [place], [place] | | | | | | [address] | | | | | | [phone] | | | +--------+---------+ + + + [...] [facility] Name: Tracie Farah MR#: [id number] Date of : 1990 Date: February 29, [...] & Psychiatric History: Tracie Farah lives in [place] in a shared apartment space. She has struggled wi th CRPS for at least 5 years; original injury to her foot was in 2001. In summer 2010 she h ad inpt pain tx at [facility] with limited fci benefit. Recent flare; she arrived using crutches [...] She learned some pain management techniques at [facility], mainly DB and PMR, which she does [...] Travel is a barrier; she lives in [place] DSM-IV Diagnoses/Impressions: Cat Spring I: 1. 309.9 Unspecified Adjustment Reaction 2. 780.50 Sleep Disturbance [place] II: Deferred. Cat [place] III: Patient Active Problem List Diagnoses CRPS (complex regional pain syndrome), lower limb Gait disturbance Muscle pain Adjustment reaction Cat [place] IV: CRPS pain, pain related debility;difficulty attending class, working; family stres s; stalker ex-bf Cat [place] V: Global Assessment of Functioning = 75 [...] me should questions arise. SHELIA FELDMAN, PHD Deputy District Customs Director Licensed Clinical Psychologist [facility] Department of Anesthesiology & Perioperative Medicine [facility] [address] [place] [address] documented in this enc ounter Plan of Treatment Not on filedocumented as of this encounter Visit Diagnoses + + | Diagnosis | + + | Unspecified adjustment reaction - Primary | + + | Sleep disturbance, unspecified | + + documented in this encounter
--- OUTSIDE RECORDS SUMMARY | ~2020-03-23 | XMS | Encounter Summary ---
Demographics + + + | Address | [address] | | | [place] [address] | + + + | Home Phone [...] Team Providers + +------+ + | Care Broach Trouble Shooter Name | Role | Phone | + [...] | | | | | Giuliana Maldonado [place], | | | | | | [place] [address] | | | +--------+ + + + [...]
--- OUTSIDE RECORDS SUMMARY | ~2020-03-23 | XMS | Encounter Summary ---
Demographics + + + | Address | [address] | | | [place] [address] | + + + | Home Phone [...] Providers + +------+ + | Care Registered Appraiser Name | Role | Phone | + [...] | | 2015 | | Center at [facility] [address] MD | Treatment Planning | | | | [address] | | | | | | Mailcode: Center | | | | | | for Health and | | | | | | [facility] 2 | | | | | | [place], [place] | | | | | | [address] | | | | | | [phone] | | | +--------+ + + + [...]
--- OUTSIDE RECORDS SUMMARY | ~2020-03-23 | XMS | Encounter Summary ---
Demographics + + + | Address | [address] | | | [place] [address] | + + + | Home Phone [...] Team Providers + +------+ + | Care Environmental Monitoring Specialist Name | Role | Phone | + +------+ + | Justo Vazquez MD | PCP | | + +------+ + Encounter Details +--------+ + + + + | Date | Type | Department | Care Team | Description | +--------+ + + + + | 03/23/ | MyChart | [facility] | Ilene Bright, | Welcome | | 2017 | Encounter | Pain Center at | TELETYPEWRITER OPERATOR [address] | | | | | [facility] | [place], [place] | | | | | [address] | [address] | | | | | Mailcode: CH15 | [phone] | | | | | [place] for [facility] | | | | | | and Healing, | | | | | | | | | | | | Floor [place], [place] | | | | | | [address] | | | | | | [phone] | | | +--------+ + + + [...]
--- OUTSIDE RECORDS SUMMARY | ~2020-03-23 | XMS | Encounter Summary ---
Demographics + + + | Address | [address] | | | [place] [address] | + + + | Home Phone [...] Team Providers + +------+ + | Care Implementation Coordinator Name | Role | Phone | [...] | | Pain | Complex | Ilene, INDEX EDITOR | Catriona M, | | | | Management | regional | [address] | PSY D [address] | | | | | pain | [address] | [address] | | | | | syndrome | [place], [place] | [place], [place] | | | | | type 1 of | [address] | [address] Phone: | | | | | left lower | Phone: | [phone] | | | | | extremity | [phone] | Fax: | | | | | Intractable | Fax: | [phone] | | | | | cyclical | [phone] | | | | | | vomiting [...] | | | | | | | AR | | | | | | | PSYCHIATRIC | | | | | | | DIAGNOSTIC | | | | | | | EVAL, NO MED | | | | | | | SVCS AR | | | | | | | PSYCH TSTNG | | | | | | | PSYCH/PHYS | | | | | | | AR | | | | | | | PSYCHOTHERAP | | | | | | | Y, 45 MIN | | | +--------+---------+ + + + + Encounter Details +--------+---------+ + + + | Date | Type | Department | Care Team | Description | +--------+---------+ + + + | 10/11/ | Office | Pain Center at [facility] | Jamel Bravo, | 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 [address] | with mixed anxiety | | | | Mailcode: [facility] | [place], [place] | and depressed mood | | | | [place] for [facility] | [address] | (Primary Dx); | | | | and Healing, | [phone] | Complex regional | | | | | | pain syndrome type 1 | | | | Floor [place], [place] | | of left lower | | | | [address] | | extremity; Abdominal | | | | [phone] | | pain, unspecified | | | [...] Jamel Bravo, PhD - 10/11/2017 10:50 AM [facility] Initial Psychologica l Evaluation IDENTIFYING INFORMATION: Tracie Farah is a 27 y.o. female Date of : 1990 Consulting Psychologist: JAMEL BRAVO PHD Consultation Date: 10/11/2017 Referring Provider: Ilene Bright Identifying Information: Tracie Farah is a 27 y.o. female who lives with her paren naeem in [place], [place]. The patient was referred for pain [...] by physician. Concentration is 150mg/mL. 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 For enjoyment the patient watches TV, reads, [...] time I spent was approximately 50 minutes kdhy-vz-pego with the patient and approxima tely 1 hour 40 minutes of xth-pyyq-jt-face testing, interpreting and synthesizing results. Jamel Bravo, PhD PAIN C[facility] AT [facility] 15TH FLOOR [address] [facility] Mail Code: Ch15p [place] [address] documented in this en counter [...]
--- OUTSIDE RECORDS SUMMARY | ~2020-03-23 | XMS | Encounter Summary ---
Demographics + + + | Address | [address] | | | [place] [address] | + + + | Home Phone [...] Team Providers + +------+ + | Care Marking Devices Assembler Name | Role | Phone | [...] | Diagnoses | Beulah | Edu Pt Wind Energy Technician | | | | Therapy | CRPS | Janak Martinez MD | [facility] [address] | | | | | (complex | [address] | | | | | regional | [address] | Mailcode: | | | | | pain | Mailstop | CH3P Center | | | | | syndrome), | [address] | for Health | | | | | lower limb | [place], [place] | and Healing, | | | | | Gait | [address] | Building 1 | | | | | disturbance | Phone: | [place], [place] | | | | | Muscle pain | [phone] | [address] | | | | | Procedures | Fax: | Phone: | | | | | PHYSICAL | [phone] | [phone] | | | | | THERAPY | [...] | | | | [facility] | [place] [address] | syndrome), lower | | | | [address] | [phone] | limb (Primary Dx) | | | | Mailcode: CH3P | | | | | | [facility] | | | | | | and Healing, | | | | | | Building [address] | | | | | | Floor [place], [place] | | | | | | [address] | | | | | | [phone] | | | +--------+---------+ + + + [...] encounter Patient Instructions Patient Instructions Guillermo Sanon I PT - 05/03/2012 3:14 PM PDT documented in this encounter Progress Notes Guillermo Sanon I, PT - 05/03/2012 3:08 PM PDTFormatting of this note might be different f rom the original. [id number] BRODY FARAH Date of : 1990 Start of care: 02/14/2012 Date of onset: 02/14/2012 Referring/Attending Practitioner: Janak Riojas MD . Primary/Referral Diagnosis/ICD-9: 355.71B CRPS (complex regional pain syndrome), lower limb Insurance: Payor: [facility] [employer] [facility] Plan: BCBS OUT OF STATE Product Type: PP O Service period from: 02/14/2012 to: 08/12/2012 Number visits used/authorized: 12/26 [facility] PHYSICAL THERAPY PROGRESS NOTE SUBJECTIVE: Age: 21 y.o. Sex: female Chief complaint: No chief complaint on file. 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 She is doing much better ov angelika, possibly because she finished school and so has less stress. She stopped using crutch es in early April (18 days ago) which is less stressful. Now she is working at [employer] 2-3 hours per week, and spends a [...] sometimes pain meds. Social History: lives in [place], 22 years old, not working currently, [...] or concerns about therapy: she lives in [place]. She is r equesting family members [...] any change in their status. [facility]on [facility] Outpatient Rehabilitation Services Mailcode: Ch3p [address] [facility], 1st Floor [facility] [address] documented in this encounter Plan of Treatment Not on filedocumented as of this encounter Procedures + +--------+ + + + | Procedure Name | Priori | Date/Time | Associated Diagnosis | Comments | | | ty | | | | + +--------+ + + + | [place] THERAPE[facility]IC | Routin | 05/03/2012 | CRPS [...]
--- OUTSIDE RECORDS SUMMARY | ~2020-03-23 | XMS | Encounter Summary ---
Demographics + + + | Address | [address] | | | [place] [address] | + + + | Home Phone [...] Team Providers + +------+ + | Care Audio Operator Name | Role | Phone | [...] | CRPS | Janak Martinez MD | [facility] [address] | | | | | (complex | [address] | Pavilion | | | | | regional | [address] | [address] | | | | | pain | Mailstop | [place] [address], | | | | | syndrome), | [address] | Basement | | | | | lower limb | [place], [place] | [place], [place] | | | | | Procedures | [address] | [address] | | | | | [place] BONE &/[place] | Phone: | Phone: | | | | | JOINT | [phone] | [phone] | | | | | IMAGING 3 | Fax: | Fax: | | | | | PHASE | [phone] | [phone] | +--------+--------+ + + + + Encounter Details +--------+ + + + + | Date | Type | Department | Care Team | Description | +--------+ + + + + | 02/13/ | Hospital | Nuclear Medicine | | | | 2011 | Encounter | at [facility] [address] | | | | | | [address] | | | | | | [place], | | | | | | [place], | | | | | | [place] [address] | | | | | | [phone] | | | +--------+ + + + [...]
--- OUTSIDE RECORDS SUMMARY | ~2020-03-23 | XMS | Encounter Summary ---
Demographics + + + | Address | [address] | | | [place] [address] | + + + | Home Phone [...] Providers + +------+ + | Care Corporate Development Officer Name | Role | Phone | + +------+ + | Justo Vazquez MD | PCP | | + +------+ + Encounter Details +--------+ + + + + | Date | Type | Department | Care Team | Description | +--------+ + + + + | 03/12/ | Heel Packer | [facility] Comprehensive | Alex Sanchez, | Complex regional | | 2019 | | Pain Center at | ,PhD [address] [facility] | pain syndrome type 1 | | | | [facility] | [address] | of left lower | | | | [address] | [place], [place] | extremity; S/P | | | | Mailcode: CH15P | [address] | insertion of spinal | | | | [place] for [facility] | [phone] | cord stimulator | | | | and Healing, | | | | | | Building | | | | | | Floor [place], [place] | | | | | | [address] | | | | | | [phone] | | | +--------+ + + + [...]
--- OUTSIDE RECORDS SUMMARY | ~2020-03-23 | XMS | Encounter Summary ---
Demographics + + + | Address | [address] | | | [place] [address] | + + + | Home Phone [...] Team Providers + +------+ + | Care Checkout Supervisor Name | Role | Phone | [...] Medical Records | | 2017 | | [place] at [facility] [address] | MD Melissa | Review | | | | [address] | | | | | | Mailcode: [place] | | | | | | [facility] and | | | | | | [facility] 2 | | | | | | [place], [place] | | | | | | [address] | | | | | | [phone] | | | +--------+ + + + [...]
--- OUTSIDE RECORDS SUMMARY | ~2020-03-23 | XMS | Encounter Summary ---
Demographics + + + | Address | [address] | | | [place] [address] | + + + | Home Phone [...] Team Providers + +------+ + | Care Payroll And Benefits Manager Name | Role | Phone | + +------+ + | Justo Vazquez MD | PCP | | + +------+ + Encounter Details +--------+ + + + + | Date | Type | Department | Care Team | Description | +--------+ + + + + | 03/17/ | MyChart | [facility] [place] | Yun Frey NP | Welcome | | 2017 | Encounter | Pain Center at | [address] | | | | | [facility] | [place], [place] | | | | | [address] | [address] | | | | | Mailcode: CH15P | [phone] | | | | | [place] for [facility] | | | | | | and Healing, | | | | | | | | | | | | Floor [place], [place] | | | | | | [address] | | | | | | [phone] | | | +--------+ + + + [...]
--- OUTSIDE RECORDS SUMMARY | ~2020-03-23 | XMS | Encounter Summary ---
Demographics + + + | Address | [address] | | | [place] [address] | + + + | Home Phone [...] Team Providers + +------+ + | Care Binding Printer Name | Role | Phone | + +------+ + | Justo Vazquez MD | PCP | | + +------+ + Encounter Details +--------+ + + + + | Date | Type | Department | Care Team | Description | +--------+ + + + + | 10/09/ | Telephone | [facility] | Alex Sanchez, | | | 2018 | | Pain Center at | ,PhD [address] | | | | | [facility] | [facility] [address] | | | | | [address] | [facility] [place] | | | | | Mailcode: CH15P | [address] | | | | | [place] for [facility] | [phone] | | | | | and Healing, | | | | | | | | | | | | Floor [place], [place] | | | | | | [address] | | | | | | [phone] | | | +--------+ + + + [...]
--- OUTSIDE RECORDS SUMMARY | ~2020-03-23 | XMS | Encounter Summary ---
Demographics + + + | Address | [address] | | | [place] [address] | + + + | Home Phone [...] Team Providers + +------+ + | Care Cushion Sewer Name | Role | Phone | + [...] | | | | | regional | [address] | Mailcode: | | | | | pain | Mailstop | [facility] | | | | | syndrome), | [phone] | for Health | | | | | lower limb | [place] | and Healing, | | | | | Gait | [address] | Building 1, | | | | | disturbance | Phone: | 15th Floor | | | | | Muscle pain | [phone] | [place], [place] | | | | | Procedures | Fax: | [address] | | | | | CONSULT TO | [phone] | Phone: | | | | | PAIN CENTER | | [phone] | | | | | | | Fax: | | | | | | | [phone] | +--------+--------+ + + + + Encounter Details +--------+---------+ + + + | Date | Type | Department | Care Team | Description | +--------+---------+ + + + | 02/28/ | Office | Pain Center at [facility] | Shelia Feldman, PhD | Unspecified | | 2011 | Visit | [address] | | adjustment reaction | | | | Mailcode: CH15P | | (Primary Dx); Sleep | | | | [facility] | | disturbance, | | | | and Healing, | | unspecified | | | | Building | | | | | | Floor [place], [place] | | | | | | [address] | | | | | | [phone] | | | +--------+---------+ + + + [...] [facility] Name: Tracie Farah MR#: [id number] Date of : 1990 Date: February 29, [...] & Psychiatric History: Tracie Farah lives in [place] in a shared apartment space. She has struggled wi th CRPS for at least 5 years; original injury to her foot was in 2001. In summer 2010 she h ad inpt pain tx at [facility] with limited correction benefit. Recent flare; she arrived using crutches [...] She learned some pain management techniques at [facility], mainly DB and PMR, which [...] Travel is a barrier; she lives in [place] DSM-IV Diagnoses/Impressions: [place] I: 1. 309.9 Unspecified Adjustment Reaction 2. 780.50 Sleep Disturbance [place] II: Deferred. [place] III: Patient Active Problem List Diagnoses CRPS (complex regional pain syndrome), lower limb Gait disturbance Muscle pain Adjustment reaction [place] IV: CRPS pain, pain related debility;difficulty attending class, working; family stres s; stalker ex-bf [place] V: Global Assessment of Functioning = 75 [...] me should questions arise. SHELIA FELDMAN, PHD Financial Foundations Representative Licensed Clinical Psychologist [facility] Department of Anesthesiology & Perioperative Medicine [facility] [address] [place] [address] documented in this enc ounter Plan of Treatment Not on filedocumented as of this encounter Visit Diagnoses + + | Diagnosis | + + | Unspecified adjustment reaction - Primary | + + | Sleep disturbance, unspecified | + + documented in this encounter
--- OUTSIDE RECORDS SUMMARY | ~2020-03-23 | XMS | Encounter Summary ---
Demographics + + + | Address | [address] | | | [place] [address] | + + + | Home Phone [...] Team Providers + +------+ + | Care Supervisory Forester Name | Role | Phone | + [...] | Abstract | [facility] | Kenny Gapsar MD | Medical Records | | 2017 | | [place] [address] | | Review | | | | [address] | | | | | | Mailcode: [place] | | | | | | [facility] and | | | | | | [facility] 2 | | | | | | [place], [place] | | | | | | [address] | | | | | | [phone] | | | +--------+ + + + [...]
--- OUTSIDE RECORDS SUMMARY | ~2020-03-23 | XMS | Encounter Summary ---
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 Surgery check-in location: [facility] Day Stay - [place] for Health and Healing, 4th floor Surgery Check in Time: The [...] it is after office hours, call the [facility] slotter operator at [phone] and ask them to page him or h er. documented in this encounter Progress Notes Catie Smart NP - 11/27/2018 2:05 PM PST PREOPERATIVE CONSULT NOTE Author: Catie Smart NP Referring Physician: Alex Sanchez MD Primary Care Provider: Justo Vazquez MD Reason for Consult: Preoperative evaluation and risk assessment Proposed Procedure/Date: implant SCS; 12/05/2018 Proposed Procedure Location: [facility] HISTORY OF PRESENT ILLNESS: Tracie Farah is [...] renal failure no electrolyte abnormalities no dialysis Urology/Personal Care Assistant: Interstitial cystitis LMP: irreg bleeding, ~11/14/2018, [...] oral recon soln Take as directed by [facility] [employer] [facility]- 2 gallon bowel prep polyethylene glycol [...] Trial spinal cord stimulator leads 08/02/2012 [facility], Surgeon: Janak Riojas MD Cholecystectomy Appendectomy [...] a lso currently scheduled at [facility] [place] and is meeting inclusion criteria for [...] to this patient's care. Catie Smart NP [facility] PBB PREOPERATIVE MEDICINE CLINIC AT [facility] 4TH FLOOR [address] [facility] [address] I advised the patient [...]
--- OUTSIDE RECORDS SUMMARY | ~2020-03-23 | XMS | Encounter Summary ---
Demographics + + + | Address | [address] | | | [place] [address] | + + + | Home Phone [...] Providers + +------+ + | Care Jig Filler Name | Role | Phone | [...] | | Pain | Complex | [place], MARTIAL ARTS INSTRUCTOR | Hanna M, | | | | Management | regional | [address] | PS[address] | | | | | pain | [address] | [address] | | | | | syndrome | [place], [place] | [place], [place] | | | | | type 1 of | [address] | [address] Phone: | | | | | left lower | Phone: | [phone] | | | | | extremity | [phone] | Fax: | | | | | Intractable | Fax: | [phone] | | | | | cyclical | [phone] | | | | | | vomiting [...] | | | | | | | [place] | | | | | | | PSYCHIATRIC | | | | | | | DIAGNOSTIC | | | | | | | EVAL, NO MED | | | | | | | SVCS [place] | | | | | | | PSYCH TSTNG | | | | | | | PSYCH/PHYS | | | | | | | [place] | | | | | | [...] Pain Medicine | Diagnoses | Chasity, | 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 Chh1 | | | | / Pain | Abdominal | MD Kenny | [address] | | | | Management | pain, | [address] | Ave | | | | | unspecified | [address] | Mailcode: | | | | | location | Rd | [facility] | | | | | Procedures | [place], [place] | for Health | | | | | CONSULT TO | [address] | and Healing, | | | | | PAIN | | Building | | | | | MANAGEMENT | | 1,15th Floor | | | | | | | [place], [place] | | | | | | | [address] | | | | | | | Phone: | | | | | | | [phone] | | | | | | | Fax: | | | | | | | [phone] | +--------+--------+ + + + + Encounter Details +--------+---------+ + + + | Date | Type | Department | Care Team | Description | +--------+---------+ + + + | 04/25/ | Office | [facility] Comprehensive | Ilene Bright, | Abdominal pain, | | 2017 | Visit | Pain Center at | MARTIAL ARTS INSTRUCTOR [address] | unspecified location | | | | [facility] | [place], [place] | (Primary Dx); | | | | [address] | [address] | Complex regional | | | | Mailcode: CH15P | [phone] | pain syndrome type 1 | | | | [place] for [facility] | | of left lower | | | | and Healing, | | extremity; | | | | | | Intractable cyclical | | | | Floor [place], [place] | | vomiting with | | | | [address] | | nausea; | | | | [phone] | | Constipation, | | | | [...] in this encounter Patient Instructions Patient Instructions Deangelo IleneTERESA - 04/25/2017 1:35 PM PDTKelly, Nice to [...] Freddie Guadalupe MD [email or web address] Ilene Childs DNP, TERESA-C Adult [facility] [address] [place] [address] documented in this encounter Progress Notes Ilene Bright FNP - 04/25/2017 1:35 PM PDTFormatting of this note might be different fr om the original. Date: 04/25/2017 was referred for pain management consultation by Kenny Gaspar MD [address] [place] [id number] Reason for consult: abdominal pain Chief Complaint Patient presents with Abdominal pain Back pain History of Present Illness: Tracie Farah is a 26 year old female with a history of depression, complex regional pain syndrome (left lower extremity) for this she follows with a neurologist at [facility] in [facility]. She has been stable on her current [...] (works better) Just started her on Celebrex (half-way option) Intranasal ketamine Lamotrigine Memantine Ibuprofen Cymbalta 20 mg BID Cyclobenzaprine Her nonmedication treatment has not included acupuncture, etc due to limited income. She feels that the most effective treatments include: medication (toradol). lives in [place], [place] alone and with her children. She receives disability. does not have specific goals for today's appointment. 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 Goes to [employer] with a light load. Has been working at [employer], can' t work on [employer]. Has roommates. Allergies Allergen Reactions Morphine Anaphylaxis [...] by physician. Concentration is 150mg/mL. Compounded by [email or web address] ( [phone]) LAMOTRIGINE 200 MG TABLET Take 1 tablet [...] GRAM SOLUTION Take as directed by [facility]- 2 gallon bowel prep POLYETHYLENE GLYCOL 3350 17 GRAM/DOSE ORAL POWDER Take 17 g by mouth once daily. PROMETHAZINE 12.5 MG TABLET Take 12.5 mg by mouth four times daily as needed for nausea/vom iting. SUCRALFATE 1 GRAM TABLET Take 1 g by mouth four times daily. Radiology/Diagnostic Tests: MR ENTEROGRAPHY ABDOMEN AND PELVIS WWO CONTRAST Order: [id number] Performed: 01/31/2017 4:34 PM Status: Final result [...] 3:50 PM X-RAY ABDOMEN 1 VIEW Order: [id number] Performed: 03/19/2017 6:52 AM Status: Final result [...] and summary of old medical records (source: [employer]), as summarized in the body of the [...] be perceived as such. As mentioned above, Traice meets the criteria for Fibromyalgia. The mainstay [...] an effective dose), possible opioid-sparing effects (Stevie Torres. et al.C cloudswave, (8):1655-70, 2007) and evidence that it can work when other medication s including gabapentin have failed. (Beulah CLEMONS, et al. Pain Medicine. 9(8):1202-8, 2008; Mel CLEMONS, et al. Open Rheumatol J. 2010; 4: [...] MD [email or web address] Central sensitization Ilene Childs DNP, MARTIAL ARTS INSTRUCTOR-C [facility] [address] [place] [address] Display Progress Note in MyChart: No documented [...]
--- OUTSIDE RECORDS SUMMARY | ~2020-03-23 | XMS | Encounter Summary ---
Demographics + + + | Address | [address] | | | [place] [address] | + + + | Home Phone [...] Team Providers + +------+ + | Care Discovery Guide Name | Role | Phone | + [...] 2016 | | Pain Center at | ENAMEL SHADER [address] | | | | | [facility] | [place], [place] | | | | | [address] | [address] | | | | | Mailcode: CH15P | [phone] | | | | | [facility] | | | | | | joana Mack, | | | | | | Building | | | | | | [place], [place] | | | | | | [address] | | | | | | [phone] | | | +--------+ + + + [...]
--- OUTSIDE RECORDS SUMMARY | ~2020-03-23 | XMS | Encounter Summary ---
Demographics + + + | Address | [address] | | | [place] [address] | + + + | Home Phone [...] Team Providers + +------+ + | Care Teleprinter Name | Role | Phone | + +------+ + | Justo Vazquez MD | PCP | | + +------+ + Encounter Details +--------+ + + + + | Date | Type | Department | Care Team | Description | +--------+ + + + + | 01/12/ | Telephone | Dig[facility]ive Health | Kenny Gaspar MD | | | 2016 | | [place] at [facility] [address] | | | | | | [address] | | | | | | Mailcode: [place] | | | | | | for Health and | | | | | | Healing, Building 2 | | | | | | [place], [place] | | | | | | [address] | | | | | | [phone] | | | +--------+ + + + [...]
--- OUTSIDE RECORDS SUMMARY | ~2020-03-23 | XMS | Encounter Summary ---
Demographics + + + | Address | [address] | | | [place] [address] | + + + | Home Phone [...] Team Providers + +------+ + | Care Fourchette Sewer Name | Role | Phone | + +------+ + | Justo Vazquez MD | PCP | | + +------+ + Encounter Details +--------+ + + + + | Date | Type | Department | Care Team | Description | +--------+ + + + + | 12/05/ | Procedure | [facility] | | | | 2019 | Pass | [place] [facility] | | | | | | and Healing Surgery | | | | | | Center Admitting | | | | | | Desk Located on the | | | | | | 4th floor [address] | | | | | | [address] [place], | | | | | | [place] [address] | | | +--------+ + + + [...]
--- OUTSIDE RECORDS SUMMARY | ~2020-03-23 | XMS | Encounter Summary ---
Demographics + + + | Address | [address] | | | [place] [address] | + + + | Home Phone | | + + + | Preferred Language | Unknown | + + + | Marital Status | Single | + + + | Jainism Affiliation | 1073 | + + + | Race | Unknown | + + + | Ethnic Group | Unknown | + + + Author + + + | Author | [facility] | | | and [place] | + + + | Organization | [facility] | | | and [place] [...] [place] | | | | | [address] | | + + + + + | Bryant Farah | ECON | Unknown | | + + + + + Care Team Providers + +------+ + | Care Die Barber Name | Role | Phone | + +------+ + PCP | Unavailable | + +------+ + Encounter Details +--------+ + + + + | Date | Type | Department | Care Team | Description | +--------+ + + + + | 03/16/ | Hospital | [facility] | Conversion | Back pain | | 2013 | Encounter | CONVERSION [address] | Transaction, | | | | | [address] | Provider Unknown | | | | | [place], [place] | [phone] | | | | | [address] | | | | | | [phone] | | | +--------+ + + + [...]
--- OUTSIDE RECORDS SUMMARY | ~2020-03-23 | XMS | Encounter Summary ---
Demographics + + + | Address | [address] | | | [place] [address] | + + + | Home Phone [...] Providers + +------+ + | Care Photograph Editor Name | Role | Phone | + [...] | | | | | constipation | [facility] [place] | for Health | | | | | type | [address] | and Healing, | | | | | Procedures | | Building 2 | | | | | CONSULT TO | | [place], [place] | | | | | GI PROCEDURE | | [address] | | | | | UNIT: | | Phone: | | | | | ANORECTAL | | [phone] | | | | | MANOMETRY | | Fax: | | | | | RI ANAL | | [phone] | | | | | PRESSURE | | | | | | | RECORD | | | +--------+--------+ + + + + Encounter Details +--------+ + + + + | Date | Type | Department | Care Team | Description | +--------+ + + + + | 09/14/ | Hospital | [facility] | Nurse, Gip [address] | | | 2016 | Encounter | [place] [address] | [facility] | | | | | [address] Mailcode: | Road [facility] [place] | | | | | [address] for | [address] | | | | | Health and Healing, | | | | | | Building 2 | | | | | | [place], [place] | | | | | | [address] | | | | | | [phone] | | | +--------+ + + + [...]
--- OUTSIDE RECORDS SUMMARY | ~2020-03-23 | XMS | Encounter Summary ---
Demographics + + + | Address | [address] | | | [place] [address] | + + + | Home Phone [...] Team Providers + +------+ + | Care Veneer Slicing Machine Operator Name | Role | Phone [...] [address] [place] | | | | | [facility] | [facility], | | | | | [address] | [place] [address] | | | | | Mailcode: CH15P | [phone] | | | | | [facility] | | | | | | and Healing, | | | | | | Building | | | | | | Floor [place], [place] | | | | | | [address] | | | | | | [phone] | | | +--------+ + + + [...]
--- OUTSIDE RECORDS SUMMARY | ~2020-03-23 | XMS | Encounter Summary ---
Demographics + + + | Address | [address] | | | [place] [address] | + + + | Home Phone [...] Team Providers + +------+ + | Care Forestry Worker Name | Role | Phone | [...] | | 2016 | | Center at [facility] [address] | | severe stomach Pain) | | | | [address] | | | | | | Mailcode: [place] | | | | | | for Health and | | | | | | Healing, Building 2 | | | | | | [place], [place] | | | | | | [address] | | | | | | [phone] | | | +--------+ + + + [...]
--- OUTSIDE RECORDS SUMMARY | ~2020-03-23 | XMS | Encounter Summary ---
Demographics + + + | Address | [address] | | | [place] [address] | + + + | Home Phone [...] Team Providers + +------+ + | Care Rheostat Assembler Name | Role | Phone | + +------+ + | Justo Vazquez MD | PCP | | + +------+ + Encounter Details +--------+ + + + + | Date | Type | Department | Care Team | Description | +--------+ + + + + | 04/23/ | Anesthesia | [facility] at [facility] | Aleta Rebollar MD [address] | | | 2019 | Event | [address] | [address] | | | | | Mailcode: CH15P | [facility] [place] | | | | | [place] for [facility] | [address] | | | | | and Healing, | [phone] | | | | | | | | | | | Floor [place], [place] | | | | | | [address] | | | | | | [phone] | | | +--------+ + + + [...]
--- OUTSIDE RECORDS SUMMARY | ~2020-03-23 | XMS | Encounter Summary ---
Demographics + + + | Address | [address] | | | [place] [address] | + + + | Home Phone [...] Providers + +------+ + | Care Social Insurance Analyst Name | Role | Phone | [...] | | Pain Center at | ,PhD [address] | denied) | | | | [facility] | [facility] | | | | | [address] | [place], [place] | | | | | Mailcode: CH15P | [address] | | | | | [facility] | [phone] | | | | | and Martina, | | | | | | Building | | | | | | Floor [place], [place] | | | | | | [address] | | | | | | [phone] | | | +--------+ + + + [...]
--- OUTSIDE RECORDS SUMMARY | ~2020-03-23 | XMS | Encounter Summary ---
Demographics + + + | Address | [address] | | | [place] [address] | + + + | Home Phone [...] Team Providers + +------+ + | Care Road Commissioner Name | Role | Phone | + +------+ + | Justo Vazquez MD | PCP | | + +------+ + Encounter Details +--------+------+ + + + | Date | Type | Department | Care Team | Description | +--------+------+ + + + | 04/23/ | Lab | Laboratory at [facility] | | Other chronic pain ; | | 2018 | | [address] | | Complex regional | | | | [place], [place] | | pain syndrome type 1 | | | | [address] | | of left lower | | | | [phone] | | extremity | +--------+------+ + + + Social History [...] | + + + + + | [facility] | [address] | [place] [address] | | | SERVICES, LILLIAN | GUILLERMO ETIENNE | | | + + + + + documented in this encounter Visit Diagnoses + + | Diagnosis | + + | Other chronic pain Other chronic pain | + + | Complex regional pain syndrome type 1 of left lower extremity | + + documented in this encounter"
--- OUTSIDE RECORDS SUMMARY | ~2020-03-23 | XMS | Encounter Summary ---
Demographics + + + | Address | [address] | | | [place] [address] | + + + | Home Phone | | + + + | Preferred Language | Unknown | + + + | Marital Status | Single | + + + | Latter-Day Affiliation | 1073 | + + + | Race | Unknown | + + + | Ethnic Group | Unknown | + + + Author + + + | Author | [facility] | | | and [place] | + + + | Organization | [facility] | | | and [place] [...] [place] | | | | | [address] | | + + + + + | Bryant Farah | ECON | Unknown | | + + + + + Care Team Providers + +------+ + | Care Roll Operator Name | Role | Phone | + +------+ + PCP | Unavailable | + +------+ + Encounter Details +--------+ + + + + | Date | Type | Department | Care Team | Description | +--------+ + + + + | 03/20/ | Hospital | [facility] | Ulices Scott, | 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 T his also failed to provide [...] stable condition. She will follow-up with [facility] for continued medical management. She [...] 03/22/131929 Date of Service: 03/22/131920 Status: Signed Residential Manager: Ava Carolina RN (Registered Nurse) Patient tolerated [...] 03/22/131854 Date of Service: 03/22/131854 Status: Signed Residential Manager: Ava Carolina RN (Registered Nurse) Discharge teaching [...] 03/22/13656 Date of Service: 03/22/13651 Status: Signed Residential Manager: Ulices Scott MD (Physician) [facility] Service: Interventional Pain Management Pre-Operative History & [...] Author: JUSTIN Ospina Service: (none) Author Type: Nurse Research Filed: 03/21/13 1036 Date of Service: 03/21/13 103 Status: Addendum Residential Manager: JUSTIN Ospina (Nurse Research) Related Notes: Original Note by JUSTIN Ospina (Nurse Research) filed at 03/21/13 1 036 Met w/22yo F Pt who lives w/parents in [place], [place]. Pt lives in two story house [...] will transport home. Pt has info for [employer]. lices Brock MD - 03/21/2013 7:27 AM PDT Progress Notes by Ulices Scott MD at 03/21/13726 Author: Ulices Scott MD Service: Interventional Pain Management Author Type: Physic deya Filed: 03/21/1335 Date of Service: 03/21/13726 Status: Signed Residential Manager: Ulices Scott MD (Physician) [facility] Service: Interventional Pain Management Pre-Operative History & [...] Date of Service: 03/21/13 0640 Status: Signed Residential Manager: Darlin Orlando, RN (Registered Nurse) Pt had [...]
--- OUTSIDE RECORDS SUMMARY | ~2020-03-23 | XMS | Encounter Summary ---
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 | | | | Therapy | CRPS | Janak Martinez MD | [address] | | | | | (complex | [address] | | | | | regional | [address] | Mailcode: | | | | | pain | Mailstop | [facility] | | | | | syndrome), | [id number] | for Health | | | | | lower limb | [place], [place] | and Healing, | | | | | Gait | [address] | Building 1 | | | | | disturbance | Phone: | [place], [place] | | | | | Muscle pain | [phone] | [phone] | | | | | Procedures | Fax: | Phone: | | | | | PHYSICAL | [phone] | [phone] | | | | | THERAPY | [...] regional pain | | | | [facility] | [place] [address] | syndrome), lower | | | | [address] | [phone] | limb (Primary Dx) | | | | Mailcode: CH3P | | | | | | [facility] | | | | | | and Healing, | | | | | | [address] | | | | | | Floor [place], [place] | | | | | | [address] | | | | | | [phone] | | | +--------+---------+ + + + [...] might be different f rom the original. [id number] BRODY FARAH Date of : 1990 Start of care: 02/14/2012 Date of onset: 02/14/2012 Referring/Attending Practitioner: Janak Riojas MD . Primary/Referral Diagnosis/ICD-9: 355.71B CRPS (complex regional pain syndrome), lower limb Insurance: Payor: [facility] Plan: BCBS OUT OF STATE Product Type: PP O Service period from: 02/14/2012 to: 08/12/2012 Number visits used/authorized: 03/25 [facility] PHYSICAL THERAPY PROGRESS NOTE SUBJECTIVE: Age: 21 [...] 05/03/2012 Walk without crutches 5- 8 minutes 1/4 mile 1/4 mile [...] on today. We also discussed her progress juan f tyler the desensitization process. Date Goals Time Frame [...] change in their status. Guillermo Sanon MSPT [facility] Outpatient Rehabilitation Services Mailcode: Ch3p [address] [facility], [address] [place] [address] documented in this encounter Plan of Treatment Not on filedocumented as of this encounter Procedures + +--------+ + + + | Procedure Name | Priori | Date/Time | Associated Diagnosis | Comments | | | ty | | | | + +--------+ + + + | [place] MANUAL THER | Routin | 06/05/2012 | CRPS (complex | | | TECH,1+REGIONS,EA 15 | e | 5:15 PM | regional pain | | | MIN | | PDT | syndrome), lower | | | | | | limb | | + +--------+ + + + | [place] THERAPEUTIC | Routin | 06/05/2012 | CRPS [...]
--- OUTSIDE RECORDS SUMMARY | ~2020-03-23 | XMS | Encounter Summary ---
Demographics + + + | Address | [address] | | | [place] [address] | + + + | Home Phone [...] Team Providers + +------+ + | Care Breaster Name | Role | Phone | + +------+ + | Justo Vazquez MD | PCP | | + +------+ + Reason for Visit + + + | Reason | Comments | + + + | Refill Request | ketamine | + + + Encounter Details +--------+--------+ + + + | Date | Type | Department | Care Team | Description | +--------+--------+ + + + | 08/03/ | Refill | [facility] Comprehensive | Alex Sanchez, | Refill Request | | 2018 | | Pain Center at | ,PhD [address] [facility] | (ketamine) | | | | [facility] | [facility] | | | | | [address] | [place], [place] | | | | | Mailcode: CH15P | [address] | | | | | [facility] | [phone] | | | | | and Healing, | | | | | | Building | | | | | | Floor [place], [place] | | | | | | [address] | | | | | | [phone] | | | +--------+--------+ + + + [...]
--- OUTSIDE RECORDS SUMMARY | ~2020-03-23 | XMS | Encounter Summary ---
Demographics + + + | Address | [address] | | | [place] [address] | + + + | Home Phone [...] Team Providers + +------+ + | Care Gun Tester Name | Role | Phone | + +------+ + | Justo Vazquez MD | PCP | | + +------+ + Encounter Details +--------+ + + + + | Date | Type | Department | Care Team | Description | +--------+ + + + + | 04/23/ | Anesthesia | Pain Center at [facility] | Aleta Rebollar MD [address] | | | 2019 | Event | [address] | [address] | | | | | Mailcode: CH15P | [facility] [place] | | | | | [place] for [facility] | [address] | | | | | and Healing, | [phone] | | | | | | | | | | | Floor [place], [place] | | | | | | [address] | | | | | | [phone] | | | +--------+ + + + [...]
--- OUTSIDE RECORDS SUMMARY | ~2020-03-23 | XMS | Encounter Summary ---
Demographics + + + | Address | [address] | | | [place] [address] | + + + | Home Phone [...] Phone | + + +---------+ + | Patricai Colin | ECON | Unknown | | + + +---------+ + Care Team Providers + +------+ + | Care Senior Attorney Name | Role | Phone | [...] + + | 06/07/ | Telephone | [facility] Ilene | [place], | Care Coordination | | 2016 | | Pain Center at | TANK STORAGE SUPERVISOR [address] | | | | | [facility] | [place], [place] | | | | | [address] | [address] | | | | | Mailcode: CH15P | [phone] | | | | | [facility] | | | | | | and Healing, | | | | | | Building | | | | | | Floor [facility] [place] | | | | | | [address] | | | | | | [phone] | | | +--------+ + + + [...]
--- OUTSIDE RECORDS SUMMARY | ~2020-03-23 | XMS | Encounter Summary ---
Demographics + + + | Address | [address] | | | [place] [address] | + + + | Home Phone [...] Team Providers + +------+ + | Care Cutter Grind Tool Technician Name | Role | Phone | [...] | | | | | constipation | [facility] [place] | for Health | | | | | type | [address] | and Healing, | | | | | Procedures | | Building 2 | | | | | CONSULT TO | | [place], [place] | | | | | GI PROCEDURE | | [address] | | | | | UNIT: | | Phone: | | | | | ANORECTAL | | [phone] | | | | | MANOMETRY | | Fax: | | | | | CA ANAL | | [phone] | | | | | PRESSURE | [...] | ogy | | [place], | Chh2 [address] | | | | | Gastroparesi | Allegra K, | [address] | | | | | s | [place] [address] | Mailcode: | | | | | | [address] | Center for | | | | | | [place], | Health and | | | | | | [place] [address] | Healing, | | | | | | Phone: | Building 2 | | | | | | [phone] | [place], [place] | | | | | | Fax: | [address] | | | | | | [phone] | Phone: | | | | | | | [phone] | | | | | | | Fax: | | | | | | | [phone] | +--------+--------+ + + + + Encounter Details +--------+---------+ + + + | Date | Type | Department | Care Team | Description | +--------+---------+ + + + | 08/10/ | Office | Digestive Health | Ava Carbajal | Constipation, | | 2016 | Visit | Center at [facility] [address] | MD Melissa | unspecified | | | | [address] | | constipation type | | | | Mailcode: Center | | (Primary Dx) | | | | for Health and | | | | | | Healing, Building 2 | | | | | | [place], [place] | | | | | | [address] | | | | | | [phone] | | | +--------+---------+ + + + [...] in their attached note. Celia Lin MD Technical Engineerinspector tubes Division of Gastroenterology & Hepatology [facility] va Carbajal MD - 08/09/2016 8:40 PM PDT Gastroenterology Initial Clinic Note 08/09/2016 CHIEF COMPLAINT/IDENTIFICATION: "Gastroparesis"-Nausea emesis and abdominal pain -SECOND O GERMAINE Dr[facility] Flores[facility]Rad[facility] PCP: HANDY Villalpando HISTORY OF PRESENT [...] Patient is seen by Dr. Flores in [place] [facility] at [facility]. Patient has hx of GERD which was [...] had CT abdomen w contrast done at [facility] on 10/23/15 showing large stool burden [...] GI MDS: [facility] Nyla [facility] LABS: -increased CRP 06/19/16: Lipase-normal (8) [...] form versus functional syndrome. 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 If negative ARM would refer for chayo rabago study to eval for colonic inertia. [...]
--- OUTSIDE RECORDS SUMMARY | ~2020-03-23 | XMS | Encounter Summary ---
Demographics + + + | Address | [address] | | | [place] [address] | + + + | Home Phone [...] Providers + +------+ + | Care Director Machine Name | Role | Phone | + +------+ + | Justo Vazquez MD | PCP | | + +------+ + Encounter Details +--------+ + + + + | Date | Type | Department | Care Team | Description | +--------+ + + + + | 12/28/ | Groundman/Lineman | [facility] Comprehensive | Alex Sanchez, | Arthralgia of lower | | 2018 | | Pain Center at | ,PhD [address] | leg, unspecified | | | | [facility] | [address] | laterality (Primary | | | | [address] | [place], [place] | Dx) | | | | Mailcode: CH15P | [address] | | | | | [place] [facility] | [phone] | | | | | and Healing, | | | | | | Building | | | | | | Floor [place], [place] | | | | | | [address] | | | | | | [phone] | | | +--------+ + + + [...]
--- OUTSIDE RECORDS SUMMARY | ~2020-03-23 | XMS | Encounter Summary ---
Demographics + + + | Address | [address] | | | [place] [address] | + + + | Home Phone [...] Team Providers + +------+ + | Care Hand Glass Cutter Name | Role | Phone | [...] + + | 03// | Telephone | [facility] | Alex Sanchez, | Medication (clarify | | 2018 | | Pain Center at | ,PhD [address] | sig on Ketamine) | | | | [facility] | [facility] | | | | | [address] | [place], [place] | | | | | Mailcode: CH15P | [address] | | | | | [facility] | [phone] | | | | | and Healing, | | | | | | Building | | | | | | Floor [place], [place] | | | | | | [address] | | | | | | [phone] | | | +--------+ + + + [...]
--- OUTSIDE RECORDS SUMMARY | ~2020-03-23 | XMS | Encounter Summary ---
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 | | | | Therapy | CRPS | Janak Martinez MD | Ch[address]1 [address] | | | | | (complex | [address] | | | | | regional | [address] | Mailcode: | | | | | pain | Mailstop | [facility] | | | | | syndrome), | [address] | for Health | | | | | lower limb | [place], [place] | and Healing, | | | | | Gait | [address] | Building 1 | | | | | disturbance | Phone: | [place], [place] | | | | | Muscle pain | [phone] | [phone] | | | | | Procedures | Fax: | Phone: | | | | | PHYSICAL | [phone] | [phone] | | | | | THERAPY | [...] | [facility] | [place] [address] | syndrome), lower | | | | [address] | [phone] | limb (Primary Dx) | | | | Mailcode: CH3P | | | | | | [facility] | | | | | | and Healing, | | | | | | Building 1 | | | | | | Floor [place], [place] | | | | | | [address] | | | | | | [phone] | | | +--------+---------+ + + + [...] + documented as of this encounter Progress Guillermo Kasper I, PT - 06/09/2012 1:08 PM PDTFormatting of this note might be different f rom the original. [id number] BRODY FARAH Date of : 1990 Start of care: 02/14/2012 Date of onset: 02/14/2012 Referring/Attending Practitioner: Janak Riojas MD . Primary/Referral Diagnosis/ICD-9: 355.71B CRPS (complex regional pain syndrome), lower limb Insurance: Payor: [facility] Plan: BCBS OUT OF STATE Product Type: PP O Service period from: 02/14/2012 to: 08/12/2012 Number visits used/authorized: 05/25 [facility] PHYSICAL THERAPY PROGRESS NOTE SUBJECTIVE: Age: [...] any change in their status. Guillermo Sanon [facility] Outpatient Rehabilitation Services Mailcode: Ch3p [address] [facility], [address] [place] [address] documented in this encounter Plan of Treatment Not on filedocumented as of this encounter Procedures + +--------+ + + + | Procedure Name | Priori | Date/Time | Associated Diagnosis | Comments | | | ty | | | | + +--------+ + + + | [place] MANUAL THER | Routin | 06/09/2012 | CRPS (complex | | | TECH,1+REGIONS,EA 15 | e | 2:46 PM | regional pain | | | MIN | | PDT | syndrome), lower | | | | | | limb | | + +--------+ + + + | [place] THERAPEUTIC | Routin | 06/09/2012 | CRPS [...]
--- OUTSIDE RECORDS SUMMARY | ~2020-03-23 | XMS | Encounter Summary ---
Demographics + + + | Address | [address] | | | [place] [address] | + + + | Home Phone [...] Team Providers + +------+ + | Care Geriatric Nurse Practitioner Name | Role | Phone | + +------+ + | Justo Vazquez MD | PCP | | + +------+ + Encounter Details +--------+ + + + + | Date | Type | Department | Care Team | Description | +--------+ + + + + | 04/03/ | Telephone | [facility] | Alex Sanchez, | | | 2019 | | Pain Center at | ,PhD [address] | | | | | [facility] | [facility] [address] | | | | | [address] | [facility] [place] | | | | | Mailcode: CH15P | [address] | | | | | [place] for [facility] | [phone] | | | | | and Healing, | | | | | | | | | | | | Floor [place], [place] | | | | | | [address] | | | | | | [phone] | | | +--------+ + + + [...]
--- OUTSIDE RECORDS SUMMARY | ~2020-03-23 | XMS | Encounter Summary ---
Demographics + + + | Address | [address] | | | [place] [address] | + + + | Home Phone [...] Team Providers + +------+ + | Care Straight Line Edger Name | Role | Phone | + [...] | Pain Center at | [address] | | | | | [facility] | St Mailstop [address] | | | | | [address] | [place], [place] | | | | | Mailcode: [facility] | [address] | | | | | [facility] | [phone] | | | | | and Healing, | | | | | | [facility] | | | | | | [place], [place] | | | | | | [address] | | | | | | [phone] | | | +--------+ + + + [...]
--- OUTSIDE RECORDS SUMMARY | ~2020-03-23 | XMS | Encounter Summary ---
Demographics + + + | Address | [address] | | | [place] [address] | + + + | Home Phone [...] Team Providers + +------+ + | Care Thermodynamic Physicist Name | Role | Phone | + [...] Medication Question | | 2016 | | [place] [phone] | | | | | | [address] | | | | | | Mailcode: [place] | | | | | | [facility] and | | | | | | Martina, [facility] 2 | | | | | | [place], [place] | | | | | | [address] | | | | | | [phone] | | | +--------+ + + + [...]
--- OUTSIDE RECORDS SUMMARY | ~2020-03-23 | XMS | Encounter Summary ---
Demographics + + + | Address | [address] | | | [place] [address] | + + + | Home Phone [...] Providers + +------+ + | Care Public Information Officer Name | Role | Phone | [...] Pain Medicine | Diagnoses | Chasity | Small Craft Operator Chh1 | | | | / Pain | Abdominal | MD Kenny | [address] | | | | Management | pain, | [address] | Ave | | | | | unspecified | [facility] | Mailcode: | | | | | location | Rd | CH15P Center | | | | | Procedures | [place], [place] | for Health | | | | | CONSULT TO | [address] | and Healing, | | | | | PAIN | | Building | | | | | MANAGEMENT | | 1,15th Floor | | | | | | | [place], [place] | | | | | | | [address] | | | | | | | Phone: | | | | | | | [phone] | | | | | | | Fax: | | | | | | | [phone] | +--------+--------+ + + + + Encounter Details +--------+---------+ + + + | Date | Type | Department | Care Team | Description | +--------+---------+ + + + | 07/11/ | Office | [facility] Comprehensive | Ilene Bright, | Pain of upper | | 2017 | Visit | Pain Center at | PARISH VISITOR [address] | abdomen (Primary | | | | [place] | [place], [place] | Dx); Intractable | | | | [address] | [address] | cyclical vomiting | | | | Mailcode: CH15P | [phone] | with nausea; | | | | [facility] | | Irritable bowel | | | | and Healing, | | syndrome with | | | | Building | | constipation; | | | | Floor [place], [place] | | Complex regional | | | | [address] | | pain syndrome type 1 | | | | [phone] | | of left lower | | [...] and determine next steps. Ilene Childs DNP, PARISH VISITOR-C Adult Pain Service /[facility] [address] [place] [address] documented in this encounter Progress Notes Ilene Bright FNP - 07/11/2017 1:35 PM PDTFormatting of this note might be different fr om the original. [facility] Return Visit Date: 07/11/2017 Chief Complaint Patient presents with Abdominal pain Back pain History of Present Illness: Tracie Farah is a 27 year old female, whose last appoi ntment at the [facility] was April 25, 2017, [...] is in the process of arranging home [facility] for Tracie. She has also changed her [...] her abdominal pain an d associated symptoms. UPSCALE SECURITY OFFICER QUESTIONNAIRE BRIEF PAIN 07/11/2017 Please rate how [...] has interfered with your sleep : 5 UPSCALE SECURITY OFFICER Questionnaire Follow-up Patient 07/11/2017 Please describe the [...] Hemroidectomy Trial spinal cord stimulator leads 08/02/2012 [facility], Surgeon: Janak Riojas MD Cholecystectomy [...] History Social History Narrative Single. Goes to [employer] with a light load. Has been working at [employer], can' t work on [employer]. Has roommates. Allergies Allergen Reactions Morphine Anaphylaxis [...] by physician. Concentration is 150mg/mL. Compounded by [facility] ( [phone]) LAMOTRIGINE 200 MG TABLET Take 1 tablet [...] GRAM-5.86 GRAM SOLUTION Take as directed by [facility] Digestive Health- 2 gallon bowel prep [...] and summary of old medical records (source: [employer]), as summarized in the body of the [...] Shantel Sal[place], am functioning as a medical planner for MARLENI Clark DNP I have reviewed and verified the above scribed note of my visit with this patient as record ed by Shantel Salinas. Ilene Childs DNP, TERESA-Brendan Adult Pain Service /[facility] [place] [address] Addendum: I paged Dr. Les Gaspar. He was out of the clinic, I spoke with the covering provider and dianelys Hodges's request for food allergy testing. Since Tracie thinks her pain and vomiting may b e triggered by gluten, covering provided ordered appropriate workup, which I communicated to Tracie and the the lab in [place], [place]. She will followup with me and GI once these results are available. Ilene Childs DNP, PARISH VISITOR-C Adult Pain Service /[facility] [address] [place] [address] documented in this e ncounter Plan of [...]
--- OUTSIDE RECORDS SUMMARY | ~2020-03-23 | XMS | Encounter Summary ---
Demographics + + + | Address | [address] | | | [place] [address] | + + + | Home Phone [...] Team Providers + +------+ + | Care Controls Designer Name | Role | Phone | [...] 2016 | | Pain Center at | STOCK SORTER [address] | | | | | [facility] | [place], [place] | | | | | [address] | [address] | | | | | Mailcode: CH15P | [phone] | | | | | [facility] | | | | | | joana Mack, | | | | | | Building | | | | | | Floor [place], [place] | | | | | | [address] | | | | | | [phone] | | | +--------+ + + + [...]
--- OUTSIDE RECORDS SUMMARY | ~2020-03-23 | XMS | Encounter Summary ---
Demographics + + + | Address | [address] | | | [place] [address] | + + + | Home Phone [...] Team Providers + +------+ + | Care Pen Tester Name | Role | Phone | + +------+ + | Justo Vazquez MD | PCP | | + +------+ + Encounter Details +--------+ + + + + | Date | Type | Department | Care Team | Description | +--------+ + + + + | 09/20/ | Telephone | [facility] | Ilene Bright, | | | 2017 | | Pain Center at | TURNTABLE ENGINEER [address] | | | | | [facility] | [place], [place] | | | | | [address] | [address] | | | | | Mailcode: CH15P | [phone] | | | | | [facility] | | | | | | and Healing, | | | | | | | | | | | | Floor [place], [place] | | | | | | [address] | | | | | | [phone] | | | +--------+ + + + [...]
--- OUTSIDE RECORDS SUMMARY | ~2020-03-23 | XMS | Encounter Summary ---
Demographics + + + | Address | [address] | | | [place] [address] | + + + | Home Phone | | + + + | Preferred Language | Unknown | + + + | Marital Status | Single | + + + | Buddhist Affiliation | 1073 | + + + | Race | Unknown | + + + | Ethnic Group | Unknown | + + + Author + + + | Author | [facility] | | | and [place] | + + + | Organization | [facility] | | | and [place] [...] [place] | | | | | [address] | | + + + + + | Bryant Farah | ECON | Unknown | | + + + + + Care Team Providers + +------+ + | Care Optical Instrument Repairer Name | Role | Phone | + +------+ + PCP | Unavailable | + +------+ + Encounter Details +--------+ + + + + | Date | Type | Department | Care Team | Description | +--------+ + + + + | 03/20/ | Hospital | [facility] | Ulices Scott, | 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 T his also failed to provide adequate [...] stable condition. She will [facility] for continued medical management. She can [...] 03/22/131929 Date of Service: 03/22/131920 Status: Signed Fleet Manager/Dispatch: Ava Carolina RN (Registered Nurse) Patient tolerated [...] 03/22/131854 Date of Service: 03/22/131854 Status: Signed Fleet Manager/Dispatch: Ava Carolina RN (Registered Nurse) Discharge teaching [...] 03/22/13656 Date of Service: 03/22/13651 Status: Signed Fleet Manager/Dispatch: Ulices Scott MD (Physician) [facility] Service: Interventional Pain Management Pre-Operative History & [...] Author: JUSTIN Ospina Service: (none) Author Type: Print Press Operator Filed: 03/21/13 1036 Date of Service: 03/21/13 103 Status: Addendum Fleet Manager/Dispatch: JUSTIN Ospina (Print Press Operator) Related Notes: Original Note by JUSTIN Ospnia (Print Press Operator) filed at 03/21/13 1 036 Met w/22yo F Pt who lives w/parents in [place], [place]. Pt lives in two story house [...] will transport home. Pt has info for [employer]. lices Brock MD - 03/21/2013 7:27 AM PDT Progress Notes by Ulices Scott MD at 03/21/13726 Author: Ulices Scott MD Service: Interventional Pain Management Author Type: Physic deya Filed: 03/21/1335 Date of Service: 03/21/13726 Status: Signed Fleet Manager/Dispatch: Ulices Scott MD (Physician) [facility] Service: Interventional Pain Management Pre-Operative History & [...] Date of Service: 03/21/13 0640 Status: Signed Fleet Manager/Dispatch: Darlin Orlando, RN (Registered Nurse) Pt had [...]
--- OUTSIDE RECORDS SUMMARY | ~2020-03-23 | XMS | Encounter Summary ---
Demographics + + + | Address | [address] | | | [place] [address] | + + + | Home Phone [...] Team Providers + +------+ + | Care Sort Line Worker Name | Role | Phone | [...] CRPS | Janak Martinez MD | [address] | | | | Management | (complex | [address] | | | | | regional | [address] | Mailcode: | | | | | pain | Mailstop | CH15P Center | | | | | syndrome), | [id number] | for Health | | | | | lower limb | [place], [place] | and Healing, | | | | | Gait | [address] | Building [address], | | | | | disturbance | Phone: | 15th Floor | | | | | Muscle pain | [phone] | [place], [place] | | | | | Procedures | Fax: | [address] | | | | | CONSULT TO | [phone] | Phone: | | | | | PAIN CENTER | | [phone] | | | | | | | Fax: | | | | | | | [phone] | +--------+--------+ + + + + Encounter Details +--------+---------+ + + + | Date | Type | Department | Care Team | Description | +--------+---------+ + + + | 03/20/ | Office | Pain Center at [facility] | Shelia Feldman, PhD | Unspecified | | 2011 | Visit | [address] | | adjustment reaction | | | | Mailcode: CH15P | | (Primary Dx) | | | | [facility] | | | | | | and [place], | | | | | | | | | | | | [place], [place] | | | | | | [address] | | | | | | [phone] | | | +--------+---------+ + + + [...] Feldman, PhD - 03/20/2012 3:27 PM PDT [facility] Name: Tracie Farah MR#: [id number] Date of : 1990 Date: March 20, 2012 Attending Psychologist: SHELIA FELDMAN, PHD CPT: 80837 Duration: 60min Psych: 309.0 Pain: 355.71 Tracie arrived on time for today's appointment, casually dressed and neatly groomed. Affect was appropriate, mood normothymic. She drove herself today and used crutches. She stated t hat she was doing "better", mainly because she has returned to work at [employer]. She is wo rking about 2 hour shifts; her pain is flared during work but she feels good because she is engaging in life and also is earning money. She reported that she has been cutting down on her pain medication because she wants to improve cognition (currently [facility]). She notes that she [...] discretion, not currently planned. SHELIA FELDMAN, PHD Integrative Medicine Physician Licensed Clinical Psychologist [facility] [place] Department of Anesthesiology & Perioperative Medicine [facility] [address] [place] [address] Historical Information: Introduction: Tracie Farah is a 21-year-old woman with >5 year hx of CRPS, R LE.S ocial & Psychiatric History: Tracie Farah lives in [place] in a shared apartment space. She has struggled wi th CRPS for at least 5 years; original injury to her foot was in 2001. In summer 2010 she h ad inpt pain tx at [facility] with [facility] [place] [facility] [...] stalks her; she withholds info from da valdemar as she fears her father would committ a crime to protect his daughter (e.g., confront the stalker). I discussed with her today the idea of reclaiming control by stopping all respond ing to his texts. She learned some pain management techniques at [facility], mainly DB and PMR, which she [...] Travel is a barrier; she lives in [place] DSM-IV Diagnoses/Impressions: Clymer I: 1. 309.9 Unspecified Adjustment Reaction 2. 780.50 Sleep Disturbance Clymer II: Deferred. Clymer III: Patient Active Problem List Diagnoses CRPS (complex regional pain syndrome), lower limb Gait disturbance Muscle pain Adjustment reaction Clymer IV: CRPS pain, pain related debility;difficulty attending class, working; family stres s; stalker ex-bf Clymer V: Global Assessment of Functioning = 75 [...] me should questions arise. SHELIA FELDMAN, PHD Integrative Medicine Physician Licensed Clinical Psychologist [facility] [place] Department of Anesthesiology & Perioperative Medicine [facility] [address] [place] [address] documented in this enc ounter Plan of Treatment Not on filedocumented as of this encounter Visit Diagnoses + + | Diagnosis | + + | Unspecified adjustment reaction - Primary | + + documented in this encounter
--- OUTSIDE RECORDS SUMMARY | ~2020-03-23 | XMS | Encounter Summary ---
Demographics + + + | Address | [address] | | | [place] [address] | + + + | Home Phone [...] Team Providers + +------+ + | Care Evp Strategy Name | Role | Phone | [...] | | | | | syndrome | [facility] | [facility] | | | | | type [address] of | [address] | Rd [place], | | | | | left lower | [facility] [place] | [place] | | | | | extremity | [address] | [address] | | | | | Procedures | Phone: | Phone: | | | | | REQUEST TO | [phone] | [phone] | | | | | SURGERY | Fax: | Fax: | | | | | BELLOWS CHARGER ASSEMBLER | [phone] | [phone] | +--------+---------+ + + + + Reason [...] | | | | | Procedures | [place], [place] | [place], | | | | | CONSULT TO | [address] | [place] | | | | | PAIN | | [address] | | | | | MANAGEMENT | | Phone: | | | | | | | [phone] | | | | | | | Fax: | | | | | | | [phone] | +--------+--------+ + + + + Encounter Details +--------+---------+ + + + | Date | Type | Department | Care Team | Description | +--------+---------+ + + + | 10/09/ | Office | [facility] | Alex Sanchez, | Complex regional | | 2018 | Visit | Pain Center at | ,PhD [address] [facility] | pain syndrome type 1 | | | | [facility] | [facility] [address] | of left lower | | | | [address] | [facility] [place] | extremity (Primary | | | | Mailcode: CH15P | [address] | Dx) | | | | [facility] | [phone] | | | | | and Healing, | | | | | | | | | | | | Floor [place], [place] | | | | | | [address] | | | | | | [phone] | | | +--------+---------+ + + + [...] in this encounter Patient Instructions Patient Instructions YesiMelodyh - 10/09/2018 10:00 AM Shoan, Thank you for taking the time to see us in the [facility]. It was great to s ee you. Below is a summary of the discussion that we had today: - I have provided you with an external order to see a senior accounts payable specialist today. Please p resent this referral [...] insurance. PRE-PROCEDURE INSTRUCTIONS 1. Please bring a lumber driver with you as we may give [...] or blood thinning medications (other than aspirin), [facility] doctor who is doing your procedure will communicate with the provider who is prescribing y our anticoagulant therapy. If you do not have clear instructions on what to do with your an ticoagulant by 2 weeks before your procedure, please contact [facility] to cl arify your instructions. The phone number for questions or concerns is [phone]. documented in this encounter Progress Notes Alex [...] notes. Alex Sanchez MD,PhD [facility] [place] signed by Alex Sanchez MD,PhD at 09/15 [...] Person MD - 10/09/2018 10:[address] [facility] Center Return Visit Date: 10/09/2018 Chief Complaint Patient presents with Back pain Low back pain Pain in left leg Knee pain Ankle pain Foot pain History of Present Illness: Tracie Farah is a 28 year old female, whose last appoi ntment at the [facility] was September 28, 2018, for a clinic visit with Yun Frey NP. At that time our plans were: Recommendations/Plan: 1. Recommend to keep her appointment with Dr. Sanchez on 10/02/2018. 2. To contact the [facility] rep if she has any further question [...] She went into the emergency room in [place], [place] where they rem cady the leads. She [...] which she suspects also used dissolvable stitches. BROADCAST NEWS PRODUCER Brief Pain Inventory: (ten= worst possible [...] Hemroidectomy Trial spinal cord stimulator leads 08/02/2012 [facility], Surgeon: Janak Riojas MD [...] a light load. Has been working at [employer], can' t work on [employer]. Has roommates. Allergies Allergen Reactions Morphine Anaphylaxis [...] the vein (IV) every eight hour s. 4303-7592-19 COMPOUNDED MED RX CONTROLLED (SEE ADMIN INSTRUCT [...] by physician. Concentration is 150mg/mL. Compounded by [employer] ) KETOROLAC IM Inject into the muscle [...] (IV) every twel ve hours as needed. 5800-1576-50 ONDANSETRON 4 MG DISINTEGRATING TABLET Dissolve 1 [...] have included my personal review of Ms. Faarh's history and ph ysical examination. I also used the following components in my medical decision making: Review and summary of old medical records (source: [employer]), as summarized in the body of the [...] Key. Arben Valerio MD PAIN CENTER AT [facility] [address] [facility] Mail Code: Ch15p [place] [address] [phone] signed by Alex Sanchez MD,PhD at 10/10/2018 9:27 AM [facility] umented in this encounter Plan of Treatment Not on filedocumented as of this encounter Visit Diagnoses + + | Diagnosis | + + | Complex regional pain syndrome type 1 of left lower extremity - Primary | + + documented in this encounter
--- OUTSIDE RECORDS SUMMARY | ~2020-03-23 | XMS | Encounter Summary ---
Demographics + + + | Address | [address] | | | [place] [address] | + + + | Home Phone [...] Team Providers + +------+ + | Care Scalder Name | Role | Phone | + +------+ + | Justo Vazquez MD | PCP | | + +------+ + Encounter Details +--------+ + + + + | Date | Type | Department | Care Team | Description | +--------+ + + + + | 10/19/ | Telephone | [facility] | Ilene Bright, | | | 2017 | | Pain Center at | BEER COOLER [address] | | | | | [facility] | [place], [place] | | | | | [address] | [address] | | | | | Mailcode: CH15P | [phone] | | | | | [facility] | | | | | | and Healing, | | | | | | | | | | | | Floor [place], [place] | | | | | | [address] | | | | | | [phone] | | | +--------+ + + + [...]
--- OUTSIDE RECORDS SUMMARY | ~2020-03-23 | XMS | Encounter Summary ---
Demographics + + + | Address | [address] | | | [place] [address] | + + + | Home Phone [...] Providers + +------+ + | Care Hospital Orderly Name | Role | Phone | + +------+ + | Justo Vazquez MD | PCP | | + +------+ + Encounter Details +--------+ + + + + | Date | Type | Department | Care Team | Description | +--------+ + + + + | 07/28/ | Documentati | [facility] Comprehensive | Ilene Bright, | | | 2017 | on | Pain Center at | HANDBAG FINISHER [address] | | | | | [facility] | [place], [place] | | | | | [address] | [address] | | | | | Mailcode: CH15 | [phone] | | | | | [place] [facility] | | | | | | and Healing, | | | | | | | | | | | | Floor [place], [place] | | | | | | [address] | | | | | | [phone] | | | +--------+ + + + [...]
--- OUTSIDE RECORDS SUMMARY | ~2020-03-23 | XMS | Encounter Summary ---
Demographics + + + | Address | [address] | | | [place] [address] | + + + | Home Phone [...] Team Providers + +------+ + | Care Key Person Name | Role | Phone | [...] | | | | regional | ,PhD [address] | | | | | | pain | [address] | | | | | | syndrome | [address] | | | | | | type 1 of | Rd | | | | | | left lower | [place], [place] | | | | | | extremity | [address] | | | | | | Procedures | Phone: | | | | | | PHYSICAL | [phone] | | | | | | THERAPY | Fax: | | | | | | REFERRAL | [phone] | | +--------+--------+ + + + + Encounter Details +--------+ + + + + | Date | Type | Department | Care Team | Description | +--------+ + + + + | 01/22/ | Telephone | [facility] | Alex Sanchez, | | | 2019 | | Pain Center at | ,PhD [address] [facility] | | | | | [facility] | [facility] | | | | | [address] | [place], [place] | | | | | Mailcode: CH15P | [address] | | | | | [facility] | [phone] | | | | | and Healing, | | | | | | | | | | | | [place], [place] | | | | | | [address] | | | | | | [phone] | | | +--------+ + + + [...]
--- OUTSIDE RECORDS SUMMARY | ~2020-03-23 | XMS | Encounter Summary ---
Demographics + + + | Address | [address] | | | [place] [address] | + + + | Home Phone [...] | | | | regional | ,PhD [address] | | | | | | pain | [address] | | | | | | syndrome | [address] | | | | | | type 1 of | Rd | | | | | | left lower | [place], [place] | | | | | | extremity | [address] | | | | | | Procedures | Phone: | | | | | | CONSULT TO | [phone] | | | | | | ORTHOPEDICS | Fax: | | | | | | AND | [phone] | | | | | | REHABILITATI | | | | | | | ON | | | +--------+--------+ + + + + Encounter Details +--------+ + + + + | Date | Type | Department | Care Team | Description | +--------+ + + + + | 06/08/ | Engineering Tech | [facility] Comprehensive | Alex Sanchez, | Complex regional | | 2019 | | Pain Center at | ,PhD [address] [facility] | pain syndrome type 1 | | | | [facility] | [facility] [address] | of left lower | | | | [address] | [place], [place] | extremity (Primary | | | | Mailcode: CH15P | [address] | Dx) | | | | [place] [facility] | [phone] | | | | | and Healing, | | | | | | | | | | | | Floor [place], [place] | | | | | | [address] | | | | | | [phone] | | | +--------+ + + + [...]
--- OUTSIDE RECORDS SUMMARY | ~2020-03-23 | XMS | Encounter Summary ---
Demographics + + + | Address | [address] | | | [place] [address] | + + + | Home Phone [...] Team Providers + +------+ + | Care Bank Boss Name | Role | Phone | [...] | | syndrome | [address] | [facility] | | | | | type 1 of | Rd | Rd [place], | | | | | left lower | [place], [place] | [place] | | | | | extremity | [address] | [address] | | | | | Procedures | Phone: | Phone: | | | | | REQUEST TO | [phone] | [phone] | | | | | SURGERY | Fax: | Fax: | | | | | [place] | [phone] | [phone] | +--------+---------+ + + + + Encounter Details +--------+---------+ + + + | Date | Type | Department | Care Team | Description | +--------+---------+ + + + | 12/07/ | Office | [facility] Comprehensive | Eulogio | Complex regional | | 2019 | Visit | Pain Center at | MD Irene [address] | pain syndrome type 1 | | | | [facility] | [address] [facility], | of left lower | | | | [address] | [place] [address] | extremity (Primary | | | | Mailcode: CH15P | [phone] | Dx); S/P insertion | | | | [facility] | | of spinal cord | | | | and Healing, | | stimulator | | | | Building , | | | | | | Floor [place], [place] | | | | | | [address] | | | | | | [phone] | | | +--------+---------+ + + + [...] PSTI have reviewed, edited and verified the a neville scribed note of this patient's visit as [...] Lujan MD - 12/07/2018 9:10 AM PST [facility] Pain Center Return Visit Date: 12/07/2018 Chief Complaint Patient presents with Back pain Pain in left leg History of Present Illness: Tracie Farah is a 28 year old female, whose last appoi ntment at the [facility] was December 05, 2018, for [...] her 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 Goes to [employer] with a light load. Has been working at [employer] can' t work on [employer]. Has roommates. Allergies Allergen Reactions Morphine Anaphylaxis [...] GRAM-5.86 GRAM SOLUTION Take as directed by [facility] Digestive [facility]- 2 gallon bowel prep POLYETHYLENE GLYCOL 3350 [...] and summary of old medical records (source: [employer]), as summarized in the body of the [...] present for the encounter. Irene Krishnan MD [facility] COM[facility]ENSIVE [facility] AT [facility] [address] [facility], 4th Floor Mail Code: CH4[place], [place] [address] documented in thi s encounter Plan of Treatment Not on filedocumented as of this encounter Visit Diagnoses + + | Diagnosis | + + | Complex regional pain syndrome type 1 of left lower extremity - Primary | + + | S/P insertion of spinal cord stimulator | + + documented in this encounter
--- OUTSIDE RECORDS SUMMARY | ~2020-03-23 | XMS | Encounter Summary ---
Demographics + + + | Address | [address] | | | [place] [address] | + + + | Home Phone [...] Team Providers + +------+ + | Care On Air Announcer Name | Role | Phone | + [...] Rd | | | | | | [place], [place] | | | | | | [address] | | | +--------+ + + + [...]
--- OUTSIDE RECORDS SUMMARY | ~2020-03-23 | XMS | Encounter Summary ---
Demographics + + + | Address | [address] | | | [place] [address] | + + + | Home Phone [...] Team Providers + +------+ + | Care Plant Breeder Name | Role | Phone | + [...] | Pain Center at | [address] | | | | | [facility] | [address] | | | | | [address] | [place], [place] | | | | | [facility]: [facility] | [address] | | | | | [facility] | [phone] | | | | | and Healing, | | | | | | [facility] | | | | | | [place], [place] | | | | | | [address] | | | | | | [phone] | | | +--------+ + + + [...]
--- OUTSIDE RECORDS SUMMARY | ~2020-03-23 | XMS | Encounter Summary ---
Demographics + + + | Address | [address] | | | [place] [address] | + + + | Home Phone [...] Team Providers + +------+ + | Care Sql Server Consultant Name | Role | Phone | [...] + + | 12/26/ | Refill | [facility] Comprehensive | Alex Sanchez, | Refill Request | | 2019 | | Pain Center at | ,PhD [address] [facility] | | | | | [facility] | [address] | | | | | [address] | [place], [place] | | | | | Mailcode: CH15 | [address] | | | | | [facility] | [phone] | | | | | and [place], | | | | | | Building | | | | | | Floor [facility] [place] | | | | | | [address] | | | | | | [phone] | | | +--------+--------+ + + + [...]
--- OUTSIDE RECORDS SUMMARY | ~2020-03-23 | XMS | Encounter Summary ---
Demographics + + + | Address | [address] | | | [place] [address] | + + + | Home Phone [...] Providers + +------+ + | Care Sales Promoter Name | Role | Phone | + [...] | | | | | extremity | [address] | [address] | | | | | Procedures | Phone: | Phone: | | | | | REQUEST TO | [phone] | [phone] | | | | | SURGERY | Fax: | Fax: | | | | | CARROTING MACHINE OPERATOR | [phone] | [phone] | +--------+---------+ + + + + Encounter Details +--------+---------+ + + + | Date | Type | Department | Care Team | Description | +--------+---------+ + + + | 12/22/ | Office | [facility] Comprehensive | Ilene Bright, | Complex regional | | 2019 | Visit | Pain Center at | [facility] [address] | pain syndrome type 1 | | | | [facility] | [place], [place] | of left lower | | | | [address] | [address] | extremity; S/P | | | | Mailcode: [id number] | [phone] | insertion of spinal | | | | [place] for [facility] | | cord stimulator | | | | and Healing, | | | | | | Building , | | | | | | Floor [place], [place] | | | | | | [address] | | | | | | [phone] | | | +--------+---------+ + + + [...] short summary of what we discussed today marjorie cobian your reference. - The [place] branch sales and service representative met with you and made adjustments to your stimulator. I spoke w ith the branch sales and service representative and she is happy with your [...] call this prescription into the [facility] in [place]. It was great to see you again, documented in this encounter Progress Notes Ilene Bright, TERESA - 12/22/2018 11:00 AM PSTFormatting of this note might be different fr om the original. 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 Goes to [employer] with a light load. Has been working at [employer], can' t work on [employer]. Has roommates. Allergies Allergen Reactions Morphine Anaphylaxis [...] summary of old medical records (source: [facility], [facility] [place] Everywhere), as [...] taking for her surgical incision. The [facility] branch sales and service representative visited the patient in order to [...] ed by Collin Salomon. Ilene Childs DNP, [facility] [address] [place] [address] mmarcelo, Charline Torres MA - 12/22/2018 11:00 [...]
--- OUTSIDE RECORDS SUMMARY | ~2020-03-23 | XMS | Encounter Summary ---
Demographics + + + | Address | [address] | | | [place] [address] | + + + | Home Phone [...] Team Providers + +------+ + | Care Coil Machine Operator Name | Role | Phone | + +------+ + | Justo Vazquez MD | PCP | | + +------+ + Encounter Details +--------+ + + + + | Date | Type | Department | Care Team | Description | +--------+ + + + + | 10/20/ | Telephone | [facility] | Ilene Bright, | | | 2017 | | Pain Center at | WEB PRODUCTION DESIGNER [address] | | | | | [facility] | [place], [place] | | | | | [address] | [address] | | | | | Mailcode: [id number] | [phone] | | | | | [facility] | | | | | | and Healing, | | | | | | | | | | | | Floor [place], [place] | | | | | | [address] | | | | | | [phone] | | | +--------+ + + + [...]
--- OUTSIDE RECORDS SUMMARY | ~2020-03-23 | XMS | Encounter Summary ---
Demographics + + + | Address | [address] | | | [place] [address] | + + + | Home Phone [...] Providers + +------+ + | Care Registered Public Surveyor Name | Role | Phone | [...] | | | | | syndrome | [facility] | | | | | type [address] of | [address] | Rd [place], | | | | | left lower | [facility], [place] | [place] | | | | | extremity | [address] | [address] | | | | | Procedures | Phone: | Phone: | | | | | REQUEST TO | [phone] | [phone] | | | | | SURGERY | Fax: | Fax: | | | | | LINUX DEVELOPER | [phone] | [phone] | +--------+---------+ + + + + Physical Therapy (Routine) +--------+--------+ + + + + | Status | Reason | Specialty | Diagnoses / | Referred By | Referred To | | | | | Procedures | Contact | Contact | +--------+--------+ + + + + | Closed | | Physical | Diagnoses | Daniel | [facility] | | | | Therapy | Complex | Alex Alba, | [place] | | | | | regional | ,PhD 6961 | OTPTRehab | | | | | pain | [facility] | [address] | | | | | syndrome | [facility] | [place] | | | | | type 1 of | Rd | [place] | | | | | left lower | [place], [place] | [address] | | | | | extremity | [address] | Phone: | | | | | Procedures | Phone: | [phone] | | | | | PHYSICAL | [phone] | Fax: | | | | | THERAPY | Fax: | [phone] | | | | | REFERRAL | [phone] | | +--------+--------+ + + + + [...] | | | | | Procedures | [place], [place] | Rd [place], | | | | | CONSULT TO | [address] | [place] | | | | | PAIN | | [address] | | | | | MANAGEMENT | | Phone: | | | | | | | [phone] | | | | | | | Fax: | | | | | | | [phone] | +--------+--------+ + + + + Encounter Details +--------+---------+ + + + | Date | Type | Department | Care Team | Description | +--------+---------+ + + + | 06/12/ | Office | [facility] Comprehensive | Alex Sanchez, | Complex regional | | 2018 | Visit | Pain Center at | ,PhD [address] [facility] | pain syndrome type 1 | | | | [facility] | [address] | of left lower | | | | [address] | [place], [place] | extremity (Primary | | | | Mailcode: CH15P | [address] | Dx) | | | | [place] [facility] | [phone] | | | | | and Healing, | | | | | | | | | | | | Floor [place], [place] | | | | | | [address] | | | | | | [phone] | | | +--------+---------+ + + + [...] + + + | Blood Pressure | 121/79 | 06/12/2018 9:54 AM | | | | | PDT | | + + + + + | Pulse | 80 | 06/12/2018 9:54 AM | | | | | PDT | | + + + + + | Temperature | - | - | | + + + + + | Respiratory Rate | 16 | 06/12/2018 9:54 AM | | | | | PDT | | + + + + + | Oxygen Saturation | 100% | 06/12/2018 9:54 AM | | | | | PDT | | + + + + + | Inhaled Oxygen | - | - | | | Concentration | | | | + + + + + | Weight | 73.9 kg (163 lb) | 06/12/2018 9:54 AM | | | | | PDT | | + + + + + | Height | 162.6 cm (5' 4") | 06/12/2018 9:54 AM | | | | | PDT | | + + + + + | Body Mass Index | 27.98 | 06/12/2018 9:54 AM | | | | | PDT | | + + + + + documented in this encounter Patient Instructions Patient Instructions Sonia Key - 06/12/2018 10:00 AM Daily, Thank you for taking the time to see us in the [facility]. It was great to s ee you. Below is a summary of the discussion that we had today: - The procedure we discussed today is trial of DRG stimulation. Please see below for pre-pr ocedure instructions. - Obtain X-ray Cervical Spine to further evaluate your areas of pain. We may discuss approp riate treatment options for your pain upon review of this imaging study. We may also conside r obtaining MRI imaging of your cervical spine. - To provide additional pain relief, I have provided you with an external referral to physi richard therapy today for neck-specific exercises. - If you are interested in acupuncture and massage therapy in the future, please contact me via [employer] to request an order to schedule. The procedure you discussed with your doctor is called: [facility] DRG TRIAL LUMBAR [facility]. Please make sure this is scheduled with the [facility]. PRE-PROCEDURE INSTRUCTIONS 1. Please bring a piledriver carpenter with you as we may give you medications that impair your ability to drive. This is necessary even if you do not receive sedation. You may take a taxi or ri [employer] if you are accompanied by a responsible [...] or blood thinning medications (other than aspirin), e doctor who is doing your procedure will communicate with the provider who is prescribing y our anticoagulant therapy. If you do not have clear instructions on what to do with your an ticoagulant by 2 weeks before your procedure, please contact [facility] to cl arify your instructions. The phone number for questions or concerns is [phone]. documented in this encounter Progress Notes Holly Edouard MA - 06/12/2018 10:00 AM PDTCMA History: 1. Has your pain [...] pain, stiffness and swelling 2. GASTROINTESTINAL SYSTEM nausea and constipation 3. GENITOURINARY SYSTEM urinary hesitancy, urinary incontinence and dysmenorrhea 4. NERVOUS SYSTEM numbness, weakness and headache 5. PSYCHIATRIC HISTORY sleep disturbance, decreased energy, concentration , anxiety and s ocial withdrawal Alex Ha MD,P hD - 06/12/2018 10:00 AM PDT [facility] Return Visit Date: 06/12/2018 Chief Complaint Patient presents with Pain in left leg History of Present Illness: Tracie Farah is a 28 year old female, whose last appoi ntment at the [facility] was May 08, 2018, for a clinic visit. At that time our plans were: Recommendation/Plan: - Letter updated today with recent adverse reaction to Haldol - Consider seeing orthopedic surgeon who is able to perform hardware removal surgery of her screws - May consider trial of DRG stimulation should she continue to be painful following hardwar e removal surgery Today, she complains of constant pain located in the left lower leg. Her pain is made worse by physical activity. Her pain is improved by ketamine. This condition has remained unchang ed since Ms. Farah's last visit. Ms. Farah reports that there have been no changes in her history since the last appointment. Since our last visit, she was evaluated by an orthopedic surgeon who reviewed her records a nd imaging to determine whether she was an appropriate candidate for hardware removal surger y of her screws. She reports that he determined that "the way things were put in and her nikita wing, [the screws] rotated which created extra scar tissue". She reports that he did not bel ieve that her pain was related to the boone and that surgery would likely worsen her pain. He reportedly consulted orthopedic oncology as well who agreed with his findings. In addition to her typical left leg pain, she also complains of neck pain that extends over the posterior neck bilaterally that "feels like it is crushing" and makes it uncomfortable for her to hold up her neck. She describes developing numbness that extends with pain up to her inner ears, bilaterally. She states that the sensation reminds her of the sensation she gets after having her tooth done when the anesthesia wears off and "she feels kind of differ ent". At times, she feels like she is unable to hold up her neck due to the pain. She has no t yet tried physical therapy for this. She notes that her neck issue has been ongoing for the last couple of months but has been p rogressively worsening since. She suspects that the start of this pain correlates with her p revious vomiting episodes and history of interstitial cystitis. She notes bilateral hand wea kness, right greater than left without obvious numbness to bilateral hands. While engaging i n physical therapy for her left leg, she notes that this mildly agitated her neck pain. 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 Goes to [employer] with a light load. Has been working at [employer], can' t work on [employer]. Has roommates. Allergies Allergen Reactions Morphine Anaphylaxis [...] by physician. Concentration is 150mg/mL. Compounded by [facility] ( [phone]) KETOROLAC IM Inject into the muscle (IM). [...] GRAM SOLUTION Take as directed by [facility]- 2 gallon bowel [...] Labs: Not applicable Bones, Joints, and Muscles: atrophy, joint pain, muscle pain, stiffness and swelling Gastrointestinal System: nausea and constipation Genitourinary System: urinary hesitancy, urinary incontinence and dysmenorrhea Nervous System: numbness, weakness and headache Psychiatric History: sleep disturbance, decreased energy, concentration , anxiety and soci al withdrawal Physical Examination: BP 121/79 | Pulse 80 | RR 16 | Ht 1.626 m [...] distress. Abdominal: She exhibits no distension. Musculoskeletal: SPINE: physiologic curvature Cervical spine: Curvature: physiologic Cervical active range of motion in degrees: Flexion: 35; painful Extension: 25; painful Right rotation + extension: painful Left rotation + extension: painful (more painful than right rotation and extension) Myofascial tenderness: Diffusely tender left greater than right Neurological: She is alert and oriented to person, place, and time. Reflex Scores: Tricep reflexes are 2+ on the right side and 2+ on the left side. Bicep reflexes are 2+ on the right side and 2+ on the left side. Brachioradialis reflexes are 2+ on the right side and 2+ on the left side. Patellar reflexes are 2+ on the right side and 2+ on the left side. Motor power: Right deltoid 5/5 Left deltoid 4+/5 Right triceps 5/5 Left triceps 4+/5 Right biceps 5/5 Left biceps 4+/5 Right intrinsics 5/5 Left intrinsics 4+/5 Sensory examination: Intact sensation to filament throughout bilateral upper extremities Negative Rose's, bilaterally Skin: Skin is warm and dry. She [...] and summary of old medical records (source: [employer]), as summarized in the body of the note. Impression: Ms. Tracie Farah is a 28 y.o. female with a history of CRPS of the lower extremity as well as abdominal pain associated with severe, cyclical nausea and vomiting. Since our l ast visit, she was evaluated by an orthopedic surgeon who determined that surgical intervent ion was not indicated for removal of her left ankle hardware due to the development of scar tissue and rotation of the originally placed staple. As she is unable to pursue surgical int erventions for her pain, we agreed that it is appropriate to proceed with plans for trial of DRG stimulation. We reviewed the details of the procedure and discussed that as she has not obtained formal MRI imaging of her spine for several years, I will review the images from er latest CT abdomen/pelvis and determine if additional MRI imaging is necessary. In regards to her new neck pain complaints, she describes pain on bilateral sides of the ne ck at the base of her head that extends into her ears bilaterally. This pain has been progre ssively worsening over the past few months with associated weakness to bilateral hands, righ t greater than left. To further evaluate her pain, I discussed my recommendation to obtain X R Cervical Spine 4 Views in AP, lateral, flexion, and extension. I will contact her with the results of this imaging study. In the meantime, I have provided her with a new external ref erral to physical therapy for neck specific exercises. We may consider more advanced imaging including MRI Cervical Spine pending the results of her XR study (if X-ray is normal, she w ill focus on physical therapy). Should physical therapy fail to improve her neck pain, she was encouraged to send me a mess age via [employer] to request referrals to acupuncture and massage therapy for additional pain relief. Recommendation/Plan: - Recommend DRG Stimulation Trial, ordered - Obtain XR Cervical Spine 4 Views, ordered - External referral provided to physical therapy for neck specific exercises - May consider MRI Cervical Spine imaging pending XR Cervical Spine results for further bri luation - May consider internal referrals to acupuncture and massage should physical therapy fail t o provide adequate benefit I, Sonia Key, am functioning as a scribe for Alex Sanchez MD,PhD. I have reviewed and verified the above scribed note of my visit with this patient as record ed by Sonia Key. Alex Sanchez MD PhD Paper Goods Machine Set Up Operator Anesthesiology and Pain Management [facility] documented in t his encounter Plan of Treatment Not on filedocumented as of this encounter Results X-RAY SPINE CERV 4 [...] agree with e report as now presented. | | [...]
--- OUTSIDE RECORDS SUMMARY | ~2020-03-23 | XMS | Encounter Summary ---
Demographics + + + | Address | [address] | | | [place] [address] | + + + | Home Phone [...] Providers + +------+ + | Care Legal Mediator Name | Role | Phone | + [...] + + | 08/03/ | Refill | [facility] Comprehensive | Alex Sanchez, | Refill Request | | 2018 | | Pain Center at | ,PhD [address] [facility] | (ketamine) | | | | [facility] | [facility] | | | | | [address] | [place], [place] | | | | | Mailcode: CH15P | [address] | | | | | [facility] | [phone] | | | | | and Healing, | | | | | | Building | | | | | | Floor [place], [place] | | | | | | [address] | | | | | | [phone] | | | +--------+--------+ + + + [...]
--- OUTSIDE RECORDS SUMMARY | ~2020-03-23 | XMS | Encounter Summary ---
Demographics + + + | Address | [address] | | | [place] [address] | + + + | Home Phone [...] Team Providers + +------+ + | Care Buckshot Swage Operator Name | Role | Phone | [...] | (ortho question) | | | | [facility] | [facility] | | | | | [address] | [place], [place] | | | | | Mailcode: CH15P | [address] | | | | | [facility] | [phone] | | | | | and Healing, | | | | | | Building | | | | | | [place], [place] | | | | | | [address] | | | | | | [phone] | | | +--------+ + + + [...]
--- OUTSIDE RECORDS SUMMARY | ~2020-03-23 | XMS | Encounter Summary ---
Demographics + + + | Address | [address] | | | [place] [address] | + + + | Home Phone [...] Providers + +------+ + | Care Maintenance Repairer Name | Role | Phone | + +------+ + | Justo Vazquez MD | PCP | | + +------+ + Encounter Details +--------+ + + + + | Date | Type | Department | Care Team | Description | +--------+ + + + + | 01/11/ | Procedure | Diagnostic Imaging | | | | 2016 | Pass | Services at [facility] | | | | | | [address] | | | | | | [address] | | | | | | [facility] | | | | | | [place], [place] | | | | | | [address] | | | | | | [phone] | | | +--------+ + + + [...]
--- OUTSIDE RECORDS SUMMARY | ~2020-03-23 | XMS | Encounter Summary ---
Demographics + + + | Address | [address] | | | [place] [address] | + + + | Home Phone | | + + + | Preferred Language | Unknown | + + + | Marital Status | Single | + + + | Mormonism Affiliation | 1073 | + + + | Race | Unknown | + + + | Ethnic Group | Unknown | + + + Author + + + | Author | [facility] | | | and [place] | + + + | Organization | [facility] | | | and [place] [...] [place] | | | | | [address] | | + + + + + | Bryant Farah | ERICKA | Unknown | | + + + + + Care Team Providers + +------+ + | Care Foundry Laborer Coreroom Name | Role | Phone | + +------+ + PCP | Unavailable | + +------+ + Encounter Details +--------+ + + + + | Date | Type | Department | Care Team | Description | +--------+ + + + + | 09/12/ | Hospital | [facility] | | | | 2008 | Encounter | [facility] | | | | | | CENTER [address] | | | | | | [place], [place] | | | | | | [address] | | | | | | [phone] | | | +--------+ + + + [...]
--- OUTSIDE RECORDS SUMMARY | ~2020-03-23 | XMS | Encounter Summary ---
Demographics + + + | Address | [address] | | | [place] [address] | + + + | Home Phone [...] + +------+ + | Care On Air Host Name | Role | Phone | + +------+ + | Justo Vazquez MD | PCP | | + +------+ + Encounter Details +--------+ + + + + | Date | Type | Department | Care Team | Description | +--------+ + + + + | 12/28/ | Telephone | [facility] | Ilene Bright, | | | 2019 | | Pain Center at | NETWORK DEVELOPMENT COORDINATOR [address] | | | | | [facility] | [place], [place] | | | | | [address] | [address] | | | | | Mailcode: CH15P | [phone] | | | | | [facility] | | | | | | and Healing, | | | | | | | | | | | | Floor [place], [place] | | | | | | [address] | | | | | | [phone] | | | +--------+ + + + [...]
--- OUTSIDE RECORDS SUMMARY | ~2020-03-23 | XMS | Encounter Summary ---
Demographics + + + | Address | [address] | | | [place] [address] | + + + | Home Phone [...] Team Providers + +------+ + | Care Centrifugal Operator Name | Role | Phone | + +------+ + | Justo Vazquez MD | PCP | | + +------+ + Encounter Details +--------+ + + + + | Date | Type | Department | Care Team | Description | +--------+ + + + + | 01/09/ | Documentati | Orthopaedics | Ranjeet Amanda, | | | 2018 | on | [facility] [place] | [address] | | | | | for Health and | [place], [place] | | | | | Healing [address] | [address] | | | | | Ave Mailcode: | [phone] | | | | | [facility] | | | | | | Health and Healing, | | | | | | | | | | | | Floor [place], [place] | | | | | | [address] | | | | | | [phone] | | | +--------+ + + + [...]
--- OUTSIDE RECORDS SUMMARY | ~2020-03-23 | XMS | Encounter Summary ---
Demographics + + + | Address | [address] | | | [place] [address] | + + + | Home Phone [...] Team Providers + +------+ + | Care Component Lab Tech Name | Role | Phone | [...] | [facility] | [address] | | | | | [address] | [place], [place] | | | | | Mailcode: CH15P | [address] | | | | | [facility] | [phone] | | | | | and Healing, | | | | | | Building | | | | | | [place], [place] | | | | | | [address] | | | | | | [phone] | | | +--------+ + + + [...]
--- OUTSIDE RECORDS SUMMARY | ~2020-03-23 | XMS | Encounter Summary ---
Demographics + + + | Address | [address] | | | [place] [address] | + + + | Home Phone [...] Providers + +------+ + | Care Director Digital Sales Name | Role | Phone | + +------+ + | Justo Vazquez MD | PCP | | + +------+ + Encounter Details +--------+ + + + + | Date | Type | Department | Care Team | Description | +--------+ + + + + | 09/20/ | Telephone | [facility] | Ilene Bright, | | | 2017 | | Pain Center at | BRASS PLATER [address] | | | | | [facility] | [place], [place] | | | | | [address] | [address] | | | | | Mailcode: CH15P | [phone] | | | | | [facility] | | | | | | and Healing, | | | | | | | | | | | | Floor [place], [place] | | | | | | [address] | | | | | | [phone] | | | +--------+ + + + [...]
--- OUTSIDE RECORDS SUMMARY | ~2020-03-23 | XMS | Encounter Summary ---
Demographics + + + | Address | [address] | | | [place] [address] | + + + | Home Phone [...] Team Providers + +------+ + | Care Water Pumping Station Engineer Name | Role | Phone | [...] | | | Spasticity | Ave | [facility] [place] | | | | | Procedures | [facility] [place] | [address] | | | | | CONSULT TO | [address] | Phone: | | | | | PAIN | Phone: | [phone] | | | | | MANAGEMENT | [phone] | Fax: | | | | | | Fax: | [phone] | | | | | | [phone] | | +--------+---------+ + + + + [...] | | MD Celia | MD Brendan [address] | | | | | Fibromyalgia | [address] | [address] | | | | | Spasticity | Ave | [address] | | | | | Epigastric | [place], [place] | Rd [place], | | | | | pain | [address] | [place] | | | | | Procedures | Phone: | [phone] | | | | | REQUEST TO | [phone] | Phone: | | | | | SURGERY | Fax: | [phone] | | | | | SCHEDULING MANAGER | [phone] | Fax: | | | | | ID INJECT | | [phone] | | | | | TRIGGER | | | | | | | POINT, 1 [place] | | | | | | | 2 ID INJECT | | | | | | [...] Pain Medicine | Diagnoses | Chasity, | Paint Roller Assembler Chh1 | | | | / Pain | Abdominal | MD Kenny | [address] | | | | Management | pain, | [address] | Ave | | | | | unspecified | [facility] | Mailcode: | | | | | location | Rd | CH15[facility] Center | | | | | Procedures | [place], [place] | for Health | | | | | CONSULT TO | [address] | and Healing, | | | | | PAIN | | Building | | | | | MANAGEMENT | | 1,15th Floor | | | | | | | [place], [place] | | | | | | | [address] | | | | | | | Phone: | | | | | | | [phone] | | | | | | | Fax: | | | | | | | [phone] | +--------+--------+ + + + + Encounter Details +--------+---------+ + + + | Date | Type | Department | Care Team | Description | +--------+---------+ + + + | 10/11/ | Office | [facility] | Vern Robertson, | Epigastric pain | | 2017 | Visit | Pain Center at | SEISMIC COMPUTER [address] | (Primary Dx); | | | | [facility] | [facility] [place] | Spasticity | | | | [address] | [address] | | | | | Mailcode: CH15P | [phone] | | | | | [facility] | | | | | | joana Mack, | | | | | | | | | | | | [place], [place] | | | | | | [address] | | | | | | [phone] | | | +--------+---------+ + + + [...] true warrior! * Please sign up for [place] [employer] Bear[employer]. This is the best way to communicate with me. It will save you time in the long run. The procedure you discussed with your doctor is called: Trigger point injection of abdomina l scar. Please make sure this is scheduled with the Steam Plant Records Clerk. PRE-PROCEDURE INSTRUCTIONS 1. Please bring a equipment driver with you as we may give you medications that impair your ability to drive. This is necessary even if you do not receive sedation. You may take a taxi or ri [employer] if you are accompanied by a responsible [...] phone number for questions or concerns is [phone]. * Consider Lidoderm topical or compound prescription [...] muscle hyper tonicity. * Consider increasing your Gary 3 fats. Gary-3 fats are precursors to mediators of inflammation [...] oil if approved by your PCP or nursing informatics specialist. * Eliminate High Fructose [place] Syrup and Sugar from your diet as [...] review treatment plan. * Follow up with [facility] as needed. It was good to see you today. Thank you for taking the time to see us in the [facility] today. As a reminder, [...] NP - 1 12/11/2016 1:15 PM PST [facility] Return Visit Date: 10/11/2017 Chief Complaint Patient presents with Abdominal pain Back pain Foot pain History of Present Illness: Tracie Farah is a 27 year old female, whose last appoi ntment at the [facility] was 07/11/17 with TERESA [...] She reports multiple diagnostic tests conducted at [facility] in [place], [place] including barium swallow and Hydrogen breath [...] Torodol shots: only form of symptom relief. FIRST HELPER Brief Pain Inventory: (ten= worst possible [...] Hemroidectomy Trial spinal cord stimulator leads 08/02/2012 [facility], Surgeon: Janak Riojas MD Cholecystectomy Appendectomy [...] History Social History Narrative Single. Goes to [employer] with a light load. Has been working at [employer], can' t work on crDinamundoches. Has roommates. Allergies Allergen Reactions Morphine Anaphylaxis [...] by physician. Concentration is 150mg/mL. Compounded by [facility] ) LAMOTRIGINE 200 MG TABLET Take [...] GRAM-5.86 GRAM SOLUTION Take as directed by [facility]- 2 gallon bowel prep POLYETHYLENE GLYCOL [...] reviewed. - Review old medical records (from [facility]). Pertinent findings include: abdominal surger y [...] review treatment plan. * Follow up with [facility] Comprehensive Pain Center as needed. I, Guillermo Michaels, am scribing for Vern Robertson NP on 10/11/2017 I have reviewed and verified the above scribed note of my visit with this patient as record ed by Guillermo Hope. Vern Robertson NP PAIN CENTER AT [facility] 15TH FLOOR [address] [facility] [address] Mail Code: [place] [address] documented in this e ncounter Plan of Treatment Not on filedocumented as of this encounter Visit Diagnoses + + | Diagnosis | + + | Epigastric pain - Primary Abdominal pain, epigastric | + + | Spasticity Abnormal involuntary movements | + + documented in this encounter
--- OUTSIDE RECORDS SUMMARY | ~2020-03-23 | XMS | Encounter Summary ---
Demographics + + + | Address | [address] | | | [place] [address] | + + + | Home Phone [...] Team Providers + +------+ + | Care Paint Coating Machine Operator Name | Role | Phone [...] | | Complex | Alex Alba, | [facility] [address] | | | | | regional | ,PhD [address] | Pavilion | | | | | pain | [address] | [address] | | | | | syndrome | [address] | [address], | | | | | type 1 of | Rd | Basement | | | | | left lower | [place], [place] | [place], [place] | | | | | extremity | [address] | [address] | | | | | Muscle pain | Phone: | Phone: | | | | | Procedures | [phone] | [phone] | | | | | [place] BONE | Fax: | Fax: | | | | | &/OR JOINT | [phone] | [phone] | | | | | IMAGING | [...] | | | | | | | [place] BONE | | | | | | | IMAGING, | | | | | | | LIMITED AREA | | | | | | | [place] BONE | | | | | | | IMAGING | | | | | | | (SPECT) | | | +--------+--------+ + + + + Encounter Details +--------+ + + + + | Date | Type | Department | Care Team | Description | +--------+ + + + + | 12/27/ | Ancillary | [facility] | Alex Sanchez, | | | 2018 | Orders | Pain Center at | ,PhD [address] [facility] | | | | | [facility] | [address] | | | | | [address] | [place], [place] | | | | | Mailcode: CH15P | [address] | | | | | [facility] | [phone] | | | | | and Healing, | | | | | | Building | | | | | | Floor [place], [place] | | | | | | [address] | | | | | | [phone] | | | +--------+ + + + [...]
--- OUTSIDE RECORDS SUMMARY | ~2020-03-23 | XMS | Encounter Summary ---
Demographics + + + | Address | [address] | | | [place] [address] | + + + | Home Phone [...] Team Providers + +------+ + | Care Semiconductor Wafers Marker Name | Role | Phone | [...] | | | regional | [place] | [address] | | | | | pain | FAMILY | Mailstop | | | | | syndrome), | MEDICINE P | [address] | | | | | lower limb | [address] | [place], [place] | | | | | Gait | [place], | [address] | | | | | disturbance | [place] [address] | Phone: | | | | | Muscle pain | Phone: | [phone] | | | | | Procedures | [phone] | Fax: | | | | | REQUEST TO | Fax: | [phone] | | | | | SURGERY | [phone] | | | | | | WHEELCHAIR RENTAL CLERK | | | +--------+--------+ + + + + Encounter Details +--------+ + + + + | Date | Type | Department | Care Team | Description | +--------+ + + + + | 03/01/ | Procedure | Pain Center at [facility] | Dale Cantu, | Foot pain (left); | | 2011 | | [address] | [address] | Procedure | | | | Mailcode: CH15P | [address] | | | | | [facility] | [place], [place] | | | | | and [place], | [address] | | | | | | [phone] | | | | | Floor [place], [place] | | | | | | [address] | | | | | | [phone] | | | +--------+ + + + [...] migh t be different from the original. [facility] Patient Instructions - Post Interventional Procedure Date: 03/01/2012 Name: Tracie Farah Date of : 1990 Procedure Performed: LUMBAR SYMPATHETIC BLOCK. Procedure Provider: Dale Cantu If you have any problems you believe are associated with your procedure tonight, Please call the Hospital Analysis Consultant, and ask for the Pain Management Consu ltant. If you have problems or questions between 9:00 am and 4:00 pm, Please call the [facility] Nurse Triage Line, . If you go [...] to the larry ent. LAKEISHA HERRING MD [facility] Center documented in this encounter Progress Notes Dale Cantu MD - 03/01/2012 2:21 PM PDTI was present for the entire procedure (lumbar sympathetic block) and all bocanegra elements of this visit. I reviewed the documentation of the other CREMATORY ATTENDANT providers and concur with Dr. Herring's findings. [...] benefit from multidisciplinary treatment. DALE CANTU MD Gambling Supervisor, [facility] Pain Center Repeater Operator, Pain Medicine Professor, Anesthesiology & Perioperative Medicine NAEiDiana scott RN - 03/01/2012 1:35 PM PDT PRE-SEDATION: Date: March 01, 2012 Tracie Farah [id number] 1990 ALLERGIES: Morphine Previous reaction to Sedation/Analgesia: MEDICATIONS: Current Outpatient Prescriptions Medication DULoxetine (CYMBALTA) 30 mg Oral Capsule, Delayed Release(E.C.) HYDROcodone-acetaminophen (NORCO) 10-325 mg Oral Tablet levonorgestrel (MIRENA) 20 mcg/24 hr Intrauterine IUD LORazepam 1 mg Oral Tablet promethazine 25 mg Oral Tablet Meets NPO Guidelines. IV ACCESS: IV in Place IV Start Time 24423, 22g, DRH BASELINE VS: See Sedation Flow Sheet. Tracie Farah [id number] 1990, presents to clinic for: Procedure: Lumbar [...] ml. 1344: Procedure complete. Pt returned to gorman 1 per eva in stable condiotion. IV dc'd. Cece Arreola [...] OPERATIVE NOTE Date: March 01, 2012 Location: [facility] Procedure Room Tracie Donaldson [facility] [id number] :1990, presents to clinic for: PROCEDURE: Lumbar sympathetic block LEVEL/LATERALITY: left L3 PRE-OPERATIVE DIAGNOSIS: 355.71B CRPS (complex regional pain syndrome), lower limb 719.46 Pain in joint, lower leg POST-OPERATIVE DIAGNOSIS: 355.71B CRPS (complex regional pain syndrome), lower limb 719.46 Pain in joint, lower leg ATTENDING PHYSICIAN: Dale Cantu STEEL SASH ERECTOR: Fellow Lakeisha Herring MD ANESTHESIA: sedation delivered [...] sedation. Ms. Farah was escorted to the [facility] Procedure Ro om, where she was [...] Ms. Farah was transported to the [facility] Pain Center post-procedure recovery area where [...] block. Images were saved, and sent to [employer]. Ms. Farah will have her next appointment [...] + +--------+ + + + | UT INJECT NERV | Routin | 03/01/2012 | CRPS (complex | | | BLCK,PARAVERT | e | 2:20 PM | regional pain | | | SYMPATH | | PDT | syndrome), lower | | | | | | limb Pain in joint, | | | | | | lower leg | | + +--------+ + + + | UT LOCM 100-199 | Routin | 03/01/2012 | CRPS (complex | | | MG/MLICON | e | 1:53 PM | regional pain | | | | | PDT | syndrome), lower | | | | | | limb Pain in joint, | | | | | | lower leg | | + +--------+ + + + | UT INJ BUPIVACAINE | Routin | 03/01/2012 | [...]
--- OUTSIDE RECORDS SUMMARY | ~2020-03-23 | XMS | Encounter Summary ---
Demographics + + + | Address | [address] | | | [place] [address] | + + + | Home Phone [...] Phone | + + +---------+ + | Ptaricia Colin | ECON | Unknown | | + + +---------+ + Care Team Providers + +------+ + | Care Roof Slater Name | Role | Phone | + [...] + + | 09/15/ | Telephone | KEVIN Odom | Alex Sanchez, | Question | | 2018 | | Pain Center at | ,PhD [address] [facility] | | | | | [facility] | [address] | | | | | [address] | [facility] [place] | | | | | Mailcode: CH15P | [address] | | | | | [facility] | [phone] | | | | | and [place], | | | | | | Building | | | | | | [place], [place] | | | | | | [address] | | | | | | [phone] | | | +--------+ + + + [...]
--- OUTSIDE RECORDS SUMMARY | ~2020-03-23 | XMS | Encounter Summary ---
Demographics + + + | Address | [address] | | | [place] [address] | + + + | Home Phone [...] Team Providers + +------+ + | Care Cement Side Laster Name | Role | Phone | + +------+ + | Justo Vazquez MD | PCP | | + +------+ + Encounter Details +--------+ + + + + | Date | Type | Department | Care Team | Description | +--------+ + + + + | 03/12/ | Manager Of Program | [facility] Comprehensive | Alex Sanchez, | Complex regional | | 2019 | | Pain Center at | ,PhD [address] [facility] | pain syndrome type 1 | | | | [facility] | [address] | of left lower | | | | [address] | [place], [place] | extremity; S/P | | | | Mailcode: CH15P | [address] | insertion of spinal | | | | [place] for [place] [facility] | [phone] | cord stimulator | | | | and Healing, | | | | | | Building | | | | | | Floor [place], [place] | | | | | | [address] | | | | | | [phone] | | | +--------+ + + + [...]
--- OUTSIDE RECORDS SUMMARY | ~2020-03-23 | XMS | Encounter Summary ---
Demographics + + + | Address | [address] | | | [place] [address] | + + + | Home Phone [...] Team Providers + +------+ + | Care Compounding Pharmacy Technician Name | Role | Phone [...] | | | | | type | [address] | and Healing, | | | | | Procedures | | Building 2 | | | | | CONSULT TO | | [place], [place] | | | | | GI PROCEDURE | | [address] | | | | | UNIT: | | Phone: | | | | | ANORECTAL | | [phone] | | | | | MANOMETRY | | Fax: | | | | | [place] ANAL | | [phone] | | | | | PRESSURE | | | | | | | RECORD | | | +--------+--------+ + + + + Encounter Details +--------+ + + + + | Date | Type | Department | Care Team | Description | +--------+ + + + + | 09/14/ | Hospital | [facility] | Nurse, Gip [address] | | | 2016 | Encounter | [facility] [address] | [address] [facility] | | | | | [address] Mailcode: | Road [facility] [place] | | | | | [address] for | [address] | | | | | Health and Healing, | | | | | | Building 2 | | | | | | [place], [place] | | | | | | [address] | | | | | | [phone] | | | +--------+ + + + [...]
--- OUTSIDE RECORDS SUMMARY | ~2020-03-23 | XMS | Encounter Summary ---
Demographics + + + | Address | [address] | | | [place] [address] | + + + | Home Phone [...] Team Providers + +------+ + | Care Employment Attorney Name | Role | Phone | [...] 2017 | | Pain Center at | EXERCISER [address] | | | | | [facility] | [place], [place] | | | | | [address] | [address] | | | | | Mailcode: CH15P | [phone] | | | | | [facility] | | | | | | and Healing, | | | | | | | | | | | | Floor [place], [place] | | | | | | [address] | | | | | | [phone] | | | +--------+ + + + [...]
--- OUTSIDE RECORDS SUMMARY | ~2020-03-23 | XMS | Encounter Summary ---
Demographics + + + | Address | [address] | | | [place] [address] | + + + | Home Phone [...] Providers + +------+ + | Care Clinical Quality Assurance Specialist Name | Role | Phone | + +------+ + | Justo Vazquez MD | PCP | | + +------+ + Encounter Details +--------+ + + + + | Date | Type | Department | Care Team | Description | +--------+ + + + + | 03/16/ | Telephone | Digestive Health | Crys Gomez, | | | 2016 | | [place] at [facility] [address] | [address] | | | | | [address] | [address] | | | | | Mailcode: Center | [place], [place] | | | | | [facility] and | [address] | | | | | [facility], [facility] 2 | [phone] | | | | | [place], [place] | | | | | | [address] | | | | | | [phone] | | | +--------+ + + + [...]
--- OUTSIDE RECORDS SUMMARY | ~2020-03-23 | XMS | Encounter Summary ---
Demographics + + + | Address | [address] | | | [place] [address] | + + + | Home Phone [...] Team Providers + +------+ + | Care Cytotechnologist Supervisor Name | Role | Phone | [...] | Complex | Alex Alba, | [facility] [address] | | | | | regional | ,PhD [address] | Pavilion | | | | | pain | [address] | [address] | | | | | syndrome | [address] | [address], | | | | | type 1 of | Rd | Basement | | | | | left lower | [place], [place] | [place], [place] | | | | | extremity | [address] | [address] | | | | | Muscle pain | Phone: | Phone: | | | | | Procedures | [phone] | [phone] | | | | | NM BONE | Fax: | Fax: | | | | | &/OR JOINT | [phone] | [phone] | | | | | IMAGING | [...] | | | | | | [place] BONE | | | | | | | IMAGING, | | | | | | | LIMITED AREA | | | | | | | [place] BONE | | | | | | | IMAGING | | | | | | | (SPECT) | | | +--------+--------+ + + + + Encounter Details +--------+ + + + + | Date | Type | Department | Care Team | Description | +--------+ + + + + | 12/27/ | Ancillary | [facility] | Alex Sanchez, | | | 2018 | Orders | Pain Center at | ,PhD [address] [facility] | | | | | [facility] | [address] | | | | | [address] | [place], [place] | | | | | Mailcode: CH15P | [address] | | | | | [facility] | [phone] | | | | | and Healing, | | | | | | Building | | | | | | Floor [place], [place] | | | | | | [address] | | | | | | [phone] | | | +--------+ + + + [...]
--- OUTSIDE RECORDS SUMMARY | ~2020-03-23 | XMS | Encounter Summary ---
Demographics + + + | Address | [address] | | | [place] [address] | + + + | Home Phone [...] Team Providers + +------+ + | Care Double Bass Player Name | Role | Phone | [...] | Ilene Bright, | Question | | 2017 | | Pain Center at | REINFORCING BAR SETTER [address] | | | | | [facility] | [place], [place] | | | | | [address] | [address] | | | | | Mailcode: CH15P | [phone] | | | | | [facility] | | | | | | joana Mack, | | | | | | Building | | | | | | [place], [place] | | | | | | [address] | | | | | | [phone] | | | +--------+ + + + [...]
--- OUTSIDE RECORDS SUMMARY | ~2020-03-23 | XMS | Encounter Summary ---
Demographics + + + | Address | [address] | | | [place] [address] | + + + | Home Phone [...] Team Providers + +------+ + | Care Van Loader Name | Role | Phone | + +------+ + | Justo Vazquez MD | PCP | | + +------+ + Encounter Details +--------+ + + + + | Date | Type | Department | Care Team | Description | +--------+ + + + + | 03/16/ | Telephone | Dig[facility]ive Health | Crys Gomez, | | | 2016 | | [place] at [facility] [address] | [address] | | | | | [address] | [address] | | | | | Mailcode: Center | [place], [place] | | | | | [facility] and | [address] | | | | | [facility], [facility] 2 | [phone] | | | | | [place], [place] | | | | | | [address] | | | | | | [phone] | | | +--------+ + + + [...]
--- OUTSIDE RECORDS SUMMARY | ~2020-03-23 | XMS | Encounter Summary ---
Demographics + + + | Address | [address] | | | [place] [address] | + + + | Home Phone [...] Team Providers + +------+ + | Care Biometric Technician Name | Role | Phone | [...] + + | 10/30/ | Refill | [facility] Comprehensive | Alex Sanchez, | Refill Request | | 2018 | | Pain Center at | ,PhD [address] [facility] | | | | | [facility] | [address] | | | | | [address] | [place], [place] | | | | | Mailcode: CH15P | [address] | | | | | [facility] | [phone] | | | | | and [place], | | | | | | Building | | | | | | Floor [facility] [place] | | | | | | [address] | | | | | | [phone] | | | +--------+--------+ + + + [...]
--- OUTSIDE RECORDS SUMMARY | ~2020-03-23 | XMS | Encounter Summary ---
Demographics + + + | Address | [address] | | | [place] [address] | + + + | Home Phone | | + + + | Preferred Language | Unknown | + + + | Marital Status | Single | + + + | Mormon Affiliation | 1073 | + + + | Race | Unknown | + + + | Ethnic Group | Unknown | + + + Author + + + | Author | [facility] | | | and [place] | + + + | Organization | [facility] | | | and [place] [...] [place] | | | | | [address] | | + + + + + | Bryant Farah | ECON | Unknown | | + + + + + Care Team Providers + +------+ + | Care Senior Quality Manager Name | Role | Phone | + +------+ + PCP | Unavailable | + +------+ + Encounter Details +--------+ + + + + | Date | Type | Department | Care Team | Description | +--------+ + + + + | 03/16/ | Hospital | [facility] | Conversion | Back pain | | 2013 | Encounter | CONVERSION [address] | Transaction, | | | | | [address] | Provider Unknown | | | | | [place], [place] | [phone] | | | | | [address] | | | | | | [phone] | | | +--------+ + + + [...]
--- OUTSIDE RECORDS SUMMARY | ~2020-03-23 | XMS | Encounter Summary ---
Demographics + + + | Address | [address] | | | [place] [address] | + + + | Home Phone [...] Providers + +------+ + | Care Hand Printed Circuit Board Assembler Name | Role | Phone | [...] Rd | | | | | | [place], [place] | | | | | | [address] | | | +--------+ + + + [...]
--- OUTSIDE RECORDS SUMMARY | ~2020-03-23 | XMS | Encounter Summary ---
Demographics + + + | Address | [address] | | | [place] [address] | + + + | Home Phone [...] Team Providers + +------+ + | Care Bottle Filler Name | Role | Phone | [...] + + | 08/07/ | Refill | [facility] Comprehensive | Alex Sanchez, | Refill Request | | 2018 | | Pain Center at | ,PhD [address] | | | | | [facility] | [address] | | | | | [address] | [place], [place] | | | | | Mailcode: CH15P | [address] | | | | | [facility] | [phone] | | | | | and [place], | | | | | | Building | | | | | | Floor [place], [place] | | | | | | [address] | | | | | | [phone] | | | +--------+--------+ + + + [...]
--- OUTSIDE RECORDS SUMMARY | ~2020-03-23 | XMS | Encounter Summary ---
Demographics + + + | Address | [address] | | | [place] [address] | + + + | Home Phone [...] Team Providers + +------+ + | Care Word Processing Specialist Name | Role | Phone | + +------+ + | Justo Vazquez MD | PCP | | + +------+ + Encounter Details +--------+ + + + + | Date | Type | Department | Care Team | Description | +--------+ + + + + | 07/30/ | Telephone | [facility] | Alex Sanchez, | | | 2019 | | Pain Center at | ,PhD [address] | | | | | [facility] | [facility] | | | | | [address] | [facility] [place] | | | | | Mailcode: CH15P | [address] | | | | | [place] for [facility] | [phone] | | | | | and Healing, | | | | | | | | | | | | Floor [place], [place] | | | | | | [address] | | | | | | [phone] | | | +--------+ + + + [...]
--- OUTSIDE RECORDS SUMMARY | ~2020-03-23 | XMS | Encounter Summary ---
Demographics + + + | Address | [address] | | | [place] [address] | + + + | Home Phone [...] Providers + +------+ + | Care Dye Tub Operator Name | Role | Phone | [...] Medical Records | | 2017 | | [place] [id number] | | Review | | | | [address] | | | | | | Mailcode: [place] | | | | | | and | | | | | | [facility] 2 | | | | | | [place], [place] | | | | | | [address] | | | | | | [phone] | | | +--------+ + + + [...]
--- OUTSIDE RECORDS SUMMARY | ~2020-03-23 | XMS | Encounter Summary ---
Demographics + + + | Address | [address] | | | [place] [address] | + + + | Home Phone [...] Team Providers + +------+ + | Care Motorboat Mechanic Helper Name | Role | Phone | + +------+ + | Justo Vazquez MD | PCP | | + +------+ + Encounter Details +--------+ + + + + | Date | Type | Department | Care Team | Description | +--------+ + + + + | 03/11/ | Telephone | [facility] | Zeeshan Mahoney MD | | | 2019 | | Pain Center at | [address] | | | | | [facility] | Giuliana Maldonado [place], | | | | | [address] | [place] [address] | | | | | Mailcode: CH15P | [phone] | | | | | [facility] | | | | | | and Healing, | | | | | | | | | | | | [place], [place] | | | | | | [address] | | | | | | [phone] | | | +--------+ + + + [...]
--- OUTSIDE RECORDS SUMMARY | ~2020-03-23 | XMS | Encounter Summary ---
Demographics + + + | Address | [address] | | | [place] [address] | + + + | Home Phone [...] + +------+ + | Care Technical Marketing Consultant Name | Role | Phone | [...] | | | regional | [place] | [address] | | | | | pain | FAMILY | Mailstop | | | | | syndrome), | MEDICINE P | 5[address]42 | | | | | lower limb | [address] | [place], [place] | | | | | Pain in | [place], | [address] | | | | | joint, lower | [place] [address] | Phone: | | | | | leg | Phone: | [phone] | | | | | Procedures | [phone] | Fax: | | | | | REQUEST TO | Fax: | [phone] | | | | | SURGERY | [phone] | | | | | | ORDER DISPATCHER CHIEF | | | +--------+--------+ + + + + Encounter Details +--------+ + + + + | Date | Type | Department | Care Team | Description | +--------+ + + + + | 08/02/ | Procedure | Pain Center at [facility] | Dale Cantu, | Procedure; | | 2011 | | [address] | [address] [facility] | Injection; Procedure | | | | Mailcode: CH15P | [facility] 947355 | | | | | [facility] | [place], [place] | | | | | and Martina, | [address] | | | | | [facility] | [phone] | | | | | Floor [place], [place] | | | | | | [address] | | | | | | [phone] | | | +--------+ + + + [...] this encounter Patient Instructions Patient Instructions KristaBear manriquez Bren, DO - 08/02/2012 6:34 AM PDTFormatting of this not e might be different from the original. [facility] Patient Instructions - Post Spinal Cord Stimulator Trial Date: 08/02/2012 Name: Tracie Farah Date of : 1990 Procedure Performed: SCS TRIAL LUMBAR [facility] Procedure Provider: Dale Cantu [facility] Procedure Rm If you have any problems you believe are associated with your procedure tonight, Please call the Hospital Can Cutter, and ask for the Pain Management Consu ltant. If you have problems or questions between 9:00 am and 4:00 pm, Please call the [facility] Nurse Triage Line, . If you go to an Emergency Room, please bring this form with you. DISCHARGE INSTRUCTIONS Call immediately and/or go to the Emergency department if any concerns about wound healing, fever, or chills. Also call for concerns about SCS function. During [facility] open hours, call the [facility] ([phone]), after hours call the impregnation operator at [facility] ([phone]) and ask for t Adult Pain Service stone spreader operator. Identify yourself as a Comprehensive Pain [...] the wounds, dressing, or SCS function. During ORTHOTIC FITTER o pen hours, call the ORTHOTIC FITTER ([phone]), after hours call the impregnation operator at [facility] ([phone] ) and ask for the Adult Pain Service stone spreader operator. Identify yourself as my patient with a concer n about postoperative recovery. If there are concerns about the SCS programming, contact t he fundraising sale representative from the SCS group managing director. If the stimulation is not covering your area o f pain, your SCS should be reprogrammed. Do not take any blood thinning medications during the trial. Instructions printed and reviewed with the patient. Copy of instructions given to Pj Nemo víctor. DALE CANTU MD [facility] documented in this [...] and postoperative care instructions. DALE CANTU MD Industrial Safety And Health Technician, [facility] Certified Medical Asst, Pain Medicine Professor, Anesthesiology & Perioperative Medicine Diana Arroyo RN - 08/02/2012 7:34 AM PDT PRE-SEDATION: Date: August 02, 2012 Tracie Farah [id number] 1990 ALLERGIES: Morphine Previous reaction to Sedation/Analgesia: MEDICATIONS: Current Outpatient Prescriptions Medication HYDROcodone-acetaminophen (NORCO) 10-325 mg Oral Tablet KETOROLAC TROMETHAMINE (TORADOL IM) levonorgestrel (MIRENA) 20 mcg/24 hr Intrauterine IUD LORazepam 1 mg Oral Tablet ondansetron (ZOFRAN) 8 mg Oral Tablet promethazine 25 mg Oral Tablet Meets NPO Guidelines. IV ACCESS: IV in Place IV Site [facility] 22 g @ 0655 BASELINE VS: See Sedation Flow Sheet. Tracie Donaldson [facility] [id number] 1990, presents to clinic for: Procedure: Spinal [...] 0732 - 0733: [place]azol[place] 2 [place] [address]: Fentanyl 25 mcg IV 0740 - 0741: Midazolam 2 mg IV 0742: Procedure started 0743 - 0744: Fentanyl 50 mcg IV 0753-54: Fentanyl 25 mcg IV Lead # 1 placed Lead # 2 placed 0801: Stimulation started. 0829: Pt reports stimulation to usual areas of pain. Leads secured. 0845: Pt returned to [facility] per man in stable condition. IV dc'd. IssaEvelia - 0 08/02/2012 6:40 AM PDTCMA History: 1. Has [...] Bear Ward DO - 08/02/2012 6:35 AM RIANNAPROVICHIOMA OPERATIVE NOTE Date: August 02, 2012 Location: [facility] Procedure Room Tracie Farah [id number] :1990, presents to clinic for: PROCEDURE: Spinal Cord Stimuation Trial LEVEL/LATERALITY: midline lumbar PRE-OPERATIVE DIAGNOSIS: 355.71B CRPS (complex regional pain syndrome), lower limb 719.46 Pain in joint, lower leg 781.2Q Gait disturbance POST-OPERATIVE DIAGNOSIS: 355.71B CRPS (complex regional pain syndrome), lower limb 719.46 Pain in joint, lower leg 781.2Q Gait disturbance ATTENDING PHYSICIAN: Dale Cantu MD COMMAND AND CONTROL SYSTEMS INTEGRATOR: Fellow Bear Yost DO ANESTHESIA: sedation delivered [...] sedation. Ms. Farah was escorted to the [facility] Procedure Ro om, where she was positioned Prone on the examination table. TEAM PAUSE: The physician-led pause was conducted, and is documented in the Nursing note. Monitors were placed, including ECG, NIBP and SpO2. The skin was prepared with Chloroprep and sterile drapes were applied. [facility][pecialists system was used for this procedure. The company fundraising sale representative was theresa knutson for the procedure. [...] pain. Ms. Farah was transported to the [facility] Comprehensive Pain Center post-procedure recovery area where she made an uneventful recovery. Images were saved, and sent to [employer]. Ms. Farah will have her next appointment [...] about wound healing or SCS function. During [facility] open hours, call the [facility] ([phone]), after h ours call the impregnation operator at [facility] ([phone]) and ask for the Adult Pain Service stone spreader operator. Identify yourself as my patient with [...] + +--------+ + + + | IN PERCUT IMPLNT | Routin | 08/03/2012 | [...]
--- OUTSIDE RECORDS SUMMARY | ~2020-03-23 | XMS | Encounter Summary ---
Demographics + + + | Address | [address] | | | [place] [address] | + + + | Home Phone [...] Team Providers + +------+ + | Care Embroidery Specialist Name | Role | Phone | [...] Vomiting; | | 2016 | | Center at [facility] [address] | | Constipation; | | | | [address] | | Abdominal pain | | | | Mailcode: Center | | | | | | for Health and | | | | | | Healing, Building 2 | | | | | | [place], [place] | | | | | | [address] | | | | | | [phone] | | | +--------+ + + + [...]
--- OUTSIDE RECORDS SUMMARY | ~2020-03-23 | XMS | Encounter Summary ---
Demographics + + + | Address | [address] | | | [place] [address] | + + + | Home Phone [...] Team Providers + +------+ + | Care Slab Installer Name | Role | Phone | + +------+ + | Allegra Gandhi | PCP | | + +------+ + Encounter Details +--------+ + + + + | Date | Type | Department | Care Team | Description | +--------+ + + + + | 08/02/ | Results | [facility] | Janak Riojas, | | | 2011 | Only | Pain Center at | MD [address] [facility] | | | | | [facility] | [facility] [id number] | | | | | [address] | [place], [place] | | | | | Mailcode: CH15 | [address] | | | | | [place] for [facility] | [phone] | | | | | and Martina, | | | | | | | | | | | | Floor [place], [place] | | | | | | [address] | | | | | | [phone] | | | +--------+ + + + [...]
--- OUTSIDE RECORDS SUMMARY | ~2020-03-23 | XMS | Encounter Summary ---
Demographics + + + | Address | [address] | | | [place] [address] | + + + | Home Phone [...] Providers + +------+ + | Care Stock Buyer Name | Role | Phone | + [...] | | | | regional | ,PhD [address] | | | | | | pain | [address] | | | | | | syndrome | [address] | | | | | | type [address] of | Rd | | | | | | left lower | [place], [place] | | | | | | extremity | [address] | | | | | | Procedures | Phone: | | | | | | PHYSICAL | [phone] | | | | | | THERAPY | Fax: | | | | | | REFERRAL | [phone] | | +--------+--------+ + + + + Encounter Details +--------+ + + + + | Date | Type | Department | Care Team | Description | +--------+ + + + + | 01/22/ | Telephone | [facility] | Alex Sanchez, | | | 2019 | | Pain Center at | ,PhD [address] [facility] | | | | | [facility] | [facility] | | | | | [address] | [place], [place] | | | | | Mailcode: CH15P | [address] | | | | | [facility] | [phone] | | | | | and Healing, | | | | | | | | | | | | [place], [place] | | | | | | [address] | | | | | | [phone] | | | +--------+ + + + [...]
--- OUTSIDE RECORDS SUMMARY | ~2020-03-23 | XMS | Encounter Summary ---
Demographics + + + | Address | [address] | | | [place] [address] | + + + | Home Phone [...] Team Providers + +------+ + | Care Livestock Feeder Name | Role | Phone | [...] Oliveira | | 2011 | IP | [address] | | House - Approved | | | | Giuliana Maldonado [place], | | | | | | [place] [address] | | | +--------+ + + + [...]
--- OUTSIDE RECORDS SUMMARY | ~2020-03-23 | XMS | Encounter Summary ---
Demographics + + + | Address | [address] | | | [place] [address] | + + + | Home Phone [...] Team Providers + +------+ + | Care Electrician Manager Name | Role | Phone | [...] 2016 | | Center at [facility] [address] | | Constipation; | | | | [address] | | Abdominal pain | | | | Mailcode: Center | | | | | | for Health and | | | | | | Healing, Building [address] | | | | | | [place], [place] | | | | | | [address] | | | | | | [phone] | | | +--------+ + + + [...]
--- OUTSIDE RECORDS SUMMARY | ~2020-03-23 | XMS | Encounter Summary ---
Demographics + + + | Address | [address] | | | [place] [address] | + + + | Home Phone [...] Team Providers + +------+ + | Care Pharmacy Messenger Name | Role | Phone | [...] | | | | | constipation | [place], [place] | for Health | | | | | type | [address] | and Healing, | | | | | Abdominal | | Building [address] | | | | | pain, | | [place], [place] | | | | | unspecified | | [address] | | | | | location | | Phone: | | | | | Procedures | | [phone] | | | | | CONSULT TO | | Fax: | | | | | GI PROCEDURE | | [phone] | | | | | UNIT: | | | | | | | COLONOSCOPY | | | | | | | [place] | | | | | | | [...] | 2015 | | Center at [facility] [address] | MD Melissa | Vomiting (Bile) | | | | [address] | | | | | | Mailcode: Center | | | | | | for Health and | | | | | | Healing, Building [address] | | | | | | [place], [place] | | | | | | [address] | | | | | | [phone] | | | +--------+ + + + [...]
--- OUTSIDE RECORDS SUMMARY | ~2020-03-23 | XMS | Encounter Summary ---
Demographics + + + | Address | [address] | | | [place] [address] | + + + | Home Phone [...] Team Providers + +------+ + | Care Second Helper Name | Role | Phone | [...] | | | 2019 | Event | [facility] | MD Juan [address] | | | | | and Healing Surgery | [address] | | | | | Center Admitting | [place], [place] | | | | | Desk Located on the | [address] | | | | | 4th floor [address] | [phone] | | | | | [address] [place], | | | | | | [place] [address] | Arben Valerio MD | | | | | | [address] | | | | | | [address] | | | | | | [place], [place] | | | | | | [address] | | | | | | [phone] | | | | | | | [...]
--- OUTSIDE RECORDS SUMMARY | ~2020-03-23 | XMS | Encounter Summary ---
Demographics + + + | Address | [address] | | | [place] [address] | + + + | Home Phone [...] Team Providers + +------+ + | Care Freelance Makeup Artist Name | Role | Phone | + +------+ + | Justo Vazquez MD | PCP | | + +------+ + Encounter Details +--------+ + + + + | Date | Type | Department | Care Team | Description | +--------+ + + + + | 01/31/ | Documentati | Vascular Access at | [place], | | | 2017 | on | [facility] [address] | Maru RN [address] | | | | | [address] | [address] | | | | | [facility] | [place], [place] | | | | | [place], [place] | [address] | | | | | [address] | | | | | | [phone] | | | +--------+ + + + [...]
--- OUTSIDE RECORDS SUMMARY | ~2020-03-23 | XMS | Encounter Summary ---
Demographics + + + | Address | [address] | | | [place] [address] | + + + | Home Phone [...] Team Providers + +------+ + | Care Dealer Sales Rep Name | Role | Phone | [...] | | | sympathetic | [place] | [address]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 | FAMILY | [address] | | | | | of lower | MEDICINE P | [id number] | | | | | limb | [address] | [place], [place] | | | | | | [place], | [address] | | | | | | [place] [address] | Phone: | | | | | | Phone: | [phone] | | | | | | [phone] | Fax: | | | | | | Fax: | [phone] | | | | | | [phone] | | +--------+--------+ + + + + Encounter Details +--------+---------+ + + + | Date | Type | Department | Care Team | Description | +--------+---------+ + + + | 03/17/ | Office | [facility] | Dale Cantu, | CRPS (complex | | 2011 | Visit | Pain Center at | [address] | regional pain | | | | [place] | [address] [id number] | syndrome), lower | | | | [address] | [place], [place] | limb; Adjustment | | | | Mailcode: CH15 | [address] | reaction; Muscle | | | | [facility] | [phone] | pain; Gait | | | | and Healing, | | disturbance | | | | Building | | | | | | Floor [place], [place] | | | | | | [address] | | | | | | [phone] | | | +--------+---------+ + + + [...] Pain: After Your Visit", log into your InvitedHome nt at [email or web address]. You can enter G828 in the [employer] Library" search box. Not on Signdathart? Review the MyChart section of your After Visit Summary for directions on liz rea to sign up. 5989-7092 [employer]. Care instructions adapted under license by [facility]. This care instruction is for use with your licensed healthcar e professional. If you have questions about a medical condition or this instruction, always ask your healthcare professional. [employer] disclaims any warranty or liabili ty for your use of this information. Content Version: 9.2.502981; Last Revised: April 29, 2011 Nortriptyline for [...] Pain: After Your Visit", log into your InvitedHome nt at [email or web address]. You can enter G828 in the [employer] Library" search box. Not on School Places? Review the Signdathart section of your After Visit Summary for directions on ho w to sign up. 9579-3241 [employer]. Care instructions adapted under license by [facility] [employer] [place]. This care instruction is for use with your licensed healthcar e professional. If you have questions about a medical condition or this instruction, always ask your healthcare professional. [employer] disclaims any warranty or liabili ty for your use of this information. Content Version: 9.2.915818; Last Revised: April 29, 2011 documented in [...] documented in our notes. DALE CANTU MD Office Rn, [facility] Humid System Operator, Pain Medicine Professor, Anesthesiology & Perioperative Medicine NAMollMarquis manriquez MD - 03/17/2012 3:42 PM PDT [facility] Comprehensive Pain Center Return Visit [...] her pain. She continues to take 6-8 Ovid per day and 600 mg of ibuprofen [...] and a pain drawing which I reviewed. [facility] Brief Pain Inventory: (ten= worst possible [...] The Review of Systems obtained by the [facility] was reviewed. Additional Review of Systems: Bones, [...] Plan: 1. Continue working with Dr. Goldie Feldamn in pain psychology and Guillermo Sanon with [...] you require any medication refills today? no TERMITE CONTROL TECHNICIAN ROS: 1. Bones, Joints, and Muscles: cramps [...]
--- OUTSIDE RECORDS SUMMARY | ~2020-03-23 | XMS | Encounter Summary ---
Demographics + + + | Address | [address] | | | [place] [address] | + + + | Home Phone [...] Providers + +------+ + | Care Manager Star Name | Role | Phone | + [...] + + | 03// | Telephone | [facility] | Alex Sanchez, | Medication (clarify | | 2018 | | Pain Center at | ,PhD [address] | sig on Ketamine) | | | | [facility]Note 2[facility] | [facility] | | | | | [address] | [place], [place] | | | | | Mailcode: CH15P | [address] | | | | | [facility] | [phone] | | | | | and Healing, | | | | | | Building | | | | | | Floor [place], [place] | | | | | | [address] | | | | | | [phone] | | | +--------+ + + + [...]
--- OUTSIDE RECORDS SUMMARY | ~2020-03-23 | XMS | Encounter Summary ---
Demographics + + + | Address | [address] | | | [place] [address] | + + + | Home Phone [...] | 2015 | Encounter | Center at [facility] [address] | MD Melissa | | | | | [address] | | | | | | Mailcode: [place] | | | | | | [facility] and | | | | | | [address], [address] | | | | | | [place], [place] | | | | | | [address] | | | | | | [phone] | | | +--------+ + + + [...]
--- OUTSIDE RECORDS SUMMARY | ~2020-03-23 | XMS | Encounter Summary ---
Demographics + + + | Address | [address] | | | [place] [address] | + + + | Home Phone [...] Team Providers + +------+ + | Care Antique Collector Name | Role | Phone | [...] info ) | | 2016 | | [place] [facility] [address] | MD Melissa | | | | | [address] | | | | | | Mailcode: [place] | | | | | | for Health and | | | | | | [facility], [facility] 2 | | | | | | [place], [place] | | | | | | [address] | | | | | | [phone] | | | +--------+ + + + [...]
--- OUTSIDE RECORDS SUMMARY | ~2020-03-23 | XMS | Encounter Summary ---
Demographics + + + | Address | [address] | | | [place] [address] | + + + | Home Phone [...] Team Providers + +------+ + | Care Baker Laboratory Name | Role | Phone | + [...] 2016 | | Pain Center at | BRASS AND WIND INSTRUMENT REPAIRER [address] | | | | | [facility] | [place], [place] | | | | | [address] | [address] | | | | | Mailcode: CH15P | [phone] | | | | | [facility] | | | | | | joana Mack, | | | | | | Building | | | | | | [place], [place] | | | | | | [address] | | | | | | [phone] | | | +--------+ + + + [...]
--- OUTSIDE RECORDS SUMMARY | ~2020-03-23 | XMS | Encounter Summary ---
Demographics + + + | Address | [address] | | | [place] [address] | + + + | Home Phone [...] Providers + +------+ + | Care Registered Respiratory Therapist Name | Role | Phone | [...] | | | | | constipation | [facility] [place] | for Health | | | | | type | [address] | and Healing, | | | | | Procedures | | [address] | | | | | CONSULT TO | | [place], [place] | | | | | GI PROCEDURE | | [address] | | | | | UNIT: | | Phone: | | | | | ANORECTAL | | [phone] | | | | | MANOMETRY | | Fax: | | | | | CO ANAL | | [phone] | | | | | PRESSURE | | | | | | | RECORD | | | +--------+--------+ + + + + Encounter Details +--------+ + + + + | Date | Type | Department | Care Team | Description | +--------+ + + + + | 09/14/ | Hospital | [facility] | Nurse, Gip [address] | | | 2016 | Encounter | [place] [address] | [address] [facility] | | | | | [address] Mailcode: | Road [facility] [place] | | | | | [address] for | [address] | | | | | Health and Healing, | | | | | | Building [address] | | | | | | [place], [place] | | | | | | [address] | | | | | | [phone] | | | +--------+ + + + [...]
--- OUTSIDE RECORDS SUMMARY | ~2020-03-23 | XMS | Encounter Summary ---
Demographics + + + | Address | [address] | | | [place] [address] | + + + | Home Phone [...] Team Providers + +------+ + | Care Camp Cook Name | Role | Phone | + [...] | | Complex | Alex Alba, | [facility] [address] | | | | | regional | ,PhD [address] | Pavilion | | | | | pain | [address] | [address] | | | | | syndrome | [address] | [address], | | | | | type 1 of | Rd | Basement | | | | | left lower | [place], [place] | [place], [place] | | | | | extremity | [address] | [address] | | | | | Muscle pain | Phone: | Phone: | | | | | Procedures | [phone] | [phone] | | | | | [place] BONE | Fax: | Fax: | | | | | &/OR JOINT | [phone] | [phone] | | | | | IMAGING | [...] | | 2018 | Encounter | at [facility] [address] | ,PhD [address] [facility] | | | | | [address] | [address] | | | | | [address], | [place], [place] | | | | | [facility], | [address] | | | | | [place] [address] | [phone] | | | | | [phone] | | | +--------+ + + + [...]
--- OUTSIDE RECORDS SUMMARY | ~2020-03-23 | XMS | Encounter Summary ---
Demographics + + + | Address | [address] | | | [place] [address] | + + + | Home Phone [...] Team Providers + +------+ + | Care Overhauler Bus Truck Name | Role | Phone | + [...] Rd | | | | | | [place], [place] | | | | | | [address] | | | +--------+ + + + [...]
--- OUTSIDE RECORDS SUMMARY | ~2020-03-23 | XMS | Encounter Summary ---
Demographics + + + | Address | [address] | | | [place] [address] | + + + | Home Phone [...] Team Providers + +------+ + | Care Calciner Feeder Name | Role | Phone | [...] Rd | | | | | | [place], [place] | | | | | | [address] | | | +--------+ + + + [...]
--- OUTSIDE RECORDS SUMMARY | ~2020-03-23 | XMS | Encounter Summary ---
Demographics + + + | Address | [address] | | | [place] [address] | + + + | Home Phone [...] Team Providers + +------+ + | Care Blind Hanger Name | Role | Phone | [...] CRPS | Janak Martinez MD | [address] | | | | Management | (complex | [address] | | | | | regional | [address] | Mailcode: | | | | | pain | Mailstop | CH15[facility] Center | | | | | syndrome), | [id number] | for Health | | | | | lower limb | [place], [place] | and Healing, | | | | | Gait | [address] | Building 1, | | | | | disturbance | Phone: | 15th Floor | | | | | Muscle pain | [phone] | [place], [place] | | | | | Procedures | Fax: | [address] | | | | | CONSULT TO | [phone] | Phone: | | | | | PAIN CENTER | | [phone] | | | | | | | Fax: | | | | | | | [phone] | +--------+--------+ + + + + Encounter Details +--------+---------+ + + + | Date | Type | Department | Care Team | Description | +--------+---------+ + + + | 03/20/ | Office | Pain Center at [facility] | Shelia Feldman, PhD | Unspecified | | 2011 | Visit | [address] | | adjustment reaction | | | | Mailcode: CH15P | | (Primary Dx) | | | | [facility] | | | | | | and [place], | | | | | | | | | | | | [place], [place] | | | | | | [address] | | | | | | [phone] | | | +--------+---------+ + + + [...] Feldman, PhD - 03/20/2012 3:27 PM PDT [facility] Pain Center Name: Tracie Farah MR#: [id number] Date of : 1990 Date: March 20, 2012 Attending Psychologist: SHELIA FELDMAN, PHD CPT: 66650 Duration: 60min Psych: 309.0 Pain: 355.71 Tracie arrived on time for today's appointment, casually dressed and neatly groomed. Affect was appropriate, mood normothymic. She drove herself today and used crutches. She stated t hat she was doing "better", mainly because she has returned to work at [employer]. She is wo rking about 2 hour shifts; her pain is flared during work but she feels good because she is engaging in life and also is earning money. She reported that she has been cutting down on her pain medication because she wants to improve cognition (currently taking 1-2 daily at [facility] for sleep). She notes that she [...] discretion, not currently planned. SHELIA FELDMAN, PHD Water And Gas Helper Licensed Clinical Psychologist [facility] [place] Department of Anesthesiology & Perioperative Medicine [facility] [address] [place] [address] Historical Information: Introduction: Tracie Farah is a 21-year-old woman with >5 year hx of CRPS, R LE.S ocial & Psychiatric History: Tracie Farah lives in [place] in a shared apartment space. She has struggled wi th CRPS for at least 5 years; original injury to her foot was in 2001. In summer 2010 she h ad inpt pain tx at [facility] with limited shelter benefit. Recent flare; she arrived using crutches [...] She learned some pain management techniques at [facility], mainly DB and PMR, which [...] Travel is a barrier; she lives in [place] DSM-IV Diagnoses/Impressions: [place] I: 1. 309.9 Unspecified Adjustment Reaction 2. 780.50 Sleep Disturbance [place] II: Deferred. [place] III: Patient Active Problem List Diagnoses CRPS (complex regional pain syndrome), lower limb Gait disturbance Muscle pain Adjustment reaction [place] IV: CRPS pain, pain related debility;difficulty attending class, working; family stres s; stalker ex-bf [place] V: Global Assessment of Functioning = 75 [...] me should questions arise. SHELIA FELDMAN, PHD Water And [employer] Helper Licensed Clinical Psychologist [facility] [place] Department of Anesthesiology & Perioperative Medicine [facility] [address] [place] [address] documented in this enc ounter Plan of Treatment Not on filedocumented as of this encounter Visit Diagnoses + + | Diagnosis | + + | Unspecified adjustment reaction - Primary | + + documented in this encounter
--- OUTSIDE RECORDS SUMMARY | ~2020-03-23 | XMS | Encounter Summary ---
Demographics + + + | Address | [address] | | | [place] [address] | + + + | Home Phone [...] + + + + | 01/06/ | Document-Hi | [facility] | Alex Sanchez, | | | 2018 | annemily | Pain Center at | ,PhD [address] | | | | | [facility] | [address] | | | | | [address] | [place], [place] | | | | | Mailcode: CH15P | [address] | | | | | [place] for [facility] | [phone] | | | | | and Healing, | | | | | | | | | | | | Floor [place], [place] | | | | | | [address] | | | | | | [phone] | | | +--------+ + + + [...]
--- OUTSIDE RECORDS SUMMARY | ~2020-03-23 | XMS | Encounter Summary ---
Demographics + + + | Address | [address] | | | [place] [address] | + + + | Home Phone [...] Providers + +------+ + | Care General Studies Program Chair Name | Role | Phone | [...] | | Center at [facility] [address] | | | | | | [address] | | | | | | Mailcode: [place] | | | | | | for Health and | | | | | | Healing, Building [address] | | | | | | [facility] [place] | | | | | | [address] | | | | | | [phone] | | | +--------+--------+ + + + [...]
--- OUTSIDE RECORDS SUMMARY | ~2020-03-23 | XMS | Encounter Summary ---
Demographics + + + | Address | [address] | | | [place] [address] | + + + | Home Phone [...] Team Providers + +------+ + | Care Insulation Technician Name | Role | Phone | + +------+ + | Allegra Gandhi | PCP | | + +------+ + Encounter Details +--------+ + + + + | Date | Type | Department | Care Team | Description | +--------+ + + + + | 08/02/ | Results | [facility] | Janak Riojas, | | | 2011 | Only | Pain Center at | MD [address] [facility] | | | | | [facility] | [facility] [address]153 | | | | | [address] | [place], [place] | | | | | Mailcode: CH15 | [address] | | | | | [place] for [facility] | [phone] | | | | | and [place], | | | | | | | | | | | | Floor [place], [place] | | | | | | [address] | | | | | | [phone] | | | +--------+ + + + [...]
--- OUTSIDE RECORDS SUMMARY | ~2020-03-23 | XMS | Encounter Summary ---
Demographics + + + | Address | [address] | | | [place] [address] | + + + | Home Phone [...] Providers + +------+ + | Care Paper Control Clerk Name | Role | Phone [...] | | | sympathetic | [place] | [address]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 | FAMILY | Mailstop | | | | | of lower | MEDICINE P | [id number] | | | | | limb | [address] | [place], [place] | | | | | | [place], | [address] | | | | | | [place] [address] | Phone: | | | | | | Phone: | [phone] | | | | | | [phone] | Fax: | | | | | | Fax: | [phone] | | | | | | [phone] | | +--------+--------+ + + + + Encounter Details +--------+---------+ + + + | Date | Type | Department | Care Team | Description | +--------+---------+ + + + | 03/17/ | Office | [facility] | Dale Cantu, | CRPS (complex | | 2011 | Visit | Pain Center at | [address] | regional pain | | | | [place] | [address] Mailstop [id number] | syndrome), lower | | | | [address] | [place], [place] | limb; Adjustment | | | | Mailcode: CH15 | [phone] | reaction; Muscle | | | | [facility] | [phone] | pain; Gait | | | | and Healing, | | disturbance | | | | Building | | | | | | Floor [place], [place] | | | | | | [address] | | | | | | [phone] | | | +--------+---------+ + + + [...] Pain: After Your Visit", log into your Evomail nt at [email or web address]. You can enter G828 in the Across The Universe Library" search box. Not on Advanced LEDshart? Review the MyChart section of your After Visit Summary for directions on liz rea to sign up. [phone] Instagram. Care instructions adapted under license by [facility] [place]. This care instruction is for use with your licensed healthcar e professional. If you have questions about a medical condition or this instruction, always ask your healthcare professional. Instagram disclaims any warranty or liabili ty for your use of this information. Content Version: 9.2.381119; Last Revised: April 29, 2011 Nortriptyline for [...] Pain: After Your Visit", log into your Evomail nt at [email or web address]. You can enter G828 in the Across The Universe Library" search box. Not on J[employer]? Review the Advanced LEDshart section of your After Visit Summary for directions on ho w to sign up. [phone] Instagram. Care instructions adapted under license by [facility] [place]. This care instruction is for use with your licensed healthcar e professional. If you have questions about a medical condition or this instruction, always ask your healthcare professional. Instagram disclaims any warranty or liabili ty for your use of this information. Content Version: 9.2.295991; Last Revised: April 29, 2011 documented in this encounter Progress Notes Dale Cantu MD - 03/17/2012 4:21 PM PDTI saw and evaluated the patient with Resident : Marquis Elaine MD, who conducted the initial history. I reviewed the history in detail a nd edited his note. I was present for the examination and formulation portions of the catholic health[facility] nter. I agree with the findings and the plan of care as documented in our notes. DALE CANTU MD Roof Fixer, [facility] Grinder Operator, Pain Medicine Professor, Anesthesiology & Perioperative Medicine NAMollMarquis manriquez MD - 03/17/2012 3:42 PM PDT [facility] Return Visit with Dr. [...] her pain. She continues to take 6-8 [place] per day and 600 mg of ibuprofen [...] and a pain drawing which I reviewed. [facility] Brief Pain Inventory: (ten= [...] The Review of Systems obtained by the [facility] was reviewed. Additional Review of Systems: Bones, [...] you require any medication refills today? no SAMPLE PATTERNMAKER ROS: 1. Bones, Joints, and Muscles: cramps [...]
--- OUTSIDE RECORDS SUMMARY | ~2020-03-23 | XMS | Encounter Summary ---
Demographics + + + | Address | [address] | | | [place] [address] | + + + | Home Phone [...] Team Providers + +------+ + | Care Health Program Manager Name | Role | Phone | + +------+ + | Justo Vazquez MD | PCP | | + +------+ + Encounter Details +--------+ + + + + | Date | Type | Department | Care Team | Description | +--------+ + + + + | 04/23/ | Anesthesia | Pain Center at [facility] | Aleta Rebollar MD [address] | | | 2019 | Event | [address] | [address] | | | | | Mailcode: CH15P | [facility] [place] | | | | | [place] for [facility] | [address] | | | | | and Healing, | [phone] | | | | | | | | | | | Floor [place], [place] | | | | | | [address] | | | | | | [phone] | | | +--------+ + + + [...]
--- OUTSIDE RECORDS SUMMARY | ~2020-03-23 | XMS | Encounter Summary ---
Demographics + + + | Address | [address] | | | [place] [address] | + + + | Home Phone [...] Providers + +------+ + | Care Scroll Machine Operator Name | Role | Phone [...] | Diagnoses | Beulah | Edu Pt Water Plumber | | | | Therapy | CRPS | Janak Martinez MD | [address] | | | | | (complex | [address] | | | | | regional | [address] | Mailcode: | | | | | pain | Mailstop | [facility] | | | | | syndrome), | [phone] | for Health | | | | | lower limb | [place], [place] | and Healing, | | | | | Gait | [address] | Building 1 | | | | | disturbance | Phone: | [place], [place] | | | | | Muscle pain | [phone] | [address] | | | | | Procedures | Fax: | Phone: | | | | | PHYSICAL | [phone] | [phone] | | | | | THERAPY | [...] regional pain | | | | [facility] | [place] [address] | syndrome), lower | | | | [address] | [phone] | limb (Primary Dx) | | | | Mailcode: CH3P | | | | | | [facility] | | | | | | and Healing, | | | | | | [address] | | | | | | Floor [place], [place] | | | | | | [address] | | | | | | [phone] | | | +--------+---------+ + + + [...] might be different f rom the original. [id number] BRODY FARAH Date of : 1990 Start of care: 02/14/2012 Date of onset: 02/14/2012 Referring/Attending Practitioner: Janak Riojas MD . Primary/Referral Diagnosis/ICD-9: 355.71B CRPS (complex regional pain syndrome), lower limb Insurance: Payor: [facility] Plan: BCBS OUT OF STATE Product Type: PP O Service period from: 02/14/2012 to: 08/12/2012 Number visits used/authorized: 11/25 [facility] PHYSICAL THERAPY INITIAL EVALUATION SUBJECTIVE: Age: 21 [...] pain relief. Admitted to the inpatient [facility] program for 1 month in [...] Diagnostic evaluation: Records from CRPS program at [facility]. Suggest three phase bone sca n. 2. [...] employed by the psychologists here at the [facility]. 2.2 Physical therapy can reduce pain and improve functional status. Suggest Guillermo Sanon. 3. Medication suggestions: 3.1 Continue titrating up duloxetine. 3.2 As for any patient being managed with chronic opioids, we do recommend that the patient have a signed [facility] Material Risk Notice, agree to whatever [...] and hemr oidectomy. Social History: lives in [place], 22 years old, not working currently, in [...] or concerns about therapy: she lives in [place]. She is r equesting family members or [...] provided with a token and bocanegra for [facility] site. Treatment began: 1345hrs Treatment ended: 1430hrs Manual therapy: 0min Therapeutic exercise: 15 min ASSESSMENT: pt presents with 10-year history of ankle pain post trauma and multiple surgeri es. She thinks she developed CRPS in 2004. She was diagnosed with CRPS and spent a month in the program at [facility] working through aggressive desensitization and activation which prov ided no lasting benefit. She lives in [place], is going to school, and ambulates with [...] She can work with her PT in [employer]. CLINICAL PRIORITIES: 1-follow up with Dr Riojas [...] change in their status. Guillermo Sanon MSPT [facility] Outpatient Rehabilitation Services Mailcode: Ch3p [address] [facility], [address] [place] [phone] documented in this encounter Plan of Treatment Not on filedocumented as of this encounter Procedures + +--------+ + + + | Procedure Name | Priori | Date/Time | Associated Diagnosis | Comments | | | ty | | | | + +--------+ + + + | [place] THERAPEUTIC | Routin | 02/16/2012 | CRPS (complex | | | EXERCISES | e | 3:34 PM | regional pain | | | | | PDT | syndrome), lower | | | | | | limb | | + +--------+ + + + | [place] PHYS THERAPY | Routin | 02/16/2012 | [...]
--- OUTSIDE RECORDS SUMMARY | ~2020-03-23 | XMS | Encounter Summary ---
Demographics + + + | Address | [address] | | | [place] [address] | + + + | Home Phone [...] Providers + +------+ + | Care Medical Scribe Name | Role | Phone | + [...] | | Pain Center at | RUBBER STAMP DIE INSPECTOR [address] | | | | | [facility] | [facility] [place] | | | | | [address] | [address] | | | | | Mailcode: CH15P | [phone] | | | | | [facility] | | | | | | and Healing, | | | | | | Building | | | | | | [place], [place] | | | | | | [address] | | | | | | [phone] | | | +--------+ + + + [...]
--- OUTSIDE RECORDS SUMMARY | ~2020-03-23 | XMS | Encounter Summary ---
Demographics + + + | Address | [address] | | | [place] [address] | + + + | Home Phone [...] | [facility] | Aleta Rebollar MD [address] | Nausea | | 2018 | | Pain Center at | [address] | | | | | [facility] | [place], [place] | | | | | [address] | [address] | | | | | Mailcode: CH15P | [phone] | | | | | [facility] | | | | | | joana Mack, | | | | | | [facility] | | | | | | [place], [place] | | | | | | [address] | | | | | | [phone] | | | +--------+ + + + [...]
--- OUTSIDE RECORDS SUMMARY | ~2020-03-23 | XMS | Encounter Summary ---
Demographics + + + | Address | [address] | | | [place] [address] | + + + | Home Phone [...] Team Providers + +------+ + | Care Hadoop Administrator Name | Role | Phone | [...] | Diagnoses | Beulah | Edu Pt Drywall Carrier | | | | Therapy | CRPS | Janak Martinez MD | [address] | | | | | (complex | [address] | | | | | regional | [address] | Mailcode: | | | | | pain | Mailstop | [facility] | | | | | syndrome), | [id number] | for Health | | | | | lower limb | [place], [place] | and Healing, | | | | | Gait | [address] | [address] | | | | | disturbance | Phone: | [place], [place] | | | | | Muscle pain | [phone] | [address] | | | | | Procedures | Fax: | Phone: | | | | | PHYSICAL | [phone] | [phone] | | | | | THERAPY | [...] pain | | | | [facility] | [place] [address] | syndrome), lower | | | | [address] | [phone] | limb (Primary Dx) | | | | Mailcode: CH3P | | | | | | [facility] | | | | | | and Healing, | | | | | | [address] | | | | | | Floor [place], [place] | | | | | | [address] | | | | | | [phone] | | | +--------+---------+ + + + [...] might be different f rom the original. [id number] BRODY FARAH Date of : 1990 Start of care: 02/14/2012 Date of onset: 02/14/2012 Referring/Attending Practitioner: Janak Riojas MD . Primary/Referral Diagnosis/ICD-9: 355.71B CRPS (complex regional pain syndrome), lower limb Insurance: Payor: [facility] Plan: BCBS OUT OF STATE Product Type: PP O Service period from: 02/14/2012 to: 08/12/2012 Number visits used/authorized: 01/23 [facility] PHYSICAL THERAPY PROGRESS NOTE SUBJECTIVE: Age: 21 y.o. Sex: female Chief complaint: No chief complaint on file. Current: pt has been doing her neck exercises. She is not shaking as much. Her foot hurts t bruno. Now she is working at [employer] 2-3 hours per week, and spends a [...] change in their status. Guillermo Sanon MSPT [facility] Outpatient Rehabilitation Services Mailcode: Ch3p [address] [facility], [address] [place] [phone] documented in this encounter Plan of Treatment Not on filedocumented as of this encounter Procedures + +--------+ + + + | Procedure Name | Priori | Date/Time | Associated Diagnosis | Comments | | | ty | | | | + +--------+ + + + | [place] THERAPEUTIC | Routin | 05/11/2012 | CRPS [...]
--- OUTSIDE RECORDS SUMMARY | ~2020-03-23 | XMS | Encounter Summary ---
Demographics + + + | Address | [address] | | | [place] [address] | + + + | Home Phone [...] Team Providers + +------+ + | Care Alumni Relations Officer Name | Role | Phone | + +------+ + | Justo Vazquez MD | PCP | | + +------+ + Encounter Details +--------+ + + + + | Date | Type | Department | Care Team | Description | +--------+ + + + + | 03/23/ | MyChart | [facility] | Ilene Bright, | Welcome | | 2017 | Encounter | Pain Center at | MARKETING DESIGNER [address] | | | | | [facility] | [place], [place] | | | | | [address] | [address] | | | | | Mailcode: CH15 | [phone] | | | | | [place] for [facility] | | | | | | and Healing, | | | | | | | | | | | | Floor [place], [place] | | | | | | [address] | | | | | | [phone] | | | +--------+ + + + [...]
--- OUTSIDE RECORDS SUMMARY | ~2020-03-23 | XMS | Encounter Summary ---
Demographics + + + | Address | [address] | | | [place] [address] | + + + | Home Phone [...] Team Providers + +------+ + | Care Indoor Landscaper/Gardener Name | Role | Phone | + [...] | | | regional | [place] | [address] | | | | | pain | FAMILY | [facility] | | | | | syndrome), | MEDICINE P | [id number] | | | | | lower limb | [address] | [place], [place] | | | | | Pain in | [place], | [address] | | | | | joint, lower | [place] [address] | Phone: | | | | | leg | Phone: | [phone] | | | | | Procedures | [phone] | Fax: | | | | | REQUEST TO | Fax: | [phone] | | | | | SURGERY | [phone] | | | | | | VTC TECHNICIAN | | | +--------+--------+ + + + + Encounter Details +--------+ + + + + | Date | Type | Department | Care Team | Description | +--------+ + + + + | 08/02/ | Procedure | Pain Center at [facility] | Dale Cantu, | Procedure; | | 2011 | | [address] | [address] [facility] | Injection; Procedure | | | | Mailcode: CH15P | [facility] [id number] | | | | | [facility] | [place], [place] | | | | | and [place], | [address] | | | | | [facility] | [phone] | | | | | Floor [place], [place] | | | | | | [address] | | | | | | [phone] | | | +--------+ + + + [...] e might be different from the original. [facility] Patient Instructions - Post Spinal Cord Stimulator Trial Date: 08/02/2012 Name: Tracie Farah Date of : 1990 Procedure Performed: SCS TRIAL LUMBAR [facility]. Procedure Provider: Dale Cantu [facility] Procedure Rm If you have any problems you believe are associated with your procedure tonight, Please call the Hospital Pharmacy Cashier, and ask for the Pain Management Consu ltant. If you have problems or questions between 9:00 am and 4:00 pm, Please call the [facility] Nurse Triage Line, . If you go to an Emergency Room, please bring this form with you. DISCHARGE INSTRUCTIONS Call immediately and/or go to the Emergency department if any concerns about wound healing, fever, or chills. Also call for concerns about SCS function. During [facility] open hours, call the [facility] ([phone]), after hours call the jump roll operator at [facility] ([phone]) and ask for t Adult Pain Service juvenile probation officer. Identify yourself as a Comprehensive Pain Center [...] the wounds, dressing, or SCS function. During VALUE ENGINEER o pen hours, call the VALUE ENGINEER ([phone]), after hours call the jump roll operator at [facility] ([phone] ) and ask for the Adult Pain Service juvenile probation officer. Identify yourself as my patient with a concer n about postoperative recovery. If there are concerns about the SCS programming, contact t he employer relations representative from the SCS treer. If the stimulation is not covering your area o f pain, your SCS should be reprogrammed. Do not take any blood thinning medications during the trial. Instructions printed and reviewed with the patient. Copy of instructions given to Pj Nemo víctor. DALE CANTU MD [facility] Center documented in [...] and postoperative care instructions. DALE CANTU MD Professional Development Director, [facility] Guest Relations Agent, Pain Medicine Professor, Anesthesiology & Perioperative Medicine Diana Arroyo RN - 08/02/2012 7:34 AM PDT PRE-SEDATION: Date: August 02, 2012 Tracie Farah [id number] 1990 ALLERGIES: Morphine Previous reaction to Sedation/Analgesia: MEDICATIONS: Current Outpatient Prescriptions Medication HYDROcodone-acetaminophen (NORCO) 10-325 mg Oral Tablet KETOROLAC TROMETHAMINE (TORADOL IM) levonorgestrel (MIRENA) 20 mcg/24 hr Intrauterine IUD LORazepam 1 mg Oral Tablet ondansetron (ZOFRAN) 8 mg Oral Tablet promethazine 25 mg Oral Tablet Meets NPO Guidelines. IV ACCESS: IV in Place IV Site [facility] 22 g @ 0655 BASELINE VS: See Sedation Flow Sheet. Tracie Donaldson [facility] [id number] 1990, presents to clinic for: Procedure: Spinal [...] 0732 - 0733: Midazolam 2 [place] [address]: Fentanyl 25 mcg IV 0740 - 0741: Midazolam 2 mg IV 0742: Procedure started 0743 - 0744: Fentanyl 50 mcg IV 0753-54: Fentanyl 25 mcg IV Lead # 1 placed Lead # 2 placed 0801: Stimulation started. 0829: Pt reports stimulation to usual areas of pain. Leads secured. 0845: Pt returned to [facility] per man in stable condition. IV [...] OPERATIVE NOTE Date: August 02, 2012 Location: [facility] Procedure Room Tracie Farah [id number] :1990, presents to clinic for: PROCEDURE: Spinal Cord Stimuation Trial LEVEL/LATERALITY: midline lumbar PRE-OPERATIVE DIAGNOSIS: 355.71B CRPS (complex regional pain syndrome), lower limb 719.46 Pain in joint, lower leg 781.2Q Gait disturbance POST-OPERATIVE DIAGNOSIS: 355.71B CRPS (complex regional pain syndrome), lower limb 719.46 Pain in joint, lower leg 781.2Q Gait disturbance ATTENDING PHYSICIAN: Dale Cantu MD CASKET ASSEMBLER METAL: Fellow Bear Yost DO ANESTHESIA: sedation delivered [...] sedation. Ms. Farah was escorted to the [facility] Procedure Ro om, where she was positioned Prone on the examination table. TEAM PAUSE: The physician-led pause was conducted, and is documented in the Nursing note. Monitors were placed, including ECG, NIBP and SpO2. The skin was prepared with Chloroprep and sterile drapes were applied. [employer] system was used for this procedure. The company employer relations representative was theresa knutson for the procedure. [...] pain. Ms. Farah was transported to the [facility] Pain Center post-procedure recovery area where she made an uneventful recovery. Images were saved, and sent to [employer]. Ms. Farah will have her next appointment [...] about wound healing or SCS function. During [facility] open hours, call the [facility] ([phone]), after h ours call the jump roll operator at [facility] ([phone]) and ask for the Adult Pain Service juvenile probation officer. Identify yourself as my patient with a [...] | + +--------+ + + + | MD PERCUT IMPLNT | Routin | 08/03/2012 | [...]
--- OUTSIDE RECORDS SUMMARY | ~2020-03-23 | XMS | Encounter Summary ---
Demographics + + + | Address | [address] | | | [place] [address] | + + + | Home Phone [...] Team Providers + +------+ + | Care Quote Clerk Name | Role | Phone | + +------+ + | Justo Vazquez MD | PCP | | + +------+ + Encounter Details +--------+ + + + + | Date | Type | Department | Care Team | Description | +--------+ + + + + | 05/12/ | MyChart | Pain Center at [facility] | Ewa Melchor, | RE: Schedule change | | 2017 | Encounter | [address] | GROUP CHIEF OPERATOR [address] | | | | | Mailcode: CH15P | [address] | | | | | [place] for [facility] | [place] [address] | | | | | and Healing, | [phone] | | | | | | | | | | | Floor [place], [place] | | | | | | [address] | | | | | | [phone] | | | +--------+ + + + [...]
--- OUTSIDE RECORDS SUMMARY | ~2020-03-23 | XMS | Encounter Summary ---
Demographics + + + | Address | [address] | | | [place] [address] | + + + | Home Phone [...] Providers + +------+ + | Care Research Scholar Name | Role | Phone | + +------+ + | Justo Vazquez MD | PCP | | + +------+ + Encounter Details +--------+ + + + + | Date | Type | Department | Care Team | Description | +--------+ + + + + | 03/11/ | Telephone | [facility] | Zeeshan Mahoney MD | | | 2019 | | Pain Center at | [address] | | | | | [facility] | Giuliana Maldonado [place], | | | | | [address] | [place] [address] | | | | | Mailcode: CH15P | [phone] | | | | | [facility] | | | | | | and Healing, | | | | | | | | | | | | [place], [place] | | | | | | [address] | | | | | | [phone] | | | +--------+ + + + [...]
--- OUTSIDE RECORDS SUMMARY | ~2020-03-23 | XMS | Encounter Summary ---
Demographics + + + | Address | [address] | | | [place] [address] | + + + | Home Phone [...] Team Providers + +------+ + | Care Dovetailer Name | Role | Phone | + +------+ + | Justo Vazquez MD | PCP | | + +------+ + Encounter Details +--------+ + + + + | Date | Type | Department | Care Team | Description | +--------+ + + + + | 08/30/ | Documentati | Pain Center at [facility] | Jamel Madden G, | | | 2018 | on | [address] | PhD [address] | | | | | Mailcode: CH15P | [facility] [place] | | | | | [place] for [facility] | [address] | | | | | and Healing, | [phone] | | | | | | | | | | | Floor [facility] [place] | | | | | | [address] | | | | | | [phone] | | | +--------+ + + + [...]
--- OUTSIDE RECORDS SUMMARY | ~2020-03-23 | XMS | Encounter Summary ---
Demographics + + + | Address | [address] | | | [place] [address] | + + + | Home Phone [...] Providers + +------+ + | Care Md Do Resident Urgent Care Name | Role | Phone | [...] | pain, | [address] | [address] | | | | | unspecified | [address] | [address] | | | | | abdominal | Rd | [place], [place] | | | | | location | [facility] [place] | [address] | | | | | Pain of | [address] | Phone: | | | | | upper | | [phone] | | | | | abdomen | | Fax: | | | | | Complex | | [phone] | | | | | regional | [...] | | | | | | | COMMERCIAL LENDING VICE PRESIDENT | | | +--------+---------+ + + + + Reason for Visit + + + | Reason | Comments | + + + | Procedure | | + + + Encounter Details +--------+ + + + + | Date | Type | Department | Care Team | Description | +--------+ + + + + | 08/30/ | Telephone | [facility] | Ilene Bright, | Procedure | | 2017 | | Pain Center at | COPYHOLDER [address] | | | | | [facility] | [place], [place] | | | | | [address] | [address] | | | | | Mailcode: CH15 | [phone] | | | | | [facility] | | | | | | and Healing, | | | | | | Building | | | | | | Floor [place], [place] | | | | | | [address] | | | | | | [phone] | | | +--------+ + + + [...]
--- OUTSIDE RECORDS SUMMARY | ~2020-03-23 | XMS | Encounter Summary ---
Demographics + + + | Address | [address] | | | [place] [address] | + + + | Home Phone [...] + +------+ + | Care E Learning Designer Name | Role | Phone | [...] [address] | | | | | [facility] | [facility], | | | | | [address] | [place] [address] | | | | | Mailcode: CH15P | [phone] | | | | | [facility] | | | | | | and Healing, | | | | | | Building | | | | | | Floor [place], [place] | | | | | | [address] | | | | | | [phone] | | | +--------+ + + + [...]
--- OUTSIDE RECORDS SUMMARY | ~2020-03-23 | XMS | Encounter Summary ---
Demographics + + + | Address | [address] | | | [place] [address] | + + + | Home Phone [...] Providers + +------+ + | Care Material Control Specialist Name | Role | Phone | [...] | | pain | [address] | [place], [place] | | | | | syndrome | [place], [place] | [address] | | | | | type 1 of | [address] | Phone: | | | | | left lower | Phone: | [phone] | | | | | extremity | [phone] | Fax: | | | | | Midline low | Fax: | [phone] | | | | | back pain | [phone] | | | | | | without [...] Ave | | | | | | [place], [place] | [facility] [place] | | | | | | [address] | [address] | | | | | | Phone: | Phone: | | | | | | [phone] | [phone] | | | | | | Fax: | Fax: | | | | | | [phone] | [phone] | +--------+---------+ + + + + Encounter Details +--------+---------+ + + + | Date | Type | Department | Care Team | Description | +--------+---------+ + + + | 07/04/ | Office | [facility] | Lane Reyes, | Complex regional | | 2019 | Visit | Pain Center at | [place] [address] | pain syndrome type 1 | | | | [place] | [place], [place] | of left lower | | | | [address] | [address] | extremity (Primary | | | | Mailcode: CH15 | [phone] | Dx); Midline low | | | | [place] for [facility] | | back pain without | | | | and Healing, | | sciatica, | | | | | | unspecified | | | | Floor [place], [place] | | chronicity; | | | | [address] | | Sacroiliac pain; | | | | [phone] | | Sacral dysfunction; | | | [...] as Pretty healthy/ healthier than the average perso n. She reports that she eats a lot [...] and help in coping with the pain. NOVELTY MAKER Brief Pain Inventory: (ten= worst possible pain [...] a light load. Has been working at [employer], can' t work on crutches. Has roommates. Allergies Allergen Reactions Morphine Anaphylaxis [...] as directed by [facility]- 2 gallon bowel prep POLYETHYLENE GLYCOL 3350 17 GRAM/DOSE ORAL POWDER Take 17 g by mouth once daily. PROMETHAZINE 12.5 MG TABLET Take 1 tablet by mouth four times daily as needed for nausea/vo miting. SUCRALFATE 1 GRAM TABLET Take 1 g by mouth four times daily. Radiology/Diagnostic Tests: X-RAY SPINE CERV 4 VIEWS Order: [id number] Performed: 06/12/2018 11:40 Status: Final result Visible [...] necessary, edited the report. I agree with jorge report as now presented. Final signature: Varinder [...] deltoid: 4/5 Left deltoid: 5/5 Right biceps: 4/5 Left biceps: 5/5 Right triceps: 4/5 Left triceps: 5/5 Right wrist flexion: 4/5 Left wrist flexion: 5/5 Right wrist extension: 4/5 Left wrist extension: 5/5 Right interossei: 4/5 Left interossei: 5/5 Right iliopsoas: 4/5 Left iliopsoas: 4/5 Right quadriceps: 5/5 Right [...] that the treatment performed by the chiropractic development intern, Niesha Reveles, was directly observed by myself the primary chiropractor Lane Reyes [place] Visit Diagnoses: ICD-10-CM 1. Complex regional pain syndrome type 1 of left lower extremity G90.522 CONSULT TO PAIN [facility] 2. Midline low back pain without sciatica, unspecified chronicity M54.5 CONSULT TO PAIN [facility] SAULT 3. Sacroiliac pain M53.3 CONSULT TO PAIN MANAGEMENT [place] CHIROPRAC MANIP,SPINAL,1-2 REGIONS 4. Sacral dysfunction M53.3 [place] CHIROPRAC MANIP,SPINAL,1-2 REGIONS 5. Somatic dysfunction of pelvis region M99.05 OH CHIROPRAC MANIP,SPINAL,1-2 REGIONS 6. Somatic dysfunction of sacral region M99.04 OH CHIROPRAC MANIP,SPINAL,1-2 REGIONS Impression: Tracie Farah is a very pleasant 29 year old female who complains today of low back , mid back and neck pain. Her pain intensified after a spinal core simulation surgery [place] of this year. Ms. Farah was alert [...] not preformed as specified above) I, Niesha Reveles, attest that I documented this encounter. I have reviewed and verified the above note written by Chiropractic development intern of our visit wit h this patient as recorded by Lane Reyes DC [facility] AT [address] Mail Code: Ch15p [place] [address] documented in this e ncounter Plan of Treatment Not on filedocumented as of this encounter Procedures + +--------+ + + + | Procedure Name | Priori | Date/Time | Associated Diagnosis | Comments | | | ty | | | | + +--------+ + + + | OH CHIROPRAC | Routin | 07/10/2019 | Sacroiliac [...]
--- OUTSIDE RECORDS SUMMARY | ~2020-03-23 | XMS | Encounter Summary ---
Demographics + + + | Address | [address] | | | [place] [address] | + + + | Home Phone [...] Providers + +------+ + | Care Machine Shop Inspector Name | Role | Phone | [...] Park | [facility] | | | | | type 1 of | Rd | Rd [place], | | | | | left lower | [place], [place] | [place] | | | | | extremity | [address] | [address] | | | | | Procedures | Phone: | Phone: | | | | | REQUEST TO | [phone] | [phone] | | | | | SURGERY | Fax: | Fax: | | | | | [employer] BLOCKMAKER | [phone] | [phone] | +--------+---------+ + + + + Encounter Details +--------+ + + + + | Date | Type | Department | Care Team | Description | +--------+ + + + + | 12/ | Procedure | Pain Center at [facility] | Alex Sanchez, | Foot pain; Knee | | 2018 | | [address] | ,PhD [address] | pain; Procedure | | | | Mailcode: CH15P | [facility] [place] | | | | | [facility] | [place], [place] | | | | | and Healing, | [address] | | | | | [facility] | [phone] | | | | | Floor [place], [place] | | | | | | [address] | | | | | | [phone] | | | +--------+ + + + [...] Sonia Key - 09/25/2018 1:00 PM PST [facility] Patient Instructions - Post Interventional Procedure Date: 09/25/2018 Name: Tracie Farah Date of : 1990 Procedure Performed: SCS DRG TRIAL LUMBAR [facility]. Procedure Provider: Alex Sanchez MD,PhD If you have any problems you believe are associated with your procedure tonight, Please call the Hospital Label Rewinder, and ask for the Pain Management Consu ltant. If you have problems or questions between 9:00 am and 4:00 pm, Please call the [facility] Center Nurse Triage Line, . [...] symptoms, dressing, SCS function, or chills. During COLLIERY CLERK open ho urs, call the COLLIERY CLERK ([phone]), after hours call the ultrasonic welding machine operator at [facility] ([phone]) and ask for the Adult Pain Service immigration coordinator. Identify yourself as a Comprehensive Pain Center [...] the pat ient. Aleta Rebollar MD [facility] Comprehensive Pain Center Dnegohvlzgmrno signed by Sonia Key at 09/25/2018 3:07 PM PST documented in this encounter Progress Notes Alex Sanchez MD,PhD - 09/25/2018 1:00 PM PSTI was present for the entire procedure ( DRG SCS trial) and all bocanegra elements of this visit. I reviewed the documentation of the othe r [facility] providers and concur with Dr. Rebollar's findings. I edited his note. Alex Sanchez MD,PhD [facility] Anesthesiology and Pain Management [facility] Louann onacier, Zain Hale RN - 09/25/2018 1:00 [...] by physician. Concentration is 150mg/mL. Compounded by [facility] ) KETOROLAC IM Inject into the [...] as directed by [facility] Digestive [facility]- 2 gallon [...] oterKhloe RN - 09/25 1:00 PM PST RN/ZOFIA PRE-SEDATION: Date: September 25, 2018 Tracie Farah [id number] 1990 ALLERGIES: Morphine Previous reaction to Sedation/Analgesia: [...] NOTES: Date: September 25, 2018 Tracie Donaldson [facility] [id number] 1990 ALLERGIES: Morphine Previous reaction to Sedation/Analgesia: [...] VS: See Sedation Flow Sheet. Tracie Donaldson [facility] [id number] 1990, presents to clinic for: Procedure: bilateral [...] OPERATIVE NOTE Date: September 25, 2018 Location: [facility] Procedure Room Tracie Donaldson [facility] [id number] :1990, presents to clinic for: PROCEDURE: DRG Spinal Cord Stimuation Trial with [employer] system LEVEL/LATERALITY: left L4, L5 PRE-OPERATIVE DIAGNOSIS: G90.522 Complex regional pain syndrome type 1 of left lower extremity POST-OPERATIVE DIAGNOSIS: G90.522 Complex regional pain syndrome type 1 of left lower extremity ATTENDING PHYSICIAN: Alex Sanchez MD,PhD MAMMAL KEEPER: Fellow Aleta Rebollar ANESTHESIA: Sedation delivered by [...] sedation. Ms. Farah was escorted to the [facility] Procedure R oom, where she was [...] patient. Ms. Farah was transported to the [facility] Comprehensive Pain Center post-procedure recovery area where she made an uneventful recovery. Programming was performed in the PACU with aid of the device technical sales representatives and Ms. Susie faust was sent home with a few programs . This was a unilateral procedure. Alex Sanchez MD,PhD was present for the entire procedure. Images were saved, and sent to [employer]. Ms. Farah was transported to the [facility] [place] post-procedure recovery area. She had an uneventful [...] Aleta Rebollar MD PAIN CENTER AT [facility] 15TH FLOOR [address] [facility] Mail Code: 15[address] [place] [address] documented in t his encounter Plan of Treatment Not on filedocumented as of this encounter Procedures + +--------+ + + + | Procedure Name | Priori | Date/Time | Associated Diagnosis | Comments | | | ty | | | | + +--------+ + + + | UT MOD SEDATION | Routin | 09/25/2018 | Complex regional | | | >=5YRS SAME MD/QUAL | e | 7:31 PM | pain syndrome type 1 | | | PROV; INIT 15 MIN | | PST | of left lower | | | | | | extremity | | + +--------+ + + + | UT PERCUT IMPLNT | Routin | 09/25/2018 | [...]
--- OUTSIDE RECORDS SUMMARY | ~2020-03-23 | XMS | Encounter Summary ---
Demographics + + + | Address | [address] | | | [place] [address] | + + + | Home Phone [...] Team Providers + +------+ + | Care Bariatric Physician Name | Role | Phone | [...] | CRPS | Dale Martinez MD | [facility] [address] | | | | | (complex | [address] | [address] | | | | | regional | [address] | [address] | | | | | pain | Mailstop | Acosta Vanegas, | | | | | syndrome), | [id number] | Basement | | | | | lower limb | [place], [place] | [place], [place] | | | | | Procedures | [address] | [address] | | | | | NM BONE &/OR | Phone: | Phone: | | | | | JOINT | [phone] | [phone] | | | | | IMAGING 3 | Fax: | Fax: | | | | | PHASE | [phone] | [phone] | +--------+--------+ + + + + Consult [...] | | | regional | [place] | [address] | | | | | pain | FAMILY | Mailstop | | | | | syndrome), | MEDICINE P | [address]103 | | | | | lower limb | [address] | [place], [place] | | | | | Gait | [place], | [address] | | | | | disturbance | [place] [address] | Phone: | | | | | Muscle pain | Phone: | [phone] | | | | | Procedures | [phone] | Fax: | | | | | REQUEST TO | Fax: | [phone] | | | | | SURGERY | [phone] | | | | | | FIELD MARKETING SPECIALIST | | | +--------+--------+ + + + + Consultation (Routine) +--------+--------+ + + + + | Status | Reason | Specialty | Diagnoses / | Referred By | Referred To | | | | | Procedures | Contact | Contact | +--------+--------+ + + + + | Closed | | Psychology / | Diagnoses | Beulah, | Agricultural Technical Officer Psych | | | | Pain | CRPS | Dale Martinez MD | [facility] [address] | | | | Management | (complex | [address] | | | | | regional | [address] | Mailcode: | | | | | pain | Mailstop | [facility] | | | | | syndrome), | [id number] | for Health | | | | | lower limb | [place], [place] | and Healing, | | | | | Gait | [address] | Building 1, | | | | | disturbance | Phone: | 15th Floor | | | | | Muscle pain | [phone] | [place], [place] | | | | | Procedures | Fax: | [address] | | | | | CONSULT TO | [phone] | Phone: | | | | | PAIN CENTER | | [phone] | | | | | | | Fax: | | | | | | | [phone] | +--------+--------+ + + + + Physical Therapy (Routine) +--------+--------+ + + + + | Status | Reason | Specialty | Diagnoses / | Referred By | Referred To | | | | | Procedures | Contact | Contact | +--------+--------+ + + + + | Closed | | Physical | Diagnoses | Beulah, | Edu Pt Agricultural Technical Officer | | | | Therapy | CRPS | Dale Martinez MD | [facility] [address] | | | | | (complex | [address] | | | | | regional | [address] | Mailcode: | | | | | pain | Mailstop | [facility] | | | | | syndrome), | [id number] | for Health | | | | | lower limb | [place], [place] | and Healing, | | | | | Gait | [address] | Building 1 | | | | | disturbance | Phone: | [place], [place] | | | | | Muscle pain | [phone] | [address] | | | | | Procedures | Fax: | Phone: | | | | | PHYSICAL | [phone] | [phone] | | | | | THERAPY | [...] | | | 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 | FAMILY | Mailstop | | | | | of lower | MEDICINE P | [address] | | | | | limb | [address] | [place], [place] | | | | | | [place], | [address] | | | | | | [place] [address] | Phone: | | | | | | Phone: | [phone] | | | | | | [phone] | Fax: | | | | | | Fax: | [phone] | | | | | | [phone] | | +--------+--------+ + + + + Encounter Details +--------+---------+ + + + | Date | Type | Department | Care Team | Description | +--------+---------+ + + + | 02/13/ | Office | [facility] | Dale Cantu, | CRPS (complex | | 2011 | Visit | Pain Center at | MD [address] | regional pain | | | | [facility] | [address] [id number] | syndrome), lower | | | | [address] | [place], [place] | limb; Gait | | | | Mailcode: CH15P | [address] | disturbance; Muscle | | | | [facility] | [phone] | pain; Adjustment | | | | and Healing, | | reaction | | | | Building | | | | | | Floor [place], [place] | | | | | | [address] | | | | | | [phone] | | | +--------+---------+ + + + [...] Diagnostic evaluation: Records from CRPS program at [facility]. 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 2. [...] employed by the psychologists here at the [facility]. 2.2 Physical therapy can reduce pain and improve functional status. Suggest Guillermo Sanon . 3. Medication suggestions: 3.1 Continue titrating up duloxetine. 3.2 As for any patient being managed with chronic opioids, we do recommend that the patien t have a signed [facility] Material Risk Notice, agree to whatever [...] procedure to assess the effects in detail. [facility] Pre-Procedure Instructions: The procedure you discussed with your doctor is called: LUMBAR SYMPATHETIC BLOCK. Please m sintia sure this is scheduled with the Cream Dipper. Please bring a bus driver school with you. We may give you medications that make you drowsy or otherw ise unsafe to drive. If you do not have a bus driver school, we will not be able to do [...] PLEASE CONTACT THE COMPREHENSIVE PAIN CENTER AT [phone] ([phone]) FOR QUESTIONS OR IF YOU NEED TO CANCEL YOUR APPOINTMENT. [facility] Pain Center documented in this [...] pain management consultation by BJORN Mi [place] [facility] [address] [place] [address] Reason for visit Chief Complaint Patient presents with Pain in left leg Ankle pain left History of Present Illness: Tracie Farah is a 21 year old female with pain locate d in left lower extremity. She has been diagnosed with CRPS. She is referred to [facility] for consultation regarding this ongoing pain problem with the following spec [facility] issues to be addressed: Other options [...] by several orthopedic surgeons, Dr. Charles in [place], physical therapy, Occupational Therapy. Diagnostic and radiologic [...] no pain relief. Admitted to the inpatient [facility] program for 1 month in the [...] entin, pregabalin, topiramate, tramadol, multiple opioids. Current Mcintosh about 6-8/day. St arting duloxetine, at 30 mg/day. She feels that the most effective medication treatments ar e or have been opioids. As a result of her pain, Ms. Farah notes multiple changes in her life, including: "I don 't have a life, can't work, can't go to school." Poor mood, sleep, activity. Using crutche s recently because of pain flare. 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 Goes to [employer] with a light load. Has been working at [employer], can' t work on [employer]. Has roommates. Current Medication List 02/14/12 9:50 [...] Anaphylaxis As part of today's visit the [facility] new patient questionnaire was [...] you expect from your visits to the [facility] ? Other (describe): ketamine, [...] ricks, the pediatric inpatient pain program at [facility], and two attempted lumbar sympathetic blocks. [...] CRPS patients (Loretta A, et al. Katrina Code Clerk Med. 2010;152: 152-158). Other treatment options for the future: Spinal cord stimulation (SCS) has good evidence f or providing victorian literature professor relief in CRPS (Complex Regional Pain Syndrome) [...] Diagnostic evaluation: Records from pain program at [facility] Kenneth. Suggest three ph ase bone scan-- [...] employed by the psychologists here at the [facility]. ORDER PLACED 2.2 Physical therapy can reduce pain and improve functional status. Suggest Guillermo Sanon . ORDER PLACED 3. Medication suggestions: 3.1 Continue titrating up duloxetine. 3.2 As for any patient being managed with chronic opioids, we do recommend that the patien t have a signed [facility] Material Risk Notice, agree to whatever [...] her PCP, BJORN Villanueva. DALE CANTU MD Optical Sales Associate, [facility] Zyglo Technician, Pain Medicine Professor, Anesthesiology & Perioperative Medicine [...]
--- OUTSIDE RECORDS SUMMARY | ~2020-03-23 | XMS | Encounter Summary ---
Demographics + + + | Address | [address] | | | [place] [address] | + + + | Home Phone [...] Providers + +------+ + | Care Machine Clothing Worker Name | Role | Phone | [...]
--- OUTSIDE RECORDS SUMMARY | ~2020-03-23 | XMS | Encounter Summary ---
Demographics + + + | Address | [address] | | | [place] [address] | + + + | Home Phone [...] Team Providers + +------+ + | Care Marketing Operations Assistant Name | Role | Phone | + +------+ + | Jusot Vazquez MD | PCP | | + +------+ + Encounter Details +--------+ + + + + | Date | Type | Department | Care Team | Description | +--------+ + + + + | 10/09/ | Telephone | [facility] | Alex Sanchez, | | | 2018 | | Pain Center at | ,PhD [address] | | | | | [facility] | [facility] [address] | | | | | [address] | [facility] [place] | | | | | Mailcode: CH15P | [address] | | | | | [place] for [facility] | [phone] | | | | | and Healing, | | | | | | | | | | | | Floor [place], [place] | | | | | | [address] | | | | | | [phone] | | | +--------+ + + + [...]
--- OUTSIDE RECORDS SUMMARY | ~2020-03-23 | XMS | Encounter Summary ---
Demographics + + + | Address | [address] | | | [place] [address] | + + + | Home Phone [...] Team Providers + +------+ + | Care Cnc Machinist 2Nd Shift Name | Role | Phone | + [...] + + | 09/14/ | Telephone | [facility] Comprehensive | Alex Sanchez, | Education procedure | | 2018 | | Pain Center at | ,PhD [address] | (preprocedure | | | | [facility] | [facility] [address] | education SCS) | | | | [address] | [place], [place] | | | | | Mailcode: CH15P | [address] | | | | | [facility] | [phone] | | | | | and Martina, | | | | | | | | | | | | Floor [place], [place] | | | | | | [address] | | | | | | [phone] | | | +--------+ + + + [...]
--- OUTSIDE RECORDS SUMMARY | ~2020-03-23 | XMS | Encounter Summary ---
Demographics + + + | Address | [address] | | | [place] [address] | + + + | Home Phone [...] Team Providers + +------+ + | Care Virtualization Engineer Name | Role | Phone | [...] [place] | | | | | [facility] | [address] [id number] | | | | | [address] | [place], [place] | | | | | Mailcode: CH15P | [address] | | | | | [facility] | [phone] | | | | | and Healing, | | | | | | [facility] | | | | | | [place], [place] | | | | | | [address] | | | | | | [phone] | | | +--------+ + + + [...]
--- OUTSIDE RECORDS SUMMARY | ~2020-03-23 | XMS | Encounter Summary ---
Demographics + + + | Address | [address] | | | [place] [address] | + + + | Home Phone [...] Providers + +------+ + | Care Maintenance Of Way Supervisor Name | Role | Phone | [...] | | | | | constipation | [facility] [place] | for Health | | | | | type | [address] | and Healing, | | | | | Procedures | | Building 2 | | | | | CONSULT TO | | [place], [place] | | | | | GI PROCEDURE | | [address] | | | | | UNIT: | | Phone: | | | | | ANORECTAL | | [phone] | | | | | MANOMETRY | | Fax: | | | | | [place] ANAL | | [phone] | | | | | PRESSURE | [...] | ogy | | V[place], | [facility] [address] | | | | | Gastroparesi | Allegra K, | [address] | | | | | s | [place] [address] | Mailcode: | | | | | | [address] | Center for | | | | | | [place], | Health and | | | | | | [place] [address] | Healing, | | | | | | Phone: | Building 2 | | | | | | [phone] | [place], [place] | | | | | | Fax: | [address] | | | | | | [phone] | Phone: | | | | | | | [phone] | | | | | | | Fax: | | | | | | | [phone] | +--------+--------+ + + + + Encounter Details +--------+---------+ + + + | Date | Type | Department | Care Team | Description | +--------+---------+ + + + | 08/10/ | Office | Digestive Health | Ava Carbajal | Constipation, | | 2016 | Visit | Center at [facility] [address] | MD Melissa | unspecified | | | | [address] | | constipation type | | | | Mailcode: Center | | (Primary Dx) | | | | for Health and | | | | | | Healing, Building 2 | | | | | | [place], [place] | | | | | | [address] | | | | | | [phone] | | | +--------+---------+ + + + [...] in their attached note. Celia Lin MD Internal Salessenior behavioral scientist Division of Gastroenterology & Hepatology [facility] va Carbajal MD - 08/09/2016 8:40 PM PDT Gastroenterology Initial Clinic Note 08/09/2016 CHIEF COMPLAINT/IDENTIFICATION: "Gastroparesis"-Nausea emesis and abdominal pain -SECOND O GERMAINE Dr[facility]: HANDY Villalpando HISTORY OF PRESENT [...] Patient is seen by Dr. Flores in [place] [facility] at [facility]. Patient has hx of GERD which was [...] had CT abdomen w contrast done at [facility] on 10/23/15 showing large stool burden [...] GI MDS: [facility] LABS: -increased CRP 06/19/16: Lipase-normal (8) [...] form versus functional syndrome. Would also con hardener helper GERD as a cause for her nausea [...]
--- OUTSIDE RECORDS SUMMARY | ~2020-03-23 | XMS | Encounter Summary ---
Demographics + + + | Address | [address] | | | [place] [address] | + + + | Home Phone [...] Team Providers + +------+ + | Care Equine Internship Name | Role | Phone | + +------+ + | Justo Vazquez MD | PCP | | + +------+ + Encounter Details +--------+ + + + + | Date | Type | Department | Care Team | Description | +--------+ + + + + | 05/18/ | Telephone | [facility] | Alex Sanchez, | | | 2019 | | Pain Center at | ,PhD [address] | | | | | [facility] | [facility] [address] | | | | | [address] | [facility] [place] | | | | | Mailcode: CH15P | [address] | | | | | [place] for [facility] | [phone] | | | | | and Healing, | | | | | | | | | | | | Floor [place], [place] | | | | | | [address] | | | | | | [phone] | | | +--------+ + + + [...]
--- OUTSIDE RECORDS SUMMARY | ~2020-03-23 | XMS | Encounter Summary ---
Demographics + + + | Address | [address] | | | [place] [address] | + + + | Home Phone [...] Team Providers + +------+ + | Care Candy Supervisor Name | Role | Phone | + +------+ + | Justo Vazquez MD | PCP | | + +------+ + Encounter Details +--------+ + + + + | Date | Type | Department | Care Team | Description | +--------+ + + + + | 09/25/ | Pharmacy | [facility] | | | | 2018 | Visit | & Healing Pharmacy | | | | | | [address] | | | | | | Mailcode: [place] | | | | | | [facility] Health and | | | | | | Healing, Building 1 | | | | | | [place], [place] | | | | | | [address] | | | | | | [phone] | | | +--------+ + + + [...]
--- OUTSIDE RECORDS SUMMARY | ~2020-03-23 | XMS | Encounter Summary ---
Demographics + + + | Address | [address] | | | [place] [address] | + + + | Home Phone [...] Providers + +------+ + | Care Freight Service Inspector Name | Role | Phone | + +------+ + | Justo Vazquez MD | PCP | | + +------+ + Encounter Details +--------+ + + + + | Date | Type | Department | Care Team | Description | +--------+ + + + + | 05/14/ | Telephone | [facility] | Alex Sanchez, | | | 2019 | | Pain Center at | ,PhD [address] | | | | | [facility] | [facility] [address] | | | | | [address] | [place], [place] | | | | | Mailcode: CH15P | [address] | | | | | [place] for [facility] | [phone] | | | | | and Healing, | | | | | | | | | | | | Floor [place], [place] | | | | | | [address] | | | | | | [phone] | | | +--------+ + + + [...]
--- OUTSIDE RECORDS SUMMARY | ~2020-03-23 | XMS | Encounter Summary ---
Demographics + + + | Address | [address] | | | [place] [address] | + + + | Home Phone [...] Team Providers + +------+ + | Care Sleep Medicine Physician Name | Role | Phone | [...] Pain Medicine | Diagnoses | Chasity, | Program Director Scouting Ch[facility] | | | | / Pain | Abdominal | MD Kenny | [address] | | | | Management | pain, | [address] | Ave | | | | | unspecified | [address] | Mailcode: | | | | | location | Rd | [facility] Center | | | | | Procedures | [place], [place] | for Health | | | | | CONSULT TO | [address] | and Healing, | | | | | PAIN | | Building | | | | | MANAGEMENT | | 1,15th Floor | | | | | | | [place], [place] | | | | | | | [address] | | | | | | | Phone: | | | | | | | [phone] | | | | | | | Fax: | | | | | | | [phone] | +--------+--------+ + + + + Reason [...] Order; Abdominal | | 2016 | | [place] [address] [address] | | pain | | | | [address] | | | | | | Mailcode: [place] | | | | | | [facility] and | | | | | | Martina, [facility] 2 | | | | | | [place], [place] | | | | | | [address] | | | | | | [phone] | | | +--------+ + + + [...]
--- OUTSIDE RECORDS SUMMARY | ~2020-03-23 | XMS | Encounter Summary ---
Demographics + + + | Address | [address] | | | [place] [address] | + + + | Home Phone [...] + +------+ + | Care Law Enforcement Director Name | Role | Phone | [...] + + | 08/08/ | Emergency | [facility] Emergency | Mable Villarreal MD | | | 2015 | | Department [address] | [address] [facility] | | | | | [address] | [address] | | | | | [facility] | [place], [place] | | | | | [place], [place] | [address] | | | | | [address] | [phone] | | | | | [phone] | | | | | | | [...] about "Gastroparesis: Care Instructions", log into your Travel[employer] account at [email or web address]. You can enter M106 in the BESOS" search box. Not on [employer]? Review the [employer] section of your After Visit Summary for directions on ho w to sign up. [id number] [employer]. Care instructions adapted under license by [facility] [employer] [place]. This care instruction is for use with your licensed healthcar e professional. If you have questions about a medical condition or this instruction, always ask your healthcare professional. [employer] disclaims any warranty or liabili ty for your use of this information. Content Version: 11.0.588532; Current as of: October 03, 2015 documented [...] | | | LABORATORY | | | [facility] [facility] | | | SERVICES, | | [...] | + + + + + | [facility] | [address] | [place] [address] | | | SERVICES, CORE | [address]LLER[address] [...] | | | IMPRESSION | by: ISABEL BASSTET | | OF | | | | [...] DEPT OF | [address] | [place], [place] | | | CARDIOLOGY | [address] | [address] | | + + + + + [...] | + + + + + | [facility] | [address] | [place] [address] | | | SERVICES, CORE | [address] [...] [facility] | [address] | [place] [address] | | | SERVICES, LILLIAN | GUILLERMO [...] KEVIN SHAH | [address] | [place] [address] | | | SERVICES, CORE | [address] [...] | + + + + + | [facility] | [address] | [place] [address] | | | [facility] | [address] | | | + [...] + | [place] [facility] [place] - | [address] | [place] [address] | | | [place] | | | | + + + [...] [facility] | [address] | [place] [address] | | | SERVICES, CORE | [address] [...] | + + + + + | [facility] | [address] | [place] [address] | | | SERVICES, CORE | [address] | | | + + + + + LIPASE, PLASMA (08/08/2016 2:22 PM PDT) + +---------+ + + + | Component | Value | Ref Range | Performed | Pathologist | | | | | At | Signature | + +---------+ + + + | LIPASE | 116 (L) | 152 - 353 U/L | [facility] | | | (LAB) | [...] | + + + + + | [facility] | [address] | [place] [address] | | | SERVICES, CORE | [address] [...] | | | LABORATORY | | | [address] | | | SERVICES, | | [...] | + + + + + | [facility] | [address] | [place] [address] | | | SERVICES, CORE | [address] | | | + + + + + ED INFORMATION EXCHANGE (08/08/2016 12:21 PM PDT) + + + + + + | Component | Value | Ref Range | Performed | Pathologist | | | | | At | Signature | + + + + + + | [facility] | [id number] | | COLLECTIVE | | | | [id number] | | MEDICAL | | | | [...] | | | 08/08/2016 12:21 [facility] and | | | [facility] [place] [address]. abd pain | | | 08/04/2016 03:50 [facility] | | | [place] Emergency ABD PAIN,VOMITING 06/26/2016 22:44 | | | [facility] [place] | | | Emergency -Acquired absence of other specified parts of | | | | | | digestive | | | tract | | | | | | -Gastroparesis | | | | | | -Unspecified abdominal pain | | | | | | -Gastro-esophageal reflux disease without | | | esophagitis | | | | | | -Other exterminator helper (current) drug therapy 06/22/2016 17:35 | | | [facility] [place] [facility] | | Emergency -abd pain, "I have gastroparesis", since , seen | | | | | | at St | | | [facility] yesterday. has been to the er | | | | | | several times | | | | | | -Abdominal Pain | | | | | | -Gastroparesis 06/19/2016 | | | 04:51 [facility] [place] | | | [place] Emergency -Gastroparesis | | | | | | -Unspecified abdominal pain | | | | | | -Other exterminator helper | | | (current) drug therapy | | | | | | -Acquired absence of other specified parts of | | | | | | digestive tract | | | 06/18/2016 07:18 [facility] | | | [place] Emergency [...] Location ------ --------- 1 | | | [facility] 1 | | | [facility] 8 [facility] 10 | | | Total [...] COLLECTIVE MEDICAL | [address] | [place], [place] | [phone] | | TECHNOLOGIES | [address] | [address] | | + + + + + [...]
--- OUTSIDE RECORDS SUMMARY | ~2020-03-23 | XMS | Encounter Summary ---
Demographics + + + | Address | [address] | | | [place] [address] | + + + | Home Phone [...] Providers + +------+ + | Care Employment Services Director Name | Role | Phone [...] | Pain Center at | [address] | | | | | [facility] | [address] | | | | | [address] | [place], [place] | | | | | Mailcode: [facility] | [address] | | | | | [facility] | [phone] | | | | | and Healing, | | | | | | [facility] | | | | | | [place], [place] | | | | | | [address] | | | | | | [phone] | | | +--------+ + + + [...]
--- OUTSIDE RECORDS SUMMARY | ~2020-03-23 | XMS | Encounter Summary ---
Demographics + + + | Address | [address] | | | [place] [address] | + + + | Home Phone [...] Team Providers + +------+ + | Care Middle School Guidance Counselor Name | Role | Phone | + +------+ + | Justo Vazquez MD | PCP | | + +------+ + Encounter Details +--------+------+ + + + | Date | Type | Department | Care Team | Description | +--------+------+ + + + | 04/23/ | Lab | Laboratory at [facility] | | Other chronic pain ; | | 2018 | | [address] | | Complex regional | | | | [place], [place] | | pain syndrome type 1 | | | | [address] | | of left lower | | | | [phone] | | extremity | +--------+------+ + + [...] [facility] | [address] | [place] [address] | | | SERVICES, LILLIAN | GUILLERMO [...]
--- OUTSIDE RECORDS SUMMARY | ~2020-03-23 | XMS | Clinical Summary ---
Demographics + + + | Address | [address] | | | [place] [address] | + + + | Home Phone [...] | Author | [facility] | + + + | Organization | [facility] | + + + | Address | Unknown | + + + | Phone | Unavailable | + + + Support + + +---------+ + | Name | Relationship | Address | Phone | + + +---------+ + | Patricia Colin | ECON | Unknown | | + + +---------+ + Care Team Providers + +------+ + | Care Patient Services Representative Name | Role | Phone | + +------+ + | Justo Vazquez MD | PCP | | + +------+ + Source Comments KEVIN is fully live on both [facility] Ambulatory and [facility] InPatient.[facility] Allergies + + + + [...] Noted Date | + + + | [facility] CLINICAL PROTOCOL PATIENT (PETER) - Implanted Spinal Cord | 12/14/2018 | | Stimulator | | + + + + + | Overview: Patient has an implanted Makoo spinal | | cord stimulator. Model#: [id number]. Contact [phone] for | | technical assistance.Contraindications:Sources of strong [...] | Right: | BARD | | | [id number] | | Port-10/05/2016Implanted: | | Chest | | | | 0 / | | 10/05/2016 by Obdulio Simpson, | | | | | | /VIKY | | (Quantity not on file) | | | | | | 204 | + +------+--------+ +--------+--------+--------+ + + | Description:Not Power | | Injectable, Progress record | | faxed from [facility] | | Hospital in [place], [place], | | [facility] RN | + + + +---+---+ +---+--------+--------+ | Slimtip DrgImplanted: Qty: 1 | | | ST JESSICA | | 01/06/ | [id number] | | on 12/05/2018 by Daniel, | | | MEDICAL [place] | | 2020 | 0-50A | | Alex Alba MD,PhD at [facility] | | | | | | /[id number] | | INPATIENT REV LOC | | | | | | 371 / | + +---+---+ +---+--------+--------+ + + | Description:Level 4 | + + + +---+---+ +---+---+--------+ | Slimtip DrgImplanted: Qty: 1 | | | ST JESSICA | | | [id number] | | on 12/05/2018 by Daniel, | | | MEDICAL [place] | | | 0-50A | | Alex Alba MD,PhD at [facility] | | | | | | /[id number] | | INPATIENT REV LOC | | [...] / | | Alex Alba MD,PhD at [facility] | | | | | [...] | | | | | | | [address] | | + +--------+ +--------+ + +--------+ | HEALTH WORKERS MEDICAID | HEALTH WORKERS | [id number] | 11/14/19 | | | [...] | 1990 | [phone] | [place] [address] | | | evita | | | [...]
--- OUTSIDE RECORDS SUMMARY | ~2020-03-23 | XMS | Encounter Summary ---
Demographics + + + | Address | [address] | | | [place] [address] | + + + | Home Phone [...] Team Providers + +------+ + | Care Hydro Technician Name | Role | Phone | + +------+ + | Justo Vazquez MD | PCP | | + +------+ + Encounter Details +--------+ + + + + | Date | Type | Department | Care Team | Description | +--------+ + + + + | 01/12/ | Telephone | Dig[facility]ive [facility] | Kenny Gaspar MD | | | 2016 | | [place] [facility] [address] | | | | | | [address] | | | | | | Mailcode: [place] | | | | | | for Health and | | | | | | Healing, [address] | | | | | | [place], [place] | | | | | | [address] | | | | | | [phone] | | | +--------+ + + + [...]
--- OUTSIDE RECORDS SUMMARY | ~2020-03-23 | XMS | Encounter Summary ---
Demographics + + + | Address | [address] | | | [place] [address] | + + + | Home Phone [...] Providers + +------+ + | Care Software Engineer Web Applications Name | Role | Phone | + [...] | Diagnoses | Beulah | Edu Pt Customer Development Manager | | | | Therapy | CRPS | Janak Martinez MD | [address] | | | | | (complex | [address] | | | | | regional | [address] | Mailcode: | | | | | pain | Mailstop | [facility] | | | | | syndrome), | [id number] | for Health | | | | | lower limb | [place], [place] | and Healing, | | | | | Gait | [address] | Building [address] | | | | | disturbance | Phone: | [place], [place] | | | | | Muscle pain | [phone] | [address] | | | | | Procedures | Fax: | Phone: | | | | | PHYSICAL | [phone] | [phone] | | | | | THERAPY | [...] regional pain | | | | [facility] | [place] [address] | syndrome), lower | | | | [address] | [phone] | limb (Primary Dx) | | | | Mailcode: [facility] | | | | | | [facility] | | | | | | and Healing, | | | | | | [address] | | | | | | Floor [place], [place] | | | | | | [address] | | | | | | [phone] | | | +--------+---------+ + + + [...] might be different f rom the original. [id number] BRODY FARAH Date of : 1990 Start of care: 02/14/2012 Date of onset: 02/14/2012 Referring/Attending Practitioner: Janak Riojas MD . Primary/Referral Diagnosis/ICD-9: 355.71B CRPS (complex regional pain syndrome), lower limb Insurance: Payor: [facility] Plan: BCBS OUT OF STATE Product Type: PP O Service period from: 02/14/2012 to: 08/12/2012 Number visits used/authorized: 11/25 [facility] PHYSICAL THERAPY INITIAL EVALUATION [...] no pain relief. Admitted to the inpatient [facility] program for 1 month in [...] Diagnostic evaluation: Records from CRPS program at [facility]. Suggest three phase bone sca [...] by the psychologists here at the [facility]. 2.2 Physical therapy can reduce pain and improve functional status. Suggest Guillermo Sanon. 3. Medication suggestions: 3.1 Continue titrating up duloxetine. 3.2 As for any patient being managed with chronic opioids, we do recommend that the patient have a signed [facility] Material Risk Notice, agree to whatever [...] and hemr oidectomy. Social History: lives in [place], 22 years old, not working currently, in [...] or concerns about therapy: she lives in [place]. She is r equesting family members or [...] provided with a token and bocanegra for [facility] site. Treatment began: 1345hrs Treatment ended: 1430hrs Manual therapy: 0min Therapeutic exercise: 15 min ASSESSMENT: pt presents with 10-year history of ankle pain post trauma and multiple surgeri es. She thinks she developed CRPS in 2004. She was diagnosed with CRPS and spent a month in the program at [facility] working through aggressive desensitization and activation which prov ided no lasting benefit. She lives in [place], is going to school, and ambulates with [...] She can work with her PT in [employer]. CLINICAL PRIORITIES: 1-follow up with Dr Riojas [...] change in their status. Guillermo Sanon MSPT [facility] Outpatient Rehabilitation Services Mailcode: [facility] [address] [facility], [address] [place] [address] documented in this encounter Plan of Treatment Not on filedocumented as of this encounter Procedures + +--------+ + + + | Procedure Name | Priori | Date/Time | Associated Diagnosis | Comments | | | ty | | | | + +--------+ + + + | [place] THERAPEUTIC | Routin | 02/16/2012 | CRPS (complex | | | EXERCISES | e | 3:34 PM | regional pain | | | | | PDT | syndrome), lower | | | | | | limb | | + +--------+ + + + | [place] PHYS THERAPY | Routin | 02/16/2012 | [...]
--- OUTSIDE RECORDS SUMMARY | ~2020-03-23 | XMS | Encounter Summary ---
Demographics + + + | Address | [address] | | | [place] [address] | + + + | Home Phone | | + + + | Preferred Language | Unknown | + + + | Marital Status | Single | + + + | Temple Affiliation | 1073 | + + + | Race | Unknown | + + + | Ethnic Group | Unknown | + + + Author + + + | Author | [facility] | | | and [place] | + + + | Organization | [facility] | | | and [place] [...] [place] | | | | | [address] | | + + + + + | Bryant Farah | ERICKA | Unknown | | + + + + + Care Team Providers + +------+ + | Care Tuft Machine Operator Name | Role | Phone | + +------+ + PCP | Unavailable | + +------+ + Encounter Details +--------+ + + + + | Date | Type | Department | Care Team | Description | +--------+ + + + + | 08/11/ | Hospital | [facility] | | | | 1998 | Encounter | MED CTR XRAY [address] | | | | | | [address] | | | | | | [place] [address] | | | | | | [phone] | | | +--------+ + + + [...]
--- OUTSIDE RECORDS SUMMARY | ~2020-03-23 | XMS | Encounter Summary ---
Demographics + + + | Address | [address] | | | [place] [address] | + + + | Home Phone [...] Team Providers + +------+ + | Care Cardiology Physician Assistant Name | Role | Phone | + +------+ + | Justo Vazquez MD | PCP | | + +------+ + Encounter Details +--------+ + + + + | Date | Type | Department | Care Team | Description | +--------+ + + + + | 08/03/ | Telephone | [facility] | Alex Sanchez, | | | 2018 | | Pain Center at | ,PhD [address] | | | | | [facility] | [facility] | | | | | [address] | [facility] [place] | | | | | Mailcode: CH15P | [address] | | | | | [place] for [facility] | [phone] | | | | | and Healing, | | | | | | | | | | | | Floor [place], [place] | | | | | | [address] | | | | | | [phone] | | | +--------+ + + + [...]
--- OUTSIDE RECORDS SUMMARY | ~2020-03-23 | XMS | Encounter Summary ---
Demographics + + + | Address | [address] | | | [place] [address] | + + + | Home Phone [...] Providers + +------+ + | Care Oracle Application Architect Name | Role | Phone | [...] | | 2017 | | Center at [facility] [address] | MD Melissa | Marker instructions) | | | | [address] | | | | | | Mailcode: Center | | | | | | for Health and | | | | | | [facility], [place] [address] | | | | | | [place], [place] | | | | | | [address] | | | | | | [phone] | | | +--------+ + + + [...]
--- OUTSIDE RECORDS SUMMARY | ~2020-03-23 | XMS | Encounter Summary ---
Demographics + + + | Address | [address] | | | [place] [address] | + + + | Home Phone [...] Team Providers + +------+ + | Care Stapling Machine Operator Name | Role | Phone [...] + + | 12/05/ | Surgery | [facility] | Alex Sanchez, | BILATERAL DORSAL | | 2019 | | Center for Health | ,PhD [address] [facility] | ROOT GANGLION SPINAL | | | | and Healing Surgery | [address] | CORD STIMULATOR | | | | Center Admitting | [place], [place] | IMPLANT LUMBAR; | | | | Desk Located on the | [address] | POSTERIOR | | | | 4th floor [address] | [phone] | | | | | [address] [place], | | | | | | [place] [address] | | | +--------+---------+ + + + [...] s/p successful DRG trial lead system with Screen Tonic System on 09/25/2018. No changes in H&P, [...] OPERATIVE NOTE Date: December 05, 2018 Location: [facility] [place] | | | Tracie Farah [id number] :1990, presents to clinic | | | for: Dorsal root ganglion stimulator implant PROCEDURE: Dorsal | | | root ganglion stimulator implant PRE-OPERATIVE DIAGNOSIS: Complex | | | regional Pain syndrome type 1 of left lower extremity | | | POST-OPERATIVE DIAGNOSIS: Complex regional Pain syndrome type 1 of | | | left lower extremity ATTENDING PHYSICIAN: Alex Sanchez | | | FERMENTATION SCIENTIST: Arben Valerio MD ANESTHESIA: sedation by IVIS Cole | | | Carmen, supervised by manufacturing helper Ilir Valdes. | | | FINDINGS: Appropriate [...] sedation. Ms. Farah was escorted to the [facility] | | | [place], where [...] to the | | | [facility] appeals representative. A test stimulation was performed and [...] recovery. Images were saved, and sent to [employer]. | | | Alex Sanchez (attending) was present for the entire procedure. | | | Arben Valerio MD I was present for the entire procedure | | | (spinal cord stimulator implantation with DRG leads at left L4 and | | | L5) and all bocanegra elements of this visit. I reviewed the | | | documentation of the other MANAGER ER providers and concur with | | | Iman's findings. I edited his note. Alex Sanchez, | | | ,PhD Program Scheduler Anesthesiology and Pain Management | | | [facility] | | + + + HCG [...] | [address] [facility] | [place] [address] | | | OF CARE TESTS | [...]
--- OUTSIDE RECORDS SUMMARY | ~2020-03-23 | XMS | Encounter Summary ---
Demographics + + + | Address | [address] | | | [place] [address] | + + + | Home Phone [...] Team Providers + +------+ + | Care Telephone Advice Nurse Name | Role | Phone | [...] | Center at [facility] [address] | MD Melissa | | | | | [address] | | | | | | Mailcode: Center | | | | | | for Health and | | | | | | Healing, Building 2 | | | | | | [place], [place] | | | | | | [address] | | | | | | [phone] | | | +--------+ + + + [...]
--- OUTSIDE RECORDS SUMMARY | ~2020-03-23 | XMS | Encounter Summary ---
Demographics + + + | Address | [address] | | | [place] [address] | + + + | Home Phone [...] Team Providers + +------+ + | Care Labor Relations Supervisor Name | Role | Phone | [...] + + | 03// | Telephone | [facility] | Alex Sanchez, | Medication (clarify | | 2018 | | Pain Center at | ,PhD [address] | sig on Ketamine) | | | | [facility] | [facility] | | | | | [address] | [place], [place] | | | | | Mailcode: CH15P | [address] | | | | | [facility] | [phone] | | | | | and Healing, | | | | | | Building | | | | | | Floor [place], [place] | | | | | | [address] | | | | | | [phone] | | | +--------+ + + + [...]
--- OUTSIDE RECORDS SUMMARY | ~2020-03-23 | XMS | Encounter Summary ---
Demographics + + + | Address | [address] | | | [place] [address] | + + + | Home Phone [...] Team Providers + +------+ + | Care Correspondence Renew Clerk Name | Role | Phone | + +------+ + | Justo Vazquez MD | PCP | | + +------+ + Encounter Details +--------+ + + + + | Date | Type | Department | Care Team | Description | +--------+ + + + + | 12/07/ | Telephone | [facility] | Alex Sanchez, | | | 2019 | | Pain Center at | ,PhD [address] | | | | | [facility] | [facility] [address] | | | | | [address] | [place], [place] | | | | | Mailcode: CH15P | [address] | | | | | [place] for [facility] | [phone] | | | | | and Healing, | | | | | | | | | | | | Floor [facility] [place] | | | | | | [address] | | | | | | [phone] | | | +--------+ + + + [...]
--- OUTSIDE RECORDS SUMMARY | ~2020-03-23 | XMS | Encounter Summary ---
Demographics + + + | Address | [address] | | | [place] [address] | + + + | Home Phone [...] Team Providers + +------+ + | Care Radiator Mechanic Name | Role | Phone | + +------+ + | Justo Vazquez MD | PCP | | + +------+ + Encounter Details +--------+ + + + + | Date | Type | Department | Care Team | Description | +--------+ + + + + | 09/27/ | Telephone | [facility] | Ilene Bright, | | | 2017 | | Pain Center at | OVERSEAMER [address] | | | | | [facility] | [place], [place] | | | | | [address] | [address] | | | | | Mailcode: CH15P | [phone] | | | | | [facility] | | | | | | and Healing, | | | | | | | | | | | | Floor [place], [place] | | | | | | [address] | | | | | | [phone] | | | +--------+ + + + [...]
--- OUTSIDE RECORDS SUMMARY | ~2020-03-23 | XMS | Encounter Summary ---
Demographics + + + | Address | [address] | | | [place] [address] | + + + | Home Phone [...] Team Providers + +------+ + | Care Utility Maintenance Worker Name | Role | Phone | [...] + | 12/26/ | Refill | [facility] | Alex Sanchez, | Refill Request | | 2019 | | Pain Center at | ,PhD [address] [facility] | | | | | [facility] | [address] | | | | | [address] | [place], [place] | | | | | Mailcode: CH15 | [address] | | | | | [facility] | [phone] | | | | | and [place], | | | | | | Building | | | | | | Floor [facility] [place] | | | | | | [address] | | | | | | [phone] | | | +--------+--------+ + + + [...]
--- OUTSIDE RECORDS SUMMARY | ~2020-03-23 | XMS | Encounter Summary ---
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 Surgery check-in location: [facility] Day Stay - [place] for Health and Healing, 4th floor Surgery [...] it is after office hours, call the [facility] lay out machine operator at [phone] and ask them to page him or h er. documented in this encounter Progress Notes Catie Smart NP - 11/27/2018 2:05 PM PST PREOPERATIVE CONSULT NOTE Author: Catie Smart NP Referring Physician: Alex Sanchez MD Primary Care Provider: Justo Vazquez MD Reason for Consult: Preoperative evaluation and risk assessment Proposed Procedure/Date: implant SCS; 12/05/2018 Proposed Procedure Location: [facility] HISTORY OF PRESENT ILLNESS: Tracie [...] renal failure no electrolyte abnormalities no dialysis Urology/Drying Frame Operator: Interstitial cystitis LMP: irreg bleeding, ~11/14/2018, IUD [...] oral recon soln Take as directed by [facility] Reframe It [facility]- 2 gallon bowel prep polyethylene glycol 17 [...] Trial spinal cord stimulator leads 08/02/2012 [facility], Surgeon: Janak Riojas MD Cholecystectomy [...] patient is a lso currently scheduled at [facility] [place] and is meeting inclusion [...] to this patient's care. Catie Smart NP [facility] PBB PREOPERATIVE MEDICINE CLINIC AT [facility] 4TH FLOOR [address] [facility] [address] I advised the patient [...]
--- OUTSIDE RECORDS SUMMARY | ~2020-03-23 | XMS | Encounter Summary ---
Demographics + + + | Address | [address] | | | [place] [address] | + + + | Home Phone [...] Team Providers + +------+ + | Care Abstract Searcher Name | Role | Phone | [...] Pain Medicine | Diagnoses | Chasity, | Dot Net Developer Chh1 | | | | / Pain | Abdominal | MD Kenny | [address] | | | | Management | pain, | [address] | [address] | | | | | unspecified | [address] | Mailcode: | | | | | location | Rd | [facility] Center | | | | | Procedures | [place], [place] | for Health | | | | | CONSULT TO | [address] | and Healing, | | | | | PAIN | | Building | | | | | MANAGEMENT | | 1,15th Floor | | | | | | | [place], [place] | | | | | | | [address] | | | | | | | Phone: | | | | | | | [phone] | | | | | | | Fax: | | | | | | | [phone] | +--------+--------+ + + + + Reason [...] Order; Abdominal | | 2016 | | [place] [address] | | pain | | | | [address] | | | | | | Mailcode: [place] | | | | | | [facility] and | | | | | | [place], [facility] 2 | | | | | | [place], [place] | | | | | | [address] | | | | | | [phone] | | | +--------+ + + + [...]
--- OUTSIDE RECORDS SUMMARY | ~2020-03-23 | XMS | Encounter Summary ---
Demographics + + + | Address | [address] | | | [place] [address] [...] Team Providers + +------+ + | Care Creosoting Engineer Name | Role | Phone | [...] | | | | | Procedures | [place], [place] | | | | | | MR | [id number] | | | | | | ENTEROGRAPHY [...] | | | | | Procedures | [place], [place] | | | | | | MR | [id number] | | | | | | ENTEROGRAPHY [...] | 2017 | Encounter | Services at [facility] | [address] | | | | | [address] | [place], [place] | | | | | [address] [place] | [address] | | | | | [facility] | [phone] | | | | | [place], [place] | | | | | | [address] | | | | | | [phone] | | | +--------+ + + + [...]
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
--- OUTSIDE RECORDS SUMMARY | ~2020-03-23 | XMS | Encounter Summary ---
Demographics + + + | Address | [address] | | | [place] [address] | + + + | Home Phone [...] Team Providers + +------+ + | Care Asbestos Cement Sheet Supervisor Name | Role | Phone | [...] Pain Medicine | Diagnoses | Chasity, | Demand Planning Manager Chh1 | | | | / Pain | Abdominal | MD Kenny | [address] | | | | Management | pain, | [address] | [address] | | | | | unspecified | [address] | Mailcode: | | | | | location | Rd | [facility] Center | | | | | Procedures | [place], [place] | for Health | | | | | CONSULT TO | [address] | and Healing, | | | | | PAIN | | Building | | | | | MANAGEMENT | | 1,15th Floor | | | | | | | [place], [place] | | | | | | | [address] | | | | | | | Phone: | | | | | | | [phone] | | | | | | | Fax: | | | | | | | [phone] | +--------+--------+ + + + + Reason [...] Order; Abdominal | | 2016 | | [place] [address] | | pain | | | | [address] | | | | | | Mailcode: Laquey | | | | | | [facility] Health and | | | | | | Martina, [facility] 2 | | | | | | [place], [place] | | | | | | [address] | | | | | | [phone] | | | +--------+ + + + [...]
--- OUTSIDE RECORDS SUMMARY | ~2020-03-23 | XMS | Encounter Summary ---
Demographics + + + | Address | [address] | | | [place] [address] | + + + | Home Phone [...] Team Providers + +------+ + | Care Store Operations Manager Name | Role | Phone [...] Oliveira | | 2011 | IP | [address] | | House - Approved | | | | [place], | | | | | | [place] [address] | | | +--------+ + + + [...]
--- OUTSIDE RECORDS SUMMARY | ~2020-03-23 | XMS | Encounter Summary ---
Demographics + + + | Address | [address] | | | [place] [address] | + + + | Home Phone [...] Providers + +------+ + | Care Front Desk Assistant Name | Role | Phone | [...] | Diagnoses | Beulah | Edu Pt Scale Technician | | | | Therapy | CRPS | Janak Martinez MD | Chh1 [address] | | | | | (complex | [address] | | | | | regional | [address] | Mailcode: | | | | | pain | Mailstop | [facility] | | | | | syndrome), | [id number] | for Health | | | | | lower limb | [place], [place] | and Healing, | | | | | Gait | [address] | Building [address] | | | | | disturbance | Phone: | [place], [place] | | | | | Muscle pain | [phone] | [address] | | | | | Procedures | Fax: | Phone: | | | | | PHYSICAL | [phone] | [phone] | | | | | THERAPY | [...] regional pain | | | | [facility] | [place] [address] | syndrome), lower | | | | [address] | [phone] | limb (Primary Dx) | | | | Mailcode: CH3P | | | | | | [facility] | | | | | | and Healing, | | | | | | Building [address] | | | | | | Floor [place], [place] | | | | | | [address] | | | | | | [phone] | | | +--------+---------+ + + + [...] might be different f rom the original. [id number] BRODY FARAH Date of : 1990 Start of care: 02/14/2012 Date of onset: 02/14/2012 Referring/Attending Practitioner: Janak Riojas MD . Primary/Referral Diagnosis/ICD-9: 355.71B CRPS (complex regional pain syndrome), lower limb Insurance: Payor: [facility] Plan: BCBS OUT OF STATE Product Type: PP O Service period from: 02/14/2012 to: 08/12/2012 Number visits used/authorized: 12/26 [facility] PHYSICAL THERAPY PROGRESS NOTE SUBJECTIVE: [...] less stressful. Now she is working at [employer] 2-3 hours per week, and spends a [...] sometimes pain meds. Social History: lives in [place], 22 years old, not working [...] or concerns about therapy: she lives in [place]. She is r equesting family [...] any change in their status. [facility] Sanon [facility] Outpatient Rehabilitation Services Mailcode: Ch3p [address] [facility] Clinic, 1st Floor [facility] [address] documented in this encounter Plan of Treatment Not on filedocumented as of this encounter Procedures + +--------+ + + + | Procedure Name | Priori | Date/Time | Associated Diagnosis | Comments | | | ty | | | | + +--------+ + + + | GA THERAPEUTIC | Routin | 05/03/2012 | CRPS [...]
--- OUTSIDE RECORDS SUMMARY | ~2020-03-23 | XMS | Encounter Summary ---
Demographics + + + | Address | [address] | | | [place] [address] | + + + | Home Phone [...] Providers + +------+ + | Care Paper Wrapping Machine Operator Name | Role | Phone [...] + + | 01/11/ | Telephone | [facility] Comprehensive | Alex Sanchez, | Referral To | | 2018 | | Pain Center at | ,PhD [address] | Orthopedics (discuss | | | | [facility] | [address] | ortho appointment) | | | | [address] | [facility] [place] | | | | | Mailcode: CH15 | [address] | | | | | [facility] | [phone] | | | | | and Healing, | | | | | | | | | | | | [facility] [place] | | | | | | [address] | | | | | | [phone] | | | +--------+ + + + [...]
--- OUTSIDE RECORDS SUMMARY | ~2020-03-23 | XMS | Encounter Summary ---
Demographics + + + | Address | [address] | | | [place] [address] | + + + | Home Phone [...] Providers + +------+ + | Care Form Grader Operator Name | Role | Phone | [...] with nausea | [address] | [address] [place], | | | | | Complex | Rd | [place] | | | | | regional | [place], [place] | [address] | | | | | pain | [address] | Phone: | | | | | syndrome | Phone: | [phone] | | | | | type 1 of | [phone] | Fax: | | | | | left lower | Fax: | [phone] | | | | | extremity | [phone] | | | | | | Procedures [...] | | | unspecified | [facility] | [address] | | | | | location | Rd | [facility] | | | | | Procedures | [place], [place] | Rd [place], | | | | | CONSULT TO | [address] | [place] | | | | | PAIN | | [address] | | | | | MANAGEMENT | | Phone: | | | | | | | [phone] | | | | | | | Fax: | | | | | | | [phone] | +--------+--------+ + + + + Encounter [...] vomiting with | | | | [facility] | [address] | nausea (Primary Dx); | | | | [address] | [place], [place] | Complex regional | | | | Mailcode: CH15P | [address] | pain syndrome type 1 | | | | [place] for Health | [phone] | of left lower | | | | and Healing, | | extremity | | | | Building | | | | | | Floor [facility] [place] | | | | | | [address] | | | | | | [phone] | | | +--------+---------+ + + + [...] might be differe nt from the original. [facility] Return Visit Date: 04/20/2018 Chief Complaint Patient presents with Abdominal pain Back pain Pain in left leg History of Present Illness: Tracie Farah is a 27 year old female, whose last appoi ntment at the [facility] was 12/27/2017, for [...] not help for the abdominal pain). 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 Goes to [employer] with a light load. Has been working at [employer], can' t work on [employer]. Has roommates. Allergies Allergen Reactions Morphine Anaphylaxis [...] by physician. Concentration is 150mg/mL. Compounded by [facility] ) KETOROLAC IM Inject into the [...] to her by Christie Madrid MD in [place], [place]. As she chowdhury s since left the practice, Ms. Farah no longer has a prescriber for this medication. At [facility], we typically do not [...] unclear etiology. She presents to the ER [facility], and is greatly helped by [...] Follow up as needed Alex Sanchez MD,PhD [facility] 3 :41 PM Charline Choe MA - 04/19/2018 1:00 PM PDTCMA History: [...]
--- OUTSIDE RECORDS SUMMARY | ~2020-03-23 | XMS | Encounter Summary ---
Demographics + + + | Address | [address] | | | [place] [address] | + + + | Home Phone [...] Team Providers + +------+ + | Care Aviation Electrical Technician Name | Role | Phone | [...] [address] | | | | | [address] Mailcode: | [place], [place] | | | | | [address] | [address] | | | | | Health and Healing, | [phone] | | | | | | | | | | | Floor [facility] [place] | | | | | | [address] | | | | | | [phone] | | | +--------+ + + + [...] Note | + + | Service Account, iLike Res In Interface - 03/08/2018 9:42 AM [...]
--- OUTSIDE RECORDS SUMMARY | ~2020-03-23 | XMS | Encounter Summary ---
Demographics + + + | Address | [address] | | | [place] [address] | + + + | Home Phone [...] Providers + +------+ + | Care Tomato Grader Name | Role | Phone | [...] | | | [address] | [facility] [address] | | | | | [place], [place] | [place], [place] | | | | | [address] | [address] | | | | | | [phone] | | | | | | | [...] | + +--------+ + + + | TACO MAKER MISC PROCEDURE | Routin | 12/27/2017 | Complex regional | Results for this | | | e | 3:28 PM | pain syndrome type 1 | procedure are in the | | | | PST | of left lower | results section. | | | | | extremity | | + +--------+ + + + documented in this encounter Results [facility] MISC PROCEDURE (12/27/2017 3:28 PM PST) [...]
--- OUTSIDE RECORDS SUMMARY | ~2020-03-23 | XMS | Encounter Summary ---
Demographics + + + | Address | [address] | | | [place] [address] | + + + | Home Phone [...] Organization | [facility] [place] | | | and [place] [...] [place] | | | | | [address] | | + + + + + | Bryant Farah | ECON | Unknown | | + + + + + Care Team Providers + +------+ + | Care Java Sdet Name | Role | Phone | + +------+ + PCP | Unavailable | + +------+ + Encounter Details +--------+ + + + + | Date | Type | Department | Care Team | Description | +--------+ + + + + | 03/16/ | Hospital | [facility] | Conversion | Back pain | | 2013 | Encounter | CONVERSION [address] | Transaction, | | | | | [address] | Provider Unknown | | | | | [place], [place] | [phone] | | | | | [address] | | | | | | [phone] | | | +--------+ + + + [...]
--- OUTSIDE RECORDS SUMMARY | ~2020-03-23 | XMS | Encounter Summary ---
Demographics + + + | Address | [address] | | | [place] [address] | + + + | Home Phone [...] Providers + +------+ + | Care Hot Repairman Name | Role | Phone | + [...] | | 2016 | | Center at [facility] [address] | | severe stomach Pain) | | | | [address] | | | | | | Mailcode: [place] | | | | | | for Health and | | | | | | Healing, Building [address] | | | | | | [place], [place] | | | | | | [address] | | | | | | [phone] | | | +--------+ + + + [...]
--- OUTSIDE RECORDS SUMMARY | ~2020-03-23 | XMS | Encounter Summary ---
Demographics + + + | Address | [address] | | | [place] [address] | + + + | Home Phone [...] Providers + +------+ + | Care Facility Engineer Name | Role | Phone | [...] | | | | | | Mailcode: [place] | | | | | | [facility] Health and | | | | | | [address], [address] | | | | | | [place], [place] | | | | | | [address] | | | | | | [phone] | | | +--------+ + + + [...]
--- OUTSIDE RECORDS SUMMARY | ~2020-03-23 | XMS | Encounter Summary ---
Demographics + + + | Address | [address] | | | [place] [address] | + + + | Home Phone [...] Team Providers + +------+ + | Care Mobile Patrol Officer Name | Role | Phone [...] | | | [address] Mailcode: | [place], [place] | | | | | [address] | [address] | | | | | Health and Healing, | [phone] | | | | | | | | | | | Floor [facility] [place] | | | | | | [address] | | | | | | [phone] | | | +--------+ + + + [...] Note | + + | Service Account, Access Network Res In Interface - 03/08/2018 9:42 AM [...]
--- OUTSIDE RECORDS SUMMARY | ~2020-03-23 | XMS | Encounter Summary ---
Demographics + + + | Address | [address] | | | [place] [address] | + + + | Home Phone [...] Team Providers + +------+ + | Care Cdl Company Flatbed Driver Name | Role | Phone | [...] | | | [address] | [facility] [address] | | | | | [place], [place] | [place], [place] | | | | | [address] | [address] | | | | | | [phone] | | | | | | | [...] | + +--------+ + + + | PULP COOKER MISC PROCEDURE | Routin | 12/27/2017 | Complex regional | Results for this | | | e | 3:28 PM | pain syndrome type 1 | procedure are in the | | | | PST | of left lower | results section. | | | | | extremity | | + +--------+ + + + documented in this encounter Results [facility] MISC PROCEDURE (12/27/2017 3:28 PM PST) [...]
--- OUTSIDE RECORDS SUMMARY | ~2020-03-23 | XMS | Encounter Summary ---
Demographics + + + | Address | [address] | | | [place] [address] | + + + | Home Phone [...] Providers + +------+ + | Care Associate Account Executive Name | Role | Phone | + +------+ + | Justo Vazquez MD | PCP | | + +------+ + Encounter Details +--------+ + + + + | Date | Type | Department | Care Team | Description | +--------+ + + + + | 01/02/ | Telephone | [facility] | Ilene Bright, | | | 2019 | | Pain Center at | THEATRE INSTRUCTOR [address] | | | | | [facility] | [place], [place] | | | | | [address] | [address] | | | | | Mailcode: CH15P | [phone] | | | | | [facility] | | | | | | and Healing, | | | | | | | | | | | | Floor [place], [place] | | | | | | [address] | | | | | | [phone] | | | +--------+ + + + [...]
--- OUTSIDE RECORDS SUMMARY | ~2020-03-23 | XMS | Encounter Summary ---
Demographics + + + | Address | [address] | | | [place] [address] | + + + | Home Phone [...] Providers + +------+ + | Care Freight Router Name | Role | Phone | + [...] | Procedures | [place] | [facility], | | | | | CONSULT TO | [address] | [place] | | | | | PAIN | | [address] | | | | | MANAGEMENT | | Phone: | | | | | | | [phone] | | | | | | | Fax: | | | | | | | [phone] | +--------+--------+ + + + + Encounter Details +--------+---------+ + + + | Date | Type | Department | Care Team | Description | +--------+---------+ + + + | 04/23/ | Office | Pain Center at [facility] | Alex Sanchez, | Complex regional | | 2019 | Visit | [address] | ,PhD [address] [facility] | pain syndrome type 1 | | | | Mailcode: CH15P | [address] | of left lower | | | | Center for Health | [place], [place] | extremity (Primary | | | | and Healing, | [address] | Dx); Other chronic | | | | Building | [phone] | pain ; S/P insertion | | | | Floor [facility] [place] | | of spinal cord | | | | [address] | | stimulator | | | | [phone] | | | +--------+---------+ + + + [...] the lab on the 1st floor of [facility] to provide a urine sample for [...] Sanchez MD,PhD [facility]ronically signed by Alex Sanchez MD,PhD at 04/14 7:04 PM Tania jN RN - 04/23/2019 1:00 PM PDTCMA History: [...] Lam MD - 9 1:00 PM PDT [facility] Return Visit Date: 04/23/2019 Chief Complaint Patient presents with Pain in left leg from the knee downl Back pain where battery pack is located History of Present Illness: Tracie Farah is a 28 year old female, whose last appoi ntment at the [facility] [place] was December 22, 2018, for a clinic [...] symptoms. She notes that her primary care [facility] is unable to provide her with [...] - DRG Spinal cord stimulator trial with [facility] system (09/25/2018) with 30-40% im provement of typical pain with significant improvement in mobility and function - Left popliteal/sciatic nerve injection AND abdominal scar trigger point injection ( 018) - Spinal cord stimulator trial with [facility] system by Janak Riojas MD (08/02/2012) - Left L3 lumbar sympathetic block by Janak Riojas MD (03/01/2012) Opioid Risk Tool (ORT) 04/23/2019 MENTAL HEALTH ASSISTANT Brief Pain Inventory: (ten= worst possible [...] Hemroidectomy Trial spinal cord stimulator leads 08/02/2012 [facility], Surgeon: Janak Riojas MD Cholecystectomy Appendectomy Other [...] History Social History Narrative Single. Goes to [email or web address] with a light load. Has been working at [employer], can' t work on [employer]. Has roommates. Allergies Allergen Reactions Morphine [...] nausea Abdominal pain Abdominal scar neuroma [facility] CLINICAL PROTOCOL PATIENT (CLNPRO) - [...] and summary of old medical records (source: [employer]), as summarized in the body of the [...] We performed DRG SCS trial with the [facility] on 09/25/2018 which provided her with [...] ago. She has not spoken with the [facility] representatives about this. I encouraged her to [...] Key. Aleta Rebollar MD PAIN CENTER AT [facility] 15 FLOOR [address] [facility] Mail Code: Ch15p [place] [address] do cumented in this encounter [...] | + + + + + | [facility] | [address] | [place] [address] | | | SERVICES, CORE | GUILLERMO [...]
--- OUTSIDE RECORDS SUMMARY | ~2020-03-23 | XMS | Encounter Summary ---
Demographics + + + | Address | [address] | | | [place] [address] | + + + | Home Phone [...] Team Providers + +------+ + | Care Shank Cutter Name | Role | Phone | [...] | | 2015 | | Center at [facility] [address] | MD Melissa | | | | | [address] | | | | | | Mailcode: Center | | | | | | for Health and | | | | | | Healing, Building 2 | | | | | | [place], [place] | | | | | | [address] | | | | | | [phone] | | | +--------+ + + + [...]
--- OUTSIDE RECORDS SUMMARY | ~2020-03-23 | XMS | Encounter Summary ---
Demographics + + + | Address | [address] | | | [place] [address] | + + + | Home Phone [...] Team Providers + +------+ + | Care Site Medical Director Name | Role | Phone | [...] | | | | | Procedures | [place], [place] | | | | | | MR | [id number] | | | | | | ENTEROGRAPHY [...] pain, | | 2017 | Visit | [place] [facility] [address] | | unspecified location | | | | [address] | | (Primary Dx) | | | | Mailcode: [place] | | | | | | for Health and | | | | | | Healing, Building 2 | | | | | | [place], [place] | | | | | | [address] | | | | | | [phone] | | | +--------+---------+ + + + [...] heavy metal poisoning 2) MR enterography - [phone] to schedule 3) can increase miralax to 6 times per day Return to clinic in 3 months Please feel free to call our clinic with any questions. [phone] Kenny Gaspar MD Fellow, Division of Gastroenterology [...] n their attached note. Celia Lin MD Speech Pathologistdrill punch operator Division of Gastroenterology & Hepatology [facility] Kenny Dodge Md - 2016 3:15 PM PST Gastroenterology Clinic Follow-Up Note 01/11/2017 CC/ID: Tracie Farah is a 26 F PMHx depression, complex regional pain syndrome(CRPS ) here for follow-up of n/v, abdominal pain INTERVAL HISTORY: Previously seen by Dr. Carbajal 08/10/16 - 10/2015 - hospitalized at [facility] for nausea/vomiting/pain -> [facility] -> CT A/P [...] 0 pantoprazole 40 mg oral tablet,delayed release (/EC) Take 40 mg by mouth two times da evita. 0 peg-electrolyte 236-22.74-6.74 -5.86 gram oral recon soln Take as directed by [facility]- 2 gallon bowel prep 8000 mL 0 [...]
--- OUTSIDE RECORDS SUMMARY | ~2020-03-23 | XMS | Encounter Summary ---
Demographics + + + | Address | [address] | | | [place] [address] | + + + | Home Phone [...] Providers + +------+ + | Care Jail Keeper Name | Role | Phone | [...] | | | | | extremity | [address] | [address] | | | | | Procedures | Phone: | Phone: | | | | | REQUEST TO | [phone] | [phone] | | | | | SURGERY | Fax: | Fax: | | | | | WIRE PHOTO OPERATOR NEWS | [phone] | [phone] | +--------+---------+ + + + + Encounter Details +--------+---------+ + + + | Date | Type | Department | Care Team | Description | +--------+---------+ + + + | 09/28/ | Office | [facility] Comprehensive | Yun Frey, PLYCOR OPERATOR | Complex regional | | 2018 | Visit | Pain Center at | [address] | pain syndrome type 1 | | | | [facility] | [place], [place] | of left lower | | | | [address] | [address] | extremity (Primary | | | | Mailcode: CH15P | [phone] | Dx); Arthralgia of | | | | [place] for [facility] | | left lower leg | | | | and Healing, | | | | | | | | | | | | Floor [place], [place] | | | | | | [address] | | | | | | [phone] | | | +--------+---------+ + + + [...] the time to see us in the [facility]. It was [...] PM PST September 28, 2018 Tracie Farah [id number] [facility] Comprehensive Pain Center Return Visit Chief Complaint: [...] and a pain drawing which I reviewed. [facility] Questionnaire Follow-up Patient 10/10/2017 Please [...] turned up to 7%. After seeing th hardware supplies sales representative today and killian ing adjustments, [...] Trial spinal cord stimulator leads 08/02/2012 [facility], Surgeon: Janak Riojas MD Cholecystectomy Appendectomy Other [...] the vein (IV) every eight hour s. 4211-5328-74 COMPOUNDED MED RX CONTROLLED (SEE ADMIN INSTRUCT [...] by physician. Concentration is 150mg/mL. Compounded by [facility] ) KETOROLAC IM Inject into the [...] (IV) every twel ve hours as needed. 3532-2041-81 ONDANSETRON 4 MG DISINTEGRATING TABLET Dissolve 1 [...] been given programming opti ons by the [employer]'s device hardware supplies sales representative, Michele. At this time, there is no complication from the DRG trial. Recommendations/Plan: 1. Recommend to keep her appointment with Dr. Sanchez on 10/02/2018. 2. To contact the [employer]'s rep if she has any further question on programming. 09/28/2018: I, Dayana Ivan, am functioning as a medical esthetician for Yun Frey NP. I have reviewed and verified the above scribed note of my visit with this patient as record ed by Ms. Dayana Ivan. Jeanine Frey (Mr.) MSN, ACNP- Nurse Practitioner Acute Pain Service /[facility] [address] [place] [phone] documented in this enco unter Plan of [...]
--- OUTSIDE RECORDS SUMMARY | ~2020-03-23 | XMS | Encounter Summary ---
Demographics + + + | Address | [address] | | | [place] [address] | + + + | Home Phone [...] Providers + +------+ + | Care Car Varnisher Name | Role | Phone | + [...] | Orthopedics | Diagnoses | Sdrulla, | Shannon, | | | | | Complex | [place], | Ranjeet Odom MD | | | | | regional | ,PhD [address] | [address] | | | | | pain | [address] | [address] | | | | | syndrome | [place] | [place], [place] | | | | | type 1 of | Rd | [address] | | | | | left lower | [place], [place] | Phone: | | | | | extremity | [address] | [phone] | | | | | Procedures | Phone: | Fax: | | | | | CONSULT TO | [phone] | [phone] | | | | | ORTHOPEDICS | Fax: | | | | | | AND | [phone] | | | | | | REHABILITATI [...] | ankle results) | | | | [facility] | [facility] | | | | | [address] | [place], [place] | | | | | Mailcode: CH15P | [address] | | | | | [facility] | [phone] | | | | | and Healing, | | | | | | Building | | | | | | [place], [place] | | | | | | [address] | | | | | | [phone] | | | +--------+ + + + [...]
--- OUTSIDE RECORDS SUMMARY | ~2020-03-23 | XMS | Clinical Summary ---
Demographics + + + | Address | [address] | | | [place] [address] | + + + | Home Phone [...] | Author | [facility] | + + + | Organization | [facility] | + + + | Address | Unknown | + + + | Phone | Unavailable | + + + Support + + +---------+ + | Name | Relationship | Address | Phone | + + +---------+ + | Patricia Colin | ECON | Unknown | | + + +---------+ + Care Team Providers + +------+ + | Care Furniture Finisher Helper Name | Role | Phone | + +------+ + | Justo Vazquez MD | PCP | | + +------+ + Source Comments [facility] is fully live on both [facility] Ambulatory and [facility] InPatient.[facility] Allergies + + + + + [...] Noted Date | + + + | [facility] CLINICAL PROTOCOL PATIENT (PETER) - Implanted Spinal Cord | 12/14/2018 | | Stimulator | | + + + + + | Overview: Patient has an implanted [employer] spinal | | cord stimulator. Model#: [id number]. Contact [phone] for | | technical assistance.Contraindications:Sources of strong [...] | Right: | BARD | | | [id number] | | Port-10/05/2016Implanted: | | Chest | | | | 0 / | | 10/05/2016 by Obdulio Simpson, | | | | | | /VIKY | | (Quantity not on file) | | | | | | 204 | + +------+--------+ +--------+--------+--------+ + + | Description:Not Power | | Injectable, Progress record | | faxed from [facility] | | Hospital in [place], [place], | | [facility] RN | + + + +---+---+ +---+--------+--------+ | Slimtip DrgImplanted: Qty: 1 | | | [address] [facility]ICA | | 01/06/ | [id number] | | on 12/05/2018 by Daniel, | | | MEDICAL [place] | | 2020 | 0-50A | | Alex Alba MD,PhD at [facility] | | | | | | /[id number] | | INPATIENT REV LOC | | | | | | 371 / | + +---+---+ +---+--------+--------+ + + | Description:Level 4 | + + + +---+---+ +---+---+--------+ | Slimtip DrgImplanted: Qty: 1 | | | ST JESSICA | | | [id number] | | on 12/05/2018 by Daniel, | | | MEDICAL [place] | | | 0-50A | | Alex Alba MD,PhD at [facility] | | | | | | /[id number] | | INPATIENT REV LOC | | [...] / | | Alex Alba MD,PhD at [facility] | | | | | | [...] | | | | | | | [address] | | + +--------+ +--------+ + +--------+ | AIR SEALING TECHNICIAN MEDICAID | AIR SEALING TECHNICIAN | [id number] | 11/14/19 | | | [...] | 1990 | [phone] | [place] [address] | | | evita | | | [...]
--- OUTSIDE RECORDS SUMMARY | ~2020-03-23 | XMS | Encounter Summary ---
Demographics + + + | Address | [address] | | | [place] [address] | + + + | Home Phone [...] Team Providers + +------+ + | Care Hybrid Technologist Name | Role | Phone | [...] 2017 | | Pain Center at | [facility] [address] | | | | | [facility] | MEDIC[place], [place] | | | | | [address] | [address] | | | | | Mailcode: CH15P | [phone] | | | | | [facility] | | | | | | and Healing, | | | | | | | | | | | | Floor [place], [place] | | | | | | [address] | | | | | | [phone] | | | +--------+ + + + [...]
--- OUTSIDE RECORDS SUMMARY | ~2020-03-23 | XMS | Encounter Summary ---
Demographics + + + | Address | [address] | | | [place] [address] | + + + | Home Phone [...] Providers + +------+ + | Care Telegraph Mechanic Name | Role | Phone | [...] | | syndrome | [place] | [facility] | | | | | type 1 of | Rd | Rd [place], | | | | | left lower | [place], [place] | [place] | | | | | extremity | [address] | [address] | | | | | Procedures | Phone: | Phone: | | | | | REQUEST TO | [phone] | [phone] | | | | | SURGERY | Fax: | Fax: | | | | | BUSINESS SALES CONSULTANT | [phone] | [phone] | +--------+---------+ + + + + Encounter Details +--------+---------+ + + + | Date | Type | Department | Care Team | Description | +--------+---------+ + + + | 12/07/ | Office | [facility] Comprehensive | Eulogio | Complex regional | | 2019 | Visit | Pain Center at | MD Irene [address] | pain syndrome type 1 | | | | [facility] | [address] [facility], | of left lower | | | | [address] | [place] [address] | extremity (Primary | | | | Mailcode: CH15P | [phone] | Dx); S/P insertion | | | | [facility] | | of spinal cord | | | | and Healing, | | stimulator | | | | Building , | | | | | | Floor [place], [place] | | | | | | [address] | | | | | | [phone] | | | +--------+---------+ + + + [...] Lujan MD - 12/07/2018 9:10 AM PST [facility] Return Visit Date: 12/07/2018 Chief Complaint Patient presents with Back pain Pain in left leg History of Present Illness: Tracie Farah is a 28 year old female, whose last appoi ntment at the [facility] was December 05, 2018, for [...] her 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 TODDLER NANNY Brief Pain Inventory: (ten= worst possible pain [...] Hemroidectomy Trial spinal cord stimulator leads 08/02/2012 [facility], Surgeon: Janak Riojas [...] History Social History Narrative Single. Goes to [employer] with a light load. Has been working at [employer], can' t work on [employer]. Has roommates. Allergies Allergen Reactions Morphine Anaphylaxis [...] directed by [facility] Digestive [facility]- 2 gallon bowel prep POLYETHYLENE GLYCOL [...] and summary of old medical records (source: [employer]), as summarized in the body of the [...] present for the encounter. Irene Krishnan MD [facility] COMPREHENSIVE PAIN CENTER AT [facility] [address] [facility], 4th Floor Mail Code: [place] [address] documented in thi s encounter Plan of Treatment Not on filedocumented as of this encounter Visit Diagnoses + + | Diagnosis | + + | Complex regional pain syndrome type 1 of left lower extremity - Primary | + + | S/P insertion of spinal cord stimulator | + + documented in this encounter
--- OUTSIDE RECORDS SUMMARY | ~2020-03-23 | XMS | Encounter Summary ---
Demographics + + + | Address | [address] | | | [place] [address] | + + + | Home Phone [...] Providers + +------+ + | Care Director Social Name | Role | Phone | + [...] CRPS | Janak Martinez MD | [facility] [address] | | | | Management | (complex | [address] | | | | | regional | [address] | Mailcode: | | | | | pain | Mailstop | CH15P Center | | | | | syndrome), | [id number] | for Health | | | | | lower limb | [place], [place] | and Healing, | | | | | Gait | [address] | Building 1, | | | | | disturbance | Phone: | 15th Floor | | | | | Muscle pain | [phone] | [place], [place] | | | | | Procedures | Fax: | [address] | | | | | CONSULT TO | [phone] | Phone: | | | | | PAIN CENTER | | [phone] | | | | | | | Fax: | | | | | | | [phone] | +--------+--------+ + + + + Encounter Details +--------+---------+ + + + | Date | Type | Department | Care Team | Description | +--------+---------+ + + + | 03/20/ | Office | Pain Center at [facility] | Shelia Feldman, PhD | Unspecified | | 2011 | Visit | [address] | | adjustment reaction | | | | Mailcode: CH15P | | (Primary Dx) | | | | [facility] | | | | | | and [place], | | | | | | | | | | | | [place], [place] | | | | | | [address] | | | | | | [phone] | | | +--------+---------+ + + + [...] Feldman, PhD - 03/20/2012 3:27 PM PDT [facility] Pain Center Name: Tracie Farah MR#: [id number] Date of : 1990 Date: March 20, 2012 Attending Psychologist: SHELIA FELDAMN, PHD CPT: 29174 Duration: 60min Psych: 309.0 Pain: 355.71 Tracie arrived on time for today's appointment, casually dressed and neatly groomed. Affect was appropriate, mood normothymic. She drove herself today and used crutches. She stated t hat she was doing "better", mainly because she has returned to work at [employer]. She is wo rking about 2 hour shifts; her pain is flared during work but she feels good because she is engaging in life and also is earning money. She reported that she has been cutting down on her pain medication because she wants to improve cognition (currently [facility] 1[facility]2 [facility]). She notes that she [...] discretion, not currently planned. SHELIA FELDMAN, PHD Leno Sewer Licensed Clinical Psychologist [facility] Department of Anesthesiology & Perioperative Medicine [facility] [address] [place] [address] Historical Information: Introduction: Tracie Farah is a 21-year-old woman with >5 year hx of CRPS, R LE.S ocial & Psychiatric History: Tracie Farah lives in [place] in a shared apartment space. She has struggled wi th CRPS for at least 5 years; original injury to her foot was in 2001. In summer 2010 she h ad inpt pain tx at [facility] with limited nursing home benefit. Recent flare; she arrived using [...] She learned some pain management techniques at [facility], mainly DB and PMR, which she does [...] Travel is a barrier; she lives in [place] DSM-IV Diagnoses/Impressions: Argyle I: 1. 309.9 Unspecified Adjustment Reaction 2. 780.50 Sleep Disturbance Argyle II: Deferred. Argyle III: Patient Active Problem List Diagnoses CRPS (complex regional pain syndrome), lower limb Gait disturbance Muscle pain Adjustment reaction Argyle IV: CRPS pain, pain related debility;difficulty attending class, working; family stres s; stalker ex-bf Argyle V: Global Assessment of Functioning = 75 [...] me should questions arise. SHELIA FELDMAN, PHD Leno Sewer Licensed Clinical Psychologist [facility] Department of Anesthesiology & Perioperative Medicine [facility] [address] [place] [address] documented in this enc ounter Plan of Treatment Not on filedocumented as of this encounter Visit Diagnoses + + | Diagnosis | + + | Unspecified adjustment reaction - Primary | + + documented in this encounter
--- OUTSIDE RECORDS SUMMARY | ~2020-03-23 | XMS | Encounter Summary ---
Demographics + + + | Address | [address] | | | [place] [address] | + + + | Home Phone [...] Team Providers + +------+ + | Care Anodize Machine Operator Name | Role | Phone [...] | 2017 | on | Center at [facility] [address] | [address] | | | | | [address] | [place], [place] | | | | | Mailcode: Center | [address] | | | | | for Health and | [phone] | | | | | [facility] 2 | | | | | | [place], [place] | | | | | | [address] | | | | | | [phone] | | | +--------+ + + + [...]
--- OUTSIDE RECORDS SUMMARY | ~2020-03-23 | XMS | Encounter Summary ---
Demographics + + + | Address | [address] | | | [place] [address] | + + + | Home Phone [...] Providers + +------+ + | Care Program Development Specialist Name | Role | Phone [...] | Pain Center at | [address] | | | | | [facility] | St Mailstop [id number] | | | | | [address] | [place], [place] | | | | | Mailcode: CH15P | [address] | | | | | [facility] | [phone] | | | | | and Healing, | | | | | | [facility] | | | | | | [place], [place] | | | | | | [address] | | | | | | [phone] | | | +--------+ + + + [...]
--- OUTSIDE RECORDS SUMMARY | ~2020-03-23 | XMS | Encounter Summary ---
Demographics + + + | Address | [address] | | | [place] [address] | + + + | Home Phone [...] Team Providers + +------+ + | Care Textile Colorist Formulator Name | Role | Phone | + [...] | | Center at [facility] [address] Junior Torres MD | Treatment Planning | | | | [address] | | | | | | Mailcode: Center | | | | | | for Health and | | | | | | [facility] 2 | | | | | | [place], [place] | | | | | | [address] | | | | | | [phone] | | | +--------+ + + + [...]
--- OUTSIDE RECORDS SUMMARY | ~2020-03-23 | XMS | Encounter Summary ---
Demographics + + + | Address | [address] | | | [place] [address] | + + + | Home Phone [...] Team Providers + +------+ + | Care Linux Consultant Name | Role | Phone | [...] | | 2016 | | Center at [facility] [address] | MD Melissa | | | | | [address] | | | | | | Mailcode: Center | | | | | | for Health and | | | | | | Healing, Building 2 | | | | | | [place], [place] | | | | | | [address] | | | | | | [phone] | | | +--------+ + + + [...]
--- OUTSIDE RECORDS SUMMARY | ~2020-03-23 | XMS | Encounter Summary ---
Demographics + + + | Address | [address] | | | [place] [address] | + + + | Home Phone [...] Team Providers + +------+ + | Care Millwright Name | Role | Phone | + [...] + + | 10/21/ | Hospital | [place] [address] [address] | [place], | | | 2015 - | Encounter | [facility] | MD Tala [address] | | | | | [address] [place] [address] | [facility] | | | 10/25/ | | [place], [place] | [place], [place] | | | 2014 | | [address] | [address] | | | | | [phone] | [phone] | | | | | | | | | | | | Clifton Childers | | | | | | MD Nhan [address] [facility] | | | | | | [facility] | | | | | | [place], [place] | | | | | | [address] | | | | | | [phone] | | | | | | | [...] child. Followed by Dr. Katy berrios at [facility] in [place], [place]. Has been on a stable regimen for the past few years (intra nasal ketamine, lamictal, memantine, ibuprofen). The Acute Pain Service was consulted during this hospitalization and felt that it is unlikely that these medications were causing her a bdominal signs and symptoms and recommended continuing her regimen with no changes. -Continue home CRPS regimen, as above -Follow-up with Dr. eJsse CASTREJON #Anxiety/Depression: As above, discussed with patient [...] agreeable with our plans. Clifton Childers MD Program Checker Division of Hospital Medicine Teaching Attending I [...] child. Followed by Dr. Katy berrios at [facility] in [place], [place], has been on a stable regimen [...] and plan. Lolita Ma MD, MPH Pager #[phone] PGY-1, Anesthesiology [facility] Associated attestation - Clifton Childers [...] agreeable with our plans. Clifton Childers MD Program Checker Division of Hospital Medicine Teaching Attending I [...] child. Followed by Dr. Katy berrios at [facility] in [place], [place], has been on a stable regimen for [...] and plan. Lolita Ma MD, MPH Pager #[phone] PGY-1, Anesthesiology [facility] Associated attestation - Clifton Childers [...] history, primarily secondary to CPRS in [facility] ng of complicated ankle fracture age ~12 [...] agreeable with our plans. Clifton Childers MD Program Checker Division of Hospital Medicine Teaching Attending I [...] good coping mechanism Heme/Lymphatic: negative Endocrine: negative Waiter/Waitress Tourist Class: negative Past Medical History: History of chronic [...] for he r CRPS in the pastm [facility] pharmacy does not carry this so we are trying to arrange for her to take her home medication via pharmacy approval 5. APS will sign off but please call with questions/concerns Aba Dorman MD, PGY 3 Art Education Professor [place]-2 APS Pager: [phone] BILLING INFORMATION Deferred to attending physician. Ms. [...] up at this point. Please contact APS (#[phone]) if further assistance is needed. Ulices Lopez MD BILLING INFORMATION [facility] DEPARTMENT: [phone] Place of Service:- Inpatient Date of Service: 10/23/2015 CSN: [id number] Suggested Modifier: GC - Resident Involved Suggested CPT: 30402 - Follow up visit (includes PNB) - [...] today recd call from Dr. Madrid from [facility]. She has known pt for many yea rs and suggested ketamine and propofol gtt. Updated her on APS recommendations. She will hav e her office fax her clinic records to us. Pt was seen with Dr. Childers. Milton Moreau MD PGY-3, Internal Medicine Pager [phone] Pro Edwards RN - 10/22/2015 10:06 AM PSTActing as scribe for the UR Committee Physician named below. The primary medical team for this patient and the [facility] UR Committee have agreed after furth er study that an inpatient admission was not medically necessary. This hospital stay is con verted to an outpatient stay through use of Medicare Condition Code 44. The patient was not ified of this change in writing. The providers involved in this decision were: For patient s primary medical team: Melissa Childers MD For [facility] UR Committee: Kerry HARRIS RN CM ACM [...] | | | LABORATORY | | | [facility] [place] [facility] | | | SERVICES, | | [...] [facility] | [address] | [place] [address] | | | SERVICES, CORE | PARK [...] | + + + | STAT | INSU | | | LABORATORY | | | LILLIAN CROSS | + + + + + + + + | Performing | Address | City/State/Zipcode | Phone Number | | Organization | | | | + + + + + | [facility] | [address] | [place] [address] | | | SERVICESLILLIAN | [address] [...] | | | LABORATORY | | | [place] | | | SERVICES, | | [...] the MDRD equation recommended by the | [facility] | | National Kidney Disease Education Program. [...] [facility] | [address] | [place] [address] | | | SERVICES, CORE | PARK [...] | + + + + + | zuuka! | [address] | [place] [address] | | | SERVICES, CORE | GUILLERMO [...] [facility] | [address] | [place] [address] | | | SERVICES, CORE | PARK [...] | + + + + + | [facility] | [address] | [place] [address] | | | SERVICES, CORE | PARK [...] + | [facility] | [address] [facility] | [place] [address] | | | SERVICES, CORE | GUILLERMO [...] | | | LABORATORY | | | [facility] | | | SERVICES, | | [...] [facility] | [address] | [place] [address] | | | SERVICES, CORE | PARK [...]
--- OUTSIDE RECORDS SUMMARY | ~2020-03-23 | XMS | Encounter Summary ---
Demographics + + + | Address | [address] | | | [place] [address] | + + + | Home Phone [...] Team Providers + +------+ + | Care Hatchery Man Name | Role | Phone | [...] | | | | | syndrome | [facility] | [facility] | | | | | type 1 of | Rd | Rd [place], | | | | | left lower | [facility] [place] | [place] | | | | | extremity | [address] | [address] | | | | | Muscle pain | Phone: | Phone: | | | | | Procedures | [phone] | [phone] | | | | | REQUEST TO | Fax: | Fax: | | | | | SURGERY | [phone] | [phone] | | | | | BLENDER OPERATOR | | | +--------+---------+ + + + [...] | syndrome | [address] | [address] | | | | | type 1 of | Rd | Rd [place], | | | | | left lower | [place], [place] | [place] | | | | | extremity | [address] | [address] | | | | | Muscle pain | Phone: | Phone: | | | | | Procedures | [phone] | [phone] | | | | | REQUEST TO | Fax: | Fax: | | | | | SURGERY | [phone] | [phone] | | | | | BLENDER OPERATOR | | | | | | | MI INJ,ANES | | | | | | | AGENT,SCIATI | | | | | | | C | | | | | | | NERVE,SINGLE | | | | | | | MI INJECT | | | | | | | NERV | | | | | | | BLCK,OTHR | | | | | | | PERIPH NERV | | | | | | | MI SONO | | | | | | | GUIDE FOR | | | | | | | NEEDLE | | | | | | | PLACEMENT | | | | | | | MI MOD | | | | | | | SEDATION | | | | | | | >=5YRS SAME | | | | | | | MD/QUAL | | | | | | | PROV; INIT | | | | | | | 15 MIN MI | | | | | | | [...] | | | | | Procedures | [facility] [place] | [facility], | | | | | CONSULT TO | [address] | [place] | | | | | PAIN | | [address] | | | | | MANAGEMENT | | Phone: | | | | | | | [phone] | | | | | | | Fax: | | | | | | | [phone] | +--------+--------+ + + + + Encounter Details +--------+---------+ + + + | Date | Type | Department | Care Team | Description | +--------+---------+ + + + | 12/14/ | Office | [facility] | Alex Sanhcez, | Complex regional | | 2018 | Visit | Pain Center at | ,PhD [address] | pain syndrome type 1 | | | [facility] | [facility] [address] | of left lower | | | | [address] | [place], [place] | extremity (Primary | | | | Mailcode: CH15P | [address] | Dx); Muscle pain; | | | | [facility] for [facility] | [phone] | Pain of upper | | | | and Healing, | | abdomen | | | | | | | | | | Floor [place], [place] | | | | | | [address] | | | | | | [phone] | | | +--------+---------+ + + + [...] make sure this is scheduled with the Guest Services. PRE-PROCEDURE INSTRUCTIONS 1. Please bring a auto haulaway driver with you as we may give [...] phone number for questions or concerns is [phone]. documented in this encounter Progress Notes Charline [...] M D,PhD - 12/14/2017 10:25 AM PST [facility] Return Visit Date: 12/14/2017 Chief Complaint Patient presents with Back pain Low back pain Abdominal pain Pain in right leg Pain in left leg History of Present Illness: Tracie Farah is a 27 year old female, whose last appoi ntment at the [facility] was October 11, 2017, for [...] review treatment plan. * Follow up with [facility] as needed. Today, she complains [...] was treated by Christie Madrid MD in [place], [place] for three years before she abruptly ended her practice due to illness. This left her without a doctor to help her manage her chronic pain. In addition to her CRPS symptoms (diagnosed 2010), she has some sto mach issues that she has been working with Ilene Childs DNP, FIBERGLASS BOAT MAKER-C. She has a scar on her stomach [...] a lot of great improvements while in [place], [place]. Weaning her off of the narcotic [...] her medical history that she spent in [place], [place] where she part ook in a [...] Spinal cord stimulator trial - Nerve blocks CUSTOMER EXPERIENCE ANALYST Brief Pain Inventory: (ten= worst possible pain [...] Trial spinal cord stimulator leads 08/02/2012 [facility], Surgeon: Janak Riojas MD Cholecystectomy Appendectomy [...] History Social History Narrative Single. Goes to [employer] with a light load. Has been working at [employer], can' t work on [employer]. Has roommates. Allergies Allergen Reactions Morphine Anaphylaxis [...] by physician. Concentration is 150mg/mL. Compounded by [facility] ) LAMOTRIGINE 200 MG TABLET Take [...] GRAM-5.86 GRAM SOLUTION Take as directed by [facility] Digestive [facility]- 2 gallon bowel prep POLYETHYLENE [...] and summary of old medical records (source: [employer]), as summarized in the body of the [...] to her by Christie Madrid MD in [place], [place]. As she has since left the [...] I jacqueline poon spoken with our medical front desk coordinator, Evelia Gonzalez MD who agrees that as [...] peripheral nerve stimulation. As she lives in [place], [place] with her family (3.5 hours away), [...] by Sonia Key. Alex Sanchez MD PhD Wire Wrapper Machine Operator Anesthesiology and Pain Management [facility] Post visit: I reviewed the UDS, [...] + + + + | [facility] | [address] | [place] [address] | | | SERVICES, CORE | GUILLERMO [...]
--- OUTSIDE RECORDS SUMMARY | ~2020-03-23 | XMS | Encounter Summary ---
Demographics + + + | Address | [address] | | | [place] [address] | + + + | Home Phone [...] Team Providers + +------+ + | Care Orthopedics Nurse Name | Role | Phone | + +------+ + | Justo Vazquez MD | PCP | | + +------+ + Encounter Details +--------+ + + + + | Date | Type | Department | Care Team | Description | +--------+ + + + + | 12/12/ | Telephone | [facility] | Alex Sanchez, | | | 2019 | | Pain Center at | ,PhD [address] | | | | | [facility] | [facility] [address] | | | | | [address] | [place], [place] | | | | | Mailcode: CH15P | [address] | | | | | [place] for [facility] | [phone] | | | | | and Healing, | | | | | | | | | | | | Floor [place], [place] | | | | | | [address] | | | | | | [phone] | | | +--------+ + + + [...]
--- OUTSIDE RECORDS SUMMARY | ~2020-03-23 | XMS | Encounter Summary ---
Demographics + + + | Address | [address] | | | [place] [address] | + + + | Home Phone [...] Providers + +------+ + | Care Pharmacy Delivery Driver Name | Role | Phone | [...] + | 12/05/ | Hospital | [facility] | Alex Sanchez, | | | 2019 | Encounter | [facility] | ,PhD [address] [facility] | | | | | Courtney Mailcode: [facility] | [address] | | | | | [facility] | [place], [place] | | | | | Health and [facility], | [address] | | | | | [place] [address] | [phone] | | | | | [place], [place] | | | | | | [address] | | | | | | [phone] | | | +--------+ + + + [...] s/p successful DRG trial lead system with [employer] on 09/25/2018. No changes in H&P, [...] OPERATIVE NOTE Date: December 05, 2018 Location: [facility] [place] | | | Tracie Farah [id number] :1990, presents to clinic | | | for: Dorsal root ganglion stimulator implant PROCEDURE: Dorsal | | | root ganglion stimulator implant PRE-OPERATIVE DIAGNOSIS: Complex | | | regional Pain syndrome type 1 of left lower extremity | | | POST-OPERATIVE DIAGNOSIS: Complex regional Pain syndrome type 1 of | | | left lower extremity ATTENDING PHYSICIAN: Alex Sanchez | | | MIDDLE SCHOOL MUSIC TEACHER: Arben Valerio MD ANESTHESIA: sedation by IVIS Cole | | | Carmen, supervised by horse exerciser Ilir Valdes. | | | FINDINGS: Appropriate [...] sedation. Ms. Farah was escorted to the [facility] | | | [place], where she [...] to the | | | [employer] sales representative marine supplies. A test stimulation was performed and once [...] recovery. Images were saved, and sent to my[employer]gr. | | | Alex Sanchez (attending) was present for the entire procedure. | | | Arben Valerio MD I was present for the entire procedure | | | (spinal cord stimulator implantation with DRG leads at left L4 and | | | L5) and all bocanegra elements of this visit. I reviewed the | | | documentation of the other CLEANER providers and concur with Dr. | | | Iman's findings. I edited his note. Alex Sanchez, | | | ,PhD Security Delivery Specialist Anesthesiology and Pain Management | | | [facility] | | + [...] + + | JOSE ANTONIO MIN | [address] [facility] | [place] [address] | | | OF CARE TESTS | [...]
--- OUTSIDE RECORDS SUMMARY | ~2020-03-23 | XMS | Encounter Summary ---
Demographics + + + | Address | [address] | | | [place] [address] | + + + | Home Phone [...] Providers + +------+ + | Care Human Projectile Name | Role | Phone | + [...] Pain Center at | [address] [facility] | evaluation (No | | | | [facility] | [facility] [id number] | evidence of drug | | | | [address] | [place], [place] | abuse) | | | | Mailcode: [facility] | [address] | | | | | [facility] | [phone] | | | | | and Healing, | | | | | | Building | | | | | | Floor [place], [place] | | | | | | [address] | | | | | | [phone] | | | +--------+ + + + [...]
--- OUTSIDE RECORDS SUMMARY | ~2020-03-23 | XMS | Encounter Summary ---
Demographics + + + | Address | [address] | | | [place] [address] | + + + | Home Phone [...] Team Providers + +------+ + | Care Technology Project Manager Name | Role | Phone [...] + + | 12/26/ | Refill | [facility] Comprehensive | Alex Sanchez, | Refill Request | | 2019 | | Pain Center at | ,PhD [address] [facility] | | | | | [facility] | [address] | | | | | [address] | [place], [place] | | | | | Mailcode: CH15 | [address] | | | | | [facility] | [phone] | | | | | and [address], | | | | | | Building | | | | | | Floor [facility] [place] | | | | | | [address] | | | | | | [phone] | | | +--------+--------+ + + + [...]
--- OUTSIDE RECORDS SUMMARY | ~2020-03-23 | XMS | Encounter Summary ---
Demographics + + + | Address | [address] | | | [place] [address] | + + + | Home Phone [...] Team Providers + +------+ + | Care Watch Repairer Apprentice Name | Role | Phone | [...] enterography | | 2017 | Encounter | [facility] [address] | | results | | | | [address] | | | | | | Mailcode: [place] | | | | | | [facility] and | | | | | | Healing, Building [address] | | | | | | [place], [place] | | | | | | [address] | | | | | | [phone] | | | +--------+ + + + [...]
--- OUTSIDE RECORDS SUMMARY | ~2020-03-23 | XMS | Encounter Summary ---
Demographics + + + | Address | [address] | | | [place] [address] | + + + | Home Phone [...] Team Providers + +------+ + | Care Archives Specialist Name | Role | Phone | [...] 2017 | | Pain Center at | WELT DRAWER [address] | | | | | [facility] | [place], [place] | | | | | [address] | [address] | | | | | Mailcode: CH15P | [phone] | | | | | [facility] | | | | | | joana [address], | | | | | | Building | | | | | | [place], [place] | | | | | | [address] | | | | | | [phone] | | | +--------+ + + + [...]
--- OUTSIDE RECORDS SUMMARY | ~2020-03-23 | XMS | Encounter Summary ---
Demographics + + + | Address | [address] | | | [place] [address] | + + + | Home Phone [...] Team Providers + +------+ + | Care Assayer Name | Role | Phone | + [...] | CRPS | Janak Martinez MD | [facility] [address] | | | | | (complex | [address] | Pavilion | | | | | regional | [address] | [address] | | | | | pain | Mailstop | [address], | | | | | syndrome), | [address] | Basement | | | | | lower limb | [place], [place] | [place], [place] | | | | | Procedures | [address] | [address] | | | | | [place] BONE &/[place] | Phone: | Phone: | | | | | JOINT | [phone] | [phone] | | | | | IMAGING 3 | Fax: | Fax: | | | | | PHASE | [phone] | [phone] | +--------+--------+ + + + + Encounter Details +--------+ + + + + | Date | Type | Department | Care Team | Description | +--------+ + + + + | 02/13/ | Hospital | Nuclear Medicine | | | | 2011 | Encounter | at [facility] [address] | | | | | | [address] | | | | | | [address], | | | | | | [place], | | | | | | [place] [address] | | | | | | [phone] | | | +--------+ + + + [...]
--- OUTSIDE RECORDS SUMMARY | ~2020-03-23 | XMS | Encounter Summary ---
Demographics + + + | Address | [address] | | | [place] [address] | + + + | Home Phone [...] Team Providers + +------+ + | Care Turn Laster Name | Role | Phone | + +------+ + | Justo Vazquez MD | PCP | | + +------+ + Encounter Details +--------+ + + + + | Date | Type | Department | Care Team | Description | +--------+ + + + + | 06/12/ | Hospital | Radiology/Imaging | Alex Sanchez, | | | 2018 | Encounter | [facility] [address] | ,PhD [address] [facility] | | | | | [address] Mailcode: | [address] | | | | | [address] for | [place], [place] | | | | | Health and Healing, | [address] | | | | | [place] [address] [facility] | [phone] | | | | | [place], [place] | | | | | | [address] | | | | | | [phone] | | | +--------+ + + + [...]
--- OUTSIDE RECORDS SUMMARY | ~2020-03-23 | XMS | Encounter Summary ---
Demographics + + + | Address | [address] | | | [place] [address] | + + + | Home Phone [...] Providers + +------+ + | Care Lead Business Systems Analyst Name | Role | Phone [...] | | Pain Center at | ,PhD [address] [facility] | | | | | [facility] | [address] | | | | | [address] | [place], [place] | | | | | Mailcode: CH15P | [address] | | | | | [facility] | [phone] | | | | | and [address], | | | | | | Building | | | | | | Floor [facility] [place] | | | | | | [address] | | | | | | [phone] | | | +--------+--------+ + + + [...]
--- OUTSIDE RECORDS SUMMARY | ~2020-03-23 | XMS | Encounter Summary ---
Demographics + + + | Address | [address] | | | [place] [address] | + + + | Home Phone [...] Providers + +------+ + | Care District Wire Chief Name | Role | Phone | [...] Medication Question | | 2016 | | [place] [address] [address] | | | | | | [address] | | | | | | Mailcode: [place] | | | | | | [facility] and | | | | | | [place], [facility] [address] | | | | | | [place], [place] | | | | | | [address] | | | | | | [phone] | | | +--------+ + + + [...]
--- OUTSIDE RECORDS SUMMARY | ~2020-03-23 | XMS | Encounter Summary ---
Demographics + + + | Address | [address] | | | [place] [address] | + + + | Home Phone [...] Providers + +------+ + | Care Disability Services Coordinator Name | Role | Phone | + +------+ + | Allegra Gandhi | PCP | | + +------+ + Encounter Details +--------+ + + + + | Date | Type | Department | Care Team | Description | +--------+ + + + + | 02/13/ | Outside | UNKNOWN DEPARTMENT | Other, Faculty | | | 2011 | Records | [address] [facility] | [phone] | | | | | [address] | | | | | | [place], [place] | | | | | | [address] | | | +--------+ + + + [...]
--- OUTSIDE RECORDS SUMMARY | ~2020-03-23 | XMS | Encounter Summary ---
Demographics + + + | Address | [address] | | | [place] [address] | + + + | Home Phone [...] Team Providers + +------+ + | Care Photo Graphics Librarian Name | Role | Phone | [...] Alex Alba, | [facility] [address] | | | | | regional | ,PhD [address] | Pavilion | | | | | pain | [address] | [address] | | | | | syndrome | [address] | [address], | | | | | type 1 of | Rd | Basement | | | | | left lower | [place], [place] | [place], [place] | | | | | extremity | [address] | [address] | | | | | Muscle pain | Phone: | Phone: | | | | | Procedures | [phone] | [phone] | | | | | NM BONE | Fax: | Fax: | | | | | &/OR JOINT | [phone] | [phone] | | | | | IMAGING | [...] | | | | | | [place] BONE | | | | | | | IMAGING, | | | | | | | LIMITED AREA | | | | | | | [place] BONE | | | | | | [...] 2018 | Encounter | at [facility] [address] | ,PhD [address] [facility] | | | | | [address] | [address] | | | | | [address], | [place], [place] | | | | | [facility], | [address] | | | | | [place] [address] | [phone] | | | | | [phone] | | | +--------+ + + + [...]
--- OUTSIDE RECORDS SUMMARY | ~2020-03-23 | XMS | Encounter Summary ---
Demographics + + + | Address | [address] | | | [place] [address] | + + + | Home Phone [...] Team Providers + +------+ + | Care Torch Heater Name | Role | Phone | + [...] | | Complex | Alex Alba, | [facility] [address] | | | | | regional | ,PhD [address] | Pavilion | | | | | pain | [address] | [address] | | | | | syndrome | [address] | [address], | | | | | type 1 of | Rd | Basement | | | | | left lower | [place], [place] | [place], [place] | | | | | extremity | [address] | [address] | | | | | Muscle pain | Phone: | Phone: | | | | | Procedures | [phone] | [phone] | | | | | NM BONE | Fax: | Fax: | | | | | &/OR JOINT | [phone] | [phone] | | | | | IMAGING | [...] | | | | | | [place] BONE | | | | | | | IMAGING, | | | | | | | LIMITED AREA | | | | | | | [place] BONE | | | | | | [...] 2018 | Encounter | at [facility] [address] | ,PhD [address] [facility] | | | | | [address] | [address] | | | | | [address], | [place], [place] | | | | | [facility], | [address] | | | | | [place] [address] | [phone] | | | | | [phone] | | | +--------+ + + + [...]
--- OUTSIDE RECORDS SUMMARY | ~2020-03-23 | XMS | Encounter Summary ---
Demographics + + + | Address | [address] | | | [place] [address] | + + + | Home Phone [...] Providers + +------+ + | Care Lead Tinner Name | Role | Phone | + [...] Medical Records | | 2017 | | [place] at [facility] [address] | MD Melissa | Review | | | | [address] | | | | | | Mailcode: [place] | | | | | | [facility] and | | | | | | [facility] 2 | | | | | | [place], [place] | | | | | | [address] | | | | | | [phone] | | | +--------+ + + + [...]
--- OUTSIDE RECORDS SUMMARY | ~2020-03-23 | XMS | Encounter Summary ---
Demographics + + + | Address | [address] | | | [place] [address] | + + + | Home Phone [...] Team Providers + +------+ + | Care Live Hanger Name | Role | Phone | + +------+ + | Justo Vazquez MD | PCP | | + +------+ + Encounter Details +--------+ + + + + | Date | Type | Department | Care Team | Description | +--------+ + + + + | 04/03/ | Telephone | [facility] | Alex Sanchez, | | | 2019 | | Pain Center at | ,PhD [address] | | | | | [facility] | [facility] [address] | | | | | [address] | [facility] [place] | | | | | Mailcode: CH15P | [address] | | | | | [place] for [facility] | [phone] | | | | | and Healing, | | | | | | | | | | | | Floor [place], [place] | | | | | | [address] | | | | | | [phone] | | | +--------+ + + + [...]
--- OUTSIDE RECORDS SUMMARY | ~2020-03-23 | XMS | Encounter Summary ---
Demographics + + + | Address | [address] | | | [place] [address] | + + + | Home Phone [...] Providers + +------+ + | Care Controls Technician Name | Role | Phone | [...] + + | 08/07/ | Refill | [facility] | Alex Sanchez, | Refill Request | | 2018 | | Pain Center at | ,PhD [address] | | | | | [facility] | [address] | | | | | [address] | [place], [place] | | | | | Mailcode: CH15P | [address] | | | | | [facility] | [phone] | | | | | and Martina, | | | | | | Building | | | | | | Floor [place], [place] | | | | | | [address] | | | | | | [phone] | | | +--------+--------+ + + + [...]
--- OUTSIDE RECORDS SUMMARY | ~2020-03-23 | XMS | Encounter Summary ---
Demographics + + + | Address | [address] | | | [place] [address] | + + + | Home Phone [...] Providers + +------+ + | Care Manager Community Name | Role | Phone | + [...] | CRPS | Dale Martinez MD | [facility] [address] | | | | | (complex | [address] | Pavilion | | | | | regional | [address] | [address] | | | | | pain | Mailstop | [address]osta Vaneg[address], | | | | | syndrome), | [id number] | Basement | | | | | lower limb | [place], [place] | [place], [place] | | | | | Procedures | [address] | [address] | | | | | [place] BONE &/[place] | Phone: | Phone: | | | | | JOINT | [phone] | [phone] | | | | | IMAGING 3 | Fax: | Fax: | | | | | PHASE | [phone] | [phone] | +--------+--------+ + + + + Consult [...] | | | regional | [place] | [address] | | | | | pain | FAMILY | Mailstop | | | | | syndrome), | MEDICINE P | [id number] | | | | | lower limb | [address] | [place], [place] | | | | | Gait | [place], | [address] | | | | | disturbance | [place] [address] | Phone: | | | | | Muscle pain | Phone: | [phone] | | | | | Procedures | [phone] | Fax: | | | | | REQUEST TO | Fax: | [phone] | | | | | SURGERY | [phone] | | | | | | DOT COMPLIANCE COORDINATOR | | | +--------+--------+ + + + + Consultation (Routine) +--------+--------+ + + + + | Status | Reason | Specialty | Diagnoses / | Referred By | Referred To | | | | | Procedures | Contact | Contact | +--------+--------+ + + + + | Closed | | Psychology / | Diagnoses | Beulah, | Cleaning Staff Supervisor Psych | | | | Pain | CRPS | Dale Martinez MD | [facility] [address] | | | | Management | (complex | [address] | | | | | regional | [address] | Mailcode: | | | | | pain | Mailstop | CH15P Center | | | | | syndrome), | [phone] | for Health | | | | | lower limb | [place], [place] | and Healing, | | | | | Gait | [address] | Building 1, | | | | | disturbance | Phone: | 15th Floor | | | | | Muscle pain | [phone] | [place], [place] | | | | | Procedures | Fax: | [address] | | | | | CONSULT TO | [phone] | Phone: | | | | | PAIN CENTER | | [phone] | | | | | | | Fax: | | | | | | | [phone] | +--------+--------+ + + + + Physical Therapy (Routine) +--------+--------+ + + + + | Status | Reason | Specialty | Diagnoses / | Referred By | Referred To | | | | | Procedures | Contact | Contact | +--------+--------+ + + + + | Closed | | Physical | Diagnoses | Beulah, | Edu Pt Cleaning Staff Supervisor | | | | Therapy | CRPS | Dale Martinez MD | [facility] [address] | | | | | (complex | [address] | | | | | regional | [address] | Mailcode: | | | | | pain | Mailstop | CH3P Center | | | | | syndrome), | [phone] | for Health | | | | | lower limb | [place], [place] | and Healing, | | | | | Gait | [address] | Building 1 | | | | | disturbance | Phone: | [place], [place] | | | | | Muscle pain | [phone] | [address] | | | | | Procedures | Fax: | Phone: | | | | | PHYSICAL | [phone] | [phone] | | | | | THERAPY | [...] | | | 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 | FAMILY | Mailstop | | | | | of lower | MEDICINE P | [id number] | | | | | limb | [address] | [place], [place] | | | | | | [place], | [address] | | | | | | [place] [address] | Phone: | | | | | | Phone: | [phone] | | | | | | [phone] | Fax: | | | | | | Fax: | [phone] | | | | | | [phone] | | +--------+--------+ + + + + Encounter Details +--------+---------+ + + + | Date | Type | Department | Care Team | Description | +--------+---------+ + + + | 02/13/ | Office | [facility] | Dale Cantu, | CRPS (complex | | 2011 | Visit | Pain Center at | MD [address] | regional pain | | | | [facility] | [address] 6[address] | syndrome), lower | | | | [address] | [place], [place] | limb; Gait | | | | Mailcode: CH15P | [address] | disturbance; Muscle | | | | [facility] | [phone] | pain; Adjustment | | | | and Healing, | | reaction | | | | Building | | | | | | Floor [place], [place] | | | | | | [address] | | | | | | [phone] | | | +--------+---------+ + + + [...] Diagnostic evaluation: Records from CRPS program at [facility]. Suggest three phase bone s [...] psychologists here at the [facility]. 2.2 Physical therapy [...] procedure to assess the effects in detail. [facility] Pre-Procedure Instructions: The procedure you discussed with your doctor is called: LUMBAR SYMPATHETIC BLOCK. Please m sintia sure this is scheduled with the Haul Driver. Please bring a star route mail driver with you. We may give you medications that make you drowsy or otherw ise unsafe to drive. If you do not have a star route mail driver, we will not be able to [...] PLEASE CONTACT THE COMPREHENSIVE PAIN CENTER AT [phone]) FOR QUESTIONS OR IF YOU NEED TO CANCEL YOUR APPOINTMENT. [facility] Pain Center documented in this [...] pain management consultation by BJORN Mi [place] [facility] [address] [place] [address] Reason for visit Chief Complaint Patient presents with Pain in left leg Ankle pain left History of Present Illness: Tracie Farah is a 21 year old female with pain locate d in left lower extremity. She has been diagnosed with CRPS. She is referred to [facility] for consultation regarding [...] by several orthopedic surgeons, Dr. Charles in [place], physical therapy, Occupational Therapy. Diagnostic and radiologic [...] no pain relief. Admitted to the inpatient [facility] program for 1 month in the [...] entin, pregabalin, topiramate, tramadol, multiple opioids. Current [place] about 6-8/day. St arting duloxetine, at 30 mg/day. She feels that the most effective medication treatments ar e or have been opioids. As a result of her pain, Ms. Farah notes multiple changes in her life, including: "I don 't have a life, can't work, can't go to school." Poor mood, sleep, activity. Using crutche s recently because of pain flare. 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 Goes to [employer] with a light load. Has been working at [employer], can' t work on [employer]. Has roommates. Current Medication List 02/14/12 9:50 [...] you expect from your visits to the [facility] ? Other (describe): [...] ricks, the pediatric inpatient pain program at [facility], and two attempted lumbar sympathetic blocks. [...] CRPS patients (Loretta A, et al. Katrina Claims Technician Med. 2010;152: 152-158). Other treatment options for the future: Spinal cord stimulation (SCS) has good evidence f or providing termite inspector relief in CRPS (Complex Regional Pain [...] Diagnostic evaluation: Records from pain program at [facility] Kenneth. Suggest three ph ase bone scan-- [...] psychologists here at the [facility]. ORDER PLACED 2.2 Physical [...] her PCP, BJORN Villanueva. DALE CANTU MD Nuclear Supervising Operator, [facility] Flame Annealing Machine Operator, Pain Medicine Professor, Anesthesiology & [...]
--- OUTSIDE RECORDS SUMMARY | ~2020-03-23 | XMS | Encounter Summary ---
Demographics + + + | Address | [address] | | | [place] [address] | + + + | Home Phone [...] Providers + +------+ + | Care Claims Vice President Name | Role | Phone | + +------+ + | Allegra Chaudhary | PCP | | + +------+ + Encounter Details +--------+ + + + + | Date | Type | Department | Care Team | Description | +--------+ + + + + | 10/21/ | Telephone | [facility] | Antony Beltre, | | | 2014 | | [place] [facility] [address] | [address] | | | | | [address] | [place] [address] | | | | | Mailcode: [place] | [phone] | | | | | for Health and | | | | | | [address], Building [address] | | | | | | [place], [place] | | | | | | [address] | | | | | | [phone] | | | +--------+ + + + [...]
--- OUTSIDE RECORDS SUMMARY | ~2020-03-23 | XMS | Encounter Summary ---
Demographics + + + | Address | [address] | | | [place] [address] | + + + | Home Phone [...] Team Providers + +------+ + | Care Turbogenerator Operator Name | Role | Phone | + +------+ + | Justo Vazquez MD | PCP | | + +------+ + Encounter Details +--------+ + + + + | Date | Type | Department | Care Team | Description | +--------+ + + + + | 12/27/ | Ancillary | [facility] [place] [facility] | Alex Sanchez, | | | 2018 | Orders | Pain Center at | ,PhD [address] | | | | | [facility] | [address] | | | | | [address] | [facility] [place] | | | | | Mailcode: CH15P | [address] | | | | | [place] for [facility] | [phone] | | | | | and Healing, | | | | | | | | | | | | Floor [facility] [place] | | | | | | [address] | | | | | | [phone] | | | +--------+ + + + [...]
--- OUTSIDE RECORDS SUMMARY | ~2020-03-23 | XMS | Encounter Summary ---
Demographics + + + | Address | [address] | | | [place] [address] | + + + | Home Phone [...] Providers + +------+ + | Care Office Mail Clerk Name | Role | Phone | [...] [facility] | [facility] [address] | | | | | [address] | [facility] [place] | | | | | Mailcode: CH15P | [address] | | | | | [place] for [facility] | [phone] | | | | | and Healing, | | | | | | | | | | | | Floor [place], [place] | | | | | | [address] | | | | | | [phone] | | | +--------+ + + + [...]
--- OUTSIDE RECORDS SUMMARY | ~2020-03-23 | XMS | Encounter Summary ---
Demographics + + + | Address | [address] | | | [place] [address] | + + + | Home Phone [...] Team Providers + +------+ + | Care Assembler Name | Role | Phone | [...] Rd | | | | | | [place], [place] | | | | | | [address] | | | +--------+ + + + [...]
--- OUTSIDE RECORDS SUMMARY | ~2020-03-23 | XMS | Encounter Summary ---
Demographics + + + | Address | [address] | | | [place] [address] | + + + | Home Phone [...] Providers + +------+ + | Care Child Daycare Worker Name | Role | Phone | [...] | | 2016 | | Center at [facility] [address] | | Constipation; | | | | [address] | | Abdominal pain | | | | Mailcode: Center | | | | | | for Health and | | | | | | Healing, Building 2 | | | | | | [place], [place] | | | | | | [address] | | | | | | [phone] | | | +--------+ + + + [...]
--- OUTSIDE RECORDS SUMMARY | ~2020-03-23 | XMS | Encounter Summary ---
Demographics + + + | Address | [address] | | | [place] [address] | + + + | Home Phone [...] Team Providers + +------+ + | Care Subcontracts Manager Name | Role | Phone | + +------+ + | Allegra Gandhi | PCP | | + +------+ + Encounter Details +--------+ + + + + | Date | Type | Department | Care Team | Description | +--------+ + + + + | 03/01/ | Results | [facility] | Janak Riojas, | | | 2011 | Only | Pain Center at | MD [address] [facility] | | | | | [facility] | [facility] [address] | | | | | [address] | [place], [place] | | | | | Mailcode: CH15 | [address] | | | | | [place] for [facility] | [phone] | | | | | and [address]ina, | | | | | | | | | | | | Floor [place], [place] | | | | | | [address] | | | | | | [phone] | | | +--------+ + + + [...]
--- OUTSIDE RECORDS SUMMARY | ~2020-03-23 | XMS | Encounter Summary ---
Demographics + + + | Address | [address] | | | [place] [address] | + + + | Home Phone [...] Providers + +------+ + | Care Tow Truck Dispatcher Name | Role | Phone | [...] 2017 | | Pain Center at | BODY SERVICE TEAM MEMBER [address] | | | | | [facility] | [facility] [place] | | | | | [address] | [address] | | | | | Mailcode: CH15P | [phone] | | | | | [facility] | | | | | | and Healing, | | | | | | Building | | | | | | [place], [place] | | | | | | [address] | | | | | | [phone] | | | +--------+ + + + [...]
--- OUTSIDE RECORDS SUMMARY | ~2020-03-23 | XMS | Encounter Summary ---
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 Surgery check-in location: [facility] Day Stay - [place] for [facility] and Healing, 4th floor Surgery [...] it is after office hours, call the [facility] locomotive crane operator helper at [phone] and ask them to page him or h er. documented in this encounter Progress Notes Catie Smart NP - 11/27/2018 2:05 PM PST PREOPERATIVE CONSULT NOTE Author: Catie Smart NP Referring Physician: Alex Sanchez MD Primary Care Provider: Justo Vazquez MD Reason for Consult: Preoperative evaluation and risk assessment Proposed Procedure/Date: implant SCS; 12/05/2018 Proposed Procedure Location: [facility] HISTORY OF PRESENT ILLNESS: Tracie [...] renal failure no electrolyte abnormalities no dialysis Urology/Refrigeration Unit Repairer: Interstitial cystitis LMP: irreg bleeding, ~11/14/2018, IUD [...] oral recon soln Take as directed by [facility] [employer] [facility]- 2 gallon bowel prep polyethylene glycol [...] Trial spinal cord stimulator leads 08/02/2012 [facility], Surgeon: Janak Riojas MD Cholecystectomy [...] patient is a lso currently scheduled at [facility] [place] and is meeting inclusion [...] to this patient's care. Catie Smart NP [facility] PBB PREOPERATIVE MEDICINE CLINIC AT [facility] 4TH FLOOR [address] [facility] [address] I advised the patient regarding NPO [...]
--- OUTSIDE RECORDS SUMMARY | ~2020-03-23 | XMS | Encounter Summary ---
Demographics + + + | Address | [address] | | | [place] [address] | + + + | Home Phone [...] Team Providers + +------+ + | Care Cartographic Designer Name | Role | Phone | [...] of care) | | | | [facility] | [address] | | | | | [address] | [place], [place] | | | | | Mailcode: CH15P | [address] | | | | | [facility] | [phone] | | | | | and Healing, | | | | | | Building | | | | | | [place], [place] | | | | | | [address] | | | | | | [phone] | | | +--------+ + + + [...]
--- OUTSIDE RECORDS SUMMARY | ~2020-03-23 | XMS | Encounter Summary ---
Demographics + + + | Address | [address] | | | [place] [address] | + + + | Home Phone [...] Providers + +------+ + | Care Mining Support Worker Name | Role | Phone | + +------+ + | Justo Vazquez MD | PCP | | + +------+ + Encounter Details +--------+ + + + + | Date | Type | Department | Care Team | Description | +--------+ + + + + | 06/04/ | Documentati | [facility] | Alex Sanchez, | | | 2019 | on | Pain Center at | ,PhD [address] | | | | | [facility] | [facility] [address] | | | | | [address] | [place], [place] | | | | | Mailcode: CH15P | [address] | | | | | Supply for [facility] | [phone] | | | | | and Healing, | | | | | | | | | | | | Floor [place], [place] | | | | | | [address] | | | | | | [phone] | | | +--------+ + + + [...]
--- OUTSIDE RECORDS SUMMARY | ~2020-03-23 | XMS | Encounter Summary ---
Demographics + + + | Address | [address] | | | [place] [address] | + + + | Home Phone [...] Providers + +------+ + | Care Emergency Dispatch Operator Name | Role | Phone | [...] | [facility] | Aleta Rebollar MD [address] | Nausea | | 2018 | | Pain Center at | [address] | | | | | [facility] | [place], [place] | | | | | [address] | [address] | | | | | Mailcode: CH15P | [phone] | | | | | [facility] | | | | | | joana Mack, | | | | | | [facility] | | | | | | [place], [place] | | | | | | [address] | | | | | | [phone] | | | +--------+ + + + [...]
--- OUTSIDE RECORDS SUMMARY | ~2020-03-23 | XMS | Encounter Summary ---
Demographics + + + | Address | [address] | | | [place] [address] | + + + | Home Phone [...] Team Providers + +------+ + | Care Longwall Foreman Name | Role | Phone | [...] Oliveira | | 2011 | IP | [address] | | House - Approved | | | | [place], | | | | | | [place] [address] | | | +--------+ + + + [...]
--- OUTSIDE RECORDS SUMMARY | ~2020-03-23 | XMS | Encounter Summary ---
Demographics + + + | Address | [address] | | | [place] [address] | + + + | Home Phone [...] Providers + +------+ + | Care Membership Coordinator Name | Role | Phone | + +------+ + | Justo Vazquez MD | PCP | | + +------+ + Encounter Details +--------+ + + + + | Date | Type | Department | Care Team | Description | +--------+ + + + + | 09/27/ | Telephone | [facility] | Ilene Bright, | | | 2017 | | Pain Center at | CENTRAL STERILE TECH [address] | | | | | [facility] | [place], [place] | | | | | [address] | [address] | | | | | Mailcode: CH15P | [phone] | | | | | [facility] | | | | | | and Healing, | | | | | | | | | | | | Floor [place], [place] | | | | | | [address] | | | | | | [phone] | | | +--------+ + + + [...]
--- OUTSIDE RECORDS SUMMARY | ~2020-03-23 | XMS | Encounter Summary ---
Demographics + + + | Address | [address] | | | [place] [address] | + + + | Home Phone [...] Providers + +------+ + | Care Table Games Supervisor Name | Role | Phone | + +------+ + | Justo Vazquez MD | PCP | | + +------+ + Encounter Details +--------+ + + + + | Date | Type | Department | Care Team | Description | +--------+ + + + + | 01/02/ | Telephone | [facility] | Ilene Bright, | | | 2019 | | Pain Center at | GRAPHITE DISK ASSEMBLER [address] | | | | | [facility] | [place], [place] | | | | | [address] | [address] | | | | | Mailcode: CH15P | [phone] | | | | | [facility] | | | | | | and Healing, | | | | | | | | | | | | Floor [place], [place] | | | | | | [address] | | | | | | [phone] | | | +--------+ + + + [...]
--- OUTSIDE RECORDS SUMMARY | ~2020-03-23 | XMS | Encounter Summary ---
Demographics + + + | Address | [address] | | | [place] [address] | + + + | Home Phone [...] Team Providers + +------+ + | Care Money Market Dealer Name | Role | Phone | + [...] | Other | Pain | Diagnoses | Mracelo, | Scott May | | | | Management | Epigastric | Vern Torres NP | D, LAC [address] | | | | | pain | [address] | [address] | | | | | Spasticity | Ave | [facility] [place] | | | | | Procedures | [facility] [place] | [address] | | | | | CONSULT TO | [address] | Phone: | | | | | PAIN | Phone: | [phone] | | | | | MANAGEMENT | [phone] | Fax: | | | | | | Fax: | [phone] | | | | | | [phone] | | +--------+---------+ + + + + [...] | | MD Celia | MD Brendan [address]271 | | | | | Fibromyalgia | [address] | JAYDEN Delvalle | | | | | Spasticity | Ave | [place] | | | | | Epigastric | [place], [place] | Rd [place], | | | | | pain | [address] | [place] | | | | | Procedures | Phone: | [address] | | | | | REQUEST TO | [phone] | Phone: | | | | | SURGERY | Fax: | [phone] | | | | | RESIDENTIAL DIRECTOR | [phone] | Fax: | | | | | [place] INJECT | | [phone] | | | | | TRIGGER | | | | | | | POINT, 1 [place] | | | | | | | 2 [place] INJECT | | | | | | [...] Pain Medicine | Diagnoses | Chasity, | Mechanical Sound Technician Chh1 | | | | / Pain | Abdominal | MD Kenny | [address] | | | | Management | pain, | [address] | Ave | | | | | unspecified | [facility] | Mailcode: | | | | | location | Rd | CH15P Center | | | | | Procedures | [place], [place] | for Health | | | | | CONSULT TO | [address] | and Healing, | | | | | PAIN | | Building | | | | | MANAGEMENT | | 1,15th Floor | | | | | | | [place], [place] | | | | | | | [address] | | | | | | | Phone: | | | | | | | [phone] | | | | | | | Fax: | | | | | | | [phone] | +--------+--------+ + + + + Encounter Details +--------+---------+ + + + | Date | Type | Department | Care Team | Description | +--------+---------+ + + + | 10/11/ | Office | [facility] Comprehensive | Vern Robertson, | Epigastric pain | | 2017 | Visit | Pain Center at | CONTRACT COORDINATOR [address] | (Primary Dx); | | | | [facility] | [facility] [place] | Spasticity | | | | [address] | [address] | | | | | Mailcode: CH15P | [phone] | | | | | [facility] | | | | | | joana Mack, | | | | | | | | | | | | [place], [place] | | | | | | [address] | | | | | | [phone] | | | +--------+---------+ + + + [...] true warrior! * Please sign up for FrenchWebHART. This is the best way to communicate with me. It will save you time in the long run. The procedure you discussed with your doctor is called: Trigger point injection of abdomina l scar. Please make sure this is scheduled with the Claim Professional. PRE-PROCEDURE INSTRUCTIONS 1. Please bring a shag truck driver with you as we may give you medications that impair your ability to drive. This is necessary even if you do not receive sedation. You may take a taxi or ri Panoptocar if you are accompanied by a responsible [...] or blood thinning medications (other than aspirin), [facility] doctor who is doing your procedure will communicate with the provider who is prescribing y our anticoagulant therapy. If you do not have clear instructions on what to do with your an ticoagulant by 2 weeks before your procedure, please contact [facility] to cl arify your instructions. The phone number for questions or concerns is [phone]. * Consider Lidoderm topical or compound prescription [...] muscle hyper tonicity. * Consider increasing your [place] 3 fats. [place]-3 fats are precursors to mediators of inflammation [...] oil if approved by your PCP or lawyer real estate. * Eliminate High Fructose [place] Syrup and Sugar from your diet as [...] [facility] as needed. It was good to see you today. Thank you for taking the time to see us in the [facility] today. As a [...] NP - 1 12/11/2016 1:15 PM PST [facility] Return Visit Date: 10/11/2017 Chief Complaint Patient presents with Abdominal pain Back pain Foot pain History of Present Illness: Tracie Farah is a 27 year old female, whose last appoi ntment at the [facility] was 07/11/17 with [...] She reports multiple diagnostic tests conducted at [facility] in [place], [place] including barium swallow and Hydrogen breath [...] Torodol shots: only form of symptom relief. 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 Goes to [employer] with a light load. Has been working at [email or web address], can' t work on crOpenbravoches. Has roommates. Allergies Allergen Reactions Morphine Anaphylaxis [...] by physician. Concentration is 150mg/mL. Compounded by [facility] ) LAMOTRIGINE 200 MG TABLET Take [...] directed by [facility]- 2 gallon bowel prep POLYETHYLENE [...] review treatment plan. * Follow up with [facility] as needed. I, Guillermo Michaels, am scribing for Vern Robertson NP on 10/11/2017 I have reviewed and verified the above scribed note of my visit with this patient as record ed by Guillermo Hope. Vern Robertson NP PAIN CENTER AT [facility] 15TH FLOOR [address] [facility] [address] Mail Code: Ch15[place] [address] documented in this e ncounter Plan of Treatment Not on filedocumented as of this encounter Visit Diagnoses + + | Diagnosis | + + | Epigastric pain - Primary Abdominal pain, epigastric | + + | Spasticity Abnormal involuntary movements | + + documented in this encounter
--- OUTSIDE RECORDS SUMMARY | ~2020-03-23 | XMS | Encounter Summary ---
Demographics + + + | Address | [address] | | | [place] [address] | + + + | Home Phone | | + + + | Preferred Language | Unknown | + + + | Marital Status | Single | + + + | Jain Affiliation | 1073 | + + + | Race | Unknown | + + + | Ethnic Group | Unknown | + + + Author + + + | Author | [facility] | | | and [place] | + + + | Organization | [facility] | | | and [place] [...] [place] | | | | | [address] | | + + + + + | Bryant Farah | ERICKA | Unknown | | + + + + + Care Team Providers + +------+ + | Care Health Claims Examiner Name | Role | Phone | + +------+ + PCP | Unavailable | + +------+ + Encounter Details +--------+ + + + + | Date | Type | Department | Care Team | Description | +--------+ + + + + | 08/11/ | Hospital | [facility] | | | | 1998 | Encounter | MED CTR XRAY [address] | | | | | | Vandana Garcia | | | | | | [place] [address] | | | | | | [phone] | | | +--------+ + + + [...]
--- OUTSIDE RECORDS SUMMARY | ~2020-03-23 | XMS | Encounter Summary ---
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 | | | | Therapy | CRPS | Janak Martinez MD | Chh[address] | | | | | (complex | [address] | | | | | regional | [address] | Mailcode: | | | | | pain | Mailstop | [facility] Center | | | | | syndrome), | [address] | for Health | | | | | lower limb | [place] | and Healing, | | | | | Gait | [address] | Building [address] | | | | | disturbance | Phone: | [place], [place] | | | | | Muscle pain | [phone] | [address] | | | | | Procedures | Fax: | Phone: | | | | | PHYSICAL | [phone] | [phone] | | | | | THERAPY | [...] regional pain | | | | [facility] | [place] [address] | syndrome), lower | | | | [address] | [phone] | limb (Primary Dx) | | | | Mailcode: CH3P | | | | | | [facility] | | | | | | and Healing, | | | | | | Building [address] | | | | | | Floor [place], [place] | | | | | | [address] | | | | | | [phone] | | | +--------+---------+ + + + [...] might be different f rom the original. [id number] BRODY FARAH Date of : 1990 Start of care: 02/14/2012 Date of onset: 02/14/2012 Referring/Attending Practitioner: Janak Riojas MD . Primary/Referral Diagnosis/ICD-9: 355.71B CRPS (complex regional pain syndrome), lower limb Insurance: Payor: [facility] Plan: BCBS OUT OF STATE Product Type: PP O Service period from: 02/14/2012 to: 08/12/2012 Number visits used/authorized: 04/25 [facility] PHYSICAL THERAPY PROGRESS [...] Rehabilitation Services Mailcode: Ch3p [address] [facility], 1st [facility] [address] documented in this encounter Plan of Treatment Not on filedocumented as of this encounter Procedures + +--------+ + + + | Procedure Name | Priori | Date/Time | Associated Diagnosis | Comments | | | ty | | | | + +--------+ + + + | TN THERAPEUTIC | Routin | 06/13/2012 | CRPS [...]
--- OUTSIDE RECORDS SUMMARY | ~2020-03-23 | XMS | Encounter Summary ---
Demographics + + + | Address | [address] | | | [place] [address] | + + + | Home Phone [...] Team Providers + +------+ + | Care Hangar Attendant Name | Role | Phone | + +------+ + | Justo Vazquez MD | PCP | | + +------+ + Encounter Details +--------+ + + + + | Date | Type | Department | Care Team | Description | +--------+ + + + + | 12/05/ | Pharmacy | [facility] | | | | 2019 | Visit | & [facility]acy | | | | | | [address] | | | | | | Mailcode: [place] | | | | | | [facility] and | | | | | | Healing, Building 1 | | | | | | [place], [place] | | | | | | [address] | | | | | | [phone] | | | +--------+ + + + [...]
--- OUTSIDE RECORDS SUMMARY | ~2020-03-23 | XMS | Encounter Summary ---
Demographics + + + | Address | [address] | | | [place] [address] | + + + | Home Phone [...] Providers + +------+ + | Care Hand Paster Name | Role | Phone | + [...] | | | syndrome | [facility] | [facility] | | | | | type 1 of | Rd | Rd [place], | | | | | left lower | [facility] [place] | [place] | | | | | extremity | [address] | [address] | | | | | Procedures | Phone: | Phone: | | | | | REQUEST TO | [phone] | [phone] | | | | | SURGERY | Fax: | Fax: | | | | | MARKET DEVELOPMENT EXECUTIVE | [phone] | [phone] | +--------+---------+ + + + + Reason [...] | | | | | Procedures | [place], [place] | [place], | | | | | CONSULT [place] | [address] | [place] | | | | | PAIN | | [address] | | | | | MANAGEMENT | | Phone: | | | | | | | [phone] | | | | | | | Fax: | | | | | | | [phone] | +--------+--------+ + + + + Encounter Details +--------+---------+ + + + | Date | Type | Department | Care Team | Description | +--------+---------+ + + + | 10/09/ | Office | [facility] | Alex Sanchez, | Complex regional | | 2018 | Visit | Pain Center at | ,PhD [address] [facility] | pain syndrome type 1 | | | | [facility] | [facility] [address] | of left lower | | | | [address] | [facility] [place] | extremity (Primary | | | | Mailcode: CH15P | [address] | Dx) | | | | [facility] | [phone] | | | | | and Healing, | | | | | | | | | | | | Floor [place], [place] | | | | | | [address] | | | | | | [phone] | | | +--------+---------+ + + + [...] Patient Instructions YesiMelodyh - 10/09/2018 10:00 AM Shona, Thank you for taking the time to see us in the [facility]. It was great to s ee you. Below is a summary of the discussion that we had today: - I have provided you with an external order to see a onboarding specialist today. Please p resent this referral [...] insurance. PRE-PROCEDURE INSTRUCTIONS 1. Please bring a coach driver with you as we may give [...] or blood thinning medications (other than aspirin), [facility] doctor who is doing your procedure will communicate with the provider who is prescribing y our anticoagulant therapy. If you do not have clear instructions on what to do with your an ticoagulant by 2 weeks before your procedure, please contact [facility] to cl arify your instructions. The phone number for questions or concerns is [phone]. documented in this encounter Progress Notes Alex [...] notes. Alex Sanchez MD,PhD [facility] TracyElectronically signed by Alex Sanchez MD,PhD at 09/15 [...] Person MD - 10/09/2018 10:00 AM PST [facility] Return Visit Date: 10/09/2018 Chief Complaint Patient presents with Back pain Low back pain Pain in left leg Knee pain Ankle pain Foot pain History of Present Illness: Tracie Farah is a 28 year old female, whose last appoi ntment at the [facility] was September 28, 2018, for [...] She went into the emergency room in [place], [place] where they rem cady the leads. [...] which she suspects also used dissolvable stitches. DEDICATED DRIVER Brief Pain Inventory: (ten= worst possible pain [...] a light load. Has been working at [employer], can' t work on crlettrs. Has roommates. Allergies Allergen Reactions Morphine Anaphylaxis [...] the vein (IV) every eight hour s. 0252-4145-68 COMPOUNDED MED RX CONTROLLED (SEE ADMIN INSTRUCT [...] by physician. Concentration is 150mg/mL. Compounded by [employer] ( [phone]) KETOROLAC IM Inject into the muscle (IM). [...] (IV) every twel ve hours as needed. 3171-1113-95 ONDANSETRON 4 MG DISINTEGRATING TABLET Dissolve 1 tablet in mouth every twelve hours as nee ded. PANTOPRAZOLE 40 MG TABLET,DELAYED RELEASE Take 40 mg by mouth once daily. PEG 3350-ELECTROLYTES 236 GRAM-22.74 GRAM-6.74 GRAM-5.86 GRAM SOLUTION Take as directed by [facility] Digestive Health- 2 gallon [...] and summary of old medical records (source: [employer]), as summarized in the body of the [...] Arben Valerio MD [facility] C[facility] AT [facility] 15TH FLOOR [address] [facility] Mail Code: [place] [address] [phone] signed by Alex Sanchez MD,PhD at 10/10/2018 9:27 AM [facility] umented in this encounter Plan of Treatment Not on filedocumented as of this encounter Visit Diagnoses + + | Diagnosis | + + | Complex regional pain syndrome type 1 of left lower extremity - Primary | + + documented in this encounter
--- OUTSIDE RECORDS SUMMARY | ~2020-03-23 | XMS | Encounter Summary ---
[...] Team Providers + +------+ + | Care Personnel Supervisor Name | Role | Phone | [...] | Pain | | 2016 | | [place] [facility] [address] | | | | | | [address] | | | | | | Mailcode: Center | | | | | | for Health and | | | | | | Healing, Building 2 | | | | | | [place], [place] | | | | | | [address] | | | | | | [phone] | | | +--------+ + + + [...]
--- OUTSIDE RECORDS SUMMARY | ~2020-03-23 | XMS | Encounter Summary ---
Demographics + + + | Address | [address] | | | [place] [address] | + + + | Home Phone [...] Team Providers + +------+ + | Care Course Developer Name | Role | Phone | [...] at [facility] [address] | | pain | | | | [address] | | | | | | Mailcode: [place] | | | | | | for Health and | | | | | | [facility], Building 2 | | | | | | [place], [place] | | | | | | [address] | | | | | | [phone] | | | +--------+ + + + [...]
--- OUTSIDE RECORDS SUMMARY | ~2020-03-23 | XMS | Encounter Summary ---
Demographics + + + | Address | [address] | | | [place] [address] | + + + | Home Phone [...] Team Providers + +------+ + | Care Preboarder Name | Role | Phone | + +------+ + | Justo Vazquez MD | PCP | | + +------+ + Encounter Details +--------+ + + + + | Date | Type | Department | Care Team | Description | +--------+ + + + + | 03/16/ | Telephone | Digestive Health | Crys Gomez, | | | 2016 | | [place] at [facility] [address] | [address] | | | | | [address] | [address] | | | | | Mailcode: Center | [place], [place] | | | | | [facility] and | [address] | | | | | [facility] | [phone] | | | | | [place], [place] | | | | | | [address] | | | | | | [phone] | | | +--------+ + + + [...]
--- OUTSIDE RECORDS SUMMARY | ~2020-03-23 | XMS | Encounter Summary ---
Demographics + + + | Address | [address] | | | [place] [address] | + + + | Home Phone [...] Team Providers + +------+ + | Care Guest Service Host Name | Role | Phone | [...] JAYDEN Shane | | | | | [facility] | [place], | | | | | [address] | [place] [address] | | | | | Mailcode: 15P | [phone] | | | | | [facility] | | | | | | joana Mack, | | | | | | Building | | | | | | [place], [place] | | | | | | [address] | | | | | | [phone] | | | +--------+ + + + [...]
--- OUTSIDE RECORDS SUMMARY | ~2020-03-23 | XMS | Encounter Summary ---
Demographics + + + | Address | [address] | | | [place] [address] | + + + | Home Phone [...] Providers + +------+ + | Care Residential Recycle Driver Name | Role | Phone | + +------+ + | Justo Vazquez MD | PCP | | + +------+ + Encounter Details +--------+ + + + + | Date | Type | Department | Care Team | Description | +--------+ + + + + | 03/17/ | MyChart | [facility] [place] | Yun Frey NP | Welcome | | 2017 | Encounter | Pain Center at | [address] | | | | | [facility] | [place], [place] | | | | | [address] | [address] | | | | | Mailcode: CH15P | [phone] | | | | | [place] for [facility] | | | | | | and Healing, | | | | | | | | | | | | Floor [place], [place] | | | | | | [address] | | | | | | [phone] | | | +--------+ + + + [...]
--- OUTSIDE RECORDS SUMMARY | ~2020-03-23 | XMS | Encounter Summary ---
Demographics + + + | Address | [address] | | | [place] [address] | + + + | Home Phone [...] Providers + +------+ + | Care Temperature Logging Operator Name | Role | Phone | [...] | | Pain Center at | ,PhD [address] [facility] | follow-up | | | | [facility][Note 3] | [address] Gi[address]ano | | | | | [address] | [place], [place] | | | | | Mailcode: CH15P | [address] | | | | | [facility] | [phone] | | | | | and Martina, | | | | | | Building | | | | | | Floor [place], [place] | | | | | | [address] | | | | | | [phone] | | | +--------+ + + + [...]
--- OUTSIDE RECORDS SUMMARY | ~2020-03-23 | XMS | Encounter Summary ---
Demographics + + + | Address | [address] | | | [place] [address] | + + + | Home Phone [...] Team Providers + +------+ + | Care Alarm Security Or Surveillance Monitor Name | Role | Phone | [...] | | | sympathetic | [place] | [address]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 | FAMILY | Mailstop | | | | | of lower | MEDICINE P | [address] | | | | | limb | [address] | [place], [place] | | | | | | [place], | [address] | | | | | | [place] [address] | Phone: | | | | | | Phone: | [phone] | | | | | | [phone] | Fax: | | | | | | Fax: | [phone] | | | | | | [phone] | | +--------+--------+ + + + + Encounter Details +--------+---------+ + + + | Date | Type | Department | Care Team | Description | +--------+---------+ + + + | 03/17/ | Office | [facility] | Dale Cantu, | CRPS (complex | | 2011 | Visit | Pain Center at | [address] | regional pain | | | | [place] | [address] [address] | syndrome), lower | | | | [address] | [place], [place] | limb; Adjustment | | | | Mailcode: CH15 | [address] | reaction; Muscle | | | | [facility] | [phone] | pain; Gait | | | | and Healing, | | disturbance | | | | Building | | | | | | Floor [place], [place] | | | | | | [address] | | | | | | [phone] | | | +--------+---------+ + + + [...] Pain: After Your Visit", log into your [employer] nt at [email or web address]. You can enter [id number] in the [employer] Library" search box. Not on NetManagehart? Review the MyChart section of your After Visit Summary for directions on liz rea to sign up. 6834-4065 Fipeo. Care instructions adapted under license by [facility]. This care instruction is for use with your licensed healthcar e professional. If you have questions about a medical condition or this instruction, always ask your healthcare professional. [employer] disclaims any warranty or liabili ty for your use of this information. Content Version: 9.2.133597; Last Revised: April 29, 2011 Nortriptyline for [...] Pain: After Your Visit", log into your [employer] nt at [email or web address]. You can enter G828 in the [employer] Library" search box. Not on [place]? Review the NetManagehart section of your After Visit Summary for directions on ho w to sign up. 6967-7109 Fipeo. Care instructions adapted under license by [facility]. This care instruction is for use with your licensed healthcar e professional. If you have questions about a medical condition or this instruction, always ask your healthcare professional. [employer] disclaims any warranty or liabili ty for your use of this information. Content Version: 9.2.423931; Last Revised: April 29, 2011 documented in this encounter Progress Notes Dale Cantu MD - 03/17/2012 4:21 PM PDTI saw and evaluated the patient with Resident : Marquis Elaine MD, who conducted the initial history. I reviewed the history in detail a nd edited his note. I was present for the examination and formulation portions of the [facility]. I agree with the findings and the plan of care as documented in our notes. DALE CANTU MD Financial Foundations Representative, [facility] Microcomputer Support Specialist, Pain Medicine Professor, Anesthesiology & Perioperative Medicine NAMollMarquis manriquez MD - 03/17/2012 3:42 PM PDT [facility] Comprehensive [facility] Center Return [...] her pain. She continues to take 6-8 [place] per day and 600 mg of ibuprofen [...] and a pain drawing which I reviewed. [facility] Brief Pain Inventory: (ten= worst possible [...] The Review of Systems obtained by the [facility] was reviewed. Additional Review of Systems: [...] you require any medication refills today? 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 Bones, Joints, and Muscles: cramps [...]
--- OUTSIDE RECORDS SUMMARY | ~2020-03-23 | XMS | Encounter Summary ---
Demographics + + + | Address | [address] | | | [place] [address] | + + + | Home Phone [...] Team Providers + +------+ + | Care Crossing Gateman Name | Role | Phone | + [...] | | Pain Center at | ,PhD [address] [facility] | sig) | | | | [facility] | [facility] | | | | | [address] | [facility] [place] | | | | | Mailcode: CH15P | [address] | | | | | [facility] | [phone] | | | | | and [address], | | | | | | Building | | | | | | [place], [place] | | | | | | [address] | | | | | | [phone] | | | +--------+ + + + [...]
--- OUTSIDE RECORDS SUMMARY | ~2020-03-23 | XMS | Encounter Summary ---
Demographics + + + | Address | [address] | | | [place] [address] | + + + | Home Phone | | + + + | Preferred Language | Unknown | + + + | Marital Status | Single | + + + | Islam Affiliation | 1073 | + + + | Race | Unknown | + + + | Ethnic Group | Unknown | + + + Author + + + | Author | [facility] | | | and Marvinana | + + + | Organization | [facility] | | | and [...] [place] | | | | | [address] | | + + + + + | Bryant Farah | ECON | Unknown | | + + + + + Care Team Providers + +------+ + | Care Tablet Making Machine Operator Helper Name | Role | Phone | + +------+ + PCP | Unavailable | + +------+ + Encounter Details +--------+ + + + + | Date | Type | Department | Care Team | Description | +--------+ + + + + | 06/22/ | Emergency | [facility] | Chung Portillo | Nondiabetic | | 2016 | | MEDICAL CENTER | DO [address] | gastroparesis | | | | EMERGENCY CENTER | [address] | | | | | [address] | [place], [place] | | | | | [place], [place] | [address] | | | | | [address] | [phone] | | | | | [phone] | | | +--------+ + + + [...] EXTERNAL | | | | performed at [facility];888 | K/uL | LAB | | | | [address];[place] | | | | | | [address] | | | | + + + + + + | Red Blood | 4.46Comment: Testing | 3.70 - 5.10 | EXTERNAL | | | Cells | performed at [facility];888 | M/uL | LAB | | | Counted | [address];[place] | | | | | | [address] | | | | + + + + + + | Hemoglobin | 13.9Comment: Testing | 11.3 - 15.5 | EXTERNAL | | | | performed at [facility];888 | g/dL | LAB | | | | [address];[place] | | | | | | [address] | | | | + + + + + + | Hematocrit, | 41.0Comment: Testing | 34.0 - 46.0 % | EXTERNAL | | | POC | performed at [facility];888 | | LAB | | | | [address];[place] | | | | | | [address] | | | | + + + + + + | MCV | 91.9Comment: Testing | 80.0 - 100.0 fl | EXTERNAL | | | | performed at [facility];888 | | LAB | | | | [address];[place] | | | | | | [address] | | | | + + + + + + | MCH | 31.1Comment: Testing | 27.0 - 34.0 pg | EXTERNAL | | | | performed at [facility];888 | | LAB | | | | [address];[place] | | | | | | [address] | | | | + + + + + + | MCHC | 33.9Comment: Testing | 32.0 - 35.5 | EXTERNAL | | | | performed at [facility];888 | g/dL | LAB | | | | [address];[place] | | | | | | [address] | | | | + + + + + + | RDW-CV | 40.3Comment: Testing | 37 - 53 fl | EXTERNAL | | | | performed at [facility];888 | | LAB | | | | [address];[place] | | | | | | [address] | | | | + + + + + + | Platelet | 203Comment: Testing | 150 - 400 K/uL | EXTERNAL | | | Count | performed at [facility];888 | | LAB | | | Plasma | [address];[place] | | | | | | [address] | | | | + + + + + + | MPV | 8.3Comment: Testing | fl | EXTERNAL | | | | performed at [facility];888 | | LAB | | | | [address];[place] | | | | | | [address] | | | | + + + + + + | Differentia | AUTOMATEDComment: | | EXTERNAL | | | l Type | Testing performed at | | LAB | | | | [facility];[address];[place] [address] | | | | + + + + + + | % Segmented | 65.86Comment: Testing | % | EXTERNAL | | | | performed at [facility];888 | | LAB | | | Neutrophils | [address];[place] | | | | | | [address] | | | | + + + + + + | % | 25.52Comment: Testing | % | EXTERNAL | | | Lymphocytes | performed at [facility];888 | | LAB | | | | [address];[place] | | | | | | [address] | | | | + + + + + + | % Monocytes | 6.38Comment: Testing | % | EXTERNAL | | | | performed at [facility];888 | | LAB | | | | [address];[place] | | | | | | [address] | | | | + + + + + + | % | 1.61Comment: Testing | % | EXTERNAL | | | Eosinophils | performed at [facility];888 | | LAB | | | | [address];[place] | | | | | | [address] | | | | + + + + + + | % Basophils | 0.63Comment: Testing | % | EXTERNAL | | | | performed at [facility];888 | | LAB | | | | [address];[place] | | | | | | [address] | | | | + + + + + + | Absolute | 6.91Comment: Testing | 1.90 - 7.40 | EXTERNAL | | | Segmented | performed at [facility];888 | K/uL | LAB | | | Neutrophils | [address];[place] | | | | | | [address] | | | | + + + + + + | Absolute | 2.68Comment: Testing | 1.00 - 3.90 | EXTERNAL | | | Lymphocytes | performed at [facility];888 | K/uL | LAB | | | | [address];[place] | | | | | | [address] | | | | + + + + + + | Absolute | 0.67Comment: Testing | 0.00 - 0.80 | EXTERNAL | | | Monocytes | performed at [facility];888 | K/uL | LAB | | | | [address];[place] | | | | | | [address] | | | | + + + + + + | Absolute | 0.17Comment: Testing | 0.00 - 0.50 | EXTERNAL | | | Eosinophils | performed at [facility];888 | K/uL | LAB | | | | [address];[place] | | | | | | [address] | | | | + + + + + + | Absolute | 0.07Comment: Testing | 0.00 - 0.10 | EXTERNAL | | | Basophils | performed at [facility];888 | K/uL | LAB | | | | [address];[place] | | | | | | [address] | | | | + + + [...] EXTERNAL | | | | performed at [facility] | | LAB | | | | [facility] | | | | | | [address] | | | | + + + [...] EXTERNAL | | | | performed at [facility] | | LAB | | | | [address];[place], [place] | | | | | | [address] | | | | + + + [...] LAB | | | | performed at [facility];888 | | | | | | [address];[place] | | | | | | [address] | | | | + + + [...] EXTERNAL | | | | performed at [facility];888 | | LAB | | | | [address];[place] | | | | | | [address] | | | | + + + [...] EXTERNAL | | | | performed at [facility];888 | mmol/L | LAB | | | | [address];[place] | | | | | | [address] | | | | + + + [...] EXTERNAL | | | | performed at [facility];888 | | LAB | | | | [address];[place], [place] | | | | | | [address] | | | | + + + [...] EXTERNAL | | | | performed at [facility];888 | mmol/L | LAB | | | | [address];[place] | | | | | | [address] | | | | + + + + + + | K | 3.8Comment: Testing | 3.5 - 4.9 | EXTERNAL | | | | performed at [facility];888 | mmol/L | LAB | | | | [address];[place] | | | | | | [address] | | | | + + + + + + | Cl | 104Comment: Testing | 99 - 109 mmol/L | EXTERNAL | | | | performed at [facility];888 | | LAB | | | | [address];[place] | | | | | | [address] | | | | + + + + + + | CO2 | 27Comment: Testing | 23 - 32 mmol/L | EXTERNAL | | | | performed at [facility];888 | | LAB | | | | [address];[place] | | | | | | [address] | | | | + + + + + + | Anion Gap | 12Comment: Testing | 5 - 20 mmol/L | EXTERNAL | | | | performed at [facility];888 | | LAB | | | | [address];[place] | | | | | | [address] | | | | + + + + + + | Glucose, | 80Comment: Testing | 65 - 99 mg/dL | EXTERNAL | | | Fasting | performed at [facility];888 | | LAB | | | | [address];[place] | | | | | | [address] | | | | + + + + + + | BUN | 4 (L)Comment: Testing | 8 - 25 mg/dL | EXTERNAL | | | | performed at [facility];888 | | LAB | | | | [address];[place] | | | | | | [address] | | | | + + + + + + | Creatinine | 0.83Comment: Testing | 0.50 - 1.00 | EXTERNAL | | | | performed at [facility];888 | mg/dL | LAB | | | | [address];[place] | | | | | | [address] | | | | + + + + + + | BUN/Creatin | 5Comment: Testing | | EXTERNAL | | | ine Ratio | performed at [facility];888 | | LAB | | | | [address];[place] | | | | | | [address] | | | | + + + + + + | Calcium | 9.1Comment: Testing | 8.5 - 10.5 | EXTERNAL | | | | performed at [facility];888 | mg/dL | LAB | | | | [address];[place] | | | | | | [address] | | | | + + + + + + | Protein, | 7.4Comment: Testing | 6.3 - 8.2 g/dL | EXTERNAL | | | Total | performed at [facility];888 | | LAB | | | | [address];[place] | | | | | | [address] | | | | + + + + + + | Albumin | 4.5Comment: Testing | 3.6 - 5.0 g/dL | EXTERNAL | | | | performed at [facility];888 | | LAB | | | | [address];[place] | | | | | | [address] | | | | + + + + + + | Globulin | 3.0Comment: Testing | 1.3 - 4.9 g/dL | EXTERNAL | | | | performed at [facility];888 | | LAB | | | | [address];[place] | | | | | | [address] | | | | + + + + + + | A/G Ratio | 1.5Comment: Testing | 1.0 - 2.4 | EXTERNAL | | | | performed at [facility];888 | | LAB | | | | [address];[place] | | | | | | [address] | | | | + + + + + + | Bilirubin | 0.6Comment: Testing | 0.1 - 1.5 mg/dL | EXTERNAL | | | Total | performed at [facility];888 | | LAB | | | | [address];[place] | | | | | | [address] | | | | + + + + + + | ALP, | 61Comment: Testing | 35 - 115 U/L | EXTERNAL | | | External | performed at [facility];888 | | LAB | | | | [address];[place] | | | | | | [address] | | | | + + + + + + | AST | 7 (L)Comment: Testing | 10 - 45 U/L | EXTERNAL | | | | performed at [facility];888 | | LAB | | | | [address];[place] | | | | | | [address] | | | | + + + + + + | ALT | 20Comment: Testing | 10 - 65 U/L | EXTERNAL | | | | performed at [facility];888 | | LAB | | | | [address];[place] | | | | | | [address] | | | | + + + [...] | | | | | | at [facility];[address] | | | | | | [address];[place] [address] | | | | + + + [...] EXTERNAL | | | | performed at [facility];888 | | LAB | | | | [address];[place] | | | | | | [address] | | | | + + + + + + | Clarity | CLEARComment: Testing | | EXTERNAL | | | | performed at [facility];[address] | | LAB | | | | [address];[place] | | | | | | [address] | | | | + + + + + + | Specific | 1.005Comment: Testing | 1.002 - 1.030 | EXTERNAL | | | Solomon, | performed at [facility];888 | | LAB | | | Urine | [address];[place] | | | | | | [address] | | | | + + + + + + | Leukocyte | NEGATIVEComment: Testing | | EXTERNAL | | | Esterase, | performed at [facility];888 | | LAB | | | Urine | [address];[place] | | | | | | [address] | | | | + + + + + + | Nitrite, | NEGATIVEComment: Testing | | EXTERNAL | | | Urine | performed at [facility];888 | | LAB | | | | [address];[place] | | | | | | [address] | | | | + + + + + + | Urobilinoge | NORMALComment: Testing | mg/dL | EXTERNAL | | | n, Urine | performed at [facility];888 | | LAB | | | | [address];[place] | | | | | | [address] | | | | + + + + + + | Protein, | NEGATIVEComment: Testing | mg/dL | EXTERNAL | | | Urine | performed at [facility];888 | | LAB | | | | [address];[place] | | | | | | [address] | | | | + + + + + + | pH, Urine | 7.0Comment: Testing | 5.0 - 8.0 | EXTERNAL | | | | performed at [facility];888 | | LAB | | | | [address];[place] | | | | | | [address] | | | | + + + + + + | Blood, | NEGATIVEComment: Testing | | EXTERNAL | | | Urine | performed at [facility];888 | | LAB | | | | [address];[place] | | | | | | [address] | | | | + + + + + + | Ketones | NEGATIVEComment: Testing | mg/dL | EXTERNAL | | | | performed at [facility];888 | | LAB | | | | [address];[place] | | | | | | [address] | | | | + + + + + + | Bilirubin, | NEGATIVEComment: Testing | | EXTERNAL | | | Urine | performed at [facility];888 | | LAB | | | | [address];[place] | | | | | | [address] | | | | + + + + + + | Glucose, | NEGATIVEComment: Testing | mg/dL | EXTERNAL | | | Urine | performed at [facility];888 | | LAB | | | | [address];[place], [place] | | | | | | [address] | | | | + + + [...] | | | Ur | performed at [facility] | | LAB | | | | [address];[place], [place] | | | | | | [address] | | | | + + + [...]
--- OUTSIDE RECORDS SUMMARY | ~2020-03-23 | XMS | Encounter Summary ---
Demographics + + + | Address | [address] | | | [place] [address] | + + + | Home Phone [...] Providers + +------+ + | Care Filler Machine Operator Name | Role | Phone [...] JAYDEN Shane | | | | | [facility] | [facility], | | | | | [address] | [place] [address] | | | | | Mailcode: 15P | [phone] | | | | | [facility] | | | | | | joana Mack, | | | | | | Building | | | | | | [place], [place] | | | | | | [address] | | | | | | [phone] | | | +--------+ + + + [...]
--- OUTSIDE RECORDS SUMMARY | ~2020-03-23 | XMS | Encounter Summary ---
Demographics + + + | Address | [address] | | | [place] [address] | + + + | Home Phone [...] Team Providers + +------+ + | Care Steerer Name | Role | Phone | + [...] + + | 12/05/ | Hospital | [facility] | Alex Sanchez, | | | 2019 | Encounter | STAY [address] | ,PhD [address] [facility] | | | | | Courtney Mailcode: [facility] | [address] | | | | | [facility] | [place], [place] | | | | | [facility] [place], | [address] | | | | | [place] [address] | [phone] | | | | | [place], [place] | | | | | | [address] | | | | | | [phone] | | | +--------+ + + + [...] s/p successful DRG trial lead system with [employer] on 09/25/2018. No changes in H&P, [...] OPERATIVE NOTE Date: December 05, 2018 Location: [facility] [place] | | | Tracie Farah [id number] :1990, presents to clinic | | | for: Dorsal root ganglion stimulator implant PROCEDURE: Dorsal | | | root ganglion stimulator implant PRE-OPERATIVE DIAGNOSIS: Complex | | | regional Pain syndrome type 1 of left lower extremity | | | POST-OPERATIVE DIAGNOSIS: Complex regional Pain syndrome type 1 of | | | left lower extremity ATTENDING PHYSICIAN: Alex Sanchez | | | CAN STERILIZER: Arben Valerio MD ANESTHESIA: sedation by IVIS Cole | | | Carmen, supervised by electric lift truck driver Ilir Valdes. | | | FINDINGS: Appropriate [...] sedation. Ms. Farah was escorted to the [facility] | | | [place], where [...] to the | | | [facility] [employer] uniforms sales representative. A test stimulation was performed [...] recovery. Images were saved, and sent to [employer]. | | | Alex Sanchez (attending) was present for the entire procedure. | | | Arben Valerio MD I was present for the entire procedure | | | (spinal cord stimulator implantation with DRG leads at left L4 and | | | L5) and all bocanegra elements of this visit. I reviewed the | | | documentation of the other RESTAURANT DELIVERY DRIVER providers and concur with Dr. | | | Iman's findings. I edited his note. Alex Sanchez, | | | ,PhD Light Armored Vehicle Officer Anesthesiology and Pain Management | | | [facility] | | + + + HCG URINE, [...] + + | JOSE ANTONIO MIN | [address] [facility] | [place] [address] | | | OF CARE TESTS | [...]
--- OUTSIDE RECORDS SUMMARY | ~2020-03-23 | XMS | Encounter Summary ---
Demographics + + + | Address | [address] | | | [place] [address] [...] Team Providers + +------+ + | Care Religion Instructor Name | Role | Phone | [...] | | | sympathetic | [place] | [address]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 | FAMILY | Mailstop | | | | | of lower | MEDICINE P | [id number] | | | | | limb | [address] | [place], [place] | | | | | | [place], | [address] | | | | | | [place] [address] | Phone: | | | | | | Phone: | [phone] | | | | | | [phone] | Fax: | | | | | | Fax: | [phone] | | | | | | [phone] | | +--------+--------+ + + + + [...] | regional pain | | | | [facility] | [facility] [id number] | syndrome), lower | | | | [address] | [place], [place] | limb (Primary Dx) | | | | Mailcode: [id number] | [address] | | | | | [facility] | [phone] | | | | | and Healing, | | | | | | Building | | | | | | Floor [place], [place] | | | | | | [address] | | | | | | [phone] | | | +--------+---------+ + + + [...] evaluated the patient with Fellow Nhan Guo [facility], who conducted the initial history. I reviewed the history in det ail and edited his note. I was present for the examination and formulation portions of the encounter. I agree with the findings and the plan of care as documented in our notes. DALE CANTU MD Retail Attendant, [facility] Radio Station Operator, Pain Medicine Professor, Anesthesiology & Perioperative [...] physical activity and social withdrawal enok Gutierrez, [facility] - 08/04/2012 7:25 AM PDTFormatting of this note might be different from the [facility] Return Visit with [...] has been treated at the [facility] for lower limb pain with the following [...] and a pain drawing which I reviewed. [facility] Brief [...] The [facility] reviewed. Additional Review of Systems: [...] multiple programs with both [facility] programs, however it appears that it [...] bath today, OK to shower. HENOK GUO, [facility] documented in this en counter Plan of Treatment Not on filedocumented as of this encounter Visit Diagnoses + + | Diagnosis | + + | CRPS (complex regional pain syndrome), lower limb - Primary Causalgia of lower limb | + + documented in this encounter
--- OUTSIDE RECORDS SUMMARY | ~2020-03-23 | XMS | Encounter Summary ---
Demographics + + + | Address | [address] | | | [place] [address] | + + + | Home Phone [...] Team Providers + +------+ + | Care Bay Stocker Name | Role | Phone | + [...] | | | | | [address] | | | | | | [address] | | | | | | [place], | | | | | | [address] [place] [address], | | | | | | [place] [address] | | | | | | [phone] | | | +--------+ + + + [...]
--- OUTSIDE RECORDS SUMMARY | ~2020-03-23 | XMS | Encounter Summary ---
Demographics + + + | Address | [address] | | | [place] [address] | + + + | Home Phone [...] Team Providers + +------+ + | Care Perinatology Physician Name | Role | Phone | + +------+ + | Justo Vazquez MD | PCP | | + +------+ + Encounter Details +--------+ + + + + | Date | Type | Department | Care Team | Description | +--------+ + + + + | 06/04/ | Documentati | [facility] | Alex Sanchez, | | | 2019 | on | Pain Center at | ,PhD [address] | | | | | [facility] | [facility] [address] | | | | | [address] | [place], [place] | | | | | Mailcode: CH15P | [address] | | | | | [place] [facility] | [phone] | | | | | and Healing, | | | | | | | | | | | | Floor [place], [place] | | | | | | [address] | | | | | | [phone] | | | +--------+ + + + [...]
--- OUTSIDE RECORDS SUMMARY | ~2020-03-23 | XMS | Encounter Summary ---
Demographics + + + | Address | [address] | | | [place] [address] | + + + | Home Phone [...] Providers + +------+ + | Care Recreational Resort Manager Name | Role | Phone | [...] | | syndrome | [address] | [address] | | | | | type [address] of | [address] | Rd [place], | | | | | left lower | [place], [place] | [place] | | | | | extremity | [address] | [address] | | | | | Muscle pain | Phone: | Phone: | | | | | Procedures | [phone] | [phone] | | | | | REQUEST TO | Fax: | Fax: | | | | | SURGERY | [phone] | [phone] | | | | | TELESERVICES REPRESENTATIVE | | | | | | | AZ INJ,ANES | | | | | | | AGENT,SCIATI | | | | | | | C | | | | | | | NERVE,SINGLE | | | | | | | AZ INJECT | | | | | | | NERV | | | | | | | BLCK,OTHR | | | | | | | PERIPH NERV | | | | | | | AZ SONO | | | | | | | GUIDE FOR | | | | | | | NEEDLE | | | | | | | PLACEMENT | | | | | | | AZ MOD | | | | | | | SEDATION | | | | | | | >=5YRS SAME | | | | | | | MD/QUAL | | | | | | | PROV; INIT | | | | | | | 15 MIN AZ | | | | | | [...] 12/27/ | Procedure | [facility] at [facility] | Alex Sanchez, | Pain in left leg; | | 2017 | | [address] | ,PhD [address] [facility] | Procedure | | | | Mailcode: CH15P | [facility] | | | | | [place] for [facility] | [place], [place] | | | | | and Healing, | [address] | | | | | | [phone] | | | | | [place], [place] | | | | | | [address] | | | | | | [phone] | | | +--------+ + + + [...] mi nayelit be different from the original. [facility] Patient Instructions - Post Interventional Procedure Date: 12/27/2017 Name: Tracie Farah Date of : 1990 Procedure Performed: trigger point injection and popliteal/sciatic block. Procedure Provider: Alex Sanchez MD,PhD If you have any problems you believe are associated with your procedure tonight, Please call the [facility] Ell Teacher, and ask for the Pain Management Consu ltant. If you have problems or questions between 9:00 am and 4:00 pm, Please call the [facility] Nurse Triage Line, . If [...] paper. Please fax the pain diary to [phone] or attach a scanned image of it to a [employer] message to your doct or.. The area [...] to the larry ent. David Linares MD [facility] documented in this encounter Progress Notes Alex Sanchez MD,PhD - 12/27/2017 3:00 PM PSTI was present for the entire procedure ( popliteal nerve block and abdominal scar neuroma injection) and all bocanegra elements of this vis it. I reviewed the documentation of the other [facility] providers and concur with Dr. Linares's findings. I edited his note. Alex Sanchez MD,PhD Glass Checker Anesthesiology and Pain Management [facility] May David Pennington MD - 12/27/2017 3:00 PM PSTPROVICHIOMA OPERATIVE NOTE Date: December 27, 2017 Location: [facility] Procedure Room Tracie Farah [id number] :1990, presents to clinic for: PROCEDURE: Popliteal/sciatic [...] scar neuroma ATTENDING PHYSICIAN: Alex Sanchez MD,PhD TRAFFIC EXPERT: Fellow David Linares MD ANESTHESIA: sedation Isadora [...] sedation. Ms. Farah was escorted to the [facility] Procedure R oom, [...] procedure. Images were saved, and sent to [employer]. Ms. Farah was transported to the [facility] post-procedure recovery area. She [...] by physician. Concentration is 150mg/mL. Compounded by [facility] ) LEVONORGESTREL 20 MCG/24 HR (5 [...] GRAM-5.86 GRAM SOLUTION Take as directed by [facility]- 2 gallon bowel prep POLYETHYLENE GLYCOL [...] PRE-SEDATION: Date: December 27, 2017 Tracie Farah [id number] 1990 ALLERGIES: Morphine Previous reaction to Sedation/Analgesia: [...] PRE-SEDATION: Date: December 27, 2017 Tracie Farah [id number] 1990 See RN /ZOFIA Pre-Sedation Note. IV ACCESS:Right subc PAC. BASELINE VS: See Sedation Flow Sheet. Tracie Ocampojulita Farah [id number] 1990, presents to clinic for: Procedure: left [...] started. 1530 Midazolam 2mg IV given 1530 [id number] mcg IV given 1534 Midazolam 1mg IV given 1546 Midazolam 1mg IV given 1546 Rsmlmpau645 mcg IV given 1548 Fentanyl 100 mcg IV given bupivacaine 0.5%, 9mL given, 21mL wasted Kenalog 40mg/mL 1mL, 0 mL wasted 1555 abdominal scar trigger point completed. 1558 Fentanyl 50 mcg IV given 1601 Fentanyl 50 mcg IV given Trinity placed for Popliteal Nerve Block.. Placement verified [...] + +--------+ + + + | AZ INJECTION(S), | Routin | 12/27/2017 | Complex regional | | | ANESTHETIC AGENT(S) | e | 4:32 PM | pain syndrome type 1 | | | AND/OR STEROID; | | PST | of left lower | | | OTHER PERIPHERAL | | | extremity | | | NERVE OR BRANCH | | | | | + +--------+ + + + | AZ ROPIVACAINE HCL | Routin | 12/27/2017 | Complex regional | | | INJ 0.5% | e | 4:32 PM | pain syndrome type 1 | | | | | PST | of left lower | | | | | | extremity | | + +--------+ + + + | AZ MOD SEDATION | Routin | 12/27/2017 | Complex regional | | | >=5YRS SAME MD/QUAL | e | 4:32 PM | pain syndrome type 1 | | | PROV; INIT 15 MIN | | PST | of left lower | | | | | | extremity | | + +--------+ + + + documented in this encounter Results OPTICAL ENGINEERING MANAGER MISC PROCEDURE (12/27/2017 3:28 PM PST) [...]
--- OUTSIDE RECORDS SUMMARY | ~2020-03-23 | XMS | Encounter Summary ---
Demographics + + + | Address | [address] | | | [place] [address] | + + + | Home Phone [...] Team Providers + +------+ + | Care Validation Scientist Name | Role | Phone | [...] Rd | | | | | | [place], [place] | | | | | | [address] | | | +--------+ + + + [...]
--- OUTSIDE RECORDS SUMMARY | ~2020-03-23 | XMS | Encounter Summary ---
Demographics + + + | Address | [address] | | | [place] [address] | + + + | Home Phone [...] + +------+ + | Care Call Center Recruiter Name | Role | Phone | [...] | | | [address] Mailcode: | [place], [place] | | | | | [address] | [address] | | | | | Health and Healing, | [phone] | | | | | | | | | | | Floor [facility] [place] | | | | | | [address] | | | | | | [phone] | | | +--------+ + + + [...] Note | + + | Service Account, [employer] Res In Interface - 03/08/2018 9:42 AM [...]
--- OUTSIDE RECORDS SUMMARY | ~2020-03-23 | XMS | Clinical Summary ---
Demographics + + + | Address | [address] | | | [place] [address] | + + + | Home Phone [...] Organization | [facility] | [...] | [place] | | | | | [address] | | + + + + + | Bryant Farah | ECON | Unknown | | + + + + + Care Team Providers + +------+ + | Care Wet Sander Name | Role | Phone | [...] +--------+ +---------+--------+ | MEDICARE | MEDICA | [id number] | 07/15/20 | [phone] | | Medica | | | RE | | 15-Pre | 5 | | re | | | PART A | | sent | | | | | | AND B | | | | | | + +--------+ +--------+ +---------+--------+ | MEDICAID [place] | MEDICA | [id number] | | [phone] | | Medica | [...] | 1990 | [phone] | [place] [address] | | | evita | | | 6 (Home) | | + +--------+ +--------+ + +"
--- OUTSIDE RECORDS SUMMARY | ~2020-03-23 | XMS | Encounter Summary ---
Demographics + + + | Address | [address] | | | [place] [address] | + + + | Home Phone [...] Team Providers + +------+ + | Care Window And Door Installer Name | Role | Phone | + +------+ + | Justo Vazquez MD | PCP | | + +------+ + Encounter Details +--------+ + + + + | Date | Type | Department | Care Team | Description | +--------+ + + + + | 04/23/ | Pharmacy | [facility] | | | | 2019 | Visit | [facility] | | | | | | [address] | | | | | | Mailcode: [place] | | | | | | [facility] and | | | | | | Healing, [address] | | | | | | [place], [place] | | | | | | [address] | | | | | | [phone] | | | +--------+ + + + [...]
--- OUTSIDE RECORDS SUMMARY | ~2020-03-23 | XMS | Encounter Summary ---
Demographics + + + | Address | [address] | | | [place] [address] | + + + | Home Phone [...] Team Providers + +------+ + | Care Palliative Care Nurse Practitioner Name | Role | Phone [...] | | 2017 | anned | Services [id number] | | | | | | [address] | | | | | | Mailcode: OP17A | | | | | | [facility] | | | | | | [place], [place] | | | | | | [address] | | | | | | [phone] | | | +--------+ + + + [...]
--- OUTSIDE RECORDS SUMMARY | ~2020-03-23 | XMS | Encounter Summary ---
Demographics + + + | Address | [address] | | | [place] [address] | + + + | Home Phone [...] + +------+ + | Care Director Digital Marketing Name | Role | Phone | [...] | | | | | Procedures | [place], [place] | | | | | | MR | [id number] | | | | | | ENTEROGRAPHY [...] pain, | | 2017 | Visit | [place] [facility] [address] | | unspecified location | | | [address] | | (Primary Dx) | | | | Mailcode: [place] | | | | | | for Health and | | | | | | Healing, [address] | | | | | | [place], [place] | | | | | | [address] | | | | | | [phone] | | | +--------+---------+ + + + [...] heavy metal poisoning 2) MR enterography - [phone] to schedule 3) can increase miralax to 6 times per day Return to clinic in 3 months Please feel free to call our clinic with any questions. [phone] Kenny Gaspar MD Fellow, Division of Gastroenterology [...] n their attached note. Celia Lin MD Electrification Advisercommercial drone pilot Division of Gastroenterology & Hepatology [facility] Kenny Dodge Md - 2016 3:15 PM PST Gastroenterology Clinic Follow-Up Note 01/11/2017 CC/ID: Tracie Farah is a 26 F PMHx depression, complex regional pain syndrome(CRPS ) here for follow-up of n/v, abdominal pain INTERVAL HISTORY: Previously seen by Dr. Carbajal 08/10/16 - 10/2015 - hospitalized at [facility] for nausea/vomiting/pain -> [facility] -> CT A/P [...] oral recon soln Take as directed by [facility]- 2 gallon bowel prep 8000 [...]
--- OUTSIDE RECORDS SUMMARY | ~2020-03-23 | XMS | Encounter Summary ---
Demographics + + + | Address | [address] | | | [place] [address] | + + + | Home Phone [...] Team Providers + +------+ + | Care Trim Mounter Name | Role | Phone | + +------+ + | Justo Vazquez MD | PCP | | + +------+ + Encounter Details +--------+ + + + + | Date | Type | Department | Care Team | Description | +--------+ + + + + | 12/28/ | Telephone | [facility] | Ilene Bright, | | | 2019 | | Pain Center at | ASSOCIATE MUSIC PROFESSOR [address] | | | | | [facility] | [place], [place] | | | | | [address] | [address] | | | | | Mailcode: CH15P | [phone] | | | | | [facility] | | | | | | and Healing, | | | | | | | | | | | | Floor [place], [place] | | | | | | [address] | | | | | | [phone] | | | +--------+ + + + [...]
--- OUTSIDE RECORDS SUMMARY | ~2020-03-23 | XMS | Encounter Summary ---
Demographics + + + | Address | [address] | | | [place] [address] | + + + | Home Phone [...] Providers + +------+ + | Care Live Truck Operator Name | Role | Phone | [...] | | Complex | Alex Alba, | [facility] [address] | | | | | regional | ,PhD [address] | Pavilion | | | | | pain | [address] | | | | | syndrome | [address] | [address], | | | | | type 1 of | Rd | Basement | | | | | left lower | [place], [place] | [place], [place] | | | | | extremity | [address] | [address] | | | | | Muscle pain | Phone: | Phone: | | | | | Procedures | [phone] | [phone] | | | | | [place] BONE | Fax: | Fax: | | | | | &/OR JOINT | [phone] | [phone] | | | | | IMAGING | [...] | | | | | | | CT BONE | | | | | | | IMAGING, | | | | | | | LIMITED AREA | | | | | | | CT BONE | | | | | | [...] | | 2018 | Encounter | at [facility] [address] | ,PhD [address] [facility] | | | | | [address] | [address] | | | | | [address], | [place], [place] | | | | | [facility], | [address] | | | | | [place] [address] | [phone] | | | | | [phone] | | | +--------+ + + + [...]
--- OUTSIDE RECORDS SUMMARY | ~2020-03-23 | XMS | Encounter Summary ---
Demographics + + + | Address | [address] | | | [place] [address] | + + + | Home Phone | | + + + | Preferred Language | Unknown | + + + | Marital Status | Single | + + + | Amish Affiliation | 1073 | + + + | Race | Unknown | + + + | Ethnic Group | Unknown | + + + Author + + + | Author | [facility] | | | and [place] | + + + | Organization | [facility] | | | and [place] [...] [place] | | | | | [address] | | + + + + + | Bryant Farah | ERICKA | Unknown | | + + + + + Care Team Providers + +------+ + | Care Chute Man Name | Role | Phone | + +------+ + PCP | Unavailable | + +------+ + Encounter Details +--------+ + + + + | Date | Type | Department | Care Team | Description | +--------+ + + + + | 08/11/ | Hospital | [facility] | | | | 1998 | Encounter | MED CTR XRAY [address] | | | | | | [address] | | | | | | [place] [address] | | | | | | [phone] | | | +--------+ + + + [...]
--- OUTSIDE RECORDS SUMMARY | ~2020-03-23 | XMS | Encounter Summary ---
Demographics + + + | Address | [address] | | | [place] [address] | + + + | Home Phone | | + + + | Preferred Language | Unknown | + + + | Marital Status | Single | + + + | Moravian Affiliation | 1073 | + + + | Race | Unknown | + + + | Ethnic Group | Unknown | + + + Author + + + | Author | [facility] | | | and [place] | + + + | Organization | [facility] [...] [place] | | | | | [address] | | + + + + + | Bryant Farah | ECON | Unknown | | + + + + + Care Team Providers + +------+ + | Care Re Examiner Name | Role | Phone | + +------+ + PCP | Unavailable | + +------+ + Encounter Details +--------+ + + + + | Date | Type | Department | Care Team | Description | +--------+ + + + + | 06/22/ | Emergency | [facility] | Chung Portillo | Nondiabetic | | 2016 | | MEDICAL CENTER | [address] | gastroparesis | | | | EMERGENCY CENTER | [address] | | | | | [address] | [place], [place] | | | | | [place], [place] | [address] | | | | | [address] | [phone] | | | | | [phone] | | | +--------+ + + + [...] EXTERNAL | | | | performed at [facility];888 | K/uL | LAB | | | | [address];[place] | | | | | | [address] | | | | + + + + + + | Red Blood | 4.46Comment: Testing | 3.70 - 5.10 | EXTERNAL | | | Cells | performed at [facility];888 | M/uL | LAB | | | Counted | [address];[place] | | | | | | [address] | | | | + + + + + + | Hemoglobin | 13.9Comment: Testing | 11.3 - 15.5 | EXTERNAL | | | | performed at [facility];888 | g/dL | LAB | | | | [address];[place] | | | | | | [address] | | | | + + + + + + | Hematocrit, | 41.0Comment: Testing | 34.0 - 46.0 % | EXTERNAL | | | POC | performed at [facility];888 | | LAB | | | | [address];[place] | | | | | | [address] | | | | + + + + + + | MCV | 91.9Comment: Testing | 80.0 - 100.0 fl | EXTERNAL | | | | performed at [facility];888 | | LAB | | | | [address];[place] | | | | | | [address] | | | | + + + + + + | MCH | 31.1Comment: Testing | 27.0 - 34.0 pg | EXTERNAL | | | | performed at [facility];888 | | LAB | | | | [address];[place] | | | | | | [address] | | | | + + + + + + | MCHC | 33.9Comment: Testing | 32.0 - 35.5 | EXTERNAL | | | | performed at [facility];888 | g/dL | LAB | | | | [address];[place] | | | | | | [address] | | | | + + + + + + | RDW-CV | 40.3Comment: Testing | 37 - 53 fl | EXTERNAL | | | | performed at [facility];888 | | LAB | | | | [address];[place] | | | | | | [address] | | | | + + + + + + | Platelet | 203Comment: Testing | 150 - 400 K/uL | EXTERNAL | | | Count | performed at [facility];888 | | LAB | | | Plasma | [address];[place] | | | | | | [address] | | | | + + + + + + | MPV | 8.3Comment: Testing | fl | EXTERNAL | | | | performed at [facility];888 | | LAB | | | | [address];[place] | | | | | | [address] | | | | + + + + + + | Differentia | AUTOMATEDComment: | | EXTERNAL | | | l Type | Testing performed at | | LAB | | | | [facility];[address] | | | [address];[place] [address] | | | | + + + + + + | % Segmented | 65.86Comment: Testing | % | EXTERNAL | | | | performed at [facility];888 | | LAB | | | Neutrophils | [address];[place] | | | | | | [address] | | | | + + + + + + | % | 25.52Comment: Testing | % | EXTERNAL | | | Lymphocytes | performed at [facility];888 | | LAB | | | | [address];[place] | | | | | | [address] | | | | + + + + + + | % Monocytes | 6.38Comment: Testing | % | EXTERNAL | | | | performed at [facility];888 | | LAB | | | | [address];[place] | | | | | | [address] | | | | + + + + + + | % | 1.61Comment: Testing | % | EXTERNAL | | | Eosinophils | performed at [facility];888 | | LAB | | | | [address];[place] | | | | | | [address] | | | | + + + + + + | % Basophils | 0.63Comment: Testing | % | EXTERNAL | | | | performed at [facility];888 | | LAB | | | | [address];[place] | | | | | | [address] | | | | + + + + + + | Absolute | 6.91Comment: Testing | 1.90 - 7.40 | EXTERNAL | | | Segmented | performed at [facility];888 | K/uL | LAB | | | Neutrophils | [address];[place] | | | | | | [address] | | | | + + + + + + | Absolute | 2.68Comment: Testing | 1.00 - 3.90 | EXTERNAL | | | Lymphocytes | performed at [facility];888 | K/uL | LAB | | | | [address];[place] | | | | | | [address] | | | | + + + + + + | Absolute | 0.67Comment: Testing | 0.00 - 0.80 | EXTERNAL | | | Monocytes | performed at [facility];888 | K/uL | LAB | | | | [address];[place] | | | | | | [address] | | | | + + + + + + | Absolute | 0.17Comment: Testing | 0.00 - 0.50 | EXTERNAL | | | Eosinophils | performed at [facility];888 | K/uL | LAB | | | | [address];[place] | | | | | | [address] | | | | + + + + + + | Absolute | 0.07Comment: Testing | 0.00 - 0.10 | EXTERNAL | | | Basophils | performed at [facility];888 | K/uL | LAB | | | | [address];[place] | | | | | | [address] | | | | + + + [...] EXTERNAL | | | | performed at [facility] | | LAB | | | | [facility] | | | | | | [address] | | | | + + + [...] EXTERNAL | | | | performed at [facility] | | LAB | | | | [address];[place], [place] | | | | | | [address] | | | | + + + [...] LAB | | | | performed at [facility];888 | | | | | | [address];[place] | | | | | | [address] | | | | + + + [...] EXTERNAL | | | | performed at [facility];888 | | LAB | | | | [address];[place] | | | | | | [address] | | | | + + + [...] EXTERNAL | | | | performed at [facility];888 | mmol/L | LAB | | | | [address];[place] | | | | | | [address] | | | | + + + [...] EXTERNAL | | | | performed at [facility];888 | | LAB | | | | [address];[place], [place] | | | | | | [address] | | | | + + + [...] EXTERNAL | | | | performed at [facility];888 | mmol/L | LAB | | | | [address];[place] | | | | | | [address] | | | | + + + + + + | K | 3.8Comment: Testing | 3.5 - 4.9 | EXTERNAL | | | | performed at [facility];888 | mmol/L | LAB | | | | [address];[place] | | | | | | [address] | | | | + + + + + + | Cl | 104Comment: Testing | 99 - 109 mmol/L | EXTERNAL | | | | performed at [facility];888 | | LAB | | | | [address];[place] | | | | | | [address] | | | | + + + + + + | CO2 | 27Comment: Testing | 23 - 32 mmol/L | EXTERNAL | | | | performed at [facility];888 | | LAB | | | | [address];[place] | | | | | | [address] | | | | + + + + + + | Anion Gap | 12Comment: Testing | 5 - 20 mmol/L | EXTERNAL | | | | performed at [facility];888 | | LAB | | | | [address];[place] | | | | | | [address] | | | | + + + + + + | Glucose, | 80Comment: Testing | 65 - 99 mg/dL | EXTERNAL | | | Fasting | performed at [facility];888 | | LAB | | | | [address];[place] | | | | | | [address] | | | | + + + + + + | BUN | 4 (L)Comment: Testing | 8 - 25 mg/dL | EXTERNAL | | | | performed at [facility];888 | | LAB | | | | [address];[place] | | | | | | [address] | | | | + + + + + + | Creatinine | 0.83Comment: Testing | 0.50 - 1.00 | EXTERNAL | | | | performed at [facility];888 | mg/dL | LAB | | | | [address];[place] | | | | | | [address] | | | | + + + + + + | BUN/Creatin | 5Comment: Testing | | EXTERNAL | | | ine Ratio | performed at [facility];888 | | LAB | | | | [address];[place] | | | | | | [address] | | | | + + + + + + | Calcium | 9.1Comment: Testing | 8.5 - 10.5 | EXTERNAL | | | | performed at [facility];888 | mg/dL | LAB | | | | [address];[place] | | | | | | [address] | | | | + + + + + + | Protein, | 7.4Comment: Testing | 6.3 - 8.2 g/dL | EXTERNAL | | | Total | performed at [facility];888 | | LAB | | | | [address];[place] | | | | | | [address] | | | | + + + + + + | Albumin | 4.5Comment: Testing | 3.6 - 5.0 g/dL | EXTERNAL | | | | performed at [facility];888 | | LAB | | | | [address];[place] | | | | | | [address] | | | | + + + + + + | Globulin | 3.0Comment: Testing | 1.3 - 4.9 g/dL | EXTERNAL | | | | performed at [facility];888 | | LAB | | | | [address];[place] | | | | | | [address] | | | | + + + + + + | A/G Ratio | 1.5Comment: Testing | 1.0 - 2.4 | EXTERNAL | | | | performed at [facility];888 | | LAB | | | | [address];[place] | | | | | | [address] | | | | + + + + + + | Bilirubin | 0.6Comment: Testing | 0.1 - 1.5 mg/dL | EXTERNAL | | | Total | performed at [facility];888 | | LAB | | | | [address];[place] | | | | | | [address] | | | | + + + + + + | ALP, | 61Comment: Testing | 35 - 115 U/L | EXTERNAL | | | External | performed at [facility];888 | | LAB | | | | [address];[place] | | | | | | [address] | | | | + + + + + + | AST | 7 (L)Comment: Testing | 10 - 45 U/L | EXTERNAL | | | | performed at [facility];888 | | LAB | | | | [address];[place] | | | | | | [address] | | | | + + + + + + | ALT | 20Comment: Testing | 10 - 65 U/L | EXTERNAL | | | | performed at [facility];888 | | LAB | | | | [address];[place] | | | | | | [address] | | | | + + + [...] | | | | | | at [facility];[address] | | | | | | [address];[place] [address] | | | | + + + [...] EXTERNAL | | | | performed at [facility];888 | | LAB | | | | [address];[place] | | | | | | [address] | | | | + + + + + + | Clarity | CLEARComment: Testing | | EXTERNAL | | | | performed at [facility];888 | | LAB | | | | [address];[place] | | | | | | [address] | | | | + + + + + + | Specific | 1.005Comment: Testing | 1.002 - 1.030 | EXTERNAL | | | [place], | performed at [facility];888 | | LAB | | | Urine | [address];[place] | | | | | | [address] | | | | + + + + + + | Leukocyte | NEGATIVEComment: Testing | | EXTERNAL | | | Esterase, | performed at [facility];888 | | LAB | | | Urine | [address];[place] | | | | | | [address] | | | | + + + + + + | Nitrite, | NEGATIVEComment: Testing | | EXTERNAL | | | Urine | performed at [facility];888 | | LAB | | | | [address];[place] | | | | | | [address] | | | | + + + + + + | Urobilinoge | NORMALComment: Testing | mg/dL | EXTERNAL | | | n, Urine | performed at [facility];888 | | LAB | | | | [address];[place] | | | | | | [address] | | | | + + + + + + | Protein, | NEGATIVEComment: Testing | mg/dL | EXTERNAL | | | Urine | performed at [facility];888 | | LAB | | | | [address];[place] | | | | | | [address] | | | | + + + + + + | pH, Urine | 7.0Comment: Testing | 5.0 - 8.0 | EXTERNAL | | | | performed at [facility];888 | | LAB | | | | [address];[place] | | | | | | [address] | | | | + + + + + + | Blood, | NEGATIVEComment: Testing | | EXTERNAL | | | Urine | performed at [facility];888 | | LAB | | | | [address];[place] | | | | | | [address] | | | | + + + + + + | Ketones | NEGATIVEComment: Testing | mg/dL | EXTERNAL | | | | performed at [facility];888 | | LAB | | | | [address];[place] | | | | | | [address] | | | | + + + + + + | Bilirubin, | NEGATIVEComment: Testing | | EXTERNAL | | | Urine | performed at [facility];888 | | LAB | | | | [address];[place] | | | | | | [address] | | | | + + + + + + | Glucose, | NEGATIVEComment: Testing | mg/dL | EXTERNAL | | | Urine | performed at [facility];888 | | LAB | | | | [address];[place], [place] | | | | | | [address] | | | | + + + [...] | | | Ur | performed at [facility] | | LAB | | | | [address];[place], [place] | | | | | | [address] | | | | + + + [...]
--- OUTSIDE RECORDS SUMMARY | ~2020-03-23 | XMS | Encounter Summary ---
Demographics + + + | Address | [address] | | | [place] [address] | + + + | Home Phone [...] Providers + +------+ + | Care Physical Trainer Name | Role | Phone | [...] at | ,PhD [address] | Request (ketamine- | | | | [facility] | [address] | mail script to | | | | [address] | [place], [place] | patient) | | | | Mailcode: [id number] | [phone] | | | | | [facility] | [phone] | | | | | and [place], | | | | | | | | | | | | [place], [place] | | | | | | [address] | | | | | | [phone] | | | +--------+ + + + [...]
--- OUTSIDE RECORDS SUMMARY | ~2020-03-23 | XMS | Encounter Summary ---
Demographics + + + | Address | [address] | | | [place] [address] | + + + | Home Phone [...] Team Providers + +------+ + | Care Client Sales And Service Officer Name | Role | Phone | [...] | | Pain Center at | ,PhD [address] [facility] | sig) | | | | [facility] | [facility] | | | | | [address] | [facility] [place] | | | | | Mailcode: [id number] | [phone] | | | | | [facility] | [phone] | | | | | and [place], | | | | | | Building | | | | | | [place], [place] | | | | | | [address] | | | | | | [phone] | | | +--------+ + + + [...]
--- OUTSIDE RECORDS SUMMARY | ~2020-03-23 | XMS | Encounter Summary ---
Demographics + + + | Address | [address] | | | [place] [address] | + + + | Home Phone [...] Providers + +------+ + | Care Learning And Development Director Name | Role | Phone | + +------+ + | Justo Vazquez MD | PCP | | + +------+ + Encounter Details +--------+------+ + + + | Date | Type | Department | Care Team | Description | +--------+------+ + + + | 12/14/ | Lab | Laboratory at [facility] | | Complex regional | | 2018 | | [address] | | pain syndrome type 1 | | | | [place], [place] | | of left lower | | | | [address] | | extremity; Muscle | | | | [phone] | | pain | +--------+------+ + + [...] | + + + + + | [facility] | [address] [facility] | [place] [address] | | | SERVICES, LILLIAN | GUILLERMO [...]
--- OUTSIDE RECORDS SUMMARY | ~2020-03-23 | XMS | Encounter Summary ---
Demographics + + + | Address | [address] | | | [place] [address] | + + + | Home Phone [...] Providers + +------+ + | Care Inventory Associate Name | Role | Phone | [...] + | 06/07/ | Telephone | [facility] Ilene | [place] Bright, | Care Coordination | | 2016 | | Pain Center at | SENIOR STRATEGY MANAGER [address] | | | | | [facility] | [place], [place] | | | | | [address] | [address] | | | | | Mailcode: [id number] | [phone] | | | | | [facility] | | | | | | and Healing, | | | | | | Building | | | | | | Floor [facility] [place] | | | | | | [address] | | | | | | [phone] | | | +--------+ + + + [...]
--- OUTSIDE RECORDS SUMMARY | ~2020-03-23 | XMS | Encounter Summary ---
Demographics + + + | Address | [address] | | | [place] [address] | + + + | Home Phone [...] Team Providers + +------+ + | Care Campus Executive Director Name | Role | Phone [...] | | | sympathetic | [place] | [address]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 | FAMILY | Mailstop | | | | | of lower | MEDICINE P | [id number] | | | | | limb | [address] | [place], [place] | | | | | | [place], | [address] | | | | | | [place] [address] | Phone: | | | | | | Phone: | [phone] | | | | | | [phone] | Fax: | | | | | | Fax: | [phone] | | | | | | [phone] | | +--------+--------+ + + + + Encounter Details +--------+---------+ + + + | Date | Type | Department | Care Team | Description | +--------+---------+ + + + | 08/04/ | Office | [facility] | Dale Cantu, | CRPS (complex | | 2011 | Visit | Pain Center at | MD [address] [facility] | regional pain | | | | [facility] | [facility] [id number] | syndrome), lower | | | | [address] | [place], [place] | limb (Primary Dx) | | | | Mailcode: CH15P | [phone] | | | | | [facility] | [phone] | | | | | and Healing, | | | | | | Building | | | | | | Floor [place], [place] | | | | | | [address] | | | | | | [phone] | | | +--------+---------+ + + + [...] evaluated the patient with Fellow Nhan Guo [facility], who conducted the initial history. I reviewed the history in det ail and edited his note. I was present for the examination and formulation portions of the encounter. I agree with the findings and the plan of care as documented in our notes. DALE CANTU MD Manager Transfer, [facility] Skin Care Technician, Pain Medicine Professor, Anesthesiology & Perioperative [...] physical activity and social withdrawal enok Gutierrez, [facility] - 08/04/2012 7:25 AM PDTFormatting of this note might be different from the [facility] Return Visit with Dr. [...] has been treated at the [facility] for lower limb pain with the [...] and a pain drawing which I reviewed. [facility] Brief Pain Inventory: (ten= worst [...] The Review of Systems obtained by the [facility] was reviewed. Additional Review of Systems: 1. [...] multiple programs with both [facility] and [facility] programs, however it appears that it does [...] bath today, OK to shower. HENOK GUO, [facility]ENS[facility] documented in this en counter Plan of Treatment Not on filedocumented as of this encounter Visit Diagnoses + + | Diagnosis | + + | CRPS (complex regional pain syndrome), lower limb - Primary Causalgia of lower limb | + + documented in this encounter
--- OUTSIDE RECORDS SUMMARY | ~2020-03-23 | XMS | Encounter Summary ---
Demographics + + + | Address | [address] | | | [place] [address] | + + + | Home Phone [...] Providers + +------+ + | Care Educational Administrator Name | Role | Phone | + +------+ + | Justo Vazquez MD | PCP | | + +------+ + Encounter Details +--------+ + + + + | Date | Type | Department | Care Team | Description | +--------+ + + + + | 12/02/ | Document-Sc | Health Information | Unknown . | | | 2017 | anned | Services [phone] | | | | | [address] | | | | | | Mailcode: [id number] | | | | | | [facility] | | | | | | [place], [place] | | | | | | [address] | | | | | | [phone] | | | +--------+ + + + [...]
--- OUTSIDE RECORDS SUMMARY | ~2020-03-23 | XMS | Encounter Summary ---
Demographics + + + | Address | [address] | | | [place] [address] | + + + | Home Phone [...] Providers + +------+ + | Care Supervisor Telephone Information Name | Role | Phone | + [...] + | 12/05/ | Surgery | [facility] | Alex Sanchez, | BILATERAL DORSAL | | 2019 | | [facility] | ,PhD [address] [facility] | ROOT GANGLION SPINAL | | | | and Healing Surgery | [address] | CORD STIMULATOR | | | | Center Admitting | [place], [place] | IMPLANT LUMBAR; | | | | Desk Located on the | [address] | POSTERIOR | | | | 4th floor [address] | [phone] | | | | | [address] [place], | | | | | | [place] [address] | | | +--------+---------+ + + + [...] s/p successful DRG trial lead system with Exo Protein Bars System on 09/25/2018. No changes in H&P, [...] NOTE Date: December 05, 2018 Location: [facility] [place] | | | Tracie Farah [id number] :1990, presents to clinic | | | for: Dorsal root ganglion stimulator implant PROCEDURE: Dorsal | | | root ganglion stimulator implant PRE-OPERATIVE DIAGNOSIS: Complex | | | regional Pain syndrome type 1 of left lower extremity | | | POST-OPERATIVE DIAGNOSIS: Complex regional Pain syndrome type 1 of | | | left lower extremity ATTENDING PHYSICIAN: Alex Sanchez | | | CASTING MACHINE OPERATOR AUTOMATIC: Arben Valerio MD ANESTHESIA: sedation by IVIS Cole | | | Carmen, supervised by strategic planning specialist Ilir Valdes. | | | FINDINGS: [...] Ms. Farah was escorted to the [facility] | | | [place], [...] to the | | | [facility] registered representative. A test stimulation was performed and [...] recovery. Images were saved, and sent to liveBooks. | | | Alex Sanchez (attending) was present for the entire procedure. | | | Arben Valerio MD I was present for the entire procedure | | | (spinal cord stimulator implantation with DRG leads at left L4 and | | | L5) and all bocanegra elements of this visit. I reviewed the | | | documentation of the other [employer] providers and concur with | | | Iman's findings. I edited his note. Alex Sanchez, | | | ,PhD Dialysis Chief Equipment Technician Anesthesiology and Pain Management | | | [facility] | | + [...] + | JOSE ANTONIO MIN | [address] [facility] [address] | [place] [address] | | | OF CARE TESTS | [...]
--- OUTSIDE RECORDS SUMMARY | ~2020-03-23 | XMS | Encounter Summary ---
Demographics + + + | Address | [address] | | | [place] [address] | + + + | Home Phone [...] Team Providers + +------+ + | Care Shift Production Associate Name | Role | Phone | [...] + + | 02/21/ | Telephone | [facility] | Alex Sanchez, | Medication Refill | | 2018 | | Pain Center at | ,PhD [address] | Request (ketamine- | | | | [facility] | [address] | mail script to | | | | [address] | [place], [place] | patient) | | | | Mailcode: [id number] | [phone] | | | | | [facility] | [phone] | | | | | and [address], | | | | | | | | | | | | [place], [place] | | | | | | [address] | | | | | | [phone] | | | +--------+ + + + [...]
--- OUTSIDE RECORDS SUMMARY | ~2020-03-23 | XMS | Clinical Summary ---
Demographics + + + | Address | [address] | | | [place] [address] | + + + | Home Phone [...] | Author | [facility] | + + + | Organization | [facility] | + + + | Address | Unknown | + + + | Phone | Unavailable | + + + Support + + +---------+ + | Name | Relationship | Address | Phone | + + +---------+ + | Patricia Colin | ECON | Unknown | | + + +---------+ + Care Team Providers + +------+ + | Care Test Manager Name | Role | Phone | + +------+ + | Justo Vazquez MD | PCP | | + +------+ + Source Comments KEVIN is fully live on both [facility] Ambulatory and [facility] InPatient.[facility] Allergies + + + [...] + | Overview: Patient has an implanted [employer] spinal | | cord stimulator. Model#: [id number]. Contact [phone] for | | technical assistance.Contraindications:Sources of strong [...] | Right: | BARD | | | [id number] | | Port-10/05/2016Implanted: | | Chest | | | | 0 / | | 10/05/2016 by Obdulio Simpson, | | | | | | /VIKY | | (Quantity not on file) | | | | | | 204 | + +------+--------+ +--------+--------+--------+ + + | Description:Not Power | | Injectable, Progress record | | faxed from [facility] | | Hospital in [place], [place], | | [facility] RN | + + + +---+---+ +---+--------+--------+ | Slimtip DrgImplanted: Qty: 1 | | | [facility] | | 01/06/ | [id number] | | on 12/05/2018 by Daniel, | | | MEDICAL [place] | | 2020 | 0-50A | | Alex Alba MD,PhD at [facility] | | | | | | /[id number] | | INPATIENT REV LOC | | | | | | 371 / | + +---+---+ +---+--------+--------+ + + | Description:Level 4 | + + + +---+---+ +---+---+--------+ | Slimtip DrgImplanted: Qty: 1 | | | [facility] | | | [id number] | | on 12/05/2018 by Daniel, | | | MEDICAL [place] | | | 0-50A | | Alex Alba MD,PhD at [facility] | | | | | | /[id number] | | INPATIENT REV LOC | | [...] | | | | | | | [address] | | + +--------+ +--------+ + +--------+ | [employer] MEDICAID | SP[employer]TS [employer]IRE | xxxxxxxx | 11/14/19 | | | [...] | 1990 | [phone] | [place] [address] | | | evita | | | [...]
--- OUTSIDE RECORDS SUMMARY | ~2020-03-23 | XMS | Encounter Summary ---
Demographics + + + | Address | [address] | | | [place] [address] | + + + | Home Phone [...] Team Providers + +------+ + | Care Rotating Equipment Specialist Name | Role | Phone | [...] [address] | | | | | | [place], [place] | | | | | | [address] | | | +--------+ + + + [...]
--- OUTSIDE RECORDS SUMMARY | ~2020-03-23 | XMS | Encounter Summary ---
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 | regional pain | | | | [facility] | [facility] [id number] | syndrome), lower | | | | [address] | [place], [place] | limb; Gait | | | | Mailcode: CH15P | [phone] | disturbance; Sleep | | | | [facility] | [phone] | disturbance, | | | | and Healing, | | unspecified; | | | | | | Adjustment reaction | | | | Floor [place], [place] | | | | | | [address] | | | | | | [phone] | | | +--------+---------+ + + + [...] CRPS patients (Loretta Rousseau, et al. Katrina Hydrator Operator Med. 2010;152:152-158) . Bisphosphonate trial. Typically, I [...] Cantu MD - 09/04/2012 7:45 AM PDT [facility] Comprehensive Pain Center Return Visit [...] cord stimulator trial last month with [facility] [employer] equipment wit h no benefit to [...] Hemroidectomy Trial spinal cord stimulator leads 08/02/2012 [facility], Surgeon: Dale Cantu MD [...] by the [facility] was reviewed. Additional Review of Systems commen [...] of Pain: 13(1):17-21, 2008). DALE CANTU MD Hand Picker, [facility] Diversity Specialist, Pain Medicine Professor, Anesthesiology & Perioperative [...]
--- OUTSIDE RECORDS SUMMARY | ~2020-03-23 | XMS | Encounter Summary ---
Demographics + + + | Address | [address] | | | [place] [address] | + + + | Home Phone [...] Team Providers + +------+ + | Care Burr Sander Name | Role | Phone | [...] (plan of care) | | | | [facility] | [address] | | | | | [address] | [place], [place] | | | | | Mailcode: CH15P | [phone] | | | | | [facility] | [phone] | | | | | and Healing, | | | | | | Building | | | | | | [place], [place] | | | | | | [address] | | | | | | [phone] | | | +--------+ + + + [...]
--- OUTSIDE RECORDS SUMMARY | ~2020-03-23 | XMS | Encounter Summary ---
Demographics + + + | Address | [address] | | | [place] [address] | + + + | Home Phone | | + + + | Preferred Language | Unknown | + + + | Marital Status | Single | + + + | Mu-Ism Affiliation | [id number] | + + + | Race | Unknown | + + + | Ethnic Group | Unknown | + + + Author + + + | Author | [facility] | | | and [place] | + + + | Organization | [facility] | | | and [...] [place] | | | | | [address] | | + + + + + | Bryant Farah | ECON | Unknown | | + + + + + Care Team Providers + +------+ + | Care Materials Management Supervisor Name | Role | Phone | + +------+ + PCP | Unavailable | + +------+ + Encounter Details +--------+ + + + + | Date | Type | Department | Care Team | Description | +--------+ + + + + | 06/22/ | Emergency | [facility] | Chung Portillo | Nondiabetic | | 2016 | | MEDICAL CENTER | [address] | gastroparesis | | | | EMERGENCY CENTER | [address] | | | | | [address] | [place], [place] | | | | | [place], [place] | [address] | | | | | [address] | [phone] | | | | | [phone] | | | +--------+ + + + [...] EXTERNAL | | | | performed at [facility] [place];888 | K/uL | LAB | | | | [address];[place] | | | | | | [address] | | | | + + + + + + | Red Blood | 4.46Comment: Testing | 3.70 - 5.10 | EXTERNAL | | | Cells | performed at [facility] [place] [place];888 | M/uL | LAB | | | Counted | [address];[place] | | | | | | [address] | | | | + + + + + + | Hemoglobin | 13.9Comment: Testing | 11.3 - 15.5 | EXTERNAL | | | | performed at [facility] [place];888 | g/dL | LAB | | | | [address];[place] | | | | | | [address] | | | | + + + + + + | Hematocrit, | 41.0Comment: Testing | 34.0 - 46.0 % | EXTERNAL | | | POC | performed at [facility] [place] [place];[address] | | LAB | | | | [address];[place] | | | | | | [address] | | | | + + + + + + | MCV | 91.9Comment: Testing | 80.0 - 100.0 fl | EXTERNAL | | | | performed at [facility] [place] [place];[address] | | LAB | | | | [address];[place] | | | | | | [address] | | | | + + + + + + | MCH | 31.1Comment: Testing | 27.0 - 34.0 pg | EXTERNAL | | | | performed at [facility] [place] [place];[address] | | LAB | | | | [address];[place] | | | | | | [address] | | | | + + + + + + | MCHC | 33.9Comment: Testing | 32.0 - 35.5 | EXTERNAL | | | | performed at [facility] [place] [place];888 | g/dL | LAB | | | | [address];[place] | | | | | | [address] | | | | + + + + + + | RDW-CV | 40.3Comment: Testing | 37 - 53 fl | EXTERNAL | | | | performed at [facility] [place] [place];[address] | | LAB | | | | [address];[place] | | | | | | [address] | | | | + + + + + + | Platelet | 203Comment: Testing | 150 - 400 K/uL | EXTERNAL | | | Count | performed at [facility] [place] [place];888 | | LAB | | | Plasma | [address];[place] | | | | | | [address] | | | | + + + + + + | MPV | 8.3Comment: Testing | fl | EXTERNAL | | | | performed at [facility] [place] [place];[address] | | LAB | | | | [address];[place] | | | | | | [address] | | | | + + + + + + | Differentia | AUTOMATEDComment: | | EXTERNAL | | | l Type | Testing performed at | | LAB | | | | [facility] [place];[address] | | [address];[place] [address] | | | | + + + + + + | % Segmented | 65.86Comment: Testing | % | EXTERNAL | | | | performed at [facility] [place] [place];888 | | LAB | | | Neutrophils | [address];[place] | | | | | | [address] | | | | + + + + + + | % | 25.52Comment: Testing | % | EXTERNAL | | | Lymphocytes | performed at [facility] [place];[address] | | LAB | | | | [address];[place] | | | | | | [address] | | | | + + + + + + | % Monocytes | 6.38Comment: Testing | % | EXTERNAL | | | | performed at [facility] [place] [place];888 | | LAB | | | | [address];[place] | | | | | | [address] | | | | + + + + + + | % | 1.61Comment: Testing | % | EXTERNAL | | | Eosinophils | performed at [facility] [place];[address] | | LAB | | | | [address];[place] | | | | | | [address] | | | | + + + + + + | % Basophils | 0.63Comment: Testing | % | EXTERNAL | | | | performed at [facility] [place] [place];[address] | | LAB | | | | [address];[place] | | | | | | [address] | | | | + + + + + + | Absolute | 6.91Comment: Testing | 1.90 - 7.40 | EXTERNAL | | | Segmented | performed at [facility] [place] [place];888 | K/uL | LAB | | | Neutrophils | [address];[place] | | | | | | [address] | | | | + + + + + + | Absolute | 2.68Comment: Testing | 1.00 - 3.90 | EXTERNAL | | | Lymphocytes | performed at [facility] [place] [place];888 | K/uL | LAB | | | | [address];[place] | | | | | | [address] | | | | + + + + + + | Absolute | 0.67Comment: Testing | 0.00 - 0.80 | EXTERNAL | | | Monocytes | performed at [facility] [place];888 | K/uL | LAB | | | | [address];[place] | | | | | | [address] | | | | + + + + + + | Absolute | 0.17Comment: Testing | 0.00 - 0.50 | EXTERNAL | | | Eosinophils | performed at [facility] [place] [place];888 | K/uL | LAB | | | | [address];[place] | | | | | | [address] | | | | + + + + + + | Absolute | 0.07Comment: Testing | 0.00 - 0.10 | EXTERNAL | | | Basophils | performed at [facility] [place];888 | K/uL | LAB | | | | [address];[place] | | | | | | [address] | | | | + + + [...] EXTERNAL | | | | performed at [facility] [place] [place];[facility] | | LAB | | | | [facility] | | | | | | [address] | | | | + + + [...] EXTERNAL | | | | performed at [facility] [place];[facility] | | LAB | | | | [address];[place], [place] | | | | | | [address] | | | | + + + [...] LAB | | | | performed at [facility] [place];[address] | | | | | | [address];[place] | | | | | | [address] | | | | + + + [...] EXTERNAL | | | | performed at [facility] [place] [place];888 | | LAB | | | | [address];[place] | | | | | | [address] | | | | + + + [...] EXTERNAL | | | | performed at [facility] [place];888 | mmol/L | LAB | | | | [address];[place] | | | | | | [address] | | | | + + + [...] EXTERNAL | | | | performed at [facility] [place] [place];888 | | LAB | | | | [address];[place], [place] | | | | | | [address] | | | | + + + [...] EXTERNAL | | | | performed at [facility] [place] [place];888 | mmol/L | LAB | | | | [address];[place] | | | | | | [address] | | | | + + + + + + | K | 3.8Comment: Testing | 3.5 - 4.9 | EXTERNAL | | | | performed at [facility] [place] [place];888 | mmol/L | LAB | | | | [address];[place] | | | | | | [address] | | | | + + + + + + | Cl | 104Comment: Testing | 99 - 109 mmol/L | EXTERNAL | | | | performed at [facility] [place] [place];[address] | | LAB | | | | [address];[place] | | | | | | [address] | | | | + + + + + + | CO2 | 27Comment: Testing | 23 - 32 mmol/L | EXTERNAL | | | | performed at [facility] [place] [place];[address] | | LAB | | | | [address];[place] | | | | | | [address] | | | | + + + + + + | Anion Gap | 12Comment: Testing | 5 - 20 mmol/L | EXTERNAL | | | | performed at [facility] [place] [place];[address] | | LAB | | | | [address];[place] | | | | | | [address] | | | | + + + + + + | Glucose, | 80Comment: Testing | 65 - 99 mg/dL | EXTERNAL | | | Fasting | performed at [facility] [place] [place];[address] | | LAB | | | | [address];[place] | | | | | | [address] | | | | + + + + + + | BUN | 4 (L)Comment: Testing | 8 - 25 mg/dL | EXTERNAL | | | | performed at [facility] [place] [place];[address] | | LAB | | | | [address];[place] | | | | | | [address] | | | | + + + + + + | Creatinine | 0.83Comment: Testing | 0.50 - 1.00 | EXTERNAL | | | | performed at [facility] [place] [place];888 | mg/dL | LAB | | | | [address];[place] | | | | | | [address] | | | | + + + + + + | BUN/Creatin | 5Comment: Testing | | EXTERNAL | | | ine Ratio | performed at [facility] [place] [place];[address] | | LAB | | | | [address];[place] | | | | | | [address] | | | | + + + + + + | Calcium | 9.1Comment: Testing | 8.5 - 10.5 | EXTERNAL | | | | performed at [facility] [place] [place];888 | mg/dL | LAB | | | | [address];[place] | | | | | | [address] | | | | + + + + + + | Protein, | 7.4Comment: Testing | 6.3 - 8.2 g/dL | EXTERNAL | | | Total | performed at [facility] [place] [place];888 | | LAB | | | | [address];[place] | | | | | | [address] | | | | + + + + + + | Albumin | 4.5Comment: Testing | 3.6 - 5.0 g/dL | EXTERNAL | | | | performed at [facility] [place] [place];[address] | | LAB | | | | [address];[place] | | | | | | [address] | | | | + + + + + + | Globulin | 3.0Comment: Testing | 1.3 - 4.9 g/dL | EXTERNAL | | | | performed at [facility] [place] [place];[address] | | LAB | | | | [address];[place] | | | | | | [address] | | | | + + + + + + | A/G Ratio | 1.5Comment: Testing | 1.0 - 2.4 | EXTERNAL | | | | performed at [facility] [place] [place];[address] | | LAB | | | | [address];[place] | | | | | | [address] | | | | + + + + + + | Bilirubin | 0.6Comment: Testing | 0.1 - 1.5 mg/dL | EXTERNAL | | | Total | performed at [facility] [place] [place];888 | | LAB | | | | [address];[place] | | | | | | [address] | | | | + + + + + + | ALP, | 61Comment: Testing | 35 - 115 U/L | EXTERNAL | | | External | performed at [facility] [place] [place];[address] | | LAB | | | | [address];[place] | | | | | | [address] | | | | + + + + + + | AST | 7 (L)Comment: Testing | 10 - 45 U/L | EXTERNAL | | | | performed at [facility] [place] [place];888 | | LAB | | | | [address];[place] | | | | | | [address] | | | | + + + + + + | ALT | 20Comment: Testing | 10 - 65 U/L | EXTERNAL | | | | performed at [facility] [place] [place];888 | | LAB | | | | [address];[place] | | | | | | [address] | | | | + + + [...] | | | | | | at [facility] [place] [place];[address] | | | | | | [address];[place] [address] | | | | + + + [...] EXTERNAL | | | | performed at [facility] [place] [place];[address] | | LAB | | | | [address];[place] | | | | | | [address] | | | | + + + + + + | Clarity | CLEARComment: Testing | | EXTERNAL | | | | performed at [facility] [place] [place];[address] | | LAB | | | | [address];[place] | | | | | | [address] | | | | + + + + + + | Specific | 1.005Comment: Testing | 1.002 - 1.030 | EXTERNAL | | | [place], | performed at [facility] [place] [place];888 | | LAB | | | Urine | [address];[place] | | | | | | [address] | | | | + + + + + + | Leukocyte | NEGATIVEComment: Testing | | EXTERNAL | | | Esterase, | performed at [facility] [place] [place];888 | | LAB | | | Urine | [address];[place] | | | | | | [address] | | | | + + + + + + | Nitrite, | NEGATIVEComment: Testing | | EXTERNAL | | | Urine | performed at [facility] [place] [place];888 | | LAB | | | | [address];[place] | | | | | | [address] | | | | + + + + + + | Urobilinoge | NORMALComment: Testing | mg/dL | EXTERNAL | | | n, Urine | performed at [facility] [place] [place];888 | | LAB | | | | [address];[place] | | | | | | [address] | | | | + + + + + + | Protein, | NEGATIVEComment: Testing | mg/dL | EXTERNAL | | | Urine | performed at [facility] [place] [place];888 | | LAB | | | | [address];[place] | | | | | | [address] | | | | + + + + + + | pH, Urine | 7.0Comment: Testing | 5.0 - 8.0 | EXTERNAL | | | | performed at [facility] [place] [place];[address] | | LAB | | | | [address];[place] | | | | | | [address] | | | | + + + + + + | Blood, | NEGATIVEComment: Testing | | EXTERNAL | | | Urine | performed at [facility] [place] [place];[address] | | LAB | | | | [address];[place] | | | | | | [address] | | | | + + + + + + | Ketones | NEGATIVEComment: Testing | mg/dL | EXTERNAL | | | | performed at [facility] [place] [place];[address] | | LAB | | | | [address];[place] | | | | | | [address] | | | | + + + + + + | Bilirubin, | NEGATIVEComment: Testing | | EXTERNAL | | | Urine | performed at [facility] [place] [place];[address] | | LAB | | | | [address];[place] | | | | | | [address] | | | | + + + + + + | Glucose, | NEGATIVEComment: Testing | mg/dL | EXTERNAL | | | Urine | performed at [facility] [place] [place];[address] | | LAB | | | | [address];[place], [place] | | | | | | [address] | | | | + + + [...] | | | Ur | performed at [facility] [place] [place];[facility] | | LAB | | | | [address];[place], [place] | | | | | | [address] | | | | + + + [...]
--- OUTSIDE RECORDS SUMMARY | ~2020-03-23 | XMS | Encounter Summary ---
Demographics + + + | Address | [address] | | | [place] [address] | + + + | Home Phone [...] Team Providers + +------+ + | Care Agile Developer Name | Role | Phone | [...] | | | | | extremity | [phone] | [phone] | | | | | Procedures | Phone: | Phone: | | | | | REQUEST TO | [phone] | [phone] | | | | | SURGERY | Fax: | Fax: | | | | | CLINICAL DATA ASSOCIATE | [phone] | [phone] | +--------+---------+ + + + + Encounter Details +--------+---------+ + + + | Date | Type | Department | Care Team | Description | +--------+---------+ + + + | 12/22/ | Office | [facility] Comprehensive | Ilene Bright, | Complex regional | | 2019 | Visit | Pain Center at | NET FRONT END DEVELOPER [address] | pain syndrome type 1 | | | | [facility] | [place], [place] | of left lower | | | | [address] | [address] | extremity; S/P | | | | Mailcode: [id number] | [phone] | insertion of spinal | | | | [place] for [facility] | | cord stimulator | | | | and Healing, | | | | | | Building , | | | | | | Floor [place], [place] | | | | | | [address] | | | | | | [phone] | | | +--------+---------+ + + + [...] marjorie cobian your reference. - The [place] international account representative met with you and made adjustments to your stimulator. I spoke w ith the international account representative and she is happy with your [...] call this prescription into the [facility] in [place]. It was great to see you again, documented in this encounter Progress Notes Ilene Bright, TERESA - 12/22/2018 11:00 AM PSTFormatting of this note might be different fr om the original. 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 Goes to [employer] with a light load. Has been working at [employer] can' t work on [employer]. Has roommates. Allergies Allergen Reactions Morphine Anaphylaxis [...] by [facility] Digestive Health- 2 gallon bowel prep [...] with nausea Abdominal pain Abdominal scar neuroma [facility] CLINICAL PROTOCOL PATIENT (CLNPRO) - Implanted [...] and summary of old medical records (source: [facility], [facility] Everywhere), as summarized in the body [...] taking for her surgical incision. The [employer] international account representative visited the patient in order to [...] ed by Collin Salomon. Ilene Childs DNP, NET FRONT END DEVELOPER-[facility] [address] [place] [address] mmarcelo, Charline Torres MA - 12/22/2018 11:00 [...]
--- OUTSIDE RECORDS SUMMARY | ~2020-03-23 | XMS | Encounter Summary ---
Demographics + + + | Address | [address] | | | [place] [address] | + + + | Home Phone [...] Team Providers + +------+ + | Care Allergy Nurse Name | Role | Phone | [...] [address] | | | | | | [place], [place] | | | | | | [address] | | | +--------+ + + + [...]
--- OUTSIDE RECORDS SUMMARY | ~2020-03-23 | XMS | Encounter Summary ---
Demographics + + + | Address | [address] | | | [place] [address] | + + + | Home Phone [...] Team Providers + +------+ + | Care Clamp Carrier Operator Name | Role | Phone | + +------+ + | Justo Vazquez MD | PCP | | + +------+ + Encounter Details +--------+ + + + + | Date | Type | Department | Care Team | Description | +--------+ + + + + | 03/18/ | Telephone | Digestive Health | Kenny Gaspar MD | | | 2017 | | [facility] [address] | | | | | | [address] | | | | | | Mailcode: [facility] | | | | | | [facility] | | | | | | [facility], [address] | | | | | | [place], [place] | | | | | | [address] | | | | | | [phone] | | | +--------+ + + + [...]
--- OUTSIDE RECORDS SUMMARY | ~2020-03-23 | XMS | Encounter Summary ---
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 Chh1 | | | | / Pain | Abdominal | MD Kenny | [address] | | | | Management | pain, | [address] | [address] | | | | | unspecified | [facility] | Mailcode: | | | | | location | Rd | CH15P Center | | | | | Procedures | [place], [place] | for Health | | | | | CONSULT TO | [address] | and Healing, | | | | | PAIN | | Building | | | | | MANAGEMENT | | 1,15th Floor | | | | | | | [place], [place] | | | | | | | [address] | | | | | | | Phone: | | | | | | | [phone] | | | | | | | Fax: | | | | | | | [phone] | +--------+--------+ + + + + Encounter Details +--------+---------+ + + + | Date | Type | Department | Care Team | Description | +--------+---------+ + + + | 07/11/ | Office | [facility] Comprehensive | Ilene Bright, | Pain of upper | | 2017 | Visit | Pain Center at | MACHINE STEMMER [address] | abdomen (Primary | | | | [place] | [place], [place] | Dx); Intractable | | | | [address] | [address] | cyclical vomiting | | | | Mailcode: CH15P | [phone] | with nausea; | | | | [facility] | | Irritable bowel | | | | and Healing, | | syndrome with | | | | Building | | constipation; | | | | Floor [place], [place] | | Complex regional | | | | [address] | | pain syndrome type 1 | | | | [phone] | | of left lower | | [...] and determine next steps. Ilene Childs DNP, MACHINE STEMMER-C Adult Pain Service /[facility] [address] [place] [address] documented in this encounter Progress Notes Ilene Bright FNP - 07/11/2017 1:35 PM PDTFormatting of this note might be different fr om the original. [facility] Return Visit Date: 07/11/2017 Chief Complaint Patient presents with Abdominal pain Back pain History of Present Illness: Tracie Farah is a 27 year old female, whose last appoi ntment at the [facility] was April 25, 2017, for [...] is in the process of arranging home [facility] for Tracie. She has also changed her [...] her abdominal pain an d associated symptoms. ANIMAL HUSBANDRY MANAGER QUESTIONNAIRE BRIEF PAIN 07/11/2017 Please rate how [...] has interfered with your sleep : 5 ANIMAL HUSBANDRY MANAGER Questionnaire Follow-up Patient 07/11/2017 Please describe the [...] Hemroidectomy Trial spinal cord stimulator leads 08/02/2012 [facility], Surgeon: Janak Riojas MD Cholecystectomy Appendectomy Other [...] History Social History Narrative Single. Goes to [employer] with a light load. Has been working at [employer], can' t work on [employer]. Has roommates. Allergies Allergen Reactions Morphine Anaphylaxis [...] by physician. Concentration is 150mg/mL. Compounded by [facility] ( [phone]) LAMOTRIGINE 200 MG TABLET Take 1 tablet [...] GRAM SOLUTION Take as directed by [facility] Digestive Health- 2 gallon bowel [...] and summary of old medical records (source: [employer] [place]), as summarized in the body of the [...] with, however I will connect with Dr. Gsapar. As she has not tried any dietary [...] Shantel Salinas, am functioning as a medical research scientist for MARLENI Clark DNP I have reviewed and verified the above scribed note of my visit with this patient as record ed by Shantel Salinas. Ilene Childs DNP, TERESA-Brendan Adult Pain Service /[facility] [place] [address] Addendum: I paged Dr. Les Gaspar. He was out of the clinic, I spoke with the covering provider and dianelys Hodges's request for food allergy testing. Since Tracie thinks her pain and vomiting may b e triggered by gluten, covering provided ordered appropriate workup, which I communicated to Tracie and the the lab in [place], [place]. She will followup with me and GI once these results are available. Ilene Childs DNP, MACHINE STEMMER-C Adult Pain Service /[facility] [address] [place] [phone] documented in this e ncounter Plan of [...]
--- OUTSIDE RECORDS SUMMARY | ~2020-03-23 | XMS | Encounter Summary ---
Demographics + + + | Address | [address] | | | [place] [address] | + + + | Home Phone [...] + +------+ + | Care Fine Arts Teacher Name | Role | Phone | + +------+ + | Allegra Gandhi | PCP | | + +------+ + Encounter Details +--------+ + + + + | Date | Type | Department | Care Team | Description | +--------+ + + + + | 03/01/ | Results | [facility] | Janak Riojas, | | | 2011 | Only | Pain Center at | MD [address] [facility] | | | | | [facility] | [facility] [place] [address] | | | | | [address] | [place], [place] | | | | | Mailcode: CH15 | [address] | | | | | [place] for [facility] | [phone] | | | | | and Martina, | | | | | | | | | | | | Floor [place], [place] | | | | | | [address] | | | | | | [phone] | | | +--------+ + + + [...]
--- OUTSIDE RECORDS SUMMARY | ~2020-03-23 | XMS | Encounter Summary ---
Demographics + + + | Address | [address] | | | [place] [address] | + + + | Home Phone [...] Team Providers + +------+ + | Care Terra Cotta Setter Name | Role | Phone | + +------+ + | Allegra Gandhi | PCP | | + +------+ + Encounter Details +--------+ + + + + | Date | Type | Department | Care Team | Description | +--------+ + + + + | 02/13/ | Outside | UNKNOWN DEPARTMENT | Other, Faculty | | | 2011 | Records | [address] [facility] | [phone] | | | | | [address] | | | | | | [place], [place] | | | | | | [address] | | | +--------+ + + + [...]
--- OUTSIDE RECORDS SUMMARY | ~2020-03-23 | XMS | Encounter Summary ---
Demographics + + + | Address | [address] | | | [place] [address] | + + + | Home Phone [...] Team Providers + +------+ + | Care Programmable Logic Controller Assembler Name | Role | Phone | + +------+ + | Justo Vazquez MD | PCP | | + +------+ + Encounter Details +--------+ + + + + | Date | Type | Department | Care Team | Description | +--------+ + + + + | 10/19/ | Telephone | [facility] | Ilene Bright, | | | 2017 | | Pain Center at | ACURA SALES CONSULTANT [address] | | | | | [facility] | [place], [place] | | | | | [address] | [address] | | | | | Mailcode: CH15P | [phone] | | | | | [facility] | | | | | | and Healing, | | | | | | | | | | | | Floor [place], [place] | | | | | | [address] | | | | | | [phone] | | | +--------+ + + + [...]
--- OUTSIDE RECORDS SUMMARY | ~2020-03-23 | XMS | Encounter Summary ---
Demographics + + + | Address | [address] | | | [place] [address] | + + + | Home Phone [...] Providers + +------+ + | Care Parts Order And Stock Clerk Name | Role | Phone [...] | 12/05/ | Hospital | [facility] | Alex Sanchez, | | | 2019 | Encounter | STAY [address] | ,PhD [address] | | | | | Courtney Mailcode: [facility] | [address] | | | | | [facility] | [place], [place] | | | | | Health and [facility], | [address] | | | | | [place] [address] | [phone] | | | | | [place], [place] | | | | | | [address] | | | | | | [phone] | | | +--------+ + + + [...] s/p successful DRG trial lead system with Next Performance System on 09/25/2018. No changes in H&P, [...] OPERATIVE NOTE Date: December 05, 2018 Location: [facility] [place] | | | Tracie Farah [id number] :1990, presents to clinic | | | for: Dorsal root ganglion stimulator implant PROCEDURE: Dorsal | | | root ganglion stimulator implant PRE-OPERATIVE DIAGNOSIS: Complex | | | regional Pain syndrome type 1 of left lower extremity | | | POST-OPERATIVE DIAGNOSIS: Complex regional Pain syndrome type 1 of | | | left lower extremity ATTENDING PHYSICIAN: Alex Sanchez | | | HANDBAG STITCHER: Arben Valerio MD ANESTHESIA: sedation by IVIS Cole | | | Carmen, supervised by automated weaver Ilir Valdes. | | | FINDINGS: Appropriate [...] sedation. Ms. Farah was escorted to the [facility] | | | [place], where [...] to the | | | [facility] telephone sales representative. A test stimulation was performed [...] recovery. Images were saved, and sent to [employer]. | | | Alex Sanchez (attending) was present for the entire procedure. | | | Arben Valerio MD I was present for the entire procedure | | | (spinal cord stimulator implantation with DRG leads at left L4 and | | | L5) and all bocanegra elements of this visit. I reviewed the | | | documentation of the other HOME THEATER EXPERT providers and concur with Dr. | | | Iman's findings. I edited his note. Alex Sanchez, | | | ,PhD Gas Appliance Servicer Anesthesiology and Pain Management | | | [facility] | | + + + [...] + + | JOSE ANTONIO MIN | [address] [facility] | [place] [address] | | | OF CARE TESTS | [...]
--- OUTSIDE RECORDS SUMMARY | ~2020-03-23 | XMS | Encounter Summary ---
Demographics + + + | Address | [address] | | | [place] [address] | + + + | Home Phone [...] Team Providers + +------+ + | Care Ruffling Machine Operator Name | Role | Phone | + +------+ + | Justo Vazquez MD | PCP | | + +------+ + Encounter Details +--------+ + + + + | Date | Type | Department | Care Team | Description | +--------+ + + + + | 12/07/ | Telephone | [facility] | Alex Sanchez, | | | 2019 | | Pain Center at | ,PhD [address] | | | | | [facility] | [facility] [address] | | | | | [address] | [place], [place] | | | | | Mailcode: CH15P | [phone] | | | | | [place] for [facility] | [phone] | | | | | and Healing, | | | | | | | | | | | | Floor [facility] [place] | | | | | | [address] | | | | | | [phone] | | | +--------+ + + + [...]
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
--- OUTSIDE RECORDS SUMMARY | ~2020-03-23 | XMS | Encounter Summary ---
Demographics + + + | Address | [address] | | | [place] [address] | + + + | Home Phone [...] Team Providers + +------+ + | Care Score Caller Name | Role | Phone | + [...] | | | [address] Mailcode: | [place], [place] | | | | | [address] | [address] | | | | | Health and Healing, | [phone] | | | | | | | | | | | Floor [facility] [place] | | | | | | [address] | | | | | | [phone] | | | +--------+ + + + [...] Note | + + | Service Account, [employer] In Interface - 03/08/2018 9:42 AM [...]
--- OUTSIDE RECORDS SUMMARY | ~2020-03-23 | XMS | Encounter Summary ---
Demographics + + + | Address | [address] | | | [place] [address] | + + + | Home Phone [...] Providers + +------+ + | Care Teleprinter Installer Name | Role | Phone | [...] | [facility] | [address] | | | | | [address] | [place], [place] | | | | | Mailcode: CH15P | [address] | | | | | [place] for [facility] | [phone] | | | | | and Healing, | | | | | | | | | | | | Floor [place], [place] | | | | | | [address] | | | | | | [phone] | | | +--------+ + + + [...]
--- OUTSIDE RECORDS SUMMARY | ~2020-03-23 | XMS | Encounter Summary ---
Demographics + + + | Address | [address] | | | [place] [address] | + + + | Home Phone [...] Providers + +------+ + | Care Retail Seasonal Specialist Name | Role | Phone | + +------+ + | Justo Vazquez MD | PCP | | + +------+ + Encounter Details +--------+ + + + + | Date | Type | Department | Care Team | Description | +--------+ + + + + | 12/28/ | Ostrich Farm Worker | [facility] Comprehensive | Alex Sanchez, | Arthralgia of lower | | 2018 | | Pain Center at | ,PhD [address] | leg, unspecified | | | | [facility] | [address] | laterality (Primary | | | | [address] | [place], [place] | Dx) | | | | Mailcode: CH15P | [address] | | | | | [place] for [facility] | [phone] | | | | | and Healing, | | | | | | Building | | | | | | Floor [place], [place] | | | | | | [address] | | | | | | [phone] | | | +--------+ + + + [...]
--- OUTSIDE RECORDS SUMMARY | ~2020-03-23 | XMS | Encounter Summary ---
Demographics + + + | Address | [address] | | | [place] [address] [...] Providers + +------+ + | Care Farm Crops Teacher Name | Role | Phone | + +------+ + | Justo Vazquez MD | PCP | | + +------+ + Encounter Details +--------+ + + + + | Date | Type | Department | Care Team | Description | +--------+ + + + + | 01/02/ | Telephone | [facility] | Ilene Bright, | | | 2019 | | Pain Center at | ROOF ASSEMBLER [address] | | | | | [facility] | [place], [place] | | | | | [address] | [address] | | | | | Mailcode: CH15P | [phone] | | | | | [facility] | | | | | | and Healing, | | | | | | | | | | | | Floor [place], [place] | | | | | | [address] | | | | | | [phone] | | | +--------+ + + + [...]
--- OUTSIDE RECORDS SUMMARY | ~2020-03-23 | XMS | Encounter Summary ---
Demographics + + + | Address | [address] | | | [place] [address] | + + + | Home Phone [...] Providers + +------+ + | Care Pipe Fitter Soft Copper Name | Role | Phone | + [...] | | | | | [place], | | | | | | [place] [address] | | | +--------+ + + + [...]
--- OUTSIDE RECORDS SUMMARY | ~2020-03-23 | XMS | Encounter Summary ---
Demographics + + + | Address | [address] | | | [place] [address] | + + + | Home Phone [...] Providers + +------+ + | Care Senior Accounting Associate Name | Role | Phone | + +------+ + | Justo Vazquez MD | PCP | | + +------+ + Encounter Details +--------+ + + + + | Date | Type | Department | Care Team | Description | +--------+ + + + + | 12/28/ | Playground Director | [facility] Comprehensive | Alex Sanchez, | Arthralgia of lower | | 2018 | | Pain Center at | ,PhD [address] | leg, unspecified | | | | [facility] | [address] | laterality (Primary | | | | [address] | [place], [place] | Dx) | | | | Mailcode: CH15P | [address] | | | | | [place] for [facility] | [phone] | | | | | and Healing, | | | | | | Building | | | | | | Floor [place], [place] | | | | | | [address] | | | | | | [phone] | | | +--------+ + + + [...]
--- OUTSIDE RECORDS SUMMARY | ~2020-03-23 | XMS | Encounter Summary ---
Demographics + + + | Address | [address] | | | [place] [address] | + + + | Home Phone [...] + +------+ + | Care Director Of People Name | Role | Phone | + [...] Rd | | | | | | [place], [place] | | | | | | [address] | | | +--------+ + + + [...]
--- OUTSIDE RECORDS SUMMARY | ~2020-03-23 | XMS | Encounter Summary ---
Demographics + + + | Address | [address] | | | [place] [address] | + + + | Home Phone [...] Providers + +------+ + | Care Manager Data Name | Role | Phone | + [...] Bowel Clean-out | | 2015 | | [place] at [facility] [address] | MD Melissa | | | | | [address] | | | | | | Mailcode: [place] | | | | | | [facility] and | | | | | | [facility], [facility] 2 | | | | | | [place], [place] | | | | | | [address] | | | | | | [phone] | | | +--------+ + + + [...]
--- OUTSIDE RECORDS SUMMARY | ~2020-03-23 | XMS | Encounter Summary ---
Demographics + + + | Address | [address] | | | [place] [address] | + + + | Home Phone [...] Providers + +------+ + | Care Supervisor Plate Pasting Name | Role | Phone | + [...] 2017 | | Center at [facility] [address] | | | | | | [address] | | | | | | Mailcode: [place] | | | | | | for Health and | | | | | | Healing, Building 2 | | | | | | [facility] [place] | | | | | | [address] | | | | | | [phone] | | | +--------+--------+ + + + [...]
--- OUTSIDE RECORDS SUMMARY | ~2020-03-23 | XMS | Encounter Summary ---
Demographics + + + | Address | [address] | | | [place] [address] | + + + | Home Phone [...] Team Providers + +------+ + | Care Commissioning Engineer Name | Role | Phone | + +------+ + | Justo Vazquez MD | PCP | | + +------+ + Encounter Details +--------+ + + + + | Date | Type | Department | Care Team | Description | +--------+ + + + + | 12/07/ | Gold Tooler | [facility] at [facility] | Ava Carbajal | | | 2016 | | [place] [address] Katy Torres MD | | | | | [address] Mailcode: | | | | | | [place] for | | | | | | Health and Healing, | | | | | | Building 2 | | | | | | [place], [place] | | | | | | [address] | | | | | | [phone] | | | +--------+ + + + [...]
--- OUTSIDE RECORDS SUMMARY | ~2020-03-23 | XMS | Encounter Summary ---
Demographics + + + | Address | [address] | | | [place] [address] | + + + | Home Phone [...] Providers + +------+ + | Care Informatics Nurse Specialist Name | Role | Phone [...] | | Complex | Alex Alba, | [facility] [place] [address] | | | | | regional | ,PhD [address] | Pavilion | | | | | pain | [address] | | | | | syndrome | [address] | [address], | | | | | type 1 of | Rd | Basement | | | | | left lower | [place], [place] | [place], [place] | | | | | extremity | [address] | [address] | | | | | Muscle pain | Phone: | Phone: | | | | | Procedures | [phone] | [phone] | | | | | NM BONE | Fax: | Fax: | | | | | &/OR JOINT | [phone] | [phone] | | | | | IMAGING | [...] | | | | | | | IN BONE | | | | | | | IMAGING, | | | | | | | LIMITED AREA | | | | | | | IN BONE | | | | | | [...] | | 2018 | Encounter | at [facility] [address] | ,PhD [address] [facility] | | | | | [address] | [address] | | | | | [address], | [place], [place] | | | | | [facility], | [address] | | | | | [place] [address] | [phone] | | | | | [phone] | | | +--------+ + + + [...]
--- OUTSIDE RECORDS SUMMARY | ~2020-03-23 | XMS | Encounter Summary ---
Demographics + + + | Address | [address] | | | [place] [address] | + + + | Home Phone [...] Team Providers + +------+ + | Care Broadcast Producer Name | Role | Phone | [...] 2017 | | Pain Center at | SOFTWARE INTEGRATION DEVELOPER [address] | | | | | [facility] | [place], [place] | | | | | [address] | [address] | | | | | Mailcode: CH15 | [phone] | | | | | [facility] | | | | | | and Healing, | | | | | | Building | | | | | | Floor [place], [place] | | | | | | [address] | | | | | | [phone] | | | +--------+ + + + [...]
--- OUTSIDE RECORDS SUMMARY | ~2020-03-23 | XMS | Encounter Summary ---
Demographics + + + | Address | [address] | | | [place] [address] | + + + | Home Phone [...] Team Providers + +------+ + | Care Veterans Employment Representative Name | Role | Phone | [...] | | | | | Procedures | [place], [place] | | | | | | MR | [id number] | | | | | | ENTEROGRAPHY [...] pain, | | 2017 | Visit | [place] at [facility] [address] | | unspecified location | | | | [address] | | (Primary Dx) | | | | Mailcode: [place] | | | | | | for Health and | | | | | | Healing, Building 2 | | | | | | [place], [place] | | | | | | [address] | | | | | | [phone] | | | +--------+---------+ + + + [...] heavy metal poisoning 2) MR enterography - [phone] to schedule 3) can increase miralax to 6 times per day Return to clinic in 3 months Please feel free to call our clinic with any questions. [phone] Kenny Gaspar MD Fellow, Division of Gastroenterology [...] n their attached note. Celia Lin MD [employer] consultant Division of Gastroenterology & Hepatology [facility] Kenny Dodge Md - 2016 3:15 PM PST Gastroenterology Clinic Follow-Up Note 01/11/2017 CC/ID: Tracie Farah is a 26 F PMHx depression, complex regional pain syndrome(CRPS ) here for follow-up of n/v, abdominal pain INTERVAL HISTORY: Previously seen by Dr. Carbajal 08/10/16 - 10/2015 - hospitalized at [facility] for nausea/vomiting/pain -> [facility] -> CT A/P [...] oral recon soln Take as directed by [facility]- 2 gallon bowel prep [...]
--- OUTSIDE RECORDS SUMMARY | ~2020-03-23 | XMS | Encounter Summary ---
Demographics + + + | Address | [address] | | | [place] [address] | + + + | Home Phone [...] Providers + +------+ + | Care Poultry Hatchery Man Name | Role | Phone [...] Oliveira | | 2011 | IP | [address] | | House - Approved | | | | Giuliana Maldonado [place], | | | | | | [place] [address] | | | +--------+ + + + [...]
--- OUTSIDE RECORDS SUMMARY | ~2020-03-23 | XMS | Encounter Summary ---
Demographics + + + | Address | [address] | | | [place] [address] | + + + | Home Phone [...] Team Providers + +------+ + | Care Boiler Testing Technician Name | Role | Phone | [...] Rd | | | | | | [place], [place] | | | | | | [address] | | | +--------+ + + + [...]
--- OUTSIDE RECORDS SUMMARY | ~2020-03-23 | XMS | Encounter Summary ---
Demographics + + + | Address | [address] | | | [place] [address] | + + + | Home Phone [...] Providers + +------+ + | Care Ring Maker Name | Role | Phone | [...] info ) | | 2016 | | [place] at [facility] [address] | MD Melissa | | | | | [address] | | | | | | Mailcode: [place] | | | | | | for Health and | | | | | | [facility], [facility] 2 | | | | | | [place], [place] | | | | | | [address] | | | | | | [phone] | | | +--------+ + + + [...]
--- OUTSIDE RECORDS SUMMARY | ~2020-03-23 | XMS | Encounter Summary ---
Demographics + + + | Address | [address] | | | [place] [address] | + + + | Home Phone [...] Providers + +------+ + | Care Assembler Crimper Name | Role | Phone | + +------+ + | Justo Vazquez MD | PCP | | + +------+ + Encounter Details +--------+ + + + + | Date | Type | Department | Care Team | Description | +--------+ + + + + | 10/03/ | Telephone | [facility] | Ilene Bright, | | | 2017 | | Pain Center at | BILINGUAL RESEARCH INTERVIEWER [address] | | | | | [facility] | [place], [place] | | | | | [address] | [address] | | | | | Mailcode: CH15P | [phone] | | | | | [facility] | | | | | | and Healing, | | | | | | | | | | | | Floor [place], [place] | | | | | | [address] | | | | | | [phone] | | | +--------+ + + + [...]
--- OUTSIDE RECORDS SUMMARY | ~2020-03-23 | XMS | Encounter Summary ---
Demographics + + + | Address | [address] | | | [place] [address] | + + + | Home Phone [...] Providers + +------+ + | Care Manager Sports Name | Role | Phone | + [...] Rd | | | | | | [place], [place] | | | | | | [address] | | | +--------+ + + + [...]
--- OUTSIDE RECORDS SUMMARY | ~2020-03-23 | XMS | Encounter Summary ---
Demographics + + + | Address | [address] | | | [place] [address] | + + + | Home Phone [...] Providers + +------+ + | Care Insurance Coordinator Name | Role | Phone | + +------+ + | Justo Vazquez MD | PCP | | + +------+ + Encounter Details +--------+ + + + + | Date | Type | Department | Care Team | Description | +--------+ + + + + | 10/20/ | Telephone | [facility] | Ilene Bright, | | | 2017 | | Pain Center at | PHOTOGRAPHIC HAND DEVELOPER [address] | | | | | [facility] | [place], [place] | | | | | [address] | [address] | | | | | Mailcode: CH15P | [phone] | | | | | [facility] | | | | | | and Healing, | | | | | | | | | | | | Floor [place], [place] | | | | | | [address] | | | | | | [phone] | | | +--------+ + + + [...]
--- OUTSIDE RECORDS SUMMARY | ~2020-03-23 | XMS | Encounter Summary ---
Demographics + + + | Address | [address] | | | [place] [address] | + + + | Home Phone [...] Providers + +------+ + | Care Revenue Accountant Name | Role | Phone | + +------+ + | Justo Vazquez MD | PCP | | + +------+ + Encounter Details +--------+ + + + + | Date | Type | Department | Care Team | Description | +--------+ + + + + | 09/25/ | Hospital | Radiology/Imaging | Aleta Rebollar MD 6[address] | | | 2018 | Encounter | Lab at [facility] [address] | [address] | | | | | [address] Mailcode: | [place], [place] | | | | | [address] | [address] | | | | | Health and Healing, | [phone] | | | | | [facility] | | | | | | Floor [place], [place] | | | | | | [address] | | | | | | [phone] | | | +--------+ + + + [...]
--- OUTSIDE RECORDS SUMMARY | ~2020-03-23 | XMS | Encounter Summary ---
Demographics + + + | Address | [address] | | | [place] [address] | + + + | Home Phone [...] Providers + +------+ + | Care Field Kiln Burner Name | Role | Phone | + [...] | | regional | ,PhD [address] | | | | | | pain | [address] | | | | | | syndrome | [address] | | | | | | type 1 of | Rd | | | | | | left lower | [place], [place] | | | | | | extremity | [address] | | | | | | Other | Phone: | | | | | | chronic pain | [phone] | | | | | | S/P | Fax: | | | | | | insertion of | [phone] | | | | | | spinal [...] | | | | regional | ,PhD [address] | | | | | | pain | [address] | | | | | | syndrome | [address] | | | | | | type 1 of | Rd | | | | | | left lower | [place], [place] | | | | | | extremity | [address] | | | | | | Other | Phone: | | | | | | chronic pain | [phone] | | | | | | S/P | Fax: | | | | | | insertion of | [phone] | | | | | | spinal [...] + + | 04/26/ | Telephone | [facility] Comprehensive | Alex Sanchez, | | | 2018 | | Pain Center at | ,PhD [address] [facility] | | | | | [facility] | [facility] | | | | | [address] | [place], [place] | | | | | Mailcode: CH15P | [address] | | | | | [facility] | [phone] | | | | | and Martina, | | | | | | | | | | | | Floor [place], [place] | | | | | | [address] | | | | | | [phone] | | | +--------+ + + + [...]
--- OUTSIDE RECORDS SUMMARY | ~2020-03-23 | XMS | Encounter Summary ---
Demographics + + + | Address | [address] | | | [place] [address] | + + + | Home Phone [...] Providers + +------+ + | Care Retort Forker Name | Role | Phone | + [...] | Encounter | Lab at [facility] [address] | ,PhD [address] [facility] | | | | | [address] Mailcode: | [address] | | | | | [address] for | [place], [place] | | | | | Health and Healing, | [address] | | | | | [place] [address] [facility] | [phone] | | | | | [place], [place] | | | | | | [address] | | | | | | [phone] | | | +--------+ + + + [...]
--- OUTSIDE RECORDS SUMMARY | ~2020-03-23 | XMS | Encounter Summary ---
Demographics + + + | Address | [address] | | | [place] [address] | + + + | Home Phone [...] Providers + +------+ + | Care Qa Architect Name | Role | Phone | + +------+ + | Justo Vazquez MD | PCP | | + +------+ + Encounter Details +--------+ + + + + | Date | Type | Department | Care Team | Description | +--------+ + + + + | 12/05/ | Pharmacy | [facility] | | | | 2019 | Visit | & [facility]aling Pharmacy | | | | | | [address] | | | | | | Mailcode: [place] | | | | | | [facility] and | | | | | | Healing, Building 1 | | | | | | [place], [place] | | | | | | [address] | | | | | | [phone] | | | +--------+ + + + [...]
--- OUTSIDE RECORDS SUMMARY | ~2020-03-23 | XMS | Encounter Summary ---
Demographics + + + | Address | [address] | | | [place] [address] | + + + | Home Phone | | + + + | Preferred Language | Unknown | + + + | Marital Status | Single | + + + | Muslim Affiliation | 1073 | + + + | Race | Unknown | + + + | Ethnic Group | Unknown | + + + Author + + + | Author | [facility] | | | and [place] | + + + | Organization | [facility] | | | and [...] [place] | | | | | [address] | | + + + + + | Bryant Farah | ECON | Unknown | | + + + + + Care Team Providers + +------+ + | Care Manager Ship Name | Role | Phone | + +------+ + PCP | Unavailable | + +------+ + Encounter Details +--------+ + + + + | Date | Type | Department | Care Team | Description | +--------+ + + + + | 03/16/ | Hospital | [facility] IP | Conversion | Back pain | | 2013 | Encounter | CONVERSION [address] | Transaction, | | | | | [address] | Provider Unknown | | | | | [place], [place] | [phone] | | | | | [address] | | | | | | [phone] | | | +--------+ + + + [...]
--- OUTSIDE RECORDS SUMMARY | ~2020-03-23 | XMS | Encounter Summary ---
Demographics + + + | Address | [address] | | | [place] [address] | + + + | Home Phone [...] Providers + +------+ + | Care General Helper Name | Role | Phone | [...] at [facility] [address] | MD [address] | | | | | [address] | [place], [place] | | | | | Mailcode: Center | [address] | | | | | for Health and | [phone] | | | | | [facility] 2 | | | | | | [place], [place] | | | | | | [address] | | | | | | [phone] | | | +--------+ + + + [...]
--- OUTSIDE RECORDS SUMMARY | ~2020-03-23 | XMS | Encounter Summary ---
Demographics + + + | Address | [address] | | | [place] [address] | + + + | Home Phone [...] Team Providers + +------+ + | Care Speech And Language Clinician Name | Role | Phone | + +------+ + | Justo Vazquez MD | PCP | | + +------+ + Encounter Details +--------+------+ + + + | Date | Type | Department | Care Team | Description | +--------+------+ + + + | 12/14/ | Lab | Laboratory at [facility] | | Complex regional | | 2018 | | [address] | | pain syndrome type 1 | | | | [place], [place] | | of left lower | | | | [address] | | extremity; Muscle | | | | [phone] | | pain | +--------+------+ + + [...] + + + + + | [facility] | [address] [facility] | [place] [address] | | | SERVICES, LILLIAN | GUILLERMO [...]
--- OUTSIDE RECORDS SUMMARY | ~2020-03-23 | XMS | Encounter Summary ---
Demographics + + + | Address | [address] | | | [place] [address] | + + + | Home Phone [...] Providers + +------+ + | Care Truck Caterer Name | Role | Phone | + [...] 2017 | | Pain Center at | BUSINESS OBJECTS DEVELOPER [address] | | | | | [facility] | [facility] [place] | | | | | [address] | [address] | | | | | Mailcode: CH15P | [phone] | | | | | [facility] | | | | | | and Healing, | | | | | | Building | | | | | | [place], [place] | | | | | | [address] | | | | | | [phone] | | | +--------+ + + + [...]
--- OUTSIDE RECORDS SUMMARY | ~2020-03-23 | XMS | Encounter Summary ---
Demographics + + + | Address | [address] | | | [place] [address] | + + + | Home Phone [...] Providers + +------+ + | Care Surveillance System Monitor Name | Role | Phone | [...] | | | | | constipation | [place], [place] | for Health | | | | | type | [address] | and Healing, | | | | | Abdominal | | Building 2 | | | | | pain, | | [place], [place] | | | | | unspecified | | [address] | | | | | location | | Phone: | | | | | Procedures | | [phone] | | | | | CONSULT TO | | Fax: | | | | | GI PROCEDURE | | [phone] | | | | | UNIT: | | | | | | | COLONOSCOPY | | | | | | | [place] | | | | | | [...] | | 2015 | | Center at [facility] [address] | MD Melissa | Vomiting (Bile) | | | | [address] | | | | | | Mailcode: Center | | | | | | for Health and | | | | | | Healing, Building 2 | | | | | | [place], [place] | | | | | | [address] | | | | | | [phone] | | | +--------+ + + + [...]
--- OUTSIDE RECORDS SUMMARY | ~2020-03-23 | XMS | Encounter Summary ---
Demographics + + + | Address | [address] | | | [place] [address] | + + + | Home Phone [...] Team Providers + +------+ + | Care Pattern Chart Writer Name | Role | Phone | [...] | Diagnoses | [place] | Edu [employer] Art Teacher | | | | Therapy | CRPS | Janak Martinez MD | [facility] [address] | | | | | (complex | [address] | | | | | regional | [address] | Mailcode: | | | | | pain | Mailstop | [facility] | | | | | syndrome), | [id number] | for Health | | | | | lower limb | [place], [place] | and Healing, | | | | | Gait | [address] | [address] 1 | | | | | disturbance | Phone: | [place], [place] | | | | | Muscle pain | [phone] | [address] | | | | | Procedures | Fax: | Phone: | | | | | PHYSICAL | [phone] | [phone] | | | | | THERAPY | | | | | | | REFERRAL | | | +--------+--------+ + + + + Encounter Details +--------+---------+ + + + | Date | Type | Department | Care Team | Description | +--------+---------+ + + + | 05/24/ | Office | [facility] Physical | Guilelrmo Sanon I, | CRPS (complex | | 2011 | Visit | Therapy Services at | PT [address] | regional pain | | | | [place] | [place] [address] | syndrome), lower | | | | [address] | [phone] | limb (Primary Dx) | | | | Mailcode: [facility]3P | | | | | | [facility] | Specialist, Edu | | | | | and Healing, | Exercise [address] | | | | | Building | [address] [place], | | | | | Floor [place], [place] | [place] [address] | | | | | [address] | | | | | | [phone] | | | +--------+---------+ + + + [...] might be different f rom the original. [id number] BRODY FARAH Date of : 1990 Start of care: 02/14/2012 Date of onset: 02/14/2012 Referring/Attending Practitioner: Janak Riojas MD . Primary/Referral Diagnosis/ICD-9: 355.71B CRPS (complex regional pain syndrome), lower limb Insurance: Payor: [facility] [facility] Plan: BCBS OUT OF STATE Product Type: PP O Service period from: 02/14/2012 to: 08/12/2012 Number visits used/authorized: 02/23 [facility] PHYSICAL THERAPY PROGRESS NOTE SUBJECTIVE: Age: [...] any change in their status. Guillermo Sanon [facility] Outpatient Rehabilitation Services Mailcode: Ch3p [address] [facility], [address] [place] [address] documented in this encounter Plan of Treatment Not on filedocumented as of this encounter Procedures + +--------+ + + + | Procedure Name | Priori | Date/Time | Associated Diagnosis | Comments | | | ty | | | | + +--------+ + + + | [place] THERAPEUTIC | Routin | 05/24/2012 | CRPS (complex | | | EXERCISES | e | 6:23 PM | regional pain | | | | | PDT | syndrome), lower | | | | | | limb | | + +--------+ + + + | [place] THERAPEUTIC | Routin | 05/24/2012 | CRPS [...]
--- OUTSIDE RECORDS SUMMARY | ~2020-03-23 | XMS | Encounter Summary ---
Demographics + + + | Address | [address] | | | [place] [address] | + + + | Home Phone [...] Team Providers + +------+ + | Care Repairer Sash And Door Name | Role | Phone | + [...] | | Complex | [place], | [facility] [address] | | | | | regional | ,PhD [address] | Pavilion | | | | | pain | [address] | | | | | syndrome | [address] | [address], | | | | | type 1 of | Rd | Basement | | | | | left lower | [place], [place] | [place], [place] | | | | | extremity | [address] | [address] | | | | | Muscle pain | Phone: | Phone: | | | | | Procedures | [phone] | [phone] | | | | | NM BONE | Fax: | Fax: | | | | | &/OR JOINT | [phone] | [phone] | | | | | IMAGING | [...] + + | 12/27/ | Ancillary | [facility] Comprehensive | Alex Sanchez, | | | 2018 | Orders | Pain Center at | ,PhD [address] [facility] | | | | | [facility] | [address] | | | | | [address] | [place], [place] | | | | | Mailcode: CH15P | [address] | | | | | [facility] | [phone] | | | | | and Healing, | | | | | | Building | | | | | | Floor [place], [place] | | | | | | [address] | | | | | | [phone] | | | +--------+ + + + [...]
--- OUTSIDE RECORDS SUMMARY | ~2020-03-23 | XMS | Encounter Summary ---
Demographics + + + | Address | [address] | | | [place] [address] | + + + | Home Phone [...] Providers + +------+ + | Care Physician General Internal Medicine Name | Role | Phone | + +------+ + | Justo Vazquez MD | PCP | | + +------+ + Encounter Details +--------+ + + + + | Date | Type | Department | Care Team | Description | +--------+ + + + + | 03/18/ | Telephone | Digestive Health | Kenny Gaspar MD | | | 2017 | | [place] at [facility] [address] | | | | | | [address] | | | | | | Mailcode: [place] | | | | | | for Health and | | | | | | Healing, Building 2 | | | | | | [place], [place] | | | | | | [address] | | | | | | [phone] | | | +--------+ + + + [...]
--- OUTSIDE RECORDS SUMMARY | ~2020-03-23 | XMS | Encounter Summary ---
Demographics + + + | Address | [address] | | | [place] [address] | + + + | Home Phone [...] Team Providers + +------+ + | Care Budget Examiner Name | Role | Phone | [...] | | | | | syndrome | [facility] | [facility] | | | | | type 1 of | Rd | Rd [place], | | | | | left lower | [facility], [place] | [place] | | | | | extremity | [address] | [address] | | | | | Procedures | Phone: | Phone: | | | | | REQUEST TO | [phone] | [phone] | | | | | SURGERY | Fax: | Fax: | | | | | BASKETBALL SCOUT | [phone] | [phone] | +--------+---------+ + + + + Physical [...] | | | | regional | ,PhD 2501 | OTPTRehab | | | | | pain | [facility] | [address] | | | | | syndrome | [facility] | [address] | | | | | type 1 of | Rd | [place] | | | | | left lower | [place], [place] | [address] | | | | | extremity | [address] | Phone: | | | | | Procedures | Phone: | [phone] | | | | | PHYSICAL | [phone] | Fax: | | | | | THERAPY | Fax: | [phone] | | | | | REFERRAL | [phone] | | +--------+--------+ + + + + [...] | | | | unspecified | [address] | [address] | | | | | location | Rd | [address] | | | | | Procedures | [place], [place] | Rd [place], | | | | | CONSULT TO | [address] | [place] | | | | | PAIN | | [address] | | | | | MANAGEMENT | | Phone: | | | | | | | [phone] | | | | | | | Fax: | | | | | | | [phone] | +--------+--------+ + + + + Encounter Details +--------+---------+ + + + | Date | Type | Department | Care Team | Description | +--------+---------+ + + + | 06/12/ | Office | [facility] Comprehensive | Alex Sanchez, | Complex regional | | 2018 | Visit | Pain Center at | ,PhD [address] [facility] | pain syndrome type 1 | | | | [facility] | [facility] [address] | of left lower | | | | [address] | [place], [place] | extremity (Primary | | | | Mailcode: CH15P | [address] | Dx) | | | | [facility] | [phone] | | | | | and Healing, | | | | | | | | | | | | Floor [place], [place] | | | | | | [address] | | | | | | [phone] | | | +--------+---------+ + + + [...] in the future, please contact me via Eight19 to request an order to schedule. The procedure you discussed with your doctor is called: SCS DRG TRIAL LUMBAR [facility]. Please make sure this is scheduled with the Molded Goods Controls Operator. PRE-PROCEDURE INSTRUCTIONS 1. Please bring a tractor trailer truck driver with you as we may give you medications that impair your ability to drive. This is necessary even if you do not receive sedation. You may take a taxi or ri [employer] if you are accompanied by a responsible [...] 2 weeks before your procedure, please contact [facility] to cl arify your instructions. The phone number for questions or concerns is [phone]. documented in this encounter Progress Notes Holly [...] hD - 06/12/2018 10:00 AM PDT [facility] Return Visit Date: 06/12/2018 Chief Complaint Patient presents with Pain in left leg History of Present Illness: Tracie Farah is a 28 year old female, whose last appoi ntment at the [facility] was May 08, [...] that this mildly agitated her neck pain. YOUTUBER Brief Pain Inventory: (ten= worst possible pain [...] Trial spinal cord stimulator leads 08/02/2012 [facility], Surgeon: Janak Riojas MD Cholecystectomy [...] History Social History Narrative Single. Goes to [employer] with a light load. Has been working at [employer], can' t work on [employer]. Has roommates. Allergies Allergen Reactions Morphine Anaphylaxis [...] by physician. Concentration is 150mg/mL. Compounded by [facility] ) KETOROLAC IM Inject into the [...] directed by [facility]- 2 gallon [...] and summary of old medical records (source: Codefied), as summarized in the body of the [...] to send me a mess age via Eight19 to request referrals to acupuncture and massage [...] by Sonia Key. Alex Sanchez MD PhD Coal Cutter Anesthesiology and Pain Management [facility] documented in t his encounter [...]
--- OUTSIDE RECORDS SUMMARY | ~2020-03-23 | XMS | Encounter Summary ---
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 | | | | Therapy | CRPS | Janak Martinez MD | [address] | | | | | (complex | [address] | | | | | regional | [address] | Mailcode: | | | | | pain | Mailstop | [facility] | | | | | syndrome), | [id number] | for Health | | | | | lower limb | [place], [place] | and Healing, | | | | | Gait | [address] | Building [address] | | | | | disturbance | Phone: | [place], [place] | | | | | Muscle pain | [phone] | [address] | | | | | Procedures | Fax: | Phone: | | | | | PHYSICAL | [phone] | [phone] | | | | | THERAPY | [...] regional pain | | | | [facility] | [place] [address] | syndrome), lower | | | | [address] | [phone] | limb (Primary Dx) | | | | Mailcode: CH3P | | | | | | [facility] | | | | | | and Healing, | | | | | | Building 1 | | | | | | Floor [place], [place] | | | | | | [address] | | | | | | [phone] | | | +--------+---------+ + + + [...] might be different f rom the original. [id number] BRODY FARAH Date of : 1990 Start of care: 02/14/2012 Date of onset: 02/14/2012 Referring/Attending Practitioner: Janak Riojas MD . Primary/Referral Diagnosis/ICD-9: 355.71B CRPS (complex regional pain syndrome), lower limb Insurance: Payor: [facility] Plan: BCBS OUT OF STATE Product Type: [...] any change in their status. Guillermo Sanon [facility] Outpatient Rehabilitation Services Mailcode: Ch3p 0932 [facility], [address] [place] [address] documented in this encounter Plan of Treatment Not on filedocumented as of this encounter Procedures + +--------+ + + + | Procedure Name | Priori | Date/Time | Associated Diagnosis | Comments | | | ty | | | | + +--------+ + + + | [place] MANUAL THER | Routin | 06/09/2012 | CRPS (complex | | | TECH,1+REGIONS,EA 15 | e | 2:46 PM | regional pain | | | MIN | | PDT | syndrome), lower | | | | | | limb | | + +--------+ + + + | [place] THERAPEUTIC | Routin | 06/09/2012 | CRPS [...]
--- OUTSIDE RECORDS SUMMARY | ~2020-03-23 | XMS | Encounter Summary ---
Demographics + + + | Address | [address] | | | [place] [address] | + + + | Home Phone [...] Providers + +------+ + | Care Oracle Dba Name | Role | Phone | + +------+ + | Justo Vazquez MD | PCP | | + +------+ + Encounter Details +--------+ + + + + | Date | Type | Department | Care Team | Description | +--------+ + + + + | 12/02/ | Document-Sc | Health Information | Unknown . | | | 2017 | anned | Services 1998 | | | | | | [address] | | | | | | Mailcode: OP17A | | | | | | [facility] | | | | | | [place], [place] | | | | | | [address] | | | | | | [phone] | | | +--------+ + + + [...]
--- OUTSIDE RECORDS SUMMARY | ~2020-03-23 | XMS | Encounter Summary ---
Demographics + + + | Address | [address] | | | [place] [address] | + + + | Home Phone [...] Providers + +------+ + | Care Supervisor Offset Plate Preparation Name | Role | Phone | + [...] | | | regional | [place] | [address] | | | | | pain | FAMILY | Mailstop | | | | | syndrome), | MEDICINE P | [id number] | | | | | lower limb | [address] | [place], [place] | | | | | Gait | [place], | [address] | | | | | disturbance | [place] [address] | Phone: | | | | | Muscle pain | Phone: | [phone] | | | | | Procedures | [phone] | Fax: | | | | | REQUEST TO | Fax: | [phone] | | | | | SURGERY | [phone] | | | | | | WIRE TECHNICIAN | | | +--------+--------+ + + + + Encounter Details +--------+ + + + + | Date | Type | Department | Care Team | Description | +--------+ + + + + | 03/01/ | Procedure | Pain Center at [facility] | Dale Cantu, | Foot pain (left); | | 2011 | | [address] | [address] | Procedure | | | | Mailcode: CH15P | St Mailstop [id number] | | | | | [facility] | [place], [place] | | | | | and [place], | [address] | | | | | | [phone] | | | | | Floor [place], [place] | | | | | | [address] | | | | | | [phone] | | | +--------+ + + + [...] your procedure tonight, Please call the Hospital Coding Quality Analyst, and ask for the Pain Management [...] to the larry ent. LAKEISHA HERRING MD [facility] documented in this encounter Progress Notes Dale Cantu MD - 03/01/2012 2:21 PM PDTI was present for the entire procedure (lumbar sympathetic block) and all bocanegra elements of this visit. I reviewed the documentation of the other CANDY FEEDER providers and concur with Dr. Herring's findings. [...] benefit from multidisciplinary treatment. DALE CANTU MD Flat Lock Machine Operator, [facility] Retention Manager, Pain Medicine Professor, Anesthesiology & Perioperative Medicine NAEiDiana scott RN - 03/01/2012 1:35 PM PDT PRE-SEDATION: Date: March 01, 2012 Tracie Farah [id number] 1990 ALLERGIES: Morphine Previous reaction to Sedation/Analgesia: MEDICATIONS: Current Outpatient Prescriptions Medication DULoxetine (CYMBALTA) 30 mg Oral Capsule, Delayed Release(E.C.) HYDROcodone-acetaminophen (NORCO) 10-325 mg Oral Tablet levonorgestrel (MIRENA) 20 mcg/24 hr Intrauterine IUD LORazepam 1 mg Oral Tablet promethazine 25 mg Oral Tablet Meets NPO Guidelines. IV ACCESS: IV in Place IV Start Time 99908, 22g, DRH BASELINE VS: See Sedation Flow Sheet. Tracie Farah [id number] 1990, presents to clinic for: Procedure: Lumbar [...] ml. 1344: Procedure complete. Pt returned to [place] 1 per eva in stable condiotion. IV [...] OPERATIVE NOTE Date: March 01, 2012 Location: [facility] Procedure Room Tracie Donaldson [facility] [id number] :1990, presents to clinic for: PROCEDURE: Lumbar sympathetic block LEVEL/LATERALITY: left L3 PRE-OPERATIVE DIAGNOSIS: 355.71B CRPS (complex regional pain syndrome), lower limb 719.46 Pain in joint, lower leg POST-OPERATIVE DIAGNOSIS: 355.71B CRPS (complex regional pain syndrome), lower limb 719.46 Pain in joint, lower leg ATTENDING PHYSICIAN: Dale Cantu MANUFACTURING SHIFT SUPERVISOR: Fellow Lakeisha Herring MD ANESTHESIA: sedation delivered [...] sedation. Ms. Farah was escorted to the [facility] Procedure Ro om, where she was [...] compromise. Ms. Farah was transported to the [facility] [...] block. Images were saved, and sent to [employer]. Ms. Farah will have her next appointment [...] + +--------+ + + + | [place] INJECT NERV | Routin | 03/01/2012 | CRPS (complex | | | BLCK,PARAVERT | e | 2:20 PM | regional pain | | | SYMPATH | | PDT | syndrome), lower | | | | | | limb Pain in joint, | | | | | | lower leg | | + +--------+ + + + | [place] LOCM 100-199 | Routin | 03/01/2012 | CRPS (complex | | | MG/MLICON | e | 1:53 PM | regional pain | | | | | PDT | syndrome), lower | | | | | | limb Pain in joint, | | | | | | lower leg | | + +--------+ + + + | [place] INJ BUPIVACAINE | Routin | 03/01/2012 | [...]
--- OUTSIDE RECORDS SUMMARY | ~2020-03-23 | XMS | Encounter Summary ---
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 | CRPS | Janak Martinez MD | [address] | | | | | (complex | [address] | | | | | regional | [address] | Mailcode: | | | | | pain | Mailstop | [facility] | | | | | syndrome), | [id number] | for Health | | | | | lower limb | [place], [place] | and Healing, | | | | | Gait | [address] | Building [address] | | | | | disturbance | Phone: | [place], [place] | | | | | Muscle pain | [phone] | [address] | | | | | Procedures | Fax: | Phone: | | | | | PHYSICAL | [phone] | [phone] | | | | | THERAPY | [...] regional pain | | | | [facility] | [place] [address] | syndrome), lower | | | | [address] | [phone] | limb (Primary Dx) | | | | Mailcode: CH3P | | | | | | [facility] | | | | | | and Healing, | | | | | | [address] | | | | | | Floor [place], [place] | | | | | | [address] | | | | | | [phone] | | | +--------+---------+ + + + [...] might be different f rom the original. [id number] BRODY FARAH Date of : 1990 Start of care: 02/14/2012 Date of onset: 02/14/2012 Referring/Attending Practitioner: Janak Riojas MD . Primary/Referral Diagnosis/ICD-9: 355.71B CRPS (complex regional pain syndrome), lower limb Insurance: Payor: [facility] Plan: BCBS OUT OF STATE Product Type: PP O Service period from: 02/14/2012 to: 08/12/2012 Number visits used/authorized: 01/23 [facility] PHYSICAL THERAPY PROGRESS NOTE SUBJECTIVE: Age: 21 y.o. Sex: female Chief complaint: No chief complaint on file. Current: pt has been doing her neck exercises. She is not shaking as much. Her foot hurts t bruno. Now she is working at [employer] 2-3 hours per week, and spends a [...] change in their status. Guillermo Sanon MSPT [facility] Outpatient Rehabilitation Services Mailcode: Ch3p 330 [facility], [address] [place] [address] documented in this encounter Plan of Treatment Not on filedocumented as of this encounter Procedures + +--------+ + + + | Procedure Name | Priori | Date/Time | Associated Diagnosis | Comments | | | ty | | | | + +--------+ + + + | [place] THERAPEUTIC | Routin | 05/11/2012 | CRPS [...]
--- OUTSIDE RECORDS SUMMARY | ~2020-03-23 | XMS | Encounter Summary ---
Demographics + + + | Address | [address] | | | [place] [address] | + + + | Home Phone [...] Providers + +------+ + | Care Pantograph Engraver Name | Role | Phone | [...] Request (ketamine) | | | | [facility] | [address] | | | | | [address] | [place], [place] | | | | | Mailcode: CH15P | [address] | | | | | [facility] | [phone] | | | | | and Healing, | | | | | | Building | | | | | | [place], [place] | | | | | | [address] | | | | | | [phone] | | | +--------+ + + + [...]
--- OUTSIDE RECORDS SUMMARY | ~2020-03-23 | XMS | Encounter Summary ---
Demographics + + + | Address | [address] | | | [place] [address] | + + + | Home Phone [...] Team Providers + +------+ + | Care Delivery Sales Worker Name | Role | Phone | [...] | | syndrome | [address] [place] | [facility] | | | | | type 1 of | Rd | Rd [place], | | | | | left lower | [place], [place] | [place] | | | | | extremity | [address] | [address] | | | | | Procedures | Phone: | Phone: | | | | | REQUEST TO | [phone] | [phone] | | | | | SURGERY | Fax: | Fax: | | | | | ENDOSCOPY SUPPORT SPECIALIST | [phone] | [phone] | +--------+---------+ + + + + Encounter Details +--------+ + + + + | Date | Type | Department | Care Team | Description | +--------+ + + + + | 12/ | Procedure | Pain Center at [facility] | Alex Sanchez, | Foot pain; Knee | | 2018 | | [address] | ,PhD [address] | pain; Procedure | | | | Mailcode: CH15P | [facility] | | | | | [facility] | [place], [place] | | | | | and Healing, | [address] | | | | | [facility] | [phone] | | | | | Floor [place], [place] | | | | | | [address] | | | | | | [phone] | | | +--------+ + + + [...] Key - 09/25/2018 1:00 PM PST [facility] Patient Instructions - Post Interventional Procedure Date: 09/25/2018 Name: Tracie Farah Date of : 1990 Procedure Performed: SCS DRG TRIAL LUMBAR [facility]. Procedure Provider: Alex Sanchez MD,PhD If you have any problems you believe are associated with your procedure tonight, Please call the Hospital Radiological Engineer, and ask for the Pain Management [...] symptoms, dressing, SCS function, or chills. During ELECTRIC ORGAN ASSEMBLER open ho urs, call the ELECTRIC ORGAN ASSEMBLER ([phone]), after hours call the shale planer operator helper at [facility] ([phone]) and ask for the Adult Pain Service clinic receptionist. Identify yourself as a Comprehensive Pain Center [...] pat ient. Aleta Rebollar MD [facility] Ouhwgeynhmzjpu signed by Sonia Key at 09/25/2018 3:07 PM PST documented in this encounter Progress Notes Alex Sanchez MD,PhD - 09/25/2018 1:00 PM PSTI was present for the entire procedure ( DRG SCS trial) and all bocanegra elements of this visit. I reviewed the documentation of the othe r [facility] providers and concur with Dr. Rebollar's findings. I edited his note. Alex Sanchez MD,PhD Development Intern Anesthesiology and Pain Management [facility] [place], Zain Hale RN - 09/25/2018 1:00 [...] by physician. Concentration is 150mg/mL. Compounded by [facility] ( [phone]) KETOROLAC IM Inject into the muscle (IM). [...] SOLUTION Take as directed by [facility] Digestive [facility]- 2 gallon bowel prep POLYETHYLENE [...] PRE-SEDATION: Date: September 25, 2018 Tracie Farah [id number] 1990 ALLERGIES: Morphine Previous reaction to Sedation/Analgesia: [...] NOTES: Date: September 25, 2018 Tracie Donaldson [facility] [id number] 1990 ALLERGIES: Morphine Previous reaction to Sedation/Analgesia: [...] VS: See Sedation Flow Sheet. Tracie Donaldson [facility] [id number] 1990, presents to clinic for: Procedure: bilateral [...] OPERATIVE NOTE Date: September 25, 2018 Location: [facility] Procedure Room Tracie Donaldson [facility] [id number] :1990, presents to clinic for: PROCEDURE: DRG Spinal Cord Stimuation Trial with [facility] system LEVEL/LATERALITY: left L4, L5 PRE-OPERATIVE DIAGNOSIS: G90.522 Complex regional pain syndrome type 1 of left lower extremity POST-OPERATIVE DIAGNOSIS: G90.522 Complex regional pain syndrome type 1 of left lower extremity ATTENDING PHYSICIAN: Alex Sanchez MD,PhD SORTER LAUNDRY ARTICLES: Fellow Aleta Rebollar ANESTHESIA: Sedation delivered by [...] was escorted to the [facility] Procedure R oom, where she was [...] patient. Ms. Farah was transported to the [facility] Comprehensive Pain Center post-procedure recovery area where she made an uneventful recovery. Programming was performed in the PACU with aid of the device publications sales representative and Ms. Susie faust was sent home with a few programs . This was a unilateral procedure. Alex Sanchez MD,PhD was present for the entire procedure. Images were saved, and sent to [employer]. Ms. Farah was transported to the [facility] Pain Nancy post-procedure recovery area. She had an uneventful [...] PAIN CENTER AT [facility] 15TH FLOOR [address] [facility] Mail Code: [address] [place] [address] documented in t his encounter Plan of Treatment Not on filedocumented as of this encounter Procedures + +--------+ + + + | Procedure Name | Priori | Date/Time | Associated Diagnosis | Comments | | | ty | | | | + +--------+ + + + | [place] MOD SEDATION | Routin | 09/25/2018 | Complex regional | | | >=5YRS SAME MD/QUAL | e | 7:31 PM | pain syndrome type 1 | | | PROV; INIT 15 MIN | | PST | of left lower | | | | | | extremity | | + +--------+ + + + | [place] PERCUT IMPLNT | Routin | 09/25/2018 | [...]
--- OUTSIDE RECORDS SUMMARY | ~2020-03-23 | XMS | Encounter Summary ---
Demographics + + + | Address | [address] | | | [place] [address] | + + + | Home Phone [...] Team Providers + +------+ + | Care Tier Lift Truck Operator Name | Role | Phone [...] Pain Center at | ,PhD [address] [facility] | | | | | [facility] | [address] | | | | | [address] | [facility] [place] | | | | | Mailcode: CH15P | [address] | | | | | [facility] | [phone] | | | | | and [place], | | | | | | Building | | | | | | [place], [place] | | | | | | [address] | | | | | | [phone] | | | +--------+ + + + [...]
--- OUTSIDE RECORDS SUMMARY | ~2020-03-23 | XMS | Encounter Summary ---
Demographics + + + | Address | [address] | | | [place] [address] | + + + | Home Phone [...] Providers + +------+ + | Care Case Advocate Name | Role | Phone | [...] | | | | | unspecified | [facility] | [address] | | | | | location | Rd | [facility] | | | | | Procedures | [place], [place] | Rd [place], | | | | | CONSULT TO | [address] | [place] | | | | | PAIN | | [address] | | | | | MANAGEMENT | | Phone: | | | | | | | [phone] | | | | | | | Fax: | | | | | | | [phone] | +--------+--------+ + + + + Encounter Details +--------+---------+ + + + | Date | Type | Department | Care Team | Description | +--------+---------+ + + + | 05/08/ | Office | [facility] Comprehensive | Alex Sanchez, | Complex regional | | 2018 | Visit | Pain Center at | ,PhD [address] | pain syndrome type 1 | | | | [place] | [facility] [address] | of left lower | | | | [address] | [place], [place] | extremity (Primary | | | | Mailcode: CH15P | [address] | Dx); Pain of upper | | | | [facility] | [phone] | abdomen; Intractable | | | | and Healing, | | cyclical vomiting | | | | Building [address] | | with nausea; | | | | Floor [place], [place] | | Disturbance in sleep | | | | [address] | | behavior; 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 SALES ARCHITECT Brief Pain Inventory: (ten= worst possible pain [...] Hemroidectomy Trial spinal cord stimulator leads 08/02/2012 [facility], Surgeon: Janak Riojas MD Cholecystectomy Appendectomy Other [...] History Social History Narrative Single. Goes to [employer] with a light load. Has been working at [employer], can' t work on [employer]. Has roommates. Allergies Allergen Reactions Morphine Anaphylaxis [...] by physician. Concentration is 150mg/mL. Compounded by [facility] ( [phone]) KETOROLAC IM Inject into the muscle (IM). [...] and summary of old medical records (source: [employer]ology), as summarized in the body of the [...] by Sonia Key. Alex Sanchez MD PhD Soda Worker Anesthesiology and Pain Management [facility] documented in this encounter Plan [...]
--- OUTSIDE RECORDS SUMMARY | ~2020-03-23 | XMS | Encounter Summary ---
Demographics + + + | Address | [address] | | | [place] [address] | + + + | Home Phone [...] Providers + +------+ + | Care Assistant Tennis Professional Name | Role | Phone | [...] | | syndrome), | MEDICINE P | [id number] | | | | | lower limb | [address] | [place], [place] | | | | | Pain in | [place], | [address] | | | | | joint, lower | [place] [address] | Phone: | | | | | leg | Phone: | [phone] | | | | | Procedures | [phone] | Fax: | | | | | REQUEST TO | Fax: | [phone] | | | | | SURGERY | [phone] | | | | | | DELIVERY COORDINATOR | | | +--------+--------+ + + + + Encounter Details +--------+ + + + + | Date | Type | Department | Care Team | Description | +--------+ + + + + | 08/02/ | Procedure | [facility] at [facility] | Dale Cantu, | Procedure; | | 2011 | | [address] | 1956 [facility] | Injection; Procedure | | | | Mailcode: CH15P | [facility] [place] [address] | | | | | [facility] | [place], [place] | | | | | and [place], | [address] | | | | | [facility] | [phone] | | | | | Floor [place], [place] | | | | | | [address] | | | | | | [phone] | | | +--------+ + + + [...] e might be different from the original. [facility] Patient Instructions - Post Spinal Cord Stimulator Trial Date: 08/02/2012 Name: Tracie Farah Date of : 1990 Procedure Performed: SCS TRIAL LUMBAR [facility] Procedure Provider: Dale Cantu [facility] Procedure Rm If you have any problems you believe are associated with your procedure tonight, Please call the Hospital Combination Building Inspector, and ask for the Pain Management Consu ltant. If you have problems or questions between 9:00 am and 4:00 pm, Please call the [facility] Nurse Triage Line, . If you go to an Emergency Room, please bring this form with you. DISCHARGE INSTRUCTIONS Call immediately and/or go to the Emergency department if any concerns about wound healing, fever, or chills. Also call for concerns about SCS function. During [facility] open hours, call the [facility] ([phone]), after hours call the hydraulic lift operator at [facility] ([phone]) and ask for t Adult Pain Service oncology rn. Identify yourself as a [facility] [...] the wounds, dressing, or SCS function. During PLAYER DEVELOPMENT EXECUTIVE o pen hours, call the PLAYER DEVELOPMENT EXECUTIVE ([phone]), after hours call the hydraulic lift operator at [facility] ([phone] ) and ask for the Adult Pain Service oncology rn. Identify yourself as my patient with a concer n about postoperative recovery. If there are concerns about the SCS programming, contact t he risk control field representative from the SCS personal clothing laundry aide. If the stimulation is not covering your [...] and postoperative care instructions. DALE CANTU MD Balloon Artist, [facility] Ruby On Rails Engineer, Pain Medicine Professor, Anesthesiology & Perioperative Medicine Diana Arroyo RN - 08/02/2012 7:34 AM PDT PRE-SEDATION: Date: August 02, 2012 Tracie Farah [id number] 1990 ALLERGIES: Morphine Previous reaction to Sedation/Analgesia: MEDICATIONS: Current Outpatient Prescriptions Medication HYDROcodone-acetaminophen (NORCO) 10-325 mg Oral Tablet KETOROLAC TROMETHAMINE (TORADOL IM) levonorgestrel (MIRENA) 20 mcg/24 hr Intrauterine IUD LORazepam 1 mg Oral Tablet ondansetron (ZOFRAN) 8 mg Oral Tablet promethazine 25 mg Oral Tablet Meets NPO Guidelines. IV ACCESS: IV in Place IV Site [facility] 22 g @ 0655 BASELINE VS: See Sedation Flow Sheet. Tracie Donaldson [facility] [id number] 1990, presents to clinic for: Procedure: Spinal [...] 0732 - 0733: Midazolam 2 [place] [address]: Fentanyl 25 mcg IV 0740 - 0741: Midazolam 2 mg IV 0742: Procedure started 0743 - 0744: Fentanyl 50 mcg IV 0753-54: Fentanyl 25 mcg IV Lead # 1 placed Lead # 2 placed 0801: Stimulation started. 0829: Pt reports stimulation to usual areas of pain. Leads secured. 0845: Pt returned to [facility] per man in stable condition. IV [...] OPERATIVE NOTE Date: August 02, 2012 Location: [facility] Procedure Room Traice Farah [id number] :1990, presents to clinic for: PROCEDURE: Spinal Cord Stimuation Trial LEVEL/LATERALITY: midline lumbar PRE-OPERATIVE DIAGNOSIS: 355.71B CRPS (complex regional pain syndrome), lower limb 719.46 Pain in joint, lower leg 781.2Q Gait disturbance POST-OPERATIVE DIAGNOSIS: 355.71B CRPS (complex regional pain syndrome), lower limb 719.46 Pain in joint, lower leg 781.2Q Gait disturbance ATTENDING PHYSICIAN: Dale Cantu MD DIRECTOR CLIENT SERVICES: Fellow Bear Yost DO ANESTHESIA: sedation delivered [...] sedation. Ms. Farah was escorted to the [facility] Procedure Ro om, where she was positioned Prone on the examination table. TEAM PAUSE: The physician-led pause was conducted, and is documented in the Nursing note. Monitors were placed, including ECG, NIBP and SpO2. The skin was prepared with Chloroprep and sterile drapes were applied. [facility] system was used for this procedure. The company risk control field representative was theresa knutson for the procedure. [...] pain. Ms. Farah was transported to the [facility] post-procedure recovery area where she made an uneventful recovery. Images were saved, and sent to [employer]. Ms. Farah will have her next appointment [...] about wound healing or SCS function. During [facility] open hours, call the [facility] ([phone]), after h ours call the hydraulic lift operator at [facility] ([phone]) and ask for the Adult Pain Service oncology rn. Identify yourself as my patient with a [...] + +--------+ + + + | MS PERCUT IMPLNT | Routin | 08/03/2012 | [...]
--- OUTSIDE RECORDS SUMMARY | ~2020-03-23 | XMS | Encounter Summary ---
Demographics + + + | Address | [address] | | | [place] [address] | + + + | Home Phone [...] Providers + +------+ + | Care Data Integrity Consultant Name | Role | Phone | + +------+ + | Justo Vazquez MD | PCP | | + +------+ + Encounter Details +--------+ + + + + | Date | Type | Department | Care Team | Description | +--------+ + + + + | 05/18/ | Telephone | [facility] | Alex Sanchez, | | | 2019 | | Pain Center at | ,PhD [address] | | | | | [facility] | [facility] [address] | | | | | [address] | [facility] [place] | | | | | Mailcode: CH15P | [address] | | | | | [place] for [facility] | [phone] | | | | | and Healing, | | | | | | | | | | | | Floor [place], [place] | | | | | | [address] | | | | | | [phone] | | | +--------+ + + + [...]
--- OUTSIDE RECORDS SUMMARY | ~2020-03-23 | XMS | Encounter Summary ---
Demographics + + + | Address | [address] | | | [place] [address] | + + + | Home Phone [...] Providers + +------+ + | Care Product Expert Name | Role | Phone | + +------+ + | Justo Vazquez MD | PCP | | + +------+ + Encounter Details +--------+ + + + + | Date | Type | Department | Care Team | Description | +--------+ + + + + | 08/07/ | Telephone | [facility] | Alex Sanchez, | | | 2019 | | Pain Center at | ,PhD [address] | | | | | [facility] | [facility] [address] | | | | | [address] | [facility] [place] | | | | | Mailcode: CH15P | [address] | | | | | [place] for [facility] | [phone] | | | | | and Healing, | | | | | | | | | | | | Floor [place], [place] | | | | | | [address] | | | | | | [phone] | | | +--------+ + + + [...]
--- OUTSIDE RECORDS SUMMARY | ~2020-03-23 | XMS | Encounter Summary ---
Demographics + + + | Address | [address] | | | [place] [address] | + + + | Home Phone [...] Team Providers + +------+ + | Care Stiff Straw Hat Washer Name | Role | Phone | [...] + | 10/07/ | Telephone | [facility] Comprehensive | Yosef Kenney MD | Wound infection | | 2018 | | Pain Center at | [address] | (Concern for DRG | | | | [facility] | [address] [place], | trial wound | | | | [address] | [place] [address] | infection) | | | | Mailcode: CH15P | [phone] | | | | | [facility] | | | | | | and Healing, | | | | | | | | | | | | Floor [place], [place] | | | | | | [address] | | | | | | [phone] | | | +--------+ + + + [...]
--- OUTSIDE RECORDS SUMMARY | ~2020-03-23 | XMS | Encounter Summary ---
Demographics + + + | Address | [address] | | | [place] [address] | + + + | Home Phone [...] Team Providers + +------+ + | Care Enrollment Nurse Name | Role | Phone | [...] | | Pain | Complex | Ilene, AIRPORT RAMP AGENT | Hanna M, | | | | Management | regional | [address] | PSY D [address] | | | | | pain | [address] | [address] | | | | | syndrome | [place], [place] | [place], [place] | | | | | type 1 of | [address] | [address] Phone: | | | | | left lower | Phone: | [phone] | | | | | extremity | [phone] | Fax: | | | | | Intractable | Fax: | [phone] | | | | | cyclical | [phone] | | | | | | vomiting [...] | | | | | | [place] | | | | | | | PSYCHIATRIC | | | | | | | DIAGNOSTIC | | | | | | | EVAL, NO MED | | | | | | | [facility] [place] | | | | | | | PSYCH TSTNG | | | | | | | PSYCH/PHYS | | | | | | | [place] | | | | | | [...] Pain Medicine | Diagnoses | Chasity, | Ehr Trainer Chh1 | | | | / Pain | Abdominal | MD Kenny | [address] | | | | Management | pain, | [address] | [address] | | | | | unspecified | [address] | Mailcode: | | | | | location | Rd | CH15P Center | | | | | Procedures | [place], [place] | for Health | | | | | CONSULT TO | [address] | and Healing, | | | | | PAIN | | Building | | | | | MANAGEMENT | | 1,15th Floor | | | | | | | [place], [place] | | | | | | | [address] | | | | | | | Phone: | | | | | | | [phone] | | | | | | | Fax: | | | | | | | [phone] | +--------+--------+ + + + + Encounter Details +--------+---------+ + + + | Date | Type | Department | Care Team | Description | +--------+---------+ + + + | 04/25/ | Office | [facility] Comprehensive | Ilene Bright, | Abdominal pain, | | 2017 | Visit | Pain Center at | AIRPORT RAMP AGENT [address] | unspecified location | | | | [facility] | [place], [place] | (Primary Dx); | | | | [address] | [address] | Complex regional | | | | Mailcode: CH15P | [phone] | pain syndrome type 1 | | | | [place] for [facility] | | of left lower | | | | and Healing, | | extremity; | | | | | | Intractable cyclical | | | | Floor [place], [place] | | vomiting with | | | | [address] | | nausea; | | | | [phone] | | Constipation, | | | | [...] Adult Pain Service /[facility] [address] [place] [address] documented in this encounter Progress Notes Il[place] Bright FNP - 04/25/2017 1:35 PM PDTFormatting of this note might be different fr om the original. Date: 04/25/2017 was referred for pain management consultation by Kenny Gaspar MD [address] [place] [phone] Reason for consult: abdominal pain Chief Complaint Patient presents with Abdominal pain Back pain History of Present Illness: Tracie Farah is a 26 year old female with a history of depression, complex regional pain syndrome (left lower extremity) for this she follows with a neurologist at [facility] in [facility]. She has been stable on her [...] (works better) Just started her on Celebrex ([place] [facility] option) Intranasal ketamine Lamotrigine Memantine Ibuprofen Cymbalta 20 mg BID Cyclobenzaprine Her nonmedication treatment has not included acupuncture, etc due to limited income. She feels that the most effective treatments include: medication (toradol). lives in [place], [place] alone and with her children. She receives disability. does not have specific goals for today's appointment. [facility] QUESTIONNAIRE BRIEF PAIN 04/24/2017 Please rate how [...] has interfered with your sleep : 8 [facility] New Patient Questionnaire Responses 04/24/2017 What is [...] or to get rid of a hangover (eye-inspector rough castings)? No Do you drink alcohol to decrease [...] History Social History Narrative Single. Goes to [employer] with a light load. Has been working at [employer], can' t work on [employer]. Has roommates. Allergies Allergen Reactions Morphine Anaphylaxis [...] by physician. Concentration is 150mg/mL. Compounded by [facility] ) LAMOTRIGINE 200 MG TABLET Take [...] ENTEROGRAPHY ABDOMEN AND PELVIS WWO CONTRAST Order: [id number] Performed: 01/31/2017 4:34 PM Status: Final result [...] 3:50 PM X-RAY ABDOMEN 1 VIEW Order: [id number] Performed: 03/19/2017 6:52 AM Status: Final result [...] and summary of old medical records (source: [employer]), as summarized in the body of the [...] possible opioid-sparing effects (Stevie Torres. et al.C Vivartes, (8):1655-70, 2007) and evidence that it can [...] MD [email or web address] Central sensitization Ilene Childs DNP, AIRPORT RAMP AGENT-C Adult Pain [facility] [address] [place] [address] Display Progress Note in MyChart: No documented [...]
--- OUTSIDE RECORDS SUMMARY | ~2020-03-23 | XMS | Encounter Summary ---
Demographics + + + | Address | [address] | | | [place] [address] | + + + | Home Phone [...] Team Providers + +------+ + | Care Higher Level Teaching Assistant Name | Role | Phone | [...] with nausea | [address] | Rd [place], | | | | | Complex | Rd | [place] | | | | | regional | [place], [place] | [address] | | | | | pain | [address] | Phone: | | | | | syndrome | Phone: | [phone] | | | | | type 1 of | [phone] | Fax: | | | | | left lower | Fax: | [phone] | | | | | extremity | [phone] | | | | | | Procedures [...] | | | | | unspecified | [facility] | [address] | | | | | location | Rd | [facility] | | | | | Procedures | [place], [place] | Rd [place], | | | | | CONSULT TO | [address] | [place] | | | | | PAIN | | [address] | | | | | MANAGEMENT | | Phone: | | | | | | | [phone] | | | | | | | Fax: | | | | | | | [phone] | +--------+--------+ + + + + Encounter [...] | | [facility] | [address] | nausea (Primary Dx); | | | | [address] | [place], [place] | Complex regional | | | | Mailcode: CH15P | [address] | pain syndrome type 1 | | | | [place] [facility] | [phone] | of left lower | | | | and Healing, | | extremity | | | | Building | | | | | | Floor [facility] [place] | | | | | | [address] | | | | | | [phone] | | | +--------+---------+ + + + [...] might be differe nt from the original. [facility] Center Return Visit Date: 04/20/2018 Chief Complaint Patient presents with Abdominal pain Back pain Pain in left leg History of Present Illness: Tracie Farah is a 27 year old female, whose last appoi ntment at the [facility] was 12/27/2017, for [...] not help for the abdominal pain). 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 Goes to [employer] with a light load. Has been working at [employer], can' t work on [email or web address]. Has roommates. Allergies Allergen Reactions Morphine Anaphylaxis [...] by physician. Concentration is 150mg/mL. Compounded by [facility] ) KETOROLAC IM Inject into the [...] to her by Christie Madrid MD in [place], [place]. As she chowdhury s since left the practice, Ms. Farah no longer has a prescriber for this medication. At [facility], we typically do not provide [...] unclear etiology. She presents to the ER [facility], and is greatly helped by Toradol, antiemetics [...] Alex Sanchez MD,PhD [facility] 3 :41 PM Charline [...]
--- OUTSIDE RECORDS SUMMARY | ~2020-03-23 | XMS | Encounter Summary ---
Demographics + + + | Address | [address] | | | [place] [address] | + + + | Home Phone [...] Team Providers + +------+ + | Care Rattan Worker Name | Role | Phone | [...] | | | regional | [place] | [address] | | | | | pain | FAMILY | Mailstop | | | | | syndrome), | MEDICINE P | [address] | | | | | lower limb | [address] | [place], [place] | | | | | Pain in | [place], | [address] | | | | | joint, lower | [place] [address] | Phone: | | | | | leg | Phone: | [phone] | | | | | Procedures | [phone] | Fax: | | | | | REQUEST TO | Fax: | [phone] | | | | | SURGERY | [phone] | | | | | | SADDLE STITCH OPERATOR | | | +--------+--------+ + + [...] | | | 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 | FAMILY | [address]stop | | | | | of lower | MEDICINE P | [address] | | | | | limb | [address] | [place], [place] | | | | | | [place], | [address] | | | | | | [place] [address] | Phone: | | | | | | Phone: | [phone] | | | | | | [phone] | Fax: | | | | | | Fax: | [phone] | | | | | | [phone] | | +--------+--------+ + + + + Encounter Details +--------+---------+ + + + | Date | Type | Department | Care Team | Description | +--------+---------+ + + + | 06/06/ | Office | [facility] Comprehensive | Dale Cantu, | CRPS (complex | | 2011 | Visit | Pain Center at | MD [address] [facility] | regional pain | | | | [facility] | [facility] [address] | syndrome), lower | | | | [address] | [place], [place] | limb; Pain in joint, | | | | Mailcode: CH15P | [address] | lower leg | | | | [facility] | [phone] | | | | | and Healing, | | | | | | | | | | | | Floor [place], [place] | | | | | | [address] | | | | | | [phone] | | | +--------+---------+ + + + [...] make sure this is scheduled with the Access Control Officer. Please bring a cement truck driver with you. We may give you medications that make you drowsy or otherw ise unsafe to drive. If you do not have a cement truck driver, we will not be able [...] PLEASE CONTACT THE COMPREHENSIVE PAIN CENTER AT [phone] ([phone]) FOR QUESTIONS OR IF YOU NEED TO CANCEL YOUR APPOINTMENT. [facility] documented in [...] not signed. Given information. DALE CANTU MD Roofer, [facility] Mercantile Agent, Pain Medicine Professor, Anesthesiology & Perioperative Medicine ollHomer manriquez MD - 06/06/2012 11:17 AM PDT [facility] Return [...] The Review of Systems obtained by the DIRECTOR TRUST was reviewed. Additional Review of Systems: Bones, [...] up with Dr. Dale Cantu at the [facility] today for left foot CRPS which [...] therapy Homer Elaine MD Pain Medicine Fellow [facility] Pain Taiban Evelia Parsons - 11:07 AM PDTCMA History: [...]
--- OUTSIDE RECORDS SUMMARY | ~2020-03-23 | XMS | Encounter Summary ---
Demographics + + + | Address | [address] | | | [place] [address] | + + + | Home Phone [...] Providers + +------+ + | Care Inspector Machined Parts Name | Role | Phone | + [...] | Documentati | KEVIN YANEZ at [facility] | Lab, Gi Procedure | Medical Records | | 2015 | on | [address] | | Review | | | | [address] Mailcode: | | | | | | [facility] | | | | | | Health and Healing, | | | | | | Building [address] | | | | | | [place], [place] | | | | | | [address] | | | | | | [phone] | | | +--------+ + + + [...]
--- OUTSIDE RECORDS SUMMARY | ~2020-03-23 | XMS | Encounter Summary ---
Demographics + + + | Address | [address] | | | [place] [address] | + + + | Home Phone [...] Team Providers + +------+ + | Care Sr. Manager Corporate Communications Name | Role | Phone | + [...] | | Pain Center at | ,PhD [address] [facility] | sig) | | | | [facility] | [facility] | | | | | [address] | [facility] [place] | | | | | Mailcode: CH15P | [address] | | | | | [facility] | [phone] | | | | | and [place]ina, | | | | | | Building | | | | | | [place], [place] | | | | | | [address] | | | | | | [phone] | | | +--------+ + + + [...]
--- OUTSIDE RECORDS SUMMARY | ~2020-03-23 | XMS | Encounter Summary ---
Demographics + + + | Address | [address] | | | [place] [address] | + + + | Home Phone [...] Providers + +------+ + | Care Patient Advocate Name | Role | Phone | [...] enterography | | 2017 | Encounter | [place] [facility] [address] | | results | | | | [address] | | | | | | Mailcode: [place] | | | | | | [facility] Health and | | | | | | Healing, Building [address] | | | | | | [place], [place] | | | | | | [address] | | | | | | [phone] | | | +--------+ + + + [...]
--- OUTSIDE RECORDS SUMMARY | ~2020-03-23 | XMS | Encounter Summary ---
Demographics + + + | Address | [address] | | | [place] [address] | + + + | Home Phone [...] Providers + +------+ + | Care Soap Maker Name | Role | Phone | [...] Pharmacy | | | | | | [address] | | | | | | Loop [place], [place] | | | | | | [address] | | | | | | [phone] | | | +--------+ + + + [...]
--- OUTSIDE RECORDS SUMMARY | ~2020-03-23 | XMS | Encounter Summary ---
Demographics + + + | Address | [address] | | | [place] [address] | + + + | Home Phone [...] Providers + +------+ + | Care School Lunch Monitor Name | Role | Phone | + +------+ + | Justo Vazquez MD | PCP | | + +------+ + Encounter Details +--------+ + + + + | Date | Type | Department | Care Team | Description | +--------+ + + + + | 08/03/ | Telephone | [facility] | Alex Sanchez, | | | 2018 | | Pain Center at | ,PhD [address] | | | | | [facility] | [facility] | | | | | [address] | [facility] [place] | | | | | Mailcode: CH15P | [address] | | | | | [place] for [facility] | [phone] | | | | | and Healing, | | | | | | | | | | | | Floor [place], [place] | | | | | | [address] | | | | | | [phone] | | | +--------+ + + + [...]
--- OUTSIDE RECORDS SUMMARY | ~2020-03-23 | XMS | Encounter Summary ---
Demographics + + + | Address | [address] | | | [place] [address] | + + + | Home Phone [...] Team Providers + +------+ + | Care Analytical Lead Name | Role | Phone | [...] | [facility] | Aleta Rebollar MD [address] | Nausea | | 2018 | | Pain Center at | [address] | | | | | [facility] | [place], [place] | | | | | [address] | [address] | | | | | Mailcode: CH15P | [phone] | | | | | [facility] | | | | | | joana Mack, | | | | | | [facility] | | | | | | [place], [place] | | | | | | [address] | | | | | | [phone] | | | +--------+ + + + [...]
--- OUTSIDE RECORDS SUMMARY | ~2020-03-23 | XMS | Encounter Summary ---
Demographics + + + | Address | [address] | | | [place] [address] | + + + | Home Phone [...] Team Providers + +------+ + | Care Brokerage Coordinator Name | Role | Phone | + +------+ + | Justo Vazquez MD | PCP | | + +------+ + Encounter Details +--------+ + + + + | Date | Type | Department | Care Team | Description | +--------+ + + + + | 03/17/ | MyChart | [facility] Ilene | Yun Frey NP | Welcome | | 2017 | Encounter | Pain Center at | [address] | | | | | [facility] | [place], [place] | | | | | [address] | [address] | | | | | Mailcode: CH15P | [phone] | | | | | [place] for [facility] | | | | | | and Healing, | | | | | | | | | | | | Floor [place], [place] | | | | | | [address] | | | | | | [phone] | | | +--------+ + + + [...]
--- OUTSIDE RECORDS SUMMARY | ~2020-03-23 | XMS | Encounter Summary ---
Demographics + + + | Address | [address] | | | [place] [address] | + + + | Home Phone [...] Team Providers + +------+ + | Care Gin Feeder Name | Role | Phone | [...] | | | [address] | [facility] Joel | | | | | [place], [place] | [place], [place] | | | | | [address] | [address] | | | | | | [phone] | | | | | | | [...] | + +--------+ + + + | TECHNICAL ADMINISTRATOR MISC PROCEDURE | Routin | 12/27/2017 | Complex regional | Results for this | | | e | 3:28 PM | pain syndrome type 1 | procedure are in the | | | | PST | of left lower | results section. | | | | | extremity | | + +--------+ + + + documented in this encounter Results [facility] MISC PROCEDURE (12/27/2017 3:28 PM PST) [...]
--- OUTSIDE RECORDS SUMMARY | ~2020-03-23 | XMS | Encounter Summary ---
Demographics + + + | Address | [address] | | | [place] [address] | + + + | Home Phone [...] + +------+ + | Care Computer Systems Hardware Analyst Name | Role | Phone | + +------+ + | Justo Vazquez MD | PCP | | + +------+ + Encounter Details +--------+ + + + + | Date | Type | Department | Care Team | Description | +--------+ + + + + | 01/02/ | Telephone | [facility] | Ilene Bright, | | | 2019 | | Pain Center at | HORSE SHOW MANAGER [address] | | | | | [facility] | [place], [place] | | | | | [address] | [address] | | | | | Mailcode: CH15P | [phone] | | | | | [facility] | | | | | | and Healing, | | | | | | | | | | | | Floor [place], [place] | | | | | | [address] | | | | | | [phone] | | | +--------+ + + + [...]
--- OUTSIDE RECORDS SUMMARY | ~2020-03-23 | XMS | Encounter Summary ---
Demographics + + + | Address | [address] | | | [place] [address] | + + + | Home Phone [...] Team Providers + +------+ + | Care Transport Coordinator Name | Role | Phone | + +------+ + | Justo Vazquez MD | PCP | | + +------+ + Encounter Details +--------+ + + + + | Date | Type | Department | Care Team | Description | +--------+ + + + + | 07/28/ | Documentati | [facility] Comprehensive | [place] Bright, | | | 2017 | on | Pain Center at | GEOSCIENCE SPECIALIST [address] | | | | | [facility] | [place], [place] | | | | | [address] | [address] | | | | | Mailcode: CH15 | [phone] | | | | | [place] for [facility] | | | | | | and Healing, | | | | | | | | | | | | Floor [place], [place] | | | | | | [address] | | | | | | [phone] | | | +--------+ + + + [...]
--- OUTSIDE RECORDS SUMMARY | ~2020-03-23 | XMS | Encounter Summary ---
Demographics + + + | Address | [address] | | | [place] [address] | + + + | Home Phone [...] Providers + +------+ + | Care Power Builder Developer Name | Role | Phone | [...] | | syndrome | [place] | [facility] | | | | | type [address] of | [address] | Rd [place], | | | | | left lower | [place], [place] | [place] | | | | | extremity | [address] | [address] | | | | | Procedures | Phone: | Phone: | | | | | REQUEST TO | [phone] | [phone] | | | | | SURGERY | Fax: | Fax: | | | | | FOWL BLOOD TESTER | [phone] | [phone] | +--------+---------+ + + + + Encounter Details +--------+ + + + + | Date | Type | Department | Care Team | Description | +--------+ + + + + | 12/ | Procedure | Pain Center at [facility] | Alex Sanchez, | Foot pain; Knee | | 2018 | | [address] | ,PhD [address] | pain; Procedure | | | | Mailcode: CH15P | [facility] | | | | | [facility] | [place], [place] | | | | | and Healing, | [address] | | | | | [facility] | [phone] | | | | | Floor [place], [place] | | | | | | [address] | | | | | | [phone] | | | +--------+ + + + [...] your procedure tonight, Please call the Hospital Cut Out Stitcher, and ask for the Pain Management Consu ltant. If you have problems or questions between 9:00 am and 4:00 pm, Please call the [facility] Pain Center Nurse Triage Line, [...] symptoms, dressing, SCS function, or chills. During EQUIPMENT OPERATOR INTERMODAL YARD open ho urs, call the EQUIPMENT OPERATOR INTERMODAL YARD ([phone]), after hours call the screen operator at [facility] ([phone]) and ask for the Adult Pain Service motion picture film examiner. Identify yourself as a Comprehensive Pain Center [...] to the pat ient. Aleta Rebollar MD [facility] Comprehensive Pain Center Ryeoujrunobihx signed by Sonia Key at 09/25/2018 3:07 PM PST documented in this encounter Progress Notes Alex Sanchez MD,PhD - 09/25/2018 1:00 PM PSTI was present for the entire procedure ( DRG SCS trial) and all bocanegra elements of this visit. I reviewed the documentation of the othe r [facility] providers and concur with Dr. Rebollar's findings. I edited his note. Alex Sanchez MD,PhD Phlebotomist Supervisor/Instructor Anesthesiology and Pain Management Replaced By [facility] [place] onacier, Zain Hale RN - 09/25/2018 1:00 [...] by physician. Concentration is 150mg/mL. Compounded by [facility] ) KETOROLAC IM Inject into the [...] as directed by [facility] Digestive [facility]- 2 gallon bowel prep POLYETHYLENE [...] PRE-SEDATION: Date: September 25, 2018 Tracie Farah [id number] 1990 ALLERGIES: Morphine Previous reaction to Sedation/Analgesia: [...] NOTES: Date: September 25, 2018 Tracie Donaldson [facility] [id number] 1990 ALLERGIES: Morphine Previous reaction to Sedation/Analgesia: [...] VS: See Sedation Flow Sheet. Tracie Donaldson [facility] [id number] 1990, presents to clinic for: Procedure: bilateral [...] OPERATIVE NOTE Date: September 25, 2018 Location: [facility] Procedure Room Tracie Donaldson [facility] [id number] :1990, presents to clinic for: PROCEDURE: DRG Spinal Cord Stimuation Trial with [facility] SP Materials system LEVEL/LATERALITY: left L4, L5 PRE-OPERATIVE DIAGNOSIS: G90.522 Complex regional pain syndrome type 1 of left lower extremity POST-OPERATIVE DIAGNOSIS: G90.522 Complex regional pain syndrome type 1 of left lower extremity ATTENDING PHYSICIAN: Alex Sanchez MD,PhD JET ENGINE MECHANIC: Fellow Aleta Rebollar ANESTHESIA: Sedation delivered by [...] to the [facility] Procedure R oom, where she [...] patient. Ms. Farah was transported to the [facility] Comprehensive Pain Center post-procedure recovery area where she made an uneventful recovery. Programming was performed in the PACU with aid of the device cash posting representative and Ms. Susie faust was sent home with a few programs . This was a unilateral procedure. Alex Sanchez MD,PhD was present for the entire procedure. Images were saved, and sent to ufindads. Ms. Farah was transported to the [facility] post-procedure recovery area. She had an uneventful recovery. Before the procedure, Ms. Farah's pain was 7/10. After the procedure Ms. Farah's pain was 7/10. I, Sonia Key, am functioning as a scribe for Aleta Reobllar MD. I have reviewed and verified the above scribed note of my visit with this patient as record ed by Sonia Key. Aleta Rebollar MD PAIN CENTER AT [facility] 15TH FLO[address] [facility] Mail Code: [address] [place] [address] documented in t his encounter [...]
--- OUTSIDE RECORDS SUMMARY | ~2020-03-23 | XMS | Encounter Summary ---
Demographics + + + | Address | [address] | | | [place] [address] | + + + | Home Phone [...] Team Providers + +------+ + | Care Command Post Superintendent Name | Role | Phone | + +------+ + | Justo Vazquez MD | PCP | | + +------+ + Encounter Details +--------+ + + + + | Date | Type | Department | Care Team | Description | +--------+ + + + + | 09/25/ | Hospital | Radiology/Imaging | Aleta Rebollar MD 2741 | | | 2018 | Encounter | Lab at [facility] [address] | [address] | | | | | [address] Mailcode: | [place], [place] | | | | | [address] | [address] | | | | | Health and Healing, | [phone] | | | | | [facility] | | | | | | Floor [place], [place] | | | | | | [address] | | | | | | [phone] | | | +--------+ + + + [...]
--- OUTSIDE RECORDS SUMMARY | ~2020-03-23 | XMS | Encounter Summary ---
Demographics + + + | Address | [address] | | | [place] [address] | + + + | Home Phone [...] Team Providers + +------+ + | Care Community Midwife Name | Role | Phone | [...] at | | | | | | [address] | | | | | | [address] | | | | | | [place], | | | | | | [address] [place] [address], | | | | | | [place] [address] | | | | | | [phone] | | | +--------+ + + + [...]
--- OUTSIDE RECORDS SUMMARY | ~2020-03-23 | XMS | Encounter Summary ---
Demographics + + + | Address | [address] | | | [place] [address] | + + + | Home Phone [...] Providers + +------+ + | Care Hand Ii Thermal Cutter Name | Role | Phone | + +------+ + | Justo Vazquez MD | PCP | | + +------+ + Encounter Details +--------+------+ + + + | Date | Type | Department | Care Team | Description | +--------+------+ + + + | 04/23/ | Lab | Laboratory at [facility] | | Other chronic pain ; | | 2018 | | [address] | | Complex regional | | | | [place], [place] | | pain syndrome type 1 | | | | [address] | | of left lower | | | | [phone] | | extremity | +--------+------+ + + [...] BLANCAYG SHAH | [address] | [place] [address] | | | SERVICES, LILLIAN | GUILLERMO [...]
--- OUTSIDE RECORDS SUMMARY | ~2020-03-23 | XMS | Encounter Summary ---
Demographics + + + | Address | [address] | | | [place] [address] | + + + | Home Phone [...] Team Providers + +------+ + | Care Slicing Machine Feeder Name | Role | Phone [...] Oliveira | | 2011 | IP | [address] | | House - Approved | | | | [place], | | | | | | [place] [address] | | | +--------+ + + + [...]
--- OUTSIDE RECORDS SUMMARY | ~2020-03-23 | XMS | Encounter Summary ---
Demographics + + + | Address | [address] | | | [place] [address] | + + + | Home Phone [...] Providers + +------+ + | Care Studio Designer Name | Role | Phone | [...] | 08/03/ | Refill | [facility] Comprehensive | Alex Sanchez, | Refill Request | | 2018 | | Pain Center at | ,PhD [address] [facility] | (ketamine) | | | | [facility] | [facility] | | | | | [address] | [place], [place] | | | | | Mailcode: CH15P | [address] | | | | | [facility] | [phone] | | | | | and Healing, | | | | | | Building | | | | | | Floor [place], [place] | | | | | | [address] | | | | | | [phone] | | | +--------+--------+ + + + [...]
--- OUTSIDE RECORDS SUMMARY | ~2020-03-23 | XMS | Encounter Summary ---
Demographics + + + | Address | [address] | | | [place] [address] | + + + | Home Phone [...] Team Providers + +------+ + | Care Foot Setter Name | Role | Phone | [...] | | | | regional | ,PhD [address] | | | | | | pain | [address] | | | | | | syndrome | [address] | | | | | | type [address] of | Rd | | | | | | left lower | [place], [place] | | | | | | extremity | [address] | | | | | | Procedures | Phone: | | | | | | PHYSICAL | [phone] | | | | | | THERAPY | Fax: | | | | | | REFERRAL | [phone] | | +--------+--------+ + + + + Encounter Details +--------+ + + + + | Date | Type | Department | Care Team | Description | +--------+ + + + + | 01/22/ | Telephone | [facility] | Alex Sanchez, | | | 2019 | | Pain Center at | ,PhD [address] [facility] | | | | | [facility] | [facility] | | | | | [address] | [place], [place] | | | | | Mailcode: CH15P | [address] | | | | | [facility] | [phone] | | | | | and Healing, | | | | | | | | | | | | [place], [place] | | | | | | [address] | | | | | | [phone] | | | +--------+ + + + [...]
--- OUTSIDE RECORDS SUMMARY | ~2020-03-23 | XMS | Encounter Summary ---
Demographics + + + | Address | [address] | | | [place] [address] | + + + | Home Phone [...] Providers + +------+ + | Care Manager Protein Name | Role | Phone | + [...] [address] | | | | | [facility] | [address] | | | | | [address] | [place], [place] | | | | | Mailcode: CH15P | [address] | | | | | [facility] | [phone] | | | | | and [address], | | | | | | Building | | | | | | Floor [place], [place] | | | | | | [address] | | | | | | [phone] | | | +--------+--------+ + + + [...]
--- OUTSIDE RECORDS SUMMARY | ~2020-03-23 | XMS | Encounter Summary ---
Demographics + + + | Address | [address] | | | [place] [address] | + + + | Home Phone [...] + +------+ + | Care Heavy Equipment Engine Mechanic Name | Role | Phone | [...] Diagnoses | Beulah | Edu Pt Scale Balancer | | | | Therapy | CRPS | Janak Martinez MD | [address] | | | | | (complex | [address] | | | | | regional | [address] | Mailcode: | | | | | pain | Mailstop | [facility] Center | | | | | syndrome), | [id number] | for Health | | | | | lower limb | [place], [place] | and Healing, | | | | | Gait | [address] | Building [address] | | | | | disturbance | Phone: | [place], [place] | | | | | Muscle pain | [phone] | [address] | | | | | Procedures | Fax: | Phone: | | | | | PHYSICAL | [phone] | [phone] | | | | | THERAPY | [...] regional pain | | | | [facility] | [place] [address] | syndrome), lower | | | | [address] | [phone] | limb (Primary Dx) | | | | Mailcode: CH3P | | | | | | [facility] | | | | | | and Healing, | | | | | | [address] | | | | | | Floor [place], [place] | | | | | | [address] | | | | | | [phone] | | | +--------+---------+ + + + [...] might be different f rom the original. [id number] BRODY FARAH Date of : 1990 Start of care: 02/14/2012 Date of onset: 02/14/2012 Referring/Attending Practitioner: Janak Riojas MD . Primary/Referral Diagnosis/ICD-9: 355.71B CRPS (complex regional pain syndrome), lower limb Insurance: Payor: [facility] Plan: BCBS OUT OF STATE [...] t bruno. Now she is working at [employer] 2-3 hours per week, and spends a [...] HEALTH CENTER Outpatient Rehabilitation Services Mailcode: Ch3p [address] [facility], [address] [place] [address] documented in this encounter Plan of Treatment Not on filedocumented as of this encounter Procedures + +--------+ + + + | Procedure Name | Priori | Date/Time | Associated Diagnosis | Comments | | | ty | | | | + +--------+ + + + | [place] THERAPEUTIC | Routin | 05/11/2012 | CRPS [...]
--- OUTSIDE RECORDS SUMMARY | ~2020-03-23 | XMS | Clinical Summary ---
Demographics + + + | Address | [address] | | | [place] [address] | + + + | Home Phone | | + + + | Preferred Language | Unknown | + + + | Marital Status | Single | + + + | Temple Affiliation | 1013 | + + + | Race | Unknown | + + + | Ethnic Group | Unknown | + + + Author + + + | Author | [employer] [facility] (Historical as of | | | 06-30-19) | + + + | Organization | [facility] (Historical as of | | | 06-30-19) [...] Team Providers + +------+ + | Care Count Room Clerk Name | Role | Phone | [...] since. She has undergone extensive therapy at [facility] | | [facility] at pain clinics in [place] as well and | | [place], [place]. She has had sympathetic nerve blocks [...] +------+-------+ + | MEDICARE | MEDICA | [id number] | | | [address] | | | RE | | | | [place] [address] | | | IP-OP | | | | | + +--------+ +------+-------+ + | PREMERA | PREMER | [id number] | | | [address] [address] | | | A BLUE | 3 | | | [place], [place] | | | CARD | | | | [address] | + +--------+ +------+-------+ + | MEDICAID | [place] | [id number] | | | [address] | | | CARE | | | | [place] | | | [place] | | | | [address] | + +--------+ +------+-------+ + + +--------+ [...] | | al/Fam | | 1989 | [phone] | [place], [place] | | | evita | | | [phone] | [address] | + +--------+ +--------+ + +
--- OUTSIDE RECORDS SUMMARY | ~2020-03-23 | XMS | Encounter Summary ---
Demographics + + + | Address | [address] | | | [place] [address] | + + + | Home Phone [...] Team Providers + +------+ + | Care Winder Tender Name | Role | Phone | [...] 09/14/ | Telephone | [facility] Comprehensive | Alex Sanchez, | Education procedure | | 2018 | | Pain Center at | ,PhD [address] | (preprocedure | | | | [facility] | [facility] [address] | education SCS) | | | | [address] | [place], [place] | | | | | Mailcode: CH15P | [address] | | | | | [facility] | [phone] | | | | | and [address], | | | | | | | | | | | | Floor [place], [place] | | | | | | [address] | | | | | | [phone] | | | +--------+ + + + [...]
--- OUTSIDE RECORDS SUMMARY | ~2020-03-23 | XMS | Encounter Summary ---
Demographics + + + | Address | [address] | | | [place] [address] | + + + | Home Phone [...] Providers + +------+ + | Care Supervisor International Reservations Name | Role | Phone | [...] | | | sympathetic | [place] | [address]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 | FAMILY | Mailstop | | | | | of lower | MEDICINE P | [address] | | | | | limb | [address] | [place], [place] | | | | | | [place], | [address] | | | | | | [place] [address] | Phone: | | | | | | Phone: | [phone] | | | | | | [phone] | Fax: | | | | | | Fax: | [phone] | | | | | | [phone] | | +--------+--------+ + + + + Encounter Details +--------+---------+ + + + | Date | Type | Department | Care Team | Description | +--------+---------+ + + + | 08/04/ | Office | [facility] Comprehensive | Dale Cantu, | CRPS (complex | | 2011 | Visit | Pain Center at | MD [address] [facility] | regional pain | | | | [facility] | [facility] [address] | syndrome), lower | | | | [address] | [place], [place] | limb (Primary Dx) | | | | Mailcode: CH15P | [address] | | | | | [facility] | [phone] | | | | | and Healing, | | | | | | Building | | | | | | Floor [place], [place] | | | | | | [address] | | | | | | [phone] | | | +--------+---------+ + + + [...] this encounter Patient Instructions Patient Instructions Dale Catnu MD - 08/04/2012 3:32 PM PDT1. No Hot tub or bath to day, OK to shower. 2. Come see me in a few weeks, we can discuss other options. I am sorry this was not a good treatment for you documented in this encounter Progress Notes Dale Cantu MD - 08/07/2012 3:12 PM PDTI saw and evaluated the patient with Fellow Nhan Guo [facility], who conducted the initial history. I reviewed the history in det ail and edited his note. I was present for the examination and formulation portions of the encounter. I agree with the findings and the plan of care as documented in our notes. DALE CANTU MD Hospice Entrance Attendant, Comprehensive Pain Center Supervisor Cell Efficiency, Pain Medicine Professor, Anesthesiology & Perioperative Medicine [...] physical activity and social withdrawal enok Gutierrez, [facility] - 08/04/2012 7:25 AM PDTFormatting of this note might be different from the [facility] Return Visit with Dr. [...] has been treated at the Comprehensive [facility] for lower limb pain with the following [...] and a pain drawing which I reviewed. [facility] Brief Pain Inventory: (ten= worst possible [...] Review of Systems obtained by the [facility] was reviewed. Additional Review of Systems: 1. [...] multiple programs with both [facility] programs, however it appears that it [...] bath today, OK to shower. HENOK GUO, [facility] documented in this en counter Plan of Treatment Not on filedocumented as of this encounter Visit Diagnoses + + | Diagnosis | + + | CRPS (complex regional pain syndrome), lower limb - Primary Causalgia of lower limb | + + documented in this encounter
--- OUTSIDE RECORDS SUMMARY | ~2020-03-23 | XMS | Encounter Summary ---
Demographics + + + | Address | [address] | | | [place] [address] | + + + | Home Phone [...] Team Providers + +------+ + | Care Fender Mechanic Name | Role | Phone | [...] | | | | | extremity | [address] | [address] | | | | | Muscle pain | Phone: | Phone: | | | | | Procedures | [phone] | [phone] | | | | | REQUEST TO | Fax: | Fax: | | | | | SURGERY | [phone] | [phone] | | | | | AIRCRAFT ENGINE TECHNICIAN | | | | | | [...] 12/27/ | Procedure | Pain Center at [facility] | Alex Sanchez, | Pain in left leg; | | 2017 | | [address] | ,PhD 3[address] [facility] | Procedure | | | | Mailcode: CH15P | [facility] | | | | | [place] [facility] | [place], [place] | | | | | and Healing, | [address] | | | | | | [phone] | | | | | [place], [place] | | | | | | [address] | | | | | | [phone] | | | +--------+ + + + [...] mi nayelit be different from the original. [facility] Patient Instructions - Post Interventional Procedure Date: 12/27/2017 Name: Tracie Farah Date of : 1990 Procedure Performed: trigger point injection and popliteal/sciatic block. Procedure Provider: Alex Sanchez MD,PhD If you have any problems you believe are associated with your procedure tonight, Please call the Hospital Gluer Machine Setup Operator, and ask for the Pain Management Consu ltant. If you have problems or questions between 9:00 am and 4:00 pm, Please call the [facility] Nurse Triage Line, . If [...] paper. Please fax the pain diary to [phone] or attach a scanned image of it to a [employer] message to your doct or.. The area [...] to the larry ent. David Linares MD [facility] Pain Center documented in this encounter Progress Notes Alex Sanchez MD,PhD - 12/27/2017 3:00 PM PSTI was present for the entire procedure ( popliteal nerve block and abdominal scar neuroma injection) and all bocanegra elements of this vis it. I reviewed the documentation of the other [facility] providers and concur with Dr. Linares's findings. I edited his note. Alex Sanchez MD,PhD [facility]acker Anesthesiology and Pain Management [facility] [place] David Pennington MD - 12/27/2017 3:00 PM PSTPROVICHIOMA OPERATIVE NOTE Date: December 27, 2017 Location: [facility] Procedure Room Tracie Farah [id number] :1990, presents to clinic for: PROCEDURE: Popliteal/sciatic [...] scar neuroma ATTENDING PHYSICIAN: Alex Sanchez MD,PhD STATIONARY PLANT OPERATORS: Fellow David Linares MD ANESTHESIA: sedation Isadora [...] procedure, we had a PARQ discussion with Tracei Farah, and she gave w ritten consent for procedure and sedation. Ms. Farah was escorted to the [facility] Procedure R oom, where she [...] procedure. Images were saved, and sent to [employer]. Ms. Farah was transported to the [facility] Pain Center post-procedure recovery area. [...] by physician. Concentration is 150mg/mL. Compounded by [facility] ) LEVONORGESTREL 20 MCG/24 HR (5 [...] GRAM-5.86 GRAM SOLUTION Take as directed by [facility]- 2 gallon bowel prep POLYETHYLENE [...] PRE-SEDATION: Date: December 27, 2017 Tracie Farah [id number] 1990 ALLERGIES: Morphine Previous reaction to Sedation/Analgesia: [...] PRE-SEDATION: Date: December 27, 2017 Tracie Farah [id number] 1990 See RN /ZOFIA Pre-Sedation Note. IV ACCESS:Right subc PAC. BASELINE VS: See Sedation Flow Sheet. Tracie Ocampojulita Farah [id number] 1990, presents to clinic for: Procedure: left [...] started. 1530 Midazolam 2mg IV given 1530 Ortztmff444 mcg IV given 1534 Midazolam 1mg IV given 1546 Midazolam 1mg IV given 1546 Pyfsjric937 mcg IV given 1548 Fentanyl 100 mcg IV given bupivacaine 0.5%, 9mL given, 21mL wasted Kenalog 40mg/mL 1mL, 0 mL wasted 1555 abdominal scar trigger point completed. 1558 Fentanyl 50 mcg IV given 1601 Fentanyl 50 mcg IV given [place] placed for Popliteal Nerve Block.. Placement verified [...] + +--------+ + + + | MI INJECTION(S), | Routin | 12/27/2017 | Complex regional | | | ANESTHETIC AGENT(S) | e | 4:32 PM | pain syndrome type 1 | | | AND/OR STEROID; | | PST | of left lower | | | OTHER PERIPHERAL | | | extremity | | | NERVE OR BRANCH | | | | | + +--------+ + + + | MI ROPIVACAINE HCL | Routin | 12/27/2017 | Complex regional | | | INJ 0.5% | e | 4:32 PM | pain syndrome type 1 | | | | | PST | of left lower | | | | | | extremity | | + +--------+ + + + | MI MOD SEDATION | Routin | 12/27/2017 | Complex regional | | | >=5YRS SAME MD/QUAL | e | 4:32 PM | pain syndrome type 1 | | | PROV; INIT 15 MIN | | PST | of left lower | | | | | | extremity | | + +--------+ + + + documented in this encounter Results ROLLING DOWN MACHINE OPERATOR MISC PROCEDURE (12/27/2017 3:28 PM PST) + [...]
--- OUTSIDE RECORDS SUMMARY | ~2020-03-23 | XMS | Encounter Summary ---
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 | | | | Therapy | CRPS | Janak Martinez MD | [address] | | | | | (complex | [address] | | | | | regional | [address] | Mailcode: | | | | | pain | Mailstop | [facility] | | | | | syndrome), | [phone] | for Health | | | | | lower limb | [place], [place] | and Healing, | | | | | Gait | [address] | Building [address] | | | | | disturbance | Phone: | [place], [place] | | | | | Muscle pain | [phone] | [address] | | | | | Procedures | Fax: | Phone: | | | | | PHYSICAL | [phone] | [phone] | | | | | THERAPY | [...] regional pain | | | | [facility] | [place] [address] | syndrome), lower | | | | [address] | [phone] | limb (Primary Dx) | | | | Mailcode: CH3P | | | | | | [facility] | Specialist, Edu | | | | | and Healing, | Exercise [address] | | | | | Building | [address] [place], | | | | | Floor [place], [place] | [place] [address] | | | | | [address] | | | | | | [phone] | | | +--------+---------+ + + + [...] might be different f rom the original. [id number] BRODY FARAH Date of : 1990 Start of care: 02/14/2012 Date of onset: 02/14/2012 Referring/Attending Practitioner: Janak Riojas MD . Primary/Referral Diagnosis/ICD-9: 355.71B CRPS (complex regional pain syndrome), lower limb Insurance: Payor: [facility] Feedback-Machine [facility] Plan: BCBS OUT OF STATE Product Type: PP O Service period from: 02/14/2012 to: 08/12/2012 Number visits used/authorized: 02/23 [facility] PHYSICAL THERAPY PROGRESS NOTE SUBJECTIVE: [...] any change in their status. Guillermo Sanon [facility] Outpatient Rehabilitation Services Mailcode: Ch3p [address] [facility], [address] [place] [address] documented in this encounter Plan of Treatment Not on filedocumented as of this encounter Procedures + +--------+ + + + | Procedure Name | Priori | Date/Time | Associated Diagnosis | Comments | | | ty | | | | + +--------+ + + + | [facility] | Routin | 05/24/2012 | CRPS (complex | | | EXERCISES | e | 6:23 PM | regional pain | | | | | PDT | syndrome), lower | | | | | | limb | | + +--------+ + + + | [facility] | Routin | 05/24/2012 | CRPS [...]
--- OUTSIDE RECORDS SUMMARY | ~2020-03-23 | XMS | Encounter Summary ---
Demographics + + + | Address | [address] | | | [place] [address] | + + + | Home Phone [...] Providers + +------+ + | Care Biofuels Processing Technician Name | Role | Phone | + +------+ + | Justo Vazquez MD | PCP | | + +------+ + Encounter Details +--------+ + + + + | Date | Type | Department | Care Team | Description | +--------+ + + + + | 12/05/ | Procedure | [facility] | | | | 2019 | Pass | [facility] | | | | | | and Healing Surgery | | | | | | Center Admitting | | | | | | Desk Located on the | | | | | | 4th floor [address] | | | | | | [address] [place], | | | | | | [place] [address] | | | +--------+ + + + [...]
--- OUTSIDE RECORDS SUMMARY | ~2020-03-23 | XMS | Encounter Summary ---
Demographics + + + | Address | [address] | | | [place] [address] | + + + | Home Phone [...] + +------+ + | Care Patient Services Manager Name | Role | Phone [...] | Procedures | [place] | [facility], | | | | | CONSULT TO | [address] | [place] | | | | | PAIN | | [address] | | | | | MANAGEMENT | | Phone: | | | | | | | [phone] | | | | | | | Fax: | | | | | | | [phone] | +--------+--------+ + + + + Encounter Details +--------+---------+ + + + | Date | Type | Department | Care Team | Description | +--------+---------+ + + + | 04/23/ | Office | Pain Center at [facility] | Alex Sanchez, | Complex regional | | 2019 | Visit | [address] | ,PhD [address] [facility] | pain syndrome type 1 | | | | Mailcode: CH15P | [facility] [address] | of left lower | | | | Center for Health | [place], [place] | extremity (Primary | | | | and Healing, | [address] | Dx); Other chronic | | | | Building | [phone] | pain ; S/P insertion | | | | Floor [facility] [place] | | of spinal cord | | | | [address] | | stimulator | | | | [phone] | | | +--------+---------+ + + + [...] lab on the 1st floor of [facility] to provide a urine sample for [...] Sanchez MD,PhD [facility] Hospital[facility]ronically signed by Alex Sanchez MD,PhD at [...] Lam MD - 9 1:00 PM PDT [facility] Pain Center Return Visit Date: 04/23/2019 Chief Complaint Patient presents with Pain in left leg from the knee downl Back pain where battery pack is located History of Present Illness: Tracie Farah is a 28 year old female, whose last appoi ntment at the [facility] [place] was December 22, 2018, for a clinic [...] symptoms. She notes that [facility] to provide her with ongoing pain prescriptions. She feels like she has started to feel more of her left leg pain due to the boone that [facility] has in place. She is [...] - DRG Spinal cord stimulator trial with [employer] system (09/25/2018) with 30-40% im provement of typical pain with significant improvement in mobility and function - Left popliteal/sciatic nerve injection AND abdominal scar trigger point injection ( 018) - Spinal cord stimulator trial with [employer] system by Janak Riojas MD (08/02/2012) - Left L3 lumbar sympathetic block by Janak Riojas MD (03/01/2012) Opioid Risk Tool (ORT) 04/23/2019 ARTS MANAGER Brief Pain Inventory: (ten= worst possible [...] Hemroidectomy Trial spinal cord stimulator leads 08/02/2012 [employer], Surgeon: Janak Riojas MD Cholecystectomy Appendectomy Other [...] History Social History Narrative Single. Goes to [employer] with a light load. Has been working at [employer], can' t work on [employer]. Has roommates. Allergies Allergen Reactions Morphine Anaphylaxis [...] with nausea Abdominal pain Abdominal scar neuroma [facility] CLINICAL PROTOCOL PATIENT (CLNPRO) - Implanted [...] and summary of old medical records (source: [employer]), as summarized in the body of the [...] We performed DRG SCS trial with the [employer] System on 09/25/2018 which provided her with [...] ago. She has not spoken with the [employer] representatives about this. I encouraged her to [...] Aleta Rebollar MD [facility] AT [facility] 15 FLOOR [address] [facility] Mail Code: [place] [address] do cumented in this encounter [...] + + | [facility] | [address] | [place] [address] | | | SERVICES, CORE | GUILLERMO [...]
--- OUTSIDE RECORDS SUMMARY | ~2020-03-23 | XMS | Encounter Summary ---
Demographics + + + | Address | [address] | | | [place] [address] | + + + | Home Phone [...] Team Providers + +------+ + | Care Structurer Name | Role | Phone | + [...] [facility] | [address] CHESTNUT, | trial wound | | | | [address] | [place] [address] | infection) | | | | Mailcode: CH15P | [phone] | | | | | [facility] | | | | | | and Healing, | | | | | | | | | | | | Floor [place], [place] | | | | | | [address] | | | | | | [phone] | | | +--------+ + + + [...]
--- OUTSIDE RECORDS SUMMARY | ~2020-03-23 | XMS | Encounter Summary ---
Demographics + + + | Address | [address] | | | [place] [address] | + + + | Home Phone [...] Team Providers + +------+ + | Care Sheep Sorter Name | Role | Phone | [...] | | | [address] Mailcode: | [place], [place] | | | | | [address] | [address] | | | | | Health and Healing, | [phone] | | | | | | | | | | | Floor [facility] [place] | | | | | | [address] | | | | | | [phone] | | | +--------+ + + + [...] Note | + + | Service Account, Navdy Res In Interface - 03/08/2018 9:42 AM [...]
--- OUTSIDE RECORDS SUMMARY | ~2020-03-23 | XMS | Encounter Summary ---
Demographics + + + | Address | [address] | | | [place] [address] | + + + | Home Phone [...] Team Providers + +------+ + | Care Canned Food Reconditioning Inspector Name | Role | Phone | [...] | Complex | Alex Alba, | [facility] [address] | | | | | regional | ,PhD [address] | Pavilion | | | | | pain | [address] | | | | | syndrome | [address] | [address], | | | | | type 1 of | Rd | Basement | | | | | left lower | [place], [place] | [place], [place] | | | | | extremity | [address] | [address] | | | | | Muscle pain | Phone: | Phone: | | | | | Procedures | [phone] | [phone] | | | | | NM BONE | Fax: | Fax: | | | | | &/OR JOINT | [phone] | [phone] | | | | | IMAGING | [...] | | | | | | LA BONE | | | | | | | IMAGING, | | | | | | | LIMITED AREA | | | | | | | LA BONE | | | | | | [...] | 2018 | Encounter | at [facility] [address] | ,PhD [address] [facility] | | | | | [address] | [address] | | | | | [address], | [place], [place] | | | | | [facility], | [address] | | | | | [place] [address] | [phone] | | | | | [phone] | | | +--------+ + + + [...]
--- OUTSIDE RECORDS SUMMARY | ~2020-03-23 | XMS | Encounter Summary ---
Demographics + + + | Address | [address] | | | [place] [address] | + + + | Home Phone [...] Team Providers + +------+ + | Care Germination Worker Name | Role | Phone | [...]
--- OUTSIDE RECORDS SUMMARY | ~2020-03-23 | XMS | Encounter Summary ---
Demographics + + + | Address | [address] | | | [place] [address] | + + + | Home Phone [...] Providers + +------+ + | Care Order Tracer Name | Role | Phone | + [...] | | | | regional | ,PhD [address] | | | | | | pain | [address] | | | | | | syndrome | [address] | | | | | | type 1 of | Rd | | | | | | left lower | [place], [place] | | | | | | extremity | [address] | | | | | | Other | Phone: | | | | | | chronic pain | [phone] | | | | | | S/P | Fax: | | | | | | insertion of | [phone] | | | | | | spinal [...] | | | | regional | ,PhD [address] | | | | | | pain | [address] | | | | | | syndrome | [address] | | | | | | type 1 of | Rd | | | | | | left lower | [place], [place] | | | | | | extremity | [address] | | | | | | Other | Phone: | | | | | | chronic pain | [phone] | | | | | | S/P | Fax: | | | | | | insertion of | [phone] | | | | | | spinal [...] + + | 04/26/ | Telephone | [facility] Comprehensive | Alex Sanchez, | | | 2018 | | Pain Center at | ,PhD [address] [facility] | | | | | [facility] | [facility] | | | | | [address] | [place], [place] | | | | | Mailcode: CH15P | [address] | | | | | [facility] | [phone] | | | | | and Martina, | | | | | | | | | | | | Floor [place], [place] | | | | | | [address] | | | | | | [phone] | | | +--------+ + + + [...]
--- OUTSIDE RECORDS SUMMARY | ~2020-03-23 | XMS | Encounter Summary ---
Demographics + + + | Address | [address] | | | [place] [address] | + + + | Home Phone [...] Providers + +------+ + | Care Freight Rate Analyst Name | Role | Phone | + +------+ + | Justo Vazquez MD | PCP | | + +------+ + Encounter Details +--------+ + + + + | Date | Type | Department | Care Team | Description | +--------+ + + + + | 03/12/ | Telephone | [facility] | Alex Sanchez, | | | 2019 | | Pain Center at | ,PhD [address] | | | | | [facility] | [facility] [address] | | | | | [address] | [facility] [place] | | | | | Mailcode: CH15P | [address] | | | | | [place] for [facility] | [phone] | | | | | and Healing, | | | | | | | | | | | | Floor [place], [place] | | | | | | [address] | | | | | | [phone] | | | +--------+ + + + [...]
--- OUTSIDE RECORDS SUMMARY | ~2020-03-23 | XMS | Encounter Summary ---
Demographics + + + | Address | [address] | | | [place] [address] | + + + | Home Phone [...] Team Providers + +------+ + | Care Fixture Builder Name | Role | Phone | [...] Rd | | | | | | [place], [place] | | | | | | [address] | | | +--------+ + + + [...]
--- OUTSIDE RECORDS SUMMARY | ~2020-03-23 | XMS | Encounter Summary ---
Demographics + + + | Address | [address] | | | [place] [address] | + + + | Home Phone [...] Providers + +------+ + | Care Purchasing Manager Name | Role | Phone | + +------+ + | Justo Vazquez MD | PCP | | + +------+ + Encounter Details +--------+ + + + + | Date | Type | Department | Care Team | Description | +--------+ + + + + | 12/02/ | Document-Sc | Health Information | Unknown . | | | 2017 | anned | Services [address] | | | | | | [address] | | | | | | Mailcode: OP17A | | | | | | [facility] | | | | | | [place], [place] | | | | | | [address] | | | | | | [phone] | | | +--------+ + + + [...]
--- OUTSIDE RECORDS SUMMARY | ~2020-03-23 | XMS | Encounter Summary ---
Demographics + + + | Address | [address] | | | [place] [address] | + + + | Home Phone [...] Providers + +------+ + | Care Supervisor Abattoir Name | Role | Phone | + [...] | | | | regional | ,PhD [address] | | | | | | pain | [address] | | | | | | syndrome | [address] | | | | | | type 1 of | Rd | | | | | | left lower | [place], [place] | | | | | | extremity | [address] | | | | | | Procedures | Phone: | | | | | | CONSULT TO | [phone] | | | | | | ORTHOPEDICS | Fax: | | | | | | AND | [phone] | | | | | | REHABILITATI | | | | | | | ON | | | +--------+--------+ + + + + Encounter Details +--------+ + + + + | Date | Type | Department | Care Team | Description | +--------+ + + + + | 06/08/ | Conference Coordinator | [facility] Comprehensive | Alex Sanchez, | Complex regional | | 2019 | | Pain Center at | ,PhD [address] [facility] | pain syndrome type 1 | | | | [facility] | [facility] [address] | of left lower | | | | [address] | [place], [place] | extremity (Primary | | | | Mailcode: CH15P | [address] | Dx) | | | | [place] [facility] | [phone] | | | | | and Healing, | | | | | | | | | | | | Floor [place], [place] | | | | | | [address] | | | | | | [phone] | | | +--------+ + + + [...]
--- OUTSIDE RECORDS SUMMARY | ~2020-03-23 | XMS | Encounter Summary ---
Demographics + + + | Address | [address] | | | [place] [address] | + + + | Home Phone [...] Team Providers + +------+ + | Care Dean Of Men Name | Role | Phone | + [...] Medical Records | | 2017 | | [place] [address] [address] | | Review | | | | [address] | | | | | | Mailcode: Harvey | | | | | | [facility] and | | | | | | [facility] 2 | | | | | | [place], [place] | | | | | | [address] | | | | | | [phone] | | | +--------+ + + + [...]
--- OUTSIDE RECORDS SUMMARY | ~2020-03-23 | XMS | Encounter Summary ---
Demographics + + + | Address | [address] | | | [place] [address] | + + + | Home Phone [...] Team Providers + +------+ + | Care Adding Machine Servicer Name | Role | Phone | [...] Pain Medicine | Diagnoses | Chasity | Franchise Consultant Chh1 | | | | / Pain | Abdominal | MD Kenny | [address] | | | | Management | pain, | [address] | [address] | | | | | unspecified | [facility] | Mailcode: | | | | | location | Rd | CH15P Center | | | | | Procedures | [place], [place] | for Health | | | | | CONSULT TO | [address] | and Healing, | | | | | PAIN | | Building | | | | | MANAGEMENT | | 1,15th Floor | | | | | | | [place], [place] | | | | | | | [address] | | | | | | | Phone: | | | | | | | [phone] | | | | | | | Fax: | | | | | | | [phone] | +--------+--------+ + + + + Encounter Details +--------+---------+ + + + | Date | Type | Department | Care Team | Description | +--------+---------+ + + + | 07/11/ | Office | [facility] Comprehensive | Ilene Brigth, | Pain of upper | | 2017 | Visit | Pain Center at | DIVING BOARD ASSEMBLER [address] | abdomen (Primary | | | | [place] | [place], [place] | Dx); Intractable | | | | [address] | [address] | cyclical vomiting | | | | Mailcode: CH15P | [phone] | with nausea; | | | | [facility] | | Irritable bowel | | | | and Healing, | | syndrome with | | | | Building | | constipation; | | | | Floor [place], [place] | | Complex regional | | | | [address] | | pain syndrome type 1 | | | | [phone] | | of left lower | | [...] and determine next steps. Ilene Childs DNP, DIVING BOARD ASSEMBLER-C Adult Pain Service /[facility] Center [address] [place] [address] documented in this encounter Progress Notes Ilene Bright FNP - 07/11/2017 1:35 PM PDTFormatting of this note might be different fr om the original. [facility] Pain Center Return [...] [facility] the [facility]. She has also [...] her abdominal pain an d associated symptoms. CAR SCRUBBER QUESTIONNAIRE BRIEF PAIN 07/11/2017 Please rate how [...] has interfered with your sleep : 5 CAR SCRUBBER Questionnaire Follow-up Patient 07/11/2017 Please describe the [...] Hemroidectomy Trial spinal cord stimulator leads 08/02/2012 [facility], Surgeon: Janak Riojas MD Cholecystectomy [...] History Social History Narrative Single. Goes to [employer] with a light load. Has been working at [employer], can' t work on [employer]. Has roommates. Allergies Allergen Reactions Morphine Anaphylaxis [...] by physician. Concentration is 150mg/mL. Compounded by [facility] ( [phone]) LAMOTRIGINE 200 MG TABLET Take 1 tablet [...] and summary of old medical records (source: [email or web address]), as summarized in the body of the [...] an elimination diet guidelines. I have provided Tarcie with print outs for both of the [...] Shantel Salinas, am functioning as a medical imaging technologist for MARLENI Clark DNP I have reviewed and verified the above scribed note of my visit with this patient as record ed by Shantel Salinas. Ilene Childs DNP, TERESA-Brendan Adult Pain Service /[facility] [place] [address] Addendum: I paged Dr. Les Gaspar. He was out of the clinic, I spoke with the covering provider and dianelys Hodges's request for food allergy testing. Since Tracie thinks her pain and vomiting may b e triggered by gluten, covering provided ordered appropriate workup, which I communicated to Tracie and the the lab in [place], [place]. She will followup with me and GI once these results are available. Ilene Childs DNP, DIVING BOARD ASSEMBLER-C Adult Pain Service /Comprehensive Pain Center [address] [place] [address] documented in this e ncounter Plan of [...]
--- OUTSIDE RECORDS SUMMARY | ~2020-03-23 | XMS | Encounter Summary ---
Demographics + + + | Address | [address] | | | [place] [address] | + + + | Home Phone [...] Providers + +------+ + | Care Police Aide Name | Role | Phone | [...] Oliveira | | 2011 | IP | [address] | | House - Approved | | | | [place]iana Maldonado [place], | | | | | | [place] [address] | | | +--------+ + + + [...]
--- OUTSIDE RECORDS SUMMARY | ~2020-03-23 | XMS | Encounter Summary ---
Demographics + + + | Address | [address] | | | [place] [address] | + + + | Home Phone [...] Providers + +------+ + | Care Water Quality Specialist Name | Role | Phone | [...] | | pain | [address] | [place], [place] | | | | | syndrome | [place], [place] | [address] | | | | | type 1 of | [address] | Phone: | | | | | left lower | Phone: | [phone] | | | | | extremity | [phone] | Fax: | | | | | Midline low | Fax: | [phone] | | | | | back pain | [phone] | | | | | | without [...] Ave | | | | | | [place], [place] | [facility] [place] | | | | | | [address] | [address] | | | | | | Phone: | Phone: | | | | | | [phone] | [phone] | | | | | | Fax: | Fax: | | | | | | [phone] | [phone] | +--------+---------+ + + + + Encounter Details +--------+---------+ + + + | Date | Type | Department | Care Team | Description | +--------+---------+ + + + | 07/04/ | Office | [facility] Comprehensive | Lane Reyes, | Complex regional | | 2019 | Visit | Pain Center at | [place] [address] | pain syndrome type 1 | | | | [place] | [place], [place] | of left lower | | | | [address] | [address] | extremity (Primary | | | | Mailcode: CH15 | [phone] | Dx); Midline low | | | | [place] for [facility] | | back pain without | | | | and Healing, | | sciatica, | | | | | | unspecified | | | | Floor [place], [place] | | chronicity; | | | | [address] | | Sacroiliac pain; | | | | [phone] | | Sacral dysfunction; | | | [...] and help in coping with the pain. DIRECTOR DIETETICS DEPARTMENT Brief Pain Inventory: (ten= worst possible pain [...] Trial spinal cord stimulator leads 08/02/2012 [facility], Surgeon: Janak Riojas MD Cholecystectomy [...] a light load. Has been working at [employer], can' t work on crutches. Has roommates. [...] Tests: X-RAY SPINE CERV 4 VIEWS Order: [id number] Performed: 06/12/2018 11:40 Status: Final result Visible [...] that the treatment performed by the chiropractic phd internship, Niesha Reveles, was directly observed by myself the primary chiropractor Lane Reyes [place] Visit Diagnoses: ICD-10-CM 1. Complex regional pain syndrome type 1 of left lower extremity G90.522 CONSULT TO PAIN [facility] 2. Midline low back pain without sciatica, unspecified chronicity M54.5 CONSULT TO PAIN [facility] 3. Sacroiliac pain M53.3 CONSULT TO PAIN MANAGEMENT [place] CHIROPRAC MANIP,SPINAL,1-2 REGIONS 4. Sacral dysfunction M53.3 NC CHIROPRAC MANIP,SPINAL,1-2 REGIONS 5. Somatic dysfunction of pelvis region M99.05 NC CHIROPRAC MANIP,SPINAL,1-2 REGIONS 6. Somatic dysfunction of sacral region M99.04 NC CHIROPRAC MANIP,SPINAL,1-2 REGIONS Impression: Tracie Farah is [...] verified the above note written by Chiropractic phd internship of our visit wit h this patient as recorded by Lane Reyes [place] [facility] CENTER AT [address] Mail Code: Ch15p [place] [address] documented in this e ncounter Plan of Treatment Not on filedocumented as of this encounter Procedures + +--------+ + + + | Procedure Name | Priori | Date/Time | Associated Diagnosis | Comments | | | ty | | | | + +--------+ + + + | NC CHIROPRAC | Routin | 07/10/2019 | Sacroiliac [...]
--- OUTSIDE RECORDS SUMMARY | ~2020-03-23 | XMS | Encounter Summary ---
Demographics + + + | Address | [address] | | | [place] [address] | + + + | Home Phone [...] Providers + +------+ + | Care Wire Cutter Name | Role | Phone | [...] | Orthopedics | Diagnoses | [place], | [place], | | | | | Complex | Alex Alba, | Ranjeet Odom MD | | | | | regional | ,PhD [address] | [address] | | | | | pain | [address] | Ave | | | | | syndrome | [place] | [place], [place] | | | | | type 1 of | Rd | [address] | | | | | left lower | [place] | Phone: | | | | | extremity | [address] | [phone] | | | | | Procedures | Phone: | Fax: | | | | | CONSULT TO | [phone] | [phone] | | | | | ORTHOPEDICS | Fax: | | | | | | AND | [phone] | | | | | | REHABILITATI [...] ankle results) | | | | [facility] | [facility] | | | | | [address] | [place], [place] | | | | | Mailcode: CH15P | [address] | | | | | [facility] | [phone] | | | | | and Healing, | | | | | | Building | | | | | | [place], [place] | | | | | | [address] | | | | | | [phone] | | | +--------+ + + + [...]
--- OUTSIDE RECORDS SUMMARY | ~2020-03-23 | XMS | Encounter Summary ---
Demographics + + + | Address | [address] | | | [place] [address] | + + + | Home Phone [...] Team Providers + +------+ + | Care Trouble Lineman Name | Role | Phone | [...] Closed | | Orthopedics | Diagnoses | Mcdonough, | [facility] | | | | | Adjustment | Ranjeet Odmo MD | Chh1 [address] | | | | | disorder, | [address] | [address] | | | | | unspecified | Ave | Mailcode: | | | | | type | [place], [place] | [facility] | | | | | Procedures | [address] | for Health | | | | | CONSULT TO | Phone: | and Healing, | | | | | BEHAVIORAL | [phone] | Building 1, | | | | | HEALTH/PSYCH | Fax: | 12th Floor | | | | | IATRY - | [phone] | [place], [place] | | | | | ADULT | | [address] | | | | | | | Phone: | | | | | | | [phone] | | | | | | | Fax: | | | | | | | [phone] | +--------+--------+ + + + + Reason [...] | | syndrome | [address] | [place], [place] | | | | | type 1 of | Rd | [address] | | | | | left lower | [place], [place] | Phone: | | | | | extremity | [address] | [phone] | | | | | Procedures | Phone: | Fax: | | | | | CONSULT TO | [phone] | [phone] | | | | | ORTHOPEDICS | Fax: | | | | | | AND | [phone] | | | | | | REHABILITATI [...] | 2018 | Visit | [facility] at [facility] | MD [address] | (Primary Dx); Left | | | | for Health and | [place] | ankle pain, | | | | Healing [address] | [address] | unspecified | | | | Ave Mailcode: | [phone] | chronicity; | | | | CH12A [facility] | | Adjustment disorder, | | | | Health and Healing, | | unspecified type | | | | Building | | | | | | Floor [place], [place] | | | | | | [address] | | | | | | [phone] | | | +--------+---------+ + + + [...] Hemroidectomy Trial spinal cord stimulator leads 08/02/2012 [facility], Surgeon: Janak Riojas MD [...] by physician. Concentration is 150mg/mL. Compounded by [employer] ([phone]) levonorgestrel (MIRENA) 20 mcg/24 hr Intrauterine IUD [...] oral recon soln Take as directed by [facility] [employer] [facility]- 2 gallon bowel prep polyethylene [...] become. f/u open ended Ranjeet Amanda M.D. Deep Fryer Assembler Foot and Ankle Surgery Department of Orthopedics & Rehabilitation [facility] [phone] >60 mins face to face consultation was [...]
--- OUTSIDE RECORDS SUMMARY | ~2020-03-23 | XMS | Encounter Summary ---
Demographics + + + | Address | [address] | | | [place] [address] | + + + | Home Phone [...] Providers + +------+ + | Care Service Consultant Name | Role | Phone | + +------+ + | Justo Vazquez MD | PCP | | + +------+ + Encounter Details +--------+ + + + + | Date | Type | Department | Care Team | Description | +--------+ + + + + | 01/12/ | Telephone | Digestive Health | Kenny Gaspar MD | | | 2016 | | [place] [facility] [address] | | | | | | [address] | | | | | | Mailcode: [place] | | | | | | for Health and | | | | | | Healing, Building 2 | | | | | | [place], [place] | | | | | | [address] | | | | | | [phone] | | | +--------+ + + + [...]
--- OUTSIDE RECORDS SUMMARY | ~2020-03-23 | XMS | Encounter Summary ---
Demographics + + + | Address | [address] | | | [place] [address] | + + + | Home Phone [...] + +------+ + | Care Elementary School Counselor Name | Role | Phone | + +------+ + | Justo Vazquez MD | PCP | | + +------+ + Encounter Details +--------+ + + + + | Date | Type | Department | Care Team | Description | +--------+ + + + + | 07/26/ | MyChart | [facility] Comprehensive | [place] Bright, | Labs | | 2017 | Encounter | Pain Center at | TRANSMISSION SUPERVISOR [address] | | | | | [facility] | [place], [place] | | | | | [address] | [address] | | | | | Mailcode: CH15 | [phone] | | | | | [facility] | | | | | | and Healing, | | | | | | | | | | | | Floor [place], [place] | | | | | | [address] | | | | | | [phone] | | | +--------+ + + + [...]
--- OUTSIDE RECORDS SUMMARY | ~2020-03-23 | XMS | Encounter Summary ---
Demographics + + + | Address | [address] | | | [place] [address] | + + + | Home Phone [...] Providers + +------+ + | Care Special Forces Senior Sergeant Name | Role | Phone | [...] | | | Ave Mailcode: [facility] | [place], [place] | | | | | [facility] | [address] | | | | | Health and Healing, | [phone] | | | | | [place] [address] | | | | | | [place], [place] | | | | | | [address] | | | | | | [phone] | | | +--------+ + + + [...] Discharge Instructions Instructions Darlin Doyle RN - 12/14/2016[place] Care Instructions after Colonoscopy You may resume [...] on weekends and holidays call the [facility] toll free 1- [phone] Ext. [phone] or and have the GI doctor addictions counselor paged. The provider who performed your procedure [...] Farah is a 26 y.o. female MR# [id number] presents today for colonoscopy NPO since midnight [...]
--- OUTSIDE RECORDS SUMMARY | ~2020-03-23 | XMS | Encounter Summary ---
Demographics + + + | Address | [address] | | | [place] [address] | + + + | Home Phone [...] Providers + +------+ + | Care Change Management Manager Name | Role | Phone | + +------+ + | Justo Vazquez MD | PCP | | + +------+ + Encounter Details +--------+ + + + + | Date | Type | Department | Care Team | Description | +--------+ + + + + | 10/03/ | Telephone | [facility] | [place] Bright, | | | 2017 | | Pain Center at | ASSISTANT CUSTOMER SERVICE MANAGER [address] | | | | | [facility] | [place], [place] | | | | | [address] | [address] | | | | | Mailcode: CH15P | [phone] | | | | | [facility] | | | | | | and Healing, | | | | | | | | | | | | Floor [place], [place] | | | | | | [address] | | | | | | [phone] | | | +--------+ + + + [...]
--- OUTSIDE RECORDS SUMMARY | ~2020-03-23 | XMS | Encounter Summary ---
Demographics + + + | Address | [address] | | | [place] [address] | + + + | Home Phone [...] Providers + +------+ + | Care Concrete Handler Name | Role | Phone | [...] 2017 | | Pain Center at | COMMUNITY ENGAGEMENT REPRESENTATIVE [address] | | | | | [facility] | [place], [place] | | | | | [address] | [address] | | | | | Mailcode: CH15P | [phone] | | | | | [facility] | | | | | | joana Mack, | | | | | | Building | | | | | | [place], [place] | | | | | | [address] | | | | | | [phone] | | | +--------+ + + + [...]
--- OUTSIDE RECORDS SUMMARY | ~2020-03-23 | XMS | Clinical Summary ---
Demographics + + + | Address | [address] | | | [place] [address] | + + + | Home Phone [...] + + | Author | [facility] | | | and [place] | + + + | Organization | [facility] | | | and [place] [...] | [place] | | | | | [address] | | + + + + + | Bryant Farah | ECON | Unknown | | + + + + + Care Team Providers + +------+ + | Care Club Licensee Name | Role | Phone | + [...] +--------+ +---------+--------+ | MEDICARE | MEDICA | [id number] | 07/15/20 | [phone] | | Medica | | | RE | | 15-Pre | 5 | | re | | | PART A | | sent | | | | | | AND B | | | | | | + +--------+ +--------+ +---------+--------+ | MEDICAID [place] | MEDICA | [id number] | | [phone] | | Medica | [...] | 1990 | [phone] | [place] [address] | | | evita | | | 6 (Home) | | + +--------+ +--------+ + +"
--- OUTSIDE RECORDS SUMMARY | ~2020-03-23 | XMS | Encounter Summary ---
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 | CRPS | Janak Martinez MD | [address] | | | | | (complex | [address] | | | | | regional | [address] | Mailcode: | | | | | pain | Mailstop | CH3P Center | | | | | syndrome), | [address] | for Health | | | | | lower limb | [place], [place] | and Healing, | | | | | Gait | [address] | Building 1 | | | | | disturbance | Phone: | [place], [place] | | | | | Muscle pain | [phone] | [address] | | | | | Procedures | Fax: | Phone: | | | | | PHYSICAL | [phone] | [phone] | | | | | THERAPY | [...] regional pain | | | | [facility] | [place] [address] | syndrome), lower | | | | [address] | [phone] | limb (Primary Dx) | | | | Mailcode: CH3P | | | | | | [facility] | | | | | | and Healing, | | | | | | Building [address] | | | | | | Floor [place], [place] | | | | | | [address] | | | | | | [phone] | | | +--------+---------+ + + + [...] might be different f rom the original. [id number] BRODY FARAH Date of : 1990 Start of care: 02/14/2012 Date of onset: 02/14/2012 Referring/Attending Practitioner: Janak Riojas MD . Primary/Referral Diagnosis/ICD-9: 355.71B CRPS (complex regional pain syndrome), lower limb Insurance: Payor: [facility] Plan: BCBS OUT OF STATE [...] change in their status. Guillermo Sanon MSPT [facility] Outpatient Rehabilitation Services Mailcode: Ch3p [address] [facility], [address] [place] [address] documented in this encounter Plan of Treatment Not on filedocumented as of this encounter Procedures + +--------+ + + + | Procedure Name | Priori | Date/Time | Associated Diagnosis | Comments | | | ty | | | | + +--------+ + + + | CT MANUAL THER | Routin | 06/05/2012 | CRPS (complex | | | TECH,1+REGIONS,EA 15 | e | 5:15 PM | regional pain | | | MIN | | PDT | syndrome), lower | | | | | | limb | | + +--------+ + + + | CT THERAPEUTIC | Routin | 06/05/2012 | CRPS [...]
--- OUTSIDE RECORDS SUMMARY | ~2020-03-23 | XMS | Encounter Summary ---
Demographics + + + | Address | [address] | | | [place] [address] | + + + | Home Phone [...] Team Providers + +------+ + | Care Clin Nurse Spec Name | Role | Phone | [...] [place] | | | | | | [address] | | | +--------+ + + + [...]
--- OUTSIDE RECORDS SUMMARY | ~2020-03-23 | XMS | Encounter Summary ---
Demographics + + + | Address | [address] | | | [place] [address] | + + + | Home Phone | | + + + | Preferred Language | Unknown | + + + | Marital Status | Single | + + + | Rastafarian Affiliation | 1073 | + + + | Race | Unknown | + + + | Ethnic Group | Unknown | + + + Author + + + | Author | [facility] | | | and [place] | + + + | Organization | [facility] | | | and [...] [place] | | | | | [address] | | + + + + + | Bryant Farah | ERICKA | Unknown | | + + + + + Care Team Providers + +------+ + | Care Lead Medical Technologist Name | Role | Phone | + +------+ + PCP | Unavailable | + +------+ + Encounter Details +--------+ + + + + | Date | Type | Department | Care Team | Description | +--------+ + + + + | 09/12/ | Hospital | [facility] | | | | 2008 | Encounter | [facility] | | | | | | CENTER [address] | | | | | | [place], [place] | | | | | | [address] | | | | | | [phone] | | | +--------+ + + + [...]
--- OUTSIDE RECORDS SUMMARY | ~2020-03-23 | XMS | Encounter Summary ---
Demographics + + + | Address | [address] | | | [place] [address] | + + + | Home Phone [...] Providers + +------+ + | Care Wire Weaver Helper Name | Role | Phone | + +------+ + | Justo Vazquez MD | PCP | | + +------+ + Encounter Details +--------+ + + + + | Date | Type | Department | Care Team | Description | +--------+ + + + + | 12/07/ | Pharmacy | [facility] | | | | 2019 | Visit | & [facility]aling Pharmacy | | | | | | [address] | | | | | | Mailcode: [place] | | | | | | [facility] | | | | | | Healing, Building [address] | | | | | | [place], [place] | | | | | | [address] | | | | | | [phone] | | | +--------+ + + + [...]
--- OUTSIDE RECORDS SUMMARY | ~2020-03-23 | XMS | Encounter Summary ---
Demographics + + + | Address | [address] | | | [place] [address] | + + + | Home Phone [...] Team Providers + +------+ + | Care Green Belt Name | Role | Phone | + +------+ + | Allegra Gandhi | PCP | | + +------+ + Encounter Details +--------+ + + + + | Date | Type | Department | Care Team | Description | +--------+ + + + + | 02/13/ | Hospital | Nuclear Medicine | | | | 2011 | Encounter | at [facility] [address] | | | | | | [address] | | | | | | [address], | | | | | | [place], | | | | | | [place] [address] | | | | | | [phone] | | | +--------+ + + + [...]
--- OUTSIDE RECORDS SUMMARY | ~2020-03-23 | XMS | Encounter Summary ---
Demographics + + + | Address | [address] | | | [place] [address] | + + + | Home Phone [...] Team Providers + +------+ + | Care Cpht Name | Role | Phone | + +------+ + | Justo Vazquez MD | PCP | | + +------+ + Encounter Details +--------+ + + + + | Date | Type | Department | Care Team | Description | +--------+ + + + + | 12/27/ | Ancillary | [facility] | Alex Sanchez, | | | 2018 | Orders | Pain Center at | ,PhD [address] | | | | | [facility] | [address] | | | | | [address] | [facility] [place] | | | | | Mailcode: CH15P | [address] | | | | | [place] for [facility] | [phone] | | | | | and Healing, | | | | | | | | | | | | Floor [facility] [place] | | | | | | [address] | | | | | | [phone] | | | +--------+ + + + [...]
--- OUTSIDE RECORDS SUMMARY | ~2020-03-23 | XMS | Encounter Summary ---
Demographics + + + | Address | [address] | | | [place] [address] | + + + | Home Phone [...] Providers + +------+ + | Care Auto Fleet Maintenance Manager Name | Role | Phone | [...] | | 2016 | | Center at [facility] [address] | MD Melissa | | | | | [address] | | | | | | Mailcode: Center | | | | | | for Health and | | | | | | Healing, Building 2 | | | | | | [place], [place] | | | | | | [address] | | | | | | [phone] | | | +--------+ + + + [...]
--- OUTSIDE RECORDS SUMMARY | ~2020-03-23 | XMS | Clinical Summary ---
Demographics + + + | Address | [address] | | | [place] [address] | + + + | Home Phone | | + + + | Preferred Language | Unknown | + + + | Marital Status | Single | + + + | Anglican Affiliation | 1013 | + + + | Race | Unknown | + + + | Ethnic Group | Unknown | + + + Author + + + | Author | [employer] (Historical as of | | | 06-30-19) | + + + | Organization | [facility] [employer] (Historical as of | | | 06-30-19) [...] Team Providers + +------+ + | Care Psych Rn Name | Role | Phone | [...] She has undergone extensive therapy at [facility] | | [facility] at pain clinics in [place] as well and | | [place], [place]. She has had sympathetic nerve blocks [...] +------+-------+ + | MEDICARE | MEDICA | [id number] | | | [address] | | | RE | | | | [place] [address] | | | IP-OP | | | | | + +--------+ +------+-------+ + | PREMERA | PREMER | [id number] | | | [address] [address] | | | A BLUE | 3 | | | [place], [place] | | | CARD | | | | [address] | + +--------+ +------+-------+ + | MEDICAID | [place] | [id number] | | | [address] | | | CARE | | | | [place] | | | [place] | | | | [address] | + +--------+ +------+-------+ + + +--------+ [...] | | al/Fam | | 1989 | [phone] [place], [place] | | | evita | | | [phone] | [address] | + +--------+ +--------+ + +
--- OUTSIDE RECORDS SUMMARY | ~2020-03-23 | XMS | Encounter Summary ---
Demographics + + + | Address | [address] | | | [place] [address] [...] Providers + +------+ + | Care Eyelet Cutter Name | Role | Phone | [...] with nausea | [address] | [address] [place], | | | | | Complex | Rd | [place] | | | | | regional | [place], [place] | [address] | | | | | pain | [address] | Phone: | | | | | syndrome | Phone: | [phone] | | | | | type 1 of | [phone] | Fax: | | | | | left lower | Fax: | [phone] | | | | | extremity | [phone] | | | | | | Procedures [...] | [facility] | [address] | | | | | location | Rd | [facility] | | | | | Procedures | [place], [place] | Rd [place], | | | | | CONSULT TO | [address] | [place] | | | | | PAIN | | [address] | | | | | MANAGEMENT | | Phone: | | | | | | | [phone] | | | | | | | Fax: | | | | | | | [phone] | +--------+--------+ + + + + Encounter Details +--------+---------+ + + + | Date | Type | Department | Care Team | Description | +--------+---------+ + + + | 04/19/ | Office | [facility] Ilene | Alex Sanchez, | Intractable cyclical | | 2018 | Visit | Pain Center at | ,PhD [address] | vomiting with | | | | [facility] | [address] | nausea (Primary Dx); | | | | [address] | [place], [place] | Complex regional | | | | Mailcode: CH15P | [address] | pain syndrome type 1 | | | | [facility] | [phone] | of left lower | | | | and Healing, | | extremity | | | | Building | | | | | | Floor [facility] [place] | | | | | | [address] | | | | | | [phone] | | | +--------+---------+ + + + [...] might be differe nt from the original. [facility] Return Visit Date: 04/20/2018 Chief Complaint Patient presents with Abdominal pain Back pain Pain in left leg History of Present Illness: Tracie Farah is a 27 year old female, whose last appoi ntment at the [facility] was 12/27/2017, for a procedure [...] not help for the abdominal pain). PAINBRIEF: DIRECTOR RETIREMENT Brief Pain Inventory: (ten= worst possible pain [...] Trial spinal cord stimulator leads 08/02/2012 [facility], Surgeon: Janak Riojas MD Cholecystectomy [...] History Social History Narrative Single. Goes to [employer] with a light load. Has been working at [employer], can' t work on [employer]. Has roommates. Allergies Allergen Reactions Morphine Anaphylaxis [...] by physician. Concentration is 150mg/mL. Compounded by [facility] ) KETOROLAC IM Inject into the [...] Madrid MD in [place], [place]. As she chowdhury s since left the practice, Ms. Farah no longer has a prescriber for this medication. At [facility], we typically do not provide [...] unclear etiology. She presents to the ER [facility], and is greatly helped by Toradol, [...] Follow up as needed Alex Sanchez MD,PhD [facility] 3 :41 PM Charline [...]
--- OUTSIDE RECORDS SUMMARY | ~2020-03-23 | XMS | Encounter Summary ---
Demographics + + + | Address | [address] | | | [place] [address] | + + + | Home Phone [...] Providers + +------+ + | Care Financial Accounting Analyst Name | Role | Phone | + +------+ + | Justo Vazquez MD | PCP | | + +------+ + Encounter Details +--------+ + + + + | Date | Type | Department | Care Team | Description | +--------+ + + + + | 01/31/ | Documentati | Vascular Access at | [place], | | | 2017 | on | [facility] [address] | Maru RN [address] | | | | | [address] | [address] | | | | | [facility] | [place], [place] | | | | | [place], [place] | [address] | | | | | [address] | | | | | | [phone] | | | +--------+ + + + [...]
--- OUTSIDE RECORDS SUMMARY | ~2020-03-23 | XMS | Encounter Summary ---
Demographics + + + | Address | [address] | | | [place] [address] | + + + | Home Phone [...] Providers + +------+ + | Care Brim Shaper Name | Role | Phone | [...] Rd | | | | | | [place], [place] | | | | | | [address] | | | +--------+ + + + [...]
--- OUTSIDE RECORDS SUMMARY | ~2020-03-23 | XMS | Encounter Summary ---
Demographics + + + | Address | [address] | | | [place] [address] | + + + | Home Phone [...] Providers + +------+ + | Care Javascript Front End Developer Name | Role | Phone | + +------+ + | Justo Vazquez MD | PCP | | + +------+ + Encounter Details +--------+ + + + + | Date | Type | Department | Care Team | Description | +--------+ + + + + | 12/07/ | Research Professional | [facility] at [facility] | Ava Carbajal | | | 2016 | | [address] MD | | | | | [address] Mailcode: | | | | | | [address] [place] for | | | | | | Health and Healing, | | | | | | Building [address] | | | | | | [place], [place] | | | | | | [address] | | | | | | [phone] | | | +--------+ + + + [...]
--- OUTSIDE RECORDS SUMMARY | ~2020-03-23 | XMS | Clinical Summary ---
Demographics + + + | Address | [address] | | | [place] [address] | + + + | Home Phone | | + + + | Preferred Language | Unknown | + + + | Marital Status | Single | + + + | Nondenominational Affiliation | 1013 | + + + | Race | Unknown | + + + | Ethnic Group | Unknown | + + + Author + + + | Author | rocket staff [employer] (Historical as of | | | 06-30-19) | + + + | Organization | [facility] [employer] (Historical as of | | | 06-30-19) [...] Team Providers + +------+ + | Care Psychology Clinician Name | Role | Phone | [...] since. She has undergone extensive therapy at [facility] | | [facility] at pain clinics in [place] as well and | | [place], [place]. She has had sympathetic nerve blocks [...] +------+-------+ + | MEDICARE | MEDICA | [id number] | | | [address] | | | RE | | | | [place] [address] | | | IP-OP | | | | | + +--------+ +------+-------+ + | PREMERA | PREMER | [id number] | | | [address] [address] | | | A BLUE | 3 | | | [place], [place] | | | CARD | | | | [address] | + +--------+ +------+-------+ + | MEDICAID | [place] | [id number] | | | [address] | | | CARE | | | | [place] | | | [place] | | | | [address] | + +--------+ +------+-------+ + + +--------+ [...] | | al/Fam | | 1989 | [phone] | [place], [place] | | | evita | | | [phone] | [address] | + +--------+ +--------+ + +
--- OUTSIDE RECORDS SUMMARY | ~2020-03-23 | XMS | Encounter Summary ---
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 | FAMILY | Mailstop | | | | | of lower | MEDICINE P | [id number] | | | | | limb | [address] | [place], [place] | | | | | | [place], | [address] | | | | | | [place] [address] | Phone: | | | | | | Phone: | [phone] | | | | | | [phone] | Fax: | | | | | | Fax: | [phone] | | | | | | [phone] | | +--------+--------+ + + + + Encounter Details +--------+---------+ + + + | Date | Type | Department | Care Team | Description | +--------+---------+ + + + | 09/04/ | Office | [facility] | Dale Cantu, | CRPS (complex | | 2011 | Visit | Pain Center at | [address] [facility] | regional pain | | | | [facility] | [facility] [id number] | syndrome), lower | | | | [address] | [place], [place] | limb; Gait | | | | Mailcode: CH15P | [address] | disturbance; Sleep | | | | [facility] | [phone] | disturbance, | | | | and Healing, | | unspecified; | | | | | | Adjustment reaction | | | | Floor [place], [place] | | | | | | [address] | | | | | | [phone] | | | +--------+---------+ + + + [...] CRPS patients (Loretta Rousseau, et al. Katrina Roll Line Operator Med. 2010;152:152-158) . Bisphosphonate trial. Typically, [...] MD - 09/04/2012 7:45 AM PDT [facility] Pain Center Return Visit with Dr. [...] and a pain drawing which I reviewed. [facility] Brief Pain Inventory: (ten= worst possible [...] cord stimulator trial last month with [facility] [employer] equipment wit h no benefit to her [...] Hemroidectomy Trial spinal cord stimulator leads 08/02/2012 [facility], Surgeon: Dale Cantu MD Family [...] The Review of Systems obtained by the [facility] was reviewed. Additional Review of Systems commen [...] of Pain: 13(1):17-21, 2008). DALE CANTU MD Photography Editor, [facility] Astrophysics Professor, Pain Medicine Professor, Anesthesiology & Perioperative [...]
--- OUTSIDE RECORDS SUMMARY | ~2020-03-23 | XMS | Encounter Summary ---
Demographics + + + | Address | [address] | | | [place] [address] | + + + | Home Phone [...] Team Providers + +------+ + | Care Spirits Model Name | Role | Phone | [...] Rd | | | | | | [place], [place] | | | | | | [address] | | | +--------+ + + + [...]
--- OUTSIDE RECORDS SUMMARY | ~2020-03-23 | XMS | Encounter Summary ---
Demographics + + + | Address | [address] | | | [place] [address] | + + + | Home Phone [...] Providers + +------+ + | Care Machine I Cutter Name | Role | Phone | [...] | | syndrome | [place] | [facility] | | | | | type 1 of | Rd | Rd [place], | | | | | left lower | [place], [place] | [place] | | | | | extremity | [address] | [address] | | | | | Procedures | Phone: | Phone: | | | | | REQUEST TO | [phone] | [phone] | | | | | SURGERY | Fax: | Fax: | | | | | KEYSEATING MACHINE SET UP OPERATOR | [phone] | [phone] | +--------+---------+ + + + + Encounter Details +--------+---------+ + + + | Date | Type | Department | Care Team | Description | +--------+---------+ + + + | 12/07/ | Office | [facility] Comprehensive | Eulogio | Complex regional | | 2019 | Visit | Pain Center at | MD Irene [address] | pain syndrome type 1 | | | | [facility] | [address] [facility], | of left lower | | | | [address] | [place] [address] | extremity (Primary | | | | Mailcode: CH15P | [phone] | Dx); S/P insertion | | | | [facility] | | of spinal cord | | | | and Healing, | | stimulator | | | | Building , | | | | | | Floor [place], [place] | | | | | | [address] | | | | | | [phone] | | | +--------+---------+ + + + [...] Lujan MD - 12/07/2018 9:10 AM PST [facility] Return Visit Date: 12/07/2018 Chief Complaint Patient presents with Back pain Pain in left leg History of Present Illness: Tracie Farah is a 28 year old female, whose last appoi ntment at the [facility] was December 05, 2018, for [...] her 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 Goes to [employer] with a light load. Has been working at [employer], can' t work on [employer]. Has roommates. Allergies Allergen Reactions Morphine Anaphylaxis [...] Take as directed by [facility]- 2 gallon bowel prep POLYETHYLENE GLYCOL [...] and summary of old medical records (source: [employer]), as summarized in the body of the [...] present for the encounter. Irene Krishnan MD [facility] COMPREHENSIVE PAIN CENTER AT [facility] [address] [facility], 4th Floor Mail Code: [id number], [place] [address] documented in thi s encounter Plan of Treatment Not on filedocumented as of this encounter Visit Diagnoses + + | Diagnosis | + + | Complex regional pain syndrome type 1 of left lower extremity - Primary | + + | S/P insertion of spinal cord stimulator | + + documented in this encounter
--- OUTSIDE RECORDS SUMMARY | ~2020-03-23 | XMS | Encounter Summary ---
Demographics + + + | Address | [address] | | | [place] [address] | + + + | Home Phone [...] Team Providers + +------+ + | Care Butt Maker Name | Role | Phone | + +------+ + | Justo Vazquez MD | PCP | | + +------+ + Encounter Details +--------+ + + + + | Date | Type | Department | Care Team | Description | +--------+ + + + + | 05/05/ | Documentati | [facility] Comprehensive | Alex Sanchez, | | | 2018 | on | Pain Center at | ,PhD [address] | | | | | [facility] | [facility] [address] | | | | | [address] | [place], [place] | | | | | Mailcode: CH15P | [address] | | | | | [place] for [facility] | [phone] | | | | | and Healing, | | | | | | | | | | | | Floor [place], [place] | | | | | | [address] | | | | | | [phone] | | | +--------+ + + + [...]
--- OUTSIDE RECORDS SUMMARY | ~2020-03-23 | XMS | Encounter Summary ---
Demographics + + + | Address | [address] | | | [place] [address] | + + + | Home Phone [...] Providers + +------+ + | Care Boat Repairer Name | Role | Phone | [...] + + | 02/21/ | Telephone | [facility] | Alex Sancehz, | Medication Refill | | 2018 | | Pain Center at | ,PhD [address] | Request (ketamine- | | | | [facility] | [facility] [address] | mail script to | | | | [address] | [place], [place] | patient) | | | | Mailcode: CH15 | [address] | | | | | [facility] | [phone] | | | | | and [address], | | | | | | | | | | | | [place], [place] | | | | | | [address] | | | | | | [phone] | | | +--------+ + + + [...]
--- OUTSIDE RECORDS SUMMARY | ~2020-03-23 | XMS | Encounter Summary ---
Demographics + + + | Address | [address] | | | [place] [address] | + + + | Home Phone [...] Providers + +------+ + | Care Pre Planning Advisor Name | Role | Phone | [...] Oliveira | | 2011 | IP | [address] | | House - Approved | | | | [place], | | | | | | [place] [address] | | | +--------+ + + + [...]
--- OUTSIDE RECORDS SUMMARY | ~2020-03-23 | XMS | Encounter Summary ---
Demographics + + + | Address | [address] | | | [place] [address] | + + + | Home Phone [...] Team Providers + +------+ + | Care Dryer Feeder Name | Role | Phone | [...] Pain Center at | ,PhD [address] [facility] | | | | | [facility] | [address] | | | | | [address] | [facility] [place] | | | | | Mailcode: CH15P | [address] | | | | | [facility] | [phone] | | | | | and [place], | | | | | | Building | | | | | | [place], [place] | | | | | | [address] | | | | | | [phone] | | | +--------+ + + + [...]
--- OUTSIDE RECORDS SUMMARY | ~2020-03-23 | XMS | Encounter Summary ---
Demographics + + + | Address | [address] | | | [place] [address] | + + + | Home Phone [...] Team Providers + +------+ + | Care Ab Initio Etl Developer Name | Role | Phone | + +------+ + | Justo Vazquez MD | PCP | | + +------+ + Encounter Details +--------+ + + + + | Date | Type | Department | Care Team | Description | +--------+ + + + + | 05/12/ | MyChart | Pain Center at [facility] | Ewa Melchor, | RE: Schedule change | | 2017 | Encounter | [address] | SPECIAL LIBRARIAN [address] | | | | | Mailcode: CH15P | [address] | | | | | [place] for [facility] | [place] [address] | | | | | and Healing, | [phone] | | | | | | | | | | | Floor [place], [place] | | | | | | [address] | | | | | | [phone] | | | +--------+ + + + [...]
--- OUTSIDE RECORDS SUMMARY | ~2020-03-23 | XMS | Encounter Summary ---
Demographics + + + | Address | [address] | | | [place] [address] | + + + | Home Phone [...] Providers + +------+ + | Care Tobacco Scrap Sifter Name | Role | Phone | [...] | | | 2015 | | Department [address] | [address] | | | | | [address] | [address] | | | | | [facility] | [place], [place] | | | | | [place], [place] | [address] | | | | | [address] | [phone] | | | | | [phone] | | | | | | | [...] about "Gastroparesis: Care Instructions", log into your [employer] account at [email or web address]. You can enter M106 in the [employer]" search box. Not on [employer]? Review the [employer] section of your After Visit Summary for directions on ho w to sign up. 3008-7788 [employer]. Care instructions adapted under license by [facility] [employer] [place]. This care instruction is for use with your licensed healthcar e professional. If you have questions about a medical condition or this instruction, always ask your healthcare professional. [employer] disclaims any warranty or liabili ty for your use of this information. Content Version: 11.0.529569; Current as of: October 03, 2015 documented [...] | | | LABORATORY | | | LATVIAN | | | SERVICES, | | | [...] | + + + + + | [facility] | [address] | [place] [address] | | | SERVICES, CORE | GUILLERMO [...] DEPT OF | [address] | [place], [place] | | | CARDIOLOGY | [address] | [address] | | + + + + + [...] [facility] | [address] | [place] [address] | | | SERVICES, CORE | [address] [...] [facility] | [address] | [place] [address] | | | SERVICES, LILLIAN | GUILLERMO [...] KEVIN SHAH | [address] | [place] [address] | | | SERVICES, CORE | [address] [...] | + + + + + | [facility] | [address] | [place] [address] | | | [facility] | [address] | | | + [...] organisms may result in clinically misleading | [facility] | | information due to the low numbers and /or mixture of organisms | | | present. Recollection is suggested if clinically indicated. | | + + + + + + + + | Performing | Address | City/State/Zipcode | Phone Number | | Organization | | | | + + + + + | [facility] | [address] | [place] [address] | | | [place] | | | | + + + [...] [facility] | [address] | [place] [address] | | | SERVICES, CORE | PARK [...] CENTER LABORATORY | [address] | [place] [address] | | | SERVICES, CORE | PARK [...] | + + + + + | [facility] | [address] [facility] | [place] [address] | | | SERVICES, CORE | GUILLERMO [...] | | | LABORATORY | | | LATVIAN | | | SERVICES, | | | [...] | + + + + + | [facility] | [address] | [place] [address] | | | SERVICES, CORE | [address] | | | + + + + + ED INFORMATION EXCHANGE (08/08/2016 12:21 PM PDT) + + + + + + | Component | Value | Ref Range | Performed | Pathologist | | | | | At | Signature | + + + + + + | [facility] | [id number] | | COLLECTIVE | | | | [id number] | | MEDICAL | | | | [...] | | | 08/08/2016 12:21 [facility] and | | | [facility] [place] Emergency [address]. abd pain | | | 08/04/2016 03:50 [facility] | | | [place] Emergency ABD PAIN,VOMITING 06/26/2016 22:44 | | | [facility] [place] | | | Emergency -Acquired absence of other specified parts of | | | | | | digestive | | | tract | | | | | | -Gastroparesis | | | | | | -Unspecified abdominal pain | | | | | | -Gastro-esophageal reflux disease without | | | esophagitis | | | | | | -Other research chef (current) drug therapy 06/22/2016 17:35 | | | [facility] [place] | | | Emergency -abd pain, "I have gastroparesis", since , seen | | | | | | at St | | | [facility] yesterday. has been to the er | | | | | | several times | | | | | | -Abdominal Pain | | | | | | -Gastroparesis 06/19/2016 | | | 04:51 [facility] [place] | | | [place] Emergency -Gastroparesis | | | | | | -Unspecified abdominal pain | | | | | | -Other research chef | | | (current) drug therapy | | | | | | -Acquired absence of other specified parts of | | | | | | digestive tract | | | 06/18/2016 07:18 [facility] | | | [place] Emergency [...] ------ --------- 1 | | | [facility] 1 | | | [facility] 8 [facility] | | | Total Note: Visits [...] COLLECTIVE MEDICAL | [address] | [place], [place] | [phone] | | TECHNOLOGIES | [address] | [address] | | + + + + + [...]
--- OUTSIDE RECORDS SUMMARY | ~2020-03-23 | XMS | Encounter Summary ---
Demographics + + + | Address | [address] | | | [place] [address] | + + + | Home Phone [...] Providers + +------+ + | Care Audit Intern Name | Role | Phone | [...] Pharmacy | | | | | | [address] | | | | | | Mailcode: [place] | | | | | | [facility] and | | | | | | Healing, Building [address] | | | | | | [place], [place] | | | | | | [address] | | | | | | [phone] | | | +--------+ + + + [...]
--- OUTSIDE RECORDS SUMMARY | ~2020-03-23 | XMS | Encounter Summary ---
Demographics + + + | Address | [address] | | | [place] [address] | + + + | Home Phone [...] + +------+ + | Care Director Of Academic Name | Role | Phone | + [...] | | | [address] | [place], [place] | | | | | Mailcode: Center | [address] | | | | | for Health and | [phone] | | | | | [facility] 2 | | | | | | [place], [place] | | | | | | [address] | | | | | | [phone] | | | +--------+ + + + [...]
--- OUTSIDE RECORDS SUMMARY | ~2020-03-23 | XMS | Encounter Summary ---
Demographics + + + | Address | [address] | | | [place] [address] | + + + | Home Phone [...] Providers + +------+ + | Care Dairy Cattle Farm Worker Name | Role | Phone [...] | | | | | syndrome | [facility] | [facility] | | | | | type 1 of | Rd | Rd [place], | | | | | left lower | [facility] [place] | [place] | | | | | extremity | [address] | [address] | | | | | Procedures | Phone: | Phone: | | | | | REQUEST TO | [phone] | [phone] | | | | | SURGERY | Fax: | Fax: | | | | | DRUG WORKER | [phone] | [phone] | +--------+---------+ + + + + Physical [...] | | | | regional | ,PhD [address] | OTPTRehab | | | | | pain | [facility] | [address] | | | | | syndrome | [facility] | [place] | | | | | type 1 of | Rd | [place] | | | | | left lower | [place], [place] | [address] | | | | | extremity | [address] | Phone: | | | | | Procedures | Phone: | [phone] | | | | | PHYSICAL | [phone] | Fax: | | | | | THERAPY | Fax: | [phone] | | | | | REFERRAL | [phone] | | +--------+--------+ + + + + [...] | | | | | Procedures | [place], [place] | Rd [place], | | | | | CONSULT TO | [address] | [place] | | | | | PAIN | | [address] | | | | | MANAGEMENT | | Phone: | | | | | | | [phone] | | | | | | | Fax: | | | | | | | [phone] | +--------+--------+ + + + + Encounter Details +--------+---------+ + + + | Date | Type | Department | Care Team | Description | +--------+---------+ + + + | 06/12/ | Office | [facility] Comprehensive | Alex Sanchez, | Complex regional | | 2018 | Visit | Pain Center at | ,PhD [address] [facility] | pain syndrome type 1 | | | | [facility] | [facility] [address] | of left lower | | | | [address] | [place], [place] | extremity (Primary | | | | Mailcode: CH15P | [address] | Dx) | | | | [facility] | [phone] | | | | | and Healing, | | | | | | | | | | | | Floor [place], [place] | | | | | | [address] | | | | | | [phone] | | | +--------+---------+ + + + [...] in the future, please contact me via Hookit to request an order to schedule. The procedure you discussed with your doctor is called: SCS DRG TRIAL LUMBAR [facility]. Please make sure this is scheduled with the American History Professor. PRE-PROCEDURE INSTRUCTIONS 1. Please bring a cdl team truck driver with you as we may give you medications that impair your ability to drive. This is necessary even if you do not receive sedation. You may take a taxi or ri [employer] if you are accompanied by a responsible [...] phone number for questions or concerns is [phone]. documented in this encounter Progress Notes Holly [...] MD,P hD - 06/12/2018 10:00 AM PDT [facility] Pain Center Return Visit Date: 06/12/2018 Chief [...] that this mildly agitated her neck pain. CUSTOMER SERVICE COORDINATOR Brief Pain Inventory: (ten= worst possible [...] History Social History Narrative Single. Goes to [employer] with a light load. Has been working at [employer], can' t work on [employer]. Has roommates. Allergies Allergen Reactions Morphine Anaphylaxis [...] by physician. Concentration is 150mg/mL. Compounded by [facility] ) KETOROLAC IM Inject into [...] and summary of old medical records (source: [employer] innovate | mentor | invest), as summarized in the body of the [...] to send me a mess age via Hookit to request referrals to acupuncture and massage [...] by Sonia Key. Alex Sanchez MD PhD Gimp Buttonhole Machine Operator Anesthesiology and Pain Management [facility] documented in t his encounter Plan [...]
--- OUTSIDE RECORDS SUMMARY | ~2020-03-23 | XMS | Encounter Summary ---
Demographics + + + | Address | [address] | | | [place] [address] | + + + | Home Phone [...] Team Providers + +------+ + | Care Kitchen Operator Name | Role | Phone | [...] [place] | | | | | | [address] | | | +--------+ + + + [...]
--- OUTSIDE RECORDS SUMMARY | ~2020-03-23 | XMS | Encounter Summary ---
Demographics + + + | Address | [address] | | | [place] [address] | + + + | Home Phone [...] Providers + +------+ + | Care Circus Trainer Name | Role | Phone | [...] Closed | | Orthopedics | Diagnoses | [place], | [facility] | | | | | Adjustment | Ranjeet Odom MD | [address] | | | | | disorder, | [address] | [address] | | | | | unspecified | Ave | Mailcode: | | | | | type | [place], [place] | [facility] Center | | | | | Procedures | [address] | for Health | | | | | CONSULT TO | Phone: | and Healing, | | | | | BEHAVIORAL | [phone] | Building 1, | | | | | HEALTH/PSYCH | Fax: | 12th Floor | | | | | IATRY - | [phone] | [place], [place] | | | | | ADULT | | [address] | | | | | | | Phone: | | | | | | | [phone] | | | | | | | Fax: | | | | | | | [phone] | +--------+--------+ + + + + Reason [...] | | syndrome | [address] | [place], [place] | | | | | type 1 of | Rd | [address] | | | | | left lower | [place], [place] | Phone: | | | | | extremity | [address] | [phone] | | | | | Procedures | Phone: | Fax: | | | | | CONSULT TO | [phone] | [phone] | | | | | ORTHOPEDICS | Fax: | | | | | | AND | [phone] | | | | | | REHABILITATI [...] | 2018 | Visit | Faculty at [place] | MD [address] | (Primary Dx); Left | | | | for Health and | [place], [place] | ankle pain, | | | | Healing [address] | [address] | unspecified | | | | Ave Mailcode: | [phone] | chronicity; | | | | [facility] | | Adjustment disorder, | | | | Health and Healing, | | unspecified type | | | | Building | | | | | | Floor [place], [place] | | | | | | [address] | | | | | | [phone] | | | +--------+---------+ + + + [...] by physician. Concentration is 150mg/mL. Compounded by [employer] ([phone]) levonorgestrel (MIRENA) 20 mcg/24 hr Intrauterine IUD [...] oral recon soln Take as directed by [facility] [employer] [facility]- 2 gallon bowel prep [...] become. f/u open ended Ranjeet Amanda M.D. Cash Register Balancer Foot and Ankle Surgery Department of Orthopedics & Rehabilitation [facility] [phone] >60 mins face to face consultation was [...]
--- OUTSIDE RECORDS SUMMARY | ~2020-03-23 | XMS | Encounter Summary ---
Demographics + + + | Address | [address] | | | [place] [address] | + + + | Home Phone [...] Providers + +------+ + | Care Leather Stretcher Name | Role | Phone | + [...] Shane | | | | | [facility] | [facility], | | | | | [address] | [place] [address] | | | | | Mailcode: CH15P | [phone] | | | | | [facility] | | | | | | and Healing, | | | | | | Building | | | | | | Floor [place], [place] | | | | | | [address] | | | | | | [phone] | | | +--------+ + + + [...]
--- OUTSIDE RECORDS SUMMARY | ~2020-03-23 | XMS | Encounter Summary ---
Demographics + + + | Address | [address] | | | [place] [address] | + + + | Home Phone [...] Team Providers + +------+ + | Care Stunt Woman Name | Role | Phone | + [...] 2016 | | Center at [facility] [address] | | severe stomach Pain) | | | | [address] | | | | | | Mailcode: [place] | | | | | | for Health and | | | | | | Healing, Building 2 | | | | | | [place], [place] | | | | | | [address] | | | | | | [phone] | | | +--------+ + + + [...]
--- OUTSIDE RECORDS SUMMARY | ~2020-03-23 | XMS | Encounter Summary ---
Demographics + + + | Address | [address] | | | [place] [address] | + + + | Home Phone [...] Team Providers + +------+ + | Care Ceramics Technician Name | Role | Phone | [...] | Request (ketamine) | | | | [facility] | [address] | | | | | [address] | [place], [place] | | | | | Mailcode: CH15P | [address] | | | | | [facility] | [phone] | | | | | and Healing, | | | | | | Building | | | | | | [place], [place] | | | | | | [address] | | | | | | [phone] | | | +--------+ + + + [...]
--- OUTSIDE RECORDS SUMMARY | ~2020-03-23 | XMS | Encounter Summary ---
Demographics + + + | Address | [address] | | | [place] [address] | + + + | Home Phone [...] Team Providers + +------+ + | Care Underwriting Clerk Name | Role | Phone | [...] Medical Records | | 2017 | | [place] [address] | | Review | | | | [address] | | | | | | Mailcode: [place] | | | | | | [facility] and | | | | | | [facility] 2 | | | | | | [place], [place] | | | | | | [address] | | | | | | [phone] | | | +--------+ + + + [...]
--- OUTSIDE RECORDS SUMMARY | ~2020-03-23 | XMS | Encounter Summary ---
Demographics + + + | Address | [address] | | | [place] [address] | + + + | Home Phone [...] Team Providers + +------+ + | Care Refinery Operator Alkylation Name | Role | Phone | + [...] + + | 12/05/ | Surgery | [facility] | Alex Sanchez, | BILATERAL DORSAL | | 2019 | | Center for Health | ,PhD [address] [facility] | ROOT GANGLION SPINAL | | | | and Healing Surgery | [address] | CORD STIMULATOR | | | | Center Admitting | [place], [place] | IMPLANT LUMBAR; | | | | Desk Located on the | [address] | POSTERIOR | | | | 4th floor [address] | [phone] | | | | | [address] [place], | | | | | | [place] [address] | | | +--------+---------+ + + + [...] s/p successful DRG trial lead system with [employer] on 09/25/2018. No changes in H&P, [...] HOSPITAL [place] | | | Tracie Farah [id number] :1990, presents to clinic | | | for: Dorsal root ganglion stimulator implant PROCEDURE: Dorsal | | | root ganglion stimulator implant PRE-OPERATIVE DIAGNOSIS: Complex | | | regional Pain syndrome type 1 of left lower extremity | | | POST-OPERATIVE DIAGNOSIS: Complex regional Pain syndrome type 1 of | | | left lower extremity ATTENDING PHYSICIAN: Alex Sanchez | | | STICK WELDER: Arben Valerio MD ANESTHESIA: sedation by IVIS Cole | | | Carmen, supervised by auto mechanic supervisor Ilir Valdes. | | | FINDINGS: Appropriate spread of IV contrast in the location of the | | | stellate ganglia without vascular or epidural uptake. IV Fluids: | | | per anesthesia record Estimated Blood Loss: minimal Drains, | | | Specimens, Complications: None INDICATIONS: Tracie aFrah | | | has a history of [...] to the | | | [facility] b2b outside sales representative. A test stimulation was performed [...] recovery. Images were saved, and sent to Yodio. | | | Alex Sanchez (attending) was present for the entire procedure. | | | Arben Valerio MD I was present for the entire procedure | | | (spinal cord stimulator implantation with DRG leads at left L4 and | | | L5) and all bocanegra elements of this visit. I reviewed the | | | documentation of the other PROGRAM STRATEGIST providers and concur with | | | Iman's findings. I edited his note. Alex Sanchez, | | | ,PhD Occupational Health Nurse Anesthesiology and Pain Management | | | [facility] | | + + + HCG [...] ANTONIO MIN | [address] [facility] | [place] [address] | | | OF CARE TESTS | [...]
--- OUTSIDE RECORDS SUMMARY | ~2020-03-23 | XMS | Encounter Summary ---
Demographics + + + | Address | [address] | | | [place] [address] | + + + | Home Phone [...] Team Providers + +------+ + | Care Core Drilling Supervisor Name | Role | Phone | [...] | CRPS | Janak Martinez MD | [facility] [address] | | | | | (complex | [address] | Pavilion | | | | | regional | [address] | [address] | | | | | pain | Mailstop | [address], | | | | | syndrome), | [id number] | Basement | | | | | lower limb | [place], [place] | [place], [place] | | | | | Procedures | [address] | [address] | | | | | [place] BONE &/[place] | Phone: | Phone: | | | | | JOINT | [phone] | [phone] | | | | | IMAGING 3 | Fax: | Fax: | | | | | PHASE | [phone] | [phone] | +--------+--------+ + + + + Encounter Details +--------+ + + + + | Date | Type | Department | Care Team | Description | +--------+ + + + + | 02/13/ | Hospital | Nuclear Medicine | | | | 2011 | Encounter | at [facility] [address] | | | | | | [address] | | | | | | [place], | | | | | | [place], | | | | | | [place] [address] | | | | | | [phone] | | | +--------+ + + + [...]
--- OUTSIDE RECORDS SUMMARY | ~2020-03-23 | XMS | Encounter Summary ---
Demographics + + + | Address | [address] | | | [place] [address] | + + + | Home Phone [...] Team Providers + +------+ + | Care Billboard Poster Name | Role | Phone | + [...] + + | 10/21/ | Hospital | [place] [address] [address] | [place], | | | 2015 - | Encounter | [facility] | MD T[address] | | | | | [address] [place] [address] | [facility] | | | 10/25/ | | [place], [place] | [place], [place] | | | 2014 | | [address] | [address] | | | | | [phone] | [phone] | | | | | | | | | | | | Clifton Childers | | | | | | MD Nhan [address] [facility] | | | | | | [facility] | | | | | | [place], [place] | | | | | | [address] | | | | | | [phone] | | | | | | | [...] Followed by Dr. Katy berrios at [facility] in [place], [place]. Has been on a stable regimen [...] agreeable with our plans. Clifton Childers MD Quarter Trimmer Division of Hospital Medicine Teaching Attending I [...] nausea well controlled, good conversation with Dr. Cihlders this afternoon, th inking about discharge tomorrow [...] Followed by Dr. Katy berrios at [facility] in [place], [place], has been on a stable regimen [...] and plan. Lolita Ma MD, MPH Pager #[phone] PGY-1, Anesthesiology [facility] Associated attestation - Clifton Childers [...] agreeable with our plans. Clifton Childers MD Quarter Trimmer Division of Hospital Medicine Teaching Attending I [...] Followed by Dr. Katy berrios at [facility] in [place], [place], has been on a stable regimen [...] and plan. Lolita Ma MD, MPH Pager #[phone] PGY-1, Anesthesiology [facility] Associated attestation - Clifton Childers [...] history, primarily secondary to CPRS in the [facility] [place] ng of complicated ankle fracture age ~12 [...] would like the patient to establish in group home counseling and/or CBT as an outpatient if willing. Patient/Family Goals & Expectations: Above problems discussed with the patient who understands and is agreeable with our plans. Clifton Childers MD Quarter Trimmer Division of Hospital Medicine Teaching Attending I [...] good coping mechanism Heme/Lymphatic: negative Endocrine: negative Hospital Clerk: negative Past Medical History: History of [...] for he r CRPS in the [facility]m [facility] pharmacy does not carry this so we are trying to arrange for her to take her home medication via pharmacy approval 5. APS will sign off but please call with questions/concerns Aba Dorman MD, PGY 3 Senior Ecologist [place]-2 APS Pager: [phone] BILLING INFORMATION Deferred to attending physician. Ms. [...] up at this point. Please contact APS (#[id number]) if further assistance is needed. Ulices Lopez MD BILLING INFORMATION [facility] DEPARTMENT: [id number] Place of Service:- Inpatient Date of Service: 10/23/2015 CSN: [id number] Suggested Modifier: GC - Resident Involved Suggested CPT: 08766 - Follow up visit (includes PNB) - [...] today recd call from Dr. Madrid from [facility]. She has known pt for many yea rs and suggested ketamine and propofol gtt. Updated her on APS recommendations. She will hav e her office fax her clinic records to us. Pt was seen with Dr. Childers. Milton Moreau MD PGY-3, Internal Medicine Pager [phone] Pro Edwards RN - 10/22/2015 10:06 AM PSTActing as scribe for the UR Committee Physician named below. The primary medical team for this patient and the [facility] UR Committee have agreed after furth er study that an inpatient admission was not medically necessary. This hospital stay is con verted to an outpatient stay through use of Medicare Condition Code 44. The patient was not ified of this change in writing. The providers involved in this decision were: For patient s primary medical team: Melissa Childers MD For [facility] UR Committee: Kerry HARRIS RN CM [...] + | [facility] | [address] | [place] [address] | | | SERVICES, CORE | PARK [...] | + + + | STAT | LASU | | | LABORATORY | | | LILLIAN CROSS | + + + + + + + + | Performing | Address | City/State/Zipcode | Phone Number | | Organization | | | | + + + + + | [facility] | [address] | [place] [address] | | | SERVICESLILLIAN | [address] [...] the MDRD equation recommended by the | [facility] | | National Kidney Disease Education [...] [facility] | [address] | [place] [address] | | | SERVICES, CORE | PARK [...] | + + + + + | [facility] | [address] | [place] [address] | | | SERVICES, CORE | GUILLERMO [...] [facility] | [address] | [place] [address] | | | SERVICES, CORE | PARK [...] | + + + + + | [facility] | [address] | [place] [address] | | | SERVICES, CORE | PARK [...] + | [facility] | [address] [facility] | [place] [address] | | | SERVICES, CORE | GUILLERMO [...] KEVIN SHAH | [address] | [place] [address] | | | SERVICES, CORE | PARK [...] | | | | | 1 dose, [facility] 10/23/15 at 1245 | | PM PST | | | | + +-------+ +-------+---+---+ +---+---+ | | | +---+---+ + +-------+ +--------+---+---+ | ibuprofen (MOTRIN) tablet 600 | Given | 10/25/20 | 600 mg | | | | mg 600 mg, oral, EVERY 6 HOURS, | | 15 8:05 | | | | | First dose on [facility] 10/23/15 at | | AM PST [...] | | | | | NEEDED, Starting [facility] 10/23/15 at | | | | [...]
--- OUTSIDE RECORDS SUMMARY | ~2020-03-23 | XMS | Encounter Summary ---
Demographics + + + | Address | [address] | | | [place] [address] | + + + | Home Phone [...] Providers + +------+ + | Care Tool Mechanic Name | Role | Phone | [...] Medical Records | | 2017 | | [place] [address] | | Review | | | | [address] | | | | | | Mailcode: [place] | | | | | | [facility] and | | | | | | [facility] 2 | | | | | | [place], [place] | | | | | | [address] | | | | | | [phone] | | | +--------+ + + + [...]
--- OUTSIDE RECORDS SUMMARY | ~2020-03-23 | XMS | Encounter Summary ---
Demographics + + + | Address | [address] | | | [place] [address] | + + + | Home Phone [...] + + + | Author | [facility] and Services Kitchen | | | and Marvinana | + + + | Organization | [facility] and [facility] | | | and [...] [place] | | | | | [address] | | + + + + + | Bryant Farah | ECON | Unknown | | + + + + + Care Team Providers + +------+ + | Care Electrotyper Name | Role | Phone | + +------+ + PCP | Unavailable | + +------+ + Encounter Details +--------+ + + + + | Date | Type | Department | Care Team | Description | +--------+ + + + + | 03/16/ | Hospital | [facility] GENER[facility] IP | Conversion | Back pain | | 2013 | Encounter | CONVERSION [address] | Transaction, | | | | | [address] | Provider Unknown | | | | | [place], [place] | [phone] | | | | | [address] | | | | | | [phone] | | | +--------+ + + + [...]
--- OUTSIDE RECORDS SUMMARY | ~2020-03-23 | XMS | Encounter Summary ---
Demographics + + + | Address | [address] | | | [place] [address] | + + + | Home Phone [...] Team Providers + +------+ + | Care Training And Quality Manager Name | Role | Phone | + +------+ + | Allegra Gandhi | PCP | | + +------+ + Encounter Details +--------+ + + + + | Date | Type | Department | Care Team | Description | +--------+ + + + + | 03/01/ | Results | [facility] | Janak Riojas, | | | 2011 | Only | Pain Center at | MD [address] [facility] | | | | | [facility] | [facility] [id number] | | | | | [address] | [place], [place] | | | | | Mailcode: CH15 | [address] | | | | | [place] for [facility] | [phone] | | | | | and Martina, | | | | | | | | | | | | Floor [place], [place] | | | | | | [address] | | | | | | [phone] | | | +--------+ + + + [...]
--- OUTSIDE RECORDS SUMMARY | ~2020-03-23 | XMS | Encounter Summary ---
Demographics + + + | Address | [address] | | | [place] [address] | + + + | Home Phone [...] Providers + +------+ + | Care Education Professor Name | Role | Phone | + +------+ + | Justo Vazquez MD | PCP | | + +------+ + Encounter Details +--------+ + + + + | Date | Type | Department | Care Team | Description | +--------+ + + + + | 05/12/ | MyChart | Pain Center at [facility] | Ewa Melchor, | RE: Schedule change | | 2017 | Encounter | [address] | BIG DATA DEVELOPER [address] | | | | | Mailcode: CH15P | [address] | | | | | [place] for [facility] | [place] [address] | | | | | and Healing, | [phone] | | | | | | | | | | | Floor [place], [place] | | | | | | [address] | | | | | | [phone] | | | +--------+ + + + [...]
--- OUTSIDE RECORDS SUMMARY | ~2020-03-23 | XMS | Encounter Summary ---
Demographics + + + | Address | [address] | | | [place] [address] | + + + | Home Phone [...] Team Providers + +------+ + | Care Derrick Boat Runner Name | Role | Phone | [...] | | | | | Giuliana Maldon[place], | | | | | | [place] [address] | | | +--------+ + + + [...]
--- OUTSIDE RECORDS SUMMARY | ~2020-03-23 | XMS | Encounter Summary ---
[...] Providers + +------+ + | Care Loss Prevention Guard Name | Role | Phone | + +------+ + | Allegra Gandhi | PCP | | + +------+ + Encounter Details +--------+ + + + + | Date | Type | Department | Care Team | Description | +--------+ + + + + | 02/13/ | Hospital | Nuclear Medicine | | | | 2011 | Encounter | at [facility] [address] | | | | | | [address] | | | | | | [address], | | | | | | [address] [place], | | | | | | [place] [address] | | | | | | [phone] | | | +--------+ + + + [...]
--- OUTSIDE RECORDS SUMMARY | ~2020-03-23 | XMS | Encounter Summary ---
Demographics + + + | Address | [address] | | | [place] [address] | + + + | Home Phone [...] Providers + +------+ + | Care Security Advisor Name | Role | Phone | + +------+ + | Allegra Gandhi | PCP | | + +------+ + Encounter Details +--------+ + + + + | Date | Type | Department | Care Team | Description | +--------+ + + + + | 02/13/ | Hospital | Nuclear Medicine | | | | 2011 | Encounter | at [facility] [address] | | | | | | [address] | | | | | | [address], | | | | | | [address] [place], | | | | | | [place] [address] | | | | | | [phone] | | | +--------+ + + + [...]
--- OUTSIDE RECORDS SUMMARY | ~2020-03-23 | XMS | Encounter Summary ---
Demographics + + + | Address | [address] | | | [place] [address] | + + + | Home Phone [...] | [facility] | Ilene rBight, | | | 2019 | | Pain Center at | COMPRESSOR BATTERY PELLETS [address] | | | | | [facility] | [place], [place] | | | | | [address] | [address] | | | | | Mailcode: CH15P | [phone] | | | | | [facility] | | | | | | and Healing, | | | | | | | | | | | | Floor [place], [place] | | | | | | [address] | | | | | | [phone] | | | +--------+ + + + [...]
--- OUTSIDE RECORDS SUMMARY | ~2020-03-23 | XMS | Encounter Summary ---
Demographics + + + | Address | [address] | | | [place] [address] [...] Providers + +------+ + | Care Painter Decorator Name | Role | Phone | + +------+ + | Justo Vazquez MD | PCP | | + +------+ + Encounter Details +--------+ + + + + | Date | Type | Department | Care Team | Description | +--------+ + + + + | 06/12/ | Hospital | Radiology/Imaging | Alex Sanchez, | | | 2018 | Encounter | Lab at [facility] [address] | ,PhD [address] [facility] | | | | | [address] Mailcode: | [address] | | | | | [address] for | [place], [place] | | | | | Health and Healing, | [address] | | | | | [place] [address] [facility] | [phone] | | | | | [place], [place] | | | | | | [address] | | | | | | [phone] | | | +--------+ + + + [...]
--- OUTSIDE RECORDS SUMMARY | ~2020-03-23 | XMS | Encounter Summary ---
Demographics + + + | Address | [address] | | | [place] [address] | + + + | Home Phone [...] Providers + +------+ + | Care Manager Search Engine Name | Role | Phone | [...] | | | | Ave Mailcode: [facility] | [place], [place] | | | | | [facility] | [address] | | | | | Health and Healing, | [phone] | | | | | [place] [address] | | | | | | [place], [place] | | | | | | [address] | | | | | | [phone] | | | +--------+ + + + [...] Discharge Instructions Instructions Darlin Doyle RN - 12/14/2016[place] Care Instructions after Colonoscopy You may resume [...] on weekends and holidays call the Hospital Game Technician toll free [phone]- [phone] Ext. [phone] or and have the GI doctor individual pension consultant paged. The provider who performed your [...] Farah is a 26 y.o. female MR# [id number] presents today for colonoscopy NPO since midnight [...]
--- OUTSIDE RECORDS SUMMARY | ~2020-03-23 | XMS | Encounter Summary ---
Demographics + + + | Address | [address] | | | [place] [address] | + + + | Home Phone [...] + + | 08/07/ | Telephone | [facility] | Alex Sanchez, | | | 2019 | | Pain Center at | ,PhD [address] | | | | | [facility] | [address] | | | | | [address] | [facility] [place] | | | | | Mailcode: CH15P | [address] | | | | | [facility] | [phone] | | | | | and Healing, | | | | | | | | | | | | Floor [place], [place] | | | | | | [address] | | | | | | [phone] | | | +--------+ + + + [...]
--- OUTSIDE RECORDS SUMMARY | ~2020-03-23 | XMS | Encounter Summary ---
Demographics + + + | Address | [address] | | | [place] [address] | + + + | Home Phone [...] Providers + +------+ + | Care Cotton Bag Sewer Name | Role | Phone | [...] + | 10/06/ | Telephone | [facility] Comprehensive | Yosef Kenney MD | Dermatitis | | 2018 | | Pain Center at | [address] | | | | | [facility] | [facility] | | | | | [address] | [place] [address] | | | | | Mailcode: CH15P | [phone] | | | | | [facility] | | | | | | [address]ana Mack, | | | | | | Building | | | | | | [place], [place] | | | | | | [address] | | | | | | [phone] | | | +--------+ + + + [...]
--- OUTSIDE RECORDS SUMMARY | ~2020-03-23 | XMS | Encounter Summary ---
Demographics + + + | Address | [address] | | | [place] [address] | + + + | Home Phone [...] Team Providers + +------+ + | Care Varnish Mixer Name | Role | Phone | [...] Medical Records | | 2017 | | [place] [address] | | Review | | | | [address] | | | | | | Mailcode: [place] | | | | | | [facility] and | | | | | | [facility] 2 | | | | | | [place], [place] | | | | | | [address] | | | | | | [phone] | | | +--------+ + + + [...]
--- OUTSIDE RECORDS SUMMARY | ~2020-03-23 | XMS | Encounter Summary ---
Demographics + + + | Address | [address] | | | [place] [address] | + + + | Home Phone [...] Providers + +------+ + | Care Mine Motor Operator Name | Role | Phone | + +------+ + | Justo Vazquez MD | PCP | | + +------+ + Encounter Details +--------+ + + + + | Date | Type | Department | Care Team | Description | +--------+ + + + + | 03/12/ | Telephone | [facility] | Alxe Sanchez, | | | 2019 | | Pain Center at | ,PhD [address] | | | | | [facility] | [facility] [address] | | | | | [address] | [facility] [place] | | | | | Mailcode: CH15P | [address] | | | | | [place] for [facility] | [phone] | | | | | and Healing, | | | | | | | | | | | | Floor [place], [place] | | | | | | [address] | | | | | | [phone] | | | +--------+ + + + [...]
--- OUTSIDE RECORDS SUMMARY | ~2020-03-23 | XMS | Encounter Summary ---
Demographics + + + | Address | [address] | | | [place] [address] | + + + | Home Phone [...] Providers + +------+ + | Care Cement Mixer Name | Role | Phone | [...] | Diagnoses | Beulah | Edu Pt Civil Service Clerk | | | | Therapy | CRPS | Janak Martinez MD | [address] | | | | | (complex | [address] | | | | | regional | [address] | Mailcode: | | | | | pain | Mailstop | [facility] | | | | | syndrome), | [id number] | for Health | | | | | lower limb | [place], [place] | and Healing, | | | | | Gait | [address] | [address] | | | | | disturbance | Phone: | [place], [place] | | | | | Muscle pain | [phone] | [address] | | | | | Procedures | Fax: | Phone: | | | | | PHYSICAL | [phone] | [phone] | | | | | THERAPY | [...] regional pain | | | | [facility] | [place] [address] | syndrome), lower | | | | [address] | [phone] | limb (Primary Dx) | | | | Mailcode: CH3P | | | | | | [facility] | | | | | | and Healing, | | | | | | [address] | | | | | | Floor [place], [place] | | | | | | [address] | | | | | | [phone] | | | +--------+---------+ + + + [...] might be different f rom the original. [id number] BRODY FARAH Date of : 1990 Start [...] CENTER Outpatient Rehabilitation Services Mailcode: Ch3p [address] [facility], 1st [facility] [address] documented in this encounter Plan of Treatment Not on filedocumented as of this encounter Procedures + +--------+ + + + | Procedure Name | Priori | Date/Time | Associated Diagnosis | Comments | | | ty | | | | + +--------+ + + + | [place] THERAPEUTIC | Routin | 06/13/2012 | CRPS [...]
--- OUTSIDE RECORDS SUMMARY | ~2020-03-23 | XMS | Encounter Summary ---
Demographics + + + | Address | [address] | | | [place] [address] | + + + | Home Phone [...] Providers + +------+ + | Care Respiratory Clinician Name | Role | Phone | + +------+ + | Justo Vazquez MD | PCP | | + +------+ + Encounter Details +--------+ + + + + | Date | Type | Department | Care Team | Description | +--------+ + + + + | 12/07/ | Pharmacy | [facility] | | | | 2019 | Visit | & Healing Pharmacy | | | | | | [address] | | | | | | Mailcode: [place] | | | | | | [facility] and | | | | | | Healing, Building 1 | | | | | | [place], [place] | | | | | | [address] | | | | | | [phone] | | | +--------+ + + + [...]
--- OUTSIDE RECORDS SUMMARY | ~2020-03-23 | XMS | Encounter Summary ---
Demographics + + + | Address | [address] | | | [place] [address] | + + + | Home Phone [...] Team Providers + +------+ + | Care Trash Truck Driver Name | Role | Phone [...] on | Pain Center at | [address] [facility] | evaluation (No | | | | [facility] | [facility] [id number] | evidence of drug | | | | [address] | [place], [place] | abuse) | | | | Mailcode: [facility] | [address] | | | | | [facility] | [phone] | | | | | and Healing, | | | | | | Building | | | | | | Floor [place], [place] | | | | | | [address] | | | | | | [phone] | | | +--------+ + + + [...]
--- OUTSIDE RECORDS SUMMARY | ~2020-03-23 | XMS | Encounter Summary ---
Demographics + + + | Address | [address] | | | [place] [address] | + + + | Home Phone [...] Providers + +------+ + | Care Concrete Vault Maker Name | Role | Phone | + +------+ + | Justo Vazquez MD | PCP | | + +------+ + Encounter Details +--------+ + + + + | Date | Type | Department | Care Team | Description | +--------+ + + + + | 07/30/ | Telephone | [facility] | Alex Sanchez, | | | 2019 | | Pain Center at | ,PhD [address] | | | | | [facility] | [facility] | | | | | [address] | [facility] [place] | | | | | Mailcode: CH15P | [address] | | | | | [place] for [facility] | [phone] | | | | | and Healing, | | | | | | | | | | | | Floor [place], [place] | | | | | | [address] | | | | | | [phone] | | | +--------+ + + + [...]
--- OUTSIDE RECORDS SUMMARY | ~2020-03-23 | XMS | Encounter Summary ---
Demographics + + + | Address | [address] | | | [place] [address] | + + + | Home Phone [...] Providers + +------+ + | Care Tire Builder Name | Role | Phone | + +------+ + | Justo Vazquez MD | PCP | | + +------+ + Encounter Details +--------+ + + + + | Date | Type | Department | Care Team | Description | +--------+ + + + + | 10/20/ | Telephone | [facility] | Ilene Bright, | | | 2017 | | Pain Center at | VISUAL AID EXPERT [address] | | | | | [facility] | [place], [place] | | | | | [address] | [address] | | | | | Mailcode: CH15P | [phone] | | | | | [facility] | | | | | | and Healing, | | | | | | | | | | | | Floor [place], [place] | | | | | | [address] | | | | | | [phone] | | | +--------+ + + + [...]
--- OUTSIDE RECORDS SUMMARY | ~2020-03-23 | XMS | Encounter Summary ---
Demographics + + + | Address | [address] | | | [place] [address] | + + + | Home Phone [...] + +------+ + | Care Vice President Payer Name | Role | Phone | + +------+ + | Justo Vazquez MD | PCP | | + +------+ + Encounter Details +--------+ + + + + | Date | Type | Department | Care Team | Description | +--------+ + + + + | 06/07/ | Telephone | [facility] | Alex Sanchez, | | | 2019 | | Pain Center at | ,PhD [address] | | | | | [facility] | [address] | | | | | [address] | [facility] [place] | | | | | Mailcode: CH15P | [address] | | | | | [facility] for [facility] | [phone] | | | | | and Healing, | | | | | | | | | | | | Floor [facility] [place] | | | | | | [address] | | | | | | [phone] | | | +--------+ + + + [...]
--- OUTSIDE RECORDS SUMMARY | ~2020-03-23 | XMS | Encounter Summary ---
Demographics + + + | Address | [address] | | | [place] [address] | + + + | Home Phone [...] Providers + +------+ + | Care Vocational Psychologist Name | Role | Phone | [...] | | | | left lower | [place], [place] | [place] | | | | | extremity | [address] | [address] | | | | | Muscle pain | Phone: | Phone: | | | | | Procedures | [phone] | [phone] | | | | | REQUEST TO | Fax: | Fax: | | | | | SURGERY | [phone] | [phone] | | | | | FLIGHT TEST MECHANIC | | | +--------+---------+ + + + [...] | syndrome | [address] | | | | | type 1 of | Rd | Rd [place], | | | | | left lower | [place], [place] | [place] | | | | | extremity | [address] | [address] | | | | | Muscle pain | Phone: | Phone: | | | | | Procedures | [phone] | [phone] | | | | | REQUEST TO | Fax: | Fax: | | | | | SURGERY | [phone] | [phone] | | | | | FLIGHT TEST MECHANIC | | | | | | | [...] | | | | | unspecified | [address] | | | | | location | Rd | [address] | | | | | Procedures | [place] | [place], | | | | | CONSULT TO | [address] | [place] | | | | | PAIN | | [address] | | | | | MANAGEMENT | | Phone: | | | | | | | [phone] | | | | | | | Fax: | | | | | | | [phone] | +--------+--------+ + + + + Encounter [...] | [facility] | [address] | of left lower | | | | [address] | [place], [place] | extremity (Primary | | | | Mailcode: CH15P | [address] | Dx); Muscle pain; | | | | [place] for [facility] | [phone] | Pain of upper | | | | and Healing, | | abdomen | | | | | | | | | | Floor [place], [place] | | | | | | [address] | | | | | | [phone] | | | +--------+---------+ + + + [...] the time to see us in the [facility]. It was great [...] make sure this is scheduled with the Big Data Platform Architect. PRE-PROCEDURE INSTRUCTIONS 1. Please bring a milk tanker driver with you as we may give [...] phone number for questions or concerns is [phone]. documented in this encounter Progress Notes Charline [...] female, whose last appoi ntment at the [facility] was October 11, 2017, for [...] was treated by Christie Madrid MD in [place], [place] for three years before she abruptly ended her practice due to illness. This left her without a doctor to help her manage her chronic pain. In addition to her CRPS symptoms (diagnosed 2010), she has some sto mach issues that she has been working with Ilene Childs DNP, SHELLFISH BED WORKER-C. She has a scar on her stomach [...] a lot of great improvements while in [place], [place]. Weaning her off of the narcotic [...] her medical history that she spent in [place], [place] where she part ook in a [...] Spinal cord stimulator trial - Nerve blocks PULP PRESS TENDER Brief Pain Inventory: (ten= worst possible [...] Hemroidectomy Trial spinal cord stimulator leads 08/02/2012 [facility], Surgeon: Janak Riojas MD Cholecystectomy [...] History Social History Narrative Single. Goes to [employer] with a light load. Has been working at [employer], can' t work on [employer]. Has roommates. Allergies Allergen Reactions Morphine Anaphylaxis [...] by physician. Concentration is 150mg/mL. Compounded by [facility] ( [phone]) LAMOTRIGINE 200 MG TABLET Take 1 tablet [...] GRAM-5.86 GRAM SOLUTION Take as directed by [facility] Digestive [facility]- 2 gallon bowel prep POLYETHYLENE GLYCOL [...] and summary of old medical records (source: [employer]), as summarized in the body of the [...] to her by Christie Madrid MD in [place], [place]. As she has since left the [...] I jacqueline poon spoken with our medical transcriptionist, Evelia Gonzalez MD who agrees that as [...] peripheral nerve stimulation. As she lives in [place], [place] with her family (3.5 hours away), [...] with this patient as record ed by Snoia Key. Alex Sanchez MD PhD Career Consultant Anesthesiology and Pain Management [facility] Post visit: I reviewed the UDS, [...] + + + + + | [facility] | [address] | [place] [address] | | | SERVICES, CORE | GUILLERMO [...]
--- OUTSIDE RECORDS SUMMARY | ~2020-03-23 | XMS | Encounter Summary ---
Demographics + + + | Address | [address] | | | [place] [address] | + + + | Home Phone [...] Providers + +------+ + | Care Public Transit Bus Driver Name | Role | Phone | + +------+ + | Justo Vazquez MD | PCP | | + +------+ + Encounter Details +--------+------+ + + + | Date | Type | Department | Care Team | Description | +--------+------+ + + + | 12/14/ | Lab | Laboratory at [facility] | | Complex regional | | 2018 | | [address] | | pain syndrome type 1 | | | | [place], [place] | | of left lower | | | | [address] | | extremity; Muscle | | | | [phone] | | pain | +--------+------+ + + [...] | + + + + + | [facility] | [address] [facility] | [place] [address] | | | SERVICES, LILLIAN | GUILLERMO [...]
--- OUTSIDE RECORDS SUMMARY | ~2020-03-23 | XMS | Encounter Summary ---
Demographics + + + | Address | [address] | | | [place] [address] | + + + | Home Phone [...] Team Providers + +------+ + | Care Transaction Coordinator Name | Role | Phone | [...] + + | 10/06/ | Telephone | [facility] Comprehensive | Yosef Kenney MD | Dermatitis | | 2018 | | Pain Center at | [address] | | | | | [facility] | [facility] | | | | | [address] | [place] [address] | | | | | Mailcode: CH15P | [phone] | | | | | [facility] | | | | | | [address], | | | | | | Building | | | | | | [place], [place] | | | | | | [address] | | | | | | [phone] | | | +--------+ + + + [...]
--- OUTSIDE RECORDS SUMMARY | ~2020-03-23 | XMS | Encounter Summary ---
Demographics + + + | Address | [address] | | | [place] [address] | + + + | Home Phone [...] Team Providers + +------+ + | Care Mushroom Picker Name | Role | Phone | [...] | | Pain Center at | TANK STAVE ASSEMBLER [address] | | | | | [facility] | [place], [place] | | | | | [address] | [address] | | | | | Mailcode: CH15P | [phone] | | | | | [facility] | | | | | | [address], | | | | | | Building | | | | | | Floor [place], [place] | | | | | | [address] | | | | | | [phone] | | | +--------+ + + + [...]
--- OUTSIDE RECORDS SUMMARY | ~2020-03-23 | XMS | Encounter Summary ---
Demographics + + + | Address | [address] | | | [place] [address] | + + + | Home Phone [...] Team Providers + +------+ + | Care Microbial Specialist Name | Role | Phone | + +------+ + | Justo Vazquez MD | PCP | | + +------+ + Encounter Details +--------+ + + + + | Date | Type | Department | Care Team | Description | +--------+ + + + + | 12/05/ | Procedure | [facility] | | | | 2019 | Pass | [facility] | | | | | | and Healing Surgery | | | | | | Center Admitting | | | | | | Desk Located on the | | | | | | 4th floor [address] | | | | | | [address] [place], | | | | | | [place] [address] | | | +--------+ + + + [...]
--- OUTSIDE RECORDS SUMMARY | ~2020-03-23 | XMS | Encounter Summary ---
Demographics + + + | Address | [address] | | | [place] [address] | + + + | Home Phone [...] Providers + +------+ + | Care Hvac Sheet Metal Installer Name | Role | Phone | [...] | | | regional | [place] | [address] | | | | | pain | FAMILY | Mailstop | | | | | syndrome), | MEDICINE P | [address] | | | | | lower limb | [address] | [place], [place] | | | | | Pain in | [place], | [address] | | | | | joint, lower | [place] [address] | Phone: | | | | | leg | Phone: | [phone] | | | | | Procedures | [phone] | Fax: | | | | | REQUEST TO | Fax: | [phone] | | | | | SURGERY | [phone] | | | | | | AUTOMATIC HEMMER | | | +--------+--------+ + + + [...] | | | 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 | FAMILY | Mailstop | | | | | of lower | MEDICINE P | [id number] | | | | | limb | [address] | [place], [place] | | | | | | [place], | [address] | | | | | | [place] [address] | Phone: | | | | | | Phone: | [phone] | | | | | | [phone] | Fax: | | | | | | Fax: | [phone] | | | | | | [phone] | | +--------+--------+ + + + + Encounter Details +--------+---------+ + + + | Date | Type | Department | Care Team | Description | +--------+---------+ + + + | 06/06/ | Office | [facility] Comprehensive | Dale Cantu, | CRPS (complex | | 2011 | Visit | Pain Center at | MD [address] [facility] | regional pain | | | | [facility] | [facility] [id number] | syndrome), lower | | | | [address] | [place], [place] | limb; Pain in joint, | | | | Mailcode: CH15P | [address] | lower leg | | | | [facility] | [phone] | | | | | and Healing, | | | | | | | | | | | | Floor [place], [place] | | | | | | [address] | | | | | | [phone] | | | +--------+---------+ + + + [...] Dale Cantu MD - 06/06/2012 11:49 [facility] Pre-Procedure Instructions: The procedure you discussed with your doctor is called: SCS TRIAL LUMBAR [facility]. Please make sure this is scheduled with the Division Roadmaster. Please bring a jitney driver with you. We may give you medications that make you drowsy or otherw ise unsafe to drive. If you do not have a jitney driver, we will not be able to [...] PLEASE CONTACT THE COMPREHENSIVE PAIN CENTER AT [phone] ([phone]) FOR QUESTIONS OR IF YOU NEED TO CANCEL YOUR APPOINTMENT. [facility] Comprehensive Pain Center documented in this [...] not signed. Given information. DALE CANTU MD Nut Sheller, Comprehensive Pain Center Pre K Special Education Teacher, Pain Medicine Professor, Anesthesiology & Perioperative Medicine ollHomer manriquez MD - 06/06/2012 11:17 AM PDT [facility] Pain Center Return [...] Managing Pain Before It Manages You, by Taylre Talavera M.D., Ph.D. was recom mended to [...] and a pain drawing which I reviewed. [facility] Brief Pain Inventory: (ten= worst possible [...] The Review of Systems obtained by the FURNITURE SPRAYER was reviewed. Additional Review of Systems: Bones, [...] up with Dr. Dale Cantu at the [facility] today for left foot CRPS which [...] S; Wes A; Sriram S; Juvenal S; Ntao K; Ryan jones H; Lydia Torres. Adapted [...] [facility] Pain [place] vEelia Parsons - 11:07 AM PDTCMA History: 1. [...]
--- OUTSIDE RECORDS SUMMARY | ~2020-03-23 | XMS | Encounter Summary ---
Demographics + + + | Address | [address] | | | [place] [address] | + + + | Home Phone [...] Team Providers + +------+ + | Care Nurses' Aide Name | Role | Phone | [...] | | pain | [address] | [place], [place] | | | | | syndrome | [place], [place] | [address] | | | | | type 1 of | [address] | Phone: | | | | | left lower | Phone: | [phone] | | | | | extremity | [phone] | Fax: | | | | | Midline low | Fax: | [phone] | | | | | back pain | [phone] | | | | | | without [...] Ave | | | | | | [place], [place] | [facility] [place] | | | | | | [address] | [address] | | | | | | Phone: | Phone: | | | | | | [phone] | [phone] | | | | | | Fax: | Fax: | | | | | | [phone] | [phone] | +--------+---------+ + + + + Encounter Details +--------+---------+ + + + | Date | Type | Department | Care Team | Description | +--------+---------+ + + + | 07/04/ | Office | [facility] Comprehensive | Lane Reyes, | Complex regional | | 2019 | Visit | Pain Center at | [place] [address] | pain syndrome type 1 | | | | [place] | [place], [place] | of left lower | | | | [address] | [address] | extremity (Primary | | | | Mailcode: CH15 | [phone] | Dx); Midline low | | | | [place] [facility] | | back pain without | | | | and Healing, | | sciatica, | | | | | | unspecified | | | | Floor [place], [place] | | chronicity; | | | | [address] | | Sacroiliac pain; | | | | [phone] | | Sacral dysfunction; | | | [...] and help in coping with the pain. BATTERY TESTER Brief Pain Inventory: (ten= worst possible [...] a light load. Has been working at [employer], can' t work on crutches. Has roommates. [...] GRAM SOLUTION Take as directed by [facility] Digestive Health- 2 gallon bowel prep POLYETHYLENE GLYCOL 3350 17 GRAM/DOSE ORAL POWDER Take 17 g by mouth once daily. PROMETHAZINE 12.5 MG TABLET Take 1 tablet by mouth four times daily as needed for nausea/vo miting. SUCRALFATE 1 GRAM TABLET Take 1 g by mouth four times daily. Radiology/Diagnostic Tests: X-RAY SPINE CERV 4 VIEWS Order: [id number] Performed: 06/12/2018 11:40 Status: Final result Visible [...] the treatment performed by the chiropractic internet retailer, Niesha Reveles, was directly observed by myself the primary chiropractor Lane Reyes [place] Visit Diagnoses: ICD-10-CM 1. Complex regional pain syndrome type 1 of left lower extremity G90.522 CONSULT TO PAIN [facility] 2. Midline low back pain without sciatica, unspecified chronicity M54.5 CONSULT TO PAIN [facility] 3. Sacroiliac pain M53.3 CONSULT TO PAIN MANAGEMENT [facility] MANIP,SPINAL,1-2 REGIONS 4. Sacral dysfunction M53.3 [facility] MANIP,SPINAL,1-2 REGIONS 5. Somatic dysfunction of pelvis region M99.05 [facility] MANIP,SPINAL,1-2 REGIONS 6. Somatic dysfunction of sacral region M99.04 [facility] MANIP,SPINAL,1-2 REGIONS Impression: Tracie Farah is [...] the above note written by Chiropractic internet retailer of our visit wit h this patient as recorded by Lane Reyes [place] [facility] AT [address] Mail Code: Ch15[place] [address] documented in this e ncounter Plan of Treatment Not on filedocumented as of this encounter Procedures + +--------+ + + + | Procedure Name | Priori | Date/Time | Associated Diagnosis | Comments | | | ty | | | | + +--------+ + + + | [facility] | Routin | 07/10/2019 | Sacroiliac [...]
--- OUTSIDE RECORDS SUMMARY | ~2020-03-23 | XMS | Encounter Summary ---
Demographics + + + | Address | [address] | | | [place] [address] | + + + | Home Phone | | + + + | Preferred Language | Unknown | + + + | Marital Status | Single | + + + | Rastafari Affiliation | 1073 | + + + | Race | Unknown | + + + | Ethnic Group | Unknown | + + + Author + + + | Author | [facility] | | | and [place] | + + + | Organization | [facility] | | | and [place] [...] [place] | | | | | [address] | | + + + + + | Bryant Farah | ERICKA | Unknown | | + + + + + Care Team Providers + +------+ + | Care Porcelain Finish Sprayer Name | Role | Phone | + +------+ + PCP | Unavailable | + +------+ + Encounter Details +--------+ + + + + | Date | Type | Department | Care Team | Description | +--------+ + + + + | 09/12/ | Hospital | [facility] | | | | 2008 | Encounter | [facility] | | | | | | CENTER [address] | | | | | | [place], [place] | | | | | | [address] | | | | | | [phone] | | | +--------+ + + + [...]
--- OUTSIDE RECORDS SUMMARY | ~2020-03-23 | XMS | Encounter Summary ---
Demographics + + + | Address | [address] | | | [place] [address] | + + + | Home Phone [...] Providers + +------+ + | Care Digital Production Operator Name | Role | Phone | [...] | | | | | Procedures | [place], [place] | | | | | | MR | [id number] | | | | | | ENTEROGRAPHY [...] | | | | | Procedures | [place], [place] | | | | | | MR | [id number] | | | | | | ENTEROGRAPHY [...] | 2017 | Encounter | Services at [facility] | [address] | | | | | [address] | [place], [place] | | | | | [place]iana [address] [place] | [address] | | | | | [facility] | [phone] | | | | | [place], [place] | | | | | | [address] | | | | | | [phone] | | | +--------+ + + + [...]
--- OUTSIDE RECORDS SUMMARY | ~2020-03-23 | XMS | Encounter Summary ---
Demographics + + + | Address | [address] | | | [place] [address] | + + + | Home Phone [...] Providers + +------+ + | Care Equipment Tech Name | Role | Phone | [...] | | | | | regional | [address] | Mailcode: | | | | | pain | Mailstop | [facility] | | | | | syndrome), | [id number] | for Health | | | | | lower limb | [place], [place] | and Healing, | | | | | Gait | [address] | Building 1, | | | | | disturbance | Phone: | 15th Floor | | | | | Muscle pain | [phone] | [place], [place] | | | | | Procedures | Fax: | [address] | | | | | CONSULT TO | [phone] | Phone: | | | | | PAIN CENTER | | [phone] | | | | | | | Fax: | | | | | | | [phone] | +--------+--------+ + + + + Encounter Details +--------+---------+ + + + | Date | Type | Department | Care Team | Description | +--------+---------+ + + + | 02/28/ | Office | Pain Center at [facility] | Shelia Feldman, PhD | Unspecified | | 2011 | Visit | [address] | | adjustment reaction | | | | Mailcode: CH15P | | (Primary Dx); Sleep | | | | [facility] | | disturbance, | | | | and Healing, | | unspecified | | | | Building | | | | | | Floor [place], [place] | | | | | | [address] | | | | | | [phone] | | | +--------+---------+ + + + [...] [facility] Name: Tracie Farah MR#: [id number] Date of : 1990 Date: February 29, [...] & Psychiatric History: Tracie Farah lives in [place] in a shared apartment space. She has struggled wi th CRPS for at least 5 years; original injury to her foot was in 2001. In summer 2010 she h ad inpt pain tx at [facility] with limited fci benefit. Recent flare; she [...] Travel is a barrier; she lives in [place] DSM-IV Diagnoses/Impressions: [place] I: 1. 309.9 Unspecified Adjustment Reaction 2. 780.50 Sleep Disturbance [place] II: Deferred. [place] III: Patient Active Problem List Diagnoses CRPS (complex regional pain syndrome), lower limb Gait disturbance Muscle pain Adjustment reaction [place] IV: CRPS pain, pain related debility;difficulty attending class, working; family stres s; stalker ex-bf [place] V: Global Assessment of Functioning = 75 [...] me should questions arise. SHELIA FELDMAN, PHD Mechanic And Welder Licensed Clinical Psychologist [facility] Department of Anesthesiology & Perioperative Medicine [facility] [address] [place] [address] documented in this enc ounter Plan of Treatment Not on filedocumented as of this encounter Visit Diagnoses + + | Diagnosis | + + | Unspecified adjustment reaction - Primary | + + | Sleep disturbance, unspecified | + + documented in this encounter
--- OUTSIDE RECORDS SUMMARY | ~2020-03-23 | XMS | Encounter Summary ---
Demographics + + + | Address | [address] | | | [place] [address] | + + + | Home Phone [...] Providers + +------+ + | Care System Dispatcher Name | Role | Phone | + +------+ + | Justo Vazquez MD | PCP | | + +------+ + Encounter Details +--------+ + + + + | Date | Type | Department | Care Team | Description | +--------+ + + + + | 01/11/ | Procedure | Diagnostic Imaging | | | | 2016 | Pass | Services at [facility] | | | | | | [address] | | | | | | Giuliana Roberson | | | | | | [facility] | | | | | | [place], [place] | | | | | | [address] | | | | | | [phone] | | | +--------+ + + + [...]
--- OUTSIDE RECORDS SUMMARY | ~2020-03-23 | XMS | Encounter Summary ---
Demographics + + + | Address | [address] | | | [place] [address] | + + + | Home Phone [...] Providers + +------+ + | Care Area Forester Name | Role | Phone | [...] | | | 2019 | Event | [facility] | MD Juan [address] | | | | | and Healing Surgery | [address] | | | | | Center Admitting | [place], [place] | | | | | Desk Located on the | [address] | | | | | 4th floor [address] | [phone] | | | | | [address] [place], | | | | | | [place] [address] | Arben Valerio MD | | | | | | [address] | | | | | | [address] | | | | | | [place], [place] | | | | | | [address] | | | | | | [phone] | | | | | | | [...]
--- OUTSIDE RECORDS SUMMARY | ~2020-03-23 | XMS | Encounter Summary ---
Demographics + + + | Address | [address] | | | [place] [address] | + + + | Home Phone [...] Team Providers + +------+ + | Care Whitewater Rafting Guide Name | Role | Phone | [...] | | 2017 | | Center at [facility] [address] | | pain | | | | [address] | | | | | | Mailcode: [place] | | | | | | for Health and | | | | | | [facility], Building 2 | | | | | | [place], [place] | | | | | | [address] | | | | | | [phone] | | | +--------+ + + + [...]
--- OUTSIDE RECORDS SUMMARY | ~2020-03-23 | XMS | Encounter Summary ---
Demographics + + + | Address | [address] | | | [place] [address] | + + + | Home Phone [...] Providers + +------+ + | Care Game Producer Name | Role | Phone | [...] | | | | | syndrome | [facility] | [facility] | | | | | type 1 of | Rd | Rd [place], | | | | | left lower | [facility], [place] | [place] | | | | | extremity | [address] | [address] | | | | | Procedures | Phone: | Phone: | | | | | REQUEST TO | [phone] | [phone] | | | | | SURGERY | Fax: | Fax: | | | | | MICA MACHINE OPERATOR | [phone] | [phone] | +--------+---------+ + + + + Reason [...] | | | | | Procedures | [place], [place] | Joel [place], | | | | | CONSULT TO | [address] | [place] | | | | | PAIN | | [address] | | | | | MANAGEMENT | | Phone: | | | | | | | [phone] | | | | | | | Fax: | | | | | | | [phone] | +--------+--------+ + + + + Encounter Details +--------+---------+ + + + | Date | Type | Department | Care Team | Description | +--------+---------+ + + + | 10/09/ | Office | [facility] | Alex Sanchez, | Complex regional | | 2018 | Visit | Pain Center at | ,PhD [address] [facility] | pain syndrome type 1 | | | | [facility] | [facility] [address] | of left lower | | | | [address] | [facility] [place] | extremity (Primary | | | | Mailcode: CH15P | [address] | Dx) | | | | [facility] | [phone] | | | | | and Healing, | | | | | | | | | | | | Floor [place], [place] | | | | | | [address] | | | | | | [phone] | | | +--------+---------+ + + + [...] external order to see a database management specialist today. Please p resent this [...] insurance. PRE-PROCEDURE INSTRUCTIONS 1. Please bring a forklift driver with you as we may give [...] or blood thinning medications (other than aspirin), [facility] doctor who is doing your procedure will communicate with the provider who is prescribing y our anticoagulant therapy. If you do not have clear instructions on what to do with your an ticoagulant by 2 weeks before your procedure, please contact [facility] to cl arify your instructions. The phone number for questions or concerns is [phone]. documented in this encounter Progress Notes Alex [...] notes. Alex Sanchez MD,PhD [facility] [place] GroveElectronically signed by Alex Sanchez MD,PhD at 09/15 [...] Person MD - 10/09/2018 10:00 AM PST [facility] Return Visit Date: 10/09/2018 Chief Complaint Patient presents with Back pain Low back pain Pain in left leg Knee pain Ankle pain Foot pain History of Present Illness: Tracie Farah is a 28 year old female, whose last appoi ntment at the [facility] was September 28, 2018, [...] She went into the emergency room in [place], [place] where they rem cady the leads. She [...] which she suspects also used dissolvable stitches. TUNNEL MINER Brief Pain Inventory: (ten= worst possible pain [...] a light load. Has been working at [employer], can' t work on [employer]. Has roommates. Allergies Allergen Reactions Morphine Anaphylaxis [...] the vein (IV) every eight hour s. 8511-7707-27 COMPOUNDED MED RX CONTROLLED (SEE ADMIN INSTRUCT [...] by physician. Concentration is 150mg/mL. Compounded by [employer] ) KETOROLAC IM Inject into the muscle [...] (IV) every twel ve hours as needed. 4929-2814-23 ONDANSETRON 4 MG DISINTEGRATING TABLET Dissolve 1 tablet in mouth every twelve hours as nee ded. PANTOPRAZOLE 40 MG TABLET,DELAYED RELEASE Take 40 mg by mouth once daily. PEG 3350-ELECTROLYTES 236 GRAM-22.74 GRAM-6.74 GRAM-5.86 GRAM SOLUTION Take as directed by [facility] Digestive Health- 2 gallon bowel [...] and summary of old medical records (source: [facility]), as summarized in the body of the [...] Key. Arben Valerio MD PAIN [facility] AT [facility] 15TH FLOOR [address] [facility] Mail Code: Ch15[place] [address] [phone] signed by Alex Sanchez MD,PhD at 10/10/2018 9:27 AM [facility] umented in this encounter Plan of Treatment Not on filedocumented as of this encounter Visit Diagnoses + + | Diagnosis | + + | Complex regional pain syndrome type 1 of left lower extremity - Primary | + + documented in this encounter
--- OUTSIDE RECORDS SUMMARY | ~2020-03-23 | XMS | Encounter Summary ---
Demographics + + + | Address | [address] | | | [place] [address] | + + + | Home Phone [...] Team Providers + +------+ + | Care Parachutist/Combatant Diver Qualified Name | Role | Phone | + [...] | Diagnoses | Beulah | Edu Pt Sprayer Hand | | | | Therapy | CRPS | Janak Martinez MD | Chh1 [address] | | | | | (complex | [address] | | | | | regional | [address] | Mailcode: | | | | | pain | Mailstop | [facility] | | | | | syndrome), | [id number] | for Health | | | | | lower limb | [place], [place] | and Healing, | | | | | Gait | [address] | Building 1 | | | | | disturbance | Phone: | [place], [place] | | | | | Muscle pain | [phone] | [address] | | | | | Procedures | Fax: | Phone: | | | | | PHYSICAL | [phone] | [phone] | | | | | THERAPY | [...] | | | [facility] | [place] [address] | syndrome), lower | | | | [address] | [phone] | limb (Primary Dx) | | | | Mailcode: CH3P | | | | | | [facility] | | | | | | and Healing, | | | | | | Building 1 | | | | | | Floor [place], [place] | | | | | | [address] | | | | | | [phone] | | | +--------+---------+ + + + [...] might be different f rom the original. [id number] BRODY FARAH Date of : 1990 Start of care: 02/14/2012 Date of onset: 02/14/2012 Referring/Attending Practitioner: Janak Riojas MD . Primary/Referral Diagnosis/ICD-9: 355.71B CRPS (complex regional pain syndrome), lower limb Insurance: Payor: [facility] Plan: BCBS OUT OF STATE Product Type: PP O Service period from: 02/14/2012 to: 08/12/2012 Number visits used/authorized: 05/25 [facility] PHYSICAL THERAPY [...] any change in their status. Guillermo Sanon [facility] Outpatient Rehabilitation Services Mailcode: Ch3p [address] [facility], [address] [place] [address] documented in this encounter Plan of Treatment Not on filedocumented as of this encounter Procedures + +--------+ + + + | Procedure Name | Priori | Date/Time | Associated Diagnosis | Comments | | | ty | | | | + +--------+ + + + | KS MANUAL THER | Routin | 06/09/2012 | CRPS (complex | | | TECH,1+REGIONS,EA 15 | e | 2:46 PM | regional pain | | | MIN | | PDT | syndrome), lower | | | | | | limb | | + +--------+ + + + | KS THERAPEUTIC | Routin | 06/09/2012 | CRPS [...]
--- OUTSIDE RECORDS SUMMARY | ~2020-03-23 | XMS | Encounter Summary ---
Demographics + + + | Address | [address] | | | [place] [address] | + + + | Home Phone [...] Providers + +------+ + | Care Sawmill Tally Clerk Name | Role | Phone | [...] Rd | | | | | | [place], [place] | | | | | | [address] | | | +--------+ + + + [...]
--- OUTSIDE RECORDS SUMMARY | ~2020-03-23 | XMS | Encounter Summary ---
Demographics + + + | Address | [address] | | | [place] [address] | + + + | Home Phone [...] Providers + +------+ + | Care Plant Maintenance Supervisor Name | Role | Phone | + +------+ + | Justo Vazquez MD | PCP | | + +------+ + Encounter Details +--------+ + + + + | Date | Type | Department | Care Team | Description | +--------+ + + + + | 03/12/ | Engineer First Assistant | [facility] Comprehensive | Alex Sanchez, | Complex regional | | 2019 | | Pain Center at | ,PhD [address] [facility] | pain syndrome type 1 | | | | [facility] | [address] | of left lower | | | | [address] | [place], [place] | extremity; S/P | | | | Mailcode: CH15P | [address] | insertion of spinal | | | | [place] for [facility] | [phone] | cord stimulator | | | | and Healing, | | | | | | Building | | | | | | Floor [place], [place] | | | | | | [address] | | | | | | [phone] | | | +--------+ + + + [...]
--- OUTSIDE RECORDS SUMMARY | ~2020-03-23 | XMS | Encounter Summary ---
Demographics + + + | Address | [address] | | | [place] [address] | + + + | Home Phone [...] Team Providers + +------+ + | Care Compilation Clerk Name | Role | Phone | [...] Bowel Clean-out | | 2015 | | [facility] [address] | MD Melissa | | | | | [address] | | | | | | Mailcode: [place] | | | | | | [facility] and | | | | | | [facility] 2 | | | | | | [place], [place] | | | | | | [address] | | | | | | [phone] | | | +--------+ + + + [...]
--- OUTSIDE RECORDS SUMMARY | ~2020-03-23 | XMS | Encounter Summary ---
Demographics + + + | Address | [address] | | | [place] [address] | + + + | Home Phone [...]
--- OUTSIDE RECORDS SUMMARY | ~2020-03-23 | XMS | Encounter Summary ---
Demographics + + + | Address | [address] | | | [place] [address] | + + + | Home Phone [...] Providers + +------+ + | Care Facilities Supervisor Name | Role | Phone | [...] Medical Records | | 2017 | | [place] [address]57 | | Review | | | | [address] | | | | | | Mailcode: [place] | | | | | | [facility] and | | | | | | [facility] 2 | | | | | | [place], [place] | | | | | | [address] | | | | | | [phone] | | | +--------+ + + + [...]
--- OUTSIDE RECORDS SUMMARY | ~2020-03-23 | XMS | Encounter Summary ---
Demographics + + + | Address | [address] | | | [place] [address] | + + + | Home Phone [...] Providers + +------+ + | Care Dairy Technologist Name | Role | Phone | [...]
--- OUTSIDE RECORDS SUMMARY | ~2020-03-23 | XMS | Encounter Summary ---
Demographics + + + | Address | [address] | | | [place] [address] | + + + | Home Phone [...] Providers + +------+ + | Care Hazardous Materials Analyst Name | Role | Phone | [...] enterography | | 2017 | Encounter | [place] [facility] [address] | | results | | | | [address] | | | | | | Mailcode: [place] | | | | | | [facility] Health and | | | | | | Healing, Building 2 | | | | | | [place], [place] | | | | | | [address] | | | | | | [phone] | | | +--------+ + + + [...]
--- OUTSIDE RECORDS SUMMARY | ~2020-03-23 | XMS | Encounter Summary ---
Demographics + + + | Address | [address] | | | [place] [address] | + + + | Home Phone [...] Team Providers + +------+ + | Care Beam Builder Name | Role | Phone | + +------+ + | Justo Vazquez MD | PCP | | + +------+ + Encounter Details +--------+ + + + + | Date | Type | Department | Care Team | Description | +--------+ + + + + | 09/25/ | Pharmacy | [facility] | | | | 2018 | Visit | & Healing Pharmacy | | | | | | [address] | | | | | | Mailcode: [place] | | | | | | [facility] Health and | | | | | | Healing, Building 1 | | | | | | [place], [place] | | | | | | [address] | | | | | | [phone] | | | +--------+ + + + [...]
--- OUTSIDE RECORDS SUMMARY | ~2020-03-23 | XMS | Encounter Summary ---
Demographics + + + | Address | [address] | | | [place] [address] | + + + | Home Phone [...] Team Providers + +------+ + | Care Digester Capper Name | Role | Phone | + [...] Rd | | | | | | [place], [place] | | | | | | [address] | | | +--------+ + + + [...]
--- OUTSIDE RECORDS SUMMARY | ~2020-03-23 | XMS | Encounter Summary ---
Demographics + + + | Address | [address] | | | [place] [address] | + + + | Home Phone [...] Providers + +------+ + | Care Material Clerk Name | Role | Phone | + +------+ + | Justo Vazquez MD | PCP | | + +------+ + Encounter Details +--------+ + + + + | Date | Type | Department | Care Team | Description | +--------+ + + + + | 12/07/ | Telephone | [facility] | Alex Sanchez, | | | 2019 | | Pain Center at | ,PhD [address] | | | | | [facility] | [facility] [address] | | | | | [address] | [place], [place] | | | | | Mailcode: CH15P | [address] | | | | | [place] for [facility] | [phone] | | | | | and Healing, | | | | | | | | | | | | Floor [place] [facility] [place] | | | | | | [address] | | | | | | [phone] | | | +--------+ + + + [...]
--- OUTSIDE RECORDS SUMMARY | ~2020-03-23 | XMS | Encounter Summary ---
Demographics + + + | Address | [address] | | | [place] [address] | + + + | Home Phone [...] Team Providers + +------+ + | Care Cake Wringer Name | Role | Phone | + [...] Pharmacy | | | | | | [address] | | | | | | Loop [place], [place] | | | | | | [address] | | | | | | [phone] | | | +--------+ + + + [...]
--- OUTSIDE RECORDS SUMMARY | ~2020-03-23 | XMS | Encounter Summary ---
Demographics + + + | Address | [address] | | | [place] [address] | + + + | Home Phone [...] Providers + +------+ + | Care Charge Master Analyst Name | Role | Phone | + +------+ + | Justo Vazquez MD | PCP | | + +------+ + Encounter Details +--------+ + + + + | Date | Type | Department | Care Team | Description | +--------+ + + + + | 09/25/ | Hospital | Radiology/Imaging | Aleta Rebollar MD 5022 | | | 2018 | Encounter | Lab at [facility] [address] | | | | | [address] Mailcode: | [place], [place] | | | | | [address] | [address] | | | | | Health and Healing, | [phone] | | | | | [facility] rust | | | | | | Floor [place], [place] | | | | | | [address] | | | | | | [phone] | | | +--------+ + + + [...]
--- OUTSIDE RECORDS SUMMARY | ~2020-03-23 | XMS | Encounter Summary ---
Demographics + + + | Address | [address] | | | [place] [address] | + + + | Home Phone [...] Providers + +------+ + | Care Clinical Applications Manager Name | Role | Phone | [...] Closed | | Orthopedics | Diagnoses | [place], | [facility] | | | | | Adjustment | Ranjeet Odom MD | Chh1 [address] | | | | | disorder, | [address] | [address] | | | | | unspecified | Ave | Mailcode: | | | | | type | [place], [place] | [facility] | | | | | Procedures | [address] | for Health | | | | | CONSULT TO | Phone: | and Healing, | | | | | BEHAVIORAL | [phone] | Building 1, | | | | | HEALTH/PSYCH | Fax: | 12th Floor | | | | | IATRY - | [phone] | [place], [place] | | | | | ADULT | | [address] | | | | | | | Phone: | | | | | | | [phone] | | | | | | | Fax: | | | | | | | [phone] | +--------+--------+ + + + + Reason [...] | | syndrome | [address] | [place], [place] | | | | | type 1 of | Rd | [address] | | | | | left lower | [place], [place] | Phone: | | | | | extremity | [address] | [phone] | | | | | Procedures | Phone: | Fax: | | | | | CONSULT TO | [phone] | [phone] | | | | | ORTHOPEDICS | Fax: | | | | | | AND | [phone] | | | | | | REHABILITATI [...] | 2018 | Visit | [facility] at [place] | MD [address] | (Primary Dx); Left | | | | for Health and | [place], [place] | ankle pain, | | | | Healing [address] | [address] | unspecified | | | | Ave Mailcode: | [phone] | chronicity; | | | | CH12A [facility] | | Adjustment disorder, | | | | Health and Healing, | | unspecified type | | | | Building | | | | | | Floor [place], [place] | | | | | | [address] | | | | | | [phone] | | | +--------+---------+ + + + [...] Hemroidectomy Trial spinal cord stimulator leads 08/02/2012 [facility], Surgeon: Janak Riojas MD Cholecystectomy [...] by physician. Concentration is 150mg/mL. Compounded by [employer] ([phone]) levonorgestrel (MIRENA) 20 mcg/24 hr Intrauterine IUD [...] Take as directed by [facility] Contractually [facility]- 2 gallon bowel prep polyethylene glycol [...] become. f/u open ended Ranjeet Amanda M.D. Manager Music Foot and Ankle Surgery Department of Orthopedics & Rehabilitation [facility] [phone] >60 mins face to face consultation was [...]
--- OUTSIDE RECORDS SUMMARY | ~2020-03-23 | XMS | Encounter Summary ---
Demographics + + + | Address | [address] | | | [place] [address] | + + + | Home Phone [...] Providers + +------+ + | Care Engineering Operator Name | Role | Phone | [...] | | | | | extremity | [address] | [address] | | | | | Procedures | Phone: | Phone: | | | | | REQUEST TO | [phone] | [phone] | | | | | SURGERY | Fax: | Fax: | | | | | [place] | [phone] | [phone] | +--------+---------+ + + + + Encounter Details +--------+---------+ + + + | Date | Type | Department | Care Team | Description | +--------+---------+ + + + | 12/22/ | Office | [facility] Comprehensive | Ilene Bright, | Complex regional | | 2019 | Visit | Pain Center at | GROUP ROOMS COORDINATOR [address] | pain syndrome type 1 | | | | [facility] | [place], [place] | of left lower | | | | [address] | [address] | extremity; S/P | | | | Mailcode: CH15P | [phone] | insertion of spinal | | | | [place] for [facility] | | cord stimulator | | | | and Healing, | | | | | | Building , | | | | | | Floor [place], [place] | | | | | | [address] | | | | | | [phone] | | | +--------+---------+ + + + [...] Instructions Collin Salomon - 12/22/2018 11:00 AM [place], Thank you for taking the [...] marjorie cobian your reference. - The [facility] inbound call center representative met with you and made adjustments to your stimulator. I spoke w ith the inbound call center representative and she is happy with your [...] call this [facility] into the [facility] in [place]. It was great to see you again, [...] [facility] was 12/07/2018 [...] order to tolerate her incision site pain. SLIMER Brief Pain Inventory: (ten= worst possible pain [...] Trial spinal cord stimulator leads 08/02/2012 [facility], Surgeon: Janak Riojas MD Cholecystectomy Appendectomy [...] History Social History Narrative Single. Goes to [employer] with a light load. Has been working at [employer], can' t work on [employer]. Has roommates. Allergies Allergen Reactions Morphine Anaphylaxis [...] with nausea Abdominal pain Abdominal scar neuroma [facility] CLINICAL PROTOCOL PATIENT (CLNPRO) - [...] and summary of old medical records (source: [facility] Everywhere), as summarized [...] taking for her surgical incision. The [facility] inbound call center representative visited the patient in order to [...] ed by Collin Salomon. Ilene Childs DNP, GROUP ROOMS COORDINATOR-C Adult Pain Service /[facility] [address] [place] [address] mmarcelo, Charline Torres MA - 12/22/2018 11:00 [...]
--- OUTSIDE RECORDS SUMMARY | ~2020-03-23 | XMS | Encounter Summary ---
Demographics + + + | Address | [address] | | | [place] [address] | + + + | Home Phone [...] Team Providers + +------+ + | Care Decatizer Name | Role | Phone | + +------+ + | Justo Vazquez MD | PCP | | + +------+ + Encounter Details +--------+ + + + + | Date | Type | Department | Care Team | Description | +--------+ + + + + | 05/05/ | Documentati | [facility] Comprehensive | Alex Sanchez, | | | 2018 | on | Pain Center at | ,PhD [address] | | | | | [facility] | [address] | | | | | [address] | [place], [place] | | | | | Mailcode: CH15P | [address] | | | | | [place] for [facility] | [phone] | | | | | and Healing, | | | | | | | | | | | | Floor [place], [place] | | | | | | [address] | | | | | | [phone] | | | +--------+ + + + [...]
--- OUTSIDE RECORDS SUMMARY | ~2020-03-23 | XMS | Encounter Summary ---
Demographics + + + | Address | [address] | | | [place] [address] | + + + | Home Phone [...] Providers + +------+ + | Care Wind Tunnel Engineer Name | Role | Phone | [...] + + | 01/11/ | Telephone | [facility] Comprehensive | Alex Sanchez, | Referral To | | 2018 | | Pain Center at | ,PhD [address] | Orthopedics (discuss | | | | [facility] | [address] | ortho appointment) | | | | [address] | [facility] [place] | | | | | Mailcode: CH15 | [address] | | | | | [facility] | [phone] | | | | | and Healing, | | | | | | | | | | | | [facility] [place] | | | | | | [address] | | | | | | [phone] | | | +--------+ + + + [...]
--- OUTSIDE RECORDS SUMMARY | ~2020-03-23 | XMS | Encounter Summary ---
Demographics + + + | Address | [address] | | | [place] [address] | + + + | Home Phone [...] Providers + +------+ + | Care Facilities Maintenance Engineer Name | Role | Phone | [...] | | | | | | Mailcode: [place] | | | | | | [facility] Health and | | | | | | [address], [address] | | | | | | [place], [place] | | | | | | [address] | | | | | | [phone] | | | +--------+ + + + [...]
--- OUTSIDE RECORDS SUMMARY | ~2020-03-23 | XMS | Encounter Summary ---
Demographics + + + | Address | [address] | | | [place] [address] | + + + | Home Phone [...] Providers + +------+ + | Care Signal Maintainer Name | Role | Phone | + +------+ + | Jusot Vazquez MD | PCP | | + +------+ + Encounter Details +--------+ + + + + | Date | Type | Department | Care Team | Description | +--------+ + + + + | 06/04/ | Documentati | [facility] Comprehensive | Alex Sanchez, | | | 2019 | on | Pain Center at | ,PhD [address] | | | | | [facility] | [facility] [address] | | | | | [address] | [place], [place] | | | | | Mailcode: CH15P | [address] | | | | | [place] for [facility] | [phone] | | | | | and Healing, | | | | | | | | | | | | Floor [place], [place] | | | | | | [address] | | | | | | [phone] | | | +--------+ + + + [...]
--- OUTSIDE RECORDS SUMMARY | ~2020-03-23 | XMS | Encounter Summary ---
Demographics + + + | Address | [address] | | | [place] [address] | + + + | Home Phone [...] Team Providers + +------+ + | Care Early Childhood Lead Teacher Name | Role | Phone | [...] Rd | | | | | | [place], [place] | | | | | | [address] | | | +--------+ + + + [...]
--- OUTSIDE RECORDS SUMMARY | ~2020-03-23 | XMS | Encounter Summary ---
Demographics + + + | Address | [address] | | | [place] [address] | + + + | Home Phone [...] Team Providers + +------+ + | Care Hoisting Engineer Pile Driving Name | Role | Phone | + [...] (Concern for DRG | | | | [facility] | [address] [place], | trial wound | | | | [address] | [place] [address] | infection) | | | | Mailcode: CH15P | [phone] | | | | | [facility] | | | | | | and Healing, | | | | | | | | | | | | Floor [place], [place] | | | | | | [address] | | | | | | [phone] | | | +--------+ + + + [...]
--- OUTSIDE RECORDS SUMMARY | ~2020-03-23 | XMS | Encounter Summary ---
Demographics + + + | Address | [address] | | | [place] [address] | + + + | Home Phone [...] Team Providers + +------+ + | Care Archaeologist Name | Role | Phone | + [...] | | Pain Center at | ,PhD [address] | denied) | | | | [facility] | [facility] | | | | | [address] | [place], [place] | | | | | Mailcode: CH15P | [address] | | | | | [facility] | [phone] | | | | | and [address], | | | | | | Building | | | | | | Floor [place], [place] | | | | | | [address] | | | | | | [phone] | | | +--------+ + + + [...]
--- OUTSIDE RECORDS SUMMARY | ~2020-03-23 | XMS | Encounter Summary ---
Demographics + + + | Address | [address] | | | [place] [address] | + + + | Home Phone [...] Providers + +------+ + | Care Wrapper Dipper Name | Role | Phone | [...] at [facility] [address] | | | | | | [address] | | | | | | Mailcode: [place] | | | | | | for Health and | | | | | | Healing, [address] | | | | | | [facility] [place] | | | | | | [address] | | | | | | [phone] | | | +--------+--------+ + + + [...]
--- OUTSIDE RECORDS SUMMARY | ~2020-03-23 | XMS | Encounter Summary ---
Demographics + + + | Address | [address] | | | [place] [address] | + + + | Home Phone [...] Providers + +------+ + | Care Certified Welder Name | Role | Phone | [...] | | | | | extremity | [address] | [address] | | | | | Muscle pain | Phone: | Phone: | | | | | Procedures | [phone] | [phone] | | | | | REQUEST TO | Fax: | Fax: | | | | | SURGERY | [phone] | [phone] | | | | | REGIONAL BUSINESS DEVELOPMENT MANAGER | | | | | | | MD INJ,ANES | | | | | | | AGENT,SCIATI | | | | | | | C | | | | | | | NERVE,SINGLE | | | | | | | MD INJECT | | | | | | | NERV | | | | | | | BLCK,OTHR | | | | | | | PERIPH NERV | | | | | | | MD SONO | | | | | | | GUIDE FOR | | | | | | | NEEDLE | | | | | | | PLACEMENT | | | | | | | MD MOD | | | | | | | SEDATION | | | | | | | >=5YRS SAME | | | | | | | MD/QUAL | | | | | | | PROV; INIT | | | | | | | 15 MIN MD | | | | | | | [...] 12/27/ | Procedure | Pain Center at [facility] | Alex Sanchez, | Pain in left leg; | | 2017 | | [address] | ,PhD [address] [facility] | Procedure | | | | Mailcode: CH15P | [facility] | | | | | [place] for [facility] | [place], [place] | | | | | and Healing, | [address] | | | | | | [phone] | | | | | [place], [place] | | | | | | [address] | | | | | | [phone] | | | +--------+ + + + [...] mi nayelit be different from the original. [facility] Pain Center Patient Instructions - Post Interventional Procedure Date: 12/27/2017 Name: Tracie Farah Date of : 1990 Procedure Performed: trigger point injection and popliteal/sciatic block. Procedure Provider: Alex Sanchez MD,PhD If you have any problems you believe are associated with your procedure tonight, Please call the Hospital Research Laboratory Manager, and ask for the Pain Management [...] paper. Please fax the pain diary to [phone] or attach a scanned image of it to a [employer] message to your doct or.. The area [...] I reviewed the documentation of the other [facility] providers and concur with Dr. Linares's findings. I edited his note. Alex Sanchez MD,PhD Refinery Process Engineer Anesthesiology and Pain Management [facility] [place] David Pennington MD - 12/27/2017 3:00 PM PSTPROVICHIOMA OPERATIVE NOTE Date: December 27, 2017 Location: [facility] Procedure Room Tracie Farah [id number] :1990, presents to clinic for: PROCEDURE: Popliteal/sciatic [...] scar neuroma ATTENDING PHYSICIAN: Alex Sanchez MD,PhD SHOTGUN SHELL LOADING MACHINE OPERATOR: Fellow David Linares MD ANESTHESIA: sedation [...] escorted to the [facility] Procedure R oom, where she [...] procedure. Images were saved, and sent to [employer]. Ms. Farah was transported to the [facility] Comprehensive Pain Center post-procedure recovery area. [...] by physician. Concentration is 150mg/mL. Compounded by [facility] ) LEVONORGESTREL 20 MCG/24 HR (5 [...] GRAM-5.86 GRAM SOLUTION Take as directed by [facility]- 2 gallon bowel prep POLYETHYLENE GLYCOL [...] PRE-SEDATION: Date: December 27, 2017 Tracie Farah [id number] 1990 ALLERGIES: Morphine Previous reaction to Sedation/Analgesia: [...] PRE-SEDATION: Date: December 27, 2017 Tracie Farah [id number] 1990 See RN /ZOFIA Pre-Sedation Note. IV ACCESS:Right subc PAC. BASELINE VS: See Sedation Flow Sheet. Tracie Ocampojulita Farah [id number] 1990, presents to clinic for: Procedure: left [...] started. 1530 Midazolam 2mg IV given 1530 Wsyzyiqg433 mcg IV given 1534 Midazolam 1mg IV given 1546 Midazolam 1mg IV given 1546 Ppyzfmtp247 mcg IV given 1548 Fentanyl 100 mcg IV given bupivacaine 0.5%, 9mL given, 21mL wasted Kenalog 40mg/mL 1mL, 0 mL wasted 1555 abdominal scar trigger point completed. 1558 Fentanyl 50 mcg IV given 1601 Fentanyl 50 mcg IV given [place] placed for Popliteal Nerve Block.. Placement verified [...] + +--------+ + + + | MD INJECTION(S), | Routin | 12/27/2017 | Complex regional | | | ANESTHETIC AGENT(S) | e | 4:32 PM | pain syndrome type 1 | | | AND/OR STEROID; | | PST | of left lower | | | OTHER PERIPHERAL | | | extremity | | | NERVE OR BRANCH | | | | | + +--------+ + + + | MD ROPIVACAINE HCL | Routin | 12/27/2017 | Complex regional | | | INJ 0.5% | e | 4:32 PM | pain syndrome type 1 | | | | | PST | of left lower | | | | | | extremity | | + +--------+ + + + | MD MOD SEDATION | Routin | 12/27/2017 | Complex regional | | | >=5YRS SAME MD/QUAL | e | 4:32 PM | pain syndrome type 1 | | | PROV; INIT 15 MIN | | PST | of left lower | | | | | | extremity | | + +--------+ + + + documented in this encounter Results SPORTS ANCHOR MISC PROCEDURE (12/27/2017 3:28 PM PST) + [...]
--- OUTSIDE RECORDS SUMMARY | ~2020-03-23 | XMS | Encounter Summary ---
Demographics + + + | Address | [address] | | | [place] [address] | + + + | Home Phone [...] Providers + +------+ + | Care Electrical Tech/Project Manager Name | Role | Phone | [...] | Pain | | 2016 | | [place] at [facility] [address] | | | | | | [address] | | | | | | Mailcode: Center | | | | | | for Health and | | | | | | Healing, [address] | | | | | | [place], [place] | | | | | | [address] | | | | | | [phone] | | | +--------+ + + + [...]
--- OUTSIDE RECORDS SUMMARY | ~2020-03-23 | XMS | Encounter Summary ---
Demographics + + + | Address | [address] | | | [place] [address] | + + + | Home Phone [...] Providers + +------+ + | Care Rehabilitation Attendant Name | Role | Phone | + +------+ + | Justo Vazquez MD | PCP | | + +------+ + Encounter Details +--------+ + + + + | Date | Type | Department | Care Team | Description | +--------+ + + + + | 09/25/ | Pharmacy | [facility] | | | | 2018 | Visit | & Healing Pharmacy | | | | | | [address] | | | | | | Mailcode: [place] | | | | | | [facility] Health and | | | | | | Healing, [address] | | | | | | [place], [place] | | | | | | [address] | | | | | | [phone] | | | +--------+ + + + [...]
--- OUTSIDE RECORDS SUMMARY | ~2020-03-23 | XMS | Encounter Summary ---
Demographics + + + | Address | [address] | | | [place] [address] | + + + | Home Phone [...] Team Providers + +------+ + | Care Juvenile Probation Officer Name | Role | Phone | [...] | | Pain Center at | ,PhD [address] | denied) | | | | [facility] | [facility] | | | | | [address] | [place], [place] | | | | | Mailcode: CH15P | [address] | | | | | [facility] | [phone] | | | | | and [address], | | | | | | Building | | | | | | Floor [place], [place] | | | | | | [address] | | | | | | [phone] | | | +--------+ + + + [...]
--- OUTSIDE RECORDS SUMMARY | ~2020-03-23 | XMS | Encounter Summary ---
Demographics + + + | Address | [address] | | | [place] [address] | + + + | Home Phone [...] Team Providers + +------+ + | Care Motion Study Technician Name | Role | Phone | [...] | pain, | [address] | [address] | | | | | unspecified | [address] | | | | | abdominal | Rd | [place], [place] | | | | | location | [facility] [place] | [address] | | | | | Pain of | [address] | Phone: | | | | | upper | | [phone] | | | | | abdomen | | Fax: | | | | | Complex | | [phone] | | | | | regional | [...] | | | | | | | FILM CREW MEMBER | | | +--------+---------+ + + + + Reason for Visit + + + | Reason | Comments | + + + | Procedure | | + + + Encounter Details +--------+ + + + + | Date | Type | Department | Care Team | Description | +--------+ + + + + | 08/30/ | Telephone | [facility] | [place]ene Bright, | Procedure | | 2017 | | Pain Center at | AIR SAMPLING AND MONITORING [address] | | | | | [facility] | [place], [place] | | | | | [address] | [address] | | | | | Mailcode: CH15 | [phone] | | | | | [facility] | | | | | | and Healing, | | | | | | Building | | | | | | Floor [place], [place] | | | | | | [address] | | | | | | [phone] | | | +--------+ + + + [...]
--- OUTSIDE RECORDS SUMMARY | ~2020-03-23 | XMS | Encounter Summary ---
Demographics + + + | Address | [address] | | | [place] [address] | + + + | Home Phone [...] Providers + +------+ + | Care Supervisor Hard Candy Name | Role | Phone | + +------+ + | Justo Vazquez MD | PCP | | + +------+ + Encounter Details +--------+ + + + + | Date | Type | Department | Care Team | Description | +--------+ + + + + | 05/18/ | Telephone | [facility] | Alex Sanchez, | | | 2019 | | Pain Center at | ,PhD [address] | | | | | [facility] | [facility] [address] | | | | | [address] | [facility] [place] | | | | | Mailcode: CH15P | [address] | | | | | [place] for [facility] | [phone] | | | | | and Healing, | | | | | | | | | | | | Floor [place], [place] | | | | | | [address] | | | | | | [phone] | | | +--------+ + + + [...]
--- OUTSIDE RECORDS SUMMARY | ~2020-03-23 | XMS | Encounter Summary ---
Demographics + + + | Address | [address] | | | [place] [address] | + + + | Home Phone [...] | 2018 | on | [facility] | [address] | | | | | for Health and | [place], [place] | | | | | Healing [address] | [address] | | | | | Ave Mailcode: | [phone] | | | | | [facility] | | | | | | Health and Healing, | | | | | | | | | | | | Floor [place], [place] | | | | | | [address] | | | | | | [phone] | | | +--------+ + + + [...]
--- OUTSIDE RECORDS SUMMARY | ~2020-03-23 | XMS | Encounter Summary ---
Demographics + + + | Address | [address] | | | [place] [address] | + + + | Home Phone [...] Team Providers + +------+ + | Care Airline Dispatcher Name | Role | Phone | [...] + + | 09/30/ | Telephone | [facility] Ilene | Ilene Bright, | Phone communication | | 2017 | | Pain Center at | SR. PAYROLL MANAGER [address] | | | | | [facility] | [place], [place] | | | | | [address] | [address] | | | | | Mailcode: CH15 | [phone] | | | | | [facility] | | | | | | and Healing, | | | | | | Building | | | | | | Floor [place], [place] | | | | | | [address] | | | | | | [phone] | | | +--------+ + + + [...]
--- OUTSIDE RECORDS SUMMARY | ~2020-03-23 | XMS | Encounter Summary ---
Demographics + + + | Address | [address] | | | [place] [address] | + + + | Home Phone [...] Team Providers + +------+ + | Care Position Classification Specialist Name | Role | Phone | [...] | | | | regional | ,PhD [address] | | | | | | pain | [address] | | | | | | syndrome | [address] | | | | | | type 1 of | Rd | | | | | | left lower | [place], [place] | | | | | | extremity | [address] | | | | | | Procedures | Phone: | | | | | | CONSULT TO | [phone] | | | | | | ORTHOPEDICS | Fax: | | | | | | AND | [phone] | | | | | | REHABILITATI | | | | | | | ON | | | +--------+--------+ + + + + Encounter Details +--------+ + + + + | Date | Type | Department | Care Team | Description | +--------+ + + + + | 06/08/ | Wave Soldering Machine Operator | [facility] Comprehensive | Alex Sanchez, | Complex regional | | 2019 | | Pain Center at | ,PhD [address] [facility] | pain syndrome type 1 | | | | [facility] | [facility] [address] | of left lower | | | | [address] | [place], [place] | extremity (Primary | | | | Mailcode: CH15P | [address] | Dx) | | | | [place] for Health | [phone] | | | | | and Healing, | | | | | | | | | | | | Floor [place], [place] | | | | | | [address] | | | | | | [phone] | | | +--------+ + + + [...]
--- OUTSIDE RECORDS SUMMARY | ~2020-03-23 | XMS | Encounter Summary ---
Demographics + + + | Address | [address] | | | [place] [address] | + + + | Home Phone [...] Providers + +------+ + | Care Senior Net Software Developer Name | Role | Phone [...] | 08/08/ | Emergency | [facility] Emergency | Mable Villarreal MD | | | 2015 | | Department [address] | [address] [facility] | | | | | [address] | [address] | | | | | [facility] | [place], [place] | | | | | [place], [place] | [address] | | | | | [address] | [phone] | | | | | [phone] | | | | | | | [...] about "Gastroparesis: Care Instructions", log into your [employer] Website account at [email or web address]. You can enter M106 in the [place]" search box. Not on [employer] Website? Review the [employer] Website section of your After Visit Summary for directions on ho w to sign up. [phone] [employer]. Care instructions adapted under license by [facility] [place]. This care instruction is for use with your licensed healthcar e professional. If you have questions about a medical condition or this instruction, always ask your healthcare professional. [employer] disclaims any warranty or liabili ty for your use of this information. Content Version: 11.0.347828; Current as of: October 03, 2015 documented [...] | | | LABORATORY | | | T[facility] | | | SERVICES, | | | [...] + + + + + | [facility] | [address] | [place] [address] | | | SERVICES, CORE | GUILLERMO [...] DEPT OF | [address] | [place], [place] | | | CARDIOLOGY | [address] | [address] | | + + + + + [...] + + + + | [facility]ATORY | [address] | [place] [address] | | | SERVICES, CORE | [address] [...] [facility] | [address] | [place] [address] | | | SERVICES, LILLIAN | GUILLERMO [...] KEVIN SHAH | [address] | [place] [address] | | | SERVICES, CORE | P[address] [...] + + + + + | [facility] | [address] | [place] [address] | | | [facility] | [address] | | | + [...] organisms may result in clinically misleading | [facility] | | information due to the low numbers and /or mixture of organisms | | | present. Recollection is suggested if clinically indicated. | | + + + + + + + + | Performing | Address | City/State/Zipcode | Phone Number | | Organization | | | | + + + + + | [facility] | [address] | [place] [address] | | | [place] | | | | + + + [...] [facility] | [address] | [place] [address] | | | SERVICES, CORE | [address] [...] + + + + | [facility] | [address] | [place] [address] | | | SERVICES, CORE | PARK [...] 152 - 353 U/L | [facility] | | | (LAB) | | [...] + + + + + | [facility] | [address] [facility] | [place] [address] | | | SERVICES, CORE | [address]ER[address] [...] | | | LABORATORY | | | TONGAN | | | SERVICES, | | | [...] + + + + + | [facility] | [address] | [place] [address] | | | SERVICES, CORE | [address] | | | + + + + + ED INFORMATION EXCHANGE (08/08/2016 12:21 PM PDT) + + + + + + | Component | Value | Ref Range | Performed | Pathologist | | | | | At | Signature | + + + + + + | [facility] | [id number] | | COLLECTIVE | | | | [id number] | | MEDICAL | | | | [...] ------- ---- | | | 08/08/2016 12:21 [facility] and | | | [facility] [place] Emergency [address]. abd pain | | | 08/04/2016 03:50 [facility] | | | [place] Emergency ABD PAIN,VOMITING 06/26/2016 22:44 | | | [facility] 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 has been to the er | | | | | | several times | | | | | | -Abdominal Pain | | | | | | -Gastroparesis 06/19/2016 | | | 04:51 [facility] [place] 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 | | | [place] Emergency [...] Location ------ --------- 1 | | | [facility] 1 | | | [facility] 8 [facility] 10 | | | Total Note: Visits [...] COLLECTIVE MEDICAL | [address] | [place], [place] | [phone] | | TECHNOLOGIES | [address] | [address] | | + + + + + [...]
--- OUTSIDE RECORDS SUMMARY | ~2020-03-23 | XMS | Encounter Summary ---
Demographics + + + | Address | [address] | | | [place] [address] [...] Providers + +------+ + | Care Scrap Iron Loader Name | Role | Phone | [...] | | | [address] Mailcode: | [place], [place] | | | | | [address] | [address] | | | | | Health and Healing, | [phone] | | | | | | | | | | | Floor [facility] [place] | | | | | | [address] | | | | | | [phone] | | | +--------+ + + + [...] Note | + + | Service Account, [employer] In Interface - 03/08/2018 9:42 AM [...]
--- OUTSIDE RECORDS SUMMARY | ~2020-03-23 | XMS | Encounter Summary ---
Demographics + + + | Address | [address] | | | [place] [address] | + + + | Home Phone [...] Providers + +------+ + | Care Labor Crew Supervisor Name | Role | Phone [...] | | | regional | [place] | [address] | | | | | pain | FAMILY | Mailstop | | | | | syndrome), | MEDICINE P | [id number] | | | | | lower limb | [address] | [place], [place] | | | | | Gait | [place], | [address] | | | | | disturbance | [place] [address] | Phone: | | | | | Muscle pain | Phone: | [phone] | | | | | Procedures | [phone] | Fax: | | | | | REQUEST TO | Fax: | [phone] | | | | | SURGERY | [phone] | | | | | | DENTAL OFFICE MANAGER | | | +--------+--------+ + + + + Encounter Details +--------+ + + + + | Date | Type | Department | Care Team | Description | +--------+ + + + + | 03/01/ | Procedure | Pain Center at [facility] | Dale Cantu, | Foot pain (left); | | 2011 | | [address] | [address] | Procedure | | | | Mailcode: CH15P | St Mailstop [id number] | | | | | [facility] | [place], [place] | | | | | and [place], | [address] | | | | | | [phone] | | | | | Floor [place], [place] | | | | | | [address] | | | | | | [phone] | | | +--------+ + + + [...] migh t be different from the original. [facility] Patient Instructions - Post Interventional Procedure Date: 03/01/2012 Name: Tracie Farah Date of : 1990 Procedure Performed: LUMBAR SYMPATHETIC BLOCK. Procedure Provider: Dale Cantu If you have any problems you believe are associated with your procedure tonight, Please call the Hospital Corporate Learning Consultant, and ask for the Pain Management Consu ltant. If you have problems or questions between 9:00 am and 4:00 pm, Please call the [facility] Nurse Triage Line, . If [...] to the larry ent. LAKEISHA HERRING MD [facility] documented in this encounter Progress Notes Dale Cantu MD - 03/01/2012 2:21 PM PDTI was present for the entire procedure (lumbar sympathetic block) and all bocanegra elements of this visit. I reviewed the documentation of the other BRAKE LINING DRILLER providers and concur with Dr. Herring's findings. [...] benefit from multidisciplinary treatment. DALE CANTU MD Medical Research Scientist, [facility] Radiation Therapist, Pain Medicine Professor, Anesthesiology & Perioperative Medicine NAEiDiana scott RN - 03/01/2012 1:35 PM PDT PRE-SEDATION: Date: March 01, 2012 Tracie Farah [id number] 1990 ALLERGIES: Morphine Previous reaction to Sedation/Analgesia: MEDICATIONS: Current Outpatient Prescriptions Medication DULoxetine (CYMBALTA) 30 mg Oral Capsule, Delayed Release(E.C.) HYDROcodone-acetaminophen (NORCO) 10-325 mg Oral Tablet levonorgestrel (MIRENA) 20 mcg/24 hr Intrauterine IUD LORazepam 1 mg Oral Tablet promethazine 25 mg Oral Tablet Meets NPO Guidelines. IV ACCESS: IV in Place IV Start Time 32740, 22g, DRH BASELINE VS: See Sedation Flow Sheet. Tracie Farah [id number] 1990, presents to clinic for: Procedure: Lumbar [...] ml. 1344: Procedure complete. Pt returned to levering 1 per eva in stable condiotion. IV [...] [facility] Procedure Room Tracie Donaldson [facility] [id number] :1990, presents to clinic for: PROCEDURE: Lumbar sympathetic block LEVEL/LATERALITY: left L3 PRE-OPERATIVE DIAGNOSIS: 355.71B CRPS (complex regional pain syndrome), lower limb 719.46 Pain in joint, lower leg POST-OPERATIVE DIAGNOSIS: 355.71B CRPS (complex regional pain syndrome), lower limb 719.46 Pain in joint, lower leg ATTENDING PHYSICIAN: Dale Cantu COMPUTER NUMERICAL CONTROL OPERATOR: Fellow Lakeisha Herring MD ANESTHESIA: sedation delivered [...] compromise. Ms. Farah was transported to the [facility] post-procedure recovery [...] block. Images were saved, and sent to [employer]. Ms. Farah will have her next [...]
--- OUTSIDE RECORDS SUMMARY | ~2020-03-23 | XMS | Encounter Summary ---
Demographics + + + | Address | [address] | | | [place] [address] | + + + | Home Phone [...] | Orthopedics | Diagnoses | Sdrulla, | [place], | | | | | Complex | Alex Alba, | Ranjeet Odom MD | | | | | regional | ,PhD [address] | [address] | | | | | pain | [address] | [address] | | | | | syndrome | [address] [place] | [place], [place] | | | | | type 1 of | Rd | [address] | | | | | left lower | [place], [place] | Phone: | | | | | extremity | [address] | [phone] | | | | | Procedures | Phone: | Fax: | | | | | CONSULT TO | [phone] | [phone] | | | | | ORTHOPEDICS | Fax: | | | | | | AND | [phone] | | | | | | REHABILITATI [...] | ankle results) | | | | [facility] | [facility] | | | | | [address] | [place], [place] | | | | | Mailcode: CH15P | [address] | | | | | [facility] | [phone] | | | | | and Healing, | | | | | | Building | | | | | | [place], [place] | | | | | | [address] | | | | | | [phone] | | | +--------+ + + + [...]
--- OUTSIDE RECORDS SUMMARY | ~2020-03-23 | XMS | Encounter Summary ---
Demographics + + + | Address | [address] | | | [place] [address] | + + + | Home Phone [...] Providers + +------+ + | Care Clinical Medical Transcriptionist Name | Role | Phone | + [...] | Diagnoses | Beulah | Edu Pt Inventory Transcriber | | | | Therapy | CRPS | Janak Martinez MD | [address] | | | | | (complex | [address] | | | | | regional | [address] | Mailcode: | | | | | pain | Mailstop | [facility] | | | | | syndrome), | [id number] | for Health | | | | | lower limb | [place], [place] | and Healing, | | | | | Gait | [address] | Building [address] | | | | | disturbance | Phone: | [place], [place] | | | | | Muscle pain | [phone] | [address] | | | | | Procedures | Fax: | Phone: | | | | | PHYSICAL | [phone] | [phone] | | | | | THERAPY | [...] regional pain | | | | [facility] | [place] [address] | syndrome), lower | | | | [address] | [phone] | limb (Primary Dx) | | | | Mailcode: CH3P | | | | | | [facility] | | | | | | and Healing, | | | | | | Building [address] | | | | | | Floor [place], [place] | | | | | | [address] | | | | | | [phone] | | | +--------+---------+ + + + [...] might be different f rom the original. [id number] BRODY FARAH Date of : 1990 Start of care: 02/14/2012 Date of onset: 02/14/2012 Referring/Attending Practitioner: Janak Riojas MD . Primary/Referral Diagnosis/ICD-9: 355.71B CRPS (complex regional pain syndrome), lower limb Insurance: Payor: [facility] Plan: BCBS OUT OF STATE Product Type: PP O Service period from: 02/14/2012 to: 08/12/2012 Number visits used/authorized: 12/26 [facility] PHYSICAL THERAPY [...] less stressful. Now she is working at [employer] 2-3 hours per week, and spends a [...] pain meds. Social History: lives in [place], 22 years old, not working currently, [...] concerns about therapy: she lives in [place]. She is r equesting family members [...] any change in their status. Guillermo San[facility] Outpatient Rehabilitation Services Mailcode: Ch3p 1426 [facility], 1st Floor [facility] [...]
--- OUTSIDE RECORDS SUMMARY | ~2020-03-23 | XMS | Encounter Summary ---
Demographics + + + | Address | [address] | | | [place] [address] | + + + | Home Phone [...] + +------+ + | Care Senior Environmental Practice Leader Name | Role | Phone | [...] + | 09/14/ | Telephone | [facility] Comprehensive | Alex Sanchez, | Education procedure | | 2018 | | Pain Center at | ,PhD [address] | (preprocedure | | | | [facility] | [facility] [address] [facility] [address] | education SCS) | | | | [address] | [place], [place] | | | | | Mailcode: CH15P | [address] | | | | | [facility] | [phone] | | | | | and [address], | | | | | | | | | | | | Floor [place], [place] | | | | | | [address] | | | | | | [phone] | | | +--------+ + + + [...]
--- OUTSIDE RECORDS SUMMARY | ~2020-03-23 | XMS | Encounter Summary ---
Demographics + + + | Address | [address] | | | [place] [address] | + + + | Home Phone [...] Team Providers + +------+ + | Care Curriculum And Instruction Director Name | Role | Phone | [...] [facility] | [facility] [address] | | | | | [address] | [facility] [place] | | | | | Mailcode: CH15P | [address] | | | | | [place] for [facility] | [phone] | | | | | and Healing, | | | | | | | | | | | | Floor [place], [place] | | | | | | [address] | | | | | | [phone] | | | +--------+ + + + [...]
--- OUTSIDE RECORDS SUMMARY | ~2020-03-23 | XMS | Encounter Summary ---
Demographics + + + | Address | [address] | | | [place] [address] | + + + | Home Phone [...] Team Providers + +------+ + | Care Biodiesel Production Associate Name | Role | Phone [...] | | | | | Procedures | [place], [place] | Rd [place], | | | | | CONSULT TO | [address] | [place] | | | | | PAIN | | [address] | | | | | MANAGEMENT | | Phone: | | | | | | | [phone] | | | | | | | Fax: | | | | | | | [phone] | +--------+--------+ + + + + Encounter Details +--------+---------+ + + + | Date | Type | Department | Care Team | Description | +--------+---------+ + + + | 05/08/ | Office | [facility] Comprehensive | Alex Sanchez, | Complex regional | | 2018 | Visit | Pain Center at | ,PhD [address] | pain syndrome type 1 | | | | [place] | [address] [facility] [address] | of left lower | | | | [address] | [place], [place] | extremity (Primary | | | | Mailcode: CH15P | [address] | Dx); Pain of upper | | | | [facility] | [phone] | abdomen; Intractable | | | | and Healing, | | cyclical vomiting | | | | Building 15 | | with nausea; | | | | Floor [place], [place] | | Disturbance in sleep | | | | [address] | | behavior; 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 CLINICAL LIAISON Brief Pain Inventory: (ten= worst possible pain [...] History Social History Narrative Single. Goes to [employer] with a light load. Has been working at [employer], can' t work on crCyphomaches. Has roommates. Allergies Allergen Reactions Morphine Anaphylaxis [...] by physician. Concentration is 150mg/mL. Compounded by [facility] ( [phone]) KETOROLAC IM Inject into the muscle (IM). [...] and summary of old medical records (source: [employer]), as summarized in the body of [...] Sonia Key. Alex Sanchez MD PhD Air Conditioning Installer Anesthesiology and Pain Management [facility] documented in this encounter Plan of [...]
--- OUTSIDE RECORDS SUMMARY | ~2020-03-23 | XMS | Encounter Summary ---
Demographics + + + | Address | [address] | | | [place] [address] | + + + | Home Phone [...] Team Providers + +------+ + | Care Screw Driver Operator Name | Role | [...] | Diagnoses | Beulah | Edu Pt County Assessor | | | | Therapy | CRPS | Janak Martinez MD | [address] | | | | | (complex | [address] | | | | | regional | [place] [address] | Mailcode: | | | | | pain | Mailstop | [facility] | | | | | syndrome), | [id number] | for Health | | | | | lower limb | [place], [place] | and Healing, | | | | | Gait | [address] | Building 1 | | | | | disturbance | Phone: | [place], [place] | | | | | Muscle pain | [phone] | [address] | | | | | Procedures | Fax: | Phone: | | | | | PHYSICAL | [phone] | [phone] | | | | | THERAPY | [...] | [facility] | [place] [address] | syndrome), lower | | | | [address] | [phone] | limb (Primary Dx) | | | | Mailcode: CH3P | | | | | | [facility] | | | | | | and Healing, | | | | | | Building [address] | | | | | | Floor [place], [place] | | | | | | [address] | | | | | | [phone] | | | +--------+---------+ + + + [...] might be different f rom the original. [id number] BROYD FARAH Date of : 1990 Start of care: 02/14/2012 Date of onset: 02/14/2012 Referring/Attending Practitioner: Janak Riojas MD . Primary/Referral Diagnosis/ICD-9: 355.71B CRPS (complex regional pain syndrome), lower limb Insurance: Payor: [facility] Plan: BCBS OUT OF STATE Product [...] HOSPITAL Outpatient Rehabilitation Services Mailcode: Ch3p 3303 [facility], [address] [place] [address] documented in this encounter Plan of Treatment Not on filedocumented as of this encounter Procedures + +--------+ + + + | Procedure Name | Priori | Date/Time | Associated Diagnosis | Comments | | | ty | | | | + +--------+ + + + | IN MANUAL THER | Routin | 06/05/2012 | CRPS (complex | | | TECH,1+REGIONS,EA 15 | e | 5:15 PM | regional pain | | | MIN | | PDT | syndrome), lower | | | | | | limb | | + +--------+ + + + | IN THERAPEUTIC | Routin | 06/05/2012 | CRPS [...]
--- OUTSIDE RECORDS SUMMARY | ~2020-03-23 | XMS | Encounter Summary ---
Demographics + + + | Address | [address] | | | [place] [address] | + + + | Home Phone [...] Team Providers + +------+ + | Care Uplands Division Director Name | Role | Phone | + +------+ + | Justo Vazquez MD | PCP | | + +------+ + Encounter Details +--------+ + + + + | Date | Type | Department | Care Team | Description | +--------+ + + + + | 07/26/ | MyChart | [facility] Comprehensive | Ilene Bright, | Labs | | 2017 | Encounter | Pain Center at | BOAT DECKHAND [address] | | | | | [facility] | [place], [place] | | | | | [address] | [address] | | | | | Mailcode: CH15 | [phone] | | | | | [facility] | | | | | | and Healing, | | | | | | | | | | | | Floor [place], [place] | | | | | | [address] | | | | | | [phone] | | | +--------+ + + + [...]
--- OUTSIDE RECORDS SUMMARY | ~2020-03-23 | XMS | Encounter Summary ---
Demographics + + + | Address | [address] | | | [place] [address] | + + + | Home Phone [...] Team Providers + +------+ + | Care Mainspring Winder And Oiler Name | Role | Phone [...] | | 2017 | anned | Services [address] | | | | | | [address] | | | | | | Mailcode: OP17A | | | | | | [facility] | | | | | | [place], [place] | | | | | | [address] | | | | | | [phone] | | | +--------+ + + + [...]
--- OUTSIDE RECORDS SUMMARY | ~2020-03-23 | XMS | Encounter Summary ---
Demographics + + + | Address | [address] | | | [place] [address] | + + + | Home Phone [...] Team Providers + +------+ + | Care Acute Dialysis Registered Nurse Name | Role | [...] | | | 2017 | on | [facility] [address] | Maru RN [address] | | | | | [address] | [address] | | | | | [facility] | [place], [place] | | | | | [place], [place] | [address] | | | | | [address] | | | | | | [phone] | | | +--------+ + + + [...]
--- OUTSIDE RECORDS SUMMARY | ~2020-03-23 | XMS | Encounter Summary ---
Demographics + + + | Address | [address] | | | [place] [address] | + + + | Home Phone [...] Providers + +------+ + | Care Job Coach/Job Developer Name | Role | Phone | + +------+ + | Justo Vazquez MD | PCP | | + +------+ + Encounter Details +--------+ + + + + | Date | Type | Department | Care Team | Description | +--------+ + + + + | 03/12/ | Telephone | [facility] | Alex Sanchez, | | | 2019 | | Pain Center at | ,PhD [address] | | | | | [facility] | [facility] [address] | | | | | [address] | [facility] [place] | | | | | Mailcode: CH15P | [address] | | | | | [place] for [facility] | [phone] | | | | | and Healing, | | | | | | | | | | | | Floor [place], [place] | | | | | | [address] | | | | | | [phone] | | | +--------+ + + + [...]
--- OUTSIDE RECORDS SUMMARY | ~2020-03-23 | XMS | Encounter Summary ---
Demographics + + + | Address | [address] | | | [place] [address] | + + + | Home Phone [...] Team Providers + +------+ + | Care Pebble Mill Operator Name | Role | Phone | + +------+ + | Justo Vazquez MD | PCP | | + +------+ + Encounter Details +--------+ + + + + | Date | Type | Department | Care Team | Description | +--------+ + + + + | 07/28/ | Documentati | [facility] Comprehensive | Ilene Bright, | | | 2017 | on | Pain Center at | BARBERING INSTRUCTOR [address] | | | | | [facility] | [place], [place] | | | | | [address] | [address] | | | | | Mailcode: CH15 | [phone] | | | | | [place] for [facility] | | | | | | and Healing, | | | | | | | | | | | | Floor [place], [place] | | | | | | [address] | | | | | | [phone] | | | +--------+ + + + [...]
--- OUTSIDE RECORDS SUMMARY | ~2020-03-23 | XMS | Encounter Summary ---
Demographics + + + | Address | [address] | | | [place] [address] | + + + | Home Phone [...] + +------+ + | Care Room Service Manager Name | Role | Phone | + +------+ + | Justo Vazquez MD | PCP | | + +------+ + Encounter Details +--------+ + + + + | Date | Type | Department | Care Team | Description | +--------+ + + + + | 06/07/ | Telephone | [facility] | Alex Sanchez, | | | 2019 | | Pain Center at | ,PhD [address] | | | | | [facility] | [address] | | | | | [address] | [facility] [place] | | | | | Mailcode: CH15P | [address] | | | | | [place] for [facility] | [phone] | | | | | and Healing, | | | | | | | | | | | | Floor [facility] [place] | | | | | | [address] | | | | | | [phone] | | | +--------+ + + + [...]
--- OUTSIDE RECORDS SUMMARY | ~2020-03-23 | XMS | Encounter Summary ---
Demographics + + + | Address | [address] | | | [place] [address] | + + + | Home Phone [...] Team Providers + +------+ + | Care Clay Shop Supervisor Name | Role | Phone | + +------+ + | Justo Vazquez MD | PCP | | + +------+ + Encounter Details +--------+ + + + + | Date | Type | Department | Care Team | Description | +--------+ + + + + | 06/07/ | Telephone | [facility] | Alex Sanchez, | | | 2019 | | Pain Center at | ,PhD [address] | | | | | [facility] | [address] | | | | | [address] | [facility] [place] | | | | | Mailcode: CH15P | [address] | | | | | [place] for [facility] | [phone] | | | | | and Healing, | | | | | | | | | | | | Floor [facility] [place] | | | | | | [address] | | | | | | [phone] | | | +--------+ + + + [...]
--- OUTSIDE RECORDS SUMMARY | ~2020-03-23 | XMS | Encounter Summary ---
Demographics + + + | Address | [address] | | | [place] [address] | + + + | Home Phone [...] Team Providers + +------+ + | Care Tung Nut Grower Name | Role | Phone | [...] | | | | | syndrome | [facility] | [facility] | | | | | type 1 of | Rd | Rd [place], | | | | | left lower | [facility] [place] | [place] | | | | | extremity | [address] | [address] | | | | | Muscle pain | Phone: | Phone: | | | | | Procedures | [phone] | [phone] | | | | | REQUEST TO | Fax: | Fax: | | | | | SURGERY | [phone] | [phone] | | | | | ACCOUNTS PAYABLE ANALYST | | | +--------+---------+ + + + [...] | syndrome | [address] | | | | | type 1 of | Rd | Rd [place], | | | | | left lower | [place], [place] | [place] | | | | | extremity | [address] | [address] | | | | | Muscle pain | Phone: | Phone: | | | | | Procedures | [phone] | [phone] | | | | | REQUEST TO | Fax: | Fax: | | | | | SURGERY | [phone] | [phone] | | | | | ACCOUNTS PAYABLE ANALYST | | | | | | [...] | | | | | Procedures | [facility] [place] | [facility], | | | | | CONSULT TO | [address] | [place] | | | | | PAIN | | [address] | | | | | MANAGEMENT | | Phone: | | | | | | | [phone] | | | | | | | Fax: | | | | | | | [phone] | +--------+--------+ + + + + Encounter Details +--------+---------+ + + + | Date | Type | Department | Care Team | Description | +--------+---------+ + + + | 12/14/ | Office | [facility] | Alex Sanchez, | Complex regional | | 2018 | Visit | Pain Center at | ,PhD [address] | pain syndrome type 1 | | | | [facility] | [facility] [address] | of left lower | | | | [address] | [place], [place] | extremity (Primary | | | | Mailcode: CH15P | [address] | Dx); Muscle pain; | | | | [place] for [facility] | [phone] | Pain of upper | | | | and Healing, | | abdomen | | | | | | | | | | Floor [place], [place] | | | | | | [address] | | | | | | [phone] | | | +--------+---------+ + + + [...] the time to see us in the [facility]. It was great to [...] make sure this is scheduled with the Flux Mixer. PRE-PROCEDURE INSTRUCTIONS 1. Please bring a equipment [...] phone number for questions or concerns is [phone]. documented in this encounter Progress Notes Charline [...] D,PhD - 12/14/2017 10:25 AM PST [facility] Return Visit Date: 12/14/2017 Chief Complaint Patient presents with Back pain Low back pain Abdominal pain Pain in right leg Pain in left leg History of Present Illness: Tracie Farah is a 27 year old female, whose last appoi ntment at the [facility] was October 11, 2017, [...] treatment plan. * Follow up with [facility] as needed. Today, she complains [...] was treated by Christie Madrid MD in [place], [place] for three years before she abruptly ended her practice due to illness. This left her without a doctor to help her manage her chronic pain. In addition to her CRPS symptoms (diagnosed 2010), she has some sto mach issues that she has been working with Ilene Childs DNP, CONVEYOR BELT OPERATOR-C. She has a scar on her stomach [...] a lot of great improvements while in [place], [place]. Weaning her off of the narcotic [...] her medical history that she spent in [place], [place] where she part ook in a [...] Spinal cord stimulator trial - Nerve blocks PACK CHANGER Brief Pain Inventory: (ten= worst possible pain [...] Trial spinal cord stimulator leads 08/02/2012 [facility], Surgeon: Janak Riojas MD Cholecystectomy Appendectomy Other [...] History Social History Narrative Single. Goes to [employer] with a light load. Has been working at [employer], can' t work on [employer]. Has roommates. Allergies Allergen Reactions Morphine Anaphylaxis [...] by physician. Concentration is 150mg/mL. Compounded by [facility] ) LAMOTRIGINE 200 MG TABLET Take [...] GRAM SOLUTION Take as directed by [facility] Digestive [facility]- 2 gallon [...] and summary of old medical records (source: [employer]), as summarized in the body of the [...] to her by Christie Madrid MD in [place]. As she has since left the [...] I jacqueline poon spoken with our medical bill processor, Evelia Gonzalez MD who agrees that as [...] peripheral nerve stimulation. As she lives in [place], [place] with her family (3.5 hours away), [...] by Sonia Key. Alex Sanchez MD PhD Security Auditor Anesthesiology and Pain Management [facility] Post visit: I reviewed the [...] + + + + + | [facility] | [address] | [place] [address] | | | SERVICES, CORE | GUILLERMO [...]
--- OUTSIDE RECORDS SUMMARY | ~2020-03-23 | XMS | Encounter Summary ---
Demographics + + + | Address | [address] | | | [place] [address] [...] Medication Question | | 2016 | | [place] [id number] | | | | | | [address] | | | | | | Mailcode: [place] | | | | | | [facility] and | | | | | | Martina, [facility] 2 | | | | | | [place], [place] | | | | | | [address] | | | | | | [phone] | | | +--------+ + + + [...]
--- OUTSIDE RECORDS SUMMARY | ~2020-03-23 | XMS | Encounter Summary ---
Demographics + + + | Address | [address] | | | [place] [address] | + + + | Home Phone [...] Providers + +------+ + | Care Cook Night Name | Role | Phone | + [...] Rd | | | | | | [place], [place] | | | | | | [address] | | | +--------+ + + + [...]
--- OUTSIDE RECORDS SUMMARY | ~2020-03-23 | XMS | Encounter Summary ---
Demographics + + + | Address | [address] | | | [place] [address] | + + + | Home Phone [...] Team Providers + +------+ + | Care Intensivist Name | Role | Phone | + +------+ + | Justo Vazquez MD | PCP | | + +------+ + Encounter Details +--------+ + + + + | Date | Type | Department | Care Team | Description | +--------+ + + + + | 01/02/ | Telephone | [facility] | Ilene Bright, | | | 2019 | | Pain Center at | MOTOR EXPRESS CLERK [address] | | | | | [facility] | [place], [place] | | | | | [address] | [address] | | | | | Mailcode: CH15P | [phone] | | | | | [facility] | | | | | | and Healing, | | | | | | | | | | | | Floor [place], [place] | | | | | | [address] | | | | | | [phone] | | | +--------+ + + + [...]
--- OUTSIDE RECORDS SUMMARY | ~2020-03-23 | XMS | Encounter Summary ---
Demographics + + + | Address | [address] | | | [place] [address] | + + + | Home Phone [...] Providers + +------+ + | Care Manufacturing Quality Engineer Name | Role | Phone | + +------+ + | Allegra Gandhi | PCP | | + +------+ + Encounter Details +--------+ + + + + | Date | Type | Department | Care Team | Description | +--------+ + + + + | 08/02/ | Results | [facility] | Janak Riojas, | | | 2011 | Only | Pain Center at | MD [address] [facility] | | | | | [facility] | [facility] [id number] | | | | | [address] | [place], [place] | | | | | Mailcode: CH15 | [address] | | | | | [place] for [facility] | [phone] | | | | | and Martina, | | | | | | | | | | | | Floor [place], [place] | | | | | | [address] | | | | | | [phone] | | | +--------+ + + + [...]
--- OUTSIDE RECORDS SUMMARY | ~2020-03-23 | XMS | Encounter Summary ---
Demographics + + + | Address | [address] | | | [place] [address] | + + + | Home Phone [...] Team Providers + +------+ + | Care Boiling Tub Operator Name | Role | Phone [...] | | Pain Center at | ,PhD [address] [facility] | follow-up | | | | [facility] | [address] | | | | | [address] | [place], [place] | | | | | Mailcode: CH15P | [address] | | | | | [facility] | [phone] | | | | | and Martina, | | | | | | Building | | | | | | Floor [place], [place] | | | | | | [address] | | | | | | [phone] | | | +--------+ + + + [...]
--- OUTSIDE RECORDS SUMMARY | ~2020-03-23 | XMS | Encounter Summary ---
Demographics + + + | Address | [address] | | | [place] [address] | + + + | Home Phone [...] Team Providers + +------+ + | Care Chefs Name | Role | Phone | + [...] | (ortho question) | | | | [facility] | [facility] | | | | | [address] | [place], [place] | | | | | Mailcode: CH15P | [address] | | | | | [facility] | [phone] | | | | | and Healing, | | | | | | Building | | | | | | [place], [place] | | | | | | [address] | | | | | | [phone] | | | +--------+ + + + [...]
--- OUTSIDE RECORDS SUMMARY | ~2020-03-23 | XMS | Encounter Summary ---
Demographics + + + | Address | [address] | | | [place] [address] | + + + | Home Phone [...] Team Providers + +------+ + | Care Delineator Name | Role | Phone | + [...] | | | [address] | [place], [place] | | | | | Mailcode: Center | [address] | | | | | for Health and | [phone] | | | | | [facility], [facility] 2 | | | | | | [place], [place] | | | | | | [address] | | | | | | [phone] | | | +--------+ + + + [...]
--- OUTSIDE RECORDS SUMMARY | ~2020-03-23 | XMS | Encounter Summary ---
Demographics + + + | Address | [address] | | | [place] [address] | + + + | Home Phone [...] Providers + +------+ + | Care Laborer Wharf Name | Role | Phone | + +------+ + | Justo Vazquez MD | PCP | | + +------+ + Encounter Details +--------+ + + + + | Date | Type | Department | Care Team | Description | +--------+ + + + + | 01/06/ | Document-Ma | [facility] | Alex Sanchez, | | | 2018 | annemily | Pain Center at | ,PhD [address] | | | | | [facility] | [facility] [address] | | | | | [address] | [place], [place] | | | | | Mailcode: CH15P | [address] | | | | | [place] for [facility] | [phone] | | | | | and Healing, | | | | | | | | | | | | Floor [place], [place] | | | | | | [address] | | | | | | [phone] | | | +--------+ + + + [...]
--- OUTSIDE RECORDS SUMMARY | ~2020-03-23 | XMS | Encounter Summary ---
Demographics + + + | Address | [address] | | | [place] [address] | + + + | Home Phone [...] Providers + +------+ + | Care Casing Wringer Operator Name | Role | Phone | [...] and | | | | | | [facility], [place] [address] | | | | | | [place], [place] | | | | | | [address] | | | | | | [phone] | | | +--------+ + + + [...]
--- OUTSIDE RECORDS SUMMARY | ~2020-03-23 | XMS | Encounter Summary ---
Demographics + + + | Address | [address] | | | [place] [address] | + + + | Home Phone [...] Team Providers + +------+ + | Care Teaching Young Name | Role | Phone | + +------+ + | Justo Vazquez MD | PCP | | + +------+ + Encounter Details +--------+ + + + + | Date | Type | Department | Care Team | Description | +--------+ + + + + | 01/09/ | Documentati | Orthopaedics | Ranjeet Amanda, | | | 2018 | on | Faculty at [place] | [address] | | | | | for Health and | [place], [place] | | | | | Healing [address] | [address] | | | | | Ave Mailcode: | [phone] | | | | | [facility] | | | | | | Health and Healing, | | | | | | | | | | | | Floor [place], [place] | | | | | | [address] | | | | | | [phone] | | | +--------+ + + + [...]
--- OUTSIDE RECORDS SUMMARY | ~2020-03-23 | XMS | Clinical Summary ---
Demographics + + + | Address | [address] | | | [place] [address] | + + + | Home Phone [...] + | Organization | [facility] Kitchen | | | and [...] | [place] | | | | | [address] | | + + + + + | Bryant Farah | ECON | Unknown | | + + + + + Care Team Providers + +------+ + | Care Personal Service Workers Name | Role | Phone | [...] +--------+ +---------+--------+ | MEDICARE | MEDICA | [id number] | 07/15/20 | [phone] | | Medica | | | RE | | 15-Pre | 5 | | re | | | PART A | | sent | | | | | | AND B | | | | | | + +--------+ +--------+ +---------+--------+ | MEDICAID [place] | MEDICA | [id number] | | [phone] | | Medica | [...] | 1990 | [phone] | [place] [address] | | | evita | | | 6 (Home) | | + +--------+ +--------+ + +"
--- OUTSIDE RECORDS SUMMARY | ~2020-03-23 | XMS | Encounter Summary ---
Demographics + + + | Address | [address] | | | [place] [address] | + + + | Home Phone [...] Providers + +------+ + | Care Greens Laborer Name | Role | Phone | [...] 08/11/ | Documentati | [facility]EVIN YANEZ at [facility] | Lab, Gi Procedure | Medical Records | | 2015 | on | [address] | | Review | | | | [address] Mailcode: | | | | | | OC[facility]L [facility] | | | | | | Health and Healing, | | | | | | Building 2 | | | | | | [place], [place] | | | | | | [address] | | | | | | [phone] | | | +--------+ + + + [...]
--- OUTSIDE RECORDS SUMMARY | ~2020-03-23 | XMS | Encounter Summary ---
Demographics + + + | Address | [address] | | | [place] [address] | + + + | Home Phone [...] Team Providers + +------+ + | Care Paving And Surfacing Labourer Name | Role | Phone | [...] at [facility] [address] | MD Melissa | | | | | [address] | | | | | | Mailcode: Center | | | | | | for Health and | | | | | | Healing, Building 2 | | | | | | [place], [place] | | | | | | [address] | | | | | | [phone] | | | +--------+ + + + [...]
--- OUTSIDE RECORDS SUMMARY | ~2020-03-23 | XMS | Encounter Summary ---
Demographics + + + | Address | [address] | | | [place] [address] | + + + | Home Phone [...] Providers + +------+ + | Care Sales Consultant Residential Manager Name | Role | Phone | [...] [facility] | [address] | | | | | [address] | [facility] [place] | | | | | Mailcode: CH15P | [address] | | | | | [place] for [facility] | [phone] | | | | | and Healing, | | | | | | | | | | | | Floor [facility] [place] | | | | | | [address] | | | | | | [phone] | | | +--------+ + + + [...]
--- OUTSIDE RECORDS SUMMARY | ~2020-03-23 | XMS | Encounter Summary ---
Demographics + + + | Address | [address] | | | [place] [address] | + + + | Home Phone [...] [address] | | | | | [facility] | [facility] | | | | | [address] | [facility] [place] | | | | | Mailcode: CH15P | [address] | | | | | [place] for [facility] | [phone] | | | | | and Healing, | | | | | | | | | | | | Floor [place], [place] | | | | | | [address] | | | | | | [phone] | | | +--------+ + + + [...]
--- OUTSIDE RECORDS SUMMARY | ~2020-03-23 | XMS | Encounter Summary ---
Demographics + + + | Address | [address] | | | [place] [address] | + + + | Home Phone [...] Providers + +------+ + | Care Stunt Performer Name | Role | Phone | [...] | | | | regional | ,PhD [address] | | | | | | pain | [address] | | | | | | syndrome | [address] | | | | | | type 1 of | Rd | | | | | | left lower | [place], [place] | | | | | | extremity | [address] | | | | | | Other | Phone: | | | | | | chronic pain | [phone] | | | | | | S/P | Fax: | | | | | | insertion of | [phone] | | | | | | spinal [...] | | | | regional | ,PhD 0827 | | | | | | pain | [address] | | | | | | syndrome | [address] | | | | | | type 1 of | Rd | | | | | | left lower | [place], [place] | | | | | | extremity | [address] | | | | | | Other | Phone: | | | | | | chronic pain | [phone] | | | | | | S/P | Fax: | | | | | | insertion of | [phone] | | | | | | spinal [...] + + | 04/26/ | Telephone | [facility] Comprehensive | Alex Sanchez, | | | 2018 | | Pain Center at | ,PhD [address] [facility] | | | | | [facility] | [facility] | | | | | [address] | [place], [place] | | | | | Mailcode: CH15P | [address] | | | | | [facility] | [phone] | | | | | and Martina, | | | | | | | | | | | | Floor [place], [place] | | | | | | [address] | | | | | | [phone] | | | +--------+ + + + [...]
--- OUTSIDE RECORDS SUMMARY | ~2020-03-23 | XMS | Encounter Summary ---
Demographics + + + | Address | [address] | | | [place] [address] | + + + | Home Phone [...] Providers + +------+ + | Care Management Retail Intern Name | Role | Phone | [...]
--- OUTSIDE RECORDS SUMMARY | ~2020-03-23 | XMS | Encounter Summary ---
Demographics + + + | Address | [address] | | | [place] [address] | + + + | Home Phone [...] Team Providers + +------+ + | Care Billing Administrator Name | Role | Phone | + +------+ + | Allegra Chaudhary | PCP | | + +------+ + Encounter Details +--------+ + + + + | Date | Type | Department | Care Team | Description | +--------+ + + + + | 10/21/ | Telephone | [facility] | Antony Beltre, | | | 2014 | | [place] at [facility] [address] | [address] | | | | | [address] | [place] [address] | | | | | Mailcode: [place] | [phone] | | | | | for Health and | | | | | | [address]ina, Building 2 | | | | | | [place], [place] | | | | | | [address] | | | | | | [phone] | | | +--------+ + + + [...]
--- OUTSIDE RECORDS SUMMARY | ~2020-03-23 | XMS | Encounter Summary ---
Demographics + + + | Address | [address] | | | [place] [address] | + + + | Home Phone [...] Providers + +------+ + | Care Senior Sql Server Dba Name | Role | Phone | [...] Oliveira | | 2011 | IP | [address] | | House - Approved | | | | [place], | | | | | | [place] [address] | | | +--------+ + + + [...]
--- OUTSIDE RECORDS SUMMARY | ~2020-03-23 | XMS | Encounter Summary ---
Demographics + + + | Address | [address] | | | [place] [address] | + + + | Home Phone [...] Providers + +------+ + | Care Student Life Vice President Name | Role | Phone [...] (plan of care) | | | | [facility] | [address] | | | | | [address] | [place], [place] | | | | | Mailcode: CH15P | [address] | | | | | [facility] | [phone] | | | | | and Healing, | | | | | | Building | | | | | | [place], [place] | | | | | | [address] | | | | | | [phone] | | | +--------+ + + + [...]
--- OUTSIDE RECORDS SUMMARY | ~2020-03-23 | XMS | Encounter Summary ---
Demographics + + + | Address | [address] | | | [place] [address] | + + + | Home Phone [...] Providers + +------+ + | Care Die Welder Name | Role | Phone | [...] Bowel Clean-out | | 2015 | | [place] at [facility] [address] | MD Melissa | | | | | [address] | | | | | | Mailcode: [place] | | | | | | [facility] and | | | | | | [facility], [facility] 2 | | | | | | [place], [place] | | | | | | [address] | | | | | | [phone] | | | +--------+ + + + [...]
--- OUTSIDE RECORDS SUMMARY | ~2020-03-23 | XMS | Encounter Summary ---
Demographics + + + | Address | [address] | | | [place] [address] | + + + | Home Phone [...] Providers + +------+ + | Care Chief Mechanical Officer Name | Role | Phone | [...] + | 01/11/ | Telephone | [facility] Comprehensive | Alex Sanchez, | Referral To | | 2018 | | Pain Center at | ,PhD [address] | Orthopedics (discuss | | | | [facility] | [address] | ortho appointment) | | | | [address] | [facility] [place] | | | | | Mailcode: CH15 | [address] | | | | | [facility] | [phone] | | | | | and Healing, | | | | | | | | | | | | [facility] [place] | | | | | | [address] | | | | | | [phone] | | | +--------+ + + + [...]
--- OUTSIDE RECORDS SUMMARY | ~2020-03-23 | XMS | Encounter Summary ---
Demographics + + + | Address | [address] | | | [place] [address] [...] + +------+ + | Care Welding Machine Operator Submerged Arc Name | Role | Phone | + [...] | | Pain | Complex | Ilene, CIGARETTE INSPECTOR | Catriona M, | | | | Management | regional | [address] | PSY D [address] | | | | | pain | Ave | [address] | | | | | syndrome | [place], [place] | [place], [place] | | | | | type 1 of | [address] | [address] Phone: | | | | | left lower | Phone: | [phone] | | | | | extremity | [phone] | Fax: | | | | | Intractable | Fax: | [phone] | | | | | cyclical | [phone] | | | | | | vomiting [...] | | | | | | [facility] [place] | | | | | | [...] Office | Pain Center at [facility] | Jamel Bravo, | 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 [address] | with mixed anxiety | | | | Mailcode: [facility] | [place], [place] | and depressed mood | | | | [place] for [facility] | [address] | (Primary Dx); | | | | and Healing, | [phone] | Complex regional | | | | | | pain syndrome type 1 | | | | Floor [place], [place] | | of left lower | | | | [address] | | extremity; Abdominal | | | | [phone] | | pain, unspecified | | | [...] Bravo, PhD - 10/11/2017 10:50 AM [facility] Initial Psychologica l Evaluation IDENTIFYING INFORMATION: Tracie Farah is a 27 y.o. female Date of : 1990 Consulting Psychologist: JAMEL BRAVO PHD Consultation Date: 10/11/2017 Referring Provider: [place] Identifying Information: Tracie Farah is a 27 y.o. female who lives with her paren naeem in [place], [place]. The patient was referred for pain [...] by physician. Concentration is 150mg/mL. Compounded by [employer] ([phone]), Disp: , Rfl: 5 lamoTRIgine 200 mg [...] oral recon soln, Take as directed by [facility]- 2 gallon bowel prep, Disp: 8000 [...] e. 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 For enjoyment the patient watches TV, reads, [...] She was alert, oriented, pleasant and cooperat enlia. Speech was fluent and thought content was [...] time I spent was approximately 50 minutes zjnq-gc-iyco with the patient and approxima tely 1 hour 40 minutes of wds-mxtx-ke-face testing, interpreting and synthesizing results. Jamel Bravo, PhD [facility] AT [facility] 15TH FLOOR [address] [facility] Mail Code: Ch15p [place] [address] documented in this en counter [...]
--- OUTSIDE RECORDS SUMMARY | ~2020-03-23 | XMS | Encounter Summary ---
Demographics + + + | Address | [address] | | | [place] [address] | + + + | Home Phone [...] + +------+ + | Care Clinical Laboratory Scientist Name | Role | Phone [...] + + | 10/30/ | Refill | [facility] | Alex Sanchez, | Refill Request | | 2018 | | Pain Center at | ,PhD [address] [facility] | | | | | [facility] | [address] | | | | | [address] | [place], [place] | | | | | Mailcode: CH15P | [address] | | | | | [facility] | [phone] | | | | | and Martina, | | | | | | Building | | | | | | Floor [facility] [place] | | | | | | [address] | | | | | | [phone] | | | +--------+--------+ + + + [...]
--- OUTSIDE RECORDS SUMMARY | ~2020-03-23 | XMS | Encounter Summary ---
Demographics + + + | Address | [address] | | | [place] [address] | + + + | Home Phone [...] Team Providers + +------+ + | Care Turning Lathe Tender Name | Role | Phone | + +------+ + | Justo Vazquez MD | PCP | | + +------+ + Encounter Details +--------+ + + + + | Date | Type | Department | Care Team | Description | +--------+ + + + + | 12/07/ | Pharmacy | [facility] | | | | 2019 | Visit | & [facility] | | | | | | [address] | | | | | | Mailcode: [place] | | | | | | [facility] Health and | | | | | | Healing, Building 1 | | | | | | [place], [place] | | | | | | [address] | | | | | | [phone] | | | +--------+ + + + [...]
--- OUTSIDE RECORDS SUMMARY | ~2020-03-23 | XMS | Encounter Summary ---
Demographics + + + | Address | [address] | | | [place] [address] | + + + | Home Phone [...] Providers + +------+ + | Care Residential Builder Name | Role | Phone | [...] | | Pain Center at | SALES ADVISOR [address] | | | | | [facility] | [place], [place] | | | | | [address] | [address] | | | | | Mailcode: CH15P | [phone] | | | | | [facility] | | | | | | joana Mack, | | | | | | Building | | | | | | Floor [place], [place] | | | | | | [address] | | | | | | [phone] | | | +--------+ + + + [...]
--- OUTSIDE RECORDS SUMMARY | ~2020-03-23 | XMS | Encounter Summary ---
Demographics + + + | Address | [address] | | | [place] [address] | + + + | Home Phone [...] on | Center at [facility] [address] | [address] | | | | | [address] | [place], [place] | | | | | Mailcode: Center | [address] | | | | | for Health and | [phone] | | | | | [facility], [facility] 2 | | | | | | [place], [place] | | | | | | [address] | | | | | | [phone] | | | +--------+ + + + [...]
--- OUTSIDE RECORDS SUMMARY | ~2020-03-23 | XMS | Encounter Summary ---
Demographics + + + | Address | [address] | | | [place] [address] | + + + | Home Phone [...] Providers + +------+ + | Care Gravure Printing Machinist Name | Role | Phone | + +------+ + | Justo Vazquez MD | PCP | | + +------+ + Encounter Details +--------+ + + + + | Date | Type | Department | Care Team | Description | +--------+ + + + + | 10/03/ | Telephone | [facility] | Ilene Bright, | | | 2017 | | Pain Center at | PERINATAL COORDINATOR [address] | | | | | [facility] | [place], [place] | | | | | [address] | [address] | | | | | Mailcode: CH15P | [phone] | | | | | [facility] | | | | | | and Healing, | | | | | | | | | | | | Floor [place], [place] | | | | | | [address] | | | | | | [phone] | | | +--------+ + + + [...]
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
--- OUTSIDE RECORDS SUMMARY | ~2020-03-23 | XMS | Encounter Summary ---
Demographics + + + | Address | [address] | | | [place] [address] | + + + | Home Phone [...] Providers + +------+ + | Care Hotel Room Attendant Name | Role | Phone [...] Medical Records | | 2017 | | [place] [facility] [address] | MD Melissa | Review | | | | [address] | | | | | | Mailcode: [place] | | | | | | and | | | | | | [facility] 2 | | | | | | [place], [place] | | | | | | [address] | | | | | | [phone] | | | +--------+ + + + [...]
--- OUTSIDE RECORDS SUMMARY | ~2020-03-23 | XMS | Encounter Summary ---
Demographics + + + | Address | [address] | | | [place] [address] | + + + | Home Phone [...] Team Providers + +------+ + | Care Stereoptician Name | Role | Phone | + +------+ + | Justo Vazquez MD | PCP | | + +------+ + Encounter Details +--------+ + + + + | Date | Type | Department | Care Team | Description | +--------+ + + + + | 08/30/ | Documentati | Pain Center at [facility] | Jamel Madden G, | | | 2018 | on | [address] | PhD [address] | | | | | Mailcode: CH15P | [facility] [place] | | | | | [place] for [facility] | [address] | | | | | and Healing, | [phone] | | | | | | | | | | | Floor [facility] [place] | | | | | | [address] | | | | | | [phone] | | | +--------+ + + + [...]
--- OUTSIDE RECORDS SUMMARY | ~2020-03-23 | XMS | Encounter Summary ---
Demographics + + + | Address | [address] | | | [place] [address] | + + + | Home Phone [...] Providers + +------+ + | Care Furniture Upholsterer Apprentice Name | Role | Phone | [...] | | | | | unspecified | [facility] | [address] | | | | | location | Rd | [facility] | | | | | Procedures | [place], [place] | Rd [place], | | | | | CONSULT TO | [address] | [place] | | | | | PAIN | | [address] | | | | | MANAGEMENT | | Phone: | | | | | | | [phone] | | | | | | | Fax: | | | | | | | [phone] | +--------+--------+ + + + + Encounter Details +--------+---------+ + + + | Date | Type | Department | Care Team | Description | +--------+---------+ + + + | 05/08/ | Office | 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 Goes to [employer] with a light load. 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 Has roommates. Allergies Allergen Reactions Morphine Anaphylaxis [...] by physician. Concentration is 150mg/mL. Compounded by [facility] ) KETOROLAC IM Inject into the [...] and summary of old medical records (source: [employer]), as summarized in the body of [...] Sonia Key. Alex Sanchez MD PhD Maintenance Mechanic Engine Anesthesiology and Pain Management [facility] documented in this encounter Plan of [...]
--- OUTSIDE RECORDS SUMMARY | ~2020-03-23 | XMS | Encounter Summary ---
Demographics + + + | Address | [address] | | | [place] [address] | + + + | Home Phone [...] Team Providers + +------+ + | Care Milk Vendor Name | Role | Phone | [...] Medical Records | | 2017 | | [place] [id number] | | Review | | | | [address] | | | | | | Mailcode: [place] | | | | | | [facility] and | | | | | | [facility] 2 | | | | | | [place], [place] | | | | | | [address] | | | | | | [phone] | | | +--------+ + + + [...]
--- OUTSIDE RECORDS SUMMARY | ~2020-03-23 | XMS | Encounter Summary ---
Demographics + + + | Address | [address] | | | [place] [address] | + + + | Home Phone [...] + +------+ + | Care Machine Shop Instructor Name | Role | Phone | [...] | | | 2019 | Event | [facility] | MD Juan [address] | | | | | and Healing Surgery | [address] | | | | | Center Admitting | [place], [place] | | | | | Desk Located on the | [address] | | | | | 4th floor [address] | [phone] | | | | | [address], | | | | | | [place] [address] | Arben Valerio MD | | | | | | [address] | | | | | | [address] | | | | | | [place], [place] | | | | | | [address] | | | | | | [phone] | | | | | | | [...]
--- OUTSIDE RECORDS SUMMARY | ~2020-03-23 | XMS | Encounter Summary ---
Demographics + + + | Address | [address] | | | [place] [address] | + + + | Home Phone [...] Team Providers + +------+ + | Care Capacitor Pack Press Operator Name | Role | Phone | + +------+ + | Justo Vazquez MD | PCP | | + +------+ + Encounter Details +--------+ + + + + | Date | Type | Department | Care Team | Description | +--------+ + + + + | 12/07/ | Tanker Serviceman | [facility] at [facility] | Ava Carbajal | | | 2016 | | [place] [address] Katy Torres MD | | | | | [address] Mailcode: | | | | | | [facility] [place] for | | | | | | Health and Healing, | | | | | | Building 2 | | | | | | [place], [place] | | | | | | [address] | | | | | | [phone] | | | +--------+ + + + [...]
--- OUTSIDE RECORDS SUMMARY | ~2020-03-23 | XMS | Encounter Summary ---
Demographics + + + | Address | [address] | | | [place] [address] | + + + | Home Phone [...] Team Providers + +------+ + | Care Fly Maker Name | Role | Phone | [...] on | Center at [facility] [address] | [address] | | | | | [address] | [place], [place] | | | | | Mailcode: Center | [address] | | | | | for Health and | [phone] | | | | | [facility] 2 | | | | | | [place], [place] | | | | | | [address] | | | | | | [phone] | | | +--------+ + + + [...]
--- OUTSIDE RECORDS SUMMARY | ~2020-03-23 | XMS | Encounter Summary ---
Demographics + + + | Address | [address] | | | [place] [address] | + + + | Home Phone [...] Providers + +------+ + | Care Steel Worker Name | Role | Phone | [...] | | 2017 | | Center at [facility] [address] | | pain | | | | [address] | | | | | | Mailcode: [place] | | | | | | for Health and | | | | | | [facility], Building 2 | | | | | | [place], [place] | | | | | | [address] | | | | | | [phone] | | | +--------+ + + + [...]
--- OUTSIDE RECORDS SUMMARY | ~2020-03-23 | XMS | Encounter Summary ---
Demographics + + + | Address | [address] | | | [place] [address] | + + + | Home Phone [...] Team Providers + +------+ + | Care Consultant Dietitian Name | Role | Phone | + [...] on | Pain Center at | [facility] | evaluation (No | | | | [facility] | [facility] [id number] | evidence of drug | | | | [address] | [place], [place] | abuse) | | | | Mailcode: [facility] | [address] | | | | | [facility] | [phone] | | | | | and Healing, | | | | | | Building | | | | | | Floor [place], [place] | | | | | | [address] | | | | | | [phone] | | | +--------+ + + + [...]
--- OUTSIDE RECORDS SUMMARY | ~2020-03-23 | XMS | Encounter Summary ---
Demographics + + + | Address | [address] | | | [place] [address] | + + + | Home Phone [...] Team Providers + +------+ + | Care Laundry Helper Name | Role | Phone | [...]
--- OUTSIDE RECORDS SUMMARY | ~2020-03-23 | XMS | Encounter Summary ---
Demographics + + + | Address | [address] | | | [place] [address] | + + + | Home Phone [...] Providers + +------+ + | Care Director Surgical Name | Role | Phone | [...] | | Pain | Complex | Ilene, SAND TESTER | Hanna M, | | | | Management | regional | [address] | PSY D [address] | | | | | pain | Ave | [address] | | | | | syndrome | [place], [place] | [place], [place] | | | | | type 1 of | [address] | [address] Phone: | | | | | left lower | Phone: | [phone] | | | | | extremity | [phone] | Fax: | | | | | Intractable | Fax: | [phone] | | | | | cyclical | [phone] | | | | | | vomiting [...] Pain Medicine | Diagnoses | Chasity, | Relationship Consultant Chh1 | | | | / Pain | Abdominal | MD Kenny | [address] | | | | Management | pain, | [address] | Ave | | | | | unspecified | [address] | Mailcode: | | | | | location | Rd | CH15P Center | | | | | Procedures | [place], [place] | for Health | | | | | CONSULT TO | [address] | and Healing, | | | | | PAIN | | Building | | | | | MANAGEMENT | | 1,15th Floor | | | | | | | [place], [place] | | | | | | | [address] | | | | | | | Phone: | | | | | | | [phone] | | | | | | | Fax: | | | | | | | [phone] | +--------+--------+ + + + + Encounter Details +--------+---------+ + + + | Date | Type | Department | Care Team | Description | +--------+---------+ + + + | 04/25/ | Office | [facility] Comprehensive | Ilene Bright, | Abdominal pain, | | 2017 | Visit | Pain Center at | SAND TESTER [address] | unspecified location | | | | [facility] | [place], [place] | (Primary Dx); | | | | [address] | [address] | Complex regional | | | | Mailcode: CH15P | [phone] | pain syndrome type 1 | | | | [place] for [facility] | | of left lower | | | | and Healing, | | extremity; | | | | | | Intractable cyclical | | | | Floor [place], [place] | | vomiting with | | | | [address] | | nausea; | | | | [phone] | | Constipation, | | | | [...] Adult Pain Service /[facility] [address] [place] [address] documented in this encounter Progress Notes Ilene Bright FNP - 04/25/2017 1:35 PM PDTFormatting of this note might be different fr om the original. Date: 04/25/2017 was referred for pain management consultation by Kenny Gaspar MD [address] [place] [id number] Reason for consult: abdominal pain Chief Complaint Patient presents with Abdominal pain Back pain History of Present Illness: Tracie Farah is a 26 year old female with a history of depression, complex regional pain syndrome (left lower extremity) for this she follows with a neurologist at [facility] in [facility]. She has been stable on her [...] effective treatments include: medication (toradol). lives in [place], [place] alone and with her children. She receives disability. does not have specific goals for today's appointment. 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 No Do you drink alcohol to decrease [...] History Social History Narrative Single. Goes to [employer] with a light load. Has been working at [employer], can' t work on [employer]. Has roommates. Allergies Allergen Reactions Morphine Anaphylaxis [...] by physician. Concentration is 150mg/mL. Compounded by [facility] ) LAMOTRIGINE 200 MG TABLET Take [...] ENTEROGRAPHY ABDOMEN AND PELVIS WWO CONTRAST Order: [id number] Performed: 01/31/2017 4:34 PM Status: Final result [...] 3:50 PM X-RAY ABDOMEN 1 VIEW Order: [id number] Performed: 03/19/2017 6:52 AM Status: Final result [...] and summary of old medical records (source: [employer]), as summarized in the body of the [...] possible opioid-sparing effects (Stevie Torres. et al.C First Coverage, (8):1655-70, 2007) and evidence that it can [...] MD [email or web address] Central sensitization Ilene Childs DNP, SAND TESTER-C Adult Pain Service /[facility] [address] [place] [address] Display Progress Note in MyChart: No documented [...]
[~2020-03-23 06:39] MED LIST changes: +MACROBID 100 M100 MG PO
--- OUTSIDE RECORDS SUMMARY | 2020-03-23 06:42 | XMS ---
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 Events No recent Security Events currently on file CRITERIA MET - Group Notification - [facility] - Has Care Guidelines - PDMP - [facility] - 2 Visits in 30 Days CARE PROVIDERS MARCELINO PERRY Internal Medicine 07/18/2018-Current PHONE: [phone] Aron Hannah Anesthesiology: Pain Medicine 07/18/2018-Current PHONE: Unknown Guidelines Source: [facility] Guidelines Date: 08/22/2019 Care Recommendation: PATIENT HAS HISTORY COMPLEX REEGIONAL PAIN SYNDROME WELL CYCLICAL ABDOMINAL PAIN/NAUSEA/VOMITING.\T\nbsp; UNDER TREATMENT WITH ARON HANNAH MD PHD PAIN MANAGMENT [facility].\T\nbsp; FOLLOW THIS REGIMEN WHEN PRESENTING TO ED FOR RESOLUTION OF SYMPTOMS: *HYDRATION IV *HYDROMORPHONE 1MG IV * KETOROLAC 30 MG IV *PROMETHAZINE 25MG IV Additional care guidelines exist for the following facilities: [facility] ( 05/21/2019 ) Care History Medical/Surgical 03/06/2020 [...] Center - Patient is currently established with [facility]. If patient is seen in the ED during business hours. Please contact [facility]Ws at [facility] at [phone]. Care Recommendation: This patient has had 5 or more Emergency Department visits in the last 12 months.\T\nbsp; Patient requires education on the scope and purpose of the ED as an acute care provider not a Primary Care Provider and should not be utilized for chronic conditions.\T\nbsp; If patient returns to ED please contact Community Health WorkerIlene at [phone]. These are guidelines and the provider should exercise clinical judgment when providing care. E.D. VISIT COUNT (12 MO.) 6 [facility] TOTAL 6 NOTE: Visits indicate total known visits. 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 - Other chronic pain - Nicotine dependence, unspecified, uncomplicated - shelter (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 - Allergy status to other drugs, medicaments and biological sub - Cyclical vomiting syndrome unrelated to migraine - Unspecified abdominal pain - Allergy status to narcotic agent status 08/12/2019 15:11 [place] [place] TYPE: Emergency COMPLAINT: - ABD PAIN, NAUSEA 08/10/2019 13:43 [facility] [place] TYPE: Emergency COMPLAINT: - ABD/BACK PAIN, VOMITING DIAGNOSES: - 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 - Upper abdominal pain, unspecified - Allergy status to narcotic agent status - Cyclical vomiting, not intractable 08/08/2019 18:18 [facility] [place] TYPE: Emergency COMPLAINT: - SEVERE ABD AND BACK PAIN, VOMITING DIAGNOSES: - 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 - Complex regional pain syndrome I, unspecified - Unspecified abdominal pain - Allergy status to other drugs, medicaments and biological sub - Allergy status to narcotic agent status INPATIENT VISIT TRACKING (12 MO.) 08/12/2019 15:12 [facility] [place] TYPE: Observation COMPLAINT: - INTACKABLE ABDOMINAL PAIN DIAGNOSES: - shelter (current) use of opiate analgesic - Allergy status to narcotic agent status - Unspecified mood [affective] disorder - Complex regional pain syndrome I of left lower limb - Nausea with vomiting, unspecified - Right upper quadrant pain - Chronic pain syndrome - Other halfway (current) drug therapy - Other constipation [email or web address]
--- NOTE | 2020-03-23 15:15 | NUR ---
29 YEAR OLD FEMALE PATIENT ADMITTED TO CCU UNDER Louise VILLARREAL/VICKY WITH DX OF BILAT P.E. HAS LONG MEDICL HISTORY OF CYCLIC VOMITING AND COMPLEX EGINAL PAIN SYNDROME. PATIENT CAME TO ED TODAY, R/T NAUSEA. TOLD STAFF SHE LEFT CALF DISCOMFORT. US OF LEFT LEG DONE, WAS NEGATIVE OF DVT. D-DIMER>5000. CT OF CHEST SHOWED BILAT P.E. UPON ADMIT PATIENT IS AWAKE ALERT AND ORIENTED. DENIES CHEST PAIN,SHORTNESS OF BREATH. ON RA SATS 98%. ADMISSION PROCESS STARTED.
--- NOTE | 2020-03-23 15:20 | NUR ---
UNABLE TO ASPIRATE BLOOD FROM PORT SITE. IVF INFUSING. PATIENT SAID THEY WERE ABLE TO ASPIRATE BLOOD IN ED.
--- NOTE | 2020-03-23 16:00 | NUR ---
REQUESTIONG PAIN MEDICATION, PAIN IN ABD/LEFT LEG. DILAUDID 0.5 MG IV GIVEN.
--- NOTE | 2020-03-23 16:35 | NUR ---
Glenroy BETANCOURT RN HERE TO ASSESS PORT. BLOOD ASPIRATED. PORT LINE REDRESSED..
--- NOTE | 2020-03-23 16:49 | NUR ---
THIS RN CALLED TO ROOM TO ASSIST WITH PORT. PTS RN, JAKUB, REPORTS THEY HAVE BEEN UNABLE TO OBTAIN BLOOD RETURN FROM PTS PORT. THIS RN ASSESSED, GYMNASTICS PERFORMED. BRISK BLOOD RETURN NOTED WITH PATIENT FLAT ON BACK WITH RIGHT ARM RAISED AND HEAD TURNED TO LEFT SIDE. DRESSING NOTED TO BE LOOSE. DRESSING CHANGE DONE PER PROTOCOL, PT REPORTS ALLERGY TO BIO PATCH THEREFORE GAUZE AND TEGADERM APPLIED. PTS RN UPDATED. IV INFUSION RESUMED. NO ADDITIONAL REQUESTS OR COMPLAINTS AT THIS TIME. CALL LIGHT WITHIN REACH.
--- NOTE | 2020-03-23 18:01 | NUR ---
PATIENT UP TO BATHROOM AND BACK TO BED, IND. CALL LIGHT IN REACH. NO FURTHER NEEDS AT THIS TIME.
--- NOTE | 2020-03-23 19:48 | NUR ---
PATIENT UP TO THE BATHROOM. STEADY ON HER FEET. VOID 100 ML. DENIES ANY OTHER NEEDS.
--- NOTE | 2020-03-23 20:00 | NUR ---
V/S AT THIS TIME ARE WDL, PT DID HAVE A BM X1 A LITTLE WHILE AGO. PT HOWEVER HAS ONLY VOIDED 100MLS SINCE ARRIVAL TO CCU. WILL CONTINUE TO MONITOR. ALL LOBES ARE CLEAR BUT VERY DIMM IN THE BASES. PT DENIES SOB AND O2 SATS ON ROOM AIR ARE WDL. ABD SOUNDS ARE PRESENT, ABD IS NOT DISTENDED BUT TENDER TO TOUCH. NO PERIPHERAL EDEMA WAS NOTED. PT OVERALL SEEMS IN GOOD SPIRITS. PT IS AAOX4 AND NEUROLOGIALLY INTACT.
--- NOTE | 2020-03-23 22:00 | NUR ---
PT HAD SOME NAUSEA, PRN 12.5MG IV PHENERGAN TO BE GIVEN. PT NOW IS IN BED. OF 2199 PT HAS VOIDED 275MLS. WILL CONTINUE TO MONITOR. PT IN BED TRYING TO SLEEP NOW.
--- NOTE | 2020-03-24 | NUR ---
NAUSEA IS BETTER AT THIS TIME. PAIN NOW IS 7/10, PRN DILAUDED GIVEN. ALL LOBES ARE STILL CLEAR WITH THE BASES DIMM, ESPECIALLY THE RLL. PT IS NEUROLOGICALLY WDL, PEDIS AND RADIAL PULSES WDL, PT DENIES NUMBNESS OR TINGLING IN LEGS OR ARMS. V/S ARE WDL, URINE OUTPUT HAS PICKED UP SINCE START OF SHIFT AND PT NOW IS VOIDING ADEQUATE AMOUNTS. ABD SOUNDS ARE PRESENT, ABD IS TENDER TO TOUCH. NO NEW CONCERNS WERE NOTED AT THIS TIME. WILL CONTINUE TO MONITOR.
--- NOTE | 2020-03-24 01:50 | NUR ---
PT IS SLEEPING AT THIS TIME. LOW BP IS DUE TO PT LAYING ON HER SIDE.
--- NOTE | 2020-03-24 04:15 | NUR ---
PT HAD BEEN SLEEPING FOR A WHILE NOW. V/S ARE WDL WHEN PT IS RESTING. PT DENIES SOB, AND DID NOT VERBALIZE THAT SHE WAS IN PAIN AT THIS TIME. LOBES ARE CLEAR AND DIMINISHED IN THE BASES. NEUROLOGICALLY PT IS INTACT. NO NEW CONCERNS HAVE BEEN NOTED.
--- NOTE | 2020-03-24 06:05 | NUR ---
PT HAD SOME NAUSEA AGAIN A BIT EARLIER. PRN PHENERGAN 12.5MG IV WAS GIVEN. AT THIS TIME HER NAUSEA SEEMS TO BE BETTER. PT IS BACK TO SLEEP.
--- NOTE | 2020-03-24 06:07 | NUR ---
PT OVERALL HAD AN UNEVENTFULL NIGHT. LEG AND ABD PAIN AT TIMES WERE ISSUES AND SO WAS NAUSEA. PRN MEDS WERE GIVEN. ALL LOBES HAVE REMAINED CLEAR AND ARE DIMM IN THE BASES. PT HAS DENIES SOB ALL SHIFT. PT IS NEUROLOGICALLY INTACT. ABD SOUNDS ARE PRESENT BUT ABD IS TENDER TO TOUCH, NO PERIPHERAL EDEMA NOTED. PT GETS SINUS TACHY AT TIMES WHEN MOVING ABOUT. OVERALL BP'S HAVE BEEN SOFT. HOWEVER, BP'S HAVE BEEN LOW DUE TO THE FACT THAT PT WAS LAYING ON HER SIDE SLEEPING. OTHER V/S HAVE BEE WDL. URINE OUTPUT IS ADEQUATE AND PO INTAKE IS GOOD.
--- NOTE | 2020-03-24 07:27 | NUR ---
PT REPORT RECIEVED, CARE ASSUMED AT THIS TIME.
--- NOTE | 2020-03-24 07:52 | NUR ---
PT ASSESSMENT COMPLETED. PT DROWSY BUT WAKES TO VOICE. DENIES PAIN OR NAUSEA AT THIS TIME. LUNGS SOUND DIMINISHED IN BOTH BASES. FINE CRACKLES NOTED IN LEFT LOWER LOBE.HEART RATE IN THE 70-80 AT REST. SPO2 100 PERCENT ON ROOM. PLAN OF CARE FOR DAY DISCUSSED. CALL LIGHT WITHIN REACH. NO FURTHER NEEDS AT THIS TIME.
--- NOTE | 2020-03-24 08:29 | NUR ---
RESPONDED TO PT CALL LIGHT. PT REPORTS ABD PAIN THAT IS RADIATING INTO BACK. SHE REPORTS PAIN IS 7.5/10. PRN PAIN MEDICATION ADMINISTERED. PT DENIES ANY FURTHER NEEDS AT THIS TIME.
--- NOTE | 2020-03-24 10:00 | NUR ---
PATIENT SLEEPING. WILL CHECK BACK LATER.
--- NOTE | 2020-03-24 10:00 | NUR ---
PASTORAL CARE IN WITH PT. PT PROVIDED A WARM BLANKET AT THIS TIME. CALL LIGHT WITHIN REACH. NO FURTHER NEEDS AT THIS TIME.
--- NOTE | 2020-03-24 10:50 | NUR ---
PT MOTHER UPDATED ON PT CONDITION. TELE DC'D PER MD ORDER. NO NEEDS AT THIS TIME
--- NOTE | 2020-03-24 11:30 | NUR ---
IN ROOM FOR ASSESSMENT. PT DENIES PAIN BUT STATES SHE IS FEELING NAUSEATED, PRM MEDICATION GIVEN (SEE EMAR). LUNGS SOUNDS DIMINISHED IN R BASE, BUT CLEAR IN UPPERS. HR 70'S, RR12-16, DENIES SHORTNESS OF BREATH OR RESPIRATORY DISCOMFORT. PT DECLINES LUNCH AT THIS TIME DUE TO NAUSEA. CALL LIGHT WITHIN REACH. NO FURTHER NEEDS AT THIS TIME.
--- NOTE | 2020-03-24 11:44 | NUR ---
PT RESTING IN BED, RM DARKENED AND RV OFF. PT EASILY AWAKES TO MY VOICE. PT EXPRESSED GREAT APPRECIATION TO ER WHO DIAGNOSED HER PE. PT HAVING TROUBLE WITH NAUSEA. ATE BREAKFAST, BUT FOLLOWING HAD GREAT DISCOMFORT. PT IS A LITTLE FRUSTRATED BUT HOPEFUL. REQUESTED PRAYER, LEFT HER A G.POST.
[2020-03-24] MEDS ORDERED: BUPROPION HCL200 MG PO (12:42)
[2020-03-24] MEDS ORDERED: CYMBALTA30 MG PO (12:44)
[2020-03-24] MEDS ORDERED: CYMBALTA60 MG PO (12:45)
--- NOTE | 2020-03-24 12:53 | NUR ---
PT IN ROOM SLEEPING. BREATHING EVEN AND UNLABORED. RR=14. CALL LIGHT AND PERSONAL BELONGINGS WITHIN REACH. NO FURTHER NEEDS AT THIS TIME.
--- NOTE | 2020-03-24 13:58 | NUR ---
PT REPORT GIVEN TO FORTUNATO COYNE ON THE MEDICAL SURICAL FLOOR. PT TRANSPORTED BY BED, ALL BELONGINGS TRANSPORTED WITH PT.
[2020-03-24] MEDS ORDERED: PROMETHAZINE12.5 M1 PO (14:06)
[2020-03-24] MEDS ORDERED: FLUTICASONE PRO16 GM NAS (14:06)
--- NOTE | 2020-03-24 14:07 | NUR ---
MED REC COMPLETE
--- NOTE | 2020-03-24 14:21 | NUR ---
PT FROM CCU ORIENTED TO ROOM RESTING IN BED H20, JUICE, CRACKERS PROVIDED. CALL LIGHT IN HAND. PAIN MED ADMINISTERED PER REQUEST. PT DENIES FURTHER NEED STATES SHE WANTS TO REST SHADES PULLED DOWN PER REQUEST
--- NOTE | 2020-03-24 15:00 | NUR ---
SPOKE WITH PATIENT IN ROOM. PATIENT BURROWED DOWN IN BLANKETS, AWAKENED BY NURSING IN CCU SHE WAS BEING TRANSFERRED BY BED TO FLOOR. PATIENT STATES SHE STILL LIVES WITH PARENTS AND PLANS TO RETURN THERE. SHE DENIES NEEDING DME. SHE KEPT PULLING BLANKETS UP PAST FACE. WILL SEE AGAIN TOMORROW.
--- NOTE | 2020-03-24 15:53 | NUR ---
PT IS RESTING EYES CLOSED SNORING SOFTLY AWAKENED FOR MEDICATIONS DENIES DISCOMFORTS OR NEEDS OF.
--- NOTE | 2020-03-24 16:43 | EKG ---
[facility] [address] [place] [address] Signed Sinus tachycardia Possible Left atrial enlargement Borderline ECG No previous ECGs available Confirmed by MARCELINO PERRY MD ([id number] on 03/24/2020 4:43:05 PM Electronically Signed By: MARCELINO PERRY MD 03/24/20 1643 PATIENT NAME: BRODY LINCOLN Electrocardiogram DATE OF : [birth year] PHYSICIAN: MARCELINO PERRY MD REPORT #: [id number] REPORT IS CONFIDENTIAL AND NOT TO BE RELEASED WITHOUT AUTHORIZATION
--- NOTE | 2020-03-24 18:01 | NUR ---
PT SLEPT SOUNDLY FOR QUITE SOME TIME AFTER COMING FROM CCU. AWAKENS FOR EVENING MEAL REQUESTS PHENERGAN PRIOR TO EATING. AWAKE AT THIS TIME TALKING ON THE PHONE, DENIES FURTHER NEEDS
--- NOTE | 2020-03-24 18:06 | NUR ---
PATIENT SITTING UP IN BED EATING DINNER. CALL LIGHT IN REACH. NO FURTHER NEEDS AT THIS TIME.
--- NOTE | 2020-03-24 19:29 | NUR ---
SHIFT REPORT RECEIVED FROM RN AVIS, pt RESTING SAFELY IN BED WITH CALL LIGHT IN REACH, pt RATES PAIN 7/10, REQUESTING PRN PAIN MEDICATION.
--- NOTE | 2020-03-24 21:13 | NUR ---
pt ASSESSMENT, VS, AND I+O's COMPLETED, pt RATES PAIN 7/10, SCHEDULED PM AND PRN PAIN MEDS ADMINISTERED PER REQUEST/ORDER. pt IS INDEPENDENT IN ROOM AND USES CALL LIGHT APPROPIRATELY, DENIES ANY FURTHER NEEDS AT THIS TIME. pt's PAIN IS MAINLY IN HER ABDOMEN AND L LEG. LUNG SOUNDS CLEAR THROUGHOUT.
--- NOTE | 2020-03-24 23:31 | NUR ---
pt RESTING IN BED SAFELY WITH EYE CLOSED, RR EVEN AND UNLABORED, CALL LIGHT IN REACH.
--- NOTE | 2020-03-25 00:40 | NUR ---
CALL LIGHT ANSWERED pt VOMITING, PRN NAUSEA MED ADMINISTERED PER REQUEST/ORDER. NEW ICE WATER AND GRAPE JUICE GIVEN, HAT IN TOILET EMPTIED. pt RESTING SAFELY IN BED WITH CALL LIGHT IN REACH, DENIES FURTHER NEEDS AT THIS TIME.
--- NOTE | 2020-03-25 03:17 | NUR ---
pt IS RESTING SAFELY IN BED WITH EYES CLOSED, RR EVEN AND UNLABORED, CALL LIGHT IN REACH
--- NOTE | 2020-03-25 04:38 | NUR ---
CALL LIGHT ANSWERED, pt RATES PAIN 8/10 IN "STOMACH AND BLADDER", PRN PAIN MED ADMINISTERED PER REQUEST/ORDER. 2ND pt ASSESSMENT, VS, AND I+O's COMPLETE. NEW ICE WATER GIVEN PER REQUEST, pt RESTING SAFELY IN BED WITH CALL LIGHT IN REACH, DENIES FURTHER NEEDS AT THIS TIME. LUNG SOUNDS CLEAR THROUGHOUT, pt DENIES CHEST PAIN OR SOB.
--- NOTE | 2020-03-25 05:01 | NUR ---
pt RESTED THROUGHOUT THE NIGHT, PRN PAIN AND NAUSEA MEDS ADMINISTERED PER REQUST/ORDER, SCHEDULED MEDS AMDINISTERED PER ORDER,IVF INFUSING PER ORDER, PORT WNL WITH GOOD BLOOD RETURN. pt INDEPENDENT IN ROOM, USES CALL LIGHT APPROPRIATELY. LUNG SOUNDS CLEAR THROUGHOUT, DENIES CHEST PAIN OR SOB.
--- NOTE | 2020-03-25 06:42 | NUR ---
CALL LIGHT ANSWRERED, PRN NAUSE MED ADMINISTERED PER REQUEST/ORDER. pt SITTING UP IN BED SAFELY WITH CALL LIGHT IN REACH. DENIES FURTHER NEEDS AT THIS TIME.
--- NOTE | 2020-03-25 07:18 | NUR ---
PT APPEARS TO BE SLEEPING SOUNDLY AT TIME OF REPORT, LEFT UNDISTURBED. CALL LIGHT IS IN REACH
--- NOTE | 2020-03-25 10:14 | NUR ---
PT CONTINUES RESTING IN BED, ORDERS FOOD ITEMS FOR BREAKFAST. STATES SHE WILL JUST PICK AT IT SHE IS ABLE TO TOLERATE IT. HAD EMESIS LAST SHIFT NONE THIS SHIFT HAS NOT C/O NAUSEA
--- NOTE | 2020-03-25 10:47 | NUR ---
PATIENT IN BED WATCHING TV. SET UP BATHROOM FOR SHOWER, PATIENT IND IN ROOM AND SAID SHE WOULD TAKE SHOWER RIGHT BEFORE LUNCH. FRESH WATER GIVEN. CALL LIGHT IN REACH. NO FURTHER NEEDS AT THIS TIME.
--- NOTE | 2020-03-25 11:16 | NUR ---
PT IS ALERT, ORIENTED AND WATCHING TV IN BED. PT SEEMS THOUGH SHE IS FEELING BETTER. PT STATED SHE WAS ABLE TO EAT SOME BREAKFAST AND IT STAYED DOWN. FEELING MORE HOPEFUL, ANXIOUS TO TRY LUNCH. GAVE ENCOURAGEMENT, AND ALSO A BLESSING. PT THANKED ME FOR COMING BY
--- NOTE | 2020-03-25 12:10 | NUR ---
IV TAKEN OUT UPON RN REQUEST. CATH INTACT AND LOOKED GOOD, RN NOTIFIED. PATIENT UP TO SHOWER AND BACK TO BED, IND. CALL LIGHT IN REACH. NO FURTHER NEEDS AT THIS TIME.
--- NOTE | 2020-03-25 13:01 | NUR ---
administered phenegren per pt request. hooked back up to ivf using port. phen on secondary line. blood return obtained upon pt laying flat.
--- NOTE | 2020-03-25 13:33 | NUR ---
PT RESTING IN BED EYES CLOSED. SHE HAS TOLERATED FOOD THIS SHIFT NO EMESIS CONTINUES WITH ANTIEMETIC MEDICATIONS AT REGULAR INTRVALS
--- NOTE | 2020-03-25 14:22 | NUR ---
PATIENT IN BED RESTING. FRESH WATER GIVEN. CALL LIGHT IN REACH. NO FURTHER NEEDS AT THIS TIME.
--- NOTE | 2020-03-25 18:37 | NUR ---
PT RESTING IN BED TOLERATES EVENING MEAL HAS NOT C/O NAUSEA OR PAIN
--- NOTE | 2020-03-25 20:10 | NUR ---
Awake, watching tv, c/o 8/10 abd area pain, and feeling nauseated. Medicated with Dilaudid 0.5mg IV and Zofran 4mg IV. R portacath patent. fluids at bedside
--- NOTE | 2020-03-25 21:37 | NUR ---
c/o still feeling nauseated, medicated with phenergan, ac.o 05/23 abd pain, medicated with oxycodone 10
--- NOTE | 2020-03-26 01:50 | NUR ---
HANDOFF REPORT RECEIVED FROM RN WILLY, ASSUMED CARE OF pt.
--- NOTE | 2020-03-26 02:29 | NUR ---
CHECKED ON pt. RESTING IN BED ON RIGHT SIDE. BREATHING EQUAL AND UNLABORED. LIGHTS OFF IN ROOM.
--- NOTE | 2020-03-26 03:20 | NUR ---
CALL LIGHT ANSWERED. pt C/O 06/23 ABDOMINAL PAIN, NAUSEA. PRN MEDICATIONS ADMINSITERED. ASSESSMENT COMPLETE. BOWEL TONES ACTIVE X4, TENDER EPIGASTRIC AREA, ABD SOFT. URINE HAT EMPTIED. PORT WITH GOOD BLOOD RETURN, SL. CALL LIGHT IN REACH.
--- NOTE | 2020-03-26 03:48 | NUR ---
CALL LIGHT ANSWERED. ICE WATER AND JUICE PROVIDED REQUESTED. NO ADDITIONAL REQUESTS. CALL LIGHT IN REACH.
--- NOTE | 2020-03-26 05:47 | NUR ---
pt RESTED WELL THIS SHIFT. PRN NAUSEA AND PAIN MEDICATIONS ADMINSITERED. NO EMESIS. BOWEL TONES ACTIVE. LUNG SOUNDS CLEAR THROUGHOUT, NO SOB. INDEPENDENT IN ROOM. VOIDING QS.
--- NOTE | 2020-03-26 07:00 | NUR ---
IN pt ROOM FOR SCHEDULED MEDICATION ADMINISTRATION. VSS. pt RATES PAIN 8/10 IN LLE, PRN MEDICATION ADMINISTERED. CALL LIGHT IN REACH.
--- NOTE | 2020-03-26 07:17 | NUR ---
PHONE CALL TO TRIXIE HERRERA FOR pt TO USE HOME PAIN MEDICATION PATCH, REPEATED ORDERS BACK. FAX TO PHARMACY.
--- NOTE | 2020-03-26 07:28 | NUR ---
REPORT RECIEVED FROM FORTUNATO RIVERA.
--- NOTE | 2020-03-26 07:57 | NUR ---
MORNING ASSESSMENT DONE. LUNGS ARE CLEAR, BOWEL TONES ARE ACTIVE. PATIENT REPORTS 7/10 CHRONIC ABD/LEFT FOOT PAIN, DENIES NEED FOR NAUSEA MEDICATIONS. PATIENT DOES ENDORSE WANTING TO TAKE MIRALAX BID INSTEAD OF ONCE DAILY. PATIENT IS SITTING UP IN BED AND ORDERED BREAKFAST. RIGHT CHEST PORT FLUSHED WITH 20CC OF NORMAL SALINE, HAS GOOD BLOOD RETURN IF PATIENT IS IN FLAT POSITION. PATIENT DENIES OTHER NEEDS AT THIS TIME, IS AD ANA M IN ROOM AND STABLE ON FEET.
--- NOTE | 2020-03-26 08:03 | NUR ---
PATIENT RESTING IN BED. RN IN ROOM. PATIENT REFUSED TO TAKE A SHOWER TODAY BECAUSE SHE TOOK A SHOWER YESTERDAY. CALL LIGHT WITHIN REACH. NO OTHER NEEDS AT THIS TIME
--- NOTE | 2020-03-26 09:18 | NUR ---
MORNING MEDICATIONS GIVEN. PATIENT NAUSEATED, VOMITED 200ML. PATIENT GIVEN 25MG OF IV PHENERGAN. PATIENT REPORTS ABD PAIN 6/10 AND DOES NOT WANT PAIN MEDICATION AT THIS TIME. PATIENT REPORTS 7/10 LEFT LEG PAIN.
--- NOTE | 2020-03-26 09:40 | NUR ---
Pt. sleeping, not awakened.
--- NOTE | 2020-03-26 10:42 | NUR ---
PATIENT SLEEPING. VITAL SIGNS DONE BY RN. I&O DONE. CALL LIGHT WITHIN REACH. NO OTHER NEEDS AT THIS TIME
--- NOTE | 2020-03-26 11:14 | NUR ---
PATIENT IS SLEEPING WITH REGULAR RESPIRATIONS.
--- NOTE | 2020-03-26 12:52 | NUR ---
PT LAYING IN BED IN DARKENED RM WITH BLINDERS OVER EYES. PT AWAKENS EASILY TO MY VOICE.PT SAID SHE HAD A ROUGH AM-ATE BREAKFAST AND HAD SOME STOMACH ISSUES SINCE. PT REQUESTED PRAYER,DEALING WITH MILD DISAPPOINTMENT. WILL CONTINUE TO FOLLOW
--- NOTE | 2020-03-26 12:54 | NUR ---
PATIENT GIVEN 10MG OF OXYCODONE FOR 7/10 ABD/LEFT FOOT PAIN. PATIENT GIVEN 4MG OF IV ZOFRAN TO PREVENT NAUSEA WITH ORAL MEDICATIONS. PATIENT IS RESTING IN BED AND WATCHING TV.
--- NOTE | 2020-03-26 13:12 | NUR ---
PATIENT RESTING IN BED. VITAL SIGNS AND I&O DONE. GRAPE JUICE AND CRACKERS GIVEN. CALL LIGHT WITHIN REACH. NO OTHER NEEDS AT THIS TIME
--- NOTE | 2020-03-26 15:16 | NUR ---
PATIENT UP TO AMBULATE SEVERAL LAPS IN THE HALLWAY. IV PHENERGAN GIVEN FOR NAUSEA. P.O. SCHEDULED MEDICATIONS GIVEN. PATIENT RATES ABD PAIN 7/10 AND PLANS TO REST IN ROOM FOR A BIT.
--- NOTE | 2020-03-26 15:57 | NUR ---
PATIENT SLEEPING WITH REGULAR RESPIRATIONS.
--- NOTE | 2020-03-26 17:48 | NUR ---
PATIENT SITTING UP IN BED, EATING DINNER, ICE WATER REFILLED, VITALS DONE. CALL LIGHT IN REACH, NO OTHER NEEDS AT THIS TIME.
--- NOTE | 2020-03-26 18:18 | NUR ---
PATIENT RESTING IN BED. I&O DONE. CALL LIGHT WITHIN REACH. NO OTHER NEEDS AT THIS TIME
--- NOTE | 2020-03-26 18:22 | NUR ---
PATIENT HAS DONE BETTER TODAY, TOLERATING FOOD, GETTING UP TO AMBULATE IN THE HALLWAY. PATIENT HAS BEEN COMFORTABLE ON PO PAIN MEDICATIONS, CONTINUES TO REQUEST IV NAUSEA MEDICATIONS.
--- NOTE | 2020-03-26 19:30 | NUR ---
SHIFT REPORT RECEIVED FROM FORTUNATO GANDARA, pt RESTING IN BED WITH EYES CLOSED, RR EVEN AND UNLABORED, CALL LIGHT IN REACH.
--- NOTE | 2020-03-26 21:32 | NUR ---
pt ASSESSMENT, VS, I+O's COMPLETE. SCHEDULED PM AND PRN PAIN AND NAUSEA MEDS ADMINISTERED PER REQUEST/ORDER. pt RATES PAIN 8/10 IN HER ABD AND L FOOT, LUNG SOUNDS CLEAR THROUGHOUT, DENIES SOB OR CHEST PAIN. pt RESTING IN BED SAFELY WITH CALL LIGHT IN REACH. NEW ICE WATER, GRAPE JUICE, AND CRACKERS GIVEN PER REQUEST. DENIES ANY FURTHER NEEDS AT THIS TIME.
--- NOTE | 2020-03-26 23:00 | NUR ---
pt IS RESTING IN BED SAFELY WITH EYES CLOSED, RR EVEN AND UNLABORED, CALL LIGHT IN REACH.
--- NOTE | 2020-03-27 01:14 | NUR ---
pt IS RESTING IN BED SAFELY WITH EYES CLOSED, RR EVEN AND UNLABORED, CALL LIGHT IN REACH.
--- NOTE | 2020-03-27 03:23 | NUR ---
pt IS RESTING IN BED SAFELY WITH EYES CLOSED, RR EVEN AND UNLABORED, CALL LIGHT IN REACH.
--- NOTE | 2020-03-27 04:57 | NUR ---
CALL LIGHT ANSWERED, pt RATES PAIN 7/10 IN ABD AND L FOOT/ANKLE. SCHEDULED AM MED AND PRN PAIN MED ADMINISTERED PER REQUEST/ORDER. 2ND pt ASSESSMENT, VS, I+O's COMPLETE. NEW ICE WATER, GRAPE JUICE, AND CRACKERS GIVEN PER REQUEST. pt RESTING SAFELY IN BED WITH CALL LIGHT IN REACH, DENIES FURTHER NEEDS AT THIS TIME.
--- NOTE | 2020-03-27 05:06 | NUR ---
pt RESTED WELL THROUGHOUT THE NIGHT, PAIN AND NAUSEA WELL CONTROLLED WITH PRN MEDICATION. LUNG SOUNDS CLEAR THROUGHOUT, BOWEL TONES ACTIVE AND APPETITE IMPROVED, TOLERATING REGULAR DIET WELL. NO EMESIS, VOIDING QUANTITY SUFFICIENT. INDPENDENT IN ROOM, USES CALL LIGHT IN ROOM.
--- NOTE | 2020-03-27 07:14 | NUR ---
REPORT RECEIVED FROM WAN, BODY DESIGNER AND FORTUNATO RIVERA. PT RESTING IN BED ON RIGHT SIDE WITH EYES CLOSED. RESPIRATIONS EVEN AND UNLABORED. BED RAILS UP. CALL LIGHT WITHIN REACH. PT ALLOWED TO REST.
--- NOTE | 2020-03-27 08:54 | NUR ---
MORNING ASSESSMENT AND MEDICATION DUE. PT RESTING IN BED. ROOM DARK. PT ENCOURAGED TO GET UP TO CHAIR AND OPEN SHADES. PT REFUESES. ASSESSMENT DONE. LUNG SOUNDS CLEAR. PT REPORTS 7/10 PAIN IN LLE AND ABDOMEN. PT REPORTS NAUSEA AND REQUESTS MEDICAITON. SEE MAR FOR MEDICATION GIVEN. PT ANXIOUS TO EAT BREAKFAST. PT AGREES TO SIT AT EDGE OF BED FOR BREAKFAST, EDUCATION DONE REGARDING MOBILITY AND ACTIVITY. PT VERBALIZES UNDERSTANDING. PT REPORTS SHE DOES NOT FEEL READY TO GO HOME YET AND IS CONCERNED ABOUT DISCHRAGE PLAN. BOWEL TONES HEARD, NO BOWEL MOVEMENT YET "FOR SEVERAL DAYS." NO ADDIITONAL REQUESTS OR COMPLAINTS. CALL LIGHT WITHIN REACH.
--- NOTE | 2020-03-27 09:11 | NUR ---
PT UP TO AMBULATE IN [place] x2 laps, INDEPENDANT AND STEADY ON FEET. PT DENIES ADDITIONAL REQUESTS OR COMPLAINTS AT THIS TIME. CALL LIGHT WITHIN REACH.
--- NOTE | 2020-03-27 09:30 | NUR ---
In and spoke with Tracie briefly. She is wanting to sleep between medication times. Denies needs for discharge when cleared by States she cont. with nausea.
--- NOTE | 2020-03-27 09:58 | NUR ---
THIS RN TO ROOM TO CHECK ON PT. PT REPORTS PAIN AND NAUSEA ARE UNCHANGED. PT DENIES NEED FOR MEDICAITON AT THIS TIME AND STATES "I'LL JUST SLEEP IT OFF." VITALS TAKEN. I/Os RECORDED. NAP TIME SIGN PLACED ON DOOR. NO ADDIITONAL REQUESTS OR COMPLAINTS AT THIS TIME. CALL LIGHT WITHIN REACH.
--- NOTE | 2020-03-27 11:51 | NUR ---
MET WITH PT SHE WAS AMBULATING IN [place]. PT SEEMED TO ENJOY COMPANY I WALKED WITH HER. PT KEPT STEADY PACE, DID GET WINDED SLIGHTLY AT ONE POINT AND BRIEFLY STOPPED JUST FOR A MOMENT. PT DECIDED SHE SHOULD HEAD BACK TO HER RM.PT SAID SHE IS NOT QUITE READY FOR DC YET-DID HAVE BREAKFAST BUT IS COMPLAINING OF STOMACH DISCOMFORT. PT DID ALSO AY THAT SHE SLEPT WELL LAST NIGHT AND THAT SEEMED TO BE POSITIVE FOR HER.
--- NOTE | 2020-03-27 12:02 | NUR ---
NOON ASSESSMENT DUE. PT UP FOR SHOWER, INDEPENDANT WITH SHOWER, PORT A CATH AND BUPENORPHIN PATCH COVERED FOR SHOWER. LINENS CHANGED. PT UP TO AMBULATE X2 LAPS IN [place]. PT UP TO CHAIR AND THEN BACK TO BED. PT REPORTS 6/10 PAIN AND NAUSEA AND REQUESTS PHENEGRAN BUT STATES SHE WOULD LIKE TO WAIT FOR PAIN MEDIAITON. PT STATES PHENEGRAN HELPS WITH THE PAIN. PORT ASSESSED, BRISK BLOOD RETURN NOTED. PHENEGRAN GIVEN. BOWEL TONES REMAIN HYPOACTIVE. PT REQUESTS AND ADDITIONAL MIRALAX FOR THIS AFTEROON WELL HER EVENING DOSE. WILL CONSULT MD. PT ELLA IN BED. STATES SHE WILL EAT LUNCH AFTER RESTING FOR A BIT NO ADDITIONALR EQUESTS OR COMPLAINTS AT THIS TIME. CALL LIGHT WITHIN REACH.
--- NOTE | 2020-03-27 13:39 | NUR ---
[facility] PT REPORTS 6/10 PAIN AND DENIES NEED FOR PAIN MEDICAITON. PT REPORTS NAUSEA HAS RESOLVED. PT UP IN ROOM AND EATING LUNCH. NO ADDITIONAL REQUESTS OR COMPLAINTS AT THIS TIME. CALL LIGHT WITHIN REACH.
--- NOTE | 2020-03-27 14:41 | NUR ---
PT CALL LIGHT ON. PT REQUESTS PAIN MEDIATION FOR 05/23 PAIN. SEE MAR FOR MEDIATION GIVEN. PT WATCHING TV. NO ADDIITONAL REQUESTS OR COMPLAINTS AT THIS TIME. CALL LIGHT WITHIN REACH.
--- NOTE | 2020-03-27 16:37 | NUR ---
AFTERNOON ASSESSMENT DUE. PT RESTING IN BED AND STATES AFTER NAPING HER PAIN AND NAUSEA HAVE IMPROVED. PT DENIES NAUSA AND REPORTS 6/10 TOLERABLE PAIN. PT DENIES NEED FOR PAIN MEDIATION. BOWEL TONES CONTINUE TO BE HYPOATIVE. PT REPORTS SHE FEELS LIKE A BOWEL MOVEMENT MIGHT BE COMING. LEFT LEG/FOOT CONTINUES TO BE REACTIVE WITH PAIN/TOUCH. PT DENIES SOB. AMBULATION ENCOURAGED. PT DECLINES AT THIS TIME. PT REPORTS SHE HAS JUST FINISHED HER LUNCH. NO ADDITIONAL REQUESTS OR COMPLAINTS AT THIS TIME. CALL LIGHT WITHIN REACH.
--- NOTE | 2020-03-27 17:30 | NUR ---
PT HERE FOR BILATERAL P.E. PT UP TO AMBULATE THIS SHIFT. INDEPENDANT IN ROOM, WITH SHOWER, AND WITH AMBULATION. PT TOLERATING REGULAR DIET BUT REPORTS [place] INTERMITTANTLY, PRN MEDICATION GIVEN. NO BOWEL MOVEMENT THIS SHIFT, MIRALAX DOES INCREASED. PT REPORTS 6-8/10 PAIN, PRN MEDICATION GIVEN. PORT A CATH SHOWS BRISK BLOOD RETURN. SALINE LOCKED FOR MOST OF THIS SHIFT. ANTICIPATING DISCHRAGE SOON. PT VOIDING QUANTITY SUFFICIENT. PT USES CALL LIGHT APPROPRIATLY.
--- NOTE | 2020-03-27 18:08 | NUR ---
PT CALL LIGHT ON. PT REQUESTS NAUSEA AND PAIN MEDICAITON. PT REPORTS SHE WAS ABLE TO EAT "A FEW BITES" OF DINNER BUT IT MADE THE PAIN AND NAUSEA WORSE. SEE MAR FOR MEDICATION GIVEN. PT WORKIGN ON PHONE AND WATCHING TV. WATER REFILLED. NO ADDITIONAL REQUESTS OR COMPLAINTS AT THIS TIME. CALL LIGHT WITHIN REACH.
--- NOTE | 2020-03-27 19:35 | NUR ---
SHIFT REPORT RECEIVED FROM DAYSHIFT FORTUNATO ASHLEY AT BEDSIDE. PT AWAKE AND RESTING IN BED WHILE WATCHING TELEVISION. PORT DRESSING TO RIGHT CHEST INTACT, SALINE LOCKED PER FORTUNATO ASHLEY. NOT USING HEPARIN AT THIS TIME DUE TO FREQUENT USE OF PORT AND TO AVOID HIT. NO FURTHER NEEDS VERBALIZED, CALL LIGHT IN REACH.
--- NOTE | 2020-03-27 21:25 | NUR ---
CALL LIGHT ON, pt REQUESTED ICE WATER AND JUICE PROVIDED. NO FURTHER REQUESTS AT THIS TIME. CALL LIGHT WITHIN REACH.
--- NOTE | 2020-03-27 22:08 | NUR ---
VITALS AND I&OS DONE AND CHARTED. PER PT REQUEST RAJNI SANTOYO GIVEN. BEDSIDE TABLE AND CALL LIGHT IN REACH.
--- NOTE | 2020-03-27 22:13 | NUR ---
ASSESSMENT COMPLETE, SCHEDULED MEDS GIVEN ALONG WITH PRN OXYCODONE (SEE EMAR). PT RESTING IN BED, VSS. HR TACHY AT 110, PT STATES THIS IS BASELINE DUE TO "POSSIBLE AUTOIMMUNE DISORDER", WILL MONITOR. PT DENIES CHEST PAIN AND DYSPNEA. BLOOD RETURN EASILY NOTED TO RIGHT CHEST PORT, SALINE LOCKED. DRESSING INTACT. PT INTERACTIVE WITH NURSING STAFF AND COMPLIANT WITH CARE, CALL LIGHT IN REACH. NO FURTHER NEEDS VERBALIZED.
--- NOTE | 2020-03-27 23:29 | NUR ---
PT AWAKE ON HER PHONE, DENIES NEEDS. CALL LIGHT IN REACH.
--- NOTE | 2020-03-28 00:48 | NUR ---
PT ASKING FOR PRN PHENERGEN, THIS RN IN ROOM TO ADMINISTER. UNABLE TO FLUSH OR PULL BACK BLOOD, GYMNASTICS PERFORMED, UNSUCCESSFUL. TRANSMITTER SUPERVISOR DUNG IN ROOM TO ASSESS, STILL UNABLE TO RETURN BLOOD OR FLUSH. GREY PEACOCK RN IN ROOM, AFTER REPOSITIONING PT AND PORT, SITE FLUSHED AND BLOOD RETURN WAS NOTED. PRN NAUSEA MEDICATION GIVEN (SEE EMAR). NO FURTHER NEEDS, CALL LIGHT IN REACH.
--- NOTE | 2020-03-28 01:15 | NUR ---
PHENERGEN COMPLETE, BRISK BLOOD RETURN NOTED WHEN PT IS IN FLAT POSITION. PULSATILE FLUSHED WITH 20MLS NORMAL SALINE, CLAVE ALSO REPLACED. DRESSING INTACT. PT REPORTED SWELLING THE SIZE OF A "PEACH PIT" TO RIGHT NECK. NO SWELLING NOTED BY RN, SLIGHT TENDERNESS TO THE TOUCH. PT STATES, "OH YEAH IT'S GONE DOWN, IT WAS RIGHT AT THE END OF THE MED. IT HAPPENED TO ME ONE OTHER TIME AND I THINK THEY FLUSHED IT WITH FLUIDS". PT DENIES SOB, DYSPNEA, O2 SAT IN MID 90'S ON RA, HR 108. WILL MONITOR, NO OTHER NEEDS VERBALIZED. CALL LIGHT IN REACH.
--- NOTE | 2020-03-28 03:15 | NUR ---
PT RESTING IN BED WITH EYES CLOSED, APPEARS RELAXED AT THIS TIME. NO DISTRESS NOTED, RESPIRATIONS EVEN AND UNLABORED. CALL LIGHT IN REACH.
--- NOTE | 2020-03-28 04:20 | NUR ---
PT AWAKE AND RESTING IN BED, DENIES NEEDS. CALL LIGHT IN REACH.
--- NOTE | 2020-03-28 05:23 | NUR ---
VS and I&Os complete. pt given fresh ice water, nothing further needed at this time.
--- NOTE | 2020-03-28 05:27 | NUR ---
ASSESSMENT COMPLETE, NO NEW CHANGES OR CONCERNS. PT DROWSY, AWAKENS TO VOICE. VSS, PT ON RA. LUNG SOUNDS CLEAR, PT DENIES SOB AND DYSPNEA. DENIES NEED FOR PAIN MEDICATION, ALSO DENIES NAUSEA AT THIS TIME. WILL MONITOR. PORT DRESSING TO RIGHT CHEST INTACT, BLOOD RETURN NOTED WHEN IN FLAT POSITION. SALINE LOCKED. NO ADDITIONAL NEEDS VERBALIZED, CALL LIGHT IN REACH.
--- NOTE | 2020-03-28 05:30 | NUR ---
PT HAD A GOOD NIGHT, VSS. INDEPENDENT IN ROOM CALLS APPROPERIATELY. HAD DIFFICULTY WITH BLOOD RETURN BEFORE PHENERGEN ADMINISTRATION, POSITIONAL AND RESOLVED. NAUSEA CONTROLLED WITH PHENERGEN AND PAIN CONTROLLED WITH SCHEDULED AND PRN PAIN MEDICATIONS. REGULAR DIET, PT HAD 2BM'S THIS SHIFT. VOIDING QS.
--- NOTE | 2020-03-28 07:07 | NUR ---
REPORT RECEIVED FROM FORTUNATO STEIN. PT RESTING IN BED. PT UP TO VOID, INDEPENDANT IN ROOM. PT REPORTS "THE PAIN ISN'T BAD, I'M STILL SLEEPY SO I JUST WANT TO KEEP RESTING." PT ALLOWED TO REST. CALL LIGHT WITHIN REACH. PT REPORTS BOWEL MOVEMENTS X2 LAST NIGHT.
--- NOTE | 2020-03-28 08:34 | NUR ---
MORNING ASSESSMENT AND MEDICATION DUE. PT CALL LIGHT ON. PT REPORTS NAUSEA AND 8/10 PAIN. PT STATES SHE HAD ONE SMALL EPIODE OF EMESIS LAST NIGHT BUT "I WAS TOO EMBARISED TO CALL THE NURSES." PT STATES SHE WASHED THE EMESIS DOWN THE BATHROOM DRAIN. PT DENIES EMESIS THIS MORNING. PT REPROTS 8/10 PAIN IN ABDOMEN AND LEFT FOOT. SEE MAR FOR MEDICATION GIVEN. PT STATES SHE FEELS THAT SHE CONTINUES TO BE "IN A FLARE" OF HER CHRONIC CONDITIONS STATING IT USUALLY TAKES 3-7 DAYS TO RECOVER FROM THESE FLARES. PT REPORTS BOWEL MOVMENTS X2 LAST NIGHT WHICH "HELPED A LITTLE, I FEEL LESS BLOATED." LUNG SOUNDS CLEAR. PT DENIES SOB. PT PLAYING ON PHONE. NO ADDITIONAL REQUESTS OR COMPLAINTS AT THIS TIME. CALL LIGHT WITHIN REACH.
--- NOTE | 2020-03-28 09:30 | NUR ---
Notified by RN pt does not want to go home today. She has sign on door for no visitors. Will follow up on Tuesday if she is still here.
--- NOTE | 2020-03-28 09:45 | NUR ---
THIS RN TO ROOM WITH MD FOR ROUNDS. PT REORTS CONTINUED NAUSEA AND PAIN. PLAN MADE WITH PT FOR NAP, THEN SHOWER AND WALK WELL ADDITIONAL AMBULATION LATER THIS SHIFT. PT ENCORUAGED TO SPEND TIME OUT OF ROOM AND IN THE SUNLIGHT. PT AGREES TO AMBULATION X2 LATER THIS SHIFT. NAP TIME SIGN PLACED TO ALLOW PT TO REST. NO ADDIITONAL REQUESTS OR COMPLAINTS. VITALS TAKEN. I/Os RECORDED. CALL LIGHT WITHIN REACH.
--- NOTE | 2020-03-28 10:59 | NUR ---
FORTUNATO ASHLEY REQUESTED I NOT DISTURB PT AT THIS TIME. WILL CHECK BACK
--- NOTE | 2020-03-28 12:10 | NUR ---
NOON ASSESSMENT DUE. PT AWAKE FROM [place] AND REPORTS SHE IS "FEELING BETTER." PT REPORTS 7/10 PAIN AND NAUSEA, SEE MAR FOR MEDICATION GIVEN. PT UP TO SHOWER, INDEPENDANT WITH SHOWER. CURTAINS OPENED. ROOM CLEANED. ASSESSMENT DONE. LUNG SOUNDS CLEAR. BOWEL TONES HEARD. PT ENORUAGED TO AMBULATE. AMBULATES X2 LAPS IN ELIZONDO AND DOWN MAIN COTTON FACTOR HALLWAY. PT ENCOURAGED TO SPEND TIME UP TO CHAIR. PT UP IN CHAIR AT THIS TIME EATING LUNCH CALL LIGHT WITHIN REACH.
--- NOTE | 2020-03-28 13:12 | NUR ---
PT UP TO AMBULATE WITH MOTHER X1 LAP IN ELIZONDO. PT EATING LUNCH. NO ADDIITONAL REQUESTS OR COMPLAINTS AT THIS TIME. CALL LIGHT WITHIN REACH. PT REPORTS 6/10 PAIN.
--- NOTE | 2020-03-28 14:22 | NUR ---
PT UP TO AMBULATE X1 LAP IN ELIZONDO WITH SBA FROM THIS RN. PT BACK TO BED. PT REPORTS NAUSA AND REQUESTS PHENEGRAN. SEE MAR FOR MEDICATION GIVEN. PT REPORTS SHE WAS ABLE TO HAVE A BOWEL MOVEMENT. NO ADDITIONAL REQUESTS OR COMPLAINTS. CALL LIGHT WITHIN REACH.
--- NOTE | 2020-03-28 16:43 | NUR ---
AFTERNOON ASSESSMENT AND MEDICATIN DUE. PT WATCHING MOVIE ON COMPUTER AND VISITNG WITH MOTHER. PT REPORTS 7/10 PAIN AND REQUESTS PAIN MEDICATION. PT REPORTS THE NAUSE IS "WAY, WAY BETTER BUT STILL THERE." PT DECLINE NAUSEA MEDICATION AT THIS TIME. LUNGS SOUNDS CLEAR. BOWEL TONES HEARD. WATER AND JUICE REFILLED. PT HAS CLOSED SHUTTERS AND REFUESES THAT THEY BE OPENED AGAIN. NO ADDITIONAL REQUESTS OR COMPLAINTS. CALL LIGHT WITHIN REACH.
--- NOTE | 2020-03-28 17:41 | NUR ---
PT ADMITEED FOR PULMONARY EMBOLISM, NO STRUGGLING WITH CHRONIC NAUSEA AND PAIN. PT INDEPENDANT IN ROOM AND TOLERTING REGULAR DIET WITH MODERATE APPITITE. PRN PHENEGRAN AND OXYCODONE GIVEN PER PT REQUEST FOR NAUSEA AND PAIN. PT UP TO SHOWER THIS SHIFT AND AMBULATION IN ELIZONDO X3. ENCOURAGING BLINDS BE OPENED AND PT EXPOSURE TO SUNLIGHT. PORT A CATH WNL, SALINE LOCKED WITH BRISK BLOOD RETURN NOTED. ANTICIPATING DISCHARGE TOMORROW. PT VOIDING QUANTITY SUFFICIENT. BOWEL MOVEMENT THIS SHIFT. PT USES CALL LIGHT APPROPRIATLY.
--- NOTE | 2020-03-28 18:02 | NUR ---
THIS RN TO ROOM TO CHECK ON PT. PT WATCHING MOVIE ON COMPUTER. PT REPORTS 6/10 PAIN AND DENIES NEED FOR ADDIITONAL PAIN MEDICATION AT THIS TIME. NO ADDITIONAL REQUESTS OR COMPLAINTS AT THIS TIME. CALL LIGHT WITHIN REACH.
--- NOTE | 2020-03-28 19:22 | NUR ---
PT CALLED REQUESTING PAIN MEDS AND NAUSEA MEDS. EXPLAINED THAT IT IS TOO EARLY AND SHE JUST ASKED THAT SHE RECEIVE THEM WHEN THEY ARE DUE. WILL NOTIFY HER PRIMARY RN. SHE DENIES FURTHER NEEDS AT THIS TIME. CALL LIGHT IS CLOSE.
--- NOTE | 2020-03-28 19:25 | NUR ---
SHIFT REPORT RECEIVED FROM GLENN ASHLEY AT BEDSIDE. PT RESTING IN BED AND WATCHING TELEVISION ON HER COMPUTER. RR EVEN AND UNLABORED, NO DISTRESS NOTED. CALL LIGHT IN REACH.
--- NOTE | 2020-03-28 20:30 | NUR ---
ASSESSMENT COMPLETE, SCHEDULED PO MEDS GIVEN (SEE EMAR). PT DENIES PAIN, A/OX4. VSS, HR TACHY, WILL MONITOR. DENIES CHEST PAIN AND SOB. PORT DRESSING INTACT. PT DENIES ADDITIONAL NEEDS, CALL LIGHT IN REACH.
--- NOTE | 2020-03-28 20:45 | NUR ---
THIS RN UNABLE TO OBTAIN BLOOD RETURN TO PORT. GYMNASTICS ATTEMPTED, BUT UNSUCESSFUL. FLUSHES EASILY, DRESSING INTACT. PT REPORTS SCANT PAIN WHEN FLUSHED, NO EDEMA NOTED. SITE WNL.WILL HAVE HEADING AND PRIMING OPERATOR COME AND ASSESS FOR SECOND OPINION.
--- NOTE | 2020-03-28 21:00 | NUR ---
PRIMARY RN HAVING TROUBLE OBTAINING BLOOD RETURN VIA PORT. ATTEMPTED FLUSHING AND HAD PT TRY MANY POSITION CHANGES AND HAD NO LUCK WITH BLOOD RETURN. RN CRACKING STILL OPERATOR IS IN THE ROOM AT THIS TIME TRYING.
--- NOTE | 2020-03-28 21:45 | NUR ---
THIS RN ON PHONE WITH DR MIJARES REGARDING PORT PER POLICY REGARDING INABILITY TO OBTAIN BLOD RETURN, SITE CONTINUES TO FLUSH EASILY. PER DR DYLLAN MARCUM TO ADVANCE WITH ALTEPLASE ADMINISTRATION POLICY. TELEPHONE ORDER READ BACK FOR PO PHENERGEN 25MG Q6H PRN FOR NAUSEA PORT IS CURRENTLY UNUSABLE AND THERE IS NO PERIPHERAL SITE. ALSO SPOKE WITH AYSHA FROM TELEPHARMACY PT HERE FOR DIAGNOSIS OF PE. PER SULAIMAN MARCUM TO ADMINISTER ALTEPLASE THIS IS SMALL DOSE AND BEING UTILIZED FOR PORT BLOOD RETURN. PT ALSO DENIES COMORBIDITES LISTED CONTRAINDICATION WITH INDIVIDUAL WITH PE. WILL MONITOR.
--- NOTE | 2020-03-28 23:00 | NUR ---
SUPERVISOR GROUNDS IN ROOM AND AGAIN ATTEMPTED TO GET BLOOD RETURN, BUT UNSUCCESSFUL. WAN STUDENT RN ALSO UNSUCCESSFUL, PREVIOUS HISTORY CARING FOR PT. GYMNASTICS UNSUCCESSFUL. DRESSING CHANGED BY THIS RN PER POLICY IN ATTEMPT TO GAIN BLOOD RETURN, ALSO UNSUCCESSFUL. FIRST DOSE ALTEPLASE ADMINISTERED PER POLICY AT THIS TIME. ORAL PHENERGEN OFFERED MULTIPLE TIMES BY ESCROW CLOSER, DECLINED BY PT. PT STATES, "THE ORAL KIND DOESN'T WORK, I'D RATHER WAIT UNTIL WE CAN GET AN IV IN". THREE UNSUCCESSFUL PERIPHERAL ATTEMPTS BY SUPERVISOR GROUNDS. THIS RN ALSO ASSESSED, BUT DID NOT SEE GOOD LOCATION. HILLARY VAZQUEZ RN NOTIFIED AND WILL ATTEMPT PLACEMENT.
--- NOTE | 2020-03-28 23:30 | NUR ---
BLOOD RETURN ATTEMPTED BY THIS RN, UNSUCCESSFUL. WILL CHECK AGAIN AT APPROX 0100.
--- NOTE | 2020-03-29 00:30 | NUR ---
HILLARY VAZQUEZ RN IN ROOM AND ABLE TO START NEW PERIPHERAL IV, 22 GAUZE. BLOOD RETURN NOTED, IV PHENERGEN INFUSING. ROOM TIDED, FRESH WATER PROVIDED. PRN PAIN PILL ALSO GIVEN (SEE EMAR). NO FURTHER NEEDS. CALL LIGHT IN REACH.
--- NOTE | 2020-03-29 00:56 | NUR ---
PHENERGEN COMPLETE, IV SITE FLUSHES EASILY. SALINE LOCKED. NO FURTHER NEEDS VERBALIZED, CALL LIGHT IN REACH.
--- NOTE | 2020-03-29 01:15 | NUR ---
2 HOURS AFTER ALTEPLASE ADMINISTRATION, STILL NO BLOOD RETURN. PER POLICY, SECOND DOSE ORDERED. AWAITING VERIFICATION THROUGH TELEPHARMACY ON EMAR.
--- NOTE | 2020-03-29 02:15 | NUR ---
HELPED PT TO THE SIDE OF THE BED TO HELP HIM WITH HIS URINAL. HELPED HIM BACK INTO BED. BEDSIDE TABLE AND CALL LIGHT IN REACH. HE NEEDS NOTHING MORE AT THIS TIME.
--- NOTE | 2020-03-29 02:19 | NUR ---
UNABLE TO FLUSH SECOND DOSE OF ALTEPLASE. STOREROOM CLERK ALSO UNSUCCESSFUL. PT IN ROOM, APPEARS COMFORTABLE, NO ADDITIOANL NEEDS VERBALIZED. CALL LIGHT IN REACH.
--- NOTE | 2020-03-29 03:00 | NUR ---
ASSESSMENT COMPLETE, NO NEW CHANGES. STILL UNABLE TO OBTAIN BLOOD RETURN. PORT TUBING LABELED NOT TO USE ALTEPLASE REMAINS IN LINE. LUNG SOUNDS CLEAR, PT DENIES SOB OR CHEST PAIN. APPEARS RELAXAED AT THIS TIME. CALL LIGHT IN REACH.
--- NOTE | 2020-03-29 03:19 | NUR ---
DR MIJARES MADE AWARE OF INABILITY TO OBTAIN BLOOD RETURN/FLUSH PORT AND 2MG ALTEPLASE REMAINS IN PORT-A-CATH. NO NEW ORDERS.
--- NOTE | 2020-03-29 03:36 | NUR ---
DR MIJARES CALLED SAYING TO SCHEDULE A PORT STUDY ON PT FOR FIRST THING IN THE MORNING, TORBC.
--- NOTE | 2020-03-29 05:41 | NUR ---
VITALS AND I&OS DONE AND CHARTED. GARBAGES EMPTIED, ROOM CLEANED UP. BEDSIDE TABLE AND CALL LIGHT IN REACH. PT NEEDS NOTHING AT THIS TIME.APPEARED TO BE SLEEPING SHE WAS SNORING BEFORE I WENT OUT OF THE ROOM.
--- NOTE | 2020-03-29 05:51 | NUR ---
SCHEDULED MED GIVEN (SEE EMAR). PT RESTING IN BED, UNABLE TO OBTAIN BLOOD RETURN FROM PORT. DO NOT USE LABEL REMAINS IN PLACE. DRESSING INTACT. PT DENIES PAIN AND NAUSEA. NO FURTHER NEEDS.
--- NOTE | 2020-03-29 05:52 | NUR ---
PT A/OX4, VSS. HR TACHY AT TIMES. UNABLE TO OBTAIN BLOOD RETURN FROM PORT, ALTEPLASE GIVEN X1. UNABLE TO FLUSH PORT TO ADMINISTER SECOND DOSE OF ALTEPLASE, MD AWARE. ALTEPLASE REMAINS IN LINE. PAIN CONTROLLED WITH PRN AND SCHEDULED PAIN MEDICATIONS, PHENERGEN GIVEN X1. VOIDING QS, INDEPENDENT IN ROOM.
--- NOTE | 2020-03-29 07:10 | NUR ---
REPORT RECEIVED FROM FORTUNATO STEIN. PT RESTING WITH EYES CLOSED. RESPIRATIONS EVEN AND UNLABORED. BED RAILS UP. CALL LIGHT WITHIN REACH. PT ALLOWED TO REST.
--- NOTE | 2020-03-29 09:49 | NUR ---
MORNING ASSESSMENT AND MEDICATION DUE. PT CALL LIGHT ON. PT REQUESTS PHENEGRAN AND PAIN MEDICATION FOR 710 PAIN. PORT ASSESSED, UNABLE TO FLUSH, PORT DEACCESSED PER PROTOCOL. PORT REACCESSED. BRISK BLOOD RETURN NOTED. MEDICATIONS GIVEN. PORT SALINE LOCKED AT THIS TIME WITH ALCOHOL CAP IN PLACED. IV DC'D PER PROTOCOL IT IS NO LONGER NEEDED. GAUZE AND COBAN APPLIED. ASSESSEMENT DONE BOWEL TONES HEARD. LUNG SOUND CLEAR. PT EATING BREAKFAST. NO ADDITIONAL REQUESTS OR COMPLAINS AT THIS TIME. CALL LIGHT WITHIN REACH. PT ANTICIPATING DISCHARGE TODAY. STATES HER RIDE CANNOT BE HERE UNTIL 1530.
--- NOTE | 2020-03-29 11:30 | NUR ---
THIS RN TO ROOM TO CHECK ON PT. PT RESTING ON RIGHT SIDE WITH EYES CLOSED, RR = 16, EVEN AND UNLABORED. CALL LIGHT WITHIN REACH. BED RAILS UP.
[2020-03-29] MEDS ORDERED: ELIQUIS5 MG PO (11:44)
--- NOTE | 2020-03-29 12:07 | NUR ---
NOON ASSESSMENT DUE. PT UP IN ROOM WASHING HANDS AND BRUSHING TEETH. PT EATING LUNCH. PT REPORTS NAUSEA AND 7/10 PAIN. PT STATES NAUSEA MEDICATION WILL HELP WITH THE PAIN. PT DENIES NEED FOR ADDITIONAL PAIN MEDICAITON. ASSESSMENT DONE. LUNG SOUNDS CLEAR. PAIN CONTINUES TO LEFT LOWER EXTREMITY. BOWEL TONES HEARD. EDUCATION DONE WITH PATIENT REGARDING DISCHRAGE. PT STATES SHE IS READY FOR DISCHARGE AND WILL BE SET TO GO HOME AT 1600. PT WATCHING TV SHOWS ON COMPUTER. NO ADDITIONAL REQUESTS OR COMPLAINTS AT THIS TIME. CALL LIGHT WITHIN REACH.
--- NOTE | 2020-03-29 13:13 | NUR ---
PATIENT SITTING UP IN BED. VITAL SIGNS AND I&O DONE. CALL LIGHT WITHIN REACH. NO OTHER NEEDS AT THIS TIME
--- NOTE | 2020-03-29 15:56 | NUR ---
PT READY FOR DISCHARGE. VITALS TAKEN. PTS HEART RATE REMAINS TACHYCARDIC. PT STATES THIS IS NORMAL FOR HER. PT REPORTS 7/10 PAIN, SEE MAR FOR MEDICAITON GIVEN. PT REQUESTS PHENEGRAN BEFORE SHE GOES HOME (SEE MAR FOR MEDICATION GIVEN). PORT ASSESSED, WNL. BRISK BLOOD RETURN NOTED. MEDICATION GIVEN. PORT FLUSHED AND HEPARIN LOCKED PER PROTOCOL. PORT DEACCESSED PER PROTOCOL. BANDAID DECLINED. DISCHARGE INSTRUCTIONS REVIWED WITH PT. PT VERBALIZES UNDERSTANDING OF FOLLOW UP, MEDICATION, AND DISCHARGE INSTRUCTIONS. PT DECLINES SPEAKING WITH PHARMACIST STATING SHE JUSTS WANTS TO GET GOING. PT WHEELED TO FRONT TO MEET MOTHER BY DIESEL DINKEY ENGINEER. NO ADDITIONAL REQUESTS OR CONCERNS.
== END 2020-03-29 16:05 | disposition home or self-care (01) | DRG 176 ==
LOC: ED 06:39 → CCU 15:02 → MS 15:02
PROVIDERS: ADMIT Internal Medicine
DX: I26.99 Other pulmonary embolism without acute cor pulmonale (principal); G90.522 Complex regional pain syndrome I of left lower limb; F11.20 Opioid dependence, uncomplicated; N30.10 Interstitial cystitis (chronic) without hematuria; R10.11 Right upper quadrant pain; R11.15 Cyclical vomiting syndrome unrelated to migraine; R74.0 Nonspecific elevation of levels of transaminase and lactic acid dehydrogenase [LDH]; F32.9 Major depressive disorder, single episode, unspecified; Z88.5 Allergy status to narcotic agent; Z97.5 Presence of (intrauterine) contraceptive device; Z79.899 Other long term (current) drug therapy; Z79.51 Long term (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
CPT/HCPCS: 71260; 80053; 81001; 82728; 83690; 83735; 84703; 85025; 85379; 86140; 93005; 93010; 93971; 94760; 96361; 96375; 99285-25; C9113; J1170; J1650; J1885; J2405; J2550; J2997; J7030; J7121; U0002

== ENCOUNTER 2020-05-26 19:14 | Emergency (ER) | payer MEDICARE, OTHER ==
[~2020-05-26] VITALS: Ht 165.1 cm; Wt 95.7 kg
--- OUTSIDE RECORDS SUMMARY | ~2020-05-26 | XMS | Encounter Summary ---
Demographics + + + | Address | [address] | | | [place] [address] | + + + | Home Phone [...] Author + + + | Author | [facility] | + + + | Organization | [facility] | + + + | Address | Unknown | + + + | Phone | Unavailable | + + + Support + + +---------+ + | Name | Relationship | Address | Phone | + + +---------+ + | Patricia Colin | ECON | Unknown | | + + +---------+ + Care Team Providers + +------+ + | Care Dehydration Unit Operator Name | Role | Phone | + +------+ + | Allegra Chaudhary | PCP | | + +------+ + Encounter Details +--------+ + + + + | Date | Type | Department | Care Team | Description | +--------+ + + + + | 01/09/ | Document-Sc | UNKNOWN DEPARTMENT | Unknown . | | | 2013 | anned | [id number] | | | | | | [address] | | | | | | [place], [place] | | | | | | [address] | | | +--------+ + + + [...] | + +--------+ + + + | RADIOLOGY | | 01/09/2014 | | Results for this | | | | 12:00 AM | | procedure are in the | | | | PST | | results section. | + +--------+ + + + documented in this encounter Results RADIOLOGY (01/09/2014 12:00 AM PST) + + + | Narrative | Performed At | + + + | | | + + + documented in this encounter Visit Diagnoses Not on filedocumented in this encounter"
--- OUTSIDE RECORDS SUMMARY | ~2020-05-26 | XMS | Encounter Summary ---
Demographics + + + | Address | [address] | | | [place] [address] | + + + | Home Phone [...] + + + | Author | [facility] | + + + | Organization | [facility] | + + + | Address | Unknown | + + + | Phone | Unavailable | + + + Support + + +---------+ + | Name | Relationship | Address | Phone | + + +---------+ + | Patricia Colin | ECON | Unknown | | + + +---------+ + Care Team Providers + +------+ + | Care Classroom Aide Name | Role | Phone | + +------+ + | Allegra Gandhi | PCP | | + +------+ + Reason for Visit + + + | Reason | Comments | + + + | Return Patient | | + + + | Leg Pain | | + + + | Foot pain | | + + + Consultation (Routine) +--------+--------+ + + + + | Status | Reason | Specialty | Diagnoses / | Referred By | Referred To | | | | | Procedures | Contact | Contact | +--------+--------+ + + + + | Closed | | Pain | Diagnoses | Gandhi, | Beulah, | | | | Management | Chronic | Allegra Nieto, | Dale Martinez MD | | | | | pain Reflex | [place] | [address] | | | | | sympathetic | [place] [address]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 | FAMILY | Mailstop | | | | | of lower | MEDICINE P | [address] | | | | | limb | [address] | [place], [place] | | | | | | [place], | [address] | | | | | | [place] [address] | Phone: | | | | | | Phone: | [phone] | | | | | | [phone] | Fax: | | | | | | Fax: | [phone] | | | | | | [phone] | | +--------+--------+ + + + + Encounter Details +--------+---------+ + + + | Date | Type | Department | Care Team | Description | +--------+---------+ + + + | 08/04/ | Office | [facility] | Dlae Cantu, | CRPS (complex | | 2011 | Visit | Pain Center at | MD 1956 [facility] | regional pain | | | | [facility] | [facility] [id number] | syndrome), lower | | | | [address] | [place], [place] | limb (Primary Dx) | | | | [place] for [facility] | [address] | | | | | and Healing, | [phone] | | | | | Building | | | | | | Floor [place], [place] | | | | | | [address] | | | | | | [phone] | | | +--------+---------+ + + + [...] + + + | Blood Pressure | 143/78 | 08/04/2012 1:51 PM | | | | | PDT | | + + + + + | Pulse | 120 | 08/04/2012 1:51 PM | | | | | PDT | | + + + + + | Temperature | 36.8 C (98.2 F) | 08/04/2012 1:51 PM | | | | | PDT | | + + + + + | Respiratory Rate | 16 | 08/04/2012 1:51 PM | | | | | PDT | | + + + + + | Oxygen Saturation | 93% | 08/04/2012 1:51 PM | | | | | PDT | | + + + + + | Inhaled Oxygen | - | - | | | Concentration | | | | + + + + + | Weight | 81.6 kg (180 lb) | 08/04/2012 1:51 PM | | | | | PDT | | + + + + + | Height | 165.1 cm (5' 5") | 08/04/2012 1:51 PM | | | | | PDT | | + + + + + | Body Mass Index | 29.95 | 08/04/2012 1:51 PM | | | | | PDT | | + + + + + documented in this encounter Patient Instructions Patient Instructions Dale Cantu MD - 08/04/2012 3:32 PM PDT1. No Hot tub or bath to day, OK to shower. 2. Come see me in a few weeks, we can discuss other options. I am sorry this was not a good treatment for you documented in this encounter Progress Notes Dale Cantu MD - 08/07/2012 3:12 PM PDTI saw and evaluated the patient with Fellow Nhan Guo [facility], who conducted the initial history. I reviewed the history in det ail and edited his note. I was present for the examination and formulation portions of the encounter. I agree with the findings and the plan of care as documented in our notes. DALE CANTU MD Gas Appliance Servicer Helper, [facility] Pharmaceutical Detailer, Pain Medicine Professor, Anesthesiology & Perioperative Medicine harline Salinas MA - 08/04/2012 1:53 PM PDTCMA History: 1. Has your pain changed from [...] JOINTS AND MUSCLES atrophy, cramps , joint pain, muscle pain, stiffness and swel ling 2. GASTROINTESTINAL SYSTEM nausea 3. GENITOURINARY SYSTEM negative 4. NERVOUS SYSTEM numbness and weakness 5. PSYCHIATRIC HISTORY sleep disturbance, decreased interest in previously enjoyable acti vities, guilt, decreased energy, concentration , decreased or increased appetite, suicidal o r homicidal ideation, anxiety, fear of physical activity and social withdrawal enok Gutierrez, [facility] - 08/04/2012 7:25 AM PDTFormatting of this note might be different from the origi nal. [facility] Return Visit with Dr. Dale Cantu 08/04/2012 Tracie Farah; ; : 1990 Chief Complaint Patient presents with Return Patient Leg Pain Foot pain History of Present Illness: Ms. Farah was last seen by Dr. Cantu on 08/02/2012. At that time, midline lumbar Spinal Cord Stimuation Trial was done She is here today for a follow up visit. She has been treated at the [facility] for lower limb pain with the following problem list: Patient Active Problem List Diagnoses Date Noted Pain in joint, lower leg 02/29/2012 Sleep disturbance, unspecified 02/29/2012 CRPS (complex regional pain syndrome), lower limb 02/14/2012 Overview Note: Left, injury 2001, multiple surgical procedures Gait disturbance 02/14/2012 Muscle pain 02/14/2012 Overview Note: Diffuse with fibromyalgia points positive Adjustment reaction 02/14/2012 Ms. Farah completed the Brief Pain Inventory and a pain drawing which I reviewed. [facility] Brief Pain Inventory: (ten= worst possible pain or complete interference) Right Now: 8 (08/04/12 1353) Least in 24 hours: 7 (08/04/12 135) Worst in 24 hours: 9 (08/04/12 135) Average: 8 (08/04/121352) % Relief (med/treat): 30 (08/04/12 135) General Activity: 10 (08/04/12 135) Mood: 6 (08/04/12 135) Walking Ability: 5 (08/04/121352) Normal Work: 7 (09/21/12 1353) Relations with Others: 6 (08/04/12 1353) Enjoyment of Life: 10 (08/04/12 1353) Sexual Activity: 0 (08/04/12 1353) Sleep: 7 (08/04/12 1353) The pain is located in the left leg and foot. - pain is not changed She reports no other change in past medical history, past surgical history, family history, or social history since last visit. Past Medical History Diagnosis Date Other chronic pain Reflex sympathetic dystrophy of the lower limb Depression Anxiety Compartment syndrome Peroneal nerve injury Neuroma of lower extremity Ankle fracture, left Past Surgical History Procedure Date Tonsillectomy and adenoidectomy Ankle surgery x 9 Fasciotomy Neurectomy foot Nerve block 03/18/11 & 03/25/11 Left lumbar sympathetic ganglion block Hemroidectomy Family History Problem Relation Alcohol/Drug Maternal Grandfather Allergies Mother Allergies Father Allergies Brother Allergies Maternal Grandfather Arthritis Maternal Grandmother Arthritis Maternal Grandfather Arthritis Paternal Grandmother Arthritis Paternal Grandfather Asthma Brother Asthma Maternal Grandfather Diabetes Paternal Grandmother Headache Mother Headache Maternal Grandmother Hypertension Mother Hypertension Father Stroke Maternal Grandfather History Substance Use Topics Smoking status: Never Smoker Smokeless tobacco: Not on file Alcohol Use: No She has not had diagnostics or procedures. Current Outpatient Prescriptions Medication Sig HYDROcodone-acetaminophen (NORCO) 10-325 mg Oral Tablet Take 2 Tabs by mouth every four hours as needed. Not to exceed 10 tablets per any 24 hour period. (Not to exceed 3250 mg of acetaminophen from all products per 24 hour period.) KETOROLAC TROMETHAMINE (TORADOL IM) Inject 2 mg into the muscle (IM). levonorgestrel (MIRENA) 20 mcg/24 hr Intrauterine IUD 1 Each by Intrauterine route once . May be removed and replaced with a new unit at anytime during menstrual cycle; do not leav e any one system in place for > 5 years. LORazepam 1 mg Oral Tablet Take 2 mg by mouth every four hours as needed. ondansetron (ZOFRAN) 8 mg Oral Tablet Take 8 mg by mouth once daily. oxyCODONE, immediate release, 5 mg Oral tablet Take 5 mg by mouth every six hours as ne eded. promethazine 25 mg Oral Tablet Take 25 mg by mouth four times daily as needed. Allergies Allergen Reactions Morphine Anaphylaxis Ms. Farah reports no side effects. The Review of Systems obtained by the [facility] was reviewed. Additional Review of Systems: 1. BONES, JOINTS AND MUSCLES atrophy, cramps , joint pain, muscle pain, stiffness and swell ing 2. GASTROINTESTINAL SYSTEM nausea 3. GENITOURINARY SYSTEM negative 4. NERVOUS SYSTEM numbness and weakness 5. PSYCHIATRIC HISTORY sleep disturbance, decreased interest in previously enjoyable activi ties, guilt, decreased energy, concentration , decreased or increased appetite, suicidal or homicidal ideation, anxiety, fear of physical activity and social withdrawal PE: BP 143/78 | Pulse 120 | Temp (Src) 36.8 C (98.2 F) (Oral) | RR 16 | Ht 1.651 m (5' 5") | Wt 81.647 kg (180 lb) | SpO2 93% | BMI 29.95 kg/(m^2) Appears healthy. Alert; in no acute distress. Pleasant. Oriented , interactive. Ambulates without restrictions. Assessment: 355.71B CRPS (complex regional pain syndrome), lower limb Ms. Farah is a 22 y.o. female with left foot CRPS that began in 2001 after a trampoline injury which resulted in compartment syndrome with fasciotomy, peroneal nerve injury, neurom a, and neurectomy. The patient is status post SCS trial on 08/02/2012. Despite good coverage of the SCS with multiple programs with both [facility] programs, however it appears that it does not improve her pain, there no apparent side effects of the SCS (no sensory or motor deficits, vomiting, stiffness, backaches, fever or h eadaches) At this point, It is evident that the trial is unsuccessful, the leads were pulled out with out difficulty, no complications, patient tolerated the procedure well. She will follow up i n few weeks to discuss other options Plan: 1. Follow-up in few weeks to discuss other options. 2. instructed the patient not to use Hot tub or have a bath today, OK to shower. HENOK GUO [facility] documented in this en counter Plan of Treatment Not on filedocumented as of this encounter Visit Diagnoses + + | Diagnosis | + + | CRPS (complex regional pain syndrome), lower limb - Primary Causalgia of lower limb | + + documented in this encounter
--- OUTSIDE RECORDS SUMMARY | ~2020-05-26 | XMS | Encounter Summary ---
Demographics + + + | Address | [address] | | | [place] [address] | + + + | Home Phone | | + + + | Preferred Language | Unknown | + + + | Marital Status | Single | + + + | Scientologist Affiliation | FMD | + + + [...] Team Providers + +------+ + | Care Registered Art Therapist Name | Role | Phone | + +------+ + | Justo Vazquez MD | PCP | | + +------+ + Encounter Details +--------+ + + + + | Date | Type | Department | Care Team | Description | +--------+ + + + + | 12/02/ | Document-Sc | UNKNOWN DEPARTMENT | Unknown . | | | 2017 | anned | [address] | | | | | | [address] | | | | | | [place], [place] | | | | | | [address] | | | +--------+ + + + [...] + + + | RADIOLOGY | | 12/02/2016 | | Results for this | | | | 12:00 AM | | procedure are in the | | | | PST | | results section. | + +--------+ + + + documented in this encounter Results RADIOLOGY (12/02/2016 12:00 AM PST) + + + | Narrative | Performed At | + + + | | | + + + documented in this encounter Visit Diagnoses Not on filedocumented in this encounter"
--- OUTSIDE RECORDS SUMMARY | ~2020-05-26 | XMS | Encounter Summary ---
Demographics + + + | Address | [address] | | | [place] [address] | + + + | Home Phone | | + + + | Preferred Language | Unknown | + + + | Marital Status | Single | + + + | Mormon Affiliation | FMD | + + + [...] Team Providers + +------+ + | Care Risk Assessor Name | Role | Phone | + +------+ + | Justo Vazquez MD | PCP | | + +------+ + Encounter Details +--------+ + + + + | Date | Type | Department | Care Team | Description | +--------+ + + + + | 01/02/ | Telephone | [facility] | Ilene Bright, | | | 2019 | | Pain Center at | BARIATRIC PROGRAM COORDINATOR [address] | | | | | [facility] | [place], [place] | | | | | [address] | [address] | | | | | [place] for [facility] | [phone] | | | | | and Healing, | | | | | | | | | | | | Floor [place], [place] | | | | | | [address] | | | | | | [phone] | | | +--------+ + + + [...]
--- OUTSIDE RECORDS SUMMARY | ~2020-05-26 | XMS | Encounter Summary ---
Demographics + + + | Address | [address] | | | [place] [address] | + + + | Home Phone [...] Team Providers + +------+ + | Care Deputy Grand Jury Name | Role | Phone | + [...] | | | | | Constipation | [address] | | | | | , | [address] | [place] for | | | | | unspecified | [address] | Health and | | | | | constipation | [place], [place] | Healing, | | | | | type | [address] | [address] | | | | | Abdominal | | [place], [place] | | | | | pain, | | [address] | | | | | unspecified | | Phone: | | | | | location | | [phone] | | | | | Procedures | | Fax: | | | | | CONSULT TO | | [phone] | | | | | GI PROCEDURE | | | | | | | UNIT: | | | | | | | COLONOSCOPY | | | | | | | [place] | | | | | | | COLONOSCOPY, | | | | | | | FLEX, | | | | | | | W/BIOPSY | | | +--------+--------+ + + + + Reason for Visit + + + | Reason | Comments | + + + | Pain | Flare up | + + + | Vomiting | Bile | + + + Encounter Details +--------+ + + + + | Date | Type | Department | Care Team | Description | +--------+ + + + + | 10/19/ | Telephone | Digestive Health | Ava Carbajal | Pain (Flare up); | | 2015 | | Center at [facility] [address] | MD Melissa | Vomiting (Bile) | | | | [address] | | | | | | for Health and | | | | | | Healing, [address] | | | | | | [place], [place] | | | | | | [address] | | | | | | [phone] | | | +--------+ + + + [...] constipation type - Primary | + + | Abdominal pain, unspecified location | + + documented in this encounter"
--- OUTSIDE RECORDS SUMMARY | ~2020-05-26 | XMS | Encounter Summary ---
Demographics + + + | Address | [address] | | | [place] [address] | + + + | Home Phone | | + + + | Preferred Language | Unknown | + + + | Marital Status | Single | + + + | Mosque Affiliation | FMD | + + + | Race | White | + + + | Ethnic Group | Not or | + + + Author + + + | Author | [facility] | + + + | Organization | [facility] | + + + | Address | Unknown | + + + | Phone | Unavailable | + + + Support + + +---------+ + | Name | Relationship | Address | Phone | + + +---------+ + | Patricia Colin | ECON | Unknown | | + + +---------+ + Care Team Providers + +------+ + | Care Kaiawhina Kohanga Reo Name | Role | Phone | + [...] | Diagnoses | [place]ul[place] | 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 | | | | Therapy | CRPS | Janak Martinez MD | [address] | | | | | (complex | [address] | | | | | regional | [address] | Mailcode: | | | | | pain | Mailstop | [facility] | | | | | syndrome), | [id number] | for Health | | | | | lower limb | [place], [place] | and Healing, | | | | | Gait | [address] | [address] | | | | | disturbance | Phone: | [place], [place] | | | | | Muscle pain | [phone] | [address] | | | | | Procedures | Fax: | Phone: | | | | | PHYSICAL | [phone] | [phone] | | | | | THERAPY | [...] | | | | [place] | [place] [address] | syndrome), lower | | | | [address] | [phone] | limb (Primary Dx) | | | | [facility] | | | | | | and Healing, | | | | | | Building 1, | | | | | | Floor [place], [place] | | | | | | [address] | | | | | | [phone] | | | +--------+---------+ + + + [...] might be different f rom the original. [id number] BRODY FARAH Date of : 1990 Start of care: 02/14/2012 Date of onset: 02/14/2012 Referring/Attending Practitioner: Janak Riojas MD . Primary/Referral Diagnosis/ICD-9: 355.71B CRPS (complex regional pain syndrome), lower limb Insurance: Payor: [facility] Plan: BCBS OUT OF STATE Product Type: PP O Service period from: 02/14/2012 to: 08/12/2012 Number visits used/authorized: 01/23 [facility] PHYSICAL THERAPY PROGRESS NOTE SUBJECTIVE: Age: 21 y.o. Sex: female Chief complaint: No chief complaint on file. Current: pt has been doing her neck exercises. She is not shaking as much. Her foot hurts t bruno. Now she is working at [employer] 2-3 hours per week, and spends a lot of the day hanging out on the couch at home. She wants to improve her whole body fitness and find things she can d o without flaring up her ankle. She does have a gym that she can use and she has a family fr ierafael who is a local PT. History of [...] Baselines Activity 05/10/2012 05/03/2012 Walk without crutches / mile / mile unilateral rows 7.5 x 5 Risks [...] change in their status. Guillermo Sanon MSPT [facility] Outpatient Rehabilitation Services Mailcode: Ch3g [address] [facility], [address] [place] [address] documented in this encounter Plan of Treatment Not on filedocumented as of this encounter Procedures + +--------+ + + + | Procedure Name | Priori | Date/Time | Associated Diagnosis | Comments | | | ty | | | | + +--------+ + + + | MS THERAPEUTIC | Routin | 05/11/2012 | CRPS [...]
--- OUTSIDE RECORDS SUMMARY | ~2020-05-26 | XMS | Encounter Summary ---
Demographics + + + | Address | [address] | | | [place] [address] | + + + | Home Phone [...] Team Providers + +------+ + | Care Shadowgraph Operator Name | Role | Phone | [...] ogy | | Ava Torres, | [address] | | | | | Constipation | [address] | | | | | , | [address] | [place] for | | | | | unspecified | [address] | Health and | | | | | constipation | [facility] [place] | Healing, | | | | | type | [address] | [address] | | | | | Procedures | | [place], [place] | | | | | CONSULT TO | | [address] | | | | | GI PROCEDURE | | Phone: | | | | | UNIT: | | [phone] | | | | | ANORECTAL | | Fax: | | | | | MANOMETRY | | [phone] | | | | | AK ANAL | | | | | | | PRESSURE | [...] | | | | ogy | | [place], | [address] | | | | | Gastroparesi | Allegra Nieto, | [address] | | | | | s | [place] [address] | Center for | | | | | | [address] | Health and | | | | | | [place], | Healing, | | | | | | [place] [address] | [address] | | | | | | Phone: | [place], [place] | | | | | | [phone] | [address] | | | | | | Fax: | Phone: | | | | | | [phone] | [phone] | | | | | | | Fax: | | | | | | | [phone] | +--------+--------+ + + + + Encounter Details +--------+---------+ + + + | Date | Type | Department | Care Team | Description | +--------+---------+ + + + | 08/10/ | Office | Digestive Health | Ava Carbajal | Constipation, | | 2015 | Visit | Center at [facility] [address] | MD Melissa | unspecified | | | | [address] [facility] | | constipation type | | | | for Health and | | (Primary Dx) | | | | Healing, [address] | | | | | | [place], [place] | | | | | | [address] | | | | | | [phone] | | | +--------+---------+ + + + [...] in their attached note. Celia Lin MD Data Storage Specialistfinger cobbler Division of Gastroenterology & Hepatology [facility] va Carbajal MD - 08/09/2016 8:40 PM PDT Gastroenterology Initial Clinic Note 08/09/2016 CHIEF COMPLAINT/IDENTIFICATION: "Gastroparesis"-Nausea emesis and abdominal pain -SECOND O GERMAINE Dr. Flores-Radha [facility] PCP: HANDY Villalpando HISTORY OF [...] phase emptying with normlaization by end of e study and no food in stomach at 4 hours. As such she ultimately has a normal GES. Patient is seen by Dr. Flores in [facility]. Patient has hx of GERD [...] had CT abdomen w contrast done at [facility] on 10/23/15 showing large stool burden but [...] GI MDS: Dr. Nyla Garcia GI Dr. [facility] LABS: -increased CRP 06/19/16: Lipase-normal [...] form versus functional syndrome. 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 If negative ARM would refer for sitrachelle donaldson ker study to eval for colonic inertia. Hold [...]
--- OUTSIDE RECORDS SUMMARY | ~2020-05-26 | XMS | Encounter Summary ---
Demographics + + + | Address | [address] | | | [place] [address] | + + + | Home Phone | | + + + | Preferred Language | Unknown | + + + | Marital Status | Single | + + + | Islam Affiliation | FMD | + + + [...] Team Providers + +------+ + | Care Coffee Urn Attendant Name | Role | Phone | + +------+ + | Justo Vazquez MD | PCP | | + +------+ + Reason for Visit + + + | Reason | Comments | + + + | Medication Refill | ketamine | | Request | | + + + Encounter Details +--------+ + + + + | Date | Type | Department | Care Team | Description | +--------+ + + + + | 03/29/ | Telephone | [facility] | Alex Sanchez, | Medication Refill | | 2018 | | Pain Center at | ,PhD [address] | Request (ketamine) | | | | [facility] | [address] | | | | | [address] | [place], [place] | | | | | [facility] | [address] | | | | | and Healing, | [phone] | | | | | | | | | | | Floor [place], [place] | | | | | | [address] | | | | | | [phone] | | | +--------+ + + + [...]
--- OUTSIDE RECORDS SUMMARY | ~2020-05-26 | XMS | Encounter Summary ---
Demographics + + + | Address | [address] | | | [place] [address] | + + + | Home Phone [...] Team Providers + +------+ + | Care Culinary Manager Name | Role | Phone | [...] | | 2016 | | Center at [facility] [address] | MD Melissa | | | | | [address] [place] | | | | | | for Health and | | | | | | Healing, [address] | | | | | | [place], [place] | | | | | | [address] | | | | | | [phone] | | | +--------+ + + + [...]
--- OUTSIDE RECORDS SUMMARY | ~2020-05-26 | XMS | Encounter Summary ---
Demographics + + + | Address | [address] | | | [place] [address] | + + + | Home Phone | | + + + | Preferred Language | Unknown | + + + | Marital Status | Single | + + + | Congregational Affiliation | FMD | + + + | Race | White | + + + | Ethnic Group | Not or | + + + Author + + + | Author | [facility] | + + + | Organization | [facility] | + + + | Address | Unknown | + + + | Phone | Unavailable | + + + Support + + +---------+ + | Name | Relationship | Address | Phone | + + +---------+ + | Patricia Colin | ECON | Unknown | | + + +---------+ + Care Team Providers + +------+ + | Care Engrosser Name | Role | Phone | + +------+ + | Justo Vazquez MD | PCP | | + +------+ + Encounter Details +--------+ + + + + | Date | Type | Department | Care Team | Description | +--------+ + + + + | 12/28/ | Manager Biologics | [facility] | Alex Sanchez, | Arthralgia of lower | | 2018 | | Pain Center at | ,PhD [address] | leg, unspecified | | | | [facility] | [address] | laterality (Primary | | | | [address] | [place], [place] | Dx) | | | | Center for Health | [address] | | | | | and Healing, | [phone] | | | | | | | | | | | Floor [place], [place] | | | | | | [address] | | | | | | [phone] | | | +--------+ + + + [...] + | Diagnosis | + + | Arthralgia of lower leg, unspecified laterality - Primary | + + documented in this encounter"
--- OUTSIDE RECORDS SUMMARY | ~2020-05-26 | XMS | Encounter Summary ---
Demographics + + + | Address | [address] | | | [place] [address] | + + + | Home Phone [...] Team Providers + +------+ + | Care Junior Brand Manager Name | Role | Phone | + +------+ + | Allegra Gandhi | PCP | | + +------+ + Encounter Details +--------+ + + + + | Date | Type | Department | Care Team | Description | +--------+ + + + + | 08/02/ | Results | [facility] | Janak Riojas, | | | 2011 | Only | Pain Center at | MD [address] [facility] | | | | | [facility] | [facility] [id number] | | | | | [address] | [place], [place] | | | | | Center for Health | [address] | | | | | and Martina, | [phone] | | | | | | | | | | | Floor [place], [place] | | | | | | [address] | | | | | | [phone] | | | +--------+ + + + [...] as of this encounter Plan of Treatment + +---------+--------+ + + | Name | Type | Priori | Associated Diagnoses | Date/Time | | | | ty | | | + +---------+--------+ + + | X-RAY PAIN CLINIC | Imaging | Routin | | 08/02/2012 8:47 AM | | FLUORO | | e | | PDT | + +---------+--------+ + + documented as of this encounter Visit Diagnoses Not on filedocumented in this encounter"
--- OUTSIDE RECORDS SUMMARY | ~2020-05-26 | XMS | Encounter Summary ---
Demographics + + + | Address | [address] | | | [place] [address] | + + + | Home Phone | | + + + | Preferred Language | Unknown | + + + | Marital Status | Single | + + + | Restorationism Affiliation | FMD | + + + [...] Team Providers + +------+ + | Care Quarter Supervisor Name | Role | Phone | + +------+ + | Justo Vazquez MD | PCP | | + +------+ + Encounter Details +--------+------+ + + + | Date | Type | Department | Care Team | Description | +--------+------+ + + + | 04/23/ | Lab | Laboratory at [facility] | | Other chronic pain ; | | 2018 | | [address] | | Complex regional | | | | Center for [facility] | | pain syndrome type 1 | | | | and Healing, | | of left lower | | | | Building 2 | | extremity | | | | [place], [place] | | | | | | [address] | | | | | | [phone] | | | +--------+------+ + + + [...] + + | DRUG | Routin | 04/23/2019 | Other chronic pain | Results for this | | SCREEN,URINE;W/CONFI | e | 1:54 PM | Complex regional | procedure are in the | | RM | | PDT | pain syndrome type 1 | results section. | | | | | of left lower | | | | | | extremity [...] + | Urine - Urine | | specimen collection, | | clean catch | | (procedure) | + + + + + | Narrative | Performed At | + + + | Minimum drug concentration yielding a positive urine drug screen | [facility] | | Amphetamines >=1000 ng/mL | LABORATORY | | Barbiturates >=200 ng/mL | [facility] | | Benzodiazepine >=200 ng/mL Cocaine | | | >=300 ng/mL Methadone | | | >=300 ng/mL Opiates >=300 ng/mL | | | Oxycodone >=100 ng/mL THC - | | | Cannabinoid >=50 ng/mL Screening results are not [...] + + + | KEVIN SHAH | [address] | [place] [address] | | | SERVICES, LILLIAN | [address] | | | + + + + + documented in this encounter Visit Diagnoses + + | Diagnosis | + + | Other chronic pain Other chronic pain | + + | Complex regional pain syndrome type 1 of left lower extremity | + + documented in this encounter"
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
--- OUTSIDE RECORDS SUMMARY | ~2020-05-26 | XMS | Encounter Summary ---
Demographics + + + | Address | [address] | | | [place] [address] | + + + | Home Phone [...] Team Providers + +------+ + | Care Business Advisor Name | Role | Phone | + +------+ + | Allegra Gandhi | PCP | | + +------+ + Encounter Details +--------+ + + + + | Date | Type | Department | Care Team | Description | +--------+ + + + + | 03/01/ | Results | [facility] | Janak Riojas, | | | 2011 | Only | Pain Center at | MD [address] [facility] | | | | | [facility][Note 2] | [facility] [address] | | | | | [address] | [place], [place] | | | | | Center for Health | [address] | | | | | and [place]ina, | [phone] | | | | | | | | | | | Floor [place], [place] | | | | | | [address] | | | | | | [phone] | | | +--------+ + + + [...] CLINIC | Imaging | Routin | | 03/01/2012 1:48 PM | | FLUORO | | e | | PDT | + +---------+--------+ + + documented as of this encounter Visit Diagnoses Not on filedocumented in this encounter"
--- OUTSIDE RECORDS SUMMARY | ~2020-05-26 | XMS | Encounter Summary ---
Demographics + + + | Address | [address] | | | [place] [address] | + + + | Home Phone [...] Team Providers + +------+ + | Care Stucco Mason Name | Role | Phone | + +------+ + | Justo Vazquez MD | PCP | | + +------+ + Reason for Visit + + + | Reason | Comments | + + + | Ankle pain | Left | + + + | Foot pain | Left | + + + Consultation (Routine) +--------+--------+ + + + + | Status | Reason | Specialty | Diagnoses / | Referred By | Referred To | | | | | Procedures | Contact | Contact | +--------+--------+ + + + + | Closed | | Pain | Diagnoses | Chasity, | Daniel | | | | Management | Abdominal | MD Kenny | Alex Alab, | | | | | pain, | [address] | ,PhD [address] | | | | | unspecified | [facility] | [address] | | | | | location | Rd | [facility] | | | | | Procedures | [place], [place] | Rd [place], | | | | | CONSULT TO | [address] | [place] | | | | | PAIN | | [address] | | | | | MANAGEMENT | | Phone: | | | | | | | [phone] | | | | | | | Fax: | | | | | | | [phone] | +--------+--------+ + + + + Encounter Details +--------+---------+ + + + | Date | Type | Department | Care Team | Description | +--------+---------+ + + + | 05/08/ | Office | [facility] Comprehensive | Alex Sanchez, | Complex regional | | 2018 | Visit | Pain Center at | ,PhD [address] | pain syndrome type 1 | | | | [place] | [facility] [address] | of left lower | | | | [address] | [place], [place] | extremity (Primary | | | | Center for Health | [address] | Dx); Pain of upper | | | | and Healing, | [phone] | abdomen; Intractable | | | | | | cyclical vomiting | | | | Floor [place], [place] | | with nausea; | | | | [address] | | Disturbance in sleep | | | | [phone] | | behavior; Abdominal | | | | | | scar neuroma | +--------+---------+ + + + Social History [...] + + + | Blood Pressure | 124/71 | 05/08/2018 10:47 AM | | | | | PDT | | + + + + + | Pulse | 86 | 05/08/2018 10:47 AM | | | | | PDT | | + + + + + | Temperature | - | - | | + + + + + | Respiratory Rate | 16 | 05/08/2018 10:47 AM | | | | | PDT | | + + + + + | Oxygen Saturation | 100% | 05/08/2018 10:47 AM | | | | | PDT | | + + + + + | Inhaled Oxygen | - | - | | | Concentration | | | | + + + + + | Weight | 73.9 kg (163 lb) | 05/08/2018 10:47 AM | | | | | PDT | | + + + + + | Height | 162.6 cm (5' 4") | 05/08/2018 10:47 AM | | | | | PDT | | + + + + + | Body Mass Index | 27.98 | 05/08/2018 10:47 AM | | | | | PDT | | + + + + + documented in this encounter Patient Instructions Patient Instructions Sonia Key - 05/08/2018 10:30 AM PDTKelly, Thank you for taking the time to see us in the [facility]. It was great to s ee you. We saw you today for your left ankle and foot pain. Below is a summary of the discu ssion that we had today: - We updated your letter today. - Continue with plan to find an orthopedic surgeon who is able to perform your hardware rem oval surgery. - If your pain continues to worsen, I recommend trial of DRG stimulation.Electronically sig isabel by Sonia Key at 05/08/2018 11:28 AM PDT documented in this encounter Progress Notes Holly Edouard MA - 05/08/2018 10:30 AM PDTCMA History: 1. Has your pain [...] JOINTS AND MUSCLES atrophy, joint pain, muscle pain, stiffness and swelling 2. GASTROINTESTINAL SYSTEM nausea, constipation and abdominal pain 3. GENITOURINARY SYSTEM urinary hesitancy, urinary incontinence and dysmenorrhea 4. NERVOUS SYSTEM weakness and vertigo 5. PSYCHIATRIC HISTORY sleep disturbance, guilt, decreased energy, concentration and fea r of physical activity Alex Ha MD,P hD - 05/08/2018 10:30 AM PDT [facility] Return Visit Date: 05/08/2018 Chief Complaint Patient presents with Ankle pain Left Foot pain Left History of Present Illness: Tracie Farah is a 27 year old female, whose last appoi ntment at the [facility] was April 19, 2018, for a clinic visit. At that time our plans were: Recommendation/Plan: Follow up as needed Today, she complains of constant pain located in the left foot and ankle. Her pain is made worse by activity. Her pain is improved by ketamine and rest. This condition has remained un changed since Ms. Farah's last visit. She does not have new pain complaints on this visit . Ms. Farah reports that there have been no changes in her history since the last appoint ment. Before the letter, she went into the ED. While there, she was given Haldol and benadryl exp eriencing an adverse reaction to it describing increased agitation. She saw her counselor maria d patel next day who added it to a note that she brings with her to the ED each time that 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, Surgeon: Janak Riojas MD Cholecystectomy Appendectomy [...] History Social History Narrative Single. Goes to [employer] college with a light load. Has been working at [employer], can' t work on [employer]. Has roommates. Allergies Allergen Reactions Morphine Anaphylaxis [...] not use long er than 2-3 weeks. KETAMINE 100 MG/ML INJECTION SOLUTION 20 to 30 sprays in each nostril every 3 hrs as needed for pain as directed by physician. Concentration is 150mg/mL. Compounded by [facility] ) KETOROLAC IM Inject into the muscle [...] Joints, and Muscles: atrophy, joint pain, muscle pain, stiffness and swelling Gastrointestinal System: nausea, constipation and abdominal pain Genitourinary System: urinary hesitancy, urinary incontinence and dysmenorrhea Nervous System: weakness and vertigo Psychiatric History: sleep disturbance, guilt, decreased energy, concentration and fear o f physical activity Physical Examination: BP 124/71 | Pulse 86 | RR 16 | Ht 1.626 m (5' 4") | Wt 73.9 kg (163 lb) | SpO2 100% | BMI 2 7.98 kg/(m^2) Physical Exam Constitutional: She is oriented [...] syndrome type 1 of left lower extremity R10.10 Pain of upper abdomen G43.A1 Intractable cyclical vomiting with nausea G47.9 Disturbance in sleep behavior D36.15 Abdominal scar neuroma For today's evaluation, I have included my personal review of Ms. Farah's history and ph ysical examination. I also used the following components in my medical decision making: Review and summary of old medical records (source: [facility]), as summarized in the body of the note. Impression: Ms. Tracie Farah is a 27 y.o. female with a history of CRPS of the lower extremity as well as abdominal pain associated with severe,cyclical nausea and vomiting. Today, she r eports experiencing a severe pain flare to brought her to the ED where she was given Haldol and subsequently experienced an adverse reaction. She requested an update to the letter I pr eviously provided to bring into the ED for future pain flares including her latest episode w marcelo Rivera. In regards to her ongoing pain, I discussed my recommendation to continue the search for an orthopedic surgeon to consider removing the pins adjacent to the metabolically active bone in her ankle. Bone scan uptake was profoundly abnormal in that area and not consistent with CRPS. If following this surgery she continues to be painful, I recommend proceeding with a t rial of DRG stimulation. Recommendation/Plan: - Letter updated today with recent adverse reaction to Miguel - Consider seeing orthopedic surgeon who is able to perform hardware removal surgery of her screws - May consider trial of DRG stimulation should she continue to be painful following hardwar e removal surgery I, Sonia Key, am functioning as a scribe for Alex Sanchez MD,PhD. I have reviewed and verified the above scribed note of my visit with this patient as record ed by Sonia Key. Alex Sanchez MD PhD Grain Picker Anesthesiology and Pain Management [facility] documented in this encounter Plan of Treatment Not on filedocumented as of this encounter Visit Diagnoses + + | Diagnosis | + + | Complex regional pain syndrome type 1 of left lower extremity - Primary | + + | Pain of upper abdomen Abdominal pain, other specified site | + + | Intractable cyclical vomiting with nausea | + + | Disturbance in sleep behavior Sleep disturbance, unspecified | + + | Abdominal scar neuroma Other benign neoplasm of connective and other soft tissue of | | abdomen | + + documented in this encounter
--- OUTSIDE RECORDS SUMMARY | ~2020-05-26 | XMS | Encounter Summary ---
Demographics + + + | Address | [address] | | | [place] [address] | + + + | Home Phone [...] Team Providers + +------+ + | Care Rn Enterostomal Name | Role | Phone | + [...] | | syndrome | [place] | [facility] | | | | | type 1 of | Rd | Rd [place], | | | | | left lower | [place], [place] | [place] | | | | | extremity | [address] | [address] | | | | | Procedures | Phone: | Phone: | | | | | REQUEST TO | [phone] | [phone] | | | | | SURGERY | Fax: | Fax: | | | | | GAS STATION CLERK | [phone] | [phone] | +--------+---------+ + + + + Encounter Details +--------+---------+ + + + | Date | Type | Department | Care Team | Description | +--------+---------+ + + + | 09/28/ | Office | [facility] Comprehensive | Yun Frey, COTTON WEIGHER | Complex regional | | 2018 | Visit | Pain Center at | [address] | pain syndrome type 1 | | | | [place] | [place], [place] | of left lower | | | | [address] | [address] | extremity (Primary | | | | [facility] for [facility] | [phone] | Dx); Arthralgia of | | | | and Healing, | | left lower leg | | | | | | | | | | [place], [place] | | | | | | [address] | | | | | | [phone] | | | +--------+---------+ + + + [...] Instructions Dayana Ivan - 09/28/2018 12:05 PM PSTTracie, Thank you for taking the time to see us in the [facility]. It was great to s ee you. Below is a summary of the discussion that we had today: - Please keep your appointment with Dr. Sanchez on 10/02/2018. -Please contact the [facility]'s rep if you have any further question [...] act ivity and social withdrawal Yun Tim, LIZBETH - 1 11/28/2017 12:05 PM PST September 28, 2018 Tracie Farah [id number] [facility] Return Visit Chief Complaint: [...] and a pain drawing which I reviewed. [facility] Questionnaire Follow-up Patient 10/10/2017 Please describe the [...] PROCEDURE: DRG Spinal Cord Stimuation Trial with [employer] system LEVEL/LATERALITY: left L4, L5. Till date, [...] turned up to 7%. After seeing th sales solutions representative today and killian ing adjustments, she [...] Hemroidectomy Trial spinal cord stimulator leads 08/02/2012 [facility], Surgeon: Janak Riojas MD Cholecystectomy [...] the vein (IV) every eight hour s. 1715-1343-28 COMPOUNDED MED RX CONTROLLED (SEE ADMIN INSTRUCT [...] by physician. Concentration is 150mg/mL. Compounded by [facility] ) KETOROLAC IM Inject into the [...] (IV) every twel ve hours as needed. 8834-3572-91 ONDANSETRON 4 MG DISINTEGRATING TABLET Dissolve 1 tablet in mouth every twelve hours as nee ded. PANTOPRAZOLE 40 MG TABLET,DELAYED RELEASE Take 40 mg by mouth once daily. PEG 3350-ELECTROLYTES 236 GRAM-22.74 GRAM-6.74 GRAM-5.86 GRAM SOLUTION Take as directed by [facility] Digestive [facility]- 2 gallon bowel prep POLYETHYLENE GLYCOL 3350 [...] been given programming opti ons by the [employer]'s device sales solutions representative, Michele. At this time, there is no complication from the DRG trial. Recommendations/Plan: 1. Recommend to keep her appointment with Dr. Sanchez on 10/02/2018. 2. To contact the [employer]'s rep if she has any further question on programming. 09/28/2018: I, Dayana Ivan, am functioning as a caregivers non medical for Yun Frey NP. I have reviewed and verified the above scribed note of my visit with this patient as record ed by Ms. Dayana Ivan. Jeanine Frey (Mr.) MSN, ACNP- Nurse Practitioner [facility] [address] [place] [id number] documented in this enco unter Plan of [...]
--- OUTSIDE RECORDS SUMMARY | ~2020-05-26 | XMS | Encounter Summary ---
Demographics + + + | Address | [address] | | | [place] [address] | + + + | Home Phone [...] Team Providers + +------+ + | Care Residential Solar Sales Consultant Name | Role | Phone [...] 2011 | | Pain Center at | [address] | | | | | [facility] | [facility] [id number] | | | | | [address] | [place], [place] | | | | | Center for Health | [address] | | | | | and Healing, | [phone] | | | | | [facility] | | | | | | Floor [place], [place] | | | | | | [address] | | | | | | [phone] | | | +--------+ + + + [...]
--- OUTSIDE RECORDS SUMMARY | ~2020-05-26 | XMS | Encounter Summary ---
Demographics + + + | Address | [address] | | | [place] [address] | + + + | Home Phone [...] Team Providers + +------+ + | Care Advertising Columnist Name | Role | Phone | + [...] | | | Spasticity | Ave | [facility] [place] | | | | | Procedures | [facility] [place] | [address] | | | | | CONSULT TO | [address] | Phone: | | | | | PAIN | Phone: | [phone] | | | | | MANAGEMENT | [phone] | Fax: | | | | | | Fax: | [phone] | | | | | | [phone] | | +--------+---------+ + + + + [...] | | MD Celia | MD Brendan [address] | | | | | Fibromyalgia | [address] | [address] | | | | | Spasticity | Ave | [address] | | | | | Epigastric | [place], [place] | Rd [place], | | | | | pain | [address] | [place] | | | | | Procedures | Phone: | [phone] | | | | | REQUEST TO | [phone] | Phone: | | | | | SURGERY | Fax: | [phone] | | | | | HIGHWAY ADMINISTRATIVE ENGINEER | [phone] | Fax: | | | | | [place] INJECT | | [phone] | | | | | TRIGGER | | | | | | | POINT, 1 [place] | | | | | | | 2 [place] INJECT | | | | | | [...] Pain Medicine | Diagnoses | Chasity, | Pathology Laboratory Aides Teacher Chh1 | | | | / Pain | Abdominal | MD Kenny | [address] | | | | Management | pain, | [address] | Ave Center | | | | | unspecified | [facility] | for Health | | | | | location | Rd | and Healing, | | | | | Procedures | [place], [place] | Building | | | | | CONSULT TO | [address] | 1,15th Floor | | | | | PAIN | | [place], [place] | | | | | MANAGEMENT | | [address] | | | | | | | Phone: | | | | | | | [phone] | | | | | | | Fax: | | | | | | | [phone] | +--------+--------+ + + + + Encounter Details +--------+---------+ + + + | Date | Type | Department | Care Team | Description | +--------+---------+ + + + | 10/11/ | Office | [facility] | Vern Robertson, | Epigastric pain | | 2017 | Visit | Pain Center at | IT DATA ARCHITECT [address] | (Primary Dx); | | | | [facility] | [place], [place] | Spasticity | | | | [address] | [address] | | | | | [place] for [facility] | [phone] | | | | | and Healing, | | | | | | Building | | | | | | Floor [place], [place] | | | | | | [address] | | | | | | [phone] | | | +--------+---------+ + + + [...] true warrior! * Please sign up for Pin or PegHART. This is the best way to communicate with me. It will save you time in the long run. The procedure you discussed with your doctor is called: Trigger point injection of abdomina l scar. Please make sure this is scheduled with the Coating Manager. PRE-PROCEDURE INSTRUCTIONS 1. Please bring a cdl dedicated truck driver with you as we may give you medications that impair your ability to drive. This is necessary even if you do not receive sedation. You may take a taxi or ri [employer] if you are accompanied by a responsible [...] or blood thinning medications (other than aspirin), [facility] doctor who is doing your procedure will communicate with the provider who is prescribing y our anticoagulant therapy. If you do not have clear instructions on what to do with your an ticoagulant by 2 weeks before your procedure, please contact [facility] to cl arify your instructions. The phone number for questions or concerns is [phone]. * Consider Lidoderm topical or compound prescription [...] muscle hyper tonicity. * Consider increasing your Mcgraws 3 fats. Mcgraws-3 fats are precursors to mediators of inflammation [...] oil if approved by your PCP or defective cigarette slitter. * Eliminate High Fructose Normandy Syrup and Sugar from your diet as [...] review treatment plan. * Follow up with [facility] as needed. It was good to see you today. Thank you for taking the time to see us in the [facility] today. As a reminder, this [...] NP - 1 12/11/2016 1:15 PM PST [facility] Return Visit Date: 10/11/2017 Chief Complaint Patient presents with Abdominal pain Back pain Foot pain History of Present Illness: Tracie Farah is a 27 year old female, whose last appoi ntment at the [facility] [place] was 07/11/17 with TERESA Clark, for a [...] She reports multiple diagnostic tests conducted at [facility] in [place], [place] including barium swallow and Hydrogen breath [...] Torodol shots: only form of symptom relief. GLUED WOOD TESTER Brief Pain Inventory: (ten= worst possible pain [...] Hemroidectomy Trial spinal cord stimulator leads 08/02/2012 [facility], Surgeon: Janak Riojas MD Cholecystectomy Appendectomy [...] History Social History Narrative Single. Goes to [employer] with a light load. Has been working at [employer], can' t work on cr4Lessches. Has roommates. Allergies Allergen Reactions Morphine Anaphylaxis [...] by physician. Concentration is 150mg/mL. Compounded by [facility] ) LAMOTRIGINE 200 MG TABLET Take [...] as directed by [facility] Digestive [facility]- 2 gallon bowel prep POLYETHYLENE GLYCOL [...] reviewed. - Review old medical records (from [facility]). Pertinent findings include: abdominal surger y - [...] review treatment plan. * Follow up with [facility] as needed. IGuillermo am scribing for Vern Robertson NP on 10/11/2017 I have reviewed and verified the above scribed note of my visit with this patient as record ed by Guillermo Hope. Vern Robertson NP [facility] FLOOR [address] Mail Code: Ch15p [place] [address] documented in this e ncounter Plan of Treatment Not on filedocumented as of this encounter Visit Diagnoses + + | Diagnosis | + + | Epigastric pain - Primary Abdominal pain, epigastric | + + | Spasticity Abnormal involuntary movements | + + documented in this encounter
--- OUTSIDE RECORDS SUMMARY | ~2020-05-26 | XMS | Encounter Summary ---
Demographics + + + | Address | [address] | | | [place] [address] | + + + | Home Phone [...] Team Providers + +------+ + | Care Split Leather Mosser Name | Role | Phone | + [...] 2016 | | Pain Center at | GAS PLANT DISPATCHER [address] | | | | | [facility] | [place], [place] | | | | | [address] | [address] | | | | | [facility] | [phone] | | | | | and Healing, | | | | | | [facility] | | | | | | [place], [place] | | | | | | [address] | | | | | | [phone] | | | +--------+ + + + [...]
--- OUTSIDE RECORDS SUMMARY | ~2020-05-26 | XMS | Encounter Summary ---
Demographics + + + | Address | [address] | | | [place] [address] | + + + | Home Phone [...] Author | [facility] | + + + | Organization | [facility] | + + + | Address | Unknown | + + + | Phone | Unavailable | + + + Support + + +---------+ + | Name | Relationship | Address | Phone | + + +---------+ + | Patricia Colin | ECON | Unknown | | + + +---------+ + Care Team Providers + +------+ + | Care Materials Handler Name | Role | Phone | + [...] | | | | | extremity | [address] | [address] | | | | | Procedures | Phone: | Phone: | | | | | REQUEST TO | [phone] | [phone] | | | | | SURGERY | Fax: | Fax: | | | | | LINE CREWMAN | [phone] | [phone] | +--------+---------+ + + + + Encounter Details +--------+---------+ + + + | Date | Type | Department | Care Team | Description | +--------+---------+ + + + | 12/22/ | Office | [facility] Comprehensive | Ilene Bright, | Complex regional | | 2019 | Visit | Pain Center at | CURB AND GUTTER LABORER [address] | pain syndrome type 1 | | | | [facility] | [place], [place] | of left lower | | | | [address] | [address] | extremity; S/P | | | | Spray for [facility] | [phone] | insertion of spinal | | | | and Healing, | | cord stimulator | | | | Building | | | | | | Floor [place], [place] | | | | | | [address] | | | | | | [phone] | | | +--------+---------+ + + + [...] fo r your reference. - The [place] customer service representative teacher met with you and made adjustments to your stimulator. I spoke w ith the customer service representative teacher and she is happy with your progress [...] call this prescription into the [facility] in [place]. It was great to see you again, documented in this encounter Progress Notes Ilene Bright, CURB AND GUTTER LABORER - 12/22/2018 11:00 AM PSTFormatting of this note might be different fr om the original. [facility] Return Visit Date: 12/22/2018 Chief Complaint Patient presents with Low back pain Pain in left leg History of Present Illness: Tracie Farah is a 28 year old female, whose last appoi ntment at the [facility] was 12/07/2018 following her [...] order to tolerate her incision site pain. YARD GENERAL CAR SUPERVISOR Brief Pain Inventory: (ten= worst possible [...] Hemroidectomy Trial spinal cord stimulator leads 08/02/2012 [facility], Surgeon: Janak Riojas MD Cholecystectomy Appendectomy [...] History Social History Narrative Single. Goes to [employer] with a light load. Has been working at [employer], can' t work on [employer]. Has roommates. Allergies Allergen Reactions Morphine Anaphylaxis [...] GRAM SOLUTION Take as directed by [facility] Digestive Health- 2 gallon bowel prep [...] with nausea Abdominal pain Abdominal scar neuroma [facility] CLINICAL PROTOCOL PATIENT (CLNPRO) - Implanted Spinal [...] and summary of old medical records (source: [facility], [facility] Everywhere), as summarized in the body [...] taking for her surgical incision. The [employer] customer service representative teacher visited the patient in order to make [...] ed by Collin Salomon. Ilene Childs DNP, CURB AND GUTTER LABORER-C [facility] [address] [place] [address] mith, Charline Torres MA - 12/22/2018 11:00 [...]
--- OUTSIDE RECORDS SUMMARY | ~2020-05-26 | XMS | Encounter Summary ---
Demographics + + + | Address | [address] | | | [place] [address] | + + + | Home Phone [...] Providers + +------+ + | Care Manager Internet Name | Role | Phone | + [...] + + | 09/30/ | Telephone | [facility] Ilene | Ilene Bright, | Phone communication | | 2017 | | Pain Center at | MOLD HOISTER [address] | | | | | [facility] | [place], [place] | | | | | [address] | [address] | | | | | [facility] | [phone] | | | | | and Healing, | | | | | | Building | | | | | | Floor [facility] [place] | | | | | | [address] | | | | | | [phone] | | | +--------+ + + + [...]
--- OUTSIDE RECORDS SUMMARY | ~2020-05-26 | XMS | Encounter Summary ---
Demographics + + + | Address | [address] | | | [place] [address] | + + + | Home Phone [...] Team Providers + +------+ + | Care Transitions Rn Care Coordinator Name | Role | Phone | + +------+ + | Justo Vazquez MD | PCP | | + +------+ + Encounter Details +--------+ + + + + | Date | Type | Department | Care Team | Description | +--------+ + + + + | 03/12/ | Telephone | [facility] | Alex Sanchez, | | | 2019 | | Pain Center at | ,PhD [address] | | | | | [facility] | [address] | | | | | [address] | [place], [place] | | | | | [place] for [facility] | [address] | | | | | and Healing, | [phone] | | | | | | | | | | | Floor [place], [place] | | | | | | [address] | | | | | | [phone] | | | +--------+ + + + [...]
--- OUTSIDE RECORDS SUMMARY | ~2020-05-26 | XMS | Encounter Summary ---
Demographics + + + | Address | [address] | | | [place] [address] | + + + | Home Phone [...] Team Providers + +------+ + | Care Data Entry Processor Name | Role | Phone | + +------+ + | Justo Vazquez MD | PCP | | + +------+ + Encounter Details +--------+ + + + + | Date | Type | Department | Care Team | Description | +--------+ + + + + | 04/23/ | Pharmacy | [facility] | | | | 2019 | Visit | & Healing Pharmacy | | | | | | [address] | | | | | | Mailcode: [place] | | | | | | [facility] and | | | | | | Healing, Building 1 | | | | | | [place], [place] | | | | | | [address] | | | | | | [phone] | | | +--------+ + + + [...]
--- OUTSIDE RECORDS SUMMARY | ~2020-05-26 | XMS | Encounter Summary ---
Demographics + + + | Address | [address] | | | [place] [address] | + + + | Home Phone [...] Providers + +------+ + | Care Field Marketing Team Leader Name | Role | Phone | + [...] | Telephone | [facility] | Ilene Birght, | Lab Order | | 2016 | | Pain Center at | SUPERINTENDENT FACTORY [address] | | | | | [facility] | [place], [place] | | | | | [address] | [address] | | | | | [facility] | [phone] | | | | | and Healing, | | | | | | Building | | | | | | [place], [place] | | | | | | [address] | | | | | | [phone] | | | +--------+ + + + [...]
--- OUTSIDE RECORDS SUMMARY | ~2020-05-26 | XMS | Encounter Summary ---
Demographics + + + | Address | [address] | | | [place] [address] | + + + | Home Phone | | + + + | Preferred Language | Unknown | + + + | Marital Status | Single | + + + | Jewish Affiliation | FMD | + + + [...] Team Providers + +------+ + | Care Aircraft Inspector Name | Role | Phone | [...] | Diagnoses | Beulah | Edu Pt Contract Preparer | | | | Therapy | CRPS | Janak Martinez MD | [address] | | | | | (complex | [address] | | | | | regional | [address] | Mailcode: | | | | | pain | Mailstop | [facility] | | | | | syndrome), | [id number] | for Health | | | | | lower limb | [place], [place] | and Healing, | | | | | Gait | [address] | Building 1 | | | | | disturbance | Phone: | [place], [place] | | | | | Muscle pain | [phone] | [address] | | | | | Procedures | Fax: | Phone: | | | | | PHYSICAL | [phone] | [phone] | | | | | THERAPY | [...] | | | | [place] | [place] [address] | syndrome), lower | | | | [address] | [phone] | limb (Primary Dx) | | | | [facility] | | | | | | and Healing, | | | | | | Building 1, | | | | | | Floor [place], [place] | | | | | | [address] | | | | | | [phone] | | | +--------+---------+ + + + [...] might be different f rom the original. [id number] BRODY FARAH Date of : 1990 Start of care: 02/14/2012 Date of onset: 02/14/2012 Referring/Attending Practitioner: Janak Riojas MD . Primary/Referral Diagnosis/ICD-9: 355.71B CRPS (complex regional pain syndrome), lower limb Insurance: Payor: [facility] Stylefie Plan: BCBS OUT OF STATE Product Type: PP O Service period from: 02/14/2012 to: 08/12/2012 Number visits used/authorized: 04/25 [facility] PHYSICAL THERAPY PROGRESS NOTE SUBJECTIVE: Age: 21 [...] Riojas today already. Pain rating at present: Symptoms are aggravated by: waking up in [...] change in their status. Guillermo Sanon MSPT [facility] Services Mailcode: Ch3p [facility] [facility], [address] [place] [address] documented in this encounter Plan of Treatment Not on filedocumented as of this encounter Procedures + +--------+ + + + | Procedure Name | Priori | Date/Time | Associated Diagnosis | Comments | | | ty | | | | + +--------+ + + + | [place] THERAPEUTIC | Routin | 06/13/2012 | CRPS [...]
--- OUTSIDE RECORDS SUMMARY | ~2020-05-26 | XMS | Encounter Summary ---
Demographics + + + | Address | [address] | | | [place] [address] | + + + | Home Phone [...] Team Providers + +------+ + | Care Project Inspector Name | Role | Phone | + +------+ + | Justo Vazquez MD | PCP | | + +------+ + Reason for Visit + + + | Reason | Comments | + + + | Medication Question | | + + + Encounter Details +--------+ + + + + | Date | Type | Department | Care Team | Description | +--------+ + + + + | 04/15/ | Telephone | [facility] | Kenny Gaspar MD | Medication Question | | 2016 | | [place] [address] [address] | | | | | | [address] [facility] | | | | | | for Health and | | | | | | Healing, [facility] 2 | | | | | | [place], [place] | | | | | | [address] | | | | | | [phone] | | | +--------+ + + + [...] + | Diagnosis | + + | 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
--- OUTSIDE RECORDS SUMMARY | ~2020-05-26 | XMS | Encounter Summary ---
Demographics + + + | Address | [address] | | | [place] [address] | + + + | Home Phone [...] Team Providers + +------+ + | Care Plate Former Name | Role | Phone | [...] | | | 2019 | Event | [facility] | MD Juan [address] | | | | | and Healing Surgery | [address] | | | | | Center Admitting | [place], [place] | | | | | Desk Located on the | [address] | | | | | 4th floor [address] | [phone] | | | | | [address] [place], | | | | | | [place] [address] | Arben Valerio MD | | | | | | [address] | | | | | | [address] | | | | | | [place], [place] | | | | | | [address] | | | | | | [phone] | | | | | | | [...]
--- OUTSIDE RECORDS SUMMARY | ~2020-05-26 | XMS | Encounter Summary ---
Demographics + + + | Address | [address] | | | [place] [address] | + + + | Home Phone [...] Team Providers + +------+ + | Care Powertrain Control Systems Engineer Name | Role | Phone | + +------+ + | Allegra Chaudhary | PCP | | + +------+ + Encounter Details +--------+ + + + + | Date | Type | Department | Care Team | Description | +--------+ + + + + | 10/21/ | Telephone | Dig[facility]ive Health | Antony Beltre, | | | 2014 | | [place] [address] [address] | [address] | | | | | [address] [place] | [place] [address] | | | | | for Health and | [phone] | | | | | [facility], [facility] 2 | | | | | | [place], [place] | | | | | | [address] | | | | | | [phone] | | | +--------+ + + + [...]
--- OUTSIDE RECORDS SUMMARY | ~2020-05-26 | XMS | Encounter Summary ---
Demographics + + + | Address | [address] | | | [place] [address] | + + + | Home Phone [...] Team Providers + +------+ + | Care Circuit Board Repair Technician Name | Role | Phone | + +------+ + | Justo Vazquez MD | PCP | | + +------+ + Encounter Details +--------+ + + + + | Date | Type | Department | Care Team | Description | +--------+ + + + + | 08/30/ | Documentati | [facility] | Jamel Madden G, | | | 2018 | on | [address] | PhD [address] | | | | | Center for Health | [place], [place] | | | | | and Healing, | [address] | | | | | | [phone] | | | | | Floor [place], [place] | | | | | | [address] | | | | | | [phone] | | | +--------+ + + + [...]
--- OUTSIDE RECORDS SUMMARY | ~2020-05-26 | XMS | Encounter Summary ---
Demographics + + + | Address | [address] | | | [place] [address] | + + + | Home Phone [...] Team Providers + +------+ + | Care Law Enforcement Officer Name | Role | Phone | + +------+ + | Justo Vazquez MD | PCP | | + +------+ + Encounter Details +--------+ + + + + | Date | Type | Department | Care Team | Description | +--------+ + + + + | 09/20/ | Telephone | [facility] | Ilene Bright, | | | 2017 | | Pain Center at | FILES SUPERVISOR [address] | | | | | [facility] | [place], [place] | | | | | [address] | [address] | | | | | [place] for [facility] | [phone] | | | | | and Healing, | | | | | | | | | | | | Floor [place], [place] | | | | | | [address] | | | | | | [phone] | | | +--------+ + + + [...]
--- OUTSIDE RECORDS SUMMARY | ~2020-05-26 | XMS | Encounter Summary ---
Demographics + + + | Address | [address] | | | [place] [address] | + + + | Home Phone [...] Team Providers + +------+ + | Care Knuckle Bender Name | Role | Phone | + [...] | pain, | [address] | [address] | | | | | unspecified | [address] | [address] | | | | | abdominal | Rd | [place], [place] | | | | | location | [facility] [place] | [address] | | | | | Pain of | [address] | Phone: | | | | | upper | | [phone] | | | | | abdomen | | Fax: | | | | | Complex | | [phone] | | | | | regional | [...] | | | | | | | BOLT THREADER | | | +--------+---------+ + + + + Reason for Visit + + + | Reason | Comments | + + + | Procedure | | + + + Encounter Details +--------+ + + + + | Date | Type | Department | Care Team | Description | +--------+ + + + + | 08/30/ | Telephone | [facility] | Ilene Bright, | Procedure | | 2017 | | Pain Center at | FINANCE ASSOCIATE [address] | | | | | [facility] | [place], [place] | | | | | [address] | [address] | | | | | [facility] | [phone] | | | | | and Healing, | | | | | | Building | | | | | | Floor [place], [place] | | | | | | [address] | | | | | | [phone] | | | +--------+ + + + [...]
--- OUTSIDE RECORDS SUMMARY | ~2020-05-26 | XMS | Encounter Summary ---
Demographics + + + | Address | [address] | | | [place] [address] | + + + | Home Phone | | + + + | Preferred Language | Unknown | + + + | Marital Status | Single | + + + | Cheondoism Affiliation | FMD | + + + [...] Providers + +------+ + | Care Radiology Transporter Name | Role | Phone | + [...] + + | 06/07/ | Telephone | [facility] Ilene | Ilene Bright, | Care Coordination | | 2016 | | Pain Center at | GARMENT PARTS CUTTER MACHINE [address] | | | | | [facility] | [place], [place] | | | | | [address] | [address] | | | | | [facility] | [phone] | | | | | and Healing, | | | | | | Building , | | | | | | Floor [place], [place] | | | | | | [address] | | | | | | [phone] | | | +--------+ + + + [...]
--- OUTSIDE RECORDS SUMMARY | ~2020-05-26 | XMS | Encounter Summary ---
Demographics + + + | Address | [address] | | | [place] [address] | + + + | Home Phone [...] Providers + +------+ + | Care Director Field Services Name | Role | Phone | + +------+ + | Justo Vazquez MD | PCP | | + +------+ + Encounter Details +--------+ + + + + | Date | Type | Department | Care Team | Description | +--------+ + + + + | 01/06/ | Document-Ms | [facility] [[email or web address]] | Alex Sanchez, | | | 2018 | annemily | Pain Center at | ,PhD [address] | | | | | [facility] | [address] | | | | | [address] | [place], [place] | | | | | [place] for [facility] | [address] | | | | | and Healing, | [phone] | | | | | | | | | | | Floor [place], [place] | | | | | | [address] | | | | | | [phone] | | | +--------+ + + + [...]
--- OUTSIDE RECORDS SUMMARY | ~2020-05-26 | XMS | Encounter Summary ---
Demographics + + + | Address | [address] | | | [place] [address] | + + + | Home Phone [...] Team Providers + +------+ + | Care Dancing Master Name | Role | Phone | + +------+ + | Justo Vazquez MD | PCP | | + +------+ + Encounter Details +--------+ + + + + | Date | Type | Department | Care Team | Description | +--------+ + + + + | 04/03/ | Telephone | [facility] | Alex Sanchez, | | | 2019 | | Pain Center at | ,PhD [address] | | | | | [facility] | [address] | | | | | [address] | [place], [place] | | | | | [facility] | [address] | | | | | and Healing, | [phone] | | | | | | | | | | | Floor [place], [place] | | | | | | [address] | | | | | | [phone] | | | +--------+ + + + [...]
--- OUTSIDE RECORDS SUMMARY | ~2020-05-26 | XMS | Encounter Summary ---
Demographics + + + | Address | [address] | | | [place] [address] | + + + | Home Phone [...] Team Providers + +------+ + | Care Stencil Sprayer Name | Role | Phone | + [...] | Diagnoses | Beulah | Edu Pt Ginger Farmer | | | | Therapy | CRPS | Janak Martinez MD | [address] | | | | | (complex | [address] | | | | | regional | [address] | Mailcode: | | | | | pain | Mailstop | [facility] | | | | | syndrome), | [id number] | for Health | | | | | lower limb | [place], [place] | and Healing, | | | | | Gait | [address] | Building 1 | | | | | disturbance | Phone: | [place], [place] | | | | | Muscle pain | [phone] | [address] | | | | | Procedures | Fax: | Phone: | | | | | PHYSICAL | [phone] | [phone] | | | | | THERAPY | [...] | | | | [place] | [place] [address] | syndrome), lower | | | | [address] | [phone] | limb (Primary Dx) | | | | [facility] | | | | | | and Healing, | | | | | | Building 1, | | | | | | Floor [place], [place] | | | | | | [address] | | | | | | [phone] | | | +--------+---------+ + + + [...] might be different f rom the original. [id number] BRODY FARAH Date of : 1990 Start of care: 02/14/2012 Date of onset: 02/14/2012 Referring/Attending Practitioner: Janak Riojas MD . Primary/Referral Diagnosis/ICD-9: 355.71B CRPS (complex regional pain syndrome), lower limb Insurance: [facility] [employer] [facility] Plan: BCBS OUT OF STATE Product Type: PP O Service period from: 02/14/2012 to: 08/12/2012 Number visits used/authorized: 03/25 [facility] PHYSICAL THERAPY PROGRESS NOTE SUBJECTIVE: [...] any change in their status. Guillermo Sanon [facility] Outpatient Rehabilitation Services Mailcode: Ch3p 7102 [facility], [address] [place] [address] documented in this encounter Plan of Treatment Not on filedocumented as of this encounter Procedures + +--------+ + + + | Procedure Name | Priori | Date/Time | Associated Diagnosis | Comments | | | ty | | | | + +--------+ + + + | NV MANUAL THER | Routin | 06/05/2012 | CRPS (complex | | | TECH,1+REGIONS,EA 15 | e | 5:15 PM | regional pain | | | MIN | | PDT | syndrome), lower | | | | | | limb | | + +--------+ + + + | [place] THERAPEUTIC | Routin | 06/05/2012 | CRPS [...]
--- OUTSIDE RECORDS SUMMARY | ~2020-05-26 | XMS | Encounter Summary ---
Demographics + + + | Address | [address] | | | [place] [address] | + + + | Home Phone | | + + + | Preferred Language | Unknown | + + + | Marital Status | Single | + + + | Baptist Affiliation | FMD | + + + [...] Providers + +------+ + | Care Traveling Sales Executive Name | Role | Phone | + +------+ + | Justo Vazquez MD | PCP | | + +------+ + Encounter Details +--------+ + + + + | Date | Type | Department | Care Team | Description | +--------+ + + + + | 09/25/ | Hospital | Radiology/Imaging | Aleta Rebollar MD 1191 | | | 2018 | Encounter | Lab at [facility] [address] | | | | | [address] [facility] for | [place], [place] | | | | | Health and Healing, | [address] | | | | | [address] | [phone] | | | | | Floor [place], [place] | | | | | | [address] | | | | | | [phone] | | | +--------+ + + + [...]
--- OUTSIDE RECORDS SUMMARY | ~2020-05-26 | XMS | Encounter Summary ---
Demographics + + + | Address | [address] | | | [place] [address] | + + + | Home Phone [...] Team Providers + +------+ + | Care Crisis Manager Name | Role | Phone | + +------+ + | Justo Vazquez MD | PCP | | + +------+ + Encounter Details +--------+ + + + + | Date | Type | Department | Care Team | Description | +--------+ + + + + | 10/19/ | Telephone | [facility] | Ilene Bright, | | | 2017 | | Pain Center at | HYDROLOGIC MODELER [address] | | | | | [facility] | [place], [place] | | | | | [address] | [address] | | | | | [place] for [facility] | [phone] | | | | | and Healing, | | | | | | | | | | | | Floor [place], [place] | | | | | | [address] | | | | | | [phone] | | | +--------+ + + + [...]
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
--- OUTSIDE RECORDS SUMMARY | ~2020-05-26 | XMS | Encounter Summary ---
Demographics + + + | Address | [address] | | | [place] [address] | + + + | Home Phone [...] Providers + +------+ + | Care Material Manager Name | Role | Phone | [...] | Diagnoses | Beulah | Edu Pt Continuous Improvement Manager | | | | Therapy | CRPS | Janak Martinez MD | [address] | | | | | (complex | [address] | | | | | regional | [address] | Mailcode: | | | | | pain | Mailstop | [facility] | | | | | syndrome), | [phone] | for Health | | | | | lower limb | [place], [place] | and Healing, | | | | | Gait | [address] | [address] | | | | | disturbance | Phone: | [place], [place] | | | | | Muscle pain | [phone] | [address] | | | | | Procedures | Fax: | Phone: | | | | | PHYSICAL | [phone] | [phone] | | | | | THERAPY | [...] regional pain | | | | [facility] | [place] [address] | syndrome), lower | | | | [address] | [phone] | limb (Primary Dx) | | | | [facility] | | | | | | and Healing, | Specialist, Edu | | | | | Building 1, 1st | Exercise [address] | | | | | Floor [place], [place] | [address] [place], | | | | | [address] | [place] [address] | | | | | [phone] | | | +--------+---------+ + + + [...] Progress Notes Guillermo Sanon I PT - 05/24/2012 3:28 PM PDTFormatting of this note might be different f rom the original. [id number] BRODY FARAH Date of : 1990 Start of care: 02/14/2012 Date of onset: 02/14/2012 Referring/Attending Practitioner: Janak Riojas MD . Primary/Referral Diagnosis/ICD-9: 355.71B CRPS (complex regional pain syndrome), lower limb Insurance: Payor: [facility] Plan: BCBS OUT OF STATE Product Type: PP O Service period from: 02/14/2012 to: 08/12/2012 Number visits used/authorized: 02/23 [facility] PHYSICAL THERAPY PROGRESS NOTE SUBJECTIVE: Age: [...] in their status. Guillermo Sanon MSPT [facility] Outpatient Rehabilitation Services Mailcode: Ch3p 33[address] [facility], [address] [place] [address] documented in this encounter Plan of Treatment Not on filedocumented as of this encounter Procedures + +--------+ + + + | Procedure Name | Priori | Date/Time | Associated Diagnosis | Comments | | | ty | | | | + +--------+ + + + | WI THERAPEUTIC | Routin | 05/24/2012 | CRPS (complex | | | EXERCISES | e | 6:23 PM | regional pain | | | | | PDT | syndrome), lower | | | | | | limb | | + +--------+ + + + | [place] THERAPEUTIC | Routin | 05/24/2012 | CRPS [...]
--- OUTSIDE RECORDS SUMMARY | ~2020-05-26 | XMS | Encounter Summary ---
Demographics + + + | Address | [address] | | | [place] [address] | + + + | Home Phone [...] Providers + +------+ + | Care Fire Investigation Manager Name | Role | Phone | [...] on | Pain Center at | [address] [facility] | evaluation (No | | | | [facility] | [facility] [id number] | evidence of drug | | | | [address] | [place], [place] | abuse) | | | | [facility] | [address] | | | | | and Healing, | [phone] | | | | | [facility] | | | | | | Floor [place], [place] | | | | | | [address] | | | | | | [phone] | | | +--------+ + + + [...]
--- OUTSIDE RECORDS SUMMARY | ~2020-05-26 | XMS | Encounter Summary ---
Demographics + + + | Address | [address] | | | [place] [address] | + + + | Home Phone [...] Team Providers + +------+ + | Care Graduate Research Assistant Name | Role | Phone [...] | | | | | extremity | [address] | [address] | | | | | Procedures | Phone: | Phone: | | | | | REQUEST TO | [phone] | [phone] | | | | | SURGERY | Fax: | Fax: | | | | | MEDIA EXECUTIVE | [phone] | [phone] | +--------+---------+ + + + + Encounter Details +--------+---------+ + + + | Date | Type | Department | Care Team | Description | +--------+---------+ + + + | 12/22/ | Office | [facility] Comprehensive | Ilene Bright, | Complex regional | | 2019 | Visit | Pain Center at | [employer]Y [employer]S FORMER SUPERVISOR [address] | pain syndrome type 1 | | | | [facility] | [place], [place] | of left lower | | | | [address] | [address] | extremity; S/P | | | | [place] for [facility] | [phone] | insertion of spinal | | | | and Healing, | | cord stimulator | | | | Building | | | | | | Floor [place], [place] | | | | | | [address] | | | | | | [phone] | | | +--------+---------+ + + + [...] fo r your reference. - The [place] business services representative met with you and made adjustments to your stimulator. I spoke w ith the business services representative and she is happy with your [...] call this prescription into the [facility] in [place]. It was great to see you again, documented in this encounter Progress Notes Ilene Bright, [employer] FORMER SUPERVISOR - 12/22/2018 11:00 AM PSTFormatting of this note might be different fr om the original. [facility] Return Visit Date: 12/22/2018 Chief Complaint Patient presents with Low back pain Pain in left leg History of Present Illness: Tracie Farah is a 28 year old female, whose last appoi ntment at the [facility] was 12/07/2018 following her doral [...] order to tolerate her incision site pain. 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 Goes to [employer] with a light load. Has been working at [employer], can' t work on [employer]. Has roommates. Allergies Allergen Reactions Morphine Anaphylaxis [...] GRAM-5.86 GRAM SOLUTION Take as directed by [facility] Digestive Health- 2 gallon bowel prep [...] with nausea Abdominal pain Abdominal scar neuroma [facility] CLINICAL PROTOCOL PATIENT (CLNPRO) - Implanted [...] and summary of old medical records (source: [facility], [facility] Everywhere), as summarized in the body of [...] taking for her surgical incision. The [facility] business services representative visited the patient in order to [...] ed by Collin Salomon. Ilene Childs DNP, [employer] FORMER SUPERVISOR-C Adult Pain Service /[facility] [address] [place] [address] mith, Charline Torres MA - 12/22/2018 11:00 [...]
--- OUTSIDE RECORDS SUMMARY | ~2020-05-26 | XMS | Encounter Summary ---
Demographics + + + | Address | [address] | | | [place] [address] | + + + | Home Phone [...] Team Providers + +------+ + | Care Profiling Machine Set Up Operator Name | Role | [...] | | 2017 | anned | Services [id number] | | | | | | [address] | | | | | | Mailcode: [id number] | | | | | | [facility] | | | | | | [place], [place] | | | | | | [address] | | | | | | [phone] | | | +--------+ + + + [...]
--- OUTSIDE RECORDS SUMMARY | ~2020-05-26 | XMS | Encounter Summary ---
Demographics + + + | Address | [address] | | | [place] [address] | + + + | Home Phone [...] Providers + +------+ + | Care Rn Dialysis Name | Role | Phone | + +------+ + | Justo Vazquez MD | PCP | | + +------+ + Encounter Details +--------+ + + + + | Date | Type | Department | Care Team | Description | +--------+ + + + + | 03/18/ | Telephone | Digestive Health | Kenny Gaspar MD | | | 2017 | | [place] [address] [address] | | | | | | [address] [facility] | | | | | | for Health and | | | | | | [facility], Building 2 | | | | | | [place], [place] | | | | | | [address] | | | | | | [phone] | | | +--------+ + + + [...]
--- OUTSIDE RECORDS SUMMARY | ~2020-05-26 | XMS | Encounter Summary ---
Demographics + + + | Address | [address] | | | [place] [address] | + + + | Home Phone [...] Providers + +------+ + | Care Power Distributor Name | Role | Phone | + +------+ + | Justo Vazquez MD | PCP | | + +------+ + Encounter Details +--------+ + + + + | Date | Type | Department | Care Team | Description | +--------+ + + + + | 05/12/ | MyChart | [facility] at [facility] | Ewa Melchor, | RE: Schedule change | | 2017 | Encounter | [address] | CABLE COVERER [address] | | | | | [place] for [facility] | [address] | | | | | and Healing, | [place] [address] | | | | | | [phone] | | | | | Floor [place], [place] | | | | | | [address] | | | | | | [phone] | | | +--------+ + + + [...]
--- OUTSIDE RECORDS SUMMARY | ~2020-05-26 | XMS | Encounter Summary ---
Demographics + + + | Address | [address] | | | [place] [address] | + + + | Home Phone | | + + + | Preferred Language | Unknown | + + + | Marital Status | Single | + + + | Denominational Affiliation | FMD | + + + [...] Team Providers + +------+ + | Care Foreign Service Teacher Name | Role | Phone | + +------+ + | Justo Vazquez MD | PCP | | + +------+ + Encounter Details +--------+ + + + + | Date | Type | Department | Care Team | Description | +--------+ + + + + | 03/23/ | MyChart | [facility] | Ilene Bright, | Welcome | | 2017 | Encounter | Pain Center at | CURRICULUM MANAGER [address] | | | | | [facility] | [place], [place] | | | | | [address] | [address] | | | | | [place] for [facility] | [phone] | | | | | and Healing, | | | | | | | | | | | | Floor [place], [place] | | | | | | [address] | | | | | | [phone] | | | +--------+ + + + [...]
--- OUTSIDE RECORDS SUMMARY | ~2020-05-26 | XMS | Encounter Summary ---
Demographics + + + | Address | [address] | | | [place] [address] | + + + | Home Phone | | + + + | Preferred Language | Unknown | + + + | Marital Status | Single | + + + | Latter Day Affiliation | 1073 | + + + | Race | Unknown | + + + | Ethnic Group | Unknown | + + + Author + + + | Author | [facility] | | | and Marvinana | + + + | Organization | [facility] | | | and [...] [place] | | | | | [address] | | + + + + + | Bryant Farah | ECON | Unknown | | + + + + + Care Team Providers + +------+ + | Care Apprentice Technician Name | Role | Phone | + +------+ + PCP | Unavailable | + +------+ + Encounter Details +--------+ + + + + | Date | Type | Department | Care Team | Description | +--------+ + + + + | 03/16/ | Hospital | [facility] | Conversion | Back pain | | 2013 | Encounter | CONVERSION [address] | Transaction, | | | | | [address] | Provider Unknown | | | | | [place], [place] | [phone] | | | | | [address] | | | | | | [phone] | | | +--------+ + + + [...] | Procedure Note | + + | ePte Cantrell - 07/06/2019 5:35 PM PDT This is a non-reportable procedure | | without a radiologist report and isused for image storage only | + + documented in this encounter Visit Diagnoses + + | Diagnosis | + + | Back pain Backache, unspecified | + + documented in this encounter"
--- OUTSIDE RECORDS SUMMARY | ~2020-05-26 | XMS | Encounter Summary ---
Demographics + + + | Address | [address] | | | [place] [address] | + + + | Home Phone [...] Team Providers + +------+ + | Care Oil Pumper Name | Role | Phone | + [...] | Procedures | [place] | [facility], | | | | | CONSULT TO | [address] | [place] | | | | | PAIN | | [address] | | | | | MANAGEMENT | | Phone: | | | | | | | [phone] | | | | | | | Fax: | | | | | | | [phone] | +--------+--------+ + + + + Encounter Details +--------+---------+ + + + | Date | Type | Department | Care Team | Description | +--------+---------+ + + + | 04/23/ | Office | Pain Center at [facility] | Alex Sanchez, | Complex regional | | 2019 | Visit | [address] | ,PhD [address] [facility] | pain syndrome type 1 | | | | Center for [facility] | [address] | of left lower | | | | and Healing, | [place], [place] | extremity (Primary | | | | Building | [address] | Dx); Other chronic | | | | Floor [place], [place] | [phone] | pain ; S/P insertion | | | | [address] | | of spinal cord | | | | [phone] | | stimulator | +--------+---------+ + + + Social History [...] Instructions Sonia Key - 04/23/2019 1:00 PM PDTKelly, Thank you for taking the time to see us in the [facility]. It was great to s ee you. Below is a summary of the discussion that we had today: - I will provide you with a prescription for oxycodone to use only for your monthly pain fl garo. - We reviewed and signed an opioid agreement today. - Please visit the lab on the 1st floor of [facility] to provide a urine sample for [...] fox in our notes. Alex Sanchez MD,PhD [facility] signed by Alex Sanchez MD,PhD at [...] Aleta Lam MD - 1:00 PM PDT [facility] Return Visit Date: 04/23/2019 Chief Complaint Patient presents with Pain in left leg from the knee downl Back pain where battery pack is located History of Present Illness: Tracie Farah is a 28 year old female, whose last appoi ntment at the [facility] was December 22, 2018, for [...] trouble urinating, re-developed pain, and had to gi e herself a Toradol injection. She is [...] symptoms. She notes that her primary care sunni gibson is unable to provide her with ongoing pain prescriptions. She feels like she has started to feel more of her left leg pain due to the boone that [facility] has in place. She is looking into [...] - DRG Spinal cord stimulator trial with To[employer]ieFor system (09/25/2018) with 30-40% im provement of typical pain with significant improvement in mobility and function - Left popliteal/sciatic nerve injection AND abdominal scar trigger point injection ( 018) - Spinal cord stimulator trial with ToVieFor system by Janak Riojas MD (08/02/2012) - Left L3 lumbar sympathetic block by Janak Riojas MD (03/01/2012) Opioid Risk Tool (ORT) 04/23/2019 [facility] Brief Pain Inventory: (ten= worst possible pain [...] Hemroidectomy Trial spinal cord stimulator leads 08/02/2012 [employer], Surgeon: Janak Riojas MD Cholecystectomy Appendectomy Other [...] History Social History Narrative Single. Goes to [employer] with a light load. Has been working at [employer], can' t work on [employer]. Has roommates. Allergies Allergen Reactions Morphine Anaphylaxis [...] GRAM SOLUTION Take as directed by [facility] Digestive Health- 2 gallon bowel [...] with nausea Abdominal pain Abdominal scar neuroma [facility] CLINICAL PROTOCOL PATIENT (CLNPRO) - [...] and summary of old medical records (source: [employer]), as summarized in the body of the [...] We performed DRG SCS trial with the [employer] System on 09/25/2018 which provided her with [...] ago. She has not spoken with the [employer] representatives about this. I encouraged her to [...] Key. Aleta Rebollar MD [facility] C[facility] AT [facility] 15TH FLOOR [address] [facility] Mail Code: Ch15p [place] [id number] do cumented in this encounter Plan of [...] + + + + + | [facility] | [address] | [place] [address] | | | SERVICES, CORE | GUILLERMO [...]
--- OUTSIDE RECORDS SUMMARY | ~2020-05-26 | XMS | Encounter Summary ---
Demographics + + + | Address | [address] | | | [place] [address] | + + + | Home Phone [...] Providers + +------+ + | Care Clinical Project Coordinator Name | Role | Phone [...] | | | | | Constipation | [address] | | | | | , | [address] | [place] for | | | | | unspecified | [address] | Health and | | | | | constipation | [place], [place] | Healing, | | | | | type | [address] | [address] | | | | | Abdominal | | [place], [place] | | | | | pain, | | [address] | | | | | unspecified | | Phone: | | | | | location | | [phone] | | | | | Procedures | | Fax: | | | | | CONSULT TO | | [phone] | | | | | GI PROCEDURE [...] | | 2015 | | Center at [facility] [address] | MD Melissa | Vomiting (Bile) | | | | [address] | | | | | | for Health and | | | | | | Healing, [address] | | | | | | [place], [place] | | | | | | [address] | | | | | | [phone] | | | +--------+ + + + [...]
--- OUTSIDE RECORDS SUMMARY | ~2020-05-26 | XMS | Encounter Summary ---
Demographics + + + | Address | [address] | | | [place] [address] | + + + | Home Phone [...] Team Providers + +------+ + | Care Social Science Analyst Name | Role | Phone | [...] | | Complex | Alex Alba, | [facility] [address] | | | | | regional | ,PhD [address] | [address] | | | | | pain | [address] | | | | | syndrome | [address] | [address], | | | | | type 1 of | Rd | Basement | | | | | left lower | [place], [place] | [place], [place] | | | | | extremity | [address] | [address] | | | | | Muscle pain | Phone: | Phone: | | | | | Procedures | [phone] | [phone] | | | | | NM BONE | Fax: | Fax: | | | | | &/OR JOINT | [phone] | [phone] | | | | | IMAGING | [...] | | | | | | | CA BONE | | | | | | | IMAGING, | | | | | | | LIMITED AREA | | | | | | | CA BONE | | | | | | [...] | | 2018 | Encounter | at [facility] [address] | ,PhD [address] [facility] | | | | | [address] | [address] | | | | | [address], | [place], [place] | | | | | [facility], | [address] | | | | | [place] [address] | [phone] | | | | | [phone] | | | +--------+ + + + [...]
--- OUTSIDE RECORDS SUMMARY | ~2020-05-26 | XMS | Encounter Summary ---
Demographics + + + | Address | [address] | | | [place] [address] | + + + | Home Phone [...] Team Providers + +------+ + | Care Psychologists Name | Role | Phone | + +------+ + | Justo Vazquez MD | PCP | | + +------+ + Encounter Details +--------+ + + + + | Date | Type | Department | Care Team | Description | +--------+ + + + + | 05/05/ | Documentati | [facility] | Alex Sanchez, | | | 2018 | on | Pain Center at | ,PhD [address] | | | | | [facility] | [address] | | | | | [address] | [place], [place] | | | | | [place] for [facility] | [address] | | | | | and Healing, | [phone] | | | | | | | | | | | Floor [place], [place] | | | | | | [address] | | | | | | [phone] | | | +--------+ + + + [...]
--- OUTSIDE RECORDS SUMMARY | ~2020-05-26 | XMS | Encounter Summary ---
Demographics + + + | Address | [address] | | | [place] [address] | + + + | Home Phone | | + + + | Preferred Language | Unknown | + + + | Marital Status | Single | + + + | Quaker Affiliation | 1073 | + + + | Race | Unknown | + + + | Ethnic Group | Unknown | + + + Author + + + | Author | [facility] | | | and [place] | + + + | Organization | [facility] | | | and [place] [...] [place] | | | | | [address] | | + + + + + | Bryant Farah | ERICKA | Unknown | | + + + + + Care Team Providers + +------+ + | Care Aeroplane Pilot Name | Role | Phone | + +------+ + PCP | Unavailable | + +------+ + Encounter Details +--------+ + + + + | Date | Type | Department | Care Team | Description | +--------+ + + + + | 08/11/ | Hospital | [facility] | | | | 1998 | Encounter | MED CTR XRAY [address] | | | | | | [address] | | | | | | [place] [address] | | | | | | [phone] | | | +--------+ + + + [...]
--- OUTSIDE RECORDS SUMMARY | ~2020-05-26 | XMS | Encounter Summary ---
Demographics + + + | Address | [address] | | | [place] [address] | + + + | Home Phone [...] Team Providers + +------+ + | Care Painting Instructor Name | Role | Phone | [...] | | | | regional | ,PhD [address] | | | | | | pain | [address] | | | | | | syndrome | [address] | | | | | | type 1 of | Rd | | | | | | left lower | [place], [place] | | | | | | extremity | [address] | | | | | | Other | Phone: | | | | | | chronic pain | [phone] | | | | | | S/P | Fax: | | | | | | insertion of | [phone] | | | | | | spinal [...] | | | | regional | ,PhD [address] | | | | | | pain | [address] | | | | | | syndrome | [address] | | | | | | type 1 of | Rd | | | | | | left lower | [place], [place] | | | | | | extremity | [address] | | | | | | Other | Phone: | | | | | | chronic pain | [phone] | | | | | | S/P | Fax: | | | | | | insertion of | [phone] | | | | | | spinal [...] + + | 04/26/ | Telephone | [facility] Comprehensive | Alex Sanchez, | | | 2019 | | Pain Center at | ,PhD [address] | | | | | [facility] | [address] | | | | | [address] | [place], [place] | | | | | [facility] | [address] | | | | | and Healing, | [phone] | | | | | | | | | | | Floor [place], [place] | | | | | | [address] | | | | | | [phone] | | | +--------+ + + + [...]
--- OUTSIDE RECORDS SUMMARY | ~2020-05-26 | XMS | Encounter Summary ---
Demographics + + + | Address | [address] | | | [place] [address] | + + + | Home Phone [...] Team Providers + +------+ + | Care Consulting Psychiatrist Name | Role | Phone | + [...] + + | 10/21/ | Hospital | [place] [address] [address] | [place], | | | 2015 - | Encounter | [facility] | MD Tala [address] | | | | | [address] [place] [address] | [facility] | | | 10/25/ | | [place], [place] | [place], [place] | | | 2014 | | [address] | [address] | | | | | [phone] | [phone] | | | | | | | | | | | | Clifton Childers | | | | | | MD Nhan [address] | | | | | | [facility] | | | | | | [place], [place] | | | | | | [address] | | | | | | [phone] | | | | | | | [...] child. Followed by Dr. Katy berrios at [facility] in [place], [place]. Has been on a stable regimen for [...] agreeable with our plans. Clifton Childers MD Pile Driving Technician Division of Hospital Medicine Teaching Attending I [...] child. Followed by Dr. Katy berrios at [facility] in [place], [place], has been on a stable regimen [...] and plan. Lolita Ma MD, MPH Pager #[phone] PGY-1, Anesthesiology [facility] Associated attestation - Clifton Childers MD - 10/24/2015 6:53 PM PSTGeneral Medicine Attending Progress Note Author: Clifton hCilders MD Hospital Day # 3 PCP: BJORN [...] agreeable with our plans. Clifton Childers MD Pile Driving Technician Division of Hospital Medicine Teaching Attending I [...] child. Followed by Dr. Katy berrios at [facility] in [place], [place], has been on a stable regimen for [...] and plan. Lolita Ma MD, MPH Pager #[phone] PGY-1, Anesthesiology [facility] Associated attestation - Clifton Childers MD - [...] history, primarily secondary to CPRS in the [facility] ng of complicated ankle fracture age [...] would like the patient to establish in [facility] counseling and/or CBT as an outpatient if willing. Patient/Family Goals & Expectations: Above problems discussed with the patient who understands and is agreeable with our plans. Clifton Childers MD Pile Driving Technician Division of Hospital Medicine Teaching Attending I [...] good coping mechanism Heme/Lymphatic: negative Endocrine: negative Order Puller: negative Past Medical History: History of chronic [...] for he r CRPS in the pastm [facility] pharmacy does not carry this so we are trying to arrange for her to take her home medication via pharmacy approval 5. APS will sign off but please call with questions/concerns Aba Dorman MD, PGY 3 Homeopathic Doctor [place]-2 APS Pager: [phone] BILLING INFORMATION Deferred to attending physician. Ms. [...] up at this point. Please contact APS (#[id number]) if further assistance is needed. Ulices Lopez MD BILLING INFORMATION [facility] DEPARTMENT: [phone] Place of Service:- Inpatient Date of Service: 10/23/2015 CSN: [id number] Suggested Modifier: GC - Resident Involved Suggested CPT: 15787 - Follow up visit (includes PNB) - [...] today recd call from Dr. Madrid from [facility]. She has known pt for many yea rs and suggested ketamine and propofol gtt. Updated her on APS recommendations. She will hav e her office fax her clinic records to us. Pt was seen with Dr. Childers. Milton Moreau MD PGY-3, Internal Medicine Pager [phone] Pro Edwards RN - 10/22/2015 10:06 AM PSTActing as scribe for the UR Committee Physician named below. The primary medical team for this patient and the [facility] UR Committee have agreed after furth er study that an inpatient admission was not medically necessary. This hospital stay is con verted to an outpatient stay through use of Medicare Condition Code 44. The patient was not ified of this change in writing. The providers involved in this decision were: For patient s primary medical team: [place] Childers MD For [facility] UR Committee: Kerry HARRIS [...] | | | LABORATORY | | | GRENADIAN | | | SERVICES, | | | [...] | + + + + + | [facility] | [address] | [place] [address] | | | SERVICES, CORE | PARK [...] | | + +---------+ + + | [facility] DEPARTMENT OF | | [...] | + + + | STAT | NCSU | | | LABORATORY | | | LILLIAN CROSS | + + + + + + + + | Performing | Address | City/State/Zipcode | Phone Number | | Organization | | | | + + + + + | [facility] | [address] | [place] [address] | | | SERVICESLILLIAN | [address] [...] | | | LABORATORY | | | GRENADIAN | | | SERVICES, | | | [...] the MDRD equation recommended by the | [facility] | | National Kidney [...] [facility] | [address] | [place] [address] | | | SERVICES, CORE | PARK [...] | + + + + + | [facility] | [address] | [place] [address] | | | SERVICES, CORE | GUILLERMO [...] [facility] | [address] | [place] [address] | | | SERVICES, CORE | PARK [...] | + + + + + | [facility] | [address] | [place] [address] | | | SERVICES, CORE | PARK [...] | + + + + + | [facility] | [address] | [place] [address] | | | SERVICES, CORE | [address] [...] | | | LABORATORY | | | GRENADIAN | | | SERVICES, | | | [...] [facility] | [address] | [place] [address] | | | SERVICES, CORE | PARK [...] | | | | | 1 dose, [facility] 10/23/15 at 1245 | | PM PST | | | | + +-------+ +-------+---+---+ +---+---+ | | | +---+---+ + +-------+ +--------+---+---+ | ibuprofen (MOTRIN) tablet 600 | Given | 10/25/20 | 600 mg | | | | mg 600 mg, oral, EVERY 6 HOURS, | | 15 8:05 | | | | | First dose on [facility] 10/23/15 at | | AM PST [...] | | | | | NEEDED, Starting [facility] 10/23/15 at | | | | [...]
--- OUTSIDE RECORDS SUMMARY | ~2020-05-26 | XMS | Encounter Summary ---
Demographics + + + | Address | [address] | | | [place] [address] | + + + | Home Phone [...] Providers + +------+ + | Care Insurance Job Titles Name | Role | Phone | + [...] | | | | | David Corrales [address] | | | | | | [address] | | | | | | [place], | | | | | | [address] [place] [address], | | | | | | [place] [address] | | | | | | [phone] | | | +--------+ + + + [...]
--- OUTSIDE RECORDS SUMMARY | ~2020-05-26 | XMS | Encounter Summary ---
Demographics + + + | Address | [address] | | | [place] [address] | + + + | Home Phone [...] Team Providers + +------+ + | Care President [place] Name | Role | Phone | + +------+ + | Justo Vazquez MD | PCP | | + +------+ + Encounter Details +--------+ + + + + | Date | Type | Department | Care Team | Description | +--------+ + + + + | 08/03/ | Telephone | [facility] | Alex Sanchez, | | | 2018 | | Pain Center at | ,PhD [address] | | | | | [facility] | [address] | | | | | [address] | [place], [place] | | | | | [place] for [facility] | [address] | | | | | and Healing, | [phone] | | | | | | | | | | | Floor [place], [place] | | | | | | [address] | | | | | | [phone] | | | +--------+ + + + [...]
--- OUTSIDE RECORDS SUMMARY | ~2020-05-26 | XMS | Encounter Summary ---
Demographics + + + | Address | [address] | | | [place] [address] | + + + | Home Phone [...] Team Providers + +------+ + | Care Manufacturing Engineering Director Name | Role | Phone | [...] + + | 10/21/ | Hospital | [place] [address] [address] | [place], | | | 2015 - | Encounter | [facility] | MD Tala [address] | | | | | [address] [place] [address] | [facility] | | | 10/25/ | | [place], [place] | [place], [place] | | | 2014 | | [address] | [address] | | | | | [phone] | [phone] | | | | | | | | | | | | Clifton Childers | | | | | | MD Nhan [address] [facility] | | | | | | [facility] | | | | | | [place], [place] | | | | | | [address] | | | | | | [phone] | | | | | | | [...] child. Followed by Dr. Katy berrios at [facility] in [place], [place]. Has been on a stable regimen for [...] agreeable with our plans. Clifton Childers MD Joint Finisher Division of Hospital Medicine Teaching Attending I [...] child. Followed by Dr. Katy berrios at [facility] in [place], [place], has been on a stable regimen [...] and plan. Lolita Ma MD, MPH Pager #[phone] PGY-1, Anesthesiology [facility] Associated attestation - Clifton Childers MD [...] agreeable with our plans. Clifton Childers MD Joint Finisher Division of Hospital Medicine Teaching Attending I [...] child. Followed by Dr. Katy berrios at [facility] in [place], [place], has been on a stable regimen for [...] and plan. Lolita Ma MD, MPH Pager #[phone] PGY-1, Anesthesiology [facility] Associated attestation - Clifton Childers MD - 10/23/2015 4:10 PM PSTGeneral Medicine Attending Progress Note Author: Clifton Chiledrs MD Hospital Day # 2 PCP: BJORN [...] history, primarily secondary to CPRS in the [facility] ng of complicated ankle fracture age ~12 [...] would like the patient to establish in halfway counseling and/or CBT as an outpatient if willing. Patient/Family Goals & Expectations: Above problems discussed with the patient who understands and is agreeable with our plans. Clifton Childers MD Joint Finisher Division of Hospital Medicine Teaching Attending I [...] good coping mechanism Heme/Lymphatic: negative Endocrine: negative Brand Representative: negative Past Medical History: History of chronic [...] for he r CRPS in the pastm [facility] pharmacy does not carry this so we are trying to arrange for her to take her home medication via pharmacy approval 5. APS will sign off but please call with questions/concerns Aba Dorman MD, PGY 3 Staffing Consultant [place]-2 APS Pager: [phone] BILLING INFORMATION Deferred to attending physician. Ms. [...] up at this point. Please contact APS (#[id number]) if further assistance is needed. Ulices Lopez MD BILLING INFORMATION [facility] DEPARTMENT: [id number] Place of Service:- Inpatient Date of Service: 10/23/2015 CSN: [id number] Suggested Modifier: GC - Resident Involved Suggested CPT: 39637 - Follow up visit (includes PNB) - [...] today recd call from Dr. Madrid from [facility]. She has known pt for many yea rs and suggested ketamine and propofol gtt. Updated her on APS recommendations. She will hav e her office fax her clinic records to us. Pt was seen with Dr. Childers. Milton Moreau MD PGY-3, Internal Medicine Pager [phone] Pro Edwards RN - 10/22/2015 10:06 AM PSTActing as scribe for the UR Committee Physician named below. The primary medical team for this patient and the [facility] UR Committee have agreed after furth er study that an inpatient admission was not medically necessary. This hospital stay is con verted to an outpatient stay through use of Medicare Condition Code 44. The patient was not ified of this change in writing. The providers involved in this decision were: For patient s primary medical team: Melissa Childers MD For [facility] UR Committee: Kerry HARRIS RN CM [...] | | | LABORATORY | | | THAI | | | SERVICES, | | | [...] | + + + + + | [facility] | [address] | [place] [address] | | | SERVICES, CORE | PARK [...] | | + +---------+ + + | [facility] DEPARTMENT OF | | | | [...] + + + + + | [facility] LABORATORY | [address] | [place] [address] | | | SERVICESLILLIAN | [address] [...] | | | LABORATORY | | | THAI | | | SERVICES, | | | [...] the MDRD equation recommended by the | [facility] | | National Kidney Disease Education [...] [facility] | [address] | [place] [address] | | | SERVICES, CORE | PARK [...] | + + + + + | [facility] | [address] | [place] [address] | | | SERVICES, CORE | [address] [...] [facility] | [address] | [place] [address] | | | SERVICES, CORE | PARK [...] + + + + + | [facility] | [address] | [place] [address] | | | SERVICES, CORE | PARK [...] | + + + + + | [facility] | [address] [facility] | [place] [address] | | | SERVICES, CORE | [address] [...] | | | LABORATORY | | | THAI | | | SERVICES, | | | [...] KEVIN SHAH | [address] | [place] [address] | | | SERVICES, CORE | PARK [...] | | | | | 1 dose, [facility] 10/23/15 at 1245 | | PM PST | | | | + +-------+ +-------+---+---+ +---+---+ | | | +---+---+ + +-------+ +--------+---+---+ | ibuprofen (MOTRIN) tablet 600 | Given | 10/25/20 | 600 mg | | | | mg 600 mg, oral, EVERY 6 HOURS, | | 15 8:05 | | | | | First dose on [facility] 10/23/15 at | | AM PST [...] | | | | | NEEDED, Starting [facility] 10/23/15 at | | | | [...]
--- OUTSIDE RECORDS SUMMARY | ~2020-05-26 | XMS | Encounter Summary ---
Demographics + + + | Address | [address] | | | [place] [address] | + + + | Home Phone [...] Team Providers + +------+ + | Care Plumbing Drafter Name | Role | Phone | + +------+ + | Justo Vazquez MD | PCP | | + +------+ + Encounter Details +--------+ + + + + | Date | Type | Department | Care Team | Description | +--------+ + + + + | 10/03/ | Telephone | [facility] | Ilene Bright, | | | 2017 | | Pain Center at | LASER ENGRAVER [address] | | | | | [facility] | [place], [place] | | | | | [address] | [address] | | | | | [place] for [facility] | [phone] | | | | | and Healing, | | | | | | | | | | | | Floor [place], [place] | | | | | | [address] | | | | | | [phone] | | | +--------+ + + + [...]
--- OUTSIDE RECORDS SUMMARY | ~2020-05-26 | XMS | Encounter Summary ---
Demographics + + + | Address | [address] | | | [place] [address] | + + + | Home Phone [...] Team Providers + +------+ + | Care Bologna Maker Name | Role | Phone | [...] + + | 08/07/ | Refill | [facility] Comprehensive | Alex Sanchez, | Refill Request | | 2018 | | Pain Center at | ,PhD [address] | | | | | [facility] | [address] | | | | | [address] | [place], [place] | | | | | [facility] | [address] | | | | | and Martina, | [phone] | | | | | [facility] | | | | | | Floor [place], [place] | | | | | | [address] | | | | | | [phone] | | | +--------+--------+ + + + [...]
--- OUTSIDE RECORDS SUMMARY | ~2020-05-26 | XMS | Encounter Summary ---
Demographics + + + | Address | [address] | | | [place] [address] | + + + | Home Phone [...] Team Providers + +------+ + | Care Mining Engineering Technologist Name | Role | Phone | + [...] | Orthopedics | Diagnoses | Sdrulla, | [place], | | | | | Complex | Alex Alba, | Ranjeet Odom MD | | | | | regional | ,PhD [address] | [address] | | | | | pain | [address] | Ave | | | | | syndrome | [address] | [place], [place] | | | | | type 1 of | Rd | [address] | | | | | left lower | [place], [place] | Phone: | | | | | extremity | [address] | [phone] | | | | | Procedures | Phone: | Fax: | | | | | CONSULT TO | [phone] | [phone] | | | | | ORTHOPEDICS | Fax: | | | | | | AND | [phone] | | | | | | REHABILITATI [...] | ankle results) | | | | [facility] | [address] | | | | | [address] | [place], [place] | | | | | [facility] | [address] | | | | | and Healing, | [phone] | | | | | | | | | | | Floor [place], [place] | | | | | | [address] | | | | | | [phone] | | | +--------+ + + + [...]
--- OUTSIDE RECORDS SUMMARY | ~2020-05-26 | XMS | Encounter Summary ---
Demographics + + + | Address | [address] | | | [place] [address] | + + + | Home Phone [...] Providers + +------+ + | Care Rn Utilization Management Um Name | Role | Phone | + [...] | (ortho question) | | | | [facility] | [facility] | | | | | [address] | [place], [place] | | | | | [facility] | [address] | | | | | and Healing, | [phone] | | | | | | | | | | | Floor [place], [place] | | | | | | [address] | | | | | | [phone] | | | +--------+ + + + [...]
--- OUTSIDE RECORDS SUMMARY | ~2020-05-26 | XMS | Encounter Summary ---
Demographics + + + | Address | [address] | | | [place] [address] | + + + | Home Phone [...] Team Providers + +------+ + | Care Design Engineering Intern Name | Role | Phone | [...] | | Pain | Complex | Ilene, ACCOUNTING MACHINE OPERATOR | Hanna M, | | | | Management | regional | [address] | PSY D [address] | | | | | pain | Ave | [address] | | | | | syndrome | [place], [place] | [place], [place] | | | | | type 1 of | [address] | [address] Phone: | | | | | left lower | Phone: | [phone] | | | | | extremity | [phone] | Fax: | | | | | Intractable | Fax: | [phone] | | | | | cyclical | [phone] | | | | | | vomiting [...] | | | | | | | [place] | | | | | | | PSYCHIATRIC | | | | | | | DIAGNOSTIC | | | | | | | EVAL, NO MED | | | | | | | SVCS [place] | | | | | | | PSYCH TSTNG | | | | | | | PSYCH/PHYS | | | | | | | [place] | | | | | | [...] Pain Medicine | Diagnoses | Chasity, | 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 Chh1 | | | | / Pain | Abdominal | MD Kenny | [address] | | | | Management | pain, | [address] [facility] | [facility] | | | | | unspecified | [facility] | for Health | | | | | location | Rd | and Healing, | | | | | Procedures | [place], [place] | [facility] | | | | | CONSULT TO | [address] | 1,15th Floor | | | | | PAIN | | [facility] [place] | | | | | MANAGEMENT | | [address] | | | | | | | Phone: | | | | | | | [phone] | | | | | | | Fax: | | | | | | | [phone] | +--------+--------+ + + + + Encounter Details +--------+---------+ + + + | Date | Type | Department | Care Team | Description | +--------+---------+ + + + | 04/25/ | Office | [facility] | Ilene Bright, | Abdominal pain, | | 2017 | Visit | Pain Center at | ACCOUNTING MACHINE OPERATOR [address] | unspecified location | | | | [facility] | [place], [place] | (Primary Dx); | | | | [address] | [address] | Complex regional | | | | [place] [facility] | [phone] | pain syndrome type 1 | | | | and Healing, | | of left lower | | | | Building 1,15 | | extremity; | | | | Floor [place], [place] | | Intractable cyclical | | | | [address] | | vomiting with | | | | [phone] | | nausea; | | | | [...] encounter Patient Instructions Patient Instructions Ilene Bright, ACCOUNTING MACHINE OPERATOR - 04/25/2017 1:35 PM PDTKelly, Nice to [...] Freddie Guadalupe MD [email or web address] Ilene Childs DNP, ACCOUNTING MACHINE OPERATOR-C [facility] [address] [place] [address] documented in this encounter Progress Notes Ilene Bright FNP - 04/25/2017 1:35 PM PDTFormatting of this note might be different fr om the original. Date: 04/25/2017 was referred for pain management consultation by Kenny Gaspar MD [address] [place] [address] Reason for consult: abdominal pain Chief Complaint Patient presents with Abdominal pain Back pain History of Present Illness: Tracie Farah is a 26 year old female with a history of depression, complex regional pain syndrome (left lower extremity) for this she follows with a neurologist at [facility] in [facility]. She has been stable on her [...] (works better) Just started her on Celebrex (halfway option) Intranasal ketamine Lamotrigine Memantine Ibuprofen Cymbalta 20 mg BID Cyclobenzaprine Her nonmedication treatment has not included acupuncture, etc due to limited income. She feels that the most effective treatments include: medication (toradol). lives in [place], [place] alone and with her children. She receives disability. does not have specific goals for today's appointment. 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 Goes to [employer] with a light load. Has been working at [employer], can' t work on [employer]. Has roommates. Allergies Allergen Reactions Morphine Anaphylaxis [...] by physician. Concentration is 150mg/mL. Compounded by [facility] ) LAMOTRIGINE 200 MG TABLET Take [...] GRAM SOLUTION Take as directed by [facility]- 2 gallon bowel prep POLYETHYLENE GLYCOL 3350 17 GRAM/DOSE ORAL POWDER Take 17 g by mouth once daily. PROMETHAZINE 12.5 MG TABLET Take 12.5 mg by mouth four times daily as needed for nausea/vom iting. SUCRALFATE 1 GRAM TABLET Take 1 g by mouth four times daily. Radiology/Diagnostic Tests: MR ENTEROGRAPHY ABDOMEN AND PELVIS WWO CONTRAST Order: [id number] Performed: 01/31/2017 4:34 PM Status: Final result [...] 3:50 PM X-RAY ABDOMEN 1 VIEW Order: [id number] Performed: 03/19/2017 6:52 AM Status: Final result [...] and summary of old medical records (source: [employer]), as summarized in the body of the [...] possible opioid-sparing effects (Stevie Paulino et al.C LawDeck, (8):1655-70, 2007) and evidence that it can [...] Freddie Guadalupe MD [email or web address] Central sensitization Ilene Chidls DNP, TERESA-C [facility] [address] [place] [address] Display Progress Note in MyChart: No documented [...]
--- OUTSIDE RECORDS SUMMARY | ~2020-05-26 | XMS | Encounter Summary ---
Demographics + + + | Address | [address] | | | [place] [address] | + + + | Home Phone [...] Team Providers + +------+ + | Care Flower Stripper Name | Role | Phone | + [...] | | Pain Center at | ,PhD [address] [facility] | follow-up | | | | [facility] | [address] | | | | | [address] | [place], [place] | | | | | [facility] | [address] | | | | | and Martina, | [phone] | | | | | Building | | | | | | Floor [place], [place] | | | | | | [address] | | | | | | [phone] | | | +--------+ + + + [...]
--- OUTSIDE RECORDS SUMMARY | ~2020-05-26 | XMS | Encounter Summary ---
Demographics + + + | Address | [address] | | | [place] [address] | + + + | Home Phone [...] Team Providers + +------+ + | Care Electron Beam Photo Mask Technician Name | Role | Phone | [...] | | | | | Procedures | [place], [place] | | | | | | MR | [id number] | | | | | | ENTEROGRAPHY [...] pain, | | 2017 | Visit | Center at [facility] [address] | | unspecified location | | | | [address] [facility] | | (Primary Dx) | | | | for Health and | | | | | | Healing, Building 2 | | | | | | [place], [place] | | | | | | [address] | | | | | | [phone] | | | +--------+---------+ + + + [...] encounter Patient Instructions Patient Instructions Kenny Gaspar Md - 01/11/2017 3:15 PM PSTTracie Farah It was nice to see you in clinic today. Our plan for you is: 1) have ordered external urine and blood work to be drawn during a flare - check for porphy ellen, C1 esterase, heavy metal poisoning 2) MR enterography - [phone] to schedule 3) can increase miralax to 6 times per day Return to clinic in 3 months Please feel free to call our clinic with any questions. [phone] Kenny Gaspar MD Fellow, Division of Gastroenterology [...] n their attached note. Celia Lin MD Screw Eye Assemblerpolicy officer Division of Gastroenterology & Hepatology [facility] Kenny Dodge Md - 2016 3:15 PM PST Gastroenterology Clinic Follow-Up Note 01/11/2017 CC/ID: Tracie Farah is a 26 F PMHx depression, complex regional pain syndrome(CRPS ) here for follow-up of n/v, abdominal pain INTERVAL HISTORY: Previously seen by Dr. Carbajal 08/10/16 - 10/2015 - hospitalized at [facility] for nausea/vomiting/pain -> [facility] -> CT A/P [...] oral recon soln Take as directed by [facility]- 2 gallon bowel prep 8000 mL 0 [...] Gastroenterology and Hepatology documented in this encounter Plan of Treatment [...] Note | + + | Service Account, TixAlert Res In Interface - 02/01/2017 3:50 PM [...]
--- OUTSIDE RECORDS SUMMARY | ~2020-05-26 | XMS | Encounter Summary ---
Demographics + + + | Address | [address] | | | [place] [address] | + + + | Home Phone [...] | + + +---------+ + | Patricia Cloin | ECON | Unknown | | + + +---------+ + Care Team Providers + +------+ + | Care Pyridine Recovery Operator Name | Role | Phone | + +------+ + | Justo Vazquez MD | PCP | | + +------+ + Encounter Details +--------+ + + + + | Date | Type | Department | Care Team | Description | +--------+ + + + + | 07/28/ | Documentati | [facility] | Ilene Bright, | | | 2017 | on | Pain Center at | MOUTHPIECE MAKER [address] | | | | | [facility] | [facility] [place] | | | | | [address] | [address] | | | | | [place] for [facility] | [phone] | | | | | and Healing, | | | | | | | | | | | | Floor [place], [place] | | | | | | [address] | | | | | | [phone] | | | +--------+ + + + [...]
--- OUTSIDE RECORDS SUMMARY | ~2020-05-26 | XMS | Encounter Summary ---
Demographics + + + | Address | [address] | | | [place] [address] | + + + | Home Phone [...] Team Providers + +------+ + | Care A R Collections Rep Name | Role | Phone | + +------+ + | Justo Vazquez MD | PCP | | + +------+ + Encounter Details +--------+ + + + + | Date | Type | Department | Care Team | Description | +--------+ + + + + | 04/23/ | Pharmacy | [facility] | | | | 2019 | Visit | & [facility] | | | | | | [address] | | | | | | Mailcode: [place] | | | | | | [facility] and | | | | | | Healing, Building [address] | | | | | | [place], [place] | | | | | | [address] | | | | | | [phone] | | | +--------+ + + + [...]
--- OUTSIDE RECORDS SUMMARY | ~2020-05-26 | XMS | Encounter Summary ---
Demographics + + + | Address | [address] | | | [place] [address] | + + + | Home Phone [...] Team Providers + +------+ + | Care Application Integration Architect Name | Role | Phone | [...] Oliveira | | 2011 | IP | [address] | | House - Approved | | | | Giuliana Maldonado [place], | | | | | | [place] [address] | | | +--------+ + + + [...]
--- OUTSIDE RECORDS SUMMARY | ~2020-05-26 | XMS | Encounter Summary ---
Demographics + + + | Address | [address] | | | [place] [address] | + + + | Home Phone [...] Providers + +------+ + | Care C Consultant Name | Role | Phone | [...] Pain | | 2016 | | Center [place] [address] [address] | | | | | | [address] [facility] | | | | | | for Health and | | | | | | Healing, Building 2 | | | | | | [place], [place] | | | | | | [address] | | | | | | [phone] | | | +--------+ + + + [...]
--- OUTSIDE RECORDS SUMMARY | ~2020-05-26 | XMS | Encounter Summary ---
Demographics + + + | Address | [address] | | | [place] [address] | + + + | Home Phone [...] + +------+ + | Care Blood Bank Order Control Clerk Name | Role | Phone [...] | | 2015 | | Center at [facility] [address] Junior Torres MD | Treatment Planning | | | | [address] [place] | | | | | | for Health and | | | | | | [facility], [facility] 2 | | | | | | [place], [place] | | | | | | [address] | | | | | | [phone] | | | +--------+ + + + [...]
--- OUTSIDE RECORDS SUMMARY | ~2020-05-26 | XMS | Encounter Summary ---
Demographics + + + | Address | [address] | | | [place] [address] | + + + | Home Phone [...] Team Providers + +------+ + | Care Bad Work Gatherer Name | Role | Phone | + [...] | Orthopedics | Diagnoses | Sdrulla, | [place], | | | | | Complex | Alex Alba, | Ranjeet Odom MD | | | | | regional | ,PhD [address] | [address] | | | | | pain | [address] | Ave | | | | | syndrome | [place] | [place], [place] | | | | | type 1 of | Rd | [address] | | | | | left lower | [place], [place] | Phone: | | | | | extremity | [address] | [phone] | | | | | Procedures | Phone: | Fax: | | | | | CONSULT TO | [phone] | [phone] | | | | | ORTHOPEDICS | Fax: | | | | | | AND | [phone] | | | | | | REHABILITATI [...] | ankle results) | | | | [facility] | [address] | | | | | [address] | [place], [place] | | | | | [facility] | [address] | | | | | and Healing, | [phone] | | | | | | | | | | | Floor [place], [place] | | | | | | [address] | | | | | | [phone] | | | +--------+ + + + [...]
--- OUTSIDE RECORDS SUMMARY | ~2020-05-26 | XMS | Encounter Summary ---
Demographics + + + | Address | [address] | | | [place] [address] | + + + | Home Phone [...] Team Providers + +------+ + | Care Staff Nurse Name | Role | Phone | + +------+ + | Justo Vazquez MD | PCP | | + +------+ + Encounter Details +--------+ + + + + | Date | Type | Department | Care Team | Description | +--------+ + + + + | 12/07/ | Telephone | [facility] | Alex Sanchez, | | | 2019 | | Pain Center at | ,PhD [address] | | | | | [facility] | [address] | | | | | [address] | [place], [place] | | | | | [place] [facility] | [address] | | | | | and Healing, | [phone] | | | | | | | | | | | Floor [place], [place] | | | | | | [address] | | | | | | [phone] | | | +--------+ + + + [...]
--- OUTSIDE RECORDS SUMMARY | ~2020-05-26 | XMS | Encounter Summary ---
Demographics + + + | Address | [address] | | | [place] [address] | + + + | Home Phone [...] Team Providers + +------+ + | Care Abattoir Manager Name | Role | Phone | [...] | Pain Center at | ,PhD [address] [facility] | sig) | | | | [facility] | [address] | | | | | [address] | [place], [place] | | | | | [facility] | [address] | | | | | and Martina, | [phone] | | | | | [facility] | | | | | | Floor [place], [place] | | | | | | [address] | | | | | | [phone] | | | +--------+ + + + [...]
--- OUTSIDE RECORDS SUMMARY | ~2020-05-26 | XMS | Encounter Summary ---
Demographics + + + | Address | [address] | | | [place] [address] | + + + | Home Phone [...] Team Providers + +------+ + | Care Consumer Analyst Name | Role | Phone | + +------+ + | Justo Vazquez MD | PCP | | + +------+ + Encounter Details +--------+ + + + + | Date | Type | Department | Care Team | Description | +--------+ + + + + | 05/14/ | Telephone | [facility] | Alex Sanchez, | | | 2019 | | Pain Center at | ,PhD [address] | | | | | [facility] | [address] | | | | | [address] | [place], [place] | | | | | [place] for [facility] | [address] | | | | | and Healing, | [phone] | | | | | | | | | | | Floor [place], [place] | | | | | | [address] | | | | | | [phone] | | | +--------+ + + + [...]
--- OUTSIDE RECORDS SUMMARY | ~2020-05-26 | XMS | Encounter Summary ---
Demographics + + + | Address | [address] | | | [place] [address] | + + + | Home Phone [...] Providers + +------+ + | Care Ceramic Tiler Name | Role | Phone | + [...] Pain Medicine | Diagnoses | Chasity, | [facility] | | | | / Pain | Abdominal | MD Kenny | [address] | | | | Management | pain, | [address] | [facility] | | | | | unspecified | [facility] | for Health | | | | | location | Rd | and Healing, | | | | | Procedures | [place], [place] | Building | | | | | CONSULT TO | [address] | 1,15th Floor | | | | | PAIN | | [place], [place] | | | | | MANAGEMENT | | [address] | | | | | | | Phone: | | | | | | | [phone] | | | | | | | Fax: | | | | | | | [phone] | +--------+--------+ + + + + Reason [...] Abdominal | | 2016 | | Center [place] [address] [address] | | pain | | | | [address] [facility] | | | | | | for Health and | | | | | | Healing, [facility] 2 | | | | | | [place], [place] | | | | | | [address] | | | | | | [phone] | | | +--------+ + + + [...]
--- OUTSIDE RECORDS SUMMARY | ~2020-05-26 | XMS | Encounter Summary ---
Demographics + + + | Address | [address] | | | [place] [address] | + + + | Home Phone [...] Team Providers + +------+ + | Care Workers Compensation Administrator Name | Role | Phone | [...] Center at [facility] [address] | | Review | | | | S [facility] | | | | | | for Health and | | | | | | [facility], [facility] 2 | | | | | | [place], [place] | | | | | | [address] | | | | | | [phone] | | | +--------+ + + + [...]
--- OUTSIDE RECORDS SUMMARY | ~2020-05-26 | XMS | Encounter Summary ---
Demographics + + + | Address | [address] | | | [place] [address] | + + + | Home Phone [...] Team Providers + +------+ + | Care Collections Officer Name | Role | Phone | [...] Oliveira | | 2011 | IP | [address] | | House - Approved | | | | [place]don[place], | | | | | | [place] [address] | | | +--------+ + + + [...]
--- OUTSIDE RECORDS SUMMARY | ~2020-05-26 | XMS | Encounter Summary ---
Demographics + + + | Address | [address] | | | [place] [address] | + + + | Home Phone [...] Team Providers + +------+ + | Care Logistics Operations Manager Name | Role | Phone | [...] (plan of care) | | | | [facility] | [address] | | | | | [address] | [place], [place] | | | | | [facility] | [address] | | | | | and Healing, | [phone] | | | | | | | | | | | Floor [place], [place] | | | | | | [address] | | | | | | [phone] | | | +--------+ + + + [...]
--- OUTSIDE RECORDS SUMMARY | ~2020-05-26 | XMS | Encounter Summary ---
Demographics + + + | Address | [address] | | | [place] [address] | + + + | Home Phone [...] Team Providers + +------+ + | Care Yarder Puncher Name | Role | Phone | [...] Rd | | | | | | [place], [place] | | | | | | [address] | | | +--------+ + + + [...]
--- OUTSIDE RECORDS SUMMARY | ~2020-05-26 | XMS | Encounter Summary ---
Demographics + + + | Address | [address] | | | [place] [address] | + + + | Home Phone [...] Providers + +------+ + | Care Counter Supply Worker Name | Role | Phone | [...] Rd | | | | | | [place], [place] | | | | | | [address] | | | +--------+ + + + [...]
--- OUTSIDE RECORDS SUMMARY | ~2020-05-26 | XMS | Encounter Summary ---
Demographics + + + | Address | [address] | | | [place] [address] | + + + | Home Phone [...] Providers + +------+ + | Care Life Insurance Salesperson Name | Role | Phone | + [...] 2017 | | Center at [facility] [address] | | Review | | | | [facility] | | | | | | for Health and | | | | | | [facility], [facility] 2 | | | | | | [place], [place] | | | | | | [address] | | | | | | [phone] | | | +--------+ + + + [...]
--- OUTSIDE RECORDS SUMMARY | ~2020-05-26 | XMS | Encounter Summary ---
Demographics + + + | Address | [address] | | | [place] [address] | + + + | Home Phone [...] Team Providers + +------+ + | Care Automotive Worker Foreman Name | Role | Phone | [...] Closed | | Orthopedics | Diagnoses | [place], | [facility] | | | | | Adjustment | Ranjeet Odom MD | Chh1 [address] | | | | | disorder, | [address] | [address] | | | | | unspecified | Ave | Center for | | | | | type | [facility] [place] | Health and | | | | | Procedures | [address] | Healing, | | | | | CONSULT TO | Phone: | Building 1, | | | | | BEHAVIORAL | [phone] | 12th Floor | | | | | HEALTH/PSYCH | Fax: | [place], [place] | | | | | CHRISTINA - | [phone] | [address] | | | | | ADULT | | Phone: | | | | | | | [phone] | | | | | | | Fax: | | | | | | | [phone] | +--------+--------+ + + + + Reason [...] | regional | ,PhD [address] | [address] | | | | | pain | [address] | Ave | | | | | syndrome | [address] | [place], [place] | | | | | type 1 of | Rd | [address] | | | | | left lower | [place], [place] | Phone: | | | | | extremity | [address] | [phone] | | | | | Procedures | Phone: | Fax: | | | | | CONSULT TO | [phone] | [phone] | | | | | ORTHOPEDICS | Fax: | | | | | | AND | [phone] | | | | | | REHABILITATI [...] | 2018 | Visit | [facility] at [facility] | [address] | (Primary Dx); Left | | | | for Health and | [place], [place] | ankle pain, | | | | Healing [address] | [address] | unspecified | | | | [facility] for | [phone] | chronicity; | | | | Health and Healing, | | Adjustment disorder, | | | | Building | | unspecified type | | | | Floor [place], [place] | | | | | | [address] | | | | | | [phone] | | | +--------+---------+ + + + [...] Hemroidectomy Trial spinal cord stimulator leads 08/02/2012 [facility], Surgeon: Janak Riojas MD Cholecystectomy Appendectomy [...] by physician. Concentration is 150mg/mL. Compounded by [employer] ([phone]) levonorgestrel (MIRENA) 20 mcg/24 hr Intrauterine IUD [...] oral recon soln Take as directed by [facility]- 2 gallon bowel prep polyethylene glycol [...] the pertinent parts of the [facility] and personally formulated the plan with the [...] become. f/u open ended Ranjeet Amanda M.D. Casino Cage Manager Foot and Ankle Surgery Department of Orthopedics & Rehabilitation [facility] [phone] >60 mins face to face consultation was [...]
--- OUTSIDE RECORDS SUMMARY | ~2020-05-26 | XMS | Encounter Summary ---
Demographics + + + | Address | [address] | | | [place] [address] | + + + | Home Phone [...] Team Providers + +------+ + | Care Honeycomb Decapper Name | Role | Phone | + [...] + + | 12/26/ | Refill | [facility] Comprehensive | Alex Sanchez, | Refill Request | | 2019 | | Pain Center at | ,PhD [address] [facility] | | | | | [facility] | [address] | | | | | [address] | [place], [place] | | | | | [facility] | [address] | | | | | and Martina, | [phone] | | | | | [facility] | | | | | | Floor [place], [place] | | | | | | [address] | | | | | | [phone] | | | +--------+--------+ + + + [...]
--- OUTSIDE RECORDS SUMMARY | ~2020-05-26 | XMS | Encounter Summary ---
Demographics + + + | Address | [address] | | | [place] [address] | + + + | Home Phone [...] Team Providers + +------+ + | Care Box Car Checker Name | Role | Phone | [...] | | syndrome | [address] | [facility] | | | | | type 1 of | Rd | Rd [place], | | | | | left lower | [place], [place] | [place] | | | | | extremity | [address] | [address] | | | | | Procedures | Phone: | Phone: | | | | | REQUEST TO | [phone] | [phone] | | | | | SURGERY | Fax: | Fax: | | | | | [place] [place] | [phone] | [phone] | +--------+---------+ + + + + Encounter Details +--------+ + + + + | Date | Type | Department | Care Team | Description | +--------+ + + + + | 12/ | Procedure | Pain Center at [facility] | Alex Sanchez, | Foot pain; Knee | | 2018 | | [address] | ,PhD [address] | pain; Procedure | | | | [facility] | [facility] | | | | | and Healing, | [place], [place] | | | | | | [address] | | | | | Floor [place], [place] | [phone] | | | | | [address] | | | | | | [phone] | | | +--------+ + + + [...] Sonia Key - 09/25/2018 1:00 PM PST [facility] Patient Instructions - Post Interventional Procedure Date: 09/25/2018 Name: Tracie Farah Date of : 1990 Procedure Performed: SCS DRG TRIAL LUMBAR [facility] Procedure Provider: Alex Sanchez MD,PhD If you have any problems you believe are associated with your procedure tonight, Please call the Hospital Special Inspector, and ask for the Pain Management Consu ltant. If you have problems or questions between 9:00 am and 4:00 pm, Please call the [facility] Nurse Triage Line, . If you [...] symptoms, dressing, SCS function, or chills. During SOCIAL SERVICES MANAGER open ho urs, call the [facility] ([phone]), after hours call the coater operator insulation board at [facility] ([phone]) and ask for the Adult Pain Service solar electric practitioner. Identify yourself as a Comprehensive Pain Center [...] to the pat ient. Aleta Rebollar MD [facility] Comprehensive Pain Center Hrjzehprmgcpli signed by Sonia Key at 09/25/2018 3:07 PM PST documented in this encounter Progress Notes Alex Sanchez MD,PhD - 09/25/2018 1:00 PM PSTI was present for the entire procedure ( DRG SCS trial) and all bocanegra elements of this visit. I reviewed the documentation of the othe r [facility] providers and concur with Dr. Rebollar's findings. I edited his note. Alex Sanchez MD,PhD Geochemical Laboratory Technician Anesthesiology and Pain Management [facility] [place] onacZain bonner RN - 09/25/2018 1:00 PM [...] by physician. Concentration is 150mg/mL. Compounded by [facility] ) KETOROLAC IM Inject into the muscle [...] GRAM-5.86 GRAM SOLUTION Take as directed by [facility] Digestive [facility]- 2 gallon bowel prep POLYETHYLENE GLYCOL [...] PRE-SEDATION: Date: September 25, 2018 Tracie Farah [id number] 1990 ALLERGIES: Morphine Previous reaction to Sedation/Analgesia: [...] NOTES: Date: September 25, 2018 Tracie Donaldson [facility] [id number] 1990 ALLERGIES: Morphine Previous reaction to Sedation/Analgesia: [...] VS: See Sedation Flow Sheet. Tracie Donaldson [facility] [id number] 1990, presents to clinic for: Procedure: bilateral [...] OPERATIVE NOTE Date: September 25, 2018 Location: [facility] Procedure Room Tracie Donaldson [facility] [id number] :1990, presents to clinic for: PROCEDURE: DRG Spinal Cord Stimuation Trial with [employer] system LEVEL/LATERALITY: left L4, L5 PRE-OPERATIVE DIAGNOSIS: G90.522 Complex regional pain syndrome type 1 of left lower extremity POST-OPERATIVE DIAGNOSIS: G90.522 Complex regional pain syndrome type 1 of left lower extremity ATTENDING PHYSICIAN: Alex Sanchez MD,PhD DETECTIVE AND INTELLIGENCE ANALYST: Fellow Aleta Rebollar ANESTHESIA: Sedation delivered by [...] sedation. Ms. Farah was escorted to the [facility] Procedure R oom, where she was [...] patient. Ms. Farah was transported to the [facility] [place] post-procedure recovery area where she made an uneventful recovery. Programming was performed in the PACU with aid of the device electronics parts sales representative and Ms. Susie faust was sent home with a few programs . This was a unilateral procedure. Alex Sanchez MD,PhD was present for the entire procedure. Images were saved, and sent to [facility]. Ms. Farah was transported to the [facility] [place] post-procedure recovery area. She had an uneventful recovery. Before the procedure, Ms. Farah's pain was 7/10. After the procedure Ms. Farah's pain was 7/10. I, Sonia Key, am functioning as a scribe for Aleta Rebollar MD. I have reviewed and verified the above scribed note of my visit with this patient as record ed by Sonia Key. Aleta Rebollar MD [facility] 15TH FLOOR [address] [facility] Mail Code: [address] [address] documented in t his encounter Plan of Treatment Not on filedocumented as of this encounter Procedures + +--------+ + + + | Procedure Name | Priori | Date/Time | Associated Diagnosis | Comments | | | ty | | | | + +--------+ + + + | DC MOD SEDATION | Routin | 09/25/2018 | Complex regional | | | >=5YRS SAME MD/QUAL | e | 7:31 PM | pain syndrome type 1 | | | PROV; INIT 15 MIN | | PST | of left lower | | | | | | extremity | | + +--------+ + + + | DC PERCUT IMPLNT | Routin | 09/25/2018 | [...]
--- OUTSIDE RECORDS SUMMARY | ~2020-05-26 | XMS | Encounter Summary ---
Demographics + + + | Address | [address] | | | [place] [address] | + + + | Home Phone [...] Providers + +------+ + | Care Emergency Veterinary Assistant Name | Role | Phone | [...] | 2015 | Encounter | Center at [facility] [address] | MD Melissa | | | | | [address] [facility] | | | | | | for Health and | | | | | | Healing, Building 2 | | | | | | [place], [place] | | | | | | [address] | | | | | | [phone] | | | +--------+ + + + [...]
--- OUTSIDE RECORDS SUMMARY | ~2020-05-26 | XMS | Encounter Summary ---
Demographics + + + | Address | [address] | | | [place] [address] | + + + | Home Phone [...] Providers + +------+ + | Care Museum Attendant Name | Role | Phone | + +------+ + | Justo Vazquez MD | PCP | | + +------+ + Encounter Details +--------+ + + + + | Date | Type | Department | Care Team | Description | +--------+ + + + + | 01/02/ | Telephone | [facility] | Ilene Bright, | | | 2019 | | Pain Center at | SUPERVISOR PASTE MIXING [address] | | | | | [facility] | [place], [place] | | | | | [address] | [address] | | | | | [place] for [facility] | [phone] | | | | | and Healing, | | | | | | | | | | | | Floor [place], [place] | | | | | | [address] | | | | | | [phone] | | | +--------+ + + + [...]
--- OUTSIDE RECORDS SUMMARY | ~2020-05-26 | XMS | Encounter Summary ---
Demographics + + + | Address | [address] | | | [place] [address] | + + + | Home Phone [...] Team Providers + +------+ + | Care Special Education Aide Name | Role | Phone | + +------+ + | Justo Vazquez MD | PCP | | + +------+ + Encounter Details +--------+ + + + + | Date | Type | Department | Care Team | Description | +--------+ + + + + | 08/07/ | Telephone | [facility] | Alex Sanchez, | | | 2019 | | Pain Center at | ,PhD [address] | | | | | [facility] | [address] | | | | | [address] | [place], [place] | | | | | [place] for [facility] | [address] | | | | | and Healing, | [phone] | | | | | | | | | | | Floor [place], [place] | | | | | | [address] | | | | | | [phone] | | | +--------+ + + + [...]
--- OUTSIDE RECORDS SUMMARY | ~2020-05-26 | XMS | Encounter Summary ---
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 | FAMILY | [address] | | | | | of lower | MEDICINE P | [address] | | | | | limb | [address] | [place], [place] | | | | | | [place], | [address] | | | | | | [place] [address] | Phone: | | | | | | Phone: | [phone] | | | | | | [phone] | Fax: | | | | | | Fax: | [phone] | | | | | | [phone] | | +--------+--------+ + + + + Encounter Details +--------+---------+ + + + | Date | Type | Department | Care Team | Description | +--------+---------+ + + + | 09/04/ | Office | [facility] Comprehensive | Dale Cantu, | CRPS (complex | | 2011 | Visit | Pain Center at | [address] [facility] | regional pain | | | | [facility] | [facility] [address] | syndrome), lower | | | | [address] | [place], [place] | limb; Gait | | | | [place] for [facility] | [address] | disturbance; Sleep | | | | and Healing, | [phone] | disturbance, | | | | Building | | unspecified; | | | | Floor [place], [place] | | Adjustment reaction | | | | [address] | | | | | | [phone] | | | +--------+---------+ + + + [...] CRPS patients (Loretta Rousseau et al. Katrina Take Away Man Med. 2010;152:152-158) . Bisphosphonate trial. Typically, I [...] Abraham MD - 09/04/2012 7:45 AM PDT [facility] Pain Center Return Visit with Dr. [...] a pain drawing which I reviewed. [facility] Brief Pain Inventory: (ten= worst [...] Hemroidectomy Trial spinal cord stimulator leads 08/02/2012 [facility], Surgeon: Dale Cantu MD [...] The Review of Systems obtained by the [facility] was reviewed. Additional Review of Systems sean [...] a potential benefit in CRP S patients (Farntz N; Ari N; Anahy S; Wes A; [...] of Pain: 13(1):17-21, 2008). DALE CANTU MD Game Author, Comprehensive Pain Center Analysis Lead, Pain Medicine Professor, Anesthesiology & Perioperative Medicine [...]
--- OUTSIDE RECORDS SUMMARY | ~2020-05-26 | XMS | Encounter Summary ---
Demographics + + + | Address | [address] | | | [place] [address] | + + + | Home Phone [...] Team Providers + +------+ + | Care Ham Clerk Name | Role | Phone | [...] [facility] | [address] | | | | | [address] | [place], [place] | | | | | [place] for [facility] | [address] | | | | | and Healing, | [phone] | | | | | | | | | | | Floor [place], [place] | | | | | | [address] | | | | | | [phone] | | | +--------+ + + + [...]
--- OUTSIDE RECORDS SUMMARY | ~2020-05-26 | XMS | Encounter Summary ---
Demographics + + + | Address | [address] | | | [place] [address] | + + + | Home Phone [...] Team Providers + +------+ + | Care Courtesy Bus Driver Name | Role | Phone | [...] Procedures | [place] | [facility], | | | | | CONSULT TO | [address] | [place] | | | | | PAIN | | [address] | | | | | MANAGEMENT | | Phone: | | | | | | | [phone] | | | | | | | Fax: | | | | | | | [phone] | +--------+--------+ + + + + Encounter Details +--------+---------+ + + + | Date | Type | Department | Care Team | Description | +--------+---------+ + + + | 04/23/ | Office | [facility] at [facility] | Alex Sanchez, | Complex regional | | 2019 | Visit | [address] | ,PhD [address] [facility] | pain syndrome type 1 | | | | Center for [facility] | [facility] | of left lower | | | | and Healing, | [place], [place] | extremity (Primary | | | | Building | [address] | Dx); Other chronic | | | | Floor [place], [place] | [phone] | pain ; S/P insertion | | | | [address] | | of spinal cord | | | | [phone] | | stimulator | +--------+---------+ + + [...] the lab on the 1st floor of [facility] to provide a urine sample for a urine drug screen in accordance to our agreement. - To better manage your pain flares, you may consider using gabapentin on an as needed basi s. documented in this encounter Progress Notes Aelx Sanchez MD,PhD - 04/23/2019 1:00 PM PDTI [...] fox in our notes. Alex Sanchez MD,PhD [facility] Center[facility]ron[facility] signed by Alex Sanchez MD,PhD [...] Aleta Lam MD - 1:00 PM PDT [facility] Pain Center Return Visit Date: 04/23/2019 Chief Complaint Patient presents with Pain in left leg from the knee downl Back pain where battery pack is located History of Present Illness: Tracie Farah is a 28 year old female, whose last appoi ntment at the [facility] was December 22, 2018, [...] leg pain due to the boone that [facility] has in place. She is looking [...] - DRG Spinal cord stimulator trial with [employer] system (09/25/2018) with 30-40% im provement of typical pain with significant improvement in mobility and function - Left popliteal/sciatic nerve injection AND abdominal scar trigger point injection ( 018) - Spinal cord stimulator trial with Connotate system by Janak Riojas MD (08/02/2012) - Left L3 lumbar sympathetic block by Janak Riojas MD (03/01/2012) Opioid Risk Tool (ORT) 04/23/2019 [facility] Brief Pain Inventory: (ten= [...] Hemroidectomy Trial spinal cord stimulator leads 08/02/2012 [facility], Surgeon: Janak Riojas MD Cholecystectomy Appendectomy Other [...] History Social History Narrative Single. Goes to [employer] with a light load. Has been working at [employer], can' t work on [employer]. Has roommates. Allergies Allergen Reactions Morphine Anaphylaxis [...] GRAM-5.86 GRAM SOLUTION Take as directed by [facility] Digestive Health- 2 gallon bowel prep POLYETHYLENE [...] with nausea Abdominal pain Abdominal scar neuroma [facility] CLINICAL PROTOCOL PATIENT (CLNPRO) - Implanted Spinal [...] and summary of old medical records (source: [employer]), as summarized in the body of the [...] We performed DRG SCS trial with the [employer] System on 09/25/2018 which provided her with [...] ago. She has not spoken with the [employer] representatives about this. I encouraged her to [...] Key. Aleta Rebollar MD [facility] 15TH FLO[address] [facility] Mail Code: [id number] [place] [phone] do cumented in this encounter Plan of [...] + + + + + | [facility] | [address] | [address] | | | SERVICES, CORE | GUILLERMO [...]
--- OUTSIDE RECORDS SUMMARY | ~2020-05-26 | XMS | Encounter Summary ---
Demographics + + + | Address | [address] | | | [place] [address] | + + + | Home Phone [...] Team Providers + +------+ + | Care Bowling Ball Mold Assembler Name | Role | Phone | + +------+ + | Justo Vazquez MD | PCP | | + +------+ + Encounter Details +--------+ + + + + | Date | Type | Department | Care Team | Description | +--------+ + + + + | 08/03/ | Telephone | [facility] | Alex Sanchez, | | | 2018 | | Pain Center at | ,PhD [address] | | | | | [facility] | [address] | | | | | [address] | [place], [place] | | | | | [place] for [facility] | [address] | | | | | and Healing, | [phone] | | | | | | | | | | | Floor [place], [place] | | | | | | [address] | | | | | | [phone] | | | +--------+ + + + [...]
--- OUTSIDE RECORDS SUMMARY | ~2020-05-26 | XMS | Encounter Summary ---
Demographics + + + | Address | [address] | | | [place] [address] | + + + | Home Phone [...] Team Providers + +------+ + | Care Protection Consultant Name | Role | Phone | [...] | | | sympathetic | [place] | [address]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 | FAMILY | [address] | | | | | of lower | MEDICINE P | [address] | | | | | limb | [address] | [place], [place] | | | | | | [place], | [address] | | | | | | [place] [address] | Phone: | | | | | | Phone: | [phone] | | | | | | [phone] | Fax: | | | | | | Fax: | [phone] | | | | | | [phone] | | +--------+--------+ + + + + Encounter Details +--------+---------+ + + + | Date | Type | Department | Care Team | Description | +--------+---------+ + + + | 03/17/ | Office | [facility] | Dale Cantu, | CRPS (complex | | 2011 | Visit | Pain Center at | [address] | regional pain | | | | [place] | [address] [id number] | syndrome), lower | | | | [address] | [place], [place] | limb; Adjustment | | | | [facility] | [address] | reaction; Muscle | | | | and Healing, | [phone] | pain; Gait | | | | [facility] | | disturbance | | | | Floor [place], [place] | | | | | | [address] | | | | | | [phone] | | | +--------+---------+ + + + [...] is not relieved after this time period, asepn villatoro your doctor's directions on how to [...] Pain: After Your Visit", log into your [place] nt at [email or web address]. You can enter G828 in the Trak Library" search box. Not on Curate.Ust? Review the MyChart section of your After Visit Summary for directions on liz rea to sign up. [id number] Neofect. Care instructions adapted under license by [facility]. This care instruction is for use with your licensed healthcar e professional. If you have questions about a medical condition or this instruction, always ask your healthcare professional. Neofect disclaims any warranty or liabili ty for your use of this information. Content Version: 9.2.794975; Last Revised: April 29, 2011 Nortriptyline for [...] Pain: After Your Visit", log into your [place] nt at [email or web address]. You can enter G828 in the Benaissance" search box. Not on Cotera? Review the [employer]hart section of your After Visit Summary for directions on ho w to sign up. [phone] Neofect. Care instructions adapted under license by [facility] & [employer]. This care instruction is for use with your licensed healthcar e professional. If you have questions about a medical condition or this instruction, always ask your healthcare professional. Neofect disclaims any warranty or liabili ty for your use of this information. Content Version: 9.2.681338; Last Revised: April 29, 2011 documented in [...] documented in our notes. DALE CANTU MD Quality Control Head, [facility] Wire Photo Operator News, Pain Medicine Professor, Anesthesiology & Perioperative Medicine NAMollMarquis manriquez MD - 03/17/2012 3:42 PM PDT [facility] Return Visit with Dr. [...] her pain. She continues to take 6-8 [place] per day and 600 mg of ibuprofen [...] and a pain drawing which I reviewed. [facility] Brief Pain Inventory: (ten= worst possible [...] The Review of Systems obtained by the [facility] was reviewed. Additional Review of [...] you require any medication refills today? 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 Bones, Joints, and Muscles: cramps [...]
--- OUTSIDE RECORDS SUMMARY | ~2020-05-26 | XMS | Encounter Summary ---
Demographics + + + | Address | [address] | | | [place] [address] | + + + | Home Phone [...] + +------+ + | Care Senior Technical Trainer Name | Role | Phone | + +------+ + | Justo Vazquez MD | PCP | | + +------+ + Encounter Details +--------+ + + + + | Date | Type | Department | Care Team | Description | +--------+ + + + + | 12/07/ | Pack Master | [facility] at [facility] | Ava Carbajal | | | 2016 | | [place] | | | | | [facility] for | | | | | | Health and Healing, | | | | | | Building [address] | | | | | | [place], [place] | | | | | | [address] | | | | | | [phone] | | | +--------+ + + + [...]
--- OUTSIDE RECORDS SUMMARY | ~2020-05-26 | XMS | Encounter Summary ---
Demographics + + + | Address | [address] | | | [place] [address] | + + + | Home Phone [...] Team Providers + +------+ + | Care Funeral Home Attendant Name | Role | Phone | [...] | | [facility] | [place], [place] | | | | | Health and Healing, | [address] | | | | | | [phone] | | | | | [place], [place] | | | | | | [address] | | | | | | [phone] | | | +--------+ + + + [...]
--- OUTSIDE RECORDS SUMMARY | ~2020-05-26 | XMS | Encounter Summary ---
Demographics + + + | Address | [address] | | | [place] [address] | + + + | Home Phone [...] Providers + +------+ + | Care Foreign Exchange Clerk Name | Role | Phone | [...] 2016 | | Center at [facility] [address] | [address] | | | | | [address] [place] | [address] | | | | | [facility] and | [place], [place] | | | | | [facility] 2 | [address] | | | | | [place], [place] | [phone] | | | | | [address] | | | | | | [phone] | | | +--------+ + + + [...]
--- OUTSIDE RECORDS SUMMARY | ~2020-05-26 | XMS | Encounter Summary ---
Demographics + + + | Address | [address] | | | [place] [address] | + + + | Home Phone [...] Team Providers + +------+ + | Care Recreational Facilities Motel Manager Name | Role | Phone | [...] + + | 08/08/ | Emergency | [facility] Emergency | Mable Villarreal MD | | | 2015 | | Department [address] | [address] [facility] [address] | | | | | [address] | [address] | | | | | [facility] | [place], [place] | | | | | [place] | [address] | | | | | [address] | [phone] | | | | | [phone] | | | | | | | [...] about "Gastroparesis: Care Instructions", log into your Hoolux [employer] account at [email or web address]. You can enter M106 in the Commercial Mortgage Capital" search box. Not on Hoolux Medical? Review the H[employer] Medical section of your After Visit Summary for directions on ho w to sign up. [phone] [email or web address]. Care instructions adapted under license by [facility] & Science [place]. This care instruction is for use with your licensed healthcar e professional. If you have questions about a medical condition or this instruction, always ask your healthcare professional. [email or web address] disclaims any warranty or liabili ty for your use of this information. Content Version: 11.0.947335; Current as of: October 03, 2015 documented [...] | | | LABORATORY | | | [place]AN | | | SERVICES, | | | [...] | + + + + + | [facility] | [address] | [place] [address] | | | SERVICES, CORE | GUILLERMO [...] DEPT OF | [address] | [place], [place] | | | CARDIOLOGY | [address] | [address] | | + + + + + [...] | + + + + + | [facility] | [address] | [place] [address] | | | SERVICES, CORE | [address] [...] [facility] | [address] | [place] [address] | | | SERVICES, LILLIAN | GUILLERMO [...] KEVIN SHAH | [address] | [place] [address] | | | SERVICES, CORE | PARK [...] | + + + + + | [facility] | [address] | [place] [address] | | | [facility] | [address] | [...] organisms may result in clinically misleading | [facility] [place] | | information due to the low numbers and /or mixture of organisms | | | present. Recollection is suggested if clinically indicated. | | + + + + + + + + | Performing | Address | City/State/Zipcode | Phone Number | | Organization | | | | + + + + + | [facility] | [address] | [place] [address] | | | [place] | | | | + + + [...] [facility] | [address] | [place] [address] | | | SERVICES, CORE | PARK [...] | + + + + + | [facility] | [address] | [place] [address] | | | SERVICES, CORE | [address] | | | + + + + + LIPASE, PLASMA (08/08/2016 2:22 PM PDT) + +---------+ + + + | Component | Value | Ref Range | Performed | Pathologist | | | | | At | Signature | + +---------+ + + + | LIPASE | 116 (L) | 152 - 353 U/L | [facility] | | | (LAB) | | [...] | + + + + + | [facility] | [address] [facility] [address] | [place] [address] | | | SERVICES, CORE | [address] [...] | | | LABORATORY | | | [place]ING[place]AN | | | SERVICES, | | | | | | CORE | | + + + + + + | EGFR NON | >60 | >60 mL/min | [facility] | | | -EKY | | | LABORATORY | | | [...] | + + + + + | [facility] | [address] | [place] [address] | | | SERVICES, CORE | [address] | | | + + + + + ED INFORMATION EXCHANGE (08/08/2016 12:21 PM PDT) + + + + + + | Component | Value | Ref Range | Performed | Pathologist | | | | | At | Signature | + + + + + + | [facility] | [id number] | | COLLECTIVE | | | | [id number] | | MEDICAL | | | | [...] | | 08/08/2016 12:21 [facility] and | | | [facility] [place] Emergency [address]. abd pain | | | 08/04/2016 03:50 [facility] | | | [place] Emergency ABD PAIN,VOMITING 06/26/2016 22:44 | | | [facility] [place] | | | Emergency -Acquired absence of other specified parts of | | | | | | digestive | | | tract | | | | | | -Gastroparesis | | | | | | -Unspecified abdominal pain | | | | | | -Gastro-esophageal reflux disease without | | | esophagitis | | | | | | -Other intermediate manager (current) drug therapy 06/22/2016 17:35 | [facility] [place] [facility] | Emergency -abd pain, "I have gastroparesis", since , seen | | | | | | at St | | | [facility] yesterday. has been to the er | | | | | | several times | | | | | | -Abdominal Pain | | | | | | -Gastroparesis 06/19/2016 | | | 04:51 [facility] [place] | | | [place] Emergency -Gastroparesis | | | | | | -Unspecified abdominal pain | | | | | | -Other intermediate manager | | | (current) drug therapy | | | | | | -Acquired absence of other specified parts of | | | | | | digestive tract | | | 06/18/2016 07:18 [facility] | | | [place] Emergency [...] Location ------ --------- 1 | | | [facility] 1 | | | [facility] 8 [facility] 10 | | | Total Note: [...] COLLECTIVE MEDICAL | [address] | [place], [place] | [phone] | | TECHNOLOGIES | [address] | [address] | | + + + + + [...]
--- OUTSIDE RECORDS SUMMARY | ~2020-05-26 | XMS | Encounter Summary ---
Demographics + + + | Address | [address] | | | [place] [address] | + + + | Home Phone [...] Team Providers + +------+ + | Care Brick Chimney Supervisor Name | Role | Phone | [...] | | [facility] for | [place], [place] | | | | | Health and Healing, | [address] | | | | | | [phone] | | | | | [place], [place] | | | | | | [address] | | | | | | [phone] | | | +--------+ + + + [...]
--- OUTSIDE RECORDS SUMMARY | ~2020-05-26 | XMS | Encounter Summary ---
Demographics + + + | Address | [address] | | | [place] [address] | + + + | Home Phone [...] Team Providers + +------+ + | Care Tie Up Worker Name | Role | Phone | [...] | | | | | syndrome | [facility] | [facility] | | | | | type [address] of | [address] | Rd [place], | | | | | left lower | [facility], [place] | [place] | | | | | extremity | [address] | [address] | | | | | Muscle pain | Phone: | Phone: | | | | | Procedures | [phone] | [phone] | | | | | REQUEST TO | Fax: | Fax: | | | | | SURGERY | [phone] | [phone] | | | | | METAL CASKET MAKER | | | +--------+---------+ + + + [...] | syndrome | [address] | | | | | type [address] of | Rd | Rd [place], | | | | | left lower | [place], [place] | [place] | | | | | extremity | [address] | [address] | | | | | Muscle pain | Phone: | Phone: | | | | | Procedures | [phone] | [phone] | | | | | REQUEST TO | Fax: | Fax: | | | | | SURGERY | [phone] | [phone] | | | | | METAL CASKET MAKER | | | | | | | MA INJ,ANES | | | | | | | AGENT,SCIATI | | | | | | | C | | | | | | | NERVE,SINGLE | | | | | | | MA INJECT | | | | | | | NERV | | | | | | | BLCK,OTHR | | | | | | | PERIPH NERV | | | | | | | MA SONO | | | | | | | GUIDE FOR | | | | | | | NEEDLE | | | | | | | PLACEMENT | | | | | | | MA MOD | | | | | | | SEDATION | | | | | | | >=5YRS SAME | | | | | | | MD/QUAL | | | | | | | PROV; INIT | | | | | | | 15 MIN MA | | | | | | | [...] | | | | CONSULT TO | [address] | [place] | | | | | PAIN | | [address] | | | | | MANAGEMENT | | Phone: | | | | | | | [phone] | | | | | | | Fax: | | | | | | | [phone] | +--------+--------+ + + + + Encounter Details +--------+---------+ + + + | Date | Type | Department | Care Team | Description | +--------+---------+ + + + | 12/14/ | Office | [facility] | Alex Sanchez, | Complex regional | | 2018 | Visit | Pain Center at | ,PhD [address] | pain syndrome type 1 | | | | [facility] | [facility] [address] | of left lower | | | | [address] | [place], [place] | extremity (Primary | | | | [place] [facility] | [address] | Dx); Muscle pain; | | | | and Healing, | [phone] | Pain of upper | | | | | | abdomen | | | | Floor [place], [place] | | | | | | [address] | | | | | | [phone] | | | +--------+---------+ + + + [...] make sure this is scheduled with the Critical Care Registered Nurse. PRE-PROCEDURE INSTRUCTIONS 1. Please bring a substitute bus driver with you as we may give you medications that impair your ability to drive. This is necessary even if you do not receive sedation. You may take a taxi or Lexitycar if you are accompanied by a responsible [...] or blood thinning medications (other than aspirin), [facility] doctor who is doing your procedure will communicate with the provider who is prescribing y our anticoagulant therapy. If you do not have clear instructions on what to do with your an ticoagulant by 2 weeks before your procedure, please contact [facility] to cl arify your instructions. The phone number for questions or concerns is [phone]. documented in this encounter Progress Notes Charline [...] M D,PhD - 12/14/2017 10:25 AM PST [facility] Return Visit Date: 12/14/2017 Chief Complaint Patient presents with Back pain Low back pain Abdominal pain Pain in right leg Pain in left leg History of Present Illness: Tracie Farah is a 27 year old female, whose last appoi ntment at the [facility] was October 11, 2017, for a clinic [...] review treatment plan. * Follow up with [facility] as needed. Today, she [...] was treated by Christie Madrid MD in [place], [place] for three years before she abruptly ended her practice due to illness. This left her without a doctor to help her manage her chronic pain. In addition to her CRPS symptoms (diagnosed 2010), she has some sto mach issues that she has been working with Ilene Childs DNP, PROJECT COACH-C. She has a scar on her stomach [...] a lot of great improvements while in [place], [place]. Weaning her off of the narcotic [...] her medical history that she spent in [place], [place] where she part ook in a [...] Spinal cord stimulator trial - Nerve blocks MANAGER STUDENT SERVICES Brief Pain Inventory: (ten= worst possible pain [...] Hemroidectomy Trial spinal cord stimulator leads 08/02/2012 [facility], Surgeon: Janak Riojas MD Cholecystectomy [...] History Social History Narrative Single. 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 Has been working at [employer], can' t work on [employer]obe[employer]. Has roommates. Allergies Allergen Reactions Morphine Anaphylaxis [...] by physician. Concentration is 150mg/mL. Compounded by [facility] ) LAMOTRIGINE 200 MG TABLET Take [...] SOLUTION Take as directed by [facility] Digestive [facility]- 2 gallon bowel prep POLYETHYLENE GLYCOL [...] and summary of old medical records (source: H[employer]Art), as summarized in the body of the [...] to her by Christie Madrid MD in [place], [place]. As she has since left the [...] today. I jacqueline poon spoken with our director medical economics, Evelia Gonzalez MD who agrees that as [...] peripheral nerve stimulation. As she lives in [place], [place] with her family (3.5 hours away), [...] by Sonia Key. Alex Sanchez MD PhD Shipping And Receiving Operator Anesthesiology and Pain Management [facility] Post visit: I reviewed the UDS, [...] | + + + + + | [facility] | [address] | [place] [address] | | | SERVICES, CORE | [address] [...]
--- OUTSIDE RECORDS SUMMARY | ~2020-05-26 | XMS | Encounter Summary ---
Demographics + + + | Address | [address] | | | [place] [address] | + + + | Home Phone [...] Team Providers + +------+ + | Care Local Announcer Name | Role | Phone | [...] | | [facility] | [place], [place] | | | | | Health and Healing, | [address] | | | | | | [phone] | | | | | [place], [place] | | | | | | [address] | | | | | | [phone] | | | +--------+ + + + [...] Note | + + | Service Account, iSentium Res In Interface - 03/08/2018 9:42 AM [...]
--- OUTSIDE RECORDS SUMMARY | ~2020-05-26 | XMS | Encounter Summary ---
Demographics + + + | Address | [address] | | | [place] [address] | + + + | Home Phone [...] Providers + +------+ + | Care Tower Crane Operator Name | Role | Phone [...]
--- OUTSIDE RECORDS SUMMARY | ~2020-05-26 | XMS | Encounter Summary ---
Demographics + + + | Address | [address] | | | [place] [address] | + + + | Home Phone [...] Providers + +------+ + | Care Revenue Liaison Name | Role | Phone | + +------+ + | Allegra Gandhi | PCP | | + +------+ + Encounter Details +--------+ + + + + | Date | Type | Department | Care Team | Description | +--------+ + + + + | 02/13/ | Outside | UNKNOWN DEPARTMENT | Other, Faculty | | | 2011 | Records | [address] | [phone] | | | | | [address] | | | | | | [place], [place] | | | | | | [address] | | | +--------+ + + + [...]
--- OUTSIDE RECORDS SUMMARY | ~2020-05-26 | XMS | Encounter Summary ---
Demographics + + + | Address | [address] | | | [place] [address] | + + + | Home Phone [...] Team Providers + +------+ + | Care Claims Processor Name | Role | Phone | + +------+ + | Allegra Gandhi | PCP | | + +------+ + Encounter Details +--------+ + + + + | Date | Type | Department | Care Team | Description | +--------+ + + + + | 03/01/ | Results | [facility] | Janak Riojas, | | | 2011 | Only | Pain Center at | MD [address] [facility] | | | | | [facility][Note 3] | [facility] [address] | | | | | [address] | [place], [place] | | | | | Center for Health | [address] | | | | | and [place], | [phone] | | | | | | | | | | | Floor [place], [place] | | | | | | [address] | | | | | | [phone] | | | +--------+ + + + [...]
--- OUTSIDE RECORDS SUMMARY | ~2020-05-26 | XMS | Encounter Summary ---
Demographics + + + | Address | [address] | | | [place] [address] | + + + | Home Phone [...] Team Providers + +------+ + | Care Leather Tanner Name | Role | Phone | + [...] Pain | | 2016 | | Center [place] [address] [address] | | | | | | [facility] | | | | | | for Health and | | | | | | Healing, [address] | | | | | | [place], [place] | | | | | | [address] | | | | | | [phone] | | | +--------+ + + + [...]
--- OUTSIDE RECORDS SUMMARY | ~2020-05-26 | XMS | Encounter Summary ---
Demographics + + + | Address | [address] | | | [place] [address] | + + + | Home Phone [...] Providers + +------+ + | Care Solution Specialist Name | Role | Phone | [...] Pharmacy | | | | | | [address] | | | | | | Loop [place], [place] | | | | | | [address] | | | | | | [phone] | | | +--------+ + + + [...]
--- OUTSIDE RECORDS SUMMARY | ~2020-05-26 | XMS | Encounter Summary ---
Demographics + + + | Address | [address] | | | [place] [address] | + + + | Home Phone [...] Team Providers + +------+ + | Care Subcontract Administrator Name | Role | Phone | [...] | | Center at [facility] [address] | | severe stomach Pain) | | | | [address] [facility] | | | | | | for Health and | | | | | | Healing, [address] | | | | | | [place], [place] | | | | | | [address] | | | | | | [phone] | | | +--------+ + + + [...]
--- OUTSIDE RECORDS SUMMARY | ~2020-05-26 | XMS | Encounter Summary ---
Demographics + + + | Address | [address] | | | [place] [address] | + + + | Home Phone [...] Team Providers + +------+ + | Care Housekeeping Room Inspector Name | Role | Phone | [...] | | | | | syndrome | [facility] | [facility] | | | | | type 1 of | Rd | Rd [place], | | | | | left lower | [facility], [place] | [place] | | | | | extremity | [address] | [address] | | | | | Procedures | Phone: | Phone: | | | | | REQUEST TO | [phone] | [phone] | | | | | SURGERY | Fax: | Fax: | | | | | PLANER CHAIN OFFBEARER | [phone] | [phone] | +--------+---------+ + + + + Reason [...] | | | location | Rd | [address] | | | | | Procedures | [place], [place] | [place], | | | | | CONSULT TO | [address] | [place] | | | | | PAIN | | [address] | | | | | MANAGEMENT | | Phone: | | | | | | | [phone] | | | | | | | Fax: | | | | | | | [phone] | +--------+--------+ + + + + Encounter Details +--------+---------+ + + + | Date | Type | Department | Care Team | Description | +--------+---------+ + + + | 10/09/ | Office | [facility] | Alex Sanchez, | Complex regional | | 2018 | Visit | Pain Center at | ,PhD [address] | pain syndrome type 1 | | | | [facility] | [facility] [address] | of left lower | | | | [address] | [place], [place] | extremity (Primary | | | | [place] for [facility] | [address] | Dx) | | | | and Healing, | [phone] | | | | | | | | | | | Floor [place], [place] | | | | | | [address] | | | | | | [phone] | | | +--------+---------+ + + + [...] with an external order to see a philosophy specialist today. Please p resent this referral [...] insurance. PRE-PROCEDURE INSTRUCTIONS 1. Please bring a trencher driver with you as we may give [...] or blood thinning medications (other than aspirin), [facility] doctor who is doing your procedure will communicate with the provider who is prescribing y our anticoagulant therapy. If you do not have clear instructions on what to do with your an ticoagulant by 2 weeks before your procedure, please contact [facility] to cl arify your instructions. The phone number for questions or concerns is [phone]. documented in this encounter Progress Notes Alex [...] notes. Alex Sanchez MD,PhD [facility]ron[facility] signed by Alex Sanchez MD,PhD at [...] Person MD - 10/09/2018 10:00 AM PST [facility] Return Visit Date: 10/09/2018 Chief Complaint Patient presents with Back pain Low back pain Pain in left leg Knee pain Ankle pain Foot pain History of Present Illness: Tracie Farah is a 28 year old female, whose last appoi ntment at the [facility] [place] was September 28, 2018, for a clinic visit with Yun Frey NP. At that time our plans were: Recommendations/Plan: 1. Recommend to keep her appointment with Dr. Sanchez on 10/02/2018. 2. To contact the [place]'s rep if she has any further question [...] She went into the emergency room in [place], [place] where they rem cady the leads. She [...] which she suspects also used dissolvable stitches. 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 Has been working at [employer], can' t work on [employer]. Has roommates. Allergies Allergen Reactions Morphine Anaphylaxis [...] the vein (IV) every eight hour s. [id number] COMPOUNDED MED RX CONTROLLED (SEE ADMIN INSTRUCT [...] by physician. Concentration is 150mg/mL. Compounded by [employer] ) KETOROLAC IM Inject into the muscle [...] (IV) every twel ve hours as needed. [id number] ONDANSETRON 4 MG DISINTEGRATING TABLET Dissolve 1 tablet in mouth every twelve hours as nee ded. PANTOPRAZOLE 40 MG TABLET,DELAYED RELEASE Take 40 mg by mouth once daily. PEG 3350-ELECTROLYTES 236 GRAM-22.74 GRAM-6.74 GRAM-5.86 GRAM SOLUTION Take as directed by [facility]- 2 gallon bowel [...] and summary of old medical records (source: [employer]), as summarized in the body of the [...] Key. Arben Valerio MD PAIN CENTER AT [facility] 15TH FLOOR [address] Mail Code: [address] [place] [address] [phone] signed by Alex Sanchez MD,PhD at 10/10/2018 9:27 AM [facility] umented in this encounter Plan of Treatment Not on filedocumented as of this encounter Visit Diagnoses + + | Diagnosis | + + | Complex regional pain syndrome type 1 of left lower extremity - Primary | + + documented in this encounter
--- OUTSIDE RECORDS SUMMARY | ~2020-05-26 | XMS | Encounter Summary ---
Demographics + + + | Address | [address] | | | [place] [address] | + + + | Home Phone [...] Team Providers + +------+ + | Care Tack Puller Machine Name | Role | Phone | + +------+ + | Allegra Gandhi | PCP | | + +------+ + Encounter Details +--------+ + + + + | Date | Type | Department | Care Team | Description | +--------+ + + + + | 08/02/ | Results | [facility] | Janak Riojas, | | | 2011 | Only | Pain Center at | MD [address] | | | | | [facility] | [facility] [id number] | | | | | [address] | [place], [place] | | | | | Center for Health | [address] | | | | | and [place], | [phone] | | | | | | | | | | | Floor [place], [place] | | | | | | [address] | | | | | | [phone] | | | +--------+ + + + [...]
--- OUTSIDE RECORDS SUMMARY | ~2020-05-26 | XMS | Encounter Summary ---
Demographics + + + | Address | [address] | | | [place] [address] | + + + | Home Phone [...] Providers + +------+ + | Care Power House Engineer Name | Role | Phone | [...] | | | | | Procedures | [place], [place] | | | | | | MR | [id number] | | | | | | ENTEROGRAPHY [...] | 2017 | Visit | Center at [facility] [address] | | unspecified location | | | | [address] [facility] | | (Primary Dx) | | | | for Health and | | | | | | Healing, Building [address] | | | | | | [place], [place] | | | | | | [address] | | | | | | [phone] | | | +--------+---------+ + + + [...] heavy metal poisoning 2) MR enterography - [phone] to schedule 3) can increase miralax to 6 times per day Return to clinic in 3 months Please feel free to call our clinic with any questions. [phone] Kenny Gaspar MD Fellow, Division of Gastroenterology [...] n their attached note. Celia Lin MD Clinical Assessment Managermarble cleaner Division of Gastroenterology & Hepatology [facility] Kenny Dodge Md - 2016 3:15 PM PST Gastroenterology Clinic Follow-Up Note 01/11/2017 CC/ID: Tracie Farah is a 26 F PMHx depression, complex regional pain syndrome(CRPS ) here for follow-up of n/v, abdominal pain INTERVAL HISTORY: Previously seen by Dr. Carbajal 08/10/16 - 10/2015 - hospitalized at [facility] for nausea/vomiting/pain -> [facility] -> CT [...] Note | + + | Service Account, Episona Res In Interface - 02/01/2017 3:50 PM [...]
--- OUTSIDE RECORDS SUMMARY | ~2020-05-26 | XMS | Encounter Summary ---
Demographics + + + | Address | [address] | | | [place] [address] | + + + | Home Phone [...] Providers + +------+ + | Care Senior Tableau Developer Name | Role | Phone | [...] | Pain Center at | [address] | | | | | [facility] | [facility] [id number] | | | | | [address] | [place], [place] | | | | | Center for Health | [address] | | | | | and Healing, | [phone] | | | | | [facility] | | | | | | Floor [place], [place] | | | | | | [address] | | | | | | [phone] | | | +--------+ + + + [...]
--- OUTSIDE RECORDS SUMMARY | ~2020-05-26 | XMS | Encounter Summary ---
Demographics + + + | Address | [address] | | | [place] [address] | + + + | Home Phone [...] Team Providers + +------+ + | Care Order Entry Clerk Name | Role | Phone | + +------+ + | Justo Vazquez MD | PCP | | + +------+ + Encounter Details +--------+ + + + + | Date | Type | Department | Care Team | Description | +--------+ + + + + | 12/07/ | Cream Separator Operator | [facility] at [facility] | Ava Carbajal | | | 2016 | | [address] MD | | | | | [address] [facility] for | | | | | | Health and Healing, | | | | | | Building [address] | | | | | | [place], [place] | | | | | | [address] | | | | | | [phone] | | | +--------+ + + + [...]
--- OUTSIDE RECORDS SUMMARY | ~2020-05-26 | XMS | Encounter Summary ---
Demographics + + + | Address | [address] | | | [place] [address] | + + + | Home Phone [...] Team Providers + +------+ + | Care Nuclear Test Technician Name | Role | Phone | [...] + + | 09/15/ | Telephone | [facility] | Alex Sanchez, | Question | | 2018 | | Pain Center at | ,PhD [address] | | | | | [facility] | [address] | | | | | [address] | [place], [place] | | | | | [facility] | [address] | | | | | and [place], | [phone] | | | | | Building | | | | | | Floor [place], [place] | | | | | | [address] | | | | | | [phone] | | | +--------+ + + + [...]
--- OUTSIDE RECORDS SUMMARY | ~2020-05-26 | XMS | Encounter Summary ---
Demographics + + + | Address | [address] | | | [place] [address] | + + + | Home Phone [...] Providers + +------+ + | Care Wire Hanger Name | Role | Phone | [...] | | | | | [address] | | | | | | [address] | | | | | | [place], | | | | | | [address] [place] [address], | | | | | | [place] [address] | | | | | | [phone] | | | +--------+ + + + [...]
--- OUTSIDE RECORDS SUMMARY | ~2020-05-26 | XMS | Encounter Summary ---
Demographics + + + | Address | [address] | | | [place] [address] | + + + | Home Phone [...] Team Providers + +------+ + | Care Tile Layer Name | Role | Phone [...] | | 2017 | anned | Services [id number] | | | | | | [address] | | | | | | Mailcode: [id number] | | | | | | [facility] | | | | | | [place], [place] | | | | | | [address] | | | | | | [phone] | | | +--------+ + + + [...]
--- OUTSIDE RECORDS SUMMARY | ~2020-05-26 | XMS | Encounter Summary ---
Demographics + + + | Address | [address] | | | [place] [address] | + + + | Home Phone [...] Team Providers + +------+ + | Care Pit Steward Name | Role | Phone | [...] | | | | regional | ,PhD [address] | | | | | | pain | [address] | | | | | | syndrome | [address] | | | | | | type 1 of | Rd | | | | | | left lower | [place], [place] | | | | | | extremity | [address] | | | | | | Procedures | Phone: | | | | | | CONSULT TO | [phone] | | | | | | ORTHOPEDICS | Fax: | | | | | | AND | [phone] | | | | | | REHABILITATI | | | | | | | ON | | | +--------+--------+ + + + + Encounter Details +--------+ + + + + | Date | Type | Department | Care Team | Description | +--------+ + + + + | 06/08/ | Field Sales Trainer | [facility] | Alex Sanchez, | Complex regional | | 2019 | | Pain Center at | ,PhD [address] [facility] | pain syndrome type 1 | | | | [facility] | [address] | of left lower | | | | [address] | [place], [place] | extremity (Primary | | | | Center for [facility] | [address] | Dx) | | | | and Healing, | [phone] | | | | | | | | | | | Floor [place], [place] | | | | | | [address] | | | | | | [phone] | | | +--------+ + + + [...]
--- OUTSIDE RECORDS SUMMARY | ~2020-05-26 | XMS | Encounter Summary ---
Demographics + + + | Address | [address] | | | [place] [address] | + + + | Home Phone | | + + + | Preferred Language | Unknown | + + + | Marital Status | Single | + + + | Mu-Ism Affiliation | 1073 | + + + | Race | Unknown | + + + | Ethnic Group | Unknown | + + + Author + + + | Author | [facility] | | | and [place] | + + + | Organization | [facility] | | | and [place] [...] [place] | | | | | [address] | | + + + + + | Bryant Farah | ECON | Unknown | | + + + + + Care Team Providers + +------+ + | Care Ict Development Manager Name | Role | Phone | + +------+ + PCP | Unavailable | + +------+ + Encounter Details +--------+ + + + + | Date | Type | Department | Care Team | Description | +--------+ + + + + | 06/22/ | Emergency | [facility] | Chung Portillo | Nondiabetic | | 2016 | | MEDICAL CENTER | DO [address] | gastroparesis | | | | EMERGENCY CENTER | [address] | | | | | [address] | [place], [place] | | | | | [place], [place] | [address] | | | | | [address] | [phone] | | | | | [phone] | | | +--------+ + + + [...] 06/23/161053 Date of Service: 06/23/161053 Status: Signed Probation Manager: Devante Guerrero MD (Physician) Procedures Additional Documentation Procedures Pharmacy called to clarify viscous lidocaine order - there was no frequency specified. I a dvised Q 4 hours PRN. Devante Guerrero MD 06/23/161053 John Mcgee PA-C - 06/22/2016 7:25 PM PDT ED Provider Notes by John Leonard PA-C at 06/22/161924 Author: John Leonard PA-C Service: Emergency Department Author Type: Physician Benefits Officer - Certified Filed: 06/22/162104 Date of Service: 06/22/161924 Status: Signed Probation Manager: John Leonard PA-C (Physician Benefits Officer - Certified) Cosigner: Chung Portillo DO at 06/22/16 2312 Procedures [facility] History of Present Illness Patient [...] department evaluations and treatment with Reglan at [facility] and has come to [facility] for, further evaluation and relief. Patient relates that she does not have a drop wire aliner follow-up or provider. Past Medical History Diagnosis [...] TRIAL; Surgeon: Ulices Hayes MD; Locati on: [facility]; Service: Pain Management; Laterality: N/A; 10:30 [...] is afebrile and nontoxic-appearing at this ti ky. Records Reviewed Nursing notes. Labs & Radiology Results Laboratory Evaluation Results Procedure Component Value Ref Range Date/Time Lactic acid [[id number]] Collected: 06/22/161850 Order Status: Completed Specimen Information: Blood Updated: 06/22/162010 LACTIC ACID 1.2 0.4 - 2.0 mmol/L Magnesium [[id number]] Collected: 06/22/161850 Order Status: Completed Specimen Information: Blood Updated: 06/22/162008 MAGNESIUM 2.1 1.7 - 2.4 mg/dL Phosphorus [[id number]] Collected: 06/22/161850 Order Status: Completed Specimen Information: Blood Updated: 06/22/162008 PHOSPHORUS 3.6 2.3 - 4.8 mg/dL Lipase [[id number]] Collected: 06/22/161850 Order Status: Completed Specimen Information: Blood Updated: 06/22/161926 LIPASE 103 73 - 393 U/L Comprehensive metabolic panel [[id number]] (Abnormal) Collected: 06/22/161850 Order Status: Completed Specimen [...] 65 U/L EGFR >60 >60 mL/min/1.73m2 Amylase [[id number]] Collected: 06/22/161850 Order Status: Completed Specimen Information: Blood Updated: 06/22/161926 AMYLASE 39 25 - 115 U/L C-reactive protein [[id number]] Collected: 06/22/161850 Order Status: Completed Specimen Information: Blood Updated: 06/22/161926 CRP <0.3 <0.5 mg/dL CBC with differential [[id number]] Collected: 06/22/161850 Order Status: Completed Specimen Information: [...] K/uL Urinalysis (reflex to micro/reflex to culture) [[id number]] Collected: 06/22/161848 Order Status: Completed Specimen Information: Urine, Clean Catch Updated: 06/22/16 19 09 COLOR UA STRAW CLARITY CLEAR Specific [place], UA 1.005 1.002 - 1.030 LEUKOCYTE ESTERASE NEGATIVE NEGATIVE NITRITE NEGATIVE NEGATIVE UROBILINOGEN NORMAL <1.1 mg/dL PROTEIN NEGATIVE NEGATIVE mg/dL PH,URINE 7.0 5.0 - 8.0 BLOOD NEGATIVE NEGATIVE KETONES NEGATIVE NEGATIVE mg/dL BILIRUBIN NEGATIVE NEGATIVE GLUCOSE NEGATIVE NEGATIVE mg/dL Urine Test [[id number]] Collected: 06/22/161848 Order Status: Completed Specimen Information: [...] as soon as possible for a visit [address] [place] [address] Allegra Chaudhary PA-C In 1 week [address] [place] [id number] [facility] Emergency Department If symptoms worsen [address] [place] [address] [id number] Discharge Medications: Discharge Medication List as of [...] 06/22/161745 Date of Service: 06/22/161745 Status: Signed Probation Manager: Sd Comer RN (Registered Nurse) Patient given [...] EXTERNAL | | | | performed at [facility];[address] | K/uL | LAB | | | | [address];[place] | | | | | | [address] | | | | + + + + + + | Non- | 4.46Comment: Testing | 3.70 - 5.10 | EXTERNAL | | | Red Blood | performed at [facility];888 | M/uL | LAB | | | Cells | [address];[place] | | | | | Counted | [address] | | | | + + + + + + | Hemoglobin | 13.9Comment: Testing | 11.3 - 15.5 | EXTERNAL | | | | performed at [facility];888 | g/dL | LAB | | | | [address];[place] | | | | | | [address] | | | | + + + + + + | Hematocrit, | 41.0Comment: Testing | 34.0 - 46.0 % | EXTERNAL | | | POC | performed at [facility];888 | | LAB | | | | [address];[place] | | | | | | [address] | | | | + + + + + + | MCV | 91.9Comment: Testing | 80.0 - 100.0 fl | EXTERNAL | | | | performed at [facility];[address] | | LAB | | | | [address];[place] | | | | | | [address] | | | | + + + + + + | MCH | 31.1Comment: Testing | 27.0 - 34.0 pg | EXTERNAL | | | | performed at [facility];[address] | | LAB | | | | [address];[place] | | | | | | [address] | | | | + + + + + + | MCHC | 33.9Comment: Testing | 32.0 - 35.5 | EXTERNAL | | | | performed at [facility];888 | g/dL | LAB | | | | [address];[place] | | | | | | [address] | | | | + + + + + + | RDW-CV | 40.3Comment: Testing | 37 - 53 fl | EXTERNAL | | | | performed at [facility];[address] | | LAB | | | | [address];[place] | | | | | | [address] | | | | + + + + + + | Platelet | 203Comment: Testing | 150 - 400 K/uL | EXTERNAL | | | Count | performed at [facility];888 | | LAB | | | Plasma | [address];[place] | | | | | | [address] | | | | + + + + + + | MPV | 8.3Comment: Testing | fl | EXTERNAL | | | | performed at [facility];[address] | | LAB | | | | [address];[place] | | | | | | [address] | | | | + + + + + + | Differentia | AUTOMATEDComment: | | EXTERNAL | | | l Type | Testing performed at | | LAB | | | | [facility];[address];[place] [address] | | | | + + + + + + | % Segmented | 65.86Comment: Testing | % | EXTERNAL | | | | performed at [facility];888 | | LAB | | | Neutrophils | [address];[place] | | | | | | [address] | | | | + + + + + + | % | 25.52Comment: Testing | % | EXTERNAL | | | Lymphocytes | performed at [facility];[address] | | LAB | | | | [address];[place] | | | | | | [address] | | | | + + + + + + | % Monocytes | 6.38Comment: Testing | % | EXTERNAL | | | | performed at [facility];[address] | | LAB | | | | [address];[place] | | | | | | [address] | | | | + + + + + + | % | 1.61Comment: Testing | % | EXTERNAL | | | Eosinophils | performed at [facility];[address] | | LAB | | | | [address];[place] | | | | | | [address] | | | | + + + + + + | % Basophils | 0.63Comment: Testing | % | EXTERNAL | | | | performed at [facility];[address] | | LAB | | | | [address];[place] | | | | | | [address] | | | | + + + + + + | Absolute | 6.91Comment: Testing | 1.90 - 7.40 | EXTERNAL | | | Segmented | performed at [facility];888 | K/uL | LAB | | | Neutrophils | [address];[place] | | | | | | [address] | | | | + + + + + + | Absolute | 2.68Comment: Testing | 1.00 - 3.90 | EXTERNAL | | | Lymphocytes | performed at [facility];888 | K/uL | LAB | | | | [address];[place] | | | | | | [address] | | | | + + + + + + | Absolute | 0.67Comment: Testing | 0.00 - 0.80 | EXTERNAL | | | Monocytes | performed at [facility];[address] | K/uL | LAB | | | | [address];[place] | | | | | | [address] | | | | + + + + + + | Absolute | 0.17Comment: Testing | 0.00 - 0.50 | EXTERNAL | | | Eosinophils | performed at [facility];888 | K/uL | LAB | | | | [address];[place] | | | | | | [address] | | | | + + + + + + | Absolute | 0.07Comment: Testing | 0.00 - 0.10 | EXTERNAL | | | Basophils | performed at [facility];[address] | K/uL | LAB | | | | [address];[place], [place] | | | | | | [address] | | | | + + + [...] EXTERNAL | | | | performed at [facility] | | LAB | | | | [address];[place], [place] | | | | | | [address] | | | | + + + [...] EXTERNAL | | | | performed at [facility];[address] | | LAB | | | | [address];[place] | | | | | | [address] | | | | + + + [...] LAB | | | | performed at [facility];[address] | | | | | | [address];[place], [place] | | | | | | [address] | | | | + + + [...] EXTERNAL | | | | performed at [facility];8 | | LAB | | | | [address];[place] | | | | | | [address] | | | | + + + [...] EXTERNAL | | | | performed at [facility];888 | mmol/L | LAB | | | | [address];[place], [place] | | | | | | [address] | | | | + + + [...] EXTERNAL | | | | performed at [facility];888 | | LAB | | | | [address];[place] | | | | | | [address] | | | | + + + [...] EXTERNAL | | | | performed at [facility];888 | mmol/L | LAB | | | | [address];[place] | | | | | | [address] | | | | + + + + + + | K | 3.8Comment: Testing | 3.5 - 4.9 | EXTERNAL | | | | performed at [facility];888 | mmol/L | LAB | | | | [address];[place] | | | | | | [address] | | | | + + + + + + | Cl | 104Comment: Testing | 99 - 109 mmol/L | EXTERNAL | | | | performed at [facility];[address] | | LAB | | | | [address];[place] | | | | | | [address] | | | | + + + + + + | CO2 | 27Comment: Testing | 23 - 32 mmol/L | EXTERNAL | | | | performed at [facility];[address] | | LAB | | | | [address];[place] | | | | | | [address] | | | | + + + + + + | Anion Gap | 12Comment: Testing | 5 - 20 mmol/L | EXTERNAL | | | | performed at [facility];[address] | | LAB | | | | [address];[place] | | | | | | [address] | | | | + + + + + + | Glucose, | 80Comment: Testing | 65 - 99 mg/dL | EXTERNAL | | | Fasting | performed at [facility];[address] | | LAB | | | | [address];[place] | | | | | | [address] | | | | + + + + + + | BUN | 4 (L)Comment: Testing | 8 - 25 mg/dL | EXTERNAL | | | | performed at [facility];[address] | | LAB | | | | [address];[place] | | | | | | [address] | | | | + + + + + + | Creatinine | 0.83Comment: Testing | 0.50 - 1.00 | EXTERNAL | | | | performed at [facility];888 | mg/dL | LAB | | | | [address];[place] | | | | | | [address] | | | | + + + + + + | BUN/Creatin | 5Comment: Testing | | EXTERNAL | | | ine Ratio | performed at [facility];[address] | | LAB | | | | [address];[place] | | | | | | [address] | | | | + + + + + + | Calcium | 9.1Comment: Testing | 8.5 - 10.5 | EXTERNAL | | | | performed at [facility];888 | mg/dL | LAB | | | | [address];[place] | | | | | | [address] | | | | + + + + + + | Protein, | 7.4Comment: Testing | 6.3 - 8.2 g/dL | EXTERNAL | | | Total | performed at [facility];[address] | | LAB | | | | [address];[place] | | | | | | [address] | | | | + + + + + + | Albumin | 4.5Comment: Testing | 3.6 - 5.0 g/dL | EXTERNAL | | | | performed at [facility];[address] | | LAB | | | | [address];[place] | | | | | | [address] | | | | + + + + + + | Globulin | 3.0Comment: Testing | 1.3 - 4.9 g/dL | EXTERNAL | | | | performed at [facility];[address] | | LAB | | | | [address];[place] | | | | | | [address] | | | | + + + + + + | A/G Ratio | 1.5Comment: Testing | 1.0 - 2.4 | EXTERNAL | | | | performed at [facility];[address] | | LAB | | | | [address];[place] | | | | | | [address] | | | | + + + + + + | Bilirubin | 0.6Comment: Testing | 0.1 - 1.5 mg/dL | EXTERNAL | | | Total | performed at [facility];[address] | | LAB | | | | [address];[place] | | | | | | [address] | | | | + + + + + + | ALP, | 61Comment: Testing | 35 - 115 U/L | EXTERNAL | | | External | performed at [facility];[address] | | LAB | | | | [address];[place] | | | | | | [address] | | | | + + + + + + | AST | 7 (L)Comment: Testing | 10 - 45 U/L | EXTERNAL | | | | performed at [facility];[address] | | LAB | | | | [address];[place] | | | | | | [address] | | | | + + + + + + | ALT | 20Comment: Testing | 10 - 65 U/L | EXTERNAL | | | | performed at [facility];[address] | | LAB | | | | [address];[place] | | | | | | [address] | | | | + + + [...] | | | | | | at [facility];[address];[place] [address] | | | | + + + [...] EXTERNAL | | | | performed at [facility] | | LAB | | | | [address];[place] | | | | | | [address] | | | | + + + + + + | Clarity, | CLEARComment: Testing | | EXTERNAL | | | Urine | performed at [facility];[address] | | LAB | | | | [address];[place] | | | | | | [address] | | | | + + + + + + | Specific | 1.005Comment: Testing | 1.002 - 1.030 | EXTERNAL | | | [place], | performed at [facility];[address] | | LAB | | | Urine | [address];[place] | | | | | | [address] | | | | + + + + + + | Leukocyte | NEGATIVEComment: Testing | | EXTERNAL | | | Esterase, | performed at [facility];[address] | | LAB | | | Urine | [address];[place] | | | | | | [address] | | | | + + + + + + | Nitrite, | NEGATIVEComment: Testing | | EXTERNAL | | | Urine | performed at [facility];[address] | | LAB | | | | [address];[place] | | | | | | [address] | | | | + + + + + + | Urobilinoge | NORMALComment: Testing | mg/dL | EXTERNAL | | | n, Urine | performed at [facility];[address] | | LAB | | | | [address];[place] | | | | | | [address] | | | | + + + + + + | Protein, | NEGATIVEComment: Testing | mg/dL | EXTERNAL | | | Urine | performed at [facility];[address] | | LAB | | | | [address];[place] | | | | | | [address] | | | | + + + + + + | pH, Urine | 7.0Comment: Testing | 5.0 - 8.0 | EXTERNAL | | | | performed at [facility];[address] | | LAB | | | | [address];[place] | | | | | | [address] | | | | + + + + + + | Blood, | NEGATIVEComment: Testing | | EXTERNAL | | | Urine | performed at [facility];[address] | | LAB | | | | [address];[place] | | | | | | [address] | | | | + + + + + + | Ketones | NEGATIVEComment: Testing | mg/dL | EXTERNAL | | | | performed at [facility];[address] | | LAB | | | | [address];[place] | | | | | | [address] | | | | + + + + + + | Bilirubin, | NEGATIVEComment: Testing | | EXTERNAL | | | Urine | performed at [facility];[address] | | LAB | | | | [address];[place] | | | | | | [address] | | | | + + + + + + | Glucose, | NEGATIVEComment: Testing | mg/dL | EXTERNAL | | | Urine | performed at [facility];888 | | LAB | | | | [address];[place], [place] | | | | | | [address] | | | | + + + [...] | | | Ur | performed at [facility] | | LAB | | | | [address];[place], [place] | | | | | | [address] [...]
--- OUTSIDE RECORDS SUMMARY | ~2020-05-26 | XMS | Encounter Summary ---
Demographics + + + | Address | [address] | | | [place] [address] | + + + | Home Phone [...] Team Providers + +------+ + | Care Instrument Repairer Steam Plant Name | Role | Phone | + +------+ + | Justo Vazquez MD | PCP | | + +------+ + Encounter Details +--------+ + + + + | Date | Type | Department | Care Team | Description | +--------+ + + + + | 10/20/ | Telephone | [facility] | Ilene Bright, | | | 2017 | | Pain Center at | INSTRUCTOR WATCH ASSEMBLY [address] | | | | | [facility] | [place], [place] | | | | | [address] | [address] | | | | | [place] for [facility] | [phone] | | | | | and Healing, | | | | | | | | | | | | Floor [place], [place] | | | | | | [address] | | | | | | [phone] | | | +--------+ + + + [...]
--- OUTSIDE RECORDS SUMMARY | ~2020-05-26 | XMS | Encounter Summary ---
Demographics + + + | Address | [address] | | | [place] [address] | + + + | Home Phone [...] Team Providers + +------+ + | Care Assisted Living Associate Name | Role | Phone | [...] + + | 10/30/ | Refill | [facility] Comprehensive | Alex Sanchez, | Refill Request | | 2018 | | Pain Center at | ,PhD [address] | | | | | [facility] | [address] | | | | | [address] | [place], [place] | | | | | [facility] | [address] | | | | | and Martina, | [phone] | | | | | [facility] | | | | | | Floor [place], [place] | | | | | | [address] | | | | | | [phone] | | | +--------+--------+ + + + [...]
--- OUTSIDE RECORDS SUMMARY | ~2020-05-26 | XMS | Encounter Summary ---
Demographics + + + | Address | [address] | | | [place] [address] | + + + | Home Phone | | + + + | Preferred Language | Unknown | + + + | Marital Status | Single | + + + | Christian Affiliation | 1073 | + + + | Race | Unknown | + + + | Ethnic Group | Unknown | + + + Author + + + | Author | [facility] | | | and [place] | + + + | Organization | [facility] | | | and [...] [place] | | | | | [address] | | + + + + + | Bryant Farah | ECON | Unknown | | + + + + + Care Team Providers + +------+ + | Care Kelp Cutter Name | Role | Phone | + +------+ + PCP | Unavailable | + +------+ + Encounter Details +--------+ + + + + | Date | Type | Department | Care Team | Description | +--------+ + + + + | 03/16/ | Hospital | [facility] | Conversion | Back pain | | 2013 | Encounter | CONVERSION DEP [address] | Transaction, | | | | | [address] | Provider Unknown | | | | | [place], [place] | [phone] | | | | | [address] | | | | | | [phone] | | | +--------+ + + + [...]
--- OUTSIDE RECORDS SUMMARY | ~2020-05-26 | XMS | Encounter Summary ---
Demographics + + + | Address | [address] | | | [place] [address] | + + + | Home Phone [...] Providers + +------+ + | Care Criminal Intelligence Specialist Name | Role | Phone | + +------+ + | Justo Vazquez MD | PCP | | + +------+ + Encounter Details +--------+ + + + + | Date | Type | Department | Care Team | Description | +--------+ + + + + | 03/12/ | Assistant Professor Of Theater | [facility] Comprehensive | Alex Sanchez, | Complex regional | | 2019 | | Pain Center at | ,PhD [address] [facility] | pain syndrome type 1 | | | | [facility] | [address] | of left lower | | | | [address] | [place], [place] | extremity; S/P | | | | [facility] | [address] | insertion of spinal | | | | and Healing, | [phone] | cord stimulator | | | | | | | | | | Floor [place], [place] | | | | | | [address] | | | | | | [phone] | | | +--------+ + + + [...]
--- OUTSIDE RECORDS SUMMARY | ~2020-05-26 | XMS | Encounter Summary ---
Demographics + + + | Address | [address] | | | [place] [address] | + + + | Home Phone [...] Team Providers + +------+ + | Care Admissions Gate Attendant Name | Role | Phone | + +------+ + | Justo Vazquez MD | PCP | | + +------+ + Encounter Details +--------+------+ + + + | Date | Type | Department | Care Team | Description | +--------+------+ + + + | 12/14/ | Lab | Laboratory at [facility] | | Complex regional | | 2018 | | [address] | | pain syndrome type 1 | | | | Center for [facility] | | of left lower | | | | and Healing, | | extremity; Muscle | | | | Building [address] | | pain | | | | [place], [place] | | | | | | [address] | | | | | | [phone] | | | +--------+------+ + + + [...] | + + + + + | [facility] [place] | [address] | [place] [address] | | | [address] | [address] [...]
--- OUTSIDE RECORDS SUMMARY | ~2020-05-26 | XMS | Encounter Summary ---
Demographics + + + | Address | [address] | | | [place] [address] | + + + | Home Phone [...] Team Providers + +------+ + | Care Scow Hand Name | Role | Phone | [...] | CRPS | Janak Martinez MD | [facility] [address] | | | | | (complex | [address] | Pavilion | | | | | regional | [address] | [address] | | | | | pain | Mail[place] | [address], | | | | | syndrome), | [id number] | Basement | | | | | lower limb | [place], [place] | [place], [place] | | | | | Procedures | [address] | [address] | | | | | NM BONE &/[place] | Phone: | Phone: | | | | | JOINT | [phone] | [phone] | | | | | IMAGING 3 | Fax: | Fax: | | | | | PHASE | [phone] | [phone] | +--------+--------+ + + + + Encounter Details +--------+ + + + + | Date | Type | Department | Care Team | Description | +--------+ + + + + | 02/13/ | Hospital | Nuclear Medicine | | | | 2011 | Encounter | at [facility] [address] | | | | | | [address] | | | | | | [address], | | | | | | [place], | | | | | | [place] [address] | | | | | | [phone] | | | +--------+ + + + [...]
--- OUTSIDE RECORDS SUMMARY | ~2020-05-26 | XMS | Encounter Summary ---
Demographics + + + | Address | [address] | | | [place] [address] | + + + | Home Phone [...] Team Providers + +------+ + | Care Flooring Professional Name | Role | Phone | + +------+ + | Allegra Chaudhary | PCP | | + +------+ + Encounter Details +--------+ + + + + | Date | Type | Department | Care Team | Description | +--------+ + + + + | 10/21/ | Telephone | [facility] | Antony Beltre, | | | 2014 | | [place] [id number] | [address] | | | | | [place]y [place] | [place] [address] | | | | | [facility] and | [phone] | | | | | [facility] [address] | | | | | | [place], [place] | | | | | | [address] | | | | | | [phone] | | | +--------+ + + + [...]
--- OUTSIDE RECORDS SUMMARY | ~2020-05-26 | XMS | Encounter Summary ---
Demographics + + + | Address | [address] | | | [place] [address] | + + + | Home Phone [...] Providers + +------+ + | Care Sand Filler Name | Role | Phone | [...] | Diagnoses | Beulah | Edu Pt Passenger Relations Representative | | | | Therapy | CRPS | Janak Martinez MD | Chh1 [address] | | | | | (complex | [address] | | | | | regional | [address] | Mailcode: | | | | | pain | Mailstop | [facility] | | | | | syndrome), | [id number] | for Health | | | | | lower limb | [place], [place] | and Healing, | | | | | Gait | [address] | Building 1 | | | | | disturbance | Phone: | [place], [place] | | | | | Muscle pain | [phone] | [address] | | | | | Procedures | Fax: | Phone: | | | | | PHYSICAL | [phone] | [phone] | | | | | THERAPY | [...] | | | | [address] | [place] [address] | syndrome), lower | | | | [address] | [phone] | limb (Primary Dx) | | | | [facility] | | | | | | and Healing, | | | | | | Building 1, | | | | | | Floor [place], [place] | | | | | | [address] | | | | | | [phone] | | | +--------+---------+ + + + [...] might be different f rom the original. [id number] BRODY FARAH Date of : 1990 Start of care: 02/14/2012 Date of onset: 02/14/2012 Referring/Attending Practitioner: Janak Riojas MD . Primary/Referral Diagnosis/ICD-9: 355.71B CRPS (complex regional pain syndrome), lower limb Insurance: Payor: [facility] Plan: BCBS OUT OF STATE Product Type: PP O Service period from: 02/14/2012 to: 08/12/2012 Number visits used/authorized: 01/23 [facility] PHYSICAL THERAPY PROGRESS NOTE SUBJECTIVE: Age: 21 y.o. Sex: female Chief complaint: No chief complaint on file. Current: pt has been doing her neck exercises. She is not shaking as much. Her foot hurts t bruno. Now she is working at [employer] 2-3 hours per week, and spends a [...] change in their status. Guillermo Sanon MSPT [facility] Outpatient Rehabilitation Services Mailcode: Ch3o 8754 [facility], [address] [place] [address] documented in this encounter Plan of Treatment Not on filedocumented as of this encounter Procedures + +--------+ + + + | Procedure Name | Priori | Date/Time | Associated Diagnosis | Comments | | | ty | | | | + +--------+ + + + | [place] THERAPEUTIC | Routin | 05/11/2012 | CRPS [...]
--- OUTSIDE RECORDS SUMMARY | ~2020-05-26 | XMS | Encounter Summary ---
Demographics + + + | Address | [address] | | | [place] [address] | + + + | Home Phone [...] Providers + +------+ + | Care Assistant Baseball Coach Name | Role | Phone | [...] | Diagnoses | Beulah | Edu Pt Waste Elimination | | | | Therapy | CRPS | Janak Martinez MD | Chh1 [address] | | | | | (complex | [address] | | | | | regional | [address] | Mailcode: | | | | | pain | Mailstop | [facility] | | | | | syndrome), | [id number] | for Health | | | | | lower limb | [place], [place] | and Healing, | | | | | Gait | [address] | Building 1 | | | | | disturbance | Phone: | [place], [place] | | | | | Muscle pain | [phone] | [address] | | | | | Procedures | Fax: | Phone: | | | | | PHYSICAL | [phone] | [phone] | | | | | THERAPY | [...] | | | | [address] | [place] [address] | syndrome), lower | | | | [address] | [phone] | limb (Primary Dx) | | | | [facility] | | | | | | and Healing, | | | | | | Building 1, | | | | | | Floor [place], [place] | | | | | | [address] | | | | | | [phone] | | | +--------+---------+ + + + [...] might be different f rom the original. [id number] BRODY FARAH Date of : 1990 Start of care: 02/14/2012 Date of onset: 02/14/2012 Referring/Attending Practitioner: Janak Riojas MD . Primary/Referral Diagnosis/ICD-9: 355.71B CRPS (complex regional pain syndrome), lower limb Insurance: Payor: [facility] Context Relevant Plan: BCBS OUT OF STATE Product Type: PP O Service period from: 02/14/2012 to: 08/12/2012 Number visits used/authorized: 04/25 [facility] PHYSICAL THERAPY PROGRESS NOTE SUBJECTIVE: Age: [...] change in their status. Guillermo Sanon MSPT [facility] Outpatient Rehabilitation Services Mailcode: Ch3p 7103 [facility], [address] [place] [address] documented in this encounter Plan of Treatment Not on filedocumented as of this encounter Procedures + +--------+ + + + | Procedure Name | Priori | Date/Time | Associated Diagnosis | Comments | | | ty | | | | + +--------+ + + + | [place] THERAPEUTIC | Routin | 06/13/2012 | CRPS [...]
--- OUTSIDE RECORDS SUMMARY | ~2020-05-26 | XMS | Encounter Summary ---
Demographics + + + | Address | [address] | | | [place] [address] | + + + | Home Phone [...] Providers + +------+ + | Care Liquid Sugar Fortifier Name | Role | Phone | + [...] ogy | | Ava Torres, | Chh2 [address] | | | | | Constipation | [address] | [address] | | | | | , | [address] | [place] for | | | | | unspecified | [address] | Health and | | | | | constipation | [facility] [place] | Healing, | | | | | type | [address] | Building 2 | | | | | Procedures | | [place], [place] | | | | | CONSULT TO | | [address] | | | | | GI PROCEDURE | | Phone: | | | | | UNIT: | | [phone] | | | | | ANORECTAL | | Fax: | | | | | MANOMETRY | | [phone] | | | | | [place] ANAL | | | | | | | PRESSURE | | | | | | | RECORD | | | +--------+--------+ + + + + Encounter Details +--------+ + + + + | Date | Type | Department | Care Team | Description | +--------+ + + + + | 09/14/ | Hospital | [facility] | Nurse, Gip [address] | | | 2016 | Encounter | [address] | [address] [facility] | | | | | [address] [facility] for | Road [place], [place] | | | | | Health and Healing, | [address] | | | | | Building 2 | | | | | | [place], [place] | | | | | | [address] | | | | | | [phone] | | | +--------+ + + + [...]
--- OUTSIDE RECORDS SUMMARY | ~2020-05-26 | XMS | Encounter Summary ---
Demographics + + + | Address | [address] | | | [place] [address] | + + + | Home Phone [...] | | | | | Procedures | [place], [place] | | | | | | MR | [id number] | | | | | | ENTEROGRAPHY [...] | | | | | Procedures | [place], [place] | | | | | | MR | [id number] | | | | | | ENTEROGRAPHY [...] [facility] | [address] | | | | | [address] | [place], [place] | | | | | [address] [facility] | [address] | | | | | [facility] | [phone] | | | | | [place], [place] | | | | | | [address] | | | | | | [phone] | | | +--------+ + + + [...]
--- OUTSIDE RECORDS SUMMARY | ~2020-05-26 | XMS | Encounter Summary ---
Demographics + + + | Address | [address] | | | [place] [address] | + + + | Home Phone [...] Team Providers + +------+ + | Care Crab Meat Processor Name | Role | Phone | [...] | | 2017 | | Center at [facility] [address] | | Review | | | | [facility] | | | | | | for Health and | | | | | | [facility] 2 | | | | | | [place], [place] | | | | | | [address] | | | | | | [phone] | | | +--------+ + + + [...]
--- OUTSIDE RECORDS SUMMARY | ~2020-05-26 | XMS | Encounter Summary ---
Demographics + + + | Address | [address] | | | [place] [address] | + + + | Home Phone [...] Providers + +------+ + | Care Energy And Conservation Technician Name | Role | Phone | + +------+ + | Justo Vazquez MD | PCP | | + +------+ + Encounter Details +--------+ + + + + | Date | Type | Department | Care Team | Description | +--------+ + + + + | 08/07/ | Telephone | [facility] | Alex Sanchez, | | | 2019 | | Pain Center at | ,PhD [address] | | | | | [facility] | [address] | | | | | [address] | [place], [place] | | | | | [place] for [facility] | [address] | | | | | and Healing, | [phone] | | | | | | | | | | | Floor [place], [place] | | | | | | [address] | | | | | | [phone] | | | +--------+ + + + [...]
--- OUTSIDE RECORDS SUMMARY | ~2020-05-26 | XMS | Encounter Summary ---
Demographics + + + | Address | [address] | | | [place] [address] | + + + | Home Phone [...] Team Providers + +------+ + | Care Engineer Sergeant Name | Role | Phone | + +------+ + | Allegra Gandhi | PCP | | + +------+ + Encounter Details +--------+ + + + + | Date | Type | Department | Care Team | Description | +--------+ + + + + | 02/13/ | Outside | UNKNOWN DEPARTMENT | Other, Faculty | | | 2011 | Records | [address] [facility] | [phone] | | | | | [address] | | | | | | [place], [place] | | | | | | [address] | | | +--------+ + + + [...]
--- OUTSIDE RECORDS SUMMARY | ~2020-05-26 | XMS | Encounter Summary ---
Demographics + + + | Address | [address] | | | [place] [address] | + + + | Home Phone [...] Providers + +------+ + | Care Security Guard Name | Role | Phone | [...] with nausea | [address] | [address] [place], | | | | | Complex | Rd | [place] | | | | | regional | [place], [place] | [address] | | | | | pain | [address] | Phone: | | | | | syndrome | Phone: | [phone] | | | | | type 1 of | [phone] | Fax: | | | | | left lower | Fax: | [phone] | | | | | extremity | [phone] | | | | | | Procedures [...] | | | | | unspecified | [facility] | [address] | | | | | location | Rd | [facility] | | | | | Procedures | [place], [place] | Rd [place], | | | | | CONSULT TO | [address] | [place] | | | | | PAIN | | [address] | | | | | MANAGEMENT | | Phone: | | | | | | | [phone] | | | | | | | Fax: | | | | | | | [phone] | +--------+--------+ + + + + Encounter Details +--------+---------+ + + + | Date | Type | Department | Care Team | Description | +--------+---------+ + + + | 04/19/ | Office | [facility] Ilene | Alex Sanchez, | Intractable cyclical | | 2018 | Visit | Pain Center at | ,PhD [address] | vomiting with | | | | [facility] | [address] | nausea (Primary Dx); | | | | [address] | [place], [place] | Complex regional | | | | [place] 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 PAINBRIEF: [employer] Brief Pain Inventory: (ten= worst possible pain [...] Trial spinal cord stimulator leads 08/02/2012 [facility], Surgeon: Janak Riojas MD Cholecystectomy Appendectomy [...] History Social History Narrative Single. Goes to [employer] with a light load. Has been working at [employer], can' t work on crmeetsches. Has roommates. Allergies Allergen Reactions Morphine Anaphylaxis [...] by physician. Concentration is 150mg/mL. Compounded by [facility] ( [phone]) KETOROLAC IM Inject into the muscle (IM). [...] to her by Christie Madrid MD in [place]. As she chowdhury s since left [...] unclear etiology. [facility] and [facility] greatly [facility] [...] Follow up as needed Alex Sanchez MD,PhD [facility] 3 :41 PM PDTSmithCharline [...]
--- OUTSIDE RECORDS SUMMARY | ~2020-05-26 | XMS | Encounter Summary ---
Demographics + + + | Address | [address] | | | [place] [address] | + + + | Home Phone [...] Team Providers + +------+ + | Care Shade Cutter Name | Role | Phone | [...] | | | | | syndrome | [facility] | | | | | type 1 of | Rd | Rd [place], | | | | | left lower | [facility] [place] | [place] | | | | | extremity | [address] | [address] | | | | | Procedures | Phone: | Phone: | | | | | REQUEST TO | [phone] | [phone] | | | | | SURGERY | Fax: | Fax: | | | | | FELT HAT POUNCING OPERATOR HAND | [phone] | [phone] | +--------+---------+ + + + + Physical [...] | | | | regional | ,PhD [address] | [facility] | | | | | pain | [address] [facility] | [address] | | | | | syndrome | [facility] | [address] | | | | | type 1 of | Rd | [place] | | | | | left lower | [place], [place] | [address] | | | | | extremity | [address] | Phone: | | | | | Procedures | Phone: | [phone] | | | | | PHYSICAL | [phone] | Fax: | | | | | THERAPY | Fax: | [phone] | | | | | REFERRAL | [phone] | | +--------+--------+ + + + + [...] | | | | | Procedures | [place], [place] | Rd [place], | | | | | CONSULT TO | [address] | [place] | | | | | PAIN | | [address] | | | | | MANAGEMENT | | Phone: | | | | | | | [phone] | | | | | | | Fax: | | | | | | | [phone] | +--------+--------+ + + + + Encounter Details +--------+---------+ + + + | Date | Type | Department | Care Team | Description | +--------+---------+ + + + | 06/12/ | Office | [facility] Comprehensive | Alex Sanchez, | Complex regional | | 2018 | Visit | Pain Center at | ,PhD [address] [facility] | pain syndrome type 1 | | | | [facility] | [facility] [address] | of left lower | | | | [address] | [place], [place] | extremity (Primary | | | | Center for Health | [address] | Dx) | | | | and Healing, | [phone] | | | | | | | | | | | Floor [place], [place] | | | | | | [address] | | | | | | [phone] | | | +--------+---------+ + + + [...] in the future, please contact me via Scards to request an order to schedule. The procedure you discussed with your doctor is called: SCS DRG TRIAL LUMBAR [facility]. Please make sure this is scheduled with the Monomer Recovery Operator. PRE-PROCEDURE INSTRUCTIONS 1. Please bring a driver starting gate with you as we may give you medications that impair your ability to drive. This is necessary even if you do not receive sedation. You may take a taxi or ri [employer] [facility] if you are accompanied by a responsible [...] 2 weeks before your procedure, please contact [facility] to cl arify your instructions. The phone number for questions or concerns is [phone]. documented in this encounter Progress Notes Holly [...] MD,P hD - 06/12/2018 10:00 AM PDT [facility] Return Visit Date: 06/12/2018 Chief Complaint Patient presents with Pain in left leg History of Present Illness: Tracie Farah is a 28 year old female, whose last appoi ntment at the [facility] was May 08, 2018, [...] that this mildly agitated her neck pain. [employer] Brief Pain Inventory: (ten= worst possible pain [...] Trial spinal cord stimulator leads 08/02/2012 [facility], Surgeon: Janak Riojas MD Cholecystectomy Appendectomy [...] History Social History Narrative Single. Goes to [employer] with a light load. Has been working at [employer], can' t work on [employer]. Has roommates. Allergies Allergen Reactions Morphine Anaphylaxis [...] by physician. Concentration is 150mg/mL. Compounded by [facility] ) KETOROLAC IM Inject into the [...] as directed by [facility] Digestive Health- 2 gallon bowel [...] and summary of old medical records (source: [employer]), as summarized in the body of the [...] to send me a mess age via Scards to request referrals to acupuncture and massage [...] by Sonia Key. Alex Sanchez MD PhD Balance And Hairspring Assembler Anesthesiology and Pain Management [facility] documented in t his encounter Plan [...]
--- OUTSIDE RECORDS SUMMARY | ~2020-05-26 | XMS | Encounter Summary ---
Demographics + + + | Address | [address] | | | [place] [address] | + + + | Home Phone [...] Providers + +------+ + | Care Supervisor [place] Name | Role | Phone | + [...] | 2016 | Encounter | Center at [facility] [address] | | results | | | | [address] [facility] | | | | | | for Health and | | | | | | Healing, Building 2 | | | | | | [place], [place] | | | | | | [address] | | | | | | [phone] | | | +--------+ + + + [...]
--- OUTSIDE RECORDS SUMMARY | ~2020-05-26 | XMS | Encounter Summary ---
Demographics + + + | Address | [address] | | | [place] [address] | + + + | Home Phone [...] + +------+ + | Care Medical Billing Manager Name | Role | Phone | + +------+ + | Justo Vazquez MD | PCP | | + +------+ + Encounter Details +--------+ + + + + | Date | Type | Department | Care Team | Description | +--------+ + + + + | 01/02/ | Telephone | [facility] | Ilene Bright, | | | 2019 | | Pain Center at | CALCULATING MACHINE MECHANIC [address] | | | | | [facility] | [place], [place] | | | | | [address] | [address] | | | | | [place] for [facility] | [phone] | | | | | and Healing, | | | | | | | | | | | | Floor [place], [place] | | | | | | [address] | | | | | | [phone] | | | +--------+ + + + [...]
--- OUTSIDE RECORDS SUMMARY | ~2020-05-26 | XMS | Encounter Summary ---
Demographics + + + | Address | [address] | | | [place] [address] | + + + | Home Phone [...] Providers + +------+ + | Care Audit Director Name | Role | Phone | [...] | [facility] | Aleta Rebollar MD [address] | Nausea | | 2018 | | Pain Center at | [address] | | | | | [facility] | [place], [place] | | | | | [address] | [address] | | | | | [place] for Health | [phone] | | | | | and Healing, | | | | | | Building | | | | | | [place], [place] | | | | | | [address] | | | | | | [phone] | | | +--------+ + + + [...]
--- OUTSIDE RECORDS SUMMARY | ~2020-05-26 | XMS | Encounter Summary ---
Demographics + + + | Address | [address] | | | [place] [address] | + + + | Home Phone [...] Providers + +------+ + | Care Medical Technologist Blood Bank Name | Role | Phone | + [...] Medication Question | | 2016 | | [place] [address] [address] | | | | | | [address] [facility] | | | | | | for Health and | | | | | | Healing, [facility] 2 | | | | | | [place], [place] | | | | | | [address] | | | | | | [phone] | | | +--------+ + + + [...]
--- OUTSIDE RECORDS SUMMARY | ~2020-05-26 | XMS | Encounter Summary ---
Demographics + + + | Address | [address] | | | [place] [address] | + + + | Home Phone [...] Team Providers + +------+ + | Care Ambulatory Care Nurse Name | Role | Phone | [...] | | [address] [facility] for | [place], [place] | | | | | Health and Healing, | [address] | | | | | | [phone] | | | | | [place], [place] | | | | | | [address] | | | | | | [phone] | | | +--------+ + + + [...] Note | + + | Service Account, [employer] Res In Interface - 03/08/2018 9:42 AM [...]
--- OUTSIDE RECORDS SUMMARY | ~2020-05-26 | XMS | Encounter Summary ---
Demographics + + + | Address | [address] | | | [place] [address] | + + + | Home Phone [...] Team Providers + +------+ + | Care Monitor And Storage Bin Tender Name | Role | Phone | + +------+ + | Justo Vazquez MD | PCP | | + +------+ + Encounter Details +--------+ + + + + | Date | Type | Department | Care Team | Description | +--------+ + + + + | 01/02/ | Telephone | [facility] | Ilene Bright, | | | 2019 | | Pain Center at | MAINTENANCE SUPERVISOR ELECTRICAL [address] | | | | | [facility] | [place], [place] | | | | | [address] | [address] | | | | | [place] for [facility] | [phone] | | | | | and Healing, | | | | | | | | | | | | Floor [place], [place] | | | | | | [address] | | | | | | [phone] | | | +--------+ + + + [...]
--- OUTSIDE RECORDS SUMMARY | ~2020-05-26 | XMS | Encounter Summary ---
Demographics + + + | Address | [address] | | | [place] [address] | + + + | Home Phone [...] Providers + +------+ + | Care Safety And Skill Based Pay Manager Name | Role | Phone | + +------+ + | Justo Vazquez MD | PCP | | + +------+ + Encounter Details +--------+ + + + + | Date | Type | Department | Care Team | Description | +--------+ + + + + | 06/12/ | Hospital | Radiology/Imaging | Alex Sanchze, | | | 2018 | Encounter | Lab at [facility] [address] | ,PhD [address] [facility] | | | | | [facility] for | [facility] | | | | | Health and [facility], | [place], [place] | | | | | [place] [address] [facility] | [address] | | | | | Floor [place], [place] | [phone] | | | | | [address] | | | | | | [phone] | | | +--------+ + + + [...]
--- OUTSIDE RECORDS SUMMARY | ~2020-05-26 | XMS | Encounter Summary ---
Demographics + + + | Address | [address] | | | [place] [address] | + + + | Home Phone [...] Team Providers + +------+ + | Care Glove Turner And Former Name | Role | Phone | [...] Rd | | | | | | [place], [place] | | | | | | [address] | | | +--------+ + + + [...]
--- OUTSIDE RECORDS SUMMARY | ~2020-05-26 | XMS | Encounter Summary ---
Demographics + + + | Address | [address] | | | [place] [address] | + + + | Home Phone [...] Team Providers + +------+ + | Care Fruit Or Nut Farm Worker Name | Role | Phone | + +------+ + | Justo Vazquez MD | PCP | | + +------+ + Encounter Details +--------+ + + + + | Date | Type | Department | Care Team | Description | +--------+ + + + + | 04/03/ | Telephone | [facility] | Alex Sanchez, | | | 2019 | | Pain Center at | ,PhD [address] | | | | | [facility] | [address] | | | | | [address] | [place], [place] | | | | | [place] for [facility] | [address] | | | | | and Healing, | [phone] | | | | | | | | | | | Floor [place], [place] | | | | | | [address] | | | | | | [phone] | | | +--------+ + + + [...]
--- OUTSIDE RECORDS SUMMARY | ~2020-05-26 | XMS | Encounter Summary ---
Demographics + + + | Address | [address] | | | [place] [address] | + + + | Home Phone [...] Providers + +------+ + | Care Machine Group Leader Name | Role | Phone | [...] | | | [address] | [facility] | | | | | [place], [place] | [place], [place] | | | | | [address] | [address] | | | | | | [phone] | | | | | | | [...] | + +--------+ + + + | FUR CUTTING MACHINE OPERATOR MISC PROCEDURE | Routin | 12/27/2017 | Complex regional | Results for this | | | e | 3:28 PM | pain syndrome type 1 | procedure are in the | | | | PST | of left lower | results section. | | | | | extremity | | + +--------+ + + + documented in this encounter Results [facility] MISC PROCEDURE (12/27/2017 3:28 [...]
--- OUTSIDE RECORDS SUMMARY | ~2020-05-26 | XMS | Encounter Summary ---
Demographics + + + | Address | [address] | | | [place] [address] | + + + | Home Phone [...] Team Providers + +------+ + | Care Ethylene Compressor Operator Name | Role | Phone | [...] | | | | | syndrome | [facility] | [facility] | | | | | type 1 of | Rd | Rd [place], | | | | | left lower | [facility], [place] | [place] | | | | | extremity | [address] | [address] | | | | | Muscle pain | Phone: | Phone: | | | | | Procedures | [phone] | [phone] | | | | | REQUEST TO | Fax: | Fax: | | | | | SURGERY | [phone] | [phone] | | | | | POWERHOUSE LABORER | | | +--------+---------+ + + + [...] | syndrome | [address] [place] | [place] | | | | | type 1 of | Rd | Rd [place], | | | | | left lower | [place], [place] | [place] | | | | | extremity | [address] | [address] | | | | | Muscle pain | Phone: | Phone: | | | | | Procedures | [phone] | [phone] | | | | | REQUEST TO | Fax: | Fax: | | | | | SURGERY | [phone] | [phone] | | | | | POWERHOUSE LABORER | | | | | | | PA INJ,ANES | | | | | | | AGENT,SCIATI | | | | | | | C | | | | | | | NERVE,SINGLE | | | | | | | PA INJECT | | | | | | | NERV | | | | | | | BLCK,OTHR | | | | | | | PERIPH NERV | | | | | | | PA SONO | | | | | | | GUIDE FOR | | | | | | | NEEDLE | | | | | | | PLACEMENT | | | | | | | PA MOD | | | | | | | SEDATION | | | | | | | >=5YRS SAME | | | | | | | MD/QUAL | | | | | | | PROV; INIT | | | | | | | 15 MIN PA | | | | | | | [...] | unspecified | [address] | [address] | | | | | location | Rd | [address] | | | | | Procedures | [facility] [place] | [facility], | | | | | CONSULT TO | [address] | [place] | | | | | PAIN | | [address] | | | | | MANAGEMENT | | Phone: | | | | | | | [phone] | | | | | | | Fax: | | | | | | | [phone] | +--------+--------+ + + + + Encounter Details +--------+---------+ + + + | Date | Type | Department | Care Team | Description | +--------+---------+ + + + | 12/14/ | Office | [facility] | Alex Sanchez, | Complex regional | | 2018 | Visit | Pain Center at | ,PhD [address] | pain syndrome type 1 | | | | [facility] | [facility] [address] | of left lower | | | | [address] | [place], [place] | extremity (Primary | | | | [place] for [facility] | [address] | Dx); Muscle pain; | | | | and Healing, | [phone] | Pain of upper | | | | | | abdomen | | | | Floor [place], [place] | | | | | | [address] | | | | | | [phone] | | | +--------+---------+ + + + [...] the time to see us in the [facility]. It was [...] make sure this is scheduled with the Utility Locate Technician. PRE-PROCEDURE INSTRUCTIONS 1. Please bring a regional refrigerated cdl truck driver with you as we may give you medications that impair your ability to drive. This is necessary even if you do not receive sedation. You may take a taxi or [employer] if you are accompanied by a responsible [...] or blood thinning medications (other than aspirin), [facility] doctor who is doing your procedure will communicate with the provider who is prescribing y our anticoagulant therapy. If you do not have clear instructions on what to do with your an ticoagulant by 2 weeks before your procedure, please contact [facility] to cl arify your instructions. The phone number for questions or concerns is [phone]. documented in this encounter Progress Notes Charline [...] M D,PhD - 12/14/2017 10:25 AM PST [facility] Return Visit Date: 12/14/2017 Chief Complaint Patient presents with Back pain Low back pain Abdominal pain Pain in right leg Pain in left leg History of Present Illness: Tracie Farah is a 27 year old female, whose last appoi ntment at the [facility] [place] was October 11, 2017, for a clinic [...] review treatment plan. * Follow up with [facility] as needed. Today, [...] was treated by Christie Madrid MD in [place], [place] for three years before she abruptly ended her practice due to illness. This left her without a doctor to help her manage her chronic pain. In addition to her CRPS symptoms (diagnosed 2010), she has some sto mach issues that she has been working with Ilene Childs DNP, HAND CANDLE MOLDER-C. She has a scar on her stomach [...] is constant. When she was with Christie Madird MD, their plan was to start her with nasal ketamine and wea n her off of her narcotics. She was previously on multiple narcotic medications and fentanyl patch. She recalls that the next step was to start her on methadone. She feels like she mad e a lot of great improvements while in [place], [place]. Weaning her off of the narcotic [...] her medical history that she spent in [place], [place] where she part ook in a [...] Spinal cord stimulator trial - Nerve blocks DIRECTOR OF SERVICES Brief Pain Inventory: (ten= worst possible [...] stimulator leads 08/02/2012 [facility], Surgeon: Janak Riojas MD Cholecystectomy Appendectomy [...] History Social History Narrative Single. Goes to [employer] with a light load. Has been working at [employer], can' t work on [employer]. Has roommates. Allergies Allergen Reactions Morphine Anaphylaxis [...] by physician. Concentration is 150mg/mL. Compounded by [facility] ( [phone]) LAMOTRIGINE 200 MG TABLET Take 1 tablet [...] Take as directed by [facility]- 2 gallon bowel prep POLYETHYLENE [...] and summary of old medical records (source: [employer]), as summarized in the body of [...] to her by Christie Madrid MD in [place], [place]. As she has since left the [...] I jacqueline poon spoken with our medical staffing coordinator, Evelia Gonzalez MD who agrees that [...] peripheral nerve stimulation. As she lives in [place], [place] with her family (3.5 hours away), [...] by Sonia Key. Alex Sanchez MD PhD Director Of Content Marketing Anesthesiology and Pain Management [facility] Post visit: I reviewed the UDS, [...] | + + + + + | [facility] | [address] | [place] [address] | | | SERVICES, CORE | GUILLERMO [...]
--- OUTSIDE RECORDS SUMMARY | ~2020-05-26 | XMS | Encounter Summary ---
Demographics + + + | Address | [address] | | | [place] [address] | + + + | Home Phone [...] Providers + +------+ + | Care Filler Sifter Machine Name | Role | Phone | [...] Closed | | Orthopedics | Diagnoses | [place], | [facility] | | | | | Adjustment | Ranjeet Odom MD | [address] | | | | | disorder, | [address] | [address] | | | | | unspecified | Ave | Center for | | | | | type | [facility] [place] | Health and | | | | | Procedures | [address] | Healing, | | | | | CONSULT TO | Phone: | Building 1, | | | | | BEHAVIORAL | [phone] | 12th Floor | | | | | HEALTH/PSYCH | Fax: | [place], [place] | | | | | CHRISTINA - | [phone] | [address] | | | | | ADULT | | Phone: | | | | | | | [phone] | | | | | | | Fax: | | | | | | | [phone] | +--------+--------+ + + + + Reason [...] | | syndrome | [address] | [place], [place] | | | | | type 1 of | Rd | [address] | | | | | left lower | [place], [place] | Phone: | | | | | extremity | [address] | [phone] | | | | | Procedures | Phone: | Fax: | | | | | CONSULT TO | [phone] | [phone] | | | | | ORTHOPEDICS | Fax: | | | | | | AND | [phone] | | | | | | REHABILITATI [...] | 2018 | Visit | [facility] at [facility] | [address] | (Primary Dx); Left | | | | for Health and | [place], [place] | ankle pain, | | | | Healing [address] | [address] | unspecified | | | | [facility] for | [phone] | chronicity; | | | | Health and Healing, | | Adjustment disorder, | | | | Building | | unspecified type | | | | Floor [place], [place] | | | | | | [address] | | | | | | [phone] | | | +--------+---------+ + + + [...] Hemroidectomy Trial spinal cord stimulator leads 08/02/2012 [facility], Surgeon: Janak Riojas MD Cholecystectomy Appendectomy [...] by physician. Concentration is 150mg/mL. Compounded by [employer] ([phone]) levonorgestrel (MIRENA) 20 mcg/24 hr Intrauterine IUD [...] oral recon soln Take as directed by [facility] [facility]- 2 gallon bowel prep polyethylene glycol 17 [...] the [facility] and personally formulated the plan with the [...] become. f/u open ended Ranjeet Amanda M.D. Ward Helper Foot and Ankle Surgery Department of Orthopedics & Rehabilitation [facility] [phone] >60 mins face to face consultation was [...]
--- OUTSIDE RECORDS SUMMARY | ~2020-05-26 | XMS | Encounter Summary ---
Demographics + + + | Address | [address] | | | [place] [address] | + + + | Home Phone [...] Providers + +------+ + | Care Central Office Operator Supervisor Name | Role | Phone [...] | | | | [address] [place] | [facility] [place] | | | | | for Health and | [address] | | | | | Healing, Building [address] | [phone] | | | | | [place], [place] | | | | | | [address] | | | | | | [phone] | | | +--------+ + + + [...]
--- OUTSIDE RECORDS SUMMARY | ~2020-05-26 | XMS | Encounter Summary ---
Demographics + + + | Address | [address] | | | [place] [address] | + + + | Home Phone [...] Providers + +------+ + | Care Elementary School Social Worker Name | Role | Phone | [...] [address] | | | | | [facility] | [facility], | | | | | [address] | [place] [address] | | | | | [facility] | [phone] | | | | | and Healing, | | | | | | [facility] | | | | | | [place], [place] | | | | | | [address] | | | | | | [phone] | | | +--------+ + + + [...]
--- OUTSIDE RECORDS SUMMARY | ~2020-05-26 | XMS | Encounter Summary ---
Demographics + + + | Address | [address] | | | [place] [address] | + + + | Home Phone [...] Team Providers + +------+ + | Care Brim Edge Trimmer Name | Role | Phone | [...]
--- OUTSIDE RECORDS SUMMARY | ~2020-05-26 | XMS | Encounter Summary ---
Demographics + + + | Address | [address] | | | [place] [address] | + + + | Home Phone [...] Providers + +------+ + | Care Desktop Architect Name | Role | Phone | + +------+ + | Justo Vazquez MD | PCP | | + +------+ + Encounter Details +--------+ + + + + | Date | Type | Department | Care Team | Description | +--------+ + + + + | 01/11/ | Procedure | Diagnostic Imaging | | | | 2016 | Pass | Services at [facility] | | | | | | [address] | | | | | | Giuliana Roberson | | | | | | [facility] | | | | | | [place], [place] | | | | | | [address] | | | | | | [phone] | | | +--------+ + + + [...]
--- OUTSIDE RECORDS SUMMARY | ~2020-05-26 | XMS | Encounter Summary ---
Demographics + + + | Address | [address] | | | [place] [address] | + + + | Home Phone [...] Providers + +------+ + | Care Rig Manager Name | Role | Phone | [...] + | 10/06/ | Telephone | [facility] | Yosef Kenney MD | Dermatitis | | 2018 | | Pain Center at | [address] | | | | | [facility] | [facility] | | | | | [address] | [place] [address] | | | | | [facility] | [phone] | | | | | and Healing, | | | | | | [facility] | | | | | | [place], [place] | | | | | | [address] | | | | | | [phone] | | | +--------+ + + + [...]
--- OUTSIDE RECORDS SUMMARY | ~2020-05-26 | XMS | Encounter Summary ---
Demographics + + + | Address | [address] | | | [place] [address] | + + + | Home Phone [...] Team Providers + +------+ + | Care Executive Administrative Asst Name | Role | Phone | + [...] + + | 09/14/ | Telephone | [facility] [place] | Alex Sanchez, | Education procedure | | 2018 | | Pain Center at | ,PhD [address] | (preprocedure | | | | [facility] | [address] | education [employer]) | | | | [address] | [place], [place] | | | | | [facility] | [address] | | | | | and Healing, | [phone] | | | | | | | | | | | Floor [place], [place] | | | | | | [address] | | | | | | [phone] | | | +--------+ + + + [...]
--- OUTSIDE RECORDS SUMMARY | ~2020-05-26 | XMS | Encounter Summary ---
Demographics + + + | Address | [address] | | | [place] [address] | + + + | Home Phone [...] Providers + +------+ + | Care Manager Utilization Management Name | Role | Phone | + [...] Center at [facility] [address] | | Review | | | | [address] [facility] | | | | | | for Health and | | | | | | [facility], [facility] 2 | | | | | | [place], [place] | | | | | | [address] | | | | | | [phone] | | | +--------+ + + + [...]
--- OUTSIDE RECORDS SUMMARY | ~2020-05-26 | XMS | Encounter Summary ---
Demographics + + + | Address | [address] | | | [place] [address] | + + + | Home Phone [...] Providers + +------+ + | Care Information Assurance Officer Name | Role | Phone | + +------+ + | Justo Vazquez MD | PCP | | + +------+ + Encounter Details +--------+ + + + + | Date | Type | Department | Care Team | Description | +--------+ + + + + | 12/27/ | Ancillary | [facility] | Alex Sanchez, | | | 2018 | Orders | Pain Center at | ,PhD [address] | | | | | [facility] | [address] | | | | | [address] | [place], [place] | | | | | [place] [facility] | [address] | | | | | and Healing, | [phone] | | | | | | | | | | | Floor [place], [place] | | | | | | [address] | | | | | | [phone] | | | +--------+ + + + [...]
--- OUTSIDE RECORDS SUMMARY | ~2020-05-26 | XMS | Encounter Summary ---
Demographics + + + | Address | [address] | | | [place] [address] | + + + | Home Phone [...] Team Providers + +------+ + | Care Hands And Dial Inspector Name | Role | Phone | [...] | CRPS | Dale Martinez MD | [facility] [address] | | | | | (complex | [address] | Pavilion | | | | | regional | [address] | [address] | | | | | pain | Mailstop | [address], | | | | | syndrome), | [id number] | Basement | | | | | lower limb | [place], [place] | [place], [place] | | | | | Procedures | [address] | [address] | | | | | [place] BONE &/[place] | Phone: | Phone: | | | | | JOINT | [phone] | [phone] | | | | | IMAGING 3 | Fax: | Fax: | | | | | PHASE | [phone] | [phone] | +--------+--------+ + + + + Consult [...] | | | regional | [address] | [address] | | | | | pain | FAMILY | [address] | | | | | syndrome), | MEDICINE P | [address] | | | | | lower limb | [address] | [place], [place] | | | | | Gait | [place], | [address] | | | | | disturbance | [place] [address] | Phone: | | | | | Muscle pain | Phone: | [phone] | | | | | Procedures | [phone] | Fax: | | | | | REQUEST TO | Fax: | [phone] | | | | | SURGERY | [phone] | | | | | | MEN'S BASKETBALL COACH | | | +--------+--------+ + + + + Consultation (Routine) +--------+--------+ + + + + | Status | Reason | Specialty | Diagnoses / | Referred By | Referred To | | | | | Procedures | Contact | Contact | +--------+--------+ + + + + | Closed | | Psychology / | Diagnoses | 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[place], | 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 Psych | | | | Pain | CRPS | Dale Martinez MD | [address]1 [address] | | | | Management | (complex | [address] | | | | | regional | [address] | Center for | | | | | pain | [address]stop | Health and | | | | | syndrome), | [address] | Healing, | | | | | lower limb | [place], [place] | Building | | | | | Gait | [address] | 1,15th Floor | | | | | disturbance | Phone: | [place], [place] | | | | | Muscle pain | [phone] | [address] | | | | | Procedures | Fax: | Phone: | | | | | CONSULT TO | [phone] | [phone] | | | | | PAIN CENTER | | Fax: | | | | | | | [phone] | +--------+--------+ + + + + Physical Therapy (Routine) +--------+--------+ + + + + | Status | Reason | Specialty | Diagnoses / | Referred By | Referred To | | | | | Procedures | Contact | Contact | +--------+--------+ + + + + | Closed | | Physical | Diagnoses | Beulah, | Edu Pt 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 | | | | Therapy | CRPS | Dale Martinez MD | [address] | | | | | (complex | [address] | | | | | regional | [address] | Mailcode: | | | | | pain | Mailstop | [facility] | | | | | syndrome), | [id number] | for Health | | | | | lower limb | [place], [place] | and Healing, | | | | | Gait | [address] | [facility] 1 | | | | | disturbance | Phone: | [place], [place] | | | | | Muscle pain | [phone] | [address] | | | | | Procedures | Fax: | Phone: | | | | | PHYSICAL | [phone] | [phone] | | | | | THERAPY | [...] | | 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 | FAMILY | [address] | | | | | of lower | MEDICINE P | [id number] | | | | | limb | [address] | [place], [place] | | | | | | [place], | [address] | | | | | | [place] [address] | Phone: | | | | | | Phone: | [phone] | | | | | | [phone] | Fax: | | | | | | Fax: | [phone] | | | | | | [phone] | | +--------+--------+ + + + + Encounter Details +--------+---------+ + + + | Date | Type | Department | Care Team | Description | +--------+---------+ + + + | 02/13/ | Office | [place] [facility] | Dale Cantu, | CRPS (complex | | 2011 | Visit | Pain Center at | MD [address] | regional pain | | | | [facility] | [facility] [id number] | syndrome), lower | | | | [address] | [place], [place] | limb; Gait | | | | Center for Health | [address] | disturbance; Muscle | | | | and Healing, | [phone] | pain; Adjustment | | | | | | reaction | | | | Floor [place], [place] | | | | | | [address] | | | | | | [phone] | | | +--------+---------+ + + + [...] Diagnostic evaluation: Records from CRPS program at [facility]. Suggest three phase bone s [...] employed by the psychologists here at the [facility]. 2.2 Physical therapy can reduce pain and improve functional status. Suggest Guillermo Sanon . 3. Medication suggestions: 3.1 Continue titrating up duloxetine. 3.2 As for any patient being managed with chronic opioids, we do recommend that the patien t have a signed [facility] Material Risk Notice, agree to [...] sintia sure this is scheduled with the Wine Consultant. Please bring a boom truck driver with you. We may give you medications that make you drowsy or otherw ise unsafe to drive. If you do not have a boom truck driver, we will not be able [...] PLEASE CONTACT THE COM[facility]ENSIVE PAIN CENTER AT [phone] ([phone]) FOR QUESTIONS OR IF YOU NEED TO CANCEL YOUR APPOINTMENT. [facility] documented in this encounter [...] pain management consultation by BJORN Mi [place] [facility] [address] [place] [address] Reason for visit Chief Complaint Patient presents with Pain in left leg Ankle pain left History of Present Illness: Tracie Farah is a 21 year old female with pain locate d in left lower extremity. She has been diagnosed with CRPS. She is referred to [facility] for consultation regarding this ongoing pain problem with the following spec [facility] issues to be addressed: Other [...] by several orthopedic surgeons, Dr. Charles in [place], physical therapy, Occupational Therapy. Diagnostic and radiologic [...] no pain relief. Admitted to the inpatient [facility] program for 1 month in the [...] entin, pregabalin, topiramate, tramadol, multiple opioids. Current [place] about 6-8/day. St arting duloxetine, at 30 mg/day. She feels that the most effective medication treatments ar e or have been opioids. As a result of her pain, Ms. Farah notes multiple changes in her life, including: "I don 't have a life, can't work, can't go to school." Poor mood, sleep, activity. Using crutche s recently because of pain flare. SPONSORSHIP MANAGER Brief Pain Inventory: (ten= worst possible [...] History Social History Narrative Single. Goes to [employer] with a light load. Has been working at [employer], can' t work on [employer]. Has roommates. Current Medication List 02/14/12 9:50 [...] Anaphylaxis As part of today's visit the [facility] new patient questionnaire [...] the pediatric inpatient pain program at [facility], and two attempted lumbar sympathetic blocks. [...] CRPS patients (Loretta Rousseau, et al. Katrina Fire Crew Specialist Med. 2010;152: 152-158). Other treatment options [...] Diagnostic [facility]: [facility] Suggest three ph ase bone [...] employed by the psychologists [facility] at [facility]. ORDER PLACED 2.2 Physical therapy can reduce pain and improve functional status. Suggest Guillermo Sanon . ORDER PLACED 3. Medication suggestions: 3.1 Continue titrating up duloxetine. 3.2 As for any patient being managed with chronic opioids, we do recommend that the patien t have a signed [facility] Material Risk Notice, agree to [...] her PCP, BJORN Villanueva. DALE CANTU MD Medical Dosimetrist, [facility] Photoengraving Printer, Pain Medicine Professor, Anesthesiology & Perioperative Medicine [...] | + +---------+ + + | [facility] DEPARTMENT OF | | | | | [...]
--- OUTSIDE RECORDS SUMMARY | ~2020-05-26 | XMS | Encounter Summary ---
Demographics + + + | Address | [address] | | | [place] [address] | + + + | Home Phone [...] Providers + +------+ + | Care Cigar Packing Examiner Name | Role | Phone | [...] + + | 09/30/ | Telephone | [facility] Ilene | Ilene Bright, | Phone communication | | 2017 | | Pain Center at | ACADEMY EDUCATION DIRECTOR [address] | | | | | [facility] | [place], [place] | | | | | [address] | [address] | | | | | [facility] | [phone] | | | | | and Healing, | | | | | | Building | | | | | | Floor [facility] [place] | | | | | | [address] | | | | | | [phone] | | | +--------+ + + + [...]
--- OUTSIDE RECORDS SUMMARY | ~2020-05-26 | XMS | Encounter Summary ---
Demographics + + + | Address | [address] | | | [place] [address] | + + + | Home Phone [...] Team Providers + +------+ + | Care Greaser And Oiler Name | Role | Phone | + +------+ + | Justo Vazquez MD | PCP | | + +------+ + Encounter Details +--------+ + + + + | Date | Type | Department | Care Team | Description | +--------+ + + + + | 12/02/ | Document-Sc | Health Information | Unknown . | | | 2017 | anned | Services [address] | | | | | [address] | | | | | | Mailcode: [id number] | | | | | | [facility] | | | | | | [place], [place] | | | | | | [address] | | | | | | [phone] | | | +--------+ + + + [...]
--- OUTSIDE RECORDS SUMMARY | ~2020-05-26 | XMS | Encounter Summary ---
Demographics + + + | Address | [address] | | | [place] [address] | + + + | Home Phone [...] Team Providers + +------+ + | Care Casing Crew Name | Role | Phone | + [...] + + | 10/30/ | Refill | [facility] | Alex Sanchez, | Refill Request | | 2018 | | Pain Center at | ,PhD [address] [facility] | | | | | [facility] | [address] | | | | | [address] | [place], [place] | | | | | [facility] | [address] | | | | | and Martina, | [phone] | | | | | [facility] | | | | | | Floor [place], [place] | | | | | | [address] | | | | | | [phone] | | | +--------+--------+ + + + [...]
--- OUTSIDE RECORDS SUMMARY | ~2020-05-26 | XMS | Encounter Summary ---
Demographics + + + | Address | [address] | | | [place] [address] | + + + | Home Phone [...] Team Providers + +------+ + | Care Aging Box Hand Name | Role | Phone | [...] | | | | regional | ,PhD [address] | | | | | | pain | [address] | | | | | | syndrome | [address] | | | | | | type [address] of | Rd | | | | | | left lower | [place], [place] | | | | | | extremity | [address] | | | | | | Procedures | Phone: | | | | | | PHYSICAL | [phone] | | | | | | THERAPY | Fax: | | | | | | REFERRAL | [phone] | | +--------+--------+ + + + + Encounter Details +--------+ + + + + | Date | Type | Department | Care Team | Description | +--------+ + + + + | 01/22/ | Telephone | [facility] Comprehensive | Alex Sanchez, | | | 2019 | | Pain Center at | ,PhD [address] [facility] | | | | | [facility] | [facility] | | | | | [address] | [place], [place] | | | | | [facility] | [address] | | | | | and Martina, | [phone] | | | | | | | | | | | Floor [place], [place] | | | | | | [address] | | | | | | [phone] | | | +--------+ + + + [...]
--- OUTSIDE RECORDS SUMMARY | ~2020-05-26 | XMS | Encounter Summary ---
Demographics + + + | Address | [address] | | | [place] [address] | + + + | Home Phone [...] Providers + +------+ + | Care Night Clerk Name | Role | Phone | [...] 2017 | | Center at [facility] [address] | | | | | | [facility] | | | | | | for Health and | | | | | | Healing, Building 2 | | | | | | [place], [place] | | | | | | [address] | | | | | | [phone] | | | +--------+--------+ + + + [...]
--- OUTSIDE RECORDS SUMMARY | ~2020-05-26 | XMS | Encounter Summary ---
Demographics + + + | Address | [address] | | | [place] [address] | + + + | Home Phone [...] Team Providers + +------+ + | Care Flap Maker Name | Role | Phone | + +------+ + | Justo Vazquez MD | PCP | | + +------+ + Encounter Details +--------+ + + + + | Date | Type | Department | Care Team | Description | +--------+ + + + + | 09/25/ | Pharmacy | [facility] | | | | 2018 | Visit | [facility] | | | | | | [address] | | | | | | Mailcode: [place] | | | | | | [facility] | | | | | | Healing, [address] | | | | | | [place], [place] | | | | | | [address] | | | | | | [phone] | | | +--------+ + + + [...]
--- OUTSIDE RECORDS SUMMARY | ~2020-05-26 | XMS | Encounter Summary ---
Demographics + + + | Address | [address] | | | [place] [address] | + + + | Home Phone [...] Providers + +------+ + | Care Roof Bolter Operator Name | Role | Phone | [...] ogy | | Ava Torres, | [address] | | | | | Constipation | [address] | [address] | | | | | , | [address] | [place] for | | | | | unspecified | [address] | Health and | | | | | constipation | [facility] [place] | Healing, | | | | | type | [address] | Building 2 | | | | | Procedures | | [place], [place] | | | | | CONSULT TO | | [address] | | | | | GI PROCEDURE | | Phone: | | | | | UNIT: | | [phone] | | | | | ANORECTAL | | Fax: | | | | | MANOMETRY | | [phone] | | | | | HI ANAL | | | | | | [...] | ogy | | Vijigaldon, | [address] | | | | | Gastroparesi | Allegra Nieto, | [address] | | | | | s | [place] [address] | Center for | | | | | | [address] | Health and | | | | | | [place], | Healing, | | | | | | [place] [address] | Building 2 | | | | | | Phone: | [place], [place] | | | | | | [phone] | [address] | | | | | | Fax: | Phone: | | | | | | [phone] | [phone] | | | | | | | Fax: | | | | | | | [phone] | +--------+--------+ + + + + Encounter Details +--------+---------+ + + + | Date | Type | Department | Care Team | Description | +--------+---------+ + + + | 08/10/ | Office | Digestive Health | Ava Carbajal | Constipation, | | 2015 | Visit | Center at [facility] [address] | MD Melissa | unspecified | | | | [facility] | | constipation type | | | | for Health and | | (Primary Dx) | | | | Healing, [address] 2 | | | | | | [place], [place] | | | | | | [address] | | | | | | [phone] | | | +--------+---------+ + + + [...] in their attached note. Celia Lin MD Lidar Analystlife science research assistant Division of Gastroenterology & Hepatology [facility] va Carbajal MD - 08/09/2016 8:40 PM PDT Gastroenterology Initial Clinic Note 08/09/2016 CHIEF COMPLAINT/IDENTIFICATION: "Gastroparesis"-Nausea emesis and abdominal pain -SECOND O GERMAINE Dr. Flores-Radha [facility] PCP: HANDY Villalpando HISTORY OF [...] Dr. Flores in [facility] at [facility]. Patient has hx of GERD which was [...] had CT abdomen w contrast done at [facility] on 10/23/15 showing large stool burden [...] GI MDS: Dr. Nyla Garcia GI Dr. [facility] LABS: -increased CRP 06/19/16: Lipase-normal [...] form versus functional syndrome. 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
--- OUTSIDE RECORDS SUMMARY | ~2020-05-26 | XMS | Clinical Summary ---
Demographics + + + | Address | [address] | | | [place] [address] | + + + | Home Phone [...] | Author | [facility] | + + + | Organization | [facility] | + + + | Address | Unknown | + + + | Phone | Unavailable | + + + Support + + +---------+ + | Name | Relationship | Address | Phone | + + +---------+ + | Patricia Colin | ECON | Unknown | | + + +---------+ + Care Team Providers + +------+ + | Care Railway Engineer Name | Role | Phone | + +------+ + | Justo Vazquez MD | PCP | | + +------+ + Source Comments KEVIN is fully live on both [facility] Ambulatory and [facility] InPatient.[facility] Allergies + + + + + [...] Noted Date | + + + | [facility] CLINICAL PROTOCOL PATIENT (PETER) - Implanted Spinal Cord | 12/14/2018 | | Stimulator | | + + + + + | Overview: Patient has an implanted [employer] spinal | | cord stimulator. Model#: [id number]. Contact [phone] for | | technical assistance.Contraindications:Sources of strong [...] | Right: | BARD | | | [id number] | | Port-10/05/2016Implanted: | | Chest | | | | 0 / | | 10/05/2016 by Obdulio Simpson, | | | | | | /VIKY | | (Quantity not on file) | | | | | | 204 | + +------+--------+ +--------+--------+--------+ + + | Description:Not Power | | Injectable, Progress record | | faxed from [facility] | | Hospital in [place], [place], | | [facility] RN | + + + +---+---+ +---+--------+--------+ | Slimtip DrgImplanted: Qty: 1 | | | ST JESSICA | | 01/06/ | [id number] | | on 12/05/2018 by Daniel, | | | MEDICAL [place] | | 2020 | 0-50A | | Alex Alba MD,PhD at [facility] | | | | | | /[id number] | | INPATIENT REV LOC | | | | | | 371 / | + +---+---+ +---+--------+--------+ + + | Description:Level 4 | + + + +---+---+ +---+---+--------+ | Slimtip DrgImplanted: Qty: 1 | | | ST JESSICA | | | [id number] | | on 12/05/2018 by Daniel, | | | MEDICAL [place] | | | 0-50A | | Alex Alba MD,PhD at [facility] | | | | | | /[id number] | | INPATIENT REV LOC | | [...] / | | Alex Alba MD,PhD at [facility] | | | | | | [...] | | | | | | | [address] | | + +--------+ +--------+ + +--------+ | SALARY AND WAGE ADMINISTRATOR MEDICAID | SALARY AND WAGE ADMINISTRATOR | [id number] | 11/14/19 | | | [...] | 1990 | [phone] | [place] [address] | | | evita | | | [...]
--- OUTSIDE RECORDS SUMMARY | ~2020-05-26 | XMS | Encounter Summary ---
Demographics + + + | Address | [address] | | | [place] [address] | + + + | Home Phone [...] Team Providers + +------+ + | Care Nanosystems Engineer Name | Role | Phone | [...] | | | | regional | ,PhD [address] | | | | | | pain | [address] | | | | | | syndrome | [address] | | | | | | type 1 of | Rd | | | | | | left lower | [place], [place] | | | | | | extremity | [address] | | | | | | Procedures | Phone: | | | | | | PHYSICAL | [phone] | | | | | | THERAPY | Fax: | | | | | | REFERRAL | [phone] | | +--------+--------+ + + + + Encounter Details +--------+ + + + + | Date | Type | Department | Care Team | Description | +--------+ + + + + | 01/22/ | Telephone | [facility] Comprehensive | Alex Sanchez, | | | 2019 | | Pain Center at | ,PhD [address] [facility] | | | | | [facility] | [facility] | | | | | [address] | [place], [place] | | | | | [facility] | [address] | | | | | and Martina, | [phone] | | | | | | | | | | | Floor [place], [place] | | | | | | [address] | | | | | | [phone] | | | +--------+ + + + [...]
--- OUTSIDE RECORDS SUMMARY | ~2020-05-26 | XMS | Encounter Summary ---
Demographics + + + | Address | [address] | | | [place] [address] | + + + | Home Phone [...] Providers + +------+ + | Care Biofuels Engineering Manager Name | Role | Phone [...] | CRPS | Janak Martinez MD | [facility] [address] | | | | | (complex | [address] | Pavilion | | | | | regional | [address] | [address] | | | | | pain | Mailstop | [address], | | | | | syndrome), | [phone] | Basement | | | | | lower limb | [place], [place] | [place], [place] | | | | | Procedures | [address] | [address] | | | | | NM BONE &/[place] | Phone: | Phone: | | | | | JOINT | [phone] | [phone] | | | | | IMAGING 3 | Fax: | Fax: | | | | | PHASE | [phone] | [phone] | +--------+--------+ + + + + Encounter Details +--------+ + + + + | Date | Type | Department | Care Team | Description | +--------+ + + + + | 02/13/ | Hospital | Nuclear Medicine | | | | 2011 | Encounter | at [facility] [address] | | | | | | [address] | | | | | | [address], | | | | | | [place], | | | | | | [place] [address] | | | | | | [phone] | | | +--------+ + + + [...]
--- OUTSIDE RECORDS SUMMARY | ~2020-05-26 | XMS | Encounter Summary ---
Demographics + + + | Address | [address] | | | [place] [address] | + + + | Home Phone [...] Providers + +------+ + | Care Senior Sales Executive Name | Role | Phone | + +------+ + | Justo Vazquez MD | PCP | | + +------+ + Encounter Details +--------+ + + + + | Date | Type | Department | Care Team | Description | +--------+ + + + + | 01/31/ | Documentati | Vascular Access at | [place], | | | 2017 | on | [facility] [address] | Maru RN [address] | | | | | [address] | [address] | | | | | [facility] | [place], [place] | | | | | [place], [place] | [address] | | | | | [address] | | | | | | [phone] | | | +--------+ + + + [...]
--- OUTSIDE RECORDS SUMMARY | ~2020-05-26 | XMS | Encounter Summary ---
Demographics + + + | Address | [address] | | | [place] [address] | + + + | Home Phone [...] Team Providers + +------+ + | Care Curator Horticultural Museum Name | Role | Phone | + [...] + + | 09/15/ | Telephone | [facility] | Alex Sanchez, | Question | | 2018 | | Pain Center at | ,PhD [address] | | | | | [facility] | [address] | | | | | [address] | [place], [place] | | | | | [facility] | [address] | | | | | and Martina, | [phone] | | | | | Building | | | | | | Floor [place], [place] | | | | | | [address] | | | | | | [phone] | | | +--------+ + + + [...]
--- OUTSIDE RECORDS SUMMARY | ~2020-05-26 | XMS | Encounter Summary ---
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 Surgery check-in location: [facility] Day Stay - [place] [facility], 4th floor Surgery Check in Time: The [...] it is after office hours, call the [facility] sand slinger operator at [phone] and ask them to page him or h er. documented in this encounter Progress Notes Catie Smart NP - 11/27/2018 2:05 PM PST PREOPERATIVE CONSULT NOTE Author: Catie Smart NP Referring Physician: Alex Sanchez MD Primary Care Provider: Justo Vazquez MD Reason for Consult: Preoperative evaluation and risk assessment Proposed Procedure/Date: implant SCS; 12/05/2018 Proposed Procedure Location: [facility] HISTORY OF PRESENT ILLNESS: Tracie Farah [...] renal failure no electrolyte abnormalities no dialysis Urology/Auto Haulaway Driver: Interstitial cystitis LMP: irreg bleeding, ~11/14/2018, IUD [...] oral recon soln Take as directed by [facility]- 2 gallon bowel prep polyethylene glycol 17 [...] patient is a lso currently scheduled at [facility] [place] and is meeting inclusion criteria [...] to this patient's care. Catie Smart NP [facility] PBB PREOPERATIVE MEDICINE CLINIC AT [facility] 4TH FLOOR [address] [facility] [address] I advised the patient regarding [...]
--- OUTSIDE RECORDS SUMMARY | ~2020-05-26 | XMS | Encounter Summary ---
Demographics + + + | Address | [address] | | | [place] [address] | + + + | Home Phone | | + + + | Preferred Language | Unknown | + + + | Marital Status | Single | + + + | Presybeterian Affiliation | 1073 | + + + | Race | Unknown | + + + | Ethnic Group | Unknown | + + + Author + + + | Author | [facility] | | | and [place] | + + + | Organization | [facility] | | | and [...] [place] | | | | | [address] | | + + + + + | Bryant Farah | ECON | Unknown | | + + + + + Care Team Providers + +------+ + | Care Grazing Examiner Name | Role | Phone | + +------+ + PCP | Unavailable | + +------+ + Encounter Details +--------+ + + + + | Date | Type | Department | Care Team | Description | +--------+ + + + + | 03/20/ | Hospital | [facility] | Ulices Hayes, | 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 T his also failed to provide [...] stable condition. She will follow-up with her [facility] physician for continued medical management. She [...] 03/22/131929 Date of Service: 03/22/131920 Status: Signed Jockey Room Custodian: Ava Sue RN (Registered Nurse) Patient tolerated [...] 03/22/131854 Date of Service: 03/22/131854 Status: Signed Jockey Room Custodian: Ava Sue RN (Registered Nurse) Discharge teaching [...] 0657 Date of Service: 03/22/13651 Status: Signed Jockey Room Custodian: Ulices Hayes MD (Physician) [facility] Service: Interventional Pain Management Pre-Operative [...] Author: JUSTIN Ospina Service: (none) Author Type: Dental Laboratory Manager Filed: 03/21/131035 Date of Service: 03/21/131031 Status: Addendum Jockey Room Custodian: JUSTIN Ospina (Dental Laboratory Manager) Related Notes: Original Note by JUSTIN Ospina (Dental Laboratory Manager) filed at 03/21/13 1 036 Met w/22yo F Pt who lives w/parents in [place], [place]. Pt lives in two story house [...] home. Pt has info for financial co [employer]. lices Brock MD - 03/21/2013 7:27 AM PDT Progress Notes by Ulices Hayes MD at 03/21/13726 Author: Ulices Hayes MD Service: Interventional Pain Management Author Type: Physic deya Filed: 03/21/13 0735 Date of Service: 03/21/13726 Status: Signed Jockey Room Custodian: Ulices Hayes MD (Physician) [facility] Service: Interventional Pain Management Pre-Operative [...] 03/21/1346 Date of Service: 03/21/13639 Status: Signed Jockey Room Custodian: Darlin Orlando RN (Registered Nurse) Pt had [...] Date of Service: 03/19/13 1034 Status: Addendum Jockey Room Custodian: Ulices Hayes MD (Physician) Related Notes: Original Note by Nataliia Lindsey RN (Registered Nurse) filed at 03/19/13 1 049 [facility] Service: Interventional Pain Management History [...] [facility] at pain clinics in [place] as well and [place], [place]. She has had sympathetic nerv e [...] oriented x4. Head: Normocephalic and atraumatic. Eyes: Erskine conjunctiva and sclera clear Mouth: No deformity [...] since. She has undergone extensive therapy at [facility] at pain clinics in [place] as well and [place], [place]. She has had sympathetic nerve blocks [...] 03/22/13838 Date of Service: 03/22/13838 Status: Signed Jockey Room Custodian: Ava Sue RN (Registered Nurse) Problem: Pain [...] Date of Service: 03/22/13 0215 Status: Signed Jockey Room Custodian: Marleen Sheppard RN (Registered Nurse) Problem: Pain [...] 1058 Date of Service: 03/21/131057 Status: Signed Jockey Room Custodian: Ava Sue RN (Registered Nurse) Problem: Pain [...] 03/20/132153 Date of Service: 03/20/131899 Status: Signed Jockey Room Custodian: Justo Romeo RN (Registered Nurse) Problem: Pain [...] 1132 Date of Service: 03/20/131123 Status: Signed Jockey Room Custodian: Ulices Hayes MD (Physician) [facility] Service: Interventional Pain Management Operative Note Pre-operative Diagnosis: #1. Complex regional pain syndrome. #2. Chronic pain syndrome Post-operative Diagnosis: Same Procedure(s): Placement of intrathecal catheter for trial of intrathecal pain medications for pain control. Surgeon: ULICES HAYES MD Appellate Court Judge(s): none Anesthesia: Moderate sedation and local anesthesia. [...]
--- OUTSIDE RECORDS SUMMARY | ~2020-05-26 | XMS | Encounter Summary ---
Demographics + + + | Address | [address] | | | [place] [address] | + + + | Home Phone [...] Team Providers + +------+ + | Care Smalltalk Developer Name | Role | Phone | [...] + + | 10/07/ | Telephone | [facility] Comprehensive | Yosef Kenney MD | Wound infection | | 2018 | | Pain Center at | [address] | (Concern for DRG | | | | [facility] | [address] [place], | trial wound | | | | [address] | [place] [address] | infection) | | | | [place] [facility] | [phone] | | | | | and Healing, | | | | | | | | | | | | [place], [place] | | | | | | [address] | | | | | | [phone] | | | +--------+ + + + [...]
--- OUTSIDE RECORDS SUMMARY | ~2020-05-26 | XMS | Encounter Summary ---
Demographics + + + | Address | [address] | | | [place] [address] | + + + | Home Phone [...] Providers + +------+ + | Care Javascript Web Developer Name | Role | Phone | + +------+ + | Justo Vazquez MD | PCP | | + +------+ + Encounter Details +--------+ + + + + | Date | Type | Department | Care Team | Description | +--------+ + + + + | 07/30/ | Telephone | [facility] | Alex Sanchez, | | | 2019 | | Pain Center at | ,PhD [address] | | | | | [facility] | [address] | | | | | [address] | [place], [place] | | | | | [place] for [facility] | [address] | | | | | and Healing, | [phone] | | | | | | | | | | | Floor [place], [place] | | | | | | [address] | | | | | | [phone] | | | +--------+ + + + [...]
--- OUTSIDE RECORDS SUMMARY | ~2020-05-26 | XMS | Encounter Summary ---
Demographics + + + | Address | [address] | | | [place] [address] | + + + | Home Phone [...] Providers + +------+ + | Care Gun Fitter Name | Role | Phone | [...] [address] | | | | | [facility] | [facility], | | | | | [address] | [place] [address] | | | | | [facility] | [phone] | | | | | and Healing, | | | | | | [facility] | | | | | | [place], [place] | | | | | | [address] | | | | | | [phone] | | | +--------+ + + + [...]
--- OUTSIDE RECORDS SUMMARY | ~2020-05-26 | XMS | Encounter Summary ---
Demographics + + + | Address | [address] | | | [place] [address] | + + + | Home Phone [...] Providers + +------+ + | Care Technology Engineer Name | Role | Phone | [...] | | | | | [address], | | | | | | [place] [address] | | | +--------+ + + + [...]
--- OUTSIDE RECORDS SUMMARY | ~2020-05-26 | XMS | Encounter Summary ---
Demographics + + + | Address | [address] | | | [place] [address] | + + + | Home Phone [...] Team Providers + +------+ + | Care Animal Groomer Name | Role | Phone | + [...] | Diagnoses | Beulah | Edu Pt Veterinarian Epidemiologist | | | | Therapy | CRPS | Janak Martinez MD | [address] | | | | | (complex | [address] | | | | | regional | [address] | Mailcode: | | | | | pain | Mailstop | [facility] | | | | | syndrome), | [id number] | for Health | | | | | lower limb | [place], [place] | and Healing, | | | | | Gait | [address] | Building 1 | | | | | disturbance | Phone: | [place], [place] | | | | | Muscle pain | [phone] | [address] | | | | | Procedures | Fax: | Phone: | | | | | PHYSICAL | [phone] | [phone] | | | | | THERAPY | [...] regional pain | | | | [facility] | [place] [address] | syndrome), lower | | | | [address] | [phone] | limb (Primary Dx) | | | | [facility] | | | | | | and Healing, | | | | | | Building 1, 1st | | | | | | Floor [place], [place] | | | | | | [address] | | | | | | [phone] | | | +--------+---------+ + + + [...] might be different f rom the original. [id number] BRODY FARAH Date of : 1990 Start of care: 02/14/2012 Date of onset: 02/14/2012 Referring/Attending Practitioner: Janak Riojas MD . Primary/Referral Diagnosis/ICD-9: 355.71B CRPS (complex regional pain syndrome), lower limb Insurance: Payor: [facility] Plan: BCBS OUT OF STATE Product Type: PP O Service period from: 02/14/2012 to: 08/12/2012 Number visits used/authorized: 05/25 [facility] PHYSICAL THERAPY PROGRESS NOTE SUBJECTIVE: [...] any change in their status. [facility] Outpatient Rehabilitation Services Mailcode: Ch3p 3303 [facility], 1st Floor [facility] [address] documented in this encounter Plan of Treatment Not on filedocumented as of this encounter Procedures + +--------+ + + + | Procedure Name | Priori | Date/Time | Associated Diagnosis | Comments | | | ty | | | | + +--------+ + + + | [place] MANUAL THER | Routin | 06/09/2012 | CRPS (complex | | | TECH,1+REGIONS,EA 15 | e | 2:46 PM | regional pain | | | MIN | | PDT | syndrome), lower | | | | | | limb | | + +--------+ + + + | [place] THERAPEUTIC | Routin | 06/09/2012 | CRPS [...]
--- OUTSIDE RECORDS SUMMARY | ~2020-05-26 | XMS | Encounter Summary ---
Demographics + + + | Address | [address] | | | [place] [address] | + + + | Home Phone [...] Providers + +------+ + | Care Structural Analyst Name | Role | Phone | [...] Rd | | | | | | [place], [place] | | | | | | [address] | | | +--------+ + + + [...]
--- OUTSIDE RECORDS SUMMARY | ~2020-05-26 | XMS | Encounter Summary ---
Demographics + + + | Address | [address] | | | [place] [address] | + + + | Home Phone [...] Providers + +------+ + | Care Veterinary Hospital Attendant Name | Role | Phone | [...] 2016 | | Center at [facility] [address] | [address] | | | | | [address] [place] | [address] | | | | | [facility] and | [place], [place] | | | | | [facility], [facility] 2 | [address] | | | | | [place], [place] | [phone] | | | | | [address] | | | | | | [phone] | | | +--------+ + + + [...]
--- OUTSIDE RECORDS SUMMARY | ~2020-05-26 | XMS | Encounter Summary ---
Demographics + + + | Address | [address] | | | [place] [address] | + + + | Home Phone [...] Team Providers + +------+ + | Care Inventory Coordinator Name | Role | Phone | [...] 2017 | | Pain Center at | PHYSICAL THERAPY RESIDENT [address] | | | | | [facility] | [place], [place] | | | | | [address] | [address] | | | | | [facility] | [phone] | | | | | and Healing, | | | | | | Building | | | | | | [facility] [place] | | | | | | [address] | | | | | | [phone] | | | +--------+ + + + [...]
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
--- OUTSIDE RECORDS SUMMARY | ~2020-05-26 | XMS | Encounter Summary ---
Demographics + + + | Address | [address] | | | [place] [address] | + + + | Home Phone [...] Providers + +------+ + | Care Senior Environmental Scientist Name | Role | Phone | + +------+ + | Justo Vazquez MD | PCP | | + +------+ + Encounter Details +--------+ + + + + | Date | Type | Department | Care Team | Description | +--------+ + + + + | 03/12/ | Telephone | [facility] | Alex Sanchez, | | | 2019 | | Pain Center at | ,PhD [address] | | | | | [facility] | [address] | | | | | [address] | [place], [place] | | | | | [place] for [facility] | [address] | | | | | and Healing, | [phone] | | | | | | | | | | | Floor [place], [place] | | | | | | [address] | | | | | | [phone] | | | +--------+ + + + [...]
--- OUTSIDE RECORDS SUMMARY | ~2020-05-26 | XMS | Encounter Summary ---
Demographics + + + | Address | [address] | | | [place] [address] | + + + | Home Phone [...] Team Providers + +------+ + | Care Fur Blower Name | Role | Phone | [...] | Diagnoses | Beulah | Edu Pt Home Restoration Service Supervisor | | | | Therapy | CRPS | Janak Matrinez MD | [address] | | | | | (complex | [address] | | | | | regional | [address] | Mailcode: | | | | | pain | Mailstop | [facility] | | | | | syndrome), | [id number] | for Health | | | | | lower limb | [place], [place] | and Healing, | | | | | Gait | [address] | Building 1 | | | | | disturbance | Phone: | [place], [place] | | | | | Muscle pain | [phone] | [address] | | | | | Procedures | Fax: | Phone: | | | | | PHYSICAL | [phone] | [phone] | | | | | THERAPY | [...] regional pain | | | | [facility] | [place] [address] | syndrome), lower | | | | [address] | [phone] | limb (Primary Dx) | | | | [facility] | | | | | | and Healing, | Specialist, Edu | | | | | Building 1, 1st | Exercise [address] | | | | | Floor [place], [place] | [address] [place], | | | | | [address] | [place] [address] | | | | | [phone] | | | +--------+---------+ + + + [...] might be different f rom the original. [id number] BRODY FARAH Date of : 1990 Start of care: 02/14/2012 Date of onset: 02/14/2012 Referring/Attending Practitioner: Janak Riojas MD . Primary/Referral Diagnosis/ICD-9: 355.71B CRPS (complex regional pain syndrome), lower limb Insurance: Payor: [facility] Plan: BCBS OUT OF STATE Product Type: PP O Service period from: 02/14/2012 to: 08/12/2012 Number visits used/authorized: 02/23 [facility] PHYSICAL THERAPY PROGRESS NOTE SUBJECTIVE: Age: [...] in their status. Guillermo Sanon MSPT [facility] Outpatient Rehabilitation Services Mailcode: Ch3p 3301 [facility], [address] [place] [address] documented in this encounter Plan of Treatment Not on filedocumented as of this encounter Procedures + +--------+ + + + | Procedure Name | Priori | Date/Time | Associated Diagnosis | Comments | | | ty | | | | + +--------+ + + + | PA THERAPEUTIC | Routin | 05/24/2012 | CRPS (complex | | | EXERCISES | e | 6:23 PM | regional pain | | | | | PDT | syndrome), lower | | | | | | limb | | + +--------+ + + + | PA THERAPEUTIC | Routin | 05/24/2012 | CRPS [...]
--- OUTSIDE RECORDS SUMMARY | ~2020-05-26 | XMS | Encounter Summary ---
Demographics + + + | Address | [address] | | | [place] [address] | + + + | Home Phone [...] Providers + +------+ + | Care Patrol Agent Name | Role | Phone | [...] + | 03// | Telephone | [facility] | Alex Sanchez, | Medication (clarify | | 2018 | | Pain Center at | ,PhD [address] | sig on Ketamine) | | | | [facility] | [facility] | | | | | [address] | [place], [place] | | | | | [facility] | [address] | | | | | and Healing, | [phone] | | | | | Building | | | | | | Floor [place], [place] | | | | | | [address] | | | | | | [phone] | | | +--------+ + + + [...]
--- OUTSIDE RECORDS SUMMARY | ~2020-05-26 | XMS | Encounter Summary ---
Demographics + + + | Address | [address] | | | [place] [address] | + + + | Home Phone [...] + +------+ + | Care Electro Mechanical Assembler Name | Role | Phone | [...] (plan of care) | | | | [facility] | [address] | | | | | [address] | [place], [place] | | | | | [facility] | [address] | | | | | and Healing, | [phone] | | | | | | | | | | | Floor [place], [place] | | | | | | [address] | | | | | | [phone] | | | +--------+ + + + [...]
--- OUTSIDE RECORDS SUMMARY | ~2020-05-26 | XMS | Encounter Summary ---
Demographics + + + | Address | [address] | | | [place] [address] | + + + | Home Phone [...] Providers + +------+ + | Care Manager Telecom Name | Role | Phone | + [...] | Diagnoses | Beulah | Edu Pt Humidifier Operator | | | | Therapy | CRPS | Janak Martinez MD | [address] | | | | | (complex | [address] | | | | | regional | [address] | Mailcode: | | | | | pain | Mailstop | [facility] | | | | | syndrome), | [id number] | for Health | | | | | lower limb | [place], [place] | and Healing, | | | | | Gait | [address] | Building 1 | | | | | disturbance | Phone: | [place], [place] | | | | | Muscle pain | [phone] | [address] | | | | | Procedures | Fax: | Phone: | | | | | PHYSICAL | [phone] | [phone] | | | | | THERAPY | [...] | | | | [place] | [place] [address] | syndrome), lower | | | | [address] | [phone] | limb (Primary Dx) | | | | [facility] | | | | | | and Healing, | | | | | | Building 1, | | | | | | Floor [place], [place] | | | | | | [address] | | | | | | [phone] | | | +--------+---------+ + + + [...] might be different f rom the original. [id number] BRODY FARAH Date of : 1990 Start of care: 02/14/2012 Date of onset: 02/14/2012 Referring/Attending Practitioner: Janak Riojas MD . Primary/Referral Diagnosis/ICD-9: 355.71B CRPS (complex regional pain syndrome), lower limb Insurance: Payor: [employer] [facility] Plan: BCBS OUT OF STATE Product Type: PP O Service period from: 02/14/2012 to: 08/12/2012 Number visits used/authorized: 12/[address] [facility] PHYSICAL THERAPY PROGRESS NOTE SUBJECTIVE: Age: 21 y.o. Sex: female Chief complaint: No chief complaint on file. 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 She is doing much better ov [facility], possibly because she finished school and so has less stress. She stopped using crutch es in early April (18 days ago) which is less stressful. Now she is working at [employer] 2-3 hours per week, and spends a [...] sometimes pain meds. Social History: lives in [place], 22 years old, not working currently, [...] or concerns about therapy: she lives in [place]. She is r equesting family members [...] their status. Guillermo Sanon MSPBren [facility] Outpatient Rehabilitation Services Mailcode: Ch3p 3303 [facility], 1st Floor [facility] [address] [...]
--- OUTSIDE RECORDS SUMMARY | ~2020-05-26 | XMS | Encounter Summary ---
Demographics + + + | Address | [address] | | | [place] [address] | + + + | Home Phone [...] Providers + +------+ + | Care Chief Dispatcher Name | Role | Phone | [...] 2017 | | Center at [facility] [address] | | pain | | | | [address] [facility] | | | | | | for Health and | | | | | | Healing, Building 2 | | | | | | [place], [place] | | | | | | [address] | | | | | | [phone] | | | +--------+ + + + [...]
--- OUTSIDE RECORDS SUMMARY | ~2020-05-26 | XMS | Encounter Summary ---
Demographics + + + | Address | [address] | | | [place] [address] | + + + | Home Phone [...] Providers + +------+ + | Care Freight Agent Name | Role | Phone | [...] | | | | | Ave Mailcode: [facility] | [place], [place] | | | | | [facility] | [address] | | | | | Health and Healing, | [phone] | | | | | [place] [address] | | | | | | [place], [place] | | | | | | [address] | | | | | | [phone] | | | +--------+ + + + [...] Discharge Instructions Instructions Darlin Doyle RN - 12/14/2016[place] Care Instructions after Colonoscopy You may resume [...] on weekends and holidays call the Hospital Gear Milling Machine Set Up Operator toll free 1- [phone] Ext. [phone] or and have the GI doctor picket [...] Farah is a 26 y.o. female MR# [id number] presents today for colonoscopy NPO since midnight [...]
--- OUTSIDE RECORDS SUMMARY | ~2020-05-26 | XMS | Encounter Summary ---
Demographics + + + | Address | [address] | | | [place] [address] | + + + | Home Phone [...] Providers + +------+ + | Care Financial Aids Officer Name | Role | Phone | [...] | | 2016 | | Center at [facility] [address] | MD Melissa | | | | | [address] [place] | | | | | | for Health and | | | | | | Healing, Building 2 | | | | | | [place], [place] | | | | | | [address] | | | | | | [phone] | | | +--------+ + + + [...]
--- OUTSIDE RECORDS SUMMARY | ~2020-05-26 | XMS | Encounter Summary ---
Demographics + + + | Address | [address] | | | [place] [address] | + + + | Home Phone [...] Providers + +------+ + | Care Magnetic Prospecting Supervisor Name | Role | Phone | [...] | | 2017 | | Center at [facility] [address] | | | | | | [facility] | | | | | | for Health and | | | | | | Healing, Building 2 | | | | | | [place], [place] | | | | | | [address] | | | | | | [phone] | | | +--------+--------+ + + + [...]
--- OUTSIDE RECORDS SUMMARY | ~2020-05-26 | XMS | Encounter Summary ---
Demographics + + + | Address | [address] | | | [place] [address] | + + + | Home Phone [...] Providers + +------+ + | Care Tire Service Technician Name | Role | Phone | + +------+ + | Justo Vazquez MD | PCP | | + +------+ + Encounter Details +--------+ + + + + | Date | Type | Department | Care Team | Description | +--------+ + + + + | 03/18/ | Telephone | [facility] | Kenny Gaspar MD | | | 2017 | | [place] [address] [address] | | | | | | [address] [facility] | | | | | | for Health and | | | | | | [facility], Building 2 | | | | | | [place], [place] | | | | | | [address] | | | | | | [phone] | | | +--------+ + + + [...]
--- OUTSIDE RECORDS SUMMARY | ~2020-05-26 | XMS | Encounter Summary ---
Demographics + + + | Address | [address] | | | [place] [address] | + + + | Home Phone [...] Team Providers + +------+ + | Care Disaster Director Name | Role | Phone | [...] Oliveira | | 2011 | IP | [address] | | House - Approved | | | | [place], | | | | | | [place] [address] | | | +--------+ + + + [...]
--- OUTSIDE RECORDS SUMMARY | ~2020-05-26 | XMS | Encounter Summary ---
Demographics + + + | Address | [address] | | | [place] [address] | + + + | Home Phone [...] Providers + +------+ + | Care Net Sorter Name | Role | Phone | + +------+ + | Justo Vazquez MD | PCP | | + +------+ + Encounter Details +--------+ + + + + | Date | Type | Department | Care Team | Description | +--------+ + + + + | 01/11/ | Procedure | Diagnostic Imaging | | | | 2016 | Pass | Services at [facility] | | | | | | [address] | | | | | | [place] | | | | | | [facility] | | | | | | [place], [place] | | | | | | [address] | | | | | | [phone] | | | +--------+ + + + [...]
--- OUTSIDE RECORDS SUMMARY | ~2020-05-26 | XMS | Encounter Summary ---
Demographics + + + | Address | [address] | | | [place] [address] | + + + | Home Phone [...] Team Providers + +------+ + | Care Foundation Drill Operator Helper Name | Role | Phone | + +------+ + | Justo Vazquez MD | PCP | | + +------+ + Encounter Details +--------+ + + + + | Date | Type | Department | Care Team | Description | +--------+ + + + + | 12/05/ | Pharmacy | [facility] | | | | 2019 | Visit | & [facility] Pharmacy | | | | | | [address] | | | | | | Mailcode: [place] | | | | | | [facility] and | | | | | | Healing, Building 1 | | | | | | [place], [place] | | | | | | [address] | | | | | | [phone] | | | +--------+ + + + [...]
--- OUTSIDE RECORDS SUMMARY | ~2020-05-26 | XMS | Encounter Summary ---
Demographics + + + | Address | [address] | | | [place] [address] | + + + | Home Phone [...] Team Providers + +------+ + | Care Basketball Coach Name | Role | Phone | + +------+ + | Justo Vazquez MD | PCP | | + +------+ + Encounter Details +--------+ + + + + | Date | Type | Department | Care Team | Description | +--------+ + + + + | 12/12/ | Telephone | [facility] | Alex Sanchez, | | | 2019 | | Pain Center at | ,PhD [address] | | | | | [facility] | [address] | | | | | [address] | [place], [place] | | | | | [place] for [facility] | [address] | | | | | and Healing, | [phone] | | | | | | | | | | | Floor [place], [place] | | | | | | [address] | | | | | | [phone] | | | +--------+ + + + [...]
--- OUTSIDE RECORDS SUMMARY | ~2020-05-26 | XMS | Encounter Summary ---
Demographics + + + | Address | [address] | | | [place] [address] | + + + | Home Phone [...] Providers + +------+ + | Care Home Stager Name | Role | Phone | + +------+ + | Justo Vazquez MD | PCP | | + +------+ + Encounter Details +--------+ + + + + | Date | Type | Department | Care Team | Description | +--------+ + + + + | 03/11/ | Telephone | [facility] | Zeeshan Mahoney MD | | | 2019 | | Pain Center at | [address] | | | | | [facility] | [facility], | | | | | [address] | [place] [address] | | | | | [place] for [facility] | [phone] | | | | | and Healing, | | | | | | | | | | | | [place], [place] | | | | | | [address] | | | | | | [phone] | | | +--------+ + + + [...]
--- OUTSIDE RECORDS SUMMARY | ~2020-05-26 | XMS | Encounter Summary ---
Demographics + + + | Address | [address] | | | [place] [address] | + + + | Home Phone [...] Rd | | | | | | [place], [place] | | | | | | [address] | | | +--------+ + + + [...]
--- OUTSIDE RECORDS SUMMARY | ~2020-05-26 | XMS | Encounter Summary ---
Demographics + + + | Address | [address] | | | [place] [address] | + + + | Home Phone [...] Team Providers + +------+ + | Care Volunteer Services Manager Name | Role | Phone | + +------+ + | Justo Vazquez MD | PCP | | + +------+ + Encounter Details +--------+ + + + + | Date | Type | Department | Care Team | Description | +--------+ + + + + | 04/23/ | Anesthesia | Pain Center at [facility] | Aleta Rebollar MD [address] | | | 2019 | Event | [address] | [address] | | | | | [place] for Health | [place], [place] | | | | | and Healing, | [address] | | | | | | [phone] | | | | | Floor [place], [place] | | | | | | [address] | | | | | | [phone] | | | +--------+ + + + [...]
--- OUTSIDE RECORDS SUMMARY | ~2020-05-26 | XMS | Encounter Summary ---
Demographics + + + | Address | [address] | | | [place] [address] | + + + | Home Phone [...] Team Providers + +------+ + | Care Sea Kayaking Guide Name | Role | Phone | [...] Rd | | | | | | [place], [place] | | | | | | [address] | | | +--------+ + + + [...]
--- OUTSIDE RECORDS SUMMARY | ~2020-05-26 | XMS | Encounter Summary ---
Demographics + + + | Address | [address] | | | [place] [address] | + + + | Home Phone [...] Team Providers + +------+ + | Care Trauma Therapist Name | Role | Phone | [...] | Request (ketamine- | | | | [facility] | [address] | mail script to | | | | [address] | [place], [place] | patient) | | | | [facility] | [address] | | | | | and Healing, | [phone] | | | | | | | | | | | Floor [place], [place] | | | | | | [address] | | | | | | [phone] | | | +--------+ + + + [...]
--- OUTSIDE RECORDS SUMMARY | ~2020-05-26 | XMS | Encounter Summary ---
Demographics + + + | Address | [address] | | | [place] [address] | + + + | Home Phone [...] + +------+ + | Care Professor Of Environmental Studies Name | Role | Phone | + +------+ + | Justo Vazquez MD | PCP | | + +------+ + Encounter Details +--------+ + + + + | Date | Type | Department | Care Team | Description | +--------+ + + + + | 12/05/ | Procedure | [facility] | | | | 2019 | Pass | [place] [facility] | | | | | | and Healing Surgery | | | | | | Center Admitting | | | | | | Desk Located on the | | | | | | 4th floor [address] | | | | | | [address] [place], | | | | | | [place] [address] | | | +--------+ + + + [...]
--- OUTSIDE RECORDS SUMMARY | ~2020-05-26 | XMS | Encounter Summary ---
Demographics + + + | Address | [address] | | | [place] [address] | + + + | Home Phone [...] Team Providers + +------+ + | Care Ferryboat Operator Helper Name | Role | Phone [...] 08/11/ | Documentati | KEVIN YANEZ at [facility] | Lab, Gi Procedure | Medical Records | | 2015 | on | [address] | | Review | | | | [address] [facility] for | | | | | | Health and Healing, | | | | | | Building [address] | | | | | | | | | | | | [address] | | | | | | [phone] | | | +--------+ + + + [...]
--- OUTSIDE RECORDS SUMMARY | ~2020-05-26 | XMS | Encounter Summary ---
Demographics + + + | Address | [address] | | | [place] [address] | + + + | Home Phone [...] Providers + +------+ + | Care Online Communications Manager Name | Role | Phone | [...] | | | regional | [place] | [address] | | | | | pain | FAMILY | Mailstop | | | | | syndrome), | MEDICINE P | [id number] | | | | | lower limb | [address] | [place], [place] | | | | | Pain in | [place], | [address] | | | | | joint, lower | [place] [address] | Phone: | | | | | leg | Phone: | [phone] | | | | | Procedures | [phone] | Fax: | | | | | REQUEST TO | Fax: | [phone] | | | | | SURGERY | [phone] | | | | | | RESTAURANT ASSOCIATE | | | +--------+--------+ + + + [...] | | | sympathetic | [place] | [address]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 | FAMILY | Mailstop | | | | | of lower | MEDICINE P | [address] | | | | | limb | [address] | [place], [place] | | | | | | [place], | [address] | | | | | | [place] [address] | Phone: | | | | | | Phone: | [phone] | | | | | | [phone] | Fax: | | | | | | Fax: | [phone] | | | | | | [phone] | | +--------+--------+ + + + + Encounter Details +--------+---------+ + + + | Date | Type | Department | Care Team | Description | +--------+---------+ + + + | 06/06/ | Office | [facility] | Dale Cantu, | CRPS (complex | | 2011 | Visit | Pain Center at | MD [address] | regional pain | | | | [facility] | [facility] [id number] | syndrome), lower | | | | [address] | [place], [place] | limb; Pain in joint, | | | | Center for Health | [address] | lower leg | | | | and Healing, | [phone] | | | | | | | | | | | Floor [place], [place] | | | | | | [address] | | | | | | [phone] | | | +--------+---------+ + + + [...] Dale Cantu MD - 06/06/2012 11:49 AM [facility] Pre-Procedure Instructions: The procedure you discussed with your doctor is called: SCS TRIAL LUMBAR [facility]. Please make sure this is scheduled with the Tax Revenue Officer. Please bring a package delivery driver with you. We may give you medications that make you drowsy or otherw ise unsafe to drive. If you do not have a package delivery driver, we will not be able [...] PLEASE CONTACT THE COMPREHENSIVE PAIN CENTER AT [phone] ([phone]) FOR QUESTIONS OR IF YOU NEED TO CANCEL YOUR APPOINTMENT. [facility] documented in this encounter [...] not signed. Given information. DALE CANTU MD Ceramic Design Engineer, [facility] Consumer Loan Officer, Pain Medicine Professor, Anesthesiology & Perioperative Medicine ollHomer manriquez MD - 06/06/2012 11:17 AM PDT [facility] Return Visit with Dr. [...] and a pain drawing which I reviewed. PRIVATE CHEF Brief Pain Inventory: (ten= worst possible pain [...] The Review of Systems obtained by the FOOD DEMONSTRATOR was reviewed. Additional Review of Systems: Bones, [...] female who is following up with Dr. Dael Cantu at the [facility] today for left foot CRPS which [...] therapy Homer Elaine MD Pain Medicine Fellow [facility] [place] Evelia Parsons - 11:07 AM PDTCMA History: [...]
--- OUTSIDE RECORDS SUMMARY | ~2020-05-26 | XMS | Encounter Summary ---
Demographics + + + | Address | [address] | | | [place] [address] | + + + | Home Phone [...] Team Providers + +------+ + | Care Antenna Engineer Name | Role | Phone | [...] | Diagnoses | Beulah | Edu Pt Virtualization Architect | | | | Therapy | CRPS | Janak Martinez MD | [facility] [address] | | | | | (complex | [address] | | | | | regional | [address] | Mailcode: | | | | | pain | Mailstop | [facility] | | | | | syndrome), | [id number] | for Health | | | | | lower limb | [place], [place] | and Healing, | | | | | Gait | [address] | [address] | | | | | disturbance | Phone: | [place], [place] | | | | | Muscle pain | [phone] | [address] | | | | | Procedures | Fax: | Phone: | | | | | PHYSICAL | [phone] | [phone] | | | | | THERAPY | [...] | | | | [address] | [place] [address] | syndrome), lower | | | | [address] | [phone] | limb (Primary Dx) | | | | [facility] | | | | | | and Healing, | | | | | | Building 1, | | | | | | Floor [place], [place] | | | | | | [address] | | | | | | [phone] | | | +--------+---------+ + + + [...] might be different f rom the original. [id number] BRODY FARAH Date of : 1990 Start of care: 02/14/2012 Date of onset: 02/14/2012 Referring/Attending Practitioner: Janak Riojas MD . Primary/Referral Diagnosis/ICD-9: 355.71B CRPS (complex regional pain syndrome), lower limb Insurance: [facility] [email or web address] [facility] Plan: BCBS OUT OF STATE Product Type: PP O Service period from: 02/14/2012 to: 08/12/2012 Number visits used/authorized: 03/25 [facility] PHYSICAL THERAPY PROGRESS NOTE [...] any change in their status. Guillermo Sanon [facility] Outpatient Rehabilitation Services Mailcode: Ch3p [address] [facility] [place], [address] [place] [address] documented in this encounter Plan of Treatment Not on filedocumented as of this encounter Procedures + +--------+ + + + | Procedure Name | Priori | Date/Time | Associated Diagnosis | Comments | | | ty | | | | + +--------+ + + + | MT MANUAL THER | Routin | 06/05/2012 | CRPS (complex | | | TECH,1+REGIONS,EA 15 | e | 5:15 PM | regional pain | | | MIN | | PDT | syndrome), lower | | | | | | limb | | + +--------+ + + + | MT THERAPEUTIC | Routin | 06/05/2012 | CRPS [...]
--- OUTSIDE RECORDS SUMMARY | ~2020-05-26 | XMS | Encounter Summary ---
Demographics + + + | Address | [address] | | | [place] [address] | + + + | Home Phone [...] Team Providers + +------+ + | Care Precise Winder Name | Role | Phone | + +------+ + | Justo Vazquez MD | PCP | | + +------+ + Encounter Details +--------+ + + + + | Date | Type | Department | Care Team | Description | +--------+ + + + + | 05/18/ | Telephone | [facility] | Alex Sanchez, | | | 2019 | | Pain Center at | ,PhD [address] | | | | | [facility] | [address] | | | | | [address] | [place], [place] | | | | | [place] for [facility] | [address] | | | | | and Healing, | [phone] | | | | | | | | | | | Floor [place], [place] | | | | | | [address] | | | | | | [phone] | | | +--------+ + + + [...]
--- OUTSIDE RECORDS SUMMARY | ~2020-05-26 | XMS | Encounter Summary ---
Demographics + + + | Address | [address] | | | [place] [address] | + + + | Home Phone [...] Team Providers + +------+ + | Care Works Manager Name | Role | Phone | [...] [address] | | | | | | [place], [place] | | | | | | [address] | | | +--------+ + + + [...]
--- OUTSIDE RECORDS SUMMARY | ~2020-05-26 | XMS | Encounter Summary ---
Demographics + + + | Address | [address] | | | [place] [address] | + + + | Home Phone [...] Team Providers + +------+ + | Care Strapper Name | Role | Phone | + [...]
--- OUTSIDE RECORDS SUMMARY | ~2020-05-26 | XMS | Encounter Summary ---
Demographics + + + | Address | [address] | | | [place] [address] | + + + | Home Phone [...] Team Providers + +------+ + | Care Batch Or Continuous Still Operator Name | Role | Phone | [...] + + | 08/03/ | Refill | [facility] | Alex Sanchez, | Refill Request | | 2018 | | Pain Center at | ,PhD [address] [facility] | (ketamine) | | | | [facility] | [facility] | | | | | [address] | [place], [place] | | | | | [facility] | [address] | | | | | and [place], | [phone] | | | | | [facility] | | | | | | Floor [place], [place] | | | | | | [address] | | | | | | [phone] | | | +--------+--------+ + + + [...]
--- OUTSIDE RECORDS SUMMARY | ~2020-05-26 | XMS | Encounter Summary ---
Demographics + + + | Address | [address] | | | [place] [address] | + + + | Home Phone [...] Providers + +------+ + | Care Drill Press Set Up Operator Name | [...] | | | | | extremity | [address] | [address] | | | | | Muscle pain | Phone: | Phone: | | | | | Procedures | [phone] | [phone] | | | | | REQUEST TO | Fax: | Fax: | | | | | SURGERY | [phone] | [phone] | | | | | ACCOUNTS PAYABLE BOOKKEEPER | | | | | | | [...] | | | Center for Health | [facility] | | | | | and Healing, | [place], [place] | | | | | [facility] | [address] | | | | | [place], [place] | [phone] | | | | | [address] | | | | | | [phone] | | | +--------+ + + + [...] note mi nayelit be [facility] Patient Instructions - Post Interventional Procedure Date: 12/27/2017 Name: Tracie Farah Date of : 1990 Procedure Performed: trigger point injection and popliteal/sciatic block. Procedure Provider: Alex Sanchez MD,PhD If you have any problems you believe are associated with your procedure tonight, Please call the Hospital Brush Filler Hand, and ask for the Pain Management Consu [...] paper. Please fax the pain diary to [phone] or attach a scanned image of it to a [employer] message to your doct or.. The area [...] to the larry ent. David Linares MD [facility] Center documented in this encounter Progress Notes Alex Sanchez MD,PhD - 12/27/2017 3:00 PM PSTI was present for the entire procedure ( popliteal nerve block and abdominal scar neuroma injection) and all bocangera elements of this vis it. I reviewed the documentation of the other WATER TREATMENT PLANT REPAIRER providers and concur with Dr. Linares's findings. I edited his note. Alex Sanchez MD,PhD Convenience Store Manager Anesthesiology and Pain Management [facility] David Pennington MD - 12/27/2017 3:00 PM PSTPROVIDER OPERATIVE NOTE Date: December 27, 2017 Location: [facility] Procedure Room Tracie Farah [id number] :1990, presents to clinic for: PROCEDURE: Popliteal/sciatic [...] scar neuroma ATTENDING PHYSICIAN: Alex Sanchez MD,PhD EQUIP MAINT ENG: Fellow David Linares MD ANESTHESIA: sedation Isadora [...] sedation. Ms. Farah was escorted to the [facility] Procedure R oom, where she was [...] procedure. Images were saved, and sent to [employer]. Ms. Farah was transported to the [facility] Pain Center post-procedure recovery area. She [...] by physician. Concentration is 150mg/mL. Compounded by [facility] ) LEVONORGESTREL 20 MCG/24 HR (5 [...] directed by [facility] Dig[facility]ive [facility]- 2 gallon bowel prep [...] PRE-SEDATION: Date: December 27, 2017 Tracie Farah [id number] 1990 ALLERGIES: Morphine Previous reaction to Sedation/Analgesia: [...] ride here with you? yes Who?: mother RN/PREVOCATIONAL/REHABILITATION COUNSELOR History: 1. Has your pain changed from [...] Date: December 27, 2017 Tracie Ocampojulita Farah [id number] 1990 See RN /PREVOCATIONAL/REHABILITATION COUNSELOR Pre-Sedation Note. IV ACCESS:Right subc PAC. BASELINE VS: See Sedation Flow Sheet. Tracie Donaldson Sofi [id number] 1990, presents to clinic for: Procedure: left [...] started. 1530 Midazolam 2mg IV given 1530 [id number] mcg IV given 1534 Midazolam 1mg IV given 1546 Midazolam 1mg IV given 1546 Egwnxwoe340 mcg IV given 1548 Fentanyl 100 mcg IV given bupivacaine 0.5%, 9mL given, 21mL wasted Kenalog 40mg/mL 1mL, 0 mL wasted 1555 abdominal scar trigger point completed. 1558 Fentanyl 50 mcg IV given 1601 Fentanyl 50 mcg IV given Largo placed for Popliteal Nerve Block.. Placement verified [...] + + documented in this encounter Results WATER TREATMENT PLANT REPAIRER MISC PROCEDURE (12/27/2017 3:28 PM PST) + [...]
--- OUTSIDE RECORDS SUMMARY | ~2020-05-26 | XMS | Encounter Summary ---
Demographics + + + | Address | [address] | | | [place] [address] | + + + | Home Phone [...] Providers + +------+ + | Care Health Insurance Specialist Name | Role | Phone | + +------+ + | Justo Vazquez MD | PCP | | + +------+ + Encounter Details +--------+ + + + + | Date | Type | Department | Care Team | Description | +--------+ + + + + | 07/26/ | MyChart | [facility] Comprehensive | Ilene Bright, | Labs | | 2017 | Encounter | Pain Center at | [facility] [address] | | | | | [facility] | [place], [place] | | | | | [address] | [address] | | | | | [place] for [facility] | [phone] | | | | | and Healing, | | | | | | | | | | | | Floor [place], [place] | | | | | | [address] | | | | | | [phone] | | | +--------+ + + + [...]
--- OUTSIDE RECORDS SUMMARY | ~2020-05-26 | XMS | Encounter Summary ---
Demographics + + + | Address | [address] | | | [place] [address] | + + + | Home Phone [...] Providers + +------+ + | Care Certified Court/Medical Interpreter Name | Role | Phone | [...] | | | | | extremity | [address] | [address] | | | | | Procedures | Phone: | Phone: | | | | | REQUEST TO | [phone] | [phone] | | | | | SURGERY | Fax: | Fax: | | | | | MANAGER BUSINESS PLANNING | [phone] | [phone] | +--------+---------+ + + + + Encounter Details +--------+ + + + + | Date | Type | Department | Care Team | Description | +--------+ + + + + | 12/ | Procedure | Pain Center at [facility] | Alex Sanchez, | Foot pain; Knee | | 2018 | | [address] | ,PhD [address] | pain; Procedure | | | | [facility] | [facility] | | | | | and Healing, | [place], [place] | | | | | | [address] | | | | | Floor [place], [place] | [phone] | | | | | [address] | | | | | | [phone] | | | +--------+ + + + [...] Sonia Key - 09/25/2018 1:00 PM PST [facility] Patient Instructions - Post Interventional Procedure Date: 09/25/2018 Name: Tracie Farah Date of : 1990 Procedure Performed: SCS DRG TRIAL LUMBAR [facility]. Procedure Provider: Alex Sanchez MD,PhD If you have any problems you believe are associated with your procedure tonight, Please call the Hospital Health Information Technologist, and ask for the Pain Management Consu ltant. If you have problems or questions between 9:00 am and 4:00 pm, Please call the [facility] Nurse Triage Line, . If [...] symptoms, dressing, SCS function, or chills. During RESTAURANT SHIFT LEADER open ho urs, call the [facility] ([phone]), after hours call the purification operator at [facility] ([phone]) and ask for the Adult Pain Service ammonia box operator. Identify yourself as a Comprehensive Pain [...] to the pat ient. Aleta Rebollar MD [facility] Comprehensive Pain Center Fqvqfxcjzugwur signed by Sonia Key at 09/25/2018 3:07 PM PST documented in this encounter Progress Notes Alex Sanchez MD,PhD - 09/25/2018 1:00 PM PSTI was present for the entire procedure ( DRG SCS trial) and all bocanegra elements of this visit. I reviewed the documentation of the othe r [facility] providers and concur with Dr. Rebollar's findings. I edited his note. Alex Sanchez MD,PhD Quarter Lining Smoother Anesthesiology and Pain Management [facility] Holmes onacZain bonner RN - 09/25/2018 1:00 PM [...] by physician. Concentration is 150mg/mL. Compounded by [employer] ) KETOROLAC IM Inject into the muscle [...] GRAM-5.86 GRAM SOLUTION Take as directed by [facility] Digestive [facility]- 2 gallon bowel prep POLYETHYLENE [...] PRE-SEDATION: Date: September 25, 2018 Tracie Farah [id number] 1990 ALLERGIES: Morphine Previous reaction to Sedation/Analgesia: [...] Date: September 25, 2018 Tracie Donaldson [facility] [id number] 1990 ALLERGIES: Morphine Previous reaction to Sedation/Analgesia: [...] See Sedation Flow Sheet. Tracie Donaldson [facility] [id number] 1990, presents to clinic for: Procedure: bilateral [...] OPERATIVE NOTE Date: September 25, 2018 Location: [facility] Procedure Room Tracie Donaldson [facility] [id number] :1990, presents to clinic for: PROCEDURE: DRG Spinal Cord Stimuation Trial with [employer] system LEVEL/LATERALITY: left L4, L5 PRE-OPERATIVE DIAGNOSIS: G90.522 Complex regional pain syndrome type 1 of left lower extremity POST-OPERATIVE DIAGNOSIS: G90.522 Complex regional pain syndrome type 1 of left lower extremity ATTENDING PHYSICIAN: Alex Sanchez MD,PhD SENIOR OPERATIONS MANAGER: Fellow Aleta Rebollar ANESTHESIA: Sedation delivered [...] sedation. Ms. Farah was escorted to the [facility] Procedure R oom, where she was [...] patient. Ms. Farah was transported to the [facility] [place] post-procedure recovery area where she made an uneventful recovery. Programming was performed in the PACU with aid of the device agricultural sales representative and Ms. Susie faust was sent home with a few programs . This was a unilateral procedure. Alex Sanchez MD,PhD was present for the entire procedure. Images were saved, and sent to [facility]. Ms. Farah was transported to the [facility] [place] post-procedure recovery area. She had an uneventful recovery. Before the procedure, Ms. Farah's pain was 7/10. After the procedure Ms. Farah's pain was 7/10. I, Sonia Key, am functioning as a scribe for Aleta Rebollar MD. I have reviewed and verified the above scribed note of my visit with this patient as record ed by Sonia Key. Aleta Rebollar MD PAIN CENTER AT [facility] 15TH FLOOR [address] [facility] Mail Code: [address] [address] documented in t his encounter Plan of Treatment Not on filedocumented as of this encounter Procedures + +--------+ + + + | Procedure Name | Priori | Date/Time | Associated Diagnosis | Comments | | | ty | | | | + +--------+ + + + | PA MOD SEDATION | Routin | 09/25/2018 | Complex regional | | | >=5YRS SAME MD/QUAL | e | 7:31 PM | pain syndrome type 1 | | | PROV; INIT 15 MIN | | PST | of left lower | | | | | | extremity | | + +--------+ + + + | PA PERCUT IMPLNT | Routin | 09/25/2018 | [...]
--- OUTSIDE RECORDS SUMMARY | ~2020-05-26 | XMS | Encounter Summary ---
Demographics + + + | Address | [address] | | | [place] [address] | + + + | Home Phone [...] Providers + +------+ + | Care Ict Business Analyst Name | Role | Phone | + +------+ + | Justo Vazquez MD | PCP | | + +------+ + Encounter Details +--------+ + + + + | Date | Type | Department | Care Team | Description | +--------+ + + + + | 10/09/ | Telephone | [facility] | Alex Sanchez, | | | 2018 | | Pain Center at | ,PhD [address] | | | | | [facility] | [address] | | | | | [address] | [place], [place] | | | | | [place] for [facility] | [address] | | | | | and Healing, | [phone] | | | | | | | | | | | Floor [place], [place] | | | | | | [address] | | | | | | [phone] | | | +--------+ + + + [...]
--- OUTSIDE RECORDS SUMMARY | ~2020-05-26 | XMS | Encounter Summary ---
Demographics + + + | Address | [address] | | | [place] [address] | + + + | Home Phone [...] Providers + +------+ + | Care Case Investigator Name | Role | Phone | + +------+ + | Allegra Gandhi | PCP | | + +------+ + Encounter Details +--------+ + + + + | Date | Type | Department | Care Team | Description | +--------+ + + + + | 02/13/ | Hospital | Nuclear Medicine | | | | 2011 | Encounter | at [facility] [address] | | | | | | [address] | | | | | | [address], | | | | | | [place], | | | | | | [place] [address] | | | | | | [phone] | | | +--------+ + + + [...]
--- OUTSIDE RECORDS SUMMARY | ~2020-05-26 | XMS | Encounter Summary ---
Demographics + + + | Address | [address] | | | [place] [address] | + + + | Home Phone [...] Team Providers + +------+ + | Care Gardener Name | Role | Phone | + +------+ + | Justo Vazquez MD | PCP | | + +------+ + Encounter Details +--------+ + + + + | Date | Type | Department | Care Team | Description | +--------+ + + + + | 08/30/ | Documentati | [facility] Center at [facility] | Jamel Madden G, | | | 2018 | on | [address] | PhD [address] | | | | | Center for Health | [place], [place] | | | | | and Healing, | [address] | | | | | | [phone] | | | | | Floor [place], [place] | | | | | | [address] | | | | | | [phone] | | | +--------+ + + + [...]
--- OUTSIDE RECORDS SUMMARY | ~2020-05-26 | XMS | Encounter Summary ---
Demographics + + + | Address | [address] | | | [place] [address] | + + + | Home Phone [...] Team Providers + +------+ + | Care Muck Hauler Name | Role | Phone | + [...] + + | 01/11/ | Telephone | [facility] | Alex Sanchez, | Referral To | | 2018 | | Pain Center at | ,PhD [address] | Orthopedics (discuss | | | | [facility] | [address] | ortho appointment) | | | | [address] | [place], [place] | | | | | [facility] | [address] | | | | | and Healing, | [phone] | | | | | Building | | | | | | Floor [facility] [place] | | | | | | [address] | | | | | | [phone] | | | +--------+ + + + [...]
--- OUTSIDE RECORDS SUMMARY | ~2020-05-26 | XMS | Encounter Summary ---
Demographics + + + | Address | [address] | | | [place] [address] | + + + | Home Phone [...] Providers + +------+ + | Care Data Modeler Name | Role | Phone | + [...] Rd | | | | | | [place], [place] | | | | | | [address] | | | +--------+ + + + [...]
--- OUTSIDE RECORDS SUMMARY | ~2020-05-26 | XMS | Encounter Summary ---
Demographics + + + | Address | [address] | | | [place] [address] | + + + | Home Phone [...] Providers + +------+ + | Care Sales Assistant Entertainment And Media Name | Role | Phone | [...] | 2017 | on | Center at [facility] [address] | [address] | | | | | [address] [place] | [facility] [place] | | | | | for Health and | [address] | | | | | Healing, Building 2 | [phone] | | | | | [place], [place] | | | | | | [address] | | | | | | [phone] | | | +--------+ + + + [...]
--- OUTSIDE RECORDS SUMMARY | ~2020-05-26 | XMS | Encounter Summary ---
Demographics + + + | Address | [address] | | | [place] [address] | + + + | Home Phone [...] Team Providers + +------+ + | Care Dressage Judge Name | Role | Phone | + [...] Request (ketamine) | | | | [facility] | [address] | | | | | [address] | [place], [place] | | | | | [facility] | [address] | | | | | and Healing, | [phone] | | | | | | | | | | | Floor [place], [place] | | | | | | [address] | | | | | | [phone] | | | +--------+ + + + [...]
--- OUTSIDE RECORDS SUMMARY | ~2020-05-26 | XMS | Encounter Summary ---
Demographics + + + | Address | [address] | | | [place] [address] | + + + | Home Phone [...] Providers + +------+ + | Care Emergency Department Coordinator Name | Role | Phone | [...] | | 2015 | | Center at [facility] [address] | MD Melissa | | | | | [address] [facility] | | | | | | for Health and | | | | | | [facility], Building 2 | | | | | | [place], [place] | | | | | | [address] | | | | | | [phone] | | | +--------+ + + + [...]
--- OUTSIDE RECORDS SUMMARY | ~2020-05-26 | XMS | Encounter Summary ---
Demographics + + + | Address | [address] | | | [place] [address] | + + + | Home Phone [...] MD | | | 2016 | | [place] [address] [address] | | | | | | [address] [facility] | | | | | | for Health and | | | | | | [facility], Building 2 | | | | | | [place], [place] | | | | | | [address] | | | | | | [phone] | | | +--------+ + + + [...]
--- OUTSIDE RECORDS SUMMARY | ~2020-05-26 | XMS | Encounter Summary ---
Demographics + + + | Address | [address] | | | [place] [address] | + + + | Home Phone [...] Team Providers + +------+ + | Care French Teacher Name | Role | Phone | [...] | pain, | [address] | [address] | | | | | unspecified | [address] | [address] | | | | | abdominal | Rd | [place], [place] | | | | | location | [facility] [place] | [address] | | | | | Pain of | [address] | Phone: | | | | | upper | | [phone] | | | | | abdomen | | Fax: | | | | | Complex | | [phone] | | | | | regional | [...] | | | | | | | QUILTING MACHINE OPERATOR | | | +--------+---------+ + + + + Reason for Visit + + + | Reason | Comments | + + + | Procedure | | + + + Encounter Details +--------+ + + + + | Date | Type | Department | Care Team | Description | +--------+ + + + + | 08/30/ | Telephone | [facility] | Ilene Bright, | Procedure | | 2017 | | Pain Center at | GRADUATE INTERN [address] | | | | | [facility] | [place], [place] | | | | | [address] | [address] | | | | | [facility] | [phone] | | | | | and Healing, | | | | | | Building | | | | | | Floor [place], [place] | | | | | | [address] | | | | | | [phone] | | | +--------+ + + + [...]
--- OUTSIDE RECORDS SUMMARY | ~2020-05-26 | XMS | Encounter Summary ---
Demographics + + + | Address | [address] | | | [place] [address] | + + + | Home Phone [...] Team Providers + +------+ + | Care Photoresist Printer Name | Role | Phone | + +------+ + | Justo Vazquez MD | PCP | | + +------+ + Encounter Details +--------+ + + + + | Date | Type | Department | Care Team | Description | +--------+ + + + + | 01/12/ | Telephone | [facility] | Kenny Gaspar MD | | | 2016 | | [place] [address] [address] | | | | | | [address] [facility] | | | | | | for Health and | | | | | | [facility], Building 2 | | | | | | [place], [place] | | | | | | [address] | | | | | | [phone] | | | +--------+ + + + [...]
--- OUTSIDE RECORDS SUMMARY | ~2020-05-26 | XMS | Encounter Summary ---
Demographics + + + | Address | [address] | | | [place] [address] | + + + | Home Phone [...] Providers + +------+ + | Care Oracle Hrms Consultant Name | Role | Phone | [...] Rd | | | | | | [place], [place] | | | | | | [address] | | | +--------+ + + + [...]
--- OUTSIDE RECORDS SUMMARY | ~2020-05-26 | XMS | Encounter Summary ---
Demographics + + + | Address | [address] | | | [place] [address] | + + + | Home Phone [...] Team Providers + +------+ + | Care Conservation Agent Name | Role | Phone | [...] | | | | | Procedures | [place], [place] | | | | | | MR | [id number] | | | | | | ENTEROGRAPHY [...] | | | | | Procedures | [place], [place] | | | | | | MR | [id number] | | | | | | ENTEROGRAPHY [...] 2017 | Encounter | Services at [facility] | [address] | | | | | [address] | [place], [place] | | | | | [address] [place] | [address] | | | | | [facility] | [phone] | | | | | [place], [place] | | | | | | [address] | | | | | | [phone] | | | +--------+ + + + [...]
--- OUTSIDE RECORDS SUMMARY | ~2020-05-26 | XMS | Encounter Summary ---
Demographics + + + | Address | [address] | | | [place] [address] | + + + | Home Phone [...] Team Providers + +------+ + | Care Slasher Runner Name | Role | Phone | + +------+ + | Justo Vazquez MD | PCP | | + +------+ + Encounter Details +--------+ + + + + | Date | Type | Department | Care Team | Description | +--------+ + + + + | 06/04/ | Documentati | [facility] Comprehensive | Alex Sanchez, | | | 2019 | on | Pain Center at | ,PhD [address] | | | | | [facility] | [address] | | | | | [address] | [place], [place] | | | | | [place] for [facility] | [address] | | | | | and Healing, | [phone] | | | | | | | | | | | Floor [place], [place] | | | | | | [address] | | | | | | [phone] | | | +--------+ + + + [...]
--- OUTSIDE RECORDS SUMMARY | ~2020-05-26 | XMS | Encounter Summary ---
Demographics + + + | Address | [address] | | | [place] [address] | + + + | Home Phone [...] Team Providers + +------+ + | Care Asw Specialist Name | Role | Phone | [...] Oliveira | | 2011 | IP | [address] | | House - Approved | | | | [place] [address] [place], | | | | | | [place] [address] | | | +--------+ + + + [...]
--- OUTSIDE RECORDS SUMMARY | ~2020-05-26 | XMS | Encounter Summary ---
Demographics + + + | Address | [address] | | | [place] [address] | + + + | Home Phone [...] Team Providers + +------+ + | Care Two Way Radio Technician Name | Role | Phone | + +------+ + | Justo Vazquez MD | PCP | | + +------+ + Encounter Details +--------+ + + + + | Date | Type | Department | Care Team | Description | +--------+ + + + + | 06/07/ | Telephone | [facility] | Alex Sanchez, | | | 2019 | | Pain Center at | ,PhD [address] | | | | | [facility] | [address] | | | | | [address] | [place], [place] | | | | | [place] for [facility] | [address] | | | | | and Healing, | [phone] | | | | | | | | | | | Floor [place], [place] | | | | | | [address] | | | | | | [phone] | | | +--------+ + + + [...]
--- OUTSIDE RECORDS SUMMARY | ~2020-05-26 | XMS | Encounter Summary ---
Demographics + + + | Address | [address] | | | [place] [address] | + + + | Home Phone [...] Providers + +------+ + | Care Manufacturing Inspector Name | Role | Phone | [...] 08/11/ | Documentati | [facility]EVIN Y[facility] at [facility] | Lab, Gi Procedure | Medical Records | | 2015 | on | [facility] [address] | | Review | | | | [address] [facility] for | | | | | | Health and Healing, | | | | | | Building 2 | | | | | | [place], [place] | | | | | | [address] | | | | | | [phone] | | | +--------+ + + + [...]
--- OUTSIDE RECORDS SUMMARY | ~2020-05-26 | XMS | Clinical Summary ---
Demographics + + + | Address | [address] | | | [place] [address] | + + + | Home Phone | | + + + | Preferred Language | Unknown | + + + | Marital Status | Single | + + + | Muslim Affiliation | 1073 | + + + | Race | Unknown | + + + | Ethnic Group | Unknown | + + + Author + + + | Author | [facility] | | | and [place] | + + + | Organization | [facility] | | | and [place] [...] | [place] | | | | | [address] | | + + + + + | Bryant Farah | ECON | Unknown | | + + + + + Care Team Providers + +------+ + | Care Banquet Cook Name | Role | Phone | [...] +--------+ +---------+--------+ | MEDICARE | MEDICA | [id number] | 07/15/20 | [phone] | | Medica | | | RE | | 15-Pre | 5 | | re | | | PART A | | sent | | | | | | AND B | | | | | | + +--------+ +--------+ +---------+--------+ | MEDICAID [place] | MEDICA | [id number] | | [phone] | | Medica | [...] | 1989 | [phone] | [place] [address] | | | evita | | | 6 (Home) | | + +--------+ +--------+ + +"
--- OUTSIDE RECORDS SUMMARY | ~2020-05-26 | XMS | Encounter Summary ---
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 | FAMILY | Mailstop | | | | | of lower | MEDICINE P | [address] | | | | | limb | [address] | [place], [place] | | | | | | [place], | [address] | | | | | | [place] [address] | Phone: | | | | | | Phone: | [phone] | | | | | | [phone] | Fax: | | | | | | Fax: | [phone] | | | | | | [phone] | | +--------+--------+ + + + + Encounter Details +--------+---------+ + + + | Date | Type | Department | Care Team | Description | +--------+---------+ + + + | 09/04/ | Office | [facility] Comprehensive | Dale Cantu, | CRPS (complex | | 2011 | Visit | Pain Center at | [address] [facility] | regional pain | | | | [facility] | [facility] [id number] | syndrome), lower | | | | [address] | [place], [place] | limb; Gait | | | | [place] for [facility] | [address] | disturbance; Sleep | | | | and Healing, | [phone] | disturbance, | | | | Building | | unspecified; | | | | Floor [place], [place] | | Adjustment reaction | | | | [address] | | | | | | [phone] | | | +--------+---------+ + + + [...] CRPS patients (Loretta Rousseau et al. Katrina Life Manager Med. 2010;152:152-158) . Bisphosphonate trial. Typically, I [...] Abraham MD - 09/04/2012 7:45 AM PDT [facility] Pain [...] The Review of Systems obtained by the [facility] was reviewed. Additional Review of Systems sean [...] of Pain: 13(1):17-21, 2008). DALE CANTU MD Floral Associate, [facility] Wire Wrapper Machine Operator, Pain Medicine Professor, Anesthesiology & [...]
--- OUTSIDE RECORDS SUMMARY | ~2020-05-26 | XMS | Encounter Summary ---
Demographics + + + | Address | [address] | | | [place] [address] | + + + | Home Phone [...] Providers + +------+ + | Care Tube Carrier Name | Role | Phone | [...] Complex | Alex Alba, | [facility] [address] | | | | | regional | ,PhD [address] | [address] | | | | | pain | [address] | [address] | | | | | syndrome | [address] | [address], | | | | | type 1 of | Rd | Basement | | | | | left lower | [place], [place] | [place], [place] | | | | | extremity | [address] | [address] | | | | | Muscle pain | Phone: | Phone: | | | | | Procedures | [phone] | [phone] | | | | | NM BONE | Fax: | Fax: | | | | | &/OR JOINT | [phone] | [phone] | | | | | IMAGING | [...] | | | | | | MI BONE | | | | | | | IMAGING, | | | | | | | LIMITED AREA | | | | | | | MI BONE | | | | | | | IMAGING | | | | | | | (SPECT) | | | +--------+--------+ + + + + Encounter Details +--------+ + + + + | Date | Type | Department | Care Team | Description | +--------+ + + + + | 12/27/ | Ancillary | [facility] Comprehensive | Alex Sanchez, | | | 2018 | Orders | Pain Center at | ,PhD [address] [facility] | | | | | [facility] | [address] | | | | | [address] | [place], [place] | | | | | [facility] | [address] | | | | | and Martina, | [phone] | | | | | [facility] | | | | | | Floor [place], [place] | | | | | | [address] | | | | | | [phone] | | | +--------+ + + + [...] Note | + + | Service Account, Dipity Res In Interface - 12/28/2017 11:43 AM [...]
--- OUTSIDE RECORDS SUMMARY | ~2020-05-26 | XMS | Encounter Summary ---
Demographics + + + | Address | [address] | | | [place] [address] | + + + | Home Phone [...] Team Providers + +------+ + | Care Alley Cleaner Name | Role | Phone | [...] | | Pain | Complex | Ilene, DEMAND PLANNING ANALYST | Catriona M, | | | | Management | regional | [address] | PSY D [address] | | | | | pain | Ave | [address] | | | | | syndrome | [place], [place] | [place], [place] | | | | | type 1 of | [address] | [address] Phone: | | | | | left lower | Phone: | [phone] | | | | | extremity | [phone] | Fax: | | | | | Intractable | Fax: | [phone] | | | | | cyclical | [phone] | | | | | | vomiting [...] | | | | | | | [place] | | | | | | | PSYCHIATRIC | | | | | | | DIAGNOSTIC | | | | | | | EVAL, NO MED | | | | | | | SVCS [place] | | | | | | | PSYCH TSTNG | | | | | | | PSYCH/PHYS | | | | | | | [place] | | | | | | | PSYCHOTHERAP | | | | | | | Y, 45 MIN | | | +--------+---------+ + + + + Encounter Details +--------+---------+ + + + | Date | Type | Department | Care Team | Description | +--------+---------+ + + + | 10/11/ | Office | Pain Center at [facility] | Jamel Bravo, | 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 The patient was referred for pain [...] by physician. Concentration is 150mg/mL. Compounded by [employer] ([phone]), Disp: , Rfl: 5 lamoTRIgine 200 mg [...] recon soln, Take as directed by [facility]- 2 gallon bowel prep, Disp: [...] e. 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 For enjoyment the patient watches TV, reads, [...] time I spent was approximately 50 minutes wqeq-yc-arid with the patient and approxima tely 1 hour 40 minutes of vwo-hpak-in-face testing, interpreting and synthesizing results. Jamel Bravo, PhD PAIN CENTER AT [facility] 15TH FLOOR [address] [facility] Mail Code: Ch15p [place] [address] documented in this en counter [...]
--- OUTSIDE RECORDS SUMMARY | ~2020-05-26 | XMS | Encounter Summary ---
Demographics + + + | Address | [address] | | | [place] [address] | + + + | Home Phone [...] Team Providers + +------+ + | Care Balancing Machine Operator Name | Role | Phone [...] ogy | | Ava Torres, | [address] | | | | | Constipation | [address] | [address] | | | | | , | [address] | [place] for | | | | | unspecified | [address] | Health and | | | | | constipation | [facility] [place] | Healing, | | | | | type | [address] | Building 2 | | | | | Procedures | | [place], [place] | | | | | CONSULT TO | | [address] | | | | | GI PROCEDURE | | Phone: | | | | | UNIT: | | [phone] | | | | | ANORECTAL | | Fax: | | | | | MANOMETRY | | [phone] | | | | | MT ANAL | | | | | | | PRESSURE | | | | | | | RECORD | | | +--------+--------+ + + + + Encounter Details +--------+ + + + + | Date | Type | Department | Care Team | Description | +--------+ + + + + | 09/14/ | Hospital | [facility] | Nurse, Gip [address] | | | 2016 | Encounter | [facility] [address] | [address] [facility] | | | | | [address] [facility] for | Road [place], [place] | | | | | Health and Healing, | [address] | | | | | Building 2 | | | | | | [place], [place] | | | | | | [address] | | | | | | [phone] | | | +--------+ + + + [...]
--- OUTSIDE RECORDS SUMMARY | ~2020-05-26 | XMS | Encounter Summary ---
Demographics + + + | Address | [address] | | | [place] [address] | + + + | Home Phone [...] Team Providers + +------+ + | Care Check Writer Name | Role | Phone | + +------+ + | Justo Vazquez MD | PCP | | + +------+ + Encounter Details +--------+ + + + + | Date | Type | Department | Care Team | Description | +--------+ + + + + | 07/30/ | Telephone | [facility] | Alex Sanchez, | | | 2019 | | Pain Center at | ,PhD [address] | | | | | [facility] | [address] | | | | | [address] | [place], [place] | | | | | [place] for [facility] | [address] | | | | | and Healing, | [phone] | | | | | | | | | | | Floor [place], [place] | | | | | | [address] | | | | | | [phone] | | | +--------+ + + + [...]
--- OUTSIDE RECORDS SUMMARY | ~2020-05-26 | XMS | Encounter Summary ---
Demographics + + + | Address | [address] | | | [place] [address] [...] Providers + +------+ + | Care Rn Otolaryngology Name | Role | Phone | + [...] | syndrome | [address] | [facility] | | | | | type 1 of | Rd | Rd [place], | | | | | left lower | [place], [place] | [place] | | | | | extremity | [address] | [address] | | | | | Procedures | Phone: | Phone: | | | | | REQUEST TO | [phone] | [phone] | | | | | SURGERY | Fax: | Fax: | | | | | JUNIOR PHP DEVELOPER | [phone] | [phone] | +--------+---------+ + + + + Encounter Details +--------+---------+ + + + | Date | Type | Department | Care Team | Description | +--------+---------+ + + + | 12/07/ | Office | [facility] Comprehensive | Eulogio | Complex regional | | 2019 | Visit | Pain Center at | MD Irene [address] | pain syndrome type 1 | | | | [facility] | [address] [place], | of left lower | | | | [address] | [place] [address] | extremity (Primary | | | | [facility] | [phone] | Dx); S/P insertion | | | | and Healing, | | of spinal cord | | | | Building , | | stimulator | | | | Floor [place], [place] | | | | | | [address] | | | | | | [phone] | | | +--------+---------+ + + + [...] Lujan MD - 12/07/2018 9:10 AM PST [facility] Pain Center Return Visit Date: 12/07/2018 Chief Complaint Patient presents with Back pain Pain in left leg History of Present Illness: Tracie Farah is a 28 year old female, whose last appoi ntment at the [facility] [place] was December 05, 2018, for a procedure [...] her 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 Goes to [employer] with a light load. Has been working at [employer], can' t work on [employer]. Has roommates. Allergies Allergen Reactions Morphine Anaphylaxis [...] GRAM-5.86 GRAM SOLUTION Take as directed by [facility]- 2 gallon bowel prep [...] and summary of old medical records (source: [employer]), as summarized in the body of the [...] present for the encounter. Irene Krishnan MD [facility] COMPREHENSIVE PA[facility] AT [place] [id number] [facility], 4th Floor Mail Code: [address] [id number] documented in thi s encounter Plan of Treatment Not on filedocumented as of this encounter Visit Diagnoses + + | Diagnosis | + + | Complex regional pain syndrome type 1 of left lower extremity - Primary | + + | S/P insertion of spinal cord stimulator | + + documented in this encounter
--- OUTSIDE RECORDS SUMMARY | ~2020-05-26 | XMS | Encounter Summary ---
Demographics + + + | Address | [address] | | | [place] [address] | + + + | Home Phone [...] Providers + +------+ + | Care Manager Client Name | Role | Phone | + +------+ + | Justo Vazquez MD | PCP | | + +------+ + Encounter Details +--------+ + + + + | Date | Type | Department | Care Team | Description | +--------+ + + + + | 03/11/ | Telephone | [facility] | Zeeshan Mahoney MD | | | 2019 | | Pain Center at | [address] | | | | | [facility] | [facility], | | | | | [address] | [place] [address] | | | | | [place] for [facility] | [phone] | | | | | and Healing, | | | | | | | | | | | | [place], [place] | | | | | | [address] | | | | | | [phone] | | | +--------+ + + + [...]
--- OUTSIDE RECORDS SUMMARY | ~2020-05-26 | XMS | Encounter Summary ---
Demographics + + + | Address | [address] | | | [place] [address] | + + + | Home Phone [...] Providers + +------+ + | Care Head Banquet Waitress Name | Role | Phone | + [...] Oliveira | | 2011 | IP | [address] | | House - Approved | | | | [place]iana Maldon[address] [place], | | | | | | [place] [address] | | | +--------+ + + + [...]
--- OUTSIDE RECORDS SUMMARY | ~2020-05-26 | XMS | Encounter Summary ---
Demographics + + + | Address | [address] | | | [place] [address] | + + + | Home Phone [...] Providers + +------+ + | Care Java Groovy Developer Name | Role | Phone | + +------+ + | Justo Vazquez MD | PCP | | + +------+ + Encounter Details +--------+ + + + + | Date | Type | Department | Care Team | Description | +--------+ + + + + | 09/27/ | Telephone | [facility] | Ilene Bright, | | | 2017 | | Pain Center at | OFFICE ADMINISTRATIVE ASSISTANT [address] | | | | | [facility] | [place], [place] | | | | | [address] | [address] | | | | | [place] for [facility] | [phone] | | | | | and Healing, | | | | | | | | | | | | Floor [place], [place] | | | | | | [address] | | | | | | [phone] | | | +--------+ + + + [...]
--- OUTSIDE RECORDS SUMMARY | ~2020-05-26 | XMS | Encounter Summary ---
Demographics + + + | Address | [address] | | | [place] [address] | + + + | Home Phone [...] Providers + +------+ + | Care Data Analyst Report Writer Name | Role | Phone | [...] Rd | | | | | | [place], [place] | | | | | | [address] | | | +--------+ + + + [...]
--- OUTSIDE RECORDS SUMMARY | ~2020-05-26 | XMS | Encounter Summary ---
Demographics + + + | Address | [address] | | | [place] [address] | + + + | Home Phone [...] | 04/23/ | Lab | Laboratory at [facility] | | Other chronic pain ; | | 2018 | | [address] | | Complex regional | | | | Center for [facility] | | pain syndrome type 1 | | | | and Healing, | | of left lower | | | | Building 2 | | extremity | | | | [place], [place] | | | | | | [address] | | | | | | [phone] | | | +--------+------+ + + + [...] LABORATORY | | Barbiturates >=200 ng/mL | [facility] | | Benzodiazepine >=200 ng/mL Cocaine | [...] | KEVIN SHAH | [address] | [place] [address] | | | SERVICES, LILLIAN | GUILLERMO [...]
--- OUTSIDE RECORDS SUMMARY | ~2020-05-26 | XMS | Encounter Summary ---
Demographics + + + | Address | [address] | | | [place] [address] | + + + | Home Phone | | + + + | Preferred Language | Unknown | + + + | Marital Status | Single | + + + | Zoroastrian Affiliation | 1073 | + + + | Race | Unknown | + + + | Ethnic Group | Unknown | + + + Author + + + | Author | [facility] | | | and [place] | + + + | Organization | [facility] | | | and [place] [...] [place] | | | | | [address] | | + + + + + | Bryant Farah | ERICKA | Unknown | | + + + + + Care Team Providers + +------+ + | Care Material Crew Supervisor Name | Role | Phone | + +------+ + PCP | Unavailable | + +------+ + Encounter Details +--------+ + + + + | Date | Type | Department | Care Team | Description | +--------+ + + + + | 09/12/ | Hospital | [facility] | | | | 2008 | Encounter | [facility] | | | | | | CENTER [address] | | | | | | [place], [place] | | | | | | [address] | | | | | | [phone] | | | +--------+ + + + [...]
--- OUTSIDE RECORDS SUMMARY | ~2020-05-26 | XMS | Encounter Summary ---
Demographics + + + | Address | [address] | | | [place] [address] | + + + | Home Phone [...] +------+ + | Care Vice President Of Operations Name | Role | Phone | + +------+ + | Justo Vazquez MD | PCP | | + +------+ + Encounter Details +--------+ + + + + | Date | Type | Department | Care Team | Description | +--------+ + + + + | 09/25/ | Pharmacy | [facility] | | | | 2018 | Visit | & [facility] | | | | | | [address] | | | | | | Mailcode: [place] | | | | | | [facility] | | | | | | Healing, Building [address] | | | | | | [place], [place] | | | | | | [address] | | | | | | [phone] | | | +--------+ + + + [...]
--- OUTSIDE RECORDS SUMMARY | ~2020-05-26 | XMS | Encounter Summary ---
Demographics + + + | Address | [address] | | | [place] [address] | + + + | Home Phone [...] Team Providers + +------+ + | Care Closing Coordinator Name | Role | Phone | [...] | | | | regional | ,PhD [address] | | | | | | pain | [address] | | | | | | syndrome | [address] | | | | | | type [address] of | [address] | | | | | | left lower | [place], [place] | | | | | | extremity | [address] | | | | | | Procedures | Phone: | | | | | | CONSULT TO | [phone] | | | | | | ORTHOPEDICS | Fax: | | | | | | AND | [phone] | | | | | | REHABILITATI | | | | | | | ON | | | +--------+--------+ + + + + Encounter Details +--------+ + + + + | Date | Type | Department | Care Team | Description | +--------+ + + + + | 06/08/ | Clay Artist | [facility] | Alex Sanchez, | Complex regional | | 2019 | | Pain Center at | ,PhD [address] [facility] | pain syndrome type 1 | | | | [facility] | [address] | of left lower | | | | [address] | [place], [place] | extremity (Primary | | | | Center for Health | [address] | Dx) | | | | and Healing, | [phone] | | | | | | | | | | | Floor [place], [place] | | | | | | [address] | | | | | | [phone] | | | +--------+ + + + [...]
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
--- OUTSIDE RECORDS SUMMARY | ~2020-05-26 | XMS | Encounter Summary ---
Demographics + + + | Address | [address] | | | [place] [address] | + + + | Home Phone [...] Providers + +------+ + | Care Insulation Worker Interior Surface Name | Role | Phone | + +------+ + | Justo Vazquez MD | PCP | | + +------+ + Encounter Details +--------+ + + + + | Date | Type | Department | Care Team | Description | +--------+ + + + + | 06/04/ | Documentati | [facility] Comprehensive | Alex Sanchez, | | | 2019 | on | Pain Center at | ,PhD [address] | | | | | [facility] | [address] | | | | | [address] | [place], [place] | | | | | [place] [facility] | [address] | | | | | and Healing, | [phone] | | | | | | | | | | | Floor [place], [place] | | | | | | [address] | | | | | | [phone] | | | +--------+ + + + [...]
--- OUTSIDE RECORDS SUMMARY | ~2020-05-26 | XMS | Encounter Summary ---
Demographics + + + | Address | [address] | | | [place] [address] | + + + | Home Phone [...] Team Providers + +------+ + | Care Bellhop Service Captain Name | Role | Phone | [...] Oliveira | | 2011 | IP | [address] | | House - Approved | | | | [place], | | | | | | [place] [address] | | | +--------+ + + + [...]
--- OUTSIDE RECORDS SUMMARY | ~2020-05-26 | XMS | Encounter Summary ---
Demographics + + + | Address | [address] | | | [place] [address] | + + + | Home Phone [...] Team Providers + +------+ + | Care Geochemical Laboratory Technician Name | Role | Phone | + +------+ + | Justo Vazquez MD | PCP | | + +------+ + Encounter Details +--------+ + + + + | Date | Type | Department | Care Team | Description | +--------+ + + + + | 03/12/ | Roll Up Machine Operator | [facility] Comprehensive | Alex Sanchez, | Complex regional | | 2019 | | Pain Center at | ,PhD [address] [facility] | pain syndrome type 1 | | | | [facility] | [address] | of left lower | | | | [address] | [place], [place] | extremity; S/P | | | | [facility] | [address] | insertion of spinal | | | | and Healing, | [phone] | cord stimulator | | | | | | | | | | Floor [place], [place] | | | | | | [address] | | | | | | [phone] | | | +--------+ + + + [...]
--- OUTSIDE RECORDS SUMMARY | ~2020-05-26 | XMS | Encounter Summary ---
Demographics + + + | Address | [address] | | | [place] [address] | + + + | Home Phone [...] Team Providers + +------+ + | Care Typesetters Printer Name | Role | Phone | [...] | CRPS | Dale Martinez MD | [facility] [address] | | | | | (complex | [address] | Pavilion | | | | | regional | [address] | [address] | | | | | pain | Mailstop | [address], | | | | | syndrome), | [address] | Basement | | | | | lower limb | [place], [place] | [place], [place] | | | | | Procedures | [address] | [address] | | | | | NM BONE &/[place] | Phone: | Phone: | | | | | JOINT | [phone] | [phone] | | | | | IMAGING 3 | Fax: | Fax: | | | | | PHASE | [phone] | [phone] | +--------+--------+ + + + + Consult [...] | | | regional | [place] | [address] | | | | | pain | FAMILY | [address] | | | | | syndrome), | MEDICINE P | [address] | | | | | lower limb | [address] | [place], [place] | | | | | Gait | [place], | [address] | | | | | disturbance | [place] [address] | Phone: | | | | | Muscle pain | Phone: | [phone] | | | | | Procedures | [phone] | Fax: | | | | | REQUEST TO | Fax: | [phone] | | | | | SURGERY | [phone] | | | | | | EDGERMAN | | | +--------+--------+ + + + + Consultation (Routine) +--------+--------+ + + + + | Status | Reason | Specialty | Diagnoses / | Referred By | Referred To | | | | | Procedures | Contact | Contact | +--------+--------+ + + + + | Closed | | Psychology / | Diagnoses | Beul[place], | [facility] | | | | Pain | CRPS | Dale Martinez MD | [facility] [address] | | | | Management | (complex | [address] | | | | | regional | [address] | Center for | | | | | pain | Mailstop | Health and | | | | | syndrome), | [address] | Healing, | | | | | lower limb | [place], [place] | Building | | | | | Gait | [address] | 1,15th Floor | | | | | disturbance | Phone: | [place], [place] | | | | | Muscle pain | [phone] | [address] | | | | | Procedures | Fax: | Phone: | | | | | CONSULT TO | [phone] | [phone] | | | | | PAIN CENTER | | Fax: | | | | | | | [phone] | +--------+--------+ + + + + Physical Therapy (Routine) +--------+--------+ + + + + | Status | Reason | Specialty | Diagnoses / | Referred By | Referred To | | | | | Procedures | Contact | Contact | +--------+--------+ + + + + | Closed | | Physical | Diagnoses | [place], | Edu [facility] | | | | Therapy | CRPS | Dale Martinez MD | [facility] [address] | | | | | (complex | [address] | | | | | regional | [address] | Mailcode: | | | | | pain | Mailstop | [facility] | | | | | syndrome), | [id number] | for Health | | | | | lower limb | [place], [place] | and Healing, | | | | | Gait | [address] | [facility] | | | | | disturbance | Phone: | [place], [place] | | | | | Muscle pain | [phone] | [address] | | | | | Procedures | Fax: | Phone: | | | | | PHYSICAL | [phone] | [phone] | | | | | THERAPY | [...] | | | 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 | FAMILY | [address] | | | | | of lower | MEDICINE P | [address] | | | | | limb | [address] | [place], [place] | | | | | | [place], | [address] | | | | | | [place] [address] | Phone: | | | | | | Phone: | [phone] | | | | | | [phone] | Fax: | | | | | | Fax: | [phone] | | | | | | [phone] | | +--------+--------+ + + + + Encounter Details +--------+---------+ + + + | Date | Type | Department | Care Team | Description | +--------+---------+ + + + | 02/13/ | Office | [facility] | Dale aCntu, | CRPS (complex | | 2011 | Visit | Pain Center at | MD [address] | regional pain | | | | [facility] | [facility] [id number] | syndrome), lower | | | | [address] | [place], [place] | limb; Gait | | | | [facility] | [address] | disturbance; Muscle | | | | and Healing, | [phone] | pain; Adjustment | | | | | | reaction | | | | Floor [place], [place] | | | | | | [address] | | | | | | [phone] | | | +--------+---------+ + + + [...] employed by the psychologists here at the [facility]. 2.2 Physical therapy can reduce pain and improve functional status. Suggest Guillermo Sanon . 3. Medication suggestions: 3.1 Continue titrating up duloxetine. 3.2 As for any patient being managed with chronic opioids, we do recommend that the patien t have a signed [facility] Material Risk Notice, agree to whatever [...] sintia sure this is scheduled with the Dealer Development Manager. Please bring a hydraulic lift driver with you. We may give you medications that make you drowsy or otherw ise unsafe to drive. If you do not have a hydraulic lift driver, we will not be able to do your procedure. DO NOT EAT ANYTHING AFTER MIDNIGHT If your appointment is after 1 PM , you may have a very light, low fat breakfast, such as h residential a piece of dry toast or a [...] PLEASE CONTACT THE COMPREHENSIVE PAIN CENTER AT [phone] ([phone]) FOR QUESTIONS OR IF YOU NEED TO CANCEL YOUR APPOINTMENT. [facility] Center documented in this encounter [...] pain management consultation by BJORN Mi [place] [facility] [address] [place] [address] Reason for visit Chief Complaint Patient presents with Pain in left leg Ankle pain left History of Present Illness: Tracie Farah is a 21 year old female with pain locate d in left lower extremity. She has been diagnosed with CRPS. She is referred to [facility] for consultation regarding this [...] by several orthopedic surgeons, Dr. Charles in [place], physical therapy, Occupational Therapy. Diagnostic and radiologic [...] no pain relief. Admitted to the inpatient [facility] program for 1 month in [...] entin, pregabalin, topiramate, tramadol, multiple opioids. Current [place]anger about 6-8/day. St arting duloxetine, at 30 mg/day. She feels that the most effective medication treatments ar e or have been opioids. As a result of her pain, Ms. Farah notes multiple changes in her life, including: "I don 't have a life, can't work, can't go to school." Poor mood, sleep, activity. Using crutche s recently because of pain flare. 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 Goes to [employer] with a light load. Has been working at [employer], can' t work on [employer]. Has roommates. Current Medication List 02/14/12 9:50 [...] Anaphylaxis As part of today's visit the [facility] new patient questionnaire [...] the pediatric inpatient pain program at [facility], and two attempted lumbar sympathetic blocks. Last [...] CRPS patients (Loretta Rousseau, et al. Katrina Urinalysis Technician Med. 2010;152: 152-158). Other treatment options [...] [facility] Suggest three ph ase bone [...] that the patien t have a signed [facility] Material Risk Notice, agree to whatever [...] her PCP, BJORN Villanueva. DALE CANTU MD Information Systems Security Developer, [facility] Media/Instructional Designer, Pain Medicine Professor, Anesthesiology & Perioperative [...] | | + +---------+ + + | [facility] DEPARTMENT OF | | | | | [...]
--- OUTSIDE RECORDS SUMMARY | ~2020-05-26 | XMS | Encounter Summary ---
Demographics + + + | Address | [address] | | | [place] [address] | + + + | Home Phone [...] Providers + +------+ + | Care Sports Health Club Membership Advisors Name | Role | Phone | + +------+ + | Justo Vazquez MD | PCP | | + +------+ + Encounter Details +--------+ + + + + | Date | Type | Department | Care Team | Description | +--------+ + + + + | 10/19/ | Telephone | [facility] | Ilene Bright, | | | 2017 | | Pain Center at | MOTION PICTURE CAMERA OPERATOR [address] | | | | | [facility] | [place], [place] | | | | | [address] | [address] | | | | | [place] for [facility] | [phone] | | | | | and Healing, | | | | | | | | | | | | Floor [place], [place] | | | | | | [address] | | | | | | [phone] | | | +--------+ + + + [...]
--- OUTSIDE RECORDS SUMMARY | ~2020-05-26 | XMS | Encounter Summary ---
Demographics + + + | Address | [address] | | | [place] [address] | + + + | Home Phone [...] Team Providers + +------+ + | Care Ditching Machine Operator Name | Role | Phone [...] | Complex | Alex Alba, | [facility] [address] | | | | | regional | ,PhD [address] | Pavilion | | | | | pain | [address] | [address] | | | | | syndrome | [address] | [address], | | | | | type 1 of | Rd | Basement | | | | | left lower | [place], [place] | [place], [place] | | | | | extremity | [address] | [address] | | | | | Muscle pain | Phone: | Phone: | | | | | Procedures | [phone] | [phone] | | | | | NM BONE | Fax: | Fax: | | | | | &/OR JOINT | [phone] | [phone] | | | | | IMAGING | [...] | | | | | | | AL BONE | | | | | | | IMAGING, | | | | | | | LIMITED AREA | | | | | | | AL BONE | | | | | | [...] | | 2018 | Encounter | at [facility] [address] | ,PhD [address] [facility] | | | | | Ayala [address] | [address] | | | | | [address], | [place], [place] | | | | | [facility], | [address] | | | | | [place] [address] | [phone] | | | | | [phone] | | | +--------+ + + + [...]
--- OUTSIDE RECORDS SUMMARY | ~2020-05-26 | XMS | Encounter Summary ---
Demographics + + + | Address | [address] | | | [place] [address] | + + + | Home Phone [...] Providers + +------+ + | Care Head Teller Name | Role | Phone | + [...] + + | 01/11/ | Telephone | [facility] | Alex Sanchez, | Referral To | | 2018 | | Pain Center at | ,PhD [address] | Orthopedics (discuss | | | | [facility] | [address] | ortho appointment) | | | | [address] | [place], [place] | | | | | [facility] | [address] | | | | | and Healing, | [phone] | | | | | Building | | | | | | Floor [facility] [place] | | | | | | [address] | | | | | | [phone] | | | +--------+ + + + [...]
--- OUTSIDE RECORDS SUMMARY | ~2020-05-26 | XMS | Encounter Summary ---
Demographics + + + | Address | [address] | | | [place] [address] | + + + | Home Phone [...] Providers + +------+ + | Care Radio Presenter Name | Role | Phone | + [...] 2016 | | Pain Center at | POLISHER EYEGLASS FRAMES [address] | | | | | [facility] | [place], [place] | | | | | [address] | [address] | | | | | [facility] | [phone] | | | | | and Healing, | | | | | | Building | | | | | | [place], [place] | | | | | | [address] | | | | | | [phone] | | | +--------+ + + + [...]
--- OUTSIDE RECORDS SUMMARY | ~2020-05-26 | XMS | Encounter Summary ---
Demographics + + + | Address | [address] | | | [place] [address] | + + + | Home Phone [...] Team Providers + +------+ + | Care Sock And Stocking Ironer Name | Role | Phone | + [...] | | | 2019 | Event | [facility] | MD Juan [address] | | | | | and Healing Surgery | [address] | | | | | Center Admitting | [place], [place] | | | | | Desk Located on the | [address] | | | | | 4th floor [address] | [phone] | | | | | [address], | | | | | | [place] [address] | Arben Valerio MD | | | | | | [address] | | | | | | [address] | | | | | | [place], [place] | | | | | | [address] | | | | | | [phone] | | | | | | | [...]
--- OUTSIDE RECORDS SUMMARY | ~2020-05-26 | XMS | Encounter Summary ---
Demographics + + + | Address | [address] | | | [place] [address] | + + + | Home Phone [...] Team Providers + +------+ + | Care Relay Engineer Name | Role | Phone | [...] | Encounter | Lab at [facility] [address] | ,PhD [address] [facility] | | | | | [facility] for | [facility] | | | | | Health and [facility], | [place], [place] | | | | | [place] [address] [address] [facility] | [address] | | | | | Floor [place], [place] | [phone] | | | | | [address] | | | | | | [phone] | | | +--------+ + + + [...]
--- OUTSIDE RECORDS SUMMARY | ~2020-05-26 | XMS | Encounter Summary ---
Demographics + + + | Address | [address] | | | [place] [address] | + + + | Home Phone [...] Team Providers + +------+ + | Care Neck Skewer Name | Role | Phone | + +------+ + | Justo Vazquez MD | PCP | | + +------+ + Encounter Details +--------+ + + + + | Date | Type | Department | Care Team | Description | +--------+ + + + + | 05/14/ | Telephone | [facility] | Alex Sanchez, | | | 2019 | | Pain Center at | ,PhD [address] | | | | | [facility] | [address] | | | | | [address] | [place], [place] | | | | | [place] for [facility] | [address] | | | | | and Healing, | [phone] | | | | | | | | | | | Floor [place], [place] | | | | | | [address] | | | | | | [phone] | | | +--------+ + + + [...]
--- OUTSIDE RECORDS SUMMARY | ~2020-05-26 | XMS | Encounter Summary ---
Demographics + + + | Address | [address] | | | [place] [address] [...] Providers + +------+ + | Care National Park Ranger Name | Role | Phone | + +------+ + | Justo Vazquez MD | PCP | | + +------+ + Encounter Details +--------+ + + + + | Date | Type | Department | Care Team | Description | +--------+ + + + + | 10/20/ | Telephone | [facility] | Ilene Bright, | | | 2017 | | Pain Center at | NURSE TECHNICIAN [address] | | | | | [facility] | [place], [place] | | | | | [address] | [address] | | | | | [place] for [facility] | [phone] | | | | | and Healing, | | | | | | | | | | | | Floor [place], [place] | | | | | | [address] | | | | | | [phone] | | | +--------+ + + + [...]
--- OUTSIDE RECORDS SUMMARY | ~2020-05-26 | XMS | Encounter Summary ---
Demographics + + + | Address | [address] | | | [place] [address] | + + + | Home Phone [...] + +------+ + | Care Professor Of Biblical Studies Name | Role | Phone | [...] | [facility] | Aleta Rebollar MD [address] | Nausea | | 2018 | | Pain Center at | [address] | | | | | [facility] | [place], [place] | | | | | [address] | [address] | | | | | [facility] | [phone] | | | | | and Healing, | | | | | | Building | | | | | | [place], [place] | | | | | | [address] | | | | | | [phone] | | | +--------+ + + + [...]
--- OUTSIDE RECORDS SUMMARY | ~2020-05-26 | XMS | Encounter Summary ---
Demographics + + + | Address | [address] | | | [place] [address] | + + + | Home Phone [...] Team Providers + +------+ + | Care Securities Broker Name | Role | Phone | [...] | | Pain Center at | GARMENT ALTERATION EXAMINER [address] | | | | | [facility] | [place], [place] | | | | | [address] | [address] | | | | | [facility] | [phone] | | | | | and Healing, | | | | | | [facility] | | | | | | [place], [place] | | | | | | [address] | | | | | | [phone] | | | +--------+ + + + [...]
--- OUTSIDE RECORDS SUMMARY | ~2020-05-26 | XMS | Encounter Summary ---
Demographics + + + | Address | [address] | | | [place] [address] | + + + | Home Phone [...] Team Providers + +------+ + | Care Generation Engineering Technologist Name | Role | Phone [...] CRPS | Janak Martinez MD | [facility] [address] | | | | Management | (complex | [address] | | | | | regional | [address] | Center for | | | | | pain | [address] | Health and | | | | | syndrome), | [id number] | Healing, | | | | | lower limb | [place], [place] | Building | | | | | Gait | [address] | 1,15th Floor | | | | | disturbance | Phone: | [place], [place] | | | | | Muscle pain | [phone] | [address] | | | | | Procedures | Fax: | Phone: | | | | | CONSULT TO | [phone] | [phone] | | | | | PAIN CENTER | | Fax: | | | | | | | [phone] | +--------+--------+ + + + + Encounter Details +--------+---------+ + + + | Date | Type | Department | Care Team | Description | +--------+---------+ + + + | 03/20/ | Office | Pain Center at [facility] | Shelia Feldman, PhD | Unspecified | | 2011 | Visit | [address] | | adjustment reaction | | | | Center for Health | | (Primary Dx) | | | | and Healing, | | | | | | Building | | | | | | Floor [place], [place] | | | | | | [address] | | | | | | [phone] | | | +--------+---------+ + + + [...] [facility] Name: Tracie Farah MR#: [id number] Date of : 1990 Date: March 20, 2012 Attending Psychologist: SHELIA FELDMAN, PHD CPT: 16963 Duration: 60min Psych: 309.0 Pain: 355.71 Tracie arrived on time for today's appointment, casually dressed and neatly groomed. Affect was appropriate, mood normothymic. She drove herself today and used crutches. She stated t hat she was doing "better", mainly because she has returned to work at [employer]. She is wo rking about [...] discretion, not currently planned. SHELIA FELDMAN, PHD Proofreader Licensed Clinical Psychologist [facility] [place] Department of Anesthesiology & Perioperative Medicine [facility] [address] [place], [place] [id number] Historical Information: Introduction: Tracie Farah is a 21-year-old woman with >5 year hx of CRPS, R LE.S ocial & Psychiatric History: Tracie Farah lives in [place] in a shared apartment space. She has struggled wi th CRPS for at least 5 years; original injury to her foot was in 2001. In summer 2010 she h ad inpt pain tx at [facility] with limited mcc benefit. Recent flare; [...] learned some pain management techniques at [facility], mainly DB and PMR, which she [...] Travel is a barrier; she lives in [place] DSM-IV Diagnoses/Impressions: Bogue I: 1. 309.9 Unspecified Adjustment Reaction 2. 780.50 Sleep Disturbance Bogue II: Deferred. Bogue III: Patient Active Problem List Diagnoses CRPS (complex regional pain syndrome), lower limb Gait disturbance Muscle pain Adjustment reaction Bogue IV: CRPS pain, pain related debility;difficulty attending class, working; family stres s; stalker ex-bf Bogue V: Global Assessment of Functioning = 75 [...] me should questions arise. SHELIA FELDMAN, PHD Proofreader Licensed Clinical Psychologist [facility] [place] Department of Anesthesiology & Perioperative Medicine [facility] [address] [place] [address] documented in this enc ounter Plan of Treatment Not on filedocumented as of this encounter Visit Diagnoses + + | Diagnosis | + + | Unspecified adjustment reaction - Primary | + + documented in this encounter
--- OUTSIDE RECORDS SUMMARY | ~2020-05-26 | XMS | Encounter Summary ---
Demographics + + + | Address | [address] | | | [place] [address] | + + + | Home Phone [...] Providers + +------+ + | Care Web Development Manager Name | Role | Phone [...] Vomiting; | | 2016 | | Center [place] [address] [address] | | Constipation; | | | | [address] [place] | | Abdominal pain | | | | for Health and | | | | | | Healing, Building 2 | | | | | | [place], [place] | | | | | | [address] | | | | | | [phone] | | | +--------+ + + + [...]
--- OUTSIDE RECORDS SUMMARY | ~2020-05-26 | XMS | Encounter Summary ---
Demographics + + + | Address | [address] | | | [place] [address] | + + + | Home Phone [...] Providers + +------+ + | Care Partner Integration Planner Name | Role | Phone | + +------+ + | Justo Vazquez MD | PCP | | + +------+ + Encounter Details +--------+ + + + + | Date | Type | Department | Care Team | Description | +--------+ + + + + | 12/05/ | Pharmacy | [facility] | | | | 2019 | Visit | & Healing Pharmacy | | | | | | [address] | | | | | | Mailcode: [place] | | | | | | [facility] and | | | | | | Healing, Building 1 | | | | | | [place], [place] | | | | | | [address] | | | | | | [phone] | | | +--------+ + + + [...]
--- OUTSIDE RECORDS SUMMARY | ~2020-05-26 | XMS | Encounter Summary ---
Demographics + + + | Address | [address] | | | [place] [address] | + + + | Home Phone [...] Team Providers + +------+ + | Care Therapist Phys Name | Role | Phone | + +------+ + | Justo Vazquez MD | PCP | | + +------+ + Encounter Details +--------+ + + + + | Date | Type | Department | Care Team | Description | +--------+ + + + + | 03/17/ | MyChart | [facility] | Yun Frey NP | Welcome | | 2017 | Encounter | Pain Center at | [address] | | | | | [facility] | [place], [place] | | | | | [address] | [address] | | | | | [place] for [facility] | [phone] | | | | | and Healing, | | | | | | | | | | | | Floor [place], [place] | | | | | | [address] | | | | | | [phone] | | | +--------+ + + + [...]
--- OUTSIDE RECORDS SUMMARY | ~2020-05-26 | XMS | Encounter Summary ---
Demographics + + + | Address | [address] | | | [place] [address] | + + + | Home Phone [...] Providers + +------+ + | Care Soap Press Feeder Name | Role | Phone [...] | | Complex | Alex Alba, | [facility] [address] | | | | | regional | ,PhD [address] | Pavilion | | | | | pain | [address] | | | | | syndrome | [address] | [address], | | | | | type 1 of | Rd | Basement | | | | | left lower | [place], [place] | [place], [place] | | | | | extremity | [address] | [address] | | | | | Muscle pain | Phone: | Phone: | | | | | Procedures | [phone] | [phone] | | | | | NM BONE | Fax: | Fax: | | | | | &/OR JOINT | [phone] | [phone] | | | | | IMAGING | [...] | | | | | | [place] BONE | | | | | | | IMAGING, | | | | | | | LIMITED AREA | | | | | | | NV BONE | | | | | | | IMAGING | | | | | | | (SPECT) | | | +--------+--------+ + + + + Encounter Details +--------+ + + + + | Date | Type | Department | Care Team | Description | +--------+ + + + + | 12/27/ | Ancillary | [facility] | Alex Sanchez, | | | 2018 | Orders | Pain Center at | ,PhD [address] [facility] | | | | | [facility] | [address] | | | | | [address] | [place], [place] | | | | | [facility] | [address] | | | | | and [place]ina, | [phone] | | | | | [facility] | | | | | | Floor [place], [place] | | | | | | [address] | | | | | | [phone] | | | +--------+ + + + [...] Note | + + | Service Account, [employer] Res In Interface - 12/28/2017 11:43 AM [...]
--- OUTSIDE RECORDS SUMMARY | ~2020-05-26 | XMS | Encounter Summary ---
Demographics + + + | Address | [address] | | | [place] [address] | + + + | Home Phone [...] Providers + +------+ + | Care Farm Management Teacher Name | Role | Phone [...] | | | regional | [place] | [address] | | | | | pain | FAMILY | [address] | | | | | syndrome), | MEDICINE P | [address] | | | | | lower limb | [address] | [place], [place] | | | | | Pain in | [place], | [address] | | | | | joint, lower | [place] [address] | Phone: | | | | | leg | Phone: | [phone] | | | | | Procedures | [phone] | Fax: | | | | | REQUEST TO | Fax: | [phone] | | | | | SURGERY | [phone] | | | | | | FAST FOOD TEAM MEMBER | | | +--------+--------+ + + + + Encounter Details +--------+ + + + + | Date | Type | Department | Care Team | Description | +--------+ + + + + | 08/02/ | Procedure | Pain Center at [facility] | Dale Cantu, | Procedure; | | 2011 | | [address] | [address] | Injection; Procedure | | | | [facility] | [facility] [id number] | | | | | and Healing, | [place], [place] | | | | | [facility] | [address] | | | | | Floor [place], [place] | [phone] | | | | | [address] | | | | | | [phone] | | | +--------+ + + + [...] e might be different from the original. [facility] Patient Instructions - Post Spinal Cord Stimulator Trial Date: 08/02/2012 Name: Tracie Farah Date of : 1990 Procedure Performed: SCS TRIAL LUMBAR [facility] Procedure Provider: Dale Cantu [facility] Procedure Rm If you have any problems you believe are associated with your procedure tonight, Please call the Hospital Column Precaster, and ask for the Pain Management Consu ltant. If you have problems or questions between 9:00 am and 4:00 pm, Please call the [facility] Nurse Triage Line, . If you go to an Emergency Room, please bring this form with you. DISCHARGE INSTRUCTIONS Call immediately and/or go to the Emergency department if any concerns about wound healing, fever, or chills. Also call for concerns about SCS function. During [facility] open hours, call the [facility] ([phone]), after hours call the granulizing machine operator at [facility] ([phone]) and ask for t he Adult Pain Service casino floor person. Identify yourself as a Comprehensive Pain [...] the wounds, dressing, or SCS function. During FIELD PROFESSIONAL o pen hours, call the FIELD PROFESSIONAL ([phone]), after hours call the granulizing machine operator at [facility] ([phone] ) and ask for the Adult Pain Service casino floor person. Identify yourself as my patient with a concer n about postoperative recovery. If there are concerns about the SCS programming, contact t he outside sales account representative from the SCS core stripper. If the stimulation is not covering your area o f pain, your SCS should be reprogrammed. Do not take any blood thinning medications during the trial. Instructions printed and reviewed with the patient. Copy of instructions given to Ms. Nemo renee. DALE CANTU MD [facility] documented in this encounter [...] and postoperative care instructions. DALE CANTU MD Mcat Tutor, [facility] Corporate Planner, Pain Medicine Professor, Anesthesiology & Perioperative Medicine Diana Arroyo RN - 08/02/2012 7:34 AM PDT PRE-SEDATION: Date: August 02, 2012 Tracie Farah [id number] 1990 ALLERGIES: Morphine Previous reaction to Sedation/Analgesia: MEDICATIONS: Current Outpatient Prescriptions Medication HYDROcodone-acetaminophen (NORCO) 10-325 mg Oral Tablet KETOROLAC TROMETHAMINE (TORADOL IM) levonorgestrel (MIRENA) 20 mcg/24 hr Intrauterine IUD LORazepam 1 mg Oral Tablet ondansetron (ZOFRAN) 8 mg Oral Tablet promethazine 25 mg Oral Tablet Meets NPO Guidelines. IV ACCESS: IV in Place [facility] @ 0655 BASELINE VS: See Sedation Flow Sheet. Tracie [facility]onaldson [facility] [id number] 1990, presents to clinic for: Procedure: Spinal [...] 0732 - 0733: [place]azolam 2 [place] [address]: Fentanyl 25 mcg IV 0740 - 0741: Midazolam 2 mg IV 0742: Procedure started 0743 - 0744: Fentanyl 50 mcg IV 0753-54: Fentanyl 25 mcg IV Lead # 1 placed Lead # 2 placed 0801: Stimulation started. 0829: Pt reports stimulation to usual areas of pain. Leads secured. 0845: Pt returned to [facility] in stable condition. IV dc'd. Evelia Parsons [...] OPERATIVE NOTE Date: August 02, 2012 Location: [facility] Procedure Room Tracie Farah [id number] :1990, presents to clinic for: PROCEDURE: Spinal Cord Stimuation Trial LEVEL/LATERALITY: midline lumbar PRE-OPERATIVE DIAGNOSIS: 355.71B CRPS (complex regional pain syndrome), lower limb 719.46 Pain in joint, lower leg 781.2Q Gait disturbance POST-OPERATIVE DIAGNOSIS: 355.71B CRPS (complex regional pain syndrome), lower limb 719.46 Pain in joint, lower leg 781.2Q Gait disturbance ATTENDING PHYSICIAN: Dale Cantu MD [place] MANAGER: Fellow Bear Yost DO ANESTHESIA: sedation delivered [...] joint, lower leg 781.2Q Gait disturbance Ms. aFrah has longstanding Complex Regional Pain Syndrome that [...] to the [facility] Procedure Ro om, where she was positioned Prone on the examination table. TEAM PAUSE: The physician-led pause was conducted, and is documented in the Nursing note. Monitors were placed, including ECG, NIBP and SpO2. The skin was prepared with Chloroprep and sterile drapes were applied. Arledia system was used for this procedure. The company outside sales account representative was theresa knutson for the [...] pain. Ms. Farah was transported to the [facility] post-procedure recovery area where she made an uneventful recovery. Images were saved, and sent to [employer]. Ms. Farha will have her next appointment in 2 [...] about wound healing or SCS function. During [facility] open hours, call the [facility] ([phone]), after h ours call the granulizing machine operator at [facility] ([phone]) and ask for the Adult Pain Service casino floor person. Identify yourself as my patient with [...] + +--------+ + + + | NE PERCUT IMPLNT | Routin | 08/03/2012 | [...]
--- OUTSIDE RECORDS SUMMARY | ~2020-05-26 | XMS | Encounter Summary ---
Demographics + + + | Address | [address] | | | [place] [address] | + + + | Home Phone [...] Providers + +------+ + | Care Hand Buffer Name | Role | Phone | + +------+ + | Justo Vazquez MD | PCP | | + +------+ + Encounter Details +--------+ + + + + | Date | Type | Department | Care Team | Description | +--------+ + + + + | 04/23/ | Anesthesia | Pain Center at [facility] | Aleta Rebollar MD [address] | | | 2019 | Event | [address] | [address] | | | | | [place] for Health | [place], [place] | | | | | and Healing, | [address] | | | | | | [phone] | | | | | Floor [place], [place] | | | | | | [address] | | | | | | [phone] | | | +--------+ + + + [...]
--- OUTSIDE RECORDS SUMMARY | ~2020-05-26 | XMS | Encounter Summary ---
Demographics + + + | Address | [address] | | | [place] [address] | + + + | Home Phone [...] Providers + +------+ + | Care Search Engine Optimization Strategist Name | Role | Phone | + +------+ + | Justo Vazquez MD | PCP | | + +------+ + Encounter Details +--------+ + + + + | Date | Type | Department | Care Team | Description | +--------+ + + + + | 01/31/ | Documentati | Vascular Access at | [place], | | | 2017 | on | [facility] [address] | Maru RN [address] | | | | | [address] | [address] | | | | | [facility] | [place], [place] | | | | | [place], [place] | [address] | | | | | [address] | | | | | | [phone] | | | +--------+ + + + [...]
--- OUTSIDE RECORDS SUMMARY | ~2020-05-26 | XMS | Encounter Summary ---
Demographics + + + | Address | [address] | | | [place] [address] | + + + | Home Phone [...] Team Providers + +------+ + | Care Natural Resource Specialist Name | Role | Phone | [...]
--- OUTSIDE RECORDS SUMMARY | ~2020-05-26 | XMS | Encounter Summary ---
Demographics + + + | Address | [address] | | | [place] [address] | + + + | Home Phone [...] Providers + +------+ + | Care Rn Pacu Name | Role | Phone | + +------+ + | Justo Vazquez MD | PCP | | + +------+ + Encounter Details +--------+ + + + + | Date | Type | Department | Care Team | Description | +--------+ + + + + | 07/28/ | Documentati | [facility] Comprehensive | Ilene Bright, | | | 2017 | on | Pain Center at | GASOLINE PLANT OPERATOR [address] | | | | | [facility] | [facility] [place] | | | | | [address] | [address] | | | | | [place] for [facility] | [phone] | | | | | and Healing, | | | | | | | | | | | | Floor [place], [place] | | | | | | [address] | | | | | | [phone] | | | +--------+ + + + [...]
--- OUTSIDE RECORDS SUMMARY | ~2020-05-26 | XMS | Encounter Summary ---
Demographics + + + | Address | [address] | | | [place] [address] | + + + | Home Phone [...] Providers + +------+ + | Care Ticket Machine Operator Name | Role | Phone [...] + + | 12/05/ | Surgery | [facility] INTRA OP | Alex Sanchez, | BILATERAL DORSAL | | 2019 | | Center for [facility] | ,PhD [address] [facility] | ROOT GANGLION SPINAL | | | | and Healing Surgery | [address] | CORD STIMULATOR | | | | Center Admitting | [place], [place] | IMPLANT LUMBAR; | | | | Desk Located on the | [address] | POSTERIOR | | | | 4th floor [address] | [phone] | | | | | [address] [place], | | | | | | [place] [address] | | | +--------+---------+ + + + [...] s/p successful DRG trial lead system with [employer] System on 09/25/2018. No changes in [...] NOTE Date: December 05, 2018 Location: [facility] [place] | | | Tracie Farah [id number] :1990, presents to clinic | | | for: Dorsal root ganglion stimulator implant PROCEDURE: Dorsal | | | root ganglion stimulator implant PRE-OPERATIVE DIAGNOSIS: Complex | | | regional Pain syndrome type 1 of left lower extremity | | | POST-OPERATIVE DIAGNOSIS: Complex regional Pain syndrome type 1 of | | | left lower extremity ATTENDING PHYSICIAN: Alex Sanchez | | | SUPERVISOR METALIZING: Arben Valerio MD ANESTHESIA: sedation by IVIS Cole | | | Carmen, supervised by station usher Ilir Valdes. | | | FINDINGS: Appropriate [...] Ms. Farah was escorted to the [facility] | | | [place], where [...] to the | | | [employer] chemical sales representative. A test stimulation was performed [...] recovery. Images were saved, and sent to [employer]. | | | Alex Sanchez (attending) was present for the entire procedure. | | | Arben Valerio MD I was present for the entire procedure | | | (spinal cord stimulator implantation with DRG leads at left L4 and | | | L5) and all obcanegra elements of this visit. I reviewed the | | | documentation of the other SKILL TRAINING PROGRAM COORDINATOR providers and concur with | | | Iman's findings. I edited his note. Alex Sanchez, | | | ,PhD Skill Training Program Coordinator Anesthesiology and Pain Management | | | [facility] | | + [...] | JOSE ANTONIO MIN | [address] [facility] [address] | [place] [address] | | | OF CARE TESTS | [...]
--- OUTSIDE RECORDS SUMMARY | ~2020-05-26 | XMS | Encounter Summary ---
Demographics + + + | Address | [address] | | | [place] [address] | + + + | Home Phone [...] Team Providers + +------+ + | Care Statement Clerks Supervisor Name | Role | Phone | [...] | Alex Alba, | [facility] [address] | | | | | regional | ,PhD [address] | Pavilion | | | | | pain | [address] | | | | | syndrome | [address] | [address], | | | | | type 1 of | Rd | Basement | | | | | left lower | [place], [place] | [place], [place] | | | | | extremity | [address] | [address] | | | | | Muscle pain | Phone: | Phone: | | | | | Procedures | [phone] | [phone] | | | | | NM BONE | Fax: | Fax: | | | | | &/OR JOINT | [phone] | [phone] | | | | | IMAGING | [...] | | | | | | | ID BONE | | | | | | | IMAGING, | | | | | | | LIMITED AREA | | | | | | | ID BONE | | | | | | [...] | | 2018 | Encounter | at [facility] [address] | ,PhD [address] [facility] | | | | | [address] | [address] | | | | | [address], | [place], [place] | | | | | [facility], | [address] | | | | | [place] [address] | [phone] | | | | | [phone] | | | +--------+ + + + [...]
--- OUTSIDE RECORDS SUMMARY | ~2020-05-26 | XMS | Encounter Summary ---
Demographics + + + | Address | [address] | | | [place] [address] | + + + | Home Phone [...] Providers + +------+ + | Care Business Center Representative Name | Role | Phone | [...] | | | regional | [place] | [address] | | | | | pain | FAMILY | Mailstop | | | | | syndrome), | MEDICINE P | [id number] | | | | | lower limb | [address] | [place], [place] | | | | | Pain in | [place], | [address] | | | | | joint, lower | [place] [address] | Phone: | | | | | leg | Phone: | [phone] | | | | | Procedures | [phone] | Fax: | | | | | REQUEST TO | Fax: | [phone] | | | | | SURGERY | [phone] | | | | | | [place] | | | +--------+--------+ + + + [...] | | | sympathetic | [place] | [address]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 | FAMILY | Mailstop | | | | | of lower | MEDICINE P | 827437 | | | | | limb | [address] | [place], [place] | | | | | | [place], | [address] | | | | | | [place] [address] | Phone: | | | | | | Phone: | [phone] | | | | | | [phone] | Fax: | | | | | | Fax: | [phone] | | | | | | [phone] | | +--------+--------+ + + + + Encounter Details +--------+---------+ + + + | Date | Type | Department | Care Team | Description | +--------+---------+ + + + | 06/06/ | Office | [facility] Comprehensive | Dale Cantu, | CRPS (complex | | 2011 | Visit | Pain Center at | MD [address] [facility] | regional pain | | | | Former[facility] | [facility] [id number] | syndrome), lower | | | | [address] | [place], [place] | limb; Pain in joint, | | | | Center for Health | [address] | lower leg | | | | and Healing, | [phone] | | | | | | | | | | | Floor [place], [place] | | | | | | [address] | | | | | | [phone] | | | +--------+---------+ + + + [...] Dale Cantu MD - 06/06/2012 11:49 [facility] Pre-Procedure Instructions: The procedure you discussed with your doctor is called: SCS TRIAL LUMBAR [facility]. Please make sure this is scheduled with the Fiberglass Pipe Covering Supervisor. Please bring a starting gate driver with you. We may give you medications that make you drowsy or otherw ise unsafe to drive. If you do not have a starting gate driver, we will not be able to do your procedure. DO NOT EAT ANYTHING AFTER MIDNIGHT If your appointment is after 1 PM , you may have a very light, low fat breakfast, such as h long-term a piece of dry toast or a [...] PLEASE CONTACT THE COMPREHENSIVE PAIN CENTER AT [phone]) FOR QUESTIONS OR IF YOU NEED TO CANCEL YOUR APPOINTMENT. [facility] Comprehensive Pain Center documented in this [...] not signed. Given information. DALE CANTU MD [place], [facility] Graining Machine Operator, Pain Medicine Professor, Anesthesiology & Perioperative Medicine ollHomer manriquez MD - 06/06/2012 11:17 AM PDT [facility] Comprehensive Pain Center Return Visit with [...] and a pain drawing which I reviewed. PROBATION WORKER Brief Pain Inventory: (ten= worst possible [...] The Review of Systems obtained by the SOUND EFFECTS SUPERVISOR was reviewed. Additional Review of Systems: Bones, [...] up with Dr. Dale Cantu at the [facility] today for left foot CRPS which [...] therapy Homer Elaine MD Pain Medicine Fellow [facility] Pain [place] Evelia Parsons - 11:07 AM PDTCMA History: [...]
--- OUTSIDE RECORDS SUMMARY | ~2020-05-26 | XMS | Encounter Summary ---
Demographics + + + | Address | [address] | | | [place] [address] | + + + | Home Phone [...] Team Providers + +------+ + | Care Concessions Manager Name | Role | Phone | [...] + | 06/07/ | Telephone | [facility] Ilene | Ilene Bright, | Care Coordination | | 2016 | | Pain Center at | CHANGE MANAGEMENT MANAGER [address] | | | | | [facility] | [place], [place] | | | | | [address] | [address] | | | | | [facility] | [phone] | | | | | and Healing, | | | | | | Building , | | | | | | Floor [place], [place] | | | | | | [address] | | | | | | [phone] | | | +--------+ + + + [...]
--- OUTSIDE RECORDS SUMMARY | ~2020-05-26 | XMS | Encounter Summary ---
Demographics + + + | Address | [address] | | | [place] [address] | + + + | Home Phone [...] Providers + +------+ + | Care Pattern Clerk Name | Role | Phone | + +------+ + | Justo Vazquez MD | PCP | | + +------+ + Encounter Details +--------+ + + + + | Date | Type | Department | Care Team | Description | +--------+ + + + + | 01/09/ | Documentati | Orthopaedics | Ranjeet Amanda, | | | 2018 | on | [facility] at [facility] | [address] | | | | | for Health and | [place], [place] | | | | | Healing [address] | [address] | | | | | Ave [facility] for | [phone] | | | | | Health and Healing, | | | | | | | | | | | | Floor [facility] [place] | | | | | | [address] | | | | | | [phone] | | | +--------+ + + + [...]
--- OUTSIDE RECORDS SUMMARY | ~2020-05-26 | XMS | Encounter Summary ---
Demographics + + + | Address | [address] | | | [place] [address] | + + + | Home Phone [...] Providers + +------+ + | Care Sheet Cutting Operator Name | Role | Phone | [...] | | 2015 | | Center at [facility] [address] Junior Torres MD | Treatment Planning | | | | [address] [place] | | | | | | for Health and | | | | | | [facility], [facility] 2 | | | | | | [place], [place] | | | | | | [address] | | | | | | [phone] | | | +--------+ + + + [...]
--- OUTSIDE RECORDS SUMMARY | ~2020-05-26 | XMS | Encounter Summary ---
Demographics + + + | Address | [address] | | | [place] [address] [...] Providers + +------+ + | Care Office Coordinator Name | Role | Phone [...] | Diagnoses | Beulah | Edu Pt Procurement Inspector | | | | Therapy | CRPS | Janak Martinez MD | [address] [address] | | | | | (complex | [address] | | | | | regional | [address] | Mailcode: | | | | | pain | Mailstop | [facility] | | | | | syndrome), | [id number] | for Health | | | | | lower limb | [place], [place] | and Healing, | | | | | Gait | [address] | Building [address] | | | | | disturbance | Phone: | [place], [place] | | | | | Muscle pain | [phone] | [address] | | | | | Procedures | Fax: | Phone: | | | | | PHYSICAL | [phone] | [phone] | | | | | THERAPY | [...] regional pain | | | | [facility] | [place] [address] | syndrome), lower | | | | [address] | [phone] | limb (Primary Dx) | | | | Center for Health | | | | | | and Healing, | | | | | | Building 1, 1st | | | | | | Floor [place], [place] | | | | | | [address] | | | | | | [phone] | | | +--------+---------+ + + + [...] might be different f rom the original. [id number] BRODY FARAH Date of : 1990 Start of care: 02/14/2012 Date of onset: 02/14/2012 Referring/Attending Practitioner: Janak Riojas MD . Primary/Referral Diagnosis/ICD-9: 355.71B CRPS (complex regional pain syndrome), lower limb Insurance: Payor: [facility] Plan: BCBS OUT OF STATE Product Type: PP O Service period from: 02/14/2012 to: 08/12/2012 Number visits used/authorized: 05/25 [facility] PHYSICAL THERAPY PROGRESS NOTE SUBJECTIVE: [...] status. Guill[facility] Sanon [facility] Outpatient Rehabilitation Services Mailcode: Ch3p [address] [facility], 1st Floor [facility] [address] documented in this encounter Plan of Treatment Not on filedocumented as of this encounter Procedures + +--------+ + + + | Procedure Name | Priori | Date/Time | Associated Diagnosis | Comments | | | ty | | | | + +--------+ + + + | ND MANUAL THER | Routin | 06/09/2012 | CRPS (complex | | | TECH,1+REGIONS,EA 15 | e | 2:46 PM | regional pain | | | MIN | | PDT | syndrome), lower | | | | | | limb | | + +--------+ + + + | ND THERAPEUTIC | Routin | 06/09/2012 | CRPS [...]
--- OUTSIDE RECORDS SUMMARY | ~2020-05-26 | XMS | Encounter Summary ---
Demographics + + + | Address | [address] | | | [place] [address] | + + + | Home Phone [...] Providers + +------+ + | Care Production Line Manager Name | Role | Phone | + +------+ + | Justo Vazquez MD | PCP | | + +------+ + Encounter Details +--------+ + + + + | Date | Type | Department | Care Team | Description | +--------+ + + + + | 12/28/ | Telephone | [facility] | Ilene Bright, | | | 2019 | | Pain Center at | INTERACTIVE MEDIA MARKETING DIRECTOR [address] | | | | | [facility] | [place], [place] | | | | | [address] | [address] | | | | | [place] for [facility] | [phone] | | | | | and Healing, | | | | | | | | | | | | Floor [place], [place] | | | | | | [address] | | | | | | [phone] | | | +--------+ + + + [...]
--- OUTSIDE RECORDS SUMMARY | ~2020-05-26 | XMS | Encounter Summary ---
Demographics + + + | Address | [address] | | | [place] [address] | + + + | Home Phone [...] Providers + +------+ + | Care Seating Captain Name | Role | Phone | + +------+ + | Justo Vazquez MD | PCP | | + +------+ + Encounter Details +--------+ + + + + | Date | Type | Department | Care Team | Description | +--------+ + + + + | 12/05/ | Procedure | [facility] | | | | 2019 | Pass | [place] [facility] | | | | | | and Healing Surgery | | | | | | Center Admitting | | | | | | Desk Located on the | | | | | | 4th floor [address] | | | | | | [address] [place], | | | | | | [place] [address] | | | +--------+ + + + [...]
--- OUTSIDE RECORDS SUMMARY | ~2020-05-26 | XMS | Encounter Summary ---
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 Surgery check-in location: [facility] Day Stay - [place] for Health and [facility], 4th floor Surgery Check in [...] it is after office hours, call the [facility] chief airline radio operator at [phone] and ask them to page him or h er. documented in this encounter Progress Notes Catie Smart NP - 11/27/2018 2:05 PM PST PREOPERATIVE CONSULT NOTE Author: Catie Smart NP Referring Physician: Alex Sanchez MD Primary Care Provider: Justo Vazquez MD Reason for Consult: Preoperative evaluation and risk assessment Proposed Procedure/Date: implant SCS; 12/05/2018 Proposed Procedure Location: [facility] HISTORY OF PRESENT ILLNESS: Tracie [...] renal failure no electrolyte abnormalities no dialysis Urology/Dust Collector Treater: Interstitial cystitis LMP: irreg bleeding, ~11/14/2018, IUD [...] as directed by [facility]- 2 gallon bowel prep polyethylene glycol [...] patient is a lso currently scheduled at [facility] [place] and is meeting inclusion [...] to this patient's care. Catie Smart NP [facility] PBB PREOPERATIVE MEDICINE CLINIC AT [facility] 4TH FLOOR [address] [facility] [address] I advised the patient regarding NPO [...]
--- OUTSIDE RECORDS SUMMARY | ~2020-05-26 | XMS | Encounter Summary ---
Demographics + + + | Address | [address] | | | [place] [address] | + + + | Home Phone [...] Team Providers + +------+ + | Care Filtration Supervisor Name | Role | Phone | [...] + | 12/26/ | Refill | [facility] Comprehensive | Alex Sanchez, | Refill Request | | 2019 | | Pain Center at | ,PhD [address] [facility] | | | | | [facility] | [address] | | | | | [address] | [place], [place] | | | | | [facility] | [address] | | | | | and [place]ina, | [phone] | | | | | [facility] | | | | | | Floor [place], [place] | | | | | | [address] | | | | | | [phone] | | | +--------+--------+ + + + [...]
--- OUTSIDE RECORDS SUMMARY | ~2020-05-26 | XMS | Encounter Summary ---
Demographics + + + | Address | [address] | | | [place] [address] | + + + | Home Phone [...] Team Providers + +------+ + | Care Custom Marine Canvas Fabricator Name | Role | Phone | [...] | | pain | [address] | [place], [place] | | | | | syndrome | [place], [place] | [address] | | | | | type 1 of | [address] | Phone: | | | | | left lower | Phone: | [phone] | | | | | extremity | [phone] | Fax: | | | | | Midline low | Fax: | [phone] | | | | | back pain | [phone] | | | | | | without [...] Ave | | | | | | [place], [place] | [facility] [place] | | | | | | [address] | [address] | | | | | | Phone: | Phone: | | | | | | [phone] | [phone] | | | | | | Fax: | Fax: | | | | | | [phone] | [phone] | +--------+---------+ + + + + Encounter Details +--------+---------+ + + + | Date | Type | Department | Care Team | Description | +--------+---------+ + + + | 07/04/ | Office | [facility] Comprehensive | Lane Reyes, | Complex regional | | 2019 | Visit | Pain Center at | [place] [address] | pain syndrome type 1 | | | | [place] | [place], [place] | of left lower | | | | [address] | [address] | extremity (Primary | | | | Center for [facility] | [phone] | Dx); Midline low | | | | and Healing, | | back pain without | | | | Building | | sciatica, | | | | Floor [place], [place] | | unspecified | | | | [address] | | chronicity; | | | | [phone] | | Sacroiliac pain; | | | [...] and help in coping with the pain. WASTEWATER TREATMENT PLANT SUPERVISOR Brief Pain Inventory: (ten= worst possible [...] Hemroidectomy Trial spinal cord stimulator leads 08/02/2012 [facility], Surgeon: Janak Riojas MD Cholecystectomy Appendectomy Other [...] a light load. Has been working at [employer], can' t work on crApttusches. Has roommates. Allergies Allergen Reactions Morphine Anaphylaxis [...] Take as directed by [facility] Digestive [facility]- 2 gallon bowel prep POLYETHYLENE GLYCOL 3350 17 GRAM/DOSE ORAL POWDER Take 17 g by mouth once daily. PROMETHAZINE 12.5 MG TABLET Take 1 tablet by mouth four times daily as needed for nausea/vo miting. SUCRALFATE 1 GRAM TABLET Take 1 g by mouth four times daily. Radiology/Diagnostic Tests: X-RAY SPINE CERV 4 VIEWS Order: [id number] Performed: 06/12/2018 11:40 Status: Final result Visible [...] the treatment performed by the chiropractic international trade teacher, Niesha Reveles, was directly observed by myself the primary chiropractor Lane Reyes [place] Visit Diagnoses: ICD-10-CM 1. Complex regional pain syndrome type 1 of left lower extremity G90.522 CONSULT TO PAIN [facility] 2. Midline low back pain without sciatica, unspecified chronicity M54.5 CONSULT TO [facility] 3. Sacroiliac pain M53.3 CONSULT TO PAIN MANAGEMENT IA CHIROPRAC MANIP,SPINAL,1-2 REGIONS 4. Sacral dysfunction M53.3 IA CHIROPRAC MANIP,SPINAL,1-2 REGIONS 5. Somatic dysfunction of pelvis region M99.05 IA CHIROPRAC MANIP,SPINAL,1-2 REGIONS 6. Somatic dysfunction of sacral region M99.04 IA CHIROPRAC MANIP,SPINAL,1-2 REGIONS Impression: Tracie Farah is [...] the above note written by Chiropractic international trade teacher of our visit wit h this patient as recorded by Lane Reyes [place] [facility] PAIN CENTER AT [address] Mail Code: Ch15[place] [address] documented in this e ncounter Plan of Treatment Not on filedocumented as of this encounter Procedures + +--------+ + + + | Procedure Name | Priori | Date/Time | Associated Diagnosis | Comments | | | ty | | | | + +--------+ + + + | IA CHIROPRAC | Routin | 07/10/2019 | Sacroiliac [...]
--- OUTSIDE RECORDS SUMMARY | ~2020-05-26 | XMS | Encounter Summary ---
Demographics + + + | Address | [address] | | | [place] [address] | + + + | Home Phone [...] Team Providers + +------+ + | Care Designer Writer Name | Role | Phone | [...] | | Pain Center at | ,PhD [address] | denied) | | | | [facility] | [facility] | | | | | [address] | [place], [place] | | | | | [facility] | [address] | | | | | and [place], | [phone] | | | | | [facility] | | | | | | Floor [place], [place] | | | | | | [address] | | | | | | [phone] | | | +--------+ + + + [...]
--- OUTSIDE RECORDS SUMMARY | ~2020-05-26 | XMS | Encounter Summary ---
Demographics + + + | Address | [address] | | | [place] [address] | + + + | Home Phone [...] Providers + +------+ + | Care Communications Coordinator Name | Role | Phone | [...] Se [facility] | [facility] [address] | mail script to | | | | [address] | [place], [place] | patient) | | | | [facility] | [address] | | | | | and Healing, | [phone] | | | | | | | | | | | Floor [place], [place] | | | | | | [address] | | | | | | [phone] | | | +--------+ + + + [...]
--- OUTSIDE RECORDS SUMMARY | ~2020-05-26 | XMS | Encounter Summary ---
Demographics + + + | Address | [address] | | | [place] [address] | + + + | Home Phone [...] Team Providers + +------+ + | Care Recovery Specialist Name | Role | Phone [...] + + | 03// | Telephone | [facility] Comprehensive | Alex Sanchez, | Medication (clarify | | 2018 | | Pain Center at | ,PhD [address] | sig on Ketamine) | | | | [facility] | [facility] | | | | | [address] | [place], [place] | | | | | [facility] | [address] | | | | | and Healing, | [phone] | | | | | Building | | | | | | Floor [place], [place] | | | | | | [address] | | | | | | [phone] | | | +--------+ + + + [...]
--- OUTSIDE RECORDS SUMMARY | ~2020-05-26 | XMS | Encounter Summary ---
Demographics + + + | Address | [address] | | | [place] [address] | + + + | Home Phone [...] Team Providers + +------+ + | Care Ice Carver Name | Role | Phone | + [...] STAY [address] | ,PhD [address] [facility] | | | | | Courtney Mailcode: [facility] | [address] | | | | | [facility] | [place], [place] | | | | | Health and [facility], | [address] | | | | | [place] [address] | [phone] | | | | | [place], [place] | | | | | | [address] | | | | | | [phone] | | | +--------+ + + + [...] s/p successful DRG trial lead system with [employer] on 09/25/2018. No changes in H&P, [...] OPERATIVE NOTE Date: December 05, 2018 Location: [facility] [place] | | | Tracie Farah [id number] :1990, presents to clinic | | | for: Dorsal root ganglion stimulator implant PROCEDURE: Dorsal | | | root ganglion stimulator implant PRE-OPERATIVE DIAGNOSIS: Complex | | | regional Pain syndrome type 1 of left lower extremity | | | POST-OPERATIVE DIAGNOSIS: Complex regional Pain syndrome type 1 of | | | left lower extremity ATTENDING PHYSICIAN: Alex Sanchez | | | REVENUE AGENT: Arben Valerio MD ANESTHESIA: sedation by IVIS Cole | | | Carmen, supervised by project scheduler Ilir Valdes. | | | FINDINGS: Appropriate [...] sedation. Ms. Farah was escorted to the [facility] | | | [place], where [...] to the | | | [employer] civil rights representative. A test stimulation was performed and [...] recovery. Images were saved, and sent to [employer] [facility]. | | | Alex Sanchez (attending) was present for the entire procedure. | | | Arben Valerio MD I was present for the entire procedure | | | (spinal cord stimulator implantation with DRG leads at left L4 and | | | L5) and all bocanegra elements of this visit. I reviewed the | | | documentation of the other REPORT MANAGER providers and concur with Dr. | | | Iman's findings. I edited his note. Alex Sanchez, | | | ,PhD Extended Day Teacher Anesthesiology and Pain Management | | | [facility] [...] + + | JOSE ANTONIO MIN | [address] | [place] [address] | | | OF CARE TESTS | [...]
--- OUTSIDE RECORDS SUMMARY | ~2020-05-26 | XMS | Encounter Summary ---
Demographics + + + | Address | [address] | | | [place] [address] | + + + | Home Phone [...] Team Providers + +------+ + | Care Trading Specialist Name | Role | Phone | [...] | | | [address] | [facility] | | | | | [place], [place] | [place], [place] | | | | | [address] | [address] | | | | | | [phone] | | | | | | | [...] | + +--------+ + + + | PROSTHETIC AIDE MISC PROCEDURE | Routin | 12/27/2017 | Complex regional | Results for this | | | e | 3:28 PM | pain syndrome type 1 | procedure are in the | | | | PST | of left lower | results section. | | | | | extremity | | + +--------+ + + + documented in this encounter Results [facility] MISC PROCEDURE (12/27/2017 3:28 PM PST) [...]
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
--- OUTSIDE RECORDS SUMMARY | ~2020-05-26 | XMS | Encounter Summary ---
Demographics + + + | Address | [address] | | | [place] [address] | + + + | Home Phone [...] Team Providers + +------+ + | Care Time Cycle Operator Name | Role | Phone | [...] 2019 | | Pain Center at | STREET SWEEPER [address] | | | | | [facility] | [place], [place] | | | | | [address] | [address] | | | | | [place] for [facility] | [phone] | | | | | and Healing, | | | | | | | | | | | | Floor [place], [place] | | | | | | [address] | | | | | | [phone] | | | +--------+ + + + [...]
--- OUTSIDE RECORDS SUMMARY | ~2020-05-26 | XMS | Clinical Summary ---
Demographics + + + | Address | [address] | | | [place] [address] | + + + | Home Phone [...] | Author | [facility] | + + + | Organization | [facility] | + + + | Address | Unknown | + + + | Phone | Unavailable | + + + Support + + +---------+ + | Name | Relationship | Address | Phone | + + +---------+ + | Patricia Colin | ECON | Unknown | | + + +---------+ + Care Team Providers + +------+ + | Care Payroll Secretary Name | Role | Phone | + +------+ + | Justo Vazquez MD | PCP | | + +------+ + Source Comments KEVIN is fully live on both [facility] Ambulatory and [facility] InPatient.[facility] Allergies [...] Noted Date | + + + | [facility] PATIENT (PETER) - Implanted Spinal Cord | 12/14/2018 | | Stimulator | | + + + + + | Overview: Patient has an implanted RACTIV spinal | | cord stimulator. Model#: [id number]. Contact [phone] for | | technical assistance.Contraindications:Sources of strong [...] | Right: | BARD | | | [id number] | | Port-10/05/2016Implanted: | | Chest | | | | 0 / | | 10/05/2016 by Obdulio Simpson, | | | | | | /VIKY | | (Quantity not on file) | | | | | | 204 | + +------+--------+ +--------+--------+--------+ + + | Description:Not Power | | Injectable, Progress record | | faxed from [facility] | | Hospital in [place], [place], | | [facility] RN | + + + +---+---+ +---+--------+--------+ | Slimtip DrgImplanted: Qty: 1 | | | ST [facility]ICA | | 01/06/ | [id number] | | on 12/05/2018 by Daniel, | | | MEDICAL SC | | 2020 | 0-50A | | Alex Alba MD,PhD at [facility] | | | | | | /[id number] | | INPATIENT REV LOC | | | | | | 371 / | + +---+---+ +---+--------+--------+ + + | Description:Level 4 | + + + +---+---+ +---+---+--------+ | Slimtip DrgImplanted: Qty: 1 | | | ST [facility] | | | [id number] | | on 12/05/2018 by Daniel, | | | MEDICAL SC | | | 0-50A | | Alex Alba MD,PhD at [facility] | | | | | | /[id number] | | INPATIENT REV LOC | | [...] / | | Alex Alba MD,PhD at [facility] | | | | | | | [...] | | | | | | | [address] | | + +--------+ +--------+ + +--------+ | [employer] MEDICA[employer] | W[employer]UR[employer] E[employer]ICAL ENGINEER | [id number] | 11/14/19 | | [...] | 1990 | [phone] | [place] [address] | | | evita | | | [...]
--- OUTSIDE RECORDS SUMMARY | ~2020-05-26 | XMS | Encounter Summary ---
Demographics + + + | Address | [address] | | | [place] [address] | + + + | Home Phone [...] Team Providers + +------+ + | Care Osteopathic Physician Name | Role | Phone | [...] 2016 | | Center at [facility] [address] | MD Melissa | | | | | [address] | | | | | | for Health and | | | | | | Healing, Building [address] | | | | | | [place], [place] | | | | | | [address] | | | | | | [phone] | | | +--------+ + + + [...]
--- OUTSIDE RECORDS SUMMARY | ~2020-05-26 | XMS | Encounter Summary ---
Demographics + + + | Address | [address] | | | [place] [address] | + + + | Home Phone [...] Providers + +------+ + | Care Classroom Coordinator Name | Role | Phone | [...] Medical Records | | 2017 | | [facility] [address] | MD Melissa | Review | | | | [address] [facility] | | | | | | for Health and | | | | | | [facility] | | | | | | [place], [place] | | | | | | [address] | | | | | | [phone] | | | +--------+ + + + [...]
--- OUTSIDE RECORDS SUMMARY | ~2020-05-26 | XMS | Encounter Summary ---
Demographics + + + | Address | [address] | | | [place] [address] | + + + | Home Phone [...] Providers + +------+ + | Care Ticket Writer Name | Role | Phone | [...] | | | [address] [facility] | | | | | | for Health and | | | | | | Healing, Building 2 | | | | | | [place], [place] | | | | | | [address] | | | | | | [phone] | | | +--------+ + + + [...]
--- OUTSIDE RECORDS SUMMARY | ~2020-05-26 | XMS | Encounter Summary ---
Demographics + + + | Address | [address] | | | [place] [address] | + + + | Home Phone [...] Providers + +------+ + | Care Visual Inspector Name | Role | Phone | [...] + + | 12/05/ | Surgery | [facility] | Alex Sanchez, | BILATERAL DORSAL | | 2019 | | Center for Health | ,PhD [address] [facility] | ROOT GANGLION SPINAL | | | | and Healing Surgery | [address] | CORD STIMULATOR | | | | Center Admitting | [place], [place] | IMPLANT LUMBAR; | | | | Desk Located on the | [address] | POSTERIOR | | | | 4th floor [address] | [phone] | | | | | [address] [place], | | | | | | [place] [address] | | | +--------+---------+ + + + [...] s/p successful DRG trial lead system with [employer] System on 09/25/2018. No changes in H&P, [...] OPERATIVE NOTE Date: December 05, 2018 Location: [facility] [place] | | | Tracie Farah [id number] :1990, presents to clinic | | | for: Dorsal root ganglion stimulator implant PROCEDURE: Dorsal | | | root ganglion stimulator implant PRE-OPERATIVE DIAGNOSIS: Complex | | | regional Pain syndrome type 1 of left lower extremity | | | POST-OPERATIVE DIAGNOSIS: Complex regional Pain syndrome type 1 of | | | left lower extremity ATTENDING PHYSICIAN: Alex Sanchez | | | LICENSED DISPENSING OPTICIAN: Arben Valeroi MD ANESTHESIA: sedation by IVIS Cole | | | Carmen, supervised by looseleaf binder coverer Ilir Valdes. | | | FINDINGS: Appropriate [...] sedation. Ms. Farah was escorted to the [facility] | | | [place], where she [...] to the | | | [employer] client account representative. A test stimulation was performed [...] recovery. Images were saved, and sent to [employer] | | | Alex Sanchez (attending) was present for the entire procedure. | | | Arben Valerio MD I was present for the entire procedure | | | (spinal cord stimulator implantation with DRG leads at left L4 and | | | L5) and all bocanegra elements of this visit. I reviewed the | | | documentation of the other CULTURE MANAGER providers and concur with | | | Iman's findings. I edited his note. Alex Sanchez, | | | ,PhD Field Contractor Anesthesiology and Pain Management | | | [facility] | | + + + HCG [...] + | JOSE ANTONIO MIN | [address] [facility] | [place] [address] | | | OF CARE TESTS | [...]
--- OUTSIDE RECORDS SUMMARY | ~2020-05-26 | XMS | Encounter Summary ---
Demographics + + + | Address | [address] | | | [place] [address] | + + + | Home Phone [...] Providers + +------+ + | Care Salesperson Pianos And Organs Name | Role | Phone | + +------+ + | Justo Vazquez MD | PCP | | + +------+ + Encounter Details +--------+ + + + + | Date | Type | Department | Care Team | Description | +--------+ + + + + | 12/07/ | Pharmacy | [facility] | | | | 2019 | Visit | [facility] | | | | | | [address] | | | | | | Mailcode: [place] | | | | | | [facility] Health and | | | | | | Healing, Building [address] | | | | | | [place], [place] | | | | | | [address] | | | | | | [phone] | | | +--------+ + + + [...]
--- OUTSIDE RECORDS SUMMARY | ~2020-05-26 | XMS | Encounter Summary ---
Demographics + + + | Address | [address] | | | [place] [address] | + + + | Home Phone [...] + +------+ + | Care A P Supervisor Name | Role | Phone | [...] + + | 09/14/ | Telephone | [facility] | Alex Sanchez, | Education procedure | | 2018 | | Pain Center at | ,PhD [address] | (preprocedure | | | | [facility] | [address] | education [facility]) | | | | [address] | [place], [place] | | | | | [facility] | [address] | | | | | and Healing, | [phone] | | | | | | | | | | | Floor [place], [place] | | | | | | [address] | | | | | | [phone] | | | +--------+ + + + [...]
--- OUTSIDE RECORDS SUMMARY | ~2020-05-26 | XMS | Encounter Summary ---
Demographics + + + | Address | [address] | | | [place] [address] | + + + | Home Phone [...] Team Providers + +------+ + | Care Refuse And Recycling Worker Name | Role | Phone | [...] JAYDEN Shane | | | | | [facility] | [facility], | | | | | [address] | [place] [address] | | | | | [facility] | [phone] | | | | | and Healing, | | | | | | Building | | | | | | [place], [place] | | | | | | [address] | | | | | | [phone] | | | +--------+ + + + [...]
--- OUTSIDE RECORDS SUMMARY | ~2020-05-26 | XMS | Encounter Summary ---
Demographics + + + | Address | [address] | | | [place] [address] | + + + | Home Phone [...] Team Providers + +------+ + | Care Bias Binding Folder Name | Role | Phone | [...] + + | 10/06/ | Telephone | [facility] | Yosef Kenney MD | Dermatitis | | 2018 | | Pain Center at | [address] | | | | | [facility] | [facility] | | | | | [address] | [place] [address] | | | | | [facility] | [phone] | | | | | and Healing, | | | | | | [facility] | | | | | | [place], [place] | | | | | | [address] | | | | | | [phone] | | | +--------+ + + + [...]
--- OUTSIDE RECORDS SUMMARY | ~2020-05-26 | XMS | Encounter Summary ---
Demographics + + + | Address | [address] | | | [place] [address] | + + + | Home Phone [...] Providers + +------+ + | Care Associate Dean Of Women Name | Role | Phone | + [...] Rd | | | | | | [place], [place] | | | | | | [address] | | | +--------+ + + + [...]
--- OUTSIDE RECORDS SUMMARY | ~2020-05-26 | XMS | Encounter Summary ---
Demographics + + + | Address | [address] | | | [place] [address] | + + + | Home Phone [...] Providers + +------+ + | Care Crop Duster Name | Role | Phone | + +------+ + | Justo Vazquez MD | PCP | | + +------+ + Encounter Details +--------+ + + + + | Date | Type | Department | Care Team | Description | +--------+ + + + + | 05/12/ | MyChart | Pain Center at [facility] | Ewa Melchor, | RE: Schedule change | | 2017 | Encounter | [address] | [place] [address] | | | | | [place] for [facility] | [address] | | | | | and Healing, | [place] [address] | | | | | | [phone] | | | | | Floor [place], [place] | | | | | | [address] | | | | | | [phone] | | | +--------+ + + + [...]
--- OUTSIDE RECORDS SUMMARY | ~2020-05-26 | XMS | Encounter Summary ---
Demographics + + + | Address | [address] | | | [place] [address] | + + + | Home Phone [...] Providers + +------+ + | Care Kitchen Food Server Name | Role | Phone | + +------+ + | Justo Vazquez MD | PCP | | + +------+ + Encounter Details +--------+ + + + + | Date | Type | Department | Care Team | Description | +--------+ + + + + | 12/07/ | Telephone | [facility] | Alex Sanchez, | | | 2019 | | Pain Center at | ,PhD [address] | | | | | [facility] | [address] | | | | | [address] | [place], [place] | | | | | [place] for [facility] | [address] | | | | | and Healing, | [phone] | | | | | | | | | | | Floor [place], [place] | | | | | | [address] | | | | | | [phone] | | | +--------+ + + + [...]
--- OUTSIDE RECORDS SUMMARY | ~2020-05-26 | XMS | Encounter Summary ---
Demographics + + + | Address | [address] | | | [place] [address] | + + + | Home Phone [...] Team Providers + +------+ + | Care Kst Operator Name | Role | Phone | [...] | Pain Center at | [address] | | | | | [facility] | [address] [id number] | | | | | [address] | [place], [place] | | | | | Center for Health | [address] | | | | | and Healing, | [phone] | | | | | [facility] | | | | | | Floor [place], [place] | | | | | | [address] | | | | | | [phone] | | | +--------+ + + + [...]
--- OUTSIDE RECORDS SUMMARY | ~2020-05-26 | XMS | Encounter Summary ---
Demographics + + + | Address | [address] | | | [place] [address] | + + + | Home Phone [...] Team Providers + +------+ + | Care Focuser Name | Role | Phone | + [...] | | | regional | [place] | [address] | | | | | pain | FAMILY | [place] | | | | | syndrome), | MEDICINE P | [id number] | | | | | lower limb | [address] | [place], [place] | | | | | Pain in | [place], | [address] | | | | | joint, lower | [place] [address] | Phone: | | | | | leg | Phone: | [phone] | | | | | Procedures | [phone] | Fax: | | | | | REQUEST TO | Fax: | [phone] | | | | | SURGERY | [phone] | | | | | | CLINICAL APPEALS SPECIALIST | | | +--------+--------+ + + + + Encounter Details +--------+ + + + + | Date | Type | Department | Care Team | Description | +--------+ + + + + | 08/02/ | Procedure | Pain Center at [facility] | Dale Cantu, | Procedure; | | 2011 | | [address] | [address] | Injection; Procedure | | | | [facility] | [facility] [id number] | | | | | and Healing, | [place], [place] | | | | | [facility] | [address] | | | | | Floor [place], [place] | [phone] | | | | | [address] | | | | | | [phone] | | | +--------+ + + + [...] e might be different from the original. [facility] Center Patient Instructions - Post Spinal Cord Stimulator Trial Date: 08/02/2012 Name: Tracie Farah Date of : 1990 Procedure Performed: SCS TRIAL LUMBAR [facility] Procedure Provider: Dale Cantu [facility] Procedure Rm If you have any problems you believe are associated with your procedure tonight, Please call the Hospital Beating Machine Operator, and ask for the Pain [...] call for concerns about SCS function. During [facility] open hours, call the [facility] ([phone]), after hours call the stroboroma operator at [facility] ([phone]) and ask for t he Adult Pain Service line installation supervisor. Identify yourself as a Comprehensive Pain [...] the wounds, dressing, or SCS function. During CORE BLOWER OPERATOR o pen hours, call the CORE BLOWER OPERATOR ([phone]), after hours call the stroboroma operator at [facility] ([phone] ) and ask for the Adult Pain Service line installation supervisor. Identify yourself as my patient with a concer n about postoperative recovery. If there are concerns about the SCS programming, contact t he personal banking representative from the SCS side stapler. If the stimulation is not covering your area o f pain, your SCS should be reprogrammed. Do not take any blood thinning medications during the trial. Instructions printed and reviewed with the patient. Copy of instructions given to Ms. Nemo renee. DALE CANTU MD [facility] Pain Center documented in this encounter [...] and postoperative care instructions. DALE CANTU MD Consulting Systems Engineer, [facility] Customer Project Manager, Pain Medicine Professor, Anesthesiology & Perioperative Medicine Diana Arroyo RN - 08/02/2012 7:34 AM PDT PRE-SEDATION: Date: August 02, 2012 Tracie Farah [id number] 1990 ALLERGIES: Morphine Previous reaction to Sedation/Analgesia: MEDICATIONS: Current Outpatient Prescriptions Medication HYDROcodone-acetaminophen (NORCO) 10-325 mg Oral Tablet KETOROLAC TROMETHAMINE (TORADOL IM) levonorgestrel (MIRENA) 20 mcg/24 hr Intrauterine IUD LORazepam 1 mg Oral Tablet ondansetron (ZOFRAN) 8 mg Oral Tablet promethazine 25 mg Oral Tablet Meets NPO Guidelines. IV ACCESS: IV in Place IV Site [facility] 22 g @ 0655 BASELINE VS: See Sedation Flow Sheet. Tracie Donaldson [facility] [id number] 1990, presents to clinic for: Procedure: Spinal [...] 0732 - 0733: Midazolam 2 [place] [address]: Fentanyl 25 mcg IV 0740 - 0741: Midazolam 2 mg IV 0742: Procedure started 0743 - 0744: Fentanyl 50 mcg IV 0753-54: Fentanyl 25 mcg IV Lead # 1 placed Lead # 2 placed 0801: Stimulation started. 0829: Pt reports stimulation to usual areas of pain. Leads secured. 0845: Pt returned to [facility] in stable condition. IV dc'd. Evelia Parsons [...] OPERATIVE NOTE Date: August 02, 2012 Location: [facility] Procedure Room Tracie Farah [id number] :1990, presents to clinic for: PROCEDURE: Spinal Cord Stimuation Trial LEVEL/LATERALITY: midline lumbar PRE-OPERATIVE DIAGNOSIS: 355.71B CRPS (complex regional pain syndrome), lower limb 719.46 Pain in joint, lower leg 781.2Q Gait disturbance POST-OPERATIVE DIAGNOSIS: 355.71B CRPS (complex regional pain syndrome), lower limb 719.46 Pain in joint, lower leg 781.2Q Gait disturbance ATTENDING PHYSICIAN: Dale Cantu MD WORKERS' COMPENSATION CLAIMS SUPERVISOR: Fellow Bear Yost DO ANESTHESIA: sedation delivered [...] escorted to the [facility] Procedure Ro om, where she was positioned Prone on the examination table. TEAM PAUSE: The physician-led pause was conducted, and is documented in the Nursing note. Monitors were placed, including ECG, NIBP and SpO2. The skin was prepared with Chloroprep and sterile drapes were applied. [employer] system was used for this procedure. The company personal banking representative was theresa knutson for the procedure. [...] Ms. Farah was transported to the [facility] Comprehensive Pain Center post-procedure recovery area where she made an uneventful recovery. Images were saved, and sent to [employer]. Ms. Farah will have her next [...] about wound healing or SCS function. During [facility] open hours, call the [facility] [phone]), after h ours call the stroboroma operator at [facility] ([phone]) and ask for the Adult Pain Service line installation supervisor. Identify yourself as my patient with [...] + +--------+ + + + | VT PERCUT IMPLNT | Routin | 08/03/2012 | [...]
--- OUTSIDE RECORDS SUMMARY | ~2020-05-26 | XMS | Encounter Summary ---
Demographics + + + | Address | [address] | | | [place] [address] | + + + | Home Phone [...] Providers + +------+ + | Care Auto Travel Counselor Name | Role | Phone | [...] | | 2015 | | Center at [facility] [address] | MD Melissa | | | | | [address] [facility] | | | | | | for Health and | | | | | | [facility], Building 2 | | | | | | [place], [place] | | | | | | [address] | | | | | | [phone] | | | +--------+ + + + [...]
--- OUTSIDE RECORDS SUMMARY | ~2020-05-26 | XMS | Encounter Summary ---
Demographics + + + | Address | [address] | | | [place] [address] | + + + | Home Phone [...] Providers + +------+ + | Care Education Specialist Name | Role | Phone | [...] | | syndrome | [place] | [facility] | | | | | type 1 of | Rd | Rd [place], | | | | | left lower | [place], [place] | [place] | | | | | extremity | [address] | [address] | | | | | Procedures | Phone: | Phone: | | | | | REQUEST TO | [phone] | [phone] | | | | | SURGERY | Fax: | Fax: | | | | | RACING SECRETARY AND HANDICAPPER | [phone] | [phone] | +--------+---------+ + + + + Encounter Details +--------+---------+ + + + | Date | Type | Department | Care Team | Description | +--------+---------+ + + + | 12/07/ | Office | [facility] Comprehensive | Eulogio | Complex regional | | 2019 | Visit | Pain Center at | MD Irene [address] | pain syndrome type 1 | | | | [facility] | [address] [place], | of left lower | | | | [address] | [place] [address] | extremity (Primary | | | | [facility] | [phone] | Dx); S/P insertion | | | | and Healing, | | of spinal cord | | | | Building , | | stimulator | | | | Floor [place], [place] | | | | | | [address] | | | | | | [phone] | | | +--------+---------+ + + + [...] Lujan MD - 12/07/2018 9:10 AM PST [facility] Center Return Visit Date: 12/07/2018 Chief Complaint Patient presents with Back pain Pain in left leg History of Present Illness: Tracie Farah is a 28 year old female, whose last appoi ntment at the [facility] was December 05, 2018, for a procedure [...] her 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 QUALITY ASSURANCE ENGINEER Brief Pain Inventory: (ten= worst possible [...] Hemroidectomy Trial spinal cord stimulator leads 08/02/2012 [facility], Surgeon: Janak Riojas MD [...] History Social History Narrative Single. Goes to [employer] with a light load. Has been working at [employer], can' t work on [employer]. Has roommates. Allergies Allergen Reactions Morphine Anaphylaxis [...] and summary of old medical records (source: [employer]), as summarized in the body of the [...] present for the encounter. Irene Krishnan MD [facility] COMPREHENSIVE PAIN [facility] AT [place] [id number] [facility], 4th Floor Mail Code: [address] [phone] documented in thi s encounter Plan of Treatment Not on filedocumented as of this encounter Visit Diagnoses + + | Diagnosis | + + | Complex regional pain syndrome type 1 of left lower extremity - Primary | + + | S/P insertion of spinal cord stimulator | + + documented in this encounter
--- OUTSIDE RECORDS SUMMARY | ~2020-05-26 | XMS | Encounter Summary ---
Demographics + + + | Address | [address] | | | [place] [address] | + + + | Home Phone [...] Providers + +------+ + | Care Construction Site Manager Name | Role | Phone | [...] | | | | [address] [place] | [facility] [place] | | | | | for Health and | [address] | | | | | Healing, Building [address] | [phone] | | | | | [place], [place] | | | | | | [address] | | | | | | [phone] | | | +--------+ + + + [...]
--- OUTSIDE RECORDS SUMMARY | ~2020-05-26 | XMS | Encounter Summary ---
Demographics + + + | Address | [address] | | | [place] [address] | + + + | Home Phone [...] Providers + +------+ + | Care Grave Digger Name | Role | Phone | + [...] | Center at [facility] [address] | [address] | | | | | [address] | [facility] [place] | | | | | for Health and | [address] | | | | | Healing, Building [address] | [phone] | | | | | [place], [place] | | | | | | [address] | | | | | | [phone] | | | +--------+ + + + [...]
--- OUTSIDE RECORDS SUMMARY | ~2020-05-26 | XMS | Encounter Summary ---
Demographics + + + | Address | [address] | | | [place] [address] | + + + | Home Phone [...] Team Providers + +------+ + | Care Audiovisual Technician Name | Role | Phone | [...] on | Pain Center at | [address] | evaluation (No | | | | [facility] | [facility] [id number] | evidence of drug | | | | [address] | [place], [place] | abuse) | | | | [facility] | [address] | | | | | and Healing, | [phone] | | | | | [facility] | | | | | | Floor [place], [place] | | | | | | [address] | | | | | | [phone] | | | +--------+ + + + [...]
--- OUTSIDE RECORDS SUMMARY | ~2020-05-26 | XMS | Encounter Summary ---
Demographics + + + | Address | [address] | | | [place] [address] | + + + | Home Phone [...] Providers + +------+ + | Care Restaurant Service Manager Name | Role | Phone | + +------+ + | Justo Vazquez MD | PCP | | + +------+ + Encounter Details +--------+ + + + + | Date | Type | Department | Care Team | Description | +--------+ + + + + | 12/27/ | Ancillary | [facility] | Alex Sanchez, | | | 2018 | Orders | Pain Center at | ,PhD [address] | | | | | [facility] | [address] | | | | | [address] | [place], [place] | | | | | [place] [facility] | [address] | | | | | and Healing, | [phone] | | | | | | | | | | | Floor [place], [place] | | | | | | [address] | | | | | | [phone] | | | +--------+ + + + [...]
--- OUTSIDE RECORDS SUMMARY | ~2020-05-26 | XMS | Encounter Summary ---
Demographics + + + | Address | [address] | | | [place] [address] | + + + | Home Phone [...] Team Providers + +------+ + | Care Grout Machine Operator Name | Role | Phone [...] Pain Medicine | Diagnoses | Chasity | Sign Wirer Chh1 | | | | / Pain | Abdominal | MD Kenny | [address] | | | | Management | pain, | [address] | [facility] | | | | | unspecified | [facility] | for Health | | | | | location | Rd | and Healing, | | | | | Procedures | [place], [place] | Building | | | | | CONSULT TO | [address] | 1,15th Floor | | | | | PAIN | | [place], [place] | | | | | MANAGEMENT | | [address] | | | | | | | Phone: | | | | | | | [phone] | | | | | | | Fax: | | | | | | | [phone] | +--------+--------+ + + + + Encounter Details +--------+---------+ + + + | Date | Type | Department | Care Team | Description | +--------+---------+ + + + | 07/11/ | Office | [facility] Comprehensive | Ilene Bright, | Pain of upper | | 2017 | Visit | Pain Center at | CALL BOX WIRER [address] | abdomen (Primary | | | | [place] | [place], [place] | Dx); Intractable | | | | [address] | [address] | cyclical vomiting | | | | [place] [facility] | [phone] | with nausea; | | | | and Healing, | | Irritable bowel | | | | Building | | syndrome with | | | | Floor [place], [place] | | constipation; | | | | [address] | | Complex regional | | | | [phone] | | pain syndrome type 1 | [...] and determine next steps. Ilene Childs DNP, CALL BOX WIRER-C Adult Pain Service /[facility] Pain Center [address] [place] [address] documented in this encounter Progress Notes Ilene rBight FNP - 07/11/2017 1:35 PM PDTFormatting of this note might be different fr om the original. [facility] Pain Center Return Visit Date: 07/11/2017 [...] [facility] the [facility]. She has also changed her [...] her abdominal pain an d associated symptoms. [facility] QUESTIONNAIRE BRIEF PAIN 07/11/2017 Please rate [...] has interfered with your sleep : 5 RN ENTEROSTOMAL Questionnaire Follow-up Patient 07/11/2017 Please describe the [...] History Social History Narrative Single. Goes to [employer] with a light load. Has been working at [employer], can' t work on [employer]. Has roommates. Allergies Allergen Reactions Morphine [...] by physician. Concentration is 150mg/mL. Compounded by [facility] ) LAMOTRIGINE 200 MG TABLET Take [...] and summary of old medical records (source: [employer]), as summarized in the body of [...] Shantel Salinas, am functioning as a medical office technician for TERESA Clark DNP-C I have reviewed and verified the above scribed note of my visit with this patient as record ed by Shantel Salinas. Ilene Childs DNP, TERESA-C Adult Pain Service /[facility] [address] [place] [address] Addendum: I paged Dr. Les Gaspar. He was out of the clinic, I spoke with the covering provider and sha dandre Tracie's request for food allergy testing. Since Tracie thinks her pain and vomiting may b e triggered by gluten, covering provided ordered appropriate workup, which I communicated to Tracie and the the lab in [place], [place]. She will followup with me and GI once these results are available. Ilene Childs DNP, CALL BOX WIRER-C Adult Pain Service /[facility] [address] [place] [address] documented in this e ncounter Plan of [...]
--- OUTSIDE RECORDS SUMMARY | ~2020-05-26 | XMS | Encounter Summary ---
Demographics + + + | Address | [address] | | | [place] [address] | + + + | Home Phone [...] Providers + +------+ + | Care Engineer Gas Pumping Station Name | Role | Phone | + [...] | | | | | unspecified | [facility] | [address] | | | | | location | Rd | [facility] | | | | | Procedures | [place], [place] | Rd [place], | | | | | CONSULT TO | [address] | [place] | | | | | PAIN | | [address] | | | | | MANAGEMENT | | Phone: | | | | | | | [phone] | | | | | | | Fax: | | | | | | | [phone] | +--------+--------+ + + + + Encounter Details +--------+---------+ + + + | Date | Type | Department | Care Team | Description | +--------+---------+ + + + | 05/08/ | Office | [facility] Comprehensive | Alex Sanchez, | Complex regional | | 2018 | Visit | Pain Center at | ,PhD [address] | pain syndrome type 1 | | | | [place] | [facility] [address] | of left lower | | | | [address] | [place], [place] | extremity (Primary | | | | Center for Health | [address] | Dx); Pain of upper | | | | and Healing, | [phone] | abdomen; Intractable | | | | | | cyclical vomiting | | | | Floor [place], [place] | | with nausea; | | | | [address] | | Disturbance in sleep | | | | [phone] | | behavior; Abdominal | | | [...] MD,P hD - 05/08/2018 10:30 AM PDT [facility] Comprehensive Pain Center Return Visit Date: 05/08/2018 Chief Complaint Patient presents with Ankle pain Left Foot pain Left History of Present Illness: Tracie Farah is a 27 year old female, whose last appoi ntment at the [facility] was April 19, 2018, for [...] time that 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 Goes to [employer] with a light load. Has been working at [employer] can' t work on [employer]. Has roommates. Allergies Allergen Reactions Morphine Anaphylaxis [...] by physician. Concentration is 150mg/mL. Compounded by [employer] ) KETOROLAC IM Inject into the muscle [...] and summary of old medical records (source: [employer]), as summarized in the body of the [...] by Sonia Key. Alex Sanchez MD PhD Door Builder Anesthesiology and Pain Management [facility] documented in [...]
--- OUTSIDE RECORDS SUMMARY | ~2020-05-26 | XMS | Encounter Summary ---
Demographics + + + | Address | [address] | | | [place] [address] | + + + | Home Phone [...] + +------+ + | Care Dean Of Graduate Studies Name | Role | Phone | [...] + + | 10/07/ | Telephone | [facility] Comprehensive | Yosef Kenney MD | Wound infection | | 2018 | | Pain Center at | [address] | (Concern for DRG | | | | [facility] | [address] [place], | trial wound | | | | [address] | [place] [address] | infection) | | | | [place] for Health | [phone] | | | | | and Healing, | | | | | | | | | | | | [place], [place] | | | | | | [address] | | | | | | [phone] | | | +--------+ + + + [...]
--- OUTSIDE RECORDS SUMMARY | ~2020-05-26 | XMS | Encounter Summary ---
Demographics + + + | Address | [address] | | | [place] [address] | + + + | Home Phone [...] Team Providers + +------+ + | Care Unix Architect Name | Role | Phone | [...] | | | regional | [place] | [address] | | | | | pain | FAMILY | [address] | | | | | syndrome), | MEDICINE P | [address] | | | | | lower limb | [address] | [place], [place] | | | | | Gait | [place], | [address] | | | | | disturbance | [place] [address] | Phone: | | | | | Muscle pain | Phone: | [phone] | | | | | Procedures | [phone] | Fax: | | | | | REQUEST TO | Fax: | [phone] | | | | | SURGERY | [phone] | | | | | | WORK FORCE ADVISOR | | | +--------+--------+ + + + + Encounter Details +--------+ + + + + | Date | Type | Department | Care Team | Description | +--------+ + + + + | 03/01/ | Procedure | Pain Center at [facility] | Dale Cantu, | Foot pain (left); | | 2011 | | [address] | [address] | Procedure | | | | Center for Health | [id number] | | | | | and Healing, | [place], [place] | | | | | [facility] | [address] | | | | | Floor [place], [place] | [phone] | | | | | [address] | | | | | | [phone] | | | +--------+ + + + [...] migh t be different from the original. [facility] Patient Instructions - Post Interventional Procedure Date: 03/01/2012 Name: Tracie Farah Date of : 1990 Procedure Performed: LUMBAR SYMPATHETIC BLOCK. Procedure Provider: Dale Cantu If you have any problems you believe are associated with your procedure tonight, Please call the Hospital Wind Operations Supervisor, and ask for the Pain Management Consu ltant. If you have problems or questions between 9:00 am and 4:00 pm, Please call the [facility] Nurse Triage Line, . If [...] to the larry ent. LAKEISHA HERRING MD [facility] Pain Center documented in this encounter Progress Notes Dale Cantu MD - 03/01/2012 2:21 PM PDTI was present for the entire procedure (lumbar sympathetic block) and all bocanegra elements of this visit. I reviewed the documentation of the other STICKER OPERATOR providers and concur with Dr. Herring's findings. [...] benefit from multidisciplinary treatment. DALE CANTU MD Study Abroad Advisor, [facility] Pain Center Thermograph Operator, Pain Medicine Professor, Anesthesiology & Perioperative Medicine NAEiDiana scott RN - 03/01/2012 1:35 PM PDT PRE-SEDATION: Date: March 01, 2012 Tracie Farah [id number] 1990 ALLERGIES: Morphine Previous reaction to Sedation/Analgesia: MEDICATIONS: Current Outpatient Prescriptions Medication DULoxetine (CYMBALTA) 30 mg Oral Capsule, Delayed Release(E.C.) HYDROcodone-acetaminophen (NORCO) 10-325 mg Oral Tablet levonorgestrel (MIRENA) 20 mcg/24 hr Intrauterine IUD LORazepam 1 mg Oral Tablet promethazine 25 mg Oral Tablet Meets NPO Guidelines. IV ACCESS: IV in Place IV Start Time 52615, 22g, DRH BASELINE VS: See Sedation Flow Sheet. Tracie Farah [id number] 1990, presents to clinic for: Procedure: Lumbar [...] ml. 1344: Procedure complete. Pt [place] to [place] 1 per man in stable condiotion. IV [...] OPERATIVE NOTE Date: March 01, 2012 Location: [facility] Procedure Room Tracie Donaldson [facility] [id number] :1990, presents to clinic for: PROCEDURE: Lumbar sympathetic block LEVEL/LATERALITY: left L3 PRE-OPERATIVE DIAGNOSIS: 355.71B CRPS (complex regional pain syndrome), lower limb 719.46 Pain in joint, lower leg POST-OPERATIVE DIAGNOSIS: 355.71B CRPS (complex regional pain syndrome), lower limb 719.46 Pain in joint, lower leg ATTENDING PHYSICIAN: Dale Cantu PUSHCART PEDDLER: Fellow Lakeisha Herring MD ANESTHESIA: sedation delivered [...] sedation. Ms. Farah was escorted to the [facility] Procedure Ro om, where she was positioned [...] compromise. Ms. Farah was transported to the [facility] Comprehensive Pain Center post-procedure recovery area [...] block. Images were saved, and sent to [employer]. Ms. Farah will have her next appointment [...] + +--------+ + + + | [place] INJECT NERV | Routin | 03/01/2012 | CRPS (complex | | | BLCK,PARAVERT | e | 2:20 PM | regional pain | | | SYMPATH | | PDT | syndrome), lower | | | | | | limb Pain in joint, | | | | | | lower leg | | + +--------+ + + + | [place] LOCM 100-199 | Routin | 03/01/2012 | CRPS (complex | | | MG/MLICON | e | 1:53 PM | regional pain | | | | | PDT | syndrome), lower | | | | | | limb Pain in joint, | | | | | | lower leg | | + +--------+ + + + | [place] INJ BUPIVACAINE | Routin | 03/01/2012 | [...]
--- OUTSIDE RECORDS SUMMARY | ~2020-05-26 | XMS | Encounter Summary ---
Demographics + + + | Address | [address] | | | [place] [address] | + + + | Home Phone [...] Providers + +------+ + | Care Medical Staff Coordinator Name | Role | Phone | [...] | Pain Center at | ,PhD [address] [facility] | sig) | | | | [facility] | [address] | | | | | [address] | [place], [place] | | | | | [facility] | [address] | | | | | and Martina, | [phone] | | | | | [facility] | | | | | | Floor [place], [place] | | | | | | [address] | | | | | | [phone] | | | +--------+ + + + [...]
--- OUTSIDE RECORDS SUMMARY | ~2020-05-26 | XMS | Encounter Summary ---
Demographics + + + | Address | [address] | | | [place] [address] | + + + | Home Phone [...] Team Providers + +------+ + | Care Trailer Truck Driver Name | Role | Phone [...] | 2018 | on | [facility] at [facility] | [address] | | | | | for Health and | [place], [place] | | | | | Healing [address] | [address] | | | | | Ave [facility] for | [phone] | | | | | Health and Healing, | | | | | | | | | | | | Floor [facility] [place] | | | | | | [address] | | | | | | [phone] | | | +--------+ + + + [...]
--- OUTSIDE RECORDS SUMMARY | ~2020-05-26 | XMS | Encounter Summary ---
Demographics + + + | Address | [address] | | | [place] [address] | + + + | Home Phone [...] Team Providers + +------+ + | Care Tap And Die Maker Technician Name | Role | Phone | [...] 2017 | | Pain Center at | ASSEM[employer]ER [employer] [address] | | | | | [facility] | [place], [place] | | | | | [address] | [address] | | | | | [place] for [facility] | [phone] | | | | | and Healing, | | | | | | | | | | | | Floor [place], [place] | | | | | | [address] | | | | | | [phone] | | | +--------+ + + + [...]
--- OUTSIDE RECORDS SUMMARY | ~2020-05-26 | XMS | Encounter Summary ---
Demographics + + + | Address | [address] | | | [place] [address] | + + + | Home Phone [...] Providers + +------+ + | Care Cut Press Operator Name | Role | Phone | + +------+ + | Justo Vazquez MD | PCP | | + +------+ + Encounter Details +--------+ + + + + | Date | Type | Department | Care Team | Description | +--------+ + + + + | 12/07/ | Pharmacy | [facility] | | | | 2019 | Visit | & [facility] | | | | | | [address] | | | | | | Mailcode: [place] | | | | | | [facility] and | | | | | | Healing, Building [address] | | | | | | [place], [place] | | | | | | [address] | | | | | | [phone] | | | +--------+ + + + [...]
--- OUTSIDE RECORDS SUMMARY | ~2020-05-26 | XMS | Encounter Summary ---
Demographics + + + | Address | [address] | | | [place] [address] | + + + | Home Phone [...] Providers + +------+ + | Care Card Feeder Name | Role | Phone | [...] with nausea | [address] | Rd [place], | | | | | Complex | Rd | [place] | | | | | regional | [place], [place] | [address] | | | | | pain | [address] | Phone: | | | | | syndrome | Phone: | [phone] | | | | | type 1 of | [phone] | Fax: | | | | | left lower | Fax: | [phone] | | | | | extremity | [phone] | | | | | | Procedures [...] | [facility] | [address] | | | | | location | Rd | [facility] | | | | | Procedures | [place], [place] | Rd [place], | | | | | CONSULT TO | [address] | [place] | | | | | PAIN | | [address] | | | | | MANAGEMENT | | Phone: | | | | | | | [phone] | | | | | | | Fax: | | | | | | | [phone] | +--------+--------+ + + + + Encounter Details +--------+---------+ + + + | Date | Type | Department | Care Team | Description | +--------+---------+ + + + | 04/19/ | Office | [facility] | Alex Sanchez, | Intractable cyclical | | 2018 | Visit | Pain Center at | ,PhD [address] | vomiting with | | | | [facility] | [address] | nausea (Primary Dx); | | | | [address] | [place], [place] | 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 [facility] Return Visit Date: 04/20/2018 Chief Complaint Patient presents with Abdominal pain Back pain Pain in left leg History of Present Illness: Tracie Farah is a 27 year old female, whose last appoi ntment at the [facility] was 12/27/2017, for [...] not help for the abdominal pain). PAINBRIEF: [facility] Brief Pain Inventory: (ten= worst possible [...] Hemroidectomy Trial spinal cord stimulator leads 08/02/2012 [facility], Surgeon: Janak Riojas MD Cholecystectomy Appendectomy [...] History Social History Narrative Single. Goes to [employer] with a light load. Has been working at [employer], can' t work on crinfoBizzches. Has roommates. Allergies Allergen Reactions Morphine Anaphylaxis [...] by physician. Concentration is 150mg/mL. Compounded by [facility] ) KETOROLAC IM Inject into [...] to her by Christie Madrid MD in [place], [place]. As she chowdhury s since left the practice, Ms. Farah no longer has a prescriber for this medication. At [facility], we typically do [...] unclear etiology. [facility] and [facility] greatly [facility] [...] Follow up as needed Alex Sanchez MD,PhD [facility] 3 :41 PM [...]
--- OUTSIDE RECORDS SUMMARY | ~2020-05-26 | XMS | Encounter Summary ---
Demographics + + + | Address | [address] | | | [place] [address] | + + + | Home Phone [...] Providers + +------+ + | Care Flue Dust Laborer Name | Role | Phone | [...] | 2017 | | Center at [facility] [address] | | Review | | | | [facility] | | | | | | for Health and | | | | | | [facility], [facility] 2 | | | | | | [place], [place] | | | | | | [address] | | | | | | [phone] | | | +--------+ + + + [...]
--- OUTSIDE RECORDS SUMMARY | ~2020-05-26 | XMS | Encounter Summary ---
Demographics + + + | Address | [address] | | | [place] [address] | + + + | Home Phone [...] Providers + +------+ + | Care Heat Treater Helper Name | Role | Phone | [...] | | | | left lower | [facility] [place] | [place] | | | | | extremity | [address] | [address] | | | | | Procedures | Phone: | Phone: | | | | | REQUEST TO | [phone] | [phone] | | | | | SURGERY | Fax: | Fax: | | | | | APIGEE DEVELOPER | [phone] | [phone] | +--------+---------+ + + + + Physical [...] | | | | regional | ,PhD [address] | OT[facility]hab | | | | | pain | [address] [facility] | [address] | | | | | syndrome | [facility] | [place] | | | | | type 1 of | Rd | [place] | | | | | left lower | [place], [place] | [address] | | | | | extremity | [address] | Phone: | | | | | Procedures | Phone: | [phone] | | | | | PHYSICAL | [phone] | Fax: | | | | | THERAPY | Fax: | [phone] | | | | | REFERRAL | [phone] | | +--------+--------+ + + + + [...] | | | | | Procedures | [place], [place] | Rd [place], | | | | | CONSULT TO | [address] | [place] | | | | | PAIN | | [address] | | | | | MANAGEMENT | | Phone: | | | | | | | [phone] | | | | | | | Fax: | | | | | | | [phone] | +--------+--------+ + + + + Encounter Details +--------+---------+ + + + | Date | Type | Department | Care Team | Description | +--------+---------+ + + + | 06/12/ | Office | [facility] Comprehensive | Alex Sanchez, | 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 The procedure you discussed with your doctor is called: SCS DRG TRIAL LUMBAR [facility]. Please make sure this is scheduled with the Marine Oiler. PRE-PROCEDURE INSTRUCTIONS 1. Please bring a ice delivery driver with you as we may give you medications that impair your ability to drive. This is necessary even if you do not receive sedation. You may take a taxi or ri [employer] if you are accompanied by a responsible [...] phone number for questions or concerns is [phone]. documented in this encounter Progress Notes Holly [...] MD,P hD - 06/12/2018 10:00 AM PDT [facility] Return Visit Date: 06/12/2018 [...] that this mildly agitated her neck pain. JAVA WEB SERVICES DEVELOPER Brief Pain Inventory: (ten= worst possible [...] Trial spinal cord stimulator leads 08/02/2012 [facility], Surgeon: Janak Riojas MD Cholecystectomy [...] History Social History Narrative Single. Goes to [employer] with a light load. Has been working at [employer], can' t work on [employer]. Has roommates. Allergies Allergen Reactions Morphine Anaphylaxis [...] by physician. Concentration is 150mg/mL. Compounded by [facility] ) KETOROLAC IM Inject into the [...] directed by [facility] Dig[facility]ive [facility]- 2 gallon [...] and summary of old medical records (source: [employer]), as summarized in the body of the [...] to send me a mess age via [phone] to request referrals to acupuncture and massage [...] Sonia Key. Alex Sanchez MD PhD Door Opener Anesthesiology and Pain Management [facility] documented in t his encounter Plan [...]
--- OUTSIDE RECORDS SUMMARY | ~2020-05-26 | XMS | Encounter Summary ---
Demographics + + + | Address | [address] | | | [place] [address] | + + + | Home Phone [...] Providers + +------+ + | Care Maintenance Truck Driver Name | Role | Phone [...] Pain Medicine | Diagnoses | Chasity, | Grazing Examiner Chh1 | | | | / Pain | Abdominal | MD Kenny | [address] | | | | Management | pain, | [address] | [facility] | | | | | unspecified | [facility] | for Health | | | | | location | Rd | and Healing, | | | | | Procedures | [place], [place] | Building | | | | | CONSULT TO | [address] | 1,15th Floor | | | | | PAIN | | [place], [place] | | | | | MANAGEMENT | | [address] | | | | | | | Phone: | | | | | | | [phone] | | | | | | | Fax: | | | | | | | [phone] | +--------+--------+ + + + + Reason [...] Abdominal | | 2016 | | Center [place] [address] [address] | | pain | | | [address] [facility] | | | | | | for Health and | | | | | | Healing, [facility] 2 | | | | | | [place], [place] | | | | | | [address] | | | | | | [phone] | | | +--------+ + + + [...]
--- OUTSIDE RECORDS SUMMARY | ~2020-05-26 | XMS | Encounter Summary ---
Demographics + + + | Address | [address] | | | [place] [address] | + + + | Home Phone [...] Team Providers + +------+ + | Care Rural Health Consultant Name | Role | Phone | [...] | | | Spasticity | Ave | [facility] [place] | | | | | Procedures | [facility] [place] | [address] | | | | | CONSULT TO | [address] | Phone: | | | | | PAIN | Phone: | [phone] | | | | | MANAGEMENT | [phone] | Fax: | | | | | | Fax: | [phone] | | | | | | [phone] | | +--------+---------+ + + + + [...] | | MD Celia | MD Brendan [address] | | | | | Fibromyalgia | [address] | RAMONA Delvalle | | | | | Spasticity | Ave | [place] | | | | | Epigastric | [place], [place] | Rd [place], | | | | | pain | [address] | [place] | | | | | Procedures | Phone: | [phone] | | | | | REQUEST TO | [phone] | Phone: | | | | | SURGERY | Fax: | [phone] | | | | | [place] [employer] SYSTEM OPERATOR | [phone] | Fax: | | | | | [place] INJECT | | [phone] | | | | | TRIGGER | | | | | | | POINT, 1 [place] | | | | | | | 2 [place] INJECT | | | | | | [...] Pain Medicine | Diagnoses | Chasity, | Parts Assembler Chh1 | | | | / Pain | Abdominal | MD Kenny | [address] | | | | Management | pain, | [address] | Ave Center | | | | | unspecified | [facility] | for Health | | | | | location | Rd | and Healing, | | | | | Procedures | [place], [place] | Building | | | | | CONSULT TO | [address] | 1,15th Floor | | | | | PAIN | | [place], [place] | | | | | MANAGEMENT | | [address] | | | | | | | Phone: | | | | | | | [phone] | | | | | | | Fax: | | | | | | | [phone] | +--------+--------+ + + + + Encounter Details +--------+---------+ + + + | Date | Type | Department | Care Team | Description | +--------+---------+ + + + | 10/11/ | Office | [facility] Comprehensive | Vern Robertson, | Epigastric pain | | 2017 | Visit | Pain Center at | MOTOR PATROL OPERATOR [address] | (Primary Dx); | | | | [facility] | [place], [place] | Spasticity | | | | [address] | [address] | | | | | [place] for Health | [phone] | | | | | and Healing, | | | | | | Building | | | | | | Floor [place], [place] | | | | | | [address] | | | | | | [phone] | | | +--------+---------+ + + + [...] true warrior! * Please sign up for DinetouchHART. This is the best way to communicate with me. It will save you time in the long run. The procedure you discussed with your doctor is called: Trigger point injection of abdomina l scar. Please make sure this is scheduled with the Plaster Tender. PRE-PROCEDURE INSTRUCTIONS 1. Please bring a speedboat driver with you as we may give you medications that impair your ability to drive. This is necessary even if you do not receive sedation. You may take a taxi or ri [employer]scar if you are accompanied by a responsible [...] or blood thinning medications (other than aspirin), [facility] doctor who is doing your procedure will communicate with the provider who is prescribing y our anticoagulant therapy. If you do not have clear instructions on what to do with your an ticoagulant by 2 weeks before your procedure, please contact [facility] to cl arify your instructions. The phone number for questions or concerns is [phone]. * Consider Lidoderm topical or compound prescription [...] muscle hyper tonicity. * Consider increasing your Crump 3 fats. Crump-3 fats are precursors to mediators of inflammation [...] oil if approved by your PCP or police captain precinct. * Eliminate High Fructose [place] Syrup and Sugar from your diet as [...] review treatment plan. * Follow up with [facility] Center as needed. [...] last appoi ntment at the [facility] [place] was 07/11/17 with TERESA Clark, for a [...] She reports multiple diagnostic tests conducted at [facility] in [place], [place] including barium swallow and Hydrogen breath [...] Torodol shots: only form of symptom relief. PARLIAMENTARY LIBRARIAN Brief Pain Inventory: (ten= worst possible pain [...] Hemroidectomy Trial spinal cord stimulator leads 08/02/2012 [facility], Surgeon: Janak Riojas MD Cholecystectomy Appendectomy [...] History Social History Narrative Single. Goes to [employer] with a light load. Has been working at [employer], can' t work on crBreatherches. Has roommates. Allergies Allergen Reactions Morphine Anaphylaxis [...] by physician. Concentration is 150mg/mL. Compounded by [facility] ) LAMOTRIGINE 200 MG TABLET Take [...] as directed by [facility] Digestive [facility]- 2 [...] reviewed. - Review old medical records (from [facility]). Pertinent findings include: abdominal surger y [...] review treatment plan. * Follow up with [facility] as needed. IGuillermo am scribing for Vern Robertson NP on 10/11/2017 I have reviewed and verified the above scribed note of my visit with this patient as record ed by Guillermo Hope. Vern Robertson NP PAIN CENTER AT [facility] 15TH FLOOR [address] Mail Code: [place] [address] documented in this e ncounter Plan of Treatment Not on filedocumented as of this encounter Visit Diagnoses + + | Diagnosis | + + | Epigastric pain - Primary Abdominal pain, epigastric | + + | Spasticity Abnormal involuntary movements | + + documented in this encounter
--- OUTSIDE RECORDS SUMMARY | ~2020-05-26 | XMS | Encounter Summary ---
Demographics + + + | Address | [address] | | | [place] [address] | + + + | Home Phone [...] +------+ + | Care Head Of Digital Name | Role | Phone | + [...] (ortho question) | | | | [facility] | [facility] | | | | | [address] | [place], [place] | | | | | [facility] | [address] | | | | | and Healing, | [phone] | | | | | | | | | | | Floor [place], [place] | | | | | | [address] | | | | | | [phone] | | | +--------+ + + + [...]
--- OUTSIDE RECORDS SUMMARY | ~2020-05-26 | XMS | Encounter Summary ---
Demographics + + + | Address | [address] | | | [place] [address] | + + + | Home Phone [...] Providers + +------+ + | Care Director Drug Safety Name | Role | Phone | [...] | syndrome | [address] | [facility] | | | | | type 1 of | Rd | Rd [place], | | | | | left lower | [place], [place] | [place] | | | | | extremity | [address] | [address] | | | | | Procedures | Phone: | Phone: | | | | | REQUEST TO | [phone] | [phone] | | | | | SURGERY | Fax: | Fax: | | | | | CAD DESIGNER DRAFTER | [phone] | [phone] | +--------+---------+ + + + + Encounter Details +--------+---------+ + + + | Date | Type | Department | Care Team | Description | +--------+---------+ + + + | 09/28/ | Office | [facility] Comprehensive | Yun Frey, MEAT AND SEAFOOD MANAGER | Complex regional | | 2018 | Visit | Pain Center at | [address] | pain syndrome type 1 | | | | [place] | [place], [place] | of left lower | | | | [address] | [address] | extremity (Primary | | | | Center for Health | [phone] | Dx); Arthralgia of | | | | and Healing, | | left lower leg | | | | | | | | | | [place], [place] | | | | | | [address] | | | | | | [phone] | | | +--------+---------+ + + + [...] Dr. Sanchez on 10/02/2018. -Please contact the Sandy's rep if you have any further question [...] PM PST September 28, 2018 Tracie Farah [id number] [facility] Pain [facility] Return [...] drawing which I reviewed. [facility] Questionnaire Follow-up Patient 10/10/2017 Please [...] PROCEDURE: DRG Spinal Cord Stimuation Trial with [employer]. MOVE Guides system LEVEL/LATERALITY: left L4, L5. Till date, [...] turned up to 7%. After seeing th international account representative today and killian ing adjustments, [...] Hemroidectomy Trial spinal cord stimulator leads 08/02/2012 [facility], Surgeon: Janak Riojas MD Cholecystectomy Appendectomy Other [...] the vein (IV) every eight hour s. 8635-8494-11 COMPOUNDED MED RX CONTROLLED (SEE ADMIN INSTRUCT [...] by physician. Concentration is 150mg/mL. Compounded by [facility] ) KETOROLAC IM Inject into the [...] (IV) every twel ve hours as needed. 4230-3134-39 ONDANSETRON 4 MG DISINTEGRATING TABLET Dissolve 1 tablet in mouth every twelve hours as nee ded. PANTOPRAZOLE 40 MG TABLET,DELAYED RELEASE Take 40 mg by mouth once daily. PEG 3350-ELECTROLYTES 236 GRAM-22.74 GRAM-6.74 GRAM-5.86 GRAM SOLUTION Take as directed by [facility] Digestive [facility]- 2 gallon bowel prep POLYETHYLENE GLYCOL [...] been given programming opti ons by the [employer]'s device international account representative, Michele. At this time, there is no complication from the DRG trial. Recommendations/Plan: 1. Recommend to keep her appointment with Dr. Sanchez on 10/02/2018. 2. To contact the [employer]'s rep if she has any further question on programming. 09/28/2018: I, Dayana Ivan, am functioning as a medical dir for Yun Frey NP. I have reviewed and verified the above scribed note of my visit with this patient as record ed by Ms. Dayana Ivan. Jeanine Frey (Mr.) MSN, ACNP- Nurse Practitioner [facility] [address] [place] [id number] documented in this enco unter Plan of [...]
--- OUTSIDE RECORDS SUMMARY | ~2020-05-26 | XMS | Encounter Summary ---
Demographics + + + | Address | [address] | | | [place] [address] | + + + | Home Phone [...] Providers + +------+ + | Care Deputy Chief Magistrate Name | Role | Phone | + [...] Pain Medicine | Diagnoses | Chasity | Package Sealer Machine Chh1 | | | | / Pain | Abdominal | MD Kenny | [address] | | | | Management | pain, | [address] | [facility] | | | | | unspecified | [facility] | for Health | | | | | location | Rd | and Healing, | | | | | Procedures | [place], [place] | Building | | | | | CONSULT TO | [address] | 1,15th Floor | | | | | PAIN | | [place], [place] | | | | | MANAGEMENT | | [address] | | | | | | | Phone: | | | | | | | [phone] | | | | | | | Fax: | | | | | | | [phone] | +--------+--------+ + + + + Encounter Details +--------+---------+ + + + | Date | Type | Department | Care Team | Description | +--------+---------+ + + + | 07/11/ | Office | [facility] Comprehensive | Ilene Bright, | Pain of upper | | 2017 | Visit | Pain Center at | ELASTIC ATTACHER CHAINSTITCH [address] | abdomen (Primary | | | | [place] | [place], [place] | Dx); Intractable | | | | [address] | [address] | cyclical vomiting | | | | [facility] | [phone] | with nausea; | | | | and Healing, | | Irritable bowel | | | | Building | | syndrome with | | | | Floor [place], [place] | | constipation; | | | | [address] | | Complex regional | | | | [phone] | | pain syndrome type 1 | [...] and determine next steps. Ilene Childs DNP, ELASTIC ATTACHER CHAINSTITCH-C Adult Pain Service /[facility] Pain Center [address] [place] [address] documented in this encounter Progress Notes Ilene Bright FNP - 07/11/2017 1:35 PM PDTFormatting of this note might be different fr om the original. [facility] Pain Center Return Visit [...] [facility] the [facility]. She has also changed [...] abdominal pain an d associated symptoms. [facility] QUESTIONNAIRE BRIEF PAIN 07/11/2017 Please rate [...] has interfered with your sleep : 5 BONSAI TENDER Questionnaire Follow-up Patient 07/11/2017 Please describe the [...] History Social History Narrative Single. Goes to [employer] with a light load. Has been working at [employer], can' t work on [employer]. Has roommates. Allergies Allergen Reactions Morphine Anaphylaxis [...] by physician. Concentration is 150mg/mL. Compounded by [facility] ( [phone]) LAMOTRIGINE 200 MG TABLET Take 1 tablet [...] directed by [facility] Digestive Health- 2 gallon [...] and summary of old medical records (source: iMER), as summarized in the body of the [...] [place], am functioning as a medical collections specialist for TERESA Clark DNP-C I have reviewed and verified the above scribed note of my visit with this patient as record ed by Shantel Salinas. Ilene Childs DNP, TERESA-C Adult Pain Service /[facility] [address] [place] [address] Addendum: I paged Dr. Les Gaspar. He was out of the clinic, I spoke with the covering provider and sha dandre Tracie's request for food allergy testing. Since Tracie thinks her pain and vomiting may b e triggered by gluten, covering provided ordered appropriate workup, which I communicated to Tracie and the the lab in [place], [place]. She will followup with me and GI once these results are available. Ilene Childs DNP, ELASTIC ATTACHER CHAINSTITCH-C Adult Pain Service /[facility] [address] [place] [address] documented in this e ncounter Plan of [...]
--- OUTSIDE RECORDS SUMMARY | ~2020-05-26 | XMS | Encounter Summary ---
Demographics + + + | Address | [address] | | | [place] [address] | + + + | Home Phone [...] Providers + +------+ + | Care Nurse Infection Control Name | Role | Phone | + +------+ + | Justo Vazquez MD | PCP | | + +------+ + Encounter Details +--------+ + + + + | Date | Type | Department | Care Team | Description | +--------+ + + + + | 03/17/ | MyChart | [facility] Comprehensive | Yun Frey NP | Welcome | | 2017 | Encounter | Pain Center at | [address] | | | | | [facility] | [place], [place] | | | | | [address] | [address] | | | | | [place] for [facility] | [phone] | | | | | and Healing, | | | | | | | | | | | | Floor [place], [place] | | | | | | [address] | | | | | | [phone] | | | +--------+ + + + [...]
--- OUTSIDE RECORDS SUMMARY | ~2020-05-26 | XMS | Encounter Summary ---
Demographics + + + | Address | [address] | | | [place] [address] | + + + | Home Phone [...] Team Providers + +------+ + | Care Trimming Inspector Name | Role | Phone | [...] Pharmacy | | | | | | [address] | | | | | | Loop [place], [place] | | | | | | [address] | | | | | | [phone] | | | +--------+ + + + [...]
--- OUTSIDE RECORDS SUMMARY | ~2020-05-26 | XMS | Encounter Summary ---
Demographics + + + | Address | [address] | | | [place] [address] | + + + | Home Phone [...] Providers + +------+ + | Care Dairy Farm Worker Name | Role | Phone [...] [facility] | [address] | | | | | [address] | [place], [place] | | | | | [facility] | [address] | | | | | and Martina, | [phone] | | | | | [facility] | | | | | | Floor [place], [place] | | | | | | [address] | | | | | | [phone] | | | +--------+--------+ + + + [...]
--- OUTSIDE RECORDS SUMMARY | ~2020-05-26 | XMS | Encounter Summary ---
Demographics + + + | Address | [address] | | | [place] [address] | + + + | Home Phone [...] Providers + +------+ + | Care Instructional Technology Director Name | Role | Phone | [...] | Diagnoses | Beulah | Edu Pt Education Site Manager | | | | Therapy | CRPS | Janak Martinez MD | Chh1 [address] | | | | | (complex | [address] | | | | | regional | [address] | Mailcode: | | | | | pain | Mailstop | [facility] | | | | | syndrome), | [id number] | for Health | | | | | lower limb | [place], [place] | and Healing, | | | | | Gait | [address] | Building 1 | | | | | disturbance | Phone: | [place], [place] | | | | | Muscle pain | [phone] | [address] | | | | | Procedures | Fax: | Phone: | | | | | PHYSICAL | [phone] | [phone] | | | | | THERAPY | [...] | | | [address] | [place] [address] | syndrome), lower | | | | [address] | [phone] | limb (Primary Dx) | | | | [facility] | | | | | | and Healing, | | | | | | Building 1, | | | | | | Floor [place], [place] | | | | | | [address] | | | | | | [phone] | | | +--------+---------+ + + + [...] might be different f rom the original. [id number] BRODY FARAH Date of : 1990 Start of care: 02/14/2012 Date of onset: 02/14/2012 Referring/Attending Practitioner: Janak Riojas MD . Primary/Referral Diagnosis/ICD-9: 355.71B CRPS (complex regional pain syndrome), lower limb Insurance: Payor: [facility] [employer] [facility] Plan: BCBS OUT OF STATE Product Type: PP O Service period from: 02/14/2012 to: 08/12/2012 Number visits used/authorized: 11/25 [facility] PHYSICAL THERAPY INITIAL EVALUATION SUBJECTIVE: [...] pain relief. Admitted to the inpatient [facility] program for 1 month in the [...] evaluation: Records from CRPS program at [facility]. Suggest three phase bone sca n. [...] employed by the psychologists here at the [facility]. 2.2 Physical therapy can reduce pain and improve functional status. Suggest Guillermo Sanon. 3. Medication suggestions: 3.1 Continue titrating up duloxetine. 3.2 As for any patient being managed with chronic opioids, we do recommend that the patient have a signed [facility] Material Risk Notice, agree to whatever [...] spent a month in the program at [facility] working through aggressive desensitization and activation [...] HOSPITAL Outpatient Rehabilitation Services Mailcode: Ch3p [address] [facility] [address] [facility] [address] documented in this encounter Plan of Treatment Not on filedocumented as of this encounter Procedures + +--------+ + + + | Procedure Name | Priori | Date/Time | Associated Diagnosis | Comments | | | ty | | | | + +--------+ + + + | [place] THERAPEUTIC | Routin | 02/16/2012 | CRPS (complex | | | EXERCISES | e | 3:34 PM | regional pain | | | | | PDT | syndrome), lower | | | | | | limb | | + +--------+ + + + | NC PHYS THERAPY | Routin | 02/16/2012 | [...]
--- OUTSIDE RECORDS SUMMARY | ~2020-05-26 | XMS | Encounter Summary ---
Demographics + + + | Address | [address] | | | [place] [address] | + + + | Home Phone [...] Team Providers + +------+ + | Care Fusing Furnace Loader Name | Role | Phone | [...] + + | 08/03/ | Refill | [facility] Comprehensive | Alex Sanchez, | Refill Request | | 2018 | | Pain Center at | ,PhD [address] [facility] | (ketamine) | | | | [facility] | [facility] | | | | | [address] | [place], [place] | | | | | [facility] | [address] | | | | | and Martina, | [phone] | | | | | [facility] | | | | | | Floor [place], [place] | | | | | | [address] | | | | | | [phone] | | | +--------+--------+ + + + [...]
--- OUTSIDE RECORDS SUMMARY | ~2020-05-26 | XMS | Encounter Summary ---
[...] Providers + +------+ + | Care Nursing Home Assistant Name | Role | Phone | [...] | | pain | [address] | [place], [place] | | | | | syndrome | [place] | [address] | | | | | type 1 of | [address] | Phone: | | | | | left lower | Phone: | [phone] | | | | | extremity | [phone] | Fax: | | | | | Midline low | Fax: | [phone] | | | | | back pain | [phone] | | | | | | without [...] Ave | | | | | | [place], [place] | [facility] [place] | | | | | | [address] | [address] | | | | | | Phone: | Phone: | | | | | | [phone] | [phone] | | | | | | Fax: | Fax: | | | | | | [phone] | [phone] | +--------+---------+ + + + + Encounter Details +--------+---------+ + + + | Date | Type | Department | Care Team | Description | +--------+---------+ + + + | 07/04/ | Office | [facility] Comprehensive | Lane Reyes, | Complex regional | | 2019 | Visit | Pain Center at | [place] [address] | pain syndrome type 1 | | | | [place] | [place], [place] | of left lower | | | | [address] | [address] | extremity (Primary | | | | [facility] | [phone] | Dx); Midline low | | | | and Healing, | | back pain without | | | | Building | | sciatica, | | | | Floor [place], [place] | | unspecified | | | | [address] | | chronicity; | | | | [phone] | | Sacroiliac pain; | | | [...] and help in coping with the pain. PRELOAD SUPERVISOR Brief Pain Inventory: (ten= worst possible [...] Trial spinal cord stimulator leads 08/02/2012 [facility], Surgeon: Janak Riojas MD Cholecystectomy Appendectomy [...] a light load. Has been working at [employer], can' t work on [employer]. Has roommates. Allergies Allergen Reactions Morphine Anaphylaxis [...] Take as directed by [facility]- 2 gallon bowel prep POLYETHYLENE GLYCOL 3350 17 GRAM/DOSE ORAL POWDER Take 17 g by mouth once daily. PROMETHAZINE 12.5 MG TABLET Take 1 tablet by mouth four times daily as needed for nausea/vo miting. SUCRALFATE 1 GRAM TABLET Take 1 g by mouth four times daily. Radiology/Diagnostic Tests: X-RAY SPINE CERV 4 VIEWS Order: [id number] Performed: 06/12/2018 11:40 Status: Final result Visible [...] that the treatment performed by the chiropractic campus recruiting intern, Niesha Reveles, was directly observed by myself the primary chiropractor Lane Reyes [place] Visit Diagnoses: ICD-10-CM 1. Complex regional pain syndrome type 1 of left lower extremity G90.522 CONSULT TO PAIN [facility] 2. Midline low back pain without sciatica, unspecified chronicity M54.5 CONSULT TO PAIN [facility] 3. Sacroiliac pain M53.3 CONSULT TO PAIN MANAGEMENT ME CHIROPRAC MANIP,SPINAL,1-2 REGIONS 4. Sacral dysfunction M53.3 ME CHIROPRAC MANIP,SPINAL,1-2 REGIONS 5. Somatic dysfunction of pelvis region M99.05 ME CHIROPRAC MANIP,SPINAL,1-2 REGIONS 6. Somatic dysfunction of sacral region M99.04 ME CHIROPRAC MANIP,SPINAL,1-2 REGIONS Impression: Tracie Farah is [...] verified the above note written by Chiropractic campus recruiting intern of our visit wit h this patient as recorded by Lane Reyes [place] [facility] AT [address] Mail Code: Ch15[place] [address] documented in this e ncounter Plan of Treatment Not on filedocumented as of this encounter Procedures + +--------+ + + + | Procedure Name | Priori | Date/Time | Associated Diagnosis | Comments | | | ty | | | | + +--------+ + + + | ME CHIROPRAC | Routin | 07/10/2019 | Sacroiliac [...]
--- OUTSIDE RECORDS SUMMARY | ~2020-05-26 | XMS | Encounter Summary ---
Demographics + + + | Address | [address] | | | [place] [address] | + + + | Home Phone [...] + +------+ + | Care Form Grader Name | Role | Phone | [...] + + | 12/05/ | Hospital | [facility] | Alex Sanchez, | | | 2019 | Encounter | STAY [address] | ,PhD [address] [employer] | | | | | Court[place] Mailcode: [facility] | [address] | | | | | [facility] | [place], [place] | | | | | Health and [facility], | [address] | | | | | [place] [address] | [phone] | | | | | [place], [place] | | | | | | [address] | | | | | | [phone] | | | +--------+ + + + [...] s/p successful DRG trial lead system with [employer] on 09/25/2018. No changes in H&P, [...] OPERATIVE NOTE Date: December 05, 2018 Location: [facility] [place] | | | Tracie Farah [id number] :1990, presents to clinic | | | for: Dorsal root ganglion stimulator implant PROCEDURE: Dorsal | | | root ganglion stimulator implant PRE-OPERATIVE DIAGNOSIS: Complex | | | regional Pain syndrome type 1 of left lower extremity | | | POST-OPERATIVE DIAGNOSIS: Complex regional Pain syndrome type 1 of | | | left lower extremity ATTENDING PHYSICIAN: Alex Sanchez | | | NEW ACCOUNTS BANKING REPRESENTATIVE: Arben Valerio MD ANESTHESIA: sedation by IVIS Cole | | | Carmen, supervised by radio personality Ilir Valdes. | | | FINDINGS: Appropriate [...] sedation. Ms. Farah was escorted to the [facility] | | | [place], where [...] to the | | | [facility] authorization representative. A test stimulation was performed and [...] recovery. Images were saved, and sent to [employer]. | | | Alex Sanchez (attending) was present for the entire procedure. | | | Arben Valerio MD I was present for the entire procedure | | | (spinal cord stimulator implantation with DRG leads at left L4 and | | | L5) and all bocanegra elements of this visit. I reviewed the | | | documentation of the other [facility] providers and concur with Dr. | | | Iman's findings. I edited his note. Alex Sanchez, | | | ,PhD Mechanical Design Engineer Anesthesiology and Pain Management | | | [facility] | | + + + [...] + + | JOSE ANTONIO MIN | [address] [facility] | [place] [address] | | | OF CARE TESTS | [...]
--- OUTSIDE RECORDS SUMMARY | ~2020-05-26 | XMS | Encounter Summary ---
Demographics + + + | Address | [address] | | | [place] [address] | + + + | Home Phone [...] Team Providers + +------+ + | Care Thread Tool Grinder Set Up Operator Name | Role | [...] | Pain Center at | [address] | | | | | [facility] | [address] [place] [address] | | | | | [address] | [place], [place] | | | | | Center for Health | [address] | | | | | and Healing, | [phone] | | | | | [facility] | | | | | | Floor [place], [place] | | | | | | [address] | | | | | | [phone] | | | +--------+ + + + [...]
--- OUTSIDE RECORDS SUMMARY | ~2020-05-26 | XMS | Encounter Summary ---
Demographics + + + | Address | [address] | | | [place] [address] | + + + | Home Phone [...] Providers + +------+ + | Care Veterinary Pharmacologist Name | Role | Phone | + [...] | | 2015 | | Center at [facility] [address] | MD Melissa | | | | | [address] [facility] | | | | | | for Health and | | | | | | Healing, Building 2 | | | | | | [place], [place] | | | | | | [address] | | | | | | [phone] | | | +--------+ + + + [...]
--- OUTSIDE RECORDS SUMMARY | ~2020-05-26 | XMS | Encounter Summary ---
Demographics + + + | Address | [address] | | | [place] [address] | + + + | Home Phone [...] Providers + +------+ + | Care Supervisor Metalizing Name | Role | Phone | + [...] | Diagnoses | Beulah | Edu Pt Material Distributor | | | | Therapy | CRPS | Janak Martinez MD | Chh1 [address] | | | | | (complex | [address] | | | | | regional | [address] | Mailcode: | | | | | pain | Mailstop | [facility] | | | | | syndrome), | [id number] | for Health | | | | | lower limb | [place], [place] | and Healing, | | | | | Gait | [address] | Building 1 | | | | | disturbance | Phone: | [place], [place] | | | | | Muscle pain | [phone] | [address] | | | | | Procedures | Fax: | Phone: | | | | | PHYSICAL | [phone] | [phone] | | | | | THERAPY | [...] | | | | [place] | [place] [address] | syndrome), lower | | | | [address] | [phone] | limb (Primary Dx) | | | | [facility] | | | | | | and Healing, | | | | | | Building 1, | | | | | | Floor [place], [place] | | | | | | [address] | | | | | | [phone] | | | +--------+---------+ + + + [...] might be different f rom the original. [id number] BRODY FARAH Date of : 1990 Start of care: 02/14/2012 Date of onset: 02/14/2012 Referring/Attending Practitioner: Janak Riojas MD . Primary/Referral Diagnosis/ICD-9: 355.71B CRPS (complex regional pain syndrome), lower limb Insurance: Payor: [facility] [employer] [facility] Plan: BCBS OUT OF STATE Product Type: PP O Service period from: 02/14/2012 to: 08/12/2012 Number visits used/authorized: 12/26 [facility] PHYSICAL THERAPY PROGRESS NOTE SUBJECTIVE: Age: 21 y.o. Sex: female Chief complaint: No chief complaint on file. 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 She is doing much better ov [facility], possibly because she finished school and so has less stress. She stopped using crutch es in early April (18 days ago) which is less stressful. Now she is working at [employer] 2-3 hours per week, and spends a [...] pain meds. Social History: lives in [place], 22 years old, not working [...] concerns about therapy: she lives in [place]. She is r equesting family [...] in their status. Guillermo Sanon MSPBren [facility] Outpatient Rehabilitation Services Mailcode: Ch3p [address] [facility] 1st Floor [facility] [address] documented in this encounter Plan of Treatment Not on filedocumented as of this encounter Procedures + +--------+ + + + | Procedure Name | Priori | Date/Time | Associated Diagnosis | Comments | | | ty | | | | + +--------+ + + + | [place] THERAPEUTIC | Routin | 05/03/2012 | CRPS [...]
--- OUTSIDE RECORDS SUMMARY | ~2020-05-26 | XMS | Encounter Summary ---
Demographics + + + | Address | [address] | | | [place] [address] | + + + | Home Phone [...] Providers + +------+ + | Care Watch Guard Gate Name | Role | Phone | + [...] | | | | | [place]iana [place], | | | | | | [place] [address] | | | +--------+ + + + [...]
--- OUTSIDE RECORDS SUMMARY | ~2020-05-26 | XMS | Encounter Summary ---
Demographics + + + | Address | [address] | | | [place] [address] | + + + | Home Phone [...] Providers + +------+ + | Care Loader Magazine Grinder Name | Role | Phone | + +------+ + | Justo Vazquez MD | PCP | | + +------+ + Encounter Details +--------+------+ + + + | Date | Type | Department | Care Team | Description | +--------+------+ + + + | 12/14/ | Lab | Laboratory at [facility] | | Complex regional | | 2018 | | [address] | | pain syndrome type 1 | | | | Center for [facility] | | of left lower | | | | and Healing, | | extremity; Muscle | | | | Building 2 | | pain | | | | [place], [place] | | | | | | [address] | | | | | | [phone] | | | +--------+------+ + + + [...] + + | [facility] [employer] | [address] | [place] [address] | | | LILLIAN CROSS | GUILLERMO [...]
--- OUTSIDE RECORDS SUMMARY | ~2020-05-26 | XMS | Encounter Summary ---
Demographics + + + | Address | [address] | | | [place] [address] | + + + | Home Phone [...] Team Providers + +------+ + | Care Preparatory Technician Name | Role | Phone | [...] Vomiting; | | 2016 | | Center [place] [address] [address] | | Constipation; | | | | [address] [place] | | Abdominal pain | | | | for Health and | | | | | | Healing, Building [address] | | | | | | [place], [place] | | | | | | [address] | | | | | | [phone] | | | +--------+ + + + [...]
--- OUTSIDE RECORDS SUMMARY | ~2020-05-26 | XMS | Encounter Summary ---
Demographics + + + | Address | [address] | | | [place] [address] | + + + | Home Phone [...] Team Providers + +------+ + | Care Cartridge Loading Operator Name | Role | Phone | [...] | | | | | syndrome | [facility] | [facility] | | | | | type [address] of | [address] | Rd [place], | | | | | left lower | [facility] [place] | [place] | | | | | extremity | [address] | [address] | | | | | Procedures | Phone: | Phone: | | | | | REQUEST TO | [phone] | [phone] | | | | | SURGERY | Fax: | Fax: | | | | | PERSONAL LOAN SPECIALIST | [phone] | [phone] | +--------+---------+ + + + + Reason [...] | | | | | Procedures | [place], [place] | [place], | | | | | CONSULT TO | [address] | [place] | | | | | PAIN | | [address] | | | | | MANAGEMENT | | Phone: | | | | | | | [phone] | | | | | | | Fax: | | | | | | | [phone] | +--------+--------+ + + + + Encounter Details +--------+---------+ + + + | Date | Type | Department | Care Team | Description | +--------+---------+ + + + | 10/09/ | Office | [facility] | Alex Sanchez, | Complex regional | | 2018 | Visit | Pain Center at | ,PhD [address] | pain syndrome type 1 | | | | [facility] | [facility] [address] | of left lower | | | | [address] | [place], [place] | extremity (Primary | | | | [place] for [facility] | [address] | Dx) | | | | and Healing, | [phone] | | | | | | | | | | | Floor [place], [place] | | | | | | [address] | | | | | | [phone] | | | +--------+---------+ + + + [...] an external order to see a senior tax specialist today. Please p resent this referral [...] insurance. PRE-PROCEDURE INSTRUCTIONS 1. Please bring a bus [...] or blood thinning medications (other than aspirin), [facility] doctor who is doing your procedure will communicate with the provider who is prescribing y our anticoagulant therapy. If you do not have clear instructions on what to do with your an ticoagulant by 2 weeks before your procedure, please contact [facility] to cl arify your instructions. The phone number for questions or concerns is [phone]. documented in this encounter Progress Notes Alex [...] notes. Alex Sanchez MD,PhD Comprehensive [facility] Count In[facility] signed by Alex Sanchez MD,PhD at [...] [facility] [place] was September 28, 2018, for a clinic visit with Yun Frey NP. At that time our plans were: Recommendations/Plan: 1. Recommend to keep her appointment with Dr. Sanchez on 10/02/2018. 2. To contact the [facility]'s rep if she has any further question [...] She went into the emergency room in [place], [place] where they rem cady the leads. [...] which she suspects also used dissolvable stitches. BIOFUELS PRODUCTION MANAGER Brief Pain Inventory: (ten= worst possible [...] a light load. Has been working at [employer] / ?.??, can' t work on [employer]. Has roommates. Allergies Allergen Reactions Morphine Anaphylaxis [...] the vein (IV) every eight hour s. 8215-7541-64 COMPOUNDED MED RX CONTROLLED (SEE ADMIN INSTRUCT [...] by physician. Concentration is 150mg/mL. Compounded by Purch ( [phone]) KETOROLAC IM Inject into the muscle (IM). [...] (IV) every twel ve hours as needed. 6269-6673-72 ONDANSETRON 4 MG DISINTEGRATING TABLET Dissolve 1 [...] and summary of old medical records (source: [employer]), as summarized in the body of the [...] Key. Arben Valerio MD PAIN C[facility] AT [facility] 15TH FLOOR [address] Mail Code: Ch15p [place] [address] [phone] signed by Alex Sanchez MD,PhD at 10/10/2018 9:27 AM [facility] umented in this encounter Plan of Treatment Not on filedocumented as of this encounter Visit Diagnoses + + | Diagnosis | + + | Complex regional pain syndrome type 1 of left lower extremity - Primary | + + documented in this encounter
--- OUTSIDE RECORDS SUMMARY | ~2020-05-26 | XMS | Encounter Summary ---
Demographics + + + | Address | [address] | | | [place] [address] | + + + | Home Phone [...] Providers + +------+ + | Care Business Performance Advisor Name | Role | Phone | [...] Medical Records | | 2017 | | [place] at [facility] [address] | MD Melissa | Review | | | | [address] [facility] | | | | | | for Health and | | | | | | [facility], [facility] 2 | | | | | | [place], [place] | | | | | | [address] | | | | | | [phone] | | | +--------+ + + + [...]
--- OUTSIDE RECORDS SUMMARY | ~2020-05-26 | XMS | Encounter Summary ---
Demographics + + + | Address | [address] | | | [place] [address] | + + + | Home Phone [...] Team Providers + +------+ + | Care Radiopharmacist Name | Role | Phone | + +------+ + | Justo Vazquez MD | PCP | | + +------+ + Encounter Details +--------+ + + + + | Date | Type | Department | Care Team | Description | +--------+ + + + + | 10/09/ | Telephone | [facility] | Alex Sanchez, | | | 2018 | | Pain Center at | ,PhD [address] | | | | | [facility] | [address] | | | | | [address] | [place], [place] | | | | | [place] for [facility] | [address] | | | | | and Healing, | [phone] | | | | | | | | | | | Floor [place], [place] | | | | | | [address] | | | | | | [phone] | | | +--------+ + + + [...]
--- OUTSIDE RECORDS SUMMARY | ~2020-05-26 | XMS | Encounter Summary ---
Demographics + + + | Address | [address] | | | [place] [address] | + + + | Home Phone [...] | 2016 | Encounter | Center at [facility] [address] | | results | | | | [address] [facility] | | | | | | for Health and | | | | | | Healing, Building 2 | | | | | | [place], [place] | | | | | | [address] | | | | | | [phone] | | | +--------+ + + + [...]
--- OUTSIDE RECORDS SUMMARY | ~2020-05-26 | XMS | Encounter Summary ---
Demographics + + + | Address | [address] | | | [place] [address] | + + + | Home Phone [...] Team Providers + +------+ + | Care Splicing Supervisor Name | Role | Phone | + +------+ + | Jsuto Vazquez MD | PCP | | + +------+ + Encounter Details +--------+ + + + + | Date | Type | Department | Care Team | Description | +--------+ + + + + | 12/12/ | Telephone | [facility] | Alex Sanchez, | | | 2019 | | Pain Center at | ,PhD [address] | | | | | [facility] | [address] | | | | | [address] | [place], [place] | | | | | [place] for [facility] | [address] | | | | | and Healing, | [phone] | | | | | | | | | | | Floor [place], [place] | | | | | | [address] | | | | | | [phone] | | | +--------+ + + + [...]
--- OUTSIDE RECORDS SUMMARY | ~2020-05-26 | XMS | Encounter Summary ---
Demographics + + + | Address | [address] | | | [place] [address] | + + + | Home Phone [...] Team Providers + +------+ + | Care Utilities Equipment Repairer Name | Role | Phone [...] | Encounter | Pain Center at | LABORER HEADING [address] | | | | | [facility] | [place], [place] | | | | | [address] | [address] | | | | | [place] for [facility] | [phone] | | | | | and Healing, | | | | | | | | | | | | Floor [place], [place] | | | | | | [address] | | | | | | [phone] | | | +--------+ + + + [...]
--- OUTSIDE RECORDS SUMMARY | ~2020-05-26 | XMS | Encounter Summary ---
Demographics + + + | Address | [address] | | | [place] [address] | + + + | Home Phone [...] Team Providers + +------+ + | Care Room Service Waiter Name | Role | Phone | + [...] [place] | | | | | | [address] | | | +--------+ + + + [...]
--- OUTSIDE RECORDS SUMMARY | ~2020-05-26 | XMS | Encounter Summary ---
Demographics + + + | Address | [address] | | | [place] [address] | + + + | Home Phone [...] Providers + +------+ + | Care Production Support Analyst Name | Role | Phone [...] | | | | regional | ,PhD [address] | | | | | | pain | [address] | | | | | | syndrome | [address] | | | | | | type 1 of | Rd | | | | | | left lower | [place], [place] | | | | | | extremity | [address] | | | | | | Other | Phone: | | | | | | chronic pain | [phone] | | | | | | S/P | Fax: | | | | | | insertion of | [phone] | | | | | | spinal [...] | | | | regional | ,PhD [address] | | | | | | pain | [address] | | | | | | syndrome | [address] | | | | | | type 1 of | Rd | | | | | | left lower | [place], [place] | | | | | | extremity | [address] | | | | | | Other | Phone: | | | | | | chronic pain | [phone] | | | | | | S/P | Fax: | | | | | | insertion of | [phone] | | | | | | spinal [...] + + | 04/26/ | Telephone | [facility] | Alex Sanchez, | | | 2019 | | Pain Center at | ,PhD [address] | | | | | [facility] | [address] | | | | | [address] | [place], [place] | | | | | [facility] | [address] | | | | | and Healing, | [phone] | | | | | | | | | | | Floor [place], [place] | | | | | | [address] | | | | | | [phone] | | | +--------+ + + + [...]
--- OUTSIDE RECORDS SUMMARY | ~2020-05-26 | XMS | Encounter Summary ---
Demographics + + + | Address | [address] | | | [place] [address] | + + + | Home Phone [...] | | 2017 | | Center at [facility] [address] | | Review | | | | [address] [facility] | | | | | | for Health and | | | | | | [facility] 2 | | | | | | [place], [place] | | | | | | [address] | | | | | | [phone] | | | +--------+ + + + [...]
--- OUTSIDE RECORDS SUMMARY | ~2020-05-26 | XMS | Encounter Summary ---
Demographics + + + | Address | [address] | | | [place] [address] | + + + | Home Phone [...] Team Providers + +------+ + | Care Polarity Tester Name | Role | Phone | [...] | | | regional | [place] | [address] | | | | | pain | FAMILY | [address] | | | | | syndrome), | MEDICINE P | [address] | | | | | lower limb | [address] | [place], [place] | | | | | Gait | [place], | [address] | | | | | disturbance | [place] [address] | Phone: | | | | | Muscle pain | Phone: | [phone] | | | | | Procedures | [phone] | Fax: | | | | | REQUEST TO | Fax: | [phone] | | | | | SURGERY | [phone] | | | | | | CAR OILER | | | +--------+--------+ + + + + Encounter Details +--------+ + + + + | Date | Type | Department | Care Team | Description | +--------+ + + + + | 03/01/ | Procedure | Pain Center at [facility] | Dale Cantu, | Foot pain (left); | | 2011 | | [address] | [address] | Procedure | | | | Center for Health | [address] | | | | | and Healing, | [place], [place] | | | | | [facility] | [address] | | | | | Floor [place], [place] | [phone] | | | | | [address] | | | | | | [phone] | | | +--------+ + + + [...] migh t be different from the original. [facility] Patient Instructions - Post Interventional Procedure Date: 03/01/2012 Name: Tracie Farah Date of : 1990 Procedure Performed: LUMBAR SYMPATHETIC BLOCK. Procedure Provider: Dale Cantu If you have any problems you believe are associated with your procedure tonight, Please call the Hospital Can Technician, and ask for the Pain Management Consu ltant. If you have problems or questions between 9:00 am and 4:00 pm, Please call the [facility] Nurse Triage Line, . If you go [...] I reviewed the documentation of the other EXTRUSION DIE REPAIR MANAGER providers and concur with Dr. Herring's findings. [...] benefit from multidisciplinary treatment. DALE CANTU MD Scrap Metal Burner, [facility] Push Button Switch Assembler, Pain Medicine Professor, Anesthesiology & Perioperative Medicine NAEiDiana scott RN - 03/01/2012 1:35 PM PDT PRE-SEDATION: Date: March 01, 2012 Tracie Farah [id number] 1990 ALLERGIES: Morphine Previous reaction to Sedation/Analgesia: MEDICATIONS: Current Outpatient Prescriptions Medication DULoxetine (CYMBALTA) 30 mg Oral Capsule, Delayed Release(E.C.) HYDROcodone-acetaminophen (NORCO) 10-325 mg Oral Tablet levonorgestrel (MIRENA) 20 mcg/24 hr Intrauterine IUD LORazepam 1 mg Oral Tablet promethazine 25 mg Oral Tablet Meets NPO Guidelines. IV ACCESS: IV in Place IV Start Time 61056, 22g, DRH BASELINE VS: See Sedation Flow Sheet. Tracie Farah [id number] 1990, presents to clinic for: Procedure: Lumbar [...] ml. 1344: Procedure complete. Pt returned to [place] 1 per man in stable condiotion. IV [...] OPERATIVE NOTE Date: March 01, 2012 Location: [facility] Procedure Room Tracie Donaldson [facility] [id number] :1990, presents to clinic for: PROCEDURE: Lumbar sympathetic block LEVEL/LATERALITY: left L3 PRE-OPERATIVE DIAGNOSIS: 355.71B CRPS (complex regional pain syndrome), lower limb 719.46 Pain in joint, lower leg POST-OPERATIVE DIAGNOSIS: 355.71B CRPS (complex regional pain syndrome), lower limb 719.46 Pain in joint, lower leg ATTENDING PHYSICIAN: Dale Cantu BREAKER BOSS: Fellow Lakeisha Herring MD ANESTHESIA: sedation delivered [...] compromise. Ms. Farah was transported to the [facility] Comprehensive Pain Center post-procedure recovery area [...] block. Images were saved, and sent to [employer]. Ms. Farah will have her next appointment [...] + +--------+ + + + | [place] INJECT NERV | Routin | 03/01/2012 | CRPS (complex | | | BLCK,PARAVERT | e | 2:20 PM | regional pain | | | SYMPATH | | PDT | syndrome), lower | | | | | | limb Pain in joint, | | | | | | lower leg | | + +--------+ + + + | [place] LOCM 100-199 | Routin | 03/01/2012 | CRPS (complex | | | MG/MLICON | e | 1:53 PM | regional pain | | | | | PDT | syndrome), lower | | | | | | limb Pain in joint, | | | | | | lower leg | | + +--------+ + + + | [place] INJ BUPIVACAINE | Routin | 03/01/2012 | [...]
--- OUTSIDE RECORDS SUMMARY | ~2020-05-26 | XMS | Encounter Summary ---
Demographics + + + | Address | [address] | | | [place] [address] | + + + | Home Phone [...] Team Providers + +------+ + | Care Agency Sales Management Assistant Name | Role | Phone | + +------+ + | Justo Vazquez MD | PCP | | + +------+ + Encounter Details +--------+ + + + + | Date | Type | Department | Care Team | Description | +--------+ + + + + | 01/06/ | Document-Ia | [facility] | Alex Sanchez, | | | 2018 | annemily | Pain Center at | ,PhD [address] | | | | | [facility] | [address] | | | | | [address] | [place], [place] | | | | | [place] for [facility] | [address] | | | | | and Healing, | [phone] | | | | | | | | | | | Floor [place], [place] | | | | | | [address] | | | | | | [phone] | | | +--------+ + + + [...]
--- OUTSIDE RECORDS SUMMARY | ~2020-05-26 | XMS | Encounter Summary ---
Demographics + + + | Address | [address] | | | [place] [address] | + + + | Home Phone [...] Team Providers + +------+ + | Care Electroslag Welding Machine Operator Name | Role | Phone [...] | | Pain Center at | ,PhD [address] | denied) | | | | [facility] | [facility] | | | | | [address] | [place], [place] | | | | | [facility] | [address] | | | | | and [place]ina, | [phone] | | | | | [facility] | | | | | | Floor [place], [place] | | | | | | [address] | | | | | | [phone] | | | +--------+ + + + [...]
--- OUTSIDE RECORDS SUMMARY | ~2020-05-26 | XMS | Encounter Summary ---
Demographics + + + | Address | [address] | | | [place] [address] | + + + | Home Phone [...] Providers + +------+ + | Care Retail And Promotions Coordinator Name | Role | Phone | + +------+ + | Justo Vazquez MD | PCP | | + +------+ + Encounter Details +--------+ + + + + | Date | Type | Department | Care Team | Description | +--------+ + + + + | 09/20/ | Telephone | [facility] | Ilene Bright, | | | 2017 | | Pain Center at | FIRE OFFICER [address] | | | | | [facility] | [place], [place] | | | | | [address] | [address] | | | | | [place] for [facility] | [phone] | | | | | and Healing, | | | | | | | | | | | | Floor [place], [place] | | | | | | [address] | | | | | | [phone] | | | +--------+ + + + [...]
--- OUTSIDE RECORDS SUMMARY | ~2020-05-26 | XMS | Encounter Summary ---
Demographics + + + | Address | [address] | | | [place] [address] | + + + | Home Phone [...] Team Providers + +------+ + | Care Golf Tournament Consultant Name | Role | Phone | + +------+ + | Justo Vazquez MD | PCP | | + +------+ + Encounter Details +--------+ + + + + | Date | Type | Department | Care Team | Description | +--------+ + + + + | 03/23/ | MyChart | [facility] | Ilene Bright, | Welcome | | 2017 | Encounter | Pain Center at | SHIPWRIGHT [address] | | | | | [facility] | [place], [place] | | | | | [address] | [address] | | | | | [place] for [facility] | [phone] | | | | | and Healing, | | | | | | | | | | | | Floor [place], [place] | | | | | | [address] | | | | | | [phone] | | | +--------+ + + + [...]
--- OUTSIDE RECORDS SUMMARY | ~2020-05-26 | XMS | Encounter Summary ---
Demographics + + + | Address | [address] | | | [place] [address] | + + + | Home Phone [...] Providers + +------+ + | Care Visual Merchandising Specialist Name | Role | Phone | [...] [address] | | | | | [facility] | [facility], | | | | | [address] | [place] [address] | | | | | [facility] | [phone] | | | | | and Healing, | | | | | | Building | | | | | | [place], [place] | | | | | | [address] | | | | | | [phone] | | | +--------+ + + + [...]
--- OUTSIDE RECORDS SUMMARY | ~2020-05-26 | XMS | Encounter Summary ---
Demographics + + + | Address | [address] | | | [place] [address] | + + + | Home Phone [...] Providers + +------+ + | Care Dispatcher Chief Oil Name | Role | Phone | + [...] | | 2016 | | Center at [facility] [address] | | severe stomach Pain) | | | | [address] [facility] | | | | | | for Health and | | | | | | Healing, Building [address] | | | | | | [place], [place] | | | | | | [address] | | | | | | [phone] | | | +--------+ + + + [...]
--- OUTSIDE RECORDS SUMMARY | ~2020-05-26 | XMS | Encounter Summary ---
Demographics + + + | Address | [address] | | | [place] [address] | + + + | Home Phone [...] Providers + +------+ + | Care Foundry Hand Name | Role | Phone | [...] 2017 | | Center at [facility] [address] | | pain | | | | [address] [facility] | | | | | | for Health and | | | | | | Healing, Building [address] | | | | | | [place], [place] | | | | | | [address] | | | | | | [phone] | | | +--------+ + + + [...]
--- OUTSIDE RECORDS SUMMARY | ~2020-05-26 | XMS | Encounter Summary ---
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 | FAMILY | [address] | | | | | of lower | MEDICINE P | [address] | | | | | limb | [address] | [place], [place] | | | | | | [place], | [address] | | | | | | [place] [address] | Phone: | | | | | | Phone: | [phone] | | | | | | [phone] | Fax: | | | | | | Fax: | [phone] | | | | | | [phone] | | +--------+--------+ + + + + Encounter Details +--------+---------+ + + + | Date | Type | Department | Care Team | Description | +--------+---------+ + + + | 03/17/ | Office | [facility] | Dale Cantu, | CRPS (complex | | 2011 | Visit | Pain Center at | [address] | regional pain | | | | [place] | [address] [id number] | syndrome), lower | | | | [address] | [place], [place] | limb; Adjustment | | | | [place] for [facility] | [address] | reaction; Muscle | | | | and Healing, | [phone] | pain; Gait | | | | [facility] | | disturbance | | | | Floor [place], [place] | | | | | | [address] | | | | | | [phone] | | | +--------+---------+ + + + [...] Pain: After Your Visit", log into your [email or web address] nt at [email or web address]. You can enter [id number] in the [employer]) Library" search box. Not on Dwollat? Review the MyChart section of your After Visit Summary for directions on liz rea to sign up. 5236-3989 [employer]. Care instructions adapted under license by [facility] & [facility]. This care instruction is for use with your licensed healthcar e professional. If you have questions about a medical condition or this instruction, always ask your healthcare professional. [employer] disclaims any warranty or liabili ty for your use of this information. Content Version: 9.2.170814; Last Revised: April 29, 2011 Nortriptyline for [...] Pain: After Your Visit", log into your [email or web address] nt at [email or web address]. You can enter G828 in the [employer]" search box. Not on Archsy? Review the trueAnthemhart section of your After Visit Summary for directions on ho w to sign up. 5077-1203 [employer]. Care instructions adapted under license by [facility] & [employer]. This care instruction is for use with your licensed healthcar e professional. If you have questions about a medical condition or this instruction, always ask your healthcare professional. [employer] disclaims any warranty or liabili ty for your use of this information. Content Version: 9.2.789217; Last Revised: April 29, 2011 documented in [...] documented in our notes. DALE CANTU MD Egg Crater, [facility] Dough Catcher, Pain Medicine Professor, Anesthesiology & Perioperative Medicine NAMollMarquis manriquez MD - 03/17/2012 3:42 PM PDT [facility] Pain Center Return Visit with [...] her pain. She continues to take 6-8 Bell[place] per day and 600 mg of ibuprofen [...] you require any medication refills today? no PRECIPITATION EQUIPMENT TENDER ROS: 1. Bones, Joints, and Muscles: cramps [...]
--- OUTSIDE RECORDS SUMMARY | ~2020-05-26 | XMS | Encounter Summary ---
Demographics + + + | Address | [address] | | | [place] [address] | + + + | Home Phone [...] Providers + +------+ + | Care Waste Minimization Technician Name | Role | Phone | [...] | 2017 | | Center at [facility] [address] | MD Melissa | Marker instructions) | | | | [address] [facility] | | | | | | for Health and | | | | | | Healing, Building [address] | | | | | | [place], [place] | | | | | | [address] | | | | | | [phone] | | | +--------+ + + + [...]
--- OUTSIDE RECORDS SUMMARY | ~2020-05-26 | XMS | Encounter Summary ---
Demographics + + + | Address | [address] | | | [place] [address] | + + + | Home Phone [...] Providers + +------+ + | Care Water Tanker Driver Name | Role | Phone | [...] 2017 | | Pain Center at | MEDICAL SUPERVISOR [address] | | | | | [facility] | [place], [place] | | | | | [address] | [address] | | | | | [facility] | [phone] | | | | | and Healing, | | | | | | Building | | | | | | [facility] [place] | | | | | | [address] | | | | | | [phone] | | | +--------+ + + + [...]
--- OUTSIDE RECORDS SUMMARY | ~2020-05-26 | XMS | Encounter Summary ---
Demographics + + + | Address | [address] | | | [place] [address] | + + + | Home Phone [...] Providers + +------+ + | Care Cable Tester Name | Role | Phone | [...] Encounter | at [facility] [address] | | | | | | [address] | | | | | | [address], | | | | | | [place], | | | | | | [place] [address] | | | | | | [phone] | | | +--------+ + + + [...]
--- OUTSIDE RECORDS SUMMARY | ~2020-05-26 | XMS | Encounter Summary ---
Demographics + + + | Address | [address] | | | [place] [address] | + + + | Home Phone [...] Providers + +------+ + | Care Glass Decorator Name | Role | Phone | + +------+ + | Justo Vazquez MD | PCP | | + +------+ + Encounter Details +--------+ + + + + | Date | Type | Department | Care Team | Description | +--------+ + + + + | 09/25/ | Hospital | Radiology/Imaging | Aleta Rebollar MD [address] | | | 2018 | Encounter | Lab at [facility] [address] | [address] | | | | | [address] [facility] for | [place], [place] | | | | | Health and Healing, | [address] | | | | | [address] | [phone] | | | | | Floor [place], [place] | | | | | | [address] | | | | | | [phone] | | | +--------+ + + + [...]
--- OUTSIDE RECORDS SUMMARY | ~2020-05-26 | XMS | Encounter Summary ---
Demographics + + + | Address | [address] | | | [place] [address] | + + + | Home Phone [...] Team Providers + +------+ + | Care Sow Farm Barn Technician Name | Role | Phone | [...] | [facility] [address] | | | | | regional | ,PhD [address] | Pavilion | | | | | pain | [address] | [address] | | | | | syndrome | [address] | [address], | | | | | type 1 of | Rd | Basement | | | | | left lower | [place], [place] | [place], [place] | | | | | extremity | [address] | [address] | | | | | Muscle pain | Phone: | Phone: | | | | | Procedures | [phone] | [phone] | | | | | NM BONE | Fax: | Fax: | | | | | &/OR JOINT | [phone] | [phone] | | | | | IMAGING | [...] | | 2018 | Encounter | at [facility] [address] | ,PhD [address] [facility] | | | | | [address] | [address] | | | | | [address], | [place], [place] | | | | | [facility], | [address] | | | | | [place] [address] | [phone] | | | | | [phone] | | | +--------+ + + + [...]
--- OUTSIDE RECORDS SUMMARY | ~2020-05-26 | XMS | Encounter Summary ---
Demographics + + + | Address | [address] | | | [place] [address] | [...] Team Providers + +------+ + | Care Relations Liaison Name | Role | Phone | [...] | | Pain | Complex | Ilene, FOUNDER CHAIRMAN AND CHIEF CREATIVE OFFICER | Catriona M, | | | | Management | regional | [address] | PSY D [address] | | | | | pain | Ave | [address] | | | | | syndrome | [place], [place] | [place], [place] | | | | | type 1 of | [address] | [address] Phone: | | | | | left lower | Phone: | [phone] | | | | | extremity | [phone] | Fax: | | | | | Intractable | Fax: | [phone] | | | | | cyclical | [phone] | | | | | | vomiting [...] | | | | | | IN | | | | | | | PSYCHIATRIC | | | | | | | DIAGNOSTIC | | | | | | | EVAL, NO MED | | | | | | | SVCS IN | | | | | | | PSYCH TSTNG | | | | | | | PSYCH/PHYS | | | | | | | IN | | | | | | | PSYCHOTHERAP | | | | | | | Y, 45 MIN | | | +--------+---------+ + + + + Encounter Details +--------+---------+ + + + | Date | Type | Department | Care Team | Description | +--------+---------+ + + + | 10/11/ | Office | Pain Center at [facility] | Jamel Bravo, | 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 [address] | with mixed anxiety | | | | Center for Health | [place], [place] | and depressed mood | | | | and Healing, | [address] | (Primary Dx); | | | | | [phone] | Complex regional | | | | Floor [place], [place] | | pain syndrome type 1 | | | | [address] | | of left lower | | | | [phone] | | extremity; Abdominal | | | [...] who lives with her paren ts in [place], [place]. The patient was referred for pain [...] by physician. Concentration is 150mg/mL. Compounded by [facility] ([phone]), Disp: , Rfl: 5 lamoTRIgine 200 mg [...] oral recon soln, Take as directed by [facility]- 2 gallon bowel prep, [...] e. She reported doing some of the broke handler. For enjoyment the patient watches TV, reads, [...] time I spent was approximately 50 minutes bieq-up-yrxl with the patient and approxima tely 1 hour 40 minutes of cbb-epwx-vd-face testing, interpreting and synthesizing results. Jamel Bravo, PhD [facility] AT [facility] 15TH F[address] [facility] Mail Code: Ch15p [place] [address] documented in this en counter [...]
--- OUTSIDE RECORDS SUMMARY | ~2020-05-26 | XMS | Encounter Summary ---
Demographics + + + | Address | [address] | | | [place] [address] | + + + | Home Phone [...] Providers + +------+ + | Care Commercial Credit Head Name | Role | Phone | + +------+ + | Justo Vazquez MD | PCP | | + +------+ + Encounter Details +--------+ + + + + | Date | Type | Department | Care Team | Description | +--------+ + + + + | 12/28/ | Ceramic Plater | [facility] | Alex Sanchez, | Arthralgia of lower | | 2018 | | Pain Center at | ,PhD [address] | leg, unspecified | | | | [facility] | [address] | laterality (Primary | | | | [address] | [place], [place] | Dx) | | | | Center for Health | [address] | | | | | and Healing, | [phone] | | | | | | | | | | | Floor [place], [place] | | | | | | [address] | | | | | | [phone] | | | +--------+ + + + [...]
--- OUTSIDE RECORDS SUMMARY | ~2020-05-26 | XMS | Encounter Summary ---
Demographics + + + | Address | [address] | | | [place] [address] | + + + | Home Phone [...] Team Providers + +------+ + | Care File Drawer Finisher Name | Role | Phone | [...] 2016 | | Pain Center at | BUS ANALYST [address] | | | | | [facility] | [place], [place] | | | | | [address] | [address] | | | | | [facility] | [phone] | | | | | and Healing, | | | | | | [facility] | | | | | | [place], [place] | | | | | | [address] | | | | | | [phone] | | | +--------+ + + + [...]
--- OUTSIDE RECORDS SUMMARY | ~2020-05-26 | XMS | Encounter Summary ---
Demographics + + + | Address | [address] | | | [place] [address] | + + + | Home Phone [...] | | 2017 | anned | Services [address] | | | | | | [address] | | | | | | Mailcode: [id number] | | | | | | [facility] | | | | | | [place], [place] | | | | | | [address] | | | | | | [phone] | | | +--------+ + + + [...]
--- OUTSIDE RECORDS SUMMARY | ~2020-05-26 | XMS | Encounter Summary ---
Demographics + + + | Address | [address] | | | [place] [address] | + + + | Home Phone [...] Team Providers + +------+ + | Care Biscuit Packer Name | Role | Phone | + +------+ + | Justo Vazquez MD | PCP | | + +------+ + Encounter Details +--------+ + + + + | Date | Type | Department | Care Team | Description | +--------+ + + + + | 05/05/ | Documentati | [facility] | Alex Sanchez, | | | 2018 | on | Pain Center at | ,PhD [address] | | | | | [facility] | [address] | | | | | [address] | [place], [place] | | | | | [place] for [facility] | [address] | | | | | and Healing, | [phone] | | | | | | | | | | | Floor [place], [place] | | | | | | [address] | | | | | | [phone] | | | +--------+ + + + [...]
--- OUTSIDE RECORDS SUMMARY | ~2020-05-26 | XMS | Encounter Summary ---
Demographics + + + | Address | [address] | | | [place] [address] | + + + | Home Phone [...] Providers + +------+ + | Care Gear Hobber Operator Name | Role | Phone | [...] 2016 | | Pain Center at | ENGINE ROOM OPERATOR [address] | | | | | [facility] | [place], [place] | | | | | [address] | [address] | | | | | [facility] | [phone] | | | | | and Healing, | | | | | | [facility] | | | | | | [place], [place] | | | | | | [address] | | | | | | [phone] | | | +--------+ + + + [...]
--- OUTSIDE RECORDS SUMMARY | ~2020-05-26 | XMS | Encounter Summary ---
Demographics + + + | Address | [address] | | | [place] [address] | + + + | Home Phone [...] Providers + +------+ + | Care Clothing Room Supervisor Name | Role | Phone | [...] | Diagnoses | Beulah | Edu Pt Tug Captain | | | | Therapy | CRPS | Janak Martinez MD | [address] | | | | | (complex | [address] | | | | | regional | [address] | Mailcode: | | | | | pain | Mailstop | [facility] | | | | | syndrome), | [address] | for Health | | | | | lower limb | [place], [place] | and Healing, | | | | | Gait | [address] | Building 1 | | | | | disturbance | Phone: | [place], [place] | | | | | Muscle pain | [phone] | [address] | | | | | Procedures | Fax: | Phone: | | | | | PHYSICAL | [phone] | [phone] | | | | | THERAPY | [...] | | | | [place] | [place] [address] | syndrome), lower | | | | [address] | [phone] | limb (Primary Dx) | | | | [facility] | | | | | | and Healing, | | | | | | Building 1, | | | | | | Floor [place], [place] | | | | | | [address] | | | | | | [phone] | | | +--------+---------+ + + + [...] might be different f rom the original. [id number] BRODY FARAH Date of : 1990 Start of care: 02/14/2012 Date of onset: 02/14/2012 Referring/Attending Practitioner: Janak Riojas MD . Primary/Referral Diagnosis/ICD-9: 355.71B CRPS (complex regional pain syndrome), lower limb Insurance: Payor: [facility] [employer] [facility] Plan: BCBS OUT OF STATE Product Type: PP O Service period from: 02/14/2012 to: 08/12/2012 Number visits used/authorized: 11/25 [facility] PHYSICAL THERAPY INITIAL EVALUATION SUBJECTIVE: Age: [...] no pain relief. Admitted to the inpatient [facility] program for 1 month in the [...] Diagnostic evaluation: Records from CRPS program at [facility]. Suggest three phase bone sca [...] employed by the psychologists here at the [facility]. 2.2 Physical therapy can [...] and hemr oidectomy. Social History: lives in [place], 22 years old, not working currently, in [...] or concerns about therapy: she lives in [place]. She is r equesting family members or [...] provided with a token and bocanegra for [facility] site. Treatment began: 1345hrs Treatment ended: 1430hrs Manual therapy: 0min Therapeutic exercise: 15 min ASSESSMENT: pt presents with 10-year history of ankle pain post trauma and multiple surgeri es. She thinks she developed CRPS in 2004. She was diagnosed with CRPS and spent a month in the program at [facility] working through aggressive desensitization and activation which prov ided no lasting benefit. She lives in [place], is going to school, and ambulates with [...] She can work with her PT in [place]. CLINICAL PRIORITIES: 1-follow up with Dr Riojas [...] change in their status. Guillermo Sanon MSPT [facility] Outpatient Rehabilitation Services Mailcode: Ch3p [address] [facility], [address] [facility] [address] documented in this encounter Plan of Treatment Not on filedocumented as of this encounter Procedures + +--------+ + + + | Procedure Name | Priori | Date/Time | Associated Diagnosis | Comments | | | ty | | | | + +--------+ + + + | SD THERAPEUTIC | Routin | 02/16/2012 | CRPS (complex | | | EXERCISES | e | 3:34 PM | regional pain | | | | | PDT | syndrome), lower | | | | | | limb | | + +--------+ + + + | SD PHYS THERAPY | Routin | 02/16/2012 | [...]
--- OUTSIDE RECORDS SUMMARY | ~2020-05-26 | XMS | Encounter Summary ---
Demographics + + + | Address | [address] | | | [place] [address] | + + + | Home Phone [...] + +------+ + | Care Head Of Store Operations Name | Role | Phone | [...] [place] | | | | | | [address] | | | | | | [phone] | | | +--------+ + + + [...]
--- OUTSIDE RECORDS SUMMARY | ~2020-05-26 | XMS | Encounter Summary ---
Demographics + + + | Address | [address] | | | [place] [address] | + + + | Home Phone [...] Providers + +------+ + | Care Instrument Setter Name | Role | Phone | [...] 2015 | | Center at [facility] [address] | MD [address] | | | | | S [facility] | | | | | | for Health and | | | | | | Healing, Building 2 | | | | | | [place], [place] | | | | | | [address] | | | | | | [phone] | | | +--------+ + + + [...]
--- OUTSIDE RECORDS SUMMARY | ~2020-05-26 | XMS | Encounter Summary ---
Demographics + + + | Address | [address] | | | [place] [address] | + + + | Home Phone [...] Providers + +------+ + | Care Automation Control Technician Name | Role | Phone [...] | | Management | Chronic | Allegra Nieot, | Dale Martinez MD | | | | | pain Reflex | PA | [address] | | | | | sympathetic | [place] | [address]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 | FAMILY | Mailstop | | | | | of lower | MEDICINE P | [address] | | | | | limb | [address] | [place], [place] | | | | | | [place], | [address] | | | | | | [place] [address] | Phone: | | | | | | Phone: | [phone] | | | | | | [phone] | Fax: | | | | | | Fax: | [phone] | | | | | | [phone] | | +--------+--------+ + + + + Encounter Details +--------+---------+ + + + | Date | Type | Department | Care Team | Description | +--------+---------+ + + + | 08/04/ | Office | [facility] | Dale Cantu, | CRPS (complex | | 2011 | Visit | Pain Center at | MD [address] [facility] | regional pain | | | | [facility] | [facility] [id number] | syndrome), lower | | | | [address] | [place], [place] | limb (Primary Dx) | | | | [place] for Health | [address] | | | | | and Healing, | [phone] | | | | | Building | | | | | | Floor [place], [place] | | | | | | [address] | | | | | | [phone] | | | +--------+---------+ + + + [...] evaluated the patient with Fellow Nhan Guo [facility], who conducted the initial history. I reviewed the history in det ail and edited his note. I was present for the examination and formulation portions of the encounter. I agree with the findings and the plan of care as documented in our notes. DALE CANTU MD Butter Fat Tester, [facility] Claims Administrator, Pain Medicine Professor, Anesthesiology & Perioperative [...] physical activity and social withdrawal enok Gutierrez, [facility] - 08/04/2012 7:25 AM PDTFormatting of this note might be different from the origi nal. [facility] Return Visit with Dr. [...] has been treated at the [facility] for lower limb pain with the [...] and a pain drawing which I reviewed. [facility] Brief Pain Inventory: (ten= worst [...] obtained by the [facility] was reviewed. Additional Review of Systems: 1. [...] multiple programs with both [facility] and [facility] programs, however it appears that it does [...] bath today, OK to shower. HENOK GUO [facility] documented in this en counter Plan of Treatment Not on filedocumented as of this encounter Visit Diagnoses + + | Diagnosis | + + | CRPS (complex regional pain syndrome), lower limb - Primary Causalgia of lower limb | + + documented in this encounter
--- OUTSIDE RECORDS SUMMARY | ~2020-05-26 | XMS | Encounter Summary ---
Demographics + + + | Address | [address] | | | [place] [address] | + + + | Home Phone [...] Providers + +------+ + | Care Thread Spinner Name | Role | Phone | [...] | Pain | Complex | Ilene, MANAGER EPIC | Hanna M, | | | | Management | regional | [address] | PSY D [address] | | | | | pain | Ave | [address] | | | | | syndrome | [place], [place] | [place], [place] | | | | | type 1 of | [address] | [address] Phone: | | | | | left lower | Phone: | [phone] | | | | | extremity | [phone] | Fax: | | | | | Intractable | Fax: | [phone] | | | | | cyclical | [phone] | | | | | | vomiting [...] Pain Medicine | Diagnoses | Chasity, | Multiple Drum Sander Chh1 | | | | / Pain | Abdominal | MD Kenny | [address] | | | | Management | pain, | [address] [facility] | [facility] | | | | | unspecified | [facility] | for Health | | | | | location | Rd | and Healing, | | | | | Procedures | [place], [place] | [facility] | | | | | CONSULT TO | [address] | 1,15th Floor | | | | | PAIN | | [facility] [place] | | | | | MANAGEMENT | | [address] | | | | | | | Phone: | | | | | | | [phone] | | | | | | | Fax: | | | | | | | [phone] | +--------+--------+ + + + + Encounter Details +--------+---------+ + + + | Date | Type | Department | Care Team | Description | +--------+---------+ + + + | 04/25/ | Office | [facility] | Ilene Bright, | Abdominal pain, | | 2017 | Visit | Pain Center at | MANAGER EPIC [address] | unspecified location | | | | [facility] | [place], [place] | (Primary Dx); | | | | [address] | [address] | Complex regional | | | | [place] for [facility] | [phone] | pain syndrome type 1 | | | | and Healing, | | of left lower | | | | Building 1[address]15 | | extremity; | | | | Floor [place], [place] | | Intractable cyclical | | | | [address] | | vomiting with | | | | [phone] | | nausea; | | | | [...] Patient Instructions Patient Instructions Ilene Bright, MANAGER EPIC - 04/25/2017 1:35 PM PDTKelly, Nice to [...] Freddie Guadalupe MD [email or web address] Ilene Childs DNP, MANAGER EPIC-C [facility] [address] [place] [address] documented in this encounter Progress Notes Ilene Bright FNP - 04/25/2017 1:35 PM PDTFormatting of this note might be different fr om the original. Date: 04/25/2017 was referred for pain management consultation by Kenny Gaspar MD [address] [place] [address] Reason for consult: abdominal pain Chief Complaint Patient presents with Abdominal pain Back pain History of Present Illness: Tracie Farah is a 26 year old female with a history of depression, complex regional pain syndrome (left lower extremity) for this she follows with a neurologist at [facility] in [place]. She has been stable on her current [...] (works better) Just started her on Celebrex (snf option) Intranasal ketamine Lamotrigine Memantine Ibuprofen Cymbalta 20 mg BID Cyclobenzaprine Her nonmedication treatment has not included acupuncture, etc due to limited income. She feels that the most effective treatments include: medication (toradol). lives in [place], [place] alone and with her children. She receives disability. does not have specific goals for today's appointment. [facility] QUESTIONNAIRE BRIEF PAIN 04/24/2017 Please rate how [...] has interfered with your sleep : 8 [facility] New Patient Questionnaire Responses 04/24/2017 What is [...] or to get rid of a hangover (eye-manager orange)? No Do you drink alcohol to decrease [...] Hemroidectomy Trial spinal cord stimulator leads 08/02/2012 [facility], Surgeon: Janak Riojas MD Cholecystectomy Appendectomy [...] History Social History Narrative Single. Goes to [employer] with a light load. Has been working at [employer], can' t work on [employer]. Has roommates. Allergies Allergen Reactions Morphine Anaphylaxis [...] by physician. Concentration is 150mg/mL. Compounded by [facility] ) LAMOTRIGINE 200 MG TABLET [...] ENTEROGRAPHY ABDOMEN AND PELVIS WWO CONTRAST Order: [id number] Performed: 01/31/2017 4:34 PM Status: Final result [...] 3:50 PM X-RAY ABDOMEN 1 VIEW Order: [id number] Performed: 03/19/2017 6:52 AM Status: Final result [...] and summary of old medical records (source: [employer]), as summarized in the body of the [...] possible opioid-sparing effects (Stevie Paulino et al.C Neumitra, (8):1655-70, 2007) and evidence that it can [...] TERESA-C [facility] [address] [place] [address] Display Progress Note in MyChart: No documented [...]
--- OUTSIDE RECORDS SUMMARY | ~2020-05-26 | XMS | Encounter Summary ---
Demographics + + + | Address | [address] | | | [place] [address] | + + + | Home Phone [...] Providers + +------+ + | Care Diamond Setter Name | Role | Phone | [...] | 2017 | | Center at [facility] [address] | MD [address] | Marker instructions) | | | | [address] [facility] | | | | | | for Health and | | | | | | Healing, Building 2 | | | | | | [place], [place] | | | | | | [address] | | | | | | [phone] | | | +--------+ + + + [...]
--- OUTSIDE RECORDS SUMMARY | ~2020-05-26 | XMS | Encounter Summary ---
Demographics + + + | Address | [address] | | | [place] [address] | + + + | Home Phone [...] Team Providers + +------+ + | Care Economics Department Chair Name | Role | Phone [...] | | | | | Ave Mailcode: [facility] | [place], [place] | | | | | [facility] | [address] | | | | | Health and Healing, | [phone] | | | | | [address] [address] | | | | | | [place], [place] | | | | | | [address] | | | | | | [phone] | | | +--------+ + + + [...] Discharge Instructions Instructions Darlin Doyle RN - 12/14/2016[facility]le Care Instructions after Colonoscopy You may resume [...] on weekends and holidays call the Hospital Client Support Associate toll free 1- [phone] Ext. [phone] or and have the GI doctor front edger paged. The provider who performed your procedure [...] Farah is a 26 y.o. female MR# [id number] presents today for colonoscopy NPO since midnight [...]
--- OUTSIDE RECORDS SUMMARY | ~2020-05-26 | XMS | Encounter Summary ---
Demographics + + + | Address | [address] | | | [place] [address] | + + + | Home Phone [...] Providers + +------+ + | Care Family Court Justice Name | Role | Phone | + +------+ + | Justo Vazquez MD | PCP | | + +------+ + Encounter Details +--------+ + + + + | Date | Type | Department | Care Team | Description | +--------+ + + + + | 10/03/ | Telephone | [facility] | Ilene Bright, | | | 2017 | | Pain Center at | ABRASIVE GRADER [address] | | | | | [facility] | [place], [place] | | | | | [address] | [address] | | | | | [place] for [facility] | [phone] | | | | | and Healing, | | | | | | | | | | | | Floor [place], [place] | | | | | | [address] | | | | | | [phone] | | | +--------+ + + + [...]
--- OUTSIDE RECORDS SUMMARY | ~2020-05-26 | XMS | Encounter Summary ---
Demographics + + + | Address | [address] | | | [place] [address] | + + + | Home Phone [...] Providers + +------+ + | Care Glass Artist Name | Role | Phone | + +------+ + | Justo Vazquez MD | PCP | | + +------+ + Encounter Details +--------+ + + + + | Date | Type | Department | Care Team | Description | +--------+ + + + + | 05/18/ | Telephone | [facility] | Alex Sanchez, | | | 2019 | | Pain Center at | ,PhD [address] | | | | | [facility] [place] | [address] | | | | | [address] | [place], [place] | | | | | [place] for [facility] | [address] | | | | | and Healing, | [phone] | | | | | | | | | | | Floor [place], [place] | | | | | | [address] | | | | | | [phone] | | | +--------+ + + + [...]
--- OUTSIDE RECORDS SUMMARY | ~2020-05-26 | XMS | Encounter Summary ---
Demographics + + + | Address | [address] | | | [place] [address] | + + + | Home Phone [...] Providers + +------+ + | Care Search Coordinator Name | Role | Phone | [...] | | | | | extremity | [address] | [address] | | | | | Muscle pain | Phone: | Phone: | | | | | Procedures | [phone] | [phone] | | | | | REQUEST TO | Fax: | Fax: | | | | | SURGERY | [phone] | [phone] | | | | | PILOT PLANT OPERATOR | | | | | | [...] 12/27/ | Procedure | Pain Center at [facility] | Alex Sanchez, | Pain in left leg; | | 2017 | | [address] | ,PhD [address] | Procedure | | | | Center for Health | [facility] | | | | | and Healing, | [place], [place] | | | | | [facility] | [address] | | | | | [place], [place] | [phone] | | | | | [address] | | | | | | [phone] | | | +--------+ + + + [...] your procedure tonight, Please call the Hospital Pharmaceutical Scientist, and ask for the Pain Management Consu ltant. If you have problems or questions between 9:00 am and 4:00 pm, Please call the [facility] Nurse Triage Line, . If [...] paper. Please fax the pain diary to [phone] or attach a scanned image of it to a [employer] message to your doct or.. The area [...] to the larry ent. David Linares MD [facility] documented in this encounter Progress Notes Alex Sanchez MD,PhD - 12/27/2017 3:00 PM PSTI was present for the entire procedure ( popliteal nerve block and abdominal scar neuroma injection) and all bocanegra elements of this vis it. I reviewed the documentation of the other BARREL ROLLER OPERATOR providers and concur with Dr. Linares's findings. I edited his note. Alex Sanchez MD,PhD Photoengraving Photographer Anesthesiology and Pain Management [facility] David Pennington MD - 12/27/2017 3:00 PM PSTPROVIDER OPERATIVE NOTE Date: December 27, 2017 Location: [facility] Procedure Room Tracie Farah [id number] :1990, presents to clinic for: PROCEDURE: Popliteal/sciatic [...] scar neuroma ATTENDING PHYSICIAN: Alex Sanchez MD,PhD NEWSPAPER REPORTER: Fellow David Linares MD ANESTHESIA: sedation Isadora [...] procedure. Images were saved, and sent to [employer]. Ms. Farah was transported to the [facility] [...] by physician. Concentration is 150mg/mL. Compounded by [facility] ) LEVONORGESTREL 20 MCG/24 HR (5 [...] GRAM SOLUTION Take as directed by [facility]- 2 gallon [...] PRE-SEDATION: Date: December 27, 2017 Tracie Farah [id number] 1990 ALLERGIES: Morphine Previous reaction to Sedation/Analgesia: [...] ride here with you? yes Who?: mother RN/FURNACE TAPPER History: 1. Has your pain changed from [...] Date: December 27, 2017 Tracie Ocampojulita Farah [id number] 1990 See RN /FURNACE TAPPER Pre-Sedation Note. IV ACCESS:Right subc PAC. BASELINE VS: See Sedation Flow Sheet. Tracie Donaldson Sofi [id number] 1990, presents to clinic for: Procedure: left [...] started. 1530 Midazolam 2mg IV given 1530 [id number] mcg IV given 1534 Midazolam 1mg IV given 1546 Midazolam 1mg IV given 1546 [id number] mcg IV given 1548 Fentanyl 100 mcg IV given bupivacaine 0.5%, 9mL given, 21mL wasted Kenalog 40mg/mL 1mL, 0 mL wasted 1555 abdominal scar trigger point completed. 1558 Fentanyl 50 mcg IV given 1601 Fentanyl 50 mcg IV given [place] placed for Popliteal Nerve Block.. Placement verified [...] + + documented in this encounter Results BARREL ROLLER OPERATOR MISC PROCEDURE (12/27/2017 3:28 PM PST) [...]
--- OUTSIDE RECORDS SUMMARY | ~2020-05-26 | XMS | Encounter Summary ---
Demographics + + + | Address | [address] | | | [place] [address] | + + + | Home Phone [...] Team Providers + +------+ + | Care Host Name | Role | Phone | [...] | | Pain Center at | ,PhD [address] | follow-up | | | | [facility] | [address] | | | | | [address] | [place], [place] | | | | | [facility] | [address] | | | | | and [place], | [phone] | | | | | Building | | | | | | Floor [place], [place] | | | | | | [address] | | | | | | [phone] | | | +--------+ + + + [...]
--- OUTSIDE RECORDS SUMMARY | ~2020-05-26 | XMS | Encounter Summary ---
Demographics + + + | Address | [address] | | | [place] [address] | + + + | Home Phone [...] Providers + +------+ + | Care Automobile Detailer Name | Role | Phone | [...] + + | 08/08/ | Emergency | [facility] Emergency | Mable Villarreal MD | | | 2015 | | Department [address] | [address] [facility] | | | | | [address] | [address] | | | | | [facility] | [place], [place] | | | | | [place], [place] | [address] | | | | | [address] | [phone] | | | | | [phone] | | | | | | | [...] about "Gastroparesis: Care Instructions", log into your [employer] account at [email or web address]). You can enter M106 in the [employer]" search box. Not on [employer]? Review the [employer] section of your After Visit Summary for directions on ho w to sign up. [id number] [employer]. Care instructions adapted under license by [facility] [employer]. This care instruction is for use with your licensed healthcar e professional. If you have questions about a medical condition or this instruction, always ask your healthcare professional. [employer] disclaims any warranty or liabili ty for your use of this information. Content Version: [id number]; Current as of: October 03, 2015 documented [...] | | | LABORATORY | | | CUBAN | | | SERVICES, | | | [...] | + + + + + | [facility] | [address] | [place] [address] | | | SERVICES, CORE | [address] [...] DEPT OF | [address] | [place], [place] | | | CARDIOLOGY | [address] | [address] | | + + + + + [...] | + + + + + | [facility] LABORATORY | [address] | [place] [address] | | | SERVICES, CORE | P[address] [...] LABORATORY | [address] | [place] [address] | | | SERVICES, LILLIAN | GUILLERMO [...] SHAH | [address] | [place] [address] | | | SERVICES, CORE | PARK [...] | + + + + + | [facility] | [address] | [place] [address] | | | [facility] | [address] | | | + + + + + URINE CULTURE WORKUP (08/08/2016 2:59 PM PDT) + + | Specimen | + + | Urine - Urine | + + + + + | Narrative | Performed At | + + + | Culture Report: Multiple organisms are present indicating probable | [facility] - | | contamination or colonization not related to infection. Further | [facility] - | | work-up of these organisms may result in clinically misleading | [facility] | | information due to the low numbers and /or mixture of organisms | | | present. Recollection is suggested if clinically indicated. | | + + + + + + + + | Performing | Address | City/State/Zipcode | Phone Number | | Organization | | | | + + + + + | [facility] | [address] | [place] [address] | | | [place] | | | | + + + [...] LABORATORY | [address] | [place] [address] | | | SERVICES, CORE | P[address] [...] | + + + + + | [facility] | [address] | [place] [address] | | | SERVICES, CORE | [address] | | | + + + + + LIPASE, PLASMA (08/08/2016 2:22 PM PDT) + +---------+ + + + | Component | Value | Ref Range | Performed | Pathologist | | | | | At | Signature | + +---------+ + + + | LIPASE | 116 (L) | 152 - 353 U/L | [facility] | | | (LAB) | [...] | + + + + + | [facility] | [address] | [place] [address] | | | SERVICES, CORE | [address] [...] | | | LABORATORY | | | CUBAN | | | SERVICES, | | | [...] | + + + + + | [facility] | [address] | [place] [address] | | | SERVICES, CORE | [address] | | | + + + + + ED INFORMATION EXCHANGE (08/08/2016 12:21 PM PDT) + + + + + + | Component | Value | Ref Range | Performed | Pathologist | | | | | At | Signature | + + + + + + | [facility] | [id number] | | COLLECTIVE | | | | [id number] | | MEDICAL | | | | [...] ------- ---- | | | 08/08/2016 12:21 [facility] and | | | [facility] [place] Emergency [address]. abd pain | | | 08/04/2016 03:50 [facility] | | | [place] Emergency ABD PAIN,VOMITING 06/26/2016 22:44 | | | [facility] [place] | | | Emergency -Acquired absence of other specified parts of | | | | | | digestive | | | tract | | | | | | -Gastroparesis | | | | | | -Unspecified abdominal pain | | | | | | -Gastro-esophageal reflux disease without | | | esophagitis | | | | | | -Other lead project manager (current) drug therapy [facility]2016 17:35 [facility] [place] [facility] | [facility] -abd pain, "I have gastroparesis", since , seen | | | | | | at [facility] | | | [facility] yesterday. has been to the er | | | | | | several times | | | | | | -Abdominal Pain | | | | | | -Gastroparesis 06/19/2016 | | | 04:51 [facility] [place] | | | [place] Emergency -Gastroparesis | | | | | | -Unspecified abdominal pain | | | | | | -Other lead project manager | | | (current) drug therapy | | | | | | -Acquired absence of other specified parts of | | | | | | digestive tract | | | 06/18/2016 07:18 [facility] | | | [place] Emergency [...] --------- 1 | | | [facility] 1 | | | [facility] 8 [facility] 10 | | | Total Note: [...] COLLECTIVE MEDICAL | [address] | [place], [place] | [phone] | | TECHNOLOGIES | [address] | [id number] | | + + + + + [...]
[~2020-05-26 19:14] MED LIST changes: +BUPROPION HCL200 MG PO; +CYMBALTA60 MG PO; +ELIQUIS5 MG PO; +FLUTICASONE PRO16 GM NAS
--- OUTSIDE RECORDS SUMMARY | 2020-05-26 19:16 | XMS ---
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 No recent Security Events currently on file CRITERIA MET - Group Notification - [facility] - Has Care Guidelines - PDMP CARE PROVIDERS [facility] Internal Medicine Current PHONE: [phone] Aron Hannah Anesthesiology: Pain Medicine 07/18/2018-Current PHONE: Unknown Guidelines Source: [facility] Guidelines Date: 08/22/2019 Care Recommendation: PATIENT HAS HISTORY COMPLEX REEGIONAL PAIN SYNDROME WELL CYCLICAL ABDOMINAL PAIN/NAUSEA/VOMITING.\T\nbsp; UNDER TREATMENT WITH ARON HANNAH MD PHD PAIN MANAGMENT [place].\T\nbsp; FOLLOW THIS REGIMEN WHEN PRESENTING TO ED FOR RESOLUTION OF SYMPTOMS: *HYDRATION IV *HYDROMORPHONE 1MG IV * KETOROLAC 30 MG IV *PROMETHAZINE 25MG IV Additional care guidelines exist for the following facilities: [facility] ( 05/21/2019 ) Care History Medical/Surgical 03/06/2020 [facility] Patient has scheduled follow up with Dr. Quach at 11:00 am today.\T\nbsp; [address] Quach in next few weeks. 08/24/2019 [facility] - IF SEEN FOR HER CHRONIC COMPLEX REGIONAL PAIN SYNDROME/NAUSEA VOMITING IN THE EMERGENCY ROOM - TREAT WITH [facility]\T\nbsp;TREATMENT GUIDELINES IN THE ED ONLY --- DO NOT ADMIT FOR OBSERVATION OR\T\nbsp;INPATIENT - MAY NEED TO STAY FOR\T\nbsp;MULTIPLE\T\nbsp;TREATMENT ATTEMPTS - PATIENT IS NO LONGER TO BE ADMITTED\T\nbsp;FOR THIS CHRONIC CONDITION - IF SOMETHING ELSE IS FOUND ADMIT NEEDED\T\nbsp; 05/02/2018 [facility] - Patient is currently established with [facility]. If patient is seen in the ED during business hours. Please contact [facility] at [facility] at [phone] [phone]. Care Recommendation: This patient has had 5 or more Emergency Department visits in the last 12 months.\T\nbsp; Patient requires education on the scope and purpose of the ED as an acute care provider not a Primary Care Provider and should not be utilized for chronic conditions.\T\nbsp; If patient returns to ED please contact Community Health WorkerIlene at [phone]. These are guidelines and the provider should exercise clinical judgment when providing care. E.D. VISIT COUNT (12 MO.) 7 [facility] TOTAL 7 NOTE: Visits indicate total known visits. 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 - Allergy status to other drugs, medicaments and biological sub - Cyclical vomiting syndrome unrelated to migraine - Unspecified abdominal pain - Allergy status to narcotic agent status 08/12/2019 15:11 [facility] [place] TYPE: Emergency COMPLAINT: - ABD PAIN, NAUSEA 08/10/2019 13:43 [facility] TYPE: Emergency COMPLAINT: - ABD/BACK PAIN, VOMITING DIAGNOSES: - Other manager intermediate (current) drug therapy - Upper abdominal pain, unspecified - Allergy status to narcotic agent status - Cyclical vomiting, not intractable 08/08/2019 18:18 [facility] [place] TYPE: Emergency COMPLAINT: - SEVERE ABD AND BACK PAIN, VOMITING DIAGNOSES: - Other halfway (current) drug therapy - Complex regional pain syndrome I, unspecified - Unspecified abdominal pain - Allergy status to other drugs, medicaments and biological sub - Allergy status to narcotic agent status INPATIENT VISIT TRACKING (12 MO.) 03/23/2020 15:02 [facility] [place] TYPE: [facility] Surgical COMPLAINT: - BILATERAL PE DIAGNOSES: - detention (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 - Presence of (intrauterine) contraceptive device - Right upper quadrant pain - Complex regional pain syndrome I of left lower limb - Nonspecific elevation of levels of transaminase and lactic ac - Right upper quadrant pain - Interstitial cystitis (chronic) without hematuria - Complex regional pain syndrome I of left lower limb - Other manager intermediate (current) drug therapy - Cyclical vomiting syndrome unrelated to migraine - Major depressive disorder, single episode, unspecified - Cyclical vomiting syndrome unrelated to migraine - detention (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 - Nonspecific elevation of levels of transaminase and lactic ac - Other pulmonary embolism without acute cor pulmonale - Allergy status to narcotic agent status - Presence of (intrauterine) contraceptive device - Other halfway (current) drug therapy - Allergy status to narcotic agent status - Major depressive disorder, single episode, unspecified - Opioid dependence, uncomplicated - Opioid dependence, uncomplicated - Interstitial cystitis (chronic) without hematuria 08/12/2019 15:[address] 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
[2020-05-26] MEDS ORDERED: ELIQUIS5 MG PO (19:43)
== END 2020-05-26 22:35 | disposition home or self-care (01) ==
LOC: ED 19:14
DX: G90.59 Complex regional pain syndrome I of other specified site (principal); R10.9 Unspecified abdominal pain; R11.10 Vomiting, unspecified; Z88.5 Allergy status to narcotic agent; Z79.899 Other long term (current) drug therapy
CPT/HCPCS: 96361; 96374; 96375; 99283-25; J1170; J2550; J7030

== ENCOUNTER 2020-05-29 19:39 | Emergency (ER) | payer MEDICARE, OTHER ==
[~2020-05-29] VITALS: Ht 165.1 cm; Wt 95.7 kg
--- OUTSIDE RECORDS SUMMARY | ~2020-05-29 | XMS | Encounter Summary ---
Demographics + + + | Address | [address] | | | [place] [address] | + + + | Home Phone | | + + + | Preferred Language | Unknown | + + + | Marital Status | Single | + + + | Religion Affiliation | FMD | + + + | Race | White | + + + | Ethnic Group | Not or | + + + Author + + + | Author | [facility] | + + + | Organization | [facility] | + + + | Address | Unknown | + + + | Phone | Unavailable | + + + Support + + +---------+ + | Name | Relationship | Address | Phone | + + +---------+ + | Patricia Colin | ECON | Unknown | | + + +---------+ + Care Team Providers + +------+ + | Care Supervisor [employer] Name | Role | Phone | + +------+ + | Justo Vazquez MD | PCP | | + +------+ + Reason for Visit + + + | Reason | Comments | + + + | Low back pain | | + + + | Pain in left leg | | + + + Consult to [place] (Routine) +--------+---------+ + + + + | Status | Reason | Specialty | Diagnoses / | Referred By | Referred To | | | | | Procedures | Contact | Contact | +--------+---------+ + + + + | Closed | Other | Pain | Diagnoses | Sdrulla, | Sdrulla, | | | | Management | Complex | Alex Alba, | Alex Alba, | | | | | regional | ,PhD 3181 | ,PhD 3181 | | | | | pain | [address] | | | | | syndrome | [place] | | | | | type [address] | [address] | Rd [place], | | | | | left lower | [place], [place] | [place] | | | | | extremity | [address] | [address] | | | | | Procedures | Phone: | Phone: | | | | | REQUEST TO | [phone] | [phone] | | | | | SURGERY | Fax: | Fax: | | | | | [facility] | [phone] | [phone] | +--------+---------+ + + + + Encounter Details +--------+---------+ + + + | Date | Type | Department | Care Team | Description | +--------+---------+ + + + | 12/22/ | Office | [facility] | Ilene Bright, | Complex regional | | 2019 | Visit | Pain Center at | [employer] [address] | pain syndrome type 1 | | | | [facility] | [place], [place] | of left lower | | | | [address] | [address] | extremity; S/P | | | | [place] [facility] | [phone] | insertion of spinal | | | | and Healing, | | cord stimulator | | | | Building | | | | | | Floor [place], [place] | | | | | | [address] | | | | | | [phone] | | | +--------+---------+ + + + [...] + + + | Blood Pressure | 124/79 | 12/22/2018 10:31 AM | | | | | PST | | + + + + + | Pulse | 81 | 12/22/2018 10:31 AM | | | | | PST | | + + + + + | Temperature | - | - | | + + + + + | Respiratory Rate | 15 | 12/22/2018 10:31 AM | | | | | PST | | + + + + + | Oxygen Saturation | 100% | 12/22/2018 10:31 AM | | | | | PST | | + + + + + | Inhaled Oxygen | - | - | | | Concentration | | | | + + + + + | Weight | 80.3 kg (177 lb) | 12/22/2018 10:31 AM | | | | | PST | | + + + + + | Height | 165.1 cm (5' 5") | 12/22/2018 10:31 AM | | | | | PST | | + + + + + | Body Mass Index | 29.45 | 12/22/2018 10:31 AM | | | | | PST | | + + + + + documented in this encounter Patient Instructions Patient Instructions Collin Salomon - 12/22/2018 11:00 AM Shona, Thank you for taking the time to see [facility] in the [facility] today. We look fo sebastian to working with you in the future. As a reminder, this clinic generally does not pres cribe or dispense medications. We will send a copy of our notes, including detailed recomme ndations, to your primary care provider (PCP). Any prescriptions will need to come from gladys t provider. Please contact their office within the next few days to make an appointment to nimco et started with our recommendations. Below is a short summary of what we discussed today fo r your reference. - The [employer] manufacturers representative met with you and made adjustments to your stimulator. I spoke w ith the manufacturers representative and she is happy with your progress and thinks that today's adjustmen ts will continue to improve your condition. - We discussed and examined your surgical incision. As you mentioned, it is healing well wi th no signs of infection. Please contact us if you start to notice any signs of infection gonzales ch as fever, chills, increased redness, warmth or foul odor. - Additionally, we discussed your request for three more days of Oxycodone 10 mg to treat y our post-surgical pain. I will call this prescription into the [facility] in [place]. It was great to see you again, documented in this encounter Progress Notes Ilene Bright, [employer] - 12/22/2018 11:00 AM PSTFormatting of this note might be different fr om the original. [facility] Return Visit Date: 12/22/2018 Chief Complaint Patient presents with Low back pain Pain in left leg History of Present Illness: Tracie Farah is a 28 year old female, whose last appoi ntment at [facility] was 12/07/2018 following her doral root ganglion stim ulator implant on 12/05/2018. At that time our plan was: - Prescription provided for Oxycodone 10 mg PO q 8 PRN Disp# 30 Refill# 0 - Patient will follow up on December [address] Sims Today, Ms. Farah complains of pain at her incision site. She still is unable to tell whe ther or not the DRG has been helpful for her foot pain as she still is experiencing post-ope rative pain and believes that her foot pain is being covered up by her pain medications. She is still taking Oxycodone 10 mg q 6 hours as her original trial of Oxycodone 5 mg was not s ufficient. The patient denies fever, chills or any other signs of infection at this time. Ms Pj Farah is hesitant to ask for pain medications. 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 Pain Inventory: (ten= worst possible pain or complete interference) Right Now: 6 Least in 24 hours: 6 Worst in 24 hours: 8 Average: 7 % Relief (med/treat): 80 General Activity: 8 Mood: 4 Walking Ability: 7 Normal Work: 10 Relations with Others: 8 Enjoyment of Life: 7 Sexual Activity: 0 Sleep: 8 Past Medical History: Diagnosis Date Abdominal pain Ankle fracture, left Anxiety Compartment syndrome (HCC) Cyclic vomiting syndrome Depression GERD (gastroesophageal reflux disease) Interstitial cystitis (chronic) with hematuria Neuroma of lower extremity Other chronic pain Peroneal nerve injury Reflex sympathetic dystrophy of the lower limb Past Surgical History Procedure Laterality Date Tonsillectomy and adenoidectomy Ankle surgery x 9 Fasciotomy Neurectomy foot Nerve block 03/18/11 & 03/25/11 Left lumbar sympathetic ganglion block Hemroidectomy Trial spinal cord stimulator leads 08/02/2012 [facility], Surgeon: Janak Riojas MD Cholecystectomy Appendectomy Other l ankle, port Implant spinal cord stimulator 12/05/2018 [employer] Model [id number]. Surgeon: Alex Sanchez MD Family History Problem Relation Alcohol/Drug Maternal Grandfather Allergies Maternal Grandfather Arthritis Maternal Grandfather Asthma Maternal Grandfather Stroke Maternal Grandfather Allergies Mother Headache Mother Hypertension Mother Depression Mother Allergies Father Hypertension Father Diabetes Father Allergies Brother Arthritis Maternal Grandmother Headache Maternal Grandmother Arthritis Paternal Grandmother Diabetes Paternal Grandmother Cancer Paternal Grandmother Arthritis Paternal Grandfather Cancer Paternal Grandfather Asthma Brother History Alcohol Use No Comment: rare History Drug Use Comment: CBD Social History Social History Narrative Single. Goes to [employer] with a light load. Has been working at [employer], can' t work on [employer]. Has roommates. Allergies Allergen Reactions Morphine Anaphylaxis Haldol [Haloperidol] Myalgia Tracie states muscle spasm and "feeling like crawling out of skin." Current Medication List Name Sig BACLOFEN 10 MG TABLET Take 0.5 tablets by mouth two times daily. Take at the onset of abdom inal spasm for two days. Indications: muscle spasm COMPOUNDED MED RX CONTROLLED (SEE ADMIN INSTRUCT FOR INGREDIENTS) Ketamine 150 mg/ml nasal spray. 30 sprays intranasally every 3 hours. CYCLOBENZAPRINE 5 MG TABLET Take 5 mg by mouth three times daily as needed. Do not use long er than 2-3 weeks. HYDROCODONE 10 MG-ACETAMINOPHEN 325 MG TABLET Take 1-2 tablets by mouth every six hours as needed. HYDROXYZINE HCL 50 MG TABLET Take 1 tablet by mouth two times daily. KETOROLAC IM Inject into the muscle (IM). LEVONORGESTREL 20 MCG/24 HR (5 YEARS) INTRAUTERINE DEVICE 1 Each by Intrauterine route once . May be removed and replaced with a new unit at anytime during menstrual cycle; do not leav e any one system in place for > 5 years. ONDANSETRON 4 MG DISINTEGRATING TABLET Dissolve 1 tablet in mouth every twelve hours as nee ded. OXYCODONE 10 MG TABLET Take 1 tablet by mouth every eight hours as needed for severe pain. PANTOPRAZOLE 40 MG TABLET,DELAYED RELEASE Take 40 mg by mouth once daily. PEG 3350-ELECTROLYTES 236 GRAM-22.74 GRAM-6.74 GRAM-5.86 GRAM SOLUTION Take as directed by [facility] Digestive Health- 2 gallon bowel prep POLYETHYLENE GLYCOL 3350 17 GRAM/DOSE ORAL POWDER Take 17 g by mouth once daily. PROMETHAZINE 12.5 MG TABLET Take 1 tablet by mouth four times daily as needed for nausea/vo miting. SUCRALFATE 1 GRAM TABLET Take 1 g by mouth four times daily. Radiology/Diagnostic Tests: No recent diagnostics Most Recent Labs: No recent labs ROS: Bones, Joints, and Muscles: muscle pain and stiffness Gastrointestinal System: negative Genitourinary System: negative Nervous System: negative Psychiatric History: sleep disturbance, decreased energy, fear of physical activity and so cial withdrawal Physical Examination: BP 124/79 | Pulse 81 | RR 15 | Ht 1.651 m (5' 5") | Wt 80.3 kg (177 lb) | SpO2 100% | BMI 2 9.45 kg/(m^2) Physical Exam Constitutional: No distress. HENT: Head: Normocephalic and atraumatic. Right Ear: External ear normal. Left Ear: External ear normal. Nose: Nose normal. Mouth/Throat: Oropharynx is clear and moist. Eyes: Conjunctivae and EOM are normal. Right eye exhibits no discharge. Left eye exhibits n o discharge. Neck: No tracheal deviation present. Cardiovascular: Normal rate. Pulmonary/Chest: Effort normal. No stridor. No respiratory distress. Abdominal: She exhibits no distension. Neurological: She is alert. Skin: Skin is warm and dry. She is not diaphoretic. No erythema. Intact. No sign of erythema. No edema. Psychiatric: Affect normal. Vitals reviewed. Patient Active Problem List Diagnosis CRPS (complex regional pain syndrome), lower limb Gait disturbance Muscle pain Adjustment reaction Pain in joint, lower leg Disturbance in sleep behavior Pain of upper abdomen 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 Irritable bowel syndrome with constipation Intractable cyclical vomiting with nausea Abdominal pain Abdominal scar neuroma [facility] CLINICAL PROTOCOL PATIENT (CLNPRO) - Implanted Spinal Cord Stimulator Visit Diagnoses: G90.522 Complex regional pain syndrome type 1 of left lower extremity Z98.890 S/P insertion of spinal cord stimulator For today's evaluation, I have included my personal review of Ms. Farah's history and ph ysical examination. I also used the following components in my medical decision making: Review and summary of old medical records (source: [facility], [facility] Everywhere), as summarized in the body of the note. Impression: Ms. Tracie Farah is a 28y.o. female with a history of Complex Regional Pain Synd artem of the lower extremity as well as abdominal pain associated with severe, cyclical nause a and vomiting. She was previouslyevaluated by an orthopedic surgeon who determined that s urgical intervention was not indicated for removal of her left ankle hardware due to the dev elopment of scar tissue and rotation of the originally placed staple. As she is unable to pu rsue surgical interventions for her pain, we proceeded with a DRG stimulator implantation. She returns today s/p dorsal root ganglion stimulator implant with Alex Sanchez MD, PhD (12/05/2018) presenting today for her 14-day post-implantation follow-up. She still reports p ain around the incision site. The incision was intact with no sign of erythema or edema (se e photo above). The patient denies any signs of infection. At this time, she doesn't report any pain in her foot and believes that this is due to the pain medication that she is taking for her surgical incision. The [employer] manufacturers representative visited the patient in order to make minor adjustments. She adjusted the leads and is happy with Ms. Farah's progress. Ms. Farah is due to run out of Oxycodone On Tuesday 12/26 and is worried that she will be unable to get a refill due to the potential snow storm. She is hopeful by Tuesday, that her post operative pain will be improved, however she does not want to be out of medication and unable to contact providers, pending inclement weather. I provided her today with a prescri ption refill of Oxycodone 10 mg PO q 8 PRN Disp# 10 Refill# 0 to start on Tuesday, 12/26. Recommendation/Plan: - Follow up with Dr. Sanchez as needed (no visits scheduled at this time) -Prescription provided for Oxycodone 10 mg PO q 8 PRN Disp# 10 Refill# 0 I, Collin Salomon, am functioning as a scribe for TERESA Banuelos. I have reviewed and verified the above scribed note of my visit with this patient as record ed by Collin Salomon. Ilene Childs DNP, [employer] [address] [place] [address] mith, Charline Torres MA - 12/22/2018 11:00 AM PSTCMA History: 1. Has your pain changed from your last visit? increased 2. Do your medications cause any side effects? NO 3. Have you had physical therapy appointments since your last visit? NO 4. Have you had psychology appointments since your last visit? NO 5. Have you had any diagnostic studies since your last appointment? NO 6. Do you require any medication refills today? NO ROS:. 1. BONES, JOINTS AND MUSCLES muscle pain and stiffness 2. GASTROINTESTINAL SYSTEM negative 3. GENITOURINARY SYSTEM negative 4. NERVOUS SYSTEM negative 5. PSYCHIATRIC HISTORY sleep disturbance, decreased energy, fear of physical activity and social withdrawal documented in this e ncounter Plan of Treatment Not on filedocumented as of this encounter Visit Diagnoses + + | Diagnosis | + + | Complex regional pain syndrome type 1 of left lower extremity | + + | S/P insertion of spinal cord stimulator | + + documented in this encounter
--- OUTSIDE RECORDS SUMMARY | ~2020-05-29 | XMS | Encounter Summary ---
Demographics + + + | Address | [address] | | | [place] [address] | + + + | Home Phone | | + + + | Preferred Language | Unknown | + + + | Marital Status | Single | + + + | Tenriism Affiliation | FMD | + + + [...] Team Providers + +------+ + | Care Labview Programmer Name | Role | Phone | + +------+ + | Justo Vazquez MD | PCP | | + +------+ + Reason for Visit + + + | Reason | Comments | + + + | Pre-operative | | | evaluation | | + + + Encounter Details +--------+---------+ + + + | Date | Type | Department | Care Team | Description | +--------+---------+ + + + | 11/27/ | Office | Preoperative | Catie Smart | Pre-op evaluation | | 2019 | Visit | Medicine Clinic at | R, [facility] HEL[facility] [address] [facility] | (Primary Dx); | | | | [facility] | [address] | Complex regional | | | | [address] | [place], [place] | pain syndrome type 1 | | | | [facility] | [address] | of left lower | | | | and Healing, | [phone] | extremity; Cyclic | | | | [address] | | vomiting syndrome, | | | | [place], [place] | | intractability of | | | | [address] | | vomiting not | | | | [phone] | | specified, presence | | | | | | of nausea not | | | | | | specified | +--------+---------+ + + + Anesthesia Record + + + + + | Procedure Name | Responsible | Anesthesia Start | Anesthesia Stop Time | | | Anesthesiologist | Time | | + + + + + | BILATERAL DORSAL | Ilir Valdes, | 12/05/18 0741 | 12/05/18 1044 | | ROOT GANGLION [...] | Meds | +------+ + + + No medications | on file. | + + + + + | No agents on file. | + + + + | No blood administrations on file. | + + +--------+ + +---------+ | Type | Details | Placement | Removal | +--------+ + +---------+ | Port/P | Right; Chest portacath | 03/18/17 7910 by | | | ortaca | | [...] + + + | Blood Pressure | 117/62 | 11/27/2018 2:01 PM | | | | | PST | | + + + + + | Pulse | 85 | 11/27/2018 2:01 PM | | | | | PST | | + + + + + | Temperature | 36.4 C (97.5 F) | 11/27/2018 2:01 PM | | | | | PST | | + + + + + | Respiratory Rate | 14 | 11/27/2018 2:01 PM | | | | | PST | | + + + + + | Oxygen Saturation | 99% | 11/27/2018 2:01 PM | | | | | PST | | + + + + + | Inhaled Oxygen | - | - | | | Concentration | | | | + + + + + | Weight | 80.3 kg (177 lb) | 11/27/2018 2:01 PM | | | | | PST | | + + + + + | Height | 165.1 cm (5' 5") | 11/27/2018 2:01 PM | neck 36.5cm | | | | PST | | + + + + + | Body Mass Index | 29.45 | 11/27/2018 2:01 PM | | | | | PST | | + + + + + documented in this encounter Patient Instructions Patient Instructions Catie Smart NP - 11/27/2018 2:05 PM PST PREOPERATIVE INSTRUCTIONS Please consider having an influenza vaccination in the near future. There is no contraindi cation to having this done before your surgery. Empty stomach before surgery On the day BEFORE your surgery, drink plenty of fluids and stay well hydrated NOTHING to eat or drink after midnight the night before surgery. This includes water, coffee, candy, mints, gum. Medications Instructions On the evening before your surgery, take ALL your usual evening medications On the morning of surgery TAKE the following medications with a sip of water: Pantoprazole Other medications not specifically mentioned are at your discretion as to taking or not taking on the morning of surgery. Unless otherwise directed by your surgeon, do not take any Aspirin, fish oil supplements , vitamin E or non-steroidal anti-inflammatory (NSAIDs i.e. Advil, Aleve, Ibuprofen) or herb al supplements 7 days prior to your surgery. These drugs may interfere with normal blood kt tting and may cause excessive bleeding and bruising during or after the surgery. If you need a pain medication for general purposes, use Tylenol as directed. OK to take it even on the morning of surgery, if needed. If you are in doubt about any medications that you are taking, please contact our office . Skin preparation to help avoid surgical site infections HIBICLENS GUIDE TO GENERAL SKIN CLEANSING AT HOME BEFORE SURGERY Before you bathe or shower: ? Read the instructions given to you by your healthcare practitioner, and begin your genera l skin cleansing protocol as directed. ? Carefully read all directions on the product label. ? Hibiclens is not to be used on the head or face, keep out of the eyes, ears and mouth. ? Hibiclens is not to be used in the genital area. ? Hibiclens should not be used if you are allergic to chlorhexidine gluconate or any other ingredients in this preparation. *See Hibiclens label for full product information and precautions. When you bathe or shower the night before your surgery: ? If you plan to wash your hair, do so with your regular shampoo. Then rinse hair and body thoroughly to remove any shampoo residue. ? Wash your face with your regular soap or water only. ? Thoroughly rinse your body with warm water from neck down. ? Use Hibiclens as you would any other liquid soap. Please do not put the Hibiclens on a wa sh cloth, apply directly to the skin and wash gently. Apply the minimum amount of Hibiclens necessary to cover the skin. Leave the Hibiclens on your skin for 1 minute, then rinse off. ? Rinse thoroughly with warm water. ? Do not use your regular soap after applying and rinsing Hibiclens. When using Hibiclens for a second day in a row (morning of surgery, as soon as you wake up) : ? Shower/bathe again using Hibiclens in the same method as described above. ? Do not apply any lotions, deodorants, powders or perfumes to the body areas that have been cleaned with Hibiclens. Other Important Guidelines ? Do not shave the surgical area ? Do not wear tampons on the day of the procedure Do not smoke, drink alcohol or use recreational drugs for 24 hours before your surgery Watch for any change in your health condition. Let your surgeon know right away if you do not feel well. ? Do not wear makeup, perfume, lotions, deodorant, powder or hairspray. Do not wear any jewelry to the hospital. Wear loose, comfortable clothing. Leave all your valuables at home. Allow enough travel time so you re not late for your check in for surgery. ? Take a bath or shower and remember to shampoo your hair using your usual hair product bef ore your arrival at the hospital. Please remember to brush your teeth the night before and the morning of your procedure. Smoking You should not smoke for 4 weeks before the procedure and 2 weeks after the procedure. If you are a smoker, please make sure to discuss a plan for managing nicotine withdrawal while in the hospital. Smoking increases the risk of post operative complications because it causes narrowing of b lood vessels, which leads to decreased blood flow to the tissue and therefore poor healing. If you have 3-4 weeks before your planned procedure and wish to quit, we will help you with resources and support. Preventing post op complications while you are in the hospital Use an incentive spirometer or peep breathe to keep your lungs working properly an d to help prevent respiratory complications. It helps you take long, deep breaths. Use it at least once every hour while you are awake. Leg and feet exercises will maintain good circulation and help prevent blood clots in yo ur legs. Sometimes your doctor will order sequential air compression stockings. Compressed air helps the circulation in your legs. Walking and moving will help stimulate normal circulation and deep breathing. After you r surgery, your nurse may ask you to sit, stand or walk. Surgery check-in location: [facility] Stay - [facility], 4th floor Surgery Check in Time: The Preoperative Medicine Clinic is not in the position to give you accurate information regarding surgical check in time. We refer you back to your surgical office regarding this important information. Going Home Your surgical team will decide when you are medically ready to go home. If you are released to go home on the same day as your procedure/surgery please note the following: You will not be able to drive. You will be required to have a competent person drive you or accompany you by taxi or pu blic transportation on the day of discharge. It is also recommended that you have a competent person assist you and look after you on the first night after you have undergone regional blocks (72 hours for patients going home with regional block pump), deep sedation, and/or general anesthesia. If you have questions or concerns after you go home, call your doctor s office. If it is after office hours, call the [facility] shingle shearing machine operator at [phone] and ask them to page him or h er. documented in this encounter Progress Notes Catie Smart NP - 11/27/2018 2:05 PM PST PREOPERATIVE CONSULT NOTE Author: Catie Smart NP Referring Physician: Alex Sanchez MD Primary Care Provider: Justo Vazquez MD Reason for Consult: Preoperative evaluation and risk assessment Proposed Procedure/Date: implant SCS; 12/05/2018 Proposed Procedure Location: [facility] HISTORY OF PRESENT ILLNESS: Tracie Farah is a 28 y.o. female here for preoperative evaluation of medical problems in anticipation of the above procedure. Pt has dx of CRPS t ype I left LE. Symptoms related to the diagnosis:bilateral low back and left lower leg, pre sent for years, worse with activity, improved with rest and ketamine. Pertinent medical problems discussed during this visit: CRPS - stable, improved with ketamine nasal spray. Has occasionally used hydrocodone-APA P (1/2 tab of 10-325) because trying to reserve some nasal spray for after surgery. Cyclic vomiting - likely triggered by GERD per pt. Controlled on PPI. No flares since 2017. Has protocol in place at hospital - receives IV toradol and promethazine, which helps. Perioperative cardiac risks: CAD no CHF no CVA no CKD with creatinine >2 no DM treated with insulin no Functional Capacity: Low (1-4 mets) Prior complications of anesthesia: see comments ROS: Prior Anesthetic Problems: Yes see comments Pulmonary: no shortness of breath no cough no stridor no wheezing no Recent Respiratory Infectio n Pt. Has no asthma no COPD No dx of sleep apnea No risk factors for sleep apnea: Cardiovascular: ~4 METS; limited by left LE pain Denies any chest pain or pressure, sob, mathur, orthopnea, pnd, peripheral edema, palpitations or dizziness/syncope. Functional Capacity: Moderate no chest pain no CHF no hypertension no CAD Sx no valvu lar problems/murmurs no arrhythmia no Cardiac assist devices no pacemaker/ICD GI/Hepatic: +cyclic vomiting d/t GERD - sleeps with 3-4 pillows Controlled since 07/2018 no GI Bleed GERD Control: well controlled no liver disease no hepatitis Renal: no renal failure no electrolyte abnormalities no dialysis Urology/Senior Interior Designer: Interstitial cystitis LMP: irreg bleeding, ~11/14/2018, IUD in place Endo: no Diabetes: no Endocrine Other no Hx Corticosteroid Use Neuro/Psych: +CRPS - left LE No Spine Conditions No Neuromuscular Conditions no Psych Disorder pain (le ft LE - ketamine nasal spray; hydrocodone-APAP 10-325, takes 1/2 tab 1-2x in last few weeks (reserving ketamine for after surgery)) Current pain score: 7 Musculoskeletal: no arthritis No Muscular Disorders Heme/Onc: Pt. has: no active bleeding no bleeding disorder No clotting disorders No hemoglobin d isorders no malignancy Infectious Disease: no MRSA no VRE Skin: no open wounds no skin conditions AutoImmune Disorders: No autoimmune disorders Current medications reviewed / updated Current Outpatient Prescriptions Medication Sig baclofen 10 mg oral tablet Take 0.5 tablets by mouth two times daily. Take at the onset of abdominal spasm for two days. Indications: muscle spasm COMPOUNDED MED RX CONTROLLED (SEE ADMIN INSTRUCT FOR INGREDIENTS) Ketamine 150 mg/ml na miriam spray. 30 sprays intranasally every 3 hours. cyclobenzaprine 5 mg oral tablet Take 5 mg by mouth three times daily as needed. Do not use longer than 2-3 weeks. HYDROcodone-acetaminophen 10-325 mg oral tablet Take 1-2 tablets by mouth every six yang rs as needed. hydrOXYzine 50 mg oral tablet Take 1 tablet by mouth two times daily. ketorolac tromethamine (KETOROLAC IM) Inject into the muscle (IM). levonorgestrel (MIRENA) 20 mcg/24 hr Intrauterine IUD 1 Each by Intrauterine route once . May be removed and replaced with a new unit at anytime during menstrual cycle; do not leav e any one system in place for > 5 years. ondansetron ODT 4 mg oral tablet,disintegrating Dissolve 1 tablet in mouth every twelve hours as needed. pantoprazole 40 mg oral tablet,delayed release (DR/EC) Take 40 mg by mouth once daily. peg-electrolyte 236-22.74-6.74 -5.86 gram oral recon soln Take as directed by [facility] Q Chip [employer] [facility]- 2 gallon bowel prep polyethylene glycol 17 gram/dose oral powder Take 17 g by mouth once daily. promethazine 12.5 mg oral tablet Take 25 mg by mouth four times daily as needed for meagan sea/vomiting. .5 tabs daily sucralfate 1 gram oral tablet Take 1 g by mouth four times daily. Level of confidence in medication reconciliation accuracy: High Allergies reviewed / updated Allergies Allergen Reactions Morphine Anaphylaxis Haldol [Haloperidol] Myalgia Tracie states muscle spasm and "feeling like crawling out of skin." Past medical history reviewed / updated Past Medical History: Diagnosis Date Abdominal pain Ankle fracture, left Anxiety Compartment syndrome (HCC) Depression GERD (gastroesophageal reflux disease) Neuroma of lower extremity Other chronic pain Peroneal nerve injury Reflex sympathetic dystrophy of the lower limb Past surgery reviewed / updated Past Surgical History Procedure Laterality Date Tonsillectomy and adenoidectomy Ankle surgery x 9 Fasciotomy Neurectomy foot Nerve block 03/18/11 & 03/25/11 Left lumbar sympathetic ganglion block Hemroidectomy Trial spinal cord stimulator leads 08/02/2012 [facility], Surgeon: Janak Riojas MD Cholecystectomy Appendectomy Other l ankle, port Family history reviewed / updated Family History Problem Relation Alcohol/Drug Maternal Grandfather Allergies Maternal Grandfather Arthritis Maternal Grandfather Asthma Maternal Grandfather Stroke Maternal Grandfather Allergies Mother Headache Mother Hypertension Mother Depression Mother Allergies Father Hypertension Father Diabetes Father Allergies Brother Arthritis Maternal Grandmother Headache Maternal Grandmother Arthritis Paternal Grandmother Diabetes Paternal Grandmother Cancer Paternal Grandmother Arthritis Paternal Grandfather Cancer Paternal Grandfather Asthma Brother Social history reviewed / updated Social History Substance Use Topics Smoking status: Current Some Day Smoker Smokeless tobacco: Never Used Alcohol use No PHYSICAL EXAM: Last Vitals: BP 117/62 | Pulse 85 | Temp (Src) 36.4 C (97.5 F) (Oral) | RR 14 | Ht 1.65 1 m (5' 5") | Wt 80.3 kg (177 lb) | SpO2 99% | BMI 29.45 kg/(m^2) Body mass index is 29.45 k g/m. Physical Exam General: Appearance: Healthy, Age appropriate, No distress and Smiling LOC: Alert HEENT: Normocephalic/Atraumatic, Normal sclerae/conjunctivae, PERRL, EOMI and No thyromegaly Airway: Dentition: dentition is normal Mallampati: 2 Mouth Opening: > 3 cm TM Distance:> 6 cm C-Spine ROM: Normal Neck Anatomy: Normal Neck Circumference: <40 cm. Jaw Protrusion: Normal (lower incisors go above upper incisors ) Pulmonary: Respiratory: pulmonary exam normal Breath Sounds: breath sounds normal Cardiovascular: Rhythm: Regular Rate: Normal Cardiovascular comments: No M/G/R; no pedal edema Abdomen: General: Normal Body Habitus: normal Musculoskeletal: Range of Motion: Normal range of motion Musculoskeletal Comments: No obvious deformities n oted. Neuro/Psych: Affect: Normal Cognitive Status: Normal Speech: Normal speech Strength: Normal Muscle Tone: Normal Movement: Abnormal Gait Station: Abnormal Skin: Color: skin color normal Texture: Normal Turgor: turgor normal Temperature: Warm Additional Comments: Anesthesia FYI: 1) pt reports issues with conscious sedation in the past. Feels like she requires more catherine tion that typical, and it was a difficult experience having the SCS trial because she woke u p multiple times and was in pain and there was concern about her getting more sedation 2) pt has port in right upper chest. Using peripheral IV sets off her CRPS and would prefer using port if possible. LABS & DATA REVIEWED/ORDERED Lab Results Component Value Date WBC 8.87 03/18/2017 HB 12.9 03/18/2017 HCT 37.1 03/18/2017 PLT 267 03/18/2017 MCV 91.2 03/18/2017 RDW 37.7 03/18/2017 Lab Results Component Value Date NA 141 03/21/2017 K 4.2 03/21/2017 CL 106 03/21/2017 BICARB 29 03/21/2017 BUN 16 03/21/2017 CR 0.86 03/21/2017 GLU 86 03/21/2017 CA 8.4 03/21/2017 AST 9 03/18/2017 ALT 20 03/18/2017 AP 71 03/18/2017 TBILI 0.3 03/18/2017 TP 7.2 03/18/2017 ALB 4.0 03/18/2017 No results found for: ABO, RH No results found for: A1C EKG: Not needed Perioperative risk calculators 2013 ACC/AHA Perioperative Cardiac Risk Stratification (assumes non-emergent, non-cardiac p rocedure) Are active cardiac conditions present? No Calculate the combined surgical and patient-specific risk: Surgery is low risk therefore fu rther coronary risk stratification is not indicated. Estimated ASA class 2 Other perioperative risk calculators: Not Applicable ASSESSMENT and RECOMMENDATIONS: Perioperative risk assessment: Tracie Farah is a 28 y.o. female with diagnosi s of CRPS type I, left LE, scheduled for spinal cord stimulator implant. Based on the clini richard information obtained and reviewed during this visit, the overall assessment is that the patient is having elective minor surgery with identified risk factors. The patient is stabl e / optimized for surgery. Additional testing/optimization is not needed. The patient is a lso currently scheduled at [facility] [place] and is meeting inclusion criteria for that venue. Medication management recommendations: The patient was advised to continue all usual med ications except as noted in Patient Instructions (After Visit Summary given to pt) Pre-procedure antibiotic recommendation: Per standard protocol. CRPS - stable, improved with ketamine nasal spray. Has occasionally used hydrocodone-APA P (1/2 tab of 10-325) because trying to reserve some nasal spray for after surgery. Continue as needed. Cyclic vomiting - likely triggered by GERD per pt. Controlled on PPI. No flares since 2017. Has protocol in place at hospital - receives IV toradol and promethazine, which helps. Continue PPI as scheduled. Anesthesia FYI: 1) pt reports issues with conscious sedation in the past. Feels like she requires more catherine tion that typical, and it was a difficult experience having the SCS trial because she woke u p multiple times and was in pain and there was concern about her getting more sedation. 2) pt has port in right upper chest. Using peripheral IV sets off her CRPS and would prefer using port if possible. Discussed with Dr Moreno - PACU nurses should be able to access port day of surgery. Thank you for the opportunity to contribute to this patient's care. Catie Smart NP [facility] PREOPERAT[facility] AT [facility] 4TH FLOOR [address] [facility] [address] [address] I advised the patient regarding NPO requirements, hydration before surgery, showering, gene ral body hygiene. All pre-procedure instructions given to the patient (after-visit summary) . All of patient's questions were addressed. The patient verbalized understanding of the i nstructions given. Tdocumented in this encounter Plan of Treatment Not on filedocumented as of this encounter Visit Diagnoses + + | Diagnosis | + + | Pre-op evaluation - Primary Preoperative examination, unspecified | + + | Complex regional pain syndrome type 1 of left lower extremity | + + | Cyclic vomiting syndrome, intractability of vomiting not specified, presence of nausea | | not specified | + + documented in this encounter
--- OUTSIDE RECORDS SUMMARY | ~2020-05-29 | XMS | Encounter Summary ---
Demographics + + + | Address | [address] | | | [place] [address] | + + + | Home Phone | | + + + | Preferred Language | Unknown | + + + | Marital Status | Single | + + + | Worship Affiliation | FMD | + + + [...] Team Providers + +------+ + | Care Jig Hand Name | Role | Phone | + +------+ + | Justo Vazquez MD | PCP | | + +------+ + Encounter Details +--------+ + + + + | Date | Type | Department | Care Team | Description | +--------+ + + + + | 10/19/ | Telephone | [facility] | Ilene Bright, | | | 2017 | | Pain Center at | [employer] [address] | | | | | [facility] | [place], [place] | | | | | [address] | [address] | | | | | [place] [facility] | [phone] | | | | | and Healing, | | | | | | | | | | | | Floor [place], [place] | | | | | | [address] | | | | | | [phone] | | | +--------+ + + + [...]
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
--- OUTSIDE RECORDS SUMMARY | ~2020-05-29 | XMS | Encounter Summary ---
Demographics + + + | Address | [address] | | | [place] [address] | + + + | Home Phone [...] Team Providers + +------+ + | Care Processing Associate Name | Role | Phone | + +------+ + | Justo Vazquez MD | PCP | | + +------+ + Encounter Details +--------+ + + + + | Date | Type | Department | Care Team | Description | +--------+ + + + + | 12/12/ | Telephone | [facility] | Alex Sanchez, | | | 2019 | | Pain Center at | ,PhD [address] | | | | | [facility] | [address] | | | | | [address] | [place], [place] | | | | | [place] [facility] | [address] | | | | | and Healing, | [phone] | | | | | | | | | | | Floor [place], [place] | | | | | | [address] | | | | | | [phone] | | | +--------+ + + + [...]
--- OUTSIDE RECORDS SUMMARY | ~2020-05-29 | XMS | Encounter Summary ---
Demographics + + + | Address | [address] | | | [place] [address] | + + + | Home Phone | | + + + | Preferred Language | Unknown | + + + | Marital Status | Single | + + + | Gnosticism Affiliation | [id number] | + + + | Race | Unknown | + + + | Ethnic Group | Unknown | + + + Author + + + | Author | [facility] | | | and [place] | + + + | Organization | [facility] | | | and [place] [...] [place] | | | | | [address] | | + + + + + | Bryant Farah | ECON | Unknown | | + + + + + Care Team Providers + +------+ + | Care Copy Operator Name | Role | Phone | + +------+ + PCP | Unavailable | + +------+ + Encounter Details +--------+ + + + + | Date | Type | Department | Care Team | Description | +--------+ + + + + | 03/20/ | Hospital | [facility] | Ulices Hayes, | 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 Discharge Summaries by Ulices Hayes MD at 03/26/13 1218 Author: Ulices Hayes MD Service: Interventional Pain Management Author Type: Liliana deya Filed: 03/26/13 1228 Date of Service: 03/26/138 Status: Signed Pig Machine Operator: Ulices Hayes MD (Physician) Discharge summary Admitting physician: Ulices Hayes M.D. Admission diagnosis: 1. Chronic pain syndrome [...] of dorsal column spinal cord stimulation at [facility]. T his also failed to provide adequate [...] stable condition. She will follow-up with her [facility] physician for continued medical management. She can also contact my office on an a s needed basis for reevaluation. documented in this encounter Progress Notes Conversion Transaction, Provider Unknown - 03/22/2013 7:21 PM PDTFormatting of this note m ight be different from the original. Progress Notes by Ava Sue RN at 03/22/131920 Author: Ava Sue RN Service: (none) Author Type: Registered Nurse Filed: 03/22/131929 Date of Service: 03/22/131920 Status: Signed Pig Machine Operator: Ava Sue RN (Registered Nurse) Patient tolerated HOB elevated [...] pain at the intrathecal site noted. AVA SUE RN 03/22/2013 7:29 PM onver christiano Transaction, Provider Unknown - 03/22/2013 6:55 PM PDT Progress Notes by Ava Sue RN at 03/22/131854 Author: Ava Sue RN Service: (none) Author Type: Registered Nurse Filed: 03/22/131854 Date of Service: 03/22/131854 Status: Signed Pig Machine Operator: Ava Sue RN (Registered Nurse) Discharge teaching done, instructions given. Pt states understanding. Medications discussed , no questions or concerns. Pt instructed to wear WILIAM hose at home until cleared by and aspen villatoro instructions and diet for anti-coag therapy. Pt instructed to contact MD with any conc erns or if signs/symptoms re-occur that were associated with this hospitalization. AVA SUE RN 03/22/2013 6:55 PM lices Brock MD - 03/22/2013 6:52 AM PDT Progress Notes by Ulices Hayes MD at 03/22/13651 Author: Ulices Hayes MD Service: Interventional Pain Management Author Type: Physic deya Filed: 03/22/13 0657 Date of Service: 03/22/13651 Status: Signed Pig Machine Operator: Ulices Hayes MD (Physician) [facility] Service: Interventional Pain Management Pre-Operative History & [...] 12 hours then dischar ged home. ULICES HAYES MD 03/22/2013 *CORE MEASURES REMINDER: If the patient has a known or suspected infection prior to surger y, please add diagnosis to the problem list (consider: Infection 136.9). onversion Transact ion, Provider Unknown - 03/21/2013 10:32 AM PDTFormatting of this note might be different fr om the original. Progress Notes by JUSTIN Ospina at 03/21/13 103 Author: JUSTIN Ospina Service: (none) Author Type: Crew Director Filed: 03/21/131035 Date of Service: 03/21/131031 Status: Addendum Pig Machine Operator: JUSTIN Ospina (Crew Director) Related Notes: Original Note by JUSTIN Ospina (Crew Director) filed at 03/21/13 1 036 Met w/22yo F Pt who lives w/parents in [place], [place]. Pt lives in two story house [...] will transport home. Pt has info for financial co [place]. lices Brock MD - 03/21/2013 7:27 AM PDT Progress Notes by Ulices Hayes MD at 03/21/13726 Author: Ulices Hayes MD Service: Interventional Pain Management Author Type: Physic deya Filed: 03/21/13 0735 Date of Service: 03/21/13726 Status: Signed Pig Machine Operator: Ulices Hayes MD (Physician) [facility] Service: Interventional Pain Management Pre-Operative History & Physical Interval Update Continued severe pain at 0.576 mg intrathecal hydromorphone. Dip in BP this AM so will not increase hydromophone but will add bupivacaine to intrathecal medication. I will also statrt some oral oxycodone to prevent withdrawal. ULICES HAYES MD 03/21/2013 *CORE MEASURES REMINDER: If the patient has a known or suspected infection prior to surger y, please add diagnosis to the problem list (consider: Infection 136.9). onversion Transact ion, Provider Unknown - 03/21/2013 6:40 AM PDTFormatting of this note might be different fr om the original. Progress Notes by Darlin Orlando RN at 03/21/13 0640 Author: Darlin Orlando RN Service: (none) Author Type: Registered Nurse Filed: 03/21/1346 Date of Service: 03/21/13639 Status: Signed Pig Machine Operator: Darlin Orlando RN (Registered Nurse) Pt had no changes [...] to BP until MD was contacted. Dr. Hayes notified of pt's BP and pain level and orders received and implemented. Pt is currently resting in bed and states she is "Okay". Wi ll continue to monitor. docume nted in this encounter H&P Notes Ulices Hayes MD - 03/19/2013 10:34 AM PDTFormatting of this note might be different fr om the original. H&P by Ulices Hayes MD at 03/19/13 1034 Author: Ulices Hayes MD Service: Interventional Pain Management Author Type: Physic deya Filed: 03/20/13 1023 Date of Service: 03/19/13 1034 Status: Addendum Pig Machine Operator: Ulices Hayes MD (Physician) Related Notes: Original Note by Nataliia Lindsey RN (Registered Nurse) filed at 03/19/[address] [facility] Service: Interventional Pain Management History and Physical Note Tracie Farah is a 22 y.o. female who presents to the office today for left calf pain. She rates her pain at its worst a 9/10, at its least a 7/10, on average a 8/10 and is currently a 8/10. This patient first was injured in 2001 fracturing her left ankle on trampoline. She ultimately underwent 8 total surgeries on her left lower leg and foot. In 2006 the patient underwent a neuroma excision and developed symptoms of complex regional pain syndrome which have persisted ever since. She has undergone extensive therapy at [facility] at pain clinics in [place] as well and [place], [place]. She has had sympathetic nerv e blocks with no benefit. She also has been on multiple medications. The pain medications do help her function on a daily basis but certainly do not completely control her pain. She cu rrently is taking approximately 200 mg morphine equivalence per day in the form of oxycodone and hydrocodone. This is not adequately controlling her pain. The patient also underwent a trial of dorsal column stimulation without significant benefit. She is also undergoing hyper baric oxygen treatment which did somewhat improve the circulation in her left lower leg but did not affect her pain at all. She currently is not having significant problems related to ischemia but if she were to develop those she may be a candidate for further hyperbaric nicolasa tments. She presents for evaluation of other possible treatments for her pain. The patient h as done extensive research on this problem as well. At her last visit she was provided with printed and PVD materials regarding intrathecal medications for control pain. We also discus sed other somewhat experimental types of treatments for CRPS including nasal ketamine. She r eturns today to further discuss her treatment options. Review of Systems Gastrointestinal: Positive for nausea and vomiting. Musculoskeletal: Positive for myalgias, back pain and arthralgias. Psychiatric/Behavioral: Positive for disturbed wake/sleep cycle. The patient is nervous/anx ious. All other systems reviewed and are negative. Objective: Physical Exam General: Well developed, well nourished, in no acute distress. Alert, oriented x4. Head: Normocephalic and atraumatic. Eyes: Emery conjunctiva and sclera clear Mouth: No deformity or lesions with good dentition. Throat pink and moist; No exudates. Lungs: Clear bilaterally to auscultation. Normal air entry bilaterally. Heart: Normal S1, S2 without murmurs, rubs, gallops, or clicks. Abdomen: Normal bowel sounds; no hepatosplenomegaly no ventral, umbilical hernias or masses noted. S oft, non-tender. Musculoskeletal: There is a slightly dusky appearance to the patient's left calf and foot relative to the ri ght. There hours not phoebe cyanosis. The patient has quite significant allodynia with withdr awal with very light touch to her left lower leg. There is prominent hair growth in the left lower leg. There is also edema visible left leg. The patient wears kneelength pants to avoi d painful contact with her left leg. DETAILED NEUROLOGIC EXAM MENTAL STATUS: Alert and oriented to time, place and person Affect is normal Memory-intact. Fund of knowledge normal Speech fluent, no expressive issues STATION/GAIT: Upright, non-shuffling mildly antalgic gait SENSORY: Sensation intact to light touch/pinprick from C2-S2 dermatomes with hyperalgesia and allody manish in her entire left leg from the knee down. Skin: Warm, dry, intact without lesions or rashes. Psych: Alert and cooperative; normal mood and bright affect; normal attention span and concentrati on; mood congruent, denies thoughts of self harm. Assessment and Plan: Chronic Issues Addressed: Chronic pain syndrome This patient first was injured in 2001 fracturing her left ankle on trampoline. She ultimat kirill underwent 8 total surgeries on her left lower leg and foot. In 2006 the patient underwen t a neuroma excision and developed symptoms of complex regional pain syndrome which have per sisted ever since. She has undergone extensive therapy at [facility] at pain clinics in [place] as well and [place], [place]. She has had sympathetic nerve blocks with no benefit. She also has been on multiple medications. The pain medications do help he r function on a daily basis but certainly do not completely control her pain. She currently is taking approximately 200 mg morphine equivalence per day in the form of oxycodone and hyd rocodone. This is not adequately controlling her pain. The patient also underwent a trial of dorsal column stimulation without significant benefit. She is also undergoing hyperbaric ox ygen treatment which did somewhat improve the circulation in her left lower leg but did not affect her pain at all. She currently is not having significant problems related to ischemia but if she were to develop those she may be a candidate for further hyperbaric treatments. She presents for evaluation of other possible treatments for her pain. The patient has done extensive research on this problem as well. I had an extensive discussion with the patient regarding possible treatments. Although I sade dodson don't like to consider intrathecal pain medications on a patient this young, she has exhausted nearly all other treatments with significant chance of benefit. She has reviewed DVD imprinting materials on this type of therapy. She is discussed at length with her parent s who were present at today's visit. After considering all options the patient is interested in proceeding with a trial of intrathecal pain medications for control of her chronic intra ctable pain. We will therefore schedule the patient for a trial of intrathecal pain medicati ons. If this trial is successful in giving her significant relief of her pain then she would be a candidate for implantation of an intrathecal pain medication delivery system. VITAL SIGNS: BP: 127/77 Pulse: 81 Ht: 1.651 m (5' 5") Wt: 85.73 kg (189 lb) BMI: 31.45 kg/m2 SpO2: 96% MEDICATIONS: FLUoxetine HCl (Cap) PROzac 20 MG Hydrocodone-Acetaminophen (Tab) NORCO 10-325 MG Take 1 tablet by mouth every 6 (six) hours as needed. Ibuprofen (Tab) ADVIL,MOTRIN 200 MG Take 200 mg by mouth every 6 (six) hours as needed. LORazepam (Tab) ATIVAN 2 MG Take 2 mg by mouth every 6 (six) hours as needed. Melatonin (Tab) Melatonin 5 MG Take by mouth. OxyCODONE HCl (Cap) OXY-IR 5 MG Take 5 mg by mouth every 4 (four) hours as needed. Promethazine HCl (Tab) PHENERGAN 25 MG Take 25 mg by mouth every 6 (six) hours as needed. TraZODone HCl (Tab) DESYREL 100 MG Take 50 mg by mouth nightly. No past medical history on file. Past Surgical History Procedure Date Ankle surgery to 05/2007 8 surgeries total Tonsillectomy 1998 Hemorroidectomy 2009 Spinal cord stimulator - trial 2011 Dr. Beulah BROWN -Failed- History Social History Marital Status: Single Spouse Name: N/A Number of Children: N/A Years of Education: N/A Occupational History Not on file. Social History Main Topics Smoking status: Never Smoker Smokeless tobacco: Never Used Alcohol Use: No Drug Use: Sexually Active: Other Topics Concern Not on file Social History Narrative No narrative on file There were no vitals taken for this visit. No prescriptions prior to admission Allergies Allergen Reactions Morphine Anaphylaxis No changes. Plan: Placement of intrathecal catheter for trial of intrathecal pain medication for contro l of chronic intractable pain. documented in this encounter Miscellaneous Notes Plan of Care - Conversion Transaction, Provider Unknown - 03/22/2013 8:39 AM PDT Plan of Care by Ava Sue RN at 03/22/13838 Author: Ava Sue RN Service: (none) Author Type: Registered Nurse Filed: 03/22/13838 Date of Service: 03/22/13838 Status: Signed Pig Machine Operator: Ava Sue RN (Registered Nurse) Problem: Pain Goal: Patient s pain/discomfort is manageable Assess and monitor patient s pain using appropriate pain scale. Collaborate with interdis ciplinary team and initiate plan and interventions as ordered. Re-assess patient s pain le jackson approximately 1-2 hours after pain management intervention. Premedicate as needed. Outcome: Not Progressing Patient has chronic left foot pain; current admission for pain pump trial which Dr. Hayes does not feel will benefit patient as patient did not seem to have any relief with intrathe richard pain pump Problem: Safety Goal: Patient will be injury free during hospitalization Assess and monitor vitals signs, neurological status including level of consciousness and o rientation. Assess patient s risk for falls and implement fall prevention plan of care and interventions per hospital policy. Ensure arm band on, uncluttered walking paths in room, adequate room lighting, call light a nd overbed table within reach, bed in low position, wheels locked, side rails up per policy, and non-skid footwear provided. Outcome: Progressing Up with assistance lan o f Care - Conversion Transaction, Provider Unknown - 03/22/2013 2:15 AM PDTFormatting of thi s note might be different from the original. Plan of Care by Marleen Sheppard RN at 03/22/13214 Author: Marleen Sheppard RN Service: (none) Author Type: Registered Nurse Filed: 03/22/13214 Date of Service: 03/22/13 0215 Status: Signed Pig Machine Operator: Marleen Sheppard RN (Registered Nurse) Problem: Pain Goal: Patient s pain/discomfort is manageable Assess and monitor patient s pain using appropriate pain scale. Collaborate with interdis ciplinary team and initiate plan and interventions as ordered. Re-assess patient s pain le jackson approximately 1-2 hours after pain management intervention. Premedicate as needed. Outcome: Not Progressing Patient has not reported any decrease to pain level with current measures. Continue to incr ease rates per orders to manage pain. Problem: Safety Goal: Patient will be injury free during hospitalization Assess and monitor vitals signs, neurological status including level of consciousness and o rientation. Assess patient s risk for falls and implement fall prevention plan of care and interventions per hospital policy. Ensure arm band on, uncluttered walking paths in room, adequate room lighting, call light a nd overbed table within reach, bed in low position, wheels locked, side rails up per policy, and non-skid footwear provided. Outcome: Progressing Safety measures in place. Problem: Daily Care Goal: Daily care needs are met Assess and monitor ability to perform self care and identify potential discharge needs. Outcome: Progressing Patient reports needs met. lan o f Care - Conversion Transaction, Provider Unknown - 03/21/2013 10:58 AM PDTFormatting of thi s note might be different from the original. Plan of Care by Ava Sue RN at 03/21/13 1058 Author: Ava Sue RN Service: (none) Author Type: Registered Nurse Filed: 03/21/13 1058 Date of Service: 03/21/131057 Status: Signed Pig Machine Operator: Ava Sue RN (Registered Nurse) Problem: Pain Goal: Patient s pain/discomfort is manageable Assess and monitor patient s pain using appropriate pain scale. Collaborate with interdis ciplinary team and initiate plan and interventions as ordered. Re-assess patient s pain le jackson approximately 1-2 hours after pain management intervention. Premedicate as needed. Outcome: Progressing Trial intrathecal pain pump in place; patient continues to require oral narcotics to supple ment for pain control lan o f Care - Conversion Transaction, Provider Unknown - 03/20/2013 7:00 PM PDTFormatting of thi s note might be different from the original. Plan of Care by Justo Romeo RN at 03/20/131899 Author: Justo Romeo RN Service: (none) Author Type: Registered Nurse Filed: 03/20/132153 Date of Service: 03/20/131899 Status: Signed Pig Machine Operator: Justo Romeo RN (Registered Nurse) Problem: Pain Goal: Patient s pain/discomfort is manageable Assess and monitor patient s pain using appropriate pain scale. Collaborate with interdis ciplinary team and initiate plan and interventions as ordered. Re-assess patient s pain le jackson approximately 1-2 hours after pain management intervention. Premedicate as needed. Outcome: Not Progressing Patient's pain will be controlled while in hospital. Problem: Safety Goal: Patient will be injury free during hospitalization Assess and monitor vitals signs, neurological status including level of consciousness and o rientation. Assess patient s risk for falls and implement fall prevention plan of care and interventions per hospital policy. Ensure arm band on, uncluttered walking paths in room, adequate room lighting, call light a nd overbed table within reach, bed in low position, wheels locked, side rails up per policy, and non-skid footwear provided. Outcome: Progressing Patient will sustain no injuries while in hospital. Problem: Daily Care Goal: Daily care needs are met Assess and monitor ability to perform self care and identify potential discharge needs. Outcome: Progressing Patient will perform ADL's as independently as possible. Problem: Psychosocial Needs Goal: Demonstrates ability to cope with hospitalization/illness Assess and monitor patients ability to cope with his/her illness. Outcome: Progressing Patient will discuss concerns with family and staff. p Not e - Ulices Hayes MD - 03/20/2013 11:24 AM PDT Op Note by Ulices Hayes MD at 03/20/13 1123 Author: Ulices Hayes MD Service: Interventional Pain Management Author Type: Physic deya Filed: 03/20/13 1132 Date of Service: 03/20/131123 Status: Signed Pig Machine Operator: Ulices Hayes MD (Physician) [facility] Service: Interventional Pain Management Operative Note Pre-operative Diagnosis: #1. Complex regional pain syndrome. #2. Chronic pain syndrome Post-operative Diagnosis: Same Procedure(s): Placement of intrathecal catheter for trial of intrathecal pain medications for pain control. Surgeon: ULICES HAYES MD Supervisor Microfilm Duplicating Unit(s): none Anesthesia: Moderate sedation and local anesthesia. The patient had 3 mg of Versed and 100 mcg of fentanyl. Estimated Blood Loss: Minimal Other: Implants: Ventura catheter placed into the intrathecal space. Indications: See pre-operative history and physical. Findings: Routine placement of intrathecal catheter at the L2-3 interspace. Complications: None apparent Description of Procedure: After informed consent was obtained the patient was taken to the procedure suite and placed in the prone position with her abdomen supported by pillows. Flu oroscopy was used to identify the L2-3 interspace. Her back was prepped with Chlora-Prep and draped in the usual sterile fashion. The skin and subcutaneous tissues at the knee replacem ent site were anesthetized with 5 cc of 1% lidocaine utilizing a 25-gauge 1-1/2 inch needle. Under fluoroscopic guidance a 17-gauge two-way needle was placed into the intrathecal space via a left paramedian approach. Free flow of CSF was obtained on first pass. A Ventura epidur al catheter was then passed through the needle into the intrathecal space. The needle was th en removed. The catheter was advanced in the intrathecal space at about 6 cm before removal of the needle. The catheter was then secured to the skin using a Stay-Fix dressing. The patient tolerated the procedure extremely well and was taken to the recovery area until she could be transferred to the surgical floor for a trial of intrathecal narcotics for hudson n control. Condition: Stable ULICES HAYES MD 03/20/2013 documented in this encounter Plan of Treatment [...] + + documented in this encounter Results FL C-Arm < 1 Hour (03/20/2013 11:13 AM PDT) [...] Note | + + | Pete Cantrell Conversion - 07/06/2019 5:35 PM PDT This is [...]
--- OUTSIDE RECORDS SUMMARY | ~2020-05-29 | XMS | Encounter Summary ---
Demographics + + + | Address | [address] | | | [place] [address] | + + + | Home Phone | | + + + | Preferred Language | Unknown | + + + | Marital Status | Single | + + + | Gnosticism Affiliation | FMD | + + + [...] Team Providers + +------+ + | Care Digital Account Coordinator Name | Role | Phone | + +------+ + | Allegra Chaudhary | PCP | | + +------+ + Encounter Details +--------+ + + + + | Date | Type | Department | Care Team | Description | +--------+ + + + + | 08/06/ | Hospital | Registration H[facility] | | | | 2016 | Encounter | [id number] | | | | | | [place], | | | | | | [place] [phone] | | | +--------+ + + + [...]
--- OUTSIDE RECORDS SUMMARY | ~2020-05-29 | XMS | Encounter Summary ---
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 verify patient's home intranasal Ketamine. Patient bro ught the medication with her, it has been sent to pharmacy. Will assist and order Ketamine ggt. Given patient's report of "electric shocks" with Ketami ne infusions will start at a sub-clinical dose and give parameters to titrate up slowly. Re commend avoiding opioids as much as possible as this will only complicate her abdominal pain . Given her long standing history of chronic pain, her acceptable level of pain being 0/10 is unrealistic. Will follow peripherally, please place consult request in [facility] if requesting an official co nsult. Please page APS with any q's or concerns. [phone] Ni Rubio MD Pain Fellow Anesthesiology and Pain Management [facility] etty Booth MD - 03/19/2017 2:05 PM PDT General Internal Medicine 5 Progress Note ID: Tracie Farah is a 26 yof h/o left ankle fracture c/b complex regional pain sy ndrome, anxiety/depression who presents with recurrent abdominal pain and nausea of unknown etiology. Current Symptoms: Pain somewhat improved, continued vomiting, has had BMs. Current Medications: acetaminophen (TYLENOL) suppository 650 mg, 650 mg, rectal, Q6H PRN aluminum-magnesium hydroxide-simethicone (MAALOX; MYLANTA) 200-200-20 mg/5 mL suspension 15 mL, 15 mL, oral, Q6H PRN enoxaparin (LOVENOX) injection 40 mg, 40 mg, subcutaneous, QPM heparin 10 unit/mL IV flush syringe 50 Units, 50 Units, intravenous, PRN ketorolac (TORADOL) injection 30 mg, 30 mg, intravenous, Q6H PRN LORazepam (ATIVAN) injection 1 mg, 1 mg, intravenous, Q12H PRN MEDICATION HELP, , Intranasal, Q3H PRN melatonin tablet 3 mg, 3 mg, oral, HS PRN omeprazole (PRILOSEC) capsule 20 mg, 20 mg, oral, BID ondansetron (ZOFRAN) injection 4 mg, 4 mg, intravenous, Q12H PRN polyethylene glycol (MIRALAX) packet 34 g, 34 g, oral, BID prochlorperazine (COMPAZINE) injection 5 mg, 5 mg, intravenous, Q6H PRN senna (SENOKOT) tablet 1 tablet, 1 tablet, oral, BID PRN Physical Examination: Vitals: BP 102/52 | Pulse 68 | Temp 36.8 C (98.2 F) | RR 14 | Ht 1.626 m (5' 4") | Wt 6 6.7 kg (147 lb 0.8 oz) | SpO2 98% | BMI 25.24 kg/(m^2) Systolic (24hrs), Av , Min:102 , Max:109 Diastolic (24hrs), Av, Min:52, Max:96 Pulse Av.7 Min: 68 Max: 118 Temp Av.6 C (97.9 F) Min: 36.5 C (97.7 F) Max: 36.8 C (98.2 F) Resp Av Min: 14 Max: 14 Intake/Output Summary (Last 24 hours) at 03/19/17 1405 Last data filed at 03/19/17 1342 Gross per 24 hour Intake 230 ml Output 5 ml Net 225 ml Wt Readings from Last 3 Encounters: 03/18/17 66.7 kg (147 lb 0.8 oz) 01/31/17 69 kg (152 lb 1.9 oz) 01/11/17 68.9 kg (151 lb 12.8 oz) Physical Exam: General: Ill appearing young woman, resting in bed in moderate distress. HEENT: NCAT, PERRL, EOMI, mucous membranes moist, oropharynx clear. Lungs: Breathing nonlabored. CTAB, no rales, ronchi, or wheezes. Heart: Normal S1S2, no murmurs, rubs, or gallops. Abd: Soft, mildly tender to palpation, worse over epigastrium without rebound or guarding. Normoactive bowel sounds. No organomegaly. Neuro: Alert, oriented to person, place, time, and situation. Moving all extremities. Laboratory Interpretation: Recent Labs 03/18/17 2252 WBC 8.87 HB 12.9 HCT 37.1 PLT 267 NEUTROPERC 58.7 LYMPHPERC 33.5 MONOPERC 5.6 BASOPERC 0.7 EOSPERC 1.2 Recent Labs 03/18/17 2252 NA 144 K 3.5 CL 108 BICARB 28 BUN 11 CR 0.81 CA 8.8 Recent Labs 03/18/17 2252 AST 9 ALT 20 TBILI 0.3 ALB 4.0 TP 7.2 Recent Labs 03/18/17 2252 GLU 82 Lipase 103 Microbiology: Urine culture pending Imaging: XR abdomen FINDINGS: No bowel gas pattern without radiographic evidence of small bowel obstruction. Minimal volume of fecal matter in colon. No evident pneumatosis, portal venous gas, or p neumoperitoneum. No hepatosplenomegaly or abnormal soft tissue calcification. No evident osseous abnormality. An IUD is visualized projecting within the suspected location of the u terus. IMPRESSION: Normal. Brief Summary: Tracie Farah is a 26 yof h/o left ankle fracture c/b complex regional pain syndrom e, anxiety/depression who presents with recurrent abdominal pain and nausea of unknown etiol ogy. Assessment and Plan # recurrent abdominal pain, nausea 9 days of pain, cramping, emesis. Vss, labs w/o abnormality. Has had normal gastric emptyin g study, normal egd (prior with e/o reflux,) anorectal manometry (no rair,) sitz marker test (as episodes seem to correlate with constipation,) and mr enterography. C/f functional ibs- c vs cyclic vomiting syndrome, as pt has acute-onset, discreet episodes occurring multiple t imes yearly. - Consult GI today per outpt GI fellow recommendation - 1L lr - continue miralax, 34g bid, mg citrate in am - ketorolac, 30mg iv q6 + rectal acetaminophen for pain. Consider dilaudid if unable to co ntrol, avoid for now in the setting of constipation - prochlorperazine, 5mg q6 prn first line - ondansetron, 4mg q12 prn second line - lorazepam, 1mg q12 prn third line - pt declines metoclopromide - simethicone prn - omeprazole, 20mg bid # complex regional pain syndrome # anxiety/depression - continue intranasal ketamine - continue lamotrigine Fluids/Electrolytes/Nutrition: Clear liquids Analgesia: ketorolac, acetaminophen rectal Thromboembolic ppx: enoxaparin Disposition: pending improvement in nausea, pain Code status: FULL CODE Pt seen and discussed with Dr. Martinez, who agrees with my assessment and plan. Letty Booth MD Internal Medicine, PGY-1 Pager #[phone] documented in this en counter Plan of Treatment Not on filedocumented as of this encounter Procedures + +--------+ + + + | Procedure Name | Priori | Date/Time | Associated Diagnosis | Comments | | | ty | | | | + +--------+ + + + | BASIC METABOLIC SET | Routin | 03/21/2017 | | Results for this | | (NA, K, CL, TCO2, | e | 5:35 AM | | procedure are in the | | BUN, CR, GLU, CA) | | PDT | | results section. | + +--------+ + + + | BASIC METABOLIC SET | Routin | 03/20/2017 | | Results for this | | (NA, K, CL, TCO2, | e | 4:15 AM | | procedure are in the | | BUN, CR, GLU, CA) | | PDT | | results section. | + +--------+ + + + | X-RAY ABDOMEN 1 VIEW | Routin | 03/19/2017 | | Results for this | | | e | 6:52 AM | | procedure are in the | | | | PDT | | results section. | + +--------+ + + + | 12 LEAD ECG | Routin | 03/18/2017 | | Results for this | | | e | 11:44 PM | | procedure are in the | | | | PDT | | results section. | + +--------+ + + + | CBC AND AUTO DIFF | Urgent | 03/18/2017 | | Results for this | | | | 10:52 PM | | procedure are in the | | | | PDT | | results section. | + +--------+ + + + | CBC, WITH | Urgent | 03/18/2017 | | Results for this | | DIFFERENTIAL | | 10:52 PM | | procedure are in the | | | | PDT | | results section. | + +--------+ + + + | COMPLETE METABOLIC | Routin | 03/18/2017 | | Results for this | | SET | e | 10:52 PM | | procedure are in the | | (NA,K,CL,CO2,BUN,CRE | | PDT | | results section. | | AT,GLUC,CA,AST,ALT,B | | | | | | ELENITA TOTAL,ALK | | | | | | PHOS,ALB,PROT TOTAL) | | | | | + +--------+ + + + | LIPASE, PLASMA | Routin | 03/18/2017 | | Results for this | | | e | 10:52 PM | | procedure are in the | | | | PDT | | results section. | + +--------+ + + + | HCG BETA QUANT, | Urgent | 03/18/2017 | | Results for this | | PLASMA | | 10:52 PM | | procedure are in the | | | | PDT | | results section. | + +--------+ + + + | UA, DIPSTICK ONLY | Urgent | 03/18/2017 | | Results for this | | | | 9:42 PM | | procedure are in the | | | | PDT | | results section. | + +--------+ + + + documented in this encounter Results BASIC METABOLIC SET (NA, K, CL, TCO2, BUN, CR, GLU, CA) (03/21/2017 5:35 AM PDT) + +---------+ + + + | Component | Value | Ref Range | Performed | Pathologist | | | | | At | Signature | + +---------+ + + + | GLUCOSE, | 86 | 60 - 99 mg/dL | [facility] | | | PLASMA | | | LABORATORY | | | (LAB) | | | SERVICES, | | | | | | CORE | | + +---------+ + + + | BUN, PLASMA | 16 | 6 - 20 mg/dL | [facility] | | | (LAB) | | | LABORATORY | | | | | | SERVICES, | | | | | | CORE | | + +---------+ + + + | CREATININE | 0.86 | 0.60 - 1.10 | [facility] | | | PLASMA | | mg/dL | LABORATORY | | | (LAB) | | | SERVICES, | | | | | | CORE | | + +---------+ + + + | EGFR | >60 | >60 mL/min | [facility] | | | - | | | LABORATORY | | | [facility] | | | SERVICES, | | | | | | CORE | | + +---------+ + + + | EGFR NON | >60 | >60 mL/min | [facility] | | | -KEY | | | LABORATORY | | | RICAN | | | SERVICES, | | | | | | CORE | | + +---------+ + + + | SODIUM, | 141 | 136 - 145 | [facility] | | | PLASMA | | mmol/L | LABORATORY | | | (LAB) | | | SERVICES, | | | | | | CORE | | + +---------+ + + + | POTASSIUM, | 4.2 | 3.4 - 5.0 | [facility] | [...] +---------+ + + + | CALCIUM, | 8.4 (L) | 8.6 - 10.2 | [facility] | | | PLASMA | | mg/dL | LABORATORY | | | (LAB) | | | SERVICES, | | | | | | CORE | | + +---------+ + + + | ANION GAP | 6 | mmol/L | [facility] | | | [...] | + + + + + | [facility] | [address] | [place] [address] | | | SERVICES, CORE | [address] | | | + + + + + BASIC METABOLIC SET (NA, K, CL, TCO2, BUN, CR, GLU, CA) (03/20/2017 4:15 AM PDT) + +---------+ + + + | Component | Value | Ref Range | Performed | Pathologist | | | | | At | Signature | + +---------+ + + + | GLUCOSE, | 119 (H) | 60 - 99 mg/dL | [facility] | | | PLASMA | | | LABORATORY | | | (LAB) | | | SERVICES, | | | | | | CORE | | + +---------+ + + + | BUN, PLASMA | 5 (L) | 6 - 20 mg/dL | [facility] | | | (LAB) | | | LABORATORY | | | | | | SERVICES, | | | | | | CORE | | + +---------+ + + + | CREATININE | 0.77 | 0.60 - 1.10 | [facility] | | | PLASMA | | mg/dL | LABORATORY | | | (LAB) | | | SERVICES, | | | | | | CORE | | + +---------+ + + + | EGFR | >60 | >60 mL/min | [facility] | | | - | | | LABORATORY | | | [facility] | | | SERVICES, | | | | | | CORE | | + +---------+ + + + | EGFR NON | >60 | >60 mL/min | [facility] | | | -KEY | | | LABORATORY | | | RICAN | | | SERVICES, | | | | | | CORE | | + +---------+ + + + | SODIUM, | 144 | 136 - 145 | [facility] | [...] +---------+ + + + | CHLORIDE, | 109 (H) | 97 - 108 mmol/L | [facility] [...] +---------+ + + + | CALCIUM, | 7.8 (L) | 8.6 - 10.2 | [facility] | | | PLASMA | | mg/dL | LABORATORY | | | (LAB) | | | SERVICES, | | | | | | CORE | | + +---------+ + + + | ANION GAP | 8 | mmol/L | [facility] | | | [...] | + + + + + | [facility] | [address] | [place] [address] | | | SERVICES, CORE | [address] | | | + + + + + X-RAY ABDOMEN 1 VIEW (03/19/2017 6:52 AM PDT) + + | Specimen | + + | | + + + + + | Narrative | Performed At | + + + | EXAM: ABDOMEN 1 VIEW HISTORY: Nausea, vomiting. Evaluate for | [facility] | | constipation/stool burden. COMPARISON: MR arthrography 01/31/17 | RADIOLOGY VOICE | | FINDINGS: No bowel gas pattern without radiographic evidence | RECOGNITION | | of small bowel obstruction. Minimal volume of fecal matter in colon. | | | No evident pneumatosis, portal venous gas, or pneumoperitoneum. | | | No hepatosplenomegaly or abnormal soft tissue calcification. No | | | evident osseous abnormality. An IUD is visualized projecting within | | | the suspected location of the uterus. IMPRESSION: Normal. | | | I have personally reviewed the images and, if necessary, edited the | | | report. I agree with the report as now presented. | | + + + + + | Procedure Note | + + | Service Account, what3words Res In Interface - 03/19/2017 8:59 AM PDT EXAM: ABDOMEN 1 | | VIEWHISTORY: Nausea, vomiting. Evaluate for constipation/stool burden.COMPARISON: MR | | arthrography 01/31/17FINDINGS: No bowel gas pattern without radiographic evidence of | | small bowel obstruction. Minimal volume of fecal matter in colon. No evident | | pneumatosis, portal venous gas, or pneumoperitoneum. No hepatosplenomegaly or abnormal | | soft tissue calcification. No evident osseous abnormality. An IUD is visualized | | projecting within the suspected location of the uterus.IMPRESSION:Normal.I have | | personally reviewed the images and, if necessary, edited the report. I agree with the | | report as now presented. | | | |IMPRESSION: | | | |Normal. | | | | | |I have [...] | | | + +---------+ + + 12 LEAD ECG (03/18/2017 11:44 PM PDT) + + + + + + | Component | Value | Ref Range | Performed | Pathologist | | | | | At | Signature | + + + + + + | VENTRICULAR | 71 | bpm | [facility] | | | RATE | | | OF | | | | | | CARDIOLOGY | | + + + + + + | ATRIAL RATE | 75 | ms | [facility] | | | | | | OF | | | | | | CARDIOLOGY | | + + + + + + | P-R | 140 | ms | [facility] | | | INTERVAL | | | OF | | | | | | CARDIOLOGY | | + + + + + + | P AXIS | 54 | deg | [facility] | | | | | | OF | | | | | | CARDIOLOGY | | + + + + + + | QRS | 78 | ms | [facility] | | | DURATION | | | OF | | | | | | CARDIOLOGY | | + + + + + + | QT | 368 | ms | [facility] | | | | | | OF | | | | | | CARDIOLOGY | | + + + + + + | QTC-BAJOSE L | 400 | ms | [facility] | | | | | | OF | | | | | | CARDIOLOGY | | + + + + + + | R AXIS | -6 | deg | [facility] | | | | | | OF | | | | | | CARDIOLOGY | | + + + + + + | T AXIS | 57 | deg | [facility] | | | | | | OF | | | | | | CARDIOLOGY | | + + + + + + | ECG | SINUS RHYTHM- NORMAL ECG | | [facility] | | | IMPRESSION | - | | OF | | | | | | CARDIOLOGY | | + + + + + + | ECG | Electronically signed | | [facility] | | | IMPRESSION | by: ISABEL BASSETT | | OF | | | | 03-22-2017 07:38:53 | | CARDIOLOGY | | + + + + + + + + | Specimen | + + | | + + + + + | Narrative | Performed At | + + + | | | + + + + + + + + | Performing | Address | City/State/Zipcode | Phone Number | | Organization | | | | + + + + + | [facility] | [address] | [place], [place] | | | CARDIOLOGY | [address] | [address] | | + + + + + CBC AND AUTO DIFF (03/18/2017 10:52 PM PDT) + + + + + + | Component | Value | Ref Range | Performed | Pathologist | | | | | At | Signature | + + + + + + | WHITE CELL | 8.87 | 3.50 - 10.80 | [facility] | | | COUNT | | K/cu mm | LABORATORY | | | | | | SERVICES, | | | | | | CORE | | + + + + + + | RED CELL | 4.07 | 4.00 - 5.20 | [facility] | | | COUNT | | M/cu mm | LABORATORY | | | | | | SERVICES, | | | | | | CORE | | + + + + + + | HEMOGLOBIN | 12.9 | 12.0 - 16.0 | [facility] | | | | | g/dL | LABORATORY | | | | | | SERVICES, | | | | | | CORE | | + + + + + + | HEMATOCRIT | 37.1 | 36.0 - 46.0 % | [facility] | | | | | | LABORATORY | | | | | | SERVICES, | | | | | | CORE | | + + + + + + | MCV | 91.2 | 80.0 - 96.0 fL | [facility] | | | | | | LABORATORY | | | | | | SERVICES, | | | | | | CORE | | + + + + + + | MCHC | 34.8 | 33.0 - 35.5 | [facility] | | | | | g/dL | LABORATORY | | | | | | SERVICES, | | | | | | CORE | | + + + + + + | RDW SD | 37.7 | 35.1 - 46.3 fL | [facility] | | | | | | LABORATORY | | | | | | SERVICES, | | | | | | CORE | | + + + + + + | PLATELET | 267 | 150 - 400 K/cu | [facility] | | | COUNT | | mm | LABORATORY | | | | | | SERVICES, | | | | | | CORE | | + + + + + + | MPV | 9.1 (L) | 9.7 - 12.3 fL | [facility] | | | | | | LABORATORY | | | | | | SERVICES, | | | | | | CORE | | + + + + + + | NRBC% | 0.0 | 0.0 - 0.3 % | [facility] | | | | | | LABORATORY | | | | | | SERVICES, | | | | | | CORE | | + + + + + + | NRBC# | 0.00 | 0.00 - 0.02 | [facility] | | | | | K/cu mm | LABORATORY | | | | | | SERVICES, | | | | | | CORE | | + + + + + + | NEUTROPHIL | 58.7 | 50.0 - 70.0 % | [facility] | | | % | | | LABORATORY | | | | | | SERVICES, | | | | | | CORE | | + + + + + + | LYMPHOCYTE | 33.5 | 18.0 - 42.0 % | [facility] | | | % | | | LABORATORY | | | | | | SERVICES, | | | | | | CORE | | + + + + + + | MONOCYTE % | 5.6 | 3.5 - 9.0 % | [facility] | | | | | | LABORATORY | | | | | | SERVICES, | | | | | | CORE | | + + + + + + | EOS % | 1.2 | 1.0 - 3.0 % | [facility] | | | | | | LABORATORY | | | | | | SERVICES, | | | | | | CORE | | + + + + + + | BASO % | 0.7 | 0.0 - 2.0 % | [facility] | | | | | | LABORATORY | | | | | | SERVICES, | | | | | | CORE | | + + + + + + | IG% | 0.3Comment: Immature | 0.0 - 0.6 % | [facility] | | | | Granulocytes (IG) | | LABORATORY | | | | include metamyelocytes, | | SERVICES, | | | | myelocytes and | | CORE | | | | promyelocytes. Bands | | | | | | are not included in the | | | | | | IG count. Bands are | | | | | | included in the | | | | | | neutrophil count. | | | | + + + + + + | NEUTROPHIL | 5.20 | 1.80 - 7.70 | [facility] | | | # | | K/cu mm | LABORATORY | | | | | | SERVICES, | | | | | | CORE | | + + + + + + | LYMPHOCYTE | 2.97 | 1.00 - 4.80 | [facility] | | | # | | K/cu mm | LABORATORY | | | | | | SERVICES, | | | | | | CORE | | + + + + + + | MONOCYTE # | 0.50 | 0.10 - 0.90 | [facility] | | | | | K/cu mm | LABORATORY | | | | | | SERVICES, | | | | | | CORE | | + + + + + + | EOS # | 0.11 | 0.00 - 0.50 | [facility] | | | | | K/cu mm | LABORATORY | | | | | | SERVICES, | | | | | | CORE | | + + + + + + | BASO # | 0.06 | 0.00 - 0.10 | [facility] | | | | | K/cu mm | LABORATORY | | | | | | SERVICES, | | | | | | CORE | | + + + + + + | IG# | 0.03 | 0.00 - 0.03 | [facility] | | | | | K/cu mm | LABORATORY | | | | | | SERVICES, | | | | | | CORE | | + + + + + + + + | Specimen | + + | Blood - Blood | | (substance) | + + + + + | Narrative | Performed At | + + + | Immature Granulocytes (IG) include metamyelocytes, myelocytes | [facility] | | and promyelocytes. Bands are not included in the IG count. Bands are | LABORATORY | | included in the neutrophil count. | [facility] | + + + + + + + + | Performing | Address | City/State/Zipcode | Phone Number | | Organization | | | | + + + + + | [facility] | [address] | [place] [address] | | | SERVICES, CORE | [address] | | | + + + + + LIPASE, PLASMA (03/18/2017 10:52 PM PDT) + +---------+ + + + | Component | Value | Ref Range | Performed | Pathologist | | | | | At | Signature | + +---------+ + + + | LIPASE | 103 (L) | 152 - 353 U/L | [...] [facility] | [address] | [place] [address] | | | SERVICES, CORE | [address] | | | + + + + + HCG BETA QUANT, PLASMA (03/18/2017 10:52 PM PDT) + +-------+ + + + | Component | Value | Ref Range | Performed | Pathologist | | | | | At | Signature | + +-------+ + + + | HCG BETA, | <1 | <3 mIU/mL | [facility] | | | PLASMA | | | LABORATORY | | | | | | SERVICES, | | | | | | CORE | | + +-------+ + + + + + | Specimen | + + | Blood - Blood | | (substance) | + + + + + | Narrative | Performed At | + + + | HCG Reference ranges Males: | [facility] | | <2 mIU/mL Non- Females: <3 mIU/mL | LABORATORY | | Females: >5 mIU/mL HCG Ranges During Normal | SERVICES, CORE | | : Weeks Post Last Menstrual Period: Approximate hCG | | | Range, mIU/mL 3-4 weeks | | | 9 - 130 4-5 weeks | | | 75 - 2600 5-6 weeks | | | 850 - 15560 6-7 weeks | | | 4000 - 612570 7-12 weeks | | | 97899 - 085508 12-16 weeks | | | 50279 - 559018 16-29 | | | weeks 1400 - 24726 | | | 29-41 weeks 940 - 10867 | | | | | + + + + + + + + | Performing | Address | City/State/Zipcode | Phone Number | | Organization | | | | + + + + + | [facility] | [address] | [place] [address] | | | SERVICES, CORE | [address] | | | + + + + + COMPLETE METABOLIC SET (NA,K,CL,CO2,BUN,CREAT,GLUC,CA,AST,ALT,BILI TOTAL,ALK PHOS,ALB,PROT TOTAL) (03/18/2017 10:52 PM PDT) + +---------+ + + + | Component | Value | Ref Range | Performed | Pathologist | | | | | At | Signature | + +---------+ + + + | GLUCOSE, | 82 | 60 - 99 mg/dL | [facility] | | | PLASMA | | | LABORATORY | | | (LAB) | | | SERVICES, | | | | | | CORE | | + +---------+ + + + | BUN, PLASMA | 11 | 6 - 20 mg/dL | [facility] | | | (LAB) | | | LABORATORY | | | | | | SERVICES, | | | | | | CORE | | + +---------+ + + + | CREATININE | 0.81 | 0.60 - 1.10 | [facility] | | | PLASMA | | mg/dL | LABORATORY | | | (LAB) | | | SERVICES, | | | | | | CORE | | + +---------+ + + + | EGFR | >60 | >60 mL/min | [facility] | | | - | | | LABORATORY | | | [facility] | | | SERVICES, | | | | | | CORE | | + +---------+ + + + | EGFR NON | >60 | >60 mL/min | [facility] | | | -KEY | | | LABORATORY | | | RICAN | | | SERVICES, | | | | | | CORE | | + +---------+ + + + | SODIUM, | 144 | 136 - 145 | [facility] | | | PLASMA | | mmol/L | LABORATORY | | | (LAB) | | | SERVICES, | | | | | | CORE | | + +---------+ + + + | POTASSIUM, | 3.5 | 3.4 - 5.0 | [facility] | | | PLASMA | | mmol/L | LABORATORY | | | (LAB) | | | SERVICES, | | | | | | CORE | | + +---------+ + + + | CHLORIDE, | 108 | 97 - 108 mmol/L | [facility] | | | PLASMA | | | LABORATORY | | | (LAB) | | | SERVICES, | | | | | | CORE | | + +---------+ + + + | TOTAL CO2, | 28 | 21 - 32 mmol/L | [facility] | | | PLASMA | | | LABORATORY | | | (LAB) | | | SERVICES, | | | | | | CORE | | + +---------+ + + + | CALCIUM, | 8.8 | 8.6 - 10.2 | [facility] | | | PLASMA | | mg/dL | LABORATORY | | | (LAB) | | | SERVICES, | | | | | | CORE | | + +---------+ + + + | CALCIUM(ALB | 8.8 | 8.6 - 10.2 | [facility] | | | CORRECTED) | | mg/dL | LABORATORY | | | | | | SERVICES, | | | | | | CORE | | + +---------+ + + + | BILIRUBIN | 0.3 | 0.3 - 1.2 mg/dL | [facility] | | | TOTAL | | | LABORATORY | | | | | | SERVICES, | | | | | | CORE | | + +---------+ + + + | TOTAL | 7.2 | 6.4 - 8.2 g/dL | [facility] [...] + + + | ALK PHOS | 71 | 42 - 98 U/L | [facility] | | | | | | LABORATORY | | | | | | SERVICES, | | | | | | CORE | | + +---------+ + + + | AST(SGOT) | 9 | <=41 U/L | [facility] | | | | | | LABORATORY | | | | | | SERVICES, | | | | | | CORE | | + +---------+ + + + | ALT (SGPT) | 20 | <=60 U/L | [facility] | | | | | | LABORATORY | | | | | | SERVICES, | | | | | | CORE | | + +---------+ + + + | ANION GAP | 8 | mmol/L | [facility] | | | | | | LABORATORY | | | | | | SERVICES, | | | | | | CORE | | + +---------+ + + + | ANION | 8 | 4 - 11 mmol/L | [facility] [...] | + + + + + | [facility] | [address] | [place] [address] | | | [place], [place] | [address] | | | + + + + + AYLEEN TORRES (03/18/2017 9:42 PM PDT) + + + + + + | Component | Value | Ref Range | Performed | Pathologist | | | | | At | Signature | + + + + + + | COLOR(UR) | Yellow | | [facility] | | | | | | LABORATORY | | | | | | SERVICES, | | | | | | CORE | | + + + + + + | APPEARANCE | Sl.Cloudy | | [facility] | | | | | | LABORATORY | | | | | | SERVICES, | | | | | | CORE | | + + + + + + | GLUCOSE(UR) | Negative | Negative, 50.0 | [facility] | | | | | mg/dL | LABORATORY | | | | | | SERVICES, | | | | | | CORE | | + + + + + + | PROTEIN(LAB | 30.0 | Negative, 30.0 | [facility] | | | ) | | mg/dL | LABORATORY | | | | | | SERVICES, | | | | | | CORE | | + + + + + + | BILIRUBIN | Negative | Negative | [facility] | | | | | | LABORATORY | | | | | | SERVICES, | | | | | | CORE | | + + + + + + | UROBILINOGE | <2.0 | <2.0 mg/dL | [facility] | | | N | | | LABORATORY | | | | | | SERVICES, | | | | | | CORE | | + + + + + + | PH(UR) | 5.0 | 5.0 - 8.0 | [facility] | | | | | | LABORATORY | | | | | | SERVICES, | | | | | | CORE | | + + + + + + | BLOOD | Moderate (A) | Negative | [facility] | | | | | | LABORATORY | | | | | | SERVICES, | | | | | | CORE | | + + + + + + | KETONES | 5.0 (A) | Negative mg/dL | [facility] | | | | | | LABORATORY | | | | | | SERVICES, | | | | | | CORE | | + + + + + + | NITRITES | Negative | Negative | [facility] | | | | | | LABORATORY | | | | | | SERVICES, | | | | | | CORE | | + + + + + + | LEUKOCYTE | Trace (A) | Negative | [facility] | | | ESTERASE | | | LABORATORY | | | | | | SERVICES, | | | | | | CORE | | + + + + + + | SPECIFIC | 1.016Comment: Specific | 1.005 - 1.030 | [facility] | | | GRAVITY | Alta performed by | | LABORATORY | | | | refractometry | | SERVICES, | | | | [...] [facility] | [address] | [place] [address] | | | SERVICES, LILLIAN | [address] | | | + + + + + documented in this encounter Visit Diagnoses + + | Diagnosis | + + | Epigastric pain - Primary Abdominal pain, epigastric | + + | Pain of upper abdomen Abdominal pain, other specified site | + + | Intractable cyclical vomiting with nausea | + + | CRPS (complex regional pain syndrome), lower limb Causalgia of lower limb | + + | Irritable bowel syndrome with constipation Irritable bowel syndrome | + + documented in this encounter Administered Medications + +--------+---------+------+------+------+ | Medication Order | MAR | Action | Dose | Rate | Site | | | Action | Date | | | | + +--------+---------+------+------+------+ + +---+ | acetaminophen (TYLENOL) tablet | | | 650 mg 650 mg, oral, EVERY 4 | | | HOURS NEEDED, Starting Tu | | | 03/22/17 at 1704, Until Tue03/23/17 | | | at 2051, multimodal pain control | | + +---+ | | | + +---+ + +-------+ +-------+---+---+ | aluminum-magnesium | Given | 03/20/20 | 15 mL | | | | hydroxide-simethicone (MAALOX; | | 17 10:15 | | | | | MYLANTA) 200-200-20 mg/5 mL | | AM PDT | | | | | suspension 15 mL 15 mL, oral, | | | | | | | EVERY 6 HOURS NEEDED, Starting | | | | | | | 03/19/17 at 0412, Until Wed | | | | | | | 03/23/17 at 2051, dyspepsia | | | | | | + +-------+ +-------+---+---+ +-------+ +-------+---+---+ | Given | 03/20/20 | 15 mL | | | | | 17 2:09 | | | | | | AM PDT | | | | +-------+ +-------+---+---+ | Given | 03/19/20 | 15 mL | | | | | 17 4:30 | | | | | | AM PDT | | | | +-------+ +-------+---+---+ +---+---+ | | | +---+---+ + +-------+ +-------+---+---+ | DULoxetine (CYMBALTA) capsule | Given | 03/23/20 | 20 mg | | | | 20 mg 20 mg, oral, DAILY, First | | 17 10:56 | | | | | dose on Tue03/23/17 at 0945, | | AM PDT | | | | | Until Discontinued | | | | | | + +-------+ +-------+---+---+ +---+---+ | | | +---+---+ + +-------+ +-------+---+---------+ | enoxaparin (LOVENOX) injection | Given | 03/22/20 | 40 mg | | Abdomen | | 40 mg 40 mg, subcutaneous, EVERY | | 17 8:48 | | | | | EVENING, First dose on Tue | | PM PDT | | | | | 03/18/17 at 2100, Until | | | | | | | Discontinued | | | | | | + +-------+ +-------+---+---------+ +-------+ +-------+---+---------+ | Given | 03/21/20 | 40 mg | | Abdomen | | | 17 7:47 | | | | | | PM PDT | | | | +-------+ +-------+---+---------+ | Given | 03/20/20 | 40 mg | | Abdomen | | | 17 8:17 | | | | | | PM PDT | | | | +-------+ +-------+---+---------+ +---+---+ | | | +---+---+ + +-------+ + +---+---+ | heparin 10 unit/mL IV flush | Given | 03/22/20 | 50 Units | | | | syringe 50 Units 50 Units, | | 17 6:48 | | | | | intravenous, NEEDED, Starting | | AM PDT | | | | | 03/18/17 at 2153, Until Wed | | | | | | | 03/23/17 at 2051, line patency | | | | | | + +-------+ + +---+---+ +-------+ + +---+---+ | Given | 03/21/20 | 50 Units | | | | | 17 6:23 | | | | | | AM PDT | | | | +-------+ + +---+---+ | Given | 03/20/20 | 50 Units | | | | | 17 3:59 | | | | | | PM PDT | | | | +-------+ + +---+---+ +---+---+ | | | +---+---+ + +---------+ +---+-------+---+ | ketamine (KETALAR) 500 mg in | New Bag | 03/23/20 | | 3.5 | | | NaCl 0.9 % 50 mL IV infusion | | 17 7:23 | | mL/hr | | | intravenous, CONTINUOUS, Starting | | AM PDT | | | | | 03/19/17 at 1845, Until Wed | | | | | | | 03/23/17 at 2052 | | | | | | + +---------+ +---+-------+---+ + + +---+-------+---+ | Rate/Dose Verify | 03/23/20 | | 3.5 | | | | 17 4:10 | | mL/hr | | | | AM PDT | | | | + + +---+-------+---+ | Rate/Dose Verify | 03/23/20 | | 3.5 | | | | 17 12:00 | | mL/hr | | | | AM PDT | | | | + + +---+-------+---+ +---+---+ | | | +---+---+ + +-------+ +-------+---+---+ | ketorolac (TORADOL) injection | Given | 03/22/20 | 10 mg | | | | 10 mg 10 mg, intravenous, EVERY | | 17 6:41 | | | | | 6 HOURS NEEDED, Starting Mon | | AM PDT | | | | | 03/21/17 at 1929, Until 03/22/17 | | | | | | | at 1213, moderate pain | | | | | | + +-------+ +-------+---+---+ +-------+ +-------+---+---+ | Given | 03/21/20 | 10 mg | | | | | 17 11:13 | | | | | | PM PDT | | | | +-------+ +-------+---+---+ +---+---+ | | | +---+---+ + +-------+ +-------+---+---+ | ketorolac (TORADOL) injection | Given | 03/18/20 | 15 mg | | | | 15 mg 15 mg, intravenous, ONCE, | | 17 10:38 | | | | | 1 dose, [facility] 03/18/17 at 2145 | | PM PDT | | | | + +-------+ +-------+---+---+ +---+---+ | | | +---+---+ + +-------+ +-------+---+---+ | ketorolac (TORADOL) injection | Given | 03/19/20 | 15 mg | | | | 15 mg 15 mg, intravenous, ONCE, | | 17 4:30 | | | | | 1 dose, 03/19/17 at 0430 | | AM PDT | | | | + +-------+ +-------+---+---+ +---+---+ | | | +---+---+ + +-------+ +-------+---+---+ | ketorolac (TORADOL) injection | Given | 03/21/20 | 30 mg | | | | 30 mg 30 mg, intravenous, EVERY | | 17 10:48 | | | | | 6 HOURS NEEDED, Starting Sat | | AM PDT | | | | | 03/19/17 at 0400, Until Tue03/21/17 | | | | | | | at 1410, severe pain | | | | | | + +-------+ +-------+---+---+ +-------+ +-------+---+---+ | Given | 03/21/20 | 30 mg | | | | | 17 4:07 | | | | | | AM PDT | | | | +-------+ +-------+---+---+ | Given | 03/20/20 | 30 mg | | | | | 17 10:05 | | | | | | PM PDT | | | | +-------+ +-------+---+---+ +---+---+ | | | +---+---+ + +-------+ +-------+---+---+ | ketorolac (TORADOL) tablet 10 | Given | 03/21/20 | 10 mg | | | | mg 10 mg, oral, EVERY 6 HOURS | | 17 5:05 | | | | | NEEDED, Starting Tue03/21/17 at | | PM PDT | | | | | 1529, Until Tue03/21/17 at 1930, | | | | | | | moderate pain | | | | | | + +-------+ +-------+---+---+ +---+---+ | | | +---+---+ + +-------+ +-------+---+---+ | ketorolac (TORADOL) tablet 10 | Given | 03/23/20 | 10 mg | | | | mg 10 mg, oral, EVERY 6 HOURS | | 17 1:01 | | | | | NEEDED, Starting Tue03/22/17 at | | PM PDT | | | | | 1214, Until Tue03/23/17 at 205, | | | | | | | moderate pain | | | | | | + +-------+ +-------+---+---+ +-------+ +-------+---+---+ | Given | 03/23/20 | 10 mg | | | | | 17 4:14 | | | | | | AM PDT | | | | +-------+ +-------+---+---+ | Given | 03/22/20 | 10 mg | | | | | 17 6:45 | | | | | | PM PDT | | | | +-------+ +-------+---+---+ +---+---+ | | | +---+---+ + +---------+ + +-------+---+ | lactated Ringers IV 1,000 mL, | New Bag | 03/18/20 | 1,000 mL | 1000 | | | intravenous, ONCE, 1 dose, Fri | | 17 11:53 | | mL/hr | | | 03/18/17 at 2315 | | PM PDT | | | | + +---------+ + +-------+---+ +---+---+ | | | +---+---+ + +-------+ +--------+---+---+ | lamoTRIgine (LAMICTAL) tablet | Given | 03/23/20 | 200 mg | | | | 200 mg 200 mg, oral, DAILY, | | 17 7:29 | | | | | First dose on 03/19/17 at 1615, | | AM PDT | | | | | Until Discontinued | | | | | | + +-------+ +--------+---+---+ +-------+ +--------+---+---+ | Given | 03/22/20 | 200 mg | | | | | 17 7:50 | | | | | | AM PDT | | | | +-------+ +--------+---+---+ | Given | 03/21/20 | 200 mg | | | | | 17 10:47 | | | | | | AM PDT | | | | +-------+ +--------+---+---+ +---+---+ | | | +---+---+ + +-------+ +------+---+---+ | LORazepam (ATIVAN) injection 1 | Given | 03/19/20 | 1 mg | | | | mg 1 mg, intravenous, EVERY 12 | | 17 1:41 | | | | | HOURS NEEDED, Starting Fri | | PM PDT | | | | | 03/18/17 at 2151, Until 03/19/17 | | | | | | | at 1536, nausea/vomiting, fourth | | | | | | | line | | | | | | + +-------+ +------+---+---+ +-------+ +------+---+---+ | Given | 03/19/20 | 1 mg | | | | | 17 12:46 | | | | | | AM PDT | | | | +-------+ +------+---+---+ +---+---+ | | | +---+---+ + +-------+ +--------+---+---+ | LORazepam (ATIVAN) tablet 0.5 | Given | 03/22/20 | 0.5 mg | | | | mg 0.5 mg, oral, EVERY 6 HOURS | | 17 11:14 | | | | | NEEDED, Starting 03/19/17 at | | PM PDT | | | | | 1850, Until Tue03/23/17 at 2052, | | | | | | | anxiety, nausea/vomiting, fourth | | | | | | | line | | | | | | + +-------+ +--------+---+---+ +-------+ +--------+---+---+ | Given | 03/22/20 | 0.5 mg | | | | | 17 12:58 | | | | | | PM PDT | | | | +-------+ +--------+---+---+ | Given | 03/21/20 | 0.5 mg | | | | | 17 11:14 | | | | | | PM PDT | | | | +-------+ +--------+---+---+ +---+---+ | | | +---+---+ + +-------+ +--------+---+---+ | magnesium citrate liquid 296 mL | Given | 03/19/20 | 296 mL | | | | 296 mL, oral, ONCE, 1 dose, Sat | | 17 7:16 | | | | | 03/19/17 at 0700 | | AM PDT | | | | + +-------+ +--------+---+---+ +---+---+ | | | +---+---+ + +-------+ +--------+---+---+ | magnesium citrate liquid 296 mL | Given | 03/20/20 | 296 mL | | | | 296 mL, oral, ONCE, 1 dose, Sun | | 17 8:12 | | | | | 03/20/17 at 0815 | | AM PDT | | | | + +-------+ +--------+---+---+ +---+---+ | | | +---+---+ + +-------+ +--------+---+---+ | magnesium citrate liquid 296 mL | Given | 03/22/20 | 296 mL | | | | 296 mL, oral, DAILY NEEDED, | | 17 2:06 | | | | | Starting Tue03/22/17 at 1350, | | PM PDT | | | | | Until Tue03/23/17 at 2051, Second | | | | | | | line constipation | | | | | | + +-------+ +--------+---+---+ +---+---+ | | | +---+---+ + +-------+ +------+---+---+ | melatonin tablet 3 mg 3 mg, | Given | 03/22/20 | 3 mg | | | | oral, AT BEDTIME NEEDED, | | 17 11:14 | | | | | Starting Tue03/18/17 at 2156, | | PM PDT | | | | | Until Tue03/23/17 at 2051, | | | | | | | insomnia | | | | | | + +-------+ +------+---+---+ +-------+ +------+---+---+ | Given | 03/21/20 | 3 mg | | | | | 17 11:14 | | | | | | PM PDT | | | | +-------+ +------+---+---+ | Given | 03/20/20 | 3 mg | | | | | 17 10:06 | | | | | | PM PDT | | | | +-------+ +------+---+---+ +---+---+ | | | +---+---+ + +-------+ +-------+---+---+ | omeprazole (PRILOSEC) capsule | Given | 03/23/20 | 20 mg | | | | 20 mg 20 mg, oral, TWICE DAILY, | | 17 7:29 | | | | | First dose (after last | | AM PDT | | | | | modification) on Tue03/18/17 at | | | | | | | 2200, Until Discontinued | | | | | | + +-------+ +-------+---+---+ +-------+ +-------+---+---+ | Given | 03/22/20 | 20 mg | | | | | 17 8:48 | | | | | | PM PDT | | | | +-------+ +-------+---+---+ | Given | 03/22/20 | 20 mg | | | | | 17 7:50 | | | | | | AM PDT | | | | +-------+ +-------+---+---+ +---+---+ | | | +---+---+ + +-------+ +------+---+---+ | ondansetron (ZOFRAN) injection | Given | 03/22/20 | 4 mg | | | | 4 mg 4 mg, intravenous, EVERY 12 | | 17 8:48 | | | | | HOURS NEEDED, Starting Fri | | PM PDT | | | | | 03/18/17 at 2151, Until 03/23/17 | | | | | | | at 2051, nausea/vomiting, second | | | | | | | line | | | | | | + +-------+ +------+---+---+ +-------+ +------+---+---+ | Given | 03/22/20 | 4 mg | | | | | 17 6:48 | | | | | | AM PDT | | | | +-------+ +------+---+---+ | Given | 03/21/20 | 4 mg | | | | | 17 1:25 | | | | | | PM PDT | | | | +-------+ +------+---+---+ +---+---+ | | | +---+---+ + +-------+ +------+---+---+ | polyethylene glycol (MIRALAX) | Given | 03/19/20 | 34 g | | | | packet 34 g 34 g, oral, TWICE | | 17 8:15 | | | | | DAILY, First dose on Tue03/18/17 | | PM PDT | | | | | at 2200, Until Discontinued | | | | | | + +-------+ +------+---+---+ +-------+ +------+---+---+ | Given | 03/19/20 | 34 g | | | | | 17 9:11 | | | | | | AM PDT | | | | +-------+ +------+---+---+ | Given | 03/18/20 | 34 g | | | | | 17 11:11 | | | | | | PM PDT | | | | +-------+ +------+---+---+ +---+---+ | | | +---+---+ + +-------+ +------+---+---+ | polyethylene glycol (MIRALAX) | Given | 03/22/20 | 34 g | | | | packet 34 g 34 g, oral, THREE | | 17 8:48 | | | | | TIMES DAILY, First dose (after | | PM PDT | | | | | last modification) on 03/20/17 | | | | | | | at 0900, Until Discontinued | | | | | | + +-------+ +------+---+---+ +-------+ +------+---+---+ | Given | 03/21/20 | 34 g | | | | | 17 5:05 | | | | | | PM PDT | | | | +-------+ +------+---+---+ | Given | 03/21/20 | 34 g | | | | | 17 10:47 | | | | | | AM PDT | | | | +-------+ +------+---+---+ +---+---+ | | | +---+---+ + +-------+ +--------+---+---+ | potassium chloride SR (K-DUR) | Given | 03/19/20 | 40 mEq | | | | tablet 40 mEq 40 mEq, oral, | | 17 3:57 | | | | | ONCE, 1 dose, 03/19/17 at 1530 | | PM PDT | | | | + +-------+ +--------+---+---+ +---+---+ | | | +---+---+ + +-------+ +------+---+---+ | prochlorperazine (COMPAZINE) | Given | 03/19/20 | 5 mg | | | | injection 5 mg 5 mg, | | 17 9:38 | | | | | intravenous, EVERY 6 HOURS | | AM PDT | | | | | NEEDED, Starting 03/18/17 at | | | | | | | 2151, Until 03/19/17 at 1535, | | | | | | | nausea/vomiting, first line | | | | | | + +-------+ +------+---+---+ +-------+ +------+---+---+ | Given | 03/18/20 | 5 mg | | | | | 17 11:11 | | | | | | PM PDT | | | | +-------+ +------+---+---+ +---+---+ | | | +---+---+ + +-------+ +------+---+---+ | prochlorperazine (COMPAZINE) | Given | 03/23/20 | 5 mg | | | | tablet 5 mg 5 mg, oral, EVERY 6 | | 17 10:45 | | | | | HOURS NEEDED, Starting Sat | | AM PDT | | | | | 03/19/17 at 1536, Until Tue03/23/17 | | | | | | | at 2051, nausea/vomiting, first | | | | | | | line | | | | | | + +-------+ +------+---+---+ +-------+ +------+---+---+ | Given | 03/23/20 | 5 mg | | | | | 17 4:09 | | | | | | AM PDT | | | | +-------+ +------+---+---+ | Given | 03/22/20 | 5 mg | | | | | 17 4:11 | | | | | | PM PDT | | | | +-------+ +------+---+---+ +---+---+ | | | +---+---+ + +-------+ +-------+---+---+ | promethazine (PHENERGAN) tablet | Given | 03/23/20 | 25 mg | | | | 25 mg 25 mg, oral, EVERY 4 | | 17 7:29 | | | | | HOURS NEEDED, Starting Sat | | AM PDT | | | | | 03/19/17 at 1850, Until Tue03/23/17 | | | | | | | at 2051, nausea/vomiting, third | | | | | | | line | | | | | | + +-------+ +-------+---+---+ +-------+ +-------+---+---+ | Given | 03/22/20 | 25 mg | | | | | 17 7:37 | | | | | | PM PDT | | | | +-------+ +-------+---+---+ | Given | 03/22/20 | 25 mg | | | | | 17 11:25 | | | | | | AM PDT | | | | +-------+ +-------+---+---+ + +---+ | | | + +---+ | senna (SENOKOT) tablet 1 tablet | | | 1 tablet, oral, TWICE DAILY | | | NEEDED, Starting 03/19/17 at | | | 0506, Until 03/23/17 at 2051, | | | constipation | | + +---+ | | | + +---+ + +---------+ + +---+---+ | sodium chloride 0.9% IV | New Bag | 03/19/20 | 1,000 mL | | | | infusion 1,000 mL, intravenous, | | 17 3:58 | | | | | ONCE, 1 dose, 03/19/17 at 1615 | | PM PDT | | | | + +---------+ + +---+---+ +---+---+ | | | +---+---+ documented in this encounter
--- OUTSIDE RECORDS SUMMARY | ~2020-05-29 | XMS | Encounter Summary ---
Demographics + + + | Address | [address] | | | [place] [address] | + + + | Home Phone [...] Team Providers + +------+ + | Care Governor Assembler Hydraulic Name | Role | Phone | + [...] | | | | syndrome | [place] | [facility] | | | | | type [address] | [address] [place], | | | | | left lower | [place], [place] | [place] | | | | | extremity | [address] | [address] | | | | | Procedures | Phone: | Phone: | | | | | REQUEST TO | [phone] | [phone] | | | | | SURGERY | Fax: | Fax: | | | | | GRANITE COUNTERTOP INSTALLER | [phone] | [phone] | +--------+---------+ + + + + Encounter Details +--------+---------+ + + + | Date | Type | Department | Care Team | Description | +--------+---------+ + + + | 12/07/ | Office | [facility] | Eulogio | Complex regional | | 2019 | Visit | Pain Center at | MD Irene [address] | pain syndrome type 1 | | | | [facility] | [address] [place], | of left lower | | | | [address] | [place] [address] | extremity (Primary | | | | [facility] | [phone] | Dx); S/P insertion | | | | and Healing, | | of spinal cord | | | | Building , | | stimulator | | | | Floor [place], [place] | | | | | | [address] | | | | | | [phone] | | | +--------+---------+ + + + [...] + + + | Blood Pressure | 116/63 | 12/07/2018 8:18 AM | | | | | PST | | + + + + + | Pulse | 86 | 12/07/2018 8:18 AM | | | | | PST | | + + + + + | Temperature | 36.6 C (97.8 F) | 12/07/2018 8:18 AM | | | | | PST | | + + + + + | Respiratory Rate | 16 | 12/07/2018 8:18 AM | | | | | PST | | + + + + + | Oxygen Saturation | 100% | 12/07/2018 8:18 AM | | | | | PST | | + + + + + | Inhaled Oxygen | - | - | | | Concentration | | | | + + + + + | Weight | 80.3 kg (177 lb) | 12/07/2018 8:18 AM | | | | | PST | | + + + + + | Height | 165.1 cm (5' 5") | 12/07/2018 8:18 AM | | | | | PST | | + + + + + | Body Mass Index | 29.45 | 12/07/2018 8:18 AM | | | | | PST | | + + + + + documented in this encounter Progress Notes Irene Krishnan MD - 12/07/2018 9:10 AM PSTI have reviewed, edited and verified the ghada lozada scribed note of this patient's visit as recorded by Sonia Key. Electronically lucinda d by Irene Krishnan MD at 12/07/2018 9:50 AM PSTEstefany March MA - 12/07/2018 9:10 AM PSTCMA History: 1. Has your pain [...] Do you require any medication refills today? YES ROS:. 1. BONES, JOINTS AND MUSCLES muscle pain, stiffness and swelling 2. GASTROINTESTINAL SYSTEM negative 3. GENITOURINARY SYSTEM negative 4. NERVOUS SYSTEM negative 5. PSYCHIATRIC HISTORY sleep disturbance and concentration Irene Lujan MD - 12/07/2018 9:10 AM PST [facility] Return Visit Date: 12/07/2018 Chief Complaint Patient presents with Back pain Pain in left leg History of Present Illness: Tracie Farah is a 28 year old female, whose last appoi ntment at the [facility] [place] was December 05, 2018, for a procedure with Alex white MD, PhD: PROCEDURE: Dorsal root ganglion stimulator implant Today, she complains of constant pain located at the incision sites. She is unable to tell whether or not the DRG has been helpful for her foot pain yet as her post-operative pain is still very severe. She is presently taking Oxycodone 10 mg q 6 hours for her pain and finds that she needs this dose in order to stay ahead of her pain. She denies any adverse effects from the medication. The patient denies any red flag symptoms including bowel or bladder sym ptoms, fever, chills, saddle anesthesia, profound motor loss, and/or other related medical h istory. Her pain is made worse by moving and touching it. Her pain is improved by Oxycodone 10 mg. This condition has worsened since Ms. Farah's last visit. She does not have new pain comp laints on this visit. Ms. Farah reports that there have been no changes in her 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 MEDICAL DEVICE SALES Brief Pain Inventory: (ten= worst possible pain or complete interference) Right Now: 9 Least in 24 hours: 6 Worst in 24 hours: 9 Average: 7 % Relief (med/treat): 30 General Activity: 10 Mood: 7 Walking Ability: 8 Normal Work: 10 Relations with Others: 6 Enjoyment of Life: 8 Sexual Activity: 0 Sleep: 8 Past Medical [...] Hemroidectomy Trial spinal cord stimulator leads 08/02/2012 [facility], Surgeon: Janak Riojas MD Cholecystectomy Appendectomy [...] History Social History Narrative Single. Goes to [employer] with a light load. Has been working at [employer], can' t work on [employer]. Has roommates. Allergies Allergen Reactions Morphine Anaphylaxis [...] eight hours as needed for severe pain. OXYCODONE 5 MG TABLET Take 1-2 tablets by mouth every six hours as needed for pain. Indicat ions: post procedure pain PANTOPRAZOLE 40 MG TABLET,DELAYED RELEASE Take 40 mg by mouth once daily. PEG 3350-ELECTROLYTES 236 GRAM-22.74 GRAM-6.74 GRAM-5.86 GRAM SOLUTION Take as directed by [facility]- 2 gallon bowel prep [...] Not applicable Bones, Joints, and Muscles: muscle pain, stiffness and swelling Gastrointestinal System: negative Genitourinary System: negative Nervous System: negative Psychiatric History: sleep disturbance and concentration Physical Examination: BP 116/63 | Pulse 86 | Temp 36.6 C (97.8 F) | RR 16 | Ht 1.651 m (5' 5") | Wt 80.3 kg ( 177 lb) | SpO2 100% | BMI 29.45 kg/(m^2) Physical Exam Constitutional: No distress. HENT: [...] dry. She is not diaphoretic. No erythema. Incision is clean and intact. Scant area of clear discharge over the flank wound. Ecchymosi s over both wounds. Psychiatric: Affect normal. Vitals reviewed. Patient Active [...] and summary of old medical records (source: [employer]), as summarized in the body of the note. Impression: Ms. Tracie Farah is a 28y.o. female with a history of Complex Regional Pain Synd artem of the lower extremity as well as abdominal pain associated with severe, cyclical nause a and vomiting. She was previously evaluated by an orthopedic surgeon who determined that gonzales rgical intervention was not indicated for removal of her left ankle hardware due to the deve lopment of scar tissue and rotation of the originally placed staple. As she is unable to pur maggie surgical interventions for her pain, we proceeded with a DRG stimulator implantation. She returns today s/p dorsal root ganglion stimulator implant with Alex Sanchez MD, PhD (12/05/2018) presenting today for her 2-day post-implantation follow-up with myself. Her flan k incision does have some scant clear discharge and both incision have surround ecchymosis. Otherwise, the patient denies any adverse effects though she has not noted benefit from the device yet. She is requesting a refill today for Oxycodone for her post-procedure pain. She has 17 pill s left of her Oxycodone 5 mg that she brought with her today. I discussed this with Alex longoria MD, PhD who agreed for a prescription refill of Oxycodone 10 mg PO q 8 PRN Disp# 30 Refill# 0. I provided the patient with a paper prescription. She will follow up on December [address] Sims. Recommendation/Plan: - Prescription provided for Oxycodone 10 mg PO q 8 PRN Disp# 30 Refill# 0 - Patient will follow up on December [address] Bethany Cortez, Sonia Key, assisted with the templating of this note for Irene Krishnan MD but was not physically present for the encounter. Irene Krishnan MD [facility] [place] [id number] [facility], 4th Floor Mail Code: [address] [id number] documented in thi s encounter Plan of Treatment Not on filedocumented as of this encounter Visit Diagnoses + + | Diagnosis | + + | Complex regional pain syndrome type 1 of left lower extremity - Primary | + + | S/P insertion of spinal cord stimulator | + + documented in this encounter
--- OUTSIDE RECORDS SUMMARY | ~2020-05-29 | XMS | Encounter Summary ---
Demographics + + + | Address | [address] | | | [place] [address] | + + + | Home Phone [...] Team Providers + +------+ + | Care Wellness Educator Name | Role | Phone | [...] + + | 10/30/ | Refill | [facility] | Alex Sanchez, | Refill Request | | 2018 | | Pain Center at | ,PhD [address] [facility] | | | | | [facility] | [address] | | | | | [address] | [place], [place] | | | | | [facility] | [address] | | | | | and [place]ina, | [phone] | | | | | [facility] | | | | | | Floor [place], [place] | | | | | | [address] | | | | | | [phone] | | | +--------+--------+ + + + [...]
--- OUTSIDE RECORDS SUMMARY | ~2020-05-29 | XMS | Encounter Summary ---
Demographics + + + | Address | [address] | | | [place] [address] | + + + | Home Phone [...] Team Providers + +------+ + | Care Spare Hand Carding Name | Role | Phone | + [...] | | | | | syndrome | [facility] | [facility] | | | | | type [address] of | [address] | Rd [place], | | | | | left lower | [facility], [place] | [place] | | | | | extremity | [address] | [address] | | | | | Muscle pain | Phone: | Phone: | | | | | Procedures | [phone] | [phone] | | | | | REQUEST TO | Fax: | Fax: | | | | | SURGERY | [phone] | [phone] | | | | | HOG ROOM SUPERVISOR | | | +--------+---------+ + + + [...] | syndrome | [place] | [place] [place] | | | | | type 1 of | Rd | Rd [place], | | | | | left lower | [place], [place] | [place] | | | | | extremity | [address] | [address] | | | | | Muscle pain | Phone: | Phone: | | | | | Procedures | [phone] | [phone] | | | | | REQUEST TO | Fax: | Fax: | | | | | SURGERY | [phone] | [phone] | | | | | HOG ROOM SUPERVISOR | | | | | | | RI INJ,ANES | | | | | | | AGENT,SCIATI | | | | | | | C | | | | | | | NERVE,SINGLE | | | | | | | RI INJECT | | | | | | | NERV | | | | | | | BLCK,OTHR | | | | | | | PERIPH NERV | | | | | | | RI SONO | | | | | | | GUIDE FOR | | | | | | | NEEDLE | | | | | | | PLACEMENT | | | | | | | RI MOD | | | | | | | SEDATION | | | | | | | >=5YRS SAME | | | | | | | MD/QUAL | | | | | | | PROV; INIT | | | | | | | 15 MIN RI | | | | | | [...] | | | | | Procedures | [facility] [place] | [facility], | | | | | CONSULT TO | [address] | [place] | | | | | PAIN | | [address] | | | | | MANAGEMENT | | Phone: | | | | | | | [phone] | | | | | | | Fax: | | | | | | | [phone] | +--------+--------+ + + + + Encounter Details +--------+---------+ + + + | Date | Type | Department | Care Team | Description | +--------+---------+ + + + | 12/14/ | Office | [facility] | Alex Sanchez, | Complex regional | | 2018 | Visit | Pain Center at | ,PhD [address] | pain syndrome type 1 | | | | [facility] | [facility] [address] | of left lower | | | | [address] | [place], [place] | extremity (Primary | | | | [place] [facility] | [address] | Dx); Muscle pain; | | | | and Healing, | [phone] | Pain of upper | | | | | | abdomen | | | | Floor [place], [place] | | | | | | [address] | | | | | | [phone] | | | +--------+---------+ + + + [...] the time to see us in the [facility]. It was great to s [...] make sure this is scheduled with the Graphic Technician. PRE-PROCEDURE INSTRUCTIONS 1. Please bring a tier truck driver with you as we may give you medications that impair your ability to drive. This is necessary even if you do not receive sedation. You may take a taxi or [employer] if you are accompanied by a responsible [...] or blood thinning medications (other than aspirin), [facility] doctor who is doing your procedure will communicate with the provider who is prescribing y our anticoagulant therapy. If you do not have clear instructions on what to do with your an ticoagulant by 2 weeks before your procedure, please contact [facility] to cl arify your instructions. The phone number for questions or concerns is [phone]. documented in this encounter Progress Notes Charline [...] M D,PhD - 12/14/2017 10:25 AM PST [facility] Return Visit Date: 12/14/2017 Chief Complaint Patient presents with Back pain Low back pain Abdominal pain Pain in right leg Pain in left leg History of Present Illness: Tracie Farah is a 27 year old female, whose last appoi ntment at the [facility] [place] was October 11, 2017, for a clinic [...] review treatment plan. * Follow up with [facility] as needed. Today, she complains [...] was treated by Christie Madrid MD in [place], [place] for three years before she abruptly ended her practice due to illness. This left her without a doctor to help her manage her chronic pain. In addition to her CRPS symptoms (diagnosed 2010), she has some sto mach issues that she has been working with Ilene Childs DNP, JUSTICE COURT JUDGE-C. She has a scar on her stomach that is really sensitive to light touch and is unsure if the stomach issues are con nected with the CRPS affected leg. She states that the two pains present differently. She chwodhury s had bouts of becoming ill in [...] a lot of great improvements while in [place], [place]. Weaning her off of the narcotic [...] her medical history that she spent in [place], [place] where she part ook in a [...] Spinal cord stimulator trial - Nerve blocks GREEN PIPEFITTER Brief Pain Inventory: (ten= worst possible pain [...] History Social History Narrative Single. Goes to [employer] with a light load. Has been working at [employer], can' t work on crPythian. Has roommates. Allergies Allergen Reactions Morphine Anaphylaxis [...] by physician. Concentration is 150mg/mL. Compounded by [facility] ) LAMOTRIGINE 200 MG TABLET Take [...] GRAM-5.86 GRAM SOLUTION Take as directed by [facility]- 2 gallon bowel prep POLYETHYLENE GLYCOL [...] and summary of old medical records (source: [employer]), as summarized in the body of the [...] to her by Christie Madrid MD in [place], [place]. As she has since left the [...] I jacqueline poon spoken with our medical data entry clerk, Evelia Gonzalez MD who agrees that as [...] peripheral nerve stimulation. As she lives in [place], [place] with her family (3.5 hours away), [...] by Sonia Key. Alex Sanchez MD PhD Geriatric Personal Care Aide Anesthesiology and Pain Management [facility] Post visit: I reviewed the UDS, and [...] | + + + + + | [facility] | [address] | [place] [address] | | | SERVICES, CORE | GUILLERMO [...]
--- OUTSIDE RECORDS SUMMARY | ~2020-05-29 | XMS | Encounter Summary ---
Demographics + + + | Address | [address] | | | [place] [address] | + + + | Home Phone [...] Team Providers + +------+ + | Care Wharf Labourer Name | Role | Phone | + [...] Pain | | 2016 | | Center [place] [address] [address] | | | | | | [address] [facility] | | | | | | for Health and | | | | | | Healing, [address] | | | | | | [place], [place] | | | | | | [address] | | | | | | [phone] | | | +--------+ + + + [...]
--- OUTSIDE RECORDS SUMMARY | ~2020-05-29 | XMS | Encounter Summary ---
Demographics + + + | Address | [address] | | | [place] [address] | + + + | Home Phone [...] Team Providers + +------+ + | Care Information Management Manager Name | Role | Phone | + +------+ + | Justo Vazquez MD | PCP | | + +------+ + Encounter Details +--------+ + + + + | Date | Type | Department | Care Team | Description | +--------+ + + + + | 01/11/ | Procedure | Diagnostic Imaging | | | | 2016 | Pass | Services at [facility] | | | | | | [address] | | | | | | [place] | | | | | | [facility] | | | | | | [place], [place] | | | | | | [address] | | | | | | [phone] | | | +--------+ + + + [...]
--- OUTSIDE RECORDS SUMMARY | ~2020-05-29 | XMS | Encounter Summary ---
Demographics + + + | Address | [address] | | | [place] [address] | + + + | Home Phone [...] Team Providers + +------+ + | Care Loan Clerk Name | Role | Phone | + +------+ + | Justo Vazquez MD | PCP | | + +------+ + Reason for Referral Consultation (Routine) +--------+--------+ + + + + | Status | Reason | Specialty | Diagnoses / | Referred By | Referred To | | | | | Procedures | Contact | Contact | +--------+--------+ + + + + | Denied | | Orthopedics | Diagnoses | Sdrulla, | [place], | | | | | Intractable | Alex Alba, | MD González | | | | | cyclical | ,PhD [address] | | | | | vomiting | [address] | [address] | | | | | with nausea | [address] | [address] [place], | | | | | Complex | Rd | [place] | | | | | regional | [place], [place] | [address] | | | | | pain | [address] | Phone: | | | | | syndrome | Phone: | [phone] | | | | | type 1 of | [phone] | Fax: | | | | | left lower | Fax: | [phone] | | | | | extremity | [phone] | | | | | | Procedures | | | | | | | CONSULT TO | | | | | | | ORTHOPEDICS | | | | | | | AND | | | | | | | REHABILITATI [...] | | | | pain, | [address] | ,PhD [address] | | | | | unspecified | [facility] | [address] | | | | | location | Rd | [facility] | | | | | Procedures | [place], [place] | Rd [place], | | | | | CONSULT TO | [address] | [place] | | | | | PAIN | | [address] | | | | | MANAGEMENT | | Phone: | | | | | | | [phone] | | | | | | | Fax: | | | | | | | [phone] | +--------+--------+ + + + + Encounter Details +--------+---------+ + + + | Date | Type | Department | Care Team | Description | +--------+---------+ + + + | 04/19/ | Office | [facility] [place] | Alex Sanchez, | Intractable cyclical | | 2018 | Visit | Pain Center at | ,PhD [address] | vomiting with | | | | [facility] | [address] | nausea (Primary Dx); | | | | [address] | [place], [place] | Complex regional | | | | [place] [facility] | [address] | pain syndrome type 1 | | | | and Healing, | [phone] | of left lower | | | | Building | | extremity | | | | Floor [facility] [place] | | | | | | [address] | | | | | | [phone] | | | +--------+---------+ + + + [...] + + + | Blood Pressure | 127/76 | 04/19/2018 12:44 PM | | | | | PDT | | + + + + + | Pulse | 67 | 04/19/2018 12:44 PM | | | | | PDT | | + + + + + | Temperature | - | - | | + + + + + | Respiratory Rate | 14 | 04/19/2018 12:44 PM | | | | | PDT | | + + + + + | Oxygen Saturation | 98% | 04/19/2018 12:44 PM | | | | | PDT | | + + + + + | Inhaled Oxygen | - | - | | | Concentration | | | | + + + + + | Weight | 73.9 kg (163 lb) | 04/19/2018 12:44 PM | | | | | PDT | | + + + + + | Height | 162.6 cm (5' 4") | 04/19/2018 12:44 PM | | | | | PDT | | + + + + + | Body Mass Index | 27.98 | 04/19/2018 12:44 PM | | | | | PDT | | + + + + + documented in this encounter Patient Instructions Patient Instructions Alex Sanchez MD,PhD - 04/19/2018 1:00 PM PDTI will look at your labs and ER visits, and contact the gastroenterologists regarding future steps. You will provide me with the number the orthopedic surgeon who did the procedure. Follow up as needed. P M PDT documented in this encounter Progress Notes Alex Sanchez MD,PhD - 04/19/2018 1:00 PM PDTFormatting of this note might be differe nt from the original. [facility] Return Visit Date: 04/20/2018 Chief Complaint Patient presents with Abdominal pain Back pain Pain in left leg History of Present Illness: Tracie Farah is a 27 year old female, whose last appoi ntment at the [facility] was 12/27/2017, for a procedure (popliteal nerve bloc k and abdominal scar neuroma injection). The popliteal nerve block - Provided transient benefit. Scar neuroma - improved skin sensitivity after the injection, although her deeper pain Today, she complains of constant pain located in the left leg and foot. Her pain is made wo rse by lying down, standing and walking. Her pain is improved by medications and brandon (ket amine makes the foot pain better).. This condition has remained unchanged since Ms. Farah 's last visit. She does not have new pain complaints on this visit. Ms. Farah reports th at there have been no changes in her history since the last appointment. Dr. Amanda did not believe that her left ankle will benefit from surgery to remove the pin. She was diagnosed with interstitial cystitis, had a bladder procedure. Abdominal pain with vomiting - Toradol IV works, but she has had difficulty getting these i n the ER. She goes to the ER a few times per year. She denies side effects from the ketamine (does not help for the abdominal pain). PAINBRIEF: [facility] Brief Pain Inventory: (ten= worst possible pain or complete interference): Right Now: 6 (04/19/18 1245) Least in 24 hours: 5 (04/19/18 1245) Worst in 24 hours: 8 (04/19/18 1245) Average: 6 (04/19/18 1245) % Relief (med/treat): 80 (04/19/18 1245) General Activity: 7 (04/19/18 1245) Mood: 7 (04/19/18 1245) Walking Ability: 7 (04/19/18 1245) Normal Work: 7 (04/19/18 1245) Relations with Others: 7 (04/19/18 1245) Enjoyment of Life: 6 (04/19/18 1245) Sexual Activity: 0 (04/19/18 1245) Sleep: 8 (04/19/18 1245) Past Medical History: Diagnosis Date Abdominal pain [...] Trial spinal cord stimulator leads 08/02/2012 [facility], Surgeon: Janak Riojas MD Cholecystectomy [...] History Social History Narrative Single. Goes to [employer] with a light load. Has been working at [employer], can' t work on crmohchiches. Has roommates. Allergies Allergen Reactions Morphine Anaphylaxis [...] by physician. Concentration is 150mg/mL. Compounded by [facility] ) KETOROLAC IM Inject into the [...] GRAM-5.86 GRAM SOLUTION Take as directed by [facility]- 2 gallon bowel prep POLYETHYLENE GLYCOL 3350 17 GRAM/DOSE ORAL POWDER Take 17 g by mouth once daily. PROMETHAZINE 12.5 MG TABLET Take 12.5 mg by mouth four times daily as needed for nausea/vom iting. SUCRALFATE 1 GRAM TABLET Take 1 g by mouth four times daily. NM Bone Scan 12/27/2017 IMPRESSION: Normal angiographic and capillary phases. Abnormally delayed appearance of the bones in t he distal portions of both legs. Focal abnormality in the distal left fibula associated with an orthopedic pin. I have discussed these findings personally with . This is not the typical appearance of complex regional pain syndrome. 1. BONES, JOINTS AND MUSCLES cramps , joint pain, stiffness and swelling 2. GASTROINTESTINAL SYSTEM nausea, constipation and abdominal pain 3. GENITOURINARY SYSTEM urinary hesitancy and urinary incontinence 4. NERVOUS SYSTEM numbness and weakness 5. PSYCHIATRIC HISTORY sleep disturbance, decreased energy, concentration , anxiety, fear of physical activity and social withdrawal Physical Examination: BP 127/76 | Pulse 67 | RR 14 | Ht 1.626 m (5' 4") | Wt 73.9 kg (163 lb) | SpO2 98% | BMI 27 .98 kg/(m^2) Physical Exam Left antalgic gait. Severe allodynia left foot. Temperature (wearing flip-flops): 27 deg C left foot, not registering left foot, cool to to uch. Cold allodynia to spray. Ankle and toe weakness on the left side (4/5). Patient Active Problem List Diagnosis CRPS (complex regional pain syndrome), lower limb Gait disturbance Muscle pain Adjustment reaction Pain in joint, lower leg Disturbance in sleep behavior Pain of upper abdomen 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 Irritable bowel syndrome with constipation Intractable cyclical vomiting with nausea Abdominal pain Abdominal scar neuroma Visit Diagnoses: G43.A1 Intractable cyclical vomiting with nausea G90.522 Complex regional pain syndrome type 1 of left lower extremity For today's evaluation, I have included my personal review of Ms. Farah's history and ph ysical examination. I also used the following components in my medical decision making: Impression: Ms. Tracie Farah is a 27 [...] secondary to her pain and non-NPO status. I performed a scar injection on 12/27 that improved her skin sensitivity, but had no impact on the deeper abdominal pain and nausea/vo miting. Ms. Farah has been managing her left foot pain for a few years with nasal ketamine spray that was originally being prescribed to her by Christie Madrid MD in [place], [place]. As she chowdhury s since left the practice, Ms. Farah no longer has a prescriber for this medication. At [facility], we typically do not provide our patients with prescriptions bu t as Ms. Farah has been dealing with this pain chronically since age 12, is appropriate i n using the ketamine spray, and is using the medication as directed, demonstrates benefits, and has no serious adverse effects I feel that it is reasonable to provide Ms. Farah with a prescription refill, and she has continued to use this medication appropriately. Urine to xicology from 12/14/2017 was negative. Ms. Farah has chronic abdominal pain of unclear etiology. [facility] and is greatly helped by Toradol, antiemetics and a dose of IV opioid. I will review r records and provide her with a letter summarizing what therapies work for her. Next step will be a trial of DRG stimulation if no further ortho interventions are consider ed. She is to continue physical therapy and psychological therapy. Recommendation/Plan: Follow up as needed Alex Sanchez MD,PhD [facility] 3 :41 PM PDTSmithCharline MA - 04/19/2018 1:00 PM PDTCMA History: 1. Has your [...] JOINTS AND MUSCLES cramps , joint pain, stiffness and swelling 2. GASTROINTESTINAL SYSTEM nausea, constipation and abdominal pain 3. GENITOURINARY SYSTEM urinary hesitancy and urinary incontinence 4. NERVOUS SYSTEM numbness and weakness 5. PSYCHIATRIC HISTORY sleep disturbance, decreased energy, concentration , anxiety, fear of physical activity and social withdrawal documented in this e ncounter Plan of Treatment Not on filedocumented as of this encounter Visit Diagnoses + + | Diagnosis | + + | Intractable cyclical vomiting with nausea - Primary | + + | Complex regional pain syndrome type 1 of left lower extremity | + + documented in this encounter
--- OUTSIDE RECORDS SUMMARY | ~2020-05-29 | XMS | Encounter Summary ---
Demographics + + + | Address | [address] | | | [place] [address] | + + + | Home Phone [...] Team Providers + +------+ + | Care Revenue Stamp Clerk Name | Role | Phone | + +------+ + | Allegra Gandhi | PCP | | + +------+ + Reason for Visit + + + | Reason | Comments | + + + | Return Patient | | + + + | Foot [...] | | | sympathetic | [place] [address]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 | FAMILY | [address] | | | | | of lower | MEDICINE P | [id number] | | | | | limb | [address] | [place], [place] | | | | | | [place], | [address] | | | | | | [place] [address] | Phone: | | | | | | Phone: | [phone] | | | | | | [phone] | Fax: | | | | | | Fax: | [phone] | | | | | | [phone] | | +--------+--------+ + + + + Encounter Details +--------+---------+ + + + | Date | Type | Department | Care Team | Description | +--------+---------+ + + + | 03/17/ | Office | [facility] | Dale Cantu, | CRPS (complex | | 2011 | Visit | Pain Center at | [address] | regional pain | | | | [place] | [address] [id number] | syndrome), lower | | | | [address] | [place], [place] | limb; Adjustment | | | | [place] [facility] | [address] | reaction; Muscle | | | | and Healing, | [phone] | pain; Gait | | | | [facility] | | disturbance | | | | Floor [place], [place] | | | | | | [address] | | | | | | [phone] | | | +--------+---------+ + + + [...] + + + | Blood Pressure | 150/60 | 03/17/2012 3:42 PM | | | | | PDT | | + + + + + | Pulse | 74 | 03/17/2012 3:42 PM | | | | | PDT | | + + + + + | Temperature | - | - | | + + + + + | Respiratory Rate | 16 | 03/17/2012 3:42 PM | | | | | PDT | | + + + + + | Oxygen Saturation | 99% | 03/17/2012 3:42 PM | | | | | PDT | | + + + + + | Inhaled Oxygen | - | - | | | Concentration | | | | + + + + + | Weight | 77.1 kg (170 lb) | 03/17/2012 3:42 PM | | | | | PDT | | + + + + + | Height | 165.1 cm (5' 5") | 03/17/2012 3:42 PM | | | | | PDT | | + + + + + | Body Mass Index | 28.29 | 03/17/2012 3:42 PM | | | | | PDT | | + + + + + documented in this encounter Patient Instructions Patient Instructions Dale Cantu MD - 03/17/2012 4:34 PM PDTFormatting of this note m ight be different from the original. For a pain flare: Use the ativan only on those days and use the hydrocodone/apap... Only use the ibuprofen and tylenol of those days when the pain is much worse. Stop popping it !!! Work on avoiding the stress that can make the pain flare worse. SLOW progress with the movements. I suggested the book, Managing Pain Before It Manages You, by Tayler Talavera M.D., Ph.D. This is an excellent self-help book with numerous appropriate suggestions for chronic hudson n patients Stick with the duloxetine for now. Try taking it earlier. Two of many future options: NORTRIPTYLINE. Start 25 mg at night, after 3-7 days increase to 50 mg at night. After an other 3-7 days increase to 75 mg each night. The target dose is 50 - 150 mg nightly. Analge mandeep onset can take weeks. It is prudent to obtain an EKG before starting this medication to rule out any conduction delay or rhythm disturbances. We discussed possible benefits and a dverse effects of this and provided her with written information about the medication. Memantine. This drug is an NMDA antagonist and has recent evidence to support its use in n europathic and other pain pain conditions. Starting dose is 5 mg at night, titrate to 5-10 mg twice a day, maximum dose of 30 mg/day. Nortriptyline for Pain: After Your Visit Your Care Instructions Your doctor prescribed nortriptyline to help relieve your pain. Although it is often used t o treat depression, it is also used for pain and to improve sleep. It has been found to be s afe and effective over many years of use, and it is not addictive. The right dose of this medicine is different for each person. It is important for you and y our doctor to find the dose that works best for you. This medicine may make you sleepy, so b e sure to take it at bedtime. Follow your doctor's instructions exactly. Follow-up care is a bocanegra part of your treatment and safety. Be sure to make and go to all ap pointments, and call your doctor if you are having problems. It s also a good idea to know your test results and keep a list of the medicines you take. How can you care for yourself at home? Start by taking the dose your doctor instructs at bedtime. Take this dose for the number of days that he or she tells you to. If your pain is not relieved after this time period, aspen villatoro your doctor's directions on how to continue and how to slowly increase the dose. Here are some points to remember about taking nortriptyline: You need to take nortriptyline every day for it to be effective. If you miss a dose, do not take a double dose to make up for it. Just take the next timoteo y dose as prescribed by your doctor. Once your pain is relieved, do not increase to the next dose. Continue the same dose. If you have side effects on a particular dose, take the prior lower dose, and call your doctor for further instructions. Nortriptyline can cause dry mouth. To relieve this, try sugar-free gum, ice, or sugar-fr ee sweets. If a dry mouth is still a problem, tell your doctor. It may take several weeks after you start nortriptyline for the medicine to work. Do not stop taking nortriptyline suddenly. Do not drink alcohol. It may increase drowsiness and dizziness. Remember to stand up slowly to prevent dizziness and falls after taking the medicine. When should you call for help? Call your doctor now or seek immediate medical care if: Your heart rate becomes irregular. You can feel your heart flutter in your chest or skip heartbeats. You have problems urinating. You are dizzy or lightheaded. You are very sleepy. You do not understand how to take your medicine. Watch closely for changes in your health, and be sure to contact your doctor if: You do not get better as expected. Where can you learn more? To learn more about "Nortriptyline for Pain: After Your Visit", log into your [employer] nt at [email or web address]. You can enter G828 in the [employer]" search box. Not on [employer]? Review the MyChart section of your After Visit Summary for directions on liz rea to sign up. [id number] [employer]. Care instructions adapted under license by [facility]. This care instruction is for use with your licensed healthcar e professional. If you have questions about a medical condition or this instruction, always ask your healthcare professional. [employer] disclaims any warranty or liabili ty for your use of this information. Content Version: [id number]; Last Revised: April 29, 2011 Nortriptyline for Pain: After Your Visit Your Care Instructions Your doctor prescribed nortriptyline to help relieve your pain. Although it is often used t o treat depression, it is also used for pain and to improve sleep. It has been found to be s afe and effective over many years of use, and it is not addictive. The right dose of this medicine is different for each person. It is important for you and y our doctor to find the dose that works best for you. This medicine may make you sleepy, so b e sure to take it at bedtime. Follow your doctor's instructions exactly. Follow-up care is a bocanegra part of your treatment and safety. Be sure to make and go to all ap pointments, and call your doctor if you are having problems. It s also a good idea to know your test results and keep a list of the medicines you take. How can you care for yourself at home? Start by taking the dose your doctor instructs at bedtime. Take this dose for the number of days that he or she tells you to. If your pain is not relieved after this time period, aspen villatoro your doctor's directions on how to continue and how to slowly increase the dose. Here are some points to remember about taking nortriptyline: You need to take nortriptyline every day for it to be effective. If you miss a dose, do not take a double dose to make up for it. Just take the next timoteo y dose as prescribed by your doctor. Once your pain is relieved, do not increase to the next dose. Continue the same dose. If you have side effects on a particular dose, take the prior lower dose, and call your doctor for further instructions. Nortriptyline can cause dry mouth. To relieve this, try sugar-free gum, ice, or sugar-fr ee sweets. If a dry mouth is still a problem, tell your doctor. It may take several weeks after you start nortriptyline for the medicine to work. Do not stop taking nortriptyline suddenly. Do not drink alcohol. It may increase drowsiness and dizziness. Remember to stand up slowly to prevent dizziness and falls after taking the medicine. When should you call for help? Call your doctor now or seek immediate medical care if: Your heart rate becomes irregular. You can feel your heart flutter in your chest or skip heartbeats. You have problems urinating. You are dizzy or lightheaded. You are very sleepy. You do not understand how to take your medicine. Watch closely for changes in your health, and be sure to contact your doctor if: You do not get better as expected. Where can you learn more? To learn more about "Nortriptyline for Pain: After Your Visit", log into your [employer] nt at [email or web address]. You can enter G828 in the [employer]" search box. Not on [employer]? Review the Adapthart section of your After Visit Summary for directions on ho w to sign up. [id number] [employer]. Care instructions adapted under license by [facility]. This care instruction is for use with your licensed healthcar e professional. If you have questions about a medical condition or this instruction, always ask your healthcare professional. [employer] disclaims any warranty or liabili ty for your use of this information. Content Version: [id number]; Last Revised: April 29, 2011 documented in this encounter Progress Notes Dale Cantu MD - 03/17/2012 4:21 PM PDTI saw and evaluated the patient with Resident : Marquis Elaine MD, who conducted the initial history. I reviewed the history in detail a nd edited his note. I was present for the examination and formulation portions of the encou nter. I agree with the findings and the plan of care as documented in our notes. DALE CANTU MD Power Barker Operator, [facility] Chemical Detection Expert, Pain Medicine Professor, Anesthesiology & Perioperative Medicine NAMollMarquis manriquez MD - 03/17/2012 3:42 PM PDT [facility] Return Visit with Dr. Dale Cantu 03/17/2012 Tracie Farah; ; : 1990 Chief Complaint Patient presents with Return Patient Foot pain History of Present Illness: Ms. Farah is a 21 yo F who was diagnosed with CPRS following a trampoline injury 04/12/20 with distal fibula fracture involving the growth plate. She was last seen by Dr. Cantu on 03/01/2012 for a Left L3 Lumbar sympathetic block for left lower leg CPRS. Subsequent to the injection of local anesthetic, Ms. Farah did not have improvement of her pain despit e the vascular engorgement and palpable warmth of her left foot in the recovery area and an increase in temperature of 6 degrees celsius. No evidence of motor or sensory block. She is here today for a follow up visit from her lumbar sympathetic block. She forgot to s end/bring in her pain diary from the procedure. She did notice significant swelling (about 12 hours in duration) and increased temperature for about 3 days in her left foot. Unfortun ately she did not notice any change in her pain from this procedure. Her pain remains at th e same level and intensity (7-10/10) as it did prior to her visit last month except that she feels like it is now higher up her leg in to her left thigh. Due to a recent flair in her pain, she had to visit the ER for pain control where she received ketorolac and hydromorphon e IM injections. As recommended, she increased her dose of Duloxetine to 60 mg Qday, but she notes that it m akes her exhausted such that she has been missing classes and sleeping in very late. She chowdhury d originally been on 30 mg, and increased to 60 mg over 4 weeks ago with no noticeable impro vement in her pain. She continues to take 6-8 [place] per day and 600 mg of ibuprofen every 4 hours. She had her first consultation with Goldie Feldman, and she is using the techniques she has l earned to help her cope with her pain. She feels like she is able to be more active, but ta kes a long time to recover due to the increased abilities. She has also had her first consu ltation with Guillermo Sanon She has [facility] CPR[facility] with the following problem l ist: Patient Active Problem List Diagnoses Date Noted Pain in joint, lower leg 02/29/2012 Sleep disturbance, unspecified 02/29/2012 CRPS (complex regional pain syndrome), lower limb 02/14/2012 Overview Note: Left, injury 2001, multiple surgical procedures Gait disturbance 02/14/2012 Muscle pain 02/14/2012 Overview Note: Diffuse with fibromyalgia points positive Adjustment reaction 02/14/2012 Ms. Farah completed the Brief Pain Inventory and a pain drawing which I reviewed. [facility] Brief Pain Inventory: (ten= worst possible pain or complete interference) Right Now: 7 (03/17/12 1554) Least in 24 hours: 8 (03/17/12 1554) Worst in 24 hours: 9 (03/17/12 1554) Average: 8 (03/17/12 1554) % Relief (med/treat): 10 (03/17/12 1554) General Activity: 10 (03/17/12 1554) Mood: 6 (03/17/12 1554) Walking Ability: 10 (03/17/12 1554) Normal Work: 10 (03/17/12 1554) Relations with Others: 5 (03/17/12 1554) Enjoyment of Life: 8 (03/17/12 1554) Sexual Activity: 0 (03/17/12 1554) Sleep: 7 (03/17/12 1554) She reports no other change in past [...] on file Alcohol Use: No She has had diagnostics and Procedures (lumbar sympathetic block) Current Outpatient Prescriptions Medication Sig DULoxetine (CYMBALTA) 30 mg Oral Capsule, Delayed Release(E.C.) Take 60 mg by mouth onc e daily. HYDROcodone-acetaminophen (NORCO) 10-325 mg Oral Tablet Take 2 Tabs by mouth every four hours as needed. Not to exceed 10 tablets per any 24 hour period. (Not to exceed 3250 mg of acetaminophen from all products per 24 hour period.) levonorgestrel (MIRENA) 20 mcg/24 hr Intrauterine IUD 1 Each by Intrauterine route once . May be removed and replaced with a new unit at anytime during menstrual cycle; do not leav e any one system in place for > 5 years. LORazepam 1 mg Oral Tablet Take 1-2 mg by mouth every four hours as needed. promethazine 25 mg Oral Tablet Take 25 mg by mouth four times daily as needed. Allergies Allergen Reactions Morphine Anaphylaxis Ms. Farah reports side effects which include: fatigue. The Review of Systems obtained by the [facility] was reviewed. Additional Review of Systems: Bones, Joints, and Muscles: joint pain, muscle pain, swelling as per history Gastrointestinal System: negative Genitourinary System: negative If yes, plan: Urinary Incontinence Present: no Nervous System: per history Psychiatric History: depressed mood, decreased interest in previously enjoyable activities, decreased energy, anxiety and social withdrawal PE: BP 150/60 | Pulse 74 | RR 16 | Ht 165.1 cm (5' 5") | Wt 77.111 kg (170 lb) | SpO2 99% | BMI 28.29 kg/(m^2) Appears healthy. Alert; in no acute distress. Pleasant. Oriented , interactive and friendly. Ambulates with restrictions. Left foot bare without shoe, guarding. IMAGING: NM BONE IMG 3 PHASE: PARTIAL BODY [...] the distal fibula is abnormal despite this. Attending Radiologists: Marquis Mcdowell M.D. Assessment: 355.71B CRPS (complex regional pain syndrome), lower limb 309.9CV Adjustment reaction 729.1C Muscle pain 781.2Q Gait disturbance Ms. Tracie Farah is a 21 yo female who was first seen here on 02/14/2012 for CPRS of her le ft foot secondary to an accident in 2001. She had previously undergone two lumbar sympathet ic blocks prior to our consultation, and a third left L3 sympathetic block was conducted on 03/01/2012 with noticeable temperature changes and swelling (different from previous sympathe tic blocks). Unfortunately she did not notice any change in her pain level and therefore jayden velez does not have a sympathetic component to her pain and there would be no benefit from re peating that procedure in the future.. As recommended previously, she titrated up her dose of duloxetine from 30 mg to 60 mg a day, but with no improvement in her level of pain (and w ith a side effect of increased fatigue). Additionally, she had her first consultation with Dr. Goldie Feldman, a visit which she spoke highly of and states she thinks the techniques are helpful in assisting her in coping with her chronic pain. She has noted the relationship b etween being upset or stressed and more pain. Today we discussed the next steps for the treatment and management of her CPRS. We stresse d the importance of continuing to work with Dr. Feldman as management and control of her res ponse to pain is going to be very important. Ms. Farah seems to have good insight, and s he is able to verbalize the steps she needs to take both with physical therapy and pain psyc pablo to improve her day to day function, but she appears to need further encouragement to put these techniques to use. Additionally we stressed the importance of continuing to work with Guillermo Sanon to increase her function and facilitate continued mobilization and use of h er lower extremity. She remains relatively reliant on her crutch, and the three-phase bone scan suggests negative changes of decreased weight bearing. There are multiple other medications we can consider for her in the future, including nortr iptyline and Memantine, although today we will not make any changes Plan: 1. Continue working with Dr. Goldie Feldman in pain psychology and Guillermo Sanon with physical therapy 2. The book Managing Pain Before It Manages You, by Tayler Talavera M.D., Ph.D. was south mmended to the patient 3. Work on avoiding the stress that can make the pain flares worse, recognizing it when it happens, actively use the techniques Dr. Feldman is teaching her. 4. Avoid use of lorazepam, hydrocodone/APAP, and ibuprofen except on those days when she chowdhury s a pain flare. Use these medications in combination with the strategies she is learning fr om Dr. Feldman to help her cope with the acute pain flares 5. Continue working towards increased movement of the foot and less reliance on crutches 6. Consider taking duloxetine earlier in the evening to try to mitigate the fatigue 7. Consider nortriptyline or Memantine in the future 8. Follow-up in 1 month. MARQUIS ELAINE MD [facility] Charline Choe MA - 03/17/2012 3:42 PM PDTA History: PMH/PSH/SH/FH review 1. Has your pain changed from your last visit? increased 2. Do your medications cause any side effects? Yes- sleepy 3. Have you had physical therapy appointments since your last visit? no 4. Have you had psychology appointments since your last visit? yes 5. Have you had any diagnostic studies since your last appointment? no 6. Do you require any medication refills today? 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 Bones, Joints, and Muscles: cramps , joint pain, muscle pain, stiffness and swelling 2. Gastrointestinal System: nausea 3. Genitourinary System: negative If yes, plan: 4. Urinary Incontinence Present: no 5. Nervous System: numbness and weakness 6. Psychiatric History: decreased energy, concentration and anxiety documented in this e ncounter Plan of Treatment Not on filedocumented as of this encounter Visit Diagnoses + + | Diagnosis | + + | CRPS (complex regional pain syndrome), lower limb Causalgia of lower limb | + + | Adjustment reaction Unspecified adjustment reaction | + + | Muscle pain Mylagia and myositis, unspecified | + + | Gait disturbance Abnormality of gait | + + documented in this encounter
--- OUTSIDE RECORDS SUMMARY | ~2020-05-29 | XMS | Encounter Summary ---
Demographics + + + | Address | [address] | | | [place] [address] | + + + | Home Phone [...] Team Providers + +------+ + | Care Scaffold Erector Name | Role | Phone | + +------+ + | Justo Vazquez MD | PCP | | + +------+ + Encounter Details +--------+--------+ + + + | Date | Type | Department | Care Team | Description | +--------+--------+ + + + | 07/04/ | Travel | | | | | [...]
--- OUTSIDE RECORDS SUMMARY | ~2020-05-29 | XMS | Encounter Summary ---
Demographics + + + | Address | [address] | | | [place] [address] | + + + | Home Phone [...] Team Providers + +------+ + | Care Sulky Driver Name | Role | Phone | + +------+ + | Justo Vazquez MD | PCP | | + +------+ + Encounter Details +--------+ + + + + | Date | Type | Department | Care Team | Description | +--------+ + + + + | 01/26/ | Document-Sc | Health Information | Unknown . | | | 2017 | anned | Services [id number] | | | | | | [address] | | | | | | Mailcode: [id number] | | | | | | [facility] | | | | | | [place], [place] | | | | | | [address] | | | | | | [phone] | | | +--------+ + + + [...]
--- OUTSIDE RECORDS SUMMARY | ~2020-05-29 | XMS | Encounter Summary ---
Demographics + + + | Address | [address] | | | [place] [address] | + + + | Home Phone | | + + + | Preferred Language | Unknown | + + + | Marital Status | Single | + + + | Orthodox Affiliation | 1073 | + + + | Race | Unknown | + + + | Ethnic Group | Unknown | + + + Author + + + | Author | [facility] | | | and [place] | + + + | Organization | [facility] | | | and [...] [place] | | | | | [address] | | + + + + + | Bryant Farah | ERICKA | Unknown | | + + + + + Care Team Providers + +------+ + | Care Vice President Of Business Development Name | Role | Phone | + +------+ + PCP | Unavailable | + +------+ + Encounter Details +--------+ + + + + | Date | Type | Department | Care Team | Description | +--------+ + + + + | 09/12/ | Hospital | [facility] | | | | 2008 | Encounter | [facility] | | [facility] | | [facility] [address] | | | | | | [place], [place] | | | | | | [address] | | | | | | [phone] | | | +--------+ + + + [...]
--- OUTSIDE RECORDS SUMMARY | ~2020-05-29 | XMS | Encounter Summary ---
Demographics + + + | Address | [address] | | | [place] [address] | + + + | Home Phone [...] Team Providers + +------+ + | Care Heavy Equipment Sales Manager Name | Role | Phone | [...] | unspecified | [facility] | [address] | | | | | location | Rd | [facility] | | | | | Procedures | [place], [place] | Rd [place], | | | | | CONSULT TO | [address] | [place] | | | | | PAIN | | [address] | | | | | MANAGEMENT | | Phone: | | | | | | | [phone] | | | | | | | Fax: | | | | | | | [phone] | +--------+--------+ + + + + Encounter Details +--------+---------+ + + + | Date | Type | Department | Care Team | Description | +--------+---------+ + + + | 05/08/ | Office | [facility] | Alex Sanchez, | Complex regional | | 2018 | Visit | Pain Center at | ,PhD [address] | pain syndrome type 1 | | | | [place] | [facility] [address] | of left lower | | | | [address] | [place], [place] | extremity (Primary | | | | Center for Health | [address] | Dx); Pain of upper | | | | and Healing, | [phone] | abdomen; Intractable | | | | | | cyclical vomiting | | | | Floor [place], [place] | | with nausea; | | | | [address] | | Disturbance in sleep | | | | [phone] | | behavior; Abdominal | | | [...] MD,P hD - 05/08/2018 10:30 AM PDT 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 Goes to [employer] with a light load. Has been working at [employer], can' t work on crGirl Meets Dress. Has roommates. Allergies Allergen Reactions Morphine Anaphylaxis [...] by physician. Concentration is 150mg/mL. Compounded by [employer] ) KETOROLAC IM Inject into the muscle [...] GRAM-5.86 GRAM SOLUTION Take as directed by [facility] Digestive Health- 2 gallon bowel prep POLYETHYLENE [...] and summary of old medical records (source: Torqeedo), as summarized in the body of the [...] by Sonia Key. Alex Sanchez MD PhD Campground Caretaker Anesthesiology and Pain Management [facility] documented in this encounter Plan of Treatment [...]
--- OUTSIDE RECORDS SUMMARY | ~2020-05-29 | XMS | Encounter Summary ---
Demographics + + + | Address | [address] | | | [place] [address] | + + + | Home Phone [...] Team Providers + +------+ + | Care Screenplay Writer Name | Role | Phone | [...] | | | | | Ave Mailcode: [facility] | [place], [place] | | | | | [facility] | [address] | | | | | Health and Healing, | [phone] | | | | | [place] [address] | | | | | | [place], [place] | | | | | | [address] | | | | | | [phone] | | | +--------+ + + + [...] Discharge Instructions Instructions Darlin Doyle RN - 12/14/2016[place] Care Instructions after Colonoscopy You may resume [...] on weekends and holidays call the Hospital Machine Engraver toll free [phone]- [phone] Ext. [phone] or and have the GI doctor pony rougher paged. The provider who performed your procedure [...] Farah is a 26 y.o. female MR# [id number] presents today for colonoscopy NPO since midnight [...]
--- OUTSIDE RECORDS SUMMARY | ~2020-05-29 | XMS | Encounter Summary ---
Demographics + + + | Address | [address] | | | [place] [address] | + + + | Home Phone [...] Providers + +------+ + | Care Sanitation Superintendent Name | Role | Phone | + +------+ + | Justo Vazquez MD | PCP | | + +------+ + Encounter Details +--------+ + + + + | Date | Type | Department | Care Team | Description | +--------+ + + + + | 01/31/ | Documentati | Vascular Access at | [place], | | | 2017 | on | [facility] [address] | Maru RN [address] | | | | | [address] | [address] | | | | | [facility] | [place], [place] | | | | | [place], [place] | [address] | | | | | [address] | | | | | | [phone] | | | +--------+ + + + [...]
--- OUTSIDE RECORDS SUMMARY | ~2020-05-29 | XMS | Encounter Summary ---
Demographics + + + | Address | [address] | | | [place] [address] | + + + | Home Phone [...] Team Providers + +------+ + | Care Oncology Coordinator Name | Role | Phone | [...] Medical Records | | 2017 | | [facility] [address] | MD Melissa | Review | | | | [address] [facility] | | | | | | for Health and | | | | | | [facility] [address] | | | | | | [place], [place] | | | | | | [address] | | | | | | [phone] | | | +--------+ + + + [...]
--- OUTSIDE RECORDS SUMMARY | ~2020-05-29 | XMS | Encounter Summary ---
Demographics + + + | Address | [address] | | | [place] [address] | + + + | Home Phone [...] Team Providers + +------+ + | Care Sap Payroll Consultant Name | Role | Phone | [...] | | Complex | Alex Alba, | [facility] [address] | | | | | regional | ,PhD [address] | Pavilion | | | | | pain | [address] | [address] | | | | | syndrome | [address] | [address], | | | | | type 1 of | Rd | Basement | | | | | left lower | [place], [place] | [place], [place] | | | | | extremity | [address] | [address] | | | | | Muscle pain | Phone: | Phone: | | | | | Procedures | [phone] | [phone] | | | | | [place] BONE | Fax: | Fax: | | | | | &/OR JOINT | [phone] | [phone] | | | | | IMAGING | [...] | | | | | | | [place] BONE | | | | | | | IMAGING, | | | | | | | LIMITED AREA | | | | | | | [place] BONE | | | | | | [...] | 2018 | Encounter | at [facility] [address] | ,PhD [address] [facility] | | | | | [address] | [address] | | | | | [address], | [place], [place] | | | | | [facility], | [address] | | | | | [place] [address] | [phone] | | | | | [phone] | | | +--------+ + + + [...]
--- OUTSIDE RECORDS SUMMARY | ~2020-05-29 | XMS | Encounter Summary ---
Demographics + + + | Address | [address] | | | [place] [address] | + + + | Home Phone [...] Team Providers + +------+ + | Care Inspecting And Testing Lead Hand Name | Role | Phone | + +------+ + | Justo Vazquez MD | PCP | | + +------+ + Encounter Details +--------+ + + + + | Date | Type | Department | Care Team | Description | +--------+ + + + + | 10/03/ | Telephone | [facility] | Ilene Bright, | | | 2017 | | Pain Center at | MARINE ELECTRICIAN APPRENTICE [address] | | | | | [facility] | [place], [place] | | | | | [address] | [address] | | | | | [place] for [facility] | [phone] | | | | | and Healing, | | | | | | | | | | | | Floor [place], [place] | | | | | | [address] | | | | | | [phone] | | | +--------+ + + + [...]
--- OUTSIDE RECORDS SUMMARY | ~2020-05-29 | XMS | Encounter Summary ---
Demographics + + + | Address | [address] | | | [place] [address] | + + + | Home Phone [...] Team Providers + +------+ + | Care Overlock Operator Name | Role | Phone | [...] + + | 03// | Telephone | [facility] | Alex Sanchez, | Medication (clarify | | 2018 | | Pain Center at | ,PhD [address] | sig on Ketamine) | | | | [facility] | [facility] | | | | | [address] | [place], [place] | | | | | [facility] | [address] | | | | | and Healing, | [phone] | | | | | Building | | | | | | Floor [place], [place] | | | | | | [address] | | | | | | [phone] | | | +--------+ + + + [...]
--- OUTSIDE RECORDS SUMMARY | ~2020-05-29 | XMS | Encounter Summary ---
Demographics + + + | Address | [address] | | | [place] [address] | + + + | Home Phone [...] Providers + +------+ + | Care Director Product Name | Role | Phone | + [...] | Procedures | [place] | [facility], | | | | | CONSULT TO | [address] | [place] | | | | | PAIN | | [address] | | | | | MANAGEMENT | | Phone: | | | | | | | [phone] | | | | | | | Fax: | | | | | | | [phone] | +--------+--------+ + + + + Encounter Details +--------+---------+ + + + | Date | Type | Department | Care Team | Description | +--------+---------+ + + + | 04/23/ | Office | [facility] at [facility] | Alex Sanchez, | Complex regional | | 2019 | Visit | [address] | ,PhD [address] [facility] | pain syndrome type 1 | | | | Center for [facility] | [facility] [address] | of left lower | | | | and Healing, | [place], [place] | extremity (Primary | | | | Building | [address] | Dx); Other chronic | | | | Floor [place], [place] | [phone] | pain ; S/P insertion | | | | [address] | | of spinal cord | | | | [phone] | | stimulator | +--------+---------+ + + [...] the time to see us in the [facility]. It was great to s ee you. Below is a summary of the discussion that we had today: - I will provide you with a prescription for oxycodone to use only for your monthly pain fl garo. - We reviewed and signed an opioid agreement today. - Please visit the lab on the 1st floor of [facility] to provide a urine sample for a [...] fox in our notes. Alex Sanchez MD,PhD [facility] signed by Alex Sanchez MD,PhD at [...] Aleta Lam MD - 1:00 PM PDT [facility] Center Return Visit Date: 04/23/2019 Chief Complaint Patient presents with Pain in left leg from the knee downl Back pain where battery pack is located History of Present Illness: Tracie Farah is a 28 year old female, whose last appoi ntment at the [facility] was December 22, 2018, for [...] leg pain due to the boone that [facility] has in place. She is looking into [...] - DRG Spinal cord stimulator trial with Brainjuicer system (09/25/2018) with 30-40% im provement of typical pain with significant improvement in mobility and function - Left popliteal/sciatic nerve injection AND abdominal scar trigger point injection ( 018) - Spinal cord stimulator trial with Brainjuicer system by Janak Riojas MD (08/02/2012) - Left L3 lumbar sympathetic block by Janak Riojas MD (03/01/2012) Opioid Risk Tool (ORT) 04/23/2019 [facility] Brief Pain Inventory: (ten= worst [...] Hemroidectomy Trial spinal cord stimulator leads 08/02/2012 [employer], Surgeon: Janak Riojas MD Cholecystectomy Appendectomy Other [...] History Social History Narrative Single. Goes to [employer] with a light load. Has been working at [employer], can' t work on [email or web address]. Has roommates. Allergies Allergen Reactions Morphine Anaphylaxis [...] GRAM-5.86 GRAM SOLUTION Take as directed by [facility] Digestive Health- 2 gallon bowel prep [...] with nausea Abdominal pain Abdominal scar neuroma [facility] CLINICAL PROTOCOL PATIENT (CLNPRO) - Implanted [...] and summary of old medical records (source: GetFeedback), as summarized in the body of the [...] We performed DRG SCS trial with the Keldeal System on 09/25/2018 which provided her with [...] ago. She has not spoken with the Kel[employer] representatives about this. I encouraged her to [...] Key. Aleta Rebollar MD [facility] 15TH FLOOR [address] [facility] Mail Code: Ch15p [place] [id number] do cumented in this encounter Plan of [...] + + + + + | [facility] | [address] | [place] [address] | | | SERVICES, CORE | GUILLERMO [...]
--- OUTSIDE RECORDS SUMMARY | ~2020-05-29 | XMS | Encounter Summary ---
Demographics + + + | Address | [address] | | | [place] [address] | + + + | Home Phone [...] Team Providers + +------+ + | Care Chopper Feeder Name | Role | Phone | + +------+ + | Justo Vazquez MD | PCP | | + +------+ + Encounter Details +--------+ + + + + | Date | Type | Department | Care Team | Description | +--------+ + + + + | 06/12/ | Hospital | Radiology/Imaging | Alex Sanchez, | | | 2018 | Encounter | Lab at [facility] [address] | ,PhD [address] [facility] | | | | | [facility] for | [facility] | | | | | Health and [facility], | [place], [place] | | | | | [address] [address] [facility] | [address] | | | | | Floor [place], [place] | [phone] | | | | | [address] | | | | | | [phone] | | | +--------+ + + + [...]
--- OUTSIDE RECORDS SUMMARY | ~2020-05-29 | XMS | Encounter Summary ---
Demographics + + + | Address | [address] | | | [place] [address] | + + + | Home Phone [...] Providers + +------+ + | Care Qa Specialist Name | Role | Phone | [...] | on | Center at [facility] [address] | [address] | | | | | [address] [employer] | [facility] [place] | | | | | for Health and | [address] | | | | | Healing, Building 2 | [phone] | | | | | [place], [place] | | | | | | [address] | | | | | | [phone] | | | +--------+ + + + [...]
--- OUTSIDE RECORDS SUMMARY | ~2020-05-29 | XMS | Encounter Summary ---
Demographics + + + | Address | [address] | | | [place] [address] | + + + | Home Phone [...] Team Providers + +------+ + | Care Foil Operator Name | Role | Phone | [...] + + | 10/21/ | Hospital | [place] [address] | [place], | | | 2015 - | Encounter | [facility] | MD Tala [address] | | | | | [address] [place] [address] | [facility] | | | 10/25/ | | [place], [place] | [place], [place] | | | 2014 | | [address] | [address] | | | | | [phone] | [phone] | | | | | | | | | | | | Clifton Childers | | | | | | MD Nhan [address] [facility] | | | | | | [facility] | | | | | | [place], [place] | | | | | | [address] | | | | | | [phone] | | | | | | | [...] child. Followed by Dr. Katy berrios at [facility] in [place], [place]. Has been on a stable regimen for [...] with our plans. Clifton Childers MD Poker Room Manager Division of Hospital Medicine Teaching Attending [...] child. Followed by Dr. Katy berrios at [facility] in [place], [place], has been on a stable regimen [...] and plan. Lolita Ma MD, MPH Pager #[phone] PGY-1, Anesthesiology [facility] Associated attestation - Clifton Childers MD [...] with our plans. Clifton Childers MD Poker Room Manager Division of Hospital Medicine Teaching Attending [...] child. Followed by Dr. Katy berrios at [facility] in [place], [place], has been on a stable regimen for [...] and plan. Lolita Ma MD, MPH Pager #[phone] PGY-1, Anesthesiology [facility] Associated attestation - Clifton Childers MD [...] history, primarily secondary [facility] of complicated ankle fracture age [...] would like the patient to establish in detention counseling and/or CBT as an outpatient if willing. Patient/Family Goals & Expectations: Above problems discussed with the patient who understands and is agreeable with our plans. Clifton Childers MD Poker Room Manager Division of Hospital Medicine Teaching Attending [...] good coping mechanism Heme/Lymphatic: negative Endocrine: negative Cisco Network Architect: negative Past Medical History: History of chronic [...] he r CRPS in the pastm [facility] pharmacy does not carry this so we are trying to arrange for her to take her home medication via pharmacy approval 5. APS will sign off but please call with questions/concerns Aba Dorman MD, PGY 3 School Janitor [place]-2 APS Pager: [phone] BILLING INFORMATION Deferred to attending physician. Ms. [...] up at this point. Please contact APS (#[phone]) if further assistance is needed. Ulices Lopez MD BILLING INFORMATION [facility] DEPARTMENT: [id number] Place of Service:- Inpatient Date of Service: 10/23/2015 CSN: [id number] Suggested Modifier: GC - Resident Involved Suggested CPT: 94985 - Follow up visit (includes PNB) - [...] today recd call from Dr. Madrid from [facility]. She has known pt for many yea rs and suggested ketamine and propofol gtt. Updated her on APS recommendations. She will hav e her office fax her clinic records to us. Pt was seen with Dr. Childers. Milton Moreau MD PGY-3, Internal Medicine Pager [phone] Pro Edwards RN - 10/22/2015 10:06 AM PSTActing as scribe for the UR Committee Physician named below. The primary medical team for this patient and the [facility] UR Committee have agreed after furth er study that an inpatient admission was not medically necessary. This hospital stay is con verted to an outpatient stay through use of Medicare Condition Code 44. The patient was not ified of this change in writing. The providers involved in this decision were: For patient s primary medical team: Melissa Childers MD For [facility] UR Committee: Kerry HARRIS RN CM [...] | | | LABORATORY | | | GERMAN | | | SERVICES, | | | [...] | + + + + + | [facility] | [address] | [place] [address] | | | SERVICES, CORE | PARK [...] | + +---------+ + + | [facility] DEPARTMENT OF | | | | [...] | + + + | STAT | [facility] | | | LABORATORY | | | LILLIAN CROSS | + + + + + + + + | Performing | Address | City/State/Zipcode | Phone Number | | Organization | | | | + + + + + | [facility] | [address] | [place] [address] | | | SERVICESLILLIAN | [address] [...] | | | LABORATORY | | | [place] | | | SERVICES, | | | [...] MDRD equation recommended by the | [facility] | | National Kidney Disease Education [...] [facility] | [address] | [place] [address] | | | SERVICES, CORE | PARK [...] | + + + + + | [facility] | [address] | [place] [address] | | | SERVICES, CORE | GUILLERMO [...] [facility] | [address] | [place] [address] | | | SERVICES, CORE | PARK [...] + + + + + | [facility] | [address] | [place] [address] | | | SERVICES, CORE | PARK [...] | + + + + + | [facility] | [address] | [place] [address] | | | SERVICES, CORE | GUILLERMO [...] | | | LABORATORY | | | GERMAN | | | SERVICES, | | | [...] KEVIN SHAH | [address] | [place] [address] | | | SERVICES, CORE | PARK [...] | | | | | 1 dose, [facility] 10/23/15 at 1245 | | PM PST | | | | + +-------+ +-------+---+---+ +---+---+ | | | +---+---+ + +-------+ +--------+---+---+ | ibuprofen (MOTRIN) tablet 600 | Given | 10/25/20 | 600 mg | | | | mg 600 mg, oral, EVERY 6 HOURS, | | 15 8:05 | | | | | First dose on [facility] 10/23/15 at | | AM PST [...] | | | | | NEEDED, Starting [facility] 10/23/15 at | | | | [...]
--- OUTSIDE RECORDS SUMMARY | ~2020-05-29 | XMS | Encounter Summary ---
Demographics + + + | Address | [address] | | | [place] [address] | + + + | Home Phone [...] Team Providers + +------+ + | Care Waste Management Engineer Name | Role | Phone | [...] + + | 12/05/ | Surgery | [facility] | Alex Sanchez, | BILATERAL DORSAL | | 2019 | | Center for Health | ,PhD [address] [facility] | ROOT GANGLION SPINAL | | | | and Healing Surgery | [address] | CORD STIMULATOR | | | | Center Admitting | [place], [place] | IMPLANT LUMBAR; | | | | Desk Located on the | [address] | POSTERIOR | | | | 4th floor [address] | [phone] | | | | | [address] [place], | | | | | | [place] [address] | | | +--------+---------+ + + + [...] s/p successful DRG trial lead system with Oktalogic System on 09/25/2018. No changes in H&P, [...] OPERATIVE NOTE Date: December 05, 2018 Location: [facility] [place] | | | Tracie Farah [id number] :1990, presents to clinic | | | for: Dorsal root ganglion stimulator implant PROCEDURE: Dorsal | | | root ganglion stimulator implant PRE-OPERATIVE DIAGNOSIS: Complex | | | regional Pain syndrome type 1 of left lower extremity | | | POST-OPERATIVE DIAGNOSIS: Complex regional Pain syndrome type 1 of | | | left lower extremity ATTENDING PHYSICIAN: Alex Sanchez | | | LUNCHROOM OPERATOR: Arben Valerio MD ANESTHESIA: sedation by IVIS Cole | | | Carmen, supervised by distributor sales consultant Ilir Valdes. | | | FINDINGS: Appropriate [...] sedation. Ms. Farah was escorted to the [facility] | | | [place], where she [...] to the | | | [facility] access representative. A test stimulation was performed and [...] recovery. Images were saved, and sent to [employer]. | | | Alex Sanchez (attending) was present for the entire procedure. | | | Arben Valerio MD I was present for the entire procedure | | | (spinal cord stimulator implantation with DRG leads at left L4 and | | | L5) and all bocanegra elements of this visit. I reviewed the | | | documentation of the other TELECOMMUNICATION EQUIPMENT REPAIRER providers and concur with | | | Iman's findings. I edited his note. Alex Sanchez, | | | ,PhD [employer] Anesthesiology and Pain Management | | | [facility] | | + + + HCG URINE, [...] + | JOSE ANTONIO MIN | [address] [facility] | [place] [address] | | | OF CARE TESTS | [...]
--- OUTSIDE RECORDS SUMMARY | ~2020-05-29 | XMS | Encounter Summary ---
Demographics + + + | Address | [address] | | | [place] [address] | + + + | Home Phone [...] Team Providers + +------+ + | Care Lining Cutter Name | Role | Phone | + +------+ + | Justo Vazquez MD | PCP | | + +------+ + Encounter Details +--------+ + + + + | Date | Type | Department | Care Team | Description | +--------+ + + + + | 03/17/ | MyChart | [facility] | Yun Frey NP | Welcome | | 2017 | Encounter | Pain Center at | [address] | | | | | [facility] | [place], [place] | | | | | [address] | [address] | | | | | [place] for [facility] | [phone] | | | | | and Healing, | | | | | | | | | | | | Floor [place], [place] | | | | | | [address] | | | | | | [phone] | | | +--------+ + + + [...]
--- OUTSIDE RECORDS SUMMARY | ~2020-05-29 | XMS | Encounter Summary ---
Demographics + + + | Address | [address] | | | [place] [address] | + + + | Home Phone [...] Team Providers + +------+ + | Care Auto Damage Insurance Appraiser Name | Role | Phone | [...] Rd | | | | | | [place], [place] | | | | | | [address] | | | +--------+ + + + [...]
--- OUTSIDE RECORDS SUMMARY | ~2020-05-29 | XMS | Encounter Summary ---
Demographics + + + | Address | [address] | | | [place] [address] | + + + | Home Phone [...] Team Providers + +------+ + | Care External Grinder Tender Name | Role | Phone | + +------+ + | Justo Vazquez MD | PCP | | + +------+ + Encounter Details +--------+ + + + + | Date | Type | Department | Care Team | Description | +--------+ + + + + | 07/28/ | Documentati | [facility] Comprehensive | Ilene Bright, | | | 2017 | on | Pain Center at | SENIOR NETWORK SECURITY ENGINEER [address] | | | | | [facility] | [facility] [place] | | | | | [address] | [address] | | | | | [place] for [facility] | [phone] | | | | | and Healing, | | | | | | | | | | | | Floor [place], [place] | | | | | | [address] | | | | | | [phone] | | | +--------+ + + + [...]
--- OUTSIDE RECORDS SUMMARY | ~2020-05-29 | XMS | Encounter Summary ---
Demographics + + + | Address | [address] | | | [place] [address] | + + + | Home Phone [...] Team Providers + +------+ + | Care Grade Checker Name | Role | Phone | [...] | Orthopedics | Diagnoses | Sdrulla, | Morton, | | | | | Complex | Alex Alba, | Ranjeet Odom MD | | | | | regional | ,PhD [address] | [address] | | | | | pain | [address] | [address] | | | | | syndrome | [place] | [place], [place] | | | | | type 1 of | Rd | [address] | | | | | left lower | [place], [place] | Phone: | | | | | extremity | [address] | [phone] | | | | | Procedures | Phone: | Fax: | | | | | CONSULT TO | [phone] | [phone] | | | | | ORTHOPEDICS | Fax: | | | | | | AND | [phone] | | | | | | REHABILITATI [...] | | | [facility] | [facility] [address] [address] | | | | | [address] | [place], [place] | | | | | [facility] | [address] | | | | | and Healing, | [phone] | | | | | | | | | | | Floor [place], [place] | | | | | | [address] | | | | | | [phone] | | | +--------+ + + + [...]
--- OUTSIDE RECORDS SUMMARY | ~2020-05-29 | XMS | Encounter Summary ---
Demographics + + + | Address | [address] | | | [place] [address] | + + + | Home Phone [...] Team Providers + +------+ + | Care Massage Operator Name | Role | Phone | + +------+ + | Justo Vazquez MD | PCP | | + +------+ + Encounter Details +--------+ + + + + | Date | Type | Department | Care Team | Description | +--------+ + + + + | 03/23/ | MyChart | [facility] | Ilene Bright, | Welcome | | 2017 | Encounter | Pain Center at | PINION SORTER [address] | | | | | [facility] | [place], [place] | | | | | [address] | [address] | | | | | [place] for [facility] | [phone] | | | | | and Healing, | | | | | | | | | | | | Floor [place], [place] | | | | | | [address] | | | | | | [phone] | | | +--------+ + + + [...]
--- OUTSIDE RECORDS SUMMARY | ~2020-05-29 | XMS | Encounter Summary ---
Demographics + + + | Address | [address] | | | [place] [address] | + + + | Home Phone [...] Team Providers + +------+ + | Care Calibration Engineer Name | Role | Phone | [...] | | | | | Procedures | [place], [place] | | | | | | MR | [id number] | | | | | | ENTEROGRAPHY [...] | | | | | Procedures | [place], [place] | | | | | | MR | [id number] | | | | | | ENTEROGRAPHY [...] | 2017 | Encounter | Services at [facility] | [address] | | | | | [address] | [place], [place] | | | | | Giuliana Maldonado [place] | [address] | | | | | [facility] | [phone] | | | | | [place], [place] | | | | | | [address] | | | | | | [phone] | | | +--------+ + + + [...]
--- OUTSIDE RECORDS SUMMARY | ~2020-05-29 | XMS | Encounter Summary ---
Demographics + + + | Address | [address] | | | [place] [address] | + + + | Home Phone [...] Team Providers + +------+ + | Care Army Officer Name | Role | Phone | [...] | | | [address] | [facility] | | | | | [place], [place] | [place], [place] | | | | | [address] | [address] | | | | | | [phone] | | | | | | | [...] | + +--------+ + + + | VESSEL CAPTAIN MISC PROCEDURE | Routin | 12/27/2017 | Complex regional | Results for this | | | e | 3:28 PM | pain syndrome type 1 | procedure are in the | | | | PST | of left lower | results section. | | | | | extremity | | + +--------+ + + + documented in this encounter Results [facility] MISC PROCEDURE (12/27/2017 3:28 PM PST) [...]
--- OUTSIDE RECORDS SUMMARY | ~2020-05-29 | XMS | Encounter Summary ---
Demographics + + + | Address | [address] | | | [place] [address] | + + + | Home Phone [...] Team Providers + +------+ + | Care Flat Lock Operator Name | Role | Phone | + +------+ + | Allegra Ganhdi | PCP | | + +------+ + Encounter Details +--------+ + + + + | Date | Type | Department | Care Team | Description | +--------+ + + + + | 02/13/ | Hospital | Nuclear Medicine | | | | 2011 | Encounter | at [facility] [address] | | | | | | [address] | | | | | | [address], | | | | | | [place], | | | | | | [place] [address] | | | | | | [phone] | | | +--------+ + + + [...]
--- OUTSIDE RECORDS SUMMARY | ~2020-05-29 | XMS | Encounter Summary ---
Demographics + + + | Address | [address] | | | [place] [address] | + + + | Home Phone [...] Team Providers + +------+ + | Care Parachute Officer Name | Role | Phone | [...] | | | regional | [place] | [address] | | | | | pain | FAMILY | [address] | | | | | syndrome), | MEDICINE P | [address] | | | | | lower limb | [address] | [place], [place] | | | | | Gait | [place], | [address] | | | | | disturbance | [place] [address] | Phone: | | | | | Muscle pain | Phone: | [phone] | | | | | Procedures | [phone] | Fax: | | | | | REQUEST TO | Fax: | [phone] | | | | | SURGERY | [phone] | | | | | | HEAD OF QUALITY | | | +--------+--------+ + + + + Encounter Details +--------+ + + + + | Date | Type | Department | Care Team | Description | +--------+ + + + + | 03/01/ | Procedure | Pain Center at [facility] | Dale Cantu, | Foot pain (left); | | 2011 | | [address] | [address] | Procedure | | | | Center for Health | [address] | | | | | and Healing, | [place], [place] | | | | | [facility] | [address] | | | | | Floor [place], [place] | [phone] | | | | | [address] | | | | | | [phone] | | | +--------+ + + + [...] migh t be different from the original. [facility] Patient Instructions - Post Interventional Procedure Date: 03/01/2012 Name: Tracie Farah Date of : 1990 Procedure Performed: LUMBAR SYMPATHETIC BLOCK. Procedure Provider: Dale Cantu If you have any problems you believe are associated with your procedure tonight, Please call the Hospital Helpdesk Analyst, and ask for the Pain Management Consu ltant. If you have problems or questions between 9:00 am and 4:00 pm, Please call the [facility] Nurse Triage Line, . If you [...] to the larry ent. LAKEISHA HERRING MD [facility] documented in this encounter Progress Notes Dale Cantu MD - 03/01/2012 2:21 PM PDTI was present for the entire procedure (lumbar sympathetic block) and all bocanegra elements of this visit. I reviewed the documentation of the other URBAN ANTHROPOLOGIST providers and concur with Dr. Herring's findings. [...] benefit from multidisciplinary treatment. DALE CANTU MD School Supervisor, [facility] Fishing Game Warden, Pain Medicine Professor, Anesthesiology & Perioperative Medicine NAEiDiana scott RN - 03/01/2012 1:35 PM PDT PRE-SEDATION: Date: March 01, 2012 Tracie Farah [id number] 1990 ALLERGIES: Morphine Previous reaction to Sedation/Analgesia: MEDICATIONS: Current Outpatient Prescriptions Medication DULoxetine (CYMBALTA) 30 mg Oral Capsule, Delayed Release(E.C.) HYDROcodone-acetaminophen (NORCO) 10-325 mg Oral Tablet levonorgestrel (MIRENA) 20 mcg/24 hr Intrauterine IUD LORazepam 1 mg Oral Tablet promethazine 25 mg Oral Tablet Meets NPO Guidelines. IV ACCESS: IV in Place IV Start Time 52640, 22g, DRH BASELINE VS: See Sedation Flow Sheet. Tracie Farah [id number] 1990, presents to clinic for: Procedure: Lumbar [...] ml. 1344: Procedure complete. Pt returned to wayne 1 per man in stable condiotion. IV [...] OPERATIVE NOTE Date: March 01, 2012 Location: [facility] Procedure Room Tracie Donaldson [facility] [id number] :1990, presents to clinic for: PROCEDURE: Lumbar sympathetic block LEVEL/LATERALITY: left L3 PRE-OPERATIVE DIAGNOSIS: 355.71B CRPS (complex regional pain syndrome), lower limb 719.46 Pain in joint, lower leg POST-OPERATIVE DIAGNOSIS: 355.71B CRPS (complex regional pain syndrome), lower limb 719.46 Pain in joint, lower leg ATTENDING PHYSICIAN: Dale Cantu ENVIRONMENTAL CONTROL ADMINISTRATOR: Fellow Lakeisha Herring MD ANESTHESIA: sedation delivered [...] sedation. Ms. Farah was escorted to the [facility] Procedure Ro om, where she was [...] compromise. Ms. Farah was transported to the [facility] post-procedure recovery area where [...] block. Images were saved, and sent to [facility]). Ms. Farah will have her next appointment [...]
--- OUTSIDE RECORDS SUMMARY | ~2020-05-29 | XMS | Encounter Summary ---
Demographics + + + | Address | [address] | | | [place] [address] | + + + | Home Phone [...] Providers + +------+ + | Care Social Work Job Titles Name | Role | Phone [...] | | 2017 | | Center at [facility] [address] | | Review | | | | [address] [facility] | | | | | | for Health and | | | | | | [facility], [facility] [address] | | | | | | [place], [place] | | | | | | [address] | | | | | | [phone] | | | +--------+ + + + [...]
--- OUTSIDE RECORDS SUMMARY | ~2020-05-29 | XMS | Encounter Summary ---
Demographics + + + | Address | [address] | | | [place] [address] | + + + | Home Phone [...] Team Providers + +------+ + | Care Cabin Man Name | Role | Phone | [...] 2017 | | Center at [facility] [address] | | | | | | [address] [facility] | | | | | | for Health and | | | | | | Healing, Building [address] | | | | | | [place], [place] | | | | | | [address] | | | | | | [phone] | | | +--------+--------+ + + + [...]
--- OUTSIDE RECORDS SUMMARY | ~2020-05-29 | XMS | Encounter Summary ---
Demographics + + + | Address | [address] | | | [place] [address] | + + + | Home Phone [...] Team Providers + +------+ + | Care Banana Loader Name | Role | Phone | + +------+ + | Justo Vazquez MD | PCP | | + +------+ + Encounter Details +--------+ + + + + | Date | Type | Department | Care Team | Description | +--------+ + + + + | 07/30/ | Telephone | [facility] | Alex Sanchez, | | | 2019 | | Pain Center at | ,PhD [address] | | | | | [facility] | [address] | | | | | [address] | [place], [place] | | | | | [place] for [facility] | [address] | | | | | and Healing, | [phone] | | | | | | | | | | | Floor [place], [place] | | | | | | [address] | | | | | | [phone] | | | +--------+ + + + [...]
--- OUTSIDE RECORDS SUMMARY | ~2020-05-29 | XMS | Encounter Summary ---
Demographics + + + | Address | [address] | | | [place] [address] | + + + | Home Phone [...] Team Providers + +------+ + | Care Shallot Packer Name | Role | Phone | [...] | Request (ketamine) | | | | [facility] | [address] | | | | | [address] | [place], [place] | | | | | [facility] | [address] | | | | | and Healing, | [phone] | | | | | | | | | | | Floor [place], [place] | | | | | | [address] | | | | | | [phone] | | | +--------+ + + + [...]
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
--- OUTSIDE RECORDS SUMMARY | ~2020-05-29 | XMS | Encounter Summary ---
Demographics + + + | Address | [address] | | | [place] [address] | + + + | Home Phone [...] Providers + +------+ + | Care Semiconductor Bonder Name | Role | Phone | + [...] | Pain Center at | [address] | | | | | [facility] | [address] [address] | | | | | [address] | [place], [place] | | | | | Center for Health | [address] | | | | | and Healing, | [phone] | | | | | [facility] | | | | | | Floor [place], [place] | | | | | | [address] | | | | | | [phone] | | | +--------+ + + + [...]
--- OUTSIDE RECORDS SUMMARY | ~2020-05-29 | XMS | Encounter Summary ---
Demographics + + + | Address | [address] | | | [place] [address] | + + + | Home Phone [...] Team Providers + +------+ + | Care Memory Care Program Director Name | Role | Phone | [...] Oliveira | | 2011 | IP | [address] | | House - Approved | | | | [place]donado [place], | | | | | | [place] [address] | | | +--------+ + + + [...]
--- OUTSIDE RECORDS SUMMARY | ~2020-05-29 | XMS | Encounter Summary ---
Demographics + + + | Address | [address] | | | [place] [address] | + + + | Home Phone [...] | Pain Center at | [address] | | | | | [facility] | [facility] [address] | | | | | [address] | [place], [place] | | | | | Center for Health | [address] | | | | | and Healing, | [phone] | | | | | [facility] | | | | | | Floor [place], [place] | | | | | | [address] | | | | | | [phone] | | | +--------+ + + + [...]
--- OUTSIDE RECORDS SUMMARY | ~2020-05-29 | XMS | Encounter Summary ---
Demographics + + + | Address | [address] | | | [place] [address] | + + + | Home Phone [...] Providers + +------+ + | Care Junior Network Administrator Name | Role | Phone | [...] + + | 09/30/ | Telephone | [facility] Ilene | Ilene Bright, | Phone communication | | 2017 | | Pain Center at | CUFF SETTER OVERLOCK [address] | | | | | [facility] | [place], [place] | | | | | [address] | [address] | | | | | [facility] | [phone] | | | | | and Healing, | | | | | | Building | | | | | | Floor [facility] [place] | | | | | | [address] | | | | | | [phone] | | | +--------+ + + + [...]
--- OUTSIDE RECORDS SUMMARY | ~2020-05-29 | XMS | Encounter Summary ---
Demographics + + + | Address | [address] | | | [place] [address] | + + + | Home Phone [...] Team Providers + +------+ + | Care Survey Research Professor Name | Role | Phone | [...] + + | 10/07/ | Telephone | [facility] | Yosef Kenney MD | Wound infection | | 2018 | | Pain Center at | [address] | (Concern for DRG | | | | [facility] | [address], | trial wound | | | | [address] | [place] [address] | infection) | | | | [place] for Health | [phone] | | | | | and Healing, | | | | | | | | | | | | [place], [place] | | | | | | [address] | | | | | | [phone] | | | +--------+ + + + [...]
--- OUTSIDE RECORDS SUMMARY | ~2020-05-29 | XMS | Encounter Summary ---
Demographics + + + | Address | [address] | | | [place] [address] | + + + | Home Phone [...] Team Providers + +------+ + | Care Service Observer Name | Role | Phone | + [...] | | [address] [facility] for | [place], [place] | | | | | Health and Healing, | [address] | | | | | | [phone] | | | | | [place], [place] | | | | | | [address] | | | | | | [phone] | | | +--------+ + + + [...] Note | + + | Service Account, [place] Res In Interface - 03/08/2018 9:42 AM [...]
--- OUTSIDE RECORDS SUMMARY | ~2020-05-29 | XMS | Encounter Summary ---
Demographics + + + | Address | [address] | | | [place] [address] | + + + | Home Phone | | + + + | Preferred Language | Unknown | + + + | Marital Status | Single | + + + | Mandaeism Affiliation | 1073 | + + + | Race | Unknown | + + + | Ethnic Group | Unknown | + + + Author + + + | Author | [facility] | | | and [place] | + + + | Organization | [facility] | | | and [place] [...] [place] | | | | | [address] | | + + + + + | Bryant Farah | ERICKA | Unknown | | + + + + + Care Team Providers + +------+ + | Care Foam Fabricator Name | Role | Phone | + +------+ + PCP | Unavailable | + +------+ + Encounter Details +--------+ + + + + | Date | Type | Department | Care Team | Description | +--------+ + + + + | 08/11/ | Hospital | [facility] | | | | 1998 | Encounter | MED CTR XRAY [address] | | | | | | [address] | | | | | | [place] [address] | | | | | | [phone] | | | +--------+ + + + [...]
--- OUTSIDE RECORDS SUMMARY | ~2020-05-29 | XMS | Encounter Summary ---
Demographics + + + | Address | [address] | | | [place] [address] | + + + | Home Phone [...] Team Providers + +------+ + | Care Dermatology Nurse Practitioner Name | Role | Phone | + +------+ + | Justo Vazquez MD | PCP | | + +------+ + Encounter Details +--------+ + + + + | Date | Type | Department | Care Team | Description | +--------+ + + + + | 10/09/ | Telephone | [facility] | Alex Sanchez, | | | 2018 | | Pain Center at | ,PhD [address] | | | | | [facility] | [address] | | | | | [address] | [place], [place] | | | | | [place] for [facility] | [address] | | | | | and Healing, | [phone] | | | | | | | | | | | Floor [place], [place] | | | | | | [address] | | | | | | [phone] | | | +--------+ + + + [...]
--- OUTSIDE RECORDS SUMMARY | ~2020-05-29 | XMS | Encounter Summary ---
Demographics + + + | Address | [address] | | | [place] [address] | + + + | Home Phone [...] Providers + +------+ + | Care Sap Portal Architect Name | Role | Phone | [...] Pain Medicine | Diagnoses | Chasity | Drapery Operator Chh1 | | | | / Pain | Abdominal | MD Kenny | [address] | | | | Management | pain, | [address] | [facility] | | | | | unspecified | [facility] | for Health | | | | | location | Rd | and Healing, | | | | | Procedures | [place], [place] | Building | | | | | CONSULT TO | [address] | 1,15th Floor | | | | | PAIN | | [place], [place] | | | | | MANAGEMENT | | [address] | | | | | | | Phone: | | | | | | | [phone] | | | | | | | Fax: | | | | | | | [phone] | +--------+--------+ + + + + Encounter Details +--------+---------+ + + + | Date | Type | Department | Care Team | Description | +--------+---------+ + + + | 07/11/ | Office | [facility] Comprehensive | Ilene Bright, | Pain of upper | | 2017 | Visit | Pain Center at | ARTIFICIAL SNOW MAKING MACHINE OPERATOR [address] | abdomen (Primary | | | | [place] | [place], [place] | Dx); Intractable | | | | [address] | [address] | cyclical vomiting | | | | [facility] | [phone] | with nausea; | | | | and Healing, | | Irritable bowel | | | | Building | | syndrome with | | | | Floor [place], [place] | | constipation; | | | | [address] | | Complex regional | | | | [phone] | | pain syndrome type 1 | [...] and determine next steps. Ilene Childs DNP, ARTIFICIAL SNOW MAKING MACHINE OPERATOR-C Adult Pain Service /[facility] [address] [place] [address] documented in this encounter Progress Notes Ilene [...] in the process of [facility]acie. She has also changed her [...] her abdominal pain an d associated symptoms. [facility] QUESTIONNAIRE BRIEF PAIN 07/11/2017 Please rate how [...] has interfered with your sleep : 5 CARDIOLOGY CLINICAL CONSULTANT Questionnaire Follow-up Patient 07/11/2017 Please describe the [...] History Social History Narrative Single. Goes to [employer] with a light load. Has been working at [employer], can' t work on [employer]. Has roommates. Allergies Allergen Reactions Morphine Anaphylaxis [...] by physician. Concentration is 150mg/mL. Compounded by [facility] ) LAMOTRIGINE 200 MG TABLET Take [...] GRAM-5.86 GRAM SOLUTION Take as directed by [facility] Digestive Health- 2 gallon bowel [...] and summary of old medical records (source: [employer]), as summarized in the body of the [...] Shantel Salinas, am functioning as a medical equipment technician for TERESA Clark DNP-C I have reviewed and verified the above scribed note of my visit with this patient as record ed by Shantel Salinas. Ilene Childs DNP, TERESA-C Adult Pain [facility] /[facility] [address] [place] [address] Addendum: I paged Dr. Les Gaspar. He was out of the clinic, I spoke with the covering provider and sha dandre Tracie's request for food allergy testing. Since Tracie thinks her pain and vomiting may b e triggered by gluten, covering provided ordered appropriate workup, which I communicated to Tracie and the the lab in [place], [place]. She will followup with me and GI once these results are available. Ilene Childs DNP, ARTIFICIAL SNOW MAKING MACHINE OPERATOR-C Adult Pain Service /[facility] [address] [place] [address] documented in this e ncounter Plan of [...]
--- OUTSIDE RECORDS SUMMARY | ~2020-05-29 | XMS | Encounter Summary ---
Demographics + + + | Address | [address] | | | [place] [address] | + + + | Home Phone [...] Providers + +------+ + | Care Employment Training Specialist Name | Role | Phone | + +------+ + | Justo Vazquez MD | PCP | | + +------+ + Encounter Details +--------+ + + + + | Date | Type | Department | Care Team | Description | +--------+ + + + + | 04/03/ | Telephone | [facility] | Alex Sanchez, | | | 2019 | | Pain Center at | ,PhD [address] | | | | | [facility] | [address] | | | | | [address] | [place], [place] | | | | | [place] for [facility] | [address] | | | | | and Healing, | [phone] | | | | | | | | | | | Floor [place], [place] | | | | | | [address] | | | | | | [phone] | | | +--------+ + + + [...]
--- OUTSIDE RECORDS SUMMARY | ~2020-05-29 | XMS | Encounter Summary ---
Demographics + + + | Address | [address] | | | [place] [address] | + + + | Home Phone [...] Team Providers + +------+ + | Care Residence Leasing Agent Name | Role | Phone | + +------+ + | Justo Vazquez MD | PCP | | + +------+ + Encounter Details +--------+ + + + + | Date | Type | Department | Care Team | Description | +--------+ + + + + | 10/20/ | Telephone | [facility] | Ilene Bright, | | | 2017 | | Pain Center at | PHOTO RETOUCHER [address] | | | | | [facility] | [place], [place] | | | | | [address] | [address] | | | | | [place] for [facility] | [phone] | | | | | and Healing, | | | | | | | | | | | | Floor [place], [place] | | | | | | [address] | | | | | | [phone] | | | +--------+ + + + [...]
--- OUTSIDE RECORDS SUMMARY | ~2020-05-29 | XMS | Encounter Summary ---
Demographics + + + | Address | [address] | | | [place] [address] | + + + | Home Phone [...] Team Providers + +------+ + | Care Wildlife Refuge Manager Name | Role | Phone | [...]
--- OUTSIDE RECORDS SUMMARY | ~2020-05-29 | XMS | Encounter Summary ---
Demographics + + + | Address | [address] | | | [place] [address] | + + + | Home Phone [...] Providers + +------+ + | Care Fire Pot Operator Name | Role | Phone | + +------+ + | Justo Vazquez MD | PCP | | + +------+ + Encounter Details +--------+ + + + + | Date | Type | Department | Care Team | Description | +--------+ + + + + | 12/27/ | Ancillary | [facility] | Alex Sanchez, | | | 2018 | Orders | Pain Center at | ,PhD [address] | | | | | [facility] | [address] | | | | | [address] | [place], [place] | | | | | [place] for [facility] | [address] | | | | | and Healing, | [phone] | | | | | | | | | | | Floor [place], [place] | | | | | | [address] | | | | | | [phone] | | | +--------+ + + + [...]
--- OUTSIDE RECORDS SUMMARY | ~2020-05-29 | XMS | Encounter Summary ---
Demographics + + + | Address | [address] | | | [place] [address] | + + + | Home Phone [...] Team Providers + +------+ + | Care Shoe Packer Name | Role | Phone | + +------+ + | Justo Vazquez MD | PCP | | + +------+ + Encounter Details +--------+ + + + + | Date | Type | Department | Care Team | Description | +--------+ + + + + | 03/12/ | Telephone | [facility] | Alex Sanchez, | | | 2019 | | Pain Center at | ,PhD [address] | | | | | [facility] | [address] | | | | | [address] | [place], [place] | | | | | [place] for [facility] | [address] | | | | | and Healing, | [phone] | | | | | | | | | | | Floor [place], [place] | | | | | | [address] | | | | | | [phone] | | | +--------+ + + + [...]
--- OUTSIDE RECORDS SUMMARY | ~2020-05-29 | XMS | Encounter Summary ---
Demographics + + + | Address | [address] | | | [place] [address] | + + + | Home Phone [...] Team Providers + +------+ + | Care Tailings Dam Pumper Name | Role | Phone | [...] | | | regional | [place] | [address] | | | | | pain | FAMILY | [address] | | | | | syndrome), | MEDICINE P | [id number] | | | | | lower limb | [address] | [place], [place] | | | | | Pain in | [place], | [address] | | | | | joint, lower | [place] [address] | Phone: | | | | | leg | Phone: | [phone] | | | | | Procedures | [phone] | Fax: | | | | | REQUEST TO | Fax: | [phone] | | | | | SURGERY | [phone] | | | | | | MAINTENANCE PAINTER APPRENTICE | | | +--------+--------+ + + + [...] | | | sympathetic | [place] | [address]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 | FAMILY | [address] | | | | | of lower | MEDICINE P | [id number] | | | | | limb | [address] | [place], [place] | | | | | | [place], | [address] | | | | | | [place] [address] | Phone: | | | | | | Phone: | [phone] | | | | | | [phone] | Fax: | | | | | | Fax: | [phone] | | | | | | [phone] | | +--------+--------+ + + + + Encounter Details +--------+---------+ + + + | Date | Type | Department | Care Team | Description | +--------+---------+ + + + | 06/06/ | Office | [facility] Comprehensive | Dale Cantu, | CRPS (complex | | 2011 | Visit | Pain Center at | MD [address] [facility] | regional pain | | | | [facility] | [facility] [address] | syndrome), lower | | | | [address] | [place], [place] | limb; Pain in joint, | | | | Center for Health | [address] | lower leg | | | | and Healing, | [phone] | | | | | | | | | | | Floor [place], [place] | | | | | | [address] | | | | | | [phone] | | | +--------+---------+ + + + [...] Dale Cantu MD - 06/06/2012 11:49 AM [facility] Pre-Procedure Instructions: The procedure you discussed with your doctor is called: SCS TRIAL LUMBAR [facility]. Please make sure this is scheduled with the Marketing Proposal Specialist. Please bring a residential recycle driver with you. We may give you medications that make you drowsy or otherw ise unsafe to drive. If you do not have a residential recycle driver, we will not be able to do your procedure. DO NOT EAT ANYTHING AFTER MIDNIGHT If your appointment is after 1 PM , you may have a very light, low fat breakfast, such as h long term a piece of dry toast or a [...] PLEASE CONTACT THE COMPREHENSIVE PAIN CENTER AT [phone] ([phone]) FOR QUESTIONS OR IF YOU NEED TO CANCEL YOUR APPOINTMENT. [facility] Comprehensive Pain Center documented in [...] not signed. Given information. DALE CANTU MD Mixing Plant Dumper, [facility] Sleep Medicine Physician, Pain Medicine Professor, Anesthesiology & Perioperative Medicine ollHomer manriquez MD - 06/06/2012 11:17 AM PDT [facility] Comprehensive Pain Center Return Visit [...] and a pain drawing which I reviewed. NUT PROCESSING SUPERVISOR Brief Pain Inventory: (ten= worst possible [...] The Review of Systems obtained by the FLIGHT INSTRUCTOR was reviewed. Additional Review of Systems: Bones, [...] up with Dr. Dale Cantu at the [facility] today for left foot CRPS which [...] therapy Homer Elaine MD Pain Medicine Fellow [facility] [place] Evelia Parsons - 11:07 AM PDTCMA History: [...]
--- OUTSIDE RECORDS SUMMARY | ~2020-05-29 | XMS | Encounter Summary ---
Demographics + + + | Address | [address] | | | [place] [address] | + + + | Home Phone [...] Team Providers + +------+ + | Care Airway Controller Name | Role | Phone | + +------+ + | Allegra Chaudhary | PCP | | + +------+ + Encounter Details +--------+ + + + + | Date | Type | Department | Care Team | Description | +--------+ + + + + | 08/13/ | MyChart | Digestive Health | Aav Carbajal | Bowel Prep | | 2015 | Encounter | Center at [facility] [address] | MD Melissa | | | | | [address] [facility] | | | | | | for Health and | | | | | | Healing, Building [address] | | | | | | [place], [place] | | | | | | [address] | | | | | | [phone] | | | +--------+ + + + [...]
--- OUTSIDE RECORDS SUMMARY | ~2020-05-29 | XMS | Encounter Summary ---
Demographics + + + | Address | [address] | | | [place] [address] | + + + | Home Phone [...] Providers + +------+ + | Care Security Support Analyst Name | Role | Phone [...] | | | sympathetic | [place] | [address]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 | FAMILY | [address] | | | | | of lower | MEDICINE P | [address] | | | | | limb | [address] | [place], [place] | | | | | | [place], | [address] | | | | | | [place] [address] | Phone: | | | | | | Phone: | [phone] | | | | | | [phone] | Fax: | | | | | | Fax: | [phone] | | | | | | [phone] | | +--------+--------+ + + + + Encounter Details +--------+---------+ + + + | Date | Type | Department | Care Team | Description | +--------+---------+ + + + | 08/04/ | Office | [facility] | Dale Cantu, | CRPS (complex | | 2011 | Visit | Pain Center at | MD 1956 [facility] | regional pain | | | | [facility] | [facility] [address]2072 | syndrome), lower | | | | [address] | [place], [place] | limb (Primary Dx) | | | | [place] for Health | [address] | | | | | and Healing, | [phone] | | | | | Building | | | | | | Floor [place], [place] | | | | | | [address] | | | | | | [phone] | | | +--------+---------+ + + + [...] evaluated the patient with Fellow Nhan Guo [facility], who conducted the initial history. I reviewed the history in det ail and edited his note. I was present for the examination and formulation portions of the encounter. I agree with the findings and the plan of care as documented in our notes. DALE CANTU MD Pediatric Physician, [facility] Hot Stick Man, Pain Medicine Professor, Anesthesiology & Perioperative Medicine [...] physical activity and social withdrawal enok Gutierrez, [facility] - 08/04/2012 7:25 AM PDTFormatting [...] has been treated at the [facility] for lower limb pain with the [...] and a pain drawing which I reviewed. [facility] Brief Pain Inventory: (ten= worst possible [...] Review of Systems obtained by the [facility] was reviewed. Additional Review of Systems: [...] multiple programs with both [facility] and [facility] programs, however it appears that it does [...] bath today, OK to shower. HENOK GUO [facility] COMPREHENSIVE PAIN CENTER documented in this en counter Plan of Treatment Not on filedocumented as of this encounter Visit Diagnoses + + | Diagnosis | + + | CRPS (complex regional pain syndrome), lower limb - Primary Causalgia of lower limb | + + documented in this encounter
--- OUTSIDE RECORDS SUMMARY | ~2020-05-29 | XMS | Encounter Summary ---
Demographics + + + | Address | [address] | | | [place] [address] | + + + | Home Phone [...] Team Providers + +------+ + | Care Planting Machine Operator Name | Role | Phone [...] Rd | | | | | | [place], [place] | | | | | | [address] | | | +--------+ + + + [...]
--- OUTSIDE RECORDS SUMMARY | ~2020-05-29 | XMS | Encounter Summary ---
Demographics + + + | Address | [address] | | | [place] [address] | + + + | Home Phone [...] Team Providers + +------+ + | Care Networks Computer Consultant Name | Role | Phone | + +------+ + | Justo Vazquez MD | PCP | | + +------+ + Encounter Details +--------+ + + + + | Date | Type | Department | Care Team | Description | +--------+ + + + + | 12/28/ | Associate Brand Manager | [facility] Comprehensive | Alex Sanchez, | Arthralgia of lower | | 2018 | | Pain Center at | ,PhD [address] | leg, unspecified | | | | [facility] | [address] | laterality (Primary | | | | [address] | [place], [place] | Dx) | | | | Center for [facility] | [address] | | | | | and Healing, | [phone] | | | | | | | | | | | Floor [place], [place] | | | | | | [address] | | | | | | [phone] | | | +--------+ + + + [...]
--- OUTSIDE RECORDS SUMMARY | ~2020-05-29 | XMS | Encounter Summary ---
Demographics + + + | Address | [address] | | | [place] [address] | + + + | Home Phone [...] Providers + +------+ + | Care Manager Club Name | Role | Phone | + [...] | | | | [address] [place] | [facility] [place] | | | | | for Health and | [address] | | | | | Healing, Building [address] | [phone] | | | | | [place], [place] | | | | | | [address] | | | | | | [phone] | | | +--------+ + + + [...]
--- OUTSIDE RECORDS SUMMARY | ~2020-05-29 | XMS | Encounter Summary ---
Demographics + + + | Address | [address] | | | [place] [address] | + + + | Home Phone [...] Team Providers + +------+ + | Care Booking Clerk Name | Role | Phone | + +------+ + | Justo Vazquez MD | PCP | | + +------+ + Encounter Details +--------+ + + + + | Date | Type | Department | Care Team | Description | +--------+ + + + + | 01/06/ | Document-Ms | [facility] | Alex Sanchez, | | | 2018 | annemily | Pain Center at | ,PhD [address] | | | | | [facility] | [address] [facility] [address] | | | | | [address] | [place], [place] | | | | | [place] for [facility] | [address] | | | | | and Healing, | [phone] | | | | | | | | | | | Floor [place], [place] | | | | | | [address] | | | | | | [phone] | | | +--------+ + + + [...]
--- OUTSIDE RECORDS SUMMARY | ~2020-05-29 | XMS | Encounter Summary ---
Demographics + + + | Address | [address] | | | [place] [address] | + + + | Home Phone [...] Team Providers + +------+ + | Care Rigging Engineer Name | Role | Phone | [...] | Pain Center at | ,PhD [address] [facility] | sig) | | | | [facility] | [address] | | | | | [address] | [place], [place] | | | | | [facility] | [address] | | | | | and [place], | [phone] | | | | | [facility] | | | | | | Floor [place], [place] | | | | | | [address] | | | | | | [phone] | | | +--------+ + + + [...]
--- OUTSIDE RECORDS SUMMARY | ~2020-05-29 | XMS | Encounter Summary ---
Demographics + + + | Address | [address] | | | [place] [address] | + + + | Home Phone [...] Providers + +------+ + | Care Insurance Adjuster Name | Role | Phone | [...] + + | 02/21/ | Telephone | [facility] | Alex Sanchez, | Medication Refill | | 2018 | | Pain Center at | ,PhD [address] | Request (ketamine- | | | | [facility] | [address] | mail script to | | | | [address] | [place], [place] | patient) | | | | [facility] | [address] | | | | | and Healing, | [phone] | | | | | | | | | | | Floor [place], [place] | | | | | | [address] | | | | | | [phone] | | | +--------+ + + + [...]
--- OUTSIDE RECORDS SUMMARY | ~2020-05-29 | XMS | Encounter Summary ---
Demographics + + + | Address | [address] | | | [place] [address] | + + + | Home Phone [...] Providers + +------+ + | Care Accounting Bookkeeper Name | Role | Phone | + [...] Oliveira | | 2011 | IP | [address] | | House - Approved | | | | Giuliana Maldonado [place], | | | | | | [place] [address] | | | +--------+ + + + [...]
--- OUTSIDE RECORDS SUMMARY | ~2020-05-29 | XMS | Encounter Summary ---
Demographics + + + | Address | [address] | | | [place] [address] | + + + | Home Phone [...] Providers + +------+ + | Care Communications Department Head Name | Role | Phone | [...] | Diagnoses | Beulah | [address] Attendant | | | | Therapy | CRPS | Janak Martinez MD | [address] | | | | | (complex | [address] | | | | | regional | [address] | Mailcode: | | | | | pain | Mailstop | [facility] | | | | | syndrome), | [id number] | for Health | | | | | lower limb | [place], [place] | and Healing, | | | | | Gait | [address] | [address] | | | | | disturbance | Phone: | [place], [place] | | | | | Muscle pain | [phone] | [address] | | | | | Procedures | Fax: | Phone: | | | | | PHYSICAL | [phone] | [phone] | | | | | THERAPY | [...] | | | | [address] | [place] [address] | syndrome), lower | | | | [address] | [phone] | limb (Primary Dx) | | | | [facility] | | | | | | and Healing, | | | | | | Building 1, | | | | | | Floor [place], [place] | | | | | | [address] | | | | | | [phone] | | | +--------+---------+ + + + [...] might be different f rom the original. [id number] BRODY FARAH Date of : 1990 Start of care: 02/14/2012 Date of onset: 02/14/2012 Referring/Attending Practitioner: Janak Riojas MD . Primary/Referral Diagnosis/ICD-9: 355.71B CRPS (complex regional pain syndrome), lower limb Insurance: Payor: [facility] Plan: BCBS OUT OF STATE Product Type: PP O Service period from: 02/14/2012 to: 08/12/2012 Number visits used/authorized: 11/25 [facility] PHYSICAL THERAPY INITIAL EVALUATION SUBJECTIVE: Age: 21 [...] no pain relief. Admitted to the inpatient [facility] program for 1 month [...] from CRPS program at [facility]. Suggest three phase bone sca n. 2. [...] the psychologists here at the [facility]. 2.2 Physical therapy can reduce pain and improve functional status. Suggest Guillermo Sanon. 3. Medication suggestions: 3.1 Continue titrating up duloxetine. 3.2 As for any patient being managed with chronic opioids, we do recommend that the patient have a signed [facility] [...] and hemr oidectomy. Social History: lives in [place], 22 years old, not working currently, [...] or concerns about therapy: she lives in [place]. She is r equesting family members [...] a token and bocanegra for [facility] site. Treatment began: 1345hrs Treatment ended: 1430hrs Manual therapy: 0min Therapeutic exercise: 15 min ASSESSMENT: pt presents with 10-year history of ankle pain post trauma and multiple surgeri es. She thinks she developed CRPS in 2004. She was diagnosed with CRPS and spent a month in the program at [facility] working through aggressive desensitization and activation which prov ided no lasting benefit. She lives in [place], is going to school, and ambulates [...] She can work with her PT in [place]. CLINICAL PRIORITIES: 1-follow up with Dr [...] [facility] Mailcode: Ch3p [address] [facility], [address] [facility] [address] documented in this encounter Plan of Treatment Not on filedocumented as of this encounter Procedures + +--------+ + + + | Procedure Name | Priori | Date/Time | Associated Diagnosis | Comments | | | ty | | | | + +--------+ + + + | [place] THERAPEUTIC | Routin | 02/16/2012 | CRPS (complex | | | EXERCISES | e | 3:34 PM | regional pain | | | | | PDT | syndrome), lower | | | | | | limb | | + +--------+ + + + | [place] PHYS THERAPY | Routin | 02/16/2012 | [...]
--- OUTSIDE RECORDS SUMMARY | ~2020-05-29 | XMS | Encounter Summary ---
Demographics + + + | Address | [address] | | | [place] [address] | + + + | Home Phone [...] Providers + +------+ + | Care Manager Sharepoint Name | Role | Phone | + +------+ + | Justo Vazquez MD | PCP | | + +------+ + Encounter Details +--------+ + + + + | Date | Type | Department | Care Team | Description | +--------+ + + + + | 08/03/ | Telephone | [facility] | Alex Sanchez, | | | 2018 | | Pain Center at | ,PhD [address] | | | | | [facility] | [address] | | | | | [address] | [place], [place] | | | | | [place] for [facility] | [address] | | | | | and Healing, | [phone] | | | | | | | | | | | Floor [place], [place] | | | | | | [address] | | | | | | [phone] | | | +--------+ + + + [...]
--- OUTSIDE RECORDS SUMMARY | ~2020-05-29 | XMS | Encounter Summary ---
Demographics + + + | Address | [address] | | | [place] [address] | + + + | Home Phone [...] Team Providers + +------+ + | Care Ladle Puller Name | Role | Phone | [...] + + | 12/26/ | Refill | [facility] | Alex Sanchez, | Refill Request | | 2019 | | Pain Center at | ,PhD [address] [facility] | | | | | [facility] | [address] | | | | | [address] | [place], [place] | | | | | [facility] | [address] | | | | | and Martina, | [phone] | | | | | [facility] | | | | | | Floor [place], [place] | | | | | | [address] | | | | | | [phone] | | | +--------+--------+ + + + [...]
--- OUTSIDE RECORDS SUMMARY | ~2020-05-29 | XMS | Encounter Summary ---
Demographics + + + | Address | [address] | | | [place] [address] | + + + | Home Phone [...] Providers + +------+ + | Care Physical Therapy Manager Name | Role | Phone | [...] | Diagnoses | Beulah | Edu Pt Bonding Machine Tender | | | | Therapy | CRPS | Janak Martinez MD | [address] | | | | | (complex | [address] | | | | | regional | [address] | Mailcode: | | | | | pain | Mailstop | [facility] | | | | | syndrome), | [id number] | for Health | | | | | lower limb | [place], [place] | and Healing, | | | | | Gait | [address] | [address] | | | | | disturbance | Phone: | [place], [place] | | | | | Muscle pain | [phone] | [address] | | | | | Procedures | Fax: | Phone: | | | | | PHYSICAL | [phone] | [phone] | | | | | THERAPY | [...] | | | | [place] | [place] [address] | syndrome), lower | | | | [address] | [phone] | limb (Primary Dx) | | | | [facility] | | | | | | and Healing, | | | | | | Building 1, | | | | | | Floor [place], [place] | | | | | | [address] | | | | | | [phone] | | | +--------+---------+ + + + [...] might be different f rom the original. [id number] BRODY FARAH Date of : 1990 Start of care: 02/14/2012 Date of onset: 02/14/2012 Referring/Attending Practitioner: Janak Riojas MD . Primary/Referral Diagnosis/ICD-9: 355.71B CRPS (complex regional pain syndrome), lower limb Insurance: Payor: [facility] [employer] [facility] Plan: BCBS OUT OF STATE Product Type: PP O Service period from: 02/14/2012 to: 08/12/2012 Number visits used/authorized: 12/26 [facility] PHYSICAL THERAPY PROGRESS NOTE SUBJECTIVE: Age: 21 y.o. Sex: female Chief complaint: No chief complaint on file. 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 She is doing much better ov [facility], possibly because she finished school and so has less stress. She stopped using crutch es in early April (18 days ago) which is less stressful. Now she is working at [employer] 2-3 hours per week, and spends a [...] sometimes pain meds. Social History: lives in [facility], 22 years old, not working currently, [...] concerns about therapy: she lives in [facility]. She is r equesting family members [...] in their status. Guillermo Sanon MSPBren [facility] Outpatient Rehabilitation Services Mailcode: Ch3p [address] [facility], 1st Floor [facility] [address] documented in this encounter Plan of Treatment Not on filedocumented as of this encounter Procedures + +--------+ + + + | Procedure Name | Priori | Date/Time | Associated Diagnosis | Comments | | | ty | | | | + +--------+ + + + | NC THERAPEUTIC | Routin | 05/03/2012 | CRPS [...]
--- OUTSIDE RECORDS SUMMARY | ~2020-05-29 | XMS | Encounter Summary ---
Demographics + + + | Address | [address] | | | [place] [address] | + + + | Home Phone [...] Providers + +------+ + | Care Front End Software Developer Name | Role | Phone | [...] 2016 | | Pain Center at | MANAGER FOOD SAFETY [address] | | | | | [facility] | [place], [place] | | | | | [address] | [address] | | | | | [facility] | [phone] | | | | | and Healing, | | | | | | [facility] | | | | | | [place], [place] | | | | | | [address] | | | | | | [phone] | | | +--------+ + + + [...]
--- OUTSIDE RECORDS SUMMARY | ~2020-05-29 | XMS | Encounter Summary ---
Demographics + + + | Address | [address] | | | [place] [address] | + + + | Home Phone [...] Providers + +------+ + | Care Law Office Assistant Name | Role | Phone | [...] | | | 2019 | Event | [facility] | MD Juan [address] | | | | | and Healing Surgery | [address] | | | | | Center Admitting | [place], [place] | | | | | Desk Located on the | [address] | | | | | 4th floor [address] | [phone] | | | | | [address], | | | | | | [place] [address] | Arben Vaelrio MD | | | | | | [address] | | | | | | [address] | | | | | | [place], [place] | | | | | | [address] | | | | | | [phone] | | | | | | | [...]
--- OUTSIDE RECORDS SUMMARY | ~2020-05-29 | XMS | Encounter Summary ---
Demographics + + + | Address | [address] | | | [place] [address] | + + + | Home Phone [...] Providers + +------+ + | Care Physician Intensivist Name | Role | Phone | + [...] | | 2017 | | Center at [facility] [address] | MD Melissa | Marker instructions) | | | | [address] [facility] | | | | | | for Health and | | | | | | Healing, Building 2 | | | | | | [place], [place] | | | | | | [address] | | | | | | [phone] | | | +--------+ + + + [...]
--- OUTSIDE RECORDS SUMMARY | ~2020-05-29 | XMS | Encounter Summary ---
Demographics + + + | Address | [address] | | | [place] [address] | + + + | Home Phone [...] Providers + +------+ + | Care Electric Screw Driver Operator Name | Role | Phone | + +------+ + | Justo Vazquez MD | PCP | | + +------+ + Encounter Details +--------+ + + + + | Date | Type | Department | Care Team | Description | +--------+ + + + + | 08/07/ | Telephone | [facility] | Alex Sanchez, | | | 2019 | | Pain Center at | ,PhD [address] | | | | | [facility] | [address] | | | | | [address] | [place], [place] | | | | | [place] for [facility] | [address] | | | | | and Healing, | [phone] | | | | | | | | | | | Floor [place], [place] | | | | | | [address] | | | | | | [phone] | | | +--------+ + + + [...]
--- OUTSIDE RECORDS SUMMARY | ~2020-05-29 | XMS | Encounter Summary ---
Demographics + + + | Address | [address] | | | [place] [address] | + + + | Home Phone [...] Providers + +------+ + | Care Business Services Coordinator Name | Role | Phone | [...] | | Pain Center at | ,PhD [address] [facility] | follow-up | | | | [facility] | [address] | | | | | [address] | [place], [place] | | | | | [facility] | [address] | | | | | and Martina, | [phone] | | | | | Building | | | | | | Floor [place], [place] | | | | | | [address] | | | | | | [phone] | | | +--------+ + + + [...]
--- OUTSIDE RECORDS SUMMARY | ~2020-05-29 | XMS | Encounter Summary ---
Demographics + + + | Address | [address] | | | [place] [address] | + + + | Home Phone [...] Team Providers + +------+ + | Care Dining Room Cashier Name | Role | Phone | [...] S W | | | | | [facility] | [address] | | | | | [address] | [place], [place] | | | | | [facility] | [address] | | | | | and Martina, | [phone] | | | | | [facility] | | | | | | Floor [place], [place] | | | | | | [address] | | | | | | [phone] | | | +--------+--------+ + + + [...]
--- OUTSIDE RECORDS SUMMARY | ~2020-05-29 | XMS | Encounter Summary ---
Demographics + + + | Address | [address] | | | [place] [address] | + + + | Home Phone | | + + + | Preferred Language | Unknown | + + + | Marital Status | Single | + + + | Yarsanism Affiliation | [id number] | + + + | Race | Unknown | + + + | Ethnic Group | Unknown | + + + Author + + + | Author | [facility] | | | and Marvinana | + + + | Organization | [facility] | | | and [...] [place] | | | | | [address] | | + + + + + | Bryant Farah | ECON | Unknown | | + + + + + Care Team Providers + +------+ + | Care Project Development Leader Name | Role | Phone | + +------+ + PCP | Unavailable | + +------+ + Encounter Details +--------+ + + + + | Date | Type | Department | Care Team | Description | +--------+ + + + + | 03/16/ | Hospital | [facility] | Conversion | Back pain | | 2013 | Encounter | [address] | Transaction, | | | | | [address] | Provider Unknown | | | | | [place], [place] | [phone] | | | | | [address] | | | | | | [phone] | | | +--------+ + + + [...]
--- OUTSIDE RECORDS SUMMARY | ~2020-05-29 | XMS | Encounter Summary ---
Demographics + + + | Address | [address] | | | [place] [address] | + + + | Home Phone [...] + | Organization | [facility] | | | and [...] [place] | | | | | [address] | | + + + + + | Bryatn Farah | ECON | Unknown | | + + + + + Care Team Providers + +------+ + | Care Finance Officer Name | Role | Phone | + +------+ + PCP | Unavailable | + +------+ + Encounter Details +--------+ + + + + | Date | Type | Department | Care Team | Description | +--------+ + + + + | 03/16/ | Hospital | [facility] GENER[facility] IP | Conversion | Back pain | | 2013 | Encounter | [address]VERSION [address] | Transaction, | | | | | [address] | Provider Unknown | | | | | [place], [place] | [phone] | | | | | [address] | | | | | | [phone] | | | +--------+ + + + [...]
--- OUTSIDE RECORDS SUMMARY | ~2020-05-29 | XMS | Encounter Summary ---
Demographics + + + | Address | [address] | | | [place] [address] | + + + | Home Phone [...] Team Providers + +------+ + | Care Grip Name | Role | Phone | + +------+ + | Justo Vazquez MD | PCP | | + +------+ + Encounter Details +--------+ + + + + | Date | Type | Department | Care Team | Description | +--------+ + + + + | 12/28/ | Telephone | [facility] | Ilene Bright, | | | 2019 | | Pain Center at | PROCESS CONTROL OPERATOR [address] | | | | | [facility] | [place], [place] | | | | | [address] | [address] | | | | | [place] for [facility] | [phone] | | | | | and Healing, | | | | | | | | | | | | Floor [place], [place] | | | | | | [address] | | | | | | [phone] | | | +--------+ + + + [...]
--- OUTSIDE RECORDS SUMMARY | ~2020-05-29 | XMS | Encounter Summary ---
Demographics + + + | Address | [address] | | | [place] [address] | + + + | Home Phone [...] Team Providers + +------+ + | Care Sanitary Plumber Name | Role | Phone | + [...] | | | | | Constipation | [address] | | | | | , | [address] | [place] for | | | | | unspecified | [address] | Health and | | | | | constipation | [place], [place] | Healing, | | | | | type | [address] | [address] | | | | | Abdominal | | [place], [place] | | | | | pain, | | [address] | | | | | unspecified | | Phone: | | | | | location | | [phone] | | | | | Procedures | | Fax: | | | | | CONSULT TO | | [phone] | | | | | GI PROCEDURE [...] | | 2015 | | Center at [facility] [address] | MD Melissa | Vomiting (Bile) | | | | [address] | | | | | | for Health and | | | | | | Healing, Building 2 | | | | | | [place], [place] | | | | | | [address] | | | | | | [phone] | | | +--------+ + + + [...]
--- OUTSIDE RECORDS SUMMARY | ~2020-05-29 | XMS | Encounter Summary ---
Demographics + + + | Address | [address] | | | [place] [address] | + + + | Home Phone [...] Team Providers + +------+ + | Care Hogshead Stock Clerk Name | Role | Phone | [...] | 2015 | | Center at [facility] [address] Junior Torres MD | Treatment Planning | | | | [address] [place] | | | | | | for Health and | | | | | | [facility] 2 | | | | | | [place], [place] | | | | | | [address] | | | | | | [phone] | | | +--------+ + + + [...]
--- OUTSIDE RECORDS SUMMARY | ~2020-05-29 | XMS | Encounter Summary ---
Demographics + + + | Address | [address] | | | [place] [address] | + + + | Home Phone [...] Team Providers + +------+ + | Care Language Interpreter Name | Role | Phone | + [...] | (ortho question) | | | | [facility] | [facility] | | | | | [address] | [place], [place] | | | | | [facility] | [address] | | | | | and Healing, | [phone] | | | | | | | | | | | Floor [place], [place] | | | | | | [address] | | | | | | [phone] | | | +--------+ + + + [...]
--- OUTSIDE RECORDS SUMMARY | ~2020-05-29 | XMS | Encounter Summary ---
Demographics + + + | Address | [address] | | | [place] [address] | + + + | Home Phone [...] Team Providers + +------+ + | Care Intermediate Manager Name | Role | Phone | + +------+ + | Justo Vazquez MD | PCP | | + +------+ + Encounter Details +--------+ + + + + | Date | Type | Department | Care Team | Description | +--------+ + + + + | 05/12/ | MyChart | Pain Center at [facility] | Ewa Melchor, | RE: Schedule change | | 2017 | Encounter | [address] | FUR GLAZER [address] | | | | | [place] for [facility] | [address] | | | | | and Healing, | [place] [address] | | | | | | [phone] | | | | | Floor [place], [place] | | | | | | [address] | | | | | | [phone] | | | +--------+ + + + [...]
--- OUTSIDE RECORDS SUMMARY | ~2020-05-29 | XMS | Encounter Summary ---
Demographics + + + | Address | [address] | | | [place] [address] | + + + | Home Phone [...] Team Providers + +------+ + | Care Geothermal Production Manager Name | Role | Phone [...] | | | | | syndrome | [facility] | [facility] | | | | | type [address] of | [address] | Rd [place], | | | | | left lower | [facility] [place] | [place] | | | | | extremity | [address] | [address] | | | | | Procedures | Phone: | Phone: | | | | | REQUEST TO | [phone] | [phone] | | | | | SURGERY | Fax: | Fax: | | | | | [facility] [place] | [phone] | [phone] | +--------+---------+ + + + + Reason [...] | | | | | Procedures | [place], [place] | Joel [place], | | | | | CONSULT TO | [address] | [place] | | | | | PAIN | | [address] | | | | | MANAGEMENT | | Phone: | | | | | | | [phone] | | | | | | | Fax: | | | | | | | [phone] | +--------+--------+ + + + + Encounter Details +--------+---------+ + + + | Date | Type | Department | Care Team | Description | +--------+---------+ + + + | 10/09/ | Office | [facility] | Alex Sanchez, | Complex regional | | 2018 | Visit | Pain Center at | ,PhD [address] [facility] [address] | pain syndrome type 1 | | | | [facility] | [facility] [address] | of left lower | | | | [address] | [place], [place] | extremity (Primary | | | | [place] for [facility] | [address] | Dx) | | | | and Healing, | [phone] | | | | | | | | | | | Floor [place], [place] | | | | | | [address] | | | | | | [phone] | | | +--------+---------+ + + + [...] with an external order to see a refractory specialist today. Please p resent this referral [...] insurance. PRE-PROCEDURE INSTRUCTIONS 1. Please bring a mail truck driver with you as we may [...] thinning medications (other than aspirin), [facility] doctor who is doing your procedure will communicate with the provider who is prescribing y our anticoagulant therapy. If you do not have clear instructions on what to do with your an ticoagulant by 2 weeks before your procedure, please contact [facility] to cl arify your instructions. The phone number for questions or concerns is [phone]. documented in this encounter Progress Notes Alex [...] notes. Alex Sanchez MD,PhD [facility] signed by Alex Sanchez MD,PhD at 09/15 [...] Person MD - 10/09/2018 10:00 AM PST [facility] Center Return Visit Date: 10/09/2018 Chief Complaint Patient presents with Back pain Low back pain Pain in left leg Knee pain Ankle pain Foot pain History of Present Illness: Tracie Farah is a 28 year old female, whose last appoi ntment at the [facility] [place] was September 28, 2018, for a clinic visit with Yun Frey NP. At that time our plans were: Recommendations/Plan: 1. Recommend to keep her appointment with Dr. Sanchez on 10/02/2018. 2. To contact the [facility] rep if she has any further question [...] She went into the emergency room in [place] where they rem cady the leads. She [...] which she suspects also used dissolvable stitches. ECOLOGICAL TECHNICAL OFFICER Brief Pain Inventory: (ten= worst possible [...] Hemroidectomy Trial spinal cord stimulator leads 08/02/2012 [facility], Surgeon: Janak Riojas MD Cholecystectomy Appendectomy [...] a light load. Has been working at [employer], can' t work on [employer]. Has roommates. Allergies Allergen Reactions Morphine Anaphylaxis [...] the vein (IV) every eight hour s. 1714-8793-60 COMPOUNDED MED RX CONTROLLED (SEE ADMIN INSTRUCT [...] by physician. Concentration is 150mg/mL. Compounded by [employer] ) KETOROLAC IM Inject into the muscle [...] (IV) every twel ve hours as needed. 5398-7210-55 ONDANSETRON 4 MG DISINTEGRATING TABLET Dissolve 1 tablet in mouth every twelve hours as nee ded. PANTOPRAZOLE 40 MG TABLET,DELAYED RELEASE Take 40 mg by mouth once daily. PEG 3350-ELECTROLYTES 236 GRAM-22.74 GRAM-6.74 GRAM-5.86 GRAM SOLUTION Take as directed by [facility]- 2 gallon bowel prep POLYETHYLENE [...] and summary of old medical records (source: [employer]), as summarized in the body of the [...] Key. Arben Valerio MD PAIN CENTER AT [facility] [address]TH [address] [facility] Mail Code: Ch15p [place] [address] [phone] signed by Alex Sanchez MD,PhD at 10/10/2018 9:27 AM [facility] umented in this encounter Plan of Treatment Not on filedocumented as of this encounter Visit Diagnoses + + | Diagnosis | + + | Complex regional pain syndrome type 1 of left lower extremity - Primary | + + documented in this encounter
--- OUTSIDE RECORDS SUMMARY | ~2020-05-29 | XMS | Encounter Summary ---
Demographics + + + | Address | [address] | | | [place] [address] | + + + | Home Phone [...] Team Providers + +------+ + | Care Consignee Name | Role | Phone | + [...] | | | | syndrome | [facility] | | | | | type 1 of | Rd | Rd [place], | | | | | left lower | [facility], [place] | [place] | | | | | extremity | [address] | [address] | | | | | Procedures | Phone: | Phone: | | | | | REQUEST TO | [phone] | [phone] | | | | | SURGERY | Fax: | Fax: | | | | | BACK TENDER [employer] | [phone] | [phone] | +--------+---------+ + + + + Physical [...] | | regional | ,PhD [address] | [facility] | | | | | pain | [facility] | [address] | | | | | syndrome | [facility] | [place] | | | | | type 1 of | Rd | [place] | | | | | left lower | [place], [place] | [address] | | | | | extremity | [address] | Phone: | | | | | Procedures | Phone: | [phone] | | | | | PHYSICAL | [phone] | Fax: | | | | | THERAPY | Fax: | [phone] | | | | | REFERRAL | [phone] | | +--------+--------+ + + + + [...] | | | | | Procedures | [place], [place] | Rd [place], | | | | | CONSULT TO | [address] | [place] | | | | | PAIN | | [address] | | | | | MANAGEMENT | | Phone: | | | | | | | [phone] | | | | | | | Fax: | | | | | | | [phone] | +--------+--------+ + + + + Encounter Details +--------+---------+ + + + | Date | Type | Department | Care Team | Description | +--------+---------+ + + + | 06/12/ | Office | [facility] | Alex Sanchez, | Complex regional | | 2018 | Visit | Pain Center at | ,PhD [address] [facility] | pain syndrome type 1 | | | | [facility] | [facility] [address] | of left lower | | | | [address] | [place], [place] | extremity (Primary | | | | Center for Health | [address] | Dx) | | | | and Healing, | [phone] | | | | | | | | | | | Floor [place], [place] | | | | | | [address] | | | | | | [phone] | | | +--------+---------+ + + + [...] in the future, please contact me via Gtxh to request an order to schedule. The procedure you discussed with your doctor is called: SCS DRG TRIAL LUMBAR [facility]. Please make sure this is scheduled with the Dog And Cat Food Cook. PRE-PROCEDURE INSTRUCTIONS 1. Please bring a inventory associate and driver with you as we may give you medications that impair your ability to drive. This is necessary even if you do not receive sedation. You may take a taxi or ri [employer] if you are accompanied by a responsible [...] phone number for questions or concerns is [phone]. documented in this encounter Progress Notes Holly [...] MD,P hD - 06/12/2018 10:00 AM PDT [facility] Center Return Visit Date: 06/12/2018 [...] that this mildly agitated her neck pain. MERCHANDISE EXAMINER Brief Pain Inventory: (ten= worst possible pain [...] Trial spinal cord stimulator leads 08/02/2012 [facility], Surgeon: Janak Riojas MD Cholecystectomy [...] History Social History Narrative Single. Goes to [employer] with a light load. Has been working at [employer], can' t work on [employer]. Has roommates. Allergies Allergen Reactions Morphine Anaphylaxis [...] by physician. Concentration is 150mg/mL. Compounded by [facility] ) KETOROLAC IM Inject into the [...] GRAM SOLUTION Take as directed by [facility]- 2 gallon bowel prep POLYETHYLENE [...] and summary of old medical records (source: [employer]), as summarized in the body of the [...] to send me a mess age via Gtxh to request referrals to acupuncture and massage [...] by Sonia Key. Alex Sanchez MD PhD Edge Trimmer Mechanic Anesthesiology and Pain Management [facility] documented in t his encounter Plan [...]
--- OUTSIDE RECORDS SUMMARY | ~2020-05-29 | XMS | Encounter Summary ---
Demographics + + + | Address | [address] | | | [place] [address] | + + + | Home Phone [...] Providers + +------+ + | Care Labor Law Professor Name | Role | Phone | [...] Pharmacy | | | | | | [address] | | | | | | [place], [place] | | | | | | [address] | | | | | | [phone] | | | +--------+ + + + [...]
--- OUTSIDE RECORDS SUMMARY | ~2020-05-29 | XMS | Encounter Summary ---
Demographics + + + | Address | [address] | | | [place] [address] | + + + | Home Phone [...] | | | | regional | ,PhD 4668 | | | | | | pain | [address] | | | | | | syndrome | [address] | | | | | | type 1 of | Rd | | | | | | left lower | [place], [place] | | | | | | extremity | [address] | | | | | | Procedures | Phone: | | | | | | CONSULT TO | [phone] | | | | | | ORTHOPEDICS | Fax: | | | | | | AND | [phone] | | | | | | REHABILITATI | | | | | | | ON | | | +--------+--------+ + + + + Encounter Details +--------+ + + + + | Date | Type | Department | Care Team | Description | +--------+ + + + + | 06/08/ | Medicare Interviewer | [facility] | Alex Sanchez, | Complex regional | | 2019 | | Pain Center at | ,PhD [address] [facility] | pain syndrome type 1 | | | | [facility] | [address] | of left lower | | | | [address] | [place], [place] | extremity (Primary | | | | Center for Health | [address] | Dx) | | | | and Healing, | [phone] | | | | | | | | | | | Floor [place], [place] | | | | | | [address] | | | | | | [phone] | | | +--------+ + + + [...]
--- OUTSIDE RECORDS SUMMARY | ~2020-05-29 | XMS | Encounter Summary ---
Demographics + + + | Address | [address] | | | [place] [address] | + + + | Home Phone [...] Team Providers + +------+ + | Care Probate Clerk Name | Role | Phone | [...] | Diagnoses | Beulah | Edu Pt Homebirth Midwife | | | | Therapy | CRPS | Janak Martinez MD | Chh1 [address] | | | | | (complex | [address] | | | | | regional | [address] | Mailcode: | | | | | pain | Mailstop | [facility] | | | | | syndrome), | [address] | for Health | | | | | lower limb | [place], [place] | and Healing, | | | | | Gait | [address] | Building 1 | | | | | disturbance | Phone: | [place], [place] | | | | | Muscle pain | [phone] | [address] | | | | | Procedures | Fax: | Phone: | | | | | PHYSICAL | [phone] | [phone] | | | | | THERAPY | [...] | | | | [address] | [place] [address] | syndrome), lower | | | | [address] | [phone] | limb (Primary Dx) | | | | [facility] | | | | | | and Healing, | | | | | | Building 1, | | | | | | Floor [place], [place] | | | | | | [address] | | | | | | [phone] | | | +--------+---------+ + + + [...] might be different f rom the original. [id number] BRODY FARAH Date of : 1990 Start of care: 02/14/2012 Date of onset: 02/14/2012 Referring/Attending Practitioner: Janak Riojas MD . Primary/Referral Diagnosis/ICD-9: 355.71B CRPS (complex regional pain syndrome), lower limb Insurance: [facility] [employer] [facility] Plan: BCBS OUT OF STATE Product Type: PP O Service period from: 02/14/2012 to: 08/12/2012 Number visits used/authorized: 03/25 [facility] PHYSICAL THERAPY PROGRESS NOTE SUBJECTIVE: Age: 21 [...] any change in their status. Guillermo Sanon [facility] Outpatient Rehabilitation Services Mailcode: Ch3p 3094 [facility], [address] [place] [address] documented in this encounter Plan of Treatment Not on filedocumented as of this encounter Procedures + +--------+ + + + | Procedure Name | Priori | Date/Time | Associated Diagnosis | Comments | | | ty | | | | + +--------+ + + + | DC MANUAL THER | Routin | 06/05/2012 | CRPS (complex | | | TECH,1+REGIONS,EA 15 | e | 5:15 PM | regional pain | | | MIN | | PDT | syndrome), lower | | | | | | limb | | + +--------+ + + + | DC THERAPEUTIC | Routin | 06/05/2012 | CRPS [...]
--- OUTSIDE RECORDS SUMMARY | ~2020-05-29 | XMS | Encounter Summary ---
Demographics + + + | Address | [address] | | | [place] [address] | + + + | Home Phone [...] Team Providers + +------+ + | Care Midwife Name | Role | Phone | + [...] 08/11/ | Documentati | KEVIN YANEZ at [facility] | Lab, Gi Procedure | Medical Records | | 2015 | on | [address] | | Review | | | | [address] [facility] | | | | | | Health and Healing, | | | | | | Building 2 | | | | | | [place], [place] | | | | | | [address] | | | | | | [phone] | | | +--------+ + + + [...]
--- OUTSIDE RECORDS SUMMARY | ~2020-05-29 | XMS | Encounter Summary ---
Demographics + + + | Address | [address] | | | [place] [address] | + + + | Home Phone [...] Team Providers + +------+ + | Care Construction Checker Name | Role | Phone | [...] (discuss | | | | [facility] | [address] | ortho appointment) | | | | [address] | [place], [place] | | | | | [facility] | [address] | | | | | and Healing, | [phone] | | | | | Building | | | | | | Floor [facility] [place] | | | | | | [address] | | | | | | [phone] | | | +--------+ + + + [...]
--- OUTSIDE RECORDS SUMMARY | ~2020-05-29 | XMS | Encounter Summary ---
Demographics + + + | Address | [address] | | | [place] [address] | + + + | Home Phone [...] | [facility] | Aleta Rebollar MD 7437 | Nausea | | 2018 | | Pain Center at | [address] | | | | | [facility][Note 3] | [place], [place] | | | | | [address] | [address] | | | | | [place] for Health | [phone] | | | | | and Healing, | | | | | | Building | | | | | | [place], [place] | | | | | | [address] | | | | | | [phone] | | | +--------+ + + + [...]
--- OUTSIDE RECORDS SUMMARY | ~2020-05-29 | XMS | Encounter Summary ---
Demographics + + + | Address | [address] | | | [place] [address] | + + + | Home Phone [...] + +------+ + | Care Communications Department Chair Name | Role | Phone | + +------+ + | Allegra Chaudhary | PCP | | + +------+ + Encounter Details +--------+ + + + + | Date | Type | Department | Care Team | Description | +--------+ + + + + | 10/21/ | Telephone | [facility] | Antony Beltre, | | | 2014 | | [place] [address] [address] | [address] | | | | | [address] [facility] | [place] [address] | | | | | for Health and | [phone] | | | | | [facility], [facility] 2 | | | | | | [place], [place] | | | | | | [address] | | | | | | [phone] | | | +--------+ + + + [...]
--- OUTSIDE RECORDS SUMMARY | ~2020-05-29 | XMS | Encounter Summary ---
Demographics + + + | Address | [address] | | | [place] [address] | + + + | Home Phone [...] Team Providers + +------+ + | Care Snap Attacher Name | Role | Phone | + [...] 2017 | | Pain Center at | CRANBERRY GROWER [address] | | | | | [facility] | [place], [place] | | | | | [address] | [address] | | | | | [facility] | [phone] | | | | | and Healing, | | | | | | Building | | | | | | [facility] [place] | | | | | | [address] | | | | | | [phone] | | | +--------+ + + + [...]
--- OUTSIDE RECORDS SUMMARY | ~2020-05-29 | XMS | Encounter Summary ---
Demographics + + + | Address | [address] | | | [place] [address] | + + + | Home Phone [...] Team Providers + +------+ + | Care Restaurant Crew Person Name | Role | Phone | [...] CRPS | Janak Martinez MD | Chh1 [address] | | | | Management | (complex | [address] | | | | | regional | [address] | Center for | | | | | pain | Mailstop | Health and | | | | | syndrome), | [id number] | Healing, | | | | | lower limb | [place], [place] | Building | | | | | Gait | [address] | 1,15th Floor | | | | | disturbance | Phone: | [place], [place] | | | | | Muscle pain | [phone] | [address] | | | | | Procedures | Fax: | Phone: | | | | | CONSULT TO | [phone] | [phone] | | | | | PAIN CENTER | | Fax: | | | | | | | [phone] | +--------+--------+ + + + + Encounter Details +--------+---------+ + + + | Date | Type | Department | Care Team | Description | +--------+---------+ + + + | 03/20/ | Office | Pain Center at [facility] | Shelia Feldman, PhD | Unspecified | | 2011 | Visit | [address] | | adjustment reaction | | | | Center for Health | | (Primary Dx) | | | | and Healing, | | | | | | Building | | | | | | Floor [place], [place] | | | | | | [address] | | | | | | [phone] | | | +--------+---------+ + + + [...] [facility] Name: Tracie Farah MR#: [id number] Date of : 1990 Date: March 20, 2012 Attending Psychologist: SHELIA FELDMAN, PHD CPT: 06344 Duration: 60min Psych: 309.0 Pain: 355.71 Tracie arrived on time for today's appointment, casually dressed and neatly groomed. Affect was appropriate, mood normothymic. She drove herself today and used crutches. She stated t hat she was doing "better", mainly because she has returned to work at [employer]. She is wo rking about 2 hour shifts; her pain is flared during work but she feels good because she is engaging in life and also is earning money. She reported that she has been cutting down on her pain medication because she wants to improve cognition (currently taking 1-2 daily at [facility] for sleep). She notes that [...] discretion, not currently planned. SHELIA FELDMAN, PHD Cartographic Engineer Licensed Clinical Psychologist [facility] [place] Department of Anesthesiology & Perioperative Medicine [facility] [address] [place], [place] [id number] Historical Information: Introduction: Tracie Farah is a 21-year-old woman with >5 year hx of CRPS, R LE.S ocial & Psychiatric History: Tracie Farah lives in [place] in a shared apartment space. She has struggled wi th CRPS for at least 5 years; original injury to her foot was in 2001. In summer 2010 she h ad inpt pain tx at [facility] with limited fpc benefit. Recent flare; she [...] She learned some pain management techniques at [facility], mainly DB and PMR, which she does [...] Travel is a barrier; she lives in [place] DSM-IV Diagnoses/Impressions: [place] I: 1. 309.9 Unspecified Adjustment Reaction 2. 780.50 Sleep Disturbance [place] II: Deferred. [place] III: Patient Active Problem List Diagnoses CRPS (complex regional pain syndrome), lower limb Gait disturbance Muscle pain Adjustment reaction [place] IV: CRPS pain, pain related debility;difficulty attending class, working; family stres s; stalker ex-bf [place] V: Global Assessment of Functioning = 75 [...] me should questions arise. SHELIA FELDMAN, PHD Cartographic Engineer Licensed Clinical Psychologist [facility] [place] Department of Anesthesiology & Perioperative Medicine [facility] [address] [place] [address] documented in this enc ounter Plan of Treatment Not on filedocumented as of this encounter Visit Diagnoses + + | Diagnosis | + + | Unspecified adjustment reaction - Primary | + + documented in this encounter
--- OUTSIDE RECORDS SUMMARY | ~2020-05-29 | XMS | Encounter Summary ---
Demographics + + + | Address | [address] | | | [place] [address] [...] Providers + +------+ + | Care Supervisor Warping Department Name | Role | Phone | + +------+ + | Justo Vazquez MD | PCP | | + +------+ + Encounter Details +--------+ + + + + | Date | Type | Department | Care Team | Description | +--------+ + + + + | 12/07/ | Telephone | [facility] | Alex Sanchez, | | | 2019 | | Pain Center at | ,PhD [address] | | | | | [facility] | [address] | | | | | [address] | [place], [place] | | | | | [place] [facility] | [address] | | | | | and Healing, | [phone] | | | | | | | | | | | Floor [place], [place] | | | | | | [address] | | | | | | [phone] | | | +--------+ + + + [...]
--- OUTSIDE RECORDS SUMMARY | ~2020-05-29 | XMS | Encounter Summary ---
Demographics + + + | Address | [address] | | | [place] [address] | + + + | Home Phone [...] Team Providers + +------+ + | Care Distance Learning Administrator Name | Role | Phone | [...] Rd | | | | | | [place], [place] | | | | | | [address] | | | +--------+ + + + [...]
--- OUTSIDE RECORDS SUMMARY | ~2020-05-29 | XMS | Encounter Summary ---
Demographics + + + | Address | [address] | | | [place] [address] [...] + +------+ + | Care Senior Oracle Applications Developer Name | Role | Phone | [...] | | | 2015 | | Department [address] | [address] [facility] | | | | | [address] | [address] | | | | | [facility] | [place], [place] | | | | | [place], [place] | [address] | | | | | [address] | [phone] | | | | | [phone] | | | | | | | [...] about "Gastroparesis: Care Instructions", log into your Well[employer] account at [email or web address]. You can enter M106 in the TourRadar" search box. Not on Well[employer]? Review the Wellframe section of your After Visit Summary for directions on ho w to sign up. [id number] [employer]. Care instructions adapted under license by [facility] [employer] [place]. This care instruction is for use with your licensed healthcar e professional. If you have questions about a medical condition or this instruction, always ask your healthcare professional. [employer] disclaims any warranty or liabili ty for your use of this information. Content Version: 11.0.998004; Current as of: October 03, 2015 documented [...] | | | LABORATORY | | | CHILEAN | | | SERVICES, | | | [...] | + + + + + | [facility] | [address] | [place] [address] | | | SERVICES, CORE | [address] [...] + + + + + + | [facility] | 392 | ms | [facility] DEPT [...] DEPT OF | [address] | [place], [place] | | | CARDIOLOGY | [address] | [address] | | + + + + + [...] HOSPITAL LABORATORY | [address] | [place] [address] | | | SERVICES, CORE | [address] [...] [facility] | [address] | [place] [address] | | | SERVICES, LILLIAN | [address] [...] KEVIN SHAH | [address] | [place] [address] | | | SERVICES, CORE | PARK [...] | + + + + + | [facility] | [address] | [place] [address] | | | [facility] | [address] | | | + [...] organisms may result in clinically misleading | [place] | | information due to the low numbers and /or mixture of organisms | | | present. Recollection is suggested if clinically indicated. | | + + + + + + + + | Performing | Address | City/State/Zipcode | Phone Number | | Organization | | | | + + + + + | [place] [facility] | [address] | [place] [address] | | | [place] | | | | + + + [...] [facility] | [address] | [place] [address] | | | SERVICES, CORE | PARK [...] HOSPITAL LABORATORY | [address] | [place] [address] | | | SERVICES, CORE | PARK [...] | + + + + + | [facility] | [address] | [place] [address] | | | SERVICES, CORE | [address] [...] | | | LABORATORY | | | CHILEAN | | | SERVICES, | | | [...] | + + + + + | [facility] | [address] | [place] [address] | | | SERVICES, CORE | [address] | | | + + + + + ED INFORMATION EXCHANGE (08/08/2016 12:21 PM PDT) + + + + + + | Component | Value | Ref Range | Performed | Pathologist | | | | | At | Signature | + + + + + + | [facility] | [id number] | | COLLECTIVE | | | | [id number] | | MEDICAL | | | | [...] | | | 08/08/2016 12:21 [facility] and | | | [facility] [place] Emergency [address]. abd pain | | | 08/04/2016 03:50 [facility] | | | [place] Emergency ABD PAIN,VOMITING 06/26/2016 22:44 | | | [facility] [place] | | | Emergency [...] drug therapy 06/22/2016 17:35 | | | [facility] | | | Emergency -abd pain, "I have gastroparesis", since , seen | | | | | | at St | | | [facility] yesterday. has been to the er | | | | | | several times | | | | | | -Abdominal Pain | | | | | | -Gastroparesis 06/19/2016 | | | 04:51 [facility] [place] 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 | | | [place] Emergency [...] Location ------ --------- 1 | | | [facility] 1 | | | [facility] 8 [facility] 10 | | | Total Note: [...] COLLECTIVE MEDICAL | [address] | [place], [place] | [phone] | | TECHNOLOGIES | [address] | [address] | | + + + + + [...]
--- OUTSIDE RECORDS SUMMARY | ~2020-05-29 | XMS | Encounter Summary ---
Demographics + + + | Address | [address] | | | [place] [address] | + + + | Home Phone [...] Providers + +------+ + | Care Media Reporter Name | Role | Phone | + +------+ + | Justo Vazquez MD | PCP | | + +------+ + Encounter Details +--------+ + + + + | Date | Type | Department | Care Team | Description | +--------+ + + + + | 04/23/ | Anesthesia | Pain Center at [facility] | Aleta Rebollar MD 7965 | | | 2019 | Event | [address] | [address] | | | | | [place] for Health | [place], [place] | | | | | and Healing, | [address] | | | | | | [phone] | | | | | Floor [place], [place] | | | | | | [address] | | | | | | [phone] | | | +--------+ + + + [...]
--- OUTSIDE RECORDS SUMMARY | ~2020-05-29 | XMS | Encounter Summary ---
Demographics + + + | Address | [address] | | | [place] [address] | + + + | Home Phone [...] Team Providers + +------+ + | Care Reel Assembler Name | Role | Phone | [...] | | | | regional | ,PhD [address]842 | | | | | | pain | [address] | | | | | | syndrome | [address] | | | | | | type [address] of | Rd | | | | | | left lower | [place], [place] | | | | | | extremity | [address] | | | | | | Procedures | Phone: | | | | | | PHYSICAL | [phone] | | | | | | THERAPY | Fax: | | | | | | REFERRAL | [phone] | | +--------+--------+ + + + + Encounter Details +--------+ + + + + | Date | Type | Department | Care Team | Description | +--------+ + + + + | 01/22/ | Telephone | [facility] | Alex Sanchez, | | | 2019 | | Pain Center at | ,PhD [address] [facility] | | | | | [facility] | [facility] | | | | | [address] | [place], [place] | | | | | [facility] | [address] | | | | | and [place], | [phone] | | | | | | | | | | | Floor [place], [place] | | | | | | [address] | | | | | | [phone] | | | +--------+ + + + [...]
--- OUTSIDE RECORDS SUMMARY | ~2020-05-29 | XMS | Encounter Summary ---
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 | | | | Therapy | CRPS | Janak Martinez MD | Chh1 [address] | | | | | (complex | [address] | | | | | regional | [address] | Mailcode: | | | | | pain | Mailstop | [facility] | | | | | syndrome), | [id number] | for Health | | | | | lower limb | [place], [place] | and Healing, | | | | | Gait | [address] | Building 1 | | | | | disturbance | Phone: | [place], [place] | | | | | Muscle pain | [phone] | [address] | | | | | Procedures | Fax: | Phone: | | | | | PHYSICAL | [phone] | [phone] | | | | | THERAPY | [...] | | | | [address] | [place] [address] | syndrome), lower | | | | [address] | [phone] | limb (Primary Dx) | | | | [facility] | | | | | | and Healing, | | | | | | Building 1, | | | | | | Floor [place], [place] | | | | | | [address] | | | | | | [phone] | | | +--------+---------+ + + + [...] might be different f rom the original. [id number] BRODY FARAH Date of : 1990 Start of care: 02/14/2012 Date of onset: 02/14/2012 Referring/Attending Practitioner: Janak Riojas MD . Primary/Referral Diagnosis/ICD-9: 355.71B CRPS (complex regional pain syndrome), lower limb Insurance: Payor: [facility] Plan: BCBS OUT OF STATE Product Type: PP O Service period from: 02/14/2012 to: 08/12/2012 Number visits used/authorized: 01/23 [facility] PHYSICAL THERAPY PROGRESS NOTE SUBJECTIVE: Age: 21 y.o. Sex: female Chief complaint: No chief complaint on file. Current: pt has been doing her neck exercises. She is not shaking as much. Her foot hurts t bruno. Now she is working at [employer] 2-3 hours per week, and spends a [...] their status. Guillermo Sanon MSPT [facility] Outpatient Rehabilitation Services Mailcode: Ch3p [address] [facility], [address] [place] [address] documented in this encounter Plan of Treatment Not on filedocumented as of this encounter Procedures + +--------+ + + + | Procedure Name | Priori | Date/Time | Associated Diagnosis | Comments | | | ty | | | | + +--------+ + + + | [place] THERAPEUTIC | Routin | 05/11/2012 | CRPS [...]
--- OUTSIDE RECORDS SUMMARY | ~2020-05-29 | XMS | Encounter Summary ---
Demographics + + + | Address | [address] | | | [place] [address] | + + + | Home Phone [...] Providers + +------+ + | Care Senior Behavioral Scientist Name | Role | Phone | [...] | 2016 | | Center at [facility] [address] | | severe stomach Pain) | | | | [address] [facility] | | | | | | for Health and | | | | | | Healing, Building 2 | | | | | | [place], [place] | | | | | | [address] | | | | | | [phone] | | | +--------+ + + + [...]
--- OUTSIDE RECORDS SUMMARY | ~2020-05-29 | XMS | Encounter Summary ---
Demographics + + + | Address | [address] | | | [place] [address] | + + + | Home Phone [...] Team Providers + +------+ + | Care Hole Digger Truck Driver Name | Role | Phone | + +------+ + | Justo Vazquez MD | PCP | | + +------+ + Encounter Details +--------+ + + + + | Date | Type | Department | Care Team | Description | +--------+ + + + + | 03/18/ | Telephone | [facility] | Kenny Gaspar MD | | | 2017 | | [place] [address] [address] | | | | | | [address] [facility] | | | | | | for Health and | | | | | | [facility], Building 2 | | | | | | [place], [place] | | | | | | [address] | | | | | | [phone] | | | +--------+ + + + [...]
--- OUTSIDE RECORDS SUMMARY | ~2020-05-29 | XMS | Encounter Summary ---
Demographics + + + | Address | [address] | | | [place] [address] | + + + | Home Phone [...] + +------+ + | Care Social Work Program Coordinator Name | Role | Phone | [...] | | [address] [facility] for | [place], [place] | | | | | Health and Healing, | [address] | | | | | | [phone] | | | | | [place], [place] | | | | | | [address] | | | | | | [phone] | | | +--------+ + + + [...]
--- OUTSIDE RECORDS SUMMARY | ~2020-05-29 | XMS | Encounter Summary ---
Demographics + + + | Address | [address] | | | [place] [address] | + + + | Home Phone [...] Team Providers + +------+ + | Care Equities Trader Name | Role | Phone | [...] | | | | regional | ,PhD 3931 | | | | | | pain | [address] | | | | | | syndrome | [address] | | | | | | type [address] of | Rd | | | | | | left lower | [place], [place] | | | | | | extremity | [address] | | | | | | Other | Phone: | | | | | | chronic pain | [phone] | | | | | | S/P | Fax: | | | | | | insertion of | [phone] | | | | | | spinal [...] | | | | regional | ,PhD 7559 | | | | | | pain | [address] | | | | | | syndrome | [address] | | | | | | type 1 of | Rd | | | | | | left lower | [place], [place] | | | | | | extremity | [address] | | | | | | Other | Phone: | | | | | | chronic pain | [phone] | | | | | | S/P | Fax: | | | | | | insertion of | [phone] | | | | | | spinal [...] [address] | | | | | [facility] | [address] | | | | | [address] | [place], [place] | | | | | [facility] | [address] | | | | | and Healing, | [phone] | | | | | | | | | | | Floor [place], [place] | | | | | | [address] | | | | | | [phone] | | | +--------+ + + + [...]
--- OUTSIDE RECORDS SUMMARY | ~2020-05-29 | XMS | Encounter Summary ---
Demographics + + + | Address | [address] | | | [place] [address] | + + + | Home Phone [...] Team Providers + +------+ + | Care Satellite Tv Technician Installer Name | Role | Phone | [...] | | syndrome | [address] | [facility] | | | | | type 1 of | Rd | Rd [place], | | | | | left lower | [place], [place] | [place] | | | | | extremity | [address] | [address] | | | | | Procedures | Phone: | Phone: | | | | | REQUEST TO | [phone] | [phone] | | | | | SURGERY | Fax: | Fax: | | | | | [employer] | [phone] | [phone] | +--------+---------+ + + + + Encounter Details +--------+ + + + + | Date | Type | Department | Care Team | Description | +--------+ + + + + | 12/ | Procedure | Pain Center at [facility] | Alex Sanchez, | Foot pain; Knee | | 2018 | | [address] | ,PhD [address] | pain; Procedure | | | | [facility] | [facility] | | | | | and Healing, | [place], [place] | | | | | | [address] | | | | | Floor [place], [place] | [phone] | | | | | [address] | | | | | | [phone] | | | +--------+ + + + [...] Sonia Key - 09/25/2018 1:00 PM PST [facility] Patient Instructions - Post Interventional Procedure Date: 09/25/2018 Name: Tracie Farah Date of : 1990 Procedure Performed: SCS DRG TRIAL LUMBAR [facility] Procedure Provider: Alex Sanchez MD,PhD If you have any problems you believe are associated with your procedure tonight, Please call the Hospital Transition Assistant, and ask for the Pain Management Consu [...] symptoms, dressing, SCS function, or chills. During BUTTONHOLE TACKER open ho urs, call the [facility] ([phone]), after hours call the clarifier operator at [facility] ([phone]) and ask for the Adult Pain Service content assistant. Identify yourself as a Comprehensive [facility] Center [...] to the pat ient. Aleta Rebollar MD [facility] Comprehensive Pain Center Bjjwjrrfbbciak signed by Sonia Key at 09/25/2018 3:07 PM PST documented in this encounter Progress Notes Alex Sanchez MD,PhD - 09/25/2018 1:00 PM PSTI was present for the entire procedure ( DRG SCS trial) and all bocanegra elements of this visit. I reviewed the documentation of the othe r [facility] providers and concur with Dr. Rebollar's findings. I edited his note. Alex Sanchez MD,PhD Cloud Solutions Architect Anesthesiology and Pain Management [facility] [place] onacZain bonner RN - 09/25/2018 1:00 PM [...] by physician. Concentration is 150mg/mL. Compounded by nanoMR ) KETOROLAC IM Inject into the muscle [...] as directed by [facility] Dig[facility]ive [facility]- 2 gallon bowel prep POLYETHYLENE GLYCOL [...] PRE-SEDATION: Date: September 25, 2018 Tracie Farah [id number] 1990 ALLERGIES: Morphine Previous reaction to Sedation/Analgesia: [...] NOTES: Date: September 25, 2018 Tracie Donaldson [facility] [id number] 1990 ALLERGIES: Morphine Previous reaction to Sedation/Analgesia: [...] VS: See Sedation Flow Sheet. Tracie Donaldson [facility] [id number] 1990, presents to clinic for: Procedure: bilateral [...] [facility] Procedure Room Tracie Donaldson [facility] [id number] :1990, presents to clinic for: PROCEDURE: DRG Spinal Cord Stimuation Trial with [facility]. [facility] [employer] [facility] Dai system LEVEL/LATERALITY: left L4, L5 PRE-OPERATIVE DIAGNOSIS: G90.522 Complex regional pain syndrome type 1 of left lower extremity POST-OPERATIVE DIAGNOSIS: G90.522 Complex regional pain syndrome type 1 of left lower extremity ATTENDING PHYSICIAN: Alex Sanchez MD,PhD FILLER SHAKER: Fellow Aleta Rebolalr ANESTHESIA: Sedation delivered by Shantel Benites CRNA. [...] patient. Ms. Farah was transported to the [facility] [place] post-procedure recovery area where she made an uneventful recovery. Programming was performed in the PACU with aid of the device patient relations representative and Ms. Susie faust was sent home with a few programs . This was a unilateral procedure. Alex Sanchez MD,PhD was present for the entire procedure. Images were saved, and sent to [employer]. Ms. Farah was transported to the [facility] [place] post-procedure recovery area. She had an uneventful recovery. Before the procedure, Ms. Farah's pain was 7/10. After the procedure Ms. Farah's pain was 7/10. I, Sonia Key, am functioning as a scribe for Aleta Rebollar MD. I have reviewed and verified the above scribed note of my visit with this patient as record ed by Sonia Key. Aleta Rebollar MD [facility] AT [facility] [address] [facility] Mail Code: [address] [address] documented in t his encounter Plan of Treatment Not on filedocumented as of this encounter Procedures + +--------+ + + + | Procedure Name | Priori | Date/Time | Associated Diagnosis | Comments | | | ty | | | | + +--------+ + + + | NC MOD SEDATION | Routin | 09/25/2018 | Complex regional | | | >=5YRS SAME MD/QUAL | e | 7:31 PM | pain syndrome type 1 | | | PROV; INIT 15 MIN | | PST | of left lower | | | | | | extremity | | + +--------+ + + + | NC PERCUT IMPLNT | Routin | 09/25/2018 | [...]
--- OUTSIDE RECORDS SUMMARY | ~2020-05-29 | XMS | Encounter Summary ---
Demographics + + + | Address | [address] | | | [place] [address] | + + + | Home Phone [...] Providers + +------+ + | Care Pipe Blanks Cut Off Saw Operator Name | Role | Phone | + +------+ + | Justo Vazquez MD | PCP | | + +------+ + Encounter Details +--------+ + + + + | Date | Type | Department | Care Team | Description | +--------+ + + + + | 12/05/ | Pharmacy | [facility] | | | | 2019 | Visit | & [facility]aling Pharmacy | | | | | | [address] | | | | | | Mailcode: [place] | | | | | | [facility] | | | | | | Healing, [address] | | | | | | [place], [place] | | | | | | [address] | | | | | | [phone] | | | +--------+ + + + [...]
--- OUTSIDE RECORDS SUMMARY | ~2020-05-29 | XMS | Encounter Summary ---
Demographics + + + | Address | [address] | | | [place] [address] | + + + | Home Phone [...] Team Providers + +------+ + | Care Outsole Caser Name | Role | Phone | + +------+ + | Jusot Vazquez MD | PCP | | + +------+ + Encounter Details +--------+ + + + + | Date | Type | Department | Care Team | Description | +--------+ + + + + | 05/05/ | Documentati | [facility] | Alex Sanchez, | | | 2018 | on | Pain Center at | ,PhD [address] | | | | | [facility] | [address] | | | | | [address] | [place], [place] | | | | | [place] for [facility] | [address] | | | | | and Healing, | [phone] | | | | | | | | | | | Floor [place], [place] | | | | | | [address] | | | | | | [phone] | | | +--------+ + + + [...]
--- OUTSIDE RECORDS SUMMARY | ~2020-05-29 | XMS | Encounter Summary ---
Demographics + + + | Address | [address] | | | [place] [address] | + + + | Home Phone [...] Providers + +------+ + | Care Industrial Organization Manager Name | Role | Phone | [...] [address] | | | | | [facility] | [facility], | | | | | [address] | [place] [address] | | | | | [facility] | [phone] | | | | | and Healing, | | | | | | Building | | | | | | [place], [place] | | | | | | [address] | | | | | | [phone] | | | +--------+ + + + [...]
--- OUTSIDE RECORDS SUMMARY | ~2020-05-29 | XMS | Encounter Summary ---
Demographics + + + | Address | [address] | | | [place] [address] | + + + | Home Phone [...] Team Providers + +------+ + | Care Studio Camera Operator Name | Role | Phone | [...] | | | | | [address] | | | | | | [address] | | | | | | [place], | | | | | | [address] [place] [address], | | | | | | [place] [address] | | | | | | [phone] | | | +--------+ + + + [...]
--- OUTSIDE RECORDS SUMMARY | ~2020-05-29 | XMS | Encounter Summary ---
Demographics + + + | Address | [address] | | | [place] [address] | + + + | Home Phone [...] + +------+ + | Care Human Resources Supervisor Name | Role | Phone | [...] Rd | | | | | | [place], [place] | | | | | | [address] | | | +--------+ + + + [...]
--- OUTSIDE RECORDS SUMMARY | ~2020-05-29 | XMS | Encounter Summary ---
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 | | | | Therapy | CRPS | Janak Martinez MD | [address] | | | | | (complex | [address] | | | | | regional | [address] | Mailcode: | | | | | pain | Mailstop | [facility] | | | | | syndrome), | [id number] | for Health | | | | | lower limb | [place], [place] | and Healing, | | | | | Gait | [address] | [address] | | | | | disturbance | Phone: | [place], [place] | | | | | Muscle pain | [phone] | [address] | | | | | Procedures | Fax: | Phone: | | | | | PHYSICAL | [phone] | [phone] | | | | | THERAPY | [...] | | | | [address] | [place] [address] | syndrome), lower | | | | [address] | [phone] | limb (Primary Dx) | | | | [facility] | | | | | | and Healing, | | | | | | Building [address], | | | | | | Floor [place], [place] | | | | | | [address] | | | | | | [phone] | | | +--------+---------+ + + + [...] might be different f rom the original. [id number] BRODY FARAH Date of : 1990 Start of care: 02/14/2012 Date of onset: 02/14/2012 Referring/Attending Practitioner: Janak Riojas MD . Primary/Referral Diagnosis/ICD-9: 355.71B CRPS (complex regional pain syndrome), lower limb Insurance: Payor: [facility] iWantoo Plan: BCBS OUT OF STATE Product Type: PP O Service period from: 02/14/2012 to: 08/12/2012 Number visits used/authorized: 04/25 [facility] PHYSICAL THERAPY PROGRESS NOTE SUBJECTIVE: [...] change in their status. Guillermo Sanon MSPT [facility] Outpatient Rehabilitation Services Mailcode: Ch3[facility] [address] [facility] [place], [address] [place] [address] documented in this encounter Plan of [...]
--- OUTSIDE RECORDS SUMMARY | ~2020-05-29 | XMS | Encounter Summary ---
Demographics + + + | Address | [address] | | | [place] [address] | + + + | Home Phone [...] Providers + +------+ + | Care Electrical Manufacturing Engineer Name | Role | Phone | + +------+ + | Justo Vazquez MD | PCP | | + +------+ + Encounter Details +--------+ + + + + | Date | Type | Department | Care Team | Description | +--------+ + + + + | 03/12/ | It Application Development Manager | [facility] | Alex Sanchez, | Complex regional | | 2019 | | Pain Center at | ,PhD [address] [facility] | pain syndrome type 1 | | | | [facility] | [address] | of left lower | | | | [address] | [place], [place] | extremity; S/P | | | | Center for Health | [address] | insertion of spinal | | | | and Healing, | [phone] | cord stimulator | | | | | | | | | | Floor [place], [place] | | | | | | [address] | | | | | | [phone] | | | +--------+ + + + [...]
--- OUTSIDE RECORDS SUMMARY | ~2020-05-29 | XMS | Encounter Summary ---
Demographics + + + | Address | [address] | | | [place] [address] | + + + | Home Phone [...] Providers + +------+ + | Care Head Doffer Name | Role | Phone | + +------+ + | Justo Vazquez MD | PCP | | + +------+ + Encounter Details +--------+ + + + + | Date | Type | Department | Care Team | Description | +--------+ + + + + | 12/07/ | Pharmacy | [facility] | | | | 2019 | Visit | & Healing Pharmacy | | | | | | [address] | | | | | | Mailcode: [place] | | | | | | Health and | | | | | | Healing, [address] | | | | | | [place], [place] | | | | | | [address] | | | | | | [phone] | | | +--------+ + + + [...]
--- OUTSIDE RECORDS SUMMARY | ~2020-05-29 | XMS | Encounter Summary ---
Demographics + + + | Address | [address] | | | [place] [address] | + + + | Home Phone [...] Providers + +------+ + | Care Credit Negotiator Name | Role | Phone | + +------+ + | Justo Vazquez MD | PCP | | + +------+ + Encounter Details +--------+ + + + + | Date | Type | Department | Care Team | Description | +--------+ + + + + | 06/07/ | Telephone | [facility] | Alex Sanchez, | | | 2019 | | Pain Center at | ,PhD [address] | | | | | [facility] | [address] | | | | | [address] | [place], [place] | | | | | [place] for [facility] | [address] | | | | | and Healing, | [phone] | | | | | | | | | | | Floor [place], [place] | | | | | | [address] | | | | | | [phone] | | | +--------+ + + + [...]
--- OUTSIDE RECORDS SUMMARY | ~2020-05-29 | XMS | Encounter Summary ---
Demographics + + + | Address | [address] | | | [place] [address] | + + + | Home Phone [...] Team Providers + +------+ + | Care Promotions Team Leader Name | Role | Phone [...] Center at [facility] [address] | | pain | | | | [address] [facility] | | | | | | for Health and | | | | | | Healing, [address] | | | | | | [place], [place] | | | | | | [address] | | | | | | [phone] | | | +--------+ + + + [...]
--- OUTSIDE RECORDS SUMMARY | ~2020-05-29 | XMS | Encounter Summary ---
Demographics + + + | Address | [address] | | | [place] [address] | + + + | Home Phone [...] Providers + +------+ + | Care Manager Vehicle Name | Role | Phone | + +------+ + | Justo Vazquez MD | PCP | | + +------+ + Encounter Details +--------+ + + + + | Date | Type | Department | Care Team | Description | +--------+ + + + + | 12/02/ | Document-Sc | Health Information | Unknown . | | | 2017 | anned | Services [phone] | | | | | | [address] | | | | | | Mailcode: [id number] | | | | | | [facility] | | | | | | [place], [place] | | | | | | [address] | | | | | | [phone] | | | +--------+ + + + [...]
--- OUTSIDE RECORDS SUMMARY | ~2020-05-29 | XMS | Encounter Summary ---
Demographics + + + | Address | [address] | | | [place] [address] | + + + | Home Phone [...] Team Providers + +------+ + | Care Picture Booker Name | Role | Phone | + +------+ + | Justo Vazquez MD | PCP | | + +------+ + Encounter Details +--------+ + + + + | Date | Type | Department | Care Team | Description | +--------+ + + + + | 12/07/ | Special Education Resource Teacher | [facility] | Ava Carbajal | | | 2016 | | [place] [address] | | | | | [address] [facility] for | | | | | | Health and Healing, | | | | | | Building [address] | | | | | | [place], [place] | | | | | | [address] | | | | | | [phone] | | | +--------+ + + + [...]
--- OUTSIDE RECORDS SUMMARY | ~2020-05-29 | XMS | Encounter Summary ---
Demographics + + + | Address | [address] | | | [place] [address] | + + + | Home Phone | | + + + | Preferred Language | Unknown | + + + | Marital Status | Single | + + + | Mosque Affiliation | 1073 | + + + | Race | Unknown | + + + | Ethnic Group | Unknown | + + + Author + + + | Author | [facility] | | | and [place] | + + + | Organization | [facility] | | | and [place] | [...] [place] | | | | | [address] | | + + + + + | Bryant Farah | ECON | Unknown | | + + + + + Care Team Providers + +------+ + | Care Painter Interior Finish Name | Role | Phone | + +------+ + PCP | Unavailable | + +------+ + Encounter Details +--------+ + + + + | Date | Type | Department | Care Team | Description | +--------+ + + + + | 06/22/ | Emergency | [facility] | Chung Portillo | Nondiabetic | | 2016 | | [facility]ENTER | DO [address] | gastroparesis | | | | EMERGENCY CENTER | [address] | | | | | [address] | [place], [place] | | | | | [place], [place] | [address] | | | | | [address] | [phone] | | | | | [phone] | | | +--------+ + + + [...] 06/23/161053 Date of Service: 06/23/161053 Status: Signed Senior Test Analyst: Devante Guerrero MD (Physician) Procedures Additional Documentation Procedures Pharmacy called to clarify viscous lidocaine order - there was no frequency specified. I a dvised Q 4 hours PRN. Devante Guerrero MD 06/23/161053 John Mcgee PA-C - 06/22/2016 7:25 PM PDT ED Provider Notes by John Leonard PA-C at 06/22/161924 Author: John Leonard PA-C Service: Emergency Department Author Type: Physician Paint Coating Machine Operator - Certified Filed: 06/22/162104 Date of Service: 06/22/161924 Status: Signed Senior Test Analyst: John Leonard PA-C (Physician Paint Coating Machine Operator - Certified) Cosigner: Chung Portillo DO at 06/22/[address] [facility] EMERGENCY DEPARTMENT History of Present Illness Patient [...] department evaluations and treatment with Reglan at [facility] and has come to [facility] for, further evaluation and relief. Patient relates that she does not have a veterinary surgery technologist follow-up or provider. Past Medical History Diagnosis [...] TRIAL; Surgeon: Ulices Hayes MD; Locati on: [facility]; Service: Pain Management; Laterality: [...] is afebrile and nontoxic-appearing at this ti al. Records Reviewed Nursing notes. Labs & Radiology Results Laboratory Evaluation Results Procedure Component Value Ref Range Date/Time Lactic acid [[id number]] Collected: 06/22/161850 Order Status: Completed Specimen Information: Blood Updated: 06/22/162010 LACTIC ACID 1.2 0.4 - 2.0 mmol/L Magnesium [[id number]] Collected: 06/22/161850 Order Status: Completed Specimen Information: Blood Updated: 06/22/162008 MAGNESIUM 2.1 1.7 - 2.4 mg/dL Phosphorus [[id number]] Collected: 06/22/161850 Order Status: Completed Specimen Information: Blood Updated: 06/22/162008 PHOSPHORUS 3.6 2.3 - 4.8 mg/dL Lipase [[id number]] Collected: 06/22/161850 Order Status: Completed Specimen Information: Blood Updated: 06/22/161926 LIPASE 103 73 - 393 U/L Comprehensive metabolic panel [[id number]] (Abnormal) Collected: 06/22/161850 Order Status: Completed Specimen [...] 65 U/L EGFR >60 >60 mL/min/1.73m2 Amylase [[id number]] Collected: 06/22/161850 Order Status: Completed Specimen Information: Blood Updated: 06/22/161926 AMYLASE 39 25 - 115 U/L C-reactive protein [[id number]] Collected: 06/22/161850 Order Status: Completed Specimen Information: Blood Updated: 06/22/161926 CRP <0.3 <0.5 mg/dL CBC with differential [[id number]] Collected: 06/22/161850 Order Status: Completed Specimen Information: [...] K/uL Urinalysis (reflex to micro/reflex to culture) [[id number]] Collected: 06/22/161848 Order Status: Completed Specimen Information: Urine, Clean Catch Updated: 06/22/16 19 09 COLOR UA STRAW CLARITY CLEAR Specific [place], UA 1.005 1.002 - 1.030 LEUKOCYTE ESTERASE NEGATIVE NEGATIVE NITRITE NEGATIVE NEGATIVE UROBILINOGEN NORMAL <1.1 mg/dL PROTEIN NEGATIVE NEGATIVE mg/dL PH,URINE 7.0 5.0 - 8.0 BLOOD NEGATIVE NEGATIVE KETONES NEGATIVE NEGATIVE mg/dL BILIRUBIN NEGATIVE NEGATIVE GLUCOSE NEGATIVE NEGATIVE mg/dL Urine Test [[id number]] Collected: 06/22/161848 Order Status: Completed Specimen Information: [...] as soon as possible for a visit [address] [place] [address] Allegra Chaudhary PA-C In 1 week [address] [address] [facility] Emergency Department If symptoms worsen [address] [place] [address] [id number] Discharge Medications: Discharge Medication List as of [...] 06/22/161745 Date of Service: 06/22/161745 Status: Signed Senior Test Analyst: Sd Comer RN (Registered Nurse) Patient given [...] EXTERNAL | | | | performed at [facility];888 | K/uL | LAB | | | | [address];[place] | | | | | | [address] | | | | + + + + + + | Non- | 4.46Comment: Testing | 3.70 - 5.10 | EXTERNAL | | | Red Blood | performed at [facility];888 | M/uL | LAB | | | Cells | [address];[place] | | | | | Counted | [address] | | | | + + + + + + | Hemoglobin | 13.9Comment: Testing | 11.3 - 15.5 | EXTERNAL | | | | performed at [facility];888 | g/dL | LAB | | | | [address];[place] | | | | | | [address] | | | | + + + + + + | Hematocrit, | 41.0Comment: Testing | 34.0 - 46.0 % | EXTERNAL | | | POC | performed at [facility];888 | | LAB | | | | [address];[place] | | | | | | [address] | | | | + + + + + + | MCV | 91.9Comment: Testing | 80.0 - 100.0 fl | EXTERNAL | | | | performed at [facility];888 | | LAB | | | | [address];[place] | | | | | | [address] | | | | + + + + + + | MCH | 31.1Comment: Testing | 27.0 - 34.0 pg | EXTERNAL | | | | performed at [facility];888 | | LAB | | | | [address];[place] | | | | | | [address] | | | | + + + + + + | MCHC | 33.9Comment: Testing | 32.0 - 35.5 | EXTERNAL | | | | performed at [facility];888 | g/dL | LAB | | | | [address];[place] | | | | | | [address] | | | | + + + + + + | RDW-CV | 40.3Comment: Testing | 37 - 53 fl | EXTERNAL | | | | performed at [facility];888 | | LAB | | | | [address];[place] | | | | | | [address] | | | | + + + + + + | Platelet | 203Comment: Testing | 150 - 400 K/uL | EXTERNAL | | | Count | performed at [facility];888 | | LAB | | | Plasma | [address];[place] | | | | | | [address] | | | | + + + + + + | MPV | 8.3Comment: Testing | fl | EXTERNAL | | | | performed at [facility];888 | | LAB | | | | [address];[place] | | | | | | [address] | | | | + + + + + + | Differentia | AUTOMATEDComment: | | EXTERNAL | | | l Type | Testing performed at | | LAB | | | | [facility];[address];[place] [address] | | | | + + + + + + | % Segmented | 65.86Comment: Testing | % | EXTERNAL | | | | performed at [facility];888 | | LAB | | | Neutrophils | [address];[place] | | | | | | [address] | | | | + + + + + + | % | 25.52Comment: Testing | % | EXTERNAL | | | Lymphocytes | performed at [facility];[address] | | LAB | | | | [address];[place] | | | | | | [address] | | | | + + + + + + | % Monocytes | 6.38Comment: Testing | % | EXTERNAL | | | | performed at [facility];[address] | | LAB | | | | [address];[place] | | | | | | [address] | | | | + + + + + + | % | 1.61Comment: Testing | % | EXTERNAL | | | Eosinophils | performed at [facility];888 | | LAB | | | | [address];[place] | | | | | | [address] | | | | + + + + + + | % Basophils | 0.63Comment: Testing | % | EXTERNAL | | | | performed at [facility];[address] | | LAB | | | | [address];[place] | | | | | | [address] | | | | + + + + + + | Absolute | 6.91Comment: Testing | 1.90 - 7.40 | EXTERNAL | | | Segmented | performed at [facility];888 | K/uL | LAB | | | Neutrophils | [address];[place] | | | | | | [address] | | | | + + + + + + | Absolute | 2.68Comment: Testing | 1.00 - 3.90 | EXTERNAL | | | Lymphocytes | performed at [facility];888 | K/uL | LAB | | | | [address];[place] | | | | | | [address] | | | | + + + + + + | Absolute | 0.67Comment: Testing | 0.00 - 0.80 | EXTERNAL | | | Monocytes | performed at [facility];888 | K/uL | LAB | | | | [address];[place] | | | | | | [address] | | | | + + + + + + | Absolute | 0.17Comment: Testing | 0.00 - 0.50 | EXTERNAL | | | Eosinophils | performed at [facility];888 | K/uL | LAB | | | | [address];[place] | | | | | | [address] | | | | + + + + + + | Absolute | 0.07Comment: Testing | 0.00 - 0.10 | EXTERNAL | | | Basophils | performed at [facility];888 | K/uL | LAB | | | | [address];[place], [place] | | | | | | [address] | | | | + + + [...] EXTERNAL | | | | performed at [facility] | | LAB | | | | [address];[place], [place] | | | | | | [address] | | | | + + + [...] EXTERNAL | | | | performed at [facility];888 | | LAB | | | | [address];[place] | | | | | | [address] | | | | + + + [...] LAB | | | | performed at [facility];[address] | | | | | | [address];[place], [place] | | | | | | [address] | | | | + + + [...] EXTERNAL | | | | performed at [facility];8 | | LAB | | | | [address];[place] | | | | | | [address] | | | | + + + [...] EXTERNAL | | | | performed at [facility];888 | mmol/L | LAB | | | | [address];[place], [place] | | | | | | [address] | | | | + + + [...] EXTERNAL | | | | performed at [facility];888 | | LAB | | | | [address];[place] | | | | | | [address] | | | | + + + [...] EXTERNAL | | | | performed at [facility];888 | mmol/L | LAB | | | | [address];[place] | | | | | | [address] | | | | + + + + + + | K | 3.8Comment: Testing | 3.5 - 4.9 | EXTERNAL | | | | performed at [facility];888 | mmol/L | LAB | | | | [address];[place] | | | | | | [address] | | | | + + + + + + | Cl | 104Comment: Testing | 99 - 109 mmol/L | EXTERNAL | | | | performed at [facility];[address] | | LAB | | | | [address];[place] | | | | | | [address] | | | | + + + + + + | CO2 | 27Comment: Testing | 23 - 32 mmol/L | EXTERNAL | | | | performed at [facility];[address] | | LAB | | | | [address];[place] | | | | | | [address] | | | | + + + + + + | Anion Gap | 12Comment: Testing | 5 - 20 mmol/L | EXTERNAL | | | | performed at [facility];[address] | | LAB | | | | [address];[place] | | | | | | [address] | | | | + + + + + + | Glucose, | 80Comment: Testing | 65 - 99 mg/dL | EXTERNAL | | | Fasting | performed at [facility];[address] | | LAB | | | | [address];[place] | | | | | | [address] | | | | + + + + + + | BUN | 4 (L)Comment: Testing | 8 - 25 mg/dL | EXTERNAL | | | | performed at [facility];[address] | | LAB | | | | [address];[place] | | | | | | [address] | | | | + + + + + + | Creatinine | 0.83Comment: Testing | 0.50 - 1.00 | EXTERNAL | | | | performed at [facility];888 | mg/dL | LAB | | | | [address];[place] | | | | | | [address] | | | | + + + + + + | BUN/Creatin | 5Comment: Testing | | EXTERNAL | | | ine Ratio | performed at [facility];[address] | | LAB | | | | [address];[place] | | | | | | [address] | | | | + + + + + + | Calcium | 9.1Comment: Testing | 8.5 - 10.5 | EXTERNAL | | | | performed at [facility];888 | mg/dL | LAB | | | | [address];[place] | | | | | | [address] | | | | + + + + + + | Protein, | 7.4Comment: Testing | 6.3 - 8.2 g/dL | EXTERNAL | | | Total | performed at [facility];[address] | | LAB | | | | [address];[place] | | | | | | [address] | | | | + + + + + + | Albumin | 4.5Comment: Testing | 3.6 - 5.0 g/dL | EXTERNAL | | | | performed at [facility];[address] | | LAB | | | | [address];[place] | | | | | | [address] | | | | + + + + + + | Globulin | 3.0Comment: Testing | 1.3 - 4.9 g/dL | EXTERNAL | | | | performed at [facility];[address] | | LAB | | | | [address];[place] | | | | | | [address] | | | | + + + + + + | A/G Ratio | 1.5Comment: Testing | 1.0 - 2.4 | EXTERNAL | | | | performed at [facility];[address] | | LAB | | | | [address];[place] | | | | | | [address] | | | | + + + + + + | Bilirubin | 0.6Comment: Testing | 0.1 - 1.5 mg/dL | EXTERNAL | | | Total | performed at [facility];[address] | | LAB | | | | [address];[place] | | | | | | [address] | | | | + + + + + + | ALP, | 61Comment: Testing | 35 - 115 U/L | EXTERNAL | | | External | performed at [facility];[address] | | LAB | | | | [address];[place] | | | | | | [address] | | | | + + + + + + | AST | 7 (L)Comment: Testing | 10 - 45 U/L | EXTERNAL | | | | performed at [facility];888 | | LAB | | | | [address];[place] | | | | | | [address] | | | | + + + + + + | ALT | 20Comment: Testing | 10 - 65 U/L | EXTERNAL | | | | performed at [facility];[address] | | LAB | | | | [address];[place] | | | | | | [address] | | | | + + + [...] | | | | | | at [facility];[address] | [address];[place] [address] | | | | + + + [...] EXTERNAL | | | | performed at [facility] | | LAB | | | | [address];[place] | | | | | | [address] | | | | + + + + + + | Clarity, | CLEARComment: Testing | | EXTERNAL | | | Urine | performed at [facility];[address] | | LAB | | | | [address];[place] | | | | | | [address] | | | | + + + + + + | Specific | 1.005Comment: Testing | 1.002 - 1.030 | EXTERNAL | | | [place], | performed at [facility];888 | | LAB | | | Urine | [address];[place] | | | | | | [address] | | | | + + + + + + | Leukocyte | NEGATIVEComment: Testing | | EXTERNAL | | | Esterase, | performed at [facility];[address] | | LAB | | | Urine | [address];[place] | | | | | | [address] | | | | + + + + + + | Nitrite, | NEGATIVEComment: Testing | | EXTERNAL | | | Urine | performed at [facility];[address] | | LAB | | | | [address];[place] | | | | | | [address] | | | | + + + + + + | Urobilinoge | NORMALComment: Testing | mg/dL | EXTERNAL | | | n, Urine | performed at [facility];[address] | | LAB | | | | [address];[place] | | | | | | [address] | | | | + + + + + + | Protein, | NEGATIVEComment: Testing | mg/dL | EXTERNAL | | | Urine | performed at [facility];[address] | | LAB | | | | [address];[place] | | | | | | [address] | | | | + + + + + + | pH, Urine | 7.0Comment: Testing | 5.0 - 8.0 | EXTERNAL | | | | performed at [facility];888 | | LAB | | | | [address];[place] | | | | | | [address] | | | | + + + + + + | Blood, | NEGATIVEComment: Testing | | EXTERNAL | | | Urine | performed at [facility];[address] | | LAB | | | | [address];[place] | | | | | | [address] | | | | + + + + + + | Ketones | NEGATIVEComment: Testing | mg/dL | EXTERNAL | | | | performed at [facility];[address] | | LAB | | | | [address];[place] | | | | | | [address] | | | | + + + + + + | Bilirubin, | NEGATIVEComment: Testing | | EXTERNAL | | | Urine | performed at [facility];[address] | | LAB | | | | [address];[place] | | | | | | [address] | | | | + + + + + + | Glucose, | NEGATIVEComment: Testing | mg/dL | EXTERNAL | | | Urine | performed at [facility];888 | | LAB | | | | [address];[place], [place] | | | | | | [address] | | | | + + + [...] | | | Ur | performed at [facility] | | LAB | | | | [address];[place], [place] | | | | | | [address] | | | | + + + [...]
--- OUTSIDE RECORDS SUMMARY | ~2020-05-29 | XMS | Encounter Summary ---
Demographics + + + | Address | [address] | | | [place] [address] | + + + | Home Phone [...] Providers + +------+ + | Care International Coordinator Name | Role | Phone | [...] Pain Medicine | Diagnoses | Chas[place], | Tapeman Chh1 | | | | / Pain | Abdominal | MD Kenny | [address] | | | | Management | pain, | [address] | [facility] | | | | | unspecified | [facility] | for Health | | | | | location | Rd | and Healing, | | | | | Procedures | [place], [place] | Building | | | | | CONSULT TO | [address] | 1,15th Floor | | | | | PAIN | | [place], [place] | | | | | MANAGEMENT | | [address] | | | | | | | Phone: | | | | | | | [phone] | | | | | | | Fax: | | | | | | | [phone] | +--------+--------+ + + + + Reason [...] Abdominal | | 2016 | | Center [place] [address] | | pain | | | | [address] [facility] | | | | | | for Health and | | | | | | Healing, [facility] | | | | | | [place], [place] | | | | | | [address] | | | | | | [phone] | | | +--------+ + + + [...]
--- OUTSIDE RECORDS SUMMARY | ~2020-05-29 | XMS | Encounter Summary ---
Demographics + + + | Address | [address] | | | [place] [address] | + + + | Home Phone [...] Providers + +------+ + | Care Cathode Maker Name | Role | Phone | + +------+ + | Allegra Gandhi | PCP | | + +------+ + Encounter Details +--------+ + + + + | Date | Type | Department | Care Team | Description | +--------+ + + + + | 08/02/ | Results | [facility] [[email or web address]] | Janak Riojas, | | | 2011 | Only | Pain Center at | MD [address] [facility] | | | | | [facility] | [facility] [id number] | | | | | [address] | [place], [place] | | | | | Center for Health | [address] | | | | | and [place], | [phone] | | | | | | | | | | | Floor [place], [place] | | | | | | [address] | | | | | | [phone] | | | +--------+ + + + [...]
--- OUTSIDE RECORDS SUMMARY | ~2020-05-29 | XMS | Encounter Summary ---
Demographics + + + | Address | [address] | | | [place] [address] [...] Providers + +------+ + | Care School Cook Name | Role | Phone | + +------+ + | Justo Vazquez MD | PCP | | + +------+ + Encounter Details +--------+ + + + + | Date | Type | Department | Care Team | Description | +--------+ + + + + | 09/27/ | Telephone | [facility] | Ilene Bright, | | | 2017 | | Pain Center at | PROFILE MILL OPERATOR TAPE CONTROL [address] | | | | | [facility] | [place], [place] | | | | | [address] | [address] | | | | | [place] for [facility] | [phone] | | | | | and Healing, | | | | | | | | | | | | Floor [place], [place] | | | | | | [address] | | | | | | [phone] | | | +--------+ + + + [...]
--- OUTSIDE RECORDS SUMMARY | ~2020-05-29 | XMS | Encounter Summary ---
Demographics + + + | Address | [address] | | | [place] [address] | + + + | Home Phone [...] Team Providers + +------+ + | Care Olive Grader Name | Role | Phone | + +------+ + | Justo Vazquez MD | PCP | | + +------+ + Encounter Details +--------+ + + + + | Date | Type | Department | Care Team | Description | +--------+ + + + + | 03/16/ | Telephone | [facility] | Crys Gomez, | | | 2016 | | Center at [facility] [address] | [address] | | | | | [address] | [address] | | | | | [facility] and | [place], [place] | | | | | [facility], [facility] 2 | [address] | | | | | [place], [place] | [phone] | | | | | [address] | | | | | | [phone] | | | +--------+ + + + [...]
--- OUTSIDE RECORDS SUMMARY | ~2020-05-29 | XMS | Encounter Summary ---
Demographics + + + | Address | [address] | | | [place] [address] | + + + | Home Phone [...] Team Providers + +------+ + | Care Commodities Broker Name | Role | Phone | [...] + + | 09/14/ | Telephone | [facility] [place] | Alex Sanchez, | Education procedure | | 2018 | | Pain Center at | ,PhD [address] | (preprocedure | | | | [facility] | [address] | education [employer]) | | | | [address] | [place], [place] | | | | | [facility] | [address] | | | | | and Healing, | [phone] | | | | | | | | | | | Floor [place], [place] | | | | | | [address] | | | | | | [phone] | | | +--------+ + + + [...]
--- OUTSIDE RECORDS SUMMARY | ~2020-05-29 | XMS | Encounter Summary ---
Demographics + + + | Address | [address] | | | [place] [address] | + + + | Home Phone [...] Team Providers + +------+ + | Care Route Rider Name | Role | Phone | [...] [address] | | | | | [facility] | [address] | | | | | [address] | [place], [place] | | | | | [facility] | [address] | | | | | and [place], | [phone] | | | | | Building | | | | | | Floor [place], [place] | | | | | | [address] | | | | | | [phone] | | | +--------+ + + + [...]
--- OUTSIDE RECORDS SUMMARY | ~2020-05-29 | XMS | Encounter Summary ---
Demographics + + + | Address | [address] | | | [place] [address] | + + + | Home Phone [...] Team Providers + +------+ + | Care Board Mill Supervisor Name | Role | Phone | + +------+ + | Justo Vazquez MD | PCP | | + +------+ + Encounter Details +--------+ + + + + | Date | Type | Department | Care Team | Description | +--------+ + + + + | 09/25/ | Hospital | Radiology/Imaging | Aleta Rebollar MD [address] | | | 2018 | Encounter | Lab at [facility] [address] | | | | | [address] [facility] for | [place], [place] | | | | | Health and Healing, | [address] | | | | | [address] | [phone] | | | | | Floor [place], [place] | | | | | | [address] | | | | | | [phone] | | | +--------+ + + + [...]
--- OUTSIDE RECORDS SUMMARY | ~2020-05-29 | XMS | Encounter Summary ---
Demographics + + + | Address | [address] | | | [place] [address] | + + + | Home Phone [...] Providers + +------+ + | Care Youth Officer Name | Role | Phone | [...] | Diagnoses | Beulah | Edu Pt Poke In | | | | Therapy | CRPS | Janak Martinez MD | [facility] [address] | | | | | (complex | [address] | | | | | regional | [address] | Mailcode: | | | | | pain | Mailstop | [facility] | | | | | syndrome), | [id number] | for Health | | | | | lower limb | [place], [place] | and Healing, | | | | | Gait | [address] | Building 1 | | | | | disturbance | Phone: | [place], [place] | | | | | Muscle pain | [phone] | [address] | | | | | Procedures | Fax: | Phone: | | | | | PHYSICAL | [phone] | [phone] | | | | | THERAPY | [...] regional pain | | | | [facility] | [place] [address] | syndrome), lower | | | | [address] | [phone] | limb (Primary Dx) | | | | [facility] | | | | | | and Healing, | | | | | | Building 1, 1st | | | | | | Floor [place], [place] | | | | | | [address] | | | | | | [phone] | | | +--------+---------+ + + + [...] might be different f rom the original. [id number] BRODY FARAH Date of : 1990 Start of care: 02/14/2012 Date of onset: 02/14/2012 Referring/Attending Practitioner: Janak Riojas MD . Primary/Referral Diagnosis/ICD-9: 355.71B CRPS (complex regional pain syndrome), lower limb Insurance: Payor: [facility] Plan: BCBS OUT OF STATE Product Type: PP O Service period from: 02/14/2012 to: 08/12/2012 Number visits used/authorized: 05/25 [facility] PHYSICAL THERAPY PROGRESS NOTE SUBJECTIVE: Age: 21 [...] any change in their status. Guillermo Sanon [facility] Outpatient Rehabilitation Services Mailcode: Ch3p [address] [facility], 1st Floor [facility] [address] documented in this encounter Plan of Treatment Not on filedocumented as of this encounter Procedures + +--------+ + + + | Procedure Name | Priori | Date/Time | Associated Diagnosis | Comments | | | ty | | | | + +--------+ + + + | GA MANUAL THER | Routin | 06/09/2012 | CRPS (complex | | | TECH,1+REGIONS,EA 15 | e | 2:46 PM | regional pain | | | MIN | | PDT | syndrome), lower | | | | | | limb | | + +--------+ + + + | GA THERAPEUTIC | Routin | 06/09/2012 | CRPS [...]
--- OUTSIDE RECORDS SUMMARY | ~2020-05-29 | XMS | Clinical Summary ---
Demographics + + + | Address | [address] | | | [place] [address] | + + + | Home Phone [...] | [facility] | + + + | Organization | [facility] | + + + | Address | Unknown | + + + | Phone | Unavailable | + + + Support + + +---------+ + | Name | Relationship | Address | Phone | + + +---------+ + | Patricia Colin | ECON | Unknown | | + + +---------+ + Care Team Providers + +------+ + | Care Business Line Manager Name | Role | Phone | + +------+ + | Justo Vazquez MD | PCP | | + +------+ + Source Comments KEVIN is fully live on both [facility] Ambulatory and [facility] InPatient.[facility] Allergies + + + + + [...] + | Overview: Patient has an implanted [employer] spinal | | cord stimulator. Model#: [id number]. Contact [phone] for | | technical assistance.Contraindications:Sources of strong [...] | Right: | BARD | | | [id number] | | Port-10/05/2016Implanted: | | Chest | | | | 0 / | | 10/05/2016 by Obdulio Simpson, | | | | | | /VIKY | | (Quantity not on file) | | | | | | 204 | + +------+--------+ +--------+--------+--------+ + + | Description:Not Power | | Injectable, Progress record | | faxed from [facility] | | Hospital in [place], [place], | | [facility] RN | + + + +---+---+ +---+--------+--------+ | Slimtip DrgImplanted: Qty: 1 | | | ST J[facility]ICA | | 01/06/ | [id number] | | on 12/05/2018 by Daniel, | | | MEDICAL [place] | | 2020 | 0-50A | | [place] MD,PhD at [facility] | | | | | | /[id number] | | INPATIENT REV LOC | | | | | | 371 / | + +---+---+ +---+--------+--------+ + + | Description:Level 4 | + + + +---+---+ +---+---+--------+ | Slimtip DrgImplanted: Qty: 1 | | | ST JESSICA | | | [id number] | | on 12/05/2018 by Daniel, | | | MEDICAL [place] | | | 0-50A | | [place] MD,PhD at [facility] | | | | | | /[id number] | | INPATIENT REV LOC | | [...] | | | | | | | [phone] | | + +--------+ +--------+ + +--------+ | BUNCHER OPERATOR MEDICAID | BUNCHER OPERATOR | xxxxxxxx | 11/14/19 | | | [...] | 1990 | [phone] | [place] [address] | | | evita | | | [...]
--- OUTSIDE RECORDS SUMMARY | ~2020-05-29 | XMS | Encounter Summary ---
Demographics + + + | Address | [address] | | | [place] [address] | + + + | Home Phone [...] Providers + +------+ + | Care Job Analyst Name | Role | Phone | + +------+ + | Justo Vazquez MD | PCP | | + +------+ + Encounter Details +--------+ + + + + | Date | Type | Department | Care Team | Description | +--------+ + + + + | 07/26/ | MyChart | [facility] Comprehensive | Ilene Bright, | Labs | | 2017 | Encounter | Pain Center at | MACHINE REPAIR PERSON [address] | | | | | [facility] | [place], [place] | | | | | [address] | [address] | | | | | [place] for [facility] | [phone] | | | | | and Healing, | | | | | | | | | | | | Floor [place], [place] | | | | | | [address] | | | | | | [phone] | | | +--------+ + + + [...]
--- OUTSIDE RECORDS SUMMARY | ~2020-05-29 | XMS | Encounter Summary ---
Demographics + + + | Address | [address] | | | [place] [address] | + + + | Home Phone [...] Team Providers + +------+ + | Care Dyed Raw Stock Blower Feeder Name | Role | Phone | + +------+ + | Justo Vazquez MD | PCP | | + +------+ + Encounter Details +--------+ + + + + | Date | Type | Department | Care Team | Description | +--------+ + + + + | 09/20/ | Telephone | [facility] | Ilene Bright, | | | 2017 | | Pain Center at | CUSTOMER EXPERIENCE ANALYST [address] | | | | | [facility] | [place], [place] | | | | | [address] | [address] | | | | | [place] for [facility] | [phone] | | | | | and Healing, | | | | | | | | | | | | Floor [place], [place] | | | | | | [address] | | | | | | [phone] | | | +--------+ + + + [...]
--- OUTSIDE RECORDS SUMMARY | ~2020-05-29 | XMS | Encounter Summary ---
Demographics + + + | Address | [address] | | | [place] [address] | + + + | Home Phone [...] Team Providers + +------+ + | Care Kiss Machine Operator Name | Role | Phone [...] 2019 | | Pain Center at | MISSION WORKER [address] | | | | | [facility] | [place], [place] | | | | | [address] | [address] | | | | | [place] for [facility] | [phone] | | | | | and Healing, | | | | | | | | | | | | Floor [place], [place] | | | | | | [address] | | | | | | [phone] | | | +--------+ + + + [...]
--- OUTSIDE RECORDS SUMMARY | ~2020-05-29 | XMS | Encounter Summary ---
Demographics + + + | Address | [address] | | | [place] [address] | + + + | Home Phone [...] Team Providers + +------+ + | Care Cocoa Milling Machine Operator Name | Role | Phone | + +------+ + | Justo Vazquez MD | PCP | | + +------+ + Encounter Details +--------+ + + + + | Date | Type | Department | Care Team | Description | +--------+ + + + + | 12/05/ | Procedure | [facility] | | | | 2019 | Pass | [facility] | | | | | | and Healing Surgery | | | | | | Center Admitting | | | | | | Desk Located on the | | | | | | 4th floor [address] | | | | | | [address], | | | | | | [place] [address] | | | +--------+ + + + [...]
--- OUTSIDE RECORDS SUMMARY | ~2020-05-29 | XMS | Encounter Summary ---
Demographics + + + | Address | [address] | | | [place] [address] | + + + | Home Phone [...] Providers + +------+ + | Care Banana Handler Name | Role | Phone | [...] | | 2016 | | Center at [facility] [address] | MD Melissa | | | | | [address] [place] | | | | | | for Health and | | | | | | Healing, Building 2 | | | | | | [place], [place] | | | | | | [address] | | | | | | [phone] | | | +--------+ + + + [...]
--- OUTSIDE RECORDS SUMMARY | ~2020-05-29 | XMS | Encounter Summary ---
Demographics + + + | Address | [address] | | | [place] [address] | + + + | Home Phone [...] Providers + +------+ + | Care Relay Operator Name | Role | Phone | [...] | | 2017 | | Center at [facility] [address] | | Review | | | | [address] [facility] | | | | | | for Health and | | | | | | [facility] | | | | | | [place], [place] | | | | | | [address] | | | | | | [phone] | | | +--------+ + + + [...]
--- OUTSIDE RECORDS SUMMARY | ~2020-05-29 | XMS | Encounter Summary ---
Demographics + + + | Address | [address] | | | [place] [address] | + + + | Home Phone [...] Providers + +------+ + | Care Studio Operations Engineer In Charge Name | Role | Phone | + [...] + + | 10/06/ | Telephone | [facility] Comprehensive | Yosef Kenney MD | Dermatitis | | 2018 | | Pain Center at | [address] | | | | | [facility] | [facility] | | | | | [address] | [place] [address] | | | | | [facility] | [phone] | | | | | and Healing, | | | | | | [facility] | | | | | | [place], [place] | | | | | | [address] | | | | | | [phone] | | | +--------+ + + + [...]
--- OUTSIDE RECORDS SUMMARY | ~2020-05-29 | XMS | Encounter Summary ---
Demographics + + + | Address | [address] | | | [place] [address] | + + + | Home Phone [...] Team Providers + +------+ + | Care Boring And Filling Machine Operator Name | Role | Phone [...] Rd | | | | | | [place], [place] | | | | | | [address] | | | +--------+ + + + [...]
--- OUTSIDE RECORDS SUMMARY | ~2020-05-29 | XMS | Encounter Summary ---
Demographics + + + | Address | [address] | | | [place] [address] | + + + | Home Phone [...] Providers + +------+ + | Care Field Research Assistant Name | Role | Phone [...] | | | Spasticity | Ave | [facility] [place] | | | | | Procedures | [facility] [place] | [address] | | | | | CONSULT TO | [address] | Phone: | | | | | PAIN | Phone: | [phone] | | | | | MANAGEMENT | [phone] | Fax: | | | | | | Fax: | [phone] | | | | | | [phone] | | +--------+---------+ + + + + [...] | | MD Celia | MD Brendan [address] | | | | | Fibromyalgia | [address] | [address]ONA [address]le | | | | | Spasticity | Ave | [place] | | | | | Epigastric | [place], [place] | Rd [place], | | | | | pain | [address] | [place] | | | | | Procedures | Phone: | [address] | | | | | REQUEST TO | [phone] | Phone: | | | | | SURGERY | Fax: | [phone] | | | | | MEDICAL PATHOLOGIST | [phone] | Fax: | | | | | [place] INJECT | | [phone] | | | | | TRIGGER | | | | | | | POINT, 1 [place] | | | | | | | 2 [place] INJECT | | | | | | [...] Pain Medicine | Diagnoses | Chasity, | Perforator Typist Chh1 | | | | / Pain | Abdominal | MD Kenny | [address] | | | | Management | pain, | [address] | [address] Center | | | | | unspecified | [facility] | for Health | | | | | location | Rd | and Healing, | | | | | Procedures | [place], [place] | Building | | | | | CONSULT TO | [address] | 1,15th Floor | | | | | PAIN | | [place], [place] | | | | | MANAGEMENT | | [address] | | | | | | | Phone: | | | | | | | [phone] | | | | | | | Fax: | | | | | | | [phone] | +--------+--------+ + + + + Encounter Details +--------+---------+ + + + | Date | Type | Department | Care Team | Description | +--------+---------+ + + + | 10/11/ | Office | [facility] Comprehensive | Vern Robertson, | Epigastric pain | | 2017 | Visit | Pain Center at | ANIMAL CARE TAKER [address] | (Primary Dx); | | | | [facility] | [place], [place] | Spasticity | | | | [address] | [address] | | | | | [place] for Health | [phone] | | | | | and Healing, | | | | | | Building | | | | | | Floor [place], [place] | | | | | | [address] | | | | | | [phone] | | | +--------+---------+ + + + [...] true warrior! * Please sign up for GetQuikHART. This is the best way to communicate with me. It will save you time in the long run. The procedure you discussed with your doctor is called: Trigger point injection of abdomina l scar. Please make sure this is scheduled with the Bee[facility] Farmer. PRE-PROCEDURE INSTRUCTIONS 1. Please bring a cryogenic transport driver with you as we may give you medications that impair your ability to drive. This is necessary even if you do not receive sedation. You may take a taxi or ri [employer] if you are accompanied by a responsible [...] blood thinning medications (other than aspirin), [facility] doctor who is doing your procedure will communicate with the provider who is prescribing y our anticoagulant therapy. If you do not have clear instructions on what to do with your an ticoagulant by 2 weeks before your procedure, please contact [facility] to cl arify your instructions. The phone number for questions or concerns is [phone]. * Consider Lidoderm topical or compound prescription [...] muscle hyper tonicity. * Consider increasing your Hamlin 3 fats. Hamlin-3 fats are precursors to mediators of inflammation called prostaglandins. (In fact, t hat is how anti-inflammatory painkillers work, by manipulating prostaglandins.) Good sources include wild caught Alaskan salmon, sardines and anchovies, which are all high in healthy o cah-3s while being low in contaminants such as mercury. You may also take a supplement of f huma oil or krill oil if approved by your PCP or chainstitch hemmer. * Eliminate High Fructose [place] Syrup and Sugar from your diet as [...] review treatment plan. * Follow up with [facility] Center as needed. It [...] whose last appoi ntment at the [facility] was 07/11/17 with TERESA Calrk, for a clinic visit. At that time [...] She reports multiple diagnostic tests conducted at [facility] in [place], [place] including barium swallow and Hydrogen breath [...] Torodol shots: only form of symptom relief. [facility] Brief Pain Inventory: (ten= worst possible pain [...] Hemroidectomy Trial spinal cord stimulator leads 08/02/2012 [facility], Surgeon: Janak Riojas MD Cholecystectomy Appendectomy [...] History Social History Narrative Single. Goes to [employer] with a light load. Has been working at [employer] can' t work on crDiarizeches. Has roommates. Allergies Allergen Reactions Morphine Anaphylaxis [...] by physician. Concentration is 150mg/mL. Compounded by [facility] ) LAMOTRIGINE 200 MG TABLET Take [...] GRAM-5.86 GRAM SOLUTION Take as directed by [facility] Digestive [facility]- 2 gallon bowel prep POLYETHYLENE GLYCOL [...] review treatment plan. * Follow up with [facility] as needed. IGuillermo am scribing for Vern Robertson NP on 10/11/2017 I have reviewed and verified the above scribed note of my visit with this patient as record ed by Guillermo Hope. Vern Robertson NP [facility] F[facility] [address] Mail Code: Ch15p [place] [address] documented in this e ncounter Plan of Treatment Not on filedocumented as of this encounter Visit Diagnoses + + | Diagnosis | + + | Epigastric pain - Primary Abdominal pain, epigastric | + + | Spasticity Abnormal involuntary movements | + + documented in this encounter
--- OUTSIDE RECORDS SUMMARY | ~2020-05-29 | XMS | Encounter Summary ---
Demographics + + + | Address | [address] | | | [place] [address] | + + + | Home Phone [...] Team Providers + +------+ + | Care Carbon Paper Coating Machine Setter Name | Role | Phone | [...] | 2015 | | Center at [facility] [address] | MD Melissa | | | | | [address] [facility] | | | | | | for Health and | | | | | | [facility], Building 2 | | | | | | [place], [place] | | | | | | [address] | | | | | | [phone] | | | +--------+ + + + [...]
--- OUTSIDE RECORDS SUMMARY | ~2020-05-29 | XMS | Encounter Summary ---
Demographics + + + | Address | [address] | | | [place] [address] | + + + | Home Phone [...] Team Providers + +------+ + | Care Gluing Machine Feeder Name | Role | Phone | + +------+ + | Allerga Gandhi | PCP | | + +------+ [...] on | Pain Center at | [address] [facility] | evaluation (No | | | | [facility] | [facility] [id number] | evidence of drug | | | | [address] | [place], [place] | abuse) | | | | [facility] | [address] | | | | | and Healing, | [phone] | | | | | [facility] | | | | | | Floor [place], [place] | | | | | | [address] | | | | | | [phone] | | | +--------+ + + + [...]
--- OUTSIDE RECORDS SUMMARY | ~2020-05-29 | XMS | Clinical Summary ---
Demographics + + + | Address | [address] | | | [place] [address] | + + + | Home Phone | | + + + | Preferred Language | Unknown | + + + | Marital Status | Single | + + + | Methodist Affiliation | 1073 | + + + | Race | Unknown | + + + | Ethnic Group | Unknown | + + + Author + + + | Author | [facility] | | | and [place] | + + + | Organization | [facility] | | | and [place] | [...] | [place] | | | | | [address] | | + + + + + | Bryant Farah | ECON | Unknown | | + + + + + Care Team Providers + +------+ + | Care Sawmill Supervisor Name | Role | Phone | [...] +--------+ +---------+--------+ | MEDICARE | MEDICA | [id number] | 07/15/20 | [phone] | | Medica | | | RE | | 15-Pre | 5 | | re | | | PART A | | sent | | | | | | AND B | | | | | | + +--------+ +--------+ +---------+--------+ | MEDICAID [place] | MEDICA | [id number] | | [phone] | | Medica | [...] | 1989 | [phone] | [place] [address] | | | evita | | | 6 (Home) | | + +--------+ +--------+ + +"
--- OUTSIDE RECORDS SUMMARY | ~2020-05-29 | XMS | Encounter Summary ---
Demographics + + + | Address | [address] | | | [place] [address] | + + + | Home Phone [...] Team Providers + +------+ + | Care Colorectal Surgeon Name | Role | Phone | + [...] | | syndrome | [place] | [facility] | | | | | type 1 of | Rd | Rd [place], | | | | | left lower | [place], [place] | [place] | | | | | extremity | [address] | [address] | | | | | Procedures | Phone: | Phone: | | | | | REQUEST TO | [phone] | [phone] | | | | | SURGERY | Fax: | Fax: | | | | | GED TEACHER | [phone] | [phone] | +--------+---------+ + + + + Encounter Details +--------+---------+ + + + | Date | Type | Department | Care Team | Description | +--------+---------+ + + + | 09/28/ | Office | [facility] Comprehensive | Yun Frey, TRANSLATOR INTERPRETER | Complex regional | | 2018 | Visit | Pain Center at | [address] | pain syndrome type 1 | | | | [place] | [place], [place] | of left lower | | | | [address] | [address] | extremity (Primary | | | | Center for [facility] | [phone] | Dx); Arthralgia of | | | | and Healing, | | left lower leg | | | | | | | | | | [place], [place] | | | | | | [address] | | | | | | [phone] | | | +--------+---------+ + + + [...] Dr. Sanchez on 10/02/2018. -Please contact the [employer]'s rep if you have any further question [...] PM PST September 28, 2018 Tracie Farah [id number] [facility] Center Return Visit Chief [...] and a pain drawing which I reviewed. [facility] Questionnaire Follow-up Patient 10/10/2017 Please describe [...] PROCEDURE: DRG Spinal Cord Stimuation Trial with [employer]. [email or web address] system LEVEL/LATERALITY: left L4, L5. Till date, [...] turned up to 7%. After seeing th ict sales representative today and killian ing adjustments, [...] Trial spinal cord stimulator leads 08/02/2012 [facility], Surgeon: Janak Riojas MD Cholecystectomy Appendectomy Other [...] the vein (IV) every eight hour s. 9551-9001-98 COMPOUNDED MED RX CONTROLLED (SEE ADMIN INSTRUCT [...] by physician. Concentration is 150mg/mL. Compounded by [facility] ) KETOROLAC IM Inject into the [...] (IV) every twel ve hours as needed. 7497-9995-83 ONDANSETRON 4 MG DISINTEGRATING TABLET Dissolve 1 tablet in mouth every twelve hours as nee ded. PANTOPRAZOLE 40 MG TABLET,DELAYED RELEASE Take 40 mg by mouth once daily. PEG 3350-ELECTROLYTES 236 GRAM-22.74 GRAM-6.74 GRAM-5.86 GRAM SOLUTION Take as directed by [facility] Digestive [facility]- 2 gallon bowel prep POLYETHYLENE [...] been given programming opti ons by the [employer]'s device ict sales representative, Michele. At this time, there is no complication from the DRG trial. Recommendations/Plan: 1. Recommend to keep her appointment with Dr. Sanchez on 10/02/2018. 2. To contact the [employer]'s rep if she has any further question on programming. 09/28/2018: I, Dayana Ivan, am functioning as a medical reimbursement manager for Yun Frey NP. I have reviewed and verified the above scribed note of my visit with this patient as record ed by Ms. Dayana Ivan. Jeanine Frey (Mr.) MSN, ACNP- Nurse Practitioner [facility] [address] [place] [id number] documented in this enco unter Plan of [...]
--- OUTSIDE RECORDS SUMMARY | ~2020-05-29 | XMS | Encounter Summary ---
Demographics + + + | Address | [address] | | | [place] [address] | + + + | Home Phone [...] + +------+ + | Care Fine Arts Model Name | Role | Phone | [...] Vomiting; | | 2016 | | Center [place] [address] [address] | | Constipation; | | | | [address] | | Abdominal pain | | | | for Health and | | | | | | Healing, Building 2 | | | | | | [place], [place] | | | | | | [address] | | | | | | [phone] | | | +--------+ + + + [...]
--- OUTSIDE RECORDS SUMMARY | ~2020-05-29 | XMS | Encounter Summary ---
Demographics + + + | Address | [address] | | | [place] [address] | + + + | Home Phone [...] Providers + +------+ + | Care Cook Larder Name | Role | Phone | + [...] Rd | | | | | | [place], [place] | | | | | | [address] | | | +--------+ + + + [...]
--- OUTSIDE RECORDS SUMMARY | ~2020-05-29 | XMS | Encounter Summary ---
Demographics + + + | Address | [address] | | | [place] [address] | + + + | Home Phone [...] Team Providers + +------+ + | Care Remnants Cutter Name | Role | Phone | [...] + + | 08/03/ | Refill | [facility] | Alex Sanchez, | Refill Request | | 2018 | | Pain Center at | ,PhD [address] [facility] | (ketamine) | | | | [facility] | [facility] | | | | | [address] | [place], [place] | | | | | [facility] | [address] | | | | | and Martina, | [phone] | | | | | [facility] | | | | | | Floor [place], [place] | | | | | | [address] | | | | | | [phone] | | | +--------+--------+ + + + [...]
--- OUTSIDE RECORDS SUMMARY | ~2020-05-29 | XMS | Encounter Summary ---
Demographics + + + | Address | [address] | | | [place] [address] | + + + | Home Phone [...] Team Providers + +------+ + | Care Polysomnographer Name | Role | Phone | + [...] | | Complex | Alex Alba, | [facility] [address] | | | | | regional | ,PhD [address] | Pavilion | | | | | pain | [address] | | | | | syndrome | [address] | [address], | | | | | type 1 of | Rd | Basement | | | | | left lower | [place], [place] | [place], [place] | | | | | extremity | [address] | [address] | | | | | Muscle pain | Phone: | Phone: | | | | | Procedures | [phone] | [phone] | | | | | NM BONE | Fax: | Fax: | | | | | &/OR JOINT | [phone] | [phone] | | | | | IMAGING | [...] | | | | | | | [place] BONE | | | | | | | IMAGING, | | | | | | | LIMITED AREA | | | | | | | [place] BONE | | | | | | [...] | | 2018 | Encounter | at [facility] [address] | ,PhD [address] [facility] | | | | | [address] | [address] | | | | | [address], | [place], [place] | | | | | [facility], | [address] | | | | | [place] [address] | [phone] | | | | | [phone] | | | +--------+ + + + [...]
--- OUTSIDE RECORDS SUMMARY | ~2020-05-29 | XMS | Encounter Summary ---
Demographics + + + | Address | [address] | | | [place] [address] | + + + | Home Phone [...] Providers + +------+ + | Care Treating And Pumping Supervisor Name | Role | Phone | [...] Medication Question | | 2016 | | [place] [address] [address] | | | | | | [address] [facility] | | | | | | for Health and | | | | | | Healing, [facility] 2 | | | | | | [place], [place] | | | | | | [address] | | | | | | [phone] | | | +--------+ + + + [...]
--- OUTSIDE RECORDS SUMMARY | ~2020-05-29 | XMS | Encounter Summary ---
Demographics + + + | Address | [address] | | | [place] [address] [...] Team Providers + +------+ + | Care Blast Furnace Helper Name | Role | Phone | + +------+ + | Justo Vazquez MD | PCP | | + +------+ + Encounter Details +--------+ + + + + | Date | Type | Department | Care Team | Description | +--------+ + + + + | 05/18/ | Telephone | [facility] | Alex Sanchez, | | | 2019 | | Pain Center at | ,PhD [address] | | | | | [facility] | [address] | | | | | [address] | [place], [place] | | | | | [place] [facility] | [address] | | | | | and Healing, | [phone] | | | | | | | | | | | Floor [place], [place] | | | | | | [address] | | | | | | [phone] | | | +--------+ + + + [...]
--- OUTSIDE RECORDS SUMMARY | ~2020-05-29 | XMS | Encounter Summary ---
Demographics + + + | Address | [address] | | | [place] [address] | + + + | Home Phone [...] Providers + +------+ + | Care Director Intelligence Analysis Programs Name | Role | Phone | + [...] [facility] | [facility], | | | | | [address] | [place] [address] | | | | | [facility] | [phone] | | | | | and Healing, | | | | | | [facility] [address] | | | | | | [place], [place] | | | | | | [address] | | | | | | [phone] | | | +--------+ + + + [...]
--- OUTSIDE RECORDS SUMMARY | ~2020-05-29 | XMS | Encounter Summary ---
Demographics + + + | Address | [address] | | | [place] [address] | + + + | Home Phone [...] Team Providers + +------+ + | Care Hog Scalder Name | Role | Phone | [...] | | | Center for Health | [place], [place] | | | | | and Healing, | [address] | | | | | | [phone] | | | | | Floor [place], [place] | | | | | | [address] | | | | | | [phone] | | | +--------+ + + + [...]
--- OUTSIDE RECORDS SUMMARY | ~2020-05-29 | XMS | Encounter Summary ---
Demographics + + + | Address | [address] | | | [place] [address] | + + + | Home Phone [...] Providers + +------+ + | Care Film Inspector Name | Role | Phone | [...] + | 12/05/ | Hospital | [facility] | Alex Sanchez, | | | 2019 | Encounter | STAY [address] | ,PhD [address] [facility] | | | | | Courtney Mailcode: [facility] | [address] | | | | | [facility] | [place], [place] | | | | | Health and [facility], | [address] | | | | | [place] [address] | [phone] | | | | | [place], [place] | | | | | | [address] | | | | | | [phone] | | | +--------+ + + + [...] s/p successful DRG trial lead system with DAXKO System on 09/25/2018. No changes in H&P, [...] OPERATIVE NOTE Date: December 05, 2018 Location: [facility] [place] | | | Tracie Farah [id number] :1990, presents to clinic | | | for: Dorsal root ganglion stimulator implant PROCEDURE: Dorsal | | | root ganglion stimulator implant PRE-OPERATIVE DIAGNOSIS: Complex | | | regional Pain syndrome type 1 of left lower extremity | | | POST-OPERATIVE DIAGNOSIS: Complex regional Pain syndrome type 1 of | | | left lower extremity ATTENDING PHYSICIAN: Alex Sanchez | | | SPECIAL PROGRAMS DIRECTOR: Arben Valerio MD ANESTHESIA: sedation by IVIS Cole | | | Carmen, supervised by celluloid trimmer Ilir Valdes. | | | FINDINGS: [...] sedation. Ms. Farah was escorted to the [facility] | | | [place], where she [...] the | | | [facility] access services representative. A test stimulation was performed [...] recovery. Images were saved, and sent to [employer]. | | | Alex Sanchez (attending) was present for the entire procedure. | | | Arben Valerio MD I was present for the entire procedure | | | (spinal cord stimulator implantation with DRG leads at left L4 and | | | L5) and all bocanegra elements of this visit. I reviewed the | | | documentation of the other MEDICAL SECRETARY RECEPTIONIST providers and concur with Dr. | | | Iman's findings. I edited his note. Alex Sanchez, | | | ,PhD Gate Supervisor Anesthesiology and Pain Management | | | [facility] | | + + + [...] + | JOSE ANTONIO MIN | [address] [facility] [address] | [place] [address] | | | OF CARE TESTS | [...]
--- OUTSIDE RECORDS SUMMARY | ~2020-05-29 | XMS | Encounter Summary ---
Demographics + + + | Address | [address] | | | [place] [address] | + + + | Home Phone [...] Providers + +------+ + | Care Paper Bag Making Machinist Name | Role | Phone | [...] ogy | | Ava Torres, | Ch[address] [address] | | | | | Constipation | [address] | [address] | | | | | , | [address] | [place] for | | | | | unspecified | [address] | Health and | | | | | constipation | [facility] [place] | Healing, | | | | | type | [address] | Building [address] | | | | | Procedures | | [place], [place] | | | | | CONSULT TO | | [address] | | | | | GI PROCEDURE | | Phone: | | | | | UNIT: | | [phone] | | | | | ANORECTAL | | Fax: | | | | | MANOMETRY | | [phone] | | | | | [place] ANAL | | | | | | | PRESSURE | | | | | | | RECORD | | | +--------+--------+ + + + + Encounter Details +--------+ + + + + | Date | Type | Department | Care Team | Description | +--------+ + + + + | 09/14/ | Hospital | [facility] | Nurse, Gip [address] | | | 2016 | Encounter | [facility] [address] | [address] [facility] | | | | | [address] [facility] for | Road [place], [place] | | | | | Health and Healing, | [address] | | | | | Building 2 | | | | | | [place], [place] | | | | | | [address] | | | | | | [phone] | | | +--------+ + + + [...]
--- OUTSIDE RECORDS SUMMARY | ~2020-05-29 | XMS | Encounter Summary ---
Demographics + + + | Address | [address] | | | [place] [address] | + + + | Home Phone [...] Team Providers + +------+ + | Care Gill Net Stringer Name | Role | Phone | + +------+ + | Justo Vazquez MD | PCP | | + +------+ + Encounter Details +--------+------+ + + + | Date | Type | Department | Care Team | Description | +--------+------+ + + + | 12/14/ | Lab | Laboratory at [facility] | | Complex regional | | 2018 | | [address] | | pain syndrome type 1 | | | | Center for [facility] | | of left lower | | | | and Healing, | | extremity; Muscle | | | | Building 2 | | pain | | | | [place], [place] | | | | | | [address] | | | | | | [phone] | | | +--------+------+ + + + [...] + + + + + | [facility] | [address] [facility] | [place] [address] | | | LILLIAN CROSS | GUILLERMO [...]
--- OUTSIDE RECORDS SUMMARY | ~2020-05-29 | XMS | Encounter Summary ---
Demographics + + + | Address | [address] | | | [place] [address] | + + + | Home Phone [...] Team Providers + +------+ + | Care Merchandiser Retail Representative Name | Role | Phone | [...] | pain, | [address] | [address] | | | | | unspecified | [address] | [address] | | | | | abdominal | Rd | [place], [place] | | | | | location | [facility] [place] | [address] | | | | | Pain of | [address] | Phone: | | | | | upper | | [phone] | | | | | abdomen | | Fax: | | | | | Complex | | [phone] | | | | | regional | [...] | | | | | | | RUG BACKING STENCILER | | | +--------+---------+ + + + + Reason for Visit + + + | Reason | Comments | + + + | Procedure | | + + + Encounter Details +--------+ + + + + | Date | Type | Department | Care Team | Description | +--------+ + + + + | 08/30/ | Telephone | [facility] | Ilene Bright, | Procedure | | 2017 | | Pain Center at | PARACHUTE MARKER [address] | | | | | [facility] | [place], [place] | | | | | [address] | [address] | | | | | [facility] | [phone] | | | | | and Healing, | | | | | | Building | | | | | | Floor [place], [place] | | | | | | [address] | | | | | | [phone] | | | +--------+ + + + [...]
--- OUTSIDE RECORDS SUMMARY | ~2020-05-29 | XMS | Encounter Summary ---
Demographics + + + | Address | [address] | | | [place] [address] | + + + | Home Phone [...] Team Providers + +------+ + | Care Piece Marker Small Arms Name | Role | Phone | + [...] | CRPS | Dale Martinez MD | [facility] [address] | | | | | (complex | [address] | Pavilion | | | | | regional | [address] | [address] | | | | | pain | Mailstop | [address], | | | | | syndrome), | [id number] | Basement | | | | | lower limb | [place], [place] | [place], [place] | | | | | Procedures | [address] | [address] | | | | | [place] BONE &/[place] | Phone: | Phone: | | | | | JOINT | [phone] | [phone] | | | | | IMAGING 3 | Fax: | Fax: | | | | | PHASE | [phone] | [phone] | +--------+--------+ + + + + Consult [...] | | | regional | [address] | [address] | | | | | pain | FAMILY | Mailstop | | | | | syndrome), | MEDICINE P | [address] | | | | | lower limb | [address] | [place], [place] | | | | | Gait | [place], | [address] | | | | | disturbance | [place] [address] | Phone: | | | | | Muscle pain | Phone: | [phone] | | | | | Procedures | [phone] | Fax: | | | | | REQUEST TO | Fax: | [phone] | | | | | SURGERY | [phone] | | | | | | NICK SETTER | | | +--------+--------+ + + + + Consultation (Routine) +--------+--------+ + + + + | Status | Reason | Specialty | Diagnoses / | Referred By | Referred To | | | | | Procedures | Contact | Contact | +--------+--------+ + + + + | Closed | | Psychology / | Diagnoses | Beulah, | Network Security Engineer Psych | | | | Pain | CRPS | Dale Martinez MD | Ch[facility] [address] | | | | Management | (complex | [address] | | | | | regional | [address] | Center for | | | | | pain | Mailstop | Health and | | | | | syndrome), | [id number] | Healing, | | | | | lower limb | [place], [place] | Building | | | | | Gait | [address] | 1,15th Floor | | | | | disturbance | Phone: | [place], [place] | | | | | Muscle pain | [phone] | [address] | | | | | Procedures | Fax: | Phone: | | | | | CONSULT TO | [phone] | [phone] | | | | | PAIN CENTER | | Fax: | | | | | | | [phone] | +--------+--------+ + + + + Physical Therapy (Routine) +--------+--------+ + + + + | Status | Reason | Specialty | Diagnoses / | Referred By | Referred To | | | | | Procedures | Contact | Contact | +--------+--------+ + + + + | Closed | | Physical | Diagnoses | Beulah, | Edu Pt Network Security Engineer | | | | Therapy | CRPS | Dale Martinez MD | [address] [address] | | | | | (complex | [address] | | | | | regional | [address] | Mailcode: | | | | | pain | Mailstop | [facility] | | | | | syndrome), | [address]167 | for Health | | | | | lower limb | [place], [place] | and Healing, | | | | | Gait | [address] | [facility] 1 | | | | | disturbance | Phone: | [place], [place] | | | | | Muscle pain | [phone] | [address] | | | | | Procedures | Fax: | Phone: | | | | | PHYSICAL | [phone] | [phone] | | | | | THERAPY | [...] | | | 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 | FAMILY | Mailstop | | | | | of lower | MEDICINE P | 252196 | | | | | limb | [address] | [place], [place] | | | | | | [place], | [address] | | | | | | [place] [address] | Phone: | | | | | | Phone: | [phone] | | | | | | [phone] | Fax: | | | | | | Fax: | [phone] | | | | | | [phone] | | +--------+--------+ + + + + Encounter Details +--------+---------+ + + + | Date | Type | Department | Care Team | Description | +--------+---------+ + + + | 02/13/ | Office | [place] [facility] | Dale Cantu, | CRPS (complex | | 2011 | Visit | Pain Center at | MD [address] | regional pain | | | | [facility] | [facility] [id number] | syndrome), lower | | | | [address] | [place], [place] | limb; Gait | | | | Center for Health | [address] | disturbance; Muscle | | | | and Healing, | [phone] | pain; Adjustment | | | | | | reaction | | | | Floor [place], [place] | | | | | | [address] | | | | | | [phone] | | | +--------+---------+ + + + [...] Diagnostic evaluation: Records from CRPS program at [facility]. Suggest three phase bone s [...] here at the [facility]. 2.2 Physical therapy can reduce pain and improve functional status. Suggest Guillermo Sanon . 3. Medication suggestions: 3.1 Continue titrating up duloxetine. 3.2 As for any patient being managed with chronic opioids, we do recommend that the patien t have a signed [facility] Material [...] sintia sure this is scheduled with the Radiology Receptionist. Please bring a truck driver rubbish collector with you. We may give you medications that make you drowsy or otherw ise unsafe to drive. If you do not have a truck driver rubbish collector, we will not be able to do [...] PLEASE CONTACT THE COMPREHENSIVE PAIN CENTER AT [phone] ([phone]) FOR QUESTIONS OR IF YOU NEED TO [...] pain management consultation by BJORN Mi [place] [facility] [address] [place] [address] Reason for visit Chief Complaint Patient presents with Pain in left leg Ankle pain left History of Present Illness: Tracie Farah is a 21 year old female with pain locate d in left lower extremity. She has been diagnosed with CRPS. She is referred to [facility] for consultation regarding this ongoing pain problem with the following spec [facility] issues to be addressed: Other options for [...] by several orthopedic surgeons, Dr. Charles in [place], physical therapy, Occupational Therapy. Diagnostic and [...] no pain relief. Admitted to the inpatient [facility] program for 1 month in the [...] entin, pregabalin, topiramate, tramadol, multiple opioids. Current Arion about 6-8/day. St arting duloxetine, at 30 mg/day. She feels that the most effective medication treatments ar e or have been opioids. As a result of her pain, Ms. Farah notes multiple changes in her life, including: "I don 't have a life, can't work, can't go to school." Poor mood, sleep, activity. Using crutche s recently because of pain flare. TELEMETRY TECHNICIAN Brief Pain Inventory: (ten= worst possible [...] History Social History Narrative Single. Goes to [employer] with a light load. Has been working at [employer], can' t work on [employer]. Has roommates. Current Medication List 02/14/12 9:50 [...] As part of today's visit the [facility] new patient questionnaire was [...] rambo, the pediatric inpatient pain program at [facility], and two attempted lumbar sympathetic [...] CRPS patients (Loretta Rousseau, et al. Katrina Bulb Assembler Med. 2010;152: 152-158). Other treatment options for [...] [facility]: [facility] Suggest three ph ase bone [...] employed by the psychologists here at the [facility]. ORDER PLACED 2.2 Physical therapy can reduce pain and improve functional status. Suggest Guillermo Sanon . ORDER PLACED 3. Medication suggestions: 3.1 Continue titrating up duloxetine. 3.2 As for any patient being managed with chronic opioids, we do recommend that the patien t have a signed [facility] Material [...] her PCP, BJORN Villanueva. DALE CANTU MD Downstairs Maid, [facility] Acetylene Torch Solderer, Pain Medicine Professor, Anesthesiology & Perioperative Medicine [...]
--- OUTSIDE RECORDS SUMMARY | ~2020-05-29 | XMS | Encounter Summary ---
Demographics + + + | Address | [address] | | | [place] [address] | + + + | Home Phone [...] Providers + +------+ + | Care Truck Loader Name | Role | Phone | [...] | 2015 | | Center at [facility] [address] | MD Melissa | | | | | [address] [facility] | | | | | | for Health and | | | | | | Healing, Building 2 | | | | | | [place], [place] | | | | | | [address] | | | | | | [phone] | | | +--------+ + + + [...]
--- OUTSIDE RECORDS SUMMARY | ~2020-05-29 | XMS | Encounter Summary ---
Demographics + + + | Address | [address] | | | [place] [address] | + + + | Home Phone [...] Team Providers + +------+ + | Care Church Business Administrator Name | Role | Phone | + +------+ + | Justo Vazquez MD | PCP | | + +------+ + Encounter Details +--------+ + + + + | Date | Type | Department | Care Team | Description | +--------+ + + + + | 03/11/ | Telephone | [facility] | Zeeshan Mahoney MD | | | 2019 | | Pain Center at | [address] | | | | | [facility] | [facility], | | | | | [address] | [place] [address] | | | | | [place] for [facility] | [phone] | | | | | and Healing, | | | | | | | | | | | | [place], [place] | | | | | | [address] | | | | | | [phone] | | | +--------+ + + + [...]
--- OUTSIDE RECORDS SUMMARY | ~2020-05-29 | XMS | Encounter Summary ---
Demographics + + + | Address | [address] | | | [place] [address] | + + + | Home Phone [...] Providers + +------+ + | Care Fashion Photographer Name | Role | Phone | + +------+ + | Justo Vazquez MD | PCP | | + +------+ + Encounter Details +--------+------+ + + + | Date | Type | Department | Care Team | Description | +--------+------+ + + + | 04/23/ | Lab | Laboratory at [facility] | | Other chronic pain ; | | 2018 | | [address] | | Complex regional | | | | Center for [facility] | | pain syndrome type 1 | | | | and Healing, | | of left lower | | | | Building 2 | | extremity | | | | [place], [place] | | | | | | [address] | | | | | | [phone] | | | +--------+------+ + + + [...] LABORATORY | | Barbiturates >=200 ng/mL | [facility] [place] | | Benzodiazepine >=200 ng/mL Cocaine [...] | KEVIN SHAH | [address] | [place] [address] | | | SERVICES, LILLIAN | GUILLERMO [...]
--- OUTSIDE RECORDS SUMMARY | ~2020-05-29 | XMS | Encounter Summary ---
Demographics + + + | Address | [address] | | | [place] [address] | + + + | Home Phone [...] Providers + +------+ + | Care Animal Park Code Enforcement Officer Name | Role | Phone [...] | 2016 | Encounter | Center at [facility] [address] | | results | | | | [facility] | | | | | | for Health and | | | | | | Healing, Building [address] | | | | | | [place], [place] | | | | | | [address] | | | | | | [phone] | | | +--------+ + + + [...]
--- OUTSIDE RECORDS SUMMARY | ~2020-05-29 | XMS | Encounter Summary ---
Demographics + + + | Address | [address] | | | [place] [address] | + + + | Home Phone [...] Team Providers + +------+ + | Care Satin Finisher Name | Role | Phone | + +------+ + | Justo Vazquez MD | PCP | | + +------+ + Encounter Details +--------+ + + + + | Date | Type | Department | Care Team | Description | +--------+ + + + + | 06/04/ | Documentati | [facility] Comprehensive | Alex Sanchez, | | | 2019 | on | Pain Center at | ,PhD [address] | | | | | [facility] | [address] | | | | | [address] | [place], [place] | | | | | [place] for [facility] | [address] | | | | | and Healing, | [phone] | | | | | | | | | | | Floor [place], [place] | | | | | | [address] | | | | | | [phone] | | | +--------+ + + + [...]
--- OUTSIDE RECORDS SUMMARY | ~2020-05-29 | XMS | Encounter Summary ---
Demographics + + + | Address | [address] | | | [place] [address] | + + + | Home Phone [...] Providers + +------+ + | Care Supervisor Hot [employer] Mill Name | Role | Phone | [...] | | Complex | [place], | [facility] [address] | | | | | regional | ,PhD [address] | Pavilion | | | | | pain | [address] | [address] | | | | | syndrome | [address] | [address], | | | | | type 1 of | Rd | Basement | | | | | left lower | [place], [place] | [place], [place] | | | | | extremity | [address] | [address] | | | | | Muscle pain | Phone: | Phone: | | | | | Procedures | [phone] | [phone] | | | | | NM BONE | Fax: | Fax: | | | | | &/OR JOINT | [phone] | [phone] | | | | | IMAGING | [...] | | | | | | ND BONE | | | | | | | IMAGING, | | | | | | | LIMITED AREA | | | | | | | ND BONE | | | | | | | IMAGING | | | | | | | (SPECT) | | | +--------+--------+ + + + + Encounter Details +--------+ + + + + | Date | Type | Department | Care Team | Description | +--------+ + + + + | 12/27/ | Ancillary | [facility] Comprehensive | Alex Sanchez, | | | 2018 | Orders | Pain Center at | ,PhD [address] [facility] | | | | | [facility] | [address] | | | | | [address] | [place], [place] | | | | | [facility] | [address] | | | | | and Martina, | [phone] | | | | | [facility] | | | | | | Floor [place], [place] | | | | | | [address] | | | | | | [phone] | | | +--------+ + + + [...] Note | + + | Service Account, DataPad Res In Interface - 12/28/2017 11:43 AM [...]
--- OUTSIDE RECORDS SUMMARY | ~2020-05-29 | XMS | Encounter Summary ---
Demographics + + + | Address | [address] | | | [place] [address] [...] Providers + +------+ + | Care Vp Mobile Products Name | Role | Phone | + [...] | CRPS | Janak Martinez MD | [facility] [address] | | | | | (complex | [address] | Pavilion | | | | | regional | [address] | [address] | | | | | pain | Mailstop | [place], | | | | | syndrome), | [id number] | Basement | | | | | lower limb | [place], [place] | [place], [place] | | | | | Procedures | [address] | [address] | | | | | NM BONE &/[place] | Phone: | Phone: | | | | | JOINT | [phone] | [phone] | | | | | IMAGING 3 | Fax: | Fax: | | | | | PHASE | [phone] | [phone] | +--------+--------+ + + + + Encounter Details +--------+ + + + + | Date | Type | Department | Care Team | Description | +--------+ + + + + | 02/13/ | Hospital | Nuclear Medicine | | | | 2011 | Encounter | at [facility] [address] | | | | | | [address] | | | | | | [place], | | | | | | [place], | | | | | | [place] [address] | | | | | | [phone] | | | +--------+ + + + [...]
--- OUTSIDE RECORDS SUMMARY | ~2020-05-29 | XMS | Encounter Summary ---
Demographics + + + | Address | [address] | | | [place] [address] | + + + | Home Phone [...] Team Providers + +------+ + | Care Lamination Inspector Name | Role | Phone | [...] 2016 | | Pain Center at | BREAD ICER [address] | | | | | [facility] | [place], [place] | | | | | [address] | [address] | | | | | [facility] | [phone] | | | | | and Healing, | | | | | | Building , | | | | | | Floor [place], [place] | | | | | | [address] | | | | | | [phone] | | | +--------+ + + + [...]
--- OUTSIDE RECORDS SUMMARY | ~2020-05-29 | XMS | Encounter Summary ---
Demographics + + + | Address | [address] | | | [place] [address] | + + + | Home Phone [...] | Diagnoses | Beulah | Edu Pt Trust Manager | | | | Therapy | CRPS | Janak Martinez MD | Chh1 [address] | | | | | (complex | [address] | | | | | regional | [address] | Mailcode: | | | | | pain | Mailstop | [facility] | | | | | syndrome), | [id number] | for Health | | | | | lower limb | [place], [place] | and Healing, | | | | | Gait | [address] | Building 1 | | | | | disturbance | Phone: | [place], [place] | | | | | Muscle pain | [phone] | [address] | | | | | Procedures | Fax: | Phone: | | | | | PHYSICAL | [phone] | [phone] | | | | | THERAPY | [...] regional pain | | | | [facility] | [place] [address] | syndrome), lower | | | | [address] | [phone] | limb (Primary Dx) | | | | [facility] | | | | | | and Healing, | Specialist, Edu | | | | | Building 1, 1st | Exercise [address] | | | | | Floor [place], [place] | [address] [place], | | | | | [address] | [place] [address] | | | | | [phone] | | | +--------+---------+ + + + [...] might be different f rom the original. [id number] BRODY FARAH Date of : 1990 Start of care: 02/14/2012 Date of onset: 02/14/2012 Referring/Attending Practitioner: Janak Riojas MD . Primary/Referral Diagnosis/ICD-9: 355.71B CRPS (complex regional pain syndrome), lower limb Insurance: Payor: [facility] Plan: BCBS OUT OF STATE Product Type: PP O Service period from: 02/14/2012 to: 08/12/2012 Number visits used/authorized: 02/23 [facility] PHYSICAL THERAPY PROGRESS NOTE SUBJECTIVE: [...] change in their status. Guillermo Sanon MSPT [facility] Outpatient Rehabilitation Services Mailcode: Ch3p [address] [facility], [address] [place] [address] documented in this encounter Plan of Treatment Not on filedocumented as of this encounter Procedures + +--------+ + + + | Procedure Name | Priori | Date/Time | Associated Diagnosis | Comments | | | ty | | | | + +--------+ + + + | [facility] | Routin | 05/24/2012 | CRPS (complex | | | EXERCISES | e | 6:23 PM | regional pain | | | | | PDT | syndrome), lower | | | | | | limb | | + +--------+ + + + | [facility] | Routin | 05/24/2012 | CRPS [...]
--- OUTSIDE RECORDS SUMMARY | ~2020-05-29 | XMS | Encounter Summary ---
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 | regional pain | | | | [facility] | [facility] [address]85336 | syndrome), lower | | | | [address] | [place], [place] | limb; Gait | | | | [place] for [facility] | [address] | disturbance; Sleep | | | | and Healing, | [phone] | disturbance, | | | | Building | | unspecified; | | | | Floor [place], [place] | | Adjustment reaction | | | | [address] | | | | | | [phone] | | | +--------+---------+ + + + [...] CRPS patients (Loretta Rousseau et al. Katrina Landscape Architect And Planner Med. 2010;152:152-158) . Bisphosphonate trial. Typically, I [...] Abraham MD - 09/04/2012 7:45 AM PDT [facility] Pain Center Return Visit with [...] and a pain drawing which I reviewed. [facility] Brief Pain Inventory: (ten= worst possible [...] leads 08/02/2012 [facility], Surgeon: Dale Cantu MD Family [...] The Review of Systems obtained by the [facility] was reviewed. Additional Review of Systems [...] of Pain: 13(1):17-21, 2008). DALE CANTU MD Dumper Mold Cleaner, Comprehensive Pain Center Ic Design Engineer, Pain Medicine Professor, Anesthesiology & [...]
--- OUTSIDE RECORDS SUMMARY | ~2020-05-29 | XMS | Encounter Summary ---
Demographics + + + | Address | [address] | | | [place] [address] | + + + | Home Phone [...] Providers + +------+ + | Care Embroidery Designer Name | Role | Phone | [...] Oliveira | | 2011 | IP | [address] | | House - Approved | | | | [place]iana [place]don[place], | | | | | | [place] [address] | | | +--------+ + + + [...]
--- OUTSIDE RECORDS SUMMARY | ~2020-05-29 | XMS | Encounter Summary ---
Demographics + + + | Address | [address] | | | [place] [address] | + + + | Home Phone [...] Providers + +------+ + | Care Silver Cleaner Name | Role | Phone | + +------+ + | Allegra Gandhi | PCP | | + +------+ + Encounter Details +--------+ + + + + | Date | Type | Department | Care Team | Description | +--------+ + + + + | 03/01/ | Results | [facility] | Janak Riojas, | | | 2011 | Only | Pain Center at | MD [address] [facility] [address] [facility] | | | | | [facility] | [facility] [address] | | | | | [address] | [place], [place] | | | | | Center for Health | [address] | | | | | and Martina, | [phone] | | | | | | | | | | | Floor [place], [place] | | | | | | [address] | | | | | | [phone] | | | +--------+ + + + [...]
--- OUTSIDE RECORDS SUMMARY | ~2020-05-29 | XMS | Encounter Summary ---
Demographics + + + | Address | [address] | | | [place] [address] | + + + | Home Phone [...] Providers + +------+ + | Care Director Call Name | Role | Phone | + +------+ + | Justo Vazquez MD | PCP | | + +------+ + Encounter Details +--------+ + + + + | Date | Type | Department | Care Team | Description | +--------+ + + + + | 09/25/ | Pharmacy | [facility] | | | | 2018 | Visit | & [facility] Pharmacy | | | | | | [address] | | | | | | Mailcode: [place] | | | | | | [facility] and | | | | | | Healing, Building 1 | | | | | | [place], [place] | | | | | | [address] | | | | | | [phone] | | | +--------+ + + + [...]
--- OUTSIDE RECORDS SUMMARY | ~2020-05-29 | XMS | Encounter Summary ---
Demographics + + + | Address | [address] | | | [place] [address] | + + + | Home Phone [...] Providers + +------+ + | Care Drill Runner Name | Role | Phone | [...] ogy | | Ava Torres, | Chh2 [address] | | | | | Constipation | [address] | [address] | | | | | , | [address] | [place] for | | | | | unspecified | [address] | Health and | | | | | constipation | [facility] [place] | Healing, | | | | | type | [address] | Building 2 | | | | | Procedures | | [place], [place] | | | | | CONSULT TO | | [address] | | | | | GI PROCEDURE | | Phone: | | | | | UNIT: | | [phone] | | | | | ANORECTAL | | Fax: | | | | | MANOMETRY | | [phone] | | | | | [place] ANAL | | | | | | [...] | ogy | | [place], | Chh2 [address] | | | | | Gastroparesi | Allegra Nieto, | [address] | | | | | s | [place] [address] | Center for | | | | | | [address] | Health and | | | | | | [place], | Healing, | | | | | | [place] [address] | Building 2 | | | | | | Phone: | [place], [place] | | | | | | [phone] | [address] | | | | | | Fax: | Phone: | | | | | | [phone] | [phone] | | | | | | | Fax: | | | | | | | [phone] | +--------+--------+ + + + + Encounter Details +--------+---------+ + + + | Date | Type | Department | Care Team | Description | +--------+---------+ + + + | 08/10/ | Office | Digestive Health | Ava Carbajal | Constipation, | | 2015 | Visit | Center at [facility] [address] | MD Melissa | unspecified | | | | [facility] | | constipation type | | | | for Health and | | (Primary Dx) | | | | Healing, Building 2 | | | | | | [place], [place] | | | | | | [address] | | | | | | [phone] | | | +--------+---------+ + + + [...] in their attached note. Celia Lin MD Rn Accesscontracts officer Division of Gastroenterology & Hepatology [facility] va Carbajal MD - 08/09/2016 8:40 PM PDT Gastroenterology Initial Clinic Note 08/09/2016 CHIEF COMPLAINT/IDENTIFICATION: "Gastroparesis"-Nausea emesis and abdominal pain -SECOND O GERMAINE Dr. Flores-Radha [facility] PCP: HANDY Villalpando HISTORY OF PRESENT [...] Dr. Flores in [facility] at [facility]. Patient has hx of GERD which was [...] abdomen w contrast done at [facility] on 10/23/15 showing large stool [...] GI MDS: Dr. Nyla Garcia GI Dr[facility] LABS: -increased CRP 06/19/16: Lipase-normal (8) [...] form versus functional syndrome. 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
--- OUTSIDE RECORDS SUMMARY | ~2020-05-29 | XMS | Encounter Summary ---
Demographics + + + | Address | [address] | | | [place] [address] | + + + | Home Phone [...] Providers + +------+ + | Care Valve Inserter Name | Role | Phone | + [...] 2016 | | Center at [facility] [address] | MD Melissa | | | | | [address] Center | | | | | | for Health and | | | | | | Healing, Building 2 | | | | | | [place], [place] | | | | | | [address] | | | | | | [phone] | | | +--------+ + + + [...]
--- OUTSIDE RECORDS SUMMARY | ~2020-05-29 | XMS | Encounter Summary ---
Demographics + + + | Address | [address] | | | [place] [address] | + + + | Home Phone [...] Providers + +------+ + | Care Line Mechanic Name | Role | Phone | [...] | | Pain Center at | ,PhD [address] | denied) | | | | [facility] | [facility] | | | | | [address] | [place], [place] | | | | | [facility] | [address] | | | | | and Martina, | [phone] | | | | | [facility] | | | | | | Floor [place], [place] | | | | | | [address] | | | | | | [phone] | | | +--------+ + + + [...]
--- OUTSIDE RECORDS SUMMARY | ~2020-05-29 | XMS | Encounter Summary ---
Demographics + + + | Address | [address] | | | [place] [address] | + + + | Home Phone [...] Providers + +------+ + | Care Rotating Field Assembler Name | Role | Phone | + +------+ + | Justo Vazquez MD | PCP | | + +------+ + Encounter Details +--------+ + + + + | Date | Type | Department | Care Team | Description | +--------+ + + + + | 01/09/ | Documentati | Orthopaedics | Ranjeet Amanda, | | | 2018 | on | Faculty at [place] | [address] | | | | | for Health and | [place], [place] | | | | | Healing [address] | [address] | | | | | Ave [place] for | [phone] | | | | | Health and Healing, | | | | | | | | | | | | Floor [facility] [place] | | | | | | [address] | | | | | | [phone] | | | +--------+ + + + [...]
--- OUTSIDE RECORDS SUMMARY | ~2020-05-29 | XMS | Encounter Summary ---
Demographics + + + | Address | [address] | | | [place] [address] | + + + | Home Phone [...] Providers + +------+ + | Care Meat Boner Name | Role | Phone | + +------+ + | Allegra Gandhi | PCP | | + +------+ + Encounter Details +--------+ + + + + | Date | Type | Department | Care Team | Description | +--------+ + + + + | 02/13/ | Outside | UNKNOWN DEPARTMENT | Other, Faculty | | | 2011 | Records | [address] | [phone] | | | | | [address] | | | | | | [place], [place] | | | | | | [address] | | | +--------+ + + + [...]
--- OUTSIDE RECORDS SUMMARY | ~2020-05-29 | XMS | Encounter Summary ---
Demographics + + + | Address | [address] | | | [place] [address] | + + + | Home Phone [...] Team Providers + +------+ + | Care Proof Load Mechanic Name | Role | Phone | [...] | | pain | [address] | [place], [place] | | | | | syndrome | [place] | [address] | | | | | type 1 of | [address] | Phone: | | | | | left lower | Phone: | [phone] | | | | | extremity | [phone] | Fax: | | | | | Midline low | Fax: | [phone] | | | | | back pain | [phone] | | | | | | without [...] Ave | | | | | | [place], [place] | [facility] [place] | | | | | | [address] | [address] | | | | | | Phone: | Phone: | | | | | | [phone] | [phone] | | | | | | Fax: | Fax: | | | | | | [phone] | [phone] | +--------+---------+ + + + + Encounter Details +--------+---------+ + + + | Date | Type | Department | Care Team | Description | +--------+---------+ + + + | 07/04/ | Office | [facility] Comprehensive | Lane Reyes, | Complex regional | | 2019 | Visit | Pain Center at | [place] [address] | pain syndrome type 1 | | | | [place] | [place], [place] | of left lower | | | | [address] | [address] | extremity (Primary | | | | Center for [facility] | [phone] | Dx); Midline low | | | | and Healing, | | back pain without | | | | Building | | sciatica, | | | | Floor [place], [place] | | unspecified | | | | [address] | | chronicity; | | | | [phone] | | Sacroiliac pain; | | | [...] and help in coping with the pain. ASSEMBLER FOR PULLER OVER HAND Brief Pain Inventory: (ten= worst possible pain [...] spinal cord stimulator leads 08/02/2012 [facility], Surgeon: Janak Riojas MD Cholecystectomy Appendectomy [...] a light load. Has been working at [employer], can' t work on crVusionches. Has roommates. Allergies Allergen Reactions Morphine Anaphylaxis [...] directed by [facility] Digestive [facility]- 2 gallon bowel prep POLYETHYLENE GLYCOL 3350 17 GRAM/DOSE ORAL POWDER Take 17 g by mouth once daily. PROMETHAZINE 12.5 MG TABLET Take 1 tablet by mouth four times daily as needed for nausea/vo miting. SUCRALFATE 1 GRAM TABLET Take 1 g by mouth four times daily. Radiology/Diagnostic Tests: X-RAY SPINE CERV 4 VIEWS Order: [id number] Performed: 06/12/2018 11:40 Status: Final result Visible [...] that the treatment performed by the chiropractic intern product marketing manager, Niesha Reveles, was directly observed by myself the primary chiropractor Lane Reyes [place] Visit Diagnoses: ICD-10-CM 1. Complex regional pain syndrome type 1 of left lower extremity G90.522 CONSULT TO PAIN [facility] 2. Midline low back pain without sciatica, unspecified chronicity M54.5 CONSULT TO PAIN [facility] 3. Sacroiliac pain M53.3 CONSULT TO PAIN MANAGEMENT [place] CHIROPRAC MANIP,SPINAL,1-2 REGIONS 4. Sacral dysfunction M53.3 FL CHIROPRAC MANIP,SPINAL,1-2 REGIONS 5. Somatic dysfunction of pelvis region M99.05 FL CHIROPRAC MANIP,SPINAL,1-2 REGIONS 6. Somatic dysfunction of sacral region M99.04 FL CHIROPRAC MANIP,SPINAL,1-2 REGIONS Impression: Tracie Farah is a very pleasant 29 year old female who complains today of low back , mid back and neck pain. Her pain intensified after a spinal core simulation surgery in [place] of this year. Ms. Farah was [...] verified the above note written by Chiropractic intern product marketing manager of our visit wit h this patient as recorded by Lane Reyes [place] [facility] AT [address] Mail Code: Ch[address] [address] documented in this e ncounter Plan of Treatment Not on filedocumented as of this encounter Procedures + +--------+ + + + | Procedure Name | Priori | Date/Time | Associated Diagnosis | Comments | | | ty | | | | + +--------+ + + + | [place] CHIROPRAC | Routin | 07/10/2019 | Sacroiliac [...]
--- OUTSIDE RECORDS SUMMARY | ~2020-05-29 | XMS | Encounter Summary ---
Demographics + + + | Address | [address] | | | [place] [address] | + + + | Home Phone [...] Team Providers + +------+ + | Care Perfect Bind Machine Operator Name | Role | Phone [...] 2016 | | Pain Center at | POULTRY DEBEAKER [address] | | | | | [facility] | [place], [place] | | | | | [address] | [address] | | | | | [facility] | [phone] | | | | | and Healing, | | | | | | [facility] | | | | | | [place], [place] | | | | | | [address] | | | | | | [phone] | | | +--------+ + + + [...]
--- OUTSIDE RECORDS SUMMARY | ~2020-05-29 | XMS | Encounter Summary ---
Demographics + + + | Address | [address] | | | [place] [address] | + + + | Home Phone [...] Providers + +------+ + | Care Office Clerk Assistant Name | Role | Phone | + +------+ + | Justo Vazquez MD | PCP | | + +------+ + Encounter Details +--------+ + + + + | Date | Type | Department | Care Team | Description | +--------+ + + + + | 04/23/ | Pharmacy | [facility] | | | | 2019 | Visit | & Healing Pharmacy | | | | | | [address] | | | | | | Mailcode: [place] | | | | | | [facility] | | | | | | Healing, Building [address] | | | | | | [place], [place] | | | | | | [address] | | | | | | [phone] | | | +--------+ + + + [...]
--- OUTSIDE RECORDS SUMMARY | ~2020-05-29 | XMS | Encounter Summary ---
Demographics + + + | Address | [address] | | | [place] [address] | + + + | Home Phone [...] Team Providers + +------+ + | Care Fructose Loader Name | Role | Phone | + +------+ + | Justo Vazquez MD | PCP | | + +------+ + Encounter Details +--------+ + + + + | Date | Type | Department | Care Team | Description | +--------+ + + + + | 05/14/ | Telephone | [facility] | Alex Sanchez, | | | 2019 | | Pain Center at | ,PhD [address] | | | | | [facility] | [address] | | | | | [address] | [place], [place] | | | | | [place] for [facility] | [address] | | | | | and Healing, | [phone] | | | | | | | | | | | Floor [place], [place] | | | | | | [address] | | | | | | [phone] | | | +--------+ + + + [...]
--- OUTSIDE RECORDS SUMMARY | ~2020-05-29 | XMS | Encounter Summary ---
Demographics + + + | Address | [address] | | | [place] [address] | + + + | Home Phone [...] Providers + +------+ + | Care Art Director Name | Role | Phone [...] | | | regional | [place] | [address] | | | | | pain | FAMILY | [facility] | | | | | syndrome), | MEDICINE P | [address] | | | | | lower limb | [address] | [place], [place] | | | | | Pain in | [place], | [address] | | | | | joint, lower | [place] [address] | Phone: | | | | | leg | Phone: | [phone] | | | | | Procedures | [phone] | Fax: | | | | | REQUEST TO | Fax: | [phone] | | | | | SURGERY | [phone] | | | | | | TAPPER OPERATOR | | | +--------+--------+ + + + + Encounter Details +--------+ + + + + | Date | Type | Department | Care Team | Description | +--------+ + + + + | 08/02/ | Procedure | Pain Center at [facility] | Dale Cantu, | Procedure; | | 2011 | | [address] | [address] | Injection; Procedure | | | | [facility] | [facility] [address] | | | | | and Healing, | [place], [place] | | | | | [facility] | [address] | | | | | Floor [place], [place] | [phone] | | | | | [address] | | | | | | [phone] | | | +--------+ + + + [...] e might be different from the original. [facility] Pain Center Patient Instructions - Post Spinal Cord Stimulator Trial Date: 08/02/2012 Name: Tracie Farah Date of : 1990 Procedure Performed: SCS TRIAL LUMBAR [facility] Procedure Provider: Dale Cantu [facility] Procedure Rm If you have any problems you believe are associated with your procedure tonight, Please call the Hospital Directory Clerk, and ask for the Pain Management [...] call for concerns about SCS function. During [facility] open hours, call the [facility] ([phone]), after hours call the compressed air pile driver operator at [facility] ([phone]) and ask for t he Adult Pain Service control cabinet assembler. Identify yourself as a [facility] [...] the wounds, dressing, or SCS function. During RUBBER PRODUCTION MACHINE OPERATOR o pen hours, call the RUBBER PRODUCTION MACHINE OPERATOR ([phone]), after hours call the compressed air pile driver operator at [facility] ([phone] ) and ask for the Adult Pain Service control cabinet assembler. Identify yourself as my patient with a concer n about postoperative recovery. If there are concerns about the SCS programming, contact t he sales representative sales manager from the SCS university teacher. If the stimulation is not covering your area o f pain, your SCS should be reprogrammed. Do not take any blood thinning medications during the trial. Instructions printed and reviewed with the patient. Copy of instructions given to Ms. Nemo renee. DALE CANTU MD [facility] documented in this encounter [...] and postoperative care instructions. DALE CANTU MD Creative Perfumer, [facility] Pain Center Evaluation Assistant, Pain Medicine Professor, Anesthesiology & Perioperative Medicine Diana Arroyo RN - 08/02/2012 7:34 AM PDT PRE-SEDATION: Date: August 02, 2012 Tracie Farah [id number] 1990 ALLERGIES: Morphine Previous reaction to Sedation/Analgesia: MEDICATIONS: Current Outpatient Prescriptions Medication HYDROcodone-acetaminophen (NORCO) 10-325 mg Oral Tablet KETOROLAC TROMETHAMINE (TORADOL IM) levonorgestrel (MIRENA) 20 mcg/24 hr Intrauterine IUD LORazepam 1 mg Oral Tablet ondansetron (ZOFRAN) 8 mg Oral Tablet promethazine 25 mg Oral Tablet Meets NPO Guidelines. IV ACCESS: IV in Place IV Site [facility] 22 g @ 0655 BASELINE VS: See Sedation Flow Sheet. Tracie Donaldson [facility] [id number] 1990, presents to clinic for: Procedure: Spinal [...] 0732 - 0733: Midazolam 2 [place] [address]: Fentanyl 25 mcg IV 0740 - 0741: Midazolam 2 mg IV 0742: Procedure started 0743 - 0744: Fentanyl 50 mcg IV 0753-54: Fentanyl 25 mcg IV Lead # 1 placed Lead # 2 placed 0801: Stimulation started. 0829: Pt reports stimulation to usual areas of pain. Leads secured. 0845: Pt returned to [facility] per [facility] in stable condition. IV dc'd. Evelia [...] OPERATIVE NOTE Date: August 02, 2012 Location: [facility] Procedure Room Tracie Farah [id number] :1990, presents to clinic for: PROCEDURE: Spinal Cord Stimuation Trial LEVEL/LATERALITY: midline lumbar PRE-OPERATIVE DIAGNOSIS: 355.71B CRPS (complex regional pain syndrome), lower limb 719.46 Pain in joint, lower leg 781.2Q Gait disturbance POST-OPERATIVE DIAGNOSIS: 355.71B CRPS (complex regional pain syndrome), lower limb 719.46 Pain in joint, lower leg 781.2Q Gait disturbance ATTENDING PHYSICIAN: Dale Cantu MD MICRO LAB ANALYST: Fellow Bear Yost DO ANESTHESIA: sedation delivered [...] sedation. Ms. Farah was escorted to the [facility] Procedure Ro om, where she was positioned Prone on the examination table. TEAM PAUSE: The physician-led pause was conducted, and is documented in the Nursing note. Monitors were placed, including ECG, NIBP and SpO2. The skin was prepared with Chloroprep and sterile drapes were applied. [employer] system was used for this procedure. The company sales representative sales manager was theresa knutson for the procedure. CEFAZOLIN [...] recovery. Images were saved, and sent to [employer]. Ms. Farah will have her next appointment [...] about wound healing or SCS function. During [facility] open hours, call the [facility] [phone]), after h ours call the compressed air pile driver operator at [facility] ([phone]) and ask for the Adult Pain Service control cabinet assembler. Identify yourself as my patient with a [...] | NC PERCUT IMPLNT | Routin | 08/03/2012 | [...]
--- OUTSIDE RECORDS SUMMARY | ~2020-05-29 | XMS | Encounter Summary ---
Demographics + + + | Address | [address] | | | [place] [address] | + + + | Home Phone [...] Team Providers + +------+ + | Care Otorhinolaryngologist Name | Role | Phone | + +------+ + | Justo Vazquez MD | PCP | | + +------+ + Encounter Details +--------+ + + + + | Date | Type | Department | Care Team | Description | +--------+ + + + + | 01/02/ | Telephone | [facility] | Ilene Bright, | | | 2019 | | Pain Center at | JUKE BOX SERVICER [address] | | | | | [facility] | [place], [place] | | | | | [address] | [address] | | | | | [place] for [facility] | [phone] | | | | | and Healing, | | | | | | | | | | | | Floor [place], [place] | | | | | | [address] | | | | | | [phone] | | | +--------+ + + + [...]
--- OUTSIDE RECORDS SUMMARY | ~2020-05-29 | XMS | Encounter Summary ---
Demographics + + + | Address | [address] | | | [place] [address] | + + + | Home Phone [...] Providers + +------+ + | Care Automatic Spinning Lathe Setter Name | Role | Phone | [...] Rd | | | | | | [place], [place] | | | | | | [address] | | | +--------+ + + + [...]
--- OUTSIDE RECORDS SUMMARY | ~2020-05-29 | XMS | Encounter Summary ---
Demographics + + + | Address | [address] | | | [place] [address] | + + + | Home Phone [...] Team Providers + +------+ + | Care Fisher Trap Name | Role | Phone | + [...] Closed | | Orthopedics | Diagnoses | [place], | [facility] | | | | | Adjustment | Ranjeet Odom MD | [address] | | | | | disorder, | [address] | | | | | unspecified | Ave | Center for | | | | | type | [facility] [place] | Health and | | | | | Procedures | [address] | Healing, | | | | | CONSULT TO | Phone: | Building 1, | | | | | BEHAVIORAL | [phone] | 12th Floor | | | | | HEALTH/PSYCH | Fax: | [place], [place] | | | | | [place] - | [phone] | [address] | | | | | ADULT | | Phone: | | | | | | | [phone] | | | | | | | Fax: | | | | | | | [phone] | +--------+--------+ + + + + Reason [...] | | syndrome | [address] | [place], [place] | | | | | type 1 of | Rd | [address] | | | | | left lower | [place], [place] | Phone: | | | | | extremity | [address] | [phone] | | | | | Procedures | Phone: | Fax: | | | | | CONSULT TO | [phone] | [phone] | | | | | ORTHOPEDICS | Fax: | | | | | | AND | [phone] | | | | | | REHABILITATI [...] | 2018 | Visit | [facility] [employer] | [address] | (Primary Dx); Left | | | | for Health and | [place], [place] | ankle pain, | | | | Healing [address] | [address] | unspecified | | | | [facility] for | [phone] | chronicity; | | | | Health and Healing, | | Adjustment disorder, | | | | Building | | unspecified type | | | | Floor [place], [place] | | | | | | [address] | | | | | | [phone] | | | +--------+---------+ + + + [...] pain, allodynia, presumed complex regional pain syndrome rTacie Farah is a 27 y.o. female who [...] by physician. Concentration is 150mg/mL. Compounded by [facility] ([employer]) ([phone]) levonorgestrel (MIRENA) 20 mcg/24 hr Intrauterine IUD [...] oral recon soln Take as directed by [facility] [employer] [facility]- 2 gallon bowel prep polyethylene glycol [...] the pertinent [facility] and personally formulated the plan with the [...] become. f/u open ended Ranjeet Amanda M.D. Front Office Director Foot and Ankle Surgery Department of Orthopedics & Rehabilitation [facility] [phone] >60 mins face to face consultation was [...] | |Chronic healed distal tibial fracture with obone in place. | | | |Chronic posttraumatic [...]
--- OUTSIDE RECORDS SUMMARY | ~2020-05-29 | XMS | Encounter Summary ---
Demographics + + + | Address | [address] | | | [place] [address] | + + + | Home Phone [...] Providers + +------+ + | Care Cotton Dispatcher Name | Role | Phone | [...] care) | | | | [facility] | [address] | | | | | [address] | [place], [place] | | | | | [facility] | [address] | | | | | and Healing, | [phone] | | | | | | | | | | | Floor [place], [place] | | | | | | [address] | | | | | | [phone] | | | +--------+ + + + [...]
--- OUTSIDE RECORDS SUMMARY | ~2020-05-29 | XMS | Encounter Summary ---
Demographics + + + | Address | [address] | | | [place] [address] | + + + | Home Phone [...] Providers + +------+ + | Care Cut Out Operator Name | Role | Phone | [...] | | | | | Procedures | [place], [place] | | | | | | MR | [id number] | | | | | | ENTEROGRAPHY [...] | 2017 | Visit | Center at [facility] [address] | | unspecified location | | | | [address] [facility] | | (Primary Dx) | | | | for Health and | | | | | | Healing, Building [address] | | | | | | [place], [place] | | | | | | [address] | | | | | | [phone] | | | +--------+---------+ + + + [...] heavy metal poisoning 2) MR enterography - [phone] to schedule 3) can increase miralax to 6 times per day Return to clinic in 3 months Please feel free to call our clinic with any questions. [phone] Kenny Gaspar MD Fellow, Division of Gastroenterology [...] n their attached note. Celia Lin MD Steam Engineerprocurement technician Division of Gastroenterology & Hepatology [facility] Kenny Dodge Md - 2016 3:15 PM PST Gastroenterology Clinic Follow-Up Note 01/11/2017 CC/ID: Tracie Farah is a 26 F PMHx depression, complex regional pain syndrome(CRPS ) here for follow-up of n/v, abdominal pain INTERVAL HISTORY: Previously seen by Dr. Carbajal 08/10/16 - 10/2015 - hospitalized at [facility] for nausea/vomiting/pain -> [facility] -> [...] recon soln Take as directed by [facility]- 2 gallon bowel prep 8000 mL 0 [...] Note | + + | Service Account, [employer] Res In Interface - 02/01/2017 3:50 PM [...]
--- OUTSIDE RECORDS SUMMARY | ~2020-05-29 | XMS | Encounter Summary ---
Demographics + + + | Address | [address] | | | [place] [address] | + + + | Home Phone [...] Providers + +------+ + | Care Mine Wedge Sawyer Name | Role | Phone | [...] 2016 | | Pain Center at | SOFTWARE ENGINEER INTERN [address] | | | | | [facility] | [place], [place] | | | | | [address] | [address] | | | | | [facility] | [phone] | | | | | and Healing, | | | | | | Building | | | | | | [place], [place] | | | | | | [address] | | | | | | [phone] | | | +--------+ + + + [...]
--- OUTSIDE RECORDS SUMMARY | ~2020-05-29 | XMS | Encounter Summary ---
Demographics + + + | Address | [address] | | | [place] [address] | + + + | Home Phone [...] Providers + +------+ + | Care Sales And Operations Trainee Name | Role | Phone | + [...] | | | | | extremity | [address] | [address] | | | | | Muscle pain | Phone: | Phone: | | | | | Procedures | [phone] | [phone] | | | | | REQUEST TO | Fax: | Fax: | | | | | SURGERY | [phone] | [phone] | | | | | JET ENGINE MECHANIC | | | | | | | CO INJ,ANES | | | | | | | AGENT,SCIATI | | | | | | | C | | | | | | | NERVE,SINGLE | | | | | | | CO INJECT | | | | | | | NERV | | | | | | | BLCK,OTHR | | | | | | | PERIPH NERV | | | | | | | CO SONO | | | | | | | GUIDE FOR | | | | | | | NEEDLE | | | | | | | PLACEMENT | | | | | | | CO MOD | | | | | | | SEDATION | | | | | | | >=5YRS SAME | | | | | | | MD/QUAL | | | | | | | PROV; INIT | | | | | | | 15 MIN CO | | | | | | | [...] | Procedure | Pain Center at [facility] | Alex Sanchez, | Pain in left leg; | | 2017 | | [address] | ,PhD [address] | Procedure | | | | Center for Health | [facility] | | | | | and Healing, | [place], [place] | | | | | [facility] | [address] | | | | | [place], [place] | [phone] | | | | | [address] | | | | | | [phone] | | | +--------+ + + + [...] note mi nayelit be [facility] Inst[facility] - Post Interventional Procedure Date: 12/27/2017 Name: Tracie Farah Date of : 1990 Procedure Performed: trigger point injection and popliteal/sciatic block. Procedure Provider: Alex Sanchez MD,PhD If you have any problems you believe are associated with your procedure tonight, Please call the Hospital Parking Inspector, and ask for the Pain Management [...] paper. Please fax the pain diary to [phone] or attach a scanned image of it to a Dibbz message to your doct or.. The area [...] I reviewed the documentation of the other MANAGER OF COMPLIANCE providers and concur with Dr. Linares's findings. I edited his note. Alex Sanchez MD,PhD Thread Reeler Anesthesiology and Pain Management [facility] David Pennington MD - 12/27/2017 3:00 PM PSTPROVIDER OPERATIVE NOTE Date: December 27, 2017 Location: [facility] Procedure Room Tracie Farah [id number] :1990, presents to clinic for: PROCEDURE: Popliteal/sciatic [...] scar neuroma ATTENDING PHYSICIAN: Alex Sanchez MD,PhD STAVE HEWER: Fellow David Linares MD ANESTHESIA: sedation Isadora [...] procedure. Images were saved, and sent to [employer]. Ms. Farah was transported to the [facility] Center post-procedure recovery area. [...] by physician. Concentration is 150mg/mL. Compounded by [facility] ( [phone]) LEVONORGESTREL 20 MCG/24 HR (5 YEARS) INTRAUTERINE [...] as directed by [facility]- 2 gallon bowel prep POLYETHYLENE GLYCOL [...] PRE-SEDATION: Date: December 27, 2017 Tracie Farah [id number] 1990 ALLERGIES: Morphine Previous reaction to Sedation/Analgesia: [...] ride here with you? yes Who?: mother RN/FORENSICS TEAM DIRECTOR History: 1. Has your pain changed from [...] Date: December 27, 2017 Tracie Ocampojulita Farah [id number] 1990 See RN /FORENSICS TEAM DIRECTOR Pre-Sedation Note. IV ACCESS:Right subc PAC. BASELINE VS: See Sedation Flow Sheet. Tracie Donaldson Sofi [id number] 1990, presents to clinic for: Procedure: left [...] started. 1530 Midazolam 2mg IV given 1530 [id number] mcg IV given 1534 Midazolam 1mg IV given 1546 Midazolam 1mg IV given 1546 Zbaztbny353 mcg IV given 1548 Fentanyl 100 mcg IV given bupivacaine 0.5%, 9mL given, 21mL wasted Kenalog 40mg/mL 1mL, 0 mL wasted 1555 abdominal scar trigger point completed. 1558 Fentanyl 50 mcg IV given 1601 Fentanyl 50 mcg IV given Madill placed for Popliteal Nerve Block.. Placement verified [...] + +--------+ + + + | CO INJECTION(S), | Routin | 12/27/2017 | Complex regional | | | ANESTHETIC AGENT(S) | e | 4:32 PM | pain syndrome type 1 | | | AND/OR STEROID; | | PST | of left lower | | | OTHER PERIPHERAL | | | extremity | | | NERVE OR BRANCH | | | | | + +--------+ + + + | CO ROPIVACAINE HCL | Routin | 12/27/2017 | Complex regional | | | INJ 0.5% | e | 4:32 PM | pain syndrome type 1 | | | | | PST | of left lower | | | | | | extremity | | + +--------+ + + + | CO MOD SEDATION | Routin | 12/27/2017 | Complex regional | | | >=5YRS SAME MD/QUAL | e | 4:32 PM | pain syndrome type 1 | | | PROV; INIT 15 MIN | | PST | of left lower | | | | | | extremity | | + +--------+ + + + documented in this encounter Results MANAGER OF COMPLIANCE MISC PROCEDURE (12/27/2017 3:28 PM PST) + [...]
--- OUTSIDE RECORDS SUMMARY | ~2020-05-29 | XMS | Encounter Summary ---
Demographics + + + | Address | [address] | | | [place] [address] | + + + | Home Phone [...] Providers + +------+ + | Care Rn Pool Name | Role | Phone | + +------+ + | Justo Vazquez MD | PCP | | + +------+ + Encounter Details +--------+ + + + + | Date | Type | Department | Care Team | Description | +--------+ + + + + | 01/12/ | Telephone | [facility] | Kenny Gaspar MD | | | 2016 | | [place] [address] [address] | | | | [address] [facility] | | | | | | for Health and | | | | | | [facility], [address] | | | | | | [place], [place] | | | | | | [address] | | | | | | [phone] | | | +--------+ + + + [...]
--- OUTSIDE RECORDS SUMMARY | ~2020-05-29 | XMS | Encounter Summary ---
Demographics + + + | Address | [address] | | | [place] [address] | + + + | Home Phone [...] Team Providers + +------+ + | Care Selling Underwriter Name | Role | Phone | [...] 2017 | | Center at [facility] [address] | | Review | | | | [facility] | | | | | | for Health and | | | | | | [facility] [address] | | | | | | [place], [place] | | | | | | [address] | | | | | | [phone] | | | +--------+ + + + [...]
--- OUTSIDE RECORDS SUMMARY | 2020-05-29 19:42 | XMS ---
PreManage Notification: BRODY LINCOLN Security Train Director Events No recent Security Events currently on file CRITERIA MET - Group Notification - [facility] - Has Care Guidelines - PDMP - [facility] - 2 Visits in 30 Days CARE PROVIDERS [facility] Current PHONE: [phone] Aron Hannah Anesthesiology: Pain Medicine 07/18/2018-Current PHONE: Unknown Guidelines Source: [facility] Guidelines Date: 08/22/2019 Care Recommendation: PATIENT HAS HISTORY COMPLEX REEGIONAL PAIN SYNDROME WELL CYCLICAL ABDOMINAL PAIN/NAUSEA/VOMITING.\T\nbsp; UNDER TREATMENT WITH ARON HANNAH MD PHD PAIN MANAGMENT [facility].\T\nbsp; FOLLOW THIS REGIMEN WHEN PRESENTING TO ED FOR RESOLUTION OF SYMPTOMS: *HYDRATION IV *HYDROMORPHONE 1MG IV * KETOROLAC 30 MG IV *PROMETHAZINE 25MG IV Additional care guidelines exist for the following facilities: [facility] ( 05/21/2019 ) Care History Medical/Surgical 03/06/2020 [facility] Patient has scheduled follow up with Dr. Quach at 11:00 am today.\T\nbsp; [address] Quach in next few weeks. 08/24/2019 [facility] - IF SEEN FOR HER CHRONIC COMPLEX REGIONAL PAIN SYNDROME/NAUSEA VOMITING IN THE EMERGENCY ROOM - TREAT WITH [facility]\T\nbsp;TREATMENT GUIDELINES IN THE ED ONLY --- DO NOT ADMIT FOR OBSERVATION OR\T\nbsp;INPATIENT - MAY NEED TO STAY FOR\T\nbsp;MULTIPLE\T\nbsp;TREATMENT ATTEMPTS - PATIENT IS NO LONGER TO BE ADMITTED\T\nbsp;FOR THIS CHRONIC CONDITION - IF SOMETHING ELSE IS FOUND ADMIT NEEDED\T\nbsp; 05/02/2018 [facility] - Patient is currently established with [facility]. If patient is seen in the ED during business hours. Please contact [facility] at [facility] at [phone] [phone]. Care Recommendation: This patient has had 5 or more Emergency Department visits in the last 12 months.\T\nbsp; Patient requires education on the scope and purpose of the ED as an acute care provider not a Primary Care Provider and should not be utilized for chronic conditions.\T\nbsp; If patient returns to ED please contact Community Health WorkerIlene at [phone]. These are guidelines and the provider should exercise clinical judgment when providing care. E.D. VISIT COUNT (12 MO.) 8 [facility] TOTAL 8 NOTE: Visits indicate total known visits. ED/UCC VISIT TRACKING (12 MO.) 05/29/2020 19:[address] [facility] [place] TYPE: Emergency COMPLAINT: - ABD PAIN,VOMITING 05/26/2020 19:[address] [facility] [place] TYPE: Emergency COMPLAINT: - ABDOMINAL PAIN/VOMITING 03/23/2020 06:[address] [facility] [facility] [place] [place] TYPE: Emergency COMPLAINT: - ABD PAIN, VOMITING 03/09/2020 13:21 [facility] [place] TYPE: Emergency COMPLAINT: - ABD PAIN, VOMITING DIAGNOSES: - Personal history of nicotine dependence - Complex regional pain syndrome I, unspecified - Allergy status to narcotic agent status - Other intermediate (current) drug therapy - Nausea with vomiting, unspecified 03/05/2020 10:51 [facility] [place] TYPE: Emergency COMPLAINT: - ABD PAIN, VOMITING DIAGNOSES: - Other intermediate (current) drug therapy - Other chronic pain - Nicotine dependence, unspecified, uncomplicated - senior living (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 - Allergy status to other drugs, medicaments and biological sub - Cyclical vomiting syndrome unrelated to migraine - Unspecified abdominal pain - Allergy status to narcotic agent status 08/12/2019 15:11 [facility] [place] TYPE: Emergency COMPLAINT: - ABD PAIN, NAUSEA 08/10/2019 13:43 [facility] [place] TYPE: Emergency COMPLAINT: - ABD/BACK PAIN, VOMITING DIAGNOSES: - Other intermediate (current) drug therapy - Upper abdominal pain, unspecified - Allergy status to narcotic agent status - Cyclical vomiting, not intractable 08/08/2019 18:18 [facility] [place] TYPE: Emergency COMPLAINT: - SEVERE ABD AND BACK PAIN, VOMITING DIAGNOSES: - Other intermediate (current) drug therapy - Complex regional pain syndrome I, unspecified - Unspecified abdominal pain - Allergy status to other drugs, medicaments and biological sub - Allergy status to narcotic agent status INPATIENT VISIT TRACKING (12 MO.) 03/23/2020 15:02 [facility] [place] TYPE: Medical Surgical COMPLAINT: - BILATERAL PE DIAGNOSES: - rodent exterminator (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 - Presence of (intrauterine) contraceptive device - Right upper quadrant pain - Complex regional pain syndrome I of left lower limb - Nonspecific elevation of levels of transaminase and lactic ac - Right upper quadrant pain - Interstitial cystitis (chronic) without hematuria - Complex regional pain syndrome I of left lower limb - Other intermission coordinator (current) drug therapy - Cyclical vomiting syndrome unrelated to migraine - Major depressive disorder, single episode, unspecified - Cyclical vomiting syndrome unrelated to migraine - senior living (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 - Nonspecific elevation of levels of transaminase and lactic ac - Other pulmonary embolism without acute cor pulmonale - Allergy status to narcotic agent status - Presence of (intrauterine) contraceptive device - Other intermediate (current) drug therapy - Allergy status to narcotic agent status - Major depressive disorder, single episode, unspecified - Opioid dependence, uncomplicated - Opioid dependence, uncomplicated - Interstitial cystitis (chronic) without hematuria 08/12/2019 15:[address] [facility] [facility] [place] TYPE: Observation COMPLAINT: - INTACKABLE ABDOMINAL PAIN DIAGNOSES: - senior living (current) use of opiate analgesic - Allergy status to narcotic agent status - Unspecified mood [affective] disorder - Complex regional pain syndrome I of left lower limb - Nausea with vomiting, unspecified - Right upper quadrant pain - Chronic pain syndrome - Other intermediate (current) drug therapy - Other constipation [email or web address]
== END 2020-05-29 23:14 | disposition home or self-care (01) ==
LOC: ED 19:39
DX: G90.59 Complex regional pain syndrome I of other specified site (principal); R10.9 Unspecified abdominal pain; Z88.5 Allergy status to narcotic agent; Z79.899 Other long term (current) drug therapy
CPT/HCPCS: 36415; 80053; 81001; 83690; 84703; 85025; 96361; 96374; 96375; 96376; 99284-25; C9113; J2550; J7030

== ENCOUNTER 2020-06-02 15:35 | Emergency (ER) | payer MEDICARE, OTHER ==
[~2020-06-02] VITALS: Ht 165.1 cm; Wt 95.7 kg
--- OUTSIDE RECORDS SUMMARY | ~2020-06-02 | XMS | Encounter Summary ---
Demographics + + + | Address | [address] | | | [place] [address] | + + + | Home Phone | | + + + | Preferred Language | Unknown | + + + | Marital Status | Single | + + + | Hoahaoism Affiliation | FMD | + + + | Race | White | + + + | Ethnic Group | Not or | + + + Author + + + | Author | [facility] | + + + | Organization | [facility] | + + + | Address | Unknown | + + + | Phone | Unavailable | + + + Support + + +---------+ + | Name | Relationship | Address | Phone | + + +---------+ + | Patricia Colin | ECON | Unknown | | + + +---------+ + Care Team Providers + +------+ + | Care Compound Machine Operator Name | Role | Phone | + +------+ + | Justo Vazquez MD | PCP | | + +------+ + Encounter Details +--------+ + + + + | Date | Type | Department | Care Team | Description | +--------+ + + + + | 06/04/ | Documentati | [facility] | Alex Sanchez, | | | 2019 | on | Pain Center at | ,PhD [address] | | | | | [facility] | [address] | | | | | [address] | [place], [place] | | | | | [place] for [facility] | [address] | | | | | and Healing, | [phone] | | | | | | | | | | | Floor [place], [place] | | | | | | [address] | | | | | | [phone] | | | +--------+ + + + + Social History + +-------+ +--------+------+ | Tobacco Use | Types | Packs/Day | Years | Date | | | | | Used | | + +-------+ +--------+------+ | Current Some Day | | | | | | Smoker | | | | | + +-------+ +--------+------+ + +---+---+---+ | Smokeless Tobacco: | | | | | Never Used | | | | + +---+---+---+ + + | Comments: rarely 3/year | + + + + +---------+ + | Alcohol Use | Drinks/Week | oz/Week | Comments | + + +---------+ + | No | | | rare | + + +---------+ + + + [...]
--- OUTSIDE RECORDS SUMMARY | ~2020-06-02 | XMS | Encounter Summary ---
Demographics + + + | Address | [address] | | | [place] [address] | + + + | Home Phone | | + + + | Preferred Language | Unknown | + + + | Marital Status | Single | + + + | Restorationist Affiliation | FMD | + + + | Race | White | + + + | Ethnic Group | Not or | + + + Author + + + | Author | [facility] | + + + | Organization | [facility] | + + + | Address | Unknown | + + + | Phone | Unavailable | + + + Support + + +---------+ + | Name | Relationship | Address | Phone | + + +---------+ + | Patricia Colin | ECON | Unknown | | + + +---------+ + Care Team Providers + +------+ + | Care Scientific Glass Blower Name | Role | Phone | + +------+ + | Justo Vazquez MD | PCP | | + +------+ + Reason for Visit + + + | Reason | Comments | + + + | Medication Refill | ketamine- mail script to patient | | Request | | + + + Encounter Details +--------+ + + + + | Date | Type | Department | Care Team | Description | +--------+ + + + + | 02/21/ | Telephone | [facility] | Alex Sanchze, | Medication Refill | | 2018 | | Pain Center at | ,PhD [address] | Request (ketamine- | | | | [facility] | [address] | mail script to | | | | [address] | [place], [place] | patient) | | | | [facility] | [address] | | | | | and Healing, | [phone] | | | | | | | | | | | Floor [place], [place] | | | | | | [address] | | | | | | [phone] | | | +--------+ + + + [...]
--- OUTSIDE RECORDS SUMMARY | ~2020-06-02 | XMS | Encounter Summary ---
Demographics + + + | Address | [address] | | | [place] [address] | + + + | Home Phone | | + + + | Preferred Language | Unknown | + + + | Marital Status | Single | + + + | Church Affiliation | FMD | + + + | Race | White | + + + | Ethnic Group | Not or | + + + Author + + + | Author | [facility] | + + + | Organization | [facility] | + + + | Address | Unknown | + + + | Phone | Unavailable | + + + Support + + +---------+ + | Name | Relationship | Address | Phone | + + +---------+ + | Patricia Colin | ECON | Unknown | | + + +---------+ + Care Team Providers + +------+ + | Care Fishing Captain Name | Role | Phone | + +------+ + | Justo Vazquez MD | PCP | | + +------+ + Reason for Referral Consultation (Routine) +--------+--------+ + + + + | Status | Reason | Specialty | Diagnoses / | Referred By | Referred To | | | | | Procedures | Contact | Contact | +--------+--------+ + + + + | Closed | | Non [facility] | Diagnoses | Sdrulla, | | | | | Department | Complex | Alex Alba, | | | | | | regional | ,PhD [address] | | | | | | pain | [address] | | | | | | syndrome | [address] | | | | | | type 1 of | Rd | | | | | | left lower | [place], [place] | | | | | | extremity | [address] | | | | | | Procedures | Phone: | | | | | | CONSULT TO | [phone] | | | | | | ORTHOPEDICS | Fax: | | | | | | AND | [phone] | | | | | | REHABILITATI | | | | | | | ON | | | +--------+--------+ + + + + Encounter Details +--------+ + + + + | Date | Type | Department | Care Team | Description | +--------+ + + + + | 06/08/ | Special Agent In Charge | [facility] | Alex Sanchez, | Complex regional | | 2019 | | Pain Center at | ,PhD [address] | pain syndrome type 1 | | | | [facility] | [address] | of left lower | | | | [address] | [place], [place] | extremity (Primary | | | | Center for [facility] | [address] | Dx) | | | | and Healing, | [phone] | | | | | | | | | | | Floor [place], [place] | | | | | | [address] | | | | | | [phone] | | | +--------+ + + + [...] syndrome type 1 of left lower extremity - Primary | + + documented in this encounter"
--- OUTSIDE RECORDS SUMMARY | ~2020-06-02 | XMS | Encounter Summary ---
Demographics + + + | Address | [address] | | | [place] [address] | + + + | Home Phone [...] Team Providers + +------+ + | Care Regulatory Compliance Specialist Name | Role | Phone | + +------+ + | Justo Vazquez MD | PCP | | + +------+ + Encounter Details +--------+ + + + + | Date | Type | Department | Care Team | Description | +--------+ + + + + | 01/09/ | Documentati | Orthopaedics | Ranjeet Amanda, | | | 2018 | on | Faculty at [facility] | [address] | | | | | for Health and | [place], [place] | | | | | Healing [address] | [address] | | | | | Ave [facility] for | [phone] | | | | | Health and Healing, | | | | | | | | | | | | Floor [facility] [place] | | | | | | [address] | | | | | | [phone] | | | +--------+ + + + [...]
--- OUTSIDE RECORDS SUMMARY | ~2020-06-02 | XMS | Encounter Summary ---
Demographics + + + | Address | [address] | | | [place] [address] | + + + | Home Phone | | + + + | Preferred Language | Unknown | + + + | Marital Status | Single | + + + | Yazidism Affiliation | FMD | + + + | Race | White | + + + | Ethnic Group | Not or | + + + Author + + + | Author | [facility] | + + + | Organization | [facility] | + + + | Address | Unknown | + + + | Phone | Unavailable | + + + Support + + +---------+ + | Name | Relationship | Address | Phone | + + +---------+ + | Patricia Colin | ECON | Unknown | | + + +---------+ + Care Team Providers + +------+ + | Care Weaver Apprentice Name | Role | Phone | + +------+ + | Allegra Gandhi | PCP | | + +------+ + Reason for Visit + + + | Reason | Comments | + + + | [facility] | | | House - Approved | | + + + Encounter Details +--------+ + + + + | Date | Type | Department | Care Team | Description | +--------+ + + + + | 07/25/ | Telephone | Case Management | Bruna Gonzalez | [facility] | | 2011 | IP | [address] | | House - Approved | | | | [place], | | | | | | [place] [address] | | | +--------+ + + + [...]
--- OUTSIDE RECORDS SUMMARY | ~2020-06-02 | XMS | Encounter Summary ---
Demographics + + + | Address | [address] | | | [place] [address] | + + + | Home Phone | | + + + | Preferred Language | Unknown | + + + | Marital Status | Single | + + + | Anabaptism Affiliation | FMD | + + + | Race | White | + + + | Ethnic Group | Not or | + + + Author + + + | Author | [facility] | + + + | Organization | [facility] | + + + | Address | Unknown | + + + | Phone | Unavailable | + + + Support + + +---------+ + | Name | Relationship | Address | Phone | + + +---------+ + | Patricia Colin | ECON | Unknown | | + + +---------+ + Care Team Providers + +------+ + | Care Solid Waste Collector Name | Role | Phone | + [...] Rd | | | | | | [place], [place] | | | | | | [address] | | | +--------+ + + + [...]
--- OUTSIDE RECORDS SUMMARY | ~2020-06-02 | XMS | Encounter Summary ---
Demographics + + + | Address | [address] | | | [place] [address] | + + + | Home Phone [...] Team Providers + +------+ + | Care Tar Processing Technician Name | Role | Phone | + [...] | +--------+ + + + + | 08/11/ | Documentati | [facility] at [facility] | Lab, Gi Procedure | Medical Records | | 2015 | on | [facility] [address] | | Review | | | | [address] [facility] | | | | | | Health and Healing, | | | | | | [address] | | | | | | [place], [place] | | | | | | [address] | | | | | | [phone] | | | +--------+ + + + [...]
--- OUTSIDE RECORDS SUMMARY | ~2020-06-02 | XMS | Encounter Summary ---
Demographics + + + | Address | [address] | | | [place] [address] | + + + | Home Phone [...] Team Providers + +------+ + | Care Pecan Sheller Name | Role | Phone | + [...] | | 2016 | | Center at [facility] [address] | [address] | | | | | [address] | | | | | | for Health and | | | | | | Healing, [address] | | | | | | [place], [place] | | | | | | [address] | | | | | | [phone] | | | +--------+ + + + [...]
--- OUTSIDE RECORDS SUMMARY | ~2020-06-02 | XMS | Encounter Summary ---
Demographics + + + | Address | [address] | | | [place] [address] | + + + | Home Phone | | + + + | Preferred Language | Unknown | + + + | Marital Status | Single | + + + | Amish Affiliation | FMD | + + + [...] Team Providers + +------+ + | Care Puncher Name | Role | Phone | + +------+ + | Justo Vazquez MD | PCP | | + +------+ + Encounter Details +--------+ + + + + | Date | Type | Department | Care Team | Description | +--------+ + + + + | 03/16/ | Telephone | Digestive Health | Crys Gomez, | | | 2016 | | Center at [facility] [address] | [address] | | | | | [address] | [address] | | | | | [facility] and | [place], [place] | | | | | [facility] [address] | [address] | | | | | [place], [place] | [phone] | | | | | [address] | | | | | | [phone] | | | +--------+ + + + [...]
--- OUTSIDE RECORDS SUMMARY | ~2020-06-02 | XMS | Encounter Summary ---
Demographics + + + | Address | [address] | | | [place] [address] | + + + | Home Phone [...] + + + | Author | [facility] | + + + | Organization | [facility] | + + + | Address | Unknown | + + + | Phone | Unavailable | + + + Support + + +---------+ + | Name | Relationship | Address | Phone | + + +---------+ + | Patricia Colin | ECON | Unknown | | + + +---------+ + Care Team Providers + +------+ + | Care Stone Trimmer Name | Role | Phone | + +------+ + | Justo Vazquez MD | PCP | | + +------+ + Reason for Visit + + + | Reason | Comments | + + + | Returning Phone Call | | + + + Encounter Details +--------+ + + + + | Date | Type | Department | Care Team | Description | +--------+ + + + + | 06/22/ | Telephone | [facility] | Ilene Bright, | Returning Phone Call | | 2017 | | Pain Center at | OBGYN SPECIALIST [address] | | | | | [facility] | [place], [place] | | | | | [address] | [address] | | | | | [facility] | [phone] | | | | | and Healing, | | | | | | Building | | | | | | [facility] [place] | | | | | | [address] | | | | | | [phone] | | | +--------+ + + + [...]
--- OUTSIDE RECORDS SUMMARY | ~2020-06-02 | XMS | Encounter Summary ---
Demographics + + + | Address | [address] | | | [place] [address] | + + + | Home Phone [...] Author + + + | Author | [facility] | + + + | Organization | [facility] | + + + | Address | Unknown | + + + | Phone | Unavailable | + + + Support + + +---------+ + | Name | Relationship | Address | Phone | + + +---------+ + | Patricia Colin | ECON | Unknown | | + + +---------+ + Care Team Providers + +------+ + | Care Cafeteria Or Lunchroom Checker Name | Role | Phone | + [...] 2016 | | Pain Center at | PRESENTATION TEAM MEMBER [address] | | | | | [facility] | [place], [place] | | | | | [address] | [address] | | | | | [facility] | [phone] | | | | | and Healing, | | | | | | [facility] | | | | | | [place], [place] | | | | | | [address] | | | | | | [phone] | | | +--------+ + + + [...]
--- OUTSIDE RECORDS SUMMARY | ~2020-06-02 | XMS | Encounter Summary ---
Demographics + + + | Address | [address] | | | [place] [address] | + + + | Home Phone [...] Team Providers + +------+ + | Care Television Production Technician Name | Role | Phone | + +------+ + | Justo Vazquez MD | PCP | | + +------+ + Encounter Details +--------+ + + + + | Date | Type | Department | Care Team | Description | +--------+ + + + + | 03/23/ | MyChart | [facility] | Ilene Bright, | Welcome | | 2017 | Encounter | Pain Center at | RESIDENTIAL REMODELING SUBCONTRACTOR [address] | | | | | [facility] | [place], [place] | | | | | [address] | [address] | | | | | [place] for [facility] | [phone] | | | | | and Healing, | | | | | | | | | | | | Floor [place], [place] | | | | | | [address] | | | | | | [phone] | | | +--------+ + + + [...]
--- OUTSIDE RECORDS SUMMARY | ~2020-06-02 | XMS | Encounter Summary ---
Demographics + + + | Address | [address] | | | [place] [address] | + + + | Home Phone [...] Team Providers + +------+ + | Care Sheriff'S Officer Name | Role | Phone | + +------+ + | Justo Vazquez MD | PCP | | + +------+ + Encounter Details +--------+ + + + + | Date | Type | Department | Care Team | Description | +--------+ + + + + | 12/07/ | Saw Boss | [facility] | Ava Carbajal | | | 2016 | | [facility] [address] | | | | | [address] [facility] for | | | | | | Health and Healing, | | | | | | [address] | | | | | | [place], [place] | | | | | | [address] | | | | | | [phone] | | | +--------+ + + + [...]
--- OUTSIDE RECORDS SUMMARY | ~2020-06-02 | XMS | Encounter Summary ---
Demographics + + + | Address | [address] | | | [place] [address] | + + + | Home Phone | | + + + | Preferred Language | Unknown | + + + | Marital Status | Single | + + + | Episcopal Affiliation | FMD | + + + [...] Team Providers + +------+ + | Care Lusterer Name | Role | Phone | + +------+ + | Justo Vazquez MD | PCP | | + +------+ + Encounter Details +--------+------+ + + + | Date | Type | Department | Care Team | Description | +--------+------+ + + + | 12/14/ | Lab | Laboratory at [facility] | | Complex regional | | 2018 | | [address] | | pain syndrome type 1 | | | | Center for [facility] | | of left lower | | | | and Healing, | | extremity; Muscle | | | | [address] | | pain | | | | [place], [place] | | | | | | [address] | | | | | | [phone] | | | +--------+------+ + + + Social History + +-------+ [...] | + +--------+ + + + | DRUG | Routin | 12/14/2017 | Complex regional | Results for this | | SCREEN,URINE;W/ZULMA | e | 11:42 AM | pain syndrome type 1 | procedure are in the | | RM | | PST | of left lower | results section. | | | | | extremity Muscle | | | | | | pain | | + +--------+ + + + documented in this encounter Results DRUG SCREEN,URINE;W/DONNA (12/14/2017 11:42 AM PST) + + + [...] | + + + + + | [facility] | [address] | [place] [address] | | | [address]OSS | [address] | | | + + + + + documented in this encounter Visit Diagnoses + + | Diagnosis | + + | Complex regional pain syndrome type 1 of left lower extremity | + + | Muscle pain Mylagia and myositis, unspecified | + + documented in this encounter"
--- OUTSIDE RECORDS SUMMARY | ~2020-06-02 | XMS | Encounter Summary ---
Demographics + + + | Address | [address] | | | [place] [address] | + + + | Home Phone [...] Team Providers + +------+ + | Care Screen Writer Name | Role | Phone | + +------+ + | Justo Vazquez MD | PCP | | + +------+ + Reason for Visit + + + | Reason | Comments | + + + | Wound infection | Concern for DRG trial wound infection | + + + Encounter Details +--------+ + + + + | Date | Type | Department | Care Team | Description | +--------+ + + + + | 10/07/ | Telephone | [facility] | Yosef Kenney MD | Wound infection | | 2018 | | Pain Center at | [address] | (Concern for DRG | | | | [facility] | [address] [place], | trial wound | | | | [address] | [place] [address] | infection) | | | | [facility] | [phone] | | | | | and Healing, | | | | | | | | | | | | [place], [place] | | | | | | [address] | | | | | | [phone] | | | +--------+ + + + [...]
--- OUTSIDE RECORDS SUMMARY | ~2020-06-02 | XMS | Encounter Summary ---
Demographics + + + | Address | [address] | | | [place] [address] | + + + | Home Phone [...] Team Providers + +------+ + | Care Pet Caregiver Name | Role | Phone | + +------+ + | Justo Vazquez MD | PCP | | + +------+ + Encounter Details +--------+ + + + + | Date | Type | Department | Care Team | Description | +--------+ + + + + | 05/18/ | Telephone | [facility] | Alex Sanchez, | | | 2019 | | Pain Center at | ,PhD [address] | | | | | [facility] | [address] | | | | | [address] | [place], [place] | | | | | [place] for [facility] | [address] | | | | | and Healing, | [phone] | | | | | | | | | | | Floor [place], [place] | | | | | | [address] | | | | | | [phone] | | | +--------+ + + + [...]
--- OUTSIDE RECORDS SUMMARY | ~2020-06-02 | XMS | Encounter Summary ---
Demographics + + + | Address | [address] | | | [place] [address] | + + + | Home Phone [...] Team Providers + +------+ + | Care Towel Rolling Machine Operator Name | Role | Phone [...] 2017 | | Pain Center at | PREPARED FOODS SERVICE TEAM MEMBER [address] | | | | | [facility] | [place], [place] | | | | | [address] | [address] | | | | | [place] for [facility] | [phone] | | | | | and Healing, | | | | | | | | | | | | Floor [place], [place] | | | | | | [address] | | | | | | [phone] | | | +--------+ + + + [...]
--- OUTSIDE RECORDS SUMMARY | ~2020-06-02 | XMS | Encounter Summary ---
Demographics + + + | Address | [address] | | | [place] [address] | + + + | Home Phone [...] Team Providers + +------+ + | Care Search Marketing Coordinator Name | Role | Phone | [...] (plan of care) | | | | [facility] | [address] | | | | | [address] | [place], [place] | | | | | [facility] | [address] | | | | | and Healing, | [phone] | | | | | | | | | | | Floor [place], [place] | | | | | | [address] | | | | | | [phone] | | | +--------+ + + + [...]
--- OUTSIDE RECORDS SUMMARY | ~2020-06-02 | XMS | Encounter Summary ---
Demographics + + + | Address | [address] | | | [place] [address] | + + + | Home Phone [...] + +------+ + | Care Professor Of Mechanical Engineering Name | Role | Phone | + [...] + + | 12/05/ | Hospital | [facility] | Alex Sanchez, | | | 2019 | Encounter | STAY [address] | ,PhD [address] [facility] | | | | | Courtney Mailcode: [facility] | [address] | | | | | [facility] | [place], [place] | | | | | Health and [facility], | [address] | | | | | [place] [address] | [phone] | | | | | [place], [place] | | | | | | [address] | | | | | | [phone] | | | +--------+ + + + [...] a patient satisfaction survey from "Arie Roe". We w newld appreciate your feedback on the survey to [...] s/p successful DRG trial lead system with [email or web address] System on 09/25/2018. No changes in H&P, [...] OPERATIVE NOTE Date: December 05, 2018 Location: [facility] [place] | | | Tracie Farah [id number] :1990, presents to clinic | | | for: Dorsal root ganglion stimulator implant PROCEDURE: Dorsal | | | root ganglion stimulator implant PRE-OPERATIVE DIAGNOSIS: Complex | | | regional Pain syndrome type 1 of left lower extremity | | | POST-OPERATIVE DIAGNOSIS: Complex regional Pain syndrome type 1 of | | | left lower extremity ATTENDING PHYSICIAN: Alex Sanchez | | | INFORMATICS PHARMACIST: Arben Valerio MD ANESTHESIA: sedation by IVIS Cole | | | Carmen, supervised by burnishing machine operator Ilir Valdes. | | | FINDINGS: Appropriate [...] sedation. Ms. Farah was escorted to the [facility] | | | [place], where she was [...] to the | | | [facility] [employer] customer service representative teacher. A test stimulation was performed and once [...] recovery. Images were saved, and sent to [employer]. | | | Alex Sancehz (attending) was present for the entire procedure. | | | Arben Valerio MD I was present for the entire procedure | | | (spinal cord stimulator implantation with DRG leads at left L4 and | | | L5) and all bocanegra elements of this visit. I reviewed the | | | documentation of the other COLOR LABORATORY TECHNICIAN providers and concur with Dr. | | | Iman's findings. I edited his note. Alex Sanchez, | | | ,PhD Real Estate Services Administrator Anesthesiology and Pain Management | | | [facility] | | + + + HCG URINE, [...] + + | JOSE ANTONIO MIN | [address] | [place] [address] | | | OF CARE TESTS | [...]
--- OUTSIDE RECORDS SUMMARY | ~2020-06-02 | XMS | Encounter Summary ---
Demographics + + + | Address | [address] | | | [place] [address] | + + + | Home Phone [...] Team Providers + +------+ + | Care Solar Fabrication Technician Name | Role | Phone | + +------+ + | Allegra Chaudhary | PCP | | + +------+ + Encounter Details +--------+ + + + + | Date | Type | Department | Care Team | Description | +--------+ + + + + | 10/21/ | Telephone | [facility] | Antony Beltre, | | | 2014 | | [place] [address] [address] | [address] | | | | | [address] [place] | [place] [address] | | | | | for Health and | [phone] | | | | | [facility], [facility] [address] | | | | | | [place], [place] | | | | | | [address] | | | | | | [phone] | | | +--------+ + + + [...]
--- OUTSIDE RECORDS SUMMARY | ~2020-06-02 | XMS | Encounter Summary ---
Demographics + + + | Address | [address] | | | [place] [address] | + + + | Home Phone [...] Team Providers + +------+ + | Care Wood Shop Teacher Name | Role | Phone | + +------+ + | Justo Vazquez MD | PCP | | + +------+ + Encounter Details +--------+ + + + + | Date | Type | Department | Care Team | Description | +--------+ + + + + | 05/05/ | Documentati | [facility] | Alex Sanchez, | | | 2018 | on | Pain Center at | ,PhD [address] | | | | | [facility] | [address] | | | | | [address] | [place], [place] | | | | | [place] for [facility] | [address] | | | | | and Healing, | [phone] | | | | | | | | | | | Floor [place], [place] | | | | | | [address] | | | | | | [phone] | | | +--------+ + + + [...]
--- OUTSIDE RECORDS SUMMARY | ~2020-06-02 | XMS | Encounter Summary ---
Demographics + + + | Address | [address] | | | [place] [address] | + + + | Home Phone [...] Team Providers + +------+ + | Care Dynamotor Repairer Name | Role | Phone | [...] | 2016 | Encounter | Center at [facility] [address] | | results | | | | [address] [facility] | | | | | | for Health and | | | | | | Healing, [address] | | | | | | [place], [place] | | | | | | [address] | | | | | | [phone] | | | +--------+ + + + [...]
--- OUTSIDE RECORDS SUMMARY | ~2020-06-02 | XMS | Encounter Summary ---
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 Surgery check-in location: [facility] Day Stay - [facility], 4th floor Surgery Check in Time: The [...] it is after office hours, call the [facility] cam milling machine operator at [phone] and ask them to page him or h er. documented in this encounter Progress Notes Catie Smart NP - 11/27/2018 2:05 PM PST PREOPERATIVE CONSULT NOTE Author: Catie Smart NP Referring Physician: Alxe Sanchez MD Primary Care Provider: Justo Vazquez MD Reason for Consult: Preoperative evaluation and risk assessment Proposed Procedure/Date: implant SCS; 12/05/2018 Proposed Procedure Location: [facility] HISTORY OF PRESENT ILLNESS: Tracie Farah is [...] renal failure no electrolyte abnormalities no dialysis Urology/Metal Moulder'S Assistant: Interstitial cystitis LMP: irreg bleeding, ~11/14/2018, IUD [...] oral recon soln Take as directed by [facility] [employer] [facility]- 2 gallon bowel prep polyethylene glycol [...] patient is a lso currently scheduled at [facility] [place] and is meeting inclusion criteria for [...] to this patient's care. Catie Smart NP [facility] PREOPERATIVE MEDICINE CLINIC AT [facility] 4TH FLOOR [address] [facility] [address] I advised the patient regarding NPO [...]
--- OUTSIDE RECORDS SUMMARY | ~2020-06-02 | XMS | Encounter Summary ---
Demographics + + + | Address | [address] | | | [place] [address] | + + + | Home Phone [...] Team Providers + +------+ + | Care Playground Supervisor Name | Role | Phone | + +------+ + | Justo Vazquez MD | PCP | | + +------+ + Encounter Details +--------+ + + + + | Date | Type | Department | Care Team | Description | +--------+ + + + + | 03/17/ | MyChart | [facility] | Yun Frey NP | Welcome | | 2017 | Encounter | Pain Center at | [address] | | | | | [facility] | [place], [place] | | | | | [address] | [address] | | | | | [place] for [facility] | [phone] | | | | | and Healing, | | | | | | | | | | | | Floor [place], [place] | | | | | | [address] | | | | | | [phone] | | | +--------+ + + + [...]
--- OUTSIDE RECORDS SUMMARY | ~2020-06-02 | XMS | Encounter Summary ---
Demographics + + + | Address | [address] | | | [place] [address] | + + + | Home Phone [...] Team Providers + +------+ + | Care Pile Driving Supervisor Name | Role | Phone | + +------+ + | Justo Vazquez MD | PCP | | + +------+ + Reason for Visit +--------+ + | Reason | Comments | +--------+ + | Other | Patient in severe stomach Pain | +--------+ + Encounter Details +--------+ + + + + | Date | Type | Department | Care Team | Description | +--------+ + + + + | 07/25/ | Telephone | [facility] | Kenny Gaspar MD | Other (Patient in | | 2016 | | Center at [facility] [address] | | severe stomach Pain) | | | | [address] [facility] | | | | | | for Health and | | | | | | Healing, [address] | | | | | | [place], [place] | | | | | | [address] | | | | | | [phone] | | | +--------+ + + + [...]
--- OUTSIDE RECORDS SUMMARY | ~2020-06-02 | XMS | Clinical Summary ---
Demographics + + + | Address | [address] | | | [place] [address] | + + + | Home Phone [...] Author + + + | Author | [facility] | + + + | Organization | [facility] | + + + | Address | Unknown | + + + | Phone | Unavailable | + + + Support + + +---------+ + | Name | Relationship | Address | Phone | + + +---------+ + | Patricia Colin | ECON | Unknown | | + + +---------+ + Care Team Providers + +------+ + | Care Carton Making Machine Operator Name | Role | Phone | + +------+ + | Justo Vazquez MD | PCP | | + +------+ + Source Comments K[facility] is fully live on both [facility] Ambulatory and [facility] InPatient.[facility] Allergies + + + + + + | Active Allergy | Reactions | Severity | Noted | Comments | | | | | Date | | + + + + + + | Haloperidol | Myalgia | | 10/09/20 | Tracie states | | | | | 20 | muscle spasm and | | | | | | "feeling like | | | | | | crawling out of | | | | | | skin." | + + + + + + | Morphine | Anaphylaxis | High | 02/14/20 | | | | | | 12 | | + + + + + + Medications + + + +---------+------+------+-------+ | Medication | Sig | Dispensed | Refills | Star | End | Statu | | | | | | t | Date | s | | | | | | Date | | | + + + +---------+------+------+-------+ | levonorgestrel | 1 Each by | | 0 | | | Activ | | (MIRENA) 20 mcg/24 | Intrauterine route | | | | | e | | hr Intrauterine IUD | once. [...] | | | | + + + +---------+------+------+-------+ | polyethylene | Take 17 g by mouth | 119 g | 0 | 10/14 | | Activ | | glycol 17 gram/dose | once daily. | | | 01/03 | | e | | oral powder | | | | 15 | | | + + + +---------+------+------+-------+ +---+ + | | Additional | | | InformationPatient | | | taking differently: | | | 17 g oral DAILY | | | NEEDED, Reported on | | | 04/23/2019 12:51 PM | +---+ + + + + +---+------+---+-------+ | ondansetron ODT 4 | Dissolve 1 tablet in | 15 | 0 | 07/16 | | Activ | | mg oral | mouth every twelve | tablet | | 5/20 | | e | | tablet,disintegratin | hours as needed. | | | 16 | | | | g | | | | | | | + + + +---+------+---+-------+ | peg-electrolyte | Take as directed by | 8000 mL | 0 | /2 | | Activ | | 236-22.74-6.74 -5.86 | [facility] | | | /20 | | e | | gram oral recon | Health- 2 gallon | | | 17 | | | | soln | bowel prep | | | | | | + + + +---+------+---+-------+ | sucralfate 1 gram | Take 1 g by mouth | | 0 | | | Activ | | oral tablet | four times daily. | | | | | e | + + + +---+------+---+-------+ | pantoprazole 40 mg | Take 40 mg by mouth | | 0 | | | Activ | | oral tablet,delayed | once daily as | | | | | e | | release (DR/EC) | needed. | | | | | | + + + +---+------+---+-------+ | cyclobenzaprine 5 | Take 5 mg by mouth | | 0 | | | Activ | | mg oral tablet | three times daily as | | | | | e | | | needed. Do not use | | | | | | | | longer than 2-3 | | | | | | | | weeks. | | | | | | + + + +---+------+---+-------+ | baclofen 10 mg | Take 0.5 tablets by | 6 | 0 | 12/0 | | Activ | | oral | mouth two times | tablet | | 8/20 | | e | | tabletIndications: | daily. Take at the | | | 17 | | | | muscle spasm | onset of abdominal | | | | | | | | spasm for two days. | | | | | | | | Indications: muscle | | | | | | | | spasm | | | | | | + + + +---+------+---+-------+ | ketorolac | Inject into the | | 0 | | | Activ | | tromethamine | muscle (IM). | | | | | e | | (KETOROLAC IM) | | | | | | | + + + +---+------+---+-------+ | hydrOXYzine 50 mg | Take 1 tablet by | | 5 | 07/2 | | Activ | | oral tablet | mouth two times | | | 6/20 | | e | | | daily. | | | 18 | | | + + + +---+------+---+-------+ | promethazine 12.5 | Take 1 tablet by | 20 | 0 | 04/2 | | Activ | | mg oral tablet | mouth four times | tablet | | 08/03 | | e | | | daily as needed for | | | 19 | | | | | nausea/vomiting. | | | | | | + + + +---+------+---+-------+ | buPROPion 100 mg | Take 200 mg by mouth | | 0 | | | Activ | | oral tablet | two times daily. | | | | | e | + + + +---+------+---+-------+ | DULoxetine 30 mg | Take 60 mg by mouth | | 0 | | | Activ | | oral capsule,delayed | once daily in the | | | | | e | | release(DR/EC) | morning. | | | | | | + + + +---+------+---+-------+ | DULoxetine 30 mg | Take 30 mg by mouth | | 0 | | | Activ | | oral capsule,delayed | once daily in the | | | | | e | | release(DR/EC) | evening. | | | | | | + + + +---+------+---+-------+ | cloNIDine HCl 0.1 | Take 0.1-0.2 mg by | | 0 | | | Activ | | mg oral tablet | mouth once daily at | | | | | e | | | bedtime. | | | | | | + + + +---+------+---+-------+ | oxyCODONE | Take one-half tablet | 90 | 0 | 06/1 | | Activ | | (immediate release) | by mouth every | tablet | | 0/20 | | e | | 10 mg oral | eight hours as | | | 19 | | | | tabletIndications: | needed for severe | | | | | | | CRPS flare | pain. Indications: | | | | | | | | CRPS flare | | | | | | + + + +---+------+---+-------+ Active Problems + + + | Problem | Noted Date | + + + | [facility] CLINICAL PROTOCOL PATIENT (PETER) - Implanted Spinal Cord | 12/14/2018 | | Stimulator | | + + + + + | Overview: Patient has an implanted StyleTread spinal | | cord stimulator. Model#: [id number]. Contact [phone] for | | technical assistance.Contraindications:Sources of strong | | electromagnetic interference (e.g., defibrillation, diathermy, | | electrocautery, MRI, RF ablation, and therapeutic ultrasound) can | | interact with the neurostimulation system, resulting in serious | | patient injury or . 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 | 10/22/2015 | + + + | Irritable bowel syndrome with constipation | 10/22/2015 | + + + | Pain in joint, lower leg | 02/29/2012 | + + + | Disturbance in sleep behavior | 02/29/2012 | + + + + + | Overview: ICD10 | + + + + + | CRPS (complex regional pain syndrome), lower limb | 02/14/2012 | + + + + + | Overview: Left, injury 2002, multiple surgical procedures | + + + + + | Gait disturbance | 02/14/2012 | + + + | Muscle pain | 02/14/2012 | + + + + + | Overview: Diffuse with fibromyalgia points positive | + + + + + | Adjustment reaction | 02/14/2012 | + + + Resolved Problems + + + + | Problem | Noted | Resolved | | | Date | Date | + + + + | Nausea and vomiting | 10/22/20 | | | | 15 | 5 | + + + + Family History + + +------+ + | Medical History | Relation | Name | Comments | + + +------+ + | Allergies | Brother | | | + + +------+ + | Asthma | Brother | | | + + +------+ + | Allergies | Father | | | + + +------+ + | Diabetes | Father | | | + + +------+ + | Hypertension | Father | | | + + +------+ + | Alcohol/Drug | Maternal | | | | | Grandfath | | | | | er | | | + + +------+ + | Allergies | Maternal | | | | | Grandfath | | | | | er | | | + + +------+ + | Arthritis | Maternal | | | | | Grandfath | | | | | er | | | + + +------+ + | Asthma | Maternal | | | | | Grandfath | | | | | er | | | + + +------+ + | Stroke | Maternal | | | | | Grandfath | | | | | er | | | + + +------+ + | Arthritis | Maternal | | | | | Grandmoth | | | | | er | | | + + +------+ + | Headache | Maternal | | | | | Grandmoth | | | | | er | | | + + +------+ + | Allergies | Mother | | | + + +------+ + | Depression | Mother | | | + + +------+ + | Headache | Mother | | | + + +------+ + | Hypertension | Mother | | | + + +------+ + | Arthritis | Paternal | | | | | Grandfath | | | | | er | | | + + +------+ + | Cancer | Paternal | | | | | Grandfath | | | | | er | | | + + +------+ + | Arthritis | Paternal | | | | | Grandmoth | | | | | er | | | + + +------+ + | Cancer | Paternal | | | | | Grandmoth | | | | | er | | | + + +------+ + | Diabetes | Paternal | | | | | Grandmoth | | | | | er | | | + + +------+ + + +------+--------+ + | Relation | Name | Status | Comments | + +------+--------+ + | Brother | | | | + +------+--------+ + | Brother | | | | + +------+--------+ + | Father | | | | + +------+--------+ + | Maternal Grandfather | | | | + +------+--------+ + | Maternal Grandmother | | | | + +------+--------+ + | Mother | | | | + +------+--------+ + | Paternal Grandfather | | | | + +------+--------+ + | Paternal Grandmother | | | | + +------+--------+ + [...] | + + + + + | Pneumococcal | | | | | vaccination (1 of 1 | 8 | | | | - PPSV23) | | | | + + + + + | Influenza (Flu) | | 10/02/2008, 09/21/2005 | | | vaccination (#1) | 0 | | | + + + + + Implants + +------+--------+ +--------+--------+--------+ | Implanted | Type | Area | Manufacture | Device | Shelf | Model | | | | | r | | Expira | / | | | | | | Identi | tion | Serial | | | | | | fier | Date | / Lot | + +------+--------+ +--------+--------+--------+ | Bard | | Right: | BARD | | | [id number] | | Port-10/05/2016Implanted: | | Chest | | | | 0 / | | 10/05/2016 by Obdulio Simpson, | | | | | | /VIKY | | (Quantity not on file) | | | | | | 204 | + +------+--------+ +--------+--------+--------+ + + | Description:Not Power | | Injectable, Progress record | | faxed from [facility] | | Hospital in [place], [place], | | [facility] RN | + + + +---+---+ +---+--------+--------+ | Slimtip DrgImplanted: Qty: 1 | | | [facility] | | 01/06/ | [id number] | | on 12/05/2018 by Daniel, | | | MEDICAL [place] | | 2020 | 0-50A | | Alex Alba MD,PhD at [facility] | | | | | | /[id number] | | INPATIENT REV LOC | | | | | | 371 / | + +---+---+ +---+--------+--------+ + + | Description:Level 4 | + + + +---+---+ +---+---+--------+ | Slimtip DrgImplanted: Qty: 1 | | | [facility] JESSICA | | | [id number] | | on 12/05/2018 by Daniel, | | | MEDICAL SC | | | 0-50A | | Alex Alba MD,PhD at [facility] | | | | | | /[id number] | | INPATIENT REV LOC | | | | | | 374 / | + +---+---+ +---+---+--------+ + + | Description:Level5 | + + + +---+--------+ +---+--------+--------+ | Implantable Pulse | | Right: | ST JESSICA | | 04/10/ | [id number] | | GeneratorImplanted: Qty: 1 on | | Other | MEDICAL [place] | | 2020 | /[id number] | | 12/05/2018 by Daniel, | | | | | | 2.1 / | | Alex Alba MD,PhD at [facility] | | | | | | | | INPATIENT REV LOC | | | | | | | + +---+--------+ +---+--------+--------+ + + | Description:Right lower Back | + + Results Not on filefrom Last 3 Months Insurance + +--------+ +--------+ + +--------+ | Payer | Benefi | Subscriber | Effect | Phone | Address | Type | | | t Plan | ID | [place] | | | | | | / | | Dates | | | | | | Group | | | | | | + +--------+ +--------+ + +--------+ | MEDICARE | MEDICA | xxxxxxxxxxx | 07/15/20 | [phone] | [address] | Medica | | | RE A & | | 15-Pre | 1 | [id number] | re | | | B | | sent | | [place] | | | | | | | | [id number] | | + +--------+ +--------+ + +--------+ | HYDRAULIC ENGINEER MEDICAID | HYDRAULIC ENGINEER | xxxxxxxx | 11/14/19 | | | Medica | | | [place]AST[place] | | 19-Pre | | | id | | | [place] | | sent | | | | + +--------+ +--------+ + +--------+ + +--------+ +--------+ + + | Guarantor Name | Accoun | Relation to | Date | Phone | Billing Address | | | t Type | Patient | of | | | | | | | | | | + +--------+ +--------+ + + | Tracie Farah | Person | Self | [birth year] | [address] | | Anika | al/Fam | | 1990 | [phone] | [place] [address] | | | evita | | | 6 (Home) | | + +--------+ +--------+ + + Advance Directives + + + + + | Code Status | Date | Date | Comments | | | Activated | Inactivated | | + + + + + | Full Code | 12/05/2018 | 12/05/2018 | | | | 6:14 AM | 7:06 PM | | + + + + + + + + +---+ | | | | | + + + +---+ | Full Code | 03/18/2017 | 03/23/2017 | | | | 9:55 PM | 8:52 PM | | + + + +---+ + + + +---+ | | | | | + + + +---+ | Full Code | 12/14/2016 | 12/14/2016 | | | | 7:36 AM | 3:58 PM | | + + + +---+ + + + +---+ | | | | | + + + +---+ | Full Code | 10/21/2015 | 10/26/2015 | | | | 9:08 PM | 12:07 AM | | + + + +---+
--- OUTSIDE RECORDS SUMMARY | ~2020-06-02 | XMS | Encounter Summary ---
Demographics + + + | Address | [address] | | | [place] [address] | + + + | Home Phone [...] Providers + +------+ + | Care City Dispatch Supervisor Name | Role | Phone | [...] | | | | [address] | [facility] [place] | | | | | for Health and | [address] | | | | | Healing, [address] | [phone] | | | | | [place], [place] | | | | | | [address] | | | | | | [phone] | | | +--------+ + + + [...]
--- OUTSIDE RECORDS SUMMARY | ~2020-06-02 | XMS | Encounter Summary ---
Demographics + + + | Address | [address] | | | [place] [address] | + + + | Home Phone [...] Providers + +------+ + | Care Vp Global Name | Role | Phone | + [...] | Complex | Alex Alba, | [facility] [address] | | | | | regional | ,PhD [address] | Pavilion | | | | | pain | [address] | [address] | | | | | syndrome | [address] | [address], | | | | | type 1 of | Rd | Basement | | | | | left lower | [place], [place] | [place], [place] | | | | | extremity | [address] | [address] | | | | | Muscle pain | Phone: | Phone: | | | | | Procedures | [phone] | [phone] | | | | | NM BONE | Fax: | Fax: | | | | | &/OR JOINT | [phone] | [phone] | | | | | IMAGING | [...] | | | | | | | WA BONE | | | | | | | IMAGING, | | | | | | | LIMITED AREA | | | | | | | WA BONE | | | | | | | IMAGING | | | | | | | (SPECT) | | | +--------+--------+ + + + + Encounter Details +--------+ + + + + | Date | Type | Department | Care Team | Description | +--------+ + + + + | 12/27/ | Ancillary | [facility] Comprehensive | Alex Sanchez, | | | 2018 | Orders | Pain Center at | ,PhD [address] [facility] | | | | | [facility] | [address] | | | | | [address] | [place], [place] | | | | | [facility] | [address] | | | | | and Martina, | [phone] | | | | | [facility] | | | | | | Floor [place], [place] | | | | | | [address] | | | | | | [phone] | | | +--------+ + + + [...] Note | + + | Service Account, [facility]cent[facility] Res In Interface - 12/28/2017 11:43 AM [...]
--- OUTSIDE RECORDS SUMMARY | ~2020-06-02 | XMS | Encounter Summary ---
Demographics + + + | Address | [address] | | | [place] [address] | + + + | Home Phone [...] Team Providers + +------+ + | Care Bike Assembler Name | Role | Phone | + +------+ + | Justo Vazquez MD | PCP | | + +------+ + Encounter Details +--------+ + + + + | Date | Type | Department | Care Team | Description | +--------+ + + + + | 05/18/ | Telephone | [facility] | Alex Sanchez, | | | 2019 | | Pain Center at | ,PhD [address] | | | | | [facility] | [address] | | | | | [address] | [place], [place] | | | | | [place] [facility] | [address] | | | | | and Healing, | [phone] | | | | | | | | | | | Floor [place], [place] | | | | | | [address] | | | | | | [phone] | | | +--------+ + + + [...]
--- OUTSIDE RECORDS SUMMARY | ~2020-06-02 | XMS | Encounter Summary ---
Demographics + + + | Address | [address] | | | [place] [address] | + + + | Home Phone [...] Team Providers + +------+ + | Care Radiophone Operator Name | Role | Phone | [...] | | Pain | Complex | Ilene, MEDICAL AND HEALTH SERVICES MANAGER | Catriona M, | | | | Management | regional | [address] | PS[address] D [address] | | | | | pain | [address] | [address] | | | | | syndrome | [place], [place] | [place], [place] | | | | | type 1 of | [address] | [address] Phone: | | | | | left lower | Phone: | [phone] | | | | | extremity | [phone] | Fax: | | | | | Intractable | Fax: | [phone] | | | | | cyclical | [phone] | | | | | | vomiting [...] | | | | | | | SC | | | | | | | PSYCHIATRIC | | | | | | | DIAGNOSTIC | | | | | | | EVAL, NO MED | | | | | | | [facility] SC | | | | | | | PSYCH TSTNG | | | | | | | PSYCH/PHYS | | | | | | | SC | | | | | | | PSYCHOTHERAP | | | | | | | Y, 45 MIN | | | +--------+---------+ + + + + Encounter Details +--------+---------+ + + + | Date | Type | Department | Care Team | Description | +--------+---------+ + + + | 10/11/ | Office | [facility] | Jamel Bravo, | 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 [address] | with mixed anxiety | | | | [facility] | [place], [place] | and depressed mood | | | | and Healing, | [address] | (Primary Dx); | | | | | [phone] | 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 The patient was referred for pain [...] by physician. Concentration is 150mg/mL. Compounded by [employer] ([phone]), Disp: , Rfl: 5 lamoTRIgine 200 mg [...] oral recon soln, Take as directed by [facility]- 2 gallon bowel prep, Disp: 8000 mL, [...] e. 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 For enjoyment the patient watches TV, reads, [...] time I spent was approximately 50 minutes atfm-uw-zlbu with the patient and approxima tely 1 hour 40 minutes of qvx-quzi-gh-face testing, interpreting and synthesizing results. Jamel Bravo, PhD [facility] 15TH FLOOR [address] [facility] Mail Code: [id number] [place] [address] documented in this en counter [...]
--- OUTSIDE RECORDS SUMMARY | ~2020-06-02 | XMS | Encounter Summary ---
Demographics + + + | Address | [address] | | | [place] [address] | + + + | Home Phone [...] Team Providers + +------+ + | Care Household Appliance Repairer Name | Role | Phone | + +------+ + | Justo Vazquez MD | PCP | | + +------+ + Encounter Details +--------+ + + + + | Date | Type | Department | Care Team | Description | +--------+ + + + + | 04/23/ | Anesthesia | [facility] | Aleta Rebollar MD [address] | | | 2019 | Event | [address] | [address] | | | | | [place] [facility] | [place], [place] | | | | | and Healing, | [address] | | | | | | [phone] | | | | | Floor [place], [place] | | | | | | [address] | | | | | | [phone] | | | +--------+ + + + [...]
--- OUTSIDE RECORDS SUMMARY | ~2020-06-02 | XMS | Encounter Summary ---
Demographics + + + | Address | [address] | | | [place] [address] | + + + | Home Phone [...] | + + +---------+ + | Patricia Colni | ECON | Unknown | | + + +---------+ + Care Team Providers + +------+ + | Care Breakdown Mill Operator Name | Role | Phone | [...] | | syndrome | [address] | [facility] | | | | | type 1 of | Rd | Rd [place], | | | | | left lower | [place], [place] | [place] | | | | | extremity | [address] | [address] | | | | | Procedures | Phone: | Phone: | | | | | REQUEST TO | [phone] | [phone] | | | | | SURGERY | Fax: | Fax: | | | | | AUTOMOTIVE ELECTRICAL HELPER | [phone] | [phone] | +--------+---------+ + + + + Encounter Details +--------+---------+ + + + | Date | Type | Department | Care Team | Description | +--------+---------+ + + + | 09/28/ | Office | [facility] Comprehensive | Yun Frey, CONTACT LENS TECHNICIAN | Complex regional | | 2018 | Visit | Pain Center at | [address] | pain syndrome type 1 | | | | [place] | [place], [place] | of left lower | | | | [address] | [address] | extremity (Primary | | | | [facility] | [phone] | Dx); Arthralgia of | | | | and Healing, | | left lower leg | | | | | | | | | | [place], [place] | | | | | | [address] | | | | | | [phone] | | | +--------+---------+ + + + [...] Dr. Sanchez on 10/02/2018. -Please contact the [facility]'s rep if you have any further question [...] PM PST September 28, 2018 Tracie Farah [id number] [facility] Comprehensive Pain Center Return Visit [...] a pain drawing which I reviewed. [facility] Questionnaire Follow-up Patient 10/10/2017 Please describe [...] PROCEDURE: DRG Spinal Cord Stimuation Trial with [employer]. Angie[employer] List system LEVEL/LATERALITY: left L4, L5. Till date, [...] turned up to 7%. After seeing th senior sales representative today and killian ing adjustments, [...] Hemroidectomy Trial spinal cord stimulator leads 08/02/2012 [facility], Surgeon: Janak Riojas MD Cholecystectomy [...] the vein (IV) every eight hour s. 7465-3311-98 COMPOUNDED MED RX CONTROLLED (SEE ADMIN INSTRUCT [...] by physician. Concentration is 150mg/mL. Compounded by [facility] ) KETOROLAC IM Inject into the [...] (IV) every twel ve hours as needed. 0050-2136-41 ONDANSETRON 4 MG DISINTEGRATING TABLET Dissolve 1 tablet in mouth every twelve hours as nee ded. PANTOPRAZOLE 40 MG TABLET,DELAYED RELEASE Take 40 mg by mouth once daily. PEG 3350-ELECTROLYTES 236 GRAM-22.74 GRAM-6.74 GRAM-5.86 GRAM SOLUTION Take as directed by [facility] Digestive [facility]- 2 gallon bowel prep POLYETHYLENE GLYCOL 3350 [...] been given programming opti ons by the [employer]'s device senior sales representative, Michele. At this time, there is no complication from the DRG trial. Recommendations/Plan: 1. Recommend to keep her appointment with Dr. Sanchez on 10/02/2018. 2. To contact the [employer]'s rep if she has any further question on programming. 09/28/2018: I, Dayana Ivan, am functioning as a medical front desk specialist for Yun Frey NP. I have reviewed and verified the above scribed note of my visit with this patient as record ed by Ms. Dayana Ivan. Jeanine Frey (Mr.) MSN, ACNP- Nurse Practitioner Acute [facility] [address] [place] [id number] documented in this enco unter Plan of [...]
--- OUTSIDE RECORDS SUMMARY | ~2020-06-02 | XMS | Encounter Summary ---
Demographics + + + | Address | [address] | | | [place] [address] | + + + | Home Phone [...] Team Providers + +------+ + | Care Industrial Management Teacher Name | Role | Phone | [...] + | 09/14/ | Telephone | [facility] Ilene | Alex Sanchez, | Education procedure | | 2018 | | Pain Center at | ,PhD [address] | (preprocedure | | | | [facility] | [address] | education [facility]) | | | | [address] | [place], [place] | | | | | [facility] | [address] | | | | | and Healing, | [phone] | | | | | | | | | | | Floor [place], [place] | | | | | | [address] | | | | | | [phone] | | | +--------+ + + + [...]
--- OUTSIDE RECORDS SUMMARY | ~2020-06-02 | XMS | Encounter Summary ---
Demographics + + + | Address | [address] | | | [place] [address] | + + + | Home Phone [...] + +------+ + | Care Professor Of Communication Name | Role | Phone | + [...] [address] | | | | | [facility] | [facility], | | | | | [address] | [place] [address] | | | | | [facility] | [phone] | | | | | and Healing, | | | | | | Building | | | | | | [place], [place] | | | | | | [address] | | | | | | [phone] | | | +--------+ + + + [...]
--- OUTSIDE RECORDS SUMMARY | ~2020-06-02 | XMS | Encounter Summary ---
Demographics + + + | Address | [address] | | | [place] [address] | + + + | Home Phone [...] Team Providers + +------+ + | Care Loss Control Representative Name | Role | Phone | [...] | Diagnoses | Beulah | Edu Pt Skin Care Therapist | | | | Therapy | CRPS | Janak Martinez MD | [address] | | | | | (complex | [address] | | | | | regional | [address] | Mailcode: | | | | | pain | Mailstop | [facility] | | | | | syndrome), | [id number] | for Health | | | | | lower limb | [place], [place] | and Healing, | | | | | Gait | [address] | Building 1 | | | | | disturbance | Phone: | [place], [place] | | | | | Muscle pain | [phone] | [address] | | | | | Procedures | Fax: | Phone: | | | | | PHYSICAL | [phone] | [phone] | | | | | THERAPY | [...] regional pain | | | | [facility] | [place] [address] | syndrome), lower | | | | [address] | [phone] | limb (Primary Dx) | | | | [facility] | | | | | | and Healing, | Specialist, Edu | | | | | Building 1, 1st | Exercise [address] | | | | | Floor [place], [place] | [address] [place], | | | | | [address] | [place] [address] | | | | | [phone] | | | +--------+---------+ + + + [...] might be different f rom the original. [id number] BRODY FARAH Date of : 1990 Start of care: 02/14/2012 Date of onset: 02/14/2012 Referring/Attending Practitioner: Janak Riojas MD . Primary/Referral Diagnosis/ICD-9: 355.71B CRPS (complex regional pain syndrome), lower limb Insurance: Payor: [facility] Plan: BCBS OUT OF STATE Product Type: PP O Service period from: 02/14/2012 to: 08/12/2012 Number visits used/authorized: 02/23 [facility] PHYSICAL THERAPY PROGRESS NOTE [...] change in their status. Guillermo Sanon MSPT [facility] Outpatient Rehabilitation Services Mailcode: Ch3p [address] [facility], [address] [place] [phone] documented in this encounter Plan of Treatment Not on filedocumented as of this encounter Procedures + +--------+ + + + | Procedure Name | Priori | Date/Time | Associated Diagnosis | Comments | | | ty | | | | + +--------+ + + + | [place] THERAPEUTIC | Routin | 05/24/2012 | CRPS (complex | | | EXERCISES | e | 6:23 PM | regional pain | | | | | PDT | syndrome), lower | | | | | | limb | | + +--------+ + + + | [place] THERAPEUTIC | Routin | 05/24/2012 | CRPS [...]
--- OUTSIDE RECORDS SUMMARY | ~2020-06-02 | XMS | Encounter Summary ---
Demographics + + + | Address | [address] | | | [place] [address] | + + + | Home Phone [...] Providers + +------+ + | Care Cable Reeler Name | Role | Phone | + [...] | | 2017 | | Center at [facility] [address] | | | | | | [facility] | | | | | | for Health and | | | | | | Healing, Building 2 | | | | | | [place], [place] | | | | | | [address] | | | | | | [phone] | | | +--------+--------+ + + + [...]
--- OUTSIDE RECORDS SUMMARY | ~2020-06-02 | XMS | Encounter Summary ---
Demographics + + + | Address | [address] | | | [place] [address] | + + + | Home Phone [...] Team Providers + +------+ + | Care Media Account Executive Name | Role | Phone | + +------+ + | Justo Vazquez MD | PCP | | + +------+ + Encounter Details +--------+ + + + + | Date | Type | Department | Care Team | Description | +--------+ + + + + | 06/07/ | Telephone | [facility] | Alex Sanchez, | | | 2019 | | Pain Center at | ,PhD [address] | | | | | [facility] | [address] | | | | | [address] | [place], [place] | | | | | [place] for [facility] | [address] | | | | | and Healing, | [phone] | | | | | | | | | | | Floor [place], [place] | | | | | | [address] | | | | | | [phone] | | | +--------+ + + + [...]
--- OUTSIDE RECORDS SUMMARY | ~2020-06-02 | XMS | Encounter Summary ---
Demographics + + + | Address | [address] | | | [place] [address] | + + + | Home Phone [...] Providers + +------+ + | Care Agriculture Manager Name | Role | Phone | [...] | | | | | Giuliana Maldonado [place], | | | | | | [place] [address] | | | +--------+ + + + [...]
--- OUTSIDE RECORDS SUMMARY | ~2020-06-02 | XMS | Encounter Summary ---
Demographics + + + | Address | [address] | | | [place] [address] | + + + | Home Phone [...] Team Providers + +------+ + | Care Catering Sales Manager Name | Role | Phone [...] | | 2015 | | Center at [facility] [address] Junior Torres MD | Treatment Planning | | | | [address] | | | | | | for Health and | | | | | | [facility], [facility] 2 | | | | | | [place], [place] | | | | | | [address] | | | | | | [phone] | | | +--------+ + + + [...]
--- OUTSIDE RECORDS SUMMARY | ~2020-06-02 | XMS | Encounter Summary ---
Demographics + + + | Address | [address] | | | [place] [address] | + + + | Home Phone [...] Team Providers + +------+ + | Care Grading Clerk Name | Role | Phone | [...] Pharmacy | | | | | | [address] | | | | | | Loop [place], [place] | | | | | | [address] | | | | | | [phone] | | | +--------+ + + + [...]
--- OUTSIDE RECORDS SUMMARY | ~2020-06-02 | XMS | Encounter Summary ---
Demographics + + + | Address | [address] | | | [place] [address] | + + + | Home Phone [...] Team Providers + +------+ + | Care Science Tutor Name | Role | Phone | [...] ogy | | Ava Torres, | [address]2 [address] | | | | | Constipation | [address] | [address] | | | | | , | [address] | [place] for | | | | | unspecified | [address] | Health and | | | | | constipation | [facility] [place] | Healing, | | | | | type | [address] | Building 2 | | | | | Procedures | | [place], [place] | | | | | CONSULT TO | | [address] | | | | | GI PROCEDURE | | Phone: | | | | | UNIT: | | [phone] | | | | | ANORECTAL | | Fax: | | | | | MANOMETRY | | [phone] | | | | | [place] ANAL | | | | | | [...] | ogy | | [place], | Chh[address] | | | | | Gastroparesi | Allegra Nieto, | [address] | | | | | s | [place] [address] | Center for | | | | | | [address] | Health and | | | | | | [place], | Healing, | | | | | | [place] [address] | Building 2 | | | | | | Phone: | [place], [place] | | | | | | [phone] | [address] | | | | | | Fax: | Phone: | | | | | | [phone] | [phone] | | | | | | | Fax: | | | | | | | [phone] | +--------+--------+ + + + + Encounter Details +--------+---------+ + + + | Date | Type | Department | Care Team | Description | +--------+---------+ + + + | 08/10/ | Office | Digestive Health | Ava Carbajal | Constipation, | | 2015 | Visit | Center at [facility] [address] | MD Melissa | unspecified | | | | [facility] | | constipation type | | | | for Health and | | (Primary Dx) | | | | Healing, Building 2 | | | | | | [place], [place] | | | | | | [address] | | | | | | [phone] | | | +--------+---------+ + + + [...] in their attached note. Celia Lin MD Cleaning Laborerplayers club representative Division of Gastroenterology & Hepatology [facility] va Carbajal MD - 08/09/2016 8:40 PM PDT Gastroenterology Initial Clinic Note 08/09/2016 CHIEF COMPLAINT/IDENTIFICATION: "Gastroparesis"-Nausea emesis and abdominal pain -SECOND O GERMAINE Dr. Flores-Radha [facility] PCP: HANDY Villalpando HISTORY OF PRESENT ILLNESS rTacie Farah is a 26 F PMHx depression, [...] Dr. Flores in [facility] at [facility]. Patient has hx of GERD which [...] had CT abdomen w contrast done at [facility] on 10/23/15 showing large stool burden [...] GI MDS: Dr. Nyla Garcia GI Dr. [facility] LABS: -increased CRP 06/19/16: Lipase-normal (8) B-HCG [...] form versus functional syndrome. 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
--- OUTSIDE RECORDS SUMMARY | ~2020-06-02 | XMS | Encounter Summary ---
Demographics + + + | Address | [address] | | | [place] [address] | + + + | Home Phone [...] Team Providers + +------+ + | Care Licensed Psychologist Name | Role | Phone | [...] | | | | | extremity | [address] | [address] | | | | | Procedures | Phone: | Phone: | | | | | REQUEST TO | [phone] | [phone] | | | | | SURGERY | Fax: | Fax: | | | | | TRANSFER STATION OPERATOR | [phone] | [phone] | +--------+---------+ + + + + Encounter Details +--------+---------+ + + + | Date | Type | Department | Care Team | Description | +--------+---------+ + + + | 12/22/ | Office | [facility] Comprehensive | Ilene Bright, | Complex regional | | 2019 | Visit | Pain Center at | TOWER OPERATOR [address] | pain syndrome type 1 | | | | [facility] | [place], [place] | of left lower | | | | [address] | [address] | extremity; S/P | | | | [place] for [facility] | [phone] | insertion of spinal | | | | and Healing, | | cord stimulator | | | | Building | | | | | | Floor [place], [place] | | | | | | [address] | | | | | | [phone] | | | +--------+---------+ + + + [...] r your reference. - The [facility] sales representatives met with you and made adjustments to your stimulator. I spoke w ith the sales representatives and she is happy with your progress [...] call this [facility] into the [facility] in [place]. It was great to see you again, documented in this encounter Progress Notes Ilene Bright, TOWER OPERATOR - 12/22/2018 11:00 AM PSTFormatting of this note might be different fr om the original. [facility] Return Visit Date: 12/22/2018 Chief Complaint Patient presents with Low back pain Pain in left leg History of Present Illness: Tracie Farah is a 28 year old female, whose last appoi ntment at the [facility] was 12/07/2018 following her [...] order to tolerate her incision site pain. GAME MASTER Brief Pain Inventory: (ten= worst possible pain [...] Hemroidectomy Trial spinal cord stimulator leads 08/02/2012 [facility], Surgeon: Janak Riojas MD Cholecystectomy Appendectomy [...] History Social History Narrative Single. Goes to [employer] with a light load. Has been working at [employer], can' t work on [employer]. Has roommates. Allergies Allergen Reactions Morphine Anaphylaxis [...] GRAM-5.86 GRAM SOLUTION Take as directed by [facility] Digestive Health- 2 gallon bowel prep [...] with nausea Abdominal pain Abdominal scar neuroma [facility] CLINICAL PROTOCOL PATIENT (CLNPRO) - Implanted [...] and summary of old medical records (source: [facility], [facility] Everywhere), as summarized in the [...] for her surgical incision. The [facility] sales representatives visited the patient in order to make [...] ed by Collin Salomon. Ilene Childs DNP, TOWER OPERATOR-C [facility] [address] [place] [address] mith, Charline Torres MA - 12/22/2018 11:00 [...]
--- OUTSIDE RECORDS SUMMARY | ~2020-06-02 | XMS | Encounter Summary ---
Demographics + + + | Address | [address] | | | [place] [address] | + + + | Home Phone [...] Providers + +------+ + | Care Automatic I Threading Machine Feeder Name | Role | Phone | [...] | Pain Center at | [address] | | | | | [facility] | [address] [address] | | | | | [address] | [place], [place] | | | | | Center for Health | [address] | | | | | and Healing, | [phone] | | | | | [facility] | | | | | | Floor [place], [place] | | | | | | [address] | | | | | | [phone] | | | +--------+ + + + [...]
--- OUTSIDE RECORDS SUMMARY | ~2020-06-02 | XMS | Encounter Summary ---
Demographics + + + | Address | [address] | | | [place] [address] | + + + | Home Phone [...] Providers + +------+ + | Care Field Assessor Name | Role | Phone | + +------+ + | Justo Vazquez MD | PCP | | + +------+ + Encounter Details +--------+ + + + + | Date | Type | Department | Care Team | Description | +--------+ + + + + | 05/14/ | Telephone | [facility] | Alex Sanchez, | | | 2019 | | Pain Center at | ,PhD [address] | | | | | [facility] | [address] | | | | | [address] | [place], [place] | | | | | [place] for [facility] | [address] | | | | | and Healing, | [phone] | | | | | | | | | | | Floor [place], [place] | | | | | | [address] | | | | | | [phone] | | | +--------+ + + + [...]
--- OUTSIDE RECORDS SUMMARY | ~2020-06-02 | XMS | Encounter Summary ---
Demographics + + + | Address | [address] | | | [place] [address] | + + + | Home Phone [...] Providers + +------+ + | Care Orthopedic Technician Name | Role | Phone | + +------+ + | Justo Vazquez MD | PCP | | + +------+ + Encounter Details +--------+ + + + + | Date | Type | Department | Care Team | Description | +--------+ + + + + | 12/28/ | Telephone | [facility] | Ilene Bright, | | | 2019 | | Pain Center at | WHISKEY PROOF READER [address] | | | | | [facility] | [place], [place] | | | | | [address] | [address] | | | | | [place] for [facility] | [phone] | | | | | and Healing, | | | | | | | | | | | | Floor [place], [place] | | | | | | [address] | | | | | | [phone] | | | +--------+ + + + [...]
--- OUTSIDE RECORDS SUMMARY | ~2020-06-02 | XMS | Encounter Summary ---
Demographics + + + | Address | [address] | | | [place] [address] | + + + | Home Phone [...] Team Providers + +------+ + | Care Attorney Law Clerk Name | Role | Phone | [...] + | 09/30/ | Telephone | [facility] Ilene | Ilene Bright, | Phone communication | | 2017 | | Pain Center at | REGIONAL RECRUITER [address] | | | | | [facility] | [place], [place] | | | | | [address] | [address] | | | | | [facility] | [phone] | | | | | and Healing, | | | | | | Building | | | | | | Floor [facility] [place] | | | | | | [address] | | | | | | [phone] | | | +--------+ + + + [...]
--- OUTSIDE RECORDS SUMMARY | ~2020-06-02 | XMS | Encounter Summary ---
Demographics + + + | Address | [address] | | | [place] [address] | + + + | Home Phone [...] Team Providers + +------+ + | Care Denture Contour Wire Specialist Name | Role | Phone | + +------+ + | Justo Vazquez MD | PCP | | + +------+ + Encounter Details +--------+ + + + + | Date | Type | Department | Care Team | Description | +--------+ + + + + | 01/09/ | Documentati | Orthopaedics | Ranjeet Amanda, | | | 2018 | on | Faculty at [place] | [address] | | | | | for Health and | [place], [place] | | | | | Healing [address] | [address] | | | | | Ave [place] for | [phone] | | | | | Health and Healing, | | | | | | | | | | | | Floor [facility] [place] | | | | | | [address] | | | | | | [phone] | | | +--------+ + + + [...]
--- OUTSIDE RECORDS SUMMARY | ~2020-06-02 | XMS | Encounter Summary ---
Demographics + + + | Address | [address] | | | [place] [address] | + + + | Home Phone [...] Team Providers + +------+ + | Care Temperature Control Inspector Name | Role | Phone | [...] (plan of care) | | | | [facility] | [address] | | | | | [address] | [place], [place] | | | | | [facility] | [address] | | | | | and Healing, | [phone] | | | | | | | | | | | Floor [place], [place] | | | | | | [address] | | | | | | [phone] | | | +--------+ + + + [...]
--- OUTSIDE RECORDS SUMMARY | ~2020-06-02 | XMS | Encounter Summary ---
Demographics + + + | Address | [address] | | | [place] [address] | + + + | Home Phone [...] Team Providers + +------+ + | Care Impersonator Character Name | Role | Phone | + [...] | | | | | Procedures | [place], [place] | | | | | | MR | [id number] | | | | | | ENTEROGRAPHY [...] | | | | | Procedures | [place], [place] | | | | | | MR | [id number] | | | | | | ENTEROGRAPHY [...] | 2017 | Encounter | Services at [facility] | [address] | | | | | [address] | [place], [place] | | | | | [place] [place] | [address] | | | | | [facility] | [phone] | | | | | [place], [place] | | | | | | [address] | | | | | | [phone] | | | +--------+ + + + [...]
--- OUTSIDE RECORDS SUMMARY | ~2020-06-02 | XMS | Encounter Summary ---
Demographics + + + | Address | [address] | | | [place] [address] | + + + | Home Phone | | + + + | Preferred Language | Unknown | + + + | Marital Status | Single | + + + | Adventism Affiliation | [id number] | + + + | Race | Unknown | + + + | Ethnic Group | Unknown | + + + Author + + + | Author | [facility] | | | and [place] | + + + | Organization | [facility] | | | and [place] [...] [place] | | | | | [address] | | + + + + + | Bryant Farah | ECON | Unknown | | + + + + + Care Team Providers + +------+ + | Care C Developer Name | Role | Phone | + +------+ + PCP | Unavailable | + +------+ + Encounter Details +--------+ + + + + | Date | Type | Department | Care Team | Description | +--------+ + + + + | 06/22/ | Emergency | [facility] | Chung Portillo | Nondiabetic | | 2016 | | [facility]ENTER | DO [address] | gastroparesis | | | | EMERGENCY CENTER | [address] | | | | | [address] | [place], [place] | | | | | [place], [place] | [address] | | | | | [address] | [phone] | | | | | [phone] | | | +--------+ + + + [...] 06/23/161053 Date of Service: 06/23/161053 Status: Signed Milling Machine Set Up Operator: Devante Guerrero MD (Physician) Procedures Additional Documentation Procedures Pharmacy called to clarify viscous lidocaine order - there was no frequency specified. I a dvised Q 4 hours PRN. Devante Guerrero MD 06/23/161053 John Mcgee PA-C - 06/22/2016 7:25 PM PDT ED Provider Notes by John Leonard PA-C at 06/22/161924 Author: John Leonard PA-C Service: Emergency Department Author Type: Physician Repeat Photocomposing Machine Operator - Certified Filed: 06/22/162104 Date of Service: 06/22/161924 Status: Signed Milling Machine Set Up Operator: John Leonard PA-C (Physician Repeat Photocomposing Machine Operator - Certified) Cosigner: Chung Portillo DO at 06/22/[address] [facility] EMERGENCY DEPARTMENT History of Present [...] department evaluations and treatment with Reglan at [facility] and has come to [facility] for, further evaluation and relief. Patient relates that she does not have a juvenile corrections officer follow-up or provider. Past Medical History Diagnosis [...] TRIAL; Surgeon: Ulices Hayes MD; Locati on: [facility] ENDOSCOPY; Service: Pain Management; Laterality: N/A; 10:30 [...] Historical Provider FLUoxetine (PROZAC) 20 MG capsule 02/28/13 06/22/16 Historical Provider HYDROcodone-acetaminophen (NORCO) 10-325 MG per [...] her the treatment plan and what would mer tute a return to emergency department. Patient is afebrile and nontoxic-appearing at this ti ar. Records Reviewed Nursing notes. Labs & Radiology Results Laboratory Evaluation Results Procedure Component Value Ref Range Date/Time Lactic acid [[id number]] Collected: 06/22/161850 Order Status: Completed Specimen Information: Blood Updated: 06/22/162010 LACTIC ACID 1.2 0.4 - 2.0 mmol/L Magnesium [[id number]] Collected: 06/22/161850 Order Status: Completed Specimen Information: Blood Updated: 06/22/162008 MAGNESIUM 2.1 1.7 - 2.4 mg/dL Phosphorus [[id number]] Collected: 06/22/161850 Order Status: Completed Specimen Information: Blood Updated: 06/22/162008 PHOSPHORUS 3.6 2.3 - 4.8 mg/dL Lipase [[id number]] Collected: 06/22/161850 Order Status: Completed Specimen Information: Blood Updated: 06/22/161926 LIPASE 103 73 - 393 U/L Comprehensive metabolic panel [[id number]] (Abnormal) Collected: 06/22/161850 Order Status: Completed Specimen [...] 65 U/L EGFR >60 >60 mL/min/1.73m2 Amylase [[id number]] Collected: 06/22/161850 Order Status: Completed Specimen Information: Blood Updated: 06/22/161926 AMYLASE 39 25 - 115 U/L C-reactive protein [[id number]] Collected: 06/22/161850 Order Status: Completed Specimen Information: Blood Updated: 06/22/161926 CRP <0.3 <0.5 mg/dL CBC with differential [[id number]] Collected: 06/22/161850 Order Status: Completed Specimen Information: [...] K/uL Urinalysis (reflex to micro/reflex to culture) [[id number]] Collected: 06/22/161848 Order Status: Completed Specimen Information: Urine, Clean Catch Updated: 06/22/16 19 09 COLOR UA STRAW CLARITY CLEAR Specific [place], UA 1.005 1.002 - 1.030 LEUKOCYTE ESTERASE NEGATIVE NEGATIVE NITRITE NEGATIVE NEGATIVE UROBILINOGEN NORMAL <1.1 mg/dL PROTEIN NEGATIVE NEGATIVE mg/dL PH,URINE 7.0 5.0 - 8.0 BLOOD NEGATIVE NEGATIVE KETONES NEGATIVE NEGATIVE mg/dL BILIRUBIN NEGATIVE NEGATIVE GLUCOSE NEGATIVE NEGATIVE mg/dL Urine Test [[id number]] Collected: 06/22/161848 Order Status: Completed Specimen Information: [...] as soon as possible for a visit [address] [place] [address] Allegra Chaudhary PA-C In 1 week [address] [place] [id number] [facility] Emergency Department If symptoms worsen [address] [place] [address] [id number] Discharge Medications: Discharge Medication List as of [...] 06/22/161745 Date of Service: 06/22/161745 Status: Signed Milling Machine Set Up Operator: Sd Comer RN (Registered Nurse) Patient given [...] EXTERNAL | | | | performed at [facility];888 | K/uL | LAB | | | | [address];[place] | | | | | | [address] | | | | + + + + + + | Non- | 4.46Comment: Testing | 3.70 - 5.10 | EXTERNAL | | | Red Blood | performed at [facility];888 | M/uL | LAB | | | Cells | [address];[place] | | | | | Counted | [address] | | | | + + + + + + | Hemoglobin | 13.9Comment: Testing | 11.3 - 15.5 | EXTERNAL | | | | performed at [facility];888 | g/dL | LAB | | | | [address];[place] | | | | | | [address] | | | | + + + + + + | Hematocrit, | 41.0Comment: Testing | 34.0 - 46.0 % | EXTERNAL | | | POC | performed at [facility];888 | | LAB | | | | [address];[place] | | | | | | [address] | | | | + + + + + + | MCV | 91.9Comment: Testing | 80.0 - 100.0 fl | EXTERNAL | | | | performed at [facility];888 | | LAB | | | | [address];[place] | | | | | | [address] | | | | + + + + + + | MCH | 31.1Comment: Testing | 27.0 - 34.0 pg | EXTERNAL | | | | performed at [facility];888 | | LAB | | | | [address];[place] | | | | | | [address] | | | | + + + + + + | MCHC | 33.9Comment: Testing | 32.0 - 35.5 | EXTERNAL | | | | performed at [facility];888 | g/dL | LAB | | | | [address];[place] | | | | | | [address] | | | | + + + + + + | RDW-CV | 40.3Comment: Testing | 37 - 53 fl | EXTERNAL | | | | performed at [facility];888 | | LAB | | | | [address];[place] | | | | | | [address] | | | | + + + + + + | Platelet | 203Comment: Testing | 150 - 400 K/uL | EXTERNAL | | | Count | performed at [facility];888 | | LAB | | | Plasma | [address];[place] | | | | | | [address] | | | | + + + + + + | MPV | 8.3Comment: Testing | fl | EXTERNAL | | | | performed at [facility];888 | | LAB | | | | [address];[place] | | | | | | [address] | | | | + + + + + + | Differentia | AUTOMATEDComment: | | EXTERNAL | | | l Type | Testing performed at | | LAB | | | | [facility];[address];[place] [address] | | | | + + + + + + | % Segmented | 65.86Comment: Testing | % | EXTERNAL | | | | performed at [facility];888 | | LAB | | | Neutrophils | [address];[place] | | | | | | [address] | | | | + + + + + + | % | 25.52Comment: Testing | % | EXTERNAL | | | Lymphocytes | performed at [facility];888 | | LAB | | | | [address];[place] | | | | | | [address] | | | | + + + + + + | % Monocytes | 6.38Comment: Testing | % | EXTERNAL | | | | performed at [facility];888 | | LAB | | | | [address];[place] | | | | | | [address] | | | | + + + + + + | % | 1.61Comment: Testing | % | EXTERNAL | | | Eosinophils | performed at [facility];888 | | LAB | | | | [address];[place] | | | | | | [address] | | | | + + + + + + | % Basophils | 0.63Comment: Testing | % | EXTERNAL | | | | performed at [facility];[address] | | LAB | | | | [address];[place] | | | | | | [address] | | | | + + + + + + | Absolute | 6.91Comment: Testing | 1.90 - 7.40 | EXTERNAL | | | Segmented | performed at [facility];888 | K/uL | LAB | | | Neutrophils | [address];[place] | | | | | | [address] | | | | + + + + + + | Absolute | 2.68Comment: Testing | 1.00 - 3.90 | EXTERNAL | | | Lymphocytes | performed at [facility];888 | K/uL | LAB | | | | [address];[place] | | | | | | [address] | | | | + + + + + + | Absolute | 0.67Comment: Testing | 0.00 - 0.80 | EXTERNAL | | | Monocytes | performed at [facility];888 | K/uL | LAB | | | | [address];[place] | | | | | | [address] | | | | + + + + + + | Absolute | 0.17Comment: Testing | 0.00 - 0.50 | EXTERNAL | | | Eosinophils | performed at [facility];888 | K/uL | LAB | | | | [address];[place] | | | | | | [address] | | | | + + + + + + | Absolute | 0.07Comment: Testing | 0.00 - 0.10 | EXTERNAL | | | Basophils | performed at [facility];888 | K/uL | LAB | | | | [address];[place], [place] | | | | | | [address] | | | | + + + [...] EXTERNAL | | | | performed at [facility] | | LAB | | | | [address];[place], [place] | | | | | | [address] | | | | + + + [...] EXTERNAL | | | | performed at [facility];888 | | LAB | | | | [address];[place] | | | | | | [address] | | | | + + + [...] LAB | | | | performed at [facility];888 | | | | | | [address];[place], [place] | | | | | | [address] | | | | + + + [...] EXTERNAL | | | | performed at [facility];8 | | LAB | | | | [address];[place] | | | | | | [address] | | | | + + + [...] EXTERNAL | | | | performed at [facility];888 | mmol/L | LAB | | | | [address];[place], [place] | | | | | | [address] | | | | + + + [...] EXTERNAL | | | | performed at [facility];888 | | LAB | | | | [address];[place] | | | | | | [address] | | | | + + + [...] EXTERNAL | | | | performed at [facility];888 | mmol/L | LAB | | | | [address];[place] | | | | | | [address] | | | | + + + + + + | K | 3.8Comment: Testing | 3.5 - 4.9 | EXTERNAL | | | | performed at [facility];888 | mmol/L | LAB | | | | [address];[place] | | | | | | [address] | | | | + + + + + + | Cl | 104Comment: Testing | 99 - 109 mmol/L | EXTERNAL | | | | performed at [facility];888 | | LAB | | | | [address];[place] | | | | | | [address] | | | | + + + + + + | CO2 | 27Comment: Testing | 23 - 32 mmol/L | EXTERNAL | | | | performed at [facility];888 | | LAB | | | | [address];[place] | | | | | | [address] | | | | + + + + + + | Anion Gap | 12Comment: Testing | 5 - 20 mmol/L | EXTERNAL | | | | performed at [facility];888 | | LAB | | | | [address];[place] | | | | | | [address] | | | | + + + + + + | Glucose, | 80Comment: Testing | 65 - 99 mg/dL | EXTERNAL | | | Fasting | performed at [facility];888 | | LAB | | | | [address];[place] | | | | | | [address] | | | | + + + + + + | BUN | 4 (L)Comment: Testing | 8 - 25 mg/dL | EXTERNAL | | | | performed at [facility];888 | | LAB | | | | [address];[place] | | | | | | [address] | | | | + + + + + + | Creatinine | 0.83Comment: Testing | 0.50 - 1.00 | EXTERNAL | | | | performed at [facility];888 | mg/dL | LAB | | | | [address];[place] | | | | | | [address] | | | | + + + + + + | BUN/Creatin | 5Comment: Testing | | EXTERNAL | | | ine Ratio | performed at [facility];888 | | LAB | | | | [address];[place] | | | | | | [address] | | | | + + + + + + | Calcium | 9.1Comment: Testing | 8.5 - 10.5 | EXTERNAL | | | | performed at [facility];888 | mg/dL | LAB | | | | [address];[place] | | | | | | [address] | | | | + + + + + + | Protein, | 7.4Comment: Testing | 6.3 - 8.2 g/dL | EXTERNAL | | | Total | performed at [facility];888 | | LAB | | | | [address];[place] | | | | | | [address] | | | | + + + + + + | Albumin | 4.5Comment: Testing | 3.6 - 5.0 g/dL | EXTERNAL | | | | performed at [facility];888 | | LAB | | | | [address];[place] | | | | | | [address] | | | | + + + + + + | Globulin | 3.0Comment: Testing | 1.3 - 4.9 g/dL | EXTERNAL | | | | performed at [facility];888 | | LAB | | | | [address];[place] | | | | | | [address] | | | | + + + + + + | A/G Ratio | 1.5Comment: Testing | 1.0 - 2.4 | EXTERNAL | | | | performed at [facility];888 | | LAB | | | | [address];[place] | | | | | | [address] | | | | + + + + + + | Bilirubin | 0.6Comment: Testing | 0.1 - 1.5 mg/dL | EXTERNAL | | | Total | performed at [facility];888 | | LAB | | | | [address];[place] | | | | | | [address] | | | | + + + + + + | ALP, | 61Comment: Testing | 35 - 115 U/L | EXTERNAL | | | External | performed at [facility];888 | | LAB | | | | [address];[place] | | | | | | [address] | | | | + + + + + + | AST | 7 (L)Comment: Testing | 10 - 45 U/L | EXTERNAL | | | | performed at [facility];888 | | LAB | | | | [address];[place] | | | | | | [address] | | | | + + + + + + | ALT | 20Comment: Testing | 10 - 65 U/L | EXTERNAL | | | | performed at [facility];888 | | LAB | | | | [address];[place] | | | | | | [address] | | | | + + + [...] | | | | | | at [facility];[address];[place] [address] | | | | + + + [...] EXTERNAL | | | | performed at [facility] | | LAB | | | | [address];[place] | | | | | | [address] | | | | + + + + + + | Clarity, | CLEARComment: Testing | | EXTERNAL | | | Urine | performed at [facility];[address] | | LAB | | | | [address];[place] | | | | | | [address] | | | | + + + + + + | Specific | 1.005Comment: Testing | 1.002 - 1.030 | EXTERNAL | | | [place], | performed at [facility];888 | | LAB | | | Urine | [address];[place] | | | | | | [address] | | | | + + + + + + | Leukocyte | NEGATIVEComment: Testing | | EXTERNAL | | | Esterase, | performed at [facility];888 | | LAB | | | Urine | [address];[place] | | | | | | [address] | | | | + + + + + + | Nitrite, | NEGATIVEComment: Testing | | EXTERNAL | | | Urine | performed at [facility];888 | | LAB | | | | [address];[place] | | | | | | [address] | | | | + + + + + + | Urobilinoge | NORMALComment: Testing | mg/dL | EXTERNAL | | | n, Urine | performed at [facility];888 | | LAB | | | | [address];[place] | | | | | | [address] | | | | + + + + + + | Protein, | NEGATIVEComment: Testing | mg/dL | EXTERNAL | | | Urine | performed at [facility];888 | | LAB | | | | [address];[place] | | | | | | [address] | | | | + + + + + + | pH, Urine | 7.0Comment: Testing | 5.0 - 8.0 | EXTERNAL | | | | performed at [facility];888 | | LAB | | | | [address];[place] | | | | | | [address] | | | | + + + + + + | Blood, | NEGATIVEComment: Testing | | EXTERNAL | | | Urine | performed at [facility];888 | | LAB | | | | [address];[place] | | | | | | [address] | | | | + + + + + + | Ketones | NEGATIVEComment: Testing | mg/dL | EXTERNAL | | | | performed at [facility];888 | | LAB | | | | [address];[place] | | | | | | [address] | | | | + + + + + + | Bilirubin, | NEGATIVEComment: Testing | | EXTERNAL | | | Urine | performed at [facility];888 | | LAB | | | | [address];[place] | | | | | | [address] | | | | + + + + + + | Glucose, | NEGATIVEComment: Testing | mg/dL | EXTERNAL | | | Urine | performed at [facility];888 | | LAB | | | | [address];[place], [place] | | | | | | [address] | | | | + + + [...] | | | Ur | performed at [facility] | | LAB | | | | [address];[place], [place] | | | | | | [address] | | | | + + + [...]
--- OUTSIDE RECORDS SUMMARY | ~2020-06-02 | XMS | Encounter Summary ---
Demographics + + + | Address | [address] | | | [place] [address] | + + + | Home Phone [...] Providers + +------+ + | Care Environmental Health Manager Name | Role | Phone | [...] 2015 | | Center at [facility] | MD Melissa | | | | | [address] [facility] | | | | | | for Health and | | | | | | [facility], [address] | | | | | | [place], [place] | | | | | | [address] | | | | | | [phone] | | | +--------+ + + + [...]
--- OUTSIDE RECORDS SUMMARY | ~2020-06-02 | XMS | Encounter Summary ---
Demographics + + + | Address | [address] | | | [place] [address] | + + + | Home Phone [...] Providers + +------+ + | Care Deputy Director Of Nursing Name | Role | Phone | + [...] [address] | | | | | | [place], [place] | | | | | | [address] | | | +--------+ + + + [...]
--- OUTSIDE RECORDS SUMMARY | ~2020-06-02 | XMS | Encounter Summary ---
Demographics + + + | Address | [address] | | | [place] [address] | + + + | Home Phone [...] Team Providers + +------+ + | Care Nonprofit Fundraiser Name | Role | Phone | + +------+ + | Justo Vazquez MD | PCP | | + +------+ + Encounter Details +--------+------+ + + + | Date | Type | Department | Care Team | Description | +--------+------+ + + + | 04/23/ | Lab | Laboratory at [facility] | | Other chronic pain ; | | 2018 | | [address] | | Complex regional | | | | Center for [facility] | | pain syndrome type 1 | | | | and Healing, | | of left lower | | | | Building [address] | | extremity | | | | [place], [place] | | | | | | [address] | | | | | | [phone] | | | +--------+------+ + + + [...] LABORATORY | | Barbiturates >=200 ng/mL | [facility] | | Benzodiazepine >=200 ng/mL Cocaine | [...] + + + | KEVIN SHAH | [address] | [place] [address] | | | SERVICES, LILLIAN | GUILLERMO [...]
--- OUTSIDE RECORDS SUMMARY | ~2020-06-02 | XMS | Encounter Summary ---
Demographics + + + | Address | [address] | | | [place] [address] | + + + | Home Phone [...] Providers + +------+ + | Care Automobile Upholstery Trim Installer Name | Role | Phone | [...] | Diagnoses | [place] | [employer] | | | | Therapy | CRPS | Janak Martinez MD | [address] [address] | | | | | (complex | [address] | | | | | regional | [address] | Mailcode: | | | | | pain | Mailstop | [facility] | | | | | syndrome), | [id number] | for Health | | | | | lower limb | [place], [place] | and Healing, | | | | | Gait | [address] | [address] | | | | | disturbance | Phone: | [place], [place] | | | | | Muscle pain | [phone] | [address] | | | | | Procedures | Fax: | Phone: | | | | | PHYSICAL | [phone] | [phone] | | | | | THERAPY | [...] | | | | [place] | [place] [address] | syndrome), lower | | | | [address] | [phone] | limb (Primary Dx) | | | | [facility] | | | | | | and Healing, | | | | | | Building [address], | | | | | | Floor [place], [place] | | | | | | [address] | | | | | | [phone] | | | +--------+---------+ + + + [...] might be different f rom the original. [id number] BRODY FARAH Date of : 1990 Start of care: 02/14/2012 Date of onset: 02/14/2012 Referring/Attending Practitioner: Janak Riojas MD . Primary/Referral Diagnosis/ICD-9: 355.71B CRPS (complex regional pain syndrome), lower limb Insurance: Payor: [facility] Diligent Board Member Services [facility] Plan: BCBS OUT OF STATE Product Type: PP O Service period from: 02/14/2012 to: 08/12/2012 Number visits used/authorized: 12/26 [facility] PHYSICAL THERAPY PROGRESS NOTE SUBJECTIVE: Age: 21 y.o. Sex: female Chief complaint: No chief complaint on file. 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 She is doing much better ov [facility], possibly because she finished school and so has less stress. She stopped using crutch es in early April (18 days ago) which is less stressful. Now she is working at [employer] 2-3 hours per week, and spends a [...] sometimes pain meds. Social History: lives in [place], 22 years old, not working currently, [...] or concerns about therapy: she lives in [place]. She is r equesting family members [...] change in their status. Guillermo Sanon MSPBren [facility] Outpatient Rehabilitation Services Mailcode: [facility] [address] [facility], 1st Floor [facility] [address] documented in this encounter [...]
--- OUTSIDE RECORDS SUMMARY | ~2020-06-02 | XMS | Encounter Summary ---
Demographics + + + | Address | [address] | | | [place] [address] | + + + | Home Phone [...] Providers + +------+ + | Care Director Rehabilitation Program Name | Role | Phone | + +------+ + | Justo Vazquez MD | PCP | | + +------+ + Encounter Details +--------+ + + + + | Date | Type | Department | Care Team | Description | +--------+ + + + + | 10/19/ | Telephone | [facility] | Ilene Bright, | | | 2017 | | Pain Center at | CORRESPONDENCE COORDINATOR [address] | | | | | [facility] | [place], [place] | | | | | [address] | [address] | | | | | [place] for [facility] | [phone] | | | | | and Healing, | | | | | | | | | | | | Floor [place], [place] | | | | | | [address] | | | | | | [phone] | | | +--------+ + + + [...]
--- OUTSIDE RECORDS SUMMARY | ~2020-06-02 | XMS | Encounter Summary ---
Demographics + + + | Address | [address] | | | [place] [address] | + + + | Home Phone [...] Providers + +------+ + | Care It Sales Representative Name | Role | Phone [...] | | | | | Constipation | [address] | [address] | | | | | , | Mook [place] | [place] for | | | | | unspecified | [address] | Health and | | | | | constipation | [place], [place] | Healing, | | | | | type | [address] | [address] | | | | | Abdominal | | [place], [place] | | | | | pain, | | [address] | | | | | unspecified | | Phone: | | | | | location | | [phone] | | | | | Procedures | | Fax: | | | | | CONSULT TO | | [phone] | | | | | GI PROCEDURE | | | | | | | UNIT: | | | | | | | COLONOSCOPY | | | | | | | [place] | | | | | | | [...] | | 2015 | | Center at [facility] [address] | MD Melissa | Vomiting (Bile) | | | | [facility] | | | | | | [facility] and | | | | | | Healing, [address] | | | | | | [place], [place] | | | | | | [address] | | | | | | [phone] | | | +[phone] [...]
--- OUTSIDE RECORDS SUMMARY | ~2020-06-02 | XMS | Encounter Summary ---
Demographics + + + | Address | [address] | | | [place] [address] | + + + | Home Phone [...] Providers + +------+ + | Care Rn Lvn Name | Role | Phone | + +------+ + | Justo Vazquez MD | PCP | | + +------+ + Encounter Details +--------+ + + + + | Date | Type | Department | Care Team | Description | +--------+ + + + + | 09/25/ | Hospital | Radiology/Imaging | Aleta Rebollar MD 1991 | | | 2018 | Encounter | Lab at [facility] [address] | | | | | [facility] for | [place], [place] | | | | | Health and Healing, | [address] | | | | | [address] | [phone] | | | | | Floor [place], [place] | | | | | | [address] | | | | | | [phone] | | | +--------+ + + + [...]
--- OUTSIDE RECORDS SUMMARY | ~2020-06-02 | XMS | Encounter Summary ---
Demographics + + + | Address | [address] | | | [place] [address] | + + + | Home Phone [...] Team Providers + +------+ + | Care Flue Gas Analyst Name | Role | Phone | [...] | | [facility] for | [place], [place] | | | | | Health and Healing, | [address] | | | | | | [phone] | | | | | [place], [place] | | | | | | [address] | | | | | | [phone] | | | +--------+ + + + [...] Note | + + | Service Account, TwentyFeet Res In Interface - 03/08/2018 9:42 AM [...]
--- OUTSIDE RECORDS SUMMARY | ~2020-06-02 | XMS | Encounter Summary ---
Demographics + + + | Address | [address] | | | [place] [address] | + + + | Home Phone [...] Team Providers + +------+ + | Care Traffic Signal Supervisor Maintenance Name | Role | Phone | + [...] | | | regional | [place] [address] | | | | | pain | FAMILY | Mailstop | | | | | syndrome), | MEDICINE P | [id number] | | | | | lower limb | [address] | [place], [place] | | | | | Pain in | [place], | [address] | | | | | joint, lower | [place] [address] | Phone: | | | | | leg | Phone: | [phone] | | | | | Procedures | [phone] | Fax: | | | | | REQUEST TO | Fax: | [phone] | | | | | SURGERY | [phone] | | | | | | MAIL CARRIER AND CLERK | | | +--------+--------+ + + + [...] | | | 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 | FAMILY | Mailstop | | | | | of lower | MEDICINE P | [id number] | | | | | limb | [address] | [place], [place] | | | | | | [place], | [address] | | | | | | [place] [address] | Phone: | | | | | | Phone: | [phone] | | | | | | [phone] | Fax: | | | | | | Fax: | [phone] | | | | | | [phone] | | +--------+--------+ + + + + Encounter Details +--------+---------+ + + + | Date | Type | Department | Care Team | Description | +--------+---------+ + + + | 06/06/ | Office | [facility] Comprehensive | Dale Cantu, | CRPS (complex | | 2011 | Visit | Pain Center at | MD [address] [facility] | regional pain | | | | [facility] | [facility] [id number] | syndrome), lower | | | | [address] | [place], [place] | limb; Pain in joint, | | | | Center for [facility] | [address] | lower leg | | | | and Healing, | [phone] | | | | | | | | | | | Floor [place], [place] | | | | | | [address] | | | | | | [phone] | | | +--------+---------+ + + + [...] Dale Cantu MD - 06/06/2012 11:49 [facility] Pre-Procedure Instructions: The procedure you discussed with your doctor is called: SCS TRIAL LUMBAR [facility]. Please make sure this is scheduled with the Talent Acquisition Operations Manager. Please bring a corrugated fastener driver with you. We may give you medications that make you drowsy or otherw ise unsafe to drive. If you do not have a corrugated fastener driver, we will not be able to do your procedure. DO NOT EAT ANYTHING AFTER MIDNIGHT If your appointment is after 1 PM , you may have a very light, low fat breakfast, such as h snf a piece of dry toast or a [...] PLEASE CONTACT THE COMPREHENSIVE PAIN CENTER AT [phone]) FOR QUESTIONS OR IF YOU NEED TO CANCEL YOUR APPOINTMENT. [facility] Pain Center documented in this [...] not signed. Given information. DALE CANTU MD Game Breeding Farm Manager, [facility] Boiler Erector, Pain Medicine Professor, Anesthesiology & Perioperative Medicine ollHomer manriquez MD - 06/06/2012 11:17 AM PDT [facility] Pain Center Return Visit with [...] and a pain drawing which I reviewed. NEWS COMMENTATOR Brief Pain Inventory: (ten= worst possible pain [...] The Review of Systems obtained by the VICE PRESIDENT GLOBAL ADVERTISING SALES was reviewed. Additional Review of Systems: Bones, [...] up with Dr. Dale Cantu at the [facility] today for left foot CRPS which began [...] therapy Homer Elaine MD Pain Medicine Fellow [facility] [[email or web address]] Pain [place] Evelia Parsons - 11:07 AM PDTCMA History: [...]
--- OUTSIDE RECORDS SUMMARY | ~2020-06-02 | XMS | Encounter Summary ---
Demographics + + + | Address | [address] | | | [place] [address] | + + + | Home Phone [...] Team Providers + +------+ + | Care Sack Cleaner Name | Role | Phone | [...] System [facility] | [address] | | | | | [address] | [place], [place] | | | | | [place] for [facility] | [address] | | | | | and Healing, | [phone] | | | | | | | | | | | Floor [place], [place] | | | | | | [address] | | | | | | [phone] | | | +--------+ + + + [...]
--- OUTSIDE RECORDS SUMMARY | ~2020-06-02 | XMS | Encounter Summary ---
Demographics + + + | Address | [address] | | | [place] [address] | + + + | Home Phone [...] Providers + +------+ + | Care Line Person Name | Role | Phone | + +------+ + | Justo Vazquez MD | PCP | | + +------+ + Encounter Details +--------+ + + + + | Date | Type | Department | Care Team | Description | +--------+ + + + + | 10/03/ | Telephone | [facility] | Ilene Bright, | | | 2017 | | Pain Center at | HYDRAULIC MODELING ENGINEER [address] | | | | | [facility] | [place], [place] | | | | | [address] | [address] | | | | | [place] for [facility] | [phone] | | | | | and Healing, | | | | | | | | | | | | Floor [place], [place] | | | | | | [address] | | | | | | [phone] | | | +--------+ + + + [...]
--- OUTSIDE RECORDS SUMMARY | ~2020-06-02 | XMS | Encounter Summary ---
Demographics + + + | Address | [address] | | | [place] [address] | + + + | Home Phone [...] Team Providers + +------+ + | Care Support Merchandiser Name | Role | Phone | + [...] | Pain Center at | ,PhD [address] [facility] | sig) | | | | [facility] | [address] | | | | | [address] | [place], [place] | | | | | [facility] | [address] | | | | | and Martina, | [phone] | | | | | [facility] | | | | | | Floor [place], [place] | | | | | | [address] | | | | | | [phone] | | | +--------+ + + + [...]
--- OUTSIDE RECORDS SUMMARY | ~2020-06-02 | XMS | Encounter Summary ---
Demographics + + + | Address | [address] | | | [place] [address] | + + + | Home Phone [...] Providers + +------+ + | Care Supervisor Customer Services Name | Role | Phone | [...] [address] | | | | | [facility] | [facility], | | | | | [address] | [place] [address] | | | | | [facility] | [phone] | | | | | and Healing, | | | | | | Building | | | | | | [place], [place] | | | | | | [address] | | | | | | [phone] | | | +--------+ + + + [...]
--- OUTSIDE RECORDS SUMMARY | ~2020-06-02 | XMS | Encounter Summary ---
Demographics + + + | Address | [address] | | | [place] [address] | + + + | Home Phone [...] Team Providers + +------+ + | Care Flag Signalman Name | Role | Phone | + [...] Rd | | | | | | [place], [place] | | | | | | [address] | | | +--------+ + + + [...]
--- OUTSIDE RECORDS SUMMARY | ~2020-06-02 | XMS | Encounter Summary ---
Demographics + + + | Address | [address] | | | [place] [address] | + + + | Home Phone [...] Team Providers + +------+ + | Care Is Technician Name | Role | Phone | [...] + + | 12/05/ | Surgery | [facility] INTRA [facility] | Alex Sanchez, | BILATERAL DORSAL | | 2019 | | Center for [facility] | ,PhD [address] [facility] | ROOT GANGLION SPINAL | | | | and Healing Surgery | [address] | CORD STIMULATOR | | | | Center Admitting | [place], [place] | IMPLANT LUMBAR; | | | | Desk Located on the | [address] | POSTERIOR | | | | 4th floor [address] | [phone] | | | | | [address] [place], | | | | | | [place] [address] | | | +--------+---------+ + + + [...] s/p successful DRG trial lead system with [employer] on 09/25/2018. No changes in H&P, [...] OPERATIVE NOTE Date: December 05, 2018 Location: [facility] [place] | | | Tracie Farah [id number] :1990, presents to clinic | | | for: Dorsal root ganglion stimulator implant PROCEDURE: Dorsal | | | root ganglion stimulator implant PRE-OPERATIVE DIAGNOSIS: Complex | | | regional Pain syndrome type 1 of left lower extremity | | | POST-OPERATIVE DIAGNOSIS: Complex regional Pain syndrome type 1 of | | | left lower extremity ATTENDING PHYSICIAN: Alex Sanchez | | | DRILL RIG OPERATOR HELPER: Arben Valerio MD ANESTHESIA: sedation by IVIS Cole | | | Carmen, supervised by physical sciences professor Ilir Valdes. | | | FINDINGS: Appropriate [...] sedation. Ms. Farah was escorted to the [facility] | | | [place], where she [...] to the | | | [employer] personal banking representative. A test stimulation was performed and [...] recovery. Images were saved, and sent to [employer]. | | | Alex Sanchez (attending) was present for the entire procedure. | | | Arben Valerio MD I was present for the entire procedure | | | (spinal cord stimulator implantation with DRG leads at left L4 and | | | L5) and all bocanegra elements of this visit. I reviewed the | | | documentation of the other HOT BRAIDER providers and concur with | | | Iman's findings. I edited his note. Alex Sanchez, | | | ,PhD Chair Upholsterer Anesthesiology and Pain Management | | | [facility] | [...] + | JOSE ANTONIO MIN | [address] [facility] | [place] [address] | | | OF CARE TESTS | [...]
--- OUTSIDE RECORDS SUMMARY | ~2020-06-02 | XMS | Encounter Summary ---
Demographics + + + | Address | [address] | | | [place] [address] | + + + | Home Phone [...] Team Providers + +------+ + | Care Pasteurizer Helper Name | Role | Phone | + +------+ + | Justo Vazquez MD | PCP | | + +------+ + Encounter Details +--------+ + + + + | Date | Type | Department | Care Team | Description | +--------+ + + + + | 08/03/ | Telephone | [facility] | Alex Sanchez, | | | 2018 | | Pain Center at | ,PhD [address] | | | | | [facility] | [address] | | | | | [address] | [place], [place] | | | | | [place] for [facility] | [address] | | | | | and Healing, | [phone] | | | | | | | | | | | Floor [place], [place] | | | | | | [address] | | | | | | [phone] | | | +--------+ + + + [...]
--- OUTSIDE RECORDS SUMMARY | ~2020-06-02 | XMS | Encounter Summary ---
Demographics + + + | Address | [address] | | | [place] [address] | + + + | Home Phone [...] Team Providers + +------+ + | Care Circus Train Supervisor Name | Role | Phone | + +------+ + | Justo Vazquez MD | PCP | | + +------+ + Encounter Details +--------+ + + + + | Date | Type | Department | Care Team | Description | +--------+ + + + + | 01/31/ | Documentati | Vascular Access at | [place], | | | 2017 | on | [facility] [address] | Maru RN [address] | | | | | [address] | [address] | | | | | [facility] | [place], [place] | | | | | [place], [place] | [address] | | | | | [address] | | | | | | [phone] | | | +--------+ + + + [...]
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
--- OUTSIDE RECORDS SUMMARY | ~2020-06-02 | XMS | Encounter Summary ---
Demographics + + + | Address | [address] | | | [place] [address] | + + + | Home Phone [...] Team Providers + +------+ + | Care Salad Counter Attendant Name | Role | Phone [...] | | 2017 | | Center at [facility] [address] | | pain | | | | [address] [facility] | | | | | | for Health and | | | | | | Healing, Building [address] | | | | | | [place], [place] | | | | | | [address] | | | | | | [phone] | | | +--------+ + + + [...]
--- OUTSIDE RECORDS SUMMARY | ~2020-06-02 | XMS | Encounter Summary ---
Demographics + + + | Address | [address] | | | [place] [address] | + + + | Home Phone [...] Team Providers + +------+ + | Care Char Filter Tank Tender Head Name | Role | Phone | + +------+ + | Justo Vazquez MD | PCP | | + +------+ + Encounter Details +--------+ + + + + | Date | Type | Department | Care Team | Description | +--------+ + + + + | 10/20/ | Telephone | [facility] | Ilene Bright, | | | 2017 | | Pain Center at | BIOLOGY PROFESSOR [address] | | | | | [facility] | [place], [place] | | | | | [address] | [address] | | | | | [place] for [facility] | [phone] | | | | | and Healing, | | | | | | | | | | | | Floor [place], [place] | | | | | | [address] | | | | | | [phone] | | | +--------+ + + + [...]
--- OUTSIDE RECORDS SUMMARY | ~2020-06-02 | XMS | Encounter Summary ---
Demographics + + + | Address | [address] | | | [place] [address] | + + + | Home Phone [...] Team Providers + +------+ + | Care Laborer Steel Handling Name | Role | Phone | + +------+ + | Justo Vazquez MD | PCP | | + +------+ + Encounter Details +--------+ + + + + | Date | Type | Department | Care Team | Description | +--------+ + + + + | 01/12/ | Telephone | [facility] | Kenny Gaspar MD | | | 2016 | | [place] [address] [address] | | | | | | [address] [facility] | | | | | | for Health and | | | | | | [facility], Building 2 | | | | | | [place], [place] | | | | | | [address] | | | | | | [phone] | | | +--------+ + + + [...]
--- OUTSIDE RECORDS SUMMARY | ~2020-06-02 | XMS | Encounter Summary ---
Demographics + + + | Address | [address] | | | [place] [address] | + + + | Home Phone [...] Team Providers + +------+ + | Care Narrative Writer Name | Role | Phone | [...] Medication Question | | 2016 | | [place] [address] [address] | | | | | | [address] [facility] | | | | | | for Health and | | | | | | Healing, [facility] 2 | | | | | | [place], [place] | | | | | | [address] | | | | | | [phone] | | | +--------+ + + + [...]
--- OUTSIDE RECORDS SUMMARY | ~2020-06-02 | XMS | Encounter Summary ---
Demographics + + + | Address | [address] | | | [place] [address] | + + + | Home Phone [...] Providers + +------+ + | Care Technical Aide Name | Role | Phone | + +------+ + | Justo Vazquez MD | PCP | | + +------+ + Encounter Details +--------+ + + + + | Date | Type | Department | Care Team | Description | +--------+ + + + + | 10/09/ | Telephone | [facility] | Alex Sanchez, | | | 2018 | | Pain Center at | ,PhD [address] | | | | | [facility] | [address] | | | | | [address] | [place], [place] | | | | | [place] for [facility] | [address] | | | | | and Healing, | [phone] | | | | | | | | | | | Floor [place], [place] | | | | | | [address] | | | | | | [phone] | | | +--------+ + + + [...]
--- OUTSIDE RECORDS SUMMARY | ~2020-06-02 | XMS | Encounter Summary ---
Demographics + + + | Address | [address] | | | [place] [address] | + + + | Home Phone [...] Team Providers + +------+ + | Care Osteopathy Doctor Name | Role | Phone | + +------+ + | Justo Vazquez MD | PCP | | + +------+ + Encounter Details +--------+ + + + + | Date | Type | Department | Care Team | Description | +--------+ + + + + | 07/30/ | Telephone | [facility] | Alex Sanchez, | | | 2019 | | Pain Center at | ,PhD [address] | | | | | [facility] | [address] | | | | | [address] | [place], [place] | | | | | [place] for [facility] | [address] | | | | | and Healing, | [phone] | | | | | | | | | | | Floor [place], [place] | | | | | | [address] | | | | | | [phone] | | | +--------+ + + + [...]
--- OUTSIDE RECORDS SUMMARY | ~2020-06-02 | XMS | Encounter Summary ---
Demographics + + + | Address | [address] | | | [place] [address] | + + + | Home Phone [...] Team Providers + +------+ + | Care Shorts Sifter Name | Role | Phone | + +------+ + | Justo Vazquez MD | PCP | | + +------+ + Encounter Details +--------+ + + + + | Date | Type | Department | Care Team | Description | +--------+ + + + + | 12/15/ | Documentati | [facility] | Bruna Quinones, | | | 2017 | on | Center at [facility] [address] | [address] | | | | | [address] [place] | [facility] [place] | | | | | for Health and | [address] | | | | | Healing, Building 2 | [phone] | | | | | [place], [place] | | | | | | [address] | | | | | | [phone] | | | +--------+ + + + [...]
--- OUTSIDE RECORDS SUMMARY | ~2020-06-02 | XMS | Encounter Summary ---
Demographics + + + | Address | [address] | | | [place] [address] | + + + | Home Phone | | + + + | Preferred Language | Unknown | + + + | Marital Status | Single | + + + | Protestant Affiliation | 1073 | + + + | Race | Unknown | + + + | Ethnic Group | Unknown | + + + Author + + + | Author | [facility] | | | and [place] | + + + | Organization | [facility] | | | and [...] [place] | | | | | [address] | | + + + + + | Bryant Farah | ECON | Unknown | | + + + + + Care Team Providers + +------+ + | Care Controls Design Engineer Name | Role | Phone | + +------+ + PCP | Unavailable | + +------+ + Encounter Details +--------+ + + + + | Date | Type | Department | Care Team | Description | +--------+ + + + + | 03/20/ | Hospital | [facility] | Ulices Hayes, | 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 T his also failed to [...] stable condition. She [facility] for [facility] medical management. [...] 03/22/131929 Date of Service: 03/22/131920 Status: Signed Ironer Sock: Ava Sue RN (Registered Nurse) Patient tolerated [...] 03/22/131854 Date of Service: 03/22/131854 Status: Signed Ironer Sock: Ava Sue RN (Registered Nurse) Discharge teaching [...] 0657 Date of Service: 03/22/13651 Status: Signed Ironer Sock: Ulices Hayes MD (Physician) [facility] Service: Interventional Pain Management Pre-Operative History [...] Author: JUSTIN Ospina Service: (none) Author Type: Plant Wrapper Filed: 03/21/131035 Date of Service: 03/21/131031 Status: Addendum Ironer Sock: JUSTIN Ospina (Plant Wrapper) Related Notes: Original Note by JUSTIN Ospina (Plant Wrapper) filed at 03/21/13 1 036 Met w/22yo F Pt who lives w/parents in [place], [place]. Pt lives in two story house [...] home. Pt has info for financial co [employer]. lices Brock MD - 03/21/2013 7:27 AM PDT Progress Notes by Ulices Hayes MD at 03/21/13726 Author: Ulices Hayes MD Service: Interventional Pain Management Author Type: Physic deya Filed: 03/21/13 0735 Date of Service: 03/21/13726 Status: Signed Ironer Sock: Ulices Hayes MD (Physician) [facility] Service: Interventional Pain Management Pre-Operative History [...] 03/21/1346 Date of Service: 03/21/13639 Status: Signed Ironer Sock: Darlin Orlando RN (Registered Nurse) Pt had [...] Date of Service: 03/19/13 1034 Status: Addendum Ironer Sock: Ulices Hayes MD (Physician) Related Notes: Original Note by Nataliia Lindsey RN (Registered Nurse) filed at 03/19/13 1 049 [facility] Service: Interventional Pain Management History and [...] since. She has undergone extensive therapy at [facility] at pain clinics in [place] as well and [place], [place]. She has had sympathetic nerv e [...] oriented x4. Head: Normocephalic and atraumatic. Eyes: [place] conjunctiva and sclera clear Mouth: No deformity [...] since. She has undergone extensive therapy at [facility] at pain clinics in [place] as well and [place], [place]. She has had sympathetic nerve blocks [...] 03/22/13838 Date of Service: 03/22/13838 Status: Signed Ironer Sock: Ava Sue RN (Registered Nurse) Problem: Pain [...] Date of Service: 03/22/13 0215 Status: Signed Ironer Sock: Marleen Sheppard RN (Registered Nurse) Problem: Pain [...] 1058 Date of Service: 03/21/131057 Status: Signed Ironer Sock: Ava Sue RN (Registered Nurse) Problem: Pain [...] 03/20/132153 Date of Service: 03/20/131899 Status: Signed Ironer Sock: Justo Romeo RN (Registered Nurse) Problem: Pain [...] Note by Ulices Hayes MD at 03/20/13 1121 Author: Ulices Hayes MD Service: Interventional Pain Management Author Type: Physic deya Filed: 03/20/13 1132 Date of Service: 03/20/131123 Status: Signed Ironer Sock: Ulices Hayes MD (Physician) [facility] Service: Interventional Pain Management Operative Note Pre-operative Diagnosis: #1. Complex regional pain syndrome. #2. Chronic pain syndrome Post-operative Diagnosis: Same Procedure(s): Placement of intrathecal catheter for trial of intrathecal pain medications for pain control. Surgeon: ULICES HAYES MD Elevator Worker(s): none Anesthesia: Moderate sedation and local anesthesia. [...]
--- OUTSIDE RECORDS SUMMARY | ~2020-06-02 | XMS | Encounter Summary ---
Demographics + + + | Address | [address] | | | [place] [address] | + + + | Home Phone [...] Providers + +------+ + | Care Senior Technical Support Analyst Name | Role | Phone | [...] ogy | | Ava Torres, | [address] | | | | | Constipation | [address] | | | | | , | Mook [place] | [place] for | | | | | unspecified | [address] | Health and | | | | | constipation | [facility] [place] | Healing, | | | | | type | [address] | Building 2 | | | | | Procedures | | [place], [place] | | | | | CONSULT TO | | [address] | | | | | GI PROCEDURE | | Phone: | | | | | UNIT: | | [phone] | | | | | ANORECTAL | | Fax: | | | | | MANOMETRY | | [phone] | | | | | PA ANAL | | | | | | | PRESSURE | | | | | | | RECORD | | | +--------+--------+ + + + + Encounter Details +--------+ + + + + | Date | Type | Department | Care Team | Description | +--------+ + + + + | 09/14/ | Hospital | [facility] | Nurse, Gip [address] | | | 2016 | Encounter | [place] | [address] [facility] | | | | | [address] [facility] for | Road [place], [place] | | | | | Health and Healing, | [address] | | | | | [address] 2 | | | | | | [place], [place] | | | | | | [address] | | | | | | [phone] | | | +--------+ + + + [...]
--- OUTSIDE RECORDS SUMMARY | ~2020-06-02 | XMS | Encounter Summary ---
Demographics + + + | Address | [address] | | | [place] [address] | + + + | Home Phone [...] Team Providers + +------+ + | Care Transmitter Supervisor Name | Role | Phone | + +------+ + | Justo Vazquez MD | PCP | | + +------+ + Encounter Details +--------+ + + + + | Date | Type | Department | Care Team | Description | +--------+ + + + + | 09/27/ | Telephone | [facility] | Ilene Bright, | | | 2017 | | Pain Center at | COMMERCIAL LEASE ADMINISTRATOR [address] | | | | | [facility] | [place], [place] | | | | | [address] | [address] | | | | | [place] for [facility] | [phone] | | | | | and Healing, | | | | | | | | | | | | Floor [place], [place] | | | | | | [address] | | | | | | [phone] | | | +--------+ + + + [...]
--- OUTSIDE RECORDS SUMMARY | ~2020-06-02 | XMS | Encounter Summary ---
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 | | | | Therapy | CRPS | Janak Martinez MD | [address] | | | | | (complex | [address] | | | | | regional | [address] | Mailcode: | | | | | pain | Mailstop | [facility] | | | | | syndrome), | [id number] | for Health | | | | | lower limb | [place], [place] | and Healing, | | | | | Gait | [address] | [address] 1 | | | | | disturbance | Phone: | [place], [place] | | | | | Muscle pain | [phone] | [address] | | | | | Procedures | Fax: | Phone: | | | | | PHYSICAL | [phone] | [phone] | | | | | THERAPY | [...] | | | | [address] [place] | [place] [address] | syndrome), lower | | | | [address] | [phone] | limb (Primary Dx) | | | | [facility] | | | | | | and Healing, | | | | | | Building 1, | | | | | | Floor [place], [place] | | | | | | [address] | | | | | | [phone] | | | +--------+---------+ + + + [...] might be different f rom the original. [id number] BRODY FARAH Date of : 1990 Start of care: 02/14/2012 Date of onset: 02/14/2012 Referring/Attending Practitioner: Janak Riojas MD . Primary/Referral Diagnosis/ICD-9: 355.71B CRPS (complex regional pain syndrome), lower limb Insurance: Payor: [facility] Plan: BCBS OUT OF STATE Product Type: PP O Service period from: 02/14/2012 to: 08/12/2012 Number visits used/authorized: 01/23 [facility] PHYSICAL THERAPY PROGRESS NOTE SUBJECTIVE: Age: 21 y.o. Sex: female Chief complaint: No chief complaint on file. Current: pt has been doing her neck exercises. She is not shaking as much. Her foot hurts t bruno. Now she is working at [employer] 2-3 hours per week, and spends a [...] change in their status. Guillermo Sanon MSPT [facility] Outpatient Rehabilitation Services Mailcode: Ch3z [address] [facility], [address] [place] [address] documented in this encounter Plan of Treatment Not on filedocumented as of this encounter Procedures + +--------+ + + + | Procedure Name | Priori | Date/Time | Associated Diagnosis | Comments | | | ty | | | | + +--------+ + + + | [place] THERAPEUTIC | Routin | 05/11/2012 | CRPS [...]
--- OUTSIDE RECORDS SUMMARY | ~2020-06-02 | XMS | Encounter Summary ---
Demographics + + + | Address | [address] | | | [place] [address] | + + + | Home Phone [...] Team Providers + +------+ + | Care Machine Maintenance Supervisor Name | Role | Phone | [...] | 2015 | Encounter | Center at [facility] [address] | MD Melissa | | | | | [address] [facility] | | | | | | for Health and | | | | | | Healing, Building 2 | | | | | | [place], [place] | | | | | | [address] | | | | | | [phone] | | | +--------+ + + + [...]
--- OUTSIDE RECORDS SUMMARY | ~2020-06-02 | XMS | Encounter Summary ---
Demographics + + + | Address | [address] | | | [place] [address] | + + + | Home Phone [...] Team Providers + +------+ + | Care Primer Waterproofing Machine Adjuster Name | Role | Phone | [...] | | 2016 | | Center at [facility] [address] | MD Melissa | | | | | [address] | | | | | | for Health and | | | | | | Healing, [address] | | | | | | [place], [place] | | | | | | [address] | | | | | | [phone] | | | +--------+ + + + [...]
--- OUTSIDE RECORDS SUMMARY | ~2020-06-02 | XMS | Encounter Summary ---
Demographics + + + | Address | [address] | | | [place] [address] | + + + | Home Phone [...] Providers + +------+ + | Care Composition Professor Name | Role | Phone | [...] 08/11/ | Documentati | KEVIN YANEZ at [facility] | Lab, Gi Procedure | Medical Records | | 2015 | on | [facility] [address] | | Review | | | | [address] [facility] for | | | | | | Health and Healing, | | | | | | Building 2 | | | | | | [place], [place] | | | | | | [address] | | | | | | [phone] | | | +--------+ + + + [...]
--- OUTSIDE RECORDS SUMMARY | ~2020-06-02 | XMS | Encounter Summary ---
Demographics + + + | Address | [address] | | | [place] [address] | + + + | Home Phone [...] Team Providers + +------+ + | Care Jigsawyer Name | Role | Phone | + +------+ + | Allegra Gandhi | PCP | | + +------+ + Encounter Details +--------+ + + + + | Date | Type | Department | Care Team | Description | +--------+ + + + + | 02/13/ | Hospital | Nuclear Medicine | | | | 2011 | Encounter | at [facility] [address] | | | | | | [address] | | | | | | [address], | | | | | | [place], | | | | | | [place] [address] | | | | | | [phone] | | | +--------+ + + + [...]
--- OUTSIDE RECORDS SUMMARY | ~2020-06-02 | XMS | Encounter Summary ---
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 | | | | Therapy | CRPS | Janak Martinez MD | [address] | | | | | (complex | [address] | | | | | regional | [address] | Mailcode: | | | | | pain | Mailstop | [facility] | | | | | syndrome), | [id number] | for Health | | | | | lower limb | [place], [place] | and Healing, | | | | | Gait | [address] | [address] 1 | | | | | disturbance | Phone: | [place], [place] | | | | | Muscle pain | [phone] | [address] | | | | | Procedures | Fax: | Phone: | | | | | PHYSICAL | [phone] | [phone] | | | | | THERAPY | [...] regional pain | | | | [facility] | [place] [address] | syndrome), lower | | | | [address] | [phone] | limb (Primary Dx) | | | | Center for Health | | | | | | and Healing, | | | | | | Building 1, 1st | | | | | | Floor [place], [place] | | | | | | [address] | | | | | | [phone] | | | +--------+---------+ + + + [...] might be different f rom the original. [id number] BRODY FARAH Date of : 1990 Start of care: 02/14/2012 Date of onset: 02/14/2012 Referring/Attending Practitioner: Janak Riojas MD . Primary/Referral Diagnosis/ICD-9: 355.71B CRPS (complex regional pain syndrome), lower limb Insurance: Payor: [facility] Plan: BCBS OUT OF STATE Product Type: PP O Service period from: 02/14/2012 to: 08/12/2012 Number visits used/authorized: 05/25 [facility] PHYSICAL THERAPY PROGRESS NOTE SUBJECTIVE: [...] any change in their status. Guillermo Sanon [facility] Outpatient Rehabilitation Services Mailcode: Ch3p [address] [facility] [place], 1st Floor [facility] [address] documented in this encounter Plan of Treatment Not on filedocumented as of this encounter Procedures + +--------+ + + + | Procedure Name | Priori | Date/Time | Associated Diagnosis | Comments | | | ty | | | | + +--------+ + + + | [place] MANUAL THER | Routin | 06/09/2012 | CRPS (complex | | | TECH,1+REGIONS,EA 15 | e | 2:46 PM | regional pain | | | MIN | | PDT | syndrome), lower | | | | | | limb | | + +--------+ + + + | [place] THERAPEUTIC | Routin | 06/09/2012 | CRPS [...]
--- OUTSIDE RECORDS SUMMARY | ~2020-06-02 | XMS | Encounter Summary ---
Demographics + + + | Address | [address] | | | [place] [address] | + + + | Home Phone [...] Providers + +------+ + | Care Top Frame Fitter Name | Role | Phone | + +------+ + | Justo Vazquez MD | PCP | | + +------+ + Encounter Details +--------+ + + + + | Date | Type | Department | Care Team | Description | +--------+ + + + + | 12/07/ | Pharmacy | [facility] | | | | 2019 | Visit | & [facility] Pharmacy | | | | | | [address] | | | | | | Mailcode: [place] | | | | | | [facility] and | | | | | | Healing, Building 1 | | | | | | [place], [place] | | | | | | [address] | | | | | | [phone] | | | +--------+ + + + [...]
--- OUTSIDE RECORDS SUMMARY | ~2020-06-02 | XMS | Encounter Summary ---
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 | | | | Therapy | CRPS | Janak Martinez MD | [address] | | | | | (complex | [address] | | | | | regional | [address] | Mailcode: | | | | | pain | Mailstop | [facility] | | | | | syndrome), | [phone] | for Health | | | | | lower limb | [place], [place] | and Healing, | | | | | Gait | [address] | Building 1 | | | | | disturbance | Phone: | [place], [place] | | | | | Muscle pain | [phone] | [address] | | | | | Procedures | Fax: | Phone: | | | | | PHYSICAL | [phone] | [phone] | | | | | THERAPY | [...] | | | | [address] [place] | [place] [address] | syndrome), lower | | | | [address] | [phone] | limb (Primary Dx) | | | | [facility] | | | | | | and Healing, | | | | | | Building 1, | | | | | | Floor [place], [place] | | | | | | [address] | | | | | | [phone] | | | +--------+---------+ + + + [...] might be different f rom the original. [id number] BRODY FARAH Date of : 1990 Start of care: 02/14/2012 Date of onset: 02/14/2012 Referring/Attending Practitioner: Janak Riojas MD . Primary/Referral Diagnosis/ICD-9: 355.71B CRPS (complex regional pain syndrome), lower limb Insurance: Payor: [facility] Plan: BCBS OUT OF STATE Product Type: PP O Service period from: 02/14/2012 to: 08/12/2012 Number visits used/authorized: 11/25 [facility] PHYSICAL THERAPY INITIAL EVALUATION SUBJECTIVE: Age: 21 [...] no pain relief. Admitted to the inpatient [facility] program for 1 month [...] Diagnostic evaluation: Records from CRPS program at [facility]. Suggest three phase bone sca n. 2. [...] by the psychologists here at the [facility]. 2.2 Physical therapy can reduce pain and improve functional status. Suggest Guillermo Sanon. 3. Medication suggestions: 3.1 Continue titrating up duloxetine. 3.2 As for any patient being managed with chronic opioids, we do recommend that the patient have a signed [facility] Material Risk Notice, agree to whatever [...] and hemr oidectomy. Social History: lives in [place], 22 years old, not working currently, in [...] or concerns about therapy: she lives in [place]. She is r equesting family members or [...] provided with a token and bocanegra for [facility] site. Treatment began: 1345hrs Treatment ended: 1430hrs Manual therapy: 0min Therapeutic exercise: 15 min ASSESSMENT: pt presents with 10-year history of ankle pain post trauma and multiple surgeri es. She thinks she developed CRPS in 2004. She was diagnosed with CRPS and spent a month in the program at [facility] working through aggressive desensitization and activation which prov ided no lasting benefit. She lives in [place], is going to school, and ambulates with [...] She can work with her PT in [place]. CLINICAL PRIORITIES: 1-follow up with Dr Riojas [...] in their status. Guillermo Sanon MSPT [facility] Outpatient Rehabilitation Services Mailcode: Ch3p [address] [facility], 1st [facility] [address] documented in this encounter Plan [...]
--- OUTSIDE RECORDS SUMMARY | ~2020-06-02 | XMS | Encounter Summary ---
Demographics + + + | Address | [address] | | | [place] [address] | + + + | Home Phone [...] Providers + +------+ + | Care Plastic Panel Installer Name | Role | Phone | + +------+ + | Allegra Chaudhary | PCP | | + +------+ + Encounter Details +--------+ + + + + | Date | Type | Department | Care Team | Description | +--------+ + + + + | 07/09/ | Document-Sc | UNKNOWN DEPARTMENT | Unknown . | | | 2014 | anned | [address] | | | | | | [address] | | | | | | [place], [place] | | | | | | [address] | | | +--------+ + + + [...] + + + | RADIOLOGY | | 07/09/2015 | | Results for this | | | | 12:00 AM | | procedure are in the | | | | PDT | | results section. | + +--------+ + + + documented in this encounter Results RADIOLOGY (07/09/2015 12:00 AM PDT) + + + | Narrative | Performed At | + + + | | | + + + documented in this encounter Visit Diagnoses Not on filedocumented in this encounter"
--- OUTSIDE RECORDS SUMMARY | ~2020-06-02 | XMS | Encounter Summary ---
Demographics + + + | Address | [address] | | | [place] [address] | + + + | Home Phone [...] Team Providers + +------+ + | Care Seo Specialist Name | Role | Phone | [...] | Procedures | [place] | [facility] | | | | | CONSULT TO | [address] | [place] | | | | | PAIN | | [address] | | | | | MANAGEMENT | | Phone: | | | | | | | [phone] | | | | | | | Fax: | | | | | | | [phone] | +--------+--------+ + + + + Encounter Details +--------+---------+ + + + | Date | Type | Department | Care Team | Description | +--------+---------+ + + + | 04/23/ | Office | Pain Center at [facility] | Alex Sanchez, | Complex regional | | 2019 | Visit | [address] | ,PhD [address] [facility] | pain syndrome type 1 | | | | Center for [facility] | [address] | of left lower | | | | and Healing, | [place], [place] | extremity (Primary | | | | Building | [address] | Dx); Other chronic | | | | Floor [place], [place] | [phone] | pain ; S/P insertion | | | | [address] | | of spinal cord | | | | [phone] | | stimulator | +--------+---------+ + + [...] the lab on the 1st floor of [facility] to provide a urine sample for [...] notes. Alex Sanchez MD,PhD [facility] signed by Alex Sanchez MD,PhD [...] Aleta Lam MD - 1:00 PM PDT [facility] Return Visit Date: 04/23/2019 [...] leg pain due to the boone that [facility] has in place. She is looking into [...] - DRG Spinal cord stimulator trial with [employer] system (09/25/2018) with 30-40% im provement of typical pain with significant improvement in mobility and function - Left popliteal/sciatic nerve injection AND abdominal scar trigger point injection ( 018) - Spinal cord stimulator trial with [employer] system by Janak Riojas MD (08/02/2012) - Left L3 lumbar sympathetic block by Janak Riojas MD (03/01/2012) Opioid Risk Tool (ORT) 04/23/2019 [facility] Brief Pain Inventory: (ten= worst possible pain [...] Hemroidectomy Trial spinal cord stimulator leads 08/02/2012 [employer] Surgeon: Janak Riojas MD Cholecystectomy Appendectomy Other [...] History Social History Narrative Single. Goes to [employer] with a light load. Has been working at [employer], can' t work on [employer]. Has roommates. Allergies Allergen Reactions Morphine [...] and summary of old medical records (source: [employer]), as summarized in the body of the [...] We performed DRG SCS trial with the [employer] System on 09/25/2018 which provided her with [...] ago. She has not spoken with the [employer] representatives about this. I encouraged her to [...] Key. Aleta Rebollar MD [facility] [address]TH [address] [facility] Mail Code: Ch15p [place] [phone] do cumented in this encounter Plan of [...] MEDICAL CENTER | [address] | [place] [address] | | | SERVICES, CORE | GUILLERMO [...]
--- OUTSIDE RECORDS SUMMARY | ~2020-06-02 | XMS | Encounter Summary ---
Demographics + + + | Address | [address] | | | [place] [address] | + + + | Home Phone [...] Team Providers + +------+ + | Care Theatre Director Name | Role | Phone | [...] Vomiting; | | 2016 | | Center [place] [address] [address] | | Constipation; | | | | [address] | | Abdominal pain | | | | for Health and | | | | | | Healing, Building 2 | | | | | | [place], [place] | | | | | | [address] | | | | | | [phone] | | | +--------+ + + + [...]
--- OUTSIDE RECORDS SUMMARY | ~2020-06-02 | XMS | Encounter Summary ---
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 | | | | Therapy | CRPS | Janak Martinez MD | [address] | | | | | (complex | [address] | | | | | regional | [address] | Mailcode: | | | | | pain | Mailstop | [facility] | | | | | syndrome), | [id number] | for Health | | | | | lower limb | [place], [place] | and Healing, | | | | | Gait | [address] | Building 1 | | | | | disturbance | Phone: | [place], [place] | | | | | Muscle pain | [phone] | [address] | | | | | Procedures | Fax: | Phone: | | | | | PHYSICAL | [phone] | [phone] | | | | | THERAPY | [...] | | | | [place] | [place] [address] | syndrome), lower | | | | [address] | [phone] | limb (Primary Dx) | | | | [facility] | | | | | | and Healing, | | | | | | Building 1, | | | | | | Floor [place], [place] | | | | | | [address] | | | | | | [phone] | | | +--------+---------+ + + + [...] might be different f rom the original. [id number] BRODY FARAH Date of : 1990 Start of care: 02/14/2012 Date of onset: 02/14/2012 Referring/Attending Practitioner: Janak Riojas MD . Primary/Referral Diagnosis/ICD-9: 355.71B CRPS (complex regional pain syndrome), lower limb Insurance: Payor: [facility] [employer] Plan: BCBS OUT OF STATE Product Type: PP O Service period from: 02/14/2012 to: 08/12/2012 Number visits used/authorized: 04/25 [facility] PHYSICAL THERAPY PROGRESS NOTE SUBJECTIVE: [...] change in their status. Guillermo Sanon MSPT [facility] Outpatient Rehabilitation Services Mailcode: Ch3p 0[address] [facility], [address] [place] [address] documented in this encounter Plan of Treatment Not on filedocumented as of this encounter Procedures + +--------+ + + + | Procedure Name | Priori | Date/Time | Associated Diagnosis | Comments | | | ty | | | | + +--------+ + + + | [place] THERAPEUTIC | Routin | 06/13/2012 | CRPS [...]
--- OUTSIDE RECORDS SUMMARY | ~2020-06-02 | XMS | Encounter Summary ---
Demographics + + + | Address | [address] | | | [place] [address] | + + + | Home Phone [...] Providers + +------+ + | Care Hand Kiss Setter Name | Role | Phone | [...] on | Pain Center at | [address] [facility] | evaluation (No | | | | [facility] | [facility] [id number] | evidence of drug | | | | [address] | [place], [place] | abuse) | | | | [facility] | [address] | | | | | and Healing, | [phone] | | | | | [facility] | | | | | | Floor [place], [place] | | | | | | [address] | | | | | | [phone] | | | +--------+ + + + [...]
--- OUTSIDE RECORDS SUMMARY | ~2020-06-02 | XMS | Encounter Summary ---
Demographics + + + | Address | [address] | | | [place] [address] | + + + | Home Phone [...] Team Providers + +------+ + | Care Solderer Production Line Name | Role | Phone | + [...] + + | 03// | Telephone | [facility] Comprehensive | Alex Sanchez, | Medication (clarify | | 2018 | | Pain Center at | ,PhD [address] | sig on Ketamine) | | | | [facility] | [facility] | | | | | [address] | [place], [place] | | | | | [facility] | [address] | | | | | and Healing, | [phone] | | | | | Building | | | | | | Floor [place], [place] | | | | | | [address] | | | | | | [phone] | | | +--------+ + + + [...]
--- OUTSIDE RECORDS SUMMARY | ~2020-06-02 | XMS | Encounter Summary ---
Demographics + + + | Address | [address] | | | [place] [address] | + + + | Home Phone [...] Providers + +------+ + | Care Manager General Name | Role | Phone | + +------+ + | Justo Vazquez MD | PCP | | + +------+ + Encounter Details +--------+ + + + + | Date | Type | Department | Care Team | Description | +--------+ + + + + | 01/11/ | Procedure | Diagnostic Imaging | | | | 2016 | Pass | Services at [facility] | | | | | | [address] | | | | | | Giuliana Roberson | | | | | | [facility] | | | | | | [place], [place] | | | | | | [address] | | | | | | [phone] | | | +--------+ + + + [...]
--- OUTSIDE RECORDS SUMMARY | ~2020-06-02 | XMS | Encounter Summary ---
Demographics + + + | Address | [address] | | | [place] [address] | + + + | Home Phone [...] Team Providers + +------+ + | Care Pants Maker Name | Role | Phone | + +------+ + | Allegra Gandhi | PCP | | + +------+ + Encounter Details +--------+ + + + + | Date | Type | Department | Care Team | Description | +--------+ + + + + | 08/02/ | Results | [facility] | Janak Riojas, | | | 2011 | Only | Pain Center at | MD [address] [facility] | | | | | [facility][Note 3] | [facility] [address]269 | | | | | [address] | [place], [place] | | | | | Center for Health | [address] | | | | | and Martina, | [phone] | | | | | | | | | | | Floor [place], [place] | | | | | | [address] | | | | | | [phone] | | | +--------+ + + + [...]
--- OUTSIDE RECORDS SUMMARY | ~2020-06-02 | XMS | Encounter Summary ---
Demographics + + + | Address | [address] | | | [place] [address] | + + + | Home Phone [...] Team Providers + +------+ + | Care Rapid Outsole Stitcher Name | Role | Phone | [...] | (ortho question) | | | | [facility] | [facility] | | | | | [address] | [place], [place] | | | | | [facility] | [address] | | | | | and Healing, | [phone] | | | | | | | | | | | Floor [place], [place] | | | | | | [address] | | | | | | [phone] | | | +--------+ + + + [...]
--- OUTSIDE RECORDS SUMMARY | ~2020-06-02 | XMS | Encounter Summary ---
Demographics + + + | Address | [address] | | | [place] [address] | + + + | Home Phone [...] Providers + +------+ + | Care Direct Care Provider Name | Role | Phone | + [...] + | 08/08/ | Emergency | [facility] Emergency | Mable Villarreal MD | | | 2015 | | Department [address] | [address] [facility] | | | | | [address] | [address] | | | | | [facility] | [place], [place] | | | | | [place], [place] | [address] | | | | | [address] | [phone] | | | | | [phone] | | | | | | | [...] about "Gastroparesis: Care Instructions", log into your [employer] account at [email or web address]. You can enter M106 in the [employer]" search box. Not on [employer]? Review the [employer] section of your After Visit Summary for directions on ho w to sign up. [phone] [employer] Care instructions adapted under license by [facility] [employer]. This care instruction is for use with your licensed healthcar e professional. If you have questions about a medical condition or this instruction, always ask your healthcare professional. [employer] disclaims any warranty or liabili ty for your use of this information. Content Version: 11.0.276404; Current as of: October 03, 2015 documented [...] | | | LABORATORY | | | [place] | | | SERVICES, | | | [...] | + + + + + | [facility] | [address] | [place] [address] | | | SERVICES, CORE | GUILLERMO [...] DEPT OF | [address] | [place], [place] | | | CARDIOLOGY | [address] | [address] | | + + + + + [...] + + + + + | [facility] LABORATORY | [address] | [place] [address] | | | SERVICES, CORE | PARK [...] [facility] | [address] | [place] [address] | | | SERVICES, LILLIAN | GUILLERMO [...] KEVIN SHAH | [address] | [place] [address] | | | SERVICES, CORE | PARK [...] | + + + + + | [facility] | [address] | [place] [address] | | | [facility] | [address] | | | + [...] organisms may result in clinically misleading | [facility] | | information due to the low numbers and /or mixture of organisms | | | present. Recollection is suggested if clinically indicated. | | + + + + + + + + | Performing | Address | City/State/Zipcode | Phone Number | | Organization | | | | + + + + + | [facility] | [address] | [place] [address] | | | [place] | | | | + + + [...] [facility] | [address] | [place] [address] | | | SERVICES, CORE | PARK [...] + + + + + | [facility] | [address] | [place] [address] | | | SERVICES, CORE | PARK [...] | 152 [phone] U/L | [facility] | | | (LAB) | | | [...] | + + + + + | [facility] | [address] [facility] | [place] [address] | | | SERVICES, CORE | [address]LLERMO [...] | | | LABORATORY | | | [place] | | | SERVICES, | | | [...] | + + + + + | [facility] | [address] | [place] [address] | | | SERVICES, CORE | [address] | | | + + + + + ED INFORMATION EXCHANGE (08/08/2016 12:21 PM PDT) + + + + + + | Component | Value | Ref Range | Performed | Pathologist | | | | | At | Signature | + + + + + + | [facility] | [id number] | | COLLECTIVE | | | | [id number] | | MEDICAL | | | | [...] ------- ---- | | | 08/08/2016 12:21 [facility] and | | | [facility] [place] Emergency [address]. abd pain | | | 08/04/2016 03:50 [facility] | | | [place] Emergency ABD PAIN,VOMITING 06/26/2016 22:44 | | | [facility] [place] | | | Emergency -Acquired absence of other specified parts of | | | | | | digestive | | | tract | | | | | | -Gastroparesis | | | | | | -Unspecified abdominal pain | | | | | | -Gastro-esophageal reflux disease without | | | esophagitis | | | | | | -Other meterman (current) drug therapy 06/22/2016 17:35 | | [facility] [place] [facility] | | Emergency -abd pain, "I have gastroparesis", since , seen | | | | | | at St | | | [facility] yesterday. has been to the er | | | | | | several times | | | | | | -Abdominal Pain | | | | | | -Gastroparesis 06/19/2016 | | | 04:51 [facility] [place] | | | [place] Emergency -Gastroparesis | | | | | | -Unspecified abdominal pain | | | | | | -Other meterman | | | (current) drug therapy | | | | | | -Acquired absence of other specified parts of | | | | | | digestive tract | | | 06/18/2016 07:18 [facility] | | | [place] Emergency [...] Location ------ --------- 1 | | | [facility] 1 | | | [facility] 8 [facility] 10 | | | Total [...] COLLECTIVE MEDICAL | [address] | [place], [place] | [phone] | | TECHNOLOGIES | [address] | [address] | | + + + + + [...]
--- OUTSIDE RECORDS SUMMARY | ~2020-06-02 | XMS | Encounter Summary ---
Demographics + + + | Address | [address] | | | [place] [address] | + + + | Home Phone [...] + +------+ + | Care Clinical Quality Rn Name | Role | Phone | [...] Medical Records | | 2017 | | [place] [facility] | MD Melissa | Review | | | | [address] [facility] | | | | | | for Health and | | | | | | [facility] 2 | | | | | | [place], [place] | | | | | | [address] | | | | | | [phone] | | | +--------+ + + + [...]
--- OUTSIDE RECORDS SUMMARY | ~2020-06-02 | XMS | Encounter Summary ---
Demographics + + + | Address | [address] | | | [place] [address] | + + + | Home Phone [...] Providers + +------+ + | Care Business Office Representative Name | Role | Phone | [...] Rd | | | | | | [place], [place] | | | | | | [address] | | | +--------+ + + + [...]
--- OUTSIDE RECORDS SUMMARY | ~2020-06-02 | XMS | Encounter Summary ---
Demographics + + + | Address | [address] | | | [place] [address] | + + + | Home Phone [...] Team Providers + +------+ + | Care Twist Maker Name | Role | Phone | [...] | | | | | Ave Mailcode: [facility] | [place], [place] | | | | | [facility] | [address] | | | | | Health and Healing, | [phone] | | | | | [place] [address] | | | | | | [place], [place] | | | | | | [address] | | | | | | [phone] | | | +--------+ + + + [...] Discharge Instructions Instructions Darlin Doyle RN - 12/14/2016[place] Care Instructions after Colonoscopy You may resume [...] on weekends and holidays call the Hospital Photo Finisher toll free 1- [phone] Ext. [phone] or and have the GI doctor line person paged. The provider who performed your procedure [...] Farah is a 26 y.o. female MR# [id number] presents today for colonoscopy NPO since midnight [...]
--- OUTSIDE RECORDS SUMMARY | ~2020-06-02 | XMS | Encounter Summary ---
Demographics + + + | Address | [address] | | | [place] [address] | + + + | Home Phone | | + + + | Preferred Language | Unknown | + + + | Marital Status | Single | + + + | Yarsanism Affiliation | 1073 | + + + | Race | Unknown | + + + | Ethnic Group | Unknown | + + + Author + + + | Author | [facility] | | | and [place] | + + + | Organization | [facility] | | | and [place] | [...] [place] | | | | | [address] | | + + + + + | Bryant Farah | ECON | Unknown | | + + + + + Care Team Providers + +------+ + | Care Laborer Vegetable Farm Name | Role | Phone | + +------+ + PCP | Unavailable | + +------+ + Encounter Details +--------+ + + + + | Date | Type | Department | Care Team | Description | +--------+ + + + + | 03/16/ | Hospital | [facility] | Conversion | Back pain | | 2013 | Encounter | CONVERSION [address] | Transaction, | | | | | [address] | Provider Unknown | | | | | [place], [place] | [phone] | | | | | [address] | | | | | | [phone] | | | +--------+ + + + [...]
--- OUTSIDE RECORDS SUMMARY | ~2020-06-02 | XMS | Encounter Summary ---
Demographics + + + | Address | [address] | | | [place] [address] | + + + | Home Phone [...] Team Providers + +------+ + | Care Harvest Supervisor Name | Role | Phone | [...] | | 2017 | | Center at [facility] [address] | | Review | | | | [facility] | | | | | | for Health and | | | | | | [facility] 2 | | | | | | [place], [place] | | | | | | [address] | | | | | | [phone] | | | +--------+ + + + [...]
--- OUTSIDE RECORDS SUMMARY | ~2020-06-02 | XMS | Encounter Summary ---
Demographics + + + | Address | [address] | | | [place] [address] | + + + | Home Phone [...] Team Providers + +------+ + | Care Roving Inspector Name | Role | Phone | [...] | | Pain Center at | ,PhD [address] [facility] | follow-up | | | | [facility] | [address] | | | | | [address] | [place], [place] | | | | | [facility] | [address] | | | | | and Martina, | [phone] | | | | | Building | | | | | | Floor [place], [place] | | | | | | [address] | | | | | | [phone] | | | +--------+ + + + [...]
--- OUTSIDE RECORDS SUMMARY | ~2020-06-02 | XMS | Encounter Summary ---
Demographics + + + | Address | [address] | | | [place] [address] | + + + | Home Phone [...] Team Providers + +------+ + | Care Violent Crimes Detective Name | Role | Phone | + +------+ + | Justo Vazquez MD | PCP | | + +------+ + Encounter Details +--------+ + + + + | Date | Type | Department | Care Team | Description | +--------+ + + + + | 12/05/ | Procedure | [facility] | | | | 2019 | Pass | [facility] | | | | | | and Healing Surgery | | | | | | Center Admitting | | | | | | Desk Located on the | | | | | | 4th floor [address] | | | | | | [address] [place], | | | | | | [place] [address] | | | +--------+ + + + [...]
--- OUTSIDE RECORDS SUMMARY | ~2020-06-02 | XMS | Encounter Summary ---
Demographics + + + | Address | [address] | | | [place] [address] | + + + | Home Phone [...] Team Providers + +------+ + | Care Railways Assistant Name | Role | Phone | [...] | | 2015 | | Center at [facility] [address] | MD Melissa | | | | | [facility] | | | | | | for Health and | | | | | | Healing, Building 2 | | | | | | [place], [place] | | | | | | [address] | | | | | | [phone] | | | +--------+ + + + [...]
--- OUTSIDE RECORDS SUMMARY | ~2020-06-02 | XMS | Encounter Summary ---
Demographics + + + | Address | [address] | | | [place] [address] | + + + | Home Phone [...] Team Providers + +------+ + | Care Workforce Planning Analyst Name | Role | Phone | + +------+ + | Justo Vazquez MD | PCP | | + +------+ + Encounter Details +--------+ + + + + | Date | Type | Department | Care Team | Description | +--------+ + + + + | 03/12/ | Telephone | [facility] | Alex Sanchez, | | | 2019 | | Pain Center at | ,PhD [address] | | | | | [facility] | [address] | | | | | [address] | [place], [place] | | | | | [place] for [facility] | [address] | | | | | and Healing, | [phone] | | | | | | | | | | | Floor [place], [place] | | | | | | [address] | | | | | | [phone] | | | +--------+ + + + [...]
--- OUTSIDE RECORDS SUMMARY | ~2020-06-02 | XMS | Encounter Summary ---
Demographics + + + | Address | [address] | | | [place] [address] | + + + | Home Phone [...] Team Providers + +------+ + | Care Monitoring Coordinator Name | Role | Phone | + +------+ + | Justo Vazquez MD | PCP | | + +------+ + Encounter Details +--------+ + + + + | Date | Type | Department | Care Team | Description | +--------+ + + + + | 04/03/ | Telephone | [facility] | Alex Sanchez, | | | 2019 | | Pain Center at | ,PhD [address] | | | | | [facility] | [address] | | | | | [address] | [place], [place] | | | | | [place] for [facility] | [address] | | | | | and Healing, | [phone] | | | | | | | | | | | Floor [place], [place] | | | | | | [address] | | | | | | [phone] | | | +--------+ + + + [...]
--- OUTSIDE RECORDS SUMMARY | ~2020-06-02 | XMS | Encounter Summary ---
Demographics + + + | Address | [address] | | | [place] [address] | + + + | Home Phone [...] Providers + +------+ + | Care Fish Worm Grower Name | Role | Phone | + +------+ + | Justo Vazquez MD | PCP | | + +------+ + Encounter Details +--------+ + + + + | Date | Type | Department | Care Team | Description | +--------+ + + + + | 06/04/ | Documentati | [facility] Comprehensive | Alex Sanchez, | | | 2019 | on | Pain Center at | ,PhD [address] | | | | | [facility] | [address] | | | | | [address] | [place], [place] | | | | | [facility] | [address] | | | | | and Healing, | [phone] | | | | | | | | | | | Floor [place], [place] | | | | | | [address] | | | | | | [phone] | | | +--------+ + + + [...]
--- OUTSIDE RECORDS SUMMARY | ~2020-06-02 | XMS | Encounter Summary ---
Demographics + + + | Address | [address] | | | [place] [address] | + + + | Home Phone [...] Team Providers + +------+ + | Care Liquid Floor And Wall Applier Name | Role | Phone | + [...] with nausea | [address] | [address] [place], | | | | | Complex | Rd | [place] | | | | | regional | [place], [place] | [address] | | | | | pain | [address] | Phone: | | | | | syndrome | Phone: | [phone] | | | | | type 1 of | [phone] | Fax: | | | | | left lower | Fax: | [phone] | | | | | extremity | [phone] | | | | | | Procedures [...] | | | | | unspecified | [facility] | [address] | | | | | location | Rd | [facility] | | | | | Procedures | [place], [place] | Rd [place], | | | | | CONSULT TO | [address] | [place] | | | | | PAIN | | [address] | | | | | MANAGEMENT | | Phone: | | | | | | | [phone] | | | | | | | Fax: | | | | | | | [phone] | +--------+--------+ + + + + Encounter Details +--------+---------+ + + + | Date | Type | Department | Care Team | Description | +--------+---------+ + + + | 04/19/ | Office | [facility] Ilene | Alex Sanchez, | Intractable cyclical | | 2018 | Visit | Pain Center at | ,PhD [address] | vomiting with | | | | [facility] | [address] | nausea (Primary Dx); | | | | [address] | [place], [place] | Complex regional | | | | [place] for [facility] | [address] | pain syndrome type 1 | | | | and Healing, | [phone] | of left lower | | | | Building | | extremity | | | | Floor [facility] [place] | | | | | | [address] | | | | | | [phone] | | | +--------+---------+ + + + [...] this encounter Patient Instructions Patient Instructions Alex Snachez MD,PhD - 04/19/2018 1:00 PM PDTI will [...] be differe nt from the original. [facility] Return Visit Date: 04/20/2018 [...] not help for the abdominal pain). PAINBRIEF: [facility] Brief Pain Inventory: (ten= worst possible pain [...] Trial spinal cord stimulator leads 08/02/2012 [facility], Surgeon: Janak Riojas MD Cholecystectomy [...] History Social History Narrative Single. Goes to [employer] with a light load. Has been working at [employer], can' t work on crGirls Guide Toches. Has roommates. Allergies Allergen Reactions Morphine Anaphylaxis [...] by physician. Concentration is 150mg/mL. Compounded by [facility] ) KETOROLAC IM Inject into the [...] to her by Christie Madrid MD in [place], [place]. As she chowdhury s since left the practice, Ms. Farah no longer has a prescriber for this medication. At [facility], we typically do [...] Follow up as needed Alex Sanchez MD,PhD [facility] 3 :41 PM PDTSmithCharline MA [...]
--- OUTSIDE RECORDS SUMMARY | ~2020-06-02 | XMS | Encounter Summary ---
Demographics + + + | Address | [address] | | | [place] [address] | + + + | Home Phone [...] Team Providers + +------+ + | Care Acidizer Water Well Name | Role | Phone | + [...] | Pain Center at | ,PhD [address] [facility] [address] | | | | | [facility] | [address] | | | | | [address] | [place], [place] | | | | | [facility] | [address] | | | | | and Martina, | [phone] | | | | | [facility] | | | | | | Floor [place], [place] | | | | | | [address] | | | | | | [phone] | | | +--------+--------+ + + + [...]
--- OUTSIDE RECORDS SUMMARY | ~2020-06-02 | XMS | Encounter Summary ---
Demographics + + + | Address | [address] | | | [place] [address] | + + + | Home Phone [...] Team Providers + +------+ + | Care Superintendent General Name | Role | Phone | + +------+ + | Justo Vazquez MD | PCP | | + +------+ + Encounter Details +--------+ + + + + | Date | Type | Department | Care Team | Description | +--------+ + + + + | 03/12/ | Fractionating Still Operator | [facility] Comprehensive | Alex Sanchez, | Complex regional | | 2019 | | Pain Center at | ,PhD [address] [facility] | pain syndrome type 1 | | | | [facility] | [address] | of left lower | | | | [address] | [place], [place] | extremity; S/P | | | | Center for Health | [address] | insertion of spinal | | | | and Healing, | [phone] | cord stimulator | | | | | | | | | | Floor [place], [place] | | | | | | [address] | | | | | | [phone] | | | +--------+ + + + [...]
--- OUTSIDE RECORDS SUMMARY | ~2020-06-02 | XMS | Encounter Summary ---
Demographics + + + | Address | [address] | | | [place] [address] | + + + | Home Phone [...] Providers + +------+ + | Care Accounting Manager Controller Name | Role | Phone | [...] Rd | | | | | | [place], [place] | | | | | | [address] | | | +--------+ + + + [...]
--- OUTSIDE RECORDS SUMMARY | ~2020-06-02 | XMS | Encounter Summary ---
Demographics + + + | Address | [address] | | | [place] [address] | + + + | Home Phone [...] Providers + +------+ + | Care Drill Hand Name | Role | Phone | [...] Rd | | | | | | [place], [place] | | | | | | [address] | | | +--------+ + + + [...]
--- OUTSIDE RECORDS SUMMARY | ~2020-06-02 | XMS | Encounter Summary ---
Demographics + + + | Address | [address] | | | [place] [address] | + + + | Home Phone [...] Team Providers + +------+ + | Care Balling Machine Operator Name | Role | Phone [...] + + | 09/30/ | Telephone | [facility] Ilene | Ilene Bright, | Phone communication | | 2017 | | Pain Center at | PASTER OPERATOR [address] | | | | | [facility] | [place], [place] | | | | | [address] | [address] | | | | | [facility] | [phone] | | | | | and Healing, | | | | | | Building | | | | | | Floor [facility] [place] | | | | | | [address] | | | | | | [phone] | | | +--------+ + + + [...]
--- OUTSIDE RECORDS SUMMARY | ~2020-06-02 | XMS | Encounter Summary ---
Demographics + + + | Address | [address] | | | [place] [address] | + + + | Home Phone [...] Team Providers + +------+ + | Care Movie Producer Name | Role | Phone | + [...] | | | Spasticity | Ave | [facility] [place] | | | | | Procedures | [facility] [place] | [address] | | | | | CONSULT TO | [address] | Phone: | | | | | PAIN | Phone: | [phone] | | | | | MANAGEMENT | [phone] | Fax: | | | | | | Fax: | [phone] | | | | | | [phone] | | +--------+---------+ + + + + [...] | | MD Celia | MD Brendan [address] | | | | | Fibromyalgia | [address] | [address] | | | | | Spasticity | Ave | [address] | | | | | Epigastric | [place], [place] | Rd [place], | | | | | pain | [address] | [place] | | | | | Procedures | Phone: | [address] | | | | | REQUEST TO | [phone] | Phone: | | | | | SURGERY | Fax: | [phone] | | | | | COUNTRY PRINTER | [phone] | Fax: | | | | | IN INJECT | | [phone] | | | | | TRIGGER | | | | | | | POINT, 1 [place] | | | | | | | 2 IN INJECT | | | | | | [...] Pain Medicine | Diagnoses | [place], | Driller Machine Chh1 | | | | / Pain | Abdominal | MD Kenny | [address] | | | | Management | pain, | [address] | [address] Center | | | | | unspecified | [facility] | for Health | | | | | location | Rd | and Healing, | | | | | Procedures | [place], [place] | Building | | | | | CONSULT TO | [address] | 1,15th Floor | | | | | PAIN | | [place], [place] | | | | | MANAGEMENT | | [address] | | | | | | | Phone: | | | | | | | [phone] | | | | | | | Fax: | | | | | | | [phone] | +--------+--------+ + + + + Encounter Details +--------+---------+ + + + | Date | Type | Department | Care Team | Description | +--------+---------+ + + + | 10/11/ | Office | [facility] Comprehensive | Vern Robertson, | Epigastric pain | | 2017 | Visit | Pain Center at | COLLECTIONS ATTORNEY [address] | (Primary Dx); | | | | [facility] | [place], [place] | Spasticity | | | | [address] | [address] | | | | | [place] for Health | [phone] | | | | | and Healing, | | | | | | Building | | | | | | Floor [place], [place] | | | | | | [address] | | | | | | [phone] | | | +--------+---------+ + + + [...] true warrior! * Please sign up for [employer]. This is the best way to communicate with me. It will save you time in the long run. The procedure you discussed with your doctor is called: Trigger point injection of abdomina l scar. Please make sure this is scheduled with the Internet Salesperson. PRE-PROCEDURE INSTRUCTIONS 1. Please bring a service car driver with you as we may give you medications that impair your ability to drive. This is necessary even if you do not receive sedation. You may take a taxi or ri [place] [employer] if you are accompanied by a responsible [...] or blood thinning medications (other than aspirin), [facility] doctor who is doing your procedure will communicate with the provider who is prescribing y our anticoagulant therapy. If you do not have clear instructions on what to do with your an ticoagulant by 2 weeks before your procedure, please contact [facility] to cl arify your instructions. The phone number for questions or concerns is [phone]. * Consider Lidoderm topical or compound prescription [...] muscle hyper tonicity. * Consider increasing your Austin 3 fats. Austin-3 fats are precursors to mediators of inflammation [...] oil if approved by your PCP or pmo manager. * Eliminate High Fructose Gower Syrup and Sugar from your diet as [...] review treatment plan. * Follow up with [facility] as needed. It [...] appoi ntment at the [facility] [place] was 07/11/17 with TERESA Clark, for a [...] She reports multiple diagnostic tests conducted at [facility] in [place], [place] including barium swallow and Hydrogen breath [...] Torodol shots: only form of symptom relief. TOOLS ADMINISTRATOR Brief Pain Inventory: (ten= worst possible pain [...] History Social History Narrative Single. Goes to [employer] with a light load. Has been working at [employer], can' t work on crMANGO BCNches. Has roommates. Allergies Allergen Reactions Morphine Anaphylaxis [...] by physician. Concentration is 150mg/mL. Compounded by [facility] ) LAMOTRIGINE 200 MG TABLET Take [...] Take as directed by [facility] Digestive [facility]- 2 gallon bowel prep POLYETHYLENE GLYCOL [...] reviewed. - Review old medical records (from [facility]). Pertinent findings include: abdominal [...] review treatment plan. * Follow up with [facility] as needed. IGuillermo am scribing for Vern Robertson NP on 10/11/2017 I have reviewed and verified the above scribed note of my visit with this patient as record ed by Guillermo Hope. Vern Robertson NP [facility] 15TH FLOOR [address] Mail Code: Ch15p [place] [address] documented in this e ncounter Plan of Treatment Not on filedocumented as of this encounter Visit Diagnoses + + | Diagnosis | + + | Epigastric pain - Primary Abdominal pain, epigastric | + + | Spasticity Abnormal involuntary movements | + + documented in this encounter
--- OUTSIDE RECORDS SUMMARY | ~2020-06-02 | XMS | Clinical Summary ---
Demographics + + + | Address | [address] | | | [place] [address] | + + + | Home Phone [...] | Author | [facility] | + + + | Organization | [facility] | + + + | Address | Unknown | + + + | Phone | Unavailable | + + + Support + + +---------+ + | Name | Relationship | Address | Phone | + + +---------+ + | Patricia Colin | ECON | Unknown | | + + +---------+ + Care Team Providers + +------+ + | Care Gas Welder Apprentice Name | Role | Phone | + +------+ + | Justo Vazquez MD | PCP | | + +------+ + Source Comments KEVIN is fully live on both [facility] Amb[facility] and [facility] InPatient.[facility] Allergies + + + + + [...] Noted Date | + + + | [facility] CLINICAL PROTOCOL PATIENT (PETER) - Implanted Spinal Cord | 12/14/2018 | | Stimulator | | + + + + + | Overview: Patient has an implanted [employer] spinal | | cord stimulator. Model#: [id number]. Contact [phone] for | | technical assistance.Contraindications:Sources of strong [...] | Right: | BARD | | | [id number] | | Port-10/05/2016Implanted: | | Chest | | | | 0 / | | 10/05/2016 by Obdulio Simpson, | | | | | | /VIKY | | (Quantity not on file) | | | | | | 204 | + +------+--------+ +--------+--------+--------+ + + | Description:Not Power | | Injectable, Progress record | | faxed from [facility] | | Hospital in [place], [place], | | [facility] RN | + + + +---+---+ +---+--------+--------+ | Slimtip DrgImplanted: Qty: 1 | | | [facility]ESSICA | | 01/06/ | [id number] | | on 12/05/2018 by Daniel, | | | MEDICAL SC | | 2020 | 0-50A | | Alex Alba MD,PhD at [facility] | | | | | | /[id number] | | INPATIENT REV LOC | | | | | | 371 / | + +---+---+ +---+--------+--------+ + + | Description:Level 4 | + + + +---+---+ +---+---+--------+ | Slimtip DrgImplanted: Qty: 1 | | | [facility] JESSICA | | | [id number] | | on 12/05/2018 by Daniel, | | | MEDICAL SC | | | 0-50A | | Alex Alba MD,PhD at [facility] | | | | | | /[id number] | | INPATIENT REV LOC | | [...] / | | Alex Alba MD,PhD at [facility] | | | | | | [...] | | | | | | | [address] | | + +--------+ +--------+ + +--------+ | [employer] H[employer]ORY PROFESSOR MEDICAID | [employer] HISTORY PROFESSOR | xxxxxxxx | 11/14/19 | | | [...] | 1990 | [phone] | [place] [address] | | | evita | | | [...]
--- OUTSIDE RECORDS SUMMARY | ~2020-06-02 | XMS | Encounter Summary ---
Demographics + + + | Address | [address] | | | [place] [address] | + + + | Home Phone [...] Providers + +------+ + | Care Equity Director Name | Role | Phone | + +------+ + | Justo Vazquez MD | PCP | | + +------+ + Encounter Details +--------+ + + + + | Date | Type | Department | Care Team | Description | +--------+ + + + + | 04/23/ | Pharmacy | [facility] | | | | 2019 | Visit | [facility] | | | | | | [address] | | | | | | Mailcode: [place] | | | | | | [facility] and | | | | | | Healing, Building [address] | | | | | | [place], [place] | | | | | | [address] | | | | | | [phone] | | | +--------+ + + + [...]
--- OUTSIDE RECORDS SUMMARY | ~2020-06-02 | XMS | Encounter Summary ---
Demographics + + + | Address | [address] | | | [place] [address] | + + + | Home Phone [...] Providers + +------+ + | Care Hand Mounter Name | Role | Phone | + +------+ + | Allegra Gandhi | PCP | | + +------+ + Encounter Details +--------+ + + + + | Date | Type | Department | Care Team | Description | +--------+ + + + + | 03/01/ | Results | [facility] | Janak Riojas, | | | 2011 | Only | Pain Center at | MD [address] [facility] | | | | | [facility] | [facility] [id number] | | | | | [address] | [place], [place] | | | | | Center for Health | [address] | | | | | and Martina, | [phone] | | | | | | | | | | | Floor [place], [place] | | | | | | [address] | | | | | | [phone] | | | +--------+ + + + [...]
--- OUTSIDE RECORDS SUMMARY | ~2020-06-02 | XMS | Encounter Summary ---
Demographics + + + | Address | [address] | | | [place] [address] | + + + | Home Phone [...] Providers + +------+ + | Care Gas Engine Operator Compressors Name | Role | Phone | + [...] + + | 01/11/ | Telephone | [facility] | Alex Sanchez, | Referral To | | 2018 | | Pain Center at | ,PhD [address] | Orthopedics (discuss | | | | [facility] | [address] | ortho appointment) | | | | [address] | [place], [place] | | | | | [facility] | [address] | | | | | and Healing, | [phone] | | | | | Building | | | | | | Floor [facility] [place] | | | | | | [address] | | | | | | [phone] | | | +--------+ + + + [...]
--- OUTSIDE RECORDS SUMMARY | ~2020-06-02 | XMS | Encounter Summary ---
Demographics + + + | Address | [address] | | | [place] [address] | + + + | Home Phone [...] Providers + +------+ + | Care Retail Attendant Name | Role | Phone | [...] | | syndrome | [address] | [facility] | | | | | type 1 of | Rd | Rd [place], | | | | | left lower | [place], [place] | [place] | | | | | extremity | [address] | [address] | | | | | Procedures | Phone: | Phone: | | | | | REQUEST TO | [phone] | [phone] | | | | | SURGERY | Fax: | Fax: | | | | | AIRCRAFT [employer] | [phone] | [phone] | +--------+---------+ + + + + Encounter Details +--------+ + + + + | Date | Type | Department | Care Team | Description | +--------+ + + + + | 12/ | Procedure | [facility] | Alex Sanchez, | Foot pain; Knee | | 2018 | | [address] | ,PhD [address] | pain; Procedure | | | | [facility] | [facility] | | | | | and Healing, | [place], [place] | | | | | | [address] | | | | | Floor [place], [place] | [phone] | | | | | [address] | | | | | | [phone] | | | +--------+ + + + [...] your procedure tonight, Please call the Hospital Case Management Manager, and ask for the Pain Management Consu [...] symptoms, dressing, SCS function, or chills. During DISABILITY COORDINATOR open ho urs, call the [facility] ([phone]), after hours call the centrex radio operator at [facility] ([phone]) and ask for the Adult Pain Service data acquisition technician. Identify yourself as a [facility] [...] to the pat ient. Aleta Rebollar MD [facility] Fogjpqydygpemp signed by Sonia Key at 09/25/2018 3:07 PM PST documented in this encounter Progress Notes Alex Sanchez MD,PhD - 09/25/2018 1:00 PM PSTI was present for the entire procedure ( DRG SCS trial) and all bocanegra elements of this visit. I reviewed the documentation of the othe r [facility] providers and concur with Dr. Rebollar's findings. I edited his note. Alex Sanchez MD,PhD Steam Trap Man Anesthesiology and Pain Management [facility] [place] onacZain bonner RN - 09/25/2018 1:00 PM [...] physician. Concentration is 150mg/mL. Compounded by [facility] ) KETOROLAC IM Inject into the muscle [...] directed by [facility] Digestive [facility]- 2 gallon bowel prep POLYETHYLENE [...] PRE-SEDATION: Date: September 25, 2018 Tracie Farah [id number] 1990 ALLERGIES: Morphine Previous reaction to Sedation/Analgesia: [...] NOTES: Date: September 25, 2018 Tracie Donaldson [facility] [id number] 1990 ALLERGIES: Morphine Previous reaction to Sedation/Analgesia: [...] VS: See Sedation Flow Sheet. Tracie Donaldson [facility] [id number] 1990, presents to clinic for: Procedure: bilateral [...] OPERATIVE NOTE Date: September 25, 2018 Location: [facility] Procedure Room Tracie Donaldson [facility] [id number] :1990, presents to clinic for: PROCEDURE: DRG Spinal Cord Stimuation Trial with [employer] system LEVEL/LATERALITY: left L4, L5 PRE-OPERATIVE DIAGNOSIS: G90.522 Complex regional pain syndrome type 1 of left lower extremity POST-OPERATIVE DIAGNOSIS: G90.522 Complex regional pain syndrome type 1 of left lower extremity ATTENDING PHYSICIAN: Alex Sanchez MD,PhD NURSES ASSISTANT: Fellow Aleta Rebollar ANESTHESIA: Sedation delivered by [...] sedation. Ms. Farah was escorted to the [facility] Procedure R oom, where she was [...] patient. Ms. Farah was transported to the [facility] post-procedure recovery area where she made an uneventful recovery. Programming was performed in the PACU with aid of the device financial foundations representative and Ms. Susie faust was sent home with a few programs . This was a unilateral procedure. Alex Sanchez MD,PhD was present for the entire procedure. Images were saved, and sent to Handle. Ms. Farah was transported to the [facility] post-procedure recovery area. She had an uneventful recovery. Before the procedure, Ms. Farah's pain was 7/10. After the procedure Ms. Farah's pain was 7/10. I, Sonia Key, am functioning as a scribe for Aleta Rebollar MD. I have reviewed and verified the above scribed note of my visit with this patient as record ed by Sonia Key. Aleta Rebollar MD [facility] 15TH FLOOR [address] [facility] Mail Code: [address] [address] documented in t his encounter Plan of Treatment Not on filedocumented as of this encounter Procedures + +--------+ + + + | Procedure Name | Priori | Date/Time | Associated Diagnosis | Comments | | | ty | | | | + +--------+ + + + | [place] MOD SEDATION | Routin | 09/25/2018 | Complex regional | | | >=5YRS SAME MD/QUAL | e | 7:31 PM | pain syndrome type 1 | | | PROV; INIT 15 MIN | | PST | of left lower | | | | | | extremity | | + +--------+ + + + | [place] PERCUT IMPLNT | Routin | 09/25/2018 | [...]
--- OUTSIDE RECORDS SUMMARY | ~2020-06-02 | XMS | Encounter Summary ---
Demographics + + + | Address | [address] | | | [place] [address] | + + + | Home Phone [...] Providers + +------+ + | Care Court Manager Name | Role | Phone | + +------+ + | Justo Vazquez MD | PCP | | + +------+ + Encounter Details +--------+ + + + + | Date | Type | Department | Care Team | Description | +--------+ + + + + | 12/02/ | Document-Sc | Health Information | Unknown . | | | 2017 | anned | Services [id number] | | | | | | [address] | | | | | | Mailcode: [id number] | | | | | | [facility] | | | | | | [place], [place] | | | | | | [address] | | | | | | [phone] | | | +--------+ + + + [...]
--- OUTSIDE RECORDS SUMMARY | ~2020-06-02 | XMS | Encounter Summary ---
Demographics + + + | Address | [address] | | | [place] [address] | + + + | Home Phone [...] Providers + +------+ + | Care Assembly Inspector Helper Name | Role | Phone | [...] | | | | | extremity | [address] | [address] | | | | | Muscle pain | Phone: | Phone: | | | | | Procedures | [phone] | [phone] | | | | | REQUEST TO | Fax: | Fax: | | | | | SURGERY | [phone] | [phone] | | | | | ENGLISH ADJUNCT FACULTY | | | | | | | MN INJ,ANES | | | | | | | AGENT,SCIATI | | | | | | | C | | | | | | | NERVE,SINGLE | | | | | | | MN INJECT | | | | | | | NERV | | | | | | | BLCK,OTHR | | | | | | | PERIPH NERV | | | | | | | MN SONO | | | | | | | GUIDE FOR | | | | | | | NEEDLE | | | | | | | PLACEMENT | | | | | | | MN MOD | | | | | | | SEDATION | | | | | | | >=5YRS SAME | | | | | | | MD/QUAL | | | | | | | PROV; INIT | | | | | | | 15 MIN MN | | | | | | [...] 12/27/ | Procedure | Pain Center at [facility] | Alex Sanchez, | Pain in left leg; | | 2017 | | [address] | ,PhD [address] | Procedure | | | | Center for Health | [facility] | | | | | and Healing, | [place], [place] | | | | | [facility] | [address] | | | | | [place], [place] | [phone] | | | | | [address] | | | | | | [phone] | | | +--------+ + + + [...] 3:00 PM PSTFormatting of this note mi nyaelit be different from the [facility] Patient Instructions - Post Interventional Procedure Date: 12/27/2017 Name: Tracie Farah Date of : 1990 Procedure Performed: trigger point injection and popliteal/sciatic block. Procedure Provider: Alex Sanchez MD,PhD If you have any problems you believe are associated with your procedure tonight, Please call the Hospital Lead Pharmacy Technician, and ask for the Pain Management Consu ltant. If you have problems or questions between 9:00 am and 4:00 pm, Please call the [facility] Pain Center Nurse Triage Line, . If [...] paper. Please fax the pain diary to [phone] or attach a scanned image of it to a 123people message to your doct or.. The area [...] to the larry ent. David Linares MD [facility] documented in this encounter Progress Notes Alex Sanchez MD,PhD - 12/27/2017 3:00 PM PSTI was present for the entire procedure ( popliteal nerve block and abdominal scar neuroma injection) and all bocanegra elements of this vis it. I reviewed the documentation of the other ASSOCIATE PROGRAM MANAGER providers and concur with Dr. Linares's findings. I edited his note. Alex Sanchez MD,PhD Clerical Warehouse Worker Anesthesiology and Pain Management [facility] David Pennington MD - 12/27/2017 3:00 PM PSTPROVIDER OPERATIVE NOTE Date: December 27, 2017 Location: [facility] Procedure Room Tracie Farah [id number] :1990, presents to clinic for: PROCEDURE: Popliteal/sciatic [...] scar neuroma ATTENDING PHYSICIAN: Alex Sanchez MD,PhD AMPOULE FILLER: Fellow David Linares MD ANESTHESIA: sedation [...] sedation. Ms. Farah was escorted to the [facility] Procedure R oom, where she was [...] procedure. Images were saved, and sent to [employer]. Ms. Farah was transported to the [facility] post-procedure recovery area. She [...] by physician. Concentration is 150mg/mL. Compounded by [facility] ) LEVONORGESTREL 20 MCG/24 HR (5 [...] Take as directed by [facility]- 2 gallon bowel prep POLYETHYLENE GLYCOL [...] PRE-SEDATION: Date: December 27, 2017 Tracie Farah [id number] 1990 ALLERGIES: Morphine Previous reaction to Sedation/Analgesia: [...] ride here with you? yes Who?: mother RN/FELLED SEAM OPERATOR CHAINSTITCH History: 1. Has your pain changed from [...] Date: December 27, 2017 Tracie Ocampojulita Farah [id number] 1990 See RN /FELLED SEAM OPERATOR CHAINSTITCH Pre-Sedation Note. IV ACCESS:Right subc PAC. BASELINE VS: See Sedation Flow Sheet. Tracie Donaldson Sofi [id number] 1990, presents to clinic for: Procedure: left [...] started. 1530 Midazolam 2mg IV given 1530 [id number] mcg IV given 1534 Midazolam 1mg IV given 1546 Midazolam 1mg IV given 1546 Onsptibg779 mcg IV given 1548 Fentanyl 100 mcg IV given bupivacaine 0.5%, 9mL given, 21mL wasted Kenalog 40mg/mL 1mL, 0 mL wasted 1555 abdominal scar trigger point completed. 1558 Fentanyl 50 mcg IV given 1601 Fentanyl 50 mcg IV given Chaplin placed for Popliteal Nerve Block.. Placement verified [...] + +--------+ + + + | MN INJECTION(S), | Routin | 12/27/2017 | Complex regional | | | ANESTHETIC AGENT(S) | e | 4:32 PM | pain syndrome type 1 | | | AND/OR STEROID; | | PST | of left lower | | | OTHER PERIPHERAL | | | extremity | | | NERVE OR BRANCH | | | | | + +--------+ + + + | MN ROPIVACAINE HCL | Routin | 12/27/2017 | Complex regional | | | INJ 0.5% | e | 4:32 PM | pain syndrome type 1 | | | | | PST | of left lower | | | | | | extremity | | + +--------+ + + + | MN MOD SEDATION | Routin | 12/27/2017 | Complex regional | | | >=5YRS SAME MD/QUAL | e | 4:32 PM | pain syndrome type 1 | | | PROV; INIT 15 MIN | | PST | of left lower | | | | | | extremity | | + +--------+ + + + documented in this encounter Results ASSOCIATE PROGRAM MANAGER MISC PROCEDURE (12/27/2017 3:28 PM PST) + [...]
--- OUTSIDE RECORDS SUMMARY | ~2020-06-02 | XMS | Encounter Summary ---
Demographics + + + | Address | [address] | | | [place] [address] [...] Providers + +------+ + | Care Medical Device Name | Role | Phone | + [...] | | | | [address] | | | | | | for Health and | | | | | | [facility] [address] | | | | | | [place], [place] | | | | | | [address] | | | | | | [phone] | | | +--------+ + + + [...]
--- OUTSIDE RECORDS SUMMARY | ~2020-06-02 | XMS | Encounter Summary ---
Demographics + + + | Address | [address] | | | [place] [address] [...] Providers + +------+ + | Care Sales Operations Analyst Name | Role | Phone | [...] | | | sympathetic | [place] | [address]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 | FAMILY | [address] | | | | | of lower | MEDICINE P | [id number] | | | | | limb | [address] | [place], [place] | | | | | | [place], | [address] | | | | | | [place] [address] | Phone: | | | | | | Phone: | [phone] | | | | | | [phone] | Fax: | | | | | | Fax: | [phone] | | | | | | [phone] | | +--------+--------+ + + + + [...] | regional pain | | | | [facility] | [facility] [id number] | syndrome), lower | | | | [address] | [place], [place] | limb (Primary Dx) | | | | [place] for Health | [address] | | | | | and Healing, | [phone] | | | | | Building | | | | | | Floor [place], [place] | | | | | | [address] | | | | | | [phone] | | | +--------+---------+ + + + [...] evaluated the patient with Fellow Nhan Guo [facility], who conducted the initial history. I reviewed the history in det ail and edited his note. I was present for the examination and formulation portions of the encounter. I agree with the findings and the plan of care as documented in our notes. DALE CANTU MD Wood Tool Maker, [facility] Quarter Backer, Pain Medicine Professor, Anesthesiology & Perioperative Medicine [...] physical activity and social withdrawal enok Gutierrez, [facility] - 08/04/2012 7:25 AM PDTFormatting of this note might be different from the origi nal. [facility] Pain Center Return Visit with [...] treated at the [facility] for lower limb pain with the [...] a pain drawing which I reviewed. [facility] Brief Pain Inventory: (ten= worst possible [...] The Review of Systems obtained by the [facility] was reviewed. Additional Review of [...] SCS with multiple programs with both [facility] programs, however it appears that it does [...] bath today, OK to shower. HENOK GUO [facility] documented in this en counter Plan of Treatment Not on filedocumented as of this encounter Visit Diagnoses + + | Diagnosis | + + | CRPS (complex regional pain syndrome), lower limb - Primary Causalgia of lower limb | + + documented in this encounter
--- OUTSIDE RECORDS SUMMARY | ~2020-06-02 | XMS | Encounter Summary ---
Demographics + + + | Address | [address] | | | [place] [address] | + + + | Home Phone [...] Team Providers + +------+ + | Care Nib Finisher Name | Role | Phone | [...] [address] | | | | | [address] | [place], [place] | | | | | [place] for [facility] | [address] | | | | | and Healing, | [phone] | | | | | | | | | | | Floor [place], [place] | | | | | | [address] | | | | | | [phone] | | | +--------+ + + + [...]
--- OUTSIDE RECORDS SUMMARY | ~2020-06-02 | XMS | Encounter Summary ---
Demographics + + + | Address | [address] | | | [place] [address] | + + + | Home Phone [...] Team Providers + +------+ + | Care Soldering Machine Tender Name | Role | Phone [...] 2017 | | Center at [facility] [address] | | pain | | | | [address] [facility] | | | | | | for Health and | | | | | | Healing, Building [address] | | | | | | [place], [place] | | | | | | [address] | | | | | | [phone] | | | +--------+ + + + [...]
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
--- OUTSIDE RECORDS SUMMARY | ~2020-06-02 | XMS | Encounter Summary ---
Demographics + + + | Address | [address] | | | [place] [address] | + + + | Home Phone [...] Team Providers + +------+ + | Care Compensation Consultant Name | Role | Phone | [...] | | | sympathetic | [place] | [address]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 | FAMILY | [address] | | | | | of lower | MEDICINE P | [id number] | | | | | limb | [address] | [place], [place] | | | | | | [place], | [address] | | | | | | [place] [address] | Phone: | | | | | | Phone: | [phone] | | | | | | [phone] | Fax: | | | | | | Fax: | [phone] | | | | | | [phone] | | +--------+--------+ + + + + Encounter Details +--------+---------+ + + + | Date | Type | Department | Care Team | Description | +--------+---------+ + + + | 08/04/ | Office | [facility] | Dale Cantu, | CRPS (complex | | 2011 | Visit | Pain Center at | MD [address] [facility] | regional pain | | | | [facility] | [facility] [id number] | syndrome), lower | | | | [address] | [place], [place] | limb (Primary Dx) | | | | [place] for Health | [address] | | | | | and Healing, | [phone] | | | | | Building | | | | | | Floor [place], [place] | | | | | | [address] | | | | | | [phone] | | | +--------+---------+ + + + [...] evaluated the patient with Fellow Nhan Guo [facility], who conducted the initial history. I reviewed the history in det ail and edited his note. I was present for the examination and formulation portions of the encounter. I agree with the findings and the plan of care as documented in our notes. DALE CANTU MD Landscape Architect, [facility] Technology Applications Teacher, Pain Medicine Professor, Anesthesiology & Perioperative [...] physical activity and social withdrawal enok Gutierrez, [facility] - 08/04/2012 7:25 AM PDTFormatting of this note might be different from the origi nal. [facility] Pain Center Return Visit with [...] has been treated at the [facility] for lower limb pain with the [...] a pain drawing which I reviewed. [facility] Brief Pain Inventory: (ten= worst possible [...] multiple programs with both [facility] programs, however it appears that it [...] bath today, OK to shower. HENOK GUO [facility] documented in this en counter Plan of Treatment Not on filedocumented as of this encounter Visit Diagnoses + + | Diagnosis | + + | CRPS (complex regional pain syndrome), lower limb - Primary Causalgia of lower limb | + + documented in this encounter
--- OUTSIDE RECORDS SUMMARY | ~2020-06-02 | XMS | Encounter Summary ---
Demographics + + + | Address | [address] | | | [place] [address] | + + + | Home Phone [...] Team Providers + +------+ + | Care Asphalt Paving Superintendent Name | Role | Phone | [...] | Diagnoses | Beulah | Edu Pt Cellars Supervisor | | | | Therapy | CRPS | Janak Martinez MD | [address] | | | | | (complex | [address] | | | | | regional | [address] | Mailcode: | | | | | pain | [address]stop | [facility] | | | | | syndrome), | [id number] | for Health | | | | | lower limb | [place], [place] | and Healing, | | | | | Gait | [address] | Building 1 | | | | | disturbance | Phone: | [place], [place] | | | | | Muscle pain | [phone] | [address] | | | | | Procedures | Fax: | Phone: | | | | | PHYSICAL | [phone] | [phone] | | | | | THERAPY | [...] | | | | [address] | [place] [address] | syndrome), lower | | | | [address] | [phone] | limb (Primary Dx) | | | | [facility] | | | | | | and Healing, | | | | | | Building 1, | | | | | | Floor [place], [place] | | | | | | [address] | | | | | | [phone] | | | +--------+---------+ + + + [...] might be different f rom the original. [id number] BRODY FARAH Date of : 1990 Start of care: 02/14/2012 Date of onset: 02/14/2012 Referring/Attending Practitioner: Janak Riojas MD . Primary/Referral Diagnosis/ICD-9: 355.71B CRPS (complex regional pain syndrome), lower limb Insurance: Payor: [facility] [email or web address] [facility] Plan: BCBS OUT OF STATE Product Type: PP O Service period from: 02/14/2012 to: 08/12/2012 Number visits used/authorized: 11/25 [facility] PHYSICAL THERAPY INITIAL EVALUATION SUBJECTIVE: Age: [...] no pain relief. Admitted to the inpatient [facility] program for 1 month in [...] Diagnostic evaluation: Records from CRPS program at [facility]. Suggest three phase bone sca [...] employed by the psychologists here at the [facility]. 2.2 Physical therapy can reduce pain and improve functional status. Suggest Guillermo Sanon. 3. Medication suggestions: 3.1 Continue titrating up duloxetine. 3.2 As for any patient being managed with chronic opioids, we do recommend that the patient have a signed [facility] Material Risk Notice, agree to whatever [...] and hemr oidectomy. Social History: lives in [place], 22 years old, not working [...] or concerns about therapy: she lives in [place]. She is r equesting family [...] provided with a token and bocanegra for [facility] site. Treatment began: 1345hrs Treatment ended: 1430hrs Manual therapy: 0min Therapeutic exercise: 15 min ASSESSMENT: pt presents with 10-year history of ankle pain post trauma and multiple surgeri es. She thinks she developed CRPS in 2004. She was diagnosed with CRPS and spent a month in the program at [facility] working through aggressive desensitization and activation which prov ided no lasting benefit. She lives in [place], is going to school, and ambulates [...] She can work with her PT in [place]. CLINICAL PRIORITIES: 1-follow up with Dr [...] change in their status. Guillermo Sanon MSPT [facility] Outpatient Rehabilitation Services Mailcode: Ch3p [address] [facility] [facility] [address] documented in this encounter Plan of Treatment Not on filedocumented as of this encounter Procedures + +--------+ + + + | Procedure Name | Priori | Date/Time | Associated Diagnosis | Comments | | | ty | | | | + +--------+ + + + | MI THERAPEUTIC | Routin | 02/16/2012 | CRPS (complex | | | EXERCISES | e | 3:34 PM | regional pain | | | | | PDT | syndrome), lower | | | | | | limb | | + +--------+ + + + | MI PHYS THERAPY | Routin | 02/16/2012 | [...]
--- OUTSIDE RECORDS SUMMARY | ~2020-06-02 | XMS | Encounter Summary ---
Demographics + + + | Address | [address] | | | [place] [address] | + + + | Home Phone [...] Team Providers + +------+ + | Care [id number] Armor Crewman Name | Role | Phone | + +------+ + | Justo Vazquez MD | PCP | | + +------+ + Encounter Details +--------+ + + + + | Date | Type | Department | Care Team | Description | +--------+ + + + + | 01/02/ | Telephone | [facility] | Ilene Bright, | | | 2019 | | Pain Center at | NUTRITIONALIST [address] | | | | | [facility] [place] [facility] | [place], [place] | | | | | [address] | [address] | | | | | [place] for [facility] | [phone] | | | | | and Healing, | | | | | | | | | | | | Floor [place], [place] | | | | | | [address] | | | | | | [phone] | | | +--------+ + + + [...]
--- OUTSIDE RECORDS SUMMARY | ~2020-06-02 | XMS | Encounter Summary ---
Demographics + + + | Address | [address] | | | [place] [address] | + + + | Home Phone [...] Providers + +------+ + | Care A P Manager Name | Role | Phone | [...] + + | 09/15/ | Telephone | WIYG Odom | Alex Sanchez, | Question | | 2018 | | Pain Center at | ,PhD [address] | | | | | [facility] | [place] Giuliana | | | | | [address] | [place], [place] | | | | | [facility] | [address] | | | | | and [place], | [phone] | | | | | Building | | | | | | Floor [place], [place] | | | | | | [address] | | | | | | [phone] | | | +--------+ + + + [...]
--- OUTSIDE RECORDS SUMMARY | ~2020-06-02 | XMS | Encounter Summary ---
Demographics + + + | Address | [address] | | | [place] [address] | + + + | Home Phone [...] Providers + +------+ + | Care Tape Maker Name | Role | Phone | [...] | | 2017 | | Center at [facility] [address] | MD Melissa | Marker instructions) | | | | [address] | | | | | | for Health and | | | | | | Healing, [address] | | | | | | [place], [place] | | | | | | [address] | | | | | | [phone] | | | +--------+ + + + [...]
--- OUTSIDE RECORDS SUMMARY | ~2020-06-02 | XMS | Encounter Summary ---
Demographics + + + | Address | [address] | | | [place] [address] | + + + | Home Phone [...] Providers + +------+ + | Care Product Manager E Commerce Name | Role | Phone | + [...] + + | 10/21/ | Hospital | [place] [address] [address] | [place], | | | 2015 - | Encounter | [facility] | MD Tala [address] | | | | | [address] [place] [address] | [facility] | | | 10/25/ | | [place], [place] | [place], [place] | | | 2014 | | [address] | [address] | | | | | [phone] | [phone] | | | | | | | | | | | | Clifton Childers | | | | | | MD Nhan [address] [facility] | | | | | | [facility] | | | | | | [place], [place] | | | | | | [address] | | | | | | [phone] | | | | | | | [...] child. Followed by Dr. Katy berrios at [facility] in [place], [place]. Has been on a stable regimen [...] agreeable with our plans. Clifton Childers MD Professor Of Visual Arts Division of Hospital Medicine Teaching Attending I [...] child. Followed by Dr. Katy berrios at [facility] in [place], [place], has been on a stable regimen [...] and plan. Lolita Ma MD, MPH Pager #[phone] PGY-1, Anesthesiology [facility] Associated attestation - Clifton Childers MD - [...] agreeable with our plans. Clifton Childers MD Professor Of Visual Arts Division of Hospital Medicine Teaching Attending I [...] child. Followed by Dr. Katy berrios at [facility] in [place], [place], has been on a stable regimen [...] and plan. Lolita Ma MD, MPH Pager #[phone] PGY-1, Anesthesiology [facility] Associated attestation - Clifton Childers MD - [...] history, primarily secondary to [facility] of complicated ankle fracture age [...] would like the patient to establish in usp counseling and/or CBT as an outpatient if willing. Patient/Family Goals & Expectations: Above problems discussed with the patient who understands and is agreeable with our plans. Clifton Childers MD Professor Of Visual Arts Division of Hospital Medicine Teaching Attending I [...] good coping mechanism Heme/Lymphatic: negative Endocrine: negative Gaming Surveillance Observer: negative Past Medical History: History of chronic [...] for he r CRPS in the pastm [facility] pharmacy does not carry this so we are trying to arrange for her to take her home medication via pharmacy approval 5. APS will sign off but please call with questions/concerns Aba Dorman MD, PGY 3 Men'S Golf Coach [place]-2 APS Pager: [phone] BILLING INFORMATION Deferred to attending physician. Ms. [...] up at this point. Please contact APS (#[id number]) if further assistance is needed. Ulices Lopez MD BILLING INFORMATION [facility] DEPARTMENT: [phone] Place of Service:- Inpatient Date of Service: 10/23/2015 CSN: [id number] Suggested Modifier: GC - Resident Involved Suggested CPT: 40351 - Follow up visit (includes PNB) - [...] recd call from Dr. Madrid from [facility]. She has known pt for many yea rs and suggested ketamine and propofol gtt. Updated her on APS recommendations. She will hav e her office fax her clinic records to us. Pt was seen with Dr. Childers. Milton Moreau MD PGY-3, Internal Medicine Pager [phone] Pro Edwards RN - 10/22/2015 10:06 AM PSTActing as scribe for the UR Committee Physician named below. The primary medical team for this patient and the [facility] UR Committee have agreed after furth er study that an inpatient admission was not medically necessary. This hospital stay is con verted to an outpatient stay through use of Medicare Condition Code 44. The patient was not ified of this change in writing. The providers involved in this decision were: For patient s primary medical team: Melissa Childers MD For [facility] UR Committee: Kerry HARRIS RN CM [...] | | | LABORATORY | | | LEBANESE | | | SERVICES, | | | [...] | + + + + + | [facility] | [address] | [place] [address] | | | SERVICES, CORE | PARK [...] | | + +---------+ + + | [facility] DEPARTMENT OF | | | | [...] | + + + | STAT | ARSU | | | LABORATORY | | | LILLIAN CROSS | + + + + + + + + | Performing | Address | City/State/Zipcode | Phone Number | | Organization | | | | + + + + + | [facility] | [address] | [place] [address] | | | SERVICESLILLIAN | [address] [...] | | | LABORATORY | | | LEB[place]ESE | | | SERVICES, | | | [...] the MDRD equation recommended by the | [facility] | | National Kidney Disease Education [...] [facility] | [address] | [place] [address] | | | SERVICES, CORE | PARK [...] | + + + + + | [facility] | [address] | [place] [address] | | | SERVICES, CORE | GUILLERMO [...] [facility] | [address] | [place] [address] | | | SERVICES, CORE | PARK [...] | + + + + + | [facility] | [address] | [place] [address] | | | SERVICES, CORE | PARK [...] | + + + + + | [facility] | [address] | [place] [address] | | | SERVICES, CORE | GUILLERMO [...] | | | LABORATORY | | | LEBANESE | | | SERVICES, | | | [...] KEVIN SHAH | [address] | [place] [address] | | | SERVICES, CORE | PARK [...] | | | 1 dose, [facility] 10/23/15 at 1245 | | PM PST | | | | + +-------+ +-------+---+---+ +---+---+ | | | +---+---+ + +-------+ +--------+---+---+ | ibuprofen (MOTRIN) tablet 600 | Given | 10/25/20 | 600 mg | | | | mg 600 mg, oral, EVERY 6 HOURS, | | 15 8:05 | | | | | First dose on [facility] 10/23/15 at | | AM PST | [...] | | | NEEDED, Starting [facility] 10/23/15 at | | | | | [...]
--- OUTSIDE RECORDS SUMMARY | ~2020-06-02 | XMS | Encounter Summary ---
Demographics + + + | Address | [address] | | | [place] [address] | + + + | Home Phone [...] Providers + +------+ + | Care Structural Steel Trades Worker Name | Role | Phone | [...] | Pain Center at | MD [address] [facility] | | | | | [facility] | [facility] [address] | | | | | [address] | [place], [place] | | | | | Center for Health | [address] | | | | | and Martina, | [phone] | | | | | | | | | | | Floor [place], [place] | | | | | | [address] | | | | | | [phone] | | | +--------+ + + + [...]
--- OUTSIDE RECORDS SUMMARY | ~2020-06-02 | XMS | Encounter Summary ---
Demographics + + + | Address | [address] | | | [place] [address] | + + + | Home Phone [...] Team Providers + +------+ + | Care Epidemiologist Name | Role | Phone | + [...] | Diagnoses | Beulah | Edu Pt Boat Engines Installer | | | | Therapy | CRPS | Janak Martinez MD | [address] | | | | | (complex | [address] | | | | | regional | [address] | Mailcode: | | | | | pain | Mailstop | [facility] | | | | | syndrome), | [id number] | for Health | | | | | lower limb | [place], [place] | and Healing, | | | | | Gait | [address] | Building 1 | | | | | disturbance | Phone: | [place], [place] | | | | | Muscle pain | [phone] | [address] | | | | | Procedures | Fax: | Phone: | | | | | PHYSICAL | [phone] | [phone] | | | | | THERAPY | [...] | | | | [address] | [place] [address] | syndrome), lower | | | | [address] | [phone] | limb (Primary Dx) | | | | [facility] | | | | | | and Healing, | | | | | | Building 1, | | | | | | Floor [place], [place] | | | | | | [address] | | | | | | [phone] | | | +--------+---------+ + + + [...] might be different f rom the original. [id number] BRODY FARAH Date of : 1990 Start of care: 02/14/2012 Date of onset: 02/14/2012 Referring/Attending Practitioner: Janak Riojas MD . Primary/Referral Diagnosis/ICD-9: 355.71B CRPS (complex regional pain syndrome), lower limb Insurance: [facility] [employer] [facility] Plan: BCBS OUT OF STATE Product Type: PP O Service period from: 02/14/2012 to: 08/12/2012 Number visits used/authorized: 03/25 [facility] PHYSICAL THERAPY PROGRESS [...] any change in their status. Guillermo Sanon [facility] Outpatient Rehabilitation Services Mailcode: Ch3p [address] [facility], [address] [place] [address] documented in this encounter Plan of Treatment Not on filedocumented as of this encounter Procedures + +--------+ + + + | Procedure Name | Priori | Date/Time | Associated Diagnosis | Comments | | | ty | | | | + +--------+ + + + | [place] MANUAL THER | Routin | 06/05/2012 | CRPS (complex | | | TECH,1+REGIONS,EA 15 | e | 5:15 PM | regional pain | | | MIN | | PDT | syndrome), lower | | | | | | limb | | + +--------+ + + + | [place] THERAPEUTIC | Routin | 06/05/2012 | CRPS [...]
--- OUTSIDE RECORDS SUMMARY | ~2020-06-02 | XMS | Encounter Summary ---
Demographics + + + | Address | [address] | | | [place] [address] | + + + | Home Phone [...] Team Providers + +------+ + | Care Rescue Worker Name | Role | Phone | [...] | | | sympathetic | [place] | [address]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 | FAMILY | [address]stop | | | | | of lower | MEDICINE P | [id number] | | | | | limb | [address] | [place], [place] | | | | | | [place], | [address] | | | | | | [place] [address] | Phone: | | | | | | Phone: | [phone] | | | | | | [phone] | Fax: | | | | | | Fax: | [phone] | | | | | | [phone] | | +--------+--------+ + + + + Encounter Details +--------+---------+ + + + | Date | Type | Department | Care Team | Description | +--------+---------+ + + + | 09/04/ | Office | [facility] Comprehensive | Dale Cantu, | CRPS (complex | | 2011 | Visit | Pain Center at | [address] [facility] | regional pain | | | | [facility] | [facility] [address] | syndrome), lower | | | | [address] | [place], [place] | limb; Gait | | | | [facility] | [address] | disturbance; Sleep | | | | and Healing, | [phone] | disturbance, | | | | Building | | unspecified; | | | | Floor [place], [place] | | Adjustment reaction | | | | [address] | | | | | | [phone] | | | +--------+---------+ + + + [...] CRPS patients (Loretta Rousseau et al. Katrina Cattyman Med. 2010;152:152-158) . Bisphosphonate trial. Typically, I [...] and a pain drawing which I reviewed. [facility] Brief Pain Inventory: (ten= worst possible pain [...] leads 08/02/2012 [facility], Surgeon: Dale Cantu MD Family [...] CENTER was reviewed. Additional Review of Systems sean [...] of Pain: 13(1):17-21, 2008). DALE CANTU MD Shirt Folder, [facility] Distribution District Supervisor, Pain Medicine Professor, Anesthesiology & Perioperative [...]
--- OUTSIDE RECORDS SUMMARY | ~2020-06-02 | XMS | Encounter Summary ---
Demographics + + + | Address | [address] | | | [place] [address] | + + + | Home Phone [...] Providers + +------+ + | Care Rigging Loft Repairer Name | Role | Phone | [...] Rd | | | | | | [place], [place] | | | | | | [address] | | | +--------+ + + + [...]
--- OUTSIDE RECORDS SUMMARY | ~2020-06-02 | XMS | Encounter Summary ---
Demographics + + + | Address | [address] | | | [place] [address] [...] Team Providers + +------+ + | Care Panelboard Operator Name | Role | Phone | [...] | | | | [address] [place] | [facility] [place] | | | | | for Health and | [address] | | | | | Healing, Building 2 | [phone] | | | | | [place], [place] | | | | | | [address] | | | | | | [phone] | | | +--------+ + + + [...]
--- OUTSIDE RECORDS SUMMARY | ~2020-06-02 | XMS | Encounter Summary ---
Demographics + + + | Address | [address] | | | [place] [address] | + + + | Home Phone [...] Team Providers + +------+ + | Care Education Liaison Name | Role | Phone | + +------+ + | Justo Vazquez MD | PCP | | + +------+ + Encounter Details +--------+ + + + + | Date | Type | Department | Care Team | Description | +--------+ + + + + | 04/03/ | Telephone | [facility] | Alex Sanchez, | | | 2019 | | Pain Center at | ,PhD [address] | | | | | [facility] | [address] | | | | | [address] | [place], [place] | | | | | [place] for [facility] | [address] | | | | | and Healing, | [phone] | | | | | | | | | | | Floor [place], [place] | | | | | | [address] | | | | | | [phone] | | | +--------+ + + + [...]
--- OUTSIDE RECORDS SUMMARY | ~2020-06-02 | XMS | Encounter Summary ---
Demographics + + + | Address | [address] | | | [place] [address] | + + + | Home Phone [...] Team Providers + +------+ + | Care Chipper Name | Role | Phone | + [...] | | Pain | Complex | Ilene, TANK CAR CLEANER | Catriona M, | | | | Management | regional | [address] | PSY D [address] | | | | | pain | [address] | [address] | | | | | syndrome | [place], [place] | [place], [place] | | | | | type 1 of | [address] | [address] Phone: | | | | | left lower | Phone: | [phone] | | | | | extremity | [phone] | Fax: | | | | | Intractable | Fax: | [phone] | | | | | cyclical | [phone] | | | | | | vomiting [...] | | | | | | [facility] | | | | | | [...] 10/11/ | Office | Pain Center at [facility] | Jamel Bravo, | 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 The patient was referred for pain [...] by physician. Concentration is 150mg/mL. Compounded by [employer] ([phone]), Disp: , Rfl: 5 lamoTRIgine 200 mg [...] oral recon soln, Take as directed by [facility]- 2 gallon bowel prep, Disp: 8000 [...] e. 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 For enjoyment the patient watches TV, reads, [...] time I spent was approximately 50 minutes quof-ze-fvut with the patient and approxima tely 1 hour 40 minutes of dfj-pjnb-sm-face testing, interpreting and synthesizing results. Jamel Bravo, PhD PAIN CENTER AT [facility] 15TH FLOOR [address] [facility] Mail Code: Ch15p [place] [address] documented in this en counter [...]
--- OUTSIDE RECORDS SUMMARY | ~2020-06-02 | XMS | Encounter Summary ---
Demographics + + + | Address | [address] | | | [place] [address] | + + + | Home Phone [...] Providers + +------+ + | Care Physical Medicine Teacher Name | Role | Phone | [...] + + | 03// | Telephone | [facility] | Alex Sanchez, | Medication (clarify | | 2018 | | Pain Center at | ,PhD [address] | sig on Ketamine) | | | | [facility] | [facility] | | | | | [address] | [place], [place] | | | | | [facility] | [address] | | | | | and Healing, | [phone] | | | | | Building | | | | | | Floor [place], [place] | | | | | | [address] | | | | | | [phone] | | | +--------+ + + + [...]
--- OUTSIDE RECORDS SUMMARY | ~2020-06-02 | XMS | Encounter Summary ---
Demographics + + + | Address | [address] | | | [place] [address] | + + + | Home Phone [...] Team Providers + +------+ + | Care Aerial Gunner Name | Role | Phone | + [...] Pain | | 2016 | | Center [place] [address] [address] | | | | | | [facility] | | | | | | for Health and | | | | | | Healing, Building 2 | | | | | | [place], [place] | | | | | | [address] | | | | | | [phone] | | | +--------+ + + + [...]
--- OUTSIDE RECORDS SUMMARY | ~2020-06-02 | XMS | Encounter Summary ---
Demographics + + + | Address | [address] | | | [place] [address] | + + + | Home Phone [...] Team Providers + +------+ + | Care Diagnostic Radiologic Technologist Name | Role | Phone | [...] | | | Spasticity | Ave | [facility] [place] | | | | | Procedures | [facility] [place] | [address] | | | | | CONSULT TO | [address] | Phone: | | | | | PAIN | Phone: | [phone] | | | | | MANAGEMENT | [phone] | Fax: | | | | | | Fax: | [phone] | | | | | | [phone] | | +--------+---------+ + + + + [...] | | MD Celia | MD Brendan [address] | | | | | Fibromyalgia | [address] | [address] | | | | | Spasticity | Ave | [address] | | | | | Epigastric | [place], [place] | Rd [place], | | | | | pain | [address] | [place] | | | | | Procedures | Phone: | [address] | | | | | REQUEST TO | [phone] | Phone: | | | | | SURGERY | Fax: | [phone] | | | | | PERINATAL BREASTFEEDING ASSISTANT | [phone] | Fax: | | | | | IN INJECT | | [phone] | | | | | TRIGGER | [...] Pain Medicine | Diagnoses | Chasity, | C2 Tactical Analysis Technician Chh1 | | | | / Pain | Abdominal | MD Kenny | [address] | | | | Management | pain, | [address] | [address] Center | | | | | unspecified | [facility] | for Health | | | | | location | Rd | and Healing, | | | | | Procedures | [place], [place] | Building | | | | | CONSULT TO | [address] | 1,15th Floor | | | | | PAIN | | [place], [place] | | | | | MANAGEMENT | | [address] | | | | | | | Phone: | | | | | | | [phone] | | | | | | | Fax: | | | | | | | [phone] | +--------+--------+ + + + + Encounter Details +--------+---------+ + + + | Date | Type | Department | Care Team | Description | +--------+---------+ + + + | 10/11/ | Office | [facility] Comprehensive | Vern Robertson, | Epigastric pain | | 2017 | Visit | Pain Center at | 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 * Please sign up for K[employer]ART. This is the best way to communicate with me. It will save you time in the long run. The procedure you discussed with your doctor is called: Trigger point injection of abdomina l scar. Please make sure this is scheduled with the Mellowing Machine Operator. PRE-PROCEDURE INSTRUCTIONS 1. Please bring a hazmat cdl a driver with you as we may give you medications that impair your ability to drive. This is necessary even if you do not receive sedation. You may take a taxi or ri [employer] if you are accompanied by a responsible [...] or blood thinning medications (other than aspirin), [facility] doctor who is doing your procedure will communicate with the provider who is prescribing y our anticoagulant therapy. If you do not have clear instructions on what to do with your an ticoagulant by 2 weeks before your procedure, please contact [facility] to cl arify your instructions. The phone number for questions or concerns is [phone]. * Consider Lidoderm topical or compound prescription [...] muscle hyper tonicity. * Consider increasing your Denton 3 fats. Denton-3 fats are precursors to mediators of inflammation [...] oil if approved by your PCP or field laboratory operator. * Eliminate High Fructose Holmes Syrup and Sugar from your diet as [...] treatment plan. * Follow up with [facility] as needed. It [...] reference. documented in this encounter Progress Notes Estefnay March MA - 10/11/2017 1:15 PM PSTCMA [...] NP - 1 12/11/2016 1:15 PM PST [facility] Return Visit Date: 10/11/2017 Chief Complaint Patient presents with Abdominal pain Back pain Foot pain History of Present Illness: Tracie Farah is a 27 year old female, whose last appoi ntment at the [facility] [place] was 07/11/17 with TERESA Clark, for a [...] She reports multiple diagnostic tests conducted at [facility] in [place], [place] including barium swallow and Hydrogen breath [...] Torodol shots: only form of symptom relief. SUB PRIOR Brief Pain Inventory: (ten= worst possible pain [...] History Social History Narrative Single. Goes to [employer] with a light load. Has been working at [employer], can' t work on [employer]i [employer]. Has roommates. Allergies Allergen Reactions Morphine Anaphylaxis [...] by physician. Concentration is 150mg/mL. Compounded by [facility] ) LAMOTRIGINE 200 MG TABLET Take [...] directed by [facility] Digestive [facility]- 2 gallon bowel prep POLYETHYLENE GLYCOL 3350 [...] reviewed. - Review old medical records (from [facility]). Pertinent findings include: abdominal surger y [...] treatment plan. * Follow up with [facility] as needed. IGuillermo am scribing for Vern Robertson NP on 10/11/2017 I have reviewed and verified the above scribed note of my visit with this patient as record ed by Guillermo Hope. Vern Robertson NP [facility] AT [facility] 15TH FLOOR [address] Mail Code: Ch15p [place] [address] documented in this e ncounter Plan of Treatment Not on filedocumented as of this encounter Visit Diagnoses + + | Diagnosis | + + | Epigastric pain - Primary Abdominal pain, epigastric | + + | Spasticity Abnormal involuntary movements | + + documented in this encounter
--- OUTSIDE RECORDS SUMMARY | ~2020-06-02 | XMS | Encounter Summary ---
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 | FAMILY | Mailstop | | | | | of lower | MEDICINE P | [id number] | | | | | limb | [address] | [place], [place] | | | | | | [place], | [address] | | | | | | [place] [address] | Phone: | | | | | | Phone: | [phone] | | | | | | [phone] | Fax: | | | | | | Fax: | [phone] | | | | | | [phone] | | +--------+--------+ + + + + Encounter Details +--------+---------+ + + + | Date | Type | Department | Care Team | Description | +--------+---------+ + + + | 03/17/ | Office | [facility] | Dale Cantu, | CRPS (complex | | 2011 | Visit | Pain Center at | [address] | regional pain | | | | [place] | [address] [id number] | syndrome), lower | | | | [address] | [place], [place] | limb; Adjustment | | | | [place] for [facility] | [address] | reaction; Muscle | | | | and Healing, | [phone] | pain; Gait | | | | [facility] | | disturbance | | | | Floor [place], [place] | | | | | | [address] | | | | | | [phone] | | | +--------+---------+ + + + [...] Pain: After Your Visit", log into your CICCWORLD nt at [email or web address]. You can enter G828 in the [employer] Library" search box. Not on Valcont? Review the MyChart section of your After Visit Summary for directions on liz rea to sign up. 4173-5164 Symptify. Care instructions adapted under license by [facility]. This care instruction is for use with your licensed healthcar e professional. If you have questions about a medical condition or this instruction, always ask your healthcare professional. Symptify disclaims any warranty or liabili ty for your use of this information. Content Version: 9.2.991560; Last Revised: April 29, 2011 Nortriptyline for [...] Pain: After Your Visit", log into your CICCWORLD nt at [email or web address]. You can enter G828 in the [employer]" search box. Not on Miner? Review the Vodat Internationalhart section of your After Visit Summary for directions on ho w to sign up. 2837-8305 Symptify. Care instructions adapted under license by [facility] [place]. This care instruction is for use with your licensed healthcar e professional. If you have questions about a medical condition or this instruction, always ask your healthcare professional. Symptify disclaims any warranty or liabili ty for your use of this information. Content Version: 9.2.886756; Last Revised: April 29, 2011 documented in [...] documented in our notes. DALE CANTU MD Historical Manuscripts Curator, [facility] Package Worker, Pain Medicine Professor, Anesthesiology & Perioperative Medicine NAMollMarquis manriquez MD - 03/17/2012 3:42 PM PDT [facility] Return [...] her pain. She continues to take 6-8 [place] per day and 600 mg of ibuprofen [...] drawing which I reviewed. [facility] Brief Pain Inventory: (ten= worst possible [...] The Review of Systems obtained by the [facility] was reviewed. Additional Review of [...] you require any medication refills today? 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 Bones, Joints, and Muscles: cramps [...]
--- OUTSIDE RECORDS SUMMARY | ~2020-06-02 | XMS | Encounter Summary ---
Demographics + + + | Address | [address] | | | [place] [address] | + + + | Home Phone [...] Providers + +------+ + | Care Senior Category Manager Name | Role | Phone | + +------+ + | Justo Vazquez MD | PCP | | + +------+ + Encounter Details +--------+ + + + + | Date | Type | Department | Care Team | Description | +--------+ + + + + | 12/12/ | Telephone | [facility] | Alex Sanchez, | | | 2019 | | Pain Center at | ,PhD [address] | | | | | [facility] | [address] | | | | | [address] | [place], [place] | | | | | [place] for [facility] | [address] | | | | | and Healing, | [phone] | | | | | | | | | | | Floor [place], [place] | | | | | | [address] | | | | | | [phone] | | | +--------+ + + + [...]
--- OUTSIDE RECORDS SUMMARY | ~2020-06-02 | XMS | Encounter Summary ---
Demographics + + + | Address | [address] | | | [place] [address] | + + + | Home Phone [...] Team Providers + +------+ + | Care Flame Hardening Machine Operator Name | Role | Phone [...] Martinez MD | [facility] [address] | | | | | (complex | [address] | [address] | | | | | regional | [address] | [address] | | | | | pain | Mailstop | [address], | | | | | syndrome), | [id number] | Basement | | | | | lower limb | [place], [place] | [place], [place] | | | | | Procedures | [address] | [address] | | | | | [place] BONE &/[place] | Phone: | Phone: | | | | | JOINT | [phone] | [phone] | | | | | IMAGING 3 | Fax: | Fax: | | | | | PHASE | [phone] | [phone] | +--------+--------+ + + + + Consult [...] | CRPS | Allegra Nieto, | Dale Martniez MD | | | | | (complex | [place] | [address] | | | | | regional | [place] | [address] | | | | | pain | FAMILY | Mailstop | | | | | syndrome), | MEDICINE P | [id number] | | | | | lower limb | [address] | [place], [place] | | | | | Gait | [place], | [address] | | | | | disturbance | [place] [address] | Phone: | | | | | Muscle pain | Phone: | [phone] | | | | | Procedures | [phone] | Fax: | | | | | REQUEST TO | Fax: | [phone] | | | | | SURGERY | [phone] | | | | | | ART CRITIC | | | +--------+--------+ + + + + Consultation (Routine) +--------+--------+ + + + + | Status | Reason | Specialty | Diagnoses / | Referred By | Referred To | | | | | Procedures | Contact | Contact | +--------+--------+ + + + + | Closed | | Psychology / | Diagnoses | Beulah, | Patient Resource Specialist Psych | | | | Pain | CRPS | Dale Martinez MD | [facility] [address] | | | | Management | (complex | [address] | | | | | regional | [address] | Center for | | | | | pain | Mailstop | Health and | | | | | syndrome), | [id number] | Healing, | | | | | lower limb | [place], [place] | Building | | | | | Gait | [address] | 1[address] Floor | | | | | disturbance | Phone: | [place], [place] | | | | | Muscle pain | [phone] | [address] | | | | | Procedures | Fax: | Phone: | | | | | CONSULT TO | [phone] | [phone] | | | | | PAIN CENTER | | Fax: | | | | | | | [phone] | +--------+--------+ + + + + Physical Therapy (Routine) +--------+--------+ + + + + | Status | Reason | Specialty | Diagnoses / | Referred By | Referred To | | | | | Procedures | Contact | Contact | +--------+--------+ + + + + | Closed | | Physical | Diagnoses | Beulah, | Edu Pt Patient Resource Specialist | | | | Therapy | CRPS | Dale Martinez MD | [address] [address] | | | | | (complex | [address] | | | | | regional | [address] | Mailcode: | | | | | pain | Mailstop | [facility] | | | | | syndrome), | [id number] | for Health | | | | | lower limb | [place], [place] | and Healing, | | | | | Gait | [address] | [facility] 1 | | | | | disturbance | Phone: | [place], [place] | | | | | Muscle pain | [phone] | [address] | | | | | Procedures | Fax: | Phone: | | | | | PHYSICAL | [phone] | [phone] | | | | | THERAPY | [...] | | | 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 | FAMILY | Mailstop | | | | | of lower | MEDICINE P | [id number] | | | | | limb | [address] | [place], [place] | | | | | | [place], | [address] | | | | | | [place] [address] | Phone: | | | | | | Phone: | [phone] | | | | | | [phone] | Fax: | | | | | | Fax: | [phone] | | | | | | [phone] | | +--------+--------+ + + + + Encounter Details +--------+---------+ + + + | Date | Type | Department | Care Team | Description | +--------+---------+ + + + | 02/13/ | Office | [facility] | Dale Cantu, | CRPS (complex | | 2011 | Visit | Pain Center at | MD [address] | regional pain | | | | [facility] | [facility] [id number] | syndrome), lower | | | | [address] | [place], [place] | limb; Gait | | | | [facility] | [address] | disturbance; Muscle | | | | and Healing, | [phone] | pain; Adjustment | | | | | | reaction | | | | Floor [place], [place] | | | | | | [address] | | | | | | [phone] | | | +--------+---------+ + + + [...] evaluation: Records from CRPS program at [facility]. 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 [...] employed by the psychologists here at the [facility]. 2.2 Physical therapy can reduce pain and improve functional status. Suggest Guillermo Sanon . 3. Medication suggestions: 3.1 Continue titrating up duloxetine. 3.2 As for any patient being managed with chronic opioids, we do recommend that the patien t have a signed [facility] Material Risk Notice, agree to whatever [...] sintia sure this is scheduled with the Lead Etl Developer. Please bring a maintenance truck driver with you. We may give you medications that make you drowsy or otherw ise unsafe to drive. If you do not have a maintenance truck driver, we will not be able [...] PLEASE CONTACT THE COMPREHENSIVE PAIN CENTER AT [phone]) FOR QUESTIONS OR IF YOU NEED TO CANCEL YOUR APPOINTMENT. [facility] Center documented in this [...] pain management consultation by BJORN Mi [place] [facility] MEDICINE [address] [place] [address] Reason for visit Chief Complaint Patient presents with Pain in left leg Ankle pain left History of Present Illness: Tracie Farah is a 21 year old female with pain locate d in left lower extremity. She has been diagnosed with CRPS. She is referred to [facility] for consultation regarding this [...] by several orthopedic surgeons, Dr. Charles in [place], physical therapy, Occupational Therapy. Diagnostic and radiologic [...] no pain relief. Admitted to the inpatient [facility] program for 1 month in the summer [...] entin, pregabalin, topiramate, tramadol, multiple opioids. Current [place] about 6-8/day. St arting duloxetine, at 30 mg/day. She feels that the most effective medication treatments ar e or have been opioids. As a result of her pain, Ms. Farah notes multiple changes in her life, including: "I don 't have a life, can't work, can't go to school." Poor mood, sleep, activity. Using crutche s recently because of pain flare. 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 Goes to [employer] college with a light load. Has been working at [employer], can' t work on [employer]. Has roommates. Current Medication List 02/14/12 9:50 [...] Anaphylaxis As part of today's visit the [facility] new patient questionnaire was [...] rambo, the pediatric inpatient pain program at [facility], and two attempted lumbar sympathetic blocks. Last [...] CRPS patients (Loretta Rousseau, et al. Katrina Net Sql Developer Med. 2010;152: 152-158). Other treatment options for the future: Spinal cord stimulation (SCS) has good evidence f or providing longterm relief in CRPS (Complex Regional Pain Syndrome) [...] [facility]: [facility] Suggest three ph ase bone [...] employed by the psychologists here at the [facility]. ORDER PLACED 2.2 Physical therapy can reduce pain and improve functional status. Suggest Guillermo Sanon . ORDER PLACED 3. Medication suggestions: 3.1 Continue titrating up duloxetine. 3.2 As for any patient being managed with chronic opioids, we do recommend that the patien t have a signed [facility] Material Risk Notice, agree to whatever [...] her PCP, BJORN Villanueva. DALE CANTU MD Lna, [facility] Optical Design Engineer, Pain Medicine Professor, Anesthesiology & Perioperative [...] | + +---------+ + + | [facility] DEPARTMENT OF | | | | [...]
--- OUTSIDE RECORDS SUMMARY | ~2020-06-02 | XMS | Encounter Summary ---
Demographics + + + | Address | [address] | | | [place] [address] | + + + | Home Phone [...] Team Providers + +------+ + | Care Esol Teacher Assistant Name | Role | Phone | [...] | Encounter | Pain Center at | TALENT SCOUT [address] | | | | | [facility] | [place], [place] | | | | | [address] | [address] | | | | | [place] for [facility] | [phone] | | | | | and Healing, | | | | | | | | | | | | Floor [place], [place] | | | | | | [address] | | | | | | [phone] | | | +--------+ + + + [...]
--- OUTSIDE RECORDS SUMMARY | ~2020-06-02 | XMS | Encounter Summary ---
Demographics + + + | Address | [address] | | | [place] [address] | + + + | Home Phone [...] Team Providers + +------+ + | Care Commodity Buyer Name | Role | Phone | [...] + + | 10/21/ | Hospital | [place] [address] [address] | [place], | | | 2015 - | Encounter | [facility] | MD Tala [address] | | | | | [address] [place] [address] | [facility] | | | 10/25/ | | [place], [place] | [place], [place] | | | 2014 | | [address] | [address] | | | | | [phone] | [phone] | | | | | | | | | | | | Clifton Childers | | | | | | MD Nhan [address] | | | | | | [facility] | | | | | | [place], [place] | | | | | | [address] | | | | | | [phone] | | | | | | | [...] child. Followed by Dr. Katy berrios at [facility] in [place], [place]. Has been on a stable regimen [...] agreeable with our plans. Clifton Childers MD Food Mixer Division of Hospital Medicine Teaching Attending I [...] child. Followed by Dr. Katy berrios at [facility] in [place], [place], has been on a stable regimen [...] and plan. Lolita Ma MD, MPH Pager #[phone] PGY-1, Anesthesiology [facility] Associated attestation - Clifton Childers MD [...] agreeable with our plans. Clifton Childers MD Food Mixer Division of Hospital Medicine Teaching Attending I [...] child. Followed by Dr. Katy berrios at [facility] in [place], [place], has been on a stable regimen [...] and plan. Lolita Ma MD, MPH Pager #[phone] PGY-1, Anesthesiology [facility] Associated attestation - Clifton Childers MD [...] history, primarily secondary to CPRS in the [facility] ng of complicated ankle fracture [...] would like the patient to establish in correction counseling and/or CBT as an outpatient if willing. Patient/Family Goals & Expectations: Above problems discussed with the patient who understands and is agreeable with our plans. Clifton Childers MD Food Mixer Division of Hospital Medicine Teaching Attending I [...] good coping mechanism Heme/Lymphatic: negative Endocrine: negative Bulldozer/Loader/Compactor/Scraper: negative Past Medical History: History of chronic [...] for he r CRPS in the pastm [facility] pharmacy does not carry this so we are trying to arrange for her to take her home medication via pharmacy approval 5. APS will sign off but please call with questions/concerns Aba Dorman MD, PGY 3 Rolls Mill Operator [place]-2 APS Pager: [phone] BILLING INFORMATION Deferred to attending physician. Ms. [...] up at this point. Please contact APS (#[phone]) if further assistance is needed. Ulices Lopez MD BILLING INFORMATION [facility] DEPARTMENT: [phone] Place of Service:- Inpatient Date of Service: 10/23/2015 CSN: [id number] Suggested Modifier: GC - Resident Involved Suggested CPT: 99249 - Follow up visit (includes PNB) - [...] today recd call from Dr. Madrid from [facility]. She has known pt for many yea rs and suggested ketamine and propofol gtt. Updated her on APS recommendations. She will hav e her office fax her clinic records to us. Pt was seen with Dr. Childers. Milton Moreau MD PGY-3, Internal Medicine Pager [phone] Pro Edwards RN - 10/22/2015 10:06 AM PSTActing as scribe for the UR Committee Physician named below. The primary medical team for this patient and the [facility] UR Committee have agreed after furth er study that an inpatient admission was not medically necessary. This hospital stay is con verted to an outpatient stay through use of Medicare Condition Code 44. The patient was not ified of this change in writing. The providers involved in this decision were: For patient s primary medical team: Melissa Childers MD For [facility] UR Committee: Kerry HARRIS RN CM [...] | | | LABORATORY | | | [place] | | | SERVICES, | | | [...] | + + + + + | [facility] | [address] | [place] [address] | | | SERVICES, CORE | PARK [...] | | + +---------+ + + | [facility] DEPARTMENT OF | | | [...] | + + + + + | [facility] LAB[facility]ATORY | [address] | [place] [address] | | | SERVICESLILLIAN | [address] [...] | | | LABORATORY | | | [place] | | | SERVICES, | | | [...] the MDRD equation recommended by the | [facility] | | National Kidney Disease Education [...] [facility] | [address] | [place] [address] | | | SERVICES, CORE | PARK [...] | + + + + + | [facility] | [address] | [place] [address] | | | SERVICES, CORE | GUILLERMO [...] [facility] | [address] | [place] [address] | | | SERVICES, CORE | PARK [...] | + + + + + | [facility] | [address] | [place] [address] | | | SERVICES, CORE | PARK [...] | + + + + + | [facility] | [address] | [place] [address] | | | SERVICES, CORE | GUILLER[address] [...] | | | LABORATORY | | | [place] | | | SERVICES, | | | [...] [facility]EVIN [facility] | [address] | [place] [address] | | | SERVICES, CORE | PARK [...] | | | | | 1 dose, [facility] 10/23/15 at 1245 | | PM PST | | | | + +-------+ +-------+---+---+ +---+---+ | | | +---+---+ + +-------+ +--------+---+---+ | ibuprofen (MOTRIN) tablet 600 | Given | 10/25/20 | 600 mg | | | | mg 600 mg, oral, EVERY 6 HOURS, | | 15 8:05 | | | | | First dose on [facility] 10/23/15 at | | AM PST [...] | | | | | NEEDED, Starting [facility] 10/23/15 at | | | | [...]
--- OUTSIDE RECORDS SUMMARY | ~2020-06-02 | XMS | Encounter Summary ---
Demographics + + + | Address | [address] | | | [place] [address] | + + + | Home Phone [...] Providers + +------+ + | Care Automatic Serging Machine Operator Name | Role | Phone [...] | [facility] | Aleta Rebollar MD [address] | Nausea | | 2018 | | Pain Center at | [address] | | | | | [facility] | [place], [place] | | | | | [address] | [address] | | | | | [place] for [facility] | [phone] | | | | | and Healing, | | | | | | Building | | | | | | [place], [place] | | | | | | [address] | | | | | | [phone] | | | +--------+ + + + [...]
--- OUTSIDE RECORDS SUMMARY | ~2020-06-02 | XMS | Encounter Summary ---
Demographics + + + | Address | [address] | | | [place] [address] | + + + | Home Phone [...] Providers + +------+ + | Care Instrument Maker And Repairer Name | Role | Phone | [...] Pain | | 2016 | | Center [place] [address] [address] | | | | | | [facility] | | | | | | for Health and | | | | | | Healing, [address] | | | | | | [place], [place] | | | | | | [address] | | | | | | [phone] | | | +--------+ + + + [...]
--- OUTSIDE RECORDS SUMMARY | ~2020-06-02 | XMS | Encounter Summary ---
Demographics + + + | Address | [address] | | | [place] [address] | + + + | Home Phone [...] Providers + +------+ + | Care Industrial Waste Treatment Technician Name | Role | Phone | [...] Rd | | | | | | [place], [place] | | | | | | [address] | | | +--------+ + + + [...]
--- OUTSIDE RECORDS SUMMARY | ~2020-06-02 | XMS | Encounter Summary ---
Demographics + + + | Address | [address] | | | [place] [address] | + + + | Home Phone [...] | Complex | Alex Alba, | Alex Alab, | | | | | regional | ,PhD 3181 | ,PhD 3181 | | | | | pain | [address] | | | | | syndrome | [facility] | [facility] | | | | | type 1 of | Rd | Rd [place], | | | | | left lower | [facility] [place] | [place] | | | | | extremity | [address] | [address] | | | | | Procedures | Phone: | Phone: | | | | | REQUEST TO | [phone] | [phone] | | | | | SURGERY | Fax: | Fax: | | | | | HYDRAULIC DREDGE OPERATOR | [phone] | [phone] | +--------+---------+ + + + + Physical [...] | | regional | ,PhD 8781 | OTPTRehab | | | | | pain | [facility] | [address] | | | | | syndrome | [facility] | [place] | | | | | type 1 of | Rd | [place] | | | | | left lower | [place], [place] | [address] | | | | | extremity | [address] | Phone: | | | | | Procedures | Phone: | [phone] | | | | | PHYSICAL | [phone] | Fax: | | | | | THERAPY | Fax: | [phone] | | | | | REFERRAL | [phone] | | +--------+--------+ + + + + [...] | | | | | Procedures | [place], [place] | Rd [place], | | | | | CONSULT TO | [address] | [place] | | | | | PAIN | | [address] | | | | | MANAGEMENT | | Phone: | | | | | | | [phone] | | | | | | | Fax: | | | | | | | [phone] | +--------+--------+ + + + + Encounter Details +--------+---------+ + + + | Date | Type | Department | Care Team | Description | +--------+---------+ + + + | 06/12/ | Office | [facility] Comprehensive | Alex Sanchez, | Complex regional | | 2018 | Visit | Pain Center at | ,PhD [address] [facility] | pain syndrome type 1 | | | | [facility] | [facility] [address] | of left lower | | | | [address] | [place], [place] | extremity (Primary | | | | Center for Health | [address] | Dx) | | | | and Healing, | [phone] | | | | | | | | | | | Floor [place], [place] | | | | | | [address] | | | | | | [phone] | | | +--------+---------+ + + + [...] in the future, please contact me via Pimovation to request an order to schedule. The procedure you discussed with your doctor is called: SCS DRG TRIAL LUMBAR [facility]. Please make sure this is scheduled with the Calenderer. PRE-PROCEDURE INSTRUCTIONS 1. Please bring a test driver with you as we may give you medications that impair your ability to drive. This is necessary even if you do not receive sedation. You may take a taxi or ri [employer] if you are accompanied by a responsible [...] phone number for questions or concerns is [phone]. documented in this encounter Progress Notes Holly [...] MD,P hD - 06/12/2018 10:00 AM PDT [facility] Return Visit Date: 06/12/2018 Chief Complaint Patient presents with Pain in left leg History of Present Illness: Tracie Farah is a 28 year old female, whose last appoi ntment at the [facility] was May 08, [...] that this mildly agitated her neck pain. GUITAR REPAIR TECHNICIAN Brief Pain Inventory: (ten= worst possible [...] History Social History Narrative Single. Goes to [employer] with a light load. Has been working at [employer], can' t work on [employer]. Has roommates. Allergies Allergen Reactions Morphine Anaphylaxis [...] by physician. Concentration is 150mg/mL. Compounded by [facility] ) KETOROLAC IM Inject into the [...] SOLUTION Take as directed by [facility] Digestive Health- 2 gallon bowel [...] and summary of old medical records (source: [employer]), as summarized in the body of the [...] to send me a mess age via Pimovation to request referrals to acupuncture and massage [...] by Sonia Key. Alex Sanchez MD PhD Mangle Tender Cloth Anesthesiology and Pain Management [facility] & [facility] documented in t his encounter [...]
--- OUTSIDE RECORDS SUMMARY | ~2020-06-02 | XMS | Encounter Summary ---
Demographics + + + | Address | [address] | | | [place] [address] | + + + | Home Phone [...] Team Providers + +------+ + | Care Chronic Care Nurse Name | Role | Phone | + +------+ + | Justo Vazquez MD | PCP | | + +------+ + Encounter Details +--------+ + + + + | Date | Type | Department | Care Team | Description | +--------+ + + + + | 04/23/ | Anesthesia | Pain Center at [facility] | Aleta Rebollar MD 6535 | | | 2019 | Event | [address] | [address] | | | | | [place] [facility] | [place], [place] | | | | | and Healing, | [address] | | | | | | [phone] | | | | | Floor [place], [place] | | | | | | [address] | | | | | | [phone] | | | +--------+ + + + [...]
--- OUTSIDE RECORDS SUMMARY | ~2020-06-02 | XMS | Encounter Summary ---
Demographics + + + | Address | [address] | | | [place] [address] | + + + | Home Phone [...] Team Providers + +------+ + | Care Webbing Supervisor Name | Role | Phone | [...] | pain, | [address] | [address] | | | | | unspecified | [address] | [address] | | | | | abdominal | Rd | [place], [place] | | | | | location | [facility] [place] | [address] | | | | | Pain of | [address] | Phone: | | | | | upper | | [phone] | | | | | abdomen | | Fax: | | | | | Complex | | [phone] | | | | | regional | [...] | | | | | | | WINDER FIXER | | | +--------+---------+ + + + + Reason for Visit + + + | Reason | Comments | + + + | Procedure | | + + + Encounter Details +--------+ + + + + | Date | Type | Department | Care Team | Description | +--------+ + + + + | 08/30/ | Telephone | [facility] | Ilene Bright, | Procedure | | 2017 | | Pain Center at | FREIGHT BRAKE OPERATOR [address] | | | | | [facility] | [place], [place] | | | | | [address] | [address] | | | | | [facility] | [phone] | | | | | and Healing, | | | | | | Building | | | | | | Floor [place], [place] | | | | | | [address] | | | | | | [phone] | | | +--------+ + + + [...]
--- OUTSIDE RECORDS SUMMARY | ~2020-06-02 | XMS | Encounter Summary ---
Demographics + + + | Address | [address] | | | [place] [address] | + + + | Home Phone [...] Team Providers + +------+ + | Care Vocational Counselor Name | Role | Phone | [...] | | | | | syndrome | [facility] | | | | | type 1 of | Rd | Rd [place], | | | | | left lower | [facility], [place] | [place] | | | | | extremity | [address] | [address] | | | | | Procedures | Phone: | Phone: | | | | | REQUEST TO | [phone] | [phone] | | | | | SURGERY | Fax: | Fax: | | | | | BOX SEALING MACHINE CATCHER | [phone] | [phone] | +--------+---------+ + + + + Physical [...] | | | | regional | ,PhD 9451 | OTPTRehab | | | | | pain | [facility] | 1425 | | | | | syndrome | [facility] | [place] | | | | | type 1 of | Rd | [place] | | | | | left lower | [place], [place] | [address] | | | | | extremity | [address] | Phone: | | | | | Procedures | Phone: | [phone] | | | | | PHYSICAL | [phone] | Fax: | | | | | THERAPY | Fax: | [phone] | | | | | REFERRAL | [phone] | | +--------+--------+ + + + + [...] | | | | | Procedures | [place], [place] | Rd [place], | | | | | CONSULT TO | [address] | [place] | | | | | PAIN | | [address] | | | | | MANAGEMENT | | Phone: | | | | | | | [phone] | | | | | | | Fax: | | | | | | | [phone] | +--------+--------+ + + + + Encounter Details +--------+---------+ + + + | Date | Type | Department | Care Team | Description | +--------+---------+ + + + | 06/12/ | Office | [facility] Comprehensive | Alex Sanchez, | Complex regional | | 2018 | Visit | Pain Center at | ,PhD [address] [facility] | pain syndrome type 1 | | | | [facility] | [facility] [address] | of left lower | | | | [address] | [place], [place] | extremity (Primary | | | | Center for Health | [address] | Dx) | | | | and Healing, | [phone] | | | | | | | | | | | Floor [place], [place] | | | | | | [address] | | | | | | [phone] | | | +--------+---------+ + + + [...] in the future, please contact me via Dualog to request an order to schedule. The procedure you discussed with your doctor is called: SCS DRG TRIAL LUMBAR [facility]. Please make sure this is scheduled with the Inside Contractor Sales. PRE-PROCEDURE INSTRUCTIONS 1. Please bring a bung driver with you as we may give you medications that impair your ability to drive. This is necessary even if you do not receive sedation. You may take a taxi or ri [employer] if you are accompanied by a responsible [...] your procedure, please contact [facility] to cl arify your instructions. The phone number for questions or concerns is [phone]. documented in this encounter Progress Notes Holly [...] MD,P hD - 06/12/2018 10:00 AM PDT [facility] Return Visit Date: 06/12/2018 Chief Complaint Patient presents with Pain in left leg History of Present Illness: Tracie Farah is a 28 year old female, whose last appoi ntment at the [facility] was May [...] that this mildly agitated her neck pain. DATE NIGHT CAREGIVER Brief Pain Inventory: (ten= worst possible pain [...] Trial spinal cord stimulator leads 08/02/2012 [facility], Surgeon: Janak Riojas MD [...] History Social History Narrative Single. Goes to [employer] with a light load. Has been working at [employer], can' t work on [employer]. Has roommates. Allergies Allergen Reactions Morphine Anaphylaxis [...] by physician. Concentration is 150mg/mL. Compounded by [facility] ) KETOROLAC IM Inject into the [...] and summary of old medical records (source: [employer]), as summarized in the body of the [...] to send me a mess age via Dualog to request referrals to acupuncture and massage [...] by Sonia Key. Alex Sanchez MD PhD Novelty Chain Maker Anesthesiology and Pain Management [facility] & [facility] documented in t his encounter Plan of [...]
--- OUTSIDE RECORDS SUMMARY | ~2020-06-02 | XMS | Encounter Summary ---
Demographics + + + | Address | [address] | | | [place] [address] | + + + | Home Phone [...] Providers + +------+ + | Care Industrial Maintenance Technician Name | Role | Phone | + +------+ + | Justo Vazquez MD | PCP | | + +------+ + Encounter Details +--------+ + + + + | Date | Type | Department | Care Team | Description | +--------+ + + + + | 10/20/ | Telephone | [facility] | Ilene Bright, | | | 2017 | | Pain Center at | HOT METAL CHARGER [address] | | | | | [facility] | [place], [place] | | | | | [address] | [address] | | | | | [place] for [facility] | [phone] | | | | | and Healing, | | | | | | | | | | | | Floor [place], [place] | | | | | | [address] | | | | | | [phone] | | | +--------+ + + + [...]
--- OUTSIDE RECORDS SUMMARY | ~2020-06-02 | XMS | Encounter Summary ---
Demographics + + + | Address | [address] | | | [place] [address] | + + + | Home Phone [...] +------+ + | Care Vice President Of Recruiting Name | Role | Phone | + +------+ + | Justo Vazquez MD | PCP | | + +------+ + Encounter Details +--------+ + + + + | Date | Type | Department | Care Team | Description | +--------+ + + + + | 12/07/ | Street Inspector | [facility] at [facility] | Ava Carbajal | | | 2016 | | [address] Katy Torres MD | | | | | [address] [facility] for | | | | | | Health and Healing, | | | | | | Building 2 | | | | | | [place], [place] | | | | | | [address] | | | | | | [phone] | | | +--------+ + + + [...]
--- OUTSIDE RECORDS SUMMARY | ~2020-06-02 | XMS | Encounter Summary ---
Demographics + + + | Address | [address] | | | [place] [address] | + + + | Home Phone [...] Team Providers + +------+ + | Care Vendor Quality Supervisor Name | Role | Phone | + +------+ + | Justo Vazquez MD | PCP | | + +------+ + Encounter Details +--------+ + + + + | Date | Type | Department | Care Team | Description | +--------+ + + + + | 01/12/ | Telephone | [facility] | Kenny Gaspar MD | | | 2016 | | [place] [address] [address] | | | | | | [address] [facility] | | | | | | for Health and | | | | | | [facility], Building 2 | | | | | | [place], [place] | | | | | | [address] | | | | | | [phone] | | | +--------+ + + + [...]
--- OUTSIDE RECORDS SUMMARY | ~2020-06-02 | XMS | Encounter Summary ---
Demographics + + + | Address | [address] | | | [place] [address] | + + + | Home Phone [...] Providers + +------+ + | Care Certified Ophthalmic Technologist Name | Role | Phone | [...] | | | | regional | ,PhD [address]11 | | | | | | pain | [address] | | | | | | syndrome | [address] | | | | | | type 1 of | Rd | | | | | | left lower | [place], [place] | | | | | | extremity | [address] | | | | | | Procedures | Phone: | | | | | | CONSULT TO | [phone] | | | | | | ORTHOPEDICS | Fax: | | | | | | AND | [phone] | | | | | | REHABILITATI | | | | | | | ON | | | +--------+--------+ + + + + Encounter Details +--------+ + + + + | Date | Type | Department | Care Team | Description | +--------+ + + + + | 06/08/ | Marketer | [facility] Comprehensive | Alex Sanchez, | Complex regional | | 2019 | | Pain Center at | ,PhD [address] [facility] | pain syndrome type 1 | | | | [facility] | [facility] [address] | of left lower | | | | [address] | [place], [place] | extremity (Primary | | | | Center for Health | [address] | Dx) | | | | and Healing, | [phone] | | | | | | | | | | | Floor [place], [place] | | | | | | [address] | | | | | | [phone] | | | +--------+ + + + [...]
--- OUTSIDE RECORDS SUMMARY | ~2020-06-02 | XMS | Encounter Summary ---
Demographics + + + | Address | [address] | | | [place] [address] | + + + | Home Phone [...] Providers + +------+ + | Care Mannequin Maker Name | Role | Phone | [...] | 2017 | | Center at [facility] [address] | | Review | | | | [facility] | | | | | | for Health and | | | | | | [facility], [facility] 2 | | | | | | [place], [place] | | | | | | [address] | | | | | | [phone] | | | +--------+ + + + [...]
--- OUTSIDE RECORDS SUMMARY | ~2020-06-02 | XMS | Encounter Summary ---
Demographics + + + | Address | [address] | | | [place] [address] | + + + | Home Phone [...] Providers + +------+ + | Care Digital Content Producer Name | Role | Phone | + +------+ + | Justo Vazquez MD | PCP | | + +------+ + Encounter Details +--------+ + + + + | Date | Type | Department | Care Team | Description | +--------+ + + + + | 03/23/ | MyChart | [facility] | Ilene Bright, | Welcome | | 2017 | Encounter | Pain Center at | ACCELERATOR SYSTEMS DIRECTOR [address] | | | | | [facility] | [place], [place] | | | | | [address] | [address] | | | | | [place] for [facility] | [phone] | | | | | and Healing, | | | | | | | | | | | | Floor [place], [place] | | | | | | [address] | | | | | | [phone] | | | +--------+ + + + [...]
--- OUTSIDE RECORDS SUMMARY | ~2020-06-02 | XMS | Encounter Summary ---
Demographics + + + | Address | [address] | | | [place] [address] | + + + | Home Phone [...] Team Providers + +------+ + | Care Aluminum Molder Name | Role | Phone | [...] | | 2017 | | Center at [facility] [address] | | Review | | | | [facility] | | | | | | for Health and | | | | | | [facility] 2 | | | | | | [place], [place] | | | | | | [address] | | | | | | [phone] | | | +--------+ + + + [...]
--- OUTSIDE RECORDS SUMMARY | ~2020-06-02 | XMS | Encounter Summary ---
Demographics + + + | Address | [address] | | | [place] [address] | + + + | Home Phone [...] Team Providers + +------+ + | Care In Store Marketing Representative Name | Role | Phone | [...] | (ortho question) | | | | [facility] | [facility] | | | | | [address] | [place], [place] | | | | | [facility] | [address] | | | | | and Healing, | [phone] | | | | | | | | | | | Floor [place], [place] | | | | | | [address] | | | | | | [phone] | | | +--------+ + + + [...]
--- OUTSIDE RECORDS SUMMARY | ~2020-06-02 | XMS | Encounter Summary ---
Demographics + + + | Address | [address] | | | [place] [address] | + + + | Home Phone [...] | CRPS | Janak Martinez MD | [facility] [address] | | | | | (complex | [address] | Pavilion | | | | | regional | [address] | [address] | | | | | pain | [facility] | [address], | | | | | syndrome), | [address] | Basement | | | | | lower limb | [place], [place] | [place], [place] | | | | | Procedures | [address] | [address] | | | | | [place] BONE &/[place] | Phone: | Phone: | | | | | JOINT | [phone] | [phone] | | | | | IMAGING 3 | Fax: | Fax: | | | | | PHASE | [phone] | [phone] | +--------+--------+ + + + + Encounter Details +--------+ + + + + | Date | Type | Department | Care Team | Description | +--------+ + + + + | 02/13/ | Hospital | Nuclear Medicine | | | | 2011 | Encounter | at [facility] [address] | | | | | | [address] | | | | | | [address], | | | | | | [place], | | | | | | [place] [address] | | | | | | [phone] | | | +--------+ + + + [...]
--- OUTSIDE RECORDS SUMMARY | ~2020-06-02 | XMS | Encounter Summary ---
Demographics + + + | Address | [address] | | | [place] [address] | + + + | Home Phone [...] + + | 10/06/ | Telephone | [facility] Comprehensive | Yosef Kenney MD | Dermatitis | | 2018 | | Pain Center at | [address] | | | | | [facility] | [facility] | | | | | [address] | [place] [address] | | | | | [facility] | [phone] | | | | | and Healing, | | | | | | [facility] [address] | | | | | | [place], [place] | | | | | | [address] | | | | | | [phone] | | | +--------+ + + + [...]
--- OUTSIDE RECORDS SUMMARY | ~2020-06-02 | XMS | Encounter Summary ---
Demographics + + + | Address | [address] | | | [place] [address] | + + + | Home Phone [...] Team Providers + +------+ + | Care Nitroglycerin Neutralizer Name | Role | Phone | + [...] ogy | | Ava Torres, | [address] | | | | | Constipation | [address] | [address] | | | | | , | [address] | [place] for | | | | | unspecified | [address] | Health and | | | | | constipation | [facility] [place] | Healing, | | | | | type | [address] | Building [address] | | | | | Procedures | | [place], [place] | | | | | CONSULT TO | | [address] | | | | | GI PROCEDURE | | Phone: | | | | | UNIT: | | [phone] | | | | | ANORECTAL | | Fax: | | | | | MANOMETRY | | [phone] | | | | | [place] ANAL | | | | | | | PRESSURE | | | | | | | RECORD | | | +--------+--------+ + + + + Encounter Details +--------+ + + + + | Date | Type | Department | Care Team | Description | +--------+ + + + + | 09/14/ | Hospital | [facility] | Nurse, Gip [address] | | | 2016 | Encounter | [address] | [facility] | | | | | [facility] for | Road [place], [place] | | | | | Health and Healing, | [address] | | | | | Building 2 | | | | | | [place], [place] | | | | | | [address] | | | | | | [phone] | | | +--------+ + + + [...]
--- OUTSIDE RECORDS SUMMARY | ~2020-06-02 | XMS | Encounter Summary ---
Demographics + + + | Address | [address] | | | [place] [address] | + + + | Home Phone [...] Team Providers + +------+ + | Care Mailing Specialist Name | Role | Phone | [...] Rd | | | | | | [place], [place] | | | | | | [address] | | | +--------+ + + + [...]
--- OUTSIDE RECORDS SUMMARY | ~2020-06-02 | XMS | Encounter Summary ---
Demographics + + + | Address | [address] | | | [place] [address] | + + + | Home Phone [...] | Organization | [facility] | | | and [place] [...] [place] | | | | | [address] | | + + + + + | Bryant Farah | ERICKA | Unknown | | + + + + + Care Team Providers + +------+ + | Care Yam Curer Name | Role | Phone | + +------+ + PCP | Unavailable | + +------+ + Encounter Details +--------+ + + + + | Date | Type | Department | Care Team | Description | +--------+ + + + + | 09/12/ | Hospital | [facility] | | | | 2008 | Encounter | [facility] | | | | | | CENTER [address] | | | | | | [place], [place] | | | | | | [address] | | | | | | [phone] | | | +--------+ + + + [...]
--- OUTSIDE RECORDS SUMMARY | ~2020-06-02 | XMS | Encounter Summary ---
Demographics + + + | Address | [address] | | | [place] [address] | + + + | Home Phone [...] Team Providers + +------+ + | Care Him Assistant Name | Role | Phone | [...] Oliveira | | 2011 | IP | [address] | | House - Approved | | | | [place], | | | | | | [place] [address] | | | +--------+ + + + [...]
--- OUTSIDE RECORDS SUMMARY | ~2020-06-02 | XMS | Encounter Summary ---
Demographics + + + | Address | [address] | | | [place] [address] | + + + | Home Phone [...] Providers + +------+ + | Care Carpenter Repair Name | Role | Phone | + [...] | | | | | unspecified | [facility] | [address] | | | | | location | Rd | [facility] | | | | | Procedures | [place], [place] | Rd [place], | | | | | CONSULT TO | [address] | [place] | | | | | PAIN | | [address] | | | | | MANAGEMENT | | Phone: | | | | | | | [phone] | | | | | | | Fax: | | | | | | | [phone] | +--------+--------+ + + + + Encounter Details +--------+---------+ + + + | Date | Type | Department | Care Team | Description | +--------+---------+ + + + | 05/08/ | Office | [facility] Comprehensive | Alex Sanchez, | Complex regional | | 2018 | Visit | Pain Center at | ,PhD [address] | pain syndrome type 1 | | | | [place] | [facility] [address] | of left lower | | | | [address] | [place], [place] | extremity (Primary | | | | [facility] | [address] | Dx); Pain of upper | | | | and Healing, | [phone] | abdomen; Intractable | | | | | | cyclical vomiting | | | | Floor [place], [place] | | with nausea; | | | | [address] | | Disturbance in sleep | | | | [phone] | | behavior; Abdominal | | | [...] MD,P hD - 05/08/2018 10:30 AM PDT [facility] Comprehensive Pain Center Return Visit Date: 05/08/2018 Chief Complaint Patient presents with Ankle pain Left Foot pain Left History of Present Illness: Tracie Farah is a 27 year old female, whose last appoi ntment at the [facility] was April 19, 2018, [...] time that 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 CHIROPRACTIC PHYSICIAN Brief Pain Inventory: (ten= worst possible pain [...] Hemroidectomy Trial spinal cord stimulator leads 08/02/2012 [facility], Surgeon: Janak Riojas MD Cholecystectomy [...] History Social History Narrative Single. Goes to [employer] college with a light load. Has been working at [employer], can' t work on [employer]. Has roommates. Allergies Allergen Reactions Morphine Anaphylaxis [...] by physician. Concentration is 150mg/mL. Compounded by [employer] ) KETOROLAC IM Inject into the muscle [...] and summary of old medical records (source: Fl[employer]), as summarized in the body of the [...] by Sonia Key. Alex Sanchez MD PhD Certified Endoscopy Technician Anesthesiology and Pain Management [facility] documented in this encounter Plan [...]
--- OUTSIDE RECORDS SUMMARY | ~2020-06-02 | XMS | Encounter Summary ---
Demographics + + + | Address | [address] | | | [place] [address] | + + + | Home Phone [...] Team Providers + +------+ + | Care Wet Char Conveyor Tender Name | Role | Phone | + +------+ + | Justo Vazquez MD | PCP | | + +------+ + Encounter Details +--------+ + + + + | Date | Type | Department | Care Team | Description | +--------+ + + + + | 09/25/ | Hospital | Radiology/Imaging | Aleta Rebollar MD 7682 | | | 2018 | Encounter | Lab at [facility] [address] | [address] | | | | | [address] [facility] for | [place], [place] | | | | | Health and Healing, | [address] | | | | | [address] | [phone] | | | | | Floor [place], [place] | | | | | | [address] | | | | | | [phone] | | | +--------+ + + + [...]
--- OUTSIDE RECORDS SUMMARY | ~2020-06-02 | XMS | Encounter Summary ---
Demographics + + + | Address | [address] | | | [place] [address] | + + + | Home Phone [...] Providers + +------+ + | Care Alternative Dispute Resolution Mediator Name | Role | Phone | [...] | Orthopedics | Diagnoses | Sdrulla, | Hetting[place], | | | | | Complex | Alex Alba, | Ranjeet Odom MD | | | | | regional | ,PhD [address] | [address] | | | | | pain | [address] | [address] | | | | | syndrome | [address] | [place], [place] | | | | | type 1 of | Rd | [address] | | | | | left lower | [place], [place] | Phone: | | | | | extremity | [address] | [phone] | | | | | Procedures | Phone: | Fax: | | | | | CONSULT TO | [phone] | [phone] | | | | | ORTHOPEDICS | Fax: | | | | | | AND | [phone] | | | | | | REHABILITATI [...] | ankle results) | | | | [facility] | [address] | | | | | [address] | [place], [place] | | | | | [facility] | [address] | | | | | and Healing, | [phone] | | | | | | | | | | | Floor [place], [place] | | | | | | [address] | | | | | | [phone] | | | +--------+ + + + [...]
--- OUTSIDE RECORDS SUMMARY | ~2020-06-02 | XMS | Encounter Summary ---
Demographics + + + | Address | [address] | | | [place] [address] | + + + | Home Phone [...] Providers + +------+ + | Care Marketing Communications Specialist Name | Role | Phone | [...] 2016 | | Pain Center at | BUDGET ANALYST [address] | | | | | [facility] | [place], [place] | | | | | [address] | [address] | | | | | [facility] | [phone] | | | | | and Healing, | | | | | | [facility] | | | | | | [place], [place] | | | | | | [address] | | | | | | [phone] | | | +--------+ + + + [...]
--- OUTSIDE RECORDS SUMMARY | ~2020-06-02 | XMS | Encounter Summary ---
Demographics + + + | Address | [address] | | | [place] [address] | + + + | Home Phone [...] Providers + +------+ + | Care Air Drill Operator Name | Role | Phone | [...] + | 08/08/ | Emergency | [facility] Emergency | Mable Villarreal MD | | | 2015 | | Department [address] | [address] [facility] | | | | | [address] | [address] | | | | | [facility] | [place], [place] | | | | | [place] | [address] | | | | | [address] | [phone] | | | | | [phone] | | | | | | | [...] about "Gastroparesis: Care Instructions", log into your Leaderz account at [email or web address]. You can enter M106 in the Kineta" search box. Not on Leaderz? Review the Leaderz section of your After Visit Summary for directions on ho w to sign up. [id number] [employer]. Care instructions adapted under license by [facility] [employer] [place]. This care instruction is for use with your licensed healthcar e professional. If you have questions about a medical condition or this instruction, always ask your healthcare professional. [employer] disclaims any warranty or liabili ty for your use of this information. Content Version: 11.0.505476; Current as of: October 03, 2015 documented [...] | + + + + + | [facility] | [address] | [place] [address] | | | SERVICES, CORE | GUILLERMO [...] DEPT OF | [address] | [place], [place] | | | CARDIOLOGY | [address] | [address] | | + + + + + [...] | [facility] | [address] | [place] [address] | | | SERVICES, CORE | PARK [...] [facility] | [address] | [place] [address] | | | SERVICES, LILLIAN | GUILLERMO [...] KEVIN SHAH | [address] | [place] [address] | | | SERVICES, CORE | PARK [...] | + + + + + | [facility] | [address] | [place] [address] | | | [facility] | [address] | | | + [...] organisms may result in clinically misleading | [facility] | | information due to the low numbers and /or mixture of organisms | | | present. Recollection is suggested if clinically indicated. | | + + + + + + + + | Performing | Address | City/State/Zipcode | Phone Number | | Organization | | | | + + + + + | [facility] | [address] | [place] [address] | | | [place] | | | | + + + [...] [facility] | [address] | [place] [address] | | | SERVICES, CORE | PARK [...] | [facility] | [address] | [place] [address] | | | SERVICES, CORE | PARK [...] | 152 - 353 U/L | [facility] | | | (LAB) | | | [...] | + + + + + | [facility] | [address] | [place] [address] | | | SERVICES, CORE | [address] [...] | + + + + + | [facility] | [address] | [place] [address] | | | SERVICES, CORE | [address] | | | + + + + + ED INFORMATION EXCHANGE (08/08/2016 12:21 PM PDT) + + + + + + | Component | Value | Ref Range | Performed | Pathologist | | | | | At | Signature | + + + + + + | [facility] | [id number] | | COLLECTIVE | | | | [id number] | | MEDICAL | | | | [...] ------- ---- | | | 08/08/2016 12:21 [facility] and | | | [facility] [place] [address]. abd pain | | | 08/04/2016 03:50 [facility] | | | [place] Emergency ABD PAIN,VOMITING 06/26/2016 22:44 | | | [facility] [place] | | | Emergency -Acquired absence of other specified parts of | | | | | | digestive | | | tract | | | | | | -Gastroparesis | | | | | | -Unspecified abdominal pain | | | | | | -Gastro-esophageal reflux disease without | | | esophagitis | | | | | | -Other continuous churn buttermaker (current) drug therapy 06/22/2016 17:35 | | [facility] [place] [facility] | | Emergency -abd pain, "I have gastroparesis", since , seen | | | | | | at St | | | [facility] yesterday. has been to the er | | | | | | several times | | | | | | -Abdominal Pain | | | | | | -Gastroparesis 06/19/2016 | | | 04:51 [facility] [place] | | | [place] Emergency -Gastroparesis | | | | | | -Unspecified abdominal pain | | | | | | -Other continuous churn buttermaker | | | (current) drug therapy | | | | | | -Acquired absence of other specified parts of | | | | | | digestive tract | | | 06/18/2016 07:18 [facility] | | | [place] Emergency [...] Location ------ --------- 1 | | | [facility] 1 | | | [facility] 8 [facility] 10 | | | Total Note: Visits [...] COLLECTIVE MEDICAL | [address] | [place], [place] | [phone] | | TECHNOLOGIES | [address] | [address] | | + + + + + [...]
--- OUTSIDE RECORDS SUMMARY | ~2020-06-02 | XMS | Clinical Summary ---
Demographics + + + | Address | [address] | | | [place] [address] | + + + | Home Phone | | + + + | Preferred Language | Unknown | + + + | Marital Status | Single | + + + | Religion Affiliation | 1073 | + + + | Race | Unknown | + + + | Ethnic Group | Unknown | + + + Author + + + | Author | [facility] | | | and [place] | + + + | Organization | [facility] | | | and [place] [...] | [place] | | | | | [address] | | + + + + + | Bryant Farah | ECON | Unknown | | + + + + + Care Team Providers + +------+ + | Care Tester Sound Name | Role | Phone | + [...] +--------+ +---------+--------+ | MEDICARE | MEDICA | [id number] | 07/15/20 | [phone] | | Medica | | | RE | | 15-Pre | 5 | | re | | | PART A | | sent | | | | | | AND B | | | | | | + +--------+ +--------+ +---------+--------+ | MEDICAID [place] | MEDICA | [id number] | | [phone] | | Medica | [...] | 1989 | [phone] | [place] [address] | | | evita | | | 6 (Home) | | + +--------+ +--------+ + +"
--- OUTSIDE RECORDS SUMMARY | ~2020-06-02 | XMS | Encounter Summary ---
Demographics + + + | Address | [address] | | | [place] [address] | + + + | Home Phone [...] Team Providers + +------+ + | Care Networking Specialist Name | Role | Phone | [...] | | | | | [address] | | | | | | [address] | | | | | | [place], | | | | | | [address] [place] [address], | | | | | | [place] [address] | | | | | | [phone] | | | +--------+ + + + [...]
--- OUTSIDE RECORDS SUMMARY | ~2020-06-02 | XMS | Encounter Summary ---
Demographics + + + | Address | [address] | | | [place] [address] | + + + | Home Phone [...] Providers + +------+ + | Care Automotive Parts Interpreter Name | Role | Phone | [...] | Request (ketamine) | | | | [facility] | [address] | | | | | [address] | [place], [place] | | | | | [facility] | [address] | | | | | and Healing, | [phone] | | | | | | | | | | | Floor [place], [place] | | | | | | [address] | | | | | | [phone] | | | +--------+ + + + [...]
--- OUTSIDE RECORDS SUMMARY | ~2020-06-02 | XMS | Encounter Summary ---
Demographics + + + | Address | [address] | | | [place] [address] | + + + | Home Phone [...] Team Providers + +------+ + | Care Showroom Executive Director Name | Role | Phone | [...] Diagnoses | Beulah | Edu Pt Boat Cleaner | | | | Therapy | CRPS | Janak Martinez MD | [address] | | | | | (complex | [address] | | | | | regional | [address] | Mailcode: | | | | | pain | Mailstop | [facility] | | | | | syndrome), | 160[address] | for Health | | | | | lower limb | [place], [place] | and Healing, | | | | | Gait | [address] | [address] | | | | | disturbance | Phone: | [place], [place] | | | | | Muscle pain | [phone] | [address] | | | | | Procedures | Fax: | Phone: | | | | | PHYSICAL | [phone] | [phone] | | | | | THERAPY | | | | | | | REFERRAL | | | +--------+--------+ + + + + Encounter Details +--------+---------+ + + + | Date | Type | Department | Care Team | Description | +--------+---------+ + + + | 06/09/ | Office | [facility] | Guillermo Saonn I, | CRPS (complex | | 2011 | Visit | Therapy Services at | PT [address] | regional pain | | | | [facility] | [place] [address] | syndrome), lower | | | | [address] | [phone] | limb (Primary Dx) | | | | [facility] | | | | | | and Healing, | | | | | | Building 1, 1st | | | | | | Floor [place], [place] | | | | | | [address] | | | | | | [phone] | | | +--------+---------+ + + + [...] might be different f rom the original. [id number] BRODY FARAH Date of : 1990 Start of care: 02/14/2012 Date of onset: 02/14/2012 Referring/Attending Practitioner: Janak Riojas MD . Primary/Referral Diagnosis/ICD-9: 355.71B CRPS (complex regional pain syndrome), lower limb Insurance: Payor: [facility] Plan: BCBS OUT OF STATE [...] any change in their status. Guillermo Sanon [facility] Out[facility] Rehabilitation Services Mailcode: Ch3p [address] [facility], 1st Floor [facility] [address] documented in this encounter Plan [...]
--- OUTSIDE RECORDS SUMMARY | ~2020-06-02 | XMS | Encounter Summary ---
Demographics + + + | Address | [address] | | | [place] [address] [...] Team Providers + +------+ + | Care Orderlies Teacher Name | Role | Phone | + +------+ + | Justo Vazquez MD | PCP | | + +------+ + Encounter Details +--------+ + + + + | Date | Type | Department | Care Team | Description | +--------+ + + + + | 03/11/ | Telephone | [facility] | Zeeshan Mahoney MD | | | 2019 | | Pain Center at | [address] | | | | | [facility] | [facility], | | | | | [address] | [place] [address] | | | | | [place] for [facility] | [phone] | | | | | and Healing, | | | | | | | | | | | | [place], [place] | | | | | | [address] | | | | | | [phone] | | | +--------+ + + + [...]
--- OUTSIDE RECORDS SUMMARY | ~2020-06-02 | XMS | Encounter Summary ---
Demographics + + + | Address | [address] | | | [place] [address] | + + + | Home Phone [...] Team Providers + +------+ + | Care Flying Squad Worker Name | Role | Phone | + +------+ + | Justo Vazquez MD | PCP | | + +------+ + Encounter Details +--------+ + + + + | Date | Type | Department | Care Team | Description | +--------+ + + + + | 12/12/ | Telephone | [facility] | Alex Sanchez, | | | 2019 | | Pain Center at | ,PhD [address] | | | | | [facility] | [address] | | | | | [address] | [place], [place] | | | | | [place] for [facility] | [address] | | | | | and Healing, | [phone] | | | | | | | | | | | Floor [place], [place] | | | | | | [address] | | | | | | [phone] | | | +--------+ + + + [...]
--- OUTSIDE RECORDS SUMMARY | ~2020-06-02 | XMS | Encounter Summary ---
Demographics + + + | Address | [address] | | | [place] [address] | + + + | Home Phone [...] Team Providers + +------+ + | Care Suspect Artist Supervisor Name | Role | Phone | [...] Lab at [facility] [address] | ,PhD [address] [facility] | | | | | [facility] for | [facility] | | | | | Health and [facility], | [place], [place] | | | | | [place] [address] [facility] | [address] | | | | | Floor [place], [place] | [phone] | | | | | [address] | | | | | | [phone] | | | +--------+ + + + [...]
--- OUTSIDE RECORDS SUMMARY | ~2020-06-02 | XMS | Encounter Summary ---
Demographics + + + | Address | [address] | | | [place] [address] | + + + | Home Phone [...] Team Providers + +------+ + | Care Jacquard Loom Fixer Name | Role | Phone | + [...] + + | 09/15/ | Telephone | [facility] | Alex Sanchez, | Question | | 2018 | | Pain Center at | ,PhD [address] | | | | | [facility] | [address] | | | | | [address] | [place], [place] | | | | | [facility] | [address] | | | | | and [place], | [phone] | | | | | Building | | | | | | Floor [place], [place] | | | | | | [address] | | | | | | [phone] | | | +--------+ + + + [...]
--- OUTSIDE RECORDS SUMMARY | ~2020-06-02 | XMS | Encounter Summary ---
Demographics + + + | Address | [address] | | | [place] [address] | + + + | Home Phone [...] Providers + +------+ + | Care Product Marketing Intern Name | Role | Phone [...] | Orthopedics | Diagnoses | Sdrulla, | [place], | | | | | Complex | [place], | Ranjeet Odom MD | | | | | regional | ,PhD [address] | [address] | | | | | pain | [address] | [address] | | | | | syndrome | [address] | [place], [place] | | | | | type 1 of | Rd | [address] | | | | | left lower | [place], [place] | Phone: | | | | | extremity | [address] | [phone] | | | | | Procedures | Phone: | Fax: | | | | | CONSULT TO | [phone] | [phone] | | | | | ORTHOPEDICS | Fax: | | | | | | AND | [phone] | | | | | | REHABILITATI [...] | ankle results) | | | | [facility] | [facility] [address] | | | | | [address] | [place], [place] | | | | | [facility] | [address] | | | | | and Healing, | [phone] | | | | | | | | | | | Floor [place], [place] | | | | | | [address] | | | | | | [phone] | | | +--------+ + + + [...]
--- OUTSIDE RECORDS SUMMARY | ~2020-06-02 | XMS | Encounter Summary ---
Demographics + + + | Address | [address] | | | [place] [address] | + + + | Home Phone [...] Team Providers + +------+ + | Care Tinsel Machine Operator Name | Role | Phone [...] + + | 02/21/ | Telephone | [facility] | Alex Sancehz, | Medication Refill | | 2018 | | Pain Center at | ,PhD [address] | Request (ketamine- | | | | [facility] | [address] | mail script to | | | | [address] | [place], [place] | patient) | | | | [facility] | [address] | | | | | and Healing, | [phone] | | | | | | | | | | | Floor [place], [place] | | | | | | [address] | | | | | | [phone] | | | +--------+ + + + [...]
--- OUTSIDE RECORDS SUMMARY | ~2020-06-02 | XMS | Encounter Summary ---
Demographics + + + | Address | [address] | | | [place] [address] | + + + | Home Phone [...] Providers + +------+ + | Care Product Owner Name | Role | Phone | + [...] | | | regional | [place] | [address] | | | | | pain | FAMILY | Mailstop | | | | | syndrome), | MEDICINE P | [address] | | | | | lower limb | [address] | [place], [place] | | | | | Gait | [place], | [address] | | | | | disturbance | [place] [address] | Phone: | | | | | Muscle pain | Phone: | [phone] | | | | | Procedures | [phone] | Fax: | | | | | REQUEST TO | Fax: | [phone] | | | | | SURGERY | [phone] | | | | | | TAFFY PULLER | | | +--------+--------+ + + + + Encounter Details +--------+ + + + + | Date | Type | Department | Care Team | Description | +--------+ + + + + | 03/01/ | Procedure | Pain Center at [facility] | Dale Cantu, | Foot pain (left); | | 2011 | | [address] | [address] | Procedure | | | | Center for Health | [address] | | | | | and Healing, | [place], [place] | | | | | [facility] | [address] | | | | | Floor [place], [place] | [phone] | | | | | [address] | | | | | | [phone] | | | +--------+ + + + [...] migh t be different from the original. [facility] Patient Instructions - Post Interventional Procedure Date: 03/01/2012 Name: Tracie Farah Date of : 1990 Procedure Performed: LUMBAR SYMPATHETIC BLOCK. Procedure Provider: Dale Cantu If you have any problems you believe are associated with your procedure tonight, Please call the Hospital Foreign Banknote Teller, and ask for the Pain Management Consu ltant. If you have problems or questions between 9:00 am and 4:00 pm, Please call the [facility] Nurse Triage Line, . [...] to the larry ent. LAKEISHA HERRING MD [facility] documented in this encounter Progress Notes Dale Cantu MD - 03/01/2012 2:21 PM PDTI was present for the entire procedure (lumbar sympathetic block) and all bocanegra elements of this visit. I reviewed the documentation of the other LENS GRINDER providers and concur with Dr. Herring's findings. [...] benefit from multidisciplinary treatment. DALE CANTU MD Data Center Engineer, [facility] Linoleum Tile Layer, Pain Medicine Professor, Anesthesiology & Perioperative Medicine NAEiDiana scott RN - 03/01/2012 1:35 PM PDT PRE-SEDATION: Date: March 01, 2012 Tracie Farah [id number] 1990 ALLERGIES: Morphine Previous reaction to Sedation/Analgesia: MEDICATIONS: Current Outpatient Prescriptions Medication DULoxetine (CYMBALTA) 30 mg Oral Capsule, Delayed Release(E.C.) HYDROcodone-acetaminophen (NORCO) 10-325 mg Oral Tablet levonorgestrel (MIRENA) 20 mcg/24 hr Intrauterine IUD LORazepam 1 mg Oral Tablet promethazine 25 mg Oral Tablet Meets NPO Guidelines. IV ACCESS: IV in Place IV Start Time 99233, 22g, DRH BASELINE VS: See Sedation Flow Sheet. Tracie Farah [id number] 1990, presents to clinic for: Procedure: Lumbar [...] ml. 1344: Procedure complete. Pt returned to [facility] 1 per man in stable condiotion. IV [...] OPERATIVE NOTE Date: March 01, 2012 Location: [facility] Procedure Room Tracie Donaldson [facility] [id number] :1990, presents to clinic for: PROCEDURE: Lumbar sympathetic block LEVEL/LATERALITY: left L3 PRE-OPERATIVE DIAGNOSIS: 355.71B CRPS (complex regional pain syndrome), lower limb 719.46 Pain in joint, lower leg POST-OPERATIVE DIAGNOSIS: 355.71B CRPS (complex regional pain syndrome), lower limb 719.46 Pain in joint, lower leg ATTENDING PHYSICIAN: Dale Cantu RECEPTIONIST NURSE: Fellow Lakeisha Herring MD ANESTHESIA: sedation delivered [...] procedure, I had a PARQ discussion with Tarcie Farah, and she gave wr itten consent for procedure and sedation. Ms. Farah was escorted to the [facility] Procedure Ro om, where she was [...] compromise. Ms. Farah was transported to the [facility] Comprehensive Pain Center post-procedure recovery area [...] block. Images were saved, and sent to [facility]. Ms. Farah will have her next appointment [...] + +--------+ + + + | [place] INJECT NERV | Routin | 03/01/2012 | CRPS (complex | | | BLCK,PARAVERT | e | 2:20 PM | regional pain | | | SYMPATH | | PDT | syndrome), lower | | | | | | limb Pain in joint, | | | | | | lower leg | | + +--------+ + + + | [place] LOCM 100-199 | Routin | 03/01/2012 | CRPS (complex | | | MG/MLICON | e | 1:53 PM | regional pain | | | | | PDT | syndrome), lower | | | | | | limb Pain in joint, | | | | | | lower leg | | + +--------+ + + + | [place] INJ BUPIVACAINE | Routin | 03/01/2012 | [...]
--- OUTSIDE RECORDS SUMMARY | ~2020-06-02 | XMS | Encounter Summary ---
Demographics + + + | Address | [address] | | | [place] [address] | + + + | Home Phone [...] Providers + +------+ + | Care Centrifugal Separator Name | Role | Phone | + [...] | CRPS | Janak Martinez MD | [facility] [address] | | | | | (complex | [address] | Pavilion | | | | | regional | [address] | [address] | | | | | pain | Mailstop | [address], | | | | | syndrome), | [address] | Basement | | | | | lower limb | [place], [place] | [place], [place] | | | | | Procedures | [address] | [address] | | | | | [place] BONE &/[place] | Phone: | Phone: | | | | | JOINT | [phone] | [phone] | | | | | IMAGING 3 | Fax: | Fax: | | | | | PHASE | [phone] | [phone] | +--------+--------+ + + + + Encounter Details +--------+ + + + + | Date | Type | Department | Care Team | Description | +--------+ + + + + | 02/13/ | Hospital | Nuclear Medicine | | | | 2011 | Encounter | at [facility] [address] | | | | | | [address] | | | | | | [place], | | | | | | Narayan [place], | | | | | | [place] [address] | | | | | | [phone] | | | +--------+ + + + [...]
--- OUTSIDE RECORDS SUMMARY | ~2020-06-02 | XMS | Encounter Summary ---
Demographics + + + | Address | [address] | | | [place] [address] | + + + | Home Phone [...] Team Providers + +------+ + | Care Contact Center Rep Name | Role | Phone | [...] | | 2016 | | Center at [facility] [address] | MD Melissa | | | | | [address] | | | | | | for Health and | | | | | | Healing, Building [address] | | | | | | [place], [place] | | | | | | [address] | | | | | | [phone] | | | +--------+ + + + [...]
--- OUTSIDE RECORDS SUMMARY | ~2020-06-02 | XMS | Encounter Summary ---
Demographics + + + | Address | [address] | | | [place] [address] | + + + | Home Phone [...] +------+ + | Care Central Office Operator Name | Role | Phone | [...] | [facility] | [address] | | | | | [address] | [place], [place] | | | | | [place] for [facility] | [address] | | | | | and Healing, | [phone] | | | | | | | | | | | Floor [place], [place] | | | | | | [address] | | | | | | [phone] | | | +--------+ + + + [...]
--- OUTSIDE RECORDS SUMMARY | ~2020-06-02 | XMS | Encounter Summary ---
Demographics + + + | Address | [address] | | | [place] [address] | + + + | Home Phone [...] Providers + +------+ + | Care Pipe Line Repairer Name | Role | Phone | + +------+ + | Justo Vazquez MD | PCP | | + +------+ + Encounter Details +--------+------+ + + + | Date | Type | Department | Care Team | Description | +--------+------+ + + + | 04/23/ | Lab | Laboratory at [facility] | | Other chronic pain ; | | 2018 | | [address] | | Complex regional | | | | Center for [facility] | | pain syndrome type 1 | | | | and Healing, | | of left lower | | | | Building 2 | | extremity | | | | [place], [place] | | | | | | [address] | | | | | | [phone] | | | +--------+------+ + + + [...] LABORATORY | | Barbiturates >=200 ng/mL | [facility] | | Benzodiazepine >=200 ng/mL Cocaine | [...] | KEVIN SHAH | [address] | [place] [address] | | | SERVICES, LILLIAN | GUILLERMO [...]
--- OUTSIDE RECORDS SUMMARY | ~2020-06-02 | XMS | Encounter Summary ---
Demographics + + + | Address | [address] | | | [place] [address] | + + + | Home Phone [...] Providers + +------+ + | Care Paint Mixer Hand Name | Role | Phone | [...] Rd | | | | | | [place], [place] | | | | | | [address] | | | +--------+ + + + [...]
--- OUTSIDE RECORDS SUMMARY | ~2020-06-02 | XMS | Encounter Summary ---
Demographics + + + | Address | [address] | | | [place] [address] | + + + | Home Phone [...] Team Providers + +------+ + | Care Daycare Director Name | Role | Phone | + +------+ + | Justo Vazquez MD | PCP | | + +------+ + Encounter Details +--------+ + + + + | Date | Type | Department | Care Team | Description | +--------+ + + + + | 06/07/ | Telephone | [facility] | Alex Sanchez, | | | 2019 | | Pain Center at | ,PhD [address] | | | | | [facility] | [address] | | | | | [address] | [place], [place] | | | | | [place] for [facility] | [address] | | | | | and Healing, | [phone] | | | | | | | | | | | Floor [place], [place] | | | | | | [address] | | | | | | [phone] | | | +--------+ + + + [...]
--- OUTSIDE RECORDS SUMMARY | ~2020-06-02 | XMS | Encounter Summary ---
Demographics + + + | Address | [address] | | | [place] [address] | + + + | Home Phone [...] Providers + +------+ + | Care Greens Tier Name | Role | Phone | + +------+ + | Justo Vazquez MD | PCP | | + +------+ + Encounter Details +--------+ + + + + | Date | Type | Department | Care Team | Description | +--------+ + + + + | 07/28/ | Documentati | [facility] Comprehensive | Ilene Bright, | | | 2017 | on | Pain Center at | FISHING VESSEL DECKHAND [address] | | | | | [facility] | [facility] [place] | | | | | [address] | [address] | | | | | [place] for [facility] | [phone] | | | | | and Healing, | | | | | | | | | | | | Floor [place], [place] | | | | | | [address] | | | | | | [phone] | | | +--------+ + + + [...]
--- OUTSIDE RECORDS SUMMARY | ~2020-06-02 | XMS | Encounter Summary ---
Demographics + + + | Address | [address] | | | [place] [address] | + + + | Home Phone [...] +------+ + | Care Sulfuric Acid Plant Operator Name | Role | Phone [...] + + | 06/07/ | Telephone | [facility] Ilene | [place]ene Bright, | Care Coordination | | 2016 | | Pain Center at | AFTER SCHOOL PROGRAM ASSISTANT [address] | | | | | [facility] | [place], [place] | | | | | [address] | [address] | | | | | [facility] | [phone] | | | | | and Healing, | | | | | | Building , | | | | | | Floor [place], [place] | | | | | | [address] | | | | | | [phone] | | | +--------+ + + + [...]
--- OUTSIDE RECORDS SUMMARY | ~2020-06-02 | XMS | Encounter Summary ---
Demographics + + + | Address | [address] | | | [place] [address] | + + + | Home Phone [...] Team Providers + +------+ + | Care Integrative Medicine Physician Name | Role | Phone [...] 2019 | | Pain Center at | HOME SERVICE TECHNICIAN [address] | | | | | [facility] | [place], [place] | | | | | [address] | [address] | | | | | [place] for [facility] | [phone] | | | | | and Healing, | | | | | | | | | | | | Floor [place], [place] | | | | | | [address] | | | | | | [phone] | | | +--------+ + + + [...]
--- OUTSIDE RECORDS SUMMARY | ~2020-06-02 | XMS | Encounter Summary ---
Demographics + + + | Address | [address] | | | [place] [address] | + + + | Home Phone [...] Team Providers + +------+ + | Care Neurodiagnostic Tech Name | Role | Phone | + +------+ + | Justo Vazquez MD | PCP | | + +------+ + Encounter Details +--------+ + + + + | Date | Type | Department | Care Team | Description | +--------+ + + + + | 09/20/ | Telephone | [facility] | Ilene Bright, | | | 2017 | | Pain Center at | ARMAMENT INSTALLER [address] | | | | | [place] | [place], [place] | | | | | [address] | [address] | | | | | [place] for [facility] | [phone] | | | | | and Healing, | | | | | | | | | | | | Floor [place], [place] | | | | | | [address] | | | | | | [phone] | | | +--------+ + + + [...]
--- OUTSIDE RECORDS SUMMARY | ~2020-06-02 | XMS | Encounter Summary ---
Demographics + + + | Address | [address] | | | [place] [address] | + + + | Home Phone [...] Providers + +------+ + | Care Wood Turner Name | Role | Phone | + [...] Oliveira | | 2011 | IP | [address] | | House - Approved | | | | [place]iana Maldonado [place], | | | | | | [place] [address] | | | +--------+ + + + [...]
--- OUTSIDE RECORDS SUMMARY | ~2020-06-02 | XMS | Encounter Summary ---
Demographics + + + | Address | [address] | | | [place] [address] | + + + | Home Phone [...] Providers + +------+ + | Care Elevator Constructor Electric Name | Role | Phone | + +------+ + | Justo Vazquez MD | PCP | | + +------+ + Encounter Details +--------+ + + + + | Date | Type | Department | Care Team | Description | +--------+ + + + + | 08/07/ | Telephone | [facility] | Alex Sanchez, | | | 2019 | | Pain Center at | ,PhD [address] | | | | | [facility] | [address] | | | | | [address] | [place], [place] | | | | | [place] for [facility] | [address] | | | | | and Healing, | [phone] | | | | | | | | | | | Floor [place], [place] | | | | | | [address] | | | | | | [phone] | | | +--------+ + + + [...]
--- OUTSIDE RECORDS SUMMARY | ~2020-06-02 | XMS | Encounter Summary ---
Demographics + + + | Address | [address] | | | [place] [address] | + + + | Home Phone [...] Team Providers + +------+ + | Care Press Operator Carbon Blocks Name | Role | Phone | + [...] | | Complex | Alex [place], | [facility] [address] | | | | | regional | ,PhD [address] | Pavilion | | | | | pain | [address] | [address] | | | | | syndrome | [address] | [address], | | | | | type 1 of | Rd | Basement | | | | | left lower | [place], [place] | [place], [place] | | | | | extremity | [address] | [address] | | | | | Muscle pain | Phone: | Phone: | | | | | Procedures | [phone] | [phone] | | | | | [place] BONE | Fax: | Fax: | | | | | &/OR JOINT | [phone] | [phone] | | | | | IMAGING | [...] + + | 12/27/ | Ancillary | [facility] Comprehensive | Alex Sanchez, | | | 2018 | Orders | Pain Center at | ,PhD [address] [facility] | | | | | [facility] | [address] | | | | | [address] | [place], [place] | | | | | [facility] | [address] | | | | | and [place], | [phone] | | | | | [facility] | | | | | | Floor [place], [place] | | | | | | [address] | | | | | | [phone] | | | +--------+ + + + [...] Note | + + | Service Account, [employer] Res In Interface - 12/28/2017 11:43 AM [...]
--- OUTSIDE RECORDS SUMMARY | ~2020-06-02 | XMS | Encounter Summary ---
Demographics + + + | Address | [address] | | | [place] [address] | + + + | Home Phone [...] Providers + +------+ + | Care Dry House Operator Name | Role | Phone | [...] | | Pain Center at | ,PhD [address] [facility] | follow-up | | | | [facility] | [address] | | | | | [address] | [place], [place] | | | | | [facility] | [address] | | | | | and [place], | [phone] | | | | | Building | | | | | | Floor [place], [place] | | | | | | [address] | | | | | | [phone] | | | +--------+ + + + [...]
--- OUTSIDE RECORDS SUMMARY | ~2020-06-02 | XMS | Encounter Summary ---
Demographics + + + | Address | [address] | | | [place] [address] | + + + | Home Phone [...] Team Providers + +------+ + | Care Houseperson Name | Role | Phone | + +------+ + | Allegra Chaudhary | PCP | | + +------+ + Encounter Details +--------+ + + + + | Date | Type | Department | Care Team | Description | +--------+ + + + + | 10/21/ | Telephone | [facility] | Antony Beltre, | | | 2014 | | [place] [address] [address] | [address] | | | | | [address] [place] | [place] [address] | | | | | for Health and | [phone] | | | | | [facility] 2 | | | | | | [place], [place] | | | | | | [address] | | | | | | [phone] | | | +--------+ + + + [...]
--- OUTSIDE RECORDS SUMMARY | ~2020-06-02 | XMS | Encounter Summary ---
Demographics + + + | Address | [address] | | | [place] [address] | + + + | Home Phone [...] Providers + +------+ + | Care Meter Changes Records Clerk Name | Role | Phone | [...] | | | | | extremity | [address] | [address] | | | | | Procedures | Phone: | Phone: | | | | | REQUEST TO | [phone] | [phone] | | | | | SURGERY | Fax: | Fax: | | | | | FRENCH DRAWER | [phone] | [phone] | +--------+---------+ + + + + Reason [...] | | | | | Procedures | [place], [place] | [place], | | | | | CONSULT TO | [address] | [place] | | | | | PAIN | | [address] | | | | | MANAGEMENT | | Phone: | | | | | | | [phone] | | | | | | | Fax: | | | | | | | [phone] | +--------+--------+ + + + + Encounter Details +--------+---------+ + + + | Date | Type | Department | Care Team | Description | +--------+---------+ + + + | 10/09/ | Office | [facility] | Alex Sanchez, | Complex regional | | 2018 | Visit | Pain Center at | ,PhD [address] | pain syndrome type 1 | | | | [facility] | [address] | of left lower | | | | [address] | [place], [place] | extremity (Primary | | | | [place] for [facility] | [address] | Dx) | | | | and Healing, | [phone] | | | | | | | | | | | Floor [place], [place] | | | | | | [address] | | | | | | [phone] | | | +--------+---------+ + + + [...] with an external order to see a protein specialist today. Please p resent this referral [...] insurance. PRE-PROCEDURE INSTRUCTIONS 1. Please bring a catering truck driver with you as we may [...] 2 weeks before your procedure, please contact [facility] to cl arify your instructions. The phone number for questions or concerns is [phone]. documented in this encounter Progress Notes Alex Sanchez MD,PhD - 10/09/2018 10:00 AM PSTI saw and evaluated the patient with Shakira aVlerio, who conducted the initial history. I reviewed the history in detail a nd edited his note. I performed a physical examination and was present and participating in the formulation portion of the encounter. I agree with the findings and the plan of care as documented in our notes. Alex Sanchez MD,PhD [facility] Center[facility]ronically signed by Alex [...] MD - 10/09/2018 10:00 AM PST [facility] Return Visit Date: 10/09/2018 Chief Complaint Patient presents with Back pain Low back pain Pain in left leg Knee pain Ankle pain Foot pain History of Present Illness: Tracie Farah is a 28 year old female, whose last appoi ntment at the [facility] [place] was September 28, 2018, for a clinic visit with Yun Frey NP. At that time our plans were: Recommendations/Plan: 1. Recommend to keep her appointment with Dr. Sanchez on 10/02/2018. 2. To contact the [facility]'s rep if she has any further question [...] She went into the emergency room in [place], [place] where they rem cady the leads. She [...] which she suspects also used dissolvable stitches. SCIENTIFIC INFORMATICS ANALYST Brief Pain Inventory: (ten= worst possible [...] a light load. Has been working at [employer], can' t work on [employer]. Has roommates. Allergies Allergen Reactions Morphine Anaphylaxis [...] the vein (IV) every eight hour s. 3680-7322-66 COMPOUNDED MED RX CONTROLLED (SEE ADMIN INSTRUCT [...] by physician. Concentration is 150mg/mL. Compounded by [employer] ) KETOROLAC IM Inject into the muscle [...] (IV) every twel ve hours as needed. 2937-3524-51 ONDANSETRON 4 MG DISINTEGRATING TABLET Dissolve 1 tablet in mouth every twelve hours as nee ded. PANTOPRAZOLE 40 MG TABLET,DELAYED RELEASE Take 40 mg by mouth once daily. PEG 3350-ELECTROLYTES 236 GRAM-22.74 GRAM-6.74 GRAM-5.86 GRAM SOLUTION Take as directed by [facility] Dig[facility]- 2 gallon bowel prep [...] and summary of old medical records (source: [employer]), as summarized in the body of the [...] Key. Arben Valerio MD PAIN CENTER AT [facility] 15TH FLOOR [address] [facility] Mail Code: Ch15p [place] [address] [phone] signed by Alex Sanchez MD,PhD at 10/10/2018 9:27 AM [facility] umented in this encounter Plan of Treatment Not on filedocumented as of this encounter Visit Diagnoses + + | Diagnosis | + + | Complex regional pain syndrome type 1 of left lower extremity - Primary | + + documented in this encounter
--- OUTSIDE RECORDS SUMMARY | ~2020-06-02 | XMS | Encounter Summary ---
Demographics + + + | Address | [address] | | | [place] [address] | + + + | Home Phone | | + + + | Preferred Language | Unknown | + + + | Marital Status | Single | + + + | Zoroastrianism Affiliation | 1073 | + + + | Race | Unknown | + + + | Ethnic Group | Unknown | + + + Author + + + | Author | [facility] | | | and [place] | + + + | Organization | [facility] | [...] [place] | | | | | [address] | | + + + + + | Bryant Farah | ECON | Unknown | | + + + + + Care Team Providers + +------+ + | Care Doctor Of Chiropractic Name | Role | Phone | + +------+ + PCP | Unavailable | + +------+ + Encounter Details +--------+ + + + + | Date | Type | Department | Care Team | Description | +--------+ + + + + | 03/16/ | Hospital | [facility] | Conversion | Back pain | | 2013 | Encounter | CONVERSION [address] | Transaction, | | | | | [address] | Provider Unknown | | | | | [place], [place] | [phone] | | | | | [address] | | | | | | [phone] | | | +--------+ + + + [...]
--- OUTSIDE RECORDS SUMMARY | ~2020-06-02 | XMS | Encounter Summary ---
Demographics + + + | Address | [address] | | | [place] [address] | + + + | Home Phone [...] Providers + +------+ + | Care Policy Checker Name | Role | Phone | [...] | | 2015 | | Center at [facility] [address] | MD Melissa | | | | | [facility] | | | | | | for Health and | | | | | | Healing, Building [address] | | | | | | [place], [place] | | | | | | [address] | | | | | | [phone] | | | +--------+ + + + [...]
--- OUTSIDE RECORDS SUMMARY | ~2020-06-02 | XMS | Encounter Summary ---
Demographics + + + | Address | [address] | | | [place] [address] | + + + | Home Phone [...] Team Providers + +------+ + | Care Wad Compressor Operator Adjuster Name | Role | Phone | + +------+ + | Justo Vazquez MD | PCP | | + +------+ + Encounter Details +--------+ + + + + | Date | Type | Department | Care Team | Description | +--------+ + + + + | 08/30/ | Documentati | Pain Center at [facility] | Jamel Madden G, | | | 2018 | on | [address] | PhD [address] | | | | | Center for Health | [place], [place] | | | | | and Healing, | [address] | | | | | | [phone] | | | | | Floor [place], [place] | | | | | | [address] | | | | | | [phone] | | | +--------+ + + + [...]
--- OUTSIDE RECORDS SUMMARY | ~2020-06-02 | XMS | Encounter Summary ---
Demographics + + + | Address | [address] | | | [place] [address] | + + + | Home Phone [...] Providers + +------+ + | Care Production Sorter Name | Role | Phone | [...] + + | 12/05/ | Hospital | [facility] | Alex Sanchez, | | | 2019 | Encounter | STAY [address] | ,PhD [address] [facility] | | | | | Courtney Mailcode: [facility] | [address] | | | | | [facility] | [place], [place] | | | | | Health and [facility], | [address] | | | | | [place] [address] | [phone] | | | | | [place], [place] | | | | | | [address] | | | | | | [phone] | | | +--------+ + + + [...] s/p successful DRG trial lead system with [employer] on 09/25/2018. No changes in H&P, [...] OPERATIVE NOTE Date: December 05, 2018 Location: [facility] [place] | | | Tracie Farah [id number] :1990, presents to clinic | | | for: Dorsal root ganglion stimulator implant PROCEDURE: Dorsal | | | root ganglion stimulator implant PRE-OPERATIVE DIAGNOSIS: Complex | | | regional Pain syndrome type 1 of left lower extremity | | | POST-OPERATIVE DIAGNOSIS: Complex regional Pain syndrome type 1 of | | | left lower extremity ATTENDING PHYSICIAN: Alex Sanchez | | | FIRE POT OPERATOR: Arben Valerio MD ANESTHESIA: sedation by IVIS Cole | | | Carmen, supervised by commission sales associate Ilir Valdes. | | | FINDINGS: Appropriate [...] sedation. Ms. Farah was escorted to the [facility] | | | [place], where she was [...] to the | | | [facility] service support representative. A test stimulation was performed and [...] recovery. Images were saved, and sent to [employer]. | | | Alex Sanchez (attending) was present for the entire procedure. | | | Arben Valerio MD I was present for the entire procedure | | | (spinal cord stimulator implantation with DRG leads at left L4 and | | | L5) and all bocanegra elements of this visit. I reviewed the | | | documentation of the other SCHOOL BUS DRIVER/TEACHER ASSISTANT providers and concur with Dr. | | | Iman's findings. I edited his note. Alex Sanchez, | | | ,PhD Transit Mechanic Anesthesiology and Pain Management | | | [facility] | | + + + [...] + + | JOSE ANTONIO MIN | [address] | [place] [address] | | | OF CARE TESTS | [...]
--- OUTSIDE RECORDS SUMMARY | ~2020-06-02 | XMS | Encounter Summary ---
Demographics + + + | Address | [address] | | | [place] [address] | + + + | Home Phone [...] Team Providers + +------+ + | Care Psychiatric Cns Name | Role | Phone | + +------+ + | Justo Vazquez MD | PCP | | + +------+ + Encounter Details +--------+ + + + + | Date | Type | Department | Care Team | Description | +--------+ + + + + | 12/27/ | Ancillary | [facility] | Alex Sanchez, | | | 2018 | Orders | Pain Center at | ,PhD [address] | | | | | [facility] | [address] | | | | | [address] | [place], [place] | | | | | [place] for [facility] | [address] | | | | | and Healing, | [phone] | | | | | | | | | | | Floor [place], [place] | | | | | | [address] | | | | | | [phone] | | | +--------+ + + + [...]
--- OUTSIDE RECORDS SUMMARY | ~2020-06-02 | XMS | Encounter Summary ---
Demographics + + + | Address | [address] | | | [place] [address] | + + + | Home Phone [...] Team Providers + +------+ + | Care Bullet Assembly Press Setter Operator Name | Role | Phone | [...] Pain Medicine | Diagnoses | Chasity, | Application Integrator Chh1 | | | | / Pain | Abdominal | MD Kenny | [address] | | | | Management | pain, | [address] | [facility] | | | | | unspecified | [facility] | for Health | | | | | location | Rd | and Healing, | | | | | Procedures | [place], [place] | Building | | | | | CONSULT TO | [address] | 1,15th Floor | | | | | PAIN | | [place], [place] | | | | | MANAGEMENT | | [address] | | | | | | | Phone: | | | | | | | [phone] | | | | | | | Fax: | | | | | | | [phone] | +--------+--------+ + + + + Reason [...] Abdominal | | 2016 | | Center [place] [address] [address] | | pain | | | | [address] [facility] | | | | | | for Health and | | | | | | Healing, [facility] [address] | | | | | | [place], [place] | | | | | | [address] | | | | | | [phone] | | | +--------+ + + + [...]
--- OUTSIDE RECORDS SUMMARY | ~2020-06-02 | XMS | Encounter Summary ---
Demographics + + + | Address | [address] | | | [place] [address] | + + + | Home Phone [...] Team Providers + +------+ + | Care Band Head Saw Operator Name | Role | Phone [...] + + | 08/07/ | Refill | [facility] | Alex Sanchez, | Refill Request | | 2018 | | Pain Center at | ,PhD [address] | | | | | [facility] | [address] | | | | | [address] | [place], [place] | | | | | [facility] | [address] | | | | | and [place], | [phone] | | | | | [facility] | | | | | | Floor [place], [place] | | | | | | [address] | | | | | | [phone] | | | +--------+--------+ + + + [...]
--- OUTSIDE RECORDS SUMMARY | ~2020-06-02 | XMS | Encounter Summary ---
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 Chh1 | | | | / Pain | Abdominal | MD Kenny | [address] | | | | Management | pain, | [address] | [facility] | | | | | unspecified | [facility] | for Health | | | | | location | Rd | and Healing, | | | | | Procedures | [place], [place] | Building | | | | | CONSULT TO | [address] | 1,15th Floor | | | | | PAIN | | [place], [place] | | | | | MANAGEMENT | | [address] | | | | | | | Phone: | | | | | | | [phone] | | | | | | | Fax: | | | | | | | [phone] | +--------+--------+ + + + + Encounter Details +--------+---------+ + + + | Date | Type | Department | Care Team | Description | +--------+---------+ + + + | 07/11/ | Office | [facility] Comprehensive | Ilene Bright, | Pain of upper | | 2017 | Visit | Pain Center at | HEALTH SUPPORT SPECIALIST [address] | abdomen (Primary | | | | [place] | [place], [place] | Dx); Intractable | | | | [address] | [address] | cyclical vomiting | | | | [facility] | [phone] | with nausea; | | | | and Healing, | | Irritable bowel | | | | Building | | syndrome with | | | | Floor [place], [place] | | constipation; | | | | [address] | | Complex regional | | | | [phone] | | pain syndrome type 1 | [...] and determine next steps. Ilene Childs DNP, HEALTH SUPPORT SPECIALIST-C Adult Pain Service /[facility] [address] [place] [address] documented in this encounter Progress Notes Ilene Bright FNP - 07/11/2017 1:35 PM PDTFormatting of this note might be different fr om the original. [facility] Return Visit Date: 07/11/2017 Chief Complaint Patient presents with Abdominal pain Back pain History of Present Illness: Tracie Farah is a 27 year old female, whose last appoi ntment at the [facility] was April 25, [...] in the [facility]. She has also changed [...] her abdominal pain an d associated symptoms. [facility] QUESTIONNAIRE BRIEF PAIN 07/11/2017 Please rate [...] has interfered with your sleep : 5 FACILITIES ENGINEERING MANAGER Questionnaire Follow-up Patient 07/11/2017 Please describe [...] History Social History Narrative Single. Goes to [employer] with a light load. Has been working at [employer], can' t work on [employer]. Has roommates. Allergies Allergen Reactions Morphine Anaphylaxis [...] by physician. Concentration is 150mg/mL. Compounded by [facility] ) LAMOTRIGINE 200 MG TABLET Take [...] and summary of old medical records (source: [employer]), as summarized in the body of the [...] I, Shantel Salinas, am functioning as a registered medical transcriptionist for TERESA Clark DNP-C I have reviewed and verified the above scribed note of my visit with this patient as record ed by Shantel Salinas. Ilene Childs DNP, TERESA-C Adult Pain Service /[facility] [address] [place] [address] Addendum: I paged Dr. Les Gaspar. He was out of the clinic, I spoke with the covering provider and sha dandre Tracie's request for food allergy testing. Since Tracie thinks her pain and vomiting may b e triggered by gluten, covering provided ordered appropriate workup, which I communicated to Tracie and the the lab in [place], [place]. She will followup with me and GI once these results are available. Ilene Childs DNP, HEALTH SUPPORT SPECIALIST-C Adult Pain Service /[facility] [address] [place] [address] documented in this e ncounter Plan of [...]
--- OUTSIDE RECORDS SUMMARY | ~2020-06-02 | XMS | Encounter Summary ---
Demographics + + + | Address | [address] | | | [place] [address] | + + + | Home Phone [...] Team Providers + +------+ + | Care Continuous Loft Operator Name | Role | Phone | [...] 2016 | | Pain Center at | EDUCATION COURSES SALES REPRESENTATIVE [address] | | | | | [facility] | [place], [place] | | | | | [address] | [address] | | | | | [facility] | [phone] | | | | | and Healing, | | | | | | Building | | | | | | [place], [place] | | | | | | [address] | | | | | | [phone] | | | +--------+ + + + [...]
--- OUTSIDE RECORDS SUMMARY | ~2020-06-02 | XMS | Encounter Summary ---
Demographics + + + | Address | [address] | | | [place] [address] | + + + | Home Phone [...] Team Providers + +------+ + | Care Amphibious Operations Officer Name | Role | Phone | [...] | | [address] [facility] for | [place], [place] | | | | | Health and Healing, | [address] | | | | | | [phone] | | | | | [place], [place] | | | | | | [address] | | | | | | [phone] | | | +--------+ + + + [...]
--- OUTSIDE RECORDS SUMMARY | ~2020-06-02 | XMS | Encounter Summary ---
Demographics + + + | Address | [address] | | | [place] [address] | + + + | Home Phone [...] Team Providers + +------+ + | Care Heat Treat Supervisor Name | Role | Phone | [...] 2016 | | Pain Center at | PAYROLL PROCESSOR [address] | | | | | [facility] | [place], [place] | | | | | [address] | [address] | | | | | [facility] | [phone] | | | | | and Healing, | | | | | | [facility] | | | | | | [place], [place] | | | | | | [address] | | | | | | [phone] | | | +--------+ + + + [...]
--- OUTSIDE RECORDS SUMMARY | ~2020-06-02 | XMS | Encounter Summary ---
Demographics + + + | Address | [address] | | | [place] [address] | + + + | Home Phone [...] Team Providers + +------+ + | Care Lawn Maintenance Worker Name | Role | Phone | + +------+ + | Justo Vazquez MD | PCP | | + +------+ + Encounter Details +--------+ + + + + | Date | Type | Department | Care Team | Description | +--------+ + + + + | 05/05/ | Documentati | [facility] Comprehensive | Alex Sanchez, | | | 2018 | on | Pain Center at | ,PhD [address] | | | | | [facility] | [address] | | | | | [address] | [place], [place] | | | | | [place] for [facility] | [address] | | | | | and Healing, | [phone] | | | | | | | | | | | Floor [place], [place] | | | | | | [address] | | | | | | [phone] | | | +--------+ + + + [...]
--- OUTSIDE RECORDS SUMMARY | ~2020-06-02 | XMS | Encounter Summary ---
Demographics + + + | Address | [address] | | | [place] [address] | + + + | Home Phone [...] Team Providers + +------+ + | Care Punch Hand Name | Role | Phone | [...] CRPS | Janak Martinez MD | Chh1 [address] | | | | Management | (complex | [address] | | | | | regional | [address] | Center for | | | | | pain | [address] | Health and | | | | | syndrome), | [address] | Healing, | | | | | lower limb | [place], [place] | Building | | | | | Gait | [address] | 1,15th Floor | | | | | disturbance | Phone: | [place], [place] | | | | | Muscle pain | [phone] | [address] | | | | | Procedures | Fax: | Phone: | | | | | CONSULT TO | [phone] | [phone] | | | | | PAIN CENTER | | Fax: | | | | | | | [phone] | +--------+--------+ + + + + Encounter [...] | | | | | | Floor [place], [place] | | | | | | [address] | | | | | | [phone] | | | +--------+---------+ + + + [...] [facility] Name: Tracie Farah MR#: [id number] Date of : 1990 Date: March 20, 2012 Attending Psychologist: SHELIA FELDMAN, PHD CPT: 10092 Duration: 60min Psych: 309.0 Pain: 355.71 Tracie arrived on time for today's appointment, casually dressed and neatly groomed. Affect was appropriate, mood normothymic. She drove herself today and used crutches. She stated t hat she was doing "better", mainly because she has returned to work at [employer]. She is wo rking about 2 hour shifts; her pain is flared during work but she feels good because she is engaging in life and also is earning money. She reported that she has been cutting down on her pain medication because she wants to improve cognition (currently taking 1-2 daily at [facility] for sleep). She notes that she [...] discretion, not currently planned. SHELIA FELDMAN, PHD Scalping Machine Operator Licensed Clinical Psychologist [facility] [place] Department of Anesthesiology & Perioperative Medicine [facility] [address] [place], [place] [id number] Historical Information: Introduction: Tracie Farah is a 21-year-old woman with >5 year hx of CRPS, R LE.S ocial & Psychiatric History: Tracie Farah lives in [place] in a shared apartment space. She has struggled wi th CRPS for at least 5 years; original injury to her foot was in 2001. In summer 2010 she h ad inpt pain tx at [facility] with limited assisted benefit. Recent flare; she arrived using crutches [...] She learned some pain management techniques at [facility], mainly DB and PMR, which [...] Travel is a barrier; she lives in [place] DSM-IV Diagnoses/Impressions: [place] I: 1. 309.9 Unspecified Adjustment Reaction 2. 780.50 Sleep Disturbance [place] II: Deferred. [place] III: Patient Active Problem List Diagnoses CRPS (complex regional pain syndrome), lower limb Gait disturbance Muscle pain Adjustment reaction [place] IV: CRPS pain, pain related debility;difficulty attending class, working; family stres s; stalker ex-bf [place] V: Global Assessment of Functioning = 75 [...] me should questions arise. SHELIA FELDMAN, PHD Scalping Machine Operator Licensed Clinical Psychologist [facility] [place] Department of Anesthesiology & Perioperative Medicine [facility] [address] [place] [address] documented in this enc ounter Plan of Treatment Not on filedocumented as of this encounter Visit Diagnoses + + | Diagnosis | + + | Unspecified adjustment reaction - Primary | + + documented in this encounter
--- OUTSIDE RECORDS SUMMARY | ~2020-06-02 | XMS | Encounter Summary ---
Demographics + + + | Address | [address] | | | [place] [address] | + + + | Home Phone [...] Team Providers + +------+ + | Care Set Painter Name | Role | Phone | + +------+ + | Allegra Gandhi | PCP | | + +------+ + Encounter Details +--------+ + + + + | Date | Type | Department | Care Team | Description | +--------+ + + + + | 02/13/ | Outside | UNKNOWN DEPARTMENT | Other, Faculty | | | 2011 | Records | [address] | [phone] | | | | | [address] | | | | | | [place], [place] | | | | | | [address] | | | +--------+ + + + [...]
--- OUTSIDE RECORDS SUMMARY | ~2020-06-02 | XMS | Encounter Summary ---
Demographics + + + | Address | [address] | | | [place] [address] | + + + | Home Phone [...] Providers + +------+ + | Care Machine Leather Trimmer Name | Role | Phone | [...] | Alex Alba, | [facility] [address] | | | | | regional | ,PhD [address] | [address] | | | | | pain | [address] | | | | | syndrome | [address] | [address], | | | | | type 1 of | Rd | Basement | | | | | left lower | [place], [place] | [place], [place] | | | | | extremity | [address] | [address] | | | | | Muscle pain | Phone: | Phone: | | | | | Procedures | [phone] | [phone] | | | | | NM BONE | Fax: | Fax: | | | | | &/OR JOINT | [phone] | [phone] | | | | | IMAGING | [...] | | 2018 | Encounter | at [facility] [address] | ,PhD [address] [facility] | | | | | [address] | [address] | | | | | [address], | [place], [place] | | | | | [facility] [place], | [address] | | | | | [place] [address] | [phone] | | | | | [phone] | | | +--------+ + + + [...]
--- OUTSIDE RECORDS SUMMARY | ~2020-06-02 | XMS | Encounter Summary ---
Demographics + + + | Address | [address] | | | [place] [address] | + + + | Home Phone [...] Team Providers + +------+ + | Care Hazardous Waste Technician Name | Role | Phone | [...] | | | sympathetic | [place] | [address]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 | FAMILY | [address] | | | | | of lower | MEDICINE P | [address] | | | | | limb | [address] | [place], [place] | | | | | | [place], | [address] | | | | | | [place] [address] | Phone: | | | | | | Phone: | [phone] | | | | | | [phone] | Fax: | | | | | | Fax: | [phone] | | | | | | [phone] | | +--------+--------+ + + + + Encounter Details +--------+---------+ + + + | Date | Type | Department | Care Team | Description | +--------+---------+ + + + | 03/17/ | Office | [facility] | Dale Cantu, | CRPS (complex | | 2011 | Visit | Pain Center at | [address] | regional pain | | | | [place] | [address] [id number] | syndrome), lower | | | | [address] | [place], [place] | limb; Adjustment | | | | [place] for [facility] | [address] | reaction; Muscle | | | | and Healing, | [phone] | pain; Gait | | | | [facility] | | disturbance | | | | Floor [place], [place] | | | | | | [address] | | | | | | [phone] | | | +--------+---------+ + + + [...] Pain: After Your Visit", log into your Lockitron nt at [email or web address]. You can enter G828 in the [employer] Library" search box. Not on [employer]? Review the MyChart section of your After Visit Summary for directions on liz rea to sign up. [phone] [employer]. Care instructions adapted under license by [facility]. This care instruction is for use with your licensed healthcar e professional. If you have questions about a medical condition or this instruction, always ask your healthcare professional. [employer] disclaims any warranty or liabili ty for your use of this information. Content Version: 9.2.836145; Last Revised: April 29, 2011 Nortriptyline for [...] Pain: After Your Visit", log into your Lockitron nt at [email or web address]. You can enter G828 in the [employer]" search box. Not on Jellycoaster? Review the Reedsyhart section of your After Visit Summary for directions on ho w to sign up. [phone] [employer]. Care instructions adapted under license by [facility] [place]. This care instruction is for use with your licensed healthcar e professional. If you have questions about a medical condition or this instruction, always ask your healthcare professional. [employer] disclaims any warranty or liabili ty for your use of this information. Content Version: 9.2.824336; Last Revised: April 29, 2011 documented in [...] documented in our notes. DALE CANTU MD Transplant Registered Nurse, [facility] Propeller Tester, Pain Medicine Professor, Anesthesiology & Perioperative Medicine NAMollMarquis manriquez MD - 03/17/2012 3:42 PM PDT [facility] Pain [facility] Return Visit with [...] her pain. She continues to take 6-8 [place] per day and 600 mg of ibuprofen [...] and a pain drawing which I reviewed. [facility] Brief Pain Inventory: (ten= worst possible [...] The Review of Systems obtained by the [facility] was reviewed. Additional Review of Systems: [...] she had her first consultation with Dr. Godlie Feldman, a visit which she spoke highly [...] you require any medication refills today? no AUTOMATION DEVELOPER ROS: 1. Bones, Joints, and Muscles: cramps [...]
--- OUTSIDE RECORDS SUMMARY | ~2020-06-02 | XMS | Encounter Summary ---
Demographics + + + | Address | [address] | | | [place] [address] | + + + | Home Phone [...] Team Providers + +------+ + | Care Colorer Machine Name | Role | Phone | [...] | | | regional | [place] | [address] | | | | | pain | FAMILY | Mailstop | | | | | syndrome), | MEDICINE P | [id number] | | | | | lower limb | [address] | [place], [place] | | | | | Pain in | [place], | [address] | | | | | joint, lower | [place] [address] | Phone: | | | | | leg | Phone: | [phone] | | | | | Procedures | [phone] | Fax: | | | | | REQUEST TO | Fax: | [phone] | | | | | SURGERY | [phone] | | | | | | LINSEED OIL TEMPERER | | | +--------+--------+ + + + + Encounter Details +--------+ + + + + | Date | Type | Department | Care Team | Description | +--------+ + + + + | 08/02/ | Procedure | Pain Center at [facility] | Dale Cantu, | Procedure; | | 2011 | | [address] | [address] | Injection; Procedure | | | | [facility] | [facility] [address]455 | | | | | and Healing, | [place], [place] | | | | | [facility] | [address] | | | | | Floor [place], [place] | [phone] | | | | | [address] | | | | | | [phone] | | | +--------+ + + + [...] e might be different from the original. [facility] Patient Instructions - Post Spinal Cord Stimulator Trial Date: 08/02/2012 Name: Tracie Farah Date of : 1990 Procedure Performed: SCS TRIAL LUMBAR [facility] Procedure Provider: Dale Cantu [facility] Procedure Rm If you have any problems you believe are associated with your procedure tonight, Please call the Hospital Cattle Dealer, and ask for the Pain Management Consu ltant. If you have problems or questions between 9:00 am and 4:00 pm, Please call the [facility] Nurse Triage Line, . If you go to an Emergency Room, please bring this form with you. DISCHARGE INSTRUCTIONS Call immediately and/or go to the Emergency department if any concerns about wound healing, fever, or chills. Also call for concerns about SCS function. During [facility] open hours, call the [facility] ([phone]), after hours call the slitter scorer cut off operator at [facility] ([phone]) and ask for t he Adult Pain Service ceramic maker demonstrator. Identify yourself as a [facility] [...] the wounds, dressing, or SCS function. During [facility] o pen hours, call the [facility] ([phone]), after hours call the slitter scorer cut off operator at [facility] ([phone] ) and ask for the Adult Pain Service ceramic maker demonstrator. Identify yourself as my patient with a concer n about postoperative recovery. If there are concerns about the SCS programming, contact t he policy services representative from the SCS promotional marketing agent. If the stimulation is not covering your area o f pain, your SCS should be reprogrammed. Do not take any blood thinning medications during the trial. Instructions printed and reviewed with the patient. Copy of instructions given to Ms. Nemo renee. DALE CANTU MD [facility] documented [...] and postoperative care instructions. DALE CANTU MD [employer]erry[employer] Ticket Taker, [facility] Care Team Coordinator Scheduler, Pain Medicine Professor, Anesthesiology & Perioperative Medicine Diana Arroyo RN - 08/02/2012 7:34 AM PDT PRE-SEDATION: Date: August 02, 2012 Tracie Farah [id number] 1990 ALLERGIES: Morphine Previous reaction to Sedation/Analgesia: MEDICATIONS: Current Outpatient Prescriptions Medication HYDROcodone-acetaminophen (NORCO) 10-325 mg Oral Tablet KETOROLAC TROMETHAMINE (TORADOL IM) levonorgestrel (MIRENA) 20 mcg/24 hr Intrauterine IUD LORazepam 1 mg Oral Tablet ondansetron (ZOFRAN) 8 mg Oral Tablet promethazine 25 mg Oral Tablet Meets NPO Guidelines. IV ACCESS: IV in Place IV Site [facility] 22 g @ 0655 BASELINE VS: See Sedation Flow Sheet. Tracie Donaldson [facility] [id number] 1990, presents to clinic for: Procedure: Spinal [...] 0732 - 0733: [place]azol[place] 2 [place] [address]: Fentanyl 25 mcg IV 0740 - 0741: Midazolam 2 mg IV 0742: Procedure started 0743 - 0744: Fentanyl 50 mcg IV 0753-54: Fentanyl 25 mcg IV Lead # 1 placed Lead # 2 placed 0801: Stimulation started. 0829: Pt reports stimulation to usual areas of pain. Leads secured. 0845: Pt returned to [facility] in stable condition. IV dc'd. Evelia [...] OPERATIVE NOTE Date: August 02, 2012 Location: [facility] Procedure Room Tracie Farah [id number] :1990, presents to clinic for: PROCEDURE: Spinal Cord Stimuation Trial LEVEL/LATERALITY: midline lumbar PRE-OPERATIVE DIAGNOSIS: 355.71B CRPS (complex regional pain syndrome), lower limb 719.46 Pain in joint, lower leg 781.2Q Gait disturbance POST-OPERATIVE DIAGNOSIS: 355.71B CRPS (complex regional pain syndrome), lower limb 719.46 Pain in joint, lower leg 781.2Q Gait disturbance ATTENDING PHYSICIAN: Dale Cantu MD MASTER [employer]: Fellow Bear Yost DO ANESTHESIA: sedation delivered [...] sedation. Ms. Farah was escorted to the [facility] Procedure Ro om, where she was positioned Prone on the examination table. TEAM PAUSE: The physician-led pause was conducted, and is documented in the Nursing note. Monitors were placed, including ECG, NIBP and SpO2. The skin was prepared with Chloroprep and sterile drapes were applied. SpectraLinear system was used for this procedure. The company policy services representative was theresa knutson for the [...] pain. Ms. Farah was transported to the [facility] post-procedure recovery area where she made an uneventful recovery. Images were saved, and sent to HOSTING. Ms. Farah will have her next appointment [...] about wound healing or SCS function. During [facility] open hours, call the [facility] ([phone]), after h ours call the slitter scorer cut off operator at [facility] ([phone]) and ask for the Adult Pain Service ceramic maker demonstrator. Identify yourself as my patient with a [...] + +--------+ + + + | [place] PERCUT IMPLNT | Routin | 08/03/2012 | [...]
--- OUTSIDE RECORDS SUMMARY | ~2020-06-02 | XMS | Encounter Summary ---
[...] Providers + +------+ + | Care Computer Repair Technician Name | Role | Phone | + +------+ + | Justo Vazquez MD | PCP | | + +------+ + Encounter Details +--------+ + + + + | Date | Type | Department | Care Team | Description | +--------+ + + + + | 03/11/ | Telephone | [facility] | Zeeshan Mahoney MD | | | 2019 | | Pain Center at | [address] | | | | | [facility] | [facility], | | | | | [address] | [place] [address] | | | | | [place] for [facility] | [phone] | | | | | and Healing, | | | | | | | | | | | | [place], [place] | | | | | | [address] | | | | | | [phone] | | | +--------+ + + + [...]
--- OUTSIDE RECORDS SUMMARY | ~2020-06-02 | XMS | Encounter Summary ---
Demographics + + + | Address | [address] | | | [place] [address] | + + + | Home Phone [...] Providers + +------+ + | Care Crop Grain Or Livestock Farm Manager Name | Role | Phone | [...] | | [address] [facility] for | [place], [place] | | | | | Health and Healing, | [address] | | | | | | [phone] | | | | | [place], [place] | | | | | | [address] | | | | | | [phone] | | | +--------+ + + + [...]
--- OUTSIDE RECORDS SUMMARY | ~2020-06-02 | XMS | Encounter Summary ---
Demographics + + + | Address | [address] | | | [place] [address] | + + + | Home Phone [...] Providers + +------+ + | Care Motor Vehicles Inspector Name | Role | Phone | [...] | | 2016 | | Center at [facility] [address] | MD Melissa | | | | | [address] | | | | | | for Health and | | | | | | Healing, [address] | | | | | | [place], [place] | | | | | | [address] | | | | | | [phone] | | | +--------+ + + + [...]
--- OUTSIDE RECORDS SUMMARY | ~2020-06-02 | XMS | Encounter Summary ---
Demographics + + + | Address | [address] | | | [place] [address] | + + + | Home Phone [...] Team Providers + +------+ + | Care Log Grader Name | Role | Phone | [...] ogy | | Ava Torres, | [address] | | | | | Constipation | [address] | [address] | | | | | , | [address] | [place] for | | | | | unspecified | [address] | Health and | | | | | constipation | [facility] [place] | Healing, | | | | | type | [address] | [address] | | | | | Procedures | | [place], [place] | | | | | CONSULT TO | | [address] | | | | | GI PROCEDURE | | Phone: | | | | | UNIT: | | [phone] | | | | | ANORECTAL | | Fax: | | | | | MANOMETRY | | [phone] | | | | | AL ANAL | | | | | | [...] | ogy | | V[place], | [address] | | | | | Gastroparesi | Allegra Nieto, | [address] | | | | | s | [place] [address] | Center for | | | | | | [address] | Health and | | | | | | [place], | Healing, | | | | | | [place] [address] | [address] | | | | | | Phone: | [place], [place] | | | | | | [phone] | [address] | | | | | | Fax: | Phone: | | | | | | [phone] | [phone] | | | | | | | Fax: | | | | | | | [phone] | +--------+--------+ + + + + Encounter Details +--------+---------+ + + + | Date | Type | Department | Care Team | Description | +--------+---------+ + + + | 08/10/ | Office | Digestive Health | Ava Carbajal | Constipation, | | 2015 | Visit | Center at [facility] [address] | MD Melissa | unspecified | | | | [address] [facility] | | constipation type | | | | for Health and | | (Primary Dx) | | | | Healing, [address] | | | | | | [place], [place] | | | | | | [address] | | | | | | [phone] | | | +--------+---------+ + + + [...] in their attached note. Celia Lin MD Supervisor/Port Directorlcac radar operator/navigator Division of Gastroenterology & Hepatology [facility] va Carbajal MD - 08/09/2016 8:40 PM PDT Gastroenterology Initial Clinic Note 08/09/2016 CHIEF COMPLAINT/IDENTIFICATION: "Gastroparesis"-Nausea emesis and abdominal pain -SECOND O GERMAINE Dr. Flores-[facility] PCP: HANDY Villalpando HISTORY OF [...] Dr. Flores in [facility] at [facility]. Patient has hx of GERD which [...] had CT abdomen w contrast done at [facility] on 10/23/15 showing large stool burden but [...] GI MDS: Dr. Nyla Garcia GI Dr[facility] LABS: -increased CRP 06/19/16: Lipase-normal [...] form versus functional syndrome. Would also con planner GERD as a cause for her nausea [...]
--- OUTSIDE RECORDS SUMMARY | ~2020-06-02 | XMS | Encounter Summary ---
Demographics + + + | Address | [address] | | | [place] [address] | + + + | Home Phone [...] Team Providers + +------+ + | Care Heel Cutter Name | Role | Phone | + +------+ + | Justo Vazquez MD | PCP | | + +------+ + Encounter Details +--------+ + + + + | Date | Type | Department | Care Team | Description | +--------+ + + + + | 09/25/ | Pharmacy | [facility] | | | | 2018 | Visit | & [facility]acy | | | | | | [address] | | | | | | Mailcode: [place] | | | | | | [facility] Health and | | | | | | Healing, [address] | | | | | | [place], [place] | | | | | | [address] | | | | | | [phone] | | | +--------+ + + + [...]
--- OUTSIDE RECORDS SUMMARY | ~2020-06-02 | XMS | Encounter Summary ---
Demographics + + + | Address | [address] | | | [place] [address] | + + + | Home Phone [...] Providers + +------+ + | Care Manufacturing Coordinator Name | Role | Phone | [...] | Pain Center at | [address] | | | | | [facility] | [facility] [id number] | | | | | [address] | [place], [place] | | | | | Center for Health | [address] | | | | | and Healing, | [phone] | | | | | [facility] | | | | | | Floor [place], [place] | | | | | | [address] | | | | | | [phone] | | | +--------+ + + + [...]
--- OUTSIDE RECORDS SUMMARY | ~2020-06-02 | XMS | Encounter Summary ---
Demographics + + + | Address | [address] | | | [place] [address] | + + + | Home Phone [...] Team Providers + +------+ + | Care Cuff Folder Name | Role | Phone | + [...] Diagnoses | Beulah | Edu Pt Patient Services Clerk | | | | Therapy | CRPS | Janak Martinez MD | [address] | | | | | (complex | [address] | | | | | regional | [address] | Mailcode: | | | | | pain | [facility]stop | [facility] | | | | | syndrome), | [address] | for Health | | | | | lower limb | [place], [place] | and Healing, | | | | | Gait | [address] | [address] | | | | | disturbance | Phone: | [place], [place] | | | | | Muscle pain | [phone] | [address] | | | | | Procedures | Fax: | Phone: | | | | | PHYSICAL | [phone] | [phone] | | | | | THERAPY | [...] | | | | [place] | [place] [address] | syndrome), lower | | | | [address] | [phone] | limb (Primary Dx) | | | | [facility] | | | | | | and Healing, | | | | | | Building 1, | | | | | | Floor [place], [place] | | | | | | [address] | | | | | | [phone] | | | +--------+---------+ + + + [...] might be different f rom the original. [id number] BRODY FARAH Date of : 1990 Start of care: 02/14/2012 Date of onset: 02/14/2012 Referring/Attending Practitioner: Janak Riojas MD . Primary/Referral Diagnosis/ICD-9: 355.71B CRPS (complex regional pain syndrome), lower limb Insurance: Payor: [facility] [employer] Plan: BCBS OUT OF STATE Product Type: PP O Service period from: 02/14/2012 to: 08/12/2012 Number visits used/authorized: 04/25 [facility] PHYSICAL THERAPY PROGRESS NOTE [...] [facility] Outpatient Rehabilitation Services Mailcode: Ch3p 04[address] [facility], [address] [place] [address] documented in this encounter Plan of Treatment Not on filedocumented as of this encounter Procedures + +--------+ + + + | Procedure Name | Priori | Date/Time | Associated Diagnosis | Comments | | | ty | | | | + +--------+ + + + | OK THERAPEUTIC | Routin | 06/13/2012 | CRPS [...]
--- OUTSIDE RECORDS SUMMARY | ~2020-06-02 | XMS | Encounter Summary ---
Demographics + + + | Address | [address] | | | [place] [address] | + + + | Home Phone [...] Providers + +------+ + | Care Clinical Material Handler Name | Role | Phone | [...] | 10/07/ | Telephone | [facility] Comprehensive | Yosef Kenney MD | Wound infection | | 2018 | | Pain Center at | [address] | (Concern for DRG | | | | [facility] | [address] [place], | trial wound | | | | [address] | [place] [address] | infection) | | | | [place] for Health | [phone] | | | | | and Healing, | | | | | | | | | | | | [place], [place] | | | | | | [address] | | | | | | [phone] | | | +--------+ + + + [...]
--- OUTSIDE RECORDS SUMMARY | ~2020-06-02 | XMS | Encounter Summary ---
Demographics + + + | Address | [address] | | | [place] [address] | + + + | Home Phone [...] Team Providers + +------+ + | Care Button Spindler Name | Role | Phone | + [...] Oliveira | | 2011 | IP | [address] | | House - Approved | | | | Giuliana Maldonado [place], | | | | | | [place] [address] | | | +--------+ + + + [...]
--- OUTSIDE RECORDS SUMMARY | ~2020-06-02 | XMS | Encounter Summary ---
Demographics + + + | Address | [address] | | | [place] [address] | + + + | Home Phone [...] Providers + +------+ + | Care Manager Therapy Name | Role | Phone | + [...] | | [address] | [place], [place] | | | | | [facility] | [address] | | | | | and Healing, | [phone] | | | | | | | | | | | Floor [place], [place] | | | | | | [address] | | | | | | [phone] | | | +--------+ + + + [...]
--- OUTSIDE RECORDS SUMMARY | ~2020-06-02 | XMS | Encounter Summary ---
Demographics + + + | Address | [address] | | | [place] [address] | + + + | Home Phone [...] Providers + +------+ + | Care Environmental Designer Name | Role | Phone | [...] | Pain Center at | ,PhD [address] [facility] | | | | | [facility] | [address] | | | | | [address] | [place], [place] | | | | | [facility] | [address] | | | | | and Martina, | [phone] | | | | | [facility] | | | | | | Floor [place], [place] | | | | | | [address] | | | | | | [phone] | | | +--------+--------+ + + + [...]
--- OUTSIDE RECORDS SUMMARY | ~2020-06-02 | XMS | Encounter Summary ---
Demographics + + + | Address | [address] | | | [place] [address] | + + + | Home Phone [...] Providers + +------+ + | Care Client Strategist Name | Role | Phone | [...] 2017 | | Pain Center at | PRINT LINE SUPERVISOR [address] | | | | | [facility] | [place], [place] | | | | | [address] | [address] | | | | | [facility] | [phone] | | | | | and Healing, | | | | | | Building | | | | | | [facility] [place] | | | | | | [address] | | | | | | [phone] | | | +--------+ + + + [...]
--- OUTSIDE RECORDS SUMMARY | ~2020-06-02 | XMS | Encounter Summary ---
Demographics + + + | Address | [address] | | | [place] [address] | + + + | Home Phone [...] Team Providers + +------+ + | Care Trial Manager Name | Role | Phone | + +------+ + | Justo Vazquez MD | PCP | | + +------+ + Encounter Details +--------+ + + + + | Date | Type | Department | Care Team | Description | +--------+ + + + + | 03/12/ | Salesperson Pets And Pet Supplies | [facility] Comprehensive | Alex Sanchez, | Complex regional | | 2019 | | Pain Center at | ,PhD [address] [facility] | pain syndrome type 1 | | | | [facility] | [address] | of left lower | | | | [address] | [place], [place] | extremity; S/P | | | | Center for Health | [address] | insertion of spinal | | | | and Healing, | [phone] | cord stimulator | | | | | | | | | | Floor [place], [place] | | | | | | [address] | | | | | | [phone] | | | +--------+ + + + [...]
--- OUTSIDE RECORDS SUMMARY | ~2020-06-02 | XMS | Encounter Summary ---
Demographics + + + | Address | [address] | | | [place] [address] | + + + | Home Phone [...] Providers + +------+ + | Care Supervisor Scouring Pads Name | Role | Phone | + [...] | | Complex | [place], | [facility] [address] | | | | | regional | ,PhD [address] | [address] | | | | | pain | [address] | | | | | syndrome | [address] | [address], | | | | | type 1 of | Rd | Basement | | | | | left lower | [place], [place] | [place], [place] | | | | | extremity | [address] | [address] | | | | | Muscle pain | Phone: | Phone: | | | | | Procedures | [phone] | [phone] | | | | | NM BONE | Fax: | Fax: | | | | | &/OR JOINT | [phone] | [phone] | | | | | IMAGING | [...] | | | | | | RI BONE | | | | | | | IMAGING, | | | | | | | LIMITED AREA | | | | | | | RI BONE | | | | | | [...] | | 2018 | Encounter | at [facility] [address] | ,PhD [address] [facility] | | | | | [address] | [address] | | | | | [address], | [place], [place] | | | | | [facility], | [address] | | | | | [place] [address] | [phone] | | | | | [phone] | | | +--------+ + + + [...]
--- OUTSIDE RECORDS SUMMARY | ~2020-06-02 | XMS | Encounter Summary ---
Demographics + + + | Address | [address] | | | [place] [address] | + + + | Home Phone [...] Providers + +------+ + | Care Food Service Director Name | Role | Phone | [...] | | syndrome | [address] [place] | [facility] | | | | | type 1 of | [address] | Rd [place], | | | | | left lower | [place], [place] | [place] | | | | | extremity | [address] | [address] | | | | | Procedures | Phone: | Phone: | | | | | REQUEST TO | [phone] | [phone] | | | | | SURGERY | Fax: | Fax: | | | | | AREA MANAGER | [phone] | [phone] | +--------+---------+ + + + + Encounter Details +--------+ + + + + | Date | Type | Department | Care Team | Description | +--------+ + + + + | 12/ | Procedure | Pain Center at [facility] | Alex Sanchez, | Foot pain; Knee | | 2018 | | [address] | ,PhD [address] | pain; Procedure | | | | [facility] | [facility] | | | | | and Healing, | [place], [place] | | | | | | [address] | | | | | Floor [place], [place] | [phone] | | | | | [address] | | | | | | [phone] | | | +--------+ + + + [...] Sonia Key - 09/25/2018 1:00 PM PST [facility] Patient Instructions - Post Interventional Procedure Date: 09/25/2018 Name: Tracie Farah Date of : 1990 Procedure Performed: SCS DRG TRIAL LUMBAR [facility] Procedure Provider: Alex Sanchez MD,PhD If you have any problems you believe are associated with your procedure tonight, Please call the Hospital Radio Station Operator, and ask for the Pain Management Consu ltant. If you have problems or questions between 9:00 am and 4:00 pm, Please call the [facility] Nurse Triage Line, . [...] symptoms, dressing, SCS function, or chills. During BARREL BRANDER open ho urs, call the [facility] ([phone]), after hours call the automatic winder operator at [facility] ([phone]) and ask for the Adult Pain Service airway controller. Identify yourself as a Comprehensive Pain [...] the pat ient. Aleta Rebollar MD [facility] Guzkxzbhwbdzja signed by Sonia Key at 09/25/2018 3:07 PM PST documented in this encounter Progress Notes Alex Sanchez MD,PhD - 09/25/2018 1:00 PM PSTI was present for the entire procedure ( DRG SCS trial) and all bocanegra elements of this visit. I reviewed the documentation of the othe r [facility] providers and concur with Dr. Rebollar's findings. I edited his note. Alex Sanchez MD,PhD Fixed Route Operator Anesthesiology and Pain Management [facility] Dickson onacZain bonner RN - 09/25/2018 1:00 PM [...] by physician. Concentration is 150mg/mL. Compounded by [facility] ) KETOROLAC IM Inject into the muscle [...] SOLUTION Take as directed by [facility] Digestive [facility]- [...] normal airway Assessment: I have reviewed Ms. aFrah's history and and conducted the physical examination as docume nted above. This patient is appropriate for moderate sedation. Ms. Farah has provided written consent for sedation with this procedure. ASA Status: 2. Plan: Procedure with moderate sedation Khloe Wang RN - 09/25 1:00 PM PST RN/ZOFIA PRE-SEDATION: Date: September 25, 2018 Tracie Farah [id number] 1990 ALLERGIES: Morphine Previous reaction to Sedation/Analgesia: [...] NOTES: Date: September 25, 2018 Tracie Donaldson [facility] [id number] 1990 ALLERGIES: Morphine Previous reaction to Sedation/Analgesia: [...] VS: See Sedation Flow Sheet. Tracie Donaldson [facility] [id number] 1990, presents to clinic for: Procedure: bilateral [...] OPERATIVE NOTE Date: September 25, 2018 Location: [facility] Procedure Room Tracie Donaldson [facility] [id number] :1990, presents to clinic for: PROCEDURE: DRG Spinal Cord Stimuation Trial with [employer] system LEVEL/LATERALITY: left L4, L5 PRE-OPERATIVE DIAGNOSIS: G90.522 Complex regional pain syndrome type 1 of left lower extremity POST-OPERATIVE DIAGNOSIS: G90.522 Complex regional pain syndrome type 1 of left lower extremity ATTENDING PHYSICIAN: Alex Sanchez MD,PhD LEASE EXAMINER: Fellow Aleta Rebollar ANESTHESIA: Sedation delivered by [...] sedation. Ms. Farah was escorted to the [facility] Procedure R oom, where she was positioned [...] Ms. Farah was transported to the [facility] post-procedure recovery area where she made an uneventful recovery. Programming was performed in the PACU with aid of the device payable representative and Ms. Susie faust was sent home with a few programs . This was a unilateral procedure. Alex Sanchez MD,PhD was present for the entire procedure. Images were saved, and sent to [employer]. Ms. Farah was transported to the [facility] post-procedure recovery area. She had an uneventful recovery. Before the procedure, Ms. Farah's pain was 7/10. After the procedure Ms. Farah's pain was 7/10. I, Sonia Key, am functioning as a scribe for Aleta Rebollar MD. I have reviewed and verified the above scribed note of my visit with this patient as record ed by Sonia Key. Aleta Rebollar MD PAIN CENTER AT [facility] [address]TH [address] [facility] Mail Code: [address] [address] documented in t his encounter Plan of Treatment Not on filedocumented as of this encounter Procedures + +--------+ + + + | Procedure Name | Priori | Date/Time | Associated Diagnosis | Comments | | | ty | | | | + +--------+ + + + | NM MOD SEDATION | Routin | 09/25/2018 | Complex regional | | | >=5YRS SAME MD/QUAL | e | 7:31 PM | pain syndrome type 1 | | | PROV; INIT 15 MIN | | PST | of left lower | | | | | | extremity | | + +--------+ + + + | NM PERCUT IMPLNT | Routin | 09/25/2018 | [...]
--- OUTSIDE RECORDS SUMMARY | ~2020-06-02 | XMS | Encounter Summary ---
Demographics + + + | Address | [address] | | | [place] [address] | + + + | Home Phone [...] Providers + +------+ + | Care Furniture Refinisher Name | Role | Phone | [...] Pharmacy | | | | | | [address] | | | | | | Loop [place], [place] | | | | | | [address] | | | | | | [phone] | | | +--------+ + + + [...]
--- OUTSIDE RECORDS SUMMARY | ~2020-06-02 | XMS | Encounter Summary ---
Demographics + + + | Address | [address] | | | [place] [address] | + + + | Home Phone [...] Providers + +------+ + | Care Restaurant Cook Name | Role | Phone | + +------+ + | Justo Vazquez MD | PCP | | + +------+ + Encounter Details +--------+ + + + + | Date | Type | Department | Care Team | Description | +--------+ + + + + | 12/07/ | Telephone | [facility] | Alex Sanchez, | | | 2019 | | Pain Center at | ,PhD [address] | | | | | [facility] | [address] | | | | | [address] | [place], [place] | | | | | [facility] | [address] | | | | | and Healing, | [phone] | | | | | | | | | | | Floor [place], [place] | | | | | | [address] | | | | | | [phone] | | | +--------+ + + + [...]
--- OUTSIDE RECORDS SUMMARY | ~2020-06-02 | XMS | Encounter Summary ---
Demographics + + + | Address | [address] | | | [place] [address] | + + + | Home Phone [...] Providers + +------+ + | Care Computer Graphic Designer Name | Role | Phone | + +------+ + | Justo Vazquez MD | PCP | | + +------+ + Encounter Details +--------+ + + + + | Date | Type | Department | Care Team | Description | +--------+ + + + + | 03/17/ | MyChart | [facility] | Yun Frey NP | Welcome | | 2017 | Encounter | Pain Center at | [address] | | | | | [facility] | [place], [place] | | | | | [address] | [address] | | | | | [place] [facility] | [phone] | | | | | and Healing, | | | | | | | | | | | | Floor [place], [place] | | | | | | [address] | | | | | | [phone] | | | +--------+ + + + [...]
--- OUTSIDE RECORDS SUMMARY | ~2020-06-02 | XMS | Encounter Summary ---
Demographics + + + | Address | [address] | | | [place] [address] | + + + | Home Phone [...] Team Providers + +------+ + | Care Division Engineer Name | Role | Phone | [...] | | Management | Complex | Alex Alab, | Alex Alba, | | | | | regional | ,PhD [address] | ,PhD [address] | | | | | pain | [address] | | | | | syndrome | [facility] | [facility] | | | | | type 1 of | Rd | Rd [place], | | | | | left lower | [facility] [place] | [place] | | | | | extremity | [address] | [address] | | | | | Muscle pain | Phone: | Phone: | | | | | Procedures | [phone] | [phone] | | | | | REQUEST TO | Fax: | Fax: | | | | | SURGERY | [phone] | [phone] | | | | | CFO CONTROLLER | | | +--------+---------+ + + + [...] | syndrome | [address] | [address] | | | | | type 1 of | Rd | Rd [place], | | | | | left lower | [place], [place] | [place] | | | | | extremity | [address] | [address] | | | | | Muscle pain | Phone: | Phone: | | | | | Procedures | [phone] | [phone] | | | | | REQUEST TO | Fax: | Fax: | | | | | SURGERY | [phone] | [phone] | | | | | CFO CONTROLLER | | | | | | | [place] INJ,ANES | | | | | | | AGENT,SCIATI | | | | | | | C | | | | | | | NERVE,SINGLE | | | | | | | [place] INJECT | | | | | | | NERV | | | | | | | BLCK,OTHR | | | | | | | PERIPH NERV | | | | | | | [place] SONO | | | | | | | GUIDE FOR | | | | | | | NEEDLE | | | | | | | PLACEMENT | | | | | | | [place] MOD | | | | | | | SEDATION | | | | | | | >=5YRS SAME | | | | | | | MD/QUAL | | | | | | | PROV; INIT | | | | | | | 15 MIN [place] | | | | | | [...] | | | | | Procedures | [facility] [place] | [facility], | | | | | CONSULT TO | [address] | [place] | | | | | PAIN | | [address] | | | | | MANAGEMENT | | Phone: | | | | | | | [phone] | | | | | | | Fax: | | | | | | | [phone] | +--------+--------+ + + + + Encounter Details +--------+---------+ + + + | Date | Type | Department | Care Team | Description | +--------+---------+ + + + | 12/14/ | Office | [facility] | Alex Sanchez, | Complex regional | | 2018 | Visit | Pain Center at | ,PhD [address] | pain syndrome type 1 | | | | [facility] | [facility] [address] | of left lower | | | | [address] | [place], [place] | extremity (Primary | | | | [facility] | [address] | Dx); Muscle pain; | | | | and Healing, | [phone] | Pain of upper | | | | | | abdomen | | | | Floor [place], [place] | | | | | | [address] | | | | | | [phone] | | | +--------+---------+ + + + [...] the time to see us in the [facility]. It was great to [...] make sure this is scheduled with the Print Support Specialist. PRE-PROCEDURE INSTRUCTIONS 1. Please bring a otr driver with you as we may give you medications that impair your ability to drive. This is necessary even if you do not receive sedation. You may take a taxi or [employer] if you are accompanied by a responsible [...] or blood thinning medications (other than aspirin), hospital for special surgery doctor who is doing your procedure will communicate with the provider who is prescribing y our anticoagulant therapy. If you do not have clear instructions on what to do with your an ticoagulant by 2 weeks before your procedure, please contact [facility] to cl arify your instructions. The phone number for questions or concerns is [phone]. documented in this encounter Progress Notes Charline [...] M D,PhD - 12/14/2017 10:25 AM PST [facility] Return Visit Date: 12/14/2017 Chief Complaint Patient presents with Back pain Low back pain Abdominal pain Pain in right leg Pain in left leg History of Present Illness: Tracie Farah is a 27 year old female, whose last appoi ntment at the [facility] was October 11, 2017, for a clinic [...] review treatment plan. * Follow up with [facility] as needed. Today, she [...] was treated by Christie Madrid MD in [place], [place] for three years before she abruptly ended her practice due to illness. This left her without a doctor to help her manage her chronic pain. In addition to her CRPS symptoms (diagnosed 2010), she has some sto mach issues that she has been working with Ilene Childs DNP, COTTON TIPPER-C. She has a scar on her stomach [...] a lot of great improvements while in [place], [place]. Weaning her off of the narcotic [...] her medical history that she spent in [place], [place] where she part ook in a [...] Spinal cord stimulator trial - Nerve blocks JAILOR Brief Pain Inventory: (ten= worst possible pain [...] Hemroidectomy Trial spinal cord stimulator leads 08/02/2012 [facility], Surgeon: Janak Riojas MD Cholecystectomy [...] History Social History Narrative Single. Goes to [employer] with a light load. Has been working at [employer], can' t work on crPhonologics. Has roommates. Allergies Allergen Reactions Morphine Anaphylaxis [...] by physician. Concentration is 150mg/mL. Compounded by [facility] ) LAMOTRIGINE 200 MG TABLET Take [...] GRAM SOLUTION Take as directed by [facility] Digestive [facility]- 2 [...] and summary of old medical records (source: lensgen), as summarized in the body of the [...] to her by Christie Madrid MD in [place], [place]. As she has since left the [...] I jacqueline poon spoken with our medical reception specialist, Evelia Gonzalez MD who agrees that as [...] peripheral nerve stimulation. As she lives in [place], [place] with her family (3.5 hours away), [...] by Sonia Key. Alex Sanchez MD PhD Under Seal Operator Anesthesiology and Pain Management [facility] Post visit: I [...] + | [facility] | [address] | [place] [address] | | | SERVICES, CORE | GUILLERMO [...]
--- OUTSIDE RECORDS SUMMARY | ~2020-06-02 | XMS | Encounter Summary ---
Demographics + + + | Address | [address] | | | [place] [address] | + + + | Home Phone [...] Team Providers + +------+ + | Care Coconut Candy Maker Name | Role | Phone | [...] | | Pain | Complex | Ilene, CYBER SYSTEMS ADMINISTRATOR | Hanna M, | | | | Management | regional | [address] | PSY D [address] | | | | | pain | Ave | [address] | | | | | syndrome | [place], [place] | [place], [place] | | | | | type 1 of | [address] | [address] Phone: | | | | | left lower | Phone: | [phone] | | | | | extremity | [phone] | Fax: | | | | | Intractable | Fax: | [phone] | | | | | cyclical | [phone] | | | | | | vomiting [...] | | | | | | [place] | | | | | | | PSYCHIATRIC | | | | | | | DIAGNOSTIC | | | | | | | EVAL, NO MED | | | | | | | SVCS [place] | | | | | | | PSYCH TSTNG | | | | | | | PSYCH/PHYS | | | | | | | [place] | | | | | | [...] Pain Medicine | Diagnoses | Chasity, | Gastroenterology Professor Chh1 | | | | / Pain | Abdominal | MD Kenny | [address] | | | | Management | pain, | [address] [facility] | [facility] | | | | | unspecified | [facility] | for Health | | | | | location | Rd | and Healing, | | | | | Procedures | [place], [place] | [facility] | | | | | CONSULT TO | [address] | 1,15th Floor | | | | | PAIN | | [facility] [place] | | | | | MANAGEMENT | | [address] | | | | | | | Phone: | | | | | | | [phone] | | | | | | | Fax: | | | | | | | [phone] | +--------+--------+ + + + + Encounter Details +--------+---------+ + + + | Date | Type | Department | Care Team | Description | +--------+---------+ + + + | 04/25/ | Office | [facility] | Ilene Bright, | Abdominal pain, | | 2017 | Visit | Pain Center at | CYBER SYSTEMS ADMINISTRATOR [address] | unspecified location | | | | [facility] | [place], [place] | (Primary Dx); | | | | [address] | [address] | Complex regional | | | | [place] for [facility] | [phone] | pain syndrome type 1 | | | | and Healing, | | of left lower | | | | Building 1[address]15 | | extremity; | | | | Floor [place], [place] | | Intractable cyclical | | | | [address] | | vomiting with | | | | [phone] | | nausea; | | | | [...] encounter Patient Instructions Patient Instructions Ilene Bright, CYBER SYSTEMS ADMINISTRATOR - 04/25/2017 1:35 PM PDTKelly, Nice to [...] Freddie Guadalupe MD [email or web address] Ilene Childs DNP, CYBER SYSTEMS ADMINISTRATOR-C Adult Pain Service /[facility] [address] [place] [address] documented in this encounter Progress Notes Ilene Bright FNP - 04/25/2017 1:35 PM PDTFormatting of this note might be different fr om the original. Date: 04/25/2017 was referred for pain management consultation by Kenny Gaspar MD [address] [place] [address] Reason for consult: abdominal pain Chief Complaint Patient presents with Abdominal pain Back pain History of Present Illness: Tracie Farah is a 26 year old female with a history of depression, complex regional pain syndrome (left lower extremity) for this she follows with a neurologist at [facility] in [facility]. She has been stable on her [...] (works better) Just started her on Celebrex (fci option) Intranasal ketamine Lamotrigine Memantine Ibuprofen Cymbalta 20 mg BID Cyclobenzaprine Her nonmedication treatment has not included acupuncture, etc due to limited income. She feels that the most effective treatments include: medication (toradol). lives in [place], [place] alone and with her children. She receives disability. does not have specific goals for today's appointment. 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 Goes to [employer] with a light load. Has been working at [employer], can' t work on crGlucoSentient. Has roommates. Allergies Allergen Reactions Morphine Anaphylaxis [...] by physician. Concentration is 150mg/mL. Compounded by [facility] ) LAMOTRIGINE 200 MG TABLET Take [...] ENTEROGRAPHY ABDOMEN AND PELVIS WWO CONTRAST Order: [id number] Performed: 01/31/2017 4:34 PM Status: Final result [...] 3:50 PM X-RAY ABDOMEN 1 VIEW Order: [id number] Performed: 03/19/2017 6:52 AM Status: Final result [...] and summary of old medical records (source: freshbag), as summarized in the body of the [...] possible opioid-sparing effects (Stevie Paulino et al.C [employer], (8):1655-70, 2007) and evidence that it can [...] TERESA-C Adult Pain Service /[facility] [address] [place] [address] Display Progress Note in MyChart: No documented [...]
--- OUTSIDE RECORDS SUMMARY | ~2020-06-02 | XMS | Encounter Summary ---
Demographics + + + | Address | [address] | | | [place] [address] | + + + | Home Phone [...] + +------+ + | Care Fire Investigation Lieutenant Name | Role | Phone [...] | | 2019 | Event | [facility] | MD Juan [address] | | | | | and Healing Surgery | [address] | | | | | Center Admitting | [place], [place] | | | | | Desk Located on the | [address] | | | | | 4th floor [address] | [phone] | | | | | [address] [place], | | | | | | [place] [address] | Arben Valerio MD | | | | | | [address] | | | | | | [address] | | | | | | [place], [place] | | | | | | [address] | | | | | | [phone] | | | | | | | [...]
--- OUTSIDE RECORDS SUMMARY | ~2020-06-02 | XMS | Encounter Summary ---
Demographics + + + | Address | [address] | | | [place] [address] | + + + | Home Phone [...] + +------+ + | Care Instant Potato Processor Name | Role | Phone | + +------+ + | Justo Vazquez MD | PCP | | + +------+ + Encounter Details +--------+ + + + + | Date | Type | Department | Care Team | Description | +--------+ + + + + | 03/18/ | Telephone | [facility] | Kenny Gaspar MD | | | 2017 | | [place] [address] [address] | | | | | | [address] [facility] | | | | | | for Health and | | | | | | [facility], [address] | | | | | | [place], [place] | | | | | | [address] | | | | | | [phone] | | | +--------+ + + + [...]
--- OUTSIDE RECORDS SUMMARY | ~2020-06-02 | XMS | Encounter Summary ---
Demographics + + + | Address | [address] | | | [place] [address] | + + + | Home Phone [...] Team Providers + +------+ + | Care Seating Upholsterer Name | Role | Phone | + [...] 2016 | | Pain Center at | CASTING WHEEL OPERATOR HELPER [address] | | | | | [facility] | [place], [place] | | | | | [address] | [address] | | | | | [facility] | [phone] | | | | | and Healing, | | | | | | Building | | | | | | [place], [place] | | | | | | [address] | | | | | | [phone] | | | +--------+ + + + [...]
--- OUTSIDE RECORDS SUMMARY | ~2020-06-02 | XMS | Encounter Summary ---
Demographics + + + | Address | [address] | | | [place] [address] | + + + | Home Phone [...] Team Providers + +------+ + | Care Twister Hand Name | Role | Phone | [...]
--- OUTSIDE RECORDS SUMMARY | ~2020-06-02 | XMS | Encounter Summary ---
Demographics + + + | Address | [address] | | | [place] [address] | + + + | Home Phone [...] Providers + +------+ + | Care Supervisor Aircraft Cleaning Name | Role | Phone | + [...] Rd | | | | | | [place], [place] | | | | | | [address] | | | +--------+ + + + [...]
--- OUTSIDE RECORDS SUMMARY | ~2020-06-02 | XMS | Encounter Summary ---
Demographics + + + | Address | [address] | | | [place] [address] | + + + | Home Phone [...] Providers + +------+ + | Care Cnc Machine Programmer Name | Role | Phone | [...] | | | | | extremity | [address] | [address] | | | | | Muscle pain | Phone: | Phone: | | | | | Procedures | [phone] | [phone] | | | | | REQUEST TO | Fax: | Fax: | | | | | SURGERY | [phone] | [phone] | | | | | DRY KILN WORKER | | | | | | | [...] 12/27/ | Procedure | Pain Center at [facility] | Alex Sanchez, | Pain in left leg; | | 2017 | | [address] | ,PhD [address] | Procedure | | | | Center for Health | [facility] | | | | | and Healing, | [place], [place] | | | | | [facility] | [address] | | | | | [place], [place] | [phone] | | | | | [address] | | | | | | [phone] | | | +--------+ + + + [...] note mi nayelit be [facility] Patient Instructions - Post Interventional Procedure Date: 12/27/2017 Name: Tracie Farah Date of : 1990 Procedure Performed: trigger point injection and popliteal/sciatic block. Procedure Provider: Alex Sanchez MD,PhD If you have any problems you believe are associated with your procedure tonight, Please call the Hospital Business Process Modeler, and ask for the Pain Management Consu ltant. If you have problems or questions between 9:00 am and 4:00 pm, Please call the [facility] Pain Center Nurse Triage Line, [...] paper. Please fax the pain diary to [phone] or attach a scanned image of it to a [employer] message to your doct or.. The area [...] to the larry ent. David Linares MD [facility] documented in this encounter Progress Notes Alex Sanchez MD,PhD - 12/27/2017 3:00 PM PSTI was present for the entire procedure ( popliteal nerve block and abdominal scar neuroma injection) and all bocanegra elements of this vis it. I reviewed the documentation of the other CLINICAL ASSISTANT PROFESSOR providers and concur with Dr. Linares's findings. I edited his note. Alex Sanchez MD,PhD Green Building Materials Designer Anesthesiology and Pain Management [facility] David Pennington MD - 12/27/2017 3:00 PM PSTPROVIDER OPERATIVE NOTE Date: December 27, 2017 Location: [facility] Procedure Room Tracie Farah [id number] :1990, presents to clinic for: PROCEDURE: Popliteal/sciatic [...] scar neuroma ATTENDING PHYSICIAN: Alex Sanchez MD,PhD WHEAT GROWER: Fellow David Linares MD ANESTHESIA: sedation Isadora [...] sedation. Ms. Farah was escorted to the [facility] Procedure R oom, where she [...] procedure. Images were saved, and sent to [facility]. Ms. Farah was transported to the [facility] Comprehensive Pain Center post-procedure recovery area. [...] by physician. Concentration is 150mg/mL. Compounded by [facility] ) LEVONORGESTREL 20 MCG/24 HR (5 [...] as directed by [facility] Digestive [facility]- 2 gallon bowel prep POLYETHYLENE GLYCOL [...] PRE-SEDATION: Date: December 27, 2017 Tracie Farah [id number] 1990 ALLERGIES: Morphine Previous reaction to Sedation/Analgesia: [...] ride here with you? yes Who?: mother RN/GLASS SETTER History: 1. Has your pain changed from [...] Date: December 27, 2017 Tracie Ocampojulita Farah [id number] 1990 See RN /GLASS SETTER Pre-Sedation Note. IV ACCESS:Right subc PAC. BASELINE VS: See Sedation Flow Sheet. Tracie Donaldson Sofi [id number] 1990, presents to clinic for: Procedure: left [...] started. 1530 Midazolam 2mg IV given 1530 [id number] mcg IV given 1534 Midazolam 1mg IV given 1546 Midazolam 1mg IV given 1546 [id number] mcg IV given 1548 Fentanyl 100 mcg IV given bupivacaine 0.5%, 9mL given, 21mL wasted Kenalog 40mg/mL 1mL, 0 mL wasted 1555 abdominal scar trigger point completed. 1558 Fentanyl 50 mcg IV given 1601 Fentanyl 50 mcg IV given Haskins placed for Popliteal Nerve Block.. Placement verified [...] + +--------+ + + + | NE INJECTION(S), | Routin | 12/27/2017 | Complex [...] + + documented in this encounter Results CLINICAL ASSISTANT PROFESSOR MISC PROCEDURE (12/27/2017 3:28 PM PST) + [...]
--- OUTSIDE RECORDS SUMMARY | ~2020-06-02 | XMS | Encounter Summary ---
Demographics + + + | Address | [address] | | | [place] [address] | + + + | Home Phone [...] Team Providers + +------+ + | Care Organic Section Technical Lead Name | Role | Phone | + +------+ + | Justo Vazquez MD | PCP | | + +------+ + Encounter Details +--------+ + + + + | Date | Type | Department | Care Team | Description | +--------+ + + + + | 12/05/ | Procedure | [facility] | | | | 2019 | Pass | [facility] [facility] | | | | | | and Healing Surgery | | | | | | Center Admitting | | | | | | Desk Located on the | | | | | | 4th floor [address] | | | | | | [address] [place], | | | | | | [place] [address] | | | +--------+ + + + [...]
--- OUTSIDE RECORDS SUMMARY | ~2020-06-02 | XMS | Encounter Summary ---
Demographics + + + | Address | [address] | | | [place] [address] | + + + | Home Phone [...] Team Providers + +------+ + | Care Valve Mechanic Name | Role | Phone | [...] | | syndrome | [place] | [facility] | | | | | type 1 of | Rd | Rd [place], | | | | | left lower | [place], [place] | [place] | | | | | extremity | [address] | [address] | | | | | Procedures | Phone: | Phone: | | | | | REQUEST TO | [phone] | [phone] | | | | | SURGERY | Fax: | Fax: | | | | | BEAMING MACHINE OPERATOR | [phone] | [phone] | +--------+---------+ + + + + Encounter Details +--------+---------+ + + + | Date | Type | Department | Care Team | Description | +--------+---------+ + + + | 09/28/ | Office | [facility] Comprehensive | Yun Frey, INHALATION THERAPY AIDES TEACHER | Complex regional | | 2018 | Visit | Pain Center at | [address] | pain syndrome type 1 | | | | [place] | [place], [place] | of left lower | | | | [address] | [address] | extremity (Primary | | | | [facility] for [facility] | [phone] | Dx); Arthralgia of | | | | and Healing, | | left lower leg | | | | | | | | | | [place], [place] | | | | | | [address] | | | | | | [phone] | | | +--------+---------+ + + + [...] Dr. Sanchez on 10/02/2018. -Please contact the [facility]'s rep if you have any further question [...] PM PST September 28, 2018 Tracie Farah [id number] [facility] Pain Center Return Visit Chief [...] and a pain drawing which I reviewed. [facility] Questionnaire Follow-up Patient 10/10/2017 Please describe [...] PROCEDURE: DRG Spinal Cord Stimuation Trial with [employer]. [place]igster system LEVEL/LATERALITY: left L4, L5. Till date, [...] turned up to 7%. After seeing th manufacturing sales representative today and killian ing adjustments, [...] Hemroidectomy Trial spinal cord stimulator leads 08/02/2012 [facility], Surgeon: Janak Riojas MD [...] the vein (IV) every eight hour s. 3281-0544-77 COMPOUNDED MED RX CONTROLLED (SEE ADMIN INSTRUCT [...] by physician. Concentration is 150mg/mL. Compounded by [facility] ) KETOROLAC IM Inject into the [...] (IV) every twel ve hours as needed. 9620-6781-55 ONDANSETRON 4 MG DISINTEGRATING TABLET Dissolve 1 tablet in mouth every twelve hours as nee ded. PANTOPRAZOLE 40 MG TABLET,DELAYED RELEASE Take 40 mg by mouth once daily. PEG 3350-ELECTROLYTES 236 GRAM-22.74 GRAM-6.74 GRAM-5.86 GRAM SOLUTION Take as directed by [facility] Digestive [facility]- 2 gallon bowel prep POLYETHYLENE [...] been given programming opti ons by the [employer] device manufacturing sales representative, Michele. At this time, there is no complication from the DRG trial. Recommendations/Plan: 1. Recommend to keep her appointment with Dr. Sanchez on 10/02/2018. 2. To contact the [employer]'s rep if she has any further question on programming. 09/28/2018: I, Dayana Ivan, am functioning as a medical insurance coding specialist for Yun Frey NP. I have reviewed and verified the above scribed note of my visit with this patient as record ed by Ms. Dayana Ivan. Jeanine Frey (Mr.) MSN, ACNP- Nurse Practitioner Acute Pain Service /[facility] [address] [place] [id number] documented in this enco unter Plan of [...]
--- OUTSIDE RECORDS SUMMARY | ~2020-06-02 | XMS | Encounter Summary ---
Demographics + + + | Address | [address] | | | [place] [address] | + + + | Home Phone [...] Team Providers + +------+ + | Care Horticultural Nursery Assistant Name | Role | Phone | [...] 08/03/ | Refill | [facility] | Alex Sanchez, | Refill Request | | 2018 | | Pain Center at | ,PhD [address] [facility] | (ketamine) | | | | [facility] | [facility] | | | | | [address] | [place], [place] | | | | | [facility] | [address] | | | | | and [place], | [phone] | | | | | [facility] | | | | | | Floor [place], [place] | | | | | | [address] | | | | | | [phone] | | | +--------+--------+ + + + [...]
--- OUTSIDE RECORDS SUMMARY | ~2020-06-02 | XMS | Encounter Summary ---
Demographics + + + | Address | [address] | | | [place] [address] | + + + | Home Phone [...] Team Providers + +------+ + | Care Area Manager Name | Role | Phone | + +------+ + | Justo Vazquez MD | PCP | | + +------+ + Encounter Details +--------+ + + + + | Date | Type | Department | Care Team | Description | +--------+ + + + + | 07/28/ | Documentati | [facility] | Ilene Bright, | | | 2017 | on | Pain Center at | ELECTROSTATIC POWDER COATING TECHNICIAN [address] | | | | | [facility] | [facility] [place] | | | | | [address] | [address] | | | | | [place] [facility] | [phone] | | | | | and Healing, | | | | | | | | | | | | Floor [place], [place] | | | | | | [address] | | | | | | [phone] | | | +--------+ + + + [...]
--- OUTSIDE RECORDS SUMMARY | ~2020-06-02 | XMS | Encounter Summary ---
Demographics + + + | Address | [address] | | | [place] [address] [...] Providers + +------+ + | Care Instructor Hairspring Name | Role | Phone | + +------+ + | Justo Vazquez MD | PCP | | + +------+ + Encounter Details +--------+ + + + + | Date | Type | Department | Care Team | Description | +--------+ + + + + | 03/18/ | Telephone | [facility] | Kenny Gaspar MD | | | 2017 | | [place] [address] [address] | | | | | | [address] [facility] | | | | | | for Health and | | | | | | [facility], Building [address] | | | | | | [place], [place] | | | | | | [address] | | | | | | [phone] | | | +--------+ + + + [...]
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
--- OUTSIDE RECORDS SUMMARY | ~2020-06-02 | XMS | Encounter Summary ---
Demographics + + + | Address | [address] | | | [place] [address] | + + + | Home Phone [...] Providers + +------+ + | Care Corn Chip Maker Name | Role | Phone | [...] | | | | regional | ,PhD [address] | | | | | | pain | [address] | | | | | | syndrome | [address] | | | | | | type 1 of | Rd | | | | | | left lower | [place], [place] | | | | | | extremity | [address] | | | | | | Procedures | Phone: | | | | | | PHYSICAL | [phone] | | | | | | THERAPY | Fax: | | | | | | REFERRAL | [phone] | | +--------+--------+ + + + + Encounter Details +--------+ + + + + | Date | Type | Department | Care Team | Description | +--------+ + + + + | 01/22/ | Telephone | [facility] | Alex Sanchez, | | | 2019 | | Pain Center at | ,PhD [address] [facility] | | | | | [facility] | [facility] | | | | | [address] | [place], [place] | | | | | [facility] | [address] | | | | | and [place], | [phone] | | | | | | | | | | | Floor [place], [place] | | | | | | [address] | | | | | | [phone] | | | +--------+ + + + [...]
--- OUTSIDE RECORDS SUMMARY | ~2020-06-02 | XMS | Encounter Summary ---
Demographics + + + | Address | [address] | | | [place] [address] | + + + | Home Phone [...] Team Providers + +------+ + | Care Apron Operator Name | Role | Phone | [...] | 2017 | | Center at [facility] [address] | | Review | | | | [facility] | | | | | | for Health and | | | | | | [facility] | | | | | | [place], [place] | | | | | | [address] | | | | | | [phone] | | | +--------+ + + + [...]
--- OUTSIDE RECORDS SUMMARY | ~2020-06-02 | XMS | Encounter Summary ---
Demographics + + + | Address | [address] | | | [place] [address] | + + + | Home Phone [...] Providers + +------+ + | Care Forest Fire Warden Name | Role | Phone | [...] Pain Medicine | Diagnoses | Chasity | Sound Person Chh1 | | | | / Pain | Abdominal | MD Kenny | [address] | | | | Management | pain, | [address] | [facility] | | | | | unspecified | [facility] | for Health | | | | | location | Rd | and Healing, | | | | | Procedures | [place], [place] | Building | | | | | CONSULT TO | [address] | 1,15th Floor | | | | | PAIN | | [place], [place] | | | | | MANAGEMENT | | [address] | | | | | | | Phone: | | | | | | | [phone] | | | | | | | Fax: | | | | | | | [phone] | +--------+--------+ + + + + Encounter Details +--------+---------+ + + + | Date | Type | Department | Care Team | Description | +--------+---------+ + + + | 07/11/ | Office | [facility] | Ilene Bright, | Pain of upper | | 2017 | Visit | Pain Center at | CHEMICAL MANAGER [address] | abdomen (Primary | | | | [place] | [place], [place] | Dx); Intractable | | | | [address] | [address] | cyclical vomiting | | | | [facility] | [phone] | with nausea; | | | | and Healing, | | Irritable bowel | | | | Building | | syndrome with | | | | Floor [place], [place] | | constipation; | | | | [address] | | Complex regional | | | | [phone] | | pain syndrome type 1 | [...] and determine next steps. Ilene Childs DNP, CHEMICAL MANAGER-C Adult Pain Service /[facility] [address] [place] [address] documented in this encounter Progress Notes [place] Bright FNP - 07/11/2017 1:35 PM PDTFormatting of this note might be different fr om the original. [email or web address] Pain Center Return Visit Date: 07/11/2017 Chief [...] [facility] the [facility]. She has also changed her [...] her abdominal pain an d associated symptoms. [facility] QUESTIONNAIRE BRIEF PAIN 07/11/2017 Please rate [...] has interfered with your sleep : 5 [facility]OP[facility] Questionnaire Follow-up Patient 07/11/2017 Please describe the [...] History Social History Narrative Single. Goes to [employer] with a light load. Has been working at [employer], can' t work on [employer]. Has roommates. Allergies Allergen Reactions Morphine [...] by physician. Concentration is 150mg/mL. Compounded by [facility] ) LAMOTRIGINE 200 MG TABLET Take [...] and summary of old medical records (source: [employer]), as summarized in the body of the [...] Shantel Salinas, am functioning as a medical record consultant for TERESA Clark DNP-C I have reviewed and verified the above scribed note of my visit with this patient as record ed by Shantel Salinas. Ilene Childs DNP, TERESA-C Adult Pain Service /[facility] [address] [place] [address] Addendum: I paged Dr. Les Gaspar. He was out of the clinic, I spoke with the covering provider and sha dandre Tracie's request for food allergy testing. Since Tracie thinks her pain and vomiting may b e triggered by gluten, covering provided ordered appropriate workup, which I communicated to Tracie and the the lab in [place], [place]. She will followup with me and GI once these results are available. [place] Childs DNP, CHEMICAL MANAGER-C Adult Pain Service /[facility] [address] [place] [address] documented in this e ncounter Plan of [...]
--- OUTSIDE RECORDS SUMMARY | ~2020-06-02 | XMS | Encounter Summary ---
Demographics + + + | Address | [address] | | | [place] [address] | + + + | Home Phone [...] Providers + +------+ + | Care In Home Tutor Name | Role | Phone | [...] | [facility] | Aleta Rebollar MD [address] | Nausea | | 2018 | | Pain Center at | [address] | | | | | [facility] | [place], [place] | | | | | [address] | [address] | | | | | [place] for Health | [phone] | | | | | and Healing, | | | | | | Building | | | | | | [place], [place] | | | | | | [address] | | | | | | [phone] | | | +--------+ + + + [...]
--- OUTSIDE RECORDS SUMMARY | ~2020-06-02 | XMS | Encounter Summary ---
Demographics + + + | Address | [address] | | | [place] [address] | + + + | Home Phone [...] Team Providers + +------+ + | Care Bookkeeper Name | Role | Phone | + +------+ + | Justo Vazquez MD | PCP | | + +------+ + Encounter Details +--------+ + + + + | Date | Type | Department | Care Team | Description | +--------+ + + + + | 01/06/ | Document-Ma | [facility] | Alex Sanchez, | | | 2018 | annemily | Pain Center at | ,PhD [address] | | | | | [facility] | [facility] [address] | | | | | [address] | [place], [place] | | | | | [facility] | [address] | | | | | and Healing, | [phone] | | | | | | | | | | | Floor [place], [place] | | | | | | [address] | | | | | | [phone] | | | +--------+ + + + [...]
--- OUTSIDE RECORDS SUMMARY | ~2020-06-02 | XMS | Encounter Summary ---
Demographics + + + | Address | [address] | | | [place] [address] | + + + | Home Phone [...] Team Providers + +------+ + | Care Broker Associate Name | Role | Phone | [...] Visit | Medicine Clinic at | R, DIRECTOR OF PSYCHIATRY [address] [facility] | (Primary Dx); | | | | [facility] | [address] | Complex regional | | | | [address] | [place], [place] | pain syndrome type 1 | | | | [facility] | [address] | of left lower | | | | and Healing, | [phone] | extremity; Cyclic | | | | Building 2 | | vomiting syndrome, | | | | [place], [place] | | intractability of | | | | [address] | | vomiting not | | | | [phone] | | specified, presence | | | [...] Port/P | Right; Chest portacath | 03/18/17 6740 by | | | ortaca | | [...] sit, stand or walk. Surgery check-in location: [facility] Day Stay - [place] [facility] and [facility], 4th floor Surgery Check in Time: [...] it is after office hours, call the [facility] package yarns drying machine operator at [phone] and ask them to page him or h er. documented in this encounter Progress Notes Catie Smart NP - 11/27/2018 2:05 PM PST PREOPERATIVE CONSULT NOTE Author: Catie Smart NP Referring Physician: Alex Sanchez MD Primary Care Provider: Justo Vazquez MD Reason for Consult: Preoperative evaluation and risk assessment Proposed Procedure/Date: implant SCS; 12/05/2018 Proposed Procedure Location: [facility] HISTORY OF PRESENT ILLNESS: Tracie [...] renal failure no electrolyte abnormalities no dialysis Urology/Remote Sensing Technician: Interstitial cystitis LMP: irreg bleeding, ~11/14/2018, [...] oral recon soln Take as directed by [facility] ETC Education Oxyrane [facility]- 2 gallon bowel prep polyethylene [...] patient is a lso currently scheduled at [facility] [place] and is meeting inclusion [...] to this patient's care. Catie Smart NP [facility] PBB PREOPERATIVE MEDICINE CLINIC AT [facility] 4TH FLOOR [address] [facility] [address] I advised the patient regarding [...]
--- OUTSIDE RECORDS SUMMARY | ~2020-06-02 | XMS | Encounter Summary ---
Demographics + + + | Address | [address] | | | [place] [address] | + + + | Home Phone [...] | Procedures | [place] | [facility], | | | | | CONSULT TO | [address] | [place] | | | | | PAIN | | [address] | | | | | MANAGEMENT | | Phone: | | | | | | | [phone] | | | | | | | Fax: | | | | | | | [phone] | +--------+--------+ + + + + Encounter Details +--------+---------+ + + + | Date | Type | Department | Care Team | Description | +--------+---------+ + + + | 04/23/ | Office | Pain Center at [facility] | Alex Sanchez, | Complex regional | | 2019 | Visit | [address] | ,PhD [address] | pain syndrome type 1 | | | | Center for [facility] | [address] | of left lower | | | | and Healing, | [place], [place] | extremity (Primary | | | | Building | [address] | Dx); Other chronic | | | | Floor [place], [place] | [phone] | pain ; S/P insertion | | | | [address] | | of spinal cord | | | | [phone] | | stimulator | +--------+---------+ + + [...] the lab on the 1st floor of [facility] to provide a urine sample for [...] [facility] signed by Alex Sanchez MD,PhD at [...] Aleta Lam MD - 1:00 PM PDT [facility] Return Visit Date: 04/23/2019 Chief [...] leg pain due to the boone that [facility] has in place. She is looking into [...] - DRG Spinal cord stimulator trial with [employer] system (09/25/2018) with 30-40% im provement of typical pain with significant improvement in mobility and function - Left popliteal/sciatic nerve injection AND abdominal scar trigger point injection ( 018) - Spinal cord stimulator trial with [employer] system by Janak Riojas MD (08/02/2012) - Left L3 lumbar sympathetic block by Janak Riojas MD (03/01/2012) Opioid Risk Tool (ORT) 04/23/2019 [facility] Brief Pain Inventory: (ten= [...] Hemroidectomy Trial spinal cord stimulator leads 08/02/2012 [employer], Surgeon: Janak Riojas MD Cholecystectomy Appendectomy Other [...] History Social History Narrative Single. Goes to [employer] with a light load. Has been working at [employer], can' t work on [employer]. Has roommates. Allergies Allergen Reactions Morphine [...] with nausea Abdominal pain Abdominal scar neuroma [facility] CLINICAL PROTOCOL PATIENT (CLN[employer]) - Implanted [...] and summary of old medical records (source: [employer]), as summarized in the body of the [...] We performed DRG SCS trial with the [employer] System on 09/25/2018 which provided her with [...] ago. She has not spoken with the [employer] representatives about this. I encouraged her to [...] Aleta Rebollar MD PAIN CENTER AT [facility] 15TH FLOOR [address] [facility] Mail Code: Ch15[place] [phone] do cumented in this encounter Plan of [...] [facility] | [address] | [place] [address] | | | SERVICES, CORE | GUILLERMO [...]
--- OUTSIDE RECORDS SUMMARY | ~2020-06-02 | XMS | Encounter Summary ---
Demographics + + + | Address | [address] | | | [place] [address] | + + + | Home Phone [...] Providers + +------+ + | Care Environmental Research Scientist Name | Role | Phone [...] | | | regional | [place] | [address] | | | | | pain | FAMILY | [employer]stop | | | | | syndrome), | MEDICINE P | [address]334 | | | | | lower limb | [address] | [place], [place] | | | | | Pain in | [place], | [address] | | | | | joint, lower | [place] [address] | Phone: | | | | | leg | Phone: | [phone] | | | | | Procedures | [phone] | Fax: | | | | | REQUEST TO | Fax: | [phone] | | | | | SURGERY | [phone] | | | | | | SUPERVISOR [employer]IN [employer]ANT | | | +--------+--------+ + + + + Encounter Details +--------+ + + + + | Date | Type | Department | Care Team | Description | +--------+ + + + + | 08/02/ | Procedure | Pain Center at [facility] | Dale Cantu, | Procedure; | | 2011 | | [address] | [address] | Injection; Procedure | | | | [facility] | [facility] [id number] | | | | | and Healing, | [place], [place] | | | | | [facility] | [address] | | | | | Floor [place], [place] | [phone] | | | | | [address] | | | | | | [phone] | | | +--------+ + + + [...] e might be different from the original. [facility] Pain Center Patient Instructions - Post Spinal Cord Stimulator Trial Date: 08/02/2012 Name: Tracie Farah Date of : 1990 Procedure Performed: SCS TRIAL LUMBAR [facility] Procedure Provider: Dale Cantu [facility] Procedure Rm If you have any problems you believe are associated with your procedure tonight, Please call the Hospital Plumbing Hardware Assembler, and ask for the Pain Management Consu ltant. If you have problems or questions between 9:00 am and 4:00 pm, Please call the [facility] Pain Center Nurse Triage Line, . If you go to an Emergency Room, please bring this form with you. DISCHARGE INSTRUCTIONS Call immediately and/or go to the Emergency department if any concerns about wound healing, fever, or chills. Also call for concerns about SCS function. During [facility] open hours, call the [facility] ([phone]), after hours call the dredge pipe operator at [facility] ([phone]) and ask for t he Adult Pain Service gas pumping station helper. Identify yourself as a Comprehensive Pain Center [...] the wounds, dressing, or SCS function. During [facility] o pen hours, call the F[facility]OR [facility]ICE WORK[facility] ([phone]), after hours call the dredge pipe operator at [facility] ([phone] ) and ask for the Adult Pain Service gas pumping station helper. Identify yourself as my patient with a concer n about postoperative recovery. If there are concerns about the SCS programming, contact t he territory account representative from the SCS assembler erector. If the stimulation is not covering your area o f pain, your SCS should be reprogrammed. Do not take any blood thinning medications during the trial. Instructions printed and reviewed with the patient. Copy of instructions given to Ms. Nemo renee. DALE CANTU MD [facility] Center documented in this encounter [...] and postoperative care instructions. DALE CANTU MD Outer Diameter Grinder, [facility] Pain Center Felt Coverer, Pain Medicine Professor, Anesthesiology & Perioperative Medicine Diana Arroyo RN - 08/02/2012 7:34 AM PDT PRE-SEDATION: Date: August 02, 2012 Tracie Farah [id number] 1990 ALLERGIES: Morphine Previous reaction to Sedation/Analgesia: MEDICATIONS: Current Outpatient Prescriptions Medication HYDROcodone-acetaminophen (NORCO) 10-325 mg Oral Tablet KETOROLAC TROMETHAMINE (TORADOL IM) levonorgestrel (MIRENA) 20 mcg/24 hr Intrauterine IUD LORazepam 1 mg Oral Tablet ondansetron (ZOFRAN) 8 mg Oral Tablet promethazine 25 mg Oral Tablet Meets NPO Guidelines. IV ACCESS: IV in Place IV Site [facility] 22 g @ 0655 BASELINE VS: See Sedation Flow Sheet. Tracie Donaldson [facility] [id number] 1990, presents to clinic for: Procedure: Spinal [...] 0732 - 0733: Midazol[place] 2 [place] [address]: Fentanyl 25 mcg IV 0740 - 0741: Midazolam 2 mg IV 0742: Procedure started 0743 - 0744: Fentanyl 50 mcg IV 0753-54: Fentanyl 25 mcg IV Lead # 1 placed Lead # 2 placed 0801: Stimulation started. 0829: Pt reports stimulation to usual areas of pain. Leads secured. 0845: Pt [facility] to [facility] in stable condition. IV dc'd. Evelia [...] OPERATIVE NOTE Date: August 02, 2012 Location: [facility] Procedure Room Tracie Farah [id number] :1990, presents to clinic for: PROCEDURE: Spinal Cord Stimuation Trial LEVEL/LATERALITY: midline lumbar PRE-OPERATIVE DIAGNOSIS: 355.71B CRPS (complex regional pain syndrome), lower limb 719.46 Pain in joint, lower leg 781.2Q Gait disturbance POST-OPERATIVE DIAGNOSIS: 355.71B CRPS (complex regional pain syndrome), lower limb 719.46 Pain in joint, lower leg 781.2Q Gait disturbance ATTENDING PHYSICIAN: Dale Cantu MD LEARNING AND DEVELOPMENT CONSULTANT: Fellow Bear Yost DO ANESTHESIA: sedation delivered [...] sedation. Ms. Farah was escorted to the [facility] Procedure Ro om, where she was positioned Prone on the examination table. TEAM PAUSE: The physician-led pause was conducted, and is documented in the Nursing note. Monitors were placed, including ECG, NIBP and SpO2. The skin was prepared with Chloroprep and sterile drapes were applied. [employer] system was used for this procedure. The company territory account representative was theresa knutson for the procedure. [...] pain. Ms. Farah was transported to the [facility] Comprehensive Pain Center post-procedure recovery area where she made an uneventful recovery. Images were saved, and sent to [employer]. Ms. Farah will have her next appointment [...] about wound healing or SCS function. During [facility] open hours, call the [facility] ([phone]), after h ours call the dredge pipe operator at [facility] ([phone]) and ask for the Adult Pain Service gas pumping station helper. Identify yourself as my patient with a [...] + +--------+ + + + | RI PERCUT IMPLNT | Routin | 08/03/2012 | [...]
--- OUTSIDE RECORDS SUMMARY | ~2020-06-02 | XMS | Encounter Summary ---
Demographics + + + | Address | [address] | | | [place] [address] | + + + | Home Phone [...] Providers + +------+ + | Care Pipe Finishing Supervisor Name | Role | Phone | + +------+ + | Allegra Gandih | PCP | | + +------+ + Encounter Details +--------+ + + + + | Date | Type | Department | Care Team | Description | +--------+ + + + + | 08/02/ | Results | [facility] | Janak Riojas, | | | 2011 | Only | Pain Center at | MD [address] | | | | | [facility] | [facility] [id number] | | | | | [address] | [place], [place] | | | | | Center for Health | [address] | | | | | and [place], | [phone] | | | | | | | | | | | Floor [place], [place] | | | | | | [address] | | | | | | [phone] | | | +--------+ + + + [...]
--- OUTSIDE RECORDS SUMMARY | ~2020-06-02 | XMS | Encounter Summary ---
Demographics + + + | Address | [address] | | | [place] [address] | + + + | Home Phone [...] Team Providers + +------+ + | Care Cadence Specialists Name | Role | Phone | + [...] | | 2017 | | Center at [facility] [address] | | Review | | | | [facility] | | | | | | for Health and | | | | | | [facility] 2 | | | | | | [place], [place] | | | | | | [address] | | | | | | [phone] | | | +--------+ + + + [...]
--- OUTSIDE RECORDS SUMMARY | ~2020-06-02 | XMS | Encounter Summary ---
Demographics + + + | Address | [address] | | | [place] [address] | + + + | Home Phone [...] Team Providers + +------+ + | Care Roads Superintendent Name | Role | Phone | [...] | Pain Center at | ,PhD [address] [facility] | sig) | | | | [facility] | [address] | | | | | [address] | [place], [place] | | | | | [facility] | [address] | | | | | and [place], | [phone] | | | | | [facility] | | | | | | Floor [place], [place] | | | | | | [address] | | | | | | [phone] | | | +--------+ + + + [...]
--- OUTSIDE RECORDS SUMMARY | ~2020-06-02 | XMS | Encounter Summary ---
Demographics + + + | Address | [address] | | | [place] [address] | + + + | Home Phone [...] Providers + +------+ + | Care Warehouse Material Handler Name | Role | Phone [...] Pain Medicine | Diagnoses | Chasity, | General Operations Agent Chh1 | | | | / Pain | Abdominal | MD Kenny | [address] | | | | Management | pain, | [address] | [facility] | | | | | unspecified | [facility] | for Health | | | | | location | Rd | and Healing, | | | | | Procedures | [place], [place] | Building | | | | | CONSULT TO | [address] | 1,15th Floor | | | | | PAIN | | [place], [place] | | | | | MANAGEMENT | | [address] | | | | | | | Phone: | | | | | | | [phone] | | | | | | | Fax: | | | | | | | [phone] | +--------+--------+ + + + + Reason [...] Abdominal | | 2016 | | Center [place] [address] [address] | | pain | | | | [address] [facility] | | | | | | for Health and | | | | | | Healing, [facility] 2 | | | | | | [place], [place] | | | | | | [address] | | | | | | [phone] | | | +--------+ + + + [...]
--- OUTSIDE RECORDS SUMMARY | ~2020-06-02 | XMS | Encounter Summary ---
Demographics + + + | Address | [address] | | | [place] [address] [...] Providers + +------+ + | Care Machine Washer Name | Role | Phone | + +------+ + | Justo Vazquez MD | PCP | | + +------+ + Encounter Details +--------+ + + + + | Date | Type | Department | Care Team | Description | +--------+ + + + + | 12/05/ | Pharmacy | [facility] | | | | 2019 | Visit | & [facility] | | | | | | [address] | | | | | | Mailcode: [place] | | | | | | [facility] | | | | | | Healing, Building 1 | | | | | | [place], [place] | | | | | | [address] | | | | | | [phone] | | | +--------+ + + + [...]
--- OUTSIDE RECORDS SUMMARY | ~2020-06-02 | XMS | Encounter Summary ---
Demographics + + + | Address | [address] | | | [place] [address] | + + + | Home Phone [...] Team Providers + +------+ + | Care Major Assembly Lineman Name | Role | Phone | + [...] | | syndrome | [address] | [facility] | | | | | type 1 of | Rd | Rd [place], | | | | | left lower | [place], [place] | [place] | | | | | extremity | [address] | [address] | | | | | Procedures | Phone: | Phone: | | | | | REQUEST TO | [phone] | [phone] | | | | | SURGERY | Fax: | Fax: | | | | | OCCUPATIONAL HEALTH NURSE SUPERVISOR | [phone] | [phone] | +--------+---------+ + + + + Encounter Details +--------+---------+ + + + | Date | Type | Department | Care Team | Description | +--------+---------+ + + + | 12/07/ | Office | [facility] Comprehensive | Eulogio | Complex regional | | 2019 | Visit | Pain Center at | MD Irene [address] | pain syndrome type 1 | | | | [facility] | [address] [place], | of left lower | | | | [address] | [place] [address] | extremity (Primary | | | | [facility] | [phone] | Dx); S/P insertion | | | | and Healing, | | of spinal cord | | | | Building , | | stimulator | | | | Floor [place], [place] | | | | | | [address] | | | | | | [phone] | | | +--------+---------+ + + + [...] ntment at the [facility] was December 05, 2018, for a procedure [...] her 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 FLYING INSTRUCTOR Brief Pain Inventory: (ten= worst possible [...] spinal cord stimulator leads 08/02/2012 [facility], Surgeon: Janak Riojas MD Cholecystectomy [...] History Social History Narrative Single. Goes to [employer] with a light load. Has been working at [employer], can' t work on [employer]. Has roommates. Allergies Allergen Reactions Morphine [...] directed by [facility] Digestive Health- 2 gallon [...] and summary of old medical records (source: [facility]), as summarized in the body of the [...] present for the encounter. Irene Krishnan MD [facility] COMPREHENSIVE PAIN CENTER AT [place] [id number] [facility], 4th Floor Mail Code: [address] [id number] documented in thi s encounter Plan of Treatment Not on filedocumented as of this encounter Visit Diagnoses + + | Diagnosis | + + | Complex regional pain syndrome type 1 of left lower extremity - Primary | + + | S/P insertion of spinal cord stimulator | + + documented in this encounter
--- OUTSIDE RECORDS SUMMARY | ~2020-06-02 | XMS | Encounter Summary ---
Demographics + + + | Address | [address] | | | [place] [address] | + + + | Home Phone [...] Providers + +------+ + | Care Customer Trainer Name | Role | Phone | [...] with nausea | [address] | [address] [place], | | | | | Complex | Rd | [place] | | | | | regional | [place], [place] | [address] | | | | | pain | [address] | Phone: | | | | | syndrome | Phone: | [phone] | | | | | type 1 of | [phone] | Fax: | | | | | left lower | Fax: | [phone] | | | | | extremity | [phone] | | | | | | Procedures [...] | | | | | Procedures | [place], [place] | Rd [place], | | | | | CONSULT TO | [address] | [place] | | | | | PAIN | | [address] | | | | | MANAGEMENT | | Phone: | | | | | | | [phone] | | | | | | | Fax: | | | | | | | [phone] | +--------+--------+ + + + + Encounter Details +--------+---------+ + + + | Date | Type | Department | Care Team | Description | +--------+---------+ + + + | 04/19/ | Office | [facility] Ilene | Alex Sanchez, | Intractable cyclical | | 2018 | Visit | Pain Center at | ,PhD [address] | vomiting with | | | | [facility] | [address] | nausea (Primary Dx); | | | | [address] | [place], [place] | Complex regional | | | | [place] [facility] | [address] | pain syndrome type 1 | | | | and Healing, | [phone] | of left lower | | | | Building | | extremity | | | | Floor [facility] [place] | | | | | | [address] | | | | | | [phone] | | | +--------+---------+ + + + [...] might be differe nt from the original. [facility] Center Return Visit Date: 04/20/2018 Chief Complaint Patient presents with Abdominal pain Back pain Pain in left leg History of Present Illness: Tracie Farah is a 27 year old female, whose last appoi ntment at the [facility] was 12/27/2017, for [...] not help for the abdominal pain). PAINBRIEF: [facility] Brief Pain Inventory: (ten= [...] Trial spinal cord stimulator leads 08/02/2012 [facility], Surgeon: Janak Riojas MD Cholecystectomy Appendectomy [...] History Social History Narrative Single. Goes to [employer] with a light load. Has been working at [employer], can' t work on [employer]. Has roommates. Allergies Allergen Reactions Morphine [...] by physician. Concentration is 150mg/mL. Compounded by [facility] ( [phone]) KETOROLAC IM Inject into the muscle (IM). [...] directed by [facility] Digestive Health- 2 gallon bowel [...] to her by Christie Madrid MD in [place], [place]. As she chowdhury s since left the practice, Ms. Farah no longer has a prescriber for this medication. At [facility], we typically do [...] unclear etiology. [facility] and [facility] greatly [facility] by Toradol, [...] Follow up as needed Alex Sanchez MD,PhD [facility] 3 :41 PM PDTSmithCharline [...]
--- OUTSIDE RECORDS SUMMARY | ~2020-06-02 | XMS | Encounter Summary ---
Demographics + + + | Address | [address] | | | [place] [address] | + + + | Home Phone [...] Team Providers + +------+ + | Care Grave Cleaner Name | Role | Phone | [...] | | | | regional | ,PhD [address] | | | | | | pain | [address] | | | | | | syndrome | [address] | | | | | | type 1 of | Rd | | | | | | left lower | [place], [place] | | | | | | extremity | [address] | | | | | | Procedures | Phone: | | | | | | PHYSICAL | [phone] | | | | | | THERAPY | Fax: | | | | | | REFERRAL | [phone] | | +--------+--------+ + + + + Encounter Details +--------+ + + + + | Date | Type | Department | Care Team | Description | +--------+ + + + + | 01/22/ | Telephone | [facility] Comprehensive | Alex Sanchez, | | | 2019 | | Pain Center at | ,PhD [address] [facility] | | | | | [facility] | [facility] | | | | | [address] | [place], [place] | | | | | [facility] | [address] | | | | | and [place], | [phone] | | | | | | | | | | | Floor [place], [place] | | | | | | [address] | | | | | | [phone] | | | +--------+ + + + [...]
--- OUTSIDE RECORDS SUMMARY | ~2020-06-02 | XMS | Encounter Summary ---
Demographics + + + | Address | [address] | | | [place] [address] | + + + | Home Phone [...] Providers + +------+ + | Care Line Erector Name | Role | Phone | + +------+ + | Allegra Gandhi | PCP | | + +------+ + Encounter Details +--------+ + + + + | Date | Type | Department | Care Team | Description | +--------+ + + + + | 02/13/ | Hospital | Nuclear Medicine | | | | 2011 | Encounter | at [facility] [address] | | | | | | [address] | | | | | | [address], | | | | | | [place], | | | | | | [place] [address] | | | | | | [phone] | | | +--------+ + + + [...]
--- OUTSIDE RECORDS SUMMARY | ~2020-06-02 | XMS | Encounter Summary ---
Demographics + + + | Address | [address] | | | [place] [address] | + + + | Home Phone [...] Providers + +------+ + | Care Machine Straw Hat Presser Name | Role | [...] | | | | | Procedures | [place], [place] | | | | | | MR | [id number] | | | | | | ENTEROGRAPHY [...] | 2017 | Visit | Center at [facility] [address] | | unspecified location | | | | [address] [facility] | | (Primary Dx) | | | | for Health and | | | | | | Healing, Building 2 | | | | | | [place], [place] | | | | | | [address] | | | | | | [phone] | | | +--------+---------+ + + + [...] heavy metal poisoning 2) MR enterography - [phone] to schedule 3) can increase miralax to 6 times per day Return to clinic in 3 months Please feel free to call our clinic with any questions. [phone] Kenny Gaspar MD Fellow, Division of Gastroenterology [...] n their attached note. Celia Lin MD Lap Runnernurse transplant Division of Gastroenterology & Hepatology [facility] Kenny Dodge Md - 2016 3:15 PM PST Gastroenterology Clinic Follow-Up Note 01/11/2017 CC/ID: Tracie Farah is a 26 F PMHx depression, complex regional pain syndrome(CRPS ) here for follow-up of n/v, abdominal pain INTERVAL HISTORY: Previously seen by Dr. Carbajal 08/10/16 - 10/2015 - hospitalized at [facility] for nausea/vomiting/pain -> [facility] -> CT A/P [...] oral recon soln Take as directed by [facility]- 2 gallon bowel prep 8000 mL 0 [...] during a flare - check for porphy eleln, C1 esterase, heavy metal poisoning 2) MR [...] Note | + + | Service Account, [employer] Res In Interface - 02/01/2017 3:50 PM [...]
--- OUTSIDE RECORDS SUMMARY | ~2020-06-02 | XMS | Encounter Summary ---
Demographics + + + | Address | [address] | | | [place] [address] | + + + | Home Phone [...] Providers + +------+ + | Care Palliative Senior Np Name | Role | Phone | + [...] Martinez MD | [facility] [address] | | | | | (complex | [address] | [address] | | | | | regional | [address] | [address] | | | | | pain | Mailstop | Acosta Vanegas, | | | | | syndrome), | [id number] | Basement | | | | | lower limb | [place], [place] | [place], [place] | | | | | Procedures | [address] | [address] | | | | | NM BONE &/[place] | Phone: | Phone: | | | | | JOINT | [phone] | [phone] | | | | | IMAGING 3 | Fax: | Fax: | | | | | PHASE | [phone] | [phone] | +--------+--------+ + + + + Consult [...] | | | regional | [place] | [address] | | | | | pain | FAMILY | Mailstop | | | | | syndrome), | MEDICINE P | [id number] | | | | | lower limb | [address] | [place], [place] | | | | | Gait | [place], | [address] | | | | | disturbance | [place] [address] | Phone: | | | | | Muscle pain | Phone: | [phone] | | | | | Procedures | [phone] | Fax: | | | | | REQUEST TO | Fax: | [phone] | | | | | SURGERY | [phone] | | | | | | INCLUSION PARAEDUCATOR | | | +--------+--------+ + + + + Consultation (Routine) +--------+--------+ + + + + | Status | Reason | Specialty | Diagnoses / | Referred By | Referred To | | | | | Procedures | Contact | Contact | +--------+--------+ + + + + | Closed | | Psychology / | Diagnoses | [place], | Collator Operator Psych | | | | Pain | CRPS | Dale Martinez MD | [facility] [address] | | | | Management | (complex | [address] | | | | | regional | [address] | Center for | | | | | pain | Mailstop | Health and | | | | | syndrome), | [id number] | Healing, | | | | | lower limb | [place], [place] | Building | | | | | Gait | [address] | 1,15th Floor | | | | | disturbance | Phone: | [place], [place] | | | | | Muscle pain | [phone] | [address] | | | | | Procedures | Fax: | Phone: | | | | | CONSULT TO | [phone] | [phone] | | | | | PAIN CENTER | | Fax: | | | | | | | [phone] | +--------+--------+ + + + + Physical Therapy (Routine) +--------+--------+ + + + + | Status | Reason | Specialty | Diagnoses / | Referred By | Referred To | | | | | Procedures | Contact | Contact | +--------+--------+ + + + + | Closed | | Physical | Diagnoses | [place], | Edu Pt Collator Operator | | | | Therapy | CRPS | Dale Martinez MD | [facility] [address] | | | | | (complex | [address] | | | | | regional | [address] | Mailcode: | | | | | pain | Mailstop | [facility] | | | | | syndrome), | [id number] | for Health | | | | | lower limb | [place], [place] | and Healing, | | | | | Gait | [address] | [facility] 1 | | | | | disturbance | Phone: | [place], [place] | | | | | Muscle pain | [phone] | [address] | | | | | Procedures | Fax: | Phone: | | | | | PHYSICAL | [phone] | [phone] | | | | | THERAPY | [...] | | | 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 | FAMILY | Mailstop | | | | | of lower | MEDICINE P | 218210 | | | | | limb | [address] | [place], [place] | | | | | | [place], | [address] | | | | | | [place] [address] | Phone: | | | | | | Phone: | [phone] | | | | | | [phone] | Fax: | | | | | | Fax: | [phone] | | | | | | [phone] | | +--------+--------+ + + + + Encounter Details +--------+---------+ + + + | Date | Type | Department | Care Team | Description | +--------+---------+ + + + | 02/13/ | Office | [place] [facility] | Dale Cantu, | CRPS (complex | | 2011 | Visit | Pain Center at | MD [address] | regional pain | | | | [facility] | [facility] [id number] | syndrome), lower | | | | [address] | [place], [place] | limb; Gait | | | | Center for Health | [address] | disturbance; Muscle | | | | and Healing, | [phone] | pain; Adjustment | | | | | | reaction | | | | Floor [place], [place] | | | | | | [address] | | | | | | [phone] | | | +--------+---------+ + + + [...] Diagnostic evaluation: Records from CRPS program at [facility]. 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 [...] that the patien t have a signed [facility] Material Risk Notice, agree to whatever [...] sure this is scheduled with the Lead Sharepoint Developer. Please bring a patrol driver with you. We may give you medications that make you drowsy or otherw ise unsafe to drive. If you do not have a patrol driver, we will not be able to do your procedure. DO NOT EAT ANYTHING AFTER MIDNIGHT If your appointment is after 1 PM , you may have a very light, low fat breakfast, such as h assisted a piece of dry toast or a [...] PLEASE CONTACT THE COMPREHENSIVE PAIN CENTER AT [phone] ([phone]) FOR QUESTIONS OR IF YOU NEED TO CANCEL YOUR APPOINTMENT. [facility] Center documented in this [...] [facility] [address] [place] [address] Reason for visit Chief Complaint Patient presents with Pain in left leg Ankle pain left History of Present Illness: Tracie Farah is a 21 year old female with pain locate d in left lower extremity. She has been diagnosed with CRPS. She is referred to [facility] for consultation regarding this ongoing pain problem with the following spec [facility] issues to be addressed: Other options [...] by several orthopedic surgeons, Dr. Charles in [place], physical therapy, Occupational Therapy. Diagnostic and radiologic [...] no pain relief. Admitted to the inpatient [facility] program for 1 month [...] entin, pregabalin, topiramate, tramadol, multiple opioids. Current [place] about 6-8/day. St arting duloxetine, at 30 mg/day. She feels that the most effective medication treatments ar e or have been opioids. As a result of her pain, Ms. Farah notes multiple changes in her life, including: "I don 't have a life, can't work, can't go to school." Poor mood, sleep, activity. Using crutche s recently because of pain flare. BLADE BALANCER Brief Pain Inventory: (ten= worst possible pain [...] History Social History Narrative Single. Goes to [employer] college with a light load. Has been working at [employer], can' t work on [employer]. Has roommates. Current Medication List 02/14/12 9:50 [...] Anaphylaxis As part of today's visit the [facility] new patient questionnaire was review [...] 729.1C Muscle pain 309.9CV Adjustment reaction Ms. Faarh has persistent left lower extremity Complex Regional Pain Syndrome. She may h ave peroneal nerve dysfunction as well, making it Type II CRPS. She has had extensive treatment including multiple medications, surgical treatment of the f ibula/ankle and compartment syndrome, physical therapy, mirror therapy, psychological counse rambo, the pediatric inpatient pain program at [facility], and two attempted lumbar sympathetic [...] CRPS patients (Loretta Rousseau, et al. Katrina Diet Aide Med. 2010;152: 152-158). Other treatment options for the future: Spinal cord stimulation (SCS) has good evidence f or providing long-term relief in CRPS (Complex Regional Pain Syndrome) [...] [facility]: [facility] Suggest three ph ase bone scan-- [...] that the patien t have a signed [facility] Material Risk Notice, agree to whatever [...] discuss our consultation findings with her PCP, BJRON Villanueva. DALE CANTU MD Power Ballast Machine Operator, [facility] Director Vaccine, Pain Medicine Professor, Anesthesiology & Perioperative Medicine [...] | | + +---------+ + + | [facility] DEPARTMENT OF | | | | [...]
--- OUTSIDE RECORDS SUMMARY | ~2020-06-02 | XMS | Encounter Summary ---
Demographics + + + | Address | [address] | | | [place] [address] | + + + | Home Phone [...] Team Providers + +------+ + | Care Fuse Cutter Name | Role | Phone | [...] Center at [facility] [address] | | Review | | | | S [facility] | | | | | | for Health and | | | | | | [facility], [facility] 2 | | | | | | [place], [place] | | | | | | [address] | | | | | | [phone] | | | +--------+ + + + [...]
--- OUTSIDE RECORDS SUMMARY | ~2020-06-02 | XMS | Encounter Summary ---
Demographics + + + | Address | [address] | | | [place] [address] | + + + | Home Phone [...] Team Providers + +------+ + | Care Fabrication And Layout Craftsman Name | Role | Phone | + [...] | | | | | [address] | | | | | | [address] | | | | | | Liane Cai, | | | | | | [address] [place] [address], | | | | | | [place] [address] | | | | | | [phone] | | | +--------+ + + + [...]
--- OUTSIDE RECORDS SUMMARY | ~2020-06-02 | XMS | Encounter Summary ---
Demographics + + + | Address | [address] | | | [place] [address] | + + + | Home Phone [...] Providers + +------+ + | Care Tire Layer Name | Role | Phone | + +------+ + | Justo Vazquez MD | PCP | | + +------+ + Encounter Details +--------+ + + + + | Date | Type | Department | Care Team | Description | +--------+ + + + + | 12/28/ | Slab Off Mill Tender | [facility] | Alex Sanchez, | Arthralgia of lower | | 2018 | | Pain Center at | ,PhD [address] | leg, unspecified | | | | [facility] | [address] | laterality (Primary | | | | [address] | [place], [place] | Dx) | | | | Center for Health | [address] | | | | | and Healing, | [phone] | | | | | | | | | | | Floor [place], [place] | | | | | | [address] | | | | | | [phone] | | | +--------+ + + + [...]
--- OUTSIDE RECORDS SUMMARY | ~2020-06-02 | XMS | Encounter Summary ---
Demographics + + + | Address | [address] | | | [place] [address] | + + + | Home Phone [...] Team Providers + +------+ + | Care Woods Superintendent Name | Role | Phone | [...] + + | 06/07/ | Telephone | [facility] Ilene | Ilene Bright, | Care Coordination | | 2016 | | Pain Center at | RETAIL CLIENT MANAGER [address] | | | | | [facility] | [place], [place] | | | | | [address] | [address] | | | | | [facility] | [phone] | | | | | and Healing, | | | | | | Building , | | | | | | Floor [place], [place] | | | | | | [address] | | | | | | [phone] | | | +--------+ + + + [...]
--- OUTSIDE RECORDS SUMMARY | ~2020-06-02 | XMS | Encounter Summary ---
Demographics + + + | Address | [address] | | | [place] [address] | + + + | Home Phone [...] Providers + +------+ + | Care Spring Coiler Hand Name | Role | Phone | [...] CRPS | Janak Martinez MD | Ch[facility] [address] | | | | Management | (complex | [address] | | | | | regional | [address] | Center for | | | | | pain | Mailstop | Health and | | | | | syndrome), | [id number] | Healing, | | | | | lower limb | [place], [place] | Building | | | | | Gait | [address] | 1,15th Floor | | | | | disturbance | Phone: | [place], [place] | | | | | Muscle pain | [phone] | [address] | | | | | Procedures | Fax: | Phone: | | | | | CONSULT TO | [phone] | [phone] | | | | | PAIN CENTER | | Fax: | | | | | | | [phone] | +--------+--------+ + + + + Encounter Details +--------+---------+ + + + | Date | Type | Department | Care Team | Description | +--------+---------+ + + + | 03/20/ | Office | Pain Center at [facility] | Shelia Feldman, PhD | Unspecified | | 2011 | Visit | [address] | | adjustment reaction | | | | Center for Health | | (Primary Dx) | | | | and Healing, | | | | | | Building | | | | | | Floor [place], [place] | | | | | | [address] | | | | | | [phone] | | | +--------+---------+ + + + [...] [facility] Name: Tracie Farah MR#: [id number] Date of : 1990 Date: March 20, 2012 Attending Psychologist: SHELIA FELDMAN, PHD CPT: 87244 Duration: 60min Psych: 309.0 Pain: 355.71 Tracie arrived on time for today's appointment, casually dressed and neatly groomed. Affect was appropriate, mood normothymic. She drove herself today and used crutches. She stated t hat she was doing "better", mainly because she has returned to work at [employer]. She is wo rking about [...] discretion, not currently planned. SHELIA FELDMAN, PHD Program Planner Licensed Clinical Psychologist [facility] Department of Anesthesiology & Perioperative Medicine [facility] [address] [place], [place] [id number] Historical Information: Introduction: Tracie Farah is a 21-year-old woman with >5 year hx of CRPS, R LE.S ocial & Psychiatric History: Tracie Farah lives in [place] in a shared apartment space. She has struggled wi th CRPS for at least 5 years; original injury to her foot was in 2001. In summer 2010 she h ad inpt pain tx at [facility] with limited custodial benefit. Recent flare; she [...] She learned some pain management techniques at [facility], mainly DB and PMR, which she does [...] Travel is a barrier; she lives in [place] DSM-IV Diagnoses/Impressions: [place] I: 1. 309.9 Unspecified Adjustment Reaction 2. 780.50 Sleep Disturbance [place] II: Deferred. [place] III: Patient Active Problem List Diagnoses CRPS (complex regional pain syndrome), lower limb Gait disturbance Muscle pain Adjustment reaction [place] IV: CRPS pain, pain related debility;difficulty attending class, working; family stres s; stalker ex-bf [place] V: Global Assessment of Functioning = 75 [...] me should questions arise. SHELIA FELDMAN, PHD Program Planner Licensed Clinical Psychologist Replaced By [facility] Department of Anesthesiology & Perioperative Medicine [facility] [address] [place] [address] documented in this enc ounter Plan of Treatment Not on filedocumented as of this encounter Visit Diagnoses + + | Diagnosis | + + | Unspecified adjustment reaction - Primary | + + documented in this encounter
--- OUTSIDE RECORDS SUMMARY | ~2020-06-02 | XMS | Encounter Summary ---
Demographics + + + | Address | [address] | | | [place] [address] | + + + | Home Phone [...] + +------+ + | Care Professor Of Business Administration Name | Role | Phone | + [...] | | 2017 | | Center at [facility] [address] | MD Melissa | Marker instructions) | | | | [address] [facility] | | | | | | for Health and | | | | | | Healing, Building 2 | | | | | | [place], [place] | | | | | | [address] | | | | | | [phone] | | | +--------+ + + + [...]
--- OUTSIDE RECORDS SUMMARY | ~2020-06-02 | XMS | Encounter Summary ---
Demographics + + + | Address | [address] | | | [place] [address] [...] Team Providers + +------+ + | Care Shingle Trimmer Name | Role | Phone | [...] | Diagnoses | [place] | Edu Pt Ux Manager | | | | Therapy | CRPS | Janak Martinez MD | [facility] [address] | | | | | (complex | [address] | | | | | regional | [address] | Mailcode: | | | | | pain | Mailstop | [facility] | | | | | syndrome), | [id number] | for Health | | | | | lower limb | [place], [place] | and Healing, | | | | | Gait | [address] | Building 1 | | | | | disturbance | Phone: | [place], [place] | | | | | Muscle pain | [phone] | [address] | | | | | Procedures | Fax: | Phone: | | | | | PHYSICAL | [phone] | [phone] | | | | | THERAPY | [...] | | | | [place] | [place] [address] | syndrome), lower | | | | [address] | [phone] | limb (Primary Dx) | | | | [facility] | | | | | | and Healing, | | | | | | Building 1, | | | | | | Floor [place], [place] | | | | | | [address] | | | | | | [phone] | | | +--------+---------+ + + + [...] might be different f rom the original. [id number] BRODY FARAH Date of : 1990 Start of care: 02/14/2012 Date of onset: 02/14/2012 Referring/Attending Practitioner: Janak Riojas MD . Primary/Referral Diagnosis/ICD-9: 355.71B CRPS (complex regional pain syndrome), lower limb Insurance: [facility] [email or web address] Plan: BCBS OUT OF STATE Product Type: PP O Service period from: 02/14/2012 to: 08/12/2012 Number visits used/authorized: 03/25 [facility] PHYSICAL THERAPY PROGRESS NOTE SUBJECTIVE: Age: [...] [facility] Outpatient Rehabilitation Services Mailcode: Ch3p [address] [facility], [address] [place] [address] documented in this encounter Plan of [...]
--- OUTSIDE RECORDS SUMMARY | ~2020-06-02 | XMS | Encounter Summary ---
Demographics + + + | Address | [address] | | | [place] [address] [...] Providers + +------+ + | Care Senior Media Buyer Name | Role | Phone | [...] | | | [address] | [facility] | | | | | [place], [place] | [place], [place] | | | | | [address] | [address] | | | | | | [phone] | | | | | | | [...] | + +--------+ + + + | NURSING SCHEDULER MISC PROCEDURE | Routin | 12/27/2017 | Complex regional | Results for this | | | e | 3:28 PM | pain syndrome type 1 | procedure are in the | | | | PST | of left lower | results section. | | | | | extremity | | + +--------+ + + + documented in this encounter Results [facility] MISC PROCEDURE (12/27/2017 3:28 PM PST) [...]
--- OUTSIDE RECORDS SUMMARY | ~2020-06-02 | XMS | Encounter Summary ---
Demographics + + + | Address | [address] | | | [place] [address] | + + + | Home Phone [...] Providers + +------+ + | Care Wool Handler Name | Role | Phone | [...] | | Pain Center at | ,PhD [address] | denied) | | | | [facility] | [facility] | | | | | [address] | [place], [place] | | | | | [facility] | [address] | | | | | and [place]ina, | [phone] | | | | | [facility] | | | | | | Floor [place], [place] | | | | | | [address] | | | | | | [phone] | | | +--------+ + + + [...]
--- OUTSIDE RECORDS SUMMARY | ~2020-06-02 | XMS | Encounter Summary ---
Demographics + + + | Address | [address] | | | [place] [address] | + + + | Home Phone [...] Providers + +------+ + | Care Range Feeder Name | Role | Phone | + +------+ + | Justo Vazquez MD | PCP | | + +------+ + Encounter Details +--------+ + + + + | Date | Type | Department | Care Team | Description | +--------+ + + + + | 12/07/ | Pharmacy | [facility] | | | | 2019 | Visit | & [facility] Pharmacy | | | | | | [address] | | | | | | Mailcode: [place] | | | | | | [facility] and | | | | | | Healing, Building 1 | | | | | | [place], [place] | | | | | | [address] | | | | | | [phone] | | | +--------+ + + + [...]
--- OUTSIDE RECORDS SUMMARY | ~2020-06-02 | XMS | Encounter Summary ---
Demographics + + + | Address | [address] | | | [place] [address] | + + + | Home Phone [...] Team Providers + +------+ + | Care Rag Collector Name | Role | Phone | + +------+ + | Justo Vazquez MD | PCP | | + +------+ + Encounter Details +--------+ + + + + | Date | Type | Department | Care Team | Description | +--------+ + + + + | 07/26/ | MyChart | [facility] Comprehensive | Ilene Bright, | Labs | | 2017 | Encounter | Pain Center at | SHREDDED FILLER MACHINE WRAPPER LAYER [address] | | | | | [facility] | [place], [place] | | | | | [address] | [address] | | | | | [place] for [facility] | [phone] | | | | | and Healing, | | | | | | | | | | | | Floor [place], [place] | | | | | | [address] | | | | | | [phone] | | | +--------+ + + + [...]
--- OUTSIDE RECORDS SUMMARY | ~2020-06-02 | XMS | Encounter Summary ---
Demographics + + + | Address | [address] | | | [place] [address] | + + + | Home Phone [...] Providers + +------+ + | Care Outside Sales Consultant Name | Role | Phone [...] | | | | regional | ,PhD [address] | | | | | | pain | [address] | | | | | | syndrome | [address] | | | | | | type [address] of | Rd | | | | | | left lower | [place], [place] | | | | | | extremity | [address] | | | | | | Other | Phone: | | | | | | chronic pain | [phone] | | | | | | S/P | Fax: | | | | | | insertion of | [phone] | | | | | | spinal [...] | | | | regional | ,PhD [address] | | | | | | pain | [address] | | | | | | syndrome | [address] | | | | | | type 1 of | Rd | | | | | | left lower | [place], [place] | | | | | | extremity | [address] | | | | | | Other | Phone: | | | | | | chronic pain | [phone] | | | | | | S/P | Fax: | | | | | | insertion of | [phone] | | | | | | spinal [...] + + | 04/26/ | Telephone | [facility] | Alex Sanchez, | | | 2019 | | Pain Center at | ,PhD [address] | | | | | [facility] | [address] | | | | | [address] | [place], [place] | | | | | [facility] | [address] | | | | | and Healing, | [phone] | | | | | | | | | | | Floor [place], [place] | | | | | | [address] | | | | | | [phone] | | | +--------+ + + + [...]
--- OUTSIDE RECORDS SUMMARY | ~2020-06-02 | XMS | Encounter Summary ---
Demographics + + + | Address | [address] | | | [place] [address] | + + + | Home Phone [...] Team Providers + +------+ + | Care Stamp Press Operator Name | Role | Phone [...] | | 2017 | anned | Services [address] | | | | | | [address] | | | | | | Mailcode: [id number] | | | | | | [facility] | | | | | | [place], [place] | | | | | | [address] | | | | | | [phone] | | | +--------+ + + + [...]
--- OUTSIDE RECORDS SUMMARY | ~2020-06-02 | XMS | Encounter Summary ---
Demographics + + + | Address | [address] | | | [place] [address] | + + + | Home Phone [...] + +------+ + | Care Associate Director Career Services Name | Role | Phone | [...] Rd | | | | | | [place], [place] | | | | | | [address] | | | +--------+ + + + [...]
--- OUTSIDE RECORDS SUMMARY | ~2020-06-02 | XMS | Encounter Summary ---
Demographics + + + | Address | [address] | | | [place] [address] | + + + | Home Phone [...] Team Providers + +------+ + | Care Powdered Metal Supervisor Name | Role | Phone | [...] | | Pain | Complex | Ilene, DATA MODELING SPECIALIST | Hanna M, | | | | Management | regional | [address] | PSY D [address] | | | | | pain | [address] | [address] | | | | | syndrome | [place], [place] | [place], [place] | | | | | type 1 of | [address] | [address] Phone: | | | | | left lower | Phone: | [phone] | | | | | extremity | [phone] | Fax: | | | | | Intractable | Fax: | [phone] | | | | | cyclical | [phone] | | | | | | vomiting [...] Pain Medicine | Diagnoses | Chasity, | Steel Checker Chh1 | | | | / Pain | Abdominal | MD Kenny | [address] | | | | Management | pain, | [address] [facility] | [facility] | | | | | unspecified | [facility] | for Health | | | | | location | Rd | and Healing, | | | | | Procedures | [place], [place] | [facility] | | | | | CONSULT TO | [address] | 1,15th Floor | | | | | PAIN | | [facility] [place] | | | | | MANAGEMENT | | [address] | | | | | | | Phone: | | | | | | | [phone] | | | | | | | Fax: | | | | | | | [phone] | +--------+--------+ + + + + Encounter Details +--------+---------+ + + + | Date | Type | Department | Care Team | Description | +--------+---------+ + + + | 04/25/ | Office | [facility] | Ilene Bright, | Abdominal pain, | | 2017 | Visit | Pain Center at | DATA MODELING SPECIALIST [address] | unspecified location | | | | [facility] | [place], [place] | (Primary Dx); | | | | [address] | [address] | Complex regional | | | | [place] for [facility] | [phone] | pain syndrome type 1 | | | | and Healing, | | of left lower | | | | Building 1,15 | | extremity; | | | | Floor [place], [place] | | Intractable cyclical | | | | [address] | | vomiting with | | | | [phone] | | nausea; | | | | [...] encounter Patient Instructions Patient Instructions Ilene Bright, DATA MODELING SPECIALIST - 04/25/2017 1:35 PM PDTKelly, Nice to [...] Freddie Guadalupe MD [email or web address] Ilene Childs DNP, DATA MODELING SPECIALIST-C [facility] [address] [place] [address] documented in this encounter Progress Notes Ilene Bright FNP - 04/25/2017 1:35 PM PDTFormatting of this note might be different fr om the original. Date: 04/25/2017 was referred for pain management consultation by Kenny Gaspar MD [address] [place] [address] Reason for consult: abdominal pain Chief Complaint Patient presents with Abdominal pain Back pain History of Present Illness: Tracie Farah is a 26 year old female with a history of depression, complex regional pain syndrome (left lower extremity) for this she follows with a neurologist at [facility] in [facility]. She has been stable on her current [...] effective treatments include: medication (toradol). lives in [place], [place] alone and with her children. She receives disability. does not have specific goals for today's appointment. 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 No Do you drink alcohol to decrease [...] Hemroidectomy Trial spinal cord stimulator leads 08/02/2012 [facility], Surgeon: Janak Riojas MD Cholecystectomy [...] History Social History Narrative Single. Goes to [employer] with a light load. Has been working at [employer], can' t work on crAlo7. Has roommates. Allergies Allergen Reactions Morphine Anaphylaxis [...] by physician. Concentration is 150mg/mL. Compounded by [facility] ) LAMOTRIGINE 200 MG TABLET Take [...] GRAM SOLUTION Take as directed by [facility]- 2 gallon bowel prep POLYETHYLENE GLYCOL 3350 17 GRAM/DOSE ORAL POWDER Take 17 g by mouth once daily. PROMETHAZINE 12.5 MG TABLET Take 12.5 mg by mouth four times daily as needed for nausea/vom iting. SUCRALFATE 1 GRAM TABLET Take 1 g by mouth four times daily. Radiology/Diagnostic Tests: MR ENTEROGRAPHY ABDOMEN AND PELVIS WWO CONTRAST Order: [id number] Performed: 01/31/2017 4:34 PM Status: Final result [...] 3:50 PM X-RAY ABDOMEN 1 VIEW Order: [id number] Performed: 03/19/2017 6:52 AM Status: Final result Visible to patient: Yes (MyChart) Details Reading Physician Reading Date Result Priority Jamel aLy MD 03/19/2017 Narrative EXAM: ABDOMEN 1 VIEW [...] and summary of old medical records (source: [employer]), as summarized in the body of the [...] possible opioid-sparing effects (Stevie Paulino et al.C BiancaMed, (8):1655-70, 2007) and evidence that it can [...] TERESA-C Adult [facility] [address] [place] [address] Display Progress Note in MyChart: No documented [...]
--- OUTSIDE RECORDS SUMMARY | ~2020-06-02 | XMS | Encounter Summary ---
Demographics + + + | Address | [address] | | | [place] [address] | + + + | Home Phone [...] Team Providers + +------+ + | Care Rehabilitation Assistant Name | Role | Phone | [...] | | | | | Ave Mailcode: [facility] | [place], [place] | | | | | [facility] | [address] | | | | | Health and Healing, | [phone] | | | | | [place] [address] | | | | | | [place], [place] | | | | | | [address] | | | | | | [phone] | | | +--------+ + + + [...] Discharge Instructions Instructions Darlin Doyle RN - 12/14/2016[place] Care Instructions after Colonoscopy You may resume [...] on weekends and holidays call the Hospital Contracting Executive toll free [phone] Ext. [phone] or and have the GI doctor risk management professional paged. The provider who performed your procedure [...] Farah is a 26 y.o. female MR# [id number] presents today for colonoscopy NPO since midnight [...]
--- OUTSIDE RECORDS SUMMARY | ~2020-06-02 | XMS | Encounter Summary ---
Demographics + + + | Address | [address] | | | [place] [address] [...] Team Providers + +------+ + | Care Gym Instructor Name | Role | Phone | [...] | | left lower | [facility], [place] | [place] | | | | | extremity | [address] | [address] | | | | | Procedures | Phone: | Phone: | | | | | REQUEST TO | [phone] | [phone] | | | | | SURGERY | Fax: | Fax: | | | | | SEARCH PLANNER | [phone] | [phone] | +--------+---------+ + + + + Reason [...] | | | | | Procedures | [place], [place] | [place], | | | | | CONSULT TO | [address] | [place] | | | | | PAIN | | [address] | | | | | MANAGEMENT | | Phone: | | | | | | | [phone] | | | | | | | Fax: | | | | | | | [phone] | +--------+--------+ + + + + Encounter Details +--------+---------+ + + + | Date | Type | Department | Care Team | Description | +--------+---------+ + + + | 10/09/ | Office | [facility] | Alex Sanchez, | Complex regional | | 2018 | Visit | Pain Center at | ,PhD [address] | pain syndrome type 1 | | | | [facility] | [address] | of left lower | | | | [address] | [place], [place] | extremity (Primary | | | | [place] for [facility] | [address] | Dx) | | | | and Healing, | [phone] | | | | | | | | | | | Floor [place], [place] | | | | | | [address] | | | | | | [phone] | | | +--------+---------+ + + + [...] with an external order to see a loan operations specialist today. Please p resent this referral [...] insurance. PRE-PROCEDURE INSTRUCTIONS 1. Please bring a boom truck driver with you as we may [...] phone number for questions or concerns is [phone]. documented in this encounter Progress Notes Alex [...] notes. Alex Sanchez MD,PhD [facility] signed by Alex Sanchez MD,PhD at [...] [facility] [place] was September 28, 2018, for a clinic visit with Yun Frey NP. At that time our plans were: Recommendations/Plan: 1. Recommend to keep her appointment with Dr. Sanchez on 10/02/2018. 2. To contact the [employer] rep if she has any further question [...] She went into the emergency room in [place] where they rem cady the leads. She [...] which she suspects also used dissolvable stitches. SOILS ANALYST Brief Pain Inventory: (ten= worst possible [...] Hemroidectomy Trial spinal cord stimulator leads 08/02/2012 [facility], Surgeon: Janak Riojas MD Cholecystectomy Appendectomy [...] a light load. Has been working at [employer], can' t work on [employer]. Has roommates. Allergies Allergen Reactions Morphine Anaphylaxis [...] the vein (IV) every eight hour s. 2813-7405-62 COMPOUNDED MED RX CONTROLLED (SEE ADMIN INSTRUCT [...] by physician. Concentration is 150mg/mL. Compounded by [facility] ( [phone]) KETOROLAC IM Inject into the muscle (IM). [...] (IV) every twel ve hours as needed. 9319-5832-72 ONDANSETRON 4 MG DISINTEGRATING TABLET Dissolve 1 tablet in mouth every twelve hours as nee ded. PANTOPRAZOLE 40 MG TABLET,DELAYED RELEASE Take 40 mg by mouth once daily. PEG 3350-ELECTROLYTES 236 GRAM-22.74 GRAM-6.74 GRAM-5.86 GRAM SOLUTION Take as directed by [facility]- 2 gallon bowel prep [...] and summary of old medical records (source: Profilepasser), as summarized in the body of the [...] Key. Arben Valerio MD PAIN CENTER AT [facility] 15TH FLOOR [address] [facility] Mail Code: [address] [place] [address] [phone] signed by Alex Sanchez MD,PhD at 10/10/2018 9:27 AM [facility] umented in this encounter Plan of Treatment Not on filedocumented as of this encounter Visit Diagnoses + + | Diagnosis | + + | Complex regional pain syndrome type 1 of left lower extremity - Primary | + + documented in this encounter
--- OUTSIDE RECORDS SUMMARY | ~2020-06-02 | XMS | Encounter Summary ---
Demographics + + + | Address | [address] | | | [place] [address] | + + + | Home Phone [...] Team Providers + +------+ + | Care Tricot Knitter Name | Role | Phone | [...] + + | 10/06/ | Telephone | [facility] Comprehensive | Yosef Kenney MD | Dermatitis | | 2018 | | Pain Center at | [address] | | | | | [facility] | [facility] | | | | | [address] | [place] [address] | | | | | [facility] | [phone] | | | | | and Healing, | | | | | | [facility] | | | | | | [place], [place] | | | | | | [address] | | | | | | [phone] | | | +--------+ + + + [...]
--- OUTSIDE RECORDS SUMMARY | ~2020-06-02 | XMS | Encounter Summary ---
Demographics + + + | Address | [address] | | | [place] [address] | + + + | Home Phone [...] Team Providers + +------+ + | Care Lastex Operator Name | Role | Phone | [...]
--- OUTSIDE RECORDS SUMMARY | ~2020-06-02 | XMS | Encounter Summary ---
Demographics + + + | Address | [address] | | | [place] [address] | + + + | Home Phone [...] Providers + +------+ + | Care Paint Pourer Name | Role | Phone | + [...] | | | | | Procedures | [place], [place] | | | | | | MR | [id number] | | | | | | ENTEROGRAPHY [...] | 2017 | Visit | Center at [facility] [address] | | unspecified location | | | | [address] [facility] | | (Primary Dx) | | | | for Health and | | | | | | Healing, Building 2 | | | | | | [place], [place] | | | | | | [address] | | | | | | [phone] | | | +--------+---------+ + + + [...] heavy metal poisoning 2) MR enterography - [phone] to schedule 3) can increase miralax to 6 times per day Return to clinic in 3 months Please feel free to call our clinic with any questions. [phone] Kenny Gaspar MD Fellow, Division of Gastroenterology [...] n their attached note. Celia Lin MD Uph[employer] special education teacher Division of Gastroenterology & Hepatology [facility] Kenny Dodge Md - 2016 3:15 PM PST Gastroenterology Clinic Follow-Up Note 01/11/2017 CC/ID: Tracie Farah is a 26 F PMHx depression, complex regional pain syndrome(CRPS ) here for follow-up of n/v, abdominal pain INTERVAL HISTORY: Previously seen by Dr. Carbajal 08/10/16 - 10/2015 - hospitalized at [facility] for nausea/vomiting/pain -> [facility] -> CT [...] recon soln Take as directed by [facility]- 2 gallon bowel prep 8000 mL 0 [...] Note | + + | Service Account, [employer] Res In Interface - 02/01/2017 3:50 PM [...]
--- OUTSIDE RECORDS SUMMARY | ~2020-06-02 | XMS | Encounter Summary ---
Demographics + + + | Address | [address] | | | [place] [address] | + + + | Home Phone [...] Team Providers + +------+ + | Care Hospice Home Care Coordinator Name | Role | Phone [...] Vomiting; | | 2016 | | Center [place] [address] [address] | | Constipation; | | | | [address] [place] | | Abdominal pain | | | | for Health and | | | | | | Healing, Building 2 | | | | | | [place], [place] | | | | | | [address] | | | | | | [phone] | | | +--------+ + + + [...]
--- OUTSIDE RECORDS SUMMARY | ~2020-06-02 | XMS | Encounter Summary ---
Demographics + + + | Address | [address] | | | [place] [address] | + + + | Home Phone [...] Team Providers + +------+ + | Care Radio/Tv Technician Name | Role | Phone | [...] Rd | | | | | | [place], [place] | | | | | | [address] | | | +--------+ + + + [...]
--- OUTSIDE RECORDS SUMMARY | ~2020-06-02 | XMS | Encounter Summary ---
Demographics + + + | Address | [address] | | | [place] [address] | + + + | Home Phone [...] Providers + +------+ + | Care Supervisor Public Message Service Name | Role | Phone | + [...] | Pain Center at | [address] | | | | | [facility] | [facility] [address] | | | | | [address] | [place], [place] | | | | | Center for Health | [address] | | | | | and Healing, | [phone] | | | | | [facility] | | | | | | Floor [place], [place] | | | | | | [address] | | | | | | [phone] | | | +--------+ + + + [...]
--- OUTSIDE RECORDS SUMMARY | ~2020-06-02 | XMS | Encounter Summary ---
Demographics + + + | Address | [address] | | | [place] [address] | + + + | Home Phone [...] Team Providers + +------+ + | Care Enterprise Application Architect Name | Role | Phone [...] | 10/30/ | Refill | [facility] | Alex Sanchez, | Refill Request | | 2018 | | Pain Center at | ,PhD [address] | | | | | [facility] | [address] | | | | | [address] | [place], [place] | | | | | [facility] | [address] | | | | | and [place]ina, | [phone] | | | | | [facility] | | | | | | Floor [place], [place] | | | | | | [address] | | | | | | [phone] | | | +--------+--------+ + + + [...]
--- OUTSIDE RECORDS SUMMARY | ~2020-06-02 | XMS | Encounter Summary ---
Demographics + + + | Address | [address] | | | [place] [address] | + + + | Home Phone [...] Providers + +------+ + | Care Sales Service Coordinator Name | Role | Phone [...] [address] | | | | | [facility] | [facility], | | | | | [address] | [place] [address] | | | | | [facility] | [phone] | | | | | and Healing, | | | | | | [facility] | | | | | | [place], [place] | | | | | | [address] | | | | | | [phone] | | | +--------+ + + + [...]
--- OUTSIDE RECORDS SUMMARY | ~2020-06-02 | XMS | Encounter Summary ---
Demographics + + + | Address | [address] | | | [place] [address] | + + + | Home Phone [...] | | Complex | Alex [place], | [facility] [address] | | | | | regional | ,PhD [address] | [place] | | | | | pain | [address] | | | | | syndrome | [address] | [address], | | | | | type 1 of | Rd | Basement | | | | | left lower | [place], [place] | [place], [place] | | | | | extremity | [address] | [address] | | | | | Muscle pain | Phone: | Phone: | | | | | Procedures | [phone] | [phone] | | | | | NM BONE | Fax: | Fax: | | | | | &/OR JOINT | [phone] | [phone] | | | | | IMAGING | [...] | | 2018 | Encounter | at [facility] [address] | ,PhD [address] | | | | | [address] | [address] | | | | | [address], | [place], [place] | | | | | [facility], | [address] | | | | | [place] [address] | [phone] | | | | | [phone] | | | +--------+ + + + [...]
--- OUTSIDE RECORDS SUMMARY | ~2020-06-02 | XMS | Encounter Summary ---
Demographics + + + | Address | [address] | | | [place] [address] | + + + | Home Phone [...] Team Providers + +------+ + | Care Wick And Base Assembler Name | Role | Phone | [...] | | Pain Center at | ,PhD [address] | denied) | | | | [facility] | [facility] | | | | | [address] | [place], [place] | | | | | [facility] | [address] | | | | | and [place], | [phone] | | | | | [facility] | | | | | | Floor [place], [place] | | | | | | [address] | | | | | | [phone] | | | +--------+ + + + [...]
--- OUTSIDE RECORDS SUMMARY | ~2020-06-02 | XMS | Encounter Summary ---
Demographics + + + | Address | [address] | | | [place] [address] | + + + | Home Phone [...] Team Providers + +------+ + | Care Strategic Planning Manager Name | Role | Phone [...] | | 2017 | anned | Services [address] | | | | | | [address] | | | | | | Mailcode: [id number] | | | | | | [facility] | | | | | | [place], [place] | | | | | | [address] | | | | | | [phone] | | | +--------+ + + + [...]
--- OUTSIDE RECORDS SUMMARY | ~2020-06-02 | XMS | Encounter Summary ---
Demographics + + + | Address | [address] | | | [place] [address] | + + + | Home Phone [...] Team Providers + +------+ + | Care Slope Runner Name | Role | Phone | [...] | | pain | [address] | [place], [place] | | | | | syndrome | [place] | [address] | | | | | type 1 of | [address] | Phone: | | | | | left lower | Phone: | [phone] | | | | | extremity | [phone] | Fax: | | | | | Midline low | Fax: | [phone] | | | | | back pain | [phone] | | | | | | without [...] Ave | | | | | | [place], [place] | [facility] [place] | | | | | | [address] | [address] | | | | | | Phone: | Phone: | | | | | | [phone] | [phone] | | | | | | Fax: | Fax: | | | | | | [phone] | [phone] | +--------+---------+ + + + + Encounter Details +--------+---------+ + + + | Date | Type | Department | Care Team | Description | +--------+---------+ + + + | 07/04/ | Office | [facility] Comprehensive | Lane Reyes, | Complex regional | | 2019 | Visit | Pain Center at | [place] [address] | pain syndrome type 1 | | | | [place] | [place], [place] | of left lower | | | | [address] | [address] | extremity (Primary | | | | Center for [facility] | [phone] | Dx); Midline low | | | | and Healing, | | back pain without | | | | Building | | sciatica, | | | | Floor [place], [place] | | unspecified | | | | [address] | | chronicity; | | | | [phone] | | Sacroiliac pain; | | | [...] and help in coping with the pain. WEATHER FORCASTER Brief Pain Inventory: (ten= worst possible pain [...] Trial spinal cord stimulator leads 08/02/2012 [facility], Surgeon: Janak Riojas MD Cholecystectomy [...] a light load. 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 Has roommates. Allergies Allergen Reactions Morphine Anaphylaxis [...] GRAM-5.86 GRAM SOLUTION Take as directed by [facility] Digestive [facility]- 2 gallon bowel prep POLYETHYLENE GLYCOL 3350 17 GRAM/DOSE ORAL POWDER Take 17 g by mouth once daily. PROMETHAZINE 12.5 MG TABLET Take 1 tablet by mouth four times daily as needed for nausea/vo miting. SUCRALFATE 1 GRAM TABLET Take 1 g by mouth four times daily. Radiology/Diagnostic Tests: X-RAY SPINE CERV 4 VIEWS Order: [id number] Performed: 06/12/2018 11:40 Status: Final result Visible [...] the treatment performed by the chiropractic international account manager, Niesha Reveles, was directly observed by myself the primary chiropractor Lane Reyes [place] Visit Diagnoses: ICD-10-CM 1. Complex regional pain syndrome type 1 of left lower extremity G90.522 CONSULT TO PAIN [facility] 2. Midline low back pain without sciatica, unspecified chronicity M54.5 CONSULT TO PAIN [facility] 3. Sacroiliac pain M53.3 CONSULT TO PAIN MANAGEMENT GA CHIROPRAC MANIP,SPINAL,1-2 REGIONS 4. Sacral dysfunction M53.3 GA CHIROPRAC MANIP,SPINAL,1-2 REGIONS 5. Somatic dysfunction of pelvis region M99.05 GA CHIROPRAC MANIP,SPINAL,1-2 REGIONS 6. Somatic dysfunction of sacral region M99.04 GA CHIROPRAC MANIP,SPINAL,1-2 REGIONS Impression: Tracie Farah is [...] the above note written by Chiropractic international account manager of our visit wit h this patient as recorded by Lane Reyes DC [facility] AT [address] Mail Code: [address]p [place] [address] documented in this e ncounter Plan of Treatment Not on filedocumented as of this encounter Procedures + +--------+ + + + | Procedure Name | Priori | Date/Time | Associated Diagnosis | Comments | | | ty | | | | + +--------+ + + + | GA CHIROPRAC | Routin | 07/10/2019 | Sacroiliac [...]
--- OUTSIDE RECORDS SUMMARY | ~2020-06-02 | XMS | Encounter Summary ---
Demographics + + + | Address | [address] | | | [place] [address] | + + + | Home Phone [...] Providers + +------+ + | Care Steam Table Worker Name | Role | Phone | + +------+ + | Justo Vazquez MD | PCP | | + +------+ + Encounter Details +--------+ + + + + | Date | Type | Department | Care Team | Description | +--------+ + + + + | 04/23/ | Pharmacy | [facility] | | | | 2019 | Visit | & [facility] | | | | | | [address] | | | | | | Mailcode: [place] | | | | | | [facility] | | | | | | Healing, Building [address] | | | | | | [place], [place] | | | | | | [address] | | | | | | [phone] | | | +--------+ + + + [...]
--- OUTSIDE RECORDS SUMMARY | ~2020-06-02 | XMS | Encounter Summary ---
Demographics + + + | Address | [address] | | | [place] [address] | + + + | Home Phone [...] Providers + +------+ + | Care Legal Officer Name | Role | Phone | + +------+ + | Justo Vazquez MD | PCP | | + +------+ + Encounter Details +--------+ + + + + | Date | Type | Department | Care Team | Description | +--------+ + + + + | 01/31/ | Documentati | Vascular Access at | [place], | | | 2017 | on | [facility] [address] | Maru RN [address] | | | | | [address] | [address] | | | | | [facility] | [place], [place] | | | | | [place], [place] | [address] | | | | | [address] | | | | | | [phone] | | | +--------+ + + + [...]
--- OUTSIDE RECORDS SUMMARY | ~2020-06-02 | XMS | Encounter Summary ---
Demographics + + + | Address | [address] | | | [place] [address] | + + + | Home Phone [...] Providers + +------+ + | Care Window Air Conditioner Installer Name | Role | Phone | + +------+ + | Justo Vazquez MD | PCP | | + +------+ + Encounter Details +--------+ + + + + | Date | Type | Department | Care Team | Description | +--------+ + + + + | 03/12/ | Telephone | [facility] | Alex Sanchez, | | | 2019 | | Pain Center at | ,PhD [address] | | | | | [place] | [address] | | | | | [address] | [place], [place] | | | | | [place] for [facility] | [address] | | | | | and Healing, | [phone] | | | | | | | | | | | Floor [place], [place] | | | | | | [address] | | | | | | [phone] | | | +--------+ + + + [...]
--- OUTSIDE RECORDS SUMMARY | ~2020-06-02 | XMS | Encounter Summary ---
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 | FAMILY | Mailstop | | | | | of lower | MEDICINE P | [id number] | | | | | limb | [address] | [place], [place] | | | | | | [place], | [address] | | | | | | [place] [address] | Phone: | | | | | | Phone: | [phone] | | | | | | [phone] | Fax: | | | | | | Fax: | [phone] | | | | | | [phone] | | +--------+--------+ + + + + Encounter Details +--------+---------+ + + + | Date | Type | Department | Care Team | Description | +--------+---------+ + + + | 09/04/ | Office | [facility] Comprehensive | Dale Cantu, | CRPS (complex | | 2011 | Visit | Pain Center at | [address] [facility] | regional pain | | | | [facility] | [facility] [address] | syndrome), lower | | | | [address] | [place], [place] | limb; Gait | | | | [place] for [facility] | [address] | disturbance; Sleep | | | | and Healing, | [phone] | disturbance, | | | | Building | | unspecified; | | | | Floor [place], [place] | | Adjustment reaction | | | | [address] | | | | | | [phone] | | | +--------+---------+ + + + [...] CRPS patients (Loretta Rousseau et al. Katrina Wholesale Account Manager Med. 2010;152:152-158) . Bisphosphonate trial. Typically, [...] Abraham MD - 09/04/2012 7:45 AM PDT [facility] Pain Center Return Visit with Dr. Dale Cantu 09/04/2012 Tracie aFrah; ; : 1990 Chief Complaint Patient presents [...] Hemroidectomy Trial spinal cord stimulator leads 08/02/2012 [facility], Surgeon: Dale Cantu MD Family History [...] obtained by the [facility] was reviewed. Additional Review of Systems sean [...] of Pain: 13(1):17-21, 2008). DALE CANTU MD Radio Equipment Repairer, [facility] Logistician, Pain Medicine Professor, Anesthesiology & Perioperative Medicine [...]
--- OUTSIDE RECORDS SUMMARY | ~2020-06-02 | XMS | Encounter Summary ---
Demographics + + + | Address | [address] | | | [place] [address] | + + + | Home Phone [...] Providers + +------+ + | Care Customer Greeter Name | Role | Phone | [...] | | | | | Constipation | [address] | | | | | , | [address] | [place] for | | | | | unspecified | [address] | Health and | | | | | constipation | [place], [place] | Healing, | | | | | type | [address] | Building [address] | | | | | Abdominal | | [place], [place] | | | | | pain, | | [address] | | | | | unspecified | | Phone: | | | | | location | | [phone] | | | | | Procedures | | Fax: | | | | | CONSULT TO | | [phone] | | | | | GI PROCEDURE [...] 2015 | | Center at [facility] [address] | MD Melissa | Vomiting (Bile) | | | | [address] | | | | | | for Health and | | | | | | Healing, Building [address] | | | | | | [place], [place] | | | | | | [address] | | | | | | [phone] | | | +--------+ + + + [...]
--- OUTSIDE RECORDS SUMMARY | ~2020-06-02 | XMS | Encounter Summary ---
Demographics + + + | Address | [address] | | | [place] [address] | + + + | Home Phone [...] Providers + +------+ + | Care Continuous Miner Name | Role | Phone | + +------+ + | Justo Vazquez MD | PCP | | + +------+ + Encounter Details +--------+ + + + + | Date | Type | Department | Care Team | Description | +--------+ + + + + | 05/12/ | MyChart | Pain Center at [facility] | Ewa Melchor, | RE: Schedule change | | 2017 | Encounter | [address] | [place] [address] | | | | | [place] for [facility] | [address] | | | | | and Healing, | [place] [address] | | | | | | [phone] | | | | | Floor [place], [place] | | | | | | [address] | | | | | | [phone] | | | +--------+ + + + [...]
--- OUTSIDE RECORDS SUMMARY | ~2020-06-02 | XMS | Encounter Summary ---
Demographics + + + | Address | [address] | | | [place] [address] | + + + | Home Phone [...] Team Providers + +------+ + | Care Experimental Welder Name | Role | Phone | [...] | | | | | Giuliana Maldonado [place], | | | | | | [place] [address] | | | +--------+ + + + [...]
--- OUTSIDE RECORDS SUMMARY | ~2020-06-02 | XMS | Encounter Summary ---
Demographics + + + | Address | [address] | | | [place] [address] | + + + | Home Phone [...] Providers + +------+ + | Care Metal Container Maker Name | Role | Phone | + +------+ + | Justo Vazquez MD | PCP | | + +------+ + Encounter Details +--------+ + + + + | Date | Type | Department | Care Team | Description | +--------+ + + + + | 12/05/ | Pharmacy | [facility] | | | | 2019 | Visit | & [facility]acy | | | | | | [address] | | | | | | Mailcode: Trade | | | | | | [facility] and | | | | | | Healing, Building 1 | | | | | | [place], [place] | | | | | | [address] | | | | | | [phone] | | | +--------+ + + + [...]
--- OUTSIDE RECORDS SUMMARY | ~2020-06-02 | XMS | Encounter Summary ---
Demographics + + + | Address | [address] | | | [place] [address] | + + + | Home Phone [...] Providers + +------+ + | Care Store Receiver Name | Role | Phone | + [...] | | | | | extremity | [address] | [address] | | | | | Muscle pain | Phone: | Phone: | | | | | Procedures | [phone] | [phone] | | | | | REQUEST TO | Fax: | Fax: | | | | | SURGERY | [phone] | [phone] | | | | | ENVIRONMENTAL AID | | | +--------+---------+ + + + [...] | syndrome | [address] | | | | | type [address] of | [address] | Rd [place], | | | | | left lower | [place], [place] | [place] | | | | | extremity | [address] | [address] | | | | | Muscle pain | Phone: | Phone: | | | | | Procedures | [phone] | [phone] | | | | | REQUEST TO | Fax: | Fax: | | | | | SURGERY | [phone] | [phone] | | | | | ENVIRONMENTAL AID | | | | | | | [...] | | | | | Procedures | [facility] [place] | [facility], | | | | | CONSULT TO | [address] | [place] | | | | | PAIN | | [address] | | | | | MANAGEMENT | | Phone: | | | | | | | [phone] | | | | | | | Fax: | | | | | | | [phone] | +--------+--------+ + + + + Encounter Details +--------+---------+ + + + | Date | Type | Department | Care Team | Description | +--------+---------+ + + + | 12/14/ | Office | [facility] | Alex Sanchez, | Complex regional | | 2018 | Visit | Pain Center at | ,PhD [address] | pain syndrome type 1 | | | | [facility] | [address] | of left lower | | | | [address] | [place], [place] | extremity (Primary | | | | [place] for [facility] | [address] | Dx); Muscle pain; | | | | and Healing, | [phone] | Pain of upper | | | | | | abdomen | | | | Floor [place], [place] | | | | | | [address] | | | | | | [phone] | | | +--------+---------+ + + + [...] the time to see us in the [facility]. It was great [...] make sure this is scheduled with the Waiter/Waitress Cocktail Lounge. PRE-PROCEDURE INSTRUCTIONS 1. Please bring a dedicated intermodal truck driver with you as we may give you medications that impair your ability to drive. This is necessary even if you do not receive sedation. You may take a taxi or [employer] if you are accompanied by a responsible [...] or blood thinning medications (other than aspirin), [facility] doctor who is doing your procedure will communicate with the provider who is prescribing y our anticoagulant therapy. If you do not have clear instructions on what to do with your an ticoagulant by 2 weeks before your procedure, please contact [facility] to cl arify your instructions. The phone number for questions or concerns is [phone]. documented in this encounter Progress Notes Charline [...] M D,PhD - 12/14/2017 10:25 AM PST [facility] Return Visit Date: 12/14/2017 Chief Complaint Patient presents with Back pain Low back pain Abdominal pain Pain in right leg Pain in left leg History of Present Illness: Tracie Farah is a 27 year old female, whose last appoi ntment at the [facility] [place] was October 11, 2017, for a clinic [...] review treatment plan. * Follow up with [facility] as needed. Today, [...] was treated by Christie Madrid MD in [place], [place] for three years before she abruptly ended her practice due to illness. This left her without a doctor to help her manage her chronic pain. In addition to her CRPS symptoms (diagnosed 2010), she has some sto mach issues that she has been working with Ilene Childs DNP, WATCH CASER-C. She has a scar on her stomach [...] a lot of great improvements while in [place], [place]. Weaning her off of the narcotic [...] her medical history that she spent in [place], [place] where she part ook in a [...] Spinal cord stimulator trial - Nerve blocks BUSINESS OFFICE ASSOCIATE Brief Pain Inventory: (ten= worst possible [...] History Social History Narrative Single. Goes to [employer] with a light load. Has been working at [employer], can' t work on [employer]el. Has roommates. Allergies Allergen Reactions Morphine Anaphylaxis [...] by physician. Concentration is 150mg/mL. Compounded by [facility] ) LAMOTRIGINE 200 MG TABLET Take [...] by [facility]- 2 gallon bowel prep POLYETHYLENE GLYCOL [...] and summary of old medical records (source: [employer]), as summarized in the body of the [...] to her by Christie Madrid MD in [place], [place]. As she has since left the [...] I jacqueline poon spoken with our medical record clerk, Evelia Gonzalez MD who agrees that [...] peripheral nerve stimulation. As she lives in [place], [place] with her family (3.5 hours away), [...] by Sonia Key. Alex Sanchez MD PhD Middle School Band Teacher Anesthesiology and Pain Management [facility] Post visit: I reviewed the [...] | + + + + + | [facility] | [address] | [place] [address] | | | SERVICES, CORE | GUILLERMO [...]
--- OUTSIDE RECORDS SUMMARY | ~2020-06-02 | XMS | Encounter Summary ---
Demographics + + + | Address | [address] | | | [place] [address] | + + + | Home Phone [...] Team Providers + +------+ + | Care Heart Specialist Name | Role | Phone | [...] + + | 10/30/ | Refill | [facility] Comprehensive | Alex Sanchez, | Refill Request | | 2018 | | Pain Center at | ,PhD [address] [facility] [address] | | | | | [facility] | [address] | | | | | [address] | [place], [place] | | | | | [facility] | [address] | | | | | and [place], | [phone] | | | | | [facility] | | | | | | Floor [place], [place] | | | | | | [address] | | | | | | [phone] | | | +--------+--------+ + + + [...]
--- OUTSIDE RECORDS SUMMARY | ~2020-06-02 | XMS | Encounter Summary ---
Demographics + + + | Address | [address] | | | [place] [address] | + + + | Home Phone [...] Oliveira | | 2011 | IP | [address] | | House - Approved | | | | Giuliana Maldonado [place], | | | | | | [place] [address] | | | +--------+ + + + [...]
--- OUTSIDE RECORDS SUMMARY | ~2020-06-02 | XMS | Encounter Summary ---
Demographics + + + | Address | [address] | | | [place] [address] | + + + | Home Phone [...] Team Providers + +------+ + | Care Under Ground Miner Name | Role | Phone | [...]
--- OUTSIDE RECORDS SUMMARY | ~2020-06-02 | XMS | Encounter Summary ---
Demographics + + + | Address | [address] | | | [place] [address] | + + + | Home Phone [...] Providers + +------+ + | Care Machine Load Clerk Name | Role | Phone | + +------+ + | Justo Vazquez MD | PCP | | + +------+ + Encounter Details +--------+ + + + + | Date | Type | Department | Care Team | Description | +--------+ + + + + | 09/25/ | Pharmacy | [facility] | | | | 2018 | Visit | & [facility]aling Pharmacy | | | | | | [address] | | | | | | Mailcode: [place] | | | | | | [facility] Health and | | | | | | Healing, Building [address] | | | | | | [place], [place] | | | | | | [address] | | | | | | [phone] | | | +--------+ + + + [...]
--- OUTSIDE RECORDS SUMMARY | ~2020-06-02 | XMS | Encounter Summary ---
Demographics + + + | Address | [address] | | | [place] [address] | + + + | Home Phone [...] Team Providers + +------+ + | Care Goal Umpire Name | Role | Phone | + [...] | | | regional | [place] | [address] | | | | | pain | FAMILY | [address]stop | | | | | syndrome), | MEDICINE P | [id number] | | | | | lower limb | [address] | [place], [place] | | | | | Pain in | [place], | [address] | | | | | joint, lower | [place] [address] | Phone: | | | | | leg | Phone: | [phone] | | | | | Procedures | [phone] | Fax: | | | | | REQUEST TO | Fax: | [phone] | | | | | SURGERY | [phone] | | | | | | EARTHMOVING LABOURER | | | +--------+--------+ + + + [...] | | | 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 | FAMILY | [address]stop | | | | | of lower | MEDICINE P | [address] | | | | | limb | [address] | [place], [place] | | | | | | [place], | [address] | | | | | | [place] [address] | Phone: | | | | | | Phone: | [phone] | | | | | | [phone] | Fax: | | | | | | Fax: | [phone] | | | | | | [phone] | | +--------+--------+ + + + + Encounter Details +--------+---------+ + + + | Date | Type | Department | Care Team | Description | +--------+---------+ + + + | 06/06/ | Office | [facility] Comprehensive | Dale Cantu, | CRPS (complex | | 2011 | Visit | Pain Center at | MD [address] [facility] | regional pain | | | | [facility] | [facility] [address] | syndrome), lower | | | | [address] | [place], [place] | limb; Pain in joint, | | | | Center for Health | [address] | lower leg | | | | and Healing, | [phone] | | | | | | | | | | | Floor [place], [place] | | | | | | [address] | | | | | | [phone] | | | +--------+---------+ + + + [...] Dale Cantu MD - 06/06/2012 11:49 [facility] Pre-Procedure Instructions: The procedure you discussed with your doctor is called: SCS TRIAL LUMBAR [facility]. Please make sure this is scheduled with the Department Editor. Please bring a milk pickup truck driver with you. We may give you medications that make you drowsy or otherw ise unsafe to drive. If you do not have a milk pickup truck driver, we will not be able [...] PLEASE CONTACT THE COMPREHENSIVE PAIN CENTER AT [phone] ([phone]) FOR QUESTIONS OR IF YOU NEED TO CANCEL YOUR APPOINTMENT. [facility] documented in this encounter [...] not signed. Given information. DALE CANTU MD Wood Boatbuilder, [facility] Cyber Security Specialist, Pain Medicine Professor, Anesthesiology & Perioperative Medicine ollHomer manriquez MD - 06/06/2012 11:17 AM PDT [facility] Return Visit with Dr. [...] and a pain drawing which I reviewed. LDR NURSE Brief Pain Inventory: (ten= worst possible pain [...] The Review of Systems obtained by the BRASS CHASER was reviewed. Additional Review of Systems: Bones, [...] up with Dr. Dale Cantu at the [facility] today for left foot CRPS which [...] therapy Homer Elaine MD Pain Medicine Fellow [facility] [place]ons - 11:07 AM PDTCMA History: [...]
--- OUTSIDE RECORDS SUMMARY | ~2020-06-02 | XMS | Encounter Summary ---
Demographics + + + | Address | [address] | | | [place] [address] | + + + | Home Phone [...] Team Providers + +------+ + | Care Package Dye Stand Loader Name | Role | Phone | [...] | 2015 | Encounter | Center at [facility] [address] | MD Melissa | | | | | [address] [facility] | | | | | | for Health and | | | | | | Healing, Building [address] | | | | | | [place], [place] | | | | | | [address] | | | | | | [phone] | | | +--------+ + + + [...]
--- OUTSIDE RECORDS SUMMARY | ~2020-06-02 | XMS | Encounter Summary ---
Demographics + + + | Address | [address] | | | [place] [address] | + + + | Home Phone [...] Providers + +------+ + | Care Visual Merchandise Manager Name | Role | Phone | [...] | | 2016 | | Center at [facility] [address] | | severe stomach Pain) | | | | [address] [facility] | | | | | | for Health and | | | | | | Healing, Building [address] | | | | | | [place], [place] | | | | | | [address] | | | | | | [phone] | | | +--------+ + + + [...]
--- OUTSIDE RECORDS SUMMARY | ~2020-06-02 | XMS | Encounter Summary ---
Demographics + + + | Address | [address] | | | [place] [address] | + + + | Home Phone [...] Team Providers + +------+ + | Care Panel Coverer Name | Role | Phone | + [...] + + | 08/03/ | Refill | [facility] Comprehensive | Alex Sanchez, | Refill Request | | 2018 | | Pain Center at | ,PhD [address] [facility] | (ketamine) | | | | [facility] | [facility] | | | | | [address] | [place], [place] | | | | | [facility] | [address] | | | | | and Martina, | [phone] | | | | | [facility] | | | | | | Floor [place], [place] | | | | | | [address] | | | | | | [phone] | | | +--------+--------+ + + + [...]
--- OUTSIDE RECORDS SUMMARY | ~2020-06-02 | XMS | Encounter Summary ---
Demographics + + + | Address | [address] | | | [place] [address] | + + + | Home Phone [...] Providers + +------+ + | Care Unit Assembler Name | Role | Phone | + +------+ + | Justo Vazquez MD | PCP | | + +------+ + Encounter Details +--------+ + + + + | Date | Type | Department | Care Team | Description | +--------+ + + + + | 01/11/ | Procedure | Diagnostic Imaging | | | | 2016 | Pass | Services at [facility] | | | | | | [address] | | | | | | Giuliana Roberson | | | | | | [facility] | | | | | | [place], [place] | | | | | | [address] | | | | | | [phone] | | | +--------+ + + + [...]
--- OUTSIDE RECORDS SUMMARY | ~2020-06-02 | XMS | Encounter Summary ---
Demographics + + + | Address | [address] | | | [place] [address] | + + + | Home Phone [...] Providers + +------+ + | Care Folder And Notcher Name | Role | Phone | + [...] | Diagnoses | Beulah | Edu Pt Ship'S Surveyor | | | | Therapy | CRPS | Janak Martinez MD | [address] [address] | | | | | (complex | [address] | | | | | regional | [address] | Mailcode: | | | | | pain | Mailstop | [facility] | | | | | syndrome), | [id number] | for Health | | | | | lower limb | [place], [place] | and Healing, | | | | | Gait | [address] | [address] | | | | | disturbance | Phone: | [place], [place] | | | | | Muscle pain | [phone] | [address] | | | | | Procedures | Fax: | Phone: | | | | | PHYSICAL | [phone] | [phone] | | | | | THERAPY | [...] | | | | [place] | [place] [address] | syndrome), lower | | | | [address] | [phone] | limb (Primary Dx) | | | | [facility] | | | | | | and Healing, | | | | | | Building 1, | | | | | | Floor [place], [place] | | | | | | [address] | | | | | | [phone] | | | +--------+---------+ + + + [...] might be different f rom the original. [id number] BRODY FARAH Date of : 1990 Start of care: 02/14/2012 Date of onset: 02/14/2012 Referring/Attending Practitioner: Janak Riojas MD . Primary/Referral Diagnosis/ICD-9: 355.71B CRPS (complex regional pain syndrome), lower limb Insurance: Payor: [facility] [employer] ([employer]) [facility] Plan: BCBS OUT OF STATE Product Type: PP O Service period from: 02/14/2012 to: 08/12/2012 Number visits used/authorized: 12/26 [facility] PHYSICAL THERAPY PROGRESS NOTE SUBJECTIVE: Age: 21 y.o. Sex: female Chief complaint: No chief complaint on file. 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 She is doing much better ov [facility], possibly because she finished school and so has less stress. She stopped using crutch es in early April (18 days ago) which is less stressful. Now she is working at [employer] 2-3 hours per week, and spends a [...] change in their status. Guillermo Sanon MSPBren [facility] Outpatient Rehabilitation Services Mailcode: Ch3p [address] [facility], 1st Floor [facility] [address] documented in this encounter Plan of Treatment Not on filedocumented as of this encounter Procedures + +--------+ + + + | Procedure Name | Priori | Date/Time | Associated Diagnosis | Comments | | | ty | | | | + +--------+ + + + | TN THERAPEUTIC | Routin | 05/03/2012 | CRPS [...]
--- OUTSIDE RECORDS SUMMARY | ~2020-06-02 | XMS | Encounter Summary ---
Demographics + + + | Address | [address] | | | [place] [address] | + + + | Home Phone [...] Providers + +------+ + | Care Lead Infrastructure Architect Name | Role | Phone [...] | pain, | [address] | [address] | | | | | unspecified | [address] | | | | | abdominal | Rd | [place], [place] | | | | | location | [facility] [place] | [address] | | | | | Pain of | [address] | Phone: | | | | | upper | | [phone] | | | | | abdomen | | Fax: | | | | | Complex | | [phone] | | | | | regional | [...] | | | | | | | DIRECTOR OF ACQUISITION MARKETING | | | +--------+---------+ + + + + Reason for Visit + + + | Reason | Comments | + + + | Procedure | | + + + Encounter Details +--------+ + + + + | Date | Type | Department | Care Team | Description | +--------+ + + + + | 08/30/ | Telephone | [facility] | Ilene Bright, | Procedure | | 2017 | | Pain Center at | CINDER BLOCK MAKER [address] | | | | | [facility] | [place], [place] | | | | | [address] | [address] | | | | | [facility] | [phone] | | | | | and Healing, | | | | | | Building | | | | | | Floor [place], [place] | | | | | | [address] | | | | | | [phone] | | | +--------+ + + + [...]
--- OUTSIDE RECORDS SUMMARY | ~2020-06-02 | XMS | Encounter Summary ---
Demographics + + + | Address | [address] | | | [place] [address] | + + + | Home Phone [...] Providers + +------+ + | Care Hand Tool Lapper Name | Role | Phone | + +------+ + | Justo Vazquez MD | PCP | | + +------+ + Encounter Details +--------+ + + + + | Date | Type | Department | Care Team | Description | +--------+ + + + + | 12/07/ | Telephone | [facility] | Alex Sanchez, | | | 2019 | | Pain Center at | ,PhD [address] | | | | | [facility] | [address] | | | | | [address] | [place], [place] | | | | | [place] for [facility] | [address] | | | | | and Healing, | [phone] | | | | | | | | | | | Floor [place], [place] | | | | | | [address] | | | | | | [phone] | | | +--------+ + + + [...]
--- OUTSIDE RECORDS SUMMARY | ~2020-06-02 | XMS | Encounter Summary ---
Demographics + + + | Address | [address] | | | [place] [address] | + + + | Home Phone [...] Providers + +------+ + | Care Electrical Technician Name | Role | Phone [...] + + | 09/14/ | Telephone | [facility] | Alex Sanchez, | Education procedure | | 2018 | | Pain Center at | ,PhD [address] | (preprocedure | | | | [facility] | [address] | education SCS) | | | | [address] | [place], [place] | | | | | [facility] | [address] | | | | | and Healing, | [phone] | | | | | | | | | | | Floor [place], [place] | | | | | | [address] | | | | | | [phone] | | | +--------+ + + + [...]
--- OUTSIDE RECORDS SUMMARY | ~2020-06-02 | XMS | Encounter Summary ---
Demographics + + + | Address | [address] | | | [place] [address] | + + + | Home Phone [...] Providers + +------+ + | Care Physical Metallurgist Name | Role | Phone | + [...] | | | 2019 | Event | [facility] | MD Juan [address] | | | | | and Healing Surgery | [address] | | | | | Center Admitting | [place], [place] | | | | | Desk Located on the | [address] | | | | | 4th floor [address] | [phone] | | | | | [address] [place], | | | | | | [place] [address] | Arben Valerio MD | | | | | | [address] | | | | | | [address] | | | | | | [place], [place] | | | | | | [address] | | | | | | [phone] | | | | | | | [...]
--- OUTSIDE RECORDS SUMMARY | ~2020-06-02 | XMS | Encounter Summary ---
Demographics + + + | Address | [address] | | | [place] [address] | + + + | Home Phone [...] Providers + +------+ + | Care Crop Setting Out Machine Operator Name | Role | [...] | | pain | [address] | [place], [place] | | | | | syndrome | [place] | [address] | | | | | type 1 of | [address] | Phone: | | | | | left lower | Phone: | [phone] | | | | | extremity | [phone] | Fax: | | | | | Midline low | Fax: | [phone] | | | | | back pain | [phone] | | | | | | without [...] Ave | | | | | | [place], [place] | [facility] [place] | | | | | | [address] | [address] | | | | | | Phone: | Phone: | | | | | | [phone] | [phone] | | | | | | Fax: | Fax: | | | | | | [phone] | [phone] | +--------+---------+ + + + + Encounter [...] | | | | [place] | [place], [place] | of left lower | | | | [address] | [address] | extremity (Primary | | | | [facility] | [phone] | Dx); Midline low | | | | and Healing, | | back pain without | | | | Building | | sciatica, | | | | Floor [place], [place] | | unspecified | | | | [address] | | chronicity; | | | | [phone] | | Sacroiliac pain; | | | [...] and help in coping with the pain. BUILDING CARPENTER Brief Pain Inventory: (ten= worst possible pain [...] Hemroidectomy Trial spinal cord stimulator leads 08/02/2012 [facility], Surgeon: Janak Riojas MD [...] a light load. Has been working at [employer], can' t work on crBrightSide Softwareches. Has roommates. Allergies Allergen Reactions Morphine Anaphylaxis [...] as directed by [facility]- 2 gallon bowel prep POLYETHYLENE GLYCOL 3350 17 GRAM/DOSE ORAL POWDER Take 17 g by mouth once daily. PROMETHAZINE 12.5 MG TABLET Take 1 tablet by mouth four times daily as needed for nausea/vo miting. SUCRALFATE 1 GRAM TABLET Take 1 g by mouth four times daily. Radiology/Diagnostic Tests: X-RAY SPINE CERV 4 VIEWS Order: [id number] Performed: 06/12/2018 11:40 Status: Final result Visible [...] that the treatment performed by the chiropractic manager internship, Niesha Reveles, was directly observed by myself the primary chiropractor Lane Reyes DC Visit Diagnoses: ICD-10-CM 1. Complex regional pain syndrome type 1 of left lower extremity G90.522 CONSULT TO PAIN [facility] 2. Midline low back pain without sciatica, unspecified chronicity M54.5 CONSULT TO PAIN [facility] 3. Sacroiliac pain M53.3 CONSULT TO PAIN MANAGEMENT NM CHIROPRAC MANIP,SPINAL,1-2 REGIONS 4. Sacral dysfunction M53.3 NM CHIROPRAC MANIP,SPINAL,1-2 REGIONS 5. Somatic dysfunction of pelvis region M99.05 NM CHIROPRAC MANIP,SPINAL,1-2 REGIONS 6. Somatic dysfunction of sacral region M99.04 NM CHIROPRAC MANIP,SPINAL,1-2 REGIONS Impression: Tracie Farah is [...] verified the above note written by Chiropractic manager internship of our visit wit h this patient as recorded by Lane Reyes DC [facility] CENTER AT [address] Mail Code: Ch15p [place] [address] documented in this e ncounter Plan of Treatment Not on filedocumented as of this encounter Procedures + +--------+ + + + | Procedure Name | Priori | Date/Time | Associated Diagnosis | Comments | | | ty | | | | + +--------+ + + + | NM CHIROPRAC | Routin | 07/10/2019 | Sacroiliac [...]
--- OUTSIDE RECORDS SUMMARY | ~2020-06-02 | XMS | Encounter Summary ---
Demographics + + + | Address | [address] | | | [place] [address] | + + + | Home Phone [...] Providers + +------+ + | Care Mold Loft Worker Name | Role | Phone | [...] Rd | [facility] [address] | | | | | [place], [place] | [place], [place] | | | | | [address] | [address] | | | | | | [phone] | | | | | | | [...] | + +--------+ + + + | MARKETING SALES MANAGER MISC PROCEDURE | Routin | 12/27/2017 | Complex regional | Results for this | | | e | 3:28 PM | pain syndrome type 1 | procedure are in the | | | | PST | of left lower | results section. | | | | | extremity | | + +--------+ + + + documented in this encounter Results [facility] MISC PROCEDURE (12/27/2017 3:28 PM PST) [...]
--- OUTSIDE RECORDS SUMMARY | ~2020-06-02 | XMS | Encounter Summary ---
Demographics + + + | Address | [address] | | | [place] [address] | + + + | Home Phone [...] Providers + +------+ + | Care Mobile Pet Groomer Name | Role | Phone | [...] | | [address] [facility] for | [place], [place] | | | | | Health and Healing, | [address] | | | | | | [phone] | | | | | [place], [place] | | | | | | [address] | | | | | | [phone] | | | +--------+ + + + [...] Note | + + | Service Account, Swoop Res In Interface - 03/08/2018 9:42 AM [...]
--- OUTSIDE RECORDS SUMMARY | ~2020-06-02 | XMS | Encounter Summary ---
Demographics + + + | Address | [address] | | | [place] [address] | + + + | Home Phone [...] Team Providers + +------+ + | Care Perinatal Technician Name | Role | Phone | + +------+ + | Justo Vazquez MD | PCP | | + +------+ + Encounter Details +--------+ + + + + | Date | Type | Department | Care Team | Description | +--------+ + + + + | 01/02/ | Telephone | [facility] | Ilene Bright, | | | 2019 | | Pain Center at | PLACEMENT OFFICER [address] | | | | | [facility] | [place], [place] | | | | | [address] | [address] | | | | | [place] for [facility] | [phone] | | | | | and Healing, | | | | | | | | | | | | Floor [place], [place] | | | | | | [address] | | | | | | [phone] | | | +--------+ + + + [...]
--- OUTSIDE RECORDS SUMMARY | ~2020-06-02 | XMS | Encounter Summary ---
Demographics + + + | Address | [address] | | | [place] [address] | + + + | Home Phone [...] Providers + +------+ + | Care Hospital Fellow Name | Role | Phone | [...] | | | | | unspecified | [facility] | [address] | | | | | location | Rd | [facility] | | | | | Procedures | [place], [place] | Rd [place], | | | | | CONSULT TO | [address] | [place] | | | | | PAIN | | [address] | | | | | MANAGEMENT | | Phone: | | | | | | | [phone] | | | | | | | Fax: | | | | | | | [phone] | +--------+--------+ + + + + Encounter Details +--------+---------+ + + + | Date | Type | Department | Care Team | Description | +--------+---------+ + + + | 05/08/ | Office | [facility] Comprehensive | Alex Sanchez, | Complex regional | | 2018 | Visit | Pain Center at | ,PhD [address] | pain syndrome type 1 | | | | [place] | [facility] [address] | of left lower | | | | [address] | [place], [place] | extremity (Primary | | | | [facility] | [address] | Dx); Pain of upper | | | | and Healing, | [phone] | abdomen; Intractable | | | | | | cyclical vomiting | | | | Floor [place], [place] | | with nausea; | | | | [address] | | Disturbance in sleep | | | | [phone] | | behavior; Abdominal | | | [...] MD,P hD - 05/08/2018 10:30 AM PDT [facility] Comprehensive Pain Center Return Visit Date: 05/08/2018 Chief Complaint Patient presents with Ankle pain Left Foot pain Left History of Present Illness: Tracie Farah is a 27 year old female, whose last appoi ntment at the [facility] was April 19, [...] time that 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 Goes to [employer] college with a light load. Has been working at [employer], can' t work on crLabourNet. Has roommates. Allergies Allergen Reactions Morphine Anaphylaxis [...] by physician. Concentration is 150mg/mL. Compounded by [employer] ) KETOROLAC IM Inject into the muscle [...] as directed by [facility]- 2 gallon bowel prep [...] and summary of old medical records (source: [employer]), as summarized in the body of the [...] by Sonia Key. Alex Sanchez MD PhD Biscuit Packer Anesthesiology and Pain Management [facility] documented in this encounter Plan [...]
--- OUTSIDE RECORDS SUMMARY | ~2020-06-02 | XMS | Encounter Summary ---
Demographics + + + | Address | [address] | | | [place] [address] | + + + | Home Phone [...] Team Providers + +------+ + | Care Lockmaker Name | Role | Phone | + [...] | Diagnoses | Beulah | Edu Pt Pool Cleaner | | | | Therapy | CRPS | Janak Martinez MD | [address] | | | | | (complex | [address] | | | | | regional | [address] | Mailcode: | | | | | pain | Mailstop | [facility] | | | | | syndrome), | [id number] | for Health | | | | | lower limb | [place], [place] | and Healing, | | | | | Gait | [address] | Building [address] | | | | | disturbance | Phone: | [place], [place] | | | | | Muscle pain | [phone] | [address] | | | | | Procedures | Fax: | Phone: | | | | | PHYSICAL | [phone] | [phone] | | | | | THERAPY | [...] regional pain | | | | [facility] | [place] [address] | syndrome), lower | | | | [address] | [phone] | limb (Primary Dx) | | | | [facility] [facility] | | | | | | and Healing, | Specialist, Edu | | | | | Building 1, 1st | Exercise [address] | | | | | Floor [place], [place] | [address] [place], | | | | | [address] | [place] [address] | | | | | [phone] | | | +--------+---------+ + + + [...] might be different f rom the original. [id number] BRODY FARAH Date of : 1990 Start of care: 02/14/2012 Date of onset: 02/14/2012 Referring/Attending Practitioner: Janak Riojas MD . Primary/Referral Diagnosis/ICD-9: 355.71B CRPS (complex regional pain syndrome), lower limb Insurance: Payor: [facility] Plan: BCBS OUT OF STATE Product Type: PP O Service period from: 02/14/2012 to: 08/12/2012 Number visits used/authorized: 02/23 [facility] PHYSICAL THERAPY PROGRESS NOTE SUBJECTIVE: [...] regarding any change in their status. Guillermo aSnon MSPT [facility] Outpatient Rehabilitation Services Mailcode: Ch3p [address] [facility], [address] [place] [address] documented in this encounter Plan of [...]
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
--- OUTSIDE RECORDS SUMMARY | ~2020-06-02 | XMS | Encounter Summary ---
Demographics + + + | Address | [address] | | | [place] [address] | + + + | Home Phone [...] Providers + +------+ + | Care Assistant Manager Name | Role | Phone [...] | 2017 | on | Center at [facility] [address] | [address] | | | | | [address] [place] | [facility] [place] | | | | | for Health and | [address] | | | | | Healing, Building [address] | [phone] | | | | | [place], [place] | | | | | | [address] | | | | | | [phone] | | | +--------+ + + + [...]
--- OUTSIDE RECORDS SUMMARY | ~2020-06-02 | XMS | Encounter Summary ---
Demographics + + + | Address | [address] | | | [place] [address] | + + + | Home Phone [...] Providers + +------+ + | Care Chief Librarian Work With Blind Name | Role | Phone | + +------+ + | Justo Vazquez MD | PCP | | + +------+ + Encounter Details +--------+ + + + + | Date | Type | Department | Care Team | Description | +--------+ + + + + | 10/19/ | Telephone | [facility] | Ilene Bright, | | | 2017 | | Pain Center at | VETERINARY VIROLOGIST [address] | | | | | [facility] | [place], [place] | | | | | [address] | [address] | | | | | [place] for [facility] | [phone] | | | | | and Healing, | | | | | | | | | | | | Floor [place], [place] | | | | | | [address] | | | | | | [phone] | | | +--------+ + + + [...]
--- OUTSIDE RECORDS SUMMARY | ~2020-06-02 | XMS | Encounter Summary ---
Demographics + + + | Address | [address] | | | [place] [address] | + + + | Home Phone [...] Team Providers + +------+ + | Care Workday Consultant Name | Role | Phone | + +------+ + | Allegra Gandhi | PCP | | + +------+ + Encounter Details +--------+ + + + + | Date | Type | Department | Care Team | Description | +--------+ + + + + | 02/13/ | Outside | UNKNOWN DEPARTMENT | Other, Faculty | | | 2011 | Records | [address] [facility] | [phone] | | | | | [address] | | | | | | [place], [place] | | | | | | [address] | | | +--------+ + + + [...]
--- OUTSIDE RECORDS SUMMARY | ~2020-06-02 | XMS | Encounter Summary ---
Demographics + + + | Address | [address] | | | [place] [address] | + + + | Home Phone [...] Team Providers + +------+ + | Care Comprehensive Advisor Name | Role | Phone | + +------+ + | Justo Vazquez MD | PCP | | + +------+ + Encounter Details +--------+ + + + + | Date | Type | Department | Care Team | Description | +--------+ + + + + | 06/12/ | Hospital | Radiology/Imaging | Alex Sanchez, | | | 2018 | Encounter | Lab at [facility] [address] | ,PhD [address] [facility] | | | | | [facility] for | [facility] | | | | | Health and [facility], | [place], [place] | | | | | [place] [address] [facility] | [address] | | | | | Floor [place], [place] | [phone] | | | | | [address] | | | | | | [phone] | | | +--------+ + + + [...]
--- OUTSIDE RECORDS SUMMARY | ~2020-06-02 | XMS | Encounter Summary ---
Demographics + + + | Address | [address] | | | [place] [address] | + + + | Home Phone [...] Providers + +------+ + | Care Youth Services Specialist Name | Role | Phone | + +------+ + | Justo Vazquez MD | PCP | | + +------+ + Encounter Details +--------+ + + + + | Date | Type | Department | Care Team | Description | +--------+ + + + + | 12/28/ | Telephone | [facility] | Ilene Bright, | | | 2019 | | Pain Center at | SOCIOLOGY INSTRUCTOR [address] | | | | | [facility] | [place], [place] | | | | | [address] | [address] | | | | | [place] for [facility] | [phone] | | | | | and Healing, | | | | | | | | | | | | Floor [place], [place] | | | | | | [address] | | | | | | [phone] | | | +--------+ + + + [...]
--- OUTSIDE RECORDS SUMMARY | ~2020-06-02 | XMS | Encounter Summary ---
Demographics + + + | Address | [address] | | | [place] [address] | + + + | Home Phone [...] Providers + +------+ + | Care Research Statistician Name | Role | Phone | + +------+ + | Justo Vazquez MD | PCP | | + +------+ + Encounter Details +--------+ + + + + | Date | Type | Department | Care Team | Description | +--------+ + + + + | 08/30/ | Documentati | Pain Center at [facility] | Jamel Madden G, | | | 2018 | on | [address] | PhD [address] | | | | | Center for Health | [place], [place] | | | | | and Healing, | [address] | | | | | | [phone] | | | | | Floor [place], [place] | | | | | | [address] | | | | | | [phone] | | | +--------+ + + + [...]
--- OUTSIDE RECORDS SUMMARY | ~2020-06-02 | XMS | Encounter Summary ---
Demographics + + + | Address | [address] | | | [place] [address] | + + + | Home Phone [...] Providers + +------+ + | Care Medicare Interviewer Name | Role | Phone | + [...]
--- OUTSIDE RECORDS SUMMARY | ~2020-06-02 | XMS | Encounter Summary ---
Demographics + + + | Address | [address] | | | [place] [address] | + + + | Home Phone [...] Providers + +------+ + | Care Leather Colorer Name | Role | Phone | + [...] + + | 12/05/ | Surgery | [facility] | Alex Sanchez, | BILATERAL DORSAL | | 2019 | | Center for Health | ,PhD [address] | ROOT GANGLION SPINAL | | | | and Healing Surgery | [address] | CORD STIMULATOR | | | | Center Admitting | [place], [place] | IMPLANT LUMBAR; | | | | Desk Located on the | [address] | POSTERIOR | | | | 4th floor [address] | [phone] | | | | | [address] [place], | | | | | | [place] [address] | | | +--------+---------+ + + + [...] s/p successful DRG trial lead system with [employer] System on 09/25/2018. No changes in H&P, [...] OPERATIVE NOTE Date: December 05, 2018 Location: [facility] [place] | | | Tracie Farah [id number] :1990, presents to clinic | | | for: Dorsal root ganglion stimulator implant PROCEDURE: Dorsal | | | root ganglion stimulator implant PRE-OPERATIVE DIAGNOSIS: Complex | | | regional Pain syndrome type 1 of left lower extremity | | | POST-OPERATIVE DIAGNOSIS: Complex regional Pain syndrome type 1 of | | | left lower extremity ATTENDING PHYSICIAN: Alex Sanchez | | | HOME HEALTH CLINICAL SUPERVISOR: Arben Valerio MD ANESTHESIA: sedation by IVIS Cole | | | Carmen, supervised by galvanometer assembler Ilir Valdes. | | | FINDINGS: Appropriate [...] sedation. Ms. Farah was escorted to the [facility] | | | [place], where she [...] to the | | | [facility] community engagement representative. A test stimulation was performed and [...] recovery. Images were saved, and sent to [employer]. | | | Alex Sanchez (attending) was present for the entire procedure. | | | Arben Valerio MD I was present for the entire procedure | | | (spinal cord stimulator implantation with DRG leads at left L4 and | | | L5) and all bocanegra elements of this visit. I reviewed the | | | documentation of the other READING TUTOR providers and concur with | | | Iman's findings. I edited his note. Alex Sanchez, | | | ,PhD [facility] Anesthesiology [facility] Pain Management | | | [facility] | | + + + HCG [...] + | JOSE ANTONIO MIN | [address] | [place] [address] | | | OF CARE TESTS | [...]
--- OUTSIDE RECORDS SUMMARY | ~2020-06-02 | XMS | Encounter Summary ---
Demographics + + + | Address | [address] | | | [place] [address] | + + + | Home Phone [...] Providers + +------+ + | Care Box Finisher Name | Role | Phone | [...] on | Pain Center at | [address] [facility] | evaluation (No | | | | [facility] | [facility] [id number] | evidence of drug | | | | [address] | [place], [place] | abuse) | | | | [facility] | [address] | | | | | and Healing, | [phone] | | | | | [facility] | | | | | | Floor [place], [place] | | | | | | [address] | | | | | | [phone] | | | +--------+ + + + [...]
--- OUTSIDE RECORDS SUMMARY | ~2020-06-02 | XMS | Encounter Summary ---
Demographics + + + | Address | [address] | | | [place] [address] | + + + | Home Phone [...] Providers + +------+ + | Care Registered Pharmacy Technician Name | Role | Phone | + +------+ + | Justo Vazquez MD | PCP | | + +------+ + Encounter Details +--------+ + + + + | Date | Type | Department | Care Team | Description | +--------+ + + + + | 01/02/ | Telephone | [facility] | Ilene Bright, | | | 2019 | | Pain Center at | INFORMATION STRATEGIST [address] | | | | | [facility] | [place], [place] | | | | | [address] | [address] | | | | | [place] for [facility] | [phone] | | | | | and Healing, | | | | | | | | | | | | Floor [place], [place] | | | | | | [address] | | | | | | [phone] | | | +--------+ + + + [...]
--- OUTSIDE RECORDS SUMMARY | ~2020-06-02 | XMS | Encounter Summary ---
Demographics + + + | Address | [address] | | | [place] [address] | + + + | Home Phone [...] Team Providers + +------+ + | Care Hyperion Developer Name | Role | Phone | [...] | | 2015 | | Center at [facility] [address] | MD Melissa | | | | | [address] [facility] | | | | | | for Health and | | | | | | [facility], [address] | | | | | | [place], [place] | | | | | | [address] | | | | | | [phone] | | | +--------+ + + + [...]
--- OUTSIDE RECORDS SUMMARY | ~2020-06-02 | XMS | Encounter Summary ---
Demographics + + + | Address | [address] | | | [place] [address] | + + + | Home Phone [...] Providers + +------+ + | Care Salesperson Driver Name | Role | Phone | [...] Closed | | Orthopedics | Diagnoses | [place], | [facility] | | | | | Adjustment | Ranjeet Odom MD | Ch[address] | | | | | disorder, | [address] | [address] | | | | | unspecified | Ave | Center for | | | | | type | [facility] [place] | Health and | | | | | Procedures | [address] | Healing, | | | | | CONSULT TO | Phone: | Building 1, | | | | | BEHAVIORAL | [phone] | 12th Floor | | | | | HEALTH/PSYCH | Fax: | [place], [place] | | | | | CHRISTINA - | [phone] | [address] | | | | | ADULT | | Phone: | | | | | | | [phone] | | | | | | | Fax: | | | | | | | [phone] | +--------+--------+ + + + + Reason [...] | | syndrome | [address] | [place], [place] | | | | | type 1 of | Rd | [address] | | | | | left lower | [place], [place] | Phone: | | | | | extremity | [address] | [phone] | | | | | Procedures | Phone: | Fax: | | | | | CONSULT TO | [phone] | [phone] | | | | | ORTHOPEDICS | Fax: | | | | | | AND | [phone] | | | | | | REHABILITATI [...] | 2018 | Visit | Faculty at [facility] | [address] | (Primary Dx); Left | | | | for Health and | [place], [place] | ankle pain, | | | | Healing [address] | [address] | unspecified | | | | [facility] for | [phone] | chronicity; | | | | Health and Healing, | | Adjustment disorder, | | | | Building | | unspecified type | | | | Floor [place], [place] | | | | | | [address] | | | | | | [phone] | | | +--------+---------+ + + + [...] Hemroidectomy Trial spinal cord stimulator leads 08/02/2012 [facility], Surgeon: Janak Riojas MD Cholecystectomy [...] by physician. Concentration is 150mg/mL. Compounded by [employer] ([phone]) levonorgestrel (MIRENA) 20 mcg/24 hr Intrauterine IUD [...] oral recon soln Take as directed by [facility] [address] [facility]- 2 gallon bowel prep polyethylene glycol [...] the [facility] and personally formulated the plan with [...] become. f/u open ended Ranjeet Amanda M.D. Ceramic Tile Mechanic Foot and Ankle Surgery Department of Orthopedics & Rehabilitation [facility] [phone] >60 mins face to face consultation was [...]
--- OUTSIDE RECORDS SUMMARY | ~2020-06-02 | XMS | Encounter Summary ---
Demographics + + + | Address | [address] | | | [place] [address] | + + + | Home Phone [...] Team Providers + +------+ + | Care Armature Winder [employer]otive Name | Role | Phone | + +------+ + | Justo Vazquez MD | PCP | | + +------+ + Encounter Details +--------+ + + + + | Date | Type | Department | Care Team | Description | +--------+ + + + + | 12/28/ | Field Tax Auditor | [facility] | Alex Sanchez, | Arthralgia of lower | | 2018 | | Pain Center at | ,PhD [address] | leg, unspecified | | | | [facility] | [address] | laterality (Primary | | | | [address] | [place], [place] | Dx) | | | | Center for Health | [address] | | | | | and Healing, | [phone] | | | | | | | | | | | Floor [place], [place] | | | | | | [address] | | | | | | [phone] | | | +--------+ + + + [...]
--- OUTSIDE RECORDS SUMMARY | ~2020-06-02 | XMS | Encounter Summary ---
Demographics + + + | Address | [address] | | | [place] [address] | + + + | Home Phone [...] Providers + +------+ + | Care Legal Editor Name | Role | Phone | [...] Medication Question | | 2016 | | [place] [address] [address] | | | | | | [address] [facility] | | | | | | for Health and | | | | | | Healing, [facility] | | | | | | [place], [place] | | | | | | [address] | | | | | | [phone] | | | +--------+ + + + [...]
--- OUTSIDE RECORDS SUMMARY | ~2020-06-02 | XMS | Encounter Summary ---
Demographics + + + | Address | [address] | | | [place] [address] | + + + | Home Phone [...] Providers + +------+ + | Care Fish Technologist Name | Role | Phone | + +------+ + | Justo Vazquez MD | PCP | | + +------+ + Encounter Details +--------+ + + + + | Date | Type | Department | Care Team | Description | +--------+ + + + + | 12/02/ | Document-Sc | Health Information | Unknown . | | | 2017 | anned | Services [address] | | | | | | [address] | | | | | | Mailcode: [id number] | | | | | | [facility] | | | | | | [place], [place] | | | | | | [address] | | | | | | [phone] | | | +--------+ + + + [...]
--- OUTSIDE RECORDS SUMMARY | ~2020-06-02 | XMS | Encounter Summary ---
Demographics + + + | Address | [address] | | | [place] [address] | + + + | Home Phone [...] Team Providers + +------+ + | Care Spinning Doffer Name | Role | Phone | [...] | | | | regional | ,PhD [address] | | | | | | pain | [address] | | | | | | syndrome | [address] | | | | | | type 1 of | Rd | | | | | | left lower | [place], [place] | | | | | | extremity | [address] | | | | | | Other | Phone: | | | | | | chronic pain | [phone] | | | | | | S/P | Fax: | | | | | | insertion of | [phone] | | | | | | spinal [...] | | | | regional | ,PhD 1906 | | | | | | pain | [address] | | | | | | syndrome | [address] | | | | | | type 1 of | Rd | | | | | | left lower | [place], [place] | | | | | | extremity | [address] | | | | | | Other | Phone: | | | | | | chronic pain | [phone] | | | | | | S/P | Fax: | | | | | | insertion of | [phone] | | | | | | spinal [...] + | 04/26/ | Telephone | [facility] | Alex Sanchez, | | | 2019 | | Pain Center at | ,PhD [address] | | | | | [facility] | [address] | | | | | [address] | [place], [place] | | | | | [facility] | [address] | | | | | and Healing, | [phone] | | | | | | | | | | | Floor [place], [place] | | | | | | [address] | | | | | | [phone] | | | +--------+ + + + [...]
--- OUTSIDE RECORDS SUMMARY | ~2020-06-02 | XMS | Encounter Summary ---
Demographics + + + | Address | [address] | | | [place] [address] | + + + | Home Phone [...] Team Providers + +------+ + | Care Label Machine Operator Name | Role | Phone [...] | | | regional | [place] | [address] | | | | | pain | FAMILY | [address] | | | | | syndrome), | MEDICINE P | [id number] | | | | | lower limb | [address] | [place], [place] | | | | | Gait | [place], | [address] | | | | | disturbance | [place] [address] | Phone: | | | | | Muscle pain | Phone: | [phone] | | | | | Procedures | [phone] | Fax: | | | | | REQUEST TO | Fax: | [phone] | | | | | SURGERY | [phone] | | | | | | RADIO INSTALLER | | | +--------+--------+ + + + + Encounter Details +--------+ + + + + | Date | Type | Department | Care Team | Description | +--------+ + + + + | 03/01/ | Procedure | Pain Center at [facility] | Dale Cantu, | Foot pain (left); | | 2011 | | [address] | [address] | Procedure | | | | Center for Health | [id number] | | | | | and Healing, | [place], [place] | | | | | [facility] | [address] | | | | | Floor [place], [place] | [phone] | | | | | [address] | | | | | | [phone] | | | +--------+ + + + [...] migh t be different from the original. [facility] Patient Instructions - Post Interventional Procedure Date: 03/01/2012 Name: Tracie Farah Date of : 1990 Procedure Performed: LUMBAR SYMPATHETIC BLOCK. Procedure Provider: Dale Cantu If you have any problems you believe are associated with your procedure tonight, Please call the Hospital Cloth Shrinker, and ask for the Pain Management Consu ltant. If you have problems or questions between 9:00 am and 4:00 pm, Please call the [facility] Nurse Triage Line, . If [...] to the larry ent. LAKEISHA HERRING MD [facility] documented in this encounter Progress Notes Dale Cantu MD - 03/01/2012 2:21 PM PDTI was present for the entire procedure (lumbar sympathetic block) and all bocanegra elements of this visit. I reviewed the documentation of the other BALL FRINGE MACHINE OPERATOR providers and concur with Dr. Herring's [...] benefit from multidisciplinary treatment. DALE CANTU MD Substation Operator Helper, [facility] Pain Center Temperature Control Inspector, Pain Medicine Professor, Anesthesiology & Perioperative Medicine NAEiDiana scott RN - 03/01/2012 1:35 PM PDT PRE-SEDATION: Date: March 01, 2012 Tracie Farah [id number] 1990 ALLERGIES: Morphine Previous reaction to Sedation/Analgesia: MEDICATIONS: Current Outpatient Prescriptions Medication DULoxetine (CYMBALTA) 30 mg Oral Capsule, Delayed Release(E.C.) HYDROcodone-acetaminophen (NORCO) 10-325 mg Oral Tablet levonorgestrel (MIRENA) 20 mcg/24 hr Intrauterine IUD LORazepam 1 mg Oral Tablet promethazine 25 mg Oral Tablet Meets NPO Guidelines. IV ACCESS: IV in Place IV Start Time 02965, 22g, DRH BASELINE VS: See Sedation Flow Sheet. Tracie Farah [id number] 1990, presents to clinic for: Procedure: Lumbar [...] ml. 1344: Procedure complete. Pt returned to norman 1 per man in stable condiotion. IV [...] NOTE Date: March 01, 2012 Location: [facility] Procedure Room Tracie Donalds[facility] [id number] :1990, presents to clinic for: PROCEDURE: Lumbar sympathetic block LEVEL/LATERALITY: left L3 PRE-OPERATIVE DIAGNOSIS: 355.71B CRPS (complex regional pain syndrome), lower limb 719.46 Pain in joint, lower leg POST-OPERATIVE DIAGNOSIS: 355.71B CRPS (complex regional pain syndrome), lower limb 719.46 Pain in joint, lower leg ATTENDING PHYSICIAN: Dale Cantu WIND UP WORKER: Fellow Lakeisha Herring MD ANESTHESIA: sedation delivered [...] Ms. Farah was escorted to the [facility] Procedure Ro om, where she was positioned [...] compromise. Ms. Farah was transported to the [facility] Pain Center post-procedure recovery area [...] block. Images were saved, and sent to [employer]. Ms. Farah will have her next appointment [...] + +--------+ + + + | AK INJECT NERV | Routin | 03/01/2012 | CRPS (complex | | | BLCK,PARAVERT | e | 2:20 PM | regional pain | | | SYMPATH | | PDT | syndrome), lower | | | | | | limb Pain in joint, | | | | | | lower leg | | + +--------+ + + + | AK LOCM 100-199 | Routin | 03/01/2012 | CRPS (complex | | | MG/MLICON | e | 1:53 PM | regional pain | | | | | PDT | syndrome), lower | | | | | | limb Pain in joint, | | | | | | lower leg | | + +--------+ + + + | AK INJ BUPIVACAINE | Routin | 03/01/2012 | [...]
--- OUTSIDE RECORDS SUMMARY | ~2020-06-02 | XMS | Encounter Summary ---
Demographics + + + | Address | [address] | | | [place] [address] | + + + | Home Phone [...] Providers + +------+ + | Care Visual Design Lead Name | Role | Phone | [...] | | | | | extremity | [address] | [address] | | | | | Procedures | Phone: | Phone: | | | | | REQUEST TO | [phone] | [phone] | | | | | SURGERY | Fax: | Fax: | | | | | MUSEUM ATTENDANT | [phone] | [phone] | +--------+---------+ + + + + Encounter Details +--------+---------+ + + + | Date | Type | Department | Care Team | Description | +--------+---------+ + + + | 12/07/ | Office | [facility] Comprehensive | Eulogio | Complex regional | | 2019 | Visit | Pain Center at | MD Irene [address] | pain syndrome type 1 | | | | [facility] | [address] [place], | of left lower | | | | [address] | [place] [address] | extremity (Primary | | | | [facility] | [phone] | Dx); S/P insertion | | | | and Healing, | | of spinal cord | | | | Building , | | stimulator | | | | Floor [place], [place] | | | | | | [address] | | | | | | [phone] | | | +--------+---------+ + + + [...] Lujan MD - 12/07/2018 9:10 AM PST [facility] Pain Center Return Visit Date: 12/07/2018 Chief Complaint Patient presents with Back pain Pain in left leg History of Present Illness: Tracie Farah is a 28 year old female, whose last appoi ntment at the [facility] was December 05, 2018, for a procedure [...] her 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 Goes to [email or web address] with a light load. Has been working at [email or web address], can' t work on [employer]. Has roommates. Allergies Allergen Reactions Morphine [...] and summary of old medical records (source: [employer]), as summarized in the body of the [...] present for the encounter. Irene Krishnan MD [facility] COMPREHENSIVE PAIN CENTER AT [place] [id number] [facility], 4th Floor Mail Code: [address] [id number] documented in thi s encounter Plan of Treatment Not on filedocumented as of this encounter Visit Diagnoses + + | Diagnosis | + + | Complex regional pain syndrome type 1 of left lower extremity - Primary | + + | S/P insertion of spinal cord stimulator | + + documented in this encounter
--- OUTSIDE RECORDS SUMMARY | ~2020-06-02 | XMS | Encounter Summary ---
Demographics + + + | Address | [address] | | | [place] [address] | + + + | Home Phone [...] Team Providers + +------+ + | Care Electroformer Name | Role | Phone | + +------+ + | Justo Vazquez MD | PCP | | + +------+ + Encounter Details +--------+ + + + + | Date | Type | Department | Care Team | Description | +--------+ + + + + | 03/16/ | Telephone | [facility] | Crys Gomez, | | | 2016 | | Center at [facility] [address] | [address] | | | | | [address] [place] | [address] | | | | | [facility] and | [place], [place] | | | | | [facility], [facility] 2 | [address] | | | | | [place], [place] | [phone] | | | | | [address] | | | | | | [phone] | | | +--------+ + + + [...]
--- OUTSIDE RECORDS SUMMARY | ~2020-06-02 | XMS | Encounter Summary ---
Demographics + + + | Address | [address] | | | [place] [address] | + + + | Home Phone [...] Providers + +------+ + | Care Die Equipment Operator Name | Role | Phone [...] Oliveira | | 2011 | IP | [address] | | House - Approved | | | | [place]don[place], | | | | | | [place] [address] | | | +--------+ + + + [...]
--- OUTSIDE RECORDS SUMMARY | ~2020-06-02 | XMS | Encounter Summary ---
Demographics + + + | Address | [address] | | | [place] [address] [...] [place] | | | | | [facility] | [facility], | | | | | [address] | [place] [address] | | | | | [facility] | [phone] | | | | | and Healing, | | | | | | [facility] | | | | | | [place], [place] | | | | | | [address] | | | | | | [phone] | | | +--------+ + + + [...]
--- OUTSIDE RECORDS SUMMARY | ~2020-06-02 | XMS | Encounter Summary ---
Demographics + + + | Address | [address] | | | [place] [address] | + + + | Home Phone [...] Providers + +------+ + | Care Steward/Stewardess Banquet Name | Role | Phone | [...] + + | 08/07/ | Refill | [facility] | Alex Sanchez, | Refill Request | | 2018 | | Pain Center at | ,PhD [address] | | | | | [facility] | [address] | | | | | [address] | [place], [place] | | | | | [facility] | [address] | | | | | and [place], | [phone] | | | | | [facility] | | | | | | Floor [place], [place] | | | | | | [address] | | | | | | [phone] | | | +--------+--------+ + + + [...]
--- OUTSIDE RECORDS SUMMARY | ~2020-06-02 | XMS | Encounter Summary ---
Demographics + + + | Address | [address] | | | [place] [address] | + + + | Home Phone [...] Providers + +------+ + | Care Lead C Developer Name | Role | Phone [...] Medical Records | | 2017 | | [place] [facility] [address]85 | MD Melissa | Review | | | | [address] [facility] | | | | | | for Health and | | | | | | [facility], [facility] 2 | | | | | | [place], [place] | | | | | | [address] | | | | | | [phone] | | | +--------+ + + + [...]
--- OUTSIDE RECORDS SUMMARY | ~2020-06-02 | XMS | Encounter Summary ---
Demographics + + + | Address | [address] | | | [place] [address] | + + + | Home Phone | | + + + | Preferred Language | Unknown | + + + | Marital Status | Single | + + + | Buddhism Affiliation | 1073 | + + + [...] [place] | | | | | [address] | | + + + + + | Bryant Farah | ERICKA | Unknown | | + + + + + Care Team Providers + +------+ + | Care Tool Repairer Name | Role | Phone | + +------+ + PCP | Unavailable | + +------+ + Encounter Details +--------+ + + + + | Date | Type | Department | Care Team | Description | +--------+ + + + + | 08/11/ | Hospital | [facility] | | | | 1998 | Encounter | MED CTR XRAY [address] | | | | | | Vandana Garcia | | | | | | [place] [address] | | | | | | [phone] | | | +--------+ + + + [...]
--- OUTSIDE RECORDS SUMMARY | ~2020-06-02 | XMS | Encounter Summary ---
Demographics + + + | Address | [address] | | | [place] [address] | + + + | Home Phone [...] | Orthopedics (discuss | | | | [facility] | [address] | ortho appointment) | | | | [address] | [place], [place] | | | | | [facility] | [address] | | | | | and Healing, | [phone] | | | | | Building | | | | | | Floor [facility] [place] | | | | | | [address] | | | | | | [phone] | | | +--------+ + + + [...]
--- OUTSIDE RECORDS SUMMARY | ~2020-06-02 | XMS | Encounter Summary ---
Demographics + + + | Address | [address] | | | [place] [address] | + + + | Home Phone [...] + + | 10/09/ | Telephone | [facility] | Alex Sanchez, | | | 2018 | | Pain Center at | ,PhD [address] | | | | | [facility] | [address] | | | | | [address] | [place], [place] | | | | | [place] for [facility] | [address] | | | | | and Healing, | [phone] | | | | | | | | | | | Floor [place], [place] | | | | | | [address] | | | | | | [phone] | | | +--------+ + + + [...]
--- OUTSIDE RECORDS SUMMARY | ~2020-06-02 | XMS | Encounter Summary ---
Demographics + + + | Address | [address] | | | [place] [address] | + + + | Home Phone [...] Team Providers + +------+ + | Care Player Development Executive Name | Role | Phone | + +------+ + | Justo Vazquez MD | PCP | | + +------+ + Encounter Details +--------+ + + + + | Date | Type | Department | Care Team | Description | +--------+ + + + + | 12/27/ | Ancillary | [facility] | Alex Sacnhez, | | | 2018 | Orders | Pain Center at | ,PhD [address] | | | | | [facility] | [address] | | | | | [address] | [place], [place] | | | | | [place] for [facility] | [address] | | | | | and Healing, | [phone] | | | | | | | | | | | Floor [place], [place] | | | | | | [address] | | | | | | [phone] | | | +--------+ + + + [...]
--- OUTSIDE RECORDS SUMMARY | ~2020-06-02 | XMS | Encounter Summary ---
Demographics + + + | Address | [address] | | | [place] [address] | + + + | Home Phone [...] + +------+ + | Care Senior Sales Associate Name | Role | Phone | + +------+ + | Justo Vazquez MD | PCP | | + +------+ + Encounter Details +--------+ + + + + | Date | Type | Department | Care Team | Description | +--------+ + + + + | 09/20/ | Telephone | [facility] | Ilene Bright, | | | 2017 | | Pain Center at | JOINERY FACTORY WORKER [address] | | | | | [facility] | [place], [place] | | | | | [address] | [address] | | | | | [place] for [facility] | [phone] | | | | | and Healing, | | | | | | | | | | | | Floor [place], [place] | | | | | | [address] | | | | | | [phone] | | | +--------+ + + + [...]
--- OUTSIDE RECORDS SUMMARY | ~2020-06-02 | XMS | Encounter Summary ---
[...] Providers + +------+ + | Care Geriatric Physical Therapist Name | Role | Phone | + +------+ + | Justo Vazquez MD | PCP | | + +------+ + Encounter Details +--------+ + + + + | Date | Type | Department | Care Team | Description | +--------+ + + + + | 05/12/ | MyChart | Pain Center at [facility] | Ewa Melchor, | RE: Schedule change | | 2017 | Encounter | [address] | SEWING MACHINE REPAIRER HELPER [address] | | | | | [place] for [facility] | [address] | | | | | and Healing, | [place] [address] | | | | | | [phone] | | | | | Floor [place], [place] | | | | | | [address] | | | | | | [phone] | | | +--------+ + + + [...]
--- OUTSIDE RECORDS SUMMARY | ~2020-06-02 | XMS | Encounter Summary ---
Demographics + + + | Address | [address] | | | [place] [address] | + + + | Home Phone [...] Providers + +------+ + | Care Core Drill Operator Helper Name | Role | [...] Complex | Alex Alba, | [facility] [address] | | | | | regional | ,PhD [address] | Pavilion | | | | | pain | [address] | | | | | syndrome | [address] | [address], | | | | | type 1 of | Rd | Basement | | | | | left lower | [place], [place] | [place], [place] | | | | | extremity | [address] | [address] | | | | | Muscle pain | Phone: | Phone: | | | | | Procedures | [phone] | [phone] | | | | | NM BONE | Fax: | Fax: | | | | | &/OR JOINT | [phone] | [phone] | | | | | IMAGING | [...] | | 2018 | Encounter | at [facility] [address] | ,PhD [address] [facility] | | | | | [address] | [address] | | | | | [address], | [place], [place] | | | | | [facility], | [address] | | | | | [place] [address] | [phone] | | | | | [phone] | | | +--------+ + + + [...]
--- OUTSIDE RECORDS SUMMARY | ~2020-06-02 | XMS | Encounter Summary ---
Demographics + + + | Address | [address] | | | [place] [address] | + + + | Home Phone [...] Providers + +------+ + | Care Veterinary Practitioner Name | Role | Phone | + +------+ + | Justo Vazquez MD | PCP | | + +------+ + Encounter Details +--------+ + + + + | Date | Type | Department | Care Team | Description | +--------+ + + + + | 10/03/ | Telephone | [facility] | Ilene Bright, | | | 2017 | | Pain Center at | BULL FLOAT FINISHER [address] | | | | | [facility] | [place], [place] | | | | | [address] | [address] | | | | | [place] for [facility] | [phone] | | | | | and Healing, | | | | | | | | | | | | Floor [place], [place] | | | | | | [address] | | | | | | [phone] | | | +--------+ + + + [...]
--- OUTSIDE RECORDS SUMMARY | ~2020-06-02 | XMS | Encounter Summary ---
Demographics + + + | Address | [address] | | | [place] [address] | + + + | Home Phone [...] Providers + +------+ + | Care Animal Warden Name | Role | Phone | [...] | | | | | extremity | [address] | [address] | | | | | Procedures | Phone: | Phone: | | | | | REQUEST TO | [phone] | [phone] | | | | | SURGERY | Fax: | Fax: | | | | | LASTING FLOORWORKER | [phone] | [phone] | +--------+---------+ + + + + Encounter Details +--------+---------+ + + + | Date | Type | Department | Care Team | Description | +--------+---------+ + + + | 12/22/ | Office | [facility] | Ilene Bright, | Complex regional | | 2019 | Visit | Pain Center at | PHYSICIAN EXTENDER [address] | pain syndrome type 1 | | | | [facility] | [place], [place] | of left lower | | | | [address] | [address] | extremity; S/P | | | | [place] for [facility] | [phone] | insertion of spinal | | | | and Healing, | | cord stimulator | | | | Building | | | | | | Floor [place], [place] | | | | | | [address] | | | | | | [phone] | | | +--------+---------+ + + + [...] fo r your reference. - The [place] benefits representative met with you and made adjustments to your stimulator. I spoke w ith the benefits representative and she is happy with your [...] call [facility] the [facility] [place]. It was great to see you again, documented in this encounter Progress Notes Ilene Bright, PHYSICIAN EXTENDER - 12/22/2018 11:00 AM PSTFormatting of this note might be different fr om the original. [facility] Return Visit Date: 12/22/2018 Chief Complaint Patient presents with Low back pain Pain in left leg History of Present Illness: Tracie Farah is a 28 year old female, whose last appoi ntment at the [facility] was 12/07/2018 following her [...] order to tolerate her incision site pain. 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 Goes to [employer] with a light load. Has been working at [employer], can' t work on [employer]. Has roommates. Allergies Allergen Reactions Morphine [...] with nausea Abdominal pain Abdominal scar neuroma [facility] CLINICAL PROTOCOL PATIENT (CLNPRO) - Implanted Spinal [...] medical records (source: [facility], [facility] Everywhere), [...] taking for her surgical incision. The [facility] benefits representative visited the patient in order to [...] ed by Collin Salomon. Ilene Childs DNP, PHYSICIAN EXTENDER-C [facility] [address] [place] [address] mith, Charline Torres MA - 12/22/2018 11:00 [...]
--- OUTSIDE RECORDS SUMMARY | ~2020-06-02 | XMS | Encounter Summary ---
Demographics + + + | Address | [address] | | | [place] [address] | + + + | Home Phone [...] Providers + +------+ + | Care Brick Siding Applicator Name | Role | Phone | + +------+ + | Justo Vazquez MD | PCP | | + +------+ + Encounter Details +--------+ + + + + | Date | Type | Department | Care Team | Description | +--------+ + + + + | 01/06/ | Document-Co | [facility] | Alex Sanchez, | | | 2018 | annemily | Pain Center at | ,PhD [address] | | | | | [facility] | [facility] [address] | | | | | [address] | [place], [place] | | | | | [place] for [facility] | [address] | | | | | and Healing, | [phone] | | | | | | | | | | | Floor [place], [place] | | | | | | [address] | | | | | | [phone] | | | +--------+ + + + [...]
--- OUTSIDE RECORDS SUMMARY | ~2020-06-02 | XMS | Encounter Summary ---
Demographics + + + | Address | [address] | | | [place] [address] | + + + | Home Phone [...] Team Providers + +------+ + | Care Collection Systems Foreman Name | Role | Phone | + +------+ + | Justo Vazquez MD | PCP | | + +------+ + Encounter Details +--------+ + + + + | Date | Type | Department | Care Team | Description | +--------+ + + + + | 05/14/ | Telephone | [facility] | Alex Sanchez, | | | 2019 | | Pain Center at | ,PhD [address] | | | | | [facility] | [address] | | | | | [address] | [place], [place] | | | | | [place] for [facility] | [address] | | | | | and Healing, | [phone] | | | | | | | | | | | Floor [place], [place] | | | | | | [address] | | | | | | [phone] | | | +--------+ + + + [...]
--- OUTSIDE RECORDS SUMMARY | ~2020-06-02 | XMS | Encounter Summary ---
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 | | | | Therapy | CRPS | Janak Martinez MD | [address] | | | | | (complex | [address] | | | | | regional | [address] | Mailcode: | | | | | pain | Mailstop | [facility] | | | | | syndrome), | [id number] | for Health | | | | | lower limb | [place], [place] | and Healing, | | | | | Gait | [address] | Building 1 | | | | | disturbance | Phone: | [place], [place] | | | | | Muscle pain | [phone] | [address] | | | | | Procedures | Fax: | Phone: | | | | | PHYSICAL | [phone] | [phone] | | | | | THERAPY | [...] | | | | [place] | [place] [address] | syndrome), lower | | | | [address] | [phone] | limb (Primary Dx) | | | | [facility] | | | | | | and Healing, | | | | | | Building 1, | | | | | | Floor [place], [place] | | | | | | [address] | | | | | | [phone] | | | +--------+---------+ + + + [...] might be different f rom the original. [id number] BRODY FARAH Date of : 1990 Start of care: 02/14/2012 Date of onset: 02/14/2012 Referring/Attending Practitioner: Janak Riojas MD . Primary/Referral Diagnosis/ICD-9: 355.71B CRPS (complex regional pain syndrome), lower limb Insurance: Payor: [facility] Plan: BCBS OUT OF STATE Product Type: PP O Service period from: 02/14/2012 to: 08/12/2012 Number visits used/authorized: 01/23 [facility] PHYSICAL THERAPY PROGRESS NOTE SUBJECTIVE: Age: 21 y.o. Sex: female Chief complaint: No chief complaint on file. Current: pt has been doing her neck exercises. She is not shaking as much. Her foot hurts t bruno. Now she is working at [employer] 2-3 hours per week, and spends a [...] their status. Guillermo Sanon MSPT [facility] Outpatient Rehabilitation Services Mailcode: Ch3b 7322 [facility], [address] [place] [address] documented in this encounter Plan of [...]
--- OUTSIDE RECORDS SUMMARY | ~2020-06-02 | XMS | Encounter Summary ---
Demographics + + + | Address | [address] | | | [place] [address] | + + + | Home Phone [...] + +------+ + | Care Field Sales Specialist Name | Role | Phone | + +------+ + | Justo Vazquez MD | PCP | | + +------+ + Encounter Details +--------+------+ + + + | Date | Type | Department | Care Team | Description | +--------+------+ + + + | 12/14/ | Lab | Laboratory at [facility] | | Complex regional | | 2018 | | [address] | | pain syndrome type 1 | | | | Center for [facility] | | of left lower | | | | and Healing, | | extremity; Muscle | | | | Building 2 | | pain | | | | [place], [place] | | | | | | [address] | | | | | | [phone] | | | +--------+------+ + + + [...] | + + + + + | [facility] [employer] | [address] | [place] [address] | | | LILLIAN CROSS | GUILLERMO [...]
--- OUTSIDE RECORDS SUMMARY | ~2020-06-02 | XMS | Encounter Summary ---
Demographics + + + | Address | [address] | | | [place] [address] | + + + | Home Phone [...] Providers + +------+ + | Care Wet Room Supervisor Name | Role | Phone [...] at [facility] [address] | | | | | | [address] [facility] | | | | | | for Health and | | | | | | Healing, Building 2 | | | | | | [place], [place] | | | | | | [address] | | | | | | [phone] | | | +--------+--------+ + + + [...]
--- OUTSIDE RECORDS SUMMARY | ~2020-06-02 | XMS | Encounter Summary ---
Demographics + + + | Address | [address] | | | [place] [address] | + + + | Home Phone [...] Providers + +------+ + | Care Rigging Up Worker Name | Role | Phone [...] 2016 | | Pain Center at | MATERIAL ENGINEER [address] | | | | | [facility] | [place], [place] | | | | | [address] | [address] | | | | | [facility] | [phone] | | | | | and Healing, | | | | | | [facility] | | | | | | [place], [place] | | | | | | [address] | | | | | | [phone] | | | +--------+ + + + [...]
--- OUTSIDE RECORDS SUMMARY | ~2020-06-02 | XMS | Encounter Summary ---
Demographics + + + | Address | [address] | | | [place] [address] | + + + | Home Phone [...] Team Providers + +------+ + | Care Loin Trimmer Name | Role | Phone | [...] | 2016 | Encounter | Center at [facility] [address] | | results | | | | [address] [facility] | | | | | | for Health and | | | | | | Healing, Building 2 | | | | | | [place], [place] | | | | | | [address] | | | | | | [phone] | | | +--------+ + + + [...]
--- OUTSIDE RECORDS SUMMARY | ~2020-06-02 | XMS | Encounter Summary ---
Demographics + + + | Address | [address] | | | [place] [address] | + + + | Home Phone [...] Providers + +------+ + | Care Trial Judge Name | Role | Phone | [...] | Pain Center at | [address] | | | | | [facility] | [address] [address] | | | | | [address] | [place], [place] | | | | | Center for Health | [address] | | | | | and Healing, | [phone] | | | | | [facility] | | | | | | Floor [place], [place] | | | | | | [address] | | | | | | [phone] | | | +--------+ + + + [...]
--- OUTSIDE RECORDS SUMMARY | ~2020-06-02 | XMS | Encounter Summary ---
Demographics + + + | Address | [address] | | | [place] [address] | + + + | Home Phone [...] Providers + +------+ + | Care Hand Cultivator Name | Role | Phone | [...] | | | | | Procedures | [place], [place] | | | | | | MR | [id number] | | | | | | ENTEROGRAPHY [...] | | | | | Procedures | [place], [place] | | | | | | MR | [id number] | | | | | | ENTEROGRAPHY [...] [facility] | [address] | | | | | [address] | [place], [place] | | | | | Giuliana Maldon[address] | [address] | | | | | [facility] | [phone] | | | | | [place], [place] | | | | | | [address] | | | | | | [phone] | | | +--------+ + + + [...]
--- OUTSIDE RECORDS SUMMARY | ~2020-06-02 | XMS | Encounter Summary ---
Demographics + + + | Address | [address] | | | [place] [address] | + + + | Home Phone [...] Closed | | Orthopedics | Diagnoses | [place], | [facility] | | | | | Adjustment | Ranjeet Odom MD | Ch[address]1 [address] | | | | | disorder, | [address] | | | | | unspecified | Ave | Center for | | | | | type | [facility] [place] | Health and | | | | | Procedures | [address] | Healing, | | | | | CONSULT TO | Phone: | Building 1, | | | | | BEHAVIORAL | [phone] | 12th Floor | | | | | HEALTH/PSYCH | Fax: | [place], [place] | | | | | CHRISTINA - | [phone] | [address] | | | | | ADULT | | Phone: | | | | | | | [phone] | | | | | | | Fax: | | | | | | | [phone] | +--------+--------+ + + + + Reason [...] | | syndrome | [address] | [place], [place] | | | | | type 1 of | Rd | [address] | | | | | left lower | [place], [place] | Phone: | | | | | extremity | [address] | [phone] | | | | | Procedures | Phone: | Fax: | | | | | CONSULT TO | [phone] | [phone] | | | | | ORTHOPEDICS | Fax: | | | | | | AND | [phone] | | | | | | REHABILITATI [...] | 2018 | Visit | Faculty at [facility] | [address] | (Primary Dx); Left | | | | for Health and | [place], [place] | ankle pain, | | | | Healing [address] | [address] | unspecified | | | | [facility] for | [phone] | chronicity; | | | | Health and Healing, | | Adjustment disorder, | | | | Building | | unspecified type | | | | Floor [place], [place] | | | | | | [address] | | | | | | [phone] | | | +--------+---------+ + + + [...] by physician. Concentration is 150mg/mL. Compounded by [employer] ([id number]) levonorgestrel (MIRENA) 20 mcg/24 hr Intrauterine IUD [...] oral recon soln Take as directed by [facility] [employer] [facility]- 2 gallon bowel prep polyethylene glycol [...] [facility] and personally formulated the plan with the [...] become. f/u open ended Ranjeet Amanda M.D. [employer] Foot and Ankle Surgery Department of Orthopedics & Rehabilitation [facility] [phone] >60 mins face to face consultation was [...]
--- OUTSIDE RECORDS SUMMARY | 2020-06-02 15:38 | XMS ---
PreManage Notification: BRODY LINCOLN Security Director Of Epidemiology Events No recent Security Events currently on file CRITERIA MET - Group Notification - 6 ED Visits in 6 Months - [facility] - Has Care Guidelines - PDMP - [facility] - 2 Visits in 30 Days CARE PROVIDERS MARCELINO PERRY Internal Medicine Current PHONE: [phone] Aron Hannah Anesthesiology: Pain Medicine 07/18/2018-Current PHONE: Unknown Guidelines Source: [facility] Guidelines Date: 08/22/2019 Care Recommendation: PATIENT HAS HISTORY COMPLEX REEGIONAL PAIN SYNDROME WELL CYCLICAL ABDOMINAL PAIN/NAUSEA/VOMITING.\T\nbsp; UNDER TREATMENT WITH ARON HANNAH MD PHD PAIN MANAGMENT [facility].\T\nbsp; FOLLOW THIS REGIMEN WHEN PRESENTING TO ED FOR RESOLUTION OF SYMPTOMS: *HYDRATION IV *HYDROMORPHONE 1MG IV * KETOROLAC 30 MG IV *PROMETHAZINE 25MG IV Additional care guidelines exist for the following facilities: [facility] ( 05/21/2019 ) Care History Medical/Surgical 03/06/2020 [facility] Patient has scheduled follow up with Dr. Quach at 11:00 am today.\T\nbsp; [address] Quach in next few weeks. 08/24/2019 [facility] - IF SEEN FOR HER CHRONIC COMPLEX REGIONAL PAIN SYNDROME/NAUSEA VOMITING IN THE EMERGENCY ROOM - TREAT WITH [facility]\T\nbsp;TREATMENT GUIDELINES IN THE ED ONLY --- DO NOT ADMIT FOR OBSERVATION OR\T\nbsp;INPATIENT - MAY NEED TO STAY FOR\T\nbsp;MULTIPLE\T\nbsp;TREATMENT ATTEMPTS - PATIENT IS NO LONGER TO BE ADMITTED\T\nbsp;FOR THIS CHRONIC CONDITION - IF SOMETHING ELSE IS FOUND ADMIT NEEDED\T\nbsp; 05/02/2018 [facility] - Patient is currently established with [facility]. If patient is seen in the ED during business hours. Please contact [facility] at [facility] at [phone]. Care Recommendation: This patient has had 5 or more Emergency Department visits in the last 12 months.\T\nbsp; Patient requires education on the scope and purpose of the ED as an acute care provider not a Primary Care Provider and should not be utilized for chronic conditions.\T\nbsp; If patient returns to ED please contact Community Health WorkerIlene at [phone]. These are guidelines and the provider should exercise clinical judgment when providing care. E.D. VISIT COUNT (12 MO.) 9 [facility] TOTAL 9 NOTE: Visits indicate total known visits. ED/UCC VISIT TRACKING (12 MO.) 06/02/2020 15:[address] [facility] [place] TYPE: Emergency COMPLAINT: - ABD PAIN, VOMITING 05/29/2020 19:40 [facility] [place] TYPE: Emergency COMPLAINT: - ABD PAIN,VOMITING DIAGNOSES: - Allergy status to narcotic agent status - Unspecified abdominal pain - Complex regional pain syndrome I of other specified site - Other long term acute care registered nurse (current) drug therapy 05/26/2020 19:15 [facility] [place] TYPE: Emergency COMPLAINT: - ABDOMINAL PAIN/VOMITING DIAGNOSES: - Allergy status to narcotic agent status - Unspecified abdominal pain - Complex regional pain syndrome I of other specified site - Other long term acute care registered nurse (current) drug therapy - Vomiting, unspecified - Unspecified abdominal pain 03/23/2020 06:39 [facility] [place] TYPE: Emergency COMPLAINT: - ABD PAIN, VOMITING 03/09/2020 13:21 [facility] [place] TYPE: Emergency COMPLAINT: - ABD PAIN, VOMITING DIAGNOSES: - Personal history of nicotine dependence - Complex regional pain syndrome I, unspecified - Allergy status to narcotic agent status - Other long term acute care registered nurse (current) drug therapy - Nausea with vomiting, unspecified 03/05/2020 10:51 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 - Allergy status to other drugs, medicaments and biological sub - Cyclical vomiting syndrome unrelated to migraine - Unspecified abdominal pain - Allergy status to narcotic agent status 08/12/2019 15:11 [facility] [place] TYPE: Emergency COMPLAINT: - ABD PAIN, NAUSEA 08/10/2019 13:43 [facility] [place] TYPE: Emergency COMPLAINT: - ABD/BACK PAIN, VOMITING DIAGNOSES: - Other chcf (current) drug therapy - Upper abdominal pain, unspecified - Allergy status to narcotic agent status - Cyclical vomiting, not intractable 08/08/2019 18:18 [facility] [place] TYPE: Emergency COMPLAINT: - SEVERE ABD AND BACK PAIN, VOMITING DIAGNOSES: - Other long term acute care registered nurse (current) drug therapy - Complex regional pain syndrome I, unspecified - Unspecified abdominal pain - Allergy status to other drugs, medicaments and biological sub - Allergy status to narcotic agent status INPATIENT VISIT TRACKING (12 MO.) 03/23/2020 15:02 [facility] [place] TYPE: Medical Surgical COMPLAINT: - BILATERAL PE DIAGNOSES: - shelter (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 - Presence of (intrauterine) contraceptive device - Right upper quadrant pain - Complex regional pain syndrome I of left lower limb - Nonspecific elevation of levels of transaminase and lactic ac - Right upper quadrant pain - Interstitial cystitis (chronic) without hematuria - Complex regional pain syndrome I of left lower limb - Other chcf (current) drug therapy - Cyclical vomiting syndrome unrelated to migraine - Major depressive disorder, single episode, unspecified - Cyclical vomiting syndrome unrelated to migraine - shelter (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 - Nonspecific elevation of levels of transaminase and lactic ac - Other pulmonary embolism without acute cor pulmonale - Allergy status to narcotic agent status - Presence of (intrauterine) contraceptive device - Other chcf (current) drug therapy - Allergy status to narcotic agent status - Major depressive disorder, single episode, unspecified - Opioid dependence, uncomplicated - Opioid dependence, uncomplicated - Interstitial cystitis (chronic) without hematuria 08/12/2019 15:12 [facility] [place] TYPE: Observation COMPLAINT: - INTACKABLE ABDOMINAL PAIN DIAGNOSES: - 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
[2020-06-02] MEDS ORDERED: WELLBUTRIN SR200 MG PO (16:10)
== END 2020-06-02 20:08 | disposition home or self-care (01) ==
LOC: ED 15:35
DX: R10.9 Unspecified abdominal pain (principal); Z88.5 Allergy status to narcotic agent; Z88.8 Allergy status to other drugs, medicaments and biological substances; Z79.899 Other long term (current) drug therapy; Z79.01 Long term (current) use of anticoagulants
CPT/HCPCS: 80053; 81001; 83690; 83735; 84703; 85025; 85610; 96361; 96374; 96375; 96376; 99284-25; J2550; J7030

== ENCOUNTER 2020-06-23 16:56 | Emergency (ER) | payer MEDICARE, OTHER ==
[~2020-06-23] VITALS: Ht 165.1 cm; Wt 95.7 kg
--- OUTSIDE RECORDS SUMMARY | ~2020-06-23 | XMS | Encounter Summary ---
Demographics + + + | Address | [address] | | | [place] [address] | + + + | Home Phone | | + + + | Preferred Language | Unknown | + + + | Marital Status | Single | + + + | Yarsani Affiliation | FMD | + + + | Race | White | + + + | Ethnic Group | Not or | + + + Author + + + | Author | [facility] | + + + | Organization | [facility] | + + + | Address | Unknown | + + + | Phone | Unavailable | + + + Support + + +---------+ + | Name | Relationship | Address | Phone | + + +---------+ + | Patricia Colin | ECON | Unknown | | + + +---------+ + Care Team Providers + +------+ + | Care Mysql Dba Name | Role | Phone | + +------+ + | Justo Vazquez MD | PCP | | + +------+ + Reason for Visit + + + | Reason | Comments | + + + | Wound infection | | + + + Encounter Details +--------+ + + + + | Date | Type | Department | Care Team | Description | +--------+ + + + + | 10/07/ | Telephone | [facility] | Yosef Kenney MD | Wound infection | | 2018 | | Pain Center at | [address] | | | | | [facility] | [facility], | | | | | [address] | [place] [address] | | | | | [facility] | [phone] | | | | | and Healing, | | | | | | [facility] | | | | | | [place], [place] | | | | | | [address] | | | | | | [phone] | | | +--------+ + + + [...]
--- OUTSIDE RECORDS SUMMARY | ~2020-06-23 | XMS | Encounter Summary ---
Demographics + + + | Address | [address] | | | [place] [address] | + + + | Home Phone | | + + + | Preferred Language | Unknown | + + + | Marital Status | Single | + + + | Buddhism Affiliation | FMD | + + + | Race | White | + + + | Ethnic Group | Not or | + + + Author + + + | Author | [facility] | + + + | Organization | [facility] | + + + | Address | Unknown | + + + | Phone | Unavailable | + + + Support + + +---------+ + | Name | Relationship | Address | Phone | + + +---------+ + | Patricia Colin | ECON | Unknown | | + + +---------+ + Care Team Providers + +------+ + | Care Workplace Rehabilitation Officer Name | Role | Phone | [...] + + | 02/21/ | Telephone | [facility] | Alex Sanchez, | Medication Refill | | 2018 | | Pain Center at | ,PhD [address] | Request (ketamine- | | | | [facility] | [address] [facility] [address] | mail script to | | | | [address] | [place], [place] | patient) | | | | [facility] | [address] | | | | | and Healing, | [phone] | | | | | | | | | | | Floor [place], [place] | | | | | | [address] | | | | | | [phone] | | | +--------+ + + + [...]
--- OUTSIDE RECORDS SUMMARY | ~2020-06-23 | XMS | Encounter Summary ---
Demographics + + + | Address | [address] | | | [place] [address] | + + + | Home Phone | | + + + | Preferred Language | Unknown | + + + | Marital Status | Single | + + + | Pentecostal Affiliation | FMD | + + + | Race | White | + + + | Ethnic Group | Not or | + + + Author + + + | Author | [facility] | + + + | Organization | [facility] | + + + | Address | Unknown | + + + | Phone | Unavailable | + + + Support + + +---------+ + | Name | Relationship | Address | Phone | + + +---------+ + | Patricia Colin | ECON | Unknown | | + + +---------+ + Care Team Providers + +------+ + | Care Warehouse Analyst Name | Role | Phone | + +------+ + | Justo Vazquez MD | PCP | | + +------+ + Encounter Details +--------+ + + + + | Date | Type | Department | Care Team | Description | +--------+ + + + + | 09/27/ | Telephone | [facility] | Ilene Bright, | | | 2017 | | Pain Center at | PRESSURE TESTER OPERATOR [address] | | | | | [facility] | [place], [place] | | | | | [address] | [address] | | | | | [place] [facility] | [phone] | | | | | and Healing, | | | | | | | | | | | | Floor [place], [place] | | | | | | [address] | | | | | | [phone] | | | +--------+ + + + [...]
--- OUTSIDE RECORDS SUMMARY | ~2020-06-23 | XMS | Encounter Summary ---
Demographics + + + | Address | [address] | | | [place] [address] | + + + | Home Phone | | + + + | Preferred Language | Unknown | + + + | Marital Status | Single | + + + | Mormonism Affiliation | FMD | + + + | Race | White | + + + | Ethnic Group | Not or | + + + Author + + + | Author | [facility] | + + + | Organization | [facility] | + + + | Address | Unknown | + + + | Phone | Unavailable | + + + Support + + +---------+ + | Name | Relationship | Address | Phone | + + +---------+ + | Patricia Colin | ECON | Unknown | | + + +---------+ + Care Team Providers + +------+ + | Care Surgical Pathologist Name | Role | Phone | + +------+ + | Justo Vazquez MD | PCP | | + +------+ + Reason for Visit + + + | Reason | Comments | + + + | Referral To | discuss ortho appointment | | Orthopedics | | + + + Encounter Details +--------+ + + + + | Date | Type | Department | Care Team | Description | +--------+ + + + + | 01/11/ | Telephone | [facility] | Alex Sanchez, | Referral To | | 2018 | | Pain Center at | ,PhD [address] | Orthopedics (discuss | | | | [facility] | [address] | ortho appointment) | | | | [address] | [place], [place] | | | | | [facility] | [address] | | | | | and Healing, | [phone] | | | | | Building | | | | | | Floor [facility] [place] | | | | | | [address] | | | | | | [phone] | | | +--------+ + + + [...]
--- OUTSIDE RECORDS SUMMARY | ~2020-06-23 | XMS | Encounter Summary ---
Demographics + + + | Address | [address] | | | [place] [address] | + + + | Home Phone [...] Author + + + | Author | [facility] | + + + | Organization | [facility] | + + + | Address | Unknown | + + + | Phone | Unavailable | + + + Support + + +---------+ + | Name | Relationship | Address | Phone | + + +---------+ + | Patricia Colin | ECON | Unknown | | + + +---------+ + Care Team Providers + +------+ + | Care Chip Silo Tender Name | Role | Phone | + +------+ + | Justo Vazquez MD | PCP | | + +------+ + Reason for Visit + + + | Reason | Comments | + + + | Refill Request | | + + + Encounter Details +--------+--------+ + + + | Date | Type | Department | Care Team | Description | +--------+--------+ + + + | 12/26/ | Refill | [facility] | Alex Sanchez, | Refill Request | | 2019 | | Pain Center at | ,PhD [address] [facility] | | | | | [facility] | [address] | | | | | [address] | [place], [place] | | | | | [facility] | [address] | | | | | and [place], | [phone] | | | | | [facility] | | | | | | Floor [place], [place] | | | | | | [address] | | | | | | [phone] | | | +--------+--------+ + + + [...] stimulator | + + documented in this encounter"
--- OUTSIDE RECORDS SUMMARY | ~2020-06-23 | XMS | Encounter Summary ---
Demographics + + + | Address | [address] | | | [place] [address] | + + + | Home Phone [...] Team Providers + +------+ + | Care General Education Professor Name | Role | Phone [...] Description | +--------+--------+ + + + | 10/30/ | Refill | [facility] | Alex Sanchez, | Refill Request | | 2018 | | Pain Center at | ,PhD [address] [facility] | | | | | [facility] | [address] | | | | | [address] | [place], [place] | | | | | [facility] | [address] | | | | | and [place], | [phone] | | | | | [facility] | | | | | | Floor [place], [place] | | | | | | [address] | | | | | | [phone] | | | +--------+--------+ + + + [...]
--- OUTSIDE RECORDS SUMMARY | ~2020-06-23 | XMS | Encounter Summary ---
Demographics + + + | Address | [address] | | | [place] [address] | + + + | Home Phone [...] Author + + + | Author | [facility] | + + + | Organization | [facility] | + + + | Address | Unknown | + + + | Phone | Unavailable | + + + Support + + +---------+ + | Name | Relationship | Address | Phone | + + +---------+ + | Patricia Colin | ECON | Unknown | | + + +---------+ + Care Team Providers + +------+ + | Care Seamer Elastic Band Name | Role | Phone | + +------+ + | Justo Vazquez MD | PCP | | + +------+ + Encounter Details +--------+ + + + + | Date | Type | Department | Care Team | Description | +--------+ + + + + | 12/15/ | Documentati | [facility] | Bruna Quinones, | | | 2017 | on | Center at [facility] [address] | [address] | | | | | [address] [place] | [facility] [place] | | | | | for Health and | [address] | | | | | Healing, [address] | [phone] | | | | | [place], [place] | | | | | | [address] | | | | | | [phone] | | | +--------+ + + + [...]
--- OUTSIDE RECORDS SUMMARY | ~2020-06-23 | XMS | Encounter Summary ---
Demographics + + + | Address | [address] | | | [place] [address] | + + + | Home Phone [...] Team Providers + +------+ + | Care Boat Detailer Name | Role | Phone | + +------+ + | Justo Vazquez MD | PCP | | + +------+ + Reason for Visit + + + | Reason | Comments | + + + | Medical Records | | | Review | | + + + Encounter Details +--------+ + + + + | Date | Type | Department | Care Team | Description | +--------+ + + + + | 01/11/ | Abstract | [facility] | Kenny Gaspar MD | Medical Records | | 2017 | | Center at [facility] [address] | | Review | | | | [facility] | | | | | | for Health and | | | | | | [facility] [address] | | | | | | [place], [place] | | | | | | [address] | | | | | | [phone] | | | +--------+ + + + [...]
--- OUTSIDE RECORDS SUMMARY | ~2020-06-23 | XMS | Encounter Summary ---
Demographics + + + | Address | [address] | | | [place] [address] | + + + | Home Phone [...] Team Providers + +------+ + | Care Platen Press Feeder Name | Role | Phone | + +------+ + | Justo Vazquez MD | PCP | | + +------+ + Reason for Visit +--------+ + | Reason | Comments | +--------+ + | Pain | | +--------+ + Encounter Details +--------+ + + + + | Date | Type | Department | Care Team | Description | +--------+ + + + + | 03/28/ | Telephone | [facility] | Kenny Gaspar MD | Pain | | 2016 | | Center [place] [address] [address] | | | | | | [address] [facility] | | | | | | for Health and | | | | | | Healing, [address] | | | | | | [place], [place] | | | | | | [address] | | | | | | [phone] | | | +--------+ + + + [...]
--- OUTSIDE RECORDS SUMMARY | ~2020-06-23 | XMS | Encounter Summary ---
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 | | | | Therapy | CRPS | Janak Martinez MD | [address] | | | | | (complex | [address] | | | | | regional | [address] | Mailcode: | | | | | pain | Mailstop | [facility] | | | | | syndrome), | [id number] | for Health | | | | | lower limb | [place], [place] | and Healing, | | | | | Gait | [address] | [address] | | | | | disturbance | Phone: | [place], [place] | | | | | Muscle pain | [phone] | [address] | | | | | Procedures | Fax: | Phone: | | | | | PHYSICAL | [phone] | [phone] | | | | | THERAPY | | | | | | | REFERRAL | | | +--------+--------+ + + + + Encounter Details +--------+---------+ + + + | Date | Type | Department | Care Team | Description | +--------+---------+ + + + | 06/05/ | Office | [facility] | Guillermo Sanon I, | CRPS (complex | | 2011 | Visit | Therapy Services at | PT [address] | regional pain | | | | [place] | [place] [address] | syndrome), lower | | | | [address] | [phone] | limb (Primary Dx) | | | | [facility] | | | | | | and Healing, | | | | | | Building [address], | | | | | | Floor [place], [place] | | | | | | [address] | | | | | | [phone] | | | +--------+---------+ + + + [...] Progress Notes Guillermo Sanon I, PT - 06/05/2012 4:07 PM PDTFormatting of this note might be different f rom the original. [id number] BRODY FARAH Date of : 1990 Start of care: 02/14/2012 Date of onset: 02/14/2012 Referring/Attending Practitioner: Janak Riojas MD . Primary/Referral Diagnosis/ICD-9: 355.71B CRPS (complex regional pain syndrome), lower limb Insurance: [facility] Plan: BCBS OUT OF STATE Product Type: PP O Service period from: 02/14/2012 to: 08/12/2012 Number visits used/authorized: 03/25 [facility] PHYSICAL THERAPY PROGRESS NOTE SUBJECTIVE: Age: 21 y.o. Sex: female Chief complaint: No chief complaint on file. Current: Pt felt Increased pain for three days after last treatment. She feels about the same overall. She has been following her home exercise program. The neck and upper body adiel ff is goni well. She is walking for exercise but she cannot always do it every day. She work ed 20 hours last week, this was hard on her foot. She wants to improve her whole body fitness and find things she can do without flaring up h er ankle. She does have a gym that she can use and she has a family friend who is a local PT . History of Presenting Problems: Brody Farah is [...] Riojas today already. Pain rating at present: 7.5 /10 Symptoms are aggravated by: waking up [...] 4", L 0" Neuro Screen UE Neuro: 06/05/2012 Segmental Shoulder Strength Right Left C8, T1 Thumb adduction (Ulnar) , Opposition (median) 5 5 T1 5 5 Lower Quarter Neurodynamics: Test Date 06/05/2012 Sit slump: Right: positive -20 degrees knee extension + cervical diff Left: positive -30 degrees knee extension + cervical diff SLR: Right: positive 40 degrees lbp + ankle diff Left: coud not test secondary to pain with contact Palpation: tender left low lumbar Baselines Activity 06/05/2012 05/24/2012 05/10/2012 05/03/2012 Walk without crutches 5- 8 minutes /4 mile 11/17 mile unilateral rows Tiw 8lbs 3x15 7.5 x 5 scaption 0# to fatigue 1# 1x15 0# to fatigue amb with body weight support treadmill 13 minutes 30%support 1.2 mph Bird dogs desensitization Rice Cotton balls Treatment provided: Low trunk rotation Oblique abdominal strengthening 10 x 10 sec (8 breaths) Bird dogs Kick your head off left lumbar gapping in right sidelying Functional mobilisation thoracic girdle and cervical spine Discussed desensitization Home exercises: Static cervical isometerics in four directions 10 x10 Segmental Lower trunk rotation Shoulder scaption 1# unilateral Low rows yellow theraband. Desensitization program starting with cotton balls Palmar grasp inhibition Walking as tolerated Bird dogs Treatment began: 1600hrs Treatment ended: 1700hrs Manual therapy: 15min Therapeutic exercise: 45 min ASSESSMENT: pt is doing well with her upper extremity exercises and has no weakness in her hands today. She continues with foot pain and limited ambulation. She has an adverse respons e to neural tension, which we started working on today. We also discussed her progress throu gh the desensitization process. Date Goals Time Frame Status 05/03/2012 Independent [...] any change in their status. [facility] Outpatient Rehabilitation Services Mailcode: [facility] [id number] [facility], [address] [place] [phone] documented in this encounter Plan of Treatment Not on filedocumented as of this encounter Procedures + +--------+ + + + | Procedure Name | Priori | Date/Time | Associated Diagnosis | Comments | | | ty | | | | + +--------+ + + + | LA MANUAL THER | Routin | 06/05/2012 | CRPS (complex | | | TECH,1+REGIONS,EA 15 | e | 5:15 PM | regional pain | | | MIN | | PDT | syndrome), lower | | | | | | limb | | + +--------+ + + + | LA THERAPEUTIC | Routin | 06/05/2012 | CRPS (complex | | | EXERCISES | e | 5:15 PM | regional pain | | | [...]
--- OUTSIDE RECORDS SUMMARY | ~2020-06-23 | XMS | Encounter Summary ---
Demographics + + + | Address | [address] | | | [place] [address] | + + + | Home Phone | | + + + | Preferred Language | Unknown | + + + | Marital Status | Single | + + + | Muslim Affiliation | FMD | + + + [...] Team Providers + +------+ + | Care Interventional Radiology Rn Name | Role | Phone | + +------+ + | Justo Vazquez MD | PCP | | + +------+ + Encounter Details +--------+ + + + + | Date | Type | Department | Care Team | Description | +--------+ + + + + | 12/12/ | Telephone | [facility] | Alex Sanchez, | | | 2019 | | Pain Center at | ,PhD [address] | | | | | [facility] | [address] | | | | | [address] | [place], [place] | | | | | [place] for [facility] | [address] | | | | | and Healing, | [phone] | | | | | | | | | | | Floor [place], [place] | | | | | | [address] | | | | | | [phone] | | | +--------+ + + + [...] extremity - Primary | + + | S/P insertion of spinal cord stimulator | + + documented in this encounter"
--- OUTSIDE RECORDS SUMMARY | ~2020-06-23 | XMS | Encounter Summary ---
Demographics + + + | Address | [address] | | | [place] [address] | + + + | Home Phone [...] Team Providers + +------+ + | Care Procedures Tech Name | Role | Phone | + +------+ + | Justo Vazquez MD | PCP | | + +------+ + Reason for Visit + + + | Reason | Comments | + + + | Other | | + + + | Abdominal pain | | + + + Encounter Details +--------+ + + + + | Date | Type | Department | Care Team | Description | +--------+ + + + + | 01/31/ | Telephone | Dig[facility]ive [facility] | Kenny Gaspar MD | Other; Abdominal | | 2017 | | Center at [facility] [address] | | pain | | | | [address] [facility] | | | | | | for Health and | | | | | | Healing, [address] | | | | | | [place], [place] | | | | | | [address] | | | | | | [phone] | | | +--------+ + + + [...]
--- OUTSIDE RECORDS SUMMARY | ~2020-06-23 | XMS | Encounter Summary ---
Demographics + + + | Address | [address] | | | [place] [address] | + + + | Home Phone | | + + + | Preferred Language | Unknown | + + + | Marital Status | Single | + + + | Confucianism Affiliation | FMD | + + + [...] Team Providers + +------+ + | Care City Clerk Name | Role | Phone | + +------+ + | Justo Vazquez MD | PCP | | + +------+ + Reason for Visit + + + | Reason | Comments | + + + | Referral | ortho denied | + + + Encounter Details +--------+ + + + + | Date | Type | Department | Care Team | Description | +--------+ + + + + | 04/25/ | Telephone | [facility] | Alex Sanchez, | Referral (ortho | | 2018 | | Pain Center at | ,PhD [address] | denied) | | | | [facility] | [facility] | | | | | [address] | [place], [place] | | | | | [facility] | [address] | | | | | and Martina, | [phone] | | | | | [facility] | | | | | | Floor [place], [place] | | | | | | [address] | | | | | | [phone] | | | +--------+ + + + [...]
--- OUTSIDE RECORDS SUMMARY | ~2020-06-23 | XMS | Encounter Summary ---
Demographics + + + | Address | [address] | | | [place] [address] | + + + | Home Phone | | + + + | Preferred Language | Unknown | + + + | Marital Status | Single | + + + | Druze Affiliation | FMD | + + + [...] Providers + +------+ + | Care Warehouse Technician Name | Role | Phone | [...] | Other | Pain | Diagnoses | Eric, | Scott May | | | | Management | Complex | [place], [place] | D, [address] | | | | | regional | [address] | | | | | pain | [address] | [place], [place] | | | | | syndrome | [place] | [address] | | | | | type 1 of | [address] | Phone: | | | | | left lower | Phone: | [phone] | | | | | extremity | [phone] | Fax: | | | | | Midline low | Fax: | [phone] | | | | | back pain | [phone] | | | | | | without | | | | | | | sciatica, | | | | | | | unspecified | | | | | | | chronicity | | | | | | | Sacroiliac | | | | | | | pain | | | | | | | Procedures | | | | | | | CONSULT TO | | | | | | | PAIN | | | | | | | MANAGEMENT | | | +--------+---------+ + + + + Reason for Visit + + + | Reason | Comments | + + + | Low back pain | | + + + | Back pain | | + + + | Neck pain | | + + + | Procedure | | + + + Consultation (Routine) +--------+---------+ + + + + | Status | Reason | Specialty | Diagnoses / | Referred By | Referred To | | | | | Procedures | Contact | Contact | +--------+---------+ + + + + | Closed | Other | Chiropractor | | St [facility], | Eric, | | | | / Pain | | TERESA Odom | Lane Torres [place] | | | | Management | | [address] | [address] | | | | | | [address] | Ave | | | | | | [place], [place] | [facility] [place] | | | | | | [address] | [address] | | | | | | Phone: | Phone: | | | | | | [phone] | [phone] | | | | | | Fax: | Fax: | | | | | | [phone] | [phone] | +--------+---------+ + + + + Encounter Details +--------+---------+ + + + | Date | Type | Department | Care Team | Description | +--------+---------+ + + + | 07/04/ | Office | [facility] Comprehensive | Lane Reyes, | Complex regional | | 2019 | Visit | Pain Center at | [place] [address] | pain syndrome type 1 | | | | [place] | [place], [place] | of left lower | | | | [address] | [address] | extremity (Primary | | | | [facility] | [phone] | Dx); Midline low | | | | and Healing, | | back pain without | | | | Building | | sciatica, | | | | Floor [place], [place] | | unspecified | | | | [address] | | chronicity; | | | | [phone] | | Sacroiliac pain; | | | | | | Sacral dysfunction; | | | | | | Somatic dysfunction | | | | | | of pelvis region; | | | | | | Somatic dysfunction | | | | | | of sacral region | +--------+---------+ + + + Social History [...] + + + | Blood Pressure | 127/71 | 07/04/2019 10:31 AM | | | | | PDT | | + + + + + | Pulse | 75 | 07/04/2019 10:31 AM | | | | | PDT | | + + + + + | Temperature | - | - | | + + + + + | Respiratory Rate | - | - | | + + + + + | Oxygen Saturation | 98% | 07/04/2019 10:31 AM | | | | | PDT | | + + + + + | Inhaled Oxygen | - | - | | | Concentration | | | | + + + + + | Weight | - | - | | + + + + + | Height | 162.6 cm (5' 4") | 07/04/2019 10:31 AM | | | | | PDT | | + + + + + | Body Mass Index | - | - | | + + + + + documented in this encounter Progress Notes Niesha Reveles DC - 07/04/2019 10:30 AM PDT Date: 07/04/2019 Tracie Farah was referred for Pain Center evaluation by - Ilene Bright FNP Reason for visit: Initial consult. Chief Complaint Patient presents with Low back pain Back pain Neck pain Procedure History of Present Illness: is a 29 y.o. female with a history of constant, dul l, achy and burning pain located in the right and bilateral neck, thoracic area and lower b ack. Her pain is made worse by standing, moving laying too long and weather. Her pain is imp roved by meditation and rest. Ms. Farah had back surgery (spinal cord stimulator) In November and her hips have been hu rting, which creates a lot of leg pain bilaterally. Sometimes she gets pain into the upper b ack and neck which will cause the right arm to go numb and weak. The right side of her body is the side she had the implant/ battery pack on so she suspects that is why her pain in her arm is on that side. She hasn't done physical therapy in 2 weeks but will be going back carmen n. Has had some headaches starting a couple months ago and never had headaches. Has Interstitial cyctisis and has surgery on it 3 months. But no other changes in color or consistency of urine or bowel movements. No saddle anesthesia or extreme weakness but overal don does feel like her left side is weaker than her right. She does feel like her sneezing ca uses some "jaring" in low back which recreates discomfort. Right sided ovarian cyst, which s he also feels when she sneezes. Ms. Farah also has been wanting nutrition advice. She has a history of cyclic vomitting syndrome, and binge eating disorder. Hasn't had a relapse for 1 year and has gained 40lbs an d 4 months. She wants some advice on regulating her nutrition and seeing where she is fallin g short. She describes her typical diet as Pretty healthy/ healthier than the average ravi faust. She reports that she eats a lot of chicken, fruit, and brussel sprouts. She indulges in t reats every once in a while but has not binged in a few months. 's treatment for this pain complaint has included: MEDICATIONS: Currently taking: - Just started taking Cymbalta and bupropion (will look up Mg for next time) NON-MEDICATION THERAPIES: - Physical therapy: yes, but sometimes feels like it doesn't help - Exercise: no - Manipulations/mobilizations: no - Traction exercise/aerobic conditioning: no - Passive (heat, ice, gentle massage): no - Aqua/water/pool therapy: no - Trigger point therapy/deep tissue massage: no - Occupational therapy: no - Acupuncture: no, but wants to try - Chiropractic: Yes but a long time ago - Orthotics: no - Prosthetics: no - TENS or other electric stimulation: no - Biofeedback/relaxation: no - Yoga: no - Hypnosis: no - Group therapies: no - Psychological counseling for pain: no INTERVENTIONS: - Denies any interventions for this pain complaint 's goals from today's appointment include: a reduction in pain, decreasing pain and help in coping with the pain. UPHOLSTERY ESTIMATOR Brief Pain Inventory: (ten= worst possible pain or complete interference) Right Now: 7 Least in 24 hours: 7 Worst in 24 hours: 8 Average: 7 % Relief (med/treat): 10 General Activity: 8 Mood: 6 Walking Ability: 6 Normal Work: 8 Relations with Others: 6 Enjoyment of Life: 6 Sexual Activity: 0 Sleep: 7 Past Medical History: Diagnosis Date Abdominal pain [...] Trial spinal cord stimulator leads 08/02/2012 [facility], Surgeon: Janak Riojas MD Cholecystectomy [...] a light load. Has been working at [employer], can' t work on [employer]. Has roommates. Allergies Allergen Reactions Morphine Anaphylaxis [...] GRAM-5.86 GRAM SOLUTION Take as directed by [facility]- 2 gallon bowel prep POLYETHYLENE GLYCOL 3350 17 GRAM/DOSE ORAL POWDER Take 17 g by mouth once daily. PROMETHAZINE 12.5 MG TABLET Take 1 tablet by mouth four times daily as needed for nausea/vo miting. SUCRALFATE 1 GRAM TABLET Take 1 g by mouth four times daily. Radiology/Diagnostic Tests: X-RAY SPINE CERV 4 VIEWS Order: [id number] Performed: 06/12/2018 11:40 Status: Final result Visible to patient: Yes (MyChart) Dx: Complex regional pain syndrome type 1... Details Reading Physician Reading Date Result Priority Varinder Harding MD 06/12/2018 Narrative EXAM: SPINE CERV 4 VIEWS HISTORY: Cervicalgia COMPARISON: None. FINDINGS: [...] significant degenerative disc disease or facet osteoarthrosis. I have personally reviewed the images and, if necessary, edited the report. I agree with e report as now presented. Final signature: Varinder Harding MD 06/12/2018 12:15 PM Preliminary: Varinder Harding MD Dictation initiated: Varinder Harding MD 06/12/2018 12:14 PM Specimen Collected: 06/12/18 12:14 Last Resulted: 06/12/18 12:15 Most Recent Labs: Not applicable ROS Ht 1.626 m (5' 4"), BP 127/71, Pulse 75, SpO2 98%, BMI 32.61 kg/(m^2). Facility age limit for growth percentiles is 18 years. Physical Exam Constitutional: She is oriented to person, place, and time and well-developed, well-nourish ed, and in no distress. No distress. HENT: Head: Normocephalic and atraumatic. Eyes: Right eye exhibits no discharge. Left eye exhibits no discharge. Pulmonary/Chest: Effort normal. Musculoskeletal: She exhibits tenderness. She exhibits no edema. Thoracic back: She exhibits tenderness. Lumbar back: She exhibits tenderness and pain. Back: Neurological: She is alert and oriented to person, place, and time. Gait normal. Reflex Scores: Tricep reflexes are 2+ on the right side and 2+ on the left side. Bicep reflexes are 2+ on the right side and 2+ on the left side. Brachioradialis reflexes are 2+ on the right side and 2+ on the left side. Patellar reflexes are 2+ on the right side and 2+ on the left side. Achilles reflexes are 2+ on the right side. Skin: Skin is warm and dry. She is not diaphoretic. Psychiatric: Her speech is normal. Mood and affect normal. Back Exam Tenderness The patient is experiencing tenderness in the cervical, thoracic, lumbar and sacroiliac. Range of Motion Extension: abnormal Flexion: abnormal Lateral bend right: abnormal Lateral bend left: abnormal Rotation right: abnormal Rotation left: abnormal Muscle Strength Right Quadriceps: 5/5 Right Hamstrings: 5/5 Tests Straight leg raise right: negative Straight leg raise left: negative Other Gait: normal Comments: Cervical muscle testing: Flexion 5/5 Extension 5/5 Right lateral flexion 5/5 Left lateral flexion 5/5 Right rotation 5/5 Left rotation 5/5 Cervical compression: negative " but feels uncomfortable" Spurling's: negative BL but feels uncomfortable Cervical distraction: negative Shoulder depression: negative BL "feels like an intense stretch (R>L) Trunk muscle testing: Flexion 5/5 with pain after testing when muscles were relaxing Extension 5/5 with pain after testing when muscles were relaxing Right lateral flexion 5/5 with pain after testing when muscles were relaxing Left lateral flexion 5/5 with pain after testing when muscles were relaxing Right rotation 5/5 with pain after testing when muscles were relaxing Left rotation 5/5 with pain after testing when muscles were relaxing Isauroann: negative BL "uncomfortabe to lift arms and feels it in the entire back" Messina's muscle discomfort under contact bilaterally SLR negative bilaterally Braggard's negative bilaterally 90/90 WNL Thigh thrust positive bilaterally Pawan's: Positive bilaterally for low back pain FAIR: positive bilaterally Federica's positive bilaterally Sacral compression:" hurts under the contact on the hip" Sacral distraction "feels like pressure in the low back" BL SIJ restrictions Cassidy Torsion: Creates back tension and tightness bilaterally on the contralateral side of back Neurologic Exam Mental Status Oriented to person, place, and time. Attention: normal. Concentration: normal. Speech: speech is normal Level of consciousness: alert Motor Exam Muscle bulk: normal Overall muscle tone: normal Right arm tone: normal Left arm tone: normal Right leg tone: normal Left leg tone: normal Strength Left strength: Did not perform lower extremity muscle testing(quadriceps, hamstring, perone al or tibialis anterior) because of CRPS of left leg Right neck flexion: 5/5 Left neck flexion: 5/5 Right neck extension: 5/5 Left neck extension: 5/5 Right deltoid: 4/5 Left deltoid: 5/5 Right biceps: 5 Left biceps: 5 Right triceps: /5 Left triceps: 5/5 Right wrist flexion: /5 Left wrist flexion: 5/5 Right wrist extension: 4/5 Left wrist extension: 5/5 Right interossei: 4/5 Left interossei: 5/5 Right iliopsoas: /5 Left iliopsoas: 4/5 Right quadriceps: 5/5 Right hamstrin/5 Right anterior tibial: 5/5 Right peroneal: 5/5 Sensory Exam Right arm light touch: normal Left arm light touch: normal (Can feel the touch "lingering" after on the lateral forearm a nd upper arm) Right leg light touch: normal Left leg light touch: Was not performed due to CRPS. Gait, Coordination, and Reflexes Gait Gait: normal Tremor Resting tremor: absent Intention tremor: absent Action tremor: absent Reflexes Right brachioradialis: 2+ Left brachioradialis: 2+ Right biceps: 2+ Left biceps: 2+ Right triceps: 2+ Left triceps: 2+ Right patellar: 2+ Left patellar: 2+ Right achilles: 2+ ROF/PQRS - After discussion of risks and benefits, written informed consent was obtained f rom patient. Segmental restrictions found during motion palpation of the spine include: BL SI, Sacrum Treatment for this pain complaint has included Chiropractic manipulative therapy and myofas cial release. Chiropractic manipulative therapy was provided to the following segments to improve segment al range of motion: bilateral SIJ with prone drop mechanism Sacral into counter-nutation Myofascial release was provided to the following structures to reduce regional myofascitis: None performed today Therapeutic Exercises: none given. I am attesting that the treatment performed by the chiropractic internet marketer, Niesha Reveles, was directly observed by myself the primary chiropractor Lane Reyes [place] Visit Diagnoses: ICD-10-CM 1. Complex regional pain syndrome type 1 of left lower extremity G90.522 CONSULT TO PAIN [facility] 2. Midline low back pain without sciatica, unspecified chronicity M54.5 CONSULT TO PAIN [facility] 3. Sacroiliac pain M53.3 CONSULT TO PAIN MANAGEMENT DE CHIROPRAC MANIP,SPINAL,1-2 REGIONS 4. Sacral dysfunction M53.3 DE CHIROPRAC MANIP,SPINAL,1-2 REGIONS 5. Somatic dysfunction of pelvis region M99.05 DE CHIROPRAC MANIP,SPINAL,1-2 REGIONS 6. Somatic dysfunction of sacral region M99.04 DE CHIROPRAC MANIP,SPINAL,1-2 REGIONS Impression: Tracie Farah is a very pleasant 29 year old female who complains today of low back , mid back and neck pain. Her pain intensified after a spinal core simulation surgery in [place] of this year. Ms. Farah was alert and cooperative throughout the history and physica l exam. Neurological Physical exam revealed a "lingering" feeling on the left lateral arm an d forearm, light touch below the left knee was not performed because of complex regional hudson n syndrome, but light touch on the upper left leg was within normal limits. Light touch in a ll other areas of the body were within normal limits. Muscle testing In the right deltoid, biceps, triceps, wrist flexors, wrist extensors, interossei and iliopsoas were 4/5 as well a s the right iliopsoas. Thoracolumbar active range of motion was decreased in all directions. Cervical orthopedic tests were unremarkable and muscle tests were 5/5 and pain free. Trunk muscle were 5/5 and recreated pain after muscle test was over in all directions. Thigh thrus t, FAIR, Federica's and Pawan's test were positive bilaterally for low back pain. Cassidy torsion created tightness and tension bilaterally on the contralateral side of contact. And sacral distraction felt like a pressure in the low back. There were no red flag bowel or bl adder symptoms or bony tenderness. Given the patient's history and exam, initial differentia l diagnosis includes but is not limited to lumbosacral Strain/sprain, facet syndrome, sacroi liac joint dysfunction with associated myofascial pain syndrome. Prognosis may be delayed by biopsychosocial factors in the patients life, as well as other comorbidities and surgeries. Contraindication to treating: Spinal cord stimulator. Goals: Reduce pain as reported by OPS Improve ADL's as reported by the brief pain inventory Recommendations/Plans: 1. responded well to today's treatment. I discussed possible post treatment res idual soreness and instructed patient to ice regularly for 10-15 minutes with minimum of one hour between icing. Ms. Farah to be treated initially 10/12 times. Treatment to focus o n re-establishing proper joint mechanics and function and reducing regional hypertonicity. 2. reports feeling "alright" after today's chiropractic manipulation. 3. to follow up 2 weeks I spent 35 minutes with the patient discussing management of care, preforming a physical ex am, and providing treatment (unless treatment was not preformed as specified above) I, Niesha Abdirizak, attest that I documented this encounter. I have reviewed and verified the above note written by Chiropractic internet marketer of our visit wit h this patient as recorded by Lane Reyes DC [facility] AT [address] Mail Code: [id number] [place] [address] documented in this e ncounter Plan of Treatment Not on filedocumented as of this encounter Procedures + +--------+ + + + | Procedure Name | Priori | Date/Time | Associated Diagnosis | Comments | | | ty | | | | + +--------+ + + + | DE CHIROPRAC | Routin | 07/10/2019 | Sacroiliac pain | | | MANIP,SPINAL,1-2 | e | 12:46 PM | Sacral dysfunction | | | REGIONS | | PDT | Somatic dysfunction | | | | | | of pelvis region | | | | | | Somatic dysfunction | | | | | | of sacral region | | + +--------+ + + + documented in this encounter Visit Diagnoses + + | Diagnosis | + + | Complex regional pain syndrome type 1 of left lower extremity - Primary | + + | Midline low back pain without sciatica, unspecified chronicity | + + | Sacroiliac pain Disorders of sacrum | + + | Sacral dysfunction Other unspecified back disorder | + + | Somatic dysfunction of pelvis region Nonallopathic lesion of pelvic region, not | | elsewhere classified | + + | Somatic dysfunction of sacral region Nonallopathic lesion of sacral region, not | | elsewhere classified | + + documented in this encounter
--- OUTSIDE RECORDS SUMMARY | ~2020-06-23 | XMS | Encounter Summary ---
Demographics + + + | Address | [address] | | | [place] [address] | + + + | Home Phone [...] Team Providers + +------+ + | Care International Affairs Vice President Name | Role | Phone | + +------+ + | Justo Vazquez MD | PCP | | + +------+ + Encounter Details +--------+ + + + + | Date | Type | Department | Care Team | Description | +--------+ + + + + | 06/12/ | Hospital | Radiology/Imaging | Alex Sanchez, | | | 2018 | Encounter | Lab at [facility] [address] | ,PhD [address] [facility] | | | | | [facility] for | [facility] | | | | | Health and [facility], | [place], [place] | | | | | [place] [address] [facility] | [address] | | | | | Floor [place], [place] | [phone] | | | | | [address] | | | | | | [phone] | | | +--------+ + + + [...]
--- OUTSIDE RECORDS SUMMARY | ~2020-06-23 | XMS | Encounter Summary ---
Demographics + + + | Address | [address] | | | [place] [address] | + + + | Home Phone | | + + + | Preferred Language | Unknown | + + + | Marital Status | Single | + + + | Sikhism Affiliation | FMD | + + + [...] Team Providers + +------+ + | Care Bag Worker Name | Role | Phone | + +------+ + | Justo Vazquez MD | PCP | | + +------+ + Encounter Details +--------+ + + + + | Date | Type | Department | Care Team | Description | +--------+ + + + + | 03/08/ | Hospital | Radiology/Imaging | Ranjeet Amanda, | | | 2018 | Encounter | Lab at [facility] [address] | | | | | [facility] for | [place], [place] | | | | | Health and Healing, | [address] | | | | | | [phone] | | | | | [place], [place] | | | | | | [address] | | | | | | [phone] | | | +--------+ + + + [...] Service Account, Radiant Res In Interface - 03/08/2018 9:42 AM [...]
--- OUTSIDE RECORDS SUMMARY | ~2020-06-23 | XMS | Encounter Summary ---
Demographics + + + | Address | [address] | | | [place] [address] | + + + | Home Phone [...] Team Providers + +------+ + | Care Level Vial Grinder Name | Role | Phone | + +------+ + | Justo Vazquez MD | PCP | | + +------+ + Reason for Visit + + + | Reason | Comments | + + + | Medication | clarify sig on Ketamine | + + + Encounter Details +--------+ + + + + | Date | Type | Department | Care Team | Description | +--------+ + + + + | 03// | Telephone | [facility] Comprehensive | Alex Sanchez, | Medication (clarify | | 2018 | | Pain Center at | ,PhD [address] | sig on Ketamine) | | | | [facility] [place] 2[facility] | [facility] | | | | | [address] | [place], [place] | | | | | [facility] | [address] | | | | | and Healing, | [phone] | | | | | Building | | | | | | Floor [place], [place] | | | | | | [address] | | | | | | [phone] | | | +--------+ + + + [...]
--- OUTSIDE RECORDS SUMMARY | ~2020-06-23 | XMS | Encounter Summary ---
Demographics + + + | Address | [address] | | | [place] [address] | + + + | Home Phone [...] Team Providers + +------+ + | Care Dry Cleaning Machine Operator Helper Name | Role | Phone | + +------+ + | Justo Vazquez MD | PCP | | + +------+ + Reason for Visit + + + | Reason | Comments | + + + | Letter Encounter | plan of care | + + + Encounter Details +--------+ + + + + | Date | Type | Department | Care Team | Description | +--------+ + + + + | 05/01/ | Telephone | [facility] | Alex Sanchez, | Letter Encounter | | 2018 | | Pain Center at | ,PhD [address] | (plan of care) | | | | [facility] | [address] | | | | | [address] | [place], [place] | | | | | [facility] | [address] | | | | | and Healing, | [phone] | | | | | | | | | | | Floor [place], [place] | | | | | | [address] | | | | | | [phone] | | | +--------+ + + + [...]
--- OUTSIDE RECORDS SUMMARY | ~2020-06-23 | XMS | Encounter Summary ---
Demographics + + + | Address | [address] | | | [place] [address] | + + + | Home Phone | | + + + | Preferred Language | Unknown | + + + | Marital Status | Single | + + + | Yazidi Affiliation | FMD | + + + [...] Team Providers + +------+ + | Care Physical Education Department Chair Name | Role | Phone [...] + | 08/25/ | Telephone | [facility] | Ilene Bright, | Procedure | | 2016 | | Pain Center at | CRAFT ARTIST [address] | | | | | [facility] | [place], [place] | | | | | [address] | [address] | | | | | [facility] | [phone] | | | | | and Healing, | | | | | | [facility] | | | | | | [place], [place] | | | | | | [address] | | | | | | [phone] | | | +--------+ + + + [...]
--- OUTSIDE RECORDS SUMMARY | ~2020-06-23 | XMS | Encounter Summary ---
Demographics + + + | Address | [address] | | | [place] [address] | + + + | Home Phone [...] Team Providers + +------+ + | Care Corporate Real Estate Manager Name | Role | Phone | [...] | +--------+ + + + + | 12/09/ | Abstract | [facility] | Ava Carbajal | Medical Records | | 2017 | | [place] [facility] [address] | MD Melissa | Review | | | | [address] [facility] | | | | | | for Health and | | | | | | [facility] [address] | | | | | | [place], [place] | | | | | | [address] | | | | | | [phone] | | | +--------+ + + + [...]
--- OUTSIDE RECORDS SUMMARY | ~2020-06-23 | XMS | Encounter Summary ---
Demographics + + + | Address | [address] | | | [place] [address] | + + + | Home Phone [...] Team Providers + +------+ + | Care Agriculture Mechanic Name | Role | Phone | + +------+ + | Justo Vazquez MD | PCP | | + +------+ + Encounter Details +--------+ + + + + | Date | Type | Department | Care Team | Description | +--------+ + + + + | 12/07/ | Golf Club Head Inspector | [facility] | Ava Carbajal | | | 2016 | | [facility] Katy Torres MD | | | | | [address] [facility] for | | | | | | Health and Healing, | | | | | | Building [address] | | | | | | [place], [place] | | | | | | [address] | | | | | | [phone] | | | +--------+ + + + [...]
--- OUTSIDE RECORDS SUMMARY | ~2020-06-23 | XMS | Encounter Summary ---
Demographics + + + | Address | [address] | | | [place] [address] | + + + | Home Phone [...] Team Providers + +------+ + | Care Meter And Service Line Inspector Name | Role | Phone | [...] | | 2017 | | Center at [facility] [address] | | Review | | | | [facility] | | | | | | for Health and | | | | | | [facility], [facility] 2 | | | | | | [place], [place] | | | | | | [address] | | | | | | [phone] | | | +--------+ + + + [...]
--- OUTSIDE RECORDS SUMMARY | ~2020-06-23 | XMS | Encounter Summary ---
Demographics + + + | Address | [address] | | | [place] [address] | + + + | Home Phone [...] Team Providers + +------+ + | Care Pleater Name | Role | Phone | + [...] | Diagnoses | Beulah | Edu Pt Speaking Unit Assembler | | | | Therapy | CRPS | Janak Martinez MD | [address] [address] | | | | | (complex | [address] | | | | | regional | [address] | Mailcode: | | | | | pain | Mailstop | [facility] | | | | | syndrome), | [id number] | for Health | | | | | lower limb | [place], [place] | and Healing, | | | | | Gait | [address] | [address] | | | | | disturbance | Phone: | [place], [place] | | | | | Muscle pain | [phone] | [address] | | | | | Procedures | Fax: | Phone: | | | | | PHYSICAL | [phone] | [phone] | | | | | THERAPY | [...] | | | | [place] | [place] [address] | syndrome), lower | | | | [address] | [phone] | limb (Primary Dx) | | | | [facility] | | | | | | and Healing, | | | | | | Building [address], | | | | | | Floor [place], [place] | | | | | | [address] | | | | | | [phone] | | | +--------+---------+ + + + [...] might be different f rom the original. [id number] BRODY FARAH Date of : 1990 Start of care: 02/14/2012 Date of onset: 02/14/2012 Referring/Attending Practitioner: Janak Riojas MD . Primary/Referral Diagnosis/ICD-9: 355.71B CRPS (complex regional pain syndrome), lower limb Insurance: Payor: [facility] [employer] [facility] Plan: BCBS OUT OF STATE Product Type: PP O Service period from: 02/14/2012 to: 08/12/2012 Number visits used/authorized: 11/25 [facility] PHYSICAL THERAPY INITIAL EVALUATION SUBJECTIVE: Age: [...] no pain relief. Admitted to the inpatient [facility] program for 1 month in [...] Diagnostic evaluation: Records from CRPS program at [facility]. Suggest three phase bone sca n. 2. [...] employed by the psychologists here at the [facility]. 2.2 Physical therapy can reduce pain and improve functional status. Suggest Guillermo Sanon. 3. Medication suggestions: 3.1 Continue titrating up duloxetine. 3.2 As for any patient being managed with chronic opioids, we do recommend that the patient have a signed [facility] Material Risk Notice, agree to whatever refill [...] and hemr oidectomy. Social History: lives in [facility], 22 years old, not working currently, [...] or concerns about therapy: she lives in [facility]. She is r equesting family members [...] provided with a token and bocanegra for [facility] site. Treatment began: 1345hrs Treatment ended: 1430hrs Manual therapy: 0min Therapeutic exercise: 15 min ASSESSMENT: pt presents with 10-year history of ankle pain post trauma and multiple surgeri es. She thinks she developed CRPS in 2004. She was diagnosed with CRPS and spent a month in the program at [facility] working through aggressive desensitization and activation which prov ided no lasting benefit. She lives in [facility], is going to school, and ambulates [...] She can work with her PT in [facility]. CLINICAL PRIORITIES: 1-follow up with Dr Riojas [...] change in their status. Guillermo Sanon MSPT [facility] Outpatient Rehabilitation Services Mailcode: [facility] [address] [facility] [address] [facility] [address] documented in this encounter Plan of Treatment Not on filedocumented as of this encounter Procedures + +--------+ + + + | Procedure Name | Priori | Date/Time | Associated Diagnosis | Comments | | | ty | | | | + +--------+ + + + | LA THERAPEUTIC | Routin | 02/16/2012 | CRPS (complex | | | EXERCISES | e | 3:34 PM | regional pain | | | | | PDT | syndrome), lower | | | | | | limb | | + +--------+ + + + | LA PHYS THERAPY | Routin | 02/16/2012 | [...]
--- OUTSIDE RECORDS SUMMARY | ~2020-06-23 | XMS | Encounter Summary ---
Demographics + + + | Address | [address] | | | [place] [address] | + + + | Home Phone [...] Phone | + + +---------+ + | Patrciia Colin | ECON | Unknown | | + + +---------+ + Care Team Providers + +------+ + | Care Inside Horticultural Specialty Grower Name | Role | Phone | + +------+ + | Allegra Chaudhary | PCP | | + +------+ + Encounter Details +--------+ + + + + | Date | Type | Department | Care Team | Description | +--------+ + + + + | 01/16/ | Document-Sc | UNKNOWN DEPARTMENT | Unknown . | | | 2013 | anned | [address] | | | | | | [address] | | | | | | [place], [place] | | | | | | [address] | | | +--------+ + + + [...] + + + | RADIOLOGY | | 01/16/2014 | | Results for this | | | | 12:00 AM | | procedure are in the | | | | PST | | results section. | + +--------+ + + + documented in this encounter Results RADIOLOGY (01/16/2014 12:00 AM PST) + + + | Narrative | Performed At | + + + | | | + + + documented in this encounter Visit Diagnoses Not on filedocumented in this encounter"
--- OUTSIDE RECORDS SUMMARY | ~2020-06-23 | XMS | Encounter Summary ---
Demographics + + + | Address | [address] | | | [place] [address] | + + + | Home Phone [...] Team Providers + +------+ + | Care Chain Maker Hand Name | Role | Phone | [...] | | Pain Medicine | Diagnoses | Chasity | Realty Specialist [facility] | | | | / Pain | Abdominal | MD Kenny | [address] | | | | Management | pain, | [address] | [facility] | | | | | unspecified | [facility] | for Health | | | | | location | Rd | and Healing, | | | | | Procedures | [place], [place] | Building | | | | | CONSULT TO | [address] | 1,15th Floor | | | | | PAIN | | [place], [place] | | | | | MANAGEMENT | | [address] | | | | | | | Phone: | | | | | | | [phone] | | | | | | | Fax: | | | | | | | [phone] | +--------+--------+ + + + + Encounter Details +--------+---------+ + + + | Date | Type | Department | Care Team | Description | +--------+---------+ + + + | 07/11/ | Office | [facility] Comprehensive | Ilene Bright, | Pain of upper | | 2017 | Visit | Pain Center at | HANDLING TECH [address] | abdomen (Primary | | | | [place] | [place], [place] | Dx); Intractable | | | | [address] | [address] | cyclical vomiting | | | | [facility] | [phone] | with nausea; | | | | and Healing, | | Irritable bowel | | | | Building | | syndrome with | | | | Floor [place], [place] | | constipation; | | | | [address] | | Complex regional | | | | [phone] | | pain syndrome type 1 | | | | | | of left lower | | | | | | extremity | +--------+---------+ + + + Social History [...] + + + | Blood Pressure | 118/72 | 07/11/2017 1:27 PM | | | | | PDT | | + + + + + | Pulse | 91 | 07/11/2017 1:27 PM | | | | | PDT | | + + + + + | Temperature | - | - | | + + + + + | Respiratory Rate | 15 | 07/11/2017 1:27 PM | | | | | PDT | | + + + + + | Oxygen Saturation | 98% | 07/11/2017 1:27 PM | | | | | PDT | | + + + + + | Inhaled Oxygen | - | - | | | Concentration | | | | + + + + + | Weight | 70.3 kg (155 lb) | 07/11/2017 1:27 PM | | | | | PDT | | + + + + + | Height | 162.6 cm (5' 4") | 07/11/2017 1:27 PM | | | | | PDT | | + + + + + | Body Mass Index | 26.61 | 07/11/2017 1:27 PM | | | | | PDT | | + + + + + documented in this encounter Patient Instructions Patient Instructions Shantel Salinas - 07/11/2017 1:35 PM PDTKelly, It was good to see you today. Continue increasing your Lyrica. Let's try an elimination diet. I am providing you with materials. Try this for 30-45 days. Let's follow up after this and determine next steps. Ilene Childs DNP, HANDLING TECH-C Adult Pain Service /[facility] [address] [place] [address] documented in this encounter Progress Notes Ilene Bright FNP - 07/11/2017 1:35 PM PDTFormatting of this note might be different fr om the original. [facility] Return Visit Date: 07/11/2017 Chief Complaint Patient presents with Abdominal pain Back pain History of Present Illness: Tracie Farah is a 27 year old female, whose last appoi ntment at the [facility] was April 25, 2017, for a clinic visit. At that time our plans were: Recommendation/Plan: #1 Continue Flexeril #2 Try Pregabalin (Will send note to Justo Vazquez MD) #[address] Santacruz (pain psychology) #4 Follow up with me after Dr. Santacruz #5 May consider injection into scar in the future #6 Resources: The Fibro Manual, by Freddie Guadalupe MD [email or web address] Today, she complains of 5/10 pain located in her abdomen, back and left foot and ankle. Her pain is made worse by walking. He pain is improved by staying off her feet. This condition has remained unchanged since Ms. Farah's last visit. She does not have new pain complain ts on this visit. Ms. Farah reports that there have been no changes in her history since the last appointment. Since our last appointment Tracie has continued to have flares and has been hospitalized due to her level of pain, severe nausea and vomiting. She is feeling weak overall and mentions having a lack of energy. "Feels like [she] is full of sand", and like h er body is very heavy. She mentions that her flares are lasting longer. She describes these episodes as her stomach cramping and "expelling and turning inside out". This cramping can l eave her breathless her lungs feel like they are "being squeezed". Her back muscle also "kno t up" during these flares and become very painful. She continues to have bile with emesis. S he notes this is a bright green or in yellow color and weber in her throat and mouth. At arcadio es he feels so weak and fatigues she will not make herself food even though she doesn't have nausea and knows she should eat something. Her mother is in the process of [facility]. She has also changed her work schedule so that she may be available to help Tracie some days of the weeks should she need it. Tracie feels her pain is "ruining [her] lif e and [her] parents life" she is tearful talking about this. She mentions that her pain continues to be associated with constipation. When she is not fl aring she is able to have regular non-painful bowel movements. When she is not flaring she c ontinues to take the MiraLax. With constipation she gets UTI like symptoms. She has tried A ZO for this without relief and she reports that all her urine analysis have been negative fo r infection. She has not has food allergy testing done in the past. She has not noticed any food trigger s, other than one incident of flaring after 2 bites of [employer] pizza. She has not trie d an elimination diet. She reports no know family history of Celiac. Today her mother endors es a remote history of similar, although milder, symptoms of abdominal pain. 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 She mentions this was not diagnosed until she was in her earlier 30s at which time she underwent surgery for this. She also recalls this problem not being identified on the colonoscopy she had in her mid 20s. She has been taking Cyclobenzaprine for sleep, although she has not noticed a significant i mprovement in her pain. She is currently taking Lyrica, although she has not noticed a signi ficant improvement in her pain at her current dose. She mentions that her primary care sunni gibson is planning to increasing her dose. She has tried Ketamine nasal spray and found this wa s most helpful for improving the CRPS pain. She mentions Ketamine did not improve her abdomi nal pain, although this does not cause nausea like narcotics. She endorses trying bisphospho allison in the past and reports this improved her CRPS pain, although not her abdominal pain an d associated symptoms. [facility] QUESTIONNAIRE BRIEF PAIN 07/11/2017 Please rate how much pain you have right now: 6 Please rate your pain at its least in the last 24 hours: 4 Please rate your pain at its worst in the last 24 hours: 9 Please rate your pain at its average: 6 In the last 24 hours, how much pain relief have pain treatments or medications provided? 80 % Please indicate how much in the past 24 hours that your pain has interfered with your gener al activity: 7 Please indicate how much in the past 24 hours that your pain has interfered with your mood: 6 Please indicate how much in the past 24 hours that your pain has interfered with your walki ng ability: 3 Please indicate how much in the past 24 hours that your pain has interfered with your rodrigo l work: 3 Please indicate how much in the past 24 hours that your pain has interfered with your relat ions with other people: 6 Please indicate how much in the past 24 hours that your pain has interfered with your enjoy ment of life: 7 Please indicate how much in the past 24 hours that your pain has interfered with your sexua l activity: 0 - Does Not Interfere Please indicate how much in the past 24 hours that your pain has interfered with your sleep : 5 SALES AGENT TRADING STAMPS Questionnaire Follow-up Patient 07/11/2017 Please describe the location(s) of your pain: Stomach, upper back What was your average pain rating for today? 5 What makes your pain better? Tordal IV or IM What makes your pain worse? there's no certain thing that particularly makes it worse Has your pain changed since your last visit? No Change Do your medications cause any side effects? No Have you had any physical therapy appointments since your last visit? No Have you had any psychology appointments since your last visit? No Have you had any diagnostic studies since your last visit? No Do you require any medication refills today? No MUSCULOSKELETAL: muscle loss GASTROINTESTINAL: difficulty swallowing, nausea, constipation, abdominal pain GENITOURINARY: urinary hesitancy NERVOUS SYSTEM: none of the above PSYCHIATRIC HISTORY: sleep disturbance, decreased energy Please rate how much pain you have right now: 6 Please rate your pain at its least in the last 24 hours: 4 Please rate your pain at its worst in the last 24 hours: 9 Please rate your pain at its average: 6 In the last 24 hours, how much pain relief have pain treatments or medications provided? 80 % Please indicate how much in the past 24 hours that your pain has interfered with your gener al activity: 7 Please indicate how much in the past 24 hours that your pain has interfered with your mood: 6 Please indicate how much in the past 24 hours that your pain has interfered with your walki ng ability: 3 Please indicate how much in the past 24 hours that your pain has interfered with your rodrigo l work: 3 Please indicate how much in the past 24 hours that your pain has interfered with your relat ions with other people: 6 Please indicate how much in the past 24 hours that your pain has interfered with your enjoy ment of life: 7 Please indicate how much in the past 24 hours that your pain has interfered with your sexua l activity: 0 - Does Not Interfere Please indicate how much in the past 24 hours that your pain has interfered with your sleep : 5 Past Medical History: Diagnosis Date Abdominal pain [...] History Social History Narrative Single. Goes to [employer] with a light load. Has been working at [employer], can' t work on [employer]. Has roommates. Allergies Allergen Reactions Morphine Anaphylaxis [...] by physician. Concentration is 150mg/mL. Compounded by [facility] ) LAMOTRIGINE 200 MG TABLET Take [...] mouth two times daily. ONDANSETRON 4 MG TABLET DISSOLVED ON THE TONGUE Dissolve 1 tablet in mouth every twelve yang rs as needed. PANTOPRAZOLE 40 MG TABLET,DELAYED RELEASE Take 40 mg by mouth once daily. PEG 3350-ELECTROLYTES 236 GRAM-22.74 GRAM-6.74 GRAM-5.86 GRAM SOLUTION Take as directed by [facility]- 2 gallon bowel prep POLYETHYLENE GLYCOL 3350 17 GRAM/DOSE ORAL POWDER Take 17 g by mouth once daily. PROMETHAZINE 12.5 MG TABLET Take 12.5 mg by mouth four times daily as needed for nausea/vom iting. SUCRALFATE 1 GRAM TABLET Take 1 g by mouth four times daily. ROS: MUSCULOSKELETAL: muscle loss GASTROINTESTINAL: difficulty swallowing, nausea, constipation, abdominal pain GENITOURINARY: urinary hesitancy NERVOUS SYSTEM: none of the above PSYCHIATRIC HISTORY: sleep disturbance, decreased energy Physical Examination: BP 118/72 | Pulse 91 | RR 15 | Ht 1.626 m (5' 4") | Wt 70.3 kg (155 lb) | SpO2 98% | BMI 26 .61 kg/(m^2) Physical Exam Constitutional: No distress. HENT: [...] She is not diaphoretic. No erythema. Psychiatric: Affect normal. Vitals reviewed. Patient Active Problem List Diagnosis CRPS (complex regional pain syndrome), lower limb Gait disturbance Muscle pain Adjustment reaction Pain in joint, lower leg Disturbance in sleep behavior Pain of upper abdomen 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 Irritable bowel syndrome with constipation Intractable cyclical vomiting with nausea Abdominal pain Visit Diagnoses: R10.10 Pain of upper abdomen G43.A1 Intractable cyclical vomiting with nausea K58.1 Irritable bowel syndrome with constipation G90.522 Complex regional pain syndrome type 1 of left lower extremity For today's evaluation, I have included my personal review of Ms. Farah's history and ph ysical examination. I also used the following components in my medical decision making: Laboratory studies reviewed. Radiology Reports reviewed. Review and summary of old medical records (source: [facility]), as summarized in the body of the note. Discussion of case with another healthcare provider GI MD covering Dr. Les Gaspar. Impression: Tracie Farah is a 26 y.o. Female with a history of depression, complex regional pa in syndrome (left lower extremity) and chronic abdominal pain and vomiting. She has had a ve ry thorough work up done by GI, which has all been more or less negative. Recently, her kyle ts of pain and vomiting have increased in frequency and she thinks these flare may be trigge red by gluten. She inquires today about food allergies and possible testing, which I am less familiar with, however I will connect with Dr. Gaspar. As she has not tried any dietary changes in the past for her pain I recommend that she cons ider an elimination diet trial. I consulted in clinc with Dr. Lane Reyes (our chiropracto r with an expertise in nutrition) today who suggested she start keeping a food journal and o ffered an elimination diet guidelines. I have provided Tracie with print outs for both of the se today. She is amenable to trying this. We agreed that I would first connect with GI befor e trying this diet. If the food allergy proves to be negative, we discussed followup with Dr. Alex Sanchez, o ur CRPS specialist to discuss whether her abdominal pain is conneced to her history CRPS of the left lower extremity. Both Tracie and her mother are focused on determining the etiology of her pain, and I concur . In the meantime, since she has not noticed any bothersome side effects, I recommend she co ntinue the Lyrica and increase as tolerated. This may be done with the following titration s chedule Lyrica 75 mg Start with 1 capsule in the evening. In 2-3 days, increase to 2 capsules every 12 hours. In 2-3 days, increase to 3 capsules every 12 hours. In 2-3 days, increase to 4 capsules every 12 hours. She may take longer in between increases if she needs more time to adjust. Recommendation/Plan: - Continue increasing Lyrica as outlined above - Start elimination diet and food journal - Follow up after allergy testing 07/11/2017: I, Shantel Salinas, am functioning as a director medical writing for TERESA Clark DNP-C I have reviewed and verified the above scribed note of my visit with this patient as record ed by Shantel Salinas. Ilene Childs DNP, TERESA-C Adult Pain Service /[facility] [address] [place] [address] Addendum: I paged Dr. Les Gaspar. He was out of the clinic, I spoke with the covering provider and sha dandre Tracie's request for food allergy testing. Since Tracie thinks her pain and vomiting may b e triggered by gluten, covering provided ordered appropriate workup, which I communicated to Tracie and the the lab in [place], [place]. She will followup with me and GI once these results are available. Ilene Childs DNP, HANDLING TECH-C Adult Pain Service /[facility] [address] [place] [address] documented in this e ncounter Plan of Treatment Not on filedocumented as of this encounter Visit Diagnoses + + | Diagnosis | + + | Pain of upper abdomen - Primary Abdominal pain, other specified site | + + | Intractable cyclical vomiting with nausea | + + | Irritable bowel syndrome with constipation Irritable bowel syndrome | + + | Complex regional pain syndrome type 1 of left lower extremity | + + documented in this encounter
--- OUTSIDE RECORDS SUMMARY | ~2020-06-23 | XMS | Encounter Summary ---
Demographics + + + | Address | [address] | | | [place] [address] | + + + | Home Phone [...] Team Providers + +------+ + | Care Medical Administrator Name | Role | Phone | + +------+ + | Allegra Gandhi | PCP | | + +------+ + Encounter Details +--------+ + + + + | Date | Type | Department | Care Team | Description | +--------+ + + + + | 03/01/ | Results | [facility] | Janak Riojas, | | | 2011 | Only | Pain Center at | MD [address] [facility] | | | | | [facility] | [facility] [id number] | | | | | [address] | [place], [place] | | | | | Center for Health | [address] | | | | | and Martina, | [phone] | | | | | | | | | | | Floor [place], [place] | | | | | | [address] | | | | | | [phone] | | | +--------+ + + + [...]
--- OUTSIDE RECORDS SUMMARY | ~2020-06-23 | XMS | Encounter Summary ---
Demographics + + + | Address | [address] | | | [place] [address] | + + + | Home Phone | | + + + | Preferred Language | Unknown | + + + | Marital Status | Single | + + + | Bahai Affiliation | FMD | + + + | Race | White | + + + | Ethnic Group | Not or | + + + Author + + + | Author | [facility] | + + + | Organization | [facility] | + + + | Address | Unknown | + + + | Phone | Unavailable | + + + Support + + +---------+ + | Name | Relationship | Address | Phone | + + +---------+ + | Patricia Colin | ECON | Unknown | | + + +---------+ + Care Team Providers + +------+ + | Care Spice Grinder Name | Role | Phone | + +------+ + | Justo Vazquez MD | PCP | | + +------+ + Encounter Details +--------+ + + + + | Date | Type | Department | Care Team | Description | +--------+ + + + + | 03/18/ | Telephone | [facility] | Kenny Gaspar MD | | | 2017 | | [place] [address] [address] | | | | | | [address] [facility] | | | | | | for Health and | | | | | | [facility], [address] | | | | | | [place], [place] | | | | | | [address] | | | | | | [phone] | | | +--------+ + + + [...]
--- OUTSIDE RECORDS SUMMARY | ~2020-06-23 | XMS | Encounter Summary ---
Demographics + + + | Address | [address] | | | [place] [address] | + + + | Home Phone [...] Team Providers + +------+ + | Care Ski Lift Attendant Name | Role | Phone | + +------+ + | Justo aVzquez MD | PCP | | + +------+ + Encounter Details +--------+ + + + + | Date | Type | Department | Care Team | Description | +--------+ + + + + | 07/30/ | Telephone | [facility] | Alex Sanchez, | | | 2019 | | Pain Center at | ,PhD [address] | | | | | [facility] | [address] | | | | | [address] | [place], [place] | | | | | [place] for [facility] | [address] | | | | | and Healing, | [phone] | | | | | | | | | | | Floor [place], [place] | | | | | | [address] | | | | | | [phone] | | | +--------+ + + + [...]
--- OUTSIDE RECORDS SUMMARY | ~2020-06-23 | XMS | Encounter Summary ---
Demographics + + + | Address | [address] | | | [place] [address] | + + + | Home Phone [...] Team Providers + +------+ + | Care Tower Hand Name | Role | Phone | [...] + + | 09/15/ | Telephone | [facility] | Alex Sanchez, | Question | | 2018 | | Pain Center at | ,PhD [address] | | | | | [facility] | [address] | | | | | [address] | [place], [place] | | | | | [facility] | [address] | | | | | and [place], | [phone] | | | | | Building | | | | | | Floor [place], [place] | | | | | | [address] | | | | | | [phone] | | | +--------+ + + + [...]
--- OUTSIDE RECORDS SUMMARY | ~2020-06-23 | XMS | Encounter Summary ---
Demographics + + + | Address | [address] | | | [place] [address] | + + + | Home Phone | | + + + | Preferred Language | Unknown | + + + | Marital Status | Single | + + + | Baptism Affiliation | FMD | + + + [...] Team Providers + +------+ + | Care Furniture Associate Name | Role | Phone | + +------+ + | Justo Vazquez MD | PCP | | + +------+ + Encounter Details +--------+ + + + + | Date | Type | Department | Care Team | Description | +--------+ + + + + | 01/06/ | Document-Nd | [facility] | Alex Sanchez, | | | 2018 | annemily | Pain Center at | ,PhD [address] | | | | | [facility] | [facility] | | | | | [address] | [place], [place] | | | | | [place] for [facility] | [address] | | | | | and Healing, | [phone] | | | | | | | | | | | Floor [place], [place] | | | | | | [address] | | | | | | [phone] | | | +--------+ + + + [...]
--- OUTSIDE RECORDS SUMMARY | ~2020-06-23 | XMS | Encounter Summary ---
Demographics + + + | Address | [address] | | | [place] [address] | + + + | Home Phone [...] + + + | Author | [facility] | + + + | Organization | [facility] | + + + | Address | Unknown | + + + | Phone | Unavailable | + + + Support + + +---------+ + | Name | Relationship | Address | Phone | + + +---------+ + | Patricia Colin | ECON | Unknown | | + + +---------+ + Care Team Providers + +------+ + | Care Traveling Crane Operator Name | Role | Phone | [...] + + | 02/21/ | Telephone | [facility] | Alex Sanchez, | Medication Refill | | 2018 | | Pain Center at | ,PhD [address] | Request (ketamine- | | | | [facility] | [address] | mail script to | | | | [address] | [place], [place] | patient) | | | | [facility] | [address] | | | | | and Healing, | [phone] | | | | | | | | | | | Floor [place], [place] | | | | | | [address] | | | | | | [phone] | | | +--------+ + + + [...]
--- OUTSIDE RECORDS SUMMARY | ~2020-06-23 | XMS | Encounter Summary ---
Demographics + + + | Address | [address] | | | [place] [address] | + + + | Home Phone [...] Team Providers + +------+ + | Care Harness Tier Name | Role | Phone | + [...] | 2016 | Encounter | Center at [facility] [address] | | results | | | | [facility] | | | | | | for Health and | | | | | | Healing, [address] | | | | | | [place], [place] | | | | | | [address] | | | | | | [phone] | | | +--------+ + + + [...]
--- OUTSIDE RECORDS SUMMARY | ~2020-06-23 | XMS | Encounter Summary ---
Demographics + + + | Address | [address] | | | [place] [address] | + + + | Home Phone [...] Team Providers + +------+ + | Care Cloth Bleaching Range Operator Chief Name | Role | Phone | + +------+ + | Justo Vazquez MD | PCP | | + +------+ + Encounter Details +--------+ + + + + | Date | Type | Department | Care Team | Description | +--------+ + + + + | 12/28/ | Telephone | [facility] | Ilene Bright, | | | 2019 | | Pain Center at | SUPERVISOR DRAPERY HANGING [address] | | | | | [facility] | [place], [place] | | | | | [address] | [address] | | | | | [place] for [facility] | [phone] | | | | | and Healing, | | | | | | | | | | | | Floor [place], [place] | | | | | | [address] | | | | | | [phone] | | | +--------+ + + + [...]
--- OUTSIDE RECORDS SUMMARY | ~2020-06-23 | XMS | Encounter Summary ---
Demographics + + + | Address | [address] | | | [place] [address] | + + + | Home Phone [...] Team Providers + +------+ + | Care Pneumatic Tube Repairer Name | Role | Phone | + +------+ + | Justo Vazquez MD | PCP | | + +------+ + Encounter Details +--------+ + + + + | Date | Type | Department | Care Team | Description | +--------+ + + + + | 12/07/ | Metal Weigher | [facility] | Ava Carbajal | | | 2016 | | [place] [address] MD | | | | | [address] [facility] for | | | | | | Health and Healing, | | | | | | [address] | | | | | | [place], [place] | | | | | | [address] | | | | | | [phone] | | | +--------+ + + + [...]
--- OUTSIDE RECORDS SUMMARY | ~2020-06-23 | XMS | Encounter Summary ---
Demographics + + + | Address | [address] | | | [place] [address] | + + + | Home Phone [...] Team Providers + +------+ + | Care Table And Desk Finisher Name | Role | Phone | + [...] Shane | | | | | [facility] | [facility], | | | | | [address] | [place] [address] | | | | | [facility] | [phone] | | | | | and Healing, | | | | | | Building | | | | | | [place], [place] | | | | | | [address] | | | | | | [phone] | | | +--------+ + + + [...]
--- OUTSIDE RECORDS SUMMARY | ~2020-06-23 | XMS | Encounter Summary ---
Demographics + + + | Address | [address] | | | [place] [address] | + + + | Home Phone [...] Team Providers + +------+ + | Care Document Management Analyst Name | Role | Phone | + +------+ + | Allegra Gandhi | PCP | | + +------+ + Reason for Visit + + + | Reason | Comments | + + + | Foot pain | | + + + Physical Therapy (Routine) +--------+--------+ + + + + | Status | Reason | Specialty | Diagnoses / | Referred By | Referred To | | | | | Procedures | Contact | Contact | +--------+--------+ + + + + | Closed | | Physical | Diagnoses | [facility] | Edu Pt Advisor To [employer] | | | | Therapy | CRPS | Janak Martinez MD | [address] | | | | | (complex | [address] | | | | | regional | [address] | Mailcode: | | | | | pain | Mailstop | [facility] | | | | | syndrome), | [id number] | for Health | | | | | lower limb | [place] | and Healing, | | | | | Gait | [address] | [address] | | | | | disturbance | Phone: | [place], [place] | | | | | Muscle pain | [phone] | [address] | | | | | Procedures | Fax: | Phone: | | | | | PHYSICAL | [phone] | [phone] | | | | | THERAPY | | | | | | | REFERRAL | | | +--------+--------+ + + + + Encounter Details +--------+---------+ + + + | Date | Type | Department | Care Team | Description | +--------+---------+ + + + | 06/09/ | Office | [facility] | Guillermo Sanon I, | CRPS (complex | | 2011 | Visit | Therapy Services at | PT [address] | regional pain | | | | [facility] | [place] [address] | syndrome), lower | | | | [address] | [phone] | limb (Primary Dx) | | | | Center for [facility] | | | | | | and Healing, | | | | | | Building 1, 1st | | | | | | Floor [place], [place] | | | | | | [address] | | | | | | [phone] | | | +--------+---------+ + + + [...] of this encounter Progress Notes Guillermo Sanon I PT - 06/09/2012 1:08 PM PDTFormatting of this note might be different f rom the original. [id number] BRODY FARAH Date of : 1990 Start of care: 02/14/2012 Date of onset: 02/14/2012 Referring/Attending Practitioner: Janak Riojas MD . Primary/Referral Diagnosis/ICD-9: 355.71B CRPS (complex regional pain syndrome), lower limb Insurance: Payor: [facility] Plan: BCBS OUT OF STATE Product Type: PP O Service period from: 02/14/2012 to: 08/12/2012 Number visits used/authorized: 05/25 [facility] PHYSICAL THERAPY PROGRESS NOTE SUBJECTIVE: Age: 21 y.o. Sex: female Chief complaint: foot pain Current: pt was OK post last treatment. She twisted her ankle this morning on a speed bump. This happens a lot. She reports that she can work more, but she feels best when she only wo rks one three-hour shift per week. History of Presenting Problems: Brody Farah is [...] doctors and had two sympathetic nerve blocks. Pain rating at present: 8/10- worse than average because she turned her ankle. Symptoms are aggravated by: waking up in the morning, standing, walking, touching it, wind or a fan, rain, cold, TENS is bad. Pain is relieved by: sometimes pain meds. Objective Observation/posture: pt is alone in NAD. She is not using crutches and has minimal if any l imp. . Small knee bend: knee over toes L R 4", L 0" Lower Quarter Neurodynamics: Test Date 06/05/2012 06/07/2012 06/09/2012 Sit slump: Right: positive -20 degrees knee extension + cervical diff Left: positive -30 degrees knee extension + cervical diff Left -30 degrees in full slump + cervical diff left -25 degrees in full slump + cervical diff SLR: Right: positive 40 degrees lbp + ankle diff Left: coud not test secondary to pain with contact Right: positive 40 degrees lbp + ankl e diff Left: 25 degrees left 35 degrees Palpation: tender left low lumbar Baselines Activity 06/09/2012 06/07/2012 06/05/2012 05/24/2012 05/10/2012 05/03/2012 Walk without crutches Pt instructed to find her baseline Not this week 5- 8 minutes 1/4 m ile 1/4 mile unilateral rows Tiw 8lbs 3x15 7.5 x 5 scaption 0# to fatigue 1# 1x15 0# to fatigue amb with body weight support treadmill 5 minutes 1.2 mph 50% support 13 minutes 30%supp ort 1.2 mph Bird dogs 10 x 10 10x10 desensitization same Rubbing unaffected foot with mirror Rice Cotton balls Treatment provided: left lumbar gapping in right sidelying with leg in provocation position Kick your head off desensitization with foot in mirror body weight support treadmill per baseline table Pt instructed to find her baseline for walking without crutches at home. Home exercises: Static cervical isometerics in four [...] min ASSESSMENT: pt is doing well with core strength and shows more mobilty in nerve provocation positions. She is Independent with desensitization in a mirrror. I tried her on the body w eight support treadmill again today, but for only five minutes versus the thirteen minutes s he did last time which flared her up for three days. She may be ready to continue with ambul ation endurance, otherwise we can continue with upper and lower quarter core strength and ad d more load. Date Goals Time Frame Status 05/03/2012 Independent with home exercise program for cervical stabilization and upper quar ter endurance 4 weeks MET 06/09/2012 05/03/2012 Independent in pain management strategies 4 weeks MET 05/03/2012 Pt will be able to walk for .5 miles without a lasting increase in pain 8 week s Further goals to be determined next visit. Rehab Potential: Fair Goals discussed and agreed upon with Brody and family. Individual cultural and social needs addressed. PLAN: core strength, upper and lower quarter strength, adverse response to neural tension, ambulation endurance. Frequency/Duration: one- two per week This note is to serve as the discharge summary if Brody fails to attend further Physical Th erapy appointments or contact the therapist regarding any change in their status. [facility] Sanon [facility] Outpatient Rehabilitation Services Mailcode: Ch3[facility] [address] [facility], 1st Floor [facility] [address] documented in this encounter Plan of Treatment Not on filedocumented as of this encounter Procedures + +--------+ + + + | Procedure Name | Priori | Date/Time | Associated Diagnosis | Comments | | | ty | | | | + +--------+ + + + | DC MANUAL THER | Routin | 06/09/2012 | CRPS (complex | | | TECH,1+REGIONS,EA 15 | e | 2:46 PM | regional pain | | | MIN | | PDT | syndrome), lower | | | | | | limb | | + +--------+ + + + | DC THERAPEUTIC | Routin | 06/09/2012 | CRPS (complex | | | EXERCISES | e | 2:46 PM | regional pain | | | [...]
--- OUTSIDE RECORDS SUMMARY | ~2020-06-23 | XMS | Encounter Summary ---
Demographics + + + | Address | [address] | | | [place] [address] | + + + | Home Phone [...] Team Providers + +------+ + | Care Trolley Wire Installer Name | Role | Phone | [...] | | | | regional | ,PhD [address] | | | | | | pain | [address] | | | | | | syndrome | [address] | | | | | | type [address] | [address] | | | | | | left lower | [place], [place] | | | | | | extremity | [address] | | | | | | Other | Phone: | | | | | | chronic pain | [phone] | | | | | | S/P | Fax: | | | | | | insertion of | [phone] | | | | | | spinal [...] | | | | regional | ,PhD [address] | | | | | | pain | [address] | | | | | | syndrome | [address] | | | | | | type [address] of | Rd | | | | | | left lower | [place], [place] | | | | | | extremity | [address] | | | | | | Other | Phone: | | | | | | chronic pain | [phone] | | | | | | S/P | Fax: | | | | | | insertion of | [phone] | | | | | | spinal [...] + + | 04/26/ | Telephone | [facility] Comprehensive | Alex Sanchez, | | | 2019 | | Pain Center at | ,PhD [address] | | | | | [facility] | [address] | | | | | [address] | [place], [place] | | | | | [facility] | [address] | | | | | and Healing, | [phone] | | | | | | | | | | | Floor [place], [place] | | | | | | [address] | | | | | | [phone] | | | +--------+ + + + [...]
--- OUTSIDE RECORDS SUMMARY | ~2020-06-23 | XMS | Encounter Summary ---
Demographics + + + | Address | [address] | | | [place] [address] | + + + | Home Phone | | + + + | Preferred Language | Unknown | + + + | Marital Status | Single | + + + | Mu-Ism Affiliation | FMD | + + + | Race | White | + + + | Ethnic Group | Not or | + + + Author + + + | Author | [facility] | + + + | Organization | [facility] | + + + | Address | Unknown | + + + | Phone | Unavailable | + + + Support + + +---------+ + | Name | Relationship | Address | Phone | + + +---------+ + | Patricia Colin | ECON | Unknown | | + + +---------+ + Care Team Providers + +------+ + | Care Hospital Pharmacy Technician Name | Role | Phone | [...] + | 10/30/ | Refill | [facility] Comprehensive | Alex Sanchez, | Refill Request | | 2018 | | Pain Center at | ,PhD [address] [facility] | | | | | [facility] | [address] | | | | | [address] | [place], [place] | | | | | [facility] | [address] | | | | | and Martina, | [phone] | | | | | [facility] | | | | | | Floor [place], [place] | | | | | | [address] | | | | | | [phone] | | | +--------+--------+ + + + [...]
--- OUTSIDE RECORDS SUMMARY | ~2020-06-23 | XMS | Encounter Summary ---
Demographics + + + | Address | [address] | | | [place] [address] | + + + | Home Phone [...] Team Providers + +------+ + | Care Technical Manager Chemical Plant Name | Role | Phone | + +------+ + | Allegra Chaudhary | PCP | | + +------+ + Encounter Details +--------+ + + + + | Date | Type | Department | Care Team | Description | +--------+ + + + + | 10/21/ | Telephone | [facility] | Antony Beltre, | | | 2014 | | [place] [address] [address] | [address] | | | | | [address] | [place] [address] | | | | | for Health and | [phone] | | | | | [facility] [address] | | | | | | [place], [place] | | | | | | [address] | | | | | | [phone] | | | +--------+ + + + [...]
--- OUTSIDE RECORDS SUMMARY | ~2020-06-23 | XMS | Encounter Summary ---
Demographics + + + | Address | [address] | | | [place] [address] | + + + | Home Phone [...] Team Providers + +------+ + | Care Neonatal Doctor Name | Role | Phone | + +------+ + | Justo Vazquez MD | PCP | | + +------+ + Encounter Details +--------+ + + + + | Date | Type | Department | Care Team | Description | +--------+ + + + + | 08/03/ | Telephone | [facility] | Alex Sanchez, | | | 2018 | | Pain Center at | ,PhD [address] | | | | | [facility] | [address] | | | | | [address] | [place], [place] | | | | | [place] for [facility] | [address] | | | | | and Healing, | [phone] | | | | | | | | | | | Floor [place], [place] | | | | | | [address] | | | | | | [phone] | | | +--------+ + + + [...]
--- OUTSIDE RECORDS SUMMARY | ~2020-06-23 | XMS | Encounter Summary ---
Demographics + + + | Address | [address] | | | [place] [address] | + + + | Home Phone [...] Providers + +------+ + | Care Data Conversion Operator Name | Role | Phone | [...] + + | 08/08/ | Emergency | [facility] | Mable Villarreal MD | | | 2015 | | Department [address] | [address] [facility] | | | | | [address] | [address] | | | | | [facility] | [place], [place] | | | | | [place], [place] | [address] | | | | | [address] | [phone] | | | | | [phone] | | | | | | | [...] about "Gastroparesis: Care Instructions", log into your mobiDEOS account at [email or web address]. You can enter M106 in the EVERFANS" search box. Not on mobiDEOS? Review the mobiDEOS section of your After Visit Summary for directions on ho w to sign up. [id number] [employer] [place]. Care instructions adapted under license by [facility] [employer]. This care instruction is for use with your licensed healthcar e professional. If you have questions about a medical condition or this instruction, always ask your healthcare professional. [employer] [place] disclaims any warranty or liabili ty for your use of this information. Content Version: [id number]; Current as of: October 03, 2015 documented [...] | | | LABORATORY | | | GREEK | | | SERVICES, | | | [...] + + + + + | [facility] | [address] | [place] [address] | | | SERVICES, CORE | GUILLERMO [...] DEPT OF | [address] | [place], [place] | | | CARDIOLOGY | [address] | [address] | | + + + + + [...] | + + + + + | [facility] | [address] | [place] [address] | | | SERVICES, CORE | PARK [...] [facility] | [address] | [place] [address] | | | SERVICES, LILLIAN | GUILLERMO [...] KEVIN SHAH | [address] | [place] [address] | | | SERVICES, CORE | PARK [...] + + + + + | [facility] | [address] | [place] [address] | | | [facility] | [address] | | | + [...] organisms may result in clinically misleading | [facility] | | information due to the low numbers and /or mixture of organisms | | | present. Recollection is suggested if clinically indicated. | | + + + + + + + + | Performing | Address | City/State/Zipcode | Phone Number | | Organization | | | | + + + + + | [facility] | [address] | [place] [address] | | | [place] | | | | + + + [...] [facility] | [address] | [place] [address] | | | SERVICES, CORE | PARK [...] | + + + + + | [facility] | [address] | [place] [address] | | | SERVICES, CORE | [address] | | | + + + + + LIPASE, PLASMA (08/08/2016 2:22 PM PDT) + +---------+ + + + | Component | Value | Ref Range | Performed | Pathologist | | | | | At | Signature | + +---------+ + + + | LIPASE | 116 (L) | 152 - 353 U/L | [facility] | | | (LAB) | | | [...] + + + + + | [facility] | [address] [facility] | [place] [address] | | | SERVICES, CORE | [address]LLERMO [...] | | | LABORATORY | | | GREEK | | | SERVICES, | | | [...] + + + + + | [facility] | [address] | [place] [address] | | | SERVICES, CORE | [address] | | | + + + + + ED INFORMATION EXCHANGE (08/08/2016 12:21 PM PDT) + + + + + + | Component | Value | Ref Range | Performed | Pathologist | | | | | At | Signature | + + + + + + | [facility] | [id number] | | COLLECTIVE | | | | [id number] | | MEDICAL | | | | [...] ------- ---- | | | 08/08/2016 12:21 [facility] and | | | [facility] [place] Emergency [address]. abd pain | | | 08/04/2016 03:50 [facility] | | | [place] Emergency ABD PAIN,VOMITING 06/26/2016 22:44 | | | [facility] [place] | | | Emergency -Acquired absence of other specified parts of | | | | | | digestive | | | tract | | | | | | -Gastroparesis | | | | | | -Unspecified abdominal pain | | | | | | -Gastro-esophageal reflux disease without | | | esophagitis | | | | | | -Other intermediate frame tender (current) drug therapy [facility]22[facility]2016 17:35 [facility] [place] [facility] | [facility] -abd pain, "I have gastroparesis", since , seen | | | | | | at St | | | [facility] yesterday. has been to the er | | | | | | several times | | | | | | -Abdominal Pain | | | | | | -Gastroparesis 06/19/2016 | | | 04:51 [facility] [place] | | | [place] Emergency -Gastroparesis | | | | | | -Unspecified abdominal pain | | | | | | -Other intermediate frame tender | | | (current) drug therapy | | | | | | -Acquired absence of other specified parts of | | | | | | digestive tract | | | 06/18/2016 07:18 [facility] | | | [place] Emergency [...] Location ------ --------- 1 | | | [facility] 1 | | | [facility] 8 [facility] 10 | | | Total Note: [...] COLLECTIVE MEDICAL | [address] | [place], [place] | [phone] | | TECHNOLOGIES | [address] | [id number] | | + + + + + [...]
--- OUTSIDE RECORDS SUMMARY | ~2020-06-23 | XMS | Encounter Summary ---
Demographics + + + | Address | [address] | | | [place] [address] | + + + | Home Phone [...] + +------+ + | Care Real Estate Firm Manager Name | Role | Phone | + +------+ + | Justo Vazquez MD | PCP | | + +------+ + Encounter Details +--------+ + + + + | Date | Type | Department | Care Team | Description | +--------+ + + + + | 12/28/ | Entry Writer | [facility] Comprehensive | Alex Sanchez, | Arthralgia of lower | | 2018 | | Pain Center at | ,PhD [address] | leg, unspecified | | | | [facility] | [address] | laterality (Primary | | | | [address] | [place], [place] | Dx) | | | | Center for Health | [address] | | | | | and Healing, | [phone] | | | | | | | | | | | Floor [place], [place] | | | | | | [address] | | | | | | [phone] | | | +--------+ + + + [...]
--- OUTSIDE RECORDS SUMMARY | ~2020-06-23 | XMS | Encounter Summary ---
Demographics + + + | Address | [address] | | | [place] [address] | + + + | Home Phone [...] Team Providers + +------+ + | Care Etcher Hand Name | Role | Phone | [...] | | [facility] for | [place], [place] | | | | | Health and Healing, | [address] | | | | | | [phone] | | | | | [place], [place] | | | | | | [address] | | | | | | [phone] | | | +--------+ + + + [...]
--- OUTSIDE RECORDS SUMMARY | ~2020-06-23 | XMS | Encounter Summary ---
Demographics + + + | Address | [address] | | | [place] [address] | + + + | Home Phone [...] Providers + +------+ + | Care Manager Orange Name | Role | Phone | + [...] | | | | | Constipation | [address] | [facility] | | | | | , | [address] | [place] for | | | | | unspecified | [address] | Health and | | | | | constipation | [place], [place] | Healing, | | | | | type | [address] | Building [address] | | | | | Abdominal | | [place], [place] | | | | | pain, | | [address] | | | | | unspecified | | Phone: | | | | | location | | [phone] | | | | | Procedures | | Fax: | | | | | CONSULT TO | | [phone] | | | | | GI PROCEDURE | | | | | | | UNIT: | | | | | | | COLONOSCOPY | | | | | | | LA | | | | | | | [...] | | 2015 | | Center at [facility] [address] | MD Melissa | Vomiting (Bile) | | | | [facility] | | | | | | for Health and | | | | | | Healing, [address] | | | | | | [place], [place] | | | | | | [address] | | | | | | [phone] | | | +--------+ + + + [...]
--- OUTSIDE RECORDS SUMMARY | ~2020-06-23 | XMS | Encounter Summary ---
Demographics + + + | Address | [address] | | | [place] [address] | + + + | Home Phone [...] Team Providers + +------+ + | Care Oral Surgery Technician Name | Role | Phone | [...] Medication Question | | 2016 | | [place] [address] [address] | | | | | | S [facility] | | | | | | for Health and | | | | | | Healing, [facility] | | | | | | [place], [place] | | | | | | [address] | | | | | | [phone] | | | +--------+ + + + [...]
--- OUTSIDE RECORDS SUMMARY | ~2020-06-23 | XMS | Encounter Summary ---
Demographics + + + | Address | [address] | | | [place] [address] | + + + | Home Phone [...] Team Providers + +------+ + | Care Dramatic Director Name | Role | Phone | + +------+ + | Justo Vazquez MD | PCP | | + +------+ + Encounter Details +--------+ + + + + | Date | Type | Department | Care Team | Description | +--------+ + + + + | 06/04/ | Documentati | [facility] Comprehensive | Alex Sanchez, | | | 2019 | on | Pain Center at | ,PhD [address] | | | | | [facility] | [address] | | | | | [address] | [place], [place] | | | | | [place] for [facility] | [address] | | | | | and Healing, | [phone] | | | | | | | | | | | Floor [place], [place] | | | | | | [address] | | | | | | [phone] | | | +--------+ + + + [...]
--- OUTSIDE RECORDS SUMMARY | ~2020-06-23 | XMS | Encounter Summary ---
Demographics + + + | Address | [address] | | | [place] [address] | + + + | Home Phone [...] Team Providers + +------+ + | Care Sash Clamp Operator Name | Role | Phone | [...]
--- OUTSIDE RECORDS SUMMARY | ~2020-06-23 | XMS | Encounter Summary ---
Demographics + + + | Address | [address] | | | [place] [address] | + + + | Home Phone [...] Providers + +------+ + | Care Sales Financial Analyst Name | Role | Phone | + +------+ + | Justo Vazquez MD | PCP | | + +------+ + Encounter Details +--------+ + + + + | Date | Type | Department | Care Team | Description | +--------+ + + + + | 03/18/ | Telephone | [facility] | Kenny Gaspar MD | | | 2017 | | [place] [address] | | | | | | S [facility] | | | | | | for Health and | | | | | | [facility], Building 2 | | | | | | [facility], [place] | | | | | | [address] | | | | | | [phone] | | | +--------+ + + + [...]
--- OUTSIDE RECORDS SUMMARY | ~2020-06-23 | XMS | Encounter Summary ---
Demographics + + + | Address | [address] | | | [place] [address] | + + + | Home Phone [...] Team Providers + +------+ + | Care Insurance Loss Adjuster Name | Role | Phone | + [...] Pharmacy | | | | | | [address] | | | | | | [place], [place] | | | | | | [address] | | | | | | [phone] | | | +--------+ + + + [...]
--- OUTSIDE RECORDS SUMMARY | ~2020-06-23 | XMS | Encounter Summary ---
Demographics + + + | Address | [address] | | | [place] [address] | + + + | Home Phone [...] Team Providers + +------+ + | Care Locomotive Pipe Fitter Name | Role | Phone | + +------+ + | Justo Vazquez MD | PCP | | + +------+ + Encounter Details +--------+ + + + + | Date | Type | Department | Care Team | Description | +--------+ + + + + | 08/30/ | Documentati | [facility] at [facility] | Jamel Madden G, | | | 2018 | on | [address] | PhD [address] | | | | | Center for Health | [place], [place] | | | | | and Healing, | [address] | | | | | | [phone] | | | | | Floor [place], [place] | | | | | | [address] | | | | | | [phone] | | | +--------+ + + + [...]
--- OUTSIDE RECORDS SUMMARY | ~2020-06-23 | XMS | Encounter Summary ---
Demographics + + + | Address | [address] | | | [place] [address] | + + + | Home Phone [...] Team Providers + +------+ + | Care Head Char Filter Tank Tender Name | Role | Phone [...] Pharmacy | | | | | | [address] | | | | | | Loop [place], [place] | | | | | | [address] | | | | | | [phone] | | | +--------+ + + + [...]
--- OUTSIDE RECORDS SUMMARY | ~2020-06-23 | XMS | Encounter Summary ---
Demographics + + + | Address | [address] | | | [place] [address] | + + + | Home Phone [...] Providers + +------+ + | Care Gas Load Dispatcher Name | Role | Phone | [...] with nausea | [address] | [address] [place], | | | | | Complex | Rd | [place] | | | | | regional | [place], [place] | [address] | | | | | pain | [address] | Phone: | | | | | syndrome | Phone: | [phone] | | | | | type 1 of | [phone] | Fax: | | | | | left lower | Fax: | [phone] | | | | | extremity | [phone] | | | | | | Procedures [...] | | | | | unspecified | [facility] | [address] | | | | | location | Rd | [facility] | | | | | Procedures | [place], [place] | Rd [place], | | | | | CONSULT TO | [address] | [place] | | | | | PAIN | | [address] | | | | | MANAGEMENT | | Phone: | | | | | | | [phone] | | | | | | | Fax: | | | | | | | [phone] | +--------+--------+ + + + + Encounter Details +--------+---------+ + + + | Date | Type | Department | Care Team | Description | +--------+---------+ + + + | 04/19/ | Office | [facility] Ilene | Alex Sanchez, | Intractable cyclical | | 2018 | Visit | Pain Center at | ,PhD [address] | vomiting with | | | | [facility] | [address] | nausea (Primary Dx); | | | | [address] | [place], [place] | Complex regional | | | | [place] for [facility] | [address] | pain syndrome type 1 | | | | and Healing, | [phone] | of left lower | | | | Building | | extremity | | | | Floor [facility] [place] | | | | | | [address] | | | | | | [phone] | | | +--------+---------+ + + + [...] might be differe nt from the original. [facility] Center Return Visit Date: 04/20/2018 Chief Complaint Patient presents with Abdominal pain Back pain Pain in left leg History of Present Illness: Tracie Farah is a 27 year old female, whose last appoi ntment at the [facility] was 12/27/2017, for a [...] not help for the abdominal pain). PA[facility]BRIEF: [facility] Brief Pain Inventory: (ten= worst possible [...] Trial spinal cord stimulator leads 08/02/2012 [facility], Surgeon: Janak Riojas MD [...] History Social History Narrative Single. Goes to [employer] with a light load. Has been working at [employer], can' t work on [email or web address]. Has roommates. Allergies Allergen Reactions Morphine Anaphylaxis [...] by physician. Concentration is 150mg/mL. Compounded by [facility] ) KETOROLAC IM Inject into the [...] GRAM-5.86 GRAM SOLUTION Take as directed by [facility] Dig[facility]ive [facility]- 2 gallon bowel prep [...] to her by Christie Madrid MD in [place], [place]. As she chowdhury s since left the practice, Ms. Farah no longer has a prescriber for this medication. At [facility], we typically do [...] unclear etiology. [facility] by Toradol, [...] Follow up as needed Alex Sanchez MD,PhD [facility] 3 :41 PM [...]
--- OUTSIDE RECORDS SUMMARY | ~2020-06-23 | XMS | Encounter Summary ---
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
--- OUTSIDE RECORDS SUMMARY | ~2020-06-23 | XMS | Encounter Summary ---
Demographics + + + | Address | [address] | | | [place] [address] | + + + | Home Phone [...] Team Providers + +------+ + | Care Learning Development Specialist Name | Role | Phone | [...] Rd | | | | | | [place], [place] | | | | | | [address] | | | +--------+ + + + [...]
--- OUTSIDE RECORDS SUMMARY | ~2020-06-23 | XMS | Encounter Summary ---
Demographics + + + | Address | [address] | | | [place] [address] | + + + | Home Phone [...] Providers + +------+ + | Care Medical Recruiter Name | Role | Phone | + +------+ + | Justo Vazquez MD | PCP | | + +------+ + Encounter Details +--------+ + + + + | Date | Type | Department | Care Team | Description | +--------+ + + + + | 06/07/ | Telephone | [facility] | Alex Sanchez, | | | 2019 | | Pain Center at | ,PhD [address] | | | | | [facility] | [address] | | | | | [address] | [place], [place] | | | | | [place] for [facility] | [address] | | | | | and Healing, | [phone] | | | | | | | | | | | Floor [place], [place] | | | | | | [address] | | | | | | [phone] | | | +--------+ + + + [...]
--- OUTSIDE RECORDS SUMMARY | ~2020-06-23 | XMS | Encounter Summary ---
Demographics + + + | Address | [address] | | | [place] [address] | + + + | Home Phone [...] Providers + +------+ + | Care General Maintenance Helper Name | Role | Phone | [...] Pain | | 2016 | | Center [place] [address] | | | | | | S [facility] | | | | | | for Health and | | | | | | Healing, [address] | | | | | | [place], [place] | | | | | | [address] | | | | | | [phone] | | | +--------+ + + + [...]
--- OUTSIDE RECORDS SUMMARY | ~2020-06-23 | XMS | Clinical Summary ---
Demographics + + + | Address | [address] | | | [place] [address] | + + + | Home Phone | | + + + | Preferred Language | Unknown | + + + | Marital Status | Single | + + + | Synagogue Affiliation | 1073 | + + + | Race | Unknown | + + + | Ethnic Group | Unknown | + + + Author + + + | Author | [facility] | | | and [place] | + + + | Organization | [facility] | | | and [place] [...] | [place] | | | | | [address] | | + + + + + | Bryant Farah | ECON | Unknown | | + + + + + Care Team Providers + +------+ + | Care Criminal Profiler Name | Role | Phone | + [...] + + Plan of Treatment + + +-------+ + | Health Maintenance | Due Date | Last | Comments | | | | Done | | + + +-------+ + | Vaccine: | | | | | Dtap/Tdap/Td (1 - | 1 | | | | Tdap) | | | | + + +-------+ + | Cervical Cancer | | | | | Screening (Pap) | 3 | | | + + +-------+ + | Vaccine: Influenza | | | | | (#1) | 0 | | | + + +-------+ + Results Not on filefrom Last 3 [...] +--------+ +---------+--------+ | MEDICARE | MEDICA | [id number] | 07/15/20 | [phone] | | Medica | | | RE | | 15-Pre | 5 | | re | | | PART A | | sent | | | | | | AND B | | | | | | + +--------+ +--------+ +---------+--------+ | MEDICAID [place] | MEDICA | [id number] | | [phone] | | Medica | [...] Self | [birth year] | [address] | | Anika | gabo/Brian | | 1989 | [phone] | [place] [address] | | | evita | | | 6 (Home) | | + +--------+ +--------+ + +"
--- OUTSIDE RECORDS SUMMARY | ~2020-06-23 | XMS | Encounter Summary ---
Demographics + + + | Address | [address] | | | [place] [address] | + + + | Home Phone [...] Team Providers + +------+ + | Care Gang Saw Operator Name | Role | Phone | [...] | | pain | [address] | [place], [place] | | | | | syndrome | [place] | [address] | | | | | type 1 of | [address] | Phone: | | | | | left lower | Phone: | [phone] | | | | | extremity | [phone] | Fax: | | | | | Midline low | Fax: | [phone] | | | | | back pain | [phone] | | | | | | without [...] Ave | | | | | | [place], [place] | [facility] [place] | | | | | | [address] | [address] | | | | | | Phone: | Phone: | | | | | | [phone] | [phone] | | | | | | Fax: | Fax: | | | | | | [phone] | [phone] | +--------+---------+ + + + + Encounter Details +--------+---------+ + + + | Date | Type | Department | Care Team | Description | +--------+---------+ + + + | 07/04/ | Office | [facility] Comprehensive | Lane Reyes, | Complex regional | | 2019 | Visit | Pain Center at | [place] [address] | pain syndrome type 1 | | | | [place] | [place], [place] | of left lower | | | | [address] | [address] | extremity (Primary | | | | Center for [facility] | [phone] | Dx); Midline low | | | | and Healing, | | back pain without | | | | Building | | sciatica, | | | | Floor [place], [place] | | unspecified | | | | [address] | | chronicity; | | | | [phone] | | Sacroiliac pain; | | | [...] and help in coping with the pain. 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 Has been working at [employer], can' t work on crSalonmeisterches. Has roommates. Allergies Allergen Reactions Morphine Anaphylaxis [...] GRAM SOLUTION Take as directed by [facility] Digestive [facility]- 2 gallon bowel prep POLYETHYLENE GLYCOL 3350 17 GRAM/DOSE ORAL POWDER Take 17 g by mouth once daily. PROMETHAZINE 12.5 MG TABLET Take 1 tablet by mouth four times daily as needed for nausea/vo miting. SUCRALFATE 1 GRAM TABLET Take 1 g by mouth four times daily. Radiology/Diagnostic Tests: X-RAY SPINE CERV 4 VIEWS Order: [id number] Performed: 06/12/2018 11:40 Status: Final result Visible [...] that the treatment performed by the chiropractic leadership program internship, Niesha Reveles, was directly observed by myself the primary chiropractor Lane Reyes [place] Visit Diagnoses: ICD-10-CM 1. Complex regional pain syndrome type 1 of left lower extremity G90.522 CONSULT TO PAIN [facility] 2. Midline low back pain without sciatica, unspecified chronicity M54.5 CONSULT TO PAIN [facility] 3. Sacroiliac pain M53.3 CONSULT TO PAIN MANAGEMENT [place] CH[facility] MANIP,SPINAL,1-2 REGIONS 4. Sacral dysfunction M53.3 [place] CH[facility] MANIP,SPINAL,1-2 REGIONS 5. Somatic dysfunction of pelvis region M99.05 [place] CH[facility]OPRAC MANIP,SPINAL,1-2 REGIONS 6. Somatic dysfunction of sacral region M99.04 [place] CHIROPRAC MANIP,SPINAL,1-2 REGIONS Impression: Tracie Farah is [...] verified the above note written by Chiropractic leadership program internship of our visit wit h this patient as recorded by Lane Reyes [place] [facility] AT [address] Mail Code: [id number] [place] [address] documented in this e ncounter Plan of Treatment Not on filedocumented as of this encounter Procedures + +--------+ + + + | Procedure Name | Priori | Date/Time | Associated Diagnosis | Comments | | | ty | | | | + +--------+ + + + | [place] CHIROPRAC | Routin | 07/10/2019 | Sacroiliac [...]
--- OUTSIDE RECORDS SUMMARY | ~2020-06-23 | XMS | Encounter Summary ---
Demographics + + + | Address | [address] | | | [place] [address] | + + + | Home Phone [...] + +------+ + | Care Professor Of Philosophy Name | Role | Phone | + [...] | pain, | [address] | [address] | | | | | unspecified | [address] | [address] | | | | | abdominal | Rd | [place], [place] | | | | | location | [facility] [place] | [address] | | | | | Pain of | [address] | Phone: | | | | | upper | | [phone] | | | | | abdomen | | Fax: | | | | | Complex | | [phone] | | | | | regional | [...] | | | | | | | COOK DESSERT | | | +--------+---------+ + + + + Reason for Visit + + + | Reason | Comments | + + + | Procedure | | + + + Encounter Details +--------+ + + + + | Date | Type | Department | Care Team | Description | +--------+ + + + + | 08/30/ | Telephone | [facility] | Ilene Bright, | Procedure | | 2017 | | Pain Center at | BEAM WARPER [address] | | | | | [facility] | [place], [place] | | | | | [address] | [address] | | | | | [facility] | [phone] | | | | | and Healing, | | | | | | Building | | | | | | Floor [place], [place] | | | | | | [address] | | | | | | [phone] | | | +--------+ + + + [...]
--- OUTSIDE RECORDS SUMMARY | ~2020-06-23 | XMS | Encounter Summary ---
Demographics + + + | Address | [address] | | | [place] [address] | + + + | Home Phone [...] Team Providers + +------+ + | Care United [place] Attorney Name | Role | Phone | [...] | 2017 | on | Center at [facility] [address] | [address] | | | | | [address] [facility] | [facility] [place] | | | | | for Health and | [address] | | | | | Healing, Building 2 | [phone] | | | | | [place], [place] | | | | | | [address] | | | | | | [phone] | | | +--------+ + + + [...]
--- OUTSIDE RECORDS SUMMARY | ~2020-06-23 | XMS | Encounter Summary ---
Demographics + + + | Address | [address] | | | [place] [address] | + + + | Home Phone [...] Team Providers + +------+ + | Care Corn Sheller Operator Name | Role | Phone | + +------+ + | Justo Vazquez MD | PCP | | + +------+ + Encounter Details +--------+ + + + + | Date | Type | Department | Care Team | Description | +--------+ + + + + | 05/14/ | Telephone | [facility] | Alex Sanchez, | | | 2019 | | Pain Center at | ,PhD [address] | | | | | [facility] | [address] | | | | | [address] | [place], [place] | | | | | [place] for [facility] | [address] | | | | | and Healing, | [phone] | | | | | | | | | | | Floor [place], [place] | | | | | | [address] | | | | | | [phone] | | | +--------+ + + + [...]
--- OUTSIDE RECORDS SUMMARY | ~2020-06-23 | XMS | Encounter Summary ---
Demographics + + + | Address | [address] | | | [place] [address] | + + + | Home Phone [...] Providers + +------+ + | Care Product Mgmt Dev Manager Name | Role | Phone | [...] | | 2015 | | Center at [facility] [address] Junior Torres MD | Treatment Planning | | | | [address] [place] | | | | | | for Health and | | | | | | [facility] [place], [facility] 2 | | | | | | [place], [place] | | | | | | [address] | | | | | | [phone] | | | +--------+ + + + [...]
--- OUTSIDE RECORDS SUMMARY | ~2020-06-23 | XMS | Encounter Summary ---
Demographics + + + | Address | [address] | | | [place] [address] | + + + | Home Phone [...] Team Providers + +------+ + | Care Podiatric Physician Name | Role | Phone | + +------+ + | Justo Vazquez MD | PCP | | + +------+ + Encounter Details +--------+ + + + + | Date | Type | Department | Care Team | Description | +--------+ + + + + | 01/06/ | Document-Sd | [facility] | Alex Sanchez, | | | 2018 | annemily | Pain Center at | ,PhD [address] | | | | | [facility] | [facility] [address] | | | | | [address] | [place], [place] | | | | | [place] for [facility] | [address] | | | | | and Healing, | [phone] | | | | | | | | | | | Floor [place], [place] | | | | | | [address] | | | | | | [phone] | | | +--------+ + + + [...]
--- OUTSIDE RECORDS SUMMARY | ~2020-06-23 | XMS | Encounter Summary ---
Demographics + + + | Address | [address] | | | [place] [address] | + + + | Home Phone [...] Providers + +------+ + | Care Rn Critical Care Name | Role | Phone | + [...] | | | | | syndrome | [facility] | [facility] | | | | | type 1 of | Rd | Rd [place], | | | | | left lower | [facility]NOTE 3], [place] | [place] | | | | | extremity | [address] | [address] | | | | | Procedures | Phone: | Phone: | | | | | REQUEST TO | [phone] | [phone] | | | | | SURGERY | Fax: | Fax: | | | | | AIR QUALITY SPECIALIST | [phone] | [phone] | +--------+---------+ + + + + Reason [...] | | | | unspecified | [address] | [address] | | | | | location | Rd | [address] | | | | | Procedures | [place], [place] | [place], | | | | | CONSULT TO | [address] | [place] | | | | | PAIN | | [address] | | | | | MANAGEMENT | | Phone: | | | | | | | [phone] | | | | | | | Fax: | | | | | | | [phone] | +--------+--------+ + + + + Encounter Details +--------+---------+ + + + | Date | Type | Department | Care Team | Description | +--------+---------+ + + + | 10/09/ | Office | [facility] | Alex Sanchez, | Complex regional | | 2018 | Visit | Pain Center at | ,PhD [address] [facility] | pain syndrome type 1 | | | | [facility] | [facility] [address] | of left lower | | | | [address] | [place], [place] | extremity (Primary | | | | [place] for [facility] | [address] | Dx) | | | | and Healing, | [phone] | | | | | | | | | | | Floor [place], [place] | | | | | | [address] | | | | | | [phone] | | | +--------+---------+ + + + [...] with an external order to see a weapons specialist today. Please p resent this referral [...] insurance. PRE-PROCEDURE INSTRUCTIONS 1. Please bring a milk truck driver with you as we may [...] or blood thinning medications (other than aspirin), [facility] doctor who is doing your procedure will communicate with the provider who is prescribing y our anticoagulant therapy. If you do not have clear instructions on what to do with your an ticoagulant by 2 weeks before your procedure, please contact [facility] to cl arify your instructions. The phone number for questions or concerns is [phone]. documented in this encounter Progress Notes Alex [...] notes. Alex Sanchez MD,PhD [facility] signed by Alex Sanchez MD,PhD at 09/15 [...] Person MD - 10/09/2018 10:00 AM PST [facility] Return Visit Date: 10/09/2018 Chief Complaint Patient presents with Back pain Low back pain Pain in left leg Knee pain Ankle pain Foot pain History of Present Illness: Tracie Farah is a 28 year old female, whose last appoi ntment at the [facility] [place] was September 28, 2018, for a clinic visit with Yun Frey NP. At that time our plans were: Recommendations/Plan: 1. Recommend to keep her appointment with Dr. Sanchez on 10/02/2018. 2. To contact the [facility] rep if she has any further question [...] She went into the emergency room in [place], [place] where they rem cady the leads. She [...] which she suspects also used dissolvable stitches. 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 Has been working at [employer], can' t work on [email or web address]. Has roommates. Allergies Allergen Reactions Morphine Anaphylaxis [...] the vein (IV) every eight hour s. 4779-6128-36 COMPOUNDED MED RX CONTROLLED (SEE ADMIN INSTRUCT [...] by physician. Concentration is 150mg/mL. Compounded by [employer] ( [phone]) KETOROLAC IM Inject into the muscle (IM). [...] (IV) every twel ve hours as needed. 7422-9083-14 ONDANSETRON 4 MG DISINTEGRATING TABLET Dissolve 1 [...] and summary of old medical records (source: [employer]), as summarized in the body of the [...] Key. Arben Valerio MD [facility] AT [facility] 15TH FLOOR [address] [facility] Mail Code: Ch15p [place] [address] [phone] signed by Alex Sanchez MD,PhD at 10/10/2018 9:27 AM [facility] umented in this encounter Plan of Treatment Not on filedocumented as of this encounter Visit Diagnoses + + | Diagnosis | + + | Complex regional pain syndrome type 1 of left lower extremity - Primary | + + documented in this encounter
--- OUTSIDE RECORDS SUMMARY | ~2020-06-23 | XMS | Encounter Summary ---
Demographics + + + | Address | [address] | | | [place] [address] | + + + | Home Phone [...] Team Providers + +------+ + | Care Shipsmith Name | Role | Phone | + [...] | | Complex | Alex Alba, | [facility] [address] | | | | | regional | ,PhD [address] | [address] | | | | | pain | [address] | [address] | | | | | syndrome | [address] | [address], | | | | | type 1 of | Rd | Basement | | | | | left lower | [place], [place] | [place], [place] | | | | | extremity | [address] | [address] | | | | | Muscle pain | Phone: | Phone: | | | | | Procedures | [phone] | [phone] | | | | | NM BONE | Fax: | Fax: | | | | | &/OR JOINT | [phone] | [phone] | | | | | IMAGING | [...] | | | | | | | PA BONE | | | | | | | IMAGING, | | | | | | | LIMITED AREA | | | | | | | PA BONE | | | | | | [...] | | 2018 | Encounter | at [facility] [address] | ,PhD [address] [facility] | | | | | [address] | [address] | | | | | [address], | [place], [place] | | | | | [facility], | [address] | | | | | [place] [address] | [phone] | | | | | [phone] | | | +--------+ + + + [...]
--- OUTSIDE RECORDS SUMMARY | ~2020-06-23 | XMS | Encounter Summary ---
Demographics + + + | Address | [address] | | | [place] [address] | + + + | Home Phone [...] Providers + +------+ + | Care Glass Designer Name | Role | Phone | [...] | | | | | Constipation | [address] | [address] | | | | | , | [address] | [place] for | | | | | unspecified | [address] | Health and | | | | | constipation | [place], [place] | Healing, | | | | | type | [address] | Building [address] | | | | | Abdominal | | [place], [place] | | | | | pain, | | [address] | | | | | unspecified | | Phone: | | | | | location | | [phone] | | | | | Procedures | | Fax: | | | | | CONSULT TO | | [phone] | | | | | GI PROCEDURE | | | | | | | UNIT: | | | | | | | COLONOSCOPY | | | | | | | GA | | | | | | | [...] | | 2015 | | Center at [facility] [address] | MD Melissa | Vomiting (Bile) | | | | [address] | | | | | | for Health and | | | | | | Healing, Building 2 | | | | | | | | | | | | [address] | | | | | | [phone] | | | +--------+ + + + [...]
--- OUTSIDE RECORDS SUMMARY | ~2020-06-23 | XMS | Encounter Summary ---
Demographics + + + | Address | [address] | | | [place] [address] | + + + | Home Phone [...] Team Providers + +------+ + | Care Fuselage Framer Name | Role | Phone | + +------+ + | Justo Vazquez MD | PCP | | + +------+ + Encounter Details +--------+ + + + + | Date | Type | Department | Care Team | Description | +--------+ + + + + | 07/28/ | Documentati | [facility] Comprehensive | Ilene Bright, | | | 2017 | on | Pain Center at | VIDEO POKER FLOORMAN [address] | | | | | [facility] | [facility] [place] | | | | | [address] | [address] | | | | | [place] for [facility] | [phone] | | | | | and Healing, | | | | | | | | | | | | Floor [place], [place] | | | | | | [address] | | | | | | [phone] | | | +--------+ + + + [...]
--- OUTSIDE RECORDS SUMMARY | ~2020-06-23 | XMS | Encounter Summary ---
Demographics + + + | Address | [address] | | | [place] [address] | + + + | Home Phone [...] Team Providers + +------+ + | Care Account Specialist Name | Role | Phone | + +------+ + | Justo Vazquez MD | PCP | | + +------+ + Encounter Details +--------+ + + + + | Date | Type | Department | Care Team | Description | +--------+ + + + + | 03/17/ | MyChart | [facility] Comprehensive | Yun Frey NP | Welcome | | 2017 | Encounter | Pain Center at | [address] | | | | | [facility] | [place], [place] | | | | | [address] | [address] | | | | | [place] for [facility] | [phone] | | | | | and Healing, | | | | | | | | | | | | Floor [place], [place] | | | | | | [address] | | | | | | [phone] | | | +--------+ + + + [...]
--- OUTSIDE RECORDS SUMMARY | ~2020-06-23 | XMS | Encounter Summary ---
Demographics + + + | Address | [address] | | | [place] [address] | + + + | Home Phone [...] Team Providers + +------+ + | Care Helper Electrical Name | Role | Phone | + +------+ + | Justo Vazquez MD | PCP | | + +------+ + Encounter Details +--------+ + + + + | Date | Type | Department | Care Team | Description | +--------+ + + + + | 05/14/ | Telephone | [facility] | Alex Sanchez, | | | 2019 | | Pain Center at | ,PhD [address] | | | | | [facility] | [address] | | | | | [address] | [place], [place] | | | | | [place] for [facility] | [address] | | | | | and Healing, | [phone] | | | | | | | | | | | Floor [place], [place] | | | | | | [address] | | | | | | [phone] | | | +--------+ + + + [...]
--- OUTSIDE RECORDS SUMMARY | ~2020-06-23 | XMS | Encounter Summary ---
Demographics + + + | Address | [address] | | | [place] [address] | + + + | Home Phone [...] Providers + +------+ + | Care Rn Surgical Name | Role | Phone | + [...] Pain Medicine | Diagnoses | Chasity, | Behavior Analyst Chh1 | | | | / Pain | Abdominal | MD Kenny | [address] | | | | Management | pain, | [address] | [facility] | | | | | unspecified | [facility] | for Health | | | | | location | Rd | and Healing, | | | | | Procedures | [place], [place] | Building | | | | | CONSULT TO | [address] | 1,15th Floor | | | | | PAIN | | [place], [place] | | | | | MANAGEMENT | | [address] | | | | | | | Phone: | | | | | | | [phone] | | | | | | | Fax: | | | | | | | [phone] | +--------+--------+ + + + + Reason [...] Order; Abdominal | | 2016 | | Center [place] [address] [address] | | pain | | | | [address] [facility] | | | | | | for Health and | | | | | | Healing, [facility] 2 | | | | | | [place], [place] | | | | | | [address] | | | | | | [phone] | | | +--------+ + + + [...]
--- OUTSIDE RECORDS SUMMARY | ~2020-06-23 | XMS | Encounter Summary ---
Demographics + + + | Address | [address] | | | [place] [address] | + + + | Home Phone [...] Team Providers + +------+ + | Care Mold Sheet Cleaner Name | Role | Phone | [...] | | Pain | Complex | Ilene, DISTRIBUTION COORDINATOR | Catriona M, | | | | Management | regional | [address] | PSY D [address] | | | | | pain | [address] | [address] | | | | | syndrome | [place], [place] | [place], [place] | | | | | type 1 of | [address] | [address] Phone: | | | | | left lower | Phone: | [phone] | | | | | extremity | [phone] | Fax: | | | | | Intractable | Fax: | [phone] | | | | | cyclical | [phone] | | | | | | vomiting [...] | | | | | | | [place] | | | | | | | PSYCHIATRIC | | | | | | | DIAGNOSTIC | | | | | | | EVAL, NO MED | | | | | | | [facility] [place] | | | | | | | PSYCH TSTNG | | | | | | | PSYCH/PHYS | | | | | | | [place] | | | | | | | PSYCHOTHERAP | | | | | | | Y, 45 MIN | | | +--------+---------+ + + + + Encounter Details +--------+---------+ + + + | Date | Type | Department | Care Team | Description | +--------+---------+ + + + | 10/11/ | Office | Pain Center at [facility] | Jamel Bravo, | 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 The patient was referred for pain [...] by physician. Concentration is 150mg/mL. Compounded by [employer] ([phone]), Disp: , Rfl: 5 lamoTRIgine 200 mg [...] oral recon soln, Take as directed by [facility]- 2 gallon bowel prep, Disp: 8000 mL, [...] e. 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 For enjoyment the patient watches TV, reads, [...] time I spent was approximately 50 minutes dyaj-yk-ueii with the patient and approxima tely 1 hour 40 minutes of qhc-fkqa-rr-face testing, interpreting and synthesizing results. Jamel Bravo, PhD PAIN CENTER AT [facility] 15TH FLO[address] [facility] Mail Code: Ch15[place] [address] documented in this en counter [...]
--- OUTSIDE RECORDS SUMMARY | ~2020-06-23 | XMS | Encounter Summary ---
Demographics + + + | Address | [address] | | | [place] [address] | + + + | Home Phone [...] Team Providers + +------+ + | Care Fish Dressing Machine Feeder Name | Role | Phone | + +------+ + | Justo Vazquez MD | PCP | | + +------+ + Encounter Details +--------+ + + + + | Date | Type | Department | Care Team | Description | +--------+ + + + + | 08/07/ | Telephone | [facility] | Alex Sanchez, | | | 2019 | | Pain Center at | ,PhD [address] | | | | | [facility] | [address] | | | | | [address] | [place], [place] | | | | | [place] for [facility] | [address] | | | | | and Healing, | [phone] | | | | | | | | | | | Floor [place], [place] | | | | | | [address] | | | | | | [phone] | | | +--------+ + + + [...]
--- OUTSIDE RECORDS SUMMARY | ~2020-06-23 | XMS | Encounter Summary ---
Demographics + + + | Address | [address] | | | [place] [address] | + + + | Home Phone [...] Team Providers + +------+ + | Care Load Out Person Name | Role | Phone | [...] + + | 12/05/ | Hospital | [facility] | Alex Sanchez, | | | 2019 | Encounter | STAY [address] | ,PhD [address] [facility] | | | | | Courtney Mailcode: [facility] | [address] | | | | | [facility] | [place], [place] | | | | | Health and [facility], | [address] | | | | | [place] [address] | [phone] | | | | | [place], [place] | | | | | | [address] | | | | | | [phone] | | | +--------+ + + + [...] s/p successful DRG trial lead system with [employer] on 09/25/2018. No changes in H&P, [...] OPERATIVE NOTE Date: December 05, 2018 Location: [facility] [place] | | | Tracie Farah [id number] :1990, presents to clinic | | | for: Dorsal root ganglion stimulator implant PROCEDURE: Dorsal | | | root ganglion stimulator implant PRE-OPERATIVE DIAGNOSIS: Complex | | | regional Pain syndrome type 1 of left lower extremity | | | POST-OPERATIVE DIAGNOSIS: Complex regional Pain syndrome type 1 of | | | left lower extremity ATTENDING PHYSICIAN: Alex Sanchez | | | PROVIDER RELATIONS CONSULTANT: Arben Valerio MD ANESTHESIA: sedation by IVIS Cole | | | Carmen, supervised by duplex trimmer Ilir Valdes. | | | FINDINGS: Appropriate [...] sedation. Ms. Farah was escorted to the [facility] | | | [place], where she [...] to the | | | [facility] specialty sales representative. A test stimulation was performed [...] recovery. Images were saved, and sent to [employer] [place]. | | | Alex Sanchez (attending) was present for the entire procedure. | | | Arben Valerio MD I was present for the entire procedure | | | (spinal cord stimulator implantation with DRG leads at left L4 and | | | L5) and all bocanegra elements of this visit. I reviewed the | | | documentation of the other METAL SPRAYER PROTECTIVE COATING providers and concur with Dr. | | | Iman's findings. I edited his note. Alex Sanchez, | | | ,PhD Piped Pocket Machine Operator Anesthesiology and Pain Management | | | [facility] | | + + + HCG [...] + + | JOSE ANTONIO MIN | [address] [facility] | [place] [address] | | | OF CARE TESTS | [...]
--- OUTSIDE RECORDS SUMMARY | ~2020-06-23 | XMS | Encounter Summary ---
Demographics + + + | Address | [address] | | | [place] [address] | + + + | Home Phone [...] Providers + +------+ + | Care Electric Mule Driver Name | Role | Phone | [...] | | 2016 | | Center at [facility] [address] | | severe stomach Pain) | | | | [address] [facility] | | | | | | for Health and | | | | | | Healing, Building 2 | | | | | | [place], [place] | | | | | | [address] | | | | | | [phone] | | | +--------+ + + + [...]
--- OUTSIDE RECORDS SUMMARY | ~2020-06-23 | XMS | Encounter Summary ---
Demographics + + + | Address | [address] | | | [place] [address] | + + + | Home Phone [...] Providers + +------+ + | Care Inspector And Hand Packager Name | Role | Phone | + [...] | | 2017 | | Center at [facility] [address] | | | | | | [address] [facility] | | | | | | for Health and | | | | | | Healing, Building [address] | | | | | | [place], [place] | | | | | | [address] | | | | | | [phone] | | | +--------+--------+ + + + [...]
--- OUTSIDE RECORDS SUMMARY | ~2020-06-23 | XMS | Encounter Summary ---
Demographics + + + | Address | [address] | | | [place] [address] | + + + | Home Phone [...] Providers + +------+ + | Care Clinical Research Nurse Name | Role | Phone | [...] Rd | | | | | | [place], [place] | | | | | | [address] | | | +--------+ + + + [...]
--- OUTSIDE RECORDS SUMMARY | ~2020-06-23 | XMS | Encounter Summary ---
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 | FAMILY | Mailstop | | | | | of lower | MEDICINE P | [address] | | | | | limb | [address] | [place], [place] | | | | | | [place], | [address] | | | | | | [place] [address] | Phone: | | | | | | Phone: | [phone] | | | | | | [phone] | Fax: | | | | | | Fax: | [phone] | | | | | | [phone] | | +--------+--------+ + + + + Encounter Details +--------+---------+ + + + | Date | Type | Department | Care Team | Description | +--------+---------+ + + + | 08/04/ | Office | [facility] | Dale Cantu, | CRPS (complex | | 2011 | Visit | Pain Center at | MD [address] [facility] | regional pain | | | | [facility] | [facility] [id number] | syndrome), lower | | | | [address] | [place], [place] | limb (Primary Dx) | | | | [place] [facility] | [address] | | | | | and Healing, | [phone] | | | | | Building | | | | | | Floor [place], [place] | | | | | | [address] | | | | | | [phone] | | | +--------+---------+ + + + [...] evaluated the patient with Fellow Nhan Guo [facility], who conducted the initial history. I reviewed the history in det ail and edited his note. I was present for the examination and formulation portions of the encounter. I agree with the findings and the plan of care as documented in our notes. DALE CANTU MD Weaver Apprentice, [facility] Code Number Stamper, Pain Medicine Professor, Anesthesiology & Perioperative Medicine [...] physical activity and social withdrawal enok Gutierrez, [facility] - 08/04/2012 7:25 AM PDTFormatting of this note might be different from the origi nal. [facility] Return Visit with Dr. [...] has been treated at the Comprehensive [facility] for lower limb pain with the [...] and a pain drawing which I reviewed. [facility] Brief Pain Inventory: (ten= worst possible pain [...] The Review of Systems obtained by the [facility] was reviewed. Additional Review of [...] multiple programs with both [facility] programs, however it appears that it does [...] bath today, OK to shower. HENOK GUO [facility] documented in this en counter Plan of Treatment Not on filedocumented as of this encounter Visit Diagnoses + + | Diagnosis | + + | CRPS (complex regional pain syndrome), lower limb - Primary Causalgia of lower limb | + + documented in this encounter
--- OUTSIDE RECORDS SUMMARY | ~2020-06-23 | XMS | Encounter Summary ---
Demographics + + + | Address | [address] | | | [place] [address] | + + + | Home Phone [...] Team Providers + +------+ + | Care Stonemason Helper Name | Role | Phone | + +------+ + | Justo Vazquez MD | PCP | | + +------+ + Encounter Details +--------+ + + + + | Date | Type | Department | Care Team | Description | +--------+ + + + + | 01/31/ | Documentati | Vascular Access at | [place], | | | 2017 | on | [facility] [address] | Maru RN [address] | | | | | [address] | [address] | | | | | [facility] | [place], [place] | | | | | [place] | [address] | | | | | [address] | | | | | | [phone] | | | +--------+ + + + [...]
--- OUTSIDE RECORDS SUMMARY | ~2020-06-23 | XMS | Encounter Summary ---
Demographics + + + | Address | [address] | | | [place] [address] | + + + | Home Phone [...] Team Providers + +------+ + | Care Retort Furnace Helper Name | Role | Phone | + +------+ + | Justo Vazquez MD | PCP | | + +------+ + Encounter Details +--------+ + + + + | Date | Type | Department | Care Team | Description | +--------+ + + + + | 01/09/ | Documentati | Orthopaedics | Ranjeet Amanda, | | | 2018 | on | Faculty at [facility] | [address] | | | | | for Health and | [place], [place] | | | | | Healing [address] | [address] | | | | | Ave [facility] for | [phone] | | | | | Health and Healing, | | | | | | | | | | | | Floor [facility] [place] | | | | | | [address] | | | | | | [phone] | | | +--------+ + + + [...]
--- OUTSIDE RECORDS SUMMARY | ~2020-06-23 | XMS | Encounter Summary ---
Demographics + + + | Address | [address] | | | [place] [address] | + + + | Home Phone [...] Team Providers + +------+ + | Care Process Development Associate Name | Role | Phone | [...] Oliveira | | 2011 | IP | [address] | | House - Approved | | | | Giuliana Maldonado [place], | | | | | | [place] [address] | | | +--------+ + + + [...]
--- OUTSIDE RECORDS SUMMARY | ~2020-06-23 | XMS | Encounter Summary ---
Demographics + + + | Address | [address] | | | [place] [address] | + + + | Home Phone [...] Team Providers + +------+ + | Care Child Protection Specialist Name | Role | Phone | [...] | Procedures | [place] | [address] [facility], | | | | | CONSULT TO | [address] | [place] | | | | | PAIN | | [address] | | | | | MANAGEMENT | | Phone: | | | | | | | [phone] | | | | | | | Fax: | | | | | | | [phone] | +--------+--------+ + + + + Encounter Details +--------+---------+ + + + | Date | Type | Department | Care Team | Description | +--------+---------+ + + + | 04/23/ | Office | Pain Center at [facility] | Alex Sanchez, | Complex regional | | 2019 | Visit | [address] | ,PhD [address] [facility] | pain syndrome type 1 | | | | [facility] | [facility] [address] | of left lower | | | | and Healing, | [place], [place] | extremity (Primary | | | | Building | [address] | Dx); Other chronic | | | | Floor [place], [place] | [phone] | pain ; S/P insertion | | | | [address] | | of spinal cord | | | | [phone] | | stimulator | +--------+---------+ + + [...] this encounter Patient Instructions Patient Instructions Sonia eKy - 04/23/2019 1:00 PM PDTKelly, Thank you for taking the time to see us in the [facility]. It was great to s ee you. Below is a summary of the discussion that we had today: - I will provide you with a prescription for oxycodone to use only for your monthly pain fl garo. - We reviewed and signed an opioid agreement today. - Please visit the lab on the 1st floor of [facility] to provide a urine sample for [...] fox in our notes. Alex Sanchez MD,PhD [facility]ronically signed by Alex Sanchez MD,PhD at [...] Aleta Lam MD - 1:00 PM PDT [facility] Return Visit Date: 04/23/2019 Chief Complaint Patient presents with Pain in left leg from the knee downl Back pain where battery pack is located History of Present Illness: Tracie Farah is a 28 year old female, whose last appoi ntment at the [facility] was December 22, 2018, for [...] leg pain due to the boone that [facility] has in place. She [...] - DRG Spinal cord stimulator trial with [employer] system (09/25/2018) with 30-40% im provement of typical pain with significant improvement in mobility and function - Left popliteal/sciatic nerve injection AND abdominal scar trigger point injection ( 018) - Spinal cord stimulator trial with [employer] system by Janak Riojas MD (08/02/2012) - Left L3 lumbar sympathetic block by Janak Riojas MD (03/01/2012) Opioid Risk Tool (ORT) 04/23/2019 [facility] Brief Pain Inventory: (ten= worst [...] Hemroidectomy Trial spinal cord stimulator leads 08/02/2012 [employer], Surgeon: Janak Riojas MD Cholecystectomy Appendectomy Other [...] History Social History Narrative Single. Goes to [employer] with a light load. Has been working at [employer], can' t work on [employer]. Has roommates. Allergies Allergen Reactions Morphine [...] GRAM-5.86 GRAM SOLUTION Take as directed by [facility] Digestive Health- 2 gallon bowel [...] with nausea Abdominal pain Abdominal scar neuroma [facility] CLINICAL PROTOCOL PATIENT (CLNPRO) - [...] and summary of old medical records (source: [employer]), as summarized in the body of the [...] We performed DRG SCS trial with the [employer] System on 09/25/2018 which provided her with [...] ago. She has not spoken with the [employer] representatives about this. I encouraged her to [...] Key. Aleta Rebollar MD PAIN CENTER AT [facility] 15TH FLOOR [address] [facility] Mail Code: [address] [place] [id number] do cumented in this encounter Plan of [...] + + + + + | [facility] | [address] | [place] [address] | | | SERVICES, CORE | GUILLERMO [...]
--- OUTSIDE RECORDS SUMMARY | ~2020-06-23 | XMS | Encounter Summary ---
Demographics + + + | Address | [address] | | | [place] [address] | + + + | Home Phone [...] Phone | + + +---------+ + | aPtricia Colin | ECON | Unknown | | + + +---------+ + Care Team Providers + +------+ + | Care Drawing Box Tender Name | Role | Phone | + +------+ + | Justo Vazquez MD | PCP | | + +------+ + Encounter Details +--------+ + + + + | Date | Type | Department | Care Team | Description | +--------+ + + + + | 05/18/ | Telephone | [facility] | Alex Sanchez, | | | 2019 | | Pain Center at | ,PhD [address] | | | | | [facility] | [address] | | | | | [address] | [place], [place] | | | | | [place] [facility] | [address] | | | | | and Healing, | [phone] | | | | | | | | | | | Floor [place], [place] | | | | | | [address] | | | | | | [phone] | | | +--------+ + + + [...]
--- OUTSIDE RECORDS SUMMARY | ~2020-06-23 | XMS | Encounter Summary ---
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 | FAMILY | Mailstop | | | | | of lower | MEDICINE P | [address] | | | | | limb | [address] | [place], [place] | | | | | | [place], | [address] | | | | | | [place] [address] | Phone: | | | | | | Phone: | [phone] | | | | | | [phone] | Fax: | | | | | | Fax: | [phone] | | | | | | [phone] | | +--------+--------+ + + + + Encounter Details +--------+---------+ + + + | Date | Type | Department | Care Team | Description | +--------+---------+ + + + | 03/17/ | Office | [facility] | Dale Cantu, | CRPS (complex | | 2011 | Visit | Pain Center at | [address] | regional pain | | | | [place] | [address] [place] [address] | syndrome), lower | | | | [address] | [place], [place] | limb; Adjustment | | | | [place] for [facility] | [address] | reaction; Muscle | | | | and Healing, | [phone] | pain; Gait | | | | [facility] | | disturbance | | | | Floor [place], [place] | | | | | | [address] | | | | | | [phone] | | | +--------+---------+ + + + [...] Pain: After Your Visit", log into your [employer] nt at [email or web address] Source. You can enter G828 in the Prof[employer]k Library" search box. Not on TraNet'tet? Review the MyChart section of your After Visit Summary for directions on liz rea to sign up. [phone] [employer]GETMi / ?.??. Care instructions adapted under license by Count includes the [facility]. This care instruction is for use with your licensed healthcar e professional. If you have questions about a medical condition or this instruction, always ask your healthcare professional. [employer]GETMi / ?.?? disclaims any warranty or liabili ty for your use of this information. Content Version: 9.2.279845; Last Revised: April 29, 2011 Nortriptyline for [...] Pain: After Your Visit", log into your [employer] nt at [email or web address] Source. You can enter G828 in the [employer]" search box. Not on farmhopping? Review the Dealisedhart section of your After Visit Summary for directions on ho w to sign up. [phone] GOGETMi / ?.??. Care instructions adapted under license by Count includes the [facility] & [facility] [place]. This care instruction is for use with your licensed healthcar e professional. If you have questions about a medical condition or this instruction, always ask your healthcare professional. GOGETMi / ?.?? disclaims any warranty or liabili ty for your use of this information. Content Version: 9.2.215071; Last Revised: April 29, 2011 documented in [...] documented in our notes. DALE CANTU MD Log Clerk, [facility] Crtt, Pain Medicine Professor, Anesthesiology & Perioperative Medicine NAMollMarquis manriquez MD - 03/17/2012 3:42 PM PDT [facility] Pain Center Return Visit with [...] her pain. She continues to take 6-8 [place] per day and 600 mg of ibuprofen [...] also had her first consu ltation with Guilelrmo Sanon She has been treated at the [...] a pain drawing which I reviewed. [facility] Brief Pain Inventory: (ten= worst possible [...] The Review of Systems obtained by the [facility] was reviewed. Additional Review of Systems: [...] you require any medication refills today? no SALES REPRESENTATIVE SUPERVISOR ROS: 1. Bones, Joints, and Muscles: cramps [...]
--- OUTSIDE RECORDS SUMMARY | ~2020-06-23 | XMS | Encounter Summary ---
Demographics + + + | Address | [address] | | | [place] [address] | + + + | Home Phone [...] Team Providers + +------+ + | Care Chief Controller Center Name | Role | Phone | + [...] | | | | | Ave Mailcode: [facility] | [place], [place] | | | | | [facility] | [address] | | | | | Health and Healing, | [phone] | | | | | [place] [address] | | | | | | [place], [place] | | | | | | [address] | | | | | | [phone] | | | +--------+ + + + [...] Discharge Instructions Instructions Darlin Doyle RN - 12/14/2016[place] Care Instructions after Colonoscopy You may resume [...] on weekends and holidays call the Hospital Pediatric Associate toll free [phone]- [phone] Ext. [phone] or and have the GI doctor balloon tester paged. The provider who performed your procedure [...] Farah is a 26 y.o. female MR# [id number] presents today for colonoscopy NPO since midnight [...]
--- OUTSIDE RECORDS SUMMARY | ~2020-06-23 | XMS | Encounter Summary ---
Demographics + + + | Address | [address] | | | [place] [address] | + + + | Home Phone [...] Team Providers + +------+ + | Care Well Site Drilling Engineer Name | Role | Phone | [...] | | syndrome | [address] | [facility] | | | | | type 1 of | Rd | Rd [place], | | | | | left lower | [place], [place] | [place] | | | | | extremity | [address] | [address] | | | | | Procedures | Phone: | Phone: | | | | | REQUEST TO | [phone] | [phone] | | | | | SURGERY | Fax: | Fax: | | | | | BROOMMAKER | [phone] | [phone] | +--------+---------+ + + + + Encounter Details +--------+ + + + + | Date | Type | Department | Care Team | Description | +--------+ + + + + | 12/ | Procedure | [facility] at [facility] | Alex Sanchez, | Foot pain; Knee | | 2018 | | [address] | ,PhD [address] | pain; Procedure | | | | [facility] | [facility] | | | | | and Healing, | [place], [place] | | | | | | [address] | | | | | Floor [place], [place] | [phone] | | | | | [address] | | | | | | [phone] | | | +--------+ + + + [...] Patient Instructions Patient Instructions Sonia Key - 09/25/2018 1:00 PM PST [facility] Patient Instructions - Post Interventional Procedure Date: 09/25/2018 Name: Tracie Farah Date of : 1990 Procedure Performed: SCS DRG TRIAL LUMBAR [facility] Procedure Provider: Alex Sanchez MD,PhD If you have any problems you believe are associated with your procedure tonight, Please call the Hospital Marketing Content Coordinator, and ask for the Pain Management Consu ltant. If you have problems or questions between 9:00 am and 4:00 pm, Please call the [facility] Nurse Triage Line, . If you [...] symptoms, dressing, SCS function, or chills. During FERRY HAND open ho urs, call the [facility] ([phone]), after hours call the hydrogen operator at [facility] ([phone]) and ask for the Adult Pain Service photocomposition keyboard operator. Identify yourself as a Comprehensive Pain [...] to the pat ient. Aleta Rebollar MD [facility] Comprehensive Pain Center Godpfvliclzwin signed by Sonia Key at 09/25/2018 3:07 PM PST documented in this encounter Progress Notes Alex Sanchez MD,PhD - 09/25/2018 1:00 PM PSTI was present for the entire procedure ( DRG SCS trial) and all bocanegra elements of this visit. I reviewed the documentation of the othe r [facility] providers and concur with Dr. Rebollar's findings. I edited his note. Alex aSnchez MD,PhD Bog Worker Anesthesiology and Pain Management [facility] [place] onacZain bonner RN - 09/25/2018 1:00 PM PSTFormatting of [...] 36.2 C (97.1 F) TempSrc: Oral Resp: SpO2: 100% 100% 99% PainSc: 07 - [...] by physician. Concentration is 150mg/mL. Compounded by [employer] ) KETOROLAC IM Inject into the muscle [...] GRAM-5.86 GRAM SOLUTION Take as directed by [facility] Digestive [facility]- 2 gallon bowel prep POLYETHYLENE GLYCOL [...] PRE-SEDATION: Date: September 25, 2018 Tracie Farah [id number] 1990 ALLERGIES: Morphine Previous reaction to Sedation/Analgesia: [...] NOTES: Date: September 25, 2018 Tracie Donaldson [facility] [id number] 1990 ALLERGIES: Morphine Previous reaction to Sedation/Analgesia: [...] VS: See Sedation Flow Sheet. Tracie Donaldson [facility] [id number] 1990, presents to clinic for: Procedure: bilateral [...] OPERATIVE NOTE Date: September 25, 2018 Location: [facility] Procedure Room Tracie Donaldson [facility] [id number] :1990, presents to clinic for: PROCEDURE: DRG Spinal Cord Stimuation Trial with [employer] system LEVEL/LATERALITY: left L4, L5 PRE-OPERATIVE DIAGNOSIS: G90.522 Complex regional pain syndrome type 1 of left lower extremity POST-OPERATIVE DIAGNOSIS: G90.522 Complex regional pain syndrome type 1 of left lower extremity ATTENDING PHYSICIAN: Alex Sanchez MD,PhD ATTRACTIONS ASSOCIATE: Fellow Aleta Rebollar ANESTHESIA: Sedation delivered by [...] sedation. Ms. Farah was escorted to the [facility] Procedure R oom, where she was [...] patient. Ms. Farah was transported to the [facility] [place] post-procedure recovery area where she made an uneventful recovery. Programming was performed in the PACU with aid of the device franchise sales representative and Ms. Susie faust was sent home with a few programs . This was a unilateral procedure. Alex Sanchez MD,PhD was present for the entire procedure. Images were saved, and sent to [employer]Git. Ms. Farah was transported to the [facility] [place] post-procedure recovery area. She had an uneventful recovery. Before the procedure, Ms. Farah's pain was 7/10. After the procedure Ms. Farah's pain was 7/10. I, Sonia Key, am functioning as a scribe for Aleta Rebollar MD. I have reviewed and verified the above scribed note of my visit with this patient as record ed by Sonia Key. Aleta Rebollar MD [facility] 15TH FLOOR [address] [facility] Mail Code: [address] [address] documented in t his encounter Plan of Treatment Not on filedocumented as of this encounter Procedures + +--------+ + + + | Procedure Name | Priori | Date/Time | Associated Diagnosis | Comments | | | ty | | | | + +--------+ + + + | NV MOD SEDATION | Routin | 09/25/2018 | Complex regional | | | >=5YRS SAME MD/QUAL | e | 7:31 PM | pain syndrome type 1 | | | PROV; INIT 15 MIN | | PST | of left lower | | | | | | extremity | | + +--------+ + + + | NV PERCUT IMPLNT | Routin | 09/25/2018 | [...]
--- OUTSIDE RECORDS SUMMARY | ~2020-06-23 | XMS | Encounter Summary ---
Demographics + + + | Address | [address] | | | [place] [address] | + + + | Home Phone [...] Providers + +------+ + | Care Manager Monitoring Name | Role | Phone | + [...] | Orthopedics | Diagnoses | [place], | [place], | | | | | Complex | [place], | Ranjeet Odom MD | | | | | regional | ,PhD [address] | [address] | | | | | pain | [address] | Ave | | | | | syndrome | [address] | [place], [place] | | | | | type 1 of | Rd | [address] | | | | | left lower | [place], [place] | Phone: | | | | | extremity | [address] | [phone] | | | | | Procedures | Phone: | Fax: | | | | | CONSULT TO | [phone] | [phone] | | | | | ORTHOPEDICS | Fax: | | | | | | AND | [phone] | | | | | | REHABILITATI [...] | ankle results) | | | | [facility] | [facility] [address] | | | | | [address] | [place], [place] | | | | | [facility] | [address] | | | | | and Healing, | [phone] | | | | | | | | | | | Floor [place], [place] | | | | | | [address] | | | | | | [phone] | | | +--------+ + + + [...]
--- OUTSIDE RECORDS SUMMARY | ~2020-06-23 | XMS | Encounter Summary ---
Demographics + + + | Address | [address] | | | [place] [address] | + + + | Home Phone [...] Team Providers + +------+ + | Care Caponizer Name | Role | Phone | + +------+ + | Justo Vazquez MD | PCP | | + +------+ + Encounter Details +--------+ + + + + | Date | Type | Department | Care Team | Description | +--------+ + + + + | 09/25/ | Pharmacy | [facility] | | | | 2018 | Visit | & [facility]acy | | | | | | [address] | | | | | | Mailcode: [place] | | | | | | [facility] and | | | | | | Healing, [address] | | | | | | [place], [place] | | | | | | [address] | | | | | | [phone] | | | +--------+ + + + [...]
--- OUTSIDE RECORDS SUMMARY | ~2020-06-23 | XMS | Encounter Summary ---
Demographics + + + | Address | [address] | | | [place] [address] | + + + | Home Phone [...] Team Providers + +------+ + | Care Bath Design Sales Consultant Name | Role | Phone | + +------+ + | Justo Vazquez MD | PCP | | + +------+ + Encounter Details +--------+ + + + + | Date | Type | Department | Care Team | Description | +--------+ + + + + | 08/07/ | Telephone | [facility] | Alex Sanchez, | | | 2019 | | Pain Center at | ,PhD [address] | | | | | [facility] | [address] | | | | | [address] | [place], [place] | | | | | [place] for [facility] | [address] | | | | | and Healing, | [phone] | | | | | | | | | | | Floor [place], [place] | | | | | | [address] | | | | | | [phone] | | | +--------+ + + + [...]
--- OUTSIDE RECORDS SUMMARY | ~2020-06-23 | XMS | Encounter Summary ---
Demographics + + + | Address | [address] | | | [place] [address] | + + + | Home Phone [...] Team Providers + +------+ + | Care Post Doctoral Fellow Name | Role | Phone | + [...] | | 2017 | | Center at [facility] [address] | | Review | | | | [facility] | | | | | | for Health and | | | | | | [facility] [address] | | | | | | [place], [place] | | | | | | [address] | | | | | | [phone] | | | +--------+ + + + [...]
--- OUTSIDE RECORDS SUMMARY | ~2020-06-23 | XMS | Encounter Summary ---
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 | FAMILY | [address] | | | | | of lower | MEDICINE P | [id number] | | | | | limb | [address] | [place], [place] | | | | | | [place], | [address] | | | | | | [place] [address] | Phone: | | | | | | Phone: | [phone] | | | | | | [phone] | Fax: | | | | | | Fax: | [phone] | | | | | | [phone] | | +--------+--------+ + + + + Encounter Details +--------+---------+ + + + | Date | Type | Department | Care Team | Description | +--------+---------+ + + + | 08/04/ | Office | [facility] | Dale Cantu, | CRPS (complex | | 2011 | Visit | Pain Center at | MD 1956 [facility] | regional pain | | | | [facility] | [facility] [address]275 | syndrome), lower | | | | [address] | [place], [place] | limb (Primary Dx) | | | | [place] [facility] | [address] | | | | | and Healing, | [phone] | | | | | Building | | | | | | Floor [place], [place] | | | | | | [address] | | | | | | [phone] | | | +--------+---------+ + + + [...] evaluated the patient with Fellow Nhan Guo [facility], who conducted the initial history. I reviewed the history in det ail and edited his note. I was present for the examination and formulation portions of the encounter. I agree with the findings and the plan of care as documented in our notes. DALE CANTU MD Energy Assistant, [facility] Copy Center Operator, Pain Medicine Professor, Anesthesiology & Perioperative [...] physical activity and social withdrawal enok Gutierrez, [facility] - 08/04/2012 7:25 AM PDTFormatting of this note might be different from the origi nal. [facility] Pain Center Return Visit [...] has been treated at the [facility] for lower limb pain with [...] and a pain drawing which I reviewed. [facility] Brief Pain Inventory: (ten= worst [...] The Review of Systems obtained by the [facility] was reviewed. Additional Review of Systems: 1. [...] multiple programs with both [facility] programs, however it appears that it [...] bath today, OK to shower. HENOK GUO [facility] documented in this en counter Plan of Treatment Not on filedocumented as of this encounter Visit Diagnoses + + | Diagnosis | + + | CRPS (complex regional pain syndrome), lower limb - Primary Causalgia of lower limb | + + documented in this encounter
--- OUTSIDE RECORDS SUMMARY | ~2020-06-23 | XMS | Encounter Summary ---
Demographics + + + | Address | [address] | | | [place] [address] [...] Team Providers + +------+ + | Care Sieve Maker Name | Role | Phone | [...] | | Pain | Complex | Ilene, SOLDERER ASSEMBLER | Hanna M, | | | | Management | regional | [address] | PS[address] D [address] | | | | | pain | [address] | [address] | | | | | syndrome | [place], [place] | [place], [place] | | | | | type 1 of | [address] | [address] Phone: | | | | | left lower | Phone: | [phone] | | | | | extremity | [phone] | Fax: | | | | | Intractable | Fax: | [phone] | | | | | cyclical | [phone] | | | | | | vomiting [...] | | | | | | [place] | | | | | | | PSYCHIATRIC | | | | | | | DIAGNOSTIC | | | | | | | EVAL, NO MED | | | | | | | [facility] [place] | | | | | | | PSYCH TSTNG | | | | | | | PSYCH/PHYS | | | | | | | [place] | | | | | | | [...] Pain Medicine | Diagnoses | Chasity, | Exercise Rider Chh1 | | | | / Pain | Abdominal | MD Kenny | [address] | | | | Management | pain, | [address] [facility] | [facility] | | | | | unspecified | [facility] | for Health | | | | | location | Rd | and Healing, | | | | | Procedures | [place], [place] | [facility] | | | | | CONSULT TO | [address] | 1,15th Floor | | | | | PAIN | | [facility] [place] | | | | | MANAGEMENT | | [address] | | | | | | | Phone: | | | | | | | [phone] | | | | | | | Fax: | | | | | | | [phone] | +--------+--------+ + + + + Encounter Details +--------+---------+ + + + | Date | Type | Department | Care Team | Description | +--------+---------+ + + + | 04/25/ | Office | [facility] | Ilene Bright, | Abdominal pain, | | 2017 | Visit | Pain Center at | SOLDERER ASSEMBLER [address] | unspecified location | | | | [facility] | [place], [place] | (Primary Dx); | | | | [address] | [address] | Complex regional | | | | [place] [facility] | [phone] | pain syndrome type 1 | | | | and Healing, | | of left lower | | | | Building 1,15 | | extremity; | | | | Floor [place], [place] | | Intractable cyclical | | | | [address] | | vomiting with | | | | [phone] | | nausea; | | | | [...] encounter Patient Instructions Patient Instructions Ilene Bright, SOLDERER ASSEMBLER - 04/25/2017 1:35 PM PDTKelly, Nice to [...] Freddie Guadalupe MD [email or web address] Ilene Childs DNP, SOLDERER ASSEMBLER-C Adult Pain Service /[facility] [address] [place] [address] documented in this encounter Progress Notes Ilene Bright FNP - 04/25/2017 1:35 PM PDTFormatting of this note might be different fr om the original. Date: 04/25/2017 was referred for pain management consultation by Kenny Gaspar MD [address] [place] [address] Reason for consult: abdominal pain Chief Complaint Patient presents with Abdominal pain Back pain History of Present Illness: Tracie Farah is a 26 year old female with a history of depression, complex regional pain syndrome (left lower extremity) for this she follows with a neurologist at [facility] in [facility]. She has been stable on her current [...] effective treatments include: medication (toradol). lives in [place], [place] alone and with her children. She receives disability. does not have specific goals for today's appointment. [facility] QUESTIONNAIRE BRIEF PAIN 04/24/2017 Please rate [...] has interfered with your sleep : 8 [facility] New Patient Questionnaire Responses 04/24/2017 What [...] or to get rid of a hangover (eye-learning coordinator)? No Do you drink alcohol to decrease [...] Hemroidectomy Trial spinal cord stimulator leads 08/02/2012 [facility], Surgeon: Janak Riojas MD Cholecystectomy [...] History Social History Narrative Single. Goes to [employer] with a light load. Has been working at [employer], can' t work on [employer]. Has roommates. Allergies Allergen Reactions Morphine Anaphylaxis [...] by physician. Concentration is 150mg/mL. Compounded by [facility] ) LAMOTRIGINE 200 MG TABLET Take [...] GRAM-5.86 GRAM SOLUTION Take as directed by [facility]- 2 gallon bowel prep POLYETHYLENE GLYCOL 3350 17 GRAM/DOSE ORAL POWDER Take 17 g by mouth once daily. PROMETHAZINE 12.5 MG TABLET Take 12.5 mg by mouth four times daily as needed for nausea/vom iting. SUCRALFATE 1 GRAM TABLET Take 1 g by mouth four times daily. Radiology/Diagnostic Tests: MR ENTEROGRAPHY ABDOMEN AND PELVIS WWO CONTRAST Order: [id number] Performed: 01/31/2017 4:34 PM Status: Final result [...] 3:50 PM X-RAY ABDOMEN 1 VIEW Order: [id number] Performed: 03/19/2017 6:52 AM Status: Final result [...] and summary of old medical records (source: [email or web address]), as summarized in the body of the [...] possible opioid-sparing effects (Stevie Paulino et al.C [employer], (8):1655-70, 2007) and evidence that it can [...] TERESA-C Adult Pain Service /[facility] [address] [place] [address] Display Progress Note in MyChart: No documented [...]
--- OUTSIDE RECORDS SUMMARY | ~2020-06-23 | XMS | Encounter Summary ---
Demographics + + + | Address | [address] | | | [place] [address] | + + + | Home Phone [...] Team Providers + +------+ + | Care Low Voltage Technician Name | Role | Phone | [...] | | | [address] | [facility] | | | | | [place], [place] | [place], [place] | | | | | [address] | [address] | | | | | | [phone] | | | | | | | [...] | + +--------+ + + + | BUSINESS OFFICE REPRESENTATIVE MISC PROCEDURE | Routin | 12/27/2017 | Complex regional | Results for this | | | e | 3:28 PM | pain syndrome type 1 | procedure are in the | | | | PST | of left lower | results section. | | | | | extremity | | + +--------+ + + + documented in this encounter Results [facility] MISC PROCEDURE (12/27/2017 3:28 PM PST) [...]
--- OUTSIDE RECORDS SUMMARY | ~2020-06-23 | XMS | Encounter Summary ---
Demographics + + + | Address | [address] | | | [place] [address] | + + + | Home Phone [...] Team Providers + +------+ + | Care Reservoir Engineering Manager Name | Role | Phone | + +------+ + | Justo Vazquez MD | PCP | | + +------+ + Encounter Details +--------+ + + + + | Date | Type | Department | Care Team | Description | +--------+ + + + + | 04/23/ | Anesthesia | Pain Center at [facility] | Aleta Rebollar MD [address] | | | 2019 | Event | [address] | [address] | | | | | [place] [facility] | [place], [place] | | | | | and Healing, | [address] | | | | | | [phone] | | | | | Floor [place], [place] | | | | | | [address] | | | | | | [phone] | | | +--------+ + + + [...]
--- OUTSIDE RECORDS SUMMARY | ~2020-06-23 | XMS | Encounter Summary ---
Demographics + + + | Address | [address] | | | [place] [address] | + + + | Home Phone [...] Team Providers + +------+ + | Care Diabetes Manager Name | Role | Phone | + +------+ + | Justo Vazquez MD | PCP | | + +------+ + Encounter Details +--------+ + + + + | Date | Type | Department | Care Team | Description | +--------+ + + + + | 12/05/ | Pharmacy | [facility] | | | | 2019 | Visit | & [facility]aling Pharmacy | | | | | | [address] | | | | | | Mailcode: [place] | | | | | | [facility] Health and | | | | | | Healing, [address] | | | | | | [place], [place] | | | | | | [address] | | | | | | [phone] | | | +--------+ + + + [...]
--- OUTSIDE RECORDS SUMMARY | ~2020-06-23 | XMS | Encounter Summary ---
Demographics + + + | Address | [address] | | | [place] [address] | + + + | Home Phone [...] Providers + +------+ + | Care Supervisor Motorcycle Repair Shop Name | Role | Phone | + [...] Oliveira | | 2011 | IP | [address] | | House - Approved | | | | [place], | | | | | | [place] [address] | | | +--------+ + + + [...]
--- OUTSIDE RECORDS SUMMARY | ~2020-06-23 | XMS | Encounter Summary ---
Demographics + + + | Address | [address] | | | [place] [address] | + + + | Home Phone [...] Team Providers + +------+ + | Care Treating Plant Supervisor Name | Role | Phone [...] | Pain Center at | ,PhD [address] [facility] | sig) | | | | [facility] | [address] | | | | | [address] | [place], [place] | | | | | [facility] | [address] | | | | | and [place], | [phone] | | | | | [facility] | | | | | | Floor [place], [place] | | | | | | [address] | | | | | | [phone] | | | +--------+ + + + [...]
--- OUTSIDE RECORDS SUMMARY | ~2020-06-23 | XMS | Encounter Summary ---
Demographics + + + | Address | [address] | | | [place] [address] | + + + | Home Phone [...] Team Providers + +------+ + | Care Grab Hooker Name | Role | Phone | [...] | | | regional | [place] | [address] | | | | | pain | FAMILY | [address] | | | | | syndrome), | MEDICINE P | [id number] | | | | | lower limb | [address] | [place], [place] | | | | | Pain in | [place], | [address] | | | | | joint, lower | [place] [address] | Phone: | | | | | leg | Phone: | [phone] | | | | | Procedures | [phone] | Fax: | | | | | REQUEST TO | Fax: | [phone] | | | | | SURGERY | [phone] | | | | | | INVESTMENT ACCOUNTANT | | | +--------+--------+ + + + [...] | | | 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 | FAMILY | [address] | | | | | of lower | MEDICINE P | [address] | | | | | limb | [address] | [place], [place] | | | | | | [place], | [address] | | | | | | [place] [address] | Phone: | | | | | | Phone: | [phone] | | | | | | [phone] | Fax: | | | | | | Fax: | [phone] | | | | | | [phone] | | +--------+--------+ + + + + Encounter Details +--------+---------+ + + + | Date | Type | Department | Care Team | Description | +--------+---------+ + + + | 06/06/ | Office | [facility] Comprehensive | Dale Cantu, | CRPS (complex | | 2011 | Visit | Pain Center at | MD [address] [facility] | regional pain | | | | [facility] | [facility] [address] | syndrome), lower | | | | [address] | [place], [place] | limb; Pain in joint, | | | | Center for Health | [address] | lower leg | | | | and Healing, | [phone] | | | | | | | | | | | Floor [place], [place] | | | | | | [address] | | | | | | [phone] | | | +--------+---------+ + + + [...] Dale Cantu MD - 06/06/2012 11:49 [facility] Pre-Procedure Instructions: The procedure you discussed with your doctor is called: SCS TRIAL LUMBAR [facility]. Please make sure this is scheduled with the Image Consultant. Please bring a warehouse associate driver with you. We may give you medications that make you drowsy or otherw ise unsafe to drive. If you do not have a warehouse associate driver, we will not be able to do your procedure. DO NOT EAT ANYTHING AFTER MIDNIGHT If your appointment is after 1 PM , you may have a very light, low fat breakfast, such as h group home a piece of dry toast or a [...] PLEASE CONTACT THE COMPREHENSIVE PAIN CENTER AT [phone] ([phone]) FOR QUESTIONS OR IF YOU NEED TO CANCEL YOUR APPOINTMENT. [facility] Comprehensive Pain Center documented in this [...] not signed. Given information. DALE CANTU MD Security System Engineer, [facility] Wide Area Network Engineer, Pain Medicine Professor, Anesthesiology & Perioperative Medicine ollHomer manriquez MD - 06/06/2012 11:17 AM PDT [facility] Comprehensive Pain Center Return Visit with [...] and a pain drawing which I reviewed. LODGE OFFICER Brief Pain Inventory: (ten= worst possible [...] The Review of Systems obtained by the APPLIANCE ASSEMBLER was reviewed. Additional Review of Systems: Bones, [...] with Dr. Dale Cantu at the [facility] today for left foot CRPS which began [...] [facility] Pain Ripton Evelia Parsons - 11:07 AM PDTCMA History: [...]
--- OUTSIDE RECORDS SUMMARY | ~2020-06-23 | XMS | Encounter Summary ---
Demographics + + + | Address | [address] | | | [place] [address] | + + + | Home Phone [...] Providers + +------+ + | Care Biological Technical Officer Name | Role | Phone | [...] | | Complex | Alex Alba, | [facility] [address] | | | | | regional | ,PhD [address] | Pavilion | | | | | pain | [address] | [address] | | | | | syndrome | [address] | [address], | | | | | type 1 of | Rd | Basement | | | | | left lower | [place], [place] | [place], [place] | | | | | extremity | [address] | [address] | | | | | Muscle pain | Phone: | Phone: | | | | | Procedures | [phone] | [phone] | | | | | NM BONE | Fax: | Fax: | | | | | &/OR JOINT | [phone] | [phone] | | | | | IMAGING | [...] | | | | | | | MD BONE | | | | | | | IMAGING, | | | | | | | LIMITED AREA | | | | | | | MD BONE | | | | | | [...] | | 2018 | Encounter | at [facility] [address] | ,PhD [address] [facility] | | | | | [address] | [address] | | | | | [address], | [place], [place] | | | | | [facility], | [address] | | | | | [place] [address] | [phone] | | | | | [phone] | | | +--------+ + + + [...]
--- OUTSIDE RECORDS SUMMARY | ~2020-06-23 | XMS | Encounter Summary ---
Demographics + + + | Address | [address] | | | [place] [address] | + + + | Home Phone [...] Team Providers + +------+ + | Care Teacher Instrumental Name | Role | Phone | + [...] Kenny Gaspar MD | Vomiting; | | 2016 | | Center [place] [address] [address] | | Constipation; | | | | [address] [place] | | Abdominal pain | | | | for Health and | | | | | | Healing, [address] | | | | | | [place], [place] | | | | | | [address] | | | | | | [phone] | | | +--------+ + + + [...]
--- OUTSIDE RECORDS SUMMARY | ~2020-06-23 | XMS | Encounter Summary ---
Demographics + + + | Address | [address] | | | [place] [address] | + + + | Home Phone [...] Team Providers + +------+ + | Care Geodesist Name | Role | Phone | + [...] 2019 | | Pain Center at | ONCOLOGY REGISTRAR [address] | | | | | [facility] | [place], [place] | | | | | [address] | [address] | | | | | [place] for [facility] | [phone] | | | | | and Healing, | | | | | | | | | | | | Floor [place], [place] | | | | | | [address] | | | | | | [phone] | | | +--------+ + + + [...]
--- OUTSIDE RECORDS SUMMARY | ~2020-06-23 | XMS | Encounter Summary ---
Demographics + + + | Address | [address] | | | [place] [address] | + + + | Home Phone [...] Team Providers + +------+ + | Care Wire Turning Machine Operator Name | Role | Phone [...] | | | | | extremity | [address] | [address] | | | | | Muscle pain | Phone: | Phone: | | | | | Procedures | [phone] | [phone] | | | | | REQUEST TO | Fax: | Fax: | | | | | SURGERY | [phone] | [phone] | | | | | BRASS MOLDER HELPER | | | | | | | AR INJ,ANES | | | | | | | AGENT,SCIATI | | | | | | | C | | | | | | | NERVE,SINGLE | | | | | | | AR INJECT | | | | | | | NERV | | | | | | | BLCK,OTHR | | | | | | | PERIPH NERV | | | | | | | AR SONO | | | | | | | GUIDE FOR | | | | | | | NEEDLE | | | | | | | PLACEMENT | | | | | | | AR MOD | | | | | | | SEDATION | | | | | | | >=5YRS SAME | | | | | | | MD/QUAL | | | | | | | PROV; INIT | | | | | | | 15 MIN AR | | | | | | [...] 12/27/ | Procedure | Pain Center at [facility] | Alex Sanchez, | Pain in left leg; | | 2017 | | [address] | ,PhD [address] | Procedure | | | | Center for Health | [facility] | | | | | and Healing, | [place], [place] | | | | | [facility] | [address] | | | | | [place], [place] | [phone] | | | | | [address] | | | | | | [phone] | | | +--------+ + + + [...] note mi nayelit be [facility] Instructions - Post Interventional Procedure Date: 12/27/2017 Name: Tracie Farah Date of : 1990 Procedure Performed: trigger point injection and popliteal/sciatic block. Procedure Provider: Alex Sanchez MD,PhD If you have any problems you believe are associated with your procedure tonight, Please call the Hospital Prep Cook, and ask for the Pain Management Consu [...] paper. Please fax the pain diary to [phone] or attach a scanned image of it to a Tealet message to your doct or.. The area [...] to the larry ent. David Linares MD [facility] Pain Center documented in this encounter Progress Notes Alex Sanchez MD,PhD - 12/27/2017 3:00 PM PSTI was present for the entire procedure ( popliteal nerve block and abdominal scar neuroma injection) and all bocanegra elements of this vis it. I reviewed the documentation of the other TELEGRAPHER AGENT providers and concur with Dr. Linares's findings. I edited his note. Alex Sanchez MD,PhD Development System Efficiency Manager Anesthesiology and Pain Management [facility] David Pennington MD - 12/27/2017 3:00 PM PSTPROVIDER OPERATIVE NOTE Date: December 27, 2017 Location: [facility] Procedure Room Tracie Farah [id number] :1990, presents to clinic for: PROCEDURE: Popliteal/sciatic [...] scar neuroma ATTENDING PHYSICIAN: Alex Sanchez MD,PhD AUTOMATIC VULCANIZING LEAD OPERATOR: Fellow David Linares MD ANESTHESIA: sedation Isadora [...] sedation. Ms. Farah was escorted to the [facility] Procedure R oom, where she was [...] procedure. Images were saved, and sent to [email or web address]. Ms. Farah was transported to the [facility] Comprehensive Pain Center post-procedure [...] by physician. Concentration is 150mg/mL. Compounded by [facility] ) LEVONORGESTREL 20 MCG/24 HR (5 [...] GRAM-5.86 GRAM SOLUTION Take as directed by [facility]- 2 gallon bowel prep POLYETHYLENE GLYCOL 3350 [...] might be d ifferent from the original. FORTUNATO/ZOFIA PRE-SEDATION: Date: December 27, 2017 Tracie Farah [id number] 1990 ALLERGIES: Morphine Previous reaction to Sedation/Analgesia: [...] ride here with you? yes Who?: mother RN/INCISING MACHINE OPERATOR History: 1. Has your pain changed from [...] of physical activity and soci al withdrawal ENFoIsadora flaherty RN - 12/27/2017 3:00 PM PSTNurse PRE-SEDATION: Date: December 27, 2017 Tracie Ocampojulita Farah [id number] 1990 See RN /INCISING MACHINE OPERATOR Pre-Sedation Note. IV ACCESS:Right subc PAC. BASELINE VS: See Sedation Flow Sheet. Tracie Donaldson Sofi [id number] 1990, presents to clinic for: Procedure: left [...] started. 1530 Midazolam 2mg IV given 1530 [id number] mcg IV given 1534 Midazolam 1mg IV given 1546 Midazolam 1mg IV given 1546 Jatumxzp473 mcg IV given 1548 Fentanyl 100 mcg IV given bupivacaine 0.5%, 9mL given, 21mL wasted Kenalog 40mg/mL 1mL, 0 mL wasted 1555 abdominal scar trigger point completed. 1558 Fentanyl 50 mcg IV given 1601 Fentanyl 50 mcg IV given Charmco placed for Popliteal Nerve Block.. Placement verified [...] + +--------+ + + + | AR INJECTION(S), | Routin | 12/27/2017 | Complex regional | | | ANESTHETIC AGENT(S) | e | 4:32 PM | pain syndrome type 1 | | | AND/OR STEROID; | | PST | of left lower | | | OTHER PERIPHERAL | | | extremity | | | NERVE OR BRANCH | | | | | + +--------+ + + + | AR ROPIVACAINE HCL | Routin | 12/27/2017 | Complex regional | | | INJ 0.5% | e | 4:32 PM | pain syndrome type 1 | | | | | PST | of left lower | | | | | | extremity | | + +--------+ + + + | AR MOD SEDATION | Routin | 12/27/2017 | Complex regional | | | >=5YRS SAME MD/QUAL | e | 4:32 PM | pain syndrome type 1 | | | PROV; INIT 15 MIN | | PST | of left lower | | | | | | extremity | | + +--------+ + + + documented in this encounter Results TELEGRAPHER AGENT MISC PROCEDURE (12/27/2017 3:28 PM PST) + [...]
--- OUTSIDE RECORDS SUMMARY | ~2020-06-23 | XMS | Encounter Summary ---
Demographics + + + | Address | [address] | | | [place] [address] [...] Providers + +------+ + | Care Field Pipelines Supervisor Name | Role | Phone | + +------+ + | Justo Vazquez MD | PCP | | + +------+ + Encounter Details +--------+ + + + + | Date | Type | Department | Care Team | Description | +--------+ + + + + | 04/23/ | Pharmacy | [facility] | | | | 2019 | Visit | & Healing Pharmacy | | | | | | [address] | | | | | | Mailcode: [place] | | | | | | [facility] and | | | | | | Healing, [address] | | | | | | [place], [place] | | | | | | [address] | | | | | | [phone] | | | +--------+ + + + [...]
--- OUTSIDE RECORDS SUMMARY | ~2020-06-23 | XMS | Encounter Summary ---
Demographics + + + | Address | [address] | | | [place] [address] | + + + | Home Phone [...] Providers + +------+ + | Care Wharf Builder Name | Role | Phone | + +------+ + | Justo Vazquez MD | PCP | | + +------+ + Encounter Details +--------+ + + + + | Date | Type | Department | Care Team | Description | +--------+ + + + + | 12/07/ | Pharmacy | [facility] | | | | 2019 | Visit | & Healing Pharmacy | | | | | | [address] | | | | | | Mailcode: [place] | | | | | | [facility] | | | | | | Healing, Building [address] | | | | | | [place], [place] | | | | | | [address] | | | | | | [phone] | | | +--------+ + + + [...]
--- OUTSIDE RECORDS SUMMARY | ~2020-06-23 | XMS | Encounter Summary ---
Demographics + + + | Address | [address] | | | [place] [address] | + + + | Home Phone [...] Team Providers + +------+ + | Care Painter Helper Sign Name | Role | Phone | + +------+ + | Justo Vazquez MD | PCP | | + +------+ + Encounter Details +--------+------+ + + + | Date | Type | Department | Care Team | Description | +--------+------+ + + + | 12/14/ | Lab | Laboratory at [facility] | | Complex regional | | 2018 | | [address] | | pain syndrome type 1 | | | | Center for [facility] | | of left lower | | | | and Healing, | | extremity; Muscle | | | | Building 2 | | pain | | | | [place], [place] | | | | | | [address] | | | | | | [phone] | | | +--------+------+ + + + [...] | + + + + + | [facility] | [address] [facility] | [place] [address] | | | LILLIAN CROSS | GUILLERMO [...]
--- OUTSIDE RECORDS SUMMARY | ~2020-06-23 | XMS | Encounter Summary ---
Demographics + + + | Address | [address] | | | [place] [address] | + + + | Home Phone [...] Team Providers + +------+ + | Care Flash Drier Operator Name | Role | Phone | + +------+ + | Justo Vazquez MD | PCP | | + +------+ + Encounter Details +--------+ + + + + | Date | Type | Department | Care Team | Description | +--------+ + + + + | 09/27/ | Telephone | [facility] | Ilene Bright, | | | 2017 | | Pain Center at | TRAFFIC WAREHOUSE SUPERVISOR [address] | | | | | [facility] | [place], [place] | | | | | [address] | [address] | | | | | [place] for [facility] | [phone] | | | | | and Healing, | | | | | | | | | | | | Floor [place], [place] | | | | | | [address] | | | | | | [phone] | | | +--------+ + + + [...]
--- OUTSIDE RECORDS SUMMARY | ~2020-06-23 | XMS | Encounter Summary ---
Demographics + + + | Address | [address] | | | [place] [address] | + + + | Home Phone [...] Providers + +------+ + | Care Logistics Intern Name | Role | Phone | + +------+ + | Justo Vazquez MD | PCP | | + +------+ + Encounter Details +--------+ + + + + | Date | Type | Department | Care Team | Description | +--------+ + + + + | 10/03/ | Telephone | [facility] | Ilene Bright, | | | 2017 | | Pain Center at | LEASE PURCHASE TRUCK DRIVER [address] | | | | | [facility] | [place], [place] | | | | | [address] | [address] | | | | | [place] for [facility] | [phone] | | | | | and Healing, | | | | | | | | | | | | Floor [place], [place] | | | | | | [address] | | | | | | [phone] | | | +--------+ + + + [...]
--- OUTSIDE RECORDS SUMMARY | ~2020-06-23 | XMS | Encounter Summary ---
Demographics + + + | Address | [address] | | | [place] [address] | + + + | Home Phone [...] Team Providers + +------+ + | Care Ibm Websphere Portal Developer Name | Role | Phone | + +------+ + | Justo Vazquez MD | PCP | | + +------+ + Encounter Details +--------+ + + + + | Date | Type | Department | Care Team | Description | +--------+ + + + + | 10/20/ | Telephone | [facility] | Ilene Bright, | | | 2017 | | Pain Center at | DRY CLEANING MANAGER [address] | | | | | [facility] | [place], [place] | | | | | [address] | [address] | | | | | [place] for [facility] | [phone] | | | | | and Healing, | | | | | | | | | | | | Floor [place], [place] | | | | | | [address] | | | | | | [phone] | | | +--------+ + + + [...]
--- OUTSIDE RECORDS SUMMARY | ~2020-06-23 | XMS | Encounter Summary ---
Demographics + + + | Address | [address] | | | [place] [address] | + + + | Home Phone [...] Team Providers + +------+ + | Care Meat Service Team Member Name | Role | Phone | [...] | | | 2019 | Event | [facility] | MD Juan [address] | | | | | and Healing Surgery | [address] | | | | | Center Admitting | [place], [place] | | | | | Desk Located on the | [address] | | | | | 4th floor [address] | [phone] | | | | | [address] [place], | | | | | | [place] [address] | Arben Valerio MD | | | | | | [address] | | | | | | [address] | | | | | | [place], [place] | | | | | | [address] | | | | | | [phone] | | | | | | | [...]
--- OUTSIDE RECORDS SUMMARY | ~2020-06-23 | XMS | Encounter Summary ---
Demographics + + + | Address | [address] | | | [place] [address] | + + + | Home Phone [...] Team Providers + +------+ + | Care Zyglo Technician Name | Role | Phone | + +------+ + | Justo Vazquez MD | PCP | | + +------+ + Encounter Details +--------+ + + + + | Date | Type | Department | Care Team | Description | +--------+ + + + + | 05/12/ | MyChart | Pain Center at [facility] | Ewa Melchor, | RE: Schedule change | | 2017 | Encounter | [address] | MORTGAGE LOAN REVIEWER [address] | | | | | [place] for [facility] | [address] | | | | | and Healing, | [place] [address] | | | | | | [phone] | | | | | Floor [place], [place] | | | | | | [address] | | | | | | [phone] | | | +--------+ + + + [...]
--- OUTSIDE RECORDS SUMMARY | ~2020-06-23 | XMS | Encounter Summary ---
Demographics + + + | Address | [address] | | | [place] [address] | + + + | Home Phone [...] Providers + +------+ + | Care Data Control Assistant Name | Role | Phone | + +------+ + | Justo Vazquez MD | PCP | | + +------+ + Encounter Details +--------+ + + + + | Date | Type | Department | Care Team | Description | +--------+ + + + + | 01/02/ | Telephone | [facility] | [place] Bright, | | | 2019 | | Pain Center at | TIRE GROOVER [address] | | | | | [facility] | [place], [place] | | | | | [address] | [address] | | | | | [place] for [facility] | [phone] | | | | | and Healing, | | | | | | | | | | | | Floor [place], [place] | | | | | | [address] | | | | | | [phone] | | | +--------+ + + + [...]
--- OUTSIDE RECORDS SUMMARY | ~2020-06-23 | XMS | Encounter Summary ---
Demographics + + + | Address | [address] | | | [place] [address] | + + + | Home Phone [...] Team Providers + +------+ + | Care Customer Service Correspondence Clerk Name | Role | Phone | [...] | [facility] | Aleta Rebollar MD [address] | Nause[place] | | 2018 | | Pain Center at | [address] | | | | | [facility] | [place], [place] | | | | | [address] | [address] | | | | | [facility] | [phone] | | | | | and Healing, | | | | | | Building | | | | | | [place], [place] | | | | | | [address] | | | | | | [phone] | | | +--------+ + + + [...]
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
--- OUTSIDE RECORDS SUMMARY | ~2020-06-23 | XMS | Encounter Summary ---
Demographics + + + | Address | [address] | | | [place] [address] | + + + | Home Phone [...] Providers + +------+ + | Care Senior Assistant Manager Name | Role | Phone | [...] ogy | | Ava Torres, | [address] | | | | | Constipation | [address] | [address] | | | | | , | Mook Shane | [place] for | | | | | unspecified | [address] | Health and | | | | | constipation | [facility] [place] | Healing, | | | | | type | [address] | Building 2 | | | | | Procedures | | [place], [place] | | | | | CONSULT TO | | [address] | | | | | GI PROCEDURE | | Phone: | | | | | UNIT: | | [phone] | | | | | ANORECTAL | | Fax: | | | | | MANOMETRY | | [phone] | | | | | IA ANAL | | | | | | | PRESSURE | | | | | | | RECORD | | | +--------+--------+ + + + + Encounter Details +--------+ + + + + | Date | Type | Department | Care Team | Description | +--------+ + + + + | 09/14/ | Hospital | [facility] | Nurse, Gip [address] | | | 2016 | Encounter | [facility] [address] | [facility] | | | | | [address] [facility] for | Road [place], [place] | | | | | Health and Healing, | [address] | | | | | Building [address] | | | | | | [place], [place] | | | | | | [address] | | | | | | [phone] | | | +--------+ + + + [...]
--- OUTSIDE RECORDS SUMMARY | ~2020-06-23 | XMS | Encounter Summary ---
Demographics + + + | Address | [address] | | | [place] [address] | + + + | Home Phone [...] Team Providers + +------+ + | Care Front Man Name | Role | Phone | + +------+ + | Justo Vazquez MD | PCP | | + +------+ + Encounter Details +--------+ + + + + | Date | Type | Department | Care Team | Description | +--------+ + + + + | 12/07/ | Pharmacy | [facility] | | | | 2019 | Visit | & Healing Pharmacy | | | | | | [address] | | | | | | Mailcode: [place] | | | | | | [facility] Health and | | | | | | Healing, Building [address] | | | | | | [place], [place] | | | | | | [address] | | | | | | [phone] | | | +--------+ + + + [...]
--- OUTSIDE RECORDS SUMMARY | ~2020-06-23 | XMS | Encounter Summary ---
Demographics + + + | Address | [address] | | | [place] [address] | + + + | Home Phone | | + + + | Preferred Language | Unknown | + + + | Marital Status | Single | + + + | Anabaptism Affiliation | 1073 | + + + | Race | Unknown | + + + | Ethnic Group | Unknown | + + + Author + + + | Author | [facility] | | | and [place] | + + + | Organization | [facility] | | | and [...] [place] | | | | | [address] | | + + + + + | Bryant Farah | ERICKA | Unknown | | + + + + + Care Team Providers + +------+ + | Care Nfl Player Name | Role | Phone | + +------+ + PCP | Unavailable | + +------+ + Encounter Details +--------+ + + + + | Date | Type | Department | Care Team | Description | +--------+ + + + + | 09/12/ | Hospital | [facility] | | | | 2008 | Encounter | [facility] | | | | | | CENTER [address] | | | | | | [place], [place] | | | | | | [address] | | | | | | [phone] | | | +--------+ + + + [...]
--- OUTSIDE RECORDS SUMMARY | ~2020-06-23 | XMS | Encounter Summary ---
Demographics + + + | Address | [address] | | | [place] [address] | + + + | Home Phone [...] Providers + +------+ + | Care Paper Cleaner Name | Role | Phone | [...] Rd | | | | | | [place], [place] | | | | | | [address] | | | +--------+ + + + [...]
--- OUTSIDE RECORDS SUMMARY | ~2020-06-23 | XMS | Encounter Summary ---
Demographics + + + | Address | [address] | | | [place] [address] | + + + | Home Phone [...] Providers + +------+ + | Care Dealer Analyst Name | Role | Phone | [...] 08/11/ | Documentati | [facility]IN [facility] at [facility] | Lab, Gi Procedure | Medical Records | | 2015 | on | [facility] [address] | | Review | | | | [address] [facility] for | | | | | | Health and Healing, | | | | | | Building [address] | | | | | | [place], [place] | | | | | | [address] | | | | | | [phone] | | | +--------+ + + + [...]
--- OUTSIDE RECORDS SUMMARY | ~2020-06-23 | XMS | Encounter Summary ---
Demographics + + + | Address | [address] | | | [place] [address] | + + + | Home Phone [...] Team Providers + +------+ + | Care Crane Engineer Name | Role | Phone | [...] | | | | | syndrome | [facility] | | | | | type 1 of | Rd | Rd [place], | | | | | left lower | [facility], [place] | [place] | | | | | extremity | [address] | [address] | | | | | Procedures | Phone: | Phone: | | | | | REQUEST TO | [phone] | [phone] | | | | | SURGERY | Fax: | Fax: | | | | | ENVIRONMENTAL SCIENCE INSTRUCTOR | [phone] | [phone] | +--------+---------+ + + + + Physical [...] | | | | regional | ,PhD [address] | OTPTRehab | | | | | pain | [facility] | [address] | | | | | syndrome | [facility] | Valley | | | | | type 1 of | Rd | [place] | | | | | left lower | [place], [place] | [address] | | | | | extremity | [address] | Phone: | | | | | Procedures | Phone: | [phone] | | | | | PHYSICAL | [phone] | Fax: | | | | | THERAPY | Fax: | [phone] | | | | | REFERRAL | [phone] | | +--------+--------+ + + + + [...] | | | | Procedures | [place], [place] | Rd [place], | | | | | CONSULT TO | [address] | [place] | | | | | PAIN | | [address] | | | | | MANAGEMENT | | Phone: | | | | | | | [phone] | | | | | | | Fax: | | | | | | | [phone] | +--------+--------+ + + + + Encounter Details +--------+---------+ + + + | Date | Type | Department | Care Team | Description | +--------+---------+ + + + | 06/12/ | Office | [facility] Comprehensive | Alex Sanchez, | Complex regional | | 2018 | Visit | Pain Center at | ,PhD [address] [facility] | pain syndrome type 1 | | | | [facility] | [facility] [address] | of left lower | | | | [address] | [place], [place] | extremity (Primary | | | | Center for Health | [address] | Dx) | | | | and Healing, | [phone] | | | | | | | | | | | Floor [place], [place] | | | | | | [address] | | | | | | [phone] | | | +--------+---------+ + + + [...] in the future, please contact me via Auxogyn to request an order to schedule. The procedure you discussed with your doctor is called: SCS DRG TRIAL LUMBAR [facility]. Please make sure this is scheduled with the Market Analyst. PRE-PROCEDURE INSTRUCTIONS 1. Please bring a van driver with you as we may give you medications that impair your ability to drive. This is necessary even if you do not receive sedation. You may take a taxi or ri [employer] if you are accompanied by a responsible [...] or blood thinning medications (other than aspirin), th e doctor who is doing your procedure will communicate with the provider who is prescribing y our anticoagulant therapy. If you do not have clear instructions on what to do with your an ticoagulant by 2 weeks before your procedure, please contact [facility] to cl arify your instructions. The phone number for questions or concerns is [phone]. documented in this encounter Progress Notes Holly [...] MD,P hD - 06/12/2018 10:00 AM PDT [facility] Return Visit Date: 06/12/2018 Chief Complaint Patient presents with Pain in left leg History of Present Illness: Tracie Farah is a 28 year old female, whose last appoi ntment at the [facility] was May 08, 2018, for [...] that this mildly agitated her neck pain. 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, Surgeon: Janak Riojas MD Cholecystectomy Appendectomy [...] History Social History Narrative Single. Goes to [employer] with a light load. Has been working at [email or web address], can' t work on [employer]. Has roommates. Allergies Allergen Reactions Morphine Anaphylaxis [...] by physician. Concentration is 150mg/mL. Compounded by [facility] ) KETOROLAC IM Inject into the [...] and summary of old medical records (source: [employer]), as summarized in the body of the [...] to send me a mess age via Auxogyn to request referrals to acupuncture and massage [...] by Sonia Key. Alex Sanchez MD PhD Waxed Bag Machine Operator Anesthesiology and Pain Management [facility] documented in t his encounter [...]
--- OUTSIDE RECORDS SUMMARY | ~2020-06-23 | XMS | Encounter Summary ---
Demographics + + + | Address | [address] | | | [place] [address] | + + + | Home Phone [...] Team Providers + +------+ + | Care Rack Maker Name | Role | Phone | [...] 2015 | | Center at [facility] [address] | MD Melissa | | | | | [address] [facility] | | | | | | for Health and | | | | | | [facility], [address] | | | | | | [place], [place] | | | | | | [address] | | | | | | [phone] | | | +--------+ + + + [...]
--- OUTSIDE RECORDS SUMMARY | ~2020-06-23 | XMS | Encounter Summary ---
Demographics + + + | Address | [address] | | | [place] [address] | + + + | Home Phone [...] Providers + +------+ + | Care Manager Books Name | Role | Phone | + +------+ + | Justo Vazquez MD | PCP | | + +------+ + Encounter Details +--------+ + + + + | Date | Type | Department | Care Team | Description | +--------+ + + + + | 04/03/ | Telephone | [facility] | Alex Sanchez, | | | 2019 | | Pain Center at | ,PhD [address] | | | | | [facility] | [address] | | | | | [address] | [place], [place] | | | | | [place] for [facility] | [address] | | | | | and Healing, | [phone] | | | | | | | | | | | Floor [place], [place] | | | | | | [address] | | | | | | [phone] | | | +--------+ + + + [...]
--- OUTSIDE RECORDS SUMMARY | ~2020-06-23 | XMS | Encounter Summary ---
Demographics + + + | Address | [address] | | | [place] [address] | + + + | Home Phone [...] Providers + +------+ + | Care Welding Machine Tender Name | Role | Phone | [...] | | 2016 | | Center at [facility] [address] | MD Melissa | | | | | [address] | | | | | | for Health and | | | | | | Healing, [address] | | | | | | [place], [place] | | | | | | [address] | | | | | | [phone] | | | +--------+ + + + [...]
--- OUTSIDE RECORDS SUMMARY | ~2020-06-23 | XMS | Encounter Summary ---
Demographics + + + | Address | [address] | | | [place] [address] | + + + | Home Phone [...] Providers + +------+ + | Care Lead Qa Analyst Name | Role | Phone | [...] | | | regional | [place] | [address] | | | | | pain | FAMILY | [facility] | | | | | syndrome), | MEDICINE P | [address]641 | | | | | lower limb | [address] | [place], [place] | | | | | Pain in | [place], | [address] | | | | | joint, lower | [place] [address] | Phone: | | | | | leg | Phone: | [phone] | | | | | Procedures | [phone] | Fax: | | | | | REQUEST TO | Fax: | [phone] | | | | | SURGERY | [phone] | | | | | | SPLITTER MACHINE | | | +--------+--------+ + + + + Encounter Details +--------+ + + + + | Date | Type | Department | Care Team | Description | +--------+ + + + + | 08/02/ | Procedure | Pain Center at [facility] | Dale Cantu, | Procedure; | | 2011 | | [address] | [address] | Injection; Procedure | | | | [facility] | [facility] 439662 | | | | | and Healing, | [place], [place] | | | | | [facility] | [address] | | | | | Floor [place], [place] | [phone] | | | | | [address] | | | | | | [phone] | | | +--------+ + + + [...] might be different from the original. [facility] Patient Instructions - Post Spinal Cord Stimulator Trial Date: 08/02/2012 Name: Tracie Farah Date of : 1990 Procedure Performed: SCS TRIAL LUMBAR [facility]. Procedure Provider: Dale Cantu [facility] Procedure Rm If you have any problems you believe are associated with your procedure tonight, Please call the Hospital Dowel Machine Operator, and ask for the Pain Management Consu ltant. If you have problems or questions between 9:00 am and 4:00 pm, Please call the [facility] Nurse Triage Line, . If you go to an Emergency Room, please bring this form with you. DISCHARGE INSTRUCTIONS Call immediately and/or go to the Emergency department if any concerns about wound healing, fever, or chills. Also call for concerns about SCS function. During [facility] open hours, call the [facility] ([phone]), after hours call the staining machine operator at [facility] ([phone]) and ask for t he Adult Pain Service concrete block plant supervisor. Identify yourself as a [facility] [...] the wounds, dressing, or SCS function. During PROGRAMMING EQUIPMENT OPERATOR o pen hours, call the PROGRAMMING EQUIPMENT OPERATOR ([phone]), after hours call the staining machine operator at [facility] ([phone] ) and ask for the Adult Pain Service concrete block plant supervisor. Identify yourself as my patient with a concer n about postoperative recovery. If there are concerns about the SCS programming, contact t he licensing representative from the SCS teacher tutor. If the stimulation is not covering your area o f pain, your SCS should be reprogrammed. Do not take any blood thinning medications during the trial. Instructions printed and reviewed with the patient. Copy of instructions given to Ms. Nemo renee. DALE CANTU MD [facility] documented in this encounter Progress Notes Dale Cantu MD - 08/03/2012 11:02 PM PDTI was present for the entire procedure (spinal cord stimulator trial lead placement, [facility]). I concur with Dr. Yost's findings. I edited his note. She noted an appropriate pattern of simulation with multiple contact confi gurations. She was provided programming and postoperative care instructions. DALE CANTU MD Internal Medicine Physician Assistant, [facility] Roll Forming Machine Operator, Pain Medicine Professor, Anesthesiology & Perioperative Medicine Diana Arroyo RN - 08/02/2012 7:34 AM PDT PRE-SEDATION: Date: August 02, 2012 Tracie Farah [id number] 1990 ALLERGIES: Morphine Previous reaction to Sedation/Analgesia: MEDICATIONS: Current Outpatient Prescriptions Medication HYDROcodone-acetaminophen (NORCO) 10-325 mg Oral Tablet KETOROLAC TROMETHAMINE (TORADOL IM) levonorgestrel (MIRENA) 20 mcg/24 hr Intrauterine IUD LORazepam 1 mg Oral Tablet ondansetron (ZOFRAN) 8 mg Oral Tablet promethazine 25 mg Oral Tablet Meets NPO Guidelines. IV ACCESS: IV in Place IV Site [facility] 22 g @ 0655 BASELINE VS: See Sedation Flow Sheet. Tracie Donaldson [facility] [id number] 1990, presents to clinic for: Procedure: Spinal [...] 0732 - 0733: Midazolam 2 [place] [address]: Fentanyl 25 mcg IV 0740 - 0741: Midazolam 2 mg IV 0742: Procedure started 0743 - 0744: Fentanyl 50 mcg IV 0753-54: Fentanyl 25 mcg IV Lead # 1 placed Lead # 2 placed 0801: Stimulation started. 0829: Pt reports stimulation to usual areas of pain. Leads secured. 0845: Pt returned to [facility] in stable condition. IV dc'd. Evelia Parsons [...] OPERATIVE NOTE Date: August 02, 2012 Location: [facility] Procedure Room Tracie Farah [id number] :1990, presents to clinic for: PROCEDURE: Spinal Cord Stimuation Trial LEVEL/LATERALITY: midline lumbar PRE-OPERATIVE DIAGNOSIS: 355.71B CRPS (complex regional pain syndrome), lower limb 719.46 Pain in joint, lower leg 781.2Q Gait disturbance POST-OPERATIVE DIAGNOSIS: 355.71B CRPS (complex regional pain syndrome), lower limb 719.46 Pain in joint, lower leg 781.2Q Gait disturbance ATTENDING PHYSICIAN: Dale Cantu MD BASKETBALL REFEREE: Fellow Bear Yost DO ANESTHESIA: sedation delivered [...] sedation. Ms. Farah was escorted to the [facility] Procedure Ro om, where she was positioned Prone on the examination table. TEAM PAUSE: The physician-led pause was conducted, and is documented in the Nursing note. Monitors were placed, including ECG, NIBP and SpO2. The skin was prepared with Chloroprep and sterile drapes were applied. LeanKit system was used for this procedure. The company licensing representative was theresa knutson for the procedure. [...] pain. Ms. Farah was transported to the [facility] Center post-procedure recovery area where she made an uneventful recovery. Images were saved, and sent to [employer]. Ms. Farah will have her next appointment [...] about wound healing or SCS function. During [facility] open hours, call the [facility] ([phone]), after h ours call the staining machine operator at [facility] ([phone]) and ask for the Adult Pain Service concrete block plant supervisor. Identify yourself as my patient with a [...] | + +--------+ + + + | CO PERCUT IMPLNT | Routin | 08/03/2012 | [...]
--- OUTSIDE RECORDS SUMMARY | ~2020-06-23 | XMS | Encounter Summary ---
Demographics + + + | Address | [address] | | | [place] [address] | + + + | Home Phone [...] Providers + +------+ + | Care Safety Assistant Name | Role | Phone | [...] | [facility] | Aleta Rebollar MD [address] | [place] | | 2018 | | Pain Center at | [address] | | | | | [facility] | [place], [place] | | | | | [address] | [address] | | | | | [place] for [facility] | [phone] | | | | | and Healing, | | | | | | Building | | | | | | [place], [place] | | | | | | [address] | | | | | | [phone] | | | +--------+ + + + [...]
--- OUTSIDE RECORDS SUMMARY | ~2020-06-23 | XMS | Encounter Summary ---
Demographics + + + | Address | [address] | | | [place] [address] | + + + | Home Phone [...] Providers + +------+ + | Care Locomotive Engineer Diesel Name | Role | Phone | + [...] Pain Medicine | Diagnoses | Chasity, | Director Of Business Development Chh1 | | | | / Pain | Abdominal | MD Kenny | [address] | | | | Management | pain, | [address] | [facility] | | | | | unspecified | [facility] | for Health | | | | | location | Rd | and Healing, | | | | | Procedures | [place], [place] | Building | | | | | CONSULT TO | [address] | 1,15th Floor | | | | | PAIN | | [place], [place] | | | | | MANAGEMENT | | [address] | | | | | | | Phone: | | | | | | | [phone] | | | | | | | Fax: | | | | | | | [phone] | +--------+--------+ + + + + Reason [...] Abdominal | | 2016 | | Center [place] [address] [address] | | pain | | | | [address] [facility] | | | | | | for Health and | | | | | | Healing, [facility] [address] | | | | | | [place], [place] | | | | | | [address] | | | | | | [phone] | | | +--------+ + + + [...]
--- OUTSIDE RECORDS SUMMARY | ~2020-06-23 | XMS | Encounter Summary ---
Demographics + + + | Address | [address] | | | [place] [address] | + + + | Home Phone [...] | Diagnoses | Beulah | Edu Pt Welder Pipe Making | | | | Therapy | CRPS | Janak Martinez MD | Ch[address] | | | | | (complex | [address] | | | | | regional | [address] | Mailcode: | | | | | pain | [facility] | [facility] | | | | | syndrome), | [id number] | for Health | | | | | lower limb | [place], [place] | and Healing, | | | | | Gait | [address] | Building [address] | | | | | disturbance | Phone: | [place], [place] | | | | | Muscle pain | [phone] | [address] | | | | | Procedures | Fax: | Phone: | | | | | PHYSICAL | [phone] | [phone] | | | | | THERAPY | [...] | | | | [address] [place] | [place] [address] | syndrome), lower | | | | [address] | [phone] | limb (Primary Dx) | | | | [facility] | | | | | | and Healing, | | | | | | Building 1, | | | | | | Floor [place], [place] | | | | | | [address] | | | | | | [phone] | | | +--------+---------+ + + + [...] might be different f rom the original. [id number] BRODY FARAH Date of : 1990 Start of care: 02/14/2012 Date of onset: 02/14/2012 Referring/Attending Practitioner: Janak Riojas MD . Primary/Referral Diagnosis/ICD-9: 355.71B CRPS (complex regional pain syndrome), lower limb Insurance: Payor: [facility] [employer] [facility] Plan: BCBS OUT OF STATE Product Type: PP O Service period from: 02/14/2012 to: 08/12/2012 Number visits used/authorized: 11/25 [facility] PHYSICAL THERAPY INITIAL EVALUATION SUBJECTIVE: Age: [...] pain relief. Admitted to the inpatient [facility] program for 1 month in [...] Diagnostic evaluation: Records from CRPS program at [facility]. Suggest three phase bone sca n. [...] employed by the psychologists here at the [facility]. 2.2 Physical therapy can reduce pain and improve functional status. Suggest Guillermo Sanon. 3. Medication suggestions: 3.1 Continue titrating up duloxetine. 3.2 As for any patient being managed with chronic opioids, we do recommend that the patient have a signed [facility] Material Risk Notice, agree to whatever [...] and hemr oidectomy. Social History: lives in [place], 22 years old, not working currently, [...] concerns about therapy: she lives in [place]. She is r equesting family members [...] provided with a token and bocanegra for [facility] site. Treatment began: 1345hrs Treatment ended: 1430hrs Manual therapy: 0min Therapeutic exercise: 15 min ASSESSMENT: pt presents with 10-year history of ankle pain post trauma and multiple surgeri es. She thinks she developed CRPS in 2004. She was diagnosed with CRPS and spent a month in the program at [facility] working through aggressive desensitization and activation which prov ided no lasting benefit. She lives in [place], is going to school, and ambulates [...] She can work with her PT in [place]. CLINICAL PRIORITIES: 1-follow up with Dr [...] change in their status. Guillermo Sanon MSPT [facility] Outpatient Rehabilitation Services Mailcode: Ch3p [address] [facility], [address]st [facility] [address] documented in this encounter Plan of Treatment Not on filedocumented as of this encounter Procedures + +--------+ + + + | Procedure Name | Priori | Date/Time | Associated Diagnosis | Comments | | | ty | | | | + +--------+ + + + | MO THERAPEUTIC | Routin | 02/16/2012 | CRPS (complex | | | EXERCISES | e | 3:34 PM | regional pain | | | | | PDT | syndrome), lower | | | | | | limb | | + +--------+ + + + | MO PHYS THERAPY | Routin | 02/16/2012 | [...]
--- OUTSIDE RECORDS SUMMARY | ~2020-06-23 | XMS | Encounter Summary ---
Demographics + + + | Address | [address] | | | [place] [address] | + + + | Home Phone [...] Providers + +------+ + | Care Basket Weaver Name | Role | Phone | [...] + + | 10/21/ | Hospital | [place] [address] [address] | [place], | | | 2015 - | Encounter | [facility] | MD Tala [address] | | | | | [address] [place] [address] | [facility] | | | 10/25/ | | [place], [place] | [place], [place] | | | 2014 | | [address] | [address] | | | | | [phone] | [phone] | | | | | | | | | | | | Clifton Childers | | | | | | MD Nhan [address] [facility] | | | | | | [facility] | | | | | | [place], [place] | | | | | | [address] | | | | | | [phone] | | | | | | | [...] child. Followed by Dr. Katy berrios at [facility] in [place], [place]. Has been on a stable regimen for [...] agreeable with our plans. Clifton Childers MD Rotogravure Press Operator Division of Hospital Medicine Teaching Attending I [...] child. Followed by Dr. Katy berrios at [facility] in [place], [place], has been on a stable regimen [...] and plan. Lolita Ma MD, MPH Pager #[phone] PGY-1, Anesthesiology [facility] Associated attestation - Clifton Childers [...] agreeable with our plans. Clifton Childers MD Rotogravure Press Operator Division of Hospital Medicine Teaching Attending I [...] child. Followed by Dr. Katy berrios at [facility] in [place], [place], has been on a stable regimen for [...] and plan. Lolita Ma MD, MPH Pager #[phone] PGY-1, Anesthesiology [facility] Associated attestation - Clifton Childers MD - 10/23/2015 4:10 PM PSTGeneral Medicine Attending Progress Note Author: Clifton Childers MD Hospital Day # 2 PCP: JBORN Villalpando I personally interviewed the patient, performed [...] history, primarily secondary to CPRS in the [facility] ng of complicated ankle fracture age [...] would like the patient to establish in fpc counseling and/or CBT as an outpatient if willing. Patient/Family Goals & Expectations: Above problems discussed with the patient who understands and is agreeable with our plans. Clifton Childers MD Rotogravure Press Operator Division of Hospital Medicine Teaching Attending I [...] good coping mechanism Heme/Lymphatic: negative Endocrine: negative Ad Trafficker: negative Past Medical History: History of chronic [...] for he r CRPS in the pastm [facility] pharmacy does not carry this so we are trying to arrange for her to take her home medication via pharmacy approval 5. APS will sign off but please call with questions/concerns Aba Dorman MD, PGY 3 Conduit Mechanic [place]-2 APS Pager: [phone] BILLING INFORMATION Deferred to attending physician. Ms. [...] up at this point. Please contact APS (#[phone]) if further assistance is needed. Ulices Lopez MD BILLING INFORMATION [facility] DEPARTMENT: [phone] Place of Service:- Inpatient Date of Service: 10/23/2015 CSN: [id number] Suggested Modifier: GC - Resident Involved Suggested CPT: 83388 - Follow up visit (includes PNB) - [...] today recd call from Dr. Madrid from [facility]. She has known pt for many yea rs and suggested ketamine and propofol gtt. Updated her on APS recommendations. She will hav e her office fax her clinic records to us. Pt was seen with Dr. Childers. Milton Moreau MD PGY-3, Internal Medicine Pager [phone] Pro Edwards RN - 10/22/2015 10:06 AM PSTActing as scribe for the UR Committee Physician named below. The primary medical team for this patient and the [facility] UR Committee have agreed after furth er study that an inpatient admission was not medically necessary. This hospital stay is con verted to an outpatient stay through use of Medicare Condition Code 44. The patient was not ified of this change in writing. The providers involved in this decision were: For patient s primary medical team: Melissa Childers MD For [facility] UR Committee: Kerry HARRIS RN CM [...] | | | LABORATORY | | | INDIAN | | | SERVICES, | | | [...] | + + + + + | [facility] | [address] | [place] [address] | | | SERVICES, CORE | PARK [...] | | + +---------+ + + | [facility] DEPARTMENT OF | | | | [...] | + + + | STAT | [facility] | | | LABORATORY | | | LILLIAN CROSS | + + + + + + + + | Performing | Address | City/State/Zipcode | Phone Number | | Organization | | | | + + + + + | [facility] | [address] | [place] [address] | | | SERVICESLILLIAN | [address] [...] | | | LABORATORY | | | INDIAN | | | SERVICES, | | | [...] the MDRD equation recommended by the | [facility] | | National Kidney Disease Education [...] [facility] | [address] | [place] [address] | | | SERVICES, CORE | PARK [...] | + + + + + | [employer] | [address] | [place] [address] | | | SERVICES, CORE | GUILLERMO [...] [facility] | [address] | [place] [address] | | | SERVICES, CORE | PARK [...] | + + + + + | [facility] | [address] | [place] [address] | | | SERVICES, CORE | PARK [...] | + + + + + | [facility] | [address] [facility] | [place] [address] | | | SERVICES, CORE | GUILLERMO [...] | | | LABORATORY | | | INDIAN | | | SERVICES, | | | [...] [facility] | [address] | [place] [address] | | | SERVICES, CORE | PARK [...] | | | | | 1 dose, [facility] 10/23/15 at 1245 | | PM PST | | | | + +-------+ +-------+---+---+ +---+---+ | | | +---+---+ + +-------+ +--------+---+---+ | ibuprofen (MOTRIN) tablet 600 | Given | 10/25/20 | 600 mg | | | | mg 600 mg, oral, EVERY 6 HOURS, | | 15 8:05 | | | | | First dose on [facility] 10/23/15 at | | AM PST [...] | | | | | NEEDED, Starting [facility] 10/23/15 at | | | | | | | 1102, Until 10/26/15 at 0006, | | | | | | | nausea/vomiting, Please | | | | | | | alternate w uydi | | | | | | + [...]
--- OUTSIDE RECORDS SUMMARY | ~2020-06-23 | XMS | Encounter Summary ---
Demographics + + + | Address | [address] | | | [place] [address] | + + + | Home Phone [...] Providers + +------+ + | Care Marketing Segment Manager Name | Role | Phone | + +------+ + | Justo Vazquez MD | PCP | | + +------+ + Encounter Details +--------+ + + + + | Date | Type | Department | Care Team | Description | +--------+ + + + + | 12/27/ | Ancillary | [facility] | Alex Sanchez, | | | 2018 | Orders | Pain Center at | ,PhD [address] | | | | | [facility] | [address] | | | | | [address] | [place], [place] | | | | | [place] [facility] | [address] | | | | | and Healing, | [phone] | | | | | | | | | | | Floor [place], [place] | | | | | | [address] | | | | | | [phone] | | | +--------+ + + + [...]
--- OUTSIDE RECORDS SUMMARY | ~2020-06-23 | XMS | Encounter Summary ---
Demographics + + + | Address | [address] | | | [place] [address] | + + + | Home Phone [...] Team Providers + +------+ + | Care Hooking Machine Operator Name | Role | Phone | + +------+ + | Justo Vazquez MD | PCP | | + +------+ + Encounter Details +--------+ + + + + | Date | Type | Department | Care Team | Description | +--------+ + + + + | 12/05/ | Procedure | [facility] | | | | 2019 | Pass | [place] [facility] | | | | | | and Healing Surgery | | | | | | Center Admitting | | | | | | Desk Located on the | | | | | | 4th floor [address] | | | | | | [address] [place], | | | | | | [place] [address] | | | +--------+ + + + [...]
--- OUTSIDE RECORDS SUMMARY | ~2020-06-23 | XMS | Encounter Summary ---
Demographics + + + | Address | [address] | | | [place] [address] | + + + | Home Phone [...] + +------+ + | Care Vice President Sales Name | Role | Phone | + +------+ + | Justo Vazquez MD | PCP | | + +------+ + Encounter Details +--------+------+ + + + | Date | Type | Department | Care Team | Description | +--------+------+ + + + | 04/23/ | Lab | Laboratory at [facility] | | Other chronic pain ; | | 2018 | | [address] | | Complex regional | | | | Center for [facility] | | pain syndrome type 1 | | | | and Healing, | | of left lower | | | | Building 2 | | extremity | | | | [place], [place] | | | | | | [address] | | | | | | [phone] | | | +--------+------+ + + + [...] LABORATORY | | Barbiturates >=200 ng/mL | [facility] | | Benzodiazepine >=200 ng/mL Cocaine | [...] | [place] [facility] | [address] | [place] [address] | | | SERVICES, LILLIAN | [address]LLERMO [...]
--- OUTSIDE RECORDS SUMMARY | ~2020-06-23 | XMS | Clinical Summary ---
Demographics + + + | Address | [address] | | | [place] [address] | + + + | Home Phone [...] | Author | [facility] | + + + | Organization | [facility] | + + + | Address | Unknown | + + + | Phone | Unavailable | + + + Support + + +---------+ + | Name | Relationship | Address | Phone | + + +---------+ + | Patricia Colin | ECON | Unknown | | + + +---------+ + Care Team Providers + +------+ + | Care Loader Operator Supervisor Name | Role | Phone | + +------+ + | Justo Vazquez MD | PCP | | + +------+ + Source Comments KEVIN is fully live on both [facility] and [facility] InPatient.[facility] Allergies + + + + + [...] Noted Date | + + + | [facility] CLINICAL PROTOCOL PATIENT (PETER) - Implanted Spinal Cord | 12/14/2018 | | Stimulator | | + + + + + | Overview: Patient has an implanted Progressus spinal | | cord stimulator. Model#: [id number]. Contact [phone] for | | technical assistance.Contraindications:Sources of strong [...] | Right: | BARD | | | [id number] | | Port-10/05/2016Implanted: | | Chest | | | | 0 / | | 10/05/2016 by Obdulio Simpson, | | | | | | /VIKY | | (Quantity not on file) | | | | | | 204 | + +------+--------+ +--------+--------+--------+ + + | Description:Not Power | | Injectable, Progress record | | faxed from [facility] | | Hospital in [place], [place], | | [facility] RN | + + + +---+---+ +---+--------+--------+ | Slimtip DrgImplanted: Qty: 1 | | | [facility] | | 01/06/ | [id number] | | on 12/05/2018 by Daniel, | | | MEDICAL [place] | | 2020 | 0-50A | | Alex Alba MD,PhD at [facility] | | | | | | /[id number] | | INPATIENT REV LOC | | | | | | 371 / | + +---+---+ +---+--------+--------+ + + | Description:Level 4 | + + + +---+---+ +---+---+--------+ | Slimtip DrgImplanted: Qty: 1 | | | [facility] | | | [id number] | | on 12/05/2018 by Daniel, | | | MEDICAL [place] | | | 0-50A | | Alex Alba MD,PhD at [facility] | | | | | | /[id number] | | INPATIENT REV LOC | | [...] | Alex Alba MD,PhD at [facility] | | | | | | | [...] | | | | | | | [address] | | + +--------+ +--------+ + +--------+ | CONTINUITY WRITER MEDICAID | CONTINUITY WRITER | xxxxxxxx | 11/14/19 | | | [...] | 1990 | [phone] | [place] [address] | | | evita | | | [...]
--- OUTSIDE RECORDS SUMMARY | ~2020-06-23 | XMS | Encounter Summary ---
Demographics + + + | Address | [address] | | | [place] [address] | + + + | Home Phone [...] Team Providers + +------+ + | Care Motorized Squad Commanding Officer Name | Role | Phone | + +------+ + | Justo Vazquez MD | PCP | | + +------+ + Encounter Details +--------+ + + + + | Date | Type | Department | Care Team | Description | +--------+ + + + + | 01/26/ | Document-Sc | Health Information | Unknown . | | | 2017 | anned | Services [id number] | | | | | | [address] | | | | | | Mailcode: [id number] | | | | | | [facility] | | | | | | [place], [place] | | | | | | [address] | | | | | | [phone] | | | +--------+ + + + [...]
--- OUTSIDE RECORDS SUMMARY | ~2020-06-23 | XMS | Encounter Summary ---
Demographics + + + | Address | [address] | | | [place] [address] | + + + | Home Phone [...] Team Providers + +------+ + | Care Partner Name | Role | Phone | + [...] with nausea | [address] | Rd [place], | | | | | Complex | Rd | [place] | | | | | regional | [place], [place] | [address] | | | | | pain | [address] | Phone: | | | | | syndrome | Phone: | [phone] | | | | | type 1 of | [phone] | Fax: | | | | | left lower | Fax: | [phone] | | | | | extremity | [phone] | | | | | | Procedures [...] | | | | | unspecified | [facility] | [address] | | | | | location | Rd | [facility] | | | | | Procedures | [place], [place] | Rd [place], | | | | | CONSULT TO | [address] | [place] | | | | | PAIN | | [address] | | | | | MANAGEMENT | | Phone: | | | | | | | [phone] | | | | | | | Fax: | | | | | | | [phone] | +--------+--------+ + + + + Encounter Details +--------+---------+ + + + | Date | Type | Department | Care Team | Description | +--------+---------+ + + + | 04/19/ | Office | [facility] [place] | Alex Sanchez, | Intractable cyclical | | 2018 | Visit | Pain Center at | ,PhD [address] | vomiting with | | | | [facility] | [address] | nausea (Primary Dx); | | | | [address] | [place], [place] | Complex regional | | | | [place] [facility] | [address] | pain syndrome type 1 | | | | and Healing, | [phone] | of left lower | | | | Building | | extremity | | | | Floor [facility] [place] | | | | | | [address] | | | | | | [phone] | | | +--------+---------+ + + + [...] might be differe nt from the original. [facility] Return Visit Date: 04/20/2018 [...] not help for the abdominal pain). PAINBRIEF: [facility] Brief Pain Inventory: (ten= worst possible [...] Hemroidectomy Trial spinal cord stimulator leads 08/02/2012 [facility], Surgeon: Janak Riojas MD Cholecystectomy Appendectomy [...] History Social History Narrative Single. Goes to [employer] with a light load. Has been working at [employer], can' t work on crpic5ches. Has roommates. Allergies Allergen Reactions Morphine Anaphylaxis [...] by physician. Concentration is 150mg/mL. Compounded by [facility] ) KETOROLAC IM Inject into the [...] to her by Christie Madrid MD in [place], [place]. As she chowdhury s since left the practice, Ms. Farah no longer has a prescriber for this medication. At [facility], we typically do not [...] unclear etiology. [facility], and is greatly helped by Toradol, antiemetics [...] Follow up as needed Alex Sanchez MD,PhD [facility] 3 :41 PM PDTSmithCharline [...]
--- OUTSIDE RECORDS SUMMARY | ~2020-06-23 | XMS | Encounter Summary ---
Demographics + + + | Address | [address] | | | [place] [address] | + + + | Home Phone [...] Team Providers + +------+ + | Care 7Th Grade Social Studies Teacher Name | Role | Phone | [...] + + | 09/14/ | Telephone | [facility] [place] | Alex Sanchez, | Education procedure | | 2018 | | Pain Center at | ,PhD [address] | (preprocedure | | | | [facility] | [facility] [address] | education SCS) | | | | [address] | [place], [place] | | | | | [facility] | [address] | | | | | and Healing, | [phone] | | | | | | | | | | | Floor [place], [place] | | | | | | [address] | | | | | | [phone] | | | +--------+ + + + [...]
--- OUTSIDE RECORDS SUMMARY | ~2020-06-23 | XMS | Encounter Summary ---
Demographics + + + | Address | [address] | | | [place] [address] | + + + | Home Phone [...] Team Providers + +------+ + | Care Laboratory Engineer Name | Role | Phone | + +------+ + | Justo Vazquez MD | PCP | | + +------+ + Encounter Details +--------+ + + + + | Date | Type | Department | Care Team | Description | +--------+ + + + + | 01/26/ | Document-Sc | Health Information | Unknown . | | | 2017 | anned | Services [id number] | | | | | | [address] | | | | | | Mailcode: [id number] | | | | | | [facility] | | | | | | [place], [place] | | | | | | [address] | | | | | | [phone] | | | +--------+ + + + [...]
--- OUTSIDE RECORDS SUMMARY | ~2020-06-23 | XMS | Encounter Summary ---
Demographics + + + | Address | [address] | | | [place] [address] | + + + | Home Phone [...] | Organization | [facility] | | | and [place] [...] [place] | | | | | [address] | | + + + + + | Bryant Farah | ECON | Unknown | | + + + + + Care Team Providers + +------+ + | Care Landscape Management Technician Name | Role | Phone | + +------+ + PCP | Unavailable | + +------+ + Encounter Details +--------+ + + + + | Date | Type | Department | Care Team | Description | +--------+ + + + + | 03/16/ | Hospital | [facility] | Conversion | Back pain | | 2013 | Encounter | CONVERSION [address] | Transaction, | | | | | [address] | Provider Unknown | | | | | [place], [place] | [phone] | | | | | [address] | | | | | | [phone] | | | +--------+ + + + [...]
--- OUTSIDE RECORDS SUMMARY | ~2020-06-23 | XMS | Encounter Summary ---
Demographics + + + | Address | [address] | | | [place] [address] | + + + | Home Phone [...] Team Providers + +------+ + | Care Long Term Care Pharmacist Name | Role | Phone | + +------+ + | Justo Vazquez MD | PCP | | + +------+ + Encounter Details +--------+ + + + + | Date | Type | Department | Care Team | Description | +--------+ + + + + | 03/11/ | Telephone | [facility] | Zeeshan Mahoney MD | | | 2019 | | Pain Center at | [address] | | | | | [facility] | [facility], | | | | | [address] | [place] [address] | | | | | [place] for [facility] | [phone] | | | | | and Healing, | | | | | | | | | | | | [place], [place] | | | | | | [address] | | | | | | [phone] | | | +--------+ + + + [...]
--- OUTSIDE RECORDS SUMMARY | ~2020-06-23 | XMS | Encounter Summary ---
Demographics + + + | Address | [address] | | | [place] [address] | + + + | Home Phone [...] + +------+ + | Care Director Of Exhibit Development Name | Role | Phone | [...] + + | 12/05/ | Hospital | [facility] | Alex Sanchez, | | | 2019 | Encounter | STAY [address] | ,PhD [address] [facility] | | | | | Courtney Mailcode: [facility] | [address] | | | | | [place] [facility] | [place], [place] | | | | | Health and [facility], | [address] | | | | | [place] [address] | [phone] | | | | | [place], [place] | | | | | | [address] | | | | | | [phone] | | | +--------+ + + + [...] s/p successful DRG trial lead system with Video Recruit System on 09/25/2018. No changes in H&P, [...] OPERATIVE NOTE Date: December 05, 2018 Location: [facility] [place] | | | Tracie Farah [id number] :1990, presents to clinic | | | for: Dorsal root ganglion stimulator implant PROCEDURE: Dorsal | | | root ganglion stimulator implant PRE-OPERATIVE DIAGNOSIS: Complex | | | regional Pain syndrome type 1 of left lower extremity | | | POST-OPERATIVE DIAGNOSIS: Complex regional Pain syndrome type 1 of | | | left lower extremity ATTENDING PHYSICIAN: Alex Sanchez | | | INDUSTRIAL SAFETY AND HEALTH TECHNICIAN: Arben Valerio MD ANESTHESIA: sedation by IVIS Cole | | | Carmen, supervised by bilingual patient support caseworker Ilir Valdes. | | | FINDINGS: Appropriate [...] sedation. Ms. Farah was escorted to the [facility] | | | [place], where she [...] to the | | | St [employer] signs sales representative. A test stimulation was performed [...] recovery. Images were saved, and sent to [employer]. | | | Alex Sanchez (attending) was present for the entire procedure. | | | Arben Valerio MD I was present for the entire procedure | | | (spinal cord stimulator implantation with DRG leads at left L4 and | | | L5) and all bocanegra elements of this visit. I reviewed the | | | documentation of the other SORT LINE WORKER providers and concur with Dr. | | | Iman's findings. I edited his note. Alex Sanchez, | | | ,PhD Foot Miter Operator Anesthesiology and Pain Management | | | [facility] | | + + + HCG URINE, [...] + + | JOSE ANTONIO MIN | [address] [facility] | [place] [address] | | | OF CARE TESTS | [...]
--- OUTSIDE RECORDS SUMMARY | ~2020-06-23 | XMS | Encounter Summary ---
Demographics + + + | Address | [address] | | | [place] [address] | + + + | Home Phone [...] Team Providers + +------+ + | Care Generator Repairer Name | Role | Phone | [...] [address] | | | | | [facility] | [facility], | | | | | [address] | [place] [address] | | | | | [facility] | [phone] | | | | | and Healing, | | | | | | Building | | | | | | [place], [place] | | | | | | [address] | | | | | | [phone] | | | +--------+ + + + [...]
--- OUTSIDE RECORDS SUMMARY | ~2020-06-23 | XMS | Encounter Summary ---
Demographics + + + | Address | [address] | | | [place] [address] | + + + | Home Phone [...] Providers + +------+ + | Care Sales Representative Girls' Apparel Name | Role | Phone | + [...] | | Pain Center at | ,PhD [address] | denied) | | | | [facility] | [facility] | | | | | [address] | [place], [place] | | | | | [facility] | [address] | | | | | and [place], | [phone] | | | | | [facility] | | | | | | Floor [place], [place] | | | | | | [address] | | | | | | [phone] | | | +--------+ + + + [...]
--- OUTSIDE RECORDS SUMMARY | ~2020-06-23 | XMS | Encounter Summary ---
Demographics + + + | Address | [address] | | | [place] [address] | + + + | Home Phone [...] Providers + +------+ + | Care Metal Casket Maker Name | Role | Phone | [...] CRPS | Janak Martinez MD | [address] | | | | Management | (complex | [address] | | | | | regional | [address] | Center for | | | | | pain | [place] | Health and | | | | | syndrome), | [id number] | Healing, | | | | | lower limb | [place], [place] | Building | | | | | Gait | [address] | 1,15th Floor | | | | | disturbance | Phone: | [place], [place] | | | | | Muscle pain | [phone] | [address] | | | | | Procedures | Fax: | Phone: | | | | | CONSULT TO | [phone] | [phone] | | | | | PAIN CENTER | | Fax: | | | | | | | [phone] | +--------+--------+ + + + + Encounter Details +--------+---------+ + + + | Date | Type | Department | Care Team | Description | +--------+---------+ + + + | 03/20/ | Office | [facility] at [facility] | Shelia Feldman, PhD | Unspecified | | 2011 | Visit | [address] | | adjustment reaction | | | | Center for Health | | (Primary Dx) | | | | and Healing, | | | | | | Building | | | | | | Floor [place], [place] | | | | | | [address] | | | | | | [phone] | | | +--------+---------+ + + + [...] [facility] Name: Tracie Farah MR#: [id number] Date of : 1990 Date: March 20, 2012 Attending Psychologist: SHELIA FELDMAN, PHD CPT: 36197 Duration: 60min Psych: 309.0 Pain: 355.71 Tracie arrived on time for today's appointment, casually dressed and neatly groomed. Affect was appropriate, mood normothymic. She drove herself today and used crutches. She stated t hat she was doing "better", mainly because she has returned to work at [employer]. She is wo rking about 2 hour shifts; her pain is flared during work but she feels good because she is engaging in life and also is earning money. She reported that she has been cutting down on her pain medication because she wants to improve cognition (currently taking 1-2 daily at [facility] for [facility]). She notes that she [...] discretion, not currently planned. SHELIA FELDMAN, PHD Construction Or Leak Gang Laborer Licensed Clinical Psychologist [facility] Department of Anesthesiology & Perioperative Medicine [facility] [address] [place], [place] [id number] Historical Information: Introduction: Tracie Farah is a 21-year-old woman with >5 year hx of CRPS, R LE.S ocial & Psychiatric History: Tracie Farah lives in [place] in a shared apartment space. She has struggled wi th CRPS for at least 5 years; original injury to her foot was in 2001. In summer 2010 she h ad inpt pain tx at [facility] with limited group home benefit. Recent flare; [...] She learned some pain management techniques at [facility], mainly DB and PMR, which [...] Travel is a barrier; she lives in [place] DSM-IV Diagnoses/Impressions: [place] I: 1. 309.9 Unspecified Adjustment Reaction 2. 780.50 Sleep Disturbance [place] II: Deferred. [place] III: Patient Active Problem List Diagnoses CRPS (complex regional pain syndrome), lower limb Gait disturbance Muscle pain Adjustment reaction [place] IV: CRPS pain, pain related debility;difficulty attending class, working; family stres s; stalker ex-bf [place] V: Global Assessment of Functioning = 75 [...] me should questions arise. SHELIA FELDMAN, PHD Construction Or Leak Gang Laborer Licensed Clinical Psychologist [facility] Department of Anesthesiology & Perioperative Medicine [facility] [address] [place] [address] documented in this enc ounter Plan of Treatment Not on filedocumented as of this encounter Visit Diagnoses + + | Diagnosis | + + | Unspecified adjustment reaction - Primary | + + documented in this encounter
--- OUTSIDE RECORDS SUMMARY | ~2020-06-23 | XMS | Encounter Summary ---
Demographics + + + | Address | [address] | | | [place] [address] | + + + | Home Phone [...] Team Providers + +------+ + | Care Gravity Meter Observer Name | Role | Phone | + +------+ + | Justo Vazquez MD | PCP | | + +------+ + Encounter Details +--------+ + + + + | Date | Type | Department | Care Team | Description | +--------+ + + + + | 09/25/ | Hospital | Radiology/Imaging | Aleta Rebollar MD [address] | | | 2018 | Encounter | Lab at [facility] [address] | | | | | [address] [facility] for | [place], [place] | | | | | Health and Healing, | [address] | | | | | [address] | [phone] | | | | | Floor [place], [place] | | | | | | [address] | | | | | | [phone] | | | +--------+ + + + [...]
--- OUTSIDE RECORDS SUMMARY | ~2020-06-23 | XMS | Encounter Summary ---
Demographics + + + | Address | [address] | | | [place] [address] | + + + | Home Phone [...] Providers + +------+ + | Care Chief Nursing Officer Name | Role | Phone | [...] | | | | | syndrome | [facility] | [facility] | | | | | type 1 of | Rd | Rd [place], | | | | | left lower | [facility] [place] | [place] | | | | | extremity | [address] | [address] | | | | | Muscle pain | Phone: | Phone: | | | | | Procedures | [phone] | [phone] | | | | | REQUEST TO | Fax: | Fax: | | | | | SURGERY | [phone] | [phone] | | | | | ORDNANCE ARTIFICER HELPER | | | +--------+---------+ + + + [...] | syndrome | [address] | | | | | type 1 of | Rd | Rd [place], | | | | | left lower | [place], [place] | [place] | | | | | extremity | [address] | [address] | | | | | Muscle pain | Phone: | Phone: | | | | | Procedures | [phone] | [phone] | | | | | REQUEST TO | Fax: | Fax: | | | | | SURGERY | [phone] | [phone] | | | | | ORDNANCE ARTIFICER HELPER | | | | | | | OK INJ,ANES | | | | | | | AGENT,SCIATI | | | | | | | C | | | | | | | NERVE,SINGLE | | | | | | | OK INJECT | | | | | | | NERV | | | | | | | BLCK,OTHR | | | | | | | PERIPH NERV | | | | | | | OK SONO | | | | | | | GUIDE FOR | | | | | | | NEEDLE | | | | | | | PLACEMENT | | | | | | | OK MOD | | | | | | | SEDATION | | | | | | | >=5YRS SAME | | | | | | | MD/QUAL | | | | | | | PROV; INIT | | | | | | | 15 MIN OK | | | | | | | [...] | | | | | Procedures | [facility] [place] | [facility], | | | | | CONSULT TO | [address] | [place] | | | | | PAIN | | [address] | | | | | MANAGEMENT | | Phone: | | | | | | | [phone] | | | | | | | Fax: | | | | | | | [phone] | +--------+--------+ + + + + Encounter Details +--------+---------+ + + + | Date | Type | Department | Care Team | Description | +--------+---------+ + + + | 12/14/ | Office | [facility] | Alex Sanchez, | Complex regional | | 2018 | Visit | Pain Center at | ,PhD [address] | pain syndrome type 1 | | | | [facility] | [facility] [address] | of left lower | | | | [address] | [place], [place] | extremity (Primary | | | | [place] [facility] | [address] | Dx); Muscle pain; | | | | and Healing, | [phone] | Pain of upper | | | | | | abdomen | | | | Floor [place], [place] | | | | | | [address] | | | | | | [phone] | | | +--------+---------+ + + + [...] the time to see us in the [facility]. It was [...] make sure this is scheduled with the Installer Technician. PRE-PROCEDURE INSTRUCTIONS 1. Please bring a motor vehicle escort driver with you as we may give you medications that impair your ability to drive. This is necessary even if you do not receive sedation. You may take a taxi or Ker[place]ar if you are accompanied by a responsible [...] or blood thinning medications (other than aspirin), [facility] doctor who is doing your procedure will communicate with the provider who is prescribing y our anticoagulant therapy. If you do not have clear instructions on what to do with your an ticoagulant by 2 weeks before your procedure, please contact [facility] to cl arify your instructions. The phone number for questions or concerns is [phone]. documented in this encounter Progress Notes Charline [...] M D,PhD - 12/14/2017 10:25 AM PST [facility] Return Visit Date: 12/14/2017 Chief Complaint Patient presents with Back pain Low back pain Abdominal pain Pain in right leg Pain in left leg History of Present Illness: Tracie Farah is a 27 year old female, whose last appoi ntment at the [facility] [place] was October 11, 2017, for a clinic [...] review treatment plan. * Follow up with [facility] as needed. Today, she [...] was treated by Christie Madrid MD in [place], [place] for three years before she abruptly ended her practice due to illness. This left her without a doctor to help her manage her chronic pain. In addition to her CRPS symptoms (diagnosed 2010), she has some sto mach issues that she has been working with Ilene Childs DNP, EPIDEMIOLOGY INTERN-C. She has a scar on her stomach [...] a lot of great improvements while in [place], [place]. Weaning her off of the narcotic [...] her medical history that she spent in [place] where she part ook in a [...] Spinal cord stimulator trial - Nerve blocks INGOT STRIPPER Brief Pain Inventory: (ten= worst possible pain [...] Trial spinal cord stimulator leads 08/02/2012 [facility], Surgeon: Janak Riojas MD Cholecystectomy Appendectomy [...] History Social History Narrative Single. Goes to [employer] with a light load. Has been working at [employer], can' t work on [employer]ea [employer]. Has roommates. Allergies Allergen Reactions Morphine [...] by physician. Concentration is 150mg/mL. Compounded by [facility] ( [phone]) LAMOTRIGINE 200 MG TABLET Take 1 tablet [...] SOLUTION Take as directed by [facility] Digestive [facility]- 2 gallon bowel prep POLYETHYLENE GLYCOL [...] and summary of old medical records (source: [employer]), as summarized in the body of the [...] to her by Christie Madrid MD in [place], [place]. As she has since left the [...] today. I jacqueline poon spoken with our certified medical aide, Evelia Gonzalez MD who agrees that as [...] peripheral nerve stimulation. As she lives in [place], [place] with her family (3.5 hours away), [...] by Sonia Key. Alex Sanchez MD PhD Pharmaceutical Operator Anesthesiology and Pain Management [facility] Post visit: I reviewed the UDS, [...] CENTER, [place] | [address] | [place] [address] | | | SERVICES, CORE | GUILLERMO [...]
--- OUTSIDE RECORDS SUMMARY | ~2020-06-23 | XMS | Encounter Summary ---
Demographics + + + | Address | [address] | | | [place] [address] | + + + | Home Phone [...] Providers + +------+ + | Care Superintendent Compressor Stations Name | Role | Phone | + [...] | | 2016 | | Center at [facility] [address] | MD Melissa | | | | | [address] | | | | | | for Health and | | | | | | Healing, Building [address] | | | | | | [place], [place] | | | | | | [address] | | | | | | [phone] | | | +--------+ + + + [...]
--- OUTSIDE RECORDS SUMMARY | ~2020-06-23 | XMS | Encounter Summary ---
Demographics + + + | Address | [address] | | | [place] [address] | + + + | Home Phone [...] Team Providers + +------+ + | Care Echo Vasc Tech Name | Role | Phone | [...] ogy | | Ava Torres, | [address] | | | | | Constipation | [address] | | | | | , | [address] | [place] for | | | | | unspecified | [address] | Health and | | | | | constipation | [facility] [place] | Healing, | | | | | type | [address] | [address] | | | | | Procedures | | [place], [place] | | | | | CONSULT TO | | [address] | | | | | GI PROCEDURE | | Phone: | | | | | UNIT: | | [phone] | | | | | ANORECTAL | | Fax: | | | | | MANOMETRY | | [phone] | | | | | IA ANAL | | | | | | | PRESSURE | | | | | | | RECORD | | | +--------+--------+ + + + + Encounter Details +--------+ + + + + | Date | Type | Department | Care Team | Description | +--------+ + + + + | 09/14/ | Hospital | [facility] | Nurse, Gip [address] | | | 2016 | Encounter | [facility] [address] [facility] | | | | | [facility] for | Road [place], [place] | | | | | Health and Healing, | [address] | | | | | Building [address] | | | | | | [place], [place] | | | | | | [address] | | | | | | [phone] | | | +--------+ + + + [...]
--- OUTSIDE RECORDS SUMMARY | ~2020-06-23 | XMS | Encounter Summary ---
Demographics + + + | Address | [address] | | | [place] [address] | + + + | Home Phone [...] Team Providers + +------+ + | Care Chemical Plant Operator Name | Role | Phone [...] | Procedures | [place] | [facility], | | | | | CONSULT TO | [address] | [place] | | | | | PAIN | | [address] | | | | | MANAGEMENT | | Phone: | | | | | | | [phone] | | | | | | | Fax: | | | | | | | [phone] | +--------+--------+ + + + + Encounter Details +--------+---------+ + + + | Date | Type | Department | Care Team | Description | +--------+---------+ + + + | 04/23/ | Office | Pain Center at [facility] | Alex Sanchez, | Complex regional | | 2019 | Visit | [address] | ,PhD [address] [facility] | pain syndrome type 1 | | | | [facility] | [address] | of left lower | | | | and Healing, | [place], [place] | extremity (Primary | | | | Building | [address] | Dx); Other chronic | | | | Floor [place], [place] | [phone] | pain ; S/P insertion | | | | [address] | | of spinal cord | | | | [phone] | | stimulator | +--------+---------+ + + [...] time to see us in the [facility]. It was great to s ee you. Below is a summary of the discussion that we had today: - I will provide you with a prescription for oxycodone to use only for your monthly pain fl garo. - We reviewed and signed an opioid agreement today. - Please visit the lab on the 1st floor of [facility] to provide a urine sample for a [...] fox in our notes. Alex Sanchez MD,PhD [facility] by Alex Sanchez MD,PhD at [...] Aleta Lam MD - 1:00 PM PDT [facility] Return Visit Date: 04/23/2019 Chief Complaint Patient presents with Pain in left leg from the knee downl Back pain where battery pack is located History of Present Illness: Tracie Farah is a 28 year old female, whose last appoi ntment at the [facility] was December 22, 2018, [...] leg pain due to the boone that [facility] has in place. She is looking into [...] - DRG Spinal cord stimulator trial with GreenDot Trans system (09/25/2018) with 30-40% im provement of typical pain with significant improvement in mobility and function - Left popliteal/sciatic nerve injection AND abdominal scar trigger point injection ( 018) - Spinal cord stimulator trial with GreenDot Trans system by aJnak Riojas MD (08/02/2012) - Left L3 lumbar sympathetic block by Janak Riojas MD (03/01/2012) Opioid Risk Tool (ORT) 04/23/2019 [facility] Brief Pain Inventory: (ten= worst [...] Hemroidectomy Trial spinal cord stimulator leads 08/02/2012 [employer] Trans, Surgeon: Janak Riojas MD Cholecystectomy Appendectomy Other [...] History Social History Narrative Single. Goes to [employer] with a light load. Has been working at [employer], can' t work on [employer]. Has roommates. Allergies Allergen Reactions Morphine Anaphylaxis [...] GRAM SOLUTION Take as directed by [facility] Digestive Health- 2 gallon bowel prep [...] nausea Abdominal pain Abdominal scar neuroma [facility] CLINICAL PROTOCOL PATIENT (CLNPRO) - Implanted [...] and summary of old medical records (source: [employer]), as summarized in the body of the [...] We performed DRG SCS trial with the [employer] System on 09/25/2018 which provided her with [...] ago. She has not spoken with the [employer] representatives about this. I encouraged her to [...] Key. Aleta Rebollar MD [facility] 15TH FLOOR [address] [facility] Mail Code: Ch15p [place] [id number] do cumented in this encounter Plan of [...] + + + + + | [facility] | [address] | [place] [address] | | | SERVICES, CORE | GUILLERMO [...]
--- OUTSIDE RECORDS SUMMARY | ~2020-06-23 | XMS | Encounter Summary ---
Demographics + + + | Address | [address] | | | [place] [address] | + + + | Home Phone [...] Providers + +------+ + | Care Dental Office Coordinator Name | Role | Phone | [...] 2015 | | Center at [facility] [address] | MD Melissa | | | | | [address] [facility] | | | | | | for Health and | | | | | | [facility], Building [address] | | | | | | [place], [place] | | | | | | [address] | | | | | | [phone] | | | +--------+ + + + [...]
--- OUTSIDE RECORDS SUMMARY | ~2020-06-23 | XMS | Encounter Summary ---
Demographics + + + | Address | [address] | | | [place] [address] | + + + | Home Phone [...] Team Providers + +------+ + | Care Statistics Tutor Name | Role | Phone | [...] | Diagnoses | Beulah | Edu Pt Surveillance Operator | | | | Therapy | CRPS | Janak Martinez MD | [address] | | | | | (complex | [address] | | | | | regional | [address] | Mailcode: | | | | | pain | Mailstop | [facility] | | | | | syndrome), | [id number] | for Health | | | | | lower limb | [place], [place] | and Healing, | | | | | Gait | [address] | [address] | | | | | disturbance | Phone: | [place], [place] | | | | | Muscle pain | [phone] | [address] | | | | | Procedures | Fax: | Phone: | | | | | PHYSICAL | [phone] | [phone] | | | | | THERAPY | [...] regional pain | | | | [facility] | [place] [address] | syndrome), lower | | | | [address] | [phone] | limb (Primary Dx) | | | | [facility] | | | | | | and Healing, | Specialist, Edu | | | | | Building 1, 1st | Exercise [address] | | | | | Floor [place], [place] | [address] [place], | | | | | [address] | [place] [address] | | | | | [phone] | | | +--------+---------+ + + + [...] might be different f rom the original. [id number] BRODY FARAH Date of : 1990 Start of care: 02/14/2012 Date of onset: 02/14/2012 Referring/Attending Practitioner: Janak Riojas MD . Primary/Referral Diagnosis/ICD-9: 355.71B CRPS (complex regional pain syndrome), lower limb Insurance: Payor: [facility] Plan: BCBS OUT OF STATE Product Type: PP O Service period from: 02/14/2012 to: 08/12/2012 Number visits used/authorized: 02/23 [facility] PHYSICAL THERAPY PROGRESS NOTE SUBJECTIVE: Age: [...] local PT . History of Presenting Problems: Broyd Farah is a 21 y.o. female complaining [...] [facility] Mailcode: Ch3p [address] [facility], [address] [place] [phone] documented in this encounter Plan of Treatment Not on filedocumented as of this encounter Procedures + +--------+ + + + | Procedure Name | Priori | Date/Time | Associated Diagnosis | Comments | | | ty | | | | + +--------+ + + + | AK THERAPEUTIC | Routin | 05/24/2012 | CRPS (complex | | | EXERCISES | e | 6:23 PM | regional pain | | | | | PDT | syndrome), lower | | | | | | limb | | + +--------+ + + + | AK THERAPEUTIC | Routin | 05/24/2012 | CRPS [...]
--- OUTSIDE RECORDS SUMMARY | ~2020-06-23 | XMS | Encounter Summary ---
Demographics + + + | Address | [address] | | | [place] [address] | + + + | Home Phone [...] Providers + +------+ + | Care Interior Decorator Paperhanging Name | Role | Phone | + [...] | | | regional | [place] | [address] | | | | | pain | FAMILY | Mailstop | | | | | syndrome), | MEDICINE P | [address] | | | | | lower limb | [address] | [place], [place] | | | | | Gait | [place], | [address] | | | | | disturbance | [place] [address] | Phone: | | | | | Muscle pain | Phone: | [phone] | | | | | Procedures | [phone] | Fax: | | | | | REQUEST TO | Fax: | [phone] | | | | | SURGERY | [phone] | | | | | | ORACLE PROGRAMMER ANALYST | | | +--------+--------+ + + + + Encounter Details +--------+ + + + + | Date | Type | Department | Care Team | Description | +--------+ + + + + | 03/01/ | Procedure | Pain Center at [facility] | Dale Cantu, | Foot pain (left); | | 2011 | | [address] | [address] | Procedure | | | | Center for Health | [address] [id number] | | | | | and Healing, | [place], [place] | | | | | [facility] | [address] | | | | | Floor [place], [place] | [phone] | | | | | [address] | | | | | | [phone] | | | +--------+ + + + [...] migh t be different from the original. [facility] Patient Instructions - Post Interventional Procedure Date: 03/01/2012 Name: Tracie Farah Date of : 1990 Procedure Performed: LUMBAR SYMPATHETIC BLOCK. Procedure Provider: Dale Cantu If you have any problems you believe are associated with your procedure tonight, Please call the Hospital Inspector Casing, and ask for the Pain Management Consu ltant. If you have problems or questions between 9:00 am and 4:00 pm, Please call the [facility] Nurse Triage Line, . If you [...] to the larry ent. LAKEISHA HERRING MD [facility] documented in this encounter Progress Notes Dale Cantu MD - 03/01/2012 2:21 PM PDTI was present for the entire procedure (lumbar sympathetic block) and all bocanegra elements of this visit. I reviewed the documentation of the other SUPERINTENDENT POLICE providers and concur with Dr. Herring's findings. [...] benefit from multidisciplinary treatment. DALE CANTU MD Edging Machine Setter, [facility] Commercial Construction Superintendent, Pain Medicine Professor, Anesthesiology & Perioperative Medicine NAEiDiana scott RN - 03/01/2012 1:35 PM PDT PRE-SEDATION: Date: March 01, 2012 Tracie Farah [id number] 1990 ALLERGIES: Morphine Previous reaction to Sedation/Analgesia: MEDICATIONS: Current Outpatient Prescriptions Medication DULoxetine (CYMBALTA) 30 mg Oral Capsule, Delayed Release(E.C.) HYDROcodone-acetaminophen (NORCO) 10-325 mg Oral Tablet levonorgestrel (MIRENA) 20 mcg/24 hr Intrauterine IUD LORazepam 1 mg Oral Tablet promethazine 25 mg Oral Tablet Meets NPO Guidelines. IV ACCESS: IV in Place IV Start Time 00896, 22g, DRH BASELINE VS: See Sedation Flow Sheet. Tracie Farah [id number] 1990, presents to clinic for: Procedure: Lumbar [...] ml. 1344: Procedure complete. Pt returned to [facility] 1 per man in stable condiotion. IV [...] OPERATIVE NOTE Date: March 01, 2012 Location: [facility] Procedure Room Tracie [facility] [id number] :1990, presents to clinic for: PROCEDURE: Lumbar sympathetic block LEVEL/LATERALITY: left L3 PRE-OPERATIVE DIAGNOSIS: 355.71B CRPS (complex regional pain syndrome), lower limb 719.46 Pain in joint, lower leg POST-OPERATIVE DIAGNOSIS: 355.71B CRPS (complex regional pain syndrome), lower limb 719.46 Pain in joint, lower leg ATTENDING PHYSICIAN: Dale Cantu BAKED AND GRAPHITE INSPECTOR: Fellow Lakeisha Herring MD ANESTHESIA: sedation delivered [...] sedation. Ms. Farah was escorted to the [facility] Procedure Ro om, where she was [...] compromise. Ms. Farah was [facility] post-procedure recovery area [...] block. Images were saved, and sent to [employer]. Ms. Farah will have her next appointment [...] + +--------+ + + + | [place] INJECT NERV | Routin | 03/01/2012 | CRPS (complex | | | BLCK,PARAVERT | e | 2:20 PM | regional pain | | | SYMPATH | | PDT | syndrome), lower | | | | | | limb Pain in joint, | | | | | | lower leg | | + +--------+ + + + | MI LOCM 100-199 | Routin | 03/01/2012 | CRPS (complex | | | MG/MLICON | e | 1:53 PM | regional pain | | | | | PDT | syndrome), lower | | | | | | limb Pain in joint, | | | | | | lower leg | | + +--------+ + + + | MI INJ BUPIVACAINE | Routin | 03/01/2012 | [...]
--- OUTSIDE RECORDS SUMMARY | ~2020-06-23 | XMS | Encounter Summary ---
Demographics + + + | Address | [address] | | | [place] [address] | + + + | Home Phone [...] Team Providers + +------+ + | Care Case Picker Name | Role | Phone | [...] (plan of care) | | | | [facility] | [address] | | | | | [address] | [place], [place] | | | | | [facility] | [address] | | | | | and Healing, | [phone] | | | | | | | | | | | Floor [place], [place] | | | | | | [address] | | | | | | [phone] | | | +--------+ + + + [...]
--- OUTSIDE RECORDS SUMMARY | ~2020-06-23 | XMS | Encounter Summary ---
Demographics + + + | Address | [address] | | | [place] [address] [...] Team Providers + +------+ + | Care Receptionist Secretary Name | Role | Phone | + [...] 2016 | | Pain Center at | TIMBER PACKER [address] | | | | | [facility] | [place], [place] | | | | | [address] | [address] | | | | | [facility] | [phone] | | | | | and Healing, | | | | | | Building | | | | | | [place], [place] | | | | | | [address] | | | | | | [phone] | | | +--------+ + + + [...]
--- OUTSIDE RECORDS SUMMARY | ~2020-06-23 | XMS | Encounter Summary ---
Demographics + + + | Address | [address] | | | [place] [address] | + + + | Home Phone [...] Team Providers + +------+ + | Care Orthotic Fitter Name | Role | Phone | [...] + + | 08/07/ | Refill | [facility] | Alex Sanchez, | Refill Request | | 2018 | | Pain Center at | ,PhD [address] | | | | | [facility] | [address] | | | | | [address] | [place], [place] | | | | | [facility] | [address] | | | | | and [place]ina, | [phone] | | | | | [facility] | | | | | | Floor [place], [place] | | | | | | [address] | | | | | | [phone] | | | +--------+--------+ + + + [...]
--- OUTSIDE RECORDS SUMMARY | ~2020-06-23 | XMS | Encounter Summary ---
Demographics + + + | Address | [address] | | | [place] [address] | + + + | Home Phone [...] Team Providers + +------+ + | Care Pavilion Cutter Name | Role | Phone | [...] Rd | | | | | | [place], [place] | | | | | | [address] | | | +--------+ + + + [...]
--- OUTSIDE RECORDS SUMMARY | ~2020-06-23 | XMS | Encounter Summary ---
Demographics + + + | Address | [address] | | | [place] [address] | + + + | Home Phone [...] Providers + +------+ + | Care Marine Engineering Technicians Name | Role | Phone | + [...] | | | | [address] [place] | [facility] [place] | | | | | for Health and | [address] | | | | | Healing, [address] | [phone] | | | | | [place], [place] | | | | | | [address] | | | | | | [phone] | | | +--------+ + + + [...]
--- OUTSIDE RECORDS SUMMARY | ~2020-06-23 | XMS | Encounter Summary ---
Demographics + + + | Address | [address] | | | [place] [address] | + + + | Home Phone [...] Team Providers + +------+ + | Care Piano Regulator Name | Role | Phone | + [...] | Pain Center at | [address] | | | | | [facility] | [facility] [address] | | | | | [address] | [place], [place] | | | | | Center for Health | [address] | | | | | and Healing, | [phone] | | | | | [facility] | | | | | | Floor [place], [place] | | | | | | [address] | | | | | | [phone] | | | +--------+ + + + [...]
--- OUTSIDE RECORDS SUMMARY | ~2020-06-23 | XMS | Encounter Summary ---
Demographics + + + | Address | [address] | | | [place] [address] | + + + | Home Phone [...] + +------+ + | Care Environmental Health Sanitarian Name | Role | Phone | + [...] 2016 | | Pain Center at | SALES MANAGER [employer] [address] | | | | | [facility] | [place], [place] | | | | | [address] | [address] | | | | | [facility] | [phone] | | | | | and Healing, | | | | | | [facility] | | | | | | [place], [place] | | | | | | [address] | | | | | | [phone] | | | +--------+ + + + [...]
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
--- OUTSIDE RECORDS SUMMARY | ~2020-06-23 | XMS | Encounter Summary ---
Demographics + + + | Address | [address] | | | [place] [address] | + + + | Home Phone [...] + +------+ + | Care Director Of Early Childhood Education Name | Role | Phone | + [...] | 2015 | Encounter | Center at [facility] [address] | MD Melissa | | | | | [address] [facility] | | | | | | for Health and | | | | | | Healing, Building [address] | | | | | | [place], [place] | | | | | | [address] | | | | | | [phone] | | | +--------+ + + + [...]
--- OUTSIDE RECORDS SUMMARY | ~2020-06-23 | XMS | Clinical Summary ---
Demographics + + + | Address | [address] | | | [place] [address] | + + + | Home Phone [...] | Author | [facility] | + + + | Organization | [facility] | + + + | Address | Unknown | + + + | Phone | Unavailable | + + + Support + + +---------+ + | Name | Relationship | Address | Phone | + + +---------+ + | Patricia Colin | ECON | Unknown | | + + +---------+ + Care Team Providers + +------+ + | Care Clinical Informaticist Name | Role | Phone | + +------+ + | Justo Vazquez MD | PCP | | + +------+ + Source Comments KEVIN is fully live on both [facility] Ambulatory and [facility] InPatient.[facility] Allergies + + + + + [...] Noted Date | + + + | [facility] CLINICAL PROTOCOL PATIENT (PETER) - Implanted Spinal Cord | 12/14/2018 | | Stimulator | | + + + + + | Overview: Patient has an implanted Givespark spinal | | cord stimulator. Model#: [id number]. Contact [phone] for | | technical assistance.Contraindications:Sources of strong [...] | Right: | BARD | | | [id number] | | Port-10/05/2016Implanted: | | Chest | | | | 0 / | | 10/05/2016 by Obdulio Simpson, | | | | | | /VIKY | | (Quantity not on file) | | | | | | 204 | + +------+--------+ +--------+--------+--------+ + + | Description:Not Power | | Injectable, Progress record | | faxed from [facility] | | Hospital in [place], [place], | | [facility] RN | + + + +---+---+ +---+--------+--------+ | Slimtip DrgImplanted: Qty: 1 | | | [facility] JESSICA | | 01/06/ | [id number] | | on 12/05/2018 by Daniel, | | | MEDICAL SC | | 2020 | 0-50A | | Alex Alba MD,PhD at [facility] | | | | | | /[id number] | | INPATIENT REV LOC | | | | | | 371 / | + +---+---+ +---+--------+--------+ + + | Description:Level 4 | + + + +---+---+ +---+---+--------+ | Slimtip DrgImplanted: Qty: 1 | | | ST JESSICA | | | [id number] | | on 12/05/2018 by Daniel, | | | MEDICAL SC | | | 0-50A | | Alex Alba MD,PhD at [facility] | | | | | | /[id number] | | INPATIENT REV LOC | | [...] / | | Alex Alba MD,PhD at [facility] | | | | | | [...] | | | | | | | [address] | | + +--------+ +--------+ + +--------+ | CONSTRUCTION CONTRACTOR MEDICAID | CONSTRUCTION CONTRACTOR | xxxxxxxx | 11/14/19 | | | [...] | 1990 | [phone] | [place] [address] | | | evita | | | [...]
--- OUTSIDE RECORDS SUMMARY | ~2020-06-23 | XMS | Encounter Summary ---
Demographics + + + | Address | [address] | | | [place] [address] | + + + | Home Phone [...] Team Providers + +------+ + | Care Administrative Specialist Name | Role | Phone | [...] | Request (ketamine) | | | | [facility] | [address] | | | | | [address] | [place], [place] | | | | | [facility] | [address] | | | | | and Healing, | [phone] | | | | | | | | | | | Floor [place], [place] | | | | | | [address] | | | | | | [phone] | | | +--------+ + + + [...]
--- OUTSIDE RECORDS SUMMARY | ~2020-06-23 | XMS | Encounter Summary ---
Demographics + + + | Address | [address] | | | [place] [address] | + + + | Home Phone [...] Providers + +------+ + | Care Assistant Child Care Teacher Name | Role | Phone | [...] CRPS | Janak Martinez MD | [facility] [address] | | | | Management | (complex | [address] | | | | | regional | [address] | Center for | | | | | pain | [facility] | Health and | | | | | syndrome), | [id number] | Healing, | | | | | lower limb | [place], [place] | Building | | | | | Gait | [address] | 1,15th Floor | | | | | disturbance | Phone: | [place], [place] | | | | | Muscle pain | [phone] | [address] | | | | | Procedures | Fax: | Phone: | | | | | CONSULT TO | [phone] | [phone] | | | | | PAIN CENTER | | Fax: | | | | | | | [phone] | +--------+--------+ + + + + Encounter Details +--------+---------+ + + + | Date | Type | Department | Care Team | Description | +--------+---------+ + + + | 03/20/ | Office | Pain Center at [facility] | Shelia Feldman, PhD | Unspecified | | 2011 | Visit | [address] | | adjustment reaction | | | | Center for Health | | (Primary Dx) | | | | and Healing, | | | | | | Building | | | | | | Floor [place], [place] | | | | | | [address] | | | | | | [phone] | | | +--------+---------+ + + + [...] as of this encounter Progress Notes Shelia Felmdan, PhD - 03/20/2012 3:27 PM PDT [facility] Name: Tracie Farah MR#: [id number] Date of : 1990 Date: March 20, 2012 Attending Psychologist: SHELIA FELDMAN, PHD CPT: 00534 Duration: 60min Psych: 309.0 Pain: 355.71 Tracie arrived on time for today's appointment, casually dressed and neatly groomed. Affect was appropriate, mood normothymic. She drove herself today and used crutches. She stated t hat she was doing "better", mainly because she has returned to work at [employer]. She is wo rking about 2 [...] discretion, not currently planned. SHELIA FELDMAN, PHD Operations Coordinator Licensed Clinical Psychologist [facility] [place] Department of Anesthesiology & Perioperative Medicine [facility] [address] [place], [place] [id number] Historical Information: Introduction: Tracie Farah is a 21-year-old woman with >5 year hx of CRPS, R LE.S ocial & Psychiatric History: Tracie Farah lives in [place] in a shared apartment space. She has struggled wi th CRPS for at least 5 years; original injury to her foot was in 2001. In summer 2010 she h ad inpt pain tx at [facility] with limited custodial benefit. Recent flare; she arrived using crutches [...] learned some pain management techniques at [facility], mainly DB and PMR, which she [...] Travel is a barrier; she lives in [place] DSM-IV Diagnoses/Impressions: [place] I: 1. 309.9 Unspecified Adjustment Reaction 2. 780.50 Sleep Disturbance [place] II: Deferred. [place] III: Patient Active Problem List Diagnoses CRPS (complex regional pain syndrome), lower limb Gait disturbance Muscle pain Adjustment reaction [place] IV: CRPS pain, pain related debility;difficulty attending class, working; family stres s; stalker ex-bf [place] V: Global Assessment of Functioning = 75 [...] me should questions arise. SHELIA FELDMAN, PHD Operations Coordinator Licensed Clinical Psychologist [facility] [place] Department of Anesthesiology & Perioperative Medicine [facility] [address] [place] [address] documented in this enc ounter Plan of Treatment Not on filedocumented as of this encounter Visit Diagnoses + + | Diagnosis | + + | Unspecified adjustment reaction - Primary | + + documented in this encounter
--- OUTSIDE RECORDS SUMMARY | ~2020-06-23 | XMS | Encounter Summary ---
Demographics + + + | Address | [address] | | | [place] [address] | + + + | Home Phone [...] Team Providers + +------+ + | Care Mechanic Marine Engine Name | Role | Phone | + +------+ + | Justo Vazquez MD | PCP | | + +------+ + Encounter Details +--------+ + + + + | Date | Type | Department | Care Team | Description | +--------+ + + + + | 01/02/ | Telephone | [facility] | Ilene Bright, | | | 2019 | | Pain Center at | BODY AND FENDER MECHANIC [address] | | | | | [facility] | [place], [place] | | | | | [address] | [address] | | | | | [place] for [facility] | [phone] | | | | | and Healing, | | | | | | | | | | | | Floor [place], [place] | | | | | | [address] | | | | | | [phone] | | | +--------+ + + + [...]
--- OUTSIDE RECORDS SUMMARY | ~2020-06-23 | XMS | Encounter Summary ---
Demographics + + + | Address | [address] | | | [place] [address] | + + + | Home Phone [...] Providers + +------+ + | Care Clinical Data Abstractor Name | Role | Phone | + +------+ + | Allegra Gandhi | PCP | | + +------+ + Encounter Details +--------+ + + + + | Date | Type | Department | Care Team | Description | +--------+ + + + + | 02/13/ | Outside | UNKNOWN DEPARTMENT | Other, Faculty | | | 2011 | Records | [address] [facility] | [phone] | | | | | [address] | | | | | | [place], [place] | | | | | | [address] | | | +--------+ + + + [...]
--- OUTSIDE RECORDS SUMMARY | ~2020-06-23 | XMS | Encounter Summary ---
Demographics + + + | Address | [address] | | | [place] [address] | + + + | Home Phone [...] Providers + +------+ + | Care Canine Service Instructor Trainer Name | Role | Phone | [...] | | 2016 | | Center at [facility] [address] | MD Melissa | | | | | [address] [place] | | | | | | for Health and | | | | | | Healing, [address] | | | | | | [place], [place] | | | | | | [address] | | | | | | [phone] | | | +--------+ + + + [...]
--- OUTSIDE RECORDS SUMMARY | ~2020-06-23 | XMS | Encounter Summary ---
Demographics + + + | Address | [address] | | | [place] [address] | + + + | Home Phone [...] Team Providers + +------+ + | Care Art Specialist Name | Role | Phone | [...] Oliveira | | 2011 | IP | [address] | | House - Approved | | | | [place], | | | | | | [place] [address] | | | +--------+ + + + [...]
--- OUTSIDE RECORDS SUMMARY | ~2020-06-23 | XMS | Encounter Summary ---
Demographics + + + | Address | [address] | | | [place] [address] | + + + | Home Phone [...] Team Providers + +------+ + | Care Spring Salvage Worker Name | Role | Phone | [...] | Lab at [facility] [address] | ,PhD [address] [facility] | | | | | [facility] for | [facility] | | | | | Health and [facility], | [place], [place] | | | | | [place] [address] [facility] | [address] | | | | | Floor [place], [place] | [phone] | | | | | [address] | | | | | | [phone] | | | +--------+ + + + [...]
--- OUTSIDE RECORDS SUMMARY | ~2020-06-23 | XMS | Encounter Summary ---
Demographics + + + | Address | [address] | | | [place] [address] | + + + | Home Phone [...] Providers + +------+ + | Care Rn Endoscopy Name | Role | Phone | + [...] + | 08/07/ | Refill | [facility] Comprehensive | Alex Sanchez, | Refill Request | | 2018 | | Pain Center at | ,PhD [address] | | | | | [facility] | [address] | | | | | [address] | [place], [place] | | | | | [facility] | [address] | | | | | and [place], | [phone] | | | | | [facility] | | | | | | Floor [place], [place] | | | | | | [address] | | | | | | [phone] | | | +--------+--------+ + + + [...]
--- OUTSIDE RECORDS SUMMARY | ~2020-06-23 | XMS | Encounter Summary ---
Demographics + + + | Address | [address] | | | [place] [address] | + + + | Home Phone [...] + +------+ + | Care Senior Technical Architect Name | Role | Phone [...] | | | | | extremity | [address] | [address] | | | | | Muscle pain | Phone: | Phone: | | | | | Procedures | [phone] | [phone] | | | | | REQUEST TO | Fax: | Fax: | | | | | SURGERY | [phone] | [phone] | | | | | PEARL TECHNICIAN | | | | | | | DC INJ,ANES | | | | | | | AGENT,SCIATI | | | | | | | C | | | | | | | NERVE,SINGLE | | | | | | | DC INJECT | | | | | | | NERV | | | | | | | BLCK,OTHR | | | | | | | PERIPH NERV | | | | | | | DC SONO | | | | | | | GUIDE FOR | | | | | | | NEEDLE | | | | | | | PLACEMENT | | | | | | | DC MOD | | | | | | | SEDATION | | | | | | | >=5YRS SAME | | | | | | | MD/QUAL | | | | | | | PROV; INIT | | | | | | | 15 MIN DC | | | | | | | [...] | Procedure | Pain Center at [facility] | Alex Sanchez, | Pain in left leg; | | 2017 | | [address] | ,PhD [address] | Procedure | | | | Center for Health | [facility] | | | | | and Healing, | [place], [place] | | | | | [facility] | [address] | | | | | [place], [place] | [phone] | | | | | [address] | | | | | | [phone] | | | +--------+ + + + [...] note mi nayelit be different [facility] Patient Instructions - Post Interventional Procedure Date: 12/27/2017 Name: Tracie Farah Date of : 1990 Procedure Performed: trigger point injection and popliteal/sciatic block. Procedure Provider: Alex Sanchez MD,PhD If you have any problems you believe are associated with your procedure tonight, Please call the Hospital Regulatory Leader, and ask for the Pain Management Consu ltant. If you have problems or questions between 9:00 am and 4:00 pm, Please call the [facility] Nurse Triage Line, . [...] paper. Please fax the pain diary to [phone] or attach a scanned image of it to a [employer] message to your doct or.. The area [...] to the larry ent. David Linares MD [facility] documented in this encounter Progress Notes Alex Sanchez MD,PhD - 12/27/2017 3:00 PM PSTI was present for the entire procedure ( popliteal nerve block and abdominal scar neuroma injection) and all bocanegra elements of this vis it. I reviewed the documentation of the other HUMAN FACTORS SCIENTIST providers and concur with Dr. Linares's findings. I edited his note. Alex Sanchez MD,PhD Supervisor [place] Anesthesiology and Pain Management [facility] David Pennington MD - 12/27/2017 3:00 PM PSTPROVIDER OPERATIVE NOTE Date: December 27, 2017 Location: [facility] Procedure Room Tracie Farah [id number] :1990, presents to clinic for: PROCEDURE: Popliteal/sciatic [...] scar neuroma ATTENDING PHYSICIAN: Alex Sanchez MD,PhD SENIOR PROJECT ACCOUNTANT: Fellow David Linares MD ANESTHESIA: sedation Isadora [...] sedation. Ms. Farah was escorted to the [facility] Procedure R oom, where she was [...] procedure. Images were saved, and sent to [employer]. Ms. Farah was transported to the [facility] [...] by physician. Concentration is 150mg/mL. Compounded by [facility] ( [phone]) LEVONORGESTREL 20 MCG/24 HR (5 YEARS) INTRAUTERINE [...] directed by [facility]- 2 gallon [...] normal airway Assessment: I have reviewed Ms. Farha's history and and conducted the physical examination [...] PRE-SEDATION: Date: December 27, 2017 Tracie Farah [id number] 1990 ALLERGIES: Morphine Previous reaction to Sedation/Analgesia: [...] ride here with you? yes Who?: mother RN/MORGUE TECHNICIAN History: 1. Has your pain changed from [...] Date: December 27, 2017 Tracie Ocampojulita Farah [id number] 1990 See RN /MORGUE TECHNICIAN Pre-Sedation Note. IV ACCESS:Right subc PAC. BASELINE VS: See Sedation Flow Sheet. Tracie Donaldson Sofi [id number] 1990, presents to clinic for: Procedure: left [...] started. 1530 Midazolam 2mg IV given 1530 Fuslvkez404 mcg IV given 1534 Midazolam 1mg IV given 1546 Midazolam 1mg IV given 1546 Zubyclva018 mcg IV given 1548 Fentanyl 100 mcg IV given bupivacaine 0.5%, 9mL given, 21mL wasted Kenalog 40mg/mL 1mL, 0 mL wasted 1555 abdominal scar trigger point completed. 1558 Fentanyl 50 mcg IV given 1601 Fentanyl 50 mcg IV given Gen[place] placed for Popliteal Nerve Block.. Placement verified [...] + +--------+ + + + | DC INJECTION(S), | Routin | 12/27/2017 | Complex regional | | | ANESTHETIC AGENT(S) | e | 4:32 PM | pain syndrome type 1 | | | AND/OR STEROID; | | PST | of left lower | | | OTHER PERIPHERAL | | | extremity | | | NERVE OR BRANCH | | | | | + +--------+ + + + | DC ROPIVACAINE HCL | Routin | 12/27/2017 | Complex regional | | | INJ 0.5% | e | 4:32 PM | pain syndrome type 1 | | | | | PST | of left lower | | | | | | extremity | | + +--------+ + + + | DC MOD SEDATION | Routin | 12/27/2017 | Complex regional | | | >=5YRS SAME MD/QUAL | e | 4:32 PM | pain syndrome type 1 | | | PROV; INIT 15 MIN | | PST | of left lower | | | | | | extremity | | + +--------+ + + + documented in this encounter Results HUMAN FACTORS SCIENTIST MISC PROCEDURE (12/27/2017 3:28 PM PST) + [...]
--- OUTSIDE RECORDS SUMMARY | ~2020-06-23 | XMS | Encounter Summary ---
Demographics + + + | Address | [address] | | | [place] [address] | + + + | Home Phone [...] Team Providers + +------+ + | Care Baseball Inspector And Repairer Name | Role | Phone [...] | 2018 | on | [facility] at [place] | [address] | | | | | for Health and | [place], [place] | | | | | Healing [address] | [address] | | | | | Ave [place] for | [phone] | | | | | Health and Healing, | | | | | | | | | | | | Floor [facility] [place] | | | | | | [address] | | | | | | [phone] | | | +--------+ + + + [...]
--- OUTSIDE RECORDS SUMMARY | ~2020-06-23 | XMS | Encounter Summary ---
Demographics + + + | Address | [address] | | | [place] [address] | + + + | Home Phone [...] Providers + +------+ + | Care Stud Beef Cattle Farmer Name | Role | Phone | [...] | | | | regional | ,PhD [address] | | | | | | pain | [address] | | | | | | syndrome | [address] | | | | | | type [address] of | Rd | | | | | | left lower | [place], [place] | | | | | | extremity | [address] | | | | | | Procedures | Phone: | | | | | | PHYSICAL | [phone] | | | | | | THERAPY | Fax: | | | | | | REFERRAL | [phone] | | +--------+--------+ + + + + Encounter Details +--------+ + + + + | Date | Type | Department | Care Team | Description | +--------+ + + + + | 01/22/ | Telephone | [facility] Comprehensive | Alex Sanchez, | | | 2019 | | Pain Center at | ,PhD [address] [facility] | | | | | [facility] | [facility] | | | | | [address] | [place], [place] | | | | | [facility] | [address] | | | | | and [place]ina, | [phone] | | | | | | | | | | | Floor [place], [place] | | | | | | [address] | | | | | | [phone] | | | +--------+ + + + [...]
--- OUTSIDE RECORDS SUMMARY | ~2020-06-23 | XMS | Encounter Summary ---
Demographics + + + | Address | [address] | | | [place] [address] | + + + | Home Phone [...] Team Providers + +------+ + | Care Narcotics Detective Name | Role | Phone | [...] | CRPS | Dale Martinez MD | [facility] [address] | | | | | (complex | [address] | [address] | | | | | regional | [address] | [address] | | | | | pain | Mailstop | [address], | | | | | syndrome), | [id number] | Basement | | | | | lower limb | [place], [place] | [place], [place] | | | | | Procedures | [address] | [address] | | | | | [place] BONE &/OR | Phone: | Phone: | | | | | JOINT | [phone] | [phone] | | | | | IMAGING 3 | Fax: | Fax: | | | | | PHASE | [phone] | [phone] | +--------+--------+ + + + + Consult [...] | | | regional | [place] | [address] | | | | | pain | FAMILY | [address] | | | | | syndrome), | MEDICINE P | [id number] | | | | | lower limb | [address] | [place], [place] | | | | | Gait | [place], | [address] | | | | | disturbance | [place] [address] | Phone: | | | | | Muscle pain | Phone: | [phone] | | | | | Procedures | [phone] | Fax: | | | | | REQUEST TO | Fax: | [phone] | | | | | SURGERY | [phone] | | | | | | ORTHODONTIST ASSISTANT | | | +--------+--------+ + + + + Consultation (Routine) +--------+--------+ + + + + | Status | Reason | Specialty | Diagnoses / | Referred By | Referred To | | | | | Procedures | Contact | Contact | +--------+--------+ + + + + | Closed | | Psychology / | Diagnoses | 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, | 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 Psych | | | | Pain | CRPS | Dale Martinez MD | [facility] [address] | | | | Management | (complex | [address] | | | | | regional | [address] | Center for | | | | | pain | [address]stop | Health and | | | | | syndrome), | [address] | Healing, | | | | | lower limb | [place], [place] | Building | | | | | Gait | [address] | [address] Floor | | | | | disturbance | Phone: | [place], [place] | | | | | Muscle pain | [phone] | [address] | | | | | Procedures | Fax: | Phone: | | | | | CONSULT TO | [phone] | [phone] | | | | | PAIN CENTER | | Fax: | | | | | | | [phone] | +--------+--------+ + + + + Physical Therapy (Routine) +--------+--------+ + + + + | Status | Reason | Specialty | Diagnoses / | Referred By | Referred To | | | | | Procedures | Contact | Contact | +--------+--------+ + + + + | Closed | | Physical | Diagnoses | Beulah, | Edu Pt 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 | | | | Therapy | CRPS | Dale Martinez MD | [facility] [address] | | | | | (complex | [address] | | | | | regional | [address] | Mailcode: | | | | | pain | [address] | [facility] | | | | | syndrome), | [id number] | for Health | | | | | lower limb | [place], [place] | and Healing, | | | | | Gait | [address] | [facility] 1 | | | | | disturbance | Phone: | [place], [place] | | | | | Muscle pain | [phone] | [address] | | | | | Procedures | Fax: | Phone: | | | | | PHYSICAL | [phone] | [phone] | | | | | THERAPY | [...] | | | 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 | FAMILY | [address] | | | | | of lower | MEDICINE P | [address] | | | | | limb | [address] | [place], [place] | | | | | | [place], | [address] | | | | | | [place] [address] | Phone: | | | | | | Phone: | [phone] | | | | | | [phone] | Fax: | | | | | | Fax: | [phone] | | | | | | [phone] | | +--------+--------+ + + + + Encounter Details +--------+---------+ + + + | Date | Type | Department | Care Team | Description | +--------+---------+ + + + | 02/13/ | Office | [facility] | Dale Cantu, | CRPS (complex | | 2011 | Visit | Pain Center at | MD [address] | regional pain | | | | [facility] | [facility] 988708 | syndrome), lower | | | | [address] | [place], [place] | limb; Gait | | | | Center for Health | [address] | disturbance; Muscle | | | | and Healing, | [phone] | pain; Adjustment | | | | | | reaction | | | | Floor [place], [place] | | | | | | [address] | | | | | | [phone] | | | +--------+---------+ + + + [...] Diagnostic evaluation: Records from CRPS program at [facility]. 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 [...] employed by the psychologists here at the [facility]. 2.2 Physical therapy can reduce pain and improve functional status. Suggest Guillermo Sanon . 3. Medication suggestions: 3.1 Continue titrating up duloxetine. 3.2 As for any patient being managed with chronic opioids, we do recommend that the patien t have a signed [facility] Material Risk Notice, agree to [...] sintia sure this is scheduled with the Cancer Spec. Please bring a road train driver with you. We may give you medications that make you drowsy or otherw ise unsafe to drive. If you do not have a road train driver, we will not be able to do your procedure. DO NOT EAT ANYTHING AFTER MIDNIGHT If your appointment is after 1 PM , you may have a very light, low fat breakfast, such as h prison a piece of dry toast or a [...] PLEASE CONTACT THE COMPREHENSIVE PAIN CENTER AT [phone] ([phone]) FOR QUESTIONS OR IF YOU NEED TO CANCEL YOUR APPOINTMENT. [facility] Comprehensive Pain Center documented in [...] pain management consultation by BJORN Mi [place] [facility] [address] [place] [address] Reason for visit Chief Complaint Patient presents with Pain in left leg Ankle pain left History of Present Illness: Tracie Farah is a 21 year old female with pain locate d in left lower extremity. She has been diagnosed with CRPS. She is referred to [facility] for consultation regarding this ongoing pain problem with the following spec [facility] issues to be addressed: Other [...] by several orthopedic surgeons, Dr. Charles in [place], physical therapy, Occupational Therapy. Diagnostic and radiologic [...] no pain relief. Admitted to the inpatient [facility] program for 1 month in the [...] entin, pregabalin, topiramate, tramadol, multiple opioids. Current [place] about 6-8/day. St arting duloxetine, at 30 mg/day. She feels that the most effective medication treatments ar e or have been opioids. As a result of her pain, Ms. Farah notes multiple changes in her life, including: "I don 't have a life, can't work, can't go to school." Poor mood, sleep, activity. Using crutche s recently because of pain flare. RESTROOMS OR LOUNGES MAID Brief Pain Inventory: (ten= worst possible pain [...] History Social History Narrative Single. Goes to [employer] with a light load. Has been working at [employer], can' t work on [employer]. Has roommates. Current Medication List 02/14/12 9:50 [...] Anaphylaxis As part of today's visit the [facility] new patient questionnaire was [...] rambo, the pediatric inpatient pain program at [facility], and two attempted lumbar sympathetic blocks. [...] CRPS patients (Loretta Rousseau, et al. Katrina Aerial Advertiser Med. 2010;152: 152-158). Other treatment options for the future: Spinal cord stimulation (SCS) has good evidence f or providing detention relief in CRPS (Complex Regional Pain Syndrome) [...] [facility]: [facility] Suggest three ph ase bone [...] employed by the psychologists here at the [facility]. ORDER PLACED 2.2 Physical therapy can reduce pain and improve functional status. Suggest Guillermo Sanon . ORDER PLACED 3. Medication suggestions: 3.1 Continue titrating up duloxetine. 3.2 As for any patient being managed with chronic opioids, we do recommend that the patien t have a signed [facility] Material Risk Notice, agree to [...] her PCP, BJORN Villanueva. DALE CANTU MD Table Operator, [facility] Fire Investigator, Pain Medicine Professor, Anesthesiology & Perioperative Medicine [...] | | | | | | Gerry iLu M.D. I | | | | | [...]
--- OUTSIDE RECORDS SUMMARY | ~2020-06-23 | XMS | Encounter Summary ---
Demographics + + + | Address | [address] | | | [place] [address] | + + + | Home Phone [...] Providers + +------+ + | Care Product Delivery Specialist Name | Role | Phone | [...] | Pain Center at | [address] | | | | | [facility] | [address] [address] | | | | | [address] | [place], [place] | | | | | Center for Health | [address] | | | | | and Healing, | [phone] | | | | | [facility] | | | | | | Floor [place], [place] | | | | | | [address] | | | | | | [phone] | | | +--------+ + + + [...]
--- OUTSIDE RECORDS SUMMARY | ~2020-06-23 | XMS | Encounter Summary ---
Demographics + + + | Address | [address] | | | [place] [address] | + + + | Home Phone [...] Providers + +------+ + | Care Operations And Maintenance Technician Name | Role | Phone | + +------+ + | Justo Vazquez MD | PCP | | + +------+ + Encounter Details +--------+ + + + + | Date | Type | Department | Care Team | Description | +--------+ + + + + | 01/31/ | Documentati | Vascular Access at | [place], | | | 2017 | on | [facility] [address] | Maru RN [address] | | | | | [address] | [address] | | | | | [facility] | [place], [place] | | | | | [place], [place] | [address] | | | | | [address] | | | | | | [phone] | | | +--------+ + + + [...]
--- OUTSIDE RECORDS SUMMARY | ~2020-06-23 | XMS | Encounter Summary ---
Demographics + + + | Address | [address] | | | [place] [address] | + + + | Home Phone [...] Providers + +------+ + | Care Police District Switchboard Operator Name | Role | Phone | [...] | 2015 | | Center at [facility] [address] Torres MD | Treatment Planning | | | | [address] [place] | | | | | | for Health and | | | | | | [facility] [place], [facility] 2 | | | | | | [place], [place] | | | | | | [address] | | | | | | [phone] | | | +--------+ + + + [...]
--- OUTSIDE RECORDS SUMMARY | ~2020-06-23 | XMS | Encounter Summary ---
Demographics + + + | Address | [address] | | | [place] [address] [...] Team Providers + +------+ + | Care Tawer Name | Role | Phone | + [...] | | | | | extremity | [address] | [address] | | | | | Procedures | Phone: | Phone: | | | | | REQUEST TO | [phone] | [phone] | | | | | SURGERY | Fax: | Fax: | | | | | MUSEUM ATTENDANT | [phone] | [phone] | +--------+---------+ + + + + Encounter Details +--------+---------+ + + + | Date | Type | Department | Care Team | Description | +--------+---------+ + + + | 12/22/ | Office | [facility] Comprehensive | Ilene Bright, | Complex regional | | 2019 | Visit | Pain Center at | MANAGER COUNTRY [address] | pain syndrome type 1 | | | | [facility] | [place], [place] | of left lower | | | | [address] | [address] | extremity; S/P | | | | [place] for [facility] | [phone] | insertion of spinal | | | | and Healing, | | cord stimulator | | | | Building | | | | | | Floor [place], [place] | | | | | | [address] | | | | | | [phone] | | | +--------+---------+ + + + [...] fo r your reference. - The [facility] underwriting service representative met with you and made adjustments to your stimulator. I spoke w ith the underwriting service representative and she is happy with your progress and thinks that today's adjustmen ts will continue to improve your condition. - We discussed and examined your surgical incision. As you mentioned, it is healing well wi th no signs of infection. Please contact us if you start to notice any signs of infection goznales ch as fever, chills, increased redness, warmth or foul odor. - Additionally, we discussed your request for three more days of Oxycodone 10 mg to treat y our post-surgical pain. I will call this prescription into the [facility] in [place]. It was great to see you again, documented in this encounter Progress Notes [place]ene Bright, MANAGER COUNTRY - 12/22/2018 11:00 AM PSTFormatting of this note might be different fr om the original. [facility] Return Visit Date: 12/22/2018 Chief Complaint Patient presents with Low back pain Pain in left leg History of Present Illness: Tracie Farah is a 28 year old female, whose last appoi ntment at the [facility] was 12/07/2018 following her doral [...] order to tolerate her incision site pain. PET TECHNOLOGIST Brief Pain Inventory: (ten= worst possible pain [...] History Social History Narrative Single. Goes to [employer] with a light load. Has been working at [employer], can' t work on [employer]. Has roommates. Allergies Allergen Reactions Morphine Anaphylaxis [...] GRAM-5.86 GRAM SOLUTION Take as directed by [facility] Digestive Health- 2 gallon [...] with nausea Abdominal pain Abdominal scar neuroma [facility] CLINICAL PROTOCOL PATIENT (CLNPRO) [...] old medical records (source: [facility], [facility] Everywhere), as [...] taking for her surgical incision. The [facility] underwriting service representative visited the patient in order [...] ed by Collin Salomon. Ilene Childs DNP, MANAGER COUNTRY-C [facility] [address] [place] [address] mith, Charline Torres MA - 12/22/2018 11:00 [...]
--- OUTSIDE RECORDS SUMMARY | ~2020-06-23 | XMS | Encounter Summary ---
Demographics + + + | Address | [address] | | | [place] [address] | + + + | Home Phone [...] Team Providers + +------+ + | Care Official Greeter Name | Role | Phone | + [...] | (ortho question) | | | | [facility] | [facility] | | | | | [address] | [place], [place] | | | | | [facility] | [address] | | | | | and Healing, | [phone] | | | | | | | | | | | Floor [place], [place] | | | | | | [address] | | | | | | [phone] | | | +--------+ + + + [...]
--- OUTSIDE RECORDS SUMMARY | ~2020-06-23 | XMS | Encounter Summary ---
Demographics + + + | Address | [address] | | | [place] [address] | + + + | Home Phone [...] Team Providers + +------+ + | Care Geophysical Prospecting Surveyor Name | Role | Phone | [...] + + | 08/03/ | Refill | [facility] Comprehensive | Alex Sanchez, | Refill Request | | 2018 | | Pain Center at | ,PhD [address] [facility] | (ketamine) | | | | [facility] | [facility] | | | | | [address] | [place], [place] | | | | | [facility] | [address] | | | | | and [place], | [phone] | | | | | [facility] | | | | | | Floor [place], [place] | | | | | | [address] | | | | | | [phone] | | | +--------+--------+ + + + [...]
--- OUTSIDE RECORDS SUMMARY | ~2020-06-23 | XMS | Encounter Summary ---
Demographics + + + | Address | [address] | | | [place] [address] | + + + | Home Phone [...] Providers + +------+ + | Care Case Managers Name | Role | Phone | [...] | Request (ketamine) | | | | [facility] | [address] | | | | | [address] | [place], [place] | | | | | [facility] | [address] | | | | | and Healing, | [phone] | | | | | | | | | | | Floor [place], [place] | | | | | | [address] | | | | | | [phone] | | | +--------+ + + + [...]
--- OUTSIDE RECORDS SUMMARY | ~2020-06-23 | XMS | Encounter Summary ---
Demographics + + + | Address | [address] | | | [place] [address] | + + + | Home Phone [...] Providers + +------+ + | Care Claims Adjustor Name | Role | Phone | + +------+ + | Allegra Gandhi | PCP | | + +------+ + Encounter Details +--------+ + + + + | Date | Type | Department | Care Team | Description | +--------+ + + + + | 02/13/ | Hospital | Nuclear Medicine | | | | 2011 | Encounter | at [facility] [address] | | | | | | [address] | | | | | | [address], | | | | | | [place], | | | | | | [place] [address] | | | | | | [phone] | | | +--------+ + + + [...]
--- OUTSIDE RECORDS SUMMARY | ~2020-06-23 | XMS | Encounter Summary ---
Demographics + + + | Address | [address] | | | [place] [address] | + + + | Home Phone [...] Team Providers + +------+ + | Care Drop Crew Laborer Name | Role | Phone | + +------+ + | Justo Vazquez MD | PCP | | + +------+ + Encounter Details +--------+ + + + + | Date | Type | Department | Care Team | Description | +--------+ + + + + | 03/16/ | Telephone | Digestive Health | Crys Gomez, | | | 2016 | | Center at [facility] [address] | [address] | | | | | [address] | [address] | | | | | [facility] Health and | [place], [place] | | | | | [facility] 2 | [address] | | | | | [place], [place] | [phone] | | | | | [address] | | | | | | [phone] | | | +--------+ + + + [...]
--- OUTSIDE RECORDS SUMMARY | ~2020-06-23 | XMS | Encounter Summary ---
Demographics + + + | Address | [address] | | | [place] [address] | + + + | Home Phone [...] Providers + +------+ + | Care Business Consult Name | Role | Phone | + [...] | | | | | Procedures | [place], [place] | | | | | | MR | [id number] | | | | | | ENTEROGRAPHY [...] | 2017 | Visit | Center at [facility] [address] | | unspecified location | | | | [address] [facility] | | (Primary Dx) | | | | for Health and | | | | | | Healing, Building 2 | | | | | | [place], [place] | | | | | | [address] | | | | | | [phone] | | | +--------+---------+ + + + [...] heavy metal poisoning 2) MR enterography - [phone] to schedule 3) can increase miralax to 6 times per day Return to clinic in 3 months Please feel free to call our clinic with any questions. [phone] Kenny Gaspar MD Fellow, Division of Gastroenterology [...] n their attached note. Celia Lin MD Interactive Video Techniciandocument management consultant Division of Gastroenterology & Hepatology [facility] Kenny Dodge Md - 2016 3:15 PM PST Gastroenterology Clinic Follow-Up Note 01/11/2017 CC/ID: Tracie Farah is a 26 F PMHx depression, complex regional pain syndrome(CRPS ) here for follow-up of n/v, abdominal pain INTERVAL HISTORY: Previously seen by Dr. Carbajal 08/10/16 - 10/2015 - hospitalized at [facility] for nausea/vomiting/pain -> [facility] -> CT A/P [...] oral recon soln Take as directed by [facility]- 2 gallon bowel prep 8000 mL 0 [...] Note | + + | Service Account, ShaveLogic Res In Interface - 02/01/2017 3:50 PM [...]
--- OUTSIDE RECORDS SUMMARY | ~2020-06-23 | XMS | Encounter Summary ---
Demographics + + + | Address | [address] | | | [place] [address] | + + + | Home Phone [...] Providers + +------+ + | Care Gas Shovel Operator Name | Role | Phone | [...] | 2016 | Encounter | Center at [facility] 2186 | | results | | | | [facility] | | | | | | for Health and | | | | | | Healing, Building 2 | | | | | | [place], [place] | | | | | | [address] | | | | | | [phone] | | | +--------+ + + + [...]
--- OUTSIDE RECORDS SUMMARY | ~2020-06-23 | XMS | Encounter Summary ---
Demographics + + + | Address | [address] | | | [place] [address] | + + + | Home Phone [...] Team Providers + +------+ + | Care Neurosurgical Physician Assistant Name | Role | Phone [...] | | 2015 | | Center at [facility] [address] | MD Melissa | | | | | [facility] | | | | | | for Health and | | | | | | Healing, Building 2 | | | | | | [place], [place] | | | | | | [address] | | | | | | [phone] | | | +--------+ + + + [...]
--- OUTSIDE RECORDS SUMMARY | ~2020-06-23 | XMS | Encounter Summary ---
Demographics + + + | Address | [address] | | | [place] [address] | + + + | Home Phone [...] Team Providers + +------+ + | Care Canteen Attendant Name | Role | Phone | + +------+ + | Justo Vazquez MD | PCP | | + +------+ + Encounter Details +--------+ + + + + | Date | Type | Department | Care Team | Description | +--------+ + + + + | 12/02/ | Document-Sc | Health Information | Unknown . | | | 2017 | anned | Services [address] | | | | | | [address] | | | | | | Mailcode: [id number] | | | | | | [facility] | | | | | | [place], [place] | | | | | | [address] | | | | | | [phone] | | | +--------+ + + + [...]
--- OUTSIDE RECORDS SUMMARY | ~2020-06-23 | XMS | Encounter Summary ---
Demographics + + + | Address | [address] | | | [place] [address] | + + + | Home Phone [...] Providers + +------+ + | Care City Weighmaster Name | Role | Phone | + [...] | | | | | Giuliana Maldonado [place], | | | | | | [place] [address] | | | +--------+ + + + [...]
--- OUTSIDE RECORDS SUMMARY | ~2020-06-23 | XMS | Encounter Summary ---
Demographics + + + | Address | [address] | | | [place] [address] | + + + | Home Phone [...] Team Providers + +------+ + | Care Peer Counselor Name | Role | Phone | + +------+ + | Justo Vazquez MD | PCP | | + +------+ + Encounter Details +--------+ + + + + | Date | Type | Department | Care Team | Description | +--------+ + + + + | 10/20/ | Telephone | [facility] | Ilene Bright, | | | 2017 | | Pain Center at | BENDING SHED WORKER [address] | | | | | [facility] | [place], [place] | | | | | [address] | [address] | | | | | [place] for [facility] | [phone] | | | | | and Healing, | | | | | | | | | | | | Floor [place], [place] | | | | | | [address] | | | | | | [phone] | | | +--------+ + + + [...]
--- OUTSIDE RECORDS SUMMARY | ~2020-06-23 | XMS | Encounter Summary ---
Demographics + + + | Address | [address] | | | [place] [address] | + + + | Home Phone [...] Providers + +------+ + | Care Health Care Facilities Inspector Name | Role | Phone | [...] Rd | | | | | | [place], [place] | | | | | | [address] | | | +--------+ + + + [...]
--- OUTSIDE RECORDS SUMMARY | ~2020-06-23 | XMS | Encounter Summary ---
Demographics + + + | Address | [address] | | | [place] [address] | + + + | Home Phone [...] Team Providers + +------+ + | Care Shellfish Manager Name | Role | Phone | [...] | Orthopedics | Diagnoses | [place], | [place], | | | | | Complex | [place], | Ranjeet Odom MD | | | | | regional | ,PhD [address] | [address] | | | | | pain | [address] | [address] | | | | | syndrome | [place] | [place], [place] | | | | | type 1 of | Rd | [address] | | | | | left lower | [place], [place] | Phone: | | | | | extremity | [address] | [phone] | | | | | Procedures | Phone: | Fax: | | | | | CONSULT TO | [phone] | [phone] | | | | | ORTHOPEDICS | Fax: | | | | | | AND | [phone] | | | | | | REHABILITATI [...] | ankle results) | | | | [facility] | [facility] [address] | | | | | [address] | [place], [place] | | | | | [facility] | [address] | | | | | and Healing, | [phone] | | | | | | | | | | | Floor [place], [place] | | | | | | [address] | | | | | | [phone] | | | +--------+ + + + [...]
--- OUTSIDE RECORDS SUMMARY | ~2020-06-23 | XMS | Encounter Summary ---
Demographics + + + | Address | [address] | | | [place] [address] | + + + | Home Phone [...] Team Providers + +------+ + | Care Pulmonologist/Intensivist Name | Role | Phone | + [...] | | | sympathetic | [place] | [address]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 | FAMILY | [address] | | | | | of lower | MEDICINE P | [id number] | | | | | limb | [address] | [place], [place] | | | | | | [place], | [address] | | | | | | [place] [address] | Phone: | | | | | | Phone: | [phone] | | | | | | [phone] | Fax: | | | | | | Fax: | [phone] | | | | | | [phone] | | +--------+--------+ + + + + Encounter Details +--------+---------+ + + + | Date | Type | Department | Care Team | Description | +--------+---------+ + + + | 09/04/ | Office | [facility] Comprehensive | Dale Cantu, | CRPS (complex | | 2011 | Visit | Pain Center at | [address] [facility] | regional pain | | | | [facility] | [facility] [id number] | syndrome), lower | | | | [address] | [place], [place] | limb; Gait | | | | [place] for [facility] | [address] | disturbance; Sleep | | | | and Healing, | [phone] | disturbance, | | | | Building | | unspecified; | | | | Floor [place], [place] | | Adjustment reaction | | | | [address] | | | | | | [phone] | | | +--------+---------+ + + + [...] CRPS patients (Loretta Rousseau et al. Katrina Bulb Grower Med. 2010;152:152-158) . Bisphosphonate trial. Typically, I [...] Abraham MD - 09/04/2012 7:45 AM PDT [facility] Pain Center Return Visit with [...] and a pain drawing which I reviewed. [facility] Brief Pain Inventory: (ten= [...] Trial spinal cord stimulator leads 08/02/2012 [facility], Surgeon: Dale Cantu MD Family History [...] Review of Systems obtained by the [facility] was reviewed. Additional Review of [...] of Pain: 13(1):17-21, 2008). DALE CANTU MD Chlorination Operator, [facility] Geometry Professor, Pain Medicine Professor, Anesthesiology & Perioperative [...]
--- OUTSIDE RECORDS SUMMARY | ~2020-06-23 | XMS | Encounter Summary ---
Demographics + + + | Address | [address] | | | [place] [address] | + + + | Home Phone [...] Team Providers + +------+ + | Care Sugar Trucker Name | Role | Phone | + +------+ + | Justo Vazquez MD | PCP | | + +------+ + Encounter Details +--------+ + + + + | Date | Type | Department | Care Team | Description | +--------+ + + + + | 06/04/ | Documentati | [facility] Comprehensive | Alex Sanchez, | | | 2019 | on | Pain Center at | ,PhD [address] | | | | | [facility] | [address] | | | | | [address] | [place], [place] | | | | | [place] for [facility] | [address] | | | | | and Healing, | [phone] | | | | | | | | | | | Floor [place], [place] | | | | | | [address] | | | | | | [phone] | | | +--------+ + + + [...]
--- OUTSIDE RECORDS SUMMARY | ~2020-06-23 | XMS | Encounter Summary ---
Demographics + + + | Address | [address] | | | [place] [address] | + + + | Home Phone [...] Team Providers + +------+ + | Care Tooth Grinder Name | Role | Phone | [...] | | | sympathetic | [place] | [address]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 | FAMILY | [address] | | | | | of lower | MEDICINE P | [id number] | | | | | limb | [address] | [place], [place] | | | | | | [place], | [address] | | | | | | [place] [address] | Phone: | | | | | | Phone: | [phone] | | | | | | [phone] | Fax: | | | | | | Fax: | [phone] | | | | | | [phone] | | +--------+--------+ + + + + Encounter Details +--------+---------+ + + + | Date | Type | Department | Care Team | Description | +--------+---------+ + + + | 03/17/ | Office | [facility] Comprehensive | Dale Cantu, | CRPS (complex | | 2011 | Visit | Pain Center at | [address] | regional pain | | | | [place] | [address] [id number] | syndrome), lower | | | | [address] | [place], [place] | limb; Adjustment | | | | [place] for [facility] | [address] | reaction; Muscle | | | | and Healing, | [phone] | pain; Gait | | | | [facility] | | disturbance | | | | Floor [place], [place] | | | | | | [address] | | | | | | [phone] | | | +--------+---------+ + + + [...] Pain: After Your Visit", log into your I Move You nt at [email or web address]. You can enter [id number] in the Allovue Library" search box. Not on Whittlt? Review the MyChart section of your After Visit Summary for directions on liz rea to sign up. [id number] rocket staff. Care instructions adapted under license by [facility]. This care instruction is for use with your licensed healthcar e professional. If you have questions about a medical condition or this instruction, always ask your healthcare professional. rocket staff disclaims any warranty or liabili ty for your use of this information. Content Version: 9.2.222895; Last Revised: April 29, 2011 Nortriptyline for [...] Pain: After Your Visit", log into your I Move You nt at [email or web address]. You can enter G828 in the MyFitnessPal" search box. Not on Grabbit? Review the Manipal Acunovahart section of your After Visit Summary for directions on ho w to sign up. [id number] rocket staff. Care instructions adapted under license by [facility] [place]. This care instruction is for use with your licensed healthcar e professional. If you have questions about a medical condition or this instruction, always ask your healthcare professional. rocket staff disclaims any warranty or liabili ty for your use of this information. Content Version: 9.2.760883; Last Revised: April 29, 2011 documented in [...] documented in our notes. DALE CANTU MD Service Engine Repairer, Comprehensive [facility] Center Gardening Supervisor, Pain Medicine Professor, Anesthesiology & Perioperative Medicine NAMollMarquis manriquez MD - 03/17/2012 3:42 PM PDT [facility] Pain Center Return Visit with Dr. [...] her pain. She continues to take 6-8 [employer] per day and 600 mg of ibuprofen [...] CANCER CENTER was reviewed. Additional Review of Systems: [...] you require any medication refills today? no FELT COVERER ROS: 1. Bones, Joints, and Muscles: cramps [...]
--- OUTSIDE RECORDS SUMMARY | ~2020-06-23 | XMS | Encounter Summary ---
Demographics + + + | Address | [address] | | | [place] [address] | + + + | Home Phone [...] Team Providers + +------+ + | Care Call Center Team Leader Name | Role | Phone | + +------+ + | Justo Vazquez MD | PCP | | + +------+ + Encounter Details +--------+ + + + + | Date | Type | Department | Care Team | Description | +--------+ + + + + | 07/26/ | MyChart | [facility] Comprehensive | Ilene Bright, | Labs | | 2017 | Encounter | Pain Center at | WEASAND TRIMMER [address] | | | | | [facility] | [place], [place] | | | | | [address] | [address] | | | | | [place] for [facility] | [phone] | | | | | and Healing, | | | | | | | | | | | | Floor [place], [place] | | | | | | [address] | | | | | | [phone] | | | +--------+ + + + [...]
--- OUTSIDE RECORDS SUMMARY | ~2020-06-23 | XMS | Encounter Summary ---
Demographics + + + | Address | [address] | | | [place] [address] | + + + | Home Phone | | + + + | Preferred Language | Unknown | + + + | Marital Status | Single | + + + | Spiritism Affiliation | 1073 | + + + | Race | Unknown | + + + | Ethnic Group | Unknown | + + + Author + + + | Author | [facility] | | | and [place] | + + + | Organization | [facility] | | | and [...] [place] | | | | | [address] | | + + + + + [...] + + | 03/16/ | Hospital | [facility] | Conversion | Back pain | | 2013 | Encounter | CONVERSION [address] | Transaction, | | | | | [address] | Provider Unknown | | | | | [place], [place] | [phone] | | | | | [address] | | | | | | [phone] | | | +--------+ + + + [...]
--- OUTSIDE RECORDS SUMMARY | ~2020-06-23 | XMS | Encounter Summary ---
Demographics + + + | Address | [address] | | | [place] [address] | + + + | Home Phone [...] Team Providers + +------+ + | Care Carburetor Expert Name | Role | Phone | [...] | | 2017 | | Center at [facility] 3485 | MD Melissa | Marker instructions) | | | | [address] [facility] | | | | | | for Health and | | | | | | Healing, Building [address] | | | | | | [place], [place] | | | | | | [address] | | | | | | [phone] | | | +--------+ + + + [...]
--- OUTSIDE RECORDS SUMMARY | ~2020-06-23 | XMS | Encounter Summary ---
Demographics + + + | Address | [address] | | | [place] [address] | + + + | Home Phone [...] Team Providers + +------+ + | Care Shake Sawyer Name | Role | Phone | + [...] Closed | | Orthopedics | Diagnoses | [facility], | [facility] | | | | | Adjustment | Ranjeet Odom MD | [address] | | | | | disorder, | [address] | [address] | | | | | unspecified | Ave | Center for | | | | | type | [facility] [place] | Health and | | | | | Procedures | [address] | Healing, | | | | | CONSULT TO | Phone: | Building 1, | | | | | BEHAVIORAL | [phone] | 12th Floor | | | | | HEALTH/PSYCH | Fax: | [place], [place] | | | | | CHRISTINA - | [phone] | [address] | | | | | ADULT | | Phone: | | | | | | | [phone] | | | | | | | Fax: | | | | | | | [phone] | +--------+--------+ + + + + Reason [...] | | syndrome | [address] | [place], [place] | | | | | type 1 of | Rd | [address] | | | | | left lower | [place], [place] | Phone: | | | | | extremity | [address] | [phone] | | | | | Procedures | Phone: | Fax: | | | | | CONSULT TO | [phone] | [phone] | | | | | ORTHOPEDICS | Fax: | | | | | | AND | [phone] | | | | | | REHABILITATI [...] | 2018 | Visit | Faculty at [place] | [address] | (Primary Dx); Left | | | | for Health and | [place], [place] | ankle pain, | | | | Healing [address] | [address] | unspecified | | | | [facility] for | [phone] | chronicity; | | | | Health and Healing, | | Adjustment disorder, | | | | Building | | unspecified type | | | | Floor [place], [place] | | | | | | [address] | | | | | | [phone] | | | +--------+---------+ + + + [...] by physician. Concentration is 150mg/mL. Compounded by [employer] ([id number]) levonorgestrel (MIRENA) 20 mcg/24 hr Intrauterine IUD [...] oral recon soln Take as directed by [facility] [employer] [facility]- 2 gallon bowel prep polyethylene glycol [...] parts [facility] and personally formulated the plan with the [...] become. f/u open ended Ranjeet Amanda M.D. Wheel Roller Foot and Ankle Surgery Department of Orthopedics & Rehabilitation [facility] [phone] >60 mins face to face consultation was [...]
--- OUTSIDE RECORDS SUMMARY | ~2020-06-23 | XMS | Encounter Summary ---
Demographics + + + | Address | [address] | | | [place] [address] | + + + | Home Phone [...] Team Providers + +------+ + | Care Silver Solderer Name | Role | Phone | + [...] | | Pain | Complex | [place], COGENERATION OPERATOR | Catriona M, | | | | Management | regional | [address] | PSY D [address] | | | | | pain | Ave | [address] | | | | | syndrome | [place], [place] | [place], [place] | | | | | type 1 of | [address] | [address] Phone: | | | | | left lower | Phone: | [phone] | | | | | extremity | [phone] | Fax: | | | | | Intractable | Fax: | [phone] | | | | | cyclical | [phone] | | | | | | vomiting [...] | | | | | | MT | | | | | | | PSYCHIATRIC | | | | | | | DIAGNOSTIC | | | | | | | EVAL, NO MED | | | | | | | SVCS [place] | | | | | | | PSYCH TSTNG | | | | | | | PSYCH/PHYS | | | | | | | MT | | | | | | | PSYCHOTHERAP | | | | | | | Y, 45 MIN | | | +--------+---------+ + + + + Encounter Details +--------+---------+ + + + | Date | Type | Department | Care Team | Description | +--------+---------+ + + + | 10/11/ | Office | Pain Center at [facility] | Jamel Bravo, | 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 The patient was referred for pain [...] by physician. Concentration is 150mg/mL. Compounded by [employer] ([phone]), Disp: , Rfl: 5 lamoTRIgine 200 mg [...] recon soln, Take as directed by [facility]- 2 gallon bowel prep, Disp: [...] She reported doing some of the kiln repairer. For enjoyment the patient watches TV, reads, [...] time I spent was approximately 50 minutes yodr-em-peka with the patient and approxima tely 1 hour 40 minutes of psk-zjsb-qm-face testing, interpreting and synthesizing results. Jamel Bravo, PhD PAIN CENTER AT [facility] 15TH FLOOR [address] [facility] Mail Code: Ch15p [place] [address] documented in this en counter [...]
--- OUTSIDE RECORDS SUMMARY | ~2020-06-23 | XMS | Encounter Summary ---
Demographics + + + | Address | [address] | | | [place] [address] | + + + | Home Phone [...] Providers + +------+ + | Care Instant Print Operator Name | Role | Phone | + +------+ + | Justo Vazquez MD | PCP | | + +------+ + Encounter Details +--------+------+ + + + | Date | Type | Department | Care Team | Description | +--------+------+ + + + | 04/23/ | Lab | Laboratory at [facility] | | Other chronic pain ; | | 2018 | | [address] | | Complex regional | | | | Center for [facility] | | pain syndrome type 1 | | | | and Healing, | | of left lower | | | | Building 2 | | extremity | | | | [place], [place] | | | | | | [address] | | | | | | [phone] | | | +--------+------+ + + + [...] LABORATORY | | Barbiturates >=200 ng/mL | [facility] [place] | | Benzodiazepine >=200 ng/mL Cocaine | [...] | KEVIN SHAH | [address] | [place] [address] | | | SERVICES, LILLIAN | GUILLERMO [...]
--- OUTSIDE RECORDS SUMMARY | ~2020-06-23 | XMS | Encounter Summary ---
Demographics + + + | Address | [address] | | | [place] [address] | + + + | Home Phone [...] Team Providers + +------+ + | Care Job Forwarder Name | Role | Phone | + [...] | | Pain Center at | ,PhD [address] [facility] | follow-up | | | | [facility] | [address] | | | | | [address] | [place], [place] | | | | | [facility] | [address] | | | | | and [place], | [phone] | | | | | Building | | | | | | Floor [place], [place] | | | | | | [address] | | | | | | [phone] | | | +--------+ + + + [...]
--- OUTSIDE RECORDS SUMMARY | ~2020-06-23 | XMS | Encounter Summary ---
Demographics + + + | Address | [address] | | | [place] [address] | + + + | Home Phone [...] Team Providers + +------+ + | Care Printing Engineer Name | Role | Phone | [...] + + | 12/05/ | Surgery | [facility] | Alex Sanchez, | BILATERAL DORSAL | | 2019 | | [facility] | ,PhD [address] [facility] | ROOT GANGLION SPINAL | | | | and Healing Surgery | [address] | CORD STIMULATOR | | | | Center Admitting | [place], [place] | IMPLANT LUMBAR; | | | | Desk Located on the | [address] | POSTERIOR | | | | 4th floor [address] | [phone] | | | | | [address] [place], | | | | | | [place] [address] | | | +--------+---------+ + + + [...] s/p successful DRG trial lead system with [employer] on 09/25/2018. No changes in H&P, [...] OPERATIVE NOTE Date: December 05, 2018 Location: [facility] [place] | | | Tracie Farah [id number] :1990, presents to clinic | | | for: Dorsal root ganglion stimulator implant PROCEDURE: Dorsal | | | root ganglion stimulator implant PRE-OPERATIVE DIAGNOSIS: Complex | | | regional Pain syndrome type 1 of left lower extremity | | | POST-OPERATIVE DIAGNOSIS: Complex regional Pain syndrome type 1 of | | | left lower extremity ATTENDING PHYSICIAN: Alex Sanchez | | | TALENT DEVELOPMENT DIRECTOR: Arben Valerio MD ANESTHESIA: sedation by IVIS Cole | | | Carmen, supervised by sales and service representative Ilir Valdes. | | | FINDINGS: Appropriate [...] sedation. Ms. Farah was escorted to the [facility] | | | [place], where she [...] recovery. Images were saved, and sent to [employer]. | | | Alex Sanchez (attending) was present for the entire procedure. | | | Arben Valerio MD I was present for the entire procedure | | | (spinal cord stimulator implantation with DRG leads at left L4 and | | | L5) and all bocanegra elements of this visit. I reviewed the | | | documentation of the other HELP DESK REP providers and concur with | | | Iman's findings. I edited his note. Alex Sanchez, | | | ,PhD Blindmaker Anesthesiology and Pain Management | | | [facility] | | + + + HCG URINE, [...] + | JOSE ANTONIO MIN | [address] [facility] | [place] [address] | | | OF CARE TESTS | [...]
--- OUTSIDE RECORDS SUMMARY | ~2020-06-23 | XMS | Encounter Summary ---
Demographics + + + | Address | [address] | | | [place] [address] | + + + | Home Phone [...] Providers + +------+ + | Care Steam Trap Worker Name | Role | Phone | [...] | | | | | Ave Mailcode: [facility] | [place], [place] | | | | | [facility] | [address] | | | | | Health and Healing, | [phone] | | | | | [place] [address] | | | | | | [place], [place] | | | | | | [address] | | | | | | [phone] | | | +--------+ + + + [...] Discharge Instructions Instructions Darlin Doyle RN - 12/14/2016[facility] Instructions after Colonoscopy You may resume [...] on weekends and holidays call the Hospital Assignment Desk Assistant toll free 1- [phone] Ext. [phone] or and have the GI doctor superintendent sanitation paged. The provider who performed your procedure [...] Farah is a 26 y.o. female MR# [id number] presents today for colonoscopy NPO since midnight [...]
--- OUTSIDE RECORDS SUMMARY | ~2020-06-23 | XMS | Encounter Summary ---
Demographics + + + | Address | [address] | | | [place] [address] | + + + | Home Phone [...] Providers + +------+ + | Care Mining Plant Operator Name | Role | Phone [...] | | [facility] | [place], [place] | | | | | Health and Healing, | [address] | | | | | | [phone] | | | | | [place], [place] | | | | | | [address] | | | | | | [phone] | | | +--------+ + + + [...] Note | + + | Service Account, [employer] Res In Interface - 03/08/2018 9:42 AM [...]
--- OUTSIDE RECORDS SUMMARY | ~2020-06-23 | XMS | Encounter Summary ---
Demographics + + + | Address | [address] | | | [place] [address] | + + + | Home Phone [...] Team Providers + +------+ + | Care Grit Removal Operator Name | Role | Phone | + +------+ + | Justo Vazquez MD | PCP | | + +------+ + Encounter Details +--------+ + + + + | Date | Type | Department | Care Team | Description | +--------+ + + + + | 04/03/ | Telephone | [facility] | Alex Sanchez, | | | 2019 | | Pain Center at | ,PhD [address] | | | | | [facility] | [address] | | | | | [address] | [place], [place] | | | | | [place] for [facility] | [address] | | | | | and Healing, | [phone] | | | | | | | | | | | Floor [place], [place] | | | | | | [address] | | | | | | [phone] | | | +--------+ + + + [...]
--- OUTSIDE RECORDS SUMMARY | ~2020-06-23 | XMS | Encounter Summary ---
Demographics + + + | Address | [address] | | | [place] [address] | + + + | Home Phone [...] Providers + +------+ + | Care Roll Repairer Name | Role | Phone | [...] Center at [facility] [address] | MD Melissa | Marker instructions) | | | | [address] [facility] | | | | | | for Health and | | | | | | Healing, Building [address] | | | | | | [place], [place] | | | | | | [address] | | | | | | [phone] | | | +--------+ + + + [...]
--- OUTSIDE RECORDS SUMMARY | ~2020-06-23 | XMS | Encounter Summary ---
Demographics + + + | Address | [address] | | | [place] [address] | + + + | Home Phone [...] Team Providers + +------+ + | Care German Professor Name | Role | Phone | [...] | | | | regional | ,PhD [address] | | | | | | pain | [address] | | | | | | syndrome | [address] | | | | | | type 1 of | Rd | | | | | | left lower | [place], [place] | | | | | | extremity | [address] | | | | | | Procedures | Phone: | | | | | | CONSULT TO | [phone] | | | | | | ORTHOPEDICS | Fax: | | | | | | AND | [phone] | | | | | | REHABILITATI | | | | | | | ON | | | +--------+--------+ + + + + Encounter Details +--------+ + + + + | Date | Type | Department | Care Team | Description | +--------+ + + + + | 06/08/ | Enforcement Manager | [facility] | Alex Sanchez, | Complex regional | | 2019 | | Pain Center at | ,PhD [address] [facility] | pain syndrome type 1 | | | | [facility] | [facility] [address] | of left lower | | | | [address] | [place], [place] | extremity (Primary | | | | Center for Health | [address] | Dx) | | | | and Healing, | [phone] | | | | | | | | | | | Floor [place], [place] | | | | | | [address] | | | | | | [phone] | | | +--------+ + + + [...]
--- OUTSIDE RECORDS SUMMARY | ~2020-06-23 | XMS | Encounter Summary ---
Demographics + + + | Address | [address] | | | [place] [address] | + + + | Home Phone [...] Providers + +------+ + | Care Etcher Aircraft Name | Role | Phone | + [...] | | | [address] | [facility] | | | | | [place], [place] | [place], [place] | | | | | [address] | [address] | | | | | | [phone] | | | | | | | [...] | + +--------+ + + + | SAMPLE BOX MAKER MISC PROCEDURE | Routin | 12/27/2017 | Complex regional | Results for this | | | e | 3:28 PM | pain syndrome type 1 | procedure are in the | | | | PST | of left lower | results section. | | | | | extremity | | + +--------+ + + + documented in this encounter Results [facility] MISC PROCEDURE (12/27/2017 3:28 PM PST) [...]
--- OUTSIDE RECORDS SUMMARY | ~2020-06-23 | XMS | Encounter Summary ---
Demographics + + + | Address | [address] | | | [place] [address] [...] Team Providers + +------+ + | Care Spray Dyer Name | Role | Phone | [...] + + | 06/07/ | Telephone | [facility] Ilene | Ilene Bright, | Care Coordination | | 2016 | | Pain Center at | CHILD MONITOR [address] | | | | | [facility] | [place], [place] | | | | | [address] | [address] | | | | | [facility] | [phone] | | | | | and Healing, | | | | | | Building , | | | | | | Floor [place], [place] | | | | | | [address] | | | | | | [phone] | | | +--------+ + + + [...]
--- OUTSIDE RECORDS SUMMARY | ~2020-06-23 | XMS | Encounter Summary ---
[...] Providers + +------+ + | Care Client Delivery Specialist Name | Role | Phone | + +------+ + | Justo Vazquez MD | PCP | | + +------+ + Encounter Details +--------+ + + + + | Date | Type | Department | Care Team | Description | +--------+ + + + + | 03/12/ | Environmental Compliance Manager | [facility] Comprehensive | Alex Sanchez, | Complex regional | | 2019 | | Pain Center at | ,PhD [address] [facility] | pain syndrome type 1 | | | | [facility] | [address] | of left lower | | | | [address] | [place], [place] | extremity; S/P | | | | Center for Health | [address] | insertion of spinal | | | | and Healing, | [phone] | cord stimulator | | | | | | | | | | Floor [place], [place] | | | | | | [address] | | | | | | [phone] | | | +--------+ + + + [...]
--- OUTSIDE RECORDS SUMMARY | ~2020-06-23 | XMS | Encounter Summary ---
Demographics + + + | Address | [address] | | | [place] [address] | + + + | Home Phone [...] Providers + +------+ + | Care Insulation Machine Operator Name | Role | Phone [...] | Diagnoses | Beulah | Edu Pt Bench Scientist | | | | Therapy | CRPS | Janak Martinez MD | [address] | | | | | (complex | [address] | | | | | regional | [address] | Mailcode: | | | | | pain | Mailstop | [facility] | | | | | syndrome), | [id number] | for Health | | | | | lower limb | [place], [place] | and Healing, | | | | | Gait | [address] | Building [address] | | | | | disturbance | Phone: | [place], [place] | | | | | Muscle pain | [phone] | [address] | | | | | Procedures | Fax: | Phone: | | | | | PHYSICAL | [phone] | [phone] | | | | | THERAPY | [...] | | | | [address] [place] | [place] [address] | syndrome), lower | | | | [address] | [phone] | limb (Primary Dx) | | | | [facility] | | | | | | and Healing, | | | | | | Building 1, | | | | | | Floor [place], [place] | | | | | | [address] | | | | | | [phone] | | | +--------+---------+ + + + [...] might be different f rom the original. [id number] BRODY FARAH Date of : 1990 Start of care: 02/14/2012 Date of onset: 02/14/2012 Referring/Attending Practitioner: Janak Riojas MD . Primary/Referral Diagnosis/ICD-9: 355.71B CRPS (complex regional pain syndrome), lower limb Insurance: Payor: [facility] Plan: BCBS OUT OF STATE Product Type: PP O Service period from: 02/14/2012 to: 08/12/2012 Number visits used/authorized: 12/26 [facility] PHYSICAL THERAPY PROGRESS NOTE SUBJECTIVE: Age: 21 y.o. Sex: female Chief complaint: No chief complaint on file. 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 She is doing much better ov [facility], possibly because she finished school and so has less stress. She stopped using crutch es in early April (18 days ago) which is less stressful. Now she is working at [employer] 2-3 hours per week, and spends a [...] change in their status. Guillermo Sanon MSPBren [facility] Outpatient Rehabilitation Services Mailcode: Ch3p [address] [facility], 1st Floor [facility] [address] documented in this encounter Plan of Treatment Not on filedocumented as of this encounter Procedures + +--------+ + + + | Procedure Name | Priori | Date/Time | Associated Diagnosis | Comments | | | ty | | | | + +--------+ + + + | NM THERAPEUTIC | Routin | 05/03/2012 | CRPS [...]
--- OUTSIDE RECORDS SUMMARY | ~2020-06-23 | XMS | Encounter Summary ---
Demographics + + + | Address | [address] | | | [place] [address] | + + + | Home Phone [...] Providers + +------+ + | Care Marker Shipments Name | Role | Phone | + [...] + + | 10/07/ | Telephone | [facility] Comprehensive | Yosef Kenney MD | Wound infection | | 2018 | | Pain Center at | [address] | (Concern for DRG | | | | [facility] | [address] [place], | trial wound | | | | [address] | [place] [address] | infection) | | | | [place] [facility] | [phone] | | | | | and Healing, | | | | | | | | | | | | [place], [place] | | | | | | [address] | | | | | | [phone] | | | +--------+ + + + [...]
--- OUTSIDE RECORDS SUMMARY | ~2020-06-23 | XMS | Encounter Summary ---
Demographics + + + | Address | [address] | | | [place] [address] | + + + | Home Phone [...] Team Providers + +------+ + | Care Transit Mixer Operator Name | Role | Phone [...] | | | | | syndrome | [facility] | | | | | type 1 of | Rd | Rd [place], | | | | | left lower | [facility], [place] | [place] | | | | | extremity | [address] | [address] | | | | | Procedures | Phone: | Phone: | | | | | REQUEST TO | [phone] | [phone] | | | | | SURGERY | Fax: | Fax: | | | | | POT FLUXER | [phone] | [phone] | +--------+---------+ + + + + Reason [...] | | | | | Procedures | [place], [place] | [place], | | | | | CONSULT TO | [address] | [place] | | | | | PAIN | | [address] | | | | | MANAGEMENT | | Phone: | | | | | | | [phone] | | | | | | | Fax: | | | | | | | [phone] | +--------+--------+ + + + + Encounter Details +--------+---------+ + + + | Date | Type | Department | Care Team | Description | +--------+---------+ + + + | 10/09/ | Office | [facility] | Alex Sanchez, | Complex regional | | 2018 | Visit | Pain Center at | ,PhD [address] [facility] | pain syndrome type 1 | | | | [facility] | [facility] [facility] [address] | of left lower | | | | [address] | [place], [place] | extremity (Primary | | | | [place] for [facility] | [address] | Dx) | | | | and Healing, | [phone] | | | | | | | | | | | Floor [place], [place] | | | | | | [address] | | | | | | [phone] | | | +--------+---------+ + + + [...] with an external order to see a duplication specialist today. Please p resent this referral [...] insurance. PRE-PROCEDURE INSTRUCTIONS 1. Please bring a delivery driver/customer service with you as we may give you [...] or blood thinning medications (other than aspirin), mather hospital doctor who is doing your procedure will communicate with the provider who is prescribing y our anticoagulant therapy. If you do not have clear instructions on what to do with your an ticoagulant by 2 weeks before your procedure, please contact [facility] to cl arify your instructions. The phone number for questions or concerns is [phone]. documented in this encounter Progress Notes Alex [...] Alex Sanchez MD,PhD [facility] [place] [facility]ane[facility]ron[facility] signed by Alex Sanchez MD,PhD at 09/15 [...] Person MD - 10/09/2018 10:00 AM PST [facility] Return Visit Date: 10/09/2018 Chief Complaint Patient presents with Back pain Low back pain Pain in left leg Knee pain Ankle pain Foot pain History of Present Illness: Tracie Farah is a 28 year old female, whose last appoi ntment at the [facility] [place] was September 28, 2018, for a clinic visit with Yun Frey NP. At that time our plans were: Recommendations/Plan: 1. Recommend to keep her appointment with Dr. Sanchez on 10/02/2018. 2. To contact the [place]'s rep if she has any further question [...] She went into the emergency room in [place], [place] where they rem cady the leads. She [...] which she suspects also used dissolvable stitches. EDITORIAL CLERK Brief Pain Inventory: (ten= worst possible pain [...] Hemroidectomy Trial spinal cord stimulator leads 08/02/2012 [facility], Surgeon: Janak Riojas MD Cholecystectomy Appendectomy Other [...] a light load. Has been working at [employer], can' t work on [employer]. Has roommates. Allergies Allergen Reactions Morphine Anaphylaxis [...] the vein (IV) every eight hour s. 7914-1832-60 COMPOUNDED MED RX CONTROLLED (SEE ADMIN INSTRUCT [...] by physician. Concentration is 150mg/mL. Compounded by [employer] ) KETOROLAC IM Inject into the muscle [...] (IV) every twel ve hours as needed. 9925-4107-73 ONDANSETRON 4 MG DISINTEGRATING TABLET Dissolve 1 [...] and summary of old medical records (source: [employer]), as summarized in the body of the [...] Valerio MD PAIN CENTER AT [facility] [address]TH [address] [facility] Mail Code: [address] [place] [address] [phone] signed by Alex Sanchez MD,PhD at 10/10/2018 9:27 AM [facility] umented in this encounter Plan of Treatment Not on filedocumented as of this encounter Visit Diagnoses + + | Diagnosis | + + | Complex regional pain syndrome type 1 of left lower extremity - Primary | + + documented in this encounter
--- OUTSIDE RECORDS SUMMARY | ~2020-06-23 | XMS | Encounter Summary ---
Demographics + + + | Address | [address] | | | [place] [address] | + + + | Home Phone [...] Providers + +------+ + | Care Science Liaison Name | Role | Phone | [...] 2016 | | Center at [facility] [address] | MD Melissa | | | | | [address] [place] | | | | | | for Health and | | | | | | Healing, Building [address] | | | | | | [place], [place] | | | | | | [address] | | | | | | [phone] | | | +--------+ + + + [...]
--- OUTSIDE RECORDS SUMMARY | ~2020-06-23 | XMS | Encounter Summary ---
Demographics + + + | Address | [address] | | | [place] [address] | + + + | Home Phone [...] Team Providers + +------+ + | Care Agriscience Technology Instructor Name | Role | Phone | [...] | 2015 | Encounter | Center at [facility] [address] | MD Melissa | | | | | [address] [facility] | | | | | | for Health and | | | | | | Healing, Building [address] | | | | | | [place], [place] | | | | | | [address] | | | | | | [phone] | | | +--------+ + + + [...]
--- OUTSIDE RECORDS SUMMARY | ~2020-06-23 | XMS | Encounter Summary ---
Demographics + + + | Address | [address] | | | [place] [address] [...] Providers + +------+ + | Care Payroll Benefits Clerk Name | Role | Phone | + +------+ + | Justo Vazquez MD | PCP | | + +------+ + Encounter Details +--------+ + + + + | Date | Type | Department | Care Team | Description | +--------+ + + + + | 03/17/ | MyChart | [facility] Comprehensive | Yun Frey NP | Welcome | | 2017 | Encounter | Pain Center at | [address] | | | | | [facility] | [place], [place] | | | | | [address] | [address] | | | | | [place] for [facility] | [phone] | | | | | and Healing, | | | | | | | | | | | | Floor [place], [place] | | | | | | [address] | | | | | | [phone] | | | +--------+ + + + [...]
--- OUTSIDE RECORDS SUMMARY | ~2020-06-23 | XMS | Encounter Summary ---
Demographics + + + | Address | [address] | | | [place] [address] | + + + | Home Phone [...] Providers + +------+ + | Care Fish Straightener Name | Role | Phone | + [...] 2017 | | Pain Center at | INSTITUTION DIRECTOR [address] | | | | | [facility] | [place], [place] | | | | | [address] | [address] | | | | | [facility] | [phone] | | | | | and Healing, | | | | | | Building | | | | | | [facility] [place] | | | | | | [address] | | | | | | [phone] | | | +--------+ + + + [...]
--- OUTSIDE RECORDS SUMMARY | ~2020-06-23 | XMS | Encounter Summary ---
Demographics + + + | Address | [address] | | | [place] [address] | + + + | Home Phone [...] Providers + +------+ + | Care Manager Copy Name | Role | Phone | + [...] Rd | | | | | | [place], [place] | | | | | | [address] | | | +--------+ + + + [...]
--- OUTSIDE RECORDS SUMMARY | ~2020-06-23 | XMS | Encounter Summary ---
Demographics + + + | Address | [address] | | | [place] [address] | + + + | Home Phone [...] Providers + +------+ + | Care Electronic News Gathering Camera Person Name | Role | Phone | [...] | syndrome | [address] | [facility] | | | | | type 1 of | Rd | Rd [place], | | | | | left lower | [place], [place] | [place] | | | | | extremity | [address] | [address] | | | | | Procedures | Phone: | Phone: | | | | | REQUEST TO | [phone] | [phone] | | | | | SURGERY | Fax: | Fax: | | | | | [employer] [facility] | [phone] | [phone] | +--------+---------+ + + + + Encounter Details +--------+---------+ + + + | Date | Type | Department | Care Team | Description | +--------+---------+ + + + | 09/28/ | Office | [facility] Comprehensive | Yun Frey, ADJUNCT FACULTY FOR MEDICAL TERMINOLOGY | Complex regional | | 2018 | Visit | Pain Center at | [address] | pain syndrome type 1 | | | | [place] | [place], [place] | of left lower | | | | [address] | [address] | extremity (Primary | | | | [facility] | [phone] | Dx); Arthralgia of | | | | and Healing, | | left lower leg | | | | | | | | | | [place], [place] | | | | | | [address] | | | | | | [phone] | | | +--------+---------+ + + + [...] Dr. Sanchez on 10/02/2018. -Please contact the [facility] rep if you have any further question [...] PM PST September 28, 2018 Tracie Farah [id number] [facility] Comprehensive Pain Center Return [...] and a pain drawing which I reviewed. [facility] Questionnaire Follow-up Patient 10/10/2017 Please [...] PROCEDURE: DRG Spinal Cord Stimuation Trial with [employer]. [facility] system LEVEL/LATERALITY: left L4, L5. Till date, [...] turned up to 7%. After seeing th customer support representative today and killian ing adjustments, she [...] Hemroidectomy Trial spinal cord stimulator leads 08/02/2012 [facility], Surgeon: Janak Riojas MD Cholecystectomy Appendectomy Other [...] the vein (IV) every eight hour s. 9924-5710-81 COMPOUNDED MED RX CONTROLLED (SEE ADMIN INSTRUCT [...] by physician. Concentration is 150mg/mL. Compounded by [facility] ) KETOROLAC IM Inject into the [...] (IV) every twel ve hours as needed. 9765-1250-36 ONDANSETRON 4 MG DISINTEGRATING TABLET Dissolve 1 tablet in mouth every twelve hours as nee ded. PANTOPRAZOLE 40 MG TABLET,DELAYED RELEASE Take 40 mg by mouth once daily. PEG 3350-ELECTROLYTES 236 GRAM-22.74 GRAM-6.74 GRAM-5.86 GRAM SOLUTION Take as directed by [facility] Digestive [facility]- 2 gallon bowel prep POLYETHYLENE [...] been given programming opti ons by the [employer] device customer support representative, Michele. At this time, there is no complication from the DRG trial. Recommendations/Plan: 1. Recommend to keep her appointment with Dr. Sanchez on 10/02/2018. 2. To contact the [employer] rep if she has any further question on programming. 09/28/2018: I, Dayana Ivan, am functioning as a manager medical for Yun Frey NP. I have reviewed and verified the above scribed note of my visit with this patient as record ed by Ms. Dayana Ivan. Jeanine Frey (Mr.) MSN, ACNP- Nurse Practitioner Acute Pain Service /[facility] [address] [place] [address] documented in this enco unter Plan of [...]
--- OUTSIDE RECORDS SUMMARY | ~2020-06-23 | XMS | Encounter Summary ---
Demographics + + + | Address | [address] | | | [place] [address] | + + + | Home Phone [...] Team Providers + +------+ + | Care Tin Assorter Name | Role | Phone | + +------+ + | Justo Vazquez MD | PCP | | + +------+ + Encounter Details +--------+ + + + + | Date | Type | Department | Care Team | Description | +--------+ + + + + | 03/23/ | MyChart | [facility] | [place] Bright, | Welcome | | 2017 | Encounter | Pain Center at | HAND CLOTH EXAMINER [address] | | | | | [facility] | [place], [place] | | | | | [address] | [address] | | | | | [place] for [facility] | [phone] | | | | | and Healing, | | | | | | | | | | | | Floor [place], [place] | | | | | | [address] | | | | | | [phone] | | | +--------+ + + + [...]
--- OUTSIDE RECORDS SUMMARY | ~2020-06-23 | XMS | Encounter Summary ---
Demographics + + + | Address | [address] | | | [place] [address] | + + + | Home Phone [...] Team Providers + +------+ + | Care Piggery Worker Name | Role | Phone | [...] | Diagnoses | [place]ulah | Edu Pt Machine Installer | | | | Therapy | CRPS | Janak Martinez MD | [address] | | | | | (complex | [address] | | | | | regional | [address] | Mailcode: | | | | | pain | Mailstop | [facility] | | | | | syndrome), | [id number] | for Health | | | | | lower limb | [place], [place] | and Healing, | | | | | Gait | [address] | [address] | | | | | disturbance | Phone: | [place], [place] | | | | | Muscle pain | [phone] | [address] | | | | | Procedures | Fax: | Phone: | | | | | PHYSICAL | [phone] | [phone] | | | | | THERAPY | [...] | | | | [place] | [place] [address] | syndrome), lower | | | | [address] | [phone] | limb (Primary Dx) | | | | [facility] | | | | | | and Healing, | | | | | | Building [address], | | | | | | Floor [place], [place] | | | | | | [address] | | | | | | [phone] | | | +--------+---------+ + + + [...] might be different f rom the original. [id number] BRODY FARAH Date of : 1990 Start of care: 02/14/2012 Date of onset: 02/14/2012 Referring/Attending Practitioner: Janak Riojas MD . Primary/Referral Diagnosis/ICD-9: 355.71B CRPS (complex regional pain syndrome), lower limb Insurance: [facility] Plan: BCBS OUT OF STATE Product Type: PP O Service period from: 02/14/2012 to: 08/12/2012 Number visits used/authorized: 03/25 [facility] PHYSICAL THERAPY PROGRESS NOTE SUBJECTIVE: Age: [...] any change in their status. Guillermo Sanon [facility] Services Mailcode: [facility] [address] [facility], [address] [place] [phone] documented in this encounter Plan of Treatment Not on filedocumented as of this encounter Procedures + +--------+ + + + | Procedure Name | Priori | Date/Time | Associated Diagnosis | Comments | | | ty | | | | + +--------+ + + + | CO MANUAL THER | Routin | 06/05/2012 | CRPS (complex | | | TECH,1+REGIONS,EA 15 | e | 5:15 PM | regional pain | | | MIN | | PDT | syndrome), lower | | | | | | limb | | + +--------+ + + + | CO THERAPEUTIC | Routin | 06/05/2012 | CRPS [...]
--- OUTSIDE RECORDS SUMMARY | ~2020-06-23 | XMS | Encounter Summary ---
Demographics + + + | Address | [address] | | | [place] [address] | + + + | Home Phone [...] Providers + +------+ + | Care Plant Specialist Name | Role | Phone | [...] [address] | | | | | | [place], [place] | | | | | | [address] | | | +--------+ + + + [...]
--- OUTSIDE RECORDS SUMMARY | ~2020-06-23 | XMS | Encounter Summary ---
Demographics + + + | Address | [address] | | | [place] [address] | + + + | Home Phone | | + + + | Preferred Language | Unknown | + + + | Marital Status | Single | + + + | Restorationism Affiliation | 1073 | + + + | Race | Unknown | + + + | Ethnic Group | Unknown | + + + Author + + + | Author | [facility] | | | and [place] | + + + | Organization | [facility] | | | and [place] [...] [place] | | | | | [address] | | + + + + + | Bryant Farah | ECON | Unknown | | + + + + + Care Team Providers + +------+ + | Care Poleyard Supervisor Name | Role | Phone | + +------+ + PCP | Unavailable | + +------+ + Encounter Details +--------+ + + + + | Date | Type | Department | Care Team | Description | +--------+ + + + + | 06/22/ | Emergency | [facility] | Chung Portillo | Nondiabetic | | 2016 | | MEDICAL CENTER | DO [address] | gastroparesis | | | | EMERGENCY CENTER | [address] | | | | | [address] | [place], [place] | | | | | [place], [place] | [address] | | | | | [address] | [phone] | | | | | [phone] | | | +--------+ + + + [...] 06/23/161053 Date of Service: 06/23/161053 Status: Signed Career Development Coordinator: Deavnte Guerrero MD (Physician) Procedures Additional Documentation Procedures Pharmacy called to clarify viscous lidocaine order - there was no frequency specified. I a dvised Q 4 hours PRN. Devante Guerrero MD 06/23/161053 John Mcgee PA-C - 06/22/2016 7:25 PM PDT ED Provider Notes by John Leonard PA-C at 06/22/161924 Author: John Leonard PA-C Service: Emergency Department Author Type: Physician Corn Cutter - Certified Filed: 06/22/162104 Date of Service: 06/22/161924 Status: Signed Career Development Coordinator: John Leonard PA-C (Physician Corn Cutter - Certified) Cosigner: Chung Portillo DO at 06/22/16 2312 Procedures [facility] EM[facility]ENCY [facility] History of Present Illness Patient [...] department evaluations and treatment with Reglan at [facility] and has come to [facility] for, further evaluation and relief. Patient relates that she does not have a can runner follow-up or provider. Past Medical History Diagnosis [...] TRIAL; Surgeon: Ulices Hayes MD; Locati on: [facility]; Service: Pain Management; Laterality: [...] is afebrile and nontoxic-appearing at this ti ak. Records Reviewed Nursing notes. Labs & Radiology Results Laboratory Evaluation Results Procedure Component Value Ref Range Date/Time Lactic acid [[id number]] Collected: 06/22/161850 Order Status: Completed Specimen Information: Blood Updated: 06/22/162010 LACTIC ACID 1.2 0.4 - 2.0 mmol/L Magnesium [[id number]] Collected: 06/22/161850 Order Status: Completed Specimen Information: Blood Updated: 06/22/162008 MAGNESIUM 2.1 1.7 - 2.4 mg/dL Phosphorus [[id number]] Collected: 06/22/161850 Order Status: Completed Specimen Information: Blood Updated: 06/22/162008 PHOSPHORUS 3.6 2.3 - 4.8 mg/dL Lipase [[id number]] Collected: 06/22/161850 Order Status: Completed Specimen Information: Blood Updated: 06/22/161926 LIPASE 103 73 - 393 U/L Comprehensive metabolic panel [[id number]] (Abnormal) Collected: 06/22/161850 Order Status: Completed Specimen [...] 65 U/L EGFR >60 >60 mL/min/1.73m2 Amylase [[id number]] Collected: 06/22/161850 Order Status: Completed Specimen Information: Blood Updated: 06/22/161926 AMYLASE 39 25 - 115 U/L C-reactive protein [[id number]] Collected: 06/22/161850 Order Status: Completed Specimen Information: Blood Updated: 06/22/161926 CRP <0.3 <0.5 mg/dL CBC with differential [[id number]] Collected: 06/22/161850 Order Status: Completed Specimen Information: [...] K/uL Urinalysis (reflex to micro/reflex to culture) [[id number]] Collected: 06/22/161848 Order Status: Completed Specimen Information: Urine, Clean Catch Updated: 06/22/16 19 09 COLOR UA STRAW CLARITY CLEAR Specific [place], UA 1.005 1.002 - 1.030 LEUKOCYTE ESTERASE NEGATIVE NEGATIVE NITRITE NEGATIVE NEGATIVE UROBILINOGEN NORMAL <1.1 mg/dL PROTEIN NEGATIVE NEGATIVE mg/dL PH,URINE 7.0 5.0 - 8.0 BLOOD NEGATIVE NEGATIVE KETONES NEGATIVE NEGATIVE mg/dL BILIRUBIN NEGATIVE NEGATIVE GLUCOSE NEGATIVE NEGATIVE mg/dL Urine Test [[id number]] Collected: 06/22/161848 Order Status: Completed Specimen Information: [...] as soon as possible for a visit [address] [place] [address] Allegra Chaudhary PA-C In 1 week [address] [place] [id number] [facility] Emergency Department If symptoms worsen [address] [place] [address] [id number] Discharge Medications: Discharge Medication List as of [...] 06/22/161745 Date of Service: 06/22/161745 Status: Signed Career Development Coordinator: Sd Comer RN (Registered Nurse) Patient given [...] EXTERNAL | | | | performed at [facility];888 | K/uL | LAB | | | | [address];[place] | | | | | | [address] | | | | + + + + + + | Non- | 4.46Comment: Testing | 3.70 - 5.10 | EXTERNAL | | | Red Blood | performed at [facility];888 | M/uL | LAB | | | Cells | [address];[place] | | | | | Counted | [address] | | | | + + + + + + | Hemoglobin | 13.9Comment: Testing | 11.3 - 15.5 | EXTERNAL | | | | performed at [facility];888 | g/dL | LAB | | | | [address];[place] | | | | | | [address] | | | | + + + + + + | Hematocrit, | 41.0Comment: Testing | 34.0 - 46.0 % | EXTERNAL | | | POC | performed at [facility];888 | | LAB | | | | [address];[place] | | | | | | [address] | | | | + + + + + + | MCV | 91.9Comment: Testing | 80.0 - 100.0 fl | EXTERNAL | | | | performed at [facility];[address] | | LAB | | | | [address];[place] | | | | | | [address] | | | | + + + + + + | MCH | 31.1Comment: Testing | 27.0 - 34.0 pg | EXTERNAL | | | | performed at [facility];[address] | | LAB | | | | [address];[place] | | | | | | [address] | | | | + + + + + + | MCHC | 33.9Comment: Testing | 32.0 - 35.5 | EXTERNAL | | | | performed at [facility];888 | g/dL | LAB | | | | [address];[place] | | | | | | [address] | | | | + + + + + + | RDW-CV | 40.3Comment: Testing | 37 - 53 fl | EXTERNAL | | | | performed at [facility];888 | | LAB | | | | [address];[place] | | | | | | [address] | | | | + + + + + + | Platelet | 203Comment: Testing | 150 - 400 K/uL | EXTERNAL | | | Count | performed at [facility];888 | | LAB | | | Plasma | [address];[place] | | | | | | [address] | | | | + + + + + + | MPV | 8.3Comment: Testing | fl | EXTERNAL | | | | performed at [facility];888 | | LAB | | | | [address];[place] | | | | | | [address] | | | | + + + + + + | Differentia | AUTOMATEDComment: | | EXTERNAL | | | l Type | Testing performed at | | LAB | | | | [facility];[address];[place] [address] | | | | + + + + + + | % Segmented | 65.86Comment: Testing | % | EXTERNAL | | | | performed at [facility];888 | | LAB | | | Neutrophils | [address];[place] | | | | | | [address] | | | | + + + + + + | % | 25.52Comment: Testing | % | EXTERNAL | | | Lymphocytes | performed at [facility];888 | | LAB | | | | [address];[place] | | | | | | [address] | | | | + + + + + + | % Monocytes | 6.38Comment: Testing | % | EXTERNAL | | | | performed at [facility];[address] | | LAB | | | | [address];[place] | | | | | | [address] | | | | + + + + + + | % | 1.61Comment: Testing | % | EXTERNAL | | | Eosinophils | performed at [facility];[address] | | LAB | | | | [address];[place] | | | | | | [address] | | | | + + + + + + | % Basophils | 0.63Comment: Testing | % | EXTERNAL | | | | performed at [facility];[address] | | LAB | | | | [address];[place] | | | | | | [address] | | | | + + + + + + | Absolute | 6.91Comment: Testing | 1.90 - 7.40 | EXTERNAL | | | Segmented | performed at [facility];888 | K/uL | LAB | | | Neutrophils | [address];[place] | | | | | | [address] | | | | + + + + + + | Absolute | 2.68Comment: Testing | 1.00 - 3.90 | EXTERNAL | | | Lymphocytes | performed at [facility];888 | K/uL | LAB | | | | [address];[place] | | | | | | [address] | | | | + + + + + + | Absolute | 0.67Comment: Testing | 0.00 - 0.80 | EXTERNAL | | | Monocytes | performed at [facility];888 | K/uL | LAB | | | | [address];[place] | | | | | | [address] | | | | + + + + + + | Absolute | 0.17Comment: Testing | 0.00 - 0.50 | EXTERNAL | | | Eosinophils | performed at [facility];888 | K/uL | LAB | | | | [address];[place] | | | | | | [address] | | | | + + + + + + | Absolute | 0.07Comment: Testing | 0.00 - 0.10 | EXTERNAL | | | Basophils | performed at [facility];888 | K/uL | LAB | | | | [address];[place], [place] | | | | | | [address] | | | | + + + [...] EXTERNAL | | | | performed at [facility] | | LAB | | | | [address];[place], [place] | | | | | | [address] | | | | + + + [...] EXTERNAL | | | | performed at [facility];888 | | LAB | | | | [address];[place] | | | | | | [address] | | | | + + + [...] LAB | | | | performed at [facility];[address] | | | | | | [address];[place], [place] | | | | | | [address] | | | | + + + [...] EXTERNAL | | | | performed at [facility];8 | | LAB | | | | [address];[place] | | | | | | [address] | | | | + + + [...] EXTERNAL | | | | performed at [facility];888 | mmol/L | LAB | | | | [address];[place], [place] | | | | | | [address] | | | | + + + [...] EXTERNAL | | | | performed at [facility];888 | | LAB | | | | [address];[place] | | | | | | [address] | | | | + + + [...] EXTERNAL | | | | performed at [facility];888 | mmol/L | LAB | | | | [address];[place] | | | | | | [address] | | | | + + + + + + | K | 3.8Comment: Testing | 3.5 - 4.9 | EXTERNAL | | | | performed at [facility];888 | mmol/L | LAB | | | | [address];[place] | | | | | | [address] | | | | + + + + + + | Cl | 104Comment: Testing | 99 - 109 mmol/L | EXTERNAL | | | | performed at [facility];[address] | | LAB | | | | [address];[place] | | | | | | [address] | | | | + + + + + + | CO2 | 27Comment: Testing | 23 - 32 mmol/L | EXTERNAL | | | | performed at [facility];[address] | | LAB | | | | [address];[place] | | | | | | [address] | | | | + + + + + + | Anion Gap | 12Comment: Testing | 5 - 20 mmol/L | EXTERNAL | | | | performed at [facility];[address] | | LAB | | | | [address];[place] | | | | | | [address] | | | | + + + + + + | Glucose, | 80Comment: Testing | 65 - 99 mg/dL | EXTERNAL | | | Fasting | performed at [facility];[address] | | LAB | | | | [address];[place] | | | | | | [address] | | | | + + + + + + | BUN | 4 (L)Comment: Testing | 8 - 25 mg/dL | EXTERNAL | | | | performed at [facility];[address] | | LAB | | | | [address];[place] | | | | | | [address] | | | | + + + + + + | Creatinine | 0.83Comment: Testing | 0.50 - 1.00 | EXTERNAL | | | | performed at [facility];888 | mg/dL | LAB | | | | [address];[place] | | | | | | [address] | | | | + + + + + + | BUN/Creatin | 5Comment: Testing | | EXTERNAL | | | ine Ratio | performed at [facility];888 | | LAB | | | | [address];[place] | | | | | | [address] | | | | + + + + + + | Calcium | 9.1Comment: Testing | 8.5 - 10.5 | EXTERNAL | | | | performed at [facility];888 | mg/dL | LAB | | | | [address];[place] | | | | | | [address] | | | | + + + + + + | Protein, | 7.4Comment: Testing | 6.3 - 8.2 g/dL | EXTERNAL | | | Total | performed at [facility];888 | | LAB | | | | [address];[place] | | | | | | [address] | | | | + + + + + + | Albumin | 4.5Comment: Testing | 3.6 - 5.0 g/dL | EXTERNAL | | | | performed at [facility];888 | | LAB | | | | [address];[place] | | | | | | [address] | | | | + + + + + + | Globulin | 3.0Comment: Testing | 1.3 - 4.9 g/dL | EXTERNAL | | | | performed at [facility];888 | | LAB | | | | [address];[place] | | | | | | [address] | | | | + + + + + + | A/G Ratio | 1.5Comment: Testing | 1.0 - 2.4 | EXTERNAL | | | | performed at [facility];888 | | LAB | | | | [address];[place] | | | | | | [address] | | | | + + + + + + | Bilirubin | 0.6Comment: Testing | 0.1 - 1.5 mg/dL | EXTERNAL | | | Total | performed at [facility];888 | | LAB | | | | [address];[place] | | | | | | [address] | | | | + + + + + + | ALP, | 61Comment: Testing | 35 - 115 U/L | EXTERNAL | | | External | performed at [facility];[address] | | LAB | | | | [address];[place] | | | | | | [address] | | | | + + + + + + | AST | 7 (L)Comment: Testing | 10 - 45 U/L | EXTERNAL | | | | performed at [facility];888 | | LAB | | | | [address];[place] | | | | | | [address] | | | | + + + + + + | ALT | 20Comment: Testing | 10 - 65 U/L | EXTERNAL | | | | performed at [facility];[address] | | LAB | | | | [address];[place] | | | | | | [address] | | | | + + + [...] | | | | | | at [facility];[address];[place] [address] | | | | + + + [...] EXTERNAL | | | | performed at [facility] | | LAB | | | | [address];[place] | | | | | | [address] | | | | + + + + + + | Clarity, | CLEARComment: Testing | | EXTERNAL | | | Urine | performed at [facility];888 | | LAB | | | | [address];[place] | | | | | | [address] | | | | + + + + + + | Specific | 1.005Comment: Testing | 1.002 - 1.030 | EXTERNAL | | | [place], | performed at [facility];888 | | LAB | | | Urine | [address];[place] | | | | | | [address] | | | | + + + + + + | Leukocyte | NEGATIVEComment: Testing | | EXTERNAL | | | Esterase, | performed at [facility];888 | | LAB | | | Urine | [address];[place] | | | | | | [address] | | | | + + + + + + | Nitrite, | NEGATIVEComment: Testing | | EXTERNAL | | | Urine | performed at [facility];888 | | LAB | | | | [address];[place] | | | | | | [address] | | | | + + + + + + | Urobilinoge | NORMALComment: Testing | mg/dL | EXTERNAL | | | n, Urine | performed at [facility];888 | | LAB | | | | [address];[place] | | | | | | [address] | | | | + + + + + + | Protein, | NEGATIVEComment: Testing | mg/dL | EXTERNAL | | | Urine | performed at [facility];888 | | LAB | | | | [address];[place] | | | | | | [address] | | | | + + + + + + | pH, Urine | 7.0Comment: Testing | 5.0 - 8.0 | EXTERNAL | | | | performed at [facility];888 | | LAB | | | | [address];[place] | | | | | | [address] | | | | + + + + + + | Blood, | NEGATIVEComment: Testing | | EXTERNAL | | | Urine | performed at [facility];888 | | LAB | | | | [address];[place] | | | | | | [address] | | | | + + + + + + | Ketones | NEGATIVEComment: Testing | mg/dL | EXTERNAL | | | | performed at [facility];[address] | | LAB | | | | [address];[place] | | | | | | [address] | | | | + + + + + + | Bilirubin, | NEGATIVEComment: Testing | | EXTERNAL | | | Urine | performed at [facility];[address] | | LAB | | | | [address];[place] | | | | | | [address] | | | | + + + + + + | Glucose, | NEGATIVEComment: Testing | mg/dL | EXTERNAL | | | Urine | performed at [facility];888 | | LAB | | | | [address];[place], [place] | | | | | | [address] | | | | + + + [...] | | | Ur | performed at [facility] | | LAB | | | | [address];[place], [place] | | | | | | [address] | | | | + + + [...]
--- OUTSIDE RECORDS SUMMARY | ~2020-06-23 | XMS | Encounter Summary ---
Demographics + + + | Address | [address] | | | [place] [address] | + + + | Home Phone [...] Team Providers + +------+ + | Care Ferry Hand Name | Role | Phone | + +------+ + | Justo Vazquez MD | PCP | | + +------+ + Encounter Details +--------+ + + + + | Date | Type | Department | Care Team | Description | +--------+ + + + + | 07/28/ | Documentati | [facility] Comprehensive | [place], | | | 2017 | on | Pain Center at | INTERNAL AUDIT SENIOR MANAGER [address] | | | | | [facility] | [facility] [place] | | | | | [address] | [address] | | | | | [place] for [facility] | [phone] | | | | | and Healing, | | | | | | | | | | | | Floor [place], [place] | | | | | | [address] | | | | | | [phone] | | | +--------+ + + + [...]
--- OUTSIDE RECORDS SUMMARY | ~2020-06-23 | XMS | Encounter Summary ---
Demographics + + + | Address | [address] | | | [place] [address] | + + + | Home Phone [...] Providers + +------+ + | Care Electrical Power Engineer Name | Role | Phone | + +------+ + | Justo Vazquez MD | PCP | | + +------+ + Encounter Details +--------+ + + + + | Date | Type | Department | Care Team | Description | +--------+ + + + + | 01/12/ | Telephone | [facility] | Kenny Gaspar MD | | | 2016 | | [place] [phone] | | | | | | [address] [facility] | | | | | | [facility] | | | | | | [facility], [address] | | | | | | [place], [place] | | | | | | [address] | | | | | | [phone] | | | +--------+ + + + [...]
--- OUTSIDE RECORDS SUMMARY | ~2020-06-23 | XMS | Encounter Summary ---
Demographics + + + | Address | [address] | | | [place] [address] | + + + | Home Phone [...] Providers + +------+ + | Care Freight Engineer Name | Role | Phone | [...] ogy | | Ava Torres, | [address] | | | | | Constipation | [address] | [place] | | | | | , | Mook Shane | [place] for | | | | | unspecified | [address] | Health and | | | | | constipation | [facility] [place] | Healing, | | | | | type | [address] | Building 2 | | | | | Procedures | | [place], [place] | | | | | CONSULT TO | | [address] | | | | | GI PROCEDURE | | Phone: | | | | | UNIT: | | [phone] | | | | | ANORECTAL | | Fax: | | | | | MANOMETRY | | [phone] | | | | | [place] ANAL | | | | | | [...] | ogy | | Vijigaldon, | Chh[address] | | | | | Gastroparesi | Allegra Niet[address], | [place] | | | | | s | [place] [address] | Center for | | | | | | [address] | Health and | | | | | | [place], | Healing, | | | | | | [place] [address] | Building 2 | | | | | | Phone: | [place], [place] | | | | | | [phone] | [address] | | | | | | Fax: | Phone: | | | | | | [phone] | [phone] | | | | | | | Fax: | | | | | | | [phone] | +--------+--------+ + + + + Encounter Details +--------+---------+ + + + | Date | Type | Department | Care Team | Description | +--------+---------+ + + + | 08/10/ | Office | Digestive Health | Ava Carbajal | Constipation, | | 2015 | Visit | Center at [facility] [address] | MD Melissa | unspecified | | | | [facility] | | constipation type | | | | for Health and | | (Primary Dx) | | | | Healing, [address] | | | | | | [place], [place] | | | | | | [address] | | | | | | [phone] | | | +--------+---------+ + + + [...] in their attached note. Celia Lin MD Side Splitteruser support analyst Division of Gastroenterology & Hepatology [facility] va Carbajal MD - 08/09/2016 8:40 PM PDT Gastroenterology Initial Clinic Note 08/09/2016 CHIEF COMPLAINT/IDENTIFICATION: "Gastroparesis"-Nausea emesis and abdominal pain -SECOND O GERMAINE Dr. Flores-Radha [facility] PCP: HANDY Villalpando HISTORY OF [...] Dr. Flores in [facility] at [facility]. Patient has hx of GERD which [...] had CT abdomen w contrast done at [facility] on 10/23/15 showing large [...] GI MDS: Dr. Nyla Garcia GI Dr. [facility] LABS: -increased CRP 06/19/16: Lipase-normal [...] form versus functional syndrome. Would also con inspector screen printing GERD as a cause for her nausea [...]
--- OUTSIDE RECORDS SUMMARY | ~2020-06-23 | XMS | Encounter Summary ---
Demographics + + + | Address | [address] | | | [place] [address] | + + + | Home Phone [...] Team Providers + +------+ + | Care Marble And Granite Polisher Name | Role | Phone | + +------+ + | Justo aVzquez MD | PCP | | + +------+ + Encounter Details +--------+ + + + + | Date | Type | Department | Care Team | Description | +--------+ + + + + | 09/25/ | Hospital | Radiology/Imaging | Aleta Rebollar MD [address] | | | 2018 | Encounter | Lab at [facility] [address] | [address] | | | | | [facility] for | [place], [place] | | | | | Health and Healing, | [address] | | | | | [address] | [phone] | | | | | Floor [place], [place] | | | | | | [address] | | | | | | [phone] | | | +--------+ + + + [...]
--- OUTSIDE RECORDS SUMMARY | ~2020-06-23 | XMS | Encounter Summary ---
Demographics + + + | Address | [address] | | | [place] [address] | + + + | Home Phone [...] Providers + +------+ + | Care Patient Sitter Name | Role | Phone | + +------+ + | Justo Vazquez MD | PCP | | + +------+ + Encounter Details +--------+ + + + + | Date | Type | Department | Care Team | Description | +--------+ + + + + | 10/19/ | Telephone | [facility] | Ilene Bright, | | | 2017 | | Pain Center at | PURCHASING SPECIALIST [address] | | | | | [facility] | [place], [place] | | | | | [address] | [address] | | | | | [place] for [place] [facility] | [phone] | | | | | and Healing, | | | | | | | | | | | | Floor [place], [place] | | | | | | [address] | | | | | | [phone] | | | +--------+ + + + [...]
--- OUTSIDE RECORDS SUMMARY | ~2020-06-23 | XMS | Encounter Summary ---
Demographics + + + | Address | [address] | | | [place] [address] | + + + | Home Phone [...] Providers + +------+ + | Care Recreational Sports Director Name | Role | Phone | + +------+ + | Justo Vazquez MD | PCP | | + +------+ + Encounter Details +--------+ + + + + | Date | Type | Department | Care Team | Description | +--------+ + + + + | 12/05/ | Pharmacy | [facility] | | | | 2019 | Visit | [facility] | | | | | | [address] | | | | | | Mailcode: [place] | | | | | | [facility] Health and | | | | | | Healing, Building 1 | | | | | | [place], [place] | | | | | | [address] | | | | | | [phone] | | | +--------+ + + + [...]
--- OUTSIDE RECORDS SUMMARY | ~2020-06-23 | XMS | Encounter Summary ---
Demographics + + + | Address | [address] | | | [place] [address] | + + + | Home Phone [...] Team Providers + +------+ + | Care Butane Compressor Operator Name | Role | Phone [...] | | | | regional | ,PhD [address] | | | | | | pain | [address] | | | | | | syndrome | [address] | | | | | | type 1 of | Rd | | | | | | left lower | [place], [place] | | | | | | extremity | [address] | | | | | | Procedures | Phone: | | | | | | CONSULT TO | [phone] | | | | | | ORTHOPEDICS | Fax: | | | | | | AND | [phone] | | | | | | REHABILITATI | | | | | | | ON | | | +--------+--------+ + + + + Encounter Details +--------+ + + + + | Date | Type | Department | Care Team | Description | +--------+ + + + + | 06/08/ | Radiagraph Operator | [facility] | Alex Sanchez, | Complex regional | | 2019 | | Pain Center at | ,PhD [address] [facility] | pain syndrome type 1 | | | | [facility] | [facility] [address] | of left lower | | | | [address] | [place], [place] | extremity (Primary | | | | Center for Health | [address] | Dx) | | | | and Healing, | [phone] | | | | | | | | | | | Floor [place], [place] | | | | | | [address] | | | | | | [phone] | | | +--------+ + + + [...]
--- OUTSIDE RECORDS SUMMARY | ~2020-06-23 | XMS | Encounter Summary ---
Demographics + + + | Address | [address] | | | [place] [address] | + + + | Home Phone [...] Providers + +------+ + | Care Cement Breaker Name | Role | Phone | [...] | | 2016 | | Center at [facility] [address] | | severe stomach Pain) | | | | [address] [facility] | | | | | | for Health and | | | | | | Healing, Building 2 | | | | | | [place], [place] | | | | | | [address] | | | | | | [phone] | | | +--------+ + + + [...]
--- OUTSIDE RECORDS SUMMARY | ~2020-06-23 | XMS | Encounter Summary ---
Demographics + + + | Address | [address] | | | [place] [address] | + + + | Home Phone [...] Providers + +------+ + | Care Fur Blowing Machine Attendant Name | Role | Phone | [...] | | | | | unspecified | [facility] | [address] | | | | | location | Rd | [facility] | | | | | Procedures | [place], [place] | Rd [place], | | | | | CONSULT TO | [address] | [place] | | | | | PAIN | | [address] | | | | | MANAGEMENT | | Phone: | | | | | | | [phone] | | | | | | | Fax: | | | | | | | [phone] | +--------+--------+ + + + + Encounter Details +--------+---------+ + + + | Date | Type | Department | Care Team | Description | +--------+---------+ + + + | 05/08/ | Office | [facility] | Alex Sanchez, | Complex regional | | 2018 | Visit | Pain Center at | ,PhD [address] | pain syndrome type 1 | | | | [place] | [facility] [address] | of left lower | | | | [address] | [place], [place] | extremity (Primary | | | | Center for Health | [address] | Dx); Pain of upper | | | | and Healing, | [phone] | abdomen; Intractable | | | | | | cyclical vomiting | | | | Floor [place], [place] | | with nausea; | | | | [address] | | Disturbance in sleep | | | | [phone] | | behavior; Abdominal | | | [...] MD,P hD - 05/08/2018 10:30 AM PDT [facility] Pain Center Return Visit Date: 05/08/2018 Chief Complaint Patient presents with Ankle pain Left Foot pain Left History of Present Illness: Tracie Farah is a 27 year old female, whose last appoi ntment at the [facility] was April 19, [...] time that 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 Goes to [employer] with a light load. Has been working at [employer], can' t work on crFoodShootr. Has roommates. Allergies Allergen Reactions Morphine Anaphylaxis [...] by physician. Concentration is 150mg/mL. Compounded by [employer] ) KETOROLAC IM Inject into the muscle [...] as directed by [facility] Digestive Health- 2 gallon bowel prep [...] and summary of old medical records (source: [employer]), as summarized in the body of the [...] by Sonia Key. Alex Sanchez MD PhD Casing Man Anesthesiology and Pain Management [facility] documented in this encounter Plan of [...]
--- OUTSIDE RECORDS SUMMARY | ~2020-06-23 | XMS | Encounter Summary ---
Demographics + + + | Address | [address] | | | [place] [address] | + + + | Home Phone [...] Providers + +------+ + | Care Ham Passer Name | Role | Phone | + [...] 2017 | | Pain Center at | TRANSFORMER REPAIRER [address] | | | | | [facility] | [place], [place] | | | | | [address] | [address] | | | | | [place] for [facility] | [phone] | | | | | and Healing, | | | | | | | | | | | | Floor [place], [place] | | | | | | [address] | | | | | | [phone] | | | +--------+ + + + [...]
--- OUTSIDE RECORDS SUMMARY | ~2020-06-23 | XMS | Encounter Summary ---
Demographics + + + | Address | [address] | | | [place] [address] | + + + | Home Phone [...] Providers + +------+ + | Care Electronic Prepress Operator Name | Role | Phone | [...] Rd | | | | | | [place], [place] | | | | | | [address] | | | +--------+ + + + [...]
--- OUTSIDE RECORDS SUMMARY | ~2020-06-23 | XMS | Encounter Summary ---
Demographics + + + | Address | [address] | | | [place] [address] | + + + | Home Phone [...] + +------+ + | Care Residential Program Worker Name | Role | Phone | [...] | Pain Center at | [address] | | | | | [facility] | [facility] [id number] | | | | | [address] | [place], [place] | | | | | Center for Health | [address] | | | | | and Healing, | [phone] | | | | | [facility] | | | | | | Floor [place], [place] | | | | | | [address] | | | | | | [phone] | | | +--------+ + + + [...]
--- OUTSIDE RECORDS SUMMARY | ~2020-06-23 | XMS | Encounter Summary ---
Demographics + + + | Address | [address] | | | [place] [address] | + + + | Home Phone [...] Providers + +------+ + | Care Basket Patcher Name | Role | Phone | + [...] + + | 12/26/ | Refill | [facility] | Alex Sanchez, | Refill Request | | 2019 | | Pain Center at | ,PhD [address] [facility] | | | | | [facility] | [address] | | | | | [address] | [place], [place] | | | | | [facility] | [address] | | | | | and Martina, | [phone] | | | | | [facility] | | | | | | Floor [place], [place] | | | | | | [address] | | | | | | [phone] | | | +--------+--------+ + + + [...]
--- OUTSIDE RECORDS SUMMARY | ~2020-06-23 | XMS | Encounter Summary ---
Demographics + + + | Address | [address] | | | [place] [address] | + + + | Home Phone [...] Team Providers + +------+ + | Care Spooler Name | Role | Phone | + [...] ogy | | Ava Torres, | [address] | | | | | Constipation | [address] | [place] | | | | | , | [address] | [place] for | | | | | unspecified | [address] | Health and | | | | | constipation | [facility] [place] | Healing, | | | | | type | [address] | Building 2 | | | | | Procedures | | [place], [place] | | | | | CONSULT TO | | [address] | | | | | GI PROCEDURE | | Phone: | | | | | UNIT: | | [phone] | | | | | ANORECTAL | | Fax: | | | | | MANOMETRY | | [phone] | | | | | [place] ANAL | | | | | | [...] | ogy | | Vijigaldon, | Chh[address] | | | | | Gastroparesi | Allegra Nieto, | [place] | | | | | s | [place] [address] | Center for | | | | | | [address] | Health and | | | | | | [place], | Healing, | | | | | | [place] [address] | Building 2 | | | | | | Phone: | [place], [place] | | | | | | [phone] | [address] | | | | | | Fax: | Phone: | | | | | | [phone] | [phone] | | | | | | | Fax: | | | | | | | [phone] | +--------+--------+ + + + + Encounter Details +--------+---------+ + + + | Date | Type | Department | Care Team | Description | +--------+---------+ + + + | 08/10/ | Office | Digestive Health | Ava Carbajal | Constipation, | | 2015 | Visit | Center at [facility] [address] | MD Melissa | unspecified | | | | [facility] | | constipation type | | | | for Health and | | (Primary Dx) | | | | Healing, [address] | | | | | | [place], [place] | | | | | | [address] | | | | | | [phone] | | | +--------+---------+ + + + [...] in their attached note. Celia Lin MD Tile Edgerstove refinisher Division of Gastroenterology & Hepatology [facility] va Carbajal MD - 08/09/2016 8:40 PM PDT Gastroenterology Initial Clinic Note 08/09/2016 CHIEF COMPLAINT/IDENTIFICATION: "Gastroparesis"-Nausea emesis and abdominal pain -SECOND O GERMAINE Dr. Flores-[facility] PCP: HANDY Villalpando HISTORY OF PRESENT [...] Dr. Flores in [facility] at [facility]. Patient has hx of GERD which was [...] had CT abdomen w contrast done at [facility] on 10/23/15 showing large stool burden [...] GI MDS: Dr. Nyla Garcia GI Dr. [facility] LABS: -increased CRP 06/19/16: Lipase-normal (8) [...] form versus functional syndrome. 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
--- OUTSIDE RECORDS SUMMARY | ~2020-06-23 | XMS | Encounter Summary ---
Demographics + + + | Address | [address] | | | [place] [address] | + + + | Home Phone [...] + +------+ + | Care Manager Of Exhibitions And Collections Name | Role | Phone | + [...] | | | | | syndrome | [facility] | [facility] | | | | | type 1 of | Rd | Rd [place], | | | | | left lower | [facility] [place] | [place] | | | | | extremity | [address] | [address] | | | | | Muscle pain | Phone: | Phone: | | | | | Procedures | [phone] | [phone] | | | | | REQUEST TO | Fax: | Fax: | | | | | SURGERY | [phone] | [phone] | | | | | HOT BOX SPOTTER | | | +--------+---------+ + + + [...] | syndrome | [address] | | | | | type 1 of | Rd | Rd [place], | | | | | left lower | [place], [place] | [place] | | | | | extremity | [address] | [address] | | | | | Muscle pain | Phone: | Phone: | | | | | Procedures | [phone] | [phone] | | | | | REQUEST TO | Fax: | Fax: | | | | | SURGERY | [phone] | [phone] | | | | | HOT BOX SPOTTER | | | | | | | [...] | | | | | Procedures | [facility] [place] | [facility], | | | | | CONSULT TO | [address] | [place] | | | | | PAIN | | [address] | | | | | MANAGEMENT | | Phone: | | | | | | | [phone] | | | | | | | Fax: | | | | | | | [phone] | +--------+--------+ + + + + Encounter Details +--------+---------+ + + + | Date | Type | Department | Care Team | Description | +--------+---------+ + + + | 12/14/ | Office | [facility] | Alex Sanchez, | Complex regional | | 2018 | Visit | Pain Center at | ,PhD [address] | pain syndrome type 1 | | | | [facility] | [facility] [address] | of left lower | | | | [address] | [place], [place] | extremity (Primary | | | | [place] for [facility] | [address] | Dx); Muscle pain; | | | | and Healing, | [phone] | Pain of upper | | | | | | abdomen | | | | Floor [place], [place] | | | | | | [address] | | | | | | [phone] | | | +--------+---------+ + + + [...] the time to see us in the [facility]. It was great to [...] make sure this is scheduled with the Channeling Machine Operator. PRE-PROCEDURE INSTRUCTIONS 1. Please bring a certified driver examiner with you as we may give you medications that impair your ability to drive. This is necessary even if you do not receive sedation. You may take a taxi or Home Team Therapycar if you are accompanied by a responsible [...] or blood thinning medications (other than aspirin), [facility] doctor who is doing your procedure will communicate with the provider who is prescribing y our anticoagulant therapy. If you do not have clear instructions on what to do with your an ticoagulant by 2 weeks before your procedure, please contact [facility] to cl arify your instructions. The phone number for questions or concerns is [phone]. documented in this encounter Progress Notes Charline [...] M D,PhD - 12/14/2017 10:25 AM PST [facility] Return Visit Date: 12/14/2017 Chief Complaint Patient presents with Back pain Low back pain Abdominal pain Pain in right leg Pain in left leg History of Present Illness: Tracie Farah is a 27 year old female, whose last appoi ntment at the [facility] [place] was October 11, 2017, for a clinic [...] review treatment plan. * Follow up with [facility] as needed. [...] was treated by Christie Madrid MD in [place], [place] for three years before she abruptly ended her practice due to illness. This left her without a doctor to help her manage her chronic pain. In addition to her CRPS symptoms (diagnosed 2010), she has some sto mach issues that she has been working with Ilene Childs DNP, CAN PILER-C. She has a scar on her stomach [...] a lot of great improvements while in [place], [place]. 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 Goes to [employer] with a light load. Has been working at [employer], can' t work on crArrively. Has roommates. Allergies Allergen Reactions Morphine Anaphylaxis [...] by physician. Concentration is 150mg/mL. Compounded by [facility] ) LAMOTRIGINE 200 MG TABLET Take [...] by [facility] Dig[facility]ive [facility]- 2 gallon bowel prep POLYETHYLENE [...] and summary of old medical records (source: [employer]), as summarized in the body of the [...] to her by Christie Madrid MD in [place], [place]. As she has since left the [...] I jacqueline poon spoken with our medical laboratory technicians, Evelia Gonzalez MD who agrees that as [...] peripheral nerve stimulation. As she lives in [place], [place] with her family (3.5 hours away), [...] by Sonia Key. Alex Sanchez MD PhD Harbormaster Anesthesiology and Pain Management [facility] Post visit: I reviewed the UDS, [...] [facility] | [address] | [place] [address] | | | SERVICES, CORE | GUILLERMO [...]
--- OUTSIDE RECORDS SUMMARY | ~2020-06-23 | XMS | Encounter Summary ---
Demographics + + + | Address | [address] | | | [place] [address] | + + + | Home Phone [...] Providers + +------+ + | Care Showroom Consultant Name | Role | Phone | + +------+ + | Allegra Gandhi | PCP | | + +------+ + Encounter Details +--------+ + + + + | Date | Type | Department | Care Team | Description | +--------+ + + + + | 08/02/ | Results | [facility] | Janak Riojas, | | | 2011 | Only | Pain Center at | MD [address] [facility] | | | | | [facility] | [facility] [address] | | | | | [address] | [place], [place] | | | | | Center for Health | [address] | | | | | and Martina, | [phone] | | | | | | | | | | | Floor [place], [place] | | | | | | [address] | | | | | | [phone] | | | +--------+ + + + [...]
--- OUTSIDE RECORDS SUMMARY | ~2020-06-23 | XMS | Encounter Summary ---
Demographics + + + | Address | [address] | | | [place] [address] | + + + | Home Phone [...] Providers + +------+ + | Care Accounts Manager Name | Role | Phone | [...] | | | | | | [address] | | | | | | [place], [place] | | | | | | [address] | | | +--------+ + + + [...]
--- OUTSIDE RECORDS SUMMARY | ~2020-06-23 | XMS | Encounter Summary ---
Demographics + + + | Address | [address] | | | [place] [address] | + + + | Home Phone [...] Team Providers + +------+ + | Care Dice Dealer Name | Role | Phone | [...] Rd | | | | | | [place], [place] | | | | | | [address] | | | +--------+ + + + [...]
--- OUTSIDE RECORDS SUMMARY | ~2020-06-23 | XMS | Encounter Summary ---
Demographics + + + | Address | [address] | | | [place] [address] | + + + | Home Phone [...] Team Providers + +------+ + | Care Mutuel Machine Operator Name | Role | Phone [...] | Diagnoses | Beulah | Edu Pt Foxing Cutting Machine Operator | | | | Therapy | CRPS | Janak Martinez MD | [address] | | | | | (complex | [address] | | | | | regional | [address] | Mailcode: | | | | | pain | Mailstop | [facility] | | | | | syndrome), | [phone] | for Health | | | | | lower limb | [place], [place] | and Healing, | | | | | Gait | [address] | [address] | | | | | disturbance | Phone: | [place], [place] | | | | | Muscle pain | [phone] | [address] | | | | | Procedures | Fax: | Phone: | | | | | PHYSICAL | [phone] | [phone] | | | | | THERAPY | [...] | | | | [address] | [place] [address] | syndrome), lower | | | | [address] | [phone] | limb (Primary Dx) | | | | [facility] | | | | | | and Healing, | | | | | | Building 1, | | | | | | Floor [place], [place] | | | | | | [address] | | | | | | [phone] | | | +--------+---------+ + + + [...] might be different f rom the original. [id number] BRODY FARAH Date of : 1990 Start of care: 02/14/2012 Date of onset: 02/14/2012 Referring/Attending Practitioner: Janak Riojas MD . Primary/Referral Diagnosis/ICD-9: 355.71B CRPS (complex regional pain syndrome), lower limb Insurance: Payor: [facility] Plan: BCBS OUT OF STATE Product Type: PP O Service period from: 02/14/2012 to: 08/12/2012 Number visits used/authorized: 01/23 [facility] PHYSICAL THERAPY PROGRESS NOTE SUBJECTIVE: Age: 21 y.o. Sex: female Chief complaint: No chief complaint on file. Current: pt has been doing her neck exercises. She is not shaking as much. Her foot hurts t bruno. Now she is working at [employer] 2-3 hours per week, and spends a [...] [facility] Outpatient Rehabilitation Services Mailcode: Ch3h [address] [facility], [address] [place] [phone] documented in this encounter Plan of Treatment Not on filedocumented as of this encounter Procedures + +--------+ + + + | Procedure Name | Priori | Date/Time | Associated Diagnosis | Comments | | | ty | | | | + +--------+ + + + | [place] THERAPEUTIC | Routin | 05/11/2012 | CRPS [...]
--- OUTSIDE RECORDS SUMMARY | ~2020-06-23 | XMS | Encounter Summary ---
Demographics + + + | Address | [address] | | | [place] [address] | + + + | Home Phone [...] | | Complex | Alex Alba, | [facility] [address] | | | | | regional | ,PhD [address] | Pavilion | | | | | pain | [address] | [address] | | | | | syndrome | [address] | [address], | | | | | type 1 of | Rd | Basement | | | | | left lower | [place], [place] | [place], [place] | | | | | extremity | [address] | [address] | | | | | Muscle pain | Phone: | Phone: | | | | | Procedures | [phone] | [phone] | | | | | [place] BONE | Fax: | Fax: | | | | | &/OR JOINT | [phone] | [phone] | | | | | IMAGING | [...] + + | 12/27/ | Ancillary | [facility] Comprehensive | Alex Sanchez, | | | 2018 | Orders | Pain Center at | ,PhD [address] [facility] | | | | | [facility] | [address] | | | | | [address] | [place], [place] | | | | | [facility] | [address] | | | | | and Martina, | [phone] | | | | | [facility] | | | | | | Floor [place], [place] | | | | | | [address] | | | | | | [phone] | | | +--------+ + + + [...] Note | + + | Service Account, Cell>Point Res In Interface - 12/28/2017 11:43 AM [...]
--- OUTSIDE RECORDS SUMMARY | ~2020-06-23 | XMS | Encounter Summary ---
Demographics + + + | Address | [address] | | | [place] [address] | + + + | Home Phone [...] Providers + +------+ + | Care Marketing Content Coordinator Name | Role | Phone | [...] | | syndrome | [address] | [facility] | | | | | type 1 of | Rd | Rd [place], | | | | | left lower | [place], [place] | [place] | | | | | extremity | [address] | [address] | | | | | Procedures | Phone: | Phone: | | | | | REQUEST TO | [phone] | [phone] | | | | | SURGERY | Fax: | Fax: | | | | | THREADING MACHINE [employer] | [phone] | [phone] | +--------+---------+ + + + + Encounter Details +--------+---------+ + + + | Date | Type | Department | Care Team | Description | +--------+---------+ + + + | 09/28/ | Office | [facility] Comprehensive | Yun Frey, TOBACCO EDUCATOR | Complex regional | | 2018 | Visit | Pain Center at | [address] | pain syndrome type 1 | | | | [place] | [place], [place] | of left lower | | | | [address] | [address] | extremity (Primary | | | | [facility] | [phone] | Dx); Arthralgia of | | | | and Healing, | | left lower leg | | | | | | | | | | [place], [place] | | | | | | [address] | | | | | | [phone] | | | +--------+---------+ + + + [...] Dr. Sanchez on 10/02/2018. -Please contact the [employer] rep if you have any further question [...] PM PST September 28, 2018 Tracie Farah [id number] [facility] Comprehensive Pain Center Return [...] drawing which I reviewed. [facility] Questionnaire Follow-up Patient 10/10/2017 Please [...] PROCEDURE: DRG Spinal Cord Stimuation Trial with [employer] system LEVEL/LATERALITY: left L4, L5. Till date, [...] up to 7%. After seeing th guest service representative today and killian ing adjustments, [...] the vein (IV) every eight hour s. 0297-7967-56 COMPOUNDED MED RX CONTROLLED (SEE ADMIN INSTRUCT [...] by physician. Concentration is 150mg/mL. Compounded by [facility] ( [phone]) KETOROLAC IM Inject into the muscle (IM). [...] (IV) every twel ve hours as needed. [id number] ONDANSETRON 4 MG DISINTEGRATING TABLET Dissolve 1 tablet in mouth every twelve hours as nee ded. PANTOPRAZOLE 40 MG TABLET,DELAYED RELEASE Take 40 mg by mouth once daily. PEG 3350-ELECTROLYTES 236 GRAM-22.74 GRAM-6.74 GRAM-5.86 GRAM SOLUTION Take as directed by [facility] Digestive [facility]- 2 gallon bowel prep POLYETHYLENE GLYCOL 3350 [...] been given programming opti ons by the [email or web address]'s device guest service representative, Michele. At this time, there is no complication from the DRG trial. Recommendations/Plan: 1. Recommend to keep her appointment with Dr. Sanchez on 10/02/2018. 2. To contact the [email or web address]'s rep if she has any further question on programming. 09/28/2018: I, Dayana Ivan, am functioning as a medical assembly for Yun Frey NP. I have reviewed and verified the above scribed note of my visit with this patient as record ed by Ms. Dayana Ivan. Jeanine Frey (Mr.) MSN, ACNP- Nurse Practitioner Acute Pain Service [facility] [address] [place] [id number] documented in this enco unter Plan of [...]
--- OUTSIDE RECORDS SUMMARY | ~2020-06-23 | XMS | Encounter Summary ---
Demographics + + + | Address | [address] | | | [place] [address] [...] Team Providers + +------+ + | Care Paralegal Legal Secretary Name | Role | Phone [...] | Diagnoses | Beulah | Edu Pt Weaver D[employer]oom | | | | Therapy | CRPS | Janak Martinez MD | [address] | | | | | (complex | [address] | | | | | regional | [address] | Mailcode: | | | | | pain | Mailstop | [facility] | | | | | syndrome), | [phone] | for Health | | | | | lower limb | [place], [place] | and Healing, | | | | | Gait | [address] | [address] | | | | | disturbance | Phone: | [place], [place] | | | | | Muscle pain | [phone] | [address] | | | | | Procedures | Fax: | Phone: | | | | | PHYSICAL | [phone] | [phone] | | | | | THERAPY | [...] | | | | [address] | [place] [address] | syndrome), lower | | | | [address] | [phone] | limb (Primary Dx) | | | | [facility] | | | | | | and Healing, | | | | | | Building 1, | | | | | | Floor [place], [place] | | | | | | [address] | | | | | | [phone] | | | +--------+---------+ + + + [...] might be different f rom the original. [id number] BRODY FARAH Date of : 1990 Start of care: 02/14/2012 Date of onset: 02/14/2012 Referring/Attending Practitioner: Janak Riojas MD . Primary/Referral Diagnosis/ICD-9: 355.71B CRPS (complex regional pain syndrome), lower limb Insurance: Payor: [facility] [employer] Plan: BCBS OUT OF STATE Product Type: PP O Service period from: 02/14/2012 to: 08/12/2012 Number visits used/authorized: 04/25 [facility] PHYSICAL THERAPY PROGRESS NOTE [...] change in their status. Guillermo Sanon MSPT [facility] Outpatient Rehabilitation Services Mailcode: Ch3p [address] [facility], [address] [place] [phone] documented in this encounter Plan of Treatment Not on filedocumented as of this encounter Procedures + +--------+ + + + | Procedure Name | Priori | Date/Time | Associated Diagnosis | Comments | | | ty | | | | + +--------+ + + + | [place] THERAPEUTIC | Routin | 06/13/2012 | CRPS [...]
--- OUTSIDE RECORDS SUMMARY | ~2020-06-23 | XMS | Encounter Summary ---
Demographics + + + | Address | [address] | | | [place] [address] | + + + | Home Phone [...] Team Providers + +------+ + | Care Caster Investment Casting Name | Role | Phone | + +------+ + | Allegra Gandhi | PCP | | + +------+ + Encounter Details +--------+ + + + + | Date | Type | Department | Care Team | Description | +--------+ + + + + | 03/01/ | Results | [facility] | Janak Riojas, | | | 2011 | Only | Pain Center at | MD [address] [facility] | | | | | [facility] | [facility] [id number] | | | | | [address] | [place], [place] | | | | | [facility] | [address] | | | | | and Martina, | [phone] | | | | | | | | | | | Floor [place], [place] | | | | | | [address] | | | | | | [phone] | | | +--------+ + + + [...]
--- OUTSIDE RECORDS SUMMARY | ~2020-06-23 | XMS | Encounter Summary ---
Demographics + + + | Address | [address] | | | [place] [address] | + + + | Home Phone [...] Providers + +------+ + | Care Processing Manager Name | Role | Phone | [...]
--- OUTSIDE RECORDS SUMMARY | ~2020-06-23 | XMS | Encounter Summary ---
Demographics + + + | Address | [address] | | | [place] [address] | + + + | Home Phone [...] Team Providers + +------+ + | Care Linoleum Floor Installer Name | Role | Phone | [...] Closed | | Pain | Diagnoses | Chasiyt, | Daniel | | | | Management | Abdominal | MD Kenny | Alex [place], | | | | | pain, | [address] | ,PhD [address] | | | | | unspecified | [facility] | [address] | | | | | location | Rd | [facility] | | | | | Procedures | [place], [place] | Rd [place], | | | | | CONSULT TO | [address] | [place] | | | | | PAIN | | [address] | | | | | MANAGEMENT | | Phone: | | | | | | | [phone] | | | | | | | Fax: | | | | | | | [phone] | +--------+--------+ + + + + Encounter Details +--------+---------+ + + + | Date | Type | Department | Care Team | Description | +--------+---------+ + + + | 05/08/ | Office | [facility] Comprehensive | Alex Sanchez, | Complex regional | | 2018 | Visit | Pain Center at | ,PhD [address] | pain syndrome type 1 | | | | [place] | [facility] [address] | of left lower | | | | [address] | [place], [place] | extremity (Primary | | | | [facility] | [address] | Dx); Pain of upper | | | | and Healing, | [phone] | abdomen; Intractable | | | | | | cyclical vomiting | | | | Floor [place], [place] | | with nausea; | | | | [address] | | Disturbance in sleep | | | | [phone] | | behavior; Abdominal | | | [...] MD,P hD - 05/08/2018 10:30 AM PDT [facility] Comprehensive Pain Center Return Visit Date: 05/08/2018 Chief Complaint Patient presents with Ankle pain Left Foot pain Left History of Present Illness: Tracie Farah is a 27 year old female, whose last appoi ntment at the [facility] was April [...] time that 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 Goes to [employer] with a light load. Has been working at [employer], can' t work on [employer]. Has roommates. Allergies Allergen Reactions Morphine Anaphylaxis [...] by physician. Concentration is 150mg/mL. Compounded by [employer] ) KETOROLAC IM Inject into the muscle [...] and summary of old medical records (source: [employer]), as summarized in the body of the [...] by Sonia Key. Alex Sanchez MD PhD Drill Setup Operator Anesthesiology and Pain Management [facility] documented in this encounter Plan of [...]
--- OUTSIDE RECORDS SUMMARY | ~2020-06-23 | XMS | Encounter Summary ---
Demographics + + + | Address | [address] | | | [place] [address] | + + + | Home Phone [...] Providers + +------+ + | Care Residential Mortgage Underwriter Name | Role | Phone [...] | | | | | syndrome | [facility] | [facility] | | | | | type 1 of | Rd | Rd [place], | | | | | left lower | [facility] [place] | [place] | | | | | extremity | [address] | [address] | | | | | Procedures | Phone: | Phone: | | | | | REQUEST TO | [phone] | [phone] | | | | | SURGERY | Fax: | Fax: | | | | | HYDROSTATIC TUBING TESTER | [phone] | [phone] | +--------+---------+ + + + + Physical [...] | | | | regional | ,PhD [address]091 | [facility] | | | | | pain | [facility] | [address] | | | | | syndrome | [facility] | [place] | | | | | type 1 of | Rd | [place] | | | | | left lower | [place], [place] | [address] | | | | | extremity | [address] | Phone: | | | | | Procedures | Phone: | [phone] | | | | | PHYSICAL | [phone] | Fax: | | | | | THERAPY | Fax: | [phone] | | | | | REFERRAL | [phone] | | +--------+--------+ + + + + [...] | | | | | Procedures | [place], [place] | Rd [place], | | | | | CONSULT TO | [address] | [place] | | | | | PAIN | | [address] | | | | | MANAGEMENT | | Phone: | | | | | | | [phone] | | | | | | | Fax: | | | | | | | [phone] | +--------+--------+ + + + + Encounter Details +--------+---------+ + + + | Date | Type | Department | Care Team | Description | +--------+---------+ + + + | 06/12/ | Office | [facility] Comprehensive | Alex Sanchez, | Complex regional | | 2018 | Visit | Pain Center at | ,PhD [address] [facility] | pain syndrome type 1 | | | | [facility] | [facility] [address] | of left lower | | | | [address] | [place], [place] | extremity (Primary | | | | [facility] | [address] | Dx) | | | | and Healing, | [phone] | | | | | | | | | | | Floor [place], [place] | | | | | | [address] | | | | | | [phone] | | | +--------+---------+ + + + [...] in the future, please contact me via Yub to request an order to schedule. The procedure you discussed with your doctor is called: SCS DRG TRIAL LUMBAR [facility]. Please make sure this is scheduled with the [employer]. PRE-PROCEDURE INSTRUCTIONS 1. Please bring a horse and wagon driver with you as we may give you medications that impair your ability to drive. This is necessary even if you do not receive sedation. You may take a taxi or ri [employer] if you are accompanied by a responsible [...] phone number for questions or concerns is [phone]. documented in this encounter Progress Notes Holly [...] MD,P hD - 06/12/2018 10:00 AM PDT [facility] Pain Center Return Visit Date: 06/12/2018 Chief Complaint Patient presents with Pain in left leg History of Present Illness: Tracie Farah is a 28 year old female, whose last appoi ntment at the [facility] was May 08, 2018, [...] that this mildly agitated her neck pain. 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, Surgeon: Janak Riojas [...] History Social History Narrative Single. Goes to [employer] with a light load. Has been working at [employer], can' t work on [employer]. Has roommates. Allergies Allergen Reactions Morphine [...] by physician. Concentration is 150mg/mL. Compounded by [facility] ) KETOROLAC IM Inject into the [...] as directed by [facility] Digestive Health- 2 gallon bowel [...] and summary of old medical records (source: [employer]), as summarized in the body of the [...] to send me a mess age via Yub to request referrals to acupuncture and massage [...] by Sonia Key. Alex Sanchez MD PhD [facility]her Anesthesiology and Pain Management [facility] documented in t his encounter Plan [...]
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
--- OUTSIDE RECORDS SUMMARY | ~2020-06-23 | XMS | Encounter Summary ---
Demographics + + + | Address | [address] | | | [place] [address] | + + + | Home Phone [...] Team Providers + +------+ + | Care Archaeology Professor Name | Role | Phone | + +------+ + | Justo Vazquez MD | PCP | | + +------+ + Encounter Details +--------+ + + + + | Date | Type | Department | Care Team | Description | +--------+ + + + + | 01/12/ | Telephone | Digestive Health | Kenny Gaspar MD | | | 2016 | | [place] [address] [address] | | | | | | [address] [facility] | | | | | | for Health and | | | | | | [facility], Building [address] | | | | | | [place], [place] | | | | | | [address] | | | | | | [phone] | | | +--------+ + + + [...]
--- OUTSIDE RECORDS SUMMARY | ~2020-06-23 | XMS | Encounter Summary ---
Demographics + + + | Address | [address] | | | [place] [address] | + + + | Home Phone [...] Team Providers + +------+ + | Care Infant Nanny Name | Role | Phone | + +------+ + | Allegra Gandhi | PCP | | + +------+ + Encounter Details +--------+ + + + + | Date | Type | Department | Care Team | Description | +--------+ + + + + | 02/13/ | Hospital | Nuclear Medicine | | | | 2011 | Encounter | at [facility] [address] | | | | | | [address] | | | | | | [address], | | | | | | [place], | | | | | | [place] [address] | | | | | | [phone] | | | +--------+ + + + [...]
--- OUTSIDE RECORDS SUMMARY | ~2020-06-23 | XMS | Encounter Summary ---
Demographics + + + | Address | [address] | | | [place] [address] | + + + | Home Phone [...] Team Providers + +------+ + | Care Plug Making Operator Name | Role | Phone | [...] Pain Medicine | Diagnoses | Chasity | Tank Cleaning Supervisor Chh1 | | | | / Pain | Abdominal | MD Kenny | [address] | | | | Management | pain, | [address] | [facility] | | | | | unspecified | [facility] | for Health | | | | | location | Rd | and Healing, | | | | | Procedures | [place], [place] | Building | | | | | CONSULT TO | [address] | 1,15th Floor | | | | | PAIN | | [place], [place] | | | | | MANAGEMENT | | [address] | | | | | | | Phone: | | | | | | | [phone] | | | | | | | Fax: | | | | | | | [phone] | +--------+--------+ + + + + Encounter Details +--------+---------+ + + + | Date | Type | Department | Care Team | Description | +--------+---------+ + + + | 07/11/ | Office | [facility] Comprehensive | Ilene Bright, | Pain of upper | | 2017 | Visit | Pain Center at | WATER QUALITY MANAGER [address] | abdomen (Primary | | | | [place] | [place], [place] | Dx); Intractable | | | | [address] | [address] | cyclical vomiting | | | | [facility] | [phone] | with nausea; | | | | and Healing, | | Irritable bowel | | | | Building | | syndrome with | | | | Floor [place], [place] | | constipation; | | | | [address] | | Complex regional | | | | [phone] | | pain syndrome type 1 | [...] and determine next steps. Ilene Childs DNP, WATER QUALITY MANAGER-C Adult Pain Service /[facility] [address] [place] [address] documented in this encounter Progress Notes Ilene Bright FNP - 07/11/2017 1:35 PM PDTFormatting of this note might be different fr om the original. [facility] Return Visit Date: 07/11/2017 Chief Complaint Patient presents with Abdominal pain Back pain History of Present Illness: Tracie Farah is a 27 year old female, whose last appoi ntment at the [facility] was April 25, 2017, for [...] in the process [facility]. She has also [...] abdominal pain an d associated symptoms. [facility] QUESTIONNAIRE BRIEF PAIN 07/11/2017 Please rate [...] has interfered with your sleep : 5 SMOKE JUMPER SUPERVISOR Questionnaire Follow-up Patient 07/11/2017 Please describe the [...] History Social History Narrative Single. Goes to [employer] with a light load. Has been working at [employer], can' t work on [employer]. Has roommates. Allergies Allergen Reactions Morphine Anaphylaxis [...] by physician. Concentration is 150mg/mL. Compounded by [facility] ) LAMOTRIGINE 200 MG TABLET Take [...] as directed by [facility] Digestive Health- 2 gallon bowel prep [...] and summary of old medical records (source: [employer]), as summarized in the body of the [...] Shantel [place]inas, am functioning as a medical collections for TERESA Clark DNP-C I have reviewed and verified the above scribed note of my visit with this patient as record ed by Shantel Salinas. Ilene Childs DNP, TERESA-C Adult Pain Service /[facility] [address] [place] [address] Addendum: I paged Dr. Les Gaspar. He was out of the clinic, I spoke with the covering provider and sha dandre Tracie's request for food allergy testing. Since Tracie thinks her pain and vomiting may b e triggered by gluten, covering provided ordered appropriate workup, which I communicated to Tracie and the the lab in [place], [place]. She will followup with me and GI once these results are available. Ilene Childs DNP, WATER QUALITY MANAGER-C Adult Pain Service /[facility] [address] [place] [address] documented in this e ncounter Plan of [...]
--- OUTSIDE RECORDS SUMMARY | ~2020-06-23 | XMS | Encounter Summary ---
Demographics + + + | Address | [address] | | | [place] [address] | + + + | Home Phone [...] Providers + +------+ + | Care Animal Caretaker Name | Role | Phone | + [...] | | | | | [address]don[place], | | | | | | [place] [address] | | | +--------+ + + + [...]
--- OUTSIDE RECORDS SUMMARY | ~2020-06-23 | XMS | Encounter Summary ---
Demographics + + + | Address | [address] | | | [place] [address] | + + + | Home Phone [...] Team Providers + +------+ + | Care Buy Boat Operator Name | Role | Phone | [...] + + | 08/08/ | Emergency | [facility] Emergency | Mable Villarreal MD | | | 2015 | | Department [address] | [address] [facility] | | | | | [address] | [address] | | | | | [facility] | [place], [place] | | | | | [place], [place] | [address] | | | | | [address] | [phone] | | | | | [phone] | | | | | | | [...] about "Gastroparesis: Care Instructions", log into your [employer] account at [email or web address] You can enter M106 in the [place]" search box. Not on [employer]? Review the [employer] section of your After Visit Summary for directions on ho w to sign up. 7934-4786 [employer]. Care instructions adapted under license by [facility] [employer] & [employer] [place]. This care instruction is for use with your licensed healthcar e professional. If you have questions about a medical condition or this instruction, always ask your healthcare professional. [employer] disclaims any warranty or liabili ty for your use of this information. Content Version: 11.0.248443; Current as of: October 03, 2015 documented [...] | | | LABORATORY | | | SWAZI | | | SERVICES, | | | [...] + + | [facility] | [address] | [place] [address] | | | SERVICES, CORE | [address] [...] DEPT OF | [address] | [place], [place] | | | CARDIOLOGY | [address] | [address] | | + + + + + [...] | + + + + + | [facility] | [address] | [place] [address] | | | SERVICES, CORE | [address] [...] [facility] | [address] | [place] [address] | | | SERVICES, LILLIAN | [address] [...] [facility]EVIN [facility] | [address] | [place] [address] | | | SERVICES, CORE | [address] [...] + + + | [facility] | [address] | [place] [address] | | | [facility] | [address] [...] organisms may result in clinically misleading | [facility] | | information due to the low numbers and /or mixture of organisms | | | present. Recollection is suggested if clinically indicated. | | + + + + + + + + | Performing | Address | City/State/Zipcode | Phone Number | | Organization | | | | + + + + + | [facility] | [address] | [place] [address] | | | [place] | | | | + + + [...] [facility] | [address] | [place] [address] | | | SERVICES, CORE | [address] [...] | + + + + + | [facility] | [address] | [place] [address] | | | SERVICES, CORE | [address] | | | + + + + + LIPASE, PLASMA (08/08/2016 2:22 PM PDT) + +---------+ + + + | Component | Value | Ref Range | Performed | Pathologist | | | | | At | Signature | + +---------+ + + + | LIPASE | 116 (L) | 152 - 353 U/L | [facility] | | | (LAB) | | | [...] + + | [facility] | [address] [facility] | [place] [address] | | | SERVICES, CORE | [address] [...] | | | LABORATORY | | | SWAZI | | | SERVICES, | | | [...] + + | [facility] | [address] | [place] [address] | | | SERVICES, CORE | [address] | | | + + + + + ED INFORMATION EXCHANGE (08/08/2016 12:21 PM PDT) + + + + + + | Component | Value | Ref Range | Performed | Pathologist | | | | | At | Signature | + + + + + + | [facility] | [id number] | | COLLECTIVE | | | | [id number] | | MEDICAL | | | | [...] ------- ---- | | | 08/08/2016 12:21 [facility] and | | | [facility] [place] [id number]. abd pain | | | 08/04/2016 03:50 [facility] | | | [place] Emergency ABD PAIN,VOMITING 06/26/2016 22:44 | | | [facility] [place] | | | Emergency -Acquired absence of other specified parts of | | | | | | digestive | | | tract | | | | | | -Gastroparesis | | | | | | -Unspecified abdominal pain | | | | | | -Gastro-esophageal reflux disease without | | | esophagitis | | | | | | -Other buttermaker helper (current) drug therapy 06/22/2016 17:35 | | | [facility] | | | Emergency -abd pain, "I have gastroparesis", since , seen | | | | | | at St | | | [facility] yesterday. has been to the er | | | | | | several times | | | | | | -Abdominal Pain | | | | | | -Gastroparesis 06/19/2016 | | | 04:51 [facility] [place] | | | [place] Emergency -Gastroparesis | | | | | | -Unspecified abdominal pain | | | | | | -Other buttermaker helper | | | (current) drug therapy | | | | | | -Acquired absence of other specified parts of | | | | | | digestive tract | | | 06/18/2016 07:18 [facility] | | | [place] Emergency [...] Location ------ --------- 1 | | | [facility] 1 | | | [facility] 8 [facility] 10 | | | Total Note: [...] COLLECTIVE MEDICAL | [address] | [place], [place] | [phone] | | TECHNOLOGIES | [address] | [address] | | + + + + + [...]
--- OUTSIDE RECORDS SUMMARY | ~2020-06-23 | XMS | Encounter Summary ---
Demographics + + + | Address | [address] | | | [place] [address] | + + + | Home Phone [...] Team Providers + +------+ + | Care Rodeo Performer Name | Role | Phone | + [...]
--- OUTSIDE RECORDS SUMMARY | ~2020-06-23 | XMS | Encounter Summary ---
Demographics + + + | Address | [address] | | | [place] [address] | + + + | Home Phone [...] Providers + +------+ + | Care Pharmacy Grad Intern Name | Role | Phone | [...] | syndrome | [place] | [facility] | | | | | type 1 of | Rd | Rd [place], | | | | | left lower | [place], [place] | [place] | | | | | extremity | [address] | [address] | | | | | Procedures | Phone: | Phone: | | | | | REQUEST TO | [phone] | [phone] | | | | | SURGERY | Fax: | Fax: | | | | | SALES PROMOTER | [phone] | [phone] | +--------+---------+ + + + + Encounter Details +--------+ + + + + | Date | Type | Department | Care Team | Description | +--------+ + + + + | 12/ | Procedure | [facility] at [facility] | Alex Sanchez, | Foot pain; Knee | | 2018 | | [address] | ,PhD [address] | pain; Procedure | | | | [facility] | [facility] | | | | | and Healing, | [place], [place] | | | | | | [address] | | | | | Floor [place], [place] | [phone] | | | | | [address] | | | | | | [phone] | | | +--------+ + + + [...] Sonia Key - 09/25/2018 1:00 PM PST [facility] Patient Instructions - Post Interventional Procedure Date: 09/25/2018 Name: Tracie Farah Date of : 1990 Procedure Performed: SCS DRG TRIAL LUMBAR [facility] Procedure Provider: Alex Sanchez MD,PhD If you have any problems you believe are associated with your procedure tonight, Please call the Hospital Human Resources Department Supervisor, and ask for the Pain Management Consu [...] symptoms, dressing, SCS function, or chills. During TECHNICAL DESIGNER open ho urs, call the [facility] ([phone]), after hours call the burr mill operator at [facility] ([phone]) and ask for the Adult Pain Service concrete pipe making machine operator. Identify yourself as a Comprehensive [facility] [...] to the pat ient. Aleta Rebollar MD [facility] Bjrdrmaunvuytd signed by Sonia Key at 09/25/2018 3:07 PM PST documented in this encounter Progress Notes Alex Sanchez MD,PhD - 09/25/2018 1:00 PM PSTI was present for the entire procedure ( DRG SCS trial) and all bocanegra elements of this visit. I reviewed the documentation of the othe r [facility] providers and concur with Dr. Rebollar's findings. I edited his note. Alex Sanchez MD,PhD Telecommunication Systems Designer Anesthesiology and Pain Management [facility] onacZain bonner RN - 09/25/2018 1:00 PM [...] by physician. Concentration is 150mg/mL. Compounded by [employer] ( [phone]) KETOROLAC IM Inject into the muscle (IM). [...] Take as directed by [facility] Digestive [facility]- 2 gallon bowel prep POLYETHYLENE [...] PRE-SEDATION: Date: September 25, 2018 Tracie Farah [id number] 1990 ALLERGIES: Morphine Previous reaction to Sedation/Analgesia: [...] NOTES: Date: September 25, 2018 Tracie Donaldson [facility] [id number] 1990 ALLERGIES: Morphine Previous reaction to Sedation/Analgesia: [...] VS: See Sedation Flow Sheet. Tracie Donaldson [facility] [id number] 1990, presents to clinic for: Procedure: bilateral [...] OPERATIVE NOTE Date: September 25, 2018 Location: [facility] Procedure Room Tracie Donaldson [facility] [id number] :1990, presents to clinic for: PROCEDURE: DRG Spinal Cord Stimuation Trial with St. [employer] system LEVEL/LATERALITY: left L4, L5 PRE-OPERATIVE DIAGNOSIS: G90.522 Complex regional pain syndrome type 1 of left lower extremity POST-OPERATIVE DIAGNOSIS: G90.522 Complex regional pain syndrome type 1 of left lower extremity ATTENDING PHYSICIAN: Alex Sanchez MD,PhD WARDROBE SUPERVISOR: Fellow Aleta Rebollar ANESTHESIA: Sedation delivered by [...] sedation. Ms. Farah was escorted to the [facility] Procedure R oom, where she was [...] patient. Ms. Farah was transported to the [facility] [place] post-procedure recovery area where she made an uneventful recovery. Programming was performed in the PACU with aid of the device textiles sales representative and Ms. Susie faust was sent home with a few programs . This was a unilateral procedure. Alex Sanchez MD,PhD was present for the entire procedure. Images were saved, and sent to [employer]. Ms. Farah was transported to the [facility] [place] post-procedure recovery area. She had an uneventful recovery. Before the procedure, Ms. Farah's pain was 7/10. After the procedure Ms. Farah's pain was 7/10. I, Sonia Key, am functioning as a scribe for Aleta Rebollar MD. I have reviewed and verified the above scribed note of my visit with this patient as record ed by Sonia Key. Aleta Rebollar MD [facility] 15TH FLOOR [address] [facility] Mail Code: [address] [address] documented in t his encounter Plan of Treatment Not on filedocumented as of this encounter Procedures + +--------+ + + + | Procedure Name | Priori | Date/Time | Associated Diagnosis | Comments | | | ty | | | | + +--------+ + + + | FL MOD SEDATION | Routin | 09/25/2018 | Complex regional | | | >=5YRS SAME MD/QUAL | e | 7:31 PM | pain syndrome type 1 | | | PROV; INIT 15 MIN | | PST | of left lower | | | | | | extremity | | + +--------+ + + + | FL PERCUT IMPLNT | Routin | 09/25/2018 | [...]
--- OUTSIDE RECORDS SUMMARY | ~2020-06-23 | XMS | Encounter Summary ---
Demographics + + + | Address | [address] | | | [place] [address] | + + + | Home Phone [...] Providers + +------+ + | Care Director Geophysical Laboratory Name | Role | Phone | [...] | | Spasticity | Ave | [facility] [place] | | | | | Procedures | [facility] [place] | [address] | | | | | CONSULT TO | [address] | Phone: | | | | | PAIN | Phone: | [phone] | | | | | MANAGEMENT | [phone] | Fax: | | | | | | Fax: | [phone] | | | | | | [phone] | | +--------+---------+ + + + + [...] | | MD Celia | MD Brendan [address] | | | | | Fibromyalgia | [address] | [address] | | | | | Spasticity | Ave | [address] | | | | | Epigastric | [place], [place] | Rd [place], | | | | | pain | [address] | [place] | | | | | Procedures | Phone: | [phone] | | | | | REQUEST TO | [phone] | Phone: | | | | | SURGERY | Fax: | [phone] | | | | | COURT RECORDING MONITOR | [phone] | Fax: | | | | | ID INJECT | | [phone] | | | | | TRIGGER | [...] Pain Medicine | Diagnoses | Chasity, | Hot Air Furnace Installer Repairer Chh1 | | | | / Pain | Abdominal | MD Kenny | [address] | | | | Management | pain, | [address] | [address] Center | | | | | unspecified | [facility] | for Health | | | | | location | Rd | and Healing, | | | | | Procedures | [place], [place] | Building | | | | | CONSULT TO | [address] | 1,15th Floor | | | | | PAIN | | [place], [place] | | | | | MANAGEMENT | | [address] | | | | | | | Phone: | | | | | | | [phone] | | | | | | | Fax: | | | | | | | [phone] | +--------+--------+ + + + + Encounter Details +--------+---------+ + + + | Date | Type | Department | Care Team | Description | +--------+---------+ + + + | 10/11/ | Office | [facility] | Vern Robertson, | Epigastric pain | | 2017 | Visit | Pain Center at | CARRY OUT CLERK [address] | (Primary Dx); | | | | [facility] | [place], [place] | Spasticity | | | | [address] | [address] | | | | | [place] for Health | [phone] | | | | | and Healing, | | | | | | Building | | | | | | Floor [place], [place] | | | | | | [address] | | | | | | [phone] | | | +--------+---------+ + + + [...] true warrior! * Please sign up for myOrderHART. This is the best way to communicate with me. It will save you time in the long run. The procedure you discussed with your doctor is called: Trigger point injection of abdomina l scar. Please make sure this is scheduled with the [facility]. PRE-PROCEDURE INSTRUCTIONS 1. Please bring a telephone directory distributor driver with you as we may give you medications that impair your ability to drive. This is necessary even if you do not receive sedation. You may take a taxi or ri [employer] if you are accompanied by a responsible [...] or blood thinning medications (other than aspirin), [facility] doctor who is doing your procedure will communicate with the provider who is prescribing y our anticoagulant therapy. If you do not have clear instructions on what to do with your an ticoagulant by 2 weeks before your procedure, please contact [facility] to cl arify your instructions. The phone number for questions or concerns is [phone]. * Consider Lidoderm topical or compound prescription [...] muscle hyper tonicity. * Consider increasing your Seymour 3 fats. Seymour-3 fats are precursors to mediators of inflammation [...] oil if approved by your PCP or connection worker. * Eliminate High Fructose Mishicot Syrup and Sugar from your diet as [...] review treatment plan. * Follow up with [facility] as needed. It was [...] ntment at the [facility] [place] was 07/11/17 with TERESA Clark, for a [...] She reports multiple diagnostic tests conducted at [facility] in [place], [place] including barium swallow and Hydrogen breath [...] Torodol shots: only form of symptom relief. REUSE TECHNICIAN Brief Pain Inventory: (ten= worst possible [...] Trial spinal cord stimulator leads 08/02/2012 [facility], Surgeon: Janak Riojas MD Cholecystectomy [...] History Social History Narrative Single. Goes to [employer] with a light load. Has been working at [employer], can' t work on crTrueViewches. Has roommates. Allergies Allergen Reactions Morphine Anaphylaxis [...] by physician. Concentration is 150mg/mL. Compounded by [facility] ) LAMOTRIGINE 200 MG TABLET Take [...] as directed by [facility] Digestive [facility]- 2 gallon bowel prep POLYETHYLENE GLYCOL [...] reviewed. - Review old medical records (from [facility]). Pertinent findings include: abdominal surger [...] review treatment plan. * Follow up with [facility] as needed. IGuillermo am scribing for Vern Robertson NP on 10/11/2017 I have reviewed and verified the above scribed note of my visit with this patient as record ed by Guillermo Hope. Vern Robertson NP [facility] 15TH FLOOR [address] Mail Code: [address]p [place] [address] documented in this e ncounter Plan of Treatment Not on filedocumented as of this encounter Visit Diagnoses + + | Diagnosis | + + | Epigastric pain - Primary Abdominal pain, epigastric | + + | Spasticity Abnormal involuntary movements | + + documented in this encounter
--- OUTSIDE RECORDS SUMMARY | ~2020-06-23 | XMS | Encounter Summary ---
Demographics + + + | Address | [address] | | | [place] [address] | + + + | Home Phone [...] Providers + +------+ + | Care Foreign Collection Clerk Name | Role | Phone | [...] + | 03// | Telephone | [facility] | Alex Sanchez, | Medication (clarify | | 2018 | | Pain Center at | ,PhD [address] | sig on Ketamine) | | | | [facility] | [facility] | | | | | [address] | [place], [place] | | | | | [facility] | [address] | | | | | and Healing, | [phone] | | | | | Building | | | | | | Floor [place], [place] | | | | | | [address] | | | | | | [phone] | | | +--------+ + + + [...]
--- OUTSIDE RECORDS SUMMARY | ~2020-06-23 | XMS | Encounter Summary ---
Demographics + + + | Address | [address] | | | [place] [address] | + + + | Home Phone [...] [address] | | | | | [facility] | [facility], | | | | | [address] | [place] [address] | | | | | [place] for [facility] | [phone] | | | | | and Healing, | | | | | | | | | | | | [place], [place] | | | | | | [address] | | | | | | [phone] | | | +--------+ + + + [...]
--- OUTSIDE RECORDS SUMMARY | ~2020-06-23 | XMS | Encounter Summary ---
Demographics + + + | Address | [address] | | | [place] [address] | + + + | Home Phone [...] Providers + +------+ + | Care Lumber Handler Name | Role | Phone | [...] + + | 12/05/ | Surgery | [facility] | Alex Sanchez, | BILATERAL DORSAL | | 2019 | | Center for Health | ,PhD [address] [facility] | ROOT GANGLION SPINAL | | | | and Healing Surgery | [address] | CORD STIMULATOR | | | | Center Admitting | [place], [place] | IMPLANT LUMBAR; | | | | Desk Located on the | [address] | POSTERIOR | | | | 4th floor [address] | [phone] | | | | | [address], | | | | | | [place] [address] | | | +--------+---------+ + + + [...] s/p successful DRG trial lead system with [employer] on 09/25/2018. No changes in H&P, [...] OPERATIVE NOTE Date: December 05, 2018 Location: [facility] [place] | | | Tracie Farah [id number] :1990, presents to clinic | | | for: Dorsal root ganglion stimulator implant PROCEDURE: Dorsal | | | root ganglion stimulator implant PRE-OPERATIVE DIAGNOSIS: Complex | | | regional Pain syndrome type 1 of left lower extremity | | | POST-OPERATIVE DIAGNOSIS: Complex regional Pain syndrome type 1 of | | | left lower extremity ATTENDING PHYSICIAN: Alex Sanchez | | | DIORAMA MODEL MAKER: Arben Valerio MD ANESTHESIA: sedation by IVIS Cole | | | Carmen, supervised by poultry dresser Ilir Valdes. | | | FINDINGS: Appropriate [...] PARQ | | | discussion with Tracie aFrah, and she gave written consent | | | for procedure and sedation. Ms. Farah was escorted to the [facility] | | | [place], where she [...] to the | | | [facility] compliance representative dealer. A test stimulation was performed and once [...] recovery. Images were saved, and sent to [employer]. | | | Alex Sanchez (attending) was present for the entire procedure. | | | Arben Valerio MD I was present for the entire procedure | | | (spinal cord stimulator implantation with DRG leads at left L4 and | | | L5) and all bocanegra elements of this visit. I reviewed the | | | documentation of the other COOKING TEACHER providers and concur with | | | Iman's findings. I edited his note. Alex Sanchez, | | | ,PhD Digital Learning Platforms Manager Anesthesiology and Pain Management | | | [facility] | | + + + HCG URINE, [...] + | JOSE ANTONIO MIN | [address] [facility] | [place] [address] | | | OF CARE TESTS | [...]
--- OUTSIDE RECORDS SUMMARY | ~2020-06-23 | XMS | Encounter Summary ---
Demographics + + + | Address | [address] | | | [place] [address] | + + + | Home Phone [...] Team Providers + +------+ + | Care Robotic Toy Inventor Name | Role | Phone | + [...] Vomiting; | | 2016 | | Center [place] [address] | | Constipation; | | | | [address] | | Abdominal pain | | | | for Health and | | | | | | Healing, Building [address] | | | | | | [place], [place] | | | | | | [address] | | | | | | [phone] | | | +--------+ + + + [...]
--- OUTSIDE RECORDS SUMMARY | ~2020-06-23 | XMS | Encounter Summary ---
Demographics + + + | Address | [address] | | | [place] [address] | + + + | Home Phone [...] Team Providers + +------+ + | Care Vulnerability Researcher Name | Role | Phone | + +------+ + | Justo Vazquez MD | PCP | | + +------+ + Encounter Details +--------+ + + + + | Date | Type | Department | Care Team | Description | +--------+ + + + + | 10/19/ | Telephone | [facility] | Ilene Bright, | | | 2017 | | Pain Center at | LANGUAGE TUTOR [address] | | | | | [facility] | [place], [place] | | | | | [address] | [address] | | | | | [place] for [facility] | [phone] | | | | | and Healing, | | | | | | | | | | | | Floor [place], [place] | | | | | | [address] | | | | | | [phone] | | | +--------+ + + + [...]
--- OUTSIDE RECORDS SUMMARY | ~2020-06-23 | XMS | Encounter Summary ---
Demographics + + + | Address | [address] | | | [place] [address] | + + + | Home Phone [...] Providers + +------+ + | Care Regional Branch Manager Name | Role | Phone | + +------+ + | Justo Vazquez MD | PCP | | + +------+ + Encounter Details +--------+ + + + + | Date | Type | Department | Care Team | Description | +--------+ + + + + | 07/26/ | MyChart | [facility] | Ilene Bright, | Labs | | 2017 | Encounter | Pain Center at | NETWORK PROGRAM MANAGER [address] | | | | | [facility] | [place], [place] | | | | | [address] | [address] | | | | | [place] for [facility] | [phone] | | | | | and Healing, | | | | | | | | | | | | Floor [place], [place] | | | | | | [address] | | | | | | [phone] | | | +--------+ + + + [...]
--- OUTSIDE RECORDS SUMMARY | ~2020-06-23 | XMS | Encounter Summary ---
Demographics + + + | Address | [address] | | | [place] [address] | + + + | Home Phone [...] Providers + +------+ + | Care School Supervisor Name | Role | Phone | + +------+ + | Justo Vazquez MD | PCP | | + +------+ + Encounter Details +--------+ + + + + | Date | Type | Department | Care Team | Description | +--------+ + + + + | 12/07/ | Telephone | [facility] | Alex Sanchez, | | | 2019 | | Pain Center at | ,PhD [address] | | | | | [facility] | [address] | | | | | [address] | [place], [place] | | | | | [place] for [facility] | [address] | | | | | and Healing, | [phone] | | | | | | | | | | | Floor [place], [place] | | | | | | [address] | | | | | | [phone] | | | +--------+ + + + [...]
--- OUTSIDE RECORDS SUMMARY | ~2020-06-23 | XMS | Encounter Summary ---
[...] Team Providers + +------+ + | Care Umbrella Frame Maker Name | Role | Phone | [...] [place] | | | | | | [address] | | | | | | Giuliana [address]erson | | | | | | [facility] | | | | | | [place], [place] | | | | | | [address] | | | | | | [phone] | | | +--------+ + + + [...]
--- OUTSIDE RECORDS SUMMARY | ~2020-06-23 | XMS | Encounter Summary ---
Demographics + + + | Address | [address] | | | [place] [address] | + + + | Home Phone [...] Providers + +------+ + | Care Asphalt Dauber Name | Role | Phone | + [...] Closed | | Orthopedics | Diagnoses | [place], | [facility] | | | | | Adjustment | Ranjeet Odom MD | Chh1 [address] | | | | | disorder, | [address] | [address] | | | | | unspecified | Ave | Center for | | | | | type | [facility] [place] | Health and | | | | | Procedures | [address] | Healing, | | | | | CONSULT TO | Phone: | Building 1, | | | | | BEHAVIORAL | [phone] | 12th Floor | | | | | HEALTH/PSYCH | Fax: | [place], [place] | | | | | [place]RI[place] - | [phone] | [address] | | | | | ADULT | | Phone: | | | | | | | [phone] | | | | | | | Fax: | | | | | | | [phone] | +--------+--------+ + + + + Reason [...] | | syndrome | [address] | [place], [place] | | | | | type 1 of | Rd | [address] | | | | | left lower | [place], [place] | Phone: | | | | | extremity | [address] | [phone] | | | | | Procedures | Phone: | Fax: | | | | | CONSULT TO | [phone] | [phone] | | | | | ORTHOPEDICS | Fax: | | | | | | AND | [phone] | | | | | | REHABILITATI [...] | 2018 | Visit | [facility] at [place] | [address] | (Primary Dx); Left | | | | for Health and | [place], [place] | ankle pain, | | | | Healing [address] | [address] | unspecified | | | | [facility] for | [phone] | chronicity; | | | | Health and Healing, | | Adjustment disorder, | | | | Building | | unspecified type | | | | Floor [place], [place] | | | | | | [address] | | | | | | [phone] | | | +--------+---------+ + + + [...] spinal cord stimulator leads 08/02/2012 [facility], Surgeon: Janak Riojas MD Cholecystectomy [...] by physician. Concentration is 150mg/mL. Compounded by [employer] ([phone]) levonorgestrel (MIRENA) 20 mcg/24 hr Intrauterine IUD [...] soln Take as directed by [facility]- 2 gallon bowel prep polyethylene [...] pertinent [facility] and personally formulated the plan [...] become. f/u open ended Ranjeet Amanda M.D. Environmental Protection Forester Foot and Ankle Surgery Department of Orthopedics & Rehabilitation [facility] [phone] >60 mins face to face consultation was [...]
--- OUTSIDE RECORDS SUMMARY | ~2020-06-23 | XMS | Encounter Summary ---
Demographics + + + | Address | [address] | | | [place] [address] | + + + | Home Phone [...] Providers + +------+ + | Care Elementary Ell Teacher Name | Role | Phone | + +------+ + | Justo Vazquez MD | PCP | | + +------+ + Encounter Details +--------+ + + + + | Date | Type | Department | Care Team | Description | +--------+ + + + + | 10/03/ | Telephone | [facility] | Ilene Bright, | | | 2017 | | Pain Center at | ROD PLACER [address] | | | | | [facility] | [place], [place] | | | | | [address] | [address] | | | | | [place] for [facility] | [phone] | | | | | and Healing, | | | | | | | | | | | | Floor [place], [place] | | | | | | [address] | | | | | | [phone] | | | +--------+ + + + [...]
--- OUTSIDE RECORDS SUMMARY | ~2020-06-23 | XMS | Encounter Summary ---
Demographics + + + | Address | [address] | | | [place] [address] | + + + | Home Phone [...] Team Providers + +------+ + | Care Floor Coverings Salesperson Name | Role | Phone | [...] + + | 10/21/ | Hospital | [place] [address] [address] | [place], | | | 2015 - | Encounter | [facility] | MD Tala [address] | | | | | [address] [place] [address] | [facility] | | | 10/25/ | | [place], [place] | [place], [place] | | | 2014 | | [address] | [address] | | | | | [phone] | [phone] | | | | | | | | | | | | Clifton Childers | | | | | | MD Nhan [address] [facility] | | | | | | [facility] | | | | | | [place], [place] | | | | | | [address] | | | | | | [phone] | | | | | | | [...] child. Followed by Dr. Katy berrios at [facility] in [place], [place]. Has been on a stable regimen for [...] agreeable with our plans. Clifton Childers MD Art Psychotherapist Or Therapist Division of Hospital Medicine Teaching Attending I [...] child. Followed by Dr. Katy berrios at [facility] in [place], [place], has been on a stable regimen [...] and plan. Lolita Ma MD, MPH Pager #[phone] PGY-1, Anesthesiology [facility] Associated attestation - Clifton Childers MD [...] agreeable with our plans. Clifton Childers MD Art Psychotherapist Or Therapist Division of Hospital Medicine Teaching Attending I [...] child. Followed by Dr. Katy berrios at [facility] in [place], [place], has been on a stable regimen for [...] and plan. Lolita Ma MD, MPH Pager #[phone] PGY-1, Anesthesiology [facility] Associated attestation - Clifton Childers MD [...] history, primarily secondary to CPRS in the [facility] ng of complicated ankle fracture [...] agreeable with our plans. Clifton Childers MD Art Psychotherapist Or Therapist Division of Hospital Medicine Teaching Attending I [...] good coping mechanism Heme/Lymphatic: negative Endocrine: negative Director Systems: negative Past Medical History: History of chronic [...] for he r CRPS in the pastm [facility] pharmacy does not carry this so we are trying to arrange for her to take her home medication via pharmacy approval 5. APS will sign off but please call with questions/concerns Aba Domran MD, PGY 3 Outboard Motor Inspector [place]-2 APS Pager: [phone] BILLING INFORMATION Deferred to attending physician. Ms. [...] up at this point. Please contact APS (#[id number]) if further assistance is needed. Ulices Lopez MD BILLING INFORMATION [facility] DEPARTMENT: [phone] Place of Service:- Inpatient Date of Service: 10/23/2015 CSN: [id number] Suggested Modifier: GC - Resident Involved Suggested CPT: 63442 - Follow up visit (includes PNB) - [...] today recd call from Dr. Madrid from [facility]. She has known pt for many yea rs and suggested ketamine and propofol gtt. Updated her on APS recommendations. She will hav e her office fax her clinic records to us. Pt was seen with Dr. Childers. Milton Moreau MD PGY-3, Internal Medicine Pager [phone] Pro Edwards RN - 10/22/2015 10:06 AM PSTActing as scribe for the UR Committee Physician named below. The primary medical team for this patient and the [facility] UR Committee have agreed after furth er study that an inpatient admission was not medically necessary. This hospital stay is con verted to an outpatient stay through use of Medicare Condition Code 44. The patient was not ified of this change in writing. The providers involved in this decision were: For patient s primary medical team: Melissa Childers MD For [facility] UR Committee: Kerry HARRIS RN CM [...] | | | LABORATORY | | | LIBERIAN | | | SERVICES, | | | [...] | + + + + + | [facility] | [address] | [place] [address] | | | SERVICES, CORE | PARK [...] | | + +---------+ + + | [facility] DEPARTMENT OF | | | | [...] | + + + | STAT | ORSU | | | LABORATORY | | | LILLIAN CROSS | + + + + + + + + | Performing | Address | City/State/Zipcode | Phone Number | | Organization | | | | + + + + + | [facility] | [address] | [place] [address] | | | SERVICESLILLIAN | [address] [...] | | | LABORATORY | | | LIBERIAN | | | SERVICES, | | | [...] the MDRD equation recommended by the | [facility] | | National Kidney Disease Education [...] [facility] | [address] | [place] [address] | | | SERVICES, CORE | PARK [...] | + + + + + | [facility] | [address] | [place] [address] | | | SERVICES, CORE | GUILLERMO [...] [facility] | [address] | [place] [address] | | | SERVICES, CORE | PARK [...] | + + + + + | [facility] | [address] | [place] [address] | | | SERVICES, CORE | PARK [...] | + + + + + | [facility] | [address] [facility] | [place] [address] | | | SERVICES, CORE | GUILLERMO [...] | | | LABORATORY | | | LIBERIAN | | | SERVICES, | | | [...] KEVIN SHAH | [address] | [place] [address] | | | SERVICES, CORE | PARK [...] | | | | | 1 dose, [facility] 10/23/15 at 1245 | | PM PST | | | | + +-------+ +-------+---+---+ +---+---+ | | | +---+---+ + +-------+ +--------+---+---+ | ibuprofen (MOTRIN) tablet 600 | Given | 10/25/20 | 600 mg | | | | mg 600 mg, oral, EVERY 6 HOURS, | | 15 8:05 | | | | | First dose on [facility] 10/23/15 at | | AM [...] | | | | | NEEDED, Starting [facility] 10/23/15 at | | | [...]
--- OUTSIDE RECORDS SUMMARY | ~2020-06-23 | XMS | Encounter Summary ---
Demographics + + + | Address | [address] | | | [place] [address] | + + + | Home Phone [...] + +------+ + | Care Insurance Verification Clerk Name | Role | Phone | + +------+ + | Justo Vazquez MD | PCP | | + +------+ + Encounter Details +--------+ + + + + | Date | Type | Department | Care Team | Description | +--------+ + + + + | 01/11/ | Procedure | Diagnostic Imaging | | | | 2016 | Pass | Services at [facility] | | | | | | [address] | | | | | | [place] | | | | | | [facility] | | | | | | [place], [place] | | | | | | [address] | | | | | | [phone] | | | +--------+ + + + [...]
--- OUTSIDE RECORDS SUMMARY | ~2020-06-23 | XMS | Encounter Summary ---
Demographics + + + | Address | [address] | | | [place] [address] | + + + | Home Phone [...] Providers + +------+ + | Care Sanitation Worker Name | Role | Phone | + +------+ + | Justo Vazquez MD | PCP | | + +------+ + Encounter Details +--------+ + + + + | Date | Type | Department | Care Team | Description | +--------+ + + + + | 12/27/ | Ancillary | [facility] | Alex Sanchez, | | | 2018 | Orders | Pain Center at | ,PhD [address] | | | | | [facility] | [address] | | | | | [address] | [place], [place] | | | | | [place] for [facility] | [address] | | | | | and Healing, | [phone] | | | | | | | | | | | Floor [place], [place] | | | | | | [address] | | | | | | [phone] | | | +--------+ + + + [...]
--- OUTSIDE RECORDS SUMMARY | ~2020-06-23 | XMS | Encounter Summary ---
Demographics + + + | Address | [address] | | | [place] [address] | + + + | Home Phone [...] Team Providers + +------+ + | Care Lathe Winder Name | Role | Phone | [...] Oliveira | | 2011 | IP | [address] | | House - Approved | | | | [place], | | | | | | [place] [address] | | | +--------+ + + + [...]
--- OUTSIDE RECORDS SUMMARY | ~2020-06-23 | XMS | Encounter Summary ---
Demographics + + + | Address | [address] | | | [place] [address] | + + + | Home Phone [...] Providers + +------+ + | Care Coffee Attendant Name | Role | Phone | + +------+ + | Justo Vazquez MD | PCP | | + +------+ + Encounter Details +--------+ + + + + | Date | Type | Department | Care Team | Description | +--------+ + + + + | 05/05/ | Documentati | [facility] Comprehensive | Alex Sanchez, | | | 2018 | on | Pain Center at | ,PhD [address] | | | | | [facility] | [address] | | | | | [address] | [place], [place] | | | | | [place] for [facility] | [address] | | | | | and Healing, | [phone] | | | | | | | | | | | Floor [place], [place] | | | | | | [address] | | | | | | [phone] | | | +--------+ + + + [...]
--- OUTSIDE RECORDS SUMMARY | ~2020-06-23 | XMS | Encounter Summary ---
Demographics + + + | Address | [address] | | | [place] [address] | + + + | Home Phone [...] Team Providers + +------+ + | Care Utilization Review Nurse Name | Role | Phone | [...] | evaluation (No | | | | [facility] | [facility] [id number] | evidence of drug | | | | [address] | [place], [place] | abuse) | | | | [facility] | [address] | | | | | and Healing, | [phone] | | | | | [facility] | | | | | | Floor [place], [place] | | | | | | [address] | | | | | | [phone] | | | +--------+ + + + [...]
--- OUTSIDE RECORDS SUMMARY | ~2020-06-23 | XMS | Encounter Summary ---
Demographics + + + | Address | [address] | | | [place] [address] | + + + | Home Phone [...] Team Providers + +------+ + | Care Armor Reconnaissance Vehicle Driver Name | Role | Phone | [...] [address] | | | | | [facility] | [facility], | | | | | [address] | [place] [address] | | | | | [facility] | [phone] | | | | | and Healing, | | | | | | [facility] | | | | | | [place], [place] | | | | | | [address] | | | | | | [phone] | | | +--------+ + + + [...]
--- OUTSIDE RECORDS SUMMARY | ~2020-06-23 | XMS | Encounter Summary ---
Demographics + + + | Address | [address] | | | [place] [address] | + + + | Home Phone [...] + + | 10/09/ | Telephone | [facility] | Alex Sanchez, | | | 2018 | | Pain Center at | ,PhD [address] | | | | | [facility] | [address] | | | | | [address] | [place], [place] | | | | | [place] for [facility] | [address] | | | | | and Healing, | [phone] | | | | | | | | | | | Floor [place], [place] | | | | | | [address] | | | | | | [phone] | | | +--------+ + + + [...]
--- OUTSIDE RECORDS SUMMARY | ~2020-06-23 | XMS | Encounter Summary ---
Demographics + + + | Address | [address] | | | [place] [address] | + + + | Home Phone [...] Team Providers + +------+ + | Care Molasses And Caramel Operator Name | Role | Phone | + +------+ + | Justo Vazquez MD | PCP | | + +------+ + Encounter Details +--------+ + + + + | Date | Type | Department | Care Team | Description | +--------+ + + + + | 12/12/ | Telephone | [facility] | Alex Sanchez, | | | 2019 | | Pain Center at | ,PhD [address] | | | | | [facility] | [address] | | | | | [address] | [place], [place] | | | | | [place] for [facility] | [address] | | | | | and Healing, | [phone] | | | | | | | | | | | Floor [place], [place] | | | | | | [address] | | | | | | [phone] | | | +--------+ + + + [...]
--- OUTSIDE RECORDS SUMMARY | ~2020-06-23 | XMS | Encounter Summary ---
Demographics + + + | Address | [address] | | | [place] [address] | + + + | Home Phone [...] Providers + +------+ + | Care Steel Cutter Name | Role | Phone | + +------+ + | Justo Vazquez MD | PCP | | + +------+ + Encounter Details +--------+ + + + + | Date | Type | Department | Care Team | Description | +--------+ + + + + | 12/28/ | Telephone | [facility] | Ilene Bright, | | | 2019 | | Pain Center at | FROG FARMER [address] | | | | | [facility] | [place], [place] | | | | | [address] | [address] | | | | | [place] for [facility] | [phone] | | | | | and Healing, | | | | | | | | | | | | Floor [place], [place] | | | | | | [address] | | | | | | [phone] | | | +--------+ + + + [...]
--- OUTSIDE RECORDS SUMMARY | ~2020-06-23 | XMS | Encounter Summary ---
Demographics + + + | Address | [address] | | | [place] [address] | + + + | Home Phone [...] Team Providers + +------+ + | Care Phys Therapist Name | Role | Phone | [...] | | syndrome | [address] | [facility] | | | | | type 1 of | Rd | Rd [place], | | | | | left lower | [place], [place] | [place] | | | | | extremity | [address] | [address] | | | | | Procedures | Phone: | Phone: | | | | | REQUEST TO | [phone] | [phone] | | | | | SURGERY | Fax: | Fax: | | | | | DATA PROCESSING CONTROL CLERK | [phone] | [phone] | +--------+---------+ + + + + Encounter Details +--------+---------+ + + + | Date | Type | Department | Care Team | Description | +--------+---------+ + + + | 12/07/ | Office | [facility] Comprehensive | Eulogio | Complex regional | | 2019 | Visit | Pain Center at | MD Irene [address] | pain syndrome type 1 | | | | [facility] | [address] [place], | of left lower | | | | [address] | [place] [address] | extremity (Primary | | | | [facility] | [phone] | Dx); S/P insertion | | | | and Healing, | | of spinal cord | | | | Building , | | stimulator | | | | Floor [place], [place] | | | | | | [address] | | | | | | [phone] | | | +--------+---------+ + + + [...] Lujan MD - 12/07/2018 9:10 AM PST [email or web address] Return Visit Date: 12/07/2018 Chief Complaint Patient presents with Back pain Pain in left leg History of Present Illness: Tracie Farah is a 28 year old female, whose last appoi ntment at the [facility] was December 05, 2018, for a procedure [...] her 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 PET RESORT CONCIERGE Brief Pain Inventory: (ten= worst possible pain [...] Hemroidectomy Trial spinal cord stimulator leads 08/02/2012 [facility], Surgeon: Janak Riojas MD Cholecystectomy [...] History Social History Narrative Single. Goes to [employer] with a light load. Has been working at [employer], can' t work on [employer]. Has roommates. Allergies Allergen Reactions Morphine Anaphylaxis [...] and summary of old medical records (source: [facility]), as summarized in the body of the [...] present for the encounter. Irene Krishnan MD [facility] COMPREHENSIVE PAIN CENTER AT [place] [id number] [facility], 4th Floor Mail Code: [address] [phone] documented in thi s encounter Plan of Treatment Not on filedocumented as of this encounter Visit Diagnoses + + | Diagnosis | + + | Complex regional pain syndrome type 1 of left lower extremity - Primary | + + | S/P insertion of spinal cord stimulator | + + documented in this encounter
--- OUTSIDE RECORDS SUMMARY | ~2020-06-23 | XMS | Encounter Summary ---
Demographics + + + | Address | [address] | | | [place] [address] | + + + | Home Phone [...] Providers + +------+ + | Care Technical Project Lead Name | Role | Phone [...] | 2011 | Records | [address] [facility] | [phone] | | | | | [address] | | | | | | [place], [place] | | | | | | [address] | | | +--------+ + + + [...]
--- OUTSIDE RECORDS SUMMARY | ~2020-06-23 | XMS | Encounter Summary ---
Demographics + + + | Address | [address] | | | [place] [address] | + + + | Home Phone [...] Providers + +------+ + | Care Stone Dresser Name | Role | Phone | [...] | | 2017 | | Center at [facility] [address] | | Review | | | | [facility] | | | | | | for Health and | | | | | | [facility], [facility] 2 | | | | | | [place], [place] | | | | | | [address] | | | | | | [phone] | | | +--------+ + + + [...]
--- OUTSIDE RECORDS SUMMARY | ~2020-06-23 | XMS | Encounter Summary ---
Demographics + + + | Address | [address] | | | [place] [address] | + + + | Home Phone [...] | Diagnoses | Beulah | Edu Pt Casting Inspector | | | | Therapy | CRPS | Janak Martinez MD | [address] | | | | | (complex | [address] | | | | | regional | [address] | Mailcode: | | | | | pain | Mailstop | [facility] | | | | | syndrome), | [id number] | for Health | | | | | lower limb | [place], [place] | and Healing, | | | | | Gait | [address] | [address] | | | | | disturbance | Phone: | [place], [place] | | | | | Muscle pain | [phone] | [address] | | | | | Procedures | Fax: | Phone: | | | | | PHYSICAL | [phone] | [phone] | | | | | THERAPY | [...] | | | | [address] [place] | [place] [address] | syndrome), lower | | | | [address] | [phone] | limb (Primary Dx) | | | | [facility] | | | | | | and Healing, | | | | | | Building 1, | | | | | | Floor [place], [place] | | | | | | [address] | | | | | | [phone] | | | +--------+---------+ + + + [...] might be different f rom the original. [id number] BRODY FARAH Date of : 1990 Start of care: 02/14/2012 Date of onset: 02/14/2012 Referring/Attending Practitioner: Janak Riojas MD . Primary/Referral Diagnosis/ICD-9: 355.71B CRPS (complex regional pain syndrome), lower limb Insurance: Payor: [facility] Storie Plan: BCBS OUT OF STATE Product Type: PP O Service period from: 02/14/2012 to: 08/12/2012 Number visits used/authorized: 04/25 [facility] PHYSICAL THERAPY PROGRESS NOTE [...] change in their status. Guillermo Sanon MSPT [facility] Outpatient Rehabilitation Services Mailcode: Ch3p 0922 [facility], [address] [place] [address] documented in this encounter Plan of Treatment Not on filedocumented as of this encounter Procedures + +--------+ + + + | Procedure Name | Priori | Date/Time | Associated Diagnosis | Comments | | | ty | | | | + +--------+ + + + | MO THERAPEUTIC | Routin | 06/13/2012 | CRPS [...]
--- OUTSIDE RECORDS SUMMARY | ~2020-06-23 | XMS | Encounter Summary ---
Demographics + + + | Address | [address] | | | [place] [address] | + + + | Home Phone [...] Providers + +------+ + | Care Truck Despatcher Name | Role | Phone | + [...] Diagnoses | Beulah | Edu Pt Stripper Latex | | | | Therapy | CRPS | Janak Martinez MD | [address] | | | | | (complex | [address] | | | | | regional | [address] | Mailcode: | | | | | pain | Mailstop | [facility] | | | | | syndrome), | [id number] | for Health | | | | | lower limb | [place], [place] | and Healing, | | | | | Gait | [address] | [address] | | | | | disturbance | Phone: | [place], [place] | | | | | Muscle pain | [phone] | [address] | | | | | Procedures | Fax: | Phone: | | | | | PHYSICAL | [phone] | [phone] | | | | | THERAPY | [...] regional pain | | | | [facility] | [place] [address] | syndrome), lower | | | | [address] | [phone] | limb (Primary Dx) | | | | [facility] | | | | | | and Healing, | Specialist, Edu | | | | | Building 1, 1st | Exercise [address] | | | | | Floor [place], [place] | [address] [place], | | | | | [address] | [place] [address] | | | | | [phone] | | | +--------+---------+ + + + [...] might be different f rom the original. [id number] BRODY FARAH Date of : 1990 Start of care: 02/14/2012 Date of onset: 02/14/2012 Referring/Attending Practitioner: Janak Riojas MD . Primary/Referral Diagnosis/ICD-9: 355.71B CRPS (complex regional pain syndrome), lower limb Insurance: Payor: [facility] Plan: BCBS OUT OF STATE Product Type: PP O Service period from: 02/14/2012 to: 08/12/2012 Number visits used/authorized: 02/23 [facility] PHYSICAL THERAPY PROGRESS NOTE SUBJECTIVE: Age: [...] change in their status. Guillermo Sanon MSPT [facility] Outpatient Rehabilitation Services Mailcode: Ch3p 3307 [facility], [address] [place] [phone] documented in this encounter Plan of Treatment Not on filedocumented as of this encounter Procedures + +--------+ + + + | Procedure Name | Priori | Date/Time | Associated Diagnosis | Comments | | | ty | | | | + +--------+ + + + | MI THERAPEUTIC | Routin | 05/24/2012 | CRPS (complex | | | EXERCISES | e | 6:23 PM | regional pain | | | | | PDT | syndrome), lower | | | | | | limb | | + +--------+ + + + | MI THERAPEUTIC | Routin | 05/24/2012 | CRPS [...]
--- OUTSIDE RECORDS SUMMARY | ~2020-06-23 | XMS | Encounter Summary ---
Demographics + + + | Address | [address] | | | [place] [address] | + + + | Home Phone [...] Team Providers + +------+ + | Care Explosive Operator Name | Role | Phone | + +------+ + | Justo Vazquez MD | PCP | | + +------+ + Encounter Details +--------+ + + + + | Date | Type | Department | Care Team | Description | +--------+ + + + + | 04/23/ | Anesthesia | Pain Center at [facility] | Aleta Rebollar MD [address] | | | 2019 | Event | [address] | [address] | | | | | [place] for Health | [place], [place] | | | | | and Healing, | [address] | | | | | | [phone] | | | | | Floor [place], [place] | | | | | | [address] | | | | | | [phone] | | | +--------+ + + + [...]
--- OUTSIDE RECORDS SUMMARY | ~2020-06-23 | XMS | Encounter Summary ---
Demographics + + + | Address | [address] | | | [place] [address] | + + + | Home Phone [...] + +------+ + | Care Electro Mechanical Technologist Name | Role | Phone | [...] Rd | | | | | | [place], [place] | | | | | | [address] | | | +--------+ + + + [...]
--- OUTSIDE RECORDS SUMMARY | ~2020-06-23 | XMS | Encounter Summary ---
Demographics + + + | Address | [address] | | | [place] [address] | + + + | Home Phone [...] Team Providers + +------+ + | Care Prison Teacher Name | Role | Phone | [...] + + | 10/07/ | Telephone | [facility] Comprehensive | Yosef Kenney MD | Wound infection | | 2018 | | Pain Center at | [address] | (Concern for DRG | | | | [facility] | [address] [place], | trial wound | | | | [address] | [place] [address] | infection) | | | | [place] for Health | [phone] | | | | | and Healing, | | | | | | | | | | | | [place], [place] | | | | | | [address] | | | | | | [phone] | | | +--------+ + + + [...]
--- OUTSIDE RECORDS SUMMARY | ~2020-06-23 | XMS | Encounter Summary ---
Demographics + + + | Address | [address] | | | [place] [address] | + + + | Home Phone [...] + +------+ + | Care Health Care Specialist Name | Role | Phone [...] Center at [facility] [address] | | Review | | | | [facility] | | | | | | for Health and | | | | | | [facility], [facility] 2 | | | | | | [place], [place] | | | | | | [address] | | | | | | [phone] | | | +--------+ + + + [...]
--- OUTSIDE RECORDS SUMMARY | ~2020-06-23 | XMS | Encounter Summary ---
Demographics + + + | Address | [address] | | | [place] [address] | + + + | Home Phone [...] Team Providers + +------+ + | Care Shop Coordinator Name | Role | Phone | [...] + + | 06/07/ | Telephone | [facility] Ilene | Ilene Bright, | Care Coordination | | 2016 | | Pain Center at | CONSULTING PSYCHIATRIST [address] | | | | | [facility] | [place], [place] | | | | | [address] | [address] | | | | | [facility] | [phone] | | | | | and Healing, | | | | | | Building , | | | | | | Floor [place], [place] | | | | | | [address] | | | | | | [phone] | | | +--------+ + + + [...]
--- OUTSIDE RECORDS SUMMARY | ~2020-06-23 | XMS | Encounter Summary ---
Demographics + + + | Address | [address] | | | [place] [address] | + + + | Home Phone [...] Providers + +------+ + | Care Drop Board Man Name | Role | Phone | [...] + + | 10/06/ | Telephone | [facility] Comprehensive | Yosef Kenney MD | Dermatitis | | 2018 | | Pain Center at | [address] | | | | | [facility] | [facility] | | | | | [address] | [place] [address] | | | | | [facility] | [phone] | | | | | and Healing, | | | | | | [facility] | | | | | | [place], [place] | | | | | | [address] | | | | | | [phone] | | | +--------+ + + + [...]
--- OUTSIDE RECORDS SUMMARY | ~2020-06-23 | XMS | Encounter Summary ---
Demographics + + + | Address | [address] | | | [place] [address] | + + + | Home Phone [...] Providers + +------+ + | Care Telephone Supervisor Name | Role | Phone | + +------+ + | Justo Vazquez MD | PCP | | + +------+ + Encounter Details +--------+ + + + + | Date | Type | Department | Care Team | Description | +--------+ + + + + | 12/28/ | Senior Specialist | [facility] Comprehensive | Alex Sanchez, | Arthralgia of lower | | 2018 | | Pain Center at | ,PhD [address] | leg, unspecified | | | | [facility] | [address] | laterality (Primary | | | | [address] | [place], [place] | Dx) | | | | Center for Health | [address] | | | | | and Healing, | [phone] | | | | | | | | | | | Floor [place], [place] | | | | | | [address] | | | | | | [phone] | | | +--------+ + + + [...]
--- OUTSIDE RECORDS SUMMARY | ~2020-06-23 | XMS | Encounter Summary ---
Demographics + + + | Address | [address] | | | [place] [address] | + + + | Home Phone [...] Providers + +------+ + | Care Crown Assembly Machine Operator Name | Role | [...] Rd | | | | | | [place], [place] | | | | | | [address] | | | +--------+ + + + [...]
--- OUTSIDE RECORDS SUMMARY | ~2020-06-23 | XMS | Encounter Summary ---
Demographics + + + | Address | [address] | | | [place] [address] | + + + | Home Phone [...] Providers + +------+ + | Care Core Piler Name | Role | Phone | + +------+ + | Justo Vazquez MD | PCP | | + +------+ + Encounter Details +--------+ + + + + | Date | Type | Department | Care Team | Description | +--------+ + + + + | 05/05/ | Documentati | [facility] Comprehensive | Alex Sanchez, | | | 2018 | on | Pain Center at | ,PhD [address] | | | | | [facility] | [address] | | | | | [address] | [place], [place] | | | | | [place] for [facility] | [address] | | | | | and Healing, | [phone] | | | | | | | | | | | Floor [place], [place] | | | | | | [address] | | | | | | [phone] | | | +--------+ + + + [...]
--- OUTSIDE RECORDS SUMMARY | ~2020-06-23 | XMS | Encounter Summary ---
Demographics + + + | Address | [address] | | | [place] [address] | + + + | Home Phone [...] Providers + +------+ + | Care Heel Seat Filler Name | Role | Phone | [...] | | | Spasticity | Ave | [facility] [place] | | | | | Procedures | [facility] [place] | [address] | | | | | CONSULT TO | [address] | Phone: | | | | | PAIN | Phone: | [phone] | | | | | MANAGEMENT | [phone] | Fax: | | | | | | Fax: | [phone] | | | | | | [phone] | | +--------+---------+ + + + + [...] | | MD Celia | MD Brendan [address] | | | | | Fibromyalgia | [address] | [address] | | | | | Spasticity | Ave | [address] | | | | | Epigastric | [place], [place] | Rd [place], | | | | | pain | [address] | [place] | | | | | Procedures | Phone: | [phone] | | | | | REQUEST TO | [phone] | Phone: | | | | | SURGERY | Fax: | [phone] | | | | | CHILD CARE SUPERVISOR | [phone] | Fax: | | | | | CO INJECT | | [phone] | | | | | TRIGGER | | | | | | | POINT, 1 [place] | | | | | | | 2 CO INJECT | | | | | | [...] Pain Medicine | Diagnoses | Chasity, | Glass Laminating Operator Chh1 | | | | / Pain | Abdominal | MD Kenny | [address] | | | | Management | pain, | [address] | Ave Center | | | | | unspecified | [facility] | for Health | | | | | location | Rd | and Healing, | | | | | Procedures | [place], [place] | Building | | | | | CONSULT TO | [address] | 1,15th Floor | | | | | PAIN | | [place], [place] | | | | | MANAGEMENT | | [address] | | | | | | | Phone: | | | | | | | [phone] | | | | | | | Fax: | | | | | | | [phone] | +--------+--------+ + + + + Encounter Details +--------+---------+ + + + | Date | Type | Department | Care Team | Description | +--------+---------+ + + + | 10/11/ | Office | [facility] Comprehensive | Vern Robertson, | Epigastric pain | | 2017 | Visit | Pain Center at | DIRECTOR GOVERNMENT [address] | (Primary Dx); | | | | [facility] | [place], [place] | Spasticity | | | | [address] | [address] | | | | | [place] for [facility] | [phone] | | | | | and Healing, | | | | | | Building | | | | | | Floor [place], [place] | | | | | | [address] | | | | | | [phone] | | | +--------+---------+ + + + [...] true warrior! * Please sign up for [id number]. This is the best way to communicate with me. It will save you time in the long run. The procedure you discussed with your doctor is called: Trigger point injection of abdomina l scar. Please make sure this is scheduled with the Chartered Wealth Manager. PRE-PROCEDURE INSTRUCTIONS 1. Please bring a dumpcart driver with you as we may give you medications that impair your ability to drive. This is necessary even if you do not receive sedation. You may take a taxi or ri Jimmy Fairlycar if you are accompanied by a responsible [...] thinning medications (other than aspirin), [facility] doctor who is doing your procedure will communicate with the provider who is prescribing y our anticoagulant therapy. If you do not have clear instructions on what to do with your an ticoagulant by 2 weeks before your procedure, please contact [facility] to cl arify your instructions. The phone number for questions or concerns is [phone]. * Consider Lidoderm topical or compound prescription [...] muscle hyper tonicity. * Consider increasing your [place] 3 fats. [place]-3 fats are precursors to mediators of inflammation [...] oil if approved by your PCP or unloading checker. * Eliminate High Fructose Bradley Syrup and Sugar from your diet as [...] treatment plan. * Follow up with [facility] as needed. It was [...] NP - 1 12/11/2016 1:15 PM PST [facility] Return Visit Date: 10/11/2017 Chief Complaint Patient presents with Abdominal pain Back pain Foot pain History of Present Illness: Tracie Farah is a 27 year old female, whose last appoi ntment at the [facility] [place] was 07/11/17 with TERESA Clark, for a [...] She reports multiple diagnostic tests conducted at [facility] in [place], [place] including barium swallow and Hydrogen breath [...] Torodol shots: only form of symptom relief. SEWING INSPECTOR Brief Pain Inventory: (ten= worst possible [...] History Social History Narrative Single. Goes to [employer] with a light load. Has been working at [employer], can' t work on crMagiqches. Has roommates. Allergies Allergen Reactions Morphine Anaphylaxis [...] by physician. Concentration is 150mg/mL. Compounded by [facility] ) LAMOTRIGINE 200 MG TABLET Take [...] by [facility] Dig[facility]ive [facility]- 2 gallon bowel prep POLYETHYLENE GLYCOL [...] reviewed. - Review old medical records (from [facility]). Pertinent findings include: abdominal surger [...] treatment plan. * Follow up with [facility] as needed. IGuillermo am scribing for Vern Robertson NP on 10/11/2017 I have reviewed and verified the above scribed note of my visit with this patient as record ed by Guillermo Hope. Vern Robertson NP [facility] 15TH FLOOR [address] Mail Code: [id number] [place] [address] documented in this e ncounter Plan of Treatment Not on filedocumented as of this encounter Visit Diagnoses + + | Diagnosis | + + | Epigastric pain - Primary Abdominal pain, epigastric | + + | Spasticity Abnormal involuntary movements | + + documented in this encounter
--- OUTSIDE RECORDS SUMMARY | ~2020-06-23 | XMS | Encounter Summary ---
Demographics + + + | Address | [address] | | | [place] [address] | + + + | Home Phone [...] Providers + +------+ + | Care Executive Chairman Of The Board Name | Role | Phone | + [...] | | | | | [address] | | | | | | [address] | | | | | | [place], | | | | | | [address] [place] [address], | | | | | | [place] [address] | | | | | | [phone] | | | +--------+ + + + [...]
--- OUTSIDE RECORDS SUMMARY | ~2020-06-23 | XMS | Encounter Summary ---
Demographics + + + | Address | [address] | | | [place] [address] | + + + | Home Phone [...] Providers + +------+ + | Care Engineering Programmer Name | Role | Phone | + +------+ + | Justo Vazquez MD | PCP | | + +------+ + Encounter Details +--------+ + + + + | Date | Type | Department | Care Team | Description | +--------+ + + + + | 12/07/ | Telephone | [facility] | Alex Sanchez, | | | 2019 | | Pain Center at | ,PhD [address] | | | | | [facility] | [address] | | | | | [address] | [place], [place] | | | | | [place] for [facility] | [address] | | | | | and Healing, | [phone] | | | | | | | | | | | Floor [place], [place] | | | | | | [address] | | | | | | [phone] | | | +--------+ + + + [...]
--- OUTSIDE RECORDS SUMMARY | ~2020-06-23 | XMS | Encounter Summary ---
Demographics + + + | Address | [address] | | | [place] [address] | + + + | Home Phone [...] + +------+ + | Care Director Of Math Name | Role | Phone | + +------+ + | Justo Vazquez MD | PCP | | + +------+ + Encounter Details +--------+ + + + + | Date | Type | Department | Care Team | Description | +--------+ + + + + | 03/23/ | MyChart | [facility] | Ilnee Bright, | Welcome | | 2017 | Encounter | Pain Center at | ASP WEB DEVELOPER [address] | | | | | [facility] | [place], [place] | | | | | [address] | [address] | | | | | [place] for [facility] | [phone] | | | | | and Healing, | | | | | | | | | | | | Floor [place], [place] | | | | | | [address] | | | | | | [phone] | | | +--------+ + + + [...]
--- OUTSIDE RECORDS SUMMARY | ~2020-06-23 | XMS | Encounter Summary ---
Demographics + + + | Address | [address] | | | [place] [address] | + + + | Home Phone [...] Team Providers + +------+ + | Care Viscose Cellar Worker Name | Role | Phone | + +------+ + | Justo Vazquez MD | PCP | | + +------+ + Encounter Details +--------+ + + + + | Date | Type | Department | Care Team | Description | +--------+ + + + + | 04/23/ | Pharmacy | [facility] | | | | 2019 | Visit | & [facility] | | | | | | [address] | | | | | | Mailcode: Union | | | | | | [facility] | | | | | | Healing, Building [address] | | | | | | [place], [place] | | | | | | [address] | | | | | | [phone] | | | +--------+ + + + [...]
--- OUTSIDE RECORDS SUMMARY | ~2020-06-23 | XMS | Encounter Summary ---
Demographics + + + | Address | [address] | | | [place] [address] | + + + | Home Phone [...] Providers + +------+ + | Care Aircraft Engine Dismantler Name | Role | Phone | + +------+ + | Allegra Chaudhary | PCP | | + +------+ + Encounter Details +--------+ + + + + | Date | Type | Department | Care Team | Description | +--------+ + + + + | 10/21/ | Telephone | [facility] | Antony Beltre, | | | 2014 | | [place] [address] [address] | [address] | | | | | [address] | [place] [address] | | | | | for Health and | [phone] | | | | | [facility] 2 | | | | | | [place], [place] | | | | | | [address] | | | | | | [phone] | | | +--------+ + + + [...]
--- OUTSIDE RECORDS SUMMARY | ~2020-06-23 | XMS | Encounter Summary ---
Demographics + + + | Address | [address] | | | [place] [address] | + + + | Home Phone [...] Team Providers + +------+ + | Care Fpga Engineer Name | Role | Phone | [...] | | [address] [facility] for | [place], [place] | | | | | Health and Healing, | [address] | | | | | | [phone] | | | | | [place], [place] | | | | | | [address] | | | | | | [phone] | | | +--------+ + + + [...] Note | + + | Service Account, Kamego Res In Interface - 03/08/2018 9:42 AM [...]
--- OUTSIDE RECORDS SUMMARY | ~2020-06-23 | XMS | Encounter Summary ---
Demographics + + + | Address | [address] | | | [place] [address] | + + + | Home Phone [...] Team Providers + +------+ + | Care Grain Inspector Name | Role | Phone | [...] | | | | regional | ,PhD [address] | | | | | | pain | [address] | | | | | | syndrome | [address] | | | | | | type [address] of | Rd | | | | | | left lower | [place], [place] | | | | | | extremity | [address] | | | | | | Procedures | Phone: | | | | | | PHYSICAL | [phone] | | | | | | THERAPY | Fax: | | | | | | REFERRAL | [phone] | | +--------+--------+ + + + + Encounter Details +--------+ + + + + | Date | Type | Department | Care Team | Description | +--------+ + + + + | 01/22/ | Telephone | [facility] Comprehensive | Alex Sanchez, | | | 2019 | | Pain Center at | ,PhD [address] [facility] | | | | | [facility] | [facility] | | | | | [address] | [place], [place] | | | | | [facility] | [address] | | | | | and [place], | [phone] | | | | | | | | | | | Floor [place], [place] | | | | | | [address] | | | | | | [phone] | | | +--------+ + + + [...]
--- OUTSIDE RECORDS SUMMARY | ~2020-06-23 | XMS | Encounter Summary ---
Demographics + + + | Address | [address] | | | [place] [address] | + + + | Home Phone [...] Providers + +------+ + | Care Human Development Professor Name | Role | Phone | [...] + | 09/30/ | Telephone | [facility] | Ilene Bright, | Phone communication | | 2017 | | Pain Center at | TUBE WRAPPER [address] | | | | | [facility] | [place], [place] | | | | | [address] | [address] | | | | | [facility] | [phone] | | | | | and Healing, | | | | | | Building | | | | | | Floor [facility] [place] | | | | | | [address] | | | | | | [phone] | | | +--------+ + + + [...]
--- OUTSIDE RECORDS SUMMARY | ~2020-06-23 | XMS | Encounter Summary ---
[...] Providers + +------+ + | Care Measurement And Verification Engineer Name | Role | Phone | [...] | (ortho question) | | | | [facility] | [facility] | | | | | [address] | [place], [place] | | | | | [facility] | [address] | | | | | and Healing, | [phone] | | | | | | | | | | | Floor [place], [place] | | | | | | [address] | | | | | | [phone] | | | +--------+ + + + [...]
--- OUTSIDE RECORDS SUMMARY | ~2020-06-23 | XMS | Encounter Summary ---
Demographics + + + | Address | [address] | | | [place] [address] | + + + | Home Phone [...] Team Providers + +------+ + | Care Generating Station Mechanic Name | Role | Phone | [...] evaluation (No | | | | [facility] | [facility] [id number] | evidence of drug | | | | [address] | [place], [place] | abuse) | | | | [facility] | [address] | | | | | and Healing, | [phone] | | | | | [facility] | | | | | | Floor [place], [place] | | | | | | [address] | | | | | | [phone] | | | +--------+ + + + [...]
--- OUTSIDE RECORDS SUMMARY | ~2020-06-23 | XMS | Encounter Summary ---
Demographics + + + | Address | [address] | | | [place] [address] | + + + | Home Phone [...] Providers + +------+ + | Care Plate Preparer Name | Role | Phone | + +------+ + | Allegra Gandhi | PCP | | + +------+ + Encounter Details +--------+ + + + + | Date | Type | Department | Care Team | Description | +--------+ + + + + | 08/02/ | Results | [facility] | Janak Riojas, | | | 2011 | Only | Pain Center at | MD [address] [facility] | | | | | [facility] | [facility] [address] | | | | | [address] | [place], [place] | | | | | Center for Health | [address] | | | | | and [place], | [phone] | | | | | | | | | | | Floor [place], [place] | | | | | | [address] | | | | | | [phone] | | | +--------+ + + + [...]
--- OUTSIDE RECORDS SUMMARY | ~2020-06-23 | XMS | Encounter Summary ---
Demographics + + + | Address | [address] | | | [place] [address] | + + + | Home Phone [...] + +------+ + | Care Medical Office Asst Name | Role | Phone | + +------+ + | Justo Vazquez MD | PCP | | + +------+ + Encounter Details +--------+ + + + + | Date | Type | Department | Care Team | Description | +--------+ + + + + | 01/02/ | Telephone | [facility] | Ilene Bright, | | | 2019 | | Pain Center at | AVIONICS INSTALLER [address] | | | | | [facility] | [place], [place] | | | | | [address] | [address] | | | | | [place] for [facility] | [phone] | | | | | and Healing, | | | | | | | | | | | | Floor [place], [place] | | | | | | [address] | | | | | | [phone] | | | +--------+ + + + [...]
--- OUTSIDE RECORDS SUMMARY | ~2020-06-23 | XMS | Encounter Summary ---
Demographics + + + | Address | [address] | | | [place] [address] | + + + | Home Phone [...] Providers + +------+ + | Care Finish Cleaner Name | Role | Phone | + +------+ + | Justo Vazquez MD | PCP | | + +------+ + Encounter Details +--------+ + + + + | Date | Type | Department | Care Team | Description | +--------+ + + + + | 05/18/ | Telephone | [facility] | Alex Sanchez, | | | 2019 | | Pain Center at | ,PhD [address] | | | | | [facility] | [address] | | | | | [address] | [place], [place] | | | | | [place] for [facility] | [address] | | | | | and Healing, | [phone] | | | | | | | | | | | Floor [place], [place] | | | | | | [address] | | | | | | [phone] | | | +--------+ + + + [...]
--- OUTSIDE RECORDS SUMMARY | ~2020-06-23 | XMS | Encounter Summary ---
Demographics + + + | Address | [address] | | | [place] [address] | + + + | Home Phone [...] Team Providers + +------+ + | Care Directory Clerk Name | Role | Phone | [...] Medication Question | | 2016 | | [place] [address] [address] | | | | | | [facility] | | | | | | for Health and | | | | | | Healing, [facility] 2 | | | | | | [place], [place] | | | | | | [address] | | | | | | [phone] | | | +--------+ + + + [...]
--- OUTSIDE RECORDS SUMMARY | ~2020-06-23 | XMS | Encounter Summary ---
Demographics + + + | Address | [address] | | | [place] [address] | + + + | Home Phone | | + + + | Preferred Language | Unknown | + + + | Marital Status | Single | + + + | Judaism Affiliation | 1073 | + + + | Race | Unknown | + + + | Ethnic Group | Unknown | + + + Author + + + | Author | [facility] | | | and Marvinana | + + + | Organization | [facility] | | | and [...] [place] | | | | | [address] | | + + + + + | Bryant Farah | ECON | Unknown | | + + + + + Care Team Providers + +------+ + | Care Chief Medical Director Name | Role | Phone | + +------+ + PCP | Unavailable | + +------+ + Encounter Details +--------+ + + + + | Date | Type | Department | Care Team | Description | +--------+ + + + + | 03/20/ | Hospital | [facility] | Ulices Hayes, | 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 T his also failed to provide [...] stable condition. She will follow-up with her [facility] physician for continued medical management. She [...] 03/22/131929 Date of Service: 03/22/131920 Status: Signed Button Bradder: Ava Sue RN (Registered Nurse) Patient tolerated [...] 03/22/131854 Date of Service: 03/22/131854 Status: Signed Button Bradder: Ava Sue RN (Registered Nurse) Discharge teaching [...] 0657 Date of Service: 03/22/13651 Status: Signed Button Bradder: Ulices Hayes MD (Physician) [facility] Service: Interventional Pain Management Pre-Operative History [...] Author: JUSTIN Ospina Service: (none) Author Type: Oracle Iam Consultant Filed: 03/21/131035 Date of Service: 03/21/131031 Status: Addendum Button Bradder: JUSTIN Ospina (Oracle Iam Consultant) Related Notes: Original Note by JUSTIN Ospina (Oracle Iam Consultant) filed at 03/21/13 1 036 Met w/22yo F Pt who lives w/parents in [place], [place]. Pt lives in two story house [...] home. Pt has info for financial co In[employer]. lices Brock MD - 03/21/2013 7:27 AM PDT Progress Notes by Ulices Hayes MD at 03/21/13726 Author: Ulices Hayes MD Service: Interventional Pain Management Author Type: Physic deya Filed: 03/21/13 0735 Date of Service: 03/21/13726 Status: Signed Button Bradder: Ulices Hayes MD (Physician) [facility] Service: Interventional Pain Management Pre-Operative History [...] 03/21/1346 Date of Service: 03/21/13639 Status: Signed Button Bradder: Darlin Orlando RN (Registered Nurse) Pt had [...] Date of Service: 03/19/13 1034 Status: Addendum Button Bradder: Ulices Hayes MD (Physician) Related Notes: Original Note by Nataliia Lindsey RN (Registered Nurse) filed at 03/19/13 1 049 [facility] Service: Interventional Pain Management History and [...] since. She has undergone extensive therapy at [facility] at pain clinics in [place] as well and [place], [place]. She has had sympathetic nerv e [...] oriented x4. Head: Normocephalic and atraumatic. Eyes: Holiday conjunctiva and sclera clear Mouth: No deformity [...] since. She has undergone extensive therapy at [facility] at pain clinics in [place] as well and [place], [place]. She has had sympathetic nerve blocks [...] 03/22/13838 Date of Service: 03/22/13838 Status: Signed Button Bradder: Ava Sue RN (Registered Nurse) Problem: Pain [...] Date of Service: 03/22/13 0215 Status: Signed Button Bradder: Marleen Sheppard RN (Registered Nurse) Problem: Pain [...] 1058 Date of Service: 03/21/131057 Status: Signed Button Bradder: Ava Sue RN (Registered Nurse) Problem: Pain [...] 03/20/132153 Date of Service: 03/20/131899 Status: Signed Button Bradder: Justo Romeo RN (Registered Nurse) Problem: Pain [...] Note by Ulices Hayes MD at 03/20/13 1126 Author: Ulices Hayes MD Service: Interventional Pain Management Author Type: Physic deya Filed: 03/20/13 1132 Date of Service: 03/20/131123 Status: Signed Button Bradder: Ulices Hayes MD (Physician) [facility] Service: Interventional Pain Management Operative Note Pre-operative Diagnosis: #1. Complex regional pain syndrome. #2. Chronic pain syndrome Post-operative Diagnosis: Same Procedure(s): Placement of intrathecal catheter for trial of intrathecal pain medications for pain control. Surgeon: ULICES HAYES MD Termite Exterminator(s): none Anesthesia: Moderate sedation and local anesthesia. [...]
--- OUTSIDE RECORDS SUMMARY | ~2020-06-23 | XMS | Encounter Summary ---
Demographics + + + | Address | [address] | | | [place] [address] | + + + | Home Phone [...] Team Providers + +------+ + | Care Cadastral Engineer Name | Role | Phone | [...] | | | | | [address] | | | | | | [address] | | | | | | [place], | | | | | | [address] [place] [address], | | | | | | [place] [address] | | | | | | [phone] | | | +--------+ + + + [...]
--- OUTSIDE RECORDS SUMMARY | ~2020-06-23 | XMS | Encounter Summary ---
Demographics + + + | Address | [address] | | | [place] [address] | + + + | Home Phone [...] + +------+ + | Care Drill Press Tender Name | Role | Phone | [...]
--- OUTSIDE RECORDS SUMMARY | ~2020-06-23 | XMS | Encounter Summary ---
Demographics + + + | Address | [address] | | | [place] [address] | + + + | Home Phone [...] Providers + +------+ + | Care Ground Water Contractor Name | Role | Phone | [...] Oliveira | | 2011 | IP | [address] | | House - Approved | | | | [place]iana Maldonado [place], | | | | | | [place] [address] | | | +--------+ + + + [...]
--- OUTSIDE RECORDS SUMMARY | ~2020-06-23 | XMS | Encounter Summary ---
Demographics + + + | Address | [address] | | | [place] [address] | + + + | Home Phone [...] Team Providers + +------+ + | Care Take Away Attendant Name | Role | Phone | [...] + + | 10/06/ | Telephone | [facility] | Yosef Kenney MD | Dermatitis | | 2018 | | Pain Center at | [address] | | | | | [facility] | [facility] | | | | | [address] | [place] [address] | | | | | [facility] | [phone] | | | | | and Healing, | | | | | | [facility] | | | | | | [place], [place] | | | | | | [address] | | | | | | [phone] | | | +--------+ + + + [...]
--- OUTSIDE RECORDS SUMMARY | ~2020-06-23 | XMS | Encounter Summary ---
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 | | | | Therapy | CRPS | Janak Martinez MD | [address] | | | | | (complex | [address] | | | | | regional | [address] | Mailcode: | | | | | pain | Mailstop | [facility] | | | | | syndrome), | [id number] | for Health | | | | | lower limb | [place], [place] | and Healing, | | | | | Gait | [address] | Building [address] | | | | | disturbance | Phone: | [place], [place] | | | | | Muscle pain | [phone] | [address] | | | | | Procedures | Fax: | Phone: | | | | | PHYSICAL | [phone] | [phone] | | | | | THERAPY | [...] | | | | [address] | [place] [address] | syndrome), lower | | | | [address] | [phone] | limb (Primary Dx) | | | | [facility] | | | | | | and Healing, | | | | | | Building 1, | | | | | | Floor [place], [place] | | | | | | [address] | | | | | | [phone] | | | +--------+---------+ + + + [...] might be different f rom the original. [id number] BRODY FARAH Date of : 1990 Start of care: 02/14/2012 Date of onset: 02/14/2012 Referring/Attending Practitioner: Janak Riojas MD . Primary/Referral Diagnosis/ICD-9: 355.71B CRPS (complex regional pain syndrome), lower limb Insurance: Payor: [facility] Plan: BCBS OUT OF STATE Product Type: PP O Service period from: 02/14/2012 to: 08/12/2012 Number visits used/authorized: 01/23 [facility] PHYSICAL THERAPY PROGRESS NOTE SUBJECTIVE: Age: 21 y.o. Sex: female Chief complaint: No chief complaint on file. Current: pt has been doing her neck exercises. She is not shaking as much. Her foot hurts t bruno. Now she is working at [employer] 2-3 hours per week, and spends a [...] in their status. Guillermo Sanon MSPT [facility] Outpatient Rehabilitation Services Mailcode: Ch3t [address] [facility], [address] [place] [address] documented in this encounter Plan of [...]
--- OUTSIDE RECORDS SUMMARY | ~2020-06-23 | XMS | Encounter Summary ---
Demographics + + + | Address | [address] | | | [place] [address] | + + + | Home Phone [...] Team Providers + +------+ + | Care Internal Medicine Nurse Practitioner Name | Role | Phone [...] Rd | | | | | | [place], [place] | | | | | | [address] | | | +--------+ + + + [...]
--- OUTSIDE RECORDS SUMMARY | ~2020-06-23 | XMS | Encounter Summary ---
Demographics + + + | Address | [address] | | | [place] [address] | + + + | Home Phone [...] Team Providers + +------+ + | Care Miter Cutter Name | Role | Phone | [...] 2016 | | Pain Center at | DIRECT CUSTOMER SERVICE REPRESENTATIVE [address] | | | | | [facility] | [place], [place] | | | | | [address] | [address] | | | | | [facility] | [phone] | | | | | and Healing, | | | | | | [facility] | | | | | | [place], [place] | | | | | | [address] | | | | | | [phone] | | | +--------+ + + + [...]
--- OUTSIDE RECORDS SUMMARY | ~2020-06-23 | XMS | Encounter Summary ---
Demographics + + + | Address | [address] | | | [place] [address] | + + + | Home Phone [...] Providers + +------+ + | Care Outside Cutter Hand Name | Role | Phone | + +------+ + | Justo Vazquez MD | PCP | | + +------+ + Encounter Details +--------+ + + + + | Date | Type | Department | Care Team | Description | +--------+ + + + + | 03/12/ | Telephone | [facility] | Alex Sanchez, | | | 2019 | | Pain Center at | ,PhD [address] | | | | | [facility] | [address] | | | | | [address] | [place], [place] | | | | | [place] for [facility] | [address] | | | | | and Healing, | [phone] | | | | | | | | | | | Floor [place], [place] | | | | | | [address] | | | | | | [phone] | | | +--------+ + + + [...]
--- OUTSIDE RECORDS SUMMARY | ~2020-06-23 | XMS | Encounter Summary ---
Demographics + + + | Address | [address] | | | [place] [address] | + + + | Home Phone [...] Providers + +------+ + | Care Associate Professor Of Art History Name | Role | Phone | + [...] + + | 01/11/ | Telephone | [facility] | Alex Sanchez, | Referral To | | 2018 | | Pain Center at | ,PhD [address] | Orthopedics (discuss | | | | [facility] | [address] | ortho appointment) | | | | [address] | [place], [place] | | | | | [facility] | [address] | | | | | and Healing, | [phone] | | | | | Building | | | | | | Floor [facility] [place] | | | | | | [address] | | | | | | [phone] | | | +--------+ + + + [...]
--- OUTSIDE RECORDS SUMMARY | ~2020-06-23 | XMS | Encounter Summary ---
Demographics + + + | Address | [address] | | | [place] [address] | + + + | Home Phone [...] Providers + +------+ + | Care Clinical Laboratory Assistant Name | Role | Phone | [...] [address] | | | | | [address] | [place], [place] | | | | | [place] for [facility] | [address] | | | | | and Healing, | [phone] | | | | | | | | | | | Floor [place], [place] | | | | | | [address] | | | | | | [phone] | | | +--------+ + + + [...]
--- OUTSIDE RECORDS SUMMARY | ~2020-06-23 | XMS | Encounter Summary ---
Demographics + + + | Address | [address] | | | [place] [address] | + + + | Home Phone [...] Providers + +------+ + | Care Physical Ther Name | Role | Phone | + [...] | | | 2019 | Event | [facility] | MD Juan [address] | | | | | and Healing Surgery | [address] | | | | | Center Admitting | [place], [place] | | | | | Desk Located on the | [address] | | | | | 4th floor [address] | [phone] | | | | | [address] [place], | | | | | | [place] [address] | Arben Valerio MD | | | | | | [address] | | | | | | [address] | | | | | | [place], [place] | | | | | | [address] | | | | | | [phone] | | | | | | | [...]
--- OUTSIDE RECORDS SUMMARY | ~2020-06-23 | XMS | Encounter Summary ---
Demographics + + + | Address | [address] | | | [place] [address] | + + + | Home Phone [...] Providers + +------+ + | Care Animal Sticker Name | Role | Phone | + [...] | Alex Alba, | [facility] [address] | | | | | regional | ,PhD [address] | [address] | | | | | pain | [address] | | | | | syndrome | [address] | [address], | | | | | type 1 of | Rd | Basement | | | | | left lower | [place], [place] | [place], [place] | | | | | extremity | [address] | [address] | | | | | Muscle pain | Phone: | Phone: | | | | | Procedures | [phone] | [phone] | | | | | NM BONE | Fax: | Fax: | | | | | &/OR JOINT | [phone] | [phone] | | | | | IMAGING | [...] | | | | | | NE BONE | | | | | | | IMAGING, | | | | | | | LIMITED AREA | | | | | | | NE BONE | | | | | | [...] | 2018 | Encounter | at [facility] [address] | ,PhD [address] [facility] | | | | | [address] | [address] | | | | | [address], | [place], [place] | | | | | [facility], | [address] | | | | | [place] [address] | [phone] | | | | | [phone] | | | +--------+ + + + [...]
--- OUTSIDE RECORDS SUMMARY | ~2020-06-23 | XMS | Encounter Summary ---
Demographics + + + | Address | [address] | | | [place] [address] | + + + | Home Phone [...] Team Providers + +------+ + | Care Ramp Agent Name | Role | Phone | [...] 2015 | | Center at [facility] [address] | MD Melissa | | | | | S [facility] | | | | | | for Health and | | | | | | Healing, Building [address] | | | | | | [place], [place] | | | | | | [address] | | | | | | [phone] | | | +--------+ + + + [...]
--- OUTSIDE RECORDS SUMMARY | ~2020-06-23 | XMS | Encounter Summary ---
Demographics + + + | Address | [address] | | | [place] [address] | + + + | Home Phone [...] Providers + +------+ + | Care Child Care Specialist Name | Role | Phone [...] + + | 09/15/ | Telephone | [facility] | Alex Sanchez, | Question | | 2018 | | Pain Center at | ,PhD [address] | | | | | [facility] | [address] | | | | | [address] | [place], [place] | | | | | [facility] | [address] | | | | | and [place], | [phone] | | | | | Building | | | | | | Floor [place], [place] | | | | | | [address] | | | | | | [phone] | | | +--------+ + + + [...]
--- OUTSIDE RECORDS SUMMARY | ~2020-06-23 | XMS | Encounter Summary ---
Demographics + + + | Address | [address] | | | [place] [address] | + + + | Home Phone [...] Providers + +------+ + | Care Operations Trainer Name | Role | Phone | [...] | 2017 | | Center at [facility] [address] | | Review | | | | S [facility] | | | | | | for Health and | | | | | | [facility], [facility] 2 | | | | | | [place], [place] | | | | | | [address] | | | | | | [phone] | | | +--------+ + + + [...]
--- OUTSIDE RECORDS SUMMARY | ~2020-06-23 | XMS | Encounter Summary ---
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 | | | | Therapy | CRPS | Janak Martinez MD | [address] | | | | | (complex | [address] | | | | | regional | [address] | Mailcode: | | | | | pain | Mailstop | [facility] | | | | | syndrome), | [id number] | for Health | | | | | lower limb | [place], [place] | and Healing, | | | | | Gait | [address] | [address] 1 | | | | | disturbance | Phone: | [place], [place] | | | | | Muscle pain | [phone] | [address] | | | | | Procedures | Fax: | Phone: | | | | | PHYSICAL | [phone] | [phone] | | | | | THERAPY | [...] | | | | [address] | [place] [address] | syndrome), lower | | | | [address] | [phone] | limb (Primary Dx) | | | | [facility] | | | | | | and Healing, | | | | | | Building 1, | | | | | | Floor [place], [place] | | | | | | [address] | | | | | | [phone] | | | +--------+---------+ + + + [...] this encounter Patient Instructions Patient Instructions Guillermo aSnon PT - 05/03/2012 3:14 PM PDT documented in this encounter Progress Notes Guillermo Sanon I, PT - 05/03/2012 3:08 PM PDTFormatting of this note might be different f rom the original. [id number] BRODY FARAH Date of : 1990 Start of care: 02/14/2012 Date of onset: 02/14/2012 Referring/Attending Practitioner: Janak Riojas MD . Primary/Referral Diagnosis/ICD-9: 355.71B CRPS (complex regional pain syndrome), lower limb Insurance: Payor: [facility] [employer] [facility] Plan: BCBS OUT OF STATE Product Type: PP O Service period from: 02/14/2012 to: 08/12/2012 Number visits used/authorized: 12/26 [facility] PHYSICAL THERAPY PROGRESS NOTE SUBJECTIVE: Age: 21 y.o. Sex: female Chief complaint: No chief complaint on file. 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 She is doing much better ov [facility], possibly because she finished school and so has less stress. She stopped using crutch es in early April (18 days ago) which is less stressful. Now she is working at [employer] 2-3 hours per week, and spends a [...] two sympathetic nerve blocks. She saw Dr iRojas today already. Pain rating at present: 8/10 [...] sometimes pain meds. Social History: lives in [place], 22 years old, not working [...] or concerns about therapy: she lives in [place]. She is r equesting family [...] change in their status. Guillermo Sanon MSPBren [facility] Outpatient Rehabilitation Services Mailcode: Ch3p [address] [facility], 1st Floor [facility] [address] documented in this encounter Plan of Treatment Not on filedocumented as of this encounter Procedures + +--------+ + + + | Procedure Name | Priori | Date/Time | Associated Diagnosis | Comments | | | ty | | | | + +--------+ + + + | LA THERAPEUTIC | Routin | 05/03/2012 | CRPS [...]
--- OUTSIDE RECORDS SUMMARY | ~2020-06-23 | XMS | Encounter Summary ---
Demographics + + + | Address | [address] | | | [place] [address] | + + + | Home Phone [...] Providers + +------+ + | Care Aircraft Tool Maker Name | Role | Phone | [...] | Pain Center at | ,PhD [address] [facility] | sig) | | | | [facility] | [address] | | | | | [address] | [place], [place] | | | | | [facility] | [address] | | | | | and [address], | [phone] | | | | | [facility] | | | | | | Floor [place], [place] | | | | | | [address] | | | | | | [phone] | | | +--------+ + + + [...]
--- OUTSIDE RECORDS SUMMARY | ~2020-06-23 | XMS | Encounter Summary ---
Demographics + + + | Address | [address] | | | [place] [address] | + + + | Home Phone [...] Providers + +------+ + | Care Community Health Advocate Name | Role | Phone | [...] Center at [facility] [address] | | pain | | | | [address] [facility] | | | | | | for Health and | | | | | | Healing, Building 2 | | | | | | [place], [place] | | | | | | [address] | | | | | | [phone] | | | +--------+ + + + [...]
--- OUTSIDE RECORDS SUMMARY | ~2020-06-23 | XMS | Encounter Summary ---
Demographics + + + | Address | [address] | | | [place] [address] | + + + | Home Phone [...] Providers + +------+ + | Care Brand Development Manager Name | Role | Phone [...] [address] | | | | | [address] | [place], [place] | | | | | [place] for [place] | [address] | | | | | and Healing, | [phone] | | | | | | | | | | | Floor [place], [place] | | | | | | [address] | | | | | | [phone] | | | +--------+ + + + [...]
--- OUTSIDE RECORDS SUMMARY | ~2020-06-23 | XMS | Encounter Summary ---
Demographics + + + | Address | [address] | | | [place] [address] | + + + | Home Phone [...] Team Providers + +------+ + | Care Final Inspector Motorcyles Name | Role | Phone | + +------+ + | Justo Vazquez MD | PCP | | + +------+ + Encounter Details +--------+ + + + + | Date | Type | Department | Care Team | Description | +--------+ + + + + | 09/25/ | Pharmacy | [facility] | | | | 2018 | Visit | & [facility] | | | | | | [address] | | | | | | Mailcode: [place] | | | | | | [facility] and | | | | | | Healing, Building [address] | | | | | | [place], [place] | | | | | | [address] | | | | | | [phone] | | | +--------+ + + + [...]
--- OUTSIDE RECORDS SUMMARY | ~2020-06-23 | XMS | Encounter Summary ---
Demographics + + + | Address | [address] | | | [place] [address] | + + + | Home Phone | | + + + | Preferred Language | Unknown | + + + | Marital Status | Single | + + + | Evangelical Affiliation | 1073 | + + + | Race | Unknown | + + + | Ethnic Group | Unknown | + + + Author + + + | Author | [facility] | | | and [place] | + + + | Organization | [facility] | | | and [...] [place] | | | | | [address] | | + + + + + | Bryant Farah | ERICKA | Unknown | | + + + + + Care Team Providers + +------+ + | Care Algebra Teacher Name | Role | Phone | [...] | | | | | | [place] [address] | | | | | | [phone] | | | +--------+ + + + [...]
--- OUTSIDE RECORDS SUMMARY | ~2020-06-23 | XMS | Encounter Summary ---
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 Surgery check-in location: [facility] Day Stay - [place] [facility], 4th floor Surgery Check in Time: [...] it is after office hours, call the [facility] sash clamp operator at [phone] and ask them to page him or h er. documented in this encounter Progress Notes Catie Smart NP - 11/27/2018 2:05 PM PST PREOPERATIVE CONSULT NOTE Author: Catie Smart NP Referring Physician: Alex Sanchez MD Primary Care Provider: Justo Vazquez MD Reason for Consult: Preoperative evaluation and risk assessment Proposed Procedure/Date: implant SCS; 12/05/2018 Proposed Procedure Location: [facility] HISTORY OF PRESENT ILLNESS: Tracie Farah [...] renal failure no electrolyte abnormalities no dialysis Urology/Lime Mixer Tender: Interstitial cystitis LMP: irreg bleeding, ~11/14/2018, IUD [...] oral recon soln Take as directed by [facility] ASYM III A [place] [facility]- 2 gallon bowel prep polyethylene glycol 17 [...] patient is a lso currently scheduled at [facility] [place] and is meeting inclusion criteria [...] to this patient's care. Catie Smart NP [facility] PBB PREOPERATIVE MEDICINE CLINIC AT [facility] 4TH FLOOR [address] [facility] [address] I advised the patient regarding NPO [...]
--- OUTSIDE RECORDS SUMMARY | ~2020-06-23 | XMS | Encounter Summary ---
Demographics + + + | Address | [address] | | | [place] [address] | + + + | Home Phone [...] + +------+ + | Care Dining Room Captain Name | Role | Phone | [...] Alex Alba, | [facility] [address] | | | | | regional | ,PhD [address] | Pavilion | | | | | pain | [address] | [address] | | | | | syndrome | [address] | [address], | | | | | type 1 of | Rd | Basement | | | | | left lower | [place], [place] | [place], [place] | | | | | extremity | [address] | [address] | | | | | Muscle pain | Phone: | Phone: | | | | | Procedures | [phone] | [phone] | | | | | NM BONE | Fax: | Fax: | | | | | &/OR JOINT | [phone] | [phone] | | | | | IMAGING | [...] | 2018 | Encounter | at [facility] [address] | ,PhD [address] [facility] | | | | | [address] | [address] | | | | | [address], | [place], [place] | | | | | [facility], | [address] | | | | | [place] [address] | [phone] | | | | | [phone] | | | +--------+ + + + [...]
--- OUTSIDE RECORDS SUMMARY | ~2020-06-23 | XMS | Encounter Summary ---
Demographics + + + | Address | [address] | | | [place] [address] | + + + | Home Phone [...] + +------+ + | Care Office Machines Sales Representative Name | Role | Phone [...] | | Pain | Complex | Ilene, SUPERVISOR INSPECTION ROOM | Hanna M, | | | | Management | regional | [address] | PS[address] | | | | | pain | [address] | [address] | | | | | syndrome | [place], [place] | [place], [place] | | | | | type 1 of | [address] | [address] Phone: | | | | | left lower | Phone: | [phone] | | | | | extremity | [phone] | Fax: | | | | | Intractable | Fax: | [phone] | | | | | cyclical | [phone] | | | | | | vomiting [...] | | | | | | ID | | | | | | | PSYCHIATRIC | | | | | | | DIAGNOSTIC | | | | | | | EVAL, NO MED | | | | | | | SVCS ID | | | | | | | PSYCH TSTNG | | | | | | | PSYCH/PHYS | | | | | | | ID | | | | | | | [...] Pain Medicine | Diagnoses | Chasity, | Irrigation Foreman Chh1 | | | | / Pain | Abdominal | MD Kenny | [address] | | | | Management | pain, | [address] [facility] | [facility] | | | | | unspecified | [facility] | for Health | | | | | location | Rd | and Healing, | | | | | Procedures | [place], [place] | [facility] | | | | | CONSULT TO | [address] | 1,15th Floor | | | | | PAIN | | [facility] [place] | | | | | MANAGEMENT | | [address] | | | | | | | Phone: | | | | | | | [phone] | | | | | | | Fax: | | | | | | | [phone] | +--------+--------+ + + + + Encounter Details +--------+---------+ + + + | Date | Type | Department | Care Team | Description | +--------+---------+ + + + | 04/25/ | Office | [facility] | Ilene Bright, | Abdominal pain, | | 2017 | Visit | Pain Center at | SUPERVISOR INSPECTION ROOM [address] | unspecified location | | | | [facility] | [place], [place] | (Primary Dx); | | | | [address] | [address] | Complex regional | | | | [place] [facility] | [phone] | pain syndrome type 1 | | | | and Healing, | | of left lower | | | | Building 1,15 | | extremity; | | | | Floor [place], [place] | | Intractable cyclical | | | | [address] | | vomiting with | | | | [phone] | | nausea; | | | | [...] encounter Patient Instructions Patient Instructions Ilene Bright, SUPERVISOR INSPECTION ROOM - 04/25/2017 1:35 PM PDTKelly, Nice to [...] Freddie Guadalupe MD [email or web address] Ilene Childs DNP, SUPERVISOR INSPECTION ROOM-C [facility] [address] [place] [address] documented in this encounter Progress Notes Ilene Bright FNP - 04/25/2017 1:35 PM PDTFormatting of this note might be different fr om the original. Date: 04/25/2017 was referred for pain management consultation by Kenny Gaspar MD [address] [place] [address] Reason for consult: abdominal pain Chief Complaint Patient presents with Abdominal pain Back pain History of Present Illness: Tracie Farah is a 26 year old female with a history of depression, complex regional pain syndrome (left lower extremity) for this she follows with a neurologist at [facility]. She has been stable on [...] effective treatments include: medication (toradol). lives in [place], [place] alone and with her children. She receives disability. does not have specific goals for today's appointment. 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 No Do you drink alcohol to decrease [...] 08/02/2012 [facility], Surgeon: Janak Riojas MD Cholecystectomy [...] History Social History Narrative Single. Goes to [employer] with a light load. Has been working at [employer], can' t work on [employer]. Has roommates. Allergies Allergen Reactions Morphine Anaphylaxis [...] by physician. Concentration is 150mg/mL. Compounded by [facility] ) LAMOTRIGINE 200 MG TABLET Take [...] ENTEROGRAPHY ABDOMEN AND PELVIS WWO CONTRAST Order: [id number] Performed: 01/31/2017 4:34 PM Status: Final result [...] 3:50 PM X-RAY ABDOMEN 1 VIEW Order: [id number] Performed: 03/19/2017 6:52 AM Status: Final result [...] and summary of old medical records (source: [employer]), as summarized in the body of [...] possible opioid-sparing effects (Stevie Paulino et al.C Invisible Puppy, (8):1655-70, 2007) and evidence that it can [...] [facility] [address] [place] [address] Display Progress Note in MyChart: No documented [...]
--- OUTSIDE RECORDS SUMMARY | ~2020-06-23 | XMS | Encounter Summary ---
Demographics + + + | Address | [address] | | | [place] [address] | + + + | Home Phone [...] Providers + +------+ + | Care Regional Controller Name | Role | Phone | [...] | Complex | Alex Alba, | [facility] [address] | | | | | regional | ,PhD [address] | Pavilion | | | | | pain | [address] | [address] | | | | | syndrome | [address] | [address], | | | | | type 1 of | Rd | Basement | | | | | left lower | [place], [place] | [place], [place] | | | | | extremity | [address] | [address] | | | | | Muscle pain | Phone: | Phone: | | | | | Procedures | [phone] | [phone] | | | | | NM BONE | Fax: | Fax: | | | | | &/OR JOINT | [phone] | [phone] | | | | | IMAGING | [...] | | | | | | OR BONE | | | | | | | IMAGING, | | | | | | | LIMITED AREA | | | | | | | OR BONE | | | | | | | IMAGING | | | | | | | (SPECT) | | | +--------+--------+ + + + + Encounter Details +--------+ + + + + | Date | Type | Department | Care Team | Description | +--------+ + + + + | 12/27/ | Ancillary | [facility] Comprehensive | Alex Sanchez, | | | 2018 | Orders | Pain Center at | ,PhD [address] [facility] | | | | | [facility] | [address] | | | | | [address] | [place], [place] | | | | | [facility] | [address] | | | | | and Martina, | [phone] | | | | | [facility] | | | | | | Floor [place], [place] | | | | | | [address] | | | | | | [phone] | | | +--------+ + + + [...] Note | + + | Service Account, Bloc Res In Interface - 12/28/2017 11:43 AM [...]
--- OUTSIDE RECORDS SUMMARY | ~2020-06-23 | XMS | Encounter Summary ---
Demographics + + + | Address | [address] | | | [place] [address] | + + + | Home Phone [...] Providers + +------+ + | Care Hospital Insurance Representative Name | Role | Phone | + +------+ + | Justo Vazquez MD | PCP | | + +------+ + Encounter Details +--------+ + + + + | Date | Type | Department | Care Team | Description | +--------+ + + + + | 03/12/ | Telephone | [facility] | Alex Sancehz, | | | 2019 | | Pain Center at | ,PhD [address] | | | | | [facility] | [address] | | | | | [address] | [place], [place] | | | | | [place] [facility] | [address] | | | | | and Healing, | [phone] | | | | | | | | | | | Floor [place], [place] | | | | | | [address] | | | | | | [phone] | | | +--------+ + + + [...]
--- OUTSIDE RECORDS SUMMARY | ~2020-06-23 | XMS | Encounter Summary ---
Demographics + + + | Address | [address] | | | [place] [address] | + + + | Home Phone [...] Providers + +------+ + | Care Ramp And Cargo Supervisor Name | Role | Phone | [...] | | Pain Center at | ,PhD [address] [facility] | (ketamine) | | | | [facility] | [facility] | | | | | [address] | [place], [place] | | | | | [facility] | [address] | | | | | and Martina, | [phone] | | | | | [facility] | | | | | | Floor [place], [place] | | | | | | [address] | | | | | | [phone] | | | +--------+--------+ + + + [...]
--- OUTSIDE RECORDS SUMMARY | ~2020-06-23 | XMS | Encounter Summary ---
Demographics + + + | Address | [address] | | | [place] [address] | + + + | Home Phone [...] Providers + +------+ + | Care District Agent Name | Role | Phone | + +------+ + | Justo Vazquez MD | PCP | | + +------+ + Encounter Details +--------+ + + + + | Date | Type | Department | Care Team | Description | +--------+ + + + + | 12/02/ | Document-Sc | Health Information | Unknown . | | | 2017 | anned | Services [id number] | | | | | | [address] | | | | | | Mailcode: OP17A | | | | | | [facility] | | | | | | [place], [place] | | | | | | [address] | | | | | | [phone] | | | +--------+ + + + [...]
--- OUTSIDE RECORDS SUMMARY | ~2020-06-23 | XMS | Encounter Summary ---
Demographics + + + | Address | [address] | | | [place] [address] | + + + | Home Phone [...] + +------+ + | Care Forest Fire Prevention Manager Name | Role | Phone | + +------+ + | Justo Vazquez MD | PCP | | + +------+ + Encounter Details +--------+------+ + + + | Date | Type | Department | Care Team | Description | +--------+------+ + + + | 12/14/ | Lab | Laboratory at [facility] | | Complex regional | | 2018 | | [address] | | pain syndrome type 1 | | | | Center for [facility] | | of left lower | | | | and Healing, | | extremity; Muscle | | | | Building 2 | | pain | | | | [place], [place] | | | | | | [address] | | | | | | [phone] | | | +--------+------+ + + + [...] + + + + + | [facility] | [address] [facility] | [place] [address] | | | [address] | GUILLERMO [...]
--- OUTSIDE RECORDS SUMMARY | ~2020-06-23 | XMS | Encounter Summary ---
Demographics + + + | Address | [address] | | | [place] [address] | + + + | Home Phone [...] Providers + +------+ + | Care Housekeeping Associate Name | Role | Phone | [...] | | | sympathetic | [place] | [address]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 | FAMILY | Mailstop | | | | | of lower | MEDICINE P | [address] | | | | | limb | [address] | [place], [place] | | | | | | [place], | [address] | | | | | | [place] [address] | Phone: | | | | | | Phone: | [phone] | | | | | | [phone] | Fax: | | | | | | Fax: | [phone] | | | | | | [phone] | | +--------+--------+ + + + + Encounter Details +--------+---------+ + + + | Date | Type | Department | Care Team | Description | +--------+---------+ + + + | 09/04/ | Office | [facility] Comprehensive | Dale Cantu, | CRPS (complex | | 2011 | Visit | Pain Center at | [address] [facility] | regional pain | | | | [facility] | [facility] [address] | syndrome), lower | | | | [address] | [place], [place] | limb; Gait | | | | [place] for [facility] | [address] | disturbance; Sleep | | | | and Healing, | [phone] | disturbance, | | | | Building | | unspecified; | | | | Floor [place], [place] | | Adjustment reaction | | | | [address] | | | | | | [phone] | | | +--------+---------+ + + + [...] CRPS patients (Loretta Rousseau et al. Katrina Exhibit Preparator Med. 2010;152:152-158) . Bisphosphonate trial. Typically, I [...] of physical activity and social withdrawal Dale Arbaham MD - 09/04/2012 7:45 AM PDT [facility] [...] and a pain drawing which I reviewed. [facility] Brief Pain Inventory: (ten= worst [...] Trial spinal cord stimulator leads 08/02/2012 [facility], Surgeon: Dale Cantu MD Family History [...] The Review of Systems obtained by the [facility] was reviewed. Additional Review of Systems [...] of Pain: 13(1):17-21, 2008). DALE CANTU MD Inside Parts Sales, [facility] Associate Business Analyst, Pain Medicine Professor, Anesthesiology & Perioperative Medicine [...]
--- OUTSIDE RECORDS SUMMARY | ~2020-06-23 | XMS | Encounter Summary ---
Demographics + + + | Address | [address] | | | [place] [address] | + + + | Home Phone [...] Team Providers + +------+ + | Care Nutter Up Name | Role | Phone | + [...] | 09/30/ | Telephone | [facility] Ilene | Ilene Bright, | Phone communication | | 2017 | | Pain Center at | SLITTER CREASER SLOTTER OPERATOR [address] | | | | | [facility] | [place], [place] | | | | | [address] | [address] | | | | | [facility] | [phone] | | | | | and Healing, | | | | | | Building | | | | | | Floor [facility] [place] | | | | | | [address] | | | | | | [phone] | | | +--------+ + + + [...]
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
--- OUTSIDE RECORDS SUMMARY | ~2020-06-23 | XMS | Encounter Summary ---
Demographics + + + | Address | [address] | | | [place] [address] | + + + | Home Phone [...] + +------+ + | Care Manager Of Distribution Name | Role | Phone | + +------+ + | Justo Vazquez MD | PCP | | + +------+ + Encounter Details +--------+ + + + + | Date | Type | Department | Care Team | Description | +--------+ + + + + | 08/30/ | Documentati | Pain Center at [facility] | Jamel Madden G, | | | 2018 | on | [address] | PhD [address] | | | | | Center for Health | [place], [place] | | | | | and Healing, | [address] | | | | | | [phone] | | | | | Floor [place], [place] | | | | | | [address] | | | | | | [phone] | | | +--------+ + + + [...]
--- OUTSIDE RECORDS SUMMARY | ~2020-06-23 | XMS | Encounter Summary ---
Demographics + + + | Address | [address] | | | [place] [address] | + + + | Home Phone [...] Team Providers + +------+ + | Care Paintings Conservator Name | Role | Phone | + [...] CRPS | Janak Martinez MD | [facility] [address] | | | | | (complex | [address] | Pavilion | | | | | regional | [address] | [address] | | | | | pain | Mailstop | [address], | | | | | syndrome), | [address] | Basement | | | | | lower limb | [place], [place] | [place], [place] | | | | | Procedures | [address] | [address] | | | | | [place] BONE &/OR | Phone: | Phone: | | | | | JOINT | [phone] | [phone] | | | | | IMAGING 3 | Fax: | Fax: | | | | | PHASE | [phone] | [phone] | +--------+--------+ + + + + Encounter Details +--------+ + + + + | Date | Type | Department | Care Team | Description | +--------+ + + + + | 02/13/ | Hospital | Nuclear Medicine | | | | 2011 | Encounter | at [facility] [address] | | | | | | [address] | | | | | | [address], | | | | | | [place], | | | | | | [place] [address] | | | | | | [phone] | | | +--------+ + + + [...]
--- OUTSIDE RECORDS SUMMARY | ~2020-06-23 | XMS | Encounter Summary ---
Demographics + + + | Address | [address] | | | [place] [address] [...] + +------+ + | Care Director Of Residential Services Name | Role | Phone | [...] | | | | | extremity | [address] | [address] | | | | | Procedures | Phone: | Phone: | | | | | REQUEST TO | [phone] | [phone] | | | | | SURGERY | Fax: | Fax: | | | | | WRINKLE CHASER | [phone] | [phone] | +--------+---------+ + + + + Encounter Details +--------+---------+ + + + | Date | Type | Department | Care Team | Description | +--------+---------+ + + + | 12/22/ | Office | [facility] Comprehensive | Ilene Bright, | Complex regional | | 2019 | Visit | Pain Center at | MAIL SORTING SUPERVISOR [address] | pain syndrome type 1 | | | | [facility] | [place], [place] | of left lower | | | | [address] | [address] | extremity; S/P | | | | [place] for [facility] | [phone] | insertion of spinal | | | | and Healing, | | cord stimulator | | | | Building | | | | | | Floor [place], [place] | | | | | | [address] | | | | | | [phone] | | | +--------+---------+ + + + [...] fo r your reference. - The [place] farm loan representative met with you and made adjustments to your stimulator. I spoke w ith the farm loan representative and she is happy with your [...] call this prescription into the [facility] in [place]. It was great to see you again, documented in this encounter Progress Notes Ilene Bright, MAIL SORTING SUPERVISOR - 12/22/2018 11:00 AM PSTFormatting of this note might be different fr om the original. [facility] Return Visit Date: 12/22/2018 Chief Complaint Patient presents with Low back pain Pain in left leg History of Present Illness: Tracie Farah is a 28 year old female, whose last appoi ntment at the [facility] was 12/07/2018 following [...] order to tolerate her incision site pain. CUSTOMER SERVICE LEADER Brief Pain Inventory: (ten= worst possible pain [...] Trial spinal cord stimulator leads 08/02/2012 [facility], Surgeon: Janak Riojas MD Cholecystectomy Appendectomy [...] History Social History Narrative Single. Goes to [employer] with a light load. Has been working at [employer], can' t work on [employer]. Has roommates. Allergies Allergen Reactions Morphine [...] [facility] Digestive Health- 2 gallon bowel [...] Abdominal pain Abdominal scar neuroma [facility] CLINICAL PROTOCOL PATIENT (CLNPRO) - [...] and summary of old medical records (source: [facility], [facility] [place] Everywhere), as summarized in the body of [...] taking for her surgical incision. The SCS farm loan representative visited the patient in order to [...] ed by Collin Salomon. Ilene Childs DNP, MAIL SORTING SUPERVISOR-C Adult Pain [facility] [address] [place] [address] mith, Charline Torres MA - 12/22/2018 11:00 [...]
--- OUTSIDE RECORDS SUMMARY | ~2020-06-23 | XMS | Encounter Summary ---
Demographics + + + | Address | [address] | | | [place] [address] | + + + | Home Phone [...] Providers + +------+ + | Care Financial Investment Adviser Name | Role | Phone | + [...] Management | CRPS | Allegra Nieto, | Dlae Martinez MD | | | | | (complex | [place] | [address] | | | | | regional | [place] | [address] | | | | | pain | FAMILY | [employer]stop | | | | | syndrome), | MEDICINE P | [address] | | | | | lower limb | [address] | [place], [place] | | | | | Pain in | [place], | [address] | | | | | joint, lower | [place] [address] | Phone: | | | | | leg | Phone: | [phone] | | | | | Procedures | [phone] | Fax: | | | | | REQUEST TO | Fax: | [phone] | | | | | SURGERY | [phone] | | | | | | BRICK STACKER | | | +--------+--------+ + + + + Encounter Details +--------+ + + + + | Date | Type | Department | Care Team | Description | +--------+ + + + + | 08/02/ | Procedure | Pain Center at [facility] | Dale Cantu, | Procedure; | | 2011 | | [address] | [address] | Injection; Procedure | | | | [facility] | [facility] [address] | | | | | and Healing, | [place], [place] | | | | | [facility] | [address] | | | | | Floor [place], [place] | [phone] | | | | | [address] | | | | | | [phone] | | | +--------+ + + + [...] e might be different from the original. [facility] Patient Instructions - Post Spinal Cord Stimulator Trial Date: 08/02/2012 Name: Tracie Farah Date of : 1990 Procedure Performed: SCS TRIAL LUMBAR [facility] Procedure Provider: Dale Cantu [facility] Procedure Rm If you have any problems you believe are associated with your procedure tonight, Please call the Hospital Truck Driver Heavy, and ask for the Pain Management Consu ltant. If you have problems or questions between 9:00 am and 4:00 pm, Please call the [facility] Nurse Triage Line, . If you go to an Emergency Room, please bring this form with you. DISCHARGE INSTRUCTIONS Call immediately and/or go to the Emergency department if any concerns about wound healing, fever, or chills. Also call for concerns about SCS function. During [facility] open hours, call the [facility] ([phone]), after hours call the skein winding operator at [facility] ([phone]) and ask for t he Adult Pain Service weapons system instrument mechanic. Identify yourself as a Comprehensive Pain Center [...] the wounds, dressing, or SCS function. During AOC PLANS INTELLIGENCE OFFICER o pen hours, call the AOC PLANS INTELLIGENCE OFFICER ([phone]), after hours call the skein winding operator at [facility] ([phone] ) and ask for the Adult Pain Service weapons system instrument mechanic. Identify yourself as my patient with a concer n about postoperative recovery. If there are concerns about the SCS programming, contact t he assisted sales representative from the SCS facility maintenance technician. If the stimulation is not covering your area o f pain, your SCS should be reprogrammed. Do not take any blood thinning medications during the trial. Instructions printed and reviewed with the patient. Copy of instructions given to Ms. Nemo renee. DALE CANTU MD [facility] documented in this [...] and postoperative care instructions. DALE CANTU MD Engine Lathe Set Up Operator Tool, [facility] Adoption Services Manager, Pain Medicine Professor, Anesthesiology & Perioperative Medicine Diana Arroyo RN - 08/02/2012 7:34 AM PDT PRE-SEDATION: Date: August 02, 2012 Tracie Farah [id number] 1990 ALLERGIES: Morphine Previous reaction to Sedation/Analgesia: MEDICATIONS: Current Outpatient Prescriptions Medication HYDROcodone-acetaminophen (NORCO) 10-325 mg Oral Tablet KETOROLAC TROMETHAMINE (TORADOL IM) levonorgestrel (MIRENA) 20 mcg/24 hr Intrauterine IUD LORazepam 1 mg Oral Tablet ondansetron (ZOFRAN) 8 mg Oral Tablet promethazine 25 mg Oral Tablet Meets NPO Guidelines. IV ACCESS: IV in Place IV Site [facility] 22 g @ 0655 BASELINE VS: See Sedation Flow Sheet. Tracie Donaldson [facility] [id number] 1990, presents to clinic for: Procedure: Spinal [...] 0732 - 0733: Midazolam 2 [place] [address]: Fentanyl 25 mcg IV 0740 - 0741: Midazolam 2 mg IV 0742: Procedure started 0743 - 0744: Fentanyl 50 mcg IV 0753-54: Fentanyl 25 mcg IV Lead # 1 placed Lead # 2 placed 0801: Stimulation started. 0829: Pt reports stimulation to usual areas of pain. Leads secured. 0845: Pt returned to [facility] per [facility] in stable condition. IV dc'd. Evelia [...] OPERATIVE NOTE Date: August 02, 2012 Location: [facility] Procedure Room Tracie Farah [id number] :1990, presents to clinic for: PROCEDURE: Spinal Cord Stimuation Trial LEVEL/LATERALITY: midline lumbar PRE-OPERATIVE DIAGNOSIS: 355.71B CRPS (complex regional pain syndrome), lower limb 719.46 Pain in joint, lower leg 781.2Q Gait disturbance POST-OPERATIVE DIAGNOSIS: 355.71B CRPS (complex regional pain syndrome), lower limb 719.46 Pain in joint, lower leg 781.2Q Gait disturbance ATTENDING PHYSICIAN: Dale Cantu MD GENERAL CLAIMS AGENT: Fellow Bear Yost DO ANESTHESIA: sedation delivered [...] sedation. Ms. Farah was escorted to the [facility] Procedure Ro om, where she was positioned Prone on the examination table. TEAM PAUSE: The physician-led pause was conducted, and is documented in the Nursing note. Monitors were placed, including ECG, NIBP and SpO2. The skin was prepared with Chloroprep and sterile drapes were applied. [employer] system was used for this procedure. The company assisted sales representative was theresa knutson for the [...] was transported to the [facility] Comprehensive Pain Center post-procedure recovery area where she made an uneventful recovery. Images were saved, and sent to [employer]. Ms. Farah will have her next appointment [...] about wound healing or SCS function. During [facility] open hours, call the [facility] ([phone]), after h ours call the skein winding operator at [facility] ([phone]) and ask for the Adult Pain Service weapons system instrument mechanic. Identify yourself as my patient with a concern about postoperative recovery. DALE CANTU MD was present for the entire procedure. BEAR YOTS DO documented in this en counter Plan of Treatment Not on filedocumented as of this encounter Procedures + +--------+ + + + | Procedure Name | Priori | Date/Time | Associated Diagnosis | Comments | | | ty | | | | + +--------+ + + + | CA PERCUT IMPLNT | Routin | 08/03/2012 | [...]
--- OUTSIDE RECORDS SUMMARY | ~2020-06-23 | XMS | Encounter Summary ---
Demographics + + + | Address | [address] | | | [place] [address] | + + + | Home Phone [...] Team Providers + +------+ + | Care Primary School Teacher Librarian Name | Role | Phone | + +------+ + | Justo Vazuqez MD | PCP | | + +------+ + Encounter Details +--------+ + + + + | Date | Type | Department | Care Team | Description | +--------+ + + + + | 12/05/ | Procedure | [facility] | | | | 2019 | Pass | [place] [facility] | | | | | | and Healing Surgery | | | | | | Center Admitting | | | | | | Desk Located on the | | | | | | 4th floor [address] | | | | | | [address] [place], | | | | | | [place] [address] | | | +--------+ + + + [...]
--- OUTSIDE RECORDS SUMMARY | ~2020-06-23 | XMS | Encounter Summary ---
Demographics + + + | Address | [address] | | | [place] [address] | + + + | Home Phone [...] Team Providers + +------+ + | Care Observatory Director Name | Role | Phone | [...] 08/11/ | Documentati | KEVIN YANEZ at [facility] | Lab, Gi Procedure | Medical Records | | 2015 | on | [address] | | Review | | | | [address] [facility] for | | | | | | Health and Healing, | | | | | | Building 2 | | | | | | [place], [place] | | | | | | [address] | | | | | | [phone] | | | +--------+ + + + [...]
--- OUTSIDE RECORDS SUMMARY | ~2020-06-23 | XMS | Encounter Summary ---
Demographics + + + | Address | [address] | | | [place] [address] | + + + | Home Phone [...] Team Providers + +------+ + | Care Ambulance Officer Name | Role | Phone | [...] | | | | | Procedures | [place], [place] | | | | | | MR | [id number] | | | | | | ENTEROGRAPHY [...] | | | | | Procedures | [place], [place] | | | | | | MR | [id number] | | | | | | ENTEROGRAPHY [...] | 2017 | Encounter | Services at [facility] | [address] | | | | | [address] | [place], [place] | | | | | [facility] [place] | [address] | | | | | [facility] | [phone] | | | | | [place], [place] | | | | | | [address] | | | | | | [phone] | | | +--------+ + + + [...]
--- OUTSIDE RECORDS SUMMARY | ~2020-06-23 | XMS | Encounter Summary ---
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 Surgery check-in location: [facility] Day Stay - [place] [facility], 4th floor Surgery Check in Time: The [...] it is after office hours, call the [facility] metalizing machine operator automatic at [phone] and ask them to page him or h er. documented in this encounter Progress Notes Catie Smart NP - 11/27/2018 2:05 PM PST PREOPERATIVE CONSULT NOTE Author: Catie Smart NP Referring Physician: Alex Sanchez MD Primary Care Provider: Justo Vazquez MD Reason for Consult: Preoperative evaluation and risk assessment Proposed Procedure/Date: implant SCS; 12/05/2018 Proposed Procedure Location: [facility] HISTORY OF PRESENT ILLNESS: Tracie Farah [...] renal failure no electrolyte abnormalities no dialysis Urology/Plastic Frame Inserter: Interstitial cystitis LMP: irreg bleeding, ~11/14/2018, IUD [...] oral recon soln Take as directed by [facility] LibreDigital [facility]ravo[employer] [facility]- 2 gallon bowel prep polyethylene [...] patient is a lso currently scheduled at [facility] [place] and is meeting inclusion criteria [...] to this patient's care. Catie Smart NP [facility] PBB PREOPERATIVE MEDICINE CLINIC AT [facility] 4TH FLOOR [address] [facility] [address] I advised the patient regarding NPO [...]
--- OUTSIDE RECORDS SUMMARY | ~2020-06-23 | XMS | Encounter Summary ---
Demographics + + + | Address | [address] | | | [place] [address] | + + + | Home Phone [...] Providers + +------+ + | Care Family Life Counselor Name | Role | Phone | [...] | pain, | [address] | [address] | | | | | unspecified | [address] | [address] | | | | | abdominal | Rd | [place], [place] | | | | | location | [facility] [place] | [address] | | | | | Pain of | [address] | Phone: | | | | | upper | | [phone] | | | | | abdomen | | Fax: | | | | | Complex | | [phone] | | | | | regional | [...] | | | | | | | BLANCHING MACHINE OPERATOR | | | +--------+---------+ + + + + Reason for Visit + + + | Reason | Comments | + + + | Procedure | | + + + Encounter Details +--------+ + + + + | Date | Type | Department | Care Team | Description | +--------+ + + + + | 08/30/ | Telephone | [facility] | Ilene Bright, | Procedure | | 2017 | | Pain Center at | DRY CELL AND BATTERY ASSEMBLER [address] | | | | | [facility] | [place], [place] | | | | | [address] | [address] | | | | | [facility] | [phone] | | | | | and Healing, | | | | | | Building | | | | | | Floor [place], [place] | | | | | | [address] | | | | | | [phone] | | | +--------+ + + + [...]
--- OUTSIDE RECORDS SUMMARY | ~2020-06-23 | XMS | Encounter Summary ---
Demographics + + + | Address | [address] | | | [place] [address] | + + + | Home Phone [...] Team Providers + +------+ + | Care Unishear Operator Name | Role | Phone | [...] | | | | | Procedures | [place], [place] | | | | | | MR | [id number] | | | | | | ENTEROGRAPHY [...] | | | | | Procedures | [place], [place] | | | | | | MR | [id number] | | | | | | ENTEROGRAPHY [...] | 2017 | Encounter | Services at [facility] | [address] | | | | | [address] | [place], [place] | | | | | [address] | [address] | | | | | [facility] | [phone] | | | | | [place], [place] | | | | | | [address] | | | | | | [phone] | | | +--------+ + + + [...]
--- OUTSIDE RECORDS SUMMARY | ~2020-06-23 | XMS | Encounter Summary ---
Demographics + + + | Address | [address] | | | [place] [address] | + + + | Home Phone [...] Team Providers + +------+ + | Care Moving Picture Producer Name | Role | Phone | [...] Encounter | [address] | BI DATA ARCHITECT [address] | | | | | [place] for [facility] | [address] | | | | | and Healing, | [place] [address] | | | | | | [phone] | | | | | Floor [place], [place] | | | | | | [address] | | | | | | [phone] | | | +--------+ + + + [...]
--- OUTSIDE RECORDS SUMMARY | ~2020-06-23 | XMS | Encounter Summary ---
Demographics + + + | Address | [address] | | | [place] [address] | + + + | Home Phone [...] + +------+ + | Care Critical Care Unit Manager Name | Role | Phone | + +------+ + | Justo Vazquez MD | PCP | | + +------+ + Encounter Details +--------+ + + + + | Date | Type | Department | Care Team | Description | +--------+ + + + + | 09/20/ | Telephone | [facility] | Ilene Bright, | | | 2017 | | Pain Center at | PACKAGING ASSEMBLER [address] | | | | | [facility] | [place], [place] | | | | | [address] | [address] | | | | | [place] for [facility] | [phone] | | | | | and Healing, | | | | | | | | | | | | Floor [place], [place] | | | | | | [address] | | | | | | [phone] | | | +--------+ + + + [...]
--- OUTSIDE RECORDS SUMMARY | ~2020-06-23 | XMS | Encounter Summary ---
Demographics + + + | Address | [address] | | | [place] [address] | + + + | Home Phone [...] Providers + +------+ + | Care Fine Dining Server Name | Role | Phone | [...] | Pain Center at | [address] | | | | | [facility] | [address] [place] [address] | | | | | [address] | [place], [place] | | | | | [facility] | [address] | | | | | and Healing, | [phone] | | | | | [facility] | | | | | | Floor [place], [place] | | | | | | [address] | | | | | | [phone] | | | +--------+ + + + [...]
--- OUTSIDE RECORDS SUMMARY | ~2020-06-23 | XMS | Encounter Summary ---
Demographics + + + | Address | [address] | | | [place] [address] | + + + | Home Phone [...] Team Providers + +------+ + | Care Buck Swamper Name | Role | Phone | + [...] | | [address] | [place], [place] | | | | | [place] for [facility] | [address] | | | | | and Healing, | [phone] | | | | | | | | | | | Floor [place], [place] | | | | | | [address] | | | | | | [phone] | | | +--------+ + + + [...]
--- OUTSIDE RECORDS SUMMARY | ~2020-06-23 | XMS | Encounter Summary ---
Demographics + + + | Address | [address] | | | [place] [address] | + + + | Home Phone [...] Providers + +------+ + | Care Marine Equipment Research Engineer Name | Role | Phone [...] + + | 07/14/ | Telephone | [facility] | Ilene Bright, | Lab Order | | 2016 | | Pain Center at | FOOD SERVICE ASSISTANT [address] | | | | | [facility] | [place], [place] | | | | | [address] | [address] | | | | | [facility] | [phone] | | | | | and Healing, | | | | | | Building | | | | | | [place], [place] | | | | | | [address] | | | | | | [phone] | | | +--------+ + + + [...]
--- OUTSIDE RECORDS SUMMARY | ~2020-06-23 | XMS | Encounter Summary ---
Demographics + + + | Address | [address] | | | [place] [address] | + + + | Home Phone [...] Providers + +------+ + | Care Ticket Counter Name | Role | Phone | [...] | | Pain Center at | ,PhD [address] [facility] | follow-up | | | | [facility] | [address] | | | | | [address] | [place], [place] | | | | | [facility] | [address] | | | | | and [place], | [phone] | | | | | Building | | | | | | Floor [place], [place] | | | | | | [address] | | | | | | [phone] | | | +--------+ + + + [...]
--- OUTSIDE RECORDS SUMMARY | ~2020-06-23 | XMS | Encounter Summary ---
[...] Providers + +------+ + | Care House Calls Nurse Name | Role | Phone | [...] | | | | regional | ,PhD [address] | | | | | | pain | [address] | | | | | | syndrome | [address] | | | | | | type 1 of | Rd | | | | | | left lower | [place], [place] | | | | | | extremity | [address] | | | | | | Other | Phone: | | | | | | chronic pain | [phone] | | | | | | S/P | Fax: | | | | | | insertion of | [phone] | | | | | | spinal [...] | | | | regional | ,PhD 4418 | | | | | | pain | [address] | | | | | | syndrome | [address] | | | | | | type 1 of | Rd | | | | | | left lower | [place], [place] | | | | | | extremity | [address] | | | | | | Other | Phone: | | | | | | chronic pain | [phone] | | | | | | S/P | Fax: | | | | | | insertion of | [phone] | | | | | | spinal [...] + | 04/26/ | Telephone | [facility] Comprehensive | Alex Sanchez, | | | 2019 | | Pain Center at | ,PhD [address] | | | | | [facility] | [address] | | | | | [address] | [place], [place] | | | | | [facility] | [address] | | | | | and Healing, | [phone] | | | | | | | | | | | Floor [place], [place] | | | | | | [address] | | | | | | [phone] | | | +--------+ + + + [...]
--- OUTSIDE RECORDS SUMMARY | ~2020-06-23 | XMS | Encounter Summary ---
Demographics + + + | Address | [address] | | | [place] [address] [...] Providers + +------+ + | Care Engraver Jewelry Name | Role | Phone | + [...] 2017 | | Pain Center at | CASH APPLICATION CLERK [address] | | | | | [facility] | [place], [place] | | | | | [address] | [address] | | | | | [facility] | [phone] | | | | | and Healing, | | | | | | Building | | | | | | [facility] [place] | | | | | | [address] | | | | | | [phone] | | | +--------+ + + + [...]
--- OUTSIDE RECORDS SUMMARY | ~2020-06-23 | XMS | Encounter Summary ---
Demographics + + + | Address | [address] | | | [place] [address] | + + + | Home Phone [...] Providers + +------+ + | Care Corporate Meeting Planner Name | Role | Phone | [...] | CRPS | Janak Martinez MD | [facility] [address] | | | | | (complex | [address] | Pavilion | | | | | regional | [address] | [address] | | | | | pain | [address] | [address], | | | | | syndrome), | [id number] | Basement | | | | | lower limb | [place], [place] | [place], [place] | | | | | Procedures | [address] | [address] | | | | | [place] BONE &/[place] | Phone: | Phone: | | | | | JOINT | [phone] | [phone] | | | | | IMAGING 3 | Fax: | Fax: | | | | | PHASE | [phone] | [phone] | +--------+--------+ + + + + Encounter Details +--------+ + + + + | Date | Type | Department | Care Team | Description | +--------+ + + + + | 02/13/ | Hospital | Nuclear Medicine | | | | 2011 | Encounter | at [facility] [address] | | | | | | [address] | | | | | | [address], | | | | | | [place], | | | | | | [place] [address] | | | | | | [phone] | | | +--------+ + + + [...] Homer | | | | | | Jermeias 02/15/2012 9:11 | | | | | [...]
--- OUTSIDE RECORDS SUMMARY | ~2020-06-23 | XMS | Encounter Summary ---
Demographics + + + | Address | [address] | | | [place] [address] | + + + | Home Phone [...] Providers + +------+ + | Care Instructor Private Name | Role | Phone | + +------+ + | Justo Vazquez MD | PCP | | + +------+ + Encounter Details +--------+ + + + + | Date | Type | Department | Care Team | Description | +--------+ + + + + | 08/03/ | Telephone | [facility] | Alex Sanchez, | | | 2018 | | Pain Center at | ,PhD [address] | | | | | [facility] | [address] | | | | | [address] | [place], [place] | | | | | [place] [facility] | [address] | | | | | and Healing, | [phone] | | | | | | | | | | | Floor [place], [place] | | | | | | [address] | | | | | | [phone] | | | +--------+ + + + [...]
--- OUTSIDE RECORDS SUMMARY | ~2020-06-23 | XMS | Encounter Summary ---
Demographics + + + | Address | [address] | | | [place] [address] | + + + | Home Phone [...] Team Providers + +------+ + | Care Hims Coder Name | Role | Phone | [...] | Diagnoses | Beulah | Edu Pt Industrial Technology Education Teacher | | | | Therapy | CRPS | Janak Martinez MD | [address] | | | | | (complex | [address] | | | | | regional | [address] | Mailcode: | | | | | pain | Mailstop | [facility] | | | | | syndrome), | [id number] | for Health | | | | | lower limb | [place], [place] | and Healing, | | | | | Gait | [address] | Building 1 | | | | | disturbance | Phone: | [place], [place] | | | | | Muscle pain | [phone] | [address] | | | | | Procedures | Fax: | Phone: | | | | | PHYSICAL | [phone] | [phone] | | | | | THERAPY | [...] regional pain | | | | [facility] | [place] [address] | syndrome), lower | | | | [address] | [phone] | limb (Primary Dx) | | | | Center for Health | | | | | | and Healing, | | | | | | Building 1, 1st | | | | | | Floor [place], [place] | | | | | | [address] | | | | | | [phone] | | | +--------+---------+ + + + [...] might be different f rom the original. [id number] BRODY FARAH Date of : 1990 Start of care: 02/14/2012 Date of onset: 02/14/2012 Referring/Attending Practitioner: Janak Riojas MD . Primary/Referral Diagnosis/ICD-9: 355.71B CRPS (complex regional pain syndrome), lower limb Insurance: Payor: [facility] Plan: BCBS OUT OF STATE Product Type: PP O Service period from: 02/14/2012 to: 08/12/2012 Number visits used/authorized: 05/25 [facility] PHYSICAL THERAPY PROGRESS NOTE [...] any change in their status. Guillermo Sanon [facility] [place] [facility] Outpatient Rehabilitation Services Mailcode: Ch3p [address] [facility], 1st Floor [facility] [address] documented in this encounter [...]
--- OUTSIDE RECORDS SUMMARY | ~2020-06-23 | XMS | Encounter Summary ---
Demographics + + + | Address | [address] | | | [place] [address] | + + + | Home Phone [...] Providers + +------+ + | Care Research Hydrologist Name | Role | Phone | + [...] | | | | | Procedures | [place], [place] | | | | | | MR | [id number] | | | | | | ENTEROGRAPHY [...] | 2017 | Visit | Center at [facility] [address] | | unspecified location | | | | [address] [facility] | | (Primary Dx) | | | | for Health and | | | | | | Healing, Building 2 | | | | | | [place], [place] | | | | | | [address] | | | | | | [phone] | | | +--------+---------+ + + + [...] heavy metal poisoning 2) MR enterography - [phone] to schedule 3) can increase miralax to 6 times per day Return to clinic in 3 months Please feel free to call our clinic with any questions. [phone] Kenny Gaspar MD Fellow, Division of Gastroenterology [...] n their attached note. Celia Lin MD Doulastrawhat sizer Division of Gastroenterology & Hepatology [facility] Kenny Dodge Md - 2016 3:15 PM PST Gastroenterology Clinic Follow-Up Note 01/11/2017 CC/ID: Tracie Farah is a 26 F PMHx depression, complex regional pain syndrome(CRPS ) here for follow-up of n/v, abdominal pain INTERVAL HISTORY: Previously seen by Dr. Carbajal 08/10/16 - 10/2015 - hospitalized at [facility] for nausea/vomiting/pain -> [facility] -> CT A/P [...] Note | + + | Service Account, [employer] Res In Interface - 02/01/2017 3:50 PM [...]
--- OUTSIDE RECORDS SUMMARY | ~2020-06-23 | XMS | Encounter Summary ---
Demographics + + + | Address | [address] | | | [place] [address] | + + + | Home Phone [...] | CRPS | Dale Martinez MD | [facility] [address] | | | | | (complex | [address] | [address] | | | | | regional | [address] | [address] | | | | | pain | Mailstop | [address], | | | | | syndrome), | [id number] | Basement | | | | | lower limb | [place], [place] | [place], [place] | | | | | Procedures | [address] | [address] | | | | | [place] BONE &/[place] | Phone: | Phone: | | | | | JOINT | [phone] | [phone] | | | | | IMAGING 3 | Fax: | Fax: | | | | | PHASE | [phone] | [phone] | +--------+--------+ + + + + Consult [...] | | | regional | [place] | [address] | | | | | pain | FAMILY | Mailstop | | | | | syndrome), | MEDICINE P | [id number] | | | | | lower limb | [address] | [place], [place] | | | | | Gait | [place], | [address] | | | | | disturbance | [place] [address] | Phone: | | | | | Muscle pain | Phone: | [phone] | | | | | Procedures | [phone] | Fax: | | | | | REQUEST TO | Fax: | [phone] | | | | | SURGERY | [phone] | | | | | | CROSSCUTTER ROLLED GLASS | | | +--------+--------+ + + + + Consultation (Routine) +--------+--------+ + + + + | Status | Reason | Specialty | Diagnoses / | Referred By | Referred To | | | | | Procedures | Contact | Contact | +--------+--------+ + + + + | Closed | | Psychology / | Diagnoses | Beulah, | Cheese Packer Psych | | | | Pain | CRPS | Dale Martinez MD | [facility] [address] | | | | Management | (complex | [address] | | | | | regional | [address] | Center for | | | | | pain | Mailstop | Health and | | | | | syndrome), | [id number] | Healing, | | | | | lower limb | [place], [place] | Building | | | | | Gait | [address] | 1,15th Floor | | | | | disturbance | Phone: | [place], [place] | | | | | Muscle pain | [phone] | [address] | | | | | Procedures | Fax: | Phone: | | | | | CONSULT TO | [phone] | [phone] | | | | | PAIN CENTER | | Fax: | | | | | | | [phone] | +--------+--------+ + + + + Physical Therapy (Routine) +--------+--------+ + + + + | Status | Reason | Specialty | Diagnoses / | Referred By | Referred To | | | | | Procedures | Contact | Contact | +--------+--------+ + + + + | Closed | | Physical | Diagnoses | Beulah, | Edu Pt Cheese Packer | | | | Therapy | CRPS | Dale Martinez MD | [facility] [address] | | | | | (complex | [address] | | | | | regional | [address] | Mailcode: | | | | | pain | Mailstop | [facility] | | | | | syndrome), | [id number] | for Health | | | | | lower limb | [place], [place] | and Healing, | | | | | Gait | [address] | [facility] 1 | | | | | disturbance | Phone: | [place], [place] | | | | | Muscle pain | [phone] | [address] | | | | | Procedures | Fax: | Phone: | | | | | PHYSICAL | [phone] | [phone] | | | | | THERAPY | [...] | | | 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 | FAMILY | Mailstop | | | | | of lower | MEDICINE P | [address] | | | | | limb | [address] | [place], [place] | | | | | | [place], | [address] | | | | | | [place] [address] | Phone: | | | | | | Phone: | [phone] | | | | | | [phone] | Fax: | | | | | | Fax: | [phone] | | | | | | [phone] | | +--------+--------+ + + + + Encounter Details +--------+---------+ + + + | Date | Type | Department | Care Team | Description | +--------+---------+ + + + | 02/13/ | Office | [facility] | Dale Cantu, | CRPS (complex | | 2011 | Visit | Pain Center at | MD [address] | regional pain | | | | [facility] | [facility] [address] | syndrome), lower | | | | [address] | [place], [place] | limb; Gait | | | | Center for Health | [address] | disturbance; Muscle | | | | and Healing, | [phone] | pain; Adjustment | | | | | | reaction | | | | Floor [place], [place] | | | | | | [address] | | | | | | [phone] | | | +--------+---------+ + + + [...] Diagnostic evaluation: Records from CRPS program at [facility]. 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 [...] employed by the psychologists here at the [facility]. 2.2 Physical therapy can reduce pain and improve functional status. Suggest Guillermo Sanon . 3. Medication suggestions: 3.1 Continue titrating up duloxetine. 3.2 As for any patient being managed with chronic opioids, we do recommend that the patien t have a signed [facility] Material Risk Notice, agree to whatever [...] sintia sure this is scheduled with the Manager Of Learning. Please bring a grab driver with you. We may give you medications that make you drowsy or otherw ise unsafe to drive. If you do not have a grab driver, we will not be able to [...] PLEASE CONTACT THE COMPREHENSIVE PAIN CENTER AT [phone]) FOR QUESTIONS OR IF YOU NEED TO CANCEL YOUR APPOINTMENT. [facility] Comprehensive Pain Center documented in [...] pain management consultation by BJORN Mi [place] [facility] MEDICINE [address] [place] [address] Reason for visit Chief Complaint Patient presents with Pain in left leg Ankle pain left History of Present Illness: Tracie Farah is a 21 year old female with pain locate d in left lower extremity. She has been diagnosed with CRPS. She is referred to [facility] for consultation regarding this [...] by several orthopedic surgeons, Dr. Charles in [place], physical therapy, Occupational Therapy. Diagnostic and radiologic [...] entin, pregabalin, topiramate, tramadol, multiple opioids. Current [place] about 6-8/day. St arting duloxetine, at 30 mg/day. She feels that the most effective medication treatments ar e or have been opioids. As a result of her pain, Ms. Farah notes multiple changes in her life, including: "I don 't have a life, can't work, can't go to school." Poor mood, sleep, activity. Using crutche s recently because of pain flare. 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 Goes to [email or web address] college with a light load. Has been working at [employer], can' t work on [employer]. Has roommates. Current Medication List 02/14/12 9:50 [...] Anaphylaxis As part of today's visit the [facility] new patient questionnaire [...] rambo, the pediatric inpatient pain program at [facility], and two attempted lumbar sympathetic blocks. Last [...] CRPS patients (Loretta Rousseau, et al. Katrina Facility Rehab Director Med. 2010;152: 152-158). Other treatment options for [...] evaluation: [facility] Suggest three ph ase [...] that the patien t have a signed [facility] Material Risk Notice, agree to whatever [...] her PCP, BJORN Villanueva. DALE CANTU MD [address], [facility] Hearing Specialist, Pain Medicine Professor, Anesthesiology & Perioperative [...] | + +---------+ + + | [facility] DEPARTMENT OF | | | [...]
--- OUTSIDE RECORDS SUMMARY | ~2020-06-23 | XMS | Encounter Summary ---
Demographics + + + | Address | [address] | | | [place] [address] | + + + | Home Phone [...] Team Providers + +------+ + | Care Keno Clerk Name | Role | Phone | [...] | 2017 | | Center at [facility] [address] | | | | | | [address] [facility] | | | | | | for Health and | | | | | | Healing, Building 2 | | | | | | [place], [place] | | | | | | [address] | | | | | | [phone] | | | +--------+--------+ + + + [...]
--- OUTSIDE RECORDS SUMMARY | ~2020-06-23 | XMS | Encounter Summary ---
Demographics + + + | Address | [address] | | | [place] [address] | + + + | Home Phone [...] Providers + +------+ + | Care Television Cable Installer Name | Role | Phone | [...] | | | | [address] [place] | [facility] [place] | | | | | for Health and | [address] | | | | | Healing, Building 2 | [phone] | | | | | [place], [place] | | | | | | [address] | | | | | | [phone] | | | +--------+ + + + [...]
--- OUTSIDE RECORDS SUMMARY | ~2020-06-23 | XMS | Encounter Summary ---
Demographics + + + | Address | [address] | | | [place] [address] | + + + | Home Phone [...] + +------+ + | Care Animal Caretaker Supervisor Name | Role | Phone | [...] | | | | | [address] [place] | [address] | | | | | [facility] Health and | [place], [place] | | | | | [facility] 2 | [address] | | | | | [place], [place] | [phone] | | | | | [address] | | | | | | [phone] | | | +--------+ + + + [...]
--- OUTSIDE RECORDS SUMMARY | ~2020-06-23 | XMS | Encounter Summary ---
Demographics + + + | Address | [address] | | | [place] [address] [...] Team Providers + +------+ + | Care Guard Range Name | Role | Phone | + [...] | syndrome | [address] | [facility] | | | | | type 1 of | [address] | [address] [place], | | | | | left lower | [place], [place] | [place] | | | | | extremity | [address] | [address] | | | | | Procedures | Phone: | Phone: | | | | | REQUEST TO | [phone] | [phone] | | | | | SURGERY | Fax: | Fax: | | | | | MARKET REPORTER | [phone] | [phone] | +--------+---------+ + + + + Encounter Details +--------+---------+ + + + | Date | Type | Department | Care Team | Description | +--------+---------+ + + + | 12/07/ | Office | [facility] Comprehensive | Eulogio | Complex regional | | 2019 | Visit | Pain Center at | MD Irene [address] | pain syndrome type 1 | | | | [facility] | [address] [place], | of left lower | | | | [address] | [place] [address] | extremity (Primary | | | | [facility] | [phone] | Dx); S/P insertion | | | | and Healing, | | of spinal cord | | | | Building , | | stimulator | | | | Floor [place], [place] | | | | | | [address] | | | | | | [phone] | | | +--------+---------+ + + + [...] MD - 12/07/2018 9:10 AM PST [facility] Return Visit Date: 12/07/2018 Chief Complaint Patient presents with Back pain Pain in left leg History of Present Illness: Tracie Farah is a 28 year old female, whose last appoi ntment at the [facility] was December 05, 2018, for a procedure [...] her 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 TEACHERS AIDE Brief Pain Inventory: (ten= worst possible pain [...] Hemroidectomy Trial spinal cord stimulator leads 08/02/2012 [facility], Surgeon: Janak Riojas MD Cholecystectomy [...] History Social History Narrative Single. Goes to [employer] with a light load. Has been working at [employer], can' t work on [employer]. Has roommates. Allergies Allergen Reactions Morphine Anaphylaxis [...] and summary of old medical records (source: [employer]), as summarized in the body of the [...] present for the encounter. Irene Krishnan MD [facility] COMPREHENSIVE PAIN CENTER AT [place] [address] [facility], 4th Floor Mail Code: [address] [id number] documented in thi s encounter Plan of Treatment Not on filedocumented as of this encounter Visit Diagnoses + + | Diagnosis | + + | Complex regional pain syndrome type 1 of left lower extremity - Primary | + + | S/P insertion of spinal cord stimulator | + + documented in this encounter
--- OUTSIDE RECORDS SUMMARY | ~2020-06-23 | XMS | Encounter Summary ---
Demographics + + + | Address | [address] | | | [place] [address] | + + + | Home Phone [...] Team Providers + +------+ + | Care Treatment Technician Name | Role | Phone [...] Oliveira | | 2011 | IP | [address] | | House - Approved | | | | Giuliana Maldonado [place], | | | | | | [place] [address] | | | +--------+ + + + [...]
--- OUTSIDE RECORDS SUMMARY | ~2020-06-23 | XMS | Encounter Summary ---
[...] Providers + +------+ + | Care Surgical Nurse Practitioner Name | Role | Phone [...] 2016 | | Pain Center at | RESEARCH RN SPEC [address] | | | | | [facility] | [place], [place] | | | | | [address] | [address] | | | | | [facility] | [phone] | | | | | and Healing, | | | | | | [facility] | | | | | | [place], [place] | | | | | | [address] | | | | | | [phone] | | | +--------+ + + + [...]
--- OUTSIDE RECORDS SUMMARY | ~2020-06-23 | XMS | Encounter Summary ---
Demographics + + + | Address | [address] | | | [place] [address] | + + + | Home Phone [...] | | | regional | [place] | [address] | | | | | pain | FAMILY | Mailstop | | | | | syndrome), | MEDICINE P | [address] | | | | | lower limb | [address] | [place], [place] | | | | | Gait | [place], | [address] | | | | | disturbance | [place] [address] | Phone: | | | | | Muscle pain | Phone: | [phone] | | | | | Procedures | [phone] | Fax: | | | | | REQUEST TO | Fax: | [phone] | | | | | SURGERY | [phone] | | | | | | BOARD OF DIRECTORS | | | +--------+--------+ + + + + Encounter Details +--------+ + + + + | Date | Type | Department | Care Team | Description | +--------+ + + + + | 03/01/ | Procedure | Pain Center at [facility] | Dale Cantu, | Foot pain (left); | | 2011 | | [address] | [address] | Procedure | | | | Center for Health | [address] [address] | | | | | and Healing, | [place], [place] | | | | | [facility] | [address] | | | | | Floor [place], [place] | [phone] | | | | | [address] | | | | | | [phone] | | | +--------+ + + + [...] migh t be different from the original. [facility] Patient Instructions - Post Interventional Procedure Date: 03/01/2012 Name: Tracie Farah Date of : 1990 Procedure Performed: LUMBAR SYMPATHETIC BLOCK. Procedure Provider: Dale Cantu If you have any problems you believe are associated with your procedure tonight, Please call the Hospital Law Enforcement Instructor, and ask for the Pain Management Consu ltant. If you have problems or questions between 9:00 am and 4:00 pm, Please call the [facility] Nurse Triage [...] the larry ent. LAKEISHA HERRING MD [facility] documented in this encounter Progress Notes Dale Cantu MD - 03/01/2012 2:21 PM PDTI was present for the entire procedure (lumbar sympathetic block) and all bocanegra elements of this visit. I reviewed the documentation of the other LAND SURVEYOR MANAGER providers and concur with Dr. Herring's [...] benefit from multidisciplinary treatment. DALE CANTU MD Sander Machine, [facility] High Man, Pain Medicine Professor, Anesthesiology & Perioperative Medicine NAEiDiana scott RN - 03/01/2012 1:35 PM PDT PRE-SEDATION: Date: March 01, 2012 Tracie Farah [id number] 1990 ALLERGIES: Morphine Previous reaction to Sedation/Analgesia: MEDICATIONS: Current Outpatient Prescriptions Medication DULoxetine (CYMBALTA) 30 mg Oral Capsule, Delayed Release(E.C.) HYDROcodone-acetaminophen (NORCO) 10-325 mg Oral Tablet levonorgestrel (MIRENA) 20 mcg/24 hr Intrauterine IUD LORazepam 1 mg Oral Tablet promethazine 25 mg Oral Tablet Meets NPO Guidelines. IV ACCESS: IV in Place IV Start Time 53915, 22g, DRH BASELINE VS: See Sedation Flow Sheet. Tracie Farah [id number] 1990, presents to clinic for: Procedure: Lumbar [...] ml. 1344: Procedure complete. Pt returned to des arc 1 per man in stable condiotion. IV [...] OPERATIVE NOTE Date: March 01, 2012 Location: [facility] Procedure Room Tracie Donaldson [facility] [id number] :1990, presents to clinic for: PROCEDURE: Lumbar sympathetic block LEVEL/LATERALITY: left L3 PRE-OPERATIVE DIAGNOSIS: 355.71B CRPS (complex regional pain syndrome), lower limb 719.46 Pain in joint, lower leg POST-OPERATIVE DIAGNOSIS: 355.71B CRPS (complex regional pain syndrome), lower limb 719.46 Pain in joint, lower leg ATTENDING PHYSICIAN: Dale Cantu RESIDENTIAL DESIGNER: Fellow Lakeisha Herring MD ANESTHESIA: sedation delivered [...] Ms. Farah was escorted to the [facility] Procedure Ro om, where she was positioned [...] compromise. Ms. Farah was transported to the [facility] Comprehensive Pain Center post-procedure recovery area [...] block. Images were saved, and sent to [employer]. Ms. Farah will have her next appointment [...]
--- OUTSIDE RECORDS SUMMARY | ~2020-06-23 | XMS | Encounter Summary ---
Demographics + + + | Address | [address] | | | [place] [address] | + + + | Home Phone [...] Providers + +------+ + | Care Package Lift Operator Name | Role | Phone | [...] Medical Records | | 2017 | | [facility] at [facility] [address] | MD Melissa | Review | | | | [address] [facility] | | | | | | for Health and | | | | | | [facility] 2 | | | | | | [place], [place] | | | | | | [address] | | | | | | [phone] | | | +--------+ + + + [...]
--- OUTSIDE RECORDS SUMMARY | ~2020-06-23 | XMS | Encounter Summary ---
Demographics + + + | Address | [address] | | | [place] [address] | + + + | Home Phone [...] Providers + +------+ + | Care Payroll Accounting Specialist Name | Role | Phone | [...] | | | regional | [place] | [address] | | | | | pain | FAMILY | [facility] | | | | | syndrome), | MEDICINE P | [address] | | | | | lower limb | [address] | [place], [place] | | | | | Pain in | [place], | [address] | | | | | joint, lower | [place] [address] | Phone: | | | | | leg | Phone: | [phone] | | | | | Procedures | [phone] | Fax: | | | | | REQUEST TO | Fax: | [phone] | | | | | SURGERY | [phone] | | | | | | BAR MACHINE OPERATOR MULTIPLE SPINDLE | | | +--------+--------+ + + + [...] | | | sympathetic | [place] | [address]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 | FAMILY | [facility] | | | | | of lower | MEDICINE P | [id number] | | | | | limb | [address] | [place], [place] | | | | | | [place], | [address] | | | | | | [place] [address] | Phone: | | | | | | Phone: | [phone] | | | | | | [phone] | Fax: | | | | | | Fax: | [phone] | | | | | | [phone] | | +--------+--------+ + + + + Encounter Details +--------+---------+ + + + | Date | Type | Department | Care Team | Description | +--------+---------+ + + + | 06/06/ | Office | [facility] Comprehensive | Dale Cantu, | CRPS (complex | | 2011 | Visit | Pain Center at | MD [address] [facility] | regional pain | | | | [facility] | [facility] [id number] | syndrome), lower | | | | [address] | [place], [place] | limb; Pain in joint, | | | | [facility] | [address] | lower leg | | | | and Healing, | [phone] | | | | | | | | | | | Floor [place], [place] | | | | | | [address] | | | | | | [phone] | | | +--------+---------+ + + + [...] make sure this is scheduled with the Civil Manager. Please bring a wedding transportation driver with you. We may give you medications that make you drowsy or otherw ise unsafe to drive. If you do not have a wedding transportation driver, we will not be able to [...] PLEASE CONTACT THE COMPREHENSIVE PAIN CENTER AT [phone] ([phone]) FOR QUESTIONS OR IF YOU NEED TO CANCEL YOUR APPOINTMENT. [facility] Comprehensive Pain Center documented [...] not signed. Given information. DALE CANTU MD Commercial Administrator, [facility] Oral And Maxillofacial Surgery, Pain Medicine Professor, Anesthesiology & Perioperative Medicine ollHomer manriquez MD - 06/06/2012 11:17 AM PDT [facility] Comprehensive Pain Center [...] and a pain drawing which I reviewed. CABLE MAINTAINER Brief Pain Inventory: (ten= worst possible pain [...] The Review of Systems obtained by the UPPER CUTTER OUT was reviewed. Additional Review of Systems: Bones, [...] female who is following up with Dr. aDle Cantu at the [facility] today for left foot CRPS [...] MD Pain Medicine Fellow [facility] Evelia Parsons - 11:07 AM PDTCMA History: [...]
--- OUTSIDE RECORDS SUMMARY | ~2020-06-23 | XMS | Encounter Summary ---
Demographics + + + | Address | [address] | | | [place] [address] | + + + | Home Phone [...] Providers + +------+ + | Care Manager Animation Name | Role | Phone | + [...] + + | 09/14/ | Telephone | [facility] [place] | Alex Sanchez, | Education procedure | | 2018 | | Pain Center at | ,PhD [address] | (preprocedure | | | | [facility] | [address] | education [facility]) | | | | [address] | [place], [place] | | | | | [facility] | [address] | | | | | and Healing, | [phone] | | | | | | | | | | | Floor [place], [place] | | | | | | [address] | | | | | | [phone] | | | +--------+ + + + [...]
[~2020-06-23 16:56] MED LIST changes: +WELLBUTRIN SR200 MG PO
--- OUTSIDE RECORDS SUMMARY | 2020-06-23 16:58 | XMS ---
PreManage Notification: BRODY LINCOLN Security Fabric Worker Events No recent Security Events currently on file CRITERIA MET - Group Notification - 6 ED Visits in 6 Months - [facility] - Has Care Guidelines - PDMP - [facility] - 2 Visits in 30 Days CARE PROVIDERS MARCELINO PERRY Internal Medicine Current PHONE: [phone] Aron Hannah Anesthesiology: Pain Medicine 07/18/2018-Current PHONE: Unknown Guidelines Source: [facility] Guidelines Date: 08/22/2019 Care Recommendation: PATIENT HAS HISTORY COMPLEX REEGIONAL PAIN SYNDROME WELL CYCLICAL ABDOMINAL PAIN/NAUSEA/VOMITING.\T\nbsp; UNDER TREATMENT WITH ARON HANNAH MD PHD PAIN MANAGMENT [facility].\T\nbsp; FOLLOW THIS REGIMEN WHEN PRESENTING TO ED FOR RESOLUTION OF SYMPTOMS: *HYDRATION IV *HYDROMORPHONE 1MG IV * KETOROLAC 30 MG IV *PROMETHAZINE 25MG IV Additional care guidelines exist for the following facilities: [facility] ( 05/21/2019 ) Care History Medical/Surgical 2020 [facility] - PATIENT HAS A CONSULT WITH DR TRUJILLO ON 06/05/2020. 03/06/2020 [facility] Patient has scheduled follow up with Dr. Quach at 11:00 am today.\T\nbsp; [address] Quach in next few weeks. 08/24/2019 [facility] - IF SEEN FOR HER CHRONIC COMPLEX REGIONAL PAIN SYNDROME/NAUSEA VOMITING IN THE EMERGENCY ROOM - TREAT WITH [facility]\T\nbsp;TREATMENT GUIDELINES IN THE ED ONLY --- DO NOT ADMIT FOR OBSERVATION OR\T\nbsp;INPATIENT - MAY NEED TO STAY FOR\T\nbsp;MULTIPLE\T\nbsp;TREATMENT ATTEMPTS - PATIENT IS NO LONGER TO BE ADMITTED\T\nbsp;FOR THIS CHRONIC CONDITION - IF SOMETHING ELSE IS FOUND ADMIT NEEDED\T\nbsp; E.D. VISIT COUNT (12 MO.) 10 [facility] H. TOTAL 10 NOTE: Visits indicate total known visits. ED/UCC VISIT TRACKING (12 MO.) 06/23/2020 16:57 [facility] [place] TYPE: Emergency COMPLAINT: - ABDOMINAL PAIN/VOMITING 06/02/2020 15:35 [facility] [place] TYPE: Emergency COMPLAINT: - ABD PAIN, VOMITING DIAGNOSES: - Allergy status to other drugs, medicaments and biological sub - Unspecified abdominal pain - [facility] (current) use of anticoagulants - Other detention (current) drug therapy - Allergy status to narcotic agent status 05/29/2020 19:40 [facility] [place] TYPE: Emergency COMPLAINT: - ABD PAIN,VOMITING DIAGNOSES: - Allergy status to narcotic agent status - Unspecified abdominal pain - Complex regional pain syndrome I of other specified site - Other ocean transportation intermediary (current) drug therapy 05/26/2020 19:15 [facility] [place] TYPE: Emergency COMPLAINT: - ABDOMINAL PAIN/VOMITING DIAGNOSES: - Allergy status to narcotic agent status - Unspecified abdominal pain - Complex regional pain syndrome I of other specified site - Other ocean transportation intermediary (current) drug therapy - Vomiting, unspecified - Unspecified abdominal pain 03/23/2020 06:39 [facility] [place] TYPE: Emergency COMPLAINT: - ABD PAIN, VOMITING 03/09/2020 13:21 [facility] [place] TYPE: [place] COMPLAINT: - ABD PAIN, VOMITING DIAGNOSES: - Personal history of nicotine dependence - Complex regional pain syndrome I, unspecified - Allergy status to narcotic agent status - Other ocean transportation intermediary (current) drug therapy - Nausea with vomiting, unspecified 03/05/2020 10:51 [facility] [place] TYPE: Emergency COMPLAINT: - ABD PAIN, VOMITING DIAGNOSES: - Other detention (current) drug therapy - Other chronic pain - Nicotine dependence, unspecified, uncomplicated - 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 [facility] [place] TYPE: Emergency COMPLAINT: - ABD PAIN, NAUSEA 08/10/2019 13:[address] [facility] [address] [facility] [place] TYPE: Emergency COMPLAINT: - ABD/BACK PAIN, VOMITING DIAGNOSES: - Other ocean transportation intermediary (current) drug therapy - Upper abdominal pain, unspecified - Allergy status to narcotic agent status - Cyclical vomiting, not intractable 08/08/2019 18:[address] [facility] [address] [facility] [place] TYPE: Emergency COMPLAINT: - SEVERE ABD AND BACK PAIN, VOMITING DIAGNOSES: - Other ocean transportation intermediary (current) drug therapy - Complex regional pain syndrome I, unspecified - Unspecified abdominal pain - Allergy status to other drugs, medicaments and biological sub - Allergy status to narcotic agent status INPATIENT VISIT TRACKING (12 MO.) 03/23/2020 15:[address] [facility] [address] [facility] [place] TYPE: Medical Surgical COMPLAINT: - BILATERAL PE DIAGNOSES: - [facility] (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 - Presence of (intrauterine) contraceptive device - Right upper quadrant pain - Complex regional pain syndrome I of left lower limb - Nonspecific elevation of levels of transaminase and lactic ac - Right upper quadrant pain - Interstitial cystitis (chronic) without hematuria - Complex regional pain syndrome I of left lower limb - Other ocean transportation intermediary (current) drug therapy - Cyclical vomiting syndrome unrelated to migraine - Major depressive disorder, single episode, unspecified - Cyclical vomiting syndrome unrelated to migraine - [facility] (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 - Nonspecific elevation of levels of transaminase and lactic ac - Other pulmonary embolism without acute cor pulmonale - Allergy status to narcotic agent status - Presence of (intrauterine) contraceptive device - Other detention (current) drug therapy - Allergy status to narcotic agent status - Major depressive disorder, single episode, unspecified - Opioid dependence, uncomplicated - Opioid dependence, uncomplicated - Interstitial cystitis (chronic) without hematuria 08/12/2019 15:12 [facility] [place] TYPE: Observation COMPLAINT: - INTACKABLE ABDOMINAL PAIN DIAGNOSES: - 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
== END 2020-06-23 19:37 | disposition home or self-care (01) ==
LOC: ED 16:56
DX: R11.2 Nausea with vomiting, unspecified (principal); R10.9 Unspecified abdominal pain; Z88.5 Allergy status to narcotic agent; Z79.899 Other long term (current) drug therapy
CPT/HCPCS: 36415; 80053; 83690; 84703; 85025; 96361; 96374; 96375; 96376; 99284-25; J2550; J7030

== ENCOUNTER 2020-06-28 16:24 | Emergency (ER) | payer MEDICARE, OTHER ==
[~2020-06-28] VITALS: Ht 165.1 cm; Wt 95.7 kg
--- OUTSIDE RECORDS SUMMARY | ~2020-06-28 | XMS | Encounter Summary ---
Demographics + + + | Address | [address] | | | [place] [address] | + + + | Home Phone | | + + + | Preferred Language | Unknown | + + + | Marital Status | Single | + + + | Catholic Affiliation | FMD | + + + | Race | White | + + + | Ethnic Group | Not or | + + + Author + + + | Author | [facility] | + + + | Organization | [facility] | + + + | Address | Unknown | + + + | Phone | Unavailable | + + + Support + + +---------+ + | Name | Relationship | Address | Phone | + + +---------+ + | Patricia Colin | ECON | Unknown | | + + +---------+ + Care Team Providers + +------+ + | Care Electronic Warfare Linguist Name | Role | Phone | + +------+ + | Justo Vazquez MD | PCP | | + +------+ + Encounter Details +--------+ + + + + | Date | Type | Department | Care Team | Description | +--------+ + + + + | 03/17/ | MyChart | [facility] Comprehensive | Yun Frey NP | Welcome | | 2017 | Encounter | Pain Center at | [address] | | | | | [facility][Note 3] | [place], [place] | | | | | [address] | [address] | | | | | [place] for [facility] | [phone] | | | | | and Healing, | | | | | | | | | | | | Floor [place], [place] | | | | | | [address] | | | | | | [phone] | | | +--------+ + + + [...]
--- OUTSIDE RECORDS SUMMARY | ~2020-06-28 | XMS | Encounter Summary ---
Demographics + + + | Address | [address] | | | [place] [address] | + + + | Home Phone | | + + + | Preferred Language | Unknown | + + + | Marital Status | Single | + + + | Oriental Orthodox Affiliation | FMD | + + + | Race | White | + + + | Ethnic Group | Not or | + + + Author + + + | Author | [facility] | + + + | Organization | [facility] | + + + | Address | Unknown | + + + | Phone | Unavailable | + + + Support + + +---------+ + | Name | Relationship | Address | Phone | + + +---------+ + | Patricia Colin | ECON | Unknown | | + + +---------+ + Care Team Providers + +------+ + | Care Purchasing Officer Name | Role | Phone | + +------+ + | Justo Vazquez MD | PCP | | + +------+ + Reason for Visit + + + | Reason | Comments | + + + | Question | | + + + Encounter Details +--------+ + + + + | Date | Type | Department | Care Team | Description | +--------+ + + + + | 08/09/ | Telephone | [facility] | [place] Bright, | Question | | 2016 | | Pain Center at | MARINE GEAR KEEPER [address] | | | | | [facility] | [place], [place] | | | | | [address] | [address] | | | | | [facility] | [phone] | | | | | and Healing, | | | | | | [facility] | | | | | | [place], [place] | | | | | | [address] | | | | | | [phone] | | | +--------+ + + + [...]
--- OUTSIDE RECORDS SUMMARY | ~2020-06-28 | XMS | Encounter Summary ---
Demographics + + + | Address | [address] | | | [place] [address] | + + + | Home Phone | | + + + | Preferred Language | Unknown | + + + | Marital Status | Single | + + + | Congregation Affiliation | FMD | + + + | Race | White | + + + | Ethnic Group | Not or | + + + Author + + + | Author | [facility] | + + + | Organization | [facility] | + + + | Address | Unknown | + + + | Phone | Unavailable | + + + Support + + +---------+ + | Name | Relationship | Address | Phone | + + +---------+ + | Patricia Colin | ECON | Unknown | | + + +---------+ + Care Team Providers + +------+ + | Care Cable Splicer Name | Role | Phone | + +------+ + | Justo Vaqzuez MD | PCP | | + +------+ + Encounter Details +--------+ + + + + | Date | Type | Department | Care Team | Description | +--------+ + + + + | 10/19/ | Telephone | [facility] | Ilene Bright, | | | 2017 | | Pain Center at | HEALTHCARE NETWORK PRICING CONSULTANT [address] | | | | | [facility] | [place], [place] | | | | | [address] | [address] | | | | | [place] for [facility] | [phone] | | | | | and Healing, | | | | | | | | | | | | Floor [place], [place] | | | | | | [address] | | | | | | [phone] | | | +--------+ + + + [...]
--- OUTSIDE RECORDS SUMMARY | ~2020-06-28 | XMS | Encounter Summary ---
Demographics + + + | Address | [address] | | | [place] [address] | + + + | Home Phone | | + + + | Preferred Language | Unknown | + + + | Marital Status | Single | + + + | Zoroastrian Affiliation | FMD | + + + | Race | White | + + + | Ethnic Group | Not or | + + + Author + + + | Author | [facility] | + + + | Organization | [facility] | + + + | Address | Unknown | + + + | Phone | Unavailable | + + + Support + + +---------+ + | Name | Relationship | Address | Phone | + + +---------+ + | Patricia Colin | ECON | Unknown | | + + +---------+ + Care Team Providers + +------+ + | Care National Coverage Specialist Name | Role | Phone | + +------+ + | Justo Vazquez MD | PCP | | + +------+ + Encounter Details +--------+ + + + + | Date | Type | Department | Care Team | Description | +--------+ + + + + | 12/28/ | Telephone | [facility] | Ilene Bright, | | | 2019 | | Pain Center at | RESPIRATORY CARE INSTRUCTOR [address] | | | | | [facility] | [place], [place] | | | | | [address] | [address] | | | | | [place] for [facility] | [phone] | | | | | and Healing, | | | | | | | | | | | | Floor [place], [place] | | | | | | [address] | | | | | | [phone] | | | +--------+ + + + [...]
--- OUTSIDE RECORDS SUMMARY | ~2020-06-28 | XMS | Encounter Summary ---
Demographics + + + | Address | [address] | | | [place] [address] | + + + | Home Phone [...] Author + + + | Author | [facility] | + + + | Organization | [facility] | + + + | Address | Unknown | + + + | Phone | Unavailable | + + + Support + + +---------+ + | Name | Relationship | Address | Phone | + + +---------+ + | Patricia Colin | ECON | Unknown | | + + +---------+ + Care Team Providers + +------+ + | Care Diet Supervisor Name | Role | Phone | + +------+ + | Justo Vazquez MD | PCP | | + +------+ + Reason for Visit + + + | Reason | Comments | + + + | Lab Order | | + + + Encounter Details +--------+ + + + + | Date | Type | Department | Care Team | Description | +--------+ + + + + | 07/14/ | Telephone | [facility] | [place]ene Bright, | Lab Order | | 2016 | | Pain Center at | PACK PRESS OPERATOR [address] | | | | | [facility] | [place], [place] | | | | | [address] | [address] | | | | | [facility] | [phone] | | | | | and Healing, | | | | | | Building | | | | | | [place], [place] | | | | | | [address] | | | | | | [phone] | | | +--------+ + + + [...]
--- OUTSIDE RECORDS SUMMARY | ~2020-06-28 | XMS | Encounter Summary ---
Demographics + + + | Address | [address] | | | [place] [address] | + + + | Home Phone [...] Author + + + | Author | [facility] | + + + | Organization | [facility] | + + + | Address | Unknown | + + + | Phone | Unavailable | + + + Support + + +---------+ + | Name | Relationship | Address | Phone | + + +---------+ + | Patricia Colin | ECON | Unknown | | + + +---------+ + Care Team Providers + +------+ + | Care Lay Out Former Name | Role | Phone | + [...] | +--------+ + + + + | 09/15/ | Telephone | [facility] | Alex Sanchez, | Question | | 2018 | | Pain Center at | ,PhD [address] | | | | | [facility] | [place] | | | | | [address] | [place], [place] | | | | | [facility] | [address] | | | | | and [place], | [phone] | | | | | Building | | | | | | Floor [place], [place] | | | | | | [address] | | | | | | [phone] | | | +--------+ + + + [...]
--- OUTSIDE RECORDS SUMMARY | ~2020-06-28 | XMS | Encounter Summary ---
Demographics + + + | Address | [address] | | | [place] [address] | + + + | Home Phone | | + + + | Preferred Language | Unknown | + + + | Marital Status | Single | + + + | Taoist Affiliation | FMD | + + + [...] Team Providers + +------+ + | Care Dental Hygiene Teacher Name | Role | Phone | + +------+ + | Justo Vazquez MD | PCP | | + +------+ + Reason for Visit + + + | Reason | Comments | + + + | Phone communication | | + + + Encounter Details +--------+ + + + + | Date | Type | Department | Care Team | Description | +--------+ + + + + | 09/30/ | Telephone | [facility] Ilene | Ilene Bright, | Phone communication | | 2017 | | Pain Center at | HEEL CEMENTER MACHINE [address] | | | | | [facility] | [place], [place] | | | | | [address] | [address] | | | | | [facility] | [phone] | | | | | and Healing, | | | | | | Building | | | | | | Floor [facility] [place] | | | | | | [address] | | | | | | [phone] | | | +--------+ + + + [...]
--- OUTSIDE RECORDS SUMMARY | ~2020-06-28 | XMS | Encounter Summary ---
Demographics + + + | Address | [address] | | | [place] [address] | + + + | Home Phone [...] Team Providers + +------+ + | Care Product Applications Scientist Name | Role | Phone | + +------+ + | Justo Vazquez MD | PCP | | + +------+ + Encounter Details +--------+ + + + + | Date | Type | Department | Care Team | Description | +--------+ + + + + | 06/07/ | Telephone | [facility] | Alex Sanchez, | | | 2019 | | Pain Center at | ,PhD [address] | | | | [facility] | [address] | | | | | [address] | [place], [place] | | | | | [place] for [facility] | [address] | | | | | and Healing, | [phone] | | | | | | | | | | | Floor [place], [place] | | | | | | [address] | | | | | | [phone] | | | +--------+ + + + [...]
--- OUTSIDE RECORDS SUMMARY | ~2020-06-28 | XMS | Encounter Summary ---
Demographics + + + | Address | [address] | | | [place] [address] | + + + | Home Phone | | + + + | Preferred Language | Unknown | + + + | Marital Status | Single | + + + | Buddhist Affiliation | FMD | + + + | Race | White | + + + | Ethnic Group | Not or | + + + Author + + + | Author | [facility] | + + + | Organization | [facility] | + + + | Address | Unknown | + + + | Phone | Unavailable | + + + Support + + +---------+ + | Name | Relationship | Address | Phone | + + +---------+ + | Patricia Colin | ECON | Unknown | | + + +---------+ + Care Team Providers + +------+ + | Care Biological Plant Operator Name | Role | Phone | [...] | | 2017 | | Center at [facility] [address] | | Review | | | | [facility] | | | | | | for Health and | | | | | | [facility] | | | | | | [place], [place] | | | | | | [address] | | | | | | [phone] | | | +--------+ + + + [...]
--- OUTSIDE RECORDS SUMMARY | ~2020-06-28 | XMS | Encounter Summary ---
Demographics + + + | Address | [address] | | | [place] [address] | + + + | Home Phone [...] Team Providers + +------+ + | Care Bricklayer Helper Name | Role | Phone | + +------+ + | Justo Vazquez MD | PCP | | + +------+ + Encounter Details +--------+ + + + + | Date | Type | Department | Care Team | Description | +--------+ + + + + | 08/03/ | Telephone | [facility] | Alex Sanchez, | | | 2018 | | Pain Center at | ,PhD [address] | | | | | [facility] | [address] | | | | | [address] | [place], [place] | | | | | [place] for [facility] | [address] | | | | | and Healing, | [phone] | | | | | | | | | | | Floor [place], [place] | | | | | | [address] | | | | | | [phone] | | | +--------+ + + + [...]
--- OUTSIDE RECORDS SUMMARY | ~2020-06-28 | XMS | Encounter Summary ---
Demographics + + + | Address | [address] | | | [place] [address] | + + + | Home Phone [...] Team Providers + +------+ + | Care Power Plant Manager Name | Role | Phone | + +------+ + | Justo Vazquez MD | PCP | | + +------+ + Encounter Details +--------+ + + + + | Date | Type | Department | Care Team | Description | +--------+ + + + + | 05/18/ | Telephone | [facility] | Alex Sanchez, | | | 2019 | | Pain Center at | ,PhD [address] | | | | | [facility] | [address] | | | | | [address] | [place], [place] | | | | | [place] for [facility] | [address] | | | | | and Healing, | [phone] | | | | | | | | | | | Floor [place], [place] | | | | | | [address] | | | | | | [phone] | | | +--------+ + + + [...]
--- OUTSIDE RECORDS SUMMARY | ~2020-06-28 | XMS | Encounter Summary ---
Demographics + + + | Address | [address] | | | [place] [address] | + + + | Home Phone [...] Team Providers + +------+ + | Care Instructor Tap Dancing Name | Role | Phone | + [...] + + | 12/05/ | Surgery | [facility] INTRA OP | Alex Sanchez, | BILATERAL DORSAL | | 2019 | | [facility] | ,PhD [address] [facility] [address] | ROOT GANGLION SPINAL | | | | and Healing Surgery | [address] | CORD STIMULATOR | | | | Center Admitting | [place], [place] | IMPLANT LUMBAR; | | | | Desk Located on the | [address] | POSTERIOR | | | | 4th floor [address] | [phone] | | | | | [address] [place], | | | | | | [place] [address] | | | +--------+---------+ + + + [...] receive a patient satisfaction survey from "Arie oRe". Elliot lopez appreciate your feedback on the [...] s/p successful DRG trial lead system with [employer] System on 09/25/2018. No changes in H&P, [...] OPERATIVE NOTE Date: December 05, 2018 Location: [facility] [place] | | | Tracie Farah [id number], presents to clinic | | | for: Dorsal root ganglion stimulator implant PROCEDURE: Dorsal | | | root ganglion stimulator implant PRE-OPERATIVE DIAGNOSIS: Complex | | | regional Pain syndrome type 1 of left lower extremity | | | POST-OPERATIVE DIAGNOSIS: Complex regional Pain syndrome type 1 of | | | left lower extremity ATTENDING PHYSICIAN: Alex Sanchez | | | NEURODIAGNOSTIC TECHNICIAN: Arben Valerio MD ANESTHESIA: sedation by IVIS Cole | | | Carmen, supervised by jewelry technician Ilir Valdes. | | | FINDINGS: Appropriate [...] sedation. Ms. Farah was escorted to the [facility] | | | [place], where she was [...] to the | | | [place] representative. A test stimulation was performed and [...] recovery. Images were saved, and sent to [employer] | | | Alex Sanchez (attending) was present for the entire procedure. | | | Arben Valerio MD I was present for the entire procedure | | | (spinal cord stimulator implantation with DRG leads at left L4 and | | | L5) and all bocanegra elements of this visit. I reviewed the | | | documentation of the other CONDENSER OPERATOR providers and concur with | | | Iman's findings. I edited his note. Alex Sanchez, | | | ,PhD Metal Stamping Machine Operator Anesthesiology and Pain Management | | | [facility] | | + + + HCG [...] + | JOSE ANTONIO MIN | [address] [facility] [address] | [place] [address] | | | OF CARE TESTS | [...]
--- OUTSIDE RECORDS SUMMARY | ~2020-06-28 | XMS | Encounter Summary ---
Demographics + + + | Address | [address] | | | [place] [address] | + + + | Home Phone [...] Team Providers + +------+ + | Care Fill Manager Name | Role | Phone | [...] | pain, | [address] | [address] | | | | | unspecified | [address] | [address] | | | | | abdominal | Rd | [place], [place] | | | | | location | [facility] [place] | [address] | | | | | Pain of | [address] | Phone: | | | | | upper | | [phone] | | | | | abdomen | | Fax: | | | | | Complex | | [phone] | | | | | regional | [...] | | | | | | | DRIVER'S EDUCATION INSTRUCTOR | | | +--------+---------+ + + + + Reason for Visit + + + | Reason | Comments | + + + | Procedure | | + + + Encounter Details +--------+ + + + + | Date | Type | Department | Care Team | Description | +--------+ + + + + | 08/30/ | Telephone | [facility] | Ilene Bright, | Procedure | | 2017 | | Pain Center at | BOTTLE TESTER [address] | | | | | [facility] | [place], [place] | | | | | [address] | [address] | | | | | [facility] | [phone] | | | | | and Healing, | | | | | | Building | | | | | | Floor [place], [place] | | | | | | [address] | | | | | | [phone] | | | +--------+ + + + [...]
--- OUTSIDE RECORDS SUMMARY | ~2020-06-28 | XMS | Encounter Summary ---
Demographics + + + | Address | [address] | | | [place] [address] | + + + | Home Phone [...] Team Providers + +------+ + | Care Zinc Plating Machine Operator Name | Role | Phone [...] + + | 08/08/ | Emergency | [facility] Emergency | Mable Villarreal MD | | | 2015 | | Department [address] | [address] [facility] | | | | | [address] | [address] | | | | | [facility] | [place], [place] | | | | | [place], [place] | [address] | | | | | [address] | [phone] | | | | | [phone] | | | | | | | Kay Brown, | | | | | | PhD SHARON | | +--------+ + + + + [...] about "Gastroparesis: Care Instructions", log into your [facility] account at [email or web address]. You can enter M106 in the [employer]" search box. Not on [facility]? Review the [facility] section of your After Visit Summary for directions on ho w to sign up. [id number] [employer] ([employer]). Care instructions adapted under license by [facility] [employer]. This care instruction is for use with your licensed healthcar e professional. If you have questions about a medical condition or this instruction, always ask your healthcare professional. [employer]) disclaims any warranty or liabili ty for your use of this information. Content Version: [id number]; Current as of: October 03, 2015 documented [...] | + +--------+ + + + | UA DIPSTICK ONLY | Urgent | 08/08/2016 | [...] | | | LABORATORY | | | EGYPTIAN | | | SERVICES, | | | [...] | + + + + + | [facility] | [address] | [place] [address] | | | SERVICES, CORE | [address] [...] + + + + + + | [facility]ATT | [address] | ms | [facility] [...] + | [facility] | [address] | [place], [place] | | | CARDIOLOGY | [address] | [address] | | + + + + + [...] | + + + + + | [facility] LABORATORY | [address] | [place] [address] | | | SERVICES, CORE | [address] [...] [facility] | [address] | [place] [address] | | | SERVICES, LILLIAN | [address] | | | + + + + + UAAYLEEN ONLY (08/08/2016 2:59 PM PDT) + + [...] [facility]IN [facility] | [address] | [place] [address] | | | SERVICES, CORE | PARK [...] | + + + + + | [facility] | [address] | [place] [address] | | | [facility] | [address] | | | + [...] organisms may result in clinically misleading | [facility] | | information due to the low numbers and /or mixture of organisms | | | present. Recollection is suggested if clinically indicated. | | + + + + + + + + | Performing | Address | City/State/Zipcode | Phone Number | | Organization | | | | + + + + + | [facility] | [address] | [place] [address] | | | [place] | | | | + + + [...] [facility] | [address] | [place] [address] | | | SERVICES, CORE | PARK [...] | included in the neutrophil count. | SERVICES, CORE | + + + + + + + + | Performing | Address | City/State/Zipcode | Phone Number | | Organization | | | | + + + + + | [facility] | [address] | [place] [address] | | | SERVICES, CORE | [address] | | | + + + + + LIPASE, PLASMA (08/08/2016 2:22 PM PDT) + +---------+ + + + | Component | Value | Ref Range | Performed | Pathologist | | | | | At | Signature | + +---------+ + + + | LIPASE | 116 (L) | 152 - 353 U/L | [facility] | | | (LAB) | | | [...] | + + + + + | [facility] | [address] [facility] | [place] [address] | | | SERVICES, CORE | [address] [...] | | | LABORATORY | | | EGYPTIAN | | | SERVICES, | | | [...] + + + + + + | [facility] | Mod Hemo | | [...] | Information: <60 mL/min/1.73 sq m Chronic Kidney | | | Disease <15 mL/min/1.73 sq m Kidney Failure | | | Estimated GFR greater that 60 mL/min/1.73 sq m is of limited clinical | | | value. The MDRD equation is not valid in the following situations: | | | - Patients under 18 years of age - Severe malnutrition or obesity | | | - Vegetarian diet - Rapidly changing kidney function | | + + + + + + + + | Performing | Address | City/State/Zipcode | Phone Number | | Organization | | | | + + + + + | [facility] | [address] | [place] [address] | | | SERVICES, CORE | [address] | | | + + + + + ED INFORMATION EXCHANGE (08/08/2016 12:21 PM PDT) + + + + + + | Component | Value | Ref Range | Performed | Pathologist | | | | | At | Signature | + + + + + + | [facility] | [id number] | | [facility] | | | | [id number] | | MEDICAL | | | | | | TECHNOLOGIE | | | | | | S | | + + + + + + + + | Specimen | + + | | + + + + + | Narrative | Performed At | + + + | [facility] has no Care Guidelines for this patient. ED/UCC VISIT | [facility] | | TRACKING (3 MO.) Visit Date Location | MEDICAL | | City ST Type Dx / | TECHNOLOGIES | | Complaint -------- | | | ------- ---- | | | 08/08/2016 12:21 [facility] and | | | [facility] [place] [id number]. abd pain | | | 08/04/2016 03:50 [facility] | | | [place] Emergency ABD PAIN,VOMITING 06/26/2016 22:44 | | | [facility] [place] | | | Emergency -Acquired absence of other specified parts of | | | | | | digestive | | | tract | | | | | | -Gastroparesis | | | | | | -Unspecified abdominal pain | | | | | | -Gastro-esophageal reflux disease without | | | esophagitis | | | | | | -Other buttermaker continuous churn (current) drug therapy 06/22/2016 17:35 | | [facility] [place] [facility] | | Emergency -abd pain, "I have gastroparesis", since , seen | | | | | | at St | | | [facility] yesterday. has been to the er | | | | | | several times | | | | | | -Abdominal Pain | | | | | | -Gastroparesis 06/19/2016 | | | 04:51 [facility] [place] | | | [place] Emergency -Gastroparesis | | | | | | -Unspecified abdominal pain | | | | | | -Other buttermaker continuous churn | | | (current) drug therapy | | | | | | -Acquired absence of other specified parts of | | | | | | digestive tract | | | 06/18/2016 07:18 [facility] | | | 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 | | | | | | --- CARE PROVIDERS Name | | | Phone Type Service | | | Dates ---- ----- | | | ---- Allegra Nieto | | | Oksana at Primary Care Unknown Primary Care | | | Unknown - Current | | + + + + + + + + | Performing | Address | City/State/Zipcode | Phone Number | | Organization | | | | + + + + + | [facility] | [address] | [place], [place] | [phone] | | TECHNOLOGIES | [address] | [address] | | + + + + + [...] | | | | | 1 dose, 08/08/16 at 1345 | | PM PDT | | | | + +---------+ +-------+---+---+ +---+---+ | | | +---+---+ + +-------+ +------+---+---+ | LORazepam (ATIVAN) tablet 1 mg | Given | 08/08/20 | 1 mg | | | | 1 mg, oral, ONCE, 1 dose, Sun | | 16 3:17 | | | [...]
--- OUTSIDE RECORDS SUMMARY | ~2020-06-28 | XMS | Encounter Summary ---
Demographics + + + | Address | [address] | | | [place] [address] | + + + | Home Phone [...] Team Providers + +------+ + | Care University Controller Name | Role | Phone | + +------+ + | Justo Vazquez MD | PCP | | + +------+ + Encounter Details +--------+ + + + + | Date | Type | Department | Care Team | Description | +--------+ + + + + | 01/02/ | Telephone | [facility] | Ilene Bright, | | | 2019 | | Pain Center at | SAP MANAGER [address] | | | | | [facility] | [place], [place] | | | | | [address] | [address] | | | | | [place] for [facility] | [phone] | | | | | and Healing, | | | | | | | | | | | | Floor [place], [place] | | | | | | [address] | | | | | | [phone] | | | +--------+ + + + [...]
--- OUTSIDE RECORDS SUMMARY | ~2020-06-28 | XMS | Encounter Summary ---
Demographics + + + | Address | [address] | | | [place] [address] | + + + | Home Phone [...] Team Providers + +------+ + | Care Land Surveying Manager Name | Role | Phone | [...] | +--------+ + + + + | 03/11/ | Abstract | [facility]ive Health | Kenny Gaspar MD | Medical Records | | 2017 | | Center at [facility] [address] | | Review | | | | [facility] | | | | | | for Health and | | | | | | [facility] | | | | | | [place], [place] | | | | | | [address] | | | | | | [phone] | | | +--------+ + + + [...]
--- OUTSIDE RECORDS SUMMARY | ~2020-06-28 | XMS | Encounter Summary ---
Demographics + + + | Address | [address] | | | [place] [address] | + + + | Home Phone | | + + + | Preferred Language | Unknown | + + + | Marital Status | Single | + + + | Restoration Affiliation | FMD | + + + | Race | White | + + + | Ethnic Group | Not or | + + + Author + + + | Author | [facility] | + + + | Organization | [facility] | + + + | Address | Unknown | + + + | Phone | Unavailable | + + + Support + + +---------+ + | Name | Relationship | Address | Phone | + + +---------+ + | Patricia Colin | ECON | Unknown | | + + +---------+ + Care Team Providers + +------+ + | Care Windshield Installer Name | Role | Phone | + [...] + + | 12/26/ | Refill | [facility] Comprehensive | Alex Sanchez, | Refill Request | | 2019 | | Pain Center at | ,PhD [address] [facility] | | | | | [facility] | [address] | | | | | [address] | [place], [place] | | | | | [facility] | [address] | | | | | and Martina, | [phone] | | | | | [facility] | | | | | | Floor [place], [place] | | | | | | [address] | | | | | | [phone] | | | +--------+--------+ + + + [...]
--- OUTSIDE RECORDS SUMMARY | ~2020-06-28 | XMS | Encounter Summary ---
Demographics + + + | Address | [address] | | | [place] [address] | + + + | Home Phone [...] + +------+ + | Care Director Of Employer Services Name | Role | Phone | [...] | | Pain Center at | ,PhD [address] [facility] | follow-up | | | | [facility] | [address] | | | | | [address] | [place], [place] | | | | | [facility] | [address] | | | | | and Martina, | [phone] | | | | | Building | | | | | | Floor [place], [place] | | | | | | [address] | | | | | | [phone] | | | +--------+ + + + [...]
--- OUTSIDE RECORDS SUMMARY | ~2020-06-28 | XMS | Encounter Summary ---
Demographics + + + | Address | [address] | | | [place] [address] | + + + | Home Phone [...] Team Providers + +------+ + | Care Hospitalist Name | Role | Phone | + +------+ + | Allegra Chaudhary | PCP | | + +------+ + Reason for Visit PROC - Dept/Practice Procedure (Routine) +--------+--------+ + [...] ogy | | Ava Torres, | [facility] [address] | | | | | Constipation | [address] | [address] | | | | | , | [address] | [place] for | | | | | unspecified | [address] | Health and | | | | | constipation | [facility] [place] | Healing, | | | | | type | [address] | Building [address] | | | | | Procedures | | [place], [place] | | | | | CONSULT TO | | [address] | | | | | GI PROCEDURE | | Phone: | | | | | UNIT: | | [phone] | | | | | ANORECTAL | | Fax: | | | | | MANOMETRY | | [phone] | | | | | [place] ANAL | | | | | | | PRESSURE | | | | | | | RECORD | | | +--------+--------+ + + + + Encounter Details +--------+ + + + + | Date | Type | Department | Care Team | Description | +--------+ + + + + | 09/14/ | Hospital | [facility] | Nurse, Gip [address] | | | 2016 | Encounter | [place] [address] [facility] | | | | | [facility] for | Road [place], [place] | | | | | Health and Healing, | [address] | | | | | Building 2 | | | | | | [place], [place] | | | | | | [address] | | | | | | [phone] | | | +--------+ + + + [...] | + +--------+ + + + | ANAL MANOMETRY | | 09/14/2016 | | | | | | 12:00 AM | | | | | | PDT | | | + +--------+ + + + documented in this encounter Visit Diagnoses Not on filedocumented in this encounter"
--- OUTSIDE RECORDS SUMMARY | ~2020-06-28 | XMS | Encounter Summary ---
Demographics + + + | Address | [address] | | | [place] [address] | + + + | Home Phone [...] Team Providers + +------+ + | Care Rosin Barrel Filler Name | Role | Phone | + [...] + + | 10/21/ | Hospital | [place] [address] | [place], | | | 2015 - | Encounter | [facility] | MD Tala [address] | | | | | [address] [place] [address] | [facility] | | | 10/25/ | | [place], [place] | [place], [place] | | | 2014 | | [address] | [address] | | | | | [phone] | [phone] | | | | | | | | | | | | Clifton Childers | | | | | | MD Nhan [address] [facility] | | | | | | [facility] | | | | | | [place], [place] | | | | | | [address] | | | | | | [phone] | | | | | | | [...] child. Followed by Dr. Katy berrios at [facility] in [place], [place]. Has been on a stable regimen for [...] agreeable with our plans. Clifton Childers MD Cylinder Filler Division of Hospital Medicine Teaching Attending I [...] child. Followed by Dr. Katy berrios at [facility] in [place], [place], has been on a stable regimen [...] and discussed with Dr. Childers and Dr. Moraeu, who are in agreement with the assessment and plan. Lolita Ma MD, MPH Pager #[phone] PGY-1, Anesthesiology [facility] Associated attestation - Clifton Childers MD [...] agreeable with our plans. Clifton Childers MD Cylinder Filler Division of Hospital Medicine Teaching Attending I [...] child. Followed by Dr. Katy berrios at [facility] in [place], [place], has been on a stable regimen for [...] and plan. Lolita Ma MD, MPH Pager #[phone] PGY-1, Anesthesiology [facility] Associated attestation - Clifton Childers MD [...] history, primarily secondary to CPRS in the [facility] ng of complicated ankle fracture age [...] would like the patient to establish in prison counseling and/or CBT as an outpatient if willing. Patient/Family Goals & Expectations: Above problems discussed with the patient who understands and is agreeable with our plans. Clifton Childers MD Cylinder Filler Division of Hospital Medicine Teaching Attending I [...] good coping mechanism Heme/Lymphatic: negative Endocrine: negative Mental Hygiene Consultant: negative Past Medical History: History of chronic [...] with questions/concerns Aba Dorman MD, PGY 3 Receiving Room Clerk [place]-2 APS Pager: [phone] BILLING INFORMATION Deferred to attending physician. Ms. [...] up at this point. Please contact APS (#[phone]) if further assistance is needed. Ulices Lopez MD BILLING INFORMATION [facility] DEPARTMENT: [phone] Place of Service:- Inpatient Date of Service: 10/23/2015 CSN: [id number] Suggested Modifier: GC - Resident Involved Suggested CPT: 65648 - Follow up visit (includes PNB) - 15 min - low complexity Prolonged service: n/a Counseling and Coordination: n/a iMlton Moreau MD - 10/22/2015 6:58 PM PSTPOST [...] today recd call from Dr. Madrid from [facility]. She has known pt for many yea rs and suggested ketamine and propofol gtt. Updated her on APS recommendations. She will hav e her office fax her clinic records to us. Pt was seen with Dr. Childers. Milton Moreau MD PGY-3, Internal Medicine Pager [phone] Pro Edwards RN - 10/22/2015 10:06 AM [...] | | | LABORATORY | | | ANGUILLAN | | | SERVICES, | | | [...] | + + + + + | [facility] | [address] | [place] [address] | | | SERVICES, CORE | PARK [...] | + + + | STAT | [facility] | | | LABORATORY | | | LILLIAN CROSS | + + + + + + + + | Performing | Address | City/State/Zipcode | Phone Number | | Organization | | | | + + + + + | [facility] | [address] | [place] [address] | | | SERVICESLILLIAN | [address] [...] | | | LABORATORY | | | ANGUILLAN | | | SERVICES, | | | [...] [facility] | [address] | [place] [address] | | | SERVICES, CORE | PARK [...] | + + + + + | [facility] | [address] | [place] [address] | | | SERVICES, CORE | [address] [...] [facility] | [address] | [place] [address] | | | SERVICES, CORE | PARK [...] HOSPITAL LABORATORY | [address] | [place] [address] | | | SERVICES, CORE | PARK [...] | + + + + + | [facility] | [address] [facility] | [place] [address] | | | SERVICES, CORE | [address]LLER[address] [...] | | | LABORATORY | | | ANGUILLAN | | | SERVICES, | | | [...] [facility] | [address] | [place] [address] | | | SERVICES, CORE | PARK [...] | | | | | 1 dose, [facility] 10/23/15 at 1245 | | PM PST | | | | + +-------+ +-------+---+---+ +---+---+ | | | +---+---+ + +-------+ +--------+---+---+ | ibuprofen (MOTRIN) tablet 600 | Given | 10/25/20 | 600 mg | | | | mg 600 mg, oral, EVERY 6 HOURS, | | 15 8:05 | | | | | First dose on [facility] 10/23/15 at | | AM PST [...] | | | | | NEEDED, Starting [facility] 10/23/15 at | | | | [...]
--- OUTSIDE RECORDS SUMMARY | ~2020-06-28 | XMS | Encounter Summary ---
Demographics + + + | Address | [address] | | | [place] [address] | + + + | Home Phone [...] Team Providers + +------+ + | Care Patrol Officer Name | Role | Phone | + +------+ + | Justo Vazquez MD | PCP | | + +------+ + Encounter Details +--------+ + + + + | Date | Type | Department | Care Team | Description | +--------+ + + + + | 01/11/ | Procedure | Diagnostic Imaging | | | | 2016 | Pass | Services at [facility] | | | | | | [address] | | | | | | [address] | | | | | | [facility] | | | | | | [place], [place] | | | | | | [address] | | | | | | [phone] | | | +--------+ + + + [...]
--- OUTSIDE RECORDS SUMMARY | ~2020-06-28 | XMS | Encounter Summary ---
Demographics + + + | Address | [address] | | | [place] [address] | + + + | Home Phone [...] Team Providers + +------+ + | Care Lace Weaver Name | Role | Phone | + +------+ + | Allegra Chaudhary | PCP | | + +------+ + Encounter Details +--------+ + + + + | Date | Type | Department | Care Team | Description | +--------+ + + + + | 09/15/ | Documentati | Digestive Health | Bruna Quinones, | | | 2016 | on | Center at [facility] [address] | MD [address] | | | | | [address] [place] | [facility] [place] | | | | | for Health and | [address] | | | | | Healing, Building 2 | [phone] | | | | | [place], [place] | | | | | | [address] | | | | | | [phone] | | | +--------+ + + + [...]
--- OUTSIDE RECORDS SUMMARY | ~2020-06-28 | XMS | Encounter Summary ---
Demographics + + + | Address | [address] | | | [place] [address] | + + + | Home Phone [...] Team Providers + +------+ + | Care Running Specialist Name | Role | Phone | [...] | | Pain Center at | ,PhD [address] | follow-up | | | | [facility] | [address] | | | | | [address] | [place], [place] | | | | | [facility] | [address] | | | | | and Martina, | [phone] | | | | | Building | | | | | | Floor [place], [place] | | | | | | [address] | | | | | | [phone] | | | +--------+ + + + [...]
--- OUTSIDE RECORDS SUMMARY | ~2020-06-28 | XMS | Encounter Summary ---
Demographics + + + | Address | [address] | | | [place] [address] | + + + | Home Phone [...] Team Providers + +------+ + | Care Canine Enforcement Officer Name | Role | Phone | + +------+ + | Justo Vazquez MD | PCP | | + +------+ + Reason for Visit +--------+ + | Reason | Comments | +--------+ + | Pain | | +--------+ + Encounter Details +--------+--------+ + + + | Date | Type | Department | Care Team | Description | +--------+--------+ + + + | 04/14/ | Refill | Digestive Health | Kenny Gaspar MD | Pain | | 2017 | | Center at [facility] [address] | | | | | | [address] [facility] | | | | | | for Health and | | | | | | Healing, Building 2 | | | | | | [place], [place] | | | | | | [address] | | | | | | [phone] | | | +--------+--------+ + + + [...] site | + + documented in this encounter"
--- OUTSIDE RECORDS SUMMARY | ~2020-06-28 | XMS | Encounter Summary ---
Demographics + + + | Address | [address] | | | [place] [address] | + + + | Home Phone [...] Team Providers + +------+ + | Care Transportation Escort Name | Role | Phone | + [...] [address] | | | | | [facility] | [address] | | | | | [address] | [place], [place] | | | | | [place] for [facility] | [address] | | | | | and Healing, | [phone] | | | | | | | | | | | Floor [place], [place] | | | | | | [address] | | | | | | [phone] | | | +--------+ + + + [...]
--- OUTSIDE RECORDS SUMMARY | ~2020-06-28 | XMS | Encounter Summary ---
Demographics + + + | Address | [address] | | | [place] [address] | + + + | Home Phone [...] Team Providers + +------+ + | Care Motel Keeper Name | Role | Phone | + +------+ + | Allegra Gandhi | PCP | | + +------+ + Encounter Details +--------+ + + + + | Date | Type | Department | Care Team | Description | +--------+ + + + + | 08/02/ | Results | [facility] | Janak Riojas, | | | 2011 | Only | Pain Center at | MD [address] [facility] | | | | | [facility] [place] | [facility] [id number] | | | | | [address] | [place], [place] | | | | | Center for Health | [address] | | | | | and Martina, | [phone] | | | | | | | | | | | Floor [place], [place] | | | | | | [address] | | | | | | [phone] | | | +--------+ + + + [...]
--- OUTSIDE RECORDS SUMMARY | ~2020-06-28 | XMS | Encounter Summary ---
Demographics + + + | Address | [address] | | | [place] [address] | + + + | Home Phone [...] Team Providers + +------+ + | Care Commissary Officer Name | Role | Phone | [...] | | 2017 | | Center at [facility] [address] | MD Melissa | Marker instructions) | | | | [address] [facility] | | | | | | for Health and | | | | | | Healing, Building 2 | | | | | | [place], [place] | | | | | | [address] | | | | | | [phone] | | | +--------+ + + + [...]
--- OUTSIDE RECORDS SUMMARY | ~2020-06-28 | XMS | Encounter Summary ---
Demographics + + + | Address | [address] | | | [place] [address] | + + + | Home Phone [...] Team Providers + +------+ + | Care Telegraph Repeater Technician Name | Role | Phone | [...] with nausea | [address] | Rd [place], | | | | | Complex | Rd | [place] | | | | | regional | [place], [place] | [address] | | | | | pain | [address] | Phone: | | | | | syndrome | Phone: | [phone] | | | | | type 1 of | [phone] | Fax: | | | | | left lower | Fax: | [phone] | | | | | extremity | [phone] | | | | | | Procedures [...] | | | | | unspecified | [facility] | [address] | | | | | location | Rd | [facility] | | | | | Procedures | [place], [place] | Rd [place], | | | | | CONSULT TO | [address] | [place] | | | | | PAIN | | [address] | | | | | MANAGEMENT | | Phone: | | | | | | | [phone] | | | | | | | Fax: | | | | | | | [phone] | +--------+--------+ + + + + Encounter Details +--------+---------+ + + + | Date | Type | Department | Care Team | Description | +--------+---------+ + + + | 04/19/ | Office | [facility] [place] | Alex Sanchez, | Intractable cyclical | | 2018 | Visit | Pain Center at | ,PhD [address] | vomiting with | | | | [facility] | [address] | nausea (Primary Dx); | | | | [address] | [place], [place] | Complex regional | | | | [place] for [facility] | [address] | pain syndrome type 1 | | | | and Healing, | [phone] | of left lower | | | | Building | | extremity | | | | Floor [facility] [place] | | | | | | [address] | | | | | | [phone] | | | +--------+---------+ + + + [...] might be differe nt from the original. [facility] Center Return Visit Date: 04/20/2018 Chief Complaint Patient presents with Abdominal pain Back pain Pain in left leg History of Present Illness: Tracie Farah is a 27 year old female, whose last appoi ntment at the [facility] was 12/27/2017, for a procedure [...] not help for the abdominal pain). PA[facility]BRIEF: [facility] Brief Pain Inventory: (ten= worst possible [...] Hemroidectomy Trial spinal cord stimulator leads 08/02/2012 [facility], Surgeon: Janak Riojas MD Cholecystectomy [...] History Social History Narrative Single. Goes to [employer] college with a light load. Has been working at [employer], can' t work on [employer]. Has roommates. Allergies Allergen Reactions Morphine Anaphylaxis [...] by physician. Concentration is 150mg/mL. Compounded by [facility] ) KETOROLAC IM Inject into the [...] GRAM-5.86 GRAM SOLUTION Take as directed by [facility] Dig[facility]- 2 gallon bowel prep POLYETHYLENE [...] to her by Christie Madrid MD in [place], [place]. As she chowdhury s since left the practice, Ms. Farah no longer has a prescriber for this medication. At [facility], we typically do [...] unclear etiology. [facility] [place] and is greatly helped by Toradol, antiemetics [...] Follow up as needed Alex Sanchez MD,PhD [facility] 3 :41 PM PDTSmithCharline MA [...]
--- OUTSIDE RECORDS SUMMARY | ~2020-06-28 | XMS | Encounter Summary ---
Demographics + + + | Address | [address] | | | [place] [address] | + + + | Home Phone [...] Team Providers + +------+ + | Care Gut Sorter Name | Role | Phone | + [...] | Diagnoses | Beulah | Edu Pt Axle Polisher | | | | Therapy | CRPS | Janak Martinez MD | [address] | | | | | (complex | [address] | | | | | regional | [address] | Mailcode: | | | | | pain | Mailstop | [facility] | | | | | syndrome), | [id number] | for Health | | | | | lower limb | [place], [place] | and Healing, | | | | | Gait | [address] | Building 1 | | | | | disturbance | Phone: | [place], [place] | | | | | Muscle pain | [phone] | [address] | | | | | Procedures | Fax: | Phone: | | | | | PHYSICAL | [phone] | [phone] | | | | | THERAPY | [...] | | | | [place] | [place] [address] | syndrome), lower | | | | [address] | [phone] | limb (Primary Dx) | | | | [facility] | | | | | | and Healing, | | | | | | Building 1, | | | | | | Floor [place], [place] | | | | | | [address] | | | | | | [phone] | | | +--------+---------+ + + + [...] PDT documented in this encounter Progress Notes Guillremo Sanon I, PT - 05/03/2012 3:08 PM PDTFormatting of this note might be different f rom the original. [id number] BRODY FARAH Date of : 1990 Start of care: 02/14/2012 Date of onset: 02/14/2012 Referring/Attending Practitioner: Janak Riojas MD . Primary/Referral Diagnosis/ICD-9: 355.71B CRPS (complex regional pain syndrome), lower limb Insurance: Payor: [facility] [employer] [facility] Plan: BCBS OUT OF STATE Product Type: PP O Service period from: 02/14/2012 to: 08/12/2012 Number visits used/authorized: 12/26 [facility] PHYSICAL THERAPY PROGRESS NOTE SUBJECTIVE: Age: 21 y.o. Sex: female Chief complaint: No chief complaint on file. 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 She is doing much better ov [facility], possibly because she finished school and so has less stress. She stopped using crutch es in early April (18 days ago) which is less stressful. Now she is working at [employer] 2-3 hours per week, and spends a [...] sometimes pain meds. Social History: lives in [place], 22 years old, not working [...] or concerns about therapy: she lives in [place]. She is r equesting family [...] change in their status. Guillermo Sanon MSPBren [facility] Outpatient Rehabilitation Services Mailcode: Ch3p [address] [facility], 1st Floor [facility] [address] documented in this encounter Plan of Treatment Not on filedocumented as of this encounter Procedures + +--------+ + + + | Procedure Name | Priori | Date/Time | Associated Diagnosis | Comments | | | ty | | | | + +--------+ + + + | AR THERAPEUTIC | Routin | 05/03/2012 | CRPS [...]
--- OUTSIDE RECORDS SUMMARY | ~2020-06-28 | XMS | Encounter Summary ---
Demographics + + + | Address | [address] | | | [place] [address] | + + + | Home Phone [...] Team Providers + +------+ + | Care Nailhead Setter Name | Role | Phone | + [...] Description | +--------+--------+ + + + | 08/07/ | Refill | [facility] Comprehensive | Alex Sanchez, | Refill Request | | 2018 | | Pain Center at | ,PhD [address] | | | | | [facility] | [address] | | | | | [address] | [place], [place] | | | | | [facility] | [address] | | | | | and Martina, | [phone] | | | | | [facility] | | | | | | Floor [place], [place] | | | | | | [address] | | | | | | [phone] | | | +--------+--------+ + + + [...]
--- OUTSIDE RECORDS SUMMARY | ~2020-06-28 | XMS | Encounter Summary ---
Demographics + + + | Address | [address] | | | [place] [address] | + + + | Home Phone [...] Team Providers + +------+ + | Care Lang Path Therapist Name | Role | Phone | + +------+ + | Justo Vazquez MD | PCP | | + +------+ + Encounter Details +--------+ + + + + | Date | Type | Department | Care Team | Description | +--------+ + + + + | 12/07/ | Pharmacy | [facility] | | | | 2019 | Visit | & [facility] | | | | | | [address] | | | | | | Mailcode: [place] | | | | | | [facility] | | | | | | Healing, Building 1 | | | | | | [place], [place] | | | | | | [address] | | | | | | [phone] | | | +--------+ + + + [...]
--- OUTSIDE RECORDS SUMMARY | ~2020-06-28 | XMS | Encounter Summary ---
Demographics + + + | Address | [address] | | | [place] [address] | + + + | Home Phone [...] Team Providers + +------+ + | Care Specialty Molder Name | Role | Phone | + +------+ + | Justo Vazquez MD | PCP | | + +------+ + Encounter Details +--------+ + + + + | Date | Type | Department | Care Team | Description | +--------+ + + + + | 10/09/ | Telephone | [facility] | Alex Sanchez, | | | 2018 | | Pain Center at | ,PhD [address] | | | | | [facility] | [address] | | | | | [address] | [place], [place] | | | | | [place] for [facility] | [address] | | | | | and Healing, | [phone] | | | | | | | | | | | Floor [place], [place] | | | | | | [address] | | | | | | [phone] | | | +--------+ + + + [...]
--- OUTSIDE RECORDS SUMMARY | ~2020-06-28 | XMS | Encounter Summary ---
Demographics + + + | Address | [address] | | | [place] [address] | + + + | Home Phone [...] Team Providers + +------+ + | Care Inserting Operator Name | Role | Phone | [...] | Pain Center at | [address] | | | | | [facility] | [id number] | | | | | [address] | [place], [place] | | | | | Center for Health | [address] | | | | | and Healing, | [phone] | | | | | [facility] | | | | | | Floor [place], [place] | | | | | | [address] | | | | | | [phone] | | | +--------+ + + + [...]
--- OUTSIDE RECORDS SUMMARY | ~2020-06-28 | XMS | Encounter Summary ---
Demographics + + + | Address | [address] | | | [place] [address] | + + + | Home Phone | | + + + | Preferred Language | Unknown | + + + | Marital Status | Single | + + + | Taoism Affiliation | FMD | + + + [...] Team Providers + +------+ + | Care Pediatric Dietician Name | Role | Phone | + +------+ + | Justo Vazquez MD | PCP | | + +------+ + Encounter Details +--------+ + + + + | Date | Type | Department | Care Team | Description | +--------+ + + + + | 08/07/ | Telephone | [facility] | Alex Sanchez, | | | 2019 | | Pain Center at | ,PhD [address] | | | | | [facility] | [address] | | | | | [address] | [place], [place] | | | | | [place] for [facility] | [address] | | | | | and Healing, | [phone] | | | | | | | | | | | Floor [place], [place] | | | | | | [address] | | | | | | [phone] | | | +--------+ + + + [...]
--- OUTSIDE RECORDS SUMMARY | ~2020-06-28 | XMS | Encounter Summary ---
Demographics + + + | Address | [address] | | | [place] [address] | + + + | Home Phone [...] Team Providers + +------+ + | Care Disease Management Nurse Name | Role | Phone | + +------+ + | Justo Vazquez MD | PCP | | + +------+ + Encounter Details +--------+ + + + + | Date | Type | Department | Care Team | Description | +--------+ + + + + | 10/09/ | Telephone | [facility] | Alex Sanchez, | | | 2018 | | Pain Center at | ,PhD [address] | | | | | [facility] | [address] | | | | | [address] | [place], [place] | | | | | [place] for [facility] | [address] | | | | | and Healing, | [phone] | | | | | | | | | | | Floor [place], [place] | | | | | | [address] | | | | | | [phone] | | | +--------+ + + + [...]
--- OUTSIDE RECORDS SUMMARY | ~2020-06-28 | XMS | Encounter Summary ---
Demographics + + + | Address | [address] | | | [place] [address] | + + + | Home Phone [...] Author | [facility] | + + + | Organization | [facility] | + + + | Address | Unknown | + + + | Phone | Unavailable | + + + Support + + +---------+ + | Name | Relationship | Address | Phone | + + +---------+ + | Patricia Colin | ECON | Unknown | | + + +---------+ + Care Team Providers + +------+ + | Care Human Resources Project Coordinator Name | Role | Phone | [...] + + | 08/08/ | Emergency | [facility] Emergency | Mable Villarreal MD | | | 2015 | | Department [address] | [address] [facility] | | | | | [address] | [address] | | | | | [facility] | [place], [place] | | | | | [place], [place] | [address] | | | | | [address] | [phone] | | | | | [phone] | | | | | | | [...] about "Gastroparesis: Care Instructions", log into your Curvo account at [email or web address]. You can enter M106 in the LOOKCAST" search box. Not on Curvo? Review the Curvo section of your After Visit Summary for directions on ho w to sign up. [id number] [employer]. Care instructions adapted under license by [facility] [place]. This care instruction is for use with your licensed healthcar e professional. If you have questions about a medical condition or this instruction, always ask your healthcare professional. [employer] disclaims any warranty or liabili ty for your use of this information. Content Version: [id number]; Current as of: October 03, 2015 documented [...] | | | LABORATORY | | | [facility] | | | SERVICES, | | | [...] | + + + + + | [facility] | [address] | [place] [address] | | | SERVICES, CORE | [address] [...] DEPT OF | [address] | [place], [place] | | | CARDIOLOGY | [address] | [address] | | + + + + + [...] | + + + + + | [facility] LABORATORY | [address] | [place] [address] | | | SERVICES, CORE | [address] [...] [facility] | [address] | [place] [address] | | | SERVICES, LILLIAN | [address] [...] KEVIN SHAH | [address] | [place] [address] | | | SERVICES, CORE | [address] [...] | + + + + + | [facility] | [address] | [place] [address] | | | [facility] | [address] | | | + [...] organisms may result in clinically misleading | [facility] | | information due to the low numbers and /or mixture of organisms | | | present. Recollection is suggested if clinically indicated. | | + + + + + + + + | Performing | Address | City/State/Zipcode | Phone Number | | Organization | | | | + + + + + | [facility] | [address] | [place] [address] | | | [place] | | | | + + + [...] [facility] | [address] | [place] [address] | | | SERVICES, CORE | [address] [...] | + + + + + | [facility] | [address] | [place] [address] | | | SERVICES, CORE | [address] | | | + + + + + LIPASE, PLASMA (08/08/2016 2:22 PM PDT) + +---------+ + + + | Component | Value | Ref Range | Performed | Pathologist | | | | | At | Signature | + +---------+ + + + | LIPASE | 116 (L) | 152 - 353 U/L | [facility] | | | (LAB) [...] | + + + + + | [facility] | [address] | [place] [address] | | | SERVICES, CORE | [address] [...] | | | LABORATORY | | | [facility] | | | SERVICES, | | | [...] | + + + + + | [facility] | [address] | [place] [address] | | | SERVICES, CORE | [address] | | | + + + + + ED INFORMATION EXCHANGE (08/08/2016 12:21 PM PDT) + + + + + + | Component | Value | Ref Range | Performed | Pathologist | | | | | At | Signature | + + + + + + | [facility] | [id number] | | COLLECTIVE | | | | [id number] | | MEDICAL | | | | [...] ------- ---- | | | 08/08/2016 12:21 [facility] and | | | [facility] [place] Emergency [address]. abd pain | | | 08/04/2016 03:50 [facility] | | [place] Emergency ABD PAIN,VOMITING 06/26/2016 22:44 | | | [facility] 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 has been to the er | | | | | | several times | | | | | | -Abdominal Pain | | | | | | -Gastroparesis 06/19/2016 | | | 04:51 [facility] [place] | | | [place] Emergency -Gastroparesis | | | | | | -Unspecified abdominal pain | | | | | | -Other watermelon harvesting supervisor | | | (current) drug therapy | | | | | | -Acquired absence of other specified parts of | | | | | | digestive tract | | | 06/18/2016 07:18 [facility] | | | [place] Emergency [...] Location ------ --------- 1 | | | [facility] 1 | | | [facility] 8 [facility] 10 | | | Total Note: Visits [...] COLLECTIVE MEDICAL | [address] | [place], [place] | [phone] | | TECHNOLOGIES | [address] | [address] | | + + + + + [...]
--- OUTSIDE RECORDS SUMMARY | ~2020-06-28 | XMS | Encounter Summary ---
Demographics + + + | Address | [address] | | | [place] [address] | + + + | Home Phone [...] Providers + +------+ + | Care Correctional Lieutenant Name | Role | Phone | + +------+ + | Justo Vazquez MD | PCP | | + +------+ + Encounter Details +--------+ + + + + | Date | Type | Department | Care Team | Description | +--------+ + + + + | 03/17/ | MyChart | [facility] Comprehensive | Yun Frey NP | Welcome | | 2017 | Encounter | Pain Center at | [address] | | | | | [facility] | [place], [place] | | | | | [address] | [address] | | | | | [place] for [facility] | [phone] | | | | | and Healing, | | | | | | | | | | | | Floor [place], [place] | | | | | | [address] | | | | | | [phone] | | | +--------+ + + + [...]
--- OUTSIDE RECORDS SUMMARY | ~2020-06-28 | XMS | Encounter Summary ---
Demographics + + + | Address | [address] | | | [place] [address] | + + + | Home Phone [...] Team Providers + +------+ + | Care Dehydrator Tender Name | Role | Phone | + +------+ + | Allegra Chaudhary | PCP | | + +------+ + Encounter Details +--------+ + + + + | Date | Type | Department | Care Team | Description | +--------+ + + + + | 08/13/ | MyChart | Digestive Health | Ava Carbajal | Bowel Prep | | 2015 | Encounter | Center at [facility] [address] | MD Melissa | | | | | [address] [facility] | | | | | | for Health and | | | | | | Healing, Building [address] | | | | | | [place], [place] | | | | | | [address] | | | | | | [phone] | | | +--------+ + + + [...]
--- OUTSIDE RECORDS SUMMARY | ~2020-06-28 | XMS | Encounter Summary ---
Demographics + + + | Address | [address] | | | [place] [address] | + + + | Home Phone [...] Team Providers + +------+ + | Care Surveillance Sensor Operator Name | Role | Phone | + +------+ + | Justo Vazquez MD | PCP | | + +------+ + Encounter Details +--------+ + + + + | Date | Type | Department | Care Team | Description | +--------+ + + + + | 07/26/ | MyChart | [facility] Comprehensive | Ilene Bright, | Labs | | 2017 | Encounter | Pain Center at | CLINICAL SPECIALIST VASCULAR [address] | | | | | [facility] | [place], [place] | | | | | [address] | [address] | | | | | [place] for [facility] | [phone] | | | | | and Healing, | | | | | | | | | | | | Floor [place], [place] | | | | | | [address] | | | | | | [phone] | | | +--------+ + + + [...]
--- OUTSIDE RECORDS SUMMARY | ~2020-06-28 | XMS | Encounter Summary ---
Demographics + + + | Address | [address] | | | [place] [address] | + + + | Home Phone [...] | | | regional | [place] | [address] | | | | | pain | FAMILY | [address] | | | | | syndrome), | MEDICINE P | [id number] | | | | | lower limb | [address] | [place], [place] | | | | | Pain in | [place], | [address] | | | | | joint, lower | [place] [address] | Phone: | | | | | leg | Phone: | [phone] | | | | | Procedures | [phone] | Fax: | | | | | REQUEST TO | Fax: | [phone] | | | | | SURGERY | [phone] | | | | | | SALES AND MARKETING AGENT | | | +--------+--------+ + + + [...] | | | 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 | Dale Cantu, | CRPS (complex | | 2011 | Visit | Pain Center at | MD [address] [facility] | regional pain | | | | [facility] | [facility] [id number] | syndrome), lower | | | | [address] | [place], [place] | limb; Pain in joint, | | | | Center for [facility] | [address] | lower leg | | | | and Healing, | [phone] | | | | | | | | | | | Floor [place], [place] | | | | | | [address] | | | | | | [phone] | | | +--------+---------+ + + + [...] Dale Cantu MD - 06/06/2012 11:49 [facility] Pre-Procedure Instructions: The procedure you discussed with your doctor is called: SCS TRIAL LUMBAR [facility]. Please make sure this is scheduled with the Sebd Teacher. Please bring a home delivery driver with you. We may give you medications that make you drowsy or otherw ise unsafe to drive. If you do not have a home delivery driver, we will not be able to do your procedure. DO NOT EAT ANYTHING AFTER MIDNIGHT If your appointment is after 1 PM , you may have a very light, low fat breakfast, such as h shelter a piece of dry toast or a [...] PLEASE CONTACT THE COMPREHENSIVE PAIN CENTER AT [phone] ([phone]) FOR QUESTIONS OR IF YOU NEED TO CANCEL YOUR APPOINTMENT. [facility] Center documented in this encounter [...] not signed. Given information. DALE CANTU MD Paper Hanger, [facility] Special Service Representative, Pain Medicine Professor, Anesthesiology & Perioperative Medicine ollHomer manriquez MD - 06/06/2012 11:17 AM PDT [facility] Return Visit with Dr. [...] and a pain drawing which I reviewed. TEST INSPECTION ENGINEER Brief Pain Inventory: (ten= worst possible pain or complete interference) Right Now: 8 (06/06/121101) Least in 24 hours: 8 (06/06/121101) Worst in 24 hours: 9 (06/06/121101) Average: 8 (06/06/121101) % Relief (med/treat): 10 (06/06/12 110) General Activity: 8 (06/06/121101) Mood: 10 (06/06/121101) [...] it until she had her follow-up v rosariot here. At home she continues to take [...] Fasciotomy Neurectomy foot Nerve block 03/18/11 & 05/12/11 Left lumbar sympathetic ganglion block Hemroidectomy Family [...] The Review of Systems obtained by the YOUTH PROBATION OFFICER was reviewed. Additional Review of Systems: Bones, [...] 719.46 Pain in joint, lower leg Ms. Northern is a 22 y.o. female who is following up with Dr. Dale Cantu at the [facility] today for left foot CRPS which [...] therapy Homer Elaine MD Pain Medicine Fellow [facility] Clarinda Evelia Parsons - 11:07 AM PDTCMA History: [...]
--- OUTSIDE RECORDS SUMMARY | ~2020-06-28 | XMS | Encounter Summary ---
Demographics + + + | Address | [address] | | | [place] [address] | + + + | Home Phone [...] Team Providers + +------+ + | Care Political Consultant Name | Role | Phone | [...] Rd | | | | | | [place], [place] | | | | | | [address] | | | +--------+ + + + [...]
--- OUTSIDE RECORDS SUMMARY | ~2020-06-28 | XMS | Encounter Summary ---
Demographics + + + | Address | [address] | | | [place] [address] | + + + | Home Phone [...] Providers + +------+ + | Care Fire Alarm Inspector Name | Role | Phone | [...] with nausea | [address] | [address] [place], | | | | | Complex | Rd | [place] | | | | | regional | [place], [place] | [address] | | | | | pain | [address] | Phone: | | | | | syndrome | Phone: | [phone] | | | | | type 1 of | [phone] | Fax: | | | | | left lower | Fax: | [phone] | | | | | extremity | [phone] | | | | | | Procedures [...] | | | | | unspecified | [facility] | [address] | | | | | location | Rd | [facility] | | | | | Procedures | [place], [place] | Rd [place], | | | | | CONSULT TO | [address] | [place] | | | | | PAIN | | [address] | | | | | MANAGEMENT | | Phone: | | | | | | | [phone] | | | | | | | Fax: | | | | | | | [phone] | +--------+--------+ + + + + Encounter Details +--------+---------+ + + + | Date | Type | Department | Care Team | Description | +--------+---------+ + + + | 04/19/ | Office | [facility] | Alex Sanchez, | Intractable cyclical | | 2018 | Visit | Pain Center at | ,PhD [address] | vomiting with | | | | [facility] | [address] | nausea (Primary Dx); | | | | [address] | [place], [place] | 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 [facility] Return Visit Date: 04/20/2018 Chief Complaint Patient presents with Abdominal pain Back pain Pain in left leg History of Present Illness: Tracie Farah is a 27 year old female, whose last appoi ntment at the [facility] was 12/27/2017, for a [...] not help for the abdominal pain). PAINBRIEF: [facility] Brief Pain Inventory: (ten= worst possible [...] Hemroidectomy Trial spinal cord stimulator leads 08/02/2012 [facility], Surgeon: Janak Riojas MD [...] History Social History Narrative Single. Goes to [email or web address] college with a light load. 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 Has roommates. Allergies Allergen Reactions Morphine Anaphylaxis [...] by physician. Concentration is 150mg/mL. Compounded by [facility] ) KETOROLAC IM Inject into the [...] GRAM-5.86 GRAM SOLUTION Take as directed by [facility] Digestive Health- 2 gallon bowel prep [...] to her by Christie Madrid MD in [place], [place]. As she chowdhury s since left the practice, Ms. Farah no longer has a prescriber for this medication. At [facility], we typically do not provide [...] unclear etiology. [facility] and is greatly helped by Toradol, antiemetics [...] Follow up as needed Alex Sanchez MD,PhD [facility] 3 :41 PM PDTSmithCharline MA [...]
--- OUTSIDE RECORDS SUMMARY | ~2020-06-28 | XMS | Encounter Summary ---
Demographics + + + | Address | [address] | | | [place] [address] | + + + | Home Phone [...] Team Providers + +------+ + | Care Ed Case Manager Name | Role | Phone | [...]
--- OUTSIDE RECORDS SUMMARY | ~2020-06-28 | XMS | Encounter Summary ---
Demographics + + + | Address | [address] | | | [place] [address] | + + + | Home Phone | | + + + | Preferred Language | Unknown | + + + | Marital Status | Single | + + + | Jainism Affiliation | FMD | + + + [...] Team Providers + +------+ + | Care Condenser Cleaner Name | Role | Phone | [...] | Telephone | Digestive Health | Kenny Gasapr MD | Pain | | 2016 | | Center [place] [address] [address] | | | | | | [address] [facility] | | | | | | for Health and | | | | | | Healing, Building [address] | | | | | | [place], [place] | | | | | | [address] | | | | | | [phone] | | | +--------+ + + + [...]
--- OUTSIDE RECORDS SUMMARY | ~2020-06-28 | XMS | Encounter Summary ---
Demographics + + + | Address | [address] | | | [place] [address] | + + + | Home Phone [...] Team Providers + +------+ + | Care Student Driving Instructor Name | Role | Phone | [...] on | Pain Center at | [address] [facility] | evaluation (No | | | | [facility] | [facility] [id number] | evidence of drug | | | | [address] | [place], [place] | abuse) | | | | [facility] | [address] | | | | | and Healing, | [phone] | | | | | [facility] | | | | | | Floor [place], [place] | | | | | | [address] | | | | | | [phone] | | | +--------+ + + + [...]
--- OUTSIDE RECORDS SUMMARY | ~2020-06-28 | XMS | Encounter Summary ---
Demographics + + + | Address | [address] | | | [place] [address] | + + + | Home Phone [...] Team Providers + +------+ + | Care Crown Wheel Assembler Name | Role | Phone | [...] info ) | | 2016 | | Center at [facility] [address] | MD Melissa | | | | | [address] | | | | | | for Health and | | | | | | Healing, Building [address] | | | | | | [place], [place] | | | | | | [address] | | | | | | [phone] | | | +--------+ + + + [...]
--- OUTSIDE RECORDS SUMMARY | ~2020-06-28 | XMS | Encounter Summary ---
Demographics + + + | Address | [address] | | | [place] [address] | + + + | Home Phone [...] Team Providers + +------+ + | Care Software Firmware Engineer Name | Role | Phone | + +------+ + | Jsuto Vazquez MD | PCP | | + +------+ + Reason for Visit + + + | Reason | Comments | + + + | Refill Request | | + + + Encounter Details +--------+--------+ + + + | Date | Type | Department | Care Team | Description | +--------+--------+ + + + | 10/30/ | Refill | [facility] Comprehensive | Alex Sanchez, | Refill Request | | 2018 | | Pain Center at | ,PhD [address] [facility] | | | | | [facility] | [address] | | | | | [address] | [place], [place] | | | | | [facility] | [address] | | | | | and Martina, | [phone] | | | | | [facility] | | | | | | Floor [place], [place] | | | | | | [address] | | | | | | [phone] | | | +--------+--------+ + + + [...]
--- OUTSIDE RECORDS SUMMARY | ~2020-06-28 | XMS | Encounter Summary ---
Demographics + + + | Address | [address] | | | [place] [address] | + + + | Home Phone [...] Team Providers + +------+ + | Care Legal Cashier Name | Role | Phone | + [...] | Dale Martinez MD | [facility] [address] | | | | | (complex | [address] | Pavilion | | | | | regional | [address] | [address] | | | | | pain | [address] | [address], | | | | | syndrome), | [id number] | Basement | | | | | lower limb | [place], [place] | [place], [place] | | | | | Procedures | [address] | [address] | | | | | [place] BONE &/OR | Phone: | Phone: | | | | | JOINT | [phone] | [phone] | | | | | IMAGING 3 | Fax: | Fax: | | | | | PHASE | [phone] | [phone] | +--------+--------+ + + + + Consult [...] | | | Management | CRPS | Allegar Nieto, | Dale Martinez MD | | | | | (complex | [place] | [address] | | | | | regional | [place] | [address] | | | | | pain | FAMILY | [address] | | | | | syndrome), | MEDICINE P | [id number] | | | | | lower limb | [address] | [place], [place] | | | | | Gait | [place], | [address] | | | | | disturbance | [place] [address] | Phone: | | | | | Muscle pain | Phone: | [phone] | | | | | Procedures | [phone] | Fax: | | | | | REQUEST TO | Fax: | [phone] | | | | | SURGERY | [phone] | | | | | | COAT TAILOR | | | +--------+--------+ + + + + Consultation (Routine) +--------+--------+ + + + + | Status | Reason | Specialty | Diagnoses / | Referred By | Referred To | | | | | Procedures | Contact | Contact | +--------+--------+ + + + + | Closed | | Psychology / | Diagnoses | Beulah, | [facility] | | | | Pain | CRPS | Dale Martinez MD | [facility] [address] | | | | Management | (complex | [address] | | | | | regional | [address] | Center for | | | | | pain | Mailstop | Health and | | | | | syndrome), | [id number] | Healing, | | | | | lower limb | [place], [place] | Building | | | | | Gait | [address] | 1,15th Floor | | | | | disturbance | Phone: | [place], [place] | | | | | Muscle pain | [phone] | [address] | | | | | Procedures | Fax: | Phone: | | | | | CONSULT TO | [phone] | [phone] | | | | | PAIN CENTER | | Fax: | | | | | | | [phone] | +--------+--------+ + + + + Physical Therapy (Routine) +--------+--------+ + + + + | Status | Reason | Specialty | Diagnoses / | Referred By | Referred To | | | | | Procedures | Contact | Contact | +--------+--------+ + + + + | Closed | | Physical | Diagnoses | Beulah, | [facility] | | | | Therapy | CRPS | Dale Martinez MD | [facility] [address] | | | | | (complex | [address] | | | | | regional | [address] | Mailcode: | | | | | pain | Mailstop | [facility] | | | | | syndrome), | [id number] | for Health | | | | | lower limb | [place], [place] | and Healing, | | | | | Gait | [address] | 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 | FAMILY | [address] | | | | | of lower | MEDICINE P | [address] | | | | | limb | [address] | [place], [place] | | | | | | [place], | [address] | | | | | | [place] [address] | Phone: | | | | | | Phone: | [phone] | | | | | | [phone] | Fax: | | | | | | Fax: | [phone] | | | | | | [phone] | | +--------+--------+ + + + + Encounter Details +--------+---------+ + + + | Date | Type | Department | Care Team | Description | +--------+---------+ + + + | 02/13/ | Office | [facility] | Dale Cantu, | CRPS (complex | | 2011 | Visit | Pain Center at | MD [address] | regional pain | | | | [facility] | [facility] [address] | syndrome), lower | | | | [address] | [place], [place] | limb; Gait | | | | Center for Health | [address] | disturbance; Muscle | | | | and Healing, | [phone] | pain; Adjustment | | | | | | reaction | | | | Floor [place], [place] | | | | | | [address] | | | | | | [phone] | | | +--------+---------+ + + + [...] Diagnostic evaluation: Records from CRPS program at [facility]. 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 2. [...] employed by [facility]. 2.2 Physical therapy can reduce pain and improve functional status. Suggest Guillermo Sanon . 3. Medication suggestions: 3.1 Continue titrating up duloxetine. 3.2 As for any patient being managed with chronic opioids, we do recommend that the patien t have a signed [facility] Material Risk Notice, agree to whatever [...] sintia sure this is scheduled with the International Tax Manager. Please bring a long haul truck driver with you. We may give you medications that make you drowsy or otherw ise unsafe to drive. If you do not have a long haul truck driver, we will not be able to do your procedure. DO NOT EAT ANYTHING AFTER MIDNIGHT If your appointment is after 1 PM , you may have a very light, low fat breakfast, such as h chcf a piece of dry toast or a [...] PLEASE CONTACT THE COMPREHENSIVE PAIN CENTER AT [phone] ([phone]) FOR QUESTIONS OR IF YOU NEED TO CANCEL YOUR APPOINTMENT. [facility] Comprehensive Pain Center documented in this encounter [...] pain management consultation by BJORN Mi [place] [facility] MEDICINE [address] [place] [address] Reason for visit Chief Complaint Patient presents with Pain in left leg Ankle pain left History of Present Illness: Tracie Farah is a 21 year old female with pain locate d in left lower extremity. She has been diagnosed with CRPS. She is referred to [facility] for consultation regarding this ongoing pain problem with the following spec [facility] issues to be addressed: Other options for [...] by several orthopedic surgeons, Dr. Charles in [place], physical therapy, Occupational Therapy. Diagnostic and radiologic [...] no pain relief. Admitted to the inpatient [facility] program for 1 month in [...] entin, pregabalin, topiramate, tramadol, multiple opioids. Current [place] about 6-8/day. St arting duloxetine, at 30 mg/day. She feels that the most effective medication treatments ar e or have been opioids. As a result of her pain, Ms. Farah notes multiple changes in her life, including: "I don 't have a life, can't work, can't go to school." Poor mood, sleep, activity. Using crutche s recently because of pain flare. VISUAL INSPECTOR Brief Pain Inventory: (ten= worst possible [...] History Social History Narrative Single. Goes to [employer] with a light load. Has been working at [employer], can' t work on [employer]. Has roommates. Current Medication List 02/14/12 9:50 [...] Anaphylaxis As part of today's visit the [facility] new patient questionnaire was review [...] compartment syndrome, physical therapy, mirror therapy, psychological counse rambo, the pediatric inpatient pain program at [facility], and two attempted lumbar sympathetic blocks. [...] CRPS patients (Loretta Rousseau, et al. Katrina Product Controller Med. 2010;152: 152-158). Other treatment options for the future: Spinal cord stimulation (SCS) has good evidence f or providing retirement relief in CRPS (Complex Regional Pain Syndrome) [...] [facility]: [facility] Suggest three ph ase bone scan-- [...] the psychologists here at the [facility]. ORDER PLACED 2.2 Physical therapy can reduce pain and improve functional status. Suggest Guillermo Sanon . ORDER PLACED 3. Medication suggestions: 3.1 Continue titrating up duloxetine. 3.2 As for any patient being managed with chronic opioids, we do recommend that the patien t have a signed [facility] Material Risk Notice, agree to whatever [...] her PCP, BJORN Villanueva. DALE CANTU MD [place] Clerk, [facility] Melangeur Operator, Pain Medicine Professor, Anesthesiology & Perioperative [...] | | + +---------+ + + | [facility] DEPARTMENT OF | | | | | [...]
--- OUTSIDE RECORDS SUMMARY | ~2020-06-28 | XMS | Encounter Summary ---
Demographics + + + | Address | [address] | | | [place] [address] | + + + | Home Phone [...] Team Providers + +------+ + | Care House Designer Name | Role | Phone | [...] | | Complex | [place], | [facility] [address] | | | | | regional | ,PhD [address] | Pavilion | | | | | pain | [address] | | | | | syndrome | [address] | [address], | | | | | type 1 of | Rd | Basement | | | | | left lower | [place], [place] | [place], [place] | | | | | extremity | [address] | [address] | | | | | Muscle pain | Phone: | Phone: | | | | | Procedures | [phone] | [phone] | | | | | NM BONE | Fax: | Fax: | | | | | &/OR JOINT | [phone] | [phone] | | | | | IMAGING | [...] | | | | | | DE BONE | | | | | | | IMAGING, | | | | | | | LIMITED AREA | | | | | | | DE BONE | | | | | | [...] | | 2018 | Encounter | at [facility] [address] | ,PhD [address] [facility] | | | | | [address] | [address] | | | | | [address], | [place], [place] | | | | | [facility], | [address] | | | | | [place] [address] | [phone] | | | | | [phone] | | | +--------+ + + + [...]
--- OUTSIDE RECORDS SUMMARY | ~2020-06-28 | XMS | Encounter Summary ---
Demographics + + + | Address | [address] | | | [place] [address] | + + + | Home Phone [...] Team Providers + +------+ + | Care Computer Teacher Name | Role | Phone | + +------+ + | Justo Vazquez MD | PCP | | + +------+ + Encounter Details +--------+ + + + + | Date | Type | Department | Care Team | Description | +--------+ + + + + | 12/27/ | Hospital | Diagnostic Imaging | Alex Sanchez, | | | 2018 | Encounter | Services [address] | ,PhD [address] | | | | | [address] | [facility] | | | | | [place], [place] | [place], [place] | | | | | [address] | [address] | | | | | | [phone] | | | | | | | [...] | + +--------+ + + + | AMBULANCE OFFICER MISC PROCEDURE | Routin | 12/27/2017 | Complex regional | Results for this | | | e | 3:28 PM | pain syndrome type 1 | procedure are in the | | | | PST | of left lower | results section. | | | | | extremity | | + +--------+ + + + documented in this encounter Results [facility] MISC PROCEDURE (12/27/2017 3:28 PM PST) + [...]
--- OUTSIDE RECORDS SUMMARY | ~2020-06-28 | XMS | Encounter Summary ---
Demographics + + + | Address | [address] | | | [place] [address] | + + + | Home Phone [...] Team Providers + +------+ + | Care Paper Baling Machine Operator Name | Role | Phone | + +------+ + | Justo Vazquez MD | PCP | | + +------+ + Reason for Visit +--------+ + | Reason | Comments | +--------+ + | Nausea | | +--------+ + Encounter Details +--------+ + + + + | Date | Type | Department | Care Team | Description | +--------+ + + + + | 09/26/ | Telephone | [facility] | Aleta Rebollar MD [address] | Nausea | | 2018 | | Pain Center at | [address] | | | | | [facility] | [place], [place] | | | | | [address] | [address] | | | | | [place] for Health | [phone] | | | | | and Healing, | | | | | | Building | | | | | | [place], [place] | | | | | | [address] | | | | | | [phone] | | | +--------+ + + + [...]
--- OUTSIDE RECORDS SUMMARY | ~2020-06-28 | XMS | Encounter Summary ---
Demographics + + + | Address | [address] | | | [place] [address] | + + + | Home Phone [...] Team Providers + +------+ + | Care Scroll Assembler Name | Role | Phone | [...] | | 2016 | | Center at [facility] [address] | | severe stomach Pain) | | | | [address] [facility] | | | | | | for Health and | | | | | | Healing, Building [address] | | | | | | [place], [place] | | | | | | [address] | | | | | | [phone] | | | +--------+ + + + [...]
--- OUTSIDE RECORDS SUMMARY | ~2020-06-28 | XMS | Encounter Summary ---
Demographics + + + | Address | [address] | | | [place] [address] | + + + | Home Phone [...] Providers + +------+ + | Care Aircraft Skin Burnisher Name | Role | Phone | + +------+ + | Justo Vazquez MD | PCP | | + +------+ + Encounter Details +--------+ + + + + | Date | Type | Department | Care Team | Description | +--------+ + + + + | 09/25/ | Hospital | Radiology/Imaging | Aleta Rebollar MD [address] | | | 2018 | Encounter | Lab at [facility] [address] | [address] | | | | | [address] [facility] for | [place], [place] | | | | | Health and Healing, | [address] | | | | | [address] | [phone] | | | | | Floor [place], [place] | | | | | | [address] | | | | | | [phone] | | | +--------+ + + + [...]
--- OUTSIDE RECORDS SUMMARY | ~2020-06-28 | XMS | Encounter Summary ---
Demographics + + + | Address | [address] | | | [place] [address] | + + + | Home Phone [...] + +------+ + | Care Critical Care Physician Assistant Name | Role | Phone | [...] | | | | | sympathetic | [place] | [address]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 | FAMILY | [employer] | | | | | of lower | MEDICINE P | [id number] | | | | | limb | [address] | [place], [place] | | | | | | [place], | [address] | | | | | | [place] [address] | Phone: | | | | | | Phone: | [phone] | | | | | | [phone] | Fax: | | | | | | Fax: | [phone] | | | | | | [phone] | | +--------+--------+ + + + + Encounter Details +--------+---------+ + + + | Date | Type | Department | Care Team | Description | +--------+---------+ + + + | 08/04/ | Office | [facility] | Dale Cantu, | CRPS (complex | | 2011 | Visit | Pain Center at | MD [address] [facility] | regional pain | | | | [facility] | [facility] [id number] | syndrome), lower | | | | [address] | [place], [place] | limb (Primary Dx) | | | | [facility] | [address] | | | | | and Healing, | [phone] | | | | | Building | | | | | | Floor [place], [place] | | | | | | [address] | | | | | | [phone] | | | +--------+---------+ + + + [...] evaluated the patient with Fellow Nhan Guo [facility], who conducted the initial history. I reviewed the history in det ail and edited his note. I was present for the examination and formulation portions of the encounter. I agree with the findings and the plan of care as documented in our notes. DALE CANTU MD Shrimp Packer, [facility] Invoice Clerk, Pain Medicine Professor, Anesthesiology & Perioperative Medicine [...] physical activity and social withdrawal enok Gutierrez, [facility] - 08/04/2012 7:25 AM PDTFormatting of this note might be different from the origi nal. [facility] Pain [facility] Return Visit with Dr. [...] has been treated at the [facility] for lower limb pain with the following [...] and a pain drawing which I reviewed. [facility] Brief Pain Inventory: (ten= worst possible [...] The Review of Systems obtained by the [facility] was reviewed. Additional Review of Systems: 1. [...] multiple programs with both [facility] programs, however it appears that it [...] bath today, OK to shower. HENOK GUO [facility] documented in this en counter Plan of Treatment Not on filedocumented as of this encounter Visit Diagnoses + + | Diagnosis | + + | CRPS (complex regional pain syndrome), lower limb - Primary Causalgia of lower limb | + + documented in this encounter
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
--- OUTSIDE RECORDS SUMMARY | ~2020-06-28 | XMS | Encounter Summary ---
Demographics + + + | Address | [address] | | | [place] [address] | + + + | Home Phone [...] Team Providers + +------+ + | Care Salesperson New Cars Name | Role | Phone | + [...] Pain Medicine | Diagnoses | Chasity | Depilatory Painter Chh1 | | | | / Pain | Abdominal | MD Kenny | [address] | | | | Management | pain, | [address] | [facility] | | | | | unspecified | [facility] | for Health | | | | | location | Rd | and Healing, | | | | | Procedures | [place], [place] | Building | | | | | CONSULT TO | [address] | 1,15th Floor | | | | | PAIN | | [place], [place] | | | | | MANAGEMENT | | [address] | | | | | | | Phone: | | | | | | | [phone] | | | | | | | Fax: | | | | | | | [phone] | +--------+--------+ + + + + Encounter Details +--------+---------+ + + + | Date | Type | Department | Care Team | Description | +--------+---------+ + + + | 07/11/ | Office | [facility] | Ilene Bright, | Pain of upper | | 2017 | Visit | Pain Center at | WOODWORKER HELPER [address] | abdomen (Primary | | | | [place] | [place], [place] | Dx); Intractable | | | | [address] | [address] | cyclical vomiting | | | | [facility] | [phone] | with nausea; | | | | and Healing, | | Irritable bowel | | | | Building | | syndrome with | | | | Floor [place], [place] | | constipation; | | | | [address] | | Complex regional | | | | [phone] | | pain syndrome type 1 | [...] and determine next steps. Ilene Childs DNP, WOODWORKER HELPER-C Adult Pain Service /[facility] [address] [place] [address] documented in this encounter Progress Notes Ilene Bright FNP - 07/11/2017 1:35 PM PDTFormatting of this note might be different fr om the original. [facility] Return Visit Date: 07/11/2017 Chief Complaint Patient presents with Abdominal pain Back pain History of Present Illness: Tracie Farah is a 27 year old female, whose last appoi ntment at the [facility] was April 25, 2017, for [...] in the process of [facility]. She has also changed [...] her abdominal pain an d associated symptoms. [facility] QUESTIONNAIRE BRIEF PAIN 07/11/2017 Please rate [...] has interfered with your sleep : 5 BLUE LINE TRIMMER Questionnaire Follow-up Patient 07/11/2017 Please describe the [...] History Social History Narrative Single. Goes to [employer] with a light load. Has been working at [employer], can' t work on [employer]. Has roommates. Allergies Allergen Reactions Morphine Anaphylaxis [...] by physician. Concentration is 150mg/mL. Compounded by [facility] ) LAMOTRIGINE 200 MG TABLET Take [...] GRAM-5.86 GRAM SOLUTION Take as directed by [facility]- 2 gallon bowel prep POLYETHYLENE [...] and summary of old medical records (source: [employer]), as summarized in the body of the [...] Shantel Salinas, am functioning as a medical assistant per diem for TERESA Clark DNP-C I have reviewed and verified the above scribed note of my visit with this patient as record ed by Shantel Salinas. Ilene Childs DNP, TERESA-C Adult Pain Service /[facility] [address] [place] [address] Addendum: I paged Dr. Les Gaspar. He was out of the clinic, I spoke with the covering provider and sha dandre Tracie's request for food allergy testing. Since Tracie thinks her pain and vomiting may b e triggered by gluten, covering provided ordered appropriate workup, which I communicated to Tracie and the the lab in [place], [place]. She will followup with me and GI once these results are available. Ilene Childs DNP, WOODWORKER HELPER-C Adult Pain Service /[facility] [address] [place] [address] documented in this e ncounter Plan of [...]
--- OUTSIDE RECORDS SUMMARY | ~2020-06-28 | XMS | Encounter Summary ---
Demographics + + + | Address | [address] | | | [place] [address] | + + + | Home Phone [...] Team Providers + +------+ + | Care Co Founder & Ceo Name | Role | Phone | + +------+ + | Allegra Gandhi | PCP | | + +------+ + Encounter Details +--------+ + + + + | Date | Type | Department | Care Team | Description | +--------+ + + + + | 08/02/ | Results | [facility] | Janak Riojas, | | | 2011 | Only | Pain Center at | MD [address] [facility] | | | | | [facility] | [facility] [id number] | | | | | [address] | [place], [place] | | | | | Center for Health | [address] | | | | | and Martian, | [phone] | | | | | | | | | | | Floor [place], [place] | | | | | | [address] | | | | | | [phone] | | | +--------+ + + + [...]
--- OUTSIDE RECORDS SUMMARY | ~2020-06-28 | XMS | Encounter Summary ---
Demographics + + + | Address | [address] | | | [place] [address] | + + + | Home Phone [...] Team Providers + +------+ + | Care Bi Manager Name | Role | Phone | [...] | | Pain | Complex | Ilene, TERRITORY DEVELOPMENT MANAGER | Hanna M, | | | | Management | regional | [address] | PSY D [address] | | | | | pain | [address] | [address] | | | | | syndrome | [place], [place] | [place], [place] | | | | | type 1 of | [address] | [address] Phone: | | | | | left lower | Phone: | [phone] | | | | | extremity | [phone] | Fax: | | | | | Intractable | Fax: | [phone] | | | | | cyclical | [phone] | | | | | | vomiting [...] | | | | | | | [place] | | | | | | | PSYCHIATRIC | | | | | | | DIAGNOSTIC | | | | | | | EVAL, NO MED | | | | | | | [place]CS [place] | | | | | | | PSYCH TSTNG | | | | | | | PSYCH/PHYS | | | | | | | [place] | | | | | | | [...] Pain Medicine | Diagnoses | Chasity, | Bobbin Stripper Chh1 | | | | / Pain | Abdominal | MD Kenyn | [address] | | | | Management | pain, | [address] [facility] | [facility] | | | | | unspecified | [facility] | for Health | | | | | location | Rd | and Healing, | | | | | Procedures | [place], [place] | [facility] | | | | | CONSULT TO | [address] | 1,15th Floor | | | | | PAIN | | [facility] [place] | | | | | MANAGEMENT | | [address] | | | | | | | Phone: | | | | | | | [phone] | | | | | | | Fax: | | | | | | | [phone] | +--------+--------+ + + + + Encounter Details +--------+---------+ + + + | Date | Type | Department | Care Team | Description | +--------+---------+ + + + | 04/25/ | Office | [facility] | Ilene Bright, | Abdominal pain, | | 2017 | Visit | Pain Center at | TERRITORY DEVELOPMENT MANAGER [address] | unspecified location | | | | [facility] | [place], [place] | (Primary Dx); | | | | [address] | [address] | Complex regional | | | | [place] for [facility] | [phone] | pain syndrome type 1 | | | | and Healing, | | of left lower | | | | Building 1,15 | | extremity; | | | | Floor [place], [place] | | Intractable cyclical | | | | [address] | | vomiting with | | | | [phone] | | nausea; | | | | [...] encounter Patient Instructions Patient Instructions Ilene Bright, TERRITORY DEVELOPMENT MANAGER - 04/25/2017 1:35 PM PDTKelly, Nice to [...] Freddie Guadalupe MD [email or web address] Ilene Childs DNP, TERRITORY DEVELOPMENT MANAGER-C Adult Pain Service /[facility] [address] [place] [address] documented in this encounter Progress Notes Ilene Bright FNP - 04/25/2017 1:35 PM PDTFormatting of this note might be different fr om the original. Date: 04/25/2017 was referred for pain management consultation by Kenny Gaspar MD [address] [place] [address] Reason for consult: abdominal pain Chief Complaint Patient presents with Abdominal pain Back pain History of Present Illness: Tracie Farah is a 26 year old female with a history of depression, complex regional pain syndrome (left lower extremity) for this she follows with a neurologist at [facility] in [facility]. She has been stable on her [...] (works better) Just started her on Celebrex (senior living option) Intranasal ketamine Lamotrigine Memantine Ibuprofen Cymbalta 20 mg BID Cyclobenzaprine Her nonmedication treatment has not included acupuncture, etc due to limited income. She feels that the most effective treatments include: medication (toradol). lives in [place], [place] alone and with her children. She receives disability. does not have specific goals for today's appointment. [facility] QUESTIONNAIRE BRIEF PAIN 04/24/2017 Please rate how [...] has interfered with your sleep : 8 [facility] New Patient Questionnaire Responses 04/24/2017 What is [...] or to get rid of a hangover (eye-medical secretary)? No Do you drink alcohol to decrease [...] Hemroidectomy Trial spinal cord stimulator leads 08/02/2012 [facility], Surgeon: Janak Riojas MD Cholecystectomy Appendectomy [...] History Social History Narrative Single. Goes to [employer] with a light load. Has been working at [employer], can' t work on [employer]. Has roommates. Allergies Allergen Reactions Morphine Anaphylaxis [...] by physician. Concentration is 150mg/mL. Compounded by [facility] ) LAMOTRIGINE 200 MG TABLET Take [...] ENTEROGRAPHY ABDOMEN AND PELVIS WWO CONTRAST Order: [id number] Performed: 01/31/2017 4:34 PM Status: Final result [...] 3:50 PM X-RAY ABDOMEN 1 VIEW Order: [id number] Performed: 03/19/2017 6:52 AM Status: Final result [...] and summary of old medical records (source: [employer]), as summarized in the body of the [...] possible opioid-sparing effects (Stevie Paulino et al.C [employer], (8):1655-70, 2007) and evidence that it can [...] TERESA-C Adult Pain Service /[facility] [address] [place] [address] Display Progress Note in MyChart: No documented [...]
--- OUTSIDE RECORDS SUMMARY | ~2020-06-28 | XMS | Encounter Summary ---
Demographics + + + | Address | [address] | | | [place] [address] | + + + | Home Phone [...] Providers + +------+ + | Care Sanitation Lead Name | Role | Phone | + [...] | Request (ketamine) | | | | [facility] | [address] | | | | | [address] | [place], [place] | | | | | [facility] | [address] | | | | | and Healing, | [phone] | | | | | | | | | | | Floor [place], [place] | | | | | | [address] | | | | | | [phone] | | | +--------+ + + + [...]
--- OUTSIDE RECORDS SUMMARY | ~2020-06-28 | XMS | Encounter Summary ---
Demographics + + + | Address | [address] | | | [place] [address] | + + + | Home Phone [...] Team Providers + +------+ + | Care Rotary Derrick Operator Name | Role | Phone | [...] Closed | | Orthopedics | Diagnoses | Sdrulla, | Rabun, | | | | | Complex | Alex Alba, | Ranjeet Odom MD | | | | | regional | ,PhD [address] | [address] | | | | | pain | [address] | [address] | | | | | syndrome | [address] [address] | [place], [place] | | | | | type 1 of | Rd | [address] | | | | | left lower | [place], [place] | Phone: | | | | | extremity | [address] | [phone] | | | | | Procedures | Phone: | Fax: | | | | | CONSULT TO | [phone] | [phone] | | | | | ORTHOPEDICS | Fax: | | | | | | AND | [phone] | | | | | | REHABILITATI | | | | | | | ON | | | +--------+--------+ + + + + Reason for Visit + + + | Reason | Comments | + + + | Imaging Review | xray ankle results | + + + Encounter Details +--------+ + + + + | Date | Type | Department | Care Team | Description | +--------+ + + + + | 01/03/ | Telephone | KEVIN Odom | Alex Sanchez, | Imaging Review (xray | | 2018 | | Pain Center at | ,PhD [address] | ankle results) | | | | [facility] | [address] | | | | | [address] | [place], [place] | | | | | [facility] | [address] | | | | | and Healing, | [phone] | | | | | | | | | | | Floor [place], [place] | | | | | | [address] | | | | | | [phone] | | | +--------+ + + + [...]
--- OUTSIDE RECORDS SUMMARY | ~2020-06-28 | XMS | Encounter Summary ---
Demographics + + + | Address | [address] | | | [place] [address] | + + + | Home Phone [...] Team Providers + +------+ + | Care Extrusion Process Operator Name | Role | Phone | [...] + + | 10/06/ | Telephone | [facility] Comprehensive | Yosef Kenney MD | Dermatitis | | 2018 | | Pain Center at | [address] | | | | | [facility] | [facility] | | | | | [address] | [place] [address] | | | | | [facility] | [phone] | | | | | and Healing, | | | | | | [facility] | | | | | | [place], [place] | | | | | | [address] | | | | | | [phone] | | | +--------+ + + + [...]
--- OUTSIDE RECORDS SUMMARY | ~2020-06-28 | XMS | Encounter Summary ---
Demographics + + + | Address | [address] | | | [place] [address] | + + + | Home Phone [...] Team Providers + +------+ + | Care Electrocardiograph Operator Name | Role | Phone | + +------+ + | Justo Vazquez MD | PCP | | + +------+ + Encounter Details +--------+ + + + + | Date | Type | Department | Care Team | Description | +--------+ + + + + | 03/12/ | Vegetable Trimmer | [facility] Comprehensive | Alex Sanchez, | Complex regional | | 2019 | | Pain Center at | ,PhD [address] [facility] | pain syndrome type 1 | | | | [facility] | [address] | of left lower | | | | [address] | [place], [place] | extremity; S/P | | | | [facility] | [address] | insertion of spinal | | | | and Healing, | [phone] | cord stimulator | | | | | | | | | | Floor [place], [place] | | | | | | [address] | | | | | | [phone] | | | +--------+ + + + [...]
--- OUTSIDE RECORDS SUMMARY | ~2020-06-28 | XMS | Encounter Summary ---
Demographics + + + | Address | [address] | | | [place] [address] | + + + | Home Phone [...] Providers + +------+ + | Care Meter Shop Supervisor Name | Role | Phone [...] | | | | | extremity | [address] | [address] | | | | | Procedures | Phone: | Phone: | | | | | REQUEST TO | [phone] | [phone] | | | | | SURGERY | Fax: | Fax: | | | | | SLOT SHIFT SUPERVISOR | [phone] | [phone] | +--------+---------+ + + + + Encounter Details +--------+---------+ + + + | Date | Type | Department | Care Team | Description | +--------+---------+ + + + | 12/22/ | Office | [facility] Comprehensive | Ilene Bright, | Complex regional | | 2019 | Visit | Pain Center at | CHEMICAL PROCESSING SUPERVISOR [address] | pain syndrome type 1 | | | | [facility] | [place], [place] | of left lower | | | | [address] | [address] | extremity; S/P | | | | [place] [facility] | [phone] | insertion of spinal | | | | and Healing, | | cord stimulator | | | | Building | | | | | | Floor [place], [place] | | | | | | [address] | | | | | | [phone] | | | +--------+---------+ + + + [...] fo r your reference. - The [place] guest experience representative met with you and made adjustments to your stimulator. I spoke w ith the guest experience representative and she is happy with your [...] call this prescription into the [facility] in [place]. It was great to see you again, documented in this encounter Progress Notes Ilene Bright, CHEMICAL PROCESSING SUPERVISOR - 12/22/2018 11:00 AM PSTFormatting of this note might be different fr om the original. [facility] Return Visit Date: 12/22/2018 Chief Complaint Patient presents with Low back pain Pain in left leg History of Present Illness: Tracie Farah is a 28 year old female, whose last appoi ntment at the [facility] Center was 12/07/2018 following her [...] order to tolerate her incision site pain. SHEETROCK APPLICATOR Brief Pain Inventory: (ten= worst possible pain [...] Hemroidectomy Trial spinal cord stimulator leads 08/02/2012 [facility], Surgeon: Janak Riojas MD Cholecystectomy [...] History Social History Narrative Single. Goes to [employer] with a light load. Has been working at [employer], can' t work on [employer]. Has roommates. Allergies Allergen Reactions Morphine [...] GRAM-5.86 GRAM SOLUTION Take as directed by [facility] Digestive Health- 2 gallon bowel [...] with nausea Abdominal pain Abdominal scar neuroma [facility] CLINICAL PROTOCOL PATIENT (CLNPRO) - Implanted Spinal [...] and summary of old medical records (source: [facility], [facility] Everywhere), as summarized [...] taking for her surgical incision. The [facility] guest experience representative visited the patient in order to make minor adjustments. She adjusted the leads and is happy with Ms. Fraah's progress. Ms. Farah is due to run [...] ed by Collin Salomon. Ilene Childs DNP, CHEMICAL PROCESSING SUPERVISOR-C Adult Pain [facility] [address] [place] [address] mith, Charline Torres MA - 12/22/2018 11:00 [...]
--- OUTSIDE RECORDS SUMMARY | ~2020-06-28 | XMS | Encounter Summary ---
Demographics + + + | Address | [address] | | | [place] [address] | + + + | Home Phone [...] Providers + +------+ + | Care Manager Council Name | Role | Phone | + [...] | CRPS | Janak Martinez MD | [facility] [address] | | | | | (complex | [address] | Pavilion | | | | | regional | [address] | [address] | | | | | pain | Mailstop | [address], | | | | | syndrome), | [address] | Basement | | | | | lower limb | [place], [place] | [place], [place] | | | | | Procedures | [address] | [address] | | | | | [place] BONE &/[place] | Phone: | Phone: | | | | | JOINT | [phone] | [phone] | | | | | IMAGING 3 | Fax: | Fax: | | | | | PHASE | [phone] | [phone] | +--------+--------+ + + + + Encounter Details +--------+ + + + + | Date | Type | Department | Care Team | Description | +--------+ + + + + | 02/13/ | Hospital | Nuclear Medicine | | | | 2011 | Encounter | at [facility] [address] | | | | | | [address] | | | | | | [address], | | | | | | Narayan [place], | | | | | | [place] [address] | | | | | | [phone] | | | +--------+ + + + [...]
--- OUTSIDE RECORDS SUMMARY | ~2020-06-28 | XMS | Encounter Summary ---
Demographics + + + | Address | [address] | | | [place] [address] | + + + | Home Phone [...] Team Providers + +------+ + | Care Program Director Air Talent Name | Role | Phone | + [...] | Diagnoses | Beulah | Edu Pt Jeweler Apprentice | | | | Therapy | CRPS | Janak Martinez MD | [facility] [address] | | | | | (complex | [address] | | | | | regional | [address] | Mailcode: | | | | | pain | Mailstop | [facility] | | | | | syndrome), | [id number] | for Health | | | | | lower limb | [place], [place] | and Healing, | | | | | Gait | [address] | Building 1 | | | | | disturbance | Phone: | [place], [place] | | | | | Muscle pain | [phone] | [address] | | | | | Procedures | Fax: | Phone: | | | | | PHYSICAL | [phone] | [phone] | | | | | THERAPY | [...] | | | | [address] | [place] [address] | syndrome), lower | | | | [address] | [phone] | limb (Primary Dx) | | | | [facility] | | | | | | and Healing, | | | | | | Building 1, | | | | | | Floor [place], [place] | | | | | | [address] | | | | | | [phone] | | | +--------+---------+ + + + [...] might be different f rom the original. [id number] BRODY FARAH Date of : 1990 Start of care: 02/14/2012 Date of onset: 02/14/2012 Referring/Attending Practitioner: Janak Riojas MD . Primary/Referral Diagnosis/ICD-9: 355.71B CRPS (complex regional pain syndrome), lower limb Insurance: Payor: [facility] [employer] [facility] Plan: BCBS OUT OF STATE Product Type: PP O Service period from: 02/14/2012 to: 08/12/2012 Number visits used/authorized: 12/26 [facility] PHYSICAL THERAPY PROGRESS NOTE SUBJECTIVE: Age: 21 y.o. Sex: female Chief complaint: No chief complaint on file. 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 She is [facility] much [facility], possibly because she finished school and so has less stress. She stopped using crutch es in early April (18 days ago) which is less stressful. Now she is working at [employer] 2-3 hours per week, and spends [...] sometimes pain meds. Social History: lives in [place], 22 years old, not working currently, in [...] or concerns about therapy: she lives in [place]. She is r equesting family members or [...] change in their status. Guillermo Sanon MSPBren [facility] Outpatient Rehabilitation Services Mailcode: Ch3p [address] [facility] [facility] [address] documented in this encounter Plan of Treatment Not on filedocumented as of this encounter Procedures + +--------+ + + + | Procedure Name | Priori | Date/Time | Associated Diagnosis | Comments | | | ty | | | | + +--------+ + + + | ND THERAPEUTIC | Routin | 05/03/2012 | CRPS [...]
--- OUTSIDE RECORDS SUMMARY | ~2020-06-28 | XMS | Encounter Summary ---
Demographics + + + | Address | [address] | | | [place] [address] | + + + | Home Phone [...] Team Providers + +------+ + | Care Cytopathology Technologist Name | Role | Phone | [...] Pain Medicine | Diagnoses | Chasity | Casino Shift Manager Chh1 | | | | / Pain | Abdominal | MD Kenny | [address] | | | | Management | pain, | [address] | [facility] | | | | | unspecified | [facility] | for Health | | | | | location | Rd | and Healing, | | | | | Procedures | [place], [place] | Building | | | | | CONSULT TO | [address] | 1,15th Floor | | | | | PAIN | | [place], [place] | | | | | MANAGEMENT | | [address] | | | | | | | Phone: | | | | | | | [phone] | | | | | | | Fax: | | | | | | | [phone] | +--------+--------+ + + + + Encounter Details +--------+---------+ + + + | Date | Type | Department | Care Team | Description | +--------+---------+ + + + | 07/11/ | Office | [facility] Comprehensive | Ilene Bright, | Pain of upper | | 2017 | Visit | Pain Center at | WEB METHODS DEVELOPER [address] | abdomen (Primary | | | | [place] | [place], [place] | Dx); Intractable | | | | [address] | [address] | cyclical vomiting | | | | [facility] | [phone] | with nausea; | | | | and Healing, | | Irritable bowel | | | | Building | | syndrome with | | | | Floor [place], [place] | | constipation; | | | | [address] | | Complex regional | | | | [phone] | | pain syndrome type 1 | [...] and determine next steps. Ilene Childs DNP, WEB METHODS DEVELOPER-C Adult Pain Service /[facility] Center [address] [place] [address] documented in this encounter Progress Notes Ilene Bright FNP - 07/11/2017 1:35 PM PDTFormatting of this note might be different fr om the original. [facility] Center Return Visit Date: 07/11/2017 Chief Complaint Patient presents with Abdominal pain Back pain History of Present Illness: Tracie Farah is a 27 year old female, whose last appoi ntment at the [facility] Pain Center was April 25, [...] in the process of [facility]. She has also changed [...] her abdominal pain an d associated symptoms. [facility] QUESTIONNAIRE BRIEF PAIN 07/11/2017 Please rate how [...] has interfered with your sleep : 5 MANAGER CODING Questionnaire Follow-up Patient 07/11/2017 Please describe the [...] History Social History Narrative Single. Goes to [employer] with a light load. Has been working at [employer], can' t work on [email or web address]. Has roommates. Allergies Allergen Reactions Morphine Anaphylaxis [...] by physician. Concentration is 150mg/mL. Compounded by [facility] ) LAMOTRIGINE 200 MG TABLET Take [...] GRAM-5.86 GRAM SOLUTION Take as directed by [facility] Digestive Health- 2 gallon bowel [...] and summary of old medical records (source: [employer]), as summarized in the body of [...] Shantel Salinas, am functioning as a medical technologist hematology for TERESA Clark DNP-C I have reviewed and verified the above scribed note of my visit with this patient as record ed by Shantel Salinas. Ilene Childs DNP, TERESA-C Adult Pain Service /[facility] [address] [place] [address] Addendum: I paged Dr. Les Gaspar. He was out of the clinic, I spoke with the covering provider and sha dandre Tracie's request for food allergy testing. Since Tracie thinks her pain and vomiting may b e triggered by gluten, covering provided ordered appropriate workup, which I communicated to Tracie and the the lab in [place], [place]. She will followup with me and GI once these results are available. Ilene Childs DNP, WEB METHODS DEVELOPER-C Adult Pain Service [facility] [address] [place] [address] documented in this e ncounter Plan of [...]
--- OUTSIDE RECORDS SUMMARY | ~2020-06-28 | XMS | Encounter Summary ---
Demographics + + + | Address | [address] | | | [place] [address] | + + + | Home Phone [...] + +------+ + | Care Senior Oracle Adf Developer Name | Role | Phone | + +------+ + | Justo Vazquez MD | PCP | | + +------+ + Encounter Details +--------+ + + + + | Date | Type | Department | Care Team | Description | +--------+ + + + + | 10/20/ | Telephone | [facility] | Ilene Bright, | | | 2017 | | Pain Center at | PREPARED FOODS ASSOCIATE [address] | | | | | [facility]Note [facility] | [place], [place] | | | | | [address] | [address] | | | | | [facility] | [phone] | | | | | and Healing, | | | | | | | | | | | | Floor [place], [place] | | | | | | [address] | | | | | | [phone] | | | +--------+ + + + [...]
--- OUTSIDE RECORDS SUMMARY | ~2020-06-28 | XMS | Encounter Summary ---
Demographics + + + | Address | [address] | | | [place] [address] | + + + | Home Phone [...] Providers + +------+ + | Care Director Diversity Name | Role | Phone | + +------+ + | Justo Vazquez MD | PCP | | + +------+ + Encounter Details +--------+ + + + + | Date | Type | Department | Care Team | Description | +--------+ + + + + | 01/02/ | Telephone | [facility] | Ilene Bright, | | | 2019 | | Pain Center at | CONTACT CENTER CONSULTANT [address] | | | | | [facility] | [place], [place] | | | | | [address] | [address] | | | | | [place] [facility] | [phone] | | | | | and Healing, | | | | | | | | | | | | Floor [place], [place] | | | | | | [address] | | | | | | [phone] | | | +--------+ + + + [...]
--- OUTSIDE RECORDS SUMMARY | ~2020-06-28 | XMS | Encounter Summary ---
Demographics + + + | Address | [address] | | | [place] [address] | + + + | Home Phone [...] Team Providers + +------+ + | Care Lpn Care Manager Name | Role | Phone | [...] + + | 09/14/ | Telephone | [facility] Ilene | Alex Sanchez, | Education procedure | | 2018 | | Pain Center at | ,PhD [address] | (preprocedure | | | | [facility] | [address] | education [facility]) | | | | [address] | [place], [place] | | | | | [facility] | [address] | | | | | and Healing, | [phone] | | | | | | | | | | | Floor [place], [place] | | | | | | [address] | | | | | | [phone] | | | +--------+ + + + [...]
--- OUTSIDE RECORDS SUMMARY | ~2020-06-28 | XMS | Encounter Summary ---
Demographics + + + | Address | [address] | | | [place] [address] | + + + | Home Phone [...] Team Providers + +------+ + | Care Dust Operator Name | Role | Phone | [...] | | | sympathetic | [place] | [address]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 | FAMILY | [address] | | | | | of lower | MEDICINE P | [id number] | | | | | limb | [address] | [place], [place] | | | | | | [place], | [address] | | | | | | [place] [address] | Phone: | | | | | | Phone: | [phone] | | | | | | [phone] | Fax: | | | | | | Fax: | [phone] | | | | | | [phone] | | +--------+--------+ + + + + Encounter Details +--------+---------+ + + + | Date | Type | Department | Care Team | Description | +--------+---------+ + + + | 09/04/ | Office | [facility] Comprehensive | Dale Cantu, | CRPS (complex | | 2011 | Visit | Pain Center at | [address] [facility] | regional pain | | | | [facility] | [facility] [address] | syndrome), lower | | | | [address] | [place], [place] | limb; Gait | | | | [place] for [facility] | [address] | disturbance; Sleep | | | | and Healing, | [phone] | disturbance, | | | | Building | | unspecified; | | | | Floor [place], [place] | | Adjustment reaction | | | | [address] | | | | | | [phone] | | | +--------+---------+ + + + [...] CRPS patients (Loretta Rousseau et al. Katrina Icing Mixer Med. 2010;152:152-158) . Bisphosphonate trial. Typically, I [...] Abraham MD - 09/04/2012 7:45 AM PDT [email or web address] Return Visit with Dr. Dale [...] and a pain drawing which I reviewed. [facility] Brief Pain Inventory: (ten= worst [...] Hemroidectomy Trial spinal cord stimulator leads 08/02/2012 [facility], Surgeon: Dale Cantu MD Family History Problem [...] The Review of Systems obtained by the [facility] was reviewed. Additional Review of Systems sean [...] of Pain: 13(1):17-21, 2008). DALE CANTU MD Earth Sciences Professor, [facility] Laser Specialist, Pain Medicine Professor, Anesthesiology & Perioperative Medicine [...]
--- OUTSIDE RECORDS SUMMARY | ~2020-06-28 | XMS | Encounter Summary ---
Demographics + + + | Address | [address] | | | [place] [address] | + + + | Home Phone [...] Team Providers + +------+ + | Care Tear Down Worker Name | Role | Phone | [...] 2016 | | Pain Center at | DELIVERY MANAGER [address] | | | | | [facility] | [place], [place] | | | | | [address] | [address] | | | | | [facility] | [phone] | | | | | and Healing, | | | | | | [facility] | | | | | | [place], [place] | | | | | | [address] | | | | | | [phone] | | | +--------+ + + + [...]
--- OUTSIDE RECORDS SUMMARY | ~2020-06-28 | XMS | Encounter Summary ---
Demographics + + + | Address | [address] | | | [place] [address] | + + + | Home Phone [...] Team Providers + +------+ + | Care Grass Cutter Name | Role | Phone | [...] + + | 06/07/ | Telephone | [facility] Ilene | Ilene Bright, | Care Coordination | | 2016 | | Pain Center at | CORN GROWER [address] | | | | | [facility] | [place], [place] | | | | | [address] | [address] | | | | | [facility] | [phone] | | | | | and Healing, | | | | | | Building , | | | | | | Floor [place], [place] | | | | | | [address] | | | | | | [phone] | | | +--------+ + + + [...]
--- OUTSIDE RECORDS SUMMARY | ~2020-06-28 | XMS | Clinical Summary ---
Demographics + + + | Address | [address] | | | [place] [address] | + + + | Home Phone | | + + + | Preferred Language | Unknown | + + + | Marital Status | Single | + + + | Adventism Affiliation | [id number] | + + + | Race | Unknown | + + + | Ethnic Group | Unknown | + + + Author + + + | Author | [facility] | | | and [place] | + + + | Organization | [facility] | | | and [place] | + + + | Address | Unknown | + + + | Phone | Unavailable | + + + Support + + + + + | Name | Relationship | Address | Phone | + + + + + | Patricia Keller | ECON | [address] | | | | | [place] | | | | | [address] | | + + + + + | Bryant Farah | ECON | Unknown | | + + + + + Care Team Providers + +------+ + | Care Chess Instructor Name | Role | Phone | [...] +--------+ +---------+--------+ | MEDICARE | MEDICA | [id number] | 07/15/20 | [phone] | | Medica | | | RE | | 15-Pre | 5 | | re | | | PART A | | sent | | | | | | AND B | | | | | | + +--------+ +--------+ +---------+--------+ | MEDICAID [place] | MEDICA | [id number] | | [phone] | | Medica | [...] | + +--------+ +--------+ + + | Trcaie Farah | Person | Self [birth year] | [address] | | Anika | gabo/Brian | | 1989 | [phone] | [place] [address] | | | evita | | | 6 (Home) | | + +--------+ +--------+ + +"
--- OUTSIDE RECORDS SUMMARY | ~2020-06-28 | XMS | Encounter Summary ---
Demographics + + + | Address | [address] | | | [place] [address] | + + + | Home Phone [...] Team Providers + +------+ + | Care Progress Worker Name | Role | Phone | + +------+ + | Justo Vazquez MD | PCP | | + +------+ + Encounter Details +--------+ + + + + | Date | Type | Department | Care Team | Description | +--------+ + + + + | 09/25/ | Pharmacy | [facility] | | | | 2018 | Visit | & [facility] | | | | | | [address] | | | | | | Mailcode: [place] | | | | | | [facility] and | | | | | | Healing, Building 1 | | | | | | [place], [place] | | | | | | [address] | | | | | | [phone] | | | +--------+ + + + [...]
--- OUTSIDE RECORDS SUMMARY | ~2020-06-28 | XMS | Encounter Summary ---
Demographics + + + | Address | [address] | | | [place] [address] | + + + | Home Phone [...] Team Providers + +------+ + | Care Metal Painter Name | Role | Phone | + [...] Pain Medicine | Diagnoses | Chasity, | Senior Contracts Administrator Chh1 | | | | / Pain | Abdominal | MD Kenny | [address] | | | | Management | pain, | [address] | [facility] | | | | | unspecified | [facility] | for Health | | | | | location | Rd | and Healing, | | | | | Procedures | [place], [place] | Building | | | | | CONSULT TO | [address] | 1,15th Floor | | | | | PAIN | | [place], [place] | | | | | MANAGEMENT | | [address] | | | | | | | Phone: | | | | | | | [phone] | | | | | | | Fax: | | | | | | | [phone] | +--------+--------+ + + + + Reason [...] Abdominal | | 2016 | | Center [place] [address] [address] | | pain | | | | [address] [facility] | | | | | | for Health and | | | | | | Healing, [facility] 2 | | | | | | [place], [place] | | | | | | [address] | | | | | | [phone] | | | +--------+ + + + [...]
--- OUTSIDE RECORDS SUMMARY | ~2020-06-28 | XMS | Encounter Summary ---
Demographics + + + | Address | [address] | | | [place] [address] | + + + | Home Phone [...] Providers + +------+ + | Care Motel Food Service Supervisor Name | Role | Phone | [...] | | | | [address] [place] | [facility] [place] | | | | | for Health and | [address] | | | | | Healing, Building 2 | [phone] | | | | | [place], [place] | | | | | | [address] | | | | | | [phone] | | | +--------+ + + + [...]
--- OUTSIDE RECORDS SUMMARY | ~2020-06-28 | XMS | Encounter Summary ---
Demographics + + + | Address | [address] | | | [place] [address] | + + + | Home Phone [...] Team Providers + +------+ + | Care Creeler Name | Role | Phone | + +------+ + | Justo Vazquez MD | PCP | | + +------+ + Encounter Details +--------+ + + + + | Date | Type | Department | Care Team | Description | +--------+ + + + + | 10/19/ | Telephone | [facility] | Ilene Bright, | | | 2017 | | Pain Center at | MOLDED GOODS EMBOSSING PRESS OPERATOR [address] | | | | | [facility] | [place], [place] | | | | | [address] | [address] | | | | | [place] for [facility] | [phone] | | | | | and Healing, | | | | | | | | | | | | Floor [place], [place] | | | | | | [address] | | | | | | [phone] | | | +--------+ + + + [...]
--- OUTSIDE RECORDS SUMMARY | ~2020-06-28 | XMS | Encounter Summary ---
Demographics + + + | Address | [address] | | | [place] [address] | + + + | Home Phone [...] Providers + +------+ + | Care Business Solutions Consultant Name | Role | Phone | [...] | Pain Center at | [address] | | | | | [facility] | [facility] [id number] | | | | | [address] | [place], [place] | | | | | Center for Health | [address] | | | | | and Healing, | [phone] | | | | | [facility] | | | | | | Floor [place], [place] | | | | | | [address] | | | | | | [phone] | | | +--------+ + + + [...]
--- OUTSIDE RECORDS SUMMARY | ~2020-06-28 | XMS | Encounter Summary ---
Demographics + + + | Address | [address] | | | [place] [address] | + + + | Home Phone [...] Providers + +------+ + | Care Nurse Case Manager Name | Role | Phone [...] Rd | | | | | | [place], [place] | | | | | | [address] | | | +--------+ + + + [...]
--- OUTSIDE RECORDS SUMMARY | ~2020-06-28 | XMS | Encounter Summary ---
Demographics + + + | Address | [address] | | | [place] [address] | + + + | Home Phone [...] Team Providers + +------+ + | Care Systems Tester Name | Role | Phone | [...] | | | | regional | ,PhD [address] | | | | | | pain | [address] | | | | | | syndrome | [address] | | | | | | type 1 of | Rd | | | | | | left lower | [place], [place] | | | | | | extremity | [address] | | | | | | Other | Phone: | | | | | | chronic pain | [phone] | | | | | | S/P | Fax: | | | | | | insertion of | [phone] | | | | | | spinal [...] | | | | regional | ,PhD 1897 | | | | | | pain | [address] | | | | | | syndrome | [address] | | | | | | type 1 of | Rd | | | | | | left lower | [place], [place] | | | | | | extremity | [address] | | | | | | Other | Phone: | | | | | | chronic pain | [phone] | | | | | | S/P | Fax: | | | | | | insertion of | [phone] | | | | | | spinal [...] + | 04/26/ | Telephone | [facility] | Alex Sanchez, | | | 2019 | | Pain Center at | ,PhD [address] | | | | | [facility] | [address] | | | | | [address] | [place], [place] | | | | | [facility] | [address] | | | | | and Healing, | [phone] | | | | | | | | | | | Floor [place], [place] | | | | | | [address] | | | | | | [phone] | | | +--------+ + + + [...]
--- OUTSIDE RECORDS SUMMARY | ~2020-06-28 | XMS | Encounter Summary ---
Demographics + + + | Address | [address] | | | [place] [address] | + + + | Home Phone [...] Team Providers + +------+ + | Care Snubber Name | Role | Phone | + +------+ + | Justo Vazquez MD | PCP | | + +------+ + Encounter Details +--------+------+ + + + | Date | Type | Department | Care Team | Description | +--------+------+ + + + | 12/14/ | Lab | Laboratory at [facility] | | Complex regional | | 2018 | | [address] | | pain syndrome type 1 | | | | Center for [facility] | | of left lower | | | | and Healing, | | extremity; Muscle | | | | Building 2 | | pain | | | | [place], [place] | | | | | | [address] | | | | | | [phone] | | | +--------+------+ + + + [...] | Negative | [facility] | | | BENRY, URINE | | | LABORATORY | | [...] | + + + + + | [facility] | [address] | [place] [address] | | | LILLIAN CROSS | GUILLERMO [...]
--- OUTSIDE RECORDS SUMMARY | ~2020-06-28 | XMS | Encounter Summary ---
Demographics + + + | Address | [address] | | | [place] [address] | + + + | Home Phone [...] Team Providers + +------+ + | Care Counseling Aide Name | Role | Phone | [...] | CRPS | Dale Martinez MD | [facility] [address] | | | | | (complex | [address] | Pavilion | | | | | regional | [address] | [address] | | | | | pain | Mailstop | [address], | | | | | syndrome), | [id number] | Basement | | | | | lower limb | [place], [place] | [place], [place] | | | | | Procedures | [address] | [address] | | | | | [place] BONE &/[place] | Phone: | Phone: | | | | | JOINT | [phone] | [phone] | | | | | IMAGING 3 | Fax: | Fax: | | | | | PHASE | [phone] | [phone] | +--------+--------+ + + + + Consult [...] | | | regional | [place] | [address] | | | | | pain | FAMILY | [address]stop | | | | | syndrome), | MEDICINE P | [address] | | | | | lower limb | [address] | [place], [place] | | | | | Gait | [place], | [address] | | | | | disturbance | [place] [address] | Phone: | | | | | Muscle pain | Phone: | [phone] | | | | | Procedures | [phone] | Fax: | | | | | REQUEST TO | Fax: | [phone] | | | | | SURGERY | [phone] | | | | | | PIPELINES SUPERVISOR | | | +--------+--------+ + + + + Consultation (Routine) +--------+--------+ + + + + | Status | Reason | Specialty | Diagnoses / | Referred By | Referred To | | | | | Procedures | Contact | Contact | +--------+--------+ + + + + | Closed | | Psychology / | Diagnoses | Beulah, | 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 Psych | | | | Pain | CRPS | Dale Martinez MD | [facility] [address] | | | | Management | (complex | [address] | | | | | regional | [address] | Center for | | | | | pain | Mailstop | Health and | | | | | syndrome), | [address] | Healing, | | | | | lower limb | [place], [place] | Building | | | | | Gait | [address] | 1,15th Floor | | | | | disturbance | Phone: | [place], [place] | | | | | Muscle pain | [phone] | [address] | | | | | Procedures | Fax: | Phone: | | | | | CONSULT TO | [phone] | [phone] | | | | | PAIN CENTER | | Fax: | | | | | | | [phone] | +--------+--------+ + + + + Physical Therapy (Routine) +--------+--------+ + + + + | Status | Reason | Specialty | Diagnoses / | Referred By | Referred To | | | | | Procedures | Contact | Contact | +--------+--------+ + + + + | Closed | | Physical | Diagnoses | Beulah, | Edu Pt 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 | | | | Therapy | CRPS | Dale Martinez MD | Ch[facility] [address] | | | | | (complex | [address] | | | | | regional | [address] | Mailcode: | | | | | pain | [address]stop | [facility] | | | | | syndrome), | [address] | for Health | | | | | lower limb | [place], [place] | and Healing, | | | | | Gait | [address] | [facility] 1 | | | | | disturbance | Phone: | [place], [place] | | | | | Muscle pain | [phone] | [address] | | | | | Procedures | Fax: | Phone: | | | | | PHYSICAL | [phone] | [phone] | | | | | THERAPY | [...] | | | 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 | FAMILY | [address]stop | | | | | of lower | MEDICINE P | [address] | | | | | limb | [address] | [place], [place] | | | | | | [place], | [address] | | | | | | [place] [address] | Phone: | | | | | | Phone: | [phone] | | | | | | [phone] | Fax: | | | | | | Fax: | [phone] | | | | | | [phone] | | +--------+--------+ + + + + Encounter Details +--------+---------+ + + + | Date | Type | Department | Care Team | Description | +--------+---------+ + + + | 02/13/ | Office | [facility] | Dale Cantu, | CRPS (complex | | 2011 | Visit | Pain Center at | MD [address] | regional pain | | | | [facility] | [facility] [id number] | syndrome), lower | | | | [address] | [place], [place] | limb; Gait | | | | Center for Health | [address] | disturbance; Muscle | | | | and Healing, | [phone] | pain; Adjustment | | | | | | reaction | | | | Floor [place], [place] | | | | | | [address] | | | | | | [phone] | | | +--------+---------+ + + + [...] Diagnostic evaluation: Records from CRPS program at [facility]. 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 [...] that the patien t have a signed [facility] Material Risk Notice, agree to whatever [...] sintia sure this is scheduled with the Physician Executive. Please bring a lease purchase truck driver with you. We may give you medications that make you drowsy or otherw ise unsafe to drive. If you do not have a lease purchase truck driver, we will not be able [...] PLEASE CONTACT THE COMPREHENSIVE PAIN CENTER AT [phone] ([phone]) FOR QUESTIONS OR IF YOU NEED TO CANCEL YOUR APPOINTMENT. [facility] documented in this [...] pain management consultation by BJORN Mi [place] [facility] MEDICINE [address] [place] [address] Reason for visit Chief Complaint Patient presents with Pain in left leg Ankle pain left History of Present Illness: Tracie Farah is a 21 year old female with pain locate d in left lower extremity. She has been diagnosed with CRPS. She is referred to [facility] for consultation regarding this ongoing pain problem with the following spec [facility] issues to be addressed: Other options [...] by several orthopedic surgeons, Dr. Charles in [place], physical therapy, Occupational Therapy. Diagnostic and radiologic [...] no pain relief. Admitted to the inpatient [facility] program for 1 month in the [...] entin, pregabalin, topiramate, tramadol, multiple opioids. Current Vanderbilt about 6-8/day. St arting duloxetine, at 30 mg/day. She feels that the most effective medication treatments ar e or have been opioids. As a result of her pain, Ms. Farah notes multiple changes in her life, including: "I don 't have a life, can't work, can't go to school." Poor mood, sleep, activity. Using crutche s recently because of pain flare. 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 Goes to [employer] with a light load. Has been working at [employer], can' t work on [employer]. Has roommates. Current Medication List 02/14/12 9:50 [...] Anaphylaxis As part of today's visit the [facility] new patient questionnaire was [...] rambo, the pediatric inpatient pain program at [facility], and two attempted lumbar sympathetic blocks. Last [...] CRPS patients (Loretta Rousseau, et al. Katrina Saw Straightener Med. 2010;152: 152-158). Other treatment options for the future: Spinal cord stimulation (SCS) has good evidence f or providing half-way relief in CRPS (Complex Regional Pain Syndrome) [...] [facility]: [facility] Suggest three ph ase bone scan-- [...] employed by the psychologists here at the [facility]. ORDER PLACED 2.2 Physical therapy can reduce pain and improve functional status. Suggest Guillermo Sanon . ORDER PLACED 3. Medication suggestions: 3.1 Continue titrating up duloxetine. 3.2 As for any patient being managed with chronic opioids, we do recommend that the patien t have a signed [facility] Material Risk Notice, agree to whatever [...] her PCP, BJORN Villanueva. DALE CANTU MD Voip Network Engineer, [facility] Delinquent Tax Collector, Pain Medicine Professor, Anesthesiology & Perioperative Medicine [...] | | + +---------+ + + | [facility] DEPART[facility] OF | | | | [...]
--- OUTSIDE RECORDS SUMMARY | ~2020-06-28 | XMS | Encounter Summary ---
Demographics + + + | Address | [address] | | | [place] [address] | + + + | Home Phone [...] Team Providers + +------+ + | Care Sustainable Products Marketing Manager Name | Role | Phone | [...] | | | | regional | ,PhD [address] | | | | | | pain | [address] | | | | | | syndrome | [address] | | | | | | type 1 of | Rd | | | | | | left lower | [place], [place] | | | | | | extremity | [address] | | | | | | Procedures | Phone: | | | | | | CONSULT TO | [phone] | | | | | | ORTHOPEDICS | Fax: | | | | | | AND | [phone] | | | | | | REHABILITATI | | | | | | | ON | | | +--------+--------+ + + + + Encounter Details +--------+ + + + + | Date | Type | Department | Care Team | Description | +--------+ + + + + | 06/08/ | Mechanical Engineering Intern | [facility] | Alex Sanchez, | Complex regional | | 2019 | | Pain Center at | ,PhD [address] | pain syndrome type 1 | | | | [facility] | [address] | of left lower | | | | [address] | [place], [place] | extremity (Primary | | | | Center for Health | [address] | Dx) | | | | and Healing, | [phone] | | | | | | | | | | | Floor [place], [place] | | | | | | [address] | | | | | | [phone] | | | +--------+ + + + [...]
--- OUTSIDE RECORDS SUMMARY | ~2020-06-28 | XMS | Encounter Summary ---
Demographics + + + | Address | [address] | | | [place] [address] | + + + | Home Phone [...] Team Providers + +------+ + | Care Covered Buckle Assembler Name | Role | Phone | [...] + + | 12/05/ | Hospital | [facility] | Alex Sanchez, | | | 2019 | Encounter | STAY [address] | ,PhD [address] [facility] | | | | | Courtney Mailcode: [facility] | [address] | | | | | [facility] | [place], [place] | | | | | Health and [facility], | [address] | | | | | [place] [address] | [phone] | | | | | [place], [place] | | | | | | [address] | | | | | | [phone] | | | +--------+ + + + [...] s/p successful DRG trial lead system with [employer] System on 09/25/2018. No changes in H&P, [...] OPERATIVE NOTE Date: December 05, 2018 Location: [facility] [place] | | | Tracie Farah [id number] :1990, presents to clinic | | | for: Dorsal root ganglion stimulator implant PROCEDURE: Dorsal | | | root ganglion stimulator implant PRE-OPERATIVE DIAGNOSIS: Complex | | | regional Pain syndrome type 1 of left lower extremity | | | POST-OPERATIVE DIAGNOSIS: Complex regional Pain syndrome type 1 of | | | left lower extremity ATTENDING PHYSICIAN: Alex Sanchez | | | SURGERY MANAGER: Arben Valerio MD ANESTHESIA: sedation by IVIS Cole | | | Carmen, supervised by hand cementer Ilir Valdes. | | | FINDINGS: Appropriate [...] sedation. Ms. Farah was escorted to the [facility] | | | [place], where [...] to the | | | St Judes circulation sales representative. A test stimulation was performed [...] recovery. Images were saved, and sent to [email or web address]. | | | Alex Sanchez (attending) was present for the entire procedure. | | | Arben Valerio MD I was present for the entire procedure | | | (spinal cord stimulator implantation with DRG leads at left L4 and | | | L5) and all bocanegra elements of this visit. I reviewed the | | | documentation of the other LAMP CLEANER providers and concur with Dr. | | | Iman's findings. I edited his note. Alex Sanchez, | | | ,PhD Panel Flow Machine Operator Anesthesiology and Pain Management | | | [facility] | | + + + [...] + + | JOSE ANTONIO MIN | [address] | [place] [address] | | | OF CARE TESTS | [...]
--- OUTSIDE RECORDS SUMMARY | ~2020-06-28 | XMS | Encounter Summary ---
Demographics + + + | Address | [address] | | | [place] [address] | + + + | Home Phone [...] Team Providers + +------+ + | Care Caustic Preparer Name | Role | Phone | + +------+ + | Justo Vazquez MD | PCP | | + +------+ + Encounter Details +--------+ + + + + | Date | Type | Department | Care Team | Description | +--------+ + + + + | 03/11/ | Telephone | [facility] | Zeeshan Mahoney MD | | | 2019 | | Pain Center at | [address] | | | | | [facility] | [facility], | | | | | [address] | [place] [address] | | | | | [place] for [facility] | [phone] | | | | | and Healing, | | | | | | | | | | | | [place], [place] | | | | | | [address] | | | | | | [phone] | | | +--------+ + + + [...]
--- OUTSIDE RECORDS SUMMARY | ~2020-06-28 | XMS | Encounter Summary ---
Demographics + + + | Address | [address] | | | [place] [address] | + + + | Home Phone [...] Team Providers + +------+ + | Care Educator Senior Clinical Name | Role | Phone | + +------+ + | Justo Vazquez MD | PCP | | + +------+ + Encounter Details +--------+ + + + + | Date | Type | Department | Care Team | Description | +--------+ + + + + | 04/23/ | Anesthesia | Pain Center at [facility] | Aleta Rebollar MD [address] | | | 2019 | Event | [address] | [address] | | | | | [place] [facility] | [place], [place] | | | | | and Healing, | [address] | | | | | | [phone] | | | | | Floor [place], [place] | | | | | | [address] | | | | | | [phone] | | | +--------+ + + + [...]
--- OUTSIDE RECORDS SUMMARY | ~2020-06-28 | XMS | Encounter Summary ---
Demographics + + + | Address | [address] | | | [place] [address] | + + + | Home Phone [...] Providers + +------+ + | Care Rock Mason Name | Role | Phone | [...] Pharmacy | | | | | | [address] | | | | | | Loop [place], [place] | | | | | | [address] | | | | | | [phone] | | | +--------+ + + + [...]
--- OUTSIDE RECORDS SUMMARY | ~2020-06-28 | XMS | Encounter Summary ---
Demographics + + + | Address | [address] | | | [place] [address] | + + + | Home Phone [...] Team Providers + +------+ + | Care Tick Sewer Name | Role | Phone | [...] | | Complex | Alex [place], | [facility] [address] | | | | | regional | ,PhD [address] | Pavilion | | | | | pain | [address] | | | | | syndrome | [address] | [address], | | | | | type 1 of | Rd | Basement | | | | | left lower | [place], [place] | [place], [place] | | | | | extremity | [address] | [address] | | | | | Muscle pain | Phone: | Phone: | | | | | Procedures | [phone] | [phone] | | | | | NM BONE | Fax: | Fax: | | | | | &/OR JOINT | [phone] | [phone] | | | | | IMAGING | [...] | | 2018 | Encounter | at [facility] [address] | ,PhD [address] [facility] | | | | | [address] | [address] | | | | | [address], | [place], [place] | | | | | [facility], | [address] | | | | | [place] [address] | [phone] | | | | | [phone] | | | +--------+ + + + [...]
--- OUTSIDE RECORDS SUMMARY | ~2020-06-28 | XMS | Encounter Summary ---
Demographics + + + | Address | [address] | | | [place] [address] | + + + | Home Phone [...] Team Providers + +------+ + | Care Lawyer Real Estate Name | Role | Phone | + [...] | | | | regional | ,PhD [address] | | | | | | pain | [address] | | | | | | syndrome | [address] | | | | | | type 1 of | Rd | | | | | | left lower | [place], [place] | | | | | | extremity | [address] | | | | | | Procedures | Phone: | | | | | | PHYSICAL | [phone] | | | | | | THERAPY | Fax: | | | | | | REFERRAL | [phone] | | +--------+--------+ + + + + Encounter Details +--------+ + + + + | Date | Type | Department | Care Team | Description | +--------+ + + + + | 01/22/ | Telephone | [facility] | Alex Sanchez, | | | 2019 | | Pain Center at | ,PhD [address] [facility] | | | | | [facility] | [facility] | | | | | [address] | [place], [place] | | | | | [facility] | [address] | | | | | and Martina, | [phone] | | | | | | | | | | | Floor [place], [place] | | | | | | [address] | | | | | | [phone] | | | +--------+ + + + [...]
--- OUTSIDE RECORDS SUMMARY | ~2020-06-28 | XMS | Encounter Summary ---
Demographics + + + | Address | [address] | | | [place] [address] | + + + | Home Phone [...] Team Providers + +------+ + | Care Strainer Cleaner Name | Role | Phone | + +------+ + | Justo Vazquez MD | PCP | | + +------+ + Encounter Details +--------+ + + + + | Date | Type | Department | Care Team | Description | +--------+ + + + + | 05/14/ | Telephone | [facility] | Alex Sanchez, | | | 2019 | | Pain Center at | ,PhD [address] | | | | | [facility] | [address] | | | | | [address] | [place], [place] | | | | | [place] for [facility] | [address] | | | | | and Healing, | [phone] | | | | | | | | | | | Floor [place], [place] | | | | | | [address] | | | | | | [phone] | | | +--------+ + + + [...]
--- OUTSIDE RECORDS SUMMARY | ~2020-06-28 | XMS | Encounter Summary ---
Demographics + + + | Address | [address] | | | [place] [address] | + + + | Home Phone [...] Team Providers + +------+ + | Care Hot Die Press Operator Name | Role | Phone [...] | | | | | extremity | [address] | [address] | | | | | Procedures | Phone: | Phone: | | | | | REQUEST TO | [phone] | [phone] | | | | | SURGERY | Fax: | Fax: | | | | | NURSING ADMIN | [phone] | [phone] | +--------+---------+ + + + + Encounter Details +--------+ + + + + | Date | Type | Department | Care Team | Description | +--------+ + + + + | 12/ | Procedure | Pain Center at [facility] | Alex Sanchez, | Foot pain; Knee | | 2018 | | [address] | ,PhD [address] | pain; Procedure | | | | [facility] | [facility] | | | | | and Healing, | [place], [place] | | | | | | [address] | | | | | Floor [place], [place] | [phone] | | | | | [address] | | | | | | [phone] | | | +--------+ + + + [...] Sonia Key - 09/25/2018 1:00 PM PST [facility] [[email or web address] Patient Instructions - Post Interventional Procedure Date: 09/25/2018 Name: Tracie Farah Date of : 1990 Procedure Performed: SCS DRG TRIAL LUMBAR [facility] Procedure Provider: Alex Sanchez MD,PhD If you have any problems you believe are associated with your procedure tonight, Please call the Hospital Zipper Trimmer, and ask for the Pain Management Consu ltant. If you have problems or questions between 9:00 am and 4:00 pm, Please call the [facility] [[email or web address]] Nurse Triage Line, . If you go [...] symptoms, dressing, SCS function, or chills. During CRIMINAL INTELLIGENCE ANALYST open ho urs, call the [facility] ([phone]), after hours call the collar turner operator at [facility] ([phone]) and ask for the Adult Pain Service irrigation foreman. Identify yourself as a Comprehensive [facility] [...] to the pat ient. Aleta Rebollar MD [facility] Comprehensive Pain Center Olvwjronvutzel signed by Sonia Key at 09/25/2018 3:07 PM PST documented in this encounter Progress Notes Alex Sanchez MD,PhD - 09/25/2018 1:00 PM PSTI was present for the entire procedure ( DRG SCS trial) and all bocanegra elements of this visit. I reviewed the documentation of the othe r [facility] providers and concur with Dr. Rebollar's findings. I edited his note. Alex Sanchez MD,PhD Popcorn Candy Maker Anesthesiology and Pain Management [facility] [place] onacZain bonner RN - 09/25/2018 1:00 PM [...] by physician. Concentration is 150mg/mL. Compounded by [employer] ) KETOROLAC IM Inject into the muscle [...] GRAM-5.86 GRAM SOLUTION Take as directed by [facility] Digestive [facility]- 2 gallon bowel prep POLYETHYLENE GLYCOL 3350 [...] PRE-SEDATION: Date: September 25, 2018 Tracie Farah [id number] 1990 ALLERGIES: Morphine Previous reaction to Sedation/Analgesia: [...] NOTES: Date: September 25, 2018 Tracie Donaldson [facility] [id number] 1990 ALLERGIES: Morphine Previous reaction to Sedation/Analgesia: [...] VS: See Sedation Flow Sheet. Tracie Donaldson [facility] [id number] 1990, presents to clinic for: Procedure: bilateral [...] OPERATIVE NOTE Date: September 25, 2018 Location: [facility] Procedure Room Tracie Donaldson [facility] [id number] :1990, presents to clinic for: PROCEDURE: DRG Spinal Cord Stimuation Trial with [employer] system LEVEL/LATERALITY: left L4, L5 PRE-OPERATIVE DIAGNOSIS: G90.522 Complex regional pain syndrome type 1 of left lower extremity POST-OPERATIVE DIAGNOSIS: G90.522 Complex regional pain syndrome type 1 of left lower extremity ATTENDING PHYSICIAN: Alex Sanchez MD,PhD BIOMEDICAL MANAGER: Fellow Aleta Rebollar ANESTHESIA: Sedation delivered by [...] sedation. Ms. Farah was escorted to the [facility] Procedure R oom, where she was positioned [...] patient. Ms. Farah was transported to the [facility] post-procedure recovery area where she made an uneventful recovery. Programming was performed in the PACU with aid of the device medical sales representative and Ms. Susie faust was sent home with a few programs . This was a unilateral procedure. Alex aSnchez MD,PhD was present for the entire procedure. Images were saved, and sent to [employer]. Ms. Farah was transported to the [facility] post-procedure recovery area. She had an uneventful recovery. Before the procedure, Ms. Farah's pain was 7/10. After the procedure Ms. Farah's pain was 7/10. I, Sonia Key, am functioning as a scribe for Aleta Rebollar MD. I have reviewed and verified the above scribed note of my visit with this patient as record ed by Sonia Key. Aleta Rebollar MD [facility] 15TH FLOOR [address] [facility] Mail Code: [address] [address] documented in t his encounter Plan of Treatment Not on filedocumented as of this encounter Procedures + +--------+ + + + | Procedure Name | Priori | Date/Time | Associated Diagnosis | Comments | | | ty | | | | + +--------+ + + + | LA MOD SEDATION | Routin | 09/25/2018 | Complex regional | | | >=5YRS SAME MD/QUAL | e | 7:31 PM | pain syndrome type 1 | | | PROV; INIT 15 MIN | | PST | of left lower | | | | | | extremity | | + +--------+ + + + | LA PERCUT IMPLNT | Routin | 09/25/2018 | [...]
--- OUTSIDE RECORDS SUMMARY | ~2020-06-28 | XMS | Encounter Summary ---
Demographics + + + | Address | [address] | | | [place] [address] | + + + | Home Phone [...] Team Providers + +------+ + | Care Transplanter Orchid Name | Role | Phone | + [...] [address] Shane | | | | | [facility] | [facility], | | | | | [address] | [place] [address] | | | | | [facility] | [phone] | | | | | and Healing, | | | | | | [facility] | | | | | | [place], [place] | | | | | | [address] | | | | | | [phone] | | | +--------+ + + + [...]
--- OUTSIDE RECORDS SUMMARY | ~2020-06-28 | XMS | Encounter Summary ---
Demographics + + + | Address | [address] | | | [place] [address] | + + + | Home Phone [...] Providers + +------+ + | Care Supervisor Cured Meats Name | Role | Phone | + [...] Management | Complex | Alex Alba, | Alxe Alba, | | | | | regional | ,PhD [address] | ,PhD [address] | | | | | pain | [address] | | | | | syndrome | [place] | [facility] | | | | | type 1 of | Rd | Rd [place], | | | | | left lower | [place], [place] | [place] | | | | | extremity | [address] | [address] | | | | | Procedures | Phone: | Phone: | | | | | REQUEST TO | [phone] | [phone] | | | | | SURGERY | Fax: | Fax: | | | | | DIABETES EDUCATION COORDINATOR | [phone] | [phone] | +--------+---------+ + + + + Encounter Details +--------+---------+ + + + | Date | Type | Department | Care Team | Description | +--------+---------+ + + + | 09/28/ | Office | [facility] Comprehensive | Yun Frey, ENERGY ATTORNEY | Complex regional | | 2018 | Visit | Pain Center at | [address] | pain syndrome type 1 | | | | [place] | [place], [place] | of left lower | | | | [address] | [address] | extremity (Primary | | | | [facility] | [phone] | Dx); Arthralgia of | | | | and Healing, | | left lower leg | | | | | | | | | | [place], [place] | | | | | | [address] | | | | | | [phone] | | | +--------+---------+ + + + [...] Dr. Sanchez on 10/02/2018. -Please contact the [place]'s rep if you have any further question [...] PM PST September 28, 2018 Tracie Farah [id number] [facility] Comprehensive Pain Center Return Visit Chief Complaint: [...] and a pain drawing which I reviewed. [facility] Questionnaire Follow-up Patient 10/10/2017 Please describe [...] PROCEDURE: DRG Spinal Cord Stimuation Trial with [employer]. Neohapsis system LEVEL/LATERALITY: left L4, L5. Till date, [...] turned up to 7%. After seeing th billing customer service representative today and killian ing adjustments, she [...] Hemroidectomy Trial spinal cord stimulator leads 08/02/2012 [facility], Surgeon: Janak Riojas MD Cholecystectomy Appendectomy [...] the vein (IV) every eight hour s. 5693-6987-23 COMPOUNDED MED RX CONTROLLED (SEE ADMIN INSTRUCT [...] by physician. Concentration is 150mg/mL. Compounded by [facility] ( [phone]) KETOROLAC IM Inject into the muscle (IM). [...] (IV) every twel ve hours as needed. 5063-1219-83 ONDANSETRON 4 MG DISINTEGRATING TABLET Dissolve 1 tablet in mouth every twelve hours as nee ded. PANTOPRAZOLE 40 MG TABLET,DELAYED RELEASE Take 40 mg by mouth once daily. PEG 3350-ELECTROLYTES 236 GRAM-22.74 GRAM-6.74 GRAM-5.86 GRAM SOLUTION Take as directed by [facility] Digestive [facility]- 2 gallon bowel prep POLYETHYLENE [...] been given programming opti ons by the [employer] device billing customer service representative, Michele. At this time, there is no complication from the DRG trial. Recommendations/Plan: 1. Recommend to keep her appointment with Dr. Sanchez on 10/02/2018. 2. To contact the [employer] rep if she has any further question on programming. 09/28/2018: I, Dayana Ivan, am functioning as a durable medical equipment technician for Yun Frey NP. I have reviewed and verified the above scribed note of my visit with this patient as record ed by Ms. Dayana Ivan. Jeanine Frey (Mr.) MSN, ACNP- Nurse Practitioner Acute Pain Service /[facility] [address] [place] [id number] documented in this enco unter Plan of [...]
--- OUTSIDE RECORDS SUMMARY | ~2020-06-28 | XMS | Encounter Summary ---
Demographics + + + | Address | [address] | | | [place] [address] | + + + | Home Phone [...] Team Providers + +------+ + | Care Uniform Designer Name | Role | Phone | [...] | | | | | unspecified | [facility] | [address] | | | | | location | Rd | [facility] | | | | | Procedures | [place], [place] | Rd [place], | | | | | CONSULT TO | [address] | [place] | | | | | PAIN | | [address] | | | | | MANAGEMENT | | Phone: | | | | | | | [phone] | | | | | | | Fax: | | | | | | | [phone] | +--------+--------+ + + + + Encounter Details +--------+---------+ + + + | Date | Type | Department | Care Team | Description | +--------+---------+ + + + | 05/08/ | Office | [facility] Comprehensive | Alex Sanchez, | Complex regional | | 2018 | Visit | Pain Center at | ,PhD [address] | pain syndrome type 1 | | | | [place] | [facility] [address] | of left lower | | | | [address] | [place], [place] | extremity (Primary | | | | [facility] | [address] | Dx); Pain of upper | | | | and Healing, | [phone] | abdomen; Intractable | | | | | | cyclical vomiting | | | | Floor [place], [place] | | with nausea; | | | | [address] | | Disturbance in sleep | | | | [phone] | | behavior; Abdominal | | | [...] MD,P hD - 05/08/2018 10:30 AM PDT [facility] Comprehensive Pain Center Return Visit Date: 05/08/2018 Chief Complaint Patient presents with Ankle pain Left Foot pain Left History of Present Illness: Tracie Farah is a 27 year old female, whose [facility] app[facility] was April 19, 2018, for [...] time that 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 BROKER ASSISTANT Brief Pain Inventory: (ten= worst possible [...] Hemroidectomy Trial spinal cord stimulator leads 08/02/2012 [facility], Surgeon: Janak Riojas MD Cholecystectomy Appendectomy Other [...] History Social History Narrative Single. Goes to [employer] college with a light load. Has been working at [employer], can' t work on [employer]. Has roommates. Allergies Allergen Reactions Morphine Anaphylaxis [...] by physician. Concentration is 150mg/mL. Compounded by [employer] ) KETOROLAC IM Inject into the muscle [...] GRAM SOLUTION Take as directed by [facility]- 2 gallon bowel prep POLYETHYLENE [...] and summary of old medical records (source: [employer]), as summarized in the body of the [...] by Sonia Key. Alex Sanchez MD PhD Hospice Clinical Supervisor Anesthesiology and Pain Management [facility] documented in this encounter Plan of [...]
--- OUTSIDE RECORDS SUMMARY | ~2020-06-28 | XMS | Encounter Summary ---
Demographics + + + | Address | [address] | | | [place] [address] | + + + | Home Phone [...] Providers + +------+ + | Care Manufacturing Software Engineer Name | Role | Phone | [...] + | 08/07/ | Refill | [facility] | Alex Sanchez, | Refill Request | | 2018 | | Pain Center at | ,PhD [address] | | | | | [facility] | [address] | | | | | [address] | [place], [place] | | | | | [facility] | [address] | | | | | and [place]ina, | [phone] | | | | | [facility] | | | | | | Floor [place], [place] | | | | | | [address] | | | | | | [phone] | | | +--------+--------+ + + + [...]
--- OUTSIDE RECORDS SUMMARY | ~2020-06-28 | XMS | Encounter Summary ---
Demographics + + + | Address | [address] | | | [place] [address] | + + + | Home Phone [...] Team Providers + +------+ + | Care Boatswain'S Mate Name | Role | Phone | + [...] | | | sympathetic | [place] | [address]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 | FAMILY | [address] | | | | | of lower | MEDICINE P | [id number] | | | | | limb | [address] | [place], [place] | | | | | | [place], | [address] | | | | | | [place] [address] | Phone: | | | | | | Phone: | [phone] | | | | | | [phone] | Fax: | | | | | | Fax: | [phone] | | | | | | [phone] | | +--------+--------+ + + + + Encounter Details +--------+---------+ + + + | Date | Type | Department | Care Team | Description | +--------+---------+ + + + | 03/17/ | Office | [facility] | Dale Cantu, | CRPS (complex | | 2011 | Visit | Pain Center at | [address] | regional pain | | | | [place] | [address] [id number] | syndrome), lower | | | | [address] | [place], [place] | limb; Adjustment | | | | [place] for [facility] | [address] | reaction; Muscle | | | | and Healing, | [phone] | pain; Gait | | | | [facility] | | disturbance | | | | Floor [place], [place] | | | | | | [address] | | | | | | [phone] | | | +--------+---------+ + + + [...] Pain: After Your Visit", log into your OnTheGo Platforms nt at [email or web address]. You can enter G828 in the RealityMine Library" search box. Not on GameSkinnyt? Review the MyChart section of your After Visit Summary for directions on liz rea to sign up. 3756-2927 [employer]arch. Care instructions adapted under license by [facility]. This care instruction is for use with your licensed healthcar e professional. If you have questions about a medical condition or this instruction, always ask your healthcare professional. [employer] disclaims any warranty or liabili ty for your use of this information. Content Version: 9.2.623076; Last Revised: April 29, 2011 Nortriptyline for [...] up for it. Just take the next timotoe y dose as prescribed by your doctor. [...] Pain: After Your Visit", log into your OnTheGo Platforms nt at [email or web address]. You can enter G828 in the [employer]" search box. Not on PacerPro? Review the eVoterhart section of your After Visit Summary for directions on ho w to sign up. [id number] [employer]. Care instructions adapted under license by [facility] [employer]. This care instruction is for use with your licensed healthcar e professional. If you have questions about a medical condition or this instruction, always ask your healthcare professional. [employer] disclaims any warranty or liabili ty for your use of this information. Content Version: 9.2.820339; Last Revised: April 29, 2011 documented in [...] documented in our notes. DALE CANTU MD Kelp Gatherer, Comprehensive [facility] Pantograph Ii Engraver, Pain Medicine Professor, Anesthesiology & Perioperative Medicine NAMollMarquis manriquez MD - 03/17/2012 3:42 PM PDT [facility] Return Visit with [...] her pain. She continues to take 6-8 [place] per day and 600 mg of ibuprofen [...] and a pain drawing which I reviewed. [facility] Brief Pain Inventory: (ten= worst possible pain [...] The Review of Systems obtained by the [facility] was reviewed. Additional Review of Systems: [...] you require any medication refills today? no MUNICIPAL ENGINEER ROS: 1. Bones, Joints, and Muscles: cramps [...]
--- OUTSIDE RECORDS SUMMARY | ~2020-06-28 | XMS | Encounter Summary ---
Demographics + + + | Address | [address] | | | [place] [address] | + + + | Home Phone [...] Providers + +------+ + | Care Patient Access Specialist Name | Role | Phone | + +------+ + | Justo Vazquez MD | PCP | | + +------+ + Encounter Details +--------+ + + + + | Date | Type | Department | Care Team | Description | +--------+ + + + + | 06/12/ | Hospital | Radiology/Imaging | Alex Sanchez, | | | 2018 | Encounter | Lab at [facility] [address] | ,PhD [address] [facility] | | | | | [facility] for | [facility] | | | | | Health and [facility], | [place], [place] | | | | | [place] [address] [facility] | [address] | | | | | Floor [place], [place] | [phone] | | | | | [address] | | | | | | [phone] | | | +--------+ + + + [...]
--- OUTSIDE RECORDS SUMMARY | ~2020-06-28 | XMS | Encounter Summary ---
Demographics + + + | Address | [address] | | | [place] [address] | + + + | Home Phone [...] Team Providers + +------+ + | Care Impregnator And Drier Helper Name | Role | Phone | [...] | Orthopedics | Diagnoses | [place], | [place], | | | | | Complex | Alex Alba, | Ranjeet Odom MD | | | | | regional | ,PhD [address] | [address] | | | | | pain | [address] | [address] | | | | | syndrome | [address] | [place], [place] | | | | | type 1 of | Rd | [address] | | | | | left lower | [place], [place] | Phone: | | | | | extremity | [address] | [phone] | | | | | Procedures | Phone: | Fax: | | | | | CONSULT TO | [phone] | [phone] | | | | | ORTHOPEDICS | Fax: | | | | | | AND | [phone] | | | | | | REHABILITATI [...] | ankle results) | | | | [facility] | [facility] [address] | | | | | [address] | [place], [place] | | | | | [facility] | [address] | | | | | and Healing, | [phone] | | | | | | | | | | | Floor [place], [place] | | | | | | [address] | | | | | | [phone] | | | +--------+ + + + [...]
--- OUTSIDE RECORDS SUMMARY | ~2020-06-28 | XMS | Encounter Summary ---
Demographics + + + | Address | [address] | | | [place] [address] | + + + | Home Phone [...] + +------+ + | Care Medical Billing And Coding Instructor Name | Role | Phone | + +------+ + | Justo Vazquez MD | PCP | | + +------+ + Encounter Details +--------+ + + + + | Date | Type | Department | Care Team | Description | +--------+ + + + + | 06/12/ | Hospital | Radiology/Imaging | Alex Sanchez, | | | 2018 | Encounter | Lab at [facility] [address] | ,PhD [address] [facility] | | | | | [facility] for | [facility] | | | | | Health and [facility], | [place], [place] | | | | | [place] [address] [facility] | [address] | | | | | Floor [place], [place] | [phone] | | | | | [address] | | | | | | [phone] | | | +--------+ + + + [...]
--- OUTSIDE RECORDS SUMMARY | ~2020-06-28 | XMS | Encounter Summary ---
Demographics + + + | Address | [address] | | | [place] [address] | + + + | Home Phone [...] Team Providers + +------+ + | Care Janitorial Supervisor Name | Role | Phone | [...] Vomiting; | | 2016 | | Center [place] [address] [address] | | Constipation; | | | | [address] [place] | | Abdominal pain | | | | for Health and | | | | | | Healing, [address] | | | | | | [place], [place] | | | | | | [address] | | | | | | [phone] | | | +--------+ + + + [...]
--- OUTSIDE RECORDS SUMMARY | ~2020-06-28 | XMS | Encounter Summary ---
Demographics + + + | Address | [address] | | | [place] [address] | + + + | Home Phone [...] Team Providers + +------+ + | Care Jewel Bearing Driller Name | Role | Phone | + [...] | Complex | Alex Alba, | [facility] [address] | | | | | regional | ,PhD [address] | Pavilion | | | | | pain | [address] | [address] | | | | | syndrome | [address] | [address], | | | | | type 1 of | Rd | Basement | | | | | left lower | [place], [place] | [place], [place] | | | | | extremity | [address] | [address] | | | | | Muscle pain | Phone: | Phone: | | | | | Procedures | [phone] | [phone] | | | | | NM BONE | Fax: | Fax: | | | | | &/OR JOINT | [phone] | [phone] | | | | | IMAGING | [...] | | | | | | | CO BONE | | | | | | | IMAGING, | | | | | | | LIMITED AREA | | | | | | | CO BONE | | | | | | [...] | | 2018 | Encounter | at [facility] [address] | ,PhD [address] [facility] | | | | | [address] | [address] | | | | | [address], | [place], [place] | | | | | [facility], | [address] | | | | | [place] [address] | [phone] | | | | | [phone] | | | +--------+ + + + [...]
--- OUTSIDE RECORDS SUMMARY | ~2020-06-28 | XMS | Encounter Summary ---
Demographics + + + | Address | [address] | | | [place] [address] | + + + | Home Phone [...] Team Providers + +------+ + | Care Sleeping Car Service Attendant Name | Role | Phone | [...] | Diagnoses | Beulah | Edu Pt Supervisor Kennel | | | | Therapy | CRPS | Janak Martinez MD | [address] | | | | | (complex | [address] | | | | | regional | [address] | Mailcode: | | | | | pain | Mailstop | [facility] | | | | | syndrome), | [id number] | for Health | | | | | lower limb | [place], [place] | and Healing, | | | | | Gait | [address] | Building 1 | | | | | disturbance | Phone: | [place], [place] | | | | | Muscle pain | [phone] | [address] | | | | | Procedures | Fax: | Phone: | | | | | PHYSICAL | [phone] | [phone] | | | | | THERAPY | [...] regional pain | | | | [facility] | [place] [address] | syndrome), lower | | | | [address] | [phone] | limb (Primary Dx) | | | | Center for Health | | | | | | and Healing, | | | | | | Building 1, 1st | | | | | | Floor [place], [place] | | | | | | [address] | | | | | | [phone] | | | +--------+---------+ + + + [...] might be different f rom the original. [id number] BRODY FARAH Date of : 1990 Start of care: 02/14/2012 Date of onset: 02/14/2012 Referring/Attending Practitioner: Janak Riojas MD . Primary/Referral Diagnosis/ICD-9: 355.71B CRPS (complex regional pain syndrome), lower limb Insurance: Payor: [facility] Plan: BCBS OUT OF STATE Product Type: PP O Service period from: 02/14/2012 to: 08/12/2012 Number visits used/authorized: 05/25 [facility] PHYSICAL THERAPY PROGRESS [...] any change in their status. Guillermo Sanon [facility] Outpatient Rehabilitation Services Mailcode: Ch3p [address] [facility], 1st Floor [facility] [address] documented in this encounter Plan of Treatment Not on filedocumented as of this encounter Procedures + +--------+ + + + | Procedure Name | Priori | Date/Time | Associated Diagnosis | Comments | | | ty | | | | + +--------+ + + + | [place] MANUAL THER | Routin | 06/09/2012 | CRPS (complex | | | TECH,1+REGIONS,EA 15 | e | 2:46 PM | regional pain | | | MIN | | PDT | syndrome), lower | | | | | | limb | | + +--------+ + + + | [place] THERAPEUTIC | Routin | 06/09/2012 | CRPS [...]
--- OUTSIDE RECORDS SUMMARY | ~2020-06-28 | XMS | Encounter Summary ---
Demographics + + + | Address | [address] | | | [place] [address] | + + + | Home Phone [...] + +------+ + | Care Director Of Social Media Marketing Name | Role | Phone | [...] 08/11/ | Documentati | KEVIN YANEZ at [facility] | Lab, Gi Procedure | Medical Records | | 2015 | on | [address] | | Review | | | | [address] [facility] for | | | | | | Health and Healing, | | | | | | Building 2 | | | | | | [place], [place] | | | | | | [address] | | | | | | [phone] | | | +--------+ + + + [...]
--- OUTSIDE RECORDS SUMMARY | ~2020-06-28 | XMS | Encounter Summary ---
Demographics + + + | Address | [address] | | | [place] [address] | + + + | Home Phone [...] Team Providers + +------+ + | Care Driver Examiner Name | Role | Phone | + [...] | | | | | syndrome | [facility] | | | | | type 1 of | Rd | Rd [place], | | | | | left lower | [facility] [place] | [place] | | | | | extremity | [address] | [address] | | | | | Muscle pain | Phone: | Phone: | | | | | Procedures | [phone] | [phone] | | | | | REQUEST TO | Fax: | Fax: | | | | | SURGERY | [phone] | [phone] | | | | | AUTOPSY ASSISTANT | | | +--------+---------+ + + + [...] | syndrome | [address] | | | | | type 1 of | Rd | Rd [place], | | | | | left lower | [place], [place] | [place] | | | | | extremity | [address] | [address] | | | | | Muscle pain | Phone: | Phone: | | | | | Procedures | [phone] | [phone] | | | | | REQUEST TO | Fax: | Fax: | | | | | SURGERY | [phone] | [phone] | | | | | AUTOPSY ASSISTANT | | | | | | | [...] | | | | | Procedures | [facility] [place] | [facility], | | | | | CONSULT TO | [address] | [place] | | | | | PAIN | | [address] | | | | | MANAGEMENT | | Phone: | | | | | | | [phone] | | | | | | | Fax: | | | | | | | [phone] | +--------+--------+ + + + + Encounter Details +--------+---------+ + + + | Date | Type | Department | Care Team | Description | +--------+---------+ + + + | 12/14/ | Office | [facility] | Alxe Sanchez, | Complex regional | | 2018 | Visit | Pain Center at | ,PhD [address] | pain syndrome type 1 | | | | [facility] | [facility] [address] | of left lower | | | | [address] | [place], [place] | extremity (Primary | | | | [facility] | [address] | Dx); Muscle pain; | | | | and Healing, | [phone] | Pain of upper | | | | | | abdomen | | | | Floor [place], [place] | | | | | | [address] | | | | | | [phone] | | | +--------+---------+ + + + [...] the time to see us in the [facility]. It was great to [...] make sure this is scheduled with the Tax Clerk. PRE-PROCEDURE INSTRUCTIONS 1. Please bring a jitney driver with you as we may give you medications that impair your ability to drive. This is necessary even if you do not receive sedation. You may take a taxi or [employer] if you are accompanied by a responsible [...] or blood thinning medications (other than aspirin), [facility] doctor who is doing your procedure will communicate with the provider who is prescribing y our anticoagulant therapy. If you do not have clear instructions on what to do with your an ticoagulant by 2 weeks before your procedure, please contact [facility] to cl arify your instructions. The phone number for questions or concerns is [phone]. documented in this encounter Progress Notes Charline [...] M D,PhD - 12/14/2017 10:25 AM PST [facility] Return Visit Date: 12/14/2017 Chief Complaint Patient presents with Back pain Low back pain Abdominal pain Pain in right leg Pain in left leg History of Present Illness: Tracie Farah is a 27 year old female, whose last appoi ntment at the [facility] was October 11, 2017, for a clinic [...] review treatment plan. * Follow up with [facility] as needed. Today, she [...] was treated by Christie Madrid MD in [place], [place] for three years before she abruptly ended her practice due to illness. This left her without a doctor to help her manage her chronic pain. In addition to her CRPS symptoms (diagnosed 2010), she has some sto mach issues that she has been working with Ilene Childs DNP, LAWN AND GARDEN TECHNICIAN-C. She has a scar on her stomach [...] a lot of great improvements while in [place], [place]. Weaning her off of the narcotic [...] her medical history that she spent in [place], [place] where she part ook in a [...] Spinal cord stimulator trial - Nerve blocks BARREL ASSEMBLER HELPER Brief Pain Inventory: (ten= worst possible [...] Hemroidectomy Trial spinal cord stimulator leads 08/02/2012 [facility], Surgeon: Janak Riojas MD Cholecystectomy Appendectomy Other [...] History Social History Narrative Single. Goes to [employer] with a light load. Has been working at [employer], can' t work on crChalkfly. Has roommates. Allergies Allergen Reactions Morphine Anaphylaxis [...] by physician. Concentration is 150mg/mL. Compounded by [facility] ) LAMOTRIGINE 200 MG TABLET Take [...] GRAM-5.86 GRAM SOLUTION Take as directed by [facility] Dig[facility]ive [facility]- 2 gallon bowel prep POLYETHYLENE [...] and summary of old medical records (source: Rebit), as summarized in the body of the [...] to her by Christie Madrid MD in [place], [place]. As she has since left the [...] I jacqueline poon spoken with our medical office receptionist, Evelia Gonzalez MD who agrees that as [...] peripheral nerve stimulation. As she lives in [place], [place] with her family (3.5 hours away), [...] by Sonia Key. Alex Sanchez MD PhD Corporate Affairs Manager Anesthesiology and Pain Management [facility] Post visit: I reviewed the UDS, and [...] | + + + + + | [facility] | [address] | [place] [address] | | | SERVICES, CORE | GUILLERMO [...]
--- OUTSIDE RECORDS SUMMARY | ~2020-06-28 | XMS | Encounter Summary ---
Demographics + + + | Address | [address] | | | [place] [address] | + + + | Home Phone [...] Providers + +------+ + | Care Web Site Project Manager Name | Role | Phone | + +------+ + | Justo Vazquez MD | PCP | | + +------+ + Encounter Details +--------+ + + + + | Date | Type | Department | Care Team | Description | +--------+ + + + + | 06/04/ | Documentati | [facility] | Alex Sanchez, | | | 2019 | on | Pain Center at | ,PhD [address] | | | | | [facility] | [address] | | | | | [address] | [place], [place] | | | | | [facility] | [address] | | | | | and Healing, | [phone] | | | | | | | | | | | Floor [place], [place] | | | | | | [address] | | | | | | [phone] | | | +--------+ + + + [...]
--- OUTSIDE RECORDS SUMMARY | ~2020-06-28 | XMS | Encounter Summary ---
Demographics + + + | Address | [address] | | | [place] [address] | + + + | Home Phone [...] Team Providers + +------+ + | Care Surplus Property Disposal Agent Name | Role | Phone | + +------+ + | Justo Vazquez MD | PCP | | + +------+ + Encounter Details +--------+ + + + + | Date | Type | Department | Care Team | Description | +--------+ + + + + | 08/07/ | Telephone | [facility] | Alex Sanchez, | | | 2019 | | Pain Center at | ,PhD [address] | | | | | [facility] | [address] | | | | | [address] | [place], [place] | | | | | [place] [facility] | [address] | | | | | and Healing, | [phone] | | | | | | | | | | | Floor [place], [place] | | | | | | [address] | | | | | | [phone] | | | +--------+ + + + [...]
--- OUTSIDE RECORDS SUMMARY | ~2020-06-28 | XMS | Encounter Summary ---
Demographics + + + | Address | [address] | | | [place] [address] | + + + | Home Phone [...] Providers + +------+ + | Care High Speed Printer Operator Name | Role | Phone | [...] Rd | | | | | | [place], [place] | | | | | | [address] | | | +--------+ + + + [...]
--- OUTSIDE RECORDS SUMMARY | ~2020-06-28 | XMS | Encounter Summary ---
Demographics + + + | Address | [address] | | | [place] [address] | + + + | Home Phone [...] Team Providers + +------+ + | Care Membership Manager Name | Role | Phone | [...] | Diagnoses | Beulah | Edu Pt Camp Assistant | | | | Therapy | CRPS | Janak Martinez MD | [address] | | | | | (complex | [address] | | | | | regional | [address] | Mailcode: | | | | | pain | Mailstop | [facility] | | | | | syndrome), | [id number] | for Health | | | | | lower limb | [place], [place] | and Healing, | | | | | Gait | [address] | Building 1 | | | | | disturbance | Phone: | [place], [place] | | | | | Muscle pain | [phone] | [address] | | | | | Procedures | Fax: | Phone: | | | | | PHYSICAL | [phone] | [phone] | | | | | THERAPY | [...] | | | | [address] | [place] [address] | syndrome), lower | | | | [address] | [phone] | limb (Primary Dx) | | | | [facility] | | | | | | and Healing, | | | | | | Building 1, | | | | | | Floor [place], [place] | | | | | | [address] | | | | | | [phone] | | | +--------+---------+ + + + [...] might be different f rom the original. [id number] BRODY FARAH Date of : 1990 Start of care: 02/14/2012 Date of onset: 02/14/2012 Referring/Attending Practitioner: Janak Riojas MD . Primary/Referral Diagnosis/ICD-9: 355.71B CRPS (complex regional pain syndrome), lower limb Insurance: Payor: [facility] Plan: BCBS OUT OF STATE Product Type: PP O Service period from: 02/14/2012 to: 08/12/2012 Number visits used/authorized: 01/[address] [facility] PHYSICAL THERAPY PROGRESS NOTE SUBJECTIVE: Age: 21 y.o. Sex: female Chief complaint: No chief complaint on file. Current: pt has been doing her neck exercises. She is not shaking as much. Her foot hurts t bruno. Now she is working at [employer] 2-3 hours per week, and spends a [...] status. Guillermo Sanon MSPT [facility] Outpatient Rehabilitation Services Mailcode: Ch3q [address] [facility], [address] [place] [address] documented in this encounter Plan of Treatment Not on filedocumented as of this encounter Procedures + +--------+ + + + | Procedure Name | Priori | Date/Time | Associated Diagnosis | Comments | | | ty | | | | + +--------+ + + + | [place] THERAPEUTIC | Routin | 05/11/2012 | CRPS [...]
--- OUTSIDE RECORDS SUMMARY | ~2020-06-28 | XMS | Encounter Summary ---
Demographics + + + | Address | [address] | | | [place] [address] | + + + | Home Phone | | + + + | Preferred Language | Unknown | + + + | Marital Status | Single | + + + | Synagogue Affiliation | 1073 | + + + | Race | Unknown | + + + | Ethnic Group | Unknown | + + + Author + + + | Author | [facility] | | | and [place] | + + + | Organization | [facility] | | [...] [place] | | | | | [address] | | + + + + + | Bryant Farah | ERICKA | Unknown | | + + + + + Care Team Providers + +------+ + | Care Md Senior Research Scientist Name | Role | Phone | + +------+ + PCP | Unavailable | + +------+ + Encounter Details +--------+ + + + + | Date | Type | Department | Care Team | Description | +--------+ + + + + | 09/12/ | Hospital | [facility] | | | | 2008 | Encounter | [facility] | | | | | [facility]ENTER [address] | | | | | | [place], [place] | | | | | | [address] | | | | | | [phone] | | | +--------+ + + + [...]
--- OUTSIDE RECORDS SUMMARY | ~2020-06-28 | XMS | Encounter Summary ---
Demographics + + + | Address | [address] | | | [place] [address] | + + + | Home Phone [...] Team Providers + +------+ + | Care Ring Packer Name | Role | Phone | [...] Pain Medicine | Diagnoses | Chasity, | Manager Of Security Chh1 | | | | / Pain | Abdominal | MD Kenny | [address] | | | | Management | pain, | [address] | [facility] | | | | | unspecified | [facility] | for Health | | | | | location | Rd | and Healing, | | | | | Procedures | [place], [place] | Building | | | | | CONSULT TO | [address] | 1,15th Floor | | | | | PAIN | | [place], [place] | | | | | MANAGEMENT | | [address] | | | | | | | Phone: | | | | | | | [phone] | | | | | | | Fax: | | | | | | | [phone] | +--------+--------+ + + + + Reason [...] Abdominal | | 2016 | | Center [place] [address] [address] | | pain | | | | [address] [facility] | | | | | | for Health and | | | | | | Healing, [facility] 2 | | | | | | [place], [place] | | | | | | [address] | | | | | | [phone] | | | +--------+ + + + [...]
--- OUTSIDE RECORDS SUMMARY | ~2020-06-28 | XMS | Encounter Summary ---
Demographics + + + | Address | [address] | | | [place] [address] | + + + | Home Phone [...] Team Providers + +------+ + | Care Procurement Intern Name | Role | Phone | [...] | | | | | Ave Mailcode: [facility] | [place], [place] | | | | | [facility] | [address] | | | | | Health and Healing, | [phone] | | | | | [place] [address] | | | | | | [place], [place] | | | | | | [address] | | | | | | [phone] | | | +--------+ + + + [...] Discharge Instructions Instructions Darlin Doyle RN - 12/14/2016[place] [facility] Instructions after Colonoscopy You may resume [...] on weekends and holidays call the Hospital Order Builder Loader toll free 1- [phone] Ext. [phone] or and have the GI doctor workers compensation claims specialist paged. The provider who performed your procedure [...] Farah is a 26 y.o. female MR# [id number] presents today for colonoscopy NPO since midnight [...]
--- OUTSIDE RECORDS SUMMARY | ~2020-06-28 | XMS | Encounter Summary ---
Demographics + + + | Address | [address] | | | [place] [address] | + + + | Home Phone [...] Team Providers + +------+ + | Care Equipment Services Associate Name | Role | Phone | [...] | Diagnoses | Beulah | Edu Pt Regulatory Affairs Strategy Specialist | | | | Therapy | CRPS | Janak Martinez MD | [address] | | | | | (complex | [address] | | | | | regional | [address] | Mailcode: | | | | | pain | Mailstop | [facility] | | | | | syndrome), | [id number] | for Health | | | | | lower limb | [place], [place] | and Healing, | | | | | Gait | [address] | [address] | | | | | disturbance | Phone: | [place], [place] | | | | | Muscle pain | [phone] | [address] | | | | | Procedures | Fax: | Phone: | | | | | PHYSICAL | [phone] | [phone] | | | | | THERAPY | [...] pain | | | | [address] | [place] [address] | syndrome), lower | | | | [address] | [phone] | limb (Primary Dx) | | | | [facility] | | | | | | and Healing, | Specialist, Edu | | | | | Building 1, 1st | Exercise [address] | | | | | Floor [place], [place] | [address] [place], | | | | | [address] | [place] [address] | | | | | [phone] | | | +--------+---------+ + + + [...] might be different f rom the original. [id number] BRODY FARAH Date of : 1990 Start of care: 02/14/2012 Date of onset: 02/14/2012 Referring/Attending Practitioner: Janak Riojas MD . Primary/Referral Diagnosis/ICD-9: 355.71B CRPS (complex regional pain syndrome), lower limb Insurance: Payor: [facility] Plan: BCBS OUT OF STATE Product Type: PP O Service period from: 02/14/2012 to: 08/12/2012 Number visits used/authorized: 02/23 [facility] PHYSICAL THERAPY PROGRESS NOTE SUBJECTIVE: Age: [...] change in their status. Guillermo Sanon MSPT [facility] Outpatient Rehabilitation Services Mailcode: Ch3p [address] [facility], [address] [place] [phone] documented in this encounter Plan of [...]
--- OUTSIDE RECORDS SUMMARY | ~2020-06-28 | XMS | Encounter Summary ---
Demographics + + + | Address | [address] | | | [place] [address] | + + + | Home Phone [...] Team Providers + +------+ + | Care School Cafeteria Cook Head Name | Role | Phone | [...] + + | 12/05/ | Hospital | [facility] | Alex Sanchez, | | | 2019 | Encounter | STAY [address] | ,PhD [address] [employer] | | | | | Courtney Mailcode: [facility] | [address] | | | | | [facility] | [place], [place] | | | | | Health and [facility], | [address] | | | | | [place] [address] | [phone] | | | | | [place], [place] | | | | | | [address] | | | | | | [phone] | | | +--------+ + + + [...] s/p successful DRG trial lead system with [employer] System on 09/25/2018. No changes in H&P, [...] OPERATIVE NOTE Date: December 05, 2018 Location: [facility] [place] | | | Tracie Farah [id number] :1990, presents to clinic | | | for: Dorsal root ganglion stimulator implant PROCEDURE: Dorsal | | | root ganglion stimulator implant PRE-OPERATIVE DIAGNOSIS: Complex | | | regional Pain syndrome type 1 of left lower extremity | | | POST-OPERATIVE DIAGNOSIS: Complex regional Pain syndrome type 1 of | | | left lower extremity ATTENDING PHYSICIAN: Alex Sanchez | | | ROAD CONDUCTOR: Arben Valerio MD ANESTHESIA: sedation by IVIS Cole | | | Carmen, supervised by railroad mechanic Ilir Valdes. | | | FINDINGS: Appropriate [...] sedation. Ms. Farah was escorted to the [facility] | | | [place], where she [...] to the | | | [facility] [employer] career services representative. A test stimulation was performed and [...] recovery. Images were saved, and sent to [employer]. | | | Alex Sanchez (attending) was present for the entire procedure. | | | Arben Valerio MD I was present for the entire procedure | | | (spinal cord stimulator implantation with DRG leads at left L4 and | | | L5) and all bocanegra elements of this visit. I reviewed the | | | documentation of the other JACQUARD LOOM FIXER providers and concur with Dr. | | | Iman's findings. I edited his note. Alex Sanchez, | | | ,PhD [facility] Anesthesiology and Pain Management | | | [facility] | | + + + HCG [...] + + | JOSE ANTONIO MIN | [address] [facility] | [place] [address] | | | OF CARE TESTS | [...]
--- OUTSIDE RECORDS SUMMARY | ~2020-06-28 | XMS | Encounter Summary ---
Demographics + + + | Address | [address] | | | [place] [address] | + + + | Home Phone [...] Providers + +------+ + | Care Office Machines Wirer Name | Role | Phone | [...] | Telephone | Digestive Health | Ava Carbajla | Bowel Clean-out | | 2015 | | Center at [facility] [address] | MD Melissa | | | | | [address] [facility] | | | | | | for Health and | | | | | | Healing, Building 2 | | | | | | [place], [place] | | | | | | [address] | | | | | | [phone] | | | +--------+ + + + [...]
--- OUTSIDE RECORDS SUMMARY | ~2020-06-28 | XMS | Encounter Summary ---
Demographics + + + | Address | [address] | | | [place] [address] | + + + | Home Phone [...] | (ortho question) | | | | [facility] | [facility] | | | | | [address] | [place], [place] | | | | | [facility] | [address] | | | | | and Healing, | [phone] | | | | | | | | | | | Floor [place], [place] | | | | | | [address] | | | | | | [phone] | | | +--------+ + + + [...]
--- OUTSIDE RECORDS SUMMARY | ~2020-06-28 | XMS | Encounter Summary ---
Demographics + + + | Address | [address] | | | [place] [address] | + + + | Home Phone [...] Team Providers + +------+ + | Care Feed Inspection Supervisor Name | Role | Phone | [...] CRPS | Janak Martinez MD | [address] | | | | Management | (complex | [address] | | | | | regional | [address] | Center for | | | | | pain | Mailstop | Health and | | | | | syndrome), | [id number] | Healing, | | | | | lower limb | [place], [place] | Building | | | | | Gait | [address] | 1,15th Floor | | | | | disturbance | Phone: | [place], [place] | | | | | Muscle pain | [phone] | [address] | | | | | Procedures | Fax: | Phone: | | | | | CONSULT TO | [phone] | [phone] | | | | | PAIN CENTER | | Fax: | | | | | | | [phone] | +--------+--------+ + + + + Encounter Details +--------+---------+ + + + | Date | Type | Department | Care Team | Description | +--------+---------+ + + + | 03/20/ | Office | [facility] at [facility] | Shelia Feldman, PhD | Unspecified | | 2011 | Visit | [address] | | adjustment reaction | | | | Center for Health | | (Primary Dx) | | | | and Healing, | | | | | | Building | | | | | | Floor [place], [place] | | | | | | [address] | | | | | | [phone] | | | +--------+---------+ + + + [...] [facility] Name: Tracie Farah MR#: [id number] Date of : 1990 Date: March 20, 2012 Attending Psychologist: SHELIA FELDMAN, PHD CPT: 13042 Duration: 60min Psych: 309.0 Pain: 355.71 Tracie [...] improve cognition (currently taking 1-2 daily at [facility]). She notes that she [...] discretion, not currently planned. SHELIA FELDMAN, PHD Explosives Truck Driver Licensed Clinical Psychologist [facility] Department of Anesthesiology & Perioperative Medicine [facility] [address] [place], [place] [id number] Historical Information: Introduction: Tracie Farah is a 21-year-old woman with >5 year hx of CRPS, R LE.S ocial & Psychiatric History: Tracie Farah lives in [place] in a shared apartment space. She has struggled wi th CRPS for at least 5 years; original injury to her foot was in 2001. In summer 2010 she h ad inpt pain tx at [place] with limited alf benefit. Recent flare; she arrived using crutches [...] She learned some pain management techniques at [place], mainly DB and PMR, which she does [...] Travel is a barrier; she lives in [place] DSM-IV Diagnoses/Impressions: [place] I: 1. 309.9 Unspecified Adjustment Reaction 2. 780.50 Sleep Disturbance [place] II: Deferred. [place] III: Patient Active Problem List Diagnoses CRPS (complex regional pain syndrome), lower limb Gait disturbance Muscle pain Adjustment reaction [place] IV: CRPS pain, pain related debility;difficulty attending class, working; family stres s; stalker ex-bf [place] V: Global Assessment of Functioning = 75 [...] me should questions arise. SHELIA FELDMAN, PHD Explosives Truck Driver Licensed Clinical Psychologist [facility] Department of Anesthesiology & Perioperative Medicine [facility] [address] [place] [address] documented in this enc ounter Plan of Treatment Not on filedocumented as of this encounter Visit Diagnoses + + | Diagnosis | + + | Unspecified adjustment reaction - Primary | + + documented in this encounter
--- OUTSIDE RECORDS SUMMARY | ~2020-06-28 | XMS | Encounter Summary ---
Demographics + + + | Address | [address] | | | [place] [address] | + + + | Home Phone [...] Providers + +------+ + | Care Rn Hematology Name | Role | Phone | + [...] | | syndrome | [place] | [facility] | | | | | type 1 of | Rd | Rd [place], | | | | | left lower | [place], [place] | [place] | | | | | extremity | [address] | [address] | | | | | Procedures | Phone: | Phone: | | | | | REQUEST TO | [phone] | [phone] | | | | | SURGERY | Fax: | Fax: | | | | | HOTEL OR MOTEL MANAGER | [phone] | [phone] | +--------+---------+ + + + + Encounter Details +--------+---------+ + + + | Date | Type | Department | Care Team | Description | +--------+---------+ + + + | 12/07/ | Office | [facility] | Eulogio | Complex regional | | 2019 | Visit | Pain Center at | MD Irene [address] | pain syndrome type 1 | | | | [facility] | [address] [place], | of left lower | | | | [address] | [place] [address] | extremity (Primary | | | | [facility] | [phone] | Dx); S/P insertion | | | | and Healing, | | of spinal cord | | | | Building , | | stimulator | | | | Floor [place], [place] | | | | | | [address] | | | | | | [phone] | | | +--------+---------+ + + + [...] Lujan MD - 12/07/2018 9:10 AM PST [facility] Return Visit Date: 12/07/2018 Chief Complaint Patient presents with Back pain Pain in left leg History of Present Illness: Tracie Farah is a 28 year old female, whose last appoi ntment at the [facility] [place] was December 05, 2018, for a procedure [...] her 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 PATTERNMAKER APPRENTICE WOOD Brief Pain Inventory: (ten= worst possible pain [...] Hemroidectomy Trial spinal cord stimulator leads 08/02/2012 [facility], Surgeon: Janak Riojas MD Cholecystectomy Appendectomy [...] History Social History Narrative Single. Goes to [employer] with a light load. Has been working at [employer], can' t work on [place]. Has roommates. Allergies Allergen Reactions Morphine Anaphylaxis [...] and summary of old medical records (source: [employer]), as summarized in the body of the [...] present for the encounter. Irene Krishnan MD [facility] [place] [id number] [facility], 4th Floor Mail Code: [address] [id number] documented in thi s encounter Plan of Treatment Not on filedocumented as of this encounter Visit Diagnoses + + | Diagnosis | + + | Complex regional pain syndrome type 1 of left lower extremity - Primary | + + | S/P insertion of spinal cord stimulator | + + documented in this encounter
--- OUTSIDE RECORDS SUMMARY | ~2020-06-28 | XMS | Encounter Summary ---
Demographics + + + | Address | [address] | | | [place] [address] | + + + | Home Phone [...] Team Providers + +------+ + | Care Change Attendant Name | Role | Phone | [...] | | [address] [facility] for | [place], [place] | | | | | Health and Healing, | [address] | | | | | | [phone] | | | | | [place], [place] | | | | | | [address] | | | | | | [phone] | | | +--------+ + + + [...] Note | + + | Service Account, Tour Raiser Res In Interface - 03/08/2018 9:42 AM [...]
--- OUTSIDE RECORDS SUMMARY | ~2020-06-28 | XMS | Encounter Summary ---
Demographics + + + | Address | [address] | | | [place] [address] | + + + | Home Phone [...] Team Providers + +------+ + | Care Rest Room Attendant Name | Role | Phone | [...] + | 09/30/ | Telephone | [facility] Ilene | Ilene Bright, | Phone communication | | 2017 | | Pain Center at | MASTIC MAN [address] | | | | | [facility] | [place], [place] | | | | | [address] | [address] | | | | | [facility] | [phone] | | | | | and Healing, | | | | | | Building | | | | | | Floor [facility] [place] | | | | | | [address] | | | | | | [phone] | | | +--------+ + + + [...]
--- OUTSIDE RECORDS SUMMARY | ~2020-06-28 | XMS | Encounter Summary ---
Demographics + + + | Address | [address] | | | [place] [address] | + + + | Home Phone [...] Team Providers + +------+ + | Care Molder Foam Rubber Name | Role | Phone | + [...] | | Pain Center at | ,PhD [address] | denied) | | | | [facility] | [facility] | | | | | [address] | [place], [place] | | | | | [facility] | [address] | | | | | and Martina, | [phone] | | | | | [facility] | | | | | | Floor [place], [place] | | | | | | [address] | | | | | | [phone] | | | +--------+ + + + [...]
--- OUTSIDE RECORDS SUMMARY | ~2020-06-28 | XMS | Encounter Summary ---
Demographics + + + | Address | [address] | | | [place] [address] | + + + | Home Phone [...] Team Providers + +------+ + | Care Patent Searcher Name | Role | Phone | + [...] | | | 2019 | Event | [facility] | MD Juan [address] | | | | | and Healing Surgery | [address] | | | | | Center Admitting | [place], [place] | | | | | Desk Located on the | [address] | | | | | 4th floor [address] | [phone] | | | | | [address] [place], | | | | | | [place] [address] | Arben Valerio MD | | | | | | [address] | | | | | | [address] | | | | | | [place], [place] | | | | | | [address] | | | | | | [phone] | | | | | | | [...]
--- OUTSIDE RECORDS SUMMARY | ~2020-06-28 | XMS | Encounter Summary ---
Demographics + + + | Address | [address] | | | [place] [address] | + + + | Home Phone [...] Providers + +------+ + | Care Well Services Operator Name | Role | Phone | [...] 2016 | | Pain Center at | BANQUET COORDINATOR [address] | | | | | [facility] | [place], [place] | | | | | [address] | [address] | | | | | [facility] | [phone] | | | | | and Healing, | | | | | | Building | | | | | | [place], [place] | | | | | | [address] | | | | | | [phone] | | | +--------+ + + + [...]
--- OUTSIDE RECORDS SUMMARY | ~2020-06-28 | XMS | Encounter Summary ---
Demographics + + + | Address | [address] | | | [place] [address] | + + + | Home Phone [...] Providers + +------+ + | Care High Pressure Firer Name | Role | Phone | + +------+ + | Justo Vazquez MD | PCP | | + +------+ + Encounter Details +--------+ + + + + | Date | Type | Department | Care Team | Description | +--------+ + + + + | 03/12/ | Information Systems Security Developer | [facility] Comprehensive | Alex Sancehz, | Complex regional | | 2019 | | Pain Center at | ,PhD [address] [facility] | pain syndrome type 1 | | | | [facility] | [address] | of left lower | | | | [address] | [place], [place] | extremity; S/P | | | | Center for Health | [address] | insertion of spinal | | | | and Healing, | [phone] | cord stimulator | | | | | | | | | | Floor [place], [place] | | | | | | [address] | | | | | | [phone] | | | +--------+ + + + [...]
--- OUTSIDE RECORDS SUMMARY | ~2020-06-28 | XMS | Encounter Summary ---
Demographics + + + | Address | [address] | | | [place] [address] | + + + | Home Phone [...] Providers + +------+ + | Care Supervisor Lens Generating Name | Role | Phone | + +------+ + | Justo Vazquez MD | PCP | | + +------+ + Encounter Details +--------+ + + + + | Date | Type | Department | Care Team | Description | +--------+ + + + + | 03/18/ | Telephone | [facility] | Kenny Gaspar MD | | | 2017 | | [place] [address] [address] | | | | | | [address] [facility] | | | | | | for Health and | | | | | | [facility], Building 2 | | | | | | [place], [place] | | | | | | [address] | | | | | | [phone] | | | +--------+ + + + [...]
--- OUTSIDE RECORDS SUMMARY | ~2020-06-28 | XMS | Encounter Summary ---
Demographics + + + | Address | [address] | | | [place] [address] | + + + | Home Phone [...] Providers + +------+ + | Care Cloth Doubling Machine Operator Name | Role | Phone [...] | Diagnoses | Beulah | Edu Pt Bi Specialist | | | | Therapy | CRPS | Janak Martinez MD | [address] | | | | | (complex | [address] | | | | | regional | [address] | Mailcode: | | | | | pain | Mailstop | [facility] | | | | | syndrome), | [id number] | for Health | | | | | lower limb | [place], [place] | and Healing, | | | | | Gait | [address] | Building 1 | | | | | disturbance | Phone: | [place], [place] | | | | | Muscle pain | [phone] | [address] | | | | | Procedures | Fax: | Phone: | | | | | PHYSICAL | [phone] | [phone] | | | | | THERAPY | [...] | | | | [address] [place] | [place] [address] | syndrome), lower | | | | [address] | [phone] | limb (Primary Dx) | | | | [facility] | | | | | | and Healing, | | | | | | Building 1, | | | | | | Floor [place], [place] | | | | | | [address] | | | | | | [phone] | | | +--------+---------+ + + + [...] might be different f rom the original. [id number] BRODY FARAH Date of : 1990 Start of care: 02/14/2012 Date of onset: 02/14/2012 Referring/Attending Practitioner: Janak Riojas MD . Primary/Referral Diagnosis/ICD-9: 355.71B CRPS (complex regional pain syndrome), lower limb Insurance: [facility] Plan: BCBS OUT OF STATE Product Type: PP O Service period from: 02/14/2012 to: 08/12/2012 Number visits used/authorized: 03/25 [facility] PHYSICAL THERAPY PROGRESS NOTE SUBJECTIVE: Age: 21 [...] any change in their status. Guillermo [facility] Outpatient Rehabilitation Services Mailcode: Ch3p 4233 [facility], [address] [place] [address] documented in this encounter Plan of Treatment Not on filedocumented as of this encounter Procedures + +--------+ + + + | Procedure Name | Priori | Date/Time | Associated Diagnosis | Comments | | | ty | | | | + +--------+ + + + | ME MANUAL THER | Routin | 06/05/2012 | CRPS (complex | | | TECH,1+REGIONS,EA 15 | e | 5:15 PM | regional pain | | | MIN | | PDT | syndrome), lower | | | | | | limb | | + +--------+ + + + | ME THERAPEUTIC | Routin | 06/05/2012 | CRPS [...]
--- OUTSIDE RECORDS SUMMARY | ~2020-06-28 | XMS | Encounter Summary ---
Demographics + + + | Address | [address] | | | [place] [address] | + + + | Home Phone [...] Team Providers + +------+ + | Care Sole Assessor Name | Role | Phone | [...] + + | 03// | Telephone | [facility] Comprehensive | Alex Sanchez, | Medication (clarify | | 2018 | | Pain Center at | ,PhD [address] | sig on Ketamine) | | | | [facility] | [facility] | | | | | [address] | [place], [place] | | | | | [facility] | [address] | | | | | and Healing, | [phone] | | | | | Building | | | | | | Floor [place], [place] | | | | | | [address] | | | | | | [phone] | | | +--------+ + + + [...]
--- OUTSIDE RECORDS SUMMARY | ~2020-06-28 | XMS | Encounter Summary ---
Demographics + + + | Address | [address] | | | [place] [address] | + + + | Home Phone [...] Providers + +------+ + | Care Tank Cooper Name | Role | Phone | + [...] 2016 | | Pain Center at | [employer] [address] | | | | | [facility] | [place], [place] | | | | | [address] | [address] | | | | | [facility] | [phone] | | | | | and Healing, | | | | | | [facility] | | | | | | [place], [place] | | | | | | [address] | | | | | | [phone] | | | +--------+ + + + [...]
--- OUTSIDE RECORDS SUMMARY | ~2020-06-28 | XMS | Encounter Summary ---
Demographics + + + | Address | [address] | | | [place] [address] | + + + | Home Phone [...] Team Providers + +------+ + | Care Calliope Player Name | Role | Phone | + +------+ + | Justo Vazquez MD | PCP | | + +------+ + Encounter Details +--------+ + + + + | Date | Type | Department | Care Team | Description | +--------+ + + + + | 04/23/ | Pharmacy | [facility] | | | | 2019 | Visit | & [facility] Pharmacy | | | | | | [address] | | | | | | Mailcode: [place] | | | | | | [facility] and | | | | | | Healing, Building 1 | | | | | | [place], [place] | | | | | | [address] | | | | | | [phone] | | | +--------+ + + + [...]
--- OUTSIDE RECORDS SUMMARY | ~2020-06-28 | XMS | Encounter Summary ---
Demographics + + + | Address | [address] | | | [place] [address] | + + + | Home Phone [...] Providers + +------+ + | Care Feed Mill Operator Name | Role | Phone [...] | CRPS | Janak Martinez MD | [facility] [address] | | | | | (complex | [address] | [address] | | | | | regional | [address] | [address] | | | | | pain | Mailstop | [address], | | | | | syndrome), | [address] | Basement | | | | | lower limb | [place], [place] | [place], [place] | | | | | Procedures | [address] | [address] | | | | | [place] BONE &/[place] | Phone: | Phone: | | | | | JOINT | [phone] | [phone] | | | | | IMAGING 3 | Fax: | Fax: | | | | | PHASE | [phone] | [phone] | +--------+--------+ + + + + Encounter Details +--------+ + + + + | Date | Type | Department | Care Team | Description | +--------+ + + + + | 02/13/ | Hospital | Nuclear Medicine | | | | 2011 | Encounter | at [facility] [address] | | | | | | [address] | | | | | | [place], | | | | | | [place], | | | | | | [place] [address] | | | | | | [phone] | | | +--------+ + + + [...]
--- OUTSIDE RECORDS SUMMARY | ~2020-06-28 | XMS | Encounter Summary ---
Demographics + + + | Address | [address] | | | [place] [address] | + + + | Home Phone [...] Providers + +------+ + | Care School Nurse Name | Role | Phone | [...] | | | | | Giuliana Maldonado [place], | | | | | | [place] [address] | | | +--------+ + + + [...]
--- OUTSIDE RECORDS SUMMARY | ~2020-06-28 | XMS | Encounter Summary ---
Demographics + + + | Address | [address] | | | [place] [address] | + + + | Home Phone [...] Team Providers + +------+ + | Care Rug Cleaner Hand Name | Role | Phone | + +------+ + | Justo Vazquez MD | PCP | | + +------+ + Encounter Details +--------+ + + + + | Date | Type | Department | Care Team | Description | +--------+ + + + + | 04/03/ | Telephone | [facility] | Alex Sanchez, | | | 2019 | | Pain Center at | ,PhD [address] | | | | | [facility] | [address] | | | | | [address] | [place], [place] | | | | | [place] for [facility] | [address] | | | | | and Healing, | [phone] | | | | | | | | | | | Floor [place], [place] | | | | | | [address] | | | | | | [phone] | | | +--------+ + + + [...]
--- OUTSIDE RECORDS SUMMARY | ~2020-06-28 | XMS | Encounter Summary ---
Demographics + + + | Address | [address] | | | [place] [address] | + + + | Home Phone [...] Providers + +------+ + | Care Performance Management Consultant Name | Role | Phone [...] | Pain Center at | ,PhD [address] [facility] | sig) | | | | [facility] | [address] | | | | | [address] | [place], [place] | | | | | [facility] | [address] | | | | | and Martina, | [phone] | | | | | [facility] | | | | | | Floor [place], [place] | | | | | | [address] | | | | | | [phone] | | | +--------+ + + + [...]
--- OUTSIDE RECORDS SUMMARY | ~2020-06-28 | XMS | Encounter Summary ---
Demographics + + + | Address | [address] | | | [place] [address] | + + + | Home Phone [...] Providers + +------+ + | Care Communications Billing Analyst Name | Role | Phone | + +------+ + | Justo Vazquez MD | PCP | | + +------+ + Encounter Details +--------+ + + + + | Date | Type | Department | Care Team | Description | +--------+ + + + + | 03/16/ | Telephone | [facility] | Crys Gomez, | | | 2016 | | Center at [facility] [address] | [address] | | | | | [address] [place] | [address] | | | | | [facility] Health and | [place], [place] | | | | | [facility], [facility] 2 | [address] | | | | | [place], [place] | [phone] | | | | | [address] | | | | | | [phone] | | | +--------+ + + + [...]
--- OUTSIDE RECORDS SUMMARY | ~2020-06-28 | XMS | Encounter Summary ---
Demographics + + + | Address | [address] | | | [place] [address] | + + + | Home Phone [...] Team Providers + +------+ + | Care Acid Dumper Name | Role | Phone | + [...] | Diagnoses | Beulah | Edu Pt Mri Technologist | | | | Therapy | CRPS | Janak Martinez MD | [address] | | | | | (complex | [address] | | | | | regional | [address] | Mailcode: | | | | | pain | Mailstop | [facility] | | | | | syndrome), | [id number] | for Health | | | | | lower limb | [place], [place] | and Healing, | | | | | Gait | [address] | Building 1 | | | | | disturbance | Phone: | [place], [place] | | | | | Muscle pain | [phone] | [address] | | | | | Procedures | Fax: | Phone: | | | | | PHYSICAL | [phone] | [phone] | | | | | THERAPY | [...] | | | | [address] | [place] [address] | syndrome), lower | | | | [address] | [phone] | limb (Primary Dx) | | | | [facility] | | | | | | and Healing, | | | | | | Building 1, | | | | | | Floor [place], [place] | | | | | | [address] | | | | | | [phone] | | | +--------+---------+ + + + [...] might be different f rom the original. [id number] BRODY FARAH Date of : 1990 Start of care: 02/14/2012 Date of onset: 02/14/2012 Referring/Attending Practitioner: Janak Riojas MD . Primary/Referral Diagnosis/ICD-9: 355.71B CRPS (complex regional pain syndrome), lower limb Insurance: [facility] Plan: BCBS OUT OF STATE Product Type: PP O Service period from: 02/14/2012 to: 08/12/2012 Number visits used/authorized: 03/25 [facility] PHYSICAL THERAPY PROGRESS NOTE [...] any change in their status. Guillermo [facility]on [facility] Outpatient Rehabilitation Services Mailcode: Ch3p 8829 [facility], [address] [place] [address] documented in this encounter Plan of Treatment Not on filedocumented as of this encounter Procedures + +--------+ + + + | Procedure Name | Priori | Date/Time | Associated Diagnosis | Comments | | | ty | | | | + +--------+ + + + | NM MANUAL THER | Routin | 06/05/2012 | CRPS (complex | | | TECH,1+REGIONS,EA 15 | e | 5:15 PM | regional pain | | | MIN | | PDT | syndrome), lower | | | | | | limb | | + +--------+ + + + | NM THERAPEUTIC | Routin | 06/05/2012 | CRPS [...]
--- OUTSIDE RECORDS SUMMARY | ~2020-06-28 | XMS | Encounter Summary ---
Demographics + + + | Address | [address] | | | [place] [address] | + + + | Home Phone [...] Team Providers + +------+ + | Care Operations Expert Name | Role | Phone | + +------+ + | Justo Vazquez MD | PCP | | + +------+ + Encounter Details +--------+ + + + + | Date | Type | Department | Care Team | Description | +--------+ + + + + | 12/02/ | Document-Sc | Health Information | Unknown . | | | 2017 | anned | Services [address] | | | | | | [address] | | | | | | Mailcode: [id number] | | | | | | [facility] | | | | | | [place], [place] | | | | | | [address] | | | | | | [phone] | | | +--------+ + + + [...]
--- OUTSIDE RECORDS SUMMARY | ~2020-06-28 | XMS | Encounter Summary ---
Demographics + + + | Address | [address] | | | [place] [address] | + + + | Home Phone [...] Providers + +------+ + | Care Computer Instructor Name | Role | Phone | [...] + + | 02/21/ | Telephone | [facility] | Alex Sanchez, | Medication Refill | | 2018 | | Pain Center at | ,PhD [address] | Request (ketamine- | | | | [facility] | [address] | mail script to | | | | [address] | [place], [place] | patient) | | | | [facility] | [address] | | | | | and Healing, | [phone] | | | | | | | | | | | Floor [place], [place] | | | | | | [address] | | | | | | [phone] | | | +--------+ + + + [...]
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
--- OUTSIDE RECORDS SUMMARY | ~2020-06-28 | XMS | Encounter Summary ---
Demographics + + + | Address | [address] | | | [place] [address] | + + + | Home Phone [...] Team Providers + +------+ + | Care Aoc Director Combat Plans Officer Name | Role | Phone | [...] Rd | | | | | | [place], [place] | | | | | | [address] | | | +--------+ + + + [...]
--- OUTSIDE RECORDS SUMMARY | ~2020-06-28 | XMS | Encounter Summary ---
Demographics + + + | Address | [address] | | | [place] [address] | + + + | Home Phone [...] Team Providers + +------+ + | Care See Supervisor Name | Role | Phone | [...] ogy | | Ava Torres, | [address] | | | | | Constipation | [address] | [address] | | | | | , | Mook Shane | [place] | | | | | unspecified | [address] | Health and | | | | | constipation | [facility] [place] | Healing, | | | | | type | [address] | [address] | | | | | Procedures | | [place], [place] | | | | | CONSULT TO | | [address] | | | | | GI PROCEDURE | | Phone: | | | | | UNIT: | | [phone] | | | | | ANORECTAL | | Fax: | | | | | MANOMETRY | | [phone] | | | | | OR ANAL | | | | | | | PRESSURE | | | | | | | RECORD | | | +--------+--------+ + + + + Encounter Details +--------+ + + + + | Date | Type | Department | Care Team | Description | +--------+ + + + + | 09/14/ | Hospital | [facility] | Nurse, Gip [address] | | | 2016 | Encounter | [facility] [address] [facility] | | | | | [facility] for | Road [place], [place] | | | | | Health and Healing, | [address] | | | | | [address] | | | | | | [place], [place] | | | | | | [address] | | | | | | [phone] | | | +--------+ + + + [...]
--- OUTSIDE RECORDS SUMMARY | ~2020-06-28 | XMS | Encounter Summary ---
Demographics + + + | Address | [address] | | | [place] [address] | + + + | Home Phone [...] Providers + +------+ + | Care Information Systems Security Specialist Name | Role | Phone | [...] Medication Question | | 2016 | | [place] [address] [address] | | | | | | [address] [facility] | | | | | | for Health and | | | | | | Healing, [facility] 2 | | | | | | [place], [place] | | | | | | [address] | | | | | | [phone] | | | +--------+ + + + [...]
--- OUTSIDE RECORDS SUMMARY | ~2020-06-28 | XMS | Encounter Summary ---
Demographics + + + | Address | [address] | | | [place] [address] | + + + | Home Phone [...] Team Providers + +------+ + | Care Stretching Machine Operator Name | Role | Phone [...] | | | regional | [place] | [address] | | | | | pain | FAMILY | [address] | | | | | syndrome), | MEDICINE P | [id number] | | | | | lower limb | [address] | [place], [place] | | | | | Pain in | [place], | [address] | | | | | joint, lower | [place] [address] | Phone: | | | | | leg | Phone: | [phone] | | | | | Procedures | [phone] | Fax: | | | | | REQUEST TO | Fax: | [phone] | | | | | SURGERY | [phone] | | | | | | LAY OUT MAKER | | | +--------+--------+ + + + [...] | | | sympathetic | [place] | [address]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 | FAMILY | [address] | | | | | of lower | MEDICINE P | [id number] | | | | | limb | [address] | [place], [place] | | | | | | [place], | [address] | | | | | | [place] [address] | Phone: | | | | | | Phone: | [phone] | | | | | | [phone] | Fax: | | | | | | Fax: | [phone] | | | | | | [phone] | | +--------+--------+ + + + + Encounter Details +--------+---------+ + + + | Date | Type | Department | Care Team | Description | +--------+---------+ + + + | 06/06/ | Office | [facility] Comprehensive | Dale Cantu, | CRPS (complex | | 2011 | Visit | Pain Center at | MD [address] [facility] | regional pain | | | | [facility] | [facility] [id number] | syndrome), lower | | | | [address] | [place], [place] | limb; Pain in joint, | | | | [facility] | [address] | lower leg | | | | and Healing, | [phone] | | | | | | | | | | | Floor [place], [place] | | | | | | [address] | | | | | | [phone] | | | +--------+---------+ + + + [...] Dale Cantu MD - 06/06/2012 11:49 [facility] Pre-Procedure Instructions: The procedure you discussed with your doctor is called: SCS TRIAL LUMBAR [facility]. Please make sure this is scheduled with the [employer]. Please bring a interstate bus driver with you. We may give you medications that make you drowsy or otherw ise unsafe to drive. If you do not have a interstate bus driver, we will not be able to do your procedure. DO NOT EAT ANYTHING AFTER MIDNIGHT If your appointment is after 1 PM , you may have a very light, low fat breakfast, such as h senior living a piece of dry toast or a [...] PLEASE CONTACT THE COMPREHENSIVE PAIN CENTER AT [phone]) FOR QUESTIONS OR IF YOU NEED TO CANCEL YOUR APPOINTMENT. [facility] Comprehensive Pain Center documented in [...] not signed. Given information. DALE CANTU MD Oil Field Technician, [facility] X Ray Service Engineer, Pain Medicine Professor, Anesthesiology & Perioperative Medicine ollHomer manriquez MD - 06/06/2012 11:17 AM PDT [facility] Comprehensive [...] and a pain drawing which I reviewed. POT PUNCHER Brief Pain Inventory: (ten= worst possible pain [...] The Review of Systems obtained by the BEN DAY ARTIST was reviewed. Additional Review of Systems: Bones, [...] up [facility]. Dale Cantu at [facility] today for left foot CRPS which began [...] therapy Homer Elaine MD Pain Medicine Fellow [facility] Pain [place] Evelia Parsons - 11:07 AM PDTCMA History: [...]
--- OUTSIDE RECORDS SUMMARY | ~2020-06-28 | XMS | Encounter Summary ---
Demographics + + + | Address | [address] | | | [place] [address] | + + + | Home Phone | | + + + | Preferred Language | Unknown | + + + | Marital Status | Single | + + + | Uatsdin Affiliation | 1073 | + + + | Race | Unknown | + + + | Ethnic Group | Unknown | + + + Author + + + | Author | [facility] | | | and [place] | + + + | Organization | [facility] | [...] [place] | | | | | [address] | | + + + + + | Bryant Farah | ECON | Unknown | | + + + + + Care Team Providers + +------+ + | Care Pan Operator Name | Role | Phone | + +------+ + PCP | Unavailable | + +------+ + Encounter Details +--------+ + + + + | Date | Type | Department | Care Team | Description | +--------+ + + + + | 03/20/ | Hospital | [facility] | Ulices Hayes, | 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 T his also failed to provide adequate [...] stable condition. She will follow-up with her [facility] physician for continued medical management. [...] 03/22/131929 Date of Service: 03/22/131920 Status: Signed Student Success Counselor: Ava Sue RN (Registered Nurse) Patient tolerated [...] 03/22/131854 Date of Service: 03/22/131854 Status: Signed Student Success Counselor: Ava Sue RN (Registered Nurse) Discharge teaching [...] 0657 Date of Service: 03/22/13651 Status: Signed Student Success Counselor: Ulices Hayes MD (Physician) [facility] Service: Interventional Pain Management Pre-Operative History [...] Author: JUSTIN Ospina Service: (none) Author Type: [employer] Filed: 03/21/131035 Date of Service: 03/21/131031 Status: Addendum Student Success Counselor: JUSTIN Ospina ([employer]) Related Notes: Original Note by JUSTIN Ospina ([employer]) filed at 03/21/13 1 036 Met w/22yo F Pt who lives w/parents in [place], [place]. Pt lives in two story house [...] home. Pt has info for financial co [employer] Brock MD - 03/21/2013 7:27 AM PDT Progress Notes by Ulices Hayes MD at 03/21/13726 Author: Ulices Hayes MD Service: Interventional Pain Management Author Type: Physic deya Filed: 03/21/13 0735 Date of Service: 03/21/13726 Status: Signed Student Success Counselor: Ulices Hayes MD (Physician) [facility] Service: Interventional Pain Management Pre-Operative History [...] 03/21/1346 Date of Service: 03/21/13639 Status: Signed Student Success Counselor: Darlin Orlando RN (Registered Nurse) Pt had [...] Date of Service: 03/19/13 1034 Status: Addendum Student Success Counselor: Ulices Hayes MD (Physician) Related Notes: Original Note by Nataliia Lindsey RN (Registered Nurse) filed at 03/19/13 1 049 [facility] Service: Interventional Pain Management History and [...] since. She has undergone extensive therapy at [facility] at pain clinics in [place] as well and [place], [place]. She has had sympathetic nerv e [...] oriented x4. Head: Normocephalic and atraumatic. Eyes: [place] conjunctiva and sclera clear Mouth: No deformity [...] since. She has undergone extensive therapy at [facility] at pain clinics in [place] as well and [place], [place]. She has had sympathetic nerve blocks [...] 03/22/13838 Date of Service: 03/22/13838 Status: Signed Student Success Counselor: Ava Sue RN (Registered Nurse) Problem: Pain [...] Date of Service: 03/22/13 0215 Status: Signed Student Success Counselor: Marleen Sheppard RN (Registered Nurse) Problem: Pain [...] 1058 Date of Service: 03/21/131057 Status: Signed Student Success Counselor: Ava Sue RN (Registered Nurse) Problem: Pain [...] 03/20/132153 Date of Service: 03/20/131899 Status: Signed Student Success Counselor: Justo Romeo RN (Registered Nurse) Problem: Pain [...] Note by Ulices Hayes MD at 03/20/13 1125 Author: Ulices Hayes MD Service: Interventional Pain Management Author Type: Physic deya Filed: 03/20/13 1132 Date of Service: 03/20/131123 Status: Signed Student Success Counselor: Ulices Hayes MD (Physician) [facility] Service: Interventional Pain Management Operative Note Pre-operative Diagnosis: #1. Complex regional pain syndrome. #2. Chronic pain syndrome Post-operative Diagnosis: Same Procedure(s): Placement of intrathecal catheter for trial of intrathecal pain medications for pain control. Surgeon: ULICES HAYES MD Mortician Investigator(s): none Anesthesia: Moderate sedation and local anesthesia. [...]
--- OUTSIDE RECORDS SUMMARY | ~2020-06-28 | XMS | Encounter Summary ---
Demographics + + + | Address | [address] | | | [place] [address] | + + + | Home Phone [...] Providers + +------+ + | Care Pipe Organ Technician Name | Role | Phone | [...] | | | Spasticity | Ave | [facility] [place] | | | | | Procedures | [facility] [place] | [address] | | | | | CONSULT TO | [address] | Phone: | | | | | PAIN | Phone: | [phone] | | | | | MANAGEMENT | [phone] | Fax: | | | | | | Fax: | [phone] | | | | | | [phone] | | +--------+---------+ + + + + [...] | | MD Celia | MD Brendan [address] | | | | | Fibromyalgia | [address] | [address] | | | | | Spasticity | Ave | [address] | | | | | Epigastric | [place], [place] | Rd [place], | | | | | pain | [address] | [place] | | | | | Procedures | Phone: | [address] | | | | | REQUEST TO | [phone] | Phone: | | | | | SURGERY | Fax: | [phone] | | | | | WATERSHED PROGRAM MANAGER | [phone] | Fax: | | | | | NE INJECT | | [phone] | | | | | TRIGGER | | | | | | | POINT, 1 [place] | | | | | | | 2 NE INJECT | | | | | | [...] Pain Medicine | Diagnoses | Chasity, | Cruise Coordinator Chh1 | | | | / Pain | Abdominal | MD Kenny | [address] | | | | Management | pain, | [address] | Ave Center | | | | | unspecified | [facility] | for Health | | | | | location | Rd | and Healing, | | | | | Procedures | [place], [place] | Building | | | | | CONSULT TO | [address] | 1,15th Floor | | | | | PAIN | | [place], [place] | | | | | MANAGEMENT | | [address] | | | | | | | Phone: | | | | | | | [phone] | | | | | | | Fax: | | | | | | | [phone] | +--------+--------+ + + + + Encounter Details +--------+---------+ + + + | Date | Type | Department | Care Team | Description | +--------+---------+ + + + | 10/11/ | Office | [facility] Comprehensive | Vern Robertson, | Epigastric pain | | 2017 | Visit | Pain Center at | [employer] [address] | (Primary Dx); | | | | [facility] | [place], [place] | Spasticity | | | | [address] | [address] | | | | | [place] for [facility] | [phone] | | | | | and Healing, | | | | | | Building | | | | | | Floor [place], [place] | | | | | | [address] | | | | | | [phone] | | | +--------+---------+ + + + [...] true warrior! * Please sign up for [employer]. This is the best way to communicate with me. It will save you time in the long run. The procedure you discussed with your doctor is called: Trigger point injection of abdomina l scar. Please make sure this is scheduled with the Director Industrial. PRE-PROCEDURE INSTRUCTIONS 1. Please bring a pile driver operator helper with you as we may give you medications that impair your ability to drive. This is necessary even if you do not receive sedation. You may take a taxi or ri [employer] if you are accompanied by a responsible [...] or blood thinning medications (other than aspirin), [facility] doctor who is doing your procedure will communicate with the provider who is prescribing y our anticoagulant therapy. If you do not have clear instructions on what to do with your an ticoagulant by 2 weeks before your procedure, please contact [facility] to cl arify your instructions. The phone number for questions or concerns is [phone]. * Consider Lidoderm topical or compound prescription [...] muscle hyper tonicity. * Consider increasing your White Deer 3 fats. White Deer-3 fats are precursors to mediators of inflammation [...] oil if approved by your PCP or indoor landscaper/gardener. * Eliminate High Fructose [place] Syrup and Sugar from your diet as [...] review treatment plan. * Follow up with [facility] as needed. It was [...] NP - 1 12/11/2016 1:15 PM PST [facility] Return Visit Date: 10/11/2017 Chief Complaint Patient presents with Abdominal pain Back pain Foot pain History of Present Illness: Tracie Farah is a 27 year old female, whose last appoi ntment at the [facility] [place] was 07/11/17 with TERESA Clark, for a [...] She reports multiple diagnostic tests conducted at [facility] in [place], [place] including barium swallow and Hydrogen breath [...] Torodol shots: only form of symptom relief. CAR SHAGGER Brief Pain Inventory: (ten= worst possible pain [...] History Social History Narrative Single. Goes to [employer] with a light load. Has been working at [employer], can' t work on crEnergyches. Has roommates. Allergies Allergen Reactions Morphine Anaphylaxis [...] by physician. Concentration is 150mg/mL. Compounded by [facility] ) LAMOTRIGINE 200 MG TABLET Take [...] GRAM-5.86 GRAM SOLUTION Take as directed by [facility] Digestive [facility]- 2 gallon bowel prep POLYETHYLENE GLYCOL [...] reviewed. - Review old medical records (from [facility]). Pertinent findings include: abdominal surger y [...] review treatment plan. * Follow up with [facility] as needed. IGuillermo am scribing for Vern Robertson NP on 10/11/2017 I have reviewed and verified the above scribed note of my visit with this patient as record ed by Guillermo Hope. Vern Robertson NP [facility] AT [facility] 15TH FLOOR [address] Mail Code: Ch15p [place] [address] documented in this e ncounter Plan of Treatment Not on filedocumented as of this encounter Visit Diagnoses + + | Diagnosis | + + | Epigastric pain - Primary Abdominal pain, epigastric | + + | Spasticity Abnormal involuntary movements | + + documented in this encounter
--- OUTSIDE RECORDS SUMMARY | ~2020-06-28 | XMS | Encounter Summary ---
Demographics + + + | Address | [address] | | | [place] [address] | + + + | Home Phone [...] Providers + +------+ + | Care Glass Processing Worker Name | Role | Phone | + +------+ + | Justo Vazquez MD | PCP | | + +------+ + Encounter Details +--------+ + + + + | Date | Type | Department | Care Team | Description | +--------+ + + + + | 07/30/ | Telephone | [facility] [[email or web address]] | Alex Sanchez, | | | 2019 | | Pain Center at | ,PhD [address] | | | | | [facility] | [address] | | | | | [address] | [place], [place] | | | | | [facility] | [address] | | | | | and Healing, | [phone] | | | | | | | | | | | Floor [place], [place] | | | | | | [address] | | | | | | [phone] | | | +--------+ + + + [...]
--- OUTSIDE RECORDS SUMMARY | ~2020-06-28 | XMS | Encounter Summary ---
Demographics + + + | Address | [address] | | | [place] [address] | + + + | Home Phone [...] Providers + +------+ + | Care Supervisor Christmas Tree Farm Name | Role | Phone | [...] Closed | | Orthopedics | Diagnoses | [place], | [facility] | | | | | Adjustment | Ranjeet Odom MD | Chh1 [address] | | | | | disorder, | [address] | [address] | | | | | unspecified | Ave | Center for | | | | | type | [facility] [place] | Health and | | | | | Procedures | [address] | Healing, | | | | | CONSULT TO | Phone: | Building 1, | | | | | BEHAVIORAL | [phone] | 12th Floor | | | | | HEALTH/PSYCH | Fax: | [place], [place] | | | | | CHRISTINA - | [phone] | [address] | | | | | ADULT | | Phone: | | | | | | | [phone] | | | | | | | Fax: | | | | | | | [phone] | +--------+--------+ + + + + Reason [...] | | syndrome | [address] | [place], [place] | | | | | type 1 of | Rd | [address] | | | | | left lower | [place], [place] | Phone: | | | | | extremity | [address] | [phone] | | | | | Procedures | Phone: | Fax: | | | | | CONSULT TO | [phone] | [phone] | | | | | ORTHOPEDICS | Fax: | | | | | | AND | [phone] | | | | | | REHABILITATI [...] | 2018 | Visit | Faculty at [place] | [address] | (Primary Dx); Left | | | | for Health and | [place], [place] | ankle pain, | | | | Healing [address] | [address] | unspecified | | | | [facility] for | [phone] | chronicity; | | | | Health and Healing, | | Adjustment disorder, | | | | Building | | unspecified type | | | | Floor [place], [place] | | | | | | [address] | | | | | | [phone] | | | +--------+---------+ + + + [...] Hemroidectomy Trial spinal cord stimulator leads 08/02/2012 [facility], Surgeon: Janak Riojas MD Cholecystectomy Appendectomy [...] by physician. Concentration is 150mg/mL. Compounded by [employer] ([phone]) levonorgestrel (MIRENA) 20 mcg/24 hr Intrauterine IUD [...] soln Take as directed by [facility] sofatutor [facility]- 2 gallon bowel prep polyethylene glycol [...] [facility] and personally formulated the plan [...] become. f/u open ended Ranjeet Amanda M.D. News Intern Foot and Ankle Surgery Department of Orthopedics & Rehabilitation [facility] [phone] >60 mins face to face consultation was [...]
--- OUTSIDE RECORDS SUMMARY | ~2020-06-28 | XMS | Encounter Summary ---
Demographics + + + | Address | [address] | | | [place] [address] | + + + | Home Phone [...] Team Providers + +------+ + | Care Compressor Mechanic Name | Role | Phone | + +------+ + | Justo Vazquez MD | PCP | | + +------+ + Encounter Details +--------+ + + + + | Date | Type | Department | Care Team | Description | +--------+ + + + + | 09/25/ | Hospital | Radiology/Imaging | Aleta Rebollar MD 5153 | | | 2018 | Encounter | Lab at [facility] [address] | [address] | | | | | [address] [facility] for | [place], [place] | | | | | Health and Healing, | [address] | | | | | [address] | [phone] | | | | | Floor [place], [place] | | | | | | [address] | | | | | | [phone] | | | +--------+ + + + [...]
--- OUTSIDE RECORDS SUMMARY | ~2020-06-28 | XMS | Encounter Summary ---
Demographics + + + | Address | [address] | | | [place] [address] | + + + | Home Phone [...] Team Providers + +------+ + | Care Pickling Machine Operator Name | Role | Phone [...] | 2017 | | Center at [facility] [address] | MD Melissa | Marker instructions) | | | | [address] [facility] | | | | | | for Health and | | | | | | Healing, Building 2 | | | | | | [place], [place] | | | | | | [address] | | | | | | [phone] | | | +--------+ + + + [...]
--- OUTSIDE RECORDS SUMMARY | ~2020-06-28 | XMS | Encounter Summary ---
Demographics + + + | Address | [address] | | | [place] [address] | + + + | Home Phone [...] Team Providers + +------+ + | Care Turnstile Collector Name | Role | Phone | [...] | | 2017 | | Center at [facility] [address] | | Review | | | | [facility] | | | | | | for Health and | | | | | | [facility], [facility] 2 | | | | | | [place], [place] | | | | | | [address] | | | | | | [phone] | | | +--------+ + + + [...]
--- OUTSIDE RECORDS SUMMARY | ~2020-06-28 | XMS | Encounter Summary ---
Demographics + + + | Address | [address] | | | [place] [address] | + + + | Home Phone [...] Providers + +------+ + | Care Optical Goods Worker Name | Role | Phone | + +------+ + | Justo Vazquez MD | PCP | | + +------+ + Encounter Details +--------+ + + + + | Date | Type | Department | Care Team | Description | +--------+ + + + + | 12/28/ | Medical Doctor | [facility] Comprehensive | Alex Sanchez, | Arthralgia of lower | | 2018 | | Pain Center at | ,PhD [address] | leg, unspecified | | | | [facility] | [address] | laterality (Primary | | | | [address] | [place], [place] | Dx) | | | | Center for Health | [address] | | | | | and Healing, | [phone] | | | | | | | | | | | Floor [place], [place] | | | | | | [address] | | | | | | [phone] | | | +--------+ + + + [...]
--- OUTSIDE RECORDS SUMMARY | ~2020-06-28 | XMS | Encounter Summary ---
Demographics + + + | Address | [address] | | | [place] [address] | + + + | Home Phone [...] Team Providers + +------+ + | Care Kindergarten Prep Teacher Name | Role | Phone | [...] Vomiting; | | 2016 | | Center [place] [address] [address] | | Constipation; | | | | [address] | | Abdominal pain | | | | for Health and | | | | | | Healing, Building 2 | | | | | | [place], [place] | | | | | | [address] | | | | | | [phone] | | | +--------+ + + + [...]
--- OUTSIDE RECORDS SUMMARY | ~2020-06-28 | XMS | Encounter Summary ---
Demographics + + + | Address | [address] | | | [place] [address] | + + + | Home Phone [...] Team Providers + +------+ + | Care Claim Taker Name | Role | Phone | + [...] | | 2016 | | Center at [facility] [address] | MD Melissa | | | | | [address] | | | | | | for Health and | | | | | | Healing, Building 2 | | | | | | [place], [place] | | | | | | [address] | | | | | | [phone] | | | +--------+ + + + [...]
--- OUTSIDE RECORDS SUMMARY | ~2020-06-28 | XMS | Encounter Summary ---
Demographics + + + | Address | [address] | | | [place] [address] | + + + | Home Phone [...] Providers + +------+ + | Care Head Start Teacher Name | Role | Phone | [...] | Diagnoses | Beulah | Edu Pt Retail Reset Merchandiser | | | | Therapy | CRPS | Janak Martinez MD | Chh1 [address] | | | | | (complex | [address] | | | | | regional | [address] | Mailcode: | | | | | pain | Mailstop | [facility] | | | | | syndrome), | [id number] | for Health | | | | | lower limb | [place], [place] | and Healing, | | | | | Gait | [address] | Building 1 | | | | | disturbance | Phone: | [place], [place] | | | | | Muscle pain | [phone] | [address] | | | | | Procedures | Fax: | Phone: | | | | | PHYSICAL | [phone] | [phone] | | | | | THERAPY | [...] | | | | [place] | [place] [address] | syndrome), lower | | | | [address] | [phone] | limb (Primary Dx) | | | | [facility] | | | | | | and Healing, | | | | | | Building 1, | | | | | | Floor [place], [place] | | | | | | [address] | | | | | | [phone] | | | +--------+---------+ + + + [...] might be different f rom the original. [id number] BRODY FARAH Date of : 1990 Start of care: 02/14/2012 Date of onset: 02/14/2012 Referring/Attending Practitioner: Janak Riojas MD . Primary/Referral Diagnosis/ICD-9: 355.71B CRPS (complex regional pain syndrome), lower limb Insurance: Payor: [facility] Plan: BCBS OUT OF STATE Product Type: PP O Service period from: 02/14/2012 to: 08/12/2012 Number visits used/authorized: 04/25 [facility] PHYSICAL THERAPY PROGRESS NOTE SUBJECTIVE: Age: [...] change in their status. Guillermo Sanon MSPT [facility] Outpatient Rehabilitation Services Mailcode: Ch3p [address] [facility], [address] [place] [address] documented in this encounter Plan of [...]
--- OUTSIDE RECORDS SUMMARY | ~2020-06-28 | XMS | Encounter Summary ---
Demographics + + + | Address | [address] | | | [place] [address] | + + + | Home Phone [...] Providers + +------+ + | Care Director Patient Name | Role | Phone | + [...] 2017 | | Pain Center at | WIRE COMMUNICATIONS ENGINEER [address] | | | | | [facility] | [place], [place] | | | | | [address] | [address] | | | | | [facility] | [phone] | | | | | and Healing, | | | | | | Building | | | | | | [facility] [place] | | | | | | [address] | | | | | | [phone] | | | +--------+ + + + [...]
--- OUTSIDE RECORDS SUMMARY | ~2020-06-28 | XMS | Encounter Summary ---
Demographics + + + | Address | [address] | | | [place] [address] | + + + | Home Phone [...] Providers + +------+ + | Care Traffic Control Flagger Name | Role | Phone | + [...] | | syndrome | [address] | [facility] | | | | | type 1 of | Rd | Rd [place], | | | | | left lower | [place], [place] | [place] | | | | | extremity | [address] | [address] | | | | | Procedures | Phone: | Phone: | | | | | REQUEST TO | [phone] | [phone] | | | | | SURGERY | Fax: | Fax: | | | | | ARTIFICIAL BREEDING DISTRIBUTOR | [phone] | [phone] | +--------+---------+ + + + + Encounter Details +--------+---------+ + + + | Date | Type | Department | Care Team | Description | +--------+---------+ + + + | 12/07/ | Office | [facility] Comprehensive | Eulogio | Complex regional | | 2019 | Visit | Pain Center at | MD Irene [address] | pain syndrome type 1 | | | | [facility] | [address] [place], | of left lower | | | | [address] | [place] [address] | extremity (Primary | | | | [facility] | [phone] | Dx); S/P insertion | | | | and Healing, | | of spinal cord | | | | Building , | | stimulator | | | | Floor [place], [place] | | | | | | [address] | | | | | | [phone] | | | +--------+---------+ + + + [...] Lujan MD - 12/07/2018 9:10 AM PST [facility] Return Visit Date: 12/07/2018 Chief Complaint Patient presents with Back pain Pain in left leg History of Present Illness: Tracie Farah is a 28 year old female, whose last appoi ntment at the [email or web address] [place] was December 05, 2018, for a procedure [...] her 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 REPAIRER SASH AND DOOR Brief Pain Inventory: (ten= worst possible pain [...] Hemroidectomy Trial spinal cord stimulator leads 08/02/2012 [facility], Surgeon: Janak Riojas MD Cholecystectomy Appendectomy Other [...] History Social History Narrative Single. Goes to [employer] with a light load. Has been working at [employer], can' t work on [employer]. Has roommates. Allergies Allergen Reactions Morphine Anaphylaxis [...] and summary of old medical records (source: [employer]), as summarized in the body of the [...] present for the encounter. Irene Krishnan MD [facility] COMPRE[facility]ENSIVE [facility] [place] [id number] [facility], 4th Floor Mail Code: [address] [id number] documented in thi s encounter Plan of Treatment Not on filedocumented as of this encounter Visit Diagnoses + + | Diagnosis | + + | Complex regional pain syndrome type 1 of left lower extremity - Primary | + + | S/P insertion of spinal cord stimulator | + + documented in this encounter
--- OUTSIDE RECORDS SUMMARY | ~2020-06-28 | XMS | Encounter Summary ---
Demographics + + + | Address | [address] | | | [place] [address] | + + + | Home Phone [...] + +------+ + | Care Professor Of Geography Name | Role | Phone | + +------+ + | Justo Vazquez MD | PCP | | + +------+ + Encounter Details +--------+ + + + + | Date | Type | Department | Care Team | Description | +--------+ + + + + | 01/12/ | Telephone | Digestive Health | Kenny Gaspar MD | | | 2016 | | [place] [address] [address] | | | | | | [address] [facility] | | | | | | for Health and | | | | | | [facility], Building 2 | | | | | | [place], [place] | | | | | | [address] | | | | | | [phone] | | | +--------+ + + + [...]
--- OUTSIDE RECORDS SUMMARY | ~2020-06-28 | XMS | Encounter Summary ---
Demographics + + + | Address | [address] | | | [place] [address] | + + + | Home Phone [...] | Records | [address] [facility] | [phone] | | | | | [address] | | | | | | [place], [place] | | | | | | [address] | | | +--------+ + + + [...]
--- OUTSIDE RECORDS SUMMARY | ~2020-06-28 | XMS | Encounter Summary ---
Demographics + + + | Address | [address] | | | [place] [address] | + + + | Home Phone [...] Providers + +------+ + | Care Material Liaison Name | Role | Phone | [...] | | | | regional | ,PhD [address] | | | | | | pain | [address] | | | | | | syndrome | [address] | | | | | | type 1 of | Rd | | | | | | left lower | [place], [place] | | | | | | extremity | [address] | | | | | | Other | Phone: | | | | | | chronic pain | [phone] | | | | | | S/P | Fax: | | | | | | insertion of | [phone] | | | | | | spinal [...] | | | | regional | ,PhD [address] | | | | | | pain | [address] | | | | | | syndrome | [address] | | | | | | type 1 of | Rd | | | | | | left lower | [place], [place] | | | | | | extremity | [address] | | | | | | Other | Phone: | | | | | | chronic pain | [phone] | | | | | | S/P | Fax: | | | | | | insertion of | [phone] | | | | | | spinal [...] + + | 04/26/ | Telephone | [facility] Comprehensive | Alex Sanchez, | | | 2019 | | Pain Center at | ,PhD [address] | | | | | [facility] | [address] | | | | | [address] | [place], [place] | | | | | [facility] | [address] | | | | | and Healing, | [phone] | | | | | | | | | | | Floor [place], [place] | | | | | | [address] | | | | | | [phone] | | | +--------+ + + + [...]
--- OUTSIDE RECORDS SUMMARY | ~2020-06-28 | XMS | Encounter Summary ---
Demographics + + + | Address | [address] | | | [place] [address] | + + + | Home Phone [...] Providers + +------+ + | Care Briquette Operator Name | Role | Phone | [...] | | 2017 | | Center at [facility] [address] | | pain | | | | [address] [facility] | | | | | | for Health and | | | | | | Healing, Building [address] | | | | | | [place], [place] | | | | | | [address] | | | | | | [phone] | | | +--------+ + + + [...]
--- OUTSIDE RECORDS SUMMARY | ~2020-06-28 | XMS | Encounter Summary ---
Demographics + + + | Address | [address] | | | [place] [address] | + + + | Home Phone [...] Providers + +------+ + | Care Sheet Catcher Name | Role | Phone | + +------+ + | Justo Vazquez MD | PCP | | + +------+ + Encounter Details +--------+ + + + + | Date | Type | Department | Care Team | Description | +--------+ + + + + | 12/07/ | Pharmacy | [facility] | | | | 2019 | Visit | & [facility] | | | | | | [address] | | | | | | Mailcode: [place] | | | | | | [facility] Health and | | | | | | Healing, Building 1 | | | | | | [place], [place] | | | | | | [address] | | | | | | [phone] | | | +--------+ + + + [...]
--- OUTSIDE RECORDS SUMMARY | ~2020-06-28 | XMS | Encounter Summary ---
Demographics + + + | Address | [address] | | | [place] [address] | + + + | Home Phone [...] Team Providers + +------+ + | Care Alligator Hunter Name | Role | Phone | + +------+ + | Allegra Gandhi | PCP | | + +------+ + Encounter Details +--------+ + + + + | Date | Type | Department | Care Team | Description | +--------+ + + + + | 02/13/ | Hospital | Nuclear Medicine | | | | 2011 | Encounter | at [facility] [address] | | | | | | [address] | | | | | | [address], | | | | | | [place], | | | | | | [place] [address] | | | | | | [phone] | | | +--------+ + + + [...]
--- OUTSIDE RECORDS SUMMARY | ~2020-06-28 | XMS | Encounter Summary ---
Demographics + + + | Address | [address] | | | [place] [address] | + + + | Home Phone [...] Providers + +------+ + | Care Telephone Answerer Name | Role | Phone | + [...] | | | sympathetic | [place] [address]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 | FAMILY | Mailstop | | | | | of lower | MEDICINE P | [address] | | | | | limb | [address] | [place], [place] | | | | | | [place], | [address] | | | | | | [place] [address] | Phone: | | | | | | Phone: | [phone] | | | | | | [phone] | Fax: | | | | | | Fax: | [phone] | | | | | | [phone] | | +--------+--------+ + + + + Encounter Details +--------+---------+ + + + | Date | Type | Department | Care Team | Description | +--------+---------+ + + + | 09/04/ | Office | [facility] Comprehensive | Dale Cantu, | CRPS (complex | | 2011 | Visit | Pain Center at | [address] [facility] | regional pain | | | | [facility] | [facility] [id number] | syndrome), lower | | | | [address] | [place], [place] | limb; Gait | | | | [place] for [facility] | [address] | disturbance; Sleep | | | | and Healing, | [phone] | disturbance, | | | | Building | | unspecified; | | | | Floor [place], [place] | | Adjustment reaction | | | | [address] | | | | | | [phone] | | | +--------+---------+ + + + [...] CRPS patients (Loretta Rousseau et al. Katrina Community Services Officer Med. 2010;152:152-158) . Bisphosphonate trial. Typically, I [...] and a pain drawing which I reviewed. [facility] Brief Pain Inventory: (ten= worst [...] Trial spinal cord stimulator leads 08/02/2012 [facility], Surgeon: Dale Cantu MD Family [...] The Review of Systems obtained by the [facility] was reviewed. Additional Review of Systems sean [...] of Pain: 13(1):17-21, 2008). DALE CANTU MD Resolution Expert, Comprehensive Pain Center Knobber, Pain Medicine Professor, Anesthesiology & Perioperative Medicine [...]
--- OUTSIDE RECORDS SUMMARY | ~2020-06-28 | XMS | Encounter Summary ---
Demographics + + + | Address | [address] | | | [place] [address] | + + + | Home Phone [...] Team Providers + +------+ + | Care Stripper Soft Plastic Name | Role | Phone | + [...] | | 2015 | | Center at [facility] [address] Junior Torres MD | Treatment Planning | | | | [address] [place] | | | | | | for Health and | | | | | | [facility] 2 | | | | | | [place], [place] | | | | | | [address] | | | | | | [phone] | | | +--------+ + + + [...]
--- OUTSIDE RECORDS SUMMARY | ~2020-06-28 | XMS | Encounter Summary ---
Demographics + + + | Address | [address] | | | [place] [address] | + + + | Home Phone [...] Team Providers + +------+ + | Care Biofuels Plant Operations Engineer Name | Role | Phone | [...] | 2015 | Encounter | Center at [facility] [address] | MD Melissa | | | | | [address] [facility] | | | | | | for Health and | | | | | | Healing, Building 2 | | | | | | [place], [place] | | | | | | [address] | | | | | | [phone] | | | +--------+ + + + [...]
--- OUTSIDE RECORDS SUMMARY | ~2020-06-28 | XMS | Encounter Summary ---
Demographics + + + | Address | [address] | | | [place] [address] | + + + | Home Phone [...] Providers + +------+ + | Care Brush Clearer Surveying Name | Role | Phone | + [...] [address] | | | | | [address] | [place], [place] | | | | | [place] for [facility] | [address] | | | | | and Healing, | [phone] | | | | | | | | | | | Floor [place], [place] | | | | | | [address] | | | | | | [phone] | | | +--------+ + + + [...]
--- OUTSIDE RECORDS SUMMARY | ~2020-06-28 | XMS | Encounter Summary ---
Demographics + + + | Address | [address] | | | [place] [address] | + + + | Home Phone [...] Team Providers + +------+ + | Care Supplies Packer Name | Role | Phone | [...] + + | 10/07/ | Telephone | [facility] Comprehensive | Yosef Kenney MD | Wound infection | | 2018 | | Pain Center at | [address] | (Concern for DRG | | | | [facility] | [address] [place], | trial wound | | | | [address] | [place] [address] | infection) | | | | [place] for Health | [phone] | | | | | and Healing, | | | | | | | | | | | | [place], [place] | | | | | | [address] | | | | | | [phone] | | | +--------+ + + + [...]
--- OUTSIDE RECORDS SUMMARY | ~2020-06-28 | XMS | Encounter Summary ---
Demographics + + + | Address | [address] | | | [place] [address] | + + + | Home Phone [...] Team Providers + +------+ + | Care Forest Products Gatherer Name | Role | Phone | + +------+ + | Justo Vazquez MD | PCP | | + +------+ + Encounter Details +--------+ + + + + | Date | Type | Department | Care Team | Description | +--------+ + + + + | 01/31/ | Documentati | Vascular Access at | [place], | | | 2017 | on | [facility] [address] | Maru RN [address] | | | | | [address] | [address] | | | | | [facility] | [place], [place] | | | | | [place], [place] | [address] | | | | | [address] | | | | | | [phone] | | | +--------+ + + + [...]
--- OUTSIDE RECORDS SUMMARY | ~2020-06-28 | XMS | Encounter Summary ---
Demographics + + + | Address | [address] | | | [place] [address] | + + + | Home Phone [...] Providers + +------+ + | Care Retail Support Associate Name | Role | Phone | + +------+ + | Justo Vazquez MD | PCP | | + +------+ + Encounter Details +--------+ + + + + | Date | Type | Department | Care Team | Description | +--------+ + + + + | 03/11/ | Telephone | [facility] | Zeeshan Mahoney MD | | | 2019 | | Pain Center at | [address] | | | | | [facility] | [address] [facility], | | | | | [address] | [place] [address] | | | | | [place] for [facility] | [phone] | | | | | and Healing, | | | | | | | | | | | | [place], [place] | | | | | | [address] | | | | | | [phone] | | | +--------+ + + + [...]
--- OUTSIDE RECORDS SUMMARY | ~2020-06-28 | XMS | Encounter Summary ---
Demographics + + + | Address | [address] | | | [place] [address] | + + + | Home Phone [...] Team Providers + +------+ + | Care Recordist Name | Role | Phone | + [...] | [facility] Comprehensive | Aleta Rebollar MD [address] | [place] | | 2018 | | Pain Center at | [address] | | | | | [facility] | [place], [place] | | | | | [address] | [address] | | | | | [place] for Health | [phone] | | | | | and Healing, | | | | | | Building | | | | | | [place], [place] | | | | | | [address] | | | | | | [phone] | | | +--------+ + + + [...]
--- OUTSIDE RECORDS SUMMARY | ~2020-06-28 | XMS | Encounter Summary ---
Demographics + + + | Address | [address] | | | [place] [address] | + + + | Home Phone [...] Providers + +------+ + | Care Table Maker Name | Role | Phone | [...] | | | | left lower | [facility], [place] | [place] | | | | | extremity | [address] | [address] | | | | | Procedures | Phone: | Phone: | | | | | REQUEST TO | [phone] | [phone] | | | | | SURGERY | Fax: | Fax: | | | | | VICE PRESIDENT SALES | [phone] | [phone] | +--------+---------+ + + + + Reason [...] | | | | | Procedures | [place], [place] | [place], | | | | | CONSULT TO | [address] | [place] | | | | | PAIN | | [address] | | | | | MANAGEMENT | | Phone: | | | | | | | [phone] | | | | | | | Fax: | | | | | | | [phone] | +--------+--------+ + + + + Encounter Details +--------+---------+ + + + | Date | Type | Department | Care Team | Description | +--------+---------+ + + + | 10/09/ | Office | [facility] | Alex Sanchez, | Complex regional | | 2018 | Visit | Pain Center at | ,PhD [address] [facility] | pain syndrome type 1 | | | | [facility] | [address] | of left lower | | | | [address] | [place], [place] | extremity (Primary | | | | [place] for [facility] | [address] | Dx) | | | | and Healing, | [phone] | | | | | | | | | | | Floor [place], [place] | | | | | | [address] | | | | | | [phone] | | | +--------+---------+ + + + [...] an external order to see a senior it specialist today. Please p resent this referral [...] insurance. PRE-PROCEDURE INSTRUCTIONS 1. Please bring a driver supervisor with you as we may give you [...] 2 weeks before your procedure, please contact [facility] to cl arify your instructions. The phone number for questions or concerns is [phone]. documented in this encounter Progress Notes Alex [...] notes. Alex Sanchez MD,PhD [facility] signed by Alex Sanchez MD,PhD at 09/15 [...] Person MD - 10/09/2018 10:00 AM PST [facility] Return Visit Date: 10/09/2018 Chief Complaint Patient presents with Back pain Low back pain Pain in left leg Knee pain Ankle pain Foot pain History of Present Illness: Tracie Farah is a 28 year old female, whose last appoi ntment at the [facility] [place] was September 28, 2018, for a clinic visit with uYn Frey NP. At that time our plans were: Recommendations/Plan: 1. Recommend to keep her appointment with Dr. Sanchez on 10/02/2018. 2. To contact the [facility]'s rep if she has any further question [...] She went into the emergency room in [place], [place] where they rem cady the leads. She [...] which she suspects also used dissolvable stitches. 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 Has been working at [employer], can' t work on [employer]. Has roommates. Allergies Allergen Reactions Morphine [...] the vein (IV) every eight hour s. [id number] COMPOUNDED MED RX CONTROLLED (SEE ADMIN INSTRUCT [...] by physician. Concentration is 150mg/mL. Compounded by [employer] ) KETOROLAC IM Inject into the muscle [...] (IV) every twel ve hours as needed. 8451-7158-99 ONDANSETRON 4 MG DISINTEGRATING TABLET Dissolve 1 tablet in mouth every twelve hours as nee ded. PANTOPRAZOLE 40 MG TABLET,DELAYED RELEASE Take 40 mg by mouth once daily. PEG 3350-ELECTROLYTES 236 GRAM-22.74 GRAM-6.74 GRAM-5.86 GRAM SOLUTION Take as directed by [facility]- 2 gallon bowel prep [...] and summary of old medical records (source: [employer]), as summarized in the body of the [...] Key. Arben Valerio MD PAIN CENTER AT [facility] 15TH FLOOR [address] [facility] Mail Code: Ch15p [place] [address] [phone] signed by Alex Sanchez MD,PhD at 10/10/2018 9:27 AM [facility] umented in this encounter Plan of Treatment Not on filedocumented as of this encounter Visit Diagnoses + + | Diagnosis | + + | Complex regional pain syndrome type 1 of left lower extremity - Primary | + + documented in this encounter
--- OUTSIDE RECORDS SUMMARY | ~2020-06-28 | XMS | Encounter Summary ---
Demographics + + + | Address | [address] | | | [place] [address] | + + + | Home Phone [...] Team Providers + +------+ + | Care Rental Sales Representative Name | Role | Phone [...] | | | | | syndrome | [facility] | [facility] | | | | | type 1 of | Rd | Rd [place], | | | | | left lower | [facility] [place] | [place] | | | | | extremity | [address] | [address] | | | | | Procedures | Phone: | Phone: | | | | | REQUEST TO | [phone] | [phone] | | | | | SURGERY | Fax: | Fax: | | | | | AIRPORT OPERATIONS OFFICER | [phone] | [phone] | +--------+---------+ + + + + Physical [...] | | regional | ,PhD [address] | OTPTRehab | | | | | pain | [address] [facility] | [address] | | | | | syndrome | [facility] | [place] | | | | | type 1 of | Rd | [place] | | | | | left lower | [place], [place] | [address] | | | | | extremity | [address] | Phone: | | | | | Procedures | Phone: | [phone] | | | | | PHYSICAL | [phone] | Fax: | | | | | THERAPY | Fax: | [phone] | | | | | REFERRAL | [phone] | | +--------+--------+ + + + + [...] | | | | pain, | [address] | ,PhD [address] | | | | | unspecified | [address] | [address] | | | | | location | Rd | [address] | | | | | Procedures | [place], [place] | Rd [place], | | | | | CONSULT TO | [address] | [place] | | | | | PAIN | | [address] | | | | | MANAGEMENT | | Phone: | | | | | | | [phone] | | | | | | | Fax: | | | | | | | [phone] | +--------+--------+ + + + + Encounter Details +--------+---------+ + + + | Date | Type | Department | Care Team | Description | +--------+---------+ + + + | 06/12/ | Office | [facility] Comprehensive | Alex Sanchez, | Complex regional | | 2018 | Visit | Pain Center at | ,PhD [address] [facility] | pain syndrome type 1 | | | | [facility] | [facility] [address] | of left lower | | | | [address] | [place], [place] | extremity (Primary | | | | Center for Health | [address] | Dx) | | | | and Healing, | [phone] | | | | | | | | | | | Floor [place], [place] | | | | | | [address] | | | | | | [phone] | | | +--------+---------+ + + + [...] in the future, please contact me via [employer] to request an order to schedule. The procedure you discussed with your doctor is called: SCS DRG TRIAL LUMBAR [facility]. Please make sure this is scheduled with the Riprap Worker. PRE-PROCEDURE INSTRUCTIONS 1. Please bring a bulk driver with you as we may give you medications that impair your ability to drive. This is necessary even if you do not receive sedation. You may take a taxi or ri [employer] if you are accompanied by a responsible [...] weeks before your procedure, please contact [facility] to cl arify your instructions. The phone number for questions or concerns is [phone]. documented in this encounter Progress Notes Holly [...] MD,P hD - 06/12/2018 10:00 AM PDT [facility] Return Visit Date: 06/12/2018 Chief Complaint Patient presents with Pain in left leg History of Present Illness: Tracie Farah is a 28 year old female, whose last appoi ntment at the [facility] was May 08, [...] that this mildly agitated her neck pain. 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 [place] [facility], Surgeon: Janak Riojas MD Cholecystectomy [...] History Social History Narrative Single. Goes to [employer] with a light load. Has been working at [employer], can' t work on [employer]. Has roommates. Allergies Allergen Reactions Morphine Anaphylaxis [...] by physician. Concentration is 150mg/mL. Compounded by [facility] ) KETOROLAC IM Inject into the [...] and summary of old medical records (source: [employer]), as summarized in the body of the [...] to send me a mess age via [employer] to request referrals to acupuncture and massage [...] this patient as record ed by Sonia Kye. Alex Sanchez MD PhD Strategic Sourcing Manager Anesthesiology and Pain Management [facility] documented in t his encounter [...]
--- OUTSIDE RECORDS SUMMARY | ~2020-06-28 | XMS | Encounter Summary ---
Demographics + + + | Address | [address] | | | [place] [address] | + + + | Home Phone [...] Team Providers + +------+ + | Care Awake Overnight Counselor Name | Role | Phone | + +------+ + | Justo Vazquez MD | PCP | | + +------+ + Encounter Details +--------+ + + + + | Date | Type | Department | Care Team | Description | +--------+ + + + + | 12/02/ | Document-Sc | Health Information | Unknown . | | | 2017 | anned | Services [address] | | | | | | [address] | | | | | | Mailcode: [id number] | | | | | | [facility] | | | | | | [place], [place] | | | | | | [address] | | | | | | [phone] | | | +--------+ + + + [...]
--- OUTSIDE RECORDS SUMMARY | ~2020-06-28 | XMS | Encounter Summary ---
Demographics + + + | Address | [address] | | | [place] [address] | + + + | Home Phone [...] Providers + +------+ + | Care Hospital Cleaning Specialist Name | Role | Phone | [...] + + | 06/07/ | Telephone | [facility] Ilene | Ilene Bright, | Care Coordination | | 2016 | | Pain Center at | NEWS CONTENT SPECIALIST [address] | | | | | [facility] | [place], [place] | | | | | [address] | [address] | | | | | [facility] | [phone] | | | | | and Healing, | | | | | | Building , | | | | | | Floor [place], [place] | | | | | | [address] | | | | | | [phone] | | | +--------+ + + + [...]
--- OUTSIDE RECORDS SUMMARY | ~2020-06-28 | XMS | Encounter Summary ---
Demographics + + + | Address | [address] | | | [place] [address] | + + + | Home Phone [...] Team Providers + +------+ + | Care Pipeline Gang Supervisor Name | Role | Phone | [...] | | Pain | Complex | [place]ene, GLUING PRESSMAN | Catriona M, | | | | Management | regional | [address] | PSY D [address] | | | | | pain | [address] | [address] | | | | | syndrome | [place], [place] | [place], [place] | | | | | type 1 of | [address] | [address] Phone: | | | | | left lower | Phone: | [phone] | | | | | extremity | [phone] | Fax: | | | | | Intractable | Fax: | [phone] | | | | | cyclical | [phone] | | | | | | vomiting [...] | | | | | | [place] | | | | | | | PSYCHIATRIC | | | | | | | DIAGNOSTIC | | | | | | | EVAL, NO MED | | | | | | | SVCS [place] | | | | | | | PSYCH TSTNG | | | | | | | PSYCH/PHYS | | | | | | | [place] | | | | | | | PSYCHOTHERAP | | | | | | | Y, 45 MIN | | | +--------+---------+ + + + + Encounter Details +--------+---------+ + + + | Date | Type | Department | Care Team | Description | +--------+---------+ + + + | 10/11/ | Office | Pain Center at [facility] | Jamel Bravo, | 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 The patient was referred for pain [...] by physician. Concentration is 150mg/mL. Compounded by [employer] ([phone]), Disp: , Rfl: 5 lamoTRIgine 200 mg [...] oral recon soln, Take as directed by [facility]- 2 gallon bowel prep, Disp: 8000 mL, [...] e. 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 For enjoyment the patient watches TV, reads, [...] time I spent was approximately 50 minutes fpwn-id-jxdj with the patient and approxima tely 1 hour 40 minutes of dpr-edhx-rz-face testing, interpreting and synthesizing results. Jamel Bravo, PhD PAIN CENTER AT [facility] 15TH FLOOR [address] [facility] Mail Code: Ch15[place] [address] documented in this en counter [...]
--- OUTSIDE RECORDS SUMMARY | ~2020-06-28 | XMS | Encounter Summary ---
Demographics + + + | Address | [address] | | | [place] [address] | + + + | Home Phone [...] Providers + +------+ + | Care Telephone Interceptor Operator Name | Role | Phone | + +------+ + | Justo Vazquez MD | PCP | | + +------+ + Encounter Details +--------+ + + + + | Date | Type | Department | Care Team | Description | +--------+ + + + + | 01/12/ | Telephone | [facility] | Kenny Gaspar MD | | | 2016 | | [place] [address] [address] | | | | | | [address] [facility] | | | | | | for Health and | | | | | | [facility], Building 2 | | | | | | [place], [place] | | | | | | [address] | | | | | | [phone] | | | +--------+ + + + [...]
--- OUTSIDE RECORDS SUMMARY | ~2020-06-28 | XMS | Encounter Summary ---
Demographics + + + | Address | [address] | | | [place] [address] | + + + | Home Phone [...] Providers + +------+ + | Care Air Brake Tester Name | Role | Phone | [...] | | | [address] | [facility] [address] | | | | | [place], [place] | [place], [place] | | | | | [address] | [address] | | | | | | [phone] | | | | | | | [...] | + +--------+ + + + | PILE DRIVER OPERATOR HELPER MISC PROCEDURE | Routin | 12/27/2017 | Complex regional | Results for this | | | e | 3:28 PM | pain syndrome type 1 | procedure are in the | | | | PST | of left lower | results section. | | | | | extremity | | + +--------+ + + + documented in this encounter Results [facility] MISC PROCEDURE (12/27/2017 3:28 PM [...]
--- OUTSIDE RECORDS SUMMARY | ~2020-06-28 | XMS | Encounter Summary ---
Demographics + + + | Address | [address] | | | [place] [address] | + + + | Home Phone | | + + + | Preferred Language | Unknown | + + + | Marital Status | Single | + + + | Alevism Affiliation | 1073 | + + + | Race | Unknown | + + + | Ethnic Group | Unknown | + + + Author + + + | Author | [facility] | | | and [place] | + + + | Organization | [facility] | | | and [...] [place] | | | | | [address] | | + + + + + | Bryant Farah | ERICKA | Unknown | | + + + + + Care Team Providers + +------+ + | Care Busgirl Name | Role | Phone | + +------+ + PCP | Unavailable | + +------+ + Encounter Details +--------+ + + + + | Date | Type | Department | Care Team | Description | +--------+ + + + + | 08/11/ | Hospital | [facility] | | | | 1998 | Encounter | MED CTR XRAY [address] | | | | | | [address] | | | | | | [place] [address] | | | | | | [phone] | | | +--------+ + + + [...]
--- OUTSIDE RECORDS SUMMARY | ~2020-06-28 | XMS | Encounter Summary ---
Demographics + + + | Address | [address] | | | [place] [address] | + + + | Home Phone [...] Team Providers + +------+ + | Care Poll Watcher Name | Role | Phone | + +------+ + | Justo Vazquez MD | PCP | | + +------+ + Encounter Details +--------+ + + + + | Date | Type | Department | Care Team | Description | +--------+ + + + + | 12/28/ | Riveter Helper | [facility] Comprehensive | Alex Sanchez, | Arthralgia of lower | | 2018 | | Pain Center at | ,PhD [address] | leg, unspecified | | | | [facility] | [address] | laterality (Primary | | | | [address] | [place], [place] | Dx) | | | | Center for Health | [address] | | | | | and Healing, | [phone] | | | | | | | | | | | Floor [place], [place] | | | | | | [address] | | | | | | [phone] | | | +--------+ + + + [...]
--- OUTSIDE RECORDS SUMMARY | ~2020-06-28 | XMS | Encounter Summary ---
Demographics + + + | Address | [address] | | | [place] [address] | + + + | Home Phone [...] Providers + +------+ + | Care Industrial Service Technician Name | Role | Phone | [...] | pain, | [address] | [address] | | | | | unspecified | [address] | [address] | | | | | abdominal | Rd | [place], [place] | | | | | location | [facility] [place] | [address] | | | | | Pain of | [address] | Phone: | | | | | upper | | [phone] | | | | | abdomen | | Fax: | | | | | Complex | | [phone] | | | | | regional | [...] | | | | | | | COUNT ROOM CLERK | | | +--------+---------+ + + + + Reason for Visit + + + | Reason | Comments | + + + | Procedure | | + + + Encounter Details +--------+ + + + + | Date | Type | Department | Care Team | Description | +--------+ + + + + | 08/30/ | Telephone | [facility] | Ilene Bright, | Procedure | | 2017 | | Pain Center at | FACING BASTER JUMPBASTING [address] | | | | | [facility] | [place], [place] | | | | | [address] | [address] | | | | | [facility] | [phone] | | | | | and Healing, | | | | | | Building | | | | | | Floor [place], [place] | | | | | | [address] | | | | | | [phone] | | | +--------+ + + + [...]
--- OUTSIDE RECORDS SUMMARY | ~2020-06-28 | XMS | Encounter Summary ---
Demographics + + + | Address | [address] | | | [place] [address] | + + + | Home Phone [...] Team Providers + +------+ + | Care Ink Grinder Name | Role | Phone | + +------+ + | Justo Vazquez MD | PCP | | + +------+ + Encounter Details +--------+ + + + + | Date | Type | Department | Care Team | Description | +--------+ + + + + | 03/23/ | MyChart | [facility] | Ilene Bright, | Welcome | | 2017 | Encounter | Pain Center at | ANALYZER SALES [address] | | | | | [facility] | [place], [place] | | | | | [address] | [address] | | | | | [place] for [facility] | [phone] | | | | | and Healing, | | | | | | | | | | | | Floor [place], [place] | | | | | | [address] | | | | | | [phone] | | | +--------+ + + + [...]
--- OUTSIDE RECORDS SUMMARY | ~2020-06-28 | XMS | Encounter Summary ---
Demographics + + + | Address | [address] | | | [place] [address] | + + + | Home Phone [...] Team Providers + +------+ + | Care Fountain Attendant Name | Role | Phone | [...] | | | | | [address] | | | | | | [address] | | | | | | [place] C[place], | | | | | | [address] [place] [address], | | | | | | [place] [address] | | | | | | [phone] | | | +--------+ + + + [...]
--- OUTSIDE RECORDS SUMMARY | ~2020-06-28 | XMS | Encounter Summary ---
Demographics + + + | Address | [address] | | | [place] [address] | + + + | Home Phone [...] Team Providers + +------+ + | Care Escrow Agent Name | Role | Phone | + +------+ + | Justo Vazquez MD | PCP | | + +------+ + Encounter Details +--------+ + + + + | Date | Type | Department | Care Team | Description | +--------+ + + + + | 03/23/ | MyChart | [facility] | Ilene Bright, | Welcome | | 2017 | Encounter | Pain Center at | FINANCIAL PLANNER [address] | | | | | [facility] | [place], [place] | | | | | [address] | [address] | | | | | [place] for [facility] | [phone] | | | | | and Healing, | | | | | | | | | | | | Floor [place], [place] | | | | | | [address] | | | | | | [phone] | | | +--------+ + + + [...]
--- OUTSIDE RECORDS SUMMARY | ~2020-06-28 | XMS | Encounter Summary ---
Demographics + + + | Address | [address] | | | [place] [address] | + + + | Home Phone [...] Providers + +------+ + | Care Blocker And Polisher Name | Role | Phone | [...] | | | | | syndrome | [facility] | [facility] | | | | | type 1 of | Rd | Rd [place], | | | | | left lower | [facility], [place] | [place] | | | | | extremity | [address] | [address] | | | | | Muscle pain | Phone: | Phone: | | | | | Procedures | [phone] | [phone] | | | | | REQUEST TO | Fax: | Fax: | | | | | SURGERY | [phone] | [phone] | | | | | SHUTTLE VENEERING SUPERVISOR | | | +--------+---------+ + + [...] | syndrome | [address] | [address] | | | | | type 1 of | Rd | Rd [place], | | | | | left lower | [place], [place] | [place] | | | | | extremity | [address] | [address] | | | | | Muscle pain | Phone: | Phone: | | | | | Procedures | [phone] | [phone] | | | | | REQUEST TO | Fax: | Fax: | | | | | SURGERY | [phone] | [phone] | | | | | SHUTTLE VENEERING SUPERVISOR | | | | | | [...] | | | | | Procedures | [facility] [place] | [facility], | | | | | CONSULT TO | [address] | [place] | | | | | PAIN | | [address] | | | | | MANAGEMENT | | Phone: | | | | | | | [phone] | | | | | | | Fax: | | | | | | | [phone] | +--------+--------+ + + + + Encounter Details +--------+---------+ + + + | Date | Type | Department | Care Team | Description | +--------+---------+ + + + | 12/14/ | Office | [facility] | Alex Sanchez, | Complex regional | | 2018 | Visit | Pain Center at | ,PhD [address] | pain syndrome type 1 | | | | [facility] | [facility] [address] | of left lower | | | | [address] | [place], [place] | extremity (Primary | | | | [place] for [facility] | [address] | Dx); Muscle pain; | | | | and Healing, | [phone] | Pain of upper | | | | | | abdomen | | | | Floor [place], [place] | | | | | | [address] | | | | | | [phone] | | | +--------+---------+ + + + [...] in the [facility]. It was great [...] make sure this is scheduled with the Advanced Manufacturing Vice President. PRE-PROCEDURE INSTRUCTIONS 1. Please bring a heavy truck driver with you as we may give you medications that impair your ability to drive. This is necessary even if you do not receive sedation. You may take a taxi or [employer] if you are accompanied by a responsible [...] or blood thinning medications (other than aspirin), [facility] doctor who is doing your procedure will communicate with the provider who is prescribing y our anticoagulant therapy. If you do not have clear instructions on what to do with your an ticoagulant by 2 weeks before your procedure, please contact [facility] to cl arify your instructions. The phone number for questions or concerns is [phone]. documented in this encounter Progress Notes Charline [...] M D,PhD - 12/14/2017 10:25 AM PST [facility] Return Visit Date: 12/14/2017 Chief Complaint Patient presents with Back pain Low back pain Abdominal pain Pain in right leg Pain in left leg History of Present Illness: Tracie Farah is a 27 year old female, whose last appoi ntment at the [facility] [place] was October 11, 2017, for a clinic [...] review treatment plan. * Follow up with [facility] as needed. Today, she [...] was treated by Christie Madrid MD in [place], [place] for three years before she abruptly ended her practice due to illness. This left her without a doctor to help her manage her chronic pain. In addition to her CRPS symptoms (diagnosed 2010), she has some sto mach issues that she has been working with Ilene Childs DNP, RESET MERCHANDISER-C. She has a scar on her stomach [...] a lot of great improvements while in [place], [place]. Weaning her off of the narcotic [...] her medical history that she spent in [place], [place] where she part ook in a [...] Spinal cord stimulator trial - Nerve blocks MASSAGE THERAPIST Brief Pain Inventory: (ten= worst possible pain [...] Hemroidectomy Trial spinal cord stimulator leads 08/02/2012 [facility], Surgeon: Janak Riojas MD Cholecystectomy Appendectomy [...] History Social History Narrative Single. Goes to [employer] with a light load. Has been working at [employer], can' t work on [employer]. Has roommates. Allergies Allergen Reactions Morphine Anaphylaxis [...] by physician. Concentration is 150mg/mL. Compounded by [facility] ) LAMOTRIGINE 200 MG TABLET Take [...] SOLUTION Take as directed by [facility] Digestive [facility] [...] and summary of old medical records (source: [employer]), as summarized in the body of the [...] to her by Christie Madrid MD in [place]. As she has since left the [...] peripheral nerve stimulation. As she lives in [place], [place] with her family (3.5 hours away), [...] patient as record ed by Sonia Key. Alxe Sanchez MD PhD Supervisor Drapery Hanging Anesthesiology and Pain Management [facility] Post visit: I reviewed the [...] | + + + + + | [facility] | [address] | [place] [address] | | | SERVICES, CORE | GUILLERMO [...]
--- OUTSIDE RECORDS SUMMARY | ~2020-06-28 | XMS | Encounter Summary ---
Demographics + + + | Address | [address] | | | [place] [address] | + + + | Home Phone [...] Providers + +------+ + | Care Wool Brusher Name | Role | Phone | + [...] | 2017 | | Center at [facility] [address] | | | | | | [address] [facility] | | | | | | for Health and | | | | | | Healing, Building 2 | | | | | | [place], [place] | | | | | | [address] | | | | | | [phone] | | | +--------+--------+ + + + [...]
--- OUTSIDE RECORDS SUMMARY | ~2020-06-28 | XMS | Encounter Summary ---
Demographics + + + | Address | [address] | | | [place] [address] | + + + | Home Phone [...] Team Providers + +------+ + | Care Furnace And Wash Equipment Operator Name | Role | Phone | [...] Rd | | | | | | [place], [place] | | | | | | [address] | | | +--------+ + + + [...]
--- OUTSIDE RECORDS SUMMARY | ~2020-06-28 | XMS | Encounter Summary ---
Demographics + + + | Address | [address] | | | [place] [address] | + + + | Home Phone [...] Team Providers + +------+ + | Care Wrapper Selector Name | Role | Phone | + +------+ + | Justo Vazquez MD | PCP | | + +------+ + Encounter Details +--------+ + + + + | Date | Type | Department | Care Team | Description | +--------+ + + + + | 12/07/ | Telephone | [facility] | Alex Sanchez, | | | 2019 | | Pain Center at | ,PhD [address] | | | | | [facility] | [address] | | | | | [address] | [place], [place] | | | | | [place] for [facility] | [address] | | | | | and Healing, | [phone] | | | | | | | | | | | Floor [place], [place] | | | | | | [address] | | | | | | [phone] | | | +--------+ + + + [...]
--- OUTSIDE RECORDS SUMMARY | ~2020-06-28 | XMS | Encounter Summary ---
Demographics + + + | Address | [address] | | | [place] [address] | + + + | Home Phone [...] Providers + +------+ + | Care Candy Polisher Name | Role | Phone | + +------+ + | Justo Vazquez MD | PCP | | + +------+ + Encounter Details +--------+ + + + + | Date | Type | Department | Care Team | Description | +--------+ + + + + | 12/05/ | Procedure | [facility] | | | | 2019 | Pass | [place] [facility] | | | | | | and Healing Surgery | | | | | | Center Admitting | | | | | | Desk Located on the | | | | | | 4th floor [address] | | | | | | [address] [place], | | | | | | [place] [address] | | | +--------+ + + + [...]
--- OUTSIDE RECORDS SUMMARY | ~2020-06-28 | XMS | Encounter Summary ---
Demographics + + + | Address | [address] | | | [place] [address] | + + + | Home Phone [...] Team Providers + +------+ + | Care Hook And Eye Sewing Machine Operator Name | Role | [...] Oliveira | | 2011 | IP | [address] | | House - Approved | | | | [place]donado [place], | | | | | | [place] [address] | | | +--------+ + + + [...]
--- OUTSIDE RECORDS SUMMARY | ~2020-06-28 | XMS | Encounter Summary ---
Demographics + + + | Address | [address] | | | [place] [address] | + + + | Home Phone [...] Providers + +------+ + | Care Business Broker Name | Role | Phone | + [...] Medication Question | | 2016 | | [place] [id number] | | | | | | [address] [facility] | | | | | | for Health and | | | | | | Healing, [facility] 2 | | | | | | [place], [place] | | | | | | [address] | | | | | | [phone] | | | +--------+ + + + [...]
--- OUTSIDE RECORDS SUMMARY | ~2020-06-28 | XMS | Encounter Summary ---
Demographics + + + | Address | [address] | | | [place] [address] | + + + | Home Phone [...] Providers + +------+ + | Care Learning Strategist Name | Role | Phone | + +------+ + | Justo Vazquez MD | PCP | | + +------+ + Encounter Details +--------+ + + + + | Date | Type | Department | Care Team | Description | +--------+ + + + + | 08/30/ | Documentati | Pain Center at [facility] | Jamel Madden G, | | | 2018 | on | [address] | PhD [address] | | | | | Center for Health | [place], [place] | | | | | and Healing, | [address] | | | | | | [phone] | | | | | Floor [place], [place] | | | | | | [address] | | | | | | [phone] | | | +--------+ + + + [...]
--- OUTSIDE RECORDS SUMMARY | ~2020-06-28 | XMS | Encounter Summary ---
Demographics + + + | Address | [address] | | | [place] [address] | + + + | Home Phone [...] Providers + +------+ + | Care Chief Compliance Officer Name | Role | Phone | + +------+ + | Justo Vazquez MD | PCP | | + +------+ + Encounter Details +--------+ + + + + | Date | Type | Department | Care Team | Description | +--------+ + + + + | 12/05/ | Pharmacy | [facility] | | | | 2019 | Visit | & [facility] | | | | | | [address] | | | | | | Mailcode: [place] | | | | | | [facility] and | | | | | | Healing, Building 1 | | | | | | [place], [place] | | | | | | [address] | | | | | | [phone] | | | +--------+ + + + [...]
--- OUTSIDE RECORDS SUMMARY | ~2020-06-28 | XMS | Encounter Summary ---
Demographics + + + | Address | [address] | | | [place] [address] | + + + | Home Phone [...] Providers + +------+ + | Care Applications Development Consultant Name | Role | Phone | + +------+ + | Justo Vazquez MD | PCP | | + +------+ + Encounter Details +--------+ + + + + | Date | Type | Department | Care Team | Description | +--------+ + + + + | 01/02/ | Telephone | [facility] | Ilene Bright, | | | 2019 | | Pain Center at | PRODUCTION ENGINEER [address] | | | | | [facility] | [place], [place] | | | | | [address] | [address] | | | | | [place] for [facility] | [phone] | | | | | and Healing, | | | | | | | | | | | | Floor [place], [place] | | | | | | [address] | | | | | | [phone] | | | +--------+ + + + [...]
--- OUTSIDE RECORDS SUMMARY | ~2020-06-28 | XMS | Encounter Summary ---
Demographics + + + | Address | [address] | | | [place] [address] | + + + | Home Phone [...] Providers + +------+ + | Care Outreach Clinician Name | Role | Phone | + [...] | MD [address] [facility] | | | | | [facility] | [facility] [address] | | | | | [address] | [place], [place] | | | | | Center for Health | [address] | | | | | and [place], | [phone] | | | | | | | | | | | Floor [place], [place] | | | | | | [address] | | | | | | [phone] | | | +--------+ + + + [...]
--- OUTSIDE RECORDS SUMMARY | ~2020-06-28 | XMS | Encounter Summary ---
Demographics + + + | Address | [address] | | | [place] [address] | + + + | Home Phone [...] Team Providers + +------+ + | Care Injection Specialist Name | Role | Phone | [...] [address] | | | | | [facility] | [facility], | | | | | [address] | [place] [address] | | | | | [facility] | [phone] | | | | | and Healing, | | | | | | Building | | | | | | [place], [place] | | | | | | [address] | | | | | | [phone] | | | +--------+ + + + [...]
--- OUTSIDE RECORDS SUMMARY | ~2020-06-28 | XMS | Encounter Summary ---
Demographics + + + | Address | [address] | | | [place] [address] | + + + | Home Phone [...] Providers + +------+ + | Care Fire And Safety Helper Name | Role | Phone | [...] | | | | | | [place], [place] | | | | | | [address] | | | +--------+ + + + [...]
--- OUTSIDE RECORDS SUMMARY | ~2020-06-28 | XMS | Encounter Summary ---
Demographics + + + | Address | [address] | | | [place] [address] | + + + | Home Phone [...] Providers + +------+ + | Care Brand Activation Manager Name | Role | Phone | + +------+ + | Justo Vazquez MD | PCP | | + +------+ + Encounter Details +--------+ + + + + | Date | Type | Department | Care Team | Description | +--------+ + + + + | 09/20/ | Telephone | [facility] | Ilene Bright, | | | 2017 | | Pain Center at | GEAR SHAVER SET UP OPERATOR [address] | | | | | [facility] | [place], [place] | | | | | [address] | [address] | | | | | [place] for [facility] | [phone] | | | | | and Healing, | | | | | | | | | | | | Floor [place], [place] | | | | | | [address] | | | | | | [phone] | | | +--------+ + + + [...]
--- OUTSIDE RECORDS SUMMARY | ~2020-06-28 | XMS | Encounter Summary ---
Demographics + + + | Address | [address] | | | [place] [address] | + + + | Home Phone [...] Providers + +------+ + | Care Metal Alloy Scientist Name | Role | Phone | + +------+ + | Allegra Chaudhary | PCP | | + +------+ + Encounter Details +--------+ + + + + | Date | Type | Department | Care Team | Description | +--------+ + + + + | 10/21/ | Telephone | [facility] | Antony Beltre, | | | 2014 | | [place] [address] [address] | [address] | | | | | [address] [place] | [place] [address] | | | | | for Health and | [phone] | | | | | [facility] 2 | | | | | | [place], [place] | | | | | | [address] | | | | | | [phone] | | | +--------+ + + + [...]
--- OUTSIDE RECORDS SUMMARY | ~2020-06-28 | XMS | Encounter Summary ---
Demographics + + + | Address | [address] | | | [place] [address] | + + + | Home Phone [...] Providers + +------+ + | Care Electric Well Logging Operator Name | Role | Phone [...] [facility] | [address] | | | | | [address] | [place], [place] | | | | | [place] for [facility] | [address] | | | | | and Healing, | [phone] | | | | | | | | | | | Floor [place], [place] | | | | | | [address] | | | | | | [phone] | | | +--------+ + + + [...]
--- OUTSIDE RECORDS SUMMARY | ~2020-06-28 | XMS | Encounter Summary ---
Demographics + + + | Address | [address] | | | [place] [address] | + + + | Home Phone [...] Team Providers + +------+ + | Care Resource Recovery Specialist Name | Role | Phone | [...] | | | | | extremity | [address] | [address] | | | | | Procedures | Phone: | Phone: | | | | | REQUEST TO | [phone] | [phone] | | | | | SURGERY | Fax: | Fax: | | | | | ANAESTHESIOLOGIST | [phone] | [phone] | +--------+---------+ + + + + Encounter Details +--------+---------+ + + + | Date | Type | Department | Care Team | Description | +--------+---------+ + + + | 12/22/ | Office | [facility] | Ilene Bright, | Complex regional | | 2019 | Visit | Pain Center at | HR ADMINISTRATIVE ASSISTANT [address] | pain syndrome type 1 | | | | [facility] | [place], [place] | of left lower | | | | [address] | [address] | extremity; S/P | | | | [place] for [facility] | [phone] | insertion of spinal | | | | and Healing, | | cord stimulator | | | | Building | | | | | | Floor [place], [place] | | | | | | [address] | | | | | | [phone] | | | +--------+---------+ + + + [...] fo r your reference. - The [place] clearance representative met with you and made adjustments to your stimulator. I spoke w ith the clearance representative and she is happy with your [...] [facility] the [facility] [place]. It was great to see you again, documented in this encounter Progress Notes Ilene Bright, HR ADMINISTRATIVE ASSISTANT - 12/22/2018 11:00 AM PSTFormatting of this note might be different fr om the original. [facility] Return Visit Date: 12/22/2018 Chief [...] order to tolerate her incision site pain. EVS MANAGER Brief Pain Inventory: (ten= worst possible [...] History Social History Narrative Single. Goes to [employer] with a light load. Has been working at [employer], can' t work on [place] [employer]. Has roommates. Allergies Allergen Reactions Morphine Anaphylaxis [...] SOLUTION Take as directed by [facility] Digestive Health- 2 gallon bowel prep POLYETHYLENE [...] nausea Abdominal pain Abdominal scar neuroma [facility] CLINICAL PROTOCOL PATIENT (CLNPRO) - Implanted Spinal [...] and summary of old medical records (source: [facility], [facility] Everywhere), as summarized in the body of [...] taking for her surgical incision. The [facility] clearance representative visited the patient in order to [...] ed by Collin Salomon. Ilene Childs DNP, HR ADMINISTRATIVE ASSISTANT-C [facility] [address] [place] [address] mith, Charline Torres MA - 12/22/2018 11:00 [...]
--- OUTSIDE RECORDS SUMMARY | ~2020-06-28 | XMS | Encounter Summary ---
Demographics + + + | Address | [address] | | | [place] [address] | + + + | Home Phone [...] Providers + +------+ + | Care Solar Installation Supervisor Name | Role | Phone | [...] + + | 12/26/ | Refill | [facility] | Alex Sanchez, | Refill Request | | 2019 | | Pain Center at | ,PhD [address] | | | | | [facility] | [address] | | | | | [address] | [place], [place] | | | | | [facility] | [address] | | | | | and [place], | [phone] | | | | | [facility] | | | | | | Floor [place], [place] | | | | | | [address] | | | | | | [phone] | | | +--------+--------+ + + + [...]
--- OUTSIDE RECORDS SUMMARY | ~2020-06-28 | XMS | Encounter Summary ---
Demographics + + + | Address | [address] | | | [place] [address] | + + + | Home Phone [...] Providers + +------+ + | Care Restorative Aide Name | Role | Phone | + +------+ + | Justo Vazquez MD | PCP | | + +------+ + Encounter Details +--------+ + + + + | Date | Type | Department | Care Team | Description | +--------+ + + + + | 12/07/ | Telephone | [facility] | Alex Sanchez, | | | 2019 | | Pain Center at | ,PhD [address] | | | | | [facility] | [address] | | | | | [address] | [place], [place] | | | | | [place] for [facility] | [address] | | | | | and Healing, | [phone] | | | | | | | | | | | Floor [place], [place] | | | | | | [address] | | | | | | [phone] | | | +--------+ + + + [...]
--- OUTSIDE RECORDS SUMMARY | ~2020-06-28 | XMS | Encounter Summary ---
Demographics + + + | Address | [address] | | | [place] [address] | + + + | Home Phone [...] Team Providers + +------+ + | Care Accounts Receivable Analyst Name | Role | Phone | [...] Oliveira | | 2011 | IP | [address] | | House - Approved | | | | [place] Maldonado [place], | | | | | | [place] [address] | | | +--------+ + + + [...]
--- OUTSIDE RECORDS SUMMARY | ~2020-06-28 | XMS | Encounter Summary ---
Demographics + + + | Address | [address] | | | [place] [address] | + + + | Home Phone [...] Providers + +------+ + | Care Supervisor Assembly Name | Role | Phone | [...] Center at [facility] [address] | MD Melissa | | | | | [address] [place] | | | | | | for Health and | | | | | | Healing, Building 2 | | | | | | [place], [place] | | | | | | [address] | | | | | | [phone] | | | +--------+ + + + [...]
--- OUTSIDE RECORDS SUMMARY | ~2020-06-28 | XMS | Encounter Summary ---
Demographics + + + | Address | [address] | | | [place] [address] | + + + | Home Phone [...] Team Providers + +------+ + | Care Games Manager Name | Role | Phone | [...] | 2017 | on | Center at [facility] [address] | [address] | | | | | [address] | [facility] [place] | | | | | for Health and | [address] | | | | | Healing, Building 2 | [phone] | | | | | [place], [place] | | | | | | [address] | | | | | | [phone] | | | +--------+ + + + [...]
--- OUTSIDE RECORDS SUMMARY | ~2020-06-28 | XMS | Encounter Summary ---
Demographics + + + | Address | [address] | | | [place] [address] | + + + | Home Phone [...] Team Providers + +------+ + | Care Coronary Clinical Specialist Name | Role | Phone | + +------+ + | Justo Vazquez MD | PCP | | + +------+ + Encounter Details +--------+ + + + + | Date | Type | Department | Care Team | Description | +--------+ + + + + | 01/02/ | Telephone | [facility] | Ilene Bright, | | | 2019 | | Pain Center at | CIRCUIT MANAGER [address] | | | | | [facility] | [place], [place] | | | | | [address] | [address] | | | | | [place] for [facility] | [phone] | | | | | and Healing, | | | | | | | | | | | | Floor [place], [place] | | | | | | [address] | | | | | | [phone] | | | +--------+ + + + [...]
--- OUTSIDE RECORDS SUMMARY | ~2020-06-28 | XMS | Encounter Summary ---
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 | | | | Therapy | CRPS | Janak Martinez MD | [address] | | | | | (complex | [address] | | | | | regional | [address] | Mailcode: | | | | | pain | Mailstop | [facility] | | | | | syndrome), | [id number] | for Health | | | | | lower limb | [place], [place] | and Healing, | | | | | Gait | [address] | Building 1 | | | | | disturbance | Phone: | [place], [place] | | | | | Muscle pain | [phone] | [address] | | | | | Procedures | Fax: | Phone: | | | | | PHYSICAL | [phone] | [phone] | | | | | THERAPY | [...] regional pain | | | | [facility] | [place] [address] | syndrome), lower | | | | [address] | [phone] | limb (Primary Dx) | | | | Center for Health | | | | | | and Healing, | | | | | | Building 1, 1st | | | | | | Floor [place], [place] | | | | | | [address] | | | | | | [phone] | | | +--------+---------+ + + + [...] might be different f rom the original. [id number] BRODY FARAH Date of : 1990 Start of care: 02/14/2012 Date of onset: 02/14/2012 Referring/Attending Practitioner: Janak Riojas MD . Primary/Referral Diagnosis/ICD-9: 355.71B CRPS (complex regional pain syndrome), lower limb Insurance: Payor: [facility] Plan: BCBS OUT OF STATE Product Type: PP O Service period from: 02/14/2012 to: 08/12/2012 Number visits used/authorized: 05/25 [facility] PHYSICAL THERAPY PROGRESS NOTE [...] any change in their status. Guillermo Sanon [facility] Outpatient Rehabilitation Services Mailcode: Ch3p [address] [facility], 1st Floor [facility] [address] documented in this encounter Plan of Treatment Not on filedocumented as of this encounter Procedures + +--------+ + + + | Procedure Name | Priori | Date/Time | Associated Diagnosis | Comments | | | ty | | | | + +--------+ + + + | [place] MANUAL THER | Routin | 06/09/2012 | CRPS (complex | | | TECH,1+REGIONS,EA 15 | e | 2:46 PM | regional pain | | | MIN | | PDT | syndrome), lower | | | | | | limb | | + +--------+ + + + | [place] THERAPEUTIC | Routin | 06/09/2012 | CRPS [...]
--- OUTSIDE RECORDS SUMMARY | ~2020-06-28 | XMS | Encounter Summary ---
Demographics + + + | Address | [address] | | | [place] [address] | + + + | Home Phone [...] Providers + +------+ + | Care Process Analyst Name | Role | Phone | [...] Rd | | | | | | [place], [place] | | | | | | [address] | | | +--------+ + + + [...]
--- OUTSIDE RECORDS SUMMARY | ~2020-06-28 | XMS | Encounter Summary ---
Demographics + + + | Address | [address] | | | [place] [address] | + + + | Home Phone [...] Providers + +------+ + | Care Wellness Program Coordinator Name | Role | Phone | + +------+ + | Justo Vazquez MD | PCP | | + +------+ + Encounter Details +--------+------+ + + + | Date | Type | Department | Care Team | Description | +--------+------+ + + + | 04/23/ | Lab | Laboratory at [facility] | | Other chronic pain ; | | 2018 | | [address] | | Complex regional | | | | Center for [facility] | | pain syndrome type 1 | | | | and Healing, | | of left lower | | | | Building 2 | | extremity | | | | [place], [place] | | | | | | [address] | | | | | | [phone] | | | +--------+------+ + + + [...] LABORATORY | | Barbiturates >=200 ng/mL | [facility] | | Benzodiazepine >=200 [...] | KEVIN SHAH | [address] | [place] [address] | | | SERVICES, LILLIAN | GUILLERMO [...]
--- OUTSIDE RECORDS SUMMARY | ~2020-06-28 | XMS | Encounter Summary ---
Demographics + + + | Address | [address] | | | [place] [address] | + + + | Home Phone [...] Team Providers + +------+ + | Care Mounted Police Name | Role | Phone | + [...] | Procedures | [place] | Joel [facility], | | | | | CONSULT TO | [address] | [place] | | | | | PAIN | | [address] | | | | | MANAGEMENT | | Phone: | | | | | | | [phone] | | | | | | | Fax: | | | | | | | [phone] | +--------+--------+ + + + + Encounter Details +--------+---------+ + + + | Date | Type | Department | Care Team | Description | +--------+---------+ + + + | 04/23/ | Office | Pain Center at [facility] | Alex Sanchez, | Complex regional | | 2019 | Visit | [address] | ,PhD [address] [facility] | pain syndrome type 1 | | | | Center for [facility] | [address] | of left lower | | | | and Healing, | [place], [place] | extremity (Primary | | | | Building | [address] | Dx); Other chronic | | | | Floor [place], [place] | [phone] | pain ; S/P insertion | | | | [address] | | of spinal cord | | | | [phone] | | stimulator | +--------+---------+ + + [...] the time to see us in the [facility]. It was great to s ee you. Below is a summary of the discussion that we had today: - I will provide you with a prescription for oxycodone to use only for your monthly pain fl garo. - We reviewed and signed an opioid agreement today. - Please visit the lab on the 1st floor of [facility] to provide a urine sample for [...] fox in our notes. Alex Sanchez MD,PhD [facility] signed by Alex Sanchez MD,PhD at [...] Lam MD - 1:00 PM PDT [facility] Return Visit Date: 04/23/2019 Chief Complaint Patient presents with Pain in left leg from the knee downl Back pain where battery pack is located History of Present Illness: Tracie Farah is a 28 year old female, whose last appoi ntment at the [facility] was December 22, [...] leg pain due to the [facility] that [facility] in [facility]. She is looking into [...] DRG Spinal cord stimulator trial with [employer] system (09/25/2018) with 30-40% im provement of typical pain with significant improvement in mobility and function - Left popliteal/sciatic nerve injection AND abdominal scar trigger point injection ( 018) - Spinal cord stimulator trial with [employer] system by Janak Riojas MD (08/02/2012) - Left L3 lumbar sympathetic block by Janak Riojas MD (03/01/2012) Opioid Risk Tool (ORT) 04/23/2019 [facility] Brief Pain Inventory: (ten= worst [...] Trial spinal cord stimulator leads 08/02/2012 [employer], Surgeon: Janak Riojas MD Cholecystectomy Appendectomy Other [...] History Social History Narrative Single. Goes to [employer] with a light load. Has been working at [employer], can' t work on [employer]. Has roommates. Allergies Allergen Reactions Morphine Anaphylaxis [...] GRAM-5.86 GRAM SOLUTION Take as directed by [facility] Digestive Health- 2 gallon bowel prep [...] with nausea Abdominal pain Abdominal scar neuroma [facility] CLINICAL PROTOCOL PATIENT (CLNPRO) - Implanted [...] and summary of old medical records (source: [employer]), as summarized in the body of the [...] We performed DRG SCS trial with the [employer] System on 09/25/2018 which provided her with [...] ago. She has not spoken with the [employer] representatives about this. I encouraged her to [...] Key. Aleta Rebollar MD PAIN CENTER AT [facility] 15TH FLOOR [address] [facility] Mail Code: Ch15p [place] [phone] do cumented in this encounter Plan of [...] + + + + + | [facility] | [address] | [place] [address] | | | SERVICES, CORE | GUILLERMO [...]
--- OUTSIDE RECORDS SUMMARY | ~2020-06-28 | XMS | Encounter Summary ---
Demographics + + + | Address | [address] | | | [place] [address] | + + + | Home Phone [...] Team Providers + +------+ + | Care Sprinkler Inspector Name | Role | Phone | [...] + | 08/03/ | Refill | [facility] | Alex Sanchez, | Refill Request | | 2018 | | Pain Center at | ,PhD [address] [facility] | (ketamine) | | | | [facility] | [facility] | | | | | [address] | [place], [place] | | | | | [facility] | [address] | | | | | and [place]ina, | [phone] | | | | | [facility] | | | | | | Floor [place], [place] | | | | | | [address] | | | | | | [phone] | | | +--------+--------+ + + + [...]
--- OUTSIDE RECORDS SUMMARY | ~2020-06-28 | XMS | Encounter Summary ---
Demographics + + + | Address | [address] | | | [place] [address] | + + + | Home Phone [...] Providers + +------+ + | Care Animal Scientist Name | Role | Phone | + +------+ + | Justo Vazquez MD | PCP | | + +------+ + Encounter Details +--------+ + + + + | Date | Type | Department | Care Team | Description | +--------+ + + + + | 05/05/ | Documentati | [facility] | Alex Sanchez, | | | 2018 | on | Pain Center at | ,PhD [address] | | | | | [facility] | [address] | | | | | [address] | [place], [place] | | | | | [place] for [facility] | [address] | | | | | and Healing, | [phone] | | | | | | | | | | | Floor [place], [place] | | | | | | [address] | | | | | | [phone] | | | +--------+ + + + [...]
--- OUTSIDE RECORDS SUMMARY | ~2020-06-28 | XMS | Encounter Summary ---
Demographics + + + | Address | [address] | | | [place] [address] | + + + | Home Phone [...] + +------+ + | Care Applications Development Analyst Name | Role | Phone | [...] Pain | | 2016 | | Center [place] [address] [address] | | | | | | [facility] | | | | | | for Health and | | | | | | Healing, Building 2 | | | | | | [place], [place] | | | | | | [address] | | | | | | [phone] | | | +--------+ + + + [...]
--- OUTSIDE RECORDS SUMMARY | ~2020-06-28 | XMS | Encounter Summary ---
Demographics + + + | Address | [address] | | | [place] [address] | + + + | Home Phone [...] Providers + +------+ + | Care Research Nutritionist Name | Role | Phone | + [...] 2017 | | Center at [facility] [address] | | Review | | | | [facility] | | | | | | for Health and | | | | | | [facility] 2 | | | | | | [place], [place] | | | | | | [address] | | | | | | [phone] | | | +--------+ + + + [...]
--- OUTSIDE RECORDS SUMMARY | ~2020-06-28 | XMS | Encounter Summary ---
Demographics + + + | Address | [address] | | | [place] [address] | + + + | Home Phone [...] + + | 10/06/ | Telephone | [facility] | Yosef Kenney MD | Dermatitis | | 2018 | | Pain Center at | [address] | | | | | [facility] | [facility] | | | | | [address] | [place] [address] | | | | | [facility] | [phone] | | | | | and Healing, | | | | | | [facility] | | | | | | [place], [place] | | | | | | [address] | | | | | | [phone] | | | +--------+ + + + [...]
--- OUTSIDE RECORDS SUMMARY | ~2020-06-28 | XMS | Encounter Summary ---
Demographics + + + | Address | [address] | | | [place] [address] | + + + | Home Phone [...] Team Providers + +------+ + | Care Storage Administrator Name | Role | Phone | [...] | | | | regional | ,PhD [address] | | | | | | pain | [address] | | | | | | syndrome | [address] | | | | | | type 1 of | Rd | | | | | | left lower | [place], [place] | | | | | | extremity | [address] | | | | | | Procedures | Phone: | | | | | | PHYSICAL | [phone] | | | | | | THERAPY | Fax: | | | | | | REFERRAL | [phone] | | +--------+--------+ + + + + Encounter Details +--------+ + + + + | Date | Type | Department | Care Team | Description | +--------+ + + + + | 01/22/ | Telephone | [facility] | Alex Sanchez, | | | 2019 | | Pain Center at | ,PhD [address] [facility] | | | | | [facility] | [facility] | | | | | [address] | [place], [place] | | | | | [facility] | [address] | | | | | and [place]ina, | [phone] | | | | | | | | | | | Floor [place], [place] | | | | | | [address] | | | | | | [phone] | | | +--------+ + + + [...]
--- OUTSIDE RECORDS SUMMARY | ~2020-06-28 | XMS | Encounter Summary ---
Demographics + + + | Address | [address] | | | [place] [address] | + + + | Home Phone [...] Team Providers + +------+ + | Care Reactor Technician Name | Role | Phone | + +------+ + | Justo Vazquez MD | PCP | | + +------+ + Encounter Details +--------+ + + + + | Date | Type | Department | Care Team | Description | +--------+ + + + + | 06/07/ | Telephone | [facility] | Alex Sanchez, | | | 2019 | | Pain Center at | ,PhD [address] | | | | | [facility] | [address] | | | | | [address] | [place], [place] | | | | | [place] for [facility] | [address] | | | | | and Healing, | [phone] | | | | | | | | | | | Floor [place], [place] | | | | | | [address] | | | | | | [phone] | | | +--------+ + + + [...]
--- OUTSIDE RECORDS SUMMARY | ~2020-06-28 | XMS | Encounter Summary ---
Demographics + + + | Address | [address] | | | [place] [address] | + + + | Home Phone [...] Providers + +------+ + | Care Tape Duplicator Name | Role | Phone | + [...] + + | 09/15/ | Telephone | [facility] | Alex Sanchez, | Question | | 2018 | | Pain Center at | ,PhD [address] | | | | | [facility] | [address] | | | | | [address] | [place], [place] | | | | | [facility] | [address] | | | | | and Martina, | [phone] | | | | | Building | | | | | | Floor [place], [place] | | | | | | [address] | | | | | | [phone] | | | +--------+ + + + [...]
--- OUTSIDE RECORDS SUMMARY | ~2020-06-28 | XMS | Encounter Summary ---
Demographics + + + | Address | [address] | | | [place] [address] | + + + | Home Phone [...] Providers + +------+ + | Care Manager Transportation Planning Name | Role | Phone | + +------+ + | Justo Vazquez MD | PCP | | + +------+ + Encounter Details +--------+ + + + + | Date | Type | Department | Care Team | Description | +--------+ + + + + | 12/27/ | Ancillary | [facility] | Alex Sanchez, | | | 2018 | Orders | Pain Center at | ,PhD [address] | | | | | [facility] | [address] | | | | | [address] | [place], [place] | | | | | [place] for [facility] | [address] | | | | | and Healing, | [phone] | | | | | | | | | | | Floor [place], [place] | | | | | | [address] | | | | | | [phone] | | | +--------+ + + + [...]
--- OUTSIDE RECORDS SUMMARY | ~2020-06-28 | XMS | Encounter Summary ---
Demographics + + + | Address | [address] | | | [place] [address] | + + + | Home Phone [...] Providers + +------+ + | Care Cream Separator Operator Name | Role | Phone | [...] | | 2017 | | Center at [facility] [address] | | Review | | | | [facility] | | | | | | for Health and | | | | | | [facility], [facility] 2 | | | | | | [place], [place] | | | | | | [address] | | | | | | [phone] | | | +--------+ + + + [...]
--- OUTSIDE RECORDS SUMMARY | ~2020-06-28 | XMS | Encounter Summary ---
Demographics + + + | Address | [address] | | | [place] [address] | + + + | Home Phone [...] Providers + +------+ + | Care Manager Financial Systems Name | Role | Phone | + +------+ + | Justo Vazquez MD | PCP | | + +------+ + Encounter Details +--------+ + + + + | Date | Type | Department | Care Team | Description | +--------+ + + + + | 12/28/ | Telephone | [facility] | Ilene Bright, | | | 2019 | | Pain Center at | AUTOMOTIVE DETAILER [address] | | | | | [facility] | [place], [place] | | | | | [address] | [address] | | | | | [place] for [facility] | [phone] | | | | | and Healing, | | | | | | | | | | | | Floor [place], [place] | | | | | | [address] | | | | | | [phone] | | | +--------+ + + + [...]
--- OUTSIDE RECORDS SUMMARY | ~2020-06-28 | XMS | Encounter Summary ---
Demographics + + + | Address | [address] | | | [place] [address] | + + + | Home Phone [...] Team Providers + +------+ + | Care Chapter Relations Administrator Name | Role | Phone | [...] Pharmacy | | | | | | [address] | | | | | | Loop [place], [place] | | | | | | [address] | | | | | | [phone] | | | +--------+ + + + [...]
--- OUTSIDE RECORDS SUMMARY | ~2020-06-28 | XMS | Encounter Summary ---
Demographics + + + | Address | [address] | | | [place] [address] | + + + | Home Phone [...] Providers + +------+ + | Care Channel Cementer Name | Role | Phone | + +------+ + | Justo Vazquez MD | PCP | | + +------+ + Encounter Details +--------+ + + + + | Date | Type | Department | Care Team | Description | +--------+ + + + + | 12/27/ | Ancillary | [facility] | Alex Sanchez, | | | 2018 | Orders | Pain Center at | ,PhD [address] | | | | | [facility] | [address] | | | | | [address] | [place], [place] | | | | | [place] for [facility] | [address] | | | | | and Healing, | [phone] | | | | | | | | | | | Floor [place], [place] | | | | | | [address] | | | | | | [phone] | | | +--------+ + + + [...]
--- OUTSIDE RECORDS SUMMARY | ~2020-06-28 | XMS | Encounter Summary ---
Demographics + + + | Address | [address] | | | [place] [address] | + + + | Home Phone [...] Team Providers + +------+ + | Care Export Freight Manager Name | Role | Phone | + +------+ + | Justo Vazquez MD | PCP | | + +------+ + Encounter Details +--------+ + + + + | Date | Type | Department | Care Team | Description | +--------+ + + + + | 08/03/ | Telephone | [facility] | Alex Sanchez, | | | 2018 | | Pain Center at | ,PhD [address] | | | | | [facility] | [address] | | | | | [address] | [place], [place] | | | | | [place] for [facility] | [address] | | | | | and Healing, | [phone] | | | | | | | | | | | Floor [place], [place] | | | | | | [address] | | | | | | [phone] | | | +--------+ + + + [...]
--- OUTSIDE RECORDS SUMMARY | ~2020-06-28 | XMS | Clinical Summary ---
Demographics + + + | Address | [address] | | | [place] [address] | + + + | Home Phone [...] | Author | [facility] | + + + | Organization | [facility] | + + + | Address | Unknown | + + + | Phone | Unavailable | + + + Support + + +---------+ + | Name | Relationship | Address | Phone | + + +---------+ + | Patricia Colin | ECON | Unknown | | + + +---------+ + Care Team Providers + +------+ + | Care Production Service Manager Name | Role | Phone | + +------+ + | Justo Vazquez MD | PCP | | + +------+ + Source Comments KEVIN is fully live on both [facility] Ambulatory and [facility] InPatient.[facility] Allergies + + + + + [...] Noted Date | + + + | [facility] CLINICAL PROTOCOL PATIENT (PETER) - Implanted Spinal Cord | 12/14/2018 | | Stimulator | | + + + + + | Overview: Patient has an implanted meets spinal | | cord stimulator. Model#: [id number]. Contact [phone] for | | technical assistance.Contraindications:Sources of strong [...] | Right: | BARD | | | [id number] | | Port-10/05/2016Implanted: | | Chest | | | | 0 / | | 10/05/2016 by Obdulio Simpson, | | | | | | /VIKY | | (Quantity not on file) | | | | | | 204 | + +------+--------+ +--------+--------+--------+ + + | Description:Not Power | | Injectable, Progress record | | faxed from [facility] | | Hospital in [place], [place], | | [facility] RN | + + + +---+---+ +---+--------+--------+ | Slimtip DrgImplanted: Qty: 1 | | | [facility] | | 01/06/ | [id number] | | on 12/05/2018 by Daniel, | | | MEDICAL SC | | 2020 | 0-50A | | Alex Alba MD,PhD at [facility] | | | | | | /[id number] | | INPATIENT REV LOC | | | | | | 371 / | + +---+---+ +---+--------+--------+ + + | Description:Level 4 | + + + +---+---+ +---+---+--------+ | Slimtip DrgImplanted: Qty: 1 | | | [facility] JESSICA | | | [id number] | | on 12/05/2018 by Daniel, | | | MEDICAL SC | | | 0-50A | | Alex Alba MD,PhD at [facility] | | | | | | /[id number] | | INPATIENT REV LOC | | [...] / | | Alex Alba MD,PhD at [facility] | | | | | [...] | | | | | | | [address] | | + +--------+ +--------+ + +--------+ | STEAM AND POWER SUPERINTENDENT MEDICAID | STEAM AND POWER SUPERINTENDENT | [id number] | 11/14/19 | | | [...] | 1990 | [phone] | [place] [address] | | | evita | | | [...]
--- OUTSIDE RECORDS SUMMARY | ~2020-06-28 | XMS | Encounter Summary ---
Demographics + + + | Address | [address] | | | [place] [address] | + + + | Home Phone [...] Team Providers + +------+ + | Care Terminal Make Up Operator Name | Role | Phone [...] Oliveira | | 2011 | IP | [address] | | House - Approved | | | | [place]don[place], | | | | | | [place] [address] | | | +--------+ + + + [...]
--- OUTSIDE RECORDS SUMMARY | ~2020-06-28 | XMS | Encounter Summary ---
Demographics + + + | Address | [address] | | | [place] [address] | + + + | Home Phone [...] Team Providers + +------+ + | Care Passport Application Examiner Name | Role | Phone | [...] Rd | | | | | | [place], [place] | | | | | | [address] | | | +--------+ + + + [...]
--- OUTSIDE RECORDS SUMMARY | ~2020-06-28 | XMS | Encounter Summary ---
Demographics + + + | Address | [address] | | | [place] [address] | + + + | Home Phone [...] + +------+ + | Care Field Marketing Manager Name | Role | Phone | + +------+ + | Justo Vazquez MD | PCP | | + +------+ + Encounter Details +--------+ + + + + | Date | Type | Department | Care Team | Description | +--------+ + + + + | 12/07/ | Bridge Tender | [facility] | Ava Carbajal | | | 2016 | | [address] Kat[address] MD | | | | | [address] [facility] for | | | | | | Health and Healing, | | | | | | Building 2 | | | | | | [place], [place] | | | | | | [address] | | | | | | [phone] | | | +--------+ + + + [...]
--- OUTSIDE RECORDS SUMMARY | ~2020-06-28 | XMS | Encounter Summary ---
Demographics + + + | Address | [address] | | | [place] [address] | + + + | Home Phone [...] Team Providers + +------+ + | Care Ore Puncher Name | Role | Phone | [...] | | | sympathetic | [place] | [address]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 | FAMILY | Mailstop | | | | | of lower | MEDICINE P | [id number] | | | | | limb | [address] | [place], [place] | | | | | | [place], | [address] | | | | | | [place] [address] | Phone: | | | | | | Phone: | [phone] | | | | | | [phone] | Fax: | | | | | | Fax: | [phone] | | | | | | [phone] | | +--------+--------+ + + + + Encounter Details +--------+---------+ + + + | Date | Type | Department | Care Team | Description | +--------+---------+ + + + | 03/17/ | Office | [facility] | Dale Cantu, | CRPS (complex | | 2011 | Visit | Pain Center at | [address] | regional pain | | | | [address] [place] | [address] [address] | syndrome), lower | | | | [address] | [place], [place] | limb; Adjustment | | | | Curt[place] for [facility] | [address] | reaction; Muscle | | | | and Healing, | [phone] | pain; Gait | | | | [facility] | | disturbance | | | | Floor [place], [place] | | | | | | [address] | | | | | | [phone] | | | +--------+---------+ + + + [...] Pain: After Your Visit", log into your FundRazr nt at [email or web address]. You can enter G828 in the [facility] Library" search box. Not on C3Nanot? Review the MyChart section of your After Visit Summary for directions on liz rea to sign up. [id number] [employer]Nexus. Care instructions adapted under license by [facility]. This care instruction is for use with your licensed healthcar e professional. If you have questions about a medical condition or this instruction, always ask your healthcare professional. [employer] disclaims any warranty or liabili ty for your use of this information. Content Version: 9.2.340929; Last Revised: April 29, 2011 Nortriptyline for [...] Pain: After Your Visit", log into your FundRazr nt at [email or web address]/[email or web address]. You can enter G828 in the [facility]" search box. Not on iiko? Review the Air Semiconductorhart section of your After Visit Summary for directions on ho w to sign up. [id number] CO2Nexus. Care instructions adapted under license by [facility] [place] [facility]. This care instruction is for use with your licensed healthcar e professional. If you have questions about a medical condition or this instruction, always ask your healthcare professional. [employer] disclaims any warranty or liabili ty for your use of this information. Content Version: 9.2.965878; Last Revised: April 29, 2011 documented in [...] documented in our notes. DALE CANTU MD Top Waddy, [facility] Drop Pit Worker, Pain Medicine Professor, Anesthesiology & Perioperative Medicine NAMollMarquis manriquez MD - 03/17/2012 3:42 PM PDT [facility] Return Visit with [...] her pain. She continues to take 6-8 Huntington per day and 600 mg of ibuprofen [...] and a pain drawing which I reviewed. [facility] Brief Pain Inventory: (ten= worst [...] Muscle pain 781.2Q Gait disturbance Ms. Tracie Farha is a 21 yo female who was [...] you require any medication refills today? no NURSE'S AIDES TEACHER ROS: 1. Bones, Joints, and Muscles: [...]
--- OUTSIDE RECORDS SUMMARY | ~2020-06-28 | XMS | Encounter Summary ---
Demographics + + + | Address | [address] | | | [place] [address] | + + + | Home Phone [...] Team Providers + +------+ + | Care Wooden Barrel Mechanic Name | Role | Phone | [...] | Diagnoses | [place] | Edu Pt Air Brake Operator | | | | Therapy | CRPS | Janak Martinez MD | [address] | | | | | (complex | [address] | | | | | regional | [address] | Mailcode: | | | | | pain | Mailstop | [facility] | | | | | syndrome), | [id number] | for Health | | | | | lower limb | [place], [place] | and Healing, | | | | | Gait | [address] | Building [address] | | | | | disturbance | Phone: | [place], [place] | | | | | Muscle pain | [phone] | [address] | | | | | Procedures | Fax: | Phone: | | | | | PHYSICAL | [phone] | [phone] | | | | | THERAPY | [...] | | | | [address] | [place] [address] | syndrome), lower | | | | [address] | [phone] | limb (Primary Dx) | | | | [facility] | | | | | | and Healing, | | | | | | Building 1, | | | | | | Floor [place], [place] | | | | | | [address] | | | | | | [phone] | | | +--------+---------+ + + + [...] might be different f rom the original. [id number] BRODY [place]AH Date of : 1990 Start of care: 02/14/2012 Date of onset: 02/14/2012 Referring/Attending Practitioner: Janak Riojas MD . Primary/Referral Diagnosis/ICD-9: 355.71B CRPS (complex regional pain syndrome), lower limb Insurance: Payor: [facility] Impact Engine Plan: BCBS OUT OF STATE Product Type: PP O Service period from: 02/14/2012 to: 08/12/2012 Number visits used/authorized: 04/25 [facility] PHYSICAL THERAPY PROGRESS NOTE [...] [facility] Out[facility] Services Mailcode: Ch3p 0614 [facility] [place], [address] [place] [address] documented in this encounter Plan of Treatment Not on filedocumented as of this encounter Procedures + +--------+ + + + | Procedure Name | Priori | Date/Time | Associated Diagnosis | Comments | | | ty | | | | + +--------+ + + + | LA THERAPEUTIC | Routin | 06/13/2012 | CRPS [...]
--- OUTSIDE RECORDS SUMMARY | ~2020-06-28 | XMS | Encounter Summary ---
Demographics + + + | Address | [address] | | | [place] [address] | + + + | Home Phone [...] Team Providers + +------+ + | Care Surgery Aid Name | Role | Phone | + [...] | | | | regional | ,PhD [address] | | | | | | pain | [address] | | | | | | syndrome | [address] | | | | | | type [address] of | Rd | | | | | | left lower | [place], [place] | | | | | | extremity | [address] | | | | | | Procedures | Phone: | | | | | | CONSULT TO | [phone] | | | | | | ORTHOPEDICS | Fax: | | | | | | AND | [phone] | | | | | | REHABILITATI | | | | | | | ON | | | +--------+--------+ + + + + Encounter Details +--------+ + + + + | Date | Type | Department | Care Team | Description | +--------+ + + + + | 06/08/ | Fast Food Services Manager | [facility] | Alex Sanchez, | Complex regional | | 2019 | | Pain Center at | ,PhD [address] [facility] | pain syndrome type 1 | | | | [facility] | [address] | of left lower | | | | [address] | [place], [place] | extremity (Primary | | | | Center for Health | [address] | Dx) | | | | and Healing, | [phone] | | | | | | | | | | | Floor [place], [place] | | | | | | [address] | | | | | | [phone] | | | +--------+ + + + [...]
--- OUTSIDE RECORDS SUMMARY | ~2020-06-28 | XMS | Encounter Summary ---
Demographics + + + | Address | [address] | | | [place] [address] | + + + | Home Phone [...] Team Providers + +------+ + | Care Six Sigma Black Trainer Name | Role | Phone | [...] | 2017 | on | Center at [facility] [address] | [address] | | | | | [address] [place] | [facility] [place] | | | | | for Health and | [address] | | | | | Healing, Building 2 | [phone] | | | | | [place], [place] | | | | | | [address] | | | | | | [phone] | | | +--------+ + + + [...]
--- OUTSIDE RECORDS SUMMARY | ~2020-06-28 | XMS | Encounter Summary ---
Demographics + + + | Address | [address] | | | [place] [address] | + + + | Home Phone [...] Team Providers + +------+ + | Care Volleyball Coach Name | Role | Phone | [...] | | | | | Procedures | [place], [place] | | | | | | MR | [id number] | | | | | | ENTEROGRAPHY [...] | | | | | Procedures | [place], [place] | | | | | | MR | [id number] | | | | | | ENTEROGRAPHY [...] | 2017 | Encounter | Services at [facility] | [address] | | | | | [address] | [place], [place] | | | | | [address]iana Maldon[address] [place] | [address] | | | | | [facility] | [phone] | | | | | [place], [place] | | | | | | [address] | | | | | | [phone] | | | +--------+ + + + [...]
--- OUTSIDE RECORDS SUMMARY | ~2020-06-28 | XMS | Encounter Summary ---
Demographics + + + | Address | [address] | | | [place] [address] | + + + | Home Phone [...] Providers + +------+ + | Care Printing Machinist Name | Role | Phone | + +------+ + | Justo Vazquez MD | PCP | | + +------+ + Encounter Details +--------+ + + + + | Date | Type | Department | Care Team | Description | +--------+ + + + + | 04/23/ | Anesthesia | [facility] at [facility] | Aleta Rebollar MD [address] | | | 2019 | Event | [address] | [address] | | | | | [place] [facility] | [place], [place] | | | | | and Healing, | [address] | | | | | | [phone] | | | | | Floor [place], [place] | | | | | | [address] | | | | | | [phone] | | | +--------+ + + + [...]
--- OUTSIDE RECORDS SUMMARY | ~2020-06-28 | XMS | Encounter Summary ---
Demographics + + + | Address | [address] | | | [place] [address] | + + + | Home Phone [...] Providers + +------+ + | Care Supply Clerk Name | Role | Phone | [...] Medical Records | | 2017 | | Fertile at [facility] [address] | MD Melissa | Review | | | | [address] [facility] | | | | | | for Health and | | | | | | [facility] 2 | | | | | | [place], [place] | | | | | | [address] | | | | | | [phone] | | | +--------+ + + + [...]
--- OUTSIDE RECORDS SUMMARY | ~2020-06-28 | XMS | Encounter Summary ---
Demographics + + + | Address | [address] | | | [place] [address] | + + + | Home Phone [...] Providers + +------+ + | Care Alligator Shear Operator Name | Role | Phone | [...] 2017 | | Pain Center at | FORESTRY SUPPORT SPECIALIST [address] | | | | | [facility] | [place], [place] | | | | | [address] | [address] | | | | | [facility] | [phone] | | | | | and Healing, | | | | | | Building | | | | | | [facility] [place] | | | | | | [address] | | | | | | [phone] | | | +--------+ + + + [...]
--- OUTSIDE RECORDS SUMMARY | ~2020-06-28 | XMS | Encounter Summary ---
Demographics + + + | Address | [address] | | | [place] [address] | + + + | Home Phone [...] + +------+ + | Care Assisted Living Manager Name | Role | Phone | [...] + + | 10/30/ | Refill | [facility] | Alex Sanchez, | Refill Request | | 2018 | | Pain Center at | ,PhD [address] [facility] | | | | | [facility] | [address] | | | | | [address] | [place], [place] | | | | | [facility] | [address] | | | | | and [place]ina, | [phone] | | | | | [facility] | | | | | | Floor [place], [place] | | | | | | [address] | | | | | | [phone] | | | +--------+--------+ + + + [...]
--- OUTSIDE RECORDS SUMMARY | ~2020-06-28 | XMS | Encounter Summary ---
Demographics + + + | Address | [address] | | | [place] [address] | + + + | Home Phone [...] Providers + +------+ + | Care Surgical Instrument Repair Specialist Name | Role | Phone | + +------+ + | Justo Vazquez MD | PCP | | + +------+ + Encounter Details +--------+ + + + + | Date | Type | Department | Care Team | Description | +--------+ + + + + | 10/03/ | Telephone | [facility] | Ilene Bright, | | | 2017 | | Pain Center at | [employer]ICAL [employer] [address] | | | | | [facility] | [place], [place] | | | | | [address] | [address] | | | | | [place] for [facility] | [phone] | | | | | and Healing, | | | | | | | | | | | | Floor [place], [place] | | | | | | [address] | | | | | | [phone] | | | +--------+ + + + [...]
--- OUTSIDE RECORDS SUMMARY | ~2020-06-28 | XMS | Encounter Summary ---
Demographics + + + | Address | [address] | | | [place] [address] | + + + | Home Phone [...] Providers + +------+ + | Care Mechanical Applications Engineer Name | Role | Phone | [...] | 2016 | | Center at [facility] [address] | MD Melissa | | | | | [address] [place] | | | | | | for Health and | | | | | | Healing, Building 2 | | | | | | [place], [place] | | | | | | [address] | | | | | | [phone] | | | +--------+ + + + [...]
--- OUTSIDE RECORDS SUMMARY | ~2020-06-28 | XMS | Encounter Summary ---
Demographics + + + | Address | [address] | | | [place] [address] | + + + | Home Phone [...] Team Providers + +------+ + | Care Olap Developer Name | Role | Phone | [...] | Diagnoses | [place] | Edu Pt Pile Driver Operator | | | | Therapy | CRPS | Janak Martinez MD | [address] | | | | | (complex | [address] | | | | | regional | [address] | Mailcode: | | | | | pain | Mailstop | [facility] | | | | | syndrome), | [id number] | for Health | | | | | lower limb | [place], [place] | and Healing, | | | | | Gait | [address] | Building 1 | | | | | disturbance | Phone: | [place], [place] | | | | | Muscle pain | [phone] | [address] | | | | | Procedures | Fax: | Phone: | | | | | PHYSICAL | [phone] | [phone] | | | | | THERAPY | [...] | | | | [address] | [place] [address] | syndrome), lower | | | | [address] | [phone] | limb (Primary Dx) | | | | [facility] | | | | | | and Healing, | | | | | | Building 1, | | | | | | Floor [place], [place] | | | | | | [address] | | | | | | [phone] | | | +--------+---------+ + + + [...] might be different f rom the original. [id number] BRODY FARAH Date of : 1990 Start of care: 02/14/2012 Date of onset: 02/14/2012 Referring/Attending Practitioner: Janak Riojas MD . Primary/Referral Diagnosis/ICD-9: 355.71B CRPS (complex regional pain syndrome), lower limb Insurance: Payor: [facility] Plan: BCBS OUT OF STATE Product Type: PP O Service period from: 02/14/2012 to: 08/12/2012 Number visits used/authorized: 11/25 [facility] PHYSICAL THERAPY INITIAL EVALUATION SUBJECTIVE: Age: 21 [...] no pain relief. Admitted to the inpatient [facility] program for 1 month in [...] last two years. Concurrent medical treatment: Dr Rijoas's recommendations: Recommendations: 1. Diagnostic evaluation: Records from CRPS program at [facility]. Suggest three phase bone sca [...] employed by the psychologists here at the [facility]. 2.2 Physical therapy can reduce pain and improve functional status. Suggest Guillermo Sanon. 3. Medication suggestions: 3.1 Continue titrating up duloxetine. 3.2 As for any patient being managed with chronic opioids, we do recommend that the patient have a signed [facility] Material Risk Notice, agree to whatever [...] hemr oidectomy. Social History: lives in [place] [facility] [place], 22 years old, not working currently, in [...] concerns about therapy: she lives in [place] [facility] [facility]. She is r equesting family members or [...] provided with a token and bocanegra for [facility] site. Treatment began: 1345hrs Treatment ended: 1430hrs Manual therapy: 0min Therapeutic exercise: 15 min ASSESSMENT: pt presents with 10-year history of ankle pain post trauma and multiple surgeri es. She thinks she developed CRPS in 2004. She was diagnosed with CRPS and spent a month in the program at [facility] working through aggressive desensitization and activation which prov ided no lasting benefit. She lives in [place] [facility] [place] [facility], is going to school, and ambulates with [...] can work with her PT in [place] [place] [facility]. CLINICAL PRIORITIES: 1-follow up with Dr Riojas [...] in their status. Guillermo Sanon MSPT [facility] Outpatient Rehabilitation Services Mailcode: Ch3p [address] [facility] [facility] [address] documented in this encounter Plan of Treatment Not on filedocumented as of this encounter Procedures + +--------+ + + + | Procedure Name | Priori | Date/Time | Associated Diagnosis | Comments | | | ty | | | | + +--------+ + + + | HI THERAPEUTIC | Routin | 02/16/2012 | CRPS (complex | | | EXERCISES | e | 3:34 PM | regional pain | | | | | PDT | syndrome), lower | | | | | | limb | | + +--------+ + + + | HI PHYS THERAPY | Routin | 02/16/2012 | [...]
--- OUTSIDE RECORDS SUMMARY | ~2020-06-28 | XMS | Encounter Summary ---
Demographics + + + | Address | [address] | | | [place] [address] | + + + | Home Phone [...] Team Providers + +------+ + | Care Bumper Operator Name | Role | Phone | [...] of care) | | | | [facility] | [address] | | | | | [address] | [place], [place] | | | | | [facility] | [address] | | | | | and Healing, | [phone] | | | | | | | | | | | Floor [place], [place] | | | | | | [address] | | | | | | [phone] | | | +--------+ + + + [...]
--- OUTSIDE RECORDS SUMMARY | ~2020-06-28 | XMS | Encounter Summary ---
Demographics + + + | Address | [address] | | | [place] [address] | + + + | Home Phone [...] Team Providers + +------+ + | Care Lift Electrician Name | Role | Phone | [...] + + | 01/11/ | Telephone | [facility] | Alex Sanchez, | Referral To | | 2018 | | Pain Center at | ,PhD [address] | Orthopedics (discuss | | | | [facility] | [address] | ortho appointment) | | | | [address] | [place], [place] | | | | | [facility] | [address] | | | | | and Healing, | [phone] | | | | | Building | | | | | | Floor [facility] [place] | | | | | | [address] | | | | | | [phone] | | | +--------+ + + + [...]
--- OUTSIDE RECORDS SUMMARY | ~2020-06-28 | XMS | Encounter Summary ---
Demographics + + + | Address | [address] | | | [place] [address] | + + + | Home Phone [...] Team Providers + +------+ + | Care Company Tanker Truck Driver Name | Role | [...] | | | | | extremity | [address] | [address] | | | | | Procedures | Phone: | Phone: | | | | | REQUEST TO | [phone] | [phone] | | | | | SURGERY | Fax: | Fax: | | | | | PROPERTY CONTROLLER | [phone] | [phone] | +--------+---------+ + + + + Physical [...] | | | | regional | ,PhD 1859 | OTPTRehab | | | | | pain | [facility] | [address] | | | | | syndrome | [facility] | [place] | | | | | type 1 of | Rd | [place] | | | | | left lower | [place], [place] | [address] | | | | | extremity | [address] | Phone: | | | | | Procedures | Phone: | [phone] | | | | | PHYSICAL | [phone] | Fax: | | | | | THERAPY | Fax: | [phone] | | | | | REFERRAL | [phone] | | +--------+--------+ + + + + [...] | | | | | Procedures | [place], [place] | Rd [place], | | | | | CONSULT TO | [address] | [place] | | | | | PAIN | | [address] | | | | | MANAGEMENT | | Phone: | | | | | | | [phone] | | | | | | | Fax: | | | | | | | [phone] | +--------+--------+ + + + + Encounter Details +--------+---------+ + + + | Date | Type | Department | Care Team | Description | +--------+---------+ + + + | 06/12/ | Office | [facility] Comprehensive | Alex Sanchez, | Complex regional | | 2018 | Visit | Pain Center at | ,PhD [address] [facility] [address] | pain syndrome type 1 | | | | [facility] | [facility] [address] | of left lower | | | | [address] | [place], [place] | extremity (Primary | | | | Center for Health | [address] | Dx) | | | | and Healing, | [phone] | | | | | | | | | | | Floor [place], [place] | | | | | | [address] | | | | | | [phone] | | | +--------+---------+ + + + [...] in the future, please contact me via Vontu to request an order to schedule. The procedure you discussed with your doctor is called: SCS DRG TRIAL LUMBAR [facility]. Please make sure this is scheduled with the Dietary Service Aide. PRE-PROCEDURE INSTRUCTIONS 1. Please bring a drivers' cash clerk with you as we may give you medications that impair your ability to drive. This is necessary even if you do not receive sedation. You may take a taxi or ri [employer]car if you are accompanied by a responsible [...] 2 weeks before your procedure, please contact [facility] to cl arify your instructions. The phone number for questions or concerns is [phone]. documented in this encounter Progress Notes Holly [...] MD,P hD - 06/12/2018 10:00 AM PDT [facility] Return Visit Date: 06/12/2018 Chief Complaint Patient presents with Pain in left leg History of Present Illness: Tracie Farah is a 28 year old female, whose last appoi ntment at the [facility] was May 08, 2018, for [...] that this mildly agitated her neck pain. GAS MAIN FITTER Brief Pain Inventory: (ten= worst possible pain [...] Trial spinal cord stimulator leads 08/02/2012 [facility], Surgeon: Janak Riojas MD [...] History Social History Narrative Single. Goes to [employer] with a light load. Has been working at [employer] can' t work on [employer]. Has roommates. Allergies Allergen Reactions Morphine Anaphylaxis [...] by physician. Concentration is 150mg/mL. Compounded by [facility] ) KETOROLAC IM Inject into the [...] GRAM-5.86 GRAM SOLUTION Take as directed by [facility] Digestive Health- 2 gallon bowel [...] and summary of old medical records (source: [employer]), as summarized in the body of the [...] to send me a mess age via Vontu to request referrals to acupuncture and massage [...] by Sonia Key. Alex Sanchez MD PhD Pole Cutter Anesthesiology and Pain Management [facility] documented in [...]
--- OUTSIDE RECORDS SUMMARY | ~2020-06-28 | XMS | Encounter Summary ---
Demographics + + + | Address | [address] | | | [place] [address] | + + + | Home Phone [...] Providers + +------+ + | Care Hot Mill Shearer Name | Role | Phone | + [...] 2017 | | Center at [facility] [address] | | pain | | | | [address] [facility] | | | | | | for Health and | | | | | | Healing, [address] | | | | | | [place], [place] | | | | | | [address] | | | | | | [phone] | | | +--------+ + + + [...]
--- OUTSIDE RECORDS SUMMARY | ~2020-06-28 | XMS | Encounter Summary ---
Demographics + + + | Address | [address] | | | [place] [address] | + + + | Home Phone [...] + +------+ + | Care Medical Billing Specialist Name | Role | Phone | [...] ogy | | Ava Torres, | [address] | | | | | Constipation | [address] | [address] | | | | | , | [address] | [place] for | | | | | unspecified | [address] | Health and | | | | | constipation | [facility] [place] | Healing, | | | | | type | [address] | [address] | | | | | Procedures | | [place], [place] | | | | | CONSULT TO | | [address] | | | | | GI PROCEDURE | | Phone: | | | | | UNIT: | | [phone] | | | | | ANORECTAL | | Fax: | | | | | MANOMETRY | | [phone] | | | | | ME ANAL | | | | | | [...] | ogy | | [place], | [address] | | | | | Gastroparesi | Allegra Nieto, | [address] | | | | | s | [address] | Center for | | | | | | [address] | Health and | | | | | | [place], | Healing, | | | | | | [place] [address] | [address] | | | | | | Phone: | [place], [place] | | | | | | [phone] | [address] | | | | | | Fax: | Phone: | | | | | | [phone] | [phone] | | | | | | | Fax: | | | | | | | [phone] | +--------+--------+ + + + + Encounter Details +--------+---------+ + + + | Date | Type | Department | Care Team | Description | +--------+---------+ + + + | 08/10/ | Office | Digestive Health | Ava Carbajal | Constipation, | | 2015 | Visit | Center at [facility] [address] | MD Melissa | unspecified | | | | [facility] | | constipation type | | | | for Health and | | (Primary Dx) | | | | Healing, [address] | | | | | | [place], [place] | | | | | | [address] | | | | | | [phone] | | | +--------+---------+ + + + [...] in their attached note. Celia Lin MD Rodding Machine Tenderhost coordinator Division of Gastroenterology & Hepatology [facility] va Carbajal MD - 08/09/2016 8:40 PM PDT Gastroenterology Initial Clinic Note 08/09/2016 CHIEF COMPLAINT/IDENTIFICATION: "Gastroparesis"-Nausea emesis and abdominal pain -SECOND O GERMAINE Dr. Flores-Radha [facility] PCP: HANDY Villalpando HISTORY OF PRESENT ILLNESS [...] Flores in [facility] at [facility]. Patient has hx of GERD which [...] had CT abdomen w contrast done at [facility] on 10/23/15 showing large stool burden but [...] GI MDS: Dr. Nyla Garcia GI Dr. [facility] LABS: -increased CRP 06/19/16: Lipase-normal (8) B-HCG [...] form versus functional syndrome. Would also con specialist physician GERD as a cause for her nausea [...]
--- OUTSIDE RECORDS SUMMARY | ~2020-06-28 | XMS | Encounter Summary ---
Demographics + + + | Address | [address] | | | [place] [address] | + + + | Home Phone [...] Providers + +------+ + | Care Paper Stacker Name | Role | Phone | + [...] + + | 10/07/ | Telephone | [facility] Comprehensive | Yosef Kenney MD | Wound infection | | 2018 | | Pain Center at | [address] | (Concern for DRG | | | | [facility] | [address] [place], | trial wound | | | | [address] | [place] [address] | infection) | | | | [place] [facility] | [phone] | | | | | and Healing, | | | | | | | | | | | | [place], [place] | | | | | | [address] | | | | | | [phone] | | | +--------+ + + + [...]
--- OUTSIDE RECORDS SUMMARY | ~2020-06-28 | XMS | Encounter Summary ---
Demographics + + + | Address | [address] | | | [place] [address] | + + + | Home Phone [...] Team Providers + +------+ + | Care Grinding Machine Operator Portable Name | Role | Phone | + +------+ + | Justo Vazquez MD | PCP | | + +------+ + Encounter Details +--------+ + + + + | Date | Type | Department | Care Team | Description | +--------+ + + + + | 01/06/ | Document-Il | [facility] | Alex Sanchez, | | | 2018 | annemily | Pain Center at | ,PhD [address] | | | | | [facility] | [facility] [address] | | | | | [address] | [place], [place] | | | | | Angie for [facility] | [address] | | | | | and Healing, | [phone] | | | | | | | | | | | Floor [place], [place] | | | | | | [address] | | | | | | [phone] | | | +--------+ + + + [...]
--- OUTSIDE RECORDS SUMMARY | ~2020-06-28 | XMS | Encounter Summary ---
Demographics + + + | Address | [address] | | | [place] [address] | + + + | Home Phone [...] Team Providers + +------+ + | Care Snowboard Designer Name | Role | Phone | [...] | | | | | extremity | [address] | [address] | | | | | Muscle pain | Phone: | Phone: | | | | | Procedures | [phone] | [phone] | | | | | REQUEST TO | Fax: | Fax: | | | | | SURGERY | [phone] | [phone] | | | | | INVESTIGATIVE ANALYST | | | | | | | WI INJ,ANES | | | | | | | AGENT,SCIATI | | | | | | | C | | | | | | | NERVE,SINGLE | | | | | | | WI INJECT | | | | | | | NERV | | | | | | | BLCK,OTHR | | | | | | | PERIPH NERV | | | | | | | WI SONO | | | | | | | GUIDE FOR | | | | | | | NEEDLE | | | | | | | PLACEMENT | | | | | | | WI MOD | | | | | | | SEDATION | | | | | | | >=5YRS SAME | | | | | | | MD/QUAL | | | | | | | PROV; INIT | | | | | | | 15 MIN WI | | | | | | [...] 12/27/ | Procedure | Pain Center at [facility] | Alex Sanchez, | Pain in left leg; | | 2017 | | [address] | ,PhD [address] | Procedure | | | | Center for Health | [facility] | | | | | and Healing, | [place], [place] | | | | | [facility] | [address] | | | | | [place], [place] | [phone] | | | | | [address] | | | | | | [phone] | | | +--------+ + + + [...] note mi nayelit be [facility] Inst[facility] - Post Interventional Procedure Date: 12/27/2017 Name: Tracie Farah Date of : 1990 Procedure Performed: trigger point injection and popliteal/sciatic block. Procedure Provider: Alex Sanchez MD,PhD If you have any problems you believe are associated with your procedure tonight, Please call the Hospital Gas Plant Repairer, and ask for the Pain Management Consu ltant. If you have problems or questions between 9:00 am and 4:00 pm, Please call the [facility] Pain Center Nurse Triage Line, [...] paper. Please fax the pain diary to [phone] or attach a scanned image of it to a [employer] message to your doct or.. The area [...] I reviewed the documentation of the other BLUEPRINT PROCESSOR providers and concur with Dr. Linares's findings. I edited his note. Alex Sanchez MD,PhD Leather Carver Anesthesiology and Pain Management [facility] David Pennington MD - 12/27/2017 3:00 PM PSTPROVIDER OPERATIVE NOTE Date: December 27, 2017 Location: [facility] Procedure Room Tracie Farah [id number] :1990, presents to clinic for: PROCEDURE: Popliteal/sciatic [...] scar neuroma ATTENDING PHYSICIAN: Alex Sanchez MD,PhD ANALYSIS TESTER: Fellow David Linares MD ANESTHESIA: sedation Isadora [...] sedation. Ms. Farah was escorted to the [facility] Procedure R oom, where she was [...] procedure. Images were saved, and sent to [employer]. Ms. Farah [facility] the [facility] [...] by physician. Concentration is 150mg/mL. Compounded by [facility] ) LEVONORGESTREL 20 MCG/24 HR (5 [...] as directed by [facility] Digestive [facility]- 2 gallon [...] PRE-SEDATION: Date: December 27, 2017 Tracie Farah [id number] 1990 ALLERGIES: Morphine Previous reaction to Sedation/Analgesia: [...] ride here with you? yes Who?: mother RN/WASTE DISPOSAL PLANT OPERATOR History: 1. Has your pain changed [...] Date: December 27, 2017 Tracie Ocampojulita Farah [id number] 1990 See RN /WASTE DISPOSAL PLANT OPERATOR Pre-Sedation Note. IV ACCESS:Right subc PAC. BASELINE VS: See Sedation Flow Sheet. Tracie Donaldson Sofi [id number] 1990, presents to clinic for: Procedure: left [...] started. 1530 Midazolam 2mg IV given 1530 [id number] mcg IV given 1534 Midazolam 1mg IV given 1546 Midazolam 1mg IV given 1546 [id number] mcg IV given 1548 Fentanyl 100 mcg IV given bupivacaine 0.5%, 9mL given, 21mL wasted Kenalog 40mg/mL 1mL, 0 mL wasted 1555 abdominal scar trigger point completed. 1558 Fentanyl 50 mcg IV given 1601 Fentanyl 50 mcg IV given [place] placed for Popliteal Nerve Block.. Placement verified [...] + +--------+ + + + | WI INJECTION(S), | Routin | 12/27/2017 | Complex regional | | | ANESTHETIC AGENT(S) | e | 4:32 PM | pain syndrome type 1 | | | AND/OR STEROID; | | PST | of left lower | | | OTHER PERIPHERAL | | | extremity | | | NERVE OR BRANCH | | | | | + +--------+ + + + | WI ROPIVACAINE HCL | Routin | 12/27/2017 | Complex regional | | | INJ 0.5% | e | 4:32 PM | pain syndrome type 1 | | | | | PST | of left lower | | | | | | extremity | | + +--------+ + + + | WI MOD SEDATION | Routin | 12/27/2017 | Complex regional | | | >=5YRS SAME MD/QUAL | e | 4:32 PM | pain syndrome type 1 | | | PROV; INIT 15 MIN | | PST | of left lower | | | | | | extremity | | + +--------+ + + + documented in this encounter Results BLUEPRINT PROCESSOR MISC PROCEDURE (12/27/2017 3:28 PM PST) + [...]
--- OUTSIDE RECORDS SUMMARY | ~2020-06-28 | XMS | Encounter Summary ---
Demographics + + + | Address | [address] | | | [place] [address] | + + + | Home Phone [...] Oliveira | | 2011 | IP | [address] | | House - Approved | | | | [place], | | | | | | [place] [address] | | | +--------+ + + + [...]
--- OUTSIDE RECORDS SUMMARY | ~2020-06-28 | XMS | Encounter Summary ---
Demographics + + + | Address | [address] | | | [place] [address] | + + + | Home Phone [...] Providers + +------+ + | Care Manager Pharmacy Name | Role | Phone | + [...] Rd | | | | | | [place], [place] | | | | | | [address] | | | +--------+ + + + [...]
--- OUTSIDE RECORDS SUMMARY | ~2020-06-28 | XMS | Encounter Summary ---
Demographics + + + | Address | [address] | | | [place] [address] | + + + | Home Phone [...] Providers + +------+ + | Care Production Machinist Name | Role | Phone | [...] | | 2015 | | Center at [facility] [address] MD | Treatment Planning | | | | [address] | | | | | | for Health and | | | | | | [facility], [facility] 2 | | | | | | [place], [place] | | | | | | [address] | | | | | | [phone] | | | +--------+ + + + [...]
--- OUTSIDE RECORDS SUMMARY | ~2020-06-28 | XMS | Encounter Summary ---
Demographics + + + | Address | [address] | | | [place] [address] | + + + | Home Phone [...] Providers + +------+ + | Care Grade School Teacher Name | Role | Phone | [...] | Request (ketamine) | | | | [facility] | [address] | | | | | [address] | [place], [place] | | | | | [facility] | [address] | | | | | and Healing, | [phone] | | | | | | | | | | | Floor [place], [place] | | | | | | [address] | | | | | | [phone] | | | +--------+ + + + [...]
--- OUTSIDE RECORDS SUMMARY | ~2020-06-28 | XMS | Encounter Summary ---
Demographics + + + | Address | [address] | | | [place] [address] | + + + | Home Phone [...] Treatment Center | | | | | [facility] | [facility] [id number] | | | | | [address] | [place], [place] | | | | | Center for Health | [address] | | | | | and [place], | [phone] | | | | | | | | | | | Floor [place], [place] | | | | | | [address] | | | | | | [phone] | | | +--------+ + + + [...]
--- OUTSIDE RECORDS SUMMARY | ~2020-06-28 | XMS | Encounter Summary ---
Demographics + + + | Address | [address] | | | [place] [address] | + + + | Home Phone [...] Team Providers + +------+ + | Care Dock Supervisor Name | Role | Phone | [...] + + | 08/03/ | Refill | [facility] Comprehensive | Alex Sanchez, | Refill Request | | 2018 | | Pain Center at | ,PhD [address] [facility] | (ketamine) | | | | [facility] | [facility] | | | | | [address] | [place], [place] | | | | | [facility] | [address] | | | | | and [place], | [phone] | | | | | [facility] | | | | | | Floor [place], [place] | | | | | | [address] | | | | | | [phone] | | | +--------+--------+ + + + [...]
--- OUTSIDE RECORDS SUMMARY | ~2020-06-28 | XMS | Encounter Summary ---
Demographics + + + | Address | [address] | | | [place] [address] | + + + | Home Phone [...] | | | sympathetic | [place] | [address]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 | FAMILY | Mailstop | | | | | of lower | MEDICINE P | [address] | | | | | limb | [address] | [place], [place] | | | | | | [place], | [address] | | | | | | [place] [address] | Phone: | | | | | | Phone: | [phone] | | | | | | [phone] | Fax: | | | | | | Fax: | [phone] | | | | | | [phone] | | +--------+--------+ + + + + Encounter Details +--------+---------+ + + + | Date | Type | Department | Care Team | Description | +--------+---------+ + + + | 08/04/ | Office | [facility] Comprehensive | Dale Cantu, | CRPS (complex | | 2011 | Visit | Pain Center at | MD [address] [facility] | regional pain | | | | [facility] | [facility] [id number] | syndrome), lower | | | | [address] | [place], [place] | limb (Primary Dx) | | | | [facility] | [address] | | | | | and Healing, | [phone] | | | | | Building | | | | | | Floor [place], [place] | | | | | | [address] | | | | | | [phone] | | | +--------+---------+ + + + [...] evaluated the patient with Fellow Nhan Guo [facility], who conducted the initial history. I reviewed the history in det ail and edited his note. I was present for the examination and formulation portions of the encounter. I agree with the findings and the plan of care as documented in our notes. DALE CANTU MD Chain Forming Machine Operator, [facility] Door And Arrival Attendant, Pain Medicine Professor, Anesthesiology & Perioperative Medicine [...] physical activity and social withdrawal enok Gutierrez, [facility] - 08/04/2012 7:25 AM PDTFormatting of this note might be different from the origi nal. [facility] Return Visit with [...] has been treated at the [facility] for lower limb pain with the [...] and a pain drawing which I reviewed. [facility] Brief Pain Inventory: (ten= worst [...] of Systems obtained by the [facility] was reviewed. Additional Review of Systems: 1. [...] multiple programs with both [facility] programs, however it appears that it [...] bath today, OK to shower. HENOK GUO [facility] documented in this en counter Plan of Treatment Not on filedocumented as of this encounter Visit Diagnoses + + | Diagnosis | + + | CRPS (complex regional pain syndrome), lower limb - Primary Causalgia of lower limb | + + documented in this encounter
--- OUTSIDE RECORDS SUMMARY | ~2020-06-28 | XMS | Encounter Summary ---
Demographics + + + | Address | [address] | | | [place] [address] | + + + | Home Phone [...] Providers + +------+ + | Care Cable Swager Name | Role | Phone | + [...] Closed | | Orthopedics | Diagnoses | [place], | [facility] | | | | | Adjustment | Ranjeet Odom MD | [address] | | | | | disorder, | [address] | | | | | unspecified | Ave | Center for | | | | | type | [facility] [place] | Health and | | | | | Procedures | [address] | Healing, | | | | | CONSULT TO | Phone: | Building 1, | | | | | BEHAVIORAL | [phone] | 12th Floor | | | | | HEALTH/PSYCH | Fax: | [place], [place] | | | | | CHRISTINA - | [phone] | [address] | | | | | ADULT | | Phone: | | | | | | | [phone] | | | | | | | Fax: | | | | | | | [phone] | +--------+--------+ + + + + Reason [...] | | syndrome | [address] | [place], [place] | | | | | type 1 of | Rd | [address] | | | | | left lower | [place], [place] | Phone: | | | | | extremity | [address] | [phone] | | | | | Procedures | Phone: | Fax: | | | | | CONSULT TO | [phone] | [phone] | | | | | ORTHOPEDICS | Fax: | | | | | | AND | [phone] | | | | | | REHABILITATI [...] | 2018 | Visit | Faculty at [place] | [address] | (Primary Dx); Left | | | | for Health and | [place], [place] | ankle pain, | | | | Healing [address] | [address] | unspecified | | | | [facility] for | [phone] | chronicity; | | | | Health and Healing, | | Adjustment disorder, | | | | Building | | unspecified type | | | | Floor [place], [place] | | | | | | [address] | | | | | | [phone] | | | +--------+---------+ + + + [...] by physician. Concentration is 150mg/mL. Compounded by [employer] ([phone]) levonorgestrel (MIRENA) 20 mcg/24 hr Intrauterine IUD [...] oral recon soln Take as directed by [facility]- 2 gallon bowel prep polyethylene glycol [...] the pertinent parts [facility] and personally formulated the plan with the [...] become. f/u open ended Ranjeet Amanda M.D. Fish Grader Foot and Ankle Surgery Department of Orthopedics & Rehabilitation [facility] [phone] >60 mins face to face consultation was [...]
--- OUTSIDE RECORDS SUMMARY | ~2020-06-28 | XMS | Encounter Summary ---
Demographics + + + | Address | [address] | | | [place] [address] | + + + | Home Phone [...] Providers + +------+ + | Care Field Ironworker Name | Role | Phone | + +------+ + | Justo Vazquez MD | PCP | | + +------+ + Encounter Details +--------+ + + + + | Date | Type | Department | Care Team | Description | +--------+ + + + + | 03/18/ | Telephone | Digestive Health | Kenny Gaspar MD | | | 2017 | | [place] [address] [address] | | | | | | [address] [facility] | | | | | | for Health and | | | | | | [facility], Building [address] | | | | | | [place], [place] | | | | | | [address] | | | | | | [phone] | | | +--------+ + + + [...]
--- OUTSIDE RECORDS SUMMARY | ~2020-06-28 | XMS | Encounter Summary ---
Demographics + + + | Address | [address] | | | [place] [address] | + + + | Home Phone [...] + +------+ + | Care Director Of Vital Statistics Name | Role | Phone | + [...] | | | regional | [place] | [address] | | | | | pain | FAMILY | [facility] | | | | | syndrome), | MEDICINE P | [address] | | | | | lower limb | [address] | [place], [place] | | | | | Pain in | [place], | [address] | | | | | joint, lower | [place] [address] | Phone: | | | | | leg | Phone: | [phone] | | | | | Procedures | [phone] | Fax: | | | | | REQUEST TO | Fax: | [phone] | | | | | SURGERY | [phone] | | | | | | NATURAL GAS INSPECTOR | | | +--------+--------+ + + + + Encounter Details +--------+ + + + + | Date | Type | Department | Care Team | Description | +--------+ + + + + | 08/02/ | Procedure | Pain Center at [facility] | Dale Cantu, | Procedure; | | 2011 | | [address] | [address] | Injection; Procedure | | | | [facility] | [facility] [id number] | | | | | and Healing, | [place], [place] | | | | | [facility] | [address] | | | | | Floor [place], [place] | [phone] | | | | | [address] | | | | | | [phone] | | | +--------+ + + + [...] e might be different from the original. [facility] Patient Instructions - Post Spinal Cord Stimulator Trial Date: 08/02/2012 Name: Tracie Farah Date of : 1990 Procedure Performed: SCS TRIAL LUMBAR [facility] Procedure Provider: Dale Cantu [facility] Procedure Rm If you have any problems you believe are associated with your procedure tonight, Please call the Hospital Production Cloth Cutter, and ask for the Pain Management Consu ltant. If you have problems or questions between 9:00 am and 4:00 pm, Please call the [facility] Nurse Triage Line, . If you go to an Emergency Room, please bring this form with you. DISCHARGE INSTRUCTIONS Call immediately and/or go to the Emergency department if any concerns about wound healing, fever, or chills. Also call for concerns about SCS function. During [facility] open hours, call the [facility] ([phone]), after hours call the resaw carriage operator at [facility] ([phone]) and ask for t he Adult Pain Service electronic news gathering camera person. Identify yourself as a [facility] [...] the wounds, dressing, or SCS function. During SLICER MACHINE OPERATOR o pen hours, call the SLICER MACHINE OPERATOR ([phone]), after hours call the resaw carriage operator at [facility] ([phone] ) and ask for the Adult Pain Service electronic news gathering camera person. Identify yourself as my patient with a concer n about postoperative recovery. If there are concerns about the SCS programming, contact t he assistance representative from the SCS cage cashier. If the stimulation is not covering your area o f pain, your SCS should be reprogrammed. Do not take any blood thinning medications during the trial. Instructions printed and reviewed with the patient. Copy of instructions given to Ms. Nemo renee. DALE CANTU MD [facility] documented in this [...] and postoperative care instructions. DALE CANTU MD Logistics Supervisor, [facility] Digital Imaging Technician, Pain Medicine Professor, Anesthesiology & Perioperative Medicine Diana Arroyo RN - 08/02/2012 7:34 AM PDT PRE-SEDATION: Date: August 02, 2012 Tracie Farah [id number] 1990 ALLERGIES: Morphine Previous reaction to Sedation/Analgesia: MEDICATIONS: Current Outpatient Prescriptions Medication HYDROcodone-acetaminophen (NORCO) 10-325 mg Oral Tablet KETOROLAC TROMETHAMINE (TORADOL IM) levonorgestrel (MIRENA) 20 mcg/24 hr Intrauterine IUD LORazepam 1 mg Oral Tablet ondansetron (ZOFRAN) 8 mg Oral Tablet promethazine 25 mg Oral Tablet Meets NPO Guidelines. IV ACCESS: IV in Place IV Site [facility] 22 g @ 0655 BASELINE VS: See Sedation Flow Sheet. Tracie Donaldson [facility] [id number] 1990, presents to clinic for: Procedure: Spinal [...] 0732 - 0733: [place]azolam 2 [place] [address]: Fentanyl 25 mcg IV 0740 - 0741: Midazolam 2 mg IV 0742: Procedure started 0743 - 0744: Fentanyl 50 mcg IV 0753-54: Fentanyl 25 mcg IV Lead # 1 placed Lead # 2 placed 0801: Stimulation started. 0829: Pt reports stimulation to usual areas of pain. Leads secured. 0845: Pt returned to [facility] in stable condition. IV dc'd. Evelia Parsons [...] NOTE Date: August 02, 2012 Location: [facility] Procedure Room Tracie Farah [id number] :1990, presents to clinic for: PROCEDURE: Spinal Cord Stimuation Trial LEVEL/LATERALITY: midline lumbar PRE-OPERATIVE DIAGNOSIS: 355.71B CRPS (complex regional pain syndrome), lower limb 719.46 Pain in joint, lower leg 781.2Q Gait disturbance POST-OPERATIVE DIAGNOSIS: 355.71B CRPS (complex regional pain syndrome), lower limb 719.46 Pain in joint, lower leg 781.2Q Gait disturbance ATTENDING PHYSICIAN: Dale Cantu MD ENVIRONMENTAL LABORATORY TECHNICIAN: Fellow Bear Yost DO ANESTHESIA: sedation delivered [...] Ms. Farah was escorted to the [facility] Procedure Ro om, where she was positioned Prone on the examination table. TEAM PAUSE: The physician-led pause was conducted, and is documented in the Nursing note. Monitors were placed, including ECG, NIBP and SpO2. The skin was prepared with Chloroprep and sterile drapes were applied. [employer] Xotics system was used for this procedure. The company assistance representative was theresa knutson for the procedure. [...] pain. Ms. Farah was transported to the [facility] post-procedure recovery area where she made an uneventful recovery. Images were saved, and sent to [facility]. Ms. Farah will have her next appointment [...] wound healing or SCS function. During [facility] open hours, call the [facility] ([phone]), after h ours call the resaw carriage operator at [facility] ([phone]) and ask for the Adult Pain Service electronic news gathering camera person. Identify yourself as my patient with a [...] + +--------+ + + + | [place] PERCUT IMPLNT | Routin | 08/03/2012 | [...]
--- OUTSIDE RECORDS SUMMARY | ~2020-06-28 | XMS | Encounter Summary ---
Demographics + + + | Address | [address] | | | [place] [address] | + + + | Home Phone [...] Team Providers + +------+ + | Care Bitumen Plant Operator Name | Role | Phone [...] | Diagnoses | Beulah | Edu Pt Deal Architect | | | | Therapy | CRPS | Janak Martinez MD | [address] | | | | | (complex | [address] | | | | | regional | [address] | Mailcode: | | | | | pain | [facility] | [facility] | | | | | syndrome), | [id number] | for Health | | | | | lower limb | [place], [place] | and Healing, | | | | | Gait | [address] | [address] | | | | | disturbance | Phone: | [place], [place] | | | | | Muscle pain | [phone] | [address] | | | | | Procedures | Fax: | Phone: | | | | | PHYSICAL | [phone] | [phone] | | | | | THERAPY | [...] | | | | [address] | [place] [address] | syndrome), lower | | | | [address] | [phone] | limb (Primary Dx) | | | | [facility] | | | | | | and Healing, | | | | | | Building [address], | | | | | | Floor [place], [place] | | | | | | [address] | | | | | | [phone] | | | +--------+---------+ + + + [...] might be different f rom the original. [id number] BRODY FARAH Date of : 1990 Start of care: 02/14/2012 Date of onset: 02/14/2012 Referring/Attending Practitioner: Janak Riojas MD . Primary/Referral Diagnosis/ICD-9: 355.71B CRPS (complex regional pain syndrome), lower limb Insurance: Payor: [facility] Plan: BCBS OUT OF STATE Product Type: PP O Service period from: 02/14/2012 to: 08/12/2012 Number visits used/authorized: 01/23 [facility] PHYSICAL THERAPY PROGRESS NOTE SUBJECTIVE: Age: 21 y.o. Sex: female Chief complaint: No chief complaint on file. Current: pt has been doing her neck exercises. She is not shaking as much. Her foot hurts t bruno. Now she is working at [employer] 2-3 hours per week, and spends a [...] change in their status. Guillermo Sanon MSPT [facility] Outpatient Rehabilitation Services Mailcode: Ch3d [address] [facility], [address] [place] [phone] documented in this encounter Plan of Treatment Not on filedocumented as of this encounter Procedures + +--------+ + + + | Procedure Name | Priori | Date/Time | Associated Diagnosis | Comments | | | ty | | | | + +--------+ + + + | [place] THERAPEUTIC | Routin | 05/11/2012 | CRPS [...]
--- OUTSIDE RECORDS SUMMARY | ~2020-06-28 | XMS | Encounter Summary ---
Demographics + + + | Address | [address] | | | [place] [address] | + + + | Home Phone [...] Providers + +------+ + | Care Internet Sales Consultant Name | Role | Phone [...] | | 2017 | anned | Services [id number] | | | | | | [address] | | | | | | Mailcode: OP17A | | | | | | [facility] | | | | | | [place], [place] | | | | | | [address] | | | | | | [phone] | | | +--------+ + + + [...]
--- OUTSIDE RECORDS SUMMARY | ~2020-06-28 | XMS | Encounter Summary ---
Demographics + + + | Address | [address] | | | [place] [address] | + + + | Home Phone [...] Providers + +------+ + | Care Wrapper Layer Name | Role | Phone | + +------+ + | Justo Vazquez MD | PCP | | + +------+ + Encounter Details +--------+ + + + + | Date | Type | Department | Care Team | Description | +--------+ + + + + | 04/03/ | Telephone | [facility] | Alex Sanchez, | | | 2019 | | Pain Center at | ,PhD [address] | | | | | [facility] | [address] | | | | | [address] | [place], [place] | | | | | [facility] for [facility] | [address] | | | | | and Healing, | [phone] | | | | | | | | | | | Floor [place], [place] | | | | | | [address] | | | | | | [phone] | | | +--------+ + + + [...]
--- OUTSIDE RECORDS SUMMARY | ~2020-06-28 | XMS | Encounter Summary ---
Demographics + + + | Address | [address] | | | [place] [address] | + + + | Home Phone [...] Providers + +------+ + | Care Fruit Dumper Name | Role | Phone | [...] | | | | | Constipation | [address] | [address] | | | | | , | [address] | [place] for | | | | | unspecified | [address] | Health and | | | | | constipation | [place], [place] | Healing, | | | | | type | [address] | [address] | | | | | Abdominal | | [place], [place] | | | | | pain, | | [address] | | | | | unspecified | | Phone: | | | | | location | | [phone] | | | | | Procedures | | Fax: | | | | | CONSULT TO | | [phone] | | | | | GI PROCEDURE [...] | | 2015 | | Center at [facility] [address] | MD Melissa | Vomiting (Bile) | | | | [address] | | | | | | for Health and | | | | | | Healing, [address] | | | | | | [place], [place] | | | | | | [address] | | | | | | [phone] | | | +--------+ + + + [...]
--- OUTSIDE RECORDS SUMMARY | ~2020-06-28 | XMS | Encounter Summary ---
Demographics + + + | Address | [address] | | | [place] [address] | + + + | Home Phone [...] Team Providers + +------+ + | Care Clothes Model Name | Role | Phone | + [...] + + | 12/05/ | Surgery | [facility] | Alex Sanchez, | BILATERAL DORSAL | | 2019 | | Center for [facility] | ,PhD [address] [facility] | ROOT GANGLION SPINAL | | | | and Healing Surgery | [address] | CORD STIMULATOR | | | | Center Admitting | [place], [place] | IMPLANT LUMBAR; | | | | Desk Located on the | [address] | POSTERIOR | | | | 4th floor [address] | [phone] | | | | | [address] [place], | | | | | | [place] [address] | | | +--------+---------+ + + + [...] s/p successful DRG trial lead system with [employer] System on 09/25/2018. No changes in H&P, [...] OPERATIVE NOTE Date: December 05, 2018 Location: [facility] [place] | | | Tracie Farah [id number] :1990, presents to clinic | | | for: Dorsal root ganglion stimulator implant PROCEDURE: Dorsal | | | root ganglion stimulator implant PRE-OPERATIVE DIAGNOSIS: Complex | | | regional Pain syndrome type 1 of left lower extremity | | | POST-OPERATIVE DIAGNOSIS: Complex regional Pain syndrome type 1 of | | | left lower extremity ATTENDING PHYSICIAN: Alex Sanchez | | | MEAT PUMPER: Arben Valerio MD ANESTHESIA: sedation by IVIS Cole | | | Carmen, supervised by mangle press catcher Ilir Valdes. | | | FINDINGS: Appropriate [...] sedation. Ms. Farah was escorted to the [facility] | | | [place], where she [...] to the | | | [facility] member services representative. A test stimulation was performed [...] recovery. Images were saved, and sent to [employer]. | | | Alex Sanchez (attending) was present for the entire procedure. | | | Arben Valerio MD I was present for the entire procedure | | | (spinal cord stimulator implantation with DRG leads at left L4 and | | | L5) and all bocanegra elements of this visit. I reviewed the | | | documentation of the other SUPERVISOR WOOD CREW providers and concur with | | | Iman's findings. I edited his note. Alex Sanchez, | | | ,PhD [facility] | | | [facility] | | + [...] + | JOSE ANTONIO MIN | [address] [facility] | [place] [address] | | | OF CARE TESTS | [...]
--- OUTSIDE RECORDS SUMMARY | ~2020-06-28 | XMS | Encounter Summary ---
Demographics + + + | Address | [address] | | | [place] [address] | + + + | Home Phone [...] Providers + +------+ + | Care Company Laborer Name | Role | Phone | [...] | | | | unspecified | [facility] | [address] | | | | | location | Rd | [facility] | | | | | Procedures | [place], [place] | Rd [place], | | | | | CONSULT TO | [address] | [place] | | | | | PAIN | | [address] | | | | | MANAGEMENT | | Phone: | | | | | | | [phone] | | | | | | | Fax: | | | | | | | [phone] | +--------+--------+ + + + + Encounter Details +--------+---------+ + + + | Date | Type | Department | Care Team | Description | +--------+---------+ + + + | 05/08/ | Office | [facility] Comprehensive | Alex Sanchez, | Complex regional | | 2018 | Visit | Pain Center at | ,PhD [address] | pain syndrome type 1 | | | | [address] | [facility] [address] | of left lower | | | | [address] | [place], [place] | extremity (Primary | | | | Center for Health | [address] | Dx); Pain of upper | | | | and Healing, | [phone] | abdomen; Intractable | | | | | | cyclical vomiting | | | | Floor [place], [place] | | with nausea; | | | | [address] | | Disturbance in sleep | | | | [phone] | | behavior; Abdominal | | | [...] MD,P hD - 05/08/2018 10:30 AM PDT [facility] Comprehensive Pain Center Return Visit Date: 05/08/2018 Chief Complaint Patient presents with Ankle pain Left Foot pain Left History of Present Illness: Tracie Farah is a 27 year old female, whose last appoi ntment at the [facility] was April 19, 2018, [...] time that 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 Goes to [employer] college with a light load. Has been working at [employer], can' t work on [employer]. Has roommates. Allergies Allergen Reactions Morphine Anaphylaxis [...] by physician. Concentration is 150mg/mL. Compounded by [employer] ) KETOROLAC IM Inject into the muscle [...] and summary of old medical records (source: [employer]), as summarized in the body of [...] by Sonia Key. Alex Sanchez MD PhD Earth Science Technician Anesthesiology and Pain Management [facility] documented in this encounter Plan [...]
--- OUTSIDE RECORDS SUMMARY | ~2020-06-28 | XMS | Encounter Summary ---
Demographics + + + | Address | [address] | | | [place] [address] | + + + | Home [...] + + + | Author | [facility] | | | and [place] | + + + | Organization | [facility] | [...] [place] | | | | | [address] | | + + + + + | Bryant Farah | ECON | Unknown | | + + + + + Care Team Providers + +------+ + | Care Gear Keeper Name | Role | Phone | + +------+ + PCP | Unavailable | + +------+ + Encounter Details +--------+ + + + + | Date | Type | Department | Care Team | Description | +--------+ + + + + | 06/22/ | Emergency | [facility] | Chung Portillo | Nondiabetic | | 2016 | | [facility]ICAL CENTER | DO [address] | gastroparesis | | | | EMERGENCY CENTER | [address] | | | | | [address] | [place], [place] | | | | | [place], [place] | [address] | | | | | [address] | [phone] | | | | | [phone] | | | +--------+ + + + [...] 06/23/161053 Date of Service: 06/23/161053 Status: Signed Hand Meat Salter: Devante Guerrero MD (Physician) Procedures Additional Documentation Procedures Pharmacy called to clarify viscous lidocaine order - there was no frequency specified. I a dvised Q 4 hours PRN. Devante Guerrero MD 06/23/161053 John Mcgee PA-C - 06/22/2016 7:25 PM PDT ED Provider Notes by John Leonard PA-C at 06/22/161924 Author: John Leonard PA-C Service: Emergency Department Author Type: Physician Attendant Campground - Certified Filed: 06/22/162104 Date of Service: 06/22/161924 Status: Signed Hand Meat Salter: John Leonard PA-C (Physician Attendant Campground - Certified) Cosigner: Chung Portillo DO at 06/22/16 2312 Procedures [facility] EMERGENCY DEPARTMENT History of Present Illness [...] and treatment with Reglan at [facility] and has come to [facility] for, further evaluation and relief. Patient relates that she does not have a survey research associate follow-up or provider. Past Medical History Diagnosis [...] TRIAL; Surgeon: Ulices Hayes MD; Locati on: [facility]; Service: Pain Management; Laterality: N/A; 10:30 [...] is afebrile and nontoxic-appearing at this ti de. Records Reviewed Nursing notes. Labs & Radiology Results Laboratory Evaluation Results Procedure Component Value Ref Range Date/Time Lactic acid [[id number]] Collected: 06/22/161850 Order Status: Completed Specimen Information: Blood Updated: 06/22/162010 LACTIC ACID 1.2 0.4 - 2.0 mmol/L Magnesium [[id number]] Collected: 06/22/161850 Order Status: Completed Specimen Information: Blood Updated: 06/22/162008 MAGNESIUM 2.1 1.7 - 2.4 mg/dL Phosphorus [[id number]] Collected: 06/22/161850 Order Status: Completed Specimen Information: Blood Updated: 06/22/162008 PHOSPHORUS 3.6 2.3 - 4.8 mg/dL Lipase [[id number]] Collected: 06/22/161850 Order Status: Completed Specimen Information: Blood Updated: 06/22/161926 LIPASE 103 73 - 393 U/L Comprehensive metabolic panel [[id number]] (Abnormal) Collected: 06/22/161850 Order Status: Completed Specimen [...] 65 U/L EGFR >60 >60 mL/min/1.73m2 Amylase [[id number]] Collected: 06/22/161850 Order Status: Completed Specimen Information: Blood Updated: 06/22/161926 AMYLASE 39 25 - 115 U/L C-reactive protein [[id number]] Collected: 06/22/161850 Order Status: Completed Specimen Information: Blood Updated: 06/22/161926 CRP <0.3 <0.5 mg/dL CBC with differential [[id number]] Collected: 06/22/161850 Order Status: Completed Specimen Information: [...] K/uL Urinalysis (reflex to micro/reflex to culture) [[id number]] Collected: 06/22/161848 Order Status: Completed Specimen Information: Urine, Clean Catch Updated: 06/22/16 19 09 COLOR UA STRAW CLARITY CLEAR Specific [place], UA 1.005 1.002 - 1.030 LEUKOCYTE ESTERASE NEGATIVE NEGATIVE NITRITE NEGATIVE NEGATIVE UROBILINOGEN NORMAL <1.1 mg/dL PROTEIN NEGATIVE NEGATIVE mg/dL PH,URINE 7.0 5.0 - 8.0 BLOOD NEGATIVE NEGATIVE KETONES NEGATIVE NEGATIVE mg/dL BILIRUBIN NEGATIVE NEGATIVE GLUCOSE NEGATIVE NEGATIVE mg/dL Urine Test [[id number]] Collected: 06/22/161848 Order Status: Completed Specimen Information: [...] as soon as possible for a visit [address] [place] [id number] Allegra Chaudhary PA-C In 1 week [address] [place] [id number] [facility] If symptoms worsen [address] [place] [address] [phone] Discharge Medications: Discharge Medication List as of [...] 06/22/161745 Date of Service: 06/22/161745 Status: Signed Hand Meat Salter: Sd Comer RN (Registered Nurse) Patient given [...] EXTERNAL | | | | performed at [facility];888 | K/uL | LAB | | | | [address];[place] | | | | | | [address] | | | | + + + + + + | Non- | 4.46Comment: Testing | 3.70 - 5.10 | EXTERNAL | | | Red Blood | performed at [facility];888 | M/uL | LAB | | | Cells | [address];[place] | | | | | Counted | [address] | | | | + + + + + + | Hemoglobin | 13.9Comment: Testing | 11.3 - 15.5 | EXTERNAL | | | | performed at [facility];888 | g/dL | LAB | | | | [address];[place] | | | | | | [address] | | | | + + + + + + | Hematocrit, | 41.0Comment: Testing | 34.0 - 46.0 % | EXTERNAL | | | POC | performed at [facility];888 | | LAB | | | | [address];[place] | | | | | | [address] | | | | + + + + + + | MCV | 91.9Comment: Testing | 80.0 - 100.0 fl | EXTERNAL | | | | performed at [facility];[address] | | LAB | | | | [address];[place] | | | | | | [address] | | | | + + + + + + | MCH | 31.1Comment: Testing | 27.0 - 34.0 pg | EXTERNAL | | | | performed at [facility];[address] | | LAB | | | | [address];[place] | | | | | | [address] | | | | + + + + + + | MCHC | 33.9Comment: Testing | 32.0 - 35.5 | EXTERNAL | | | | performed at [facility];888 | g/dL | LAB | | | | [address];[place] | | | | | | [address] | | | | + + + + + + | RDW-CV | 40.3Comment: Testing | 37 - 53 fl | EXTERNAL | | | | performed at [facility];888 | | LAB | | | | [address];[place] | | | | | | [address] | | | | + + + + + + | Platelet | 203Comment: Testing | 150 - 400 K/uL | EXTERNAL | | | Count | performed at [facility];888 | | LAB | | | Plasma | [address];[place] | | | | | | [address] | | | | + + + + + + | MPV | 8.3Comment: Testing | fl | EXTERNAL | | | | performed at [facility];[address] | | LAB | | | | [address];[place] | | | | | | [address] | | | | + + + + + + | Differentia | AUTOMATEDComment: | | EXTERNAL | | | l Type | Testing performed at | | LAB | | | | [facility];[address];[place] [address] | | | | + + + + + + | % Segmented | 65.86Comment: Testing | % | EXTERNAL | | | | performed at [facility];888 | | LAB | | | Neutrophils | [address];[place] | | | | | | [address] | | | | + + + + + + | % | 25.52Comment: Testing | % | EXTERNAL | | | Lymphocytes | performed at [facility];[address] | | LAB | | | | [address];[place] | | | | | | [address] | | | | + + + + + + | % Monocytes | 6.38Comment: Testing | % | EXTERNAL | | | | performed at [facility];888 | | LAB | | | | [address];[place] | | | | | | [address] | | | | + + + + + + | % | 1.61Comment: Testing | % | EXTERNAL | | | Eosinophils | performed at [facility];[address] | | LAB | | | | [address];[place] | | | | | | [address] | | | | + + + + + + | % Basophils | 0.63Comment: Testing | % | EXTERNAL | | | | performed at [facility];[address] | | LAB | | | | [address];[place] | | | | | | [address] | | | | + + + + + + | Absolute | 6.91Comment: Testing | 1.90 - 7.40 | EXTERNAL | | | Segmented | performed at [facility];888 | K/uL | LAB | | | Neutrophils | [address];[place] | | | | | | [address] | | | | + + + + + + | Absolute | 2.68Comment: Testing | 1.00 - 3.90 | EXTERNAL | | | Lymphocytes | performed at [facility];888 | K/uL | LAB | | | | [address];[place] | | | | | | [address] | | | | + + + + + + | Absolute | 0.67Comment: Testing | 0.00 - 0.80 | EXTERNAL | | | Monocytes | performed at [facility];888 | K/uL | LAB | | | | [address];[place] | | | | | | [address] | | | | + + + + + + | Absolute | 0.17Comment: Testing | 0.00 - 0.50 | EXTERNAL | | | Eosinophils | performed at [facility];888 | K/uL | LAB | | | | [address];[place] | | | | | | [address] | | | | + + + + + + | Absolute | 0.07Comment: Testing | 0.00 - 0.10 | EXTERNAL | | | Basophils | performed at [facility];[address] | K/uL | LAB | | | | [address];[place], [place] | | | | | | [address] | | | | + + + [...] EXTERNAL | | | | performed at [facility] | | LAB | | | | [address];[place], [place] | | | | | | [address] | | | | + + + [...] EXTERNAL | | | | performed at [facility];888 | | LAB | | | | [address];[place] | | | | | | [address] | | | | + + + [...] LAB | | | | performed at [facility];[address] | | | | | | [address];[place], [place] | | | | | | [address] | | | | + + + [...] EXTERNAL | | | | performed at [facility];8 | | LAB | | | | [address];[place] | | | | | | [address] | | | | + + + [...] EXTERNAL | | | | performed at [facility];888 | mmol/L | LAB | | | | [address];[place], [place] | | | | | | [address] | | | | + + + [...] EXTERNAL | | | | performed at [facility];888 | | LAB | | | | [address];[place] | | | | | | [address] | | | | + + + [...] EXTERNAL | | | | performed at [facility];888 | mmol/L | LAB | | | | [address];[place] | | | | | | [address] | | | | + + + + + + | K | 3.8Comment: Testing | 3.5 - 4.9 | EXTERNAL | | | | performed at [facility];888 | mmol/L | LAB | | | | [address];[place] | | | | | | [address] | | | | + + + + + + | Cl | 104Comment: Testing | 99 - 109 mmol/L | EXTERNAL | | | | performed at [facility];[address] | | LAB | | | | [address];[place] | | | | | | [address] | | | | + + + + + + | CO2 | 27Comment: Testing | 23 - 32 mmol/L | EXTERNAL | | | | performed at [facility];[address] | | LAB | | | | [address];[place] | | | | | | [address] | | | | + + + + + + | Anion Gap | 12Comment: Testing | 5 - 20 mmol/L | EXTERNAL | | | | performed at [facility];[address] | | LAB | | | | [address];[place] | | | | | | [address] | | | | + + + + + + | Glucose, | 80Comment: Testing | 65 - 99 mg/dL | EXTERNAL | | | Fasting | performed at [facility];[address] | | LAB | | | | [address];[place] | | | | | | [address] | | | | + + + + + + | BUN | 4 (L)Comment: Testing | 8 - 25 mg/dL | EXTERNAL | | | | performed at [facility];[address] | | LAB | | | | [address];[place] | | | | | | [address] | | | | + + + + + + | Creatinine | 0.83Comment: Testing | 0.50 - 1.00 | EXTERNAL | | | | performed at [facility];888 | mg/dL | LAB | | | | [address];[place] | | | | | | [address] | | | | + + + + + + | BUN/Creatin | 5Comment: Testing | | EXTERNAL | | | ine Ratio | performed at [facility];[address] | | LAB | | | | [address];[place] | | | | | | [address] | | | | + + + + + + | Calcium | 9.1Comment: Testing | 8.5 - 10.5 | EXTERNAL | | | | performed at [facility];888 | mg/dL | LAB | | | | [address];[place] | | | | | | [address] | | | | + + + + + + | Protein, | 7.4Comment: Testing | 6.3 - 8.2 g/dL | EXTERNAL | | | Total | performed at [facility];[address] | | LAB | | | | [address];[place] | | | | | | [address] | | | | + + + + + + | Albumin | 4.5Comment: Testing | 3.6 - 5.0 g/dL | EXTERNAL | | | | performed at [facility];[address] | | LAB | | | | [address];[place] | | | | | | [address] | | | | + + + + + + | Globulin | 3.0Comment: Testing | 1.3 - 4.9 g/dL | EXTERNAL | | | | performed at [facility];[address] | | LAB | | | | [address];[place] | | | | | | [address] | | | | + + + + + + | A/G Ratio | 1.5Comment: Testing | 1.0 - 2.4 | EXTERNAL | | | | performed at [facility];[address] | | LAB | | | | [address];[place] | | | | | | [address] | | | | + + + + + + | Bilirubin | 0.6Comment: Testing | 0.1 - 1.5 mg/dL | EXTERNAL | | | Total | performed at [facility];[address] | | LAB | | | | [address];[place] | | | | | | [address] | | | | + + + + + + | ALP, | 61Comment: Testing | 35 - 115 U/L | EXTERNAL | | | External | performed at [facility];[address] | | LAB | | | | [address];[place] | | | | | | [address] | | | | + + + + + + | AST | 7 (L)Comment: Testing | 10 - 45 U/L | EXTERNAL | | | | performed at [facility];[address] | | LAB | | | | [address];[place] | | | | | | [address] | | | | + + + + + + | ALT | 20Comment: Testing | 10 - 65 U/L | EXTERNAL | | | | performed at [facility];[address] | | LAB | | | | [address];[place] | | | | | | [address] | | | | + + + [...] | | | | | | at [facility];[address];[place] [address] | | | | + + + [...] EXTERNAL | | | | performed at [facility] | | LAB | | | | [address];[place] | | | | | | [address] | | | | + + + + + + | Clarity, | CLEARComment: Testing | | EXTERNAL | | | Urine | performed at [facility];[address] | | LAB | | | | [address];[place] | | | | | | [address] | | | | + + + + + + | Specific | 1.005Comment: Testing | 1.002 - 1.030 | EXTERNAL | | | [place], | performed at [facility];888 | | LAB | | | Urine | [address];[place] | | | | | | [address] | | | | + + + + + + | Leukocyte | NEGATIVEComment: Testing | | EXTERNAL | | | Esterase, | performed at [facility];888 | | LAB | | | Urine | [address];[place] | | | | | | [address] | | | | + + + + + + | Nitrite, | NEGATIVEComment: Testing | | EXTERNAL | | | Urine | performed at [facility];888 | | LAB | | | | [address];[place] | | | | | | [address] | | | | + + + + + + | Urobilinoge | NORMALComment: Testing | mg/dL | EXTERNAL | | | n, Urine | performed at [facility];888 | | LAB | | | | [address];[place] | | | | | | [address] | | | | + + + + + + | Protein, | NEGATIVEComment: Testing | mg/dL | EXTERNAL | | | Urine | performed at [facility];[address] | | LAB | | | | [address];[place] | | | | | | [address] | | | | + + + + + + | pH, Urine | 7.0Comment: Testing | 5.0 - 8.0 | EXTERNAL | | | | performed at [facility];888 | | LAB | | | | [address];[place] | | | | | | [address] | | | | + + + + + + | Blood, | NEGATIVEComment: Testing | | EXTERNAL | | | Urine | performed at [facility];[address] | | LAB | | | | [address];[place] | | | | | | [address] | | | | + + + + + + | Ketones | NEGATIVEComment: Testing | mg/dL | EXTERNAL | | | | performed at [facility];[address] | | LAB | | | | [address];[place] | | | | | | [address] | | | | + + + + + + | Bilirubin, | NEGATIVEComment: Testing | | EXTERNAL | | | Urine | performed at [facility];[address] | | LAB | | | | [address];[place] | | | | | | [address] | | | | + + + + + + | Glucose, | NEGATIVEComment: Testing | mg/dL | EXTERNAL | | | Urine | performed at [facility];888 | | LAB | | | | [address];[place], [place] | | | | | | [address] | | | | + + + [...] | | | Ur | performed at [facility] | | LAB | | | | [address];[place], [place] | | | | | | [address] | | | | + + + [...]
--- OUTSIDE RECORDS SUMMARY | ~2020-06-28 | XMS | Encounter Summary ---
Demographics + + + | Address | [address] | | | [place] [address] | + + + | Home Phone [...] Providers + +------+ + | Care Executive Administrator Name | Role | Phone | [...] | | | 2019 | Event | [facility] | MD Juan [address] | | | | | and Healing Surgery | [address] | | | | | Center Admitting | [place], [place] | | | | | Desk Located on the | [address] | | | | | 4th floor [address] | [phone] | | | | | [address] [place], | | | | | | [place] [address] | Arben Valerio MD | | | | | | [address] | | | | | | [address] | | | | | | [place], [place] | | | | | | [address] | | | | | | [phone] | | | | | | | [...]
--- OUTSIDE RECORDS SUMMARY | ~2020-06-28 | XMS | Encounter Summary ---
Demographics + + + | Address | [address] | | | [place] [address] | + + + | Home Phone [...] Team Providers + +------+ + | Care Building Principal Name | Role | Phone | + +------+ + | Justo Vazquez MD | PCP | | + +------+ + Encounter Details +--------+ + + + + | Date | Type | Department | Care Team | Description | +--------+ + + + + | 04/23/ | Pharmacy | [facility] | | | | 2019 | Visit | & [facility] | | | | | | [address] | | | | | | Mailcode: [place] | | | | | | [facility] and | | | | | | Healing, Building [address] | | | | | | [place], [place] | | | | | | [address] | | | | | | [phone] | | | +--------+ + + + [...]
--- OUTSIDE RECORDS SUMMARY | ~2020-06-28 | XMS | Encounter Summary ---
Demographics + + + | Address | [address] | | | [place] [address] | + + + | Home Phone [...] Team Providers + +------+ + | Care Sill Worker Name | Role | Phone | [...] | | 2015 | | Center at [facility] [address] | MD Melissa | | | | | S [facility] | | | | | | for Health and | | | | | | Healing, Building [address] | | | | | | [place], [place] | | | | | | [address] | | | | | | [phone] | | | +--------+ + + + [...]
--- OUTSIDE RECORDS SUMMARY | ~2020-06-28 | XMS | Encounter Summary ---
Demographics + + + | Address | [address] | | | [place] [address] | + + + | Home Phone [...] Providers + +------+ + | Care Band Bias Machine Operator Name | Role | Phone [...] | Pain Center at | [address] | | | | | [facility] | [address] [address] | | | | | [address] | [place], [place] | | | | | Center for Health | [address] | | | | | and Healing, | [phone] | | | | | [facility] | | | | | | Floor [place], [place] | | | | | | [address] | | | | | | [phone] | | | +--------+ + + + [...]
--- OUTSIDE RECORDS SUMMARY | ~2020-06-28 | XMS | Encounter Summary ---
Demographics + + + | Address | [address] | | | [place] [address] | + + + | Home Phone [...] Providers + +------+ + | Care Nurse Examiner Name | Role | Phone | [...] | | 2015 | | Center at [facility] [address] | MD Melissa | | | | | [address] [facility] | | | | | | for Health and | | | | | | [facility], Building [address] | | | | | | [place], [place] | | | | | | [address] | | | | | | [phone] | | | +--------+ + + + [...]
--- OUTSIDE RECORDS SUMMARY | ~2020-06-28 | XMS | Encounter Summary ---
Demographics + + + | Address | [address] | | | [place] [address] | + + + | Home Phone [...] Providers + +------+ + | Care Legal Records Manager Name | Role | Phone | + +------+ + | Justo Vazquez MD | PCP | | + +------+ + Encounter Details +--------+ + + + + | Date | Type | Department | Care Team | Description | +--------+ + + + + | 10/03/ | Telephone | [facility] | Ilene Bright, | | | 2017 | | Pain Center at | [facility] [address] | | | | | [facility] | [place], [place] | | | | | [address] | [address] | | | | | [place] for [facility] | [phone] | | | | | and Healing, | | | | | | | | | | | | Floor [place], [place] | | | | | | [address] | | | | | | [phone] | | | +--------+ + + + [...]
--- OUTSIDE RECORDS SUMMARY | ~2020-06-28 | XMS | Encounter Summary ---
Demographics + + + | Address | [address] | | | [place] [address] | + + + | Home Phone [...] Providers + +------+ + | Care Asphalt Tamper Name | Role | Phone | [...] | Pain Center at | [address] | | | | | [facility] | [facility] [id number] | | | | | [address] | [place], [place] | | | | | Center for Health | [address] | | | | | and Healing, | [phone] | | | | | [facility] | | | | | | Floor [place], [place] | | | | | | [address] | | | | | | [phone] | | | +--------+ + + + [...]
--- OUTSIDE RECORDS SUMMARY | ~2020-06-28 | XMS | Encounter Summary ---
Demographics + + + | Address | [address] | | | [place] [address] | + + + | Home Phone [...] Providers + +------+ + | Care Safety Fire Boss Name | Role | Phone | + +------+ + | Justo Vazquez MD | PCP | | + +------+ + Encounter Details +--------+ + + + + | Date | Type | Department | Care Team | Description | +--------+ + + + + | 10/20/ | Telephone | [facility] | [place] Bright, | | | 2017 | | Pain Center at | DIRECTORY CARRIER [address] | | | | | [facility] | [place], [place] | | | | | [address] | [address] | | | | | [place] for [facility] | [phone] | | | | | and Healing, | | | | | | | | | | | | Floor [place], [place] | | | | | | [address] | | | | | | [phone] | | | +--------+ + + + [...]
--- OUTSIDE RECORDS SUMMARY | ~2020-06-28 | XMS | Encounter Summary ---
Demographics + + + | Address | [address] | | | [place] [address] | + + + | Home Phone [...] Providers + +------+ + | Care Crusher Machine Operator Name | Role | Phone [...] at [facility] [address] | MD Melissa | | | | | [address] [facility] | | | | | | for Health and | | | | | | [facility], [address] | | | | | | [place], [place] | | | | | | [address] | | | | | | [phone] | | | +--------+ + + + [...]
--- OUTSIDE RECORDS SUMMARY | ~2020-06-28 | XMS | Encounter Summary ---
Demographics + + + | Address | [address] | | | [place] [address] | + + + | Home Phone [...] Providers + +------+ + | Care Senior Security Analyst Name | Role | Phone | [...] | Diagnoses | Beulah | Edu Pt Research Laboratory Specialist | | | | Therapy | CRPS | Janak Martinez MD | Chh[address] | | | | | (complex | [address] | | | | | regional | [address] | Mailcode: | | | | | pain | Mailstop | [facility] | | | | | syndrome), | [id number] | for Health | | | | | lower limb | [place], [place] | and Healing, | | | | | Gait | [address] | Building 1 | | | | | disturbance | Phone: | [place], [place] | | | | | Muscle pain | [phone] | [address] | | | | | Procedures | Fax: | Phone: | | | | | PHYSICAL | [phone] | [phone] | | | | | THERAPY | [...] | | | | [address] | [place] [address] | syndrome), lower | | | | [address] | [phone] | limb (Primary Dx) | | | | [facility] | | | | | | and Healing, | | | | | | Building 1, | | | | | | Floor [place], [place] | | | | | | [address] | | | | | | [phone] | | | +--------+---------+ + + + [...] might be different f rom the original. [id number] BRODY FARAH Date of : 1990 Start of care: 02/14/2012 Date of onset: 02/14/2012 Referring/Attending Practitioner: Janak Riojas MD . Primary/Referral Diagnosis/ICD-9: 355.71B CRPS (complex regional pain syndrome), lower limb Insurance: Payor: [facility] [employer] [facility] Plan: BCBS OUT OF STATE Product Type: PP O Service period from: 02/14/2012 to: 08/12/2012 Number visits used/authorized: 11/25 [facility] PHYSICAL THERAPY INITIAL EVALUATION SUBJECTIVE: Age: [...] no pain relief. Admitted to the inpatient [facility] program for 1 month in [...] Diagnostic evaluation: Records from CRPS program at [facility]. Suggest three phase bone sca n. [...] employed by the psychologists here at the [facility]. 2.2 Physical therapy can reduce pain and improve functional status. Suggest Guillermo Sanon. 3. Medication suggestions: 3.1 Continue titrating up duloxetine. 3.2 As for any patient being managed with chronic opioids, we do recommend that the patient have a signed [facility] Material Risk Notice, agree to whatever [...] oidectomy. Social History: lives in [place], 22 years old, not working currently, in [...] about therapy: she lives in [place]. She is r equesting family members or [...] provided with a token and bocanegra for [facility] site. Treatment began: 1345hrs Treatment ended: 1430hrs Manual therapy: 0min Therapeutic exercise: 15 min ASSESSMENT: pt presents with 10-year history of ankle pain post trauma and multiple surgeri es. She thinks she developed CRPS in 2004. She was diagnosed with CRPS and spent a month in the program at [facility] working through aggressive desensitization and activation which prov ided no lasting benefit. She lives in [place], is going to school, and ambulates with [...] She can work with her PT in [facility] [facility] [place]. CLINICAL PRIORITIES: 1-follow up with Dr Riojas [...] in their status. Guillermo Sanon MSPT [facility] Outpatient Rehabilitation Services Mailcode: Ch3p [address] [facility], 1st [facility] [address] documented in this encounter Plan of Treatment Not on filedocumented as of this encounter Procedures + +--------+ + + + | Procedure Name | Priori | Date/Time | Associated Diagnosis | Comments | | | ty | | | | + +--------+ + + + | DC THERAPEUTIC | Routin | 02/16/2012 | CRPS (complex | | | EXERCISES | e | 3:34 PM | regional pain | | | | | PDT | syndrome), lower | | | | | | limb | | + +--------+ + + + | DC PHYS THERAPY | Routin | 02/16/2012 | [...]
--- OUTSIDE RECORDS SUMMARY | ~2020-06-28 | XMS | Encounter Summary ---
Demographics + + + | Address | [address] | | | [place] [address] | + + + | Home Phone [...] Providers + +------+ + | Care Rn Orthopaedic Name | Role | Phone | + [...] (plan of care) | | | | [facility] | [address] | | | | | [address] | [place], [place] | | | | | [facility] | [address] | | | | | and Healing, | [phone] | | | | | | | | | | | Floor [place], [place] | | | | | | [address] | | | | | | [phone] | | | +--------+ + + + [...]
--- OUTSIDE RECORDS SUMMARY | ~2020-06-28 | XMS | Encounter Summary ---
Demographics + + + | Address | [address] | | | [place] [address] | + + + | Home Phone [...] Providers + +------+ + | Care Assembler Plastic Boat Name | Role | Phone | + +------+ + | Justo Vazquez MD | PCP | | + +------+ + Encounter Details +--------+ + + + + | Date | Type | Department | Care Team | Description | +--------+ + + + + | 07/26/ | MyChart | [facility] Comprehensive | Ilene Bright, | Labs | | 2017 | Encounter | Pain Center at | CORPORATE RECEPTIONIST [address] | | | | | [facility] | [place], [place] | | | | | [address] | [address] | | | | | [place] for [facility] | [phone] | | | | | and Healing, | | | | | | | | | | | | Floor [place], [place] | | | | | | [address] | | | | | | [phone] | | | +--------+ + + + [...]
--- OUTSIDE RECORDS SUMMARY | ~2020-06-28 | XMS | Encounter Summary ---
Demographics + + + | Address | [address] | | | [place] [address] | + + + | Home Phone [...] Team Providers + +------+ + | Care Packer Fuser Name | Role | Phone | + [...] | 2016 | Encounter | Center at [facility] [address] | | results | | | | [facility] | | | | | | for Health and | | | | | | Healing, Building 2 | | | | | | [place], [place] | | | | | | [address] | | | | | | [phone] | | | +--------+ + + + [...]
--- OUTSIDE RECORDS SUMMARY | ~2020-06-28 | XMS | Encounter Summary ---
Demographics + + + | Address | [address] | | | [place] [address] | + + + | Home Phone [...] Team Providers + +------+ + | Care Ctrs Name | Role | Phone | + [...] | | Pain Center at | ,PhD [address] | denied) | | | | [facility] | [facility] | | | | | [address] | [place], [place] | | | | | [facility] | [address] | | | | | and Martina, | [phone] | | | | | [facility] | | | | | | Floor [place], [place] | | | | | | [address] | | | | | | [phone] | | | +--------+ + + + [...]
--- OUTSIDE RECORDS SUMMARY | ~2020-06-28 | XMS | Encounter Summary ---
Demographics + + + | Address | [address] | | | [place] [address] | + + + | Home Phone [...] Team Providers + +------+ + | Care Visualizer Name | Role | Phone | + [...] Rd | | | | | | [place], [place] | | | | | | [address] | | | +--------+ + + + [...]
--- OUTSIDE RECORDS SUMMARY | ~2020-06-28 | XMS | Encounter Summary ---
Demographics + + + | Address | [address] | | | [place] [address] | + + + | Home Phone [...] Phone | + + +---------+ + | Patriica Colin | ECON | Unknown | | + + +---------+ + Care Team Providers + +------+ + | Care Ring Spinner Name | Role | Phone | [...] | | syndrome | [address] | [facility] | | | | | type 1 of | Rd | Rd [place], | | | | | left lower | [place], [place] | [place] | | | | | extremity | [address] | [address] | | | | | Procedures | Phone: | Phone: | | | | | REQUEST TO | [phone] | [phone] | | | | | SURGERY | Fax: | Fax: | | | | | MOBILE SECURITY SPECIALIST | [phone] | [phone] | +--------+---------+ + + + + Encounter Details +--------+---------+ + + + | Date | Type | Department | Care Team | Description | +--------+---------+ + + + | 09/28/ | Office | [facility] Comprehensive | Yun Frey, SURVEY RESEARCH MANAGER | Complex regional | | 2018 | Visit | Pain Center at | [address] | pain syndrome type 1 | | | | [place] | [place], [place] | of left lower | | | | [address] | [address] | extremity (Primary | | | | Center for [facility] | [phone] | Dx); Arthralgia of | | | | and Healing, | | left lower leg | | | | | | | | | | [place], [place] | | | | | | [address] | | | | | | [phone] | | | +--------+---------+ + + + [...] Dr. Sanchez on 10/02/2018. -Please contact the [facility]'s rep if you have any further question [...] PM PST September 28, 2018 Tracie Farah [id number] [facility] Comprehensive Pain Center Return Visit Chief [...] and a pain drawing which I reviewed. [facility] Questionnaire Follow-up Patient 10/10/2017 Please [...] PROCEDURE: DRG Spinal Cord Stimuation Trial with [employer]. Nurego system LEVEL/LATERALITY: left L4, L5. Till date, [...] turned up to 7%. After seeing th employer relations representative today and killian ing adjustments, she [...] spinal cord stimulator leads 08/02/2012 [facility], Surgeon: Janak Riojas MD Cholecystectomy Appendectomy Other [...] the vein (IV) every eight hour s. 5164-0583-16 COMPOUNDED MED RX CONTROLLED (SEE ADMIN INSTRUCT [...] by physician. Concentration is 150mg/mL. Compounded by [facility] ) KETOROLAC IM Inject into the [...] (IV) every twel ve hours as needed. 2927-8457-45 ONDANSETRON 4 MG DISINTEGRATING TABLET Dissolve 1 tablet in mouth every twelve hours as nee ded. PANTOPRAZOLE 40 MG TABLET,DELAYED RELEASE Take 40 mg by mouth once daily. PEG 3350-ELECTROLYTES 236 GRAM-22.74 GRAM-6.74 GRAM-5.86 GRAM SOLUTION Take as directed by [facility] Digestive [facility]- 2 gallon bowel prep POLYETHYLENE [...] been given programming opti ons by the [employer]'s device employer relations representative, Michele. At this time, there is no complication from the DRG trial. Recommendations/Plan: 1. Recommend to keep her appointment with Dr. Sanchez on 10/02/2018. 2. To contact the [employer]'s rep if she has any further question on programming. 09/28/2018: I, Dayana Ivan, am functioning as a bilingual medical receptionist for Yun Fery NP. I have reviewed and verified the above scribed note of my visit with this patient as record ed by Ms. Dayana Ivan. Jeanine Frey (Mr.) MSN, ACNP- Nurse Practitioner Acute Pain Service /[facility] [address] [place] [address] documented in this enco unter Plan of [...]
--- OUTSIDE RECORDS SUMMARY | ~2020-06-28 | XMS | Encounter Summary ---
Demographics + + + | Address | [address] | | | [place] [address] | + + + | Home Phone [...] Team Providers + +------+ + | Care Advanced Practice Nurse Psychotherapist Name | Role | Phone | + +------+ + | Justo Vazquez MD | PCP | | + +------+ + Encounter Details +--------+ + + + + | Date | Type | Department | Care Team | Description | +--------+ + + + + | 12/12/ | Telephone | [facility] | Alex Sanchez, | | | 2019 | | Pain Center at | ,PhD [address] | | | | | [facility] | [address] | | | | | [address] | [employer], [place] | | | | | [place] for [facility] | [address] | | | | | and Healing, | [phone] | | | | | | | | | | | Floor [place], [place] | | | | | | [address] | | | | | | [phone] | | | +--------+ + + + [...]
--- OUTSIDE RECORDS SUMMARY | ~2020-06-28 | XMS | Encounter Summary ---
Demographics + + + | Address | [address] | | | [place] [address] | + + + | Home Phone [...] Providers + +------+ + | Care Specialty Therapist Name | Role | Phone | [...] | | pain | [address] | [place], [place] | | | | | syndrome | [place], [place] | [address] | | | | | type 1 of | [address] | Phone: | | | | | left lower | Phone: | [phone] | | | | | extremity | [phone] | Fax: | | | | | Midline low | Fax: | [phone] | | | | | back pain | [phone] | | | | | | without [...] Ave | | | | | | [place], [place] | [facility] [place] | | | | | | [address] | [address] | | | | | | Phone: | Phone: | | | | | | [phone] | [phone] | | | | | | Fax: | Fax: | | | | | | [phone] | [phone] | +--------+---------+ + + + + Encounter Details +--------+---------+ + + + | Date | Type | Department | Care Team | Description | +--------+---------+ + + + | 07/04/ | Office | [facility] Comprehensive | Lane Reyes, | Complex regional | | 2019 | Visit | Pain Center at | [place] [address] | pain syndrome type 1 | | | | [place] | [place], [place] | of left lower | | | | [address] | [address] | extremity (Primary | | | | [facility] | [phone] | Dx); Midline low | | | | and Healing, | | back pain without | | | | Building | | sciatica, | | | | Floor [place], [place] | | unspecified | | | | [address] | | chronicity; | | | | [phone] | | Sacroiliac pain; | | | [...] and help in coping with the pain. [place] Brief Pain Inventory: (ten= worst possible pain [...] Hemroidectomy Trial spinal cord stimulator leads 08/02/2012 [facility], Surgeon: Janak Riojas MD Cholecystectomy Appendectomy [...] a light load. Has been working at [employer], can' t work on crNeediumches. Has roommates. Allergies Allergen Reactions Morphine Anaphylaxis [...] directed by [facility] Digestive [facility]- 2 gallon bowel prep POLYETHYLENE GLYCOL 3350 17 GRAM/DOSE ORAL POWDER Take 17 g by mouth once daily. PROMETHAZINE 12.5 MG TABLET Take 1 tablet by mouth four times daily as needed for nausea/vo miting. SUCRALFATE 1 GRAM TABLET Take 1 g by mouth four times daily. Radiology/Diagnostic Tests: X-RAY SPINE CERV 4 VIEWS Order: [id number] Performed: 06/12/2018 11:40 Status: Final result Visible [...] that the treatment performed by the chiropractic graduate intern, Niesha Reveles, was directly observed by myself the primary chiropractor Lane Reyes [place] Visit Diagnoses: ICD-10-CM 1. Complex regional pain syndrome type 1 of left lower extremity G90.522 CONSULT TO PAIN [facility] 2. Midline low back pain without sciatica, unspecified chronicity M54.5 CONSULT TO PAIN [facility] 3. Sacroiliac pain M53.3 CONSULT TO PAIN [...] verified the above note written by Chiropractic graduate intern of our visit wit h this patient as recorded by Lane Reyes [place] [facility] AT [address] Mail Code: Ch15p [place] [address] documented in this e ncounter [...]
--- OUTSIDE RECORDS SUMMARY | ~2020-06-28 | XMS | Encounter Summary ---
Demographics + + + | Address | [address] | | | [place] [address] | + + + | Home Phone [...] Team Providers + +------+ + | Care Hacksaw Inspector Name | Role | Phone | [...] ogy | | Ava Torres, | Chh2 [address] | | | | | Constipation | [address] | [address] | | | | | , | [address] | Calcium for | | | | | unspecified | [address] | Health and | | | | | constipation | [facility] [place] | Healing, | | | | | type | [address] | Building 2 | | | | | Procedures | | [place], [place] | | | | | CONSULT TO | | [address] | | | | | GI PROCEDURE | | Phone: | | | | | UNIT: | | [phone] | | | | | ANORECTAL | | Fax: | | | | | MANOMETRY | | [phone] | | | | | [place] ANAL [...] | ogy | | [place], | [address] | | | | | Gastroparesi | Allegra Nieto, | [address] | | | | | s | [place] [address] | Center for | | | | | | [address] | Health and | | | | | | [place], | Healing, | | | | | | [place] [address] | Building 2 | | | | | | Phone: | [place], [place] | | | | | | [phone] | [address] | | | | | | Fax: | Phone: | | | | | | [phone] | [phone] | | | | | | | Fax: | | | | | | | [phone] | +--------+--------+ + + + + Encounter Details +--------+---------+ + + + | Date | Type | Department | Care Team | Description | +--------+---------+ + + + | 08/10/ | Office | Digestive Health | Ava Carbajal | Constipation, | | 2015 | Visit | Center at [facility] [address] | MD Melissa | unspecified | | | | [address] [facility] | | constipation type | | | | for Health and | | (Primary Dx) | | | | Healing, [address] 2 | | | | | | [place], [place] | | | | | | [address] | | | | | | [phone] | | | +--------+---------+ + + + [...] in their attached note. Celia Lin MD Safety Engineer Pressure Vesselsnews videographer Division of Gastroenterology & Hepatology [facility] va Carbajal MD - 08/09/2016 8:40 PM PDT Gastroenterology Initial Clinic Note 08/09/2016 CHIEF COMPLAINT/IDENTIFICATION: "Gastroparesis"-Nausea emesis and abdominal pain -SECOND O GERMAINE Dr. Flores-Radha [facility] PCP: HANDY Villalpando HISTORY OF PRESENT [...] Dr. Flores in [facility] at [facility]. Patient has hx of GERD [...] CT abdomen w contrast done at [facility] on 10/23/15 showing large stool burden [...] GI MDS: Dr. Nyla Garcia GI Dr. [facility] LABS: -increased CRP 06/19/16: Lipase-normal (8) [...] form versus functional syndrome. Would also con consulting business developer GERD as a cause for her [...]
--- OUTSIDE RECORDS SUMMARY | ~2020-06-28 | XMS | Encounter Summary ---
Demographics + + + | Address | [address] | | | [place] [address] [...] Team Providers + +------+ + | Care Tracer Powder Blender Name | Role | Phone | + +------+ + | Allegra Gandhi | PCP | | + +------+ + Encounter Details +--------+ + + + + | Date | Type | Department | Care Team | Description | +--------+ + + + + | 02/13/ | Outside | UNKNOWN DEPARTMENT | Other, Faculty | | | 2011 | Records | [address] | [phone] | | | | | [address] | | | | | | [place], [place] | | | | | | [address] | | | +--------+ + + + [...]
--- OUTSIDE RECORDS SUMMARY | ~2020-06-28 | XMS | Encounter Summary ---
Demographics + + + | Address | [address] | | | [place] [address] | + + + | Home Phone [...] Team Providers + +------+ + | Care Cost Estimator Name | Role | Phone | [...] Oliveira | | 2011 | IP | [address] | | House - Approved | | | | Giuliana Maldonado [place], | | | | | | [place] [address] | | | +--------+ + + + [...]
--- OUTSIDE RECORDS SUMMARY | ~2020-06-28 | XMS | Encounter Summary ---
Demographics + + + | Address | [address] | | | [place] [address] | + + + | Home Phone [...] Team Providers + +------+ + | Care Inpatient Coder Name | Role | Phone | + +------+ + | Justo Vazquez MD | PCP | | + +------+ + Encounter Details +--------+ + + + + | Date | Type | Department | Care Team | Description | +--------+ + + + + | 12/07/ | Router Operator | [facility] at [facility] | Ava Carbajal | | | 2016 | | [place] MD | | | | | [address] [facility] for | | | | | | Health and Healing, | | | | | | Building 2 | | | | | | [place], [place] | | | | | | [address] | | | | | | [phone] | | | +--------+ + + + [...]
--- OUTSIDE RECORDS SUMMARY | ~2020-06-28 | XMS | Encounter Summary ---
Demographics + + + | Address | [address] | | | [place] [address] | + + + | Home Phone [...] + +------+ + | Care Lay Out Machine Operator Name | Role | Phone | + +------+ + | Justo Vazquez MD | PCP | | + +------+ + Encounter Details +--------+ + + + + | Date | Type | Department | Care Team | Description | +--------+ + + + + | 07/28/ | Documentati | [facility] Comprehensive | Ilene Bright, | | | 2017 | on | Pain Center at | BOOKKEEPING MACHINE MECHANIC [address] | | | | | [facility] | [facility] [place] | | | | | [address] | [address] | | | | | [place] for [facility] | [phone] | | | | | and Healing, | | | | | | | | | | | | Floor [place], [place] | | | | | | [address] | | | | | | [phone] | | | +--------+ + + + [...]
--- OUTSIDE RECORDS SUMMARY | ~2020-06-28 | XMS | Encounter Summary ---
Demographics + + + | Address | [address] | | | [place] [address] | + + + | Home Phone [...] Team Providers + +------+ + | Care Pastry Cook Apprentice Name | Role | Phone | [...] | | | | | Constipation | [address] | [address] | | | | | , | [address] | [place] for | | | | | unspecified | [address] | Health and | | | | | constipation | [place], [place] | Healing, | | | | | type | [address] | Building 2 | | | | | Abdominal | | [place], [place] | | | | | pain, | | [address] | | | | | unspecified | | Phone: | | | | | location | | [phone] | | | | | Procedures | | Fax: | | | | | CONSULT TO | | [phone] | | | | | GI PROCEDURE | | | | | | | UNIT: | | | | | | | COLONOSCOPY | | | | | | | MA | | | | | | [...] | | 2015 | | Center at [facility] [address] | MD Melissa | Vomiting (Bile) | | | | [address] | | | | | | for Health and | | | | | | Healing, [address] | | | | | | [place], [place] | | | | | | [address] | | | | | | [phone] | | | +--------+ + + + [...]
--- OUTSIDE RECORDS SUMMARY | ~2020-06-28 | XMS | Encounter Summary ---
Demographics + + + | Address | [address] | | | [place] [address] | + + + | Home Phone [...] | | 2011 | Encounter | at [facility] [address] | | | | | | [address] | | | | | | [address], | | | | | | [place], | | | | | | [place] [address] | | | | | | [phone] | | | +--------+ + + + [...]
--- OUTSIDE RECORDS SUMMARY | ~2020-06-28 | XMS | Encounter Summary ---
Demographics + + + | Address | [address] | | | [place] [address] | + + + | Home Phone [...] Team Providers + +------+ + | Care Pocket Creaser Name | Role | Phone | + [...] | | | | | regional | [place] | [address] | | | | | pain | FAMILY | [facility] | | | | | syndrome), | MEDICINE P | [id number] | | | | | lower limb | [address] | [place], [place] | | | | | Pain in | [place], | [address] | | | | | joint, lower | [place] [address] | Phone: | | | | | leg | Phone: | [phone] | | | | | Procedures | [phone] | Fax: | | | | | REQUEST TO | Fax: | [phone] | | | | | SURGERY | [phone] | | | | | | PRODUCT CRAFTSMAN | | | +--------+--------+ + + + + Encounter Details +--------+ + + + + | Date | Type | Department | Care Team | Description | +--------+ + + + + | 08/02/ | Procedure | Pain Center at [facility] | Dale Cantu, | Procedure; | | 2011 | | [address] | [address] | Injection; Procedure | | | | [facility] | [facility] [id number] | | | | | and Healing, | [place], [place] | | | | | [facility] | [address] | | | | | Floor [place], [place] | [phone] | | | | | [address] | | | | | | [phone] | | | +--------+ + + + [...] e might be different from the original. [facility] Patient Instructions - Post Spinal Cord Stimulator Trial Date: 08/02/2012 Name: Tracie Farah Date of : 1990 Procedure Performed: SCS TRIAL LUMBAR [facility] Procedure Provider: Dale Cantu [facility] Procedure Rm If you have any problems you believe are associated with your procedure tonight, Please call the Hospital Bobcat Driver/Labor, and ask for the Pain Management Consu [...] call for concerns about SCS function. During [facility] open hours, call the [facility] ([phone]), after hours call the spreading machine operator at [facility] ([phone]) and ask for t he Adult Pain Service vocational horticulture instructor. Identify yourself as a Comprehensive [facility] Center [...] the wounds, dressing, or SCS function. During TOOL GRINDER OPERATOR EXTERNAL o pen hours, call the TOOL GRINDER OPERATOR EXTERNAL ([phone]), after hours call the spreading machine operator at [facility] ([phone] ) and ask for the Adult Pain Service vocational horticulture instructor. Identify yourself as my patient with a concer n about postoperative recovery. If there are concerns about the SCS programming, contact t he strategic partnership representative from the SCS facilities maintenance supervisor. If the stimulation is not covering your area o f pain, your SCS should be reprogrammed. Do not take any blood thinning medications during the trial. Instructions printed and reviewed with the patient. Copy of instructions given to Ms. Nemo renee. DALE CANTU MD [facility] Pain Center documented in this encounter [...] and postoperative care instructions. DALE CANTU MD Salt Manager, [facility] Pain [facility] Editor Map, Pain Medicine Professor, Anesthesiology & Perioperative Medicine Diana Arroyo RN - 08/02/2012 7:34 AM PDT PRE-SEDATION: Date: August 02, 2012 Tracie Farah [id number] 1990 ALLERGIES: Morphine Previous reaction to Sedation/Analgesia: MEDICATIONS: Current Outpatient Prescriptions Medication HYDROcodone-acetaminophen (NORCO) 10-325 mg Oral Tablet KETOROLAC TROMETHAMINE (TORADOL IM) levonorgestrel (MIRENA) 20 mcg/24 hr Intrauterine IUD LORazepam 1 mg Oral Tablet ondansetron (ZOFRAN) 8 mg Oral Tablet promethazine 25 mg Oral Tablet Meets NPO Guidelines. IV ACCESS: IV in Place IV Site [facility] 22 g @ 0655 BASELINE VS: See Sedation Flow Sheet. Tracie Donaldson [facility] [id number] 1990, presents to clinic for: Procedure: Spinal [...] 0732 - 0733: [place]azol[place] 2 [place] [address]: Fentanyl 25 mcg IV 0740 - 0741: Midazolam 2 mg IV 0742: Procedure started 0743 - 0744: Fentanyl 50 mcg IV 0753-54: Fentanyl 25 mcg IV Lead # 1 placed Lead # 2 placed 0801: Stimulation started. 0829: Pt reports stimulation to usual areas of pain. Leads secured. 0845: Pt [facility] to [facility] in stable condition. IV dc'd. [...] OPERATIVE NOTE Date: August 02, 2012 Location: [facility] Procedure Room Tracie Farah [id number] :1990, presents to clinic for: PROCEDURE: Spinal Cord Stimuation Trial LEVEL/LATERALITY: midline lumbar PRE-OPERATIVE DIAGNOSIS: 355.71B CRPS (complex regional pain syndrome), lower limb 719.46 Pain in joint, lower leg 781.2Q Gait disturbance POST-OPERATIVE DIAGNOSIS: 355.71B CRPS (complex regional pain syndrome), lower limb 719.46 Pain in joint, lower leg 781.2Q Gait disturbance ATTENDING PHYSICIAN: Dale Cantu MD INTRAVENOUS THERAPY NURSE: Fellow Bear Yost DO ANESTHESIA: sedation delivered [...] to the [facility] Procedure Ro om, where she was positioned Prone on the examination table. TEAM PAUSE: The physician-led pause was conducted, and is documented in the Nursing note. Monitors were placed, including ECG, NIBP and SpO2. The skin was prepared with Chloroprep and sterile drapes were applied. Easy Vino system was used for this procedure. The company strategic partnership representative was theresa knutson for the procedure. [...] pain. Ms. Farah was transported to the [facility] Comprehensive Pain Center post-procedure recovery area where she made an uneventful recovery. Images were saved, and sent to [employer]. Ms. Farah will have her next appointment [...] about wound healing or SCS function. During [facility] open hours, call the [facility] ([phone]), after h ours call the spreading machine operator at [facility] ([phone]) and ask for the Adult Pain Service vocational horticulture instructor. Identify yourself as my patient with a [...] + +--------+ + + + | HI PERCUT IMPLNT | Routin | 08/03/2012 | [...]
--- OUTSIDE RECORDS SUMMARY | ~2020-06-28 | XMS | Encounter Summary ---
Demographics + + + | Address | [address] | | | [place] [address] | + + + | Home Phone [...] Team Providers + +------+ + | Care Objective C Developer Name | Role | Phone | + +------+ + | Justo Vazquez MD | PCP | | + +------+ + Encounter Details +--------+ + + + + | Date | Type | Department | Care Team | Description | +--------+ + + + + | 01/11/ | Procedure | Diagnostic Imaging | | | | 2016 | Pass | Services at [facility] | | | | | | [address] | | | | | | Giuliana Roberson | | | | | | [facility] | | | | | | [place], [place] | | | | | | [address] | | | | | | [phone] | | | +--------+ + + + [...]
--- OUTSIDE RECORDS SUMMARY | ~2020-06-28 | XMS | Encounter Summary ---
Demographics + + + | Address | [address] | | | [place] [address] | + + + | Home Phone [...] Providers + +------+ + | Care Manager Production Name | Role | Phone | + +------+ + | Justo Vazquez MD | PCP | | + +------+ + Encounter Details +--------+ + + + + | Date | Type | Department | Care Team | Description | +--------+ + + + + | 01/09/ | Documentati | Orthopaedics | Ranjeet Amanda, | | | 2018 | on | Faculty at [place] | [address] | | | | | for Health and | [place], [place] | | | | | Healing [address] | [address] | | | | | Ave [place] for | [phone] | | | | | Health and Healing, | | | | | | | | | | | | Floor [facility] [place] | | | | | | [address] | | | | | | [phone] | | | +--------+ + + + [...]
--- OUTSIDE RECORDS SUMMARY | ~2020-06-28 | XMS | Encounter Summary ---
Demographics + + + | Address | [address] | | | [place] [address] | + + + | Home Phone [...] Alex Alba, | [facility] [address] | | | | | regional | ,PhD [address] | Pavilion | | | | | pain | [address] | [address] | | | | | syndrome | [address] | [address], | | | | | type 1 of | Rd | Basement | | | | | left lower | [place], [place] | [place], [place] | | | | | extremity | [address] | [address] | | | | | Muscle pain | Phone: | Phone: | | | | | Procedures | [phone] | [phone] | | | | | NM BONE | Fax: | Fax: | | | | | &/OR JOINT | [phone] | [phone] | | | | | IMAGING | [...] | 12/27/ | Ancillary | [facility] Comprehensive | Alex Sanchez, | | | 2018 | Orders | Pain Center at | ,PhD [address] [facility] | | | | | [facility] | [address] | | | | | [address] | [place], [place] | | | | | [facility] | [address] | | | | | and Martina, | [phone] | | | | | [facility] | | | | | | Floor [place], [place] | | | | | | [address] | | | | | | [phone] | | | +--------+ + + + [...] Note | + + | Service Account, [employer] Res In Interface - 12/28/2017 11:43 AM [...]
--- OUTSIDE RECORDS SUMMARY | ~2020-06-28 | XMS | Encounter Summary ---
Demographics + + + | Address | [address] | | | [place] [address] | + + + | Home Phone [...] Providers + +------+ + | Care Motor Vehicle Compliance Analyst Name | Role | Phone | + +------+ + | Justo Vazquez MD | PCP | | + +------+ + Encounter Details +--------+ + + + + | Date | Type | Department | Care Team | Description | +--------+ + + + + | 05/12/ | MyChart | Pain Center at [facility] | Ewa Melchor, | RE: Schedule change | | 2017 | Encounter | [address] | ELECTRICIAN THIRD [address] | | | | | [place] for [facility] | [address] | | | | | and Healing, | [place] [address] | | | | | | [phone] | | | | | Floor [place], [place] | | | | | | [address] | | | | | | [phone] | | | +--------+ + + + [...]
--- OUTSIDE RECORDS SUMMARY | ~2020-06-28 | XMS | Encounter Summary ---
Demographics + + + | Address | [address] | | | [place] [address] | + + + | Home Phone [...] Providers + +------+ + | Care Pediatric Speech Language Pathologist Name | Role | Phone | [...] | | | | | [address] | | | | | | [address] | | | | | | Liane Cai, | | | | | | [address] [place] [address], | | | | | | [place] [address] | | | | | | [phone] | | | +--------+ + + + [...]
--- OUTSIDE RECORDS SUMMARY | ~2020-06-28 | XMS | Encounter Summary ---
Demographics + + + | Address | [address] | | | [place] [address] | + + + | Home Phone [...] Providers + +------+ + | Care Brass Sorter Name | Role | Phone | [...]
--- OUTSIDE RECORDS SUMMARY | ~2020-06-28 | XMS | Encounter Summary ---
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 Surgery check-in location: [facility] Day Stay - [place] [facility] and [facility], 4th floor Surgery Check in Time: The [...] it is after office hours, call the [facility] blacktop paver operator at [phone] and ask them to page him or h er. documented in this encounter Progress Notes Catie Smart NP - 11/27/2018 2:05 PM PST PREOPERATIVE CONSULT NOTE Author: Catie Smart NP Referring Physician: Alex Sanchez MD Primary Care Provider: Justo Vazquez MD Reason for Consult: Preoperative evaluation and risk assessment Proposed Procedure/Date: implant SCS; 12/05/2018 Proposed Procedure Location: [facility] HISTORY OF PRESENT ILLNESS: Tracie Farah is [...] renal failure no electrolyte abnormalities no dialysis Urology/Laser/Electro Optics Technician: Interstitial cystitis LMP: irreg bleeding, ~11/14/2018, [...] soln Take as directed by [facility] [employer] Sviral [facility]- 2 gallon bowel prep polyethylene glycol [...] Applicable ASSESSMENT and RECOMMENDATIONS: Perioperative risk assessment: Trcaie Farah is a 28 y.o. female with [...] patient is a lso currently scheduled at [facility] [place] and is meeting inclusion criteria for [...] to this patient's care. Catie Smart NP [facility] PBB PREOPERATIVE MEDICINE CLINIC AT [facility] 4TH FLOOR [address] [facility] [address] I advised the patient [...]
--- OUTSIDE RECORDS SUMMARY | ~2020-06-28 | XMS | Encounter Summary ---
Demographics + + + | Address | [address] | | | [place] [address] | + + + | Home Phone [...] + +------+ + | Care Social Media Community Manager Name | Role | Phone | [...] | | | | | Procedures | [place], [place] | | | | | | MR | [id number] | | | | | | ENTEROGRAPHY [...] | 2017 | Visit | Center at [facility] [address] | | unspecified location | | | | [address] [facility] | | (Primary Dx) | | | | for Health and | | | | | | Healing, Building 2 | | | | | | [place], [place] | | | | | | [address] | | | | | | [phone] | | | +--------+---------+ + + + [...] heavy metal poisoning 2) MR enterography - [phone] to schedule 3) can increase miralax to 6 times per day Return to clinic in 3 months Please feel free to call our clinic with any questions. [phone] Kenny Gaspar MD Fellow, Division of Gastroenterology [...] n their attached note. Celia Lin MD Marine Structural Weldermail clerks supervisor Division of Gastroenterology & Hepatology [facility] Kenny Dodge Md - 2016 3:15 PM PST Gastroenterology Clinic Follow-Up Note 01/11/2017 CC/ID: Tracie Farah is a 26 F PMHx depression, complex regional pain syndrome(CRPS ) here for follow-up of n/v, abdominal pain INTERVAL HISTORY: Previously seen by Dr. Carbajal 08/10/16 - 10/2015 - hospitalized at [facility] for nausea/vomiting/pain -> [facility] -> CT [...] oral recon soln Take as directed by [facility]- 2 gallon bowel prep 8000 [...] Note | + + | Service Account, [employer] Res In Interface - 02/01/2017 3:50 PM [...]
--- OUTSIDE RECORDS SUMMARY | ~2020-06-28 | XMS | Encounter Summary ---
Demographics + + + | Address | [address] | | | [place] [address] | + + + | Home Phone [...] Team Providers + +------+ + | Care Programmer Analyst Consultant Name | Role | Phone | + +------+ + | Justo Vazquez MD | PCP | | + +------+ + Encounter Details +--------+ + + + + | Date | Type | Department | Care Team | Description | +--------+ + + + + | 09/27/ | Telephone | [facility] | Ilene Bright, | | | 2017 | | Pain Center at | AGRICULTURE INTERN [address] | | | | | [facility][Note 3] | [place], [place] | | | | | [address] | [address] | | | | | [place] for [facility] | [phone] | | | | | and Healing, | | | | | | | | | | | | Floor [place], [place] | | | | | | [address] | | | | | | [phone] | | | +--------+ + + + [...]
--- OUTSIDE RECORDS SUMMARY | ~2020-06-28 | XMS | Encounter Summary ---
Demographics + + + | Address | [address] | | | [place] [address] | + + + | Home Phone [...] Team Providers + +------+ + | Care Dialysis Registered Nurse Name | Role | Phone | + +------+ + | Justo Vazquez MD | PCP | | + +------+ + Encounter Details +--------+ + + + + | Date | Type | Department | Care Team | Description | +--------+ + + + + | 12/05/ | Pharmacy | [facility] | | | | 2019 | Visit | & [facility]acy | | | | | | [address] | | | | | | Mailcode: [place] | | | | | | [facility] | | | | | | Healing, [address] | | | | | | [place], [place] | | | | | | [address] | | | | | | [phone] | | | +--------+ + + + [...]
--- OUTSIDE RECORDS SUMMARY | ~2020-06-28 | XMS | Encounter Summary ---
Demographics + + + | Address | [address] | | | [place] [address] | + + + | Home Phone [...] Providers + +------+ + | Care Fur Feeder Name | Role | Phone | [...] | (ortho question) | | | | [facility] | [facility] | | | | | [address] | [place], [place] | | | | | [facility] | [address] | | | | | and Healing, | [phone] | | | | | | | | | | | Floor [place], [place] | | | | | | [address] | | | | | | [phone] | | | +--------+ + + + [...]
--- OUTSIDE RECORDS SUMMARY | ~2020-06-28 | XMS | Encounter Summary ---
Demographics + + + | Address | [address] | | | [place] [address] | + + + | Home Phone [...] Providers + +------+ + | Care Automatic Buffer Name | Role | Phone | + +------+ + | Allegra Chaudhary | PCP | | + +------+ + Encounter Details +--------+ + + + + | Date | Type | Department | Care Team | Description | +--------+ + + + + | 10/21/ | Telephone | [facility] | Antony Beltre, | | | 2014 | | [place] [address] [address] | [address] | | | | | [address] [place] | [place] [address] | | | | | for Health and | [phone] | | | | | [facility] [address] | | | | | | [place], [place] | | | | | | [address] | | | | | | [phone] | | | +--------+ + + + [...]
--- OUTSIDE RECORDS SUMMARY | ~2020-06-28 | XMS | Encounter Summary ---
Demographics + + + | Address | [address] | | | [place] [address] | + + + | Home Phone [...] Providers + +------+ + | Care Cold Storage Superintendent Name | Role | Phone | [...] | | [address] [facility] for | [place], [place] | | | | | Health and Healing, | [address] | | | | | | [phone] | | | | | [place], [place] | | | | | | [address] | | | | | | [phone] | | | +--------+ + + + [...]
--- OUTSIDE RECORDS SUMMARY | ~2020-06-28 | XMS | Encounter Summary ---
Demographics + + + | Address | [address] | | | [place] [address] | + + + | Home Phone [...] Team Providers + +------+ + | Care Hip Hop Dancer Name | Role | Phone | + +------+ + | Justo Vazquez MD | PCP | | + +------+ + Encounter Details +--------+ + + + + | Date | Type | Department | Care Team | Description | +--------+ + + + + | 05/05/ | Documentati | [facility] Comprehensive | Alex Sanchez, | | | 2018 | on | Pain Center at | ,PhD [address] | | | | | [facility] | [address] | | | | | [address] | [place], [place] | | | | | [place] for [facility] | [address] | | | | | and Healing, | [phone] | | | | | | | | | | | Floor [place], [place] | | | | | | [address] | | | | | | [phone] | | | +--------+ + + + [...]
--- OUTSIDE RECORDS SUMMARY | ~2020-06-28 | XMS | Encounter Summary ---
Demographics + + + | Address | [address] | | | [place] [address] | + + + | Home Phone [...] Team Providers + +------+ + | Care Pl Sql Developer Name | Role | Phone | [...] | | | | | syndrome | [facility] | [facility] | | | | | type [address] of | [address] | Rd [place], | | | | | left lower | [facility], [place] | [place] | | | | | extremity | [address] | [address] | | | | | Procedures | Phone: | Phone: | | | | | REQUEST TO | [phone] | [phone] | | | | | SURGERY | Fax: | Fax: | | | | | TRANSPORTATION AIDE | [phone] | [phone] | +--------+---------+ + + + + Reason [...] | | | | | Procedures | [place], [place] | [place], | | | | | CONSULT TO | [address] | [place] | | | | | PAIN | | [address] | | | | | MANAGEMENT | | Phone: | | | | | | | [phone] | | | | | | | Fax: | | | | | | | [phone] | +--------+--------+ + + + + Encounter Details +--------+---------+ + + + | Date | Type | Department | Care Team | Description | +--------+---------+ + + + | 10/09/ | Office | [facility] | Alex Sanchez, | Complex regional | | 2018 | Visit | Pain Center at | ,PhD [address] | pain syndrome type 1 | | | | [facility] | [facility] [address] | of left lower | | | | [address] | [place], [place] | extremity (Primary | | | | [place] for [place] [facility] | [address] | Dx) | | | | and Healing, | [phone] | | | | | | | | | | | Floor [place], [place] | | | | | | [address] | | | | | | [phone] | | | +--------+---------+ + + + [...] with an external order to see a lan specialist today. Please p resent this referral [...] insurance. PRE-PROCEDURE INSTRUCTIONS 1. Please bring a moving van driver with you as we may [...] blood thinning medications (other than aspirin), [facility] doctor who is doing your procedure will communicate with the provider who is prescribing y our anticoagulant therapy. If you do not have clear instructions on what to do with your an ticoagulant by 2 weeks before your procedure, please contact [facility] to cl arify your instructions. The phone number for questions or concerns is [phone]. documented in this encounter Progress Notes Alex [...] notes. Alex Sanchez MD,PhD [facility] Center[facility]ronically signed by Alex Sanchez MD,PhD [...] Person MD - 10/09/2018 10:00 AM PST [facility] Return Visit Date: 10/09/2018 Chief Complaint Patient presents with Back pain Low back pain Pain in left leg Knee pain Ankle pain Foot pain History of Present Illness: Tracie Farah is a 28 year old female, whose last appoi ntment at the [facility] [place] was September 28, 2018, for a clinic visit with Yun Frey NP. At that time our plans were: Recommendations/Plan: 1. Recommend to keep her appointment with Dr. Sanchez on 10/02/2018. 2. To contact the [employer] rep if she has any further question [...] She went into the emergency room in [place] where they rem cady the leads. [...] which she suspects also used dissolvable stitches. SAVE ALL OPERATOR Brief Pain Inventory: (ten= worst possible [...] 08/02/2012 [facility], Surgeon: Janak Riojas MD Cholecystectomy Appendectomy Other [...] a light load. Has been working at [employer], can' t work on [employer]. Has roommates. Allergies Allergen Reactions Morphine Anaphylaxis [...] the vein (IV) every eight hour s. 3686-6057-07 COMPOUNDED MED RX CONTROLLED (SEE ADMIN INSTRUCT [...] by physician. Concentration is 150mg/mL. Compounded by [employer] ) KETOROLAC IM Inject into the muscle [...] (IV) every twel ve hours as needed. 8286-3943-63 ONDANSETRON 4 MG DISINTEGRATING TABLET Dissolve 1 tablet in mouth every twelve hours as nee ded. PANTOPRAZOLE 40 MG TABLET,DELAYED RELEASE Take 40 mg by mouth once daily. PEG 3350-ELECTROLYTES 236 GRAM-22.74 GRAM-6.74 GRAM-5.86 GRAM SOLUTION Take as directed by [facility]- 2 gallon bowel prep [...] and summary of old medical records (source: [employer]), as summarized in the body of the [...] Key. Arben Valerio MD [facility] [address]TH [address] [facility] Mail Code: Ch15p [place] [address] [phone] signed by Alex Sanchez MD,PhD at 10/10/2018 9:27 AM [facility] umented in this encounter Plan of Treatment Not on filedocumented as of this encounter Visit Diagnoses + + | Diagnosis | + + | Complex regional pain syndrome type 1 of left lower extremity - Primary | + + documented in this encounter
--- OUTSIDE RECORDS SUMMARY | ~2020-06-28 | XMS | Encounter Summary ---
Demographics + + + | Address | [address] | | | [place] [address] | + + + | Home Phone [...] Team Providers + +------+ + | Care Vehicle Dynamics Engineer Name | Role | Phone | + +------+ + | Justo Vazquez MD | PCP | | + +------+ + Encounter Details +--------+ + + + + | Date | Type | Department | Care Team | Description | +--------+ + + + + | 05/18/ | Telephone | [facility] | Alex Sanchez, | | | 2019 | | Pain Center at | ,PhD [address] | | | | | [facility] | [address] | | | | | [address] | [place], [place] | | | | | [place] for [facility] | [address] | | | | | and Healing, | [phone] | | | | | | | | | | | Floor [place], [place] | | | | | | [address] | | | | | | [phone] | | | +--------+ + + + [...]
--- OUTSIDE RECORDS SUMMARY | ~2020-06-28 | XMS | Encounter Summary ---
Demographics + + + | Address | [address] | | | [place] [address] | + + + | Home Phone [...] Providers + +------+ + | Care Compressor Operator Adjuster Name | Role | [...]
--- OUTSIDE RECORDS SUMMARY | ~2020-06-28 | XMS | Encounter Summary ---
Demographics + + + | Address | [address] | | | [place] [address] | + + + | Home Phone [...] + +------+ + | Care Blast Furnace Checker Name | Role | Phone | + +------+ + | Justo Vazquez MD | PCP | | + +------+ + Encounter Details +--------+ + + + + | Date | Type | Department | Care Team | Description | +--------+ + + + + | 05/12/ | MyChart | [facility] at [facility] | Ewa Melchor, | RE: Schedule change | | 2017 | Encounter | [address] | CHAINSTITCH BINDER [address] | | | | | [place] for [facility] | [address] | | | | | and Healing, | [place] [address] | | | | | | [phone] | | | | | Floor [place], [place] | | | | | | [address] | | | | | | [phone] | | | +--------+ + + + [...]
--- OUTSIDE RECORDS SUMMARY | ~2020-06-28 | XMS | Encounter Summary ---
Demographics + + + | Address | [address] | | | [place] [address] | + + + | Home Phone [...] Providers + +------+ + | Care Veterinary Nurse Name | Role | Phone | + +------+ + | Justo Vazquez MD | PCP | | + +------+ + Encounter Details +--------+ + + + + | Date | Type | Department | Care Team | Description | +--------+ + + + + | 03/12/ | Telephone | [facility] | Alex Sanchez, | | | 2019 | | Pain Center at | ,PhD [address] | | | | | [facility] | [address] | | | | | [address] | [place], [place] | | | | | [place] for [facility] | [address] | | | | | and Healing, | [phone] | | | | | | | | | | | Floor [place], [place] | | | | | | [address] | | | | | | [phone] | | | +--------+ + + + [...]
--- OUTSIDE RECORDS SUMMARY | ~2020-06-28 | XMS | Encounter Summary ---
Demographics + + + | Address | [address] | | | [place] [address] | + + + | Home Phone [...] Providers + +------+ + | Care Risk Lead Name | Role | Phone | [...] | | syndrome | [place] | [facility] | | | | | type 1 of | [address] | Rd [place], | | | | | left lower | [place], [place] | [place] | | | | | extremity | [address] | [address] | | | | | Procedures | Phone: | Phone: | | | | | REQUEST TO | [phone] | [phone] | | | | | SURGERY | Fax: | Fax: | | | | | [place] NURSERY TRANSPLANTER | [phone] | [phone] | +--------+---------+ + + + + Encounter Details +--------+ + + + + | Date | Type | Department | Care Team | Description | +--------+ + + + + | 12/ | Procedure | [facility] at [facility] | Alex Sanchez, | Foot pain; Knee | | 2018 | | [address] | ,PhD [address] | pain; Procedure | | | | [facility] | [facility] | | | | | and Healing, | [place], [place] | | | | | | [address] | | | | | Floor [place], [place] | [phone] | | | | | [address] | | | | | | [phone] | | | +--------+ + + + [...] Sonia Key - 09/25/2018 1:00 PM PST [facility] Patient Instructions - Post Interventional Procedure Date: 09/25/2018 Name: Tracie Farah Date of : 1990 Procedure Performed: SCS DRG TRIAL LUMBAR [facility] Procedure Provider: Alex Sanchez MD,PhD If you have any problems you believe are associated with your procedure tonight, Please call the Hospital Planer Operator, and ask for the Pain Management [...] symptoms, dressing, SCS function, or chills. During BUILDING CONSTRUCTION CONTRACTOR open ho urs, call the [facility] ([phone]), after hours call the rivet machine operator at [facility] ([phone]) and ask for the Adult Pain Service automobile brakes bonder. Identify yourself as a [facility] [...] to the pat ient. Aleta Rebollar MD [facility] Center [id number] signed by Sonia Key at 09/25/2018 3:07 PM PST documented in this encounter Progress Notes Alex Sanchez MD,PhD - 09/25/2018 1:00 PM PSTI was present for the entire procedure ( DRG SCS trial) and all bocanegra elements of this visit. I reviewed the documentation of the othe r [facility] providers and concur with Dr. Rebollar's findings. I edited his note. Alex Sanchez MD,PhD Conditioner Tender Anesthesiology and Pain Management [facility] [place] onacZain bonner RN - 09/25/2018 1:00 PM [...] by physician. Concentration is 150mg/mL. Compounded by [employer] ) KETOROLAC IM Inject into the muscle [...] GRAM-5.86 GRAM SOLUTION Take as directed by [facility] Digestive [facility]- 2 gallon bowel prep POLYETHYLENE [...] PRE-SEDATION: Date: September 25, 2018 Tracie Farah [id number] 1990 ALLERGIES: Morphine Previous reaction to Sedation/Analgesia: [...] NOTES: Date: September 25, 2018 Tracie Donaldson [facility] [id number] 1990 ALLERGIES: Morphine Previous reaction to Sedation/Analgesia: [...] VS: See Sedation Flow Sheet. Tracie Donaldson [facility] [id number] 1990, presents to clinic for: Procedure: bilateral [...] OPERATIVE NOTE Date: September 25, 2018 Location: [facility] Procedure Room Tracie Donaldson [facility] [id number] :1990, presents to clinic for: PROCEDURE: DRG Spinal Cord Stimuation Trial with [facility]. Sprinkle system LEVEL/LATERALITY: left L4, L5 PRE-OPERATIVE DIAGNOSIS: G90.522 Complex regional pain syndrome type 1 of left lower extremity POST-OPERATIVE DIAGNOSIS: G90.522 Complex regional pain syndrome type 1 of left lower extremity ATTENDING PHYSICIAN: Alex Sanchez MD,PhD RENTAL MANAGER: Fellow Aleta Rebollar ANESTHESIA: Sedation delivered [...] sedation. Ms. Farah was escorted to the [facility] Procedure R oom, where she was [...] Ms. Farah was transported to the [facility] [place] post-procedure recovery area where she made an uneventful recovery. Programming was performed in the PACU with aid of the device medical sales representative and Ms. Susie faust was sent home with a few programs . This was a unilateral procedure. Alex Sanchez MD,PhD was present for the entire procedure. Images were saved, and sent to [employer]. Ms. Farah was transported to the [facility] [place] post-procedure recovery area. She had an uneventful recovery. Before the procedure, Ms. Farah's pain was 7/10. After the procedure Ms. Farah's pain was 7/10. I, Sonia Key, am functioning as a scribe for Aleta Rebollar MD. I have reviewed and verified the above scribed note of my visit with this patient as record ed by Sonia Key. Aleta Rebollar MD [facility] [address]TH [address] [facility] Mail Code: [address] [address] documented in t his encounter Plan of Treatment Not on filedocumented as of this encounter Procedures + +--------+ + + + | Procedure Name | Priori | Date/Time | Associated Diagnosis | Comments | | | ty | | | | + +--------+ + + + | SC MOD SEDATION | Routin | 09/25/2018 | Complex regional | | | >=5YRS SAME MD/QUAL | e | 7:31 PM | pain syndrome type 1 | | | PROV; INIT 15 MIN | | PST | of left lower | | | | | | extremity | | + +--------+ + + + | SC PERCUT IMPLNT | Routin | 09/25/2018 | [...]
--- OUTSIDE RECORDS SUMMARY | ~2020-06-28 | XMS | Encounter Summary ---
Demographics + + + | Address | [address] | | | [place] [address] | + + + | Home Phone [...] Team Providers + +------+ + | Care Mineral Ore Processing Labourer Name | Role | Phone | [...] Rd | | | | | | [place], [place] | | | | | | [address] | | | +--------+ + + + [...]
--- OUTSIDE RECORDS SUMMARY | ~2020-06-28 | XMS | Encounter Summary ---
Demographics + + + | Address | [address] | | | [place] [address] | + + + | Home Phone [...] Providers + +------+ + | Care Window Systems Administrator Name | Role | Phone | + +------+ + | Justo Vazquez MD | PCP | | + +------+ + Encounter Details +--------+ + + + + | Date | Type | Department | Care Team | Description | +--------+ + + + + | 01/06/ | Document-Tn | [facility] | Alex Sanchez, | | | 2018 | annemily | Pain Center at | ,PhD [address] | | | | | [facility] | [address] | | | | | [address] | [place], [place] | | | | | [place] for [facility] | [address] | | | | | and Healing, | [phone] | | | | | | | | | | | Floor [place], [place] | | | | | | [address] | | | | | | [phone] | | | +--------+ + + + [...]
--- OUTSIDE RECORDS SUMMARY | ~2020-06-28 | XMS | Clinical Summary ---
Demographics + + + | Address | [address] | | | [place] [address] | + + + | Home Phone [...] | Author | [facility] | + + + | Organization | [facility] | + + + | [...] Comments KEVIN is fully live on both [facility] Ambulatory and [facility] InPatient.[facility] Allergies + + [...] Noted Date | + + + | [facility] CLINICAL PROTOCOL PATIENT (PETER) - Implanted Spinal Cord | 12/14/2018 | | Stimulator | | + + + + + | Overview: Patient has an implanted [employer] spinal | | cord stimulator. Model#: [id number]. Contact [phone] for | | technical assistance.Contraindications:Sources of strong [...] | Right: | BARD | | | [id number] | | Port-10/05/2016Implanted: | | Chest | | | | 0 / | | 10/05/2016 by Obdulio Simpson, | | | | | | /VIKY | | (Quantity not on file) | | | | | | 204 | + +------+--------+ +--------+--------+--------+ + + | Description:Not Power | | Injectable, Progress record | | faxed from [facility] | | Hospital in [place], [place], | | [facility] RN | + + + +---+---+ +---+--------+--------+ | Slimtip DrgImplanted: Qty: 1 | | | [facility] | | 01/06/ | [id number] | | on 12/05/2018 by Daniel, | | | MEDICAL [place] | | 2020 | 0-50A | | Alex Alba MD,PhD at [facility] | | | | | | /[id number] | | INPATIENT REV LOC | | | | | | 371 / | + +---+---+ +---+--------+--------+ + + | Description:Level 4 | + + + +---+---+ +---+---+--------+ | Slimtip DrgImplanted: Qty: 1 | | | [facility] | | | [id number] | | on 12/05/2018 by Daniel, | | | MEDICAL [place] | | | 0-50A | | Alex Alba MD,PhD at [facility] | | | | | | /[id number] | | INPATIENT REV LOC | | [...] / | | Alex Alba MD,PhD at [facility] | | | | [...] | | | | | | | [address] | | + +--------+ +--------+ + +--------+ | TEACHER AIDE MEDICAID | TEACHER AIDE | xxxxxxxx | 11/14/19 | | | [...] | 1990 | [phone] | [place] [address] | | | evita | | | [...]
--- OUTSIDE RECORDS SUMMARY | ~2020-06-28 | XMS | Encounter Summary ---
Demographics + + + | Address | [address] | | | [place] [address] | + + + | Home Phone [...] Team Providers + +------+ + | Care Datastage Consultant Name | Role | Phone | [...] | | | | | Procedures | [place], [place] | | | | | | MR | [id number] | | | | | | ENTEROGRAPHY [...] | Office | Digestive Health | Kenny Gasapr MD | Abdominal pain, | | 2017 | Visit | Center at [facility] [address] | | unspecified location | | | | [address] [facility] | | (Primary Dx) | | | | for Health and | | | | | | Healing, Building [address] | | | | | | [place], [place] | | | | | | [address] | | | | | | [phone] | | | +--------+---------+ + + + [...] heavy metal poisoning 2) MR enterography - [phone] to schedule 3) can increase miralax to 6 times per day Return to clinic in 3 months Please feel free to call our clinic with any questions. [phone] Kenny Gaspar MD Fellow, Division of Gastroenterology [...] n their attached note. Celia Lin MD Facility Assistantgrain shoveler Division of Gastroenterology & Hepatology [facility] Kenny Dodge Md - 2016 3:15 PM PST Gastroenterology Clinic Follow-Up Note 01/11/2017 CC/ID: Tracie Farah is a 26 F PMHx depression, complex regional pain syndrome(CRPS ) here for follow-up of n/v, abdominal pain INTERVAL HISTORY: Previously seen by Dr. Carbajal 08/10/16 - 10/2015 - hospitalized at [facility] for nausea/vomiting/pain -> [facility] -> CT [...] oral recon soln Take as directed by [facility]- 2 gallon bowel prep 8000 mL [...] Note | + + | Service Account, [employer] In Interface - 02/01/2017 3:50 PM [...]
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
--- OUTSIDE RECORDS SUMMARY | ~2020-06-28 | XMS | Encounter Summary ---
Demographics + + + | Address | [address] | | | [place] [address] | + + + | Home Phone [...] Providers + +------+ + | Care Network Planner Name | Role | Phone | [...] | | | | | Procedures | [place], [place] | | | | | | MR | [id number] | | | | | | ENTEROGRAPHY [...] | | | | | Procedures | [place], [place] | | | | | | MR | [id number] | | | | | | ENTEROGRAPHY [...] | 2017 | Encounter | Services at [facility] | [address] | | | | | [address] | [place], [place] | | | | | [place] | [address] | | | | | [facility] | [phone] | | | | | [place], [place] | | | | | | [address] | | | | | | [phone] | | | +--------+ + + + [...]
--- OUTSIDE RECORDS SUMMARY | ~2020-06-28 | XMS | Encounter Summary ---
Demographics + + + | Address | [address] | | | [place] [address] | + + + | Home Phone [...] Providers + +------+ + | Care Investigation Division Captain Name | Role | Phone | [...] [address] | | | | | [address] | [place], [place] | | | | | [place] for [facility] | [address] | | | | | and Healing, | [phone] | | | | | | | | | | | Floor [place], [place] | | | | | | [address] | | | | | | [phone] | | | +--------+ + + + [...]
--- OUTSIDE RECORDS SUMMARY | ~2020-06-28 | XMS | Encounter Summary ---
Demographics + + + | Address | [address] | | | [place] [address] | + + + | Home Phone [...] Providers + +------+ + | Care Parts Designer Name | Role | Phone | [...] [place] | | 2011 | IP | [address] | | House - Approved | | | | [place]iana Maldonado [place], | | | | | | [place] [address] | | | +--------+ + + + [...]
--- OUTSIDE RECORDS SUMMARY | ~2020-06-28 | XMS | Encounter Summary ---
Demographics + + + | Address | [address] | | | [place] [address] | + + + | Home Phone [...] Providers + +------+ + | Care Utility Mechanic Name | Role | Phone | [...] + + | 01/11/ | Telephone | [facility] | Alex Sanchez, | Referral To | | 2018 | | Pain Center at | ,PhD [address] | Orthopedics (discuss | | | | [facility] | [address] | ortho appointment) | | | | [address] | [place], [place] | | | | | [facility] | [address] | | | | | and Healing, | [phone] | | | | | Building | | | | | | Floor [facility] [place] | | | | | | [address] | | | | | | [phone] | | | +--------+ + + + [...]
--- OUTSIDE RECORDS SUMMARY | ~2020-06-28 | XMS | Encounter Summary ---
Demographics + + + | Address | [address] | | | [place] [address] | + + + | Home Phone [...] Team Providers + +------+ + | Care Turkey Farmer Name | Role | Phone | [...] | Alex Alba, | [facility] [address] | | | | | regional | ,PhD [address] | Pavilion | | | | | pain | [address] | | | | | syndrome | [address] | [address], | | | | | type 1 of | Rd | Basement | | | | | left lower | [place], [place] | [place], [place] | | | | | extremity | [address] | [address] | | | | | Muscle pain | Phone: | Phone: | | | | | Procedures | [phone] | [phone] | | | | | NM BONE | Fax: | Fax: | | | | | &/OR JOINT | [phone] | [phone] | | | | | IMAGING | [...] | | | | | | NC BONE | | | | | | | IMAGING, | | | | | | | LIMITED AREA | | | | | | | NC BONE | | | | | | [...] | | 2018 | Encounter | at [facility] [address] | ,PhD [address] [facility] | | | | | [address] | [address] | | | | | [address], | [place], [place] | | | | | [facility], | [address] | | | | | [place] [address] | [phone] | | | | | [phone] | | | +--------+ + + + [...]
--- OUTSIDE RECORDS SUMMARY | ~2020-06-28 | XMS | Encounter Summary ---
Demographics + + + | Address | [address] | | | [place] [address] | + + + | Home Phone [...] Team Providers + +------+ + | Care Dot Compliance Coordinator Name | Role | Phone | [...] JAYDEN Shane | | | | | [facility] | [facility], | | | | | [address] | [place] [address] | | | | | [facility] | [phone] | | | | | and Healing, | | | | | | Building | | | | | | [place], [place] | | | | | | [address] | | | | | | [phone] | | | +--------+ + + + [...]
--- OUTSIDE RECORDS SUMMARY | ~2020-06-28 | XMS | Encounter Summary ---
Demographics + + + | Address | [address] | | | [place] [address] | + + + | Home Phone [...] Team Providers + +------+ + | Care Notch Grinder Name | Role | Phone | + +------+ + | Justo Vazquez MD | PCP | | + +------+ + Encounter Details +--------+ + + + + | Date | Type | Department | Care Team | Description | +--------+ + + + + | 08/30/ | Documentati | Pain Center at [facility] | Jamel Madden G, | | | 2018 | on | [address] | PhD [address] | | | | | Center for Health | [place], [place] | | | | | and Healing, | [address] | | | | | | [phone] | | | | | Floor [place], [place] | | | | | | [address] | | | | | | [phone] | | | +--------+ + + + [...]
--- OUTSIDE RECORDS SUMMARY | ~2020-06-28 | XMS | Encounter Summary ---
Demographics + + + | Address | [address] | | | [place] [address] | + + + | Home Phone [...] Team Providers + +------+ + | Care Patternmaker Pressure Cast Name | Role | Phone | + [...] | | | Ave Mailcode: [facility] | [place], [place] | | | | | [facility] | [address] | | | | | Health and Healing, | [phone] | | | | | [place] [address] | | | | | | [place], [place] | | | | | | [address] | | | | | | [phone] | | | +--------+ + + + [...] Discharge Instructions Instructions Darlin Doyle RN - 12/14/2016[place] Care Instructions after Colonoscopy You may resume [...] on weekends and holidays call the Hospital Glass Technician/Installer toll free [phone]- [phone] Ext. [phone] or and have the GI doctor regional operations manager paged. The provider who performed your [...] Farah is a 26 y.o. female MR# [id number] presents today for colonoscopy NPO since midnight [...]
--- OUTSIDE RECORDS SUMMARY | ~2020-06-28 | XMS | Encounter Summary ---
Demographics + + + | Address | [address] | | | [place] [address] | + + + | Home Phone [...] Team Providers + +------+ + | Care Peoplesoft Hrms Developer Name | Role | Phone | [...] | | Pain | Complex | Ilene, MANAGER DOMESTIC | Hanna M, | | | | Management | regional | [address] | PSY D [address] | | | | | pain | Ave | [address] | | | | | syndrome | [place], [place] | [place], [place] | | | | | type 1 of | [address] | [address] Phone: | | | | | left lower | Phone: | [phone] | | | | | extremity | [phone] | Fax: | | | | | Intractable | Fax: | [phone] | | | | | cyclical | [phone] | | | | | | vomiting [...] Pain Medicine | Diagnoses | Chasity, | [facility] | | | | / Pain | Abdominal | MD Kenny | [address] | | | | Management | pain, | [address] [facility] | [facility] | | | | | unspecified | [facility] | for Health | | | | | location | Rd | and Healing, | | | | | Procedures | [place], [place] | [facility] | | | | | CONSULT TO | [address] | 1,15th Floor | | | | | PAIN | | [facility] [place] | | | | | MANAGEMENT | | [address] | | | | | | | Phone: | | | | | | | [phone] | | | | | | | Fax: | | | | | | | [phone] | +--------+--------+ + + + + Encounter Details +--------+---------+ + + + | Date | Type | Department | Care Team | Description | +--------+---------+ + + + | 04/25/ | Office | [facility] | Ilene Bright, | Abdominal pain, | | 2017 | Visit | Pain Center at | MANAGER DOMESTIC [address] | unspecified location | | | | [facility] | [place], [place] | (Primary Dx); | | | | [address] | [address] | Complex regional | | | | [place] for [facility] | [phone] | pain syndrome type 1 | | | | and Healing, | | of left lower | | | | Building 1,15 | | extremity; | | | | Floor [place], [place] | | Intractable cyclical | | | | [address] | | vomiting with | | | | [phone] | | nausea; | | | | [...] encounter Patient Instructions Patient Instructions Ilene Bright, MANAGER DOMESTIC - 04/25/2017 1:35 PM PDTKelly, Nice to [...] Fibro Manual, by Freddie Guadalupe MD [email or web address] Ilnee Childs DNP, MANAGER DOMESTIC-C [facility] [address] [place] [address] documented in this encounter Progress Notes Ilene Bright FNP - 04/25/2017 1:35 PM PDTFormatting of this note might be different fr om the original. Date: 04/25/2017 was referred for pain management consultation by Kenny Gaspar MD [address] [place] [address] Reason for consult: abdominal pain Chief Complaint Patient presents with Abdominal pain Back pain History of Present Illness: Tracie Farah is a 26 year old female with a history of depression, complex regional pain syndrome (left lower extremity) for this she follows with a neurologist at [facility] in [facility]. She has been stable on her [...] (works better) Just started her on Celebrex (jail option) Intranasal ketamine Lamotrigine Memantine Ibuprofen Cymbalta 20 mg BID Cyclobenzaprine Her nonmedication treatment has not included acupuncture, etc due to limited income. She feels that the most effective treatments include: medication (toradol). lives in [place], [place] alone and with her children. She receives disability. does not have specific goals for today's appointment. [facility] QUESTIONNAIRE BRIEF PAIN 04/24/2017 Please rate [...] has interfered with your sleep : 8 [facility] New Patient Questionnaire Responses 04/24/2017 What [...] or to get rid of a hangover (eye-tig welder)? No Do you drink alcohol to decrease [...] Hemroidectomy Trial spinal cord stimulator leads 08/02/2012 [facility], Surgeon: Janak Riojas MD Cholecystectomy [...] History Social History Narrative Single. Goes to [employer] with a light load. Has been working at [employer], can' t work on [employer]. Has roommates. Allergies Allergen Reactions Morphine Anaphylaxis [...] by physician. Concentration is 150mg/mL. Compounded by [email or web address] ) LAMOTRIGINE 200 MG TABLET Take [...] ENTEROGRAPHY ABDOMEN AND PELVIS WWO CONTRAST Order: [id number] Performed: 01/31/2017 4:34 PM Status: Final result [...] 3:50 PM X-RAY ABDOMEN 1 VIEW Order: [id number] Performed: 03/19/2017 6:52 AM Status: Final result [...] and summary of old medical records (source: [employer]), as summarized in the body of [...] possible opioid-sparing effects (Stevie Paulino et al.C [place], (8):1655-70, 2007) and evidence that it can [...] TERESA-C [facility] [address] [place] [address] Display Progress Note in MyChart: No documented [...]
--- OUTSIDE RECORDS SUMMARY | ~2020-06-28 | XMS | Encounter Summary ---
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 | | | | Therapy | CRPS | Janak Martinez MD | [address] [address] | | | | | (complex | [address] | | | | | regional | [address] | Mailcode: | | | | | pain | Mailstop | [facility] | | | | | syndrome), | [address] | for Health | | | | | lower limb | [place], [place] | and Healing, | | | | | Gait | [address] | Building 1 | | | | | disturbance | Phone: | [place], [place] | | | | | Muscle pain | [phone] | [address] | | | | | Procedures | Fax: | Phone: | | | | | PHYSICAL | [phone] | [phone] | | | | | THERAPY | [...] | [facility] | [place] [address] | syndrome), lower | | | | [address] | [phone] | limb (Primary Dx) | | | | [facility] | | | | | | and Healing, | Specialist, Edu | | | | | Building 1, 1st | Exercise [address] | | | | | Floor [place], [place] | [address] [place], | | | | | [address] | [place] [address] | | | | | [phone] | | | +--------+---------+ + + + [...] might be different f rom the original. [id number] BRODY FARAH Date of : 1990 Start of care: 02/14/2012 Date of onset: 02/14/2012 Referring/Attending Practitioner: Janak Riojas MD . Primary/Referral Diagnosis/ICD-9: 355.71B CRPS (complex regional pain syndrome), lower limb Insurance: Payor: [facility] Plan: BCBS OUT OF STATE Product Type: [...] [facility] Outpatient Rehabilitation Services Mailcode: Ch3p [address] [facility], [address] [place] [address] documented in this encounter Plan of Treatment Not on filedocumented as of this encounter Procedures + +--------+ + + + | Procedure Name | Priori | Date/Time | Associated Diagnosis | Comments | | | ty | | | | + +--------+ + + + | NM THERAPEUTIC | Routin | 05/24/2012 | CRPS (complex | | | EXERCISES | e | 6:23 PM | regional pain | | | | | PDT | syndrome), lower | | | | | | limb | | + +--------+ + + + | NM THERAPEUTIC | Routin | 05/24/2012 | CRPS [...]
--- OUTSIDE RECORDS SUMMARY | ~2020-06-28 | XMS | Encounter Summary ---
Demographics + + + | Address | [address] | | | [place] [address] | + + + | Home Phone [...] Providers + +------+ + | Care Survey Coordinator Name | Role | Phone | [...] | | pain | [address] | [place], [place] | | | | | syndrome | [place], [place] | [address] | | | | | type 1 of | [address] | Phone: | | | | | left lower | Phone: | [phone] | | | | | extremity | [phone] | Fax: | | | | | Midline low | Fax: | [phone] | | | | | back pain | [phone] | | | | | | without [...] | | | | | | [place], [place] | [facility] [place] | | | | | | [address] | [address] | | | | | | Phone: | Phone: | | | | | | [phone] | [phone] | | | | | | Fax: | Fax: | | | | | | [phone] | [phone] | +--------+---------+ + + + + Encounter Details +--------+---------+ + + + | Date | Type | Department | Care Team | Description | +--------+---------+ + + + | 07/04/ | Office | [facility] Comprehensive | Lane Reyes, | Complex regional | | 2019 | Visit | Pain Center at | [place] [address] | pain syndrome type 1 | | | | [place] | [place], [place] | of left lower | | | | [address] | [address] | extremity (Primary | | | | Center for [facility] | [phone] | Dx); Midline low | | | | and Healing, | | back pain without | | | | Building | | sciatica, | | | | Floor [place], [place] | | unspecified | | | | [address] | | chronicity; | | | | [phone] | | Sacroiliac pain; | | | [...] and help in coping with the pain. ADMINISTRATIVE RESIDENT Brief Pain Inventory: (ten= worst possible pain [...] Trial spinal cord stimulator leads 08/02/2012 [facility], Surgeon: Janak Riojas MD Cholecystectomy Appendectomy [...] a light load. Has been working at [employer], can' t work on [employer]. Has roommates. Allergies Allergen Reactions Morphine Anaphylaxis [...] by [facility]- 2 gallon bowel prep POLYETHYLENE GLYCOL 3350 17 GRAM/DOSE ORAL POWDER Take 17 g by mouth once daily. PROMETHAZINE 12.5 MG TABLET Take 1 tablet by mouth four times daily as needed for nausea/vo miting. SUCRALFATE 1 GRAM TABLET Take 1 g by mouth four times daily. Radiology/Diagnostic Tests: X-RAY SPINE CERV 4 VIEWS Order: [id number] Performed: 06/12/2018 11:40 Status: Final result Visible [...] that the treatment performed by the chiropractic automotive internet sales consultant, Niesha Reveles, was directly observed by myself the primary chiropractor Lane Reyes [place] Visit Diagnoses: ICD-10-CM 1. Complex regional pain syndrome type 1 of left lower extremity G90.522 CONSULT TO PAIN [facility] 2. Midline low back pain without sciatica, unspecified chronicity M54.5 CONSULT TO PAIN [facility] 3. Sacroiliac pain M53.3 CONSULT TO [...] verified the above note written by Chiropractic automotive internet sales consultant of our visit wit h this patient as recorded by Lane Reyes [place] [facility] AT [address] Mail Code: Ch15p [place] [address] documented in this e ncounter [...]
--- OUTSIDE RECORDS SUMMARY | ~2020-06-28 | XMS | Encounter Summary ---
Demographics + + + | Address | [address] | | | [place] [address] | + + + | Home Phone [...] Team Providers + +------+ + | Care Telecommunications Facility Examiner Name | Role | Phone | [...] + + | 02/21/ | Telephone | [facility] | Alex Sanchez, | Medication Refill | | 2018 | | Pain Center at | ,PhD [address] | Request (ketamine- | | | | [facility] [facility] | [address] | mail script to | | | | [address] | [place], [place] | patient) | | | | [facility] | [address] | | | | | and Healing, | [phone] | | | | | | | | | | | Floor [place], [place] | | | | | | [address] | | | | | | [phone] | | | +--------+ + + + [...]
--- OUTSIDE RECORDS SUMMARY | ~2020-06-28 | XMS | Encounter Summary ---
Demographics + + + | Address | [address] | | | [place] [address] | + + + | Home Phone [...] Providers + +------+ + | Care Director Chemistry Name | Role | Phone | + [...] | | | regional | [place] | [address] | | | | | pain | FAMILY | [address]stop | | | | | syndrome), | MEDICINE P | [address] | | | | | lower limb | [address] | [place], [place] | | | | | Gait | [place], | [address] | | | | | disturbance | [place] [address] | Phone: | | | | | Muscle pain | Phone: | [phone] | | | | | Procedures | [phone] | Fax: | | | | | REQUEST TO | Fax: | [phone] | | | | | SURGERY | [phone] | | | | | | 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 MADE 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 | | | +--------+--------+ + + + + Encounter Details +--------+ + + + + | Date | Type | Department | Care Team | Description | +--------+ + + + + | 03/01/ | Procedure | [facility] | Dale Cantu, | Foot pain (left); | | 2011 | | [address] | [address] | Procedure | | | | Center for Health | [address] [address] | | | | | and Healing, | [place], [place] | | | | | [facility] | [address] | | | | | Floor [place], [place] | [phone] | | | | | [address] | | | | | | [phone] | | | +--------+ + + + [...] migh t be different from the original. [facility] Patient Instructions - Post Interventional Procedure Date: 03/01/2012 Name: Traice Farah Date of : 1990 Procedure Performed: LUMBAR SYMPATHETIC BLOCK. Procedure Provider: Dale Cantu If you have any problems you believe are associated with your procedure tonight, Please call the Hospital Laser Engraver, and ask for the Pain Management Consu ltant. If you have problems or questions between 9:00 am and 4:00 pm, Please call the [facility] Nurse Triage Line, . If [...] the larry ent. LAKEISHA HERRING MD [facility] documented in this encounter Progress Notes Dale Cantu MD - 03/01/2012 2:21 PM PDTI was present for the entire procedure (lumbar sympathetic block) and all bocanegra elements of this visit. I reviewed the documentation of the other WATCHMAKER APPRENTICE providers and concur with Dr. Herring's findings. [...] benefit from multidisciplinary treatment. DALE CANTU MD Engineer Assistant, [facility] Magazine Worker, Pain Medicine Professor, Anesthesiology & Perioperative Medicine NAEiDiana scott RN - 03/01/2012 1:35 PM PDT PRE-SEDATION: Date: March 01, 2012 Tracie Farah [id number] 1990 ALLERGIES: Morphine Previous reaction to Sedation/Analgesia: MEDICATIONS: Current Outpatient Prescriptions Medication DULoxetine (CYMBALTA) 30 mg Oral Capsule, Delayed Release(E.C.) HYDROcodone-acetaminophen (NORCO) 10-325 mg Oral Tablet levonorgestrel (MIRENA) 20 mcg/24 hr Intrauterine IUD LORazepam 1 mg Oral Tablet promethazine 25 mg Oral Tablet Meets NPO Guidelines. IV ACCESS: IV in Place IV Start Time 06195, 22g, DRH BASELINE VS: See Sedation Flow Sheet. Tracie Farah [id number] 1990, presents to clinic for: Procedure: Lumbar [...] ml. 1344: Procedure complete. Pt returned to azle 1 per man in stable condiotion. IV [...] OPERATIVE NOTE Date: March 01, 2012 Location: [facility] Procedure Room Tracie Donal[facility] [id number] :1990, presents to clinic for: PROCEDURE: Lumbar sympathetic block LEVEL/LATERALITY: left L3 PRE-OPERATIVE DIAGNOSIS: 355.71B CRPS (complex regional pain syndrome), lower limb 719.46 Pain in joint, lower leg POST-OPERATIVE DIAGNOSIS: 355.71B CRPS (complex regional pain syndrome), lower limb 719.46 Pain in joint, lower leg ATTENDING PHYSICIAN: Dale Cantu BUILDING MAINTENANCE TECHNICIAN: Fellow Lakeisha Herring MD ANESTHESIA: sedation delivered [...] sedation. Ms. Farah was escorted to the [facility] Procedure Ro om, where she was positioned [...] compromise. Ms. Farah was transported to the [facility] Comprehensive Pain Center post-procedure [...] block. Images were saved, and sent to [facility]. Ms. Farah will have her next appointment [...] + +--------+ + + + | SD INJECT NERV | Routin | 03/01/2012 | CRPS (complex | | | BLCK,PARAVERT | e | 2:20 PM | regional pain | | | SYMPATH | | PDT | syndrome), lower | | | | | | limb Pain in joint, | | | | | | lower leg | | + +--------+ + + + | SD LOCM 100-199 | Routin | 03/01/2012 | CRPS (complex | | | MG/MLICON | e | 1:53 PM | regional pain | | | | | PDT | syndrome), lower | | | | | | limb Pain in joint, | | | | | | lower leg | | + +--------+ + + + | SD INJ BUPIVACAINE | Routin | 03/01/2012 | [...]
--- OUTSIDE RECORDS SUMMARY | ~2020-06-28 | XMS | Encounter Summary ---
Demographics + + + | Address | [address] | | | [place] [address] | + + + | Home Phone [...] Providers + +------+ + | Care Quarter Lining Smoother Name | Role | Phone | + +------+ + | Justo Vazquez MD | PCP | | + +------+ + Encounter Details +--------+ + + + + | Date | Type | Department | Care Team | Description | +--------+ + + + + | 01/09/ | Documentati | Orthopaedics | Ranjeet Amanda, | | | 2018 | on | Faculty at [place] | [address] | | | | | for Health and | [place], [place] | | | | | Healing [address] | [address] | | | | | Ave [place] for | [phone] | | | | | Health and Healing, | | | | | | | | | | | | Floor [facility] [place] | | | | | | [address] | | | | | | [phone] | | | +--------+ + + + [...]
--- OUTSIDE RECORDS SUMMARY | ~2020-06-28 | XMS | Encounter Summary ---
Demographics + + + | Address | [address] | | | [place] [address] | + + + | Home Phone [...] Team Providers + +------+ + | Care Independent Living Instructor Name | Role | Phone | + +------+ + | Justo Vazquez MD | PCP | | + +------+ + Encounter Details +--------+ + + + + | Date | Type | Department | Care Team | Description | +--------+ + + + + | 01/26/ | Document-Sc | Health Information | Unknown . | | | 2017 | anned | Services [address] | | | | | [address] | | | | | | Mailcode: OP17A | | | | | | [facility] | | | | | | [place], [place] | | | | | | [address] | | | | | | [phone] | | | +--------+ + + + [...]
--- OUTSIDE RECORDS SUMMARY | ~2020-06-28 | XMS | Encounter Summary ---
Demographics + + + | Address | [address] | | | [place] [address] | + + + | Home Phone [...] Providers + +------+ + | Care Textile Dyer Name | Role | Phone | [...]
--- OUTSIDE RECORDS SUMMARY | ~2020-06-28 | XMS | Encounter Summary ---
Demographics + + + | Address | [address] | | | [place] [address] | + + + | Home Phone [...] Team Providers + +------+ + | Care Silo Painter Name | Role | Phone | [...] | | | | Procedures | [place] ACS[place] | [facility], | | | | | CONSULT TO | [address] | [place] | | | | | PAIN | | [address] | | | | | MANAGEMENT | | Phone: | | | | | | | [phone] | | | | | | | Fax: | | | | | | | [phone] | +--------+--------+ + + + + Encounter Details +--------+---------+ + + + | Date | Type | Department | Care Team | Description | +--------+---------+ + + + | 04/23/ | Office | [facility] Center at [facility] | Alex Sanchez, | Complex regional | | 2019 | Visit | [address] | ,PhD [address] [facility] | pain syndrome type 1 | | | | Center for [facility] | [address] | of left lower | | | | and Healing, | [place], [place] | extremity (Primary | | | | Building | [address] | Dx); Other chronic | | | | Floor [place], [place] | [phone] | pain ; S/P insertion | | | | [address] | | of spinal cord | | | | [phone] | | stimulator | +--------+---------+ + + [...] the time to see us in the [facility]. It was great to s ee you. Below is a summary of the discussion that we had today: - I will provide you with a prescription for oxycodone to use only for your monthly pain fl garo. - We reviewed and signed an opioid agreement today. - Please visit the lab on the 1st floor of [facility] to provide a urine sample for [...] fox in our notes. Alex Sanchez MD,PhD [facility] signed by Alex Sanchez MD,PhD at 04/14 [...] Aleta Lam MD - 1:00 PM PDT [facility] Return Visit Date: 04/23/2019 Chief Complaint Patient presents with Pain in left leg from the knee downl Back pain where battery pack is located History of Present Illness: Tracie Farah is a 28 year old female, whose last appoi ntment at the [facility] was December 22, 2018, [...] - DRG Spinal cord stimulator trial with Odyssey Thera system (09/25/2018) with 30-40% im provement of typical pain with significant improvement in mobility and function - Left popliteal/sciatic nerve injection AND abdominal scar trigger point injection ( 018) - Spinal cord stimulator trial with Odyssey Thera system by Janak Riojas MD (08/02/2012) - [...] Hemroidectomy Trial spinal cord stimulator leads 08/02/2012 [employer]sey Thera, Surgeon: Janak Riojas MD Cholecystectomy Appendectomy Other [...] History Social History Narrative Single. Goes to [employer] with a light load. Has been working at [employer], can' t work on [employer]. Has roommates. Allergies Allergen Reactions Morphine Anaphylaxis [...] with nausea Abdominal pain Abdominal scar neuroma [facility] PROTOCOL PATIENT (CLNPRO) - Implanted [...] and summary of old medical records (source: [employer]), as summarized in the body of the [...] We performed DRG SCS trial with the [facility] System on 09/25/2018 which provided her with [...] ago. She has not spoken with the [employer] representatives about this. I encouraged her to [...] Key. Aleta Rebollar MD [facility] 15TH FLOOR [address] [facility] Mail Code: Ch15[place] [id number] do cumented in this encounter Plan of [...] + + + + + | [facility] | [address] | [place] [address] | | | SERVICES, CORE | GUILLERMO [...]
--- OUTSIDE RECORDS SUMMARY | ~2020-06-28 | XMS | Encounter Summary ---
Demographics + + + | Address | [address] | | | [place] [address] | + + + | Home Phone [...] Team Providers + +------+ + | Care Sponsorship Manager Name | Role | Phone | [...] | | syndrome), | MEDICINE P | [address] | | | | | lower limb | [address] | [place], [place] | | | | | Gait | [place], | [address] | | | | | disturbance | [place] [address] | Phone: | | | | | Muscle pain | Phone: | [phone] | | | | | Procedures | [phone] | Fax: | | | | | REQUEST TO | Fax: | [phone] | | | | | SURGERY | [phone] | | | | | | LOAN SPECIALIST | | | +--------+--------+ + + + + Encounter Details +--------+ + + + + | Date | Type | Department | Care Team | Description | +--------+ + + + + | 03/01/ | Procedure | [facility] | Dale Cantu, | Foot pain (left); | | 2011 | | [address] | [address] | Procedure | | | | Center for Health | [address] | | | | | and Healing, | [place], [place] | | | | | [facility] | [address] | | | | | Floor [place], [place] | [phone] | | | | | [address] | | | | | | [phone] | | | +--------+ + + + [...] your procedure tonight, Please call the Hospital Low Pressure Kettle Operator, and ask for the Pain Management [...] to the larry ent. LAKEISHA HERRING MD [facility] documented in this encounter Progress Notes Dale Cantu MD - 03/01/2012 2:21 PM PDTI was present for the entire procedure (lumbar sympathetic block) and all bocanegra elements of this visit. I reviewed the documentation of the other CHIEF SUPPLY CHAIN OFFICER providers and concur with Dr. Herring's findings. [...] benefit from multidisciplinary treatment. DALE CANTU MD Well Drill Operator Rotary Drill, [facility] Varnisher Apprentice, Pain Medicine Professor, Anesthesiology & Perioperative Medicine NAEiDiana scott RN - 03/01/2012 1:35 PM PDT PRE-SEDATION: Date: March 01, 2012 Tracie Farah [id number] 1990 ALLERGIES: Morphine Previous reaction to Sedation/Analgesia: MEDICATIONS: Current Outpatient Prescriptions Medication DULoxetine (CYMBALTA) 30 mg Oral Capsule, Delayed Release(E.C.) HYDROcodone-acetaminophen (NORCO) 10-325 mg Oral Tablet levonorgestrel (MIRENA) 20 mcg/24 hr Intrauterine IUD LORazepam 1 mg Oral Tablet promethazine 25 mg Oral Tablet Meets NPO Guidelines. IV ACCESS: IV in Place IV Start Time 83716, 22g, DRH BASELINE VS: See Sedation Flow Sheet. Tracie Farah [id number] 1990, presents to clinic for: Procedure: Lumbar [...] ml. 1344: Procedure complete. Pt returned to [place] 1 per man in stable condiotion. IV [...] OPERATIVE NOTE Date: March 01, 2012 Location: [facility] Procedure Room Tracie Donaldson [facility] [id number] :1990, presents to clinic for: PROCEDURE: Lumbar sympathetic block LEVEL/LATERALITY: left L3 PRE-OPERATIVE DIAGNOSIS: 355.71B CRPS (complex regional pain syndrome), lower limb 719.46 Pain in joint, lower leg POST-OPERATIVE DIAGNOSIS: 355.71B CRPS (complex regional pain syndrome), lower limb 719.46 Pain in joint, lower leg ATTENDING PHYSICIAN: Dale Cantu SUPERVISOR CRACK OFF: Fellow Lakeisha Herring MD ANESTHESIA: sedation delivered [...] sedation. Ms. Farah was escorted to the [facility] Procedure Ro om, where she was [...] compromise. Ms. Farah was transported to the [place] [...] block. Images were saved, and sent to [employer]. Ms. Farah will have her next appointment [...] + +--------+ + + + | TN INJECT NERV | Routin | 03/01/2012 | CRPS (complex | | | BLCK,PARAVERT | e | 2:20 PM | regional pain | | | SYMPATH | | PDT | syndrome), lower | | | | | | limb Pain in joint, | | | | | | lower leg | | + +--------+ + + + | TN LOCM 100-199 | Routin | 03/01/2012 | CRPS (complex | | | MG/MLICON | e | 1:53 PM | regional pain | | | | | PDT | syndrome), lower | | | | | | limb Pain in joint, | | | | | | lower leg | | + +--------+ + + + | TN INJ BUPIVACAINE | Routin | 03/01/2012 | [...]
--- OUTSIDE RECORDS SUMMARY | ~2020-06-28 | XMS | Encounter Summary ---
Demographics + + + | Address | [address] | | | [place] [address] | + + + | Home Phone [...] Providers + +------+ + | Care Java J2Ee Lead Name | Role | Phone | [...] Center at [facility] [address] | | Review | | | | S [facility] | | | | | | for Health and | | | | | | [facility], [facility] [address] | | | | | | [place], [place] | | | | | | [address] | | | | | | [phone] | | | +--------+ + + + [...]
--- OUTSIDE RECORDS SUMMARY | ~2020-06-28 | XMS | Encounter Summary ---
Demographics + + + | Address | [address] | | | [place] [address] | + + + | Home Phone [...] Providers + +------+ + | Care Digital Publishing Specialist Name | Role | Phone [...] | | Complex | Alex Alba, | [facility] [address] | | | | | regional | ,PhD [address] | Pavilion | | | | | pain | [address] | [address] | | | | | syndrome | [address] | [address], | | | | | type 1 of | Rd | Basement | | | | | left lower | [place], [place] | [place], [place] | | | | | extremity | [address] | [address] | | | | | Muscle pain | Phone: | Phone: | | | | | Procedures | [phone] | [phone] | | | | | NM BONE | Fax: | Fax: | | | | | &/OR JOINT | [phone] | [phone] | | | | | IMAGING | [...] + + | 12/27/ | Ancillary | [facility] Comprehensive | Alex Sanchez, | | | 2018 | Orders | Pain Center at | ,PhD [address] [facility] | | | | | [facility] | [address] | | | | | [address] | [place], [place] | | | | | [facility] | [address] | | | | | and Martina, | [phone] | | | | | [facility] | | | | | | Floor [place], [place] | | | | | | [address] | | | | | | [phone] | | | +--------+ + + + [...] Note | + + | Service Account, SAW Instrument Res In Interface - 12/28/2017 11:43 AM [...]
--- OUTSIDE RECORDS SUMMARY | ~2020-06-28 | XMS | Encounter Summary ---
Demographics + + + | Address | [address] | | | [place] [address] | + + + | Home Phone [...] Providers + +------+ + | Care Test Desk Supervisor Name | Role | Phone | [...] | | Pain | Complex | Ilene, MECHANICAL ENGINEERING LECTURER | Catriona M, | | | | Management | regional | [address] | PSY D [address] | | | | | pain | [address] | [address] | | | | | syndrome | [place], [place] | [place], [place] | | | | | type 1 of | [address] | [address] Phone: | | | | | left lower | Phone: | [phone] | | | | | extremity | [phone] | Fax: | | | | | Intractable | Fax: | [phone] | | | | | cyclical | [phone] | | | | | | vomiting [...] 10/11/ | Office | [facility] at [facility] | Jamel Bravo, | 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 The patient was referred for pain [...] by physician. Concentration is 150mg/mL. Compounded by [employer] ([phone]), Disp: , Rfl: 5 lamoTRIgine 200 mg [...] recon soln, Take as directed by [facility]- 2 gallon bowel prep, Disp: [...] e. She reported doing some of the health sciences manager. For enjoyment the patient watches TV, reads, [...] time I spent was approximately 50 minutes hrow-zw-xsbs with the patient and approxima tely 1 hour 40 minutes of cmt-gndq-sn-face testing, interpreting and synthesizing results. Jamel Bravo, PhD [facility] 15TH FLOOR [address] [facility] Mail Code: [place]15[place] [address] documented in this en counter [...]
--- OUTSIDE RECORDS SUMMARY | ~2020-06-28 | XMS | Encounter Summary ---
Demographics + + + | Address | [address] | | | [place] [address] | + + + | Home Phone [...] Providers + +------+ + | Care Public Works Supervisor Name | Role | Phone | + +------+ + | Justo Vazquez MD | PCP | | + +------+ + Encounter Details +--------+ + + + + | Date | Type | Department | Care Team | Description | +--------+ + + + + | 06/04/ | Documentati | [facility] Comprehensive | Alex Sanchez, | | | 2019 | on | Pain Center at | ,PhD [address] | | | | | [facility] | [address] | | | | | [address] | [place], [place] | | | | | [place] [facility] | [address] | | | | | and Healing, | [phone] | | | | | | | | | | | Floor [place], [place] | | | | | | [address] | | | | | | [phone] | | | +--------+ + + + [...]
--- OUTSIDE RECORDS SUMMARY | ~2020-06-28 | XMS | Encounter Summary ---
Demographics + + + | Address | [address] | | | [place] [address] | + + + | Home Phone [...] Team Providers + +------+ + | Care Forklift Mechanic Name | Role | Phone | [...] | | [facility] | [facility], | | | | | [address] | [place] [address] | | | | | [facility] | [phone] | | | | | and Healing, | | | | | | [facility] | | | | | | [place], [place] | | | | | | [address] | | | | | | [phone] | | | +--------+ + + + [...]
--- OUTSIDE RECORDS SUMMARY | ~2020-06-28 | XMS | Encounter Summary ---
Demographics + + + | Address | [address] | | | [place] [address] | + + + | Home Phone [...] Providers + +------+ + | Care Sales Office Administrator Name | Role | Phone | [...] CRPS | Janak Martinez MD | Chh[facility] [address] | | | | Management | (complex | [address] | | | | | regional | [address] | Center for | | | | | pain | [address] | Health and | | | | | syndrome), | [id number] | Healing, | | | | | lower limb | [place], [place] | Building | | | | | Gait | [address] | 1,15th Floor | | | | | disturbance | Phone: | [place], [place] | | | | | Muscle pain | [phone] | [address] | | | | | Procedures | Fax: | Phone: | | | | | CONSULT TO | [phone] | [phone] | | | | | PAIN CENTER | | Fax: | | | | | | | [phone] | +--------+--------+ + + + + Encounter Details +--------+---------+ + + + | Date | Type | Department | Care Team | Description | +--------+---------+ + + + | 03/20/ | Office | [facility] Center at [facility] | Shelia Feldman, PhD | Unspecified | | 2011 | Visit | [address] | | adjustment reaction | | | | Center for Health | | (Primary Dx) | | | | and Healing, | | | | | | Building | | | | | | Floor [place], [place] | | | | | | [address] | | | | | | [phone] | | | +--------+---------+ + + + [...] [facility] Name: Tracie Farah MR#: [id number] Date of : 1990 Date: March 20, 2012 Attending Psychologist: SHELIA FELDMAN, PHD CPT: 62111 Duration: 60min Psych: 309.0 Pain: 355.71 Tracie arrived on time for today's appointment, casually dressed and neatly groomed. Affect was appropriate, mood normothymic. She drove herself today and used crutches. She stated t hat she was doing "better", mainly because she has returned to work at [employer]. She is wo rking about [...] discretion, not currently planned. SHELIA FELDMAN, PHD Public Health Analyst Licensed Clinical Psychologist [facility] Department of Anesthesiology & Perioperative Medicine [facility] [address] [place], [place] [id number] Historical Information: Introduction: Tracie Farah is a 21-year-old woman with >5 year hx of CRPS, R LE.S ocial & Psychiatric History: Tracie Farah lives in [place] in a shared apartment space. She has struggled wi th CRPS for at least 5 years; original injury to her foot was in 2001. In summer 2010 she h ad inpt pain tx at [facility] with limited penitentiary benefit. Recent flare; she [...] Travel is a barrier; she lives in [place] DSM-IV Diagnoses/Impressions: Bryan I: 1. 309.9 Unspecified Adjustment Reaction 2. 780.50 Sleep Disturbance Bryan II: Deferred. Bryan III: Patient Active Problem List Diagnoses CRPS (complex regional pain syndrome), lower limb Gait disturbance Muscle pain Adjustment reaction Bryan IV: CRPS pain, pain related debility;difficulty attending class, working; family stres s; stalker ex-bf Bryan V: Global Assessment of Functioning = 75 [...] me should questions arise. SHELIA FELDMAN, PHD Public Health Analyst Licensed Clinical Psychologist [facility] Department of Anesthesiology & Perioperative Medicine [facility] [address] [place] [address] documented in this enc ounter Plan of Treatment Not on filedocumented as of this encounter Visit Diagnoses + + | Diagnosis | + + | Unspecified adjustment reaction - Primary | + + documented in this encounter
--- OUTSIDE RECORDS SUMMARY | ~2020-06-28 | XMS | Encounter Summary ---
Demographics + + + | Address | [address] | | | [place] [address] | + + + | Home Phone [...] + +------+ + | Care Diesel Maintenance Technician Name | Role | Phone [...] 2016 | | Pain Center at | AWNING CRAFTSMAN [address] | | | | | [facility] | [place], [place] | | | | | [address] | [address] | | | | | [facility] | [phone] | | | | | and Healing, | | | | | | [facility] | | | | | | [place], [place] | | | | | | [address] | | | | | | [phone] | | | +--------+ + + + [...]
--- OUTSIDE RECORDS SUMMARY | ~2020-06-28 | XMS | Encounter Summary ---
Demographics + + + | Address | [address] | | | [place] [address] | + + + | Home Phone [...] Team Providers + +------+ + | Care Postulant Name | Role | Phone | + [...] Rd | | | | | | [place], [place] | | | | | | [address] | | | +--------+ + + + [...]
--- OUTSIDE RECORDS SUMMARY | ~2020-06-28 | XMS | Encounter Summary ---
Demographics + + + | Address | [address] | | | [place] [address] | + + + | Home Phone [...] Organization | [facility] | | | and [place] [...] [place] | | | | | [address] | | + + + + + | Bryant Farah | ECON | Unknown | | + + + + + Care Team Providers + +------+ + | Care Graphic Editor Name | Role | Phone | + +------+ + PCP | Unavailable | + +------+ + Encounter Details +--------+ + + + + | Date | Type | Department | Care Team | Description | +--------+ + + + + | 03/16/ | Hospital | [facility] | Conversion | Back pain | | 2013 | Encounter | CONVERSION [address] | Transaction, | | | | | [address] | Provider Unknown | | | | | [place], [place] | [phone] | | | | | [address] | | | | | | [phone] | | | +--------+ + + + [...]
--- OUTSIDE RECORDS SUMMARY | ~2020-06-28 | XMS | Encounter Summary ---
Demographics + + + | Address | [address] | | | [place] [address] | + + + | Home Phone [...] Providers + +------+ + | Care Program Paraprofessional Name | Role | Phone | + [...] | | | Spasticity | Ave | [facility] [place] | | | | | Procedures | [facility] [place] | [address] | | | | | CONSULT TO | [address] | Phone: | | | | | PAIN | Phone: | [phone] | | | | | MANAGEMENT | [phone] | Fax: | | | | | | Fax: | [phone] | | | | | | [phone] | | +--------+---------+ + + + + [...] | | MD Celia | MD Brendan [address] | | | | | Fibromyalgia | [address] | [address] | | | | | Spasticity | Ave | [address] | | | | | Epigastric | [place], [place] | Rd [place], | | | | | pain | [address] | [place] | | | | | Procedures | Phone: | [address] | | | | | REQUEST TO | [phone] | Phone: | | | | | SURGERY | Fax: | [phone] | | | | | CREDIT RISK OFFICER | [phone] | Fax: | | | | | NM INJECT | | [phone] | | | | | TRIGGER | | | | | | | POINT, 1 [place] | | | | | | | 2 NM INJECT | | | | | | [...] Pain Medicine | Diagnoses | Chasity, | Stair Builder Chh1 | | | | / Pain | Abdominal | MD Kenny | [address] | | | | Management | pain, | [address] | Ave Center | | | | | unspecified | [facility] | for Health | | | | | location | Rd | and Healing, | | | | | Procedures | [place], [place] | Building | | | | | CONSULT TO | [address] | 1,15th Floor | | | | | PAIN | | [place], [place] | | | | | MANAGEMENT | | [address] | | | | | | | Phone: | | | | | | | [phone] | | | | | | | Fax: | | | | | | | [phone] | +--------+--------+ + + + + Encounter Details +--------+---------+ + + + | Date | Type | Department | Care Team | Description | +--------+---------+ + + + | 10/11/ | Office | [facility] Comprehensive | Vern Robertson, | Epigastric pain | | 2017 | Visit | Pain Center at | CASE INVESTIGATOR [address] | (Primary Dx); | | | | [facility] | [place], [place] | Spasticity | | | | [address] | [address] | | | | | [place] [facility] | [phone] | | | | | and Healing, | | | | | | Building | | | | | | Floor [place], [place] | | | | | | [address] | | | | | | [phone] | | | +--------+---------+ + + + [...] true warrior! * Please sign up for [employer]. This is the best way to communicate with me. It will save you time in the long run. The procedure you discussed with your doctor is called: Trigger point injection of abdomina l scar. Please make sure this is scheduled with the [facility]. PRE-PROCEDURE INSTRUCTIONS 1. Please bring a motor pool driver with you as we may give you medications that impair your ability to drive. This is necessary even if you do not receive sedation. You may take a taxi or ri [employer] if you are accompanied by a [...] phone number for questions or concerns is [phone]. * Consider Lidoderm topical or compound prescription [...] muscle hyper tonicity. * Consider increasing your Llano 3 fats. Llano-3 fats are precursors to mediators of inflammation [...] oil if approved by your PCP or non profit job titles. * Eliminate High Fructose [place] Syrup and Sugar from your diet as [...] treatment plan. * Follow up with [facility] Comprehensive Pain Center as needed. [...] at the [facility] [place] was 07/11/17 with TERESA Clark, for a [...] tests conducted at [facility] in [place], [place] including barium swallow and Hydrogen breath [...] Torodol shots: only form of symptom relief. DOCUMENT REVIEW SPECIALIST Brief Pain Inventory: (ten= worst possible [...] Trial spinal cord stimulator leads 08/02/2012 [facility], Surgeon: Janak Riojas MD Cholecystectomy [...] History Social History Narrative Single. Goes to [employer] with a light load. Has been working at [employer], can' t work on [employer]. Has roommates. Allergies Allergen Reactions Morphine Anaphylaxis [...] by physician. Concentration is 150mg/mL. Compounded by [facility] ) LAMOTRIGINE 200 MG TABLET Take [...] directed by [facility] Digestive [facility]- [...] reviewed. - Review old medical records (from [facility]). Pertinent findings include: abdominal surger y [...] treatment plan. * Follow up with [facility] Comprehensive Pain Center as needed. IGuillermo am scribing for Vern Robertson NP on 10/11/2017 I have reviewed and verified the above scribed note of my visit with this patient as record ed by Guillermo Hope. Vern Robertson NP [facility] 15TH FLOOR [address] Mail Code: Ch15p [place] [address] documented in this e ncounter Plan of Treatment Not on filedocumented as of this encounter Visit Diagnoses + + | Diagnosis | + + | Epigastric pain - Primary Abdominal pain, epigastric | + + | Spasticity Abnormal involuntary movements | + + documented in this encounter
--- OUTSIDE RECORDS SUMMARY | ~2020-06-28 | XMS | Encounter Summary ---
Demographics + + + | Address | [address] | | | [place] [address] | + + + | Home Phone [...] Providers + +------+ + | Care Unit Trust Manager Name | Role | Phone | + +------+ + | Justo Vazquez MD | PCP | | + +------+ + Encounter Details +--------+------+ + + + | Date | Type | Department | Care Team | Description | +--------+------+ + + + | 12/14/ | Lab | Laboratory at [facility] | | Complex regional | | 2018 | | [address] | | pain syndrome type 1 | | | | Center for [facility] | | of left lower | | | | and Healing, | | extremity; Muscle | | | | Building 2 | | pain | | | | [place], [place] | | | | | | [address] | | | | | | [phone] | | | +--------+------+ + + + [...] | + + + + + | [facility] | [address] | [place] [address] | | | LILLIAN CROSS | GUILLERMO [...]
--- OUTSIDE RECORDS SUMMARY | ~2020-06-28 | XMS | Encounter Summary ---
Demographics + + + | Address | [address] | | | [place] [address] | + + + | Home Phone [...] Providers + +------+ + | Care Refuse Collector Supervisor Name | Role | Phone | [...] | | [facility] for | [place], [place] | | | | | Health and Healing, | [address] | | | | | | [phone] | | | | | [place], [place] | | | | | | [address] | | | | | | [phone] | | | +--------+ + + + [...]
--- OUTSIDE RECORDS SUMMARY | ~2020-06-28 | XMS | Encounter Summary ---
Demographics + + + | Address | [address] | | | [place] [address] | + + + | Home Phone [...] Team Providers + +------+ + | Care 411 Directory Assistance Operator Name | Role | Phone | + +------+ + | Justo Vazquez MD | PCP | | + +------+ + Encounter Details +--------+ + + + + | Date | Type | Department | Care Team | Description | +--------+ + + + + | 09/27/ | Telephone | [facility] | Ilene Bright, | | | 2017 | | Pain Center at | OPERATIONS LABEL CLERK [address] | | | | | [facility] | [place], [place] | | | | | [address] | [address] | | | | | [place] for [facility] | [phone] | | | | | and Healing, | | | | | | | | | | | | Floor [place], [place] | | | | | | [address] | | | | | | [phone] | | | +--------+ + + + [...]
--- OUTSIDE RECORDS SUMMARY | ~2020-06-28 | XMS | Encounter Summary ---
Demographics + + + | Address | [address] | | | [place] [address] | + + + | Home Phone [...] Providers + +------+ + | Care Valve Machine Operator Name | Role | Phone [...] Visit | Medicine Clinic at | R, SENIOR SALES OPERATIONS ANALYST [address] [facility] | (Primary Dx); | | | | [facility] | [address] | Complex regional | | | | [address] | [place], [place] | pain syndrome type 1 | | | | 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 Surgery check-in location: [facility] Day Stay - [place] [facility] and [facility], 4th floor Surgery Check in Time: The [...] is after office hours, call the [facility] ball machine operator at [phone] and ask them to page him or h er. documented in this encounter Progress Notes Catie Smart NP - 11/27/2018 2:05 PM PST PREOPERATIVE CONSULT NOTE Author: Catie Smart NP Referring Physician: Alex Sanchez MD Primary Care Provider: Justo Vazquez MD Reason for Consult: Preoperative evaluation and risk assessment Proposed Procedure/Date: implant SCS; 12/05/2018 Proposed Procedure Location: [facility] HISTORY OF PRESENT ILLNESS: Tracie Farah [...] renal failure no electrolyte abnormalities no dialysis Urology/Orthopedically Impaired Teacher: Interstitial cystitis LMP: irreg bleeding, ~11/14/2018, [...] recon soln Take as directed by [facility] [employer] [facility]- 2 gallon bowel prep polyethylene glycol 17 [...] patient is a lso currently scheduled at [facility] [place] and is meeting inclusion criteria [...] this patient's care. Catie Smart NP [facility] PBB PREOPERATIVE MEDICINE CLINIC AT [facility] 4TH FLOOR [address] [facility] [address] I advised the patient regarding [...]
--- OUTSIDE RECORDS SUMMARY | ~2020-06-28 | XMS | Encounter Summary ---
Demographics + + + | Address | [address] | | | [place] [address] | + + + | Home Phone [...] Providers + +------+ + | Care Reed Dipper Name | Role | Phone | [...] Medical Records | | 2017 | | [place] at [facility] [address] | MD Melissa | Review | | | | [address] [facility] | | | | | | for Health and | | | | | | [facility], [facility] 2 | | | | | | [place], [place] | | | | | | [address] | | | | | | [phone] | | | +--------+ + + + [...]
--- OUTSIDE RECORDS SUMMARY | ~2020-06-28 | XMS | Encounter Summary ---
Demographics + + + | Address | [address] | | | [place] [address] | + + + | Home Phone [...] Team Providers + +------+ + | Care Timekeeper Name | Role | Phone | + [...] + + | 10/21/ | Hospital | [place] [address] [address] | [place], | | | 2015 - | Encounter | [facility] | MD Tala [address] | | | | | [address] [place] [address] | [facility] | | | 10/25/ | | [place], [place] | [place], [place] | | | 2014 | | [address] | [address] | | | | | [phone] | | | | | | | | | | | | Clifton Childers | | | | | | MD Nhan [address] [facility] | | | | | | [facility] | | | | | | [place], [place] | | | | | | [address] | | | | | | [phone] | | | | | | | [...] child. Followed by Dr. Katy berrios at [facility] [place] [place]. Has been on a stable regimen [...] agreeable with our plans. Clifton Childers MD Archives Director Division of Hospital Medicine Teaching Attending I [...] child. Followed by Dr. Katy berrios at [facility] in [place], [place], has been on a stable regimen [...] and plan. Lolita Ma MD, MPH Pager #[phone] PGY-1, Anesthesiology [facility] Associated attestation - Clifton Childers [...] agreeable with our plans. Clifton Childers MD Archives Director Division of Hospital Medicine Teaching Attending I [...] received and reviewed: Date: 10/15/2015 Endoscopist: Zeeshan Saezn MD (general surgery) Sedation: not noted Findings: [...] child. Followed by Dr. Katy berrios at [facility] [place], [place], has been on a stable regimen [...] and plan. Lolita Ma MD, MPH Pager #[phone] PGY-1, Anesthesiology [facility] Associated attestation - Clifton Childers [...] history, primarily secondary to CPRS in the [facility] ng of complicated ankle fracture age ~12 [...] agreeable with our plans. Clifton Childers MD Archives Director Division of Hospital Medicine Teaching Attending I [...] good coping mechanism Heme/Lymphatic: negative Endocrine: negative Telephone Directory Deliverer: negative Past Medical History: History of chronic [...] for he r CRPS in the pastm [facility] pharmacy does not carry this so we are trying to arrange for her to take her home medication via pharmacy approval 5. APS will sign off but please call with questions/concerns Aba Dorman MD, PGY 3 Bat Boy/Girl [place]-2 APS Pager: [phone] BILLING INFORMATION Deferred to attending physician. Ms. [...] up at this point. Please contact APS (#[phone]) if further assistance is needed. Ulices Lopez MD BILLING INFORMATION [facility] DEPARTMENT: [phone] Place of Service:- Inpatient Date of Service: 10/23/2015 CSN: [id number] Suggested Modifier: GC - Resident Involved Suggested CPT: 44059 - Follow up visit (includes PNB) - [...] today recd call from Dr. Madrid from [facility]. She has known pt for many yea rs and suggested ketamine and propofol gtt. Updated her on APS recommendations. She will hav e her office fax her clinic records to us. Pt was seen with Dr. Childers. Milton Moreau MD PGY-3, Internal Medicine Pager [phone] Pro [place] RN - 10/22/2015 10:06 AM PSTActing as scribe for the UR Committee Physician named below. The primary medical team for this patient and the [facility] UR Committee have agreed after furth er study that an inpatient admission was not medically necessary. This hospital stay is con verted to an outpatient stay through use of Medicare Condition Code 44. The patient was not ified of this change in writing. The providers involved in this decision were: For patient s primary medical team: Melissa Childers MD For [facility] UR Committee: Kerry HARRIS RN CM [...] | | | LABORATORY | | | [place] | | | SERVICES, | | | [...] | + + + + + | [facility] | [address] | [place] [address] | | | SERVICES, CORE | PARK [...] | | + +---------+ + + | [facility] DEPARTMENT OF | | | | [...] | + + + | STAT | [facility] | | | LABORATORY | | | LILLIAN CROSS | + + + + + + + + | Performing | Address | City/State/Zipcode | Phone Number | | Organization | | | | + + + + + | [facility] | [address] | [place] [address] | | | SERVICESLILLIAN | [address] [...] | | | LABORATORY | | | [place] | | | SERVICES, | | | [...] the MDRD equation recommended by the | [facility] | | National Kidney Disease Education [...] [facility] | [address] | [place] [address] | | | SERVICES, CORE | PARK [...] | + + + + + | [facility] | [address] | [place] [address] | | | SERVICES, CORE | GUILLERMO [...] [facility] | [address] | [place] [address] | | | SERVICES, CORE | PARK [...] + + + + + | [facility] | [address] | [place] [address] | | | SERVICES, CORE | PARK [...] | + + + + + | [facility] | [address] [facility] [address] | [place] [address] | | | SERVICES, CORE | GUILLERMO [...] | | | LABORATORY | | | [place] | | | SERVICES, | | | [...] [facility]EVIN [facility] | [address] | [place] [address] | | | SERVICES, CORE | PARK [...] | | | | | 1 dose, [facility] 10/23/15 at 1245 | | PM PST | | | | + +-------+ +-------+---+---+ +---+---+ | | | +---+---+ + +-------+ +--------+---+---+ | ibuprofen (MOTRIN) tablet 600 | Given | 10/25/20 | 600 mg | | | | mg 600 mg, oral, EVERY 6 HOURS, | | 15 8:05 | | | | | First dose on [facility] 10/23/15 at | | AM [...] | | | | | NEEDED, Starting [facility] 10/23/15 at | | | | [...]
--- OUTSIDE RECORDS SUMMARY | ~2020-06-28 | XMS | Encounter Summary ---
Demographics + + + | Address | [address] | | | [place] [address] | + + + | Home Phone [...] Providers + +------+ + | Care Electrical Instrument Repairer Name | Role | Phone | + +------+ + | Justo Vazquez MD | PCP | | + +------+ + Encounter Details +--------+ + + + + | Date | Type | Department | Care Team | Description | +--------+ + + + + | 07/28/ | Documentati | [facility] | Ilene Bright, | | | 2017 | on | Pain Center at | CYTOTECHNOLOGIST/HISTOTECHNOLOGIST [address] | | | | | [facility] | [facility] [place] | | | | | [address] | [address] | | | | | [place] for [facility] | [phone] | | | | | and Healing, | | | | | | | | | | | | Floor [place], [place] | | | | | | [address] | | | | | | [phone] | | | +--------+ + + + [...]
--- OUTSIDE RECORDS SUMMARY | ~2020-06-28 | XMS | Encounter Summary ---
Demographics + + + | Address | [address] | | | [place] [address] | + + + | Home Phone [...] Providers + +------+ + | Care Director Non Profit Name | Role | Phone | + [...] | 2016 | Encounter | Center at [facility] [address] | | results | | | | [facility] | | | | | | for Health and | | | | | | Healing, Building 2 | | | | | | [place], [place] | | | | | | [address] | | | | | | [phone] | | | +--------+ + + + [...]
--- OUTSIDE RECORDS SUMMARY | ~2020-06-28 | XMS | Encounter Summary ---
Demographics + + + | Address | [address] | | | [place] [address] | + + + | Home Phone [...] Providers + +------+ + | Care Truck Driving Instructor Name | Role | Phone [...] Rd | | | | | | [place], [place] | | | | | | [address] | | | +--------+ + + + [...]
--- OUTSIDE RECORDS SUMMARY | ~2020-06-28 | XMS | Encounter Summary ---
Demographics + + + | Address | [address] | | | [place] [address] | + + + | Home Phone [...] Providers + +------+ + | Care Supervisor Tank Storage Name | Role | Phone | + [...] | | [facility] | [place], [place] | | | | | Health and Healing, | [address] | | | | | | [phone] | | | | | [place], [place] | | | | | | [address] | | | | | | [phone] | | | +--------+ + + + [...] Note | + + | Service Account, [employer] Res In Interface - 03/08/2018 9:42 AM [...]
--- OUTSIDE RECORDS SUMMARY | ~2020-06-28 | XMS | Encounter Summary ---
Demographics + + + | Address | [address] | | | [place] [address] | + + + | Home Phone [...] Providers + +------+ + | Care Retail Operations Specialist Name | Role | Phone | [...] | Pain Center at | ,PhD [address] [facility] | sig) | | | | [facility] | [address] | | | | | [address] | [place], [place] | | | | | [facility] | [address] | | | | | and Martina, | [phone] | | | | | [facility] | | | | | | Floor [place], [place] | | | | | | [address] | | | | | | [phone] | | | +--------+ + + + [...]
--- OUTSIDE RECORDS SUMMARY | ~2020-06-28 | XMS | Encounter Summary ---
Demographics + + + | Address | [address] | | | [place] [address] | + + + | Home Phone [...] + + | 03// | Telephone | [facility] | Alex Sanchez, | Medication (clarify | | 2018 | | Pain Center at | ,PhD [address] | sig on Ketamine) | | | | [facility] | [facility] | | | | | [address] | [place], [place] | | | | | [facility] | [address] | | | | | and Healing, | [phone] | | | | | Building | | | | | | Floor [place], [place] | | | | | | [address] | | | | | | [phone] | | | +--------+ + + + [...]
--- OUTSIDE RECORDS SUMMARY | ~2020-06-28 | XMS | Encounter Summary ---
Demographics + + + | Address | [address] | | | [place] [address] | + + + | Home Phone [...] Providers + +------+ + | Care Package Wrapper Name | Role | Phone | + [...] Review | | | | [address] [facility] for | | | | | | Health and Healing, | | | | | | Building 2 | | | | | | [place], [place] | | | | | | [address] | | | | | | [phone] | | | +--------+ + + + [...]
--- OUTSIDE RECORDS SUMMARY | ~2020-06-28 | XMS | Encounter Summary ---
Demographics + + + | Address | [address] | | | [place] [address] | + + + | Home Phone [...] Team Providers + +------+ + | Care Mens Locker Room Attendant Name | Role | Phone | + +------+ + | Alelgra Chaudhary | PCP | | + +------+ + Encounter Details +--------+ + + + + | Date | Type | Department | Care Team | Description | +--------+ + + + + | 08/06/ | Hospital | Registration HOV | | | | 2016 | Encounter | [address] | | | | | | [place], | | | | | | [place] [address] | | | +--------+ + + + [...]
--- OUTSIDE RECORDS SUMMARY | ~2020-06-28 | XMS | Encounter Summary ---
Demographics + + + | Address | [address] | | | [place] [address] | + + + | Home Phone [...] Team Providers + +------+ + | Care Referral Specialist Name | Role | Phone | [...] Rd | | | | | | [place], [place] | | | | | | [address] | | | +--------+ + + + [...]
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
--- OUTSIDE RECORDS SUMMARY | ~2020-06-28 | XMS | Encounter Summary ---
Demographics + + + | Address | [address] | | | [place] [address] | + + + | Home Phone [...] Providers + +------+ + | Care Manager Mechanical Name | Role | Phone | + +------+ + | Justo Vazquez MD | PCP | | + +------+ + Encounter Details +--------+------+ + + + | Date | Type | Department | Care Team | Description | +--------+------+ + + + | 04/23/ | Lab | Laboratory at [facility] | | Other chronic pain ; | | 2018 | | [address] | | Complex regional | | | | Center for [facility] | | pain syndrome type 1 | | | | and Healing, | | of left lower | | | | Building 2 | | extremity | | | | [place], [place] | | | | | | [address] | | | | | | [phone] | | | +--------+------+ + + + [...] LABORATORY | | Barbiturates >=200 ng/mL | [facility] | | Benzodiazepine >=200 ng/mL Cocaine | [...] | KEVIN SHAH | [address] | [place] [address] | | | SERVICES, LILLIAN | GUILLERMO [...]
--- OUTSIDE RECORDS SUMMARY | ~2020-06-28 | XMS | Encounter Summary ---
Demographics + + + | Address | [address] | | | [place] [address] | + + + | Home Phone [...] Team Providers + +------+ + | Care Pictures Editor Name | Role | Phone | [...] | | | Management | Complex | Alxe D, | Alex D, | | | [...] | | | | | extremity | [address] | [address] | | | | | Muscle pain | Phone: | Phone: | | | | | Procedures | [phone] | [phone] | | | | | REQUEST TO | Fax: | Fax: | | | | | SURGERY | [phone] | [phone] | | | | | CONSULTANT DIETITIAN | | | | | | | AL INJ,ANES | | | | | | | AGENT,SCIATI | | | | | | | C | | | | | | | NERVE,SINGLE | | | | | | | AL INJECT | | | | | | | NERV | | | | | | | BLCK,OTHR | | | | | | | PERIPH NERV | | | | | | | AL SONO | | | | | | | GUIDE FOR | | | | | | | NEEDLE | | | | | | | PLACEMENT | | | | | | | AL MOD | | | | | | | SEDATION | | | | | | | >=5YRS SAME | | | | | | | MD/QUAL | | | | | | | PROV; INIT | | | | | | | 15 MIN AL | | | | | | [...] 12/27/ | Procedure | Pain Center at [facility] | Alex Sanchez, | Pain in left leg; | | 2017 | | [address] | ,PhD [address] | Procedure | | | | Center for Health | [facility] | | | | | and Healing, | [place], [place] | | | | | [facility] | [address] | | | | | [place], [place] | [phone] | | | | | [address] | | | | | | [phone] | | | +--------+ + + + [...] note mi [facility]elit [facility] - Post Interventional Procedure Date: 12/27/2017 Name: Tracie Farah Date of : 1990 Procedure Performed: trigger point injection and popliteal/sciatic block. Procedure Provider: Alex Sanchez MD,PhD If you have any problems you believe are associated with your procedure tonight, Please call the Hospital Senior Python Developer, and ask for the Pain Management Consu [...] paper. Please fax the pain diary to [phone] or attach a scanned image of it to a [employer] message to your doct or.. The area [...] to the larry ent. David Linares MD [facility] documented in this encounter Progress Notes Alex Sanchez MD,PhD - 12/27/2017 3:00 PM PSTI was present for the entire procedure ( popliteal nerve block and abdominal scar neuroma injection) and all bocanegra elements of this vis it. I reviewed the documentation of the other [facility] providers and concur with Dr. Linares's findings. I edited his note. Alex Sanchez MD,PhD Flex O Writer Operator Anesthesiology and Pain Management [facility] David Pennington MD - 12/27/2017 3:00 PM PSTPROVIDER OPERATIVE NOTE Date: December 27, 2017 Location: [facility] Procedure Room Tracie Farah [id number] :1990, presents to clinic for: PROCEDURE: Popliteal/sciatic [...] scar neuroma ATTENDING PHYSICIAN: Alex Sanchez MD,PhD HOT MILL OBSERVER: Fellow David Linares MD ANESTHESIA: sedation Isadora [...] sedation. Ms. Farah was escorted to the [facility] Procedure R oom, where she was [...] procedure. Images were saved, and sent to [employer]. Ms. Farah was transported to the [facility] [...] by physician. Concentration is 150mg/mL. Compounded by [facility] ) LEVONORGESTREL 20 MCG/24 HR (5 [...] Take as directed by [facility] Dig[facility]ive [facility]- 2 gallon bowel prep POLYETHYLENE [...] PRE-SEDATION: Date: December 27, 2017 Tracie Farah [id number] 1990 ALLERGIES: Morphine Previous reaction to Sedation/Analgesia: [...] ride here with you? yes Who?: mother RN/LOCKSTITCH BINDER History: 1. Has your pain changed from [...] Date: December 27, 2017 Tracie Ocampojulita Farah [id number] 1990 See RN /LOCKSTITCH BINDER Pre-Sedation Note. IV ACCESS:Right subc PAC. BASELINE VS: See Sedation Flow Sheet. Tracie Donaldson Sofi [id number] 1990, presents to clinic for: Procedure: left [...] started. 1530 Midazolam 2mg IV given 1530 [id number] mcg IV given 1534 Midazolam 1mg IV given 1546 Midazolam 1mg IV given 1546 [id number] mcg IV given 1548 Fentanyl 100 mcg IV given bupivacaine 0.5%, 9mL given, 21mL wasted Kenalog 40mg/mL 1mL, 0 mL wasted 1555 abdominal scar trigger point completed. 1558 Fentanyl 50 mcg IV given 1601 Fentanyl 50 mcg IV given Picayune placed for Popliteal Nerve Block.. Placement verified [...] + +--------+ + + + | AL INJECTION(S), | Routin | 12/27/2017 | Complex regional | | | ANESTHETIC AGENT(S) | e | 4:32 PM | pain syndrome type 1 | | | AND/OR STEROID; | | PST | of left lower | | | OTHER PERIPHERAL | | | extremity | | | NERVE OR BRANCH | | | | | + +--------+ + + + | AL ROPIVACAINE HCL | Routin | 12/27/2017 | Complex regional | | | INJ 0.5% | e | 4:32 PM | pain syndrome type 1 | | | | | PST | of left lower | | | | | | extremity | | + +--------+ + + + | AL MOD SEDATION | Routin | 12/27/2017 | Complex regional | | | >=5YRS SAME MD/QUAL | e | 4:32 PM | pain syndrome type 1 | | | PROV; INIT 15 MIN | | PST | of left lower | | | | | | extremity | | + +--------+ + + + documented in this encounter Results [facility] MISC PROCEDURE (12/27/2017 3:28 PM PST) + [...]
--- OUTSIDE RECORDS SUMMARY | ~2020-06-28 | XMS | Encounter Summary ---
Demographics + + + | Address | [address] | | | [place] [address] | + + + | Home Phone | | + + + | Preferred Language | Unknown | + + + | Marital Status | Single | + + + | Caodaism Affiliation | [id number] | + + + | Race | Unknown | + + + | Ethnic Group | Unknown | + + + Author + + + | Author | [facility] | | | and [place] | + + + | Organization | [facility] | | | and [place] [...] [place] | | | | | [address] | | + + + + + | Bryant Farah | ECON | Unknown | | + + + + + Care Team Providers + +------+ + | Care Fagot Heater Helper Name | Role | Phone | + +------+ + PCP | Unavailable | + +------+ + Encounter Details +--------+ + + + + | Date | Type | Department | Care Team | Description | +--------+ + + + + | 03/16/ | Hospital | [facility] | Conversion | Back pain | | 2013 | Encounter | CONVERSION [address] | Transaction, | | | | | [address] | Provider Unknown | | | | | [place], [place] | [phone] | | | | | [address] | | | | | | [phone] | | | +--------+ + + + [...]
--- OUTSIDE RECORDS SUMMARY | ~2020-06-28 | XMS | Encounter Summary ---
Demographics + + + | Address | [address] | | | [place] [address] | + + + | Home Phone [...] Team Providers + +------+ + | Care Telesales Manager Name | Role | Phone | + +------+ + | Justo Vazquez MD | PCP | | + +------+ + Encounter Details +--------+ + + + + | Date | Type | Department | Care Team | Description | +--------+ + + + + | 09/25/ | Pharmacy | [facility] | | | | 2018 | Visit | & [facility] | | | | | | [address] | | | | | | Mailcode: [place] | | | | | | [facility] and | | | | | | Healing, [address] | | | | | | [place], [place] | | | | | | [address] | | | | | | [phone] | | | +--------+ + + + [...]
--- OUTSIDE RECORDS SUMMARY | ~2020-06-28 | XMS | Encounter Summary ---
Demographics + + + | Address | [address] | | | [place] [address] | + + + | Home Phone [...] +------+ + | Care Vice President Of Sales Name | Role | Phone | [...] on | Pain Center at | [address] [facility] | evaluation (No | | | | [facility] | [facility] [id number] | evidence of drug | | | | [address] | [place], [place] | abuse) | | | | [facility] | [address] | | | | | and Healing, | [phone] | | | | | [facility] | | | | | | Floor [place], [place] | | | | | | [address] | | | | | | [phone] | | | +--------+ + + + [...]
--- OUTSIDE RECORDS SUMMARY | ~2020-06-28 | XMS | Encounter Summary ---
Demographics + + + | Address | [address] | | | [place] [address] | + + + | Home Phone [...] | | 2016 | | Center at [facility] [address] | [address] | | | | | [address] [place] | [address] | | | | | [facility] and | [place], [place] | | | | | [facility] | [address] | | | | | [place], [place] | [phone] | | | | | [address] | | | | | | [phone] | | | +--------+ + + + [...]
--- OUTSIDE RECORDS SUMMARY | ~2020-06-28 | XMS | Encounter Summary ---
Demographics + + + | Address | [address] | | | [place] [address] | + + + | Home Phone [...] Providers + +------+ + | Care Cleaner Laboratory Equipment Name | Role | Phone | [...] + + | 09/14/ | Telephone | [facility] Ilene | Alex Sanchez, | Education procedure | | 2018 | | Pain Center at | ,PhD [address] | (preprocedure | | | | [facility] | [address] | education [facility]) | | | | [address] | [place], [place] | | | | | [facility] | [address] | | | | | and Healing, | [phone] | | | | | | | | | | | Floor [place], [place] | | | | | | [address] | | | | | | [phone] | | | +--------+ + + + [...]
--- OUTSIDE RECORDS SUMMARY | ~2020-06-28 | XMS | Encounter Summary ---
Demographics + + + | Address | [address] | | | [place] [address] | + + + | Home Phone [...] Team Providers + +------+ + | Care Reconciler Name | Role | Phone | + +------+ + | Justo Vazquez MD | PCP | | + +------+ + Encounter Details +--------+ + + + + | Date | Type | Department | Care Team | Description | +--------+ + + + + | 09/20/ | Telephone | [facility] | Ilene Bright, | | | 2017 | | Pain Center at | EPIC ANALYST [address] | | | | | [facility] | [place], [place] | | | | | [address] | [address] | | | | | [place] for [facility] | [phone] | | | | | and Healing, | | | | | | | | | | | | Floor [place], [place] | | | | | | [address] | | | | | | [phone] | | | +--------+ + + + [...]
--- OUTSIDE RECORDS SUMMARY | ~2020-06-28 | XMS | Encounter Summary ---
Demographics + + + | Address | [address] | | | [place] [address] | + + + | Home Phone [...] Providers + +------+ + | Care Branch Account Executive Name | Role | Phone [...] | | Center at [facility] [address] | | severe stomach Pain) | | | | [address] [facility] | | | | | | for Health and | | | | | | Healing, [address] | | | | | | [place], [place] | | | | | | [address] | | | | | | [phone] | | | +--------+ + + + [...]
--- OUTSIDE RECORDS SUMMARY | ~2020-06-28 | XMS | Encounter Summary ---
Demographics + + + | Address | [address] | | | [place] [address] | + + + | Home Phone [...] Team Providers + +------+ + | Care Strategy Planning Consultant Name | Role | Phone | + +------+ + | Justo Vazquez MD | PCP | | + +------+ + Encounter Details +--------+ + + + + | Date | Type | Department | Care Team | Description | +--------+ + + + + | 12/05/ | Procedure | [facility] | | | | 2019 | Pass | [place] [facility] | | | | | | and Healing Surgery | | | | | | Center Admitting | | | | | | Desk Located on the | | | | | | 4th floor [address] | | | | | | [address] [place], | | | | | | [place] [address] | | | +--------+ + + + [...]
--- OUTSIDE RECORDS SUMMARY | ~2020-06-28 | XMS | Encounter Summary ---
Demographics + + + | Address | [address] | | | [place] [address] | + + + | Home Phone [...] Providers + +------+ + | Care Clinical Program Consultant Name | Role | Phone | + +------+ + | Justo Vazquez MD | PCP | | + +------+ + Encounter Details +--------+ + + + + | Date | Type | Department | Care Team | Description | +--------+ + + + + | 01/31/ | Documentati | Vascular Access at | [place], | | | 2017 | on | [facility] [address] | Maru RN [address] | | | | | [address] | [address] | | | | | [facility] | [place], [place] | | | | | [place], [place] | [address] | | | | | [address] | | | | | | [phone] | | | +--------+ + + + [...]
--- OUTSIDE RECORDS SUMMARY | 2020-06-28 16:28 | XMS ---
PreManage Notification: BRODY LINCOLN Security Helpdesk Analyst Events No recent Security Events currently on file CRITERIA MET - Group Notification - 6 ED Visits in 6 Months - [facility] - Has Care Guidelines - PDMP - [facility] - 2 Visits in 30 Days CARE PROVIDERS MARCELINO PERRY Internal Medicine Current PHONE: [phone] Aron aHnnah Anesthesiology: Pain Medicine 07/18/2018-Current PHONE: Unknown Guidelines Source: [facility] Guidelines Date: 08/22/2019 Care Recommendation: PATIENT HAS HISTORY COMPLEX REEGIONAL PAIN SYNDROME WELL CYCLICAL ABDOMINAL PAIN/NAUSEA/VOMITING.\T\nbsp; UNDER TREATMENT WITH ARON HANNAH MD PHD PAIN MANAGMENT [facility].\T\nbsp; FOLLOW THIS REGIMEN WHEN PRESENTING TO ED FOR RESOLUTION OF SYMPTOMS: *HYDRATION IV *HYDROMORPHONE 1MG IV * KETOROLAC 30 MG IV *PROMETHAZINE 25MG IV Additional care guidelines exist for the following facilities: [facility] ( 05/21/2019 ) Care History Medical/Surgical 06/24/2020 [facility] Patient scheduled with Dr. Trujillo on 07/03/2020 at 15:00. 2020 [facility] - PATIENT HAS A CONSULT WITH DR TRUJILLO ON 06/05/2020. 03/06/2020 [facility] Patient has scheduled follow up with Dr. Quach at 11:00 am today.\T\nbsp; [address] Quach in next few weeks. ETyree. VISIT COUNT (12 MO.) 11 [facility]. TOTAL 11 NOTE: Visits indicate total known visits. ED/UCC VISIT TRACKING (12 MO.) 06/28/2020 16:25 [facility] [place] TYPE: Emergency COMPLAINT: - VOMITING, ABD PAIN 06/23/2020 16:57 [facility] [place] TYPE: Emergency COMPLAINT: - ABDOMINAL PAIN/VOMITING DIAGNOSES: - Allergy status to narcotic agent status - Other code clerk (current) drug therapy - Unspecified abdominal pain - Nausea with vomiting, unspecified 06/02/2020 15:35 [facility] [place] TYPE: Emergency COMPLAINT: - ABD PAIN, VOMITING DIAGNOSES: - Allergy status to other drugs, medicaments and biological sub - Unspecified abdominal pain - custodial (current) use of anticoagulants - Other code clerk (current) drug therapy - Allergy status to narcotic agent status 05/29/2020 19:40 [facility] [place] TYPE: Emergency COMPLAINT: - ABD PAIN,VOMITING DIAGNOSES: - Allergy status to narcotic agent status - Unspecified abdominal pain - Complex regional pain syndrome I of other specified site - Other shelter (current) drug therapy 05/26/2020 19:15 [facility] [place] TYPE: Emergency COMPLAINT: - ABDOMINAL PAIN/VOMITING DIAGNOSES: - Allergy status to narcotic agent status - Unspecified abdominal pain - Complex regional pain syndrome I of other specified site - Other shelter (current) drug therapy - Vomiting, unspecified - Unspecified abdominal pain 03/23/2020 06:39 [facility] [place] TYPE: Emergency COMPLAINT: - ABD PAIN, VOMITING 03/09/2020 13:21 [facility] [place] TYPE: Emergency COMPLAINT: - ABD PAIN, VOMITING DIAGNOSES: - Personal history of nicotine dependence - Complex regional pain syndrome I, unspecified - Allergy status to narcotic agent status - Other shelter (current) drug therapy - Nausea with vomiting, unspecified 03/05/2020 10:51 [facility] [place] TYPE: Emergency COMPLAINT: - ABD PAIN, VOMITING DIAGNOSES: - Other code clerk (current) drug therapy - Other chronic pain - Nicotine dependence, unspecified, uncomplicated - 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 - Allergy status to other drugs, medicaments and biological sub - Cyclical vomiting syndrome unrelated to migraine - Unspecified abdominal pain - Allergy status to narcotic agent status 08/12/2019 15:11 [facility] [place] TYPE: Emergency COMPLAINT: - ABD PAIN, NAUSEA 08/10/2019 13:43 [facility] [place] TYPE: Emergency COMPLAINT: - ABD/BACK PAIN, VOMITING DIAGNOSES: - Other shelter (current) drug therapy - Upper abdominal pain, unspecified - Allergy status to narcotic agent status - Cyclical vomiting, not intractable 08/08/2019 18:18 [facility] [place] TYPE: Emergency COMPLAINT: - SEVERE ABD AND BACK PAIN, VOMITING DIAGNOSES: - Other shelter (current) drug therapy - Complex regional pain syndrome I, unspecified - Unspecified abdominal pain - Allergy status to other drugs, medicaments and biological sub - Allergy status to narcotic agent status INPATIENT VISIT TRACKING (12 MO.) 03/23/2020 15:02 [facility] [place] TYPE: Medical Surgical COMPLAINT: - BILATERAL PE DIAGNOSES: - custodial (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 - Presence of (intrauterine) contraceptive device - Right upper quadrant pain - Complex regional pain syndrome I of left lower limb - Nonspecific elevation of levels of transaminase and lactic ac - Right upper quadrant pain - Interstitial cystitis (chronic) without hematuria - Complex regional pain syndrome I of left lower limb - Other shelter (current) drug therapy - Cyclical vomiting syndrome unrelated to migraine - Major depressive disorder, single episode, unspecified - Cyclical vomiting syndrome unrelated to migraine - 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 - Nonspecific elevation of levels of transaminase and lactic ac - Other pulmonary embolism without acute cor pulmonale - Allergy status to narcotic agent status - Presence of (intrauterine) contraceptive device - Other code clerk (current) drug therapy - Allergy status to narcotic agent status - Major depressive disorder, single episode, unspecified - Opioid dependence, uncomplicated - Opioid dependence, uncomplicated - Interstitial cystitis (chronic) without hematuria 08/12/2019 15:12 [facility] [place] TYPE: Observation COMPLAINT: - INTACKABLE ABDOMINAL PAIN DIAGNOSES: - custodial (current) use of opiate analgesic - Allergy status to narcotic agent status - Unspecified mood [affective] disorder - Complex regional pain syndrome I of left lower limb - Nausea with vomiting, unspecified - Right upper quadrant pain - Chronic pain syndrome - Other shelter (current) drug therapy - Other constipation [email or web address]
== END 2020-06-28 20:02 | disposition home or self-care (01) ==
LOC: ED 16:24
DX: R10.13 Epigastric pain (principal); G90.522 Complex regional pain syndrome I of left lower limb; D72.829 Elevated white blood cell count, unspecified; Z88.5 Allergy status to narcotic agent; Z79.899 Other long term (current) drug therapy
CPT/HCPCS: 80053; 81001; 83735; 85025; 96374; 96375; 99284-25; J2550

== ENCOUNTER 2020-07-04 07:16 | Emergency (ER) | payer MEDICARE, OTHER ==
[~2020-07-04] VITALS: Ht 165.1 cm; Wt 95.2 kg
--- OUTSIDE RECORDS SUMMARY | ~2020-07-04 | XMS | Encounter Summary ---
Demographics + + + | Address | [address] | | | [place] [address] | + + + | Home Phone | | + + + | Preferred Language | Unknown | + + + | Marital Status | Single | + + + | Christian Affiliation | FMD | + + + | Race | White | + + + | Ethnic Group | Not or | + + + Author + + + | Author | [facility] | + + + | Organization | [facility] | + + + | Address | Unknown | + + + | Phone | Unavailable | + + + Support + + +---------+ + | Name | Relationship | Address | Phone | + + +---------+ + | Patricia Colin | ECON | Unknown | | + + +---------+ + Care Team Providers + +------+ + | Care Scraper Tender Name | Role | Phone | + +------+ + | Justo Vazquez MD | PCP | | + +------+ + Reason for Visit + + + | Reason | Comments | + + + | Test Results | | + + + | Treatment Planning | | + + + Encounter Details +--------+ + + + + | Date | Type | Department | Care Team | Description | +--------+ + + + + | 10/04/ | Telephone | [facility] | Ava Carbajal | Test Results; | | 2015 | | Center at [facility] [address] Junior Torres MD | Treatment Planning | | | | [address] [place] | | | | | | for Health and | | | | | | [facility] | | | | | | [place], [place] | | | | | | [address] | | | | | | [phone] | | | +--------+ + + + + Social History + +-------+ +--------+------+ | Tobacco Use | Types | Packs/Day | Years | Date | | | | | Used | | + +-------+ +--------+------+ | Never Smoker | | | | | + +-------+ +--------+------+ + +---+---+---+ | Smokeless Tobacco: | | | | | Never Used | | | | + +---+---+---+ + + +---------+ + | Alcohol Use | Drinks/Week | oz/Week | Comments | + + +---------+ + | No | | | | + + +---------+ + + + + | Sex Assigned at | Date Recorded | | | | + + + | Not on file | | + + + + + + + | Job Start Date | Occupation | Industry | + + + + | Not on file | Not on file | Not on file | + + + + + + + + | Travel History | Travel Start | Travel End | + + + + + + | No recent travel history available. | + + documented as of this encounter Plan of Treatment Not on filedocumented as of this encounter Visit Diagnoses Not on filedocumented in this encounter"
--- OUTSIDE RECORDS SUMMARY | ~2020-07-04 | XMS | Encounter Summary ---
Demographics + + + | Address | [address] | | | [place] [address] | + + + | Home Phone | | + + + | Preferred Language | Unknown | + + + | Marital Status | Single | + + + | Mandaeism Affiliation | FMD | + + + | Race | White | + + + | Ethnic Group | Not or | + + + Author + + + | Author | [facility] | + + + | Organization | [facility] | + + + | Address | Unknown | + + + | Phone | Unavailable | + + + Support + + +---------+ + | Name | Relationship | Address | Phone | + + +---------+ + | Patricia Colin | ECON | Unknown | | + + +---------+ + Care Team Providers + +------+ + | Care Finisher Brush Name | Role | Phone | + +------+ + | Allegra Chaudhary | PCP | | + +------+ + Reason for Visit + + + | Reason | Comments | + + + | Nausea and vomiting | | + + + AUTH/CERT +--------+--------+ + + + + | Status | Reason | Specialty | Diagnoses / | Referred By | Referred To | | | | | Procedures | Contact | Contact | +--------+--------+ + + + + | | | | | | | +--------+--------+ + + + + Encounter Details +--------+ + + + + | Date | Type | Department | Care Team | Description | +--------+ + + + + | 10/21/ | Hospital | [place] [address] [address] | [place], | | | 2015 - | Encounter | [facility] | MD [address] | | | | | [address] [place] [address] | [facility] | | | 10/25/ | | [place], [place] | [place], [place] | | | 2014 | | [address] | [address] | | | | | [phone] | [phone] | | | | | | | | | | | | Clifton Childers | | | | | | MD Nhan [address] [facility] | | | | | | [facility] | | | | | | [place], [place] | | | | | | [address] | | | | | | [phone] | | | | | | | | +--------+ + + + + Social History + +-------+ +--------+------+ | Tobacco Use | Types | Packs/Day | Years | Date | | | | | Used | | + +-------+ +--------+------+ | Never Smoker | | | | | + +-------+ +--------+------+ + + +---------+ + | Alcohol Use [...] + + documented as of this encounter Last Filed Vital Signs + + + + + | Vital Sign | Reading | Time Taken | Comments | + + + + + | Blood Pressure | 114/87 | 10/25/2015 7:53 AM | | | | | PST | | + + + + + | Pulse | 82 | 10/25/2015 7:53 AM | | | | | PST | | + + + + + | Temperature | 36.8 C (98.2 F) | 10/25/2015 7:53 AM | | | | | PST | | + + + + + | Respiratory Rate | 18 | 10/25/2015 7:53 AM | | | | | PST | | + + + + + | Oxygen Saturation | 100% | 10/25/2015 7:53 AM | | | | | PST | | + + + + + | Inhaled Oxygen | - | - | | | Concentration | | | | + + + + + | Weight | 74.8 kg (164 lb 14.5 | 10/21/2015 8:00 PM | | | | oz) | PST | | + + + + + | Height | 162.6 cm (5' 4") | 10/21/2015 8:00 PM | | | | | PST | | + + + + + | Body Mass Index | 28.31 | 10/21/2015 8:00 PM | | | | | PST | | + + + + + documented in this encounter Discharge Summaries Subha Ma MD - 10/25/2015 4:58 PM PSTInternal Medicine Summary and Discharge Rec ommendations Internal Medicine Attending: Clifton Childers MD Author: Subha Ma MD/MPH Team Responsible for discharge orders: GM5 Hospital Stay: 4 day(s) PCP: BJORN Villalpando Admission Date: 10/21/2015 Discharge Date: 10/25/2015 Patients Hospital Problem List: 1) CRPS (complex regional pain syndrome), lower limb 2) Epigastric pain 3) Nausea and vomiting 4) 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 The Acute Pain Service was consulted for her pa in and a ketamine drip was trialed, which did not alleviate her pain. She was treated with a combination of IV and PO opioid pain medications and, by HOD#3, her pain began to decrease. Our GI team was consulted and, ultimately, could not determine an organic source of her ab dominal pain. A CT enterography revealed a large colonic stool burden indicative of constipa tion, but no small bowel obstruction or other pathology. Most likely, this episode represent s functional abdominal pain. Good discussions were had with the patient and her family regar ding ways in which the patient may be able to monitor her triggers and decrease her symptoms . -Continue to wean opioid narcotics post-discharge -Continue with home bowel regimen to avoid constipation -Look into mindfulness, yoga, and/or cognitive behavioral therapy (CBT) courses #Complex regional pain syndrome: Thought to be 2/2 LLE injury as a child. Followed by Dr. Katy berrios at [facility] in [place], [place]. Has been on a stable regimen for the past few years (intra nasal ketamine, lamictal, memantine, ibuprofen). The Acute Pain Service was consulted during this hospitalization and felt that it is unlikely that these medications were causing her a bdominal signs and symptoms and recommended continuing her regimen with no changes. -Continue home CRPS regimen, as above -Follow-up with Dr. Jesse CASTREJON #Anxiety/Depression: As above, discussed with patient that keeping her anxiety and depressi on under control, along with improved mindfulness and recognition of triggers may help impro ve her overall abdominal symptoms -Continue home methylphenidate, lorazepam -Consider referral for mindfulness, yoga and/or cognitive behavioral therapy (CBT) classes Rationale for Medication Changes: No changes were made to the patient's CPRS regimen. Lactulose was added to help with constipation. Discharge Physical Exam: Blood pressure 114/87, pulse 82, temperature 36.8 C (98.2 F), resp. rate 18, height 1.6 26 m (5' 4"), weight 74.8 kg (164 lb 14.5 oz), SpO2 100 %. General: Young woman, well-appearing, pleasant, NAD HEENT/Neck: Atraumatic, no scleral icterus, no LAD Cardiovascular: RRR, no m/g/r, normal S1/S2 Pulmonary: CTAB, breathing easy on RA Abdominal: Soft, nondistended, very mildly tender to deep palpation at the epigastric regio n, +BS Skin: WNL, no rahses Musculoskeletal: Moving all four extremities equally, LLE sensitive to touch w no overt ex ternal injury Neuro: AOx3, no focal deficits Psych: Normal mood and affect Lines: None Pertinent Findings: Imagin10/23/2015 - CT Abdomen & Pelvis w Contrast LOWER THORAX: Mild bilateral dependent atelectasis. Lung bases otherwise clear. LIVER: Focal fat infiltration along the fissure for the falciform ligament. BILIARY: Gallbladder surgically absent. Mild central intrahepatic biliary dilation presumably related to post cholecystectomy status. PANCREAS: Unremarkable. SPLEEN: Unremarkable. ADRENALS: Unremarkable. KIDNEYS/URETERS: Unremarkable. PELVIC ORGANS/BLADDER: Normal urinary bladder. IUD central within the endometrial canal. Ovaries normal. GI TRACT: Large colonic formed stool load. Surgical changes near the ileocecal junction likely from prior appendectomy. No abnormal small or large bowel dilation or inflammation. PERITONEUM: No free air or fluid. LYMPH NODES: No lymphadenopathy. VESSELS: Unremarkable. BONES AND SOFT TISSUES: Unremarkable. IMPRESSION: 1. No acute abnormalities in the abdomen or pelvis. 2. Large colonic formed stool load suggesting constipation. Outstanding or Pending Labs/Studies: None Consultants (service/attending name): Acute Pain Service - Dr. Antony Beltre Gastroenterology - Dr. Alex Sanchez Follow-up Appointments: As needed with PCP and Dr. Molina, pain specialist Subha Ma MD Associated attestation - Clifton Childers MD - 10/26/2015 9:25 PM PSTGeneral Medicine Attending Discharge Note Author: Clifton Childers MD Hospital Day # 4 PCP: BJORN Villalpando I personally interviewed the patient, performed the bocanegra elements of the physical examinatio n, and personally formulated the assessment and plan with Dr Ma. Please see dischar ge note for additional details; notable exceptions as written below. ROS as per note, all others negative. 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 Thorough workup, inc luding EGD, gastric emptying study and CT enterography was negative, except for the finding of large stool filling the colon. Consequently, I suspect the patient has functional abdomi nal pain, exacerbated by significant constipation (and likely IBS-C, given prolonged issues with intermittent constipation). Laxatives uptitrated and relief of constipation obtained w ith miralax and frequent lactulose, continued at home. I spoke at length with the patient a s well as both parents that it will be a disorder she will have to live with, but can improv e with control of anxiety/depression, improved mindfulness, recognition of triggers, and CBT . Broadly, I am concerned that the patient is so young (25), and accepted to permanent disa bility. If the pattern of complete focus on medical issues to the exclusion of other aspect s of life continues, her overall health is unlikely to improve. Patient/Family Goals & Expectations: Above problems discussed with the patient who understands and is agreeable with our plans. Clifton Childers MD [employer] Division of Hospital Medicine Teaching Attending I spent 45 minutes in the care of the patient on discharge day, primarily counseling regard ing the chronic management of functional abdominal pain.documented in this encounter Medications at Time of Discharge + + + +---------+ + + | Medication | Sig | Dispensed | Refills | Start | End Date | | | | | | Date | | + + + +---------+ + + | levonorgestrel | 1 Each by | | 0 | | | | (MIRENA) 20 mcg/24 | Intrauterine route | | | | | | hr Intrauterine IUD | once. May be removed | | | | | | | and replaced with a | | | | | | | new unit at anytime | | | | | | | during menstrual | | | | | | | cycle; do not leave | | | | | | | any one system in | | | | | | | place for > 5 years. | | | | | | | | | | | | + + + +---------+ + + | polyethylene | Take 17 g by mouth | 119 g | 0 | 10/25/20 | | | glycol 17 gram/dose | once daily. | | | 15 | | | oral powder | | | | | | + + + +---------+ + + documented as of this encounter Progress Notes Ewa Hayward MD - 10/24/2015 10:04 PM PST Fellow Gastroenterology Progress Note IMPRESSION: 25 year-old female s/p cholecystectomy and appendectomy, who is currently admit ruddy with recurrent episodes of abdominal pain and N/V. Her prior diagnostics studies have b een reviewed. She had an unremarkable EGD; gastric emptying study showed only mild delay (a t 2 hours she was 36% empty whereas the lower limit of normal is 40%, though she emptied com pletely by 4 hours); small bowel follow through was negative for any pathology, and CT enter ography performed yesterday was notable only for stool load suggesting constipation. With the above negative diagnostics, suspect functional GI disorder such as cyclic vomiting syndr ome. Her acute episode has now resolved and team is planning for discharge tomorrow. RECOMMENDATIONS: -- No new recommendations Please call with questions. This plan was discussed and formulated with the gastroenterology attending of record, Dr. Lulu kimball, who agrees with the above assessment and recommendations 24 hour events: Still has pain but no N/V Current Inpatient Medications Medication Dose Route Frequency acetaminophen (TYLENOL) tablet 1,000 mg 1,000 mg oral Q6H aluminum-magnesium hydroxide-simethicone (MAALOX; MYLANTA) 200-200-20 mg/5 mL suspensio n 30 mL 30 mL oral Q4H PRN heparin injection 5,000 Units 5,000 Units subcutaneous Q8H HYDROmorphone (DILAUDID) injection 0.5-1 mg 0.5-1 mg intravenous Q4H PRN ibuprofen (MOTRIN) tablet 600 mg 600 mg oral Q6H influenza vaccine (FLUZONE) (PF) IM injection (age 3 years or greater) 0.5 mL 0.5 mL i ntramuscular ONE TIME IN THE MORNING lactulose (ENULAC) liquid 20 g 30 mL oral Q2H lamoTRIgine (LAMICTAL) tablet 200 mg 200 mg oral TID memantine (NAMENDA) tablet 10 mg 10 mg oral BID omeprazole (PRILOSEC) capsule 40 mg 40 mg oral BID AC ondansetron (ZOFRAN) tablet 8 mg 8 mg oral Q8H PRN oxyCODONE (immediate release) (ROXICODONE) tablet 5-10 mg 5-10 mg oral Q4H PRN polyethylene glycol (MIRALAX) powder 17 g 17 g oral DAILY promethazine (PHENERGAN) injection 12.5 mg 12.5 mg intravenous Q6H PRN senna-docusate (SENOKOT S) 8.6-50 mg 1 tablet 1 tablet oral BID sucralfate (CARAFATE) suspension 1 g 1 g oral AC and HS Last 24 hour min/max Temp: 36.8 C (98.2 F) Temp Min: 36.8 C (98.2 F) Max: 36.9 C (98.4 F) Pulse: 80 Pulse Min: 64 Max: 80 Resp: 16 Resp Min: 14 Max: 16 BP: 106/87 mmHg BP Min: 98/47 Max: 106/87 SpO2: 93 % SpO2 Min: 93 % Max: 96 % Body mass index is 28.29 kg/(m^2). Gen: comfortable appearing, nad HEENT: sclera anicteric Abd: soft, TTP epigastrium CBC with diff last 72 hours (or 3 results) Invalid input(s): BANDPCT Chemistries: Last 72 Hours (or 3 results): Recent Labs 10/23/15 1452 10/24/15 0809 NA 137 139 K 3.9 4.0 CL 105 105 BICARB 27 30 BUN 7 7 CR 0.83 0.91 GLU 88 71 CA 8.3* 8.7 PO4 3.2 3.1 Liver Tests: Last 72 hours (or 3 results) Recent Labs 10/23/15 1452 10/24/15 0809 ALB 3.6 4.0 Lab Results Component Value Date INRPT 1.06 10/21/2015 IMAGING IMPRESSION: 1. No acute abnormalities in the abdomen or pelvis. 2. Large colonic formed stool load suggesting constipation. Subha Barbosa MD - 10/24/2015 5:00 PM PST General Internal Medicine 5 Progress Note 24 Hour Events: -No acute events, VSS -Pain relatively well-controlled on opioids -CT enterography w large stool burden in colon, otherwise wnl Current Symptoms: Feeling ok, nausea well controlled, good conversation with Dr. Childers this afternoon, th inking about discharge tomorrow Physical Examination: Last 24 hour min/max Temp: 36.8 C (98.2 F) Temp Min: 36.8 C (98.2 F) Max: 36.9 C (98.4 F) Pulse: 80 Pulse Min: 64 Max: 80 Resp: 16 Resp Min: 14 Max: 16 BP: 106/87 mmHg BP Min: 98/47 Max: 106/87 SpO2: 93 % SpO2 Min: 93 % Max: 96 % Body mass index is 28.29 kg/(m^2). Intake/Output Summary (Last 24 hours) at 10/24/15 1700 Last data filed at 10/24/15 1525 Gross per 24 hour Intake 1675 ml Output 2750 ml Net -1075 ml General: Young woman, sitting in bed, mother at bedside, NAD Lungs: Breathing easy on RA Heart: Grossly well perfused Abd: Soft, mildly distended, minimally tender to deep palpation, stable from yesterday Neuro: AOx3, no focal deficits Laboratory Interpretation: No new labs today Beta Hcg: negative Imaging Interpretation: 10/23/2014 CT Enterography IMPRESSION: 1. No acute abnormalities in the abdomen or pelvis. 2. Large colonic formed stool load suggesting constipation. Assessment and Plan Ms. Tracie Farah is a 25yo woman w a PMH of complex regional pain syndrome LLE and prior cholecystectomy who presents from OSH with acute on chronic epigastric pain, nausea, and vom iting of unclear etiology, with EGD negative and gastric emptying study only mildly delayed. #Acute on chronic abdominal pain, nausea and vomiting: Etiology unclear, but possibly funct ional abdominal pain, cyclic vomiting syndrome or some sort of small bowel obstruction. Larg e colonic stool burden/constipation, do not think this is the cause of her pain, but most li kley is not helping things -GI following, appreciate recs -OSH imaging and endoscopic reports available in paper chart -APAP, oxycodone, dilaudid for pain -PRN zofran and phenergan -More aggressive bowel regimen - start lactulose q2hrs until having BMs #Complex regional pain syndrome: Thought to be 2/2 LLE injury as a child. Followed by Dr. Katy berrios at [facility] in [place], [place], has been on a stable regimen for the past few years (intra nasal ketamine, lamictal, memantine, ibuprofen). APS consulted and they feel that it is unli rosie that these are causing her abdominal s/s, they recommend continuing her regimen. -Appreciate APS recs --> will sign off after talking with Dr. Molina today -continue memantine 28 mg BID -continue lamictal 200 mg TID -continue home ibuprofen 600 mg q 6 h prn -Per pharm, can't have intranasal ketamine here, compounded med, not able to verify concent ration #Anxiety/Depression -Hold home meds (methylphenidate, lorazepam) for now F: Regular A: As above S: None T: SQH H: Up ad shaan U: Omeprazole, sucralfate G: Well controlled wo meds Abx: None Bowel: daily miralax Code: Full DISPO: Pending clinical course This patient was seen and discussed with Dr. Childers and Dr. Moreau, who are in agreement with the assessment and plan. Lolita Ma MD, MPH Pager #[phone] PGY-1, Anesthesiology [facility] Associated attestation - Clifton Childers MD - 10/24/2015 6:53 PM PSTGeneral Medicine Attending Progress Note Author: Clifton Childers MD Hospital Day # 3 PCP: BJORN Villalpando I personally interviewed the patient, performed the bocanegra elements of the physical examinatio n, and personally formulated the assessment and plan with Dr Moreau and Dr Ma. Please s ee progress note for additional details; notable exceptions as written below. ROS as per note, all others negative. 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 I spoke at length with the patient about the results of the CT enterography (negative, asid e from large stool volume), and discussed possible etiologies of her abdominal pain. Specif ically, that I favored functional abdominal pain - that it will be a disorder she will have to live with, but can improve with control of anxiety/depression, improved mindfulness, south gnition of triggers, CBT. Both the patient and her mother seemed to understand and were ward reciative of a possible diagnosis and exclusion of serious organic pathology. Plan to uptit rate bowel regimen tonight, wean narcotics, and discharge in the afternoon. Patient/Family Goals & Expectations: Above problems discussed with the patient who understands and is agreeable with our plans. Clifton Childers MD [employer] Division of Hospital Medicine Teaching Attending I spent 45 minutes int eh care of this patient, >50% at bedside counseling regarding therap y for functional abdominal pain, constipation, anxiety.Ewa Hayward MD - 10/23/2015 3:16 PM PST Fellow Gastroenterology Progress Note IMPRESSION: 25 year-old female with recurrent episodes of abdominal pain, N/V with unremark able EGD and gastric emptying study. Differential diagnosis includes intermittent obstructio ns, medication side effect (though unusual to feel well in between episodes without medicati on changes), or functional GI disorder such as cyclic vomiting syndrome. EGD was unremarkabl e as below, and CT enterography is pending. We also note that the tenderness in her abdomen is superficial and very localized. Althoug h this would not explain the N/V, question neuroma or abdominal wall pain. Would ask pain te am to consider local lidocaine injection. RECOMMENDATIONS: -- F/U CT enterography. We will review this and all of her prior imaging with radiology to donte -- Pain team to consider local lidocaine injection for superficial point tenderness This plan was discussed and formulated with the gastroenterology attending of record, Dr. Lulu kimball, who agrees with the above assessment and recommendations 24 hour events: No vomiting. Has now gone two days without emesis. EGD report received and reviewed: Date: 10/15/2015 Endoscopist: Zeeshan Saenz MD (general surgery) Sedation: not noted Findings: -- Normal esophagus. No morse's. No esophagitis. Mid-esophageal biopsies taken. -- At the cardia, next to the GE junction, she had a patch of erythema c/w repeated vomitin g. That are was irrigated carefully and I did not see any ulceration. We went ahead and bio psied that area for pathologic review. -- The stomach was otherwise normal. Biopsies taken. -- Normal duodenum, biopsies taken Current Inpatient Medications Medication Dose Route Frequency acetaminophen (TYLENOL) tablet 1,000 mg 1,000 mg oral Q6H aluminum-magnesium hydroxide-simethicone (MAALOX; MYLANTA) 200-200-20 mg/5 mL suspensio n 30 mL 30 mL oral Q4H PRN heparin injection 5,000 Units 5,000 Units subcutaneous Q8H HYDROmorphone (DILAUDID) injection 0.5-1 mg 0.5-1 mg intravenous Q4H PRN ibuprofen (MOTRIN) tablet 600 mg 600 mg oral Q6H influenza vaccine (FLUZONE) (PF) IM injection (age 3 years or greater) 0.5 mL 0.5 mL i ntramuscular ONE TIME IN THE MORNING lactulose (ENULAC) liquid 20 g 30 mL oral TID lamoTRIgine (LAMICTAL) tablet 200 mg 200 mg oral TID memantine (NAMENDA) tablet 10 mg 10 mg oral BID omeprazole (PRILOSEC) capsule 40 mg 40 mg oral BID AC ondansetron (ZOFRAN) tablet 8 mg 8 mg oral Q8H PRN oxyCODONE (immediate release) (ROXICODONE) tablet 5-10 mg 5-10 mg oral Q4H PRN polyethylene glycol (MIRALAX) powder 17 g 17 g oral DAILY promethazine (PHENERGAN) injection 12.5 mg 12.5 mg intravenous Q6H PRN senna-docusate (SENOKOT S) 8.6-50 mg 1 tablet 1 tablet oral DAILY sucralfate (CARAFATE) suspension 1 g 1 g oral AC and HS Last 24 hour min/max Temp: 36.8 C (98.3 F) Temp Min: 36.7 C (98.1 F) Max: 36.8 C (98.3 F) Pulse: 59 Pulse Min: 59 Max: 72 Resp: 18 Resp Min: 12 Max: 18 BP: (!) 92/38 mmHg BP Min: 92/38 Max: 113/61 SpO2: 97 % SpO2 Min: 97 % Max: 100 % Body mass index is 28.29 kg/(m^2). Gen: comfortable appearing, nad HEENT: sclera anicteric Abd: soft, TTP epigastric region CBC with diff last 72 hours (or 3 results) Recent Labs 10/21/152138 WBC 8.22 HB 13.4 HCT 40.3 PLT 250 Chemistries: Last 72 Hours (or 3 results): Recent Labs 10/21/152138 NA 139 K 3.8 CL 106 BICARB 29 BUN 4* CR 0.84 GLU 89 CA 9.0 MG 2.2 Liver Tests: Last 72 hours (or 3 results) Recent Labs 10/21/152138 AST 25 ALT 50 TBILI 0.5 AP 81 ALB 4.2 TP 7.4 Lab Results Component Value Date INRPT 1.06 10/21/[address] pending ubha Ma M D - 10/23/2015 12:58 PM PST General Internal Medicine 5 Progress Note 24 Hour Events: -No acute events, VSS -Continued 06/23 pain on max ketamine gtt -> d/c'd overnight, back on opioids -GI consulted, recommend CT enterography -[facility] , Dr. Madrid in contact with Dr. Moreau, APS will contact today -Nausea but no vomiting, having BMs Current Symptoms: Feeling relatively well, some nausea this morning, better with phenergan, reporting recent discharge from breasts, requests test Physical Examination: Last 24 hour min/max Temp: 36.8 C (98.3 F) Temp Min: 36.7 C (98.1 F) Max: 36.8 C (98.3 F) Pulse: 59 Pulse Min: 59 Max: 72 Resp: 18 Resp Min: 12 Max: 18 BP: (!) 92/38 mmHg BP Min: 92/38 Max: 113/61 SpO2: 97 % SpO2 Min: 97 % Max: 100 % Body mass index is 28.29 kg/(m^2). Intake/Output Summary (Last 24 hours) at 10/23/15 1301 Last data filed at 10/23/15 0300 Gross per 24 hour Intake 110 ml Output 1850 ml Net -1740 ml General: Young woman, sitting in bed, tired but well appearing, NAD Lungs: CTAB Heart: RRR, no murmurs, no pedal edema Abd: Soft, mildly distended, minimally tender to deep palpation, some mild point tenderness in the lower quadrants and at epigastric region Neuro: AOx3, no focal deficits Laboratory Interpretation: No new labs today Imaging Interpretation: No new imaging Assessment and Plan Ms. Tracie Farah is a 25yo woman w a PMH of complex regional pain syndrome LLE and prior cholecystectomy who presents from OSH with acute on chronic epigastric pain, nausea, and vom iting of unclear etiology, with EGD negative and gastric emptying study only mildly delayed. #Acute on chronic abdominal pain, nausea and vomiting: Etiology unclear, but possibly funct ional abdominal pain, cyclic vomiting syndrome or some sort of small bowel obstruction. -GI following, appreciate recs -Obtain OSH imaging and endoscopic reports -CT enterography today -F/u test -APAP, oxycodone, dilaudid for pain -PRN zofran and phenergan #Complex regional pain syndrome: Thought to be 2/2 LLE injury as a child. Followed by Dr. Katy berrios at [facility] in [place], [place], has been on a stable regimen for the past few years (intra nasal ketamine, lamictal, memantine, ibuprofen). APS consulted and they feel that it is unli rosie that these are causing her abdominal s/s, they recommend continuing her regimen. -Appreciate APS recs --> will sign off after talking with Dr. Molina today -continue memantine 28 mg BID -continue lamictal 200 mg TID -Restart home ibuprofen 600 mg q 6 h prn -Pt working on bringing intranasal ketamine from home (not on formulary here) #Anxiety/Depression -Hold home meds (methylphenidate, lorazepam) for now -1x dose of hydroxizine this a.m. For anxiety F: Regular A: As above S: None T: SQH H: Up ad shaan U: Omeprazole, sucralfate G: Well controlled wo meds Abx: None Bowel: daily miralax Code: Full DISPO: Pending clinical course This patient was seen and discussed with Dr. Childers and Dr. Moreau, who are in agreement with the assessment and plan. Lolita Ma MD, MPH Pager #[phone] PGY-1, Anesthesiology [facility] Associated attestation - Clifton Childers MD - 10/23/2015 4:10 PM PSTGeneral Medicine Attending Progress Note Author: Clifton Childers MD Hospital Day # 2 PCP: BJORN Villalpando I personally interviewed the patient, performed the bocanegra elements of the physical examinatio n, and personally formulated the assessment and plan with Dr Moreau and Dr Ma. Please s ee progress note for additional details; notable exceptions as written below. ROS as per note, all others negative. 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 PO intake improving with decreased nausea. IV ketamine infusion overnight not beneficial f or her abdominal pain and, because her prior regimen for CPRS was satisfactory, will revert to that treatment. Currently treating her abdominal symptoms with prn opioids and antiemeti cs while workup is completed. CT enterography today as no recent prior cross sectional imag ing. High likelihood of functional abdominal pain and patient with multiple risk factors fo r refractory course - reinforcement of the sick role, prolonged symptoms without improvement , negative life events, lack of any distracting activities/pursuits in her life and co-exist ent anxiety. If imaging negative will attempt to wean opioids. I would like the patient to establish in residential counseling and/or CBT as an outpatient if willing. Patient/Family Goals & Expectations: Above problems discussed with the patient who understands and is agreeable with our plans. Clifton Childers MD [employer] Division of Hospital Medicine Teaching Attending I spent 40 minutes in the care of this patient >50% in counseling regarding abdominal pain/ workup, chronic pain, and coordination with GI and anesthesia. Aba Dorman MD - 10/23/2015 7:39 AM PSTFormatting of this note might be different fr om the original. INPATIENT ADULT PAIN SERVICE FOLLOW UP NOTE Date of Service: 10/23/2015 Author: Aba Dorman MD Pain Service Attending Physician: Ulices Mckinley MD Main Complaint: CRPS of LLE, chronic N/V Interval History: Tracie Farah is a 25 y.o. female with CRPS admitted for acute o n chronic abdominal pain, nausea, and vomiting with CRPS that is well controlled on an outpa tient regimen that mainly consists of memantine and ketamine now started on a ketamine infus ion in order to allow minimal opiod needs. Interval events since last Adult Pain Service visit: - titrated up to 40mg/h with no relief in pain - primary team discontinued ketamine infusion and restarted oxycodone and hydromorphone IV for breakthrough pain - pain has been better controlled since starting this regimen Ms. Farah was last seen by APS yesterday. At that time, our recommendations were: 1. Continue acetaminophen, lamotrogine, memantine 2. Hold ibuprofin given abdominal discomfort 3. Start ketamine infusion in hoda of intranasal ketamine to avoid opiod usage, per patient request 4. Discontinue oxycodone and hydromorphone 5. As above, would not stop CRPS treatment over concern for current symptomatology given di fficult course with CRPS, current success with current regimen, and lack of evidence support ing these sx being associated with memantine or intranasal ketamine 6. Will continue to follow These recommendations were partially implemented. Ms. Farah complains of constant midline abdominal pain, with radiation to the midline b ack..Also complaining of her chronic LLE pain related to CRPS. Since her last evaluation, Melissa Farah reports that her pain has decreased. Her pain score at rest is 6-7/10. With ac tivity, her pain score is 9/10. Specific activities that exacerbate Ms. Farah's pain inc lude deep breathing, coughing, moving in bed, getting to a chair and walking. Her pain is i mproved by medication. Ms. Farah is partially satisfied with current pain management effo rts. Associated symptoms include: nausea without vomiting Ms. Farah has noticed no side effects. Pertinent review of Systems: General: negative Eyes: negative Ears, Nose, Throat: negative Respiratory: pain with deep breathing Musculoskeletal: negative Cardiovascular: negative Gastrointestinal: nausea/vomiting but able to eat Neurologic: LLE numbness/tingling Skin: negative Psychological: denies depression, good coping mechanism Heme/Lymphatic: negative Endocrine: negative State Director: negative Past Medical History: History of chronic or preoperative pain: yes: location: left lower extremity. Typical inten sity 04/23 Prior to hospitalization: Opioids: None Other analgesics: ibuprofin 600mg q6hr PRN, intranasal ketamine Other psychoactive medications: memantine 28mg BID, lamictal 200mg TID, lorazepam 2mg Current Medications: Scheduled Medications Medication Dose Route Frequency Last Rate acetaminophen (TYLENOL) tablet 1,000 mg 1,000 mg oral Q6H heparin injection 5,000 Units 5,000 Units subcutaneous Q8H influenza vaccine (FLUZONE) (PF) IM injection (age 3 years or greater) 0.5 mL 0.5 mL i ntramuscular ONE TIME IN THE MORNING lactulose (ENULAC) liquid 20 g 30 mL oral TID lamoTRIgine (LAMICTAL) tablet 200 mg 200 mg oral TID memantine (NAMENDA) tablet 10 mg 10 mg oral BID omeprazole (PRILOSEC) capsule 40 mg 40 mg oral BID AC polyethylene glycol (MIRALAX) powder 17 g 17 g oral DAILY senna-docusate (SENOKOT S) 8.6-50 mg 1 tablet 1 tablet oral DAILY sucralfate (CARAFATE) suspension 1 g 1 g oral AC and HS PRN Medications Medication Dose Route Frequency Last Rate aluminum-magnesium hydroxide-simethicone (MAALOX; MYLANTA) 200-200-20 mg/5 mL suspensio n 30 mL 30 mL oral Q4H PRN HYDROmorphone (DILAUDID) injection 0.5-1 mg 0.5-1 mg intravenous Q4H PRN ondansetron (ZOFRAN) tablet 8 mg 8 mg oral Q8H PRN oxyCODONE (immediate release) (ROXICODONE) tablet 5-10 mg 5-10 mg oral Q4H PRN Continuous Medications Medication Dose Route Frequency Last Rate The above medication list includes the following analgesics: Opioids: Hydromorphone IV 5mg/24hrs, oxycodone 25mg/24hrs Other analgesics: Acetaminophen PO 3000mg/24hrs, ketamine infusion - currently 40mg/hr Other psychoactive medications: None Allergies: Allergies Allergen Reactions Morphine Anaphylaxis Physical Exam: BP 113/61 | Pulse 72 | Temp 36.7 C (98.1 F) | RR 18 | Ht 1.626 m (5' 4") | Wt 74.8 kg ( 164 lb 14.5 oz) | SpO2 99% | BMI 28.29 kg/(m^2) Systolic (24hrs), Av mmHg, Min:107 mmHg, Max:113 mmHg Diastolic (24hrs), Av mmHg, Min:49 mmHg, Max:61 mmHg Pulse Min: 72 Max: 72 Temp Min: 36.7 C (98.1 F) Max: 36.7 C (98.1 F) Resp Min: 12 Max: 18 SpO2 Min: 99 % Max: 100 % General appearance: healthy, alert, mild distress and cooperative HEENT: wnl Neck: wnl Cardiovascular: Heart sounds: regular, normal S2, S2, no murmurs, rubs, or gallops Chest: clear to auscultation bilaterally Abdomen: + BS, TTP Genitourinary Female: Deferred Rectal: deferred Musculoskeletal: normal tone and bulk Extremities: LLE appears the same as RLE Neurological: grossly intact, VICTORIA Skin: negative Psych: non focal Lymphatic: deferred Impression: Ms. Farah is a 25 y.o. female with CRPS admitted for acute on chronic abdominal pain, na usea, and vomiting. Appears that Ms. Farah is optimized on a regimen that us working well for her which consists of intranasal ketamine, memantine, and ibuprofen. We do not feel gladys t her CRPS regimen is likely to be contributing to her presenting symptoms. While inpatient we started a ketamine infusion for its opiod sparing effect given her current complaints of N/V and opiods potential to exacerbate this, her desire to avoid opiods, and success with ke tamine intranasal in the past. This was not effective unfortunately and she has been restart ed on an oral and IV opiod regimen. Diagnosis: 1. CRPS 2. Acute on chronic N/V with FTT Recommendations: 1. Continue acetaminophen, memantine 2. Continue oxycodone and hydromorphone realizing that these may be actually worsening her symptoms even if they cause immediate relief to the pain 3. Agree with discontinuing the ketamine infusion 4. Restart intranasal ketamine as this is a home medication which has been effective for he r CRPS in the pastm [facility] pharmacy does not carry this so we are trying to arrange for her to take her home medication via pharmacy approval 5. APS will sign off but please call with questions/concerns Aba Dorman MD, PGY 3 [employer] [place]-2 APS Pager: [phone] BILLING INFORMATION Deferred to attending physician. Ms. Farah was evaluated with Ulices Mckinley MD. Associated attestation - Ulices Mckinley Md - 10/23/2015 4:54 PM PSTI saw and ev aluated Ms. Tracie Farah with Resident: Dr. Aba Dorman, who conducted the initia l history and physical examination. I personally interviewed the patient and performed the pertinent parts of the physical examination. I have reviewed the resident s note and I a gree with the plan of care as documented. I have additional comments, as follows. Agree with increased sensitive upon light palpatio n of epigastric scar from old lap cholecystectomy. Patient states she has had this pain for years. I do not believe this pain is what brought her to hospital with a more diffused upper abdominal pain, nausea and vomiting and intolerance to food. Work up by primary care team. Abdominal CT pending. I do not plan to follow up at this point. Please contact APS (#[phone]) if further assistance is needed. Ulices Lopez MD BILLING INFORMATION [facility] DEPARTMENT: [phone] Place of Service:- Inpatient Date of Service: 10/23/2015 CSN: [id number] Suggested Modifier: GC - Resident Involved Suggested CPT: 83524 - Follow up visit (includes PNB) - 15 min - low complexity Prolonged service: n/a Counseling and Coordination: n/a Milton Moreau MD - 10/22/2015 6:58 PM PSTPOST ROUND ADDENDUM: Examination: General: alert, appears uncomfortable due to pain. Chest; CTA b/l CV: RRR, Abd; Unable to assess as pt was painful, but later not found to have ttp over epigastrium a nd lower chest. Extremities: wwp, no edema PLAN: - APS evaluation--> ketamine infusion started and stopped narcotics and NSAIDs - GI evaluation- awaiting final recs Later today recd call from Dr. Madrid from [facility]. She has known pt for many yea rs and suggested ketamine and propofol gtt. Updated her on APS recommendations. She will hav e her office fax her clinic records to us. Pt was seen with Dr. Childers. Milton Moreau MD PGY-3, Internal Medicine Pager [phone] Pro Edwards RN - 10/22/2015 10:06 AM PSTActing as scribe for the UR Committee Physician named below. The primary medical team for this patient and the [facility] UR Committee have agreed after furth er study that an inpatient admission was not medically necessary. This hospital stay is con verted to an outpatient stay through use of Medicare Condition Code 44. The patient was not ified of this change in writing. The providers involved in this decision were: For patient s primary medical team: Melissa Childers MD For [facility] UR Committee: Kerry HARRIS RN CM ACM documented in this encoun ter Plan of Treatment Not on filedocumented as of this encounter Procedures + +--------+ + + + | Procedure Name | Priori | Date/Time | Associated Diagnosis | Comments | | | ty | | | | + +--------+ + + + | RENAL FUNCTION SET | Routin | 10/24/2015 | | Results for this | | (NA,K,CL,CO2,BUN,CRE | e | 8:09 AM | | procedure are in the | | AT,GLUC,CA,PHOS,ALB | | PST | | results section. | | ) | | | | | + +--------+ + + + | CT ABDOMEN AND | Routin | 10/23/2015 | | Results for this | | PELVIS W IV CONTRAST | e | 5:16 PM | | procedure are in the | | | | PST | | results section. | + +--------+ + + + | RENAL FUNCTION SET | Routin | 10/23/2015 | | Results for this | | (NA,K,CL,CO2,BUN,CRE | e | 2:52 PM | | procedure are in the | | AT,GLUC,CA,PHOS,ALB | | PST | | results section. | | ) | | | | | + +--------+ + + + | LIPASE, PLASMA | Routin | 10/23/2015 | | Results for this | | | e | 2:52 PM | | procedure are in the | | | | PST | | results section. | + +--------+ + + + | HCG QUAL, URINE | Urgent | 10/23/2015 | | Results for this | | | | 12:42 PM | | procedure are in the | | | | PST | | results section. | + +--------+ + + + | CBC (HEMOGRAM) ONLY | Routin | 10/21/2015 | | Results for this | | | e | 9:39 PM | | procedure are in the | | | | PST | | results section. | + +--------+ + + + | INR | Routin | 10/21/2015 | | Results for this | | | e | 9:39 PM | | procedure are in the | | | | PST | | results section. | + +--------+ + + + | COMPLETE METABOLIC | Routin | 10/21/2015 | | Results for this | | SET | e | 9:39 PM | | procedure are in the | | (NA,K,CL,CO2,BUN,CRE | | PST | | results section. | | AT,GLUC,CA,AST,ALT,B | | | | | | ELENITA TOTAL,ALK | | | | | | PHOS,ALB,PROT TOTAL) | | | | | + +--------+ + + + | CBC ONLY | Routin | 10/21/2015 | | Results for this | | | e | 9:39 PM | | procedure are in the | | | | PST | | results section. | + +--------+ + + + | MAGNESIUM, PLASMA | Routin | 10/21/2015 | | Results for this | | | e | 9:39 PM | | procedure are in the | | | | PST | | results section. | + +--------+ + + + documented in this encounter Results RENAL FUNCTION SET (NA,K,CL,CO2,BUN,CREAT,GLUC,CA,PHOS,ALB ) (10/24/2015 8:09 AM PST) + +---------+ + + + | Component | Value | Ref Range | Performed | Pathologist | | | | | At | Signature | + +---------+ + + + | GLUCOSE, | 71 | 60 - 99 mg/dL | [facility] | | | PLASMA | | | LABORATORY | | | (LAB) | | | SERVICES, | | | | | | CORE | | + +---------+ + + + | BUN, PLASMA | 7 | 6 - 20 mg/dL | [facility] | | | (LAB) | | | LABORATORY | | | | | | SERVICES, | | | | | | CORE | | + +---------+ + + + | CREATININE | 0.91 | 0.60 - 1.10 | [facility] | | | PLASMA | | mg/dL | LABORATORY | | | (LAB) | | | SERVICES, | | | | | | CORE | | + +---------+ + + + | EGFR | >60 | >60 mL/min | [facility] | | | - | | | LABORATORY | | | AFGHAN | | | SERVICES, | | | | | | CORE | | + +---------+ + + + | EGFR NON | >60 | >60 mL/min | [facility] | | | -KEY | | | LABORATORY | | | RICAN | | | SERVICES, | | | | | | CORE | | + +---------+ + + + | SODIUM, | 139 | 136 - 145 | [facility] | | | PLASMA | | mmol/L | LABORATORY | | | (LAB) | | | SERVICES, | | | | | | CORE | | + +---------+ + + + | POTASSIUM, | 4.0 | 3.4 - 5.0 | [facility] | | | PLASMA | | mmol/L | LABORATORY | | | (LAB) | | | SERVICES, | | | | | | CORE | | + +---------+ + + + | CHLORIDE, | 105 | 97 - 108 mmol/L | [facility] | | | PLASMA | | | LABORATORY | | | (LAB) | | | SERVICES, | | | | | | CORE | | + +---------+ + + + | TOTAL CO2, | 30 | 21 - 32 mmol/L | [facility] | | | PLASMA | | | LABORATORY | | | (LAB) | | | SERVICES, | | | | | | CORE | | + +---------+ + + + | CALCIUM, | 8.7 | 8.6 - 10.2 | [facility] | | | PLASMA | | mg/dL | LABORATORY | | | (LAB) | | | SERVICES, | | | | | | CORE | | + +---------+ + + + | ALBUMIN, | 4.0 | 3.5 - 4.7 g/dL | [facility] | | | PLASMA | | | LABORATORY | | | (LAB) | | | SERVICES, | | | | | | CORE | | + +---------+ + + + | PHOSPHORUS, | 3.1 | 2.4 - 4.7 mg/dL | [facility] | | | PLASMA | | | LABORATORY | | | (LAB) | | | SERVICES, | | | | | | CORE | | + +---------+ + + + | POTASSIUM | No Hemo | | [facility] | | | CMNT | | | LABORATORY | | | | | | SERVICES, | | | | | | CORE | | + +---------+ + + + | ANION GAP | 4 | mmol/L | [facility] | | | | | | LABORATORY | | | | | | SERVICES, | | | | | | CORE | | + +---------+ + + + | ANION | 4 | 4 - 11 mmol/L | [facility] | | | GAP(ALB | | | LABORATORY | | | CORRECTED) | | | SERVICES, | | | | | | CORE | | + +---------+ + + + + + | Specimen | + + | Blood - Blood | | (substance) | + + + + + | Narrative | Performed At | + + + | GFR is estimated using the MDRD equation recommended by the | [facility] | | National Kidney Disease Education Program. Estimated GFR | LABORATORY | | Interpretive Information: <60 mL/min/1.73 sq m | SERVICES, CORE | | Chronic Kidney Disease <15 mL/min/1.73 sq m | | | Kidney Failure Estimated GFR greater that 60 mL/min/1.73 sq m is of | | | limited clinical value. The MDRD equation is not valid in the | | | following situations: - Patients under 18 years of age - Severe | | | malnutrition or obesity - Vegetarian diet - Rapidly changing kidney | | | function | | + + + + + + + + | Performing | Address | City/State/Zipcode | Phone Number | | Organization | | | | + + + + + | [facility] | [address] | [place] [address] | | | SERVICES, CORE | [address] | | | + + + + + CT ABDOMEN AND PELVIS W IV CONTRAST (10/23/2015 5:16 PM PST) + + + + + + | Component | Value | Ref Range | Performed | Pathologist | | | | | At | Signature | + + + + + + | CT ABDOMEN | EXAM: CT of the abdomen | | | | | & PELVIS W | and pelvis with contrast | | | | | CONTRAST | HISTORY: Abdominal | | | | | | pain, nausea and | | | | | | vomiting. COMPARISON: | | | | | | None available. | | | | | | TECHNIQUE: CT of the | | | | | | abdomen and pelvis with | | | | | | 150 mL of Omnipaque 350 | | | | | | non-ioniciodinated | | | | | | intravenous contrast. | | | | | | Coronal and sagittal | | | | | | reformats were created. | | | | | | FINDINGS: LOWER THORAX: | | | | | | Mild bilateral dependent | | | | | | atelectasis. Lung bases | | | | | | otherwise clear. LIVER: | | | | | | Focal fat infiltration | | | | | | along the fissure for | | | | | | the falciform | | | | | | ligament.BILIARY: | | | | | | Gallbladder surgically | | | | | | absent. Mild central | | | | | | intrahepatic | | | | | | biliarydilation | | | | | | presumably related to | | | | | | post cholecystectomy | | | | | | status.PANCREAS: | | | | | | Unremarkable. SPLEEN: | | | | | | Unremarkable.ADRENALS: | | | | | | Unremarkable.KIDNEYS/URE | | | | | | TERS: | | | | | | Unremarkable.PELVIC | | | | | | ORGANS/BLADDER: Normal | | | | | | urinary bladder. IUD | | | | | | central within | | | | | | theendometrial canal. | | | | | | Ovaries normal. GI | | | | | | TRACT: Large colonic | | | | | | formed stool load. | | | | | | Surgical changes near | | | | | | the ileocecaljunction | | | | | | likely from prior | | | | | | appendectomy. No | | | | | | abnormal small or large | | | | | | boweldilation or | | | | | | inflammation.PERITONEUM: | | | | | | No free air or fluid. | | | | | | LYMPH NODES: No | | | | | | lymphadenopathy.VESSELS: | | | | | | Unremarkable. BONES AND | | | | | | SOFT TISSUES: | | | | | | Unremarkable. | | | | | | IMPRESSION: 1. No acute | | | | | | abnormalities in the | | | | | | abdomen or pelvis.2. | | | | | | Large colonic formed | | | | | | stool load suggesting | | | | | | constipation. Attending | | | | | | Radiologists: JOYCE | | | | | | INOCENTE ADDISONuthor: | | | | | | RUBY ALLRED MD I | | | | | | personally reviewed the | | | | | | images and, if | | | | | | necessary, edited the | | | | | | report. I agreewith the | | | | | | report as now presented. | | | | | | | | | | | | Final/Electronically | | | | | | signed / JOYCE ADDISON | | | | | | 10/24/2015 13:08 PM | | | | | | Pending final approval | | | | | | / RUBY ALLRED | | | | | | 10/24/2015 12:21 PM | | | | | | Preliminary / | | | | | | RUBY ALLRED | | | | | | 10/24/2015 8:20 AM | | | | + + + + + + + + | Specimen | + + | | + + + +---------+ + + | Performing | Address | City/State/Zipcode | Phone Number | | Organization | | | | + +---------+ + + | [facility] DEPARTMENT OF | | | | | RADIOLOGY | | | | + +---------+ + + LIPASE, PLASMA (10/23/2015 2:52 PM PST) + +--------+ + + + | Component | Value | Ref Range | Performed | Pathologist | | | | | At | Signature | + +--------+ + + + | LIPASE | 92 (L) | 152 - 353 U/L | [facility] | | | (LAB) | | | LABORATORY | | | | | | SERVICES, | | | | | | CORE | | + +--------+ + + + + + | Specimen | + + | Blood - Blood | | (substance) | + + + + + | Narrative | Performed At | + + + | STAT | [facility] | | | LABORATORY | | | [facility] | + + + + + + + + | Performing | Address | City/State/Zipcode | Phone Number | | Organization | | | | + + + + + | [facility] | [address] | [place] [address] | | | SERVICESLILLIAN | [address] | | | + + + + + RENAL FUNCTION SET (NA,K,CL,CO2,BUN,CREAT,GLUC,CA,PHOS,ALB ) (10/23/2015 2:52 PM PST) + +---------+ + + + | Component | Value | Ref Range | Performed | Pathologist | | | | | At | Signature | + +---------+ + + + | GLUCOSE, | 88 | 60 - 99 mg/dL | [facility] | | | PLASMA | | | LABORATORY | | | (LAB) | | | SERVICES, | | | | | | CORE | | + +---------+ + + + | BUN, PLASMA | 7 | 6 - 20 mg/dL | [facility] | | | (LAB) | | | LABORATORY | | | | | | SERVICES, | | | | | | CORE | | + +---------+ + + + | CREATININE | 0.83 | 0.60 - 1.10 | [facility] | | | PLASMA | | mg/dL | LABORATORY | | | (LAB) | | | SERVICES, | | | | | | CORE | | + +---------+ + + + | EGFR | >60 | >60 mL/min | [facility] | | | - | | | LABORATORY | | | AFGHAN | | | SERVICES, | | | | | | CORE | | + +---------+ + + + | EGFR NON | >60 | >60 mL/min | [facility] | | | -KEY | | | LABORATORY | | | RICAN | | | SERVICES, | | | | | | CORE | | + +---------+ + + + | SODIUM, | 137 | 136 - 145 | [facility] | | | PLASMA | | mmol/L | LABORATORY | | | (LAB) | | | SERVICES, | | | | | | CORE | | + +---------+ + + + | POTASSIUM, | 3.9 | 3.4 - 5.0 | [facility] | | | PLASMA | | mmol/L | LABORATORY | | | (LAB) | | | SERVICES, | | | | | | CORE | | + +---------+ + + + | CHLORIDE, | 105 | 97 - 108 mmol/L | [facility] | | | PLASMA | | | LABORATORY | | | (LAB) | | | SERVICES, | | | | | | CORE | | + +---------+ + + + | TOTAL CO2, | 27 | 21 - 32 mmol/L | [facility] | | | PLASMA | | | LABORATORY | | | (LAB) | | | SERVICES, | | | | | | CORE | | + +---------+ + + + | CALCIUM, | 8.3 (L) | 8.6 - 10.2 | [facility] | | | PLASMA | | mg/dL | LABORATORY | | | (LAB) | | | SERVICES, | | | | | | CORE | | + +---------+ + + + | ALBUMIN, | 3.6 | 3.5 - 4.7 g/dL | [facility] | | | PLASMA | | | LABORATORY | | | (LAB) | | | SERVICES, | | | | | | CORE | | + +---------+ + + + | PHOSPHORUS, | 3.2 | 2.4 - 4.7 mg/dL | [facility] | | | PLASMA | | | LABORATORY | | | (LAB) | | | SERVICES, | | | | | | CORE | | + +---------+ + + + | POTASSIUM | No Hemo | | [facility] | | | CMNT | | | LABORATORY | | | | | | SERVICES, | | | | | | CORE | | + +---------+ + + + | ANION GAP | 5 | mmol/L | [facility] | | | | | | LABORATORY | | | | | | SERVICES, | | | | | | CORE | | + +---------+ + + + | ANION | 6 | 4 - 11 mmol/L | [facility] | | | GAP(ALB | | | LABORATORY | | | CORRECTED) | | | SERVICES, | | | | | | CORE | | + +---------+ + + + + + | Specimen | + + | Blood - Blood | | (substance) | + + + + + | Narrative | Performed At | + + + | STAT GFR is estimated using the MDRD equation recommended by the | [facility] | | National Kidney Disease Education Program. Estimated GFR | LABORATORY | | Interpretive Information: <60 mL/min/1.73 sq m | SERVICES, CORE | | Chronic Kidney Disease <15 mL/min/1.73 sq m | | | Kidney Failure Estimated GFR greater that 60 mL/min/1.73 sq m is of | | | limited clinical value. The MDRD equation is not valid in the | | | following situations: - Patients under 18 years of age - Severe | | | malnutrition or obesity - Vegetarian diet - Rapidly changing kidney | | | function | | + + + + + + + + | Performing | Address | City/State/Zipcode | Phone Number | | Organization | | | | + + + + + | [facility] | [address] | [place] [address] | | | SERVICES, CORE | [address] | | | + + + + + HCG QUAL, URINE (10/23/2015 12:42 PM PST) + + + + + + | Component | Value | Ref Range | Performed | Pathologist | | | | | At | Signature | + + + + + + | HCG QUAL | NegativeComment: HCG= | mIU/mL | [facility] | | | URINE | <20mIU/mL. | | LABORATORY | | | | | | SERVICES, | | | | | | CORE | | + + + + + + + + | Specimen | + + | Urine - Urine | | (substance) | + + + + + + + | Performing | Address | City/State/Zipcode | Phone Number | | Organization | | | | + + + + + | [facility] | [address] | [place] [address] | | | SERVICES, CORE | [address] | | | + + + + + CBC (HEMOGRAM) ONLY (10/21/2015 9:39 PM PST) + +---------+ + + + | Component | Value | Ref Range | Performed | Pathologist | | | | | At | Signature | + +---------+ + + + | WHITE CELL | 8.22 | 4.40 - 11.00 | [facility] | | | COUNT | | K/cu mm | LABORATORY | | | | | | SERVICES, | | | | | | CORE | | + +---------+ + + + | RED CELL | 4.30 | 4.00 - 5.20 | [facility] | | | COUNT | | M/cu mm | LABORATORY | | | | | | SERVICES, | | | | | | CORE | | + +---------+ + + + | HEMOGLOBIN | 13.4 | 12.0 - 16.0 | [facility] | | | | | g/dL | LABORATORY | | | | | | SERVICES, | | | | | | CORE | | + +---------+ + + + | HEMATOCRIT | 40.3 | 36.0 - 46.0 % | [facility] | | | | | | LABORATORY | | | | | | SERVICES, | | | | | | CORE | | + +---------+ + + + | MCV | 93.7 | 80.0 - 96.0 fL | [facility] | | | | | | LABORATORY | | | | | | SERVICES, | | | | | | CORE | | + +---------+ + + + | MCHC | 33.3 | 33.0 - 35.5 | [facility] | | | | | g/dL | LABORATORY | | | | | | SERVICES, | | | | | | CORE | | + +---------+ + + + | RDW SD | 39.2 | 35.1 - 46.3 fL | [facility] | | | | | | LABORATORY | | | | | | SERVICES, | | | | | | CORE | | + +---------+ + + + | PLATELET | 250 | 150 - 400 K/cu | [facility] | | | COUNT | | mm | LABORATORY | | | | | | SERVICES, | | | | | | CORE | | + +---------+ + + + | MPV | 8.9 (L) | 9.7 - 12.3 fL | [facility] | | | | | | LABORATORY | | | | | | SERVICES, | | | | | | CORE | | + +---------+ + + + | NRBC% | 0.0 | 0.0 - 0.3 % | [facility] | | | | | | LABORATORY | | | | | | SERVICES, | | | | | | CORE | | + +---------+ + + + | NRBC# | 0.00 | 0.00 - 0.02 | [facility] | | | | | K/cu mm | LABORATORY | | | | | | SERVICES, | | | | | | CORE | | + +---------+ + + + + + | Specimen | + + | Blood - Blood | | (substance) | + + + + + + + | Performing | Address | City/State/Zipcode | Phone Number | | Organization | | | | + + + + + | [facility] | [address] | [place] [address] | | | SERVICES, CORE | [address] | | | + + + + + INR (10/21/2015 9:39 PM PST) + +-------+ + + + | Component | Value | Ref Range | Performed | Pathologist | | | | | At | Signature | + +-------+ + + + | INR | 1.06 | 0.90 - 1.20 INR | [facility] | | | | | | LABORATORY | | | | | | SERVICES, | | | | | | CORE | | + +-------+ + + + + + | Specimen | + + | Blood - Blood | | (substance) | + + + + + | Narrative | Performed At | + + + | INR Therapeutic ranges for full anticoagulation: INR for | [facility] | | Venous Thromboembolism (2.0 - 3.0) INR INR for | LABORATORY | | most patients with mech. valves (2.5 - 3.5) INR | SERVICES, CORE | + + + + + + + + | Performing | Address | City/State/Zipcode | Phone Number | | Organization | | | | + + + + + | [facility] | [address] | [place] [address] | | | SERVICES, CORE | [address] | | | + + + + + MAGNESIUM, PLASMA (10/21/2015 9:39 PM PST) + +-------+ + + + | Component | Value | Ref Range | Performed | Pathologist | | | | | At | Signature | + +-------+ + + + | MAGNESIUM,P | 2.2 | 1.8 - 2.5 mg/dL | [facility] | | | LASMA | | | LABORATORY | | | | | | [place], | | | | | | [place] | | + +-------+ + + + + + | Specimen | + + | Blood - Blood | | (substance) | + + + + + + + | Performing | Address | City/State/Zipcode | Phone Number | | Organization | | | | + + + + + | [facility] | [address] | [place] [address] | | | SERVICES, CORE | [address] | | | + + + + + COMPLETE METABOLIC SET (NA,K,CL,CO2,BUN,CREAT,GLUC,CA,AST,ALT,BILI TOTAL,ALK PHOS,ALB,PROT TOTAL) (10/21/2015 9:39 PM PST) + +---------+ + + + | Component | Value | Ref Range | Performed | Pathologist | | | | | At | Signature | + +---------+ + + + | GLUCOSE, | 89 | 60 - 99 mg/dL | [facility] | | | PLASMA | | | LABORATORY | | | (LAB) | | | SERVICES, | | | | | | CORE | | + +---------+ + + + | BUN, PLASMA | 4 (L) | 6 - 20 mg/dL | [facility] | | | (LAB) | | | LABORATORY | | | | | | SERVICES, | | | | | | CORE | | + +---------+ + + + | CREATININE | 0.84 | 0.60 - 1.10 | [facility] | | | PLASMA | | mg/dL | LABORATORY | | | (LAB) | | | SERVICES, | | | | | | CORE | | + +---------+ + + + | EGFR | >60 | >60 mL/min | [facility] | | | - | | | LABORATORY | | | AFGHAN | | | SERVICES, | | | | | | CORE | | + +---------+ + + + | EGFR NON | >60 | >60 mL/min | [facility] | | | -KEY | | | LABORATORY | | | RICAN | | | SERVICES, | | | | | | CORE | | + +---------+ + + + | SODIUM, | 139 | 136 - 145 | [facility] | | | PLASMA | | mmol/L | LABORATORY | | | (LAB) | | | SERVICES, | | | | | | CORE | | + +---------+ + + + | POTASSIUM, | 3.8 | 3.4 - 5.0 | [facility] | | | PLASMA | | mmol/L | LABORATORY | | | (LAB) | | | SERVICES, | | | | | | CORE | | + +---------+ + + + | CHLORIDE, | 106 | 97 - 108 mmol/L | [facility] | | | PLASMA | | | LABORATORY | | | (LAB) | | | SERVICES, | | | | | | CORE | | + +---------+ + + + | TOTAL CO2, | 29 | 21 - 32 mmol/L | [facility] | | | PLASMA | | | LABORATORY | | | (LAB) | | | SERVICES, | | | | | | CORE | | + +---------+ + + + | CALCIUM, | 9.0 | 8.6 - 10.2 | [facility] | | | PLASMA | | mg/dL | LABORATORY | | | (LAB) | | | SERVICES, | | | | | | CORE | | + +---------+ + + + | BILIRUBIN | 0.5 | 0.3 - 1.2 mg/dL | [facility] | | | TOTAL | | | LABORATORY | | | | | | SERVICES, | | | | | | CORE | | + +---------+ + + + | TOTAL | 7.4 | 6.4 - 8.2 g/dL | [facility] | | | PROTEIN, | | | LABORATORY | | | PLASMA | | | SERVICES, | | | (LAB) | | | CORE | | + +---------+ + + + | ALBUMIN, | 4.2 | 3.5 - 4.7 g/dL | [facility] | | | PLASMA | | | LABORATORY | | | (LAB) | | | SERVICES, | | | | | | CORE | | + +---------+ + + + | ALK PHOS | 81 | 42 - 98 U/L | [facility] | | | | | | LABORATORY | | | | | | SERVICES, | | | | | | CORE | | + +---------+ + + + | AST(SGOT) | 25 | <=41 U/L | [facility] | | | | | | LABORATORY | | | | | | SERVICES, | | | | | | CORE | | + +---------+ + + + | ALT (SGPT) | 50 | <=60 U/L | [facility] | | | | | | LABORATORY | | | | | | SERVICES, | | | | | | CORE | | + +---------+ + + + | ANION | 3 (L) | 4 - 11 mmol/L | [facility] | | | GAP(ALB | | | LABORATORY | | | CORRECTED) | | | SERVICES, | | | | | | CORE | | + +---------+ + + + | POTASSIUM | No Hemo | | [facility] | | | CMNT | | | LABORATORY | | | | | | SERVICES, | | | | | | CORE | | + +---------+ + + + | BILI T CMNT | No Hemo | | [facility] | | | | | | LABORATORY | | | | | | SERVICES, | | | | | | CORE | | + +---------+ + + + | AST CMNT | No Hemo | | [facility] | | | | | | LABORATORY | | | | | | SERVICES, | | | | | | CORE | | + +---------+ + + + | ANION GAP | 4 | mmol/L | [facility] | | | | | | LABORATORY | | | | | | SERVICES, | | | | | | CORE | | + +---------+ + + + + + | Specimen | + + | Blood - Blood | | (substance) | + + + + + | Narrative | Performed At | + + + | GFR is estimated using the MDRD equation recommended by the | [facility] | | National Kidney Disease Education Program. Estimated GFR | LABORATORY | | Interpretive Information: <60 mL/min/1.73 sq m | SERVICES, CORE | | Chronic Kidney Disease <15 mL/min/1.73 sq m | | | Kidney Failure Estimated GFR greater that 60 mL/min/1.73 sq m is of | | | limited clinical value. The MDRD equation is not valid in the | | | following situations: - Patients under 18 years of age - Severe | | | malnutrition or obesity - Vegetarian diet - Rapidly changing kidney | | | function | | + + + + + + + + | Performing | Address | City/State/Zipcode | Phone Number | | Organization | | | | + + + + + | [facility] | [address] | [place] [address] | | | SERVICES, CORE | [address] | | | + + + + + documented in this encounter Visit Diagnoses + + | Diagnosis | + + | Epigastric pain - Primary Abdominal pain, epigastric | + + | Pain in joint, lower leg, unspecified laterality | + + | CRPS (complex regional pain syndrome), lower limb, left | + + | Nausea and vomiting | + + | Constipation, unspecified constipation type | + + | Pain of upper abdomen Abdominal pain, other specified site | + + | 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 | + + | CRPS (complex regional pain syndrome), lower limb Causalgia of lower limb | + + | Irritable bowel syndrome with constipation Irritable bowel syndrome | + + documented in this encounter Administered Medications + +--------+ + +------+------+ | Medication Order | MAR | Action | Dose | Rate | Site | | | Action | Date | | | | + +--------+ + +------+------+ | acetaminophen (TYLENOL) tablet | Given | 10/25/20 | 1,000 mg | | | | 1,000 mg 1,000 mg, oral, EVERY 6 | | 15 10:44 | | | | | HOURS, First dose on Tue10/22/15 | | AM PST | | | | | at 0400, Until Discontinued | | | | | | + +--------+ + +------+------+ +-------+ + +---+---+ | Given | 10/25/20 | 1,000 mg | | | | | 15 4:04 | | | | | | AM PST | | | | +-------+ + +---+---+ | Given | 10/24/20 | 1,000 mg | | | | | 15 9:33 | | | | | | PM PST | | | | +-------+ + +---+---+ +---+---+ | | | +---+---+ + +-------+ +-------+---+---+ | aluminum-magnesium | Given | 10/22/20 | 30 mL | | | | hydroxide-simethicone (MAALOX; | | 15 2:02 | | | | | MYLANTA) 200-200-20 mg/5 mL | | AM PST | | | | | suspension 30 mL 30 mL, oral, | | | | | | | EVERY 4 HOURS NEEDED, Starting | | | | | | | 10/21/15 at 2341, Until Sun | | | | | | | 10/26/15 at 0006, dyspepsia | | | | | | + +-------+ +-------+---+---+ +---+---+ | | | +---+---+ + +-------+ +--------+---+---+ | heparin injection 5,000 Units | Given | 10/25/20 | 5,000 | | | | 5,000 Units, subcutaneous, EVERY | | 15 8:04 | Units | | | | 8 HOURS, First dose on Wed | | AM PST | | | | | 10/22/15 at 0000, Until | | | | | | | Discontinued | | | | | | + +-------+ +--------+---+---+ +-------+ +--------+---+---+ | Given | 10/25/20 | 5,000 | | | | | 15 1:41 | Units | | | | | AM PST | | | | +-------+ +--------+---+---+ | Given | 10/24/20 | 5,000 | | | | | 15 4:07 | Units | | | | | PM PST | | | | +-------+ +--------+---+---+ +---+---+ | | | +---+---+ + +---------+ +------+---+---+ | HYDROmorphone (DILAUDID) | New Bag | 10/22/20 | 1 mg | | | | injection 0.5-1 mg 0.5-1 mg, | | 15 1:29 | | | | | intravenous, EVERY 4 HOURS | | PM PST | | | | | NEEDED, Starting Tue10/21/15 at | | | | | | | 2341, Until Tue10/22/15 at 1425, | | | | | | | severe pain, Please give for pain | | | | | | | refractory to oxycodone | | | | | | + +---------+ +------+---+---+ +---------+ +------+---+---+ | New Bag | 10/22/20 | 1 mg | | | | | 15 9:09 | | | | | | AM PST | | | | +---------+ +------+---+---+ | New Bag | 10/22/20 | 1 mg | | | | | 15 4:02 | | | | | | AM PST | | | | +---------+ +------+---+---+ +---+---+ | | | +---+---+ + +---------+ +------+---+---+ | HYDROmorphone (DILAUDID) | New Bag | 10/25/20 | 1 mg | | | | injection 0.5-1 mg 0.5-1 mg, | | 15 8:05 | | | | | intravenous, EVERY 4 HOURS | | AM PST | | | | | NEEDED, Starting 10/22/15 at | | | | | | | 2324, Until 10/26/15 at 0006, | | | | | | | severe pain, for pain > 7/10 | | | | | | + +---------+ +------+---+---+ +---------+ +------+---+---+ | New Bag | 10/25/20 | 1 mg | | | | | 15 4:04 | | | | | | AM PST | | | | +---------+ +------+---+---+ | New Bag | 10/24/20 | 1 mg | | | | | 15 11:46 | | | | | | PM PST | | | | +---------+ +------+---+---+ +---+---+ | | | +---+---+ + +-------+ +-------+---+---+ | hydrOXYzine pamoate (VISTARIL) | Given | 10/23/20 | 25 mg | | | | capsule 25 mg 25 mg, oral, ONCE, | | 15 12:43 | | | | | 1 dose, [facility] 10/23/15 at 1245 | | PM PST | | | | + +-------+ +-------+---+---+ +---+---+ | | | +---+---+ + +-------+ +--------+---+---+ | ibuprofen (MOTRIN) tablet 600 | Given | 10/25/20 | 600 mg | | | | mg 600 mg, oral, EVERY 6 HOURS, | | 15 8:05 | | | | | First dose on [facility] 10/23/15 at | | AM PST | | | | | 1330, Until Discontinued | | | | | | + +-------+ +--------+---+---+ +-------+ +--------+---+---+ | Given | 10/25/20 | 600 mg | | | | | 15 1:41 | | | | | | AM PST | | | | +-------+ +--------+---+---+ | Given | 10/24/20 | 600 mg | | | | | 15 8:08 | | | | | | PM PST | | | | +-------+ +--------+---+---+ +---+---+ | | | +---+---+ + +-------+ +---+---+---+ | iohexol (OMNIPAQUE) 300 mg | Given | 10/23/20 | | | | | iodine/mL injection oral, ONCE, | | 15 2:29 | | | | | 1 dose, [facility] 10/23/15 at 1245 | | PM PST | | | | + +-------+ +---+---+---+ +---+---+ | | | +---+---+ + + + + +---------+---+ | ketamine (KETALAR) 500 mg in | Rate/Dos | 10/22/20 | 40 mg/hr | 4 mL/hr | | | NaCl 0.9 % 50 mL IV infusion | e Change | 15 10:03 | | | | | intravenous, CONTINUOUS, Starting | | PM PST | | | | | 10/22/15 at 1500, Until Wed | | | | | | | 10/22/15 at 2324 | | | | | | + + + + +---------+---+ + + + +---------+---+ | Rate/Dose Change | 10/22/20 | 35 mg | | | | | 15 9:02 | | | | | | PM PST | | | | + + + +---------+---+ | Rate/Dose Change | 10/22/20 | 30 mg/hr | 3 mL/hr | | | | 15 8:13 | | | | | | PM PST | | | | + + + +---------+---+ +---+---+ | | | +---+---+ + +---------+ +-------+---+---+ | ketorolac (TORADOL) injection | New Bag | 10/21/20 | 30 mg | | | | 30 mg 30 mg, intravenous, ONCE, | | 15 11:10 | | | | | 1 dose, [facility] 10/21/15 at 2230 | | PM PST | | | | + +---------+ +-------+---+---+ +---+---+ | | | +---+---+ + +---------+ + +---+---+ | lactated ringers IV 1,000 mL, | New Bag | 10/22/20 | 1,000 mL | | | | intravenous, ONCE, 1 dose, Wed | | 15 2:03 | | | | | 10/22/15 at 0015 | | AM PST | | | | + +---------+ + +---+---+ +---+---+ | | | +---+---+ + +---------+ + +---+---+ | lactated ringers IV 1,000 mL, | New Bag | 10/22/20 | 1,000 mL | | | | intravenous, ONCE, 1 dose, Wed | | 15 10:09 | | | | | 10/22/15 at 0945 | | AM PST | | | | + +---------+ + +---+---+ +---+---+ | | | +---+---+ + +-------+ +------+---+---+ | lactulose (ENULAC) liquid 20 g | Given | 10/22/20 | 20 g | | | | 20 g (30 mL), oral, THREE TIMES | | 15 10:09 | | | | | DAILY, 3 doses, First dose on Wed | | PM PST | | | | | 10/22/15 at 1600, Last dose on | | | | | | | [facility] 10/23/15 at 0900 | | | | | | + +-------+ +------+---+---+ +-------+ +------+---+---+ | Given | 10/22/20 | 20 g | | | | | 15 3:58 | | | | | | PM PST | | | | +-------+ +------+---+---+ +---+---+ | | | +---+---+ + +-------+ +------+---+---+ | lactulose (ENULAC) liquid 20 g | Given | 10/25/20 | 20 g | | | | 20 g (30 mL), oral, EVERY 2 | | 15 1:40 | | | | | HOURS, 5 doses, First dose on Fri | | AM PST | | | | | 10/24/15 at 1730, Last dose on | | | | | | | 10/25/15 at 0130 | | | | | | + +-------+ +------+---+---+ +-------+ +------+---+---+ | Given | 10/24/20 | 20 g | | | | | 15 11:46 | | | | | | PM PST | | | | +-------+ +------+---+---+ | Given | 10/24/20 | 20 g | | | | | 15 9:33 | | | | | | PM PST | | | | +-------+ +------+---+---+ +---+---+ | | | +---+---+ + +-------+ +------+---+---+ | lactulose (ENULAC) liquid 20 g | Given | 10/25/20 | 20 g | | | | 20 g (30 mL), oral, EVERY 2 | | 15 10:44 | | | | | HOURS, 5 doses, First dose (after | | AM PST | | | | | last reorder) on 10/25/15 at | | | | | | | 0330, Last dose on 10/25/15 | | | | | | | at 1130 | | | | | | + +-------+ +------+---+---+ +-------+ +------+---+---+ | Given | 10/25/20 | 20 g | | | | | 15 8:04 | | | | | | AM PST | | | | +-------+ +------+---+---+ | Given | 10/25/20 | 20 g | | | | | 15 6:03 | | | | | | AM PST | | | | +-------+ +------+---+---+ +---+---+ | | | +---+---+ + +-------+ +-------+---+---+ | lidocaine viscous (XYLOCAINE | Given | 10/22/20 | 30 mL | | | | VISCOUS) 2 % mucosal solution 30 | | 15 2:02 | | | | | mL 30 mL, oral, ONCE, 1 dose, | | AM PST | | | | | 10/22/15 at 0015 | | | | | | + +-------+ +-------+---+---+ +---+---+ | | | +---+---+ + +---------+ +------+---+---+ | LORazepam (ATIVAN) injection 1 | New Bag | 10/21/20 | 1 mg | | | | mg 1 mg, intravenous, ONCE, 1 | | 15 11:10 | | | | | dose, 10/21/15 at 2230 | | PM PST | | | | + +---------+ +------+---+---+ +---+---+ | | | +---+---+ + +-------+ +-------+---+---+ | omeprazole (PRILOSEC) capsule | Given | 10/25/20 | 40 mg | | | | 40 mg 40 mg, oral, TWICE DAILY | | 15 8:05 | | | | | BEFORE MEALS, First dose (after | | AM PST | | | | | last modification) on Tue10/22/15 | | | | | | | at 0930, Until Discontinued | | | | | | + +-------+ +-------+---+---+ +-------+ +-------+---+---+ | Given | 10/24/20 | 40 mg | | | | | 15 5:43 | | | | | | PM PST | | | | +-------+ +-------+---+---+ | Given | 10/24/20 | 40 mg | | | | | 15 7:11 | | | | | | AM PST | | | | +-------+ +-------+---+---+ +---+---+ | | | +---+---+ + +-------+ +------+---+---+ | ondansetron (ZOFRAN) tablet 8 | Given | 10/25/20 | 8 mg | | | | mg 8 mg, oral, EVERY 8 HOURS | | 15 6:03 | | | | | NEEDED, Starting Tu10/21/15 at | | AM PST | | | | | 2340, Until 10/26/15 at 0006, | | | | | | | nausea/vomiting | | | | | | + +-------+ +------+---+---+ +-------+ +------+---+---+ | Given | 10/24/20 | 8 mg | | | | | 15 11:46 | | | | | | PM PST | | | | +-------+ +------+---+---+ | Given | 10/24/20 | 8 mg | | | | | 15 5:43 | | | | | | PM PST | | | | +-------+ +------+---+---+ +---+---+ | | | +---+---+ + +-------+ +-------+---+---+ | oxyCODONE (immediate release) | Given | 10/25/20 | 10 mg | | | | (ROXICODONE) tablet 5-10 mg 5-10 | | 15 2:19 | | | | | mg, oral, EVERY 4 HOURS | | PM PST | | | | | NEEDED, Starting 10/22/15 at | | | | | | | 2324, Until 10/26/15 at 0006, | | | | | | | moderate pain | | | | | | + +-------+ +-------+---+---+ +-------+ +-------+---+---+ | Given | 10/25/20 | 10 mg | | | | | 15 6:03 | | | | | | AM PST | | | | +-------+ +-------+---+---+ | Given | 10/25/20 | 10 mg | | | | | 15 1:41 | | | | | | AM PST | | | | +-------+ +-------+---+---+ +---+---+ | | | +---+---+ + +-------+ +------+---+---+ | oxyCODONE (immediate release) | Given | 10/22/20 | 5 mg | | | | (ROXICODONE) tablet 5-15 mg 5-15 | | 15 10:27 | | | | | mg, oral, EVERY 4 HOURS | | AM PST | | | | | NEEDED, Starting Tue10/21/15 at | | | | | | | 2337, Until Tue10/22/15 at 1425, | | | | | | | severe pain, Please give 5 mg for | | | | | | | pain 5-7, please give 10 mg for | | | | | | | pain 7-8, please give 15 mg for | | | | | | | pain >8 | | | | | | + +-------+ +------+---+---+ +-------+ +-------+---+---+ | Given | 10/22/20 | 10 mg | | | | | 15 7:44 | | | | | | AM PST | | | | +-------+ +-------+---+---+ | Given | 10/22/20 | 5 mg | | | | | 15 2:02 | | | | | | AM PST | | | | +-------+ +-------+---+---+ +---+---+ | | | +---+---+ + +-------+ +------+---+---+ | polyethylene glycol (MIRALAX) | Given | 10/25/20 | 17 g | | | | powder 17 g 17 g, oral, DAILY, | | 15 8:04 | | | | | First dose on Tue10/22/15 at | | AM PST | | | | | 0900, Until Discontinued | | | | | | + +-------+ +------+---+---+ +-------+ +------+---+---+ | Given | 10/24/20 | 17 g | | | | | 15 9:34 | | | | | | AM PST | | | | +-------+ +------+---+---+ | Given | 10/22/20 | 17 g | | | | | 15 10:27 | | | | | | AM PST | | | | +-------+ +------+---+---+ +---+---+ | | | +---+---+ + +-------+ +------+---+---+ | polyethylene glycol (MIRALAX) | Given | 10/24/20 | 17 g | | | | powder 17 g 17 g, oral, ONCE, 1 | | 15 5:44 | | | | | dose, 10/24/15 at 1730 | | PM PST | | | | + +-------+ +------+---+---+ +---+---+ | | | +---+---+ + +---------+ +---------+---+---+ | promethazine (PHENERGAN) | New Bag | 10/23/20 | 12.5 mg | | | | injection 12.5 mg 12.5 mg, | | 15 10:11 | | | | | intravenous, ONCE, 1 dose, [place] | | AM PST | | | | | 10/23/15 at 0930 | | | | | | + +---------+ +---------+---+---+ +---+---+ | | | +---+---+ + +---------+ +---------+---+---+ | promethazine (PHENERGAN) | New Bag | 10/25/20 | 12.5 mg | | | | injection 12.5 mg 12.5 mg, | | 15 10:44 | | | | | intravenous, EVERY 6 HOURS | | AM PST | | | | | NEEDED, Starting [facility] 10/23/15 at | | | | | | | 1102, Until 10/26/15 at 0006, | | | | | | | nausea/vomiting, Please | | | | | | | alternate w yudi | | | | | | + +---------+ +---------+---+---+ +---------+ +---------+---+---+ | New Bag | 10/25/20 | 12.5 mg | | | | | 15 4:04 | | | | | | AM PST | | | | +---------+ +---------+---+---+ | New Bag | 10/24/20 | 12.5 mg | | | | | 15 9:42 | | | | | | PM PST | | | | +---------+ +---------+---+---+ +---+---+ | | | +---+---+ + +-------+ + +---+---+ | senna-docusate (SENOKOT S) | Given | 10/24/20 | 1 tablet | | | | 8.6-50 mg 1 tablet 1 tablet, | | 15 9:34 | | | | | oral, DAILY, First dose on Tue | | AM PST | | | | | 10/22/15 at 0900, Until | | | | | | | Discontinued | | | | | | + +-------+ + +---+---+ +-------+ + +---+---+ | Given | 10/22/20 | 1 tablet | | | | | 15 10:27 | | | | | | AM PST | | | | +-------+ + +---+---+ +---+---+ | | | +---+---+ + +-------+ + +---+---+ | senna-docusate (SENOKOT S) | Given | 10/25/20 | 1 tablet | | | | 8.6-50 mg 1 tablet 1 tablet, | | 15 8:05 | | | | | oral, TWICE DAILY, First dose | | AM PST | | | | | (after last modification) on Fri | | | | | | | 10/24/15 at 2100, Until | | | | | | | Discontinued | | | | | | + +-------+ + +---+---+ +-------+ + +---+---+ | Given | 10/24/20 | 1 tablet | | | | | 15 8:08 | | | | | | PM PST | | | | +-------+ + +---+---+ +---+---+ | | | +---+---+ + +-------+ +-----+---+---+ | sucralfate (CARAFATE) | Given | 10/25/20 | 1 g | | | | suspension 1 g 1 g, oral, BEFORE | | 15 2:22 | | | | | MEALS AND BEDTIME, First dose on | | PM PST | | | | | 10/22/15 at 0700, Until | | | | | | | Discontinued | | | | | | + +-------+ +-----+---+---+ +-------+ +-----+---+---+ | Given | 10/25/20 | 1 g | | | | | 15 8:53 | | | | | | AM PST | | | | +-------+ +-----+---+---+ | Given | 10/24/20 | 1 g | | | | | 15 9:33 | | | | | | PM PST | | | | +-------+ +-----+---+---+ +---+---+ | | | +---+---+ documented in this encounter
--- OUTSIDE RECORDS SUMMARY | ~2020-07-04 | XMS | Encounter Summary ---
Demographics + + + | Address | [address] | | | [place] [address] | + + + | Home Phone | | + + + | Preferred Language | Unknown | + + + | Marital Status | Single | + + + | Zoroastrianism Affiliation | FMD | + + + | Race | White | + + + | Ethnic Group | Not or | + + + Author + + + | Author | [facility] | + + + | Organization | [facility] | + + + | Address | Unknown | + + + | Phone | Unavailable | + + + Support + + +---------+ + | Name | Relationship | Address | Phone | + + +---------+ + | Patricia Colin | ECON | Unknown | | + + +---------+ + Care Team Providers + +------+ + | [facility] Sales Representative Name | Role | Phone | + +------+ + | Justo Vazquez MD | PCP | | + +------+ + Encounter Details +--------+ + + + + | Date | Type | Department | Care Team | Description | +--------+ + + + + | 01/26/ | Document-Sc | Health Information | Unknown . | | | 2017 | anned | Services [id number] | | | | | [address] | | | | | | Mailcode: [id number] | | | | | | [facility] | | | | | | [place], [place] | | | | | | [address] | | | | | | [phone] | | | +--------+ + + + [...]
--- OUTSIDE RECORDS SUMMARY | ~2020-07-04 | XMS | Encounter Summary ---
Demographics + + + | Address | [address] | | | [place] [address] | + + + | Home Phone | | + + + | Preferred Language | Unknown | + + + | Marital Status | Single | + + + | Uatsdin Affiliation | FMD | + + + [...] Team Providers + +------+ + | [employer] Assessor Name | Role | Phone | + +------+ + | Justo Vazquez MD | PCP | | + +------+ + Reason for Visit + + + | Reason | Comments | + + + | Dermatitis | | + + + Encounter Details +--------+ + + + + | Date | Type | Department | Care Team | Description | +--------+ + + + + | 10/06/ | Telephone | [facility] | Yosef Kenney MD | Dermatitis | | 2018 | | [facility] Center at | [address] | | | | | [facility] | [facility] | | | | | [address] | [place] [address] | | | | | [facility] | [phone] | | | | | and Healing, | | | | | | [facility] | | | | | | [place], [place] | | | | | | [address] | | | | | | [phone] | | | +--------+ + + + [...]
--- OUTSIDE RECORDS SUMMARY | ~2020-07-04 | XMS | Encounter Summary ---
Demographics + + + | Address | [address] | | | [place] [address] | + + + | Home Phone | | + + + | Preferred Language | Unknown | + + + | Marital Status | Single | + + + | Adventism Affiliation | FMD | + + + | Race | White | + + + | Ethnic Group | Not or | + + + Author + + + | Author | [facility] | + + + | Organization | [facility] | + + + | Address | Unknown | + + + | Phone | Unavailable | + + + Support + + +---------+ + | Name | Relationship | Address | Phone | + + +---------+ + | Patricia Colin | ECON | Unknown | | + + +---------+ + Care Team Providers + +------+ + | Care Investment Trader Name | Role | Phone | + +------+ + | Justo Vazquez MD | PCP | | + +------+ + Reason for Referral Consult to [place] (Routine) +--------+---------+ + + [...] | | | | | syndrome | [facility] | [facility] | | | | | type 1 of | [address] | Rd [place], | | | | | left lower | [facility], [place] | [place] | | | | | extremity | [address] | [address] | | | | | Muscle pain | Phone: | Phone: | | | | | Procedures | [phone] | [phone] | | | | | REQUEST TO | Fax: | Fax: | | | | | SURGERY | [phone] | [phone] | | | | | IMAGE CONSULTANT | | | +--------+---------+ + + + [...] | | Management | Complex | Alex lAba, | Alex Alba, | | | | | regional | ,PhD [address] | ,PhD [address] | | | | | pain | [address] | | | | | syndrome | [place] | [address] | | | | | type 1 of | Rd | Rd [place], | | | | | left lower | [place], [place] | [place] | | | | | extremity | [address] | [address] | | | | | Muscle pain | Phone: | Phone: | | | | | Procedures | [phone] | [phone] | | | | | REQUEST TO | Fax: | Fax: | | | | | SURGERY | [phone] | [phone] | | | | | IMAGE CONSULTANT | | | | | | | MT INJ,ANES | | | | | | | AGENT,SCIATI | | | | | | | C | | | | | | | NERVE,SINGLE | | | | | | | MT INJECT | | | | | | | NERV | | | | | | | BLCK,OTHR | | | | | | | PERIPH NERV | | | | | | | MT SONO | | | | | | | GUIDE FOR | | | | | | | NEEDLE | | | | | | | PLACEMENT | | | | | | | MT MOD | | | | | | | SEDATION | | | | | | | >=5YRS SAME | | | | | | | MD/QUAL | | | | | | | PROV; INIT | | | | | | | 15 MIN MT | | | | | | | MOD SEDATION | | | | | | | SAME/QUAL | | | | | | | PROV; EA | | | | | | | ADD'L 15 MIN | | | +--------+---------+ + + + + Reason for Visit + + + | Reason | Comments | + + + | Back pain | | + + + | Low back pain | | + + + | Abdominal pain | | + + + | Pain in right leg | | + + + | Pain in left leg | | + + + Consultation (Routine) +--------+--------+ + + + + | Status | Reason | Specialty | Diagnoses / | Referred By | Referred To | | | | | Procedures | Contact | Contact | +--------+--------+ + + + + | Closed | | Pain | Diagnoses | Chasity, | Lowellrulla, | | | | Management | Abdominal | MD Kenny | Alex Alba, | | | | | pain, | [address] | ,PhD [address] | | | | | unspecified | [address] | [address] | | | | | location | Rd | [address] | | | | | Procedures | [facility] [place] | [facility], | | | | | CONSULT TO | [address] | [place] | | | | | PAIN | | [address] | | | | | MANAGEMENT | | Phone: | | | | | | | [phone] | | | | | | | Fax: | | | | | | | [phone] | +--------+--------+ + + + + Encounter Details +--------+---------+ + + + | Date | Type | Department | Care Team | Description | +--------+---------+ + + + | 12/14/ | Office | [facility] | Alex Sanchez, | Complex regional | | 2018 | Visit | Pain Center at | ,PhD [address] | pain syndrome type 1 | | | | [facility] | [facility] [address] [facility] | of left lower | | | | [address] | [place], [place] | extremity (Primary | | | | [facility] | [address] | Dx); Muscle pain; | | | | and Healing, | [phone] | Pain of upper | | | | | | abdomen | | | | Floor [place], [place] | | | | | | [address] | | | | | | [phone] | | | +--------+---------+ + + + [...] + + + | Blood Pressure | 132/69 | 12/14/2017 10:27 AM | | | | | PST | | + + + + + | Pulse | 89 | 12/14/2017 10:27 AM | | | | | PST | | + + + + + | Temperature | - | - | | + + + + + | Respiratory Rate | 15 | 12/14/2017 10:27 AM | | | | | PST | | + + + + + | Oxygen Saturation | 100% | 12/14/2017 10:27 AM | | | | | PST | | + + + + + | Inhaled Oxygen | - | - | | | Concentration | | | | + + + + + | Weight | 74.8 kg (165 lb) | 12/14/2017 10:27 AM | | | | | PST | | + + + + + | Height | 162.6 cm (5' 4") | 12/14/2017 10:27 AM | | | | | PST | | + + + + + | Body Mass Index | 28.32 | 12/14/2017 10:27 AM | | | | | PST | | + + + + + documented in this encounter Patient Instructions Patient Instructions Sonia Key - 12/14/2017 10:25 AM Shona, Thank you for taking the time to see us in the [facility]. It was great to s ee you. We saw you today for your back, abdominal, and left leg pain. Below is a summary of the discussion that we had today: - I recommend obtaining NM Bone Scan for further evaluation of your pain. We may discuss ap propriate therapies for your pain upon review of this imaging study. To schedule your bone s can, please call . - The procedure we discussed today is left sciatic popliteal block and trigger point of abd ominal scar. Please see below for pre-procedure instructions. The procedure you discussed with your doctor is called: Left Sciatic Popliteal Block and Tr igger Point of Abdominal Scar. Please make sure this is scheduled with the [facility]. PRE-PROCEDURE INSTRUCTIONS 1. Please bring a corrugated fastener driver with you as we may give you medications that impair your ability to drive. This is necessary even if you do not receive sedation. You may take a taxi or [employer] if you are accompanied by a responsible [...] or blood thinning medications (other than aspirin), [facility] doctor who is doing your procedure will communicate with the provider who is prescribing y our anticoagulant therapy. If you do not have clear instructions on what to do with your an ticoagulant by 2 weeks before your procedure, please contact [facility] to cl arify your instructions. The phone number for questions or concerns is [phone]. documented in this encounter Progress Notes Charline Salinas MA - 12/14/2017 10:25 AM PSTCMA History: 1. Has your pain changed from your last visit? no change 2. Do your medications cause any side effects? YES 3. Have you had physical therapy appointments since your last visit? NO 4. Have you had psychology appointments since your last visit? NO 5. Have you had any diagnostic studies since your last appointment? NO 6. Do you require any medication refills today? NO ROS:. 1. BONES, JOINTS AND MUSCLES atrophy, joint pain, muscle pain and stiffness 2. GASTROINTESTINAL SYSTEM nausea, constipation and abdominal pain 3. GENITOURINARY SYSTEM urinary hesitancy and dysmenorrhea 4. NERVOUS SYSTEM weakness and vertigo 5. PSYCHIATRIC HISTORY sleep disturbance, guilt, decreased energy, concentration , anxiet y, fear of physical activity and social withdrawal Alex Carrillo M D,PhD - 12/14/2017 10:25 AM PST [facility] Return Visit Date: 12/14/2017 Chief Complaint Patient presents with Back pain Low back pain Abdominal pain Pain in right leg Pain in left leg History of Present Illness: Tracie Farah is a 27 year old female, whose last appoi ntment at the [facility] was October 11, 2017, for a clinic visit with Vern Robertson NP. At that time our plans were: Recommendation/Plan: * Trigger point injection of abdominal [...] review treatment plan. * Follow up with [facility] as needed. Today, she complains of constant pain located in the abdomen and left leg below the knee to the foot. Her pain is made worse by using her leg, sensory overload, wind, bad textures, em otional things, and touching it. Her abdominal pain is improved by IV promethazine, IV torad ol, and brandon. Her leg pain is improved by rest and nasal ketamine. This condition has richa ined unchanged since Ms. Farah's last visit. She does not have new pain complaints on visit. Ms. Farah reports that there have been no changes in her history since the last appointment. She states that she was treated by Christie Madrid MD in [place], [place] for three years before she abruptly ended her practice due to illness. This left her without a doctor to help her manage her chronic pain. In addition to her CRPS symptoms (diagnosed 2010), she has some sto mach issues that she has been working with Ilene Childs DNP, [employer]. She has a scar on her stomach that is really sensitive to light touch and is unsure if the stomach issues are con nected with the CRPS affected leg. She states that the two pains present differently. She chowdhury s had bouts of becoming ill in the past three years where she would develop get a stomach fl are which causes her to be bedridden and puke constantly. This pain would often be accompani ed withsevere stomach and back pain that causes her to be evaluated at the hospital to recei ve IV medications. She endorses history of endoscopies in the past but continues to have thi s cyclical pain. The abdominal pain flares occur independent of her CRPS symptoms noting gladys t the abdominal pain comes intermittently while the left leg pain is constant. When she was with Christie Madrid MD, their plan was to start her with nasal ketamine and wea n her off of her narcotics. She was previously on multiple narcotic medications and fentanyl patch. She recalls that the next step was to start her on methadone. She feels like she mad e a lot of great improvements while in [place], [place]. Weaning her off of the narcotic medica tions and starting the nasal ketamine gave her significant pain relief that was able to get her out of her wheelchair. She continues to be on disability, but is otherwise better able t o function on her own. She continues to manage her pain with oral medications in addition to the nasal ketamine spray including low-dose naltrexone, lamictal, and dextromethorphan-enoc idine. She didn't find a lot of relief despite being consistent with the aforementioned medi cations. The nasal ketamine is the only therapy that provides her with signficant pain relie f. There was also a period of her medical history that she spent in [place], [place] where she part ook in a clinical trial where they tested the effectiveness of Neridronate infusions on larry ents with CRPS (two years ago). At the end of the study, she found out that she was part of the group that received the medication but is unsure if out of the four treatments she got, if 2/4 included the medications or 4/4. Overall, she felt like it was beneficial and provide d good pain relief but has been gradually returning. She describes the worst of her pain ove r the left ankle, worse along the lateral aspect than the medial aspect by 50%. She notes that although the CRPS leg pain is bad, it is well managed as long as she has her nasal ketamine spray in hand. However, the abdominal pain is "excruciating" and life changi ng. The only therapy that she has found helpful for this pain is IV Toradol. During pain fla res, she is unable to go to the bathroom, has difficulty urinating, and worse than baseline constipation. She notes having to take 4 capfuls of Miralax before she is able to have a bow el movement. The pain is described over a scar on her abdomen from her previous appendectomy and cholecystectomy which occurred one week apart. These surgeries occurred while she was w eaning off of her narcotic medications. The surgeons at the time suspected that because she was on so many pain medications previously, they were masking the pain from her appendix and gallbladder. She states that the scar suddenly became super sensitive. When she gets her st omach pain, it is very severe. She has had periods where she stays home for 40 days because of how constant it is. She has tried cyclobenzaprine without relief. 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 Goes to [employer] with a light load. Has been working at [employer], can' t work on [employer]. Has roommates. Allergies Allergen Reactions Morphine Anaphylaxis Current Medication List Name Sig BACLOFEN 10 [...] by physician. Concentration is 150mg/mL. Compounded by [email or web address] ) LAMOTRIGINE 200 MG TABLET Take [...] GRAM-5.86 GRAM SOLUTION Take as directed by [facility] Digestive [facility]- 2 gallon bowel prep POLYETHYLENE GLYCOL 3350 17 GRAM/DOSE ORAL POWDER Take 17 g by mouth once daily. PROMETHAZINE 12.5 MG TABLET Take 12.5 mg by mouth four times daily as needed for nausea/vom iting. SUCRALFATE 1 GRAM TABLET Take 1 g by mouth four times daily. Radiology/Diagnostic Tests: Not Applicable Most Recent Labs: Not Applicable Bones, Joints, and Muscles: atrophy, joint pain, muscle pain and stiffness Gastrointestinal System: nausea, constipation and abdominal pain Genitourinary System: urinary hesitancy and dysmenorrhea Nervous System: weakness and vertigo Psychiatric History: sleep disturbance, guilt, decreased energy, concentration , anxiety, fear of physical activity and social withdrawal Physical Examination: BP 132/69 | Pulse 89 | RR 15 | Ht 1.626 m (5' 4") | Wt 74.8 kg (165 lb) | SpO2 100% | BMI 2 8.32 kg/(m^2) Physical Exam Constitutional: She is oriented to person, place, and time. No distress. HENT: Head: Normocephalic and atraumatic. [...] respiratory distress. Abdominal: She exhibits no distension. Musculoskeletal: Temperature asymmetry: Left dorsum of the foot undetectable Right dorsum of the foot 27 degrees Swelling minimal over the left ankle Mildy dusky on the left ankle Neurological: She is alert and oriented to person, place, and time. Slightly decreased left ankle flexion, inversion, and eversion Full range of motion of the right ankle Skin: Skin is warm and dry. She is not diaphoretic. No erythema. Psychiatric: Mood, memory, affect and judgment normal. Nursing note and vitals reviewed. Patient Active Problem List Diagnosis CRPS (complex regional pain syndrome), lower limb Gait disturbance Muscle pain Adjustment reaction Pain in joint, lower leg Disturbance in sleep behavior Pain of upper abdomen 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 Irritable bowel syndrome with constipation Intractable cyclical vomiting with nausea Abdominal pain Visit Diagnoses: G90.522 Complex regional pain syndrome type 1 of left lower extremity M79.1 Muscle pain For today's evaluation, I have included my personal review of Ms. Farah's history and ph ysical examination. I also used the following components in my medical decision making: Review and summary of old medical records (source: [employer]), as summarized in the body of the note. Impression: Ms. Tracie Farah is a 27 y.o. female with a history of CRPS of the lower extremity . When she was last evaluated by Vern Robertson NP (10/11/2017), she was recommended for tri gger point injections over the abdominal scar, Lidoderm topical or compounded baclofen trial , and provided a referral to acupuncture. Since she was last seen, she attempted to obtain t he injections for her scar with Richie Sims MD on 10/26/2017 but was unable to complete the p rocedure secondary to her pain and non-NPO status. She states that she was not informed prio r to the procedure that she was to remain NPO. Today, she continues to have pain across her abdomen most tender over the area of her scar and to the left lower leg, worst at the left lateral ankle. I examined her left ankle CRPS s ymptoms today notable for minimal swelling, mild dusky discoloration, and temperature asymme try as noted in the physical exam portion of the note above. She has been managing this pain for what sounds like a few years with nasal ketamine spray that was originally being prescr ibed to her by Christie Madrid MD in [place], [place]. As she has since left the practice, Ms. No rthern no longer has a prescriber for this medication. At the [facility], we typically do not provide our patients with prescriptions but as Ms. Farah has been dealin g with this pain chronically since age 12, is appropriate in using the ketamine spray, and i s using the medication as directed, demonstrates benefits, and has no serious adverse effect s I feel that it is reasonable to provide Ms. Farah with a prescription refill today. I jacqueline poon spoken with our adjunct faculty for medical terminology, Evelia Gonzalez MD who agrees that as she has exhauste d all other medications and modalities, it is reasonable to provide her with this prescripti on while we arrange for alternative therapies and studies including injections and NM bone s can. However, as ketamine is a controlled substance, I will have her go down to the lab on h er way out today to obtain a urine drug screen. In regards to available procedures for her respective pain, I feel that she is a reasonable candidate for left sciatic popliteal nerve block given her high sensitivity to light touch over the area of her lateral left ankle neuroma. Additionally, I recommend retrying the trig darryl point of the abdominal scar with sedation. I have reviewed the pre-procedure instruction s with the patient and the patient expresses understanding of the NPO status. In the meantim e, I recommend that she obtain NM Bone Scan. If the results are positive, we will continue t reating her pain as CRPS with IV bisphosphonates. If the results of this study are negative, we may consider neuroma-specific therapies including such peripheral nerve stimulation. As she lives in [place], [place] with her family (3.5 hours away), I suggested that she call radio logy to schedule the imaging study before calling the clinic to schedule the procedures so t hat she may schedule all three for the same day and reduce the time spent commuting. Should the aforementioned modalities fail to provide adequate pain relief, we may consider DRG stim ulation despite the patient's previous history of failed spinal cord stimulator trial. DRG s timulation is unlike the stimulator device that she had trialed in the past and may be able to provide her with significant pain relief as shown in recent clinical trials. The patient understands this rationale and is amenable to the plan. Recommendation/Plan: - Obtain NM Bone Scan, ordered. Patient will call to schedule. - Recommend left sciatic popliteal nerve block, ordered. Patient will call to schedule for ideally the same day as NM Bone Scan. - Recommend trigger point of abdominal scar, ordered. Patient will call to schedule for shawn ally the same day as NM Bone Scan. - Prescription refill provided: Ketamine nasal spray 150 mg/ml, dispense: 1, refills: 0 - May consider DRG stimulation should injections fail to provide adequate pain relief I, Sonia Key, am functioning as a scribe for Dr. Alex Sanchez MD, PhD. I have reviewed and verified the above scribed note of my visit with this patient as record ed by Sonia Key. Alex Sanchez MD PhD [facility] Post visit: I reviewed the UDS, and it negative. documented in t his encounter Plan of Treatment Not on filedocumented as of this encounter Results DRUG SCREEN,URINE;W/CONFIRM (12/14/2017 11:42 AM PST) + + + + + + | Component | Value | Ref Range | Performed | Pathologist | | | | | At | Signature | + + + + + + | AMPHETAMINE | <125 | <1,000 ng/mL | [facility] | | | CONC, | | | LABORATORY | | | URINE | | | SERVICES, | | | | | | CORE | | + + + + + + | BARBITURATE | Negative | Negative | [facility] | | | S, URINE | | | LABORATORY | | | | | | SERVICES, | | | | | | CORE | | + + + + + + | BARBITURATE | <20 | <200 ng/mL | [facility] | | | S CONC, | | | LABORATORY | | | URINE | | | SERVICES, | | | | | | CORE | | + + + + + + | BENZODIAZEP | Negative | Negative | [facility] | | | BERNY, URINE | | | LABORATORY | | | | | | SERVICES, | | | | | | CORE | | + + + + + + | BENZODIAZEP | <30 | <200 ng/mL | [facility] | | | INE CONC, | | | LABORATORY | | | URINE | | | SERVICES, | | | | | | CORE | | + + + + + + | COCAINE | <35 | <300 ng/mL | [facility] | | | CONC, URINE | | | LABORATORY | | | | | | SERVICES, | | | | | | CORE | | + + + + + + | CANNABINOID | <15 | <50 ng/mL | [facility] | | | CONC, | | | LABORATORY | | | URINE | | | SERVICES, | | | | | | CORE | | + + + + + + | METHADONE | <107 | <300 ng/mL | [facility] | | | CONC, URINE | | | LABORATORY | | | | | | SERVICES, | | | | | | CORE | | + + + + + + | OPIATE | <50 | <300 ng/mL | [facility] | | | CONC, URINE | | | LABORATORY | | | | | | SERVICES, | | | | | | CORE | | + + + + + + | AMPHETAMINE | Negative | | [facility] | | | , URINE | | | LABORATORY | | | | | | SERVICES, | | | | | | CORE | | + + + + + + | Cocaine, | Negative | Negative | [facility] | | | Urine | | | LABORATORY | | | | | | SERVICES, | | | | | | CORE | | + + + + + + | OPIATES, | Negative | Negative | [facility] | | | URINE | | | LABORATORY | | | | | | SERVICES, | | | | | | CORE | | + + + + + + | CANNABINOID | Negative | Negative | [facility] | | | S, URINE | | | LABORATORY | | | | | | SERVICES, | | | | | | CORE | | + + + + + + | METHADONE, | Negative | Negative | [facility] | | | URINE | | | LABORATORY | | | | | | SERVICES, | | | | | | CORE | | + + + + + + | OXYCODONE, | Negative | Negative | [facility] | | | URINE | | | LABORATORY | | | | | | SERVICES, | | | | | | CORE | | + + + + + + + + | Specimen | + + | Urine - Urine | | (substance) | + + + + + | Narrative | Performed At | + + + | Minimum drug concentration yielding a positive urine drug screen. | [facility] | | Amphetamines >=1000 ng/mL Barbiturates | LABORATORY | | >=200 ng/mL Benzodiazepine | SERVICES, CORE | | >=200 ng/mL Cocaine >=300 ng/mL | | | Methadone >=300 ng/mL Opiates | | | >=300 ng/mL Oxycodone | | | >=100 ng/mL THC - Cannabinoid >=50 ng/mL | | | Screening results are not confirmed by alternate method unless | | | requested. Results are to be used for medical (i.e. treatment) | | | purposes only. The reported result is an estimated concentration of | | | drug that can be detected by the method of analysis. Amphetamine | | | Note: Benzphetamine and Selegiline may produce positive results with | | | this assay. Opiates Notes: Therapeutic doses of Ofloxcin (Floxin) or | | | Levofloxacin (Levaquin) may produce positive results with this assay. | | + + + + + + + + | Performing | Address | City/State/Zipcode | Phone Number | | Organization | | | | + + + + + | [facility] | [address] | [place] [address] | | | SERVICES, CORE | [address] | | | + + + + + documented in this encounter Visit Diagnoses + + | Diagnosis | + + | Complex regional pain syndrome type 1 of left lower extremity - Primary | + + | Muscle pain Mylagia and myositis, unspecified | + + | Pain of upper abdomen Abdominal pain, other specified site | + + documented in this encounter
--- OUTSIDE RECORDS SUMMARY | ~2020-07-04 | XMS | Encounter Summary ---
Demographics + + + | Address | [address] | | | [place] [address] | + + + | Home Phone [...] Author + + + | Author | [facility] | + + + | Organization | [facility] | + + + | Address | Unknown | + + + | Phone | Unavailable | + + + Support + + +---------+ + | Name | Relationship | Address | Phone | + + +---------+ + | Patricia Colin | ECON | Unknown | | + + +---------+ + Care Team Providers + +------+ + | Care Denier Control Operator Name | Role | Phone | [...] | | | | | extremity | [address] | [address] | | | | | Procedures | Phone: | Phone: | | | | | REQUEST TO | [phone] | [phone] | | | | | SURGERY | Fax: | Fax: | | | | | CASH SURRENDER CALCULATOR | [phone] | [phone] | +--------+---------+ + + + + Encounter Details +--------+---------+ + + + | Date | Type | Department | Care Team | Description | +--------+---------+ + + + | 12/22/ | Office | [facility] | Ilene Bright, | Complex regional | | 2019 | Visit | Pain Center at | GAS TURBINE POWERPLANT MECHANIC [address] | pain syndrome type 1 | | | | [facility] | [place], [place] | of left lower | | | | [address] | [address] | extremity; S/P | | | | [place] for [facility] | [phone] | insertion of spinal | | | | and Healing, | | cord stimulator | | | | Building | | | | | | Floor [place], [place] | | | | | | [address] | | | | | | [phone] | | | +--------+---------+ + + + [...] fo r your reference. - The [employer] employee representative met with you and made adjustments to your stimulator. I spoke w ith the employee representative and she is happy with your [...] call this prescription into the [facility] in [place]. It was great to see you again, documented in this encounter Progress Notes Ilene Bright, GAS TURBINE POWERPLANT MECHANIC - 12/22/2018 11:00 AM PSTFormatting of this note might be different fr om the original. [facility] Return Visit Date: 12/22/2018 Chief Complaint Patient presents with Low back pain Pain in left leg History of Present Illness: Tracie Farah is a 28 year old female, whose last appoi ntment at the [facility] was 12/07/2018 following her doral [...] order to tolerate her incision site pain. GRANTS ASSISTANT Brief Pain Inventory: (ten= worst possible [...] Hemroidectomy Trial spinal cord stimulator leads 08/02/2012 [facility], Surgeon: Janak Riojas MD Cholecystectomy Appendectomy [...] History Social History Narrative Single. Goes to [employer] with a light load. Has been working at [employer], can' t work on [employer]. Has roommates. Allergies Allergen Reactions Morphine Anaphylaxis [...] GRAM-5.86 GRAM SOLUTION Take as directed by [facility]- 2 gallon bowel prep POLYETHYLENE [...] with nausea Abdominal pain Abdominal scar neuroma [facility] CLINICAL PROTOCOL PATIENT (CLNPRO) - Implanted Spinal [...] and summary of old medical records (source: [facility] Everywhere), as summarized in the body of [...] taking for her surgical incision. The [employer] employee representative visited the patient in order to [...] ed by Collin Salomon. Ilene Childs DNP, GAS TURBINE POWERPLANT MECHANIC-[facility] [address] [place] [address] mith, Charline Torres MA - 12/22/2018 11:00 [...]
--- OUTSIDE RECORDS SUMMARY | ~2020-07-04 | XMS | Encounter Summary ---
Demographics + + + | Address | [address] | | | [place] [address] | + + + | Home Phone | | + + + | Preferred Language | Unknown | + + + | Marital Status | Single | + + + | Evangelical Affiliation | FMD | + + + [...] Team Providers + +------+ + | Care Counselor Education Professor Name | Role | Phone | + +------+ + | Justo Vazquez MD | PCP | | + +------+ + Reason for Visit AUTH/CERT +--------+--------+ + + + + | [...] | +--------+ + + + + | 12/05/ | Anesthesia | [facility] | Ilir Valdes | | | 2019 | Event | [facility] | MD Juan [address] | | | | | and Healing Surgery | [address] | | | | | Center Admitting | [place], [place] | | | | | Desk Located on the | [address] | | | | | 4th floor [address] | [phone] | | | | | [address] [place], | | | | | | [place] [address] | Arben Valerio MD | | | | | | [address] | | | | | | [address] | | | | | | [place], [place] | | | | | | [address] | | | | | | [phone] | | | | | | | | +--------+ + + + + Anesthesia Record + + + + + | Procedure Name | Responsible | Anesthesia Start | Anesthesia Stop Time | | | Anesthesiologist | Time | | + + + + + | BILATERAL DORSAL | Ilir Valdes, | 12/05/18740 | 12/05/18 1044 | | ROOT GANGLION SPINAL | MD | | | | CORD STIMULATOR | | | | | IMPLANT LUMBAR; | | | | | POSTERIOR (Back) | | | | + + + + + +----+---+ + + | Da | T | Event | Comment | | te | i | | | | | m | | | | | e | | | +----+---+ + + | 01 | 0 | Eq Check | Anesthesia machine checked Equipment verified | | /2 | 6 | | | | 2/ | 5 | | | | 20 | 5 | | | | 19 | | | | +----+---+ + + | | 0 | Pt. Check | Prior to anesthesia start, pt. Identified, examined, chart | | | 7 | | reviewed, PARQ held, anesthetic plan made or approved by | | | 1 | | attending anesthesiologist. NPO status confirmed as appropriate | | | 5 | | for procedure Preoperative evaluation: unchanged | +----+---+ + + | | 0 | | | | | 7 | | | | | 2 | | | | | 5 | | | +----+---+ + + | | 0 | An Start | | | | 7 | | | | | 4 | | | | | 1 | | | +----+---+ + + | | 0 | An Start | | | | 7 | Data | | | | 4 | | | | | 3 | | | +----+---+ + + | | 0 | Vitals | Monitors applied Vital signs checked Patient ready for anesthesia | | | 7 | Checked | | | | 4 | | | | | 6 | | | +----+---+ + + | | 0 | O2 by FM | | | | 7 | | | | | 4 | | | | | 6 | | | +----+---+ + + | | 0 | Ready | | | | 7 | | | | | 4 | | | | | 9 | | | +----+---+ + + | | 0 | Abx | | | | 7 | Administere | | | | 5 | d | | | | 7 | | | +----+---+ + + | | 0 | Incision | | | | 8 | | | | | 0 | | | | | 8 | | | +----+---+ + + | | 1 | Surgery end | | | | 0 | | | | | 3 | | | | | 2 | | | +----+---+ + + | | 1 | an stop | | | | 0 | data | | | | 3 | | | | | 2 | | | +----+---+ + + | | 1 | PACU Rpt | | | | 0 | Given | | | | 4 | | | | | 1 | | | +----+---+ + + | | 1 | Anesthesia | | | | 0 | End | | | | 4 | | | | | 4 | | | +----+---+ + + +------+ | Meds | +------+ + + + | Name | Total | + + + | midazolam | 4 mg | + + + | fentaNYL | 100 mcg | + + + | propofol (DIPRIVAN) 200 mg | 1,393,205 mcg | + + + | ceFAZolin (ANCEF) injection 2 g | 2 g | + + + | ePHEDrine | 5 mg | + + + | diphenhydrAMINE | 50 mg | + + + | lactated Ringers IV | 1,200 mL | + + + + + | Name | + + | O2 Flow Rate (Total Liters) | + + + + | No blood administrations on file. | + + +--------+ + +---------+ | Type | Details | Placement | Removal | +--------+ + +---------+ | Port/P | Right; Chest portacath | 03/18/17 2140 by | | | ortaca | | | | | th | | | | +--------+ + +---------+ | Incisi | 12/05/18; Right; Lower; back | 12/05/18 0000 by | | | on | | Kay Francois RN | | +--------+ + +---------+ | Incisi | 12/05/18; Right; Medial, Lower; | 12/05/18 0000 by | | | on | back | Kay Francois RN | | +--------+ + +---------+ | Incisi | 12/05/18; Right; coccyx | 12/05/18 0000 by | | | on | | Kay Francois RN | | +--------+ + +---------+ documented in this encounter Social History + +-------+ +--------+------+ | Tobacco [...] Diagnoses Not on filedocumented in this encounter Administered Medications + +--------+ +------+------+------+ | Medication Order | MAR | Action | Dose | Rate | Site | | | Action | Date | | | | + +--------+ +------+------+------+ | ceFAZolin (ANCEF) injection 2 g | Given | 12/05/19 | 2 g | | | | 2 g, intravenous, PREPROCEDURE | | 19 7:57 | | | | | ONCE, 1 dose, Starting Tue | | AM PST | | | | | 12/05/18 at 0614, Until Tue | | | | | | | 12/05/18 at 0757 | | | | | | + +--------+ +------+------+------+ +---+---+ | | | +---+---+ + +-------+ +-------+---+---+ | diphenhydrAMINE (BENADRYL) | Given | 12/05/19 | 50 mg | | | | injection INTRAPROCEDURE PRN, | | 19 9:29 | | | | | Starting 12/05/18 at 0929, | | AM PST | | | | | Until 12/05/18 at 1032 | | | | | | + +-------+ +-------+---+---+ +---+---+ | | | +---+---+ + +-------+ +------+---+---+ | ePHEDrine injection | Given | 12/05/19 | 5 mg | | | | INTRAPROCEDURE PRN, Starting Tue | | 19 8:39 | | | | | 12/05/18 at 0839, Until Tue | | AM PST | | | | | 12/05/18 at 1032 | | | | | | + +-------+ +------+---+---+ +---+---+ | | | +---+---+ + +-------+ +---------+---+---+ | fentaNYL (SUBLIMAZE) injection | Given | 12/05/19 | 100 mcg | | | | INTRAPROCEDURE PRN, Starting Tu | | 19 7:54 | | | | | 12/05/18 at 0754, Until Tue | | AM PST | | | | | 12/05/18 at 1032 | | | | | | + +-------+ +---------+---+---+ +---+---+ | | | +---+---+ + + + +---+---+---+ | lactated Ringers IV 10 mL/hr, | given by | 12/05/19 | | | | | intravenous, PROCEDURE | | 19 10:44 | | | | | CONTINUOUS, Starting 12/05/18 | anesthes | AM PST | | | | | at 0615, Until Tue12/05/18 at | iology | | | | | | 1906 | | | | | | + + + +---+---+---+ +---------+ +---+---+---+ | New Bag | 12/05/19 | | | | | | 19 10:27 | | | | | | AM PST | | | | +---------+ +---+---+---+ | New Bag | 12/05/19 | | | | | | 19 7:15 | | | | | | AM PST | | | | +---------+ +---+---+---+ +---+---+ | | | +---+---+ + +-------+ +------+---+---+ | midazolam (PF) (VERSED) | Given | 12/05/19 | 2 mg | | | | injection INTRAPROCEDURE PRN, | | 19 9:11 | | | | | Starting 12/05/18 at 0741, | | AM PST | | | | | Until e 12/05/18 at 1032 | | | | | | + +-------+ +------+---+---+ +-------+ +------+---+---+ | Given | 12/05/19 | 2 mg | | | | | 19 7:41 | | | | | | AM PST | | | | +-------+ +------+---+---+ +---+---+ | | | +---+---+ + + + + +---+---+ | propofol (DIPRIVAN) 200 mg | Restarte | 12/05/19 | 150 | | | | INTRAPROCEDURE CONTINUOUS PRN, | d | 19 9:12 | mcg/kg/m | | | | Starting 12/05/18 at 0758, | | AM PST | in | | | | Until 12/05/18 at 1032 | | | | | | + + + + +---+---+ + + + +---+---+ | Rate/Dose Change | 12/05/19 | 150 | | | | | 19 8:47 | mcg/kg/m | | | | | AM PST | in | | | + + + +---+---+ | New Bag | 12/05/19 | 100 | | | | | 19 7:58 | mcg/kg/m | | | | | AM PST | in | | | + + + +---+---+ +---+---+ | | | +---+---+ documented in this encounter"
--- OUTSIDE RECORDS SUMMARY | ~2020-07-04 | XMS | Encounter Summary ---
Demographics + + + | Address | [address] | | | [place] [address] | + + + | Home Phone [...] Author + + + | Author | [facility] | + + + | Organization | [facility] | + + + | Address | Unknown | + + + | Phone | Unavailable | + + + Support + + +---------+ + | Name | Relationship | Address | Phone | + + +---------+ + | Patricia Colin | ECON | Unknown | | + + +---------+ + Care Team Providers + +------+ + | Care Loading Shovel Oiler Name | Role | Phone | + +------+ + | Allegra Gandhi | PCP | | + +------+ + Encounter Details +--------+ + + + + | Date | Type | Department | Care Team | Description | +--------+ + + + + | 02/13/ | Outside | UNKNOWN DEPARTMENT | Other, Faculty | | | 2011 | Records | [address] | [phone] | | | | | [address] | | | | | | [place], [place] | | | | | | [address] | | | +--------+ + + + [...]
--- OUTSIDE RECORDS SUMMARY | ~2020-07-04 | XMS | Encounter Summary ---
Demographics + + + | Address | [address] | | | [place] [address] | + + + | Home Phone [...] Author + + + | Author | [facility] | + + + | Organization | [facility] | + + + | Address | Unknown | + + + | Phone | Unavailable | + + + Support + + +---------+ + | Name | Relationship | Address | Phone | + + +---------+ + | Patricia Colin | ECON | Unknown | | + + +---------+ + Care Team Providers + +------+ + | Care Assistant Customer Service Manager Name | Role | Phone | + [...] | Diagnoses | Beulah | Edu Pt Cnc Mill Operator | | | | Therapy | CRPS | Janak Martinez MD | [facility] [address] | | | | | (complex | [address] | | | | | regional | [address] | Mailcode: | | | | | pain | Mailstop | [facility] | | | | | syndrome), | [id number] | for Health | | | | | lower limb | [place], [place] | and Healing, | | | | | Gait | [address] | [address] | | | | | disturbance | Phone: | [place], [place] | | | | | Muscle pain | [phone] | [address] | | | | | Procedures | Fax: | Phone: | | | | | PHYSICAL | [phone] | [phone] | | | | | THERAPY | | | | | | | REFERRAL | | | +--------+--------+ + + + + Encounter Details +--------+---------+ + + + | Date | Type | Department | Care Team | Description | +--------+---------+ + + + | 05/03/ | Office | [facility] | Guillermo Sanon I, | CRPS (complex | | 2011 | Visit | Therapy Services at | PT [address] | regional pain | | | | [place] | [place] [address] | syndrome), lower | | | | [address] | [phone] | limb (Primary Dx) | | | | [facility] | | | | | | and Healing, | | | | | | Building [address], | | | | | | Floor [place], [place] | | | | | | [address] | | | | | | [phone] | | | +--------+---------+ + + + [...] encounter Patient Instructions Patient Instructions Guillermo Sanon PT - 05/03/2012 3:14 PM PDT documented in this encounter Progress Notes Guillermo Sanon I, PT - 05/03/2012 3:08 PM PDTFormatting of this note might be different f rom the original. [id number] BRODY FARAH Date of : 1990 Start of care: 02/14/2012 Date of onset: 02/14/2012 Referring/Attending Practitioner: aJnak Riojas MD . Primary/Referral Diagnosis/ICD-9: 355.71B CRPS (complex regional pain syndrome), lower limb Insurance: Payor: [facility] [employer] [facility] Plan: BCBS OUT OF STATE Product Type: PP O Service period from: 02/14/2012 to: 08/12/2012 Number visits used/authorized: 12/26 [facility] PHYSICAL THERAPY PROGRESS NOTE SUBJECTIVE: Age: 21 y.o. Sex: female Chief complaint: No chief complaint on file. 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 She is doing much better ov [facility], possibly because she finished school and so has less stress. She stopped using crutch es in early April (18 days ago) which is less stressful. Now she is working at [employer] 2-3 hours per week, and spends a [...] Pain is relieved by: sometimes pain meds. Social History: lives in [facility], 22 years old, not working currently, in school taking p rerecs Hobbies/Recreation: nothing for exercise. Stress level: high Ability to sleep: sleep is interrupted by symptoms imaging: NM BONE IMG 3 PHASE: PARTIAL BODY 3-PHASE BONE SCAN 02/14/12 17:13:00 COMPARISON: None HISTORY: Left lower leg pain PROCEDURE: Following intravenous administration 24.7 mCi Tc-99m HDP, angiographic images of the feet were obtained at 3 second intervals for the first minute. At five minutes blood pool images were obtained. At 2 1/2 hours following injection, delayed images of the feet were imaged. FINDINGS: The angiographic phase was normal. The tissue phase was also normal. On the delayed phase there is increased uptake at the left lateral malleolus extending 4 cm superiorly. There is also evidence of decreased biomechanical stress on the left leg secondary to the patient's crutch use. IMPRESSION: Normal angiographic and tissue phases bilaterally. Increased uptake on the delayed phase in the left lateral malleolus extending 4 cm superiorly. Evidence of decreased mechanical stress in the left lower extremity secondary to the patient's crutch use. Of note the distal fibula is abnormal despite this. She has the following anxieties or concerns about therapy: she lives in [place] [facility]. She is r equesting family members or friends involved with rehabilitation therapy: Her mother. She i s requesting that another person be present during her initial evaluation: her mother. She h as no preference as to having her physical therapy session in a private room or in the gym. Objective Observation/posture: pt is alone in NAD. She is not using crutches and has minimal if any l imp. . Neuro Screen UE Neuro: Segmental Shoulder Strength [...] negative T1 4 4 negative Baselines Activity 05/03/2012 Walk without crutches 1/4 mile Risks and Benefits of treatment, as well as risks of not receiving recommended treatment, explained/discussed with patient. Patient agrees to proceed with Rx plan as outlined. Treatment provided: Static cervical isometerics in four directions Seated bilateral rows 12.5 lbs 1x10 Seated shoulder scaption AROM 1x10 Seated unilateral Rows 5lbs 1x5 R and L Anterior fontanel Pt education re fight or flight Palmar grasp inhibition Home exercises: Static cervical isometerics in four directions Palmar grasp inhibition Treatment began: 1500hrs Treatment ended: 1545hrs Manual therapy: 0min Therapeutic exercise: 45 min ASSESSMENT: pt presents with improved gait. She is no longer using crutches. She did not di splay fear-avoidance behavior. She does show signs of marked deconditioning and poor toleran ce to activity, evinced by a kind of shaking of her whole body which she reports is not pain ful in itself but is bothersome and is accompanied by increased spontaneous pain in her foot . New goals see below: Date Goals Time Frame Status 05/03/2012 Independent [...] addressed. PLAN: cervical stabilization, upper quarter endurance, Frequency/Duration: Frequency per month: 2 Duration in months: 3 Total visits: 6 Discharge needs: none This note is to serve as the discharge summary if Brody fails to attend further Physical Th erapy appointments or contact the therapist regarding any change in their status. Guillermo Sanon MSPBren [facility] Outpatient Rehabilitation Services Mailcode: Ch3p [address] [facility]st Floor [facility] [address] documented in this encounter Plan of Treatment Not on filedocumented as of this encounter Procedures + +--------+ + + + | Procedure Name | Priori | Date/Time | Associated Diagnosis | Comments | | | ty | | | | + +--------+ + + + | TX THERAPEUTIC | Routin | 05/03/2012 | CRPS (complex | | | EXERCISES | e | 5:18 PM | regional pain | | | [...]
--- OUTSIDE RECORDS SUMMARY | ~2020-07-04 | XMS | Encounter Summary ---
Demographics + + + | Address | [address] | | | [place] [address] | + + + | Home Phone [...] Providers + +------+ + | Care Assistant Finance Manager Name | Role | Phone | [...] + + | 09/30/ | Telephone | [facility] Ilene | Ilene Bright, | Phone communication | | 2017 | | Pain Center at | [facility] [address] | | | | | [facility] | [place], [place] | | | | | [address] | [address] | | | | | [facility] | [phone] | | | | | and Healing, | | | | | | Building | | | | | | Floor [facility] [place] | | | | | | [address] | | | | | | [phone] | | | +--------+ + + + [...]
--- OUTSIDE RECORDS SUMMARY | ~2020-07-04 | XMS | Encounter Summary ---
Demographics + + + | Address | [address] | | | [place] [address] | + + + | Home Phone [...] Author + + + | Author | [facility] | + + + | Organization | [facility] | + + + | Address | Unknown | + + + | Phone | Unavailable | + + + Support + + +---------+ + | Name | Relationship | Address | Phone | + + +---------+ + | Patricia Colin | ECON | Unknown | | + + +---------+ + Care Team Providers + +------+ + | Care Handle Rounder Operator Name | Role | Phone | + +------+ + | Justo Vazquez MD | PCP | | + +------+ + Encounter Details +--------+ + + + + | Date | Type | Department | Care Team | Description | +--------+ + + + + | 01/09/ | Documentati | Orthopaedics | Ranjeet Amanda, | | | 2018 | on | [facility] at [facility] | [address] | | | | | for Health and | [place], [place] | | | | | Healing [address] | [address] | | | | | [address] [place] for | [phone] | | | | | Health and Healing, | | | | | | | | | | | | Floor [facility] [place] | | | | | | [address] | | | | | | [phone] | | | +--------+ + + + [...]
--- OUTSIDE RECORDS SUMMARY | ~2020-07-04 | XMS | Encounter Summary ---
Demographics + + + | Address | [address] | | | [place] [address] | + + + | Home Phone | | + + + | Preferred Language | Unknown | + + + | Marital Status | Single | + + + | Sabianist Affiliation | FMD | + + + [...] Team Providers + +------+ + | Care Copy Holder Name | Role | Phone | + [...] | | 2017 | | Center at [facility] [address] | | Review | | | | [address] [facility] | | | | | | for Health and | | | | | | [facility], [facility] [address] | | | | | | [place], [place] | | | | | | [address] | | | | | | [phone] | | | +--------+ + + + [...]
--- OUTSIDE RECORDS SUMMARY | ~2020-07-04 | XMS | Encounter Summary ---
Demographics + + + | Address | [address] | | | [place] [address] | + + + | Home Phone | | + + + | Preferred Language | Unknown | + + + | Marital Status | Single | + + + | Anabaptist Affiliation | FMD | + + + [...] Team Providers + +------+ + | Care Tape Machine Tailer Name | Role | Phone | + +------+ + | Justo Vazquez MD | PCP | | + +------+ + Encounter Details +--------+ + + + + | Date | Type | Department | Care Team | Description | +--------+ + + + + | 01/12/ | Telephone | Digestive Health | Kenny Gaspar MD | | | 2016 | | [place] [address] [address] | | | | | [address] [facility] | | | | | | for Health and | | | | | | [facility], [address] | | | | | | [place], [place] | | | | | | [address] | | | | | | [phone] | | | +--------+ + + + [...] + | Diagnosis | + + | Weight loss - Primary Loss of weight | + + documented in this encounter"
--- OUTSIDE RECORDS SUMMARY | ~2020-07-04 | XMS | Encounter Summary ---
Demographics + + + | Address | [address] | | | [place] [address] | + + + | Home Phone | | + + + | Preferred Language | Unknown | + + + | Marital Status | Single | + + + | Pentecostalism Affiliation | FMD | + + + [...] Team Providers + +------+ + | Care Field Service Coordinator Name | Role | Phone | [...] Description | +--------+---------+ + + + | 12/05/ | Surgery | [facility] | Alex Sanchez, | BILATERAL DORSAL | | 2019 | [facility] | ,PhD [address] [facility] [address] | ROOT GANGLION SPINAL | | | | and Healing Surgery | [address] | CORD STIMULATOR | | | | Center Admitting | [place], [place] | IMPLANT LUMBAR; | | | | Desk Located on the | [address] | POSTERIOR | | | | 4th floor [address] | [phone] | | | | | [address] [place], | | | | | | [place] [address] | | | +--------+---------+ + + + [...] + + + | Blood Pressure | 110/60 | 12/05/2018 12:15 PM | | | | | PST | | + + + + + | Pulse | 77 | 12/05/2018 12:15 PM | | | | | PST | | + + + + + | Temperature | 36.9 C (98.4 F) | 12/05/2018 12:15 PM | | | | | PST | | + + + + + | Respiratory Rate | 15 | 12/05/2018 12:15 PM | | | | | PST | | + + + + + | Oxygen Saturation | 100% | 12/05/2018 12:15 PM | | | | | PST | | + + + + + | Inhaled Oxygen | - | - | | | Concentration | | | | + + + + + | Weight | 80.3 kg (177 lb) | 12/05/2018 6:29 AM | | | | | PST | | + + + + + | Height | 162.6 cm (5' 4") | 12/05/2018 6:29 AM | | | | | PST | | + + + + + | Body Mass Index | 30.38 | 12/05/2018 6:29 AM | | | | | PST | | + + + + + documented in this encounter Discharge Instructions Instructions Kike Ribeiro RN - 12/05/2018 Nursing Disc harge Instructions General discharge instructions for same-day procedure patients: Remember that you are under the influence of medication. Do not stay alone. A responsible person should be with you. Do not drive, drink alcohol or make important personal or business decision for 24 hours . Resume normal activity and return to work when advised by your Doctor. Pain Management: 10mg Oxycodone at 12:00pm and 12.5mg promethazine at 11:50 Please follow your Doctor's instructions on the medication bottle. Do not take pain medication on an empty stomach, as this may cause nausea and vomiting. Do not drive or drink alcohol while on narcotic pain medication. Diet: If you do not experience nausea or vomiting resume your regular diet. Eat lightly and av oid large, high fat or highly spiced meals for 24-48 hours. Constipation can be a side effect of narcotic pain medication. Take stool softeners, in crease dietary fiber and drink plenty of water to prevent this. Wound/Dressing/Drain Care: Change your dressing according to your Doctor's instructions. You may place a bandaid o n incisional site if needed. Change bandaid daily. Call your Doctor if there is excessive bleeding, redness, swelling or drainage at the o perative site. IV Site Care Instructions: Monitor IV site for pain, redness, swelling and/or drainage. If present, call your Doct or immediately. Minor redness and/;or tenderness may be treated with warm, moist compresses for 24-48 ho urs, If the area is still red and/or tender after this, notify your Doctor. Call 911 if you experience difficulty breathing or unusual shortness of breath. Additional Home Care Instructions: After arriving home you may receive a patient satisfaction survey from "Arie Roe". Elliot lopez appreciate your feedback on the survey to help us provide excellent service to you and your families. Prevention of DVT (deep vein thrombosis) 1. Get up and move 2. Do ankle exercises Signs and symptoms of DVT 1. Redness, Swelling, warmth and tenderness in calf. 2. Sharp pain in calf when you point your toes towards you body. documented in this encounter Medications at Time of [...] documented as of this encounter Progress Notes Aleta Rebollar MD - 12/05/2018 7:13 AM PSTUpdate H&P S: No new changes in health. Ms. Farah reports no changes in terms of her health or medina ges in medications. She has been in her usual state of health. Her symptoms have returned to baseline since her trial leads have been removed. O: Gen: A+O x 4 NAD CV: RRR Resp: CTAB anterior lung sabillon Neuro: grossly normal A/P: 28 year old female patient with a history of CRPS s/p successful DRG trial lead system with [employer] on 09/25/2018. No changes in H&P, plan to proceed with DRG lead and IPG implantation. Aleta Rebollar MD Pain Fellow documented in t his encounter Plan of Treatment Not on filedocumented as of this encounter Procedures + +--------+ + + + | Procedure Name | Priori | Date/Time | Associated Diagnosis | Comments | | | ty | | | | + +--------+ + + + | X-RAY PAIN CLINIC | Routin | 12/05/2018 | | Results for this | | FLUORO | e | 2:39 PM | | procedure are in the | | | | PST | | results section. | + +--------+ + + + | INSERTION OF | Routin | 12/05/2018 | | Results for this | | PERMANENT SPINAL | e | 12:52 PM | | procedure are in the | | CORD STIMULATOR | | PST | | results section. | + +--------+ + + + | PROCEDURE NOTE | Routin | 12/05/2018 | | Results for this | | | e | 12:52 PM | | procedure are in the | | | | PST | | results section. | + +--------+ + + + | IMPLANT SPINAL CORD | Electi | 12/05/2018 | [id number] - COMPLEX | | | STIMULATOR GENERATOR | ve | 7:41 AM | REGIONAL PAIN | | | | Surgic | PST | SYNDROME TYPE 1 OF | | | | al | | LEFT LOWER EXTREMITY | | + +--------+ + + + | HCG URINE, POC | Routin | 12/05/2018 | | Results for this | | | e | 6:46 AM | | procedure are in the | | | | PST | | results section. | + +--------+ + + + | INTRAPROCEDURE | Routin | 12/05/2018 | | Results for this | | IMAGING | e | 6:14 AM | | procedure are in the | | | | PST | | results section. | + +--------+ + + + documented in this encounter Results X-RAY PAIN CLINIC FLUORO (12/05/2018 2:39 PM PST) + + | Specimen | + + | | + + + + + | Narrative | Performed At | + + + | - At the time of the study, no professional interpretation was | | | requested. - | | + + + PROCEDURE NOTE (12/05/2018 12:52 PM PST)INSERTION OF PERMANENT SPINAL CORD STIMULATOR (11/15 12:52 PM PST) + + + | Narrative | Performed At | + + + | Alex Sanchez MD,PhD 12/06/2018 9:20 AM PROVIDER | | | OPERATIVE NOTE Date: December 05, 2018 Location: [facility] [place] | | | Tracie Farah [id number] :1990, presents to clinic | | | for: Dorsal root ganglion stimulator implant PROCEDURE: Dorsal | | | root ganglion stimulator implant PRE-OPERATIVE DIAGNOSIS: Complex | | | regional Pain syndrome type 1 of left lower extremity | | | POST-OPERATIVE DIAGNOSIS: Complex regional Pain syndrome type 1 of | | | left lower extremity ATTENDING PHYSICIAN: Alex Sanchez | | | SPUD GRADER: Arben Valerio MD ANESTHESIA: sedation by IVIS oCle | | | Carmen, supervised by business continuity coordinator Ilir Valdes. | | | FINDINGS: Appropriate spread of IV contrast in the location of the | | | stellate ganglia without vascular or epidural uptake. IV Fluids: | | | per anesthesia record Estimated Blood Loss: minimal Drains, | | | Specimens, Complications: None INDICATIONS: Tracie Farah | | | has a history of Complex regional Pain syndrome type 1 of left | | | lower extremity. I reviewed the Registered Nurse's pre-sedation | | | report and agree to the plan. The patient was deemed an appropriate | | | candidate to undergo the planned procedure. ASA Physical Status 2. | | | PROCEDURE IN DETAIL: Prior to the procedure, I had a PARQ | | | discussion with Tracie Farah, and she gave written consent | | | for procedure and sedation. Ms. Farah was escorted to the [facility] | | | [place], where she was positioned Prone on the examination table. | | | TEAM PAUSE: The physician-led pause was conducted, and is documented | | | in the Nursing note. Monitors were placed, including ECG, NIBP | | | and SpO2. The skin was prepared with Chloroprep and sterile drapes | | | were applied. The patient was positioned supine, and the L4 and | | | L5 vertebral bodies were identified in the AP view. | | | DESCRIPTION: DUAL LEAD ARRANGEMENT (2 LEADS) , 4 CONTACT LEAD LEFT | | | L4 PLACEMENT FOR SPINAL MODULATION OF DRG AT L4 LEFT L5 PLACEMENT | | | FOR SPINAL MODULATION OF DRG AT L5 2 PREPACKAGED SHEATHS WERE USED | | | TO AID IN PLACEMENT OF THE 2 LEADS OPERATIVE PROCEDURE: Pt was | | | brought to the operating room and was placed in the prone position. | | | Pt was then prepped and draped in the usual sterile fashion with | | | DURAPREP AND CHLORHEXIDINE . A pocket site was identified just | | | above the right iliac crest. Local anesthetic consisting of a 50:50 | | | mixture of 2% Lidocaine and 1 : 200,000 epinephrine and bupivacaine | | | 0.5% was administered in the region and a 5 centimeter incision was | | | made. A subcutaneous pocket was then created with a blunt dissection | | | technique and electrocautery for placement of the [employer] | | | [employer] implantable pulse generator. With fluoroscopic | | | guidance the location of the desired site for placement of the | | | percutaneous leads was identified (the target being left L4 | | | neuroforamen) and local anesthetic was injected subcutaneously over | | | the area. A 25G spinal needle was used to infiltrate the path of the | | | Tuohy needle. A right para-median, antegrade approach using a 14G | | | Tuohy needle was used, aiming the tip of the needle to midline of | | | the interlaminar window of the L4/L5 space. The needle tip was also | | | directed to aim towards the left L4 foramen. Then loss of | | | resistance to air technique was used to enter the epidural space | | | with negative aspiration for blood or CSF. The lead was then loaded | | | onto a prepacked sheath which was reintroduced through the needle. | | | The sheath and the lead were advanced towards the superior part of | | | the left L4 foramen, under the left L4 pedicle where the DRG - | | | Dorsal Root Ganglion - for that level resides. The lead was | | | introduced about 2 cm outside the foramen to make sure the path was | | | free of any obstruction . Resistance was not encountered. The lead | | | was introduced so as to have at least 2 contacts placed under the | | | pedicle, between the medial and lateral borders of the pedicle. Once | | | the correct placement of the lead was confirmed by repeated | | | fluroscopic images in AP and lateral (to ensure dorsal placement) | | | the sheath was withdrawn to the tip of the needle making sure the | | | lead did not migrate during the withdrawal. Holding the sheath back | | | , the part of the lead in the epidural space was advanced in such a | | | way as to move the contact placement however to create a superior | | | strain relief loop of the lead wire above the level of the foramen | | | to the level of the disc above. A similar strain relief loop was | | | created inferior to the loop. These loops provide the stability of | | | the lead in a figure of eight fashion to prevent any lead migration. | | | The procedure was repeated from the right side one level down to | | | access the left L5 neuroforamen. A right para-median, antegrade | | | approach using a 14G Tuohy needle was used, aiming the tip of the | | | needle to midline of the interlaminar window of the L5/S1 space. The | | | needle tip was also directed to aim towards the left L5 foramen. | | | Then loss of resistance to air technique was used to enter the | | | epidural space with negative aspiration for blood or CSF. The lead | | | was then loaded onto a prepacked sheath which was reintroduced | | | through the needle. The sheath and the lead were advanced towards | | | the superior part of the left L5 foramen, under the left L5 pedicle | | | where the DRG - Dorsal Root Ganglion - for that level resides. The | | | lead was introduced about 2 cm outside the foramen to make sure the | | | path was free of any obstruction. Resistance was not encountered. | | | The lead was introduced so as to have at least 2 contacts placed | | | under the pedicle, between the medial and lateral borders of the | | | pedicle. Once the correct placement of the lead was confirmed by | | | repeated fluroscopic images in AP and lateral (to ensure dorsal | | | placement) the sheath was withdrawn to the tip of the needle making | | | sure the lead did not migrate during the withdrawal. Holding the | | | sheath back , the part of the lead in the epidural space was | | | advanced in such a way as to move the contact placement however to | | | create a superior strain relief loop of the lead wire above the | | | level of the foramen to the level of the disc above. A similar | | | strain relief loop was created inferior to the loop. These loops | | | provide the stability of the lead in a figure of eight fashion to | | | prevent any lead migration. The screen cable connectors were then | | | joined to the leads and the screen cables were then connected to the | | | [employer] cash posting representative. A test stimulation was performed and once | | | we ensured adequate coverage of the painful areas. The sheath was | | | withdrawn in the needle. The sheaths were taken out of the | | | needles, followed by the needle and the stylet out of the lead, in | | | that order under short live fluoroscopy ensuring no migration of the | | | lead . An approximately 1.5 cm longitudinal incision was made at | | | each needle site. The incision was dissected down to the | | | subcutaneous space. Hemostasis was established and local anesthetic | | | was delivered at the tunneling sites subcutaneously. The leads were | | | tunneled from the inferior most incision to the superior incision | | | and then to the generator pocket using the tunneling tool. The leads | | | were then inserted into the implantable pulse generator and the | | | screws were tightened with the hex wrench. The generator was then | | | introduced into the pocket and remote tested to ensure adequate | | | placement of the leads into the IPG. Surgical wounds were then | | | irrigated with antibiotic solution and vancomycin powder was placed | | | in the wounds and massaged in the tissues. The wounds were closed | | | with #3-0 Polysorb sutures in two layers. The smaller needle wounds | | | were closed with a single layer of #3-0 Polysorb. The skin was | | | closed with V-Loc sutures and Dermabond was applied generously. | | | No specimens collected. The patient had additional programming in | | | the recovery room and he was provided with comprehensive | | | instructions for post op care. A oxycodone and promethazine | | | prescription was provided for post procedural pain and nausea. | | | Ms. Farah was transported to the PACU where she made an | | | uneventful recovery. Images were saved, and sent to [employer]. | | | Alex Sanchez (attending) was present for the entire procedure. | | | Arben Valerio MD I was present for the entire procedure | | | (spinal cord stimulator implantation with DRG leads at left L4 and | | | L5) and all bocanegra elements of this visit. I reviewed the | | | documentation of the other OFFSET LABEL REWINDER providers and concur with | | | Iman's findings. I edited his note. Alex Sanchez, | | | ,PhD [facility] | | | [facility] | | + + + HCG URINE, POC (12/05/2018 6:46 AM PST) + + + + + + | Component | Value | Ref Range | Performed | Pathologist | | | | | At | Signature | + + + + + + | HCG URINE, | Negative | Negative | [facility], | | | POC | | | POINT OF | | | | | | CARE TESTS | | + + + + + + + + | Specimen | + + | Urine - Urine | | (substance) | + + + + + + + | Performing | Address | City/State/Zipcode | Phone Number | | Organization | | | | + + + + + | [facility] | [address] | [place] [address] | | | OF CARE TESTS | | | | + + + + + INTRAPROCEDURE IMAGING (12/05/2018 6:14 AM PST) + + | Specimen | + + | | + + + + + | Narrative | Performed At | + + + | See admission or procedure notes for details of any intraprocedure | | | images obtained. | | + + + documented in this encounter Visit Diagnoses Not on filedocumented in this encounter Administered Medications + +---------+ +------+------+ + | Medication Order | MAR | Action | Dose | Rate | Site | | | Action | Date | | | | + +---------+ +------+------+ + | bacitracin-NS IRRIGATION | New Bag | 12/05/19 | | | Surgical | | INTRAPROCEDURE CONTINUOUS PRN, | | 19 8:30 | | | Site | | Starting 12/05/18 at 0830, | | AM PST | | | | | Until e 12/05/18 at 0830 | | | | | | + +---------+ +------+------+ + +---+---+ | | | +---+---+ + +-------+ +-------+---+---+ | heparin 100 unit/mL IV flush | Given | 12/05/19 | 500 | | | | 500 Units 500 Units, | | 19 12:36 | Units | | | | intravenous, NEEDED, Starting | | PM PST | | | | | 12/05/18 at 1223, Until Tue | | | | | | | 12/05/18 at 1906, deaccessing | | | | | | | line/port | | | | | | + +-------+ +-------+---+---+ +---+---+ | | | +---+---+ + + + +---+---+---+ | lactated Ringers IV 10 mL/hr, | given by | 12/05/19 | | | | | intravenous, PROCEDURE | | 19 10:44 | | | | | CONTINUOUS, Starting 12/05/18 | anesthes | AM PST | | | | | at 0615, Until 12/05/18 at | iology | | | | [...] PST | | | | +---------+ +---+---+---+ + +---+ | | | + +---+ | lidocaine (XYLOCAINE) 10 mg/mL | | | (1 %) injection subcutaneous, | | | PREPROCEDURE PRN, Starting Tue | | | 12/05/18 at 0614, Until Tue | | | 12/05/18 at 1906, IV start | | + +---+ | | | + +---+ + +-------+ +-------+---+ + | lidocaine 1% w/ EPI | Given | 12/05/19 | 18 mL | | Surgical | | 1:100K-bupivacaine 0.5% injection | | 19 9:45 | | | Site | | INTRAPROCEDURE PRN, Starting | | AM PST | | | | | 12/05/18 at 0808, Until Tue | | | | | | | 12/05/18 at 1038 | | | | | | + +-------+ +-------+---+ + +-------+ +-------+---+ + | Given | 12/05/19 | 16 mL | | Surgical | | | 19 8:29 | | | Site | | | AM PST | | | | +-------+ +-------+---+ + | Given | 12/05/19 | 20 mL | | Surgical | | | 19 8:08 | | | Site | | | AM PST | | | | +-------+ +-------+---+ + +---+---+ | | | +---+---+ + +-------+ +-------+---+---+ | oxyCODONE (immediate release) | Given | 12/05/19 | 10 mg | | | | (ROXICODONE) tablet 5-10 mg 5-10 | | 19 12:00 | | | | | mg, oral, EVERY 4 HOURS | | PM PST | | | | | NEEDED, Starting 12/05/18 at | | | | | | | 1057, Until 12/05/18 at 1906, | | | | | | | severe pain | | | | | | + +-------+ +-------+---+---+ +---+---+ | | | +---+---+ + +-------+ +---------+---+---+ | promethazine (PHENERGAN) tablet | Given | 12/05/19 | 12.5 mg | | | | 12.5 mg 12.5 mg, oral, | | 19 11:50 | | | | | NEEDED, 1 dose, Starting Tue | | AM PST | | | | | 12/05/18 at 1138, Until Tue | | | | | | | 12/05/18 at 1150, nausea/vomiting, | | | | | | | first line | | | | | | + +-------+ +---------+---+---+ +---+---+ | | | +---+---+ + +-------+ + +---+ + | vancomycin (VANCOCIN) injection | Given | 12/05/19 | 1,000 mg | | Surgical | | INTRAPROCEDURE PRN, Starting | | 19 9:39 | | | Site | | 12/05/18 at 0939, Until Tue | | AM PST | | | | | 12/05/18 at 1038 | | | | | | + +-------+ + +---+ + +---+---+ | | | +---+---+ documented in this encounter
--- OUTSIDE RECORDS SUMMARY | ~2020-07-04 | XMS | Encounter Summary ---
Demographics + + + | Address | [address] | | | [place] [address] | + + + | Home Phone [...] Team Providers + +------+ + | Care Travel Service Consultant Name | Role | Phone | + +------+ + | Justo Vazquez MD | PCP | | + +------+ + Reason for Visit + + + | Reason | Comments | + + + | Education procedure | preprocedure education [facility] | + + + Encounter Details +--------+ + + + + | Date | Type | Department | Care Team | Description | +--------+ + + + + | 09/14/ | Telephone | [facility] | Alex Sanchez, | Education procedure | | 2018 | | Pain Center at | ,PhD [address] | (preprocedure | | | | [facility] | [address] | education [facility]) | | | | [address] | [place], [place] | | | | | [facility] | [address] | | | | | and Healing, | [phone] | | | | | | | | | | | Floor [place], [place] | | | | | | [address] | | | | | | [phone] | | | +--------+ + + + [...]
--- OUTSIDE RECORDS SUMMARY | ~2020-07-04 | XMS | Encounter Summary ---
Demographics + + + | Address | [address] | | | [place] [address] | + + + | Home Phone [...] Team Providers + +------+ + | Care Material Dispatcher Name | Role | Phone | + [...] Oliveira | | 2011 | IP | [address] | | House - Approved | | | | [place], | | | | | | [place] [address] | | | +--------+ + + + [...]
--- OUTSIDE RECORDS SUMMARY | ~2020-07-04 | XMS | Encounter Summary ---
Demographics + + + | Address | [address] | | | [place] [address] | + + + | Home Phone [...] Team Providers + +------+ + | Care Civil Celebrant Name | Role | Phone | + +------+ + | Justo Vazquez MD | PCP | | + +------+ + Encounter Details +--------+ + + + + | Date | Type | Department | Care Team | Description | +--------+ + + + + | 03/17/ | MyChart | [facility] Comprehensive | Yun Frey NP | Welcome | | 2017 | Encounter | Pain Center at | [address] | | | | | [facility] | [place], [place] | | | | | [address] | [address] | | | | | [place] [facility] | [phone] | | | | | and Healing, | | | | | | | | | | | | Floor [place], [place] | | | | | | [address] | | | | | | [phone] | | | +--------+ + + + [...]
--- OUTSIDE RECORDS SUMMARY | ~2020-07-04 | XMS | Encounter Summary ---
Demographics + + + | Address | [address] | | | [place] [address] | + + + | Home Phone [...] Team Providers + +------+ + | Care Manager Oracle Name | Role | Phone | + [...] and Wellness | MD Juan [address] | | | | | and Healing Surgery | [address] | | | | | Center Admitting | [place], [place] | | | | | Desk Located on the | [address] | | | | | 4th floor [address] | [phone] | | | | | [address] [place], | | | | | | [place] [address] | Arben Valerio MD | | | | | | [address] | | | | | | [address] | | | | | | [place], [place] | | | | | | [address] | | | | | | [phone] | | | | | | | [...]
--- OUTSIDE RECORDS SUMMARY | ~2020-07-04 | XMS | Encounter Summary ---
Demographics + + + | Address | [address] | | | [place] [address] | + + + | Home Phone [...] Team Providers + +------+ + | Care Bundle Person Name | Role | Phone | + [...] CRPS | Janak Martinez MD | [address] | | | | Management | (complex | [address] | | | | | regional | [address] | Center for | | | | | pain | Mailstop | Health and | | | | | syndrome), | [id number] | Healing, | | | | | lower limb | [place], [place] | Building | | | | | Gait | [address] | 1,15th Floor | | | | | disturbance | Phone: | [place], [place] | | | | | Muscle pain | [phone] | [address] | | | | | Procedures | Fax: | Phone: | | | | | CONSULT TO | [phone] | [phone] | | | | | PAIN CENTER | | Fax: | | | | | | | [phone] | +--------+--------+ + + + + Encounter Details +--------+---------+ + + + | Date | Type | Department | Care Team | Description | +--------+---------+ + + + | 03/20/ | Office | Pain Center at [facility] | Shelia Feldman, PhD | Unspecified | | 2011 | Visit | [address] | | adjustment reaction | | | | Center for Health | | (Primary Dx) | | | | and Healing, | | | | | | Building | | | | | | Floor [place], [place] | | | | | | [address] | | | | | | [phone] | | | +--------+---------+ + + + [...] [facility] Name: Tracie Farah MR#: [id number] Date of : 1990 Date: March 20, 2012 Attending Psychologist: SHELIA FELDMAN, PHD CPT: 69521 Duration: 60min Psych: 309.0 Pain: 355.71 Tracie arrived on time for today's appointment, casually dressed and neatly groomed. Affect was appropriate, mood normothymic. She drove herself today and used crutches. She stated t hat she was doing "better", mainly because she has returned to work at [employer]. She is wo rking about 2 hour shifts; her pain is flared during work but she feels good because she is engaging in life and also is earning money. She reported that she has been cutting down on her pain medication because she wants to improve cognition (currently taking 1-2 daily at [facility] for [facility]). She notes that she cannot [...] discretion, not currently planned. SHELIA FELDMAN, PHD Technical Communication Teacher Licensed Clinical Psychologist [facility] [place] Department of Anesthesiology & Perioperative Medicine [facility] [address] [place], [place] [id number] Historical Information: Introduction: Tracie Farah is a 21-year-old woman with >5 year hx of CRPS, R LE.S ocial & Psychiatric History: Tracie Farah lives in [place] in a shared apartment space. She has struggled wi th CRPS for at least 5 years; original injury to her foot was in 2001. In summer 2010 she h ad inpt pain tx at [facility] with limited prison benefit. Recent flare; she arrived using crutches [...] She learned some pain management techniques at [facility], mainly DB and PMR, which she [...] Travel is a barrier; she lives in [place] DSM-IV Diagnoses/Impressions: [place] I: 1. 309.9 Unspecified Adjustment Reaction 2. 780.50 Sleep Disturbance [place] II: Deferred. [place] III: Patient Active Problem List Diagnoses CRPS (complex regional pain syndrome), lower limb Gait disturbance Muscle pain Adjustment reaction [place] IV: CRPS pain, pain related debility;difficulty attending class, working; family stres s; stalker ex-bf [place] V: Global Assessment of Functioning = 75 [...] me should questions arise. SHELIA FELDMAN, PHD Technical Communication Teacher Licensed Clinical Psychologist [facility] [place] Department of Anesthesiology & Perioperative Medicine [facility] [address] [place] [address] documented in this enc ounter Plan of Treatment Not on filedocumented as of this encounter Visit Diagnoses + + | Diagnosis | + + | Unspecified adjustment reaction - Primary | + + documented in this encounter
--- OUTSIDE RECORDS SUMMARY | ~2020-07-04 | XMS | Encounter Summary ---
Demographics + + + | Address | [address] | | | [place] [address] | + + + | Home Phone | | + + + | Preferred Language | Unknown | + + + | Marital Status | Single | + + + | Methodist Affiliation | FMD | + + + [...] Team Providers + +------+ + | Care Gsa Coordinator Name | Role | Phone | + +------+ + | Justo Vazquez MD | PCP | | + +------+ + Encounter Details +--------+ + + + + | Date | Type | Department | Care Team | Description | +--------+ + + + + | 03/12/ | Warehouse Packaging Supervisor | [facility] | Alex Sanchez, | Complex regional | | 2019 | | Pain Center at | ,PhD [address] [facility] | pain syndrome type 1 | | | | [facility] | [address] | of left lower | | | | [address] | [place], [place] | extremity; S/P | | | | Center for Health | [address] | insertion of spinal | | | | and Healing, | [phone] | cord stimulator | | | | | | | | | | Floor [place], [place] | | | | | | [address] | | | | | | [phone] | | | +--------+ + + + [...]
--- OUTSIDE RECORDS SUMMARY | ~2020-07-04 | XMS | Encounter Summary ---
Demographics + + + | Address | [address] | | | [place] [address] | + + + | Home Phone [...] Team Providers + +------+ + | Care Drill Doctor Name | Role | Phone | + [...] | | syndrome | [address] | [facility] | | | | | type 1 of | Rd | Rd [place], | | | | | left lower | [place], [place] | [place] | | | | | extremity | [address] | [address] | | | | | Procedures | Phone: | Phone: | | | | | REQUEST TO | [phone] | [phone] | | | | | SURGERY | Fax: | Fax: | | | | | ELIGIBILITY SERVICES REPRESENTATIVE | [phone] | [phone] | +--------+---------+ + + + + Encounter Details +--------+---------+ + + + | Date | Type | Department | Care Team | Description | +--------+---------+ + + + | 12/07/ | Office | [facility] Comprehensive | Eulogio | Complex regional | | 2019 | Visit | Pain Center at | MD Irene [address] | pain syndrome type 1 | | | | [facility] | [address] [place], | of left lower | | | | [address] | [place] [address] | extremity (Primary | | | | [facility] | [phone] | Dx); S/P insertion | | | | and Healing, | | of spinal cord | | | | Building , | | stimulator | | | | Floor [place], [place] | | | | | | [address] | | | | | | [phone] | | | +--------+---------+ + + + [...] Lujan MD - 12/07/2018 9:10 AM PST [facility] Return Visit Date: 12/07/2018 Chief Complaint Patient presents with Back pain Pain in left leg History of Present Illness: Tracie Farah is a 28 year old female, whose last appoi ntment at the [facility] was December 05, 2018, for a procedure [...] her 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 CLINICAL CASE MANAGER Brief Pain Inventory: (ten= worst possible [...] Hemroidectomy Trial spinal cord stimulator leads 08/02/2012 [facility], Surgeon: Janak Riojas MD Cholecystectomy Appendectomy [...] History Social History Narrative Single. Goes to [employer] with a light load. Has been working at [employer], can' t work on [employer]. Has roommates. Allergies Allergen Reactions Morphine Anaphylaxis [...] GRAM-5.86 GRAM SOLUTION Take as directed by [facility]- 2 gallon bowel prep POLYETHYLENE [...] and summary of old medical records (source: [email or web address]), as summarized in the body of the [...] her today. I discussed this with Alex longroia MD, PhD who agreed for a prescription [...] the templating of this note for Irene Krishnna MD but was not physically present for the encounter. Irene Krishnan MD [facility] [place] [id number] [facility], 4th Floor Mail Code: [address] [id number] documented in thi s encounter Plan of Treatment Not on filedocumented as of this encounter Visit Diagnoses + + | Diagnosis | + + | Complex regional pain syndrome type 1 of left lower extremity - Primary | + + | S/P insertion of spinal cord stimulator | + + documented in this encounter
--- OUTSIDE RECORDS SUMMARY | ~2020-07-04 | XMS | Encounter Summary ---
Demographics + + + | Address | [address] | | | [place] [address] | + + + | Home Phone [...] Team Providers + +------+ + | Care Stock Hanger Name | Role | Phone | + +------+ + | Justo Vazquez MD | PCP | | + +------+ + Encounter Details +--------+ + + + + | Date | Type | Department | Care Team | Description | +--------+ + + + + | 10/03/ | Telephone | [facility] | Ilene Bright, | | | 2017 | | Pain Center at | STORE STOCKER [address] | | | | | [facility] | [place], [place] | | | | | [address] | [address] | | | | | [place] for [facility] | [phone] | | | | | and Healing, | | | | | | | | | | | | Floor [place], [place] | | | | | | [address] | | | | | | [phone] | | | +--------+ + + + [...]
--- OUTSIDE RECORDS SUMMARY | ~2020-07-04 | XMS | Encounter Summary ---
Demographics + + + | Address | [address] | | | [place] [address] | + + + | Home Phone [...] Providers + +------+ + | Care General Manager Farm Name | Role | Phone | + +------+ + | Justo Vazquez MD | PCP | | + +------+ + Reason for Visit + + + | Reason | Comments | + + + | Question | Sitz Marker instructions | + + + Encounter Details +--------+ + + + + | Date | Type | Department | Care Team | Description | +--------+ + + + + | 12/22/ | Telephone | Digestive Health | Ava Carbajal | Question (Sitz | | 2017 | | Center at [facility] [address] | MD Melissa | Marker instructions) | | | | [address] [facility] | | | | | | for Health and | | | | | | Healing, Building 2 | | | | | | [place], [place] | | | | | | [address] | | | | | | [phone] | | | +--------+ + + + [...]
--- OUTSIDE RECORDS SUMMARY | ~2020-07-04 | XMS | Encounter Summary ---
Demographics + + + | Address | [address] | | | [place] [address] | + + + | Home Phone | | + + + | Preferred Language | Unknown | + + + | Marital Status | Single | + + + | Yazdanism Affiliation | 1073 | + + + | Race | White | + + + | Ethnic Group | Not or | + + + Author + + + | Author | [facility] | | | and [place] | + + + | Organization | [facility] | | | [...] [place] | | | | | [address] | | + + + + + | Bryant Farah | ECON | Unknown | | + + + + + Care Team Providers + +------+ + | Care Applied Computer Science Professor Name | Role | Phone | + +------+ + PCP | Unavailable | + +------+ + Encounter Details +--------+ + + + + | Date | Type | Department | Care Team | Description | +--------+ + + + + | 03/16/ | Hospital | [facility] | Conversion | Back pain | | 2012 | Encounter | CONVERSION [address] | Transaction, | | | | | [address] | Provider Unknown | | | | | [place], [place] | [phone] | | | | | [address] | | | | | | [phone] | | | +--------+ + + + [...]
--- OUTSIDE RECORDS SUMMARY | ~2020-07-04 | XMS | Encounter Summary ---
Demographics + + + | Address | [address] | | | [place] [address] | + + + | Home Phone [...] Team Providers + +------+ + | Care Composition Tile Layer Name | Role | Phone | + [...] + + | 10/07/ | Telephone | [facility] Comprehensive | Yosef Kenney MD | Wound infection | | 2018 | | Pain Center at | [address] | (Concern for DRG | | | | [facility] | [address] [place], | trial wound | | | | [address] | [place] [address] | infection) | | | | [place] [facility] | [phone] | | | | | and Healing, | | | | | | | | | | | | [place], [place] | | | | | | [address] | | | | | | [phone] | | | +--------+ + + + [...]
--- OUTSIDE RECORDS SUMMARY | ~2020-07-04 | XMS | Encounter Summary ---
Demographics + + + | Address | [address] | | | [place] [address] | + + + | Home Phone [...] Team Providers + +------+ + | Care Cathode Ray Tube Assembler Name | Role | Phone | + +------+ + | Justo Vazquez MD | PCP | | + +------+ + Encounter Details +--------+ + + + + | Date | Type | Department | Care Team | Description | +--------+ + + + + | 12/12/ | Telephone | [facility] | Alex Sanchez, | | | 2019 | | Pain Center at | ,PhD [address] | | | | | [facility] | [address] | | | | | [address] | [place], [place] | | | | | [place] [facility] | [address] | | | | | and Healing, | [phone] | | | | | | | | | | | Floor [place], [place] | | | | | | [address] | | | | | | [phone] | | | +--------+ + + + [...]
--- OUTSIDE RECORDS SUMMARY | ~2020-07-04 | XMS | Encounter Summary ---
Demographics + + + | Address | [address] | | | [place] [address] | + + + | Home Phone [...] Team Providers + +------+ + | Care Freight Flagman Name | Role | Phone | + [...] | | Pain Center at | ,PhD [address] | denied) | | | | [facility] | [facility] | | | | | [address] | [place], [place] | | | | | [facility] | [address] | | | | | and [place], | [phone] | | | | | [facility] | | | | | | Floor [place], [place] | | | | | | [address] | | | | | | [phone] | | | +--------+ + + + [...]
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
--- OUTSIDE RECORDS SUMMARY | ~2020-07-04 | XMS | Encounter Summary ---
Demographics + + + | Address | [address] | | | [place] [address] | + + + | Home Phone [...] Team Providers + +------+ + | Care Home Improvement Contractor Name | Role | Phone | + [...] | | | | | CRPS | Janak Martinez MD | [facility] [address] | | | | | (complex | [address] | [address] | | | | | regional | [address] | [address] | | | | | pain | [address] | [address], | | | | | syndrome), | [id number] | Basement | | | | | lower limb | [place], [place] | [place], [place] | | | | | Procedures | [address] | [address] | | | | | NM BONE &/[place] | Phone: | Phone: | | | | | JOINT | [phone] | [phone] | | | | | IMAGING 3 | Fax: | Fax: | | | | | PHASE | [phone] | [phone] | +--------+--------+ + + + + Encounter Details +--------+ + + + + | Date | Type | Department | Care Team | Description | +--------+ + + + + | 02/13/ | Hospital | Nuclear Medicine | | | | 2011 | Encounter | at [facility] [address] | | | | | | [address] | | | | | | [place], | | | | | | [place], | | | | | | [place] [address] | | | | | | [phone] | | | +--------+ + + + [...] at Time of Discharge + + + +---------+--------+ + | Medication | Sig | Dispensed | Refills | Start | End Date | | | | | | Date | | + + + +---------+--------+ + | levonorgestrel | 1 Each by [...] | | | | + + + +---------+--------+ + documented as of this encounter Plan of Treatment Not on filedocumented as of this encounter Procedures + +--------+ + + + | Procedure Name | Priori | Date/Time | Associated Diagnosis | Comments | | | ty | | | | + +--------+ + + + | NM BONE &/OR JOINT | Routin | 02/14/2012 | CRPS (complex | Results for this | | IMAGING 3 PHASE | e | 5:13 PM | regional pain | procedure are in the | | | | PDT | syndrome), lower | results section. | | | | | limb | | + +--------+ + + + | ORDERS OTHER | | 02/14/2012 | | Results for this | | [...] Final/Electronically | | | | | | soo / Homer | | | | | [...] | + +---------+ + + ORDERS OTHER (02/14/2012 12:00 AM PDT) + + + | Narrative | Performed At | + + + | | | + + + + + | Transcriptions | + + | Anders Morales - 02/25/2012 2:46 PM PDT | + + documented in this encounter Visit Diagnoses + + | Diagnosis | + + | CRPS (complex regional pain syndrome), lower limb Causalgia of lower limb | + + documented in this encounter"
--- OUTSIDE RECORDS SUMMARY | ~2020-07-04 | XMS | Encounter Summary ---
Demographics + + + | Address | [address] | | | [place] [address] | + + + | Home Phone [...] Team Providers + +------+ + | Care Automobile Spring Repairer Name | Role | Phone | + +------+ + | Justo Vazquez MD | PCP | | + +------+ + Encounter Details +--------+ + + + + | Date | Type | Department | Care Team | Description | +--------+ + + + + | 12/02/ | Document-Sc | Health Information | Unknown . | | | 2017 | anned | Services [address] | | | | | | [address] | | | | | | Mailcode: [id number] | | | | | | [facility] | | | | | | [place], [place] | | | | | | [address] | | | | | | [phone] | | | +--------+ + + + [...]
--- OUTSIDE RECORDS SUMMARY | ~2020-07-04 | XMS | Encounter Summary ---
Demographics + + + | Address | [address] | | | [place] [address] | + + + | Home Phone [...] Team Providers + +------+ + | Care Radius Corner Machine Operator Name | Role | Phone | + +------+ + | Justo Vazquez MD | PCP | | + +------+ + Encounter Details +--------+ + + + + | Date | Type | Department | Care Team | Description | +--------+ + + + + | 07/30/ | Telephone | [facility] | Alex Sanchez, | | | 2019 | | Pain Center at | ,PhD [address] | | | | | [facility] | [address] | | | | | [address] | [place], [place] | | | | | [place] for [facility] | [address] | | | | | and Healing, | [phone] | | | | | | | | | | | Floor [place], [place] | | | | | | [address] | | | | | | [phone] | | | +--------+ + + + [...]
--- OUTSIDE RECORDS SUMMARY | ~2020-07-04 | XMS | Encounter Summary ---
Demographics + + + | Address | [address] | | | [place] [address] | + + + | Home Phone [...] Team Providers + +------+ + | Care Knowledge Analyst Name | Role | Phone | [...] | | 2017 | | Center at [facility] [address] | | | | | | [address] [facility] | | | | | | for Health and | | | | | | Healing, Building [address] | | | | | | [place], [place] | | | | | | [address] | | | | | | [phone] | | | +--------+--------+ + + + [...]
--- OUTSIDE RECORDS SUMMARY | ~2020-07-04 | XMS | Encounter Summary ---
Demographics + + + | Address | [address] | | | [place] [address] | + + + | Home Phone [...] Team Providers + +------+ + | Care Machinist Class B Name | Role | Phone | + [...] [address] | | | | | | [place], [place] | | | | | | [address] | | | +--------+ + + + [...]
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
--- OUTSIDE RECORDS SUMMARY | ~2020-07-04 | XMS | Encounter Summary ---
Demographics + + + | Address | [address] | | | [place] [address] | + + + | Home Phone [...] Team Providers + +------+ + | Care Museum Specialist Name | Role | Phone | [...] | Pain Center at | [address] | | | | | [facility] | [facility] [id number] | | | | | [address] | [place], [place] | | | | | Center for Health | [address] | | | | | and Healing, | [phone] | | | | | [facility] | | | | | | Floor [place], [place] | | | | | | [address] | | | | | | [phone] | | | +--------+ + + + [...]
--- OUTSIDE RECORDS SUMMARY | ~2020-07-04 | XMS | Encounter Summary ---
Demographics + + + | Address | [address] | | | [place] [address] | + + + | Home Phone [...] Providers + +------+ + | Care Public Relations Coordinator Name | Role | Phone | [...] + + | 08/07/ | Refill | [facility] Comprehensive | Alex Sanchez, | Refill Request | | 2018 | | Pain Center at | ,PhD [address] | | | | | [facility] | [address] | | | | | [address] | [place], [place] | | | | | [facility] | [address] | | | | | and Martina, | [phone] | | | | | [facility] | | | | | | Floor [place], [place] | | | | | | [address] | | | | | | [phone] | | | +--------+--------+ + + + [...]
--- OUTSIDE RECORDS SUMMARY | ~2020-07-04 | XMS | Encounter Summary ---
Demographics + + + | Address | [address] | | | [place] [address] | + + + | Home Phone [...] Team Providers + +------+ + | Care Reed Or Wind Instrument Repairer Name | Role | Phone | [...] | (ortho question) | | | | [facility] | [facility] | | | | | [address] | [place], [place] | | | | | [facility] | [address] | | | | | and Healing, | [phone] | | | | | | | | | | | Floor [place], [place] | | | | | | [address] | | | | | | [phone] | | | +--------+ + + + [...]
--- OUTSIDE RECORDS SUMMARY | ~2020-07-04 | XMS | Encounter Summary ---
Demographics + + + | Address | [address] | | | [place] [address] | + + + | Home Phone [...] Team Providers + +------+ + | Care Rig Operator Name | Role | Phone | + +------+ + | Justo Vazquez MD | PCP | | + +------+ + Encounter Details +--------+ + + + + | Date | Type | Department | Care Team | Description | +--------+ + + + + | 12/12/ | Telephone | [facility] | Alex Sanchez, | | | 2019 | | Pain Center at | ,PhD [address] | | | | | [facility] | [address] | | | | | [address] | [place], [place] | | | | | Mar[facility] for [facility] | [address] | | | | | and Healing, | [phone] | | | | | | | | | | | Floor [place], [place] | | | | | | [address] | | | | | | [phone] | | | +--------+ + + + [...]
--- OUTSIDE RECORDS SUMMARY | ~2020-07-04 | XMS | Encounter Summary ---
Demographics + + + | Address | [address] | | | [place] [address] | + + + | Home Phone [...] Team Providers + +------+ + | Care Salon Designer Name | Role | Phone | + +------+ + | Justo Vazquez MD | PCP | | + +------+ + Encounter Details +--------+ + + + + | Date | Type | Department | Care Team | Description | +--------+ + + + + | 04/23/ | Anesthesia | [facility] at [facility] | Aleta Rebollar MD [address] | | | 2019 | Event | [address] | [address] | | | | | [place] [facility] | [place], [place] | | | | | and Healing, | [address] | | | | | | [phone] | | | | | Floor [place], [place] | | | | | | [address] | | | | | | [phone] | | | +--------+ + + + [...]
--- OUTSIDE RECORDS SUMMARY | ~2020-07-04 | XMS | Encounter Summary ---
Demographics + + + | Address | [address] | | | [place] [address] | + + + | Home Phone [...] Team Providers + +------+ + | Care Footwear Sales Representative Name | Role | Phone [...] 2017 | | Center at [facility] [address] | | Review | | | | [address] [facility] | | | | | | for Health and | | | | | | [facility] 2 | | | | | | [place], [place] | | | | | | [address] | | | | | | [phone] | | | +--------+ + + + [...]
--- OUTSIDE RECORDS SUMMARY | ~2020-07-04 | XMS | Encounter Summary ---
Demographics + + + | Address | [address] | | | [place] [address] | + + + | Home Phone [...] Team Providers + +------+ + | Care Elastic Assembler Name | Role | Phone | [...] | | | | [address] [place] | [facility] [place] | | | | | for Health and | [address] | | | | | Healing, [address] | [phone] | | | | | [place], [place] | | | | | | [address] | | | | | | [phone] | | | +--------+ + + + [...]
--- OUTSIDE RECORDS SUMMARY | ~2020-07-04 | XMS | Encounter Summary ---
Demographics + + + | Address | [address] | | | [place] [address] | + + + | Home Phone [...] Providers + +------+ + | Care Electric Dolly Operator Name | Role | Phone | [...] Pain | | 2016 | | Center [place] [address] [address] | | | | | | [facility] | | | | | | for Health and | | | | | | Healing, [address] | | | | | | [place], [place] | | | | | | [address] | | | | | | [phone] | | | +--------+ + + + [...]
--- OUTSIDE RECORDS SUMMARY | ~2020-07-04 | XMS | Encounter Summary ---
Demographics + + + | Address | [address] | | | [place] [address] | + + + | Home Phone [...] Team Providers + +------+ + | Care Security Auditor Name | Role | Phone | + [...] + + | 09/15/ | Telephone | [facility] | Alex Sanchez, | Question | | 2018 | | Pain Center at | ,PhD [address] | | | | | [facility] | [place] [address] | | | | | [address] | [place], [place] | | | | | [facility] | [address] | | | | | and Martina, | [phone] | | | | | Building | | | | | | Floor [place], [place] | | | | | | [address] | | | | | | [phone] | | | +--------+ + + + [...]
--- OUTSIDE RECORDS SUMMARY | ~2020-07-04 | XMS | Encounter Summary ---
Demographics + + + | Address | [address] | | | [place] [address] | + + + | Home Phone [...] Providers + +------+ + | Care Pipe Inspector Name | Role | Phone | + +------+ + | Justo Vazuqez MD | PCP | | + +------+ + Encounter Details +--------+ + + + + | Date | Type | Department | Care Team | Description | +--------+ + + + + | 09/25/ | Pharmacy | [facility] | | | | 2018 | Visit | [facility] | | | | | | [address] | | | | | | Mailcode: [place] | | | | | | [facility] and | | | | | | Healing, [address] | | | | | | [place], [place] | | | | | | [address] | | | | | | [phone] | | | +--------+ + + + [...]
--- OUTSIDE RECORDS SUMMARY | ~2020-07-04 | XMS | Encounter Summary ---
Demographics + + + | Address | [address] | | | [place] [address] | + + + | Home Phone | | + + + | Preferred Language | Unknown | + + + | Marital Status | Single | + + + | Catholic Affiliation | 1073 | + + + | Race | White | + + + | Ethnic Group | Not or | + + + Author + + + | Author | [facility] | | | and [place] | + + + | Organization | [facility] | | | [...] [place] | | | | | [address] | | + + + + + | Bryant Farah | ECON | Unknown | | + + + + + Care Team Providers + +------+ + | Care Information Technology Coordinator Name | Role | Phone | + +------+ + PCP | Unavailable | + +------+ + Encounter Details +--------+ + + + + | Date | Type | Department | Care Team | Description | +--------+ + + + + | 06/22/ | Emergency | [facility] | Chung Portillo | Nondiabetic | | 2016 | | MEDICAL CENTER | DO [address] | gastroparesis | | | | EMERGENCY CENTER | [address] | | | | | [address] | [place], [place] | | | | | [place], [place] | [address] | | | | | [address] | [phone] | | | | | [phone] | | | +--------+ + + + [...] + + + documented in this encounter ED Notes Devante Guerrero MD - 06/23/2016 10:54 AM PDT ED Provider Notes by Devante Guerrero MD at 06/23/161053 Author: Devante Guerrero MD Service: -Emergency Author Type: Physician Filed: 06/23/161053 Date of Service: 06/23/161053 Status: Signed Professor Of Business Administration: Devante Guerrero MD (Physician) Procedures Additional Documentation Procedures Pharmacy called to clarify viscous lidocaine order - there was no frequency specified. I a dvised Q 4 hours PRN. Devante Guerrero MD 06/23/161053 John Mcgee PA-C - 06/22/2016 7:25 PM PDT ED Provider Notes by John Leonard PA-C at 06/22/161924 Author: John Leonard PA-C Service: Emergency Department Author Type: Physician Java Solutions Architect - Certified Filed: 06/22/162104 Date of Service: 06/22/161924 Status: Signed Professor Of Business Administration: John Leonard PA-C (Physician Java Solutions Architect - Certified) Cosigner: Chung Portillo DO at 06/22/16 2312 Procedures [facility] EMERGENCY DEPARTMENT History of Present Illness Patient Identification Tracie Farah is a 26 y.o. female. Patient information was obtained from patient. History/Exam limitations: none. Patient presented to the Emergency Department by: Car Chief Complaint Chief Complaint Patient presents with Abdominal Pain The patient complains of epigastric abdominal pain. Onset of symptoms was 1 week ago, with a unresolved course since that time. The symptoms are described to be of mild to moderate i n severity. The patient also complains of history of gastroparesis. Patient relates "I am chowdhury ving an acute gastroparesis attack.". The patient describes the quality and location of the symptoms as the following: Dull aching cramping epigastric abdominal pain. Care prior to faviola garcia consisted of multiple emergency department evaluations and treatment with Reglan at [facility] and has come to [facility] for, further evaluation and relief. 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 Past Medical History Diagnosis Date Other chronic pain Joint pain Neuromuscular disorder (HCC) Unspecified visual disturbance Past Surgical History Procedure Laterality Date Ankle surgery to 05/2007 8 surgeries total Tonsillectomy 1998 Hemorroidectomy 2008 Spinal cord stimulator - trial 2011 Dr. Beulah BROWN -Failed- Colonoscopy Hardware removal Unlisted procedure arthroscopy ankle left growth plate repair Spine surgery 2011 spinal cord stimulator trial Intrathecal catheter insertion trial 03/20/2013 Procedure: INTRATHECAL CATHETER INSERTION - TRIAL; Surgeon: Ulices Hayes MD; Locati on: [facility]; Service: Pain Management; Laterality: N/A; 10:30 am procedure, please Appendectomy Cholecystectomy Prior to Admission medications Medication Sig Start Date End Date Taking? Authorizing Provider ibuprofen (ADVIL,MOTRIN) 200 MG tablet Take 200 mg by mouth every 6 (six) hours as needed. Yes Historical Provider Ketorolac Tromethamine (TORADOL IM IM) Inject 2 mLs into the muscle every 6 (six) hours as needed. breakthru pain Yes Historical Provider LORazepam (ATIVAN) 2 MG tablet Take 2 mg by mouth every 6 (six) hours as needed. 01/17/13 Ye s Historical Provider Melatonin 5 MG TABS Take by mouth. Yes Historical Provider metoclopramide (REGLAN) 10 MG tablet Take 10 mg by mouth 4 (four) times daily before meals and nightly. Yes Historical Provider pantoprazole (PROTONIX) 40 MG tablet Take 40 mg by mouth every morning before breakfast. Yes Historical Provider promethazine (PHENERGAN) 25 MG tablet Take 15 mg by mouth every 6 (six) hours as needed. 01/17/13 Yes Historical Provider FLUoxetine (PROZAC) 20 MG capsule 4/17/13 8/9/16 Historical Provider HYDROcodone-acetaminophen (NORCO) 10-325 MG per tablet Take 1 tablet by mouth every 6 (six) hours as needed. 01/24/13 06/22/16 Historical Provider HYDROmorphone (DILAUDID) 4 MG tablet Take 4 mg by mouth every 6 (six) hours as needed. Viv k thru pain 06/22/16 Historical Provider oxycodone (OXY-IR) 5 MG capsule Take 5 mg by mouth every 4 (four) hours as needed. 06/22/16 Historical Provider polyethylene glycol (GLYCOLAX) packet Take 17 g by mouth daily as needed. 06/22/16 Historic al Provider trazodone (DESYREL) 100 MG tablet Take 50 mg by mouth nightly. 01/17/13 06/22/16 Historical Pr ovider Allergies Allergen Reactions Morphine Anaphylaxis History Social History Marital Status: Single Spouse Name: N/A Number of Children: N/A Years of Education: N/A Occupational History Not on file. Social History Main Topics Smoking status: Never Smoker Smokeless tobacco: Never Used Alcohol Use: Yes Comment: occassionally Drug Use: Not on file Sexual Activity: Not on file Other Topics Concern Not on file Social History Narrative Family History Problem Relation Age of Onset Hypertension Mother Hypertension Father Cancer Other Diabetes type II Other Stroke Other ROS Review of Systems Constitutional: Negative for: fever, chills, fatigue, sweats or weight loss Eyes: Negative for: decreased vision or irritated eyes Nose: Negative for: nosebleed Throat: Negative for: mouth sores Cardiovascular/Respiratory: Negative for: chest pain, shortness of breath, cough Gastrointestinal: Negative for: abdominal pain, vomiting, diarrhea, black or bloody stools Positive for: Abdominal pain, gastroparesis Genitourinary: Negative for: dysuria, hematuria, urinary problems Musculoskeletal: Negative for: myalgias and arthralgias Skin: Negative for: laceration or lesion Neuro and psych: Negative for: fainting, head injury, seizure, trouble walking Endocrine/Heme/Lymph: Negative for: swollen lymph nodes, easy bruising Physical Exam BP 137/81 mmHg | Pulse 87 | Temp(Src) 97.9 F (36.6 C) (Temporal) | Resp 17 | Wt 69.3 kg (152 lb 12.5 oz) | SpO2 97% Pulse Oximetry interpretation: Normal General: Alert, in no apparent distress Eyes: Normal inspection, pupils equal and round, non-icteric ENT: Ears normal Nose normal Pharynx normal Neck: Normal inspection Supple No lymphadenopathy No meningismus Cardiovascular: Rate and rhythm normal No murmurs Respiratory: Breath sounds normal bilaterally Abdomen: Soft, moderate epigastric abdominal pain with palpation, non-distended No guarding or rebound Back: Normal inspection, negative for costovertebral angle tenderness Skin: Color normal Warm and dry No rash Neuro: No motor deficit No sensory deficit Normal gait ED Course Medical Decision Making and Emergency Department Course ED Department Course 1824: Examined and spoke to the patient relates a history of gastroparesis and epigastric a bdominal pain. I discussed a differential of yes or paresis, gastritis, PUD. I discussed a p antoinette for CBC, CMP, CRP, lipase, urine labs ,normal saline bolus, Phenergan, Reglan, Benadryl, GI cocktail and we will reevaluate. 1904: Urine negative 1909: Urine negative for urinary tract infection 1914: CBC normal 1929: CMP negative for an acute emergent process 1929: CRP and amylase and lipase normal 2014: Lactic acid level, phosphorus, magnesium level normal 2020: I have reevaluated the patient relates she is feeling much better at this time and de nies any symptoms. I discussed all first for admission as she is admitted multiple episodes of emergency department visits for gastroparesis however, she has declined at this time and is requesting to go home. I discussed with her the plans for discharge and outpatient follow -up with Dr. Corral gastrology. I discussed with her the treatment plan and what would consti tute a return to emergency department. Patient is afebrile and nontoxic-appearing at this ti me. Records Reviewed Nursing notes. Labs & Radiology Results Laboratory Evaluation Results Procedure Component Value Ref Range Date/Time Lactic acid [[id number]] Collected: 06/22/161850 Order Status: Completed Specimen Information: Blood Updated: 06/22/162010 LACTIC ACID 1.2 0.4 - 2.0 mmol/L Magnesium [[id number]] Collected: 06/22/161850 Order Status: Completed Specimen Information: Blood Updated: 06/22/162008 MAGNESIUM 2.1 1.7 - 2.4 mg/dL Phosphorus [[id number]] Collected: 06/22/161850 Order Status: Completed Specimen Information: Blood Updated: 06/22/162008 PHOSPHORUS 3.6 2.3 - 4.8 mg/dL Lipase [[id number]] Collected: 06/22/161850 Order Status: Completed Specimen Information: Blood Updated: 06/22/161926 LIPASE 103 73 - 393 U/L Comprehensive metabolic panel [[id number]] (Abnormal) Collected: 06/22/161850 Order Status: Completed Specimen Information: Blood Updated: 06/22/161926 SODIUM 139 135 - 145 mmol/L POTASSIUM 3.8 3.5 - 4.9 mmol/L CHLORIDE 104 99 - 109 mmol/L CO2 27 23 - 32 mmol/L ANION GAP AGAP 12 5 - 20 mmol/L GLUCOSE 80 65 - 99 mg/dL BUN 4 (L) 8 - 25 mg/dL CREATININE 0.83 0.50 - 1.00 mg/dL BUN/CREAT 5 CALCIUM 9.1 8.5 - 10.5 mg/dL TOTAL PROTEIN 7.4 6.3 - 8.2 g/dL Albumin 4.5 3.6 - 5.0 g/dL GLOBULIN 3.0 1.3 - 4.9 g/dL A/G 1.5 1.0 - 2.4 TBIL 0.6 0.1 - 1.5 mg/dL ALK PHOS 61 35 - 115 U/L AST 7 (L) 10 - 45 U/L ALT 20 10 - 65 U/L EGFR >60 >60 mL/min/1.73m2 Amylase [[id number]] Collected: 06/22/161850 Order Status: Completed Specimen Information: Blood Updated: 06/22/161926 AMYLASE 39 25 - 115 U/L C-reactive protein [[id number]] Collected: 06/22/161850 Order Status: Completed Specimen Information: Blood Updated: 06/22/161926 CRP <0.3 <0.5 mg/dL CBC with differential [[id number]] Collected: 06/22/161850 Order Status: Completed Specimen Information: Blood Updated: 06/22/161913 WBC 10.50 3.80 - 11.00 K/uL RBC 4.46 3.70 - 5.10 M/uL HGB 13.9 11.3 - 15.5 g/dL HCT 41.0 34.0 - 46.0 % MCV 91.9 80.0 - 100.0 fl MCH 31.1 27.0 - 34.0 pg MCHC 33.9 32.0 - 35.5 g/dL RDW SD 40.3 37 - 53 fl PLT 203 150 - 400 K/uL MPV 8.3 fl DIFF TYPE AUTOMATED NEUTROPHILS 65.86 % LYMPHOCYTES 25.52 % MONOCYTES 6.38 % EOSINOPHILS 1.61 % BASOPHILS 0.63 % NEUTROPHILS ABS 6.91 1.90 - 7.40 K/uL LYMPHOCYTES ABS 2.68 1.00 - 3.90 K/uL MONOCYTES ABS 0.67 0.00 - 0.80 K/uL EOSINOPHILS ABS 0.17 0.00 - 0.50 K/uL BASOPHILS ABS 0.07 0.00 - 0.10 K/uL Urinalysis (reflex to micro/reflex to culture) [[id number]] Collected: 06/22/161848 Order Status: Completed Specimen Information: Urine, Clean Catch Updated: 06/22/16 19 09 COLOR UA STRAW CLARITY CLEAR Specific [place], UA 1.005 1.002 - 1.030 LEUKOCYTE ESTERASE NEGATIVE NEGATIVE NITRITE NEGATIVE NEGATIVE UROBILINOGEN NORMAL <1.1 mg/dL PROTEIN NEGATIVE NEGATIVE mg/dL PH,URINE 7.0 5.0 - 8.0 BLOOD NEGATIVE NEGATIVE KETONES NEGATIVE NEGATIVE mg/dL BILIRUBIN NEGATIVE NEGATIVE GLUCOSE NEGATIVE NEGATIVE mg/dL Urine Test [[id number]] Collected: 06/22/161848 Order Status: Completed Specimen Information: Urine from Urine, Clean Catch Updated: 06/22/16 1904 Preg Test, Ur NEGATIVE NEGATIVE Radiology and EKG Evaluation Imaging Results None Diagnosis & Disposition ED Diagnosis Final diagnosis Nondiabetic gastroparesis Disposition: ED Disposition Discharge Condition at discharge: Stable Follow-up Information Follow up With Details Comments Contact Info Ellis Bess MD Schedule an appointment as soon as possible for a visit [address] [place] [phone] Allegra Chaudhary PA-C In 1 week [address] [place] [phone] [facility] Emergency Department If symptoms worsen [address] [place] [address] [phone] Discharge Medications: Discharge Medication List as of 06/22/2016 8:27 PM START taking these medications Details diphenhydrAMINE (BENADRYL) 25 mg capsule Take 2 capsules by mouth every 6 (six) hours., Sta rting 06/22/2016, Until Tue07/02/16, Print ketorolac (TORADOL) 15 MG/ML injection Inject 1 mL into the vein once as needed for Pain., Starting 06/22/2016, Until Discontinued, Print Lidocaine HCl (LIDOCAINE VISCOUS) 2 % solution Take 5 mLs by mouth as needed for Pain., Sta rting 06/22/2016, Until Tue07/02/16, Print John Leonard PA-C 06/22/162104 onversio govind Chi, Provider Unknown - 06/22/2016 5:46 PM PDTFormatting of this note might be di fferent from the original. ED Notes by Sd Comer RN at 06/22/161745 Author: Sd Comer RN Service: (none) Author Type: Registered Nurse Filed: 06/22/161745 Date of Service: 06/22/161745 Status: Signed Professor Of Business Administration: Sd Comer RN (Registered Nurse) Patient given instructions on how to obtain a clean catch urine specimen. Patient verbaliz ed understanding. Specimen cup and towelettes provided. Patient to bathroom to attempt col lection. Sd Comer RN 06/22/161745 docume nted in this encounter Plan of [...] documented in this encounter Results External Lab: [facility] (06/22/2016 6:51 PM PDT) + + + + + + | Component | Value | Ref Range | Performed | Pathologist | | | | | At | Signature | + + + + + + | WBC | 10.50Comment: Testing | 3.80 - 11.00 | EXTERNAL | | | | performed at [facility] | K/uL | LAB | | | | [address];[place] | | | | | | [address] | | | | + + + + + + | Non- | 4.46Comment: Testing | 3.70 - 5.10 | EXTERNAL | | | Red Blood | performed at [facility];[address] | M/uL | LAB | | | Cells | [address];[place] | | | | | Counted | [address] | | | | + + + + + + | Hemoglobin | 13.9Comment: Testing | 11.3 - 15.5 | EXTERNAL | | | | performed at [facility];[address] | g/dL | LAB | | | | [address];[place] | | | | | | [address] | | | | + + + + + + | Hematocrit, | 41.0Comment: Testing | 34.0 - 46.0 % | EXTERNAL | | | POC | performed at [facility];[address] | | LAB | | | | [address];[place] | | | | | | [address] | | | | + + + + + + | MCV | 91.9Comment: Testing | 80.0 - 100.0 fl | EXTERNAL | | | | performed at [facility];[address] | | LAB | | | | [address];[place] | | | | | | [address] | | | | + + + + + + | MCH | 31.1Comment: Testing | 27.0 - 34.0 pg | EXTERNAL | | | | performed at [facility];[address] | | LAB | | | | [address];[place] | | | | | | [address] | | | | + + + + + + | MCHC | 33.9Comment: Testing | 32.0 - 35.5 | EXTERNAL | | | | performed at [facility];[address] | g/dL | LAB | | | | [address];[place] | | | | | | [address] | | | | + + + + + + | RDW-CV | 40.3Comment: Testing | 37 - 53 fl | EXTERNAL | | | | performed at [facility];[address] | | LAB | | | | [address];[place] | | | | | | [address] | | | | + + + + + + | Platelet | 203Comment: Testing | 150 - 400 K/uL | EXTERNAL | | | Count | performed at [facility];[address] | | LAB | | | Plasma | [address];[place] | | | | | | [address] | | | | + + + + + + | MPV | 8.3Comment: Testing | fl | EXTERNAL | | | | performed at [facility];[address] | | LAB | | | | [address];[place] | | | | | | [address] | | | | + + + + + + | Differentia | AUTOMATEDComment: | | EXTERNAL | | | l Type | Testing performed at | | LAB | | | | [facility];[address];[place] [address] | | | | + + + + + + | % Segmented | 65.86Comment: Testing | % | EXTERNAL | | | | performed at [facility];[address] | | LAB | | | Neutrophils | [address];[place] | | | | | | [address] | | | | + + + + + + | % | 25.52Comment: Testing | % | EXTERNAL | | | Lymphocytes | performed at [facility];[address] | | LAB | | | | [address];[place] | | | | | | [address] | | | | + + + + + + | % Monocytes | 6.38Comment: Testing | % | EXTERNAL | | | | performed at [facility];[address] | | LAB | | | | [address];[place] | | | | | | [address] | | | | + + + + + + | % | 1.61Comment: Testing | % | EXTERNAL | | | Eosinophils | performed at [facility];[address] | | LAB | | | | [address];[place] | | | | | | [address] | | | | + + + + + + | % Basophils | 0.63Comment: Testing | % | EXTERNAL | | | | performed at [facility];[address] | | LAB | | | | [address];[place] | | | | | | [address] | | | | + + + + + + | Absolute | 6.91Comment: Testing | 1.90 - 7.40 | EXTERNAL | | | Segmented | performed at [facility];[address] | K/uL | LAB | | | Neutrophils | [address];[place] | | | | | | [address] | | | | + + + + + + | Absolute | 2.68Comment: Testing | 1.00 - 3.90 | EXTERNAL | | | Lymphocytes | performed at [facility];[address] | K/uL | LAB | | | | [address];[place] | | | | | | [address] | | | | + + + + + + | Absolute | 0.67Comment: Testing | 0.00 - 0.80 | EXTERNAL | | | Monocytes | performed at [facility];[address] | K/uL | LAB | | | | [address];[place] | | | | | | [address] | | | | + + + + + + | Absolute | 0.17Comment: Testing | 0.00 - 0.50 | EXTERNAL | | | Eosinophils | performed at [facility];[address] | K/uL | LAB | | | | [address];[place] | | | | | | [address] | | | | + + + + + + | Absolute | 0.07Comment: Testing | 0.00 - 0.10 | EXTERNAL | | | Basophils | performed at [facility];[address] | K/uL | LAB | | | | [address];[place] | | | | | | [address] | | | | + + + [...] EXTERNAL | | | | performed at [facility];[address] | | LAB | | | | [address];[place] | | | | | | [address] | | | | + + + [...] EXTERNAL | | | | performed at [facility];[address] | | LAB | | | | [address];[place] | | | | | | [address] | | | | + + + [...] LAB | | | | performed at [facility];[address] | | | | | | [address];[place], [place] | | | | | | [address] | | | | + + + [...] EXTERNAL | | | | performed at [facility];[address] | | LAB | | | | [address];[place] | | | | | | [address] | | | | + + + [...] EXTERNAL | | | | performed at [facility];[address] | mmol/L | LAB | | | | [address];[place], [place] | | | | | | [address] | | | | + + + [...] EXTERNAL | | | | performed at [facility];[address] | | LAB | | | | [address];[place], [place] | | | | | | [address] | | | | + + + [...] EXTERNAL | | | | performed at [facility];[address] | mmol/L | LAB | | | | [address];[place] | | | | | | [address] | | | | + + + + + + | K | 3.8Comment: Testing | 3.5 - 4.9 | EXTERNAL | | | | performed at [facility];[address] | mmol/L | LAB | | | | [address];[place] | | | | | | [address] | | | | + + + + + + | Cl | 104Comment: Testing | 99 - 109 mmol/L | EXTERNAL | | | | performed at [facility];[address] | | LAB | | | | [address];[place] | | | | | | [address] | | | | + + + + + + | CO2 | 27Comment: Testing | 23 - 32 mmol/L | EXTERNAL | | | | performed at [facility];[address] | | LAB | | | | [address];[place] | | | | | | [address] | | | | + + + + + + | Anion Gap | 12Comment: Testing | 5 - 20 mmol/L | EXTERNAL | | | | performed at [facility];[address] | | LAB | | | | [address];[place] | | | | | | [address] | | | | + + + + + + | Glucose, | 80Comment: Testing | 65 - 99 mg/dL | EXTERNAL | | | Fasting | performed at [facility];[address] | | LAB | | | | [address];[place] | | | | | | [address] | | | | + + + + + + | BUN | 4 (L)Comment: Testing | 8 - 25 mg/dL | EXTERNAL | | | | performed at [facility];[address] | | LAB | | | | [address];[place] | | | | | | [address] | | | | + + + + + + | Creatinine | 0.83Comment: Testing | 0.50 - 1.00 | EXTERNAL | | | | performed at [facility];[address] | mg/dL | LAB | | | | [address];[place] | | | | | | [address] | | | | + + + + + + | BUN/Creatin | 5Comment: Testing | | EXTERNAL | | | ine Ratio | performed at [facility];[address] | | LAB | | | | [address];[place] | | | | | | [address] | | | | + + + + + + | Calcium | 9.1Comment: Testing | 8.5 - 10.5 | EXTERNAL | | | | performed at [facility];[address] | mg/dL | LAB | | | | [address];[place] | | | | | | [address] | | | | + + + + + + | Protein, | 7.4Comment: Testing | 6.3 - 8.2 g/dL | EXTERNAL | | | Total | performed at [facility];[address] | | LAB | | | | [address];[place] | | | | | | [address] | | | | + + + + + + | Albumin | 4.5Comment: Testing | 3.6 - 5.0 g/dL | EXTERNAL | | | | performed at [facility];[address] | | LAB | | | | [address];[place] | | | | | | [address] | | | | + + + + + + | Globulin | 3.0Comment: Testing | 1.3 - 4.9 g/dL | EXTERNAL | | | | performed at [facility];[address] | | LAB | | | | [address];[place] | | | | | | [address] | | | | + + + + + + | A/G Ratio | 1.5Comment: Testing | 1.0 - 2.4 | EXTERNAL | | | | performed at [facility];[address] | | LAB | | | | [address];[place] | | | | | | [address] | | | | + + + + + + | Bilirubin | 0.6Comment: Testing | 0.1 - 1.5 mg/dL | EXTERNAL | | | Total | performed at [facility];[address] | | LAB | | | | [address];[place] | | | | | | [address] | | | | + + + + + + | ALP, | 61Comment: Testing | 35 - 115 U/L | EXTERNAL | | | External | performed at [facility];[address] | | LAB | | | | [address];[place] | | | | | | [address] | | | | + + + + + + | AST | 7 (L)Comment: Testing | 10 - 45 U/L | EXTERNAL | | | | performed at [facility];[address] | | LAB | | | | [address];[place] | | | | | | [address] | | | | + + + + + + | ALT | 20Comment: Testing | 10 - 65 U/L | EXTERNAL | | | | performed at [facility];[address] | | LAB | | | | [address];[place] | | | | | | [address] | | | | + + + [...] | | | | | | at [facility];[address];[place] [address] | | | | + + + [...] EXTERNAL | | | | performed at [facility];[address] | | LAB | | | | [address];[place] | | | | | | [address] | | | | + + + + + + | Clarity, | CLEARComment: Testing | | EXTERNAL | | | Urine | performed at [facility];[address] | | LAB | | | | [address];[place] | | | | | | [address] | | | | + + + + + + | Specific | 1.005Comment: Testing | 1.002 - 1.030 | EXTERNAL | | | [place], | performed at [facility];[address] | | LAB | | | Urine | [address];[place] | | | | | | [address] | | | | + + + + + + | Leukocyte | NEGATIVEComment: Testing | | EXTERNAL | | | Esterase, | performed at [facility];[address] | | LAB | | | Urine | [address];[place] | | | | | | [address] | | | | + + + + + + | Nitrite, | NEGATIVEComment: Testing | | EXTERNAL | | | Urine | performed at [facility];[address] | | LAB | | | | [address];[place] | | | | | | [address] | | | | + + + + + + | Urobilinoge | NORMALComment: Testing | mg/dL | EXTERNAL | | | n, Urine | performed at [facility];[address] | | LAB | | | | [address];[place] | | | | | | [address] | | | | + + + + + + | Protein, | NEGATIVEComment: Testing | mg/dL | EXTERNAL | | | Urine | performed at [facility];[address] | | LAB | | | | [address];[place] | | | | | | [address] | | | | + + + + + + | pH, Urine | 7.0Comment: Testing | 5.0 - 8.0 | EXTERNAL | | | | performed at [facility];[address] | | LAB | | | | [address];[place] | | | | | | [address] | | | | + + + + + + | Blood, | NEGATIVEComment: Testing | | EXTERNAL | | | Urine | performed at [facility];[address] | | LAB | | | | [address];[place] | | | | | | [address] | | | | + + + + + + | Ketones | NEGATIVEComment: Testing | mg/dL | EXTERNAL | | | | performed at [facility];[address] | | LAB | | | | [address];[place] | | | | | | [address] | | | | + + + + + + | Bilirubin, | NEGATIVEComment: Testing | | EXTERNAL | | | Urine | performed at [facility];888 | | LAB | | | | [address];[place] | | | | | | [address] | | | | + + + + + + | Glucose, | NEGATIVEComment: Testing | mg/dL | EXTERNAL | | | Urine | performed at [facility];[address] | | LAB | | | | [address];[place], [place] | | | | | | [address] | | | | + + + [...] | | | Ur | performed at [facility];[address] | | LAB | | | | [address];[place], [place] | | | | | | [address] | | | | + + + [...]
--- OUTSIDE RECORDS SUMMARY | ~2020-07-04 | XMS | Encounter Summary ---
Demographics + + + | Address | [address] | | | [place] [address] | + + + | Home Phone [...] Team Providers + +------+ + | Care Plastic Press Operator Name | Role | Phone | [...] JAYDEN Delvalle | | | | | [facility] | [address] | | | | | [address] | [place], [place] | | | | | [place] [facility] | [address] | | | | | and Healing, | [phone] | | | | | | | | | | | Floor [place], [place] | | | | | | [address] | | | | | | [phone] | | | +--------+ + + + [...]
--- OUTSIDE RECORDS SUMMARY | ~2020-07-04 | XMS | Encounter Summary ---
Demographics + + + | Address | [address] | | | [place] [address] | + + + | Home Phone [...] Team Providers + +------+ + | Care Adult Health Clinical Nurse Specialist Name | Role | Phone | [...] CRPS | Janak Martinez MD | [facility] [address] | | | | Management | (complex | [address] | | | | | regional | [address] | Center for | | | | | pain | [facility] | Health and | | | | | syndrome), | [id number] | Healing, | | | | | lower limb | [place], [place] | Building | | | | | Gait | [address] | 1,15th Floor | | | | | disturbance | Phone: | [place], [place] | | | | | Muscle pain | [phone] | [address] | | | | | Procedures | Fax: | Phone: | | | | | CONSULT TO | [phone] | [phone] | | | | | PAIN CENTER | | Fax: | | | | | | | [phone] | +--------+--------+ + + + + Encounter Details +--------+---------+ + + + | Date | Type | Department | Care Team | Description | +--------+---------+ + + + | 03/20/ | Office | Pain Center at [facility] | Shelia Feldman, PhD | Unspecified | | 2011 | Visit | [address] | | adjustment reaction | | | | Center for [facility] | | (Primary Dx) | | | | and Healing, | | | | | | Building | | | | | | Floor [place], [place] | | | | | | [address] | | | | | | [phone] | | | +--------+---------+ + + + [...] [facility] Name: Tracie Farah MR#: [id number] Date of : 1990 Date: March 20, 2012 Attending Psychologist: SHELIA FELDMAN, PHD CPT: 50517 Duration: 60min Psych: 309.0 Pain: 355.71 Tracie arrived on time for today's appointment, casually dressed and neatly groomed. Affect was appropriate, mood normothymic. She drove herself today and used crutches. She stated t hat she was doing "better", mainly because she has returned to work at [employer]. She is wo rking about 2 hour shifts; her pain is flared during work but she feels good because she is engaging in life and also is earning money. She reported that she has been cutting down on her pain medication because she wants to improve cognition (currently taking 1-2 daily at [facility] for sleep). She notes that she [...] discretion, not currently planned. SHELIA FELDMAN, PHD Feather Edger Licensed Clinical Psychologist [facility] Department of Anesthesiology & Perioperative Medicine [facility] [address] [place], [place] [id number] Historical Information: Introduction: Tracie Farah is a 21-year-old woman with >5 year hx of CRPS, R LE.S ocial & Psychiatric History: Tracie Farah lives in [place] in a shared apartment space. She has struggled wi th CRPS for at least 5 years; original injury to her foot was in 2001. In summer 2010 she h ad inpt pain tx at [facility] with limited senior care benefit. Recent flare; she arrived using crutches [...] learned some pain management techniques at [facility], mainly DB and PMR, which she [...] Travel is a barrier; she lives in [place] DSM-IV Diagnoses/Impressions: [place] I: 1. 309.9 Unspecified Adjustment Reaction 2. 780.50 Sleep Disturbance [place]amo II: Deferred. [place]amo III: Patient Active Problem List Diagnoses CRPS (complex regional pain syndrome), lower limb Gait disturbance Muscle pain Adjustment reaction [place] IV: CRPS pain, pain related debility;difficulty attending class, working; family stres s; stalker ex-bf [place] V: Global Assessment of Functioning = 75 [...] me should questions arise. SHELIA FELDMAN, PHD Feather Edger Licensed Clinical Psychologist [facility] Department of Anesthesiology & Perioperative Medicine [facility] [address] [place] [address] documented in this enc ounter Plan of Treatment Not on filedocumented as of this encounter Visit Diagnoses + + | Diagnosis | + + | Unspecified adjustment reaction - Primary | + + documented in this encounter
--- OUTSIDE RECORDS SUMMARY | ~2020-07-04 | XMS | Encounter Summary ---
Demographics + + + | Address | [address] | | | [place] [address] | + + + | Home Phone [...] Team Providers + +------+ + | Care Web Assistant Name | Role | Phone | + +------+ + | Justo Vazquez MD | PCP | | + +------+ + Encounter Details +--------+ + + + + | Date | Type | Department | Care Team | Description | +--------+ + + + + | 12/05/ | Procedure | [facility] | | | | 2019 | Pass | [facility] | | | | | | and Healing Surgery | | | | | | Center Admitting | | | | | | Desk Located on the | | | | | | 4th floor [address] | | | | | | [address], | | | | | | [place] [address] | | | +--------+ + + + [...]
--- OUTSIDE RECORDS SUMMARY | ~2020-07-04 | XMS | Encounter Summary ---
Demographics + + + | Address | [address] | | | [place] [address] | + + + | Home Phone [...] Team Providers + +------+ + | Care Plywood Matcher Name | Role | Phone | + [...] | 2017 | | Center at [facility] [address] | | Review | | | | [facility] | | | | | | for Health and | | | | | | [facility] 2 | | | | | | [place], [place] | | | | | | [address] | | | | | | [phone] | | | +--------+ + + + [...]
--- OUTSIDE RECORDS SUMMARY | ~2020-07-04 | XMS | Encounter Summary ---
Demographics + + + | Address | [address] | | | [place] [address] | + + + | Home Phone [...] Team Providers + +------+ + | Care Hamper Maker Name | Role | Phone | + +------+ + | Justo Vazquez MD | PCP | | + +------+ + Encounter Details +--------+ + + + + | Date | Type | Department | Care Team | Description | +--------+ + + + + | 04/23/ | Anesthesia | [facility] at [facility] | Aleta Rebollar MD [address] | | | 2019 | Event | [address] | [place] | | | | | [place] [facility] | [place], [place] | | | | | and Healing, | [address] | | | | | | [phone] | | | | | Floor [place], [place] | | | | | | [address] | | | | | | [phone] | | | +--------+ + + + [...]
--- OUTSIDE RECORDS SUMMARY | ~2020-07-04 | XMS | Clinical Summary ---
Demographics + + + | Address | [address] | | | [place] [address] | + + + | Home Phone [...] Author | [facility] | + + + | Organization | [facility] | + + + | Address | Unknown | + + + | Phone | Unavailable | + + + Support + + +---------+ + | Name | Relationship | Address | Phone | + + +---------+ + | Patricia Colin | ECON | Unknown | | + + +---------+ + Care Team Providers + +------+ + | Care Steel Pan Form Placing Supervisor Name | Role | Phone | + +------+ + | Justo Vazquez MD | PCP | | + +------+ + Source Comments KEVIN is fully live on both [facility] Ambulatory and [facility] InPatient.[facility] Allergies + + + + + [...] Noted Date | + + + | [facility] CLINICAL PROTOCOL PATIENT (PETER) - Implanted Spinal Cord | 12/14/2018 | | Stimulator | | + + + + + | Overview: Patient has an implanted Ropatec spinal | | cord stimulator. Model#: [id number]. Contact [phone] for | | technical assistance.Contraindications:Sources of strong [...] | Right: | BARD | | | [id number] | | Port-10/05/2016Implanted: | | Chest | | | | 0 / | | 10/05/2016 by Obdulio Simpson, | | | | | | /VIKY | | (Quantity not on file) | | | | | | 204 | + +------+--------+ +--------+--------+--------+ + + | Description:Not Power | | Injectable, Progress record | | faxed from [facility] | | Hospital in [place], [place], | | [facility] RN | + + + +---+---+ +---+--------+--------+ | Slimtip DrgImplanted: Qty: 1 | | | [facility] | | 01/06/ | [id number] | | on 12/05/2018 by Daniel, | | | MEDICAL [place] | | 2020 | 0-50A | | Alex Alba MD,PhD at [facility] | | | | | | /[id number] | | INPATIENT REV LOC | | | | | | 371 / | + +---+---+ +---+--------+--------+ + + | Description:Level 4 | + + + +---+---+ +---+---+--------+ | Slimtip DrgImplanted: Qty: 1 | | | [facility] | | | [id number] | | on 12/05/2018 by Daniel, | | | MEDICAL SC | | | 0-50A | | Alex Alba MD,PhD at [facility] | | | | | | /[id number] | | INPATIENT REV LOC | | | | | | 374 / | + +---+---+ +---+---+--------+ + + | Description:Level5 | + + + +---+--------+ +---+--------+--------+ | Implantable Pulse | | Right: | [facility] | | 04/10/ | [id number] | | GeneratorImplanted: Qty: 1 on | | Other | MEDICAL SC | | 2020 | /[id number] | | 12/05/2018 by Daniel, | | | | | | 2.1 / | | Alex Alba MD,PhD at [facility] | | | | | | [...] | | | | | | | [address] | | + +--------+ +--------+ + +--------+ | DI[employer]OND DIE POL[employer]ER MEDICAID | DIAMOND DIE POLISHER | xxxxxxxx | 11/14/19 | | | [...] | 1990 | [phone] | [place] [address] | | | evita | | | [...]
--- OUTSIDE RECORDS SUMMARY | ~2020-07-04 | XMS | Encounter Summary ---
Demographics + + + | Address | [address] | | | [place] [address] | + + + | Home Phone [...] Team Providers + +------+ + | Care Recycling Specialist Name | Role | Phone | [...]
--- OUTSIDE RECORDS SUMMARY | ~2020-07-04 | XMS | Encounter Summary ---
Demographics + + + | Address | [address] | | | [place] [address] | + + + | Home Phone [...] Providers + +------+ + | Care Product Responsibility Liaison Name | Role | Phone | + [...] | | pain | [address] | [place], [place] | | | | | syndrome | [place] | [address] | | | | | type 1 of | [address] | Phone: | | | | | left lower | Phone: | [phone] | | | | | extremity | [phone] | Fax: | | | | | Midline low | Fax: | [phone] | | | | | back pain | [phone] | | | | | | without [...] Ave | | | | | | [place], [place] | [facility] [place] | | | | | | [address] | [address] | | | | | | Phone: | Phone: | | | | | | [phone] | [phone] | | | | | | Fax: | Fax: | | | | | | [phone] | [phone] | +--------+---------+ + + + + Encounter Details +--------+---------+ + + + | Date | Type | Department | Care Team | Description | +--------+---------+ + + + | 07/04/ | Office | [facility] Comprehensive | Lane Reyes, | Complex regional | | 2019 | Visit | Pain Center at | [place] [address] | pain syndrome type 1 | | | | [place] | [place], [place] | of left lower | | | | [address] | [address] | extremity (Primary | | | | [facility] | [phone] | Dx); Midline low | | | | and Healing, | | back pain without | | | | Building | | sciatica, | | | | Floor [place], [place] | | unspecified | | | | [address] | | chronicity; | | | | [phone] | | Sacroiliac pain; | | | [...] and help in coping with the pain. 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 Has been working at [employer] can' t work on crEventMamaches. Has roommates. Allergies Allergen Reactions Morphine Anaphylaxis [...] SOLUTION Take as directed by [facility] Digestive [facility]- 2 gallon bowel prep POLYETHYLENE GLYCOL 3350 17 GRAM/DOSE ORAL POWDER Take 17 g by mouth once daily. PROMETHAZINE 12.5 MG TABLET Take 1 tablet by mouth four times daily as needed for nausea/vo miting. SUCRALFATE 1 GRAM TABLET Take 1 g by mouth four times daily. Radiology/Diagnostic Tests: X-RAY SPINE CERV 4 VIEWS Order: [id number] Performed: 06/12/2018 11:40 Status: Final result Visible [...] that the treatment performed by the chiropractic logistics intern, Niesha Reveles, was directly observed by myself the primary chiropractor Lane Reyes [place] Visit Diagnoses: ICD-10-CM 1. Complex regional pain syndrome type 1 of left lower extremity G90.522 CONSULT TO PAIN [facility] 2. Midline low back pain without sciatica, unspecified chronicity M54.5 CONSULT TO PAIN [facility] 3. Sacroiliac pain M53.3 CONSULT TO PAIN MANAGEMENT ID CHIROPRAC MANIP,SPINAL,1-2 REGIONS 4. Sacral dysfunction M53.3 ID CHIROPRAC MANIP,SPINAL,1-2 REGIONS 5. Somatic dysfunction of pelvis region M99.05 ID CHIROPRAC MANIP,SPINAL,1-2 REGIONS 6. Somatic dysfunction of sacral region M99.04 ID CHIROPRAC MANIP,SPINAL,1-2 REGIONS Impression: Tracie Farah is [...] verified the above note written by Chiropractic logistics intern of our visit wit h this patient as recorded by Lane Reyes [place] [facility] CENTER AT [address] Mail Code: Ch15p [place] [address] documented in this e ncounter Plan of Treatment Not on filedocumented as of this encounter Procedures + +--------+ + + + | Procedure Name | Priori | Date/Time | Associated Diagnosis | Comments | | | ty | | | | + +--------+ + + + | ID CHIROPRAC | Routin | 07/10/2019 | Sacroiliac [...]
--- OUTSIDE RECORDS SUMMARY | ~2020-07-04 | XMS | Encounter Summary ---
Demographics + + + | Address | [address] | | | [place] [address] | + + + | Home Phone [...] Providers + +------+ + | Care Manager Customs Name | Role | Phone | + +------+ + | Justo Vazquez MD | PCP | | + +------+ + Encounter Details +--------+ + + + + | Date | Type | Department | Care Team | Description | +--------+ + + + + | 01/31/ | Documentati | Vascular Access at | [place], | | | 2017 | on | [facility] [address] | Maru RN [address] | | | | | [address] | [address] | | | | | [facility] | [place], [place] | | | | | [place], [place] | [address] | | | | | [address] | | | | | | [phone] | | | +--------+ + + + [...]
--- OUTSIDE RECORDS SUMMARY | ~2020-07-04 | XMS | Encounter Summary ---
Demographics + + + | Address | [address] | | | [place] [address] | + + + | Home Phone [...] Team Providers + +------+ + | Care Associate Team Physician Name | Role | Phone | + +------+ + | Justo Vazquez MD | PCP | | + +------+ + Encounter Details +--------+ + + + + | Date | Type | Department | Care Team | Description | +--------+ + + + + | 01/02/ | Telephone | [facility] | Ilene Bright, | | | 2019 | | Pain Center at | BARREL CHARRER [address] | | | | | [facility] | [place], [place] | | | | | [address] | [address] | | | | | [place] for [facility] | [phone] | | | | | and Healing, | | | | | | | | | | | | Floor [place], [place] | | | | | | [address] | | | | | | [phone] | | | +--------+ + + + [...]
--- OUTSIDE RECORDS SUMMARY | ~2020-07-04 | XMS | Encounter Summary ---
Demographics + + + | Address | [address] | | | [place] [address] | + + + | Home Phone [...] Team Providers + +------+ + | Care Medart Operator Name | Role | Phone | [...] on | Pain Center at | [address] [facility] | evaluation (No | | | | [facility] | [facility] [id number] | evidence of drug | | | | [address] | [place], [place] | abuse) | | | | [facility] | [address] | | | | | and Healing, | [phone] | | | | | [facility] | | | | | | Floor [place], [place] | | | | | | [address] | | | | | | [phone] | | | +--------+ + + + [...]
--- OUTSIDE RECORDS SUMMARY | ~2020-07-04 | XMS | Encounter Summary ---
Demographics + + + | Address | [address] | | | [place] [address] | + + + | Home Phone [...] Team Providers + +------+ + | Care Detention Deputy Name | Role | Phone | + [...] + + | 12/26/ | Refill | [facility] Comprehensive | Alex Sanchez, | Refill Request | | 2019 | | Pain Center at | ,PhD [address] [facility] | | | | | [facility] | [address] | | | | | [address] | [place], [place] | | | | | [facility] | [address] | | | | | and Martina, | [phone] | | | | | [facility] | | | | | | Floor [place], [place] | | | | | | [address] | | | | | | [phone] | | | +--------+--------+ + + + [...]
--- OUTSIDE RECORDS SUMMARY | ~2020-07-04 | XMS | Encounter Summary ---
Demographics + + + | Address | [address] | | | [place] [address] | + + + | Home Phone [...] Providers + +------+ + | Care Clinical Services Assistant Name | Role | Phone | [...] + + | 09/30/ | Telephone | [facility] Ilene | Ilene Bright, | Phone communication | | 2017 | | Pain Center at | [employer] [address] | | | | | [facility] | [place], [place] | | | | | [address] | [address] | | | | | [facility] | [phone] | | | | | and Healing, | | | | | | Building | | | | | | Floor [facility] [place] | | | | | | [address] | | | | | | [phone] | | | +--------+ + + + [...]
--- OUTSIDE RECORDS SUMMARY | ~2020-07-04 | XMS | Encounter Summary ---
Demographics + + + | Address | [address] | | | [place] [address] | + + + | Home Phone [...] Team Providers + +------+ + | Care Logistician Name | Role | Phone | + [...] | CRPS | Dale Martinez MD | [facility] [address] | | | | | (complex | [address] | [address] | | | | | regional | [address] | [address] | | | | | pain | Mailstop | Acosta Vanegas, | | | | | syndrome), | [id number] | Basement | | | | | lower limb | [place], [place] | [place], [place] | | | | | Procedures | [address] | [address] | | | | | NM BONE &/OR | Phone: | Phone: | | | | | JOINT | [phone] | [phone] | | | | | IMAGING 3 | Fax: | Fax: | | | | | PHASE | [phone] | [phone] | +--------+--------+ + + + + Consult [...] | | | regional | [place] [address] | | | | | pain | FAMILY | Mailstop | | | | | syndrome), | MEDICINE P | [id number] | | | | | lower limb | [address] | [place], [place] | | | | | Gait | [place], | [address] | | | | | disturbance | [place] [address] | Phone: | | | | | Muscle pain | Phone: | [phone] | | | | | Procedures | [phone] | Fax: | | | | | REQUEST TO | Fax: | [phone] | | | | | SURGERY | [phone] | | | | | | CLOUD AUTOMATION TESTER | | | +--------+--------+ + + + + Consultation (Routine) +--------+--------+ + + + + | Status | Reason | Specialty | Diagnoses / | Referred By | Referred To | | | | | Procedures | Contact | Contact | +--------+--------+ + + + + | Closed | | Psychology / | Diagnoses | Beulah, | Digital Advisor Psych | | | | Pain | CRPS | Dale Martinez MD | [facility] [address] | | | | Management | (complex | [address] | | | | | regional | [address] | Center for | | | | | pain | Mailstop | Health and | | | | | syndrome), | [id number] | Healing, | | | | | lower limb | [place], [place] | Building | | | | | Gait | [address] | 1[address] Floor | | | | | disturbance | Phone: | [place], [place] | | | | | Muscle pain | [phone] | [address] | | | | | Procedures | Fax: | Phone: | | | | | CONSULT TO | [phone] | [phone] | | | | | PAIN CENTER | | Fax: | | | | | | | [phone] | +--------+--------+ + + + + Physical Therapy (Routine) +--------+--------+ + + + + | Status | Reason | Specialty | Diagnoses / | Referred By | Referred To | | | | | Procedures | Contact | Contact | +--------+--------+ + + + + | Closed | | Physical | Diagnoses | Beulah, | Edu Pt Digital Advisor | | | | Therapy | CRPS | Dale Martinez MD | [facility] [address] | | | | | (complex | [address] | | | | | regional | [address] | Mailcode: | | | | | pain | Mailstop | [facility] | | | | | syndrome), | [id number] | for Health | | | | | lower limb | [place], [place] | and Healing, | | | | | Gait | [address] | [facility] 1 | | | | | disturbance | Phone: | [place], [place] | | | | | Muscle pain | [phone] | [address] | | | | | Procedures | Fax: | Phone: | | | | | PHYSICAL | [phone] | [phone] | | | | | THERAPY | [...] | | | 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 | FAMILY | Mailstop | | | | | of lower | MEDICINE P | [id number] | | | | | limb | [address] | [place], [place] | | | | | | [place], | [address] | | | | | | [place] [address] | Phone: | | | | | | Phone: | [phone] | | | | | | [phone] | Fax: | | | | | | Fax: | [phone] | | | | | | [phone] | | +--------+--------+ + + + + Encounter Details +--------+---------+ + + + | Date | Type | Department | Care Team | Description | +--------+---------+ + + + | 02/13/ | Office | [place] [facility] | Dale Cantu, | CRPS (complex | | 2011 | Visit | Pain Center at | MD [address] | regional pain | | | | [facility] | [facility] [id number] | syndrome), lower | | | | [address] | [place], [place] | limb; Gait | | | | [facility] | [address] | disturbance; Muscle | | | | and Healing, | [phone] | pain; Adjustment | | | | | | reaction | | | | Floor [place], [place] | | | | | | [address] | | | | | | [phone] | | | +--------+---------+ + + + [...] Diagnostic evaluation: Records from CRPS program at [facility]. 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 2. [...] employed by the psychologists here at the [facility]. 2.2 Physical therapy can reduce pain and improve functional status. Suggest Guillermo Sanon . 3. Medication suggestions: 3.1 Continue titrating up duloxetine. 3.2 As for any patient being managed with chronic opioids, we do recommend that the patien t have a signed [facility] Material Risk Notice, agree to whatever [...] sintia sure this is scheduled with the Senior Reliability Engineer. Please bring a intermodal owner operator truck driver with you. We may give you medications that make you drowsy or otherw ise unsafe to drive. If you do not have a intermodal owner operator truck driver, we will not be able to do your procedure. DO NOT EAT ANYTHING AFTER MIDNIGHT If your appointment is after 1 PM , you may have a very light, low fat breakfast, such as h half-way a piece of dry toast or a [...] PLEASE CONTACT THE COMPREHENSIVE PAIN CENTER AT [phone] ([phone]) FOR QUESTIONS OR IF YOU NEED TO CANCEL YOUR APPOINTMENT. [facility] Comprehensive Pain Center documented in this [...] pain management consultation by BJORN Mi [facility] [facility] [address] [place] [address] Reason for visit Chief Complaint Patient presents with Pain in left leg Ankle pain left History of Present Illness: Tracie Farah is a 21 year old female with pain locate d in left lower extremity. She has been diagnosed with CRPS. She is referred to [facility] for consultation regarding this ongoing pain problem with the following spec [facility], an acute care hospital issues to be addressed: Other options for [...] by several orthopedic surgeons, Dr. Charles in [place], physical therapy, Occupational Therapy. Diagnostic and radiologic [...] no pain relief. Admitted to the inpatient [facility] program for 1 month in [...] entin, pregabalin, topiramate, tramadol, multiple opioids. Current Dalton about 6-8/day. St arting duloxetine, at 30 mg/day. She feels that the most effective medication treatments ar e or have been opioids. As a result of her pain, Ms. Farah notes multiple changes in her life, including: "I don 't have a life, can't work, can't go to school." Poor mood, sleep, activity. Using crutche s recently because of pain flare. 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 Goes to [employer] college with a light load. Has been working at [employer], can' t work on [employer]. Has roommates. Current Medication List 02/14/12 9:50 [...] As part of today's visit the [facility] new patient questionnaire was [...] rambo, the pediatric inpatient pain program at [facility], and two attempted lumbar sympathetic blocks. [...] CRPS patients (Loretta Rousseau, et al. Katrina Airplane Tube Builder Med. 2010;152: 152-158). Other treatment options for the future: Spinal cord stimulation (SCS) has good evidence f or providing penitentiary relief in CRPS (Complex Regional Pain Syndrome) [...] [facility]: [facility] Suggest three ph ase bone [...] [facility] ORDER PLACED 2.2 Physical therapy can reduce pain and improve functional status. Suggest Guillermo Sanon . ORDER PLACED 3. Medication suggestions: 3.1 Continue titrating up duloxetine. 3.2 As for any patient being managed with chronic opioids, we do recommend that the patien t have a signed [facility] Material Risk Notice, agree to whatever [...] her PCP, BJORN Villanueva. DALE CANTU MD Lead Pharmacy Technician, [facility] Public Address System Installer, Pain Medicine Professor, Anesthesiology & Perioperative Medicine [...] | | + +---------+ + + | [facility] DEPARTMENT OF | | | | [...]
--- OUTSIDE RECORDS SUMMARY | ~2020-07-04 | XMS | Encounter Summary ---
Demographics + + + | Address | [address] | | | [place] [address] | + + + | Home Phone [...] Team Providers + +------+ + | Care Non Destructive Testing Specialist Name | Role | Phone | [...] + + | 10/21/ | Hospital | [place] [address] | [place], | | | 2015 - | Encounter | [facility] | MD Tala [address] | | | | | [address] [place] [address] | [facility] | | | 10/25/ | | [place], [place] | [place], [place] | | | 2014 | | [address] | [address] | | | | | [phone] | [phone] | | | | | | | | | | | | Clifton Childers | | | | | | MD Nhan [address] [facility] | | | | | | [facility] | | | | | | [place], [place] | | | | | | [address] | | | | | | [phone] | | | | | | | [...] child. Followed by Dr. Katy berrios at [facility] in [place], [place]. Has been on a stable regimen for [...] agreeable with our plans. Clifton Childers MD Edge Banding Off Bearer Division of Hospital Medicine Teaching Attending I [...] child. Followed by Dr. Katy berrios at [facility] in [place], [place], has been on a stable regimen [...] and plan. Lolita Ma MD, MPH Pager #[phone] PGY-1, Anesthesiology [facility] [...] agreeable with our plans. Clifton Childers MD Edge Banding Off Bearer Division of Hospital Medicine Teaching Attending I [...] child. Followed by Dr. Katy berrios at [facility] in [place], [place], has been on a stable regimen for [...] and plan. Lolita Ma MD, MPH Pager #[phone] PGY-1, Anesthesiology [facility] [...] history, primarily secondary to CPRS in the [facility] ng of complicated ankle fracture age [...] would like the patient to establish in custodial counseling and/or CBT as an outpatient if willing. Patient/Family Goals & Expectations: Above problems discussed with the patient who understands and is agreeable with our plans. Clifton Childers MD Edge Banding Off Bearer Division of Hospital Medicine Teaching Attending I [...] good coping mechanism Heme/Lymphatic: negative Endocrine: negative Mixing Picker Tender: negative Past Medical History: History of chronic [...] for he r CRPS in the pastm [facility] pharmacy does not carry this so we are trying to arrange for her to take her home medication via pharmacy approval 5. APS will sign off but please call with questions/concerns Aba Dorman MD, PGY 3 Program Management Specialist [place]-2 APS Pager: [phone] BILLING INFORMATION Deferred to attending physician. Ms. [...] up at this point. Please contact APS (#[phone]) if further assistance is needed. Ulices Lopez MD BILLING INFORMATION [facility] DEPARTMENT: [phone] Place of Service:- Inpatient Date of Service: 10/23/2015 CSN: [id number] Suggested Modifier: GC - Resident Involved Suggested CPT: 49147 - Follow up visit (includes PNB) - [...] today recd call from Dr. Madrid from [facility]. She has known pt for many yea rs and suggested ketamine and propofol gtt. Updated her on APS recommendations. She will hav e her office fax her clinic records to us. Pt was seen with Dr. Childers. Milton Moreau MD PGY-3, Internal Medicine Pager [phone] Pro Edwards RN - 10/22/2015 10:06 AM PSTActing as scribe for the UR Committee Physician named below. The primary medical team for this patient and the [facility] UR Committee have agreed after furth er study that an inpatient admission was not medically necessary. This hospital stay is con verted to an outpatient stay through use of Medicare Condition Code 44. The patient was not ified of this change in writing. The providers involved in this decision were: For patient s primary medical team: Melissa Childers MD For [facility] UR Committee: Kerry HARRIS RN CM ACM [...] | | | LABORATORY | | | IRANIAN | | | SERVICES, | | | [...] | + + + + + | [facility] | [address] | [place] [address] | | | SERVICES, CORE | PARK [...] | | + +---------+ + + | [facility] DEPARTMENT OF | | | | | [...] | + + + | STAT | [facility] | | | LABORATORY | | | LILLIAN CROSS | + + + + + + + + | Performing | Address | City/State/Zipcode | Phone Number | | Organization | | | | + + + + + | [facility] | [address] | [place] [address] | | | SERVICESLILLIAN | [address] [...] | | | LABORATORY | | | IRANIAN | | | SERVICES, | | | [...] the MDRD equation recommended by the | [facility] | | National Kidney Disease Education Program. [...] [facility] | [address] | [place] [address] | | | SERVICES, CORE | PARK [...] | + + + + + | [facility] | [address] | [place] [address] | | | SERVICES, CORE | GUILLERMO [...] [facility] | [address] | [place] [address] | | | SERVICES, CORE | PARK [...] | + + + + + | [facility] | [address] | [place] [address] | | | SERVICES, CORE | PARK [...] | + + + + + | [facility] | [address] [facility] | [place] [address] | | | SERVICES, CORE | GUILLERMO [...] | | | LABORATORY | | | IRANIAN | | | SERVICES, | | | [...] KEVIN [facility] | [address] | [place] [address] | | | SERVICES, CORE | PARK [...] | | | | | 1 dose, [facility] 10/23/15 at 1245 | | PM PST | | | | + +-------+ +-------+---+---+ +---+---+ | | | +---+---+ + +-------+ +--------+---+---+ | ibuprofen (MOTRIN) tablet 600 | Given | 10/25/20 | 600 mg | | | | mg 600 mg, oral, EVERY 6 HOURS, | | 15 8:05 | | | | | First dose on [facility] 10/23/15 at | | AM PST [...] | | | | | NEEDED, Starting [facility] 10/23/15 at | | | | [...]
--- OUTSIDE RECORDS SUMMARY | ~2020-07-04 | XMS | Encounter Summary ---
Demographics + + + | Address | [address] | | | [place] [address] | + + + | Home Phone [...] Team Providers + +------+ + | Care Placement Specialist Name | Role | Phone | [...] | | | sympathetic | [place] | [address]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 | FAMILY | Mailstop | | | | | of lower | MEDICINE P | [id number] | | | | | limb | [address] | [place], [place] | | | | | | [place], | [address] | | | | | | [place] [address] | Phone: | | | | | | Phone: | [phone] | | | | | | [phone] | Fax: | | | | | | Fax: | [phone] | | | | | | [phone] | | +--------+--------+ + + + + Encounter Details +--------+---------+ + + + | Date | Type | Department | Care Team | Description | +--------+---------+ + + + | 09/04/ | Office | [facility] Comprehensive | Dale Cantu, | CRPS (complex | | 2011 | Visit | Pain Center at | [address] [facility] [address] [facility] | regional pain | | | | [facility] | [facility] [id number] | syndrome), lower | | | | [address] | [place], [place] | limb; Gait | | | | [facility] | [address] | disturbance; Sleep | | | | and Healing, | [phone] | disturbance, | | | | Building | | unspecified; | | | | Floor [place], [place] | | Adjustment reaction | | | | [address] | | | | | | [phone] | | | +--------+---------+ + + + [...] intravenous immunoglobulin infusion in CRPS patients (Loretta Rousseau et al. Katrina Insurance Defense Paralegal Med. 2010;152:152-158) . Bisphosphonate trial. Typically, I [...] fear of physical activity and social withdrawal Dale Abraham MD - 09/04/2012 7:45 AM PDT [facility] Return Visit with Dr. Dale Cantu 09/04/2012 Tracie Farah; ; : 1990 Chief Complaint Patient presents with Return Patient Buttock pain Hip pain Leg Pain Knee pain Foot pain History of Present Illness: Ms. Farah was last seen by me on 08/04/2012 in follow up of her spinal cord stimulator t rial.. She is here today for a follow [...] and a pain drawing which I reviewed. [facility] Brief Pain Inventory: (ten= worst possible [...] cord stimulator trial last month with [facility] equipment wit h no benefit to her [...] Trial spinal cord stimulator leads 08/02/2012 [facility], Surgeon: Dale Cantu MD Family History [...] The Review of Systems obtained by the [facility] was reviewed. Additional Review of Systems sean ts: None additional. PE: BP 136/67 | [...] use of this class in CRPS (Maxine melendez F, et al Journal of Pain: 13(1):17-21, 2008). DALE CANTU MD Decision Science Analyst, [facility] Architectural Technologist, Pain Medicine Professor, Anesthesiology & Perioperative Medicine [...]
--- OUTSIDE RECORDS SUMMARY | ~2020-07-04 | XMS | Encounter Summary ---
Demographics + + + | Address | [address] | | | [place] [address] | + + + | Home Phone [...] Team Providers + +------+ + | Care Felter Tennis Balls Name | Role | Phone | + +------+ + | Justo Vazquez MD | PCP | | + +------+ + Encounter Details +--------+ + + + + | Date | Type | Department | Care Team | Description | +--------+ + + + + | 08/30/ | Documentati | Pain Center at [facility] | Jamel Madden G, | | | 2018 | on | [address] | PhD [address] | | | | | [facility] | [place], [place] | | | | | and Healing, | [address] | | | | | | [phone] | | | | | Floor [place], [place] | | | | | | [address] | | | | | | [phone] | | | +--------+ + + + [...]
--- OUTSIDE RECORDS SUMMARY | ~2020-07-04 | XMS | Encounter Summary ---
Demographics + + + | Address | [address] | | | [place] [address] | + + + | Home Phone | | + + + | Preferred Language | Unknown | + + + | Marital Status | Single | + + + | Jewish Affiliation | 1073 | + + + | Race | White | + + + | Ethnic Group | Not or | + + + Author + + + | Author | [facility] | | | and [place] | + + + | Organization | [facility] | | | [...] [place] | | | | | [address] | | + + + + + | Bryant Farah | ECON | Unknown | | + + + + + Care Team Providers + +------+ + | Care Skin Drier Name | Role | Phone | + +------+ + PCP | Unavailable | + +------+ + Encounter Details +--------+ + + + + | Date | Type | Department | Care Team | Description | +--------+ + + + + | 03/20/ | Hospital | [facility] | Ulices Hayes, | 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 T his also failed to provide [...] stable condition. She will follow-up with her [facility] physician for continued medical management. She [...] 03/22/131929 Date of Service: 03/22/131920 Status: Signed Panel Laminator: Ava Sue RN (Registered Nurse) Patient tolerated [...] 03/22/131854 Date of Service: 03/22/131854 Status: Signed Panel Laminator: Ava Sue RN (Registered Nurse) Discharge teaching [...] 0657 Date of Service: 03/22/13651 Status: Signed Panel Laminator: Ulices Hayes MD (Physician) [facility] Service: Interventional Pain Management Pre-Operative History [...] Author: JUSTIN Ospina Service: (none) Author Type: Director Alumni Relations Filed: 03/21/131035 Date of Service: 03/21/131031 Status: Addendum Panel Laminator: JUSTIN Ospina (Director Alumni Relations) Related Notes: Original Note by JUSTIN Ospina (Director Alumni Relations) filed at 03/21/13 1 036 Met w/22yo F Pt who lives w/parents in [place], [place]. Pt lives in two story house [...] home. Pt has info for financial co Aarkior. lices Brock MD - 03/21/2013 7:27 AM PDT Progress Notes by Ulices Hayes MD at 03/21/13726 Author: Ulices Hayes MD Service: Interventional Pain Management Author Type: Physic deya Filed: 03/21/1335 Date of Service: 03/21/13726 Status: Signed Panel Laminator: Ulices Hayes MD (Physician) [facility] Service: Interventional Pain Management Pre-Operative History [...] (none) Author Type: Registered Nurse Filed: 03/21/13 0646 Date of Service: 03/21/13639 Status: Signed Panel Laminator: Darlin Orlando RN (Registered Nurse) Pt had [...] Date of Service: 03/19/13 1034 Status: Addendum Panel Laminator: Ulices Hayes MD (Physician) Related Notes: Original Note by Nataliia Lindsey RN (Registered Nurse) filed at 03/19/13 1 049 [facility] Service: Interventional Pain Management History and Physical [...] since. She has undergone extensive therapy at [facility] at pain clinics in [place] as well and [place], [place]. She has had sympathetic nerv e [...] oriented x4. Head: Normocephalic and atraumatic. Eyes: [place] conjunctiva and sclera clear Mouth: No deformity [...] since. She has undergone extensive therapy at [facility] at pain clinics in [place] as well and [place], [place]. She has had sympathetic nerve blocks [...] the patient regarding possible treatments. Although I ge mattally don't like to consider intrathecal pain medications [...] 03/22/13838 Date of Service: 03/22/13838 Status: Signed Panel Laminator: Ava Sue RN (Registered Nurse) Problem: Pain [...] of Care by Marleen Sheppard RN at 03/22/13 0215 Author: Marleen Sheppard RN Service: (none) Author Type: Registered Nurse Filed: 03/22/135 Date of Service: 03/22/13214 Status: Signed Panel Laminator: Marleen Sheppard RN (Registered Nurse) Problem: Pain [...] of Care by Ava Sue RN at 03/21/131057 Author: Ava Sue RN Service: (none) Author Type: Registered Nurse Filed: 03/21/13 1058 Date of Service: 03/21/131057 Status: Signed Panel Laminator: Ava Sue RN (Registered Nurse) Problem: Pain [...] Service: (none) Author Type: Registered Nurse Filed: 03/20/13 5522 Date of Service: 03/20/131899 Status: Signed Panel Laminator: Justo Romeo RN (Registered Nurse) Problem: Pain [...] concerns with family and staff. p Not jorge - Ulices Hayes MD - 03/20/2013 11:24 AM PDT Op Note by Ulices Hayes MD at 03/20/13 9224 Author: Ulices Hayes MD Service: Interventional Pain Management Author Type: Physic deya Filed: 03/20/13 1132 Date of Service: 03/20/13 1124 Status: Signed Panel Laminator: Ulices Hayes MD (Physician) [facility] Service: Interventional Pain Management Operative Note Pre-operative Diagnosis: #1. Complex regional pain syndrome. #2. Chronic pain syndrome Post-operative Diagnosis: Same Procedure(s): Placement of intrathecal catheter for trial of intrathecal pain medications for pain control. Surgeon: ULICES HAYES MD Grain Drier(s): none Anesthesia: Moderate sedation and local anesthesia. [...] skin and subcutaneous tissues at the knee replace ent site were anesthetized with 5 cc [...]
--- OUTSIDE RECORDS SUMMARY | ~2020-07-04 | XMS | Encounter Summary ---
Demographics + + + | Address | [address] | | | [place] [address] | + + + | Home Phone [...] Team Providers + +------+ + | Care Flare Stitcher Name | Role | Phone | + +------+ + | Justo Vazquez MD | PCP | | + +------+ + Encounter Details +--------+ + + + + | Date | Type | Department | Care Team | Description | +--------+ + + + + | 01/06/ | Document-Ny | [facility] | Alex Sanchez, | | | 2018 | annemily | Pain Center at | ,PhD [address] | | | | | [facility] | [address] | | | | | [address] | [place], [place] | | | | | [place] for [facility] | [address] | | | | | and Healing, | [phone] | | | | | | | | | | | Floor [place], [place] | | | | | | [address] | | | | | | [phone] | | | +--------+ + + + [...]
--- OUTSIDE RECORDS SUMMARY | ~2020-07-04 | XMS | Encounter Summary ---
Demographics + + + | Address | [address] | | | [place] [address] | + + + | Home Phone [...] Team Providers + +------+ + | Care Biomechanical Engineer Name | Role | Phone | [...] Pharmacy | | | | | | [address] | | | | | | Loop [place], [place] | | | | | | [address] | | | | | | [phone] | | | +--------+ + + + [...]
--- OUTSIDE RECORDS SUMMARY | ~2020-07-04 | XMS | Encounter Summary ---
Demographics + + + | Address | [address] | | | [place] [address] | + + + | Home Phone [...] Providers + +------+ + | Care Quarry Worker Name | Role | Phone | [...] | Procedures | [place] | [facility], | | | | | CONSULT TO | [address] | [place] | | | | | PAIN | | [address] | | | | | MANAGEMENT | | Phone: | | | | | | | [phone] | | | | | | | Fax: | | | | | | | [phone] | +--------+--------+ + + + + Encounter Details +--------+---------+ + + + | Date | Type | Department | Care Team | Description | +--------+---------+ + + + | 04/23/ | Office | Pain Center at [facility] | Alex Sanchez, | Complex regional | | 2019 | Visit | [address] | ,PhD [address] | pain syndrome type 1 | | | | Center for [facility] | [address] | of left lower | | | | and Healing, | [place], [place] | extremity (Primary | | | | Building | [address] | Dx); Other chronic | | | | Floor [place], [place] | [phone] | pain ; S/P insertion | | | | [address] | | of spinal cord | | | | [phone] | | stimulator | +--------+---------+ + + [...] the time to see us in the [facility]. It was great to s ee you. Below is a summary of the discussion that we had today: - I will provide you with a prescription for oxycodone to use only for your monthly pain fl garo. - We reviewed and signed an opioid agreement today. - Please visit the lab on the 1st floor of [facility] to provide a urine sample for [...] fox in our notes. Alex Sanchez MD,PhD [facility] signed by Alex Sanchez MD,PhD at [...] Aleta Lam MD - 1:00 PM PDT [facility] Return Visit Date: 04/23/2019 Chief Complaint Patient presents with Pain in left leg from the knee downl Back pain where battery pack is located History of Present Illness: Tracie Farah is a 28 year old female, whose last appoi ntment at the [facility] was December 22, [...] leg pain due to the boone that [facility] has in place. She is looking [...] - DRG Spinal cord stimulator trial with Esanex system (09/25/2018) with 30-40% im provement of typical pain with significant improvement in mobility and function - Left popliteal/sciatic nerve injection AND abdominal scar trigger point injection ( 018) - Spinal cord stimulator trial with Esanex system by Janak Riojas MD (08/02/2012) - Left L3 lumbar sympathetic block by Janak Riojas MD (03/01/2012) Opioid Risk Tool (ORT) 04/23/2019 [facility] Brief Pain Inventory: (ten= worst possible pain [...] Hemroidectomy Trial spinal cord stimulator leads 08/02/2012 Esanex, Surgeon: Janak Riojas MD Cholecystectomy Appendectomy Other [...] History Social History Narrative Single. Goes to [employer] with a light load. Has been working at [employer], can' t work on [employer]. Has roommates. Allergies Allergen Reactions Morphine Anaphylaxis [...] nausea Abdominal pain Abdominal scar neuroma [facility] CLINICAL PROTOCOL PATIENT (CLNPRO) - [...] and summary of old medical records (source: [employer]), as summarized in the body of [...] We performed DRG SCS trial with the [employer] [facility] on 09/25/2018 which provided her with [...] ago. She has not spoken with the [employer] representatives about this. I encouraged her to [...] Key. Aleta Rebollar MD PAIN CENTER AT [facility] 15TH FLO[address] [facility] Mail Code: [id number] [place] [id number] do cumented in this encounter Plan of [...] + + + + + | [facility] | [address] | [place] [address] | | | SERVICES, CORE | GUILLERMO [...]
--- OUTSIDE RECORDS SUMMARY | ~2020-07-04 | XMS | Encounter Summary ---
Demographics + + + | Address | [address] | | | [place] [address] | + + + | Home Phone [...] Team Providers + +------+ + | Care Hr Specialist Name | Role | Phone | [...] 2016 | | Pain Center at | BUCKET PUSHER [address] | | | | | [facility] | [place], [place] | | | | | [address] | [address] | | | | | [facility] | [phone] | | | | | and Healing, | | | | | | [facility] | | | | | | [place], [place] | | | | | | [address] | | | | | | [phone] | | | +--------+ + + + [...]
--- OUTSIDE RECORDS SUMMARY | ~2020-07-04 | XMS | Encounter Summary ---
Demographics + + + | Address | [address] | | | [place] [address] | + + + | Home Phone [...] Team Providers + +------+ + | Care Carbonation Equipment Tender Name | Role | Phone | + +------+ + | Justo Vazquez MD | PCP | | + +------+ + Encounter Details +--------+ + + + + | Date | Type | Department | Care Team | Description | +--------+ + + + + | 05/18/ | Telephone | [facility] | Alex Sanchez, | | | 2019 | | Pain Center at | ,PhD [address] | | | | | [facility] | [address] | | | | | [address] | [place], [place] | | | | | [place] for [facility] | [address] | | | | | and Healing, | [phone] | | | | | | | | | | | Floor [place], [place] | | | | | | [address] | | | | | | [phone] | | | +--------+ + + + [...]
--- OUTSIDE RECORDS SUMMARY | ~2020-07-04 | XMS | Encounter Summary ---
Demographics + + + | Address | [address] | | | [place] [address] | + + + | Home Phone [...] Team Providers + +------+ + | Care Warranty Clerk Name | Role | Phone | [...] | (ortho question) | | | | [facility] | [facility] | | | | | [address] | [place], [place] | | | | | [facility] | [address] | | | | | and Healing, | [phone] | | | | | | | | | | | Floor [place], [place] | | | | | | [address] | | | | | | [phone] | | | +--------+ + + + [...]
--- OUTSIDE RECORDS SUMMARY | ~2020-07-04 | XMS | Encounter Summary ---
Demographics + + + | Address | [address] | | | [place] [address] | + + + | Home Phone [...] Team Providers + +------+ + | Care Shipping/Receiving Manager Name | Role | Phone | + +------+ + | Justo Vazquez MD | PCP | | + +------+ + Encounter Details +--------+ + + + + | Date | Type | Department | Care Team | Description | +--------+ + + + + | 07/28/ | Documentati | [facility] Comprehensive | Ilene Bright, | | | 2017 | on | Pain Center at | CLINICAL RESOURCE MANAGER [address] | | | | | [facility] | [facility] [place] | | | | | [address] | [address] | | | | | [facility] for [facility] | [phone] | | | | | and Healing, | | | | | | | | | | | | Floor [place], [place] | | | | | | [address] | | | | | | [phone] | | | +--------+ + + + [...]
--- OUTSIDE RECORDS SUMMARY | ~2020-07-04 | XMS | Encounter Summary ---
Demographics + + + | Address | [address] | | | [place] [address] | + + + | Home Phone [...] Team Providers + +------+ + | Care Interior Painter Name | Role | Phone | [...] | | | | | Procedures | [place], [place] | | | | | | MR | [id number] | | | | | | ENTEROGRAPHY [...] | | | | | Procedures | [place], [place] | | | | | | MR | [id number] | | | | | | ENTEROGRAPHY [...] | 2017 | Encounter | Services at [facility] | [address] | | | | | [address] | [place], [place] | | | | | Giuliana Maldon[address] [place] | [address] | | | | | [facility] | [phone] | | | | | [place], [place] | | | | | | [address] | | | | | | [phone] | | | +--------+ + + + [...]
--- OUTSIDE RECORDS SUMMARY | ~2020-07-04 | XMS | Encounter Summary ---
Demographics + + + | Address | [address] | | | [place] [address] | + + + | Home Phone [...] Providers + +------+ + | Care Junior Engineer Name | Role | Phone | [...] + | 10/06/ | Telephone | [facility] Comprehensive | Yosef Kenney MD | Dermatitis | | 2018 | | Pain Center at | [address] | | | | | [facility] | [facility] | | | | | [address] | [place] [address] | | | | | [facility] | [phone] | | | | | and Healing, | | | | | | [facility] | | | | | | [place], [place] | | | | | | [address] | | | | | | [phone] | | | +--------+ + + + [...]
--- OUTSIDE RECORDS SUMMARY | ~2020-07-04 | XMS | Encounter Summary ---
Demographics + + + | Address | [address] | | | [place] [address] | + + + | Home Phone [...] Team Providers + +------+ + | Care Corrugated Sheet Material Sheeter Name | Role | Phone | + [...] | | | sympathetic | [place] | [address]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 | FAMILY | [address] | | | | | of lower | MEDICINE P | [id number] | | | | | limb | [address] | [place], [place] | | | | | | [place], | [address] | | | | | | [place] [address] | Phone: | | | | | | Phone: | [phone] | | | | | | [phone] | Fax: | | | | | | Fax: | [phone] | | | | | | [phone] | | +--------+--------+ + + + + Encounter Details +--------+---------+ + + + | Date | Type | Department | Care Team | Description | +--------+---------+ + + + | 08/04/ | Office | [facility] | Dale Cantu, | CRPS (complex | | 2011 | Visit | Pain Center at | MD [address] [facility] | regional pain | | | | [facility] | [facility] [address] | syndrome), lower | | | | [address] | [place], [place] | limb (Primary Dx) | | | | [facility] | [address] | | | | | and Healing, | [phone] | | | | | Building | | | | | | Floor [place], [place] | | | | | | [address] | | | | | | [phone] | | | +--------+---------+ + + + [...] evaluated the patient with Fellow Nhan Guo [facility], who conducted the initial history. I reviewed the history in det ail and edited his note. I was present for the examination and formulation portions of the encounter. I agree with the findings and the plan of care as documented in our notes. DALE CANTU MD Glass Production Machine Operator, [facility] Technical Project Manager, Pain Medicine Professor, Anesthesiology & Perioperative [...] physical activity and social withdrawal enok Gutierrez, [facility] - 08/04/2012 7:25 AM PDTFormatting of this note might be different from the origi nal. [facility] Return Visit with Dr. Dale [...] has been treated at the [facility] for lower limb pain with the [...] and a pain drawing which I reviewed. [facility] Brief Pain Inventory: (ten= worst possible [...] The Review of Systems obtained by the [facility] was reviewed. Additional Review of Systems: [...] multiple programs with both [facility] programs, however it appears that it [...] bath today, OK to shower. HENOK GUO [facility] documented in this en counter Plan of Treatment Not on filedocumented as of this encounter Visit Diagnoses + + | Diagnosis | + + | CRPS (complex regional pain syndrome), lower limb - Primary Causalgia of lower limb | + + documented in this encounter
--- OUTSIDE RECORDS SUMMARY | ~2020-07-04 | XMS | Encounter Summary ---
Demographics + + + | Address | [address] | | | [place] [address] | + + + | Home Phone [...] Team Providers + +------+ + | Care Roadway Designer Name | Role | Phone | [...] | | Pain Center at | ,PhD [address] [facility] | | | | | [facility] | [address] | | | | | [address] | [place], [place] | | | | | [facility] | [address] | | | | | and [place], | [phone] | | | | | [facility] | | | | | | Floor [place], [place] | | | | | | [address] | | | | | | [phone] | | | +--------+--------+ + + + [...]
--- OUTSIDE RECORDS SUMMARY | ~2020-07-04 | XMS | Encounter Summary ---
Demographics + + + | Address | [address] | | | [place] [address] | + + + | Home Phone [...] Team Providers + +------+ + | Care Miner Helper Name | Role | Phone | [...] | | | [address] | [facility] | | | | | [place], [place] | [place], [place] | | | | | [address] | [address] | | | | | | [phone] | | | | | | | [...] | + +--------+ + + + | JIG MAKER MISC PROCEDURE | Routin | 12/27/2017 | Complex regional | Results for this | | | e | 3:28 PM | pain syndrome type 1 | procedure are in the | | | | PST | of left lower | results section. | | | | | extremity | | + +--------+ + + + documented in this encounter Results [facility] MISC PROCEDURE (12/27/2017 3:28 PM PST) + [...]
--- OUTSIDE RECORDS SUMMARY | ~2020-07-04 | XMS | Encounter Summary ---
Demographics + + + | Address | [address] | | | [place] [address] | + + + | Home Phone [...] Providers + +------+ + | Care Instructional Support Services Director Name | Role | Phone | + +------+ + | Justo Vazquez MD | PCP | | + +------+ + Encounter Details +--------+ + + + + | Date | Type | Department | Care Team | Description | +--------+ + + + + | 03/12/ | Telephone | [facility] | Alex Sanchez, | | | 2019 | | Pain Center at | ,PhD [address] | | | | | [facility] | [address] | | | | | [address] | [place], [place] | | | | | [place] for [facility] | [address] | | | | | and Healing, | [phone] | | | | | | | | | | | Floor [place], [place] | | | | | | [address] | | | | | | [phone] | | | +--------+ + + + [...]
--- OUTSIDE RECORDS SUMMARY | ~2020-07-04 | XMS | Encounter Summary ---
Demographics + + + | Address | [address] | | | [place] [address] | + + + | Home Phone [...] Team Providers + +------+ + | Care Picker And Packer Name | Role | Phone | [...] + + | 08/08/ | Emergency | [facility] Emergency | Mable Villarreal MD | | | 2015 | | Department [address] | [address] [facility] | | | | | [address] | [address] | | | | | [facility] | [place], [place] | | | | | [place], [place] | [address] | | | | | [address] | [phone] | | | | | [phone] | | | | | | | [...] about "Gastroparesis: Care Instructions", log into your Headroom account at [email or web address]. You can enter M106 in the apomio" search box. Not on Headroom? Review the Headroom section of your After Visit Summary for directions on ho w to sign up. 5982-2912 [email or web address]. Care instructions adapted under license by [facility] [employer] [place]. This care instruction is for use with your licensed healthcar e professional. If you have questions about a medical condition or this instruction, always ask your healthcare professional. [email or web address] disclaims any warranty or liabili ty for your use of this information. Content Version: 11.0.224838; Current as of: October 03, 2015 documented [...] | | | LABORATORY | | | NIGERIEN | | | SERVICES, | | | [...] | + + + + + | [facility] | [address] | [place] [address] | | | SERVICES, CORE | GUILLERMO [...] DEPT OF | [address] | [place], [place] | | | CARDIOLOGY | [address] | [address] | | + + + + + [...] | + + + + + | [facility] | [address] | [place] [address] | | | SERVICES, CORE | [address] [...] [facility] | [address] | [place] [address] | | | SERVICES, LILLIAN | [address]LLERMO [...] KEVIN SHAH | [address] | [place] [address] | | | SERVICES, CORE | [address] [...] | + + + + + | [facility] | [address] | [place] [address] | | | [facility] | [address] | | | + [...] may result in clinically misleading | [facility] | | information due to the low numbers and /or mixture of organisms | | | present. Recollection is suggested if clinically indicated. | | + + + + + + + + | Performing | Address | City/State/Zipcode | Phone Number | | Organization | | | | + + + + + | [facility] | [address] | [place] [address] | | | [place] | | | | + + + [...] [facility] | [address] | [place] [address] | | | SERVICES, CORE | [address] [...] | + + + + + | [facility] | [address] | [place] [address] | | | SERVICES, CORE | [address] | | | + + + + + LIPASE, PLASMA (08/08/2016 2:22 PM PDT) + +---------+ + + + | Component | Value | Ref Range | Performed | Pathologist | | | | | At | Signature | + +---------+ + + + | LIPASE | 116 (L) | 152 - 353 U/L | [facility] | | | (LAB) | | | [...] | + + + + + | [facility] | [address] [address] | [place] [address] | | | SERVICES, CORE | [address] [...] | | | LABORATORY | | | NIGERIEN | | | SERVICES, | | | [...] | + + + + + | [facility] | [address] | [place] [address] | | | SERVICES, CORE | [address] | | | + + + + + ED INFORMATION EXCHANGE (08/08/2016 12:21 PM PDT) + + + + + + | Component | Value | Ref Range | Performed | Pathologist | | | | | At | Signature | + + + + + + | [facility] | [id number] | | COLLECTIVE | | | | [id number] | | MEDICAL | | | | [...] | | | 08/08/2016 12:21 [facility] and | | | [facility] [place] [address]. abd pain | | | 08/04/2016 03:50 [facility] | | | [place] Emergency ABD PAIN,VOMITING 06/26/2016 22:44 | | | [facility] [place] | | | Emergency -Acquired absence of other specified parts of | | | | | | digestive | | | tract | | | | | | -Gastroparesis | | | | | | -Unspecified abdominal pain | | | | | | -Gastro-esophageal reflux disease without | | | esophagitis | | | | | | -Other long term care administrator (current) drug therapy 06/22/2016 17:35 | | [facility] [place] [facility] | [facility] -abd pain, "I have gastroparesis", since , seen | | | | | | at St | | | [facility] yesterday. has been to the er | | | | | | several times | | | | | | -Abdominal Pain | | | | | | -Gastroparesis 06/19/2016 | | | 04:51 [facility] [place] | | | [place] Emergency -Gastroparesis | | | | | | -Unspecified abdominal pain | | | | | | -Other long term care administrator | | | (current) drug therapy | | | | | | -Acquired absence of other specified parts of | | | | | | digestive tract | | | 06/18/2016 07:18 [facility] | | | [place] Emergency [...] Location ------ --------- 1 | | | [facility] 1 | | | [facility] 8 [facility] 10 | | | Total [...] COLLECTIVE MEDICAL | [address] | [place], [place] | [phone] | | TECHNOLOGIES | [address] | [address] | | + + + + + [...]
--- OUTSIDE RECORDS SUMMARY | ~2020-07-04 | XMS | Encounter Summary ---
Demographics + + + | Address | [address] | | | [place] [address] | + + + | Home Phone [...] Providers + +------+ + | Care Solar System Installer Name | Role | Phone | + +------+ + | Justo Vazquez MD | PCP | | + +------+ + Encounter Details +--------+ + + + + | Date | Type | Department | Care Team | Description | +--------+ + + + + | 01/06/ | Document-Co | [facility] | Alex Sanchez, | | | 2018 | annemily | Pain Center at | ,PhD [address] | | | | | [facility] | [facility] [address] | | | | | [address] | [place], [place] | | | | | [place] for [facility] | [address] | | | | | and Healing, | [phone] | | | | | | | | | | | Floor [place], [place] | | | | | | [address] | | | | | | [phone] | | | +--------+ + + + [...]
--- OUTSIDE RECORDS SUMMARY | ~2020-07-04 | XMS | Encounter Summary ---
Demographics + + + | Address | [address] | | | [place] [address] | + + + | Home Phone [...] Team Providers + +------+ + | Care Parts Finisher Name | Role | Phone | [...] | | 2015 | | Center at [facility] [address] MD | Treatment Planning | | | | [address] [place] | | | | | | for Health and | | | | | | [facility] [address] | | | | | | [place], [place] | | | | | | [address] | | | | | | [phone] | | | +--------+ + + + [...]
--- OUTSIDE RECORDS SUMMARY | ~2020-07-04 | XMS | Encounter Summary ---
Demographics + + + | Address | [address] | | | [place] [address] | + + + | Home Phone [...] Team Providers + +------+ + | Care Master Fire Control Technician Name | Role | Phone | + +------+ + | Justo Vazquez MD | PCP | | + +------+ + Encounter Details +--------+ + + + + | Date | Type | Department | Care Team | Description | +--------+ + + + + | 06/07/ | Telephone | [facility] | Alex Sanchez, | | | 2019 | | Pain Center at | ,PhD [address] | | | | | [facility] | [address] | | | | | [address] | [place], [place] | | | | | [place] for [facility] | [address] | | | | | and Healing, | [phone] | | | | | | | | | | | Floor [place], [place] | | | | | | [address] | | | | | | [phone] | | | +--------+ + + + [...]
--- OUTSIDE RECORDS SUMMARY | ~2020-07-04 | XMS | Encounter Summary ---
Demographics + + + | Address | [address] | | | [place] [address] | + + + | Home Phone [...] Team Providers + +------+ + | Care Territory Sales Representative Name | Role | Phone [...] | | 2016 | | Center at [facility] [address] | MD Melissa | | | | | [address] [place] | | | | | | for Health and | | | | | | Healing, Building [address] | | | | | | [place], [place] | | | | | | [address] | | | | | | [phone] | | | +--------+ + + + [...]
--- OUTSIDE RECORDS SUMMARY | ~2020-07-04 | XMS | Encounter Summary ---
Demographics + + + | Address | [address] | | | [place] [address] | + + + | Home Phone [...] Team Providers + +------+ + | Care Lab Coordinator Name | Role | Phone | [...] Rd | | | | | | [place], [place] | | | | | | [address] | | | +--------+ + + + [...]
--- OUTSIDE RECORDS SUMMARY | ~2020-07-04 | XMS | Encounter Summary ---
Demographics + + + | Address | [address] | | | [place] [address] | + + + | Home Phone [...] Team Providers + +------+ + | Care Complaint Specialist Name | Role | Phone | + +------+ + | Justo Vazquez MD | PCP | | + +------+ + Encounter Details +--------+ + + + + | Date | Type | Department | Care Team | Description | +--------+ + + + + | 08/03/ | Telephone | [facility] | Alex Sanchez, | | | 2018 | | Pain Center at | ,PhD [address] | | | | | [facility] | [address] | | | | | [address] | [place], [place] | | | | | [place] for [facility] | [address] | | | | | and Healing, | [phone] | | | | | | | | | | | Floor [place], [place] | | | | | | [address] | | | | | | [phone] | | | +--------+ + + + [...]
--- OUTSIDE RECORDS SUMMARY | ~2020-07-04 | XMS | Encounter Summary ---
Demographics + + + | Address | [address] | | | [place] [address] | + + + | Home Phone [...] Providers + +------+ + | Care Physician Advisor Name | Role | Phone | [...] Vomiting; | | 2016 | | Center [place] [address] [address] | | Constipation; | | | | [address] [place] | | Abdominal pain | | | | for Health and | | | | | | Healing, Building [address] | | | | | | [place], [place] | | | | | | [address] | | | | | | [phone] | | | +--------+ + + + [...]
--- OUTSIDE RECORDS SUMMARY | ~2020-07-04 | XMS | Encounter Summary ---
Demographics + + + | Address | [address] | | | [place] [address] | + + + | Home Phone [...] Providers + +------+ + | Care Certified Personal Finance Counselor Name | Role | Phone | + [...] + + | 08/08/ | Emergency | [facility] Emergency | Mable Villarreal MD | | | 2015 | | Department [address] | [address] [facility] | | | | | [address] | [address] | | | | | [facility] | [place], [place] | | | | | [place] | [address] | | | | | [address] | [phone] | | | | | [phone] | | | | | | | [...] about "Gastroparesis: Care Instructions", log into your Mlog account at [email or web address]. You can enter M106 in the TapFit" search box. Not on Mlog? Review the Mlog section of your After Visit Summary for directions on ho w to sign up. 4090-0224 Lexara. Care instructions adapted under license by [facility] [employer]. This care instruction is for use with your licensed healthcar e professional. If you have questions about a medical condition or this instruction, always ask your healthcare professional. Lexara disclaims any warranty or liabili ty for your use of this information. Content Version: 11.0.003955; Current as of: October 03, 2015 documented [...] | | | LABORATORY | | | LUXEMBOURGER | | | SERVICES, | | | [...] | + + + + + | [facility] | [address] | [place] [address] | | | SERVICES, CORE | GUILLERMO [...] DEPT OF | [address] | [place], [place] | | | CARDIOLOGY | [address] | [address] | | + + + + + [...] + + + + + | [facility] | [address] | [place] [address] | | | SERVICES, CORE | PARK [...] [facility] | [address] | [place] [address] | | | SERVICES, LILLIAN | GUILLERMO [...] KEVIN SHAH | [address] | [place] [address] | | | SERVICES, CORE | PARK [...] | + + + + + | [facility] | [address] | [place] [address] | | | [facility] | [address] | | | + [...] organisms may result in clinically misleading | [facility] | | information due to the low numbers and /or mixture of organisms | | | present. Recollection is suggested if clinically indicated. | | + + + + + + + + | Performing | Address | City/State/Zipcode | Phone Number | | Organization | | | | + + + + + | [facility] | [address] | [place] [address] | | | [place] | | | | + + + [...] [facility] | [address] | [place] [address] | | | SERVICES, CORE | PARK [...] + + + + + | [facility] | [address] | [place] [address] | | | SERVICES, CORE | [address] | | | + + + + + LIPASE, PLASMA (08/08/2016 2:22 PM PDT) + +---------+ + + + | Component | Value | Ref Range | Performed | Pathologist | | | | | At | Signature | + +---------+ + + + | LIPASE | 116 (L) | 152 - 353 U/L | [facility] | | | (LAB) | | [...] | + + + + + | [facility] | [address] | [place] [address] | | | SERVICES, CORE | [address]ER[address] [...] | | | LABORATORY | | | LUXEMBOURGER | | | SERVICES, | | | [...] | + + + + + | [facility] | [address] | [place] [address] | | | SERVICES, CORE | [address] | | | + + + + + ED INFORMATION EXCHANGE (08/08/2016 12:21 PM PDT) + + + + + + | Component | Value | Ref Range | Performed | Pathologist | | | | | At | Signature | + + + + + + | [facility] | [id number] | | COLLECTIVE | | | | [id number] | | MEDICAL | | | | [...] ------- ---- | | | 08/08/2016 12:21 [facility] and | | | [facility] [place] Emergency [address]. abd pain | | | 08/04/2016 03:50 [facility] | | | [place] Emergency ABD PAIN,VOMITING 06/26/2016 22:44 | | | [facility] [place] | | | Emergency -Acquired absence of other specified parts of | | | | | | digestive | | | tract | | | | | | -Gastroparesis | | | | | | -Unspecified abdominal pain | | | | | | -Gastro-esophageal reflux disease without | | | esophagitis | | | | | | -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 06/22/2016 17:35 | | [facility] [place] [facility] | [facility] -abd pain, "I have gastroparesis", since , seen | | | | | | at St | | | [facility] yesterday. has been to the er | | | | | | several times | | | | | | -Abdominal Pain | | | | | | -Gastroparesis 06/19/2016 | | | 04:51 [facility] [place] | | | [place] Emergency -Gastroparesis | | | | | | -Unspecified abdominal pain | | | | | | -Other ferry terminal agent | | | (current) drug therapy | | | | | | -Acquired absence of other specified parts of | | | | | | digestive tract | | | 06/18/2016 07:18 [facility] | | | [place] Emergency [...] ------ --------- 1 | | | [facility] 1 | | | [facility] 8 [facility] 10 | | | Total [...] COLLECTIVE MEDICAL | [address] | [place], [place] | [phone] | | TECHNOLOGIES | [address] | [address] | | + + + + + [...]
--- OUTSIDE RECORDS SUMMARY | ~2020-07-04 | XMS | Encounter Summary ---
[...] Team Providers + +------+ + | Care Mental Telepathist Name | Role | Phone | + [...] + + | 06/07/ | Telephone | [facility] Ilene | Ilene Bright, | Care Coordination | | 2016 | | Pain Center at | DENTAL TECH [address] | | | | | [facility] | [place], [place] | | | | | [address] | [address] | | | | | [facility] | [phone] | | | | | and Healing, | | | | | | Building , | | | | | | Floor [place], [place] | | | | | | [address] | | | | | | [phone] | | | +--------+ + + + [...]
--- OUTSIDE RECORDS SUMMARY | ~2020-07-04 | XMS | Encounter Summary ---
Demographics + + + | Address | [address] | | | [place] [address] | + + + | Home Phone [...] + +------+ + | Care Professor Of Engineering Name | Role | Phone | [...] | Orthopedics | Diagnoses | Sdrulla, | [place], | | | | | Complex | Alex Alba, | Ranjeet Odom MD | | | | | regional | ,PhD [address] | [address] | | | | | pain | [address] | [address] | | | | | syndrome | [address] | [place], [place] | | | | | type 1 of | Rd | [address] | | | | | left lower | [place], [place] | Phone: | | | | | extremity | [address] | [phone] | | | | | Procedures | Phone: | Fax: | | | | | CONSULT TO | [phone] | [phone] | | | | | ORTHOPEDICS | Fax: | | | | | | AND | [phone] | | | | | | REHABILITATI [...] | ankle results) | | | | [facility] | [address] | | | | | [address] | [place], [place] | | | | | [facility] | [address] | | | | | and Healing, | [phone] | | | | | | | | | | | Floor [place], [place] | | | | | | [address] | | | | | | [phone] | | | +--------+ + + + [...]
--- OUTSIDE RECORDS SUMMARY | ~2020-07-04 | XMS | Encounter Summary ---
Demographics + + + | Address | [address] | | | [place] [address] | + + + | Home Phone [...] Team Providers + +------+ + | Care Ammonium Nitrate Crystallizer Name | Role | Phone | + [...]
--- OUTSIDE RECORDS SUMMARY | ~2020-07-04 | XMS | Encounter Summary ---
Demographics + + + | Address | [address] | | | [place] [address] | + + + | Home Phone [...] + +------+ + | Care Human Factors Ergonomist Name | Role | Phone | + +------+ + | Justo Vazquez MD | PCP | | + +------+ + Encounter Details +--------+ + + + + | Date | Type | Department | Care Team | Description | +--------+ + + + + | 12/05/ | Procedure | [facility] | | | | 2019 | Pass | [place] [facility] | | | | | | and Healing Surgery | | | | | | Center Admitting | | | | | | Desk Located on the | | | | | | 4th floor [address] | | | | | | [address], | | | | | | [place] [address] | | | +--------+ + + + [...]
--- OUTSIDE RECORDS SUMMARY | ~2020-07-04 | XMS | Encounter Summary ---
Demographics + + + | Address | [address] | | | [place] [address] | + + + | Home Phone [...] Providers + +------+ + | Care Club Steward Name | Role | Phone | [...] Oliveira | | 2011 | IP | [address] | | House - Approved | | | | [place]iana Maldonado [place], | | | | | | [place] [address] | | | +--------+ + + + [...]
--- OUTSIDE RECORDS SUMMARY | ~2020-07-04 | XMS | Encounter Summary ---
Demographics + + + | Address | [address] | | | [place] [address] | + + + | Home Phone [...] Team Providers + +------+ + | Care Dispatcher Automobile Rental Name | Role | Phone | + [...] Medication Question | | 2016 | | [place] [address] [address] | | | | | | [address] | | | | | | for Health and | | | | | | Healing, [facility] | | | | | | [place], [place] | | | | | | [address] | | | | | | [phone] | | | +--------+ + + + [...]
--- OUTSIDE RECORDS SUMMARY | ~2020-07-04 | XMS | Encounter Summary ---
Demographics + + + | Address | [address] | | | [place] [address] | + + + | Home Phone [...] Team Providers + +------+ + | Care Edi Manager Name | Role | Phone | + +------+ + | Justo Vazquez MD | PCP | | + +------+ + Encounter Details +--------+ + + + + | Date | Type | Department | Care Team | Description | +--------+ + + + + | 03/16/ | Telephone | [facility]ive [facility] | Crys Gomez, | | | 2016 | | Center at [facility] [address] | [address] | | | | | [address] | [address] | | | | | [facility] and | [place], [place] | | | | | [facility] | [address] | | | | | [place], [place] | [phone] | | | | | [address] | | | | | | [phone] | | | +--------+ + + + [...]
--- OUTSIDE RECORDS SUMMARY | ~2020-07-04 | XMS | Encounter Summary ---
Demographics + + + | Address | [address] | | | [place] [address] | + + + | Home Phone [...] Team Providers + +------+ + | Care Lamp Tester And Inspector Name | Role | Phone | [...] 2016 | | Pain Center at | DOOR LINER [address] | | | | | [facility] | [place], [place] | | | | | [address] | [address] | | | | | [facility] | [phone] | | | | | and Healing, | | | | | | [facility] | | | | | | [place], [place] | | | | | | [address] | | | | | | [phone] | | | +--------+ + + + [...]
--- OUTSIDE RECORDS SUMMARY | ~2020-07-04 | XMS | Encounter Summary ---
Demographics + + + | Address | [address] | | | [place] [address] | + + + | Home Phone [...] Providers + +------+ + | Care Processing Spec Name | Role | Phone | + [...] | | pain | [address] | [place], [place] | | | | | syndrome | [place] | [address] | | | | | type 1 of | [address] | Phone: | | | | | left lower | Phone: | [phone] | | | | | extremity | [phone] | Fax: | | | | | Midline low | Fax: | [phone] | | | | | back pain | [phone] | | | | | | without [...] Ave | | | | | | [place], [place] | [facility] [place] | | | | | | [address] | [address] | | | | | | Phone: | Phone: | | | | | | [phone] | [phone] | | | | | | Fax: | Fax: | | | | | | [phone] | [phone] | +--------+---------+ + + + + Encounter Details +--------+---------+ + + + | Date | Type | Department | Care Team | Description | +--------+---------+ + + + | 07/04/ | Office | [facility] Comprehensive | Lane Reyes, | Complex regional | | 2019 | Visit | Pain Center at | [place] [address] | pain syndrome type 1 | | | | [place] | [place], [place] | of left lower | | | | [address] | [address] | extremity (Primary | | | | Center for [facility] | [phone] | Dx); Midline low | | | | and Healing, | | back pain without | | | | Building | | sciatica, | | | | Floor [place], [place] | | unspecified | | | | [address] | | chronicity; | | | | [phone] | | Sacroiliac pain; | | | [...] and help in coping with the pain. FLOW TRADER Brief Pain Inventory: (ten= worst possible pain [...] Trial spinal cord stimulator leads 08/02/2012 [facility], Surgeon: Janak Riojas MD Cholecystectomy [...] a light load. Has been working at [employer], can' t work on [employer]on[employer]. Has roommates. Allergies Allergen Reactions Morphine Anaphylaxis [...] directed by [facility] Digestive [facility]- 2 gallon bowel prep POLYETHYLENE GLYCOL 3350 17 GRAM/DOSE ORAL POWDER Take 17 g by mouth once daily. PROMETHAZINE 12.5 MG TABLET Take 1 tablet by mouth four times daily as needed for nausea/vo miting. SUCRALFATE 1 GRAM TABLET Take 1 g by mouth four times daily. Radiology/Diagnostic Tests: X-RAY SPINE CERV 4 VIEWS Order: [id number] Performed: 06/12/2018 11:40 Status: Final result Visible [...] that the treatment performed by the chiropractic risk intern, Niesha Reveles, was directly observed by myself the primary chiropractor Lane Reyes [place] Visit Diagnoses: ICD-10-CM 1. Complex regional pain syndrome type 1 of left lower extremity G90.522 CONSULT TO PAIN [facility] 2. Midline low back pain without sciatica, unspecified chronicity M54.5 CONSULT TO PAIN [facility] 3. Sacroiliac pain M53.3 CONSULT TO PAIN MANAGEMENT [place] CHIROPRAC MANIP,SPINAL,1-2 REGIONS 4. Sacral dysfunction M53.3 [place] CHIROPRAC MANIP,SPINAL,1-2 REGIONS 5. Somatic dysfunction of pelvis region M99.05 [place] CHIROPRAC MANIP,SPINAL,1-2 REGIONS 6. Somatic dysfunction of sacral region M99.04 [place] CHIROPRAC MANIP,SPINAL,1-2 REGIONS Impression: Tracie Farah is [...] verified the above note written by Chiropractic risk intern of our visit wit h this patient as recorded by Lane Reyes [place] [facility] AT [address] Mail Code: Ch15p [place] [address] documented in this e ncounter Plan of Treatment Not on filedocumented as of this encounter Procedures + +--------+ + + + | Procedure Name | Priori | Date/Time | Associated Diagnosis | Comments | | | ty | | | | + +--------+ + + + | [place] CHIROPRAC | Routin | 07/10/2019 | Sacroiliac [...]
--- OUTSIDE RECORDS SUMMARY | ~2020-07-04 | XMS | Encounter Summary ---
Demographics + + + | Address | [address] | | | [place] [address] | + + + | Home Phone [...] Providers + +------+ + | Care Bundle Cutter Name | Role | Phone | [...] | | Pain Center at | ,PhD [address] | follow-up | | | | [facility] | [address] | | | | | [address] | [place], [place] | | | | | [facility] | [address] | | | | | and Martina, | [phone] | | | | | Building | | | | | | Floor [place], [place] | | | | | | [address] | | | | | | [phone] | | | +--------+ + + + [...]
--- OUTSIDE RECORDS SUMMARY | ~2020-07-04 | XMS | Encounter Summary ---
Demographics + + + | Address | [address] | | | [place] [address] | + + + | Home Phone [...] + +------+ + | Care Professor Of Psychiatry Name | Role | Phone | + [...] + + | 08/03/ | Refill | [facility] Comprehensive | Alex Sanchez, | Refill Request | | 2018 | | Pain Center at | ,PhD [address] [facility] | (ketamine) | | | | [facility] | [facility] | | | | | [address] | [place], [place] | | | | | [facility] | [address] | | | | | and [place]ina, | [phone] | | | | | [facility] | | | | | | Floor [place], [place] | | | | | | [address] | | | | | | [phone] | | | +--------+--------+ + + + [...]
--- OUTSIDE RECORDS SUMMARY | ~2020-07-04 | XMS | Encounter Summary ---
Demographics + + + | Address | [address] | | | [place] [address] | + + + | Home Phone [...] Team Providers + +------+ + | Care Guide Tour Name | Role | Phone | + [...] 2016 | | Pain Center at | SAFETY LEADER [address] | | | | | [facility] | [place] | | | | | [address] | [address] | | | | | [facility] | [phone] | | | | | and Healing, | | | | | | Building | | | | | | [place], [place] | | | | | | [address] | | | | | | [phone] | | | +--------+ + + + [...]
--- OUTSIDE RECORDS SUMMARY | ~2020-07-04 | XMS | Encounter Summary ---
Demographics + + + | Address | [address] | | | [place] [address] | + + + | Home Phone | | + + + | Preferred Language | Unknown | + + + | Marital Status | Single | + + + | Confucianism Affiliation | 1073 | + + + | Race | White | + + + | Ethnic Group | Not or | + + + Author + + + | Author | [facility] | | | and [place] | + + + | Organization | [facility] | | | [...] [place] | | | | | [address] | | + + + + + | Bryant Farah | ECON | Unknown | | + + + + + Care Team Providers + +------+ + | Care Paper And Prints Restorer Name | Role | Phone | + +------+ + PCP | Unavailable | + +------+ + Encounter Details +--------+ + + + + | Date | Type | Department | Care Team | Description | +--------+ + + + + | 07/26/ | Hospital | [facility] | | | | 2008 | Encounter | [facility] | | | | | | CENTER [address] | | | | | | [place], [place] | | | | | | [address] | | | | | | [phone] | | | +--------+ + + + [...]
--- OUTSIDE RECORDS SUMMARY | ~2020-07-04 | XMS | Encounter Summary ---
Demographics + + + | Address | [address] | | | [place] [address] | + + + | Home Phone [...] Team Providers + +------+ + | Care Exhaust Worker Name | Role | Phone | + +------+ + | Justo Vazquez MD | PCP | | + +------+ + Encounter Details +--------+ + + + + | Date | Type | Department | Care Team | Description | +--------+ + + + + | 12/28/ | Removable Prosthodontist | [facility] Comprehensive | lAex Sanchez, | Arthralgia of lower | | 2018 | | Pain Center at | ,PhD [address] | leg, unspecified | | | | [facility] | [address] | laterality (Primary | | | | [address] | [place], [place] | Dx) | | | | Center for [facility] | [address] | | | | | and Healing, | [phone] | | | | | | | | | | | Floor [place], [place] | | | | | | [address] | | | | | | [phone] | | | +--------+ + + + [...]
--- OUTSIDE RECORDS SUMMARY | ~2020-07-04 | XMS | Encounter Summary ---
Demographics + + + | Address | [address] | | | [place] [address] | + + + | Home Phone [...] Providers + +------+ + | Care Salad Chef Name | Role | Phone | + +------+ + | Allegra Gandhi | PCP | | + +------+ + Encounter Details +--------+ + + + + | Date | Type | Department | Care Team | Description | +--------+ + + + + | 02/13/ | Hospital | Nuclear Medicine | | | | 2011 | Encounter | at [facility] [address] | | | | | | [address] | | | | | | [address], | | | | | | [place], | | | | | | [place] [address] | | | | | | [phone] | | | +--------+ + + + [...]
--- OUTSIDE RECORDS SUMMARY | ~2020-07-04 | XMS | Encounter Summary ---
Demographics + + + | Address | [address] | | | [place] [address] | + + + | Home Phone [...] Providers + +------+ + | Care Supervisor Prep Name | Role | Phone | + +------+ + | Justo Vazquez MD | PCP | | + +------+ + Encounter Details +--------+ + + + + | Date | Type | Department | Care Team | Description | +--------+ + + + + | 04/03/ | Telephone | [facility] | Alex Sanchez, | | | 2019 | | Pain Center at | ,PhD [address] | | | | | [facility] | [address] | | | | | [address] | [place], [place] | | | | | [place] for [facility] | [address] | | | | | and Healing, | [phone] | | | | | | | | | | | Floor [place], [place] | | | | | | [address] | | | | | | [phone] | | | +--------+ + + + [...]
--- OUTSIDE RECORDS SUMMARY | ~2020-07-04 | XMS | Encounter Summary ---
Demographics + + + | Address | [address] | | | [place] [address] | + + + | Home Phone [...] Team Providers + +------+ + | Care Channel Opener Outsoles Name | Role | Phone | + [...] | | 2017 | | Center at [facility] [address] | MD Melissa | Marker instructions) | | | | [address] [facility] | | | | | | for Health and | | | | | | Healing, Building 2 | | | | | | [place], [place] | | | | | | [address] | | | | | | [phone] | | | +--------+ + + + [...]
--- OUTSIDE RECORDS SUMMARY | ~2020-07-04 | XMS | Encounter Summary ---
Demographics + + + | Address | [address] | | | [place] [address] | + + + | Home Phone [...] Team Providers + +------+ + | Care Balance Staff Inspector Name | Role | Phone | + +------+ + | Justo Vazquez MD | PCP | | + +------+ + Encounter Details +--------+ + + + + | Date | Type | Department | Care Team | Description | +--------+ + + + + | 10/09/ | Telephone | [facility] | Alex Sanchez, | | | 2018 | | Pain Center at | ,PhD [address] | | | | | [facility] | [address] | | | | | [address] | [place], [place] | | | | | [place] for [facility] | [address] | | | | | and Healing, | [phone] | | | | | | | | | | | Floor [place], [place] | | | | | | [address] | | | | | | [phone] | | | +--------+ + + + [...]
--- OUTSIDE RECORDS SUMMARY | ~2020-07-04 | XMS | Encounter Summary ---
Demographics + + + | Address | [address] | | | [place] [address] | + + + | Home Phone [...] Providers + +------+ + | Care Coffee Farmer Name | Role | Phone | + +------+ + | Justo Vazquez MD | PCP | | + +------+ + Encounter Details +--------+ + + + + | Date | Type | Department | Care Team | Description | +--------+ + + + + | 06/04/ | Documentati | [facility] Comprehensive | Alex Sanchez, | | | 2019 | on | Pain Center at | ,PhD [address] | | | | | [facility] | [address] | | | | | [address] | [place], [place] | | | | | [place] for [facility] | [address] | | | | | and Healing, | [phone] | | | | | | | | | | | Floor [place], [place] | | | | | | [address] | | | | | | [phone] | | | +--------+ + + + [...]
--- OUTSIDE RECORDS SUMMARY | ~2020-07-04 | XMS | Encounter Summary ---
Demographics + + + | Address | [address] | | | [place] [address] | + + + | Home Phone [...] Team Providers + +------+ + | Care Blade Grinder Name | Role | Phone | + +------+ + | Justo Vazquez MD | PCP | | + +------+ + Encounter Details +--------+ + + + + | Date | Type | Department | Care Team | Description | +--------+ + + + + | 03/11/ | Telephone | [facility] | Zeeshan Mahoney MD | | | 2019 | | Pain Center at | [address] | | | | | [facility] | [facility], | | | | | [address] | [place] [address] | | | | | [place] for [facility] | [phone] | | | | | and Healing, | | | | | | | | | | | | [place], [place] | | | | | | [address] | | | | | | [phone] | | | +--------+ + + + [...]
--- OUTSIDE RECORDS SUMMARY | ~2020-07-04 | XMS | Encounter Summary ---
Demographics + + + | Address | [address] | | | [place] [address] | + + + | Home Phone [...] Providers + +------+ + | Care Center Administrator Name | Role | Phone | [...] + + | 10/07/ | Telephone | [facility] Comprehensive | Yosef Kenney MD | Wound infection | | 2018 | | Pain Center at | [address] | (Concern for DRG | | | | [facility] | [address] [place], | trial wound | | | | [address] | [place] [address] | infection) | | | | [facility] | [phone] | | | | | and Healing, | | | | | | | | | | | | [place], [place] | | | | | | [address] | | | | | | [phone] | | | +--------+ + + + [...]
--- OUTSIDE RECORDS SUMMARY | ~2020-07-04 | XMS | Encounter Summary ---
Demographics + + + | Address | [address] | | | [place] [address] | + + + | Home Phone [...] + +------+ + | Care Credit Card Specialist Name | Role | Phone | + +------+ + | Justo Vazquez MD | PCP | | + +------+ + Encounter Details +--------+ + + + + | Date | Type | Department | Care Team | Description | +--------+ + + + + | 06/12/ | Hospital | Radiology/Imaging | Alex Sanchez, | | | 2018 | Encounter | Lab at [facility] [address] | ,PhD [address] [facility] | | | | | [facility] for | [facility] | | | | | Health and [facility], | [place], [place] | | | | | [place] [address] [facility] | [address] | | | | | Floor [place], [place] | [phone] | | | | | [address] | | | | | | [phone] | | | +--------+ + + + [...]
--- OUTSIDE RECORDS SUMMARY | ~2020-07-04 | XMS | Encounter Summary ---
Demographics + + + | Address | [address] | | | [place] [address] | + + + | Home Phone [...] Team Providers + +------+ + | Care Laser Set Up Operator Name | Role | [...] | | | | [address] | [facility] [place] | | | | | for Health and | [address] | | | | | Healing, Building [address] | [phone] | | | | | [place], [place] | | | | | | [address] | | | | | | [phone] | | | +--------+ + + + [...]
--- OUTSIDE RECORDS SUMMARY | ~2020-07-04 | XMS | Encounter Summary ---
Demographics + + + | Address | [address] | | | [place] [address] | + + + | Home Phone [...] Team Providers + +------+ + | Care Fitting Room Maintenance Mechanic Name | Role | Phone | + +------+ + | Justo Vazquez MD | PCP | | + +------+ + Encounter Details +--------+------+ + + + | Date | Type | Department | Care Team | Description | +--------+------+ + + + | 04/23/ | Lab | Laboratory at [facility] | | Other chronic pain ; | | 2018 | | [address] | | Complex regional | | | | Center for [facility] | | pain syndrome type 1 | | | | and Healing, | | of left lower | | | | Building 2 | | extremity | | | | [place], [place] | | | | | | [address] | | | | | | [phone] | | | +--------+------+ + + + [...] LABORATORY | | Barbiturates >=200 ng/mL | [facility] | | Benzodiazepine >=200 ng/mL Cocaine | [...] | KEVIN SHAH | [address] | [place] [address] | | | SERVICES, LILLIAN | GUILLERMO [...]
--- OUTSIDE RECORDS SUMMARY | ~2020-07-04 | XMS | Encounter Summary ---
Demographics + + + | Address | [address] | | | [place] [address] | + + + | Home Phone [...] Providers + +------+ + | Care Die Caster Name | Role | Phone | [...] ogy | | Ava Torres, | [address] | | | | | Constipation | [address] | [address] | | | | | , | [address] | [place] for | | | | | unspecified | [address] | Health and | | | | | constipation | [facility] [place] | Healing, | | | | | type | [address] | Building 2 | | | | | Procedures | | [place], [place] | | | | | CONSULT TO | | [address] | | | | | GI PROCEDURE | | Phone: | | | | | UNIT: | | [phone] | | | | | ANORECTAL | | Fax: | | | | | MANOMETRY | | [phone] | | | | | GA ANAL | | | | | | [...] | ogy | | [place], | [address] | | | | | Gastroparesi | Allegra Nieto, | [address] | | | | | s | [place] [address] | Center for | | | | | | [address] | Health and | | | | | | [place], | Healing, | | | | | | [place] [address] | Building 2 | | | | | | Phone: | [place], [place] | | | | | | [phone] | [address] | | | | | | Fax: | Phone: | | | | | | [phone] | [phone] | | | | | | | Fax: | | | | | | | [phone] | +--------+--------+ + + + + Encounter Details +--------+---------+ + + + | Date | Type | Department | Care Team | Description | +--------+---------+ + + + | 08/10/ | Office | Digestive Health | Ava Carbajal | Constipation, | | 2015 | Visit | Center at [facility] [address] | MD Melissa | unspecified | | | | [facility] | | constipation type | | | | for Health and | | (Primary Dx) | | | | Healing, Building [address] | | | | | | [place], [place] | | | | | | [address] | | | | | | [phone] | | | +--------+---------+ + + + [...] in their attached note. Celia Lin MD Compensatormonitor car operator Division of Gastroenterology & Hepatology [facility] va Carbajal MD - 08/09/2016 8:40 PM PDT Gastroenterology Initial Clinic Note 08/09/2016 CHIEF COMPLAINT/IDENTIFICATION: "Gastroparesis"-Nausea emesis and abdominal pain -SECOND O GERMAINE Dr. Flores-Radha [facility] PCP: HANDY Villalpando HISTORY OF PRESENT [...] Dr. Flores in [facility] at [facility]. Patient has hx of GERD which [...] had CT abdomen w contrast done at [facility] on 10/23/15 showing large stool burden but [...] GI MDS: Dr. Nyla Garcia GI Dr[facility] LABS: -increased CRP 06/19/16: Lipase-normal (8) [...] form versus functional syndrome. Would also con education intern GERD as a cause for her nausea [...]
--- OUTSIDE RECORDS SUMMARY | ~2020-07-04 | XMS | Encounter Summary ---
Demographics + + + | Address | [address] | | | [place] [address] | + + + | Home Phone [...] Team Providers + +------+ + | Care Fixer Boarding Room Name | Role | Phone | + [...] | | | | regional | ,PhD [address] | | | | | | pain | [address] | | | | | | syndrome | [address] | | | | | | type [address] of | Rd | | | | | | left lower | [place], [place] | | | | | | extremity | [address] | | | | | | Procedures | Phone: | | | | | | PHYSICAL | [phone] | | | | | | THERAPY | Fax: | | | | | | REFERRAL | [phone] | | +--------+--------+ + + + + Encounter Details +--------+ + + + + | Date | Type | Department | Care Team | Description | +--------+ + + + + | 01/22/ | Telephone | [facility] Comprehensive | Alex Sanchez, | | | 2019 | | Pain Center at | ,PhD [address] [facility] | | | | | [facility] | [facility] | | | | | [address] | [place], [place] | | | | | [facility] | [address] | | | | | and [place], | [phone] | | | | | | | | | | | Floor [place], [place] | | | | | | [address] | | | | | | [phone] | | | +--------+ + + + [...]
--- OUTSIDE RECORDS SUMMARY | ~2020-07-04 | XMS | Encounter Summary ---
Demographics + + + | Address | [address] | | | [place] [address] | + + + | Home Phone [...] Team Providers + +------+ + | Care Relocation Associate Name | Role | Phone | [...] + + | 01/11/ | Telephone | [facility] | Alex Sanchez, | Referral To | | 2018 | | Pain Center at | ,PhD [address] | Orthopedics (discuss | | | | [facility] | [address] | ortho appointment) | | | | [address] | [place], [place] | | | | | [facility] | [address] | | | | | and Healing, | [phone] | | | | | Building | | | | | | Floor [facility] [place] | | | | | | [address] | | | | | | [phone] | | | +--------+ + + + [...]
--- OUTSIDE RECORDS SUMMARY | ~2020-07-04 | XMS | Encounter Summary ---
Demographics + + + | Address | [address] | | | [place] [address] | + + + | Home Phone [...] Team Providers + +------+ + | Care Conveyor Technician Name | Role | Phone | [...] 2017 | | Pain Center at | RISK MANAGER [address] | | | | | [facility] | [place], [place] | | | | | [address] | [address] | | | | | [facility] | [phone] | | | | | and Healing, | | | | | | Building | | | | | | [facility] [place] | | | | | | [address] | | | | | | [phone] | | | +--------+ + + + [...]
--- OUTSIDE RECORDS SUMMARY | ~2020-07-04 | XMS | Encounter Summary ---
Demographics + + + | Address | [address] | | | [place] [address] | + + + | Home Phone [...] Team Providers + +------+ + | Care Drilling Machine Operator Name | Role | Phone | + +------+ + | Allegra Gadnhi | PCP | | + +------+ + [...] | | | regional | [place] | [address] | | | | | pain | FAMILY | [address] | | | | | syndrome), | MEDICINE P | [id number] | | | | | lower limb | [address] | [place], [place] | | | | | Pain in | [place], | [address] | | | | | joint, lower | [place] [address] | Phone: | | | | | leg | Phone: | [phone] | | | | | Procedures | [phone] | Fax: | | | | | REQUEST TO | Fax: | [phone] | | | | | SURGERY | [phone] | | | | | | AUTO SERVICE INSTRUCTOR | | | +--------+--------+ + + [...] | | | 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 | FAMILY | [address] | | | | | of lower | MEDICINE P | [address] | | | | | limb | [address] | [place], [place] | | | | | | [place], | [address] | | | | | | [place] [address] | Phone: | | | | | | Phone: | [phone] | | | | | | [phone] | Fax: | | | | | | Fax: | [phone] | | | | | | [phone] | | +--------+--------+ + + + + Encounter Details +--------+---------+ + + + | Date | Type | Department | Care Team | Description | +--------+---------+ + + + | 06/06/ | Office | [facility] Comprehensive | Dale Cantu, | CRPS (complex | | 2011 | Visit | Pain Center at | MD [address] | regional pain | | | | [facility] | [facility] [address] | syndrome), lower | | | | [address] | [place], [place] | limb; Pain in joint, | | | | Center for Health | [address] | lower leg | | | | and Healing, | [phone] | | | | | | | | | | | Floor [place], [place] | | | | | | [address] | | | | | | [phone] | | | +--------+---------+ + + + [...] Dale Cantu MD - 06/06/2012 11:49 [facility] Pre-Procedure Instructions: The procedure you discussed with your doctor is called: SCS TRIAL LUMBAR [facility]. Please make sure this is scheduled with the Patternmaker Apprentice [facility]. Please bring a dairy truck driver with you. We may give you medications that make you drowsy or otherw ise unsafe to drive. If you do not have a dairy truck driver, we will not be able [...] PLEASE CONTACT THE COMPREHENSIVE PAIN CENTER AT [phone] ([phone]) FOR QUESTIONS OR IF YOU NEED TO [...] not signed. Given information. DALE CANTU MD Extrusion Machine Operator, [facility] Portable Trackman, Pain Medicine Professor, Anesthesiology & Perioperative Medicine ollHomer manriquez MD - 06/06/2012 11:17 AM PDT [facility] Comprehensive Pain Center Return Visit [...] and a pain drawing which I reviewed. SPEEDOMETER MECHANIC Brief Pain Inventory: (ten= worst possible pain [...] The Review of Systems obtained by the BLOCK HAND was reviewed. Additional Review of Systems: Bones, [...] up with Dr. Dale Cantu at the [facility] today for left foot CRPS which began [...] therapy Homer Elaine MD Pain Medicine Fellow [facility] [place] Evelia Parsons - 11:07 AM PDTCMA History: [...]
--- OUTSIDE RECORDS SUMMARY | ~2020-07-04 | XMS | Encounter Summary ---
Demographics + + + | Address | [address] | | | [place] [address] | + + + | Home Phone [...] Team Providers + +------+ + | Care Reporting Lead Name | Role | Phone | + +------+ + | Justo Vazquez MD | PCP | | + +------+ + Encounter Details +--------+ + + + + | Date | Type | Department | Care Team | Description | +--------+ + + + + | 10/20/ | Telephone | [facility] | Ilene Bright, | | | 2017 | | Pain Center at | ASL INTERPRETER [address] | | | | | [facility] | [place], [place] | | | | | [address] | [address] | | | | | [place] for [facility] | [phone] | | | | | and Healing, | | | | | | | | | | | | Floor [place], [place] | | | | | | [address] | | | | | | [phone] | | | +--------+ + + + [...]
--- OUTSIDE RECORDS SUMMARY | ~2020-07-04 | XMS | Encounter Summary ---
Demographics + + + | Address | [address] | | | [place] [address] | + + + | Home Phone [...] Team Providers + +------+ + | Care Linen Worker Name | Role | Phone | [...] Pain | | 2016 | | Center [place] [address] [address] | | | | | | [address] [facility] | | | | | | for Health and | | | | | | Healing, Building 2 | | | | | | [place], [place] | | | | | | [address] | | | | | | [phone] | | | +--------+ + + + [...]
--- OUTSIDE RECORDS SUMMARY | ~2020-07-04 | XMS | Encounter Summary ---
Demographics + + + | Address | [address] | | | [place] [address] | + + + | Home Phone [...] Team Providers + +------+ + | Care Website Designer Name | Role | Phone | [...] | | | | | unspecified | [facility] | [address] | | | | | location | Rd | [facility] | | | | | Procedures | [place], [place] | Rd [place], | | | | | CONSULT TO | [address] | [place] | | | | | PAIN | | [address] | | | | | MANAGEMENT | | Phone: | | | | | | | [phone] | | | | | | | Fax: | | | | | | | [phone] | +--------+--------+ + + + + Encounter Details +--------+---------+ + + + | Date | Type | Department | Care Team | Description | +--------+---------+ + + + | 05/08/ | Office | [facility] Comprehensive | Alex Sanchez, | Complex regional | | 2018 | Visit | Pain Center at | ,PhD [address] | pain syndrome type 1 | | | | [place] | [facility] [address] | of left lower | | | | [address] | [place], [place] | extremity (Primary | | | | Center for Health | [address] | Dx); Pain of upper | | | | and Healing, | [phone] | abdomen; Intractable | | | | | | cyclical vomiting | | | | Floor [place], [place] | | with nausea; | | | | [address] | | Disturbance in sleep | | | | [phone] | | behavior; Abdominal | | | [...] MD,P hD - 05/08/2018 10:30 AM PDT [facility] Comprehensive Pain Center Return Visit Date: 05/08/2018 Chief Complaint Patient presents with Ankle pain Left Foot pain Left History of Present Illness: Tracie Farah is a 27 year old female, whose last appoi ntment at the [facility] was April 19, 2018, [...] time that 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 Goes to [employer] with a light load. Has been working at [employer], can' t work on crAgribots. Has roommates. Allergies Allergen Reactions Morphine Anaphylaxis [...] by physician. Concentration is 150mg/mL. Compounded by [employer] ( [phone]) KETOROLAC IM Inject into the muscle (IM). [...] GRAM SOLUTION Take as directed by [facility] Digestive Health- 2 gallon bowel [...] and summary of old medical records (source: [employer]), as summarized in the body of the [...] by Sonia Key. Alex Sanchez MD PhD Printing Screen Assembler Anesthesiology and Pain Management [facility] documented in this encounter Plan of Treatment [...]
--- OUTSIDE RECORDS SUMMARY | ~2020-07-04 | XMS | Encounter Summary ---
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 | [address] | | | | | of lower | MEDICINE P | [address] | | | | | limb | [address] | [place], [place] | | | | | | [place], | [address] | | | | | | [place] [address] | Phone: | | | | | | Phone: | [phone] | | | | | | [phone] | Fax: | | | | | | Fax: | [phone] | | | | | | [phone] | | +--------+--------+ + + + + Encounter Details +--------+---------+ + + + | Date | Type | Department | Care Team | Description | +--------+---------+ + + + | 03/17/ | Office | [facility] Comprehensive | Dale Cantu, | CRPS (complex | | 2011 | Visit | Pain Center at | [address] | regional pain | | | | [place] | [address] [address] | syndrome), lower | | | | [address] | [place], [place] | limb; Adjustment | | | | [place] for [facility] | [address] | reaction; Muscle | | | | and Healing, | [phone] | pain; Gait | | | | [facility] | | disturbance | | | | Floor [place], [place] | | | | | | [address] | | | | | | [phone] | | | +--------+---------+ + + + [...] Pain: After Your Visit", log into your MyRoll nt at [email or web address]. You can enter G828 in the [employer] Library" search box. Not on Visual Unityt? Review the MyChart section of your After Visit Summary for directions on liz rea to sign up. 3730-4950 [employer]That[employer]. Care instructions adapted under license by [facility] & [facility]. This care instruction is for use with your licensed healthcar e professional. If you have questions about a medical condition or this instruction, always ask your healthcare professional. [employer] disclaims any warranty or liabili ty for your use of this information. Content Version: 9.2.592987; Last Revised: April 29, 2011 Nortriptyline for [...] Pain: After Your Visit", log into your MyRoll nt at [email or web address]. You can enter G828 in the BuyPlayWin" search box. Not on Jajah? Review the Luxul Technologyhart section of your After Visit Summary for directions on ho w to sign up. 4680-0710 [employer]idThatProject. Care instructions adapted under license by [facility] & [employer]. This care instruction is for use with your licensed healthcar e professional. If you have questions about a medical condition or this instruction, always ask your healthcare professional. [employer] disclaims any warranty or liabili ty for your use of this information. Content Version: 9.2.986902; Last Revised: April 29, 2011 documented in [...] documented in our notes. DALE CANTU MD Endbander, [facility] Instructional Resource Teacher, Pain Medicine Professor, Anesthesiology & Perioperative Medicine NAMollMarquis manriquez MD - 03/17/2012 3:42 PM PDT [facility] Return Visit with Dr. [...] her pain. She continues to take 6-8 Tamworth per day and 600 mg of ibuprofen [...] The Review of Systems obtained by the [facility] was reviewed. Additional Review of Systems: [...] you require any medication refills today? no CREW LEADER ROS: 1. Bones, Joints, and Muscles: cramps [...]
--- OUTSIDE RECORDS SUMMARY | ~2020-07-04 | XMS | Encounter Summary ---
Demographics + + + | Address | [address] | | | [place] [address] | + + + | Home Phone [...] Providers + +------+ + | Care Collections Attorney Name | Role | Phone | + +------+ + | Justo Vazquez MD | PCP | | + +------+ + Encounter Details +--------+ + + + + | Date | Type | Department | Care Team | Description | +--------+ + + + + | 01/26/ | Document-Sc | Health Information | Unknown . | | | 2017 | anned | Services [phone] | | | | | | [address] | | | | | | Mailcode: OP17A | | | | | | [facility] | | | | | | [place], [place] | | | | | | [address] | | | | | | [phone] | | | +--------+ + + + [...]
--- OUTSIDE RECORDS SUMMARY | ~2020-07-04 | XMS | Encounter Summary ---
Demographics + + + | Address | [address] | | | [place] [address] | + + + | Home Phone [...] | | 2011 | Records | [address] [facility] | [phone] | | | | | [address] | | | | | | [place], [place] | | | | | | [address] | | | +--------+ + + + [...]
--- OUTSIDE RECORDS SUMMARY | ~2020-07-04 | XMS | Encounter Summary ---
Demographics + + + | Address | [address] | | | [place] [address] | + + + | Home Phone [...] Providers + +------+ + | Care Global Transportation Manager Name | Role | Phone | [...] | [facility] | Aleta Rebollar MD [address] | Nausea | | 2018 | | Pain Center at | [address] | | | | | [facility] | [place], [place] | | | | | [address] | [address] | | | | | [place] for Health | [phone] | | | | | and Healing, | | | | | | Building | | | | | | [place], [place] | | | | | | [address] | | | | | | [phone] | | | +--------+ + + + [...]
--- OUTSIDE RECORDS SUMMARY | ~2020-07-04 | XMS | Encounter Summary ---
Demographics + + + | Address | [address] | | | [place] [address] | + + + | Home Phone [...] Team Providers + +------+ + | Care Property Assistant Name | Role | Phone | + +------+ + | Justo Vazquez MD | PCP | | + +------+ + Encounter Details +--------+ + + + + | Date | Type | Department | Care Team | Description | +--------+ + + + + | 04/23/ | Pharmacy | [facility] | | | | 2019 | Visit | & [facility]acy | | | | | | [address] | | | | | | Mailcode: [place] | | | | | | [facility] and | | | | | | Healing, Building [address] | | | | | | [place], [place] | | | | | | [address] | | | | | | [phone] | | | +--------+ + + + [...]
--- OUTSIDE RECORDS SUMMARY | ~2020-07-04 | XMS | Encounter Summary ---
Demographics + + + | Address | [address] | | | [place] [address] | + + + | Home Phone [...] Providers + +------+ + | Care Project Management Intern Name | Role | Phone | [...] | | 2017 | | Center at [facility] [address] | | Review | | | | [address] [facility] | | | | | | for Health and | | | | | | [facility] [address] | | | | | | [place], [place] | | | | | | [address] | | | | | | [phone] | | | +--------+ + + + [...]
--- OUTSIDE RECORDS SUMMARY | ~2020-07-04 | XMS | Encounter Summary ---
Demographics + + + | Address | [address] | | | [place] [address] | + + + | Home Phone [...] Providers + +------+ + | Care Hot Air Furnace Installer Repairer Name | Role | Phone | + +------+ + | Justo Vazquez MD | PCP | | + +------+ + Encounter Details +--------+ + + + + | Date | Type | Department | Care Team | Description | +--------+ + + + + | 03/12/ | Loom Changer | [facility] | Alex Sanchez, | Complex regional | | 2019 | | Pain Center at | ,PhD [address] [facility] | pain syndrome type 1 | | | | [facility] | [address] | of left lower | | | | [address] | [place], [place] | extremity; S/P | | | | Center for Health | [address] | insertion of spinal | | | | and Healing, | [phone] | cord stimulator | | | | | | | | | | Floor [place], [place] | | | | | | [address] | | | | | | [phone] | | | +--------+ + + + [...]
--- OUTSIDE RECORDS SUMMARY | ~2020-07-04 | XMS | Encounter Summary ---
Demographics + + + | Address | [address] | | | [place] [address] | + + + | Home Phone [...] + +------+ + | Care Director Of Retail Merchandising Name | Role | Phone | + [...] | | 2017 | | Center at [facility] [address] | | | | | | [facility] | | | | | | for Health and | | | | | | Healing, Building [address] | | | | | | [place], [place] | | | | | | [address] | | | | | | [phone] | | | +--------+--------+ + + + [...]
--- OUTSIDE RECORDS SUMMARY | ~2020-07-04 | XMS | Encounter Summary ---
Demographics + + + | Address | [address] | | | [place] [address] | + + + | Home Phone [...] Team Providers + +------+ + | Care Cardiac Tech Name | Role | Phone | + +------+ + | Justo Vazquez MD | PCP | | + +------+ + Encounter Details +--------+ + + + + | Date | Type | Department | Care Team | Description | +--------+ + + + + | 05/18/ | Telephone | [facility] | Alex Sanchez, | | | 2019 | | Pain Center at | ,PhD [address] | | | | | [facility] | [address] | | | | | [address] | [place], [place] | | | | | [place] [facility] | [address] | | | | | and Healing, | [phone] | | | | | | | | | | | Floor [place], [place] | | | | | | [address] | | | | | | [phone] | | | +--------+ + + + [...]
--- OUTSIDE RECORDS SUMMARY | ~2020-07-04 | XMS | Encounter Summary ---
Demographics + + + | Address | [address] | | | [place] [address] | + + + | Home Phone [...] Providers + +------+ + | Care Supervisor Rough End Name | Role | Phone | + [...] | | Pain | Complex | Ilene, POULTRY OFFAL ICER | Catriona M, | | | | Management | regional | [address] | PSY D [address] | | | | | pain | [address] | [address] | | | | | syndrome | [place], [place] | [place], [place] | | | | | type 1 of | [address] | [address] Phone: | | | | | left lower | Phone: | [phone] | | | | | extremity | [phone] | Fax: | | | | | Intractable | Fax: | [phone] | | | | | cyclical | [phone] | | | | | | vomiting [...] 10/11/ | Office | Pain Center at [facility] | Jamel Bravo, | 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 The patient was referred for pain [...] by physician. Concentration is 150mg/mL. Compounded by [employer] ([phone]), Disp: , Rfl: 5 lamoTRIgine 200 mg [...] oral recon soln, Take as directed by [facility]- 2 gallon bowel prep, Disp: 8000 mL, [...] e. 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 For enjoyment the patient watches TV, reads, [...] time I spent was approximately 50 minutes tdfu-zf-etwr with the patient and approxima tely 1 hour 40 minutes of xsr-ehrj-db-face testing, interpreting and synthesizing results. Jamel Bravo, PhD PAIN CENTER AT [facility] [address]TH [address] [facility] Mail Code: [id number] [place] [address] documented in this en counter [...]
--- OUTSIDE RECORDS SUMMARY | ~2020-07-04 | XMS | Encounter Summary ---
Demographics + + + | Address | [address] | | | [place] [address] [...] Team Providers + +------+ + | Care Keymodule Assembly Supervisor Name | Role | Phone [...] Closed | | Orthopedics | Diagnoses | [place], | [facility] | | | | | Adjustment | Ranjeet Odom MD | Ch[address]1 [address] | | | | | disorder, | [address] | [address] | | | | | unspecified | Ave | Center for | | | | | type | [facility] [place] | Health and | | | | | Procedures | [address] | Healing, | | | | | CONSULT TO | Phone: | Building 1, | | | | | BEHAVIORAL | [phone] | 12th Floor | | | | | HEALTH/PSYCH | Fax: | [place], [place] | | | | | CHRISTINA - | [phone] | [address] | | | | | ADULT | | Phone: | | | | | | | [phone] | | | | | | | Fax: | | | | | | | [phone] | +--------+--------+ + + + + Reason [...] | | syndrome | [address] | [place], [place] | | | | | type 1 of | Rd | [address] | | | | | left lower | [place], [place] | Phone: | | | | | extremity | [address] | [phone] | | | | | Procedures | Phone: | Fax: | | | | | CONSULT TO | [phone] | [phone] | | | | | ORTHOPEDICS | Fax: | | | | | | AND | [phone] | | | | | | REHABILITATI [...] | 2018 | Visit | Faculty at [facility] | [address] | (Primary Dx); Left | | | | for Health and | [place], [place] | ankle pain, | | | | Healing [address] | [address] | unspecified | | | | [facility] for | [phone] | chronicity; | | | | Health and Healing, | | Adjustment disorder, | | | | Building | | unspecified type | | | | Floor [place], [place] | | | | | | [address] | | | | | | [phone] | | | +--------+---------+ + + + [...] Hemroidectomy Trial spinal cord stimulator leads 08/02/2012 [facility], Surgeon: Janak Riojas MD Cholecystectomy [...] by physician. Concentration is 150mg/mL. Compounded by [employer] ([phone]) levonorgestrel (MIRENA) 20 mcg/24 hr Intrauterine IUD [...] oral recon soln Take as directed by [facility]- 2 gallon bowel prep polyethylene glycol [...] [facility] and personally formulated the plan [...] become. f/u open ended Ranjeet Amanda M.D. Lead Manufacturing Engineering Tech Foot and Ankle Surgery Department of Orthopedics & Rehabilitation [facility] [phone] >60 mins face to face consultation was [...]
--- OUTSIDE RECORDS SUMMARY | ~2020-07-04 | XMS | Encounter Summary ---
Demographics + + + | Address | [address] | | | [place] [address] | + + + | Home Phone [...] Team Providers + +------+ + | Care Circulation Man Name | Role | Phone | [...] | CRPS | Dale Martinez MD | [facility] [address] | | | | | (complex | [address] | Pavilion | | | | | regional | [address] | [address] | | | | | pain | Mailstop | [address], | | | | | syndrome), | [id number] | Basement | | | | | lower limb | [place], [place] | [place], [place] | | | | | Procedures | [address] | [address] | | | | | [place] BONE &/[place] | Phone: | Phone: | | | | | JOINT | [phone] | [phone] | | | | | IMAGING 3 | Fax: | Fax: | | | | | PHASE | [phone] | [phone] | +--------+--------+ + + + + Consult [...] | | | regional | [place] | [address] | | | | | pain | FAMILY | [address]stop | | | | | syndrome), | MEDICINE P | [address] | | | | | lower limb | [address] | [place], [place] | | | | | Gait | [place], | [address] | | | | | disturbance | [place] [address] | Phone: | | | | | Muscle pain | Phone: | [phone] | | | | | Procedures | [phone] | Fax: | | | | | REQUEST TO | Fax: | [phone] | | | | | SURGERY | [phone] | | | | | | CLINICAL OUTCOMES MANAGER | | | +--------+--------+ + + + + Consultation (Routine) +--------+--------+ + + + + | Status | Reason | Specialty | Diagnoses / | Referred By | Referred To | | | | | Procedures | Contact | Contact | +--------+--------+ + + + + | Closed | | Psychology / | Diagnoses | Beul[place], | Job Press Feeder Psych | | | | Pain | CRPS | Dale Martinez MD | Chh1 [address] | | | | Management | (complex | [address] | | | | | regional | [address] | Center for | | | | | pain | Mailstop | Health and | | | | | syndrome), | [address] | Healing, | | | | | lower limb | [place], [place] | Building | | | | | Gait | [address] | 1,15th Floor | | | | | disturbance | Phone: | [place], [place] | | | | | Muscle pain | [phone] | [address] | | | | | Procedures | Fax: | Phone: | | | | | CONSULT TO | [phone] | [phone] | | | | | PAIN CENTER | | Fax: | | | | | | | [phone] | +--------+--------+ + + + + Physical Therapy (Routine) +--------+--------+ + + + + | Status | Reason | Specialty | Diagnoses / | Referred By | Referred To | | | | | Procedures | Contact | Contact | +--------+--------+ + + + + | Closed | | Physical | Diagnoses | [place]ul[place], | Eud Pt Job Press Feeder | | | | Therapy | CRPS | Dale Martinez MD | Chh1 [address] | | | | | (complex | [address] | | | | | regional | [address] | Mailcode: | | | | | pain | Mailstop | [facility] | | | | | syndrome), | [id number] | for Health | | | | | lower limb | [place], [place] | and Healing, | | | | | Gait | [address] | [facility] 1 | | | | | disturbance | Phone: | [place], [place] | | | | | Muscle pain | [phone] | [address] | | | | | Procedures | Fax: | Phone: | | | | | PHYSICAL | [phone] | [phone] | | | | | THERAPY | [...] | | | 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 | FAMILY | [address]stop | | | | | of lower | MEDICINE P | [address] | | | | | limb | [address] | [place], [place] | | | | | | [place], | [address] | | | | | | [place] [address] | Phone: | | | | | | Phone: | [phone] | | | | | | [phone] | Fax: | | | | | | Fax: | [phone] | | | | | | [phone] | | +--------+--------+ + + + + Encounter Details +--------+---------+ + + + | Date | Type | Department | Care Team | Description | +--------+---------+ + + + | 02/13/ | Office | [facility] | Dale Cantu, | CRPS (complex | | 2011 | Visit | Pain Center at | MD [address] | regional pain | | | | [facility] | [facility] 546984 | syndrome), lower | | | | [address] | [place], [place] | limb; Gait | | | | Center for [facility] | [address] | disturbance; Muscle | | | | and Healing, | [phone] | pain; Adjustment | | | | | | reaction | | | | Floor [place], [place] | | | | | | [address] | | | | | | [phone] | | | +--------+---------+ + + + [...] evaluation: Records from CRPS program at [facility]. 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 2. [...] by the psychologists here at the [facility]. 2.2 Physical therapy can reduce pain and improve functional status. Suggest Guillermo Sanon . 3. Medication suggestions: 3.1 Continue titrating up duloxetine. 3.2 As for any patient being managed with chronic opioids, we do recommend that the patien t have a signed [facility] Material Risk Notice, agree to whatever [...] sintia sure this is scheduled with the Pizzamaker. Please bring a sprinkler truck driver with you. We may give you medications that make you drowsy or otherw ise unsafe to drive. If you do not have a sprinkler truck driver, we will not be able to do your procedure. DO NOT EAT ANYTHING AFTER MIDNIGHT If your appointment is after 1 PM , you may have a very light, low fat breakfast, such as h fdc a piece of dry toast or a [...] PLEASE CONTACT THE COMPREHENSIVE PAIN CENTER AT [phone] ([phone]) FOR QUESTIONS OR IF YOU NEED TO CANCEL YOUR APPOINTMENT. [facility] Comprehensive Pain Center documented in this encounter [...] pain management consultation by BJORN Mi [facility] [facility] [address] [place] [address] Reason for visit Chief Complaint Patient presents with Pain in left leg Ankle pain left History of Present Illness: Tracie Farah is a 21 year old female with pain locate d in left lower extremity. She has been diagnosed with CRPS. She is referred to [facility] for consultation regarding this ongoing pain problem with the following spec [facility] issues to be addressed: Other options for [...] by several orthopedic surgeons, Dr. Charles in [place], physical therapy, Occupational Therapy. Diagnostic and radiologic [...] pain relief. Admitted to the inpatient [facility] program for 1 month in the [...] entin, pregabalin, topiramate, tramadol, multiple opioids. Current Etoile about 6-8/day. St arting duloxetine, at 30 mg/day. She feels that the most effective medication treatments ar e or have been opioids. As a result of her pain, Ms. Farah notes multiple changes in her life, including: "I don 't have a life, can't work, can't go to school." Poor mood, sleep, activity. Using crutche s recently because of pain flare. 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 Goes to [employer] college with a light load. Has been working at [employer], can' t work on [employer]. Has roommates. Current Medication List 02/14/12 9:50 [...] Anaphylaxis As part of today's visit the [facility] new patient questionnaire was review [...] rambo, the pediatric inpatient pain program at [facility] [...] CRPS patients (Loretta Rousseau, et al. Katrina Environmental Engineering Manager Med. 2010;152: 152-158). Other treatment options for the future: Spinal cord stimulation (SCS) has good evidence f or providing skilled nursing relief in CRPS (Complex Regional Pain Syndrome) [...] [facility] evaluation: [facility]. Suggest three ph ase bone [...] at the [facility]. ORDER PLACED 2.2 Physical therapy can reduce pain and improve functional status. Suggest Guillermo Sanon . ORDER PLACED 3. Medication suggestions: 3.1 Continue titrating up duloxetine. 3.2 As for any patient being managed with chronic opioids, we do recommend that the patien t have a signed [facility] Material Risk Notice, agree to whatever [...] her PCP, BJORN Villanueva. DALE CANTU MD Manager Ccu, Comprehensive [facility] Claim Attorney, Pain Medicine Professor, Anesthesiology & Perioperative Medicine [...] | + +---------+ + + | [facility] DEPARTMENT OF | | | | | [...]
--- OUTSIDE RECORDS SUMMARY | ~2020-07-04 | XMS | Encounter Summary ---
Demographics + + + | Address | [address] | | | [place] [address] | + + + | Home Phone [...] Providers + +------+ + | Care Residential Sales Rep Name | Role | Phone [...] + + | 03// | Telephone | [facility] Comprehensive | Alex Sanchez, | Medication (clarify | | 2018 | | Pain Center at | ,PhD [address] | sig on Ketamine) | | | | [facility] | [facility] | | | | | [address] | [place], [place] | | | | | [facility] | [address] | | | | | and Healing, | [phone] | | | | | Building | | | | | | Floor [place], [place] | | | | | | [address] | | | | | | [phone] | | | +--------+ + + + [...]
--- OUTSIDE RECORDS SUMMARY | ~2020-07-04 | XMS | Encounter Summary ---
Demographics + + + | Address | [address] | | | [place] [address] | + + + | Home Phone [...] Providers + +------+ + | Care Cutter Head Sharpener Name | Role | Phone | + +------+ + | Justo Vazquez MD | PCP | | + +------+ + Encounter Details +--------+ + + + + | Date | Type | Department | Care Team | Description | +--------+ + + + + | 09/20/ | Telephone | [facility] | Ilene Bright, | | | 2017 | | Pain Center at | DAIRY CHEMIST [address] | | | | | [facility] | [place], [place] | | | | | [address] | [address] | | | | | [place] for [facility] | [phone] | | | | | and Healing, | | | | | | | | | | | | Floor [place], [place] | | | | | | [address] | | | | | | [phone] | | | +--------+ + + + [...]
--- OUTSIDE RECORDS SUMMARY | ~2020-07-04 | XMS | Encounter Summary ---
Demographics + + + | Address | [address] | | | [place] [address] | + + + | Home Phone [...] Team Providers + +------+ + | Care Net Mender Name | Role | Phone | + [...] | | Pain Center at | ,PhD [address] | denied) | | | | [facility] | [facility] | | | | | [address] | [place], [place] | | | | | [facility] | [address] | | | | | and [place], | [phone] | | | | | [facility] | | | | | | Floor [place], [place] | | | | | | [address] | | | | | | [phone] | | | +--------+ + + + [...]
--- OUTSIDE RECORDS SUMMARY | ~2020-07-04 | XMS | Encounter Summary ---
Demographics + + + | Address | [address] | | | [place] [address] | + + + | Home Phone [...] Providers + +------+ + | Care Pipe Bowls Paint Trimmer Name | Role | Phone | + +------+ + | Justo Vazquez MD | PCP | | + +------+ + Encounter Details +--------+ + + + + | Date | Type | Department | Care Team | Description | +--------+ + + + + | 12/28/ | Telephone | [facility] | Ilene Bright, | | | 2019 | | Pain Center at | GOLF COACH [address] | | | | | [facility] | [place], [place] | | | | | [address] | [address] | | | | | [place] for [facility] | [phone] | | | | | and Healing, | | | | | | | | | | | | Floor [place], [place] | | | | | | [address] | | | | | | [phone] | | | +--------+ + + + [...]
--- OUTSIDE RECORDS SUMMARY | ~2020-07-04 | XMS | Encounter Summary ---
Demographics + + + | Address | [address] | | | [place] [address] | + + + | Home Phone [...] Providers + +------+ + | Care Insurance Clerk Name | Role | Phone | [...] | Pain Center at | [address] | | | | | [facility] | [address] [id number] | | | | | [address] | [place], [place] | | | | | Center for Health | [address] | | | | | and Healing, | [phone] | | | | | [facility] | | | | | | Floor [place], [place] | | | | | | [address] | | | | | | [phone] | | | +--------+ + + + [...]
--- OUTSIDE RECORDS SUMMARY | ~2020-07-04 | XMS | Encounter Summary ---
Demographics + + + | Address | [address] | | | [place] [address] | + + + | Home Phone [...] Team Providers + +------+ + | Care Facilities Plant Engineer Name | Role | Phone | + +------+ + | Justo Vazquez MD | PCP | | + +------+ + Encounter Details +--------+ + + + + | Date | Type | Department | Care Team | Description | +--------+ + + + + | 07/28/ | Documentati | [facility] Comprehensive | Ilene Bright, | | | 2017 | on | Pain Center at | AUTO SERVICE WRITER [address] | | | | | [facility] | [facility] [place] | | | | | [address] | [address] | | | | | [place] for [facility] | [phone] | | | | | and Healing, | | | | | | | | | | | | Floor [place], [place] | | | | | | [address] | | | | | | [phone] | | | +--------+ + + + [...]
--- OUTSIDE RECORDS SUMMARY | ~2020-07-04 | XMS | Encounter Summary ---
Demographics + + + | Address | [address] | | | [place] [address] | + + + | Home Phone [...] Team Providers + +------+ + | Care Millinery Blocker Name | Role | Phone | [...] | | | regional | [place] | [address] | | | | | pain | FAMILY | [address] | | | | | syndrome), | MEDICINE P | [id number] | | | | | lower limb | [address] | [place], [place] | | | | | Gait | [place], | [address] | | | | | disturbance | [place] [address] | Phone: | | | | | Muscle pain | Phone: | [phone] | | | | | Procedures | [phone] | Fax: | | | | | REQUEST TO | Fax: | [phone] | | | | | SURGERY | [phone] | | | | | | RN FIELD | | | +--------+--------+ + + + + Encounter Details +--------+ + + + + | Date | Type | Department | Care Team | Description | +--------+ + + + + | 03/01/ | Procedure | Pain Center at [facility] | Dale Cantu, | Foot pain (left); | | 2011 | | [address] | [address] | Procedure | | | | Center [facility] | [id number] | | | | | and Healing, | [place], [place] | | | | | [facility] | [address] | | | | | Floor [place], [place] | [phone] | | | | | [address] | | | | | | [phone] | | | +--------+ + + + [...] t be different from the original. [facility] Patient Instructions - Post Interventional Procedure Date: 03/01/2012 Name: Tracie Farah Date of : 1990 Procedure Performed: LUMBAR SYMPATHETIC BLOCK. Procedure Provider: Dale Cantu If you have any problems you believe are associated with your procedure tonight, Please call the Hospital Striper, and ask for the Pain Management Consu ltant. If you have problems or questions between 9:00 am and 4:00 pm, Please call the [facility] Nurse Triage Line, . If you [...] to the larry ent. LAKEISHA HERRING MD [facility] documented in this encounter Progress Notes Dale Cantu MD - 03/01/2012 2:21 PM PDTI was present for the entire procedure (lumbar sympathetic block) and all bocanegra elements of this visit. I reviewed the documentation of the other INCOME TAX RETURN PREPARER providers and concur with Dr. Herring's findings. [...] benefit from multidisciplinary treatment. DALE CANTU MD Typing Element Machine Operator, [facility] White Kid Buffer, Pain Medicine Professor, Anesthesiology & Perioperative Medicine NAEiDiana scott RN - 03/01/2012 1:35 PM PDT PRE-SEDATION: Date: March 01, 2012 Tracie Farah [id number] 1990 ALLERGIES: Morphine Previous reaction to Sedation/Analgesia: MEDICATIONS: Current Outpatient Prescriptions Medication DULoxetine (CYMBALTA) 30 mg Oral Capsule, Delayed Release(E.C.) HYDROcodone-acetaminophen (NORCO) 10-325 mg Oral Tablet levonorgestrel (MIRENA) 20 mcg/24 hr Intrauterine IUD LORazepam 1 mg Oral Tablet promethazine 25 mg Oral Tablet Meets NPO Guidelines. IV ACCESS: IV in Place IV Start Time 20010, 22g, DRH BASELINE VS: See Sedation Flow Sheet. Tracie Farah [id number] 1990, presents to clinic for: Procedure: Lumbar [...] ml. 1344: Procedure complete. Pt returned to [place] 1 per man in stable condiotion. IV [...] OPERATIVE NOTE Date: March 01, 2012 Location: [facility] Procedure Room Tracie Donaldson [facility] [id number] :1990, presents to clinic for: PROCEDURE: Lumbar sympathetic block LEVEL/LATERALITY: left L3 PRE-OPERATIVE DIAGNOSIS: 355.71B CRPS (complex regional pain syndrome), lower limb 719.46 Pain in joint, lower leg POST-OPERATIVE DIAGNOSIS: 355.71B CRPS (complex regional pain syndrome), lower limb 719.46 Pain in joint, lower leg ATTENDING PHYSICIAN: Dale Cantu CAN CRIMPER: Fellow Lakeisha Herring MD ANESTHESIA: sedation delivered by Diana Fry RN. Sedation is supervised by aDle Cantu MD FINDINGS: Appropriate local spread of [...] sedation. Ms. Farah was escorted to the [facility] Procedure Ro om, where she was [...] compromise. Ms. Farah was transported to the [facility] Pain Center post-procedure recovery area [...] block. Images were saved, and sent to [employer]. Ms. Farah will have her next appointment [...] + +--------+ + + + | VT INJECT NERV | Routin | 03/01/2012 | CRPS (complex | | | BLCK,PARAVERT | e | 2:20 PM | regional pain | | | SYMPATH | | PDT | syndrome), lower | | | | | | limb Pain in joint, | | | | | | lower leg | | + +--------+ + + + | VT LOCM 100-199 | Routin | 03/01/2012 | CRPS (complex | | | MG/MLICON | e | 1:53 PM | regional pain | | | | | PDT | syndrome), lower | | | | | | limb Pain in joint, | | | | | | lower leg | | + +--------+ + + + | VT INJ BUPIVACAINE | Routin | 03/01/2012 | [...]
--- OUTSIDE RECORDS SUMMARY | ~2020-07-04 | XMS | Encounter Summary ---
Demographics + + + | Address | [address] | | | [place] [address] | + + + | Home Phone [...] Team Providers + +------+ + | Care Typing Pool Supervisor Name | Role | Phone | [...] | | | | regional | ,PhD [address] | | | | | | pain | [address] | | | | | | syndrome | [address] | | | | | | type [address] of | Rd | | | | | | left lower | [place], [place] | | | | | | extremity | [address] | | | | | | Procedures | Phone: | | | | | | CONSULT TO | [phone] | | | | | | ORTHOPEDICS | Fax: | | | | | | AND | [phone] | | | | | | REHABILITATI | | | | | | | ON | | | +--------+--------+ + + + + Encounter Details +--------+ + + + + | Date | Type | Department | Care Team | Description | +--------+ + + + + | 06/08/ | Financial Services Consultant | [facility] | Alex Sanchez, | Complex regional | | 2019 | | Pain Center at | ,PhD [address] | pain syndrome type 1 | | | | [facility] | [address] | of left lower | | | | [address] | [place], [place] | extremity (Primary | | | | Center for [facility] | [address] | Dx) | | | | and Healing, | [phone] | | | | | | | | | | | Floor [place], [place] | | | | | | [address] | | | | | | [phone] | | | +--------+ + + + [...]
--- OUTSIDE RECORDS SUMMARY | ~2020-07-04 | XMS | Encounter Summary ---
Demographics + + + | Address | [address] | | | [place] [address] | + + + | Home Phone [...] Team Providers + +------+ + | Care Police Booking Officer Name | Role | Phone | [...] Rd | | | | | | [place], [place] | | | | | | [address] | | | +--------+ + + + [...]
--- OUTSIDE RECORDS SUMMARY | ~2020-07-04 | XMS | Encounter Summary ---
Demographics + + + | Address | [address] | | | [place] [address] | + + + | Home Phone [...] Providers + +------+ + | Care Electronic Gaming Device Supervisor Name | Role | Phone | [...]
--- OUTSIDE RECORDS SUMMARY | ~2020-07-04 | XMS | Encounter Summary ---
Demographics + + + | Address | [address] | | | [place] [address] | + + + | Home Phone [...] Team Providers + +------+ + | Care Cream Tester Name | Role | Phone | [...] | | syndrome | [address] | [facility] | | | | | type 1 of | [address] | Rd [place], | | | | | left lower | [place], [place] | [place] | | | | | extremity | [address] | [address] | | | | | Procedures | Phone: | Phone: | | | | | REQUEST TO | [phone] | [phone] | | | | | SURGERY | Fax: | Fax: | | | | | SKIN PASS OPERATOR | [phone] | [phone] | +--------+---------+ + + + + Encounter Details +--------+ + + + + | Date | Type | Department | Care Team | Description | +--------+ + + + + | 12/ | Procedure | Pain Center at [facility] | Alex Sanchez, | Foot pain; Knee | | 2018 | | [address] | ,PhD [address] | pain; Procedure | | | | [facility] | [facility] | | | | | and Healing, | [place], [place] | | | | | | [address] | | | | | Floor [place] [employer], [place] | [phone] | | | | | [address] | | | | | | [phone] | | | +--------+ + + + [...] Sonia Key - 09/25/2018 1:00 PM PST [facility] Patient Instructions - Post Interventional Procedure Date: 09/25/2018 Name: Tracie Farah Date of : 1990 Procedure Performed: SCS DRG TRIAL LUMBAR [facility]. Procedure Provider: Alex Sanchez MD,PhD If you have any problems you believe are associated with your procedure tonight, Please call the Hospital Relocation Counselor, and ask for the Pain Management Consu ltant. If you have problems or questions between 9:00 am and 4:00 pm, Please call the [facility] Nurse Triage Line, . If you [...] symptoms, dressing, SCS function, or chills. During WELDING MACHINE OPERATOR ULTRASONIC open ho urs, call the [facility] ([phone]), after hours call the open hearth furnace operator helper at [facility] ([phone]) and ask for the Adult Pain Service space and missile operations spacelift. Identify yourself as a Comprehensive Pain Center [...] to the pat ient. Aleta Rebollar MD [facility] Ychzwulpvzvctq signed by Sonia Key at 09/25/2018 3:07 PM PST documented in this encounter Progress Notes Alex Sanchez MD,PhD - 09/25/2018 1:00 PM PSTI was present for the entire procedure ( DRG SCS trial) and all bocanegra elements of this visit. I reviewed the documentation of the othe r [facility] providers and concur with Dr. Rebollar's findings. I edited his note. Alex Sanchez MD,PhD Floor Finisher Anesthesiology and Pain Management [facility] [place] onacZain bonner RN - 09/25/2018 1:00 PM [...] by physician. Concentration is 150mg/mL. Compounded by [employer] ( [phone]) KETOROLAC IM Inject into the muscle (IM). [...] Take as directed by [facility] Digestive [facility]- 2 gallon bowel prep POLYETHYLENE [...] PRE-SEDATION: Date: September 25, 2018 Tracie Farah [id number] 1990 ALLERGIES: Morphine Previous reaction to Sedation/Analgesia: [...] NOTES: Date: September 25, 2018 Tracie Donaldson [facility] [id number] 1990 ALLERGIES: Morphine Previous reaction to Sedation/Analgesia: [...] VS: See Sedation Flow Sheet. Tracie Donaldson [facility] [id number] 1990, presents to clinic for: Procedure: bilateral [...] OPERATIVE NOTE Date: September 25, 2018 Location: [facility] Procedure Room Tracie Donaldson [facility] [id number] :1990, presents to clinic for: PROCEDURE: DRG Spinal Cord Stimuation Trial with St. StatSheet system LEVEL/LATERALITY: left L4, L5 PRE-OPERATIVE DIAGNOSIS: G90.522 Complex regional pain syndrome type 1 of left lower extremity POST-OPERATIVE DIAGNOSIS: G90.522 Complex regional pain syndrome type 1 of left lower extremity ATTENDING PHYSICIAN: Alex Sanchez MD,PhD STRATEGIC COMMUNICATIONS SPECIALIST: Fellow Aleta Rebollar ANESTHESIA: Sedation delivered by [...] sedation. Ms. Farah was escorted to the [facility] Procedure R oom, where she [...] patient. Ms. Farah was transported to the [facility] post-procedure recovery area where she made an uneventful recovery. Programming was performed in the PACU with aid of the device advertising account representative and Ms. Susie faust was sent home with a few programs . This was a unilateral procedure. Alex Sanchez MD,PhD was present for the entire procedure. Images were saved, and sent to [employer]. Ms. Farah was transported to the [facility] post-procedure recovery area. She had an uneventful recovery. Before the procedure, Ms. Farah's pain was 7/10. After the procedure Ms. Farah's pain was 7/10. I, Sonia Key, am functioning as a scribe for Aleta Rebollar MD. I have reviewed and verified the above scribed note of my visit with this patient as record ed by Sonia Key. Aleta Rebollar MD PAIN CENTER AT [facility] 15TH FLOOR [address] [facility] Mail Code: [address] [address] documented in t his encounter Plan of Treatment Not on filedocumented as of this encounter Procedures + +--------+ + + + | Procedure Name | Priori | Date/Time | Associated Diagnosis | Comments | | | ty | | | | + +--------+ + + + | IN MOD SEDATION | Routin | 09/25/2018 | Complex regional | | | >=5YRS SAME MD/QUAL | e | 7:31 PM | pain syndrome type 1 | | | PROV; INIT 15 MIN | | PST | of left lower | | | | | | extremity | | + +--------+ + + + | IN PERCUT IMPLNT | Routin | 09/25/2018 | [...]
--- OUTSIDE RECORDS SUMMARY | ~2020-07-04 | XMS | Encounter Summary ---
Demographics + + + | Address | [address] | | | [place] [address] | + + + | Home Phone [...] Team Providers + +------+ + | Care Car Conditioner Name | Role | Phone | [...] | 2017 | on | Center at [facility] [address] | [address] | | | | | [address] | [facility] [place] | | | | | for Health and | [address] | | | | | Healing, [address] | [phone] | | | | | [place], [place] | | | | | | [address] | | | | | | [phone] | | | +--------+ + + + [...]
--- OUTSIDE RECORDS SUMMARY | ~2020-07-04 | XMS | Encounter Summary ---
Demographics + + + | Address | [address] | | | [place] [address] | + + + | Home Phone [...] Providers + +------+ + | Care Director Alumni Relations Name | Role | Phone | + [...] | | | | | [address] | | | | | | [address] | | | | | | [place], | | | | | | [address] [place] [address], | | | | | | [place] [address] | | | | | | [phone] | | | +--------+ + + + [...]
--- OUTSIDE RECORDS SUMMARY | ~2020-07-04 | XMS | Encounter Summary ---
Demographics + + + | Address | [address] | | | [place] [address] | + + + | Home Phone [...] Team Providers + +------+ + | Care Crystal Inspector Name | Role | Phone | [...] | | | regional | [place] | [address] | | | | | pain | FAMILY | [address] | | | | | syndrome), | MEDICINE P | [address] | | | | | lower limb | [address] | [place], [place] | | | | | Pain in | [place], | [address] | | | | | joint, lower | [place] [address] | Phone: | | | | | leg | Phone: | [phone] | | | | | Procedures | [phone] | Fax: | | | | | REQUEST TO | Fax: | [phone] | | | | | SURGERY | [phone] | | | | | | FRUIT OR NUT FARM WORKER | | | +--------+--------+ + + + [...] | | | sympathetic | [place] | [address]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 | FAMILY | [address] | | | | | of lower | MEDICINE P | [address] | | | | | limb | [address] | [place], [place] | | | | | | [place], | [address] | | | | | | [place] [address] | Phone: | | | | | | Phone: | [phone] | | | | | | [phone] | Fax: | | | | | | Fax: | [phone] | | | | | | [phone] | | +--------+--------+ + + + + Encounter Details +--------+---------+ + + + | Date | Type | Department | Care Team | Description | +--------+---------+ + + + | 06/06/ | Office | [facility] Comprehensive | Dale Cantu, | CRPS (complex | | 2011 | Visit | Pain Center at | MD [address] [facility] | regional pain | | | | [facility] | [facility] [address] | syndrome), lower | | | | [address] | [place], [place] | limb; Pain in joint, | | | | Center for [facility] | [address] | lower leg | | | | and Healing, | [phone] | | | | | | | | | | | Floor [place], [place] | | | | | | [address] | | | | | | [phone] | | | +--------+---------+ + + + [...] Dale Cantu MD - 06/06/2012 11:49 [facility]-Procedure Instructions: The procedure you discussed with your doctor is called: SCS TRIAL LUMBAR [facility]. Please make sure this is scheduled with the Manager Garden. Please bring a dedicated local truck driver with you. We may give you medications that make you drowsy or otherw ise unsafe to drive. If you do not have a dedicated local truck driver, we will not be able to do your procedure. DO NOT EAT ANYTHING AFTER MIDNIGHT If your appointment is after 1 PM , you may have a very light, low fat breakfast, such as h [facility] a piece of dry toast or a [...] PLEASE CONTACT THE COMPREHENSIVE PAIN CENTER AT [phone] ([phone]) FOR QUESTIONS OR IF YOU NEED TO CANCEL YOUR APPOINTMENT. [facility] documented [...] not signed. Given information. DALE CANTU MD Timber Estimator, [facility] Warehouse Selector, Pain Medicine Professor, Anesthesiology & Perioperative Medicine ollHomer manriquez MD - 06/06/2012 11:17 AM PDT [facility] Return Visit [...] and a pain drawing which I reviewed. PEDIATRIC GENETICIST Brief Pain Inventory: (ten= worst possible pain [...] The Review of Systems obtained by the CLIENT SERVICE MANAGER was reviewed. Additional Review of Systems: [...] who is following up with Dr. Dale Cnatu at the [facility] today for left foot CRPS which [...] therapy Homer Elaine MD Pain Medicine Fellow [facility] [place] Evelia Parsons - 11:07 AM PDTCMA History: [...]
--- OUTSIDE RECORDS SUMMARY | ~2020-07-04 | XMS | Encounter Summary ---
Demographics + + + | Address | [address] | | | [place] [address] | + + + | Home Phone [...] Providers + +------+ + | Care High Frequency Mill Operator Name | Role | Phone [...] Pharmacy | | | | | | [address] | | | | | | [address] [place], [place] | | | | | | [address] | | | | | | [phone] | | | +--------+ + + + [...]
--- OUTSIDE RECORDS SUMMARY | ~2020-07-04 | XMS | Encounter Summary ---
Demographics + + + | Address | [address] | | | [place] [address] | + + + | Home Phone [...] Team Providers + +------+ + | Care Cad Application Support Specialist Name | Role | Phone | [...] [address] | | | | | [address] | [place], [place] | | | | | [facility] | [address] | | | | | and Healing, | [phone] | | | | | | | | | | | Floor [place], [place] | | | | | | [address] | | | | | | [phone] | | | +--------+ + + + [...]
--- OUTSIDE RECORDS SUMMARY | ~2020-07-04 | XMS | Encounter Summary ---
Demographics + + + | Address | [address] | | | [place] [address] | + + + | Home Phone [...] Team Providers + +------+ + | Care Incident Manager Name | Role | Phone | + +------+ + | Allegra Gandhi | PCP | | + +------+ + Encounter Details +--------+ + + + + | Date | Type | Department | Care Team | Description | +--------+ + + + + | 08/02/ | Results | [facility] | Janak Riojas, | | | 2011 | Only | Pain Center at | MD [address] [facility] | | | | | [facility] | [facility] [id number] | | | | | [address] | [place], [place] | | | | | Center for Health | [address] | | | | | and [place], | [phone] | | | | | | | | | | | Floor [place], [place] | | | | | | [address] | | | | | | [phone] | | | +--------+ + + + [...]
--- OUTSIDE RECORDS SUMMARY | ~2020-07-04 | XMS | Encounter Summary ---
Demographics + + + | Address | [address] | | | [place] [address] | + + + | Home Phone [...] Providers + +------+ + | Care Fine Arts Instructor Name | Role | Phone | + +------+ + | Allegra Gandhi | PCP | | + +------+ + Encounter Details +--------+ + + + + | Date | Type | Department | Care Team | Description | +--------+ + + + + | 03/01/ | Results | [facility] | Janak Riojas, | | | 2011 | Only | Pain Center at | MD [address] [facility] | | | | | [facility] | [facility] [address] | | | | | [address] | [place], [place] | | | | | Center for Health | [address] | | | | | and [place]ina, | [phone] | | | | | | | | | | | Floor [place], [place] | | | | | | [address] | | | | | | [phone] | | | +--------+ + + + [...]
--- OUTSIDE RECORDS SUMMARY | ~2020-07-04 | XMS | Encounter Summary ---
Demographics + + + | Address | [address] | | | [place] [address] | + + + | Home Phone [...] Providers + +------+ + | Care On Site Services Specialist Name | Role | Phone | [...] | | | | | extremity | [address] | [address] | | | | | Muscle pain | Phone: | Phone: | | | | | Procedures | [phone] | [phone] | | | | | REQUEST TO | Fax: | Fax: | | | | | SURGERY | [phone] | [phone] | | | | | REAL ESTATE SUBAGENT | | | | | | | OR INJ,ANES | | | | | | | AGENT,SCIATI | | | | | | | C | | | | | | | NERVE,SINGLE | | | | | | | OR INJECT | | | | | | | NERV | | | | | | | BLCK,OTHR | | | | | | | PERIPH NERV | | | | | | | OR SONO | | | | | | | GUIDE FOR | | | | | | | NEEDLE | | | | | | | PLACEMENT | | | | | | | OR MOD | | | | | | | SEDATION | | | | | | | >=5YRS SAME | | | | | | | MD/QUAL | | | | | | | PROV; INIT | | | | | | | 15 MIN OR | | | | | | [...] 12/27/ | Procedure | Pain Center at [facility] | Alex Sanchez, | Pain in left leg; | | 2017 | | [address] | ,PhD [address] | Procedure | | | | Center for Health | [facility] | | | | | and Healing, | [place], [place] | | | | | [facility] | [address] | | | | | [place], [place] | [phone] | | | | | [address] | | | | | | [phone] | | | +--------+ + + + [...] note mi nayelit be [facility] Instructions - Post Interventional Procedure Date: 12/27/2017 Name: Tracie Farah Date of : 1990 Procedure Performed: trigger point injection and popliteal/sciatic block. Procedure Provider: Alex Sanchez MD,PhD If you have any problems you believe are associated with your procedure tonight, Please call the Hospital Gateman, and ask for the Pain Management Consu ltant. If you have problems or questions between 9:00 am and 4:00 pm, Please call the [facility] Nurse Triage Line, . [...] paper. Please fax the pain diary to [phone] or attach a scanned image of it to a Point2 Property Manager message to your doct or.. The area [...] to the larry ent. David Linares MD [facility] documented in this encounter Progress Notes Alex Sanchez MD,PhD - 12/27/2017 3:00 PM PSTI was present for the entire procedure ( popliteal nerve block and abdominal scar neuroma injection) and all bocanegra elements of this vis it. I reviewed the documentation of the other BEAUTY PARLOR CLEANER providers and concur with Dr. Linares's findings. I edited his note. Alex Sanchez MD,PhD Summer Clerk Anesthesiology and Pain Management [facility] David Pennington MD - 12/27/2017 3:00 PM PSTPROVIDER OPERATIVE NOTE Date: December 27, 2017 Location: [facility] Procedure Room Tracie Farah [id number] :1990, presents to clinic for: PROCEDURE: Popliteal/sciatic [...] scar neuroma ATTENDING PHYSICIAN: Alex Sanchez MD,PhD SUPPLY CHAIN TECHNICIAN: Fellow David Linares MD ANESTHESIA: sedation [...] sedation. Ms. Farah was escorted to the [facility] Procedure R oom, where she was [...] procedure. Images were saved, and sent to [employer]. Ms. Farah was transported to the [facility] Comprehensive Pain Center post-procedure recovery area. [...] by physician. Concentration is 150mg/mL. Compounded by [facility] ) LEVONORGESTREL 20 MCG/24 HR (5 [...] as directed by [facility] Digestive [facility]- 2 gallon bowel prep POLYETHYLENE GLYCOL [...] PRE-SEDATION: Date: December 27, 2017 Tracie Farah [id number] 1990 ALLERGIES: Morphine Previous reaction to Sedation/Analgesia: [...] ride here with you? yes Who?: mother RN/CAMOUFLAGE SPECIALIST History: 1. Has your pain changed from [...] Date: December 27, 2017 Tracie Ocampojulita Farah [id number] 1990 See RN /CAMOUFLAGE SPECIALIST Pre-Sedation Note. IV ACCESS:Right subc PAC. BASELINE VS: See Sedation Flow Sheet. Tracie Donaldson Sofi [id number] 1990, presents to clinic for: Procedure: left [...] started. 1530 Midazolam 2mg IV given 1530 [id number] mcg IV given 1534 Midazolam 1mg IV given 1546 Midazolam 1mg IV given 1546 [id number] mcg IV given 1548 Fentanyl 100 mcg IV given bupivacaine 0.5%, 9mL given, 21mL wasted Kenalog 40mg/mL 1mL, 0 mL wasted 1555 abdominal scar trigger point completed. 1558 Fentanyl 50 mcg IV given 1601 Fentanyl 50 mcg IV given [place] placed for Popliteal Nerve Block.. Placement verified [...] + +--------+ + + + | OR INJECTION(S), | Routin | 12/27/2017 | Complex regional | | | ANESTHETIC AGENT(S) | e | 4:32 PM | pain syndrome type 1 | | | AND/OR STEROID; | | PST | of left lower | | | OTHER PERIPHERAL | | | extremity | | | NERVE OR BRANCH | | | | | + +--------+ + + + | OR ROPIVACAINE HCL | Routin | 12/27/2017 | Complex regional | | | INJ 0.5% | e | 4:32 PM | pain syndrome type 1 | | | | | PST | of left lower | | | | | | extremity | | + +--------+ + + + | OR MOD SEDATION | Routin | 12/27/2017 | Complex regional | | | >=5YRS SAME MD/QUAL | e | 4:32 PM | pain syndrome type 1 | | | PROV; INIT 15 MIN | | PST | of left lower | | | | | | extremity | | + +--------+ + + + documented in this encounter Results BEAUTY PARLOR CLEANER MISC PROCEDURE (12/27/2017 3:28 PM PST) + [...]
--- OUTSIDE RECORDS SUMMARY | ~2020-07-04 | XMS | Encounter Summary ---
Demographics + + + | Address | [address] | | | [place] [address] | + + + | Home Phone [...] Providers + +------+ + | Care Resident Physician In Radiology Name | Role | Phone | + [...] | | | | | syndrome | [facility] | [facility] | | | | | type 1 of | Rd | Rd [place], | | | | | left lower | [facility] [place] | [place] | | | | | extremity | [address] | [address] | | | | | Procedures | Phone: | Phone: | | | | | REQUEST TO | [phone] | [phone] | | | | | SURGERY | Fax: | Fax: | | | | | PLUG WIRER | [phone] | [phone] | +--------+---------+ + + + + Reason [...] | | | | | Procedures | [place], [place] | [place], | | | | | CONSULT [place] | [address] | [place] | | | | | PAIN | | [address] | | | | | MANAGEMENT | | Phone: | | | | | | | [phone] | | | | | | | Fax: | | | | | | | [phone] | +--------+--------+ + + + + Encounter Details +--------+---------+ + + + | Date | Type | Department | Care Team | Description | +--------+---------+ + + + | 10/09/ | Office | [facility] | Alex Sanchez, | Complex regional | | 2018 | Visit | Pain Center at | ,PhD [address] | pain syndrome type 1 | | | | [facility] | [facility] [address] | of left lower | | | | [address] | [place], [place] | extremity (Primary | | | | [place] [facility] | [address] | Dx) | | | | and Healing, | [phone] | | | | | | | | | | | Floor [place], [place] | | | | | | [address] | | | | | | [phone] | | | +--------+---------+ + + + [...] with an external order to see a inventory management specialist today. Please p resent this referral [...] insurance. PRE-PROCEDURE INSTRUCTIONS 1. Please bring a telephone directory distributor driver with you as we may give [...] or blood thinning medications (other than aspirin), [facility] doctor who is doing your procedure will communicate with the provider who is prescribing y our anticoagulant therapy. If you do not have clear instructions on what to do with your an ticoagulant by 2 weeks before your procedure, please contact [facility] to cl arify your instructions. The phone number for questions or concerns is [phone]. documented in this encounter Progress Notes Alex [...] notes. Alex Sanchez MD,PhD [facility] signed by Alex Sanchez MD,PhD at [...] Person MD - 10/09/2018 10:00 AM PST [facility] Return Visit Date: 10/09/2018 Chief Complaint Patient presents with Back pain Low back pain Pain in left leg Knee pain Ankle pain Foot pain History of Present Illness: Tracie Farah is a 28 year old female, whose last appoi ntment at the [facility] [place] was September 28, 2018, for a clinic visit with Yun Frey NP. At that time our plans were: Recommendations/Plan: 1. Recommend to keep her appointment with Dr. Sanchez on 10/02/2018. 2. To contact the [employer] rep if she has any further question [...] She went into the emergency room in [place], [place] where they rem cady the leads. She [...] which she suspects also used dissolvable stitches. 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 Has roommates. Allergies Allergen Reactions Morphine Anaphylaxis [...] the vein (IV) every eight hour s. 7607-9926-25 COMPOUNDED MED RX CONTROLLED (SEE ADMIN INSTRUCT [...] by physician. Concentration is 150mg/mL. Compounded by [employer] ) KETOROLAC IM Inject into the muscle [...] (IV) every twel ve hours as needed. 3787-8550-39 ONDANSETRON 4 MG DISINTEGRATING TABLET Dissolve 1 tablet in mouth every twelve hours as nee ded. PANTOPRAZOLE 40 MG TABLET,DELAYED RELEASE Take 40 mg by mouth once daily. PEG 3350-ELECTROLYTES 236 GRAM-22.74 GRAM-6.74 GRAM-5.86 GRAM SOLUTION Take as directed by [facility] Digestive Health- 2 gallon bowel [...] and summary of old medical records (source: popchips), as summarized in the body of the [...] Key. Arben Valerio MD [facility] 15TH FLOOR [address] [facility] Mail Code: [address] [place] [address] [phone] signed by Alex Sanchez MD,PhD at 10/10/2018 9:27 AM [facility] umented in this encounter Plan of Treatment Not on filedocumented as of this encounter Visit Diagnoses + + | Diagnosis | + + | Complex regional pain syndrome type 1 of left lower extremity - Primary | + + documented in this encounter
--- OUTSIDE RECORDS SUMMARY | ~2020-07-04 | XMS | Encounter Summary ---
Demographics + + + | Address | [address] | | | [place] [address] | + + + | Home Phone [...] Providers + +------+ + | Care Material Flow Engineer Name | Role | Phone | [...] + + | 09/15/ | Telephone | [facility] | Alex Sanchez, | Question | | 2018 | | Pain Center at | ,PhD [address] | | | | | [facility] | [address] | | | | | [address] | [place], [place] | | | | | [facility] | [address] | | | | | and [place], | [phone] | | | | | Building | | | | | | Floor [place], [place] | | | | | | [address] | | | | | | [phone] | | | +--------+ + + + [...]
--- OUTSIDE RECORDS SUMMARY | ~2020-07-04 | XMS | Encounter Summary ---
Demographics + + + | Address | [address] | | | [place] [address] | + + + | Home Phone [...] Providers + +------+ + | Care Wool Grower Name | Role | Phone | [...] | | Complex | Alex Alba, | [facility] [address] | | | | | regional | ,PhD [address] | | | | | pain | [address] | | | | | syndrome | [address] | [address], | | | | | type 1 of | Rd | Basement | | | | | left lower | [place], [place] | [place], [place] | | | | | extremity | [address] | [address] | | | | | Muscle pain | Phone: | Phone: | | | | | Procedures | [phone] | [phone] | | | | | NM BONE | Fax: | Fax: | | | | | &/OR JOINT | [phone] | [phone] | | | | | IMAGING | [...] + + | 12/27/ | Ancillary | [facility] | Alex Sanchez, | | | 2018 | Orders | Pain Center at | ,PhD [address] [facility] | | | | | [facility] | [address] | | | | | [address] | [place], [place] | | | | | [facility] | [address] | | | | | and [address], | [phone] | | | | | [facility] | | | | | | Floor [place], [place] | | | | | | [address] | | | | | | [phone] | | | +--------+ + + + [...] Note | + + | Service Account, Taggled Res In Interface - 12/28/2017 11:43 AM [...]
--- OUTSIDE RECORDS SUMMARY | ~2020-07-04 | XMS | Encounter Summary ---
Demographics + + + | Address | [address] | | | [place] [address] | + + + | Home Phone [...] Team Providers + +------+ + | Care Leveling Machine Operator Name | Role | Phone [...] Pain Medicine | Diagnoses | Chasity, | Provider Relations Specialist Chh1 | | | | / Pain | Abdominal | MD Kenny | [address] | | | | Management | pain, | [address] | [facility] | | | | | unspecified | [facility] | for Health | | | | | location | Rd | and Healing, | | | | | Procedures | [place], [place] | Building | | | | | CONSULT TO | [address] | 1,15th Floor | | | | | PAIN | | [place], [place] | | | | | MANAGEMENT | | [address] | | | | | | | Phone: | | | | | | | [phone] | | | | | | | Fax: | | | | | | | [phone] | +--------+--------+ + + + + Reason [...] Abdominal | | 2016 | | Center [place] [address] [address] | | pain | | | | [address] [facility] | | | | | | for Health and | | | | | | Healing, [facility] [address] | | | | | | [place], [place] | | | | | | [address] | | | | | | [phone] | | | +--------+ + + + [...]
--- OUTSIDE RECORDS SUMMARY | ~2020-07-04 | XMS | Encounter Summary ---
Demographics + + + | Address | [address] | | | [place] [address] | + + + | Home Phone [...] Team Providers + +------+ + | Care Prompt Care Rn Name | Role | Phone | [...] + + | 01/11/ | Telephone | [facility] | Alex Sanchez, | Referral To | | 2018 | | Pain Center at | ,PhD [address] | Orthopedics (discuss | | | | [facility] | [address] | ortho appointment) | | | | [address] | [place], [place] | | | | | [facility] | [address] | | | | | and Healing, | [phone] | | | | | Building | | | | | | Floor [facility] [place] | | | | | | [address] | | | | | | [phone] | | | +--------+ + + + [...]
--- OUTSIDE RECORDS SUMMARY | ~2020-07-04 | XMS | Encounter Summary ---
Demographics + + + | Address | [address] | | | [place] [address] | + + + | Home Phone [...] Team Providers + +------+ + | Care Miniature Model Maker Name | Role | Phone | [...] | 2016 | Encounter | Center at [facility] [address] | | results | | | | [address] [facility] | | | | | | for Health and | | | | | | Healing, Building [address] | | | | | | [place], [place] | | | | | | [address] | | | | | | [phone] | | | +--------+ + + + [...]
--- OUTSIDE RECORDS SUMMARY | ~2020-07-04 | XMS | Encounter Summary ---
Demographics + + + | Address | [address] | | | [place] [address] | + + + | Home Phone [...] Providers + +------+ + | Care Marketing Systems Analyst Name | Role | Phone [...] (plan of care) | | | | [facility] | [address] | | | | | [address] | [place], [place] | | | | | [facility] | [address] | | | | | and Healing, | [phone] | | | | | | | | | | | Floor [place], [place] | | | | | | [address] | | | | | | [phone] | | | +--------+ + + + [...]
--- OUTSIDE RECORDS SUMMARY | ~2020-07-04 | XMS | Encounter Summary ---
Demographics + + + | Address | [address] | | | [place] [address] | + + + | Home Phone [...] Team Providers + +------+ + | Care Side Stitcher Name | Role | Phone | [...] | | [address] [facility] for | [place], [place] | | | | | Health and Healing, | [address] | | | | | | [phone] | | | | | [place], [place] | | | | | | [address] | | | | | | [phone] | | | +--------+ + + + [...] Note | + + | Service Account, Spinzo Res In Interface - 03/08/2018 9:42 AM [...]
--- OUTSIDE RECORDS SUMMARY | ~2020-07-04 | XMS | Encounter Summary ---
Demographics + + + | Address | [address] | | | [place] [address] | + + + | Home Phone [...] Team Providers + +------+ + | Care Oleomargarine Maker Name | Role | Phone | [...] | | | | | Ave Mailcode: [facility] | [place], [place] | | | | | [facility] | [address] | | | | | Health and Healing, | [phone] | | | | | [place] [address] | | | | | | [place], [place] | | | | | | [address] | | | | | | [phone] | | | +--------+ + + + [...] Discharge Instructions Instructions Darlin Doyle RN - 12/14/2016[place] Care Instructions after Colonoscopy You may resume [...] on weekends and holidays call the Hospital Weight Training Instructor toll free 1- [phone] Ext. [phone] or and have the GI doctor marketing content manager paged. The provider who performed your procedure [...] Farah is a 26 y.o. female MR# [id number] presents today for colonoscopy NPO since midnight [...]
--- OUTSIDE RECORDS SUMMARY | ~2020-07-04 | XMS | Encounter Summary ---
Demographics + + + | Address | [address] | | | [place] [address] | + + + | Home Phone [...] Providers + +------+ + | Care Landscape Photographer Name | Role | Phone | + [...] Shane | | | | | [facility] | [facility], | | | | | [address] | [place] [address] | | | | | [facility] | [phone] | | | | | and Healing, | | | | | | [facility] | | | | | | [place], [place] | | | | | | [address] | | | | | | [phone] | | | +--------+ + + + [...]
--- OUTSIDE RECORDS SUMMARY | ~2020-07-04 | XMS | Encounter Summary ---
Demographics + + + | Address | [address] | | | [place] [address] | + + + | Home Phone [...] Providers + +------+ + | Care Poultry Sexer Name | Role | Phone | + [...]
--- OUTSIDE RECORDS SUMMARY | ~2020-07-04 | XMS | Encounter Summary ---
Demographics + + + | Address | [address] | | | [place] [address] | + + + | Home Phone [...] Team Providers + +------+ + | Care Impregnation Operator Name | Role | Phone | [...] Rd | | | | | | [place], [place] | | | | | | [address] | | | +--------+ + + + [...]
--- OUTSIDE RECORDS SUMMARY | ~2020-07-04 | XMS | Encounter Summary ---
Demographics + + + | Address | [address] | | | [place] [address] | + + + | Home Phone [...] Providers + +------+ + | Care Bilingual Account Manager Name | Role | Phone | + +------+ + | Allegra Gandhi | PCP | | + +------+ + Encounter Details +--------+ + + + + | Date | Type | Department | Care Team | Description | +--------+ + + + + | 02/13/ | Hospital | Nuclear Medicine | | | | 2011 | Encounter | at [facility] [address] | | | | | | [address] | | | | | | [address], | | | | | | [place], | | | | | | [place] [address] | | | | | | [phone] | | | +--------+ + + + [...]
--- OUTSIDE RECORDS SUMMARY | ~2020-07-04 | XMS | Encounter Summary ---
Demographics + + + | Address | [address] | | | [place] [address] | + + + | Home Phone [...] | | | regional | [place] | [address] | | | | | pain | FAMILY | Mailstop | | | | | syndrome), | MEDICINE P | [address] | | | | | lower limb | [address] | [place], [place] | | | | | Pain in | [place], | [address] | | | | | joint, lower | [place] [address] | Phone: | | | | | leg | Phone: | [phone] | | | | | Procedures | [phone] | Fax: | | | | | REQUEST TO | Fax: | [phone] | | | | | SURGERY | [phone] | | | | | | TUBE TEST TECHNICIAN | | | +--------+--------+ + + + + Encounter Details +--------+ + + + + | Date | Type | Department | Care Team | Description | +--------+ + + + + | 08/02/ | Procedure | Pain Center at [facility] | Dale Cantu, | Procedure; | | 2011 | | [address] | [address] | Injection; Procedure | | | | [facility] | [facility] [id number] | | | | | and Healing, | [place], [place] | | | | | [facility] | [address] | | | | | Floor [place], [place] | [phone] | | | | | [address] | | | | | | [phone] | | | +--------+ + + + [...] e might be different from the original. [facility] Pain Center Patient Instructions - Post Spinal Cord Stimulator Trial Date: 08/02/2012 Name: Tracie Farah Date of : 1990 Procedure Performed: SCS TRIAL LUMBAR [facility]. Procedure Provider: Dale Cantu [facility] Procedure Rm If you have any problems you believe are associated with your procedure tonight, Please call the Hospital Chemistry Laboratory Technician, and ask for the Pain Management Consu ltant. If you have problems or questions between 9:00 am and 4:00 pm, Please call the [facility] Pain Center Nurse Triage Line, . If you go to an Emergency Room, please bring this form with you. DISCHARGE INSTRUCTIONS Call immediately and/or go to the Emergency department if any concerns about wound healing, fever, or chills. Also call for concerns about SCS function. During [facility] open hours, call the [facility] ([phone]), after hours call the bleacher operator at [facility] ([phone]) and ask for t he Adult Pain Service casino controller. Identify yourself as a [facility] [...] the wounds, dressing, or SCS function. During [facility] o pen hours, call the [facility] ([phone]), after hours call the bleacher operator at [facility] ([phone] ) and ask for the Adult Pain Service casino controller. Identify yourself as my patient with a concer n about postoperative recovery. If there are concerns about the SCS programming, contact t he visitor services representative from the SCS survival specialist. If the stimulation is not covering your area o f pain, your SCS should be reprogrammed. Do not take any blood thinning medications during the trial. Instructions printed and reviewed with the patient. Copy of instructions given to Ms. Nemo renee. DALE CANTU MD [facility] documented in this encounter Progress Notes Dale Cantu MD - 08/03/2012 11:02 PM PDTI was present for the entire procedure (spinal cord stimulator trial lead placement, [facility]). I concur with Dr. Yost's findings. I edited his note. She noted an appropriate pattern of simulation with multiple contact confi gurations. She was provided programming and postoperative care instructions. DALE CANTU MD Power Electronics Engineer, [facility] Center Dean Of Men, Pain Medicine Professor, Anesthesiology & Perioperative Medicine Diana Arroyo RN - 08/02/2012 7:34 AM PDT PRE-SEDATION: Date: August 02, 2012 Tracie Farah [id number] 1990 ALLERGIES: Morphine Previous reaction to Sedation/Analgesia: MEDICATIONS: Current Outpatient Prescriptions Medication HYDROcodone-acetaminophen (NORCO) 10-325 mg Oral Tablet KETOROLAC TROMETHAMINE (TORADOL IM) levonorgestrel (MIRENA) 20 mcg/24 hr Intrauterine IUD LORazepam 1 mg Oral Tablet ondansetron (ZOFRAN) 8 mg Oral Tablet promethazine 25 mg Oral Tablet Meets NPO Guidelines. IV ACCESS: IV in Place IV Site [facility] 22 g @ 0655 BASELINE VS: See Sedation Flow Sheet. Tracie [facility]on [facility] [id number] 1990, presents to clinic for: Procedure: Spinal [...] 0732 - 0733: Midazolam 2 [place] [address]: Fentanyl 25 mcg IV 0740 - 0741: Midazolam 2 mg IV 0742: Procedure started 0743 - 0744: Fentanyl 50 mcg IV 0753-54: Fentanyl 25 mcg IV Lead # 1 placed Lead # 2 placed 0801: Stimulation started. 0829: Pt reports stimulation to usual areas of pain. Leads secured. 0845: [facility] in stable condition. IV dc'd. Evelia Parsons [...] OPERATIVE NOTE Date: August 02, 2012 Location: [facility] Procedure Room Tracie Farah [id number] :1990, presents to clinic for: PROCEDURE: Spinal Cord Stimuation Trial LEVEL/LATERALITY: midline lumbar PRE-OPERATIVE DIAGNOSIS: 355.71B CRPS (complex regional pain syndrome), lower limb 719.46 Pain in joint, lower leg 781.2Q Gait disturbance POST-OPERATIVE DIAGNOSIS: 355.71B CRPS (complex regional pain syndrome), lower limb 719.46 Pain in joint, lower leg 781.2Q Gait disturbance ATTENDING PHYSICIAN: Dale Cantu MD SLAG MIXER: Fellow Bear Yost DO ANESTHESIA: sedation delivered [...] sedation. Ms. Farah was escorted to the [facility] Procedure Ro om, where she was positioned Prone on the examination table. TEAM PAUSE: The physician-led pause was conducted, and is documented in the Nursing note. Monitors were placed, including ECG, NIBP and SpO2. The skin was prepared with Chloroprep and sterile drapes were applied. Optimitive system was used for this procedure. The company visitor services representative was theresa knutson for the [...] pain. Ms. Farah was transported to the [facility] Comprehensive Pain Center post-procedure recovery area where she made an uneventful recovery. Images were saved, and sent to [facility]. Ms. Farah will have her next appointment [...] about wound healing or SCS function. During [facility] open hours, call the [facility] ([phone]), after h ours call the bleacher operator at [facility] ([phone]) and ask for the Adult Pain Service casino controller. Identify yourself as my patient with a [...] + +--------+ + + + | [facility] | Routin | 08/03/2012 | [...]
--- OUTSIDE RECORDS SUMMARY | ~2020-07-04 | XMS | Encounter Summary ---
Demographics + + + | Address | [address] | | | [place] [address] | + + + | Home Phone [...] Team Providers + +------+ + | Care Radio Mechanic Helper Name | Role | Phone | + +------+ + | Justo Vazquez MD | PCP | | + +------+ + Encounter Details +--------+ + + + + | Date | Type | Department | Care Team | Description | +--------+ + + + + | 05/05/ | Documentati | [facility] Comprehensive | Alex Sanchez, | | | 2018 | on | Pain Center at | ,PhD [address] | | | | | [facility] | [address] | | | | | [address] | [place], [place] | | | | | [place] for [facility] | [address] | | | | | and Healing, | [phone] | | | | | | | | | | | Floor [place], [place] | | | | | | [address] | | | | | | [phone] | | | +--------+ + + + [...]
--- OUTSIDE RECORDS SUMMARY | ~2020-07-04 | XMS | Encounter Summary ---
Demographics + + + | Address | [address] | | | [place] [address] | + + + | Home Phone [...] Providers + +------+ + | Care Brim Stitcher Name | Role | Phone | [...] Oliveira | | 2011 | IP | [address] | | House - Approved | | | | Giuliana Maldonado [place], | | | | | | [place] [address] | | | +--------+ + + + [...]
--- OUTSIDE RECORDS SUMMARY | ~2020-07-04 | XMS | Encounter Summary ---
Demographics + + + | Address | [address] | | | [place] [address] | + + + | Home Phone [...] Providers + +------+ + | Care Medical Cost Consultant Name | Role | Phone | [...] with nausea | [address] | [address] [place], | | | | | Complex | Rd | [place] | | | | | regional | [place], [place] | [address] | | | | | pain | [address] | Phone: | | | | | syndrome | Phone: | [phone] | | | | | type 1 of | [phone] | Fax: | | | | | left lower | Fax: | [phone] | | | | | extremity | [phone] | | | | | | Procedures [...] unspecified | [facility] | [address] | | | | | location | Rd | [facility] | | | | | Procedures | [place], [place] | Rd [place], | | | | | CONSULT TO | [address] | [place] | | | | | PAIN | | [address] | | | | | MANAGEMENT | | Phone: | | | | | | | [phone] | | | | | | | Fax: | | | | | | | [phone] | +--------+--------+ + + + + Encounter Details +--------+---------+ + + + | Date | Type | Department | Care Team | Description | +--------+---------+ + + + | 04/19/ | Office | [facility] Ilene | Alex Sanchez, | Intractable cyclical | | 2018 | Visit | Pain Center at | ,PhD [address] | vomiting with | | | | [facility] | [address] | nausea (Primary Dx); | | | | [address] | [place], [place] | Complex regional | | | | [place] for [facility] | [address] | pain syndrome type 1 | | | | and Healing, | [phone] | of left lower | | | | Building | | extremity | | | | Floor [facility] [place] | | | | | | [address] | | | | | | [phone] | | | +--------+---------+ + + + [...] might be differe nt from the original. [facility] Pain Center Return Visit Date: 04/20/2018 Chief Complaint Patient presents with Abdominal pain Back pain Pain in left leg History of Present Illness: Tracie Farah is a 27 year old female, whose last appoi ntment at the [facility] was 12/27/2017, for [...] not help for the abdominal pain). PAINBRIEF: [facility] Brief Pain Inventory: (ten= [...] History Social History Narrative Single. Goes to [employer] with a light load. 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 Has roommates. Allergies Allergen Reactions Morphine Anaphylaxis [...] by physician. Concentration is 150mg/mL. Compounded by [facility] ) KETOROLAC IM Inject into the [...] directed by [facility]- 2 gallon bowel [...] to her by Christie Madrid MD in [place], [place]. As she chowdhury s since left the practice, Ms. Farah no longer has a prescriber for this medication. At [facility], we typically do not provide [...] Follow up as needed Alex Sanchez MD,PhD [facility] 3 :41 PM PDTSmithCharline MA [...]
--- OUTSIDE RECORDS SUMMARY | ~2020-07-04 | XMS | Encounter Summary ---
Demographics + + + | Address | [address] | | | [place] [address] | + + + | Home Phone [...] Providers + +------+ + | Care Payroll Tax Specialist Name | Role | Phone | [...] Rd | | | | | | [place], [place] | | | | | | [address] | | | +--------+ + + + [...]
--- OUTSIDE RECORDS SUMMARY | ~2020-07-04 | XMS | Encounter Summary ---
Demographics + + + | Address | [address] | | | [place] [address] | + + + | Home Phone [...] Team Providers + +------+ + | Care Filing Or Registry Clerk Name | Role | Phone | + +------+ + | Justo Vazquez MD | PCP | | + +------+ + Encounter Details +--------+------+ + + + | Date | Type | Department | Care Team | Description | +--------+------+ + + + | 12/14/ | Lab | Laboratory at [facility] | | Complex regional | | 2018 | | [address] | | pain syndrome type 1 | | | | Center for [facility] | | of left lower | | | | and Healing, | | extremity; Muscle | | | | Building 2 | | pain | | | | [place], [place] | | | | | | [address] | | | | | | [phone] | | | +--------+------+ + + + [...] | [facility] [place] | [address] | [place] [address] | | | [address]OSS | GUILLERMO [...]
--- OUTSIDE RECORDS SUMMARY | ~2020-07-04 | XMS | Encounter Summary ---
Demographics + + + | Address | [address] | | | [place] [address] | + + + | Home Phone [...] Providers + +------+ + | Care Nuclear Powerplant Supervisor Name | Role | Phone | [...] ogy | | Ava Torres, | [address] | | | | | Constipation | [address] | [address] | | | | | , | [address] | [place] for | | | | | unspecified | [address] | Health and | | | | | constipation | [facility] [place] | Healing, | | | | | type | [address] | Building 2 | | | | | Procedures | | [place], [place] | | | | | CONSULT TO | | [address] | | | | | GI PROCEDURE | | Phone: | | | | | UNIT: | | [phone] | | | | | ANORECTAL | | Fax: | | | | | MANOMETRY | | [phone] | | | | | MO ANAL | | | | | | | PRESSURE | | | | | | | RECORD | | | +--------+--------+ + + + + Encounter Details +--------+ + + + + | Date | Type | Department | Care Team | Description | +--------+ + + + + | 09/14/ | Hospital | [facility] | Nurse, Gip [address] | | | 2016 | Encounter | [place] [address] [facility] | | | | | [address] [facility] for | Road [place], [place] | | | | | Health and Healing, | [address] | | | | | Building 2 | | | | | | [place], [place] | | | | | | [address] | | | | | | [phone] | | | +--------+ + + + [...]
--- OUTSIDE RECORDS SUMMARY | ~2020-07-04 | XMS | Encounter Summary ---
Demographics + + + | Address | [address] | | | [place] [address] | + + + | Home Phone [...] Providers + +------+ + | Care Systems Test Technician Name | Role | Phone [...] | Diagnoses | Beulah | Edu Pt Finish Grinder | | | | Therapy | CRPS | Janak Martinez MD | [address] | | | | | (complex | [address] | | | | | regional | [address] | Mailcode: | | | | | pain | [facility]stop | [facility] | | | | | syndrome), | [address] | for Health | | | | | lower limb | [place], [place] | and Healing, | | | | | Gait | [address] | Building 1 | | | | | disturbance | Phone: | [place], [place] | | | | | Muscle pain | [phone] | [address] | | | | | Procedures | Fax: | Phone: | | | | | PHYSICAL | [phone] | [phone] | | | | | THERAPY | [...] | | | | [address] [place] | [place] [address] | syndrome), lower | | | | [address] | [phone] | limb (Primary Dx) | | | | [facility] | | | | | | and Healing, | | | | | | Building 1, | | | | | | Floor [place], [place] | | | | | | [address] | | | | | | [phone] | | | +--------+---------+ + + + [...] might be different f rom the original. [id number] BRODY FARAH Date of : 1990 Start of care: 02/14/2012 Date of onset: 02/14/2012 Referring/Attending Practitioner: Janak Riojas MD . Primary/Referral Diagnosis/ICD-9: 355.71B CRPS (complex regional pain syndrome), lower limb Insurance: Payor: [facility] Plan: BCBS OUT OF STATE Product Type: PP O Service period from: 02/14/2012 to: 08/12/2012 Number visits used/authorized: 01/23 [facility] PHYSICAL THERAPY PROGRESS NOTE SUBJECTIVE: Age: 21 y.o. Sex: female Chief complaint: No chief complaint on file. Current: pt has been doing her neck exercises. She is not shaking as much. Her foot hurts t bruno. Now she is working at [employer] 2-3 hours per week, and spends a [...] change in their status. Guillermo Sanon MSPT [facility] Outpatient Rehabilitation Services Mailcode: Ch3g [address] [facility], [address] [place] [phone] documented in this encounter Plan of [...]
--- OUTSIDE RECORDS SUMMARY | ~2020-07-04 | XMS | Encounter Summary ---
Demographics + + + | Address | [address] | | | [place] [address] | + + + | Home Phone [...] Team Providers + +------+ + | Care Chocolate Molder Name | Role | Phone | [...] Rd | | | | | | [place], [place] | | | | | | [address] | | | +--------+ + + + [...]
--- OUTSIDE RECORDS SUMMARY | ~2020-07-04 | XMS | Encounter Summary ---
Demographics + + + | Address | [address] | | | [place] [address] | + + + | Home Phone [...] Team Providers + +------+ + | Care Produce Service Team Member Name | Role | Phone | + +------+ + | Justo Vazquez MD | PCP | | + +------+ + Encounter Details +--------+ + + + + | Date | Type | Department | Care Team | Description | +--------+ + + + + | 12/28/ | Derrick Builder | [facility] Comprehensive | Alex Sanchez, | Arthralgia of lower | | 2018 | | Pain Center at | ,PhD [address] | leg, unspecified | | | | [facility] | [address] | laterality (Primary | | | | [address] | [place], [place] | Dx) | | | | Center for Health | [address] | | | | | and Healing, | [phone] | | | | | | | | | | | Floor [place], [place] | | | | | | [address] | | | | | | [phone] | | | +--------+ + + + [...]
--- OUTSIDE RECORDS SUMMARY | ~2020-07-04 | XMS | Encounter Summary ---
Demographics + + + | Address | [address] | | | [place] [address] | + + + | Home Phone [...] Providers + +------+ + | Care Manager Operational Name | Role | Phone | + [...] Oliveira | | 2011 | IP | [address] | | House - Approved | | | | Giuliana Maldonado [place], | | | | | | [place] [address] | | | +--------+ + + + [...]
--- OUTSIDE RECORDS SUMMARY | ~2020-07-04 | XMS | Encounter Summary ---
[...] Providers + +------+ + | Care Livestock Farmers Name | Role | Phone | + +------+ + | Justo Vazquez MD | PCP | | + +------+ + Encounter Details +--------+ + + + + | Date | Type | Department | Care Team | Description | +--------+ + + + + | 03/23/ | MyChart | [facility] | Ilene Bright, | Welcome | | 2017 | Encounter | Pain Center at | SENIOR DATA QUALITY ANALYST [address] | | | | | [facility] | [place], [place] | | | | | [address] | [address] | | | | | [place] for [facility] | [phone] | | | | | and Healing, | | | | | | | | | | | | Floor [place], [place] | | | | | | [address] | | | | | | [phone] | | | +--------+ + + + [...]
--- OUTSIDE RECORDS SUMMARY | ~2020-07-04 | XMS | Encounter Summary ---
Demographics + + + | Address | [address] | | | [place] [address] | + + + | Home Phone [...] Team Providers + +------+ + | Care Fabric And Accessories Estimator Name | Role | Phone | + [...] + + | 12/05/ | Hospital | [facility] | Alex Sanchez, | | | 2019 | Encounter | STAY [address] | ,PhD [address] [facility] | | | | | [place] Mailcode: [facility] | [address] | | | | | [facility] | [place], [place] | | | | | Health and [facility], | [address] | | | | | [place] [address] | [phone] | | | | | [place], [place] | | | | | | [address] | | | | | | [phone] | | | +--------+ + + + [...] s/p successful DRG trial lead system with Ultracell System on 09/25/2018. No changes in H&P, [...] NOTE Date: December 05, 2018 Location: [facility] [place] | | | Tracie Farah [id number] :1990, presents to clinic | | | for: Dorsal root ganglion stimulator implant PROCEDURE: Dorsal | | | root ganglion stimulator implant PRE-OPERATIVE DIAGNOSIS: Complex | | | regional Pain syndrome type 1 of left lower extremity | | | POST-OPERATIVE DIAGNOSIS: Complex regional Pain syndrome type 1 of | | | left lower extremity ATTENDING PHYSICIAN: Alex Sanchez | | | MACHINE SETTER: Arben Valerio MD ANESTHESIA: sedation by IVIS Cole | | | Carmen, supervised by latin dance instructor Ilir Valdes. | | | FINDINGS: Appropriate [...] Ms. Farah was escorted to the [facility] | | | [place], where she [...] to the | | | [facility] new accounts banking representative. A test stimulation was performed [...] recovery. Images were saved, and sent to [facility]. | | | Alex Sanchez (attending) was present for the entire procedure. | | | Arben Valeiro MD I was present for the entire procedure | | | (spinal cord stimulator implantation with DRG leads at left L4 and | | | L5) and all bocanegra elements of this visit. I reviewed the | | | documentation of the other [facility] providers and concur with Dr. | | | Iman's findings. I edited his note. Alex Sanchez, | | | ,PhD Equal Opportunity Specialist Anesthesiology and Pain Management | | | [facility] | | + [...] + + | JOSE ANTONIO MIN | [address] | [place] [address] | | | OF CARE TESTS | [...]
--- OUTSIDE RECORDS SUMMARY | ~2020-07-04 | XMS | Encounter Summary ---
Demographics + + + | Address | [address] | | | [place] [address] | + + + | Home Phone [...] Providers + +------+ + | Care Director Paid Media Name | Role | Phone | + [...] | Complex | Alex Alba, | [facility] [address] | | | | | regional | ,PhD [address] | | | | | pain | [address] | [address] | | | | | syndrome | [address] | [address], | | | | | type 1 of | Rd | Basement | | | | | left lower | [place], [place] | [place], [place] | | | | | extremity | [address] | [address] | | | | | Muscle pain | Phone: | Phone: | | | | | Procedures | [phone] | [phone] | | | | | NM BONE | Fax: | Fax: | | | | | &/OR JOINT | [phone] | [phone] | | | | | IMAGING | [...] | | 2018 | Encounter | at [facility] [address] | ,PhD [address] [facility] | | | | | [address] | [address] | | | | | [address], | [place], [place] | | | | | [facility], | [address] | | | | | [place] [address] | [phone] | | | | | [phone] | | | +--------+ + + + [...]
--- OUTSIDE RECORDS SUMMARY | ~2020-07-04 | XMS | Encounter Summary ---
Demographics + + + | Address | [address] | | | [place] [address] | + + + | Home Phone [...] Team Providers + +------+ + | Care Lcpc Name | Role | Phone | + +------+ + | Justo Vazquez MD | PCP | | + +------+ + Encounter Details +--------+ + + + + | Date | Type | Department | Care Team | Description | +--------+ + + + + | 12/27/ | Ancillary | [facility] | Alex Sanchez, | | | 2018 | Orders | Pain Center at | ,PhD [address] | | | | | [facility] | [address] | | | | | [address] | [place], [place] | | | | | [place] for [facility] | [address] | | | | | and Healing, | [phone] | | | | | | | | | | | Floor [place], [place] | | | | | | [address] | | | | | | [phone] | | | +--------+ + + + [...]
--- OUTSIDE RECORDS SUMMARY | ~2020-07-04 | XMS | Encounter Summary ---
Demographics + + + | Address | [address] | | | [place] [address] | + + + | Home Phone [...] Providers + +------+ + | Care Wire Harness Design Engineer Name | Role | Phone [...] | Diagnoses | Beulah | Edu Pt Patient Registration Representative | | | | Therapy | CRPS | Janak Martinez MD | [address] [address] | | | | | (complex | [address] | | | | | regional | [address] | Mailcode: | | | | | pain | Mailstop | [facility] | | | | | syndrome), | [id number] | for Health | | | | | lower limb | [place], [place] | and Healing, | | | | | Gait | [address] | Building 1 | | | | | disturbance | Phone: | [place], [place] | | | | | Muscle pain | [phone] | [address] | | | | | Procedures | Fax: | Phone: | | | | | PHYSICAL | [phone] | [phone] | | | | | THERAPY | [...] | | | | [place] | [place] [address] | syndrome), lower | | | | [address] | [phone] | limb (Primary Dx) | | | | [facility] | | | | | | and Healing, | | | | | | Building 1, | | | | | | Floor [place], [place] | | | | | | [address] | | | | | | [phone] | | | +--------+---------+ + + + [...] might be different f rom the original. [id number] BRODY FARAH Date of : 1990 Start of care: 02/14/2012 Date of onset: 02/14/2012 Referring/Attending Practitioner: Janak Riojas MD . Primary/Referral Diagnosis/ICD-9: 355.71B CRPS (complex regional pain syndrome), lower limb Insurance: Payor: [facility] Plan: BCBS OUT OF STATE [...] no pain relief. Admitted to the inpatient [facility] program for 1 month in the [...] Records from CRPS program at [facility]. Suggest three phase bone sca n. [...] by the psychologists here at the [facility]. 2.2 Physical therapy can reduce pain and improve functional status. Suggest Guillermo Sanon. 3. Medication suggestions: 3.1 Continue titrating up duloxetine. 3.2 As for any patient being managed with chronic opioids, we do recommend that the patient have a signed [facility] Material Risk Notice, agree to whatever refill [...] a significant factor in ongoing pain, temperature luek nges, edema, and other changes. We discussed [...] and hemr oidectomy. Social History: lives in [place], 22 years old, not working [...] or concerns about therapy: she lives in [place]. She is r equesting family [...] provided with a token and bocanegra for [facility] site. Treatment began: 1345hrs Treatment ended: 1430hrs Manual therapy: 0min Therapeutic exercise: 15 min ASSESSMENT: pt presents with 10-year history of ankle pain post trauma and multiple surgeri es. She thinks she developed CRPS in 2004. She was diagnosed with CRPS and spent a month in the program at [facility] working through aggressive desensitization and activation which prov ided no lasting benefit. She lives in [place], is going to school, and [...] She can work with her PT in [place]. CLINICAL PRIORITIES: 1-follow up with [...] CENTER Outpatient Rehabilitation Services Mailcode: Ch3p [address] [facility], 1st [facility] [address] documented in this encounter [...]
--- OUTSIDE RECORDS SUMMARY | ~2020-07-04 | XMS | Encounter Summary ---
Demographics + + + | Address | [address] | | | [place] [address] | + + + | Home Phone [...] Providers + +------+ + | Care Marine Fuel Dock Attendant Name | Role | Phone | [...] | | | | regional | ,PhD [address] | | | | | | pain | [address] | | | | | | syndrome | [address] | | | | | | type 1 of | Rd | | | | | | left lower | [place], [place] | | | | | | extremity | [address] | | | | | | Procedures | Phone: | | | | | | CONSULT TO | [phone] | | | | | | ORTHOPEDICS | Fax: | | | | | | AND | [phone] | | | | | | REHABILITATI | | | | | | | ON | | | +--------+--------+ + + + + Encounter Details +--------+ + + + + | Date | Type | Department | Care Team | Description | +--------+ + + + + | 06/08/ | Automatic Bandsaw Tender | [facility] | Alex Sanchez, | Complex regional | | 2019 | | Pain Center at | ,PhD [address] | pain syndrome type 1 | | | | [facility] | [address] | of left lower | | | | [address] | [place], [place] | extremity (Primary | | | | Center for Health | [address] | Dx) | | | | and Healing, | [phone] | | | | | | | | | | | Floor [place], [place] | | | | | | [address] | | | | | | [phone] | | | +--------+ + + + [...]
--- OUTSIDE RECORDS SUMMARY | ~2020-07-04 | XMS | Encounter Summary ---
Demographics + + + | Address | [address] | | | [place] [address] | + + + | Home Phone [...] Team Providers + +------+ + | Care Online Merchandising Coordinator Name | Role | Phone | [...] | CRPS | Janak Martinez MD | [facility] [address] | | | | | (complex | [address] | [address] | | | | | regional | [address] | [address] | | | | | pain | Mailstop | [address], | | | | | syndrome), | [id number] | Basement | | | | | lower limb | [place], [place] | [place], [place] | | | | | Procedures | [address] | [address] | | | | | [place] BONE &/[place] | Phone: | Phone: | | | | | JOINT | [phone] | [phone] | | | | | IMAGING 3 | Fax: | Fax: | | | | | PHASE | [phone] | [phone] | +--------+--------+ + + + + Encounter Details +--------+ + + + + | Date | Type | Department | Care Team | Description | +--------+ + + + + | 02/13/ | Hospital | Nuclear Medicine | | | | 2011 | Encounter | at [facility] [address] | | | | | | [address] | | | | | | [address], | | | | | | [place], | | | | | | [place] [address] | | | | | | [phone] | | | +--------+ + + + [...]
--- OUTSIDE RECORDS SUMMARY | ~2020-07-04 | XMS | Encounter Summary ---
Demographics + + + | Address | [address] | | | [place] [address] | + + + | Home Phone [...] Team Providers + +------+ + | Care Sawdust Machine Operator Name | Role | Phone [...] | | | regional | [place] | [address] | | | | | pain | FAMILY | Mailstop | | | | | syndrome), | MEDICINE P | [address] | | | | | lower limb | [address] | [place], [place] | | | | | Gait | [place], | [address] | | | | | disturbance | [place] [address] | Phone: | | | | | Muscle pain | Phone: | [phone] | | | | | Procedures | [phone] | Fax: | | | | | REQUEST TO | Fax: | [phone] | | | | | SURGERY | [phone] | | | | | | MULTILITH OPERATOR | | | +--------+--------+ + + + + Encounter Details +--------+ + + + + | Date | Type | Department | Care Team | Description | +--------+ + + + + | 03/01/ | Procedure | Pain Center at [facility] | Dale Cantu, | Foot pain (left); | | 2011 | | [address] | [address] [place] [place] | Procedure | | | | Center for Health | [address] Mailstop [id number] | | | | | and Healing, | [place], [place] | | | | | [facility] | [address] | | | | | Floor [place], [place] | [phone] | | | | | [address] | | | | | | [phone] | | | +--------+ + + + [...] migh t be different from the original. [facility] Patient Instructions - Post Interventional Procedure Date: 03/01/2012 Name: Tracie Farah Date of : 1990 Procedure Performed: LUMBAR SYMPATHETIC BLOCK. Procedure Provider: Dale Cantu If you have any problems you believe are associated with your procedure tonight, Please call the Hospital Mosaic Tile Maker, and ask for the Pain Management Consu ltant. If you have problems or questions between 9:00 am and 4:00 pm, Please call the [facility] Nurse Triage Line, . If [...] to the larry ent. LAKEISHA HERRING MD [facility] documented in this encounter Progress Notes Dale Cantu MD - 03/01/2012 2:21 PM PDTI was present for the entire procedure (lumbar sympathetic block) and all bocanegra elements of this visit. I reviewed the documentation of the other STOCK PATCHER providers and concur with Dr. Herring's findings. [...] benefit from multidisciplinary treatment. DALE CANTU MD Heeler Machine, [facility] Video Intern, Pain Medicine Professor, Anesthesiology & Perioperative Medicine NAEiDiana scott RN - 03/01/2012 1:35 PM PDT PRE-SEDATION: Date: March 01, 2012 Tracie Farah [id number] 1990 ALLERGIES: Morphine Previous reaction to Sedation/Analgesia: MEDICATIONS: Current Outpatient Prescriptions Medication DULoxetine (CYMBALTA) 30 mg Oral Capsule, Delayed Release(E.C.) HYDROcodone-acetaminophen (NORCO) 10-325 mg Oral Tablet levonorgestrel (MIRENA) 20 mcg/24 hr Intrauterine IUD LORazepam 1 mg Oral Tablet promethazine 25 mg Oral Tablet Meets NPO Guidelines. IV ACCESS: IV in Place IV Start Time 58003, 22g, DRH BASELINE VS: See Sedation Flow Sheet. Tracie Farah [id number] 1990, presents to clinic for: Procedure: Lumbar [...] ml. 1344: Procedure complete. [place] per man in stable condiotion. IV [...] OPERATIVE NOTE Date: March 01, 2012 Location: [facility] Procedure Room Tracie Donaldson [facility] [id number] :1990, presents to clinic for: PROCEDURE: Lumbar sympathetic block LEVEL/LATERALITY: left L3 PRE-OPERATIVE DIAGNOSIS: 355.71B CRPS (complex regional pain syndrome), lower limb 719.46 Pain in joint, lower leg POST-OPERATIVE DIAGNOSIS: 355.71B CRPS (complex regional pain syndrome), lower limb 719.46 Pain in joint, lower leg ATTENDING PHYSICIAN: Dale Cantu INTELLIGENCE APPLICATIONS: Fellow Lakeisha Herring MD ANESTHESIA: sedation delivered [...] sedation. Ms. Farah was escorted to the [facility] Procedure Ro om, where she was [...] compromise. Ms. Farah was transported to the [facility] post-procedure recovery [...] block. Images were saved, and sent to [employer]. Ms. Farah will have her next appointment [...] + +--------+ + + + | [place] INJECT NERV | Routin | 03/01/2012 | CRPS (complex | | | BLCK,PARAVERT | e | 2:20 PM | regional pain | | | SYMPATH | | PDT | syndrome), lower | | | | | | limb Pain in joint, | | | | | | lower leg | | + +--------+ + + + | [place] LOCM 100-199 | Routin | 03/01/2012 | CRPS (complex | | | MG/MLICON | e | 1:53 PM | regional pain | | | | | PDT | syndrome), lower | | | | | | limb Pain in joint, | | | | | | lower leg | | + +--------+ + + + | [place] INJ BUPIVACAINE | Routin | 03/01/2012 | [...]
--- OUTSIDE RECORDS SUMMARY | ~2020-07-04 | XMS | Encounter Summary ---
Demographics + + + | Address | [address] | | | [place] [address] | + + + | Home Phone [...] Team Providers + +------+ + | Care Marklogic Developer Name | Role | Phone | + +------+ + | Justo Vazquez MD | PCP | | + +------+ + Encounter Details +--------+ + + + + | Date | Type | Department | Care Team | Description | +--------+ + + + + | 12/07/ | Health Actuary | [facility] at [facility] | Ava Carbajal | | | 2016 | | [address] MD | | | | | [address] [facility] for | | | | | | Health and Healing, | | | | | | Building 2 | | | | | | [place], [place] | | | | | | [address] | | | | | | [phone] | | | +--------+ + + + [...]
--- OUTSIDE RECORDS SUMMARY | ~2020-07-04 | XMS | Encounter Summary ---
Demographics + + + | Address | [address] | | | [place] [address] | + + + | Home Phone [...] Team Providers + +------+ + | Care Neuropathologist Name | Role | Phone | + [...] | | | sympathetic | [place] | [address]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 | FAMILY | Mailstop | | | | | of lower | MEDICINE P | [address]26 | | | | | limb | [address] | [place], [place] | | | | | | [place], | [address] | | | | | | [place] [address] | Phone: | | | | | | Phone: | [phone] | | | | | | [phone] | Fax: | | | | | | Fax: | [phone] | | | | | | [phone] | | +--------+--------+ + + + + Encounter Details +--------+---------+ + + + | Date | Type | Department | Care Team | Description | +--------+---------+ + + + | 09/04/ | Office | [facility] Comprehensive | Dale Cantu, | CRPS (complex | | 2011 | Visit | Pain Center at | [address] [facility] [facility] | regional pain | | | | [facility][Note 3] | [facility] [id number] | syndrome), lower | | | | [address] | [place], [place] | limb; Gait | | | | [place] for [facility] | [address] | disturbance; Sleep | | | | and Healing, | [phone] | disturbance, | | | | Building | | unspecified; | | | | Floor [place], [place] | | Adjustment reaction | | | | [address] | | | | | | [phone] | | | +--------+---------+ + + + [...] CRPS patients (Loretta Rousseau et al. Katrina Manager Administrative Services Med. 2010;152:152-158) . Bisphosphonate trial. Typically, I [...] Abraham MD - 09/04/2012 7:45 AM PDT [facility] Return Visit with Dr. [...] and a pain drawing which I reviewed. [facility] Brief Pain Inventory: (ten= worst possible pain [...] leads 08/02/2012 [facility], Surgeon: Dale Cantu MD Family History [...] The Review of Systems obtained by the [facility] was reviewed. Additional Review of Systems sean [...] of Pain: 13(1):17-21, 2008). DALE CANTU MD Automotive Engineering Technician, [facility] Endoscopy Nurse, Pain Medicine Professor, Anesthesiology & Perioperative Medicine [...]
--- OUTSIDE RECORDS SUMMARY | ~2020-07-04 | XMS | Encounter Summary ---
Demographics + + + | Address | [address] | | | [place] [address] | + + + | Home Phone [...] Team Providers + +------+ + | Care Ripening Room Hand Name | Role | Phone | + +------+ + | Justo Vazquez MD | PCP | | + +------+ + Encounter Details +--------+------+ + + + | Date | Type | Department | Care Team | Description | +--------+------+ + + + | 04/23/ | Lab | Laboratory at [facility] | | Other chronic pain ; | | 2018 | | [address] | | Complex regional | | | | Center for [facility] | | pain syndrome type 1 | | | | and Healing, | | of left lower | | | | Building 2 | | extremity | | | | [place], [place] | | | | | | [address] | | | | | | [phone] | | | +--------+------+ + + + [...] LABORATORY | | Barbiturates >=200 ng/mL | [facility] | | Benzodiazepine >=200 ng/mL Cocaine | [...] | KEVIN SHAH | [address] | [place] [address] | | | SERVICES, LILLIAN | GUILLERMO [...]
--- OUTSIDE RECORDS SUMMARY | ~2020-07-04 | XMS | Encounter Summary ---
Demographics + + + | Address | [address] | | | [place] [address] | + + + | Home Phone [...] Providers + +------+ + | Care Line Out Worker Name | Role | Phone | [...] Rd | | | | | | [place], [place] | | | | | | [address] | | | +--------+ + + + [...]
--- OUTSIDE RECORDS SUMMARY | ~2020-07-04 | XMS | Encounter Summary ---
Demographics + + + | Address | [address] | | | [place] [address] | + + + | Home Phone [...] Providers + +------+ + | Care Head Of Digital Advertising & Integration Name | Role | Phone | + +------+ + | Justo Vazquez MD | PCP | | + +------+ + Encounter Details +--------+ + + + + | Date | Type | Department | Care Team | Description | +--------+ + + + + | 12/27/ | Ancillary | [facility] | Alex Sanchez, | | | 2018 | Orders | Pain Center at | ,PhD [address] | | | | | [facility] | [address] | | | | | [address] | [place], [place] | | | | | [place] for [facility] | [address] | | | | | and Healing, | [phone] | | | | | | | | | | | Floor [place], [place] | | | | | | [address] | | | | | | [phone] | | | +--------+ + + + [...]
--- OUTSIDE RECORDS SUMMARY | ~2020-07-04 | XMS | Encounter Summary ---
Demographics + + + | Address | [address] | | | [place] [address] | + + + | Home Phone [...] Providers + +------+ + | Care Associate Director Of Nursing Name | Role | [...] | | | | | Procedures | [place], [place] | | | | | | MR | [id number] | | | | | | ENTEROGRAPHY [...] | | | | | Procedures | [place], [place] | | | | | | MR | [id number] | | | | | | ENTEROGRAPHY [...] | 2017 | Encounter | Services at [facility] | [address] | | | | | [address] | [place], [place] | | | | | Giuliana Maldonado [address] | [address] | | | | | [facility] | [phone] | | | | | [place], [place] | | | | | | [address] | | | | | | [phone] | | | +--------+ + + + [...]
--- OUTSIDE RECORDS SUMMARY | ~2020-07-04 | XMS | Encounter Summary ---
Demographics + + + | Address | [address] | | | [place] [address] | + + + | Home Phone [...] + +------+ + | Care Configuration Management Advisor Name | Role | Phone | [...] | pain, | [address] | [address] | | | | | unspecified | [address] | [address] | | | | | abdominal | Rd | [place], [place] | | | | | location | [facility] [place] | [address] | | | | | Pain of | [address] | Phone: | | | | | upper | | [phone] | | | | | abdomen | | Fax: | | | | | Complex | | [phone] | | | | | regional | [...] | | | | | | | LOKIE ENGINEER | | | +--------+---------+ + + + + Reason for Visit + + + | Reason | Comments | + + + | Procedure | | + + + Encounter Details +--------+ + + + + | Date | Type | Department | Care Team | Description | +--------+ + + + + | 08/30/ | Telephone | [facility] | Ilene Bright, | Procedure | | 2017 | | Pain Center at | ENGRAVED ROLLER INSPECTOR [address] | | | | | [facility] | [place], [place] | | | | | [address] | [address] | | | | | [facility] | [phone] | | | | | and Healing, | | | | | | Building | | | | | | Floor [place], [place] | | | | | | [address] | | | | | | [phone] | | | +--------+ + + + [...]
--- OUTSIDE RECORDS SUMMARY | ~2020-07-04 | XMS | Encounter Summary ---
Demographics + + + | Address | [address] | | | [place] [address] | + + + | Home Phone [...] Team Providers + +------+ + | Care Informatics Pharmacist Name | Role | Phone | + +------+ + | Justo Vazquez MD | PCP | | + +------+ + Encounter Details +--------+ + + + + | Date | Type | Department | Care Team | Description | +--------+ + + + + | 03/18/ | Telephone | [facility]ive [facility] | Kenny Gaspar MD | | | 2017 | | [place] [address] [address] | | | | | | [address] [facility] | | | | | | for Health and | | | | | | [facility], Building 2 | | | | | | [place], [place] | | | | | | [address] | | | | | | [phone] | | | +--------+ + + + [...]
--- OUTSIDE RECORDS SUMMARY | ~2020-07-04 | XMS | Encounter Summary ---
Demographics + + + | Address | [address] | | | [place] [address] | + + + | Home Phone [...] Pain Medicine | Diagnoses | Chasity, | Laundry Machine Operator Chh1 | | | | / Pain | Abdominal | MD Kenny | [address] | | | | Management | pain, | [address] | [facility] | | | | | unspecified | [facility] | for Health | | | | | location | Rd | and Healing, | | | | | Procedures | [place], [place] | Building | | | | | CONSULT TO | [address] | 1,15th Floor | | | | | PAIN | | [place], [place] | | | | | MANAGEMENT | | [address] | | | | | | | Phone: | | | | | | | [phone] | | | | | | | Fax: | | | | | | | [phone] | +--------+--------+ + + + + Reason [...] Abdominal | | 2016 | | Center [place] [address] [address] | | pain | | | | [address] [facility] | | | | | | for Health and | | | | | | Healing, [facility] 2 | | | | | | [place], [place] | | | | | | [address] | | | | | | [phone] | | | +--------+ + + + [...]
--- OUTSIDE RECORDS SUMMARY | ~2020-07-04 | XMS | Encounter Summary ---
Demographics + + + | Address | [address] | | | [place] [address] | + + + | Home Phone [...] Team Providers + +------+ + | Care Fashion Patternmaker Name | Role | Phone | + [...] + + | 02/21/ | Telephone | [facility] | Alex Sanchez, | Medication Refill | | 2018 | | Pain Center at | ,PhD [address] | Request (ketamine- | | | | [facility] | [address] | mail script to | | | | [address] | [place], [place] | patient) | | | | [facility] | [address] | | | | | and Healing, | [phone] | | | | | | | | | | | Floor [place], [place] | | | | | | [address] | | | | | | [phone] | | | +--------+ + + + [...]
--- OUTSIDE RECORDS SUMMARY | ~2020-07-04 | XMS | Encounter Summary ---
Demographics + + + | Address | [address] | | | [place] [address] | + + + | Home Phone [...] Team Providers + +------+ + | Care Video Game Animator Name | Role | Phone | + [...] CENTER | | | | | | [address] | | | | | | Giuliana Roberson | | | | | | [facility] | | | | | | [place], [place] | | | | | | [address] | | | | | | [phone] | | | +--------+ + + + [...]
--- OUTSIDE RECORDS SUMMARY | ~2020-07-04 | XMS | Encounter Summary ---
Demographics + + + | Address | [address] | | | [place] [address] | + + + | Home Phone [...] Providers + +------+ + | Care It Security Engineer Name | Role | Phone | [...] Rd | | | | | | [place], [place] | | | | | | [address] | | | +--------+ + + + [...]
--- OUTSIDE RECORDS SUMMARY | ~2020-07-04 | XMS | Encounter Summary ---
Demographics + + + | Address | [address] | | | [place] [address] | + + + | Home Phone [...] Team Providers + +------+ + | Care Taxation Accountant Name | Role | Phone | + [...] | | 2015 | | Center at [facility] [address] | MD Melissa | | | | | [address] [facility] | | | | | | for Health and | | | | | | [facility], Building 2 | | | | | | [place], [place] | | | | | | [address] | | | | | | [phone] | | | +--------+ + + + [...]
--- OUTSIDE RECORDS SUMMARY | ~2020-07-04 | XMS | Encounter Summary ---
Demographics + + + | Address | [address] | | | [place] [address] | + + + | Home Phone [...] Providers + +------+ + | Care Legal Investigator Name | Role | Phone | [...] | Diagnoses | Beulah | Edu Pt Slagger | | | | Therapy | CRPS | Janak Martinez MD | Ch[address]1 [address] | | | | | (complex | [address] | | | | | regional | [address] | Mailcode: | | | | | pain | Mailstop | [facility] | | | | | syndrome), | [phone] | for Health | | | | | lower limb | [place], [place] | and Healing, | | | | | Gait | [address] | Building 1 | | | | | disturbance | Phone: | [place], [place] | | | | | Muscle pain | [phone] | [address] | | | | | Procedures | Fax: | Phone: | | | | | PHYSICAL | [phone] | [phone] | | | | | THERAPY | [...] regional pain | | | | [facility] | [place] [address] | syndrome), lower | | | | [address] | [phone] | limb (Primary Dx) | | | | [facility] | | | | | | and Healing, | | | | | | Building 1, 1st | | | | | | Floor [place], [place] | | | | | | [address] | | | | | | [phone] | | | +--------+---------+ + + + [...] might be different f rom the original. [id number] BRODY FARAH Date of : 1990 Start of care: 02/14/2012 Date of onset: 02/14/2012 Referring/Attending Practitioner: Janak Riojas MD . Primary/Referral Diagnosis/ICD-9: 355.71B CRPS (complex regional pain syndrome), lower limb Insurance: Payor: [facility] Plan: BCBS OUT OF STATE Product Type: PP O Service period from: 02/14/2012 to: 08/12/2012 Number visits used/authorized: 05/25 [facility] PHYSICAL THERAPY PROGRESS NOTE SUBJECTIVE: Age: 21 [...] any change in their status. Guillermo Sanon [facility] Outpatient Rehabilitation Services Mailcode: Ch3p [address] [facility], 1st Floor [facility] [address] documented in this encounter Plan of Treatment Not on filedocumented as of this encounter Procedures + +--------+ + + + | Procedure Name | Priori | Date/Time | Associated Diagnosis | Comments | | | ty | | | | + +--------+ + + + | [place] MANUAL THER | Routin | 06/09/2012 | CRPS (complex | | | TECH,1+REGIONS,EA 15 | e | 2:46 PM | regional pain | | | MIN | | PDT | syndrome), lower | | | | | | limb | | + +--------+ + + + | [place] THERAPEUTIC | Routin | 06/09/2012 | CRPS [...]
--- OUTSIDE RECORDS SUMMARY | ~2020-07-04 | XMS | Encounter Summary ---
Demographics + + + | Address | [address] | | | [place] [address] | + + + | Home Phone [...] Providers + +------+ + | Care Engineering And Scientific Programmer Name | Role | Phone | [...] + + | 02/21/ | Telephone | [facility] | Alex Sanchez, | Medication Refill | | 2018 | | Pain Center at | ,PhD [address] | Request (ketamine- | | | | [facility] | [facility] [address] | mail script to | | | | [address] | [place], [place] | patient) | | | | [facility] | [address] | | | | | and Healing, | [phone] | | | | | | | | | | | Floor [place], [place] | | | | | | [address] | | | | | | [phone] | | | +--------+ + + + [...]
--- OUTSIDE RECORDS SUMMARY | ~2020-07-04 | XMS | Encounter Summary ---
Demographics + + + | Address | [address] | | | [place] [address] | + + + | Home Phone [...] Providers + +------+ + | Care Fountain Waitress/Waiter Name | Role | Phone | + +------+ + | Justo Vazquez MD | PCP | | + +------+ + Encounter Details +--------+ + + + + | Date | Type | Department | Care Team | Description | +--------+ + + + + | 04/23/ | Pharmacy | [facility] | | | | 2019 | Visit | & [facility]acy | | | | | | [address] | | | | | | Mailcode: [place] | | | | | | [facility] and | | | | | | Healing, Building 1 | | | | | | [place], [place] | | | | | | [address] | | | | | | [phone] | | | +--------+ + + + [...]
--- OUTSIDE RECORDS SUMMARY | ~2020-07-04 | XMS | Encounter Summary ---
Demographics + + + | Address | [address] | | | [place] [address] | + + + | Home Phone [...] Team Providers + +------+ + | Care American Sign Language Interpreter Name | Role | Phone [...] Medical Records | | 2017 | | [place] [facility] [address] | MD Melissa | Review | | | | [address] [facility] | | | | | | for Health and | | | | | | [facility] 2 | | | | | | [place], [place] | | | | | | [address] | | | | | | [phone] | | | +--------+ + + + [...]
--- OUTSIDE RECORDS SUMMARY | ~2020-07-04 | XMS | Encounter Summary ---
Demographics + + + | Address | [address] | | | [place] [address] [...] Author + + + | Author | [facility] | | | and [place] | + + + | Organization | [facility] | | | [...] [place] | | | | | [address] | | + + + + + | Bryant Farah | ECON | Unknown | | + + + + + Care Team Providers + +------+ + | Care Fire Control Technician G Name | Role | Phone | + +------+ + PCP | Unavailable | + +------+ + Encounter Details +--------+ + + + + | Date | Type | Department | Care Team | Description | +--------+ + + + + | 06/24/ | Hospital | [facility] | | | | 1998 | Encounter | MED CTR XRAY [address] | | | | | | [address]andana Garcia | | | | | | [place] [address] | | | | | | [phone] | | | +--------+ + + + [...]
--- OUTSIDE RECORDS SUMMARY | ~2020-07-04 | XMS | Encounter Summary ---
Demographics + + + | Address | [address] | | | [place] [address] | + + + | Home Phone [...] Providers + +------+ + | Care Bakery Worker Conveyor Line Name | Role | Phone | [...] | | [address] [facility] for | [place], [place] | | | | | Health and Healing, | [address] | | | | | | [phone] | | | | | [place], [place] | | | | | | [address] | | | | | | [phone] | | | +--------+ + + + [...] Note | + + | Service Account, [employer] Res In Interface - 03/08/2018 9:42 AM [...]
--- OUTSIDE RECORDS SUMMARY | ~2020-07-04 | XMS | Encounter Summary ---
Demographics + + + | Address | [address] | | | [place] [address] | + + + | Home Phone [...] Providers + +------+ + | Care Plastic Manager Name | Role | Phone | [...] | | | [address] | [place], [place] | | | | | [place] for [facility] | [address] | | | | | and Healing, | [phone] | | | | | | | | | | | Floor [place], [place] | | | | | | [address] | | | | | | [phone] | | | +--------+ + + + [...]
--- OUTSIDE RECORDS SUMMARY | ~2020-07-04 | XMS | Encounter Summary ---
Demographics + + + | Address | [address] | | | [place] [address] | + + + | Home Phone [...] Team Providers + +------+ + | Care Sample Collector Name | Role | Phone | [...] | Diagnoses | Beulah | Edu Pt Coverage Specialist Rn | | | | Therapy | CRPS | Janak Martinez MD | [address] | | | | | (complex | [address] | | | | | regional | [address] | Mailcode: | | | | | pain | Mailstop | [facility] | | | | | syndrome), | [phone] | for Health | | | | | lower limb | [place], [place] | and Healing, | | | | | Gait | [address] | Building 1 | | | | | disturbance | Phone: | [place], [place] | | | | | Muscle pain | [phone] | [address] | | | | | Procedures | Fax: | Phone: | | | | | PHYSICAL | [phone] | [phone] | | | | | THERAPY | [...] | | | | [place] | [place] [address] | syndrome), lower | | | | [address] | [phone] | limb (Primary Dx) | | | | [facility] | | | | | | and Healing, | | | | | | Building 1, | | | | | | Floor [place], [place] | | | | | | [address] | | | | | | [phone] | | | +--------+---------+ + + + [...] might be different f rom the original. [id number] BRODY FARAH Date of : 1990 Start of care: 02/14/2012 Date of onset: 02/14/2012 Referring/Attending Practitioner: Janak Riojas MD . Primary/Referral Diagnosis/ICD-9: 355.71B CRPS (complex regional pain syndrome), lower limb Insurance: [facility] Plan: BCBS OUT OF STATE Product Type: PP O Service period from: 02/14/2012 to: 08/12/2012 Number visits used/authorized: 03/25 [facility] PHYSICAL THERAPY PROGRESS NOTE SUBJECTIVE: Age: 21 [...] status. Guillermo Sanon [facility] Outpatient Rehabilitation Services Mailcode: Ch3p [address] [facility] [place], [address] [place] [address] documented in this encounter Plan of Treatment Not on filedocumented as of this encounter Procedures + +--------+ + + + | Procedure Name | Priori | Date/Time | Associated Diagnosis | Comments | | | ty | | | | + +--------+ + + + | [place] MANUAL THER | Routin | 06/05/2012 | CRPS (complex | | | TECH,1+REGIONS,EA 15 | e | 5:15 PM | regional pain | | | MIN | | PDT | syndrome), lower | | | | | | limb | | + +--------+ + + + | [place] THERAPEUTIC | Routin | 06/05/2012 | CRPS [...]
--- OUTSIDE RECORDS SUMMARY | ~2020-07-04 | XMS | Encounter Summary ---
Demographics + + + | Address | [address] | | | [place] [address] | + + + | Home Phone [...] Providers + +------+ + | Care Regional Otr Company Driver Name | Role | Phone | [...] | | | | | Constipation | [address] | [address] | | | | | , | [address] | [place] for | | | | | unspecified | [address] | Health and | | | | | constipation | [place], [place] | Healing, | | | | | type | [address] | Building 2 | | | | | Abdominal | | [place], [place] | | | | | pain, | | [address] | | | | | unspecified | | Phone: | | | | | location | | [phone] | | | | | Procedures | | Fax: | | | | | CONSULT TO | | [phone] | | | | | GI PROCEDURE | | | | | | | UNIT: | | | | | | | COLONOSCOPY | | | | | | | CA | | | | | | | [...] | | 2015 | | Center at [facility] [address] | MD Melissa | Vomiting (Bile) | | | | [address] [facility] | | | | | | for Health and | | | | | | Healing, Building 2 | | | | | | [place], [place] | | | | | | [address] | | | | | | [phone] | | | +--------+ + + + [...]
--- OUTSIDE RECORDS SUMMARY | ~2020-07-04 | XMS | Encounter Summary ---
Demographics + + + | Address | [address] | | | [place] [address] | + + + | Home Phone [...] Team Providers + +------+ + | Care Dragline Mechanic Name | Role | Phone | [...] Pain Medicine | Diagnoses | Chasity | [facility] | | | | / Pain | Abdominal | MD Kenny | [address] | | | | Management | pain, | [address] | [facility] | | | | | unspecified | [facility] | for Health | | | | | location | Rd | and Healing, | | | | | Procedures | [place], [place] | Building | | | | | CONSULT TO | [address] | 1,15th Floor | | | | | PAIN | | [place], [place] | | | | | MANAGEMENT | | [address] | | | | | | | Phone: | | | | | | | [phone] | | | | | | | Fax: | | | | | | | [phone] | +--------+--------+ + + + + Encounter Details +--------+---------+ + + + | Date | Type | Department | Care Team | Description | +--------+---------+ + + + | 07/11/ | Office | [facility] Comprehensive | Ilene Bright, | Pain of upper | | 2017 | Visit | Pain Center at | HUMAN RESOURCES MGR [address] | abdomen (Primary | | | | [place] | [place], [place] | Dx); Intractable | | | | [address] | [address] | cyclical vomiting | | | | [facility] | [phone] | with nausea; | | | | and Healing, | | Irritable bowel | | | | Building | | syndrome with | | | | Floor [place], [place] | | constipation; | | | | [address] | | Complex regional | | | | [phone] | | pain syndrome type 1 | [...] and determine next steps. Ilene Childs DNP, HUM[employer] RESOURCES MGR-C Adult Pain Service /[facility] [address] [place] [address] documented in this encounter Progress Notes Ilene Bright FNP - 07/11/2017 1:35 PM PDTFormatting of this note might be different fr om the original. [facility] Return Visit Date: 07/11/2017 Chief Complaint Patient presents with Abdominal pain Back pain History of Present Illness: Tracie Farah is a 27 year old female, whose last appoi ntment at the [facility] was April 25, 2017, [...] [facility] the [facility]. She has also [...] her abdominal pain an d associated symptoms. [facility] QUESTIONNAIRE BRIEF PAIN 07/11/2017 Please rate [...] has interfered with your sleep : 5 CREPE SOLE W[employer] BRUSHER Questionnaire Follow-up Patient 07/11/2017 Please describe the [...] History Social History Narrative Single. Goes to [employer] with a light load. Has been working at [employer], can' t work on [employer]. Has roommates. Allergies Allergen Reactions Morphine [...] by physician. Concentration is 150mg/mL. Compounded by [facility] ) LAMOTRIGINE 200 MG TABLET Take [...] GRAM-5.86 GRAM SOLUTION Take as directed by [facility] Dig[facility]ive [facility]- 2 gallon bowel prep [...] and summary of old medical records (source: [employer]), as summarized in the body of the [...] Shantel Salinas, am functioning as a medical billing clerk for TERESA Clrak DNP-C I have reviewed and verified the above scribed note of my visit with this patient as record ed by Shantel Salinas. Ilene Childs DNP, TERESA-C Adult Pain Service /[facility] [address] [place] [address] Addendum: I paged Dr. Les Gaspar. He was out of the clinic, I spoke with the covering provider and sha dandre Tracie's request for food allergy testing. Since Tracie thinks her pain and vomiting may b e triggered by gluten, covering provided ordered appropriate workup, which I communicated to Tracie and the the lab in [place], [place]. She will followup with me and GI once these results are available. Ilene Childs DNP, HUMAN RESOURCES MGR-C Adult Pain Service /[facility] [address] [place] [address] documented in this e ncounter Plan of [...]
--- OUTSIDE RECORDS SUMMARY | ~2020-07-04 | XMS | Encounter Summary ---
Demographics + + + | Address | [address] | | | [place] [address] [...] Team Providers + +------+ + | Care Medicare Contact Specialist Name | Role | Phone | + +------+ + | Allegra Chuadhary | PCP | | + +------+ + [...] | | | | | Constipation | [address] | [address] | | | | | , | [address] | [place] for | | | | | unspecified | [address] | Health and | | | | | constipation | [place], [place] | Healing, | | | | | type | [address] | Building 2 | | | | | Abdominal | | [place], [place] | | | | | pain, | | [address] | | | | | unspecified | | Phone: | | | | | location | | [phone] | | | | | Procedures | | Fax: | | | | | CONSULT TO | | [phone] | | | | | GI PROCEDURE [...] | | 2015 | | Center at [facility] [address] | MD Melissa | Vomiting (Bile) | | | | [address] [facility] | | | | | | for Health and | | | | | | Healing, Building 2 | | | | | | [place], [place] | | | | | | [address] | | | | | | [phone] | | | +--------+ + + + [...]
--- OUTSIDE RECORDS SUMMARY | ~2020-07-04 | XMS | Encounter Summary ---
Demographics + + + | Address | [address] | | | [place] [address] | + + + | Home Phone [...] Team Providers + +------+ + | Care Geotechnical Operating Engineer Name | Role | Phone | [...] 2018 | Encounter | Lab at [facility] [address] | ,PhD [address] [facility] | | | | | [facility] for | [facility] | | | | | Health and [facility], | [place], [place] | | | | | [place] [address] [facility] | [address] | | | | | Floor [place], [place] | [phone] | | | | | [address] | | | | | | [phone] | | | +--------+ + + + [...] Harding MD Dictation | | | initiated: aVrinder Harding MD 06/12/2018 12:14 PM | | [...]
--- OUTSIDE RECORDS SUMMARY | ~2020-07-04 | XMS | Encounter Summary ---
Demographics + + + | Address | [address] | | | [place] [address] | + + + | Home Phone [...] Providers + +------+ + | Care Corporate Webmaster Name | Role | Phone | + [...] | Diagnoses | Beulah | Edu Pt Ultrasound Supervisor | | | | Therapy | CRPS | Janak Martinez MD | [address] | | | | | (complex | [address] | | | | | regional | [address] | Mailcode: | | | | | pain | Mailstop | [facility] | | | | | syndrome), | [phone] | for Health | | | | | lower limb | [place], [place] | and Healing, | | | | | Gait | [address] | Building 1 | | | | | disturbance | Phone: | [place], [place] | | | | | Muscle pain | [phone] | [address] | | | | | Procedures | Fax: | Phone: | | | | | PHYSICAL | [phone] | [phone] | | | | | THERAPY | [...] | | | | [place] | [place] [address] | syndrome), lower | | | | [address] | [phone] | limb (Primary Dx) | | | | [facility] | | | | | | and Healing, | | | | | | Building 1, | | | | | | Floor [place], [place] | | | | | | [address] | | | | | | [phone] | | | +--------+---------+ + + + [...] might be different f rom the original. [id number] BRODY FARAH Date of : 1990 Start of care: 02/14/2012 Date of onset: 02/14/2012 Referring/Attending Practitioner: Janak Riojas MD . Primary/Referral Diagnosis/ICD-9: 355.71B CRPS (complex regional pain syndrome), lower limb Insurance: Payor: [facility] [employer] [facility] Plan: BCBS OUT OF STATE Product Type: PP O Service period from: 02/14/2012 to: 08/12/2012 Number visits used/authorized: 11/25 [facility] PHYSICAL THERAPY INITIAL EVALUATION SUBJECTIVE: [...] developed CRPS in 2004 after a fabi meily surgery. Ever since then she had this [...] pain relief. Admitted to the inpatient [facility] program for 1 month in the [...] Diagnostic evaluation: Records from CRPS program at [facility]. Suggest three phase bone sca n. [...] the psychologists here at the [facility]. 2.2 Physical therapy can reduce pain and improve functional status. Suggest Guillermo Sanon. 3. Medication suggestions: 3.1 Continue titrating up duloxetine. 3.2 As for any patient being managed with chronic opioids, we do recommend that the patient have a signed [facility] Material Risk Notice, agree to [...] a significant factor in ongoing pain, temperature ulke nges, edema, and other changes. We discussed [...] and hemr oidectomy. Social History: lives in [place], [...] provided with a token and bocanegra for [facility] site. Treatment began: 1345hrs Treatment ended: 1430hrs Manual therapy: 0min Therapeutic exercise: 15 min ASSESSMENT: pt presents with 10-year history of ankle pain post trauma and multiple surgeri es. She thinks she developed CRPS in 2004. She was diagnosed with CRPS and spent a month in the program at [facility] working through aggressive desensitization and activation which prov ided no lasting benefit. She lives in [place], is going to school, and ambulates [...] She can work with her PT in [place]. CLINICAL PRIORITIES: 1-follow up with Dr [...] in their status. Guillermo Sanon [facility] Outpatient Rehabilitation Services Mailcode: Ch3p [address] [facility] [place], [address] [facility] [address] documented in this encounter Plan of [...]
--- OUTSIDE RECORDS SUMMARY | ~2020-07-04 | XMS | Encounter Summary ---
Demographics + + + | Address | [address] | | | [place] [address] [...] Team Providers + +------+ + | Care Insole Department Worker Name | Role | Phone | [...] on | Pain Center at | [address] [facility] | evaluation (No | | | | [facility] | [facility] [id number] | evidence of drug | | | | [address] | [place], [place] | abuse) | | | | [facility] | [address] | | | | | and Healing, | [phone] | | | | | [facility] | | | | | | Floor [place], [place] | | | | | | [address] | | | | | | [phone] | | | +--------+ + + + [...]
--- OUTSIDE RECORDS SUMMARY | ~2020-07-04 | XMS | Encounter Summary ---
Demographics + + + | Address | [address] | | | [place] [address] | + + + | Home Phone [...] Providers + +------+ + | Care Foam Rubber Curer Name | Role | Phone | + +------+ + | Justo Vazquez MD | PCP | | + +------+ + Encounter Details +--------+------+ + + + | Date | Type | Department | Care Team | Description | +--------+------+ + + + | 12/14/ | Lab | Laboratory at [facility] | | Complex regional | | 2018 | | [address] | | pain syndrome type 1 | | | | Center for [facility] | | of left lower | | | | and Healing, | | extremity; Muscle | | | | Building 2 | | pain | | | | [place], [place] | | | | | | [address] | | | | | | [phone] | | | +--------+------+ + + + [...] + + + + | [facility] | [address] [facility] [address] [address] | [place] [address] | | | [address] | GUILLERMO [...]
--- OUTSIDE RECORDS SUMMARY | ~2020-07-04 | XMS | Encounter Summary ---
Demographics + + + | Address | [address] | | | [place] [address] | + + + | Home Phone [...] Providers + +------+ + | Care Maintenance Department Technician Name | Role | Phone | [...] | | | | | Ave Mailcode: [facility] | [place], [place] | | | | | [facility] | [address] | | | | | Health and Healing, | [phone] | | | | | [place] [address] | | | | | | [place], [place] | | | | | | [address] | | | | | | [phone] | | | +--------+ + + + [...] Discharge Instructions Instructions Darlin Doyle RN - 12/14/2016[place] Care Instructions after Colonoscopy You may resume [...] on weekends and holidays call the Hospital Portable [facility] Line [facility]er toll free 1- [phone] Ext. [phone] or and have the GI doctor lamination operator paged. The provider who performed your procedure [...] Farah is a 26 y.o. female MR# [id number] presents today for colonoscopy NPO since midnight [...]
--- OUTSIDE RECORDS SUMMARY | ~2020-07-04 | XMS | Clinical Summary ---
Demographics + + + | Address | [address] | | | [place] [address] | + + + | Home Phone | | + + + | Preferred Language | Unknown | + + + | Marital Status | Single | + + + | Advent Affiliation | 1073 | + + + | Race | White | + + + | Ethnic Group | Not or | + + + Author + + + | Author | [facility] | | | and [place] | + + + | Organization | [facility] | | [...] [place] | | | | | [address] | | + + + + + | Bryant Farah | ECON | Unknown | | + + + + + Care Team Providers + +------+ + | Care Apprentice Funeral Director Name | Role | Phone | [...] +--------+ +---------+--------+ | MEDICARE | MEDICA | [id number] | 07/15/20 | [phone] | | Medica | | | RE | | 15-Pre | 5 | | re | | | PART A | | sent | | | | | | AND B | | | | | | + +--------+ +--------+ +---------+--------+ | MEDICAID [place] | MEDICA | [id number] | | [phone] | | Medica | [...] Self | [birth year] | [address] | | Anika | al/Fam | | 1990 | [phone] | [place] [address] | | | evita | | | 6 (Home) | | + +--------+ +--------+ + +"
--- OUTSIDE RECORDS SUMMARY | ~2020-07-04 | XMS | Encounter Summary ---
Demographics + + + | Address | [address] | | | [place] [address] | + + + | Home Phone [...] Team Providers + +------+ + | Care Concert Manager Name | Role | Phone | + +------+ + | Justo Vazquez MD | PCP | | + +------+ + Encounter Details +--------+ + + + + | Date | Type | Department | Care Team | Description | +--------+ + + + + | 05/05/ | Documentati | [facility] Comprehensive | Alex Sanchez, | | | 2018 | on | Pain Center at | ,PhD [address] | | | | | [facility] | [address] | | | | | [address] | [place], [place] | | | | | [place] [facility] | [address] | | | | | and Healing, | [phone] | | | | | | | | | | | Floor [place], [place] | | | | | | [address] | | | | | | [phone] | | | +--------+ + + + [...]
--- OUTSIDE RECORDS SUMMARY | ~2020-07-04 | XMS | Encounter Summary ---
Demographics + + + | Address | [address] | | | [place] [address] | + + + | Home Phone [...] Team Providers + +------+ + | Care Charge Manager Name | Role | Phone | [...] | Pain Center at | ,PhD [address] [facility] | sig) | | | | [facility] | [address] | | | | | [address] | [place], [place] | | | | | [facility] | [address] | | | | | and Martina, | [phone] | | | | | [facility] | | | | | | Floor [place], [place] | | | | | | [address] | | | | | | [phone] | | | +--------+ + + + [...]
--- OUTSIDE RECORDS SUMMARY | ~2020-07-04 | XMS | Encounter Summary ---
Demographics + + + | Address | [address] | | | [place] [address] | + + + | Home Phone [...] Team Providers + +------+ + | Care Ground Equipment Mechanic Name | Role | Phone | [...] | Request (ketamine) | | | | [facility] | [address] | | | | | [address] | [place], [place] | | | | | [facility] | [address] | | | | | and Healing, | [phone] | | | | | | | | | | | Floor [place], [place] | | | | | | [address] | | | | | | [phone] | | | +--------+ + + + [...]
--- OUTSIDE RECORDS SUMMARY | ~2020-07-04 | XMS | Encounter Summary ---
Demographics + + + | Address | [address] | | | [place] [address] | + + + | Home Phone [...] Team Providers + +------+ + | Care Kick Press Setter Name | Role | Phone | [...] | Diagnoses | Beulah | Edu Pt Respite Care Provider | | | | Therapy | CRPS | Janak Martinez MD | [address] | | | | | (complex | [address] | | | | | regional | [address] | Mailcode: | | | | | pain | Mailstop | [facility] | | | | | syndrome), | [id number] | for Health | | | | | lower limb | [place], [place] | and Healing, | | | | | Gait | [address] | [address] | | | | | disturbance | Phone: | [place], [place] | | | | | Muscle pain | [phone] | [address] | | | | | Procedures | Fax: | Phone: | | | | | PHYSICAL | [phone] | [phone] | | | | | THERAPY | [...] | | | | [address] | [place] [address] | syndrome), lower | | | | [address] | [phone] | limb (Primary Dx) | | | | [facility] | | | | | | and Healing, | | | | | | Building 1, | | | | | | Floor [place], [place] | | | | | | [address] | | | | | | [phone] | | | +--------+---------+ + + + [...] might be different f rom the original. [id number] BRODY FARAH Date of : 1990 Start of care: 02/14/2012 Date of onset: 02/14/2012 Referring/Attending Practitioner: Janak Riojas MD . Primary/Referral Diagnosis/ICD-9: 355.71B CRPS (complex regional pain syndrome), lower limb Insurance: Payor: [facility] Plan: BCBS OUT OF STATE Product Type: PP O Service period from: 02/14/2012 to: 08/12/2012 Number visits used/authorized: 12/26 [facility] PHYSICAL THERAPY PROGRESS NOTE SUBJECTIVE: Age: 21 y.o. Sex: female Chief complaint: No chief complaint on file. 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 She is doing much better ov [facility], possibly because she finished school and so has less stress. She stopped using crutch es in early April (18 days ago) which is less stressful. Now she is working at [employer] 2-3 hours per week, and spends a [...] sometimes pain meds. Social History: lives in [place], 22 years old, not working [...] or concerns about therapy: she lives in [place]. She is r equesting family [...] change in their status. Guillermo Sanon MSPBren [facility] Outpatient Rehabilitation Services Mailcode: Ch3p [address] [facility], [address] [facility] [address] documented in this encounter Plan of Treatment Not on filedocumented as of this encounter Procedures + +--------+ + + + | Procedure Name | Priori | Date/Time | Associated Diagnosis | Comments | | | ty | | | | + +--------+ + + + | [place] THERAPEUTIC | Routin | 05/03/2012 | CRPS [...]
--- OUTSIDE RECORDS SUMMARY | ~2020-07-04 | XMS | Encounter Summary ---
Demographics + + + | Address | [address] | | | [place] [address] | + + + | Home Phone [...] Team Providers + +------+ + | Care Game Developer Name | Role | Phone | [...] + + | 12/05/ | Surgery | [facility] INTRA [facility] | Alex Sanchez, | BILATERAL DORSAL | | 2019 | | [facility] for [facility] | ,PhD [address] [facility] | ROOT GANGLION SPINAL | | | | and Healing Surgery | [address] | CORD STIMULATOR | | | | Center Admitting | [place], [place] | IMPLANT LUMBAR; | | | | Desk Located on the | [address] | POSTERIOR | | | | 4th floor [address] | [phone] | | | | | [address] [place], | | | | | | [place] [address] | | | +--------+---------+ + + + [...] s/p successful DRG trial lead system with [employer] on 09/25/2018. No changes in H&P, [...] NOTE Date: December 05, 2018 Location: [facility] [place] | | | Tracie Farah [id number] :1990, presents to clinic | | | for: Dorsal root ganglion stimulator implant PROCEDURE: Dorsal | | | root ganglion stimulator implant PRE-OPERATIVE DIAGNOSIS: Complex | | | regional Pain syndrome type 1 of left lower extremity | | | POST-OPERATIVE DIAGNOSIS: Complex regional Pain syndrome type 1 of | | | left lower extremity ATTENDING PHYSICIAN: Alex Sanchez | | | BAND SAW FILER: Arben Valerio MD ANESTHESIA: sedation by IVIS Cole | | | Carmen, supervised by studio engineer Ilir Valdes. | | | FINDINGS: Appropriate [...] Ms. 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 A test stimulation was performed and once [...] recovery. Images were saved, and sent to [employer]. | | | Alex Sanchez (attending) was present for the entire procedure. | | | Arben Valerio MD I was present for the entire procedure | | | (spinal cord stimulator implantation with DRG leads at left L4 and | | | L5) and all bocanegra elements of this visit. I reviewed the | | | documentation of the other [facility] providers and concur with | | | Iman's findings. I edited his note. Alex Sanchez, | | | ,PhD Export Administrator Anesthesiology and Pain Management | | | [facility] | | + + + HCG [...] + | JOSE ANTONIO MIN | [address] [facility] [address] | [place] [address] | | | OF CARE TESTS | [...]
--- OUTSIDE RECORDS SUMMARY | ~2020-07-04 | XMS | Encounter Summary ---
Demographics + + + | Address | [address] | | | [place] [address] | + + + | Home Phone [...] Team Providers + +------+ + | Care Conductor Symphonic Orchestra Name | Role | Phone | + [...] | | | Spasticity | Ave | [facility] [place] | | | | | Procedures | [facility] [place] | [address] | | | | | CONSULT TO | [address] | Phone: | | | | | PAIN | Phone: | [phone] | | | | | MANAGEMENT | [phone] | Fax: | | | | | | Fax: | [phone] | | | | | | [phone] | | +--------+---------+ + + + + [...] | | MD Celia | MD Brendan [address] | | | | | Fibromyalgia | [address] | [address] | | | | | Spasticity | Ave | [address] | | | | | Epigastric | [place], [place] | Rd [place], | | | | | pain | [address] | [place] | | | | | Procedures | Phone: | [address] | | | | | REQUEST TO | [phone] | Phone: | | | | | SURGERY | Fax: | [phone] | | | | | FAMILY PHYSICIAN | [phone] | Fax: | | | | | MO INJECT | | [phone] | | | | | TRIGGER | | | | | | | POINT, 1 [place] | | | | | | | 2 MO INJECT | | | | | [...] Pain Medicine | Diagnoses | Chasity, | Pouncing Machine Operator Chh1 | | | | / Pain | Abdominal | MD Kenny | [address] | | | | Management | pain, | [address] | [address] Center | | | | | unspecified | [facility] | for Health | | | | | location | Rd | and Healing, | | | | | Procedures | [place], [place] | Building | | | | | CONSULT TO | [address] | 1,15th Floor | | | | | PAIN | | [place], [place] | | | | | MANAGEMENT | | [address] | | | | | | | Phone: | | | | | | | [phone] | | | | | | | Fax: | | | | | | | [phone] | +--------+--------+ + + + + Encounter Details +--------+---------+ + + + | Date | Type | Department | Care Team | Description | +--------+---------+ + + + | 10/11/ | Office | [facility] Comprehensive | Vern Robertson, | Epigastric pain | | 2017 | Visit | Pain Center at | EVENT SPECIALIST FOOD DEMONSTRATOR [address] | (Primary Dx); | | | | [facility] | [place], [place] | Spasticity | | | | [address] | [address] | | | | | [facility] | [phone] | | | | | and Healing, | | | | | | Building | | | | | | Floor [place], [place] | | | | | | [address] | | | | | | [phone] | | | +--------+---------+ + + + [...] true warrior! * Please sign up for [employer]. This is the best way to communicate with me. It will save you time in the long run. The procedure you discussed with your doctor is called: Trigger point injection of abdomina l scar. Please make sure this is scheduled with the Public Stenographer. PRE-PROCEDURE INSTRUCTIONS 1. Please bring a tank driver with you as we may give you medications that impair your ability to drive. This is necessary even if you do not receive sedation. You may take a taxi or ri [employer] if you are accompanied by a responsible [...] or blood thinning medications (other than aspirin), [facility] doctor who is doing your procedure will communicate with the provider who is prescribing y our anticoagulant therapy. If you do not have clear instructions on what to do with your an ticoagulant by 2 weeks before your procedure, please contact [facility] to cl arify your instructions. The phone number for questions or concerns is [phone]. * Consider Lidoderm topical or compound prescription [...] muscle hyper tonicity. * Consider increasing your Venedocia 3 fats. Venedocia-3 fats are precursors to mediators of inflammation [...] oil if approved by your PCP or press department manager. * Eliminate High Fructose Denniston Syrup and Sugar from your diet as [...] review treatment plan. * Follow up with [facility] as needed. [...] NP - 1 12/11/2016 1:15 PM PST [facility] Return Visit Date: 10/11/2017 Chief Complaint Patient presents with Abdominal pain Back pain Foot pain History of Present Illness: Tracie Farah is a 27 year old female, whose last appoi ntment at [facility] was 07/11/17 with TERESA Clark, for a [...] She reports multiple diagnostic tests conducted at [facility] in [place], [place] including barium swallow and Hydrogen breath [...] Torodol shots: only form of symptom relief. 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 Goes to [employer] with a light load. Has been working at [employer], can' t work on crStantumches. Has roommates. Allergies Allergen Reactions Morphine Anaphylaxis [...] by physician. Concentration is 150mg/mL. Compounded by [facility] ( [phone]) LAMOTRIGINE 200 MG TABLET Take 1 tablet [...] GRAM SOLUTION Take as directed by [facility] Digestive [facility]- 2 gallon bowel prep POLYETHYLENE GLYCOL [...] reviewed. - Review old medical records (from [facility]). Pertinent findings include: abdominal surger y [...] review treatment plan. * Follow up with [facility] as needed. IGuillermo am scribing for Vern Robertson NP on 10/11/2017 I have reviewed and verified the above scribed note of my visit with this patient as record ed by Guillermo Hope. Vern Robertson NP [facility] 15TH FLOOR [address] Mail Code: [address] [address] documented in this e ncounter Plan of Treatment Not on filedocumented as of this encounter Visit Diagnoses + + | Diagnosis | + + | Epigastric pain - Primary Abdominal pain, epigastric | + + | Spasticity Abnormal involuntary movements | + + documented in this encounter
--- OUTSIDE RECORDS SUMMARY | ~2020-07-04 | XMS | Encounter Summary ---
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 | FAMILY | Mailstop | | | | | of lower | MEDICINE P | [address] | | | | | limb | [address] | [place], [place] | | | | | | [place], | [address] | | | | | | [place] [address] | Phone: | | | | | | Phone: | [phone] | | | | | | [phone] | Fax: | | | | | | Fax: | [phone] | | | | | | [phone] | | +--------+--------+ + + + + Encounter Details +--------+---------+ + + + | Date | Type | Department | Care Team | Description | +--------+---------+ + + + | 03/17/ | Office | [facility] Comprehensive | Dale Cantu, | CRPS (complex | | 2011 | Visit | Pain Center at | [address] | regional pain | | | | [place] | [address] [id number] | syndrome), lower | | | | [address] | [place], [place] | limb; Adjustment | | | | [place] for [facility] | [address] | reaction; Muscle | | | | and Healing, | [phone] | pain; Gait | | | | [facility] | | disturbance | | | | Floor [place], [place] | | | | | | [address] | | | | | | [phone] | | | +--------+---------+ + + + [...] Pain: After Your Visit", log into your Cleversafe nt at [email or web address]. You can enter G828 in the Stick and Play Library" search box. Not on Impulsivt? Review the MyChart section of your After Visit Summary for directions on liz rea to sign up. 3424-8796 [employer]. Care instructions adapted under license by [facility]. This care instruction is for use with your licensed healthcar e professional. If you have questions about a medical condition or this instruction, always ask your healthcare professional. [employer] disclaims any warranty or liabili ty for your use of this information. Content Version: 9.2.981182; Last Revised: April 29, 2011 Nortriptyline for [...] Pain: After Your Visit", log into your Cleversafe nt at [email or web address]. You can enter G828 in the mCASH" search box. Not on BookingBug? Review the Finderyhart section of your After Visit Summary for directions on ho w to sign up. [phone] [employer]. Care instructions adapted under license by [facility] [place]. This care instruction is for use with your licensed healthcar e professional. If you have questions about a medical condition or this instruction, always ask your healthcare professional. [employer] disclaims any warranty or liabili ty for your use of this information. Content Version: 9.2.605397; Last Revised: April 29, 2011 documented in [...] documented in our notes. DALE CANTU MD Netting Weaver, [facility] Photovoltaic Solar Cell Designer, Pain Medicine Professor, Anesthesiology & Perioperative Medicine [...] her pain. She continues to take 6-8 Bigler per day and 600 mg of ibuprofen [...] and a pain drawing which I reviewed. [facility] Brief Pain Inventory: (ten= worst possible [...] Review of Systems obtained by the [facility] was reviewed. Additional Review of [...] you require any medication refills today? no PLANT PROTECTION OFFICER ROS: 1. Bones, Joints, and Muscles: cramps [...]
--- OUTSIDE RECORDS SUMMARY | ~2020-07-04 | XMS | Encounter Summary ---
Demographics + + + | Address | [address] | | | [place] [address] | + + + | Home Phone [...] Providers + +------+ + | Care Dispatcher Ship Pilot Name | Role | Phone | [...] 2017 | | Center at [facility] [address] | | pain | | | | [address] [facility] | | | | | | for Health and | | | | | | Healing, [address] | | | | | | [place], [place] | | | | | | [address] | | | | | | [phone] | | | +--------+ + + + [...]
--- OUTSIDE RECORDS SUMMARY | ~2020-07-04 | XMS | Encounter Summary ---
Demographics + + + | Address | [address] | | | [place] [address] | + + + | Home Phone [...] Providers + +------+ + | Care Pediatric Psychiatrist Name | Role | Phone | [...] (plan of care) | | | | [facility] | [address] | | | | | [address] | [place], [place] | | | | | [facility] | [address] | | | | | and Healing, | [phone] | | | | | | | | | | | Floor [place], [place] | | | | | | [address] | | | | | | [phone] | | | +--------+ + + + [...]
--- OUTSIDE RECORDS SUMMARY | ~2020-07-04 | XMS | Encounter Summary ---
Demographics + + + | Address | [address] | | | [place] [address] | + + + | Home Phone [...] Providers + +------+ + | Care Film Sorter Name | Role | Phone | [...] + + | 08/07/ | Refill | [facility] Comprehensive | Alex Sanchez, | Refill Request | | 2018 | | Pain Center at | ,PhD [address] | | | | | [facility] | [address] | | | | | [address] | [place], [place] | | | | | [facility] | [address] | | | | | and [place]ina, | [phone] | | | | | [facility] | | | | | | Floor [place], [place] | | | | | | [address] | | | | | | [phone] | | | +--------+--------+ + + + [...]
--- OUTSIDE RECORDS SUMMARY | ~2020-07-04 | XMS | Encounter Summary ---
Demographics + + + | Address | [address] | | | [place] [address] | + + + | Home Phone [...] Providers + +------+ + | Care It Service Manager Name | Role | Phone [...] | | syndrome | [place] | [facility] | | | | | type 1 of | Rd | Rd [place], | | | | | left lower | [place], [place] | [place] | | | | | extremity | [address] | [address] | | | | | Procedures | Phone: | Phone: | | | | | REQUEST TO | [phone] | [phone] | | | | | SURGERY | Fax: | Fax: | | | | | MERCHANDISING TEAM LEAD | [phone] | [phone] | +--------+---------+ + + + + Encounter Details +--------+ + + + + | Date | Type | Department | Care Team | Description | +--------+ + + + + | 12/ | Procedure | [facility] | Alex Sanchez, | Foot pain; Knee | | 2018 | | [address] | ,PhD [address] | pain; Procedure | | | | [facility] | [facility] | | | | | and Healing, | [place], [place] | | | | | | [address] | | | | | Floor [place], [place] | [phone] | | | | | [address] | | | | | | [phone] | | | +--------+ + + + [...] Sonia Key - 09/25/2018 1:00 PM PST [facility] Patient Instructions - Post Interventional Procedure Date: 09/25/2018 Name: Tracie Farah Date of : 1990 Procedure Performed: SCS DRG TRIAL LUMBAR [facility] Procedure Provider: Alex Sanchez MD,PhD If you have any problems you believe are associated with your procedure tonight, Please call the Hospital Web Services Manager, and ask for the Pain Management Consu ltant. If you have problems or questions between 9:00 am and 4:00 pm, Please call the [facility] Nurse Triage Line, . If you [...] symptoms, dressing, SCS function, or chills. During LUMBER TRIMMER open ho urs, call the [facility] ([phone]), after hours call the scoop machine operator at [facility] ([phone]) and ask for the Adult Pain Service cooler conveyor loader. Identify yourself as a [facility] [...] to the pat ient. Aleta Rebollar MD [facility] Comprehensive Pain Center [id number] signed by Sonia Key at 09/25/2018 3:07 PM PST documented in this encounter Progress Notes Alex Sanchez MD,PhD - 09/25/2018 1:00 PM PSTI was present for the entire procedure ( DRG SCS trial) and all bocanegra elements of this visit. I reviewed the documentation of the othe r [facility] providers and concur with Dr. Rebollar's findings. I edited his note. Alex Sanchez MD,PhD Ecosystem Ecology Professor Anesthesiology and Pain Management [facility] [place] onacZain bonner RN - 09/25/2018 1:00 PM [...] by physician. Concentration is 150mg/mL. Compounded by [employer] ) KETOROLAC IM Inject into the muscle [...] GRAM SOLUTION Take as directed by [facility] Digestive [facility]- 2 gallon bowel prep POLYETHYLENE GLYCOL [...] PRE-SEDATION: Date: September 25, 2018 Tracie Farah [id number] 1990 ALLERGIES: Morphine Previous reaction to Sedation/Analgesia: [...] September 25, 2018 [facility] [id number] 1990 ALLERGIES: Morphine Previous reaction to Sedation/Analgesia: [...] Sedation Flow Sheet. Tracie [facility] [id number] 1990, presents to clinic for: Procedure: bilateral [...] OPERATIVE NOTE Date: September 25, 2018 Location: [facility] Procedure Room Tracie [facility] [id number] :1990, presents to clinic for: PROCEDURE: DRG Spinal Cord Stimuation Trial with St. [employer] system LEVEL/LATERALITY: left L4, L5 PRE-OPERATIVE DIAGNOSIS: G90.522 Complex regional pain syndrome type 1 of left lower extremity POST-OPERATIVE DIAGNOSIS: G90.522 Complex regional pain syndrome type 1 of left lower extremity ATTENDING PHYSICIAN: Alex Sanchez MD,PhD FORECLOSURE HOME INSPECTOR: Fellow Aleta Rebollar ANESTHESIA: Sedation delivered by [...] Ms. Farah was escorted to the [facility] Procedure R oom, where she [...] patient. Ms. Farah was transported to the [facility] [place] post-procedure recovery area where she made an uneventful recovery. Programming was performed in the PACU with aid of the device eligibility services representative and Ms. Susie faust was sent home with a few programs . This was a unilateral procedure. Alex Sanchez MD,PhD was present for the entire procedure. Images were saved, and sent to Dr. TATTOFF. Ms. Farah was transported to the [facility] [place] post-procedure recovery area. She had an uneventful recovery. Before the procedure, Ms. Farah's pain was 7/10. After the procedure Ms. Farah's pain was 7/10. I, Sonia Key, am functioning as a scribe for Aleta Rebollar MD. I have reviewed and verified the above scribed note of my visit with this patient as record ed by Sonia Key. Aleta Rebollar MD [facility] 15TH FLOOR [address] [facility] Mail Code: [address] [address] documented in t his encounter Plan of Treatment Not on filedocumented as of this encounter Procedures + +--------+ + + + | Procedure Name | Priori | Date/Time | Associated Diagnosis | Comments | | | ty | | | | + +--------+ + + + | IA MOD SEDATION | Routin | 09/25/2018 | Complex regional | | | >=5YRS SAME MD/QUAL | e | 7:31 PM | pain syndrome type 1 | | | PROV; INIT 15 MIN | | PST | of left lower | | | | | | extremity | | + +--------+ + + + | IA PERCUT IMPLNT | Routin | 09/25/2018 | [...]
--- OUTSIDE RECORDS SUMMARY | ~2020-07-04 | XMS | Encounter Summary ---
Demographics + + + | Address | [address] | | | [place] [address] | + + + | Home Phone [...] + +------+ + | Care Professor Of Biology Name | Role | Phone | + +------+ + | Justo Vazquez MD | PCP | | + +------+ + Encounter Details +--------+ + + + + | Date | Type | Department | Care Team | Description | +--------+ + + + + | 12/28/ | Telephone | [facility] | Ilene Bright, | | | 2019 | | Pain Center at | VOLCANOLOGY TEACHER [address] | | | | | [facility] | [place], [place] | | | | | [address] | [address] | | | | | [place] for [facility] | [phone] | | | | | and Healing, | | | | | | | | | | | | Floor [place], [place] | | | | | | [address] | | | | | | [phone] | | | +--------+ + + + [...]
--- OUTSIDE RECORDS SUMMARY | ~2020-07-04 | XMS | Encounter Summary ---
[...] Providers + +------+ + | Care Log Data Technician Name | Role | Phone | + +------+ + | Justo Vazquez MD | PCP | | + +------+ + Encounter Details +--------+ + + + + | Date | Type | Department | Care Team | Description | +--------+ + + + + | 10/03/ | Telephone | [facility] | Ilene Bright, | | | 2017 | | Pain Center at | LEVEL GLASS FORMING MACHINE OPERATOR [address] | | | | | [facility] | [place], [place] | | | | | [address] | [address] | | | | | [place] for [facility] | [phone] | | | | | and Healing, | | | | | | | | | | | | Floor [place], [place] | | | | | | [address] | | | | | | [phone] | | | +--------+ + + + [...]
--- OUTSIDE RECORDS SUMMARY | ~2020-07-04 | XMS | Encounter Summary ---
Demographics + + + | Address | [address] | | | [place] [address] | + + + | Home Phone [...] Providers + +------+ + | Care Job Press Operator Name | Role | Phone | + +------+ + | Justo Vazquez MD | PCP | | + +------+ + Encounter Details +--------+ + + + + | Date | Type | Department | Care Team | Description | +--------+ + + + + | 05/12/ | MyChart | [facility] | Ewa Melchor, | RE: Schedule change | | 2017 | Encounter | [address] | BONDING EQUIPMENT OPERATOR [address] | | | | | [place] for [facility] | [address] | | | | | and Healing, | [place] [address] | | | | | | [phone] | | | | | Floor [place], [place] | | | | | | [address] | | | | | | [phone] | | | +--------+ + + + [...]
--- OUTSIDE RECORDS SUMMARY | ~2020-07-04 | XMS | Encounter Summary ---
Demographics + + + | Address | [address] | | | [place] [address] | + + + | Home Phone [...] Team Providers + +------+ + | Care New Media Strategist Name | Role | Phone | [...] | [facility] | Aleta Rebollar MD [address] | Nausea | | 2018 | | Pain Center at | [address] | | | | | [facility] | [place], [place] | | | | | [address] | [address] | | | | | [place] for [facility] | [phone] | | | | | and Healing, | | | | | | Building | | | | | | [place], [place] | | | | | | [address] | | | | | | [phone] | | | +--------+ + + + [...]
--- OUTSIDE RECORDS SUMMARY | ~2020-07-04 | XMS | Encounter Summary ---
Demographics + + + | Address | [address] | | | [place] [address] | + + + | Home Phone [...] Providers + +------+ + | Care Crab Butcher Name | Role | Phone | + [...] | Procedures | [place] | [facility], | | | | | CONSULT TO | [address] | [place] | | | | | PAIN | | [address] | | | | | MANAGEMENT | | Phone: | | | | | | | [phone] | | | | | | | Fax: | | | | | | | [phone] | +--------+--------+ + + + + Encounter Details +--------+---------+ + + + | Date | Type | Department | Care Team | Description | +--------+---------+ + + + | 04/23/ | Office | [facility] | Alex Sanchez, | Complex regional | | 2019 | Visit | [address] | ,PhD [address] [facility] | pain syndrome type 1 | | | | Center for [facility] | [address] | of left lower | | | | and Healing, | [place], [place] | extremity (Primary | | | | Building | [address] | Dx); Other chronic | | | | Floor [place], [place] | [phone] | pain ; S/P insertion | | | | [address] | | of spinal cord | | | | [phone] | | stimulator | +--------+---------+ + + [...] the lab on the 1st floor of [facility] to provide a urine sample [...] fox in our notes. Alex Sanchez MD,PhD [facility] Center[facility]ronically signed [...] Aleta Lam MD - 1:00 PM PDT [facility] Return Visit Date: 04/23/2019 Chief Complaint Patient presents with Pain in left leg from the knee downl Back pain where battery pack is located History of Present Illness: Tracie Farah is a 28 year old female, whose last appoi ntment at the [facility] was December [...] leg pain due to the boone that [facility] has in place. She is looking [...] - DRG Spinal cord stimulator trial with [employer] system (09/25/2018) with 30-40% im provement of typical pain with significant improvement in mobility and function - Left popliteal/sciatic nerve injection AND abdominal scar trigger point injection ( 018) - Spinal cord stimulator trial with [employer] system by Janak Riojas MD (08/02/2012) - Left L3 lumbar sympathetic block by Janak Riojas MD (03/01/2012) Opioid Risk Tool (ORT) 04/23/2019 [facility] Brief Pain Inventory: (ten= worst [...] Hemroidectomy Trial spinal cord stimulator leads 08/02/2012 [employer], Surgeon: Janak Riojas MD Cholecystectomy Appendectomy [...] History Social History Narrative Single. Goes to [employer] with a light load. Has been working at [employer], can' t work on [employer]. Has roommates. Allergies Allergen Reactions Morphine Anaphylaxis [...] GRAM-5.86 GRAM SOLUTION Take as directed by [facility] Digestive Health- 2 [...] with nausea Abdominal pain Abdominal scar neuroma [facility] CLINICAL PROTOCOL PATIENT (CLNPRO) - [...] and summary of old medical records (source: [employer]), as summarized in the body of the [...] We performed DRG SCS trial with the [employer] System on 09/25/2018 which provided her with [...] ago. She has not spoken with the [employer] representatives about this. I encouraged her to [...] Key. Aleta Rebollar MD [facility] 15TH FLOOR [address] [facility] Mail Code: Ch15[address] [place] [id number] do cumented in this encounter Plan of [...] + + + + + | [facility] | [address] | [place] [address] | | | SERVICES, CORE | GUILLERMO [...]
--- OUTSIDE RECORDS SUMMARY | ~2020-07-04 | XMS | Encounter Summary ---
Demographics + + + | Address | [address] | | | [place] [address] | + + + | Home Phone [...] Providers + +------+ + | Care Owner [employer] Name | Role | Phone | + +------+ + | Justo Vazquez MD | PCP | | + +------+ + Encounter Details +--------+ + + + + | Date | Type | Department | Care Team | Description | +--------+ + + + + | 01/12/ | Telephone | Digestive Health | Kenny Gaspar MD | | | 2016 | | [place] [address] [address] | | | | | | [address] [facility] | | | | | | for Health and | | | | | | [facility], Building 2 | | | | | | [place], [place] | | | | | | [address] | | | | | | [phone] | | | +--------+ + + + [...]
--- OUTSIDE RECORDS SUMMARY | ~2020-07-04 | XMS | Encounter Summary ---
Demographics + + + | Address | [address] | | | [place] [address] | + + + | Home Phone [...] Team Providers + +------+ + | Care Apiculturist Name | Role | Phone | + [...] with nausea | [address] | [address] [place], | | | | | Complex | Rd | [place] | | | | | regional | [place], [place] | [address] | | | | | pain | [address] | Phone: | | | | | syndrome | Phone: | [phone] | | | | | type 1 of | [phone] | Fax: | | | | | left lower | Fax: | [phone] | | | | | extremity | [phone] | | | | | | Procedures [...] | | | | | unspecified | [facility] | [address] | | | | | location | Rd | [facility] | | | | | Procedures | [place], [place] | Rd [place], | | | | | CONSULT TO | [address] | [place] | | | | | PAIN | | [address] | | | | | MANAGEMENT | | Phone: | | | | | | | [phone] | | | | | | | Fax: | | | | | | | [phone] | +--------+--------+ + + + + Encounter Details +--------+---------+ + + + | Date | Type | Department | Care Team | Description | +--------+---------+ + + + | 04/19/ | Office | [facility] [place] | Alex Sanchez, | Intractable cyclical | | 2018 | Visit | Pain Center at | ,PhD [address] | vomiting with | | | | [facility] | [address] | nausea (Primary Dx); | | | | [address] | [place], [place] | Complex regional | | | | [place] for [facility] | [address] | pain syndrome type 1 | | | | and Healing, | [phone] | of left lower | | | | Building | | extremity | | | | Floor [facility] [place] | | | | | | [address] | | | | | | [phone] | | | +--------+---------+ + + + [...] might be differe nt from the original. [facility] Return Visit Date: 04/20/2018 Chief [...] not help for the abdominal pain). PAINBRIEF: [facility] Brief Pain Inventory: (ten= worst possible [...] History Social History Narrative Single. Goes to [employer] with a light load. Has been working at [employer], can' t work on [employer]iment[employer]. Has roommates. Allergies Allergen Reactions Morphine Anaphylaxis [...] by physician. Concentration is 150mg/mL. Compounded by [facility] ) KETOROLAC IM Inject into the [...] as directed by [facility] Digestive Health- 2 gallon bowel [...] to her by Christie Madrid MD in [place], [place]. As she chowdhury s since left the practice, Ms. Fraah no longer has a prescriber for this medication. At [facility], we typically do not [...] etiology. [facility], and is greatly helped by [...] Follow up as needed Alex Sanchez MD,PhD [facility] 3 :41 PM PDTSmithCharline MA [...]
--- OUTSIDE RECORDS SUMMARY | ~2020-07-04 | XMS | Encounter Summary ---
Demographics + + + | Address | [address] | | | [place] [address] | + + + | Home Phone [...] Providers + +------+ + | Care Environmental Intern Name | Role | Phone | + +------+ + | Allegra Chaudhary | PCP | | + +------+ + Encounter Details +--------+ + + + + | Date | Type | Department | Care Team | Description | +--------+ + + + + | 10/21/ | Telephone | Dig[facility]ive Health | Antony Beltre, | | | 2014 | | [place] [address] [address] | [address] | | | | | [address] | [place] [address] | | | | | for Health and | [phone] | | | | | [facility], [facility] 2 | | | | | | [place], [place] | | | | | | [address] | | | | | | [phone] | | | +--------+ + + + [...]
--- OUTSIDE RECORDS SUMMARY | ~2020-07-04 | XMS | Encounter Summary ---
Demographics + + + | Address | [address] | | | [place] [address] | + + + | Home Phone [...] Providers + +------+ + | Care Art Gallery Director Name | Role | Phone | + +------+ + | Justo Vazquez MD | PCP | | + +------+ + Encounter Details +--------+ + + + + | Date | Type | Department | Care Team | Description | +--------+ + + + + | 05/14/ | Telephone | [facility] | Alex Sanchez, | | | 2019 | | Pain Center at | ,PhD [address] | | | | | [facility] | [address] | | | | | [address] | [place], [place] | | | | | [place] for [facility] | [address] | | | | | and Healing, | [phone] | | | | | | | | | | | Floor [place], [place] | | | | | | [address] | | | | | | [phone] | | | +--------+ + + + [...]
--- OUTSIDE RECORDS SUMMARY | ~2020-07-04 | XMS | Encounter Summary ---
Demographics + + + | Address | [address] | | | [place] [address] | + + + | Home Phone [...] Providers + +------+ + | Care Risk Management Manager Name | Role | Phone [...] Visit | Medicine Clinic at | R, NARCOTICS INVESTIGATOR [address] [facility] | (Primary Dx); | | | | 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 Surgery check-in location: [facility] Day Stay - [facility], 4th floor Surgery Check in Time: [...] is after office hours, call the [facility] angle dozer operator at [phone] and ask them to page him or h er. documented in this encounter Progress Notes Catie Smart NP - 11/27/2018 2:05 PM PST PREOPERATIVE CONSULT NOTE Author: Catie Smart NP Referring Physician: Alex Sanchez MD Primary Care Provider: Justo Vazquez MD Reason for Consult: Preoperative evaluation and risk assessment Proposed Procedure/Date: implant SCS; 12/05/2018 Proposed Procedure Location: [facility] HISTORY OF PRESENT ILLNESS: Tracie Farah [...] renal failure no electrolyte abnormalities no dialysis Urology/Pump Service Supervisor: Interstitial cystitis LMP: irreg bleeding, ~11/14/2018, IUD [...] oral recon soln Take as directed by [facility] [employer] [facility]- 2 gallon bowel prep polyethylene glycol 17 [...] patient is a lso currently scheduled at [facility] [place] and is meeting inclusion criteria [...] this patient's care. Catie Smart NP [facility] PBB PREOPERATIVE MEDICINE CLINIC AT [facility] 4TH FLOOR [address] [facility] [address] I advised the patient regarding [...]
--- OUTSIDE RECORDS SUMMARY | ~2020-07-04 | XMS | Encounter Summary ---
Demographics + + + | Address | [address] | | | [place] [address] | + + + | Home Phone [...] + +------+ + | Care Six Sigma Project Manager Name | Role | Phone [...] Management | Bruna Gonzalez | Luis M Oliviera | | 2011 | IP | [address] | | House - Approved | | | | [place], | | | | | | [place] [address] | | | +--------+ + + + [...]
--- OUTSIDE RECORDS SUMMARY | ~2020-07-04 | XMS | Encounter Summary ---
Demographics + + + | Address | [address] | | | [place] [address] | + + + | Home Phone [...] Team Providers + +------+ + | Care Lime Vat Tender Name | Role | Phone | [...] | | 2017 | | Center at [facility] [address] | | Review | | | | [facility] | | | | | | for Health and | | | | | | [facility], [facility] [address] | | | | | | [place], [place] | | | | | | [address] | | | | | | [phone] | | | +--------+ + + + [...]
--- OUTSIDE RECORDS SUMMARY | ~2020-07-04 | XMS | Encounter Summary ---
Demographics + + + | Address | [address] | | | [place] [address] [...] Providers + +------+ + | Care Educational Interpreter Name | Role | Phone | [...] | | | sympathetic | [place] | [address]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 | FAMILY | [address] | | | | | of lower | MEDICINE P | [id number] | | | | | limb | [address] | [place], [place] | | | | | | [place], | [address] | | | | | | [place] [address] | Phone: | | | | | | Phone: | [phone] | | | | | | [phone] | Fax: | | | | | | Fax: | [phone] | | | | | | [phone] | | +--------+--------+ + + + + [...] [facility] | [facility] [id number] | syndrome), lower | | | | [address] | [place], [place] | limb (Primary Dx) | | | | [place] [facility] | [address] | | | | | and Healing, | [phone] | | | | | Building | | | | | | Floor [place], [place] | | | | | | [address] | | | | | | [phone] | | | +--------+---------+ + + + [...] evaluated the patient with Fellow Nhan Guo [facility], who conducted the initial history. I reviewed the history in det ail and edited his note. I was present for the examination and formulation portions of the encounter. I agree with the findings and the plan of care as documented in our notes. DALE CANTU MD Box Attacher, [facility] Pharmacology Teacher, Pain Medicine Professor, Anesthesiology & Perioperative [...] physical activity and social withdrawal enok Gutierrez, [facility] - 08/04/2012 7:25 AM PDTFormatting of this note might be different from the origi nal. [facility] Return Visit with [...] has been treated at the Comprehensive [facility] for lower limb pain with the [...] and a pain drawing which I reviewed. [facility] Brief Pain Inventory: (ten= worst possible [...] by the [facility] was reviewed. Additional Review of Systems: 1. [...] multiple programs with both [facility] programs, however it appears that it [...] bath today, OK to shower. HENOK GUO [facility] COMPRE[facility]ENSIVE PAIN CENTER documented in this en counter Plan of Treatment Not on filedocumented as of this encounter Visit Diagnoses + + | Diagnosis | + + | CRPS (complex regional pain syndrome), lower limb - Primary Causalgia of lower limb | + + documented in this encounter
--- OUTSIDE RECORDS SUMMARY | ~2020-07-04 | XMS | Encounter Summary ---
Demographics + + + | Address | [address] | | | [place] [address] | + + + | Home Phone [...] Team Providers + +------+ + | Care Reading Professor Name | Role | Phone | [...] | | Pain Center at | ,PhD [address] [facility] | follow-up | | | | [facility] | [address] | | | | | [address] | [place], [place] | | | | | [facility] | [address] | | | | | and Martina, | [phone] | | | | | Building | | | | | | Floor [place], [place] | | | | | | [address] | | | | | | [phone] | | | +--------+ + + + [...]
--- OUTSIDE RECORDS SUMMARY | ~2020-07-04 | XMS | Encounter Summary ---
Demographics + + + | Address | [address] | | | [place] [address] | + + + | Home Phone [...] Team Providers + +------+ + | Care Oyster Cultivator Name | Role | Phone | + +------+ + | Justo Vazquez MD | PCP | | + +------+ + Encounter Details +--------+ + + + + | Date | Type | Department | Care Team | Description | +--------+ + + + + | 12/07/ | Telephone | [facility] | Alex Sanchez, | | | 2019 | | Pain Center at | ,PhD [address] | | | | | [facility] | [address] | | | | | [address] | [place], [place] | | | | | [place] for [facility] | [address] | | | | | and Healing, | [phone] | | | | | | | | | | | Floor [place], [place] | | | | | | [address] | | | | | | [phone] | | | +--------+ + + + [...]
--- OUTSIDE RECORDS SUMMARY | ~2020-07-04 | XMS | Encounter Summary ---
Demographics + + + | Address | [address] | | | [place] [address] | + + + | Home Phone [...] Providers + +------+ + | Care Top Steep Tender Name | Role | Phone | [...] Oliveira | | 2011 | IP | [address] | | House - Approved | | | | Giuliana Maldonado [place], | | | | | | [place] [address] | | | +--------+ + + + [...]
--- OUTSIDE RECORDS SUMMARY | ~2020-07-04 | XMS | Encounter Summary ---
Demographics + + + | Address | [address] | | | [place] [address] | + + + | Home Phone [...] Team Providers + +------+ + | Care Managing Broker Name | Role | Phone | + +------+ + | Justo Vazquez MD | PCP | | + +------+ + Encounter Details +--------+ + + + + | Date | Type | Department | Care Team | Description | +--------+ + + + + | 09/20/ | Telephone | [facility] | Ilene Bright, | | | 2017 | | Pain Center at | MINE ENGINEERING MANAGER [address] | | | | | [facility] | [place], [place] | | | | | [address] | [address] | | | | | [place] for [facility] | [phone] | | | | | and Healing, | | | | | | | | | | | | Floor [place], [place] | | | | | | [address] | | | | | | [phone] | | | +--------+ + + + [...]
--- OUTSIDE RECORDS SUMMARY | ~2020-07-04 | XMS | Encounter Summary ---
Demographics + + + | Address | [address] | | | [place] [address] | + + + | Home Phone [...] Team Providers + +------+ + | Care Duck Bill Operator Name | Role | Phone | [...] | | Complex | Alex Alba, | [facility] [address] | | | | | regional | ,PhD [address] | Pavilion | | | | | pain | [address] | [address] | | | | | syndrome | [address] | [address]eg[address], | | | | | type 1 of | Rd | Basement | | | | | left lower | [place], [place] | [place], [place] | | | | | extremity | [address] | [address] | | | | | Muscle pain | Phone: | Phone: | | | | | Procedures | [phone] | [phone] | | | | | NM BONE | Fax: | Fax: | | | | | &/OR JOINT | [phone] | [phone] | | | | | IMAGING | [...] + + | 12/27/ | Ancillary | [facility] | Alex Sanchez, | | | 2018 | Orders | Pain Center at | ,PhD [address] [facility] | | | | | [facility] | [address] | | | | | [address] | [place], [place] | | | | | [facility] | [address] | | | | | and Martina, | [phone] | | | | | [facility] | | | | | | Floor [place], [place] | | | | | | [address] | | | | | | [phone] | | | +--------+ + + + [...] Note | + + | Service Account, CG Scholar Res In Interface - 12/28/2017 11:43 AM [...]
--- OUTSIDE RECORDS SUMMARY | ~2020-07-04 | XMS | Encounter Summary ---
Demographics + + + | Address | [address] | | | [place] [address] | + + + | Home Phone [...] Team Providers + +------+ + | Care Distribution Collection Operator Name | Role | Phone | [...] | | 2017 | | Center at [facility] [address] | | pain | | | | [address] [facility] | | | | | | for Health and | | | | | | Healing, Building 2 | | | | | | [place], [place] | | | | | | [address] | | | | | | [phone] | | | +--------+ + + + [...]
--- OUTSIDE RECORDS SUMMARY | ~2020-07-04 | XMS | Encounter Summary ---
Demographics + + + | Address | [address] | | | [place] [address] | + + + | Home Phone [...] + +------+ + | Care Process Development Manager Name | Role | Phone [...] [address] | | | | | [facility] | [facility], | | | | | [address] | [place] [address] | | | | | [facility] | [phone] | | | | | and Healing, | | | | | | Building | | | | | | [place], [place] | | | | | | [address] | | | | | | [phone] | | | +--------+ + + + [...]
--- OUTSIDE RECORDS SUMMARY | ~2020-07-04 | XMS | Encounter Summary ---
Demographics + + + | Address | [address] | | | [place] [address] | + + + | Home Phone [...] Team Providers + +------+ + | Care Activity Therapy Specialist Name | Role | Phone | + +------+ + | Justo Vazquez MD | PCP | | + +------+ + Encounter Details +--------+ + + + + | Date | Type | Department | Care Team | Description | +--------+ + + + + | 06/04/ | Documentati | [facility] | Alex Sanchez, | | | 2019 | on | Pain Center at | ,PhD [address] | | | | | [facility] | [address] | | | | | [address] | [place], [place] | | | | | [place] for [facility] | [address] | | | | | and Healing, | [phone] | | | | | | | | | | | Floor [place], [place] | | | | | | [address] | | | | | | [phone] | | | +--------+ + + + [...]
--- OUTSIDE RECORDS SUMMARY | ~2020-07-04 | XMS | Encounter Summary ---
Demographics + + + | Address | [address] | | | [place] [address] | + + + | Home Phone [...] Providers + +------+ + | Care Millwright Helper Name | Role | Phone | + +------+ + | Justo Vazquez MD | PCP | | + +------+ + Encounter Details +--------+ + + + + | Date | Type | Department | Care Team | Description | +--------+ + + + + | 10/19/ | Telephone | [facility] | Ilene Bright, | | | 2017 | | Pain Center at | BRASS WIND INSTRUMENT MAKER [address] | | | | | [facility] | [place], [place] | | | | | [address] | [address] | | | | | [place] for [facility] | [phone] | | | | | and Healing, | | | | | | | | | | | | Floor [place], [place] | | | | | | [address] | | | | | | [phone] | | | +--------+ + + + [...]
--- OUTSIDE RECORDS SUMMARY | ~2020-07-04 | XMS | Encounter Summary ---
Demographics + + + | Address | [address] | | | [place] [address] | + + + | Home Phone [...] Providers + +------+ + | Care Maintenance Mechanic Name | Role | Phone | + +------+ + | Justo Vazquez MD | PCP | | + +------+ + Encounter Details +--------+ + + + + | Date | Type | Department | Care Team | Description | +--------+ + + + + | 03/23/ | MyChart | [facility] | Ilene Bright, | Welcome | | 2017 | Encounter | Pain Center at | APPLE PEELER OPERATOR [address] | | | | | [facility] | [place], [place] | | | | | [address] | [address] | | | | | [place] for [facility] | [phone] | | | | | and Healing, | | | | | | | | | | | | Floor [place], [place] | | | | | | [address] | | | | | | [phone] | | | +--------+ + + + [...]
--- OUTSIDE RECORDS SUMMARY | ~2020-07-04 | XMS | Encounter Summary ---
Demographics + + + | Address | [address] | | | [place] [address] | + + + | Home Phone [...] + +------+ + | Care Director Of Regulatory Affairs Name | Role | Phone | + [...] | pain, | [address] | [address] | | | | | unspecified | [address] | [address] | | | | | abdominal | Rd | [place], [place] | | | | | location | [facility] [place] | [address] | | | | | Pain of | [address] | Phone: | | | | | upper | | [phone] | | | | | abdomen | | Fax: | | | | | Complex | | [phone] | | | | | regional | [...] | | | | | | | TWIST TESTER | | | +--------+---------+ + + + + Reason for Visit + + + | Reason | Comments | + + + | Procedure | | + + + Encounter Details +--------+ + + + + | Date | Type | Department | Care Team | Description | +--------+ + + + + | 08/30/ | Telephone | [facility] | Ilene Bright, | Procedure | | 2017 | | Pain Center at | NEUROPSYCHOLOGY MEDICAL CONSULTANT [address] | | | | | [facility] | [place], [place] | | | | | [address] | [address] | | | | | [facility] | [phone] | | | | | and Healing, | | | | | | Building | | | | | | Floor [place], [place] | | | | | | [address] | | | | | | [phone] | | | +--------+ + + + [...]
--- OUTSIDE RECORDS SUMMARY | ~2020-07-04 | XMS | Encounter Summary ---
Demographics + + + | Address | [address] | | | [place] [address] | + + + | Home Phone [...] Team Providers + +------+ + | Care Zipper Repairer Name | Role | Phone | [...] [place] | | | | | | [address] | | | +--------+ + + + [...]
--- OUTSIDE RECORDS SUMMARY | ~2020-07-04 | XMS | Encounter Summary ---
Demographics + + + | Address | [address] | | | [place] [address] | + + + | Home Phone [...] Providers + +------+ + | Care Corporate Strategy Intern Name | Role | Phone | [...] | | | | | Giuliana Maldonado [place], | | | | | | [place] [address] | | | +--------+ + + + [...]
--- OUTSIDE RECORDS SUMMARY | ~2020-07-04 | XMS | Encounter Summary ---
Demographics + + + | Address | [address] | | | [place] [address] | + + + | Home Phone [...] Providers + +------+ + | Care Hand Paint Mixer Name | Role | Phone | [...] Rd | | | | | | [place], [place] | | | | | | [address] | | | +--------+ + + + [...]
--- OUTSIDE RECORDS SUMMARY | ~2020-07-04 | XMS | Encounter Summary ---
Demographics + + + | Address | [address] | | | [place] [address] | + + + | Home Phone [...] Team Providers + +------+ + | Care Dowel Pointer Name | Role | Phone | + [...] | | | | | Procedures | [place], [place] | | | | | | MR | [id number] | | | | | | ENTEROGRAPHY [...] | 2017 | Visit | Center at [facility] [address] | | unspecified location | | | | [address] [facility] | | (Primary Dx) | | | | for Health and | | | | | | Healing, Building 2 | | | | | | [place], [place] | | | | | | [address] | | | | | | [phone] | | | +--------+---------+ + + + [...] Kenny Gaspar Md - 01/11/2017 3:15 PM PSTTraice Farah It was nice to see you in clinic today. Our plan for you is: 1) have ordered external urine and blood work to be drawn during a flare - check for porphy ellen, C1 esterase, heavy metal poisoning 2) MR enterography - [phone] to schedule 3) can increase miralax to 6 times per day Return to clinic in 3 months Please feel free to call our clinic with any questions. [phone] Kenny Gaspar MD Fellow, Division of Gastroenterology [...] n their attached note. Celia Lin MD Crotch Breakersafety admin assistant Division of Gastroenterology & Hepatology [facility] Kenny Dodge Md - 2016 3:15 PM PST Gastroenterology Clinic Follow-Up Note 01/11/2017 CC/ID: Tracie Farah is a 26 F PMHx depression, complex regional pain syndrome(CRPS ) here for follow-up of n/v, abdominal pain INTERVAL HISTORY: Previously seen by Dr. Carbajal 08/10/16 - 10/2015 - hospitalized at [facility] for nausea/vomiting/pain -> [facility] -> CT [...] oral recon soln Take as directed by [facility]- 2 gallon bowel prep 8000 mL 0 [...] Note | + + | Service Account, [employer] Res In Interface - 02/01/2017 3:50 PM [...]
--- OUTSIDE RECORDS SUMMARY | ~2020-07-04 | XMS | Encounter Summary ---
Demographics + + + | Address | [address] | | | [place] [address] | + + + | Home Phone [...] Providers + +------+ + | Care Public Address System Mechanic Name | Role | Phone | [...] | Pain Center at | [address] | | | | | [facility] | [facility] [address]487 | | | | | [address] | [place], [place] | | | | | Center for Health | [address] | | | | | and Healing, | [phone] | | | | | [facility] | | | | | | Floor [place], [place] | | | | | | [address] | | | | | | [phone] | | | +--------+ + + + [...]
--- OUTSIDE RECORDS SUMMARY | ~2020-07-04 | XMS | Encounter Summary ---
Demographics + + + | Address | [address] | | | [place] [address] | + + + | Home Phone [...] Team Providers + +------+ + | Care Moth Exterminator Name | Role | Phone | + [...] | | | | | | Giuliana Maldondao [place], | | | | | | [place] [address] | | | +--------+ + + + [...]
--- OUTSIDE RECORDS SUMMARY | ~2020-07-04 | XMS | Encounter Summary ---
Demographics + + + | Address | [address] | | | [place] [address] | + + + | Home Phone [...] + +------+ + | Care Check Writer Salesperson Name | Role | Phone | [...] | Encounter | Center at [facility] [address] | | results | | | | [facility] | | | | | | for Health and | | | | | | Healing, Building 2 | | | | | | [place], [place] | | | | | | [address] | | | | | | [phone] | | | +--------+ + + + [...]
--- OUTSIDE RECORDS SUMMARY | ~2020-07-04 | XMS | Encounter Summary ---
Demographics + + + | Address | [address] | | | [place] [address] | + + + | Home Phone [...] Providers + +------+ + | Care Educational Coordinator Name | Role | Phone | [...] + + | 06/07/ | Telephone | [facility] Ilene | Ilene Bright, | Care Coordination | | 2016 | | Pain Center at | CASINO CASHIER MANAGER [address] | | | | | [facility] | [place], [place] | | | | | [address] | [address] | | | | | [facility] | [phone] | | | | | and Healing, | | | | | | Building , | | | | | | Floor [place], [place] | | | | | | [address] | | | | | | [phone] | | | +--------+ + + + [...]
--- OUTSIDE RECORDS SUMMARY | ~2020-07-04 | XMS | Encounter Summary ---
Demographics + + + | Address | [address] | | | [place] [address] | + + + | Home Phone [...] Team Providers + +------+ + | Care Porcelain Enamel Installer Name | Role | Phone | [...] ogy | | Ava Torres, | [address] | | | | | Constipation | [address] | [address] | | | | | , | [address] | [place] for | | | | | unspecified | [address] | Health and | | | | | constipation | [facility] [place] | Healing, | | | | | type | [address] | Building 2 | | | | | Procedures | | [place], [place] | | | | | CONSULT TO | | [address] | | | | | GI PROCEDURE | | Phone: | | | | | UNIT: | | [phone] | | | | | ANORECTAL | | Fax: | | | | | MANOMETRY | | [phone] | | | | | [place] ANAL | | | | | | | PRESSURE | | | | | | | RECORD | | | +--------+--------+ + + + + Encounter Details +--------+ + + + + | Date | Type | Department | Care Team | Description | +--------+ + + + + | 09/14/ | Hospital | [facility] | Nurse, Gip [address] | | | 2016 | Encounter | [facility] [address] | [facility] | | | | | [address] [facility] for | Road [place], [place] | | | | | Health and Healing, | [address] | | | | | Building 2 | | | | | | [place], [place] | | | | | | [address] | | | | | | [phone] | | | +--------+ + + + [...]
--- OUTSIDE RECORDS SUMMARY | ~2020-07-04 | XMS | Encounter Summary ---
Demographics + + + | Address | [address] | | | [place] [address] | + + + | Home Phone [...] Providers + +------+ + | Care Cement Kiln Operator Name | Role | Phone | + +------+ + | Allegra Gandhi | PCP | | + +------+ + Encounter Details +--------+ + + + + | Date | Type | Department | Care Team | Description | +--------+ + + + + | 08/02/ | Results | [facility] | Janak Riojas, | | | 2011 | Only | Pain Center at | MD [address] [facility] | | | | | [facility] | [facility] [id number] | | | | | [address] | [place], [place] | | | | | Center for Health | [address] | | | | | and Martina, | [phone] | | | | | | | | | | | Floor [place], [place] | | | | | | [address] | | | | | | [phone] | | | +--------+ + + + [...]
--- OUTSIDE RECORDS SUMMARY | ~2020-07-04 | XMS | Encounter Summary ---
Demographics + + + | Address | [address] | | | [place] [address] | + + + | Home Phone [...] | | | | | Procedures | [place], [place] | | | | | | MR | [id number] | | | | | | ENTEROGRAPHY [...] | 2017 | Visit | Center at [facility] [address] | | unspecified location | | | | [address] [facility] | | (Primary Dx) | | | | for Health and | | | | | | Healing, Building 2 | | | | | | [place], [place] | | | | | | [address] | | | | | | [phone] | | | +--------+---------+ + + + [...] heavy metal poisoning 2) MR enterography - [phone] to schedule 3) can increase miralax to 6 times per day Return to clinic in 3 months Please feel free to call our clinic with any questions. [phone] Kenny Gaspar MD Fellow, Division of Gastroenterology [...] n their attached note. Celia Lin MD Bag Adjusterindependent sales representative Division of Gastroenterology & Hepatology [facility] Kenny Dodge Md - 2016 3:15 PM PST Gastroenterology Clinic Follow-Up Note 01/11/2017 CC/ID: Tracie Farah is a 26 F PMHx depression, complex regional pain syndrome(CRPS ) here for follow-up of n/v, abdominal pain INTERVAL HISTORY: Previously seen by Dr. Carbajal 08/10/16 - 10/2015 - hospitalized at [facility] for nausea/vomiting/pain -> [facility] -> CT [...] Note | + + | Service Account, [employer] Res In Interface - 02/01/2017 3:50 PM [...]
--- OUTSIDE RECORDS SUMMARY | ~2020-07-04 | XMS | Encounter Summary ---
Demographics + + + | Address | [address] | | | [place] [address] | + + + | Home Phone [...] Team Providers + +------+ + | Care Pantry Steward/Stewardess Name | Role | Phone | + +------+ + | Justo Vazquez MD | PCP | | + +------+ + Encounter Details +--------+ + + + + | Date | Type | Department | Care Team | Description | +--------+ + + + + | 12/05/ | Pharmacy | [facility] | | | | 2019 | Visit | & [facility]aling Pharmacy | | | | | | [address] | | | | | | Mailcode: [place] | | | | | | [facility] and | | | | | | Healing, Building 1 | | | | | | [place], [place] | | | | | | [address] | | | | | | [phone] | | | +--------+ + + + [...]
--- OUTSIDE RECORDS SUMMARY | ~2020-07-04 | XMS | Encounter Summary ---
Demographics + + + | Address | [address] | | | [place] [address] | + + + | Home Phone [...] Providers + +------+ + | Care Cloth Tearer Name | Role | Phone | + +------+ + | Justo Vazquez MD | PCP | | + +------+ + Encounter Details +--------+ + + + + | Date | Type | Department | Care Team | Description | +--------+ + + + + | 01/02/ | Telephone | [facility] | Ilene Bright, | | | 2019 | | Pain Center at | OPERATOR COMMAND SUPPORT SYSTEMS [address] | | | | | [facility] | [place], [place] | | | | | [address] | [address] | | | | | [place] for [facility] | [phone] | | | | | and Healing, | | | | | | | | | | | | Floor [place], [place] | | | | | | [address] | | | | | | [phone] | | | +--------+ + + + [...]
--- OUTSIDE RECORDS SUMMARY | ~2020-07-04 | XMS | Encounter Summary ---
Demographics + + + | Address | [address] | | | [place] [address] | + + + | Home Phone [...] Providers + +------+ + | Care Motorcycle Mechanic Apprentice Name | Role | Phone | + +------+ + | Justo Vazquez MD | PCP | | + +------+ + Encounter Details +--------+ + + + + | Date | Type | Department | Care Team | Description | +--------+ + + + + | 01/02/ | Telephone | [facility] | Ilene Bright, | | | 2019 | | Pain Center at | UNDERGROUND DRILL OPERATOR [address] | | | | | [facility] | [place], [place] | | | | | [address] | [address] | | | | | [place] for [facility] | [phone] | | | | | and Healing, | | | | | | | | | | | | Floor [place], [place] | | | | | | [address] | | | | | | [phone] | | | +--------+ + + + [...]
--- OUTSIDE RECORDS SUMMARY | ~2020-07-04 | XMS | Encounter Summary ---
Demographics + + + | Address | [address] | | | [place] [address] | + + + | Home Phone [...] Providers + +------+ + | Care Outsole Paraffiner Name | Role | Phone | + [...] | | | [address] | [facility] | | | | | [place], [place] | [place], [place] | | | | | [address] | [address] | | | | | | [phone] | | | | | | | [...] | + +--------+ + + + | PARTS CONTROL CLERK MISC PROCEDURE | Routin | 12/27/2017 | Complex regional | Results for this | | | e | 3:28 PM | pain syndrome type 1 | procedure are in the | | | | PST | of left lower | results section. | | | | | extremity | | + +--------+ + + + documented in this encounter Results [facility] MISC PROCEDURE (12/27/2017 3:28 PM PST) [...]
--- OUTSIDE RECORDS SUMMARY | ~2020-07-04 | XMS | Encounter Summary ---
Demographics + + + | Address | [address] | | | [place] [address] | + + + | Home Phone [...] Team Providers + +------+ + | Care Cellar Pumper Name | Role | Phone | + +------+ + | Justo Vazquez MD | PCP | | + +------+ + Encounter Details +--------+ + + + + | Date | Type | Department | Care Team | Description | +--------+ + + + + | 09/25/ | Hospital | Radiology/Imaging | Aleta Rebollar MD [address] | | | 2018 | Encounter | Lab at [facility] [address] | [address] | | | | | [address] [facility] for | [place], [place] | | | | | Health and Healing, | [address] | | | | | [address] | [phone] | | | | | Floor | | | | | | [address] | | | | | | [phone] | | | +--------+ + + + [...]
--- OUTSIDE RECORDS SUMMARY | ~2020-07-04 | XMS | Encounter Summary ---
Demographics + + + | Address | [address] | | | [place] [address] | + + + | Home Phone [...] [facility] Comprehensive | Yun Frey NP | Welcome | | 2017 | Encounter | Pain Center at | [address] | | | | | [facility] | [place], [place] | | | | | [address] | [address] | | | | | [place] for [facility] | [phone] | | | | | and Healing, | | | | | | | | | | | | Floor [place], [place] | | | | | | [address] | | | | | | [phone] | | | +--------+ + + + [...]
--- OUTSIDE RECORDS SUMMARY | ~2020-07-04 | XMS | Encounter Summary ---
Demographics + + + | Address | [address] | | | [place] [address] | + + + | Home Phone [...] Providers + +------+ + | Care Chemical Process Equipment Operator Name | Role | Phone | + +------+ + | Justo Vazquez MD | PCP | | + +------+ + Encounter Details +--------+ + + + + | Date | Type | Department | Care Team | Description | +--------+ + + + + | 08/03/ | Telephone | [facility] | Alex Sanchez, | | | 2018 | | Pain Center at | ,PhD [address] | | | | | [facility] | [address] | | | | | [address] | [place], [place] | | | | | [place] [facility] | [address] | | | | | and Healing, | [phone] | | | | | | | | | | | Floor [place], [place] | | | | | | [address] | | | | | | [phone] | | | +--------+ + + + [...]
--- OUTSIDE RECORDS SUMMARY | ~2020-07-04 | XMS | Encounter Summary ---
Demographics + + + | Address | [address] | | | [place] [address] | + + + | Home Phone [...] Providers + +------+ + | Care Color Separation Photographer Name | Role | Phone | [...] | | | | | syndrome | [facility] | [facility] | | | | | type [address] of | Rd | Rd [place], | | | | | left lower | [facility] [place] | [place] | | | | | extremity | [address] | [address] | | | | | Procedures | Phone: | Phone: | | | | | REQUEST TO | [phone] | [phone] | | | | | SURGERY | Fax: | Fax: | | | | | LIFESTYLE COORDINATOR | [phone] | [phone] | +--------+---------+ + + + + Physical [...] | | | | regional | ,PhD [address]11 | OTPTRehab | | | | | pain | [facility] | [address] | | | | | syndrome | [facility] | [place] | | | | | type 1 of | Rd | [place] | | | | | left lower | [place], [place] | [address] | | | | | extremity | [address] | Phone: | | | | | Procedures | Phone: | [phone] | | | | | PHYSICAL | [phone] | Fax: | | | | | THERAPY | Fax: | [phone] | | | | | REFERRAL | [phone] | | +--------+--------+ + + + + [...] | | | | | Procedures | [place], [place] | Rd [place], | | | | | CONSULT TO | [address] | [place] | | | | | PAIN | | [address] | | | | | MANAGEMENT | | Phone: | | | | | | | [phone] | | | | | | | Fax: | | | | | | | [phone] | +--------+--------+ + + + + Encounter Details +--------+---------+ + + + | Date | Type | Department | Care Team | Description | +--------+---------+ + + + | 06/12/ | Office | [facility] Comprehensive | Alex Sanchez, | Complex regional | | 2018 | Visit | Pain Center at | ,PhD [address] | pain syndrome type 1 | | | | [facility] | [facility] [address] | of left lower | | | | [address] | [place], [place] | extremity (Primary | | | | Center for Health | [address] | Dx) | | | | and Healing, | [phone] | | | | | | | | | | | Floor [place], [place] | | | | | | [address] | | | | | | [phone] | | | +--------+---------+ + + + [...] in the future, please contact me via Impinj to request an order to schedule. The procedure you discussed with your doctor is called: SCS DRG TRIAL LUMBAR [facility]. Please make sure this is scheduled with the Program Attendant. PRE-PROCEDURE INSTRUCTIONS 1. Please bring a industrial truck driver with you as we may give you medications that impair your ability to drive. This is necessary even if you do not receive sedation. You may take a taxi or ri [employer] if you are accompanied by a responsible [...] 2 weeks before your procedure, please contact [facility] to cl arify your instructions. The phone number for questions or concerns is [phone]. documented in this encounter Progress Notes Holly [...] MD,P hD - 06/12/2018 10:00 AM PDT [facility] Return Visit Date: 06/12/2018 Chief Complaint Patient presents with Pain in left leg History of Present Illness: Tracie Farah is a 28 year old female, whose last appoi ntment at the [facility] Center was May [...] that this mildly agitated her neck pain. CHARCOAL KILN BURNER Brief Pain Inventory: (ten= worst possible pain [...] Trial spinal cord stimulator leads 08/02/[address] [facility], Surgeon: Janak Riojas MD Cholecystectomy Appendectomy Other [...] History Social History Narrative Single. Goes to [employer] with a light load. Has been working at [employer], can' t work on [employer]. Has roommates. Allergies Allergen Reactions Morphine Anaphylaxis [...] by physician. Concentration is 150mg/mL. Compounded by [facility] ) KETOROLAC IM Inject into the [...] SOLUTION Take as directed by [facility] Dig[facility]ive Health- 2 gallon bowel [...] and summary of old medical records (source: [employer]), as summarized in the body of the [...] to send me a mess age via Impinj to request referrals to acupuncture and massage [...] by Sonia Key. Alex Sanchez MD PhD Aegis Console Operator Track Anesthesiology and Pain Management [facility] documented in t his encounter Plan of [...]
--- OUTSIDE RECORDS SUMMARY | ~2020-07-04 | XMS | Encounter Summary ---
Demographics + + + | Address | [address] | | | [place] [address] | + + + | Home Phone [...] Providers + +------+ + | Care Electrical And Radio Mechanic Name | Role | Phone | [...] HOSPITAL | | | | | | [address] | | | | | | [address] | | | | | | [facility] | | | | | | [place], [place] | | | | | | [address] | | | | | | [phone] | | | +--------+ + + + [...]
--- OUTSIDE RECORDS SUMMARY | ~2020-07-04 | XMS | Encounter Summary ---
Demographics + + + | Address | [address] | | | [place] [address] | + + + | Home Phone [...] Team Providers + +------+ + | Care Usability Strategist Name | Role | Phone | [...] | | | | regional | ,PhD [address] | | | | | | pain | [address] | | | | | | syndrome | [address] | | | | | | type 1 of | Rd | | | | | | left lower | [place], [place] | | | | | | extremity | [address] | | | | | | Other | Phone: | | | | | | chronic pain | [phone] | | | | | | S/P | Fax: | | | | | | insertion of | [phone] | | | | | | spinal [...] | | | | left lower | [place], [place] | | | | | | extremity | [address] | | | | | | Other | Phone: | | | | | | chronic pain | [phone] | | | | | | S/P | Fax: | | | | | | insertion of | [phone] | | | | | | spinal [...] + + | 04/26/ | Telephone | [facility] Comprehensive | Alex Sanchez, | | | 2019 | | Pain Center at | ,PhD [address] | | | | | [facility] | [address] | | | | | [address] | [place], [place] | | | | | [facility] | [address] | | | | | and Healing, | [phone] | | | | | | | | | | | Floor [place], [place] | | | | | | [address] | | | | | | [phone] | | | +--------+ + + + [...]
--- OUTSIDE RECORDS SUMMARY | ~2020-07-04 | XMS | Encounter Summary ---
Demographics + + + | Address | [address] | | | [place] [address] | + + + | Home Phone [...] Team Providers + +------+ + | Care Hide Shaker Name | Role | Phone | + [...] | | | | | extremity | [address] | [address] | | | | | Procedures | Phone: | Phone: | | | | | REQUEST TO | [phone] | [phone] | | | | | SURGERY | Fax: | Fax: | | | | | SAXOPHONE PLAYER | [phone] | [phone] | +--------+---------+ + + + + Encounter Details +--------+---------+ + + + | Date | Type | Department | Care Team | Description | +--------+---------+ + + + | 12/22/ | Office | [facility] Comprehensive | Ilene Bright, | Complex regional | | 2019 | Visit | Pain Center at | CATCHER HELPER [address] | pain syndrome type 1 | | | | [facility] | [place], [place] | of left lower | | | | [address] | [address] | extremity; S/P | | | | [place] for [facility] | [phone] | insertion of spinal | | | | and Healing, | | cord stimulator | | | | Building | | | | | | Floor [place], [place] | | | | | | [address] | | | | | | [phone] | | | +--------+---------+ + + + [...] your reference. - The [place] sales representative publications met with you and made adjustments to your stimulator. I spoke w ith the sales representative publications and she is happy with your progress [...] call this prescription into the [facility] in [place]. It was great to see you again, documented in this encounter Progress Notes Ilene Bright, CATCHER HELPER - 12/22/2018 11:00 AM PSTFormatting of this note might be different fr om the original. [facility] Center Return Visit Date: 12/22/2018 Chief Complaint Patient presents with Low back pain Pain in left leg History of Present Illness: Tracie Farah is a 28 year old female, whose last appoi ntment at the [facility] was 12/07/2018 following her [...] order to tolerate her incision site pain. DIRECTOR OF PHILANTHROPY Brief Pain Inventory: (ten= worst possible pain [...] History Social History Narrative Single. Goes to [employer] with a light load. Has been working at [employer], can' t work on [employer]. Has roommates. Allergies Allergen Reactions Morphine [...] directed by [facility] Digestive Health- 2 gallon bowel prep POLYETHYLENE [...] nausea Abdominal pain Abdominal scar neuroma [facility] CLINICAL PROTOCOL PATIENT (CLNPRO) - Implanted Spinal [...] and summary of old medical records (source: [facility], [facility] Everywhere), as summarized in the body of [...] her surgical incision. The [facility] sales representative publications visited the patient in order to make [...] ed by Collin Salomon. Ilene [place] DNP, CATCHER HELPER-C [facility] [address] [place] [address] mith, Charline Torres MA - 12/22/2018 11:00 [...]
--- OUTSIDE RECORDS SUMMARY | ~2020-07-04 | XMS | Encounter Summary ---
Demographics + + + | Address | [address] | | | [place] [address] | + + + | Home Phone [...] Providers + +------+ + | Care Solar Pool Heating Installer Name | Role | Phone | [...] 2015 | | Center at [facility] [address] | MD Melissa | | | | | [address] [facility] | | | | | | for Health and | | | | | | [facility], Building 2 | | | | | | [place], [place] | | | | | | [address] | | | | | | [phone] | | | +--------+ + + + [...]
--- OUTSIDE RECORDS SUMMARY | ~2020-07-04 | XMS | Encounter Summary ---
Demographics + + + | Address | [address] | | | [place] [address] | + + + | Home Phone [...] Providers + +------+ + | Care Web Ui Software Engineer Name | Role | Phone [...] 2 | | | | | | [place], [place] | | | | | | [address] | | | | | | [phone] | | | +--------+ + + + [...]
--- OUTSIDE RECORDS SUMMARY | ~2020-07-04 | XMS | Encounter Summary ---
Demographics + + + | Address | [address] | | | [place] [address] | + + + | Home Phone [...] Team Providers + +------+ + | Care Db2 Systems Programmer Name | Role | Phone | [...] | 2015 | | Center at [facility] [address] | MD Melissa | | | | | [address] [facility] | | | | | | for Health and | | | | | | Healing, Building [address] | | | | | | [place], [place] | | | | | | [address] | | | | | | [phone] | | | +--------+ + + + [...]
--- OUTSIDE RECORDS SUMMARY | ~2020-07-04 | XMS | Encounter Summary ---
Demographics + + + | Address | [address] | | | [place] [address] | + + + | Home Phone [...] Team Providers + +------+ + | Care Railroad Track Mechanic Name | Role | Phone | [...] | | | | | extremity | [address] | [address] | | | | | Procedures | Phone: | Phone: | | | | | REQUEST TO | [phone] | [phone] | | | | | SURGERY | Fax: | Fax: | | | | | ZOOGLER | [phone] | [phone] | +--------+---------+ + + + + Encounter Details +--------+---------+ + + + | Date | Type | Department | Care Team | Description | +--------+---------+ + + + | 09/28/ | Office | [facility] Comprehensive | Yun Frey, MANAGER HOME HEALTHCARE | Complex regional | | 2018 | Visit | Pain Center at | [address] | pain syndrome type 1 | | | | [place] | [place], [place] | of left lower | | | | [address] | [address] | extremity (Primary | | | | [facility] | [phone] | Dx); Arthralgia of | | | | and Healing, | | left lower leg | | | | | | | | | | [place], [place] | | | | | | [address] | | | | | | [phone] | | | +--------+---------+ + + + [...] Instructions Dayana Ivan - 09/28/2018 12:05 PM PSTrTacie, Thank you for taking the time to see us in the [facility]. It was great to s ee you. Below is a summary of the discussion that we had today: - Please keep your appointment with Dr. Sanchez on 10/02/2018. -Please contact the [facility]'s rep if you have any further question [...] PM PST September 28, 2018 Tracie Farah [id number] [facility] Comprehensive Pain Center Return Visit Chief [...] and a pain drawing which I reviewed. [facility] Questionnaire Follow-up Patient 10/10/2017 Please describe [...] PROCEDURE: DRG Spinal Cord Stimuation Trial with [employer] system LEVEL/LATERALITY: left L4, L5. Till date, [...] turned up to 7%. After seeing th enrollment eligibility representative today and killian ing adjustments, she [...] Hemroidectomy Trial spinal cord stimulator leads 08/02/2012 [facility], Surgeon: Janak Riojas MD Cholecystectomy Appendectomy [...] the vein (IV) every eight hour s. 9009-9579-46 COMPOUNDED MED RX CONTROLLED (SEE ADMIN INSTRUCT [...] by physician. Concentration is 150mg/mL. Compounded by [facility] ) KETOROLAC IM Inject into the [...] (IV) every twel ve hours as needed. 2028-3350-30 ONDANSETRON 4 MG DISINTEGRATING TABLET Dissolve 1 tablet in mouth every twelve hours as nee ded. PANTOPRAZOLE 40 MG TABLET,DELAYED RELEASE Take 40 mg by mouth once daily. PEG 3350-ELECTROLYTES 236 GRAM-22.74 GRAM-6.74 GRAM-5.86 GRAM SOLUTION Take as directed by [facility]- 2 gallon bowel prep POLYETHYLENE GLYCOL [...] been given programming opti ons by the [employer] device enrollment eligibility representative, Michele. At this time, there is no complication from the DRG trial. Recommendations/Plan: 1. Recommend to keep her appointment with Dr. Sanchez on 10/02/2018. 2. To contact the [employer] rep if she has any further question on programming. 09/28/2018: I, Dayana Ivan, am functioning as a curator medical museum for Yun Frey NP. I have reviewed and verified the above scribed note of my visit with this patient as record ed by Ms. Dayana Ivan. Jeanine Frey (Mr.) MSN, ACNP- Nurse Practitioner [facility] [address] [place] [address] documented in this enco unter Plan of [...]
--- OUTSIDE RECORDS SUMMARY | ~2020-07-04 | XMS | Encounter Summary ---
Demographics + + + | Address | [address] | | | [place] [address] | + + + | Home Phone [...] Providers + +------+ + | Care Medical Office Technology Instructor Name | Role | Phone | + +------+ + | Justo Vazquez MD | PCP | | + +------+ + Encounter Details +--------+ + + + + | Date | Type | Department | Care Team | Description | +--------+ + + + + | 07/26/ | MyChart | [facility] Comprehensive | Ilene Bright, | Labs | | 2017 | Encounter | Pain Center at | RAD TECHNOLOGIST [address] | | | | | [facility] | [place], [place] | | | | | [address] | [address] | | | | | [place] for [facility] | [phone] | | | | | and Healing, | | | | | | | | | | | | Floor [place], [place] | | | | | | [address] | | | | | | [phone] | | | +--------+ + + + [...]
--- OUTSIDE RECORDS SUMMARY | ~2020-07-04 | XMS | Encounter Summary ---
Demographics + + + | Address | [address] | | | [place] [address] | + + + | Home Phone [...] Team Providers + +------+ + | Care Lbd Teacher Name | Role | Phone | + +------+ + | Justo Vazquez MD | PCP | | + +------+ + Encounter Details +--------+ + + + + | Date | Type | Department | Care Team | Description | +--------+ + + + + | 09/25/ | Hospital | Radiology/Imaging | Aleta Rebollar MD [address] | | | 2018 | Encounter | Lab at [facility] [address] | | | | | [address] [facility] for | [place], [place] | | | | | Health and Healing, | [address] | | | | | [address] | [phone] | | | | | Floor [place], [place] | | | | | | [address] | | | | | | [phone] | | | +--------+ + + + [...]
--- OUTSIDE RECORDS SUMMARY | ~2020-07-04 | XMS | Encounter Summary ---
Demographics + + + | Address | [address] | | | [place] [address] | + + + | Home Phone [...] Team Providers + +------+ + | Care Pari Mutuel Ticket Cashier Name | Role | Phone | [...] | Diagnoses | Beulah | [employer] | | | | Therapy | CRPS | Janak Martinez MD | [address] | | | | | (complex | [address] | | | | | regional | [address] | Mailcode: | | | | | pain | Mailstop | [facility] | | | | | syndrome), | [id number] | for Health | | | | | lower limb | | and Healing, | | | | | Gait | [address] | Building [address] | | | | | disturbance | Phone: | [place], [place] | | | | | Muscle pain | [phone] | [address] | | | | | Procedures | Fax: | Phone: | | | | | PHYSICAL | [phone] | [phone] | | | | | THERAPY | [...] regional pain | | | | [facility] | [place] [address] | syndrome), lower | | | | [address] | [phone] | limb (Primary Dx) | | | | [facility] | | | | | | and Healing, | Specialist, Edu | | | | | Building [address], [address]st | Exercise [address] | | | | | Floor [place], [place] | [address] [place], | | | | | [address] | [place] [address] | | | | | [phone] | | | +--------+---------+ + + + [...] might be different f rom the original. [id number] BRODY FARAH Date of : 1990 Start of care: 02/14/2012 Date of onset: 02/14/2012 Referring/Attending Practitioner: Janak Riojas MD . Primary/Referral Diagnosis/ICD-9: 355.71B CRPS (complex regional pain syndrome), lower limb Insurance: Payor: [facility] Plan: BCBS OUT OF STATE Product Type: PP O Service period from: 02/14/2012 to: 08/12/2012 Number visits used/authorized: 02/23 [facility] PHYSICAL THERAPY PROGRESS NOTE SUBJECTIVE: [...] change in their status. Guillermo Sanon MSPT [facility] Outpatient Rehabilitation Services Mailcode: Ch3[facility] [address] [facility], [address] [place] [address] documented in this encounter Plan of Treatment Not on filedocumented as of this encounter Procedures + +--------+ + + + | Procedure Name | Priori | Date/Time | Associated Diagnosis | Comments | | | ty | | | | + +--------+ + + + | AR THERAPEUTIC | Routin | 05/24/2012 | CRPS (complex | | | EXERCISES | e | 6:23 PM | regional pain | | | | | PDT | syndrome), lower | | | | | | limb | | + +--------+ + + + | AR THERAPEUTIC | Routin | 05/24/2012 | CRPS [...]
--- OUTSIDE RECORDS SUMMARY | ~2020-07-04 | XMS | Encounter Summary ---
Demographics + + + | Address | [address] | | | [place] [address] | + + + | Home Phone [...] Providers + +------+ + | Care Data Warehouse Architect Name | Role | Phone | [...] | | | | | unspecified | [facility] | [address] | | | | | location | Rd | [facility] | | | | | Procedures | [place], [place] | Rd [place], | | | | | CONSULT TO | [address] | [place] | | | | | PAIN | | [address] | | | | | MANAGEMENT | | Phone: | | | | | | | [phone] | | | | | | | Fax: | | | | | | | [phone] | +--------+--------+ + + + + Encounter Details +--------+---------+ + + + | Date | Type | Department | Care Team | Description | +--------+---------+ + + + | 05/08/ | Office | [facility] Comprehensive | Alex Sanchez, | Complex regional | | 2018 | Visit | Pain Center at | ,PhD [address] | pain syndrome type 1 | | | | [place] | [facility] [address] | of left lower | | | | [address] | [place], [place] | extremity (Primary | | | | Center for Health | [address] | Dx); Pain of upper | | | | and Healing, | [phone] | abdomen; Intractable | | | | | | cyclical vomiting | | | | Floor [place], [place] | | with nausea; | | | | [address] | | Disturbance in sleep | | | | [phone] | | behavior; Abdominal | | | [...] hD - 05/08/2018 10:30 AM PDT [facility] Comprehensive Pain Center Return Visit Date: 05/08/2018 Chief Complaint Patient presents with Ankle pain Left Foot pain Left History of Present Illness: Tracie Farah is a 27 year old female, whose last appoi ntment at the [email or web address] was April 19, 2018, for [...] time that 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 Goes to [employer] college with a light load. Has been working at [employer], can' t work on [employer]. Has roommates. Allergies Allergen Reactions Morphine Anaphylaxis [...] by physician. Concentration is 150mg/mL. Compounded by [facility] ) KETOROLAC IM Inject into the muscle [...] and summary of old medical records (source: [employer]), as summarized in the body of the [...] by Sonia Key. Alex Sanchez MD PhD Proof Technician Anesthesiology and Pain Management [facility] documented in this encounter Plan of [...]
--- OUTSIDE RECORDS SUMMARY | ~2020-07-04 | XMS | Encounter Summary ---
Demographics + + + | Address | [address] | | | [place] [address] | + + + | Home Phone [...] Providers + +------+ + | Care Wool Mixer Name | Role | Phone | + +------+ + | Justo Vazquez MD | PCP | | + +------+ + Encounter Details +--------+ + + + + | Date | Type | Department | Care Team | Description | +--------+ + + + + | 12/07/ | Pharmacy | [facility] | | | | 2019 | Visit | [facility] | | | | | | [address] | | | | | | Mailcode: [place] | | | | | | [facility] and | | | | | | Healing, Building [address] | | | | | | [place], [place] | | | | | | [address] | | | | | | [phone] | | | +--------+ + + + [...]
--- OUTSIDE RECORDS SUMMARY | ~2020-07-04 | XMS | Encounter Summary ---
Demographics + + + | Address | [address] | | | [place] [address] | + + + | Home Phone [...] Providers + +------+ + | Care Hand Bunch Maker Name | Role | Phone | [...] [address] | | | | | [facility] | [facility], | | | | | [address] | [place] [address] | | | | | [facility] | [phone] | | | | | and Healing, | | | | | | [facility] | | | | | | [place], [place] | | | | | | [address] | | | | | | [phone] | | | +--------+ + + + [...]
--- OUTSIDE RECORDS SUMMARY | ~2020-07-04 | XMS | Encounter Summary ---
Demographics + + + | Address | [address] | | | [place] [address] | + + + | Home Phone [...] Team Providers + +------+ + | Care 3Rd Pressman Name | Role | Phone | + [...] | | syndrome | [place] | [facility] | | | | | type 1 of | Rd | Rd [place], | | | | | left lower | [place], [place] | [place] | | | | | extremity | [address] | [address] | | | | | Procedures | Phone: | Phone: | | | | | REQUEST TO | [phone] | [phone] | | | | | SURGERY | Fax: | Fax: | | | | | WRAP YARN SORTER | [phone] | [phone] | +--------+---------+ + + + + Encounter Details +--------+---------+ + + + | Date | Type | Department | Care Team | Description | +--------+---------+ + + + | 12/07/ | Office | [facility] Comprehensive | Eulogio | Complex regional | | 2019 | Visit | Pain Center at | MD Irene [address] | pain syndrome type 1 | | | | [facility] | [address] [place], | of left lower | | | | [address] | [place] [address] | extremity (Primary | | | | [facility] | [phone] | Dx); S/P insertion | | | | and Healing, | | of spinal cord | | | | Building , | | stimulator | | | | Floor [place], [place] | | | | | | [address] | | | | | | [phone] | | | +--------+---------+ + + + [...] Lujan MD - 12/07/2018 9:10 AM PST [facility] Return Visit Date: 12/07/2018 Chief Complaint Patient presents with Back pain Pain in left leg History of Present Illness: Tracie Farah is a 28 year old female, whose last appoi ntment at the [facility] was December 05, 2018, for a procedure [...] her 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 Goes to [employer] with a light load. Has been working at [employer], can' t work on [employer]. Has roommates. Allergies Allergen Reactions Morphine Anaphylaxis [...] and summary of old medical records (source: qcue), as summarized in the body of the [...] up on December [address] Bethany Crotez, Sonia Key, assisted with the templating of this note for Irene Krishnan MD but was not physically present for the encounter. Irene Krishnan MD [facility] [place] [id number] [facility], 4th Floor Mail Code: [address] [phone] documented in thi s encounter Plan of Treatment Not on filedocumented as of this encounter Visit Diagnoses + + | Diagnosis | + + | Complex regional pain syndrome type 1 of left lower extremity - Primary | + + | S/P insertion of spinal cord stimulator | + + documented in this encounter
--- OUTSIDE RECORDS SUMMARY | ~2020-07-04 | XMS | Encounter Summary ---
Demographics + + + | Address | [address] | | | [place] [address] [...] Providers + +------+ + | Care Plate Drying Machine Tender Name | Role | Phone [...] [address] | | | | | [facility] for | [place], [place] | | | | | Health and Healing, | [address] | | | | | | [phone] | | | | | [place], [place] | | | | | | [address] | | | | | | [phone] | | | +--------+ + + + [...]
--- OUTSIDE RECORDS SUMMARY | ~2020-07-04 | XMS | Encounter Summary ---
Demographics + + + | Address | [address] | | | [place] [address] | + + + | Home Phone [...] + + | 09/25/ | Pharmacy | [facility] | | | | 2018 | Visit | [facility] | | | | | | [address] | | | | | | Mailcode: Etters | | | | | | [facility] and | | | | | | Healing, Building 1 | | | | | | [place], [place] | | | | | | [address] | | | | | | [phone] | | | +--------+ + + + [...]
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
--- OUTSIDE RECORDS SUMMARY | ~2020-07-04 | XMS | Encounter Summary ---
Demographics + + + | Address | [address] | | | [place] [address] | + + + | Home Phone [...] Team Providers + +------+ + | Care Adjunct Mathematics Instructor Name | Role | Phone | [...] | Request (ketamine) | | | | [facility] | [address] | | | | | [address] | [place], [place] | | | | | [facility] | [address] | | | | | and Healing, | [phone] | | | | | | | | | | | Floor [place], [place] | | | | | | [address] | | | | | | [phone] | | | +--------+ + + + [...]
--- OUTSIDE RECORDS SUMMARY | ~2020-07-04 | XMS | Encounter Summary ---
Demographics + + + | Address | [address] | | | [place] [address] | + + + | Home Phone [...] Providers + +------+ + | Care Network Operations Lead Name | Role | Phone | [...] 2016 | | Center at [facility] [address] | MD Melissa | | | | | [address] [facility] | | | | | | for Health and | | | | | | Healing, Building 2 | | | | | | | | | | | | [address] | | | | | | [phone] | | | +--------+ + + + [...]
--- OUTSIDE RECORDS SUMMARY | ~2020-07-04 | XMS | Encounter Summary ---
Demographics + + + | Address | [address] | | | [place] [address] | + + + | Home Phone [...] Providers + +------+ + | Care Information Services Assistant Name | Role | Phone [...] ogy | | Ava Torres, | Chh2 [address] | | | | | Constipation | [address] | [address] | | | | | , | [address] | [place] for | | | | | unspecified | [address] | Health and | | | | | constipation | [facility] [place] | Healing, | | | | | type | [address] | Building 2 | | | | | Procedures | | [place], [place] | | | | | CONSULT TO | | [address] | | | | | GI PROCEDURE | | Phone: | | | | | UNIT: | | [phone] | | | | | ANORECTAL | | Fax: | | | | | MANOMETRY | | [phone] | | | | | [place] ANAL | | | | | | [...] | ogy | | [place], | [address] | | | | | Gastroparesi | Allegra Nieto, | [address] | | | | | s | [place] [address] | Center for | | | | | | [address] | Health and | | | | | | [place], | Healing, | | | | | | [place] [address] | Building 2 | | | | | | Phone: | [place], [place] | | | | | | [phone] | [address] | | | | | | Fax: | Phone: | | | | | | [phone] | [phone] | | | | | | | Fax: | | | | | | | [phone] | +--------+--------+ + + + + Encounter Details +--------+---------+ + + + | Date | Type | Department | Care Team | Description | +--------+---------+ + + + | 08/10/ | Office | Digestive Health | Ava Carbajal | Constipation, | | 2015 | Visit | Center at [facility] [address] | MD Melissa | unspecified | | | | [facility] | | constipation type | | | | for Health and | | (Primary Dx) | | | | Healing, Building 2 | | | | | | [place], [place] | | | | | | [address] | | | | | | [phone] | | | +--------+---------+ + + + [...] in their attached note. Celia Lin MD Implement Mechanicoccupational therapy professor Division of Gastroenterology & Hepatology [facility] va Carbajal MD - 08/09/2016 8:40 PM PDT Gastroenterology Initial Clinic Note 08/09/2016 CHIEF COMPLAINT/IDENTIFICATION: "Gastroparesis"-Nausea emesis and abdominal pain -SECOND O GERMAINE Dr. Flores-Radha [facility] PCP: HANDY Villalpando HISTORY OF [...] in [facility] Garcia GI at [facility]. Patient has hx of GERD which [...] CT abdomen w contrast done at [facility] on 10/23/15 showing large stool burden [...] GI MDS: Dr. Nyla Garcia GI Dr. [facility] LABS: -increased CRP 06/19/16: Lipase-normal [...] form versus functional syndrome. 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
--- OUTSIDE RECORDS SUMMARY | ~2020-07-04 | XMS | Encounter Summary ---
Demographics + + + | Address | [address] | | | [place] [address] | + + + | Home Phone [...] 2017 | | Pain Center at | PROFESSOR OF OCEANOGRAPHY [address] | | | | | [facility] | [place], [place] | | | | | [address] | [address] | | | | | [facility] | [phone] | | | | | and Healing, | | | | | | Building | | | | | | [facility] [place] | | | | | | [address] | | | | | | [phone] | | | +--------+ + + + [...]
--- OUTSIDE RECORDS SUMMARY | ~2020-07-04 | XMS | Encounter Summary ---
Demographics + + + | Address | [address] | | | [place] [address] | + + + | Home Phone [...] Providers + +------+ + | Care Ingot Car Operator Name | Role | Phone | [...] Rd | | | | | | [place], [place] | | | | | | [address] | | | +--------+ + + + [...]
--- OUTSIDE RECORDS SUMMARY | ~2020-07-04 | XMS | Encounter Summary ---
Demographics + + + | Address | [address] | | | [place] [address] | + + + | Home Phone [...] | | Pain | Complex | Ilene, ELECTRONIC EQUIPMENT REPAIRMEN | Hanna M, | | | | Management | regional | [address] | PSY D [address] | | | | | pain | Ave | [address] | | | | | syndrome | [place], [place] | [place], [place] | | | | | type 1 of | [address] | [address] Phone: | | | | | left lower | Phone: | [phone] | | | | | extremity | [phone] | Fax: | | | | | Intractable | Fax: | [phone] | | | | | cyclical | [phone] | | | | | | vomiting [...] Pain Medicine | Diagnoses | Chasity, | Cylinder Press Operator Helper Chh1 | | | | / Pain | Abdominal | MD Kenny | [address] | | | | Management | pain, | [address] [facility] | [facility] | | | | | unspecified | [facility] | for Health | | | | | location | Rd | and Healing, | | | | | Procedures | [place], [place] | [facility] | | | | | CONSULT TO | [address] | 1,15th Floor | | | | | PAIN | | [facility] [place] | | | | | MANAGEMENT | | [address] | | | | | | | Phone: | | | | | | | [phone] | | | | | | | Fax: | | | | | | | [phone] | +--------+--------+ + + + + Encounter Details +--------+---------+ + + + | Date | Type | Department | Care Team | Description | +--------+---------+ + + + | 04/25/ | Office | [facility] | Ilene Bright, | Abdominal pain, | | 2017 | Visit | Pain Center at | ELECTRONIC EQUIPMENT REPAIRMEN [address] | unspecified location | | | | [facility] | [place], [place] | (Primary Dx); | | | | [address] | [address] | Complex regional | | | | [place] [facility] | [phone] | pain syndrome type 1 | | | | and Healing, | | of left lower | | | | Building 1,15 | | extremity; | | | | Floor [place], [place] | | Intractable cyclical | | | | [address] | | vomiting with | | | | [phone] | | nausea; | | | | [...] encounter Patient Instructions Patient Instructions Ilene Bright, ELECTRONIC EQUIPMENT REPAIRMEN - 04/25/2017 1:35 PM PDTKelly, Nice to [...] Freddie Guadalupe MD [email or web address] Ilene Childs DNP, ELECTRONIC EQUIPMENT REPAIRMEN-C [facility] [address] [place] [address] documented in this encounter Progress Notes Ilene Bright FNP - 04/25/2017 1:35 PM PDTFormatting of this note might be different fr om the original. Date: 04/25/2017 was referred for pain management consultation by Kenny Gaspar MD [address] [place] [address] Reason for consult: abdominal pain Chief Complaint Patient presents with Abdominal pain Back pain History of Present Illness: Tracie Farah is a 26 year old female with a history of depression, complex regional pain syndrome (left lower extremity) for this she follows with a neurologist at [facility] in [facility]. She has been stable on her [...] effective treatments include: medication (toradol). lives in [place], [place] alone and with her children. She receives disability. does not have specific goals for today's appointment. 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 No Do you drink alcohol to [...] Trial spinal cord stimulator leads 08/02/2012 [facility], Surgeon: Janak Riojas MD Cholecystectomy Appendectomy [...] History Social History Narrative Single. Goes to [employer] with a light load. Has been working at [employer], can' t work on [employer]. Has roommates. Allergies Allergen Reactions Morphine Anaphylaxis [...] by physician. Concentration is 150mg/mL. Compounded by [facility] ) LAMOTRIGINE 200 MG TABLET Take [...] SOLUTION Take as directed by [facility]- 2 gallon bowel prep POLYETHYLENE GLYCOL 3350 17 GRAM/DOSE ORAL POWDER Take 17 g by mouth once daily. PROMETHAZINE 12.5 MG TABLET Take 12.5 mg by mouth four times daily as needed for nausea/vom iting. SUCRALFATE 1 GRAM TABLET Take 1 g by mouth four times daily. Radiology/Diagnostic Tests: MR ENTEROGRAPHY ABDOMEN AND PELVIS WWO CONTRAST Order: [id number] Performed: 01/31/2017 4:34 PM Status: Final result [...] 3:50 PM X-RAY ABDOMEN 1 VIEW Order: [id number] Performed: 03/19/2017 6:52 AM Status: Final result [...] and summary of old medical records (source: [email or web address]), as summarized in the body of the [...] possible opioid-sparing effects (Stevie Paulino et al.C TherMark, (8):1655-70, 2007) and evidence that it can [...] TERESA-C [facility] [address] [place] [address] Display Progress Note in MyChart: No documented [...]
--- OUTSIDE RECORDS SUMMARY | ~2020-07-04 | XMS | Encounter Summary ---
Demographics + + + | Address | [address] | | | [place] [address] | + + + | Home Phone [...] Providers + +------+ + | Care Tool Design Draftsperson Name | Role | Phone | + [...] Closed | | Physical | Diagnoses | eBulah | Edu Pt Watch Assembly Inspector | | | | Therapy | CRPS | Janak Martinez MD | [address] | | | | | (complex | [address] | | | | | regional | [address] | Mailcode: | | | | | pain | Mailstop | [facility] | | | | | syndrome), | [id number] | for Health | | | | | lower limb | [place], [place] | and Healing, | | | | | Gait | [address] | Building 1 | | | | | disturbance | Phone: | [place], [place] | | | | | Muscle pain | [phone] | [address] | | | | | Procedures | Fax: | Phone: | | | | | PHYSICAL | [phone] | [phone] | | | | | THERAPY | [...] | | | | [place] | [place] [address] | syndrome), lower | | | | [address] | [phone] | limb (Primary Dx) | | | | [facility] | | | | | | and Healing, | | | | | | Building 1, | | | | | | Floor [place], [place] | | | | | | [address] | | | | | | [phone] | | | +--------+---------+ + + + [...] might be different f rom the original. [id number] BRODY FARAH Date of : 1990 Start of care: 02/14/2012 Date of onset: 02/14/2012 Referring/Attending Practitioner: Janak Riojas MD . Primary/Referral Diagnosis/ICD-9: 355.71B CRPS (complex regional pain syndrome), lower limb Insurance: Payor: [facility] [employer] Plan: BCBS OUT OF STATE Product Type: PP O Service period from: 02/14/2012 to: 08/12/2012 Number visits used/authorized: 04/25 [facility] PHYSICAL THERAPY PROGRESS NOTE [...] [facility] Mailcode: Ch3p [address] [facility], [address] [place] [address] documented in this encounter Plan of Treatment Not on filedocumented as of this encounter Procedures + +--------+ + + + | Procedure Name | Priori | Date/Time | Associated Diagnosis | Comments | | | ty | | | | + +--------+ + + + | MD THERAPEUTIC | Routin | 06/13/2012 | CRPS [...]
--- OUTSIDE RECORDS SUMMARY | ~2020-07-04 | XMS | Encounter Summary ---
Demographics + + + | Address | [address] | | | [place] [address] | + + + | Home Phone [...] Providers + +------+ + | Care Wrapper Counter Name | Role | Phone | + +------+ + | Justo Vazquez MD | PCP | | + +------+ + Encounter Details +--------+ + + + + | Date | Type | Department | Care Team | Description | +--------+ + + + + | 12/02/ | Document-Sc | Health Information | Unknown . | | | 2017 | anned | Services [id number] | | | | | | [address] | | | | | | Mailcode: OP17A | | | | | | [facility] | | | | | | [place], [place] | | | | | | [address] | | | | | | [phone] | | | +--------+ + + + [...]
--- OUTSIDE RECORDS SUMMARY | ~2020-07-04 | XMS | Encounter Summary ---
Demographics + + + | Address | [address] | | | [place] [address] | + + + | Home Phone [...] Providers + +------+ + | Care Forest Officer Name | Role | Phone | [...] | | 2016 | | Center at [facility] [address] | MD Melissa | | | | | [address] | | | | | | for Health and | | | | | | Healing, Building 2 | | | | | | [place], [place] | | | | | | [address] | | | | | | [phone] | | | +--------+ + + + [...]
--- OUTSIDE RECORDS SUMMARY | ~2020-07-04 | XMS | Encounter Summary ---
Demographics + + + | Address | [address] | | | [place] [address] | + + + | Home Phone [...] + +------+ + | Care Business Office Assistant Name | Role | Phone [...] | | | | | extremity | [address] | [address] | | | | | Muscle pain | Phone: | Phone: | | | | | Procedures | [phone] | [phone] | | | | | REQUEST TO | Fax: | Fax: | | | | | SURGERY | [phone] | [phone] | | | | | MORTGAGE LOAN REVIEWER | | | | | | | [...] 12/27/ | Procedure | Pain Center at [facility] | Alex Sanchez, | Pain in left leg; | | 2017 | | [address] | ,PhD [address] | Procedure | | | | Center for Health | [facility] | | | | | and Healing, | [place], [place] | | | | | [facility] | [address] | | | | | [place], [place] | [phone] | | | | | [address] | | | | | | [phone] | | | +--------+ + + + [...] note mi nayelit be [facility] Inst[facility] - Post Interventional Procedure Date: 12/27/2017 Name: Tracie Farah Date of : 1990 Procedure Performed: trigger point injection and popliteal/sciatic block. Procedure Provider: Alex Sanchez MD,PhD If you have any problems you believe are associated with your procedure tonight, Please call the Hospital Senior Geotechnical Engineer, and ask for the Pain Management [...] paper. Please fax the pain diary to [phone] or attach a scanned image of it to a P[employer] message to your doct or.. The area [...] to the larry ent. David Linares MD [facility] documented in this encounter Progress Notes Alex Sanchez MD,PhD - 12/27/2017 3:00 PM PSTI was present for the entire procedure ( popliteal nerve block and abdominal scar neuroma injection) and all bocanegra elements of this vis it. I reviewed the documentation of the other LAY OUT WORKER providers and concur with Dr. Linares's findings. I edited his note. Alex Sanchez MD,PhD Public Speaking Instructor Anesthesiology and Pain Management [facility] David Pennington MD - 12/27/2017 3:00 PM PSTPROVIDER OPERATIVE NOTE Date: December 27, 2017 Location: [facility] Procedure Room Tracie Farah [id number] :1990, presents to clinic for: PROCEDURE: Popliteal/sciatic [...] scar neuroma ATTENDING PHYSICIAN: Alex Sanchez MD,PhD IN STORE BANKER: Fellow Daivd Linares MD ANESTHESIA: sedation Isadora Bergeron RN. [...] sedation. Ms. Farah was escorted to the [facility] Procedure R oom, where she was [...] procedure. Images were saved, and sent to [employer]. Ms. Farah was transported to the [facility] Center post-procedure recovery area. [...] by physician. Concentration is 150mg/mL. Compounded by [facility] ( [phone]) LEVONORGESTREL 20 MCG/24 HR (5 YEARS) INTRAUTERINE [...] [facility] Digestive [facility]- 2 gallon bowel prep POLYETHYLENE [...] PRE-SEDATION: Date: December 27, 2017 Tracie Farah [id number] 1990 ALLERGIES: Morphine Previous reaction to Sedation/Analgesia: [...] ride here with you? yes Who?: mother RN/EMAIL ENGINEER History: 1. Has your pain changed from [...] Date: December 27, 2017 Tracie Ocampojulita Farah [id number] 1990 See RN /EMAIL ENGINEER Pre-Sedation Note. IV ACCESS:Right subc PAC. BASELINE VS: See Sedation Flow Sheet. Tracie Donaldson Sofi [id number] 1990, presents to clinic for: Procedure: left [...] started. 1530 Midazolam 2mg IV given 1530 Szeheqhd224 mcg IV given 1534 Midazolam 1mg IV given 1546 Midazolam 1mg IV given 1546 Navmdlis171 mcg IV given 1548 Fentanyl 100 mcg IV given bupivacaine 0.5%, 9mL given, 21mL wasted Kenalog 40mg/mL 1mL, 0 mL wasted 1555 abdominal scar trigger point completed. 1558 Fentanyl 50 mcg IV given 1601 Fentanyl 50 mcg IV given Booker placed for Popliteal Nerve Block.. Placement verified [...] + +--------+ + + + | RI INJECTION(S), | Routin | 12/27/2017 | Complex regional | | | ANESTHETIC AGENT(S) | e | 4:32 PM | pain syndrome type 1 | | | AND/OR STEROID; | | PST | of left lower | | | OTHER PERIPHERAL | | | extremity | | | NERVE OR BRANCH | | | | | + +--------+ + + + | RI ROPIVACAINE HCL | Routin | 12/27/2017 | Complex regional | | | INJ 0.5% | e | 4:32 PM | pain syndrome type 1 | | | | | PST | of left lower | | | | | | extremity | | + +--------+ + + + | RI MOD SEDATION | Routin | 12/27/2017 | Complex regional | | | >=5YRS SAME MD/QUAL | e | 4:32 PM | pain syndrome type 1 | | | PROV; INIT 15 MIN | | PST | of left lower | | | | | | extremity | | + +--------+ + + + documented in this encounter Results LAY OUT WORKER MISC PROCEDURE (12/27/2017 3:28 PM PST) + [...]
--- OUTSIDE RECORDS SUMMARY | ~2020-07-04 | XMS | Encounter Summary ---
Demographics + + + | Address | [address] | | | [place] [address] | + + + | Home Phone [...] Team Providers + +------+ + | Care Obstetrics Specialist Name | Role | Phone | + +------+ + | Justo Vazquez MD | PCP | | + +------+ + Encounter Details +--------+ + + + + | Date | Type | Department | Care Team | Description | +--------+ + + + + | 12/07/ | Motion Picture Cameraman | [facility] | Ava Carbajal | | | 2016 | | [address] MD | | | | | [address] [facility] for | | | | | | Health and Healing, | | | | | | Building [address] | | | | | | [place], [place] | | | | | | [address] | | | | | | [phone] | | | +--------+ + + + [...]
--- OUTSIDE RECORDS SUMMARY | ~2020-07-04 | XMS | Encounter Summary ---
Demographics + + + | Address | [address] | | | [place] [address] | + + + | Home Phone [...] Providers + +------+ + | Care Recordist Chief Name | Role | Phone | + +------+ + | Justo Vazquez MD | PCP | | + +------+ + Encounter Details +--------+ + + + + | Date | Type | Department | Care Team | Description | +--------+ + + + + | 03/11/ | Telephone | [facility] | Zeeshan Mahoney MD | | | 2019 | | Pain Center at | [address] | | | | | [facility] | [facility], | | | | | [address] | [place] [address] | | | | | [place] [facility] | [phone] | | | | | and Healing, | | | | | | | | | | | | [place], [place] | | | | | | [address] | | | | | | [phone] | | | +--------+ + + + [...]
--- OUTSIDE RECORDS SUMMARY | ~2020-07-04 | XMS | Encounter Summary ---
Demographics + + + | Address | [address] | | | [place] [address] | + + + | Home Phone [...] Providers + +------+ + | Care Supervisor Road Administrator Name | Role | Phone | [...] Rd | | | | | | [place], [place] | | | | | | [address] | | | +--------+ + + + [...]
--- OUTSIDE RECORDS SUMMARY | ~2020-07-04 | XMS | Encounter Summary ---
Demographics + + + | Address | [address] | | | [place] [address] | + + + | Home Phone [...] Providers + +------+ + | Care Marine Animal Trainer Name | Role | Phone | + +------+ + | Justo Vazquez MD | PCP | | + +------+ + Encounter Details +--------+ + + + + | Date | Type | Department | Care Team | Description | +--------+ + + + + | 08/30/ | Documentati | Pain Center at [facility] | Jamel Madden G, | | | 2018 | on | [address] | PhD [address] | | | | | Center for Health | [place], [place] | | | | | and Healing, | [address] | | | | | | [phone] | | | | | Floor [place], [place] | | | | | | [address] | | | | | | [phone] | | | +--------+ + + + [...]
--- OUTSIDE RECORDS SUMMARY | ~2020-07-04 | XMS | Encounter Summary ---
Demographics + + + | Address | [address] | | | [place] [address] | + + + | Home Phone [...] Providers + +------+ + | Care Senior Marketing Coordinator Name | Role | Phone [...] | | Complex | Alex Alba, | [facility] [address] | | | | | regional | ,PhD [address] | [address] | | | | | pain | [address] | | | | | syndrome | [address] | [address], | | | | | type 1 of | Rd | Basement | | | | | left lower | [place], [place] | [place], [place] | | | | | extremity | [address] | [address] | | | | | Muscle pain | Phone: | Phone: | | | | | Procedures | [phone] | [phone] | | | | | NM BONE | Fax: | Fax: | | | | | &/OR JOINT | [phone] | [phone] | | | | | IMAGING | [...] | | 2018 | Encounter | at [facility] [address] | ,PhD [address] [facility] | | | | | [address] | [address] | | | | | [address], | [place], [place] | | | | | [facility], | [address] | | | | | [place] [address] | [phone] | | | | | [phone] | | | +--------+ + + + [...]
--- OUTSIDE RECORDS SUMMARY | ~2020-07-04 | XMS | Encounter Summary ---
Demographics + + + | Address | [address] | | | [place] [address] | + + + | Home Phone [...] Team Providers + +------+ + | Care Talent Acquisition Relationship Manager Name | Role | Phone | [...] + | 09/14/ | Telephone | [facility] Ilene | Alex Sanchez, | Education procedure | | 2018 | | Pain Center at | ,PhD [address] | (preprocedure | | | | Former[facility] | [address] | education SCS) | | | | [address] | [place], [place] | | | | | [facility] | [address] | | | | | and Healing, | [phone] | | | | | | | | | | | Floor [place], [place] | | | | | | [address] | | | | | | [phone] | | | +--------+ + + + [...]
--- OUTSIDE RECORDS SUMMARY | ~2020-07-04 | XMS | Encounter Summary ---
Demographics + + + | Address | [address] | | | [place] [address] | + + + | Home Phone [...] | Pain Center at | ,PhD [address] [facility] | sig) | | | | [facility] | [address] | | | | | [address] | [place], [place] | | | | | [facility] | [address] | | | | | and Martina, | [phone] | | | | | [facility] | | | | | | Floor [place], [place] | | | | | | [address] | | | | | | [phone] | | | +--------+ + + + [...]
--- OUTSIDE RECORDS SUMMARY | ~2020-07-04 | XMS | Encounter Summary ---
Demographics + + + | Address | [address] | | | [place] [address] | + + + | Home Phone [...] Team Providers + +------+ + | Care Vigoureux Printer Name | Role | Phone | [...] | | | | | David [address] | | | | | | [address] | | | | | | Liane Cai, | | | | | | [address] [place] [address], | | | | | | [place] [address] | | | | | | [phone] | | | +--------+ + + + [...]
--- OUTSIDE RECORDS SUMMARY | ~2020-07-04 | XMS | Encounter Summary ---
Demographics + + + | Address | [address] | | | [place] [address] | + + + | Home Phone [...] Providers + +------+ + | Care Litigation Examiner Name | Role | Phone | [...] | Orthopedics | Diagnoses | Sdrulla, | [place], | | | | | Complex | Alex Alba, | Ranjeet Odom MD | | | | | regional | ,PhD [address] | [address] | | | | | pain | [address] | Ave | | | | | syndrome | [address] | [place], [place] | | | | | type 1 of | Rd | [address] | | | | | left lower | [place], [place] | Phone: | | | | | extremity | [address] | [phone] | | | | | Procedures | Phone: | Fax: | | | | | CONSULT TO | [phone] | [phone] | | | | | ORTHOPEDICS | Fax: | | | | | | AND | [phone] | | | | | | REHABILITATI [...] | ankle results) | | | | [facility] | [address] | | | | | [address] | [place], [place] | | | | | [facility] | [address] | | | | | and Healing, | [phone] | | | | | | | | | | | Floor [place], [place] | | | | | | [address] | | | | | | [phone] | | | +--------+ + + + [...]
--- OUTSIDE RECORDS SUMMARY | ~2020-07-04 | XMS | Encounter Summary ---
Demographics + + + | Address | [address] | | | [place] [address] | + + + | Home Phone [...] Team Providers + +------+ + | Care Improvement Analyst Name | Role | Phone | [...] | Diagnoses | Beulah | Edu Pt Gambling Monitor | | | | Therapy | CRPS | Janak Martinez MD | [address] | | | | | (complex | [address] | | | | | regional | [address] | Mailcode: | | | | | pain | Mailstop | [facility] | | | | | syndrome), | [id number] | for Health | | | | | lower limb | [place], [place] | and Healing, | | | | | Gait | [address] | [address] | | | | | disturbance | Phone: | [place], [place] | | | | | Muscle pain | [phone] | [address] | | | | | Procedures | Fax: | Phone: | | | | | PHYSICAL | [phone] | [phone] | | | | | THERAPY | [...] pain | | | | [facility] | [place] [address] | syndrome), lower | | | | [address] | [phone] | limb (Primary Dx) | | | | Center for Health | | | | | | and Healing, | | | | | | Building 1, 1st | | | | | | Floor [place], [place] | | | | | | [address] | | | | | | [phone] | | | +--------+---------+ + + + [...] might be different f rom the original. [id number] RBODY FARAH Date of : 1990 Start of care: 02/14/2012 Date of onset: 02/14/2012 Referring/Attending Practitioner: Janak Riojas MD . Primary/Referral Diagnosis/ICD-9: 355.71B CRPS (complex regional pain syndrome), lower limb Insurance: Payor: [facility] Plan: BCBS OUT OF STATE Product Type: PP O Service period from: 02/14/2012 to: 08/12/2012 Number visits used/authorized: 05/25 [facility] PHYSICAL THERAPY PROGRESS NOTE [...] their status. Guillermo Sanon [facility] Outpatient Rehabilitation Services Mailcode: Ch3p [address] [facility], 1st Floor [facility] [address] documented in this encounter Plan of Treatment Not on filedocumented as of this encounter Procedures + +--------+ + + + | Procedure Name | Priori | Date/Time | Associated Diagnosis | Comments | | | ty | | | | + +--------+ + + + | MS MANUAL THER | Routin | 06/09/2012 | CRPS (complex | | | TECH,1+REGIONS,EA 15 | e | 2:46 PM | regional pain | | | MIN | | PDT | syndrome), lower | | | | | | limb | | + +--------+ + + + | MS THERAPEUTIC | Routin | 06/09/2012 | CRPS [...]
--- OUTSIDE RECORDS SUMMARY | ~2020-07-04 | XMS | Encounter Summary ---
Demographics + + + | Address | [address] | | | [place] [address] | + + + | Home Phone [...] Team Providers + +------+ + | Care Bull Float Finisher Name | Role | Phone | + +------+ + | Justo Vazquez MD | PCP | | + +------+ + Encounter Details +--------+ + + + + | Date | Type | Department | Care Team | Description | +--------+ + + + + | 12/07/ | Telephone | [facility] | Alex Sanchez, | | | 2019 | | Pain Center at | ,PhD [address] | | | | | [facility] | [address] | | | | | [address] | [place], [place] | | | | | [place] for [facility] | [address] | | | | | and Healing, | [phone] | | | | | | | | | | | Floor [place], [place] | | | | | | [address] | | | | | | [phone] | | | +--------+ + + + [...]
--- OUTSIDE RECORDS SUMMARY | ~2020-07-04 | XMS | Encounter Summary ---
Demographics + + + | Address | [address] | | | [place] [address] | + + + | Home Phone [...] Providers + +------+ + | Care Laborer Airport Maintenance Name | Role | Phone | + +------+ + | Justo Vazquez MD | PCP | | + +------+ + Encounter Details +--------+ + + + + | Date | Type | Department | Care Team | Description | +--------+ + + + + | 01/02/ | Telephone | [facility] | Ilene Bright, | | | 2019 | | Pain Center at | CAREER INFORMATION SPECIALIST [address] | | | | | [facility] | [place], [place] | | | | | [address] | [address] | | | | | [place] for [facility] | [phone] | | | | | and Healing, | | | | | | | | | | | | Floor [place], [place] | | | | | | [address] | | | | | | [phone] | | | +--------+ + + + [...]
--- OUTSIDE RECORDS SUMMARY | ~2020-07-04 | XMS | Encounter Summary ---
Demographics + + + | Address | [address] | | | [place] [address] | + + + | Home Phone [...] Providers + +------+ + | Care Pneumatic Tester Name | Role | Phone | [...] 2016 | | Pain Center at | CREDIT PORTFOLIO MANAGER [address] | | | | | [facility] | [place], [place] | | | | | [address] | [address] | | | | | [facility] | [phone] | | | | | and Healing, | | | | | | Building | | | | | | [place], [place] | | | | | | [address] | | | | | | [phone] | | | +--------+ + + + [...]
--- OUTSIDE RECORDS SUMMARY | ~2020-07-04 | XMS | Encounter Summary ---
Demographics + + + | Address | [address] | | | [place] [address] | + + + | Home Phone [...] Team Providers + +------+ + | Care Ethylbenzene Oxidizer Name | Role | Phone | + [...] | on | Center at [facility] [address] | [address] | | | | | [address] [place] | [facility] [place] | | | | | for Health and | [address] | | | | | Healing, Building 2 | [phone] | | | | | [place], [place] | | | | | | [address] | | | | | | [phone] | | | +--------+ + + + [...]
--- OUTSIDE RECORDS SUMMARY | ~2020-07-04 | XMS | Encounter Summary ---
Demographics + + + | Address | [address] | | | [place] [address] | + + + | Home Phone [...] Providers + +------+ + | Care Scraper Loader Operator Name | Role | Phone | [...] | Pain Center at | [address] | | | | | [facility] | [address] [place] [address] | | | | | [address] | [place], [place] | | | | | Center for Health | [address] | | | | | and Healing, | [phone] | | | | | [facility] | | | | | | Floor [place], [place] | | | | | | [address] | | | | | | [phone] | | | +--------+ + + + [...]
--- OUTSIDE RECORDS SUMMARY | ~2020-07-04 | XMS | Encounter Summary ---
Demographics + + + | Address | [address] | | | [place] [address] | + + + | Home Phone [...] Providers + +------+ + | Care Clinic Office Manager Name | Role | Phone | [...] | 2015 | Encounter | Center at [facility] [address] | MD Melissa | | | | | [address] [facility] | | | | | | for Health and | | | | | | Healing, [address] | | | | | | [place], [place] | | | | | | [address] | | | | | | [phone] | | | +--------+ + + + [...]
--- OUTSIDE RECORDS SUMMARY | ~2020-07-04 | XMS | Encounter Summary ---
Demographics + + + | Address | [address] | | | [place] [address] | + + + | Home Phone [...] Team Providers + +------+ + | Care Checker Name | Role | Phone | [...] + + | 12/05/ | Hospital | [facility] | Alex Sanchez, | | | 2019 | Encounter | STAY [address] | ,PhD [address] [facility] | | | | | Courtney Mailcode: [facility] | [address] | | | | | [facility] | [place], [place] | | | | | Health and [facility], | [address] | | | | | [place] [address] | [phone] | | | | | [place], [place] | | | | | | [address] | | | | | | [phone] | | | +--------+ + + + [...] s/p successful DRG trial lead system with DP7 Digital System on 09/25/2018. No changes in H&P, [...] OPERATIVE NOTE Date: December 05, 2018 Location: [facility] [place] | | | Tracie Farah [id number] :1990, presents to clinic | | | for: Dorsal root ganglion stimulator implant PROCEDURE: Dorsal | | | root ganglion stimulator implant PRE-OPERATIVE DIAGNOSIS: Complex | | | regional Pain syndrome type 1 of left lower extremity | | | POST-OPERATIVE DIAGNOSIS: Complex regional Pain syndrome type 1 of | | | left lower extremity ATTENDING PHYSICIAN: Alex Sanchez | | | HEAT ENGINEERING TEACHER: Arben Valerio MD ANESTHESIA: sedation by IVIS Cole | | | Carmen, supervised by lance crewmember/mlrs sergeant Ilir Valdes. | | | FINDINGS: Appropriate [...] sedation. Ms. Farah was escorted to the [facility] | | | [place], where [...] to the | | | [facility] senior outside sales representative. A test stimulation was [...] recovery. Images were saved, and sent to [employer]. | | | Alex Sanchez (attending) was present for the entire procedure. | | | Arben Valerio MD I was present for the entire procedure | | | (spinal cord stimulator implantation with DRG leads at left L4 and | | | L5) and all bocanegra elements of this visit. I reviewed the | | | documentation of the other TIRE SORTER providers and concur with Dr. | | | Iman's findings. I edited his note. Alex Sanchez, | | | ,PhD Bounty Hunter Anesthesiology and Pain Management | | | [facility] | | + + + [...] + + | JOSE ANTONIO MIN | [address] | [place] [address] | | | OF CARE TESTS | [...]
--- OUTSIDE RECORDS SUMMARY | ~2020-07-04 | XMS | Encounter Summary ---
Demographics + + + | Address | [address] | | | [place] [address] | + + + | Home Phone [...] Providers + +------+ + | Care Freight Trucker Name | Role | Phone | [...] | 2015 | Encounter | Center at [facility] [address] | MD Melissa | | | | | [address] [facility] | | | | | | for Health and | | | | | | Healing, Building [address] | | | | | | [place], [place] | | | | | | [address] | | | | | | [phone] | | | +--------+ + + + [...]
--- OUTSIDE RECORDS SUMMARY | ~2020-07-04 | XMS | Encounter Summary ---
Demographics + + + | Address | [address] | | | [place] [address] | + + + | Home Phone [...] Providers + +------+ + | Care Quality Officer Name | Role | Phone | [...] | | | | regional | ,PhD [address] | | | | | | pain | [address] | | | | | | syndrome | [address] | | | | | | type 1 of | Rd | | | | | | left lower | [place], [place] | | | | | | extremity | [address] | | | | | | Procedures | Phone: | | | | | | PHYSICAL | [phone] | | | | | | THERAPY | Fax: | | | | | | REFERRAL | [phone] | | +--------+--------+ + + + + Encounter Details +--------+ + + + + | Date | Type | Department | Care Team | Description | +--------+ + + + + | 01/22/ | Telephone | [facility] Comprehensive | Alex Sanchez, | | | 2019 | | Pain Center at | ,PhD [address] [facility] | | | | | [facility] | [facility] | | | | | [address] | [place], [place] | | | | | [facility] | [address] | | | | | and Martina, | [phone] | | | | | | | | | | | Floor [place], [place] | | | | | | [address] | | | | | | [phone] | | | +--------+ + + + [...]
--- OUTSIDE RECORDS SUMMARY | ~2020-07-04 | XMS | Encounter Summary ---
Demographics + + + | Address | [address] | | | [place] [address] | + + + | Home Phone [...] Providers + +------+ + | Care Industrial Machine System Technician Name | Role | Phone [...] 2016 | | Pain Center at | CARDIOTHORACIC SURGEON [address] | | | | | [facility][Note 3] | [place], [place] | | | | | [address] | [address] | | | | | [facility] | [phone] | | | | | and Healing, | | | | | | [facility] | | | | | | [place], [place] | | | | | | [address] | | | | | | [phone] | | | +--------+ + + + [...]
--- OUTSIDE RECORDS SUMMARY | ~2020-07-04 | XMS | Encounter Summary ---
Demographics + + + | Address | [address] | | | [place] [address] | + + + | Home Phone [...] Providers + +------+ + | Care Direct Customer Service Representative Name | Role | Phone [...] + + | 12/26/ | Refill | [facility] Comprehensive | Alex Sanchez, | Refill Request | | 2019 | | Pain Center at | ,PhD [address] | | | | | [facility] | [address] | | | | | [address] | [place], [place] | | | | | [facility] | [address] | | | | | and Martina, | [phone] | | | | | [facility] | | | | | | Floor [place], [place] | | | | | | [address] | | | | | | [phone] | | | +--------+--------+ + + + [...]
--- OUTSIDE RECORDS SUMMARY | ~2020-07-04 | XMS | Encounter Summary ---
Demographics + + + | Address | [address] | | | [place] [address] | + + + | Home Phone [...] Team Providers + +------+ + | Care Straightedge Man Name | Role | Phone | + +------+ + | Justo Vazquez MD | PCP | | + +------+ + Encounter Details +--------+ + + + + | Date | Type | Department | Care Team | Description | +--------+ + + + + | 05/14/ | Telephone | [facility] | Alex Sanchez, | | | 2019 | | Pain Center at | ,PhD [address] | | | | | [facility] | [address] | | | | | [address] | [place], [place] | | | | | [place] for [facility] | [address] | | | | | and Healing, | [phone] | | | | | | | | | | | Floor [place], [place] | | | | | | [address] | | | | | | [phone] | | | +--------+ + + + [...]
--- OUTSIDE RECORDS SUMMARY | ~2020-07-04 | XMS | Encounter Summary ---
Demographics + + + | Address | [address] | | | [place] [address] | + + + | Home Phone [...] Providers + +------+ + | Care Printing Plate Clerk Name | Role | Phone | + +------+ + | Justo Vazquez MD | PCP | | + +------+ + Encounter Details +--------+ + + + + | Date | Type | Department | Care Team | Description | +--------+ + + + + | 08/07/ | Telephone | [facility] | Alex Sanchez, | | | 2019 | | Pain Center at | ,PhD [address] | | | | | [facility] | [address] | | | | | [address] | [place], [place] | | | | | [place] for [facility] | [address] | | | | | and Healing, | [phone] | | | | | | | | | | | Floor [place], [place] | | | | | | [address] | | | | | | [phone] | | | +--------+ + + + [...]
--- OUTSIDE RECORDS SUMMARY | ~2020-07-04 | XMS | Encounter Summary ---
Demographics + + + | Address | [address] | | | [place] [address] | + + + | Home Phone [...] Team Providers + +------+ + | Care Cattle Producers Name | Role | Phone | + [...] | | 2017 | | Center at [facility] [address] | | Review | | | | [facility] | | | | | | for Health and | | | | | | [facility] 2 | | | | | | [place], [place] | | | | | | [address] | | | | | | [phone] | | | +--------+ + + + [...]
--- OUTSIDE RECORDS SUMMARY | ~2020-07-04 | XMS | Encounter Summary ---
Demographics + + + | Address | [address] | | | [place] [address] | + + + | Home Phone [...] Team Providers + +------+ + | Care Vending Machine Servicer Name | Role | Phone [...] | | Center at [facility] [address] | | severe stomach Pain) | | | | [address] [facility] | | | | | | for Health and | | | | | | Healing, Building 2 | | | | | | [place], [place] | | | | | | [address] | | | | | | [phone] | | | +--------+ + + + [...]
--- OUTSIDE RECORDS SUMMARY | ~2020-07-04 | XMS | Encounter Summary ---
Demographics + + + | Address | [address] | | | [place] [address] | + + + | Home Phone [...] Providers + +------+ + | Care Inside Steward/Stewardess Name | Role | Phone | + +------+ + | Justo Vazquez MD | PCP | | + +------+ + Encounter Details +--------+ + + + + | Date | Type | Department | Care Team | Description | +--------+ + + + + | 09/27/ | Telephone | [facility] | Ilene Bright, | | | 2017 | | Pain Center at | PLACEMENT OFFICER [address] | | | | | [facility] | [place], [place] | | | | | [address] | [address] | | | | | [place] for [facility] | [phone] | | | | | and Healing, | | | | | | | | | | | | Floor [place], [place] | | | | | | [address] | | | | | | [phone] | | | +--------+ + + + [...]
--- OUTSIDE RECORDS SUMMARY | ~2020-07-04 | XMS | Encounter Summary ---
Demographics + + + | Address | [address] | | | [place] [address] | + + + | Home Phone [...] Team Providers + +------+ + | Care Doctor'S Assistant Name | Role | Phone | + +------+ + | Allegra Chaudhary | PCP | | + +------+ + Encounter Details +--------+ + + + + | Date | Type | Department | Care Team | Description | +--------+ + + + + | 10/21/ | Telephone | [facility] | Antony Beltre, | | | 2014 | | [place] [address] [address] | [address] | | | | | [address] [place] | [place] [address] | | | | | for Health and | [phone] | | | | | [facility] 2 | | | | | | [place], [place] | | | | | | [address] | | | | | | [phone] | | | +--------+ + + + [...]
--- OUTSIDE RECORDS SUMMARY | ~2020-07-04 | XMS | Encounter Summary ---
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 | for Health | | | | | location | Rd | and Healing, | | | | | Procedures | [place], [place] | Building | | | | | CONSULT TO | [address] | 1,15th Floor | | | | | PAIN | | [place], [place] | | | | | MANAGEMENT | | [address] | | | | | | | Phone: | | | | | | | [phone] | | | | | | | Fax: | | | | | | | [phone] | +--------+--------+ + + + + Encounter Details +--------+---------+ + + + | Date | Type | Department | Care Team | Description | +--------+---------+ + + + | 07/11/ | Office | [facility] Comprehensive | Ilene Bright, | Pain of upper | | 2017 | Visit | Pain Center at | SOLIDWORKS MECHANICAL DESIGNER [address] | abdomen (Primary | | | | [place] | [place], [place] | Dx); Intractable | | | | [address] | [address] | cyclical vomiting | | | | [facility] | [phone] | with nausea; | | | | and Healing, | | Irritable bowel | | | | Building | | syndrome with | | | | Floor [place], [place] | | constipation; | | | | [address] | | Complex regional | | | | [phone] | | pain syndrome type 1 | [...] and determine next steps. Ilene Childs DNP, SOLIDWORKS MECHANICAL DESIGNER-C Adult Pain Service /[facility] [address] [place] [address] documented in this encounter Progress Notes Ilene Bright FNP - 07/11/2017 1:35 PM PDTFormatting of this note might be different fr om the original. [facility] Pain Center Return Visit Date: 07/11/2017 Chief Complaint Patient presents with Abdominal pain Back pain History of Present Illness: Tracie Farah is a 27 year old female, whose last appoi ntment at the [facility] was April 25, 2017, [...] in the process of arranging [facility] Tracie. She has also changed [...] her abdominal pain an d associated symptoms. [facility] QUESTIONNAIRE BRIEF PAIN 07/11/2017 Please rate [...] has interfered with your sleep : 5 NEW ACCOUNTS REPRESENTATIVE Questionnaire Follow-up Patient 07/11/2017 Please describe the [...] History Social History Narrative Single. Goes to [employer] with a light load. Has been working at [employer], can' t work on [employer]. Has roommates. Allergies Allergen Reactions Morphine Anaphylaxis [...] by physician. Concentration is 150mg/mL. Compounded by [facility] ) LAMOTRIGINE 200 MG TABLET Take [...] and summary of old medical records (source: [employer]), as summarized in the body of the [...] I, Shantel Salinas, am functioning as a health care / medical job titles for TERESA Clark DNP-C I have reviewed and verified the above scribed note of my visit with this patient as record ed by Shantel Salinas. Ilene Childs DNP, TERESA-C Adult Pain [facility] /[facility] [address] [place] [address] Addendum: I paged Dr. Les Gaspar. He was out of the clinic, I spoke with the covering provider and sha dandre Tracie's request for food allergy testing. Since Tracie thinks her pain and vomiting may b e triggered by gluten, covering provided ordered appropriate workup, which I communicated to Tracie and the the lab in [place], [place]. She will followup with me and GI once these results are available. Ilene Childs DNP, SOLIDWORKS MECHANICAL DESIGNER-C Adult Pain Service /[facility] [address] [place] [address] documented in this e ncounter Plan of [...]
--- OUTSIDE RECORDS SUMMARY | ~2020-07-04 | XMS | Encounter Summary ---
Demographics + + + | Address | [address] | | | [place] [address] | + + + | Home Phone [...] Team Providers + +------+ + | Care Corner Trimmer Operator Name | Role | Phone | + +------+ + | Justo Vazquez MD | PCP | | + +------+ + Encounter Details +--------+ + + + + | Date | Type | Department | Care Team | Description | +--------+ + + + + | 03/12/ | Telephone | [facility] | Alex Sanchez, | | | 2019 | | Pain Center at | ,PhD [address] | | | | | [facility] | [address] | | | | | [address] | [place], [place] | | | | | [place] for [facility] | [address] | | | | | and Healing, | [phone] | | | | | | | | | | | Floor [place], [place] | | | | | | [address] | | | | | | [phone] | | | +--------+ + + + [...]
--- OUTSIDE RECORDS SUMMARY | ~2020-07-04 | XMS | Encounter Summary ---
Demographics + + + | Address | [address] | | | [place] [address] | + + + | Home Phone [...] Team Providers + +------+ + | Care Paste Mixer Name | Role | Phone | [...] | | Pain | Complex | Ilene, BABY FORMULA MIXER | Hanna M, | | | | Management | regional | [address] | PSY D [address] | | | | | pain | Ave | [address] | | | | | syndrome | [place], [place] | [place], [place] | | | | | type 1 of | [address] | [address] Phone: | | | | | left lower | Phone: | [phone] | | | | | extremity | [phone] | Fax: | | | | | Intractable | Fax: | [phone] | | | | | cyclical | [phone] | | | | | | vomiting [...] | | | | | | [place] | | | | | | | PSYCHIATRIC | | | | | | | DIAGNOSTIC | | | | | | | EVAL, NO MED | | | | | | | [facility] [place] | | | | | | | PSYCH TSTNG | | | | | | | PSYCH/PHYS | | | | | | | [place] | | | | | | [...] Pain Medicine | Diagnoses | 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, | 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 | | | | / Pain | Abdominal | MD Kenny | [address] | | | | Management | pain, | [address] [facility] | [facility] | | | | | unspecified | [facility] | for Health | | | | | location | Rd | and Healing, | | | | | Procedures | [place], [place] | [facility] | | | | | CONSULT TO | [address] | 1,15th Floor | | | | | PAIN | | [facility] [place] | | | | | MANAGEMENT | | [address] | | | | | | | Phone: | | | | | | | [phone] | | | | | | | Fax: | | | | | | | [phone] | +--------+--------+ + + + + Encounter Details +--------+---------+ + + + | Date | Type | Department | Care Team | Description | +--------+---------+ + + + | 04/25/ | Office | [facility] | Ilene Bright, | Abdominal pain, | | 2017 | Visit | Pain Center at | BABY FORMULA MIXER [address] | unspecified location | | | | [facility] | [place], [place] | (Primary Dx); | | | | [address] | [address] | Complex regional | | | | [place] for [facility] | [phone] | pain syndrome type 1 | | | | and Healing, | | of left lower | | | | Building 1,15 | | extremity; | | | | Floor [place], [place] | | Intractable cyclical | | | | [address] | | vomiting with | | | | [phone] | | nausea; | | | | [...] encounter Patient Instructions Patient Instructions Ilene Bright, BABY FORMULA MIXER - 04/25/2017 1:35 PM PDTKelly, Nice to [...] Freddie Guadalupe MD [email or web address] Ilene Childs DNP, BABY FORMULA MIXER-C Adult Pain Service /[facility] [address] [place] [address] documented in this encounter Progress Notes Ilene Bright FNP - 04/25/2017 1:35 PM PDTFormatting of this note might be different fr om the original. Date: 04/25/2017 was referred for pain management consultation by Kenny Gaspar MD [address] [place] [address] Reason for consult: abdominal pain Chief Complaint Patient presents with Abdominal pain Back pain History of Present Illness: Tracie Farah is a 26 year old female with a history of depression, complex regional pain syndrome (left lower extremity) for this she follows with a neurologist at [facility] in [facility]. She has been stable on her [...] (works better) Just started her on Celebrex (custodial option) Intranasal ketamine Lamotrigine Memantine Ibuprofen Cymbalta 20 mg BID Cyclobenzaprine Her nonmedication treatment has not included acupuncture, etc due to limited income. She feels that the most effective treatments include: medication (toradol). lives in [place], [place] alone and with her children. She receives disability. does not have specific goals for today's appointment. 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 No Do you drink alcohol to [...] Hemroidectomy Trial spinal cord stimulator leads 08/02/2012 [facility], Surgeon: Janak Riojas MD Cholecystectomy Appendectomy Other [...] History Social History Narrative Single. Goes to [employer] with a light load. Has been working at [employer], can' t work on [employer]. Has roommates. Allergies Allergen Reactions Morphine Anaphylaxis [...] by physician. Concentration is 150mg/mL. Compounded by [facility] ( [phone]) LAMOTRIGINE 200 MG TABLET Take 1 tablet [...] Take as directed by [facility]- 2 gallon bowel prep POLYETHYLENE GLYCOL 3350 17 GRAM/DOSE ORAL POWDER Take 17 g by mouth once daily. PROMETHAZINE 12.5 MG TABLET Take 12.5 mg by mouth four times daily as needed for nausea/vom iting. SUCRALFATE 1 GRAM TABLET Take 1 g by mouth four times daily. Radiology/Diagnostic Tests: MR ENTEROGRAPHY ABDOMEN AND PELVIS WWO CONTRAST Order: [id number] Performed: 01/31/2017 4:34 PM Status: Final result [...] 3:50 PM X-RAY ABDOMEN 1 VIEW Order: [id number] Performed: 03/19/2017 6:52 AM Status: Final result [...] and summary of old medical records (source: [employer]), as summarized in the body of the [...] possible opioid-sparing effects (Stevie Paulino et al.C Wattpad, (8):1655-70, 2007) and evidence that it can [...] TERESA-C Adult Pain Service /[facility] [address] [place] [address] Display Progress Note in MyChart: No documented [...]
--- OUTSIDE RECORDS SUMMARY | ~2020-07-04 | XMS | Encounter Summary ---
Demographics + + + | Address | [address] | | | [place] [address] | + + + | Home Phone [...] Providers + +------+ + | Care Job Site Supervisor Name | Role | Phone | + +------+ + | Justo Vazquez MD | PCP | | + +------+ + Encounter Details +--------+ + + + + | Date | Type | Department | Care Team | Description | +--------+ + + + + | 06/07/ | Telephone | [facility] | Alex Sanchez, | | | 2019 | | Pain Center at | ,PhD [address] | | | | | [facility] | [address] | | | | | [address] | [place], [place] | | | | | [place] for [facility] | [address] | | | | | and Healing, | [phone] | | | | | | | | | | | Floor [place], [place] | | | | | | [address] | | | | | | [phone] | | | +--------+ + + + [...]
--- OUTSIDE RECORDS SUMMARY | ~2020-07-04 | XMS | Encounter Summary ---
Demographics + + + | Address | [address] | | | [place] [address] | + + + | Home Phone [...] Team Providers + +------+ + | Care Interlocking And Signal Mechanic Name | Role | Phone | [...] | | | | | syndrome | [facility] | [facility] | | | | | type 1 of | Rd | Rd [place], | | | | | left lower | [facility] [place] | [place] | | | | | extremity | [address] | [address] | | | | | Procedures | Phone: | Phone: | | | | | REQUEST TO | [phone] | [phone] | | | | | SURGERY | Fax: | Fax: | | | | | WARM IN WORKER | [phone] | [phone] | +--------+---------+ + + + + Physical [...] | | | | regional | ,PhD [address] | [facility] | | | | | pain | [facility] | [address] | | | | | syndrome | [facility] | [place] | | | | | type 1 of | Rd | [place] | | | | | left lower | [place], [place] | [address] | | | | | extremity | [address] | Phone: | | | | | Procedures | Phone: | [phone] | | | | | PHYSICAL | [phone] | Fax: | | | | | THERAPY | Fax: | [phone] | | | | | REFERRAL | [phone] | | +--------+--------+ + + + + [...] | | | | | Procedures | [place], [place] | Rd [place], | | | | | CONSULT TO | [address] | [place] | | | | | PAIN | | [address] | | | | | MANAGEMENT | | Phone: | | | | | | | [phone] | | | | | | | Fax: | | | | | | | [phone] | +--------+--------+ + + + + Encounter Details +--------+---------+ + + + | Date | Type | Department | Care Team | Description | +--------+---------+ + + + | 06/12/ | Office | [facility] Comprehensive | Alex Sanchez, | Complex regional | | 2018 | Visit | Pain Center at | ,PhD [address] [facility] | pain syndrome type 1 | | | | [facility] | [facility] [address] | of left lower | | | | [address] | [place], [place] | extremity (Primary | | | | Center for Health | [address] | Dx) | | | | and Healing, | [phone] | | | | | | | | | | | Floor [place], [place] | | | | | | [address] | | | | | | [phone] | | | +--------+---------+ + + + [...] in the future, please contact me via GigOwl to request an order to schedule. The procedure you discussed with your doctor is called: SCS DRG TRIAL LUMBAR [facility]. Please make sure this is scheduled with the [facility]. PRE-PROCEDURE INSTRUCTIONS 1. Please bring a bus van driver with you as we may give you medications that impair your ability to drive. This is necessary even if you do not receive sedation. You may take a taxi or ri [employer] if you are accompanied by a responsible [...] phone number for questions or concerns is [phone]. documented in this encounter Progress Notes Holly [...] MD,P hD - 06/12/2018 10:00 AM PDT [facility] Pain Center Return Visit Date: 06/12/2018 Chief Complaint Patient presents with Pain in left leg History of Present Illness: Tracie Farah is a 28 year old female, whose last appoi ntment at the [facility] was May 08, 2018, for [...] that this mildly agitated her neck pain. SALES PROFESSIONAL Brief Pain Inventory: (ten= worst possible pain [...] Trial spinal cord stimulator leads 08/02/2012 [facility], Surgeon: Janak Riojas MD Cholecystectomy Appendectomy [...] History Social History Narrative Single. Goes to [employer] with a light load. Has been working at [employer], can' t work on [employer]. Has roommates. Allergies Allergen Reactions Morphine Anaphylaxis [...] by physician. Concentration is 150mg/mL. Compounded by [facility] ( [phone]) KETOROLAC IM Inject into the muscle (IM). [...] directed by [facility] Digestive Health- 2 gallon [...] and summary of old medical records (source: [employer]), as summarized in the body of the [...] to send me a mess age via GigOwl to request referrals to acupuncture and massage [...] by Sonia Key. Alex Sanchez MD PhD Ventilation Mechanic Anesthesiology and Pain Management Counts Include [address] [facility] documented in t his encounter Plan [...]
--- OUTSIDE RECORDS SUMMARY | ~2020-07-04 | XMS | Encounter Summary ---
Demographics + + + | Address | [address] | | | [place] [address] | + + + | Home Phone [...] Team Providers + +------+ + | Care Record Center Coordinator Name | Role | Phone | + +------+ + | Justo Vazquez MD | PCP | | + +------+ + Encounter Details +--------+ + + + + | Date | Type | Department | Care Team | Description | +--------+ + + + + | 01/09/ | Documentati | Orthopaedics | Ranjeet Amanda, | | | 2018 | on | [facility] | [address] | | | | | for Health and | [place], [place] | | | | | Healing [address] | [address] | | | | | Ave [facility] for | [phone] | | | | | Health and Healing, | | | | | | | | | | | | Floor [facility] [place] | | | | | | [address] | | | | | | [phone] | | | +--------+ + + + [...]
--- OUTSIDE RECORDS SUMMARY | ~2020-07-04 | XMS | Encounter Summary ---
Demographics + + + | Address | [address] | | | [place] [address] | + + + | Home Phone [...] Medication Question | | 2016 | | [place] [address] | | | | | | [address] [facility] | | | | | | for Health and | | | | | | Healing, [facility] [address] | | | | | | [place], [place] | | | | | | [address] | | | | | | [phone] | | | +--------+ + + + [...]
--- OUTSIDE RECORDS SUMMARY | ~2020-07-04 | XMS | Encounter Summary ---
Demographics + + + | Address | [address] | | | [place] [address] | + + + | Home Phone [...] Team Providers + +------+ + | Care Intrusion Analyst Name | Role | Phone | [...] | | | | | syndrome | [facility] | [facility] | | | | | type 1 of | Rd | Rd [place], | | | | | left lower | [facility] [place] | [place] | | | | | extremity | [address] | [address] | | | | | Procedures | Phone: | Phone: | | | | | REQUEST TO | [phone] | [phone] | | | | | SURGERY | Fax: | Fax: | | | | | SOFTWARE TESTING SPECIALIST | [phone] | [phone] | +--------+---------+ + + + + Reason [...] | | | | | Procedures | [place], [place] | [place], | | | | | CONSULT TO | [address] | [place] | | | | | PAIN | | [address] | | | | | MANAGEMENT | | Phone: | | | | | | | [phone] | | | | | | | Fax: | | | | | | | [phone] | +--------+--------+ + + + + Encounter Details +--------+---------+ + + + | Date | Type | Department | Care Team | Description | +--------+---------+ + + + | 10/09/ | Office | [facility] | Alex Sanchez, | Complex regional | | 2018 | Visit | Pain Center at | ,PhD [address] [facility] [address] | pain syndrome type 1 | | | | [facility] | [facility] [address] | of left lower | | | | [address] | [place], [place] | extremity (Primary | | | | [place] for [facility] | [address] | Dx) | | | | and Healing, | [phone] | | | | | | | | | | | Floor [place], [place] | | | | | | [address] | | | | | | [phone] | | | +--------+---------+ + + + [...] with an external order to see a record retrieval specialist today. Please p resent this referral [...] insurance. PRE-PROCEDURE INSTRUCTIONS 1. Please bring a lifter driver with you as we may give [...] or blood thinning medications (other than aspirin), [facility] doctor who is doing your procedure will communicate with the provider who is prescribing y our anticoagulant therapy. If you do not have clear instructions on what to do with your an ticoagulant by 2 weeks before your procedure, please contact [facility] to cl arify your instructions. The phone number for questions or concerns is [phone]. documented in this encounter Progress Notes Alex [...] Alex Sanchez MD,PhD [facility] signed by Alex Sanchez MD,PhD [...] the [facility] Pain [place] was September 28, 2018, for a clinic visit with Yun Frey NP. At that time our plans were: Recommendations/Plan: 1. Recommend to keep her appointment with Dr. Sanchez on 10/02/2018. 2. To contact the [place]'s rep if she has any further question [...] She went into the emergency room in [place], [place] where they rem cady the leads. She [...] which she suspects also used dissolvable stitches. CORN SHREDDER Brief Pain Inventory: (ten= worst possible pain [...] cord stimulator leads 08/02/2012 [facility], Surgeon: Janak Riojas MD Cholecystectomy Appendectomy Other [...] a light load. Has been working at [employer], can' t work on [employer]. Has roommates. Allergies Allergen Reactions Morphine Anaphylaxis [...] the vein (IV) every eight hour s. 1604-0645-56 COMPOUNDED MED RX CONTROLLED (SEE ADMIN INSTRUCT [...] by physician. Concentration is 150mg/mL. Compounded by [employer] ) KETOROLAC IM Inject into the muscle [...] (IV) every twel ve hours as needed. 8926-0410-69 ONDANSETRON 4 MG DISINTEGRATING TABLET Dissolve 1 [...] and summary of old medical records (source: [employer]), as summarized in the body of the [...] Key. Arben Valerio MD [facility] 15TH FLOOR [address] [facility] Mail Code: Ch15p [place] [address] [phone] signed by Alex Sanchez MD,PhD at 10/10/2018 9:27 AM [facility] umented in this encounter Plan of Treatment Not on filedocumented as of this encounter Visit Diagnoses + + | Diagnosis | + + | Complex regional pain syndrome type 1 of left lower extremity - Primary | + + documented in this encounter
--- OUTSIDE RECORDS SUMMARY | ~2020-07-04 | XMS | Encounter Summary ---
[...] Providers + +------+ + | Care Electrical Installer Name | Role | Phone | [...] 2016 | | Pain Center at | PHARMACOLOGY TEACHER [address] | | | | | [facility] | [place], [place] | | | | | [address] | [address] | | | | | [facility] | [phone] | | | | | and Healing, | | | | | | [facility] | | | | | | [place], [place] | | | | | | [address] | | | | | | [phone] | | | +--------+ + + + [...]
--- OUTSIDE RECORDS SUMMARY | ~2020-07-04 | XMS | Encounter Summary ---
Demographics + + + | Address | [address] | | | [place] [address] | + + + | Home Phone [...] | | [facility] for | [place], [place] | | | | | Health and Healing, | [address] | | | | | | [phone] | | | | | [place], [place] | | | | | | [address] | | | | | | [phone] | | | +--------+ + + + [...]
--- OUTSIDE RECORDS SUMMARY | ~2020-07-04 | XMS | Encounter Summary ---
Demographics + + + | Address | [address] | | | [place] [address] | + + + | Home Phone [...] Providers + +------+ + | Care Die Cast Technician Name | Role | Phone | + +------+ + | Justo Vazquez MD | PCP | | + +------+ + Encounter Details +--------+ + + + + | Date | Type | Department | Care Team | Description | +--------+ + + + + | 01/31/ | Documentati | Vascular Access at | [place], | | | 2017 | on | [facility] [address] | Maru RN [address] | | | | | [address] | [address] | | | | | [facility] | [place], [place] | | | | | [place], [place] | [address] | | | | | [address] | | | | | | [phone] | | | +--------+ + + + [...]
--- OUTSIDE RECORDS SUMMARY | ~2020-07-04 | XMS | Encounter Summary ---
Demographics + + + | Address | [address] | | | [place] [address] | + + + | Home Phone [...] Providers + +------+ + | Care Film And Video Graphics Designer Name | Role | Phone | [...] | | | [facility] | [address] | | | | | [address] | [place], [place] | | | | | [place] for [facility] | [address] | | | | | and Healing, | [phone] | | | | | | | | | | | Floor [place], [place] | | | | | | [address] | | | | | | [phone] | | | +--------+ + + + [...]
--- OUTSIDE RECORDS SUMMARY | ~2020-07-04 | XMS | Encounter Summary ---
Demographics + + + | Address | [address] | | | [place] [address] | + + + | Home Phone [...] Providers + +------+ + | Care Dietary Aide Name | Role | Phone | [...] + + | 03// | Telephone | [facility] Comprehensive | Alex Sanchez, | Medication (clarify | | 2018 | | Pain Center at | ,PhD [address] | sig on Ketamine) | | | | [facility] | [facility] | | | | | [address] | [place], [place] | | | | | [facility] | [address] | | | | | and Healing, | [phone] | | | | | Building | | | | | | Floor [place], [place] | | | | | | [address] | | | | | | [phone] | | | +--------+ + + + [...]
--- OUTSIDE RECORDS SUMMARY | ~2020-07-04 | XMS | Encounter Summary ---
Demographics + + + | Address | [address] | | | [place] [address] | + + + | Home Phone [...] Team Providers + +------+ + | Care Harvesting Supervisor Name | Role | Phone | [...] | | | regional | [place] | [address] | | | | | pain | FAMILY | [address] | | | | | syndrome), | MEDICINE P | [id number] | | | | | lower limb | [address] | [place], [place] | | | | | Pain in | [place], | [address] | | | | | joint, lower | [place] [address] | Phone: | | | | | leg | Phone: | [phone] | | | | | Procedures | [phone] | Fax: | | | | | REQUEST TO | Fax: | [phone] | | | | | SURGERY | [phone] | | | | | | CHEMISTRY ACCOUNT MANAGER | | | +--------+--------+ + + + + Encounter Details +--------+ + + + + | Date | Type | Department | Care Team | Description | +--------+ + + + + | 08/02/ | Procedure | Pain Center at [facility] | Dale Cantu, | Procedure; | | 2011 | | [address] | [address] | Injection; Procedure | | | | [facility] | [facility] 839553 | | | | | and Healing, | [place], [place] | | | | | [facility] | [address] | | | | | Floor [place], [place] | [phone] | | | | | [address] | | | | | | [phone] | | | +--------+ + + + [...] e might be different from the original. [facility] Patient Instructions - Post Spinal Cord Stimulator Trial Date: 08/02/2012 Name: Tracie Farah Date of : 1990 Procedure Performed: SCS TRIAL LUMBAR [facility] Procedure Provider: Dale Cantu [facility] Procedure Rm If you have any problems you believe are associated with your procedure tonight, Please call the Hospital Acute Care Physical Therapist, and ask for the Pain Management Consu ltant. If you have problems or questions between 9:00 am and 4:00 pm, Please call the [facility] Nurse Triage Line, . If you go to an Emergency Room, please bring this form with you. DISCHARGE INSTRUCTIONS Call immediately and/or go to the Emergency department if any concerns about wound healing, fever, or chills. Also call for concerns about SCS function. During [facility] open hours, call the [facility] ([phone]), after hours call the casting machine service operator at [facility] ([phone]) and ask for t he Adult Pain Service livestock auctioneer. Identify yourself as a [facility] [...] the wounds, dressing, or SCS function. During RADIOISOTOPE TECHNICIAN o pen hours, call the RADIOISOTOPE TECHNICIAN ([phone]), after hours call the casting machine service operator at [facility] ([phone] ) and ask for the Adult Pain Service livestock auctioneer. Identify yourself as my patient with a concer n about postoperative recovery. If there are concerns about the SCS programming, contact t he medical customer service representative from the SCS senior quantity surveyor. If the stimulation is not covering your area o f pain, your SCS should be reprogrammed. Do not take any blood thinning medications during the trial. Instructions printed and reviewed with the patient. Copy of instructions given to Ms. Nemo renee. DALE CANTU MD [facility] documented in this [...] and postoperative care instructions. DALE CANTU MD Manager Demand, [facility] Regulatory Attorney, Pain Medicine Professor, Anesthesiology & Perioperative Medicine Diana Arroyo RN - 08/02/2012 7:34 AM PDT PRE-SEDATION: Date: August 02, 2012 Tracie Farah [id number] 1990 ALLERGIES: Morphine Previous reaction to Sedation/Analgesia: MEDICATIONS: Current Outpatient Prescriptions Medication HYDROcodone-acetaminophen (NORCO) 10-325 mg Oral Tablet KETOROLAC TROMETHAMINE (TORADOL IM) levonorgestrel (MIRENA) 20 mcg/24 hr Intrauterine IUD LORazepam 1 mg Oral Tablet ondansetron (ZOFRAN) 8 mg Oral Tablet promethazine 25 mg Oral Tablet Meets NPO Guidelines. IV ACCESS: IV in Place IV Site [facility] 22 g @ 0655 BASELINE VS: See Sedation Flow Sheet. Tracie Donaldson [facility] [id number] 1990, presents to clinic for: Procedure: Spinal [...] 0732 - 0733: [place]azolam 2 [place] [address]: Fentanyl 25 mcg IV 0740 - 0741: Midazolam 2 mg IV 0742: Procedure started 0743 - 0744: Fentanyl 50 mcg IV 0753-54: Fentanyl 25 mcg IV Lead # 1 placed Lead # 2 placed 0801: Stimulation started. 0829: Pt reports stimulation to usual areas of pain. Leads secured. 0845: [facility] in [facility] condition. IV dc'd. Evelia [...] OPERATIVE NOTE Date: August 02, 2012 Location: [facility] Procedure Room Trcaie Farah [id number] :1990, presents to clinic for: PROCEDURE: Spinal Cord Stimuation Trial LEVEL/LATERALITY: midline lumbar PRE-OPERATIVE DIAGNOSIS: 355.71B CRPS (complex regional pain syndrome), lower limb 719.46 Pain in joint, lower leg 781.2Q Gait disturbance POST-OPERATIVE DIAGNOSIS: 355.71B CRPS (complex regional pain syndrome), lower limb 719.46 Pain in joint, lower leg 781.2Q Gait disturbance ATTENDING PHYSICIAN: Dale Cantu MD LOAN EXPEDITOR: Fellow Bear Yost DO ANESTHESIA: sedation delivered [...] Ms. Farah was escorted to the [facility] Procedure Ro om, where she was positioned Prone on the examination table. TEAM PAUSE: The physician-led pause was conducted, and is documented in the Nursing note. Monitors were placed, including ECG, NIBP and SpO2. The skin was prepared with Chloroprep and sterile drapes were applied. Lumexis system was used for this procedure. The company medical customer service representative was theresa knutson for the procedure. [...] pain. Ms. Farah was transported to the [facility] Pain Center post-procedure recovery area where she made an uneventful recovery. Images were saved, and sent to [employer]. Ms. Farah will have her next appointment [...] about wound healing or SCS function. During [facility] open hours, call the [facility] ([phone]), after h ours call the casting machine service operator at [facility] ([phone]) and ask for the Adult Pain Service livestock auctioneer. Identify yourself as my patient with a [...]
--- OUTSIDE RECORDS SUMMARY | ~2020-07-04 | XMS | Encounter Summary ---
Demographics + + + | Address | [address] | | | [place] [address] | + + + | Home Phone [...] + +------+ + | Care Assistant Manager Retail Name | Role | Phone | + [...] | Diagnoses | [place] | Edu Pt [employer] | | | | Therapy | CRPS | Janak Martinez MD | [address] | | | | | (complex | [address] | | | | | regional | [address] | Mailcode: | | | | | pain | [facility] | [facility] | | | | | syndrome), | [id number] | for Health | | | | | lower limb | [place], [place] | and Healing, | | | | | Gait | [address] | Building [address] | | | | | disturbance | Phone: | [place], [place] | | | | | Muscle pain | [phone] | [address] | | | | | Procedures | Fax: | Phone: | | | | | PHYSICAL | [phone] | [phone] | | | | | THERAPY | [...] | | | | [place] | [place] [address] | syndrome), lower | | | | [address] | [phone] | limb (Primary Dx) | | | | [facility] | | | | | | and Healing, | | | | | | Building 1, | | | | | | Floor [place], [place] | | | | | | [address] | | | | | | [phone] | | | +--------+---------+ + + + [...] might be different f rom the original. [id number] BRODY FARAH Date of : 1990 Start of care: 02/14/2012 Date of onset: 02/14/2012 Referring/Attending Practitioner: Janak Riojas MD . Primary/Referral Diagnosis/ICD-9: 355.71B CRPS (complex regional pain syndrome), lower limb Insurance: Payor: [facility] Plan: BCBS OUT OF STATE Product Type: PP O Service period from: 02/14/2012 to: 08/12/2012 Number visits used/authorized: 01/23 [facility] PHYSICAL THERAPY PROGRESS NOTE SUBJECTIVE: Age: 21 y.o. Sex: female Chief complaint: No chief complaint on file. Current: pt has been doing her neck exercises. She is not shaking as much. Her foot hurts t bruno. Now she is working at [employer] 2-3 hours per week, and spends a [...] in their status. Guillermo Sanon MSPT [facility] Outpatient Rehabilitation Services Mailcode: Ch3r [address] [facility] Er, [address] [place] [address] documented in this encounter Plan of [...]
--- OUTSIDE RECORDS SUMMARY | ~2020-07-04 | XMS | Encounter Summary ---
Demographics + + + | Address | [address] | | | [place] [address] | + + + | Home Phone [...] Team Providers + +------+ + | Care Wound/Ostomy Clinical Nurse Specialist Name | Role | [...] | | syndrome | [address] | [facility] | | | | | type 1 of | Rd | Rd [place], | | | | | left lower | [place], [place] | [place] | | | | | extremity | [address] | [address] | | | | | Procedures | Phone: | Phone: | | | | | REQUEST TO | [phone] | [phone] | | | | | SURGERY | Fax: | Fax: | | | | | WAREHOUSE CLERK | [phone] | [phone] | +--------+---------+ + + + + Encounter Details +--------+---------+ + + + | Date | Type | Department | Care Team | Description | +--------+---------+ + + + | 09/28/ | Office | [facility] Comprehensive | Yun Frey, RN PERIOPERATIVE | Complex regional | | 2018 | Visit | Pain Center at | [address] | pain syndrome type 1 | | | | [place] | [place], [place] | of left lower | | | | [address] | [address] | extremity (Primary | | | | [facility] | [phone] | Dx); Arthralgia of | | | | and Healing, | | left lower leg | | | | | | | | | | [place], [place] | | | | | | [address] | | | | | | [phone] | | | +--------+---------+ + + + [...] Dr. Sanchez on 10/02/2018. -Please contact the [employer] rep if you have any further question [...] PM PST September 28, 2018 Tracie Farah [id number] [facility] Comprehensive Pain Center Return [...] drawing which I reviewed. [facility] Questionnaire Follow-up Patient 10/10/2017 Please [...] PROCEDURE: DRG Spinal Cord Stimuation Trial with [employer]. [employer] system LEVEL/LATERALITY: left L4, L5. Till date, [...] turned up to 7%. After seeing th truck sales representative today and killian ing adjustments, [...] the vein (IV) every eight hour s. 5809-9154-75 COMPOUNDED MED RX CONTROLLED (SEE ADMIN INSTRUCT [...] by physician. Concentration is 150mg/mL. Compounded by [facility] ) KETOROLAC IM Inject into the [...] (IV) every twel ve hours as needed. 0215-4236-43 ONDANSETRON 4 MG DISINTEGRATING TABLET Dissolve 1 tablet in mouth every twelve hours as nee ded. PANTOPRAZOLE 40 MG TABLET,DELAYED RELEASE Take 40 mg by mouth once daily. PEG 3350-ELECTROLYTES 236 GRAM-22.74 GRAM-6.74 GRAM-5.86 GRAM SOLUTION Take as directed by [facility] Digestive [facility]- 2 gallon bowel prep POLYETHYLENE GLYCOL [...] been given programming opti ons by the [employer] device truck sales representative, Michele. At this time, there is no complication from the DRG trial. Recommendations/Plan: 1. Recommend to keep her appointment with Dr. Sanchez on 10/02/2018. 2. To contact the [employer] rep if she has any further question on programming. 09/28/2018: I, Dayana Ivan, am functioning as a medical office technician for Yun Frey NP. I have reviewed and verified the above scribed note of my visit with this patient as record ed by Ms. Dayana Ivan. Jeanine Frey (Mr.) MSN, ACNP- Nurse Practitioner Acute Pain Service /[facility] [address] [place] [id number] documented in this enco unter Plan of [...]
--- OUTSIDE RECORDS SUMMARY | ~2020-07-04 | XMS | Encounter Summary ---
Demographics + + + | Address | [address] | | | [place] [address] | + + + | Home Phone [...] Providers + +------+ + | Care Director Commercial Sales Name | Role | Phone | [...] Rd | | | | | | [place], [place] | | | | | | [address] | | | +--------+ + + + [...]
--- OUTSIDE RECORDS SUMMARY | ~2020-07-04 | XMS | Encounter Summary ---
Demographics + + + | Address | [address] | | | [place] [address] | + + + | Home Phone [...] + +------+ + | Care Quality Assurance Qa Lab Analyst Name | Role | Phone | [...] + + | 10/30/ | Refill | [facility] Comprehensive | Alex Sanchez, | Refill Request | | 2018 | | Pain Center at | ,PhD [address] [facility] | | | | | [facility] | [address] | | | | | [address] | [place], [place] | | | | | [facility] | [address] | | | | | and [place], | [phone] | | | | | [facility] | | | | | | Floor [place], [place] | | | | | | [address] | | | | | | [phone] | | | +--------+--------+ + + + [...]
--- OUTSIDE RECORDS SUMMARY | ~2020-07-04 | XMS | Encounter Summary ---
Demographics + + + | Address | [address] | | | [place] [address] | + + + | Home Phone [...] Team Providers + +------+ + | Care Airplane Refueler Name | Role | Phone | + [...] 2017 | | Pain Center at | DIGITAL MARKETING ASSOCIATE [address] | | | | | [facility] | [place], [place] | | | | | [address] | [address] | | | | | [place] for [facility] | [phone] | | | | | and Healing, | | | | | | | | | | | | Floor [place], [place] | | | | | | [address] | | | | | | [phone] | | | +--------+ + + + [...]
--- OUTSIDE RECORDS SUMMARY | ~2020-07-04 | XMS | Encounter Summary ---
Demographics + + + | Address | [address] | | | [place] [address] | + + + | Home Phone [...] Team Providers + +------+ + | Care Reeling Machine Operator Name | Role | Phone [...] | | Complex | [place], | [facility] [address] | | | | | regional | ,PhD [address] | Pavilion | | | | | pain | [address] | | | | | syndrome | [address] | [address], | | | | | type 1 of | Rd | Basement | | | | | left lower | [place], [place] | [place], [place] | | | | | extremity | [address] | [address] | | | | | Muscle pain | Phone: | Phone: | | | | | Procedures | [phone] | [phone] | | | | | [place] BONE | Fax: | Fax: | | | | | &/OR JOINT | [phone] | [phone] | | | | | IMAGING | [...] | | | | | | [place] BONE | | | | | | | IMAGING, | | | | | | | LIMITED AREA | | | | | | | [place] BONE | | | | | | [...] [facility] [address] | ,PhD [address] [facility] | | | | | [address] | [address] | | | | | [address], | [place], [place] | | | | | [facility], | [address] | | | | | [place] [address] | [phone] | | | | | [phone] | | | +--------+ + + + [...]
--- OUTSIDE RECORDS SUMMARY | ~2020-07-04 | XMS | Encounter Summary ---
Demographics + + + | Address | [address] | | | [place] [address] | + + + | Home Phone [...] + +------+ + | Care Derrick Boat Captain Name | Role | Phone | [...] Medical Records | | 2017 | | [place] [facility] [address] | MD Melissa | Review | | | | [address] [facility] | | | | | | for Health and | | | | | | [facility] [address] | | | | | | [place], [place] | | | | | | [address] | | | | | | [phone] | | | +--------+ + + + [...]
--- OUTSIDE RECORDS SUMMARY | ~2020-07-04 | XMS | Encounter Summary ---
Demographics + + + | Address | [address] | | | [place] [address] | + + + | Home Phone [...] Providers + +------+ + | Care Ekg Manager Name | Role | Phone | + +------+ + | Justo Vazquez MD | PCP | | + +------+ + Encounter Details +--------+ + + + + | Date | Type | Department | Care Team | Description | +--------+ + + + + | 12/07/ | Pharmacy | [facility] | | | | 2019 | Visit | [facility] | | | | | | [address] | | | | | | Mailcode: [place] | | | | | | [facility] and | | | | | | Healing, Building [address] | | | | | | [place], [place] | | | | | | [address] | | | | | | [phone] | | | +--------+ + + + [...]
--- OUTSIDE RECORDS SUMMARY | ~2020-07-04 | XMS | Encounter Summary ---
Demographics + + + | Address | [address] | | | [place] [address] | + + + | Home Phone [...] Providers + +------+ + | Care Poultry Debeaker Name | Role | Phone | + [...] + | 08/03/ | Refill | [facility] Comprehensive | Alex Sanchez, | Refill Request | | 2018 | | Pain Center at | ,PhD [phone] [facility] | (ketamine) | | | | [facility] | [facility] | | | | | [address] | [place], [place] | | | | | [facility] | [address] | | | | | and Martina, | [phone] | | | | | [facility] | | | | | | Floor [place], [place] | | | | | | [address] | | | | | | [phone] | | | +--------+--------+ + + + [...]
--- OUTSIDE RECORDS SUMMARY | ~2020-07-04 | XMS | Encounter Summary ---
Demographics + + + | Address | [address] | | | [place] [address] | + + + | Home Phone [...] Providers + +------+ + | Care Supervisor Machine Workers Name | Role | Phone | + [...] 2015 | | Center at [facility] [address] | MD Melissa | | | | | [facility] | | | | | | for Health and | | | | | | Healing, Building [address] | | | | | | [place], [place] | | | | | | [address] | | | | | | [phone] | | | +--------+ + + + [...]
--- OUTSIDE RECORDS SUMMARY | ~2020-07-04 | XMS | Encounter Summary ---
Demographics + + + | Address | [address] | | | [place] [address] | + + + | Home Phone [...] Team Providers + +------+ + | Care Bonus Clerk Name | Role | Phone | + +------+ + | Justo Vazquez MD | PCP | | + +------+ + Encounter Details +--------+ + + + + | Date | Type | Department | Care Team | Description | +--------+ + + + + | 12/05/ | Pharmacy | [facility] | | | | 2019 | Visit | & [facility]acy | | | | | | [address] | | | | | | Mailcode: [place] | | | | | | [facility] | | | | | | Healing, [address] | | | | | | [place], [place] | | | | | | [address] | | | | | | [phone] | | | +--------+ + + + [...]
--- OUTSIDE RECORDS SUMMARY | ~2020-07-04 | XMS | Encounter Summary ---
Demographics + + + | Address | [address] | | | [place] [address] | + + + | Home Phone [...] Providers + +------+ + | Care Automotive Service Management Teacher Name | Role | Phone | + +------+ + | Justo Vazquez MD | PCP | | + +------+ + Encounter Details +--------+ + + + + | Date | Type | Department | Care Team | Description | +--------+ + + + + | 07/26/ | MyChart | [facility] Comprehensive | Ilene Bright, | Labs | | 2017 | Encounter | Pain Center at | INSTRUMENTATION AND CONTROLS TECHNICIAN [address] | | | | | [facility] | [place], [place] | | | | | [address] | [address] | | | | | [place] for [facility] | [phone] | | | | | and Healing, | | | | | | | | | | | | Floor [place], [place] | | | | | | [address] | | | | | | [phone] | | | +--------+ + + + [...]
--- OUTSIDE RECORDS SUMMARY | ~2020-07-04 | XMS | Encounter Summary ---
Demographics + + + | Address | [address] | | | [place] [address] | + + + | Home Phone [...] Providers + +------+ + | Care Power Systems Engineer Name | Role | Phone [...] JAYDEN Shane | | | | | [facility] | [place], | | | | | [address] | [place] [address] | | | | | [facility] | [phone] | | | | | and Healing, | | | | | | Building | | | | | | [place], [place] | | | | | | [address] | | | | | | [phone] | | | +--------+ + + + [...]
--- OUTSIDE RECORDS SUMMARY | ~2020-07-04 | XMS | Encounter Summary ---
Demographics + + + | Address | [address] | | | [place] [address] | + + + | Home Phone [...] Team Providers + +------+ + | Care Bung Driver Name | Role | Phone | [...] 08/11/ | Documentati | KEVIN YANEZ at [facility] | Lab, Gi Procedure | Medical Records | | 2015 | on | [facility] [address] | | Review | | | | [address] [facility] | | | | | | Health and Healing, | | | | | | [address] | | | | | | [place], [place] | | | | | | [address] | | | | | | [phone] | | | +--------+ + + + [...]
--- OUTSIDE RECORDS SUMMARY | ~2020-07-04 | XMS | Encounter Summary ---
Demographics + + + | Address | [address] | | | [place] [address] | + + + | Home Phone [...] + | Organization | [facility] | [...] [place] | | | | | [address] | | + + + + + | Bryant Farah | ECON | Unknown | | + + + + + Care Team Providers + +------+ + | Care Vp Sales Name | Role | Phone | + +------+ + PCP | Unavailable | + +------+ + Encounter Details +--------+ + + + + | Date | Type | Department | Care Team | Description | +--------+ + + + + | 03/16/ | Hospital | [facility] IP | Conversion | Back pain | | 2012 | Encounter | CONVERSION [address] | Transaction, | | | | | [address] | Provider Unknown | | | | | [place], [place] | [phone] | | | | | [address] | | | | | | [phone] | | | +--------+ + + + [...]
--- OUTSIDE RECORDS SUMMARY | ~2020-07-04 | XMS | Encounter Summary ---
Demographics + + + | Address | [address] | | | [place] [address] | + + + | Home Phone [...] Team Providers + +------+ + | Care Teachers Aide Name | Role | Phone | [...] | | | | regional | ,PhD [address] | | | | | | pain | [address] | | | | | | syndrome | [address] | | | | | | type [address] of | Rd | | | | | | left lower | [place], [place] | | | | | | extremity | [address] | | | | | | Other | Phone: | | | | | | chronic pain | [phone] | | | | | | S/P | Fax: | | | | | | insertion of | [phone] | | | | | | spinal [...] | | | | regional | ,PhD [address]86 | | | | | | pain | [address] | | | | | | syndrome | [address] | | | | | | type 1 of | Rd | | | | | | left lower | [place], [place] | | | | | | extremity | [address] | | | | | | Other | Phone: | | | | | | chronic pain | [phone] | | | | | | S/P | Fax: | | | | | | insertion of | [phone] | | | | | | spinal [...] + + | 04/26/ | Telephone | [facility] Comprehensive | Alex Sanchez, | | | 2019 | | Pain Center at | ,PhD [address] | | | | | [facility] | [address] | | | | | [address] | [place], [place] | | | | | [facility] | [address] | | | | | and Healing, | [phone] | | | | | | | | | | | Floor [place], [place] | | | | | | [address] | | | | | | [phone] | | | +--------+ + + + [...]
--- OUTSIDE RECORDS SUMMARY | ~2020-07-04 | XMS | Encounter Summary ---
Demographics + + + | Address | [address] | | | [place] [address] | + + + | Home Phone [...] Providers + +------+ + | Care Product Development Technician Name | Role | Phone | [...] Visit | Medicine Clinic at | R, MIRROR DEPARTMENT SUPERVISOR [address] [facility] | (Primary Dx); | | | | [facility] | [address] | Complex regional | | | | [address] | [place], [place] | pain syndrome type 1 | | | | [facility] | [address] | of left lower | | | | and Healing, | [phone] | extremity; 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 Surgery check-in location: [facility] Day Stay - [place] [facility] and [facility], 4th floor Surgery Check in Time: [...] office hours, call the [facility] stranding machine operator at [phone] and ask them to page him or h er. documented in this encounter Progress Notes Catie Smart NP - 11/27/2018 2:05 PM PST PREOPERATIVE CONSULT NOTE Author: Catie Smart NP Referring Physician: Alex Sanchez MD Primary Care Provider: Justo Vazquez MD Reason for Consult: Preoperative evaluation and risk assessment Proposed Procedure/Date: implant SCS; 12/05/2018 Proposed Procedure Location: [facility] HISTORY OF PRESENT ILLNESS: Tracie [...] renal failure no electrolyte abnormalities no dialysis Urology/Machine Clothing Worker: Interstitial cystitis LMP: irreg bleeding, ~11/14/2018, IUD [...] Take as directed by [facility] [employer] [facility]- 2 gallon bowel prep polyethylene [...] patient is a lso currently scheduled at [facility] [place] and is meeting inclusion [...] care. Catie Smart NP [facility] PBB PREOPERATIVE MEDICINE CLINIC AT [facility] 4TH FLOOR [address] [facility] [address] I advised the patient regarding [...]
--- OUTSIDE RECORDS SUMMARY | ~2020-07-04 | XMS | Encounter Summary ---
Demographics + + + | Address | [address] | | | [place] [address] | + + + | Home Phone [...] + +------+ + | Care On Site Property Manager Name | Role | Phone [...] | | Pain | Complex | Ilene, CUSHION COVER INSPECTOR | Catriona M, | | | | Management | regional | [address] | PSY D [address] | | | | | pain | [address] | [address] | | | | | syndrome | [place], [place] | [place], [place] | | | | | type 1 of | [address] | [address] Phone: | | | | | left lower | Phone: | [phone] | | | | | extremity | [phone] | Fax: | | | | | Intractable | Fax: | [phone] | | | | | cyclical | [phone] | | | | | | vomiting [...] | | | | | | SVCS MA | | | | | | [...] 10/11/ | Office | Pain Center at [facility] | Jamel Bravo, | 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 [address] | with mixed anxiety | | | | Center for Health | [place], [place] | and depressed mood | | | | and Healing, | [address] | (Primary Dx); | | | | | [phone] | Complex regional | | | | Floor [place], [place] | | pain syndrome type 1 | | | | [address] | | of left lower | | | | [phone] | | extremity; Abdominal | | | [...] who lives with her paren ts in [place], [place]. The patient was referred for pain [...] by physician. Concentration is 150mg/mL. Compounded by GL 2ours ([phone]), Disp: , Rfl: 5 lamoTRIgine 200 mg [...] oral recon soln, Take as directed by [facility]- 2 gallon bowel prep, Disp: 8000 [...] e. She reported doing some of the director of clinical education. For enjoyment the patient watches TV, reads, [...] time I spent was approximately 50 minutes jsjk-cm-wddr with the patient and approxima tely 1 hour 40 minutes of rep-umhr-mk-face testing, interpreting and synthesizing results. Jamel Bravo, PhD PAIN CENTER AT [facility] 15TH FLOOR [address] [facility] Mail Code: Ch15p [place] [address] documented in this en counter [...]
--- OUTSIDE RECORDS SUMMARY | ~2020-07-04 | XMS | Encounter Summary ---
Demographics + + + | Address | [address] | | | [place] [address] | + + + | Home Phone [...] Providers + +------+ + | Care Project Architect Name | Role | Phone | [...] - [place] [address] | MD Melissa | | | | | [address] | | | | | | for Health and | | | | | | Healing, Building [address] | | | | | | [place], [place] | | | | | | [address] | | | | | | [phone] | | | +--------+ + + + [...]
--- OUTSIDE RECORDS SUMMARY | ~2020-07-04 | XMS | Encounter Summary ---
Demographics + + + | Address | [address] | | | [place] [address] | + + + | Home Phone [...] Providers + +------+ + | Care Fleet Service Manager Name | Role | Phone [...] | Diagnoses | Beulah | Edu Pt Studio Sales Associate | | | | Therapy | CRPS | Janak Martinez MD | [address] | | | | | (complex | [address] | | | | | regional | [address] | Mailcode: | | | | | pain | Mailstop | [facility] | | | | | syndrome), | [id number] | for Health | | | | | lower limb | [place], [place] | and Healing, | | | | | Gait | [address] | Building [address] | | | | | disturbance | Phone: | [place], [place] | | | | | Muscle pain | [phone] | [address] | | | | | Procedures | Fax: | Phone: | | | | | PHYSICAL | [phone] | [phone] | | | | | THERAPY | [...] pain | | | | [facility] | [place] [address] | syndrome), lower | | | | [address] | [phone] | limb (Primary Dx) | | | | [facility] | | | | | | and Healing, | Specialist, Edu | | | | | Building 1, 1st | Exercise [address] | | | | | Floor [place], [place] | [address] [place], | | | | | [address] | [place] [address] | | | | | [phone] | | | +--------+---------+ + + + [...] might be different f rom the original. [id number] BRODY FARAH Date of : 1990 Start of care: 02/14/2012 Date of onset: 02/14/2012 Referring/Attending Practitioner: Janak Riojas MD . Primary/Referral Diagnosis/ICD-9: 355.71B CRPS (complex regional pain syndrome), lower limb Insurance: Payor: [facility] Plan: BCBS OUT OF STATE Product Type: PP O Service period from: 02/14/2012 to: 08/12/2012 Number visits used/authorized: 02/[address] [facility] PHYSICAL THERAPY PROGRESS NOTE SUBJECTIVE: [...] change in their status. Guillermo Sanon MSPT [facility] Services Mailcode: Ch3p [address] [facility], [address] [place] [address] documented in this encounter Plan of [...]
--- OUTSIDE RECORDS SUMMARY | ~2020-07-04 | XMS | Encounter Summary ---
Demographics + + + | Address | [address] | | | [place] [address] | + + + | Home Phone [...] Providers + +------+ + | Care Heat Welder Plastics Name | Role | Phone | + +------+ + | Justo Vazquez MD | PCP | | + +------+ + Encounter Details +--------+ + + + + | Date | Type | Department | Care Team | Description | +--------+ + + + + | 05/12/ | MyChart | [facility] at [facility] | Eaw Melchor, | RE: Schedule change | | 2017 | Encounter | [address] | DOOR OPERATOR [address] | | | | | [place] for [facility] | [address] | | | | | and Healing, | [place] [address] | | | | | | [phone] | | | | | Floor [place], [place] | | | | | | [address] | | | | | | [phone] | | | +--------+ + + + [...]
--- OUTSIDE RECORDS SUMMARY | ~2020-07-04 | XMS | Encounter Summary ---
Demographics + + + | Address | [address] | | | [place] [address] | + + + | Home Phone [...] Providers + +------+ + | Care Metal Bonding Assembler Name | Role | Phone | [...] 2016 | | Center at [facility] [address] | | severe stomach Pain) | | | | [address] [facility] | | | | | | for Health and | | | | | | Healing, [address] | | | | | | [place], [place] | | | | | | [address] | | | | | | [phone] | | | +--------+ + + + [...]
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
--- OUTSIDE RECORDS SUMMARY | ~2020-07-04 | XMS | Encounter Summary ---
Demographics + + + | Address | [address] | | | [place] [address] | + + + | Home Phone [...] Team Providers + +------+ + | Care Cartoon Animator Name | Role | Phone | [...] Vomiting; | | 2016 | | Center [place] [address] [address] | | Constipation; | | | | [address] | | Abdominal pain | | | | for Health and | | | | | | Healing, [address] | | | | | | [place], [place] | | | | | | [address] | | | | | | [phone] | | | +--------+ + + + [...]
--- OUTSIDE RECORDS SUMMARY | ~2020-07-04 | XMS | Encounter Summary ---
Demographics + + + | Address | [address] | | | [place] [address] | + + + | Home Phone [...] + +------+ + | Care Quality Assurance Supervisor Final Name | Role | Phone | [...] Rd | | | | | | [place], [place] | | | | | | [address] | | | +--------+ + + + [...]
--- OUTSIDE RECORDS SUMMARY | ~2020-07-04 | XMS | Encounter Summary ---
Demographics + + + | Address | [address] | | | [place] [address] | + + + | Home Phone [...] | | | | | extremity | [address] | [address] | | | | | Muscle pain | Phone: | Phone: | | | | | Procedures | [phone] | [phone] | | | | | REQUEST TO | Fax: | Fax: | | | | | SURGERY | [phone] | [phone] | | | | | [address] | | | +--------+---------+ + + + [...] | syndrome | [address] | | | | | type [address] of | [address] | Rd [place], | | | | | left lower | [place], [place] | [place] | | | | | extremity | [address] | [address] | | | | | Muscle pain | Phone: | Phone: | | | | | Procedures | [phone] | [phone] | | | | | REQUEST TO | Fax: | Fax: | | | | | SURGERY | [phone] | [phone] | | | | | [address] | | | | | | | LA INJ,ANES | | | | | | | AGENT,SCIATI | | | | | | | C | | | | | | | NERVE,SINGLE | | | | | | | LA INJECT | | | | | | | NERV | | | | | | | BLCK,OTHR | | | | | | | PERIPH NERV | | | | | | | LA SONO | | | | | | | GUIDE FOR | | | | | | | NEEDLE | | | | | | | PLACEMENT | | | | | | | LA MOD | | | | | | | SEDATION | | | | | | | >=5YRS SAME | | | | | | | MD/QUAL | | | | | | | PROV; INIT | | | | | | | 15 MIN LA | | | | | | [...] | | | | | Procedures | [facility] [place] | [facility], | | | | | CONSULT TO | [address] | [place] | | | | | PAIN | | [address] | | | | | MANAGEMENT | | Phone: | | | | | | | [phone] | | | | | | | Fax: | | | | | | | [phone] | +--------+--------+ + + + + Encounter Details +--------+---------+ + + + | Date | Type | Department | Care Team | Description | +--------+---------+ + + + | 12/14/ | Office | [facility] | Alex Sanchez, | Complex regional | | 2018 | Visit | Pain Center at | ,PhD [address] | pain syndrome type 1 | | | | [facility] | [address] | of left lower | | | | [address] | [place], [place] | extremity (Primary | | | | [place] [facility] | [address] | Dx); Muscle pain; | | | | and Healing, | [phone] | Pain of upper | | | | | | abdomen | | | | Floor [place], [place] | | | | | | [address] | | | | | | [phone] | | | +--------+---------+ + + + [...] the time to see us in the [facility]. It was [...] make sure this is scheduled with the Audio Installer. PRE-PROCEDURE INSTRUCTIONS 1. Please bring a courtesy car driver with you as we may give you medications that impair your ability to drive. This is necessary even if you do not receive sedation. You may take a taxi or [employer] if you are accompanied by a responsible [...] or blood thinning medications (other than aspirin), [facility] doctor who is doing your procedure will communicate with the provider who is prescribing y our anticoagulant therapy. If you do not have clear instructions on what to do with your an ticoagulant by 2 weeks before your procedure, please contact [facility] to cl arify your instructions. The phone number for questions or concerns is [phone]. documented in this encounter Progress Notes Charline [...] M D,PhD - 12/14/2017 10:25 AM PST [facility] Return Visit Date: 12/14/2017 Chief Complaint Patient presents with Back pain Low back pain Abdominal pain Pain in right leg Pain in left leg History of Present Illness: Tracie Farah is a 27 year old female, whose last appoi ntment at the [facility] [place] was October 11, 2017, for a clinic [...] review treatment plan. * Follow up with [facility] as needed. Today, she [...] was treated by Christie Madrid MD in [place], [place] for three years before she abruptly ended her practice due to illness. This left her without a doctor to help her manage her chronic pain. In addition to her CRPS symptoms (diagnosed 2010), she has some sto mach issues that she has been working with Ilene Childs DNP, SUPERVISOR PATCHING-C. She has a scar on her stomach [...] a lot of great improvements while in [place], [place]. Weaning her off of the narcotic [...] her medical history that she spent in [place], [place] where she part ook in a [...] Spinal cord stimulator trial - Nerve blocks PUBLIC SERVICE REPRESENTATIVE Brief Pain Inventory: (ten= worst possible pain [...] History Social History Narrative Single. Goes to [employer] with a light load. Has been working at [employer], can' t work on crUsermind. Has roommates. Allergies Allergen Reactions Morphine Anaphylaxis [...] by physician. Concentration is 150mg/mL. Compounded by [facility] ) LAMOTRIGINE 200 MG TABLET Take [...] [facility] Digestive [facility]- 2 [...] and summary of old medical records (source: [employer]), as summarized in the body of [...] to her by Christie Madrid MD in [place], [place]. As she has since left the [...] I jacqueline poon spoken with our medical billing instructor, Evelia Gonzalez MD who agrees that as [...] peripheral nerve stimulation. As she lives in [place], [place] with her family (3.5 hours away), [...] by Sonia Key. Alex Sanchez MD PhD Bank Guard Anesthesiology and Pain Management [facility] Post visit: [...] FOR CHILDREN | [address] | [place] [address] | | | SERVICES, CORE | [address] [...]
--- OUTSIDE RECORDS SUMMARY | ~2020-07-04 | XMS | Encounter Summary ---
Demographics + + + | Address | [address] | | | [place] [address] | + + + | Home Phone [...] Providers + +------+ + | Care Shoe Cutter Name | Role | Phone | + +------+ + | Justo Vazquez MD | PCP | | + +------+ + Encounter Details +--------+ + + + + | Date | Type | Department | Care Team | Description | +--------+ + + + + | 03/18/ | Telephone | Digestive Health | Kenny Gaspar MD | | | 2017 | | [place] [address] [address] | | | | | | [address] [facility] | | | | | | for Health and | | | | | | [facility], [address] | | | | | | [place], [place] | | | | | | [address] | | | | | | [phone] | | | +--------+ + + + [...]
--- OUTSIDE RECORDS SUMMARY | ~2020-07-04 | XMS | Clinical Summary ---
Demographics + + + | Address | [address] | | | [place] [address] | + + + | Home Phone [...] | Author | [facility] | + + + | Organization | [facility] | + + + | Address | Unknown | + + + | Phone | Unavailable | + + + Support + + +---------+ + | Name | Relationship | Address | Phone | + + +---------+ + | Patricia Colin | ECON | Unknown | | + + +---------+ + Care Team Providers + +------+ + | Care Sheet Finisher Name | Role | Phone | + +------+ + | Justo Vazquez MD | PCP | | + +------+ + Source Comments KEVIN is fully live on both [facility] Ambulatory and [facility] InPatient.[facility] Allergies + + + + + [...] Noted Date | + + + | [facility] CLINICAL PROTOCOL PATIENT (PETER) - Implanted Spinal Cord | 12/14/2018 | | Stimulator | | + + + + + | Overview: Patient has an implanted Pinocular spinal | | cord stimulator. Model#: [id number]. Contact [phone] for | | technical assistance.Contraindications:Sources of strong [...] | Right: | BARD | | | [id number] | | Port-10/05/2016Implanted: | | Chest | | | | 0 / | | 10/05/2016 by Obdulio Simpson, | | | | | | /VIKY | | (Quantity not on file) | | | | | | 204 | + +------+--------+ +--------+--------+--------+ + + | Description:Not Power | | Injectable, Progress record | | faxed from [facility] | | Hospital in [place], [place], | | [facility] RN | + + + +---+---+ +---+--------+--------+ | Slimtip DrgImplanted: Qty: 1 | | | [address] [facility] | | 01/06/ | [id number] | | on 12/05/2018 by Daniel, | | | MEDICAL SC | | 2020 | 0-50A | | Alex Alba MD,PhD at [facility] | | | | | | /[id number] | | INPATIENT REV LOC | | | | | | 371 / | + +---+---+ +---+--------+--------+ + + | Description:Level 4 | + + + +---+---+ +---+---+--------+ | Slimtip DrgImplanted: Qty: 1 | | | [facility] | | | [id number] | | on 12/05/2018 by Daniel, | | | MEDICAL SC | | | 0-50A | | Alex Alba MD,PhD at [facility] | | | | | | /[id number] | | INPATIENT REV LOC | | [...] / | | Alex Alba MD,PhD at [facility] | | | | | | [...] | | | | | | | [address] | | + +--------+ +--------+ + +--------+ | CONTRACT ADMINISTRATION SPECIALIST MEDICAID | CONTRACT ADMINISTRATION SPECIALIST | xxxxxxxx | 11/14/19 | | | [...] | 1990 | [phone] | [place] [address] | | | evita | | | [...]
--- OUTSIDE RECORDS SUMMARY | ~2020-07-04 | XMS | Encounter Summary ---
Demographics + + + | Address | [address] | | | [place] [address] | + + + | Home Phone [...] + +------+ + | Care Quality Assurance Monitor Body Name | Role | Phone | + [...] Closed | | Orthopedics | Diagnoses | [place], | [facility] | | | | | Adjustment | Ranjeet Odom MD | [address] | | | | | disorder, | [address] | [address] | | | | | unspecified | Ave | Center for | | | | | type | [facility] [place] | Health and | | | | | Procedures | [address] | Healing, | | | | | CONSULT TO | Phone: | Building [address], | | | | | BEHAVIORAL | [phone] | 12th Floor | | | | | HEALTH/PSYCH | Fax: | [place], [place] | | | | | CHRISTINA - | [phone] | [address] | | | | | ADULT | | Phone: | | | | | | | [phone] | | | | | | | Fax: | | | | | | | [phone] | +--------+--------+ + + + + Reason [...] | syndrome | [address] | [place], [place] | | | | | type 1 of | Rd | [address] | | | | | left lower | [place], [place] | Phone: | | | | | extremity | [address] | [phone] | | | | | Procedures | Phone: | Fax: | | | | | CONSULT TO | [phone] | [phone] | | | | | ORTHOPEDICS | Fax: | | | | | | AND | [phone] | | | | | | REHABILITATI [...] | 2018 | Visit | [facility] at [facility] | [address] | (Primary Dx); Left | | | | for Health and | [place], [place] | ankle pain, | | | | Healing [address] | [address] | unspecified | | | | [facility] for | [phone] | chronicity; | | | | Health and Healing, | | Adjustment disorder, | | | | Building | | unspecified type | | | | Floor [place], [place] | | | | | | [address] | | | | | | [phone] | | | +--------+---------+ + + + [...] Hemroidectomy Trial spinal cord stimulator leads 08/02/2012 [facility], Surgeon: Janak Riojas MD Cholecystectomy [...] by physician. Concentration is 150mg/mL. Compounded by [facility] ([phone]) levonorgestrel (MIRENA) 20 mcg/24 hr Intrauterine IUD [...] oral recon soln Take as directed by [facility]- 2 gallon bowel prep polyethylene [...] the [facility] and personally formulated the plan [...] become. f/u open ended Ranjeet Amanda M.D. Outpatient Services Director Foot and Ankle Surgery Department of Orthopedics & Rehabilitation [facility] [phone] >60 mins face to face consultation was [...]
--- OUTSIDE RECORDS SUMMARY | ~2020-07-04 | XMS | Encounter Summary ---
Demographics + + + | Address | [address] | | | [place] [address] | + + + | Home Phone [...] Phone | + + +---------+ + | Patircia Colin | ECON | Unknown | | + + +---------+ + Care Team Providers + +------+ + | Care Firmware Developer Name | Role | Phone | [...] | Diagnoses | Beulah | Edu Pt Presentation Specialist | | | | Therapy | CRPS | Janak Martinez MD | [address] | | | | | (complex | [address] | | | | | regional | [address] | Mailcode: | | | | | pain | Mailstop | [facility] | | | | | syndrome), | [phone] | for Health | | | | | lower limb | [place], [place] | and Healing, | | | | | Gait | [address] | Building 1 | | | | | disturbance | Phone: | [place], [place] | | | | | Muscle pain | [phone] | [address] | | | | | Procedures | Fax: | Phone: | | | | | PHYSICAL | [phone] | [phone] | | | | | THERAPY | [...] | | | | [address] | [place] [address] | syndrome), lower | | | | [address] | [phone] | limb (Primary Dx) | | | | [facility] | | | | | | and Healing, | | | | | | Building 1, | | | | | | Floor [place], [place] | | | | | | [address] | | | | | | [phone] | | | +--------+---------+ + + + [...] might be different f rom the original. [id number] BRODY FARAH Date of : 1990 Start of care: 02/14/2012 Date of onset: 02/14/2012 Referring/Attending Practitioner: Janak Riojas MD . Primary/Referral Diagnosis/ICD-9: 355.71B CRPS (complex regional pain syndrome), lower limb Insurance: Payor: [facility] Hearsay.it Plan: BCBS OUT OF STATE Product Type: PP O Service period from: 02/14/2012 to: 08/12/2012 Number visits used/authorized: 04/25 [facility] PHYSICAL THERAPY PROGRESS NOTE SUBJECTIVE: Age: [...] their status. Guillermo Sanon MSPT [facility] Outpatient Rehabilitation Services Mailcode: Ch3p 7049 [facility], [address] [place] [phone] documented in this encounter Plan of Treatment Not on filedocumented as of this encounter Procedures + +--------+ + + + | Procedure Name | Priori | Date/Time | Associated Diagnosis | Comments | | | ty | | | | + +--------+ + + + | MS THERAPEUTIC | Routin | 06/13/2012 | CRPS [...]
--- OUTSIDE RECORDS SUMMARY | ~2020-07-04 | XMS | Encounter Summary ---
Demographics + + + | Address | [address] | | | [place] [address] | + + + | Home Phone [...] Team Providers + +------+ + | Care Roughing Mill Operator Name | Role | Phone [...] | Diagnoses | Beulah | Edu Pt Color Control Supervisor | | | | Therapy | CRPS | Janak Martinez MD | [address] [address] | | | | | (complex | [address] | | | | | regional | [address] | Mailcode: | | | | | pain | Mailstop | [facility] | | | | | syndrome), | [phone] | for Health | | | | | lower limb | [place], [place] | and Healing, | | | | | Gait | [address] | [address] | | | | | disturbance | Phone: | [place], [place] | | | | | Muscle pain | [phone] | [address] | | | | | Procedures | Fax: | Phone: | | | | | PHYSICAL | [phone] | [phone] | | | | | THERAPY | [...] | | | [address] | [place] [address] | syndrome), lower | | | | [address] | [phone] | limb (Primary Dx) | | | | [facility] | | | | | | and Healing, | | | | | | Building 1, | | | | | | Floor [place], [place] | | | | | | [address] | | | | | | [phone] | | | +--------+---------+ + + + [...] might be different f rom the original. [id number] BRODY FARAH Date of : 1990 Start of care: 02/14/2012 Date of onset: 02/14/2012 Referring/Attending Practitioner: Janak Riojas MD . Primary/Referral Diagnosis/ICD-9: 355.71B CRPS (complex regional pain syndrome), lower limb Insurance: [facility] Plan: BCBS OUT OF STATE Product Type: PP O Service period from: 02/14/2012 to: 08/12/2012 Number visits used/authorized: 03/25 [facility] PHYSICAL THERAPY PROGRESS NOTE [...] any change in their status. Gu[facility] Outpatient Rehabilitation Services Mailcode: Ch3p 1046 [facility], [address] [place] [phone] documented in this encounter Plan of Treatment Not on filedocumented as of this encounter Procedures + +--------+ + + + | Procedure Name | Priori | Date/Time | Associated Diagnosis | Comments | | | ty | | | | + +--------+ + + + | [place] MANUAL THER | Routin | 06/05/2012 | CRPS (complex | | | TECH,1+REGIONS,EA 15 | e | 5:15 PM | regional pain | | | MIN | | PDT | syndrome), lower | | | | | | limb | | + +--------+ + + + | [place] THERAPEUTIC | Routin | 06/05/2012 | CRPS [...]
--- OUTSIDE RECORDS SUMMARY | ~2020-07-04 | XMS | Encounter Summary ---
Demographics + + + | Address | [address] | | | [place] [address] | + + + | Home Phone [...] + +------+ + | Care Methods Analyst Data Processing Name | Role | Phone | + +------+ + | Allegra Gandhi | PCP | | + +------+ + Encounter Details +--------+ + + + + | Date | Type | Department | Care Team | Description | +--------+ + + + + | 03/01/ | Results | [facility] | Janak Riojas, | | | 2011 | Only | Pain Center at | MD [address] [facility] | | | | | [facility] | [facility] [id number] | | | | | [address] | [place], [place] | | | | | Center for Health | [address] | | | | | and Martina, | [phone] | | | | | | | | | | | Floor [place], [place] | | | | | | [address] | | | | | | [phone] | | | +--------+ + + + [...]
--- OUTSIDE RECORDS SUMMARY | ~2020-07-04 | XMS | Encounter Summary ---
Demographics + + + | Address | [address] | | | [place] [address] | + + + | Home Phone [...] Team Providers + +------+ + | Care Garnett Feeder Name | Role | Phone | + +------+ + | Justo Vazquez MD | PCP | | + +------+ + Encounter Details +--------+ + + + + | Date | Type | Department | Care Team | Description | +--------+ + + + + | 03/16/ | Telephone | [facility] | Crys Gomez, | | | 2016 | | Center at [facility] [address] | [address] | | | | | [address] [place] | [address] | | | | | [facility] Health and | [place], [place] | | | | | [facility] 2 | [address] | | | | | [place], [place] | [phone] | | | | | [address] | | | | | | [phone] | | | +--------+ + + + [...]
--- OUTSIDE RECORDS SUMMARY | ~2020-07-04 | XMS | Encounter Summary ---
Demographics + + + | Address | [address] | | | [place] [address] | + + + | Home Phone [...] Providers + +------+ + | Care Sales Review Clerk Name | Role | Phone | [...] | Alex Alba, | [facility] [address] | | | | | regional | ,PhD [address] | Pavilion | | | | | pain | [address] | [address] | | | | | syndrome | [address] | [address], | | | | | type 1 of | Rd | Basement | | | | | left lower | [place], [place] | [place], [place] | | | | | extremity | [address] | [address] | | | | | Muscle pain | Phone: | Phone: | | | | | Procedures | [phone] | [phone] | | | | | NM BONE | Fax: | Fax: | | | | | &/OR JOINT | [phone] | [phone] | | | | | IMAGING | [...] | | 2018 | Encounter | at [facility] [address] | ,PhD [address] [facility] | | | | | [address] | [address] | | | | | [address], | [place], [place] | | | | | [facility], | [address] | | | | | [place] [address] | [phone] | | | | | [phone] | | | +--------+ + + + [...]
--- OUTSIDE RECORDS SUMMARY | ~2020-07-04 | XMS | Encounter Summary ---
Demographics + + + | Address | [address] | | | [place] [address] | + + + | Home Phone [...] Providers + +------+ + | Care Emergency Response Technician Name | Role | Phone | + +------+ + | Justo Vazquez MD | PCP | | + +------+ + Encounter Details +--------+ + + + + | Date | Type | Department | Care Team | Description | +--------+ + + + + | 10/20/ | Telephone | [facility] | Ilene Bright, | | | 2017 | | Pain Center at | COLLECTION CLERK [address] | | | | | [facility] | [place], [place] | | | | | [address] | [address] | | | | | [place] for [facility] | [phone] | | | | | and Healing, | | | | | | | | | | | | Floor [place], [place] | | | | | | [address] | | | | | | [phone] | | | +--------+ + + + [...]
--- OUTSIDE RECORDS SUMMARY | ~2020-07-04 | XMS | Encounter Summary ---
Demographics + + + | Address | [address] | | | [place] [address] | + + + | Home Phone [...] Team Providers + +------+ + | Care B2B Managed Service Sales Exec Name | Role | Phone | + +------+ + | Justo Vazquez MD | PCP | | + +------+ + Encounter Details +--------+ + + + + | Date | Type | Department | Care Team | Description | +--------+ + + + + | 09/27/ | Telephone | [facility] | Ilene Bright, | | | 2017 | | Pain Center at | REAL ESTATE COORDINATOR [address] | | | | | [facility] | [place], [place] | | | | | [address] | [address] | | | | | [place] for [facility] | [phone] | | | | | and Healing, | | | | | | | | | | | | Floor [place], [place] | | | | | | [address] | | | | | | [phone] | | | +--------+ + + + [...]
--- OUTSIDE RECORDS SUMMARY | ~2020-07-04 | XMS | Encounter Summary ---
Demographics + + + | Address | [address] | | | [place] [address] | + + + | Home Phone [...] Providers + +------+ + | Care Auto Dealership [address] Name | Role | Phone | [...] | | Spasticity | Ave | [facility] [place] | | | | | Procedures | [facility] [place] | [address] | | | | | CONSULT TO | [address] | Phone: | | | | | PAIN | Phone: | [phone] | | | | | MANAGEMENT | [phone] | Fax: | | | | | | Fax: | [phone] | | | | | | [phone] | | +--------+---------+ + + + + [...] | | MD Celia | MD Brendan [address] | | | | | Fibromyalgia | [address] | [address] | | | | | Spasticity | Ave | [address] | | | | | Epigastric | [place], [place] | Rd [place], | | | | | pain | [address] | [place] | | | | | Procedures | Phone: | [phone] | | | | | REQUEST TO | [phone] | Phone: | | | | | SURGERY | Fax: | [phone] | | | | | CORRECTIONS IDENTIFICATION TECHNICIAN | [phone] | Fax: | | | | | [place] INJECT | | [phone] | | | | | TRIGGER | | | | | | | POINT, 1 [place] | | | | | | | 2 [place] INJECT | | | | | | [...] Pain Medicine | Diagnoses | Chasity, | Gasoline Tractor Operator Chh1 | | | | / Pain | Abdominal | MD Kenny | [address] | | | | Management | pain, | [address] | [address] Center | | | | | unspecified | [facility] | for Health | | | | | location | Rd | and Healing, | | | | | Procedures | [place], [place] | Building | | | | | CONSULT TO | [address] | 1,15th Floor | | | | | PAIN | | [place], [place] | | | | | MANAGEMENT | | [address] | | | | | | | Phone: | | | | | | | [phone] | | | | | | | Fax: | | | | | | | [phone] | +--------+--------+ + + + + Encounter Details +--------+---------+ + + + | Date | Type | Department | Care Team | Description | +--------+---------+ + + + | 10/11/ | Office | [facility] Comprehensive | Vern Robertson, | Epigastric pain | | 2017 | Visit | Pain Center at | DISTRIBUTION ACCOUNTING CLERK [address] | (Primary Dx); | | | | [facility] | [place] [employer], [place] | Spasticity | | | | [address] | [address] | | | | | [place] for Health | [phone] | | | | | and Healing, | | | | | | Building | | | | | | Floor [place], [place] | | | | | | [address] | | | | | | [phone] | | | +--------+---------+ + + + [...] true warrior! * Please sign up for [employer]. This is the best way to communicate with me. It will save you time in the long run. The procedure you discussed with your doctor is called: Trigger point injection of abdomina l scar. Please make sure this is scheduled with the Senior Interactive Producer. PRE-PROCEDURE INSTRUCTIONS 1. Please bring a truck driver's offsider with you as we may give you medications that impair your ability to drive. This is necessary even if you do not receive sedation. You may take a taxi or ri [employer] if you are accompanied by a responsible [...] or blood thinning medications (other than aspirin), [facility] doctor who is doing your procedure will communicate with the provider who is prescribing y our anticoagulant therapy. If you do not have clear instructions on what to do with your an ticoagulant by 2 weeks before your procedure, please contact [facility] to cl arify your instructions. The phone number for questions or concerns is [phone]. * Consider Lidoderm topical or compound prescription [...] muscle hyper tonicity. * Consider increasing your [place] 3 fats. [place]-3 fats are precursors to mediators of inflammation [...] oil if approved by your PCP or electroformer. * Eliminate High Fructose Bruner Syrup and Sugar from your diet as [...] review treatment plan. * Follow up with [facility] as needed. It [...] - 1 12/11/2016 1:15 PM PST [facility] Return Visit Date: 10/11/2017 Chief Complaint Patient presents with Abdominal pain Back pain Foot pain History of Present Illness: Tracie Farah is a 27 year old female, whose last appoi ntment at the [facility] [place] was 07/11/17 with TERESA Clark, for a [...] conducted at [facility] in [place], [place] including barium swallow and Hydrogen breath [...] Torodol shots: only form of symptom relief. GERENTOLOGICAL PHYSIOTHERAPIST Brief Pain Inventory: (ten= worst possible pain [...] History Social History Narrative Single. Goes to [employer] with a light load. Has been working at [employer], can' t work on crCobaseches. Has roommates. Allergies Allergen Reactions Morphine Anaphylaxis [...] by physician. Concentration is 150mg/mL. Compounded by [facility] ) LAMOTRIGINE 200 MG TABLET [...] GRAM-5.86 GRAM SOLUTION Take as directed by [facility] Digestive [facility]- 2 gallon bowel prep POLYETHYLENE GLYCOL 3350 [...] review treatment plan. * Follow up with [facility] as needed. IGuillermo am scribing for Vern Robertson NP on 10/11/2017 I have reviewed and verified the above scribed note of my visit with this patient as record ed by Guillermo Hope. Vern Robertson NP PAIN CENTER AT [facility] 15TH FLOOR [address] Mail Code: Ch15p [place] [address] documented in this e ncounter Plan of Treatment Not on filedocumented as of this encounter Visit Diagnoses + + | Diagnosis | + + | Epigastric pain - Primary Abdominal pain, epigastric | + + | Spasticity Abnormal involuntary movements | + + documented in this encounter
--- OUTSIDE RECORDS SUMMARY | 2020-07-04 07:18 | XMS ---
PreManage Notification: BRODY LINCOLN Security [employer] Cook Events No recent Security Events currently on file CRITERIA MET - Group Notification - 6 ED Visits in 6 Months - [facility] - Has Care Guidelines - PDMP - [facility] - 2 Visits in 30 Days CARE PROVIDERS MARCELINO PERRY Internal Medicine Current PHONE: [phone] Aron Hannah Anesthesiology: Pain Medicine 07/18/2018-Current PHONE: Unknown Guidelines Source: [facility] Guidelines Date: 08/22/2019 Care Recommendation: PATIENT HAS HISTORY COMPLEX REEGIONAL PAIN SYNDROME WELL CYCLICAL ABDOMINAL PAIN/NAUSEA/VOMITING.\T\nbsp; UNDER TREATMENT WITH ARON HANNAH MD PHD PAIN MANAGMENT [facility].\T\nbsp; FOLLOW THIS REGIMEN WHEN PRESENTING TO ED FOR RESOLUTION OF SYMPTOMS: *HYDRATION IV *HYDROMORPHONE 1MG IV * KETOROLAC 30 MG IV *PROMETHAZINE 25MG IV Additional care guidelines exist for the following facilities: [facility] ( 05/21/2019 ) Care History Medical/Surgical 06/30/2020 [facility] Patient still scheduled to see Dr. Trujillo on 07/03/[address] Quach on 07/07/2020 06/24/2020 [facility] Patient scheduled with Dr. Trujillo on 07/03/2020 at 15:00. 2020 [facility] - PATIENT HAS A CONSULT WITH DR TRUJILLO ON 06/05/2020. [place] VISIT COUNT (12 MO.) 12 [facility] H. TOTAL 12 NOTE: Visits indicate total known visits. ED/UCC VISIT TRACKING (12 MO.) 07/04/2020 07:16 [facility] [place] TYPE: Emergency COMPLAINT: - NECK PAIN 06/28/2020 16:25 [facility] [place] TYPE: Emergency COMPLAINT: - VOMITING, ABD PAIN DIAGNOSES: - Other termite control servicer (current) drug therapy - Allergy status to narcotic agent status - Complex regional pain syndrome I of left lower limb - Elevated white blood cell count, unspecified - Unspecified abdominal pain - Epigastric pain 06/23/2020 16:57 [facility] [place] TYPE: Emergency COMPLAINT: - ABDOMINAL PAIN/VOMITING DIAGNOSES: - Allergy status to narcotic agent status - Other senior care (current) drug therapy - Unspecified abdominal pain - Nausea with vomiting, unspecified 06/02/2020 15:[address] [facility] [place] TYPE: Emergency COMPLAINT: - ABD PAIN, VOMITING DIAGNOSES: - Allergy status to other drugs, medicaments and biological sub - Unspecified abdominal pain - custodial (current) use of anticoagulants - Other senior care (current) drug therapy - Allergy status to narcotic agent status 05/29/2020 19:[address] [facility] [place] TYPE: Emergency COMPLAINT: - ABD PAIN,VOMITING DIAGNOSES: - Allergy status to narcotic agent status - Unspecified abdominal pain - Complex regional pain syndrome I of other specified site - Other termite control servicer (current) drug therapy 05/26/2020 19:[address] [facility] [place] [place] TYPE: Emergency COMPLAINT: - ABDOMINAL PAIN/VOMITING DIAGNOSES: - Allergy status to narcotic agent status - Unspecified abdominal pain - Complex regional pain syndrome I of other specified site - Other senior care (current) drug therapy - Vomiting, unspecified - Unspecified abdominal pain 03/23/2020 06:39 [facility] [place] [place] TYPE: Emergency COMPLAINT: - ABD PAIN, VOMITING 03/09/2020 13:21 [facility] [place] TYPE: Emergency COMPLAINT: - ABD PAIN, VOMITING DIAGNOSES: - Personal history of nicotine dependence - Complex regional pain syndrome I, unspecified - Allergy status to narcotic agent status - Other senior care (current) drug therapy - Nausea with vomiting, unspecified 03/05/2020 10:51 [facility] [place] TYPE: Emergency COMPLAINT: - ABD PAIN, VOMITING DIAGNOSES: - Other senior care (current) drug therapy - Other chronic pain - Nicotine dependence, unspecified, uncomplicated - custodial (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 - Allergy status to other drugs, medicaments and biological sub - Cyclical vomiting syndrome unrelated to migraine - Unspecified abdominal pain - Allergy status to narcotic agent status 08/12/2019 15:11 [facility] [place] TYPE: Emergency COMPLAINT: - ABD PAIN, NAUSEA 08/10/2019 13:43 [facility] [place] TYPE: Emergency COMPLAINT: - ABD/BACK PAIN, VOMITING DIAGNOSES: - Other senior care (current) drug therapy - Upper abdominal pain, unspecified - Allergy status to narcotic agent status - Cyclical vomiting, not intractable 08/08/2019 18:18 [facility] [place] TYPE: Emergency COMPLAINT: - SEVERE ABD AND BACK PAIN, VOMITING DIAGNOSES: - Other termite control servicer (current) drug therapy - Complex regional pain syndrome I, unspecified - Unspecified abdominal pain - Allergy status to other drugs, medicaments and biological sub - Allergy status to narcotic agent status INPATIENT VISIT TRACKING (12 MO.) 03/23/2020 15:02 [facility] [place] TYPE: Medical Surgical COMPLAINT: - BILATERAL PE DIAGNOSES: - rat exterminator (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 - Presence of (intrauterine) contraceptive device - Right upper quadrant pain - Complex regional pain syndrome I of left lower limb - Nonspecific elevation of levels of transaminase and lactic ac - Right upper quadrant pain - Interstitial cystitis (chronic) without hematuria - Complex regional pain syndrome I of left lower limb - Other termite control servicer (current) drug therapy - Cyclical vomiting syndrome unrelated to migraine - Major depressive disorder, single episode, unspecified - Cyclical vomiting syndrome unrelated to migraine - rat exterminator (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 - Nonspecific elevation of levels of transaminase and lactic ac - Other pulmonary embolism without acute cor pulmonale - Allergy status to narcotic agent status - Presence of (intrauterine) contraceptive device - Other senior care (current) drug therapy - Allergy status to narcotic agent status - Major depressive disorder, single episode, unspecified - Opioid dependence, uncomplicated - Opioid dependence, uncomplicated - Interstitial cystitis (chronic) without hematuria 08/12/2019 15:12 [facility] [place] TYPE: Observation COMPLAINT: - INTACKABLE ABDOMINAL PAIN DIAGNOSES: - rat exterminator (current) use of opiate analgesic - Allergy status to narcotic agent status - Unspecified mood [affective] disorder - Complex regional pain syndrome I of left lower limb - Nausea with vomiting, unspecified - Right upper quadrant pain - Chronic pain syndrome - Other senior care (current) drug therapy - Other constipation [email or web address]
[2020-07-04] MEDS ORDERED: CYCLOBENZAPRINE10 MG PO (09:35)
== END 2020-07-04 10:07 | disposition home or self-care (01) ==
LOC: ED 07:16
DX: M43.6 Torticollis (principal); Z88.5 Allergy status to narcotic agent; Z88.8 Allergy status to other drugs, medicaments and biological substances; Z79.899 Other long term (current) drug therapy
CPT/HCPCS: 96372; 99283; J1170

== ENCOUNTER 2020-08-04 08:30 | Day surgery (SDC) | payer MEDICARE, OTHER ==
[~2020-08-04] VITALS: Ht 165.1 cm; Wt 95.2 kg
--- NOTE | ~2020-08-04 | OR ---
[facility] [address] [place], [place] [address] Draft DATE OF OPERATION: 08/04/2020 SURGEON: Kamlesh Spence MD PREOPERATIVE DIAGNOSIS: Interstitial cystitis. POSTOPERATIVE DIAGNOSIS: Interstitial cystitis. NAMES OF PROCEDURES: Cystoscopy with hydrodistention of the bladder. ANESTHESIA: General LMA. ESTIMATED BLOOD LOSS: Minimal. COMPLICATIONS: None. SPECIMENS: None. DRAINS: None. INDICATIONS FOR PROCEDURE: Brody is a very pleasant 30-year-old female with a history of focal regional pains and chronic regional pain syndrome and interstitial cystitis, who is well known to me. She has undergone multiple cystoscopies with hydrodistention in the past as she responds quite nicely to it. She was recently scheduled to undergo hydrodistention approximately one month ago, however, her procedure was canceled because she was found to be COVID positive. She has been symptom free for greater than one month and now presents today to undergo routine cystoscopy with hydrodistention. FINDINGS: On cystoscopy, there was no evidence of any suspicious bladder masses, stones or lesions. Bilateral ureteral orifices are in their normal anatomic location effluxing PATIENT NAME: BRODY LINCOLN OPERATIVE REPORT DATE OF : [birth year] REPORT #: [id number] PHYSICIAN: KAMLESH SPENCE MD PCP: MARCELINO PERRY MD REPORT IS CONFIDENTIAL AND NOT TO BE RELEASED WITHOUT AUTHORIZATION [facility] [address] [place] [address] [address] [place], [place] [address] Draft clear urine. As per previous cystoscopies, there was a transverse scar present covering her posterior bladder wall. This has been present for some time now. The patient's bladder filled with a total of 550 mL before urine began to trickle out of the patient's bladder during filling. The patient was hydrodistended at 550 mL for a total of 9 minutes. DESCRIPTION OF PROCEDURE: After informed consent was obtained, the patient was taken back to the operating room. She was transferred from the [facility] to the operating room table, where general anesthesia was induced. She was placed in the dorsal lithotomy position and the genitalia prepped and draped in a standard sterile fashion. Using a 30-degree lens on a 22.5-Barbadian introducer, rigid cystoscope was inserted through the urethra into her bladder under direct visualization. Panendoscopic views of the bladder were then obtained. Please see above findings. The patient's bladder was emptied initially of any residual urine. It was then filled to a total of 550 mL for 9 minutes. As per her previous hydrodistentions, the patient's bladder does leak fluid when filled to capacity, indicating some loss of compliance. After the 9 minutes was up, the patient's bladder was then drained and the amount of fluid in the bladder was calculated at 550 mL. Repeat cystoscopy revealed the presence of some minor petechiae near the right and left ureteral orifices, otherwise there was no active oozing or bleeding of the bladder wall mucosa. The patient's bladder was drained again and the cystoscope was removed. The procedure was then terminated. The patient tolerated the procedure well without any complication. She will now be transferred to the postanesthesia care unit in stable condition. DISPOSITION: The patient will be discharged to home later today once she awakes from anesthesia. I discussed the details of today's procedure with the patient's mother Patricia and answered all of her questions. The patient will be sent home with Percocet dispense #50 p.r.n. pain. She was also given a prescription for Cipro 500 mg one tablet p.o. b.i.d. for a total of 7 days, along with Pyridium 200 mg p.o. t.i.d. p.r.n. dysuria, total of 21 pills. She will be scheduled return to clinic in three months to undergo another history and physical in preparation for her next distention. MD JASWANT Michaels/MODInder PATIENT NAME: BRODY LINCOLN OPERATIVE REPORT DATE OF : [birth year] REPORT #: [id number] PHYSICIAN: KAMLESH SPENCE MD PCP: MARCELINO PERRY MD REPORT IS CONFIDENTIAL AND NOT TO BE RELEASED WITHOUT AUTHORIZATION [facility] [address] [facility] [place], [place] [address] Draft /[id number] Copies: ~ PATIENT NAME: BRODY LINCOLN OPERATIVE REPORT DATE OF : [birth year] REPORT #: [id number] PHYSICIAN: KAMLESH SPENCE MD PCP: MARCELINO PERRY MD REPORT IS CONFIDENTIAL AND NOT TO BE RELEASED WITHOUT AUTHORIZATION
[~2020-08-04 08:30] MED LIST changes: +GAVILYTE-C SO4000 ML PO; +KETOROLAC15 MG/1 M2 IM; +MIRALAX17 GM PO
[2020-08-04] MEDS ORDERED: KETOROLAC15 MG/1 M1 INJ (08:47)
--- NOTE | 2020-08-04 12:32 | NUR ---
08/04/20 1232 Darlin Mtz 1114 PT ARRIVED IN PACU. 1120 RN TOOK OVER CARE FROM FORTUNATO TUCKER. PT C/O BLADDER PAIN 06/23. 1122 FENTANYL 50MCG GIVEN IVP. 1125 ON BEDPAN VOIDING AND CRYING OUT IN PAIN. 1129 C/O BLADDER PAIN AFTER VOIDING. FENTANYL 50MCG GIVEN IVP. 1135 TAKING SIPS OF WATER. 1143 C/O BLADDER PAIN 07/24. FENTANYL 50MCG GIVEN IVP. 1145 ON BEDPAN VOIDING AND CRYING OUT IN PAIN. 1150 NO CHANGE IN BLADDER PAIN. DILAUDID 0.5MG GIVEN IVP. VICE PRESIDENT SALES WITH PT. 1155 PAIN DOWN TO 8/10. DILAUDID 0.5MG GIVEN IVP. 1200 PYRIDIUM GIVEN PO WITH SIPS OF WATER. 1204 C/O BLADDER PAIN 06/23. FENTANYL 50MCG GIVEN IVP. 1205 ON BEDPAIN VOIDING AND CRYING OUT. 1215 TO DS TO EAT JELLO AND TAKE PO PAIN MEDS. PT HAPPY WITH THIS PLAN.
--- NOTE | 2020-08-04 12:35 | NUR ---
PT ARRIVES TO DS RM 10 FROM PACU AWAKE AND ALERT. PT IN POSITION, RATING PAIN 8.5/10. PT DENIES NAUSEA AT THIS TIME. SCD IS OFF OF LEFT FOOT PER PT REQUEST DUE TO CRPS. PT ENC TO PUMP LEFT FOOT PERIODICALLY TO REDUCE RISK OF DVT. PT PROVIDED ICED WATER AND PHONE PER REQUEST. CALL LIGHT WITHIN REACH.
--- NOTE | 2020-08-04 12:47 | NUR ---
REPORT RECIEVED. MD CONTACTED TO UPDATE ON PATIENT STATUS. NEW ORDERS RECIEVED FOR PAIN MEDICATION.
--- NOTE | 2020-08-04 13:16 | NUR ---
STEADY ON FEET FOR AMBULATION TO BR. DENIES NAUSEA. REPORTS PAIN IS DECREASING AND IS NOW 6.5/10. PT STATES, "I THINK IM READY TO GO HOME" DISCHARGE INSTRUCTIONS WILL BE REVIEWED AT BEDSIDE AND ORIGIONAL RX GIVEN TO PT.
--- NOTE | 2020-08-04 13:28 | NUR ---
PT ALERT, ORIENTED AND SEEMS AT EASE. PT HAS HAD PROCEDURE BEFORE. ALL QUESTIONS ASKED WERE ANSWERED. PT REQUESTED PRAYER, WILL FOLLOW
== END 2020-08-04 13:36 | disposition home or self-care (01) ==
LOC: OPS 08:30 → DS 08:30 → OPS 08:45
PROVIDERS: ATTEND Urology
PROC: 0T7B8ZZ Dilation of Bladder, Via Natural or Artificial Opening Endoscopic (ICD-10-PCS; principal; 2020-08-04 08:45)
DX: N30.10 Interstitial cystitis (chronic) without hematuria (principal); N32.89 Other specified disorders of bladder; G90.50 Complex regional pain syndrome I, unspecified; K21.9 Gastro-esophageal reflux disease without esophagitis; Z79.899 Other long term (current) drug therapy; Z79.82 Long term (current) use of aspirin; Z88.5 Allergy status to narcotic agent; Z88.8 Allergy status to other drugs, medicaments and biological substances
CPT/HCPCS: 00910; J0131; J0696; J1100; J1170; J1885; J2001; J2405; J2704; J3010; J7121

== ENCOUNTER 2020-08-12 03:16 | Emergency (ER) | payer MEDICARE, OTHER ==
[~2020-08-12] VITALS: Ht 165.1 cm; Wt 95.2 kg
[~2020-08-12 03:16] MED LIST changes: +KETOROLAC15 MG/1 M1 INJ
--- OUTSIDE RECORDS SUMMARY | 2020-08-12 03:18 | XMS ---
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 No recent Security Events currently on file CRITERIA MET - Group Notification - 6 ED Visits in 6 Months - [facility] - Has Care Guidelines - PDMP CARE PROVIDERS VICKY [facility] Internal Medicine Current PHONE: [phone] Aron Hannah Anesthesiology: Pain Medicine 07/18/2018-Current PHONE: Unknown Guidelines Source: [facility] Guidelines Date: 08/22/2019 Care Recommendation: PATIENT HAS HISTORY COMPLEX REEGIONAL PAIN SYNDROME WELL CYCLICAL ABDOMINAL PAIN/NAUSEA/VOMITING.\T\nbsp; UNDER TREATMENT WITH ARON HANNAH MD PHD PAIN MANAGMENT [facility].\T\nbsp; FOLLOW THIS REGIMEN WHEN PRESENTING TO ED FOR RESOLUTION OF SYMPTOMS: *HYDRATION IV *HYDROMORPHONE 1MG IV * KETOROLAC 30 MG IV *PROMETHAZINE 25MG IV Additional care guidelines exist for the following facilities: [facility] ( 05/21/2019 ) Care History Medical/Surgical 07/07/2020 [facility] Patient rescheduled 07/07/[address] Quach for 07/28/2020. 06/30/2020 [facility] Patient still scheduled to see Dr. Monahan on 07/03/[address] Quach on 07/07/2020 06/24/2020 [facility] Patient scheduled with Dr. Monahan on 07/03/2020 at 15:00. E.D. VISIT COUNT ([address] 10 [facility] H. TOTAL 10 NOTE: Visits indicate total known visits. ED/UCC VISIT TRACKING (12 MO.) 08/12/2020 03:16 [facility] [place] TYPE: Emergency COMPLAINT: - ABDOMENAL PAIN,VOMITING 07/04/2020 07:16 [facility] [place] TYPE: Emergency COMPLAINT: - NECK PAIN NON INJ DIAGNOSES: - Other oysterman (current) drug therapy - Allergy status to narcotic agent status - Torticollis - Cervicalgia - Allergy status to other drugs, medicaments and biological sub 06/28/2020 16:25 [facility] [place] TYPE: Emergency COMPLAINT: - VOMITING, ABD PAIN DIAGNOSES: - Other oysterman (current) drug therapy - Allergy status to narcotic agent status - Complex regional pain syndrome I of left lower limb - Elevated white blood cell count, unspecified - Unspecified abdominal pain - Epigastric pain 06/23/2020 16:57 [facility] [place] TYPE: Emergency COMPLAINT: - ABDOMINAL PAIN/VOMITING DIAGNOSES: - Allergy status to narcotic agent status - Other oysterman (current) drug therapy - Unspecified abdominal pain - Nausea with vomiting, unspecified [facility] COMPLAINT: - ABD PAIN, VOMITING DIAGNOSES: - Allergy status to other drugs, medicaments and biological sub - Unspecified abdominal pain - alf (current) use of anticoagulants - Other oysterman (current) drug therapy - Allergy status to narcotic agent status [facility]2020 [facility] COMPLAINT: - ABD PAIN,VOMITING DIAGNOSES: - Allergy status to narcotic agent status - Unspecified abdominal pain - Complex regional pain syndrome I of other specified site - Other shelter (current) drug therapy [facility]26[facility]2020 [facility] COMPLAINT: - ABDOMINAL PAIN/VOMITING DIAGNOSES: - Allergy status to narcotic agent status - Unspecified abdominal pain - Complex regional pain syndrome I of other specified site - Other oysterman (current) drug therapy - Vomiting, unspecified - Unspecified abdominal pain 03/23/2020 06:39 [facility] [place] TYPE: Emergency COMPLAINT: - ABD PAIN, VOMITING 03/09/2020 13:21 [facility] [place] TYPE: Emergency COMPLAINT: - ABD PAIN, VOMITING DIAGNOSES: - Personal history of nicotine dependence - Complex regional pain syndrome I, unspecified - Allergy status to narcotic agent status - Other oysterman (current) drug therapy - Nausea with vomiting, unspecified 03/05/2020 10:51 [facility] [place] TYPE: Emergency COMPLAINT: - ABD PAIN, VOMITING DIAGNOSES: - Other oysterman (current) drug therapy - Other chronic pain - Nicotine dependence, unspecified, uncomplicated - 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 - Allergy status to other drugs, medicaments and biological sub - Cyclical vomiting syndrome unrelated to migraine - Unspecified abdominal pain - Allergy status to narcotic agent status 08/12/2019 15:11 [facility] [place] TYPE: Emergency COMPLAINT: - ABD PAIN, NAUSEA INPATIENT VISIT TRACKING (12 MO.) 03/23/2020 15:02 [facility] [place] TYPE: Medical Surgical COMPLAINT: - BILATERAL PE DIAGNOSES: - alf (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 - Presence [...] Cyclical vomiting syndrome unrelated to migraine - 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 - Nonspecific elevation of levels of transaminase and lactic ac - Other pulmonary embolism without acute cor pulmonale - Allergy status to narcotic agent status - Presence of (intrauterine) contraceptive device - Other shelter (current) drug therapy - Allergy status to narcotic agent status - Major depressive disorder, single episode, unspecified - Opioid dependence, uncomplicated - Opioid dependence, uncomplicated - Interstitial cystitis (chronic) without hematuria 08/12/2019 15:12 [facility] [place] TYPE: Observation COMPLAINT: - INTACKABLE ABDOMINAL PAIN DIAGNOSES: - 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
== END 2020-08-12 06:16 | disposition home or self-care (01) ==
LOC: ED 03:16
DX: R11.10 Vomiting, unspecified (principal); R10.84 Generalized abdominal pain; E86.0 Dehydration; Z88.5 Allergy status to narcotic agent; Z88.8 Allergy status to other drugs, medicaments and biological substances; Z79.899 Other long term (current) drug therapy
CPT/HCPCS: 74022; 96372; 99284-25; J0780; J1200; J1885

== ENCOUNTER 2020-08-14 18:52 | Emergency (ER) | payer MEDICARE, OTHER ==
[~2020-08-14] VITALS: Ht 165.1 cm; Wt 95.2 kg
--- OUTSIDE RECORDS SUMMARY | 2020-08-14 18:56 | XMS ---
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 Guidelines Date: 08/22/2019 Care Recommendation: PATIENT HAS HISTORY COMPLEX REEGIONAL PAIN SYNDROME WELL CYCLICAL ABDOMINAL PAIN/NAUSEA/VOMITING.\T\nbsp; UNDER TREATMENT WITH ARON HANNAH MD PHD PAIN MANAGMENT [facility].\T\nbsp; FOLLOW THIS REGIMEN WHEN PRESENTING TO ED FOR RESOLUTION OF SYMPTOMS: *HYDRATION IV *HYDROMORPHONE 1MG IV * KETOROLAC 30 MG IV *PROMETHAZINE 25MG IV Additional care guidelines exist for the following facilities: [facility] ( 05/21/2019 ) Care History Medical/Surgical 07/07/2020 [facility] Patient rescheduled 07/07/[address] Quach for 07/28/2020. 06/30/2020 [facility] Patient still scheduled to see Dr. Monahan on 07/03/[address] Quach on 07/07/2020 06/24/2020 [facility] Patient scheduled with Dr. Monahan on 07/03/2020 at 15:00. E.D. VISIT COUNT (12 MO.) 11 [facility] H. TOTAL 11 NOTE: Visits indicate total known visits. ED/UCC VISIT TRACKING (12 MO.) 08/14/2020 18:53 [facility] [place] TYPE: Emergency COMPLAINT: - ABDOMINAL PAIN, N/V 08/12/2020 03:[address] [facility] [place] [facility]: Emergency COMPLAINT: - ABDOMENAL PAIN,VOMITING 07/04/2020 07:[address] [facility] [place] [facility]: Emergency COMPLAINT: - NECK PAIN NON INJ DIAGNOSES: - Other correction (current) drug therapy - Allergy status to narcotic agent status - Torticollis - Cervicalgia - Allergy status to other drugs, medicaments and biological sub 06/28/2020 16:25 [facility] [place] TYPE: Emergency COMPLAINT: - VOMITING, ABD PAIN DIAGNOSES: - Other manager intermediate (current) drug therapy - Allergy status to narcotic agent status - Complex regional pain syndrome I of left lower limb - Elevated white blood cell count, unspecified - Unspecified abdominal pain - Epigastric pain 06/23/2020 16:[address] [facility] [address] [facility] [place] TYPE: Emergency COMPLAINT: - ABDOMINAL PAIN/VOMITING DIAGNOSES: - Allergy status to narcotic agent status - Other correction (current) drug therapy - Unspecified abdominal pain - Nausea with vomiting, unspecified 06/02/2020 15:[address] [facility] [address] [facility] [place] TYPE: Emergency COMPLAINT: - ABD PAIN, VOMITING DIAGNOSES: - Allergy status to other drugs, medicaments and biological sub - Unspecified abdominal pain - [facility] (current) use of anticoagulants - Other manager intermediate (current) drug therapy - Allergy status to narcotic agent status 05/29/2020 19:[address] [facility] [address] [facility] [place] TYPE: Emergency COMPLAINT: - ABD PAIN,VOMITING DIAGNOSES: - Allergy status to narcotic agent status - Unspecified abdominal pain - Complex regional pain syndrome I of other specified site - Other manager intermediate (current) drug therapy 05/26/2020 19:15 [facility] [place] TYPE: Emergency COMPLAINT: - ABDOMINAL PAIN/VOMITING DIAGNOSES: - Allergy status to narcotic agent status - Unspecified abdominal pain - Complex regional pain syndrome I of other specified site - Other correction (current) drug therapy - Vomiting, unspecified - Unspecified abdominal pain 03/23/2020 06:39 [facility] [place] TYPE: Emergency COMPLAINT: - ABD PAIN, VOMITING 03/09/2020 13:21 [facility] [place] TYPE: Emergency COMPLAINT: - ABD PAIN, VOMITING DIAGNOSES: - Personal history of nicotine dependence - Complex regional pain syndrome I, unspecified - Allergy status to narcotic agent status - Other correction (current) drug therapy - Nausea with vomiting, unspecified 03/05/2020 10:51 [facility] [place] TYPE: Emergency COMPLAINT: - ABD PAIN, VOMITING DIAGNOSES: - Other correction (current) drug therapy - Other chronic pain - Nicotine dependence, unspecified, uncomplicated - 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 (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 - Allergy status to other drugs, medicaments and biological sub - Cyclical vomiting syndrome unrelated to migraine - Unspecified abdominal pain - Allergy status to narcotic agent status INPATIENT VISIT TRACKING (12 MO.) 03/23/2020 15:02 [facility] [place] TYPE: Medical Surgical COMPLAINT: - BILATERAL PE DIAGNOSES: - [facility] (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 - Presence of (intrauterine) contraceptive device - Right upper quadrant pain - Complex regional pain syndrome I of left lower limb - Nonspecific elevation of levels of transaminase and lactic ac - Right upper quadrant pain - Interstitial cystitis (chronic) without hematuria - Complex regional pain syndrome I of left lower limb - Other correction (current) drug therapy - Cyclical vomiting syndrome unrelated to migraine - Major depressive disorder, single episode, unspecified - Cyclical vomiting syndrome unrelated to migraine - oysterman (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 - Nonspecific elevation of levels of transaminase and lactic ac - Other pulmonary embolism without acute cor pulmonale - Allergy status to narcotic agent status - Presence of (intrauterine) contraceptive device - Other correction (current) drug therapy - Allergy status to narcotic agent status - Major depressive disorder, single episode, unspecified - Opioid dependence, uncomplicated - Opioid dependence, uncomplicated - Interstitial cystitis (chronic) without hematuria [email or web address]
== END 2020-08-15 02:57 | disposition home or self-care (01) ==
LOC: ED 18:52
DX: R11.15 Cyclical vomiting syndrome unrelated to migraine (principal); Z88.8 Allergy status to other drugs, medicaments and biological substances; Z88.5 Allergy status to narcotic agent; Z79.899 Other long term (current) drug therapy
CPT/HCPCS: 80053; 81001; 83690; 83735; 85025; 93971; J1885; J2550; J7030

== ENCOUNTER 2020-08-23 17:35 | Emergency (ER) | payer MEDICARE, OTHER ==
[~2020-08-23] VITALS: Ht 165.1 cm; Wt 90.7 kg
--- OUTSIDE RECORDS SUMMARY | ~2020-08-23 | XMS | Encounter Summary ---
Demographics + + + | Address | [address] | | | [place] [address] | + + + | Home Phone | | + + + | Preferred Language | Unknown | + + + | Marital Status | Single | + + + | Druze Affiliation | [id number] | + + + | Race | White | + + + | Ethnic Group | Not or | + + + Author + + + | Author | [facility] | | | and [place] | + + + | Organization | [facility] | | | and [place] | + + + | Address | Unknown | + + + | Phone | Unavailable | + + + Support + + + + + | Name | Relationship | Address | Phone | + + + + + | Patricia C Hummell | ECON | [address] | | | | | [place] | | | | | [address] | | + + + + + | Bryant Farah | ECON | Unknown | | + + + + + Care Team Providers + +------+ + | Care Basket Braider Name | Role | Phone | + +------+ + PCP | Unavailable | + +------+ + Encounter Details +--------+ + + + + | Date | Type | Department | Care Team | Description | +--------+ + + + + | 03/16/ | Hospital | [facility] | Conversion | Back pain | | 2012 | Encounter | CONVERSION [address] | Transaction, | | | | | [address] | Provider Unknown | | | | | [place], [place] | [phone] | | | | | [address] | | | | | | [phone] | | | +--------+ + + + [...] on file | | + + + documented as of this encounter Plan of Treatment Not on filedocumented as of this encounter Procedures + +--------+ + + + | Procedure Name | Priori | Date/Time | Associated Diagnosis | Comments | | | ty | | | | + +--------+ + + + | XR LUMBAR SPINE 2 OR | Routin | 03/15/2013 | | Results for this | | 3 VW | e | 1:23 PM | | procedure are in the | | | | PDT | | results section. | + +--------+ + + + documented in this encounter Results XR Lumbar Spine 2 or 3 Vw (03/15/2013 1:23 PM PDT) + + | Specimen | + + | | + + + + + | Narrative | Performed At | + + + | This is a non-reportable procedure without a radiologist report and | | | is used for image storage only | | + + + + + | Procedure Note | + + | ÓscarPete Tony - 07/06/2019 5:35 PM PDT This is a non-reportable procedure | | without a radiologist report and isused for image storage only | + + documented in this encounter Visit Diagnoses + + | Diagnosis | + + | Back pain Backache, unspecified | + + documented in this encounter"
--- OUTSIDE RECORDS SUMMARY | ~2020-08-23 | XMS | Encounter Summary ---
Demographics + + + | Address | [address] | | | [place] [address] | + + + | Home Phone | | + + + | Preferred Language | Unknown | + + + | Marital Status | Single | + + + | Synagogue Affiliation | FMD | + + + | Race | White | + + + | Ethnic Group | Not or | + + + Author + + + | Author | [facility] | + + + | Organization | [facility] | + + + | Address | Unknown | + + + | Phone | Unavailable | + + + Support + + +---------+ + | Name | Relationship | Address | Phone | + + +---------+ + | Patricia Colin | ECON | Unknown | | + + +---------+ + Care Team Providers + +------+ + | Care Tour Bus Driver/Guide Name | Role | Phone | + +------+ + | Justo Vazquez MD | PCP | | + +------+ + Reason for Visit + +--------+ + | Reason | Onset | Comments | | | Date | | + +--------+ + | Letter Encounter | 05/01/ | plan of care | | | 2017 | | + +--------+ + Encounter Details +--------+ + + + + | Date | Type | Department | Care Team | Description | +--------+ + + + + | 05/01/ | Telephone | [facility] Ilene | Alex Sanchez, | Letter Encounter | | 2018 | | [facility] at | ,PhD [phone] | (plan of care) | | | | [facility] | [facility] | | | | | [address] | [place], [place] | | | | | [facility] | [address] | | | | | and Healing, | [phone] | | | | | Building | | | | | | Floor [place], [place] | | | | | | [address] | | | | | | [phone] | | | +--------+ + + + [...] + + documented as of this encounter Miscellaneous Notes Telephone Encounter - Holly Edouard MA - 05/03/2018 9:09 AM FELIPE was awaiting records fro m her ER visits to use as a guide for the letter. Has she had them sent? 05/03 @ 910, called patient, she did sign a KELIN with the ER around 04/21/2018. I let her know that it can take 30 days to receive records. She will call them to see if they can send it s ooner. I also confirmed her upcoming appt on 05/08. MB RMA elephone Encounter - Holly Edouard MA - 05/02/2018 10:18 AM PDTChart review: patient seen 04/19/18 Ms. Farah has chronic abdominal pain of unclear etiology. She presents to the ER frequen tly, and is greatly helped by Toradol, antiemetics and a dose of IV opioid. I will review he r records and provide her with a letter summarizing what therapies work for her. Forwarded to Dr. Sanchez regarding letter.Electronically signed by Holly Edouard MA at 04/14 10:19 AM PDTTelephone Encounter - Paulina Alcala - 05/01/2018 8:21 AM PDTPatient is ca lling to see If Dr. Sanchez has or will write a letter of instructions or "care plane of wha t the ER doctors can do for her when she goes in because she goes more than once due to her pain" of so when she does go in to ER the ER staff can help her and assist her appropriat kirill because every time she goes to the ER the ER doctors think she is just coming in a drug seeker". Handy avitia states Dr. Sanchez was going to write a letter about a care plan or care of action whe n those does happened on what the steps are to her PCP Justo and her and she would like the se steps sent to her via [employer] if possible. Electronically signed by Paulina Alcala at 2017 8:48 AM PDTdocumented in this encounter Plan of Treatment Not on filedocumented as of this encounter Visit Diagnoses Not on filedocumented in this encounter
--- OUTSIDE RECORDS SUMMARY | ~2020-08-23 | XMS | Encounter Summary ---
Demographics + + + | Address | [address] | | | [place] [address] | + + + | Home Phone [...] + + + | Author | [facility] | + + + | Organization | [facility] | + + + | Address | Unknown | + + + | Phone | Unavailable | + + + Support + + +---------+ + | Name | Relationship | Address | Phone | + + +---------+ + | Patricia Colin | ECON | Unknown | | + + +---------+ + Care Team Providers + +------+ + | Care Poultry Dresser Name | Role | Phone | + +------+ + | Justo Vazquez MD | PCP | | + +------+ + Reason for Visit + +--------+ + | Reason | Onset | Comments | | | Date | | + +--------+ + | Lab Order | 07/14/ | | | | 2016 | | + +--------+ + Encounter Details +--------+ + + + + | Date | Type | Department | Care Team | Description | +--------+ + + + + | 07/14/ | Telephone | [facility] | Ilene Bright, | Lab Order | | 2017 | | Pain Center at | SIMPLEX OPERATOR [address] | | | | | [facility] | [place], [place] | | | | | [address] | [address] | | | | | [facility] | [phone] | | | | | and Healing, | | | | | | Building | | | | | | Floor [place], [place] | | | | | | [address] | | | | | | [phone] | | | +--------+ + + + [...] this encounter Miscellaneous Notes Telephone Encounter - Ilene Bright FNP - 07/14/2017 11:[address] Gaspar regarding Tracie's concern/request for possible food allergy testing. Thinks gluten may be a trigger t o her abdominal pain and vomiting. Dr. Gaspar is currently out of the office, I spoke with the covering provider, who ordered TTG IGA and Total IGA. I placed the orders with the lab closest to Tracie in [place]. I also r elayed this message to Tracie. Results will be faxed to [facility]. Ilene Childs DNP, SIMPLEX OPERATOR-C [facility] [address] [place] [id number] documented in this e ncounter Plan of Treatment Not on filedocumented as of this encounter Visit Diagnoses + + | Diagnosis | + + | Pain of upper abdomen - Primary Abdominal pain, other specified site | + + | Irritable bowel syndrome with constipation Irritable bowel syndrome | + + | Intractable cyclical vomiting with nausea | + + documented in this encounter"
--- OUTSIDE RECORDS SUMMARY | ~2020-08-23 | XMS | Encounter Summary ---
Demographics + + + | Address | [address] | | | [place] [address] | + + + | Home Phone [...] + + | Author | [facility] | + + + | Organization | [facility] | + + + | Address | Unknown | + + + | Phone | Unavailable | + + + Support + + +---------+ + | Name | Relationship | Address | Phone | + + +---------+ + | Patricia Colin | ECON | Unknown | | + + +---------+ + Care Team Providers + +------+ + | Care Gear Shaper Name | Role | Phone | + +------+ + | Justo Vazquez MD | PCP | | + +------+ + Encounter Details +--------+ + + + + | Date | Type | Department | Care Team | Description | +--------+ + + + + | 04/23/ | Anesthesia | Pain Center at [facility] | Aleta Rebollar MD [address] | | | 2019 | Event | [address] | [address] | | | | | [facility] | [place], [place] | | | | | and Healing, | [address] | | | | | | [phone] | | | | | Floor [place], [place] | | | | | | [address] | | | | | | [phone] | | | +--------+ + + + + Anesthesia Record + + + + + | Procedure Name | Responsible | Anesthesia Start | Anesthesia Stop Time | | | Anesthesiologist | Time | | + + + + + | OFFICE VISIT | | | | + + + + + + + | No events on file. | + + +------+ | Meds | +------+ + + + No medications | on file. | + + + + + | No agents on file. | + + + + | No blood administrations on file. | + + + + | No LDAs on file. | + + documented in this encounter Social History + [...]
--- OUTSIDE RECORDS SUMMARY | ~2020-08-23 | XMS | Encounter Summary ---
Demographics + + + | Address | [address] | | | [place] [address] | + + + | Home Phone | | + + + | Preferred Language | Unknown | + + + | Marital Status | Single | + + + | Rastafari Affiliation | FMD | + + + | Race | White | + + + | Ethnic Group | Not or | + + + Author + + + | Author | [facility] | + + + | Organization | [facility] | + + + | Address | Unknown | + + + | Phone | Unavailable | + + + Support + + +---------+ + | Name | Relationship | Address | Phone | + + +---------+ + | Patricia Colin | ECON | Unknown | | + + +---------+ + Care Team Providers + +------+ + | Care Deicer Repairer Name | Role | Phone | + [...] 06/26/ | Documentati | [facility] | Dale Cantu, | Pre-operative | | 2011 | on | Pain Center at | [address] [facility] | evaluation (No | | | | [facility] | [facility] [id number] | evidence of drug | | | | [address] | [place], [place] | abuse) | | | | [facility] | [address] | | | | | and Healing, | [phone] | | | | | [facility] | | | | | | Floor [place], [place] | | | | | | [address] | | | | | | [phone] | | | +--------+ + + + [...] this encounter Miscellaneous Notes Telephone Encounter - Dale Cantu MD - 06/26/2012 8:06 AM PDTMs. Farah does not chowdhury ve any untreated existing drug addiction problems. I base this statement upon my history and physical, follow up visits, the psychology evalu ation dated 02/29/2012, review of Ms. Farah's outside medical records, and the [facility] pain questionnaire. DALE CANTU MD Machine Bender, [facility] Wood Shop Teacher, Pain Medicine Professor, Anesthesiology & Perioperative Medicine documented in this en counter Plan of Treatment Not on filedocumented as of this encounter Visit Diagnoses Not on filedocumented in this encounter"
--- OUTSIDE RECORDS SUMMARY | ~2020-08-23 | XMS | Encounter Summary ---
Demographics + + + | Address | [address] | | | [place] [address] | + + + | Home Phone [...] Author + + + | Author | [facility] | + + + | Organization | [facility] | + + + | Address | Unknown | + + + | Phone | Unavailable | + + + Support + + +---------+ + | Name | Relationship | Address | Phone | + + +---------+ + | Patricia Colin | ECON | Unknown | | + + +---------+ + Care Team Providers + +------+ + | Care Nurse Educator Name | Role | Phone | + +------+ + | Allegra Chaudhary | PCP | | + +------+ + Encounter Details +--------+ + + + + | Date | Type | Department | Care Team | Description | +--------+ + + + + | 10/20/ | Document-Sc | UNKNOWN DEPARTMENT | Unknown . | | | 2014 | anned | [address] | | | | | | [address] | | | | | | [place], [place] | | | | | | [address] | | | +--------+ + + + [...] + + + | RADIOLOGY | | 10/20/2015 | | Results for this | | | | 12:00 AM | | procedure are in the | | | | PST | | results section. | + +--------+ + + + documented in this encounter Results RADIOLOGY (10/20/2015 12:00 AM PST) + + + | Narrative | Performed At | + + + | | | + + + documented in this encounter Visit Diagnoses Not on filedocumented in this encounter"
--- OUTSIDE RECORDS SUMMARY | ~2020-08-23 | XMS | Encounter Summary ---
Demographics + + + | Address | [address] | | | [place] [address] | + + + | Home Phone | | + + + | Preferred Language | Unknown | + + + | Marital Status | Single | + + + | Hinduism Affiliation | FMD | + + + [...] Team Providers + +------+ + | Care Senior Oracle Developer Name | Role | Phone | + +------+ + | Justo Vazquez MD | PCP | | + +------+ + Encounter Details +--------+ + + + + | Date | Type | Department | Care Team | Description | +--------+ + + + + | 12/27/ | Ancillary | [facility] | Alex Sanchez, | | | 2018 | Orders | Pain Center at | ,PhD [address] | | | | | [facility] | [address] | | | | | [address] | [place], [place] | | | | | [place] for [facility] | [address] | | | | | and Healing, | [phone] | | | | | | | | | | | Floor [place], [place] | | | | | | [address] | | | | | | [phone] | | | +--------+ + + + [...] left lower extremity | + + | Muscle pain Mylagia and myositis, unspecified | + + documented in this encounter"
--- OUTSIDE RECORDS SUMMARY | ~2020-08-23 | XMS | Encounter Summary ---
Demographics + + + | Address | [address] | | | [place] [address] | + + + | Home Phone [...] Team Providers + +------+ + | Care Applications Sales Consultant Name | Role | Phone | + +------+ + | Justo Vazquez MD | PCP | | + +------+ + Reason for Visit + +--------+ + | Reason | Onset | Comments | | | Date | | + +--------+ + | Follow-up Plan | 01/13/ | ortho question | | | 2018 | | + +--------+ + Encounter Details +--------+ + + + + | Date | Type | Department | Care Team | Description | +--------+ + + + + | 01/13/ | Telephone | [facility] [place] | Alex Sanchez, | Follow-up Plan | | 2018 | | Pain Center at | ,PhD [address] | (ortho question) | | | | [facility] | [facility] | | | | | [address] | [place], [place] | | | | | [facility] | [address] | | | | | and Healing, | [phone] | | | | | Building | | | | | | Floor [place], [place] | | | | | | [address] | | | | | | [phone] | | | +--------+ + + + [...] Telephone Encounter - Holly Edouard MA - 01/13/2018 3:56 PM PSTCould you please fax her C clinic notes and most recent imaging (X-ray and bone scan reports) to [phone]? Thanks. 01/13 @ 9575, faxed recent chart note and ankle imaging to above fax #. MB RMA elephone Encounter - Holly Edouard MA - 01/13/2018 2:[address] Sanchez, can patient see her previous ortho?Elect ronically signed by Holly Edouard MA at 01/13/2018 2:41 PM PSTTelephone Encounter - Brendan Edmondson hloe - 01/13/2018 1:52 PM PST Reason for Call: No chief complaint on file. Patient: Tracie Farah Contact Information: Home Phone Work Phone Message: Description of reason for call: patient called and states that the Orthopedics office in [facility] that Daniel referred her to is booked out until February and she would like to know if Emma gomez thinks she should and could go to her Orthopedic doctor that has done previous surgeries on her before could see her for the same thing [facility] would because they can get her in a lot sooner. Provider is Clifton Holley at [facility] in [facility] and his phone number is [phone]. Patient would like to discuss this with Daniel to see if this is a good option or not Last Encounter with [facility]: Last Appointment in [facility] was on 01/12/18 [id number] 1:53 pm with Alex Sanchez MD,P hD. Medication (clarify sig on Ketamine). Future Appointments: No future appointments scheduled in Pain Management. Patient's Preferred Pharmacy: Pharmacy Preferences: [facility] [address] [place] [address] Hours: 8am-9pm Mon-fri; 9-5:30pm Sat-sun E-Prescribing: Yes E-Prescribing Control Substances: Yes [facility] [facility] [address] [facility] [place] [address] Hours: 9am-9pm Mon-fri / 9am-7pm Sat / 10am-6pm Sun E-Prescribing: Yes E-Prescribing Control Substances: Yes [facility] #[id number] [address] [place] [address] Hours: 9am-7pm Mon-fri / 9am-6pm Sat / 10am-5pm Sun E-Prescribing: Yes E-Prescribing Control Substances: Yes documented in this encounter Plan of Treatment Not on filedocumented as of this encounter Visit Diagnoses Not on filedocumented in this encounter"
--- OUTSIDE RECORDS SUMMARY | ~2020-08-23 | XMS | Encounter Summary ---
Demographics + + + | Address | [address] | | | [place] [address] | + + + | Home Phone | | + + + | Preferred Language | Unknown | + + + | Marital Status | Single | + + + | Orthodox Affiliation | FMD | + + [...] Team Providers + +------+ + | Care Instructional Systems Design Consultant Name | Role | Phone | [...] | Diagnoses | [place]ulah | Edu Pt Manager Pediatric | | | | Therapy | CRPS | Janak Martinez MD | [facility] [address] | | | | | (complex | [address] | | | | | regional | [address] | Mailcode: | | | | | pain | Mailstop | [facility] | | | | | syndrome), | [id number] | for Health | | | | | lower limb | [place], [place] | and Healing, | | | | | Gait | [address] | [address] | | | | | disturbance | Phone: | [place], [place] | | | | | Muscle pain | [phone] | [address] | | | | | Procedures | Fax: | Phone: | | | | | PHYSICAL | [phone] | [phone] | | | | | THERAPY | [...] | | | | [place] | [place] [address] | syndrome), lower | | | | [address] | [phone] | limb (Primary Dx) | | | | [facility] | | | | | | and Healing, | | | | | | Building 1, | | | | | | Floor [place], [place] | | | | | | [address] | | | | | | [phone] | | | +--------+---------+ + + + [...] Patient Instructions Guillermo Sanon I, PT - 05/03/2012 3:14 PM PDT documented in this encounter Progress Notes Guillermo Sanon I, PT - 05/03/2012 3:08 PM PDTFormatting of this note might be different f rom the original. [id number] BRODY FARAH Date of : 1990 Start of care: 02/14/2012 Date of onset: 02/14/2012 Referring/Attending Practitioner: Janak Riojas MD . Primary/Referral Diagnosis/ICD-9: 355.71B CRPS (complex regional pain syndrome), lower limb Insurance: Payor: [facility] Plan: [facility] OUT OF STATE Product Type: PP O Service period from: 02/14/2012 to: 08/12/2012 Number visits used/authorized: 12/26 [facility] PHYSICAL THERAPY PROGRESS NOTE SUBJECTIVE: Age: 21 y.o. Sex: female Chief complaint: No chief complaint on file. 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 She is doing much better ov eralexi, possibly because she finished school and so has less stress. She stopped using crutch es in early April (18 days ago) which is less stressful. Now she is working at [employer] 2-3 hours per week, and spends a [...] sometimes pain meds. Social History: lives in [facility], 22 years old, not working currently, [...] or concerns about therapy: she lives in [place]. She is r equesting family members [...] change in their status. Guillermo Sanon MSPT [facility] Outpatient Rehabilitation Services Mailcode: [facility] [address] [facility] [place] [facility] [address] documented in this encounter Plan of Treatment Not on filedocumented as of this encounter Procedures + +--------+ + + + | Procedure Name | Priori | Date/Time | Associated Diagnosis | Comments | | | ty | | | | + +--------+ + + + | [facility] THERAPEUTIC | Routin | 05/03/2012 | CRPS [...]
--- OUTSIDE RECORDS SUMMARY | ~2020-08-23 | XMS | Encounter Summary ---
Demographics + + + | Address | [address] | | | [place] [address] | + + + | Home Phone [...] Team Providers + +------+ + | Care Fine Craft Artist Name | Role | Phone | + +------+ + | Justo Vazquez MD | PCP | | + +------+ + Reason for Visit + +--------+ + | Reason | Onset | Comments | | | Date | | + +--------+ + | Medication | 01/12/ | clarify sig on Ketamine | | | 2017 | | + +--------+ + Encounter Details +--------+ + + + + | Date | Type | Department | Care Team | Description | +--------+ + + + + | 01/12/ | Telephone | [facility] | Alex Sanchez, | Medication (clarify | | 2018 | | Pain Center at | ,PhD [address] | sig on Ketamine) | | | | [facility] | [facility] | | | | | [address] | [place], [place] | | | | | [facility] | [address] | | | | | and Healing, | [phone] | | | | | | | | | | | Floor [place], [place] | | | | | | [address] | | | | | | [phone] | | | +--------+ + + + [...] Telephone Encounter - Holly Edouard MA - 01/24/2018 3:[address] Daniel gore clarify sig elephone Tracie Gonzalez - 01/24/2018 10:03 AM PDTFormatting of this note might be differen t from the original. Reason for Call: Medication - clarify sig on Ketamine Patient: Tracie Donaldson Sofi Contact Information: Home Phone Work Phone Message: Description of reason for call: Patient called to check on this as [facility] has still not gotten clarification. Per previous messages, they need to know the quant ity and how many refills the Rx is for. Patient has been waiting a couple of weeks for donis fication so please expedite this if possible. Last Encounter with [facility]: Last Appointment in [facility] was on 01/13/18 [id number] 10:03 am with Alex Sanchez MD,P hD. Follow-up Plan (ortho question). Future Appointments: No future appointments scheduled in Pain Management. Patient's Preferred Pharmacy: Pharmacy Preferences: [facility] [address] [place] [address] Hours: 8am-9pm Mon-fri; 9-5:30pm Sat-sun E-Prescribing: Yes E-Prescribing Control Substances: Yes [facility] [facility] [address] [place] [address] Hours: 9am-9pm Mon-fri / 9am-7pm Sat / 10am-6pm Sun E-Prescribing: Yes E-Prescribing Control Substances: Yes [facility][id number] [address] [place] [address] Hours: 9am-7pm Mon-fri / 9am-6pm Sat / 10am-5pm Sun E-Prescribing: Yes E-Prescribing Control Substances: Yes elephone Encounter - Holly Welsh MA - 01/12/2018 2:39 PM PST3/1 @ 1438, called Lobito back at pharmacy. He needs clarification on the sig and a quantity. Is this a medication that she will be using every d ay and need a 30 day supply? MB RMA Forwarded to Dr. Sanchez to clarify elephone Encounter - Tracie Olivas - 01/12/2018 2:17 PM PST Reason for Call: No chief complaint on file. Patient: Tracie Farah Contact Information: Home Phone Work Phone Message: Description of reason for call: Lobito from [facility] called requesting clarification on ketamine Rx for this patient. The patient is currently waiting at the [facility] so please expedite this if possible. Any pharmacist can take the information Last Encounter with [facility]: Last Appointment in [facility] was on 01/11/18 [id number] 2:17 pm with Alex Sanchez MD,P hD. Referral To Orthopedics (discuss ortho appointment). Future Appointments: No future appointments scheduled in Pain Management. Patient's Preferred Pharmacy: Pharmacy Preferences: [facility] [address] [place] [address] Hours: 8am-9pm Mon-fri; 9-5:30pm Sat-sun E-Prescribing: Yes E-Prescribing Control Substances: Yes [facility] [facility] [address] [facility] [place] [address] Hours: 9am-9pm Mon-fri / 9am-7pm Sat / 10am-6pm Sun E-Prescribing: Yes E-Prescribing Control Substances: Yes [id number] [address] [place] [address] Hours: 9am-7pm Mon-fri / 9am-6pm Sat / 10am-5pm Sun E-Prescribing: Yes E-Prescribing Control Substances: Yes documented in this encount er Plan of Treatment Not on filedocumented as of this encounter Visit Diagnoses Not on filedocumented in this encounter"
--- OUTSIDE RECORDS SUMMARY | ~2020-08-23 | XMS | Encounter Summary ---
Demographics + + + | Address | [address] | | | [place] [address] | + + + | Home Phone [...] Author + + + | Author | [facility] | + + + | Organization | [facility] | + + + | Address | Unknown | + + + | Phone | Unavailable | + + + Support + + +---------+ + | Name | Relationship | Address | Phone | + + +---------+ + | Patricia Colin | ECON | Unknown | | + + +---------+ + Care Team Providers + +------+ + | Care Youth Nutritional Monitor Name | Role | Phone | + [...] Visit | Medicine Clinic at | R, OUTSIDE PLANT CABLE ENGINEER [address] [facility] | (Primary Dx); | | | | [facility] | [address] | Complex regional | | | | [address] | [place], [place] | pain syndrome type 1 | | | | [facility] | [address] | of left lower | | | | and Healing, | [phone] | extremity; Cyclic | | | | Building 2 | | vomiting syndrome, | | | | [place], [place] | | intractability of | | | | [address] | | vomiting not | | | | [phone] | | specified, presence | | | [...] Port/P | Right; Chest portacath | 03/18/17 9780 by | | | [place] | | [...] sit, stand or walk. Surgery check-in location: [facility], 4th floor Surgery Check in Time: The [...] it is after office hours, call the [facility] pneumatic system conveyor operator at [phone] and ask them to page him or h er. documented in this encounter Progress Notes Catie Smart NP - 11/27/2018 2:05 PM PST PREOPERATIVE CONSULT NOTE Author: Catie Smart NP Referring Physician: Alex Sanchez MD Primary Care Provider: Justo Vazquez MD Reason for Consult: Preoperative evaluation and risk assessment Proposed Procedure/Date: implant SCS; 12/05/2018 Proposed Procedure Location: [facility] HISTORY OF PRESENT ILLNESS: Tracie Farah is [...] renal failure no electrolyte abnormalities no dialysis Urology/Fire Extinguisher Technician: Interstitial cystitis LMP: irreg bleeding, ~11/14/2018, IUD [...] oral recon soln Take as directed by [facility]- 2 gallon bowel prep polyethylene glycol 17 [...] A1C EKG: Not needed Perioperative risk calculators 2014 ACC/AHA Perioperative Cardiac Risk Stratification (assumes non-emergent, [...] patient is a lso currently scheduled at [facility] [place] and is meeting inclusion criteria for [...] to this patient's care. Catie Smart NP [facility] PBB PREOPERATIVE MEDICINE CLINIC AT [facility] 4TH FLOOR [address] [facility] [address] I advised the patient regarding NPO [...]
--- OUTSIDE RECORDS SUMMARY | ~2020-08-23 | XMS | Encounter Summary ---
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 | | | | Therapy | CRPS | Janak Martinez MD | [facility] [address] | | | | | (complex | [address] | | | | | regional | [address] | Mailcode: | | | | | pain | Mailstop | [facility] | | | | | syndrome), | [id number] | for Health | | | | | lower limb | [place], [place] | and Healing, | | | | | Gait | [address] | [address] | | | | | disturbance | Phone: | [place], [place] | | | | | Muscle pain | [phone] | [address] | | | | | Procedures | Fax: | Phone: | | | | | PHYSICAL | [phone] | [phone] | | | | | THERAPY | | | | | | | REFERRAL | | | +--------+--------+ + + + + Encounter Details +--------+---------+ + + + | Date | Type | Department | Care Team | Description | +--------+---------+ + + + | 05/24/ | Office | [facility] | Guillermo Sanon I, | CRPS (complex | | 2011 | Visit | Therapy Services at | PT [address] | regional pain | | | | [place] | [place] [address] | syndrome), lower | | | | [address] | [phone] | limb (Primary Dx) | | | | [place] for [facility] | | | | | | and Healing, | Pt, Edu Priority | | | | | Building [address], [address]st | [address] | | | | | Floor [place], [place] | [place], [place] | | | | | [address] | [address] | | | | | [phone] | | | +--------+---------+ + + + [...] Progress Notes Guillermo Sanon I, PT - 05/24/2012 3:28 PM PDTFormatting of this note might be different f rom the original. [id number] BRODY FARAH Date of : 1990 Start of care: 02/14/2012 Date of onset: 02/14/2012 Referring/Attending Practitioner: Janak Riojas MD . Primary/Referral Diagnosis/ICD-9: 355.71B CRPS (complex regional pain syndrome), lower limb Insurance: Payor: [facility] [employer] [facility] Plan: BCBS OUT OF STATE Product Type: PP O Service period from: 02/14/2012 to: 08/12/2012 Number visits used/authorized: 02/23 [facility] PHYSICAL THERAPY PROGRESS NOTE SUBJECTIVE: Age: 21 y.o. Sex: female Chief complaint: No chief complaint on file. Current: pt is doing neck and core exercises. She is trying to do the desensitization as mu ch as she can. She was OK post last treatment but has had two bad weeks possibly because she is working more, and/or because it is very hot where she lives. She worked 15 hours last we and is scheduled for 19 hours this week. She wants to improve her whole body [...] Riojas today already. Pain rating at present: 06/23 Symptoms are aggravated by: waking up in [...] 4", L 0" Neuro Screen UE Neuro: 05/24/2012 Segmental Shoulder Strength Right Left Impact test C4 Shoulder Shrug 5 5 negative C5,6 Shoulder ER/IR, Elbow flexion 5 5 negative C6 Wrist extension- radial dev 5 5 negative C7 Wrist extension- Ulnar dev 5 5 negative C6,7,8 Elbow extension 5 5 negative C7 Wrist flexion 5 5 negative C8, T1 Thumb adduction (Ulnar) , Opposition (median) 4 4 negative T1 4 4 negative Baselines Activity 05/24/2012 05/10/2012 05/03/2012 Walk without crutches 11/17 mile 11/17 mile unilateral rows 7.5 x 5 scaption 1# 1x15 0# to fatigue amb with body weight support treadmill 13 minutes 30%support 1.2 mph Treatment provided: Discussed Static cervical isometerics in four directions 10 x10 and Segmental Lower trunk r otation scaption per baseline table unilateral Rows yellow theraband 3x15 R and L body weight support treadmill per baseline table Hip flexor and calf stretching wiith body weight support Home exercises: Static cervical isometerics in four directions 10 x10 Segmental Lower trunk rotation Shoulder scaption 1# unilateral Low rows yellow theraband. Desensitization program starting with cotton balls Palmar grasp inhibition Walking as tolerated. Treatment began: 1530hrs Treatment ended: 1630hrs Manual therapy: 0min Therapeutic exercise: 60 min ASSESSMENT: pt did well today. No shaking. I need to speak with Dr Riojas regarding what he wants her to be able to do prior to trialing her with a spinal cord stimulator. Date Goals Time Frame Status 05/03/2012 Independent [...] change in their status. Guillermo Sanon MSPT [facility] Outpatient Rehabilitation Services Mailcode: [facility] [address] [facility], [address] [place] [phone] documented in this encounter Plan of Treatment Not on filedocumented as of this encounter Procedures + +--------+ + + + | Procedure Name | Priori | Date/Time | Associated Diagnosis | Comments | | | ty | | | | + +--------+ + + + | IA THERAPEUTIC | Routin | 05/24/2012 | CRPS (complex | | | EXERCISES | e | 6:23 PM | regional pain | | | | | PDT | syndrome), lower | | | | | | limb | | + +--------+ + + + | IA THERAPEUTIC | Routin | 05/24/2012 | CRPS (complex | | | EXERCISES | e | 6:23 PM | regional pain | | | [...]
--- OUTSIDE RECORDS SUMMARY | ~2020-08-23 | XMS | Encounter Summary ---
Demographics + + + | Address | [address] | | | [place] [address] | + + + | Home Phone [...] Team Providers + +------+ + | Care Abstractor Name | Role | Phone | + +------+ + | Justo Vazquez MD | PCP | | + +------+ + Encounter Details +--------+ + + + + | Date | Type | Department | Care Team | Description | +--------+ + + + + | 02/07/ | MyChart | Digestive Health | Kenny Gaspar MD | MR enterography | | 2016 | Encounter | Center at [facility] [address] | | results | | | | [address] [facility] | | | | | | for Health and | | | | | | Healing, [address] | | | | | | [place], [place] | | | | | | [address] | | | | | | [phone] | | | +--------+ + + + [...]
--- OUTSIDE RECORDS SUMMARY | ~2020-08-23 | XMS | Encounter Summary ---
Demographics + + + | Address | [address] | | | [place] [address] | + + + | Home Phone | | + + + | Preferred Language | Unknown | + + + | Marital Status | Single | + + + | Roman Catholic Affiliation | 1073 | + + + | Race | White | + + + | Ethnic Group | Not or | + + + Author + + + | Author | [facility] | | | and [place] | + + + | Organization | [facility] | | [...] [place] | | | | | [address] | | + + + + + | Bryatn Farah | ECON | Unknown | | + + + + + Care Team Providers + +------+ + | Care Electric Motor Repairer Name | Role | Phone | + +------+ + PCP | Unavailable | + +------+ + Encounter Details +--------+ + + + + | Date | Type | Department | Care Team | Description | +--------+ + + + + | 03/16/ | Hospital | [facility] | Conversion | Back pain | | 2012 | Encounter | CONVERSION [address] | Transaction, | | | | | [address] | Provider Unknown | | | | | [place], [place] | [phone] | | | | | [address] | | | | | | [phone] | | | +--------+ + + + [...] + +--------+ + + + | XR THORACIC SPINE 3 | Routin | 03/15/2013 | | Results for this | | VW | e | 1:23 PM | | procedure are in the | | | | PDT | | results section. | + +--------+ + + + documented in this encounter Results XR Thoracic Spine 3 Vw (03/15/2013 1:23 PM PDT) + [...]
--- OUTSIDE RECORDS SUMMARY | ~2020-08-23 | XMS | Encounter Summary ---
Demographics + + + | Address | [address] | | | [place] [address] | + + + | Home Phone [...] Team Providers + +------+ + | Care Script Manager Name | Role | Phone | + +------+ + | Justo Vazquez MD | PCP | | + +------+ + Encounter Details +--------+ + + + + | Date | Type | Department | Care Team | Description | +--------+ + + + + | 01/09/ | Documentati | Orthopaedics | Ranjeet Amanda, | | | 2018 | on | [facility] at [facility] | [address] | | | | | for Health and | [place], [place] | | | | | Healing [address] | [address] | | | | | Ave [facility] for | [phone] | | | | | Health and Healing, | | | | | | | | | | | | Floor [facility] [place] | | | | | | [address] | | | | | | [phone] | | | +--------+ + + + [...]
--- OUTSIDE RECORDS SUMMARY | ~2020-08-23 | XMS | Encounter Summary ---
Demographics + + + | Address | [address] | | | [place] [address] | + + + | Home Phone [...] Author + + + | Author | [facility] | + + + | Organization | [facility] | + + + | Address | Unknown | + + + | Phone | Unavailable | + + + Support + + +---------+ + | Name | Relationship | Address | Phone | + + +---------+ + | Patricia Colin | ECON | Unknown | | + + +---------+ + Care Team Providers + +------+ + | Care Chemistry Faculty Member Name | Role | Phone | + [...] + + + + | 12/05/ | Hospital | [facility] | Alex Sanchez, | | | 2019 | Encounter | STAY [address] | ,PhD [address] [facility] | | | | | [place] Mailcode: [facility] | [address]ano | | | | | [facility] | [place], [place] | | | | | Health and [facility], | [address] | | | | | [place] [address] | [phone] | | | | | [place], [place] | | | | | | [address] | | | | | | [phone] | | | +--------+ + + + [...] Kike Ribeiro RN - 12/05/2018 Nursing Disc tj Instructions General discharge instructions for same-day procedure [...] s/p successful DRG trial lead system with [employer] System on 09/25/2018. No changes in H&P, plan to proceed with DRG lead and IPG implantation. Aleta Rebollar MD Pain Fellow documented in t his encounter Procedure Notes Alex Sanchez MD,PhD - 12/05/2018 12:52 PM PSTAssociated Order(s): INSERTION OF PERMAN ENT SPINAL CORD STIMULATORProcedure(s): INSERTION OF PERMANENT SPINAL CORD STIMULATORPre-Pro cedure Diagnose(s): Complex regional pain syndrome type 1 of left lower extremityPost-Proced ure Diagnose(s): Complex regional pain syndrome i of left lower limbPROVIDER OPERATIVE NOTE Date: December 05, 2018 Location: [facility] [place] Tracie Farah [id number] :1990, presents to clinic for: Dorsal root ganglion stimulator implant PROCEDURE: Dorsal root ganglion stimulator implant PRE-OPERATIVE DIAGNOSIS: Complex regional Pain syndrome type 1 of left lower extremity POST-OPERATIVE DIAGNOSIS: Complex regional Pain syndrome type 1 of left lower extremity ATTENDING PHYSICIAN: Alex Sanchez PUBLIC BATH ATTENDANT: Arben Valerio MD ANESTHESIA: sedation by IVIS Morales, supervised by transportation department head Ilir morley FINDINGS: Appropriate spread of IV contrast in the location of the stellate ganglia without vascular or epidural uptake. IV Fluids: per anesthesia record Estimated Blood Loss: minimal Drains, Specimens, Complications: None INDICATIONS: Tracie Farah has a history of Complex regional Pain syndrome type 1 of left lower extremity. I reviewed the Registered Nurse's pre-sedation report and agree to the plan. The patient wa s deemed an appropriate candidate to undergo the planned procedure. ASA Physical Status 2. PROCEDURE IN DETAIL: Prior to the procedure, I had a PARQ discussion with Tracie Farah, and she gave wr itten consent for procedure and sedation. Ms. Farah was escorted to the [facility] [place], where sh e was positioned Prone on the examination table. TEAM PAUSE: The physician-led pause was conducted, and is documented in the Nursing note. Monitors were placed, including ECG, NIBP and SpO2. The skin was prepared with Chloroprep a nd sterile drapes were applied. The patient was positioned supine, and the L4 and L5 vertebral bodies were identified in th e AP view. DESCRIPTION: DUAL LEAD ARRANGEMENT (2 LEADS) , 4 CONTACT LEAD LEFT L4 PLACEMENT FOR SPINAL MODULATION OF DRG AT L4 LEFT L5 PLACEMENT FOR SPINAL MODULATION OF DRG AT L5 2 PREPACKAGED SHEATHS WERE USED TO AID IN PLACEMENT OF THE 2 LEADS OPERATIVE PROCEDURE: Pt was brought to the operating room and was placed in the prone position. Pt was then prepped and draped in the usual sterile fashion with DURAPREP AND CHLORHEXIDINE . A pocket site was identified just above the right iliac crest. Local anesthetic consisting of a 50:50 mixture of 2% Lidocaine and 1 : 200,000 epinephrine and bupivacaine 0.5% was admi nistered in the region and a 5 centimeter incision was made. A subcutaneous pocket was then created with a blunt dissection technique and electrocautery for placement of the [employer] implantable pulse generator. With fluoroscopic guidance the location of the desired site for placement of the percutaneo us leads was identified (the target being left L4 neuroforamen) and local anesthetic was inj ected subcutaneously over the area. A 25G spinal needle was used to infiltrate the path of t he Tuohy needle. A right para-median, antegrade approach using a 14G Tuohy needle was used, aiming the tip o f the needle to midline of the interlaminar window of the L4/L5 space. The needle tip was al so directed to aim towards the left L4 foramen. Then loss of resistance to air technique was used to enter the epidural space with negative aspiration for blood or CSF. The lead was th en loaded onto a prepacked sheath which was reintroduced through the needle. The sheath and the lead were advanced towards the superior part of the left L4 foramen, under the left L4 p edicle where the DRG - Dorsal Root Ganglion - for that level resides. The lead was introduce d about 2 cm outside the foramen to make sure the path was free of any obstruction . Resista nce was not encountered. The lead was introduced so as to have at least 2 contacts placed un paige the pedicle, between the medial and lateral borders of the pedicle. Once the correct eva cement of the lead was confirmed by repeated fluroscopic images in AP and lateral (to ensure dorsal placement) the sheath was withdrawn to the tip of the needle making sure the lead di d not migrate during the withdrawal. Holding the sheath back , the part of the lead in the e pidural space was advanced in such a way as to move the contact placement however to create a superior strain relief loop of the lead wire above the level of the foramen to the level o f the disc above. A similar strain relief loop was created inferior to the loop. These loops provide the stability of the lead in a figure of eight fashion to prevent any lead migratio n. The procedure was repeated from the right side one level down to access the left L5 neurofo ramen. A right para-median, antegrade approach using a 14G Tuohy needle was used, aiming the tip of the needle to midline of the interlaminar window of the L5/S1 space. The needle tip was also directed to aim towards the left L5 foramen. Then loss of resistance to air techniq ue was used to enter the epidural space with negative aspiration for blood or CSF. The lead was then loaded onto a prepacked sheath which was reintroduced through the needle. The sheat h and the lead were advanced towards the superior part of the left L5 foramen, under the lef t L5 pedicle where the DRG - Dorsal Root Ganglion - for that level resides. The lead was int roduced about 2 cm outside the foramen to make sure the path was free of any obstruction. Re sistance was not encountered. The lead was introduced so as to have at least 2 contacts plac ed under the pedicle, between the medial and lateral borders of the pedicle. Once the correc t placement of the lead was confirmed by repeated fluroscopic images in AP and lateral (to e nsure dorsal placement) the sheath was withdrawn to the tip of the needle making sure the le ad did not migrate during the withdrawal. Holding the sheath back , the part of the lead in the epidural space was advanced in such a way as to move the contact placement however to cr eate a superior strain relief loop of the lead wire above the level of the foramen to the le jackson of the disc above. A similar strain relief loop was created inferior to the loop. These loops provide the stability of the lead in a figure of eight fashion to prevent any lead negra ration. The screen cable connectors were then joined to the leads and the screen cables were then connected to the [employer] financial sales representative. A test stimulation was performed and once we ensured adequate coverage of the painful areas. The sheath was withdrawn in the needle. The sheaths were taken out of the needles, followed by the needle and the stylet out of the lead, in that order under short live fluoroscopy ensuring no migration of the lead . An approximately 1.5 cm longitudinal incision was made at each needle site. The incision wa s dissected down to the subcutaneous space. Hemostasis was established and local anesthetic was delivered at the tunneling sites subcutaneously. The leads were tunneled from the inferi or most incision to the superior incision and then to the generator pocket using the tunneli ng tool. The leads were then inserted into the implantable pulse generator and the screws we re tightened with the hex wrench. The generator was then introduced into the pocket and rajendra te tested to ensure adequate placement of the leads into the IPG. Surgical wounds were then irrigated with antibiotic solution and vancomycin powder was placed in the wounds and massag ed in the tissues. The wounds were closed with #3-0 Polysorb sutures in two layers. The smal ler needle wounds were closed with a single layer of #3-0 Polysorb. The skin was closed with V-Loc sutures and Dermabond was applied generously. No specimens collected. The patient had additional programming in the recovery room and he was provided with alex hensnelia instructions for post op care. A oxycodone and promethazine prescription was provided for post procedural pain and nausea. Ms. Farah was transported to the PACU where she made an uneventful recovery. Images were saved, and sent to [facility]. Alex Sanchez (attending) was present for the entire procedure. Arben Valerio MD I was present for the entire procedure (spinal cord stimulator implantation with DRG leads at left L4 and L5) and all bocanegra elements of this visit. I reviewed the documentation of the other [facility] providers and concur with Dr. Valerio's findings. I edited his note. Alex Sanchez MD,PhD Design And Sales Consultant Anesthesiology and Pain Management [facility] documented in t his encounter Plan of [...] OPERATIVE NOTE Date: December 05, 2018 Location: [facility] [place] | | | Tracie Farah [id number] :1990, presents to clinic | | | for: Dorsal root ganglion stimulator implant PROCEDURE: Dorsal | | | root ganglion stimulator implant PRE-OPERATIVE DIAGNOSIS: Complex | | | regional Pain syndrome type 1 of left lower extremity | | | POST-OPERATIVE DIAGNOSIS: Complex regional Pain syndrome type 1 of | | | left lower extremity ATTENDING PHYSICIAN: Alex Sanchez | | | PUBLIC BATH ATTENDANT: Arben Valerio MD ANESTHESIA: sedation by IVIS Cole | | | Carmen, supervised by transportation department head Ilir Valdes. | | | FINDINGS: Appropriate [...] sedation. Ms. Farah was escorted to the [facility] | | | [place], where she [...] of the [employer] | | | [employer] implantable pulse generator. With fluoroscopic | | [...] to the | | | [employer] financial sales representative. A test stimulation was performed and [...] recovery. Images were saved, and sent to [employer]. | | | Alex Sanchez (attending) was present for the entire procedure. | | | Arben Valerio MD I was present for the entire procedure | | | (spinal cord stimulator implantation with DRG leads at left L4 and | | | L5) and all bocanegra elements of this visit. I reviewed the | | | documentation of the other HOME COORDINATOR providers and concur with | | | Iman's findings. I edited his note. Alex Sanchez, | | | ,PhD Design And Sales Consultant Anesthesiology and Pain Management | | | [facility] | | + + + HCG URINE, POC (12/05/2018 6:46 AM PST) + + + + + + | Component | Value | Ref Range | Performed | Pathologist | | | | | At | Signature | + + + + + + | HCG URINE, | Negative | Negative | [facility], | | | POC | | | [...] + + | JOSE ANTONIO MIN | [address] | [place] [address] | | | OF CARE TESTS | [...] in this encounter Administered Medications + +--------+ +-------+------+------+ | Medication Order | MAR | Action | Dose | Rate | Site | | | Action | Date | | | | + +--------+ +-------+------+------+ | heparin 100 unit/mL IV flush | [...] | | | | | + +--------+ +-------+------+------+ +---+---+ | | | +---+---+ + + + +---+---+---+ | lactated Ringers IV 10 mL/hr, | given by | 12/05/19 | | | | | intravenous, PROCEDURE | | 19 10:44 | | | | | CONTINUOUS, Starting 12/05/18 | anesthes | AM PST | | | | | at 0615, Until e 12/05/18 at | iology | | | [...] | + +---+ + +-------+ +-------+---+---+ | oxyCODONE (immediate release) [...] +-------+ +---------+---+---+ +---+---+ | | | +---+---+ documented in this encounter
--- OUTSIDE RECORDS SUMMARY | ~2020-08-23 | XMS | Encounter Summary ---
Demographics + + + | Address | [address] | | | [place] [address] | + + + | Home Phone [...] Author | [facility] | + + + | Organization | [facility] | + + + | Address | Unknown | + + + | Phone | Unavailable | + + + Support + + +---------+ + | Name | Relationship | Address | Phone | + + +---------+ + | Patricia Colin | ECON | Unknown | | + + +---------+ + Care Team Providers + +------+ + | Care Line Maintainer Section Name | Role | Phone | + +------+ + | Justo Vazquez MD | PCP | | + +------+ + Encounter Details +--------+ + + + + | Date | Type | Department | Care Team | Description | +--------+ + + + + | 10/19/ | Telephone | [facility] | Ilene Bright, | | | 2017 | | Pain Center at | MACHINE WEDGER [address] | | | | | [facility] | [place], [place] | | | | | [address] | [address] | | | | | [place] for [facility] | [phone] | | | | | and Healing, | | | | | | | | | | | | Floor [place], [place] | | | | | | [address] | | | | | | [phone] | | | +--------+ + + + [...] this encounter Miscellaneous Notes Telephone Encounter - Charline Salinas MA - 10/19/2017 3:42 PM PSTRouting to Ilene. Elec tronically signed by Charline Salinas MA at 10/19/2017 3:43 PM PSTTelephone Encounter - Tracie Ayon - 10/19/2017 3:35 PM PSTFormatting of this note might be different from the belen josias. Reason for Call: No chief complaint on file. Patient: Tracie Farah Contact Information: Home Phone Work Phone Message: Description of reason for call: Patient called to see if LIZBETH Robertson or [facility] are able to write her an Rx for Baclofen. She states that she is in an intolerable amount of pain and t hat her PCP cannot prescribe anything until she sees them for an appointment later this alexandria h. I informed patient that we do not prescribe, but that I would send the message to ask and that she would receive a call back. Patient states detailed VM is fine if she does not answ er. Last Encounter with [facility]: Last Appointment in [facility] was on 10/11/17 [id number] 3:35 pm with Vern Robertson NP. Future Appointments: Next Appointment in [facility] is on 10/26/17 at 4:15 pm with Richie Sims MD. Patient's Preferred Pharmacy: Pharmacy Preferences: [facility] [address] [place] [address] Hours: 8am-9pm Mon-fri; 9-5:30pm Sat-sun E-Prescribing: Yes E-Prescribing Control Substances: Yes [facility] [facility] [place] [address] Hours: 9am-9pm Mon-fri / 9am-7pm Sat / 10am-6pm Sun E-Prescribing: Yes E-Prescribing Control Substances: Yes [facility] #[id number] [address] [place] [address] Hours: 9am-7pm Mon-fri / 9am-6pm Sat / 10am-5pm Sun E-Prescribing: Yes E-Prescribing Control Substances: Yes documented in this encount er Plan of Treatment Not on filedocumented as of this encounter Visit Diagnoses Not on filedocumented in this encounter"
--- OUTSIDE RECORDS SUMMARY | ~2020-08-23 | XMS | Encounter Summary ---
Demographics + + + | Address | [address] | | | [place] [address] | + + + | Home Phone [...] Team Providers + +------+ + | Care Real Estate Sales Agent Name | Role | Phone | + +------+ + | Justo Vazquez MD | PCP | | + +------+ + Reason for Visit + +--------+ + | Reason | Onset | Comments | | | Date | | + +--------+ + | Evaluation AND/OR | 10/14/ | | | management - new | 2017 | | | patient | | | + +--------+ + Consultation (Routine) +--------+---------+ + + + + | Status | Reason | Specialty | Diagnoses / | Referred By | Referred To | | | | | Procedures | Contact | Contact | +--------+---------+ + + + + | Closed | Other | Psychology / | Diagnoses | Deangelo, | Zoilaist, | | | | Pain | Complex | Ilene, FUEL EFFICIENT AIRCRAFT DESIGNER | Catriona M, | | | | Management | regional | [address] | PSY D [address] | | | | pain | [address] | [address] | | | | | syndrome | [place], [place] | [place], [place] | | | | | type 1 of | [address] | [address] Phone: | | | | | left lower | Phone: | [phone] | | | | | extremity | [phone] | Fax: | | | | | Intractable | Fax: | [phone] | | | | | cyclical | [phone] | | | | | | vomiting [...] | | | | | | | [place] | | | | | | | PSYCHIATRIC | | | | | | | DIAGNOSTIC | | | | | | | EVAL, NO MED | | | | | | | [facility]CS [facility] | | | | | | | PSYCH TSTNG | | | | | | | PSYCH/PHYS | | | | | | | [place] | | | | | | | PSYCHOTHERAP | | | | | | | Y, 45 MIN | | | +--------+---------+ + + + + Encounter Details +--------+---------+ + + + | Date | Type | Department | Care Team | Description | +--------+---------+ + + + | 10/11/ | Office | Pain Center at [facility] | Jamel Bravo, | Adjustment disorder | | 2017 | Visit | [address] | PhD [address] | with mixed anxiety | | | | [facility] | [place], [place] | and depressed mood | | | | and Healing, | [address] | (Primary Dx); | | | | | [phone] | Complex regional | | | | Floor [place], [place] | | pain syndrome type 1 | | | | [address] | | of left lower | | | | [phone] | | extremity; Abdominal | | | [...] Jamel Bravo, PhD - 10/11/2017 10:50 AM [facility] Initial Psychologica l Evaluation IDENTIFYING INFORMATION: Tracie Farah is a 27 y.o. female Date of : 1990 Consulting Psychologist: JAMEL BRAVO PHD Consultation Date: 10/11/2017 Referring Provider: Ilene Bright Identifying Information: Tracie Farah is a 27 y.o. female who lives with her pargisela hartley in [place], [place]. The patient was referred for pain [...] by physician. Concentration is 150mg/mL. Compounded by [employer] ([phone]), Disp: , Rfl: 5 lamoTRIgine 200 mg [...] oral recon soln, Take as directed by [facility]- 2 gallon bowel prep, Disp: 8000 mL, [...] e. 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 For enjoyment the patient watches TV, reads, [...] time I spent was approximately 50 minutes idsw-zn-[id number] with the patient and approxima tely 1 hour 40 minutes of xyh-mcsz-bh-face testing, interpreting and synthesizing results. Jamel Bravo, PhD [facility] AT [facility] [address]TH [address]LO[address] Mail Code: [id number] [address] documented in this en counter [...]
--- OUTSIDE RECORDS SUMMARY | ~2020-08-23 | XMS | Encounter Summary ---
Demographics + + + | Address | [address] | | | [place] [address] | + + + | Home Phone [...] Team Providers + +------+ + | Care Vp Corporate Development Name | Role | Phone | + +------+ + | Justo Vazquez MD | PCP | | + +------+ + Encounter Details +--------+ + + + + | Date | Type | Department | Care Team | Description | +--------+ + + + + | 09/20/ | Telephone | [facility] | Ilene Bright, | | | 2017 | | Pain Center at | PHARMACY CLINICAL SPECIALIST [address] | | | | | [facility] | [place], [place] | | | | | [address] | [address] | | | | | [place] for [facility] | [phone] | | | | | and Healing, | | | | | | | | | | | | Floor [place], [place] | | | | | | [address] | | | | | | [phone] | | | +--------+ + + + [...] Telephone Encounter - Charline Salinas MA - 09/22/2017 12:51 PM PSTReviewed chart. Rolan called patient to schedule, if spot is available please add her to the schedule on 11/26 at 9:30. elepho ne Encounter - Brendon Tracie - 09/20/2017 10:31 AM PSTFormatting of this note might be diff erent from the original. Reason for Call: No chief complaint on file. Patient: Tracie Farah Contact Information: Home Phone Work Phone Message: Description of reason for call: Patient called to schedule trigger point injections but the re are currently no available appointments. Would it be possible to fit this patient in some where? Patient states that it is urgent. Last Encounter with [facility]: Last Appointment in [facility] was on 08/30/17 [id number] 10:31 am with TERESA Banuelso. Procedure. Future Appointments: Next Appointment in [facility] is on 10/11/17 at 10:20 am with Jamel Madden, PhD. Patient's Preferred Pharmacy: Pharmacy Preferences: [facility] [address] [place] [address] Hours: 8am-9pm Mon-fri; 9-5:30pm Sat-sun E-Prescribing: Yes E-Prescribing Control Substances: Yes [facility] [place] [address] Hours: 9am-9pm Mon-fri / 9am-7pm Sat / 10am-6pm Sun E-Prescribing: Yes E-Prescribing Control Substances: Yes [facility][id number] [address] [place] [address] Hours: 9am-7pm Mon-fri / 9am-6pm Sat / 10am-5pm Sun E-Prescribing: Yes E-Prescribing Control Substances: Yes documented in this encount er Plan of Treatment Not on filedocumented as of this encounter Visit Diagnoses Not on filedocumented in this encounter"
--- OUTSIDE RECORDS SUMMARY | ~2020-08-23 | XMS | Encounter Summary ---
Demographics + + + | Address | [address] | | | [place] [address] | + + + | Home Phone [...] Team Providers + +------+ + | Care Navy Senior Officer Name | Role | Phone | [...] 08/11/ | Documentati | KEVIN YANEZ at [facility] | Lab, Gi Procedure | Medical Records | | 2015 | on | [place] [address] | | Review | | | | [address] [facility] | | | | | | Health and Healing, | | | | | | Building [address] | | | | | | [place], [place] | | | | | | [address] | | | | | | [phone] | | | +--------+ + + + [...] this encounter Miscellaneous Notes Telephone Encounter - Lulú Rojas, FORTUNATO - 08/12/2016 3:11 PM PDTFormatting of this note migh t be different from the original. AFTER MEDICAL REVIEW to be scheduled: []Consultation []Colonoscopy []Flexible Sigmoidoscopy []EGD (Upper Endoscopy) [] Sm Bowel Enteroscopy []Capsule Endoscopy: []Small Bowel []ESO []Upper EUS 60min []Upper EUS 90min []Lower EUS []ERCP []24HR ph Monitor []Esophageal Manometry []48HR ph Monitor []Esophageal Manometry []Esophageal Manometry [x]Anorectal Manometry []Other: When to be scheduled: To be scheduled with: 2 to 4 weeks First available provider Patient Denied - (Reason): [] Get Images Pushed to IMPAX Other Comments: 26yr old female referred by Dr. Carbajal and Dr. Lin for ARM to evaluate se jay constipation possibly causing abd pain. Pt has long hx constipation. Since CRPS (Comple x regional pain syndrome) dx and narcotics it worsened but did not improve when she stopped narcotics. She had abnormal GES study but after review Dr. Carbajal and Dr. Lin ultimately t hink gastric emptying normal and is not cause of abd pain. 2014 CT showed lots of stool. Hx hemroidectomy, anxiety/depression. Please schedule ARM. elephone Encounter - González Pierre - 08/11/2016 2:40 PM PDTFormatting of this note might be different from the belen ginal. Tracie Donaldson [facility] [id number] REFERRAL FOR REVIEW: Reviewing Provider: Lulú Rojas RN [x]Internal Referral [] External Referral [] CORI Report Available Referring Diagnosis/Comments: K59.00 (ICD-10-CM) - 564.00 (ICD-9-CM) - Constipation, unspec ified constipation type "Severe constipation" [] emergent []urgent [x]routine []Consultation []Colonoscopy []Flexible Sigmoidoscopy []EGD (Upper Endoscopy) [] Sm Bowel Enteroscopy [] Upper Double Balloon Enteroscopy [] Lower Double Balloon Enteroscopy []Capsule Endoscopy: []Small Bowel []ESO []Upper EUS []Lower EUS []ERCP []24HR ph Monitor [] ON PPI (will be done OFF PPI unless checked) []48HR ph Mon itor [] ON PPI (will be done OFF PPI unless checked) []Esophageal Manometry [x]Anorectal Manometry []Other: Electronic Data: Last 1 Encounter BMI Readings: Date BMI 08/10/2016 25.29 kg/m2 Patient Active Problem List Diagnosis CRPS (complex regional pain syndrome), lower limb Gait disturbance Muscle pain Adjustment reaction Pain in joint, lower leg Disturbance in sleep behavior Epigastric pain 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 Constipation Current Outpatient Prescriptions Medication Sig ketamine 100 [...] No current facility-administered medications for this visit. Allergies Allergen Reactions Morphine Anaphylaxis Past Medical History Diagnosis Date Other chronic pain Reflex sympathetic dystrophy of the lower limb Depression Anxiety Compartment syndrome (HCC) Peroneal nerve injury Neuroma of lower extremity Ankle fracture, left Past Surgical History Procedure Laterality Date Tonsillectomy and adenoidectomy Ankle surgery x 9 Fasciotomy Neurectomy foot Nerve block 03/18/11 & 03/25/11 Left lumbar sympathetic ganglion block Hemroidectomy Trial spinal cord stimulator leads 08/02/2012 [facility], Surgeon: Janak Riojas MD Lab Results Component Value Date WBC 6.81 08/08/2016 HB 14.1 08/08/2016 HCT 41.8 08/08/2016 PLT 291 08/08/2016 MCV 91.9 08/08/2016 RDW 40.8 08/08/2016 INRPT 1.06 10/21/2015 NA 143 08/08/2016 K 3.7 08/08/2016 CL 110 08/08/2016 BICARB 26 08/08/2016 BUN 9 08/08/2016 CR 0.82 08/08/2016 GLU 80 08/08/2016 CA 8.3 08/08/2016 AST 41 08/08/2016 ALT 19 08/08/2016 AP 64 08/08/2016 TBILI 0.5 08/08/2016 TP 8.0 08/08/2016 ALB 4.4 08/08/2016 documented in this encount er Plan of Treatment Not on filedocumented as of this encounter Visit Diagnoses Not on filedocumented in this encounter
--- OUTSIDE RECORDS SUMMARY | ~2020-08-23 | XMS | Encounter Summary ---
Demographics + + + | Address | [address] | | | [place] [address] | + + + | Home Phone [...] Providers + +------+ + | Care Travel Sales Consultant Name | Role | Phone | + +------+ + | Justo Vazquez MD | PCP | | + +------+ + Encounter Details +--------+ + + + + | Date | Type | Department | Care Team | Description | +--------+ + + + + | 10/09/ | Telephone | [facility] | Alex Sanchez, | | | 2018 | | Pain Center at | ,PhD [address] | | | | | [facility] | [address] | | | | | [address] | [place], [place] | | | | | [place] for [facility] | [address] | | | | | and Healing, | [phone] | | | | | | | | | | | Floor [place], [place] | | | | | | [address] | | | | | | [phone] | | | +--------+ + + + [...] this encounter Miscellaneous Notes Telephone Encounter - Dory Acosta - 10/09/2018 7:30 AM PSTFormatting of this note negra ht be different from the original. Reason for Call: No chief complaint on file. Patient: Tracie Farah Contact Information: Home Phone Work Phone Message: Description of reason for call: Patient called and says that Dr. Sanchez told her to come i n at 10 am today for her SCS because her previous 10.[address] Lowell white request. I informed her that she is currently not on schedule and tried offering her 4 :30pm. She says No, because Dr. Sanchez told her 10 am and that she already informed her SCS rep to come in at [address] Sanchez about this and is waiting for a response. Last Encounter with [facility]: Last Appointment in [facility] was on 10/07/18 at 3:42 pm with Yosef Kenney MD. Wound infect ion. Future Appointments: No future appointments scheduled in Pain Management. Patient's Preferred Pharmacy: Pharmacy Preferences: [facility] [address] [place] [address] Hours: 8am-9pm Mon-fri; 9-5:30pm Sat-sun E-Prescribing: Yes E-Prescribing Control Substances: Yes [facility] [facility] [place] [address] Hours: 9am-9pm Mon-fri / 9am-7pm Sat / 10am-6pm Sun E-Prescribing: Yes E-Prescribing Control Substances: Yes [facility] #[id number] [place] [address] Hours: 9am-7pm Mon-fri / 9am-6pm Sat / 10am-5pm Sun E-Prescribing: Yes E-Prescribing Control Substances: Yes [facility] [address] [place] [address] Hours: E-Prescribing: Yes E-Prescribing Control Substances: Yes [facility] [address] [place] [address] Hours: 8am-6pm Mon-fri E-Prescribing: Yes E-Prescribing Control Substances: Yes [facility] [employer] [address] [place] [address] Hours: M-sat 9am/7pm,sun 11am/3pm E-Prescribing: Yes E-Prescribing Control Substances: Yes documented in this encou nter Plan of Treatment Not on filedocumented as of this encounter Visit Diagnoses Not on filedocumented in this encounter"
--- OUTSIDE RECORDS SUMMARY | ~2020-08-23 | XMS | Encounter Summary ---
Demographics + + + | Address | [address] | | | [place] [address] | + + + | Home Phone [...] Team Providers + +------+ + | Care Urban Gardening Specialist Name | Role | Phone | + +------+ + | Allegra Gandhi | PCP | | + +------+ + Reason for Visit + +--------+ + | Reason | Onset | Comments | | | Date | | + +--------+ + | Question | 04/07/ | | | | 2011 | | + +--------+ + Encounter Details +--------+ + + + + | Date | Type | Department | Care Team | Description | +--------+ + + + + | 04/07/ | Telephone | [facility] | Janak Riojas, | Question | | 2011 | | Pain Center at | [address] [facility] | | | | | [facility] | [facility] [id number] | | | | | [address] | [place], [place] | | | | | [facility] | [address] | | | | | and a[place]rtina, | [phone] | | | | | [facility] | | | | | | Floor [place], [place] | | | | | | [address] | | | | | | [phone] | | | +--------+ + + + [...] this encounter Miscellaneous Notes Telephone Encounter - Janak Riojas MD - 04/11/2012 1:40 PM PDTCan wait if she would pr efer... elephone Evelia Hayden - 04/11/2012 11:01 AM PDTPt's appt is 04/13/12, will forward to DR Mel olsen. elephone [place] - Milagros Kirkland - 04/11/2012 10:49 AM PDTPt is calling back because she has not heard back a bout whether she should come to appt. She travels from [place] and does not want to make t he drive if she needs to wait until after she sees physical therapist. Please advise. Electr onically signed by Milagros Kirkland at 04/11/2012 10:50 AM PDTTelephone Encounter - Key Marin - 04/07/2012 1:19 PM PDTWill forward to Dr Riojas. Evelia Marin [facility] elephone Milagros Butt - 04/07/2012 12:35 PM PDTFormatting of this note might be different from the or iginal. Reason for Call: Question Patient: Tracie Farah Contact Information: Home Phone Message: Description of reason for call: Pt called because she can not get in to see her physical th erapist before her appt with Dr. Riojas on 03/17/12. Would Dr. Riojas like for her to still co me to appt or wait until she sees physical therapist? Last Encounter with [facility]: Last History in [facility] was on 03/17/12 with Janak Riojas MD. Future Appointments: Next Appointment in [facility] is on 04/13/12 at 8:00 am with Janak Riojas MD. Patient's Preferred Pharmacy: Pharmacy Preferences: No preferred pharmacy on file. documented in this encoun ter Plan of Treatment Not on filedocumented as of this encounter Visit Diagnoses Not on filedocumented in this encounter"
--- OUTSIDE RECORDS SUMMARY | ~2020-08-23 | XMS | Encounter Summary ---
Demographics + + + | Address | [address] | | | [place] [address] | + + + | Home Phone [...] Team Providers + +------+ + | Care Baby Sitter Name | Role | Phone | + +------+ + | Justo Vazquez MD | PCP | | + +------+ + Reason for Visit +--------+--------+ + | Reason | Onset | Comments | | | Date | | +--------+--------+ + | Other | 11/10/ | | | | 2015 | | +--------+--------+ + Encounter Details +--------+ + + + + | Date | Type | Department | Care Team | Description | +--------+ + + + + | 11/10/ | Telephone | [facility] | Ava Carbajal | Other | | 2015 | | Center at [facility] [address] | MD Melissa | | | | | [address] [facility] | | | | | | for Health and | | | | | | [facility] | | | | | | [place], [place] | | | | | | [address] | | | | | | [phone] | | | +--------+ + + + [...] this encounter Miscellaneous Notes Telephone Encounter - Carroll Parekh RN - 12/07/2016 11:17 AM PSTI spoke with pt in [facility] on 12/14/16. She reports that she has not been able to take the capsu les because she is currently having an episode of the abdominal pain that she has previously reported, and she does not want to stop taking reglan in order to do the sitz marker study at this time. I advised that I would let the GI team know, and request that they follow up with her. Elec tronically signed by Carroll Parekh RN at 12/07/2016 11:22 AM PSTTelephone Encounter - Isadora Denney MA - 11/10/2016 3:43 PM PSTI called pt and reached her VM. I lvm letting her kn ow to take the capsule Tuesday and expect xrays Tue and Tue. I asked her to call after each xray if possible and not to use any laxative or stool softeners during the test. Office information provided. elephone Encounter - Nicolette Bruno - 11/10/2016 10:33 AM PSTPatient calling and stating that she just received the capsule for her test. She is not sure on what her next step is. Does she take the capsu le? Does she need to go into [facility]? She needs to know what her next step is. Please call back. Ph. [phone] signed by Nicolette Bruno at 11/10/2016 10:34 AM PSTdocument ed in this encounter Plan of Treatment Not on filedocumented as of this encounter Visit Diagnoses Not on filedocumented in this encounter"
--- OUTSIDE RECORDS SUMMARY | ~2020-08-23 | XMS | Encounter Summary ---
Demographics + + + | Address | [address] | | | [place] [address] | + + + | Home Phone [...] Team Providers + +------+ + | Care Owner Operator Tanker Truck Driver Name | Role | Phone [...] | | | | [address] [place] | [facility] [place] | | | | | for Health and | [address] | | | | | Healing, [address] | [phone] | | | | | [place], [place] | | | | | | [address] | | | | | | [phone] | | | +--------+ + + + [...] this encounter Miscellaneous Notes Telephone Encounter - Tania Lunsford - 09/15/2016 10:28 AM PDTFollow up phone call to venkatesh knutson regarding GI procedure from 09/14/2016. Patient states the following: "I'm doing good." Informed the patient that their referring provider will receive a copy of the procedure results within the next week. Patient advised to review all discharge information. [place] [id number] documented in this encounte r Plan of Treatment Not on filedocumented as of this encounter Visit Diagnoses Not on filedocumented in this encounter
--- OUTSIDE RECORDS SUMMARY | ~2020-08-23 | XMS | Encounter Summary ---
Demographics + + + | Address | [address] | | | [place] [address] | + + + | Home Phone [...] Providers + +------+ + | Care Physical Fitness Trainer Name | Role | Phone | [...] + + | 12/05/ | Surgery | [facility] | Alex Sanchez, | BILATERAL DORSAL | | 2019 | | [facility] | ,PhD [address] [employer] | ROOT GANGLION SPINAL | | | | and Healing Surgery | [address] | CORD STIMULATOR | | | | Center Admitting | [place], [place] | IMPLANT LUMBAR; | | | | Desk Located on the | [address] | POSTERIOR | | | | 4th floor [address] | [phone] | | | | | [address] [place], | | | | | | [place] [address] | | | +--------+---------+ + + + [...] may receive a patient satisfaction survey from "[employer]". We álvaro lopez appreciate your feedback on the survey [...] s/p successful DRG trial lead system with Sequent System on 09/25/2018. No changes in H&P, [...] OPERATIVE NOTE Date: December 05, 2018 Location: [facility] OR Tracie Farah [id number] :1990, presents to clinic for: Dorsal root ganglion stimulator implant PROCEDURE: Dorsal root ganglion stimulator implant PRE-OPERATIVE DIAGNOSIS: Complex regional Pain syndrome type 1 of left lower extremity POST-OPERATIVE DIAGNOSIS: Complex regional Pain syndrome type 1 of left lower extremity ATTENDING PHYSICIAN: Alex Sanchez BINDING STITCHER: Arben Valerio MD ANESTHESIA: sedation by IVIS Morales, supervised by industrial safety and health technician Ilir morley FINDINGS: Appropriate spread of IV [...] sedation. Ms. Farah was escorted to the [facility] OR, where sh e was positioned Prone [...] were then connected to the [facility] representatives. A test stimulation was performed and once [...] recovery room and he was provided with compre hensive instructions for post op care. A oxycodone and promethazine prescription was provided for post procedural pain and nausea. Ms. Farah was transported to the PACU where she made an uneventful recovery. Images were saved, and sent to [employer]. Alex Sanchez (attending) was present for the entire procedure. Arben Valerio MD I was present for the entire procedure (spinal cord stimulator implantation with DRG leads at left L4 and L5) and all bocanegra elements of this visit. I reviewed the documentation of the other [facility] providers and concur with Dr. Valerio's findings. I edited his note. Alex Sanchez MD,PhD Farm Operations Technical Director Anesthesiology and Pain Management [facility] documented in t his encounter Plan of [...] At | + + + | Alex D Sdrulla, MD,PhD 12/06/2018 9:20 AM PROVIDER | | | OPERATIVE NOTE Date: December 05, 2018 Location: [facility] OR | | | Tracie Farah [id number] :1990, presents to clinic | | | for: Dorsal root ganglion stimulator implant PROCEDURE: Dorsal | | | root ganglion stimulator implant PRE-OPERATIVE DIAGNOSIS: Complex | | | regional Pain syndrome type 1 of left lower extremity | | | POST-OPERATIVE DIAGNOSIS: Complex regional Pain syndrome type 1 of | | | left lower extremity ATTENDING PHYSICIAN: Alex Sanchez | | | BINDING STITCHER: Arben Valerio MD ANESTHESIA: sedation by IVIS Cole | | | Carmen, supervised by industrial safety and health technician Ilir Valdes. | | | FINDINGS: [...] sedation. Ms. Farah was escorted to the [facility] | | | [place], where she was [...] to the | | | [facility] representatives. A test stimulation was performed and once [...] recovery. Images were saved, and sent to [employer]. | | | Alex Sanchez (attending) was present for the entire procedure. | | | Arben Valerio MD I was present for the entire procedure | | | (spinal cord stimulator implantation with DRG leads at left L4 and | | | L5) and all bocanegra elements of this visit. I reviewed the | | | documentation of the other [employer] providers and concur with | | | Iman's findings. I edited his note. Alex Sanchez, | | | ,PhD Farm Operations Technical Director Anesthesiology and Pain Management | | | [facility] | | + + + [...] + | JOSE ANTONIO MIN | [address] [facility] | [place] [address] | | | OF CARE TESTS | [...]
--- OUTSIDE RECORDS SUMMARY | ~2020-08-23 | XMS | Encounter Summary ---
Demographics + + + | Address | [address] | | | [place] [address] | + + + | Home Phone [...] Providers + +------+ + | Care Dry Chain Operator Name | Role | Phone | + +------+ + | Justo Vazquez MD | PCP | | + +------+ + Reason for Visit + +--------+ + | Reason | Onset | Comments | | | Date | | + +--------+ + | Returning Phone Call | 06/22/ | | | | 2016 | | + +--------+ + Encounter Details +--------+ + + + + | Date | Type | Department | Care Team | Description | +--------+ + + + + | 06/22/ | Telephone | [facility] | Ilene Bright, | Returning Phone Call | | 2017 | | Pain Center at | CLOUD SOFTWARE ENGINEER [address] | | | | | [facility] | [place], [place] | | | | | [address] | [address] | | | | | [facility] | [phone] | | | | | and Healing, | | | | | | Building | | | | | | Floor [place], [place] | | | | | | [address] | | | | | | [phone] | | | +--------+ + + + [...] encounter Miscellaneous Notes Telephone Encounter - Ilene Bright, CLOUD SOFTWARE ENGINEER - 06/23/2017 1:37 PM PDTSpoke with Justo ceballos MD regarding Tracie. She has been admitted twice in the past 2 weeks for acute on chronic abdominal pain. These exacerbations are increasing, 6 months ago, she was having exacerbati ons every 6-8 weeks and now she has had [address] Vazquez is looking for further recommendations. She has tried Lyrica, which I recommended in April. Although she has been taking this inconsistently, she thinks it has not been effec tive at reducing her pain. The most effective medication is Toradol, which she receives while inpatient with [facility]. When I last evaluated Tracie in April, she was not having this frequency of exacerbations. I need to re-evaluate Tracie before I give further recommendations, which may include a nerve b lock. Our office has communicated with Tracie and we will follow up with her CHIP after she is dis charged from her [place] hospital. Ilene Childs DNP, CLOUD SOFTWARE ENGINEER-C [facility] [address] [place] [address] elephone Encounter - Charline Salinas MA - 06/22/2017 2:22 PM PDTReviewed chart. Routing to provider. Electr onically signed by Charline Salinas MA at 06/22/2017 2:24 PM PDTTelephone Encounter - Vandana Fang - 06/22/2017 11:16 AM PDTFormatting of this note might be different from the origina l. Reason for Call: No chief complaint on file. Patient: Tracie Farah Contact Information: Home Phone Work Phone Message: Description of reason for call: patient's PCP called wanting to discuss with Ilene patient 's care because she has been hospitalize many times due to pain. His cell #[phone]. Josiah ramos. Last Encounter with [facility] Last Appointment in [facility] was on 06/07/17 [id number] 11:17 am with TERESA Banuelos. Care Coordination. Future Appointments: Next Appointment in [facility] is on 07/11/17 at 1:20 pm with TERESA Banuelos. Patient's Preferred Pharmacy: Pharmacy Preferences: [facility] [address] [place] [id number] [place] [address] Hours: 8am-9pm Mon-fri; 9-5:30pm Sat-sun E-Prescribing: Yes E-Prescribing Control Substances: Yes [facility] [facility] [place] [address] Hours: 9am-9pm Mon-fri / 9am-7pm Sat / 10am-6pm Sun E-Prescribing: Yes E-Prescribing Control Substances: Yes [id number] [facility] [place] [address] Hours: 9am-7pm Mon-fri / 9am-6pm Sat / 10am-5pm Sun E-Prescribing: Yes E-Prescribing Control Substances: Yes documented in this encounter Plan of Treatment Not on filedocumented as of this encounter Visit Diagnoses Not on filedocumented in this encounter"
--- OUTSIDE RECORDS SUMMARY | ~2020-08-23 | XMS | Encounter Summary ---
Demographics + + + | Address | [address] | | | [place] [address] | + + + | Home Phone [...] Team Providers + +------+ + | Care Sports Marketing Internship Name | Role | Phone | + +------+ + | Justo Vazquez MD | PCP | | + +------+ + Encounter Details +--------+ + + + + | Date | Type | Department | Care Team | Description | +--------+ + + + + | 12/07/ | Pharmacy | [facility] | | | | 2019 | Visit | & [facility] | | | | | | [address] | | | | | | Mailcode: [place] | | | | | | [facility] Health and | | | | | | Healing, [address] | | | | | | [place], [place] | | | | | | [address] | | | | | | [phone] | | | +--------+ + + + [...]
--- OUTSIDE RECORDS SUMMARY | ~2020-08-23 | XMS | Encounter Summary ---
Demographics + + + | Address | [address] | | | [place] [address] | + + + | Home Phone [...] Team Providers + +------+ + | Care Counter Attendant Name | Role | Phone | [...] | CRPS | Janak Martinez MD | [facility] [address] | | | | | (complex | [address] | Pavilion | | | | | regional | [address] | [address] | | | | | pain | Mailstop | [address], | | | | | syndrome), | [id number] | Basement | | | | | lower limb | [place], [place] | [place], [place] | | | | | Procedures | [address] | [address] | | | | | [place] BONE &/[place] | Phone: | Phone: | | | | | JOINT | [phone] | [phone] | | | | | IMAGING 3 | Fax: | Fax: | | | | | PHASE | [phone] | [phone] | +--------+--------+ + + + + Encounter Details +--------+ + + + + | Date | Type | Department | Care Team | Description | +--------+ + + + + | 02/13/ | Hospital | Nuclear Medicine | | | | 2011 | Encounter | at [facility] [address] | | | | | | [address] | | | | | | [address], | | | | | | [place], | | | | | | [place] [address] | | | | | | [phone] | | | +--------+ + + + [...] +---------+--------+ + documented as of this encounter Procedure Anders Richardson - 02/25/2012 2:46 PM PDTAssociated Order(s): ORDERS OTHERElectronically sig isabel by Faculty Other at 02/25/2012 2:47 PM PDTdocumented in this encounter Miscellaneous Notes Scan - Carmen Faculty - 02/24/2012 11:17 AM PDTElectronically signed by Faculty Other at 11:17 AM PDTScan - Carmen Faculty - 02/24/2012 11:17 AM PDT documented in this encounter Plan of Treatment [...]
--- OUTSIDE RECORDS SUMMARY | ~2020-08-23 | XMS | Encounter Summary ---
Demographics + + + | Address | [address] | | | [place] [address] | + + + | Home Phone [...] Team Providers + +------+ + | Care Qa Test Analyst Name | Role | Phone | + +------+ + | Allegra Gandhi | PCP | | + +------+ + Reason for Visit + +--------+ + | Reason | Onset | Comments | | | Date | | + +--------+ + | Follow-up visit | 03/20/ | | | | 2011 | | + +--------+ + Consultation (Routine) +--------+--------+ + + + + | Status | Reason | Specialty | Diagnoses / | Referred By | Referred To | | | | | Procedures | Contact | Contact | +--------+--------+ + + + + | Closed | | Psychology / | Diagnoses | Beulah, | Team Assistant Psych | | | | Pain | CRPS | Janak Martinez MD | [facility] [address] | | | | Management | (complex | [address] | | | | | regional | [address] | Center for | | | | | pain | Mailstop | Health and | | | | | syndrome), | [id number] | Healing, | | | | | lower limb | [place], [place] | Building | | | | | Gait | [address] | 1,15th Floor | | | | | disturbance | Phone: | [place], [place] | | | | | Muscle pain | [phone] | [address] | | | | | Procedures | Fax: | Phone: | | | | | CONSULT TO | [phone] | [phone] | | | | | PAIN CENTER | | Fax: | | | | | | | [phone] | +--------+--------+ + + + + Encounter Details +--------+---------+ + + + | Date | Type | Department | Care Team | Description | +--------+---------+ + + + | 03/20/ | Office | [facility] [place] | Shelia Feldman, PhD | Unspecified | | 2011 | Visit | [address] | | adjustment reaction | | | | [facility] | | (Primary Dx) | | | | and Healing, | | | | | | Building | | | | | | Floor [place], [place] | | | | | | [address] | | | | | | [phone] | | | +--------+---------+ + + + [...] Feldman, PhD - 03/20/2012 3:27 PM PDT [facility] Name: Tracie Donaldson [facility] MR#: [id number] Date of : 1990 Date: March 20, 2012 Attending Psychologist: SHELIA FELDMAN, PHD CPT: 96677 Duration: 60min Psych: 309.0 Pain: 355.71 Tracie arrived on time for today's appointment, casually dressed and neatly groomed. Affect was appropriate, mood normothymic. She drove herself today and used crutches. She stated t hat she was doing "better", mainly because she has returned to work at [employer]. She is wo rking about 2 hour [...] discretion, not currently planned. SHELIA FELDMAN, PHD Electrical Products Sales Engineer Licensed Clinical Psychologist [facility] Department of Anesthesiology & Perioperative Medicine [facility] [address] [place], [place] [id number] Historical Information: Introduction: Tracie Farah is a 21-year-old woman with >5 year hx of CRPS, R LE.S ocial & Psychiatric History: Tracie Farah lives in [place] in a shared apartment space. She has struggled wi th CRPS for at least 5 years; original injury to her foot was in 2001. In summer 2010 she h ad inpt pain tx at [facility] with limited mcc benefit. Recent flare; [...] She learned some pain management techniques at [facility], mainly DB and PMR, which she [...] Travel is a barrier; she lives in [place] DSM-IV Diagnoses/Impressions: [place] I: 1. 309.9 Unspecified Adjustment Reaction 2. 780.50 Sleep Disturbance [place] II: Deferred. [place] III: Patient Active Problem List Diagnoses CRPS (complex regional pain syndrome), lower limb Gait disturbance Muscle pain Adjustment reaction [place] IV: CRPS pain, pain related debility;difficulty attending class, working; family stres s; stalker ex-bf [place] V: Global Assessment of Functioning = 75 [...] me should questions arise. SHELIA FELDMAN, PHD Electrical Products Sales Engineer Licensed Clinical Psychologist [facility] Department of Anesthesiology & Perioperative Medicine [facility] [address] [place] [address] documented in this enc ounter Plan of Treatment Not on filedocumented as of this encounter Visit Diagnoses + + | Diagnosis | + + | Unspecified adjustment reaction - Primary | + + documented in this encounter
--- OUTSIDE RECORDS SUMMARY | ~2020-08-23 | XMS | Encounter Summary ---
Demographics + + + | Address | [address] | | | [place] [address] | + + + | Home Phone [...] Team Providers + +------+ + | Care Fuel Retrofitting Technician Name | Role | Phone | [...] | | | | regional | ,PhD [address] | | | | | | pain | [address] | | | | | | syndrome | [address] | | | | | | type [address] of | Rd | | | | | | left lower | [place], [place] | | | | | | extremity | [address] | | | | | | Procedures | Phone: | | | | | | PHYSICAL | [phone] | | | | | | THERAPY | Fax: | | | | | | REFERRAL | [phone] | | +--------+--------+ + + + + Encounter Details +--------+ + + + + | Date | Type | Department | Care Team | Description | +--------+ + + + + | 01/22/ | Telephone | [facility] Comprehensive | Alex Sanchez, | | | 2019 | | Pain Center at | ,PhD [address] [facility] | | | | | [facility][Note 3] | [facility] | | | | | [address] | [place], [place] | | | | | [facility] | [address] | | | | | and [address], | [phone] | | | | | | | | | | | Floor [place], [place] | | | | | | [address] | | | | | | [phone] | | | +--------+ + + + [...] this encounter Miscellaneous Notes Telephone Encounter - Smita Baca MA - 01/23/2019 3:41 PM PDTFaxed External PT order to [facility] [place] [place] via [employer] @[phone].Electronically lucinda d by Smita Baca MA at 01/23/2019 3:42 PM PDTTelephone Encounter - Kedar Nicholson - 01/22 12:53 PM PDTDoes patient have confidential voicemail so we can leave detailed messages ?: Yes Reason for call: Tracie is calling to see if she can get some PT orders faxed to [facility] in [place] #[phone] . She says that she doesn't feel fully recovered yet. Feels like her core is still weak, and is having a rough time wit h her recovery. Would like to get some pt for her back. If someone could let her know when the order has been sent. documented in this encounter Plan of Treatment Not on filedocumented as of this encounter Visit Diagnoses + + | Diagnosis | + + | Complex regional pain syndrome type 1 of left lower extremity - Primary | + + documented in this encounter"
--- OUTSIDE RECORDS SUMMARY | ~2020-08-23 | XMS | Encounter Summary ---
Demographics + + + | Address | [address] | | | [place] [address] | + + + | Home Phone [...] Team Providers + +------+ + | Care Quality Assistant Name | Role | Phone | [...] | | Complex | Alex Alba, | [facility] [address] | | | | | regional | ,PhD [address] | Pavilion | | | | | pain | [address] | [address] | | | | | syndrome | [address] | [address], | | | | | type 1 of | Rd | Basement | | | | | left lower | [place], [place] | [place], [place] | | | | | extremity | [address] | [address] | | | | | Muscle pain | Phone: | Phone: | | | | | Procedures | [phone] | [phone] | | | | | NM BONE | Fax: | Fax: | | | | | &/OR JOINT | [phone] | [phone] | | | | | IMAGING | [...] | | | | | | [place] BONE | | | | | | | IMAGING, | | | | | | | LIMITED AREA | | | | | | | MT BONE | | | | | | [...] | Pain Center at | ,PhD [address] [facility] | | | | | [facility] | [address] | | | | | [address] | [place], [place] | | | | | [facility] | [address] | | | | | and [address], | [phone] | | | | | [facility] | | | | | | Floor [place], [place] | | | | | | [address] | | | | | | [phone] | | | +--------+ + + + [...]
--- OUTSIDE RECORDS SUMMARY | ~2020-08-23 | XMS | Encounter Summary ---
Demographics + + + | Address | [address] | | | [place] [address] | + + + | Home Phone [...] Providers + +------+ + | Care Senior Geologist Name | Role | Phone | + [...] | | [address] [facility] for | [place], [place] | | | | | Health and Healing, | [address] | | | | | | [phone] | | | | | [place], [place] | | | | | | [address] | | | | | | [phone] | | | +--------+ + + + [...]
--- OUTSIDE RECORDS SUMMARY | ~2020-08-23 | XMS | Encounter Summary ---
Demographics + + + | Address | [address] | | | [place] [address] | + + + | Home Phone [...] Team Providers + +------+ + | Care Cash Register Balancer Name | Role | Phone | + +------+ + | Justo Vazquez MD | PCP | | + +------+ + Encounter Details +--------+ + + + + | Date | Type | Department | Care Team | Description | +--------+ + + + + | 05/18/ | Telephone | [facility] | Alex Sanchez, | | | 2019 | | Pain Center at | ,PhD [address] | | | | | [facility] | [address] | | | | | [address] | [place], [place] | | | | | [facility] | [address] | | | | | and Healing, | [phone] | | | | | | | | | | | Floor [place], [place] | | | | | | [address] | | | | | | [phone] | | | +--------+ + + + [...] this encounter Miscellaneous Notes Telephone Encounter - Cristela Rg MA - 05/23/2019 5:43 PM PDTRouted to provider to karen sanchez. elephone Encoun Paulina Sanchez - 05/21/2019 1:28 PM PDTPatient calling back to see if Dr. Sanchez can g nelia her a call about this Please review and advise ele phone Encounter - Vanessa Edmondson - 05/18/2019 2:47 PM PDTPatient is calling because she has a medication contract with Dr. Sanchez . She would like to know what to do because she is gett ing surgery on the and they usually prescribe her medications for after that surgery. S he needs to know what to do about that. Can Daniel accept that prescriptions since it is fo r surgery or does he need to prescribe them for you? Please call patient back documented in this encounter Plan of Treatment Not on filedocumented as of this encounter Visit Diagnoses Not on filedocumented in this encounter"
--- OUTSIDE RECORDS SUMMARY | ~2020-08-23 | XMS | Encounter Summary ---
Demographics + + + | Address | [address] | | | [place] [address] | + + + | Home Phone [...] Providers + +------+ + | Care Exercise Rider Name | Role | Phone | + [...]
--- OUTSIDE RECORDS SUMMARY | ~2020-08-23 | XMS | Encounter Summary ---
Demographics + + + | Address | [address] | | | [place] [address] | + + + | Home Phone [...] Providers + +------+ + | Care Rn Employee Health Name | Role | Phone | + [...] Rd | | | | | | [place], [place] | | | | | | [address] | | | +--------+ + + + [...]
--- OUTSIDE RECORDS SUMMARY | ~2020-08-23 | XMS | Encounter Summary ---
Demographics + + + | Address | [address] | | | [place] [address] | + + + | Home Phone [...] Team Providers + +------+ + | Care Toolman Name | Role | Phone | + +------+ + | Justo Vazquez MD | PCP | | + +------+ + Reason for Visit + +--------+ + | Reason | Onset | Comments | | | Date | | + +--------+ + | Procedure | 08/25/ | | | | 2016 | | + +--------+ + Encounter Details +--------+ + + + + | Date | Type | Department | Care Team | Description | +--------+ + + + + | 08/25/ | Telephone | KEVIN Odom | Ilene Bright | Procedure | | 2017 | | Pain Center at | RUBBER PRINTING MACHINE OPERATOR [address] | | | | | [facility] | [place], [place] | | | | | [address] | [address] | | | | | [facility] | [phone] | | | | | and Healing, | | | | | | Building | | | | | | Floor [facility] [place] | | | | | | [address] | | | | | | [phone] | | | +--------+ + + + [...] Telephone Encounter - Ilene Bright FNP - 08/26/2017 1:22 PM PDTSpoke with Tracie baez a fternoon. She has just returned from seeing her pain/CRPS specialist in [place], in discus sing her pain, her pain physician recommended a trigger point injection into her abdominal s car. Tracie and I had also discussed this at her visit. I will place the order today and we w ill schedule her once the procedure has been authorized. Ilene Childs DNP, RUBBER PRINTING MACHINE OPERATOR-C Adult Pain Service /[facility] [address] [place] [address] elephone Encounter - Charline Salinas MA - 08/26/2017 10:04 AM PDTReviewed chart. Routing to provider.Electro nically signed by Charline Salinas MA at 08/26/2017 10:05 AM PDTTelephone Encounter - Vanessa Edmondson - 08/25/2017 11:39 AM PDT Reason for Call: No chief complaint on file. Patient: Tracie Farah Contact Information: Home Phone Work Phone Message: Description of reason for call: patient is calling because she just got done seeing her [place] n physician in [place] and talked to them about Dr. Krishnan suggesting an injection i nto her scar area for the pain. Patient would like to schedule this procedure. Please advise that we need an order Last Encounter with [facility]: Last Appointment in [facility] was on 08/09/17 [id number] 11:39 am with TERESA Banuelos. Question. Future Appointments: Next Appointment in [facility] is on 10/11/17 at 10:20 am with Jamel Madden, PhD. Patient's Preferred Pharmacy: Pharmacy Preferences: [facility] [address] [place] [address] Hours: 8am-9pm Mon-fri; 9-5:30pm Sat-sun E-Prescribing: Yes E-Prescribing Control Substances: Yes [facility] [place] [address] Hours: 9am-9pm Mon-fri / 9am-7pm Sat / 10am-6pm Sun E-Prescribing: Yes E-Prescribing Control Substances: Yes [id number] [address] [place] [address] Hours: 9am-7pm Mon-fri / 9am-6pm Sat / 10am-5pm Sun E-Prescribing: Yes E-Prescribing Control Substances: Yes documented in this encounter Plan of Treatment Not on filedocumented as of this encounter Visit Diagnoses Not on filedocumented in this encounter"
--- OUTSIDE RECORDS SUMMARY | ~2020-08-23 | XMS | Encounter Summary ---
Demographics + + + | Address | [address] | | | [place] [address] | + + + | Home Phone [...] Providers + +------+ + | Care Material Mixer Name | Role | Phone | + +------+ + | Justo Vazquez MD | PCP | | + +------+ + Encounter Details +--------+ + + + + | Date | Type | Department | Care Team | Description | +--------+ + + + + | 03/16/ | Telephone | Digestive Health | Crys Gomez, | | | 2016 | | Center at [facility] [address] | [address] | | | | | [address] | [address] | | | | | [facility] and | [place], [place] | | | | | [facility] [address] | [address] | | | | | [place], [place] | [phone] | | | | | [address] | | | | | | [phone] | | | +--------+ + + + [...] this encounter Miscellaneous Notes Telephone Encounter - Isadora Eller MA - 03/17/2017 3:40 PM PDTI s/w the pt. She will pa y out of pocket for her medication and needs us to notify the pharmacy of this so they can r elease it as well as cancel out the tramadol. Agreed to do so. elephone Encounter - Ly Wilkins - 2016 3:38 PM PDTPatient calling stating that her pharmacy is not able to fill the Tramadol because it came in under Dr. Gaspar and he cannot prescribe that type of medication. Inés REESE, call connected. 3:3 8 PM PDTTelephone Encounter - Isadora Eller MA - 03/17/2017 1:19 PM PDTReceived call from pharmacy ([facility]) letting me know that PA is needed for Ketorolac. I let him know I was worki luanne on it. If we end up using Tramadol instead, will have to call it in under Dr. Reich. [facility] also wanted Dr. Gaspar to be aware she received her last injectable Ketorolac on 03/07 and that there is a window she has to be off of it all together before starting oral. FYI only. elephone Encounter - Isadora Whitfield MA - 03/17/2017 11:13 AM PDTUrgent PA for pts Toradol (Ketorolac) 10 mg table ts [facility] [employer]. elephone Encounter - Tala Burns RN - 03/17/2017 9:39 AM PDTSpoke with Tracie about medications and how she is doing. She was able to spanish moss picker the ativan from the pharmacy and it helped her sleep last night. She is agreeable to try Tramadol if it does not need a PA like toradol does. Advised to inc rease miralax by 1 capful per day when taking as it can increase constipation (she is caitie hay taking 4 capfuls per day). Rx for tramadol called in. Plan is for Tracie to start that if pharmacy can fill without PA. In the meantime we will work on PA for toradol, as this is the preferred medication to nicolasa t her pain, and we can switch to this when PA is complete. Tracie is agreeable to the plan. ----- Message ----- From: Kenny Gaspar MD Sent: 03/17/2017 9:36 AM To: Tala Burns RN, Gas Triage Pool Lets try tramadol 50mg q6hrs. 10 :00 AM PDTTelephone Encounter - Crys Gomez MD - 03/16/2017 6:01 PM PDTPatient jessica ng to say she is having an issue with picking up toradol from pharmacy. [facility] and toradol needs prior authorization. Angelo, do you mind working on this tomorrow? Thank you! Called patient back and left voice mail stating above. documented in this encounter Plan of Treatment Not on filedocumented as of this encounter Visit Diagnoses + + | Diagnosis | + + | Abdominal pain, unspecified location - Primary | + + documented in this encounter"
--- OUTSIDE RECORDS SUMMARY | ~2020-08-23 | XMS | Encounter Summary ---
Demographics + + + | Address | [address] | | | [place] [address] | + + + | Home Phone [...] Team Providers + +------+ + | Care Shirt Folding Machine Operator Name | Role | Phone [...] | | | | | extremity | [address] | [address] | | | | | Procedures | Phone: | Phone: | | | | | REQUEST TO | [phone] | [phone] | | | | | SURGERY | Fax: | Fax: | | | | | TIMBER [facility]ER | [phone] | [phone] | +--------+---------+ + + + + Encounter Details +--------+---------+ + + + | Date | Type | Department | Care Team | Description | +--------+---------+ + + + | 12/22/ | Office | [facility] Comprehensive | Ilene Bright, | Complex regional | | 2019 | Visit | Pain Center at | ENGINEERING TECHNOLOGIST [address] | pain syndrome type 1 | | | | [facility] | [place], [place] | of left lower | | | | [address] | [address] | extremity; S/P | | | | [place] for [facility] | [phone] | insertion of spinal | | | | and Healing, | | cord stimulator | | | | Building | | | | | | Floor [place], [place] | | | | | | [address] | | | | | | [phone] | | | +--------+---------+ + + + [...] Comprehensive Pain Center today. We look fo rward to working with you in the future. As a reminder, this clinic generally does not pres cribe or dispense medications. We will send a copy of our notes, including detailed recomme ndations, to your primary care provider (PCP). Any prescriptions will need to come from gladys t provider. Please contact their office within the next few days to make an appointment to nimco kraus started with our recommendations. Below is a short summary of what we discussed today fo r your reference. - The [place] training representative met with you and made adjustments to your stimulator. I spoke w ith the training representative and she is happy with your [...] I will call this prescription into the [facility] in [place]. It was great to see you again, documented in this encounter Progress Notes Ilene Bright, TERESA - 12/22/2018 11:00 AM PSTFormatting of this note might be different fr om the original. [facility] Comprehensive Pain Center Return Visit Date: 12/22/2018 Chief Complaint Patient presents with Low back pain Pain in left leg History of Present Illness: Tracie Farah is a 28 year old female, whose last appoi ntment at the 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 Goes to [employer] with a light load. Has been working at [employer], can' t work on crYaphie. Has roommates. Allergies Allergen Reactions Morphine Anaphylaxis [...] GRAM-5.86 GRAM SOLUTION Take as directed by [facility] Digestive Health- 2 gallon bowel prep [...] with nausea Abdominal pain Abdominal scar neuroma [facility] CLINICAL PROTOCOL PATIENT (CLNPRO) - Implanted [...] and summary of old medical records (source: [facility], [facility] [place] Everywhere), as summarized in the body of [...] taking for her surgical incision. The SCS training representative visited the patient in order to [...] Disp# 10 Refill# 0 to start on 12/26. Recommendation/Plan: - Follow up with Dr. [...] ed by Collin Salomon. Ilene Childs DNP, ENGINEERING TECHNOLOGIST-C Adult Pain Service /[facility] [address] [place] [address] Charline Nation MA - 12/22/2018 11:00 AM PSTCMA History: [...]
--- OUTSIDE RECORDS SUMMARY | ~2020-08-23 | XMS | Encounter Summary ---
Demographics + + + | Address | [address] | | | [place] [address] | + + + | Home Phone [...] Phone | + + +---------+ + | Particia Colin | ECON | Unknown | | + + +---------+ + Care Team Providers + +------+ + | Care Excel Developer Name | Role | Phone | [...] | | | regional | [place] | [address] | | | | | pain | FAMILY | Mailstop | | | | | syndrome), | MEDICINE P | [id number] | | | | | lower limb | [address] | [place], [place] | | | | | Pain in | [place], | [address] | | | | | joint, lower | [place] [address] | Phone: | | | | | leg | Phone: | [phone] | | | | | Procedures | [phone] | Fax: | | | | | REQUEST TO | Fax: | [phone] | | | | | SURGERY | [phone] | | | | | | TOBACCO SWEEPER | | | +--------+--------+ + + + [...] | | | sympathetic | [place]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 | FAMILY | [address]stop | | | | | of lower | MEDICINE P | 320051 | | | | | limb | [address] | [place], [place] | | | | | | [place], | [address] | | | | | | [place] [address] | Phone: | | | | | | Phone: | [phone] | | | | | | [phone] | Fax: | | | | | | Fax: | [phone] | | | | | | [phone] | | +--------+--------+ + + + + Encounter Details +--------+---------+ + + + | Date | Type | Department | Care Team | Description | +--------+---------+ + + + | 06/06/ | Office | [facility] Comprehensive | Dale Cantu, | CRPS (complex | | 2011 | Visit | Pain Center at | MD [address] [facility] | regional pain | | | | [facility] | [facility] [address] | syndrome), lower | | | | [address] | [place], [place] | limb; Pain in joint, | | | | [facility] | [address] | lower leg | | | | and Healing, | [phone] | | | | | | | | | | | Floor [place], [place] | | | | | | [address] | | | | | | [phone] | | | +--------+---------+ + + + [...] Dale Cantu MD - 06/06/2012 11:49 AM PDTCOMPREF[facility] Pre-Procedure Instructions: The procedure you discussed with your doctor is called: SCS TRIAL LUMBAR [facility]. Please make sure this is scheduled with the Csw. Please bring a deliver driver with you. We may give you medications that make you drowsy or otherw ise unsafe to drive. If you do not have a deliver driver, we will not be able to do your procedure. DO NOT EAT ANYTHING AFTER MIDNIGHT If your appointment is after 1 PM , you may have a very light, low fat breakfast, such as h correction a piece of dry toast or a [...] PLEASE CONTACT THE COMPREHENSIVE PAIN CENTER AT [phone] ([phone]) FOR QUESTIONS OR IF YOU NEED TO CANCEL YOUR APPOINTMENT. [facility] Comprehensive Pain Center documented in [...] not signed. Given information. DALE CANTU MD Refuse Driver, Comprehensive Pain Center Special Education Professor, Pain Medicine Professor, Anesthesiology & Perioperative Medicine ollHomer manriquez MD - 06/06/2012 11:17 AM PDT [facility] Return Visit with Dr. [...] combination with the strategies she is learning fro david Feldman to help her cope with the [...] and a pain drawing which I reviewed. [facility] Brief Pain Inventory: (ten= worst possible pain or complete interference) Right Now: 8 (06/06/12 1102) Least in 24 hours: 8 (06/06/12 1102) Worst in 24 hours: 9 (06/06/12 1102) Average: 8 (06/06/12 1102) % Relief (med/treat): 10 (06/06/12 1102) General Activity: 8 (06/06/12 1102) Mood: 10 (06/06/12 1102) Walking Ability: 8 (06/06/12 1102) Normal Work: 6 (06/06/12 1102) Relations with Others: 7 (06/06/12 1102) Enjoyment of Life: 9 (06/06/12 1102) Sexual Activity: 0 (06/06/12 1102) Sleep: 9 (06/06/12 1102) Since the last visit she states that [...] The Review of Systems obtained by the [facility] was reviewed. Additional Review of Systems: Bones, [...] up with Dr. Dale Cantu at the [facility] today for left foot CRPS which [...] Stimuation Trial. Provided detailed information to kelly Iqbal placed. 2. No medication changes suggested at present, [...] therapy Homer Elaine MD Pain Medicine Fellow [facility] Center Evelia Parsons - 11:07 AM PDTCMA History: [...] physical activity documented in this encoun ter Miscellaneous Notes Scan - Anders Morales - 06/14/2012 1:35 PM PDTElectronically signed by Anders Morales at 1:35 PM PDTdocumented in this encounter Plan of Treatment Not on filedocumented as of this encounter Visit Diagnoses + + | Diagnosis | + + | CRPS (complex regional pain syndrome), lower limb Causalgia of lower limb | + + | Pain in joint, lower leg | + + documented in this encounter
--- OUTSIDE RECORDS SUMMARY | ~2020-08-23 | XMS | Encounter Summary ---
Demographics + + + | Address | [address] | | | [place] [address] | + + + | Home Phone [...] Team Providers + +------+ + | Care Signs Sales Representative Name | Role | Phone | + +------+ + | Justo Vazquez MD | PCP | | + +------+ + Reason for Visit + +--------+ + | Reason | Onset | Comments | | | Date | | + +--------+ + | Post-discharge | 12/28/ | | | follow-up | 2017 | | + +--------+ + Encounter Details +--------+ + + + + | Date | Type | Department | Care Team | Description | +--------+ + + + + | 12/28/ | Telephone | [facility] Ilene | Alex Sanchez, | Post-discharge | | 2018 | | Pain Center at | ,PhD [address] [facility] | follow-up | | | | [facility] | [facility] | | | | | [address] | [place], [place] | | | | | [facility] | [address] | | | | | and [place], | [phone] | | | | | Building | | | | | | Floor [place], [place] | | | | | | [address] | | | | | | [phone] | | | +--------+ + + + [...] encounter Miscellaneous Notes Telephone Encounter - Isadora Bergeron RN - 12/28/2017 5:22 PM PSTPatient called to justin head on patient condition post procedure. Patient reports sharp, achy pain on her left leg which is similar to her baseline pain. Pt states that she spoke with Dr Sanchez today and t hat she knows to call the Pain Building Cleaning Supervisor for any new concerns. Pt also educated to bring AVS to an urgent care or ED if further evaluation is needed for symptoms. Verbalize d understanding and agrees with plan of care. documented in this encounter Plan of Treatment Not on filedocumented as of this encounter Visit Diagnoses Not on filedocumented in this encounter"
--- OUTSIDE RECORDS SUMMARY | ~2020-08-23 | XMS | Encounter Summary ---
Demographics + + + | Address | [address] | | | [place] [address] | + + + | Home Phone [...] Providers + +------+ + | Care Correctional Corporal Name | Role | Phone | + [...] | | syndrome | [place] | [facility] | | | | | type [address] of | [address] | Rd [place], | | | | | left lower | [place], [place] | [place] | | | | | extremity | [address] | [address] | | | | | Procedures | Phone: | Phone: | | | | | REQUEST TO | [phone] | [phone] | | | | | SURGERY | Fax: | Fax: | | | | | DAY CARE DIRECTOR | [phone] | [phone] | +--------+---------+ + + + + Encounter Details +--------+---------+ + + + | Date | Type | Department | Care Team | Description | +--------+---------+ + + + | 09/28/ | Office | [facility] Comprehensive | Yun Frey, NEWSWRITER | Complex regional | | 2018 | Visit | Pain Center at | [address] | pain syndrome type 1 | | | | [place] | [place], [place] | of left lower | | | | [address] | [address] | extremity (Primary | | | | [facility] | [phone] | Dx); Arthralgia of | | | | and Healing, | | left lower leg | | | | | | | | | | [place], [place] | | | | | | [address] | | | | | | [phone] | | | +--------+---------+ + + + [...] in this encounter Patient Instructions Patient Instructions MarzenaDayana - 09/28/2018 12:05 PM PSTTracie, Thank you for taking the time to see us in the [facility]. It was great to s ee you. Below is a summary of the discussion that we had today: - Please keep your appointment with Dr. Sanchez on 10/02/2018. -Please contact the [email or web address]'s rep if you have any further question [...] of physical act ivity and social withdrawal [place], Yun Waller NP - 1 11/28/2017 12:05 PM PST September 28, 2018 Tracie Farah [id number] [facility] Comprehensive Pain Center Return Visit Chief Complaint: [...] and a pain drawing which I reviewed. [facility] Questionnaire Follow-up Patient 10/10/2017 Please describe [...] interfered with your sleep : 6 Alex Sacnhez MD, PhD last saw Tracie on 06/12/18. [...] DRG Spinal Cord Stimuation Trial with [employer] [place] system LEVEL/LATERALITY: left L4, L5. Till date, [...] turned up to 7%. After seeing th territory account representative today and killian ing adjustments, [...] What is the patient's average pain intensity? 10 (ii) Activities : How has the patient [...] Hemroidectomy Trial spinal cord stimulator leads 08/02/2012 [facility], Surgeon: Janak Riojas MD Cholecystectomy [...] the vein (IV) every eight hour s. 6650-3448-29 COMPOUNDED MED RX CONTROLLED (SEE ADMIN INSTRUCT [...] by physician. Concentration is 150mg/mL. Compounded by [employer] ( [phone]) KETOROLAC IM Inject into the muscle (IM). [...] (IV) every twel ve hours as needed. 5105-7219-59 ONDANSETRON 4 MG DISINTEGRATING TABLET Dissolve 1 [...] been given programming opti ons by the [employer]'s device territory account representative, Michele. At this time, there is no complication from the DRG trial. Recommendations/Plan: 1. Recommend to keep her appointment with Dr. Sanchez on 10/02/2018. 2. To contact the [email or web address]'s rep if she has any further question on programming. 09/28/2018: I, Dayana Sinit, am functioning as a medical assembly for Yun Frey NP. I have reviewed and verified the above scribed note of my visit with this patient as record ed by Ms. Dayana Ivan. Jeanine Tk (Mr.) MSN, [facility]- Nurse Practitioner Acute Pain Service /Comprehensive Pain Center [address] [place] [address] documented in this enco unter Plan of [...]
--- OUTSIDE RECORDS SUMMARY | ~2020-08-23 | XMS | Encounter Summary ---
Demographics + + + | Address | [address] | | | [place] [address] | + + + | Home Phone [...] Team Providers + +------+ + | Care Gift Packer Name | Role | Phone | + +------+ + | Justo Vazquez MD | PCP | | + +------+ + Reason for Visit + +--------+ + | Reason | Onset | Comments | | | Date | | + +--------+ + | Referral To | 01/11/ | discuss ortho appointment | | Orthopedics | 2018 | | + +--------+ + Encounter Details +--------+ + + + + | Date | Type | Department | Care Team | Description | +--------+ + + + + | 01/11/ | Telephone | [facility] Comprehensive | Alex Sanchez, | Referral To | | 2017 | | Pain Center at | ,PhD [address] | Orthopedics (discuss | | | | [facility] | [facility] [address] | ortho appointment) | | | | [address] | [place], [place] | | | | | [facility] | [address] | | | | | and Healing, | [phone] | | | | | | | | | | | Floor [place], [place] | | | | | | [address] | | | | | | [phone] | | | +--------+ + + + [...] this encounter Miscellaneous Notes Telephone Encounter - Huma Villatoro - 01/13/2018 1:41 PM PSTPatient states she missed a ca ll from our clinic, thinks it may have been Dr. Sanchez returning her call. Patient is reque sting a call back from Dr. Sanchez. elephone Encounter - Holly Mclaughlin MA - 01/12/2018 11:[address] Sanchez to call patient and discuss o rtho elephone Encounter - Paulina Alcala - 01/11/2018 1:48 PM PSTPatient is calling to let Dr. Sanchez know that the orthopedic surgeon that her referred her to called her to get schedule. But she didn't know if she can go ahead and schedule with them yet and Is wondering if he can call her to touch base with her on that situation before she proceeds to doing anything else. Please advise.El ectronically signed by Paulina Alcala at 01/11/2018 1:57 PM PSTdocumented in this encounter Plan of Treatment Not on filedocumented as of this encounter Visit Diagnoses Not on filedocumented in this encounter"
--- OUTSIDE RECORDS SUMMARY | ~2020-08-23 | XMS | Encounter Summary ---
Demographics + + + | Address | [address] | | | [place] [address] | + + + | Home Phone [...] Team Providers + +------+ + | Care Decorating Inspector Name | Role | Phone | + +------+ + | Justo Vazquez MD | PCP | | + +------+ + Encounter Details +--------+ + + + + | Date | Type | Department | Care Team | Description | +--------+ + + + + | 05/12/ | MyChart | Pain Center at [facility] | Ewa Melchor, | RE: Schedule change | | 2017 | Encounter | [address] | SCREW MACHINE ADJUSTER AUTOMATIC [address] | | | | | [place] for [facility] | [address] | | | | | and Healing, | [place] [address] | | | | | | [phone] | | | | | Floor [place], [place] | | | | | | [address] | | | | | | [phone] | | | +--------+ + + + [...]
--- OUTSIDE RECORDS SUMMARY | ~2020-08-23 | XMS | Encounter Summary ---
Demographics + + + | Address | [address] | | | [place] [address] | + + + | Home Phone [...] Providers + +------+ + | Care Dye Worker Name | Role | Phone | + +------+ + | Justo Vazquez MD | PCP | | + +------+ + Encounter Details +--------+ + + + + | Date | Type | Department | Care Team | Description | +--------+ + + + + | 03/17/ | MyChart | [facility] | Yun Frey NP | Welcome | | 2017 | Encounter | Pain Center at | [address] | | | | | [facility] | [place], [place] | | | | | [address] | [address] | | | | | [place] for [facility] | [phone] | | | | | and Healing, | | | | | | | | | | | | Floor [place], [place] | | | | | | [address] | | | | | | [phone] | | | +--------+ + + + [...]
--- OUTSIDE RECORDS SUMMARY | ~2020-08-23 | XMS | Encounter Summary ---
Demographics + + + | Address | [address] | | | [place] [address] | + + + | Home Phone [...] Providers + +------+ + | Care Educational Psychology Professor Name | Role | Phone | [...] Rd | | | | | | [place], [place] | | | | | | [address] | | | +--------+ + + + [...]
--- OUTSIDE RECORDS SUMMARY | ~2020-08-23 | XMS | Encounter Summary ---
Demographics + + + | Address | [address] | | | [place] [address] | + + + | Home Phone [...] Team Providers + +------+ + | Care Certified Nurses Aide Name | Role | Phone | [...] | | | | | Procedures | [place], [place] | | | | | | MR | [id number] | | | | | | ENTEROGRAPHY [...] | 2017 | Visit | Center at [facility] [address] | | unspecified location | | | | [address] [facility] | | (Primary Dx) | | | | for Health and | | | | | | Healing, Building [address] | | | | | | [place], [place] | | | | | | [address] | | | | | | [phone] | | | +--------+---------+ + + + [...] Kenny Gaspar Md - 01/11/2017 3:15 PM PSTPhiliprona Anika Sofi It was nice to see you in clinic today. Our plan for you is: 1) have ordered external urine and blood work to be drawn during a flare - check for porphy ellen, C1 esterase, heavy metal poisoning 2) MR enterography - [phone] to schedule 3) can increase miralax to 6 times per day Return to clinic in 3 months Please feel free to call our clinic with any questions. [phone] Kenny Gaspar MD Fellow, Division of Gastroenterology [...] n their attached note. Celia Lin MD Rn Maternitydirector of reimbursement Division of Gastroenterology & Hepatology [facility] Kenny Dodge Md - 2016 3:15 PM PST Gastroenterology Clinic Follow-Up Note 01/11/2017 CC/ID: Tracie Farah is a 26 F PMHx depression, complex regional pain syndrome(CRPS ) here for follow-up of n/v, abdominal pain INTERVAL HISTORY: Previously seen by Dr. Crabajal 08/10/16 - 10/2015 - hospitalized at [facility] for nausea/vomiting/pain -> [facility] -> CT [...] oral recon soln Take as directed by [facility]- 2 gallon bowel prep 8000 mL 0 [...] + + | Performing | Address | City/State[facility] | Phone Number | | Organization | [...]
--- OUTSIDE RECORDS SUMMARY | ~2020-08-23 | XMS | Encounter Summary ---
Demographics + + + | Address | [address] | | | [place] [address] | + + + | Home Phone [...] Team Providers + +------+ + | Care Jail Guard Name | Role | Phone | + +------+ + | Allegra Gandhi | PCP | | + +------+ + Encounter Details +--------+ + + + + | Date | Type | Department | Care Team | Description | +--------+ + + + + | 02/13/ | Outside | UNKNOWN DEPARTMENT | Other, Faculty | | | 2011 | Records | [address] [facility] | [phone] | | | | | [address] | | | | | | [place], [place] | | | | | | [address] | | | +--------+ + + + [...] documented as of this encounter Miscellaneous Notes Scan - Carmen Faculty - 02/07/2012 10:40 AM PDTElectronically signed by Anders Morales at 10:40 AM PDTdocumented in this encounter Plan of Treatment Not on filedocumented as of this encounter Visit Diagnoses Not on filedocumented in this encounter"
--- OUTSIDE RECORDS SUMMARY | ~2020-08-23 | XMS | Encounter Summary ---
Demographics + + + | Address | [address] | | | [place] [address] | + + + | Home Phone [...] Team Providers + +------+ + | Care Statistician Theoretical Name | Role | Phone | + [...] | | | | | Ave Mailcode: [facility] | [place], [place] | | | | | [facility] | [address] | | | | | Health and Healing, | [phone] | | | | | [place] [address] | | | | | | [place], [place] | | | | | | [address] | | | | | | [phone] | | | +--------+ + + + [...] + documented in this encounter Discharge Instructions Darlin Umanzor RN - 12/14/2016Home Care Instructions after Colonoscopy You may resume [...] the endoscopy department toll free ext. [phone] or After business hours or on weekends and holidays call the Hospital Distribution Center Manager toll free [phone] Ext. [phone] or and have the GI doctor picket labor union paged. The provider who performed your procedure [...] Farah is a 26 y.o. female MR# [id number] presents today for colonoscopy NPO since midnight [...] 8:18 | | | | | Starting Tue12/14/16 at 0807, | | AM PST | | | | | Until Tue12/14/16 at 0818 | | | | | [...] | | | 12/14/16 at 0815, Until Tue | | AM PST | [...]
--- OUTSIDE RECORDS SUMMARY | ~2020-08-23 | XMS | Encounter Summary ---
Demographics + + + | Address | [address] | | | [place] [address] | + + + | Home Phone [...] Providers + +------+ + | Care Chief Engineering Division Name | Role | Phone | + +------+ + | Justo Vazquez MD | PCP | | + +------+ + Encounter Details +--------+ + + + + | Date | Type | Department | Care Team | Description | +--------+ + + + + | 08/03/ | Telephone | [facility] | Alex Sanchez, | | | 2018 | | Pain Center at | ,PhD [address] | | | | | [facility] | [address] | | | | | [address] | [place], [place] | | | | | [place] for [facility] | [address] | | | | | and Healing, | [phone] | | | | | | | | | | | Floor [place], [place] | | | | | | [address] | | | | | | [phone] | | | +--------+ + + + [...] this encounter Miscellaneous Notes Telephone Encounter - Jamel Madden, PhD - 08/30/2018 12:30 PM PDTPSYCHOLOGY UPDATE: Tracie Farah is an appropriate candidate for a DRG stimulator. When I saw her for evaluation on 10/11/2017 she no psychological factors to contraindicate a stimulator. She has adequate intelligence and insight manage a device. She does not have psychological fact ors to contraindicate an invasive procedure or an implantable device. Jamel Madden, PhD [facility] 15TH FLOOR [address] [facility] Mail Code: [address] [address] [phone] signed by Jamel Madden, PhD at 08/30/2018 12:34 PM PDTTelephone Encounter - Paulina Alcala - 08/03/2018 3:51 PM PDTPatient is calling to see if we have rece ived the new Rx for her katamine 150 mg that her pharmacy Faiza Schreiber sent. Patient states she i s running out of her pain medication and is getting very nervous and wants Dr. Sanchez to kn ow that her insurance told her that it will not cover the Rx and for him to write another on e so she can get that medication covered?? Please review and advise documented in this encounter Plan of Treatment Not on filedocumented as of this encounter Visit Diagnoses Not on filedocumented in this encounter"
--- OUTSIDE RECORDS SUMMARY | ~2020-08-23 | XMS | Encounter Summary ---
Demographics + + + | Address | [address] | | | [place] [address] | + + + | Home Phone [...] Providers + +------+ + | Care General Cleaner Name | Role | Phone | + +------+ + | Justo Vazquez MD | PCP | | + +------+ + Encounter Details +--------+ + + + + | Date | Type | Department | Care Team | Description | +--------+ + + + + | 07/26/ | MyChart | [facility] Comprehensive | Ilene Bright, | Labs | | 2017 | Encounter | Pain Center at | AFLOAT CRYPTOLOGIC MANAGER [address] | | | | | [facility] | [place], [place] | | | | | [address] | [address] | | | | | [place] for [facility] | [phone] | | | | | and Healing, | | | | | | | | | | | | Floor [place], [place] | | | | | | [address] | | | | | | [phone] | | | +--------+ + + + [...] Telephone Encounter - [place] Bright FNP - 07/28/2017 2:04 PM PDTDiscussed with Tracie killian at I have not yet seen the results of her recent lab work. I provided my fax number and she is going to have the lab fax to me directly. We also discussed elimination diet vs. Low FODMAP diet. She will proceed with elimination d iet. I will reconnect with Tracie when I have received her results. Ilene Childs DNP, AFLOAT CRYPTOLOGIC MANAGER-C [facility] [address] [place] [address] documented in this e ncounter Plan of Treatment Not on filedocumented as of this encounter Visit Diagnoses Not on filedocumented in this encounter"
--- OUTSIDE RECORDS SUMMARY | ~2020-08-23 | XMS | Encounter Summary ---
Demographics + + + | Address | [address] | | | [place] [address] | + + + | Home Phone [...] Providers + +------+ + | Care Surgical Services Tech Name | Role | Phone | + +------+ + | Allegra Gandhi | PCP | | + +------+ + Reason for Visit + +--------+ + | Reason | Onset | Comments | | | Date | | + +--------+ + | Luis M Oliveira | 07/25/ | | | House - Approved | 2011 | | + +--------+ + Encounter Details +--------+ + + + + | Date | Type | Department | Care Team | Description | +--------+ + + + + | 07/25/ | Telephone | Case Management | Br[facility] Gonzalez | Luis M Oliveira | | 2011 | IP | [address] | | House - Approved | | | | [place], | | | | | | [place] [address] | | | +--------+ + + + [...] this encounter Miscellaneous Notes Telephone Encounter - Vivian Escudero - 07/25/2012 4:34 PM PDTGot call from Luis M Abdi [facility] asking to have Mom(Patricia Colin) of Pt be screened. Called and left message and she called me back. Did screening and passed. Faxed form to [facility]. documented in this encounter Plan of Treatment Not on filedocumented as of this encounter Visit Diagnoses Not on filedocumented in this encounter"
--- OUTSIDE RECORDS SUMMARY | ~2020-08-23 | XMS | Encounter Summary ---
Demographics + + + | Address | [address] | | | [place] [address] | + + + | Home Phone [...] Providers + +------+ + | Care Bag Adjuster Name | Role | Phone | [...] Pharmacy | | | | | | [address] | | | | | | [place], [place] | | | | | | [address] | | | | | | [phone] | | | +--------+ + + + [...]
--- OUTSIDE RECORDS SUMMARY | ~2020-08-23 | XMS | Encounter Summary ---
Demographics + + + | Address | [address] | | | [place] [address] | + + + | Home Phone [...] Team Providers + +------+ + | Care Truck Leasing Manager Name | Role | Phone | [...] | | Complex | Alex [place]ba, | [facility] [address] | | | | | regional | ,PhD [address] | Pavilion | | | | | pain | [address] | | | | | syndrome | [address] | [address], | | | | | type 1 of | Rd | Basement | | | | | left lower | [place], [place] | [place], [place] | | | | | extremity | [address] | [address] | | | | | Muscle pain | Phone: | Phone: | | | | | Procedures | [phone] | [phone] | | | | | NM BONE | Fax: | Fax: | | | | | &/OR JOINT | [phone] | [phone] | | | | | IMAGING | [...] | | | | | | NM BONE | | | | | | | IMAGING, | | | | | | | LIMITED AREA | | | | | | | NM BONE | | | | | | [...] | | 2018 | Encounter | at [facility] [address] | ,PhD [address] [facility] | | | | | [address] | [address] | | | | | [address], | [place], [place] | | | | | [facility], | [address] | | | | | [place] [address] | [phone] | | | | | [phone] | | | +--------+ + + + [...] discussed these findings | | personally with Dr.Sdrulla. This is not the typical appearance of [...]
--- OUTSIDE RECORDS SUMMARY | ~2020-08-23 | XMS | Encounter Summary ---
Demographics + + + | Address | [address] | | | [place] [address] | + + + | Home Phone [...] Team Providers + +------+ + | Care Driver/Merchandiser Name | Role | Phone | + +------+ + | Justo Vazquez MD | PCP | | + +------+ + Encounter Details +--------+ + + + + | Date | Type | Department | Care Team | Description | +--------+ + + + + | 03/23/ | MyChart | [facility] | Ilene Bright, | Welcome | | 2017 | Encounter | Pain Center at | AUDIO/VIDEO TECHNICIAN [address] | | | | | [facility] | [place], [place] | | | | | [address] | [address] | | | | | [place] for [facility] | [phone] | | | | | and Healing, | | | | | | | | | | | | Floor [place], [place] | | | | | | [address] | | | | | | [phone] | | | +--------+ + + + [...]
--- OUTSIDE RECORDS SUMMARY | ~2020-08-23 | XMS | Encounter Summary ---
Demographics + + + | Address | [address] | | | [place] [address] | + + + | Home Phone [...] Team Providers + +------+ + | Care Offset Machine Operator Name | Role | Phone [...] | | | | | Procedures | [place], [place] | | | | | | MR | [id number] | | | | | | ENTEROGRAPHY [...] | | | | | Procedures | [place], [place] | | | | | | MR | [address] | | | | | | ENTEROGRAPHY [...] | 2017 | Encounter | Services at [facility] | [address] | | | | | [address] | [place], [place] | | | | | [place] [address]don[address] [place] | [address] | | | | | [facility] | [phone] | | | | | [place], [place] | | | | | | [address] | | | | | | [phone] | | | +--------+ + + + [...] Note | + + | Service Account, CourseNetworking In Interface - 02/01/2017 3:50 PM PDT [...] | Deltoid | | ONCE, 1 dose, Tue01/31/17 at 1615 | | PM PDT | [...] | | | | | | Until 01/31/17 at 1608, | | | | | [...]
--- OUTSIDE RECORDS SUMMARY | ~2020-08-23 | XMS | Encounter Summary ---
Demographics + + + | Address | [address] | | | [place] [address] | + + + | Home Phone [...] Team Providers + +------+ + | Care Beveler Name | Role | Phone | + +------+ + | Justo Vazquez MD | PCP | | + +------+ + Encounter Details +--------+------+ + + + | Date | Type | Department | Care Team | Description | +--------+------+ + + + | 04/23/ | Lab | Laboratory at [facility] | | Other chronic pain ; | | 2018 | | [address] | | Complex regional | | | | Center for [facility] | | pain syndrome type 1 | | | | and Healing, | | of left lower | | | | Building 2 | | extremity | | | | [place], [place] | | | | | | [address] | | | | | | [phone] | | | +--------+------+ + + + [...] KEVIN SHAH | [address] | [place] [address] | | | SERVICES, CORE | PARK [...]
--- OUTSIDE RECORDS SUMMARY | ~2020-08-23 | XMS | Encounter Summary ---
Demographics + + + | Address | [address] | | | [place] [address] | + + + | Home Phone [...] Team Providers + +------+ + | Care Radar Repairer Name | Role | Phone | + +------+ + | Justo Vazquez MD | PCP | | + +------+ + Reason for Visit + +--------+ + | Reason | Onset | Comments | | | Date | | + +--------+ + | Question | 09/15/ | | | | 2018 | | + +--------+ + Encounter Details +--------+ + + + + | Date | Type | Department | Care Team | Description | +--------+ + + + + | 09/15/ | Telephone | [facility]ene | Alex Sanchez, | Question | | 2018 | | Pain Center at | MD,PhD [address] | | | | | [facility] | [address] | | | | | [address] | [place], [place] | | | | | [facility] | [address] | | | | | and [place], | [phone] | | | | | Building | | | | | | Floor [place], [place] | | | | | | [address] | | | | | | [phone] | | | +--------+ + + + [...] this encounter Miscellaneous Notes Telephone Encounter - Alex Sanchez MD,PhD - 10/01/2018 1:44 PM PSTI spoke to Tracie a bout her trial so far. She reports definite improvement, but continues to have sensitivity o n her foot. I am not sure if we can decide about proceeding with the implantation at this po int. We will extend the trial, she will come in next Tuesday. She asked about additional hydr ocodone for night time pain, and I will provide her with a modest amount. She will work with the [employer] on reprogramming during this extended trial. elephone Encounter - Olive Morgan MA - 2017 3:03 PM PSTPatient called again requesting a call to patient provider today (Tuesday11/19/2017) His number is [phone], which is the clinic where Dr. Sanchez can be connect ed with Dr. Boyle. They will not prescribe medication without speaking with him first. They requested a call back CHIP. Routed to provider elephone Encounter - Olive Morgan MA - 09/18/2018 3:05 PM PSTRou ruddy to provider to advise TTelephone Encounter - Vanessa Edmondson - 09/18/2018 2:00 PM PSTPatient calling again regarding same issue. Would like to know if it is possible for Sanjay Sanchez to call her provider tomorr ow. elephone Encounter - Sonia Magaña - 09/15/2018 2:28 PM PDTPatient has procedure coming up, with another provider. Her provider that is doing the procedure would like to speak with Dr. Sanchez about prescrib ing a medication (like valium) to give to the patient prior to that procedure. It is schedul ed for next week. The provider will be in the office on Tuesday, Dr. Boyle would like a call sometime on Tuesday if possible. His number is [phone], which is the clinic line, where he can get connected with Dr. Boyle. Patient is really concerned about this procedure, and mango alejo feels that she needs this medication, but they won't prescribe it without speaking to Dr. Sanchez first. Thank you Tdocumented in this encounter Plan of Treatment Not on filedocumented as of this encounter Visit Diagnoses + + | Diagnosis | + + | Complex regional pain syndrome type 1 of left lower extremity - Primary | + + documented in this encounter"
--- OUTSIDE RECORDS SUMMARY | ~2020-08-23 | XMS | Encounter Summary ---
Demographics + + + | Address | [address] | | | [place] [address] | + + + | Home Phone [...] Team Providers + +------+ + | Care Imaging Technologist Name | Role | Phone | + +------+ + | Justo Vazquez MD | PCP | | + +------+ + Encounter Details +--------+ + + + + | Date | Type | Department | Care Team | Description | +--------+ + + + + | 10/03/ | Telephone | [facility] | Ilene Bright, | | | 2017 | | Pain Center at | SALES VICE PRESIDENT [address] | | | | | [facility] | [place], [place] | | | | | [address] | [address] | | | | | [facility] | [phone] | | | | | and Healing, | | | | | | | | | | | | Floor [place], [place] | | | | | | [address] | | | | | | [phone] | | | +--------+ + + + [...]
--- OUTSIDE RECORDS SUMMARY | ~2020-08-23 | XMS | Encounter Summary ---
Demographics + + + | Address | [address] | | | [place] [address] | + + + | Home Phone [...] Team Providers + +------+ + | Care Renewable Energy Division Manager Name | Role | Phone | [...] | 2017 | | Center at [facility] [address] | | Review | | | | [facility] | | | | | | for Health and | | | | | | [facility] 2 | | | | | | [place], [place] | | | | | | [address] | | | | | | [phone] | | | +--------+ + + + [...]
--- OUTSIDE RECORDS SUMMARY | ~2020-08-23 | XMS | Encounter Summary ---
Demographics + + + | Address | [address] | | | [place] [address] | + + + | Home Phone [...] Team Providers + +------+ + | Care Shrimp Picker Name | Role | Phone | + +------+ + | Justo Vazquez MD | PCP | | + +------+ + Encounter Details +--------+ + + + + | Date | Type | Department | Care Team | Description | +--------+ + + + + | 01/02/ | Telephone | [facility] | Ilene Bright, | | | 2019 | | Pain Center at | ADMINISTRATION MANAGER [address] | | | | | [facility] | [place], [place] | | | | | [address] | [address] | | | | | [place] for [facility] | [phone] | | | | | and Healing, | | | | | | | | | | | | Floor [place], [place] | | | | | | [address] | | | | | | [phone] | | | +--------+ + + + [...] this encounter Miscellaneous Notes Telephone Encounter - Olive Morgan MA - 01/03/2019 3:28 PM PSTPer provider called and ad vised patient that the prescription that was given after procedure was for post operative pa in and would not be able to refill and that if patient still having pain to schedule follow up with provider. Patient requested PT referral for lumbar to [facility] in [facility]. elephone E julia - Vanessa Edmondson - 01/03/2019 10:32 AM PSTPatient calling again about refill for oxyco done please call patient back Telephone Encounter - Vanessa Reyna - 01/02/2019 4:18 PM PSTPatient is wanting to note th at if her Rx for oxycodone is sent today before 5:30 please send to [facility] in [place]. If after 5:30 please send to [facility] in [place]. Patient is also wanting to know if we can send a referral for physical therapy to [facility] in [place]. P STdocumented in this encounter Plan of Treatment Not on filedocumented as of this encounter Visit Diagnoses Not on filedocumented in this encounter"
--- OUTSIDE RECORDS SUMMARY | ~2020-08-23 | XMS | Encounter Summary ---
Demographics + + + | Address | [address] | | | [place] [address] | + + + | Home Phone [...] Team Providers + +------+ + | Care Hardware Sales Assistant Name | Role | Phone | + +------+ + | Justo Vazquez MD | PCP | | + +------+ + Encounter Details +--------+ + + + + | Date | Type | Department | Care Team | Description | +--------+ + + + + | 09/27/ | Telephone | [facility] | Ilene Bright, | | | 2017 | | Pain Center at | GARAGE ATTENDANT [address] | | | | | [facility] | [place], [place] | | | | | [address] | [address] | | | | | [place] for [facility] | [phone] | | | | | and Healing, | | | | | | | | | | | | Floor [place], [place] | | | | | | [address] | | | | | | [phone] | | | +--------+ + + + [...] this encounter Miscellaneous Notes Telephone Encounter - Tracie lOivas - 09/27/2017 3:00 PM PST Reason for Call: No chief complaint on file. Patient: Tracie Farah Contact Information: Home Phone Work Phone Message: Description of reason for call: Patient called to schedule trigger point injection with Dr. Gonzalez but there are no available appt's. Patient states that it is urgent and that she claritza ot wait until the schedule opens for November. Patient would like to know if she can be seen by a different provider in order to be seen sooner. Ideally she would like to be seen on when she is coming in for [facility]. I informed patient that that may not be possible but that I would check. Patient requests call back. Last Encounter with [facility]: Last Appointment in [facility] was on 09/20/17 [id number] 3:00 pm with TERESA Banuelos. Future Appointments: Next Appointment in [facility] is on 10/11/17 at 10:20 am with Jamel Madden, PhD. Patient's Preferred Pharmacy: Pharmacy Preferences: [facility] [address] [place] [address] Hours: 8am-9pm Mon-fri; 9-5:30pm Sat-sun E-Prescribing: Yes E-Prescribing Control Substances: Yes [facility] [facility] [place] [id number] Hours: 9am-9pm Mon-fri / 9am-7pm Sat / 10am-6pm Sun E-Prescribing: Yes E-Prescribing Control Substances: Yes [facility] #[id number] [address] [place] [address] Hours: 9am-7pm Mon-fri / 9am-6pm Sat / 10am-5pm Sun E-Prescribing: Yes E-Prescribing Control Substances: Yes documented in this encount er Plan of Treatment Not on filedocumented as of this encounter Visit Diagnoses Not on filedocumented in this encounter"
--- OUTSIDE RECORDS SUMMARY | ~2020-08-23 | XMS | Encounter Summary ---
Demographics + + + | Address | [address] | | | [place] [address] | + + + | Home Phone [...] Providers + +------+ + | Care Flash Developer Name | Role | Phone | + +------+ + | Justo Vazquez MD | PCP | | + +------+ + Reason for Visit + +--------+ + | Reason | Onset | Comments | | | Date | | + +--------+ + | Wound infection | 10/07/ | | | | 2017 | | + +--------+ + Encounter Details +--------+ + + + + | Date | Type | Department | Care Team | Description | +--------+ + + + + | 10/07/ | Telephone | [facility] | Yosef Kenney MD | Wound infection | | 2018 | | Pain Center at | [address] | | | | | [facility] | [address] [place], | | | | | [address] | [place] [address] | | | | | [place] for [facility] | [phone] | | | | | and Healing, | | | | | | Building | | | | | | Floor [place], [place] | | | | | | [address] | | | | | | [phone] | | | +--------+ + + + [...] this encounter Miscellaneous Notes Telephone Encounter - Yosef Kenney MD - 10/07/2018 9:[address] Tracie Spencer at [facility] regarding Tracie's evaluation. Tracie's entire dressing was soaked thr ough, brownish color, and foul smelling. He felt as though there was a cellulitis/wound infe ction. I asked him if he felt comfortable pulling the leads of the DRG stimulator trial, marian green he did after I talked him through it. If he has any trouble or feels as though the leads are not coming out with mild tension, he plans to cover the lead insertion site and Tracie wi ll drive to [facility] in the morning to be evaluated. Dr. Spencer plans on starting Tracie on anti biotics for a cellulitis/wound infection. Tracie has planned follow-up at the [facility] on Tuesday. I left her a voicemail to keep that appoi ntment. Dr. Sanchez and Dr. Mckinley ([facility] attending greenstone polisher operator) are aware. Yosef Kenney III, MD (Joe) Multidisciplinary Pain Fellow Department of Anesthesiology and Perioperative Medicine Pgr [phone] documented in this encou nter Plan of Treatment Not on filedocumented as of this encounter Visit Diagnoses Not on filedocumented in this encounter"
--- OUTSIDE RECORDS SUMMARY | ~2020-08-23 | XMS | Encounter Summary ---
Demographics + + + | Address | [address] | | | [place] [address] | + + + | Home Phone [...] Team Providers + +------+ + | Care Kiln Puller Name | Role | Phone | + [...] | | | | | Giuliana Maldonado [place], | | | | | | [place] [address] | | | +--------+ + + + [...]
--- OUTSIDE RECORDS SUMMARY | ~2020-08-23 | XMS | Encounter Summary ---
Demographics + + + | Address | [address] | | | [place] [address] | + + + | Home Phone [...] Team Providers + +------+ + | Care Wallpaper Printer Name | Role | Phone | [...] | | [facility] | [place], [place] | | | | | Health and Healing, | [address] | | | | | | [phone] | | | | | [place], [place] | | | | | | [address] | | | | | | [phone] | | | +--------+ + + + [...] + + | Performing | Address | City/State/[facility] | Phone Number | | Organization | | | | + +---------+ + + | [facility] | | | | | VOICE RECOGNITION | | | | + +---------+ + + documented in this encounter Visit Diagnoses + + | Diagnosis | + + | Left ankle pain, unspecified chronicity | + + documented in this encounter"
--- OUTSIDE RECORDS SUMMARY | ~2020-08-23 | XMS | Encounter Summary ---
Demographics + + + | Address | [address] | | | [place] [address] | + + + | Home Phone [...] Providers + +------+ + | Care Service Center Technician Name | Role | Phone | [...] | Orthopedics | Diagnoses | [place], | [place], | | | | | Complex | Alex Alba, | Ranjeet Odom MD | | | | | regional | ,PhD [address] | | | | | pain | [address] | | | | | syndrome | [place] | [place], [place] | | | | | type [address] | Rd | [address] | | | | | left lower | [place], [place] | Phone: | | | | | extremity | [address] | [phone] | | | | | Procedures | Phone: | Fax: | | | | | CONSULT TO | [phone] | [phone] | | | | | ORTHOPEDICS | Fax: | | | | | | AND | [phone] | | | | | | REHABILITATI | | | | | | | ON | | | +--------+--------+ + + + + Reason for Visit + +--------+ + | Reason | Onset | Comments | | | Date | | + +--------+ + | Imaging Review | 01/03/ | xray ankle results | | | 2017 | | + +--------+ + Encounter Details +--------+ + + + + | Date | Type | Department | Care Team | Description | +--------+ + + + + | 01/03/ | Telephone | [facility] | Alex Sanchez, | Imaging Review (xray | | 2018 | | Pain Center at | ,PhD [address] | ankle results) | | | | [facility] | [facility] [address] | | | | | [address] | [place], [place] | | | | | [facility] | [address] | | | | | and Healing, | [phone] | | | | | Building | | | | | | Floor [place], [place] | | | | | | [address] | | | | | | [phone] | | | +--------+ + + + [...] Telephone Encounter - Holly Edouard MA - 01/04/2018 9:32 AM PST2 @ 935 am, called [facility] Imaging department , report will be faxed to clinic and brandee stroud will be pushed into [employer]. VAHE LOPEZ Forwarded to Dr. Sanchez to review imaging once received. elephone Encounter - Sarah Alcalaa - 01/03/2018 1:39 PM P STPatient is calling to see if we have received her imaging; X-ray of the left ankle from [facility] in [facility] done 12.29.2017. Patient states that they told her t hey would send it but didn't know if we would receive it faxed or mailed?. But she would christina lexiy like to hear back from Dr. Sanchez once he seen it and so they can touch base about the results. documented in this en counter Plan of Treatment Not on filedocumented as of this encounter Visit Diagnoses + + | Diagnosis | + + | Complex regional pain syndrome type 1 of left lower extremity - Primary | + + documented in this encounter"
--- OUTSIDE RECORDS SUMMARY | ~2020-08-23 | XMS | Encounter Summary ---
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 Treatment for Ms. Sofi current pain complaint includes the following: Opioids: None Other analgesics: Ketamine ggt and Ketorolac Other psychoactive medications: Lamictal 200mg daily, Lorazepam 0.5mg q6 prn, Melatonin 3mg She does not feel that she has had effective therapy for this problem. Past Pain History: History of chronic or preoperative pain: yes: location: left ankle. Typical intensity 5/1 0. Hx of CRPS in the LLE following an injury at age 11 in which she sustained a fx and underw ent a fasciotomy and neurectomy. She's had multiple surgeries for her ankle and was seen sev eral times at [facility] for her CRPS. Underwent SCS trial with Dr. Riojas in 2011, never had final SCS implant Care for her CRPS is now by a neurology pain specialist Dr. Otero in [facility], she cont inues to be stable on her current pain regimen of intranasal ketamine, lamotrigine, memantin e, and ibuprofen. She also takes Lorazepam for Anxiety. Prior to hospitalization: No significant chronic use of opioids at home List of Medications during this hospitalization: Current Facility-Administered Medications Medication Dose Route Frequency Last Rate enoxaparin (LOVENOX) injection 40 mg 40 mg subcutaneous QPM lamoTRIgine (LAMICTAL) tablet 200 mg 200 mg oral DAILY magnesium citrate liquid 296 mL 296 mL oral ONCE omeprazole (PRILOSEC) capsule 20 mg 20 mg [...] % 50 mL IV infusion intravenous CONTINUOUS 1.25 mL/hr at 03/20/17 0744 Allergies Allergen Reactions Morphine Anaphylaxis Review of systems: General: Patient complains of weight loss. Eyes: Patient complains of negative. Respiratory: Patient complains of negative. Musculoskeletal: Patient complains of Hx of CRPS L ankle. Cardiovascular: Patient complains of negative. Gastrointestinal: Patient complains of abdominal pain to epigastrum quadrant, nausea, vom iting and constipation. Genitourinary: Patient complains of negative. Neurologic: Patient complains of CRPS neuropathic symptoms. Skin: Patient complains of negative. Psychological: Patient complains of depressive symptoms. Endocrine: Patient complains of involuntary weight loss. Allergic: Patient complains of negative. Spray Painter: Patient complains of deferred. Past Medical History: Past Medical History: Diagnosis Date Abdominal pain Ankle fracture, left Anxiety Compartment syndrome (HCC) Depression GERD (gastroesophageal reflux disease) Neuroma of lower extremity Other chronic pain Peroneal nerve injury Reflex sympathetic dystrophy of the lower limb Past Surgical History: Past Surgical History Procedure Laterality Date Tonsillectomy and adenoidectomy Ankle surgery x 9 Fasciotomy Neurectomy foot Nerve block 03/18/11 & 03/25/11 Left lumbar sympathetic ganglion block Hemroidectomy Trial spinal cord stimulator leads 08/02/2012 . [facility], Surgeon: Janak Riojas MD Cholecystectomy Appendectomy Other l ankle, port Neurectomy in 2004 Past Family History: Family History Problem Relation Alcohol/Drug Maternal Grandfather Allergies Maternal Grandfather Arthritis Maternal Grandfather Asthma Maternal Grandfather Stroke Maternal Grandfather Allergies Mother Headache Mother Hypertension Mother Allergies Father Hypertension Father Allergies Brother Arthritis Maternal Grandmother Headache Maternal Grandmother Arthritis Paternal Grandmother Diabetes Paternal Grandmother Arthritis Paternal Grandfather Asthma Brother Social History: Currently on full-time disability, has been since 2014. "I can't work like this." Labs: Lab Results Component Value Date WBC 8.87 03/18/2017 HB 12.9 03/18/2017 HCT 37.1 03/18/2017 PLT 267 03/18/2017 MCV 91.2 03/18/2017 RDW 37.7 03/18/2017 Lab Results Component Value Date NA 144 03/20/2017 K 3.8 03/20/2017 CL 109 (H) 03/20/2017 BICARB 27 03/20/2017 BUN 5 (L) 03/20/2017 CR 0.77 03/20/2017 GLU 119 (H) 03/20/2017 CA 7.8 (L) 03/20/2017 AST 9 03/18/2017 ALT 20 03/18/2017 TBILI 0.3 03/18/2017 TP 7.2 03/18/2017 ALB 4.0 03/18/2017 No results found for: APTT Radiology: 02/01/17: Unremarkable MR enterography. 03/19/17: Unremarkable abdominal plain films Physical Exam: BP 93/48 | Pulse 73 | Temp 36.6 C (97.9 F) | RR 18 | Ht 1.626 m (5' 4") | Wt 66.7 kg (1 47 lb 0.8 oz) | SpO2 98% | BMI 25.24 kg/(m^2) Systolic (24hrs), Av , Min:93 , Max:122 Diastolic (24hrs), Av, Min:48, Max:59 Pulse Min: 65 Max: 83 Temp Min: 36.3 C (97.3 F) Max: 36.9 C (98.4 F) Resp Min: 14 Max: 20 SpO2 Min: 97 % Max: 100 % General appearance: healthy, alert, mild distress and cooperative HEENT: Skin normal and Thyroid: normal Cardiovascular: Regular rate Chest: Effort normal, no use of accessory muscles Abdomen: tenderness present, marked and voluntary guarding epigastric and flat Musculoskeletal: no erythema, induration, or nodules and ROM of all joints is normal Extremities: LLE appears the same as RLE Neurological: grossly intact, VICTORIA Skin: negative Psych: depressed, she is tearful during our interview today when we discussed quality of l yevgeniy Lymphatic: deferred Impression: Tracie Farah is a 26 y.o. female with a chronic pain history remarkable for CRPS o f her LLE and functional abdominal pain syndrome NOS admitted for an acute episode of epigas tric abdominal pain, nausea, and vomiting. As for her CRPS Ms. Farah is seen and optimiz ed on an outpatient basis on a regimen that is working well for her which consists of intran anne ketamine, lamotrigine and memantine. Our pharmacy cannot verify her home intranasal Ket amine pump she brought with her and intranasal Ketamine is not available by the inpatient [facility], hence, we have started her on a Ketamine infusion to cover her CRPS pain while she i s in the hospital. Memantine should be discontinued during the time she is on the Ketamine i nfusion. All of her original medications she takes for CRPS should be continued once she is dc'd from the hospital. The source of her abdominal pain is still unclear. Agree with short course of Ketoralac as an inpatient as this seems to work for her. Given the adverse effects it has on the kidneys, however, this is not a alf solution. Would consider sending her out on a different NSAID such as Meloxicam. Recommend GI be consulted so they are aware she is in-house, especi ally since she is followed by them as an outpatient. Diagnosis: 1. Functional abdominal pain 2. Irritable Bowel Syndrome - Constipation predominant 3. CRPS Recommendations: 1. Continue Ketamine infusion to cover [...] page with any questions or concerns at [phone] Ni Rubio MD Associated attestation - Ulices Mckinley Md - 03/20/2017 11:28 AM PDTI saw and ev aluated Ms. Tracie Farah with Fellow Ni Rubio MD, who conducted the initial h istory and physical examination. I personally interviewed the patient and performed the pe rtinent parts of the physical examination. I have reviewed the fellow s note and I agree with the plan of care as documented. I do not have additional comments. Ulices Lopez MD BILLING INFORMATION [facility] DEPARTMENT: [phone] Place of Service:- Inpatient Date of Service: 03/20/2017 CSN: [id number] Suggested Modifier: GC - Resident Involved Suggested CPT: 45396 - Initial visit - 70 min - high complexity Prolonged service: n/a Counseling and Coordination: n/a documented in this encounter Miscellaneous Notes Plan of Care - Sarita Montero, CATHODE RAY TU[employer] SALVAGE PROCESSOR - 03/23/2017 2:51 PM PDTProblem: SW Goals & Inter ventions Goal: Connection to Community Resources Referral received from: SW received a referral from the primary team. Purpose of the Interview: Discuss mental health resources and assess for any additional nee ds. Current Living Situation: The pt currently lives with her parents in [place], [place]. Current Social Supports: Ms. Farah identifies several friends as a source of social supp ort. Financial/ Insurance status/ Employment/Education or Vocational training: The pt is current ly insured by Medicare [employer] and [employer]. The pt receives ~$640/month in SSDI benefits. Activities / Spirituality: The pt did not disclose to this SW. Medical issues: Per the pt's medical chart, the pt was admitted with the following concerns : 1) Pain of upper abdomen 2) Intractable cyclical vomiting with nausea 3) Constipation 4) CRPS (complex regional pain syndrome), lower limb PCP: The pt's PCP is Justo Vazquez. Mental health history: Ms. Farah states that she has never been diagnosed with a mental health disorder, but states that he doctors have stated that her mental health could be cont ributing to her medical issues (mostly her pain). She states that she suffered trauma ~5 yea rs ago, but did not go into detail. She has been in mental health counseling in the past, bu t would like to start again. SW agreed to provide the pt with resources. She denies any SI/H I at this time. Substance use History: The pt denies any substance use. Patient s understanding of Illness/ reason for hospitalization: Chronic pain. Patient s post hospital care plan: TBD. Likely d/c home. Community Agency Involvement: None noted at this time. Clinical Formulation: Per H&P by MD Venegas, "26 yo F with long pain history of CPRS from an injury at 12 yo, chronic n/v and abdominal pain being admitted for symptom control." SW met with the pt to discuss mental health resources and to assess for any additional needs. The p t was open and engaged with SW. She was very interested in mental health resources and appea red to be a great advocate for herself and her needs. She does not have a strong support sys tem through her family members at home, but does identify several friends as a significant s ource of emotional support, when needed. She denies any substance use, but does have a histo ry of trauma, which she believes could be contributing to her pain. Recommendations/Plans/Referrals: JAYDEN provided the pt with mental health counseling resources in the [place] area that accept Medicare, but options were limited due to her insurance. Resources were also added to the pt's AVS. The pt also has SW number in case she needs extra assistance. JAYDEN updated the bedside RN and the primary team. SW closing referral. No other S W needs were identified at this time. Please re-consult social work if any needs arise. JUSTIN Villeda, [facility] [employer] Molder Pager [phone] lan of Care - Almaz Ceravntes RN - 03/23/2017 2:29 PM PDTNursing Discharge Note Discharge Date: 03/23/2017 Additional Discharge Information: AVS signed by pt and placed in chart Written/signed prescriptions given to pt Transportation: home with friend (car) VSS/NAD order in Epic PAC deaccessed D/C pharmacist paged and reviewed AVS RN reviewed diet, activity, f/u apt Discharge Nurse: Almaz Cervantes RN lan of Care - Flavia Upton RD - 03/23/2017 7:01 AM PDTProblem: Nutrition Interventions Intervention: Food and nutrient distribution type or amount Late entry: took pt materials regarding FODMAP elimination diet. Pt will likely need OP fol low-up to do a trialed elimination. Will continue to follow as long as pt is here. See note from 03/21 for full assessment Following, Flavia Del Rosario MS, RD, LD Pager #: [phone] andoff - Shilpa Chavez RN - 03/23/2017 4:18 AM PDTNursing Handoff Patient Daily Goal: Good sleep (03/20/171999) [facility] IP NURSE HANDOFF: [facility] course events: Tracie was admitted from home 03/18 for rec urrent abdominal pain, worse in the last 9 days, associated with nausea/vomiting and dry hea ving. Pt states has been ongoing problem over last couple of years. Poorly managed as outpat ient, admitted for extensive workup and obs. Hx: Complex regional pain syndrome foot and leg, port-a-cath placed due to frequent need fo r IV pain meds in ED and sensitivity to needle pokes COMFORT/ANXIETY/BEHAVIOR Patient/Family Target: Tracie will be comfortable this shift AEB getting at least 6 hours of sleep. Progress to Target: Improving As evidenced by: Pain much improved to the point where Tracie feels she may be ready to go home today. For nausea, gets Compazine, Zofran, and Phenergan. Ativan also available for nausea/anxiety q6, but once ketamine gtt was started we tried to avoid it if not anxious. NURSING ASSESSMENT & RECOMMENDATIONS FORWARD Nursing Assessment of Patient Stability Risk: Moderately stable Recommendations Forward: --Pain and nausea control --Nasal Ketamine [place] removed from bedside and sent to pharmacy (security bag # [id number]) Plan: Possible dc today? Barriers to discharge: Needs plenty of notice to call for a ride from [place]. Nursing Handoff Patient Daily Goal: Good sleep (03/20/171999) [place] IP NURSE HANDOFF: [facility] hospital course events: Tracie was admitted from home 03/18 for rec urrent abdominal pain, worse in the last 9 days, associated with nausea/vomiting and dry hea ving. Pt states has been ongoing problem over last couple of years. Poorly managed as outpat ient, admitted for extensive workup and obs. Hx: Complex regional pain syndrome leg foot and leg, port-a-cath placed due to frequent nee d for IV pain meds in ED and sensitivity to needle pokes 5/6: Ketamine gtt started COMFORT/ANXIETY/BEHAVIOR Patient/Family Target: 1) Tracie will have pain at 4/10 or less during the day. 2) Tracie will have controlled nausea/GI distress Progress to Target: Improving As evidenced by: Tracie rated pain frequently a 5-6, improved compared to first night when she consistently rated pain 7-8. States that 0/10 pain is her acceptable level of pain due to frustration wi th chronic pain. Gets ketorolac q6h, on ketamine gtt currently titrated to 12.5 mg/hr but ca n go up to 40 mg/hr increasing dose 2.5 mg/hr every hour. Pt appeared more comfortable overn ight compared to her first night, however she was woken frequently for vitals d/t initiation of ketamine gtt. Bed alarm is on, pt is very good about calling for help OOB. For nausea, gets Compazine, Zofran, and Phenergan. Ativan also available for nausea/anxiety q6, but once ketamine gtt was started we tried to avoid it if not anxious. Overall nausea w as better controlled compared to her first night. NURSING ASSESSMENT & RECOMMENDATIONS FORWARD Nursing Assessment of Patient Stability Risk: Moderately unstable Recommendations Forward: --Pain and nausea control --Nasal Ketamine [place] removed from bedside and sent to pharmacy (security bag # [id number]) --Abd x-ray= minimal stool visualized, pt had Miralax at bedtime, endorses fecal urgency b ut mostly passing flatus only (has had poor PO intake aside from some fluids and russell crac kers) Barriers to discharge: Abd pain and nausea workup andoff - Eliseo Cervantes RN - 03/22/2017 7:10 PM PDTNursing Handoff Patient Daily Goal: Good sleep (03/20/171999) [facility] IP NURSE HANDOFF: [facility] hospital course events: Tracie was admitted from home 5/5 for rec urrent abdominal pain, worse in the last 9 days, associated with nausea/vomiting and dry hea ving. Pt states has been ongoing problem over last couple of years. Poorly managed as outpat ient, admitted for extensive workup and obs. Hx: Complex regional pain syndrome leg foot and leg, port-a-cath placed due to frequent nee d for IV pain meds in ED and sensitivity to needle pokes COMFORT/ANXIETY/BEHAVIOR Patient/Family Target: Tracie will be comfortable this shift AEB getting at least 6 hours of sleep. Progress to Target: Improving As evidenced by: Pain much improved today to the point where Tracie feels she may be ready to go home [facility]. For nausea, gets Compazine, Zofran, and Phenergan. Ativan also available for nausea/anxiety q6, but once ketamine gtt was started we tried to avoid it if not anxious. NURSING ASSESSMENT & RECOMMENDATIONS FORWARD Nursing Assessment of Patient Stability Risk: Moderately unstable Recommendations Forward: --Pain and nausea control --Nasal Ketamine [place] removed from bedside and sent to pharmacy (security bag # [id number]) Plan: Possible dc tomorrow? Barriers to discharge: Needs plenty of notice to call for a ride from [place]. Nursing Handoff Patient Daily Goal: Good sleep (03/20/171999) [facility] IP NURSE HANDOFF: [facility] hospital course events: Tracie was admitted from home /5 for rec urrent abdominal pain, worse in the last 9 days, associated with nausea/vomiting and dry hea ving. Pt states has been ongoing problem over last couple of years. Poorly managed as outpat ient, admitted for extensive workup and obs. Hx: Complex regional pain syndrome leg foot and leg, port-a-cath placed due to frequent nee d for IV pain meds in ED and sensitivity to needle pokes 5/6: Ketamine gtt started COMFORT/ANXIETY/BEHAVIOR Patient/Family Target: 1) Tracie will have pain at 4/10 or less during the day. 2) Tracie will have controlled nausea/GI distress Progress to Target: Improving As evidenced by: Tracie rated pain frequently a 5-6, improved compared to first night when she consistently rated pain 7-8. States that 0/10 pain is her acceptable level of pain due to frustration wi th chronic pain. Gets ketorolac q6h, on ketamine gtt currently titrated to 12.5 mg/hr but ca n go up to 40 mg/hr increasing dose 2.5 mg/hr every hour. Pt appeared more comfortable overn ight compared to her first night, however she was woken frequently for vitals d/t initiation of ketamine gtt. Bed alarm is on, pt is very good about calling for help OOB. For nausea, gets Compazine, Zofran, and Phenergan. Ativan also available for nausea/anxiety q6, but once ketamine gtt was started we tried to avoid it if not anxious. Overall nausea w as better controlled compared to her first night. NURSING ASSESSMENT & RECOMMENDATIONS FORWARD Nursing Assessment of Patient Stability Risk: Moderately unstable Recommendations Forward: --Pain and nausea control --Nasal Ketamine [place] removed from bedside and sent to pharmacy (security bag # [id number]) --Abd x-ray= minimal stool visualized, pt had Miralax at bedtime, endorses fecal urgency b ut mostly passing flatus only (has had poor PO intake aside from some fluids and russell crac kers) Barriers to discharge: Abd pain and nausea workup andoff - Isreal, Luh Torres RN - 03/22/2017 5:34 AM PDTNursing Handoff Patient Daily Goal: Good sleep (03/20/171999) [facility] IP NURSE HANDOFF: [facility] hospital course events: Tracie was admitted from home 03/18 for rec urrent abdominal pain, worse in the last 9 days, associated with nausea/vomiting and dry hea ving. Pt states has been ongoing problem over last couple of years. Poorly managed as outpat ient, admitted for extensive workup and obs. Hx: Complex regional pain syndrome leg foot and leg, port-a-cath placed due to frequent nee d for IV pain meds in ED and sensitivity to needle pokes 03/19: Ketamine gtt started COMFORT/ANXIETY/BEHAVIOR Patient/Family Target: Tracie will be comfortable this shift AEB getting at least 6 hours of sleep. Progress to Target: Improving As evidenced by: Tracie rated pain frequently a 7, worse after walking to the bathroom. Gets ketorolac q6h, on ketamine gtt currently titrated to 32.5 mg/hr but can go up to 40 mg/hr increasing dose 2.5 mg/hr every hour. For nausea, gets Compazine, Zofran, and Phenergan. Ativan also available for nausea/anxiety q6, but once ketamine gtt was started we tried to avoid it if not anxious. Unclear how we will transition her off the Ketamine Gtt as opoids are to be avoided and Ket amine Nasal [place] is a non-formulary. NURSING ASSESSMENT & RECOMMENDATIONS FORWARD Nursing Assessment of Patient Stability Risk: Moderately unstable Recommendations Forward: --Pain and nausea control --Nasal Ketamine [place] removed from bedside and sent to pharmacy (security bag # [id number]) Plan: Pain Consult today, Nutrition Consult tomorrow Barriers to discharge: Abd pain and nausea workup Nursing Handoff Patient Daily Goal: Good sleep (03/20/171999) [facility] IP NURSE HANDOFF: [facility] hospital course events: Tracie was admitted from home 03/18 for rec urrent abdominal pain, worse in the last 9 days, associated with nausea/vomiting and dry hea ving. Pt states has been ongoing problem over last couple of years. Poorly managed as outpat ient, admitted for extensive workup and obs. Hx: Complex regional pain syndrome leg foot and leg, port-a-cath placed due to frequent nee d for IV pain meds in ED and sensitivity to needle pokes 5/6: Ketamine gtt started COMFORT/ANXIETY/BEHAVIOR Patient/Family Target: 1) Tracie will have pain at 4/10 or less during the day. 2) Tracie will have controlled nausea/GI distress Progress to Target: Improving As evidenced by: Tracie rated pain frequently a 5-6, improved compared to first night when she consistently rated pain 7-8. States that 0/10 pain is her acceptable level of pain due to frustration wi th chronic pain. Gets ketorolac q6h, on ketamine gtt currently titrated to 12.5 mg/hr but ca n go up to 40 mg/hr increasing dose 2.5 mg/hr every hour. Pt appeared more comfortable overn ight compared to her first night, however she was woken frequently for vitals d/t initiation of ketamine gtt. Bed alarm is on, pt is very good about calling for help OOB. For nausea, gets Compazine, Zofran, and Phenergan. Ativan also available for nausea/anxiety q6, but once ketamine gtt was started we tried to avoid it if not anxious. Overall nausea w as better controlled compared to her first night. NURSING ASSESSMENT & RECOMMENDATIONS FORWARD Nursing Assessment of Patient Stability Risk: Moderately unstable Recommendations Forward: --Pain and nausea control --Nasal Ketamine [place] removed from bedside and sent to pharmacy (security bag # [id number]) --Abd x-ray= minimal stool visualized, pt had Miralax at bedtime, endorses fecal urgency b ut mostly passing flatus only (has had poor PO intake aside from some fluids and russell crac kers) Barriers to discharge: Abd pain and nausea workup andoff - Thun, And FORTUNATO vasquez - 03/21/2017 4:49 PM PDTNursing Handoff Patient Daily Goal: Good sleep (03/20/171999) [facility] IP NURSE HANDOFF: [facility] hospital course events: Tracie was admitted from home 03/18 for rec urrent abdominal pain, worse in the last 9 days, associated with nausea/vomiting and dry hea ving. Pt states has been ongoing problem over last couple of years. Poorly managed as outpat ient, admitted for extensive workup and obs. Hx: Complex regional pain syndrome leg foot and leg, port-a-cath placed due to frequent nee d for IV pain meds in ED and sensitivity to needle pokes 03/19: Ketamine gtt started COMFORT/ANXIETY/BEHAVIOR Patient/Family Target: Tracie will be comfortable this shift AEB getting at least 6 hours of sleep. Progress to Target: Improving As evidenced by: Tracie rated pain frequently a 7, worse after walking to the bathroom. Gets ketorolac q6h, on ketamine gtt currently titrated to 30 mg/hr but can go up to 40 mg/hr increasing dose 2. 5 mg/hr every hour. Last 50mL syringe started at 0620. For nausea, gets Compazine, Zofran, and Phenergan. Ativan also available for nausea/anxiety q6, but once ketamine gtt was started we tried to avoid it if not anxious. Plan: Pain Service following, Dietary Consult 03/21, possible GI Consult for IBS. Unclear how we will transition her off the Ketamine Gtt as opoids are to be avoided and Ketamine Marc al [place] is a non-formulary. NURSING ASSESSMENT & RECOMMENDATIONS FORWARD Nursing Assessment of Patient Stability Risk: Moderately unstable Recommendations Forward: --Pain and nausea control-Ketamine Gtt at 3ml/hr (30mg) --Nasal Ketamine [place] removed from bedside and sent to pharmacy (security bag # [id number]) Plan: Pain Service Following, Nutrition Consult today, possible GI Consult. Working towar ds transitioning to POs Barriers to discharge: Abd pain and nausea workup Nursing Handoff Patient Daily Goal: Good sleep (03/20/171999) [facility] IP NURSE HANDOFF: [facility] course events: Tracie was admitted from home 03/18 for rec urrent abdominal pain, worse in the last 9 days, associated with nausea/vomiting and dry hea ving. Pt states has been ongoing problem over last couple of years. Poorly managed as outpat ient, admitted for extensive workup and obs. Hx: Complex regional pain syndrome leg foot and leg, port-a-cath placed due to frequent nee d for IV pain meds in ED and sensitivity to needle pokes 03/19: Ketamine gtt started COMFORT/ANXIETY/BEHAVIOR Patient/Family Target: 1) Tracie will have pain at 4/10 or less during the day. 2) Tracie will have controlled nausea/GI distress Progress to Target: Improving As evidenced by: Tracie rated pain frequently a 5-6, improved compared to first night when she consistently rated pain 7-8. States that 0/10 pain is her acceptable level of pain due to frustration wi th chronic pain. Gets ketorolac q6h, on ketamine gtt currently titrated to 12.5 mg/hr but ca n go up to 40 mg/hr increasing dose 2.5 mg/hr every hour. Pt appeared more comfortable overn ight compared to her first night, however she was woken frequently for vitals d/t initiation of ketamine gtt. Bed alarm is on, pt is very good about calling for help OOB. For nausea, gets Compazine, Zofran, and Phenergan. Ativan also available for nausea/anxiety q6, but once ketamine gtt was started we tried to avoid it if not anxious. Overall nausea w as better controlled compared to her first night. NURSING ASSESSMENT & RECOMMENDATIONS FORWARD Nursing Assessment of Patient Stability Risk: Moderately unstable Recommendations Forward: --Pain and nausea control --Nasal Ketamine [place] removed from bedside and sent to pharmacy (security bag # [id number]) --Abd x-ray= minimal stool visualized, pt had Miralax at bedtime, endorses fecal urgency b ut mostly passing flatus only (has had poor PO intake aside from some fluids and russell crabrendan kers) Barriers to discharge: Abd pain and nausea workup lan of Care - Flavia Del Rosario RD - 03/21/2017 2:34 PM PDTProblem: Nutrition Interventions Intervention: Food and nutrient distribution type or amount Nutrition Assessment: Consult received. Pt admitted w/ severe abdominal pain. Pt has chronic issues w/ severe abd ominal pain, which tends to come in episodes of 3-4 weeks (per her report). Pt typically has more of an issue w/ constipation than w/ diarrhea. She reports that she has never tried any sort of elimination diet, nor has she noticed any type of food that exacerbates her symptom s. She states that when she starts to have pain, she will try to eat more bland foods (like crackers and broth), although this doesn't really help. She did admit that she has trouble s taying hydrated d/t not liking water. Pt states she has been told to follow a gastroparesis diet, a high fiber diet, and a low fiber diet at different times and thus does not really kn ow what diet she "should" follow. Let her know that it may be more trial and error than a sp ecific diet prescription. Pt states someone mentioned a FODMAP diet to her. It may be worth doing a FODMAP elimination diet w/ a controlled reintroduction phase to see if she notes any intolerances. However this is generally done outpatient and she would benefit from follow-u p with an outpatient RD. Ultimately, may not be an issue fixed by nutrition, but it could be beneficial to at least try elimination diets. Nutrition dx: Potential for inadequate intake rt abdominal pain Recs: - Continue regular diet - we do not have a low FODMAP diet in house - Will f/u to take her FODMAP materials as she is interested in trying this - Encourage po intake as tolerated - Monitor lytes, replete prn - Bowel regimen prn Goal of nutrition care: To preserve lean body mass Following, Flavia Del Rosario MS, RD, LD Pager #: [phone] Comments: Tracie Farah is a 26 yof h/o left ankle fracture c/b complex regional pain syndrom e, anxiety/depression who presents with recurrent abdominal pain and nausea of unknown etiol ogy. Food allergies/intolerances: none known Diet order: regular; PO: 30-100% of 3 meals/snacks yesterday Labs reviewed Meds reviewed GI: BMx9 yesterday Ht: 64" Admit Wt: 66.7 kg BMI: 25.24 kg/m2 Estimated needs: 1192-8161 kcal/day (25-30 kcal/kg); 67-100 g protein/day (1-1.5 g/kg) andoff - Brendan Bach RN - 03/21/2017 6:40 AM PDTNursing Handoff Patient Daily Goal: Good sleep (03/20/171999) [facility] IP NURSE HANDOFF: [facility] hospital course events: Tracie was admitted from home 03/18 for rec urrent abdominal pain, worse in the last 9 days, associated with nausea/vomiting and dry hea ving. Pt states has been ongoing problem over last couple of years. Poorly managed as outpat ient, admitted for extensive workup and obs. Hx: Complex regional pain syndrome leg foot and leg, port-a-cath placed due to frequent nee d for IV pain meds in ED and sensitivity to needle pokes 03/19: Ketamine gtt started COMFORT/ANXIETY/BEHAVIOR Patient/Family Target: Tracie will be comfortable this shift AEB getting at least 6 hours of sleep. Progress to Target: Improving As evidenced by: Tracie rated pain frequently a 7, worse after walking to the bathroom. Gets ketorolac q6h, on ketamine gtt currently titrated to 25 mg/hr but can go up to 40 mg/hr increasing dose 2. 5 mg/hr every hour. New 50mL syringe just started at 0620. For nausea, gets Compazine, Zofran, and Phenergan. Ativan also available for nausea/anxiety q6, but once ketamine gtt was started we tried to avoid it if not anxious. Plan: Pain Service following, Nutrition Consult 03/21, possible GI Consult for IBS. Unclear how we will transition her off the Ketamine Gtt as opoids are to be avoided and Ketamine Na miriam [place] is a non-formulary. NURSING ASSESSMENT & RECOMMENDATIONS FORWARD Nursing Assessment of Patient Stability Risk: Moderately unstable Recommendations Forward: --Pain and nausea control --Nasal Ketamine [place] removed from bedside and sent to pharmacy (security bag # [id number]) --Abd x-ray= minimal stool visualized, pt had Miralax at bedtime, endorses fecal urgency b ut mostly passing flatus only (has had poor PO intake aside from some fluids and russell crac kers) Plan: Pain Consult today, Nutrition Consult tomorrow Barriers to discharge: Abd pain and nausea workup Nursing Handoff Patient Daily Goal: Good sleep (03/20/171999) [facility] IP NURSE HANDOFF: [facility] hospital course events: Tracie was admitted from home 03/18 for rec urrent abdominal pain, worse in the last 9 days, associated with nausea/vomiting and dry hea ving. Pt states has been ongoing problem over last couple of years. Poorly managed as outpat ient, admitted for extensive workup and obs. Hx: Complex regional pain syndrome leg foot and leg, port-a-cath placed due to frequent nee d for IV pain meds in ED and sensitivity to needle pokes 03/19: Ketamine gtt started COMFORT/ANXIETY/BEHAVIOR Patient/Family Target: 1) Tracie will have pain at 4/10 or less during the day. 2) Tracie will have controlled nausea/GI distress Progress to Target: Improving As evidenced by: Tracie rated pain frequently a 5-6, improved compared to first night when she consistently rated pain 7-8. States that 0/10 pain is her acceptable level of pain due to frustration wi th chronic pain. Gets ketorolac q6h, on ketamine gtt currently titrated to 12.5 mg/hr but ca n go up to 40 mg/hr increasing dose 2.5 mg/hr every hour. Pt appeared more comfortable overn ight compared to her first night, however she was woken frequently for vitals d/t initiation of ketamine gtt. Bed alarm is on, pt is very good about calling for help OOB. For nausea, gets Compazine, Zofran, and Phenergan. Ativan also available for nausea/anxiety q6, but once ketamine gtt was started we tried to avoid it if not anxious. Overall nausea w as better controlled compared to her first night. NURSING ASSESSMENT & RECOMMENDATIONS FORWARD Nursing Assessment of Patient Stability Risk: Moderately unstable Recommendations Forward: --Pain and nausea control --Nasal Ketamine [place] removed from bedside and sent to pharmacy (security bag # [id number]) --Abd x-ray= minimal stool visualized, pt had Miralax at bedtime, endorses fecal urgency b ut mostly passing flatus only (has had poor PO intake aside from some fluids and russell crac kers) Barriers to discharge: Abd pain and nausea workup andoff - Thun, And FORTUNATO vasquez - 03/20/2017 8:02 AM PDTNursing Handoff Patient Daily Goal: Pain and nausea control (03/18/171924) [facility] IP NURSE HANDOFF: [facility] hospital course events: Tracie was admitted from home 03/18 for rec urrent abdominal pain, worse in the last 9 days, associated with nausea/vomiting and dry hea ving. Pt states has been ongoing problem over last couple of years. Poorly managed as outpat ient, admitted for extensive workup and obs. Hx: Complex regional pain syndrome leg foot and leg, port-a-cath placed due to frequent nee d for IV pain meds in ED and sensitivity to needle pokes 03/19: Ketamine gtt started COMFORT/ANXIETY/BEHAVIOR Patient/Family Target: 1) Tracie will have pain at 4/10 or less during the day. 2) Tracie will have controlled nausea/GI distress Progress to Target: Improving As evidenced by: Tracie rated pain frequently a 5-6, improved compared to first night when she consistently rated pain 7-8. States that 0/10 pain is her acceptable level of pain due to frustration wi th chronic pain. Gets ketorolac q6h, on ketamine gtt currently titrated to 20 mg/hr but can go up to 40 mg/hr increasing dose 2.5 mg/hr every hour. Pt appears more comfortable today-is tolerating moderate sized meals and was off the drip to shower. For nausea, gets Compazine, Zofran, and Phenergan. Ativan also available for nausea/anxiety q6, but once ketamine gtt was started we tried to avoid it if not anxious. Plan: Pain Service following, Nutrition Consult 03/21, possible GI Consult for IBS. Unclear how we will transition her off the Ketamine Gtt as opoids are to be avoided and Ketamine Na miriam [place] is a non-formulary. NURSING ASSESSMENT & RECOMMENDATIONS FORWARD Nursing Assessment of Patient Stability Risk: Moderately unstable Recommendations Forward: --Pain and nausea control --Nasal Ketamine [place] removed from bedside and sent to pharmacy (security bag # [id number]) --Abd x-ray= minimal stool visualized, pt had Miralax at bedtime, endorses fecal urgency b ut mostly passing flatus only (has had poor PO intake aside from some fluids and russell crac kers) Plan: Pain Consult today, Nutrition Consult tomorrow Barriers to discharge: Abd pain and nausea workup Nursing Handoff Patient Daily Goal: Pain and nausea control (03/18/171924) [facility] IP NURSE HANDOFF: [facility] hospital course events: Tracie was admitted from home 03/18 for rec urrent abdominal pain, worse in the last 9 days, associated with nausea/vomiting and dry hea ving. Pt states has been ongoing problem over last couple of years. Poorly managed as outpat ient, admitted for extensive workup and obs. Hx: Complex regional pain syndrome leg foot and leg, port-a-cath placed due to frequent nee d for IV pain meds in ED and sensitivity to needle pokes 56: Ketamine gtt started COMFORT/ANXIETY/BEHAVIOR Patient/Family Target: 1) Tracie will have pain at 4/10 or less during the day. 2) Tracie will have controlled nausea/GI distress Progress to Target: Improving As evidenced by: Tracie rated pain frequently a 5-6, improved compared to first night when she consistently rated pain 7-8. States that 0/10 pain is her acceptable level of pain due to frustration wi th chronic pain. Gets ketorolac q6h, on ketamine gtt currently titrated to 12.5 mg/hr but ca n go up to 40 mg/hr increasing dose 2.5 mg/hr every hour. Pt appeared more comfortable overn ight compared to her first night, however she was woken frequently for vitals d/t initiation of ketamine gtt. Bed alarm is on, pt is very good about calling for help OOB. For nausea, gets Compazine, Zofran, and Phenergan. Ativan also available for nausea/anxiety q6, but once ketamine gtt was started we tried to avoid it if not anxious. Overall nausea w as better controlled compared to her first night. NURSING ASSESSMENT & RECOMMENDATIONS FORWARD Nursing Assessment of Patient Stability Risk: Moderately unstable Recommendations Forward: --Pain and nausea control --Nasal Ketamine [place] removed from bedside and sent to pharmacy (security bag # [id number]) --Abd x-ray= minimal stool visualized, pt had Miralax at bedtime, endorses fecal urgency b ut mostly passing flatus only (has had poor PO intake aside from some fluids and russell crac kers) Barriers to discharge: Abd pain and nausea workup andoff - Jessica Reyna RN - 03/20/2017 5:45 AM PDTNursing Handoff Patient Daily Goal: Pain and nausea control (03/18/171924) [facility] IP NURSE HANDOFF: [facility] hospital course events: Tracie was admitted from home 03/18 for rec urrent abdominal pain, worse in the last 9 days, associated with nausea/vomiting and dry hea ving. Pt states has been ongoing problem over last couple of years. Poorly managed as outpat ient, admitted for extensive workup and obs. Hx: Complex regional pain syndrome leg foot and leg, port-a-cath placed due to frequent nee d for IV pain meds in ED and sensitivity to needle pokes 03/19: Ketamine gtt started COMFORT/ANXIETY/BEHAVIOR Patient/Family Target: 1) Tracie will have pain at 4/10 or less during the day. 2) Tracie will have controlled nausea/GI distress Progress to Target: Improving As evidenced by: Tracie rated pain frequently a 5-6, improved compared to first night when she consistently rated pain 7-8. States that 0/10 pain is her acceptable level of pain due to frustration wi th chronic pain. Gets ketorolac q6h, on ketamine gtt currently titrated to 12.5 mg/hr but ca n go up to 40 mg/hr increasing dose 2.5 mg/hr every hour. Pt appeared more comfortable overn ight compared to her first night, however she was woken frequently for vitals d/t initiation of ketamine gtt. Bed alarm is on, pt is very good about calling for help OOB. For nausea, gets Compazine, Zofran, and Phenergan. Ativan also available for nausea/anxiety q6, but once ketamine gtt was started we tried to avoid it if not anxious. Overall nausea w as better controlled compared to her first night. NURSING ASSESSMENT & RECOMMENDATIONS FORWARD Nursing Assessment of Patient Stability Risk: Moderately unstable Recommendations Forward: --Pain and nausea control --Nasal Ketamine [place] removed from bedside and sent to pharmacy (security bag # [id number]) --Abd x-ray= minimal stool visualized, pt had Miralax at bedtime, endorses fecal urgency b ut mostly passing flatus only (has had poor PO intake aside from some fluids and russell crac kers) Barriers to discharge: Abd pain and nausea workup andoff - David, Rogelio urrutia RN - 03/19/2017 7:52 AM PDTNursing Handoff Patient Daily Goal: Pain and nausea control (03/18/171924) [facility] IP NURSE HANDOFF: [facility] hospital course events: Tracie was admitted from home 03/18 for rec urrent abdominal pain, worse in the last 9 days, associated with nausea/vomiting and dry hea ving. Pt states has been ongoing problem over last couple of years. Poorly managed as outpat ient, admitted for extensive workup and obs. Hx: Complex regional pain syndrome leg foot and leg, port-a-cath placed due to frequent nee d for IV pain meds in ED and sensitivity to needle pokes COMFORT/ANXIETY/BEHAVIOR Patient/Family Target: 1) Tracie will have pain at 4/10 or less during the day. 2) Tracie will have controlled nausea Progress to Target: No Change As evidenced by: Tracie rated pain frequently a 7, states that 0/10 pain is her acceptable level of pain du e to frustration with chronic pain. Heat packs have been helpful, takes ketorolac as outpati ent with typically good results until recently. For nausea, given dose of ondansetron, prochlorperazine and lorazepam. Helps temporarily, p t sleeps between care, but frequently wakes feeling nauseous. NURSING ASSESSMENT & RECOMMENDATIONS FORWARD Nursing Assessment of Patient Stability Risk: Moderately unstable Recommendations Forward: Pain and nausea control Barriers to discharge: Abd pain workup Abd x-ray= minimal stool visualized, pt has had Mg Citrate+Mirlax today Has had about 6 B Ms today so far providing minimal relief or change in pain Pt agreeable to try Ketamine Gtt if given Ativan prior. Pt with prior memory of "shooting pain" with IV Ketamine. Nasal [place] removed from bedside and sent to pharmacy (security bag # [id number]) andoff - Jessica Reyna RN - 03/19/2017 3:25 AM PDTNursing Handoff Patient Daily Goal: Pain and nausea control (03/18/171924) [facility] IP NURSE HANDOFF: [facility] hospital course events: Tracie was admitted from home 03/18 for rec urrent abdominal pain, worse in the last 9 days, associated with nausea/vomiting and dry hea ving. Pt states has been ongoing problem over last couple of years. Poorly managed as outpat ient, admitted for extensive workup and obs. Hx: Complex regional pain syndrome leg foot and leg, port-a-cath placed due to frequent nee d for IV pain meds in ED and sensitivity to needle pokes COMFORT/ANXIETY/BEHAVIOR Patient/Family Target: 1) Tracie will have pain at 4/10 or less during the day. 2) Tracie will have controlled nausea Progress to Target: No Change As evidenced by: Overnight, Tracie rated pain frequently a 7, states that 0/10 pain is her acceptable level of pain due to frustration with chronic pain. Heat packs have been helpful, takes ketorolac as outpatient with typically good results until recently. Has prn ketorolac IV available. T ylenol suppository also available, pt would consider this if ketorolac not due. Also given M aalox overnight Frequent dry heaving at start of shift, given dose of ondansetron, prochlorperazine and keri azepam. Helps temporarily, pt sleeps between care, but frequently wakes feeling nauseous. NURSING ASSESSMENT & RECOMMENDATIONS FORWARD Nursing Assessment of Patient Stability Risk: Moderately unstable Recommendations Forward: Pain and nausea control Barriers to discharge: Abd pain workup Abd x-ray ransfer Note - Zeeshan Delgado MD - 03/18/2017 1:32 PM PDTINPATIENT MEDICINE DIRECT ADMISSION FROM THE [facility] Hospitalist Attending Author: Zeeshan Bush MD PCP: Justo Vazquez MD [address] [place] / [place] [address] FAX: [phone] Referring Physician: Ramy Nath MD Referring Site (or [facility] Service): [facility] Specialists involved: Jefferson Nath MD, GI Fellow Reason for Transfer/Admission: Recurrent abdominal pain Floor or ICU Request: Floor, admit inpatient obs HPI/PMH/Exam: Tracie is a 26 yo woman undergoing an extensive w/u for recurrent abdominal pa in. Has had recurrent hospitalizations. Usually associated w/ constipation, this episode isn t. Have been trying to manage her pain w/ ketorolac, Ativan. Not responsive to multiple l ocal ED visits. Mostly feels like they need to escalate to inpatient work up as failing outp t managment. Keeping most food down but may need IV fluids. Current Vitals: Pertinent Studies: Pt at home Procedures: none Code Status: full Other Isolation/Care Issues: Telemetry: no Isolation no VRE: no MRSA no C. difficile no Tuberculosis no Other (droplet, neutropenia, etc): no Patient Plant Health Care Technician (Sitter): no Morbid Obesity and Imaging: - Disposition: (accepted or declined) accepted Required Studies (reminder to ask referring site to send): Problem List: 1. Recurrent abdominal pain and vomiting 2. Recommendations: 1. Accept for direct admission, inpatient obs 2. Clerical reminders: I have updated the PCP in [employer] (if able): I have signed this patient over to: Admitting resident I have placed the patient s name on [employer] Expected documented in this e ncounter Plan of [...] | + +--------+ + + + | [facility] ONLY | Urgent | 03/18/2017 | | [...] | | | LABORATORY | | | ENGLISH | | | SERVICES, | | | [...] | + + + + + | [facility] | [address] | [place] [address] | | | SERVICES, CORE | [address] [...] | | | LABORATORY | | | ENGLISH | | | SERVICES, | | | [...] | + + + + + | [facility] | [address] | [place] [address] | | | SERVICES, CORE | [address] | | | + + + + + X-RAY ABDOMEN 1 VIEW (03/19/2017 6:52 AM PDT) + + | Specimen | + + | | + + + + + | Narrative | Performed At | + + + | EXAM: ABDOMEN 1 VIEW HISTORY: Nausea, vomiting. Evaluate for | [facility] | | constipation/stool burden. COMPARISON: MR arthrography [...] Note | + + | Service Account, [facility] In Interface - 03/19/2017 8:59 AM [...] | | + +---------+ + + | [facility] RADIOLOGY | | | | [...] + + + + + + | [facility] | [address] | ms | [facility] [...] | + + + + + | [facility] | [address] | [place], [place] | | | CARDIOLOGY | [address] | [address] | | + + + + + [...] [facility] | [address] | [place] [address] | | | SERVICES, CORE | [address] [...] + | [facility] | [address] | [place] [address] | | | SERVICES, CORE | [address] [...] 5-6 weeks | | | 850 - 63174 6-7 weeks | | | 4000 - [id number] 7-12 weeks | | | 43490 - [id number] 12-16 weeks | | | 99653 - 990502 16-29 | | | weeks 1400 - 70227 | | | 29-41 weeks 940 - 57476 | | | | | + + + + + + + + | Performing | Address | City/State/Zipcode | Phone Number | | Organization | | | | + + + + + | [facility] | [address] | [place] [address] | | | SERVICES, CORE | [address] [...] | | | LABORATORY | | | ENGLISH | | | SERVICES, | | | [...] | + + + + + | [facility] | [address] | [place] [address] | | | SERVICES, LILLIAN | [address] [...] | [facility] | | | GRAVITY | Kerens performed by | | LABORATORY | | [...] [facility] | [address] | [place] [address] | | | SERVICES, CORE | [address] [...] of lower limb | + + | Constipation | + + documented in this encounter [...] | | | | | 1 dose, [facility] 03/18/17 at 2145 | | PM PDT | | | | + +-------+ +-------+---+---+ +---+---+ | | | +---+---+ + +-------+ +-------+---+---+ | ketorolac (TORADOL) injection | Given | 03/19/20 | 15 mg | | | | 15 mg 15 mg, intravenous, ONCE, | | 17 4:30 | | | | | 1 dose, [facility] 03/19/17 at 0430 | | AM PDT [...] | | | | | NEEDED, Starting 03/21/17 at | | PM PDT | | [...] | | | 1214, Until Tue03/23/17 at 2052, | | | [...] 2:06 | | | | | Starting Tu03/22/17 at 1350, | | PM PDT | [...] | | | | at 2052, nausea/vomiting, first | | | | | [...] AM PDT | | | | | 5/6/17 at 1850, Until Tue03/23/17 | | | [...] 03/19/17 at | | | 0506, Until Tue03/23/17 at 2051, | | | constipation | [...]
--- OUTSIDE RECORDS SUMMARY | ~2020-08-23 | XMS | Encounter Summary ---
Demographics + + + | Address | [address] | | | [place] [address] | + + + | Home Phone [...] Team Providers + +------+ + | Care Metaphysics Teacher Name | Role | Phone | + +------+ + | Justo Vazquez MD | PCP | | + +------+ + Reason for Visit +--------+--------+ + | Reason | Onset | Comments | | | Date | | +--------+--------+ + | Pain | 03/28/ | | | | 2016 | | +--------+--------+ + Encounter Details +--------+ + + + + | Date | Type | Department | Care Team | Description | +--------+ + + + + | 03/28/ | Telephone | [facility] | Kenny Gaspar MD | Pain | | 2016 | | Center at [facility] [address] | | | | | | [address] [facility] | | | | | | for Health and | | | | | | [facility] [address] | | | | | | [place], [place] | | | | | | [address] | | | | | | [phone] | | | +--------+ + + + [...] this encounter Miscellaneous Notes Telephone Encounter - Tala Burns RN - 04/07/2017 11:44 AM PDTSpoke with Tracie about recommendations below. Flexaril was what she took yesterday, not clonazepam as she had stated. She says her PCP do esn't prescribe pain meds, he is part of a walk in clinic. Advised her to seek out PCP that can do this, as this seems to be important medications in her treatment. She acknowledges th is, though it is hard for her to find providers with her insurance. Let her know that Dr. Gaspar doesn't usually prescribe medication like Flexaril. Briefly discu ssed the challenges of intermittent pain and coping mechanisms. She went to her local ED this morning, got a shot of toradol which is still in effect now, so she is feeling okay at this time. Reinforced that she should continue the medication plan we have discussed previously. She is thankful for our continued support. ----- Message ----- From: Kenny Gaspar MD Sent: 04/07/2017 7:30 AM To: Tala Corrales RN Please let her know that clonazepam and lorazepam are from the same drug family, so I would not take those together. If it is helpful, I am not against her having a short course of c lonazepam, but this is not something that I am comfortable or familiar with prescribing. Sh e should talk to her PCP about this.Electronically signed by Tala Burns RN at 017 12:05 PM PDTTelephone Encounter - Dorita Barros - 04/06/2017 11:28 AM PDTPatient abisai bolton wanting to know speak with medical staff to see if there are any adjustments that can be made to help her pain. She stated she stopped taking the meloxicam and started taking the toradol with hyoscyamine and that helped her "decently." She stated she also took lorazepam which did not end up hel ping her. Tracie took a clonazepam (that she had from a previous prescription) along with the toradol and the hyoscyamine. She stated that helped her a lot with the pain and she was able to rela x her body and let it rest. She would like to know if Dr. Gaspar would be willing to write her a prescription for clonazep am. She felt like it really helped her deal with the pain. She is worried that with the cons tant vomiting her stomach and back muscles are cramping and in spasm and it puts her in too much pain to relax and let her body heal. She felt as if the clonazepam really helped her to relax and lowered her pain to a manageable level to get some rest. She stated the constant pain and vomiting are causing her anxiety and she is starting to chowdhury ve breakdowns because nothing seems to be helping. Tracie requests a call back from medical staff to discuss options. Please follow up. el ephone Encounter - Tala Burns RN - 04/04/2017 4:[address]TDiscussed with lane Contreras ay to fill 5 day ketorolac Rx given at hospital discharge, discussed risk of renal toxicity. Meloxicam or toradol, either one can be taken 5 days a time, but should not be taken at the same time. Discussed with Tracie. She clarified she had taken the meloxicam x2 days without a noticeabl e response. She had taken toradol PO x1 day (she had had extra pills from before) and felt t his helped her pain much more. She is taking hyoscyamine q4h with some improvement in sympto ms. Instructed not to take ketorolac and meloxicam together. She has not filled Cymbalta prescription. I again encouraged her to fill this Rx, as it can help with her pain and other symptoms. I suggested she take this to the pharmacy when she p icks up her ketorolac Rx today. She is agreeable to plan. I called pharmacy and spoke to Pharmacist, verbal okay to fill ketorolac prescription given . elephone Encounter - Tala Burns RN - 04/04/2017 2:06 PM PDTSpoke with Tracie, she is requesting ketoro lac PO Rx be sent to her pharmacy. Over the weekend she has been taking meloxicam daily, hyoscyamine prn and ketorolac prn (chowdhury d some left over from previous prescription). She feels that hyoscyamine and ketorolac were helping somewhat, and that she didn't notice a difference with the meloxicam. Her abdominal pain continues, as high as 7/10 at times. She has been able to go to work wit h the pain. She has a prescription for a 5 day supply of ketorolac that was given to her upon hospital DC, and she has tried to fill this at her pharmacy. Her pharmacist ([place]) will not fill it a t this time, citing concern for her kidney function. She is asking for us to call the [facility] and okay the fill of medication, and asks about further refills in the future. Hospital discharge summary notes that plan is for ketorolac to be DC'd (due to concern for renal injury), and meloxicam/hyoscyamine to be used instead. Let her know I would update Dr. Gaspar on how she has been doing with the medication over the weekend and get back to her toda y with a response. She is agreeable to the plan. elephone Encounter - Tala Burns RN - 04/01/2017 2:03 P M PDTSpoke with Grecia about Dr. Gaspar's question about duloxetine (Cymbalta). She has the pap er prescription, has not filled it yet. She will do so today when she picks up meloxicam Rx. No further questions at this time. 17 2:07 PM PDTTelephone Encounter - aTla Burns RN - 04/01/2017 9:33 AM PDTSpoke morgan Hodges, she is wanting to review the plan for pain management. Reviewed DC summary plan li amy below. I called the pharmacy, meloxicam is ready for her to apple picker. Hyoscyamine needs PA per cecelia rao staff (have not received faxed documentation yet). Will ask HUGH Muir to follow up. Tracie will work to avoid constipation by staying on her bowel regimen, continued nasal rama mine for pain syndrome, take meloxicam as needed. She was unable to secure counseling appointment due to insurance not covering it and not be ing able to pay out of pocket. Hospital DC summary plan 03/23/17: -discontinue toradol as needed (for concern of renal injury) -start meloxicam as needed in settings of acute flares, not to use more than 1 week at a ti me filled at pharmacy -start hyoscyamine 0.125mg po qid in setting of flares needs PA per pharmacy -follow up with [facility] GI for treatment of IBS-C after discharge -follow up with [facility] for intake to manage chronic abdominal pain after discharg e (had missed 03/23 appointment as still hospitalized, but will present for rescheduled appoi ntment on 03/31/2017). Pain clinic cancelled 03/31 appt due to "scheduling error." Now resched uled for 04/25/17. el ephone Encounter - Cynthia Pizano - 04/01/2017 9:20 AM PDTpt calling regarding symptoms. Have you recently had a procedure no, surgery no or hepatitis C treatment? no Pt has flare up pain that started yesterday and getting worse. Is this new or a change for you? Yes Is this symptom causing you pain?Yes 04/23 Patient requests call back to discuss. Is it alright to leave a detailed message? Yes elephone Encounter - Tala Watkins RN - 03/28/2017 1:52 PM PDTSpoke with Tracie after hospital discharge. She s tates she is doing well, her pain is controlled. She is looking forward to her Pain Clinic a ppointment on this week. She has no questions at this time. Plan for her to call us to check in after pain clinic appointment and update us on how she is doing. -------- DC from hospital 03/23/17. DC summary selection: discussed non-pharmacologic measures including FODMAPS diet, exercise and therapy for known psychosocial stressors. She met with SW to discuss payment for non-pharmacologic therapies . Patient was discharged to home to follow up with GI and Pain Clinic as outpatient after i mprovement of pain and transition from home oral toradol to meloxicam prn and start hyoscyam ine in episodes of acute flares. -discontinue toradol as needed (for concern of renal injury) -start meloxicam as needed in settings of acute flares, not to use more than 1 week at a ti me -start hyoscyamine 0.125mg po qid in setting of flares -follow up with [facility] GI for treatment of IBS-C after discharge -follow up with [facility] for intake to manage chronic abdominal pain after discharg e (had missed 03/23 appointment as still hospitalized, but will present for rescheduled appoi ntment on 03/31/2017). Tdocumented in this encounter Plan of Treatment Not on filedocumented as of this encounter Visit Diagnoses Not on filedocumented in this encounter
--- OUTSIDE RECORDS SUMMARY | ~2020-08-23 | XMS | Encounter Summary ---
Demographics + + + | Address | [address] | | | [place] [address] | + + + | Home Phone [...] Providers + +------+ + | Care Hotel Attendant Name | Role | Phone | + +------+ + | Justo Vazquez MD | PCP | | + +------+ + Encounter Details +--------+ + + + + | Date | Type | Department | Care Team | Description | +--------+ + + + + | 12/12/ | Telephone | [facility] | Alex Sanchez, | | | 2019 | | Pain Center at | ,PhD [address] | | | | | [facility] | [address] | | | | | [address] | [place], [place] | | | | | [place] for [facility] | [address] | | | | | and Healing, | [phone] | | | | | | | | | | | Floor [place], [place] | | | | | | [address] | | | | | | [phone] | | | +--------+ + + + [...] encounter Miscellaneous Notes Telephone Encounter - Tracie Olivas - 12/14/2018 2:46 PM PSTDoes patient have confidentia l voicemail so we can leave detailed messages?: Yes Reason for call: Patient called again in regards to Rx for Oxycodone 10mg. Patient states Parth Krishnan wrote the Rx for her for the first week after SCS. Patient states her pharmac y is not open over the weekend and that she will be out of her medication by Tuesday, so peter patel needs the Rx filled by tomorrow 12/15. Please get in touch with patient prior to the end of the day Friday 12/15. Prescription refill? Yes If yes: Name of Medication: Oxycodone 10 mg Preferred pharmacy? [facility] in [place], [place] Please type Name of pharmacy and general location, for example "[facility]". This is required so MA and Provider know where to send the refill. Medication concerns? Yes (side effects, dosage change request, etc) Refill request Recent Procedure: Yes Concern from recent procedure? See above elephone Encounter - Smita Aguirre MA - 12/13/2018 5:24 PM PSTRouting telephone encounter to Dr. Sanchez to sunni veliz medication refill advice. elephone Encounter - Vanessa Edmondson - 12/12/2018 3:41 PM PSTPatient states after her S CS with bridget she was give medication and she still has to take them non stop and will run out on Tuesday and would like a refill of medication because she is still in pain after gonzales rgery and would like to have refill so she doesn't run out. Please call patient back doc umented in this encounter Plan of Treatment Not on filedocumented as of this encounter Visit Diagnoses + + | Diagnosis | + + | Complex regional pain syndrome type 1 of left lower extremity - Primary | + + | S/P insertion of spinal cord stimulator | + + documented in this encounter
--- OUTSIDE RECORDS SUMMARY | ~2020-08-23 | XMS | Encounter Summary ---
Demographics + + + | Address | [address] | | | [place] [address] | + + + | Home Phone [...] + +------+ + | Care Retail Sales Director Name | Role | Phone | + +------+ + | Justo Vazquez MD | PCP | | + +------+ + Encounter Details +--------+ + + + + | Date | Type | Department | Care Team | Description | +--------+ + + + + | 03/18/ | Telephone | [facility] | Kenny Gaspar MD | | | 2017 | | [place] [address] [address] | | | | | | [address] [facility] | | | | | | for Health and | | | | | | [facility], [address] | | | | | | [place], [place] | | | | | | [address] | | | | | | [phone] | | | +--------+ + + + [...] Telephone Encounter - Isadora Eller MA - 03/18/2017 3:12 PM PDTToradol denied by [facility] merida. Alternatives include: ibuprofen, ketopregen, meloxicam, naproxen, and naproxen sodium. This information isn't relevant due to pt picking up her medication and paying out of [place]. elephone Encounter - Tala Burns RN - 03/18/2017 12:54 PM PDTContacted bed control and registration to [facility] up admission. They will call Tracie when the bed is ready. Spoke with Tracie and let her know, provided her with bed control phone number so she can ch jose ramon in on status of bed. She is not wanting to leave until she knows the bed is available, a s she doesn't have anywhere to stay in town. I advised her to call bed control soon and ofte n, perhaps they can forecast when a bed is available. She confirms she will have someone lul ve her to [facility]. ele phone Encounter - Clifton Nath MD - 03/18/2017 12:26 PM PDTI am the covering physician for Dr Gaspar, this patient's outpatient GI provider. I was able to contact him via telephone and discuss the patient. Due to PA issues the patient has not been able to receive her out patient meds (toradol/ativan) until the last 24 hours. She is in one of her flares of abdom inal pain, lasting ~ 8 days. It is non responsive to 3 doses of oral ativan and one dose of oral toradol. The patient has visited her local ED 3 times for this with IV med administra tion, brief improvement and discharge. We would suggest an inpatient admission at this time for IV pain control and bowel regimen. Please see Dr Gaspar's notes (telephone 03/07 and offic e visit 01/11/17) for more complete history ad prior workup. Paged [id number] medicine admit page r to discuss admission. Suggested steps: Responsive to IV dilaudid and ativan in the past Assess bowel habit and consider strong regimen such as golytely prep or mag citrate Contact sanitation worker hosing machinery GI fellow when patient arrives, or in AM if patient admitted overnightElect ronically signed by Clifton Nath MD at 03/18/2017 12:46 PM PDTTelephone Encounter - Tala Watkins RN - 03/18/2017 12:02 PM PDTSpoke with Tracie, she is feeling her pain is unm anageable at home and wants to discuss inpatient admission. Tracie has taken 1 dose of toradol today (she just picked up the medication today). She pick ed up the ativan yesterday and has taken 3 doses appropriately (q6h). We discussed that the previous plan had been for her to try oral medications for 2-3 days at home if possible. She doesn't feel she can take more time to do this, and needs relief from pain. She feels "fed up," the pain started 8 days ago. She will wait for call back before leaving home to come to [facility] - [address] Let her kno w I would discuss with covering physician and call her back. elephone Encounter - Buzz Gibbs MA - 03/18/2017 11:57 AM PDTPt called in stating she took her meds oral Toradol and ativan about 1.5 hrs ag o and still is having a lot. Currently pain is 7/10 on pain scale to abd, back and up into her chest. C/o n/v, fevers. Transferred call to RN. Electronically signed by Buzz Gibbs MA at 0 03/18/2017 12:02 PM PDTTelephone Encounter - Isadora Eller MA - 03/18/2017 11:49 [facility] additional information for pts PA. Information faxed to number provided.Elect ronshwetha signed by Isadora lEler MA at 03/18/2017 11:49 AM PDTTelephone Encounter - Tala Burns RN - 03/18/2017 11:06 AM PDTSpoke with Tracie, she has picked up the toradol fro m the pharmacy. She has just taken the first dose a few minutes ago, and is anxious for it t o start working. We discussed previous plan from Dr. Gaspar - she will try this short course of toradol and ati van (she now has both medications at home). If this does not work, and her pain is so debili tating, she may need to be admitted (see 03/07/17 encounter for details of plan). She will continue with oral medication regimen at home, if she feels her pain isn't control led she will call GI Fellow on-call this weekend to discuss admission, per previous conversa tion with Dr. Gaspar. I will route message to GI Fellow sanitation worker hosing machinery this weekend for a heads up. documented in this encounter Plan of Treatment Not on filedocumented as of this encounter Visit Diagnoses Not on filedocumented in this encounter
--- OUTSIDE RECORDS SUMMARY | ~2020-08-23 | XMS | Encounter Summary ---
Demographics + + + | Address | [address] | | | [place] [address] | + + + | Home Phone [...] Team Providers + +------+ + | Care Motor Setter Name | Role | Phone | + +------+ + | Justo Vazquez MD | PCP | | + +------+ + Encounter Details +--------+ + + + + | Date | Type | Department | Care Team | Description | +--------+ + + + + | 01/12/ | Telephone | [facility] | Kenny Gaspar MD | | | 2016 | | [place] [address] [address] | | | | | | [address] [facility] | | | | | | for Health and | | | | | | [facility], [address] | | | | | | [place], [place] | | | | | | [address] | | | | | | [phone] | | | +--------+ + + + [...] Telephone Encounter - Isadora Eller MA - 01/21/2017 10:47 AM PSTI called and s/w radiolog y. To change to general we will need to change the date completely and the pt would have to skip drinking the contrast and Dr. Gaspar would have to talk with the radiologist ahead of time to make sure they don't stop the procedure if they disagree. Given that pt doesn't want to change dates, IV ativan seems to be the best option. elephone Encounter - Kenny Gaspar Md - 01/20/2017 7:08 PM PSTNi gómez - have you ever set up general anesthesia? I'm not sure what is required. Also cc'in nimco Edgar in case she can help with this. I've put in a new MRE order with general anesth esia. Let's figure out who to ask to see if they can do it on the same day? If they can NO T do it on the same day, please let Tracie know if she wishes to arrange for a different day vs keep same day and try with IV ativan. Let me know how I can facilitate. elephone Encounter - Kenny Gaspar Md - 01/18 5:05 PM PSTNicole - I sent her a mychart. Can you follow-up with her response? Unfo rtunately as you know, I'm away from [facility] for the next 4 weeks so can only check my inbasket about 1x/day at most. Feel free to e-mail me to figure out details. Thanks for coordinati ng. elephone Encounter - Isadora Garcia MA - 01/17/2017 3:49 PM PSTI called and s/w Tracie. The date we have set for he r is very important. If she can keep the same date but have deeper sedation she would greatl y prefer that. If not, the largest amount we can give her would be best. She already has a r shawn assigned for this. Pt has had to use ativan in the past for many dental procedures and f eels she has built a tolerance to it. Will call her back once I know which direction we'll n eed to go in. Pt is very appreciative of the help with this. elephone Encounter - Kenny Gaspar Md - 01/14/2017 4:34 PM PSTWe can order some ativan tablets for her for anxiety. This would be my first suggesti on. If she has tried this before and it hasn't worked and wants IV sedatives, that will hav e to be done with anesthesia, which will take some time to set-up. elephone Encounter - Isadora Eller MA - 01/12/2017 12:46 PM PSTRouting to MD P STTelephone Encounter - Ly Wilkins - 01/12/2017 12:34 PM PSTPatient calling to r equest a sedative be ordered for her MRI to be administered intravenously because she is ext remely claustrophobic and the MRI is head first. Please follow up. TTelephone Encounter - Isadora Eller MA - 01/12/2017 9:[address] Noel smith fax [phone]. Mychart to pt letting her know these are sent to the hospital. I do worry that the outside hospital may lose the record if too much time lapse. Will offer to mail her a copy of them as well so she could have them on her when she goes to the lab i n case this should happen. elephone Encounter - Isadora Eller MA - 01/12/2017 9:57 AM PST----- Message from Maria Luisa Gaspar MD sent at 01/11/2017 10:32 PM PST ----- Regarding: External labs Isadora Cortez ordered external blood and urine labs, which Tracie should have drawn when she has a flare - to be done at [facility], can you help coordinate? Thanks, Emery documented in thi s encounter Plan of Treatment Not on filedocumented as of this encounter Visit Diagnoses + + | Diagnosis | + + | Weight loss - Primary Loss of weight | + + documented in this encounter"
--- OUTSIDE RECORDS SUMMARY | ~2020-08-23 | XMS | Encounter Summary ---
Demographics + + + | Address | [address] | | | [place] [address] | + + + | Home Phone [...] Team Providers + +------+ + | Care Structural Metal Worker Name | Role | Phone | + +------+ + | Justo Vazquez MD | PCP | | + +------+ + Encounter Details +--------+ + + + + | Date | Type | Department | Care Team | Description | +--------+ + + + + | 06/04/ | Documentati | [facility] | Alex Sanchez, | | | 2019 | on | Pain Center at | ,PhD [address] | | | | | [facility] | [address] | | | | | [address] | [place], [place] | | | | | [place] for [facility] | [address] | | | | | and Healing, | [phone] | | | | | | | | | | | Floor [place], [place] | | | | | | [address] | | | | | | [phone] | | | +--------+ + + + [...]
--- OUTSIDE RECORDS SUMMARY | ~2020-08-23 | XMS | Encounter Summary ---
Demographics + + + | Address | [address] | | | [place] [address] | + + + | Home Phone [...] Team Providers + +------+ + | Care Slate Worker Name | Role | Phone | [...]
--- OUTSIDE RECORDS SUMMARY | ~2020-08-23 | XMS | Encounter Summary ---
Demographics + + + | Address | [address] | | | [place] [address] | + + + | Home Phone | | + + + | Preferred Language | Unknown | + + + | Marital Status | Single | + + + | Oriental Orthodox Affiliation | 1073 | + + + | Race | White | + + + | Ethnic Group | Not or | + + + Author + + + | Author | [facility] | | | and [place] | + + + | Organization | [facility] | | [...] [place] | | | | | [address] | | + + + + + | Bryant Farah | ECON | Unknown | | + + + + + Care Team Providers + +------+ + | Care Metal Work Duct Installer Name | Role | Phone | + +------+ + PCP | Unavailable | + +------+ + Encounter Details +--------+ + + + + | Date | Type | Department | Care Team | Description | +--------+ + + + + | 06/24/ | Hospital | [facility] | | | | 1998 | Encounter | MED CTR XRAY [address] | | | | | | [address] | | | | | | [place] [address] | | | | | | [phone] | | | +--------+ + + + [...]
--- OUTSIDE RECORDS SUMMARY | ~2020-08-23 | XMS | Encounter Summary ---
Demographics + + + | Address | [address] | | | [place] [address] | + + + | Home Phone [...] Providers + +------+ + | Care Gift Shop Assistant Name | Role | Phone | [...] JAYDEN [address]valle | | | | | [facility] | [address] | | | | | [address] | [place], [place] | | | | | [place] for [facility] | [address] | | | | | and Healing, | [phone] | | | | | | | | | | | Floor [place], [place] | | | | | | [address] | | | | | | [phone] | | | +--------+ + + + [...] this encounter Miscellaneous Notes Telephone Encounter - Estefany March MA - 04/11/2019 3:34 PM PDTPatient placed on waitlist. elephone Encounter - Estefany Valle MA - 04/03/2019 2:[address] Sanchez 12/26/18 Oxycodone refill denied: refill not appropriate 10/09/18 chart note: Recommendation/Plan: - Recommend DRG SCS implant with the [place] system, ordered - Call us if skin allergic reaction does not continue to heal or becomes worse. elephone Encounter - Paulina Orantes - 04/03/2019 11:38 AM PDTPatient is calling to say that her ketorolac tromethamin e (KETOROLAC IM) medication is giving her stomach flare ups and doesn't want to keep on aylin stroud if it keeps giving her those symptoms patient is wondering if Dr. Sanchez can get her squ eezed in for an early office visit to discuss what she should do in an emergency since if sh e goes to the ER in [facility] where she lives "they have told her flat out that they will ju st send her home since they don't know how to help her" So if Dr. Sanchez can call her back to recommend anything else for her so she can take some thing else. Patient is aware of our medication policy. But states that her PCP is not able t o help her and is not sure what she can do before she can come in. documented in this encounter Plan of Treatment Not on filedocumented as of this encounter Visit Diagnoses Not on filedocumented in this encounter
--- OUTSIDE RECORDS SUMMARY | ~2020-08-23 | XMS | Encounter Summary ---
Demographics + + + | Address | [address] | | | [place] [address] | + + + | Home Phone [...] Team Providers + +------+ + | Care Epidemiology Investigator Name | Role | Phone | + +------+ + | Justo Vazquez MD | PCP | | + +------+ + Reason for Visit + +--------+ + | Reason | Onset | Comments | | | Date | | + +--------+ + | Referral | 04/25/ | ortho denied | | | 2018 | | + +--------+ + Encounter Details +--------+ + + + + | Date | Type | Department | Care Team | Description | +--------+ + + + + | 04/25/ | Telephone | [facility] | Alex Sanchez, | Referral (ortho | | 2018 | | Pain Center at | ,PhD [address] | denied) | | | | [facility] | [facility] | | | | | [address] | [place], [place] | | | | | [facility] | [address] | | | | | and Healing, | [phone] | | | | | | | | | | | Floor [place], [place] | | | | | | [address] | | | | | | [phone] | | | +--------+ + + + [...] Telephone Encounter - Holly Edouard MA - 04/25/2018 5:03 PM PDTNoted. Patient will need t o follow up in clinic. e anni Encounter - Paulina Alcala - 04/25/2018 4:05 PM PDTKelly from [facility] states that from her providers after medical review from the referral order placed by Dr. Sanchez for patient is declining the referral "due to them unable to assist patient with what was diagnose'? An d since patient declined to see her former Pt Dr. Martinez they wont be able to offer anythi ng to patient and is letting Dr. Sanchez know so he can follow-up with the patient.Kiesha fortune signed by Paulina Alcala at 04/25/2018 4:26 PM PDTdocumented in this encounter Plan of Treatment Not on filedocumented as of this encounter Visit Diagnoses Not on filedocumented in this encounter
--- OUTSIDE RECORDS SUMMARY | ~2020-08-23 | XMS | Encounter Summary ---
Demographics + + + | Address | [address] | | | [place] [address] | + + + | Home Phone [...] Team Providers + +------+ + | Care Quotation Checker Name | Role | Phone | + +------+ + | Justo Vazquez MD | PCP | | + +------+ + Reason for Visit + +--------+ + | Reason | Onset | Comments | | | Date | | + +--------+ + | Vomiting | 06/20/ | | | | 2016 | | + +--------+ + | Constipation | 06/20/ | | | | 2016 | | + +--------+ + | Abdominal pain | 06/20/ | | | | 2016 | | + +--------+ + Encounter Details +--------+ + + + + | Date | Type | Department | Care Team | Description | +--------+ + + + + | 06/20/ | Telephone | Digestive Health | Kenny Gaspar MD | Vomiting; | | 2017 | | Center at [facility] [address] | | Constipation; | | | | [address] [facility] | | Abdominal pain | | | | for Health and | | | | | | Healing, [address] | | | | | | [place], [place] | | | | | | [address] | | | | | | [phone] | | | +--------+ + + + [...] this encounter Miscellaneous Notes Telephone Encounter - Obdulio Thompson - 02/02/2019 8:33 AM PDTThis encounter has been admin istratively closed with the authorization of the HIC Committee. elephone Encounter - Kenny Gaspar Md - 06/21/2017 4:48 PM PDTSpoke with José Miguel Hodges has been going on for about 23 days now. Was hospitalized at [facility] for 4 day s in May, was feeling OK for 2 days and then. Was discharged from hospital 06/10 with a pre scription for IM toradol. Taking for last 3 days Currently on zofran, phenergan, promethazine for nausea. When she tries to take miralax or drink anything will vomit. Very lethargic. On Lyrica for last 2-3 weeks. Stopped duloxetine after 1 week because she wanted to try th e Lyrica first. Also taking flexeril, which helps a little bit Was having regular bowel movements before the flare started, but not since then. Discussed with Ilene Childs, may have opening for appointment this 06/23 1:05PM, would like to reassess, consider trigger point injection. She will have her office call Reynold nguyen to schedule tomorrow. I then discussed this with Tracie, she requested [facility] admission now for pain control. She i s worried that she is getting dehydrated and can not tolerate the pain any more. We discuss ed that this could be done locally at [facility], as they can provide the same services álvaro patel can without her driving 4 hours. She is interested in following up with pain management zenia solorio for long-term options. Telephone Encounter - Hubert Odonnell - 06/21/2017 1:10 PM PDTPatient called in stating that she had not heard back from RN and was seeking to speak to her. Under legal entity controller that she is waiting for response from And will call patient as soon as she has more information. Patient understands and will await call elephone Encounter - Tala Burns RN - 06/20/2017 12:09 PM PDTSpoke with Tracie about her severe pain and continued symptoms. Hx: Chronic abdominal pain, exacerbated by constipation, depression, complex regional pain syndrome(CRPS), fibromyalgia. This current exacerbation of pain has been ongoing for 23 days. Currently describes her abdominal pain as excruciating and unable to carry on with ADL's. She just talked to PCP's office and they requested she check with us and and see about dire ct admit to [facility]. We had previously arranged this on 03/18/17-03/23/17. Had inpatient pain c ontrol and discharged with plan to follow up in pain clinic. Tracie did see pain clinic 04/25/17 with this listed as the plan:Recommendation/Plan: #1 Continue Flexeril #2 Try Pregabalin (Will send note to Justo Vazquez MD) #[address] Santacruz (pain psychology) #4 Follow up with me after Dr. Santacruz #5 May consider injection into scar in the future #6 Resources: The Fibro Manual, by Freddie Guadalupe MD [email or web address] Toradol shots at home "aren't cutting it anymore" for the pain. She can drink and then it causes a lot of pain. Laxative medications are hard to get down a nd she is feeling more constipated. She is requesting direct admit to [facility] for pain control, as she feels her local hospital is not taking care of things for her. Let her know Dr. Gaspar is out today, would discuss with covering MD or possibly have to wait until tomorrow to discuss with Dr. Gaspar. Discussed ED return precautions in the meantime, she indicates understanding. elephone Encounter - Dorita Barros - 06/20/2017 11:11 AM PDTPatient calling regarding symptoms. Have you recently had a procedure no, surgery no or hepatitis C treatment? no Pt has she has been having a flair up of her symptoms since about 05/27. She stated she has been hospitalized a few times at [facility] in [place] but they keep telling her to [facility] her provider and that they cannot keep hospitalizing her. She stated she is in excruciatin g pain. She is vomiting and has difficulty keeping liquids down. She states because she is v omiting it is difficult to take her medications since she often vomits after taking them. Sh jorge is quite constipated because she is unable to take her medications that help. Is this new or a change for you? No Is this symptom causing you pain?Yes 8.03/23 Patient requests call back to discuss. Is it alright to leave a detailed message? Yes Parris'valdemar RN, per RN: she will call the patient back to discuss symptoms. Relayed message to patient. She stated understanding and will wait for a call back. Electro nically signed by Dorita Barros at 06/20/2017 11:14 AM PDTdocumented in this encounter Plan of Treatment Not on filedocumented as of this encounter Visit Diagnoses Not on filedocumented in this encounter
--- OUTSIDE RECORDS SUMMARY | ~2020-08-23 | XMS | Encounter Summary ---
Demographics + + + | Address | [address] | | | [place] [address] | + + + | Home Phone [...] Providers + +------+ + | Care Meat Grader Name | Role | Phone | + +------+ + | Justo Vazquez MD | PCP | | + +------+ + Encounter Details +--------+ + + + + | Date | Type | Department | Care Team | Description | +--------+ + + + + | 07/28/ | Documentati | [facility] | Ilene Bright, | | | 2017 | on | Pain Center at | PERFORMANCE ANALYST [address] | | | | | [facility] | [facility] [place] | | | | | [address] | [address] | | | | | [place] for [facility] | [phone] | | | | | and Healing, | | | | | | | | | | | | Floor [place], [place] | | | | | | [address] | | | | | | [phone] | | | +--------+ + + + [...]
--- OUTSIDE RECORDS SUMMARY | ~2020-08-23 | XMS | Encounter Summary ---
Demographics + + + | Address | [address] | | | [place] [address] | + + + | Home Phone [...] Providers + +------+ + | Care Tile Machine Operator Name | Role | Phone [...] | | | | | Constipation | [address] | [address] | | | | | , | [address] | [place] for | | | | | unspecified | [address] | Health and | | | | | constipation | [place], [place] | Healing, | | | | | type | [address] | [address] | | | | | Abdominal | | [place], [place] | | | | | pain, | | [address] | | | | | unspecified | | Phone: | | | | | location | | [phone] | | | | | Procedures | | Fax: | | | | | CONSULT TO | | [phone] | | | | | GI PROCEDURE [...] Date | | + +--------+ + | Pain | 10/19/ | Flare up | | | 2015 | | + +--------+ + | Vomiting | 10/19/ | Bile | | | 2015 | | + +--------+ + Encounter Details +--------+ + + + + | Date | Type | Department | Care Team | Description | +--------+ + + + + | 10/19/ | Telephone | Digestive Health | Ava Carbajal | Pain (Flare up); | | 2015 | | Center at [facility] [address] | MD Melissa | Vomiting (Bile) | | | | [address] [facility] | | | | | | for Health and | | | | | | Healing, [address] | | | | | | [place], [place] | | | | | | [address] | | | | | | [phone] | | | +--------+ + + + [...] this encounter Miscellaneous Notes Telephone Encounter - Ava Carbajal MD - 10/21/2016 4:38 PM PSTColonoscopy ordered. External order for Xray placed for sitz maker study. -should have xray on DAY 5 after ingesting sitz marker capsule -If more than 3 markers left on day 5, daily xrays until all but < or equal to 3 markers ar e passed *Will reach out to our staff re: how to get patient capsule ?mail vs pick-up and for help w ith making order external to patients desired location. elephone Encounter - Isadora Eller MA - 10/20/2016 3:57 PM PSTI called Grecia but reached her VM. I lvm for her letting her know we had a respo nse from provider and asked her to please call back when she had a moment to talk. Office in formation provided. elephone Encounter - Isadora Eller MA - 10/20/2016 3:39 PM PSTFrom: Ava Carbajal MD Sent: 10/20/2016 2:51 PM To: Isadora Eller MA I did haha. No problems this is what I wrote: I would do sitz marker test and colonoscopy. We would like to have these done here (non urg ent). I dont think [facility] does sitz maker study. I would stay on miralax daily to keep her from getting blocked up again. Can you clarify if her abdominal pain and nausea resolved with the bowel prep? (Routing com ment) elephone Encounter - Tala Burns RN - 10/19/2016 8:37 AM PSTSpoke with Tracie Donaldson Sofi, she endorse s that she is having a cyclical episode of abdominal cramping, nausea and vomiting. This has happened many times in the past. She denies fever, s/sx of dehydration. She has a plan in [facility] of where to go locally if she develops any warning symptoms and needs urgent evaluation . Currently she is having 1 BM per day, has not taking Miralax (or any other anti-constipatio n) in 1-2 weeks. She says that after the bowel clean out with golytely a month or so ago, sh e has felt much better and has been having 1 soft BM per day. She is wondering about additional studies that were recommended at her last office visit. L ast testing she had done was anorectal manometry, and results were normal. If sitz marker st udy is recommended, she would like to have imaging done at [facility] in [place], [place]. Advised she will hear back today or tomorrow, no further questions at this time.Electronica lly signed by Tala Burns RN at 10/19/2016 4:26 PM PSTTelephone Encounter - Lizet Waller - 10/19/2016 8:03 AM KAYDENTracie is calling regarding symptoms. Please return call at [phone]. Have you recently had a procedure no, surgery no or hepatitis C treatment? no What is your symptom?: Pain and vomiting bile since Tuesday. Is this new or a change for you? Yes Is this symptom causing you pain?Yes 05/23 May we leave a detailed message at the listed phone number? Yes documented in this enc nter Plan of Treatment Not on filedocumented as of this encounter Visit Diagnoses + + | Diagnosis | + + | Constipation, unspecified constipation type - Primary | + + | Abdominal pain, unspecified location | + + documented in this encounter"
--- OUTSIDE RECORDS SUMMARY | ~2020-08-23 | XMS | Encounter Summary ---
Demographics + + + | Address | [address] | | | [place] [address] | + + + | Home Phone [...] Team Providers + +------+ + | Care Chair Springer Name | Role | Phone | + [...] | | 2017 | | Center at [facility] [address] | | Review | | | | [facility] | | | | | | for Health and | | | | | | [facility], [facility] 2 | | | | | | [place], [place] | | | | | | [address] | | | | | | [phone] | | | +--------+ + + + [...]
--- OUTSIDE RECORDS SUMMARY | ~2020-08-23 | XMS | Encounter Summary ---
Demographics + + + | Address | [address] | | | [place] [address] | + + + | Home Phone [...] + + | 12/07/ | Telephone | [facility] | Alex Sanchez, | | | 2019 | | Pain Center at | ,PhD [address] | | | | | [facility] | [address] | | | | | [address] | [place], [place] | | | | | [place] for [facility] | [address] | | | | | and Healing, | [phone] | | | | | | | | | | | Floor [place], [place] | | | | | | [address] | | | | | | [phone] | | | +--------+ + + + [...] encounter Miscellaneous Notes Telephone Encounter - Charline Urbina RN - 12/11/2018 3:[address] Sanchez , patient can shower, patient can not soak in a tub. Called, no answer, LVM with request to call back at her her convenience.Electronically sign ed by Charline Urbina RN at 12/11/2018 3:09 PM PSTTelephone Encounter - Smita Baca MA - 12/11/2018 11:10 AM PSTRouting to provider & frame aligner Pool to support patient with que stions. elephone Vanessa Rea - 12/07/2018 10:40 AM PSTDoes patient have confidential voicemail so we can leave detailed messages?: Yes Reason for call: patient called stating she just realized she does not know when she will b e able to take a shower because of her glued up stitches. She states she would like a nurse or any provider to call her and if she doesn't answer then she would like to have someone le ave a detailed vm documented in this encounter Plan of Treatment Not on filedocumented as of this encounter Visit Diagnoses Not on filedocumented in this encounter"
--- OUTSIDE RECORDS SUMMARY | ~2020-08-23 | XMS | Encounter Summary ---
Demographics + + + | Address | [address] | | | [place] [address] | + + + | Home Phone [...] Team Providers + +------+ + | Care Dredge Hand Name | Role | Phone | [...] | | | | | syndrome | [facility] | [facility] | | | | | type [address] | [address] | Rd [place], | | | | | left lower | [facility], [place] | [place] | | | | | extremity | [address] | [address] | | | | | Procedures | Phone: | Phone: | | | | | REQUEST TO | [phone] | [phone] | | | | | SURGERY | Fax: | Fax: | | | | | ENGINE TESTING SUPERVISOR | [phone] | [phone] | +--------+---------+ + + + + Reason [...] | | | | pain, | [address] | ,PhD [address] | | | | | unspecified | [address] | [address] | | | | | location | Rd | [address] | | | | | Procedures | [place], [place] | [place], | | | | | CONSULT TO | [address] | [place] | | | | | PAIN | | [address] | | | | | MANAGEMENT | | Phone: | | | | | | | [phone] | | | | | | | Fax: | | | | | | | [phone] | +--------+--------+ + + + + Encounter Details +--------+---------+ + + + | Date | Type | Department | Care Team | Description | +--------+---------+ + + + | 10/09/ | Office | [facility] | Alex Sanchez, | Complex regional | | 2018 | Visit | Pain Center at | ,PhD [address] [facility] | pain syndrome type 1 | | | | [facility] | [facility] [address] | of left lower | | | | [address] | [place], [place] | extremity (Primary | | | | [place] for [facility] | [address] | Dx) | | | | and Healing, | [phone] | | | | | | | | | | | Floor [place], [place] | | | | | | [address] | | | | | | [phone] | | | +--------+---------+ + + + [...] with an external order to see a reconciliation specialist today. Please p resent this referral [...] insurance. PRE-PROCEDURE INSTRUCTIONS 1. Please bring a drop hammer pile driver operator with you as we may give you medications that impair your ability to drive. This is necessary even if you do not receive sedation. You may take a taxi or ri [employer] the streetcar if you are accompanied by [...] or blood thinning medications (other than aspirin), [facility] doctor who is doing your procedure will communicate with the provider who is prescribing y our anticoagulant therapy. If you do not have clear instructions on what to do with your an ticoagulant by 2 weeks before your procedure, please contact [facility] to cl arify your instructions. The phone number for questions or concerns is [phone]. EN documented in this encounter Progress Notes Alex Sanchez MD,PhD - 10/09/2018 10:00 AM KAYDENI saw and evaluated the patient with Shakira Valerio, who conducted the initial history. I reviewed the history in detail a nd edited his note. I performed a physical examination and was present and participating in the formulation portion of the encounter. I agree with the findings and the plan of care as documented in our notes. Alex Sanchez MD,PhD [facility] LimingtonElectronically signed by Alex Sanchez MD,PhD at 09/15 [...] Person MD - 10/09/2018 10:00 AM PST [facility] Return Visit Date: 10/09/2018 Chief Complaint Patient presents with Back pain Low back pain Pain in left leg Knee pain Ankle pain Foot pain History of Present Illness: Tracie Farah is a 28 year old female, whose last appoi ntment at the [facility] was September 28, 2018, for a clinic visit with Yun Frey NP. At that time our plans were: Recommendations/Plan: 1. Recommend to keep her appointment with Dr. Sanchez on 10/02/2018. 2. To contact the [employer] rep if she has any further question on programming. Today, she complains of constant pain located in the bilateral low back and left lower leg. Her pain is made worse by any physical activity. Her pain is improved by rest and ketamine. This condition has improved since Ms. Farah's last visit. She does not have new pain com plaints on this visit. Ms. Faarh reports that there have been no changes in her history s fahad the last appointment. Since her last visit, she reports developing a "bad wound" over her right lower back/buttoc k with suspected infection. She went into the emergency room in [place], [place] where they rem cady the leads. [...] which she suspects also used dissolvable stitches. 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 Goes to [employer] with a light load. Has been working at [employer], can' t work on [employer]ur[employer]. Has roommates. Allergies Allergen Reactions Morphine Anaphylaxis [...] the vein (IV) every eight hour s. 5754-5704-10 COMPOUNDED MED RX CONTROLLED (SEE ADMIN INSTRUCT [...] by physician. Concentration is 150mg/mL. Compounded by [facility] ) KETOROLAC IM Inject into the [...] (IV) every twel ve hours as needed. 3985-0039-52 ONDANSETRON 4 MG DISINTEGRATING TABLET Dissolve 1 [...] and summary of old medical records (source: [employer]), as summarized in the body of the [...] Key. Arben Valerio MD PAIN C[facility] AT [facility] [address]TH FLOOR [address] Mail Code: [id number] [place] [address] [phone] signed by Alex Sanchez MD,PhD at 10/10/2018 9:27 AM PSTdoc umented in this encounter Plan of Treatment Not on filedocumented as of this encounter Visit Diagnoses + + | Diagnosis | + + | Complex regional pain syndrome type 1 of left lower extremity - Primary | + + documented in this encounter
--- OUTSIDE RECORDS SUMMARY | ~2020-08-23 | XMS | Encounter Summary ---
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 | | | | Therapy | CRPS | Janak Martinez MD | [address] | | | | | (complex | [address] | | | | | regional | [address] | Mailcode: | | | | | pain | Mailstop | [facility] | | | | | syndrome), | [id number] | for Health | | | | | lower limb | [place], [place] | and Healing, | | | | | Gait | [address] | Building [address] | | | | | disturbance | Phone: | [place], [place] | | | | | Muscle pain | [phone] | [address] | | | | | Procedures | Fax: | Phone: | | | | | PHYSICAL | [phone] | [phone] | | | | | THERAPY | [...] | | | | [address] | [place] [address] | syndrome), lower | | | | [address] | [phone] | limb (Primary Dx) | | | | [facility] | | | | | | and Healing, | | | | | | Building 1, | | | | | | Floor [place], [place] | | | | | | [address] | | | | | | [phone] | | | +--------+---------+ + + + [...] might be different f rom the original. [id number] BRODY FARAH Date of : 1990 Start of care: 02/14/2012 Date of onset: 02/14/2012 Referring/Attending Practitioner: Janak Riojas MD . Primary/Referral Diagnosis/ICD-9: 355.71B CRPS (complex regional pain syndrome), lower limb Insurance: Payor: [facility] Plan: BCBS OUT OF STATE Product Type: PP O Service period from: 02/14/2012 to: 08/12/2012 Number visits used/authorized: 01/23 [facility] PHYSICAL THERAPY PROGRESS NOTE SUBJECTIVE: Age: 21 y.o. Sex: female Chief complaint: No chief complaint on file. Current: pt has been doing her neck exercises. She is not shaking as much. Her foot hurts t bruno. Now she is working at [employer] 2-3 hours per week, and spends a lot of the day hanging out on the couch at home. She wants to improve her whole body fitness and find things she can d o without flaring up her ankle. She does have a gym that she can use and she has a family fr iend who is a local PT. History of [...] change in their status. Guillermo Sanon MSPT [facility] Outpatient Rehabilitation Services Mailcode: [facility] [address] [facility], [address] [place] [phone] documented in this encounter Plan of Treatment Not on filedocumented as of this encounter Procedures + +--------+ + + + | Procedure Name | Priori | Date/Time | Associated Diagnosis | Comments | | | ty | | | | + +--------+ + + + | MD THERAPEUTIC | Routin | 05/11/2012 | CRPS [...]
--- OUTSIDE RECORDS SUMMARY | ~2020-08-23 | XMS | Encounter Summary ---
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 Chh1 | | | | / Pain | Abdominal | MD Kenny | [address] | | | | Management | pain, | [address] | [facility] | | | | | unspecified | [facility] | for Health | | | | | location | Rd | and Healing, | | | | | Procedures | [place], [place] | Building | | | | | CONSULT TO | [address] | 1,15th Floor | | | | | PAIN | | [place], [place] | | | | | MANAGEMENT | | [address] | | | | | | | Phone: | | | | | | | [phone] | | | | | | | Fax: | | | | | | | [phone] | +--------+--------+ + + + + Encounter Details +--------+---------+ + + + | Date | Type | Department | Care Team | Description | +--------+---------+ + + + | 07/11/ | Office | [facility] Comprehensive | Ilene Bright, | Pain of upper | | 2017 | Visit | Pain Center at | DISH NETWORK INSTALLER [address] | abdomen (Primary | | | | [place] | [place], [place] | Dx); Intractable | | | | [address] | [address] | cyclical vomiting | | | | [facility] | [phone] | with nausea; | | | | and Healing, | | Irritable bowel | | | | Building | | syndrome with | | | | Floor [place], [place] | | constipation; | | | | [address] | | Complex regional | | | | [phone] | | pain syndrome type 1 | [...] and determine next steps. Ilene Childs DNP, DISH NETWORK INSTALLER-C Adult Pain Service /[facility] [address] [place] [address] documented in this encounter Progress Notes [place]ene Bright FNP - 07/11/2017 1:35 PM PDTFormatting of this note might be different fr om the original. [facility] Return Visit Date: 07/11/2017 Chief Complaint Patient presents with Abdominal pain Back pain History of Present Illness: Tracie Farah is a 27 year old female, whose last appoi ntment at the [facility] was April 25, 2017, [...] The Fibro Manual, by Freddie Guadalupe MD [email or web address] Today, she complains of 5/10 pain located [...] in the process of arranging home h ealth for Tracie. She has also changed her [...] her abdominal pain an d associated symptoms. [facility] QUESTIONNAIRE BRIEF PAIN 07/11/2017 Please rate [...] has interfered with your sleep : 5 PIE BOTTOMER Questionnaire Follow-up Patient 07/11/2017 Please describe the [...] Trial spinal cord stimulator leads 08/02/2012 [facility], Surgeon: Janka Riojas MD Cholecystectomy Appendectomy Other l ankle, [...] History Social History Narrative Single. Goes to [employer] with a light load. Has been working at [employer], can' t work on [employer]. Has roommates. Allergies Allergen Reactions Morphine [...] by physician. Concentration is 150mg/mL. Compounded by [facility] ( [phone]) LAMOTRIGINE 200 MG TABLET Take 1 tablet [...] Take as directed by [facility] Dig[facility]ive [facility]- 2 gallon bowel prep POLYETHYLENE [...] and summary of old medical records (source: [employer]), as summarized in the body of the [...] Shantel [place], am functioning as a medical physics teacher for MARLENI Clark DNP I have reviewed and verified the above scribed note of my visit with this patient as record ed by Shantel [place]. Ilene Childs DNP, FNP-C Adult Pain Service [facility] [address] [place] [address] Addendum: I paged Dr. Les Gaspar. He was out of the clinic, I spoke with the covering provider and dianelys Hodges's request for food allergy testing. Since Tracie thinks her pain and vomiting may b e triggered by gluten, covering provided ordered appropriate workup, which I communicated to Tracie and the the lab in [place], [place]. She will followup with me and GI once these results are available. Ilene Childs DNP, FNP-C Adult [facility] Service [facility] [address] [place] [address] documented in this e ncounter Plan of [...]
--- OUTSIDE RECORDS SUMMARY | ~2020-08-23 | XMS | Encounter Summary ---
Demographics + + + | Address | [address] | | | [place] [address] | + + + | Home Phone [...] Team Providers + +------+ + | Care Driller And Reamer Name | Role | Phone | + +------+ + | Justo Vazquez MD | PCP | | + +------+ + Reason for Visit + +--------+ + | Reason | Onset | Comments | | | Date | | + +--------+ + | Test Results | 10/04/ | | | | 2015 | | + +--------+ + | Treatment Planning | 10/04/ | | | | 2015 | | + +--------+ + Encounter Details +--------+ + + + + | Date | Type | Department | Care Team | Description | +--------+ + + + + | 10/04/ | Telephone | Digestive Health | Ava Carbajal | Test Results; | | 2015 | | Center at [place] [address] | MD Melissa | Treatment Planning | | | | [address] [facility] | | | | | | for Health and | | | | | | [facility], Building [address] | | | | | | [place], [place] | | | | | | [address] | | | | | | [phone] | | | +--------+ + + + [...] Telephone Encounter - Ava Carbajal MD - 10/05/2016 1:23 PM PSTCalled patient to let her know results of ARM normal. PATIENT DID NOT ANSWER. LEFT detailed message Despite malfunction with RAIR measurement during test, ARM was near complete study and show ed otherwise normal results with normal relaxation and balloon expulsion ruling out pelvic f adán dysfxn. Given constipation only started a few years ago, not c/f hirschrungs disease an d would not repeat testing just for RAIR measurement. When last talked to patient after bowel prep she had improvement in sxs of constipation and no N/V. She did mention that her sxs can be cyclical though. Although could be colonic iner tia, given cyclical nature I do wonder about IBS-C. PLAN: -Given mom's hx colonic inertia, will obtain sitz marker study -colonoscopy w TI intubation to evaluate for crohn's given hx weight loss -if above w/u negative consider CTE or capsule study (? patency capsule first given hx rafael re constipation) el ephone Encounter - Dorita Barros - 10/04/2016 4:35 PM PSTPatient called stating she w ould like to know the results from her motility study on 09/14. Patient stated she would also like to know what the plan is and if she needs to be seen in clinic again. Patient requests call back to discuss. Please follow up. doc umented in this encounter Plan of Treatment Not on filedocumented as of this encounter Visit Diagnoses Not on filedocumented in this encounter"
--- OUTSIDE RECORDS SUMMARY | ~2020-08-23 | XMS | Encounter Summary ---
Demographics + + + | Address | [address] | | | [place] [address] | + + + | Home Phone [...] Providers + +------+ + | Care Clerk Travel Reservations Name | Role | Phone | + +------+ + | Justo Vazquez MD | PCP | | + +------+ + Encounter Details +--------+ + + + + | Date | Type | Department | Care Team | Description | +--------+ + + + + | 05/05/ | Documentati | [facility] Comprehensive | Alex Sanchez, | | | 2018 | on | Pain Center at | ,PhD [address] | | | | | [facility] | [address] | | | | | [address] | [place], [place] | | | | | [place] for [facility] | [address] | | | | | and Healing, | [phone] | | | | | | | | | | | Floor [place], [place] | | | | | | [address] | | | | | | [phone] | | | +--------+ + + + [...]
--- OUTSIDE RECORDS SUMMARY | ~2020-08-23 | XMS | Encounter Summary ---
Demographics + + + | Address | [address] | | | [place] [address] | + + + | Home Phone [...] Team Providers + +------+ + | Care Wind Turbine Engineer Name | Role | Phone | [...] | | | [address] | [facility] | | | | | [place], [place] | [place], [place] | | | | | [address] | [address] | | | | | | [phone] | | | | | | | [...] | + +--------+ + + + | INTERMEDIATE MANAGER MISC PROCEDURE | Routin | 12/27/2017 | Complex regional | Results for this | | | e | 3:28 PM | pain syndrome type 1 | procedure are in the | | | | PST | of left lower | results section. | | | | | extremity | | + +--------+ + + + documented in this encounter Results INTERMEDIATE MANAGER MISC PROCEDURE (12/27/2017 3:28 PM PST) [...]
--- OUTSIDE RECORDS SUMMARY | ~2020-08-23 | XMS | Encounter Summary ---
Demographics + + + | Address | [address] | | | [place] [address] | + + + | Home Phone [...] Team Providers + +------+ + | Care Anti Tank Missileman Name | Role | Phone | + +------+ + | Justo Vazquez MD | PCP | | + +------+ + Encounter Details +--------+ + + + + | Date | Type | Department | Care Team | Description | +--------+ + + + + | 09/25/ | Pharmacy | [facility] | | | | 2018 | Visit | [facility] | | | | | | [address] | | | | | | Mailcode: [place] | | | | | | [facility] | | | | | | Healing, Building [address] | | | | | | [place], [place] | | | | | | [address] | | | | | | [phone] | | | +--------+ + + + [...]
--- OUTSIDE RECORDS SUMMARY | ~2020-08-23 | XMS | Encounter Summary ---
Demographics + + + | Address | [address] | | | [place] [address] | + + + | Home Phone [...] Team Providers + +------+ + | Care Tub Wash Operator Name | Role | Phone | + +------+ + | Justo Vazquez MD | PCP | | + +------+ + Reason for Visit + +--------+ + | Reason | Onset | Comments | | | Date | | + +--------+ + | Pain in left leg | | | + +--------+ + | Procedure | 12/27/ | | | | 2017 | | + +--------+ + Consult to [place] (Routine) +--------+---------+ + [...] | | | | | extremity | [address] | [address] | | | | | Muscle pain | Phone: | Phone: | | | | | Procedures | [phone] | [phone] | | | | | REQUEST TO | Fax: | Fax: | | | | | SURGERY | [phone] | [phone] | | | | | [facility]ER | | | | | | | ME INJ,ANES | | | | | | | AGENT,SCIATI | | | | | | | C | | | | | | | NERVE,SINGLE | | | | | | | ME INJECT | | | | | | | NERV | | | | | | | BLCK,OTHR | | | | | | | PERIPH NERV | | | | | | | ME SONO | | | | | | | GUIDE FOR | | | | | | | NEEDLE | | | | | | | PLACEMENT | | | | | | | ME MOD | | | | | | | SEDATION | | | | | | | >=5YRS SAME | | | | | | | MD/QUAL | | | | | | | PROV; INIT | | | | | | | 15 MIN ME | | | | | | | [...] 12/27/ | Procedure | Pain Center at [facility] | Alex Sanchez, | Pain in left leg; | | 2017 | | [address] | ,PhD [address] | Procedure | | | | Center for [facility] | [facility] | | | | | and Healing, | [place], [place] | | | | | | [address] | | | | | [place], [place] | [phone] | | | | | [address] | | | | | | [phone] | | | +--------+ + + + [...] 3:00 PM PSTFormatting of this note mi ght be different from the original. [facility] Pain Center Patient Instructions - Post Interventional Procedure Date: 12/27/2017 Name: Tracie Farah Date of : 1990 Procedure Performed: trigger point injection and popliteal/sciatic block. Procedure Provider: Alex Sanchez MD,PhD If you have any problems you believe are associated with your procedure tonight, Please call the Hospital Technology Engineer, and ask for the Pain Management Consu ltant. If you have problems or questions between 9:00 am and 4:00 pm, Please call the [facility] Pain Center Nurse Triage Line, . [...] paper. Please fax the pain diary to [phone] or attach a scanned image of it to a [employer] message to your doct or.. The area [...] to the larry ent. David Linares MD [facility] Center documented in this encounter Progress Notes Alex Sanchez MD,PhD - 12/27/2017 3:00 PM PSTI was present for the entire procedure ( popliteal nerve block and abdominal scar neuroma injection) and all bocanegra elements of this vis it. I reviewed the documentation of the other [facility] providers and concur with Dr. Linares's findings. I edited his note. Alex Sanchez MD,PhD Video Production Assistant Anesthesiology and Pain Management [facility] avid Linares MD - 12/27/2017 3:00 PM PSTPROVIDER OPERATIVE NOTE Date: December 27, 2017 Location: [facility] Procedure Room Tracie Farah [id number] :1990, presents to clinic for: PROCEDURE: Popliteal/sciatic [...] scar neuroma ATTENDING PHYSICIAN: Alex Sanchez MD,PhD DIRECTOR INDUSTRIAL RELATIONS: Fellow David Linares MD ANESTHESIA: sedation Isadora [...] sedation. Ms. Farah was escorted to the [facility] Procedure R oom, where she [...] procedure. Images were saved, and sent to [employer]. Ms. Farah was transported to the [facility] Comprehensive Pain Center post-procedure [...] by physician. Concentration is 150mg/mL. Compounded by [facility] ) LEVONORGESTREL 20 MCG/24 HR (5 [...] directed by [facility] Digestive Health- 2 gallon [...] PRE-SEDATION: Date: December 27, 2017 Tracie Farah [id number] 1990 ALLERGIES: Morphine Previous reaction to Sedation/Analgesia: [...] of physical activity and soci al withdrawal Isadora Reyes RN - 12/27/2017 3:00 PM PSTNurse PRE-SEDATION: Date: December 27, 2017 Tracie Donaldson [facility] [id number] 1990 See RN /ZOFIA Pre-Sedation Note. IV ACCESS:Right subc PAC. BASELINE VS: See Sedation Flow Sheet. Tracie Donaldson [facility] [id number] 1990, presents to clinic for: Procedure: left [...] started. 1530 Midazolam 2mg IV given 1530 [id number] mcg IV given 1534 Midazolam 1mg IV given 1546 Midazolam 1mg IV given 1546 [id number] mcg IV given 1548 Fentanyl 100 mcg IV given bupivacaine 0.5%, 9mL given, 21mL wasted Kenalog 40mg/mL 1mL, 0 mL wasted 1555 abdominal scar trigger point completed. 1558 Fentanyl 50 mcg IV given 1601 Fentanyl 50 mcg IV given [place] placed for Popliteal Nerve Block.. Placement verified [...] + +--------+ + + + | ME INJECTION(S), | Routin | 12/27/2017 | Complex regional | | | ANESTHETIC AGENT(S) | e | 4:32 PM | pain syndrome type 1 | | | AND/OR STEROID; | | PST | of left lower | | | OTHER PERIPHERAL | | | extremity | | | NERVE OR BRANCH | | | | | + +--------+ + + + | ME ROPIVACAINE HCL | Routin | 12/27/2017 | Complex regional | | | INJ 0.5% | e | 4:32 PM | pain syndrome type 1 | | | | | PST | of left lower | | | | | | extremity | | + +--------+ + + + | ME MOD SEDATION | Routin | 12/27/2017 | Complex regional | | | >=5YRS SAME MD/QUAL | e | 4:32 PM | pain syndrome type 1 | | | PROV; INIT 15 MIN | | PST | of left lower | | | | | | extremity | | + +--------+ + + + documented in this encounter Results [facility] PROCEDURE (12/27/2017 3:28 PM PST) + + [...]
--- OUTSIDE RECORDS SUMMARY | ~2020-08-23 | XMS | Encounter Summary ---
Demographics + + + | Address | [address] | | | [place] [address] | + + + | Home Phone [...] Team Providers + +------+ + | Care Tankroom Worker Name | Role | Phone | [...] Closed | | Orthopedics | Diagnoses | [place], | [employer] [facility] | | | | | Adjustment | Ranjeet Odom MD | Ch[facility]1 [address] | | | | | disorder, | [address] | [address] | | | | | unspecified | Ave | Center for | | | | | type | [facility] [place] | Health and | | | | | Procedures | [address] | Healing, | | | | | CONSULT TO | Phone: | Building 1, | | | | | BEHAVIORAL | [phone] | 12th Floor | | | | | HEALTH/PSYCH | Fax: | [place], [place] | | | | | [place] - | [phone] | [address] | | | | | ADULT | | Phone: | | | | | | | [phone] | | | | | | | Fax: | | | | | | | [phone] | +--------+--------+ + + + + Reason [...] | | syndrome | [address] | [place], [place] | | | | | type 1 of | Rd | [address] | | | | | left lower | [place], [place] | Phone: | | | | | extremity | [address] | [phone] | | | | | Procedures | Phone: | Fax: | | | | | CONSULT TO | [phone] | [phone] | | | | | ORTHOPEDICS | Fax: | | | | | | AND | [phone] | | | | | | REHABILITATI | | | | | | | ON | | | +--------+--------+ + + + + Encounter Details +--------+---------+ + + + | Date | Type | Department | Care Team | Description | +--------+---------+ + + + | 03/08/ | Office | Orthopaedics | Rnajeet Amanda, | Foot pain, left | | 2018 | Visit | Faculty at [facility] | [address] | (Primary Dx); Left | | | | for Health and | [place], [place] | ankle pain, | | | | Healing [address] | [address] | unspecified | | | | [facility] for | [phone] | chronicity; | | | | Health and Healing, | | Adjustment disorder, | | | | Building | | unspecified type | | | | Floor [place], [place] | | | | | | [address] | | | | | | [phone] | | | +--------+---------+ + + + [...] Hemroidectomy Trial spinal cord stimulator leads 08/02/2012 [facility], Surgeon: Janak Riojas MD [...] by physician. Concentration is 150mg/mL. Compounded by [facility] ([phone]) levonorgestrel (MIRENA) 20 mcg/24 hr Intrauterine IUD [...] oral recon soln Take as directed by [facility]- 2 gallon bowel prep polyethylene glycol [...] [facility] and personally formulated the plan with the [...] become. f/u open ended Ranjeet Amanda M.D. [facility] Department of Orthopedics & Rehabilitation [facility] [phone] >60 mins face to face consultation was [...]
--- OUTSIDE RECORDS SUMMARY | ~2020-08-23 | XMS | Encounter Summary ---
Demographics + + + | Address | [address] | | | [place] [address] | + + + | Home Phone [...] Team Providers + +------+ + | Care Italian Teacher Name | Role | Phone | + +------+ + | Allegra Chaudhary | PCP | | + +------+ + Reason for Visit + +--------+ + | Reason | Onset | Comments | | | Date | | + +--------+ + | Bowel Clean-out | 08/12/ | | | | 2015 | | + +--------+ + Encounter Details +--------+ + + + + | Date | Type | Department | Care Team | Description | +--------+ + + + + | 08/12/ | Telephone | Digestive Health | Ava Carbajal | Bowel Clean-out | | 2015 | | Center at [facility] | MD Melissa | | | | | [address] [place] | | | | | | for Health and | | | | | | Healing, [address] | | | | | | [place], [place] | | | | | | [address] | | | | | | [phone] | | | +--------+ + + + [...] this encounter Miscellaneous Notes Telephone Encounter - Vanessa Steve RN - 08/16/2016 7:30 AM PDTDr. Carbajal sent [employer] message TTelephone Encounter - Vanessa Steve RN - 08/12/2016 3:46 PM PDTWill route to Dr Pj Carbajal to please follow up. 16 3:47 PM PDTTelephone Encounter - Hubert Odonnell - 08/12/2016 2:04 PM PDTPatient called debra faust stating that she had been prescribed a colon cleanse by . Patient took liquid and other than a small amount of stool only thing that came out was liq uid. Patient states it seems she was not constipated. Patient wished to pass this along to documented in this encount er Plan of Treatment Not on filedocumented as of this encounter Visit Diagnoses Not on filedocumented in this encounter"
--- OUTSIDE RECORDS SUMMARY | ~2020-08-23 | XMS | Encounter Summary ---
Demographics + + + | Address | [address] | | | [place] [address] | + + + | Home Phone [...] Team Providers + +------+ + | Care Greens Planter Name | Role | Phone | + +------+ + | Justo Vazquez MD | PCP | | + +------+ + Reason for Visit + +--------+ + | Reason | Onset | Comments | | | Date | | + +--------+ + | Refill Request | 08/07/ | | | | 2018 | | + +--------+ + Encounter Details +--------+--------+ + + + | Date | Type | Department | Care Team | Description | +--------+--------+ + + + | 08/07/ | Refill | [facility] | Sdrulla, Alex D, | Refill Request | | 2018 | | Pain Center at | ,PhD [address] | | | | | [facility] | [address] | | | | | [address] | [place], [place] | | | | | [facility] | [address] | | | | | and Healing, | [phone] | | | | | | | | | | | Floor [place], [place] | | | | | | [address] | | | | | | [phone] | | | +--------+--------+ + + + [...] Telephone Encounter - Charline Salinas MA - 08/08/2018 10:54 AM PDT elephone Encounter - Simta Baca MA - 08/07/2018 11:22 AM PDT Reason for Call: Refill request Patient: Tracie Farah Contact Information: Home Phone Work Phone Message: Description of reason for call: Name of Medication requested: Requested Prescriptions Pending Prescriptions Disp Refills ketamine 100 mg/mL injection solution 5 Si to 30 sprays in each nostril every 3 hrs as needed for pain as directed by mandeep falk. Concentration is 150mg/mL. Compounded by [facility] ([phone]) Patient has been compliant with [facility] treatment plan: yes Smita Baca MA Last Encounter with [facility]: Last Appointment in [facility] was on 08/03/18 [id number] 11:22 am with Alex Sanchez MD,P hD. Refill Request. Future Appointments: Next Appointment in [facility] is on 09/25/18 at 12:00 pm with Alex Sanchez MD ,PhD. Patient's Preferred Pharmacy: Pharmacy Preferences: [facility] [address] [place] [address] Hours: 8am-9pm Mon-fri; 9-5:30pm Sat-sun E-Prescribing: Yes E-Prescribing Control Substances: Yes [facility] [place] [address] Hours: 9am-9pm Mon-fri / 9am-7pm Sat / 10am-6pm Sun E-Prescribing: Yes E-Prescribing Control Substances: Yes [facility] #[id number] [address] [facility] [place] [address] Hours: 9am-7pm Mon-fri / 9am-6pm Sat / 10am-5pm Sun E-Prescribing: Yes E-Prescribing Control Substances: Yes [facility] [address] [place] [address] Hours: E-Prescribing: Yes E-Prescribing Control Substances: Yes When was the patient last seen? 06/12/2018 Is the 90 day follow up scheduled? yes Apointment date/due? 10/02/2018 @16:30 Was the Opioid Treatment Agreement been signed within the past 12 months? no Has a UDS been collected? Yes Date collected 12/14/2017 [place] PDMP checked and added to note. Yes - See Charline Salinas's documentation. Provider to check [place] GETTER FILLER. documented in this en counter Plan of Treatment Not on filedocumented as of this encounter Visit Diagnoses Not on filedocumented in this encounter"
--- OUTSIDE RECORDS SUMMARY | ~2020-08-23 | XMS | Encounter Summary ---
Demographics + + + | Address | [address] | | | [place] [address] | + + + | Home Phone [...] Team Providers + +------+ + | Care Blocker Automatic Name | Role | Phone | + [...] | | | Spasticity | Ave | [facility] [place] | | | | | Procedures | [facility] [place] | [address] | | | | | CONSULT TO | [address] | Phone: | | | | | PAIN | Phone: | [phone] | | | | | MANAGEMENT | [phone] | Fax: | | | | | | Fax: | [phone] | | | | | | [phone] | | +--------+---------+ + + + + [...] | | MD Celia | MD Brendan [address] | | | | | Fibromyalgia | [address] | [address] | | | | | Spasticity | Ave | [address] | | | | | Epigastric | [place], [place] | Rd [place], | | | | | pain | [address] | [place] | | | | | Procedures | Phone: | [address] | | | | | REQUEST TO | [phone] | Phone: | | | | | SURGERY | Fax: | [phone] | | | | | NARCOTICS DETECTIVE | [phone] | Fax: | | | | | AL INJECT | | [phone] | | | | | TRIGGER | | | | | | | POINT, 1 [place] | | | | | | | 2 AL INJECT | | | | | | [...] Pain Medicine | Diagnoses | Chasity, | Lead Java Developer Architect Chh1 | | | | / Pain | Abdominal | MD Kenny | [address] | | | | Management | pain, | [address] | [address] Center | | | | | unspecified | [facility] | for Health | | | | | location | Rd | and Healing, | | | | | Procedures | [place], [place] | Building | | | | | CONSULT TO | [address] | 1,15th Floor | | | | | PAIN | | [place], [place] | | | | | MANAGEMENT | | [address] | | | | | | | Phone: | | | | | | | [phone] | | | | | | | Fax: | | | | | | | [phone] | +--------+--------+ + + + + Encounter Details +--------+---------+ + + + | Date | Type | Department | Care Team | Description | +--------+---------+ + + + | 10/11/ | Office | [facility] | Vern Robertson, | Epigastric pain | | 2017 | Visit | Pain Center at | TONGUE AND QUARTER STITCHER [address] | (Primary Dx); | | | | [facility] | [place], [place] | Spasticity | | | | [address] | [address] | | | | | [place] for Health | [phone] | | | | | and Healing, | | | | | | Building | | | | | | Floor [place], [place] | | | | | | [address] | | | | | | [phone] | | | +--------+---------+ + + + [...] true warrior! * Please sign up for MYCHART. This is the best way to communicate with me. It will save you time in the long run. The procedure you discussed with your doctor is called: Trigger point injection of abdomina l scar. Please make sure this is scheduled with the Vice President Of Business Development. PRE-PROCEDURE INSTRUCTIONS 1. Please bring a local combination truck driver with you as we may give you medications that impair your ability to drive. This is necessary even if you do not receive sedation. You may take a taxi or ri [employer] if you are accompanied by a responsible [...] phone number for questions or concerns is [phone]. * Consider Lidoderm topical or compound prescription [...] muscle hyper tonicity. * Consider increasing your [place] 3 fats. [place]-3 fats are precursors to mediators of inflammation [...] oil if approved by your PCP or affiliate manager. * Eliminate High Fructose Mayodan Syrup and Sugar from your diet as [...] treatment plan. * Follow up with [facility] as needed. It was [...] increased appetite, anxiety and social withdrawal Vern Baeza, TONGUE AND QUARTER STITCHER - 1 12/11/2016 1:15 PM PST [facility] Return Visit Date: 10/11/2017 Chief Complaint Patient presents with Abdominal pain Back pain Foot pain History of Present Illness: Tracie Farah is a 27 year old female, whose last appoi ntment at the [facility] was 07/11/17 with TERESA Clark, [...] and nausea that began 2.5 years ago whdebra ch she believes may be related to [...] She reports multiple diagnostic tests conducted at [facility] in [place], [place] including barium swallow and Hydrogen breath [...] pain management." Her pain is improved by david donato. This condition has remained unchanged since Ms. [...] Torodol shots: only form of symptom relief. 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 Goes to [employer] with a light load. Has been working at [employer], can' t work on crUndaches. Has roommates. Allergies Allergen Reactions Morphine Anaphylaxis [...] by physician. Concentration is 150mg/mL. Compounded by [facility] ) LAMOTRIGINE 200 MG TABLET Take [...] GRAM SOLUTION Take as directed by [facility]- 2 gallon bowel prep POLYETHYLENE [...] reviewed. - Review old medical records (from [facility]). Pertinent findings include: abdominal surger [...] treatment plan. * Follow up with [facility] as needed. I, Guillermo Michaels, am scribing for Vern Robertson NP on 10/11/2017 I have reviewed and verified the above scribed note of my visit with this patient as record ed by Guillermo Hope. Vern Robertson NP [facility] AT [facility] 15TH FLOOR [address] [facility] [facility] Mail Code: [address] [place] [address] documented in this e ncounter Plan of Treatment Not on filedocumented as of this encounter Visit Diagnoses + + | Diagnosis | + + | Epigastric pain - Primary Abdominal pain, epigastric | + + | Spasticity Abnormal involuntary movements | + + documented in this encounter
--- OUTSIDE RECORDS SUMMARY | ~2020-08-23 | XMS | Encounter Summary ---
Demographics + + + | Address | [address] | | | [place] [address] | + + + | Home Phone [...] Providers + +------+ + | Care Mobile Developer Name | Role | Phone | + +------+ + | Justo Vazquez MD | PCP | | + +------+ + Reason for Visit +--------+--------+ + | Reason | Onset | Comments | | | Date | | +--------+--------+ + | Nausea | 09/26/ | | | | 2018 | | +--------+--------+ + Encounter Details +--------+ + + + + | Date | Type | Department | Care Team | Description | +--------+ + + + + | 09/26/ | Telephone | [facility] | Aleta Rebollar MD [address] | Nausea | | 2018 | | Pain Center at | [address] Sl[address] | | | | | [facility] | [facility] [place] | | | | | [address] | [address] | | | | | [facility] | [phone] | | | | | and Healing, | | | | | | Building | | | | | | Floor [facility] [place] | | | | | | [address] | | | | | | [phone] | | | +--------+ + + + [...] this encounter Miscellaneous Notes Telephone Encounter - Aleta Rebollar MD - 09/26/2018 8:15 AM PSTCalled by Tracie Farah, who i s now POD#1 s/p DRG trial lead implant. She reports that she is having significant nausea wi th her pain medication post procedure, which is not helped by ondansetron. She requests prom ethazine prescription for nausea control. Order was placed to a pharmacy of her choosing. Aleta Rebollar MD Pain Fellow documented in thi s encounter Plan of Treatment Not on filedocumented as of this encounter Visit Diagnoses Not on filedocumented in this encounter"
--- OUTSIDE RECORDS SUMMARY | ~2020-08-23 | XMS | Encounter Summary ---
Demographics + + + | Address | [address] | | | [place] [address] | + + + | Home Phone [...] Team Providers + +------+ + | Care Variety Saw Operator Name | Role | Phone | + +------+ + | Justo Vazquez MD | PCP | | + +------+ + Reason for Visit + +--------+ + | Reason | Onset | Comments | | | Date | | + +--------+ + | Other | 01/31/ | | | | 2016 | | + +--------+ + | Abdominal pain | 01/31/ | | | | 2016 | | + +--------+ + Encounter Details +--------+ + + + + | Date | Type | Department | Care Team | Description | +--------+ + + + + | 01/31/ | Telephone | [facility] | Kenny Gaspar MD | Other; Abdominal | | 2016 | | Center at [facility] [address] | | pain | | | | [address] [facility] | | | | | | for Health and | | | | | | Healing, Building 2 | | | | | | [place], [place] | | | | | | [address] | | | | | | [phone] | | | +--------+ + + + [...] this encounter Miscellaneous Notes Telephone Encounter - Kenny Gaspar Md - 02/01/2017 12:26 PM PDTSorry, did not see telephone e ncounter until now. Please e-mail or call if need to reach me urgently. Prelim MRE normal, will await final read. elep tiffany Encounter - Isadora Eller MA - 02/01/2017 11:38 AM PDTRadiology completed. Electronic ally signed by Isadora Eller MA at 02/01/2017 11:38 AM PDTTelephone Encounter - Emanuel Eller MA - 01/31/2017 10:36 AM PDTHigh priorty TE sent to Dr. Gaspar. elephone Encounter - Nicolette Bruno - 7 8:04 AM PDTPatient calling and stating that she has MRI scheduled today and she is on her way down from [place]-she stated she is having a stomach flare up right now and they are accessing her port for the MRI to sedate her a little. She stated it is very painful and unc omfortable for her to lay that long and was wondering if Dr. Gaspar can also send some of her p ain medication down to them so she can have that as well. documented in this encou nter Plan of Treatment Not on filedocumented as of this encounter Visit Diagnoses Not on filedocumented in this encounter"
--- OUTSIDE RECORDS SUMMARY | ~2020-08-23 | XMS | Encounter Summary ---
Demographics + + + | Address | [address] | | | [place] [address] | + + + | Home Phone [...] Providers + +------+ + | Care Metal Roofer Name | Role | Phone | + [...] | | | Center for Health | [place], [place] | | | | | and Healing, | [address] | | | | | | [phone] | | | | | Floor [place], [place] | | | | | | [address] | | | | | | [phone] | | | +--------+ + + + [...] Encounter - Jamel Madden, PhD - 08/30/2018 12:35 PM PDTPSYCHOLOGY UPDATE: Tracie Farah is an appropriate candidate for a DRG stimulator. When I saw her on 10/11/2017 she did not have psychological factors that would contraindicate an implantable d evice or an invasive procedure. She has adequate intelligence and insight to manage a stimu lator. Jamel Madden, PhD [facility] AT [facility] 15 FLOOR [facility] Mail Code: [place] [address] documented in this en counter Plan of Treatment Not on filedocumented as of this encounter Visit Diagnoses Not on filedocumented in this encounter"
--- OUTSIDE RECORDS SUMMARY | ~2020-08-23 | XMS | Encounter Summary ---
Demographics + + + | Address | [address] | | | [place] [address] | + + + | Home Phone [...] Team Providers + +------+ + | Care Pay Agent Name | Role | Phone | + +------+ + | Justo Vazquez MD | PCP | | + +------+ + Encounter Details +--------+ + + + + | Date | Type | Department | Care Team | Description | +--------+ + + + + | 01/06/ | Document-Pr | [facility] | Alex Sanchez, | | | 2018 | ann[place]ily | Pain Center at | ,PhD [address] | | | | | [facility] | [address] | | | | | [address] | [place], [place] | | | | | [place] [facility] | [address] | | | | | and Healing, | [phone] | | | | | | | | | | | Floor [place], [place] | | | | | | [address] | | | | | | [phone] | | | +--------+ + + + [...]
--- OUTSIDE RECORDS SUMMARY | ~2020-08-23 | XMS | Encounter Summary ---
Demographics + + + | Address | [address] | | | [place] [address] | + + + | Home Phone [...] Providers + +------+ + | Care Case Specialist Name | Role | Phone | + +------+ + | Justo Vazquez MD | PCP | | + +------+ + Encounter Details +--------+ + + + + | Date | Type | Department | Care Team | Description | +--------+ + + + + | 10/20/ | Telephone | [facility] | Ilene Bright, | | | 2017 | | Pain Center at | MOTION PICTURE SET GRIP [address] | | | | | [facility] | [place], [place] | | | | | [address] | [address] | | | | | [place] [facility] | [phone] | | | | | and Healing, | | | | | | | | | | | | Floor [place], [place] | | | | | | [address] | | | | | | [phone] | | | +--------+ + + + [...] Telephone Encounter - Ilene Bright FNP - 10/21/2017 1:39 PM PSTDiscussed with Vern woodard NP who last evaluated Tracie on 10/11. Per his recommendation, we will trial Baclofen for two days at the onset of her "abdominal spasms". I reviewed this with Tracie and submitted the prescription. She will follow up with me on on and let me know how she is doing. Also of concern for Tracie is there her current [facility] pain physician in [place] is retiring . Ilene Childs DNP, [employer] PI[employer] SET GR[facility] [address] [place] [address] elephone Encounter - Charline Salinas MA - 10/20/2017 3:10 PM PSTRouting to provider. elephone Encounter - Paulina Alcala - 017 2:18 PM PST Reason for Call: No chief complaint on file. Patient: Tracie Farah Contact Information: Home Phone Work Phone Message: Description of reason for call: Called patient to see If she was still interested in gettin g schedule for acupuncture and patient centered care specialist here from Vern's referral. Patient decline d since her insurance would not cover neither. But would like me to get a hold of Vern and Ilene regarding a medication recommendation for her stomach pain: Baclofen. Which patient w ould like it to be sent here for if Ilene would prescribe it since her PCP wouldn't be able to see her until 11.01.2017 and she states; "she is in a lot of pain from her stomach" [facility] [address] [facility], [place], [place] | Pharmacy, Wellness ... Patient then went on "since I have you on the phone" she asked me if I can request Ilene t o give her a call back in regards to an issue with her Pain specialist down in [place] is closing down because of health issues and they just put that on there web site. She said th at Ilene would know which doctor she was referring to she is the [facility] specialist that was h elping her and now that she will be closing she states" she is in urgent need to find a new one" Please give patient a call back so she can have someone help her figure out what to do about this she states. Notified Ilene about this issue Last Encounter with [facility]: Last Appointment in [facility] was on 10/19/17 [id number] 2:18 pm with TERESA Banuelos. Future Appointments: Next Appointment in [facility] is on 10/26/17 at 4:15 pm with Richie Sims MD. Patient's Preferred Pharmacy: Pharmacy Preferences: [facility] [address] [place] [address] Hours: 8am-9pm Mon-fri; 9-5:30pm Sat-sun E-Prescribing: Yes E-Prescribing Control Substances: Yes [facility] [place] [address] Hours: 9am-9pm Mon-fri / 9am-7pm Sat / 10am-6pm Sun E-Prescribing: Yes E-Prescribing Control Substances: Yes [id number] [address] [place] [address] Hours: 9am-7pm Mon-fri / 9am-6pm Sat / 10am-5pm Sun E-Prescribing: Yes E-Prescribing Control Substances: Yes documented in this encounter Plan of Treatment Not on filedocumented as of this encounter Visit Diagnoses Not on filedocumented in this encounter
--- OUTSIDE RECORDS SUMMARY | ~2020-08-23 | XMS | Encounter Summary ---
Demographics + + + | Address | [address] | | | [place] [address] | + + + | Home Phone [...] Providers + +------+ + | Care Farm Equipment Engineer Name | Role | Phone | + +------+ + | Justo Vazquez MD | PCP | | + +------+ + Encounter Details +--------+ + + + + | Date | Type | Department | Care Team | Description | +--------+ + + + + | 12/05/ | Procedure | [facility] | | | | 2019 | Pass | [place] [facility] | | | | | | and Healing Surgery | | | | | | Center Admitting | | | | | | Desk Located on the | | | | | | 4th floor [address] | | | | | | [address] [place], | | | | | | [place] [address] | | | +--------+ + + + [...]
--- OUTSIDE RECORDS SUMMARY | ~2020-08-23 | XMS | Encounter Summary ---
Demographics + + + | Address | [address] | | | [place] [address] | + + + | Home Phone [...] Team Providers + +------+ + | Care Tool Shaper Setup Operator Name | Role | Phone | [...] + | 08/08/ | Emergency | [facility] Emergency | Mable Villarreal MD | | | 2015 | | Department [address] | [address] [facility] [address] | | | | | [address] | [address] | | | | | [facility] | [place], [place] | | | | | [place], [place] | [address] | | | | | [address] | [phone] | | | | | [phone] | | | | | | | [...] about "Gastroparesis: Care Instructions", log into your [employer] account at ht [email or web address]. You can enter M106 in the [employer] search box. Not on [employer]? Review the [employer] section of your After Visit Summary for directions on ho w to sign up. [phone] [employer]. Care instructions adapted under license by [facility] [employer]. This care instruction is for use with your licensed healthcar e professional. If you have questions about a medical condition or this instruction, always ask your healthcare professional. [employer] disclaims any warranty or liabili ty for your use of this information. Content Version: 11.0.457992; Current as of: October 03, 2015 documented [...] + + documented as of this encounter ED Notes Nu Merritt, FORTUNATO - 08/08/2016 5:34 PM PDTRN DISCHARGE NOTE: The patient and parents verbalizes understanding of written discharge/home care instruction s as a evidenced by Follow-up plan of care reviewed w/ patient, Pt voiced understanding of p antoinette of care, Written dx instructions reviewed w/ patient and Patient advised not to drive. The patient was discharged Ambulatory via Private Vehicle with family in no emergent distres s. Natalia Gaytan RN - 08/08/2016 4:45 PM PDTPt tolerated oral medication and water. Respirations even and unlabored. NAD at this time. 5 :35 PM Radha Angeles MD,MPH - 08/08/2016 3:06 PM PDTIPAS(S) Handoff Note I received sign-out and accepted care of this patient from the departing resident and atten ding at 3:06 PM. Please see the primary providers note for complete elements of the histo ry, physical exam, and ED course. Illness Severity: Stable Patient Summary: Most recent vital signs: BP 123/77 | Pulse 81 | Temp 36.7 C | RR 12 | Ht 1.651 m (5' 5") | Wt 65.772 kg (145 lb) | SpO2 100% | BMI 24.13 kg/(m^2) Tracie Farah is a 26 y.o. female with a PMHx of gastroparesis presented to the ED with flare of gastroparesis. Story told by mom is that it has been going on for weeks. Carolyn ceballos has a GI referral for [facility]. Difficult IV access Toradol Fluids Haldol IM After re-assessment, ativan PO and IV acetaminophen No CT scan - belly soft and non-distended Admitted 1 year ago with significant work up, all of which negative Lab and imaging results: Pending Action plan (To Do): Follow up labs Possible expedited outpatient GI referral Symptom control, then discharge ED Course Following Sign Out: Primary team discussed the case with gastroenterology who will expedite their follow-up Labs returned notable for hyperkalemia of 5.7, likely hemolyzed Patient treated with fluids and repeat was 3.7 The patient was discharged with GI follow-up and some Zofran for symptomatic control. Radha Yoo MD,MPH Paulo Cantu RN - 08/08/2016 2:51 PM PDTIv therapy is at bedside. Pt resting quietly. Nu Gaytan RN - 08/08/2016 2:00 PM PD TUnsuccessful PIV attempt. Nu Gaytan RN - 08/08/2016 1:30 PM PDTUnsuccessful PIV attempt by other RN. Nu Gaytan RN - 08/08/2016 12:53 PM OCTAVIO Gillespie at bedside. Agree with triage note. Pt en dorses continuous nausea, spitting up bile, and 8/10 upper abdominal pain that is worse in t he epigastric region. No fevers, chills, or urinary symptoms. PMH gastroparesis x 1 year and CRPS in [place]. Mom at bedside. 12 :56 PM Rios, Mable Odom MD - 08/08/2016 12:52 PM PDTFormatting of this note might be diffe rent from the original. ED Shared Provider Note, co-authored by Dr Hayes and Mabel Villarreal MD: Abdominal pain Associated symptoms include nausea, vomiting and constipation. Pertinent negatives include diarrhea and dysuria. Ms Farah is a 26yo F coming to the ED with gastroparesis symptoms. She was diagnosed wit h gastroparesis a year ago. Since then has been in and out of the hospital several times fo r persistent symptoms. She states she has been having a flair since Jul 19. For this p articular flair, she tried Toradol without improvement. Went to [facility] and was admitted, discharged 2 days ago without much improvement, slight decrease in pain but still vomiting. After 8 hours symptoms returned, symptoms have been worsening since. She has tri ed ketamine intranasal, lamotrigine, reglan, ativan without much improvement. Describes aching abdominal pain. Vomiting multiple times, unable to hold down po. Vomitin g is yellow, bile appearing. No fever or chills. No diarrhea, does have chronic constipati on. No urinary symptoms or vaginal discharge. She reports this flair is exactly the same as her prior flairs. PCP: BJORN Villalpando Patient Active Problem List Diagnosis Date Noted Epigastric pain 10/22/2015 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 10/22/2015 Constipation 10/22/2015 Pain in joint, lower leg 02/29/2012 Disturbance in sleep behavior 02/29/2012 Overview Note: ICD10 CRPS (complex regional pain syndrome), lower limb 02/14/2012 Overview Note: Left, injury 2001, multiple surgical procedures Gait disturbance 02/14/2012 Muscle pain 02/14/2012 Overview Note: Diffuse with fibromyalgia points positive Adjustment reaction 02/14/2012 Past Medical History Diagnosis Date Other chronic [...] [facility], Surgeon: Janak Riojas MD Medications Prior to Admission Medications Prescriptions Last Dose Informant Patient Reported? Taking? LORazepam 1 mg Oral Tablet Yes Yes Sig: Take 2 mg by mouth every four hours as needed. ketamine 100 mg/mL injection solution Yes Yes Simg/Ml Susu. Takes intranasal every 3 hrs prn lamoTRIgine 200 mg oral tablet Yes No Sig: Take 1 tablet by mouth every morning and 2 tablets by mouth every evening levonorgestrel (MIRENA) 20 mcg/24 hr Intrauterine IUD Yes Yes Si Each by Intrauterine route once. May be removed and replaced with a new unit at anyt ari during menstrual cycle; do not leave any one system in place for > 5 years. metoclopramide HCl 10 mg oral tablet Yes Yes Sig: Take 10 mg by mouth every six hours as needed. naltrexone 50 mg oral tablet Yes No ondansetron ODT (ZOFRAN ODT) 4 mg oral tablet,disintegrating No No Sig: Dissolve 1 tablet in mouth every twelve hours as needed for nausea/vomiting. pantoprazole 40 mg oral tablet,delayed release (DR/EC) Yes Yes Sig: Take 40 mg by mouth two times daily. polyethylene glycol 17 gram/dose oral powder No No Sig: Take 17 g by mouth once daily. Facility-Administered Medications: None Allergies Allergen Reactions Morphine Anaphylaxis Social History reports that she has never used tobacco. She reports that she does not currently drink al cohol or use drugs. Family History Problem Relation Alcohol/Drug Maternal Grandfather Allergies Mother Allergies Father Allergies Brother Allergies Maternal Grandfather Arthritis Maternal Grandmother Arthritis Maternal Grandfather Arthritis Paternal Grandmother Arthritis Paternal Grandfather Asthma Brother Asthma Maternal Grandfather Diabetes Paternal Grandmother Headache Mother Headache Maternal Grandmother Hypertension Mother Hypertension Father Stroke Maternal Grandfather Review of Systems Respiratory: Negative for shortness of breath. Gastrointestinal: Positive for nausea, vomiting, abdominal pain and constipation. Negative for diarrhea. Genitourinary: Negative for dysuria and flank pain. Musculoskeletal: Negative for back pain. All other systems reviewed and are negative. ED Triage Vitals BP Temp Pulse Pulse - Plethysmograph Resp SpO2 08/08/16 1225 08/08/16 1225 08/08/16 1225 -- 08/08/16 1225 08/08/16 1225 123/77 mmHg 36.7 C 81 12 100 % Physical Exam Constitutional: She is oriented to person, place, and time. She appears distressed. Chronically ill appearing, uncomfortable HENT: Head: Normocephalic and atraumatic. Mouth/Throat: Oropharynx is clear and moist. Eyes: Conjunctivae are normal. Pupils are equal, round, and reactive to light. No scleral i cterus. Neck: Normal range of motion. Neck supple. Cardiovascular: Normal rate, regular rhythm and normal heart sounds. Pulmonary/Chest: Effort normal. No respiratory distress. Abdominal: Soft. She exhibits no distension. There is tenderness (epigastric). There is no rebound and no guarding. Diffuse midline ttp no masses rebound or guarding Musculoskeletal: Normal range of motion. She exhibits no edema. Neurological: She is alert and oriented to person, place, and time. Skin: Skin is warm and dry. Nursing note and vitals reviewed. ED COURSE AND MEDICAL DECISION MAKIN-year-old female with past medical history of gastroparesis who presents to abdominal [facility] n. She is uncomfortable appearing but is nontoxic. Her vital signs are stable. Her physical exam is notable for mild abdominal tenderness without peritoneal findings. Presentation conc erning for: Gastroparesis flair, pancreatitis, hepatobiliary disease, gastritis, GERD, IBS. She was treated initially with IV Toradol, fluids and IM Haldol. Basic lab work was obtaine d. Overall presentation most consistent with gastroparesis flair as she denies any difference in this episode from her previous flares. Her abdominal exam is mild diffusely ttp without l ocalizing signs, no peritoneal signs, soft. Do not feel imaging is indicated given her sx a nd history chronic in nature as well as reassuring exam. She was signed out to the oncoming team pending continued symptoms management and PO trial. At the time of signout her lab wor k was pending. As she has already been referred to [facility] gastroenterology they'll be contacted to help faci litate a follow-up appointment. ED Medication Administration from 08/08/2016 1221 to 08/08/2016 1537 Date/Time Order Dose Route Action 08/08/2016 1517 acetaminophen (OFIRMEV) IV 1,000 mg 1,000 mg intravenous Given/New Bag 08/08/2016 1433 haloperidol lactate (HALDOL) injection 2.5 mg 2.5 mg intramuscular Given 08/08/2016 1456 ketorolac (TORADOL) injection 30 mg 30 mg intravenous ED/Clinic Push 08/08/2016 1517 LORazepam (ATIVAN) tablet 1 mg 1 mg oral Given 08/08/2016 1457 NaCl 0.9 % solution 1,000 mL intravenous Given/New Bag IMPRESSION: R10.9 Abdominal pain, unspecified abdominal location K31.84 Gastroparesis PLAN, DISPOSITION AND FOLLOW-UP: Signed out to oncoming team pending further symptom control Mable Villarreal, Faculty Note: I saw and evaluated the patient and discussed the diagnosis, management, and interpretatio n of results with the resident. I performed and confirmed the bocanegra portions of the service. I have reviewed and agree with the documentation in the provider note. Coauthored note with resident using [employer] share function. See note above for my additions and corrections. Mable Villarreal MD [facility] Department of Emergency Medicine Catie Zeng RN - 08/08/2016 12:23 PM Patricia Rene, speaking for pt. Pt w/ gastroparesis x 1 year. Was d/c from [facility] 2 days ago w/o relief. abd pain, N/V documented in this encounter Plan of Treatment [...] | | | LABORATORY | | | [facility] | | | SERVICES, | | | [...] | + + + + + | [facility] | [address] | [place] [address] | | | SERVICES, CORE | [address] [...] + + + + + + | [facility] | [address] | [address] | [facility] [...] + + + + + | [facility] | [address] | [place], [place] | | | CARDIOLOGY | [address] | [address] | | + + + + + [...] + + + + + | [facility] | [address] | [place] [address] | | | SERVICES, CORE | PARK [...] | + + + + + | [facility] | [address] | [place] [address] | | | SERVICES, LILLIAN | [address] | | | + + + + + AYLEEN TORRES ONLY (08/08/2016 2:59 PM PDT) + + [...] + + + + + | [facility] | [address] | [place] [address] | | | SERVICES, CORE | PARK [...] [facility] | [address] | [place] [address] | | | SERVICES, CORE | PARK [...] | + + + + + | [facility] | [address] | [place] [address] | | | [place] | | | | + + + [...] | + + + + + | [facility] | [address] | [place] [address] | | | SERVICES, CORE | [address] [...] + + + + + + | STEFFENO # | 0.04 | 0.00 - 0.10 [...] + + + + + | [facility] | [address] | [place] [address] | | | SERVICES, CORE | [address]LLERMO [...] [facility] | [address] | [place] [address] | | | SERVICES, CORE | PARK [...] | | | LABORATORY | | | [facility] | | | SERVICES, | | | [...] | + + + + + | [facility] | [address] | [place] [address] | | | SERVICES, CORE | [address] | | | + + + + + ED INFORMATION EXCHANGE (08/08/2016 12:21 PM PDT) + + + + + + | Component | Value | Ref Range | Performed | Pathologist | | | | | At | Signature | + + + + + + | [facility] | [id number] | | COLLECTIVE | | | | [id number] | | MEDICAL | | | | [...] ------- ---- | | | 08/08/2016 12:21 [facility] | | | [facility]. [place] Emergency [id number]. abd pain | | | 08/04/2016 03:50 [facility] Mauricio | | | [place]. [place] Emergency ABD PAIN,VOMITING 06/26/2016 22:44 | | | [place]. [place] | | | Emergency -Acquired absence of other specified parts of | | | | | | digestive | | | tract | | | | | | -Gastroparesis | | | | | | -Unspecified abdominal pain | | | | | | -Gastro-esophageal reflux disease without | | | esophagitis | | | | | | -Other longterm (current) drug therapy 06/22/2016 17:35 | | | [facility] [place] | | | Emergency -abd pain, "I have gastroparesis", since , seen | | | | | | at [facility] | | | [facility] yesterday. has been to the er | | | | | | several times | | | | | | -Abdominal Pain | | | | | | -Gastroparesis 06/19/2016 | | | 04:51 [facility] [place] | | | [place] Emergency -Gastroparesis | | | | | | -Unspecified abdominal pain | | | | | | -Other termite control representative | | | (current) drug therapy | | | | | | -Acquired absence of other specified parts of | | | | | | digestive tract | | | 06/18/2016 07:[address] [facility] | | | [place] Emergency [...] Location ------ --------- 1 | | | [facility] 1 | | | [facility] | | | Total Note: Visits [...] [facility] | [address] | [place], [place] | [phone] | | TECHNOLOGIES | [address] | [address] | | + + + + + [...] | | | | | 1 dose, Chanell 08/08/16 at 1345 | | PM PDT | | | | + +---------+ +-------+---+---+ +---+---+ | | | +---+---+ + +-------+ +------+---+---+ | LORazepam (ATIVAN) tablet 1 mg | Given | 08/08/20 | 1 mg | | | | 1 mg, oral, ONCE, 1 dose, [place] | | 16 3:17 | | | [...]
--- OUTSIDE RECORDS SUMMARY | ~2020-08-23 | XMS | Encounter Summary ---
Demographics + + + | Address | [address] | | | [place] [address] | + + + | Home Phone [...] Providers + +------+ + | Care Fish And Wildlife Warden Name | Role | Phone | + +------+ + | Justo Vazquez MD | PCP | | + +------+ + Reason for Visit + +--------+ + | Reason | Onset | Comments | | | Date | | + +--------+ + | Refill Request | 10/30/ | | | | 2018 | | + +--------+ + Encounter Details +--------+--------+ + + + | Date | Type | Department | Care Team | Description | +--------+--------+ + + + | 10/30/ | Refill | [facility] | Sdrulla, Alex D, | Refill Request | | 2018 | | Pain Center at | ,PhD [address] | | | | | [facility] | [address] | | | | | [address] | [place], [place] | | | | | [facility] | [address] | | | | | and Healing, | [phone] | | | | | | | | | | | Floor [place], [place] | | | | | | [address] | | | | | | [phone] | | | +--------+--------+ + + + [...] Telephone Encounter - Smita Baca MA - 11/06/2018 11:57 AM PSTCalled [facility] @ . Spoke with account development representative at [facility]. Rep resentative stated that ketamine 100 mg/mL injection solution was called in on Tuesday, 11/03, and that the medication will go out on 11/08/2018. elephone Encounter - Flavia Perez MD - 2017 10:06 AM PSTDr. Sanchez called it in on Tuesday. Please call pharmacy to confirm? Elec tronically signed by Flavia Perez MD at 11/06/2018 10:07 AM PSTTelephone Encounter - Dory Jamil - 10/31/2018 2:14 PM PSTPatient is calling back in regards to her Ketamine. Cesar knutson says that this medication is something she really needs filled out before the pharmacy kt se for the holidays. Routing this to management as well since patient is hoping that other p roviders can prescribe since it does not look like Dr. Sanchez is in the office until Patient would also like to note to not bill through insurance. Patient will pay out of pock et. Pharmacy information [facility] [address] [place] [address] Hours: Ysellolzkqcpda signed by Dory Acosta at 10/31/2018 2:20 PM P STTelephone Encounter - Smita Baca MA - 10/30/2018 6:24 PM PST Routing to provider. Reason for Call: Refill request Patient: Tracie Farah Contact Information: Home Phone Work Phone Message: Description of reason for call: Name of Medication requested: Requested Prescriptions Pending Prescriptions Disp Refills ketamine 100 mg/mL injection solution 5 Si to 30 sprays in each nostril every 3 hrs as needed for pain as directed by mandeep falk. Concentration is 150mg/mL. Compounded by [facility] ([phone]) Patient has been compliant with [facility] treatment plan: yes Smita Baca MA Last Encounter with [facility]: Last Appointment in [facility] was on 10/09/18 at 3:42 pm with Alex Sanchez MD,PhD. Future Appointments: No future appointments scheduled in Pain Management. Patient's Preferred Pharmacy: Pharmacy Preferences: [facility] [address] [place] [address] Hours: 8am-9pm Mon-fri; 9-5:30pm Sat-sun E-Prescribing: Yes E-Prescribing Control Substances: Yes [facility] [place] [address] Hours: 9am-9pm Mon-fri / 9am-7pm Sat / 10am-6pm Sun E-Prescribing: Yes E-Prescribing Control Substances: Yes [facility][id number] [address] Hours: 9am-7pm Mon-fri / 9am-6pm Sat / 10am-5pm Sun E-Prescribing: Yes E-Prescribing Control Substances: Yes [facility] [address] [place] [address] Hours: E-Prescribing: Yes E-Prescribing Control Substances: Yes [facility] [address] [facility] Room [address] [place] [address] Hours: 8am-6pm Mon-fri E-Prescribing: Yes E-Prescribing Control Substances: Yes [facility] [address] [address] [place] [address] Hours: M-sat 9am/7pm,sun 11am/3pm E-Prescribing: Yes E-Prescribing Control Substances: Yes [facility] [employer] [address] [address] Hours: E-Prescribing: Yes E-Prescribing Control Substances: Yes elephone Encounter - Vicenta Smith - 10/30/2018 2:35 PM PSTFormatting of this note might be different from t he original. Does patient have confidential voicemail so we can leave detailed messages?: Yes Reason for call: Medication Refill. Prescription refill? Yes If yes: Name of Medication: ketamine 100 mg/mL injection solution 5 08/08/2018 Si to 30 sprays in each nostril every 3 hrs as needed for pain as directed by physici an. Concentration is 150mg/mL. Compounded by [facility] ([phone]) Class: eRx JESE: No Reason for Refusal: Other (see comments): Reason for Refusal Comment: Already called and refilled it. Refused By: Alex Sanchez MD,PhD Preferred pharmacy? [facility]. Please type Name of pharmacy and general location, for example "[facility]". This is required so MA and Provider know where to send the refill. documented in this encou nter Plan of Treatment Not on filedocumented as of this encounter Visit Diagnoses Not on filedocumented in this encounter
--- OUTSIDE RECORDS SUMMARY | ~2020-08-23 | XMS | Encounter Summary ---
Demographics + + + | Address | [address] | | | [place] [address] | + + + | Home Phone [...] Providers + +------+ + | Care Casing Fluid Tender Name | Role | Phone | + +------+ + | Justo Vazquez MD | PCP | | + +------+ + Encounter Details +--------+ + + + + | Date | Type | Department | Care Team | Description | +--------+ + + + + | 03/12/ | Telephone | [facility] | Alex Sanchez, | | | 2019 | | Pain Center at | ,PhD [address] | | | | | [facility] | [address] | | | | | [address] | [place], [place] | | | | | [place] [facility] | [address] | | | | | and Healing, | [phone] | | | | | | | | | | | Floor [place], [place] | | | | | | [address] | | | | | | [phone] | | | +--------+ + + + [...] Telephone Encounter - Estefany March MA - 03/12/2019 1:[address] Dorian hoffmann signed by Estefany March MA at 03/12/2019 1:42 PM PDTTelephone Encounter - Aliya Alcala - 03/12/2019 9:37 AM PDTPatient is calling because she is having a really bad flare up p atient is in tear. (unable to really understand her because she is crying so much)..patient did say that she was on her feet for a little bit this pass weekend and has CRPS and now has this really bad flare up from it. She has called her PCP and they have strict no opioid med ication policy. Patient was given some from [facility] on 01/29/2019 for 48 tablets of Norc o 10-325 for a procedure she got done. But that was for something else. Patient states she lives in [facility] and isn't able to come in or schedule. Patient just wa nts someone to inform the ER. @ [facility] department in [facility]. If she has to go in there for pain medication if we can help prescribe anything to her so she doesn't hav e too look like a drug seeker. Please review and advise patient is requesting a call back if anything could be done for he r. documented in this encounte r Plan of Treatment Not on filedocumented as of this encounter Visit Diagnoses Not on filedocumented in this encounter"
--- OUTSIDE RECORDS SUMMARY | ~2020-08-23 | XMS | Encounter Summary ---
Demographics + + + | Address | [address] | | | [place] [address] | + + + | Home Phone [...] Providers + +------+ + | Care Senior Principal Architect Name | Role | Phone | + +------+ + | Justo Vazquez MD | PCP | | + +------+ + Reason for Visit + +--------+ + | Reason | Onset | Comments | | | Date | | + +--------+ + | Medication Question | 04/15/ | | | | 2016 | | + +--------+ + Encounter Details +--------+ + + + + | Date | Type | Department | Care Team | Description | +--------+ + + + + | 04/15/ | Telephone | Dig[facility]ive Health | Kenny Gaspar MD | Medication Question | | 2016 | | [place] [address] [address] | | | | | | [facility] | | | | | | for Health and | | | | | | [facility], [facility] [address] | | | | | | [place], [place] | | | | | | [address] | | | | | | [phone] | | | +--------+ + + + [...] Telephone Encounter - Tala Burns RN - 04/18/2017 3:23 PM PDTMsg sent about neurolo gy referral. ----- Message ----- From: Kenny Gaspar MD Sent: 04/18/2017 3:09 PM To: Tala Burns RN Thanks Tala. Let's wait for her appointment. If it's something pain mgmt recommends, her PCP can make t he referral. elephon e Encounter - Tala Burns RN - 04/18/2017 8:14 AM PDTSpoke with Tracie and relayed Dr Pj Gaspar's message below. Tracie reports she spoke with her PCP today and she will be admitted to the local hospital f or pain control. She confirms she is planning on making it to the 04/25 pain management appointment at [facility]. She requests a neurology referral for further workup of possible abdominal migraines, if ap propriate. I let her know Dr. Gaspar will review and I will get back to her with his response. She is agreeable to plan. ----- Message ----- From: Kenny Gaspar MD Sent: 04/18/2017 8:09 AM To: Tala Burns RN I don't recall her having a history of migranes or even headaches. Regardless, we would no t prescribe triptans. If she does have migranes/headaches, a neuro referral may be warrante d, but this is something which would be better for her to wait and discuss with pain mgmt fo r a holistic approach. P DTTelephone Encounter - Tala Burns RN - 04/15/2017 1:05 PM PDTKelly states [facility] is refusing to fill ketorolac PO Rx. We have been having several issues with t he pharmacist there refusing prescriptions and not contacting us. Per Tracie's request, eRx sent to [facility] in [place]. Tracie will contact us if she has fur ther trouble getting the medication.Electronically signed by Tala Burns RN at 017 1:08 PM PDTTelephone Encounter - Crys Gomez MD - 04/15/2017 9:09 AM PDTLamar's j ust wait until Kenny is back next week as he knows her much better. Thanks! elephone E ncounter - Tala Burns RN - 04/15/2017 8:41 AM PDTLet Tracie know that toradol Rx was refilled by covering physician. She is asking about trying Zomig for possible abdominal migraines. This was suggested to he r last weekend when she was in the ED for abdominal pain, though the provider that mentioned it was not willing to prescribe it. She has not been diagnosed with abdominal migraines at this time. Let her know I would check with MD and let her know the response. Still looking f orward to pain management consult on 04/25/17. Tracie has been having issues with her local pharmacy not filling prescriptions we have sent , citing concern for her kidney function. Unfortuantely the pharmacy has not reached out to us in the past, but rather asked Tracie to call us about it. I encouraged her to give the [facility] the clinic number so they can speak with us directly (and our phone number is included on the prescription) so we can discuss if needed. elephone Encounter - Hubert Odonnell - 04/15/2017 8:22 AM PDTP atient called in stating that she was in pain and having issues. PAS mentioned that requested Ketorolac has been approved. Patient noted that her pharmacy is concerned about possible kidney damage and has been relu ctant to fill that script in the past Patient also mentioned that she had heard of "Zonig" (sp?) that may be helpful for people i n her circumstances Patient wonders if that might be an alternative to Ketorolac... Patient seeks call back to discuss. 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
--- OUTSIDE RECORDS SUMMARY | ~2020-08-23 | XMS | Encounter Summary ---
Demographics + + + | Address | [address] | | | [place] [address] | + + + | Home Phone [...] Team Providers + +------+ + | Care Vaccine Customer Representative Name | Role | Phone | [...] | | | | | syndrome | [facility] | [facility] | | | | | type [address] of | [address] | [address] [place], | | | | | left lower | [facility] [place] | [place] | | | | | extremity | [address] | [address] | | | | | Procedures | Phone: | Phone: | | | | | REQUEST TO | [phone] | [phone] | | | | | SURGERY | Fax: | Fax: | | | | | BREW HOUSE SUPERVISOR | [phone] | [phone] | +--------+---------+ + + + + Physical [...] | | | | regional | ,PhD 3691 | OTPTRehab | | | | | pain | [facility] | [address] | | | | | syndrome | [facility] | [facility] | | | | | type 1 of | Rd | [place] | | | | | left lower | [place], [place] | [address] | | | | | extremity | [address] | Phone: | | | | | Procedures | Phone: | [phone] | | | | | PHYSICAL | [phone] | Fax: | | | | | THERAPY | Fax: | [phone] | | | | | REFERRAL | [phone] | | +--------+--------+ + + + + [...] | | | | | Procedures | [place], [place] | Rd [place], | | | | | CONSULT TO | [address] | [place] | | | | | PAIN | | [address] | | | | | MANAGEMENT | | Phone: | | | | | | | [phone] | | | | | | | Fax: | | | | | | | [phone] | +--------+--------+ + + + + Encounter Details +--------+---------+ + + + | Date | Type | Department | Care Team | Description | +--------+---------+ + + + | 06/12/ | Office | [facility] Comprehensive | Alex Sanchez, | Complex regional | | 2018 | Visit | Pain Center at | ,PhD [address] [facility] | pain syndrome type 1 | | | | [facility] | [facility] [address] | of left lower | | | | [address] | [place], [place] | extremity (Primary | | | | Center for Health | [address] | Dx) | | | | and Healing, | [phone] | | | | | | | | | | | Floor [place], [place] | | | | | | [address] | | | | | | [phone] | | | +--------+---------+ + + + [...] Instructions Sonia Key - 06/12/2018 10:00 AM PDTKelly, Thank you for taking the [...] in the future, please contact me via [email or web address] to request an order to schedule. The procedure you discussed with your doctor is called: SCS DRG TRIAL LUMBAR [facility]. Please make sure this is scheduled with the Steam Brush Operator. PRE-PROCEDURE INSTRUCTIONS 1. Please bring a truck driver supervisor with you as we may [...] weeks before your procedure, please contact [facility] to cl arify your instructions. The phone number for questions or concerns is [phone]. documented in this encounter Progress Notes Holly [...] MD,P hD - 06/12/2018 10:00 AM PDT [facility] Return Visit Date: 06/12/2018 Chief Complaint Patient presents with Pain in left leg History of Present Illness: Tracie Farah is a 28 year old female, whose last appoi ntment at the [facility] was May 08, 2018, [...] that this mildly agitated her neck pain. UTILITY TECHNICIAN Brief Pain Inventory: (ten= worst possible [...] Hemroidectomy Trial spinal cord stimulator leads 08/02/2012 [facility], Surgeon: Janak Riojas MD Cholecystectomy Appendectomy [...] History Social History Narrative Single. Goes to [employer] with a light load. Has been working at [employer], can' t work on [employer]. Has roommates. Allergies Allergen Reactions Morphine Anaphylaxis [...] by physician. Concentration is 150mg/mL. Compounded by [facility] ( [phone]) KETOROLAC IM Inject into the muscle (IM). [...] GRAM-5.86 GRAM SOLUTION Take as directed by [facility] Dig[facility]- 2 gallon bowel prep [...] of old medical records (source: [facility]), as summarized in the body of the [...] years, I will review the images from h er latest CT abdomen/pelvis and determine if [...] to send me a mess age via [email or web address] to request referrals to acupuncture and massage [...] by Sonia Key. Alex Sanchez MD PhD School Library Media Program Director Anesthesiology and Pain Management [facility] documented in t his encounter [...]
--- OUTSIDE RECORDS SUMMARY | ~2020-08-23 | XMS | Encounter Summary ---
Demographics + + + | Address | [address] | | | [place] [address] | + + + | Home Phone [...] Providers + +------+ + | Care Nursing Director Name | Role | Phone | + +------+ + | Justo Vazquez MD | PCP | | + +------+ + Reason for Visit + +--------+ + | Reason | Onset | Comments | | | Date | | + +--------+ + | Question | 12/22/ | Megan Marker instructions | | | 2016 | | + +--------+ + Encounter Details +--------+ + + + + | Date | Type | Department | Care Team | Description | +--------+ + + + + | 12/22/ | Telephone | Digestive Health | Ava Carbajal | Question (Megan | | 2017 | | Center at [facility] [address] | MD Melissa | Marker instructions) | | | | [facility] | | | | | | for Health and | | | | | | [facility] 2 | | | | | | [place], [place] | | | | | | [address] | | | | | | [phone] | | | +--------+ + + + [...] Telephone Encounter - Isadora Eller MA - 01/05/2017 10:21 AM PSTPt is scheduled with Dr. Chasity baez 01/11. ele phone Encounter - Ly Wilkins - 01/05/2017 8:46 AM PSTPatient calling to follow up on getting her next steps of treatment. Patient stated she was to be getting a call yesterday but didn't. Parris'sarkis aldrich MA, MA, pt needing to schedule next available office visit with GI Fellow.Electr onically signed by Ly Wilkins at 01/05/2017 8:50 AM PSTTelephone Encounter - Nicolette Reynoso - 01/04/2017 12:42 PM PSTPatient calling and wanting to know her next step aft er the sitz marker. She stated they did the xrays and she wants to know was anything inclusi ve or not? Please call back elephbao ne Encounter - Isadora Eller MA - 12/30/2016 1:18 PM PSTI called and s/w Tracie. Her vomit ing came days after the capsule was ingested and pt only had 1 random loose stool but otherw ise was doing fine. Pt asked if she could resume her miralax. I told her this was fine since we can trust the sitz marker results. She would like to know what the next step is from her e. Routing to provider and will get back to her with next step. elephone Encounter - Isadora Eller MA - 12/30/2016 1:17 PM PST From: Courtney Schwartz PA-C Sent: 12/30/2016 12:10 PM To: Isadora Eller MA Subject: RE: Import The capsule would have been out of her stomach after no more than 4-5 hours from ingestion but was she having diarrhea as well? She might have had a GI bug that could have impacted th e study. Find out about that for me please. Electronically signed by Isadora Eller MA at 1:22 PM PSTTelephone Encounter - Cynthia Pizano - 12/30/2016 12:38 PM PSTPt florin naranjo call to speak with HUGH, routed to dept for call back elephone Encounter - Isadora Eller MA - 12/30/2016 11:07 AM PSTI called Tracie and reached her VM. I asked her to please give me a call back. Office inf ormation provided. elephone Forest - Isadora Eller MA - 12/30/2016 10:[address]St[address] Noel hasn't sent these over at this time. I called and requested images pushed to impax and report faxed to us. elephone Encounter - Cynthia Pizano - 12/30 10:13 AM PSTPatient wanting to know if we got reports of yesterdays sitz marker, she i s wanting to start taking Miralax and needing to discuss with HUGH. Routed to dept for call melanie breen. elephone Encounter - Isadora Eller MA - 12/22/2016 1:53 PM PSTPt returned my phone call. [facility] has pts t sintia an xray, swallow the pill and then come back on day 5 and 8. We discussed our directions and she asked that I send this information to [facility] radiology. I agreed to do so and if she continues to have any trouble I can call the radiology team at [facility] and handl e it that way. She appreciated the help and had no questions at this time. Electronically si gned by Isadora Eller MA at 12/22/2016 2:00 PM PSTTelephone Encounter - Sabiha Barros - 12/22/2016 1:52 PM PSTPatient returned call to HUGH. Inés REESE, call connected elephone Encounter - Isadora Eller MA - 12/22/2016 1:41 PM PSTI called pt on the num indira she requested. Reached her VM. I lvm for her asking for a call back to discuss further. Office information provided. elephone Encounter - Buzz Gibbs MA - 12/22/2016 11:04 AM PSTPt called in stating she got different instructio ns from radiology in [place] so she wants a call back to make sure she is doing the sitz m arker correctly. Please call back at [phone]. documented in this encounter Plan of Treatment Not on filedocumented as of this encounter Visit Diagnoses + + | Diagnosis | + + | Constipation, unspecified constipation type - Primary | + + documented in this encounter"
--- OUTSIDE RECORDS SUMMARY | ~2020-08-23 | XMS | Encounter Summary ---
Demographics + + + | Address | [address] | | | [place] [address] | + + + | Home Phone [...] +------+ + | Care Fruit Or Nut Picker Name | Role | Phone | [...] Approved | | | | Giuliana Maldonado [place], | | | | | | [place] [address] | | | +--------+ + + + [...] Telephone Encounter - Vivian Escudero - 07/25/2012 12:39 PM PDTReceived E-mail to do amalia naranjo form on Pt. Called and left message. Electronically signed by Vivian Escudero at 2011 12:40 PM PDTdocumented in this encounter Plan of Treatment Not on filedocumented as of this encounter Visit Diagnoses Not on filedocumented in this encounter"
--- OUTSIDE RECORDS SUMMARY | ~2020-08-23 | XMS | Encounter Summary ---
Demographics + + + | Address | [address] | | | [place] [address] | + + + | Home Phone [...] Team Providers + +------+ + | Care Billet Inspector Name | Role | Phone | [...] | | | | regional | ,PhD [address] | | | | | | pain | [address] | | | | | | syndrome | [address] | | | | | | type 1 of | Rd | | | | | | left lower | [place], [place] | | | | | | extremity | [address] | | | | | | Other | Phone: | | | | | | chronic pain | [phone] | | | | | | S/P | Fax: | | | | | | insertion of | [phone] | | | | | | spinal [...] | | | | regional | ,PhD 0596 | | | | | | pain | [address] | | | | | | syndrome | [address] | | | | | | type 1 of | Rd | | | | | | left lower | [place], [place] | | | | | | extremity | [address] | | | | | | Other | Phone: | | | | | | chronic pain | [phone] | | | | | | S/P | Fax: | | | | | | insertion of | [phone] | | | | | | spinal [...] + + | 04/26/ | Telephone | [facility] Comprehensive | Alex Sanchez, | | | 2019 | | Pain Center at | ,PhD [address] | | | | | [facility] | [address] | | | | | [address] | [place], [place] | | | | | [facility] | [address] | | | | | and Healing, | [phone] | | | | | | | | | | | Floor [place], [place] | | | | | | [address] | | | | | | [phone] | | | +--------+ + + + [...] encounter Miscellaneous Notes Telephone Encounter - Vanessa Reyna - 04/27/2019 12:05 PM PDTPatient would like a third r eferral sent to [facility] Rgmscxrtpcoaer signed by Vanessa lidnsay at 04/27/2019 12:06 PM PDTTelephone Encounter - Estefany March MA - 04/27/2019 7:44 A M PDTTwo external referrals placed. 7 :47 AM PDTTelephone Encounter - Vanessa Reyna - 04/26/2019 4:58 PM PDTDoes patient have c onfidential voicemail so we can leave detailed messages?: Yes Reason for call: Patient is wanting referral sent to Orthopedist. [facility] Attn: Charline F: [phone] [facility] F: [phone] Do you need an order or results? Order? yes Results ? No What type? (MRI, xray,labs, referrals to other places, procedure, etc) Referral to Ortho pedics documented in this enco unter Plan of [...]
--- OUTSIDE RECORDS SUMMARY | ~2020-08-23 | XMS | Encounter Summary ---
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 | | | | Therapy | CRPS | Janak Martinez MD | [address] [address] | | | | | (complex | [address] | | | | | regional | [address] | Mailcode: | | | | | pain | Mailstop | [facility] | | | | | syndrome), | [id number] | for Health | | | | | lower limb | [place], [place] | and Healing, | | | | | Gait | [address] | [address] | | | | | disturbance | Phone: | [place], [place] | | | | | Muscle pain | [phone] | [address] | | | | | Procedures | Fax: | Phone: | | | | | PHYSICAL | [phone] | [phone] | | | | | THERAPY | [...] | | | | [place] | [place] [address] | syndrome), lower | | | | [address] | [phone] | limb (Primary Dx) | | | | [facility] | | | | | | and Healing, | | | | | | Building [address], | | | | | | Floor [place], [place] | | | | | | [address] | | | | | | [phone] | | | +--------+---------+ + + + [...] might be different f rom the original. [id number] BRODY FARAH Date of : 1990 Start of care: 02/14/2012 Date of onset: 02/14/2012 Referring/Attending Practitioner: Janak Riojas MD . Primary/Referral Diagnosis/ICD-9: 355.71B CRPS (complex regional pain syndrome), lower limb Insurance: Payor: [facility] Plan: BCBS OUT OF STATE Product Type: PP O Service period from: 02/14/2012 to: 08/12/2012 Number visits used/authorized: 11/25 [facility] PHYSICAL THERAPY INITIAL EVALUATION SUBJECTIVE: [...] no pain relief. Admitted to the inpatient [facility] program for 1 month in the summer [...] Diagnostic evaluation: Records from CRPS program at [facility]. Suggest three phase bone sca [...] by the psychologists here at the [facility]. 2.2 Physical therapy can reduce pain and improve functional status. Suggest Guillermo Sanon. 3. Medication suggestions: 3.1 Continue titrating up duloxetine. 3.2 As for any patient being managed with chronic opioids, we do recommend that the patient have a signed [facility] Material Risk Notice, agree to whatever [...] and hemr oidectomy. Social History: [place] provided with a token and bocanegra for [facility] training site. Treatment began: 1345hrs Treatment ended: 1430hrs Manual therapy: 0min Therapeutic exercise: 15 min ASSESSMENT: pt presents with 10-year history of ankle pain post trauma and multiple surgeri es. She thinks she developed CRPS in 2004. She was diagnosed with CRPS and spent a month in the program at [facility] working through aggressive desensitization and activation which prov ided no lasting benefit. She lives in [place], is going to school, and ambulates with [...] She can work with her PT in [place]. CLINICAL PRIORITIES: 1-follow up with Dr Riojas [...] change in their status. Guillermo Sanon MSPT [facility] Outpatient Rehabilitation Services Mailcode: Ch[facility] [address] [facility], [address] [facility] [address] documented in this encounter Plan of Treatment Not on filedocumented as of this encounter Procedures + +--------+ + + + | Procedure Name | Priori | Date/Time | Associated Diagnosis | Comments | | | ty | | | | + +--------+ + + + | MS THERAPEUTIC | Routin | 02/16/2012 | CRPS (complex | | | EXERCISES | e | 3:34 PM | regional pain | | | | | PDT | syndrome), lower | | | | | | limb | | + +--------+ + + + | MS PHYS THERAPY | Routin | 02/16/2012 | [...]
--- OUTSIDE RECORDS SUMMARY | ~2020-08-23 | XMS | Encounter Summary ---
Demographics + + + | Address | [address] | | | [place] [address] | + + + | Home Phone [...] Providers + +------+ + | Care Field Secretary Name | Role | Phone | + +------+ + | Justo Vazquez MD | PCP | | + +------+ + Reason for Visit + +--------+ + | Reason | Onset | Comments | | | Date | | + +--------+ + | Question | 08/09/ | | | | 2016 | | + +--------+ + Encounter Details +--------+ + + + + | Date | Type | Department | Care Team | Description | +--------+ + + + + | 08/09/ | Telephone | [facility] | Ilene Bright, | Question | | 2016 | | Pain Center at | COMPUTER DISCOVERY TEACHER [address] | | | | | [facility] | [place], [place] | | | | | [address] | [address] | | | | | [facility] | [phone] | | | | | and Healing, | | | | | | Building , | | | | | | Floor [place], [place] | | | | | | [address] | | | | | | [phone] | | | +--------+ + + + [...] Telephone Encounter - Ilene Bright FNP - 08/11/2017 3:36 PM PDTSpoke with Tracie. Doing OK, has not had any pain flares since we last met. Gluten sensitivity testing was negative/ She is going to pursue elimination diet that we discussed at her last visit. She inquires about further food allergy testing-I will defer to GI (Dr. Gaspar) for this. Tracie will keep me in the loop as to how she is doing on going. Ilene Childs DNP, COMPUTER DISCOVERY TEACHER-C [facility] [address] [place] [id number] elephone Encounter - Vanessa Edmondson - 08/09/2017 12:01 PM PDTFormatting of this note might be different from the o riginal. Reason for Call: No chief complaint on file. Patient: Tracie Farah Contact Information: Home Phone Work Phone Message: Description of reason for call: patient called and would like know since everything came ba ck fine in the gluten blood test, if she should still get the allergy test done, she would l livan a phone call about this Last Encounter with [facility]: Last Appointment in [facility] was on 07/28/17 [id number] 12:01 pm with TERESA Banuelos. Future Appointments: Next Appointment in [facility] is on 10/11/17 at 10:20 am with Jamel Madden, PhD. Patient's Preferred Pharmacy: Pharmacy Preferences: [facility] [address] [place] [address] Hours: 8am-9pm Mon-fri; 9-5:30pm Sat-sun E-Prescribing: Yes E-Prescribing Control Substances: Yes [facility] [facility] [address] [facility] [place] [address] Hours: 9am-9pm Mon-fri / 9am-7pm Sat / 10am-6pm Sun E-Prescribing: Yes E-Prescribing Control Substances: Yes [facility][id number] [address] [place] [address] Hours: 9am-7pm Mon-fri / 9am-6pm Sat / 10am-5pm Sun E-Prescribing: Yes E-Prescribing Control Substances: Yes documented in this encounter Plan of Treatment Not on filedocumented as of this encounter Visit Diagnoses Not on filedocumented in this encounter"
--- OUTSIDE RECORDS SUMMARY | ~2020-08-23 | XMS | Encounter Summary ---
Demographics + + + | Address | [address] | | | [place] [address] | + + + | Home Phone [...] Team Providers + +------+ + | Care Layboy Operator Name | Role | Phone | + +------+ + | Justo Vazquez MD | PCP | | + +------+ + Reason for Visit + +--------+ + | Reason | Onset | Comments | | | Date | | + +--------+ + | Foot pain | | | + +--------+ + | Knee pain | | | + +--------+ + | Procedure | 09/25/ | | | | 2017 | | [...] | | | | | extremity | [address] | [address] | | | | | Procedures | Phone: | Phone: | | | | | REQUEST TO | [phone] | [phone] | | | | | SURGERY | Fax: | Fax: | | | | | AUTOMOBILE RADIO REPAIRER | [phone] | [phone] | +--------+---------+ + + + + Encounter Details +--------+ + + + + | Date | Type | Department | Care Team | Description | +--------+ + + + + | 09/25/ | Procedure | Pain Center at [facility] | Alex Sanchez, | Foot pain; Knee | | 2018 | | [address] | ,PhD [address] [facility] | pain; Procedure | | | | Center for [facility] | [facility] | | | | | and Healing, | [place], [place] | | | | | [facility] | [address] | | | | | Floor [place], [place] | [phone] | | | | | [address] | | | | | | [phone] | | | +--------+ + + + [...] PM PST [facility] Pain Center Patient Instructions - Post Interventional Procedure Date: 09/25/2018 Name: Tracie Farah Date of : 1990 Procedure Performed: SCS DRG TRIAL LUMBAR [facility]. Procedure Provider: Alex Sanchez MD,PhD If you have any problems you believe are associated with your procedure tonight, Please call the Hospital Clerk Analyst, and ask for the Pain Management Consu ltant. If you have problems or questions between 9:00 am and 4:00 pm, Please call the [facility] Pain Center Nurse Triage Line, . [...] symptoms, dressing, SCS function, or chills. During FEATHER EDGER open ho urs, call the FEATHER EDGER ([phone]), after hours call the trench digging machine operator at [facility] ([phone]) and ask for the Adult Pain Service primary care nurse practitioner. Identify yourself as a Comprehensive Pain [...] to the pat ient. Aleta Rebollar MD [facility] Pain Center [id number] signed by Sonia Key at 09/25/2018 3:07 PM PST documented in this encounter Progress Notes Alex Sanchez MD,PhD - 09/25/2018 1:00 PM PSTI was present for the entire procedure ( DRG SCS trial) and all bocanegra elements of this visit. I reviewed the documentation of the othe r FEATHER EDGER providers and concur with Dr. Rebollar's findings. I edited his note. Alex Sanchez MD,PhD Chocolate Packer Anesthesiology and Pain Management [facility] Zain Reyes RN - 09/25/2018 1:00 PM PSTFormatting [...] by physician. Concentration is 150mg/mL. Compounded by [facility] ( [phone]) KETOROLAC IM Inject into the muscle (IM). [...] [facility]- 2 gallon bowel prep POLYETHYLENE [...] Status: 2. Plan: Procedure with moderate sedation oter, FORTUNATO Ledbetter - 09/25 1:00 PM PST RN/WATER FILTER CLEANER PRE-SEDATION: Date: September 25, 2018 Tracie Farah [id number] 1990 ALLERGIES: Morphine Previous reaction to Sedation/Analgesia: [...] started. 1320 2 gr Ancef IV given. RN/WATER FILTER CLEANER History: 1. Has your pain changed from [...] fear of physical activity and social withdrawal ENFoIsadora flaherty RN - 09/25/2018 1:00 PM PSTFormatting of t his note might be different from the original. PRE-SEDATION AND PROCEDURE NOTES: Date: September 25, 2018 Tracie Donaldson [facility] [id number] 1990 ALLERGIES: Morphine Previous reaction to Sedation/Analgesia: [...] Sedation Flow Sheet. Tracie Donaldson [facility] [id number] 1990, presents to clinic for: Procedure: bilateral [...] OPERATIVE NOTE Date: September 25, 2018 Location: [facility] Procedure Room Tracie Farah [id number] :1990, presents to clinic for: PROCEDURE: DRG Spinal Cord Stimuation Trial with [facility] LEVEL/LATERALITY: left L4, L5 PRE-OPERATIVE DIAGNOSIS: G90.522 Complex regional pain syndrome type 1 of left lower extremity POST-OPERATIVE DIAGNOSIS: G90.522 Complex regional pain syndrome type 1 of left lower extremity ATTENDING PHYSICIAN: Alex Sanchez MD,PhD REHABILITATION AIDE/SCHEDULER: Fellow Aleta Rebollar ANESTHESIA: Sedation delivered by [...] sedation. Ms. Farah was escorted to the [facility] Procedure R oom, where she was [...] patient. Ms. Farah was transported to the [facility] Comprehensive Pain Center post-procedure recovery area where she made an uneventful recovery. Programming was performed in the PACU with aid of the device sales representative raw fibers and Ms. Susie faust was sent home with a few programs . This was a unilateral procedure. Alex Sanchez MD,PhD was present for the entire procedure. Images were saved, and sent to [employer]. Ms. Farah was transported to the [facility] Comprehensive Pain Center post-procedure recovery area. She [...] Key. Aleta Rebollar MD PAIN CENTER AT [facility] 15TH FLOOR [address] [facility] Mail Code: Ch15p [place] [address] documented in t his encounter Plan of Treatment Not on filedocumented as of this encounter Procedures + +--------+ + + + | Procedure Name | Priori | Date/Time | Associated Diagnosis | Comments | | | ty | | | | + +--------+ + + + | GA MOD SEDATION | Routin | 09/25/2018 | Complex regional | | | >=5YRS SAME MD/QUAL | e | 7:31 PM | pain syndrome type 1 | | | PROV; INIT 15 MIN | | PST | of left lower | | | | | | extremity | | + +--------+ + + + | GA SIMON VINCENT | Routin | 09/25/2018 | Complex regional [...]
--- OUTSIDE RECORDS SUMMARY | ~2020-08-23 | XMS | Encounter Summary ---
Demographics + + + | Address | [address] | | | [place] [address] | + + + | Home Phone [...] Team Providers + +------+ + | Care Mobility Scooter Repairer Name | Role | Phone | [...] 2019 | | Pain Center at | MOLD PREPARER [address] | | | | | [facility] | [place], [place] | | | | | [address] | [address] | | | | | [place] [facility] | [phone] | | | | | and Healing, | | | | | | | | | | | | Floor [place], [place] | | | | | | [address] | | | | | | [phone] | | | +--------+ + + + [...] encounter Miscellaneous Notes Telephone Encounter - Vanessa Edmondson - 01/02/2019 11:20 AM PSTDoes patient have confidential v oicemail so we can leave detailed messages?: Yes Reason for call: patient is in a lot of pain and would like to get this refill of the oxyco done prescribed and sent to her pharmacy. Please have anyone please this request according zenia Hodges. Prescription refill? Yes If yes: Name of Medication: oxycodone Preferred pharmacy?lala jaffe Please type Name of pharmacy and general location, for example "[facility]". This is required so MA and Provider know where to send the refill. documented in this encounter Plan of Treatment Not on filedocumented as of this encounter Visit Diagnoses Not on filedocumented in this encounter
--- OUTSIDE RECORDS SUMMARY | ~2020-08-23 | XMS | Encounter Summary ---
Demographics + + + | Address | [address] | | | [place] [address] | + + + | Home Phone [...] Providers + +------+ + | Care Culinary Chef Name | Role | Phone | [...] | Diagnoses | Beulah | Edu Pt Pony Trimmer | | | | Therapy | CRPS | Janak Martinez MD | [address] | | | | | (complex | [address] | | | | | regional | [address] | Mailcode: | | | | | pain | Mailstop | [facility] | | | | | syndrome), | [id number] | for Health | | | | | lower limb | [place], [place] | and Healing, | | | | | Gait | [address] | [address] | | | | | disturbance | Phone: | [place], [place] | | | | | Muscle pain | [phone] | [address] | | | | | Procedures | Fax: | Phone: | | | | | PHYSICAL | [phone] | [phone] | | | | | THERAPY | [...] | | | | [place] | [place] [address] | syndrome), lower | | | | [address] | [phone] | limb (Primary Dx) | | | | [facility] | | | | | | and Healing, | | | | | | Building [address], | | | | | | Floor [place], [place] | | | | | | [address] | | | | | | [phone] | | | +--------+---------+ + + + [...] might be different f rom the original. [id number] BRODY FARAH Date of : 1990 Start of care: 02/14/2012 Date of onset: 02/14/2012 Referring/Attending Practitioner: Janak Riojas MD . Primary/Referral Diagnosis/ICD-9: 355.71B CRPS (complex regional pain syndrome), lower limb Insurance: Payor: [facility] Plan: BCBS OUT OF STATE Product Type: PP O Service period from: 02/14/2012 to: 08/12/2012 Number visits used/authorized: 03/25 [facility] PHYSICAL THERAPY PROGRESS NOTE [...] 05/03/2012 Walk without crutches 5- 8 minutes 11/17 mile 11/17 mile unilateral rows Tiw 8lbs [...] therapy: 15min Therapeutic exercise: 45 min ASSESSMENT: renato is doing well with her upper extremity [...] in pain management strategies 4 weeks 05/03/2012 Renato will be able to walk for .5 [...] change in their status. Guillermo Sanon MSPBren [facility] Outpatient Rehabilitation Services Mailcode: Ch3p [address] [facility], [address] [place] [address] documented in this encounter Plan of Treatment Not on filedocumented as of this encounter Procedures + +--------+ + + + | Procedure Name | Priori | Date/Time | Associated Diagnosis | Comments | | | ty | | | | + +--------+ + + + | [place] MANUAL THER | Routin | 06/05/2012 | CRPS (complex | | | TECH,1+REGIONS,EA 15 | e | 5:15 PM | regional pain | | | MIN | | PDT | syndrome), lower | | | | | | limb | | + +--------+ + + + | [place] THERAPEUTIC | Routin | 06/05/2012 | CRPS [...]
--- OUTSIDE RECORDS SUMMARY | ~2020-08-23 | XMS | Encounter Summary ---
Demographics + + + | Address | [address] | | | [place] [address] | + + + | Home Phone [...] Providers + +------+ + | Care Assembly Machine Operator Name | Role | [...] | | 2017 | anned | Services [address] | | | | | | [address] | | | | | | Mailcode: [id number] | | | | | | [facility] | | | | | | [place], [place] | | | | | | [address] | | | | | | [phone] | | | +--------+ + + + [...]
--- OUTSIDE RECORDS SUMMARY | ~2020-08-23 | XMS | Encounter Summary ---
Demographics + + + | Address | [address] | | | [place] [address] | + + + | Home Phone [...] + +------+ + | Care Director Of Architecture Name | Role | Phone | + +------+ + | Justo Vazquez MD | PCP | | + +------+ + Reason for Visit + +--------+ + | Reason | Onset | Comments | | | Date | | + +--------+ + | Refill Request | 08/03/ | ketamine | | | 2017 | | + +--------+ + Encounter Details +--------+--------+ + + + | Date | Type | Department | Care Team | Description | +--------+--------+ + + + | 08/03/ | Refill | [facility] | Alex Sanchez, | Refill Request | | 2018 | | Pain Center at | ,PhD [address] | (ketamine) | | | | [facility] | [facility] | | | | | [address] | [place], [place] | | | | | [facility] | [address] | | | | | and Healing, | [phone] | | | | | | | | | | | Floor [place], [place] | | | | | | [address] | | | | | | [phone] | | | +--------+--------+ + + + [...] documented as of this encounter Miscellaneous Notes Addendum Note - Holly Ward MA - 08/08/2018 8:02 PM PDT Addended by: HOLLY WARD MA n: 08/08/2018 08:02 PM Modules accepted: Orders elephone Encounter - Holly Ward MA - 08/08/2018 8:02 PM PDT Reason for Call: Refill request Patient: Tracie Farah Contact Information: Home Phone Work Phone Message: Description of reason for call: Name of Medication requested: Requested Prescriptions Pending Prescriptions Disp Refills ketamine 100 mg/mL injection solution 5 Si to 30 sprays in each nostril every 3 hrs as needed for pain as directed by physic deya. Concentration is 150mg/mL. Compounded by [facility] ([phone]) Patient has been compliant with [facility] treatment plan: yes HOLYL WARD MA Last Encounter with [facility]: Last Appointment in [facility] was on 08/07/18 [id number] 8:02 pm with Alex Sanchez MD,P hD. Refill Request. Future Appointments: Next Appointment in [facility] is on 09/25/18 at 12:00 pm with Alex Sanchez MD ,PhD. Patient's Preferred Pharmacy: Pharmacy Preferences: [facility] [address] [place] [address] Hours: 8am-9pm Mon-fri; 9-5:30pm Sat-sun E-Prescribing: Yes E-Prescribing Control Substances: Yes [facility] [address] [place] [address] Hours: 9am-9pm Mon-fri / 9am-7pm Sat / 10am-6pm Sun E-Prescribing: Yes E-Prescribing Control Substances: Yes [facility][id number] [place] [address] Hours: 9am-7pm Mon-fri / 9am-6pm Sat / 10am-5pm Sun E-Prescribing: Yes E-Prescribing Control Substances: Yes [facility] [address] [place] [address] Hours: E-Prescribing: Yes E-Prescribing Control Substances: Yes elephone Encounter - R Huma morris - 08/04/2018 3:34 PM PDTFormatting of this note might be different from the or iginal. Reason for Call: Refill Request Patient: Tracie Farah Contact Information: Home Phone Work Phone Message: Description of reason for call: patient requesting refill of katamine 150 mg. Patient state s she needs this today, 08/04. Patient advised that in the future she should notify pharmacy for refill at least 7 days in advance- patient states she has been calling since Tuesday. Dulce dykes states she is aware her insurance won't cover this and will pay out of pocket. Last Encounter with [facility]: Last Appointment in [facility] was on 08/03/18 [id number] 3:34 pm with Alex Sanchez MD,P hD. Refill Request. Future Appointments: Next Appointment in [facility] is on 09/25/18 at 12:00 pm with Alex Sanchez MD ,PhD. Patient's Preferred Pharmacy: Pharmacy Preferences: [facility] [address] [place] [address] Hours: 8am-9pm Mon-fri; 9-5:30pm Sat-sun E-Prescribing: Yes E-Prescribing Control Substances: Yes [facility] [facility] [address] [facility] [place] [address] Hours: 9am-9pm Mon-fri / 9am-7pm Sat / 10am-6pm Sun E-Prescribing: Yes E-Prescribing Control Substances: Yes [facility] #[id number] [address] [facility] [place] [address] Hours: 9am-7pm Mon-fri / 9am-6pm Sat / 10am-5pm Sun E-Prescribing: Yes E-Prescribing Control Substances: Yes [facility] [address] [place] [address] Hours: E-Prescribing: Yes E-Prescribing Control Substances: Yes documented in this encounte r Plan of Treatment Not on filedocumented as of this encounter Visit Diagnoses Not on filedocumented in this encounter"
--- OUTSIDE RECORDS SUMMARY | ~2020-08-23 | XMS | Encounter Summary ---
Demographics + + + | Address | [address] | | | [place] [address] | + + + | Home Phone [...] Providers + +------+ + | Care Manager Labor Delivery Name | Role | Phone | + [...] | Center at [facility] [address] | | Review | | | | [address] [facility] | | | | | | for Health and | | | | | | [facility], [facility] [address] | | | | | | [place], [place] | | | | | | [address] | | | | | | [phone] | | | +--------+ + + + [...]
--- OUTSIDE RECORDS SUMMARY | ~2020-08-23 | XMS | Encounter Summary ---
Demographics + + + | Address | [address] | | | [place] [address] | + + + | Home Phone [...] Team Providers + +------+ + | Care Pens And Pencils Repairer Name | Role | Phone | + +------+ + | Allegra Gandhi | PCP | | + +------+ + Encounter Details +--------+ + + + + | Date | Type | Department | Care Team | Description | +--------+ + + + + | 02/13/ | Hospital | Nuclear Medicine | | | | 2011 | Encounter | at [facility] [address] | | | | | | [address] | | | | | | [place], | | | | | | [place], | | | | | | [place] [address] | | | | | | [phone] | | | +--------+ + + + [...]
--- OUTSIDE RECORDS SUMMARY | ~2020-08-23 | XMS | Encounter Summary ---
Demographics + + + | Address | [address] | | | [place] [address] | + + + | Home Phone [...] Providers + +------+ + | Care Carton Machine Operator Name | Role | Phone [...] [address] | | | | | | [place], [place] | | | | | | [address] | | | +--------+ + + + [...]
--- OUTSIDE RECORDS SUMMARY | ~2020-08-23 | XMS | Encounter Summary ---
Demographics + + + | Address | [address] | | | [place] [address] | + + + | Home Phone [...] Providers + +------+ + | Care Foundry Superintendant Name | Role | Phone | + [...] MD | [facility] [address] | | | | | (complex | [address] | Pavilion | | | | | regional | [address] | [address] | | | | | pain | Mailstop | Acosta Vanegas, | | | | | syndrome), | [id number] | Basement | | | | | lower limb | [place], [place] | [place], [place] | | | | | Procedures | [address] | [address] | | | | | NM BONE &/OR | Phone: | Phone: | | | | | JOINT | [phone] | [phone] | | | | | IMAGING 3 | Fax: | Fax: | | | | | PHASE | [phone] | [phone] | +--------+--------+ + + + + Consult [...] | | | regional | [place] | [address] | | | | | pain | FAMILY | Mailstop | | | | | syndrome), | MEDICINE P | [id number] | | | | | lower limb | [address] | [place], [place] | | | | | Gait | [place], | [address] | | | | | disturbance | [place] [address] | Phone: | | | | | Muscle pain | Phone: | [phone] | | | | | Procedures | [phone] | Fax: | | | | | REQUEST TO | Fax: | [phone] | | | | | SURGERY | [phone] | | | | | | ANIMAL DOCTOR | | | +--------+--------+ + + + + Consultation (Routine) +--------+--------+ + + + + | Status | Reason | Specialty | Diagnoses / | Referred By | Referred To | | | | | Procedures | Contact | Contact | +--------+--------+ + + + + | Closed | | Psychology / | Diagnoses | Beulah, | Clay Dry Press Operator Psych | | | | Pain | CRPS | Dale Martinez MD | [facility] [address] | | | | Management | (complex | [address] | | | | | regional | [address] | Center for | | | | | pain | Mailstop | Health and | | | | | syndrome), | 423015 | Healing, | | | | | lower limb | [place], [place] | Building | | | | | Gait | [address] | 1[address]15[address] Floor | | | | | disturbance | Phone: | [place], [place] | | | | | Muscle pain | [phone] | [address] | | | | | Procedures | Fax: | Phone: | | | | | CONSULT TO | [phone] | [phone] | | | | | PAIN CENTER | | Fax: | | | | | | | [phone] | +--------+--------+ + + + + Physical Therapy (Routine) +--------+--------+ + + + + | Status | Reason | Specialty | Diagnoses / | Referred By | Referred To | | | | | Procedures | Contact | Contact | +--------+--------+ + + + + | Closed | | Physical | Diagnoses | Beulah, | Edu Pt Clay Dry Press Operator | | | | Therapy | CRPS | Dale Martinez MD | [address] [address] | | | | | (complex | [address] | | | | | regional | [address] | Mailcode: | | | | | pain | Mailstop | [facility] | | | | | syndrome), | [id number] | for Health | | | | | lower limb | [place], [place] | and Healing, | | | | | Gait | [address] | [facility] 1 | | | | | disturbance | Phone: | [place], [place] | | | | | Muscle pain | [phone] | [address] | | | | | Procedures | Fax: | Phone: | | | | | PHYSICAL | [phone] | [phone] | | | | | THERAPY | [...] | | | 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 | FAMILY | Mailstop | | | | | of lower | MEDICINE P | [address] | | | | | limb | [address] | [place], [place] | | | | | | [place], | [address] | | | | | | [place] [address] | Phone: | | | | | | Phone: | [phone] | | | | | | [phone] | Fax: | | | | | | Fax: | [phone] | | | | | | [phone] | | +--------+--------+ + + + + Encounter Details +--------+---------+ + + + | Date | Type | Department | Care Team | Description | +--------+---------+ + + + | 02/13/ | Office | [facility] | Dale Cantu, | CRPS (complex | | 2011 | Visit | Pain Center at | MD [address] | regional pain | | | | [facility] | [facility] [id number] | syndrome), lower | | | | [address] | [place], [place] | limb; Gait | | | | [facility] | [address] | disturbance; Muscle | | | | and Healing, | [phone] | pain; Adjustment | | | | | | reaction | | | | Floor [place], [place] | | | | | | [address] | | | | | | [phone] | | | +--------+---------+ + + + [...] Diagnostic evaluation: Records from CRPS program at [facility]. 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 [...] the psychologists here at the [facility]. 2.2 Physical therapy can reduce pain and improve functional status. Suggest Guillermo Sanon . 3. Medication suggestions: 3.1 Continue titrating up duloxetine. 3.2 As for any patient being managed with chronic opioids, we do recommend that the patien t have a signed [place] Material Risk Notice, agree to whatever refill [...] procedure to assess the effects in detail. [facility] Pre-Procedure Instructions: The procedure you discussed with your doctor is called: LUMBAR SYMPATHETIC BLOCK. Please m sintia sure this is scheduled with the Cash Applications Associate. Please bring a lease purchase driver with you. We may give you medications that make you drowsy or otherw ise unsafe to drive. If you do not have a lease purchase driver, we will not be able to [...] PLEASE CONTACT THE COMPREHENSIVE PAIN CENTER AT [phone]) FOR QUESTIONS OR IF YOU NEED TO CANCEL YOUR APPOINTMENT. [facility] Comprehensive Pain Center documented [...] negative. Physical Exam Ortho Exam Neurologic Exam tDale monsivais MD - 0 02/13/2012 10:54 PM PDT Comprehensive [facility] Center Office Visit . 02/13/2012 Tracie Farah; ; : 1990 Ms. Farah was referred for pain management consultation by BJORN Mi [place] [facility] [address] [place] [address] Reason for visit Chief Complaint Patient presents with Pain in left leg Ankle pain left History of Present Illness: Tracie Farah is a 21 year old female with pain locate d in left lower extremity. She has been diagnosed with CRPS. She is referred to [facility] for consultation regarding this ongoing pain problem with the following spec [facility] issues to be addressed: Other options [...] by several orthopedic surgeons, Dr. Charles in [place], physical therapy, Occupational Therapy. Diagnostic and radiologic [...] relief. Admitted to the inpatient [facility] program for 1 month in the summer [...] entin, pregabalin, topiramate, tramadol, multiple opioids. Current [place] about 6-8/day. St arting duloxetine, at 30 mg/day. She feels that the most effective medication treatments ar e or have been opioids. As a result of her pain, Ms. Farah notes multiple changes in her life, including: "I don 't have a life, can't work, can't go to school." Poor mood, sleep, activity. Using crutche s recently because of pain flare. SOCIAL SERVICES COORDINATOR Brief Pain Inventory: (ten= worst possible pain [...] History Social History Narrative Single. Goes to [employer] with a light load. Has been working at [employer], can' t work on crutches. Has roommates. Current Medication List 02/14/12 9:50 [...] Anaphylaxis As part of today's visit the [facility] new patient questionnaire was [...] you expect from your visits to the [facility] ? Other (describe): ketamine, any [...] loss. The patient is nervous/anx ious. Depression: 5/10 Anxiety: 6-7/10 Sleep: poor Physical Exam Vitals reviewed. Constitutional: [...] compartment syndrome, physical therapy, mirror therapy, psychological counsjorge ricks, the pediatric inpatient pain program at [facility], and two attempted lumbar sympathetic [...] CRPS patients (Loretta Rousseau, et al. Katrina Auger Operator Med. 2010;152: 152-158). Other treatment options for the future: Spinal cord stimulation (SCS) has good evidence f or providing intermediate teacher relief in CRPS (Complex Regional Pain Syndrome) [...] Diagnostic evaluation: Records from pain program at [facility]. Suggest three ph ase bone scan-- ordered. [...] the psychologists here at the [facility]. ORDER PLACED 2.2 Physical therapy can reduce pain and improve functional status. Suggest Guillermo Sanon . ORDER PLACED 3. Medication suggestions: 3.1 Continue titrating up duloxetine. 3.2 As for any patient being managed with chronic opioids, we do recommend that the patien t have a signed [facility] Material Risk Notice, agree to [...] her PCP, BJORN Villanueva. DALE CANTU MD Professional Bass Fisher, Comprehensive Pain Center Analysis Consultant, Pain Medicine Professor, Anesthesiology & Perioperative Medicine documented in this en counter Miscellaneous Notes Scan - Other, Faculty - 02/23/2012 1:34 PM PDTElectronically signed by Faculty Other at 1:34 PM PDTdocumented in this encounter Plan of [...] | | 3 PHASE | BONE SCAN 04/02/12 | | | | | | 17:13:00 [...] Homer | | | | | | Bryson Mcdowell.Author: | | | | | | Gerry [...] | | + +---------+ + + | [facility] DEPARTMENT OF | | | [...]
--- OUTSIDE RECORDS SUMMARY | ~2020-08-23 | XMS | Encounter Summary ---
Demographics + + + | Address | [address] | | | [place] [address] | + + + | Home Phone [...] Providers + +------+ + | Care Clinical Informatics Strategist Name | Role | Phone | [...] ogy | | Ava Torres, | [address] | | | | | Constipation | [address] | [address] | | | | | , | [place] | [place] for | | | | | unspecified | [address] | Health and | | | | | constipation | [facility] [place] | Healing, | | | | | type | [address] | [address] | | | | | Procedures | | [place], [place] | | | | | CONSULT TO | | [address] | | | | | GI PROCEDURE | | Phone: | | | | | UNIT: | | [phone] | | | | | ANORECTAL | | Fax: | | | | | MANOMETRY | | [phone] | | | | | [place] ANAL | | | | | | [...] | ogy | | [place], | [address] | | | | | Gastroparesi | Allegra Nieto, | [address] | | | | | s | [place] [address] | Center for | | | | | | [address] | Health and | | | | | | [place], | Healing, | | | | | | [place] [address] | Building 2 | | | | | | Phone: | [place], [place] | | | | | | [phone] | [address] | | | | | | Fax: | Phone: | | | | | | [phone] | [phone] | | | | | | | Fax: | | | | | | | [phone] | +--------+--------+ + + + + Encounter Details +--------+---------+ + + + | Date | Type | Department | Care Team | Description | +--------+---------+ + + + | 08/10/ | Office | Digestive Health | Ava Carbajal | Constipation, | | 2015 | Visit | Center at [facility] [address] | MD Melissa | unspecified | | | | [facility] | | constipation type | | | | for Health and | | (Primary Dx) | | | | Healing, [address] | | | | | | [place], [place] | | | | | | [address] | | | | | | [phone] | | | +--------+---------+ + + + [...] in their attached note. Celia Lin MD Integrated Program Teacherhatchery helper Division of Gastroenterology & Hepatology Count Includes [facility] [place] Ava Alejo MD - 08/09/2016 8:40 PM PDT Gastroenterology Initial Clinic Note 08/09/2016 CHIEF COMPLAINT/IDENTIFICATION: "Gastroparesis"-Nausea emesis and abdominal pain -SECOND O GERMAINE Dr[facility] N[facility] PCP: HANDY Villalpando HISTORY OF [...] Patient is seen by Dr. Flores in [place] [facility] at [facility]. Patient has hx of GERD which [...] had CT abdomen w contrast done at [facility] on 10/23/15 showing large stool [...] GI MDS: Dr. Nyla [facility] LABS: -increased CRP 06/19/16: Lipase-normal [...] form versus functional syndrome. Would also con internal grinder tender GERD as a cause for her nausea [...] therapy. If negative ARM would refer for sitz mar ker study to eval for colonic inertia. [...]
--- OUTSIDE RECORDS SUMMARY | ~2020-08-23 | XMS | Encounter Summary ---
Demographics + + + | Address | [address] | | | [place] [address] | + + + | Home Phone [...] Team Providers + +------+ + | Care Apartment Rental Clerk Name | Role | Phone | + +------+ + | Justo Vazquez MD | PCP | | + +------+ + Reason for Visit + +--------+ + | Reason | Onset | Comments | | | Date | | + +--------+ + | Refill Request | 02/05/ | | | | 2020 | | + +--------+ + Encounter Details +--------+--------+ + + + | Date | Type | Department | Care Team | Description | +--------+--------+ + + + | 12/26/ | Refill | [facility] | Sdrulla, Alex D, | Refill Request | | 2019 | | Pain Center at | ,PhD [address] | | | | | [facility] | [address] | | | | | [address] | [place], [place] | | | | | [facility] | [address] | | | | | and Healing, | [phone] | | | | | | | | | | | Floor [place], [place] | | | | | | [address] | | | | | | [phone] | | | +--------+--------+ + + + [...] Telephone Encounter - Olive Morgan MA - 12/29/2018 10:09 AM PSTFormatting of this note skyla pal be different from the original. Reason for Call: Refill request Patient: Tracie Farah Contact Information: Home Phone Work Phone Message: Description of reason for call: Name of Medication requested: Requested Prescriptions Pending Prescriptions Disp Refills oxyCODONE (immediate release) 10 mg oral tablet 10 tablet 0 Sig: Take 1 tablet by mouth every eight hours as needed for severe pain. Refused Prescriptions Disp Refills oxyCODONE (immediate release) 10 mg oral tablet 10 tablet 0 Sig: Take 1 tablet by mouth every eight hours as needed for severe pain. Refused By: ALEX SANCHEZ MD Reason for Refusal: Refill not appropriate Patient has been compliant with [facility] treatment plan: yes Olive Morgan MA Last Encounter with [facility]: Last Appointment in [facility] was on 12/28/18 at 3:41 pm with TERESA Banuelos. Future Appointments: No future appointments scheduled in Pain Management. Patient's Preferred Pharmacy: Pharmacy Preferences: [facility] [address] [place] [address] Hours: 8am-9pm Mon-fri; 9-5:30pm Sat-sun E-Prescribing: Yes E-Prescribing Control Substances: Yes [facility] [place] [address] Hours: 9am-9pm Mon-fri / 9am-7pm Sat / 10am-6pm Sun E-Prescribing: Yes E-Prescribing Control Substances: Yes [facility] #[id number] [place] [address] Hours: 9am-7pm Mon-fri / 9am-6pm Sat / 10am-5pm Sun E-Prescribing: Yes E-Prescribing Control Substances: Yes [facility] [address] [place] [address] Hours: E-Prescribing: Yes E-Prescribing Control Substances: Yes [facility] [address] [facility] [address] [place] [address] Hours: 8am-6pm Mon-fri E-Prescribing: Yes E-Prescribing Control Substances: Yes [facility] [address] [address] [place] [address] Hours: M-sat 9am/7pm,sun 11am/3pm E-Prescribing: Yes E-Prescribing Control Substances: Yes [facility] [address] [place] [address] Hours: E-Prescribing: Yes E-Prescribing Control Substances: Yes [facility] #[id number] [address] [place] [place] [address] Hours: 9am-9pm Mon-fri / 9am-7pm Sat / 10am-6pm Sun E-Prescribing: Yes E-Prescribing Control Substances: Yes elephone Encounter - Smita Johnston MA - 12/27/2018 10:18 AM PST Reason for Call: Refill request Patient: Tracie Farah Contact Information: Home Phone Work Phone Message: Description of reason for call: Name of Medication requested: Requested Prescriptions Pending Prescriptions Disp Refills oxyCODONE (immediate release) 10 mg oral tablet 10 tablet 0 Sig: Take 1 tablet by mouth every eight hours as needed for severe pain. Patient has been compliant with [facility] treatment plan: yes - Office Visit with Rossy Childs on 12/22/2018 Smita Baca MA Last Encounter with [facility]: Last Appointment in [facility] was on 12/26/18 at 3:41 pm with Alex Sanchez MD,PhD. Future Appointments: No future appointments scheduled in Pain Management. Patient's Preferred Pharmacy: Pharmacy Preferences: [facility] [address] [place] [address] Hours: 8am-9pm Mon-fri; 9-5:30pm Sat-sun E-Prescribing: Yes E-Prescribing Control Substances: Yes [facility] [place] [address] Hours: 9am-9pm Mon-fri / 9am-7pm Sat / 10am-6pm Sun E-Prescribing: Yes E-Prescribing Control Substances: Yes [facility] #[id number] [address] Hours: 9am-7pm Mon-fri / 9am-6pm Sat / 10am-5pm Sun E-Prescribing: Yes E-Prescribing Control Substances: Yes [facility] [address] [place] [address] Hours: E-Prescribing: Yes E-Prescribing Control Substances: Yes [facility] [address] [facility] Room [address] [place] [address] Hours: 8am-6pm Mon-fri E-Prescribing: Yes E-Prescribing Control Substances: Yes [facility] [address] [address] [place] [address] Hours: M-sat 9am/7pm,sun 11am/3pm E-Prescribing: Yes E-Prescribing Control Substances: Yes [facility] [address] [address] Hours: E-Prescribing: Yes E-Prescribing Control Substances: Yes [facility] #[id number] [address] [place] [address] Hours: 9am-9pm Mon-fri / 9am-7pm Sat / 10am-6pm Sun E-Prescribing: Yes E-Prescribing Control Substances: Yes elephone [place] - Vanessa Edmondson - 12/26/2018 10:47 AM PSTDoes patient have confidential voicemail so we can sofy ve detailed messages?: Yes Reason for call: patient called because rossy prescribed her at her 14 day f/u of [place] oxyco done and patient states she would like to request a refill from Dr. Sanchez since rossy onl y gave her a weekend worth Prescription refill? Yes If yes: Name of Medication: Oxycodone 10 mg take every 8 hours Preferred pharmacy? [facility] in [place] Please type Name of pharmacy and general location, for example "[facility]". This is required so MA and Provider know where to send the refill. Recent Procedure: Yes Concern from recent procedure? scs still in pain documented in this encounter Plan of Treatment Not on filedocumented as of this encounter Visit Diagnoses + + | Diagnosis | + + | Complex regional pain syndrome type 1 of left lower extremity | + + | S/P insertion of spinal cord stimulator | + + documented in this encounter
--- OUTSIDE RECORDS SUMMARY | ~2020-08-23 | XMS | Encounter Summary ---
Demographics + + + | Address | [address] | | | [place] [address] | + + + | Home Phone [...] Providers + +------+ + | Care Power Supply Engineer Name | Role | Phone | + +------+ + | Justo Vazquez MD | PCP | | + +------+ + Reason for Visit + +--------+ + | Reason | Onset | Comments | | | Date | | + +--------+ + | Care Coordination | 06/07/ | | | | 2016 | | + +--------+ + Encounter Details +--------+ + + + + | Date | Type | Department | Care Team | Description | +--------+ + + + + | 06/07/ | Telephone | [facility] | St Mak [place]ene, | Care Coordination | | 2017 | | Pain Center at | CHILDCARE CENTER DIRECTOR [address] | | | | | [facility] | [facility] [place] | | | | | [address] | [address] | | | | | [facility] | [phone] | | | | | and Healing, | | | | | | Building | | | | | | Floor [place], [place] | | | | | | [address] | | | | | | [phone] | | | +--------+ + + + [...] this encounter Miscellaneous Notes Telephone Encounter - Yun Frey NP - 06/07/2017 3:28 PM PDTReturned patient's call. D id not reach her. Advise patient to seek urgent/emergent care if her abdominal pain were to persist. elephone Encoun Charline Devries MA - 06/07/2017 2:27 PM PDTReviewed chart. Routing to provider to determine if we have recommendations or if pt should contact PCP. elephone Encounter - Huma Villatoro - 7 1:58 PM PDT Reason for Call: No chief complaint on file. Patient: Tracie Farah Contact Information: Home Phone Work Phone Message: Description of reason for call: Patient called to check in with Ilene. Patient is experien cing an extremely painful flare-up of abdominal pain. Patient spoke with Dr. Kenny Gaspar's off ice and was recommended to check in us to see if we could prescribe something for the patien t or make a recommendation. Patient states that she is a lot of pain and is puking up bile. Please advise. Last Encounter with [facility]: Last Appointment in [facility] was on 04/25/17 [id number] 1:58 pm with TERESA Banuelos. Future Appointments: Next Appointment in [facility] is on 07/04/17 at 10:20 am with TERESA Banuelos. Patient's Preferred Pharmacy: Pharmacy Preferences: [facility] [address] [place] [address] Hours: 8am-9pm Mon-fri; 9-5:30pm Sat-sun E-Prescribing: Yes E-Prescribing Control Substances: Yes [facility] [place] [address] Hours: 9am-9pm Mon-fri / 9am-7pm Sat / 10am-6pm Sun E-Prescribing: Yes E-Prescribing Control Substances: Yes [id number] [address] [place] [address] Hours: 9am-7pm Mon-fri / 9am-6pm Sat / 10am-5pm Sun E-Prescribing: Yes E-Prescribing Control Substances: Yes documented in this encounte r Plan of Treatment Not on filedocumented as of this encounter Visit Diagnoses Not on filedocumented in this encounter"
--- OUTSIDE RECORDS SUMMARY | ~2020-08-23 | XMS | Encounter Summary ---
Demographics + + + | Address | [address] | | | [place] [address] | + + + | Home Phone [...] Providers + +------+ + | Care Cement Mason Helper Name | Role | Phone | + +------+ + | Justo Vazquez MD | PCP | | + +------+ + Reason for Visit + +--------+ + | Reason | Onset | Comments | | | Date | | + +--------+ + | Medication Refill | 03/29/ | ketamine | | Request | 2018 | | + +--------+ + Encounter Details +--------+ + + + + | Date | Type | Department | Care Team | Description | +--------+ + + + + | 03/29/ | Telephone | [facility] | Alex Sanchez, | Medication Refill | | 2018 | | Pain Center at | ,PhD [address] | Request (ketamine) | | | | [place] | [address] | | | | | [address] | [place], [place] | | | | | [facility] | [address] | | | | | and Healing, | [phone] | | | | | [facility] | | | | | | Floor [place], [place] | | | | | | [address] | | | | | | [phone] | | | +--------+ + + + [...] encounter Miscellaneous Notes Telephone Encounter - Holly Ward MA - 03/29/2018 5:29 PM PDT03/29/2018 @ 1720, I spoke with Dr. Sanchez. He stated he had already contacted her pharmacy in [place] on the last r efill and authorized 5 refills. I called the patient and let her know that she should have r efills. She will call her pharmacy. [facility] RMAElectronically signed by Holly Ward MA at 03/29 5:30 PM PDTTelephone Encounter - Holly Ward MA - 03/29/2018 4:59 PM PDTFormattin g of this note might be different from the original. Reason for Call: Refill request Patient: Tracie Farah Contact Information: Home Phone Work Phone Message: Description of reason for call: Name of Medication requested: Requested Prescriptions Pending Prescriptions Disp Refills COMPOUNDED MED RX CONTROLLED (SEE ADMIN INSTRUCT FOR INGREDIENTS) 1 each 0 Sig: Ketamine 150 mg/ml nasal spray. 30 sprays intranasally every 3 hours. Patient has been compliant with [facility] treatment plan: yes HOLLY WARD MA Last Encounter with [facility]: Last Appointment in [facility] was on 02/21/18 [id number] 4:59 pm with Alex Sanchez MD,P hD. Medication Refill Request (ketamine- mail script to patient). Future Appointments: Next Appointment in [facility] is on 04/19/18 at 12:45 pm with Alex Sanchez MD,PhD. Patient's Preferred Pharmacy: Pharmacy Preferences: [facility] [address] [place] [address] Hours: 8am-9pm Mon-fri; 9-5:30pm Sat-sun E-Prescribing: Yes E-Prescribing Control Substances: Yes [facility] [facility] [address] [facility] [place] [address] Hours: 9am-9pm Mon-fri / 9am-7pm Sat / 10am-6pm Sun E-Prescribing: Yes E-Prescribing Control Substances: Yes [facility] #[id number] [place] [address] [place] [address] Hours: 9am-7pm Mon-fri / 9am-6pm Sat / 10am-5pm Sun E-Prescribing: Yes E-Prescribing Control Substances: Yes [facility] [address] [place] [address] Hours: E-Prescribing: Yes E-Prescribing Control Substances: Yes elephone Encounter - K onVandana - 03/29/2018 11:07 AM PDTFormatting of this note might be different from the belen niyanal. Reason for Call: No chief complaint on file. Patient: Tracie Farah Contact Information: Home Phone Work Phone Message: Description of reason for call: Patient called and would like refill on Ketamine be sent to [facility], fax #[phone], tele #[phone]. Thank you. Last Encounter with [facility]: Last Appointment in [facility] was on 02/21/18 [id number] 11:07 am with Alex Sanchez MD,P hD. Medication Refill Request (ketamine- mail script to patient). Future Appointments: Next Appointment in [facility] is on 04/19/18 at 12:45 pm with Alex Sanchez MD,PhD. Patient's Preferred Pharmacy: Pharmacy Preferences: [facility] [address] [place] [address] Hours: 8am-9pm Mon-fri; 9-5:30pm Sat-sun E-Prescribing: Yes E-Prescribing Control Substances: Yes [facility] [facility] [place] [address] Hours: 9am-9pm Mon-fri / 9am-7pm Sat / 10am-6pm Sun E-Prescribing: Yes E-Prescribing Control Substances: Yes [facility] #[id number] [address] [facility] [place] [address] Hours: 9am-7pm Mon-fri / 9am-6pm Sat / 10am-5pm Sun E-Prescribing: Yes E-Prescribing Control Substances: Yes documented in this encounter Plan of Treatment Not on filedocumented as of this encounter Visit Diagnoses Not on filedocumented in this encounter"
--- OUTSIDE RECORDS SUMMARY | ~2020-08-23 | XMS | Encounter Summary ---
Demographics + + + | Address | [address] | | | [place] [address] | + + + | Home Phone [...] Team Providers + +------+ + | Care Twisting Department End Finder Name | Role | Phone | + +------+ + | Justo Vazquez MD | PCP | | + +------+ + Reason for Visit + +--------+ + | Reason | Onset | Comments | | | Date | | + +--------+ + | Constipation | 08/20/ | | | | 2015 | | + +--------+ + Encounter Details +--------+ + + + + | Date | Type | Department | Care Team | Description | +--------+ + + + + | 08/20/ | Telephone | [facility] | Ava Carbajal | Constipation | | 2016 | | Center at [facility] [address] | MD Melissa | | | | | [address] [facility] | | | | | | for Health and | | | | | | Healing, [facility] [address] | | | | | | [place], [place] | | | | | | [address] | | | | | | [phone] | | | +--------+ + + + [...] Notes Telephone Encounter - Obdulio Thompson - 01/19/2019 9:54 AM PSTThis encounter has been admin istratively closed with the authorization of the [facility] Committee. elephone Encounter - Tala Doss RN - 09/07/2016 1:41 PM PDTSpoke with Tracie to review prep for upcoming Anor ectal manometry on 09/14/16. Tracie states she is having regular, daily bowel movements and t aking 1-2 doses of Miralax per day. Her nausea and vomiting have resolved at this time, thou gh she says it can sometimes be cyclical. Electronically signed by Tala Burns RN at 1 1:42 PM PDTTelephone Encounter - Isdaora Eller MA - 08/23/2016 11:50 AM PDTI ca lled pt again. Same outcome. From: Ava Carbajal MD Sent: 08/20/2016 10:08 PM To: Isadora Eller MA Thanks I messaged her to in order get some info from her about bowel prep but never heard b ack from her. elephone Encounter - Isadora Eller MA - 08/20/2016 4:10 PM PDTI called Tracie back-- unable to leave a VM for p t. Active Mychart user- msg sent here as well as routing high priority to Dr. Carbajal to foll ow up over the weekend. elephone Encounter - Dorita Barros - 08/20/2016 1:59 PM PDTPatient called wanting to leave a message for Parth Carbajal. Patient stated she has been continuing the regimen that she had discussed with Dr. Carbajal. Patient stated she has been taking miralax and suppositories following the bowel cleanse. Patient stated it has not really been helping. Patient stated she has not had a bowel movement for about 3 days. Patient requests call back from medical staff for next steps and suggestions. Please follow up. Nachocu mented in this encounter Plan of Treatment Not on filedocumented as of this encounter Visit Diagnoses Not on filedocumented in this encounter"
--- OUTSIDE RECORDS SUMMARY | ~2020-08-23 | XMS | Encounter Summary ---
Demographics + + + | Address | [address] | | | [place] [address] | + + + | Home Phone [...] | | | sympathetic | [place] [address]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 | FAMILY | [address] | | | | | of lower | MEDICINE P | [id number] | | | | | limb | [address] | [place], [place] | | | | | | [place], | [address] | | | | | | [place] [address] | Phone: | | | | | | Phone: | [phone] | | | | | | [phone] | Fax: | | | | | | Fax: | [phone] | | | | | | [phone] | | +--------+--------+ + + + + Encounter Details +--------+---------+ + + + | Date | Type | Department | Care Team | Description | +--------+---------+ + + + | 03/17/ | Office | [facility] | Dale Cantu, | CRPS (complex | | 2011 | Visit | Pain Center at | [address] | regional pain | | | | [place] | [id number] | syndrome), lower | | | | [address] | [place], [place] | limb; Adjustment | | | | [facility] | [address] | reaction; Muscle | | | | and Healing, | [phone] | pain; Gait | | | | [facility] | | disturbance | | | | Floor [place], [place] | | | | | | [address] | | | | | | [phone] | | | +--------+---------+ + + + [...] Pain: After Your Visit", log into your Ocelus nt at [email or web address]. You can enter G828 in the TASS" search box. Not on [employer]? Review the [employer] section of your After Visit Summary for directions on ho w to sign up. [phone] [employer]. Care instructions adapted under license by [facility]. This care instruction is for use with your licensed healthcar e professional. If you have questions about a medical condition or this instruction, always ask your healthcare professional. [employer] disclaims any warranty or liabili ty for your use of this information. Content Version: 9.2.085425; Last Revised: April 29, 2011 Nortriptyline for [...] Pain: After Your Visit", log into your Intelligroupou nt at [email or web address]. You can enter G828 in the TASS" search box. Not on [employer]? Review the SIM Digitalt section of your After Visit Summary for directions on liz rea to sign up. [phone] [employer]. Care instructions adapted under license by [facility]. This care instruction is for use with your licensed healthcar e professional. If you have questions about a medical condition or this instruction, always ask your healthcare professional. [employer] disclaims any warranty or liabili ty for your use of this information. Content Version: 9.2.998783; Last Revised: April 29, 2011 documented in [...] documented in our notes. DALE CANTU MD Marble Worker, [facility] Access Specialist, Pain Medicine Professor, Anesthesiology & Perioperative Medicine ollerMarquis MD - 03/17/2012 3:42 PM PDT [facility] Comprehensive Pain Center Return [...] her pain. She continues to take 6-8 Crowell per day and 600 mg of ibuprofen every 4 hours. She had her first consultation with Goldie Feldmna, and she is using the techniques she [...] and a pain drawing which I reviewed. [facility] Brief Pain Inventory: (ten= worst possible pain or complete interference) Right Now: 7 (03/17/121553) Least in 24 hours: 8 (03/17/121553) Worst in 24 hours: 9 (03/17/121553) Average: 8 (03/17/121553) % Relief (med/treat): 10 (03/17/121553) General Activity: 10 (03/17/121553) Mood: 6 (03/17/121553) Walking Ability: 10 (03/17/121553) Normal Work: 10 (03/17/121553) Relations with Others: 5 (03/17/121553) Enjoyment of Life: 8 (03/17/12 155) Sexual Activity: 0 (03/17/12 155) Sleep: 7 (03/17/121553) She reports no other change in past [...] The Review of Systems obtained by the [facility] was reviewed. Additional Review of Systems: [...] with the strategies she is learning fr gene Feldman to help her cope with the [...] you require any medication refills today? no [employer] ROS: 1. Bones, Joints, and Muscles: cramps , joint pain, muscle pain, stiffness and swelling 2. Gastrointestinal System: nausea 3. Genitourinary System: negative If yes, plan: 4. Urinary Incontinence Present: no 5. Nervous System: numbness and weakness 6. Psychiatric History: decreased energy, concentration and anxiety documented in this e ncounter Miscellaneous Notes Bhupendra - Anders Morales - 03/23/2012 10:42 AM PDTElectronically signed by Anders Morales at 10:42 AM PDTdocumented in this encounter Plan of [...]
--- OUTSIDE RECORDS SUMMARY | ~2020-08-23 | XMS | Encounter Summary ---
Demographics + + + | Address | [address] | | | [place] [address] | + + + | Home Phone [...] Providers + +------+ + | Care Manager Land Name | Role | Phone | + +------+ + | Justo Vazquez MD | PCP | | + +------+ + Reason for Visit + +--------+ + | Reason | Onset | Comments | | | Date | | + +--------+ + | Phone communication | 09/30/ | | | | 2016 | | + +--------+ + Encounter Details +--------+ + + + + | Date | Type | Department | Care Team | Description | +--------+ + + + + | 09/30/ | Telephone | [facility] | St [facility] [place], | Phone communication | | 2017 | | Pain Center at | CAFETERIA SERVER [address] | | | | | [facility] | [facility] [place] | | | | | [address] | [address] | | | | | [facility] | [phone] | | | | | and [facility], | | | | | | [facility] | | | | | | Floor [place], [place] | | | | | | [address] | | | | | | [phone] | | | +--------+ + + + [...] this encounter Miscellaneous Notes Telephone Encounter - Tres Watkins - 09/30/2017 4:35 PM PSTPt called and left a CJ manzano uesting a call back from Ilene. States she is having a really bad flare up. Please advise elephone Encounter - Ilene Bright FNP - 09/30/2017 2:45 PM PSTAttempted to reach Patricia, no answer, left ghada Childs DNP, CAFETERIA SERVER-C [facility] [address] [place] [address] elephone Encounter - Ilene Bright FNP - 09/30/2017 2:44 PM PSTReturned called. No answer, left a message. Will try her mother, Patricia, now. [place] Childs DNP, CAFETERIA SERVER-C [facility] [address] [place] [address] elephone Encounter - Charline Salinas MA - 09/30/2017 12:19 PM PSTRouting to provider. elephone Encounter - Paulina Alcala - 017 10:28 AM PST Reason for Call: No chief complaint on file. Patient: Tracie Farah Contact Information: Home Phone Work Phone Message: Description of reason for call: Patient is calling because she is in so much pain and nause ated and would like a call back on a care plan patients mother states that she haven't eaten in the three days and they are in the waiting room to see PCP. Please call back to advise Last Encounter with [facility]: Last Appointment in [facility] was on 09/27/17 [id number] 10:28 am with TERESA Banuelos. Future Appointments: Next Appointment in [facility] is on 10/11/17 at 10:20 am with Jamel Madden, PhD. Patient's Preferred Pharmacy: Pharmacy Preferences: [facility] [address] [place] [address] [address] [place] [address] Hours: 8am-9pm Mon-fri; 9-5:30pm Sat-sun E-Prescribing: Yes E-Prescribing Control Substances: Yes [facility] [facility] [address] [facility] [place] [address] Hours: 9am-9pm Mon-fri / 9am-7pm Sat / 10am-6pm Sun E-Prescribing: Yes E-Prescribing Control Substances: Yes [id number] [place] [address] Hours: 9am-7pm Mon-fri / 9am-6pm Sat / 10am-5pm Sun E-Prescribing: Yes E-Prescribing Control Substances: Yes documented in this encounter Plan of Treatment Not on filedocumented as of this encounter Visit Diagnoses Not on filedocumented in this encounter"
--- OUTSIDE RECORDS SUMMARY | ~2020-08-23 | XMS | Encounter Summary ---
Demographics + + + | Address | [address] | | | [place] [address] | + + + | Home Phone [...] Providers + +------+ + | Care Diesel Service Apprentice Name | Role | Phone | [...] | | Complex | Alex Alba, | [facility] [address] | | | | | regional | ,PhD [address] | Pavilion | | | | | pain | [address] | | | | | syndrome | [address] | [address], | | | | | type 1 of | Rd | Basement | | | | | left lower | [place], [place] | [place], [place] | | | | | extremity | [address] | [address] | | | | | Muscle pain | Phone: | Phone: | | | | | Procedures | [phone] | [phone] | | | | | NM BONE | Fax: | Fax: | | | | | &/OR JOINT | [phone] | [phone] | | | | | IMAGING | [...] | | 2018 | Encounter | at [facility] [address] | ,PhD [address] [facility] | | | | | [address] | [address] | | | | | [address], | [place], [place] | | | | | [facility], | [address] | | | | | [place] [address] | [phone] | | | | | [phone] | | | +--------+ + + + [...] Note | + + | Service Account, [employer] Res In Interface - 12/28/2017 11:43 AM [...] | | + +---------+ + + | [facility] | | | [...]
--- OUTSIDE RECORDS SUMMARY | ~2020-08-23 | XMS | Encounter Summary ---
Demographics + + + | Address | [address] | | | [place] [address] | + + + | Home Phone [...] Providers + +------+ + | Care Motor Scooter Mechanic Name | Role | Phone | [...] | | | [facility] | [place], [place] | | | | | [place], [place] | [address] | | | | | [address] | | | | | | [phone] | | | +--------+ + + + [...] this encounter Miscellaneous Notes Telephone Encounter - Maru Davison RN - 01/31/2017 3:30 PM [id number] PIV [facility] ed RAC. documented i n this encounter Plan of Treatment Not on filedocumented as of this encounter Visit Diagnoses Not on filedocumented in this encounter"
--- OUTSIDE RECORDS SUMMARY | ~2020-08-23 | XMS | Encounter Summary ---
Demographics + + + | Address | [address] | | | [place] [address] | + + + | Home Phone [...] Providers + +------+ + | Care Precision Optics Technician Name | Role | Phone | + +------+ + | Justo Vazquez MD | PCP | | + +------+ + Reason for Visit + +--------+ + | Reason | Onset | Comments | | | Date | | + +--------+ + | Medication | 02/01/ | clarify sig | | | 2017 | | + +--------+ + Encounter Details +--------+ + + + + | Date | Type | Department | Care Team | Description | +--------+ + + + + | 02/01/ | Telephone | [facility] | Alex Sanchez, | Medication (clarify | | 2018 | | Pain Center at | ,PhD [address] | sig) | | | | [facility] | [address] | | | | | [address] | [place], [place] | | | | | [facility] | [address] | | | | | and Martina, | [phone] | | | | | Building | | | | | | Floor [place], [place] | | | | | | [address] | | | | | | [phone] | | | +--------+ + + + [...] Telephone Encounter - Holly Edouard MA - 02/03/2018 1:37 PM PDTFormatting of this note mi ght be different from the original. Alex Sanchez MD,PhD Holly Edouard MA Caller: Unspecified (2 days ago, 1:43 PM) Spoke to pharmacy and okay'ed it. elephone Encounter - Holly Sepulveda MA - 02/01/2018 2:[address] Sanchez, third message regarding clarifying the sig eleph one Encounter - Vanessa Le - 02/01/2018 1:43 PM PDTFormatting of this note might be dif ferent from the original. Reason for Call: No chief complaint on file. Patient: Tracie Farah Contact Information: Home Phone Work Phone Message: Description of reason for call: Dequan @ [facility] in [place] @ 12:30 pm. They received mailed Rx for patient's ketamine Rx. She wants to confirm the dosage and the quanti ty being ordered. The original Rx was 30 sprays every 3 hours, and 720 mL ordered (about 1 months supply). On the Rx they received someone has handwritten that the patient does 15-30 sprays every 3 yang rs, and 250 mL ordered (less than 2 weeks supply). She would like someone to call back and confirm the Rx. Their phone number is [phone]. Please advise. Last Encounter with [facility]: Last Appointment in [facility] was on 01/13/18 [id number] 1:43 pm with Alex Sanchez MD,P hD. Follow-up Plan (ortho question). Future Appointments: No future appointments scheduled in Pain Management. Patient's Preferred Pharmacy: Pharmacy Preferences: [facility] [address] [place] [address] Hours: 8am-9pm Mon-fri; 9-5:30pm Sat-sun E-Prescribing: Yes E-Prescribing Control Substances: Yes [facility] [place] [address] Hours: 9am-9pm Mon-fri / 9am-7pm Sat / 10am-6pm Sun E-Prescribing: Yes E-Prescribing Control Substances: Yes [id number] [address] [place] [address] Hours: 9am-7pm Mon-fri / 9am-6pm Sat / 10am-5pm Sun E-Prescribing: Yes E-Prescribing Control Substances: Yes documented in this encount er Plan of Treatment Not on filedocumented as of this encounter Visit Diagnoses Not on filedocumented in this encounter"
--- OUTSIDE RECORDS SUMMARY | ~2020-08-23 | XMS | Encounter Summary ---
Demographics + + + | Address | [address] | | | [place] [address] | + + + | Home Phone [...] Team Providers + +------+ + | Care Toolmaker Grade Three Name | Role | Phone | + +------+ + | Justo Vazquez MD | PCP | | + +------+ + Encounter Details +--------+------+ + + + | Date | Type | Department | Care Team | Description | +--------+------+ + + + | 12/14/ | Lab | Laboratory at [facility] | | Complex regional | | 2018 | | [address] | | pain syndrome type 1 | | | | Center for [facility] | | of left lower | | | | and Healing, | | extremity; Muscle | | | | Building [address] | | pain | | | | [place], [place] | | | | | | [address] | | | | | | [phone] | | | +--------+------+ + + + [...] | Negative | [facility] | | | BERYN, URINE | | | LABORATORY | | [...] KEVIN SHAH | [address] | [place] [address] | | | SERVICES, LILLIAN | GUILLERMO [...]
--- OUTSIDE RECORDS SUMMARY | ~2020-08-23 | XMS | Encounter Summary ---
Demographics + + + | Address | [address] | | | [place] [address] | + + + | Home Phone [...] Providers + +------+ + | Care Yarn Examiner Name | Role | Phone | [...] | | | 2019 | Event | [facility] | MD Juan [address] | | | | | and Healing Surgery | [address] | | | | | Center Admitting | [place], [place] | | | | | Desk Located on the | [address] | | | | | 4th floor [address] | [phone] | | | | | [address] [place], | | | | | | [place] [address] | Arben Valerio MD | | | | | | [address] | | | | | | [address] | | | | | | [place], [place] | | | | | | [address] | | | | | | [phone] | | | | | | | [...] + + documented as of this encounter OR Notes Anesthesia Postprocedure Evaluation - Brie Carrasco CRNA - 12/05/2018 10:45 AM PSTFormatt ing of this note might be different from the original. [facility] [id number] Allergies Allergen Reactions Morphine Anaphylaxis Haldol [Haloperidol] Myalgia Tracie states muscle spasm and "feeling like crawling out of skin." Past Surgical History Procedure Laterality Date Tonsillectomy and adenoidectomy Ankle surgery x 9 Fasciotomy Neurectomy foot Nerve block 03/18/11 & 03/25/11 Left lumbar sympathetic ganglion block Hemroidectomy Trial spinal cord stimulator leads 08/02/2012 [facility], Surgeon: Janak Riojas MD Cholecystectomy Appendectomy Other l ankle, port Temp: 36.9 C (98.4 F) Heart Rate: 82 Resp: 12 BP: 109/51 SpO2: 100 % Evaluation Patient personally seen and evaluated for recovery from anesthesia care, ROS including Card s, Resp, Neuro, and GI w/o evidence of adverse effects, VS (BP, HR, RR, SpO2, and Temp) and hydration status are stable no PONV Pain controlled No Altered mental status Complications nesthesia Preproced ure Evaluation - Brie Carrasco CRNA - 12/05/2018 7:17 AM PST Tracie Donaldson [facility] [id number] Allergies Allergen Reactions Morphine Anaphylaxis Haldol [Haloperidol] Myalgia Tracie states muscle spasm and "feeling like crawling out of skin." NPO:NPO Status: last night Last Vitals: Temp: 36.7 C (98.1 F) Heart Rate: 78 Resp: 15 BP: 105/50 SpO2: 100 % Preg Status/LMP: Patient Active Problem List Diagnosis CRPS (complex regional pain syndrome), lower limb Gait disturbance Muscle pain Adjustment reaction Pain in joint, lower leg Disturbance in sleep behavior Pain of upper abdomen 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 Irritable bowel syndrome with constipation Intractable cyclical vomiting with nausea Abdominal pain Abdominal scar neuroma Past Surgical History Procedure Laterality Date Tonsillectomy and adenoidectomy Ankle surgery x 9 Fasciotomy Neurectomy foot Nerve block 03/18/11 & 03/25/11 Left lumbar sympathetic ganglion block Hemroidectomy Trial spinal cord stimulator leads 08/02/2012 [facility], Surgeon: Janak Riojas MD Cholecystectomy Appendectomy Other l ankle, port Current Medication List Name Sig Last Dose BACLOFEN 10 MG TABLET Take 0.5 tablets by mouth two times daily. Take at the onset of abdom inal spasm for two days. Indications: muscle spasm Within last 30 days COMPOUNDED MED RX CONTROLLED (SEE ADMIN INSTRUCT FOR INGREDIENTS) Ketamine 150 mg/ml nasal spray. 30 sprays intranasally every 3 hours. Within last 7 days CYCLOBENZAPRINE 5 MG TABLET Take 5 mg by mouth three times daily as needed. Do not use long er than 2-3 weeks. Within last 30 days HYDROCODONE 10 MG-ACETAMINOPHEN 325 MG TABLET Take 1-2 tablets by mouth every six hours as needed. 12/04/2018 HYDROXYZINE HCL 50 MG TABLET Take 1 tablet by mouth two times daily. Not Taking KETOROLAC IM Inject into the muscle (IM). Not Taking LEVONORGESTREL 20 MCG/24 HR (5 YEARS) INTRAUTERINE DEVICE 1 Each by Intrauterine route once . May be removed and replaced with a new unit at anytime during menstrual cycle; do not leav e any one system in place for > 5 years. 12/05/2018 ONDANSETRON 4 MG DISINTEGRATING TABLET Dissolve 1 tablet in mouth every twelve hours as nee ded. Not Taking PANTOPRAZOLE 40 MG TABLET,DELAYED RELEASE Take 40 mg by mouth once daily. 12/04/2018 PEG 3350-ELECTROLYTES 236 GRAM-22.74 GRAM-6.74 GRAM-5.86 GRAM SOLUTION Take as directed by [facility]- 2 gallon bowel prep Not Taking POLYETHYLENE GLYCOL 3350 17 GRAM/DOSE ORAL POWDER Take 17 g by mouth once daily. Within las t 7 days PROMETHAZINE 12.5 MG TABLET Take 25 mg by mouth four times daily as needed for nausea/vomit ing. .5 tabs daily Within last 7 days SUCRALFATE 1 GRAM TABLET Take 1 g by mouth four times daily. Not Taking Lab Results Component Value Date RATE 71 03/18/2017 ATRIALRATE 75 03/18/2017 VA 140 03/18/2017 QRS 78 03/18/2017 QT 368 03/18/2017 PAXIS 54 03/18/2017 RAXIS -6 03/18/2017 TAXIS 57 03/18/2017 Preoperative Adult Anesthesia Plan Last edited 11/27/18 1522 by Catie Smart NP ROS: HPI: Prior Anesthetic Problems: Yes see comments Pulmonary: no shortness of breath no cough no stridor no wheezing no Recent Respiratory Infection Pt. Has no asthma no COPD No dx of sleep apnea No risk factors for sleep apnea: Cardiovascular: ~4 METS; limited by left LE pain Denies any chest pain or pressure, sob, mathur, orthopnea, pnd, peripheral edema, palpitations or dizziness/syncope. Functional Capacity: Moderate no chest pain no CHF no hypertension no CAD Sx no valvular problems/murmurs no arrhythmia no Cardiac assist devices no pacemaker/ICD GI/Hepatic: +cyclic vomiting d/t GERD - sleeps with 3-4 pillows Controlled since 07/2018 no GI Bleed GERD Control: well controlled no liver disease no hepatitis Renal: no renal failure no electrolyte abnormalities no dialysis Urology/Bowling Teacher: Interstitial cystitis LMP: irreg bleeding, ~11/14/2018, IUD in place Endo: no Diabetes: no Endocrine Other no Hx Corticosteroid Use Neuro/Psych: +CRPS - left LE No Spine Conditions No Neuromuscular Conditions no Psych Disorder pain (left LE - ketamine nasal spray; hydrocodone-APAP 10-325, takes 1/2 tab 1-2x in last few weeks (reserving ketamine for after surgery)) Current pain score: 7 Musculoskeletal: no arthritis No Muscular Disorders Heme/Onc: Pt. has: no active bleeding no bleeding disorder No clotting disorders No hemoglobin disorders no malignancy Infectious Disease: no MRSA no VRE Skin: no open wounds no skin conditions AutoImmune Disorders: No autoimmune disorders Physical Exam General: Appearance: Healthy, Age appropriate, No distress and Smiling LOC: Alert HEENT: Normocephalic/Atraumatic, Normal sclerae/conjunctivae, PERRL, EOMI and No thyromegaly Airway: Dentition: dentition is normal Mallampati: 2 Mouth Opening: > 3 cm TM Distance:> 6 cm C-Spine ROM: Normal Neck Anatomy: Normal Neck Circumference: <40 cm. Jaw Protrusion: Normal (lower incisors go above upper incisors) Pulmonary: Respiratory: pulmonary exam normal Breath Sounds: breath sounds normal Cardiovascular: Rhythm: Regular Rate: Normal Cardiovascular comments: No M/G/R; no pedal edema Abdomen: General: Normal Body Habitus: normal Musculoskeletal: Range of Motion: Normal range of motion Musculoskeletal Comments: No obvious deformities noted. Neuro/Psych: Affect: Normal Cognitive Status: Normal Speech: Normal speech Strength: Normal Muscle Tone: Normal Movement: Abnormal Gait Station: Abnormal Skin: Color: skin color normal Texture: Normal Turgor: turgor normal Temperature: Warm Additional Comments: Anesthesia FYI: 1) pt reports issues with conscious sedation in the past. Feels like she requires more sedation that typical, and it was a difficult experience having the SCS trial because she woke up multiple times and was in pain and there was concern about her getting more sedation 2) pt has port in right upper chest. Using peripheral IV sets off her CRPS and would prefer using port if possible. 7222 Anesthesia Plan Comments ASA ASA 2 NPO Status NPO Status: NPO by protocol Monitors/Lines to be used Standard Anesthetic Consideration Induction Anesthetic Technique Monitored Anesthesia Care; Obstetric Anesthesia Post-Op Pain Plan IV analgesics and Orals; Blood Products Informed Consent PARQ discussed with: patient, Procedures, Alternatives, Risks, and Questions discussed and Risk/benefit of anesthesia plan and blood product discussed Dental Risk discussed with patient Code status in OR Patients Code Status in OR: FULL 12/05 7:17 AM Associated attestation - Ilir Valdes MD - 12/05/2018 7:33 AM PSTPt seen and exami isabel; agree with documentation and plandocumented in this encounter Miscellaneous Notes PMC/ANE PreOp Note - Catie Smart NP - 11/27/2018 2:32 PM PSTROS: HPI: Prior Anesthetic Problems: Yes see comments Pulmonary: [...] renal failure no electrolyte abnormalities no dialysis Urology/Bowling Teacher: Interstitial cystitis LMP: irreg bleeding, ~11/14/2018, IUD [...] skin conditions AutoImmune Disorders: No autoimmune disorders Physical Exam General: Appearance: Healthy, Age appropriate, [...] and would prefer using port if possible. documented in this encounter Plan of Treatment [...] | | | | | CONTINUOUS, Starting e 12/05/18 | anesthes | AM PST | [...] | mcg/kg/m | | | | Starting Tue12/05/18 at 0758, | | AM PST | in | | | | Until Tue12/05/18 at [...]
--- OUTSIDE RECORDS SUMMARY | ~2020-08-23 | XMS | Encounter Summary ---
Demographics + + + | Address | [address] | | | [place] [address] | + + + | Home Phone [...] Providers + +------+ + | Care Print Finishing Worker Name | Role | Phone | + +------+ + | Allegra Gandhi | PCP | | + +------+ + Reason for Visit + +--------+ + | Reason | Onset | Comments | | | Date | | + +--------+ + | Evaluation AND/OR | 02/28/ | | | management - new | 2011 | | | patient | | | + +--------+ + Consultation (Routine) +--------+--------+ + + + + | Status | Reason | Specialty | Diagnoses / | Referred By | Referred To | | | | | Procedures | Contact | Contact | +--------+--------+ + + + + | Closed | | Psychology / | Diagnoses | Beualh, | Delivery Supervisor Psych | | | | Pain | CRPS | Janak Martinez MD | [facility] [address] | | | | Management | (complex | [address] | | | | | regional | [address] | Center for | | | | | pain | [facility] | Health and | | | | | syndrome), | [id number] | Healing, | | | | | lower limb | [place], [place] | Building | | | | | Gait | [address] | [address] Floor | | | | | disturbance | Phone: | [place], [place] | | | | | Muscle pain | [phone] | [address] | | | | | Procedures | Fax: | Phone: | | | | | CONSULT TO | [phone] | [phone] | | | | | PAIN CENTER | | Fax: | | | | | | | [phone] | +--------+--------+ + + + + Encounter Details +--------+---------+ + + + | Date | Type | Department | Care Team | Description | +--------+---------+ + + + | 04/17/ | Office | Pain Center at [facility] | Shelia Feldman, PhD | Unspecified | | 2011 | Visit | [address] | | adjustment reaction | | | | Center for [facility] | | (Primary Dx); Sleep | | | | and Healing, | | disturbance, | | | | Building | | unspecified | | | | Floor [place], [place] | | | | | | [address] | | | | | | [phone] | | | +--------+---------+ + + + [...] Feldman, PhD - 02/29/2012 4:49 PM PDT [facility] Pain Center Name: Tracie Farah MR#: [id number] Date of : 1990 Date: February [birth year], [...] & Psychiatric History: Tracie Farah lives in [place] in a shared apartment space. She has struggled wi th CRPS for at least 5 years; original injury to her foot was in 2001. In summer 2010 she h ad inpt pain tx at [facility] with limited prison benefit. Recent flare; [...] some pain management techniques at [facility], mainly DB and PMR, which she [...] Travel is a barrier; she lives in [place] DSM-IV Diagnoses/Impressions: Union I: 1. 309.9 Unspecified Adjustment Reaction 2. 780.50 Sleep Disturbance Union II: Deferred. Union III: Patient Active Problem List Diagnoses CRPS (complex regional pain syndrome), lower limb Gait disturbance Muscle pain Adjustment reaction Union IV: CRPS pain, pain related debility;difficulty attending class, working; family stres s; stalker ex-bf Union V: Global Assessment of Functioning = 75 [...] me should questions arise. SHELIA FELDMAN, PHD Molding Line Operator Licensed Clinical Psychologist [facility] [place] Department of Anesthesiology & Perioperative Medicine [facility] [address] [place] [address] documented in this enc ounter Plan of Treatment Not on filedocumented as of this encounter Visit Diagnoses + + | Diagnosis | + + | Unspecified adjustment reaction - Primary | + + | Sleep disturbance, unspecified | + + documented in this encounter
--- OUTSIDE RECORDS SUMMARY | ~2020-08-23 | XMS | Encounter Summary ---
Demographics + + + | Address | [address] | | | [place] [address] | + + + | Home Phone [...] Team Providers + +------+ + | Care Opera Singer Name | Role | Phone | + +------+ + | Justo Vazquez MD | PCP | | + +------+ + Encounter Details +--------+ + + + + | Date | Type | Department | Care Team | Description | +--------+ + + + + | 12/15/ | Documentati | Digestive Health | Bruna Quinones, | | | 2017 | on | Center at [facility] [address] | [address] | | | | | [address] [place] | [facility] [place] | | | | | for Health and | [address] | | | | | Healing, Building [address] | [phone] | | | | | [place], [place] | | | | | | [address] | | | | | | [phone] | | | +--------+ + + + [...] this encounter Miscellaneous Notes Telephone Encounter - Raven Newby - 12/15/2016 9:45 AM PSTFollow up phone call to larry ent regarding GI procedure from 12/14/2016. Patient states the following: "I'm doing fine." Informed the patient that their referring provider will receive a copy of the procedure results within the next week. Patient advised to review all discharge information. The GI procedure report/s of 12/14/2016 - have been routed via [employer] to Dr. Ava Carbajal. Raven Ext [id number] documented in this encoun ter Plan of Treatment Not on filedocumented as of this encounter Visit Diagnoses Not on filedocumented in this encounter
--- OUTSIDE RECORDS SUMMARY | ~2020-08-23 | XMS | Encounter Summary ---
Demographics + + + | Address | [address] | | | [place] [address] | + + + | Home Phone [...] Team Providers + +------+ + | Care English Division Chair Name | Role | Phone | [...] Pain Medicine | Diagnoses | Chasity, | Seasoner [facility] | | | | / Pain | Abdominal | MD Kenny | [address] | | | | Management | pain, | [address] | [facility] | | | | | unspecified | [facility] | for Health | | | | | location | Rd | and Healing, | | | | | Procedures | [place], [place] | Building | | | | | CONSULT TO | [address] | [address] Floor | | | | | PAIN | | [place], [place] | | | | | MANAGEMENT | | [address] | | | | | | | Phone: | | | | | | | [phone] | | | | | | | Fax: | | | | | | | [phone] | +--------+--------+ + + + + Reason for Visit + +--------+ + | Reason | Onset | Comments | | | Date | | + +--------+ + | Lab Order | 03/07/ | | | | 2016 | | + +--------+ + | Abdominal pain | 03/07/ | | | | 2016 | | + +--------+ + Encounter Details +--------+ + + + + | Date | Type | Department | Care Team | Description | +--------+ + + + + | 03/07/ | Telephone | Digestive Health | Kenny Gaspar MD | Lab Order; Abdominal | | 2017 | | Center at [facility] [address] | | pain | | | | [address] [place] | | | | | | for Health and | | | | | | Healing, [address] | | | | | | [place], [place] | | | | | | [address] | | | | | | [phone] | | | +--------+ + + + [...] Telephone Encounter - Kenny Gaspar Md - 03/16/2017 3:39 PM PDTAlso, her porphyria, heavy met al, 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 She will filler picker the prescriptions from the pharmacy this evening and start them. If they are not effective, she will call and let us know. At that time, we will consider ad mission. Provided her with the number for the pain management clinic: [phone] Called prescriptions into the pharmacy Per Dr. Gaspar - try oral toradol and ativan. If this is not helpful for her pain, we will nejorge aldrich to consider admission. He also requested we give Tracie the number for pain management. We discussed the logistics of admitting into [facility]. Will try oral medications first. Electro nically signed by Tala Corrales RN at 03/16/2017 3:47 PM PDTTelephone Encounter - Kenny Gaspar Md - 03/16/2017 3:15 PM PDTHaving another one of her flares - severe abdominal pain, na usea, vomiting which has been going on for 8 days. She says this is identical to her past e pisodes, which have lasted up to 3 weeks before Has gone to ER 3 times, getting toradol with relief. Still having regular bowel movements daily. For long-term mgmt, have placed referral to pain management here Tala - will try short course of toradol and ativan, which have worked for her in the p ast before. If this does not work, and her pain is so debilitating, she may need to be admi tted. elephone Encounter - Tala Cortés RN - 03/16/2017 3:[address] Gaspar - he is going to call Tracie Farah directly. elephone Encounter - Tala Corrales RN - 03/16/2017 2:54 PM PDTI spoke with Tracie Farah on the phone to discuss her symptoms. She was crying on the phone due to severe abdominal pain that has been occurring for 8 days . She has gone to the ED 3 times in [place] and they "are just getting mad at me and tellin g me to call the doctor" The ED has given her IM toradol and that has helped marginally but she is asking for some s ort of help to get this pain controlled because she is miserable. She feels like she needs to be admitted because of this pain. Denies fever Pain is located in the upper, middle abdomen and radiates to her chest/back; it is constant . It is keeping her awake at night They are concerned about giving her narcotic due to constipation and that causing more pain in the long run, but she said that she needs something to help with this pain She has taking tramadol in the past for a different issue, but has not ever tried it for he r abdominal pain. Plan - page Dr. Gaspar for advise, see if there is an oral medication we could try for pain tavon allen. If not, see if admission would be possible. Noa Gaspar elephone Encounter - Dorita Barros - 03/16/2017 2:45 PM PDTPatient called initially asking to see if lab results had been entered from [facility]. Let patient know we had received results and I would get a message to medical staff so they could give her a call with the results. Patient began stating she is still experiencing her "stomach flair up" and that she is in e xcruciating pain. This is her 8th day of her flair up and she is getting no help. She stated she has gone to the local ED several times but they just give her pain medication and push her out the door. She feels like are being extremely rude and telling her they cannot do any thing for her. Tracie began to cry stating that no one is helping her and she doesn't know wh at to do. Asked patient to rate her pain, she stated she is at 8-9 pain level. Inés REESE, sarkis MA: karli RN. Inés RN, Noa RN, call connected. elephone Encounter - Tala Burns RN - 03/14/2017 1:19 PM PDTLab results scanned into the chart 03/11/17. Routed to provider for review. elephone Encounter - Tala Burns RN - 03/07/2017 3:02 PM PDTSpoke with Emilia mendoza and confirmed these are the urine and blood labs we have ordered. Tracie says we had pre vious faxed the labs, but they were "" in their system. Labs faxed to number provided below, fax confirmation received. Encouraged Tracie to call us with any issues that come up. Reminder set to check for labs later this week. elephone Encounter - Ly West - 03/07/2017 2:54 PM PDTPatient calling stating that she is having a flare up an d is at [facility] to have labs draw but needing order to be faxed. FAX: [phone] Inés RN, call connected. 2:5 5 PM PDTdocumented in this encounter Plan of Treatment Not on filedocumented as of this encounter Visit Diagnoses + + | Diagnosis | + + | Abdominal pain, unspecified location - Primary | + + documented in this encounter
--- OUTSIDE RECORDS SUMMARY | ~2020-08-23 | XMS | Encounter Summary ---
Demographics + + + | Address | [address] | | | [place] [address] | + + + | Home Phone [...] Team Providers + +------+ + | Care Bird Keeper Name | Role | Phone | [...] 2019 | | Pain Center at | EXECUTIVE BUSINESS COACH [address] | | | | | [facility] | [place], [place] | | | | | [address] | [address] | | | | | [place] for [facility] | [phone] | | | | | and Healing, | | | | | | | | | | | | Floor [place], [place] | | | | | | [address] | | | | | | [phone] | | | +--------+ + + + [...] this encounter Miscellaneous Notes Telephone Encounter - Kedar Nicholson - 12/28/2018 2:42 PM PSTPh[facility] [facility], their servers were down all day yesterday and they did not receive the prescri ption for Oxycodone 10mg and would like for you to please resend to them. Electronically si gned by Kedar Nicholson at 12/28/2018 2:58 PM PSTdocumented in this encounter Plan of Treatment Not on filedocumented as of this encounter Visit Diagnoses Not on filedocumented in this encounter"
--- OUTSIDE RECORDS SUMMARY | ~2020-08-23 | XMS | Clinical Summary ---
Demographics + + + | Address | [address] | | | [place] [address] | + + + | Home Phone [...] | Author | [facility] | + + + | Organization | [facility] | + + + | Address | Unknown | + + + | Phone | Unavailable | + + + Support + + +---------+ + | Name | Relationship | Address | Phone | + + +---------+ + | Patricia Colin | ECON | Unknown | | + + +---------+ + Care Team Providers + +------+ + | Care Housing Grant Analyst Name | Role | Phone | + +------+ + | Justo Vazquez MD | PCP | | + +------+ + Source Comments KEVIN is fully live on both [facility] Ambulatory and [facility] InPatient.[facility] Allergies + + + + [...] Noted Date | + + + | [facility] CLINICAL PROTOCOL PATIENT (PETER) - Implanted Spinal Cord | 12/14/2018 | | Stimulator | | + + + + + | Overview: Patient has an implanted Soneter spinal | | cord stimulator. Model#: [id number]. Contact [phone] for | | technical assistance.Contraindications:Sources of strong [...] | | Done | | + + + + + | Pneumococcal | | | | | vaccination (1 of 1 | 8 | | | | - PPSV23) | | | | + + + + + | Influenza (Flu) | | 10/02/20 | | | vaccination (#1) | 0 | 08, | | | | | 09/21/20 | | | | | 05 | | + + + + + [...] | Right: | BARD | | | [id number] | | Port-10/05/2016Implanted: | | Chest | | | | 0 / | | 10/05/2016 by Obdulio Simpson, | | | | | | /VIKY | | (Quantity not on file) | | | | | | 204 | + +------+--------+ +--------+--------+--------+ + + | Description:Not Power | | Injectable, Progress record | | faxed from [facility] | | Hospital in [place], [place], | | [facility] RN | + + + +---+---+ +---+--------+--------+ | Slimtip DrgImplanted: Qty: 1 | | | ST JESSICA | | 01/06/ | [id number] | | on 12/05/2018 by Daniel, | | | MEDICAL SC | | 2020 | 0-50A | | Alex Alba MD,PhD at [facility] | | | | | | /[id number] | | INPATIENT REV LOC | | | | | | 371 / | + +---+---+ +---+--------+--------+ + + | Description:Level 4 | + + + +---+---+ +---+---+--------+ | Slimtip DrgImplanted: Qty: 1 | | | ST JESSICA | | | [id number] | | on 12/05/2018 by Daniel, | | | MEDICAL SC | | | 0-50A | | Alex Alba MD,PhD at [facility] | | | | | | /[address] | | INPATIENT REV LOC | | [...] / | | Alex Alba MD,PhD at [facility] | | | | [...] + +--------+ | MEDICARE | MEDICA | [id number] | 07/15/20 | [phone] | [address] | Medica | | | RE A & | | 15-Pre | | [phone] | re | | | B | | sent | | [place] | | | | | | | | [address] | | + +--------+ +--------+ + +--------+ | MACHINE FEED OPERATOR MEDICAID | MACHINE FEED OPERATOR | [id number] | 11/14/19 | | | Medica | [...] | [address] | | Anika | al/Brain | | 1990 | [phone] | [place] [address] | | | evita | | | [...]
--- OUTSIDE RECORDS SUMMARY | ~2020-08-23 | XMS | Encounter Summary ---
Demographics + + + | Address | [address] | | | [place] [address] | + + + | Home Phone [...] Providers + +------+ + | Care It Systems Engineer Name | Role | Phone | + +------+ + | Justo Vazquez MD | PCP | | + +------+ + Reason for Visit +--------+--------+ + | Reason | Onset | Comments | | | Date | | +--------+--------+ + | Pain | 03/11/ | | | | 2019 | | +--------+--------+ + Encounter Details +--------+ + + + + | Date | Type | Department | Care Team | Description | +--------+ + + + + | 03/11/ | Documentati | [facility] | Zeeshan Mahoney MD | Pain | | 2019 | on | Pain Center at | [address] | | | | | [facility] | [address], | | | | | [address] | [place] [address] | | | | | [facility] | [phone] | | | | | and Healing, | | | | | | Building 1[address]15 | | | | | | Floor [place], [place] | | | | | | [address] | | | | | | [phone] | | | +--------+ + + + [...]
--- OUTSIDE RECORDS SUMMARY | ~2020-08-23 | XMS | Encounter Summary ---
Demographics + + + | Address | [address] | | | [place] [address] | + + + | Home Phone [...] Team Providers + +------+ + | Care Stationary Plant Operators Name | Role | Phone | + +------+ + | Justo Vazquez MD | PCP | | + +------+ + Encounter Details +--------+ + + + + | Date | Type | Department | Care Team | Description | +--------+ + + + + | 05/14/ | Telephone | [facility] | Alex Sanchez, | | | 2019 | | Pain Center at | ,PhD [address] | | | | | [facility] | [address] | | | | | [address] | [place], [place] | | | | | [place] [facility] | [address] | | | | | and Healing, | [phone] | | | | | | | | | | | Floor [place], [place] | | | | | | [address] | | | | | | [phone] | | | +--------+ + + + [...] Telephone Encounter - Estefany March MA - 06/04/2019 10:31 AM PDTLetter mailed to home olgare ss on file. elephone Enco unter - Estefany March MA - 05/30/2019 2:[address] Sanchez to see if writing a l dariela is appropriate. ele phone Encounter - Estefany March MA - 05/16/2019 7:[address] Sanchez returns will ask if he can write a letter if appropriate.Electronically signed by Estefany March MA at 019 7:56 PM PDTTelephone Encounter - Paulina Alcala - 05/14/2019 9:35 AM PDTPatient is due f or disability review. Patient states that she got a call today from them to say that she has to have these documents in so she can still keep her disability. Patient is wondering and " understands that this is very short notice" to see if "Dr. Sanchez can have him write a let ter to note that because of her CRPS she has symptoms like vomiting an stomack pain and Kym use she has been hospitalized more than 100 times." Informed patient I will relay message to provider. Please review and advise NAdocu mented in this encounter Plan of Treatment Not on filedocumented as of this encounter Visit Diagnoses Not on filedocumented in this encounter
--- OUTSIDE RECORDS SUMMARY | ~2020-08-23 | XMS | Encounter Summary ---
Demographics + + + | Address | [address] | | | [place] [address] | + + + | Home Phone [...] Providers + +------+ + | Care Livestock Yard Attendant Name | Role | Phone | + +------+ + | Justo Vazquez MD | PCP | | + +------+ + Encounter Details +--------+ + + + + | Date | Type | Department | Care Team | Description | +--------+ + + + + | 12/28/ | Exterminator Helper Termite | [facility] Comprehensive | Alex Sanchez, | Arthralgia of lower | | 2018 | | Pain Center at | ,PhD [address] | leg, unspecified | | | | [facility] | [address] | laterality (Primary | | | | [address] | [place], [place] | Dx) | | | | Center for Health | [address] | | | | | and Healing, | [phone] | | | | | | | | | | | Floor [place], [place] | | | | | | [address] | | | | | | [phone] | | | +--------+ + + + [...]
--- OUTSIDE RECORDS SUMMARY | ~2020-08-23 | XMS | Encounter Summary ---
Demographics + + + | Address | [address] | | | [place] [address] | + + + | Home Phone [...] Team Providers + +------+ + | Care Wireless Sales Representative Name | Role | Phone [...] Rd | | | | | | [place], [place] | | | | | | [address] | | | +--------+ + + + [...]
--- OUTSIDE RECORDS SUMMARY | ~2020-08-23 | XMS | Encounter Summary ---
Demographics + + + | Address | [address] | | | [place] [address] | + + + | Home Phone [...] Team Providers + +------+ + | Care Stained Glass Installer Name | Role | Phone | [...] | pain, | [address] | [address] | | | | | unspecified | [address] | | | | | abdominal | Rd | [place], [place] | | | | | location | [facility] [place] | [address] | | | | | Pain of | [address] | Phone: | | | | | upper | | [phone] | | | | | abdomen | | Fax: | | | | | Complex | | [phone] | | | | | regional | [...] | | | | | | | ACUTE DIALYSIS NURSE | | | +--------+---------+ + + + + Reason for Visit + +--------+ + | Reason | Onset | Comments | | | Date | | + +--------+ + | Procedure | 08/30/ | | | | 2016 | | + +--------+ + Encounter Details +--------+ + + + + | Date | Type | Department | Care Team | Description | +--------+ + + + + | 08/30/ | Telephone | [facility] Comprehensive | Ilene Bright, | Procedure | | 2017 | | Pain Center at | CARTON AND CAN SUPPLY SUPERVISOR [address] | | | | | [facility] | [facility] [place] | | | | | [address] | [address] | | | | | [facility] | [phone] | | | | | and [address]ina, | | | | | | Building | | | | | | Floor [place], [place] | | | | | | [address] | | | | | | [phone] | | | +--------+ + + + [...]
--- OUTSIDE RECORDS SUMMARY | ~2020-08-23 | XMS | Encounter Summary ---
Demographics + + + | Address | [address] | | | [place] [address] | + + + | Home Phone [...] Team Providers + +------+ + | Care Hemp Fiber Taker Off Name | Role | Phone | + [...] Medical Records | | 2017 | | [place] at [facility] [address] | MD Melissa | Review | | | | [address] [facility] | | | | | | for Health and | | | | | | [facility] 2 | | | | | | [place], [place] | | | | | | [address] | | | | | | [phone] | | | +--------+ + + + [...]
--- OUTSIDE RECORDS SUMMARY | ~2020-08-23 | XMS | Encounter Summary ---
Demographics + + + | Address | [address] | | | [place] [address] | + + + | Home Phone [...] Providers + +------+ + | Care Life Science Teacher Name | Role | Phone | [...] | | | | | unspecified | [facility] | [address] | | | | | location | Rd | [facility] | | | | | Procedures | [place], [place] | Rd [place], | | | | | CONSULT TO | [address] | [place] | | | | | PAIN | | [address] | | | | | MANAGEMENT | | Phone: | | | | | | | [phone] | | | | | | | Fax: | | | | | | | [phone] | +--------+--------+ + + + + Encounter [...] | | | | [place] | [facility] [address] | of left lower | | | | [address] | [place], [place] | extremity (Primary | | | | Center for Health | [address] | Dx); Pain of upper | | | | and Healing, | [phone] | abdomen; Intractable | | | | | | cyclical vomiting | | | | Floor [place], [place] | | with nausea; | | | | [address] | | Disturbance in sleep | | | | [phone] | | behavior; Abdominal | | | [...] concentration and fea r of physical activity lex Sanchez MD,P hD - 05/08/2018 10:30 AM PDT [facility] Return Visit Date: 05/08/2018 Chief Complaint Patient presents with Ankle pain Left Foot pain Left History of Present Illness: Tracie Farah is a 27 year old female, whose last appoi ntment at the [facility] was April 19, 2018, for a clinic [...] time that 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 MANAGER OF TRANSPORTATION Brief Pain Inventory: (ten= worst possible pain [...] Hemroidectomy Trial spinal cord stimulator leads 08/02/2012 [facility], Surgeon: Janak Riojas MD Cholecystectomy Appendectomy [...] History Social History Narrative Single. Goes to [employer] with a light load. Has been working at [employer], can' t work on [employer]. Has roommates. Allergies Allergen Reactions Morphine Anaphylaxis [...] by physician. Concentration is 150mg/mL. Compounded by [facility] ) KETOROLAC IM Inject into the [...] and summary of old medical records (source: [employer]), as summarized in the body of the [...] by Sonia Key. Alex Sanchez MD PhD [facility] documented in this encounter Plan [...]
--- OUTSIDE RECORDS SUMMARY | ~2020-08-23 | XMS | Encounter Summary ---
Demographics + + + | Address | [address] | | | [place] [address] | + + + | Home Phone [...] Team Providers + +------+ + | Care Battery Container Tester Aluminum Name | Role | Phone | + [...] | | Pain | Complex | Ilene, CHAINSTITCH FELLED SEAM OPERATOR | Hanna M, | | | | Management | regional | [address] | PSY D [address] | | | | | pain | Ave | [address] | | | | | syndrome | [place], [place] | [place], [place] | | | | | type 1 of | [address] | [address] Phone: | | | | | left lower | Phone: | [phone] | | | | | extremity | [phone] | Fax: | | | | | Intractable | Fax: | [phone] | | | | | cyclical | [phone] | | | | | | vomiting [...] | | | | | | ME | | | | | | | PSYCHIATRIC | | | | | | | DIAGNOSTIC | | | | | | | EVAL, NO MED | | | | | | | SVCS ME | | | | | | | PSYCH TSTNG | | | | | | | PSYCH/PHYS | | | | | | | ME | | | | | | [...] Pain Medicine | Diagnoses | Chasity, | Surgical Corsetier Chh1 | | | | / Pain | Abdominal | MD Kenny | [address] | | | | Management | pain, | [address] [facility] | [facility] | | | | | unspecified | [facility] | for Health | | | | | location | Rd | and Healing, | | | | | Procedures | [place], [place] | [facility] | | | | | CONSULT TO | [address] | 1,15th Floor | | | | | PAIN | | [facility] [place] | | | | | MANAGEMENT | | [address] | | | | | | | Phone: | | | | | | | [phone] | | | | | | | Fax: | | | | | | | [phone] | +--------+--------+ + + + + Encounter Details +--------+---------+ + + + | Date | Type | Department | Care Team | Description | +--------+---------+ + + + | 04/25/ | Office | [facility] | Ilene Bright, | Abdominal pain, | | 2017 | Visit | Pain Center at | CHAINSTITCH FELLED SEAM OPERATOR [address] | unspecified location | | | | [facility] | [place], [place] | (Primary Dx); | | | | [address] | [address] | Complex regional | | | | [place] [facility] | [phone] | pain syndrome type 1 | | | | and Healing, | | of left lower | | | | Building 1,15 | | extremity; | | | | Floor [place], [place] | | Intractable cyclical | | | | [address] | | vomiting with | | | | [phone] | | nausea; | | | | [...] this encounter Patient Instructions Patient Instructions Ilene Bright FNP - 04/25/2017 1:35 PM PDTKelly, Nice to [...] The Fibro Manual, by Freddie Guadalupe MD [email or web address] Ilene Childs DNP, FNP-[facility] [address] [place] [address] documented in this encounter Progress Notes Ilene Bright FNP - 04/25/2017 1:35 PM PDTFormatting of this note might be different fr om the original. Date: 04/25/2017 was referred for pain management consultation by Kenny Gaspar MD [address] [place] [phone] Reason for consult: abdominal pain Chief Complaint Patient presents with Abdominal pain Back pain History of Present Illness: Tracie Farah is a 26 year old female with a history of depression, complex regional pain syndrome (left lower extremity) for this she follows with a neurologist at [facility] in [facility]. She has been stable on her [...] Anxiety, non restorative sleep, insomnia, IBS-C Dr. [facility]astro[facility] 01/11/17: Tracie Farah is a 26 [...] (works better) Just started her on Celebrex (parts counterman option) Intranasal ketamine Lamotrigine Memantine Ibuprofen Cymbalta 20 mg BID Cyclobenzaprine Her nonmedication treatment has not included acupuncture, etc due to limited income. She feels that the most effective treatments include: medication (toradol). lives in [place], [place] alone and with her children. She receives disability. does not have specific goals for today's appointment. [facility] QUESTIONNAIRE BRIEF PAIN 04/24/2017 Please rate [...] pain has interfered with your sleep : [facility] New Patient Questionnaire Responses 04/24/2017 What [...] or to get rid of a hangover (eye-rfp writer)? No Do you drink alcohol to decrease [...] Hemroidectomy Trial spinal cord stimulator leads 08/02/2012 [facility], Surgeon: Janak Riojas MD Cholecystectomy [...] History Social History Narrative Single. Goes to [employer] with a light load. Has been working at [employer], can' t work on [employer]. Has roommates. Allergies Allergen Reactions Morphine Anaphylaxis [...] by physician. Concentration is 150mg/mL. Compounded by [facility] ) LAMOTRIGINE 200 MG TABLET Take [...] ENTEROGRAPHY ABDOMEN AND PELVIS WWO CONTRAST Order: [id number] Performed: 01/31/2017 4:34 PM Status: Final result [...] 3:50 PM X-RAY ABDOMEN 1 VIEW Order: [id number] Performed: 03/19/2017 6:52 AM Status: Final result [...] and summary of old medical records (source: [employer]), as summarized in the body of the [...] possible opioid-sparing effects (Stevie Torres. et al.C [employer], (8):1655-70, 2007) and evidence that it can [...] The Fibro Manual, by Freddie Guadalupe MD [email or web address] Central sensitization Ilene Childs DNP, FNP-[facility] [address] [place] [address] Display Progress Note in MyChart: No documented [...]
--- OUTSIDE RECORDS SUMMARY | ~2020-08-23 | XMS | Encounter Summary ---
Demographics + + + | Address | [address] | | | [place] [address] | + + + | Home Phone [...] Providers + +------+ + | Care Sr. Payroll Processor Name | Role | Phone | [...] Rd | | | | | | [place], [place] | | | | | | [address] | | | +--------+ + + + [...]
--- OUTSIDE RECORDS SUMMARY | ~2020-08-23 | XMS | Encounter Summary ---
Demographics + + + | Address | [address] | | | [place] [address] | + + + | Home Phone [...] Team Providers + +------+ + | Care Skip Loader Name | Role | Phone | + +------+ + | Justo Vazquez MD | PCP | | + +------+ + Reason for Visit + +--------+ + | Reason | Onset | Comments | | | Date | | + +--------+ + | Education procedure | 09/14/ | preprocedure education [facility] | | | 2017 | | + +--------+ + Encounter Details +--------+ + + + + | Date | Type | Department | Care Team | Description | +--------+ + + + + | 09/14/ | Telephone | [facility] | Alex Sanchez, | Education procedure | | 2018 | | Pain Center at | ,PhD [address] | (preprocedure | | | | [facility] | [facility] [address] | education [facility]) | | | | [address] | [place], [place] | | | | | [facility] | [address] | | | | | and [address]ina, | [phone] | | | | | | | | | | | Floor [place], [place] | | | | | | [address] | | | | | | [phone] | | | +--------+ + + + [...] this encounter Miscellaneous Notes Telephone Encounter - Samia Freitas RN - 09/14/2018 12:26 PM PDTPatient called and reminded of appointment check in time - 1200. Reminded to remain NPO after midnight, and to bring a d river for after the procedure. Patient verbalized understanding of the above recommendations . Discussed if patient is on any anti-coagulation/antibiotics medications - denied. Patient states she has a port, the RNs here are unable to access ports, [facility] and [facility] could come down here on that day to access for [place] [phone] upon pt arrival. Patient states that she is having a procedure with her OBGYN Dr Boyle next . She chowdhury s a lot of anxiety about it and spoke with Dr Sanchez at her last appointment about getting valium and pain pills for a one time dose prior to that procedure. According to patient Dr Sanchez understood patient's feelings/needs but is unable to prescribe for this occasion, peter patel was instructed to check with PCP who denied her request as did Dr Boyle, who is performing the procedure. I instructed patient that doctors do not prescribe medications for a procedu re they are not involved with. She is still requesting that Dr Sanchez reach out to Dr Boyle in [place] to explain her case. She states that Dr Boyle does not prescribe because it is a [facility]. I explained that [facility] do allow these types of prescript ions, she would like Dr Sanchez to reach out to Dr Boyle about her condition and see if she c ould get these medications. Patient denied further needs at this time. Phone number given for any further questions or concerns. documented in this encoun ter Plan of Treatment Not on filedocumented as of this encounter Visit Diagnoses Not on filedocumented in this encounter"
--- OUTSIDE RECORDS SUMMARY | ~2020-08-23 | XMS | Encounter Summary ---
Demographics + + + | Address | [address] | | | [place] [address] | + + + | Home Phone [...] Providers + +------+ + | Care Senior Java Web Developer Name | Role | Phone | + +------+ + | Justo Vazquez MD | PCP | | + +------+ + Encounter Details +--------+ + + + + | Date | Type | Department | Care Team | Description | +--------+ + + + + | 12/05/ | Pharmacy | [facility] | | | | 2019 | Visit | [facility] | | | | | | [address] | | | | | | Mailcode: [place] | | | | | | [facility] and | | | | | | Healing, Building [address] | | | | | | [place], [place] | | | | | | [address] | | | | | | [phone] | | | +--------+ + + + [...]
--- OUTSIDE RECORDS SUMMARY | ~2020-08-23 | XMS | Encounter Summary ---
Demographics + + + | Address | [address] | | | [place] [address] | + + + | Home Phone [...] Team Providers + +------+ + | Care Management Technician Name | Role | Phone [...] | 2018 | Encounter | Lab at [facility] [address] | ,PhD [address] [facility] | | | | | [facility] for | [facility] | | | | | Health and [facility], | [place], [place] | | | | | [place] [address] [facility] | [address] | | | | | Floor [place], [place] | [phone] | | | | | [address] | | | | | | [phone] | | | +--------+ + + + [...]
--- OUTSIDE RECORDS SUMMARY | ~2020-08-23 | XMS | Encounter Summary ---
Demographics + + + | Address | [address] | | | [place] [address] | + + + | Home Phone [...] Providers + +------+ + | Care Automation Technologist Name | Role | Phone | [...] [facility] | | | | | [facility] | [facility] [id number] | | | | | [address] | [place], [place] | | | | | Center for Health | [address] | | | | | and [place], | [phone] | | | | | | | | | | | Floor [place], [place] | | | | | | [address] | | | | | | [phone] | | | +--------+ + + + [...]
--- OUTSIDE RECORDS SUMMARY | ~2020-08-23 | XMS | Encounter Summary ---
Demographics + + + | Address | [address] | | | [place] [address] | + + + | Home Phone [...] Team Providers + +------+ + | Care Ekg Tech Name | Role | Phone | [...] | 2015 | Encounter | Center at [facility] [address] | MD Melissa | | | | | [address] [facility] | | | | | | for Health and | | | | | | Healing, Building 2 | | | | | | [place], [place] | | | | | | [address] | | | | | | [phone] | | | +--------+ + + + [...]
--- OUTSIDE RECORDS SUMMARY | ~2020-08-23 | XMS | Encounter Summary ---
Demographics + + + | Address | [address] | | | [place] [address] | + + + | Home Phone [...] Team Providers + +------+ + | Care Type Rolling Machine Operator Name | Role | Phone | + +------+ + | Justo Vazquez MD | PCP | | + +------+ + Encounter Details +--------+ + + + + | Date | Type | Department | Care Team | Description | +--------+ + + + + | 09/25/ | Hospital | Radiology/Imaging | Aleta Rebollar MD [address] | | | 2018 | Encounter | Lab at [facility] [address] | [address] | | | | | [facility] for | [place], [place] | | | | | Health and Healing, | [address] | | | | | [address] | [phone] | | | | | Floor [place], [place] | | | | | | [address] | | | | | | [phone] | | | +--------+ + + + [...]
--- OUTSIDE RECORDS SUMMARY | ~2020-08-23 | XMS | Encounter Summary ---
Demographics + + + | Address | [address] | | | [place] [address] | + + + | Home Phone [...] + +--------+ + | Medication Refill | 02/21/ | ketamine- mail script to patient | | Request | 2018 | | + +--------+ + Encounter Details +--------+ + + + + | Date | Type | Department | Care Team | Description | +--------+ + + + + | 02/21/ | Telephone | [facility] | Alex Sanchez, | Medication Refill | | 2018 | | Pain Center at | ,PhD [address] | Request (ketamine- | | | | [facility] | [address] | mail script to | | | | [address] | [place], [place] | patient) | | | | [facility] | [address] | | | | | and Martina, | [phone] | | | | | | | | | | | Floor [place], [place] | | | | | | [address] | | | | | | [phone] | | | +--------+ + + + [...] Telephone Encounter - Holly Edouard MA - 02/21/2018 5:54 PM PDTDiego called the pharmacy, spo ke with the pharmacist and authorized more refills. AS elephone Encounter - Holly Edouard MA - 02/21/2018 9:[address] Sanchez. Patient request script to be mailed to her in [place].Electr onically signed by Holly Edouard MA at 02/21/2018 9:19 AM PDTTelephone Encounter - Tracie Olivas - 02/21/2018 9:08 AM PDT . Reason for Call: No chief complaint on file. Patient: Tracie Farah Contact Information: Home Phone Work Phone Message: Description of reason for call: Patient called to see if Dr. Sanchez can write another Rx f or ketamine nasal spray. She states that she needs a hard copy because she fills it in [place]. She was not sure if it can be faxed to the pharmacy and requests that it be sent to [facility] if possible: [facility] in [place], [place] Fax #: [phone] Last Encounter with [facility]: Last Appointment in [facility] was on 02/01/18 [id number] 9:08 am with Alex Sanchez MD,P hD. Medication (clarify sig). Future Appointments: No future appointments scheduled in Pain Management. Patient's Preferred Pharmacy: Pharmacy Preferences: [facility] [address] [place] [address] Hours: 8am-9pm Mon-fri; 9-5:30pm Sat-sun E-Prescribing: Yes E-Prescribing Control Substances: Yes [facility] [place] [address] Hours: 9am-9pm Mon-fri / 9am-7pm Sat / 10am-6pm Sun E-Prescribing: Yes E-Prescribing Control Substances: Yes [id number] [place] [address] Hours: 9am-7pm Mon-fri / 9am-6pm Sat / 10am-5pm [place] E-Prescribing: Yes E-Prescribing Control Substances: Yes documented in this encount er Plan of Treatment Not on filedocumented as of this encounter Visit Diagnoses Not on filedocumented in this encounter"
--- OUTSIDE RECORDS SUMMARY | ~2020-08-23 | XMS | Encounter Summary ---
Demographics + + + | Address | [address] | | | [place] [address] | + + + | Home Phone [...] Providers + +------+ + | Care Power Line Lineman Name | Role | Phone | + +------+ + | Allegra Gandhi | PCP | | + +------+ + Reason for Visit + +--------+ + | Reason | Onset | Comments | | | Date | | + +--------+ + | Foot pain | | left | + +--------+ + | Procedure | 03/01/ | | | | 2011 | | + +--------+ + Consult to [place] (Routine) +--------+--------+ + [...] | | | regional | [place] | [address] | | | | | pain | FAMILY | [facility] | | | | | syndrome), | MEDICINE P | [address] | | | | | lower limb | [address] | [place], [place] | | | | | Gait | [place], | [address] | | | | | disturbance | [place] [address] | Phone: | | | | | Muscle pain | Phone: | [phone] | | | | | Procedures | [phone] | Fax: | | | | | REQUEST TO | Fax: | [phone] | | | | | SURGERY | [phone] | | | | | | SERVER SERVICE ASSISTANT | | | +--------+--------+ + + + + Encounter Details +--------+ + + + + | Date | Type | Department | Care Team | Description | +--------+ + + + + | 03/01/ | Procedure | Pain Center at [facility] | Dale Cantu, | Foot pain (left); | | 2011 | | [address] | [address] [facility] | Procedure | | | | [facility] [place] [facility] | [facility] [address]44 | | | | | and Healing, | [place], [place] | | | | | Building | [address] | | | | | Floor [place], [place] | [phone] | | | | | [address] | | | | | | [phone] | | | +--------+ + + + [...] migh t be different from the original. [facility] Patient Instructions - Post Interventional Procedure Date: 03/01/2012 Name: Tracie Farah Date of : 1990 Procedure Performed: LUMBAR SYMPATHETIC BLOCK. Procedure Provider: Dale Cantu If you have any problems you believe are associated with your procedure tonight, Please call the Hospital Tram Operator, and ask for the Pain Management Consu ltant. If you have problems or questions between 9:00 am and 4:00 pm, Please call the [facility] Nurse Triage Line, . If you go [...] to the larry ent. LAKEISHA HERRING MD [facility] documented in this encounter Progress Notes Dale Cantu MD - 03/01/2012 2:21 PM PDTI was present for the entire procedure (lumbar sympathetic block) and all bocanegra elements of this visit. I reviewed the documentation of the other [facility] providers and concur with Dr. Herring's findings. [...] benefit from multidisciplinary treatment. DALE CANTU MD Thermal Engineer, [facility] Pain Center Practice Professional, Pain Medicine Professor, Anesthesiology & Perioperative Medicine Diana Arroyo RN - 03/01/2012 1:35 PM PDT PRE-SEDATION: Date: March 01, 2012 Tracie Farah [id number] 1990 ALLERGIES: Morphine Previous reaction to Sedation/Analgesia: MEDICATIONS: Current Outpatient Prescriptions Medication DULoxetine (CYMBALTA) 30 mg Oral Capsule, Delayed Release(E.C.) HYDROcodone-acetaminophen (NORCO) 10-325 mg Oral Tablet levonorgestrel (MIRENA) 20 mcg/24 hr Intrauterine IUD LORazepam 1 mg Oral Tablet promethazine 25 mg Oral Tablet Meets NPO Guidelines. IV ACCESS: IV in Place IV Start Time 85923, 22g, DR BASELINE VS: See Sedation Flow Sheet. Tracie Farah [id number] 1990, presents to clinic for: Procedure: Lumbar [...] ml. 1344: Procedure complete. Pt returned to [place] [facility] in stable condiotion. IV dc'd. Cece [...] OPERATIVE NOTE Date: March 01, 2012 Location: [facility] Procedure Room Tracie Farah [id number] :1990, presents to clinic for: PROCEDURE: Lumbar sympathetic block LEVEL/LATERALITY: left L3 PRE-OPERATIVE DIAGNOSIS: 355.71B CRPS (complex regional pain syndrome), lower limb 719.46 Pain in joint, lower leg POST-OPERATIVE DIAGNOSIS: 355.71B CRPS (complex regional pain syndrome), lower limb 719.46 Pain in joint, lower leg ATTENDING PHYSICIAN: Dale Cantu CREATIVE LEAD: Fellow Lakeisha Herring MD ANESTHESIA: sedation delivered [...] sedation. Ms. Farah was escorted to the [facility] Procedure Ro om, where she was [...] compromise. Ms. Farah was transported to the [facility] post-procedure recovery area where she [...] block. Images were saved, and sent to [employer]. Ms. Farah will have her next appointment in 3 weeks for follow up with Dr. Cantu. She will maintain a pain diary for this procedure. Dale Cantu was present for the entire procedure. LAKEISHA HERRING MD documented in this en counter Miscellaneous Notes Scan - Other, Faculty - 03/06/2012 1:07 PM PDTElectronically signed by Faculty Other at 1:07 PM PDTScan - Other, Faculty - 03/06/2012 9:35 AM PDT documented in this encounter Plan of Treatment Not on filedocumented as of this encounter Procedures + +--------+ + + + | Procedure Name | Priori | Date/Time | Associated Diagnosis | Comments | | | ty | | | | + +--------+ + + + | NE INJECT NERV | Routin | 03/01/2012 | CRPS (complex | | | JUDAH LYMAN | e | 2:20 PM | regional pain | | | SYMPATH | | PDT | syndrome), lower | | | | | | limb Pain in joint, | | | | | | lower leg | | + +--------+ + + + | NE LOCM 100-199 | Routin | 03/01/2012 | CRPS (complex | | | MG/MLICON | e | 1:53 PM | regional pain | | | | | PDT | syndrome), lower | | | | | | limb Pain in joint, | | | | | | lower leg | | + +--------+ + + + | NE INJ BUPIVACAINE | Routin | 03/01/2012 | [...]
--- OUTSIDE RECORDS SUMMARY | ~2020-08-23 | XMS | Encounter Summary ---
Demographics + + + | Address | [address] | | | [place] [address] | + + + | Home Phone [...] Team Providers + +------+ + | Care System Support Specialist Name | Role | Phone | + +------+ + | Allegra Chaudhary | PCP | | + +------+ + Encounter Details +--------+ + + + + | Date | Type | Department | Care Team | Description | +--------+ + + + + | 10/21/ | Telephone | [facility] | Antony Beltre, | | | 2015 | | [place] [address] | [address] [facility] | | | | | [address] [facility] | [facility] | | | | | [facility] and | [place], [place] | | | | | [facility], [facility] 2 | [address] | | | | | [place], [place] | [phone] | | | | | [address] | | | | | | [phone] | | | +--------+ + + + [...] this encounter Miscellaneous Notes Telephone Encounter - Antony Beltre MD - 10/21/2015 2:17 PM PSTSpoke with hospitalist debra Parrish, where patient is admitted with pain, nausea and vomiting. She is unable to eat . Had EGD - negative except for what sounds like mild esophagitis. This is a recurrent probl em, happening over years, worse in past 6 months. She had prior EGD, UGI series, CT scan - not since Dec 2014. PMH: depression, anxiety, insomnia, chronic regional pain syndrome PSurgH: ccy, appy Meds: namenda, inhaled ketamine. Mentioned to referring MD that the inability to tolerate PO can be due to medication side e ffects, possibly due to underlying neurologic condtion, possibly due to another pathology. Dr Tala Jama also was on the line, accepted pt to medicine. GI service will be chowdhury ppy to consult on the patient. documented in this en counter Plan of Treatment Not on filedocumented as of this encounter Visit Diagnoses Not on filedocumented in this encounter"
--- OUTSIDE RECORDS SUMMARY | ~2020-08-23 | XMS | Encounter Summary ---
Demographics + + + | Address | [address] | | | [place] [address] | + + + | Home Phone [...] Team Providers + +------+ + | Care Translator Interpreter Name | Role | Phone | + +------+ + | Justo Vazquez MD | PCP | | + +------+ + Encounter Details +--------+ + + + + | Date | Type | Department | Care Team | Description | +--------+ + + + + | 01/26/ | Document-Sc | Health Information | Unknown . | | | 2017 | anned | Services [phone] | | | | | | [address] | | | | | | Mailcode: OP17A | | | | | | [facility] | | | | | | [place], [place] | | | | | | [address] | | | | | | [phone] | | | +--------+ + + + [...]
--- OUTSIDE RECORDS SUMMARY | ~2020-08-23 | XMS | Encounter Summary ---
Demographics + + + | Address | [address] | | | [place] [address] | + + + | Home Phone [...] Team Providers + +------+ + | Care Pigeon Fancier Name | Role | Phone | + [...] | | | | | syndrome | [facility] | [facility] | | | | | type 1 of | Rd | Rd [place], | | | | | left lower | [facility] [place] | [place] | | | | | extremity | [address] | [address] | | | | | Muscle pain | Phone: | Phone: | | | | | Procedures | [phone] | [phone] | | | | | REQUEST TO | Fax: | Fax: | | | | | SURGERY | [phone] | [phone] | | | | | MARKET SPECIALIST | | | +--------+---------+ + + + [...] | syndrome | [address] | | | | | type 1 of | Rd | Rd [place], | | | | | left lower | [place], [place] | [place] | | | | | extremity | [address] | [address] | | | | | Muscle pain | Phone: | Phone: | | | | | Procedures | [phone] | [phone] | | | | | REQUEST TO | Fax: | Fax: | | | | | SURGERY | [phone] | [phone] | | | | | MARKET SPECIALIST | | | | | | | IN INJ,ANES | | | | | | | AGENT,SCIATI | | | | | | | C | | | | | | | NERVE,SINGLE | | | | | | | IN INJECT | | | | | | | NERV | | | | | | | BLCK,OTHR | | | | | | | PERIPH NERV | | | | | | | IN SONO | | | | | | | GUIDE FOR | | | | | | | NEEDLE | | | | | | | PLACEMENT | | | | | | | IN MOD | | | | | | | SEDATION | | | | | | | >=5YRS SAME | | | | | | | MD/QUAL | | | | | | | PROV; INIT | | | | | | | 15 MIN IN | | | | | | | [...] | | | | | Procedures | [facility] [place] | [facility], | | | | | CONSULT TO | [address] | [place] | | | | | PAIN | | [address] | | | | | MANAGEMENT | | Phone: | | | | | | | [phone] | | | | | | | Fax: | | | | | | | [phone] | +--------+--------+ + + + + Encounter [...] | | [address] | [place], [place] | extremity (Primary | | | | [place] for [facility] | [address] | Dx); Muscle pain; | | | | and Healing, | [phone] | Pain of upper | | | | | | abdomen | | | | [place], [place] | | | | | | [address] | | | | | | [phone] | | | +--------+---------+ + + + [...] make sure this is scheduled with the [facility]. PRE-PROCEDURE INSTRUCTIONS 1. Please bring a interstate bus driver with you as we may give you medications that impair your ability to drive. This is necessary even if you do not receive sedation. You may take a taxi or ri [employer] if you are accompanied by a responsible [...] or blood thinning medications (other than aspirin), [facility] doctor who is doing your procedure will communicate with the provider who is prescribing y our anticoagulant therapy. If you do not have clear instructions on what to do with your an ticoagulant by 2 weeks before your procedure, please contact [facility] [place] to cl arify your instructions. The phone number for questions or concerns is [phone]. documented in this encounter Progress Notes Charline [...] [facility] was October 11, [...] [facility] as needed. Today, she complains [...] was treated by Christie Madrid MD in [place], [place] for three years before she abruptly ended her practice due to illness. This left her without a doctor to help her manage her chronic pain. In addition to her CRPS symptoms (diagnosed 2010), she has some sto mach issues that she has been working with Ilene Childs DNP, EMERGENCY ROOM CLERK-C. She has a scar on her stomach [...] a lot of great improvements while in [place], [place]. Weaning her off of the narcotic [...] her medical history that she spent in [place], [place] where she part ook in a [...] Spinal cord stimulator trial - Nerve blocks BODY PRESS OPERATOR Brief Pain Inventory: (ten= worst [...] Hemroidectomy Trial spinal cord stimulator leads 08/02/2012 [facility], Surgeon: Janak Riojas MD Cholecystectomy [...] a light load. Has been working at [employer], can' t work on [employer]. Has roommates. Allergies Allergen Reactions Morphine Anaphylaxis [...] by physician. Concentration is 150mg/mL. Compounded by [employer] ) LAMOTRIGINE 200 MG TABLET Take 1 [...] and summary of old medical records (source: [facility]), as summarized in the body of [...] to her by Christie Madrid MD in [place], [place]. As she has since left the practice, Ms. Amelie seth no longer has a prescriber for this medication. At the [facility], we typically [...] today. I jacqueline poon spoken with our manager medical, Evelia Gonzalez MD who agrees that as [...] peripheral nerve stimulation. As she lives in [place], [place] with her family (3.5 hours away), [...] by Sonia Key. Alex Sanchez MD PhD Air Marshal Anesthesiology and Pain Management [facility] Post visit: I reviewed the UDS, and [...] + + | Performing | Address | City/State/[facility] | Phone Number | | Organization | | | | + + + + + | [facility] | [address] | [place] [address] | | | SERVICESLILLIAN | [address] [...]
--- OUTSIDE RECORDS SUMMARY | ~2020-08-23 | XMS | Encounter Summary ---
Demographics + + + | Address | [address] | | | [place] [address] | + + + | Home Phone [...] Team Providers + +------+ + | Care Optomechanical Technician Name | Role | Phone | [...] | | syndrome | [place] | [facility] | | | | | type 1 of | Rd | Rd [place], | | | | | left lower | [place], [place] | [place] | | | | | extremity | [address] | [address] | | | | | Procedures | Phone: | Phone: | | | | | REQUEST TO | [phone] | [phone] | | | | | SURGERY | Fax: | Fax: | | | | | SLEEP TECH | [phone] | [phone] | +--------+---------+ + + + + Encounter Details +--------+---------+ + + + | Date | Type | Department | Care Team | Description | +--------+---------+ + + + | 12/07/ | Office | [facility] | Eulogio | Complex regional | | 2019 | Visit | Pain Center at | MD Irene [address] | pain syndrome type 1 | | | | [facility] | [address] [place], | of left lower | | | | [address] | [place] [address] | extremity (Primary | | | | [facility] | [phone] | Dx); S/P insertion | | | | and Healing, | | of spinal cord | | | | Building , | | stimulator | | | | Floor [place], [place] | | | | | | [address] | | | | | | [phone] | | | +--------+---------+ + + + [...] [facility] was December 05, 2018, [...] her 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 SIGNAL PERSON Brief Pain Inventory: (ten= worst possible pain [...] Hemroidectomy Trial spinal cord stimulator leads 08/02/2012 [facility], Surgeon: Janak Riojas MD [...] History Social History Narrative Single. Goes to [employer] college with a light load. Has been working at [employer], can' t work on [employer]. Has roommates. Allergies Allergen Reactions Morphine Anaphylaxis [...] GRAM-5.86 GRAM SOLUTION Take as directed by [facility] Digestive [facility]- 2 gallon bowel prep POLYETHYLENE [...] and summary of old medical records (source: [employer]), as summarized in the body of the [...] December [address] Bethany Cortez, Sonia Yesi, assisted with the templating of this note for Irene Krishnan MD but was not physically present for the encounter. Irene Krishnan MD [facility] AT [address] & [facility], 4th Floor Mail Code: [address] [place], [place] [address] documented in thi s encounter Plan of Treatment Not on filedocumented as of this encounter Visit Diagnoses + + | Diagnosis | + + | Complex regional pain syndrome type 1 of left lower extremity - Primary | + + | S/P insertion of spinal cord stimulator | + + documented in this encounter
--- OUTSIDE RECORDS SUMMARY | ~2020-08-23 | XMS | Encounter Summary ---
Demographics + + + | Address | [address] | | | [place] [address] | + + + | Home Phone [...] Author + + + | Author | [facility] | | | and [place] | + + + | Organization | [facility] | | | and [...] [place] | | | | | [address] | | + + + + + | Bryant Farah | ECON | Unknown | | + + + + + Care Team Providers + +------+ + | Care Distillation Operator Name | Role | Phone | + +------+ + PCP | Unavailable | + +------+ + Encounter Details +--------+ + + + + | Date | Type | Department | Care Team | Description | +--------+ + + + + | 03/20/ | Hospital | [facility] | Ulices Hayes, | 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 T his also failed to [...] stable condition. She will follow-up with her [facility] physician for continued medical management. [...] 03/22/131929 Date of Service: 03/22/131920 Status: Signed Recruitment Officer: Ava Sue RN (Registered Nurse) Patient tolerated [...] 03/22/131854 Date of Service: 03/22/131854 Status: Signed Recruitment Officer: Ava Sue RN (Registered Nurse) Discharge teaching [...] 0657 Date of Service: 03/22/13651 Status: Signed Recruitment Officer: Ulices Hayes MD (Physician) [facility] Service: Interventional Pain Management Pre-Operative [...] Author: JUSTIN Ospina Service: (none) Author Type: Color Strainer Filed: 03/21/131035 Date of Service: 03/21/131031 Status: Addendum Recruitment Officer: JUSTIN Ospina (Color Strainer) Related Notes: Original Note by JUSTIN Ospina (Color Strainer) filed at 03/21/13 1 036 Met w/22yo F Pt who lives w/parents in [place], [place]. Pt lives in two story house [...] home. 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 lices Brock MD - 03/21/2013 7:27 AM PDT Progress Notes by Ulices Hayes MD at 03/21/13726 Author: Ulices Hayes MD Service: Interventional Pain Management Author Type: Physic deya Filed: 03/21/1335 Date of Service: 03/21/13726 Status: Signed Recruitment Officer: Ulices Hayes MD (Physician) [facility] Service: Interventional Pain Management Pre-Operative [...] 0646 Date of Service: 03/21/13639 Status: Signed Recruitment Officer: Darlin Orlando RN (Registered Nurse) Pt had [...] Date of Service: 03/19/13 1034 Status: Addendum Recruitment Officer: Ulices Hayes MD (Physician) Related Notes: Original Note by Nataliia Lindsey RN (Registered Nurse) filed at 03/19/13 1 049 [facility] Service: Interventional Pain Management History [...] since. She has undergone extensive therapy at [facility] at pain clinics in [place] as well and [place], [place]. She has had sympathetic nerv e [...] oriented x4. Head: Normocephalic and atraumatic. Eyes: [place] conjunctiva and sclera clear Mouth: No deformity [...] She has undergone extensive therapy at [facility] at pain clinics in [place] as well and [place], [place]. She has had sympathetic nerve blocks [...] 03/22/13838 Date of Service: 03/22/13838 Status: Signed Recruitment Officer: Ava Sue RN (Registered Nurse) Problem: Pain [...] 03/22/135 Date of Service: 03/22/13214 Status: Signed Recruitment Officer: Marleen Sheppard RN (Registered Nurse) Problem: Pain [...] 1058 Date of Service: 03/21/131057 Status: Signed Recruitment Officer: Ava Sue RN (Registered Nurse) Problem: Pain [...] (none) Author Type: Registered Nurse Filed: 03/20/13 4428 Date of Service: 03/20/131899 Status: Signed Recruitment Officer: Justo Romeo RN (Registered Nurse) Problem: Pain [...] Note by Ulices Hayes MD at 03/20/13 3643 Author: Ulices Hayes MD Service: Interventional Pain Management Author Type: Physic deya Filed: 03/20/13 1132 Date of Service: 03/20/13 1124 Status: Signed Recruitment Officer: Ulices Hayes MD (Physician) [facility] Service: Interventional Pain Management Operative Note Pre-operative Diagnosis: #1. Complex regional pain syndrome. #2. Chronic pain syndrome Post-operative Diagnosis: Same Procedure(s): Placement of intrathecal catheter for trial of intrathecal pain medications for pain control. Surgeon: ULICES HAYES MD Product Mgr(s): none Anesthesia: Moderate sedation and local anesthesia. [...]
--- OUTSIDE RECORDS SUMMARY | ~2020-08-23 | XMS | Encounter Summary ---
Demographics + + + | Address | [address] | | | [place] [address] | + + + | Home Phone [...] + +------+ + | Care Mental Health Program Manager Name | Role | [...] + + | 10/21/ | Hospital | [place] [address] [address] | [place], | | | 2015 - | Encounter | [facility] | MD [address] | | | | | [address] [place] [address] | [facility] | | | 10/25/ | | [place], [place] | [place], [place] | | | 2014 | | [address] | [address] | | | | | [phone] | [phone] | | | | | | | | | | | | Clifton Childers | | | | | | MD Nhan [address] [facility] | | | | | | [facility] | | | | | | [place], [place] | | | | | | [address] | | | | | | [phone] | | | | | | | [...] PM PSTInternal Medicine Summary and Discharge Rec [facility] Internal Medicine Attending: Clifton Childers MD Author: [...] child. Followed by Dr. Katy berrios at [facility] in [place], [place]. Has been on a stable regimen for the past few years (intra nasal ketamine, lamictal, memantine, ibuprofen). The Acute Pain Service was consulted during this hospitalization and felt that it is unlikely that these medications were causing her a bdominal signs and symptoms and recommended continuing her regimen with no changes. -Continue home CRPS regimen, as above -Follow-up with Dr. Molina PRN #Anxiety/Depression: As above, discussed with patient that [...] history, primarily secondary to [facility] of complicated ankle fracture [...] agreeable with our plans. Clifton Childers MD Probation Worker Division of [facility] Medicine Teaching Attending I spent 45 minutes [...] cause of her pain, but most li patriciay is not helping things -GI following, appreciate recs -OSH imaging and endoscopic reports available in paper chart -APAP, oxycodone, dilaudid for pain -PRN zofran and phenergan -More aggressive bowel regimen - start lactulose q2hrs until having BMs #Complex regional pain syndrome: Thought to be 2/2 LLE injury as a child. Followed by Dr. Katy berrios at [facility] in [place], [place], has been on a stable regimen [...] and plan. Lolita Ma MD, MPH Pager #[phone] PGY-1, Anesthesiology [facility] Associated attestation - Clifton Childers MD - 10/24/2015 6:53 PM PSTGeneral Medicine Attending Progress Note Author: Clifton Cihlders MD Hospital Day # 3 PCP: BJORN Villalpando I personally interviewed the patient, performed the bocanegra elements of the physical examinatio n, and personally formulated the assessment and plan with Dr Moreau and Dr Ma. Please s [facility] progress note for additional details; [...] agreeable with our plans. Clifton Childers MD Probation Worker Division of [facility] Medicine Teaching Attending I spent 45 minutes [...] 72 hours (or 3 results) Recent Labs 10/21/15 2139 WBC 8.22 HB 13.4 HCT 40.3 PLT 250 Chemistries: Last 72 Hours (or 3 results): Recent Labs 10/21/15 2139 NA 139 K 3.8 CL 106 BICARB 29 BUN 4* CR 0.84 GLU 89 CA 9.0 MG 2.2 Liver Tests: Last 72 hours (or 3 results) Recent Labs 10/21/15 2139 AST 25 ALT 50 TBILI 0.5 AP 81 ALB 4.2 TP 7.4 Lab Results Component Value Date INRPT 1.06 10/21/[address] pending Subha Barbosa M D - 10/23/2015 12:58 PM PST General Internal Medicine 5 Progress Note 24 Hour Events: -No acute events, VSS -Continued 8 pain on max ketamine gtt -> d/c'd overnight, back on opioids -GI consulted, recommend CT enterography -[facility] pain , Dr. Madrid in contact with [...] child. Followed by Dr. Katy berrios at [facility] in [place], [place], has been on a stable regimen for [...] and plan. Lolita Ma MD, MPH Pager #[phone] PGY-1, Anesthesiology [facility] Associated attestation - Clifton Childers [...] would like the patient to establish in keno terminal operator counseling and/or CBT as an outpatient if willing. Patient/Family Goals & Expectations: Above problems discussed with the patient who understands and is agreeable with our plans. Clifton Childers MD Probation Worker Division of Hospital Medicine Teaching Attending I [...] good coping mechanism Heme/Lymphatic: negative Endocrine: negative Utility Spray Operator: negative Past Medical History: History of chronic or preoperative pain: yes: location: left lower extremity. Typical inten sity 6/10 Prior to hospitalization: Opioids: None Other analgesics: [...] with questions/concerns Aba Dorman MD, PGY 3 Railway Signal Operator [place]-2 APS Pager: [phone] BILLING INFORMATION Deferred to attending physician. Ms. [...] up at this point. Please contact APS (#[id number]) if further assistance is needed. Ulices Lopez MD BILLING INFORMATION [facility] DEPARTMENT: [phone] Place of Service:- Inpatient Date of Service: 10/23/2015 CSN: [id number] Suggested Modifier: GC - Resident Involved Suggested CPT: 10435 - Follow up visit (includes PNB) - [...] today recd call from Dr. Madrid from [facility]. She has known pt for many yea rs and suggested ketamine and propofol gtt. Updated her on APS recommendations. She will hav e her office fax her clinic records to us. Pt was seen with Dr. Childers. Milton Moreau MD PGY-3, Internal Medicine Pager [phone] oPro blakely RN - 10/22/2015 10:06 AM PSTActing as [...] MEDICAL CENTER UR Committee: Kerry HARRIS RN AC documented in this encoun ter H&P Notes Tucker Rodarte, Charline M - 10/22/2015 4:05 AM PSTFormatting of this note might be different fr om the original. Internal Medicine History and Physical Attending Physician: Clifton Childers MD Chief Complaint: acute on chronic nausea/vomiting/abdominal pain HPI: This is a 25 JEFFRY w/pmhx of complex regional pain syndrome 2/2 to a L ankle fx ~ 13 yrs ago, appendectomy, and cholecystectomy, who presents as a transfer from an outside hospital for acute on chronic abdominal pain, nausea, and vomiting. The pt reports that around June, she began to experience intermittent bilateral upper abd ominal and epigastric pain, reflux, and nausea/vomiting. No bowel symptoms. No obvious patte rn to her GI sxs. She had had her gallbladder out about 1 year prior. Her PCP prescribed her a number of medications, including zantac, prevascid, protonix, carafate, and aloe vera keith er with some improvement in her sxs. After Thanksgiving, however, she had acute onset of sim ilar abdominal complaints and refractory nausea and vomiting, prompting her to present to [facility] in [place], [place] on 10/15/15. There, she underwent an EGD w/biopsies, whic h showed only a small area of erythema 2/2 to vomiting near the GE junction. No evidence of ulcer or Morse's. She then underwent a gastric emptying study, which showed only a mild de lay in transit. Her nausea proved refractory to scheduled phenergan, ondansetron, scopalamin e patch, and prn prochlorperazine, and her epigastric pain was constant and mildly responsiv e to IV dilaudid. Due to concerns that pt would need a higher level of care, the case was di scussed with Dr Beltre on 10/21, who recommended admission to inpatient medicine service. In terms of ROS, the pt also reports an associated bilateral MERINO. No photophobia, vision luke nges, fevers, chills, change in stool habits, etc. Of note, the pt also has a hx of CRPS in the LLE following an injury at age 11 in which she sustained a fx and underwent a fasciotomy and neurectomy. For this she follows with a neurol ogist at [facility] in [facility]. She has been stable on her current pain regimen of intranasal k etamine, lamotrigine, memantine, and ibuprofen for 1.5 yrs. Is also rx'd lorazepam. She prev iously followed with the [facility] pain clinic, where she underwent a spinal cord stimulator in 2 012 w/o improvement in sxs. Was recently enrolled in a research study at the [facility] Mgmt in [facility], looking at use of bisphosphonates in chronic pain. Received her last dose of the study medication in early September. Past Medical History: I have updated the Problem List with the patient's relevant diagnoses. Past Medical History CRPS (complex regional pain syndrome), lower limb Overview Left, injury 2001, multiple surgical procedures Gait disturbance Muscle pain Overview Diffuse with fibromyalgia points positive Adjustment reaction Pain in joint, lower leg Disturbance in sleep behavior Overview ICD10 Also hx of appendectomy and cholecystectomy Review of Systems: ROS negative except as noted above Home Medications: I have obtained and documented the prior to admission medication list and it is accurate. Prior to Admission Medications Prescriptions CARAFATE 100 mg/mL oral suspension LORazepam 1 mg Oral Tablet Sig: Take 2 mg by mouth every four hours as needed. ibuprofen 600 mg oral tablet Sig: Take 600 mg by mouth every six hours as needed. ketamine 100 mg/mL injection solution Simg/Ml Susu. Takes intranasal every 3 hrs prn lamoTRIgine 200 mg oral tablet Si mg three times daily. levonorgestrel (MIRENA) 20 mcg/24 hr Intrauterine IUD Si Each by Intrauterine route once. May be removed and replaced with a new unit at anyt ari during menstrual cycle; do not leave any one system in place for > 5 years. memantine 10 mg oral tablet Sig: Take 28 mg by mouth two times daily. Indications: pain methylphenidate 10 mg oral tablet Si mg once daily in the morning. methylphenidate 10 mg oral tablet Sig: Take 10 mg by mouth once daily in evening as needed. Indications: fatigue naltrexone 50 mg oral tablet ondansetron (ZOFRAN) 8 mg Oral Tablet Sig: Take 8 mg by mouth three times daily. pantoprazole 40 mg oral tablet,delayed release (DR/EC) Sig: two times daily. Facility-Administered Medications: None Allergies I have reviewed and updated the allergy list. Allergies Allergen Reactions Morphine Anaphylaxis Social History I have updated the Social Hx as appropriate. Lives with parents in [place], [place] Just got on disability, hoping to move to her own apt soon No hx of cigarettes Previously smoked marijuana but hasn't in months Occasional ETOH, denies heavy use Denies other illicits Mother: Patricia Keller [phone] Family History I have updated the Family Hx as appropriate. Family History Problem Relation Alcohol/Drug Maternal Grandfather Allergies Mother Allergies Father Allergies Brother Allergies Maternal Grandfather Arthritis Maternal Grandmother Arthritis Maternal Grandfather Arthritis Paternal Grandmother Arthritis Paternal Grandfather Asthma Brother Asthma Maternal Grandfather Diabetes Paternal Grandmother Headache Mother Headache Maternal Grandmother Hypertension Mother Hypertension Father Stroke Maternal Grandfather Physical Exam: Last 24 hour min/max Temp: 37 C (98.6 F) Temp Min: 37 C (98.6 F) Max: 37 C (98.6 F) Pulse: 95 Pulse Min: 95 Max: 95 Resp: 16 Resp Min: 16 Max: 16 BP: (!) 137/92 mmHg BP Min: 137/92 Max: 137/92 SpO2: 100 % SpO2 Min: 100 % Max: 100 % Body mass index is 28.29 kg/(m^2). General: young, tired looking woman lying on side, polite, NAD HEENT: dry MM Neck: no LAD, no thyromegaly Chest: BCTA Cardiac: RRR, not tachy, no m/r/g Abd: + bs, soft, ttp epigastrium, no rebound or guarding, no suprapubic tenderness Back: no spinal or CVA tenderness Neuro: CN 2-12 intact, strength/sensation intact, hyperesthesia over L leg from foot to kne e Extremities: no peripheral edema, no rashes, no skin discoloration/pallor over L leg Laboratory Interpretation: Recent Labs 10/21/159 WBC 8.22 RBC 4.30 HB 13.4 HCT 40.3 PLT 250 Chemistries: Last 72 Hours (or 3 results): Recent Labs 10/21/159 NA 139 K 3.8 CL 106 BICARB 29 BUN 4* CR 0.84 GLU 89 CA 9.0 MG 2.2 Liver Tests: Last 72 hours (or 3 results) Recent Labs 10/21/15 2139 AST 25 ALT 50 TBILI 0.5 AP 81 ALB 4.2 TP 7.4 Imaging Interpretation: OSH EGD: small patch of erythema at GE junction OSH gastric emptying study: slightly delayed emptying time - 1/2 emptying time is 145 mins Assessment and Plan: This is a 25 YOM w/hx of complex regional pain syndrome LLE and prior cholecystectomy who p resents from OSH with acute on chronic epigastric pain, nausea, and vomiting of unclear etio logy, with EGD negative and gastric emptying study only mildly delayed. #Acute on chronic abdominal pain, nausea, and vomiting: As stated above, unclear etiology. Most likely functional abdominal pain, but this is a diagnosis of exclusion, and pt deserves further w/u. Not biliary colic, as pt has had cholecystectomy. EGD has ruled out esophagiti s/gastritis, PUD, or other upper GI luminal or mucosal abnormalities. Esophageal dysmotility could be considered, but seems unlikely in light of essentially normal gastric emptying adiel dy. Will need to follow up on outside hospital biopsies, but presumably these were negative. At this point, may need to consider more esoteric etiologies such as abdominal migraine, ab dominal angioedema, or central cause such as idiopathic intracranial hypertension. Also cons ider possible endocrine w/u including w/u for porphyria. Will attempt to control sxs tonight and c/s GI in the AM for recommendations re: further imaging and work-up. While pt is unabl e to take PO, no significant lyte derangements on labs. -zofran 8 mg q 8 hrs prn, escalate antiemetics as needed - consider reglan -GI cocktail, carafate -continue home PPI (switched protonix 40 BID to omeprazole 40 BID due to formulary restrict ions) -clear liquid diet, advance as tolerated -fluid prn, giving 1L LR now, consider maintenance with D5LR -scheduled APAP, oxycodone 5-10 q 4 hrs prn with dilaudid 0.1 - 1 mg q 4 hrs prn for breakt hrough -formal GI consult in the AM -consider abd CT w/contrast in the AM (appears this was not done at the OSH) #Complex regional pain syndrome: Long standing issue. Pt has been stable on current regimen of intranasal ketamine, lamictal, memantine, and ibuprofen for 1.5 yrs. Suspect that given chronicity of regimen, it is unlikely to be contributing to acute GI complaints, but will se ek formal opinion from pain service. In the meantime, will attempt to continue pt's home hudson n regimen for now, with exception of intranasal ketamine, which pharmacy cannot provide teri ght. -continue memantine 28 mg BID -continue lamictal 200 mg TID -continue home ibuprofen 600 mg q 6 h prn -holding home intranasal ketamine for tonight given pharmacy limitations -talked to pain service tonight; they will do a formal pain consult in the AM #Polypharmacy: concern for possible polypharmacy given pt's multiple centrally acting medic ations above in addition to prn lorazepam (rx'd for anxiety, unclear if pt has tried an SSRI ) and methylphenidate (rx'd for fatigue - unclear if this is an appropriate indication). Hol ding for now and will defer to day team regarding prudence of continuing these meds. -holding methylphenidate and lorazepam for now Routine care: Diet: clear liquid, advance as tolerated Bowel regimen: scheduled miralax and senna/docusate while rx'ing opiates DVT ppx: subq heparin q 8 hrs Code: FULL This pt will be staffed with attending of record within 24 hrs. Charline Ceballos MD PGY-2, Internal Medicine Pager [phone] Associated attestation - Clifton Childers MD - 10/22/2015 2:23 PM PSTGeneral Medicine Attending Admission Note Author: Clifton Childers MD Hospital Day # 1 PCP: BJORN Villalpando I personally interviewed the patient, performed the bocanegra elements of the physical examinatio n, and personally formulated the assessment and plan with Dr Ceballos. Please see Admission note for additional details; notable exceptions as written below. ROS as per note, all o thers negative. 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 The patient has had numerous episodes of severe abdominal pain over the last couple years, the most recent begin marcella this june (epigastric radiating to back, sharp and burning) and waxing/waning over th is period of time without clear triggers or relieving factors. Workup at outside hospital h as included a normal gastric emptying study, EGD with mild esophagitis, normal electrolytes. Intensive IV antiemetic and opioid pain control regimen has resulted in mild benefit only. No BM now since admission to OSH (~1 week). Abdominal pain (not identical to current) one year prior resulted in cholecystectomy and appendectomy 1 week apart, though patient unable to provide an indication for these procedures aside from continued pain. I question whethe r true pathology was present at that time; invasive interventions are not uncommon in patien ts with unremitting pain of likely functional or somatic etiology. I am particularly concer isabel that the patient has recently applied and been accepted for full-time disability and see ms disinterested in school, work or other non-medical aspects of her life. -aggressive bowel regimen -GI and pain service eval -wean opioids as IV ketamine is initiated -recommend counseling/therapy to increase awareness of phychiatric-somatoform relationship, assist with motivation to participate in life Patient/Family Goals & Expectations: Above problems discussed with the patient who understands and is agreeable with our plans. Clifton Childers MD Probation Worker Division of Hospital Medicine Teaching Attending I spent 75 minutes in the care of this patient, including > 50% at bedside obtaining furthe r history and counseling regarding abdominal pain, pain management, psychiatric component.do cumented in this encounter Consult Notes Ewa Hayward MD - 10/22/2015 12:12 PM PST Fellow Gastroenterology Consult - Initial Author: Ewa Hayward MD Consult Attending: Brayan Beltre MD Reason for Consult: Acute on chronic abdominal pain, nausea, and vomiting Referring Attending: Clifton Childers MD IMPRESSION: 25 year-old female with recurrent episodes of abdominal pain, N/V with unremark able EGD and gastric emptying study. Differential diagnosis includes intermittent obstructio ns, medication side effect (though unusual to feel well in between episodes without medicati on changes), or functional GI disorder such as cyclic vomiting syndrome. As far as we know, she has not had cross sectional imaging to r/o small bowel pathology and would thus begin t here. We also note that the tenderness in her abdomen is superficial and very localized. Althou gh this would not explain the N/V, question neuroma or abdominal wall pain. Would ask pain team to consider local lidocaine injection. RECOMMENDATIONS: -- CT enterography -- Pain team to consider local lidocaine injection for superficial point tenderness -- Please obtain primary data including prior endoscopic reports and all prior imaging stud ies Thank you for this consult. We will continue to follow with you. This plan was discussed and formulated with the gastroenterology attending of record, Dr. Lulu kimball, who agrees with the above assessment and recommendations. HPI: 25 year-old female who was transferred from outside hospital for a recurrent episode o f abdominal pain, nausea, and vomiting. She tells me that in June, she had sudden onset o f abdominal pain, nausea, and vomiting. She thought maybe she had food poisoning. This las ruddy approximately three days and seemed to resolve on its own. She had two additional episo dada and then this current one, which happens to be the worse. She initially saw her PCP for this and she gave her Protonix, ranitidine, Carafate, TUMS, aloe vera as well as Zofran. These seemed to help with her past episode, but not this one. C urrent episode started the Tuesday before (10/06/15) and given persistence, she was eventually admitted to [facility] in [facility] on 10/15/2015. She has been in the hospital since then and was transferred to [facility] for further management. Pain is the first symptom that she gets with each episode. The pain is located in the epi gastric region and radiates to her back. It is constant burning pain that worsens in severi ty prior to emesis. Sometimes improves shortly after emesis, but not always. Also notes th at it's uncomfortable to take a deep breath. Today she has not had any emesis and yesterday she had two episodes. Prior to that, however, she was having 10 episodes of emesis. She denies any other history of chronic abdominal pain. Between these episodes she feels completely normal, aside from some mild heartburn/nausea that responds very well to antacids . She does note that about two years ago, when she was getting off of narcotics, she was hav ing intractable vomiting. This led to appendectomy without improvement in her symptoms and e ventual cholecystectomy as well. Denies history of jaundice. No blood in her emesis. Does have some heartburn in her lower chest. Baseline bowel patte rn is to have 1 BM every 2-3 days. She has not had one since she was admitted to the [facility], but this is in the setting of practically no PO intake. No blood in stools. No black / t arry stools. She has not weighed herself since this all started. No fevers / no chills / no night sweats. She does take ibuprofen on occasion (every day x 1 week on occasion, and then weeks without it). GI HISTORY / PRIOR ENDOSCOPY Colonoscopy in 2008 for hematochezia attributed to hemorrhoids EGD with biopsies - no report available, images reviewed that patient had at bedside Gastric Emptying Study - no report available, images reviewed No CT or MRI PAST MEDICAL HISTORY Complex regional pain syndrome left leg due to ankle fracture, s/p multiple procedures ADHD ("pain brain" per patient) SURGICAL HISTORY Tonsillectomy / Adenoidectomy Ankle surgery x 9 Fasciotomy Neurectomy foot Left lumbar sympathetic ganglion block Hemorrhoidectomy Trial of spinal cord stimulator leads Spinal medicine pump trial Cholecystectomy Appendectomy HOME MEDICATIONS ARAFATE 100 mg/mL oral suspension ibuprofen 600 mg oral tablet Take 600 mg by mouth every six hours as needed. ketamine 100 mg/mL injection solution 150mg/Ml Susu. Takes intranasal every 3 hrs prn lamoTRIgine 200 mg oral tablet 200 mg three times daily. levonorgestrel (MIRENA) 20 mcg/24 hr Intrauterine IUD 1 Each by Intrauterine route once. Ma y be removed and replaced with a new unit at anytime during menstrual cycle; do not leave an y one system in place for > 5 years. LORazepam 1 mg Oral Tablet Take 2 mg by mouth every four hours as needed. memantine 10 mg oral tablet Take 28 mg by mouth two times daily. Indications: pain methylphenidate 10 mg oral tablet 20 mg once daily in the morning. methylphenidate 10 mg oral tablet Take 10 mg by mouth once daily in evening as needed. Reyna cations: fatigue naltrexone 50 mg oral tablet ondansetron (ZOFRAN) 8 mg Oral Tablet Take 8 mg by mouth three times daily. pantoprazole 40 mg oral tablet,delayed release (DR/EC) two times daily CURRENT MEDICATIONS Current facility-administered medications: acetaminophen (TYLENOL) tablet 1,000 mg, 1,000 m g, oral, Q6H, Charline Ceballos MD, 1,000 mg at 10/22/15 0402 aluminum-magnesium hydroxide-simethicone (MAALOX; MYLANTA) 200-200-20 mg/5 mL suspension 30 mL, 30 mL, oral, Q4H PRN, 30 mL at 10/22/15 0202 AND [COMPLETED] lidocaine viscous (XYL OCAINE VISCOUS) 2 % mucosal solution 30 mL, 30 mL, oral, ONCE, Charline Ceballos MD, 30 mL a t 10/22/15 0202 heparin injection 5,000 Units, 5,000 Units, subcutaneous, Q8H, Charline Ceballos MD, 5,000 Units at 10/22/15 1027 HYDROmorphone (DILAUDID) injection 0.5-1 mg, 0.5-1 mg, intravenous, Q4H PRN, Charline parra MD, 1 mg at 10/22/15 0909 ibuprofen (MOTRIN) tablet 600 mg, 600 mg, oral, Q6H PRN, Charline Ceballos MD influenza vaccine (FLUZONE) (PF) IM injection (age 3 years or greater) 0.5 mL, 0.5 mL, intr amuscular, ONE TIME IN THE MORNING, Clifton Childers MD lamoTRIgine (LAMICTAL) tablet 200 mg, 200 mg, oral, TID, Charline Ceballos MD, 200 mg at 1030 memantine (NAMENDA) oral dose 27.5 mg, 27.5 mg, oral, BID, Charline Ceballos MD, 27.5 mg at 10/22/15 1030 omeprazole (PRILOSEC) capsule 40 mg, 40 mg, oral, BID AC, Clifton Childers MD, 40 mg at 10/22/15 1026 ondansetron (ZOFRAN) tablet 8 mg, 8 mg, oral, Q8H PRN, Charline Ceballos MD, 8 mg at 0517 oxyCODONE (immediate release) (ROXICODONE) tablet 5-15 mg, 5-15 mg, oral, Q4H PRN, Charline Ceballos MD, 5 mg at 10/22/15 1027 polyethylene glycol (MIRALAX) powder 17 g, 17 g, oral, DAILY, Charline Ceballos MD, 17 g at 10/22/15 1027 senna-docusate (SENOKOT S) 8.6-50 mg 1 tablet, 1 tablet, oral, DAILY, Charline Ceballos MD, 1 tablet at 10/22/15 1027 sucralfate (CARAFATE) suspension 1 g, 1 g, oral, AC and HS, Charline Ceballos MD, 1 g at 1027 ALLERGIES Morphine SOCIAL HISTORY Never smoker Occasional alcohol On disability Did use cannabis oil when she was tapering off narcotics, but non in 2 months FAMILY HISTORY Mother had migraines Mother also had part of her intestine removed, unclear reason REVIEW OF SYSTEMS 10 point review of systems is negative except as mentioned in HPI. PHYSICAL EXAM: Last Vitals: BP 107/52 | Pulse 65 | Temp 36.3 C (97.3 F) | RR 16 | Ht 1.626 m (5' 4") | Wt 74.8 kg (164 lb 14.5 oz) | SpO2 98% | BMI 28.29 kg/(m^2) 24 Hour Vital Min/Max: Systolic (24hrs), Av mmHg, Min:107 mmHg, Max:137 mmHg Diastolic (24hrs), Av mmHg, Min:52 mmHg, Max:92 mmHg Pulse Min: 65 Max: 95 Temp Min: 36.3 C (97.3 F) Max: 37 C (98.6 F) Resp Min: 16 Max: 18 SpO2 Min: 98 % Max: 100 % Intake/Output Summary (Last 24 hours) at 10/22/15 1212 Last data filed at 10/22/15 0815 Gross per 24 hour Intake 1147 ml Output 800 ml Net 347 ml General: Awake, alert, oriented. No distress. Well-appearing. HEENT: No scleral incterus. No conjuctival injection. Neck: No lymphadenopathy, masses or thyromegaly. Cardiovascular: Regular rhythm, normal rate.. Chest: Nonlabored breathing Abdomen: Soft, TTP epigastric region Extremities: No edema, Skin: No rashes or lesions. CBC with diff last 72 hours (or [...] Results Component Value Date INRPT 1.06 10/21/2015 IMAGING: No applicable imaging Associated attestation - Antony Beltre MD - 10/22/2015 9:02 PM PSTI personally intervie wed the patient, performed the pertinent parts of the physical examination and personally fo rmulated the plan with the resident. I agree with the residents documentation and have docu mented any additions or exceptions. [facility] DEPARTMENT: GI - [id number] Place of Service: [address] [place] [address] CSN: [id number] Suggested Modifiers: GC - Resident Involved Suggested Level of Care: 40525 - Initial, Comp; Mod complex 50 min Aba Dorman MD - 10/22/2015 8:46 AM PSTFormatting of this note might be different fr om the original. INPATIENT ADULT PAIN SERVICE INITIAL VISIT NOTE Date of Service: 10/22/2015 Author: Aba Dorman MD Pain Service Attending Physician: Alex Sanchez MD, PhD Reason for Evaluation: Chronic pain secondary to CRPS, question of side effects of current pain control regimen Requesting Provider: internal medicine, Charline Ceballos Main Complaint: CRPS of LLE History of Present Illness: Tracie Farah is a 25 y.o. female who presents with a 5 year history of left lower extremity pain from her chronic CRPS. This pain began at age 11 when she sustained a an ankle fracture after a trampoline injury. At that time she underwent a fasciotomy and neurectomy. Pain was at bay until 5 years ago she dropped a tire iron on h er ankle For this she follows with a neurologist at [facility] in [facility]. She has been stable on her current pain regimen of intranasal ketamine, lamotrigine, memantine, and ibuprofen fo r 1.5 yrs. Is also rx'd lorazepam. She previously followed with the [facility] pain clinic, where she underwent a spinal cord stimulator in 2011 w/o improvement in sxs. Was recently enrolled in a research study at the [facility] in [facility], looking at use of bisphosphonates in chronic pain. Received her last dose of the study medication in early September. Ms Farah presents as a transfer from an outside hospital for acute on chronic abdominal pain, nausea, and vomiting. APS was consulted to approve the use of her intranasal ketamine. Additionally, the admitting team requests that we comment on the possibility of whether her chronic ketamine and memantine use could be contributing to her chronic N/V and abdominal p ain. She Reports this started about 2 weeks ago. Her pain score at rest is 6/10. With acti vity, her pain score is 9/10. Specific activities that exacerbate Ms. Farah's pain inclu de coughing, moving in bed and talking. Ms. Farah is not satisfied with current level of pain. Her pain is improved by not eating, not talking. Associated symptoms include: nausea/vomiting Treatment for Ms. Farah current pain complaint includes the following: Opioids: Hydromorphone IV 2mg/24hrs, oxycodone 20mg/24hrs Other analgesics: Acetaminophen PO 1g/24hrs, toradol 30mg/24hrs Other psychoactive medications: Lamotrigine 200mg TID, lorazepam 1mg/24hrs She feels that the most effective treatments include: medication Past Pain History: History of chronic or preoperative pain: yes: location: left lower extremity. Typical int ensity 6/10 Prior to hospitalization: Opioids: None Other analgesics: ibuprofin 600mg q6hr PRN, intranasal ketamine Other psychoactive medications: memantine 28mg BID, lamictal 200mg TID, lorazepam 2mg List of Medications during this hospitalization: Scheduled Medications Medication Dose Route Frequency Last Rate acetaminophen (TYLENOL) tablet 1,000 mg 1,000 mg oral Q6H heparin injection 5,000 Units 5,000 Units subcutaneous Q8H influenza vaccine (FLUZONE) (PF) IM injection (age 3 years or greater) 0.5 mL 0.5 mL i ntramuscular ONE TIME IN THE MORNING lamoTRIgine (LAMICTAL) tablet 200 mg 200 mg oral TID memantine (NAMENDA) oral dose 27.5 mg 27.5 mg oral BID omeprazole (PRILOSEC) capsule 40 [...] tablet 600 mg 600 mg oral Q6H PRN ondansetron (ZOFRAN) tablet 8 mg 8 mg oral Q8H PRN oxyCODONE (immediate release) (ROXICODONE) tablet 5-15 mg 5-15 mg oral Q4H PRN Continuous Medications Medication Dose Route Frequency Last Rate Allergies Allergen Reactions Morphine Anaphylaxis Review of systems: General: negative Eyes: negative Ears, Nose, Throat: negative Respiratory: pain with deep breathing Musculoskeletal: negative Cardiovascular: negative Gastrointestinal: Per HPI Neurologic: LLE numbness/tingling Skin: negative Psychological: denies depression, good coping mechanism Heme/Lymphatic: negative Endocrine: negative Utility Spray Operator: negative Past Medical History: Past Medical History Diagnosis Date Other chronic pain Reflex sympathetic dystrophy of the lower limb Depression Anxiety Compartment syndrome (HCC) Peroneal nerve injury Neuroma of lower extremity Ankle fracture, left Past Surgical History: Past Surgical History Procedure Laterality Date Tonsillectomy and adenoidectomy Ankle surgery x 9 Fasciotomy Neurectomy foot Nerve block 03/18/11 & 03/25/11 Left lumbar sympathetic ganglion block Hemroidectomy Trial spinal cord stimulator leads 08/02/2012 [facility], Surgeon: Janak Riojas MD Past Family History: Family History Problem Relation Alcohol/Drug Maternal Grandfather Allergies Mother Allergies Father Allergies Brother Allergies Maternal Grandfather Arthritis Maternal Grandmother Arthritis Maternal Grandfather Arthritis Paternal Grandmother Arthritis Paternal Grandfather Asthma Brother Asthma Maternal Grandfather Diabetes Paternal Grandmother Headache Mother Headache Maternal Grandmother Hypertension Mother Hypertension Father Stroke Maternal Grandfather Social History: History Social History Marital Status: Single Spouse Name: N/A Number of Children: N/A Years of Education: N/A Occupational History Not on file. Social History Main Topics Smoking status: Never Smoker Smokeless tobacco: Not on file Alcohol Use: No Drug Use: No Sexual Activity: Not Currently Other Topics Concern Not on file Social History Narrative Single. Goes to [employer] with a light load. Has been working at [employer], can' t work on crutches. Has roommates. Labs: Lab Results Component Value Date WBC 8.22 10/21/2015 HB 13.4 10/21/2015 HCT 40.3 10/21/2015 PLT 250 10/21/2015 MCV 93.7 10/21/2015 RDW 39.2 10/21/2015 Lab Results Component Value Date NA 139 10/21/2015 K 3.8 10/21/2015 CL 106 10/21/2015 BICARB 29 10/21/2015 BUN 4* 10/21/2015 CR 0.84 10/21/2015 GLU 89 10/21/2015 CA 9.0 10/21/2015 AST 25 10/21/2015 ALT 50 10/21/2015 AP 81 10/21/2015 TBILI 0.5 10/21/2015 TP 7.4 10/21/2015 ALB 4.2 10/21/2015 No results found for: APTT Physical Exam: BP 107/52 | Pulse 65 | Temp 36.3 C (97.3 F) | RR 16 | Ht 1.626 m (5' 4") | Wt 74.8 kg ( 164 lb 14.5 oz) | SpO2 98% | BMI 28.29 kg/(m^2) Systolic (24hrs), Av mmHg, Min:107 mmHg, Max:137 mmHg Diastolic (24hrs), Av mmHg, Min:52 mmHg, Max:92 mmHg Pulse Min: 65 Max: 95 Temp Min: 36.3 C (97.3 F) Max: 37 C (98.6 F) Resp Min: 16 Max: 18 SpO2 Min: 98 % Max: 100 % [...] for her which consists of intranasal ketamine, lamotrigine, memantine, and ibuprofen. The a dmitting team is concerned that the current pain control regimen could be contributing to th e patients abdominal complaints - namely her NMDA receptor antagonists. A literature review did not find any convincing evidence to suggest that these symptoms could be related to her use of intranasal ketamine or memantine. Additionally, these symptoms are vague and could be the result of many different things and the onset of the symptoms do not coincide with an i nitiation of this therapy or a change in dosage. Would recommend investigating other routes before discontinuing these medications given the debilitating nature of her CRPS and stable pain control regimen she is on currently. While inpatient we are willing to start a ketamine infusion to allow relief of her abdominal pain without opiods given her current complaints of N/V and opiods potential to exacerbate this, her desire to avoid opiods, and success with ketamine intranasal in the past. Diagnosis: 1. CRPS 2. Acute on chronic N/V with FTT Recommendations: 1. Continue acetaminophen, lamotrogine, memantine 2. Hold [...] intranasal ketamine 6. Will continue to follow Aba Dorman MD, PGY 3 Railway Signal Operator [place]-2 APS Team pager [phone] BILLING INFORMATION Deferred to attending physician. Ms. Farah was evaluated with Alex Sanchez MD, PhD. Associated attestation - Daniel, Alex Alba MD,PhD - 10/22/2015 4:29 PM PSTI saw and evalu ated Ms. Tracie Farah with Resident: Dr. Dorman, who conducted the initial history and physical examination. I personally interviewed the patient and performed the pertinen t parts of the physical examination. I have reviewed the resident s note and I agree with the plan of care as documented. I do not have additional comments. Alex Sanchez MD,PhD documented in this encounter Miscellaneous Notes Handoff - Anjelica Leonard, RN - 10/25/2015 7:21 AM PSTNursing Handoff Report: Primary focus of stay: acute on chronic nausea and vomiting. PMHx: Left Lower extremity fracture as a child s/p multiple surgeries, Complex regional hudson n syndrome, anxiety, depression. Cholecystectomy, appendectomy. Tried spinal cord stimulator and medication pump and they were not effective. -Are admission screen and assessment done?: Yes -Does the patient want to be woken up for BSR? Yes Pertinent physical findings: Neuro: AOx4 GI: Ate 100% Dinner. Constipated- needs to have BMs. Lactulose every 2 hours , continue florina n if have BM/diarrhea. Needs to have about 6 BMs, per CT. : uses hat in bathroom. Activity: SBA, patient ambulates well, reports that some days are better than others. Some dizziness with standing. Orders to follow up on: Bowel movements/bowel medications Last pain assessment/reassessment: Continues to c/o abdominal pain/nausea. 6.5/10 for L rock t, 7/10 for abdominal pain. Psych/social issues: Patient calm and pleasant. Worried about pain being controlled for dis charge. Anticipated or pending procedures: DC 10/26 if BM's? Care Plan: Patient Stated Goal for Shift: Find out what's causing stomach problems Patient Target: Patient will report pain level at goal using current pain regimen Progress Towards Target: No Change AEB: Pain controled per Pt to a 6/10 after dosing oxycodone and dilaudid. Able to eat break fast and keep it down. Phenergan IV/ PO zofran used to help with nausea. Evaluation: Interventions that worked/didn't work:Ambulates well to bathroom.Pt stated helped. Patient is constipated, has not had BM yet this shift. Offered walks in [place], but patient declined, as foot was too painful at due to recently showering. My recommendations forward:continue to monitor patient for changes in pain/condition. DO NO T touch Left foot, as it is very painful for patient. -Continue to check with patient on whether she wants her Lamictal and Nameda, she has state d that she would prefer to just start these after her discharge. They are being used to ishmael ge her pain. -Monitor for bowel movements- Patient is constipated and needs to have bowel movements. Do not hold bowel care meds even if patient c/o diarrhea, CT showed patient has about 6 bowel m ovement worth of stool in her. Encourage activity, walks in halls. Patient Stability:Moderately StableElectronically signed by Anjelica Leonard RN at 5 7:21 AM PSTHandoff - Kelsey Todd RN - 10/24/2015 6:08 PM PSTNursing Handoff Report: Primary focus of stay: acute on chronic nausea and vomiting. PMHx: Left Lower extremity fracture as a child s/p multiple surgeries, Complex regional hudson n syndrome, anxiety, depression. Cholecystectomy, appendectomy. Tried spinal cord stimulator and medication pump and they were not effective. -Are admission screen and assessment done?: Yes -Does the patient want to be woken up for BSR? Yes Pertinent physical findings: Neuro: AOx4 GI: Ate 100% Breakfast. No lunch. Continues to c/o abdominal pain/nausea. Constipated- need s to have BMs. Lactulose every 2 hours , continue even if have BM/diarrhea. Needs to have a bout 6 BMs. : uses hat in bathroom. Activity: SBA, patient ambulates well, reports that some days are better than others. Some dizziness with standing. Orders to follow up on: Last pain assessment/reassessment: c/o pain rating 6.5/10 for L foot, 7/10 for abdominal p ain. Received oxy at 1743. Psych/social issues: Patient calm and pleasant. Worried about pain being controlled for dis charge. Anticipated or pending procedures: Bowel movements/bowel medications. Plan is for Discharge tomorrow needs to have bowel movements before. Care Plan: Patient Stated Goal for Shift: Find out what's causing stomach problems Problem: pain Goal: Patient will report pain level at goal using current pain regimen Interventions: Have patient state pain goal. Pain assessment at least every 4 hours and assess effectiven ess of intervention. Assess which non-pharmacologic interventions provide comfort and encourage patient to use ( heat, ice, shower, ambulation, distraction). Assess if pain interferes with sleep as sleep deprivation increases pain sensitivity Position for comfort, adjust room temperature Assess effectiveness of pain medication Evaluation: Interventions that worked/didn't work:Ambulates well to bathroom. Pain controled per Pt to a 6/10 after dosing oxycodone and dilaudid. Able to eat breakfast and keep it down. Phenerga n IV/ PO zofran used to help with nausea. Pt stated helped. Patient is constipated, has not had BM yet this shift. Offered walks in [place], but patient declined, as foot was too painful at due to recently showering. My recommendations forward:continue to monitor patient for changes in pain/condition. DO NO T touch Left foot, as it is very painful for patient. -Continue to check with patient on whether she wants her Lamictal and Nameda, she has state d that she would prefer to just start these after her discharge. They are being used to ishmael ge her pain. -Monitor for bowel movements- Patient is constipated and needs to have bowel movements. Do not hold bowel care meds even if patient c/o diarrhea, CT showed patient has about 6 bowel movement worth of stool in her. Encourage activity, walks in halls. Patient Stability:Moderately Stable lan of Care - Saroj Camilo - 10/24/2015 3:10 PM PSTProblem: Case Management Goals Goal: Discharge Needs Met Multidisciplinary Rounds: Discharge Friday 10/26. Other than transport, no need for dischar ge planning assistance from [facility] Nurse Engraver Lettering identified at this time. Please see oth er disciplines' progress notes for their discharge recommendations. Weekend CM will continue to follow. andoff - Arben Canchola RN - 10/24/2015 6:32 AM PSTNursing Handoff Report: Primary focus of stay: acute on chronic nausea and vomiting. PMHx: Left Lower extremity fracture as a child s/p multiple surgeries, Complex regional hudson n syndrome, anxiety, depression. -Are admission screen and assessment done?: Yes -Does the patient want to be woken up for BSR? Yes Pertinent physical findings: Neuro: AOx4, becomes anxious thinking about pain in LLE, states very sleepy. GI: Poor PO, mild nausea, promethazine used to good effect. : uses hat in bathroom, good output. Pain: IV dilaudid and PO oxycodone keeping pain at 6-7. Activity: SBA, patient ambulates well to and from bathroom, reports that some days are bett er than others. Orders to follow up on: Pain management Last pain assessment/reassessment: 05/23 in LLE and epigastric region, sleeping NAD Psych/social issues: Patient appears anxious, states pain is all consuming. Anticipated or pending procedures: Care Plan: Patient Stated Goal for Shift: Pain management Problem Acute on Chronic Pain Goals: Comfort: Patient will report adequate pain relief aeb absence of pain or patient report of pain level 6 or less. Interventions: Assess pain, offer pain medications prn, alternative therapies, evaluate efficacy of pain m edications. Evaluation: Interventions that worked/didn't work:Patient appeared NAD, noted sleeping after dilaudid, oxycodone. Ambulates well to bathroom My recommendations forward:continue to monitor patient for changes in pain/condition. Matteo nue to offer pain management as tolerated. Patient Stability:Moderately Stable andoff - Kelsey Todd RN - 10/23/2015 7:20 PM PSTNursing Handoff Report: Primary focus of stay: acute on chronic nausea and vomiting. PMHx: Left Lower extremity fracture as a child s/p multiple surgeries, Complex regional hudson n syndrome, anxiety, depression. Cholecystectomy, appendectomy. Tried spinal cord stimulator and medication pump and they were not effective. -Are admission screen and assessment done?: Yes -Does the patient want to be woken up for BSR? Yes Pertinent physical findings: Neuro: AOx4 GI: Poor PO, Diarrhea this shift, Nausea throughout shift. : uses hat in bathroom. Activity: SBA, patient ambulates well, reports that some days are better than others. Some dizziness with standing. Skin: Stated clear discharge from breast. Orders to follow up on: Last pain assessment/reassessment:Shift change: -06/23 in LLE and epigastric region. Oxycod one and IV dilaudid given earlier in shift, Psych/social issues: Patient calm and pleasant. Focused on addressing her nausea, vomiting and abdominal pain. States she is not concerned about having her ankle pain addressed right now. Anxious today, worried about possible . Anxiety decreased with negative result s. (Mom is not to have info regarding test). Anticipated or pending procedures: GI consult. Work up continues. CT scan performed today. Care Plan: Patient Stated Goal for Shift: Find out what's causing stomach problems Problem: pain Goal: Patient will report pain level at goal using current pain regimen Interventions: Have patient state pain goal. Pain assessment at least every 4 hours and assess effectiven ess of intervention. Assess which non-pharmacologic interventions provide comfort and encourage patient to use ( heat, ice, shower, ambulation, distraction). Assess if pain interferes with sleep as sleep deprivation increases pain sensitivity Position for comfort, adjust room temperature Assess effectiveness of pain medication Evaluation: Interventions that worked/didn't work:Ambulates well to bathroom. Pain controled per Pt to a 6/10 after dosing oxycodone and dilaudid. Able to eat breakfast and keep it down. Phenerga n IV/ zofran used to help with nausea. Pt stated helped. My recommendations forward:continue to monitor patient for changes in pain/condition. Continue to check with patient on whether she wants her Lamictal and Nameda, she has stated that she would prefer to just start these after her discharge. They are being used to manag e her pain. Reinforce bland foods until patient able to increase PO intake. Patient Stability:Moderately Stable lan of Care - Charline Navarro RD - 10/23/2015 3:08 PM PSTProblem: Nutrition Interventions Intervention: Food and nutrient distribution type or amount REC: - Continue regular diet as tolerated. - Encouraged small frequent meals with low fat, low fiber, bland foods. - Offer Ensure Clear if poor po intake. Pt declined today. - Anti-emetics. Provide 30 min prior to meals to facilitate po intake. - Monitor lytes and replete prn. - Pt aware of [employer] and [employer] Instant Breakfast available via room service. Enco uraged to order if po intake does not continue to improve. Following, Charline Navarro, MPH, RD, LD Pager: [phone] Comments: Nutrition Diagnosis: inadequate oral intake related to N/V as evidenced by pt report. Admitting Dx: Tracie Farah is a 25 y.o. female PMH of complex regional pain syndro me LLE and prior cholecystectomy who presents from OSH with acute on chronic epigastric pain , nausea, and vomiting of unclear etiology, with EGD negative and gastric emptying study onl y mildly delayed. Diet Order: regular PO Intake: 10% x1 (10/22); pt reports tolerating egg sandwich and yogurt parfait this AM Meds include: lactulose, zofran, promethazine, miralax, senokot-s, sucralfate, namenda Labs: BUN 4 BM: x2 watery UOP: 2050 ml Ht: 64 in Admit Wt: 74.8 kg BMI 28.3, UBW: stable wt per pt Wt hx per chart review: 81.6 kg (08/2012) Estimated Nutrition Needs: 3912-4831 kcals (25-30 kcal/kg), 75-112 gm protein (1-1.5 gm/kg) andoff - Remy Canchola RN - 10/23/2015 5:56 AM PSTNursing Handoff Report: Primary focus of stay: acute on chronic nausea and vomiting. PMHx: Left Lower extremity fracture as a child s/p multiple surgeries, Complex regional hudson n syndrome, anxiety, depression. -Are admission screen and assessment done?: Yes -Does the patient want to be woken up for BSR? Yes Pertinent physical findings: Neuro: AOx4, becomes anxious thinking about pain in LLE, no sedation noted. GI: Poor PO, had 2 loose/liquid bm this shift 2/2 lactulose, nauseas, no vomiting. : uses hat in bathroom Pain: Ketamine drip during day shift not effective, transitioned back to IV dilaudid and PO oxycodone with better effect. Activity: SBA, patient ambulates well to and from bathroom, reports that some days are bett er than others. Orders to follow up on: Pain management Last pain assessment/reassessment: 05/23 in LLE and epigastric region, sleeping NAD Psych/social issues: Patient appears anxious, states pain is all consuming. Anticipated or pending procedures: Care Plan: Patient Stated Goal for Shift: Pain management Problem Acute on Chronic Pain Goals: Comfort: Patient will report adequate pain relief aeb absence of pain or patient report of pain level 6 or less. Interventions: Assess pain, offer pain medications prn, alternative therapies, evaluate efficacy of pain m edications. Evaluation: Interventions that worked/didn't work:Patient appeared NAD, noted sleeping after dilaudid, oxycodone. Ambulates well to bathroom My recommendations forward:continue to monitor patient for changes in pain/condition. Matteo nue to offer pain management as tolerated. Patient Stability:Moderately Stable andoff - Apple Colbert RN - 10/22/2015 2:56 PM PSTNursing Handoff Report: Primary focus of stay: acute on chronic nausea and vomiting. PMHx: Left Lower extremity fracture as a child s/p multiple surgeries, Complex regional hudson n syndrome, anxiety, depression. Cholecystectomy, appendectomy. Tried spinal cord stimulator and medication pump and they were not effective. -Are admission screen and assessment done?: Yes -Does the patient want to be woken up for BSR? Yes Pertinent physical findings: Neuro: AOx4 GI: Poor PO, LBM 1 week ago, report of Nausea and vomiting at OSH, no N/V reported/observed : uses hat in bathroom Activity: SBA, patient ambulates well, reports that some days are better than others. Orders to follow up on: With Ketamine need respiratory rate, pain, sedation scale, and base line neuro assessment q 1hr x 4 hrs, then q 2 hrs x 4 hrs, then q 4 hrs. Use 0-10 pain scale at rest and with activity. Temperature, BP, and Heart Rate q 4 hrs. Last pain assessment/reassessment:Shift change: -06/23 in LLE and epigastric region. Oxycod one and IV dilaudid given earlier in shift, these were DC'd in afternoon when Ketamine was s tarted.Titrating up on the Ketamine for better pain control. Psych/social issues: Patient calm and pleasant. Focused on addressing her nausea, vomiting and abdominal pain. States she is not concerned about having her ankle pain addressed right now. Anticipated or pending procedures: GI consult. Work up continues. Care Plan: Patient Stated Goal for Shift: Find out what's causing stomach problems Problem: pain Goal: Patient will report pain level at goal using current pain regimen Interventions: Have patient state pain goal. Pain assessment at least every 4 hours and assess effectiven ess of intervention. Assess which non-pharmacologic interventions provide comfort and encourage patient to use ( heat, ice, shower, ambulation, distraction). Assess if pain interferes with sleep as sleep deprivation increases pain sensitivity Position for comfort, adjust room temperature Assess effectiveness of pain medication Evaluation: Interventions that worked/didn't work:Ambulates well to bathroom. Pain controled per Pt to a 6/10 after dosing oxycodone X2 and IV dilaudid this AM. IV bolus for dehydration given in AM. Mchenry well enough to try eating in afternoon. Tried hot packs but these didn't help. My recommendations forward:continue to monitor patient for changes in pain/condition.If sig nificant Ketamine side effects are suspected (respiratory depression, significant sedation, hallucinations, bad dreams): Turn off infusion and notify MD. Continue to check with patient on whether she wants her Lamictal and Nameda, she has stated that she would prefer to just start these after her discharge. They are being used to manag e her pain. Patient Stability:Moderately Stable Elsy MangoBeatriz RN - 10/22/2015 6:02 AM PSTNursing Handoff Report: Primary focus of stay: acute on chronic nausea and vomiting. PMHx: Left Lower extremity fracture as a child s/p multiple surgeries, Complex regional hudson n syndrome, anxiety, depression. -Are admission screen and assessment done?: Yes -Does the patient want to be woken up for BSR? Yes Pertinent physical findings: Neuro: AOx4, becomes anxious thinking about pain in LLE, ativan used to good effect GI: Poor PO, LBM 1 week ago, report of Nausea and vomiting at OSH, no N/V reported/observed : uses hat in bathroom Activity: SBA, patient ambulates well, reports that some days are better than others. Orders to follow up on: Pain management, follow up on whether patient will be allowed use o f inhaled ketamine, sent to pharmacy. Last pain assessment/reassessment: 05/23 in LLE and epigastric region, absence of pain , sle eping NAD Psych/social issues: Patient appears anxious, states pain is all consuming. Anticipated or pending procedures: Care Plan: Patient Stated Goal for Shift: Pain management Problem Acute on Chronic Pain Goals: Comfort: Patient will report adequate pain relief aeb absence of pain or patient report of pain level 6 or less. Interventions: Assess pain, offer pain medications prn, alternative therapies, evaluate efficacy of pain m edications. Evaluation: Interventions that worked/didn't work:Patient appeared NAD, noted sleeping after dose of to radol and ativan. Ambulates well to bathroom My recommendations forward:continue to monitor patient for changes in pain/condition. Matteo nue to offer pain management as tolerated. Patient Stability:Moderately Stable [facility] Megan - Isadora French - 10/21/2015 2:12 PM PSTConne[address] ref to Dr Jama (IM) and Dr Beltre( GI) 25yof - case reviewed Dr Pereyra states there is not anything that could be offered other then possibly stoppin g medications, pain service may be able to consult on arrival, requests that ref advises pt of limited treatment options Accepting to adult [facility] - no special needs, ref plans to send by FW Advised bed managers rans pop Note - Tala Jama MD - 10/21/2015 2:10 PM PSTInternal Medicine Faculty Brief Transfer Accept Note Referring [facility] Lugo Accepting ([facility] consultants involved in discussion) Patt, GI procedure Reason for transfer acute on chronic nausea/vomiting History 25 yo woman with hx of LE fracture in childhood s/p multiple surgeries--> CRPS (fol lowed by a neurologist) on lamotrigene, inhaled ketamine, dextromethorphan, namenda. Not on narcotics x 2 yrs. N/V x 6 months. Intractable nausea/vomiting x 3-4 days with abdominal pain prompting admiss ion. EGD showed gastritis in the cardia (due to vomiting), otherwise unremarkable.Biopsies p ending. Gastric emptying showing mild delay, unremarkable UGI series 2009 - severe gastroesph reflux Yesterday unable to take any po, constant nausea/vomiting. Got 1mg IV dilaudid; pain improv ed from 9-->7. Vital signs AF, 84, 16, 113/63, 96% RA Known active problems at time of transfer 1. Acute on chronic nausea/vomiting 2. Abd pain of unclear significance 3. CRPS - she is followed by [facility] Pain Clinic - this is the main reason I accepted the rider sfer. She is followed by Dr. Block and if polypharmacy is contributing to her presentation, would be watkins to have Pain service involved. GM teams notified. Tala Jama MD [facility] Division of Hospital Medicine om Center - De eks, Patience - 10/21/2015 1:57 PM PSTConnected ref to Dr Beltre (GI) 25yof hx L lower extrimity pain - issue from ankle injury at age of 12, followed by neurolo gy in [place], in last 6 months has had abd pain with nausea and vomiting, last week symp toms became persistent, admitted for upper endoscopy - showed one area of inflamation, after dilaudid pain went from 8/10 to 5/10 - pt normally adamantly refuses narcotics, no CT scan completed with this admit - most recent is from 06/2015, unable to keep any food down for pa st 4 days Ref has been in touch with pt's neurologist in [place] ([facility]) Dr Beltre recommending IM as possible accepting service - Paged Dr Jama (IM) omm [facility] Lily French - 10/21/2015 1:[address] Beltre (GI) documented in this encounter Plan of Treatment [...] | | | LABORATORY | | | CAMEROONIAN | | | SERVICES, | | | [...] the MDRD equation recommended by the | COSU | | National Kidney Disease Education Program. Estimated GFR | LABORATORY | | Interpretive Information: <60 mL/min/1.73 sq m | [place], CORE | | Chronic Kidney Disease <15 [...] CENTER LABORATORY | [address] | [place] [address] | | | [place], [place] | GUILLERMO [...] / | | | | | | CHALINO WINTER | | | | | | 10/24/2015 [...] | | LABORATORY | | | SERVICES, CORE | + + + + + + + + | Performing | Address | City/State/Zipcode | Phone Number | | Organization | | | | + + + + + | [facility] | [address] | [place] [address] | | | SERVICES, CORE | PARK [...] | | | LABORATORY | | | CAMEROONIAN | | | SERVICES, | | | [...] + + | [facility] bitmovin | [address] | [place] [address] | | | SERVICES, CORE | GUILLERMO [...] [facility] | [address] | [place] [address] | | | SERVICES, CORE | PARK [...] KEVIN SHAH | [address] | [place] [address] | | | SERVICES, CORE | PARK [...] mech. valves (2.5 - 3.5) INR | [place], CORE | + + + + + + + + | Performing | Address | City/State/Zipcode | Phone Number | | Organization | | | | + + + + + | [facility] | [address] | [place] [address] | | | [place], [place] | GUILLERMO [...] [facility] | [address] | [place] [address] | | | SERVICES, CORE | GUILLERMO [...] | | | LABORATORY | | | CAMEROONIAN | | | SERVICES, | | | [...] the MDRD equation recommended by the | COSU | | National Kidney Disease Education Program. Estimated GFR | LABORATORY | | Interpretive Information: <60 mL/min/1.73 sq m | [place] | | Chronic Kidney Disease <15 mL/min/1.73 [...] | [facility] | [address] | [place] [address] | | | [place] | GUILLERMO [...] unspecified constipation type | + + | Somatoform autonomic dysfunction [...] | | 8 HOURS, First dose on Tue | | AM [...] | | | | | 1 dose, [facility] 10/23/15 at 1245 | | PM PST | | | | + +-------+ +-------+---+---+ +---+---+ | | | +---+---+ + +-------+ +--------+---+---+ | ibuprofen (MOTRIN) tablet 600 | Given | 10/25/20 | 600 mg | | | | mg 600 mg, oral, EVERY 6 HOURS, | | 15 8:05 | | | | | First dose on Tue10/23/15 at | | AM PST | | [...] | NEEDED, Starting Tue10/21/15 at | | AM PST | | [...] | | | | | NEEDED, Starting [facility] 10/23/15 at | | | | [...]
--- OUTSIDE RECORDS SUMMARY | ~2020-08-23 | XMS | Encounter Summary ---
Demographics + + + | Address | [address] | | | [place] [address] | + + + | Home Phone [...] Team Providers + +------+ + | Care Us Marketing Director Name | Role | Phone [...] ogy | | Ava Torres, | [address] | | | | | Constipation | [address] | [place] | | | | | , | [address] | [place] for | | | | | unspecified | [address] | Health and | | | | | constipation | [facility] [place] | Healing, | | | | | type | [address] | [address] | | | | | Procedures | | [place], [place] | | | | | CONSULT TO | | [address] | | | | | GI PROCEDURE | | Phone: | | | | | UNIT: | | [phone] | | | | | ANORECTAL | | Fax: | | | | | MANOMETRY | | [phone] | | | | | ID ANAL | | | | | | | PRESSURE | | | | | | | RECORD | | | +--------+--------+ + + + + Encounter Details +--------+ + + + + | Date | Type | Department | Care Team | Description | +--------+ + + + + | 09/14/ | Hospital | [facility] | Nurse, Gip [address] | | | 2016 | Encounter | [facility] [address] [facility] | | | | | [facility] for | Road [place], [place] | | | | | Health and Healing, | [address] | | | | | [address] | | | | | | [place], [place] | | | | | | [address] | | | | | | [phone] | | | +--------+ + + + [...]
--- OUTSIDE RECORDS SUMMARY | ~2020-08-23 | XMS | Encounter Summary ---
Demographics + + + | Address | [address] | | | [place] [address] | + + + | Home Phone [...] Team Providers + +------+ + | Care Back Up Worker Name | Role | Phone | + +------+ + | Justo Vazquez MD | PCP | | + +------+ + Reason for Visit +--------+--------+ + | Reason | Onset | Comments | | | Date | | +--------+--------+ + | Other | 12/09/ | Fax info | | | 2016 | | +--------+--------+ + Encounter Details +--------+ + + + + | Date | Type | Department | Care Team | Description | +--------+ + + + + | 12/09/ | Telephone | Digestive Health | Ava Carbajal | Other (Fax info ) | | 2017 | | Center at [facility] [address] | MD Melissa | | | | | [address] [facility] | | | | | | for Health and | | | | | | [facility] [address] | | | | | | [place], [place] | | | | | | [address] | | | | | | [phone] | | | +--------+ + + + [...] Telephone Encounter - Isadora Eller MA - 12/20/2016 4:31 PM PSTOrders sent to [phone]. elephone Encounter - Cynthia Pizano - 12/20/2016 2:[address] [place] - [phone] tong signed by Cynthia Pizano at 12/20/2016 2:26 PM PSTTelephone Encounter - Floyd Bruno - 12/20/2016 2:[address] [facility] in [place] told the patient that they do not chowdhury ve the orders for her x-ray. Please resend. Patient did not have fax number. Patient will call back to give correct fax number. elephone Encounter - Tala Burns RN - 12/09/2016 3:13 PM PSTMyChart message sent ----- Message ----- From: Ava Carbajal MD Sent: 12/08/2016 7:20 PM To: Isadora Eller MA, Carroll Parekh, RN Thanks Carroll. Carlos Muir Do you mind touching base with her ? I think it would be best for her to do sitz maker rigo t after she does colonoscopy. That way she is cleaned out already. We also recommended she s top reglan at her last visit because of dangerous jail side effects. I would just remin d her that we do not recommend this medication and would rec she stop it. Robin Armijo signed by Tala Burns, RN at 12/09/2016 3:22 PM PSTdocumented in this encounter Plan of Treatment Not on filedocumented as of this encounter Visit Diagnoses Not on filedocumented in this encounter"
--- OUTSIDE RECORDS SUMMARY | ~2020-08-23 | XMS | Encounter Summary ---
Demographics + + + | Address | [address] | | | [place] [address] | + + + | Home Phone [...] Providers + +------+ + | Care Director [employer] Name | Role | Phone | + +------+ + | Justo Vazquez MD | PCP | | + +------+ + Encounter Details +--------+ + + + + | Date | Type | Department | Care Team | Description | +--------+ + + + + | 03/11/ | Telephone | [facility] | Zeeshan Mahoney MD | | | 2019 | | Pain Center at | [address] | | | | | [facility] | [facility], | | | | | [address] | [place] [address] | | | | | [place] for [facility] | [phone] | | | | | and Healing, | | | | | | | | | | | | [place], [place] | | | | | | [address] | | | | | | [phone] | | | +--------+ + + + [...] this encounter Miscellaneous Notes Telephone Encounter - Zeeshan Mahoney MD - 03/11/2019 4:59 PM PDTPatient called in requesti ng opioids for a pain flare. Per patient, she had not required them recently, but had been m ore active lately and thus was having a pain flare. She stated that she normally got her hudson n medications from Dr. Sanchez. I advised her that I would investigate into it and could richard l her back. She informed me over the phone that I could leave a detailed message if she did not answer. On chart review, opioid contract was unable to be found and patient's most recent prescript ion was denied, with reasoning being that prior prescriptions were for post procedural pain. Review of PDMP showed prescriptions during her post operative period from our clinic and mo st recently a prescription from [facility] Quach on 01/29/2019 for 48 tablets of Wakeman 10-325. At this time, it is not clear that we are the primary prescribers of her pain medications. I reached out to the patient to inform her that we could not provide her with additional med ication at this time and left a voicemail. She was advised that she could go to the emergenc y room or call back in the morning at our clinic here to try to schedule an expedited appoin tment with her primary pain providers. -- Zeeshan Mahoney MD - PGY5 Pain Medicine Fellow [id number] documented in this enco unter Plan of Treatment Not on filedocumented as of this encounter Visit Diagnoses Not on filedocumented in this encounter"
--- OUTSIDE RECORDS SUMMARY | ~2020-08-23 | XMS | Encounter Summary ---
Demographics + + + | Address | [address] | | | [place] [address] | + + + | Home Phone [...] Providers + +------+ + | Care Placement Secretary Name | Role | Phone | + +------+ + | Justo Vazquez MD | PCP | | + +------+ + Encounter Details +--------+ + + + + | Date | Type | Department | Care Team | Description | +--------+ + + + + | 07/30/ | Telephone | [facility] | Alex Sanchez, | | | 2019 | | Pain Center at | ,PhD [address] | | | | | [facility][Note 3] | [address] | | | | | [address] | [place], [place] | | | | | [place] for [facility] | [address] | | | | | and Healing, | [phone] | | | | | | | | | | | Floor [place], [place] | | | | | | [address] | | | | | | [phone] | | | +--------+ + + + [...] Telephone Encounter - Cristela Rg MA - 07/31/2019 1:42 PM PDTRouted to provider to karen sanchez. elephone Encoun Randell Hernandez - 07/31/2019 1:16 PM PDTDes[facility] called to set up a time for Parth Azul to discuss the patients needs with Dr. Sanchez. The information receptionist said they will richard l back on Monday 08/06 to get a hold of Dr. Sanchez. elephone Encounter - Vanessa Edmondson - 07/30/2019 11:21 AM PDTPatient i s calling because Dr Lugo office told her to call us to let us know that she would like to have the [facility] set up a time for Dr. Azul the orthopedic surgeon to talk to Dr. Sanchez about patient medications. Their office number is [id number] signed by Vanessa knutson 07/30/2019 11:22 AM PDTdocumented in this encounter Plan of Treatment Not on filedocumented as of this encounter Visit Diagnoses Not on filedocumented in this encounter"
--- OUTSIDE RECORDS SUMMARY | ~2020-08-23 | XMS | Encounter Summary ---
Demographics + + + | Address | [address] | | | [place] [address] | + + + | Home Phone [...] Providers + +------+ + | Care Automobile Mechanic Motor Name | Role | Phone | + +------+ + | Justo Vazquez MD | PCP | | + +------+ + Reason for Visit + +--------+ + | Reason | Onset | Comments | | | Date | | + +--------+ + | Dermatitis | 10/06/ | | | | 2018 | | [...] [address] | | | | | [facility] | [address] [place], | | | | | [address] | [place] [address] | | | | | [facility] | [phone] | | | | | and Healing, | | | | | | Building , | | | | | | [place], [place] | | | | | | [address] | | | | | | [phone] | | | +--------+ + + + [...] Telephone Encounter - Yosef Kenney MD - 10/06/2018 9:23 PM Shona is s/p left L4 and L5 DRG trial on 09/25/[address] Sanchez. She has an appointment Tuesday for removal of her tr ial leads. Tracie is calling because she has developed irritation and pruritis of her skin un derneath the occlusive dressing. The area is very red, itchy, and draining some clear fluid. The area of irritation and redness is localized to under her dressing only, without extensi on beyond. She has no fevers or chills, palpitations, cold/clammy sensation, no change in we akness or sensation of her lower extremities, and she denies loss of bowel or bladder functi on or groin numbness. Tracie endorses some mild irritation with adhesive tape on the skin in the past. It sounds like Tracie is having contact dermatitis related to either the dressing, the steri le prep used for cleaning her back, or maybe both. She denies any systemic symptoms and the irritation is only under the dressing. I reassured her that it likely is due to the dressing and does not sound like an infection at this time. If her symptoms change, she will give us a call or go to the nearest emergency department to be evaluated. Otherwise, we will see he r for removal of her trial device on Tuesday. Yosef Kenney III, MD (Joe) Multidisciplinary Pain Fellow Department of Anesthesiology and Perioperative Medicine Pgr [id number] documented in this encou nter Plan of Treatment Not on filedocumented as of this encounter Visit Diagnoses Not on filedocumented in this encounter"
--- OUTSIDE RECORDS SUMMARY | ~2020-08-23 | XMS | Encounter Summary ---
Demographics + + + | Address | [address] | | | [place] [address] | + + + | Home Phone [...] Providers + +------+ + | Care Radio Equipment Repairer Name | Role | Phone [...] | | | sympathetic | [place] | [address]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 | FAMILY | [employer] | | | | | of lower | MEDICINE P | [id number] | | | | | limb | [address] | [place], [place] | | | | | | [place], | [address] | | | | | | [place] [address] | Phone: | | | | | | Phone: | [phone] | | | | | | [phone] | Fax: | | | | | | Fax: | [phone] | | | | | | [phone] | | +--------+--------+ + + + + Encounter Details +--------+---------+ + + + | Date | Type | Department | Care Team | Description | +--------+---------+ + + + | 08/04/ | Office | [facility] | Dale Cantu, | CRPS (complex | | 2011 | Visit | Pain Center at | MD [address] [facility] | regional pain | | | | [facility] | [facility] [address] | syndrome), lower | | | | [address] | [place], [place] | limb (Primary Dx) | | | | [facility] | [address] | | | | | and Healing, | [phone] | | | | | Building | | | | | | Floor [place], [place] | | | | | | [address] | | | | | | [phone] | | | +--------+---------+ + + + [...] evaluated the patient with Fellow Nhan Guo [facility], who conducted the initial history. I reviewed the history in det ail and edited his note. I was present for the examination and formulation portions of the encounter. I agree with the findings and the plan of care as documented in our notes. DALE CANTU MD Education Department Registrar, [facility] Motor Vehicles Inspector, Pain Medicine Professor, Anesthesiology & Perioperative Medicine Charline Choe MA - 08/04/2012 1:53 PM PDTCMA History: [...] of physical activity and social withdrawal enok Gutierrez [facility] - 08/04/2012 7:25 AM PDTFormatting of this note might be different from the [facility] Return Visit with Dr. [...] has been treated at the [facility] for lower limb pain with [...] and a pain drawing which I reviewed. [facility] Brief Pain Inventory: (ten= worst possible pain or complete interference) Right Now: 8 (08/04/121352) Least in 24 hours: 7 (08/04/121352) Worst in 24 hours: 9 (08/04/121352) Average: 8 (08/04/121352) % Relief (med/treat): 30 (08/04/121352) General Activity: 10 (08/04/121352) Mood: 6 (08/04/121352) Walking Ability: 5 (08/04/121352) Normal Work: 7 (08/04/121352) Relations with Others: 6 (08/04/121352) Enjoyment of Life: 10 (08/04/121352) Sexual Activity: 0 (08/04/121352) Sleep: 7 (08/04/121352) The pain is located in the left [...] The Review of Systems obtained by the [facility] was reviewed. Additional Review of [...] multiple programs with both [facility] and [employer] [facility] programs, however it appears that it does [...] bath today, OK to shower. HENOK GUO, [facility] documented in this en counter Miscellaneous Notes Scan - Other, Faculty - 08/11/2012 11:46 AM PDTElectronically signed by Faculty Other at 11:46 AM PDTScan - Other, Faculty - 08/10/2012 9:11 AM PDT documented in this encounter Plan of Treatment Not on filedocumented as of this encounter Visit Diagnoses + + | Diagnosis | + + | CRPS (complex regional pain syndrome), lower limb - Primary Causalgia of lower limb | + + documented in this encounter
--- OUTSIDE RECORDS SUMMARY | ~2020-08-23 | XMS | Encounter Summary ---
Demographics + + + | Address | [address] | | | [place] [address] | + + + | Home Phone [...] Team Providers + +------+ + | Care Tractor Driver Teamster Name | Role | Phone | + +------+ + | Allegra Chaudhary | PCP | | + +------+ + Encounter Details +--------+ + + + + | Date | Type | Department | Care Team | Description | +--------+ + + + + | 01/17/ | Document-Sc | UNKNOWN DEPARTMENT | Unknown . | | | 2013 | anned | [address] | | | | | | [address] | | | | | | [place], [place] | | | | | | [address] | | | +--------+ + + + [...]
--- OUTSIDE RECORDS SUMMARY | ~2020-08-23 | XMS | Encounter Summary ---
Demographics + + + | Address | [address] | | | [place] [address] | + + + | Home Phone [...] Team Providers + +------+ + | Care Creative Services Coordinator Name | Role | Phone [...] | | | | regional | ,PhD [address]76 | | | | | | pain | [address] | | | | | | syndrome | [address] | | | | | | type [address] of | [address] | | | | | | left lower | [place], [place] | | | | | | extremity | [address] | | | | | | Procedures | Phone: | | | | | | CONSULT TO | [phone] | | | | | | ORTHOPEDICS | Fax: | | | | | | AND | [phone] | | | | | | REHABILITATI | | | | | | | ON | | | +--------+--------+ + + + + Encounter Details +--------+ + + + + | Date | Type | Department | Care Team | Description | +--------+ + + + + | 06/08/ | Director Web | [facility] | Alex Sanchez, | Complex regional | | 2019 | | Pain Center at | ,PhD [address] [facility] | pain syndrome type 1 | | | | [facility] | [address] | of left lower | | | | [address] | [place], [place] | extremity (Primary | | | | Center [facility] | [address] | Dx) | | | | and Healing, | [phone] | | | | | | | | | | | Floor [place], [place] | | | | | | [address] | | | | | | [phone] | | | +--------+ + + + [...] Telephone Encounter - Alex Sanchez MD,PhD - 06/08/2019 2:15 PM PDTcons documented in this encounter Plan of Treatment Not on filedocumented as of this encounter Visit Diagnoses + + | Diagnosis | + + | Complex regional pain syndrome type 1 of left lower extremity - Primary | + + documented in this encounter"
--- OUTSIDE RECORDS SUMMARY | ~2020-08-23 | XMS | Encounter Summary ---
Demographics + + + | Address | [address] | | | [place] [address] | + + + | Home Phone [...] Providers + +------+ + | Care Research Technician Name | Role | Phone | + +------+ + | Justo Vazquez MD | PCP | | + +------+ + Encounter Details +--------+ + + + + | Date | Type | Department | Care Team | Description | +--------+ + + + + | 03/12/ | Site Director | [facility] | Alex Sanchez, | Complex regional | | 2019 | | Pain Center at | ,PhD [address] [facility] | pain syndrome type 1 | | | | [facility] | [address] | of left lower | | | | [address] | [place], [place] | extremity; S/P | | | | Center [facility] | [address] | insertion of spinal | | | | and Healing, | [phone] | cord stimulator | | | | | | | | | | Floor [place], [place] | | | | | | [address] | | | | | | [phone] | | | +--------+ + + + [...] Telephone Encounter - Alex Sanchez MD,PhD - 03/12/2019 11:39 AM PDTPatient reports a bout of CRPS-like pain due to ambulation. She stopped using ketamine since getting the DRG s timulator due to improvement in her pain, however for the past two days her pain has been si gnificantly worse from being significantly more active. She does not have intranasal ketamin e, which she typically takes for flares. She is considering going to the ER for pain control . The pain is the typical distribution of her CRPS symptoms. She denies signs or symptoms of infection. I will provide Ms. Farah with a modest amount of oxycodone for the flare, and she will o btain a refill of ketamine for future flares. In addition, I will provide her with a short c ourse of promethazine for opioid related nausea. PDMP was checked and was consistent. Electr onically signed by Alex Sanchez MD,PhD at 03/12/2019 11:44 AM PDTdocumented in this enc ounter Plan of Treatment Not on filedocumented as of this encounter Visit Diagnoses + + | Diagnosis | + + | Complex regional pain syndrome type 1 of left lower extremity | + + | S/P insertion of spinal cord stimulator | + + documented in this encounter"
--- OUTSIDE RECORDS SUMMARY | ~2020-08-23 | XMS | Encounter Summary ---
Demographics + + + | Address | [address] | | | [place] [address] | + + + | Home Phone [...] Pharmacy | | | | | | [address] | | | | | | Mailcode: [place] | | | | | | [facility] and | | | | | | Healing, [address] | | | | | | [place], [place] | | | | | | [address] | | | | | | [phone] | | | +--------+ + + + [...]
--- OUTSIDE RECORDS SUMMARY | ~2020-08-23 | XMS | Encounter Summary ---
Demographics + + + | Address | [address] | | | [place] [address] | + + + | Home Phone [...] Team Providers + +------+ + | Care Pinion And Wheel Truer Name | Role | Phone | + +------+ + | Justo Vazquez MD | PCP | | + +------+ + Reason for Visit +--------+--------+ + | Reason | Onset | Comments | | | Date | | +--------+--------+ + | Pain | 04/14/ | | | | 2016 | | +--------+--------+ + Encounter Details +--------+--------+ + + + | Date | Type | Department | Care Team | Description | +--------+--------+ + + + | 04/14/ | Refill | [facility] | Kenny Gaspar MD | Pain | | 2016 | | Center [place] [address] [address] | | | | | | [address] [facility] | | | | | | for Health and | | | | | | Healing, [address] | | | | | | [place], [place] | | | | | | [address] | | | | | | [phone] | | | +--------+--------+ + + + [...] this encounter Miscellaneous Notes Telephone Encounter - Crys Gomez MD - 04/14/2017 2:50 PM PDTI'm okay with giving h er a short course of toradol until she can get to her pain management appointment. I'll sign it if you want to order what she has gotten before. If Kenny asked her to start cymbalta then I would recommend trying that also. [facility]! elephone Encounter - Tala Burns RN - 04/14/2017 9:34 AM PDTSpoke with Tracie about continued pain, currently 04/23. See TE from 03/28/17 for detail s on previous plans and interventions, which will be summarized here. Hx: Abdominal pain, IBS-C. Tracie states she was admitted to her local hospital over the weekend and received IV pain m anagement. She states they did not discharge her with any oral medications. Recent 5 day hospitalization at [facility] for pain control, discharged 03/23/17. Follow up plan included 5 day course of alternating PO toradol or meloxicam, pain management consult as an outpatient (currently scheduled 04/25/17). She is currently out of toradol and does not have further refills. When we spoke last she felt meloxicam was not helpful for her pain. She is currently taking hyoscyamine QID and feels it helps with her pain somewhat. We have previously discussed risk of kidney damage with high dose NSAID's like toradol and meloxicam, and why we had only prescribed a limited amount previously. She states she understands this, but she feels she can "hardly live with the pain" and "I h ave to do something." She is requesting another refill of toradol, as she feels it helps wit h her pain. Had previously been asking her to start Cymbalta, last I spoke to her she hadn't picked it up (I didn't ask her this time about it). Let her know I would share with covering provider and contact her today with recommendation s. She is agreeable to this plan, discussed she would need to return to the ED for severe pa in. elephone Encounter - Cynthia Pizano - 04/14/2017 9:25 AM PDTPatient calling to speak with RN about her gennaro nued pain, wanting to know what the plan for the future is and requesting pain meds again. E lectronically signed by Cynthia Pizano at 04/14/2017 9:26 AM PDTdocumented in this encounte r Plan of Treatment Not on filedocumented as of this encounter Visit Diagnoses + + | Diagnosis | + + | Pain of upper abdomen - Primary Abdominal pain, other specified site | + + documented in this encounter
--- OUTSIDE RECORDS SUMMARY | ~2020-08-23 | XMS | Clinical Summary ---
Demographics + + + | Address | [address] | | | [place] [address] | + + + | Home Phone [...] | Organization | [facility] [...] [place] | | | | | [address] | | + + + + + | Bryant Farah | ECON | Unknown | | + + + + + Care Team Providers + +------+ + | Care Coil Binder Name | Role | Phone | [...] +--------+ +---------+--------+ | MEDICARE | MEDICA | [id number] | 07/15/20 | [phone] | | Medica | | | RE | | 15-Pre | 5 | | re | | | PART A | | sent | | | | | | AND B | | | | | | + +--------+ +--------+ +---------+--------+ | MEDICAID [place] | MEDICA | [id number] | | [phone] | | Medica | [...] | 1990 | [phone] | [place] [address] | | | evita | | | 6 (Home) | | + +--------+ +--------+ + +"
--- OUTSIDE RECORDS SUMMARY | ~2020-08-23 | XMS | Encounter Summary ---
Demographics + + + | Address | [address] | | | [place] [address] | + + + | Home Phone [...] | | | pain, | [address] | ,PhD [address] | | | | | unspecified | [address] | [address] | | | | | location | [place] | [address] | | | | | Procedures | [place] | [facility], | | | | | CONSULT TO | [address] | [place] | | | | | PAIN | | [address] | | | | | MANAGEMENT | | Phone: | | | | | | | [phone] | | | | | | | Fax: | | | | | | | [phone] | +--------+--------+ + + + + Encounter Details +--------+---------+ + + + | Date | Type | Department | Care Team | Description | +--------+---------+ + + + | 04/23/ | Office | Pain Center at [facility] | Alex Sanchez, | Complex regional | | 2019 | Visit | [address] | ,PhD [address] [facility] | pain syndrome type 1 | | | | Center for [facility] | [address] | of left lower | | | | and Healing, | [place], [place] | extremity (Primary | | | | Building | [address] | Dx); Other chronic | | | | Floor [place], [place] | [phone] | pain ; S/P insertion | | | | [address] | | of spinal cord | | | | [phone] | | stimulator | +--------+---------+ + + [...] in this encounter Patient Instructions Patient Instructions Key Sonia - 04/23/2019 1:00 PM PDTPihliply, Thank you for taking the time to [...] the lab on the 1st floor of [facility] to provide a urine sample [...] fox in our notes. Alex Sanchez MD,PhD [facility] HospitalElectronically signed by Alex [...] Lam MD - 9 1:00 PM PDT [facility] Return Visit Date: 04/23/2019 Chief Complaint Patient presents with Pain in left leg from the knee downl Back pain where battery pack is located History of Present Illness: Tracie Farah is a 28 year old female, whose last appoi ntment at the [facility] was December 22, 2018, [...] she would still order one bottle to chowdhuyr ve nearby to use as needed. However, [...] leg pain due to the boone that sh e has in place. She is looking [...] - DRG Spinal cord stimulator trial with [employer] system (09/25/2018) with 30-40% im provement of typical pain with significant improvement in mobility and function - Left popliteal/sciatic nerve injection AND abdominal scar trigger point injection ( 018) - Spinal cord stimulator trial with [employer]. UUCUN system by Janak Riojas MD (08/02/2012) - Left L3 lumbar sympathetic block by Janak Riojas MD (03/01/2012) Opioid Risk Tool (ORT) 04/23/2019 ANNUAL GIVING MANAGER Brief Pain Inventory: (ten= worst possible [...] Hemroidectomy Trial spinal cord stimulator leads 08/02/2012 [facility], Surgeon: Janak Riojas MD Cholecystectomy [...] History Social History Narrative Single. Goes to [employer] with a light load. Has been working at [employer], can' t work on [employer]. Has roommates. Allergies Allergen Reactions Morphine [...] with nausea Abdominal pain Abdominal scar neuroma [facility] CLINICAL PROTOCOL PATIENT (CLNPRO) - Implanted Spinal [...] and summary of old medical records (source: bepretty), as summarized in the body of the [...] SCS trial with the [employer] System on 09/25/2018 which provided her with [...] ago. She has not spoken with the [employer] representatives about this. I encouraged her to [...] Follow-up in 3 months for prescription follow-up Sonia Cortez, am functioning as a scribe for Aleta Rebollar MD at 1:10 PM on 04/23/2019. I have reviewed and verified the above scribed note of my visit with this patient as record ed by Sonia Key. Aleta Rebollar MD [facility] 15TH FLOOR [address] [facility] Mail Code: [address] [place] [address] do cumented in this encounter [...] + + | [facility] | [address] | [place] [address] | | | SERVICES, LILLIAN | GUILLERMO [...]
--- OUTSIDE RECORDS SUMMARY | ~2020-08-23 | XMS | Encounter Summary ---
Demographics + + + | Address | [address] | | | [place] [address] | + + + | Home Phone [...] Providers + +------+ + | Care Pack Master Name | Role | Phone | [...] | Diagnoses | Beulah | Edu Pt Nail Artist | | | | Therapy | CRPS | Janak Martinez MD | [address] | | | | | (complex | [address] | | | | | regional | [address] | Mailcode: | | | | | pain | Mailstop | [facility] | | | | | syndrome), | [address] | for Health | | | | | lower limb | [place], [place] | and Healing, | | | | | Gait | [address] | [address] | | | | | disturbance | Phone: | [place], [place] | | | | | Muscle pain | [phone] | [address] | | | | | Procedures | Fax: | Phone: | | | | | PHYSICAL | [phone] | [phone] | | | | | THERAPY | [...] | [facility] | [place] [address] | syndrome), lower | | | | [address] | [phone] | limb (Primary Dx) | | | | Center for Health | | | | | | and Healing, | | | | | | Building 1, 1st | | | | | | Floor [place], [place] | | | | | | [address] | | | | | | [phone] | | | +--------+---------+ + + + [...] Progress Notes Guillermo Sanon I, PT - 06/09/2012 1:08 PM PDTFormatting of this note might be different f rom the original. [id number] BRODY FARAH Date of : 1990 Start of care: 02/14/2012 Date of onset: 02/14/2012 Referring/Attending Practitioner: Janak Riojas MD . Primary/Referral Diagnosis/ICD-9: 355.71B CRPS (complex regional pain syndrome), lower limb Insurance: Payor: [facility] [employer] [facility] Plan: BCBS OUT OF STATE Product Type: PP O Service period from: 02/14/2012 to: 08/12/2012 Number visits used/authorized: 05/25 [facility] PHYSICAL THERAPY [...] [facility] Out[facility] Services Mailcode: Ch3p [address] [facility], [address] [place] [address] documented in this encounter Plan of Treatment Not on filedocumented as of this encounter Procedures + +--------+ + + + | Procedure Name | Priori | Date/Time | Associated Diagnosis | Comments | | | ty | | | | + +--------+ + + + | [place] MANUAL THER | Routin | 06/09/2012 | CRPS (complex | | | TECH,1+REGIONS,EA 15 | e | 2:46 PM | regional pain | | | MIN | | PDT | syndrome), lower | | | | | | limb | | + +--------+ + + + | [place] THERAPEUTIC | Routin | 06/09/2012 | CRPS [...]
--- OUTSIDE RECORDS SUMMARY | ~2020-08-23 | XMS | Encounter Summary ---
Demographics + + + | Address | [address] | | | [place] [address] | + + + | Home Phone [...] Providers + +------+ + | Care Tracer Bullet Charging Machine Operator Name | Role | Phone | + +------+ + | Allegra Gandhi | PCP | | + +------+ + Reason for Visit + +--------+ + | Reason | Onset | Comments | | | Date | | + +--------+ + | Procedure | | | + +--------+ + | Injection | | | + +--------+ + | Procedure | 08/03/ | | | | 2011 | | [...] | | | regional | [place] | [address] | | | | | pain | FAMILY | Mailstop | | | | | syndrome), | MEDICINE P | [address] | | | | | lower limb | [address] | [place], [place] | | | | | Pain in | [place], | [address] | | | | | joint, lower | [place] [address] | Phone: | | | | | leg | Phone: | [phone] | | | | | Procedures | [phone] | Fax: | | | | | REQUEST TO | Fax: | [phone] | | | | | SURGERY | [phone] | | | | | | DIRECTOR OF PEDIATRIC REHABILITATION | | | +--------+--------+ + + + + Encounter Details +--------+ + + + + | Date | Type | Department | Care Team | Description | +--------+ + + + + | 08/02/ | Procedure | Pain Center at [facility] | Dale Cantu, | Procedure; | | 2011 | | [address] | [address] [facility] | Injection; Procedure | | | | [facility] | [facility] [address] | | | | | and Healing, | [place], [place] | | | | | [facility] | [address] | | | | | Floor [place], [place] | [phone] | | | | | [address] | | | | | | [phone] | | | +--------+ + + + [...] this encounter Patient Instructions Patient Instructions Bear Yost DO - 08/02/2012 6:34 AM PDTFormatting of this not e might be different from the original. [facility] Patient Instructions - Post Spinal Cord Stimulator Trial Date: 08/02/2012 Name: Tracie Farah Date of : 1990 Procedure Performed: SCS TRIAL LUMBAR [facility] Procedure Provider: Dale Cantu Banking Services Officer Procedure Rm If you have any problems you believe are associated with your procedure tonight, Please call the Hospital Tire Fabricator, and ask for the Pain Management Consu ltant. If you have problems or questions between 9:00 am and 4:00 pm, Please call the [facility] Nurse Triage Line, . If you go to an Emergency Room, please bring this form with you. DISCHARGE INSTRUCTIONS Call immediately and/or go to the Emergency department if any concerns about wound healing, fever, or chills. Also call for concerns about SCS function. During [facility] open hours, call the [facility] ([phone]), after hours call the die stamping press operator at [facility] ([phone]) and ask for t he Adult Pain Service production cloth cutter. Identify yourself as a [facility] [...] or swollen, or if the pain increases, p pradeep call the phone number listed above, and/or [...] the wounds, dressing, or SCS function. During RING CONDUCTOR o pen hours, call the [facility] ([phone]), after hours call the die stamping press operator at [facility] ([phone] ) and ask for the Adult Pain Service production cloth cutter. Identify yourself as my patient with a concer n about postoperative recovery. If there are concerns about the SCS programming, contact t he marketing sales representative from the SCS foundation relations manager. If the stimulation is not covering your area o f pain, your SCS should be reprogrammed. Do not take any blood thinning medications during the trial. Instructions printed and reviewed with the patient. Copy of instructions given to Nemo meyersn. DALE CANTU MD [facility] documented in this encounter [...] and postoperative care instructions. DALE CANTU MD Flat Knitter, [facility] Utility Repairer, Pain Medicine Professor, Anesthesiology & Perioperative Medicine iDiana scott RN - 08/02/2012 7:34 AM PDT PRE-SEDATION: Date: August 02, 2012 Tracie Donaldson [facility] [id number] 1990 ALLERGIES: Morphine Previous reaction to Sedation/Analgesia: MEDICATIONS: Current Outpatient Prescriptions Medication HYDROcodone-acetaminophen (NORCO) 10-325 mg Oral Tablet KETOROLAC TROMETHAMINE (TORADOL IM) levonorgestrel (MIRENA) 20 mcg/24 hr Intrauterine IUD LORazepam 1 mg Oral Tablet ondansetron (ZOFRAN) 8 mg Oral Tablet promethazine 25 mg Oral Tablet Meets NPO Guidelines. IV ACCESS: IV in Place IV Site [facility] 22 g @ 06 BASELINE VS: See Sedation Flow Sheet. Tracie Donaldson [facility] [id number] 1990, presents to clinic for: Procedure: Spinal [...] 0732 - 0733: Midazolam 2 [place] [address]: Fentanyl 25 mcg IV 0740 - 0741: Midazolam 2 mg IV 0742: Procedure started 0743 - 0744: Fentanyl 50 mcg IV 0753-54: Fentanyl 25 mcg IV Lead # 1 placed Lead # 2 placed 0801: Stimulation started. 0829: Pt reports stimulation to usual areas of pain. Leads secured. 0845: Pt returned to bay 1 per man in stable condition. IV dc'd. [...] Bear Ward DO - 08/02/2012 6:35 AM PDTPROVIDER OPERATIVE NOTE Date: August 02, 2012 Location: [facility] Procedure Room Tracie Farah [id number] :1990, presents to clinic for: PROCEDURE: Spinal Cord Stimuation Trial LEVEL/LATERALITY: midline lumbar PRE-OPERATIVE DIAGNOSIS: 355.71B CRPS (complex regional pain syndrome), lower limb 719.46 Pain in joint, lower leg 781.2Q Gait disturbance POST-OPERATIVE DIAGNOSIS: 355.71B CRPS (complex regional pain syndrome), lower limb 719.46 Pain in joint, lower leg 781.2Q Gait disturbance ATTENDING PHYSICIAN: Dale Cantu MD BRIM ROUNDER: Fellow Bear Yost DO ANESTHESIA: sedation delivered [...] with Chloroprep and sterile drapes were applied. [employer] system was used for this procedure. The company marketing sales representative was theresa knutson for the [...] pain. Ms. Farah was transported to the [facility] post-procedure recovery area where she made an uneventful recovery. Images were saved, and sent to [facility]. Ms. Farah will have her next appointment [...] [facility] open hours, call the RING CONDUCTOR ([phone]), after h ours call the die stamping press operator at [facility] ([phone]) and ask for the Adult Pain Service production cloth cutter. Identify yourself as my patient with a concern about postoperative recovery. DALE CANTU MD was present for the entire procedure. BEAR YOST DO documented in this en counter Miscellaneous Notes Scan - Anders Morales - 08/04/2012 8:31 AM PDTElectronically signed by Anders Morales at 8:31 AM PDTdocumented in this encounter Plan of Treatment Not on filedocumented as of this encounter Procedures + +--------+ + + + | Procedure Name | Priori | Date/Time | Associated Diagnosis | Comments | | | ty | | | | + +--------+ + + + | LA PERCUT IMPLNT | Routin | 08/03/2012 | [...] | + +--------+ + + + | JOSE TRIAL LEAD | Routin | 08/02/2012 | CRPS (complex | | | KIT (3686) | e | 7:59 AM | regional [...]
--- OUTSIDE RECORDS SUMMARY | ~2020-08-23 | XMS | Encounter Summary ---
Demographics + + + | Address | [address] | | | [place] [address] | + + + | Home Phone [...] Providers + +------+ + | Care Band Saw Runner Name | Role | Phone | + +------+ + | Justo Vazquez MD | PCP | | + +------+ + Reason for Visit +--------+--------+ + | Reason | Onset | Comments | | | Date | | +--------+--------+ + | Other | 06/07/ | Patient in severe stomach Pain | | | 2016 | | +--------+--------+ + Encounter Details +--------+ + + + + | Date | Type | Department | Care Team | Description | +--------+ + + + + | 06/07/ | Telephone | [facility] | Kenny Gaspar MD | Other (Patient in | | 2016 | | Center at [facility] [address] | | severe stomach Pain) | | | | [facility] | | | | | | for Health and | | | | | | Healing, [facility] [address] | | | | | | [place], [place] | | | | | | [address] | | | | | | [phone] | | | +--------+ + + + [...] Telephone Encounter - Tala Burns RN - 06/07/2017 1:[address] Gaspar , he will plan to call Tracie by the end of the today. At this time he recommends she check i n with Pain Clinic for their recommendations on management of acute pain. Spoke with Tracie and connected her to the Pain Clinic to discuss. elephone Encounter - Viri Mendez - 05/15 12:41 PM PDTI sent an instant message to Tala Corrales and she said to page Dr Gaspar. I page Dr Gaspar and he never returned my pageElectronically signed by Viri Mendez at 05/15 12:45 PM PDTTelephone Encounter - Tala Bursn RN - 06/07/2017 12:24 PM PDTNilson patel with Tracie about her pain. 10 days of abdominal pain on and off. At times 10/10. Has been to [facility] for hydration and anti-emetics one time, went to ED 2 days ago at [facility], was vic ated and sent home. Terrible pain with vomiting. Feels like local hospital isn't helping, and she is asking about direct admission to [facility]. She states her current pain is 9/10 and she is crying on the phone. "I can't do this anymor e." Emotional support provided, let her know I would check with Dr. Gaspar and get back to her today, she is agreeable to plan. Paged Dr. Gaspar to alert to time sensitive request. Pain center appointment 04/25/17: New dx fibromyalgia. Recommendation/Plan: #1 Continue Flexeril continued #2 Try Pregabalin (Will send note to Justo Vazquez MD) started about 1 week ago #[address] Santacruz (pain psychology) has not had first appointment yet #4 Follow up with me after Dr. Santacruz #5 May consider injection into scar in the future #6 Resources: The Fibro Manual, by Freddie Guadalupe MD www.myalgia.[employer] Central sensitization elephone Encounter - Viri Mendez - 06/07/2017 11:45 AM PDTPatient is calling and sh e states that she is in Severe stomach pain scale number 8 This has been going on for about 10 days she has gone to the ER she can't stand the pain anymore documented in this encounter Plan of Treatment Not on filedocumented as of this encounter Visit Diagnoses Not on filedocumented in this encounter
--- OUTSIDE RECORDS SUMMARY | ~2020-08-23 | XMS | Encounter Summary ---
Demographics + + + | Address | [address] | | | [place] [address] | + + + | Home Phone [...] Author | [facility] | | | and [place] | + [...] [place] | | | | | [address] | | + + + + + | Bryant Farah | ECON | Unknown | | + + + + + Care Team Providers + +------+ + | Care Senior Architectural Designer Name | Role | Phone | + +------+ + PCP | Unavailable | + +------+ + Encounter Details +--------+ + + + + | Date | Type | Department | Care Team | Description | +--------+ + + + + | 06/22/ | Emergency | [facility] | Chung Portillo | Nondiabetic | | 2016 | | MEDICAL CENTER | DO [address] | gastroparesis | | | | EMERGENCY CENTER | [address] | | | | | [address] | [place], [place] | | | | | [place], [place] | [address] | | | | | [address] | [phone] | | | | | [phone] | | | +--------+ + + + [...] 06/23/161053 Date of Service: 06/23/161053 Status: Signed Branch Associate: Devante Guerrero MD (Physician) Procedures Additional Documentation Procedures Pharmacy called to clarify viscous lidocaine order - there was no frequency specified. I a dvised Q 4 hours PRN. Devante Guerrero MD 06/23/161053 John Mcgee PA-C - 06/22/2016 7:25 PM PDT ED Provider Notes by John Leonard PA-C at 06/22/161924 Author: John Leonard PA-C Service: Emergency Department Author Type: Physician Finger Buff Sewer - Certified Filed: 06/22/162104 Date of Service: 06/22/161924 Status: Signed Branch Associate: John Leonard PA-C (Physician Finger Buff Sewer - Certified) Cosigner: Chung Portillo DO at 06/22/16 2312 Procedures [facility] EM[facility]Y [facility] History of Present Illness [...] department evaluations and treatment with Reglan at [facility] and has come to [facility] for, further evaluation and relief. 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 Past Medical History Diagnosis [...] TRIAL; Surgeon: Ulices Hayes MD; Locati on: [facility]; Service: Pain Management; Laterality: N/A; 10:30 [...] Component Value Ref Range Date/Time Lactic acid [[id number]] Collected: 06/22/161850 Order Status: Completed Specimen Information: Blood Updated: 06/22/162010 LACTIC ACID 1.2 0.4 - 2.0 mmol/L Magnesium [[id number]] Collected: 06/22/161850 Order Status: Completed Specimen Information: Blood Updated: 06/22/162008 MAGNESIUM 2.1 1.7 - 2.4 mg/dL Phosphorus [[id number]] Collected: 06/22/161850 Order Status: Completed Specimen Information: Blood Updated: 06/22/162008 PHOSPHORUS 3.6 2.3 - 4.8 mg/dL Lipase [[id number]] Collected: 06/22/161850 Order Status: Completed Specimen Information: Blood Updated: 06/22/161926 LIPASE 103 73 - 393 U/L Comprehensive metabolic panel [[id number]] (Abnormal) Collected: 06/22/161850 Order Status: Completed Specimen [...] 65 U/L EGFR >60 >60 mL/min/1.73m2 Amylase [[id number]] Collected: 06/22/161850 Order Status: Completed Specimen Information: Blood Updated: 06/22/161926 AMYLASE 39 25 - 115 U/L C-reactive protein [[id number]] Collected: 06/22/161850 Order Status: Completed Specimen Information: Blood Updated: 06/22/161926 CRP <0.3 <0.5 mg/dL CBC with differential [[id number]] Collected: 06/22/161850 Order Status: Completed Specimen Information: [...] K/uL Urinalysis (reflex to micro/reflex to culture) [[id number]] Collected: 06/22/161848 Order Status: Completed Specimen Information: Urine, Clean Catch Updated: 06/22/16 19 09 COLOR UA STRAW CLARITY CLEAR Specific [place], UA 1.005 1.002 - 1.030 LEUKOCYTE ESTERASE NEGATIVE NEGATIVE NITRITE NEGATIVE NEGATIVE UROBILINOGEN NORMAL <1.1 mg/dL PROTEIN NEGATIVE NEGATIVE mg/dL PH,URINE 7.0 5.0 - 8.0 BLOOD NEGATIVE NEGATIVE KETONES NEGATIVE NEGATIVE mg/dL BILIRUBIN NEGATIVE NEGATIVE GLUCOSE NEGATIVE NEGATIVE mg/dL Urine Test [[id number]] Collected: 06/22/161848 Order Status: Completed Specimen Information: [...] as soon as possible for a visit [address] [place] [address] Allegra Chaudhary PA-C In 1 week [address] [place] [id number] [facility] Emergency Department If symptoms worsen [address] [place] [address] [id number] Discharge Medications: Discharge Medication List as of [...] 06/22/161745 Date of Service: 06/22/161745 Status: Signed Branch Associate: Sd Comer RN (Registered Nurse) Patient given [...] EXTERNAL | | | | performed at [facility];[address] | K/uL | LAB | | | | [address];[place] | | | | | | [address] | | | | + + + + + + | Non- | 4.46Comment: Testing | 3.70 - 5.10 | EXTERNAL | | | Red Blood | performed at [facility];[address] | M/uL | LAB | | | Cells | [address];[place] | | | | | Counted | [address] | | | | + + + + + + | Hemoglobin | 13.9Comment: Testing | 11.3 - 15.5 | EXTERNAL | | | | performed at [facility];888 | g/dL | LAB | | | | [address];[place] | | | | | | [address] | | | | + + + + + + | Hematocrit, | 41.0Comment: Testing | 34.0 - 46.0 % | EXTERNAL | | | POC | performed at [facility];[address] | | LAB | | | | [address];[place] | | | | | | [address] | | | | + + + + + + | MCV | 91.9Comment: Testing | 80.0 - 100.0 fl | EXTERNAL | | | | performed at [facility];[address] | | LAB | | | | [address];[place] | | | | | | [address] | | | | + + + + + + | MCH | 31.1Comment: Testing | 27.0 - 34.0 pg | EXTERNAL | | | | performed at [facility];[address] | | LAB | | | | [address];[place] | | | | | | [address] | | | | + + + + + + | MCHC | 33.9Comment: Testing | 32.0 - 35.5 | EXTERNAL | | | | performed at [facility];888 | g/dL | LAB | | | | [address];[place] | | | | | | [address] | | | | + + + + + + | RDW-CV | 40.3Comment: Testing | 37 - 53 fl | EXTERNAL | | | | performed at [facility];[address] | | LAB | | | | [address];[place] | | | | | | [address] | | | | + + + + + + | Platelet | 203Comment: Testing | 150 - 400 K/uL | EXTERNAL | | | Count | performed at [facility];888 | | LAB | | | Plasma | [address];[place] | | | | | | [address] | | | | + + + + + + | MPV | 8.3Comment: Testing | fl | EXTERNAL | | | | performed at [facility];[address] | | LAB | | | | [address];[place] | | | | | | [address] | | | | + + + + + + | Differentia | AUTOMATEDComment: | | EXTERNAL | | | l Type | Testing performed at | | LAB | | | | [facility];[address];[place] [address] | | | | + + + + + + | % Segmented | 65.86Comment: Testing | % | EXTERNAL | | | | performed at [facility];[address] | | LAB | | | Neutrophils | [address];[place] | | | | | | [address] | | | | + + + + + + | % | 25.52Comment: Testing | % | EXTERNAL | | | Lymphocytes | performed at [facility];[address] | | LAB | | | | [address];[place] | | | | | | [address] | | | | + + + + + + | % Monocytes | 6.38Comment: Testing | % | EXTERNAL | | | | performed at [facility];[address] | | LAB | | | | [address];[place] | | | | | | [address] | | | | + + + + + + | % | 1.61Comment: Testing | % | EXTERNAL | | | Eosinophils | performed at [facility];[address] | | LAB | | | | [address];[place] | | | | | | [address] | | | | + + + + + + | % Basophils | 0.63Comment: Testing | % | EXTERNAL | | | | performed at [facility];[address] | | LAB | | | | [address];[place] | | | | | | [address] | | | | + + + + + + | Absolute | 6.91Comment: Testing | 1.90 - 7.40 | EXTERNAL | | | Segmented | performed at [facility];[address] | K/uL | LAB | | | Neutrophils | [address];[place] | | | | | | [address] | | | | + + + + + + | Absolute | 2.68Comment: Testing | 1.00 - 3.90 | EXTERNAL | | | Lymphocytes | performed at [facility];[address] | K/uL | LAB | | | | [address];[place] | | | | | | [address] | | | | + + + + + + | Absolute | 0.67Comment: Testing | 0.00 - 0.80 | EXTERNAL | | | Monocytes | performed at [facility];[address] | K/uL | LAB | | | | [address];[place] | | | | | | [address] | | | | + + + + + + | Absolute | 0.17Comment: Testing | 0.00 - 0.50 | EXTERNAL | | | Eosinophils | performed at [facility];[address] | K/uL | LAB | | | | [address];[place] | | | | | | [address] | | | | + + + + + + | Absolute | 0.07Comment: Testing | 0.00 - 0.10 | EXTERNAL | | | Basophils | performed at [facility];[address] | K/uL | LAB | | | | [address];[place] | | | | | | [address] | | | | + + + [...] EXTERNAL | | | | performed at [facility];[address] | | LAB | | | | [address];[place] | | | | | | [address] | | | | + + + [...] EXTERNAL | | | | performed at [facility];[address] | | LAB | | | | [address];[place] | | | | | | [address] | | | | + + + [...] LAB | | | | performed at [facility];[address] | | | | | | [address];[place], [place] | | | | | | [address] | | | | + + + [...] EXTERNAL | | | | performed at [facility];[address] | | LAB | | | | [address];[place] | | | | | | [address] | | | | + + + [...] EXTERNAL | | | | performed at [facility];888 | mmol/L | LAB | | | | [address];[place], [place] | | | | | | [address] | | | | + + + [...] EXTERNAL | | | | performed at [facility];[address] | | LAB | | | | [address];[place], [place] | | | | | | [address] | | | | + + + [...] EXTERNAL | | | | performed at [facility];888 | mmol/L | LAB | | | | [address];[place] | | | | | | [address] | | | | + + + + + + | K | 3.8Comment: Testing | 3.5 - 4.9 | EXTERNAL | | | | performed at [facility];888 | mmol/L | LAB | | | | [address];[place] | | | | | | [address] | | | | + + + + + + | Cl | 104Comment: Testing | 99 - 109 mmol/L | EXTERNAL | | | | performed at [facility];[address] | | LAB | | | | [address];[place] | | | | | | [address] | | | | + + + + + + | CO2 | 27Comment: Testing | 23 - 32 mmol/L | EXTERNAL | | | | performed at [facility];[address] | | LAB | | | | [address];[place] | | | | | | [address] | | | | + + + + + + | Anion Gap | 12Comment: Testing | 5 - 20 mmol/L | EXTERNAL | | | | performed at [facility];[address] | | LAB | | | | [address];[place] | | | | | | [address] | | | | + + + + + + | Glucose, | 80Comment: Testing | 65 - 99 mg/dL | EXTERNAL | | | Fasting | performed at [facility];[address] | | LAB | | | | [address];[place] | | | | | | [address] | | | | + + + + + + | BUN | 4 (L)Comment: Testing | 8 - 25 mg/dL | EXTERNAL | | | | performed at [facility];[address] | | LAB | | | | [address];[place] | | | | | | [address] | | | | + + + + + + | Creatinine | 0.83Comment: Testing | 0.50 - 1.00 | EXTERNAL | | | | performed at [facility];888 | mg/dL | LAB | | | | [address];[place] | | | | | | [address] | | | | + + + + + + | BUN/Creatin | 5Comment: Testing | | EXTERNAL | | | ine Ratio | performed at [facility];[address] | | LAB | | | | [address];[place] | | | | | | [address] | | | | + + + + + + | Calcium | 9.1Comment: Testing | 8.5 - 10.5 | EXTERNAL | | | | performed at [facility];888 | mg/dL | LAB | | | | [address];[place] | | | | | | [address] | | | | + + + + + + | Protein, | 7.4Comment: Testing | 6.3 - 8.2 g/dL | EXTERNAL | | | Total | performed at [facility];[address] | | LAB | | | | [address];[place] | | | | | | [address] | | | | + + + + + + | Albumin | 4.5Comment: Testing | 3.6 - 5.0 g/dL | EXTERNAL | | | | performed at [facility];[address] | | LAB | | | | [address];[place] | | | | | | [address] | | | | + + + + + + | Globulin | 3.0Comment: Testing | 1.3 - 4.9 g/dL | EXTERNAL | | | | performed at [facility];[address] | | LAB | | | | [address];[place] | | | | | | [address] | | | | + + + + + + | A/G Ratio | 1.5Comment: Testing | 1.0 - 2.4 | EXTERNAL | | | | performed at [facility];[address] | | LAB | | | | [address];[place] | | | | | | [address] | | | | + + + + + + | Bilirubin | 0.6Comment: Testing | 0.1 - 1.5 mg/dL | EXTERNAL | | | Total | performed at [facility];[address] | | LAB | | | | [address];[place] | | | | | | [address] | | | | + + + + + + | ALP, | 61Comment: Testing | 35 - 115 U/L | EXTERNAL | | | External | performed at [facility];[address] | | LAB | | | | [address];[place] | | | | | | [address] | | | | + + + + + + | AST | 7 (L)Comment: Testing | 10 - 45 U/L | EXTERNAL | | | | performed at [facility];[address] | | LAB | | | | [address];[place] | | | | | | [address] | | | | + + + + + + | ALT | 20Comment: Testing | 10 - 65 U/L | EXTERNAL | | | | performed at [facility];[address] | | LAB | | | | [address];[place] | | | | | | [address] | | | | + + + [...] | | | | | | at [facility];[address];[place] [address] | | | | + + + [...] EXTERNAL | | | | performed at [facility];[address] | | LAB | | | | [address];[place] | | | | | | [address] | | | | + + + + + + | Clarity, | CLEARComment: Testing | | EXTERNAL | | | Urine | performed at [facility];[address] | | LAB | | | | [address];[place] | | | | | | [address] | | | | + + + + + + | Specific | 1.005Comment: Testing | 1.002 - 1.030 | EXTERNAL | | | [place], | performed at [facility];[address] | | LAB | | | Urine | [address];[place] | | | | | | [address] | | | | + + + + + + | Leukocyte | NEGATIVEComment: Testing | | EXTERNAL | | | Esterase, | performed at [facility];[address] | | LAB | | | Urine | [address];[place] | | | | | | [address] | | | | + + + + + + | Nitrite, | NEGATIVEComment: Testing | | EXTERNAL | | | Urine | performed at [facility];[address] | | LAB | | | | [address];[place] | | | | | | [address] | | | | + + + + + + | Urobilinoge | NORMALComment: Testing | mg/dL | EXTERNAL | | | n, Urine | performed at [facility];[address] | | LAB | | | | [address];[place] | | | | | | [address] | | | | + + + + + + | Protein, | NEGATIVEComment: Testing | mg/dL | EXTERNAL | | | Urine | performed at [facility];[address] | | LAB | | | | [address];[place] | | | | | | [address] | | | | + + + + + + | pH, Urine | 7.0Comment: Testing | 5.0 - 8.0 | EXTERNAL | | | | performed at [facility];[address] | | LAB | | | | [address];[place] | | | | | | [address] | | | | + + + + + + | Blood, | NEGATIVEComment: Testing | | EXTERNAL | | | Urine | performed at [facility];[address] | | LAB | | | | [address];[place] | | | | | | [address] | | | | + + + + + + | Ketones | NEGATIVEComment: Testing | mg/dL | EXTERNAL | | | | performed at [facility];[address] | | LAB | | | | [address];[place] | | | | | | [address] | | | | + + + + + + | Bilirubin, | NEGATIVEComment: Testing | | EXTERNAL | | | Urine | performed at [facility];[address] | | LAB | | | | [address];[place] | | | | | | [address] | | | | + + + + + + | Glucose, | NEGATIVEComment: Testing | mg/dL | EXTERNAL | | | Urine | performed at [facility];[address] | | LAB | | | | [address];[place], [place] | | | | | | [address] | | | | + + + [...] | | | Ur | performed at [facility];[address] | | LAB | | | | [address];[place], [place] | | | | | | [address] | | | | + + + [...]
--- OUTSIDE RECORDS SUMMARY | ~2020-08-23 | XMS | Encounter Summary ---
Demographics + + + | Address | [address] | | | [place] [address] | + + + | Home Phone [...] Team Providers + +------+ + | Care Craft Manager Name | Role | Phone | + +------+ + | Justo Vazquez MD | PCP | | + +------+ + Encounter Details +--------+ + + + + | Date | Type | Department | Care Team | Description | +--------+ + + + + | 06/07/ | Telephone | [facility] | Alex Sanchez, | | | 2019 | | Pain Center at | ,PhD [address] | | | | | [facility] | [address] | | | | | [address] | [place], [place] | | | | | [place] [facility] | [address] | | | | | and Healing, | [phone] | | | | | | | | | | | Floor [place], [place] | | | | | | [address] | | | | | | [phone] | | | +--------+ + + + [...] Notes Telephone Encounter - Vanessa Edmondson - 06/18/2019 4:45 PM PDTPatient would like to have this referral sent over again to the fax and put lamine Sarah on the front page. They have not received this fax (referral with chart notes)Electronically signed by Vanessa Edmondson at 019 4:46 PM PDTTelephone Encounter - Cristela Rg MA - 06/08/2019 12:31 PM PDTRouted to provider. elephone E julia - Tracie Olivas - 06/07/2019 3:34 PM PDTDoes patient have confidential voicemail so we can leave detailed messages?: Yes Reason for call: Patient reqeusts a new referral to [facility] in [place], [place] (fax # , attn Dr Sarah) that states her foot is doing better with the implant, but that the boone still need to be removed. She requests this referral from Dr Sanchez with all [facility] chart notes, including most recent. documented in this encount er Plan of Treatment Not on filedocumented as of this encounter Visit Diagnoses Not on filedocumented in this encounter"
--- OUTSIDE RECORDS SUMMARY | ~2020-08-23 | XMS | Encounter Summary ---
Demographics + + + | Address | [address] | | | [place] [address] | + + + | Home Phone [...] Team Providers + +------+ + | Care Playback Operator Name | Role | Phone | + +------+ + | Allegra Gandhi | PCP | | + +------+ + Reason for Visit +--------+--------+ + | Reason | Onset | Comments | | | Date | | +--------+--------+ + | Pain | 03/10/ | | | | 2011 | | +--------+--------+ + Encounter Details +--------+ + + + + | Date | Type | Department | Care Team | Description | +--------+ + + + + | 03/10/ | Telephone | [facility] | Janak Riojas, | Pain | | 2011 | | Pain Center at | [address] [facility] | | | | | [facility] | [facility] [address] | | | | | [address] | [place], [place] | | | | | [facility] | [address] | | | | | and [place], | [phone] | | | | | [facility] | | | | | | Floor [place], [place] | | | | | | [address] | | | | | | [phone] | | | +--------+ + + + [...] Notes Telephone Encounter - Obdulio Thompson - 08/25/2015 1:47 PM PDTThis encounter has been admin istratively closed with the authorization of the [facility] Committee. elephone Encounter - Milagros Hernandez - 03/10/2012 1:52 PM PDTFormatting of this note might be different from the belen josias. Reason for Call: Pain Patient: Tracie Farah Contact Information: Home Phone Message: Description of reason for call: Pt has a flare up of CRPS and said her pain medication is n ot working for her pain. Pt already called her PCP to see if they could help with her pain, they said they are willing but needs to know guidelines from Dr. Riojas regarding what they can and can t do. Please advise. Last Encounter with [facility]: Last Results Only in [facility] was on 03/01/12 with Janak Riojas MD. Future Appointments: Next Appointment in [facility] is on 03/17/12 at 3:45 pm with Janak Riojas MD. Patient's Preferred Pharmacy: Pharmacy Preferences: No preferred pharmacy on file. documented in this encoun ter Plan of Treatment Not on filedocumented as of this encounter Visit Diagnoses Not on filedocumented in this encounter"
--- OUTSIDE RECORDS SUMMARY | ~2020-08-23 | XMS | Encounter Summary ---
Demographics + + + | Address | [address] | | | [place] [address] | + + + | Home Phone [...] Providers + +------+ + | Care Manager Nuclear Name | Role | Phone | + [...] JAYDEN Delvalle | | | | | [facility] | [address] | | | | | [address] | [place], [place] | | | | | [place] for [facility] | [address] | | | | | and Healing, | [phone] | | | | | | | | | | | Floor [place], [place] | | | | | | [address] | | | | | | [phone] | | | +--------+ + + + [...] Telephone Encounter - Cristela Rg MA - 08/07/2019 3:57 PM PDTRouted to provider. Elec tronically signed by Cristela Rg MA at 08/07/2019 3:57 PM PDTTelephone Encounter - Tracie Marin - 08/07/2019 2:43 PM PDTDoes patient have confidential voicemail so we can leave detailed messages?: Yes Reason for call: Patients data warehousing manager, Dr Azul, requests a call in regards to coordination of care for this mutual patient. Please call his cell # [phone]. documented in this encount er Plan of Treatment Not on filedocumented as of this encounter Visit Diagnoses Not on filedocumented in this encounter"
--- OUTSIDE RECORDS SUMMARY | ~2020-08-23 | XMS | Encounter Summary ---
Demographics + + + | Address | [address] | | | [place] [address] | + + + | Home Phone [...] + +------+ + | Care Computer Systems Technology Instructor Name | Role | Phone [...] | | | | | [address] | | | | | | [address] | | | | | | Liane Cai, | | | | | | [address] [place] [address], | | | | | | [place] [address] | | | | | | [phone] | | | +--------+ + + + [...]
--- OUTSIDE RECORDS SUMMARY | ~2020-08-23 | XMS | Encounter Summary ---
Demographics + + + | Address | [address] | | | [place] [address] | + + + | Home Phone [...] Providers + +------+ + | Care Diamond Sizer Name | Role | Phone | + [...] Approved | | | | Giuliana Maldonado [place], | | | | | | [place] [address] | | | +--------+ + + + [...] Telephone Encounter - Vivian Escudero - 07/25/2012 12:42 PM PDTPt. Returned call. Did scre ening over the phone. Passed and faxed form to Luis M Pak. Informed Pt. That she needs to call the day of stay to make sure that there is a room available. Electronically s igned by Vivian Escudero at 07/25/2012 12:44 PM PDTdocumented in this encounter Plan of Treatment Not on filedocumented as of this encounter Visit Diagnoses Not on filedocumented in this encounter"
--- OUTSIDE RECORDS SUMMARY | ~2020-08-23 | XMS | Encounter Summary ---
Demographics + + + | Address | [address] | | | [place] [address] | + + + | Home Phone [...] + +------+ + | Care In Store Representative Name | Role | Phone | [...] | Diagnoses | Beulah | [employer] | | | | Therapy | CRPS | Janak Martinez MD | [address] | | | | | (complex | [address] | | | | | regional | [address] | Mailcode: | | | | | pain | Mailstop | [facility] | | | | | syndrome), | [id number] | for Health | | | | | lower limb | [place], [place] | and Healing, | | | | | Gait | [address] | [address] | | | | | disturbance | Phone: | [place], [place] | | | | | Muscle pain | [phone] | [address] | | | | | Procedures | Fax: | Phone: | | | | | PHYSICAL | [phone] | [phone] | | | | | THERAPY | [...] | | | | [address] | [place] [address] | syndrome), lower | | | | [address] | [phone] | limb (Primary Dx) | | | | [facility] | | | | | | and Healing, | | | | | | Building 1, | | | | | | Floor [place], [place] | | | | | | [address] | | | | | | [phone] | | | +--------+---------+ + + + [...] might be different f rom the original. [id number] BRODY FARAH Date of : 1990 Start of care: 02/14/2012 Date of onset: 02/14/2012 Referring/Attending Practitioner: Janak Riojas MD . Primary/Referral Diagnosis/ICD-9: 355.71B CRPS (complex regional pain syndrome), lower limb Insurance: Payor: [facility] Plan: BCBS OUT OF STATE Product [...] change in their status. Guillermo Sanon [facility] Outpatient Rehabilitation Services Mailcode: Ch3p [address] [facility], [address] [facility] [address] documented in this encounter Plan [...]
--- OUTSIDE RECORDS SUMMARY | ~2020-08-23 | XMS | Encounter Summary ---
Demographics + + + | Address | [address] | | | [place] [address] | + + + | Home Phone [...] Providers + +------+ + | Care Sheet Rocker Name | Role | Phone | + +------+ + | Allegra Gandhi | PCP | | + +------+ + Encounter Details +--------+ + + + + | Date | Type | Department | Care Team | Description | +--------+ + + + + | 03/01/ | Results | [facility] | Janak Riojas, | | | 2011 | Only | Pain Center at | MD [address] [facility] | | | | | [facility] | [facility] [id number] | | | | | [address] | [place], [place] | | | | | Center for Health | [address] | | | | | and Martina, | [phone] | | | | | | | | | | | Floor [place], [place] | | | | | | [address] | | | | | | [phone] | | | +--------+ + + + [...]
--- OUTSIDE RECORDS SUMMARY | ~2020-08-23 | XMS | Encounter Summary ---
Demographics + + + | Address | [address] | | | [place] [address] | + + + | Home Phone | | + + + | Preferred Language | Unknown | + + + | Marital Status | Single | + + + | Sabianist Affiliation | 1073 | + + + | Race | White | + + + | Ethnic Group | Not or | + + + Author + + + | Author | [facility] | | | and [place] | + + + | Organization | [facility] | | [...] [place] | | | | | [address] | | + + + + + | Bryant Farah | ECON | Unknown | | + + + + + Care Team Providers + +------+ + | Care Design Engineer Name | Role | Phone | + +------+ + PCP | Unavailable | + +------+ + Encounter Details +--------+ + + + + | Date | Type | Department | Care Team | Description | +--------+ + + + + | 07/26/ | Hospital | [facility] | | | | 2008 | Encounter | [facility] | | | | | | CENTER [address] | | | | | | [place], [place] | | | | | | [address] | | | | | | [phone] | | | +--------+ + + + [...]
--- OUTSIDE RECORDS SUMMARY | ~2020-08-23 | XMS | Encounter Summary ---
Demographics + + + | Address | [address] | | | [place] [address] | + + + | Home Phone [...] Providers + +------+ + | Care Foundry Process Engineer Name | Role | Phone | + +------+ + | Justo Vazquez MD | PCP | | + +------+ + Encounter Details +--------+ + + + + | Date | Type | Department | Care Team | Description | +--------+ + + + + | 01/11/ | Procedure | Diagnostic Imaging | | | | 2016 | Pass | Services at [facility] | | | | | | [address] | | | | | | Giuliana Roberson | | | | | | [facility] | | | | | | [place], [place] | | | | | | [address] | | | | | | [phone] | | | +--------+ + + + [...]
--- OUTSIDE RECORDS SUMMARY | ~2020-08-23 | XMS | Encounter Summary ---
Demographics + + + | Address | [address] | | | [place] [address] | + + + | Home Phone [...] Team Providers + +------+ + | Care Frit Mixer Name | Role | Phone | [...] with nausea | [address] | [address] [place], | | | | | Complex | Rd | [place] | | | | | regional | [place], [place] | [address] | | | | | pain | [address] | Phone: | | | | | syndrome | Phone: | [phone] | | | | | type 1 of | [phone] | Fax: | | | | | left lower | Fax: | [phone] | | | | | extremity | [phone] | | | | | | Procedures [...] | | | | | unspecified | [facility] | [address] | | | | | location | Rd | [facility] | | | | | Procedures | [place], [place] | Rd [place], | | | | | CONSULT TO | [address] | [place] | | | | | PAIN | | [address] | | | | | MANAGEMENT | | Phone: | | | | | | | [phone] | | | | | | | Fax: | | | | | | | [phone] | +--------+--------+ + + + + Encounter Details +--------+---------+ + + + | Date | Type | Department | Care Team | Description | +--------+---------+ + + + | 04/19/ | Office | [facility] Ilene | Alex Sanchez, | Intractable cyclical | | 2018 | Visit | Pain Center at | ,PhD [address] | vomiting with | | | | [facility] | [address] | nausea (Primary Dx); | | | | [address] | [place], [place] | Complex regional | | | | [place] for [facility] | [address] | pain syndrome type 1 | | | | and Healing, | [phone] | of left lower | | | | Building | | extremity | | | | Floor [facility] [place] | | | | | | [address] | | | | | | [phone] | | | +--------+---------+ + + + [...] might be differe nt from the original. [facility] Return Visit Date: 04/20/2018 Chief Complaint Patient presents with Abdominal pain Back pain Pain in left leg History of Present Illness: Tracie Farah is a 27 year old female, whose last appoi ntment at the [facility] was 12/27/2017, for [...] not help for the abdominal pain). PAINBRIEF: BOILER OUT Brief Pain Inventory: (ten= worst possible pain or complete interference): Right Now: 6 (04/19/18 1245) Least in 24 hours: 5 (04/19/18 1245) Worst in 24 hours: 8 (04/19/18 1245) Average: 6 (04/19/18 1245) % Relief (med/treat): 80 (04/19/18 1245) General Activity: 7 (04/19/18 124) Mood: 7 (04/19/18 124) Walking Ability: 7 (04/19/18 124) Normal Work: 7 (04/19/18 124) Relations with Others: 7 (04/19/18 124) Enjoyment of Life: 6 (04/19/18 124) Sexual Activity: 0 (04/19/18 1245) Sleep: 8 (04/19/18 124) Past Medical History: Diagnosis Date Abdominal pain [...] History Social History Narrative Single. Goes to [employer] with a light load. Has been working at [employer], can' t work on [employer]. Has roommates. Allergies Allergen Reactions Morphine Anaphylaxis [...] by physician. Concentration is 150mg/mL. Compounded by [facility] ) KETOROLAC IM Inject into the [...] directed by [facility]- 2 gallon bowel [...] was last seen, she attempted to obtain [facility] injections for her scar with Richie Sims [...] to her by Christie Madrid MD in [place], [place]. As she chowdhury s since left the practice, Ms. Farah no longer has a prescriber for this medication. At [facility], we typically do not provide our patients with prescriptions bu as Ms. Farah has been dealing with [...] unclear etiology. [facility], and is greatly helped by Toradol, antiemetics and a dose of IV opioid. I will review [facility] records and provide her with a letter summarizing what therapies work for her. Next step will be a trial of DRG stimulation if no further ortho interventions are consider ed. She is to continue physical therapy and psychological therapy. Recommendation/Plan: Follow up as needed Alex Sanchez MD,PhD [facility] 3 :41 PM Charline Choe MA - 04/19/2018 1:00 PM PDTCMSoham History: 1. Has your pain changed from [...]
--- OUTSIDE RECORDS SUMMARY | ~2020-08-23 | XMS | Encounter Summary ---
Demographics + + + | Address | [address] | | | [place] [address] | + + + | Home Phone [...] Team Providers + +------+ + | Care Corrugator Operator Name | Role | Phone | + +------+ + | Justo Vazquez MD | PCP | | + +------+ + Reason for Visit + +--------+ + | Reason | Onset | Comments | | | Date | | + +--------+ + | Wound infection | 10/07/ | Concern for DRG trial wound infection | | | 2017 | | + +--------+ + Encounter Details +--------+ + + + + | Date | Type | Department | Care Team | Description | +--------+ + + + + | 10/07/ | Telephone | [facility] | Yosef Kenney MD | Wound infection | | 2018 | | Pain Center at | [address] | (Concern for DRG | | | | [facility] | [address] [place], | trial wound | | | | [address] | [place] [address] | infection) | | | | [place] for Health | [phone] | | | | | and Healing, | | | | | | | | | | | | Floor [place], [place] | | | | | | [address] | | | | | | [phone] | | | +--------+ + + + [...] Encounter - Yosef Kenney MD - 10/07/2018 8:00 PM Shona called on-call MD kiah mcclain worsening redness and now pain below the bandage of her DRG with greenish, foul-smell ing drainage. No systemic symptoms or new neurologic symptoms. Recommended she go to the [facility] ED to be evaluated. I called ahead to let them know she is coming. Spoke to Dr. Alex Sanchez (her pain provider). He recommends that she have the leads pull ed at this point, regardless of whether or not the ED provider feels there is an infection. If it is thought that there is an infection, would recommend Tracie be placed on a short cour se of antibiotics covering skin ty. Tracie should still plan on coming to her appointment on Tuesday, regardless. Yosef Kenney III, MD (Joe) Multidisciplinary Pain Fellow Department of Anesthesiology and Perioperative Medicine Pgr [id number] documented in this encou nter Plan of Treatment Not on filedocumented as of this encounter Visit Diagnoses Not on filedocumented in this encounter"
--- OUTSIDE RECORDS SUMMARY | ~2020-08-23 | XMS | Encounter Summary ---
Demographics + + + | Address | [address] | | | [place] [address] | + + + | Home Phone [...] Providers + +------+ + | Care Glass Tube Bender Name | Role | Phone | [...] | | pain | [address] | [place], [place] | | | | | syndrome | [place] | [address] | | | | | type 1 of | [address] | Phone: | | | | | left lower | Phone: | [phone] | | | | | extremity | [phone] | Fax: | | | | | Midline low | Fax: | [phone] | | | | | back pain | [phone] | | | | | | without [...] Date | | + +--------+ + | Low back pain | | | + +--------+ + | Back pain | | | + +--------+ + | Neck pain | | | + +--------+ + | Procedure | 07/10/ | | | | 2018 | | + +--------+ + Consultation (Routine) [...] Ave | | | | | | [place], [place] | [place], [place] | | | | | | [address] | [address] | | | | | | Phone: | Phone: | | | | | | [phone] | [phone] | | | | | | Fax: | Fax: | | | | | | [phone] | [phone] | +--------+---------+ + + + + Encounter Details +--------+---------+ + + + | Date | Type | Department | Care Team | Description | +--------+---------+ + + + | 07/04/ | Office | [facility] Comprehensive | Lane Reyes, | Complex regional | | 2019 | Visit | Pain Center at | [place] [address] | pain syndrome type 1 | | | | [facility] | [place], [place] | of left lower | | | | [address] | [address] | extremity (Primary | | | | [place] [facility] | [phone] | Dx); Midline low | | | | and Healing, | | back pain without | | | | | | sciatica, | | | | Floor [place], [place] | | unspecified | | | | [address] | | chronicity; | | | | [phone] | | Sacroiliac pain; | | | [...] her nutrition and seeing where she is randin g anselmo. She describes her typical diet [...] and help in coping with the pain. 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, Surgeon: [...] History Social History Narrative Single. Goes to [employer] with a light load. Has been working at [employer], can' t work on [employer]. Has roommates. Allergies Allergen Reactions Morphine [...] Tests: X-RAY SPINE CERV 4 VIEWS Order: [id number] Performed: 06/12/2018 11:40 Status: Final result Visible [...] the treatment performed by the chiropractic internet marketing specialist, Niesha Reveles, was directly observed by myself the primary chiropractor Lane Reyes [place] Visit Diagnoses: ICD-10-CM 1. Complex regional pain syndrome type 1 of left lower extremity G90.522 CONSULT TO PAIN HUGH WAN 2. Midline low back pain without sciatica, unspecified chronicity M54.5 CONSULT TO PAIN DOTTIE SHABANAGONZÁLEZ 3. Sacroiliac pain M53.3 CONSULT TO PAIN MANAGEMENT [place] CHIROPRAC MANIP,SPINAL,1-2 REGIONS 4. Sacral dysfunction M53.3 [place] CHIROPRAC MANIP,SPINAL,1-2 REGIONS 5. Somatic dysfunction of pelvis region M99.05 [place] CHIROPRAC MANIP,SPINAL,1-2 REGIONS 6. Somatic dysfunction of sacral region M99.04 [place] CHIROPRAC MANIP,SPINAL,1-2 REGIONS Impression: Tracie Farah is [...] icing. Ms. Farah to be treated initially /12 times. Treatment to focus o n re-establishing [...] the above note written by Chiropractic internet marketing specialist of our visit wit h this patient as recorded by Lane Reyes DC [facility] AT [address] Mail Code: Ch15p [place] [address] documented in this e ncounter Plan of Treatment Not on filedocumented as of this encounter Procedures + +--------+ + + + | Procedure Name | Priori | Date/Time | Associated Diagnosis | Comments | | | ty | | | | + +--------+ + + + | [place] CHIROPRAC | Routin | 07/10/2019 | Sacroiliac pain | | | EDEN CM,1-2 | e | 12:46 PM | Sacral [...]
--- OUTSIDE RECORDS SUMMARY | ~2020-08-23 | XMS | Encounter Summary ---
Demographics + + + | Address | [address] | | | [place] [address] | + + + | Home Phone [...] Team Providers + +------+ + | Care Phlebotomy Manager Name | Role | Phone | [...] | | | sympathetic | [place] | [address]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 | FAMILY | Mailstop | | | | | of lower | MEDICINE P | [id number] | | | | | limb | [address] | [place], [place] | | | | | | [place], | [address] | | | | | | [place] [address] | Phone: | | | | | | Phone: | [phone] | | | | | | [phone] | Fax: | | | | | | Fax: | [phone] | | | | | | [phone] | | +--------+--------+ + + + + Encounter Details +--------+---------+ + + + | Date | Type | Department | Care Team | Description | +--------+---------+ + + + | 09/04/ | Office | [facility] | Dale Cantu, | CRPS (complex | | 2011 | Visit | Pain Center at | [address] [facility] | regional pain | | | | [facility] | [facility] [id number] | syndrome), lower | | | | [address] | [place], [place] | limb; Gait | | | | [place] [facility] | [address] | disturbance; Sleep | | | | and Healing, | [phone] | disturbance, | | | | Building | | unspecified; | | | | Floor [place], [place] | | Adjustment reaction | | | | [address] | | | | | | [phone] | | | +--------+---------+ + + + [...] intravenous immunoglobulin infusion in CRPS patients (Loretta A, et al. Katrina Deck Engine Operator Med. 2010;152:152-158) . Bisphosphonate trial. Typically, [...] Abraham MD - 09/04/2012 7:45 AM PDT [facility] Return Visit with Dr. Dale Cantu 09/04/2012 Tracie Farah; ; : 1990 Chief Complaint Patient presents with Return Patient Buttock pain Hip pain Leg Pain Knee pain Foot pain History of Present Illness: Ms. Farah was last seen by me on 08/04/2012 in follow up of her spinal cord stimulator t . She is here today for a follow up visit. She has been treated at [email or web address] Pain C enter for CRPS pain with [...] and a pain drawing which I reviewed. [facility] Brief Pain Inventory: (ten= worst possible [...] Trial spinal cord stimulator leads 08/02/2012 [facility], Surgeon: Dale Cantu MD Family History [...] Review of Systems obtained by the [facility] was reviewed. Additional Review of Systems [...] of Pain: 13(1):17-21, 2008). DALE CANTU MD Can Carrier, [facility] Insurance Assistant, Pain Medicine Professor, Anesthesiology & Perioperative Medicine documented in this en counter Miscellaneous Notes Scan - Other, Faculty - 11/03/2012 11:59 AM PSTElectronically signed by Faculty Other at 11:59 AM PSTScan - Other, Faculty - 09/13/2012 9:23 AM PDT documented in this encounter Plan [...]
--- OUTSIDE RECORDS SUMMARY | ~2020-08-23 | XMS | Encounter Summary ---
Demographics + + + | Address | [address] | | | [place] [address] | + + + | Home Phone [...] Team Providers + +------+ + | Care Pasteurizing Supervisor Name | Role | Phone | + +------+ + | Justo Vazquez MD | PCP | | + +------+ + Encounter Details +--------+ + + + + | Date | Type | Department | Care Team | Description | +--------+ + + + + | 12/07/ | Bicycle Mechanic | [facility] at [facility] | Ava Carbajal | | | 2016 | | [place] [address] MD | | | | | [address] [facility] for | | | | | | Health and Healing, | | | | | | Building [address] | | | | | | [place], [place] | | | | | | [address] | | | | | | [phone] | | | +--------+ + + + [...]
--- OUTSIDE RECORDS SUMMARY | 2020-08-23 17:38 | XMS ---
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 No recent Security Events currently on file CRITERIA MET - Group Notification - 6 ED Visits in 6 Months - [facility] - Has Care Guidelines - PDMP - [facility] - 2 Visits in 30 Days CARE PROVIDERS MARCELINO PERRY Internal Medicine Current PHONE: [phone] Aron Hannah Anesthesiology: Pain Medicine 07/18/2018-Current PHONE: Unknown Guidelines Source: [facility] Guidelines Date: 08/22/2019 Care Recommendation: PATIENT HAS HISTORY COMPLEX REEGIONAL PAIN SYNDROME WELL CYCLICAL ABDOMINAL PAIN/NAUSEA/VOMITING.\T\nbsp; UNDER TREATMENT WITH ARON HANNAH MD PHD PAIN MANAGMENT [facility].\T\nbsp; FOLLOW THIS REGIMEN WHEN PRESENTING TO ED FOR RESOLUTION OF SYMPTOMS: *HYDRATION IV *HYDROMORPHONE 1MG IV * KETOROLAC 30 MG IV *PROMETHAZINE 25MG IV Additional care guidelines exist for the following facilities: [facility] ( 05/21/2019 ) Care History Medical/Surgical 08/18/2020 [facility] Patient reported need for IV pain medication and nausea medicine to PCP Dr. Perry on , but Dr. Perry out of Clinic.\T\nbsp; Patient adivised to go to ED with letter provided by Dr. Perry on 06/18/2020. 07/07/2020 [facility] Patient rescheduled 07/07/[address] Quach for 07/28/2020. 06/30/2020 [facility] Patient still scheduled to see Dr. Monahan on 07/03/[address] Quach on 07/07/2020 EAlexandru VISIT COUNT (12 MO.) 13 [facility]. TOTAL 13 NOTE: Visits indicate total known visits. ED/UCC VISIT TRACKING (12 MO.) 08/23/2020 17:35 [facility] [place] TYPE: Emergency COMPLAINT: - ABD PAIN, VOMITING 08/18/2020 15:53 [facility] [place] TYPE: Emergency COMPLAINT: - ABD PAIN, VOMITING DIAGNOSES: - Cyclical vomiting syndrome unrelated to migraine - Allergy status to narcotic agent status - Other [facility]p (current) drug therapy - Complex regional pain syndrome I of left lower limb - Cyclical vomiting syndrome unrelated to migraine - Allergy status to other drugs, medicaments and biological sub 08/14/2020 18:53 [facility] [place] TYPE: Emergency COMPLAINT: - ABDOMINAL PAIN, N/V DIAGNOSES: - Allergy status to other drugs, medicaments and biological sub - Other [facility] (current) drug therapy - Upper abdominal pain, unspecified - Allergy status to narcotic agent status - Allergy status to narcotic agent status - Allergy status to other drugs, medicaments and biological sub - Cyclical vomiting syndrome unrelated to migraine 08/12/2020 03:16 [facility] [place] TYPE: Emergency COMPLAINT: - ABDOMENAL PAIN,VOMITING DIAGNOSES: - Other m[facility]p (current) drug therapy - Vomiting, unspecified - Allergy status to narcotic agent status - Dehydration - Allergy status to other drugs, medicaments and biological sub - Generalized abdominal pain 07/04/2020 07:16 [facility] [place] TYPE: Emergency COMPLAINT: - NECK PAIN NON INJ DIAGNOSES: - Other m[facility]p (current) drug therapy - Allergy status to narcotic agent status - Torticollis - Cervicalgia - Allergy status to other drugs, medicaments and biological sub 06/28/2020 16:25 [facility] [place] TYPE: Emergency COMPLAINT: - VOMITING, ABD PAIN DIAGNOSES: - Other m[facility]p (current) drug therapy - Allergy status to narcotic agent status - Complex regional pain syndrome I of left lower limb - Elevated white blood cell count, unspecified - Unspecified abdominal pain - Epigastric pain 06/23/2020 16:57 [facility] [place] TYPE: Emergency COMPLAINT: - ABDOMINAL PAIN/VOMITING DIAGNOSES: - Allergy status to narcotic agent status - Other m[facility]p (current) drug therapy - Unspecified abdominal pain - Nausea with vomiting, unspecified 06/02/2020 15:35 [facility] [place] TYPE: Emergency COMPLAINT: - ABD PAIN, VOMITING DIAGNOSES: - Allergy status to other drugs, medicaments and biological sub - Unspecified abdominal pain - shelter (current) use of anticoagulants - Other m[facility]p (current) drug therapy - Allergy status to narcotic agent status 05/29/2020 19:40 [facility] [place] TYPE: Emergency COMPLAINT: - ABD PAIN,VOMITING DIAGNOSES: - Allergy status to narcotic agent status - Unspecified abdominal pain - Complex regional pain syndrome I of other specified site - Other [facility]p (current) drug therapy 05/26/2020 19:[address] [facility] [address] [facility] [place] TYPE: Emergency COMPLAINT: - ABDOMINAL PAIN/VOMITING DIAGNOSES: - Allergy status to narcotic agent status - Unspecified abdominal pain - Complex regional pain syndrome I of other specified site - Other intermediate card tender (current) drug therapy - Vomiting, unspecified - Unspecified abdominal pain 03/23/2020 06:39 [facility] [place] TYPE: Emergency COMPLAINT: - ABD PAIN, VOMITING 03/09/2020 13:21 [facility] [place] TYPE: Emergency COMPLAINT: - ABD PAIN, VOMITING DIAGNOSES: - Personal history of nicotine dependence - Complex regional pain syndrome I, unspecified - Allergy status to narcotic agent status - Other intermediate card tender (current) drug therapy - Nausea with vomiting, unspecified 03/05/2020 10:[address] [facility] [address] 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
== END 2020-08-23 21:29 | disposition home or self-care (01) ==
LOC: ED 17:35
DX: R11.15 Cyclical vomiting syndrome unrelated to migraine (principal); R10.9 Unspecified abdominal pain; Z88.8 Allergy status to other drugs, medicaments and biological substances; Z88.5 Allergy status to narcotic agent; Z79.899 Other long term (current) drug therapy
CPT/HCPCS: 80053; 83690; 85025; 96374; 96375; 99284-25; J1885; J2550; J7030

== ENCOUNTER 2020-09-20 11:35 | Emergency (ER) | payer MEDICARE, OTHER ==
[~2020-09-20] VITALS: Ht 165.1 cm; Wt 90.7 kg
--- OUTSIDE RECORDS SUMMARY | 2020-09-20 11:38 | XMS ---
PreManage Notification: BRODY LINCOLN Security Operator Prefinish Events No recent Security Events currently on file CRITERIA MET - Group Notification - 6 ED Visits in 6 Months - [facility] - Has Care Guidelines - [facility] - 2 Visits in 30 Days CARE PROVIDERS [facility] Internal Medicine Current PHONE: [phone] Aron Hannah Anesthesiology: Pain Medicine 07/18/2018-Current PHONE: Unknown Guidelines Source: [facility] Guidelines Date: 08/22/2019 Care Recommendation: PATIENT HAS HISTORY COMPLEX REEGIONAL PAIN SYNDROME WELL CYCLICAL ABDOMINAL PAIN/NAUSEA/VOMITING.\T\nbsp; UNDER TREATMENT WITH ARON HANNAH MD PHD PAIN MANAGMENT [facility].\T\nbsp; FOLLOW THIS REGIMEN WHEN PRESENTING TO ED FOR RESOLUTION OF SYMPTOMS: *HYDRATION IV *HYDROMORPHONE 1MG IV * KETOROLAC 30 MG IV *PROMETHAZINE 25MG IV Additional care guidelines exist for the following facilities: [facility] ( 05/21/2019 ) Care History Medical/Surgical 08/18/2020 [facility] Patient reported need for IV pain medication and nausea medicine to PCP Dr. Vazquez on , but Dr. Vazquez out of Clinic.\T\nbsp; Patient adivised to go to ED with letter provided by Dr. Vazquez on 06/18/2020. 07/07/2020 [facility] Patient rescheduled 07/07/[address] Quach for 07/28/2020. 06/30/2020 [facility] Patient still scheduled to see Dr. Monahan on 07/03/[address] Quach on 07/07/2020 E.Louise VISIT COUNT ([address] 14 [facility]. TOTAL 14 NOTE: Visits indicate total known visits. ED/UCC VISIT TRACKING (12 MO.) 09/20/2020 11:36 [facility] [place] TYPE: Emergency COMPLAINT: - ABDOMINAL PAIN 08/23/2020 17:35 [facility] [place] TYPE: Emergency COMPLAINT: - ABD PAIN, VOMITING DIAGNOSES: - Allergy status to other drugs, medicaments and biological substances - Allergy status to narcotic agent - Other predatory animal exterminator (current) drug therapy - Unspecified abdominal pain - Cyclical vomiting syndrome unrelated to migraine 08/18/2020 15:53 [facility] [place] TYPE: Emergency COMPLAINT: - ABD PAIN, VOMITING DIAGNOSES: - Cyclical vomiting syndrome unrelated to migraine - Allergy status to narcotic agent - Other predatory animal exterminator (current) drug therapy - Complex regional pain syndrome I of left lower limb - Cyclical vomiting syndrome unrelated to migraine - Allergy status to other drugs, medicaments and biological substances 08/14/2020 18:53 [facility] [place] TYPE: Emergency COMPLAINT: - ABDOMINAL PAIN, N/V DIAGNOSES: - Allergy status to other drugs, medicaments and biological substances - Other predatory animal exterminator (current) drug therapy - Upper abdominal pain, unspecified - Allergy status to narcotic agent - Allergy status to narcotic agent - Allergy status to other drugs, medicaments and biological substances - Cyclical vomiting syndrome unrelated to migraine 08/12/2020 03:16 [facility] [place] TYPE: Emergency COMPLAINT: - ABDOMENAL PAIN,VOMITING DIAGNOSES: - Other predatory animal exterminator (current) drug therapy - Vomiting, unspecified - Allergy status to narcotic agent - Dehydration - Allergy status to other drugs, medicaments and biological substances - Generalized abdominal pain 07/04/2020 07:16 [facility] [place] TYPE: Emergency COMPLAINT: - NECK PAIN NON INJ DIAGNOSES: - Other fpc (current) drug therapy - Allergy status to narcotic agent - Torticollis - Cervicalgia - Allergy status to other drugs, medicaments and biological substances 06/28/2020 16:25 [facility] [place] TYPE: Emergency COMPLAINT: - VOMITING, ABD PAIN DIAGNOSES: - Other predatory animal exterminator (current) drug therapy - Allergy status to narcotic agent - Complex regional pain syndrome I of left lower limb - Elevated white blood cell count, unspecified - Unspecified abdominal pain - Epigastric pain 06/23/2020 16:57 LE[facility] [place] TYPE: Emergency COMPLAINT: - ABDOMINAL PAIN/VOMITING DIAGNOSES: - Allergy status to narcotic agent - Other predatory animal exterminator (current) drug therapy - Unspecified abdominal pain - Nausea with vomiting, unspecified 06/02/2020 15:35 [facility] [place] TYPE: Emergency COMPLAINT: - ABD PAIN, VOMITING DIAGNOSES: - Allergy status to other drugs, medicaments and biological substances - Unspecified abdominal pain - penitentiary (current) use of anticoagulants - Other fpc (current) drug therapy - Allergy status to narcotic agent 05/29/2020 19:40 [facility] [place] TYPE: Emergency COMPLAINT: - ABD PAIN,VOMITING DIAGNOSES: - Allergy status to narcotic agent - Unspecified abdominal pain - Complex regional pain syndrome I of other specified site - Other predatory animal exterminator (current) drug therapy 05/26/2020 19:15 [facility] [place] TYPE: Emergency COMPLAINT: - ABDOMINAL PAIN/VOMITING DIAGNOSES: - Allergy status to narcotic agent - Unspecified abdominal pain - Complex regional pain syndrome I of other specified site - Other predatory animal exterminator (current) drug therapy - Vomiting, unspecified - Unspecified abdominal pain 03/23/2020 06:39 [facility] [place] TYPE: Emergency COMPLAINT: - ABD PAIN, VOMITING 03/09/2020 13:21 [facility] [place] TYPE: Emergency COMPLAINT: - ABD PAIN, VOMITING DIAGNOSES: - Personal history of nicotine dependence - Complex regional pain syndrome I, unspecified - Allergy status to narcotic agent - Other predatory animal exterminator (current) drug therapy - Nausea with vomiting, unspecified 03/05/2020 10:51 [facility] Davis [place] TYPE: Emergency COMPLAINT: - ABD PAIN, VOMITING DIAGNOSES: - Other predatory animal exterminator (current) drug therapy - Other chronic pain - Nicotine dependence, unspecified, uncomplicated - penitentiary (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 - Allergy status to other drugs, medicaments and biological substances - Cyclical vomiting syndrome unrelated to migraine - Unspecified abdominal pain - Allergy status to narcotic agent INPATIENT VISIT TRACKING (12 MO.) 03/23/2020 15:02 [facility] Davis [place] TYPE: Medical Surgical COMPLAINT: - BILATERAL PE DIAGNOSES: - director long term care (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 - Presence of (intrauterine) contraceptive device - Right upper quadrant pain - Complex regional pain syndrome I of left lower limb - Nonspecific elevation of levels of transaminase and lactic acid dehydrogenase [LDH] - Right upper quadrant pain - Interstitial cystitis (chronic) without hematuria - Complex regional pain syndrome I of left lower limb - Other fpc (current) drug therapy - Cyclical vomiting syndrome unrelated to migraine - Major depressive disorder, single episode, unspecified - Cyclical vomiting syndrome unrelated to migraine - director long term care (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 - Nonspecific elevation of levels of transaminase and lactic acid dehydrogenase [LDH] - Other pulmonary embolism without acute cor pulmonale - Allergy status to narcotic agent - Presence of (intrauterine) contraceptive device - Other fpc (current) drug therapy - Allergy status to narcotic agent - Major depressive disorder, single episode, unspecified - Opioid dependence, uncomplicated - Opioid dependence, uncomplicated - Interstitial cystitis (chronic) without hematuria [email or web address]
[2020-09-20] MEDS ORDERED: REXULTI1 MG PO (14:18)
[2020-09-20] MEDS ORDERED: SUCRALFATE1 GM PO (14:21)
[2020-09-20] MEDS ORDERED: CYMBALTA30 MG PO (14:25)
== END 2020-09-20 14:51 | disposition home or self-care (01) ==
LOC: ED 11:35
DX: R10.9 Unspecified abdominal pain (principal); R11.10 Vomiting, unspecified; G90.50 Complex regional pain syndrome I, unspecified; Z88.5 Allergy status to narcotic agent; Z88.8 Allergy status to other drugs, medicaments and biological substances; Z79.899 Other long term (current) drug therapy
CPT/HCPCS: 96374; 96375; 99283-25; J1885; J2550

== ENCOUNTER 2020-09-25 15:19 | Emergency (ER) | payer MEDICARE, OTHER ==
[~2020-09-25] VITALS: Ht 165.1 cm; Wt 90.7 kg
[~2020-09-25 15:19] MED LIST changes: +REXULTI1 MG PO; +SUCRALFATE1 GM PO
--- OUTSIDE RECORDS SUMMARY | 2020-09-25 15:22 | XMS ---
PreManage Notification: BRODY LINCOLN Security Clinical Unit Educator Events No recent Security Events currently on file CRITERIA MET - Group Notification - 6 ED Visits in 6 Months - [facility] - Has Care Guidelines - PDMP - [facility] - 2 Visits in 30 Days CARE PROVIDERS MARCELINO PERRY Internal Medicine Current PHONE: [phone] Aron Hannah Anesthesiology: Pain Medicine 07/18/2018-Current PHONE: Unknown Guidelines Source: [facility] Guidelines Date: 08/22/2019 Care Recommendation: PATIENT HAS HISTORY COMPLEX REEGIONAL PAIN SYNDROME WELL CYCLICAL ABDOMINAL PAIN/NAUSEA/VOMITING.\T\nbsp; UNDER TREATMENT WITH ARON HANNAH MD PHD PAIN MANAGMENT [facility].\T\nbsp; FOLLOW THIS REGIMEN WHEN PRESENTING TO ED FOR RESOLUTION OF SYMPTOMS: *HYDRATION IV *HYDROMORPHONE 1MG IV * KETOROLAC 30 MG IV *PROMETHAZINE 25MG IV Additional care guidelines exist for the following facilities: [facility] ( 05/21/2019 ) Care History Medical/Surgical 09/22/2020 [facility] As of 08/28/2020 patient has standing order for Rx - Phenergan and Toradol, per Dr. Perry. 08/18/2020 [facility] Patient reported need for IV pain medication and nausea medicine to PCP Dr. Perry on , but Dr. Perry out of Clinic.\T\nbsp; Patient adivised to go to ED with letter provided by Dr. Perry on 06/18/2020. 07/07/2020 [facility] Patient rescheduled 07/07/[address] Quach for 07/28/2020. E.D. VISIT COUNT (12 MO.) 15 [facility] H. TOTAL 15 NOTE: Visits indicate total known visits. ED/UCC VISIT TRACKING (12 MO.) 09/25/2020 15:19 [facility] [place] TYPE: Emergency COMPLAINT: - ABD PAIN, NAUSEA, VOMITING 09/20/2020 11:36 [facility] Davis [place] TYPE: Emergency COMPLAINT: - ABDOMINAL PAIN DIAGNOSES: - Unspecified abdominal pain - Complex regional pain syndrome I, unspecified - Other detention (current) drug therapy - Vomiting, unspecified - Allergy status to narcotic agent - Allergy status to other drugs, medicaments and biological substances 08/23/2020 17:35 LE[facility] Davis [place] TYPE: Emergency COMPLAINT: - ABD PAIN, VOMITING DIAGNOSES: - Allergy status to other drugs, medicaments and biological substances - Allergy status to narcotic agent - Other detention (current) drug therapy - Unspecified abdominal pain - Cyclical vomiting syndrome unrelated to migraine 08/18/2020 15:53 [facility] [place] TYPE: Emergency COMPLAINT: - ABD PAIN, VOMITING DIAGNOSES: - Cyclical vomiting syndrome unrelated to migraine - Allergy status to narcotic agent - Other detention (current) drug therapy - Complex regional pain syndrome I of left lower limb - Cyclical vomiting syndrome unrelated to migraine - Allergy status to other drugs, medicaments and biological substances 08/14/2020 18:53 [facility] [place] TYPE: Emergency COMPLAINT: - ABDOMINAL PAIN, N/V DIAGNOSES: - Allergy status to other drugs, medicaments and biological substances - Other extermination inspector (current) drug therapy - Upper abdominal pain, unspecified - Allergy status to narcotic agent - Allergy status to narcotic agent - Allergy status to other drugs, medicaments and biological substances - Cyclical vomiting syndrome unrelated to migraine 08/12/2020 03:16 [facility] [place] TYPE: Emergency COMPLAINT: - ABDOMENAL PAIN,VOMITING DIAGNOSES: - Other detention (current) drug therapy - Vomiting, unspecified - Allergy status to narcotic agent - Dehydration - Allergy status to other drugs, medicaments and biological substances - Generalized abdominal pain 07/04/2020 07:16 [facility] [place] TYPE: Emergency COMPLAINT: - NECK PAIN NON INJ DIAGNOSES: - Other detention (current) drug therapy - Allergy status to narcotic agent - Torticollis - Cervicalgia - Allergy status to other drugs, medicaments and biological substances 06/28/2020 16:25 [facility] [place] TYPE: Emergency COMPLAINT: - VOMITING, ABD PAIN DIAGNOSES: - Other extermination inspector (current) drug therapy - Allergy status to narcotic agent - Complex regional pain syndrome I of left lower limb - Elevated white blood cell count, unspecified - Unspecified abdominal pain - Epigastric pain 06/23/2020 16:57 [facility] Davis [place] TYPE: Emergency COMPLAINT: - ABDOMINAL PAIN/VOMITING DIAGNOSES: - Allergy status to narcotic agent - Other detention (current) drug therapy - Unspecified abdominal pain - Nausea with vomiting, unspecified 06/02/2020 15:35 [facility] Maur[facility]ant[facility] [place] TYPE: Emergency COMPLAINT: - ABD PAIN, VOMITING DIAGNOSES: - Allergy status to other drugs, medicaments and biological substances - Unspecified abdominal pain - terminologist (current) use of anticoagulants - Other extermination inspector (current) drug therapy - Allergy status to narcotic agent 05/29/2020 19:40 [facility] [place] TYPE: Emergency COMPLAINT: - ABD PAIN,VOMITING DIAGNOSES: - Allergy status to narcotic agent - Unspecified abdominal pain - Complex regional pain syndrome I of other specified site - Other detention (current) drug therapy 05/26/2020 19:15 [facility] [place] TYPE: Emergency COMPLAINT: - ABDOMINAL PAIN/VOMITING DIAGNOSES: - Allergy status to narcotic agent - Unspecified abdominal pain - Complex regional pain syndrome I of other specified site - Other extermination inspector (current) drug therapy - Vomiting, unspecified - Unspecified abdominal pain 03/23/2020 06:39 [facility] [place] TYPE: Emergency COMPLAINT: - ABD PAIN, VOMITING 03/09/2020 13:21 [facility] [place] TYPE: Emergency COMPLAINT: - ABD PAIN, VOMITING DIAGNOSES: - Personal history of nicotine dependence - Complex regional pain syndrome I, unspecified - Allergy status to narcotic agent - Other extermination inspector (current) drug therapy - Nausea with vomiting, unspecified 03/05/2020 10:51 [facility] [place] TYPE: Emergency COMPLAINT: - ABD PAIN, VOMITING DIAGNOSES: - Other detention (current) drug therapy - Other chronic pain - Nicotine dependence, unspecified, uncomplicated - terminologist (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 - Allergy status to other drugs, medicaments and biological substances - Cyclical vomiting syndrome unrelated to migraine - Unspecified abdominal pain - Allergy status to narcotic agent INPATIENT VISIT TRACKING (12 MO.) 03/23/2020 15:[address] [facility] [address] [facility] [place] TYPE: Medical Surgical COMPLAINT: - BILATERAL PE DIAGNOSES: - terminologist (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 - Presence of (intrauterine) contraceptive device - Right upper quadrant pain - Complex regional pain syndrome I of left lower limb - Nonspecific elevation of levels of transaminase and lactic acid dehydrogenase [LDH] - Right upper quadrant pain - Interstitial cystitis (chronic) without hematuria - Complex regional pain syndrome I of left lower limb - Other extermination inspector (current) drug therapy - Cyclical vomiting syndrome unrelated to migraine - Major depressive disorder, single episode, unspecified - Cyclical vomiting syndrome unrelated to migraine - terminologist (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 - Nonspecific [...] uncomplicated - Interstitial cystitis (chronic) without hematuria [email or web address]
== END 2020-09-25 17:41 | disposition home or self-care (01) ==
LOC: ED 15:19
DX: R10.84 Generalized abdominal pain (principal); Z88.5 Allergy status to narcotic agent; Z88.8 Allergy status to other drugs, medicaments and biological substances; Z79.899 Other long term (current) drug therapy
CPT/HCPCS: 80053; 81001; 83690; 84703; 85025; 96374; 96375; 99284-25; J1885; J2550; J7030

== ENCOUNTER 2020-10-15 15:53 | Emergency (ER) | payer MEDICARE, OTHER ==
[~2020-10-15] VITALS: Ht 165.1 cm; Wt 90.7 kg
--- OUTSIDE RECORDS SUMMARY | 2020-10-15 15:56 | XMS ---
PreManage Notification: BRODY LINCOLN Security Executive Secretary Events No recent Security Events currently on file CRITERIA MET - Group Notification - 6 ED Visits in 6 Months - [facility] - Has Care Guidelines - PDMP - [facility] - 2 Visits in 30 Days CARE PROVIDERS MARCELINO PERRY Internal Medicine Current PHONE: [phone] Aron Hannah Anesthesiology: Pain Medicine 07/18/2018-Current PHONE: Unknown Guidelines Source: [facility] Guidelines Date: 08/22/2019 Care Recommendation: PATIENT HAS HISTORY COMPLEX REEGIONAL PAIN SYNDROME WELL CYCLICAL ABDOMINAL PAIN/NAUSEA/VOMITING.\T\nbsp; UNDER TREATMENT WITH ARON HANNAH MD PHD PAIN MANAGMENT [facility].\T\nbsp; FOLLOW THIS REGIMEN WHEN PRESENTING TO ED FOR RESOLUTION OF SYMPTOMS: *HYDRATION IV *HYDROMORPHONE 1MG IV * KETOROLAC 30 MG IV *PROMETHAZINE 25MG IV Additional care guidelines exist for the following facilities: [facility] ( 05/21/2019 ) Care History Medical/Surgical 09/22/2020 [facility] As of 08/28/2020 patient has standing order for Rx - Phenergan and Toradol, per Dr. Perry. 08/18/2020 [facility] Patient reported need for IV pain medication and nausea medicine to PCP Dr. Perry on , but Dr. Perry out of Clinic.\T\nbsp; Patient adivised to go to ED with letter provided by Dr. Perry on 06/18/2020. 07/07/2020 [facility] Patient rescheduled 07/07/[address] Quach for 07/28/2020. E.D. VISIT COUNT (12 MO.) 16 [facility] H. TOTAL 16 NOTE: Visits indicate total known visits. ED/UCC VISIT TRACKING (12 MO.) 10/15/2020 15:54 [facility] [place] TYPE: Emergency COMPLAINT: - ABDOMINAL PAIN/VOMITING 09/25/2020 15:19 [facility] [place] TYPE: Emergency COMPLAINT: - ABD PAIN, NAUSEA, VOMITING DIAGNOSES: - Unspecified abdominal pain - Generalized abdominal pain - Allergy status to narcotic agent - Other half-way (current) drug therapy - Allergy status to other drugs, medicaments and biological substances 09/20/2020 11:36 [facility] Davis [place] TYPE: Emergency COMPLAINT: - ABDOMINAL PAIN DIAGNOSES: - Unspecified abdominal pain - Complex regional pain syndrome I, unspecified - Other half-way (current) drug therapy - Vomiting, unspecified - Allergy status to narcotic agent - Allergy status to other drugs, medicaments and biological substances 08/23/2020 17:[address] [facility] [address] [facility] [place] TYPE: Emergency COMPLAINT: - ABD PAIN, VOMITING DIAGNOSES: - Allergy status to other drugs, medicaments and biological substances - Allergy status to narcotic agent - Other terminal block assembler (current) drug therapy - Unspecified abdominal pain - Cyclical vomiting syndrome unrelated to migraine 08/18/2020 15:[address] [facility] [address] [facility] [place] TYPE: Emergency COMPLAINT: - ABD PAIN, VOMITING DIAGNOSES: - Cyclical vomiting syndrome unrelated to migraine - Allergy status to narcotic agent - Other terminal block assembler (current) drug therapy - Complex regional pain syndrome I of left lower limb - Cyclical vomiting syndrome unrelated to migraine - Allergy status to other drugs, medicaments and biological substances [facility]2020 [facility] [place] [facility] COMPLAINT: - ABDOMINAL PAIN, N/V DIAGNOSES: - Allergy status to other drugs, medicaments and biological substances - Other half-way (current) drug therapy - Upper abdominal pain, unspecified - Allergy status to narcotic agent - Allergy status to narcotic agent - Allergy status to other drugs, medicaments and biological substances - Cyclical vomiting syndrome unrelated to migraine 08/12/2020 03:16 [facility] [place] TYPE: Emergency COMPLAINT: - ABDOMENAL PAIN,VOMITING DIAGNOSES: - Other terminal block assembler (current) drug therapy - Vomiting, unspecified - Allergy status to narcotic agent - Dehydration - Allergy status to other drugs, medicaments and biological substances - Generalized abdominal pain 07/04/2020 07:16 [facility] [place] TYPE: Emergency COMPLAINT: - NECK PAIN NON INJ DIAGNOSES: - Other half-way (current) drug therapy - Allergy status to narcotic agent - Torticollis - Cervicalgia - Allergy status to other drugs, medicaments and biological substances 06/28/2020 16:25 [facility] [place] TYPE: Emergency COMPLAINT: - VOMITING, ABD PAIN DIAGNOSES: - Other terminal block assembler (current) drug therapy - Allergy status to narcotic agent - Complex regional pain syndrome I of left lower limb - Elevated white blood cell count, unspecified - Unspecified abdominal pain - Epigastric pain 06/23/2020 16:57 [facility] [place] [facility] [place] TYPE: Emergency COMPLAINT: - ABDOMINAL PAIN/VOMITING DIAGNOSES: - Allergy status to narcotic agent - Other terminal block assembler (current) drug therapy - Unspecified abdominal pain - Nausea with vomiting, unspecified 06/02/2020 15:[address] [facility] [address] [facility] [place] TYPE: Emergency COMPLAINT: - ABD PAIN, VOMITING DIAGNOSES: - Allergy status to other drugs, medicaments and biological substances - Unspecified abdominal pain - custodial (current) use of anticoagulants - Other half-way (current) drug therapy - Allergy status to narcotic agent 05/29/2020 19:40 [facility] [place] [facility] COMPLAINT: - ABD PAIN,VOMITING DIAGNOSES: - Allergy status to narcotic agent - Unspecified abdominal pain - Complex regional pain syndrome I of other specified site - Other half-way (current) drug therapy 05/26/2020 19:[address] [facility] [address] [facility] [place] TYPE: Emergency COMPLAINT: - ABDOMINAL PAIN/VOMITING DIAGNOSES: - Allergy status to narcotic agent - Unspecified abdominal pain - Complex regional pain syndrome I of other specified site - Other half-way (current) drug therapy - Vomiting, unspecified - Unspecified abdominal pain 03/23/2020 06:39 [facility] [place] TYPE: Emergency COMPLAINT: - ABD PAIN, VOMITING 03/09/2020 13:21 [facility] [place] TYPE: Emergency COMPLAINT: - ABD PAIN, VOMITING DIAGNOSES: - Personal history of nicotine dependence - Complex regional pain syndrome I, unspecified - Allergy status to narcotic agent - Other terminal block assembler (current) drug therapy - Nausea with vomiting, unspecified 03/05/2020 10:51 [facility] [place] TYPE: Emergency COMPLAINT: - ABD PAIN, VOMITING DIAGNOSES: - Other terminal block assembler (current) drug therapy - Other chronic pain [...] Surgical COMPLAINT: - BILATERAL PE DIAGNOSES: - remote computer terminal operator (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 - Presence of (intrauterine) contraceptive device - Right upper quadrant pain - Complex regional pain syndrome I of left lower limb - Nonspecific elevation of levels of transaminase and lactic acid dehydrogenase [LDH] - Right upper quadrant pain - Interstitial cystitis (chronic) without hematuria - Complex regional pain syndrome I of left lower limb - Other terminal block assembler (current) drug therapy - Cyclical vomiting syndrome unrelated to migraine - Major depressive disorder, single episode, unspecified - Cyclical vomiting syndrome unrelated to migraine - custodial (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 - Nonspecific elevation of levels of transaminase and lactic acid dehydrogenase [LDH] - Other pulmonary embolism without acute cor pulmonale - Allergy status to narcotic agent - Presence of (intrauterine) contraceptive device - Other half-way (current) drug therapy - Allergy status to narcotic agent - Major depressive disorder, single episode, unspecified - Opioid dependence, uncomplicated - Opioid dependence, uncomplicated - Interstitial cystitis (chronic) without hematuria [email or web address]
== END 2020-10-15 20:02 | disposition home or self-care (01) ==
LOC: ED 15:53
DX: R10.9 Unspecified abdominal pain (principal); R11.0 Nausea; G90.522 Complex regional pain syndrome I of left lower limb; Z88.5 Allergy status to narcotic agent; Z88.8 Allergy status to other drugs, medicaments and biological substances; Z79.899 Other long term (current) drug therapy
CPT/HCPCS: 81001; 96374; 96375; 99284-25; J1885; J2550; J7030

== ENCOUNTER 2020-11-10 07:30 | Day surgery (SDC) | payer MEDICARE, OTHER ==
[~2020-11-10] VITALS: Ht 165.1 cm; Wt 90.9 kg
--- NOTE | 2020-11-10 14:11 | OR ---
[facility] [address], [place] [address] Signed DATE OF OPERATION: 11/10/2020 SURGEON: Kamlesh Spence MD PREOPERATIVE DIAGNOSIS: Interstitial cystitis. POSTOPERATIVE DIAGNOSIS: Interstitial cystitis. NAMES OF PROCEDURES: Cystoscopy with hydrodistention. ANESTHESIA: MAC. ESTIMATED BLOOD LOSS: None. COMPLICATIONS: None. DRAINS: None. SPECIMENS: None. INDICATIONS FOR PROCEDURE: Brody is a very pleasant 30-year-old female with moderate to severe interstitial cystitis, who is well known to me. She is currently managing her IC symptoms with p.r.n. Uribel and q.3 months cystoscopy with hydrodistention treatments. She presents today for yet another routine hydrodistention. OPERATIVE FINDINGS: On cystoscopy, there was no evidence of any suspicious masses, lesions, or stones. Bilateral ureteral orifices are in their normal anatomic location effluxing clear urine. As per usual, her bladder is noncompliant and is ejecting irrigation fluid as quickly as I can instill into the bladder. She also is noted to have some areas of old bladder contracture within her bladder, particularly along the posterior wall of the bladder. Electronically Signed By: KAMLESH SPENCE MD 11/10/20 1411 PATIENT NAME: BRODY LINCOLN OPERATIVE REPORT DATE OF : [birth year] REPORT #: [id number] PHYSICIAN: KAMLESH SPENCE MD PCP: MARCELINO PERRY MD REPORT IS CONFIDENTIAL AND NOT TO BE RELEASED WITHOUT AUTHORIZATION [facility] [address], [place] [address] Signed The patient's bladder held approximately a maximum of 400 mL of irrigation fluid during the hydrodistention, which lasted around 9 minutes. DESCRIPTION OF PROCEDURE: After informed consent was obtained, the patient was taken back to the operating room. She was transferred from the [facility] to the operating room table, where MAC anesthesia was induced. She was placed in the dorsal lithotomy position and genitalia were prepped and draped in a standard sterile fashion. Using a 30-degree lens on a 22.5-Bulgarian introducer, a rigid cystoscope was inserted through the urethra and into her bladder under direct visualization. Panendoscopic views of the bladder then obtained. Please see above findings. The patient's bladder was initially completely drained of all urine. It was then filled with irrigation and distended to a volume of approximately 400 mL for a total of 9 minutes. Throughout the distention, the patient's bladder continued to drain irrigation fluid as it has in the past. I was therefore forced to continuously fill the patient's bladder during the entire hydrodistention time. Once the patient's bladder had been filled with fluid for 9 minutes, she was drained of approximately 400 mL of irrigation fluid. Repeat cystoscopy was performed to ensure there was no active hemorrhage of the bladder wall, which I did not appreciate. The patient's bladder was then drained again and the cystoscope was removed. The procedure was then terminated. The patient tolerated the procedure well without any complication. She will now be transferred to the postanesthesia care unit in stable condition. DISPOSITION: The patient will be discharged to home later today when she awakes from anesthesia. Per her request, she was given oxycodone 10 mg one tablet p.o. q.4 to 6 hours p.r.n. pain, dispense #40, along with Diflucan 150 mg p.o. once for antibiotic-associated yeast infection. I also told her that she must take her Cipro 500 mg p.o. b.i.d. for a total of 5 days after her procedure. She will be scheduled return to clinic in late January 2021 to fill out paperwork in preparation for her next hydrodistention. Kamlesh Spence MD AR/MODL /[id number] Electronically Signed By: KAMLESH SPENCE MD 11/10/20 1411 PATIENT NAME: BRODY LINCOLN OPERATIVE REPORT DATE OF : [birth year] REPORT #: [id number] PHYSICIAN: KAMLESH SPENCE MD PCP: MARCELINO PERRY MD REPORT IS CONFIDENTIAL AND NOT TO BE RELEASED WITHOUT AUTHORIZATION [facility] [address] [place] [id number] Signed Copies: ~ Electronically Signed By: KAMLESH SPENCE MD 11/10/20 1411 PATIENT NAME: BRODY LINCOLN OPERATIVE REPORT DATE OF : [birth year] REPORT #: [id number] PHYSICIAN: KAMLESH SPENCE MD PCP: MARCELINO PERRY MD REPORT IS CONFIDENTIAL AND NOT TO BE RELEASED WITHOUT AUTHORIZATION
== END 2020-11-10 13:10 | disposition home or self-care (01) ==
LOC: OPS 07:30 → DS 07:30 → OPS 09:00
PROVIDERS: ATTEND Urology
PROC: 0T7B8ZZ Dilation of Bladder, Via Natural or Artificial Opening Endoscopic (ICD-10-PCS; principal; 2020-11-10 09:00)
DX: N30.10 Interstitial cystitis (chronic) without hematuria (principal); N32.89 Other specified disorders of bladder; K21.9 Gastro-esophageal reflux disease without esophagitis; F51.04 Psychophysiologic insomnia; Z79.82 Long term (current) use of aspirin; Z79.899 Other long term (current) drug therapy; Z86.19 Personal history of other infectious and parasitic diseases; Z86.711 Personal history of pulmonary embolism; Z79.1 Long term (current) use of non-steroidal anti-inflammatories (NSAID); Z97.5 Presence of (intrauterine) contraceptive device; Z88.5 Allergy status to narcotic agent; Z88.8 Allergy status to other drugs, medicaments and biological substances
CPT/HCPCS: 00910; J0131; J0690; J1100; J1170; J2001; J2250; J2405; J2704; J3010; J7121

== ENCOUNTER 2020-11-16 10:18 | Emergency (ER) | payer MEDICARE, OTHER ==
[~2020-11-16] VITALS: Ht 165.1 cm; Wt 99.8 kg
--- OUTSIDE RECORDS SUMMARY | 2020-11-16 10:20 | XMS ---
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 No recent Security Events currently on file CRITERIA MET - Group Notification - 6 ED Visits in 6 Months - [facility] - Has Care Guidelines - PDMP CARE PROVIDERS [facility] Internal Medicine Current PHONE: [phone] Aron Hannah Anesthesiology: Pain Medicine 07/18/2018-Current PHONE: Unknown Guidelines Source: [facility] Guidelines Date: 08/22/2019 Care Recommendation: PATIENT HAS HISTORY COMPLEX REEGIONAL PAIN SYNDROME WELL CYCLICAL ABDOMINAL PAIN/NAUSEA/VOMITING.\T\nbsp; UNDER TREATMENT WITH ARON HANNAH MD PHD PAIN MANAGMENT [facility].\T\nbsp; FOLLOW THIS REGIMEN WHEN PRESENTING TO ED FOR RESOLUTION OF SYMPTOMS: *HYDRATION IV *HYDROMORPHONE 1MG IV * KETOROLAC 30 MG IV *PROMETHAZINE 25MG IV Additional care guidelines exist for the following facilities: [facility] ( 05/21/2019 ) Care History Medical/Surgical 09/22/2020 [facility] As of 08/28/2020 patient has standing order for Rx - Phenergan and Toradol, per Dr. Vazquez. 08/18/2020 [facility] Patient reported need for IV pain medication and nausea medicine to PCP Dr. Vazquez on , but Dr. Vazquez out of Clinic.\T\nbsp; Patient adivised to go to ED with letter provided by Dr. Vazquez on 06/18/2020. 07/07/2020 [facility] Patient rescheduled 07/07/[address] Quach for 07/28/2020. E.D. VISIT COUNT (12 MO.) 17 [facility]. TOTAL 17 NOTE: Visits indicate total known visits. ED/UCC VISIT TRACKING (12 MO.) 11/16/2020 10:18 [facility] [place] TYPE: Emergency COMPLAINT: - VOMITING, ABD PAIN 10/15/2020 15:54 [facility] [place] TYPE: Emergency COMPLAINT: - ABDOMINAL PAIN/VOMITING DIAGNOSES: - Unspecified abdominal pain - Allergy status to other drugs, medicaments and biological substances - Complex regional pain syndrome I of left lower limb - Other fdc (current) drug therapy - Allergy status to narcotic agent - Nausea 09/25/2020 15:19 [facility] [place] TYPE: Emergency COMPLAINT: - ABD PAIN, NAUSEA, VOMITING DIAGNOSES: - Unspecified abdominal pain - Generalized abdominal pain - Allergy status to narcotic agent - Other fdc (current) drug therapy - Allergy status to other drugs, medicaments and biological substances 09/20/2020 11:36 [facility] [place] [facility] [place] TYPE: Emergency COMPLAINT: - ABDOMINAL PAIN DIAGNOSES: - Unspecified abdominal pain - Complex regional pain syndrome I, unspecified - Other fdc (current) drug therapy - Vomiting, unspecified - Allergy status to narcotic agent - Allergy status to other drugs, medicaments and biological substances 08/23/2020 17:35 [facility] [place] [facility] [place] TYPE: Emergency COMPLAINT: - ABD PAIN, VOMITING DIAGNOSES: - Allergy status to other drugs, medicaments and biological substances - Allergy status to narcotic agent - Other rodent exterminator (current) drug therapy - Unspecified abdominal pain - Cyclical vomiting syndrome unrelated to migraine 08/18/2020 15:53 [facility] [facility] [place] TYPE: Emergency COMPLAINT: - ABD PAIN, VOMITING DIAGNOSES: - Cyclical vomiting syndrome unrelated to migraine - Allergy status to narcotic agent - Other rodent exterminator (current) drug therapy - Complex regional pain syndrome I of left lower limb - Cyclical vomiting syndrome unrelated to migraine - Allergy status to other drugs, medicaments and biological substances 08/14/2020 18:53 [facility] [place] [facility] [place] TYPE: Emergency COMPLAINT: - ABDOMINAL PAIN, N/V DIAGNOSES: - Allergy status to other drugs, medicaments and biological substances - Other rodent exterminator (current) drug therapy - Upper abdominal pain, unspecified - Allergy status to narcotic agent - Allergy status to narcotic agent - Allergy status to other drugs, medicaments and biological substances - Cyclical vomiting syndrome unrelated to migraine 08/12/2020 03:16 [facility] [place] TYPE: Emergency COMPLAINT: - ABDOMENAL PAIN,VOMITING DIAGNOSES: - Other fdc (current) drug therapy - Vomiting, unspecified - Allergy status to narcotic agent - Dehydration - Allergy status to other drugs, medicaments and biological substances - Generalized abdominal pain 07/04/2020 07:16 [facility] [place] TYPE: Emergency COMPLAINT: - NECK PAIN NON INJ DIAGNOSES: - Other fdc (current) drug therapy - Allergy status to narcotic agent - Torticollis - Cervicalgia - Allergy status to other drugs, medicaments and biological substances 06/28/2020 16:25 [facility] [place] TYPE: Emergency COMPLAINT: - VOMITING, ABD PAIN DIAGNOSES: - Other rodent exterminator (current) drug therapy - Allergy status to narcotic agent - Complex regional pain syndrome I of left lower limb - Elevated white blood cell count, unspecified - Unspecified abdominal pain - Epigastric pain [facility]2020 [facility] [place] [facility] COMPLAINT: - ABDOMINAL PAIN/VOMITING DIAGNOSES: - Allergy status to narcotic agent - Other rodent exterminator (current) drug therapy - Unspecified abdominal pain - Nausea with vomiting, unspecified 06/02/2020 15:35 [facility] [place] TYPE: Emergency COMPLAINT: - ABD PAIN, VOMITING DIAGNOSES: - Allergy status to other drugs, medicaments and biological substances - Unspecified abdominal pain - intermediate project manager (current) use of anticoagulants - Other rodent exterminator (current) drug therapy - Allergy status to narcotic agent 05/29/2020 19:40 [facility] [place] TYPE: Emergency COMPLAINT: - ABD PAIN,VOMITING DIAGNOSES: - Allergy status to narcotic agent - Unspecified abdominal pain - Complex regional pain syndrome I of other specified site - Other rodent exterminator (current) drug therapy 05/26/2020 19:15 [facility] [place] TYPE: Emergency COMPLAINT: - ABDOMINAL PAIN/VOMITING DIAGNOSES: - Allergy status to narcotic agent - Unspecified abdominal pain - Complex regional pain syndrome I of other specified site - Other fdc (current) drug therapy - Vomiting, unspecified - Unspecified abdominal pain 03/23/2020 06:39 [facility] [place] TYPE: Emergency COMPLAINT: - ABD PAIN, VOMITING 03/09/2020 13:21 [facility] [place] TYPE: Emergency COMPLAINT: - ABD PAIN, VOMITING DIAGNOSES: - Personal history of nicotine dependence - Complex regional pain syndrome I, unspecified - Allergy status to narcotic agent - Other fdc (current) drug therapy - Nausea with vomiting, unspecified 03/05/2020 10:51 [facility] [place] TYPE: Emergency COMPLAINT: - ABD PAIN, VOMITING DIAGNOSES: - Other rodent exterminator (current) drug therapy - Other chronic pain - Nicotine dependence, unspecified, uncomplicated - retirement (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 - Allergy status to other drugs, medicaments and biological substances - Cyclical vomiting syndrome unrelated to migraine - Unspecified abdominal pain - Allergy status to narcotic agent INPATIENT VISIT TRACKING (12 MO.) 03/23/2020 15:02 [facility] [place] TYPE: Medical Surgical COMPLAINT: - BILATERAL PE DIAGNOSES: - retirement (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 - Presence of (intrauterine) contraceptive device - Right upper quadrant pain - Complex regional pain syndrome I of left lower limb - Nonspecific elevation of levels of transaminase and lactic acid dehydrogenase [LDH] - Right upper quadrant pain - Interstitial cystitis (chronic) without hematuria - Complex regional pain syndrome I of left lower limb - Other rodent exterminator (current) drug therapy - Cyclical vomiting syndrome unrelated to migraine - Major depressive disorder, single episode, unspecified - Cyclical vomiting syndrome unrelated to migraine - intermediate project manager (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 - Nonspecific elevation of levels of transaminase and lactic acid dehydrogenase [LDH] - Other pulmonary embolism without acute cor pulmonale - Allergy status to narcotic agent - Presence of (intrauterine) contraceptive device - Other rodent exterminator (current) drug therapy - Allergy status to narcotic agent - Major depressive disorder, single episode, unspecified - Opioid dependence, uncomplicated - Opioid dependence, uncomplicated - Interstitial cystitis (chronic) without hematuria [email or web address]
== END 2020-11-16 15:48 | disposition home or self-care (01) ==
LOC: ED 10:18
DX: N30.10 Interstitial cystitis (chronic) without hematuria (principal); G90.522 Complex regional pain syndrome I of left lower limb; Z88.5 Allergy status to narcotic agent; Z88.8 Allergy status to other drugs, medicaments and biological substances; Z79.899 Other long term (current) drug therapy
CPT/HCPCS: 96374; 96375; 99283-25; J1885; J2550; J7030

== ENCOUNTER 2020-11-29 18:31 | Emergency (ER) | payer MEDICARE, OTHER ==
[~2020-11-29] VITALS: Ht 165.1 cm; Wt 97.5 kg
--- OUTSIDE RECORDS SUMMARY | 2020-11-29 18:34 | XMS ---
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 No recent Security Events currently on file CRITERIA MET - Group Notification - 6 ED Visits in 6 Months - [facility] - Has Care Guidelines - PDMP - [facility] - 2 Visits in 30 Days CARE PROVIDERS MARCELINO PERRY Internal Medicine Current PHONE: [phone] Aron Hannah Anesthesiology: Pain Medicine 07/18/2018-Current PHONE: Unknown Guidelines Source: [facility] Guidelines Date: 08/22/2019 Care Recommendation: PATIENT HAS HISTORY COMPLEX REEGIONAL PAIN SYNDROME WELL CYCLICAL ABDOMINAL PAIN/NAUSEA/VOMITING.\T\nbsp; UNDER TREATMENT WITH RAON HANNAH MD PHD PAIN MANAGMENT [facility].\T\nbsp; FOLLOW THIS REGIMEN WHEN PRESENTING TO ED FOR RESOLUTION OF SYMPTOMS: *HYDRATION IV *HYDROMORPHONE 1MG IV * KETOROLAC 30 MG IV *PROMETHAZINE 25MG IV Additional care guidelines exist for the following facilities: [facility] ( 05/21/2019 ) Care History Medical/Surgical 09/22/2020 [facility] As of 08/28/2020 patient has standing order for Rx - Phenergan and Toradol, per Dr. Perry. 08/18/2020 [facility] Patient reported need for IV pain medication and nausea medicine to PCP Dr. Perry on , but Dr. Perry out of Clinic.\T\nbsp; Patient adivised to go to ED with letter provided by Dr. Perry on 06/18/2020. 07/07/2020 [facility] Patient rescheduled 07/07/[address] Quach for 07/28/2020. E.D. VISIT COUNT (12 MO.) 18 [facility]. TOTAL 18 NOTE: Visits indicate total known visits. ED/UCC VISIT TRACKING (12 MO.) 11/29/2020 18:32 [facility] [place] TYPE: Emergency COMPLAINT: - NAUSEA, VOMITING, STOMACH PAIN 11/16/2020 10:18 [facility] [place] TYPE: Emergency COMPLAINT: - VOMITING, ABD PAIN DIAGNOSES: - Allergy status to narcotic agent - Allergy status to other drugs, medicaments and biological substances - Interstitial cystitis (chronic) without hematuria - Allergy status to other drugs, medicaments and biological substances - Other terminal carman (current) drug therapy - Allergy status to narcotic agent - Unspecified abdominal pain - Complex regional pain syndrome I of left lower limb 10/15/2020 15:54 [facility] [place] TYPE: Emergency COMPLAINT: - ABDOMINAL PAIN/VOMITING DIAGNOSES: - Unspecified abdominal pain - Allergy status to other drugs, medicaments and biological substances - Complex regional pain syndrome I of left lower limb - Other alf (current) drug therapy - Allergy status to narcotic agent - Nausea 09/25/2020 15:19 [facility] [place] TYPE: Emergency COMPLAINT: - ABD PAIN, NAUSEA, VOMITING DIAGNOSES: - Unspecified abdominal pain - Generalized abdominal pain - Allergy status to narcotic agent - Other alf (current) drug therapy - Allergy status to other drugs, medicaments and biological substances 09/20/2020 11:36 [facility] [place] TYPE: Emergency COMPLAINT: - ABDOMINAL PAIN DIAGNOSES: - Unspecified abdominal pain - Complex regional pain syndrome I, unspecified - Other alf (current) drug therapy - Vomiting, unspecified - Allergy status to narcotic agent - Allergy status to other drugs, medicaments and biological substances 08/23/2020 17:35 [facility] [place] TYPE: Emergency COMPLAINT: - ABD PAIN, VOMITING DIAGNOSES: - Allergy status to other drugs, medicaments and biological substances - Allergy status to narcotic agent - Other alf (current) drug therapy - Unspecified abdominal pain - Cyclical vomiting syndrome unrelated to migraine 08/18/2020 15:[address] [facility] [place] [facility] [place] TYPE: Emergency COMPLAINT: - ABD PAIN, VOMITING DIAGNOSES: - Cyclical vomiting syndrome unrelated to migraine - Allergy status to narcotic agent - Other terminal carman (current) drug therapy - Complex regional pain syndrome I of left lower limb - Cyclical vomiting syndrome unrelated to migraine - Allergy status to other drugs, medicaments and biological substances 08/14/2020 18:53 [facility] [place] TYPE: Emergency COMPLAINT: - ABDOMINAL PAIN, N/V DIAGNOSES: - Allergy status to other drugs, medicaments and biological substances - Other terminal carman (current) drug therapy - Upper abdominal pain, unspecified - Allergy status to narcotic agent - Allergy status to narcotic agent - Allergy status to other drugs, medicaments and biological substances - Cyclical vomiting syndrome unrelated to migraine 08/12/2020 03:16 [facility] [place] TYPE: Emergency COMPLAINT: - ABDOMENAL PAIN,VOMITING DIAGNOSES: - Other alf (current) drug therapy - Vomiting, unspecified - Allergy status to narcotic agent - Dehydration - Allergy status to other drugs, medicaments and biological substances - Generalized abdominal pain 07/04/2020 07:[address] [facility] [place] TYPE: Emergency COMPLAINT: - NECK PAIN NON INJ DIAGNOSES: - Other alf (current) drug therapy - Allergy status to narcotic agent - Torticollis - Cervicalgia - Allergy status to other drugs, medicaments and biological substances 06/28/2020 16:[address] [facility] [place] TYPE: Emergency COMPLAINT: - VOMITING, ABD PAIN DIAGNOSES: - Other alf (current) drug therapy - Allergy status to narcotic agent - Complex regional pain syndrome I of left lower limb - Elevated white blood cell count, unspecified - Unspecified abdominal pain - Epigastric pain [facility]2020 [facility] COMPLAINT: - ABDOMINAL PAIN/VOMITING DIAGNOSES: - Allergy status to narcotic agent - Other alf (current) drug therapy - Unspecified abdominal pain - Nausea with vomiting, unspecified 06/02/2020 15:[address] 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 [place] TYPE: Emergency COMPLAINT: - ABDOMINAL PAIN/VOMITING DIAGNOSES: - Allergy status to narcotic agent - Unspecified abdominal pain - Complex regional pain syndrome I of other specified site - Other terminal carman (current) drug therapy - Vomiting, unspecified - Unspecified abdominal pain 03/23/2020 06:[address] [facility] [place] [facility] [place] TYPE: Emergency COMPLAINT: - ABD PAIN, VOMITING 03/09/2020 13:21 [facility] [place] TYPE: Emergency COMPLAINT: - ABD PAIN, VOMITING DIAGNOSES: - Personal history of nicotine dependence - Complex regional pain syndrome I, unspecified - Allergy status to narcotic agent - Other terminal carman (current) drug therapy - Nausea with vomiting, unspecified 03/05/2020 10:51 [facility] [place] TYPE: Emergency COMPLAINT: - ABD PAIN, VOMITING DIAGNOSES: - Other terminal carman (current) drug therapy - Other chronic pain - Nicotine dependence, unspecified, uncomplicated - jail (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 - Allergy status to other drugs, medicaments and biological substances - Cyclical vomiting syndrome unrelated to migraine - Unspecified abdominal pain - Allergy status to narcotic agent INPATIENT VISIT TRACKING (12 MO.) 03/23/2020 15:02 [facility] [place] TYPE: Medical Surgical COMPLAINT: - BILATERAL PE DIAGNOSES: - jail (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 - Presence of (intrauterine) contraceptive device - Right upper quadrant pain - Complex regional pain syndrome I of left lower limb - Nonspecific elevation of levels of transaminase and lactic acid dehydrogenase [LDH] - Right upper quadrant pain - Interstitial cystitis (chronic) without hematuria - Complex regional pain syndrome I of left lower limb - Other alf (current) drug therapy - Cyclical vomiting syndrome unrelated to migraine - Major depressive disorder, single episode, unspecified - Cyclical vomiting syndrome unrelated to migraine - exterminator termite (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 - Nonspecific elevation of levels of transaminase and lactic acid dehydrogenase [LDH] - Other pulmonary embolism without acute cor pulmonale - Allergy status to narcotic agent - Presence of (intrauterine) contraceptive device - Other terminal carman (current) drug therapy - Allergy status to narcotic agent - Major depressive disorder, single episode, unspecified - Opioid dependence, uncomplicated - Opioid dependence, uncomplicated - Interstitial cystitis (chronic) without hematuria [email or web address]
== END 2020-11-29 21:32 | disposition home or self-care (01) ==
LOC: ED 18:31
DX: G89.29 Other chronic pain (principal); R10.10 Upper abdominal pain, unspecified; R11.2 Nausea with vomiting, unspecified; Z88.5 Allergy status to narcotic agent; Z88.8 Allergy status to other drugs, medicaments and biological substances; Z79.899 Other long term (current) drug therapy; Z79.891 Long term (current) use of opiate analgesic
CPT/HCPCS: 80053; 81001; 83690; 83735; 84703; 85025; 96374; 96375; 99284-25; J1885; J2550; J7030

== ENCOUNTER 2020-12-09 08:30 | Emergency (ER) | payer MEDICARE, OTHER ==
[~2020-12-09] VITALS: Ht 165.1 cm; Wt 97.5 kg
--- OUTSIDE RECORDS SUMMARY | 2020-12-09 08:32 | XMS ---
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 No recent Security Events currently on file CRITERIA MET - Group Notification - 6 ED Visits in 6 Months - [facility] - Has Care Guidelines - [facility] - 2 Visits in 30 Days CARE PROVIDERS VICKY [facility] Internal Medicine Current PHONE: [phone] Aron Hannah Anesthesiology: Pain Medicine 07/18/2018-Current PHONE: Unknown Guidelines Source: [facility] Guidelines Date: 08/22/2019 Care Recommendation: PATIENT HAS HISTORY COMPLEX REEGIONAL PAIN SYNDROME WELL CYCLICAL ABDOMINAL PAIN/NAUSEA/VOMITING.\T\nbsp; UNDER TREATMENT WITH ARON HANNAH MD PHD PAIN MANAGMENT [facility].\T\nbsp; FOLLOW THIS REGIMEN WHEN PRESENTING TO ED FOR RESOLUTION OF SYMPTOMS: *HYDRATION IV *HYDROMORPHONE 1MG IV * KETOROLAC 30 MG IV *PROMETHAZINE 25MG IV Additional care guidelines exist for the following facilities: [facility] ( 05/21/2019 ) Care History Medical/Surgical 12/01/2020 [facility] Follow up visit with Dr. Vazquez on 12/04/2020 09/22/2020 [facility] As of 08/28/2020 patient has standing order for Rx - Phenergan and Toradol, per Dr. Vazquez. 08/18/2020 [facility] Patient reported need for IV pain medication and nausea medicine to PCP Dr. Vazquez on , but Dr. Vazquez out of Clinic.\T\nbsp; Patient adivised to go to ED with letter provided by Dr. Vazquez on 06/18/2020. E.D. VISIT COUNT (12 MO.) 20 [facility] H. TOTAL 20 NOTE: Visits indicate total known visits. ED/UCC VISIT TRACKING (12 MO.) 12/09/2020 08:31 [facility] [place] TYPE: Emergency COMPLAINT: - R ARM SWELLING 11/30/2020 00:[address] [facility] [address] 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 - Upper abdominal pain, unspecified - Allergy status to other drugs, medicaments and biological substances - Other chronic pain - Unspecified abdominal pain - Nausea with vomiting, unspecified - Other security assessor (current) drug therapy 11/16/2020 10:18 [facility] [place] Lisa Ul[place] TYPE: Emergency COMPLAINT: - VOMITING, ABD PAIN DIAGNOSES: - Allergy status to narcotic agent - Allergy status to other drugs, medicaments and biological substances - Interstitial cystitis (chronic) without hematuria - Allergy status to other drugs, medicaments and biological substances - Other security assessor (current) drug therapy - Allergy status to narcotic agent - Unspecified abdominal pain - Complex regional pain syndrome I of left lower limb 10/15/2020 15:54 [facility] [place] TYPE: Emergency COMPLAINT: - ABDOMINAL PAIN/VOMITING DIAGNOSES: - Allergy status to narcotic agent - Unspecified abdominal pain - Allergy status to other drugs, medicaments and biological substances - Complex regional pain syndrome I of left lower limb - Allergy status to other drugs, medicaments and biological substances - Other security assessor (current) drug therapy - Allergy status to narcotic agent - Nausea 09/25/2020 15:[address] [facility] [address] [facility] [place] TYPE: Emergency COMPLAINT: - ABD PAIN, NAUSEA, VOMITING DIAGNOSES: - Unspecified abdominal pain - Generalized abdominal pain - Allergy status to narcotic agent - Other security assessor (current) drug therapy - Allergy status to other drugs, medicaments and biological substances 09/20/2020 11:36 [facility] [place] TYPE: Emergency COMPLAINT: - ABDOMINAL PAIN DIAGNOSES: - Unspecified abdominal pain - Complex regional pain syndrome I, unspecified - Other nursing home (current) drug therapy - Vomiting, unspecified - Allergy status to narcotic agent - Allergy status to other drugs, medicaments and biological substances 08/23/2020 17:[address] [facility] [address] [facility] [place] TYPE: Emergency COMPLAINT: - ABD PAIN, VOMITING DIAGNOSES: - Allergy status to other drugs, medicaments and biological substances - Allergy status to narcotic agent - Other security assessor (current) drug therapy - Unspecified abdominal pain - Cyclical vomiting syndrome unrelated to migraine 08/18/2020 15:[address] [facility] [address] [facility] [place] TYPE: Emergency COMPLAINT: - ABD PAIN, VOMITING DIAGNOSES: - Cyclical vomiting syndrome unrelated to migraine - Allergy status to narcotic agent - Other nursing home (current) drug therapy - Complex regional pain syndrome I of left lower limb - Cyclical vomiting syndrome unrelated to migraine - Allergy status to other drugs, medicaments and biological substances 08/14/2020 18:53 [facility] [place] TYPE: Emergency COMPLAINT: - ABDOMINAL PAIN, N/V DIAGNOSES: - Cramp and spasm - Allergy status to other drugs, medicaments and biological substances - Personal history of pulmonary embolism - Other security assessor (current) drug therapy - Upper abdominal pain, unspecified - Allergy status to narcotic agent - Allergy status to narcotic agent - Allergy status to other drugs, medicaments and biological substances - Cyclical vomiting syndrome unrelated to migraine - Pain in left leg 08/12/2020 03:[address] [facility] [address] [facility] [place] TYPE: Emergency COMPLAINT: - ABDOMENAL PAIN,VOMITING DIAGNOSES: - Other nursing home (current) drug therapy - Vomiting, unspecified - Allergy status to narcotic agent - Dehydration - Allergy status to other drugs, medicaments and biological substances - Generalized abdominal pain 07/04/2020 07:16 [facility] [place] TYPE: Emergency COMPLAINT: - NECK PAIN NON INJ DIAGNOSES: - Other security assessor (current) drug therapy - Allergy status to narcotic agent - Torticollis - Cervicalgia - Allergy status to other drugs, medicaments and biological substances 06/28/2020 16:25 [facility] [place] Lisa Ulrich [place] TYPE: Emergency COMPLAINT: - VOMITING, ABD PAIN DIAGNOSES: - Other nursing home (current) drug therapy - Allergy status to narcotic agent - Complex regional pain syndrome I of left lower limb - Elevated white blood cell count, unspecified - Unspecified abdominal pain - Epigastric pain 06/23/2020 16:[address] [facility] [address] [facility] [place] TYPE: Emergency COMPLAINT: - ABDOMINAL PAIN/VOMITING DIAGNOSES: - Allergy status to narcotic agent - Other security assessor (current) drug therapy - Unspecified abdominal pain - Nausea with vomiting, unspecified 06/02/2020 15:[address] [facility] [address] [facility] [place] TYPE: Emergency COMPLAINT: - ABD PAIN, VOMITING DIAGNOSES: - Allergy status to other drugs, medicaments and biological substances - Unspecified abdominal pain - meat molder (current) use of anticoagulants - Other nursing home (current) drug therapy - Allergy status to narcotic agent 05/29/2020 19:[address] [facility] [address] [facility] [place] TYPE: Emergency COMPLAINT: - ABD PAIN,VOMITING DIAGNOSES: - Allergy status to narcotic agent - Unspecified abdominal pain - Complex regional pain syndrome I of other specified site - Other nursing home (current) drug therapy 05/26/2020 19:15 [facility] [place] TYPE: Emergency COMPLAINT: - ABDOMINAL PAIN/VOMITING DIAGNOSES: - Allergy status to narcotic agent - Unspecified abdominal pain - Complex regional pain syndrome I of other specified site - Other security assessor (current) drug therapy - Vomiting, unspecified - Unspecified abdominal pain 03/23/2020 06:39 [facility] [place] TYPE: Emergency COMPLAINT: - ABD PAIN, VOMITING 03/09/2020 13:21 [facility] [place] TYPE: Emergency COMPLAINT: - ABD PAIN, VOMITING DIAGNOSES: - Personal history of nicotine dependence - Complex regional pain syndrome I, unspecified - Allergy status to narcotic agent - Other security assessor (current) drug therapy - Nausea with vomiting, unspecified 03/05/2020 10:51 [facility] [place] TYPE: Emergency COMPLAINT: - ABD PAIN, VOMITING DIAGNOSES: - Other nursing home (current) drug therapy - Other chronic pain - Nicotine dependence, unspecified, uncomplicated - [facility] (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 - Allergy status to other drugs, medicaments and biological substances - Cyclical vomiting syndrome unrelated to migraine - Unspecified abdominal pain - Allergy status to narcotic agent INPATIENT VISIT TRACKING (12 MO.) 03/23/2020 15:02 [facility] [place] TYPE: Medical Surgical COMPLAINT: - BILATERAL PE DIAGNOSES: - 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 - Presence of (intrauterine) contraceptive device - Right upper quadrant pain - Complex regional pain syndrome I of left lower limb - Nonspecific elevation of levels of transaminase and lactic acid dehydrogenase [LDH] - Right upper quadrant pain - Interstitial cystitis (chronic) without hematuria - Complex regional pain syndrome I of left lower limb - Other nursing home (current) drug therapy - Cyclical vomiting syndrome unrelated to migraine - Major depressive disorder, single episode, unspecified - Cyclical vomiting syndrome unrelated to migraine - [facility] (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 - Nonspecific elevation of levels of transaminase and lactic acid dehydrogenase [LDH] - Other pulmonary embolism without acute cor pulmonale - Allergy status to narcotic agent - Presence of (intrauterine) contraceptive device - Other security assessor (current) drug therapy - Allergy status to narcotic agent - Major depressive disorder, single episode, unspecified - Opioid dependence, uncomplicated - Opioid dependence, uncomplicated - Interstitial cystitis (chronic) without hematuria [email or web address]
[2020-12-09] MEDS ORDERED: ELIQUIS5 MG PO (10:23)
== END 2020-12-09 10:59 | disposition home or self-care (01) ==
LOC: ED 08:30
DX: I82.621 Acute embolism and thrombosis of deep veins of right upper extremity (principal); Z88.5 Allergy status to narcotic agent; Z88.8 Allergy status to other drugs, medicaments and biological substances; Z79.899 Other long term (current) drug therapy
CPT/HCPCS: 93971; 96372; 99283-25; J1650

== ENCOUNTER 2020-12-15 15:53 | Emergency (ER) | payer MEDICARE, OTHER ==
[~2020-12-15] VITALS: Ht 165.1 cm; Wt 101.0 kg
--- OUTSIDE RECORDS SUMMARY | 2020-12-15 15:56 | XMS ---
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 No recent Security Events currently on file CRITERIA MET - Group Notification - 6 ED Visits in 6 Months - [facility] - Has Care Guidelines - [facility] - 2 Visits in 30 Days CARE PROVIDERS VICKY [facility] Internal Medicine Current PHONE: [phone] Aron Hannah Anesthesiology: Pain Medicine 07/18/2018-Current PHONE: Unknown Guidelines Source: [facility] Guidelines Date: 08/22/2019 Care Recommendation: PATIENT HAS HISTORY COMPLEX REEGIONAL PAIN SYNDROME WELL CYCLICAL ABDOMINAL PAIN/NAUSEA/VOMITING.\T\nbsp; UNDER TREATMENT WITH ARON HANNAH MD PHD PAIN MANAGMENT [facility].\T\nbsp; FOLLOW THIS REGIMEN WHEN PRESENTING TO ED FOR RESOLUTION OF SYMPTOMS: *HYDRATION IV *HYDROMORPHONE 1MG IV * KETOROLAC 30 MG IV *PROMETHAZINE 25MG IV Additional care guidelines exist for the following facilities: [facility] ( 05/21/2019 ) Care History Medical/Surgical 12/01/2020 [facility] Follow up visit with Dr. Vazquez on 12/04/2020 09/22/2020 [facility] As of 08/28/2020 patient has standing order for Rx - Phenergan and Toradol, per Dr. Vazquez. 08/18/2020 [facility] Patient reported need for IV pain medication and nausea medicine to PCP Dr. Vazquez on , but Dr. Vazquez out of Clinic.\T\nbsp; Patient adivised to go to ED with letter provided by Dr. Vazquez on 06/18/2020. E.D. VISIT COUNT (12 MO.) 21 [facility] H. TOTAL 21 NOTE: Visits indicate total known visits. ED/UCC VISIT TRACKING (12 MO.) 12/15/2020 15:53 [facility] [place] TYPE: Emergency COMPLAINT: - ABD PAIN/NAUSEA 12/09/2020 08:31 [facility] [place] TYPE: Emergency COMPLAINT: - R ARM SWELLING DIAGNOSES: - Allergy status to other drugs, medicaments and biological substances - Allergy status to narcotic agent - Other english 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 - Acute embolism and thrombosis of deep veins of right upper extremity 11/30/2020 00:00 [facility] [place] TYPE: Emergency COMPLAINT: - NAUSEA VOMITING 11/29/2020 18:32 [facility] [place] TYPE: Emergency COMPLAINT: - NAUSEA, VOMITING, STOMACH PAIN DIAGNOSES: - Allergy status to narcotic agent - 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 - Upper abdominal pain, unspecified - Allergy status to other drugs, medicaments and biological substances - Other chronic pain - Unspecified abdominal pain - Nausea with vomiting, unspecified - Other english 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 11/16/2020 10:18 [facility] [place] TYPE: Emergency COMPLAINT: - VOMITING, ABD PAIN DIAGNOSES: - Allergy status to narcotic agent - Allergy status to other drugs, medicaments and biological substances - Interstitial cystitis (chronic) without hematuria - Allergy status to other drugs, medicaments and biological substances - Other correction (current) drug therapy - [...] drugs, medicaments and biological substances - Other correction (current) drug therapy - Allergy status to narcotic agent - Nausea 09/25/2020 15:19 [facility] [place] TYPE: Emergency COMPLAINT: - ABD PAIN, NAUSEA, VOMITING DIAGNOSES: - Unspecified abdominal pain - Generalized abdominal pain - Allergy status to narcotic agent - Allergy status to other drugs, medicaments and biological substances - Allergy status to narcotic agent - Other english 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 - Allergy status to other drugs, medicaments and biological substances 09/20/2020 11:36 [facility] [place] TYPE: Emergency COMPLAINT: - ABDOMINAL PAIN DIAGNOSES: - Unspecified abdominal pain - Allergy status to narcotic agent - Complex regional pain syndrome I, unspecified - Other english 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 - Allergy status to other drugs, medicaments and biological substances - Vomiting, unspecified - Allergy status to narcotic agent - Allergy status to other drugs, medicaments and biological substances 08/23/2020 17:35 [facility] [place] TYPE: Emergency COMPLAINT: - ABD PAIN, VOMITING DIAGNOSES: - Allergy status to other drugs, medicaments and biological substances - Allergy status to narcotic agent - Other correction (current) drug therapy - Allergy status to other drugs, medicaments and biological substances - Unspecified abdominal pain - Cyclical vomiting syndrome unrelated to migraine - Allergy status to narcotic agent 08/18/2020 15:53 [facility] [place] TYPE: Emergency COMPLAINT: - ABD PAIN, VOMITING DIAGNOSES: - Cyclical vomiting syndrome unrelated to migraine - Allergy status to narcotic agent - Other english 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 - Allergy status to other drugs, medicaments and biological substances - Complex regional pain syndrome I of left lower limb - Cyclical vomiting syndrome unrelated to migraine - Allergy status to other drugs, medicaments and biological substances - Allergy status to narcotic agent 08/14/2020 18:53 [facility] [place] TYPE: Emergency COMPLAINT: - ABDOMINAL PAIN, N/V DIAGNOSES: - Cramp and spasm - Allergy status to other drugs, medicaments and biological substances - Personal history of pulmonary embolism - Other correction (current) drug therapy - Upper abdominal pain, unspecified - Allergy status to narcotic agent - Allergy status to narcotic agent - Allergy status to other drugs, medicaments and biological substances - Cyclical vomiting syndrome unrelated to migraine - Pain in left leg 08/12/2020 03:16 [facility] [place] TYPE: Emergency COMPLAINT: - ABDOMENAL PAIN,VOMITING DIAGNOSES: - Other correction (current) drug therapy - Vomiting, unspecified - Allergy status to narcotic agent - Dehydration - Allergy status to other drugs, medicaments and biological substances - Generalized abdominal pain 07/04/2020 07:16 [facility] [place] TYPE: Emergency COMPLAINT: - NECK PAIN NON INJ DIAGNOSES: - Other english 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 - Allergy status to narcotic agent - Torticollis - Cervicalgia - Allergy status to other drugs, medicaments and biological substances 06/28/2020 16:25 [facility] [place] TYPE: Emergency COMPLAINT: - VOMITING, ABD PAIN DIAGNOSES: - Other english 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 - Allergy status to narcotic agent - Complex regional pain syndrome I of left lower limb - Elevated white blood cell count, unspecified - Unspecified abdominal pain - Epigastric pain 06/23/2020 16:57 [facility] [place] TYPE: Emergency COMPLAINT: - ABDOMINAL PAIN/VOMITING DIAGNOSES: - Allergy status to narcotic agent - Other correction (current) drug therapy - Unspecified abdominal pain - Nausea with vomiting, unspecified 06/02/2020 15:35 [facility] [place] TYPE: Emergency COMPLAINT: - ABD PAIN, VOMITING DIAGNOSES: - Allergy status to other drugs, medicaments and biological substances - Unspecified abdominal pain - shelter (current) use of anticoagulants - Other english 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 - Allergy status to narcotic agent 05/29/2020 19:40 [facility] [place] TYPE: Emergency COMPLAINT: - ABD PAIN,VOMITING DIAGNOSES: - Allergy status to narcotic agent - Unspecified abdominal pain - Complex regional pain syndrome I of other specified site - Other english 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 05/26/2020 19:15 [facility] [place] TYPE: Emergency COMPLAINT: - ABDOMINAL PAIN/VOMITING DIAGNOSES: - Allergy status to narcotic agent - Unspecified abdominal pain - Complex regional pain syndrome I of other specified site - Other correction (current) drug therapy - Vomiting, unspecified - Unspecified abdominal pain 03/23/2020 06:39 [facility] [place] TYPE: Emergency COMPLAINT: - ABD PAIN, VOMITING 03/09/2020 13:21 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
[2020-12-15] MEDS ORDERED: ELIQUIS5 MG PO (17:38)
--- NOTE | 2020-12-15 22:39 | EKG ---
[facility] [address] [facility] [place] [address] Signed Normal sinus rhythm Normal ECG When compared with ECG of 23-MAR-2020 08:33, Vent. rate has decreased BY 47 BPM Non-specific change in ST segment in Inferior leads Confirmed by VERITO VILLARREAL MD ([id number] on 12/15/2020 10:39:46 PM Electronically Signed By: VERITO VILLARREAL MD 12/15/20 [id number] PATIENT NAME: BRODY LINCOLN Electrocardiogram DATE OF : 89 PHYSICIAN: VERITO VILLARREAL MD REPORT #: [id number] REPORT IS CONFIDENTIAL AND NOT TO BE RELEASED WITHOUT AUTHORIZATION
[2021-03-02] MEDS ORDERED: CIPRO500 MG PO (11:29)
== END 2020-12-15 22:56 | disposition home or self-care (01) ==
LOC: ED 15:53
DX: R10.13 Epigastric pain (principal); R11.2 Nausea with vomiting, unspecified; Z88.5 Allergy status to narcotic agent; Z88.8 Allergy status to other drugs, medicaments and biological substances; Z79.899 Other long term (current) drug therapy
CPT/HCPCS: 36415; 80053; 83690; 84484; 84703; 85025; 93005; 93010; 96361; 96365; 96374; 96375; 96376; 99284-25; J2550; J7121

== ENCOUNTER 2020-12-26 14:32 | Emergency (ER) | payer MEDICARE, OTHER ==
[~2020-12-26] VITALS: Ht 165.1 cm; Wt 100.7 kg
--- OUTSIDE RECORDS SUMMARY | 2020-12-26 14:34 | XMS ---
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 No recent Security Events currently on file CRITERIA MET - Group Notification - 6 ED Visits in 6 Months - [facility] - Has Care Guidelines - PDMP - [facility] - 2 Visits in 30 Days CARE PROVIDERS MARCELINO PERRY Internal Medicine Current PHONE: [phone] Aron Hannah Anesthesiology: Pain Medicine 07/18/2018-Current PHONE: Unknown Guidelines Source: [facility] Guidelines Date: 08/22/2019 Care Recommendation: PATIENT HAS HISTORY COMPLEX REEGIONAL PAIN SYNDROME WELL CYCLICAL ABDOMINAL PAIN/NAUSEA/VOMITING.\T\nbsp; UNDER TREATMENT WITH ARON HANNAH MD PHD PAIN MANAGMENT [facility].\T\nbsp; FOLLOW THIS REGIMEN WHEN PRESENTING TO ED FOR RESOLUTION OF SYMPTOMS: *HYDRATION IV *HYDROMORPHONE 1MG IV * KETOROLAC 30 MG IV *PROMETHAZINE 25MG IV Additional care guidelines exist for the following facilities: [facility] ( 05/21/2019 ) Care History Medical/Surgical 12/01/2020 [facility] Follow up visit with Dr. Perry on 12/04/2020 09/22/2020 [facility] As of 08/28/2020 patient has standing order for Rx - Phenergan and Toradol, per Dr. Perry. 08/18/2020 [facility] Patient reported need for IV pain medication and nausea medicine to PCP Dr. Perry on , but Dr. Perry out of Clinic.\T\nbsp; Patient adivised to go to ED with letter provided by Dr. Perry on 06/18/2020. E.D. VISIT COUNT (12 MO.) 22 [facility]. TOTAL 22 NOTE: Visits indicate total known visits. ED/UCC VISIT TRACKING (12 MO.) 12/26/2020 14:33 [facility] [place] TYPE: Emergency COMPLAINT: - N/V, ABD PAIN 12/15/2020 15:53 [facility] [place] TYPE: Emergency COMPLAINT: - ABD PAIN/NAUSEA DIAGNOSES: - Other continuous churn buttermaker (current) drug therapy - Allergy status to other drugs, medicaments and biological substances - Nausea with vomiting, unspecified - Allergy status to narcotic agent - Epigastric pain 12/09/2020 08:31 [facility] [place] TYPE: Emergency COMPLAINT: - R ARM SWELLING DIAGNOSES: - Allergy status to other drugs, medicaments and biological substances - Allergy status to narcotic agent - Other continuous churn buttermaker (current) drug therapy - Acute embolism and thrombosis of deep veins of right upper extremity 11/30/2020 00:[address] [facility] [place] TYPE: Emergency COMPLAINT: - NAUSEA VOMITING 11/29/2020 18:32 [facility] [place] TYPE: Emergency COMPLAINT: - NAUSEA, VOMITING, STOMACH PAIN DIAGNOSES: - Allergy status to narcotic agent - half-way (current) use of opiate analgesic - Upper abdominal pain, unspecified - Allergy status to other drugs, medicaments and biological substances - Other chronic pain - Unspecified abdominal pain - Nausea with vomiting, unspecified - Other prison (current) drug therapy 11/16/2020 10:[address] [facility] [place] TYPE: Emergency COMPLAINT: - VOMITING, ABD PAIN DIAGNOSES: - Allergy status to narcotic agent - Allergy status to other drugs, medicaments and biological substances - Interstitial cystitis (chronic) without hematuria - Allergy status to other drugs, medicaments and biological substances - Other continuous churn buttermaker (current) drug therapy - Allergy status to narcotic agent - Unspecified abdominal pain - Complex regional pain syndrome I of left lower limb [facility] COMPLAINT: - ABDOMINAL PAIN/VOMITING DIAGNOSES: - Allergy status to narcotic agent - Unspecified abdominal pain - Allergy status to other drugs, medicaments and biological substances - Complex regional pain syndrome I of left lower limb - Allergy status to other drugs, medicaments and biological substances - Other continuous churn buttermaker (current) drug therapy - Allergy status to narcotic agent - Nausea [facility] COMPLAINT: - ABD PAIN, NAUSEA, VOMITING DIAGNOSES: - Unspecified abdominal pain - Generalized abdominal pain - Allergy status to narcotic agent - Allergy status to other drugs, medicaments and biological substances - Allergy status to narcotic agent - Other prison (current) drug therapy - Allergy status to other drugs, medicaments and biological substances 09/20/2020 11[facility] COMPLAINT: - ABDOMINAL PAIN DIAGNOSES: - Unspecified abdominal pain - Allergy status to narcotic agent - Complex regional pain syndrome I, unspecified - Other prison (current) drug therapy - Allergy status to other drugs, medicaments and biological substances - Vomiting, unspecified - Allergy status to narcotic agent - Allergy status to other drugs, medicaments and biological substances 08/23/2020 17:35 [facility] [place] TYPE: Emergency COMPLAINT: - ABD PAIN, VOMITING DIAGNOSES: - Allergy status to other drugs, medicaments and biological substances - Allergy status to narcotic agent - Other continuous churn buttermaker (current) drug therapy - Allergy status to other drugs, medicaments and biological substances - Unspecified abdominal pain - Cyclical vomiting syndrome unrelated to migraine - Allergy status to narcotic agent 08/18/2020 15:53 [facility] [place] TYPE: Emergency COMPLAINT: - ABD PAIN, VOMITING DIAGNOSES: - Cyclical vomiting syndrome unrelated to migraine - Allergy status to narcotic agent - Other prison (current) drug therapy - Allergy status to [...] Personal history of pulmonary embolism - Other prison (current) drug therapy - Upper abdominal pain, unspecified - Allergy status to narcotic agent - Allergy status to narcotic agent - Allergy status to other drugs, medicaments and biological substances - Cyclical vomiting syndrome unrelated to migraine - Pain in left leg 08/12/2020 03:16 [facility] [place] TYPE: Emergency COMPLAINT: - ABDOMENAL PAIN,VOMITING DIAGNOSES: - Other continuous churn buttermaker (current) drug therapy - Vomiting, unspecified - Allergy status to narcotic agent - Dehydration - Allergy status to other drugs, medicaments and biological substances - Generalized abdominal pain 07/04/2020 07:16 [facility] [place] TYPE: Emergency COMPLAINT: - NECK PAIN NON INJ DIAGNOSES: - Other prison (current) drug therapy - Allergy status to narcotic agent - Torticollis - Cervicalgia - Allergy status to other drugs, medicaments and biological substances 06/28/2020 16:25 [facility] [place] TYPE: Emergency COMPLAINT: - VOMITING, ABD PAIN DIAGNOSES: - Other continuous churn buttermaker (current) drug therapy - Allergy status to narcotic agent - Complex regional pain syndrome I of left lower limb - Elevated white blood cell count, unspecified - Unspecified abdominal pain - Epigastric pain 06/23/2020 16:57 [facility] [place] TYPE: Emergency COMPLAINT: - ABDOMINAL PAIN/VOMITING DIAGNOSES: - Allergy status to narcotic agent - Other prison (current) drug therapy - Unspecified abdominal pain - Nausea with vomiting, unspecified 06/02/2020 15:35 [facility] [place] TYPE: Emergency COMPLAINT: - ABD PAIN, VOMITING DIAGNOSES: - Allergy status to other drugs, medicaments and biological substances - Unspecified abdominal pain - half-way (current) use of anticoagulants - Other prison (current) drug therapy - Allergy status to narcotic agent 05/29/2020 19:[address] [facility] [address] [facility] [place] TYPE: Emergency COMPLAINT: - ABD PAIN,VOMITING DIAGNOSES: - Allergy status to narcotic agent - Unspecified abdominal pain - Complex regional pain syndrome I of other specified site - Other prison (current) drug therapy 05/26/2020 19:15 [facility] [place] TYPE: Emergency COMPLAINT: - ABDOMINAL PAIN/VOMITING DIAGNOSES: - Allergy status to narcotic agent - Unspecified abdominal pain - Complex regional pain syndrome I of other specified site - Other prison (current) drug therapy - Vomiting, unspecified - Unspecified abdominal pain 03/23/2020 06:39 [facility] [place] TYPE: Emergency COMPLAINT: - ABD PAIN, VOMITING Plus 2 More Visits INPATIENT VISIT TRACKING (12 MO.) 03/23/2020 15:02 [facility] [place] TYPE: Medical Surgical COMPLAINT: - BILATERAL PE DIAGNOSES: - half-way (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 - Presence of (intrauterine) contraceptive device - Right upper quadrant pain - Complex regional pain syndrome I of left lower limb - Nonspecific elevation of levels of transaminase and lactic acid dehydrogenase [LDH] - Right upper quadrant pain - Interstitial cystitis (chronic) without hematuria - Complex regional pain syndrome I of left lower limb - Other prison (current) drug therapy - Cyclical vomiting syndrome unrelated to migraine - Major depressive disorder, single episode, unspecified - Cyclical vomiting syndrome unrelated to migraine - bed bug exterminator (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 - Nonspecific elevation of levels of transaminase and lactic acid dehydrogenase [LDH] - Other pulmonary embolism without acute cor pulmonale - Allergy status to narcotic agent - Presence of (intrauterine) contraceptive device - Other continuous churn buttermaker (current) drug therapy - Allergy status to narcotic agent - Major depressive disorder, single episode, unspecified - Opioid dependence, uncomplicated - Opioid dependence, uncomplicated - Interstitial cystitis (chronic) without hematuria [email or web address]
== END 2020-12-26 20:35 | disposition home or self-care (01) ==
LOC: ED 14:32
DX: R10.9 Unspecified abdominal pain (principal); G90.50 Complex regional pain syndrome I, unspecified; R11.2 Nausea with vomiting, unspecified; R19.7 Diarrhea, unspecified; Z87.891 Personal history of nicotine dependence; Z88.5 Allergy status to narcotic agent; Z88.8 Allergy status to other drugs, medicaments and biological substances; Z79.899 Other long term (current) drug therapy
CPT/HCPCS: 80053; 85025; 96374; 96375; 96376; 99284-25; J2550; J7030

== ENCOUNTER 2021-01-03 19:57 | Emergency (ER) | payer MEDICARE, OTHER ==
[~2021-01-03] VITALS: Ht 165.1 cm; Wt 100.7 kg
--- OUTSIDE RECORDS SUMMARY | 2021-01-03 20:00 | XMS ---
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 Security Events currently on file CRITERIA MET - Group Notification - 6 ED Visits in 6 Months - [facility] - Has Care Guidelines - PDMP - [facility] - 2 Visits in 30 Days CARE PROVIDERS MARCELINO PERRY Internal Medicine Current PHONE: [phone] Aron Hannah Anesthesiology: Pain Medicine 07/18/2018-Current PHONE: [...] care guidelines exist for the following facilities: [facility] ( 05/21/2019 ) Care History Medical/Surgical 12/31/2020 [facility] Patient has established care at [facility] for consideration of spinal cord stimulator. 12/01/2020 [facility] Follow up visit with Dr. Perry on 12/04/2020 09/22/2020 [facility] As of 08/28/2020 patient has standing order for Rx - Phenergan and Toradol, per Dr. Perry. [place] VISIT COUNT (12 MO.) 23 [facility] TOTAL 23 NOTE: Visits indicate total known visits. 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 11/16/2020 10:18 [facility] [place] TYPE: Emergency COMPLAINT: - VOMITING, ABD PAIN DIAGNOSES: - Allergy status to narcotic agent - Allergy status to other drugs, medicaments and biological substances - Interstitial cystitis (chronic) without hematuria - Allergy status to other drugs, medicaments and biological substances - Other [facility] (current) drug therapy - Allergy status to [...] drugs, medicaments and biological substances - Other [facility]ci (current) drug therapy - Allergy status to narcotic agent - Nausea 09/25/2020 15:19 [facility] [place] TYPE: Emergency COMPLAINT: - ABD PAIN, NAUSEA, VOMITING DIAGNOSES: - Unspecified abdominal pain - Generalized abdominal pain - Allergy status to narcotic agent - Allergy status to other drugs, medicaments and biological substances - Allergy status to narcotic agent - 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 - Allergy status to other drugs, medicaments and biological substances 09/20/2020 11:36 [facility] [place] TYPE: Emergency COMPLAINT: - ABDOMINAL PAIN DIAGNOSES: - Unspecified abdominal pain - Allergy status to narcotic agent - Complex regional pain syndrome I, unspecified - 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 - Allergy status to other drugs, medicaments and biological substances - Vomiting, unspecified - Allergy status to narcotic agent - Allergy status to other drugs, medicaments and biological substances 08/23/2020 17:35 [facility] [place] TYPE: Emergency COMPLAINT: - ABD PAIN, VOMITING DIAGNOSES: - Allergy status to other drugs, medicaments and biological substances - Allergy status to narcotic agent - Other [facility] (current) drug therapy - Allergy status to other drugs, medicaments and biological substances - Unspecified abdominal pain - Cyclical vomiting syndrome unrelated to migraine - Allergy status to narcotic agent 08/18/2020 15:53 [facility] [place] TYPE: Emergency COMPLAINT: - ABD PAIN, VOMITING DIAGNOSES: - Cyclical vomiting syndrome unrelated to migraine - Allergy status to narcotic agent - Other [facility]ci (current) drug therapy - Allergy status to other drugs, medicaments and biological substances - Complex regional pain syndrome I of left lower limb - Cyclical vomiting syndrome unrelated to migraine - Allergy status to other drugs, medicaments and biological substances - Allergy status to narcotic agent 08/14/2020 18:53 [facility] [place] TYPE: Emergency COMPLAINT: - ABDOMINAL PAIN, N/V DIAGNOSES: - Cramp and spasm - Allergy status to other drugs, medicaments and biological substances - Personal history of pulmonary embolism - Other [facility]ci (current) drug therapy - Upper abdominal pain, unspecified - Allergy status to narcotic agent - Allergy status to narcotic agent - Allergy status to other drugs, medicaments and biological substances - Cyclical vomiting syndrome unrelated to migraine - Pain in left leg 08/12/2020 03:[address] [facility] [address] 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 - Allergy status to narcotic agent - Torticollis - Cervicalgia - Allergy status to other drugs, medicaments and biological substances 06/28/2020 16:25 [facility] [place] TYPE: Emergency COMPLAINT: - VOMITING, ABD PAIN DIAGNOSES: - Other [facility] (current) drug therapy - Allergy status to narcotic agent - Complex regional pain syndrome I of left lower limb - Elevated white blood cell count, unspecified - Unspecified abdominal pain - Epigastric pain 06/23/2020 16:57 [facility] [place] TYPE: Emergency COMPLAINT: - ABDOMINAL PAIN/VOMITING DIAGNOSES: - Allergy status to narcotic agent - Other [facility]ci (current) drug therapy - Unspecified abdominal pain - Nausea with vomiting, unspecified 06/02/2020 15:35 [facility] [place] TYPE: Emergency COMPLAINT: - ABD PAIN, VOMITING DIAGNOSES: - Allergy status to other drugs, medicaments and biological substances - Unspecified abdominal pain - civil process 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 - Other fci (current) drug therapy - Allergy status to narcotic agent 05/29/2020 19:40 [facility] [place] TYPE: Emergency COMPLAINT: - ABD PAIN,VOMITING DIAGNOSES: - Allergy status to narcotic agent - Unspecified abdominal pain - Complex regional pain syndrome I of other specified site - 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 - Presence of (intrauterine) contraceptive device - Right upper quadrant pain - Complex regional pain syndrome I of left lower limb - Nonspecific elevation of levels of transaminase and lactic acid dehydrogenase [LDH] - Right upper quadrant pain - Interstitial cystitis (chronic) without hematuria - Complex regional pain syndrome I of left lower limb - Other fci (current) drug therapy - Cyclical vomiting syndrome unrelated to migraine - Major depressive disorder, single episode, unspecified - Cyclical vomiting syndrome unrelated to migraine - civil process server (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 - Nonspecific elevation of levels of transaminase and lactic acid dehydrogenase [LDH] - Other pulmonary embolism without acute cor pulmonale - Allergy status to narcotic agent - Presence of (intrauterine) contraceptive device - 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
== END 2021-01-03 22:50 | disposition home or self-care (01) ==
LOC: ED 19:57
DX: R11.15 Cyclical vomiting syndrome unrelated to migraine (principal); Z87.891 Personal history of nicotine dependence; Z88.5 Allergy status to narcotic agent; Z88.8 Allergy status to other drugs, medicaments and biological substances; Z79.899 Other long term (current) drug therapy; Z79.01 Long term (current) use of anticoagulants
CPT/HCPCS: 80053; 85025; 96374; 96375; 99284-25; J2550; J7030

== ENCOUNTER 2021-01-26 16:38 | Emergency (ER) | payer MEDICARE, OTHER ==
[~2021-01-26] VITALS: Ht 165.1 cm; Wt 103.7 kg
--- OUTSIDE RECORDS SUMMARY | 2021-01-26 16:40 | XMS ---
PreManage Notification: BRODY LINCOLN Security Mental Telepathist Events No recent Security Events currently on file CRITERIA MET - Group Notification - 6 ED Visits in 6 Months - [facility] - Has Care Guidelines - PDMP - [facility] - 2 Visits in 30 Days CARE PROVIDERS MARCELINO PERRY Internal Medicine Current PHONE: [phone] Aron Hannah Anesthesiology: Pain Medicine 07/18/2018-Current PHONE: [...] Hospital ( 05/21/2019 ) Care History Medical/Surgical 01/05/2021 [facility] On going care for cyclic vomiting syndrome. 12/31/2020 [facility] Patient has established care at [facility] for consideration of spinal cord stimulator. 12/01/2020 [facility] Follow up visit with Dr. Perry on 12/04/2020 [place] VISIT COUNT (12 MO.) 24 [facility] [place] H. TOTAL 24 NOTE: Visits indicate total known visits. ED/UCC VISIT TRACKING (12 MO.) 01/26/2021 16:39 [place] [facility] [place]: Emergency COMPLAINT: - VOMITING/ ABD PAIN 01/03/2021 19:58 [facility] [place] [place] TYPE: Emergency COMPLAINT: - NAUSEA PAIN VOMITING DIAGNOSES: - Other senior living (current) drug therapy - Personal history of nicotine dependence - Allergy status to other drugs, medicaments and biological substances - Allergy status to narcotic agent - Cyclical vomiting syndrome unrelated to migraine - [facility] (current) use of anticoagulants 12/26/2020 14:33 [facility] [place] [place] TYPE: Emergency COMPLAINT: - N/V, ABD PAIN DIAGNOSES: - Nausea with vomiting, unspecified - Complex regional pain syndrome I, unspecified - Unspecified abdominal pain - Personal history of nicotine dependence - Allergy status to other drugs, medicaments and biological substances - Diarrhea, unspecified - Allergy status to narcotic agent - Other senior living (current) drug therapy 12/15/2020 15:53 [facility] [place] TYPE: Emergency COMPLAINT: - ABD PAIN/NAUSEA DIAGNOSES: - 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 [facility] [place] TYPE: Emergency COMPLAINT: - NAUSEA VOMITING 11/29/2020 18:[address] [facility] [address] 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 11/16/2020 10:18 [facility] [place] TYPE: Emergency COMPLAINT: - VOMITING, ABD PAIN DIAGNOSES: - Allergy status to narcotic agent - Allergy status to other drugs, medicaments and biological substances - Interstitial cystitis (chronic) without hematuria - Allergy status to other drugs, medicaments and biological substances - Other senior living (current) drug therapy - Allergy status to [...] drugs, medicaments and biological substances - Other senior living (current) drug therapy - Allergy status to narcotic agent - Nausea 09/25/2020 15:19 [facility] [place] TYPE: Emergency COMPLAINT: - ABD PAIN, NAUSEA, VOMITING DIAGNOSES: - Unspecified abdominal pain - Generalized abdominal pain - Allergy status to narcotic agent - Allergy status to other drugs, medicaments and biological substances - Allergy status to narcotic agent - Other senior living (current) drug therapy - Allergy status to other drugs, medicaments and biological substances 09/20/2020 11:36 [facility] [place] TYPE: Emergency COMPLAINT: - ABDOMINAL PAIN DIAGNOSES: - Unspecified abdominal pain - Allergy status to narcotic agent - Complex regional pain syndrome I, unspecified - 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 - Allergy status [...] Allergy status to narcotic agent - 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 - Allergy status to other drugs, medicaments and biological substances - Unspecified abdominal pain - Cyclical vomiting syndrome unrelated to migraine - Allergy status to narcotic agent 08/18/2020 15:53 [place] TYPE: Emergency COMPLAINT: - ABD PAIN, VOMITING DIAGNOSES: - Cyclical vomiting syndrome unrelated to migraine - Allergy status to narcotic agent - 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 - Allergy status [...] Personal history of pulmonary embolism - 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 - Upper abdominal pain, unspecified - Allergy status to narcotic agent - Allergy status to narcotic agent - Allergy status to other drugs, medicaments and biological substances - Cyclical vomiting syndrome unrelated to migraine - Pain in left leg 08/12/2020 03:16 [facility] [place] TYPE: Emergency COMPLAINT: - ABDOMENAL PAIN,VOMITING DIAGNOSES: - 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 - Vomiting, unspecified - Allergy status to narcotic agent - Dehydration - Allergy status to other drugs, medicaments and biological substances - Generalized abdominal pain 07/04/2020 07:16 [facility] [place] TYPE: Emergency COMPLAINT: - NECK PAIN NON INJ DIAGNOSES: - Other senior living (current) drug therapy - Allergy status to narcotic agent - Torticollis - Cervicalgia - Allergy status to other drugs, medicaments and biological substances 06/28/2020 16:25 [facility] [place] TYPE: Emergency COMPLAINT: - VOMITING, ABD PAIN DIAGNOSES: - Other senior living (current) drug therapy - Allergy status to narcotic agent - Complex regional pain syndrome I of left lower limb - Elevated white blood cell count, unspecified - Unspecified abdominal pain - Epigastric pain 06/23/2020 16:57 [facility] [place] TYPE: Emergency COMPLAINT: - ABDOMINAL PAIN/VOMITING DIAGNOSES: - Allergy status to narcotic agent - Other senior living (current) drug therapy - Unspecified abdominal pain - Nausea with vomiting, unspecified 06/02/2020 15:[address] [facility] [address] 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 - Allergy status to narcotic agent 05/29/2020 19:40 [facility] [place] TYPE: Emergency COMPLAINT: - ABD PAIN,VOMITING DIAGNOSES: - Allergy status to narcotic agent - Unspecified abdominal pain - Complex regional pain syndrome I of other specified site - Other senior living (current) drug therapy Plus 4 More Visits INPATIENT VISIT TRACKING (12 MO.) 03/23/2020 15:02 [facility] [place] TYPE: Medical Surgical COMPLAINT: - BILATERAL PE DIAGNOSES: - [employer] (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 - Presence of (intrauterine) contraceptive device - Right upper quadrant pain - Complex regional pain syndrome I of left lower limb - Nonspecific elevation of levels of transaminase and lactic acid dehydrogenase [LDH] - Right upper quadrant pain - Interstitial cystitis (chronic) without hematuria - Complex regional pain syndrome I of left lower limb - 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 - Cyclical vomiting syndrome unrelated to migraine - Major depressive disorder, single episode, unspecified - Cyclical vomiting syndrome unrelated to migraine - [facility] (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 - Nonspecific elevation of levels of transaminase and lactic acid dehydrogenase [LDH] - Other pulmonary embolism without acute cor pulmonale - Allergy status to narcotic agent - Presence of (intrauterine) contraceptive device - Other senior living (current) drug therapy - Allergy status to narcotic agent - Major depressive disorder, single episode, unspecified - Opioid dependence, uncomplicated - Opioid dependence, uncomplicated - Interstitial cystitis (chronic) without hematuria [email or web address]
== END 2021-01-26 21:16 | disposition home or self-care (01) ==
LOC: ED 16:38
DX: R11.15 Cyclical vomiting syndrome unrelated to migraine (principal); G89.29 Other chronic pain; R10.13 Epigastric pain; Z86.718 Personal history of other venous thrombosis and embolism; Z88.5 Allergy status to narcotic agent; Z88.8 Allergy status to other drugs, medicaments and biological substances; Z79.899 Other long term (current) drug therapy; Z79.01 Long term (current) use of anticoagulants
CPT/HCPCS: 96374; 96375; 99283-25; J2550; J7030

== ENCOUNTER 2021-03-05 13:49 | Emergency (ER) | payer MEDICARE, OTHER ==
[~2021-03-05] VITALS: Ht 165.1 cm; Wt 100.1 kg
[~2021-03-05 13:49] MED LIST changes: +CIPRO500 MG PO
--- OUTSIDE RECORDS SUMMARY | 2021-03-05 13:52 | XMS ---
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 [place] - Has Care Guidelines - PDMP CARE PROVIDERS [facility] Internal Medicine Current PHONE: [phone] Aron Hannah Anesthesiology: Pain Medicine 07/18/2018-Current PHONE: Unknown Guidelines Source: [facility] Guidelines Date: 08/22/2019 Care Recommendation: PATIENT HAS HISTORY COMPLEX REEGIONAL PAIN SYNDROME WELL CYCLICAL ABDOMINAL PAIN/NAUSEA/VOMITING.\T\nbsp; UNDER TREATMENT WITH ARON HANNAH MD PHD PAIN MANAGMENT [facility].\T\nbsp; FOLLOW THIS REGIMEN WHEN PRESENTING TO ED FOR RESOLUTION OF SYMPTOMS: *HYDRATION IV *HYDROMORPHONE 1MG IV * KETOROLAC 30 MG IV *PROMETHAZINE 25MG IV Additional care guidelines exist for the following facilities: [facility] ( 05/21/2019 ) Care History Medical/Surgical 01/05/2021 [facility] On going care for cyclic vomiting syndrome. 12/31/2020 [facility] Patient has established care at [facility] for consideration of spinal cord stimulator. 12/01/2020 [facility] Follow up visit with Dr. Vazquez on 12/04/2020 [place] VISIT COUNT ([address] MO[address] 25 [facility] H. TOTAL 25 NOTE: Visits indicate total known visits. ED/UCC VISIT TRACKING (12 MO.) 03/05/2021 13:[address] [facility] [address] [facility] [place] TYPE: Emergency COMPLAINT: - ABD PAIN, VOMITING 01/26/2021 16:39 [facility] [place] TYPE: Emergency COMPLAINT: - VOMITING/ ABD PAIN DIAGNOSES: - Epigastric pain - Allergy status to other drugs, medicaments and biological substances - skilled nursing (current) use of anticoagulants - Other longterm (current) drug therapy - Vomiting, unspecified - Allergy status to narcotic agent - Personal history of other venous thrombosis and embolism - Cyclical vomiting syndrome unrelated to migraine - Other chronic pain 01/03/2021 19:58 [facility] [place] TYPE: Emergency COMPLAINT: - NAUSEA PAIN VOMITING DIAGNOSES: - Other longterm (current) drug therapy - Personal history of nicotine dependence - Allergy status to other drugs, medicaments and biological substances - Allergy status to narcotic agent - Cyclical vomiting syndrome unrelated to migraine - 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 - Allergy status to other drugs, medicaments and biological substances - Nausea with vomiting, unspecified - Allergy status to narcotic agent - Epigastric pain 12/09/2020 08:31 [facility] [place] TYPE: Emergency COMPLAINT: - R ARM SWELLING DIAGNOSES: - Allergy status to other drugs, medicaments and biological substances - Allergy status to narcotic agent - 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 - Acute embolism and thrombosis of deep veins of right upper extremity 11/30/2020 00:00 [facility] [place] TYPE: Emergency COMPLAINT: - NAUSEA VOMITING 11/29/2020 18:32 [facility] [place] TYPE: Emergency COMPLAINT: - NAUSEA, VOMITING, STOMACH PAIN DIAGNOSES: - Allergy status to narcotic agent - skilled nursing (current) use of opiate analgesic - Upper abdominal pain, unspecified - Allergy status to other drugs, medicaments and biological substances - Other chronic pain - Unspecified abdominal pain - Nausea with vomiting, unspecified - 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 [facility] [place] [place] TYPE: Emergency COMPLAINT: - ABDOMINAL PAIN DIAGNOSES: - Unspecified abdominal pain - Allergy status to narcotic agent - Complex regional pain syndrome I, unspecified - Other longterm (current) drug therapy - Allergy status to other drugs, medicaments and biological substances - Vomiting, unspecified - Allergy status to narcotic agent - Allergy status to other drugs, medicaments and biological substances 08/23/2020 17:[address] [facility] [address] 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 - Allergy status to other drugs, medicaments and biological substances - Unspecified abdominal pain - Cyclical vomiting syndrome unrelated to migraine - Allergy status to narcotic agent 08/18/2020 15:53 [facility] [place] TYPE: Emergency COMPLAINT: - ABD PAIN, VOMITING DIAGNOSES: - Cyclical vomiting syndrome unrelated to migraine - Allergy status to narcotic agent - Other longterm (current) drug therapy - [...] Personal history of pulmonary embolism - 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 - Upper abdominal pain, unspecified - Allergy status to narcotic agent - Allergy status to narcotic agent - Allergy status to other drugs, medicaments and biological substances - Cyclical vomiting syndrome unrelated to migraine - Pain in left leg 08/12/2020 03:16 [facility] [place] TYPE: Emergency COMPLAINT: - ABDOMENAL PAIN,VOMITING DIAGNOSES: - Other longterm (current) drug therapy - Vomiting, unspecified - Allergy status to narcotic agent - Dehydration - Allergy status to other drugs, medicaments and biological substances - Generalized abdominal pain 07/04/2020 07:16 [facility] [place] TYPE: Emergency COMPLAINT: - NECK PAIN NON INJ DIAGNOSES: - Other longterm (current) drug therapy - Allergy status to narcotic agent - Torticollis - Cervicalgia - Allergy status to other drugs, medicaments and biological substances 06/28/2020 16:25 [facility] [place] TYPE: Emergency COMPLAINT: - VOMITING, ABD PAIN DIAGNOSES: - Other longterm (current) drug therapy - Allergy status to narcotic agent - Complex regional pain syndrome I of left lower limb - Elevated white blood cell count, unspecified - Unspecified abdominal pain - Epigastric pain 06/23/2020 16:57 [facility] [place] TYPE: Emergency COMPLAINT: - ABDOMINAL PAIN/VOMITING DIAGNOSES: - Allergy status to narcotic agent - 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 - Unspecified abdominal pain - Nausea with vomiting, unspecified 06/02/2020 15:35 [facility] [place] TYPE: Emergency COMPLAINT: - ABD PAIN, VOMITING DIAGNOSES: - Allergy status to other drugs, medicaments and biological substances - Unspecified abdominal pain - skilled nursing (current) use of anticoagulants - 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 - Allergy status to narcotic agent Plus 5 More Visits INPATIENT VISIT TRACKING (12 MO.) 03/23/2020 15:02 [facility] [place] TYPE: Medical Surgical COMPLAINT: - BILATERAL PE DIAGNOSES: - 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 - Presence of (intrauterine) contraceptive device - Right upper quadrant pain - Complex regional pain syndrome I of left lower limb - Nonspecific elevation of levels of transaminase and lactic acid dehydrogenase [LDH] - Right upper quadrant pain - Interstitial cystitis (chronic) without hematuria - Complex regional pain syndrome I of left lower limb - Other longterm (current) drug therapy - Cyclical vomiting syndrome unrelated to migraine - Major depressive disorder, single episode, unspecified - Cyclical vomiting syndrome unrelated to migraine - skilled nursing (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 - Nonspecific elevation of levels of transaminase and lactic acid dehydrogenase [LDH] - Other pulmonary embolism without acute cor pulmonale - Allergy status to narcotic agent - Presence of (intrauterine) contraceptive device - Other longterm (current) drug therapy - Allergy status to narcotic agent - Major depressive disorder, single episode, unspecified - Opioid dependence, uncomplicated - Opioid dependence, uncomplicated - Interstitial cystitis (chronic) without hematuria [email or web address]
== END 2021-03-05 18:00 | disposition home or self-care (01) ==
LOC: ED 13:49
DX: R11.2 Nausea with vomiting, unspecified (principal); R10.9 Unspecified abdominal pain; Z88.5 Allergy status to narcotic agent; Z88.8 Allergy status to other drugs, medicaments and biological substances; Z79.899 Other long term (current) drug therapy
CPT/HCPCS: 96374; 96375; 99283-25; C9113; J2550; J7030

== ENCOUNTER 2021-05-05 07:25 | Day surgery (SDC) | payer MEDICARE, OTHER ==
[~2021-05-05] VITALS: Ht 165.1 cm; Wt 95.5 kg
--- NOTE | 2021-05-05 07:58 | NUR ---
IV STARTED BY MERISSA Kern RN
[2021-05-05] MEDS ORDERED: LOVENOX40 MG/0.4 SUB-Q (08:18)
--- NOTE | 2021-05-05 10:26 | NUR ---
PT ALERT, ORIENTED AND VERY FAMILIAR WITH PROCEDURE. GAVE ENCOURAGEMENT, PT REQUESTED PRAYER. WILL FOLLOW NEEDED
[2021-05-05] MEDS ORDERED: OXYCODON-ACETA1 EAC2 PO (11:13)
[2021-05-05] MEDS ORDERED: ACETAMINOPHEN500 MG PO (11:13)
--- NOTE | 2021-05-05 11:13 | NUR ---
05/05/21 1113 Darlin Mtz 1036 PT ARRIVED IN PACU NON RESPONSIVE TO NOXIOUS STIMULI. CHIN LIFT HELD TO KEEP AIRWAY OPEN. 1045 PT'S BUPRENORPHINE PATCH PLACED ON L SHOULDER. 1100 PT REACTIVE. TALKING TO STAFF. 1110 C/O URGE TO VOID. PLACED ON BEDPAN AND VOIDED 300ML+. 1112 SNORING. REU.
--- NOTE | 2021-05-05 12:33 | NUR ---
1215 PT HAS VOIDED TWICE SINCE SHE RETURNED FROM PACU SHE USED BEDSIDE COMMOD, BOTH WERE ABOUT 300ML OF CLEAR YELLOW URINE
--- NOTE | 2021-05-05 13:19 | NUR ---
1245PT CONTINUES TO COMPLAIN OF PAIN 06/23 SHE REPORTS PAIN IS IN HER CHEST AREA WHERE PORTS ARE, ASKED DR FOR IV PAIN MEDS, GAVE DILIAUDID
--- NOTE | 2021-05-05 13:57 | NUR ---
8220 PT AWAKE AND ALERT REPORTS PAIN IS MUCH BETTER AND ASKED TO GET DRESSED, GAVE PT DISCHARGE INSTRUCTIONS, SHE VOICED UNDERSTANDING.
--- NOTE | 2021-05-05 13:58 | NUR ---
1340 PT WALKED TO THE BATHROOM WITHOUT ASSIST, SHE WAS ABLE TO VOID 300ML OF CLEAR YELLOW URINE
--- NOTE | 2021-05-05 21:09 | OR ---
[facility] [address], [place] [address] Signed DATE OF OPERATION: 05/05/2021 SURGEON: May Gomez MD PREOPERATIVE DIAGNOSES: 1. Episodically dysfunctional right internal jugular port device. 2. Underlying chronic pain syndrome including reflex sympathetic dystrophy. 3. Episodic requirement for intravenous fluids and medications for dehydration and pain control. 4. History of right upper extremity and jugular thrombosis. 5. Chronic anticoagulation with Eliquis. POSTOPERATIVE DIAGNOSES: 1. Intact and well-positioned right internal jugular central venous catheter (explanted). 2. Good functioning left subclavian Port-A-Cath device (Bard port catheter). PROCEDURES: 1. Explantation of right internal jugular Bard port catheter. 2. Implantation of left subclavian Bard port catheter. 3. Surgeon-directed fluoroscopy. ANESTHESIA: Local with monitored anesthesia care, Tia Louis CRNA and local 20 mL of 0.25% Marcaine with epinephrine. INDICATION: This 30-year-old white woman has reflex sympathetic dystrophy related to a distant history of ankle injury and repair. She has chronic pain syndrome generally speaking and has been on numerous regimens for her pain control. Initially, she has other complex regional pain problems and associated anxiety. She underwent placement of a right internal jugular Bard port catheter by me several years ago, which appears to be reasonably well positioned, now the tip is somewhat more proximal than usual. It is thought to be episodically dysfunctional and "flipping" though that has never been confirmed with imaging studies or clinical exam. 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 The patient in recent times has required at least twice a week intravenous fluid administration for nausea and vomiting issues; she has undergone appendectomy and cholecystectomy by me in the past. She was thought to have gastroparesis, but recent solid fit emptying study refuted this as a diagnosis. Electronically Signed By: MAY GOMEZ MD 05/05/21 2109 PATIENT NAME: BRODY LINCOLN OPERATIVE REPORT DATE OF : [birth year] REPORT #: [id number] PHYSICIAN: MAY GOMEZ MD PCP: MARCELINO PERRY MD REPORT IS CONFIDENTIAL AND NOT TO BE RELEASED WITHOUT AUTHORIZATION [facility] [address], [place] [address] Signed She is now admitted to undergo explantation of the right internal jugular Port-A-Cath device and implantation of a left subclavian Port-A-Cath device for ongoing management. She understands the risks of bleeding, infection, pneumothorax, and other unforeseen complications related to these procedures and wished to proceed. FINDINGS: Explantation of the right internal jugular Port-A-Cath device was without difficulty. The port was certainly not flipped and appeared to be well positioned within the fibrous capsule over the chest wall. Complete explantation of the catheter tip was noted. Placement of the left subclavian Port-A-Cath device was without difficulty particularly. Tip of the catheter is in the atriocaval junction and is highly functioning. There is no associated complication. Postprocedure chest x-ray shows no pneumothorax or malposition of the catheter. Her truncal obesity, though significant did not impair placement of the device so far as can be told. DESCRIPTION OF PROCEDURE: The patient was brought to the operating room, given a cocktail of intravenous agents. Preoperative antibiotics were administered. Sequential compression device stockings were used. The patient was on bridge therapy with Lovenox, having discontinued Eliquis a few days previously. The upper torso was prepared with a chlorhexidine solution with arms at the side. Marcaine anesthetic was injected transversely in the incision over the right pectoralis. Dissection was carried through the skin and subcutaneous tissue with a #15 blade ultimately encountering the capsule of the device. This was incised with electrocautery. The very well secured and unlikely to have been "flipping" at any time. The catheter was withdrawn from the fibrous capsule noting complete explantation of the catheter including the black tip. The site through which the catheter passed was secured with 2-0 Vicryl suture. The wound was closed in layers of interrupted 2-0 Vicryl after application of additional local anesthetic. The skin was closed with a running subcuticular 3-0 Vicryl. Steri-Strips were applied as was an Acticoat dressing. Attention was then turned towards the left side. The patient was placed in a mild Trendelenburg position. Local anesthetic of Marcaine was injected in the left infraclavicular space as lateral as reasonable. Using the Seldinger technique with a Bard port catheter kit, the left subclavian vein was easily encountered on 1st pass showing dark nonpulsatile blood. A flexible J-wire was passed down the needle. Fluoroscopy was then undertaken showing the wire to be in the right heart system. Additional local anesthetic was injected over the pectoralis area tending toward the Electronically Signed By: MAY GOMEZ MD 05/05/21 210 PATIENT NAME: BRODY LINCOLN OPERATIVE REPORT DATE OF : [birth year] REPORT #: [id number] PHYSICIAN: MAY GOMEZ MD PCP: MARCELINO PERRY MD REPORT IS CONFIDENTIAL AND NOT TO BE RELEASED WITHOUT AUTHORIZATION [facility] [address], [place] [address] Signed medial position, given her obesity. Transverse incision was made and using electrocautery, a pocket was created inferiorly. A Bard port device, which was previously inspecting flushed with heparinized saline was partially secured to the pectoralis. Attention was turned towards the catheter placement itself. An #11 blade was used to incise the skin where the wire emanated from it and subsequently dilator and peel-away sheath introducer passed over it. The dilator and wire were removed showing vigorous dark retrograde nonpulsatile bleeding and a Groshong catheter-type device was passed down the sheath, stabilized and the sheath removed in its entirety. The patient was then placed in a neutral position. Under fluoroscopic control with a small amount of intravenous contrast, the catheter was injected and withdrawn under direct visualization. The tip of the catheter was ascertained to be at the atriocaval junction. The catheter was then delivered to the pocket site with a tunneling device, trimmed to the appropriate length and secured to the port device with a port collar per manufacture's instructions. The port was secured to the pectoralis fascia fully with the interrupted 2-0 Vicryl suture. An angled Clark needle was used to aspirate easily withdraw blood and infuse heparinized saline. Fluoroscopy was then undertaken documenting the tract of the catheter from the port to its position and appeared to be quite optimal. The port was once again accessed and flushed with heparinized saline. The pocket was then closed with interrupted 2-0 Vicryl in a running subcuticular 3-0 Vicryl for skin. The puncture site in the infraclavicular space was similarly secured with interrupted 3-0 Vicryl. Steri-Strips were applied as was a silver sponge dressing (Acticoat type). The patient was then taken to recovery room after emerging from sedation and the postprocedure chest x-ray showed the catheter to be well positioned without sign of dysfunction. Blood loss was less than 10 mL in aggregate. Sponge, needle, and instrument counts were correct x3. May Gomez MD JM/MODL /[id number] Electronically Signed By: MAY GOMEZ MD 05/05/212108 PATIENT NAME: BRODY LINCOLN OPERATIVE REPORT DATE OF : [birth year] REPORT #: [id number] PHYSICIAN: MAY GOMEZ MD PCP: MARCELINO PERRY MD REPORT IS CONFIDENTIAL AND NOT TO BE RELEASED WITHOUT AUTHORIZATION [address] [address] Signed cc: Marcelino Perry MD Copies: MARCELINO PERRY MD ~ Electronically Signed By: AMY GOMEZ MD 05/05/21 2109 PATIENT NAME: BRODY LINCOLN OPERATIVE REPORT DATE OF : [birth year] REPORT #: [id number] PHYSICIAN: MAY GOMEZ MD PCP: MARCELINO PERRY MD REPORT IS CONFIDENTIAL AND NOT TO BE RELEASED WITHOUT AUTHORIZATION
== END 2021-05-05 13:50 | disposition home or self-care (01) ==
LOC: DS 07:25
PROVIDERS: ATTEND Surgery
PROC: 05PY03Z Removal of Infusion Device from Upper Vein, Open Approach (ICD-10-PCS; 2021-05-05)
PROC: 05H633Z Insertion of Infusion Device into Left Subclavian Vein, Percutaneous Approach (ICD-10-PCS; 2021-05-05)
PROC: 0JPT0WZ Removal of Totally Implantable Vascular Access Device from Trunk Subcutaneous Tissue and Fascia, Open Approach (ICD-10-PCS; principal; 2021-05-05 08:00)
PROC: 0JH60WZ Insertion of Totally Implantable Vascular Access Device into Chest Subcutaneous Tissue and Fascia, Open Approach (ICD-10-PCS; 2021-05-05 08:00)
DX: T82.898A Other specified complication of vascular prosthetic devices, implants and grafts, initial encounter (principal); Y71.8 Miscellaneous cardiovascular devices associated with adverse incidents, not elsewhere classified; G89.4 Chronic pain syndrome; G90.50 Complex regional pain syndrome I, unspecified; E86.0 Dehydration; N30.10 Interstitial cystitis (chronic) without hematuria; E66.9 Obesity, unspecified; Z68.37 Body mass index [BMI] 37.0-37.9, adult; Z79.01 Long term (current) use of anticoagulants; Z86.718 Personal history of other venous thrombosis and embolism
CPT/HCPCS: 00532; 71045; 77001; C1788; J0131; J0690; J1100; J1170; J1644; J1885; J2001; J2250; J2405; J2550; J2704; J3475; J7121

== ENCOUNTER 2021-05-16 16:28 | Emergency (ER) | payer MEDICARE, OTHER ==
[~2021-05-16] VITALS: Ht 165.1 cm; Wt 95.5 kg
[~2021-05-16 16:28] MED LIST changes: +ACETAMINOPHEN500 MG PO; +LOVENOX40 MG/0.4 SUB-Q
--- OUTSIDE RECORDS SUMMARY | 2021-05-16 16:30 | XMS ---
PreManage Notification: BRODY LINCOLN Security Paper Ruler Events No recent Security Events currently on file CRITERIA MET - 6 ED Visits in 6 Months - [facility] - Has Care Guidelines - PDMP - Group Notification CARE PROVIDERS [facility] Internal Medicine Current PHONE: [phone] Aron Hannah Anesthesiology: Pain Medicine 07/18/2018-Current PHONE: Unknown Guidelines Source: [facility] Guidelines Date: 08/22/2019 Care Recommendation: PATIENT HAS HISTORY COMPLEX REEGIONAL PAIN SYNDROME WELL CYCLICAL ABDOMINAL PAIN/NAUSEA/VOMITING.\T\nbsp; UNDER TREATMENT WITH ARON AHNNAH MD PHD PAIN MANAGMENT [facility].\T\nbsp; FOLLOW THIS REGIMEN WHEN PRESENTING TO ED FOR RESOLUTION OF SYMPTOMS: *HYDRATION IV *HYDROMORPHONE 1MG IV * KETOROLAC 30 MG IV *PROMETHAZINE 25MG IV Additional care guidelines exist for the following facilities: [facility] ( 05/21/2019 ) Care History Medical/Surgical 01/05/2021 [facility] On going care for cyclic vomiting syndrome. 12/31/2020 [facility] Patient has established care at [facility] for consideration of spinal cord stimulator. 12/01/2020 [facility] Follow up visit with Dr. Vazquez on 12/04/2020 [place] VISIT COUNT (12 MO.) 23 [facility] [place] [facility] TOTAL 23 NOTE: Visits indicate total known visits. ED/UCC VISIT TRACKING (12 MO.) 05/16/2021 16:29 [facility] [place] TYPE: Emergency COMPLAINT: - VOMITING 03/05/2021 13:49 [facility] [place] TYPE: Emergency COMPLAINT: - ABD PAIN, VOMITING DIAGNOSES: - Other prison (current) drug therapy - Nausea with vomiting, unspecified - Unspecified abdominal pain - Allergy status to other drugs, medicaments and biological substances - Allergy status to narcotic agent 01/26/2021 16:39 [facility] [place] TYPE: Emergency COMPLAINT: - VOMITING/ ABD PAIN DIAGNOSES: - Epigastric pain - Allergy status to other drugs, medicaments and biological substances - group home (current) use of anticoagulants - Other intermediate manager (current) drug therapy - Vomiting, unspecified - Allergy status to narcotic agent - Personal history of other venous thrombosis and embolism - Cyclical vomiting syndrome unrelated to migraine - Other chronic pain 01/03/2021 19:58 [facility] [place] TYPE: Emergency COMPLAINT: - NAUSEA PAIN VOMITING DIAGNOSES: - Other intermediate manager (current) drug therapy - Personal history of nicotine dependence - Allergy status to other drugs, medicaments and biological substances - Allergy status to narcotic agent - Cyclical vomiting syndrome unrelated to migraine - group home (current) use of anticoagulants 12/26/2020 14:33 [facility] [place] TYPE: Emergency COMPLAINT: - N/V, ABD PAIN DIAGNOSES: - Nausea with vomiting, unspecified - Complex regional pain syndrome I, unspecified - Unspecified abdominal pain - Personal history of nicotine dependence - Allergy status to other drugs, medicaments and biological substances - Diarrhea, unspecified - Allergy status to narcotic agent - Other intermediate manager (current) drug therapy 12/15/2020 15:53 [facility] [place] TYPE: Emergency COMPLAINT: - ABD PAIN/NAUSEA DIAGNOSES: - Other intermediate manager (current) drug therapy - Allergy status to other drugs, medicaments and biological substances - Nausea with vomiting, unspecified - Allergy status to narcotic agent - Epigastric pain 12/09/2020 08:31 [facility] [place] TYPE: Emergency COMPLAINT: - R ARM SWELLING DIAGNOSES: - Allergy status to other drugs, medicaments and biological substances - Allergy status to narcotic agent - Other prison (current) drug therapy - Acute embolism and thrombosis of deep veins of right upper extremity 11/30/2020 00:[address] [facility] [place] TYPE: Emergency COMPLAINT: - NAUSEA VOMITING 11/29/2020 18:32 [facility] [place] TYPE: Emergency COMPLAINT: - NAUSEA, VOMITING, STOMACH PAIN DIAGNOSES: - Allergy status to narcotic agent - long term care administrator (current) use of opiate analgesic - Upper abdominal pain, unspecified - Allergy status to other drugs, medicaments and biological substances - Other chronic pain - Unspecified abdominal pain - Nausea with vomiting, unspecified - Other prison (current) drug therapy 11/16/2020 10:18 [facility] [place] TYPE: Emergency COMPLAINT: - VOMITING, ABD PAIN DIAGNOSES: - Allergy status to narcotic agent - Allergy status to other drugs, medicaments and biological substances - Interstitial cystitis (chronic) without hematuria - Allergy status to other drugs, medicaments and biological substances - Other prison (current) drug therapy - [...] drugs, medicaments and biological substances - Other prison (current) drug therapy - [...] Allergy status to narcotic agent - Other intermediate manager (current) drug therapy - Allergy status to [...] status to narcotic agent 08/14/2020 18:53 [facility] [place] [...] - Pain in left leg 08/12/2020 03:16 [facility] [place] TYPE: Emergency COMPLAINT: - ABDOMENAL PAIN,VOMITING DIAGNOSES: - Other prison (current) drug therapy [...] - VOMITING, ABD PAIN DIAGNOSES: - Other prison (current) drug therapy [...] abdominal pain - Nausea with vomiting, unspecified Plus 3 More Visits INPATIENT VISIT TRACKING (12 MO.) No inpatient visits to display in this time frame [email or web address]
== END 2021-05-16 18:53 | disposition home or self-care (01) ==
LOC: ED 16:28
DX: G90.522 Complex regional pain syndrome I of left lower limb (principal); R19.7 Diarrhea, unspecified; Z88.5 Allergy status to narcotic agent; Z88.8 Allergy status to other drugs, medicaments and biological substances; Z79.899 Other long term (current) drug therapy
CPT/HCPCS: 80053; 81001; 83690; 85025; 96374; 96375; 99284-25; J2550; J7030

== ENCOUNTER 2021-06-15 07:30 | Day surgery (SDC) | payer MEDICARE, OTHER ==
[~2021-06-15] VITALS: Ht 165.1 cm; Wt 95.5 kg
--- NOTE | 2021-06-15 10:35 | NUR ---
06/15/21 1035 Sheets,Kay 1020 PT ARRIVED TO PACU ON 8L VIA MASK, ORAL AIRWAY IN PLACE AND COMPENSATION DIRECTOR DOING JAW THRUST. VSS. 1021 JAW THURST NO LONGER NEEDED. HEAD TILT TO ONE SIDE AND RESP EVEN AND UNLABORED. 1029 PT WAKES TO TACTILE STIMULI AND STARTS REACHING FOR HER FACE, ORAL AIRWAY REMOVED. PT BACK TO SLEEP. 1031 PT REORIENTED TO PACU, O2 MASK REMOVED. PT REPORTS TO NEED TO VOID AND THEN FALLS EASILY BACK TO SLEEP. RN WILL CONTINUE TO MONITOR. SMALL AMOUNT OF SNORING NOTED.
--- NOTE | 2021-06-15 11:18 | NUR ---
AMBULATED TO BR AT 1112. STEADY ON FEET WITH ONE PERSON STAND BY ASSIST. DENIES NAUSEA. REPORTS URGE TO HAVE A BM. URINATED SCANT URINE IN HAT IN BR. NO BM PRODUCED. RETURNED TO BED AT 1118. POSITIONED FOR COMFORT.
--- NOTE | 2021-06-15 12:29 | NUR ---
STEADY ON FEET FOR AMBULATION TO BR. VOIDS 200 ML ORANGE STAINED URINE. REPORTS PAIN IS DECREASED TO 5/10. PLANNING FOR DISCHARGE
--- NOTE | 2021-06-18 16:18 | OR ---
[facility] [address], [place] [address] Signed DATE OF OPERATION: 06/15/2021 SURGEON: Kamlesh Spence MD PREOPERATIVE DIAGNOSIS: Interstitial cystitis. POSTOPERATIVE DIAGNOSIS: Interstitial cystitis. NAMES OF PROCEDURES: Diagnostic cystoscopy with hydrodistention. ANESTHESIA: General. ESTIMATED BLOOD LOSS: None. COMPLICATIONS: None. SPECIMENS: None. DRAINS: None. INDICATIONS FOR PROCEDURE: Ms. Farah is a very pleasant 31-year-old female with interstitial cystitis, who is well known to me. She has been undergoing routine serial cystoscopies with hydrodistention for the past 2-3 years now. She presents today for another routine hydrodistention. She continues to take Eliquis after developing blood clots in her lungs and extremities. She has been experiencing her usual pelvic floor discomfort along with suprapubic pain, but denies any gross hematuria symptoms. No fevers or chills. OPERATIVE FINDINGS: On cystoscopy, there was no evidence of any suspicious masses, lesions, or stones. Bilateral ureteral orifices are in their normal anatomic location and effluxing clear Electronically Signed By: KAMLESH SPENCE MD 06/18/21 1618 PATIENT NAME: BRODY FARAH OPERATIVE REPORT DATE OF : [birth year] REPORT #: [id number] PHYSICIAN: KAMLESH SPENCE MD PCP: MARCELINO PERRY MD REPORT IS CONFIDENTIAL AND NOT TO BE RELEASED WITHOUT AUTHORIZATION [facility] [address] [place], [place] [address] Signed urine. 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 This is unchanged in appearance. Otherwise, her bladder looks markedly improved compared to previous distentions. Overall, the appearance of her bladder has been improving fairly consistently since she has gone off her intranasal ketamine. The patient's bladder was distended with a total of 500 mL of saline for a total of 9 minutes. DESCRIPTION OF PROCEDURE: After informed consent was obtained, the patient was taken back to the operating room. She was transferred from the [facility] to the operating room table, where general anesthesia was induced. She was placed in the dorsal lithotomy position and genitalia prepped and draped in a standard sterile fashion. Using a 30-degree lens on 22.5 Greenlandic introducer, rigid cystoscope was inserted through the urethra and into her bladder under direct visualization. Panendoscopic views of the bladder were then obtained. Please see above findings. The patient's bladder was then filled to capacity and remained there for a total of 9 minutes. The patient's bladder was then drained for a total of 500 mL. Repeat cystoscopy was performed and I did not appreciate any overt hemorrhaging or Hunner's ulcers. The patient's bladder was then drained again and the procedure was completed. The patient tolerated the procedure well without any complication. She will now be transferred to the postanesthesia care unit in stable condition. Disposition: I left a message for Brody on her voicemail per her request explaining how everything went during today's procedure. She will be sent home with oxycodone 10 mg one tablet p.o. q.6 hours p.r.n. pain, dispense #40 along with Phenergan 25 mg p.o. q.6 hours p.r.n. nausea and vomiting. She was also given a prescription for Cipro 500 mg p.o. b.i.d. for a total of 10 days. She will be scheduled to return to clinic in approximately three months to fill out paperwork in preparation for her next hydrodistention. Kamlesh Spence MD AR/MODL /[id number] Electronically Signed By: KAMLESH SPENCE MD 06/18/21 1618 PATIENT NAME: BRODY FARAH OPERATIVE REPORT DATE OF : [birth year] REPORT #: [id number] PHYSICIAN: KAMLESH SPENCE MD PCP: MARCELINO PERRY MD REPORT IS CONFIDENTIAL AND NOT TO BE RELEASED WITHOUT AUTHORIZATION [address] [place], [place] [address] Signed Copies: ~ Electronically Signed By: KAMLESH SPENCE MD 06/18/21 1618 PATIENT NAME: BRODY FARAH OPERATIVE REPORT DATE OF : [birth year] REPORT #: [id number] PHYSICIAN: KAMLESH SPENCE MD PCP: MARCELINO PERRY MD REPORT IS CONFIDENTIAL AND NOT TO BE RELEASED WITHOUT AUTHORIZATION
== END 2021-06-15 12:35 | disposition home or self-care (01) ==
LOC: DS 07:30 → OPS 07:30 → DS 09:30 → OPS 09:30
PROVIDERS: ATTEND Urology
PROC: 0T7B8ZZ Dilation of Bladder, Via Natural or Artificial Opening Endoscopic (ICD-10-PCS; principal; 2021-06-15 09:30)
DX: N30.10 Interstitial cystitis (chronic) without hematuria (principal); Z79.01 Long term (current) use of anticoagulants; Z86.711 Personal history of pulmonary embolism; Z86.16 Personal history of COVID-19; Z88.5 Allergy status to narcotic agent; Z88.8 Allergy status to other drugs, medicaments and biological substances
CPT/HCPCS: 00910; J0690; J1100; J1170; J1885; J2250; J2405; J2704; J2765; J3010; J7121

== ENCOUNTER 2021-06-19 12:24 | Emergency (ER) | payer MEDICARE, OTHER ==
[~2021-06-19] VITALS: Ht 165.1 cm; Wt 104.6 kg
--- OUTSIDE RECORDS SUMMARY | 2021-06-19 12:32 | XMS ---
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 No recent Security Events currently on file CRITERIA MET - 6 ED Visits in 6 Months - [facility] - Has Care Guidelines - Group Notification CARE PROVIDERS [facility] Internal Medicine Current PHONE: [phone] Aron Hannah Anesthesiology: Pain Medicine 07/18/2018-Current PHONE: Unknown Guidelines Source: [facility] Guidelines Date: 08/22/2019 Care Recommendation: PATIENT HAS HISTORY COMPLEX REEGIONAL PAIN SYNDROME WELL CYCLICAL ABDOMINAL PAIN/NAUSEA/VOMITING.\T\nbsp; UNDER TREATMENT WITH ARON HANNAH MD PHD PAIN MANAGMENT [facility].\T\nbsp; FOLLOW THIS REGIMEN WHEN PRESENTING TO ED FOR RESOLUTION OF SYMPTOMS: *HYDRATION IV *HYDROMORPHONE 1MG IV * KETOROLAC 30 MG IV *PROMETHAZINE 25MG IV Additional care guidelines exist for the following facilities: [facility] ( 05/21/2019 ) Care History Medical/Surgical 01/05/2021 [facility] On going care for cyclic vomiting syndrome. 12/31/2020 [facility] Patient has established care at [facility] for consideration of spinal cord stimulator. 12/01/2020 [facility] Follow up visit with Dr. Vazquez on 12/04/2020 [place] VISIT COUNT (12 MO.) 21 [facility] H. TOTAL 21 NOTE: Visits indicate total known visits. ED/UCC VISIT TRACKING (12 MO.) 06/19/2021 12:[address] [facility] [place] TYPE: Emergency COMPLAINT: - VOMITING,ABD PAIN 05/16/2021 16:[address] [facility] [place] TYPE: Emergency COMPLAINT: - VOMITING DIAGNOSES: - Other halfway (current) drug therapy - Complex regional pain syndrome I of left lower limb - Allergy status to narcotic agent - Right upper quadrant pain - Diarrhea, unspecified - Allergy status to other drugs, medicaments and biological substances 03/05/2021 13:[address] [facility] [place] TYPE: Emergency COMPLAINT: - ABD PAIN, VOMITING DIAGNOSES: - Other terminal worker (current) drug therapy - Nausea with vomiting, unspecified - Unspecified abdominal pain - Allergy status to other drugs, medicaments and biological substances - Allergy status to narcotic agent 01/26/2021 16:[address] [facility] [place] TYPE: Emergency COMPLAINT: - VOMITING/ ABD PAIN DIAGNOSES: - Epigastric pain - Allergy status to other drugs, medicaments and biological substances - correction (current) use of anticoagulants - Other terminal worker (current) drug therapy - Vomiting, unspecified - Allergy status to narcotic agent - Personal history of other venous thrombosis and embolism - Cyclical vomiting syndrome unrelated to migraine - Other chronic pain 01/03/2021 19:[address] [facility] [place] TYPE: Emergency COMPLAINT: - NAUSEA PAIN VOMITING DIAGNOSES: - Other terminal worker (current) drug therapy - Personal history of nicotine dependence - Allergy status to other drugs, medicaments and biological substances - Allergy status to narcotic agent - Cyclical vomiting syndrome unrelated to migraine - correction (current) use of anticoagulants 12/26/2020 14:[address] [facility] [place] TYPE: Emergency COMPLAINT: - N/V, ABD PAIN DIAGNOSES: - Nausea with vomiting, unspecified - Complex regional pain syndrome I, unspecified - Unspecified abdominal pain - Personal history of nicotine dependence - Allergy status to other drugs, medicaments and biological substances - Diarrhea, unspecified - Allergy status to narcotic agent - Other halfway (current) drug therapy 12/15/2020 15:[address] [facility] [place] TYPE: Emergency COMPLAINT: - ABD PAIN/NAUSEA DIAGNOSES: - Other halfway (current) drug therapy - Allergy status to other drugs, medicaments and biological substances - Nausea with vomiting, unspecified - Allergy status to narcotic agent - Epigastric pain 12/09/2020 08:31 [facility] [place] TYPE: Emergency COMPLAINT: - R ARM SWELLING DIAGNOSES: - Allergy status to other drugs, medicaments and biological substances - Allergy status to narcotic agent - Other halfway (current) drug therapy - Acute embolism and thrombosis of deep veins of right upper extremity 11/30/2020 00:00 [facility] [place] TYPE: Emergency COMPLAINT: - NAUSEA VOMITING 11/29/2020 18:32 [facility] [place] TYPE: Emergency COMPLAINT: - NAUSEA, VOMITING, STOMACH PAIN DIAGNOSES: - Allergy status to narcotic agent - long term acute care registered nurse (current) use of opiate analgesic - Upper abdominal pain, unspecified - Allergy status to other drugs, medicaments and biological substances - Other chronic pain - Unspecified abdominal pain - Nausea with vomiting, unspecified - Other terminal worker (current) drug therapy 11/16/2020 10:18 [facility] [place] TYPE: Emergency COMPLAINT: - VOMITING, ABD PAIN DIAGNOSES: - Allergy status to narcotic agent - Allergy status to other drugs, medicaments and biological substances - Interstitial cystitis (chronic) without hematuria - Allergy status to other drugs, medicaments and biological substances - Other halfway (current) drug therapy - [...] medicaments and biological substances - Other terminal worker (current) drug therapy - Allergy status to narcotic agent - Nausea 09/25/2020 15:19 [facility] [place] TYPE: Emergency COMPLAINT: - ABD PAIN, NAUSEA, VOMITING DIAGNOSES: - Unspecified abdominal pain - Generalized abdominal pain - Allergy status to narcotic agent - Allergy status to other drugs, medicaments and biological substances - Allergy status to narcotic agent - Other terminal worker (current) drug therapy - Allergy status to other drugs, medicaments and biological substances 09/20/2020 11:36 [facility] [place] TYPE: Emergency COMPLAINT: - ABDOMINAL PAIN DIAGNOSES: - Unspecified abdominal pain - Allergy status to narcotic agent - Complex regional pain syndrome I, unspecified - Other terminal worker (current) drug therapy - Allergy status to [...] status to narcotic agent - Other terminal worker (current) drug therapy - Allergy status to other drugs, medicaments and biological substances - Unspecified abdominal pain - Cyclical vomiting syndrome unrelated to migraine - Allergy status to narcotic agent 08/18/2020 15:53 [facility] [place] TYPE: Emergency COMPLAINT: - ABD PAIN, VOMITING DIAGNOSES: - Cyclical vomiting syndrome unrelated to migraine - Allergy status to narcotic agent - Other terminal worker (current) drug therapy - Allergy status to [...] Personal history of pulmonary embolism - Other terminal worker (current) drug therapy - Upper abdominal pain, unspecified - Allergy status to narcotic agent - Allergy status to narcotic agent - Allergy status to other drugs, medicaments and biological substances - Cyclical vomiting syndrome unrelated to migraine - Pain in left leg 08/12/2020 03:16 [facility] [place] TYPE: Emergency COMPLAINT: - ABDOMENAL PAIN,VOMITING DIAGNOSES: - Other terminal worker (current) drug therapy - Vomiting, unspecified - Allergy status to narcotic agent - Dehydration - Allergy status to other drugs, medicaments and biological substances - Generalized abdominal pain 07/04/2020 07:16 [facility] [place] TYPE: Emergency COMPLAINT: - NECK PAIN NON INJ DIAGNOSES: - Other terminal worker (current) drug therapy - Allergy status to narcotic agent - Torticollis - Cervicalgia - Allergy status to other drugs, medicaments and biological substances 06/28/2020 16:25 [facility] [place] TYPE: Emergency COMPLAINT: - VOMITING, ABD PAIN DIAGNOSES: - Other halfway (current) drug therapy - Allergy status to narcotic agent - Complex regional pain syndrome I of left lower limb - Elevated white blood cell count, unspecified - Unspecified abdominal pain - Epigastric pain Plus 1 More Visit INPATIENT VISIT TRACKING (12 MO.) No inpatient visits to display in this time frame [email or web address]
== END 2021-06-19 19:04 | disposition home or self-care (01) ==
LOC: ED 12:24
DX: G90.522 Complex regional pain syndrome I of left lower limb (principal); R79.89 Other specified abnormal findings of blood chemistry; Z88.8 Allergy status to other drugs, medicaments and biological substances; Z88.5 Allergy status to narcotic agent; Z79.899 Other long term (current) drug therapy
CPT/HCPCS: 80053; 81001; 83735; 84703; 85025; 96374; 99284-25; J2550

== ENCOUNTER 2021-07-19 17:22 | Inpatient (IN) | payer MEDICARE, OTHER ==
[~2021-07-19] VITALS: Ht 165.1 cm; Wt 100.7 kg
--- OUTSIDE RECORDS SUMMARY | 2021-07-19 17:24 | XMS ---
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 Internal Medicine Current PHONE: [phone] Aron Hannah Anesthesiology: Pain Medicine 07/18/2018-Current PHONE: Unknown Guidelines Source: [facility] Guidelines Date: 08/22/2019 Care Recommendation: PATIENT HAS HISTORY COMPLEX REEGIONAL PAIN SYNDROME WELL CYCLICAL ABDOMINAL PAIN/NAUSEA/VOMITING.\T\nbsp; UNDER TREATMENT WITH ARON HANNAH MD PHD PAIN MANAGMENT [facility].\T\nbsp; FOLLOW THIS REGIMEN WHEN PRESENTING TO ED FOR RESOLUTION OF SYMPTOMS: *HYDRATION IV *HYDROMORPHONE 1MG IV * KETOROLAC 30 MG IV *PROMETHAZINE 25MG IV Additional care guidelines exist for the following facilities: [facility] ( 05/21/2019 ) Care History Medical/Surgical 01/05/2021 [facility] On going care for cyclic vomiting syndrome. 12/31/2020 [facility] Patient has established care at [facility] for consideration of spinal cord stimulator. 12/01/2020 [facility] Follow up visit with Dr. Vazquez on 12/04/2020 [place] VISIT COUNT ([address] MO[address] 19 [facility] H. TOTAL 19 NOTE: Visits indicate total known visits. ED/UCC VISIT TRACKING (12 MO.) 07/19/2021 17:22 [facility] [place] TYPE: Emergency COMPLAINT: - SHORT OF BREATH,CHEST PAIN 06/19/2021 12:25 [facility] [place] TYPE: Emergency COMPLAINT: - VOMITING,ABD PAIN DIAGNOSES: - Allergy status to other drugs, medicaments and biological substances - Complex regional pain syndrome I of left lower limb - Other specified abnormal findings of blood chemistry - Allergy status to narcotic agent - Other fdc (current) drug therapy - Epigastric pain 05/16/2021 16:29 [facility] [place] TYPE: Emergency COMPLAINT: - VOMITING DIAGNOSES: - Other bed bug exterminator (current) drug therapy - Complex regional pain syndrome I of left lower limb - Allergy status to narcotic agent - Right upper quadrant pain - Diarrhea, unspecified - Allergy status to other drugs, medicaments and biological substances 03/05/2021 13:[address] [facility] [place] TYPE: Emergency COMPLAINT: - ABD PAIN, VOMITING DIAGNOSES: - Other bed bug exterminator (current) drug therapy - Nausea with vomiting, unspecified - Unspecified abdominal pain - Allergy status to other drugs, medicaments and biological substances - Allergy status to narcotic agent 01/26/2021 16:39 [facility] [place] TYPE: Emergency COMPLAINT: - VOMITING/ ABD PAIN DIAGNOSES: - Epigastric pain - Allergy status to other drugs, medicaments and biological substances - long term care social worker (current) use of anticoagulants - Other bed bug exterminator (current) drug therapy - Vomiting, unspecified - Allergy status to narcotic agent - Personal history of other venous thrombosis and embolism - Cyclical vomiting syndrome unrelated to migraine - Other chronic pain 01/03/2021 19:58 [facility] [place] TYPE: Emergency COMPLAINT: - NAUSEA PAIN VOMITING DIAGNOSES: - Other fdc (current) drug therapy - Personal history of nicotine dependence - Allergy status to other drugs, medicaments and biological substances - Allergy status to narcotic agent - Cyclical vomiting syndrome unrelated to migraine - long term care social worker (current) use of anticoagulants 12/26/2020 14:33 [facility] [place] TYPE: Emergency COMPLAINT: - N/V, ABD PAIN DIAGNOSES: - Nausea with vomiting, unspecified - Complex regional pain syndrome I, unspecified - Unspecified abdominal pain - Personal history of nicotine dependence - Allergy status to other drugs, medicaments and biological substances - Diarrhea, unspecified - Allergy status to narcotic agent - Other bed bug exterminator (current) drug therapy 12/15/2020 15:53 [facility] [place] TYPE: Emergency COMPLAINT: - ABD PAIN/NAUSEA DIAGNOSES: - Other bed bug exterminator (current) drug therapy - Allergy status [...] - Other fdc (current) drug therapy - Acute embolism and thrombosis of deep veins of right upper extremity 11/30/2020 00:00 [facility] [place] TYPE: Emergency COMPLAINT: - NAUSEA VOMITING 11/29/2020 18:32 [facility] [place] TYPE: Emergency COMPLAINT: - NAUSEA, VOMITING, STOMACH PAIN DIAGNOSES: - Allergy status to narcotic agent - shelter (current) use of opiate analgesic - Upper abdominal pain, unspecified - Allergy status to other drugs, medicaments and biological substances - Other chronic pain - Unspecified abdominal pain - Nausea with vomiting, unspecified - Other fdc (current) drug therapy 11/16/2020 10:18 [facility] [place] TYPE: Emergency COMPLAINT: - VOMITING, ABD PAIN DIAGNOSES: - Allergy status to narcotic agent - Allergy status to other drugs, medicaments and biological substances - Interstitial cystitis (chronic) without hematuria - Allergy status to other drugs, medicaments and biological substances - Other bed bug exterminator (current) drug therapy - Allergy status [...] drugs, medicaments and biological substances - Other bed bug exterminator (current) drug therapy - Allergy status to narcotic agent - Nausea 09/25/2020 15:[address] [facility] [place] TYPE: Emergency COMPLAINT: - ABD PAIN, NAUSEA, VOMITING DIAGNOSES: - Unspecified abdominal pain - Generalized abdominal pain - Allergy status to narcotic agent - Allergy status to other drugs, medicaments and biological substances - Allergy status to narcotic agent - Other fdc (current) drug therapy - Allergy status to other drugs, medicaments and biological substances [facility]20[facility]2020 [facility] COMPLAINT: - ABDOMINAL PAIN DIAGNOSES: - Unspecified abdominal pain - Allergy status to narcotic agent - Complex regional pain syndrome I, unspecified - Other bed bug exterminator (current) drug therapy - Allergy status to other drugs, medicaments and biological substances - Vomiting, unspecified - Allergy status to narcotic agent - Allergy status to other drugs, medicaments and biological substances 08/23/2020 17:35 [facility] [place] [facility] COMPLAINT: - ABD [...] Personal history of pulmonary embolism - Other bed bug exterminator (current) drug therapy - Upper abdominal pain, unspecified - Allergy status to narcotic agent - Allergy status to narcotic agent - Allergy status to other drugs, medicaments and biological substances - Cyclical vomiting syndrome unrelated to migraine - Pain in left leg 08/12/2020 03:16 [facility] [place] TYPE: Emergency COMPLAINT: - ABDOMENAL PAIN,VOMITING DIAGNOSES: - Other bed bug exterminator (current) drug therapy - Vomiting, unspecified - Allergy status to narcotic agent - Dehydration - Allergy status to other drugs, medicaments and biological substances - Generalized abdominal pain INPATIENT VISIT TRACKING (12 MO.) No inpatient visits to display in this time frame [email or web address]
--- NOTE | 2021-07-20 00:01 | NUR ---
TELEPHONE REPORT RECIEVED FROM ED RN BEAR. QUESTIONS ANSWERED, AWAITING pt's ARRIVAL TO FLOOR.
--- NOTE | 2021-07-20 00:39 | NUR ---
pt ARRIVED TO THE FLOOR, SBA FROM ED STRETCHER TO BED. VSS, pt ON RA. CPOX IN PLACE. pt ORIENTED TO ROOM, RN SHERMAN IN ROOM COMPLETING QUICK ADMISSION. IV TO LEFT UPPER ARM FLUSHES EASILY AND WNL. LEFT PORT-A-CATH DRESSING C/D/I, FLUSHES EASILY. BRISK BLOOD RETURN NOTED AFTER SOME CHANGES IN POSITIONS AND GYMNASTICS. FLUSHED WITH SALINE PER POLICY. NO FURTHER NEEDS, CALL LIGHT IN REACH.
--- NOTE | 2021-07-20 02:00 | NUR ---
pt HERE FOR BILATERAL PE'S. LEFT PORT-A-CATH ACCESED IN ED. PER TRIXIE GIL TO HEP LOCK PORT-A-CATH PER POLICY. PORT-A-CATH HEP LOCKED PER POLICY AT THIS TIME. pt UP TO VOID, BACK IN BED. CPOX IN PLACE. NO FURTHER NEEDS, CALL LIGHT IN REACH.
--- NOTE | 2021-07-20 03:45 | NUR ---
ROUNDED ON pt, pt AWAKE AND RESTING IN BED. RECENTLY RETURNED FROM BATHROOM, SAPNA NIKHILAYDEE JUST OUT OF ROOM. NO NEEDS VERBALIZED, CALL LIGHT IN REACH. CPOX IN PLACE, pt ON RA. SPO2 AND HR WNL. NO DISTRESS NOTED.
--- NOTE | 2021-07-20 05:30 | NUR ---
call light answered, prn nausea medication given (phenergen) per policy. iv site wnl, PT denies pain when flushing. scheduled protonix also given. call light in reach.
--- NOTE | 2021-07-20 07:43 | NUR ---
REPORT RECIEVED FROM ETCHER PHOTOENGRAVING RNEMIL.
--- NOTE | 2021-07-20 08:45 | NUR ---
PT STILL ASLEEP IN ROOM. CALL LIGHT WITHIN REACH. WHITE BOARD UPDATED. WILL CHECK BACK LATER.
--- NOTE | 2021-07-20 08:46 | NUR ---
MORNING ASSESSMENT DONE. PATIENT RATES LEFT ARM PAIN, NOTABLY MORE DISCOMFORT THAN YESTERDAY. PATIENT GIVEN 10MG OXYCODONE FOR GENERAL PAIN. MORNING MEDICATIONS GIVEN, PATIENT IS SITTING UP IN BED, ORDERED BREAKFAST. PATIENT IS 99% ON ROOM AIR.
--- NOTE | 2021-07-20 13:38 | NUR ---
PATIENT REPORTS THAT SHE IS FEELING BETTER, SIPPING SOME BROTH. NOTIFIED DR. PERRY THAT PATIENT ENDORSED SHE WAS DUE FOR HER OUTPATIENT BOLUS AND MEDICATIONS TOMORROW.
[2021-07-20] MEDS ORDERED: PROMETHAZINE HC25 M1 PO (14:08)
--- NOTE | 2021-07-20 15:06 | NUR ---
PATIENT IS SLEEPING WITH REGULAR RESPIRATIONS. LR BOLUS IS INFUSING TO LEFT PORT.
--- NOTE | 2021-07-20 15:53 | EKG ---
[facility] [address] [place], [place] [address] Signed Sinus tachycardia Otherwise normal ECG When compared with ECG of 15-DEC-2020 20:53, No significant change was found Confirmed by MARCELINO PERRY MD ([id number]) on 07/20/2021 3:53:25 PM Electronically Signed By: MARCELINO PERRY MD 07/20/21 1553 PATIENT NAME: BRODY LINCOLN Electrocardiogram DATE OF : [birth year] PHYSICIAN: MARCELINO PERRY MD REPORT #: [id number] REPORT IS CONFIDENTIAL AND NOT TO BE RELEASED WITHOUT AUTHORIZATION
--- NOTE | 2021-07-20 16:25 | NUR ---
PATIENT IS RESTING IN BED, REPORTS THAT HER APPETITE IS BETTER, NAUSEA IS BETTER, IS HAVING JUICE AND CRACKERS.
--- NOTE | 2021-07-20 17:55 | NUR ---
PATIENT ATE DINNER WELL, GIVEN SCHEDULED PHENERGAN AND BOLUS. PATIENT HAD 500ML VOID. P.O. PAIN MEDICATIONS GIVEN.
--- NOTE | 2021-07-20 19:15 | NUR ---
SHIFT REPORT FROM NURSE GANDARA. PT DENIES NEEDS AT THIS TIME. CALL LIGHT WITHIN REACH.
--- NOTE | 2021-07-20 20:44 | NUR ---
ROUNDS: PT IS IN BED, HAS QUESTIONS ABOUT WHEN LAST PHENERGAN WAS GIVEN. FRESH ICE PROVIDED. PT DENIES NEEDS AT THIS TIME. CALL LIGHT WITHIN REACH
--- NOTE | 2021-07-20 21:30 | NUR ---
IN ROOM FOR MEDS AND ASSESSMENT. PT IS AWAKE; PT STATES SHE HAS ONGOING SOB FROM CURRENT DIAGNOSIS. RLL HAS CRACKLES, PT ENCOURAGED TO USE I.S. CMS INTACT, BOWEL TONES ACTIVE. PT HAS EXTREME SENSITIVITY IN LT FOOT; ONGOING/CHRONIC. SPO2 ON RA MID 90S. PT WOULD LIKE TO BE WOKEN UP WHEN PRN PAIN MEDS AND PHENERGAN IS AVAILABLE. CALL LIGHT WITHIN REACH
--- NOTE | 2021-07-20 22:45 | NUR ---
PATIENT CALLED FOR WARM BLANKET. PROVIDED.
--- NOTE | 2021-07-20 23:30 | NUR ---
PER PT REQUEST, PRN OXYCODONE AND PHENERGAN BROUGHT TO PT. PT REPORTS PAIN IN UPPER ABDOMEN/LUNGS/LEGS 06/23. IV PHENERGAN ADMINISTERED VIA PUMP. PT REQUESTS WARM BLANKET AND ICE CHIPS. NO FURTHER NEEDS AT THIS TIME.
--- NOTE | 2021-07-21 03:17 | NUR ---
ROUNDS: PT APPEARS TO BE SLEEPING; EYES CLOSED, EVEN RR NOTED. CALL LIGHT WITHIN REACH.
--- NOTE | 2021-07-21 05:55 | NUR ---
IN ROOM FOR MORNING VITALS AND PRN MEDS. PT WOULD LIKE TO BE KEPT ON A PAIN MED SCHEDULE. PRN 10MG OXYCODONE ALONG WITH 12.5MG PHENERGAN ADMINISTERED AT THIS TIME. CALL DESTINY MAGUIRE
--- NOTE | 2021-07-21 07:54 | NUR ---
REPORT RECIEVED FROM FORTUNATO PACK. PT AWAKE AND UP WALKING IN [place].
--- NOTE | 2021-07-21 08:12 | NUR ---
PT AWAKE IN ROOM. PT UP FOR AN INDEPENDENT WALK IN THE HALLS. PT IS INDEPENDENT IN ROOM. TOOTHBRUSH, TOOTHPASTE, SOAP, WASHCLOTHS AND TOWELS PROVIDED. PT PLANS A SHOWER LATER TODAY. NO FURTHER NEEDS AT THIS TIME.
--- NOTE | 2021-07-21 08:44 | NUR ---
PT ATE BREAKFAST AND IS FEELING GOOD. LUNGS CLEAR THROUGHOUT. PT INJECTED LOVENOX HERSELF WO DIFFICULTY.
--- NOTE | 2021-07-21 10:33 | NUR ---
PT AWAKE IN ROOM WATCHING TV. CALL LIGHT WITHIN REACH. FRESH ICE WATER GIVEN. NO FURTHER NEEDS AT THIS TIME.
--- NOTE | 2021-07-21 11:15 | NUR ---
Spoke with Tracie, she lives in the basement of her parents home. This has been problematic as she is sob when climbing the stairs. She plan s on returning to her home. States she could stay upstairs if needed, but plans on returning to the basement. She has a cane, when her pain is severe in her foot. She denies need for other DME. She drives and has a car. Plans on having mom drive until she feels better. Denies financial needs. She is in need of a Sharps container and encouraged to get when she picks up her [employer] from [employer]. Pt denies other needs and plans on dc to home with mom to assist
--- NOTE | 2021-07-21 11:50 | NUR ---
THIS RN IN PTS ROOM TO PROVIDE PT WITH REQUESTED PAIN MEDS AND NAUSEA MEDS. THIS RN PROVIDED PT WITH 12.5MG OF PHENERGAN AND 10MG OF OXY. PTS MOM IN ROOM AT BEDSIDE AT THIS TIME. PT REPORTS THAT SHE DOES HAVE SOME SOB WITH MOVEMENT.
--- NOTE | 2021-07-21 12:28 | NUR ---
PATIENT SITTING UP AND VISITING WITH FAMILY. NOON MEDICATION GIVEN.
--- NOTE | 2021-07-21 13:15 | NUR ---
PT SITTING UP IN BED EATING LUNCH. THOUGHT SHE COULD EAT A QUESIDILLA BUT ONLY TOLERATING MASHED POTATOES. DENIES CONCERNS. STATES SHE HAS BEEN HAPPY WITH HER CARE.
--- NOTE | 2021-07-21 16:07 | NUR ---
PT APPEARS TO BE SLEEPING WITH EYE MASK IN PLACE.
--- NOTE | 2021-07-21 18:17 | NUR ---
PT AWAKE IN ROOM. PT REPORTS NAUSEA AND PAIN. RN BRYN NOTIFIED. NO FURTHER NEEDS AT THIS TIME
--- NOTE | 2021-07-21 18:54 | NUR ---
ADMINISTERED SCHEDULED AND PRN MEDS. PT SITTING UP IN ;BED HAVING HAIR BRAIDED BY SAPNA SUAREZ. WARMED PT'S DINNER. DENIES NEEDING ANYTHING FURTHER.
--- NOTE | 2021-07-21 19:35 | NUR ---
pt UP AMBULATING IN HALLWAY. REQUESTING WARM BLANKETS. SAPNA BISHOP TO DELIVER AT THIS TIME. REPORT RECEIEVED FROM FORTUNATO CLEMENTE.
--- NOTE | 2021-07-21 19:50 | NUR ---
WARM BLANKET, FRESH GOWN AND WARM WIPES PROVIDED.
--- NOTE | 2021-07-21 21:20 | NUR ---
pt AWAKE RESTING IN BED. COMPLAINS OF 7/10 PAIN, PAINFUL TO DEEP BREATHE. IS USE ENCOURAGED. LUNG SOUNDS COARSE RLL. SPO2 WNL ON RA. PORT HEP LOCKED. IV SITE FLUSHED WNL. pt REQUESTING TO WAIT FOR ADDITIONAL PAIN MEDICATION UNTIL MIDNIGHT (NEXT AVAILABLE DOSE). CALL LIGHT AND PERSONAL SUPPLIES IN REACH.
--- NOTE | 2021-07-22 00:52 | NUR ---
CALL LIGHT ANSWERED. pt UP INDEPENDENTLY TO RESTROOM FOR VOID. BACK IN BED. RATES PAIN 7/10 IN RIGHT SIDE, BACK, LUNGS. PRN PAIN MEDICATION ADMINISTERED. pt STATES "10 MG DOESN'T CUT IT" REQUESTING MAX PAIN DOSE. ADMINISTERED AT THIS TIME. PRN NAUSEA MEDICATION ADMINISTERED REQUESTED. CALL LIGHT IN REACH. TRAY TABLE CLEARED.
--- NOTE | 2021-07-22 03:26 | NUR ---
CHECKED ON pt. RESTING IN BED WITH EYES CLOSED, BREATHING EQUAL AND UNLABORED, RR 16. LIGHTS OFF IN ROOM.
--- NOTE | 2021-07-22 04:50 | NUR ---
pt AMBULATING IN HALLWAY AT THIS TIME TO NURSES STATION. ICE PACKS PROVIDED REQUESTED. NO ADDITIONAL NEEDS.
--- NOTE | 2021-07-22 06:54 | NUR ---
pt SLEEPING, AWAKENS TO VOICE. RATES PAIN 7/10 IN RIGHT SIDE, LUNGS UPON AWAKENING. DEMONSTRATES IS USE. LUNG SOUNDS CLEAR THROUGHOUT ALL LOBES AT THIS TIME. pt C/O NAUSEA. PRN NAUSEA AND PAIN MEDICATION ADMINISTERED. INDEPENDENT TO RESTROOM FOR VOID AND BACK TO BED. CALL LIGHT IN REACH.
--- NOTE | 2021-07-22 07:30 | NUR ---
BEDSIDE REPORT FROM MIGUEL BUCIO, PT RESTING IN BED ALERT AND ORIENTED. SHE REPORTS PAIN AT RIGHT FLANK WITH MOVING.
--- NOTE | 2021-07-22 07:30 | NUR ---
PT WAS IN BED. WHITEBOARD WAS UPDATED. PT DECLINED WARM WASHCLOTH FOR FACE. CALL LIGHT IS WITHIN REACH. NO FURTHER NEEDS AT THIS TIME.
--- NOTE | 2021-07-22 08:00 | NUR ---
PT REFUSED TO GET UP IN RECLINER FOR BREAKFAST. PT NOW HAS BREAKFAST. PT ALSO REFUSED A SHOWER FOR TODAY. CALL LIGHT IS WITHIN REACH. NO FURTHER NEEDS AT THIS TIME.
--- NOTE | 2021-07-22 08:54 | NUR ---
PATIENT REPORTING 9/10 PAIN UNDER RIGHT BREAST/RIGHT NECK. MEDICATION CHECK, PATIENT HAD 20MG OF OXYCODONE AT 0642, ATTEMPTED TO GIVEN MORNING MEDICATIONS AND PATIENT REFUSED, "I NEED SOMETHING STRONGER." NOTIFIED DR. PERRY. PATIENT IS CRYING, SITTING ON BED WITH ICE PACKS TO RIGHT SIDE.
--- NOTE | 2021-07-22 09:14 | NUR ---
UPDATE FROM SOLUTION DESIGN AND ANALYSIS MANAGER YVETTE PT HAVING INCREASE ANXIETY, REPORTING PAIN 9/10, PT'S MOTHER IN ROOM VERY ANXIOUS WELL. NOTIFIED.
--- NOTE | 2021-07-22 09:16 | NUR ---
PT ALSO REFUSED AM MEDICATIONS FROM NICHOL BUCIO AT THIS TIME.
--- NOTE | 2021-07-22 10:10 | NUR ---
Attempted to see pt, she is crying loudly and being assisted onto the toilet by her father. Mother, Patricia, is upset. Asked how I can help, they deny need for the nurse and states is in CCU and nurses have notified.
--- NOTE | 2021-07-22 10:45 | NUR ---
IN TO PT ROOM, PATIENT SITTING UP IN BED ALERT AND MOANING, GRUNTING, TAKING SHORT FAST BREATHS, ASSESSMENT COMPLETE, PT V/S STABLE, LUNGS ARE CLEAR AND AIR MOVEMENT NOTED TO ALL LOBES ON ASCULTATION. PT SAID SHE IS VERY CONCERNED ABOUT DISCHARGING TODAY WITHOUT ADEQUATE PAIN MANAGEMENT. BOTH PARENTS IN THE ROOM VERY CONCERNED WANTING THE DOCTOE TO ROUND NOW. UPDATED ON ALL THIS, SAID NO NEW ORDERS AT THIS TIME, DUE TO HER COMPLICATED CASE INCREASEING PAIN MEDICATIONS AT THIS TIME WILL NOT BE HELPFUL.
--- NOTE | 2021-07-22 12:04 | NUR ---
ROUNDED IN PT ROOM AT THIS TIME. NEW ORDERS PLANNED
--- NOTE | 2021-07-22 14:22 | NUR ---
PT SITTING UP ALERT AND ORIENTED. PT REPORTS SHE IS FEELING MUCH BETTER, SHE STILL REPORTS HAVING SMALL AMOUNT AT HER RIGHT BACK.
--- NOTE | 2021-07-22 16:54 | NUR ---
PT REPORTS CONTINUED PAIN AFTER UP TO BATHROOM, RN INTO GIVE SCHEDULED MEDICATIONS AT THIS TIME. PT EDUCATED ON MEDICATIONS AT THIS TIME, PT VERBALIZED HER FRUSTRATION ABOUT NOT HAVING OXYCODONE/PHENERGAN, SHE SCREAMED "I CAN'T LIVE LIKE THIS ANYMORE" "YOU HAVE TO DO SOMETHING!" THIS RN SAID "I WILL CALL AND UPDATE HIM ON YOUR PAIN STATUS. SHE SAID "PLEASE!" CALLED NEW ORDER RECEIVED FOR LIDO PATCH AND MD SAID OK TO GIVE OXYCODONE AT 1730.
--- NOTE | 2021-07-22 18:29 | NUR ---
THIS AM AT 0800 PT BEGAN SCREAMING IN PAIN REPORTING SEVERE PAIN IN HER RIGHT FLANK REGION AND UNDER HER RIGHT BREAST. NOTIFIED, HE DID NOT WANT TO CHANGE MEDS, PATIENT FAMILY WAS IN ROOM AND VERY ANXIOUS WANTING TO ROUND SOON. NOTIFIED THREE TIMES AND UPDATED THAT PATIENTS FATHER VERBALIZED THAT PATIENT BEING IN THIS MUCH PAIN THIS LONG IS UNACCEPTABLE, ROUNDED AND ALLOWED THIS RN TO GIVE PAIN AND NAUSEA MEDICINE 30MIN EARLY. PT VERBALIZED TO THIS RN THAT SHE IS FEARFUL OF BEING DISCHARGE WITHOUT ENOUGH PAIN MEDICATION TO MANAGE PAIN PROPERLY. SHE HAD MOMENTS OF CALM, THOUGH THE PAIN COMPLETLY STOPPED, THEN WHEN TALKING ABOUT MEDICATIONS SHE WOULD BEGIN SCREAMING AND JERKING IN BED.
--- NOTE | 2021-07-22 19:58 | NUR ---
SHIFT REPORT GIVEN BY FORTUNATO MIRZA TO THIS RN. PATIENT HAS NO CURRENT CARE NEEDS. CALL LIGHT IS IN REACH.
--- NOTE | 2021-07-22 22:30 | NUR ---
IN TO ASSIST RN WITH VITALS, ICE WATER PROVIED, DINNER TRAY TAKEN OUT OF RM, TRASH EMPTIED AT THIS TIME, NO FURTHER NEEDS
--- NOTE | 2021-07-22 22:42 | NUR ---
TALKED WITH ABOUT CHANGING PATIENT'S OXYCODONE DOSE FROM 20MG Q6HRS TO 10MG Q3HRS. PATIENT IS ON BOARD FOR DOING THIS AND GAVE A VERBAL ORDER TO MAKE IT 10MG Q3HRS PRN PAIN. PATIENT GIVEN PAIN MEDICATION WITH OTHER EVENING MEDS. PATIENT'S ACCESSED PORT LOCKED WITH HEPARIN. PATIENT WILL WAIT FOR AWHILE FOR ANY OTHER PRN MEDS TO BE GIVEN. PATIENT'S CALL LIGHT IS IN REACH AND SHE HAS NO OTHER CARE NEEDS AT THIS TIME.
--- NOTE | 2021-07-22 23:55 | NUR ---
IN TO ASSIST PT UP THE THE TOILET, SBA/1PA, PT PROVIDED PILLOW FOR BRACING BELLY WITH MOVEMENT, PT BACK TO BED, HEAT AND ICE PACK PROVIEDED, PT IS HAVING INCREASED PAIN, RN INFORMED AND CHECKING ON PT
--- NOTE | 2021-07-23 00:10 | NUR ---
PATIENT GIVEN PO VISTARIL FOR ANXIETY AND IV PHENERGAN FOR NAUSEA PER PROTOCOL IN 20MLS NS. PATIENT JUST RETURNED TO BED FROM THE BATHROOM WITH SAPNA LALA. PATIENT'S LIDOCAINE PATCH REMOVED AND CALL LIGHT IS IN REACH. PATIENT HAD NO OTHER CARE NEEDS AT THIS TIME AND LIGHTS TURNED DOWN AT PATIENT'S REQUEST.
--- NOTE | 2021-07-23 01:02 | NUR ---
PATIENT RESTING QUIETLY IN SEMI-FOWLERS POSITION, EYES CLOSED, RESPIRATIONS ARE REGULAR AND EVEN AND CALL LIGHT IS IN REACH.
--- NOTE | 2021-07-23 02:20 | NUR ---
PATIENT WAS ASLEEP WHEN THIS RN CAME IN THE ROOM AND SAID HER NAME. PATIENT WOKE UP AND SAD SHE WAS HAVING 5/10 MBACK/ AND BREATHING PAIN. 10MG PO OXYCODONE GIVEN. PATIENT HAS NO OTHER CARE NEEDS AND CALL LIGHT IS IN REACH.
--- NOTE | 2021-07-23 03:45 | NUR ---
PATIENT RESTING QUIETLY IN SEMI-FOWLERS POSITION. RESPIRATIONS ARE REGULAR AND EVEN AND PATIENT'S EYES ARE CLOSED. CALL LIGHT IS IN REACH.
--- NOTE | 2021-07-23 06:22 | NUR ---
PATIENT GIVEN 10MG OXYCODONE PO FOR 5/10 RIGHT BACK PAIN AND BREATHING DISCOMFORT. 50MG PO VISTARIL FOR ANXIEY GIVEN WELL 4MG IV ZOFRAN FOR NAUSEA. AM ASSESSMENT COMPLETE. STARTED TO DO VS AND PATIENT STARTED ARCHING HER BACK YELLING, "FUCK, NOT AGAIN, FUCK STOP," OVER AND OVER. MADE SURE IT WAS NOT THIS RN TAKING THE B/P THAT WAS THE ISSUE, AND PATIENT INFORMED ME IT WAS A SPASM IN HER BACK. PATIENT THEN ASKED FOR A WARM PACK, ICE PACK, AND GAS MEDICINE. PATIENT SAID,"MAYBE THIS PAIN IS JUST GAS." ICE AND WARM PACKS GIVEN AND GOING TO ORDER MAADDA. SAPNA LALA ON HER WAY TO DO VS. CALL LIGHT IN REACH.
--- NOTE | 2021-07-23 06:55 | NUR ---
PATIENT GIVEN 30MLS PO MAALOX. PATIENT'S SPASM HAS SETTLED AND CALL LIGHT IS IN REACH.
--- NOTE | 2021-07-23 07:00 | NUR ---
REPORT RECIEVED. PT IN BED WITH EYES CLOSED. CALL LIGHT IN REACH
--- NOTE | 2021-07-23 09:25 | NUR ---
PT CALLED NURSING STATION REPORTING 7/10 RIGHT CHEST PAIN. PT SCREAMING OUT, BREATHING SHALLOW AND GRABBING SIDE. PT REPORTS PAIN COMING AND GOING AND RADIATING/STABBING IN NATURE. 2L NC PLACED D/T OXYGEN SATURATION AT FIRST WAS 76. OTHER CLINICAL SIGNS OF SATURATIONS AT 76 NOT PRESENT. ASSESSED EQUPTMENT. SATURATUIOSN RETURNED TO 89-90%. PT RETURNED TO RA. DR MIJARES NOTIFIED AND CHEST XRAY WAS ORDERED. PT NOW OFF FLOOR TO IMAGING VIA BED. PORT FLUSHED WITH 20MLS NS AND PHENERGAN WAS ADMSITNERED. PORT WAS THEN HEPARIN LOCKED.
--- NOTE | 2021-07-23 10:00 | NUR ---
PT BACK FROM IMAGING. THIS NURSE TO BEDSIDE TO ASSESS PAIN. PT REPORTS MEDICATIONS ARE WORKING NOW AND PAIN IS DECREASED TO 6/10. PT LYING IN BED COMFORTABLY. ICE PACK PROVIDED FOR RIGHT SIDE AND NECK. CALL LIGHT IN REACH. DENIES FURTHER NEEDS.
--- NOTE | 2021-07-23 11:35 | NUR ---
CHECKED ON PATIENT TO SEE IF SHE NEEDED ANYTHING. GOT HER NEW ICE WATER. PATIENT IS RESTING TRYING TO SLEEP.
--- NOTE | 2021-07-23 12:18 | NUR ---
ROUNDED ON PT. PT REPORTING PAIN 5/10 NOW WHICH IS STILL DECREASING FROM THIS MORNING. 10MG OXYCODONE ADMISNTERED NAD 50MG VISTARIL ALONG WITH SCHEDULED TOPAMAX. PT APPEARS COMFORTABLE IN BED, DENIES SOB. CALL LIGHT IN REACH.
--- NOTE | 2021-07-23 13:19 | NUR ---
ROUNDED ON PT. REPORTING 5/10 PAIN. TYLENOL ADMINISTERED AND MIRILAX PER PT REQUEST FOR CONSTIPATION. PT REFUSED SENNO. PT UP TO BATHROOM. REFUSED SHOWER. LINENS CHANGED.
--- NOTE | 2021-07-23 13:30 | NUR ---
Spoke with Tracie, she states she is feeling awful. She feels she is not receiveing enough IV pain meds. Discussed will only order the amount they feel she needs. She complains of spasms in her back near her lung. She states pain is controlled now. Encouraged her to speak with hospitalist when he sees her.
--- NOTE | 2021-07-23 15:32 | NUR ---
PUMP ALARMING, INFUSION AND FLUSH COMPLETE. IV ASSESSED, WNL, FLUSHED AND SALINE LOCKED PER PROTOCOL. ALCOHOL CAP APPLIED. PT DENIES ADDITIONAL REQUESTS OR COMPLAINTS. CALL LIGHT WITHIN REACH.
--- NOTE | 2021-07-23 16:00 | NUR ---
ROUNDED ON PT. PAIN REPORTED AT 5/10. PRN PAIN MEDICAIOTNS ADMSINTERED FOR NAUSEA AND PAIN. CALL [facility] IN REACH.
--- NOTE | 2021-07-23 17:00 | NUR ---
ROUNDED ON PT. REPORTS PAIN 4/10. LOWEST FOR THE DAY. MORE PRNS ADMISNTERED TO KEEP PAIN UNDER CONTROL. PT AGREEABLE AND DENEIS FURTHER NEEDS.
--- NOTE | 2021-07-23 18:12 | NUR ---
ROUNDED ON PT. PLAN TO AMBULATED HALLS AND SHOWER NOW. AXMINSTER RUG SETTER IN ROOM ASSISTING.
--- NOTE | 2021-07-23 19:14 | NUR ---
pt out of shower as per SAPNA Lynne
--- NOTE | 2021-07-23 20:15 | NUR ---
IN TO GET VITALS WITH RN, FRESH ICE WATER REFILLED, NO FURTHER NEEDS AT THIS TIME
--- NOTE | 2021-07-23 20:35 | NUR ---
medicated per abd and lng pain with oxycodone 15mg po
--- NOTE | 2021-07-23 20:43 | NUR ---
on room air, coop withassessment. L port, sluggish to flush, blood flow return present. L upper amr sl patent. c/o feeling nauseated, medicated with xofran 4mg IV. site intact. tender L leg, traceedema. lungs dim at bases, c/o pain/tenderness. was medicated. tolerating fluids well
--- NOTE | 2021-07-23 23:30 | NUR ---
ASSISTED PT WITH WALK, ONE LAP AROUND THE HALLWAYS, RN IN TO PROVIDE MEDS, ICE PACK AND ICE WATER PROVIDED, NO FURTHER NEEDS AT THIS TIME
--- NOTE | 2021-07-24 00:01 | NUR ---
pt ambulated hallways up and down, tolerated well, c/o R lung side pain, medicated with oxycodone 10mg po, vistaril 25 for anxiety and phenergan 25mg IV per c/o feeling nauseated, voiding dark yellow urine, tolerating fluids well, repositions self in bed.
--- NOTE | 2021-07-24 00:06 | NUR ---
rell tellez and madeline earer, ' ihad a bm earlier, dont need it'
--- NOTE | 2021-07-24 01:20 | NUR ---
resting, snoring softly, on room air, no ditress, call light and fluids at bedside
--- NOTE | 2021-07-24 03:35 | NUR ---
reszting, no distress, on room air, eyes closed, call light and fluids at hands reach.
--- NOTE | 2021-07-24 06:05 | NUR ---
up to br, voided QS, tolerating fluids, c/o feeling nauseated and cramping R lung side and pain ful 7/10 medicated with phenergan 25mg IV, tylenol 500mg po and flexeril 10mg po. repositions self in bed. R side crackles exp and dim at baes, on room air, coop with blood draw.
--- NOTE | 2021-07-24 06:15 | NUR ---
On room air, VSS, continues to c/o R lung cramping and painful. lungs dim at bases R with exp crackles t/o, L clear. Walked earlier on shift up and down hallways tolerated well. this am getting up to br was more painful and increaed resp rate noed, sats wnkl on return. Edema and pale skin R arm and L leg, edema trace. EILEEN sl patnt. L port patent. blood draw. received Phenergan x2, zofran x1 per c/o feeling nauseated, effective. Medicated with Tylenol X1, oxycodone 15mg x1 and 10mg x1, effective. Flexeril x1 per R sided cramping, Vistaril 25mg po per anxiety. all effective. awake watching tv this am, . R arm restricted extremity due to DVT.. turns and repositions self in bed. independent. coop with assessment
--- NOTE | 2021-07-24 07:19 | NUR ---
REPORT RECEIVED. PT IN BED. AWAKENS SHORTLY BEFORE GOING BACK TO SLEEP. CALL LIGHT IN REACH.
--- NOTE | 2021-07-24 10:30 | NUR ---
IN FOR ASSESSMENT. PT OUT OF BED WALKING FORM BATHROOM. REPORTS PAIN 04/23. PRN OXYCODONE 10MG ADMISNTERED. ASSESSMENT COMPLETED AND SCHEDULED MEDS GIVEN. PT REPORTS FEELING BETTER TODAY. CRACKLES HEARD FROM MID LUNG TO BASE ON RIGHT SIDE. LEFT SIDE CLEAR. HEART SOUNDS REGULAR. PT PLANS ON SHOWERING AND AMBULATE TODAY. DENIES FURTHER NEEDS. CALL LIGHT IN REACH.
--- NOTE | 2021-07-24 12:30 | NUR ---
ROUNDED ON PT. PT IS SITTING UP IN BED. PLAN FOR PAIN MEDS AFTER WALK IN ELIZONDO. EATING LUNCH. ABX STARTED. PORT WITH GOOD BLOOD RETURN. LEFT UPPER ARM IV NOT LEAKING. FLSUING WELL. CALL LIGHT IN REACH.
--- NOTE | 2021-07-24 13:21 | NUR ---
PT OUT AMBULATING HALLS. REPORTS PAIN AND NAUSEA. PRN OXYCODONE AND PHENERGAN ADMISNTERED. CALL LIGHT IN REACH. DENIES FURTHER NEEDS.
--- NOTE | 2021-07-24 18:00 | NUR ---
ROUNDED ON PT. REPORTS PAIN IS 7/10 AND HAVINGSOME NAUSEA. TORIDOL AND ZOFRAN ADMISNTERED WITH SCHEDULED MEDS. PT SITTING UP IN BED. DENEIS FURTHER NEEDS.
--- NOTE | 2021-07-24 19:14 | NUR ---
THIS MORNING SHE WALKED TWO LAPS AROUND MED SURG.
--- NOTE | 2021-07-24 21:54 | NUR ---
ambulated hallways, c/o r sided pain, medicated with oxycodone, phenergan and tylenol. awake, alert and oriented. lungs clear L, exp crackles mid to low R lung. painful at times. no sob. edema R arm and cool to touch, faint pulses and same L leg trace edema, unable to assess pedal l leg due to being painful. L port a cath patent. received phenergan per c/o feeling nauseated. patent. coop with assessment, room air. voiding dark yellow urine. Decline senokot tabs
--- NOTE | 2021-07-25 01:46 | NUR ---
resting, eyes closed, no distress, eyes closed, fluids and call light at hands reach
--- NOTE | 2021-07-25 03:31 | NUR ---
resating, no distress, eyes closed, call light and fluids at bedside
--- NOTE | 2021-07-25 04:49 | NUR ---
Up to br, voided QS, back to bed, c/o R sided spasms. medicated with zofran per c/o feeling nauseated, vistaril, Oxycodone 10mg po per pain and flexeril per spasma. tolerating fluids well,
--- NOTE | 2021-07-25 05:19 | NUR ---
PT HAS SLEPT ALL THIS SHIFT, WALKED HALLWAYS SEVERAL TIMES AT BEGINING OF SHIFT, TOLERATED WELL. MEDICATED WITH OXYCODONE,TYLENOL,FLEXERIL, VISTARIL PER C/O R LUNG SIDE SPASMS WITH GOOD PAIN RELIEF. WAS MEDICATED WITH PHENERGAN AND ZOFRAN PER C/O FEELING NAUSEATED, NO EMESIS THIS SHIFT, DECLINES SENOKOT TABS. ON ROOM AIR, LUNGS LEFT SIDE CLEAR, RIGHT SIDE WITH EXP CRACKLES, TOLERATING DIET AND LIQUIDS. INDEPENDENT IN ROOM, HAS L PORTACAT PATENT. ALERT AND ORIENTED, NO C/O ADVERSE REACTION TO ABX. LOOKING FORWARD TO GOING HOME
--- NOTE | 2021-07-25 06:20 | NUR ---
c/o feeling nauseated, medicated with phenergan 25mg iv
--- NOTE | 2021-07-25 07:53 | NUR ---
this rn received report from ty sin. per report this rn to allow pt to rest due to other rn getting pt comfortable
--- NOTE | 2021-07-25 09:30 | NUR ---
THIS RN IN PTS ROOM TO PROVIDE PT WITH HER MORNING MEDS. PT STATES THAT SHE WANTS TO HOLD HER BOWEL MEDS. THIS RN ANTICIPATED PTS PAIN AND BROUGHT PTS 10MG OF OXY IN FOR HER. PT STATES THAT SHE DOES NOT HAVE ANY NASUEA THIS AM.
[2021-07-25] MEDS ORDERED: LEVOFLOXACIN750 MG PO (10:11)
[2021-07-25] MEDS ORDERED: ENOXAPARIN100 MG/1 M SUB-Q (10:12)
[2021-07-25] MEDS ORDERED: OXYCODONE HCL10 MG PO (10:13)
[2021-07-25] MEDS ORDERED: HYDROXYZINE PAM25 MG PO (10:14)
--- NOTE | 2021-07-25 11:45 | NUR ---
THIS RN DEACCESSED PTS PORT. PT TOLERATED WELL AND NEEDLE CAME OUT WITHOUT A PROBLEM. PRIOR TO REMOVING THIS RN FLUSHED WITH 10ML OF NS WITH GREAT BLOOD RETURN AND THEN HEP LOCKED THE SITE. THIS RN PLACED A BANDAID OVER SITE DUE TO SLIGHT BLEEDING AT SITE
== END 2021-07-25 12:00 | disposition home or self-care (01) | DRG 175 ==
LOC: ED 17:22 → MS 17:23
PROVIDERS: ADMIT Internal Medicine; ATTEND Internal Medicine
DX: I26.99 Other pulmonary embolism without acute cor pulmonale (principal); J13 Pneumonia due to Streptococcus pneumoniae; G90.522 Complex regional pain syndrome I of left lower limb; Z20.822 Contact with and (suspected) exposure to COVID-19; F32.9 Major depressive disorder, single episode, unspecified; T45.516A Underdosing of anticoagulants, initial encounter; K21.9 Gastro-esophageal reflux disease without esophagitis; F41.9 Anxiety disorder, unspecified; G89.4 Chronic pain syndrome; Z86.718 Personal history of other venous thrombosis and embolism; Z95.828 Presence of other vascular implants and grafts; Z90.89 Acquired absence of other organs; Z98.890 Other specified postprocedural states; Z88.5 Allergy status to narcotic agent; Z88.8 Allergy status to other drugs, medicaments and biological substances; Z90.49 Acquired absence of other specified parts of digestive tract; Z79.01 Long term (current) use of anticoagulants; Z79.51 Long term (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; Z79.899 Other long term (current) drug therapy
CPT/HCPCS: 71046; 71260; 80048; 80053; 83735; 84703; 85025; 85610; 85730; 87070; 87205; 93005; 93010; 96372; 96374; 96375; 96376; 99285-25; A9270; G0378; J0696; J1644; J1650; J1885; J2405; J2550; J7121; Q0177; Q9967; U0003

== ENCOUNTER 2022-02-08 08:55 | Day surgery (SDC) | payer MEDICARE, OTHER ==
[~2022-02-08] VITALS: Ht 165.1 cm; Wt 98.6 kg
--- NOTE | ~2022-02-08 | OR ---
[facility] [address] [place], [place] [address] Draft DATE OF OPERATION: 02/08/2022 SURGEON: Kamlesh Spence MD PREOPERATIVE DIAGNOSIS: Interstitial cystitis. POSTOPERATIVE DIAGNOSIS: Interstitial cystitis. NAME OF PROCEDURE: Diagnostic cystoscopy with hydrodistention. ANESTHESIA: General. ESTIMATED BLOOD LOSS: Minimal. COMPLICATIONS: None. SPECIMENS: None. DRAINS: None. INDICATIONS FOR PROCEDURE: Brody is a very pleasant 31-year-old female with a long and well documented history of interstitial cystitis. She has undergone multiple hydrodistentions in the past with fairly good results in her pain symptoms. Her most recent hydrodistention was approximately six months ago. She denies any new symptoms, but does report today that she feels now that she is a bit overdue for her next distention. She has not experienced any recent urinary tract infections. FINDINGS: 1. On cystoscopy, there was no evidence of any suspicious masses, lesions, or stones. Bilateral ureteral orifices are in their normal anatomic location and effluxing clear urine. She has a transverse strictured appearance of her bladder on the posterior wall. PATIENT NAME: BRODY LINCOLN OPERATIVE REPORT DATE OF : [birth year] REPORT #: [id number] PHYSICIAN: KAMLESH SPENCE MD PCP: MARCELINO PERRY MD REPORT IS CONFIDENTIAL AND NOT TO BE RELEASED WITHOUT AUTHORIZATION [facility] [address] [facility] [place] [address] Draft This is quite stable and has been present for a few years now. It appears to be consistent with a previous bladder contracture. 2. The patient's bladder was filled with approximately 500 mL of fluid and remained distended for 10 minutes. After her bladder was drained, repeat cystoscopy revealed diffuse bladder wall petechiae throughout, along with very mild bleeding from the bladder wall. Otherwise, the procedure was performed without any significant difficulty. DESCRIPTION OF PROCEDURE: After informed consent was obtained, the patient was taken back to the operating room. She was transferred from the [facility] to the operating room table, where general anesthesia was induced. She was placed in the dorsal lithotomy position and her genitalia prepped and draped in a standard sterile fashion. Using a 30-degree lens on a 22.5-Maltese introducer, a rigid cystoscope was inserted through the urethra into her bladder under direct visualization. Panendoscopic views of the bladder were then obtained including the lateral street, floor, dome, and trigone areas. Please see above findings. I then began to fill the patient's bladder to maximum capacity. As per usual, the patient is unable to keep any volume greater than 500 mL without spontaneous leakage around the cystoscope. I therefore maintained adequate flow via gravity into the patient's bladder for a total of 10 minutes. The patient's bladder was drained for a total capacity of 500 mL at the end of the procedure. Repeat cystoscopy revealed diffuse petechia present throughout the bladder wall. However, thankfully, none of them were bleeding significantly. The patient's bladder was emptied all the way using a cystoscope and the cystoscope was then removed. A Belladonna and Opium suppository were inserted into the patient's rectum at the end of procedure. The procedure was then terminated. The patient tolerated the procedure well without any complication. She will now be transferred to the postanesthesia care unit in stable condition. DISPOSITION: I discussed the details of today's procedure with the patient and her mother and answered all their questions to their satisfaction. She will be sent home today with oxycodone 10 mg one tablet p.o. q.6 hours p.r.n. pain, dispense #30. She was also given Cipro 500 mg p.o. b.i.d. for a total of five days for UTI prophylaxis. She will be scheduled to return to clinic in two months for a postoperative visit and to plan her next hydrodistention. Kamlesh Spence MD PATIENT NAME: BRODY LINCOLN OPERATIVE REPORT DATE OF : [birth year] REPORT #: [id number] PHYSICIAN: KAMLESH SPENCE MD PCP: MARCELINO PERRY MD REPORT IS CONFIDENTIAL AND NOT TO BE RELEASED WITHOUT AUTHORIZATION [facility] [address] [place] [id number] Draft JASWANT/RICHIE /[id number] Copies: ~ PATIENT NAME: BRODY LINCOLN OPERATIVE REPORT DATE OF : [birth year] REPORT #: [id number] PHYSICIAN: KAMLESH SPENCE MD PCP: MARCELINO PERRY MD REPORT IS CONFIDENTIAL AND NOT TO BE RELEASED WITHOUT AUTHORIZATION
[~2022-02-08 08:55] MED LIST changes: +ENOXAPARIN100 MG/1 M SUB-Q; +HYDROXYZINE PAM25 MG PO; +LEVOFLOXACIN750 MG PO
--- NOTE | 2022-02-08 09:22 | NUR ---
PT HAS DRG NEURO STIMULATOR ON 'SURGERY' MODE- CELL PHONE WITH PT THAT CONTROLS STIMULATOR.
--- NOTE | 2022-02-08 12:49 | NUR ---
02/08/22 1249 Darlin Mtz 1151 PT ARRIVED IN PACU C/O URGE TO VOID. PLACED ON BEDPAN. VOIDED SCANT AMOUNT OF URINE. 1200 UP TO BSC. UNABLE TO VOID. 1205 BACK IN BED. 1208 C/O 10/10 BLADDER PAIN. FENTANYL 50MCG GIVEN IVP. 1216 UP TO BSC. PAIN DOWN TO 8/10. FENTANYL 50MCG GIVEN IVP. 1220 BACK IN BED WITH WARM BLANKET TO ABD FOR COMFORT. 1224 C/O BLADDER PAIN 8/10. FENTANYL 50MCG GIVEN IVP. 1228 UP TO BSC. UNABLE TO VOID. CRYING OUT IN PAIN WHILE TRYING TO VOID. FENTANYL 50MCG GIVEN IVP. 1240 BACK IN BED. TO DS. REPORT GIVEN TO RN. PT WANTS TO TAKE ORAL PAIN MEDICATION. WATER AND CRACKERS GIVEN.
--- NOTE | 2022-02-08 14:57 | NUR ---
FEELS MUCH BETTER READY TO GO HOME. HAS VOIDED SMALL AMTS DARK YELLOW URINE. WANTS TO GO HOME.
--- NOTE | 2022-02-08 15:10 | NUR ---
WANTS TO GO HOME STATES FEELS MUCH BETTER.
== END 2022-02-08 15:20 | disposition home or self-care (01) ==
LOC: DS 08:55 → OPS 08:55
PROVIDERS: ATTEND Urology
PROC: 0T7B8ZZ Dilation of Bladder, Via Natural or Artificial Opening Endoscopic (ICD-10-PCS; principal; 2022-02-08 09:00)
DX: N30.10 Interstitial cystitis (chronic) without hematuria (principal); R73.03 Prediabetes; Z86.711 Personal history of pulmonary embolism; Z79.82 Long term (current) use of aspirin; Z86.16 Personal history of COVID-19
CPT/HCPCS: J0690; J1100; J1170; J1885; J2001; J2405; J2704; J3010; J7121

== ENCOUNTER 2022-02-17 16:34 | Emergency (ER) | payer MEDICARE, OTHER ==
[~2022-02-17] VITALS: Ht 165.1 cm; Wt 98.7 kg
--- OUTSIDE RECORDS SUMMARY | 2022-02-17 16:36 | XMS ---
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 - Has Care Guidelines CARE PROVIDERS [facility] Internal Medicine Current PHONE: [phone] Aron Hannah Anesthesiology: Pain Medicine 07/18/2018-Current PHONE: [...] ( 05/21/2019 ) Care History Medical/Surgical 01/05/2021 [facility] On going care for cyclic vomiting syndrome. 12/31/2020 [facility] Patient has established care at [facility] for consideration of spinal cord stimulator. 12/01/2020 [facility] Follow up visit with Dr. Vazquez on 12/04/2020 [place] VISIT COUNT (12 MO.) 6 [facility] H. TOTAL 6 NOTE: Visits indicate total known visits. ED/UCC VISIT TRACKING (12 MO.) 02/17/2022 16:[address] [facility] [facility] [place] TYPE: Emergency COMPLAINT: - ABDOMINAL PAIN 09/22/2021 15:[address] [facility] 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 [place] TYPE: Emergency COMPLAINT: - SHORT OF BREATH,CHEST PAIN 06/19/2021 12:[address] [facility] [facility] [place] TYPE: Emergency COMPLAINT: - VOMITING,ABD PAIN DIAGNOSES: - Allergy status to other drugs, medicaments and biological substances - Complex regional pain syndrome I of left lower limb - Other specified abnormal findings of blood chemistry - Allergy status to narcotic agent - Other terminal computer operator (current) drug therapy - Epigastric pain 05/16/2021 16:29 [facility] [place] TYPE: Emergency COMPLAINT: - VOMITING DIAGNOSES: - Other terminal computer operator (current) drug therapy - Complex regional pain syndrome I of left lower limb - Allergy status to narcotic agent - Right upper quadrant pain - Diarrhea, unspecified - Allergy status to other drugs, medicaments and biological substances 03/05/2021 13:49 [facility] [place] TYPE: Emergency COMPLAINT: - ABD PAIN, VOMITING DIAGNOSES: - Other care home (current) drug therapy - Nausea with vomiting, unspecified - Unspecified abdominal pain - Allergy status to other drugs, medicaments and biological substances - Allergy status to narcotic agent INPATIENT VISIT TRACKING (12 MO.) 07/20/2021 15:00 [facility] [place] TYPE: Medical Surgical COMPLAINT: - RECURRENT PE DIAGNOSES: - Chronic pain syndrome - Presence of other vascular implants and grafts - Other care home (current) drug therapy - Pneumonia due to Streptococcus pneumoniae - Complex regional pain syndrome I of left lower limb - Presence of other vascular implants and grafts - Complex regional pain syndrome I of left lower limb - exterminator termite (current) use of anticoagulants - jail (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 - Underdosing of anticoagulants, initial encounter - Anxiety disorder, unspecified - Other pulmonary embolism without acute cor pulmonale - Anxiety disorder, unspecified - Other specified postprocedural states - Gastro-esophageal reflux disease without esophagitis - Underdosing of anticoagulants, initial encounter - Other care home (current) drug therapy - Acquired absence of other organs - Allergy status to other drugs, medicaments and biological substances - Allergy status to other drugs, medicaments and biological substances - Personal history of other venous thrombosis and embolism - Major depressive disorder, single episode, unspecified - Allergy status to narcotic agent - Personal history of other venous thrombosis and embolism - jail (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 - Acquired absence of other specified parts of digestive tract - Acquired absence of other specified parts of digestive tract - Pneumonia due to Streptococcus pneumoniae - Allergy status to narcotic agent - Other specified postprocedural states - exterminator termite (current) use of anticoagulants - Chronic pain syndrome - Major depressive disorder, single episode, unspecified - Acquired absence of other organs - Gastro-esophageal reflux disease without esophagitis [email or web address]
[2022-02-17] MEDS ORDERED: IMIPRAMINE HCL10 MG PO (19:31)
[2022-02-17] MEDS ORDERED: CIPROFLOXACIN500 MG PO (19:31)
== END 2022-02-18 00:47 | disposition home or self-care (01) ==
LOC: ED 16:34
DX: I27.82 Chronic pulmonary embolism (principal); R11.15 Cyclical vomiting syndrome unrelated to migraine; Z86.718 Personal history of other venous thrombosis and embolism; Z88.5 Allergy status to narcotic agent; Z88.8 Allergy status to other drugs, medicaments and biological substances; Z79.899 Other long term (current) drug therapy; Z79.891 Long term (current) use of opiate analgesic
CPT/HCPCS: 36415; 71260; 80053; 81001; 83690; 84703; 85025; 85379; 99284-25; J2405; J2550; J7030; Q9967

== ENCOUNTER 2022-03-16 11:39 | Inpatient (IN) | payer MEDICARE, OTHER ==
[~2022-03-16] VITALS: Ht 165.1 cm; Wt 98.7 kg
[~2022-03-16 11:39] MED LIST changes: +CIPROFLOXACIN500 MG PO; +IMIPRAMINE HCL10 MG PO
--- OUTSIDE RECORDS SUMMARY | 2022-03-16 11:42 | XMS ---
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 No recent Security Events currently on file CRITERIA MET - PDMP - Group Notification - [facility] - Has Care Guidelines - [facility] - 2 Visits in 30 Days [facility] Current PHONE: [phone] Aron Hannah Anesthesiology: Pain Medicine 07/18/2018-Current PHONE: Unknown Guidelines Source: [facility] Guidelines Date: 02/18/2022 Care Recommendation: PATIENT HAS HISTORY COMPLEX REEGIONAL PAIN SYNDROME WELL CYCLICAL ABDOMINAL PAIN/NAUSEA/VOMITING.\T\nbsp;UNDER TREATMENT WITH ARON HANNAH MD PHD PAIN MANAGMENT [facility].\T\nbsp; FOLLOW THIS REGIMEN WHEN PRESENTING TO ED FOR RESOLUTION OF SYMPTOMS: *HYDRATION IV *HYDROMORPHONE 1MG IV * KETOROLAC 30 MG IV *PROMETHAZINE 25MG IV Additional care guidelines exist for the following facilities: [facility] ( 05/21/2019 ) Care History Medical/Surgical 01/05/2021 [facility] On going care for cyclic vomiting syndrome. 12/31/2020 [facility] Patient has established care at [facility] for consideration of spinal cord stimulator. 12/01/2020 [facility] Follow up visit with Dr. Vazquez on 12/04/2020 [place] VISIT COUNT (12 MO.) 6 [facility] H. TOTAL 6 NOTE: Visits indicate total known visits. ED/UCC VISIT TRACKING (12 MO.) 03/16/2022 11:39 [facility] [place] TYPE: Emergency COMPLAINT: - COLD SYMPTOMS, COUGH, FEVER 02/17/2022 16:34 [facility] [place] TYPE: Emergency COMPLAINT: - ABDOMINAL PAIN DIAGNOSES: - Allergy status to other drugs, medicaments and biological substances - [facility] (current) use of opiate analgesic - Other halfway (current) drug therapy - Allergy status to narcotic agent - Nausea with vomiting, unspecified - Chronic pulmonary embolism - Cyclical vomiting syndrome unrelated to migraine - Personal history of other venous thrombosis and embolism 09/22/2021 15:23 [facility] [place] TYPE: Emergency COMPLAINT: - SOB DIAGNOSES: - Allergy status to other drugs, medicaments and biological substances - 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 - Shortness of breath - Other pulmonary embolism without acute cor pulmonale - Other halfway (current) drug therapy - Allergy status to narcotic agent 07/19/2021 17:22 [facility] [place] TYPE: Emergency [...] - Other halfway (current) drug therapy - Epigastric pain 05/16/2021 16:29 [facility] [place] TYPE: Emergency COMPLAINT: - VOMITING DIAGNOSES: - Other halfway (current) drug therapy - Complex regional pain syndrome I of left lower limb - Allergy status to narcotic agent - Right upper quadrant pain - Diarrhea, unspecified - Allergy status to other drugs, medicaments and biological substances INPATIENT VISIT TRACKING (12 MO.) 07/20/2021 15:[address] 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 - Underdosing of anticoagulants, initial encounter - Anxiety disorder, unspecified - Other pulmonary embolism without acute cor pulmonale - Anxiety disorder, unspecified - Other specified postprocedural states - Gastro-esophageal reflux disease without esophagitis - Underdosing of anticoagulants, initial encounter - Other terminal gauger supervisor (current) drug therapy - Acquired absence of other organs - Allergy status to other drugs, medicaments and biological substances - Allergy status to other drugs, medicaments and biological substances - Personal history of other venous thrombosis and embolism - Major depressive disorder, single episode, unspecified - Allergy status to narcotic agent - Personal history of other venous thrombosis and embolism - [facility]PC (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 - Acquired absence of other specified parts of digestive tract - Acquired absence of other specified parts of digestive tract - Pneumonia due to Streptococcus pneumoniae - Allergy status to narcotic agent - Other specified postprocedural states - [facility]PC (current) use of anticoagulants - Chronic pain syndrome - Major depressive disorder, single episode, unspecified - Acquired absence of other organs - Gastro-esophageal reflux disease without esophagitis - Contact with and (suspected) exposure to COVID-19 [email or web address]
--- NOTE | 2022-03-16 18:44 | NUR ---
PATIENT ADMITTED TO ROOM 126 FOR PE AND PNEUMONIA. ADMISSION HISTORY AND ASSESSMENT COMPLETE. PT ON 2 L OF OXYGEN AND SP02 IS 99-100%. IVF STARTED AT 125 ML/HR. IV ROCEPHIN AND IV ZITHROMAX GIVEN WELL. PT HAS COUGH AND STATES THIS HAS BEEN GOING ON FOR A COUPLE OF DAYS.
[2022-03-16] MEDS ORDERED: ENOXAPARIN120 MG/0.8 SUB-Q (18:54)
--- NOTE | 2022-03-16 19:08 | NUR ---
Medications reconciled using pharmacy records and patient interview. Family will bring in buprenorphine patch and imipramine tablet
--- NOTE | 2022-03-16 19:38 | NUR ---
REPORT RECEIVED FROM ANNIKA RN, WILL CONTINUE PLAN OF CARE.
--- NOTE | 2022-03-16 20:45 | NUR ---
PT USED CALL LIGHT, PT AWAKE AND ALERT LAYING IN BED AT THIS TIME, IV ABX COMPLETED, PT SALINE LOCKED, MAINTENANCE IVF STILL INFUSING. PT ON 2L O2 NC, SPO2 95-97%. PT STATED SHE NEEDED TO HAVE A BM AND VOID. PT ABLE TO STAND UP WITHOUT ASSISTANCE AND AMBULATE TO THE BATHROOM, HR NOTED TO INC TO THE 100'S AND LABORED BREATHING NOTED WITH ACTIVITY, PT DENIED LIGHTHEADEDNESS WHEN ASKED. PT ABLE TO AMBULATE BACK INTO THE BED AFTER HAVING A BM AND UNMEASURED VOID. PT REPORTS LEFT FOOT PAIN AT THIS TIME WHICH SHE STATES IS CHRONIC, PT ALSO REQUESTED MIRALAX. PRN MIRALAX AND 10MG OXYCODONE ADMINISTERED WITH SCHEDULED MEDICATIONS (SEE MAR). PROTONIX DOSE HELD PT HAD RECEIVED PROTONIX AT 1820, IMIPRAMINE NOT GIVEN IT IS THE PT'S OWN MEDICATION AND HAS NOT YET BEEN BROUGHT BY FAMILY/FRIEND. VITALS TAKEN WELL AND ASSESSMENT COMPLETED (SEE CHART). PT ALERT AND ORIENTED X4, HEART RYTHM REGULAR, LUNGS CLEAR IN UPPER LOBES BILATERALLY, CLEAR IN THE RIGHT LOWER LOBE AND CRACKLES HEARD IN THE LEFT LOWER LOBE, BOWEL TONES ACTIVE, ABDOMEN SOFT. RADIAL AND PEDAL PULSES STRONG. PT UP TO THE BATHROOM A SECOND TIME TO VOID WHICH WAS UNMEASURED IT MISSED THE HAT. HAT REPOSITIONED. PT NOW RESTING IN BED AND REPORTS NO FURTHER NEEDS AT THIS TIME. IVF INFUSING, PT ON 2L O2 NC, CALL LIGHT IN REACH, WILL CONTINUE PLAN OF CARE.
--- NOTE | 2022-03-16 22:10 | NUR ---
PT SITTING UP IN BED ALERT AND ORIENTED WATCHING TV. IVF INFUSING ORDERED PT STILL ON 2L O2 NC. SP2 100%. PT FINISHED WITH HER DINNER PLATE AT THIS TIME AND ATE 90%. PT REPORTS NO FURTHER NEEDS AT THIS TIME WHEN ASKED, WILL CONTINUE PLAN OF CARE.
--- NOTE | 2022-03-16 23:55 | NUR ---
PT LAYING IN BED AWAKE AND ALERT AT THIS TIME ON 2L O2 NC, IVF INFUSING ORDERED INTO PORT. PT STATED SHE NEEDED TO VOID, PT ABLE TO GET UP, WALK TO THE BATHROOM, VOID, AND GET BACK INTO BED. PT NOTED TO BECOME SHORT OF BREATH DURING ACTIVITY, HR INCREASED TO THE 100'S. PT DENIED LIGHTHEADEDNESS WHEN ASKED. VITALS TAKEN AFTERWARDS AND ASSESSMENT COMPLETED (SEE CHART). PORT SITE C/D/I, FLUSHES EASILY AND RETURNS BLOOD. PT REPORTS THAT SHE WAS HAVING BODY ACHES AND LEFT FOOT PAIN 6/10 AND NAUSEA, PRN OXYCODONE AND ZOFRAN ADMINISTERED (SEE MAR). PT REPORTS NO FURTHER NEEDS AFTERWARDS AND IS NOW RESTING IN BED. CALL LIGHT IN REACH, WILL CONTINUE PLAN OF CARE.
--- NOTE | 2022-03-17 01:02 | NUR ---
PT HIT CALL LIGHT, COMPLAINING OF NAUSEA, SPOKE WITH PRIMARY RN, THIS RN ADMINISTERED PROMETHAZINE PER MAR, THEN ASSISTED PT TO RESTROOM TO VOID, BACK IN BED, PT PLACED IN POSITION OF COMFORT, WARM BLANKET APPLIED TO BACK PER PT REQUEST, CALL LIGHT WITHIN REACH, WATER REFILLED, NO FURTHER NEEDS AT THIS TIME, PRIMARY RN UPDATED ON PT CARE PROVIDED
--- NOTE | 2022-03-17 02:10 | NUR ---
PT LAYING IN BED SLEEPING AT THIS TIME. PT AWOKE BRIEFLY AND REPORTED NO NEEDS WHEN ASKED, IVF INFUSING ORDERED, PT ON 2L O2 NC. CALL LIGHT IN REACH. WILL CONTINUE PLAN OF CARE.
--- NOTE | 2022-03-17 05:45 | NUR ---
PT RESTING IN BED AT THIS TIME SLEEPING AND AWOKE EASILY. SCHEDULED LABS DRAWN FROM IV. PT UP TO THE BATHROOM TO VOID AFTERWARDS. HR INCREASED TO THE 100'S PT BECAME SOB WITH ACTIVITY. PT ABLE TO VOID 175ML OF URINE AND GET BACK INTO THE BED WITH MINIMAL ASSISTANCE. AFTERWARDS PT REPORTED NAUSEA AND BODY ACHES 6/10 ON THE PAIN SCALE. PT REQUESTED PRN ZOFRAN AND TYLENOL, WHICH WERE ADMINISTERED (SEE MAR). PT NOW RESTING IN BED AND REPORTS NO FURTHER NEEDS AT THIS TIME. IVF INFUSING ORDERED, PT ON 2L O2 NC, SPO2 99%, CALL LIGHT IN REACH, WILL CONTINUE PLAN OF CARE.
--- NOTE | 2022-03-17 07:45 | NUR ---
PATIENT SHIFT REPORT RECIEVED FROM RESIDENTIAL CAREGIVER RN. PATIENT RESTING IN BED. PER REPORT PATIENT IS FEELING A LITTLE BETTER THIS AM. PATIENT HAS A PORT IN HER LEFT CHEST THAT IS ACCESSED. PATIENT ON 2L NC AND TOLERATING WELL. WILL CONTINUE TO CLOSELY MONITOR.
--- NOTE | 2022-03-17 08:30 | NUR ---
Spoke with Tracie. She has returned with PE's and pneumonia. States she has been well and not been admitted in quite some time. Pt. cont. to live at home in her parents basement. Denies need for DME, does use a nebulizer from time to time. Plans on dc to home when she is cleared medically. Denies needs.
--- NOTE | 2022-03-17 08:50 | NUR ---
PATIENT AWAKE IN BED, VITALS AND I&OS CHARTED. TELE 6 ON PATIENT. FRESH ICE WATER PROVIDED.
--- NOTE | 2022-03-17 09:25 | NUR ---
THIS RN IN TO SEE PATIENT. PATIENTS ASSESSMENT COMPLETED. PATIENT BREATH SOUNDS ARE CLEAR AND DIMINISHED IN BASES. PATIENT RR 20. PATIENT ON 2L WITH REST. HARSH COUGH NOTED. PATIENT DOES HAVE SOB WITH ACTIVITY AND SPO2 DECREASED WITH AMBULATION TO 87%. WILL INCREASE OXYGEN TO 4L WITH ACTIVITY AND MONITOR HOW PATIENT TOLERATES. PATIENTS BOWEL TONES ACTIVE. NO PRN MEDICATIONS NEEDED AT THIS TIME. PATIENT HAS SOME PAIN IN RIGHT FLANK/SIDE, PATIENT STATES SHE HAS AN IMPLANT IN THAT AREA. PATIENTS LEFT UPPER ARM IV FLUSHED WITH NO ISSUES. PORT INFUSING NS AND ABX STARTED. PATIENT VERY PLEASANT AND ASKS APPROPRIATE QUESTIONS FOR SITUATION. WILL CONTINUE TO CLOSELY MONITOR.
--- NOTE | 2022-03-17 09:50 | NUR ---
THIS RN ASSIST PATIENT UP TO THE BATHROOM. PATIENT IS A STAND-BY ASSIST FOR CORD MANAGEMENT. PATIENT STATED SHE MAY NEED SOEMTHIGN FOR NAUSEA, BUT DOSNT WANT IT YET AND WANTS TO WAIT A FEW MINUTES AND SEE HOW SHE DOES. THIS RN WILL CHECK BACK WITH PATIENT. PATIENT WILL TRANSFER TO THE MEDICAL UNIT ROOM 124. WILL CONTINUE TO CLOSELY MONITOR.
--- NOTE | 2022-03-17 10:24 | NUR ---
REPORT RECEIVED FROM FORTUNATO MONTOYA. AWAITING PTS ARRIVAL TO MED/SURG.
--- NOTE | 2022-03-17 10:25 | NUR ---
PATIENT REQUESTING SOMETHING FOR NAUSEA. PRN PHENERGAN GIVEN. PATIENT TOLERATED WELL. NO OTHER NEEDS AT THIS TIME.
--- NOTE | 2022-03-17 10:50 | NUR ---
REPORT GIVEN TO DION BUCIO. PATIENT UPDATED ON PLAN OF CARE. THIS RN WILL MOVE PATIENT OVER TO [facility] ROOM 124. PATIENT HAS ABX GOING CURRENTLY. ALL QUESTIONS ANSWERED WILL CONTINUE TO CLOSELY MONITOR.
--- NOTE | 2022-03-17 10:59 | NUR ---
PT ARRIVED FROM CCU BY BED. PT REPORTS 6/10 PAIN IN LEFT FOOT/LEG. PT DENIES NEED FOR PAIN MEDICATION AT THIS TIME STATING SHE IS GOING TO TAKE A NAP "AND THEN WE'LL SEE." PT REPORTS NAUSEA CONTINUES. PT STATES SHE NORMALLY TAKES 25MG OF IV PHENGRAN AND DOESN'T FEEL LIKE THE DOES SHE WAS RECENTLY GIVEN "IS CUTTING IT LIKE IT NORMALLY DOES." MESSAGE SENT TO DR. VILLARREAL REQUESTING DOSE INCREASE. PT REPORTS 6/10 CHEST PAIN "WITH COUGH" AND INTERMITTALY "FOR ABOUT 30 MINTUES AT TIME." PT REPORTS THIS CHEST PAIN OCCURS AT HOME WELL"WITH THE PE'S." PORT ASSESSED, WNL, BRISK BLOOD RETURN NOTED. IV ABX AND FLUIDS INFUSING. 18 GAUGE IV TO LEFT UPPER ARM SLUGHISH TO FLUSH. PT REPORTS IV FEELS "TENDER" IV NO LONGER NEEDED. DC'D PER PROTOCOL. GAUZE AND COBAN APPLIED. PT ALERT AND ORIENTED TO ALL. HEART TONES REGULAR. NORMAL SINUS RYTHEM NOTED ON MONTITOR. LUNG SOUNDS CLEAR. OXGYEN SATRUATION 100% ON 2L O2 BY NC. ROOM AIR TRIAL ATTEMPTED. PT DROPS TO 92% ON ROOM AIR. PT LEFT ON 1L O2 BY NC. GONZALES CONTINUES. PT ADVISED TO CALL WHEN SHE NEEDS TO GET UP SO OXYGEN CAN BE INCREASED. OCCATIONAL DRY COUGH NOTED. NO ADDITIONAL REQUESTS OR COMPLAINTS AT THIS TIME. CALL LIGHT WITHIN REACH. BED RAILS UP. LEFT FOOT REMAINS VERY SENSITIVE TO TOUCH. PULSES NOT CHECKED PER PT REQUEST RELATE TO SENSITIVITY.
--- NOTE | 2022-03-17 11:00 | NUR ---
PATIENT TRANSFERED TO THE MEDICAL UNIT ROOM 124 WITH THIS RN AND DION RN AT THE BEDSIDE. THIS RN CHECKED FOR BLOOD RETURN IN PORT PRIOR TO TRANSFER AND IT HAS RETURN. NO FURTHER QUESTIONS AT THIS TIME.
--- NOTE | 2022-03-17 11:25 | NUR ---
PT CALL LIGHT ON. PT REQUESTS ASSISTANCE UP TO RESTROOM. OXGYEN INCREASED TO 3L O2 BY NC FOR ACTIVITY. STAND BY ASSIST UP TO RESTROOM. PT VOIDS 100ML YELLOW URINE. STAND BY ASSIST BACK TO BED. OXGYEN SATURATION REMAIN ABOVE 94% ON 3L O2 WITH ACTIVITY. PT REPORTS ACTIVITY MAKES HER FEEL "EXHAUSTED." PT DENINES ADDITIONAL REQUESTS OR COMPLAINTS. PT WEANED BACK TO 1L O2 BY [place] WITH OXGYEN SATURATIONS ABOVE 95%. CALL LIGHT WITHIN REACH. BED RAILS UP.
--- NOTE | 2022-03-17 12:23 | NUR ---
THIS RN TO ROOM TO CHECK ON PT. PT RESTING IN BED ON RIGHT SIDE WITH EYES CLOSED. RESPIRATIONS EVEN AND UNLABORED. PT ALLOWED TO REST UNDESTURBED. NO ADDITIONAL NEEDS AT THIS TIME. CALL LIGHT WITHIN REACH. BED RAILS UP.
--- NOTE | 2022-03-17 12:36 | NUR ---
PTS MOTHER TERESITA, TO UNIT FOR UPDATE. TERESITA UPDATED ON PT STATUS AND PLAN OF CARE. TERESITA VERBALIZES UNDERSTANDING OF PLAN OF CARE AND STATES HER QUESTIONS HAVE BEEN ANSWERED. PT CONTINUE RESTING WITH EYES CLOSED. REPSPRIATIONSE EVFEN AND UNALBORED OXGYEN SATURATION 98% ON 1L O2 BY NC. HEAR TRATE IN NSR WITH HR IN THE 60'S. NO ADDITIONAL NEEDS AT THIS TIME. CALL LIGHT WITHIN REACH. BED RAILS UP. PT ALLOWED TO REST UNDESTURBED.
--- NOTE | 2022-03-17 13:40 | NUR ---
PATIENT GIVEN 20MG OXYCODONE FOR 6/10 PAIN, 4MG OF ZOFRAN FOR NAUSEA.
--- NOTE | 2022-03-17 14:21 | NUR ---
PT ALERT, ORIENTED AND SITTING UP IN BED NC O2 IN USE. PT HAS OCCASIONAL COUGH, SAID SHE IS FEELING BETER. PT REQUESTED PRAYERM WILL FOLLOW
--- NOTE | 2022-03-17 14:36 | NUR ---
AFTERNOON ASSESSMENT DUE. PT RESTING IN BED WATCHING TV. PT REPORTS 6/10 GENERALZIED BODY ACHES AND LEFT LEG PAIN. PT REPORTS AT HOME PAIN IS USUALLY AT 5-7. PT REPORTS PAIN IS CONTROLED AT THIS TIME AND DENIES NEED FOR ADDITIONAL PAIN MEDICAITON AT THIS TIME. PT REPORTS CHEST PAIN IS "A LITTLE LESS" NOW AT 5/10 AND "PHYLICIA JUST COMES AND GOES." PT REMAINS ALERT AND ORIENTED. PT VERBALIZES UNDERSTANDING OF PLAN OF CARE AND IS PARTICIPATING IN CARES. PT CONTINUES TO HAVE GONZALES WITH INCREASED OXGYEN NEEDS WHILE MOVING ABOUT THE ROOM, UP TO 3 LITERS. OXGYEN SATURATION 97% ON 1L O2 BY NC WHILE AT REST. LUNG SOUND CLEAR IN UPPER LOBES. CRACKELS NOTED IN BASES BUT ONLY WITH DEEP BREATHING. DRY COUGH CONTINUES. TELEMETRY MONITORING CONTINUES TO SHOW NORMAL SINUS RYTHEM. CPOX REMAINS IN PLACE. PT DENIES CONSTIPATION AT THIS TIME. BOWEL TONES ACTIVE. PT REPORTS NAUSEA IS ONGOING, PRN PHENEGRAN GIVEN. PT CONTINUES RESTING IN BED. BED RAILS UP. CALL LIGHT WITHIN REACH. NO ADDITIONAL REQUESTS OR COMPLAINTS.
--- NOTE | 2022-03-17 15:27 | NUR ---
PT TRANSFERED FROM CCU THIS SHIFT. HERE FOR P.E.'S. PT TOLRATING REGULAR DIET WITH MODERATE APPITITE. PRN NAUSEA MEDICATIONS GIVEN PER PT REQUST. PT UP WITH STAND BY ASSIST IN ROOM AND FOR ACTIVITGY TOELRATED. TELEMETRY MONITORING REMAINS IN PLACE WITH NORMAL SINUS RYTHEM NOTED SO FAR, THROUGHOUT SHIFT. PT WEANED TO 1L O1 BY NC WHILE RESTING AND INCREASED TO 3L O2 BY NC WITH ACTIVITY TO MAINTAIN OXYGEN SATURATIONS ABOVE 94%. LUNG SOUNDS CLEAR IN UPPER LOBES. CRACKELS NOTED IN BASES WITH DEEP BREATHING. GONZALES CONTINUES. PRN PAIN MEDICATION GIVEN FOR LEFT LEG AND GENERALIZED BODY ACHES. BUPINORPHAN PATCH REMAINS IN PLACE. PT VOIDIGN QUANTITY SUFFICIENT. PT USES CALL LIGHT AND MAKES NEEDS KNOWN.
--- NOTE | 2022-03-17 15:35 | NUR ---
THIS RN TO ROOM TO CHECK ON PT CONTINUES TO REPROTS NASUEA AND REPORTS EMESIS. 300ML CLEAR YELLOW FLUID NOTED IN EMESIS BAG. MOUTH WASH PROVIDED FOR PT. PT RPEORTS SHE CONTINUES TO FEEL NAUSEATED. COOL CLOTH PROVIDED. PT DECLIENS ADDITIONAL INTERVETIONS STATING "I JUST WANT TO REST AND NOT EAT FOR A WHILE." NO ADDITIONAL NEEDS. CALL LIGHT WITHIN REACH. BED RAILS UP.
--- NOTE | 2022-03-17 16:37 | NUR ---
MEDICATION DUE. THIS RN TO ROOM TO CHECK ON PT. PT RESTING IN BED WATCHING MOVIES ON TV. PT REPORTS 4/10 PAIN IN HER LEFT LEG/FOOT STATING "MY FOOT IS A LOT BETTER." PT CONTINUES TO REPORTS NAUSEA AT 05/23. MESSAGE SENT TO MD, AWAITING RESPONSE REGARDING ADDITIONAL MEDICATIONS. NO PRN MEDICATION AVALIABLE AT THIS TIME. PT DENIES ADDITIONAL REQUESTS OR COMPLAINTS. CALL LIGHT WITHIN REACH. BED RAILS UP.
--- NOTE | 2022-03-17 17:58 | NUR ---
THIS RN TO ROOM TO CHECK ON PT. PT VISITING WITH HER MOTHER. PT REPORTS PAIN IS WELL CONTROLED AT THIS TIME. PT REPORTS NAUSEA IS UNCHANGED. AWAITING NEW ORDERS FROM DR. PERRY. PT DENIES ADDITIONAL REQUESTS OR COMPLAINTS. CALL LIGHT WITHIN REACH. BED RAILS UP. PTS MOTHER UPDATED ON PLAN OF CARE, VERBALIZES UNDERSTANDING, AND STATES HER QUESTIONS HAVE BEEN ANSWERED.
--- NOTE | 2022-03-17 18:04 | NUR ---
DR PERRY CALLED REGARDING NAUSEA MEDICATIONS AND UPDATE ON PTS STATUS. STATES HE WILL PLACE NEW ORDERS SHORTLY.
--- NOTE | 2022-03-17 18:27 | NUR ---
NEW PHENGRAN ORDERS GIVEN. PHARMACIST, MARCELLA, CONSULTED AND STATES OK TO GIVE PT IV DOSE OF PHENGRAN NOW WITH PREVIOUS PO DOES ADMINISTRATION. NOTED THAT PT DID HAVE EMESIS AFTER PO DOES AND LIKELY DOES NOT HAVE COMPLETE DOES IN SYSTEM. PORT ASSESSED, WNL, BRISK BLOOD RETURN NOTED. MEDICATION GIVEN OVER SLOW 10 MINUTE IV PUSH DILUTED IN 20ML NS. PT UP TO RESTROOM WITH STAND BY ASSIST. OXGYEN INCREASED TO 3L O2 BY NC TO MAINTAIN OXYGEN SATURATIONS ABOVE 94% WITH ACTIVITY. PT WEANED BACK TO 1L O2 BY NC ONCE SHE HAS RETURNED TO BED. PT CONTINUES TO REPORTS PAIN IS WELL CONTROLED. NO ADDITIONAL REQUESTS OR COMPLAINTS. CALL LIGHT WITHIN REACH. BED RAILS UP.
--- NOTE | 2022-03-17 19:35 | NUR ---
SHIFT REPORT RECEIVED FROM DAYSMNFT FORTUNATO ASHLEY AT BEDSIDE. pt AWAKE AND RESTING IN BED, ON 1LNC. RR EVEN AND UNLABORED, NO DISTRESS NOTED. NO NEEDS OR CONCERNS VERBALIZED. CALL LIGHT IN REACH.
--- NOTE | 2022-03-17 19:59 | NUR ---
CALL RECEIVED FROM TELE PHARMACY REGARDING NEW DOSE OF 120MG OF LOVENOX BID. TELEPHARMACIST STATES THIS ORDER IS NOT TYPICAL FOR PTS WEIGHT OR DOESING. DR PERRY CONSULTED AND STATES THIS IS INDEED THE ORDER HE WOULD LIKE AND IS PTS HOME MEDICTION REGIMINE FOR P.E.'S. RETURN CALL PLACED TO TELEPHARMCY WITH MD INSTRUCTIONS TO PROCEED WITH DOES ORDERED, PHARMCIST STATES HE WILL VARIFY ORDER. PTS PRIMARY RN, SANTANA, UPDATED.
--- NOTE | 2022-03-17 21:44 | NUR ---
ASSESSMENT COMPLETE, SCHEDULED MEDS GIVEN (SEE EMAR). pt TITRATED TO 3LNC WHEN AMBULATING FROM BED TO BATHROOM AND BACK TO BED, STEADY ON FEET. pt THEN TITRATED BACK TO BASELINE 1LNC. LUNG SOUNDS CLEAR, NO CRACKLES NOTED AT THIS TIME. WILL MONITOR. pt DENEIS SOB OR CHEST PAIN. BRISK BLOOD RETURN NOTED TO LEFT PORT-A-CATH, FLUIDS INFUSING DIRECTED. CALL LIGHT IN REACH.
--- NOTE | 2022-03-17 23:30 | NUR ---
ASSISTED PT WITH IV POLE AND O2 WITH SBA TO THE TOILET, BACK TO BED, NO FURTHER NEEDS
--- NOTE | 2022-03-18 01:00 | NUR ---
ROUNDING ON pt, pt RESTING QUIETLY IN BED. NC FOUND OFF OF pt's FACE- 93% ON RA. 1LNC BACK ON FOR COMFORT, MID 90'S. HR 86. pt DENEIS NEEDS OR CONCERNS. FLUIDS INFUSING DIRECTED, IV SITE WNL. CALL LIGHT IN REACH.
--- NOTE | 2022-03-18 03:30 | NUR ---
ASSISTED PATIENT TO THE RESTROOM. PATIENT TITRATED TO 3 LITERS O2 DURING AMBULATION. PATIENT ABLE TO VOID. PATIENT ASSISTED BACK TO BED. O2 TITRATED TO 1 LITER. IV FLUIDS RUNNING PER ORDER. NO FURTHER NEEDS NOTED. CALL LIGHT WITHIN REACH.
--- NOTE | 2022-03-18 03:35 | NUR ---
rounded on pt, no acute changes. new bag iv fluids hung and infusing as directed via left port-a-cath. pt denies pain, reports minimal nausea, denies need for medication at this time, will monitor. spo2 mid 90's on 1lnc. hr wnl. pt denies chest pain, no distress at rest. call light in reach.
--- NOTE | 2022-03-18 04:55 | NUR ---
ROUNDED ON pt, pt RESTING QUIETLY IN BED. ON 1LNC, RR EVEN AND UNLABORED. NO DISTRESS NOTED. SPO2 MID TO UPPER 90'S, HR LOW 60'S. NO S/SX OF PAIN NOTED. WILL CONTIUNE TO MONITOR. CALL LIGHT IN REACH.
--- NOTE | 2022-03-18 07:06 | NUR ---
SCHEDULED PO PROTONIX GIVEN, SEE EMAR. NO FURTHER NEEDS, CALL LIGHT IN REACH.
--- NOTE | 2022-03-18 07:20 | NUR ---
REPORT RECEIVED FROM FORTUNATO DAVIDSON. PT RESTING IN BED, REPORTS 6/10 PAIN IN LEFT LEG AND 6/10 NAUSEA. PT REPORTS BOTH PAIN AND NAUSEA ARE WELL CONTROLED AT THIS TIME AND SHE DENIES NEED FOR MEDICATIONS AT THIS TIME STATING "I JUST WANT TO SLEEP A LITTLE MORE." PTS HOME IMEPRAMINE MEDICAITON BROUGHT TO MARCELLA, PHARMACIST FOR VARIFICATION. PTS MOTHER AT BEDSIDE TO VISIT WITH PT. PT DENIES ADDITIONAL REQUESTS OR COMPLAINTS. CALL LIGHT WITHIN REACH. BED RAILS UP.
--- NOTE | 2022-03-18 08:12 | NUR ---
MORNING ASSESSMENT AND MEDICATION DUE. PT RESTING IN BED ON RIGHT SIDE WITH EYES CLOSED. PT AWAKENS TO MOVEMENT IN THE ROOM. PT REPORTS 7/10 BODY ACHES AND 7/10 RIGHT SIDED CHEST PAIN THAT IS WORSE WITH INSPIRATION AND WITH COUGH. PT REQUESTS TYLENOL AT THIS TIME. SEE MAR FOR MEDIATION GIVEN. PORT ASSESSED, WNL. BRISK BLOOD RETURN NOTED. PT REPORTS 7/10 NAUSEA AND REQUESTS PHENEGRAN. PHENEGRAN GIVEN DILUTED IN 20ML NS OVER LOW 8 MINUTE PUSH. IV FLUSHED AND IV ABX STARTED. STAND BY ASSIST UP TO RESTROOM. PT VOIDS AND PEROFORMES SELF OLGA CARE WITHOUT ISSUE. PT INCREASED TO 2L O2 BY NC WITH ACTIVITY AND MAINTAINS OXYGEN SATURATIONS 95-100% ON THESE 2L. PT REPORTS LIGHTHEADEDNESS WITH ACTIVITY. LUNG SOUNDS CLEAR IN ALL LOBES. INCREASED DRY COUGH NOTED WITH DEEP BREATHS. PT BACK TO BED AND OXYGEN SATURATION 98-100% ON 1L O2 BY NC. ROOM AIR TRIAL ATTEMPTED. OCCATIONAL DORPS TO 92% NOTED ON ROOM AIR. PT REMAINS ON 1L O2 BY NC AT THIS TIME, WILL CONSULT MD. LEFT FOOT/LEG REMAINS VERY SENSISTIVE. UNABLE TO ASSESS PULSES IN LEFT FOOT AT THIS TIME. PT DENIES ADDITIONAL REQUESTS OR COMPLAINTS. CALL LIGHT WITHIN REACH. BED RAILS UP.
--- NOTE | 2022-03-18 09:45 | NUR ---
PT IS LAYING IN BED WATCHING TV. I&O AND VS CHARTED. CALL LIGHT WITHIN REACH NO FURTHER TASKS AT THIS TIME
--- NOTE | 2022-03-18 09:51 | NUR ---
THIS RN TO ROOM TO CHECK ON PT. PT RESTING IN BED. PT REPORTS 6/10 "BODY ACHES" AND 5/10 RIGHT CHEST PAIN. PT REPORTS PAIN IS WELL CONTROLED. PT STATES NAUSEA HAS NEARLY RESOLVED NOW 2/10. PT DENIES NEED FOR ADDITIONAL MEDCATIONS. IV ABX COMPLETE. PORT ASSESSED, WNL. BRISK BLOOD RETURN NOTED. LINE FLUSHED AND IV FLUIDS RESTARTED. NO ADDITIONAL REQUESTS OR COMPLAINTS. CALL LIGHT WITHIN REACH. BED RAILS UP.
--- NOTE | 2022-03-18 10:50 | NUR ---
MD CONSULTED REGARDING PTS OXYGENATION STATUS. MD STATES OK TO WEAN PT TO ROOM AIR. PT WEANED TO ROOM AIR AND TOLRATING ROOM AIR WITH OXYGEN SATURATIONS 93-96%. PT RESTING WITH EYES CLOSED DURING INTERVTIONS. RESPIRATIONS EVEN AND UNLABORED. NO ADDITIONAL NEEDS AT THIS TIME. CALL LIGHT WITHIN REACH. BED RAILS UP.
--- NOTE | 2022-03-18 11:40 | NUR ---
THIS RN TO ROOM TO CHECK ON PT. PT RESTING WITH EYES CLOSED. AWAKENS TO MOVEMENT IN THE ROOM. RR = 16 AND OXGYEN SATURATION 96% ON ROOM AIR. PT DENIES FEESING SHORT OF BREATH WHILE RESTING. PT REPORTS 5/10 PAIN IN LEFT LEG AND CHEST WITH COUGHING REMAINS UNCHANGED, DENIES NEED FOR PAIN MEDICAITON. PT REPORTS NAUSEA REMAINS WELL CONTROLLED. NO ADDITIONAL REQUESTS OR COMPLAINTS. CALL LIGHT WITHIN REACH. BED RAILS UP.
--- NOTE | 2022-03-18 12:27 | NUR ---
MEDICATION DUE. THIS RN TO ROOM. PT RESTING WITH EYES CLOSED. PT AWAKENS TO VOICE. PT REPORTS PAIN IS "DECENT" AND DENIES NEED FOR ADDITIONAL MEDICAITONS. PT REPORTS HUNGER. MEDICATION GIVEN. PT UP TO SITTING POSITION IN BED FOR LUNCH. PT DECLINES TIME UP TO CHAIR. PT REMAINS ON ROOM AIR WITH OXGYEN SATRUATIONS 94% AND ABOVE. PT DENIES ADDITIONAL REQUESTS OR COMPLAINTS. CALL LIGHT WITHIN REACH. BED RAILS UP.
--- NOTE | 2022-03-18 14:18 | NUR ---
PT ALERT, ORIENTED AND NOW ON RM O2. PT FEELING BETTER, SLIGHT COUGH. PT FEELING MUCH BETTER. HAD GOOD VISIT, PT REQUESTED PRAYER. WILL FOLLOW
--- NOTE | 2022-03-18 14:40 | NUR ---
AFTERNOON ASSESSMENT AND MEDICATION DUE. PT RESTING IN BED WATCHING TV. PT DECLIENS TIME UP TO CHAIR. STAND BY ASSIST UP TO RESTROOM. PT ABLE TO AMBULATE TO RESTROOM ON ROOM AIR WITH OXGYEN SATURATIONS MAINTAINING ABOVE 94%. PT BACK TO BED AND OXGYEN STATURATION RETURNS TO 97% ON ROOM AIR. PT REPORTS 6/10 "BODY ACHES" PAIN AND 7/10 NAUSEA. PT REQUESTS PHENGRAN. SEE MAR FOR MEDICATION GIVEN. PORT A CATH ASSESSED, PRIOR TO MEDICATION ADMINISTRATION, BRISK BLOOD RETURN NOTED. MEDICATION GIVEN, LINE FLUSHED, AND IV FLUIDS RESUMED. HEART TONES REGULAR. LUNG SOUNDS CLEAR IN UPPER LOBES WITH CRACKELS NOTED IN LOWER LOBES WITH DEEP BREATHING. DRY COUGH INCREASES WITH DEEP BREATHING. PT DENIES ADDITIONAL REQUESTS OR COMPLAINTS. CONTINUES RESTING IN BED. CALL LIGHT WITHIN REACH. BED RAILS UP.
--- NOTE | 2022-03-18 15:25 | NUR ---
THIS RN TO ROOM TO CHECK ON PT. PT RESTING IN BED. PT REPORTS SHE RECENTLY HAD A COUGHING FIT AFTER CONVERSATION WITH CASE MANAGEMENT AND WAS GIVEN MEDICATION ALREADY. PT DENIES ADDITIONAL REQUESTS OR COMPLAINTS. CALL LIGHT WITHIN REACH. BED RAILS UP.
--- NOTE | 2022-03-18 16:30 | NUR ---
Pt feeling a little better, denies needs. Cont. with cough.
--- NOTE | 2022-03-18 16:34 | NUR ---
PT HERE FOR NEW LEFT SIDED P.Es AND PENUMONIA. PT UP INDEPENDANLTY IN ROOM. DECLINES TIME UP TO CHAIR OR AMBUALTION THIS SHFIT. PT TOELRATING REGULAR DIET WITH GOOD APPITITE. PT REPORTS NAUSEA THROUGHOUT SHIFT, REQUESTING IV PHENEGRAN. PT WEANED TO ROOM AIR THIS SHIFT, TOLERATING WITH OXGYEN SATURATIONS ABOVE 93% EVEN WITH ACTIVITY. LUNG SOUNDS CLEAR IN UPPER LOBES, WITH CRACKELS NOTED WITH DEEP BREATHS IN LOWER LOBES. PT REPORTS PAIN IS TOLERABLE SO FAR THIS SHIFT. PORT REMAINS WNL WITH BRISK BLOOD RETURN. PT VOIDING QUANTITY SUFFICIENT. PT USES CALL LIGHT AND MAKES NEEDS KNOWN.
--- NOTE | 2022-03-18 16:50 | NUR ---
THIS RN TO ROOM TO CHECK ON PT. PT VISITING WITH HER MOTHER. PT REPORTS BOTH PAIN AND NAUSEA ARE WELL CONTROLLED AT THIS TIME AND COUGH HAS IMPROVED. EXTENSIVE EDUCATION DONE WITH PT AND PTS MOTHER REGARDING DISEASE PROCESS, ACTIVITY, IMPORTANCE OF MEDICATIONS AND DEEP BREATHING AND AVALIABEL COUGH MEDICAITONS. PT DENIES ADDITIONAL REQUESTS OR COMPLAINTS AT THIS TIME. MEDICATINO GIVEN (SEE MAR). CALL LIGHT WITHIN REACH. BED RAILS UP.
--- NOTE | 2022-03-18 18:47 | NUR ---
THIS RN TO ROOM TO CHECK ON PT. PT REPORTS PAIN AND NAUSEA REMAIN WELL CONTROLED. PT DENIES NEED FOR MEDICATION AT THIS TIME. PT ALSO REPORTS COUGH IS WELL CONTROLED. OXYGEN SATURATION 97% ON ROOM AIR. PT DENIES ADDITIONAL REQUESTS OR COMPLAINTS. CALL LIGHT WITHIN REACH. BED RAILS UP.
--- NOTE | 2022-03-18 19:00 | NUR ---
shift report received from mariluzorkaterin gillespie at bedside. pt awake and resting in bed, on ra. no needs or distress noted, call light in reach.
--- NOTE | 2022-03-18 22:17 | NUR ---
VSS, I&O'S COMPLETE. SCHEDULED MEDS GIVEN ALONG WITH PRN PAIN, NAUSEA, COUGH, AND CONSTIPATION MEDICATION (SEE EMAR). pt AWAKE AND A/OX4, AMBULATES INDEPENDENTLY IN ROOM AND CALLS APPROPRIATELY. LUNG SOUNDS CLEAR, SCANT CRACKLES IN LEFT LOWER LOBE. BRISK BLOOD RETURN TO LEFT PORT-A-CATH, FLUIDS INFUSING DIRECTED. pt DENIED PAIN BEFORE AND DURING PHENERGAN ADMINISTRATION. NO FURTHER NEEDS, CALL LIGHT IN REACH.
--- NOTE | 2022-03-19 00:13 | NUR ---
rounded on pt, pt awake and resting nasima jackson bed. recently returned from bathroom. spo2 92%, hr 57. no needs or concerns. call light in reach.
--- NOTE | 2022-03-19 02:18 | NUR ---
ROUNDED ON pt, pt RESTING QIETLY. AWOKE WHILE SPOT CHECKING pt. SPO2 90-91% ON RA, HR 60. pt REPORTS TOLERABLE 5/10 PAIN, DENIES NEED FOR PAIN AND NAUSEA MEDICATION AT THIS TIME. RR EVEN AND UNLABORED. CALL LIGHT IN REACH AND IV FLUIDS INFUSING VIA PORT-A-CATH WNL. DRESSING C.D.I.
--- NOTE | 2022-03-19 04:51 | NUR ---
pt RESTING IN BED WITH EYES CLOSED, RR EVEN AND UNLABORED. NO DISTRESS NOTED, REMAINS ON RA. CALL LIGHT IN REACH.
--- NOTE | 2022-03-19 08:30 | NUR ---
REPORT RECEIVED FROM NIGHT RN AND PT. CARE RESUMED. PT. IS ALERT AND ORIENTED TO ALL. SHE C/O IRRITATED COUGH NAUSEA AND ADMIN. EDWIN SHEA. LUNGS HAVE CRACKLES IN THE BASES. SHE IS ON ROOM AIR AND O2 SAT IS 94%. LEFT LEG SENSITIVE TO TOUCH, BUT OTHERWISE DENIES PAIN. DISCUSSED PAIN MANAGEMENT, MEDS AND POC. LEFT RESTING WITH CALL LIGHT IN REACH.
--- NOTE | 2022-03-19 09:15 | NUR ---
PT. C/O CONTINUED NAUSEA AND REQUESTS BREATHING TX. ADMIN. PHENERGAN AND RT CALLED. DISCUSSED CHANGING PORT DRESSING WITH GEL BIOPATCH. PATIENT AGREEABLE. LEFT RESTING WITH CALL LIGHT IN REACH.
--- NOTE | 2022-03-19 11:03 | NUR ---
ROUNDING ON PT. SHE IS RESTING IN BED WITH EYES CLOSED. AWAKENS EASILY TO SOUND AND DENIES NEEDS AT THIS TIME.
--- NOTE | 2022-03-19 11:47 | NUR ---
PT IN BR, WILL CHECK BACK
--- NOTE | 2022-03-19 13:40 | NUR ---
PT IS SITTING UP IN BED WATCHING TV. I&O AND VS CHARTED CALL LIGHT WITHIN REACH NO FURTHER TASKS AT THIS TIME
--- NOTE | 2022-03-19 14:29 | NUR ---
ROUNDING ON PT. SHE IS RESTING IN BED AND DENIES NEEDS AT THIS TIME. ON ROOM AIR AND BREATHING IS UNLABORED.
--- NOTE | 2022-03-19 15:56 | NUR ---
ROUNDING ON PT. SHE DENIES NAUSEA OR PAIN EXCEPT WITH COUGHING. LUNGS HAVE CRACKLES IN THE BASES. IVF INFUSING. PT. DENIES FURTHER NEEDS AND LEFT RESTING WITH CALL LIGHT IN REACH.
--- NOTE | 2022-03-19 17:19 | NUR ---
PT. AMBULATED 0.5 LAP AROUND THE UNIT INDEPENDENTLY AND RETURNED TO ROOM DUE TO COUGHING AND NAUSEA. ADMIN PHENERGAN. CENTRAL LINE DRESSING CHANGED. PT. LEFT RESTING WITH CALL LIGHT IN REACH.
--- NOTE | 2022-03-19 18:05 | NUR ---
pt is sitting up in bed, mom visiting at bedside. CAll light within reach no further tasks at this time
--- NOTE | 2022-03-19 19:05 | NUR ---
BEDSIDE HANDOFF REPORT RECEIVED FROM DAY SHIFT RN. PT RESTING IN BED. PT REQUESTING FRESH WATER, PROVIDED BY CHEMICAL ENGINEERING INTERN.
--- NOTE | 2022-03-19 22:00 | NUR ---
PT RESTING IN BED. PT STATES BREATHING IS ABOUT THE SAME, SLIGHTLY BETTER AFTER EVENING NEB, LUNG SOUNDS CLEAR WITH CRACKLES TO LOWER LEFT, ON ROOM AIR, FREQUENT COUGH. PT REPORT OF MILD NAUSEA. PORT SALINE LOCKED. CMS INATCT, WITHOUT EDEMA. PT UP TO BATHROOM, VOIDING WITHOUT DIFFICULTY. PT PROVIDED WITH FRESH ICE WATER. PT DENIES OTHER NEEDS AT THIS TIME.
--- NOTE | 2022-03-20 00:31 | NUR ---
PT REQUESTING PHENERGAN AND COUGH MEDICINE, GIVEN PER EMAR. PT PROVIDED WITH FRESH ICE WATER. PT DENIES OTHER NEEDS AT THIS TIME.
--- NOTE | 2022-03-20 02:30 | NUR ---
PT SLEEPING, LEFT UNDISTURBED.
--- NOTE | 2022-03-20 06:10 | NUR ---
PT RESTING IN BED. PT STATES SHE SLEPT WELL. LUNG SOUNDS CLEAR WITH CRACKLES TO LEFT LOWER SIDE, CONTINUES TO BE ON ROOM AIR. PT DENIES OTHER NEEDS AT THIS TIME.
--- NOTE | 2022-03-20 07:55 | NUR ---
RECD. REPORT FROM NIGHT RN, PT. RESTING IN BED, EYES CLOSED RESPIRATIONS EVEN, ASSUMED ALL CARE
--- NOTE | 2022-03-20 13:57 | NUR ---
PT. AMBULATED IN THE HALLS 4 TIMES SO FAR THIS SHIFT, SHE HAS TO STOP EVERY 20 FT OR SO TO CATCH HER BREATH AND STATES SHE DOES GET A LITTLE DIZZY. 02 SATS WNL, SOME CRACKLES L & R LOWER LOBES. APPETITE IS GOOD, SOME NAUSEA THIS MORNING, DOES NOT NORMALLY EAT BREAKFAST, GAVE PHENERGAN 12.5 MG IV AND THIS WAS EFFECTIVE. DRINKING ADEQUATE LIQUIDS.
--- NOTE | 2022-03-20 17:11 | NUR ---
FAMILY VISITING, PT IS GOING TO SHOWER, OPSITE APPLIED TO PORT SITE AND LEFT ARM MED PATCH. CRACKLES REMAIN IN THE POSTERIOR LEFT LUNG WITH A SMALL EXPIRATORY POP. SHE STILL GETS SOB ON EXERTION.
--- NOTE | 2022-03-20 20:00 | NUR ---
Pt resting in bed- denies pain. Intermittent dry cough without noted distress. Verbalizes needs appropriately. Call light within reach. Will cont to monitor.
--- NOTE | 2022-03-20 21:20 | NUR ---
WASTEWATER TREATMENT PLANT CHEMIST TO ROOM TO OBTAIN VS. PT RESTING IN BED WATCHING TV. VS WNL. PT STATES PAIN 7/10 TO L FOOT. DESCRIBES ACHING IN NATURE. PRN PAIN MEDICATION REQUESTED. PRIMARY RN NOTIFIED. PRN ADMINISTERED SEE EMAR. PT WITH RT AT BEDSIDE. DENIES FURTHER NEEDS FROM THIS WASTEWATER [employer]REATMENT PLANT CHEMIST. CALL LIGHT IN REACH.
--- NOTE | 2022-03-20 23:35 | NUR ---
Alert and oriented x4. Pleasant mood. Compliant w/ medication administration and assessment. Appears comfortable and denies pain/discomfort at this time. Ambulates independently in room. Verbalizes needs appropriately; call light w/in reach. VSS. Will cont to monitor.
--- NOTE | 2022-03-21 02:00 | NUR ---
Pt resting in bed with her eyes closed and appears comfortable. Verbalizes needs appropriately. Call light within reach. Will cont to monitor.
--- NOTE | 2022-03-21 05:44 | NUR ---
Pt resting in bed- PRN medication administered for nausea. Call light within reach. Will cont to monitor.
--- NOTE | 2022-03-21 07:26 | NUR ---
RECD. REPORT FROM NIGHT RN, ASSUMED CARE OF PT., RESTING IN BED, CALLS FOR NEEDS
--- NOTE | 2022-03-21 07:50 | NUR ---
patient is resting in the bed. call light with in reach. no further needs at this time.
--- NOTE | 2022-03-21 08:54 | NUR ---
RESTING IN BED, DENIES NEEDS AT THIS TIME.
--- NOTE | 2022-03-21 10:23 | NUR ---
UP AD ANA M IN ROOM AND HALLWAYS, LUNGS CLEAR ALL ADAMS, NON PRODUCTIVE COUGH CONTINUES. LBM 5-4, GAVE MIRALAX AND GRAPE JUICE PER PT. REQUEST. STATES THAT IS NORMAL FOR HER BOWEL PATTERNS. APPETITE GOOD, ADEQUATE FLUIDS, DENIES PAIN/NAUSEA.
--- NOTE | 2022-03-21 11:43 | NUR ---
C/O NAUSEA, GAVE PHENERGAN 25 MG IV SLOWLY PER PHARMACY PROTOCOL.
[2022-03-21] MEDS ORDERED: CEFPODOXIME PR200 MG PO (13:03)
--- NOTE | 2022-03-21 14:45 | NUR ---
PT. IS DISCHARGED AND RN HAD REVIEWED DC INSTX AND GAVE PAPERWORK, F/U WITH PCP IN 2 WEEKS, LEFT CHEST PORTACATH DEACCESSED WNL WITH HEPARIN FLUSH PER PROTOCOL, TOLERATED WELL. FAMILY IN ROOM AND WILL DRIVE PT. HOME.
== END 2022-03-21 14:45 | disposition home or self-care (01) | DRG 175 ==
LOC: ED 11:39 → MS 17:21 → CCU 17:21 → MS 03-17 11:25
PROVIDERS: ADMIT Internal Medicine; ATTEND Internal Medicine
DX: I26.99 Other pulmonary embolism without acute cor pulmonale (principal); J96.01 Acute respiratory failure with hypoxia; J13 Pneumonia due to Streptococcus pneumoniae; Z20.822 Contact with and (suspected) exposure to COVID-19; G89.4 Chronic pain syndrome; I27.82 Chronic pulmonary embolism; K21.9 Gastro-esophageal reflux disease without esophagitis; F32.A Depression, unspecified; F39 Unspecified mood [affective] disorder; Z86.718 Personal history of other venous thrombosis and embolism; Z90.89 Acquired absence of other organs; Z98.890 Other specified postprocedural states; Z90.49 Acquired absence of other specified parts of digestive tract; Z88.5 Allergy status to narcotic agent; Z88.8 Allergy status to other drugs, medicaments and biological substances; Z79.899 Other long term (current) drug therapy
CPT/HCPCS: 36415; 71045; 71260; 80048; 80053; 83605; 83735; 84703; 85025; 87502; 94640; 94760; 96365; 99285-25; A9270; C9803; J0456; J0696; J1650; J2405; J2550; J7030; J7050; J7121; Q9967; U0003

== ENCOUNTER 2022-06-07 05:30 | Day surgery (SDC) | payer MEDICARE, OTHER ==
[~2022-06-07] VITALS: Ht 165.1 cm; Wt 98.0 kg
[~2022-06-07 05:30] MED LIST changes: +CEFPODOXIME PR200 MG PO; +ENOXAPARIN120 MG/0.8 SUB-Q; +VICTOZA 3-0.6 MG/0.1 SUB-Q
--- NOTE | 2022-06-07 08:24 | NUR ---
PT ALERT, ORIENTED AND HERE FOR REPEAT PROCEDURE THAT SHE ADMITS GIVES RELIEF AND SHE KNOWS WHEN SHE NEEDS IT. GAVE ENCOURAGEMENT, BLESSING AND HAD PRAYER WITH PT. HER MOTHER WILL BE HERE AT ID. WILL FOLLOW NEEDED
--- NOTE | 2022-06-07 08:39 | NUR ---
06/07/22 0839 Darlin Mtz 0815 PT ARRIVED IN PACU NON RESPONSIVE TO NOXIOUS STIMULI WITH OPA IN PLACE. 0826 PT REACTIVE. OPA REMOVED. 0830 C/O URGE TO VOID. PUREWICK CATHETER IN PLACE. 0833 C/O BURNING WHEN TRYING TO VOID. FENTANYL 50MCG GIVEN IVP. 0839 SNORING. REU.
--- NOTE | 2022-06-07 09:30 | NUR ---
0905-PATEINT BACK TO ROOM FROM PACU. PATEINT UP TO RESTROOM WITH 1 RN ASSIST. GAIT STEADY. PATIENT VOIDS A MINIMAL AMOUNT. 0914-PATIENT BACK TO ROOM AND LAYING IN BED. RESP EVEN AND UNLABORED. RATES PAIN A "HARD 8 OUT OF 10". REPORTS SOME NAUSEA. PATIENT IS EATING CRACKERS AND TAKING SIPS OF JUICE AND WATER. WOUND LIKE ORAL PAIN MEDICATION. 0919-PAIN MEDICATION GIVEN PER EMAR. NO NAUSEA MEDICATION GIVEN AT THIS TIME. PROVIDED PATIENT WITH WARM BLANKET. CALL LIGHT WITHIN REACH.
--- NOTE | 2022-06-07 10:18 | NUR ---
PATIENT RESTING WITH EYES CLOSED, NO OTHER NEEDS A THIS TIME. REPORTS PAIN MEDICATION EFFECTIVE.
--- NOTE | 2022-06-07 12:16 | NUR ---
1115: VS CHECKED. PATIENT STATES PAIN MUCH IMPROVED AFTER PO PAIN MEDS. DENIES NEED FOR ANY ADDITIONAL PAIN MEDS AT THIS TIME. GIVEN RAJNI CRACKERS PER REQUEST. PATIENT ASSISTED OOB AND WALKED TO BATHROOM. VOID APPROXIMATELY 50 ML. GAIT STEADY BACK TO ROOM. PORTACATH FLUSHED WITH NS AND THEN FLUSHED WITH HEPARIN. PORTACATH DEACCESSED WNL. BANDAID PLACED OVER PORT ACCESS SITE. PATIENT GETTING DRESSED.
--- NOTE | 2022-06-14 07:26 | OR ---
[facility] [address], [place] [address] Signed DATE OF OPERATION: 06/07/2022 SURGEON: Kamlesh Spence MD PREOPERATIVE DIAGNOSIS: Interstitial cystitis. POSTOPERATIVE DIAGNOSIS: Interstitial cystitis. PROCEDURE: Diagnostic cystoscopy with hydrodistention. ANESTHESIA: General. ESTIMATED BLOOD LOSS: Minimal. COMPLICATIONS: None. SPECIMENS: None. DRAINS: None. INDICATIONS FOR PROCEDURE: Brody is a very pleasant 32-year-old female, who is very well known to me. She has a history of hemorrhagic interstitial cystitis, mostly induced by her prior use of ketamine for her neuropathic lower extremity pain. She undergoes routine hydrodistentions around every 3-4 months for management of her bladder discomfort. She presents today to undergo another routine hydrodistention. OPERATIVE FINDINGS: 1. On cystoscopy, there was no evidence of any suspicious masses, lesions, or stones. Bilateral ureteral orifices are in their normal anatomic location. There is diffuse superficial erythema of the bladder mucosa, consistent with chronic irritation in this area. Electronically Signed By: KAMLESH SPENCE MD 06/07/22 1403 Electronically Signed By: KAMLESH SPENCE MD 06/14/22 0726 PATIENT NAME: BRODY LINCOLN OPERATIVE REPORT DATE OF : 89 REPORT #: [id number] PHYSICIAN: KAMLESH SPENCE MD PCP: MARCELINO PERRY MD REPORT IS CONFIDENTIAL AND NOT TO BE RELEASED WITHOUT AUTHORIZATION [facility] [address], [place] [address] Signed 2. The patient's bladder was filled with a total of 425 mL for a little over 8 minutes during her hydrodistention. The patient's bladder is minimally compliant beyond 425 mL and does leak irrigation fluid beyond this point. After the patient's bladder was then drained, there was active bleeding from the mucosa; however, I did not appreciate any Hunner ulcers. DESCRIPTION OF PROCEDURE: After informed consent was obtained, the patient was taken back to the operating room. She was transferred from the [facility] to the operating room table, where general anesthesia was induced. She was placed in the dorsal lithotomy position and her genitalia prepped and draped in a standard sterile fashion. Using a 32 degree lens on a 22.5-[place] introducer, a rigid cystoscope was inserted through the urethra into her bladder under direct visualization. Panendoscopic views of bladder then obtained. Please see above findings. I first emptied the patient's bladder of any remaining urine, and then filled the patient's bladder to a total of over 425 mL for a total of 8 minutes. Please see the above findings. I did have to maintain continuous flow towards the end of the distention due to the patient's lack of bladder compliance and active drainage of fluid from the bladder during distention. At the end of the procedure, the patient's bladder drained a total of 425 mL of fluid. Repeat cystoscopy revealed active hemorrhage from the bladder wall; however, this was mild. I then drained the bladder again and removed the cystoscope. The procedure was then terminated. The patient tolerated the procedure well without any complication. A second B and O suppository was placed postoperatively. She will now be transferred to the Postanesthesia Care Unit in stable condition. DISPOSITION: I left a voicemail for the patient per her request after surgery. I discussed the details of the procedure today and answered all of her questions. She will be sent home with oxycodone 10 mg two tablets p.o. q.8 hours p.r.n. pain, dispense #60, along with Cipro 500 mg p.o. b.i.d. for a total of 5 days. She has been placed back on the schedule to see me for another history and physical in preparation for her next hydrodistention in late August. Her actual next date of surgery is September 20, 2022. Kamlesh Spence MD AR/MODL /[id number] Electronically Signed By: KAMLESH SPENCE MD 06/07/22 1403 Electronically Signed By: KAMLESH SPENCE MD 06/14/22 0726 PATIENT NAME: BRODY LINCOLN OPERATIVE REPORT DATE OF : [birth year] REPORT #: [id number] PHYSICIAN: KAMLESH SPENCE MD PCP: MARCELINO PERRY MD REPORT IS CONFIDENTIAL AND NOT TO BE RELEASED WITHOUT AUTHORIZATION [facility] [address] [facility] [place], [place] [address] Signed Copies: ~ Electronically Signed By: KAMLESH SPENCE MD 06/07/22 1403 Electronically Signed By: KAMLESH SPENCE MD 06/14/22 0726 PATIENT NAME: BRODY LINCOLN OPERATIVE REPORT DATE OF : 89 REPORT #: [id number] PHYSICIAN: KAMLESH SPENCE MD PCP: MARCELINO PERRY MD REPORT IS CONFIDENTIAL AND NOT TO BE RELEASED WITHOUT AUTHORIZATION
== END 2022-06-07 11:20 | disposition home or self-care (01) ==
LOC: DS 05:30
PROVIDERS: ATTEND Urology
PROC: 0T7B8ZZ Dilation of Bladder, Via Natural or Artificial Opening Endoscopic (ICD-10-PCS; principal; 2022-06-07 06:45)
DX: N30.10 Interstitial cystitis (chronic) without hematuria (principal); R73.03 Prediabetes; Z86.16 Personal history of COVID-19; Z88.5 Allergy status to narcotic agent; Z88.8 Allergy status to other drugs, medicaments and biological substances; Z86.711 Personal history of pulmonary embolism
CPT/HCPCS: J0690; J1100; J1170; J1885; J2250; J2405; J2704; J2765; J3010; J7121

== ENCOUNTER 2022-06-13 13:23 | Emergency (ER) | payer MEDICARE, OTHER ==
[~2022-06-13] VITALS: Ht 165.1 cm; Wt 98.3 kg
--- OUTSIDE RECORDS SUMMARY | 2022-06-13 13:26 | XMS ---
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 Original Events No recent Security Events currently on file CRITERIA MET - Group Notification - PDMP - [facility] - Has Care Guidelines CARE PROVIDERS MARCELINO PERRY Internal Medicine Current PHONE: Unknown Aron Hannah Anesthesiology: Pain Medicine 07/18/2018-Current PHONE: Unknown Guidelines Source: [facility] Guidelines Date: 02/18/2022 Care Recommendation: PATIENT HAS HISTORY COMPLEX REEGIONAL PAIN SYNDROME WELL CYCLICAL ABDOMINAL PAIN/NAUSEA/VOMITING.\T\nbsp;UNDER TREATMENT WITH ARON HANNAH MD PHD PAIN MANAGMENT [facility].\T\nbsp; FOLLOW THIS REGIMEN WHEN PRESENTING TO ED FOR RESOLUTION OF SYMPTOMS: *HYDRATION IV *HYDROMORPHONE 1MG IV * KETOROLAC 30 MG IV *PROMETHAZINE 25MG IV Additional care guidelines exist for the following facilities: [facility] ( 05/21/2019 ) Care History Medical/Surgical 03/18/2022 [facility] Patient admitted to CCU as Inpatient. 03/16/2022 [facility] - Patient is currently established with [facility]. If patient is seen in the ED during business hours. Please contact CHWs at [facility]. Care Recommendation: If this patient has had 5 or more Emergency Department visits in the last 12 months.\T\nbsp;Patient will require education on the scope and purpose of the ED as an acute care provider not a Primary Care Provider and should not be utilized for chronic conditions.\T\nbsp; These are guidelines and the provider should exercise clinical judgment when providing care. 01/05/2021 [facility] On going care for cyclic vomiting syndrome. E.D. VISIT COUNT (12 MO.) 7 [facility] TOTAL 7 NOTE: Visits indicate total known visits. ED/UCC VISIT TRACKING (12 MO.) 06/13/2022 13:24 [facility] [place] TYPE: Emergency COMPLAINT: - ABDOMINAL PAIN 05/09/2022 17:02 [facility] [place] TYPE: Emergency COMPLAINT: - VOMITING, ABD PAIN DIAGNOSES: - Cyclical vomiting syndrome unrelated to migraine - Allergy status to narcotic agent - Allergy status to other drugs, medicaments and biological substances - Other mcc (current) drug therapy 03/16/2022 11:39 [facility] [place] TYPE: Emergency COMPLAINT: - COLD SYMPTOMS, COUGH, FEVER 02/17/2022 16:34 [facility] [place] TYPE: Emergency COMPLAINT: - ABDOMINAL PAIN DIAGNOSES: - Allergy status to other drugs, medicaments and biological substances - 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 [place] TYPE: Emergency COMPLAINT: - SOB DIAGNOSES: - Allergy status to other drugs, medicaments and biological substances - continuous churn buttermaker (current) use of opiate analgesic - Shortness of breath - Other pulmonary embolism without acute cor pulmonale - Other [facility] (current) drug therapy - Allergy status to narcotic agent 07/19/2021 17:[address] [facility] [place] TYPE: Emergency COMPLAINT: - SHORT OF BREATH,CHEST PAIN 06/19/2021 12:25 [facility] TYPE: Emergency COMPLAINT: - VOMITING,ABD PAIN DIAGNOSES: - Allergy status to other drugs, medicaments and biological substances - Complex regional pain syndrome I of left lower limb - Other specified abnormal findings of blood chemistry - Allergy status to narcotic agent - Other [facility] (current) drug therapy - Epigastric pain INPATIENT VISIT TRACKING (12 MO.) 03/16/2022 17:[address] [facility] [place] TYPE: Medical Surgical COMPLAINT: - ACUTE PE, PNEUMONIA DIAGNOSES: - Pneumonia due to Streptococcus pneumoniae - Other specified postprocedural states - Personal history of other venous thrombosis and embolism - Chronic pulmonary embolism - Acute respiratory failure with hypoxia - Chronic pulmonary embolism - Gastro-esophageal reflux disease without esophagitis - Personal history of other venous thrombosis and embolism - Gastro-esophageal reflux disease without esophagitis - Acquired absence of other organs - Acquired absence of other specified parts of digestive tract - Chronic pain syndrome - Allergy status to other drugs, medicaments and biological substances - Acquired absence of other organs - Acquired absence of other specified parts of digestive tract - Other [facility] (current) drug therapy - Contact with and (suspected) exposure to COVID-19 - Unspecified mood [affective] disorder - Allergy status to narcotic agent - Depression, unspecified - Unspecified mood [affective] disorder - Other specified postprocedural states - Depression, unspecified - Other pulmonary embolism without acute cor pulmonale - Acute respiratory failure with hypoxia - Contact with and (suspected) exposure to COVID-19 - Chronic pain syndrome - Allergy status to other drugs, medicaments and biological substances - Pneumonia due to Streptococcus pneumoniae - Other [facility] (current) drug therapy - Allergy status to narcotic agent 07/20/2021 15:00 [facility] TYPE: Medical Surgical COMPLAINT: - RECURRENT PE DIAGNOSES: - Chronic pain syndrome - Presence of other vascular implants and grafts - 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 - Pneumonia due to Streptococcus pneumoniae - Complex regional pain syndrome I of left lower limb - Presence of other vascular implants and grafts - Complex regional pain syndrome I of left lower limb - correction (current) use of anticoagulants - continuous churn buttermaker (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 - Underdosing of anticoagulants, initial encounter - Anxiety disorder, unspecified - Other pulmonary embolism without acute cor pulmonale - Anxiety disorder, unspecified - Other specified postprocedural states - Gastro-esophageal reflux disease without esophagitis - Underdosing of anticoagulants, initial encounter - Other [facility] (current) drug therapy - Acquired absence of other organs - Allergy status to other drugs, medicaments and biological substances - Allergy status to other drugs, medicaments and biological substances - Personal history of other venous thrombosis and embolism - Major depressive disorder, single episode, unspecified - Allergy status to narcotic agent - Personal history of other venous thrombosis and embolism - continuous churn buttermaker (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 - Acquired absence of other specified parts of digestive tract - Acquired absence of other specified parts of digestive tract - Pneumonia due to Streptococcus pneumoniae - Allergy status to narcotic agent - Other specified postprocedural states - correction (current) use of anticoagulants - Chronic pain syndrome - Major depressive disorder, single episode, unspecified - Acquired absence of other organs - Gastro-esophageal reflux disease without esophagitis - Contact with and (suspected) exposure to COVID-19 [email or web address]
== END 2022-06-13 18:25 | disposition home or self-care (01) ==
LOC: ED 13:23
DX: R10.10 Upper abdominal pain, unspecified (principal); Z79.899 Other long term (current) drug therapy; Z88.5 Allergy status to narcotic agent; Z88.8 Allergy status to other drugs, medicaments and biological substances; Z86.711 Personal history of pulmonary embolism; Z79.01 Long term (current) use of anticoagulants
CPT/HCPCS: 36415; 80053; 83690; 84703; 85025; J2550; J7030

== ENCOUNTER 2022-09-20 06:55 | Day surgery (SDC) | payer MEDICARE, OTHER ==
[~2022-09-20] VITALS: Ht 165.1 cm; Wt 95.5 kg
[~2022-09-20 06:55] MED LIST changes: +OZEMPIC1 MG/0.71 SQ
--- NOTE | 2022-09-20 10:53 | NUR ---
PT HAS HAD THIS PROCEDURE NUMEROUS TIMES BEFORE. GAVE COMFORT, ENCOURAGEMENT AND BLESSING. WILL FOLLOW
--- NOTE | 2022-09-20 11:37 | NUR ---
PT RETURNED FROM PACU. PT UP TO RESTROOM WITH STAND BY ASSIST. VOIDS ANOTHER MODERATE AMOUNT, PINK URINE, UNMEASURED VOID. PT AMBULATES TO ROOM, STEADY ON FEET, ALERT AND ORIENTED TO ALL. PT REPORTS 8/10 URINARY PAIN IN BLADDER THAT IS "SHARP." DILAUDID GIVEN. PT TOLERATES CRACKERS, DENIES NAUSEA, AND REPORTS SHE WOULD LIKE TO TAKE A PAIN PILL WELL, PERCOCET GIVEN (SEE MAR). OXGYEN SATURATIONS 100% ON ROOM AIR. NO DRAINAGE NOTED FROM URETHRA AT THIS TIME. PT REPORTS NO BLOOD WITH WIPING. PT REQUESTS AZO WELL, FOR PAIN CONTROL, SEE MAR FOR MEDICAITON GIVEN. NO ADDITIONAL NEEDS AT THIS TIME. BED RAILS UP. CALL LIGHT WITHIN REACH.
--- NOTE | 2022-09-20 11:50 | NUR ---
09/20/22 1150 Dar[address] M[address] 1058 PT ARRIVED IN PACU SLEEPY. 1105 PT AWAKE AND C/O URGE TO VOID. BEDPAN PLACED. 1110 PT VOIDED. 1117 BEDPAN BACK UNDER PT PER HER REQUEST. FENTANYL 50MCG GIVEN IVP FOR BLADDER PAIN. UNABLE TO RATE AT THIS TIME. 1120 TORADOL 30MG GIVEN IVP FOR BLADDER PAIN. 1122 VOIDED QS ON BEDPAN. C/O BLADDER PAIN. FENTANYL 50MCG GIVEN IVP. 1130 TAKING SIPS OF WATER. 1135 TO DS. AMBULATED TO BATHROOM WITH ONE PERSON ASSIST. VOIDED QS. BACK AT BEDSIDE. REPORT GIVEN TO RN.
--- NOTE | 2022-09-20 11:59 | NUR ---
PT CONTINUES TO REPORT 7/10 PAIN IN URINARY SYSTEM/BLADDER. HEAT PACK PROVIDED. PT REPORTS "ITS ALWAYS BETTER ONCE THE PAIN PILLS KICK IN. PT DENIES ADDITIONAL NEEDS. CALL LIGHT WIHTIN REACH. BED RAILS UP.
[2022-09-20] MEDS ORDERED: ONDANSETRON ODT8 MG PO (12:12)
[2022-09-20] MEDS ORDERED: CIPRO500 MG PO (12:13)
--- NOTE | 2022-09-20 12:27 | NUR ---
VITALS AND ASSESSMENT DUE. PT RESTING IN BED, APPEARS CALMER AND STATES THE PAIN IS "STARTING TO GET BETTER." PT RATES BLADDER ARELLANO AT 5/10 AT THIS POINT AND DENIES NEED FOR ADDITIONAL ARELLANO MEDCATION. PT DENIES NASUEA. NO DRAINAGE NOTED FROM URETHRA. NO ADDITIONAL NEEDS AT THIS TIME. PTS MOTHER TO BEDSIDE TO VISIT WITH PT. CALL LIGHT WITHIN REACH. BED RAILS UP.
--- NOTE | 2022-09-20 12:58 | NUR ---
PT READY FOR DISCHARGE. PT REPORTS 3/10 BLADDER PAIN THAT IS WELL CONTROLLED. PT UP TO RESTROOM, STEADY ON FEET AND VOIDS AND ADDTIONAL 250ML ORANGE URINE. NO BLOOD NOTED WITH OLGA CARE. PT DRESSES SELF, NO ASSISTANCE NEEDED. PT DENIES NAUSEA AND IS TOLERATING PO FOOD AND FLUIDS. 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 PORT A CATH HEPARIN LOCKED AND DEACCESSED PER PROTOCOL. DISCHARGE INSTRUCTIONS REVIEWED WITH PT. PT VERBALIZES UNDERSTANDING OF INSTRUCTIONS AND STATES HER QUESTIONS HAVE BEEN ANSWERED. PT WHEELED FROM DAY/SURGERY NO ADDITIONAL REQUESTS OR CONCERNS.
--- NOTE | 2022-09-21 13:04 | OR ---
[facility] [address], [place] [address] Signed DATE OF OPERATION: 09/20/2022 SURGEON: Kamlesh Spence MD PREOPERATIVE DIAGNOSIS: Interstitial cystitis. POSTOPERATIVE DIAGNOSIS: Interstitial cystitis. NAMES OF PROCEDURES: Diagnostic cystoscopy with hydrodistention. ANESTHESIA: General. ESTIMATED BLOOD LOSS: Minimal. COMPLICATIONS: None. SPECIMENS: None. DRAINS: None. INDICATIONS FOR PROCEDURE: Brody is a very pleasant 32-year-old female who is well-known to me. She has a history of chronic interstitial cystitis with intermittent flares. They are typically managed with Pyridium and B and O suppositories. She gets every 3 to 4 month cystoscopy with hydrodistention for management of her chronic cystitis symptoms. She presents today to undergo another routine hydrodistention. OPERATIVE FINDINGS: 1. Prior to distention, cystoscopy reveals a fairly normal bladder wall with no evidence of any bladder masses or lesions. Bilateral ureteral orifices are in their normal anatomic location effluxing clear urine. There is a stable horizontal scar running on the posterior wall of her bladder that has been present there now for years. Electronically Signed By: KAMLESH SPENCE MD 09/21/22 1304 PATIENT NAME: BRODY LINCOLN OPERATIVE REPORT DATE OF : 89 REPORT #: [id number] PHYSICIAN: KAMLESH SPENCE MD PCP: MARCELINO PERRY MD REPORT IS CONFIDENTIAL AND NOT TO BE RELEASED WITHOUT AUTHORIZATION [facility] [address], [place] [address] Signed 2. The patient was hydrodistended at maximum volume via gravity for a total of 8 minutes. Her bladder capacity after distention was noted to be 600 mL. 3. Cystoscopy performed post hydrodistention revealed bladder wall petechiae present on the posterior lateral street of the bladder. There was no obvious Hunner lesions present. DESCRIPTION OF PROCEDURE: After informed consent was obtained, the patient was taken back to the operating room. She was transferred from the [facility] to the operating room table, where general anesthesia was induced. She was placed in the dorsal lithotomy position and the genitalia prepped and draped in sterile fashion. Using a 30-degree lens on a 22.5-[place] introducer, rigid cystoscope was inserted through her urethra and into her bladder under direct visualization. Panendoscopic views of the bladder were then obtained. Please see above findings. I then filled the patient's bladder under gravity to full distention for 8 minutes. Due to lack of compliance. The patient does leak irrigation fluid throughout the entire duration of the hydrodistention. After 8 minutes the fluid was drained from the patient's bladder and a total of 600 mL was drained from her bladder. The post distention irrigation fluid was noted to be pink tinged in nature. Once the patient's bladder was completely drained the cystoscope was then removed and the procedure was terminated. The patient tolerated the procedure well without any complication. She will now be transferred to the postanesthesia care unit in stable condition. DISPOSITION: I left a voicemail per the patient's request, describing to her today the details of today's procedure. She will be going home later today with a prescription for oxycodone 10 mg 1-2 tablets p.o. q.8 hours p.r.n. pain for a total of 60 pills prescribed. She was also given a prescription for Zofran 8 mg as well as Cipro 500 mg p.o. b.i.d. for a total of 5 days. She will be scheduled return to clinic in early December in preparation for her next hydrodistention. MD JASWANT Michaels/MODL /[id number] Electronically Signed By: KAMLESH SPENCE MD 09/21/22 1304 PATIENT NAME: BRODY LINCOLN OPERATIVE REPORT DATE OF : [birth year] REPORT #: [id number] PHYSICIAN: KAMLESH SPENCE MD PCP: MARCELINO PERRY MD REPORT IS CONFIDENTIAL AND NOT TO BE RELEASED WITHOUT AUTHORIZATION [address] [place], [place] [address] Signed Copies: ~ Electronically Signed By: KAMLESH SPENCE MD 09/21/22 1304 PATIENT NAME: BRODY LINCOLN OPERATIVE REPORT DATE OF : [birth year] REPORT #: [id number] PHYSICIAN: KAMLESH SPENCE MD PCP: MARCELINO PERRY MD REPORT IS CONFIDENTIAL AND NOT TO BE RELEASED WITHOUT AUTHORIZATION
== END 2022-09-20 13:10 | disposition home or self-care (01) ==
LOC: DS 06:55
PROVIDERS: ATTEND Urology
PROC: 0T7B8ZZ Dilation of Bladder, Via Natural or Artificial Opening Endoscopic (ICD-10-PCS; principal; 2022-09-20 09:50)
DX: N30.10 Interstitial cystitis (chronic) without hematuria (principal)
CPT/HCPCS: J0690; J1170; J1885; J2001; J2250; J2405; J2704; J3010; J7121

== ENCOUNTER 2022-09-29 15:09 | Emergency (ER) | payer MEDICARE, OTHER ==
[~2022-09-29] VITALS: Ht 165.1 cm; Wt 95.5 kg
--- OUTSIDE RECORDS SUMMARY | 2022-09-29 15:12 | XMS ---
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.\T\nbsp; FOLLOW THIS REGIMEN WHEN PRESENTING TO ED FOR RESOLUTION OF SYMPTOMS: *HYDRATION IV *HYDROMORPHONE 1MG IV * KETOROLAC 30 MG IV *PROMETHAZINE 25MG IV Additional care guidelines exist for the following facilities: [facility] ( 05/21/2019 ) Care History Medical/Surgical 03/18/2022 [facility] Patient admitted to CCU as Inpatient. 03/16/2022 [facility] - Patient is currently established with [facility]. If patient is seen in the ED during business hours. Please contact CHWs at [facility]. Care Recommendation: If this patient has had 5 or more Emergency Department visits in the last 12 months.\T\nbsp;Patient will require education on the scope and purpose of the ED as an acute care provider not a Primary Care Provider and should not be utilized for chronic conditions.\T\nbsp; These are guidelines and the provider should exercise clinical judgment when providing care. 01/05/2021 [facility] On going care for cyclic vomiting syndrome. E.D. VISIT COUNT (12 MO.) 5 [facility] TOTAL 5 NOTE: Visits indicate total known visits. 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 - Other prison (current) drug therapy 05/09/2022 17:02 [facility] TYPE: Emergency COMPLAINT: - VOMITING, ABD PAIN DIAGNOSES: - Allergy status to other drugs, medicaments and biological substances - Cyclical vomiting syndrome unrelated to migraine - Other prison (current) drug therapy - Allergy status to narcotic agent 03/16/2022 11:39 [facility] TYPE: Emergency COMPLAINT: - COLD SYMPTOMS, COUGH, FEVER 02/17/2022 16:34 [facility] TYPE: Emergency COMPLAINT: - ABDOMINAL PAIN DIAGNOSES: - Nausea with vomiting, unspecified - Other prison (current) drug therapy - Allergy status to other drugs, medicaments and biological substances - Personal history of other venous thrombosis and embolism - Chronic pulmonary embolism - Allergy status to narcotic agent - alf (current) use of opiate analgesic - Cyclical vomiting syndrome unrelated to migraine INPATIENT VISIT TRACKING (12 MO.) 03/16/2022 17:21 [facility] TYPE: Medical Surgical COMPLAINT: - ACUTE PE, PNEUMONIA DIAGNOSES: - Allergy status to other drugs, medicaments and biological substances - Chronic pain syndrome - Acute respiratory failure with hypoxia - Unspecified mood [affective] disorder - Other terminal operator (current) drug therapy - Acquired absence of other organs - Gastro-esophageal reflux disease without esophagitis - Depression, unspecified - Contact with and (suspected) exposure to COVID-19 - Other terminal operator (current) drug therapy - Gastro-esophageal reflux disease without esophagitis - Acute respiratory failure with hypoxia - Other specified postprocedural states - Unspecified mood [affective] disorder - Chronic pain syndrome - Acquired absence of other specified parts of digestive tract - Chronic pulmonary embolism - Depression, unspecified - Pneumonia due to Streptococcus pneumoniae - Allergy status to other drugs, medicaments and biological substances - Chronic pulmonary embolism - Other specified postprocedural states - Allergy status to narcotic agent - Acquired absence of other specified parts of digestive tract - Personal history of other venous thrombosis and embolism - Other pulmonary embolism without acute cor pulmonale - Pneumonia due to Streptococcus pneumoniae - Contact with and (suspected) exposure to COVID-19 - Acquired absence of other organs - Personal history of other venous thrombosis and embolism - Allergy status to narcotic agent [email or web address]
== END 2022-09-29 19:27 | disposition home or self-care (01) ==
LOC: ED 15:09
DX: R10.9 Unspecified abdominal pain (principal); Z88.5 Allergy status to narcotic agent; Z88.8 Allergy status to other drugs, medicaments and biological substances; Z79.899 Other long term (current) drug therapy
CPT/HCPCS: 36415; 80053; 81001; 83690; 85025; 96374; 96375; 99284-25; J2550; J7030

== ENCOUNTER 2022-10-04 11:47 | Emergency (ER) | payer MEDICARE, OTHER ==
[~2022-10-04] VITALS: Ht 165.1 cm; Wt 95.9 kg
--- OUTSIDE RECORDS SUMMARY | 2022-10-04 11:50 | XMS ---
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 Guidelines Date: 02/18/2022 Care Recommendation: PATIENT HAS HISTORY COMPLEX REEGIONAL PAIN SYNDROME WELL CYCLICAL ABDOMINAL PAIN/NAUSEA/VOMITING.\T\nbsp;UNDER TREATMENT WITH ARON HANNAH MD PHD PA[facility] MANA[facility].\T\nbsp; FOLLOW THIS REGIMEN WHEN PRESENTING TO ED FOR RESOLUTION OF SYMPTOMS: *HYDRATION IV *HYDROMORPHONE 1MG IV * KETOROLAC 30 MG IV *PROMETHAZINE 25MG IV Additional care guidelines exist for the following facilities: [facility] ( 05/21/2019 ) Care History Medical/Surgical 03/18/2022 [facility] Patient admitted to CCU as Inpatient. 03/16/2022 [facility] - Patient is currently established with [facility]. If patient is seen in the ED during business hours. Please contact CHWs at [facility]. Care Recommendation: If this patient has had 5 or more Emergency Department visits in the last 12 months.\T\nbsp;Patient will require education on the scope and purpose of the ED as an acute care provider not a Primary Care Provider and should not be utilized for chronic conditions.\T\nbsp; These are guidelines and the provider should exercise clinical judgment when providing care. 01/05/2021 [facility] On going care for cyclic vomiting syndrome. E.D. VISIT COUNT (12 MO.) 6 [facility] H. TOTAL 6 NOTE: Visits indicate total known visits. 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 [place] TYPE: Emergency COMPLAINT: - VOMITING, ABD PAIN DIAGNOSES: - Cyclical vomiting syndrome unrelated to migraine - Other half-way (current) drug therapy - Allergy status to narcotic agent - Allergy status to other drugs, medicaments and biological substances 03/16/2022 11:[address] [facility] [place] TYPE: Emergency COMPLAINT: - COLD SYMPTOMS, COUGH, FEVER 02/17/2022 16:[address] [facility] [place] TYPE: Emergency COMPLAINT: - ABDOMINAL PAIN DIAGNOSES: - Allergy status to other drugs, medicaments and biological substances - Personal history of other venous thrombosis and embolism - Chronic pulmonary embolism - Allergy status to narcotic agent - long term care phlebotomist (current) use of opiate analgesic - Cyclical vomiting syndrome unrelated to migraine - Nausea with vomiting, unspecified - Other half-way (current) drug therapy INPATIENT VISIT TRACKING (12 MO.) 03/16/2022 17:[address] [facility] [place] TYPE: Medical Surgical COMPLAINT: - ACUTE PE, PNEUMONIA DIAGNOSES: - Contact with and (suspected) exposure to COVID-19 - Other half-way (current) drug therapy - Acute respiratory failure with hypoxia - Gastro-esophageal reflux disease without esophagitis - Unspecified mood [affective] disorder - Other specified postprocedural states - Chronic pain syndrome - Acquired absence of other specified parts of digestive tract - Depression, unspecified - Chronic pulmonary embolism - Pneumonia due to Streptococcus pneumoniae - Allergy status to other drugs, medicaments and biological substances - Other specified postprocedural states - Chronic pulmonary embolism - Allergy status to narcotic agent - Acquired absence of other specified parts of digestive tract - Other pulmonary embolism without acute cor pulmonale - Personal history of other venous thrombosis and embolism - Pneumonia due to Streptococcus pneumoniae - Contact with and (suspected) exposure to COVID-19 - Acquired absence of other organs - Allergy status to narcotic agent - Personal history of other venous thrombosis and embolism - Allergy status to other drugs, medicaments and biological substances - Chronic pain syndrome - Unspecified mood [affective] disorder - Acute respiratory failure with hypoxia - Other half-way (current) drug therapy - Acquired absence of other organs - Depression, unspecified - Gastro-esophageal reflux disease without esophagitis [email or web address]
--- NOTE | 2022-10-05 20:43 | EKG ---
[facility] [address] [place] [address] Signed Normal sinus rhythm Low voltage QRS Borderline ECG When compared with ECG of 15-JAN-2022 09:38, Nonspecific T wave abnormality now evident in Anterior leads Confirmed by Yesy Garcia MD () on 10/05/2022 8:43:31 PM Electronically Signed By: YESY GARCIA MD 10/05/222042 PATIENT NAME: BRODY LINCOLN Electrocardiogram DATE OF : 89 PHYSICIAN: YESY GARCIA MD REPORT #: [id number] REPORT IS CONFIDENTIAL AND NOT TO BE RELEASED WITHOUT AUTHORIZATION
== END 2022-10-04 15:51 | disposition home or self-care (01) ==
LOC: ED 11:47
DX: R07.9 Chest pain, unspecified (principal); Z88.5 Allergy status to narcotic agent; Z88.8 Allergy status to other drugs, medicaments and biological substances; Z86.718 Personal history of other venous thrombosis and embolism; Z86.711 Personal history of pulmonary embolism; Z20.822 Contact with and (suspected) exposure to COVID-19
CPT/HCPCS: 36415; 71045; 80053; 84484; 84703; 85025; 85379; 87502; 93005; 93010; 96374; 96375; 99285-25; C9803; J2405; U0003

== ENCOUNTER 2022-11-11 13:20 | Emergency (ER) | payer MEDICARE, OTHER ==
[~2022-11-11] VITALS: Ht 165.1 cm; Wt 93.6 kg
--- OUTSIDE RECORDS SUMMARY | 2022-11-11 13:23 | XMS ---
PreManage Notification: BRODY LINCOLN Security Director Oracle Database Events No recent Security Events currently on file CRITERIA MET - [facility] - Has Care Guidelines - PDMP - Group Notification CARE PROVIDERS MARCELINO PERRY Internal Medicine 07/18/2018-Current PHONE: Unknown Aron Hannah Anesthesiology: Pain Medicine 07/18/2018-Current PHONE: Unknown Guidelines Source: [facility] Guidelines Date: 02/18/2022 Care Recommendation: PATIENT HAS HISTORY COMPLEX REEGIONAL PAIN SYNDROME WELL CYCLICAL ABDOMINAL PAIN/NAUSEA/VOMITING.\T\nbsp;UNDER TREATMENT WITH ARON HANNAH MD PHD PAIN MANAGMENT [facility].\T\nbsp; FOLLOW THIS REGIMEN WHEN PRESENTING TO ED FOR RESOLUTION OF SYMPTOMS: *HYDRATION IV *HYDROMORPHONE 1MG IV * KETOROLAC 30 MG IV *PROMETHAZINE 25MG IV Additional care guidelines exist for the following facilities: [facility] ( 05/21/2019 ) Care History Medical/Surgical 03/18/2022 [facility] Patient admitted to CCU as Inpatient. 03/16/2022 [facility] - Patient is currently established with [facility]. If patient is seen in the ED during business hours. Please contact CHWs at [facility]. Care Recommendation: If this patient has had 5 or more Emergency Department visits in the last 12 months.\T\nbsp;Patient will require education on the scope and purpose of the ED as an acute care provider not a Primary Care Provider and should not be utilized for chronic conditions.\T\nbsp; These are guidelines and the provider should exercise clinical judgment when providing care. 01/05/2021 [facility] On going care for cyclic vomiting syndrome. E.D. VISIT COUNT (12 MO.) 7 [facility] [place] [facility] H. TOTAL 7 NOTE: Visits indicate total known visits. ED/UCC VISIT TRACKING (12 MO.) 11/11/2022 13:20 [facility] [place] TYPE: Emergency COMPLAINT: - ABD PAIN, VOMITING 10/04/2022 11:48 [facility] [place] TYPE: Emergency COMPLAINT: - ABD PAIN, V/D, DIFFICULTY BREATHING DIAGNOSES: - Allergy status to other drugs, medicaments and biological substances - Allergy status to narcotic agent - Personal history of other venous thrombosis and embolism - Personal history of pulmonary embolism - Chest pain, unspecified - Contact with and (suspected) exposure to COVID-19 09/29/2022 15:10 [facility] [place] TYPE: Emergency COMPLAINT: - ABDOMINAL PAIN DIAGNOSES: - Unspecified abdominal pain - Other extermination inspector (current) drug therapy - Allergy status to other drugs, medicaments and biological substances - Allergy status to narcotic agent 06/13/2022 13:24 [facility] [place] TYPE: Emergency COMPLAINT: - ABDOMINAL PAIN DIAGNOSES: - Upper abdominal pain, unspecified - Allergy status to narcotic agent - alf (current) use of anticoagulants - Other extermination inspector (current) drug therapy - Allergy status to other drugs, medicaments and biological substances - Personal history of pulmonary embolism 05/09/2022 17:02 [facility] [place] TYPE: Emergency COMPLAINT: - VOMITING, ABD PAIN DIAGNOSES: - Cyclical vomiting syndrome unrelated to migraine - Other extermination inspector (current) drug therapy - Allergy status to narcotic agent - Allergy status to other drugs, medicaments and biological substances 03/16/2022 11:39 [facility] [place] TYPE: Emergency COMPLAINT: - COLD SYMPTOMS, COUGH, FEVER 02/17/2022 16:34 [facility] [place] TYPE: Emergency COMPLAINT: - ABDOMINAL PAIN DIAGNOSES: - Allergy status to other drugs, medicaments and biological substances - Personal history of other venous thrombosis and embolism - Chronic pulmonary embolism - Allergy status to narcotic agent - computer terminal operator (current) use of opiate analgesic - Cyclical vomiting syndrome unrelated to migraine - Nausea with vomiting, unspecified - Other jail (current) drug therapy INPATIENT VISIT TRACKING (12 MO.) 03/16/2022 17:[address] [facility] [place] TYPE: Medical Surgical COMPLAINT: - ACUTE PE, PNEUMONIA DIAGNOSES: - Contact with and (suspected) exposure to COVID-19 - Other jail (current) drug therapy - Acute respiratory failure [...] Acute respiratory failure with hypoxia - Other extermination inspector (current) drug therapy - Acquired absence of other organs - Depression, unspecified - Gastro-esophageal reflux disease without esophagitis [email or web address]
== END 2022-11-11 20:26 | disposition other institution, planned readmission (95) ==
LOC: ED 13:20
DX: R10.9 Unspecified abdominal pain (principal); G89.29 Other chronic pain; R11.15 Cyclical vomiting syndrome unrelated to migraine; Z53.21 Procedure and treatment not carried out due to patient leaving prior to being seen by health care provider; Z86.718 Personal history of other venous thrombosis and embolism; Z88.5 Allergy status to narcotic agent; Z79.899 Other long term (current) drug therapy; Z79.01 Long term (current) use of anticoagulants; Z86.711 Personal history of pulmonary embolism
CPT/HCPCS: 36415; 80053; 81001; 83690; 84703; 85025; 96374; 96375; J2405; J7030

== ENCOUNTER 2022-11-14 15:44 | Emergency (ER) | payer MEDICARE, OTHER ==
[~2022-11-14] VITALS: Ht 165.1 cm; Wt 93.6 kg
--- OUTSIDE RECORDS SUMMARY | 2022-11-14 15:46 | XMS ---
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 Events No recent Security Events currently on file CRITERIA MET - [facility] - Has Care Guidelines - PDMP - [facility] - 2 Visits in 30 Days - Group Notification CARE PROVIDERS MARCELINO PERRY Internal Medicine 07/18/2018-Current PHONE: Unknown Aron Hannah Anesthesiology: Pain Medicine 07/18/2018-Current PHONE: Unknown Guidelines Source: [facility] Guidelines Date: 02/18/2022 Care Recommendation: PATIENT HAS HISTORY COMPLEX REEGIONAL PAIN SYNDROME WELL CYCLICAL ABDOMINAL PAIN/NAUSEA/VOMITING.\T\nbsp;UNDER TREATMENT WITH ARON HANNAH MD PHD [facility].\T\nbsp; FOLLOW THIS REGIMEN WHEN PRESENTING TO ED FOR RESOLUTION OF SYMPTOMS: *HYDRATION IV *HYDROMORPHONE 1MG IV * KETOROLAC 30 MG IV *PROMETHAZINE 25MG IV Additional care guidelines exist for the following facilities: [facility] ( 05/21/2019 ) Care History Medical/Surgical 03/18/2022 [facility] Patient admitted to CCU as Inpatient. 03/16/2022 [facility] - Patient is currently established with [facility]. If patient is seen in the ED during business hours. Please contact CHWs at [facility]. Care Recommendation: If this patient has had 5 or more Emergency Department visits in the last 12 months.\T\nbsp;Patient will require education on the scope and purpose of the ED as an acute care provider not a Primary Care Provider and should not be utilized for chronic conditions.\T\nbsp; These are guidelines and the provider should exercise clinical judgment when providing care. 01/05/2021 [facility] On going care for cyclic vomiting syndrome. E.D. VISIT COUNT (12 MO.) 8 [facility] H. TOTAL 8 NOTE: Visits indicate total known visits. ED/UCC VISIT TRACKING (12 MO.) 11/14/2022 15:44 [facility] [place] TYPE: Emergency COMPLAINT: - ABDOMINAL PAIN 11/11/2022 13:20 [facility] [place] TYPE: Emergency [...] and (suspected) exposure to COVID-19 09/29/2022 15:10 [facility] [place] TYPE: Emergency COMPLAINT: - ABDOMINAL PAIN DIAGNOSES: - Unspecified abdominal pain - Other roasterman (current) drug therapy - Allergy status to other drugs, medicaments and biological substances - Allergy status to narcotic agent 06/13/2022 13:24 [facility] [place] TYPE: Emergency COMPLAINT: - ABDOMINAL PAIN DIAGNOSES: - Upper abdominal pain, unspecified - Allergy status to narcotic agent - termite exterminator (current) use of anticoagulants - Other roasterman (current) drug therapy - Allergy status to other drugs, medicaments and biological substances - Personal history of pulmonary embolism 05/09/2022 17:02 [facility] [place] TYPE: Emergency COMPLAINT: - VOMITING, ABD PAIN DIAGNOSES: - Cyclical vomiting syndrome unrelated to migraine - Other roasterman (current) drug therapy - Allergy status to narcotic agent - Allergy status to other drugs, medicaments and biological substances 03/16/2022 11:[address] [facility] [place] TYPE: Emergency COMPLAINT: - COLD SYMPTOMS, COUGH, FEVER 02/17/2022 16:34 [facility] [place] TYPE: Emergency COMPLAINT: - ABDOMINAL PAIN DIAGNOSES: - Allergy status to other drugs, medicaments and biological substances - Personal history of other venous thrombosis and embolism - Chronic pulmonary embolism - Allergy status to narcotic agent - skilled nursing (current) use of opiate analgesic - Cyclical vomiting syndrome unrelated to migraine - Nausea with vomiting, unspecified - Other roasterman (current) drug therapy INPATIENT VISIT TRACKING (12 MO.) 03/16/2022 17:21 [facility] [place] TYPE: Medical Surgical COMPLAINT: - ACUTE PE, PNEUMONIA DIAGNOSES: - Contact with and (suspected) exposure to COVID-19 - Other residential (current) drug therapy - Acute respiratory failure with hypoxia - Gastro-esophageal reflux disease without esophagitis - Other specified postprocedural states - Unspecified [...] - Unspecified mood [affective] disorder - Other roasterman (current) drug therapy - Acquired absence of other organs - Gastro-esophageal reflux disease without esophagitis - Depression, unspecified [email or web address]
[2022-11-14] MEDS ORDERED: ELIQUIS5 MG PO (17:35)
== END 2022-11-14 20:02 | disposition home or self-care (01) ==
LOC: ED 15:44
DX: R10.12 Left upper quadrant pain (principal); Z88.5 Allergy status to narcotic agent; Z88.8 Allergy status to other drugs, medicaments and biological substances; Z79.899 Other long term (current) drug therapy; Z79.01 Long term (current) use of anticoagulants
CPT/HCPCS: 36415; 80053; 81001; 83690; 84703; 85025; 96361; 96374; 96375; 99284-25; J2550; J7030

== ENCOUNTER 2023-03-14 12:07 | Emergency (ER) | payer MEDICARE, OTHER ==
[~2023-03-14] VITALS: Ht 165.1 cm; Wt 93.0 kg
[~2023-03-14 12:07] MED LIST changes: +OXYCODONE HCL5 MG PO
--- OUTSIDE RECORDS SUMMARY | 2023-03-14 12:08 | XMS ---
PreManage Notification: BRODY LINCOLN Security Ssis Developer Events 1 event(s) in the past 18 months Most recent security events: Elopement at [facility] 11/11/2022 13:20 - Patient eloped before treatment completed. - Patient with suicidal and/or homicidal ideations eloped. - Patient eloped with IV in place. Details: Patient LWBS. CRITERIA MET - Group Notification - PDMP - [facility] - Has Care Guidelines CARE PROVIDERS -, [place]- Dentist: Mobile Patrol Officer [facility] PHONE: [phone] MARCELINO PERRY Internal Medicine 07/18/2018-Current PHONE: Unknown Aron Hannah Anesthesiology: Pain Medicine 07/18/2018-Current PHONE: Unknown Guidelines Source: [facility] Guidelines Date: 02/18/2022 Care Recommendation: PATIENT HAS HISTORY COMPLEX REEGIONAL PAIN SYNDROME WELL CYCLICAL ABDOMINAL PAIN/NAUSEA/VOMITING.\T\nbsp;UNDER TREATMENT WITH ARON HANNAH MD PHD PAIN MANAGMENT [facility].\T\nbsp; FOLLOW THIS REGIMEN WHEN PRESENTING TO ED FOR RESOLUTION OF SYMPTOMS: *HYDRATION IV *HYDROMORPHONE 1MG IV * KETOROLAC 30 MG IV *PROMETHAZINE 25MG IV Additional care guidelines exist for the following facilities: [facility] ( 05/21/2019 ) Care History Medical/Surgical 03/18/2022 [facility] Patient admitted to CCU as Inpatient. 03/16/2022 [facility] - Patient is currently established with [facility]. If patient is seen in the ED during business hours. Please contact CHWs at [facility]. Care Recommendation: If this patient has had 5 or more Emergency Department visits in the last 12 months.\T\nbsp;Patient will require education on the scope and purpose of the ED as an acute care provider not a Primary Care Provider and should not be utilized for chronic conditions.\T\nbsp; These are guidelines and the provider should exercise clinical judgment when providing care. 01/05/2021 [facility] On going care for cyclic vomiting syndrome. E.D. VISIT COUNT (12 MO.) 8 [facility]. TOTAL 8 NOTE: Visits indicate total known visits. ED/UCC VISIT TRACKING (12 MO.) 03/14/2023 12:07 [facility] [place] TYPE: Emergency COMPLAINT: - VOMITING 11/14/2022 15:44 [facility] [place] TYPE: Emergency COMPLAINT: - ABDOMINAL PAIN DIAGNOSES: - Allergy status to narcotic agent - Allergy status to other drugs, medicaments and biological substances - Left upper quadrant pain - [facility] (current) use of anticoagulants - Other superintendent marine oil terminal (current) drug therapy 11/11/2022 13:20 [facility] [place] TYPE: Emergency COMPLAINT: - ABD PAIN, VOMITING DIAGNOSES: - Allergy status to narcotic agent - Allergy status to other drugs, medicaments and biological substances - Cyclical vomiting syndrome unrelated to migraine - [facility] (current) use of anticoagulants - Other chronic pain - Other skilled nursing (current) drug therapy - Personal history of other venous thrombosis and embolism - Personal history of pulmonary embolism - Procedure and treatment not carried out due to patient leaving prior to being seen by health care provider - Unspecified abdominal pain 10/04/2022 11:48 [facility] [place] TYPE: Emergency COMPLAINT: - ABD PAIN, V/D, DIFFICULTY BREATHING DIAGNOSES: - Allergy status to narcotic agent - Allergy status to other drugs, medicaments and biological substances - Chest pain, unspecified - Contact with and (suspected) exposure to COVID-19 - Personal history of other venous thrombosis and embolism - Personal history of pulmonary embolism 09/29/2022 15:10 [facility] [place] TYPE: Emergency COMPLAINT: - ABDOMINAL PAIN DIAGNOSES: - Allergy status to narcotic agent - Allergy status to other drugs, medicaments and biological substances - Other skilled nursing (current) drug therapy - Unspecified abdominal pain 06/13/2022 13:24 [facility] [place] TYPE: Emergency COMPLAINT: - ABDOMINAL PAIN DIAGNOSES: - Allergy status to narcotic agent - Allergy status to other drugs, medicaments and biological substances - emt intermediate (current) use of anticoagulants - Other skilled nursing (current) drug therapy - Personal history of pulmonary embolism - Upper abdominal pain, unspecified 05/09/2022 17:02 [facility] [place] TYPE: Emergency COMPLAINT: - VOMITING, ABD PAIN DIAGNOSES: - Allergy status to narcotic agent - Allergy status to other drugs, medicaments and biological substances - Cyclical vomiting syndrome unrelated to migraine - Other superintendent marine oil terminal (current) drug therapy 03/16/2022 11:39 [facility] [place] TYPE: Emergency COMPLAINT: - COLD SYMPTOMS, COUGH, FEVER INPATIENT VISIT TRACKING (12 MO.) 03/16/2022 17:[address] [facility] [place] [place] TYPE: Medical Surgical COMPLAINT: - ACUTE PE, PNEUMONIA DIAGNOSES: - Acquired absence of other organs - Acquired absence of other organs - Acquired absence of other specified parts of digestive tract - Acquired absence of other specified parts of digestive tract - Acute respiratory failure with hypoxia - Acute respiratory failure with hypoxia - Allergy status to narcotic agent - Allergy status to narcotic agent - Allergy status to other drugs, medicaments and biological substances - Allergy status to other drugs, medicaments and biological substances - Chronic pain syndrome - Chronic pain syndrome - Chronic pulmonary embolism - Chronic pulmonary embolism - Contact with and (suspected) exposure to COVID-19 - Contact with and (suspected) exposure to COVID-19 - Depression, unspecified - Depression, unspecified - Gastro-esophageal reflux disease without esophagitis - Gastro-esophageal reflux disease without esophagitis - Other superintendent marine oil terminal (current) drug therapy - Other skilled nursing (current) drug therapy - Other pulmonary embolism without acute cor pulmonale - Other specified postprocedural states - Other specified postprocedural states - Personal history of other venous thrombosis and embolism - Personal history of other venous thrombosis and embolism - Pneumonia due to Streptococcus pneumoniae - Pneumonia due to Streptococcus pneumoniae - Unspecified mood [affective] disorder - Unspecified mood [affective] disorder [email or web address]
[2023-03-14 14:19] VITALS: BP 125/82
== END 2023-03-14 14:21 | disposition home or self-care (01) ==
LOC: ED 12:07
DX: R11.2 Nausea with vomiting, unspecified (principal); R10.9 Unspecified abdominal pain; Z88.5 Allergy status to narcotic agent; Z88.8 Allergy status to other drugs, medicaments and biological substances; Z79.899 Other long term (current) drug therapy; Z79.01 Long term (current) use of anticoagulants
CPT/HCPCS: J2405

== ENCOUNTER 2023-07-03 14:34 | Emergency (ER) | payer MEDICARE, OTHER ==
[~2023-07-03] VITALS: Ht 165.1 cm; Wt 85.9 kg
--- OUTSIDE RECORDS SUMMARY | ~2023-07-03 | XMS | Continuity of Care Document ---
Demographics + + + | Address | [address] | | | [place] [address] | + + + | Preferred Language | Unknown | + + + | Marital Status | Never | + + + | Advent Affiliation | Unknown | + + + | Race | White | + + + | Ethnic Group | Not or | + + + Author + + + | Author | [facility] | + + + | Organization | [facility] | + + + | Address | [address] | | | [place] [address] | + + + | Phone | | + + + Care Team Providers + + + + | Care Jersey Knitter Name | Role | Phone | + + + + Unavailable | Unavailable | + + + + Unavailable | Unavailable | + + + + Unavailable | Unavailable | + + + + Unavailable | Unavailable | + + + + Unavailable | Unavailable | + + + + Unavailable | Unavailable | + + + + Unavailable | Unavailable | + + + + Unavailable | Unavailable | + + + + Unavailable | Unavailable | + + + + Allergies and Intolerances + + + + + + | date | description | facility | reaction | severity | + + + + + + | (no date) | Haloperidol | [facility] | (no reaction) | (no severity) | | | [facility] | | | + + + + + + | (no date) | NO ALLERGY | [facility] | (no reaction) | (no severity) | | | INFORMATION | [facility] - | | | | | AVAILABLE | [place] | | | + + + + + + | (no date) | Haldol | [facility] | (no reaction) | (no severity) | | | | [facility] | | | + + + + + + | (no date) | Mild | [facility] | (no reaction) | (no severity) | | | | [facility] | | | + + + + + + | (no date) | | [facility] | (no reaction) | (no severity) | | | Izzyn | [facility] | | | [facility] | | | + + + + + + | (no date) | Morphine | [facility] | (no reaction) | (no severity) | | | | [facility] | | | + + + + + + | (no date) | Anxiety | [facility] | (no reaction) | (no severity) | | | [facility] | | | + + + + + + | (no date) | Haloperidol | [facility] | (no reaction) | (no severity) | | | [facility] | | | + + + + + + | (no date) | haloperidol | [facility] | (no reaction) | (no severity) | | | [facility] | | | + + + + + + | (no date) | Morphine | [facility] | (no reaction) | (no severity) | | | [facility] | | | + + + + + + | (no date) | morphine | [facility] | (no reaction) | (no severity) | | | [facility] | | | + + + + + + | (no date) | Morphine | [facility] | (no reaction) | (no severity) | | | [facility] | | | + + + + + + | (no date) | | [facility] | (no reaction) | (no severity) | | | Prochlorperazin | [facility] | [facility] | [facility] | | | + + + + + + | (no date) | Haldol 5 MG/ML | [facility] | (no reaction) | (no severity) | | | Injection | [facility] | | | | | Solution | | | | + + + + + + | (no date) | | [facility] | (no reaction) | (no severity) | | | prochlorperazin | | | | | | e | | | | + + + + + + | (no date) | haloperidol | [facility] | (no reaction) | (no severity) | + + + + + + | (no date) | morphine | [facility] | (no reaction) | (no severity) | + + + + + + | (no date) | Haloperidol | [facility] | (no reaction) | (no severity) | | | | [facility] | | | + + + + + + | (no date) | Morphine | [facility] | (no reaction) | (no severity) | | | Miscellaneous | [facility] | | | + + + + + + | (no date) | | [facility] | (no reaction) | (no severity) | | | Prochlorperazin | [facility] | | | + + + + + + Encounters No information. Functional Status No information. Immunizations + + + + | date | description | facility | + + + + | 1992 00:00 | DTP | [facility] | | | | | + + + + | 1992 00:00 | DTP | [facility] | | | | | + + + + | 1993-01-11 00:00 | DTP | [facility] | | | | | + + + + | 1993-10-20 00:00 | DTP | [facility] | | | | | + + + + | 1992 00:00 | OPV (HISTORICAL ONLY) | [facility] | | | | | + + + + | 1992 00:00 | OPV (HISTORICAL ONLY) | [facility] | | | | | + + + + | 1993-10-20 00:00 | OPV (HISTORICAL ONLY) | [facility] | | | | | + + + + | 1993-10-20 00:00 | MMR | [facility] | | | | | + + + + | 2008-10-02 00:00 | Meningococcus | [facility] | | | | | + + + + | 2008-10-02 00:00 | Tdap | [facility] | | | | | + + + + | 2015-02-22 00:00 | Tdap | [facility] | | | | | + + + + | 2022-05-21 00:00 | Influenza, Seasonal, | [facility] | | | Injectable, Preservative | | | | Free | | + + + + | 2022-06-08 00:00 | Influenza, Seasonal, | [facility] | | | Injectable, Preservative | | | | Free | | + + + + | 2022-09-20 00:00 | Influenza, Seasonal, | [facility] | | | Injectable, Preservative | | | | Free | | + + + + | 2022-09-29 00:00 | Influenza, Seasonal, | [facility] | | | Injectable, Preservative | | | | Free | | + + + + | 2022-10-04 00:00 | Influenza, Seasonal, | [facility] | | | Injectable, Preservative | | | | Free | | + + + + | 2022-11-12 00:00 | Influenza, Seasonal, | [facility] | | | Injectable, Preservative | | | | Free | | + + + + | 2022-11-14 00:00 | Influenza, Seasonal, | [facility] | | | Injectable, Preservative | | | | Free | | + + + + | 2022-12-27 00:00 | Influenza, Seasonal, | [facility] | | | Injectable, Preservative | | | | Free | | + + + + | 2023-03-14 00:00 | Influenza, Seasonal, | [facility] | | | Injectable, Preservative | | | | Free | | + + + + | 2023-05-09 00:00 | Influenza, Seasonal, | [facility] | | | Injectable, Preservative | | | | Free | | + + + + | 2023-05-16 00:00 | Influenza, Seasonal, | [facility] | | | Injectable, Preservative | | | | Free | | + + + + | 2022-05-21 00:00 | Influenza, Injectable, | [facility] | | | Quadrivalent, Preservative | | + + + + | 2022-06-08 00:00 | Influenza, Injectable, | [facility] | | | Quadrivalent, Preservative | | + + + + | 2022-09-20 00:00 | Influenza, Injectable, | [facility] | | | Quadrivalent, Preservative | | + + + + | 2022-09-29 00:00 | Influenza, Injectable, | [facility] | | | Quadrivalent, Preservative | | + + + + | 2022-10-04 00:00 | Influenza, Injectable, | [facility] | | | Quadrivalent, Preservative | | + + + + | 2022-11-12 00:00 | Influenza, Injectable, | [facility] | | | Quadrivalent, Preservative | | + + + + | 2022-11-14 00:00 | Influenza, Injectable, | [facility] | | | Quadrivalent, Preservative | | + + + + | 2022-12-27 00:00 | Influenza, Injectable, | [facility] | | | Quadrivalent, Preservative | | + + + + | 2023-03-14 00:00 | Influenza, Injectable, | [facility] | | | Quadrivalent, Preservative | | + + + + | 2023-05-09 00:00 | Influenza, Injectable, | [facility] | | | Quadrivalent, Preservative | | + + + + | 2023-05-16 00:00 | Influenza, Injectable, | [facility] | | | Quadrivalent, Preservative | | + + + + | 2015-02-22 00:00 | DTaP | [facility] | + + + + | 2015-02-22 00:00 | DTaP | [facility] | + + + + | 2015-02-22 00:00 | DTaP | [facility] | + + + + | 2015-02-22 00:00 | DTaP | [facility] | + + + + | 2015-02-22 00:00 | DTaP | [facility] | + + + + | 2015-02-22 00:00 | DTaP | [facility] | + + + + | 2005-05-12 00:00 | jeffery Orta/tex (2 dose) | [facility] | | | | | + + + + Medications + + + + | date | description | facility | + + + + | 2022-05-21 00:00 | DEXTROMETHORPHAN | [facility] | | | HBR/QUINIDINE | | + + + + | 2022-06-08 00:00 | DEXTROMETHORPHAN | [facility] | | | HBR/QUINIDINE | | + + + + | 2022-09-20 00:00 | DEXTROMETHORPHAN | [facility] | | | HBR/QUINIDINE | | + + + + | 2022-09-29 00:00 | DEXTROMETHORPHAN | [facility] | | | HBR/QUINIDINE | | + + + + | 2022-10-04 00:00 | DEXTROMETHORPHAN | [facility] | | | HBR/QUINIDINE | | + + + + | 2022-11-12 00:00 | DEXTROMETHORPHAN | [facility] | | | HBR/QUINIDINE | | + + + + | 2022-11-14 00:00 | DEXTROMETHORPHAN | [facility] | | | HBR/QUINIDINE | | + + + + | 2022-12-27 00:00 | DEXTROMETHORPHAN | [facility] | | | HBR/QUINIDINE | | + + + + | 2023-03-14 00:00 | DEXTROMETHORPHAN | [facility] | | | HBR/QUINIDINE | | + + + + | 2023-05-09 00:00 | DEXTROMETHORPHAN | [facility] | | | HBR/QUINIDINE | | + + + + | 2023-05-16 00:00 | DEXTROMETHORPHAN | [facility] | | | HBR/QUINIDINE | | + + + + | 2022-05-21 00:00 | LORAZEPAM | [facility] | + + + + | 2022-06-08 00:00 | LORAZEPAM | [facility] | + + + + | 2022-09-20 00:00 | LORAZEPAM | [facility] | + + + + | 2022-09-29 00:00 | LORAZEPAM | [facility] | + + + + | 2022-10-04 00:00 | LORAZEPAM | [facility] | + + + + | 2022-11-12 00:00 | LORAZEPAM | [facility] | + + + + | 2022-11-14 00:00 | LORAZEPAM | [facility] | + + + + | 2022-12-27 00:00 | LORAZEPAM | [facility] | + + + + | 2023-03-14 00:00 | LORAZEPAM | [facility] | + + + + | 2023-05-09 00:00 | LORAZEPAM | [facility] | + + + + | 2023-05-16 00:00 | LORAZEPAM | [facility] | + + + + | 2022-05-21 00:00 | ONDANSETRON | [facility] | + + + + | 2022-06-08 00:00 | ONDANSETRON | [facility] | + + + + | 2022-09-20 00:00 | ONDANSETRON | [facility] | + + + + | 2022-09-29 00:00 | ONDANSETRON | [facility] | + + + + | 2022-10-04 00:00 | ONDANSETRON | [facility] | + + + + | 2022-11-12 00:00 | ONDANSETRON | [facility] | + + + + | 2022-11-14 00:00 | ONDANSETRON | [facility] | + + + + | 2022-12-27 00:00 | ONDANSETRON | [facility] | + + + + | 2023-03-14 00:00 | ONDANSETRON | [facility] | + + + + | 2023-05-09 00:00 | ONDANSETRON | [facility] | + + + + | 2023-05-16 00:00 | ONDANSETRON | [facility] | + + + + | 2021-05-05 00:00 | OXYCODONE | [facility] | | | HCL/ACETAMINOPHEN | | + + + + | 2021-05-05 00:00 | OXYCODONE | [facility] | | | HCL/ACETAMINOPHEN | | + + + + | 2021-05-05 00:00 | OXYCODONE | [facility] | | | HCL/ACETAMINOPHEN | | + + + + | 2021-05-05 00:00 | OXYCODONE | [facility] | | | HCL/ACETAMINOPHEN | | + + + + | 2021-05-05 00:00 | OXYCODONE | [facility] | | | HCL/ACETAMINOPHEN | | + + + + | 2021-05-05 00:00 | OXYCODONE | [facility] | | | HCL/ACETAMINOPHEN | | + + + + | 2022-05-21 00:00 | OXYCODONE | [facility] | | | HCL/ACETAMINOPHEN | | + + + + | 2022-06-08 00:00 | OXYCODONE | [facility] | | | HCL/ACETAMINOPHEN | | + + + + | 2022-09-20 00:00 | OXYCODONE | [facility] | | | HCL/ACETAMINOPHEN | | + + + + | 2022-09-29 00:00 | OXYCODONE | [facility] | | | HCL/ACETAMINOPHEN | | + + + + | 2022-10-04 00:00 | OXYCODONE | [facility] | | | HCL/ACETAMINOPHEN | | + + + + | 2022-11-12 00:00 | OXYCODONE | [facility] | | | HCL/ACETAMINOPHEN | | + + + + | 2022-11-14 00:00 | OXYCODONE | [facility] | | | HCL/ACETAMINOPHEN | | + + + + | 2022-12-27 00:00 | OXYCODONE | [facility] | | | HCL/ACETAMINOPHEN | | + + + + | 2023-03-14 00:00 | OXYCODONE | [facility] | | | HCL/ACETAMINOPHEN | | + + + + | 2023-05-09 00:00 | OXYCODONE | [facility] | | | HCL/ACETAMINOPHEN | | + + + + | 2023-05-16 00:00 | OXYCODONE | [facility] | | | HCL/ACETAMINOPHEN | | + + + + | 2022-05-21 00:00 | OXYCODONE HCL | [facility] | + + + + | 2022-06-08 00:00 | OXYCODONE HCL | [facility] | + + + + | 2022-09-20 00:00 | OXYCODONE HCL | [facility] | + + + + | 2022-09-29 00:00 | OXYCODONE HCL | [facility] | + + + + | 2022-10-04 00:00 | OXYCODONE HCL | [facility] | + + + + | 2022-11-12 00:00 | OXYCODONE HCL | [facility] | + + + + | 2022-11-14 00:00 | OXYCODONE HCL | [facility] | + + + + | 2022-12-27 00:00 | OXYCODONE HCL | [facility] | + + + + | 2023-03-14 00:00 | OXYCODONE HCL | [facility] | + + + + | 2023-05-09 00:00 | OXYCODONE HCL | [facility] | + + + + | 2023-05-16 00:00 | OXYCODONE HCL | [facility] | + + + + | 2021-07-25 00:00 | OXYCODONE HCL | [facility] | + + + + | 2021-07-25 00:00 | OXYCODONE HCL | [facility] | + + + + | 2021-07-25 00:00 | OXYCODONE HCL | [facility] | + + + + | 2021-07-25 00:00 | OXYCODONE HCL | [facility] | + + + + | 2021-07-25 00:00 | OXYCODONE HCL | [facility] | + + + + | 2021-07-25 00:00 | OXYCODONE HCL | [facility] | + + + + | 2022-05-21 00:00 | OXYCODONE HCL | [facility] | + + + + | 2022-06-08 00:00 | OXYCODONE HCL | [facility] | + + + + | 2022-09-20 00:00 | OXYCODONE HCL | [facility] | + + + + | 2022-09-29 00:00 | OXYCODONE HCL | [facility] | + + + + | 2019-07-13 00:00 | oxycodone hydrochloride 10 | [facility] | | | MG Oral Tablet | | + + + + | 2020-05-02 00:00 | oxycodone hydrochloride 10 | [facility] | | | MG Oral Tablet | | + + + + | 2020-07-16 00:00 | oxycodone hydrochloride 10 | [facility] | | | MG Oral Tablet | | + + + + | 2020-09-26 00:00 | oxycodone hydrochloride 10 | [facility] | | | MG Oral Tablet | | + + + + | 2020-11-28 00:00 | oxycodone hydrochloride 10 | [facility] | | | MG Oral Tablet | | + + + + | 2021-01-08 00:00 | oxycodone hydrochloride 10 | [facility] | | | MG Oral Tablet | | + + + + | 2021-05-06 00:00 | oxycodone hydrochloride 10 | [facility] | | | MG Oral Tablet | | + + + + | 2021-06-09 00:00 | oxycodone hydrochloride 10 | [facility] | | | MG Oral Tablet | | + + + + | 2021-07-23 00:00 | oxycodone hydrochloride 10 | [facility] | | | MG Oral Tablet | | + + + + | 2021-08-18 00:00 | oxycodone hydrochloride 10 | [facility] | | | MG Oral Tablet | | + + + + | 2021-09-23 00:00 | oxycodone hydrochloride 10 | [facility] | | | MG Oral Tablet | | + + + + | 2021-10-28 00:00 | oxycodone hydrochloride 10 | [facility] | | | MG Oral Tablet | | + + + + | 2021-12-03 00:00 | oxycodone hydrochloride 10 | [facility] | | | MG Oral Tablet | | + + + + | 2022-01-05 00:00 | oxycodone hydrochloride 10 | [facility] | | | MG Oral Tablet | | + + + + | 2022-01-12 00:00 | oxycodone hydrochloride 10 | [facility] | | | MG Oral Tablet | | + + + + | 2022-06-15 00:00 | oxycodone hydrochloride 10 | [facility] | | | MG Oral Tablet | | + + + + | 2022-07-21 00:00 | oxycodone hydrochloride 10 | [facility] | | | MG Oral Tablet | | + + + + | 2022-09-01 00:00 | oxycodone hydrochloride 10 | [facility] | | | MG Oral Tablet | | + + + + | 2022-10-19 00:00 | oxycodone hydrochloride 10 | [facility] | | | MG Oral Tablet | | + + + + | 2023-01-18 00:00 | oxycodone hydrochloride 10 | [facility] | | | MG Oral Tablet | | + + + + | 2022-05-21 00:00 | DORINDA/ME CARROLL/SOD | [facility] | | | PHOS/PHEN/HYOS | | + + + + | 2022-06-08 00:00 | MTH/ME BLUE/SOD | [facility] | | | PHOS/PHEN/HYOS | | + + + + | 2022-09-20 00:00 | MTH/ME BLUE/SOD | [facility] | | | PHOS/PHEN/HYOS | | + + + + | 2022-09-29 00:00 | MTH/ME BLUE/SOD | [facility] | | | PHOS/PHEN/HYOS | | + + + + | 2022-10-04 00:00 | MTH/ME BLUE/SOD | [facility] | | | PHOS/PHEN/HYOS | | + + + + | 2022-11-12 00:00 | MTH/ME BLUE/SOD | [facility] | | | PHOS/PHEN/HYOS | | + + + + | 2022-11-14 00:00 | MTH/ME BLUE/SOD | [facility] | | | PHOS/PHEN/HYOS | | + + + + | 2022-12-27 00:00 | [facility]/ME BLUE/SOD | [facility] | | | PHOS/PHEN/HYOS | | + + + + | 2023-03-14 00:00 | [facility]/ME BLUE/SOD | [facility] | | | PHOS/PHEN/HYOS | | + + + + | 2023-05-09 00:00 | MTH/ME BLUE/SOD | [facility] | | | PHOS/PHEN/HYOS | | + + + + | 2023-05-16 00:00 | DORINDA/ BLUE/SOD | [facility] | | | PHOS/PHEN/HYOS | | + + + + | 2022-05-21 00:00 | METHYLPHENIDATE HCL | [facility] | + + + + | 2022-06-08 00:00 | METHYLPHENIDATE HCL | [facility] | + + + + | 2022-09-20 00:00 | METHYLPHENIDATE HCL | [facility] | + + + + | 2022-09-29 00:00 | METHYLPHENIDATE HCL | [facility] | + + + + | 2022-10-04 00:00 | METHYLPHENIDATE HCL | [facility] | + + + + | 2022-11-12 00:00 | METHYLPHENIDATE HCL | [facility] | + + + + | 2022-11-14 00:00 | METHYLPHENIDATE HCL | [facility] | + + + + | 2022-12-27 00:00 | METHYLPHENIDATE HCL | [facility] | + + + + | 2023-03-14 00:00 | METHYLPHENIDATE HCL | [facility] | + + + + | 2023-05-09 00:00 | METHYLPHENIDATE HCL | [facility] | + + + + | 2023-05-16 00:00 | METHYLPHENIDATE HCL | [facility] | + + + + | 2022-05-21 00:00 | DEXTROMETHORPHAN HBR | [facility] | + + + + | 2022-06-08 00:00 | DEXTROMETHORPHAN HBR | [facility] | + + + + | 2022-09-20 00:00 | DEXTROMETHORPHAN HBR | [facility] | + + + + | 2022-09-29 00:00 | DEXTROMETHORPHAN HBR | [facility] | + + + + | 2022-10-04 00:00 | DEXTROMETHORPHAN HBR | [facility] | + + + + | 2022-11-12 00:00 | DEXTROMETHORPHAN HBR | [facility] | + + + + | 2022-11-14 00:00 | DEXTROMETHORPHAN HBR | [facility] | + + + + | 2022-12-27 00:00 | DEXTROMETHORPHAN HBR | [facility] | + + + + | 2023-03-14 00:00 | DEXTROMETHORPHAN HBR | [facility] | + + + + | 2023-05-09 00:00 | DEXTROMETHORPHAN HBR | [facility] | + + + + | 2023-05-16 00:00 | DEXTROMETHORPHAN HBR | [facility] | + + + + | 2022-05-21 00:00 | GLYCERIN | [facility] | + + + + | 2022-06-08 00:00 | GLYCERIN | [facility] | + + + + | 2022-09-20 00:00 | GLYCERIN | [facility] | + + + + | 2022-09-29 00:00 | GLYCERIN | [facility] | + + + + | 2022-10-04 00:00 | GLYCERIN | [facility] | + + + + | 2022-11-12 00:00 | GLYCERIN | [facility] | + + + + | 2022-11-14 00:00 | GLYCERIN | [facility] | + + + + | 2022-12-27 00:00 | GLYCERIN | [facility] | + + + + | 2023-03-14 00:00 | GLYCERIN | [facility] | + + + + | 2023-05-09 00:00 | GLYCERIN | [facility] | + + + + | 2023-05-16 00:00 | GLYCERIN | [facility] | + + + + | 2022-05-21 00:00 | MELATONIN | [facility] | + + + + | 2022-06-08 00:00 | MELATONIN | [facility] | + + + + | 2022-09-20 00:00 | MELATONIN | [facility] | + + + + | 2022-09-29 00:00 | MELATONIN | [facility] | + + + + | 2022-10-04 00:00 | MELATONIN | [facility] | + + + + | 2022-11-12 00:00 | MELATONIN | [facility] | + + + + | 2022-11-14 00:00 | MELATONIN | [facility] | + + + + | 2022-12-27 00:00 | MELATONIN | [facility] | + + + + | 2023-03-14 00:00 | MELATONIN | [facility] | + + + + | 2023-05-09 00:00 | MELATONIN | [facility] | + + + + | 2023-05-16 00:00 | MELATONIN | [facility] | + + + + | 2020-03-29 00:00 | APIXABAN | [facility] | + + + + | 2020-03-29 00:00 | APIXABAN | [facility] | + + + + | 2020-03-29 00:00 | APIXABAN | [facility] | + + + + | 2020-03-29 00:00 | APIXABAN | [facility] | + + + + | 2020-03-29 00:00 | APIXABAN | [facility] | + + + + | 2020-03-29 00:00 | APIXABAN | [facility] | + + + + | 2020-12-09 00:00 | APIXABAN | [facility] | + + + + | 2020-12-09 00:00 | APIX[facility] | [facility] | + + + + | 2020-12-09 00:00 | [facility] | [facility] | + + + + | 2020-12-09 00:00 | [facility] | [facility] | + + + + | 2020-12-09 00:00 | [facility] | [facility] | + + + + | 2020-12-09 00:00 | [facility] | [facility] | + + + + | 2022-05-21 00:00 | [facility] | [facility] | + + + + | 2022-06-08 00:00 | [facility] | [facility] | + + + + | 2022-09-20 00:00 | [facility] | [facility] | + + + + | 2022-09-29 00:00 | [facility] | [facility] | + + + + | 2022-10-04 00:00 | [facility] | [facility] | + + + + | 2022-11-12 00:00 | [facility] | [facility] | + + + + | 2022-11-14 00:00 | [facility] | [facility] | + + + + | 2022-12-27 00:00 | [facility] | [facility] | + + + + | 2023-03-14 00:00 | [facility] | [facility] | + + + + | 2023-05-09 00:00 | [facility] | [facility] | + + + + | 2023-05-16 00:00 | [facility] | [facility] | + + + + | 2020-05-02 00:00 | apixaban 5 MG Oral Tablet | [facility] | | | [Eliquis] | | + + + + | 2022-05-18 00:00 | 168 HR buprenorphine 0.015 | [facility] | | | MG/HR Transdermal System | | + + + + | 2022-06-16 00:00 | 168 HR buprenorphine 0.015 | [facility] | | | MG/HR Transdermal System | | + + + + | 2022-07-21 00:00 | 168 HR buprenorphine 0.015 | [facility] | | | MG/HR Transdermal System | | + + + + | 2022-09-01 00:00 | 168 HR buprenorphine 0.015 | [facility] | | | MG/HR Transdermal System | | + + + + | 2022-10-19 00:00 | 168 HR buprenorphine 0.015 | [facility] | | | MG/HR Transdermal System | | + + + + | 2023-01-18 00:00 | 168 HR buprenorphine 0.015 | [facility] | | | MG/HR Transdermal System | | + + + + | 2019-09-28 00:00 | 168 HR buprenorphine 0.015 | [facility] | | | MG/HR Transdermal System | | | | [BuTrans] | | + + + + | 2019-11-02 00:00 | 168 HR buprenorphine 0.015 | [facility] | | | MG/HR Transdermal System | | | | [BuTrans] | | + + + + | 2020-02-01 00:00 | 168 HR buprenorphine 0.015 | [facility] | | | MG/HR Transdermal System | | | | [BuTrans] | | + + + + | 2020-04-17 00:00 | 168 HR buprenorphine 0.015 | [facility] | | | MG/HR Transdermal System | | | | [BuTrans] | | + + + + | 2020-05-02 00:00 | 168 HR buprenorphine 0.015 | [facility] | | | MG/HR Transdermal System | | | | [BuTrans] | | + + + + | 2020-07-16 00:00 | 168 HR buprenorphine 0.015 | [facility] | | | MG/HR Transdermal System | | | | [BuTrans] | | + + + + | 2020-09-26 00:00 | 168 HR buprenorphine 0.015 | [facility] | | | MG/HR Transdermal System | | | | [BuTrans] | | + + + + | 2020-11-28 00:00 | 168 HR buprenorphine 0.015 | [facility] | | | MG/HR Transdermal System | | | | [BuTrans] | | + + + + | 2021-01-08 00:00 | 168 HR buprenorphine 0.015 | [facility] | | | MG/HR Transdermal System | | | | [BuTrans] | | + + + + | 2021-06-24 00:00 | 168 HR buprenorphine 0.015 | [facility] | | | MG/HR Transdermal System | | | | [BuTrans] | | + + + + | 2021-09-23 00:00 | 168 HR buprenorphine 0.015 | [facility] | | | MG/HR Transdermal System | | | | [BuTrans] | | + + + + | 2022-01-04 00:00 | 168 HR buprenorphine 0.015 | [facility] | | | MG/HR Transdermal System | | | | [BuTrans] | | + + + + | 2022-01-05 00:00 | 168 HR buprenorphine 0.015 | [facility] | | | MG/HR Transdermal System | | | | [BuTrans] | | + + + + | 2022-01-12 00:00 | 168 HR buprenorphine 0.015 | [facility] | | | MG/HR Transdermal System | | | | [BuTrans] | | + + + + | 2022-05-18 00:00 | 168 HR buprenorphine 0.015 | [facility] | | | MG/HR Transdermal System | | | | [BuTrans] | | + + + + | 2022-05-21 00:00 | [facility] | [facility] | + + + + | 2022-06-08 00:00 | [facility] | [facility] | + + + + | 2022-09-20 00:00 | [facility] | [facility] | + + + + | 2022-09-29 00:00 | [facility] | [facility] | + + + + | 2022-10-04 00:00 | [facility] | [facility] | + + + + | 2022-11-12 00:00 | [facility] | [facility] | + + + + | 2022-11-14 00:00 | [facility] | [facility] | + + + + | 2022-12-27 00:00 | [facility] | [facility] | + + + + | 2023-03-14 00:00 | [facility] | [facility] | + + + + | 2023-05-09 00:00 | [facility] | [facility] | + + + + | 2023-05-16 00:00 | [facility]CL | [facility] | + + + + | 2022-05-21 00:00 | MELOXICAM | [facility] | + + + + | 2022-06-08 00:00 | MELOXICAM | [facility] | + + + + | 2022-09-20 00:00 | MELOXICAM | [facility] | + + + + | 2022-09-29 00:00 | MELOXICAM | [facility] | + + + + | 2022-10-04 00:00 | MELOXICAM | [facility] | + + + + | 2022-11-12 00:00 | MELOXICAM | [facility] | + + + + | 2022-11-14 00:00 | MELOXICAM | [facility] | + + + + | 2022-12-27 00:00 | MELOXICAM | [facility] | + + + + | 2023-03-14 00:00 | MELOXICAM | [facility] | + + + + | 2023-05-09 00:00 | MELOXICAM | [facility] | + + + + | 2023-05-16 00:00 | MELOXICAM | [facility] | + + + + | 2022-05-21 00:00 | TOPIRAMATE | [facility] | + + + + | 2022-06-08 00:00 | TOPIRAMATE | [facility] | + + + + | 2022-09-20 00:00 | TOPIRAMATE | [facility] | + + + + | 2022-09-29 00:00 | TOPIRAMATE | [facility] | + + + + | 2022-10-04 00:00 | TOPIRAMATE | [facility] | + + + + | 2022-11-12 00:00 | TOPIRAMATE | [facility] | + + + + | 2022-11-14 00:00 | TOPIRAMATE | [facility] | + + + + | 2022-12-27 00:00 | TOPIRAMATE | [facility] | + + + + | 2023-03-14 00:00 | TOPIRAMATE | [facility] | + + + + | 2023-05-09 00:00 | TOPIRAMATE | [facility] | + + + + | 2023-05-16 00:00 | TOPIRAMATE | [facility] | + + + + | 2022-05-21 00:00 | Buprenorphine | [facility] | + + + + | 2022-06-08 00:00 | Buprenorphine | [facility] | + + + + | 2022-09-20 00:00 | Buprenorphine | [facility] | + + + + | 2022-09-29 00:00 | Buprenorphine | [facility] | + + + + | 2022-10-04 00:00 | Buprenorphine | [facility] | + + + + | 2022-11-12 00:00 | Buprenorphine | [facility] | + + + + | 2022-11-14 00:00 | Buprenorphine | [facility] | + + + + | 2022-12-27 00:00 | Buprenorphine | [facility] | + + + + | 2023-03-14 00:00 | Buprenorphine | [facility] | + + + + | 2023-05-09 00:00 | Buprenorphine | [facility] | + + + + | 2023-05-16 00:00 | Buprenorphine | [facility] | + + + + | 2019-08-08 00:00 | Elva 10MCG/HR | [facility] | | | Transdermal Patch Weekly | | + + + + | 2022-05-21 00:00 | BREXPIPRAZOLE | [facility] | + + + + | 2022-06-08 00:00 | BREXPIPRAZOLE | [facility] | + + + + | 2022-09-20 00:00 | BREXPIPRAZOLE | [facility] | + + + + | 2022-09-29 00:00 | BREXPIPRAZOLE | [facility] | + + + + | 2022-10-04 00:00 | BREXPIPRAZOLE | [facility] | + + + + | 2022-11-12 00:00 | BREXPIPRAZOLE | [facility] | + + + + | 2022-11-14 00:00 | BREXPIPRAZOLE | [facility] | + + + + | 2022-12-27 00:00 | BREXPIPRAZOLE | [facility] | + + + + | 2023-03-14 00:00 | BREXPIPRAZOLE | [facility] | + + + + | 2023-05-09 00:00 | BREXPIPRAZOLE | [facility] | + + + + | 2023-05-16 00:00 | BREXPIPRAZOLE | [facility] | + + + + | 2022-05-21 00:00 | KETOROLAC TROMETHAMINE | [facility] | + + + + | 2022-06-08 00:00 | KETOROLAC TROMETHAMINE | [facility] | + + + + | 2022-09-20 00:00 | KETOROLAC TROMETHAMINE | [facility] | + + + + | 2022-09-29 00:00 | KETOROLAC TROMETHAMINE | [facility] | + + + + | 2022-10-04 00:00 | KETOROLAC TROMETHAMINE | [facility] | + + + + | 2022-11-12 00:00 | KETOROLAC TROMETHAMINE | [facility] | + + + + | 2022-11-14 00:00 | KETOROLAC TROMETHAMINE | [facility] | + + + + | 2022-12-27 00:00 | KETOROLAC TROMETHAMINE | [facility] | + + + + | 2023-03-14 00:00 | KETOROLAC TROMETHAMINE | [facility] | + + + + | 2023-05-09 00:00 | KETOROLAC TROMETHAMINE | [facility] | + + + + | 2023-05-16 00:00 | KETOROLAC TROMETHAMINE | [facility] | + + + + | 2020-05-02 00:00 | Eliquis 5 MG Oral Tablet | [facility] | | | | | + + + + | 2020-07-16 00:00 | Promethazine HCl 25 MG/ML | [facility] | | | Injection Solution | | + + + + | 2022-05-21 00:00 | FLUTICASONE PROPIONATE 50 | [facility] | | | MCG | | + + + + | 2022-06-08 00:00 | FLUTICASONE PROPIONATE 50 | [facility] | | | MCG | | + + + + | 2022-09-20 00:00 | FLUTICASONE PROPIONATE 50 | [facility] | | | MCG | | + + + + | 2022-09-29 00:00 | FLUTICASONE PROPIONATE 50 | [facility] | | | MCG | | + + + + | 2022-10-04 00:00 | FLUTICASONE PROPIONATE 50 | [facility] | | | MCG | | + + + + | 2022-11-12 00:00 | FLUTICASONE PROPIONATE 50 | [facility] | | | MCG | | + + + + | 2022-11-14 00:00 | FLUTICASONE PROPIONATE 50 | [facility] | | | MCG | | + + + + | 2022-12-27 00:00 | FLUTICASONE PROPIONATE 50 | [facility] | | | MCG | | + + + + | 2023-03-14 00:00 | FLUTICASONE PROPIONATE 50 | [facility] | | | MCG | | + + + + | 2023-05-09 00:00 | FLUTICASONE PROPIONATE 50 | [facility] | | | MCG | | + + + + | 2023-05-16 00:00 | FLUTICASONE PROPIONATE 50 | [facility] | | | MCG | | + + + + | 2022-05-18 00:00 | Buprenorphine 15 MCG/HR | [facility] | | | Transdermal Patch Weekly | | + + + + | 2022-06-16 00:00 | Buprenorphine 15 MCG/HR | [facility] | | | Transdermal Patch Weekly | | + + + + | 2022-07-21 00:00 | Buprenorphine 15 MCG/HR | [facility] | | | Transdermal Patch Weekly | | + + + + | 2022-09-01 00:00 | Buprenorphine 15 MCG/HR | [facility] | | | Transdermal Patch Weekly | | + + + + | 2022-10-19 00:00 | Buprenorphine 15 MCG/HR | [facility] | | | Transdermal Patch Weekly | | + + + + | 2023-01-18 00:00 | Buprenorphine 15 MCG/HR | [facility] | | | Transdermal Patch Weekly | | + + + + | 2019-09-28 00:00 | Butrans 15 MCG/HR | [facility] | | | Transdermal Patch Weekly | | + + + + | 2019-11-02 00:00 | Butrans 15 MCG/HR | [facility] | | | Transdermal Patch Weekly | | + + + + | 2020-02-01 00:00 | Butrans 15 MCG/HR | [facility] | | | Transdermal Patch Weekly | | + + + + | 2020-04-17 00:00 | Butrans 15 MCG/HR | [facility] | | | Transdermal Patch Weekly | | + + + + | 2020-05-02 00:00 | Butrans 15 MCG/HR | [facility] | | | Transdermal Patch Weekly | | + + + + | 2020-07-16 00:00 | Butrans 15 MCG/HR | [facility] | | | Transdermal Patch Weekly | | + + + + | 2020-09-26 00:00 | Butrans 15 MCG/HR | [facility] | | | Transdermal Patch Weekly | | + + + + | 2020-11-28 00:00 | Butrans 15 MCG/HR | [facility] | | | Transdermal Patch Weekly | | + + + + | 2021-01-08 00:00 | Butrans 15 MCG/HR | [facility] | | | Transdermal Patch Weekly | | + + + + | 2021-06-24 00:00 | Butrans 15 MCG/HR | [facility] | | | Transdermal Patch Weekly | | + + + + | 2021-09-23 00:00 | Butrans 15 MCG/HR | [facility] | | | Transdermal Patch Weekly | | + + + + | 2022-01-04 00:00 | Butrans 15 MCG/HR | [facility] | | | Transdermal Patch Weekly | | + + + + | 2022-01-05 00:00 | Butrans 15 MCG/HR | [facility] | | | Transdermal Patch Weekly | | + + + + | 2022-01-12 00:00 | Butrans 15 MCG/HR | [facility] | | | Transdermal Patch Weekly | | + + + + | 2022-05-18 00:00 | Butrans 15 MCG/HR | [facility] | | | Transdermal Patch Weekly | | + + + + | 2022-05-21 00:00 | BACLOFEN | [facility] | + + + + | 2022-06-08 00:00 | BACLOFEN | [facility] | + + + + | 2022-09-20 00:00 | BACLOFEN | [facility] | + + + + | 2022-09-29 00:00 | BACLOFEN | [facility] | + + + + | 2022-10-04 00:00 | BACLOFEN | [facility] | + + + + | 2022-11-12 00:00 | BACLOFEN | [facility] | + + + + | 2022-11-14 00:00 | BACLOFEN | [facility] | + + + + | 2022-12-27 00:00 | BACLOFEN | [facility] | + + + + | 2023-03-14 00:00 | BACLOFEN | [facility] | + + + + | 2023-05-09 00:00 | BACLOFEN | [facility] | + + + + | 2023-05-16 00:00 | BACLOFEN | [facility] | + + + + | 2022-05-21 00:00 | LORAZEPAM | [facility] | + + + + | 2022-06-08 00:00 | LORAZEPAM | [facility] | + + + + | 2022-09-20 00:00 | LORAZEPAM | [facility] | + + + + | 2022-09-29 00:00 | LORAZEPAM | [facility] | + + + + | 2022-10-04 00:00 | LORAZEPAM | [facility] | + + + + | 2022-11-12 00:00 | LORAZEPAM | [facility] | + + + + | 2022-11-14 00:00 | LORAZEPAM | [facility] | + + + + | 2022-12-27 00:00 | LORAZEPAM | [facility] | + + + + | 2023-03-14 00:00 | LORAZEPAM | [facility] | + + + + | 2023-05-09 00:00 | LORAZEPAM | [facility] | + + + + | 2023-05-16 00:00 | LORAZEPAM | [facility] | + + + + | 2022-05-21 00:00 | MINOCYCLINE HCL | [facility] | + + + + | 2022-06-08 00:00 | MINOCYCLINE HCL | [facility] | + + + + | 2022-09-20 00:00 | MINOCYCLINE HCL | [facility] | + + + + | 2022-09-29 00:00 | MINOCYCLINE HCL | [facility] | + + + + | 2022-10-04 00:00 | MINOCYCLINE HCL | [facility] | + + + + | 2022-11-12 00:00 | MINOCYCLINE HCL | [facility] | + + + + | 2022-11-14 00:00 | MINOCYCLINE HCL | [facility] | + + + + | 2022-12-27 00:00 | MINOCYCLINE HCL | [facility] | + + + + | 2023-03-14 00:00 | MINOCYCLINE HCL | [facility] | + + + + | 2023-05-09 00:00 | MINOCYCLINE HCL | [facility] | + + + + | 2023-05-16 00:00 | MINOCYCLINE HCL | [facility] | + + + + | 2022-05-21 00:00 | ONDANSETRON HCL | [facility] | + + + + | 2022-06-08 00:00 | ONDANSETRON HCL | [facility] | + + + + | 2022-09-20 00:00 | ONDANSETRON HCL | [facility] | + + + + | 2022-09-29 00:00 | ONDANSETRON HCL | [facility] | + + + + | 2022-10-04 00:00 | ONDANSETRON HCL | [facility] | + + + + | 2022-11-12 00:00 | ONDANSETRON HCL | [facility] | + + + + | 2022-11-14 00:00 | ONDANSETRON HCL | [facility] | + + + + | 2022-12-27 00:00 | ONDANSETRON HCL | [facility] | + + + + | 2023-03-14 00:00 | ONDANSETRON HCL | [facility] | + + + + | 2023-05-09 00:00 | ONDANSETRON HCL | [facility] | + + + + | 2023-05-16 00:00 | ONDANSETRON HCL | [facility] | + + + + | 2022-05-21 00:00 | LAMOTRIGINE | [facility] | + + + + | 2022-06-08 00:00 | LAMOTRIGINE | [facility] | + + + + | 2022-09-20 00:00 | LAMOTRIGINE | [facility] | + + + + | 2022-09-29 00:00 | LAMOTRIGINE | [facility] | + + + + | 2022-10-04 00:00 | LAMOTRIGINE | [facility] | + + + + | 2022-11-12 00:00 | LAMOTRIGINE | [facility] | + + + + | 2022-11-14 00:00 | LAMOTRIGINE | [facility] | + + + + | 2022-12-27 00:00 | LAMOTRIGINE | [facility] | + + + + | 2023-03-14 00:00 | LAMOTRIGINE | [facility] | + + + + | 2023-05-09 00:00 | LAMOTRIGINE | [facility] | + + + + | 2023-05-16 00:00 | LAMOTRIGINE | [facility] | + + + + | 2021-05-05 00:00 | ACETAMINOPHEN | [facility] | + + + + | 2021-05-05 00:00 | ACETAMINOPHEN | [facility] | + + + + | 2021-05-05 00:00 | ACETAMINOPHEN | [facility] | + + + + | 2021-05-05 00:00 | ACETAMINOPHEN | [facility] | + + + + | 2021-05-05 00:00 | ACETAMINOPHEN | [facility] | + + + + | 2021-05-05 00:00 | ACETAMINOPHEN | [facility] | + + + + | 2022-10-19 00:00 | 1 MG Dose 1.5 ML | [facility] | | | semaglutide 1.34 MG/ML Pen | | | | Injector [Ozempic] | | + + + + | 2019-07-13 00:00 | topiramate 25 MG Oral | [facility] | | | Tablet | | + + + + | 2022-10-19 00:00 | Ozempic (1 MG/DOSE) 2 | [facility] | | | MG/1.5ML Subcutaneous | | | | Solution Pen-injector | | + + + + | 2019-07-13 00:00 | DULoxetine HCl Paste | [facility] | | | | | + + + + | 2022-05-21 00:00 | CIPROFLOXACIN HCL | [facility] | + + + + | 2022-06-08 00:00 | CIPROFLOXACIN HCL | [facility] | + + + + | 2022-09-20 00:00 | CIPROFLOXACIN HCL | [facility] | + + + + | 2022-09-29 00:00 | CIPROFLOXACIN HCL | [facility] | + + + + | 2022-10-04 00:00 | CIPROFLOXACIN HCL | [facility] | + + + + | 2022-11-12 00:00 | CIPROFLOXACIN HCL | [facility] | + + + + | 2022-11-14 00:00 | CIPROFLOXACIN HCL | [facility] | + + + + | 2022-12-27 00:00 | CIPROFLOXACIN HCL | [facility] | + + + + | 2023-03-14 00:00 | CIPROFLOXACIN HCL | [facility] | + + + + | 2023-05-09 00:00 | CIPROFLOXACIN HCL | [facility] | + + + + | 2023-05-16 00:00 | CIPROFLOXACIN HCL | [facility] | + + + + | 2022-05-21 00:00 | ALUMINUM CHLORIDE | [facility] | + + + + | 2022-06-08 00:00 | ALUMINUM CHLORIDE | [facility] | + + + + | 2022-09-20 00:00 | ALUMINUM CHLORIDE | [facility] | + + + + | 2022-09-29 00:00 | ALUMINUM CHLORIDE | [facility] | + + + + | 2022-10-04 00:00 | ALUMINUM CHLORIDE | [facility] | + + + + | 2022-11-12 00:00 | ALUMINUM CHLORIDE | [facility] | + + + + | 2022-11-14 00:00 | ALUMINUM CHLORIDE | [facility] | + + + + | 2022-12-27 00:00 | ALUMINUM CHLORIDE | [facility] | + + + + | 2023-03-14 00:00 | ALUMINUM CHLORIDE | [facility] | + + + + | 2023-05-09 00:00 | ALUMINUM CHLORIDE | [facility] | + + + + | 2023-05-16 00:00 | ALUMINUM CHLORIDE | [facility] | + + + + | 2022-05-21 00:00 | LORAZEPAM | [facility] | + + + + | 2022-06-08 00:00 | LORAZEPAM | [facility] | + + + + | 2022-09-20 00:00 | LORAZEPAM | [facility] | + + + + | 2022-09-29 00:00 | LORAZEPAM | [facility] | + + + + | 2022-10-04 00:00 | LORAZEPAM | [facility] | + + + + | 2022-11-12 00:00 | LORAZEPAM | [facility] | + + + + | 2022-11-14 00:00 | LORAZEPAM | [facility] | + + + + | 2022-12-27 00:00 | LORAZEPAM | [facility] | + + + + | 2023-03-14 00:00 | LORAZEPAM | [facility] | + + + + | 2023-05-09 00:00 | LORAZEPAM | [facility] | + + + + | 2023-05-16 00:00 | LORAZEPAM | [facility] | + + + + | 2022-05-21 00:00 | METOCLOPRAMIDE HCL | [facility] | + + + + | 2022-06-08 00:00 | METOCLOPRAMIDE HCL | [facility] | + + + + | 2022-09-20 00:00 | METOCLOPRAMIDE HCL | [facility] | + + + + | 2022-09-29 00:00 | METOCLOPRAMIDE HCL | [facility] | + + + + | 2022-10-04 00:00 | METOCLOPRAMIDE HCL | [facility] | + + + + | 2022-11-12 00:00 | METOCLOPRAMIDE HCL | [facility] | + + + + | 2022-11-14 00:00 | METOCLOPRAMIDE HCL | [facility] | + + + + | 2022-12-27 00:00 | METOCLOPRAMIDE HCL | [facility] | + + + + | 2023-03-14 00:00 | METOCLOPRAMIDE HCL | [facility] | + + + + | 2023-05-09 00:00 | METOCLOPRAMIDE HCL | [facility] | + + + + | 2023-05-16 00:00 | METOCLOPRAMIDE HCL | [facility] | + + + + | 2022-05-21 00:00 | SUCRALFATE | [facility] | + + + + | 2022-06-08 00:00 | SUCRALFATE | [facility] | + + + + | 2022-09-20 00:00 | SUCRALFATE | [facility] | + + + + | 2022-09-29 00:00 | SUCRALFATE | [facility] | + + + + | 2022-10-04 00:00 | SUCRALFATE | [facility] | + + + + | 2022-11-12 00:00 | SUCRALFATE | [facility] | + + + + | 2022-11-14 00:00 | SUCRALFATE | [facility] | + + + + | 2022-12-27 00:00 | SUCRALFATE | [facility] | + + + + | 2023-03-14 00:00 | SUCRALFATE | [facility] | + + + + | 2023-05-09 00:00 | SUCRALFATE | [facility] | + + + + | 2023-05-16 00:00 | SUCRALFATE | [facility] | + + + + | 2022-09-20 00:00 | Semaglutide | [facility] | + + + + | 2022-09-29 00:00 | Semaglutide | [facility] | + + + + | 2022-10-04 00:00 | Semaglutide | [facility] | + + + + | 2022-11-12 00:00 | Semaglutide | [facility] | + + + + | 2022-11-14 00:00 | Semaglutide | [facility] | + + + + | 2022-12-27 00:00 | Semaglutide | [facility] | + + + + | 2023-03-14 00:00 | Semaglutide | [facility] | + + + + | 2023-05-09 00:00 | Semaglutide | [facility] | + + + + | 2023-05-16 00:00 | Semaglutide | [facility] | + + + + | 2022-05-21 00:00 | LAMOTRIGINE | [facility] | + + + + | 2022-06-08 00:00 | LAMOTRIGINE | [facility] | + + + + | 2022-09-20 00:00 | LAMOTRIGINE | [facility] | + + + + | 2022-09-29 00:00 | LAMOTRIGINE | [facility] | + + + + | 2022-10-04 00:00 | LAMOTRIGINE | [facility] | + + + + | 2022-11-12 00:00 | LAMOTRIGINE | [facility] | + + + + | 2022-11-14 00:00 | LAMOTRIGINE | [facility] | + + + + | 2022-12-27 00:00 | LAMOTRIGINE | [facility] | + + + + | 2023-03-14 00:00 | LAMOTRIGINE | [facility] | + + + + | 2023-05-09 00:00 | LAMOTRIGINE | [facility] | + + + + | 2023-05-16 00:00 | LAMOTRIGINE | [facility] | + + + + | 2019-07-13 00:00 | buPROPion HCl 100MG Oral | [facility] | | | Tablet | | + + + + | 2022-05-21 00:00 | ANTOINETTE ROOT | [facility] | + + + + | 2022-06-08 00:00 | ANTOINETTE ROOT | [facility] | + + + + | 2022-09-20 00:00 | ANTOINETTE ROOT | [facility] | + + + + | 2022-09-29 00:00 | ANTOINETTE ROOT | [facility] | + + + + | 2022-10-04 00:00 | ANTOINETTE ROOT | [facility] | + + + + | 2022-11-12 00:00 | ANTOINETTE ROOT | [facility] | + + + + | 2022-11-14 00:00 | ANTOINETTE ROOT | [facility] | + + + + | 2022-12-27 00:00 | ANTOINETTE ROOT | [facility] | + + + + | 2023-03-14 00:00 | ANTOINETTE ROOT | [facility] | + + + + | 2023-05-09 00:00 | ANTOINETTE ROOT | [facility] | + + + + | 2023-05-16 00:00 | ANTOINETTE ROOT | [facility] | + + + + | 2022-05-21 00:00 | FENTANYL (100 MCG/HR) | [facility] | + + + + | 2022-06-08 00:00 | FENTANYL (100 MCG/HR) | [facility] | + + + + | 2022-09-20 00:00 | FENTANYL (100 MCG/HR) | [facility] | + + + + | 2022-09-29 00:00 | FENTANYL (100 MCG/HR) | [facility] | + + + + | 2022-10-04 00:00 | FENTANYL (100 MCG/HR) | [facility] | + + + + | 2022-11-12 00:00 | FENTANYL (100 MCG/HR) | [facility] | + + + + | 2022-11-14 00:00 | FENTANYL (100 MCG/HR) | [facility] | + + + + | 2022-12-27 00:00 | FENTANYL (100 MCG/HR) | [facility] | + + + + | 2023-03-14 00:00 | FENTANYL (100 MCG/HR) | [facility] | + + + + | 2023-05-09 00:00 | FENTANYL (100 MCG/HR) | [facility] | + + + + | 2023-05-16 00:00 | FENTANYL (100 MCG/HR) | [facility] | + + + + | 2022-05-21 00:00 | PANTOPRAZOLE SODIUM | [facility] | + + + + | 2022-06-08 00:00 | PANTOPRAZOLE SODIUM | [facility] | + + + + | 2022-09-20 00:00 | PANTOPRAZOLE SODIUM | [facility] | + + + + | 2022-09-29 00:00 | PANTOPRAZOLE SODIUM | [facility] | + + + + | 2022-10-04 00:00 | PANTOPRAZOLE SODIUM | [facility] | + + + + | 2022-11-12 00:00 | PANTOPRAZOLE SODIUM | [facility] | + + + + | 2022-11-14 00:00 | PANTOPRAZOLE SODIUM | [facility] [facility] | + + + + | 2022-12-27 00:00 | PANTOPRAZOLE SODIUM | [facility] | + + + + | 2023-03-14 00:00 | PANTOPRAZOLE SODIUM | [facility] | + + + + | 2023-05-09 00:00 | PANTOPRAZOLE SODIUM | [facility] | + + + + | 2023-05-16 00:00 | PANTOPRAZOLE SODIUM | [facility] | + + + + | 2020-05-02 00:00 | oxyCODONE HCl 10 MG Oral | [facility] | | | Tablet | | + + + + | 2020-07-16 00:00 | oxyCODONE HCl 10 MG Oral | [facility] | | | Tablet | | + + + + | 2020-09-26 00:00 | oxyCODONE HCl 10 MG Oral | [facility] | | | Tablet | | + + + + | 2020-11-28 00:00 | oxyCODONE HCl 10 MG Oral | [facility] | | | Tablet | | + + + + | 2021-01-08 00:00 | oxyCODONE HCl 10 MG Oral | [facility] | | | Tablet | | + + + + | 2021-05-06 00:00 | oxyCODONE HCl 10 MG Oral | [facility] | | | Tablet | | + + + + | 2021-06-09 00:00 | oxyCODONE HCl 10 MG Oral | [facility] | | | Tablet | | + + + + | 2021-07-23 00:00 | oxyCODONE HCl 10 MG Oral | [facility] | | | Tablet | | + + + + | 2021-08-18 00:00 | oxyCODONE HCl 10 MG Oral | [facility] | | | Tablet | | + + + + | 2021-09-23 00:00 | oxyCODONE HCl 10 MG Oral | [facility] | | | Tablet | | + + + + | 2021-10-28 00:00 | oxyCODONE HCl 10 MG Oral | [facility] | | | Tablet | | + + + + | 2021-12-03 00:00 | oxyCODONE HCl 10 MG Oral | [facility] | | | Tablet | | + + + + | 2022-01-05 00:00 | oxyCODONE HCl 10 MG Oral | [facility] | | | Tablet | | + + + + | 2022-01-12 00:00 | oxyCODONE HCl 10 MG Oral | [facility] | | | Tablet | | + + + + | 2022-06-15 00:00 | oxyCODONE HCl 10 MG Oral | [facility] | | | Tablet | | + + + + | 2022-07-21 00:00 | oxyCODONE HCl 10 MG Oral | [facility] | | | Tablet | | + + + + | 2022-09-01 00:00 | oxyCODONE HCl 10 MG Oral | [facility] | | | Tablet | | + + + + | 2022-10-19 00:00 | oxyCODONE HCl 10 MG Oral | [facility] | | | Tablet | | + + + + | 2023-01-18 00:00 | oxyCODONE HCl 10 MG Oral | [facility] | | | Tablet | | + + + + | 2019-07-13 00:00 | oxyCODONE HCl 10MG Oral | [facility] | | | Tablet | | + + + + | 2019-11-02 00:00 | alprazolam 0.5 MG Oral | [facility] | | [facility] | | + + + + | 2022-05-21 00:00 | AMOXICILLIN | [facility] | + + + + | 2022-06-08 00:00 | AMOXICILLIN | [facility] | + + + + | 2022-09-20 00:00 | AMOXICILLIN | [facility] | + + + + | 2022-09-29 00:00 | AMOXICILLIN | [facility] | + + + + | 2022-10-04 00:00 | AMOXICILLIN | [facility] | + + + + | 2022-11-12 00:00 | AMOXICILLIN | [facility] | + + + + | 2022-11-14 00:00 | AMOXICILLIN | [facility] | + + + + | 2022-12-27 00:00 | AMOXICILLIN | [facility] | + + + + | 2023-03-14 00:00 | AMOXICILLIN | [facility] | + + + + | 2023-05-09 00:00 | AMOXICILLIN | [facility] | + + + + | 2023-05-16 00:00 | AMOXICILLIN | [facility] | + + + + | 2022-05-21 00:00 | CIPROFLOXACIN HCL | [facility] | + + + + | 2022-06-08 00:00 | CIPROFLOXACIN HCL | [facility] | + + + + | 2022-09-20 00:00 | CIPROFLOXACIN HCL | [facility] | + + + + | 2022-09-29 00:00 | CIPROFLOXACIN HCL | [facility] | + + + + | 2022-10-04 00:00 | CIPROFLOXACIN HCL | [facility] | + + + + | 2022-11-12 00:00 | CIPROFLOXACIN HCL | [facility] | + + + + | 2022-11-14 00:00 | CIPROFLOXACIN HCL | [facility] | + + + + | 2022-12-27 00:00 | CIPROFLOXACIN HCL | [facility] | + + + + | 2023-03-14 00:00 | CIPROFLOXACIN HCL | [facility] | + + + + | 2023-05-09 00:00 | CIPROFLOXACIN HCL | [facility] | + + + + | 2023-05-16 00:00 | CIPROFLOXACIN HCL | [facility] | + + + + | 2022-05-21 00:00 | FOLIC ACID | [facility] | + + + + | 2022-06-08 00:00 | FOLIC ACID | [facility] | + + + + | 2022-09-20 00:00 | FOLIC ACID | [facility] | + + + + | 2022-09-29 00:00 | FOLIC ACID | [facility] | + + + + | 2022-10-04 00:00 | FOLIC ACID | [facility] | + + + + | 2022-11-12 00:00 | FOLIC ACID | [facility] | + + + + | 2022-11-14 00:00 | FOLIC ACID | [facility] | + + + + | 2022-12-27 00:00 | FOLIC ACID | [facility] | + + + + | 2023-03-14 00:00 | FOLIC ACID | [facility] | + + + + | 2023-05-09 00:00 | FOLIC ACID | [facility] | + + + + | 2023-05-16 00:00 | FOLIC ACID | [facility] | + + + + | 2022-05-21 00:00 | GRANISETRON HCL | [facility] | + + + + | 2022-06-08 00:00 | GRANISETRON HCL | [facility] | + + + + | 2022-09-20 00:00 | GRANISETRON HCL | [facility] | + + + + | 2022-09-29 00:00 | GRANISETRON HCL | [facility] | + + + + | 2022-10-04 00:00 | GRANISETRON HCL | [facility] | + + + + | 2022-11-12 00:00 | GRANISETRON HCL | [facility] | + + + + | 2022-11-14 00:00 | GRANISETRON HCL | [facility] | + + + + | 2022-12-27 00:00 | GRANISETRON HCL | [facility] | + + + + | 2023-03-14 00:00 | GRANISETRON HCL | [facility] | + + + + | 2023-05-09 00:00 | GRANISETRON HCL | [facility] | + + + + | 2023-05-16 00:00 | GRANISETRON HCL | [facility] | + + + + | 2022-05-21 00:00 | IBUPROFEN | [facility] | + + + + | 2022-06-08 00:00 | IBUPROFEN | [facility] | + + + + | 2022-09-20 00:00 | IBUPROFEN | [facility] | + + + + | 2022-09-29 00:00 | IBUPROFEN | [facility] | + + + + | 2022-10-04 00:00 | IBUPROFEN | [facility] | + + + + | 2022-11-12 00:00 | IBUPROFEN | [facility] | + + + + | 2022-11-14 00:00 | IBUPROFEN | [facility] | + + + + | 2022-12-27 00:00 | IBUPROFEN | [facility] | + + + + | 2023-03-14 00:00 | IBUPROFEN | [facility] | + + + + | 2023-05-09 00:00 | IBUPROFEN | [facility] | + + + + | 2023-05-16 00:00 | IBUPROFEN | [facility] | + + + + | 2021-07-25 00:00 | LEVOFLOXACIN | [facility] | + + + + | 2021-07-25 00:00 | LEVOFLOXACIN | [facility] | + + + + | 2021-07-25 00:00 | LEVOFLOXACIN | [facility] | + + + + | 2021-07-25 00:00 | LEVOFLOXACIN | [facility] | + + + + | 2021-07-25 00:00 | LEVOFLOXACIN | [facility] | + + + + | 2021-07-25 00:00 | LEVOFLOXACIN | [facility] | + + + + | 2022-05-21 00:00 | METOCLOPRAMIDE HCL | [facility] | + + + + | 2022-06-08 00:00 | METOCLOPRAMIDE HCL | [facility] | + + + + | 2022-09-20 00:00 | METOCLOPRAMIDE HCL | [facility] | + + + + | 2022-09-29 00:00 | METOCLOPRAMIDE HCL | [facility] | + + + + | 2022-10-04 00:00 | METOCLOPRAMIDE HCL | [facility] | + + + + | 2022-11-12 00:00 | METOCLOPRAMIDE HCL | [facility] | + + + + | 2022-11-14 00:00 | METOCLOPRAMIDE HCL | [facility] | + + + + | 2022-12-27 00:00 | METOCLOPRAMIDE HCL | [facility] | + + + + | 2023-03-14 00:00 | METOCLOPRAMIDE HCL | [facility] | + + + + | 2023-05-09 00:00 | METOCLOPRAMIDE HCL | [facility] | + + + + | 2023-05-16 00:00 | METOCLOPRAMIDE HCL | [facility] | + + + + | 2022-09-20 00:00 | ONDANSETRON | [facility] | + + + + | 2022-09-29 00:00 | ONDANSETRON | [facility] | + + + + | 2022-05-21 00:00 | BELLADONNA ALKALOIDS/OPIUM | [facility] | | | | | + + + + | 2022-06-08 00:00 | BELLADONNA ALKALOIDS/OPIUM | [facility] | | | | | + + + + | 2022-09-20 00:00 | BELLADONNA ALKALOIDS/OPIUM | [facility] | | | | | + + + + | 2022-09-29 00:00 | BELLADONNA ALKALOIDS/OPIUM | [facility] | | | | | + + + + | 2022-10-04 00:00 | BELLADONNA ALKALOIDS/OPIUM | [facility] | | | | | + + + + | 2022-11-12 00:00 | BELLADONNA ALKALOIDS/OPIUM | [facility] | | | | | + + + + | 2022-11-14 00:00 | BELLADONNA ALKALOIDS/OPIUM | [facility] | | | | | + + + + | 2022-12-27 00:00 | BELLADONNA ALKALOIDS/OPIUM | [facility] | | | | | + + + + | 2023-03-14 00:00 | BELLADONNA ALKALOIDS/OPIUM | [facility] | | | | | + + + + | 2023-05-09 00:00 | BELLADONNA ALKALOIDS/OPIUM | [facility] | | | | | + + + + | 2023-05-16 00:00 | BELLADONNA ALKALOIDS/OPIUM | [facility] | | | | | + + + + | 2016-08-05 00:00 | SENNOSIDES | [facility] | + + + + | 2016-08-05 00:00 | SENNOSIDES | [facility] | + + + + | 2016-08-05 00:00 | SENNOSIDES | [facility] | + + + + | 2016-08-05 00:00 | SENNOSIDES | [facility] | + + + + | 2016-08-05 00:00 | SENNOSIDES | [facility] | + + + + | 2016-08-05 00:00 | SENNOSIDES | [facility] | + + + + | 2022-05-21 00:00 | CYANOCOBALAMIN (VITAMIN | [facility] | | | B-) | | + + + + | 2022-06-08 00:00 | CYANOCOBALAMIN (VITAMIN | [facility] | | | B-) | | + + + + | 2022-09-20 00:00 | CYANOCOBALAMIN (VITAMIN | [facility] | | | B-12) | | + + + + | 2022-09-29 00:00 | CYANOCOBALAMIN (VITAMIN | [facility] | | | B-12) | | + + + + | 2022-10-04 00:00 | CYANOCOBALAMIN (VITAMIN | [facility] | | | B-12) | | + + + + | 2022-11-12 00:00 | CYANOCOBALAMIN (VITAMIN | [facility] | | | B-12) | | + + + + | 2022-11-14 00:00 | CYANOCOBALAMIN (VITAMIN | [facility] | | | B-12) | | + + + + | 2022-12-27 00:00 | CYANOCOBALAMIN (VITAMIN | [facility] | | | B-12) | | + + + + | 2023-03-14 00:00 | CYANOCOBALAMIN (VITAMIN | [facility] | | | B-12) | | + + + + | 2023-05-09 00:00 | CYANOCOBALAMIN (VITAMIN | [facility] | | | B-12) | | + + + + | 2023-05-16 00:00 | CYANOCOBALAMIN (VITAMIN | [facility] | | | B-12) | | + + + + | 2022-05-21 00:00 | PANTOPRAZOLE SODIUM | [facility] | + + + + | 2022-06-08 00:00 | PANTOPRAZOLE SODIUM | [facility] | + + + + | 2022-09-20 00:00 | PANTOPRAZOLE SODIUM | [facility] | + + + + | 2022-09-29 00:00 | PANTOPRAZOLE SODIUM | [facility] | + + + + | 2022-10-04 00:00 | PANTOPRAZOLE SODIUM | [facility] | + + + + | 2022-11-12 00:00 | PANTOPRAZOLE SODIUM | [facility] | + + + + | 2022-11-14 00:00 | PANTOPRAZOLE SODIUM | [facility] | + + + + | 2022-12-27 00:00 | PANTOPRAZOLE SODIUM | [facility] | + + + + | 2023-03-14 00:00 | PANTOPRAZOLE SODIUM | [facility] | + + + + | 2023-05-09 00:00 | PANTOPRAZOLE SODIUM | [facility] | + + + + | 2023-05-16 00:00 | PANTOPRAZOLE SODIUM | [facility] | + + + + | 2022-05-21 00:00 | SUCRALFATE | [facility] | + + + + | 2022-06-08 00:00 | SUCRALFATE | [facility] | + + + + | 2022-09-20 00:00 | SUCRALFATE | [facility] | + + + + | 2022-09-29 00:00 | SUCRALFATE | [facility] | + + + + | 2022-10-04 00:00 | SUCRALFATE | [facility] | + + + + | 2022-11-12 00:00 | SUCRALFATE | [facility] | + + + + | 2022-11-14 00:00 | SUCRALFATE | [facility] | + + + + | 2022-12-27 00:00 | SUCRALFATE | [facility] | + + + + | 2023-03-14 00:00 | SUCRALFATE | [facility] | + + + + | 2023-05-09 00:00 | SUCRALFATE | [facility] | + + + + | 2023-05-16 00:00 | SUCRALFATE | [facility] | + + + + | 2023-05-16 00:00 | Atomoxetine HCl | [facility] | + + + + | 2022-05-21 00:00 | LACTULOSE | [facility] | + + + + | 2022-06-08 00:00 | LACTULOSE | [facility] | + + + + | 2022-09-20 00:00 | LACTULOSE | [facility] | + + + + | 2022-09-29 00:00 | LACTULOSE | [facility] | + + + + | 2022-10-04 00:00 | LACTULOSE | [facility] | + + + + | 2022-11-12 00:00 | LACTULOSE | [facility] | + + + + | 2022-11-14 00:00 | LACTULOSE | [facility] | + + + + | 2022-12-27 00:00 | LACTULOSE | [facility] | + + + + | 2023-03-14 00:00 | LACTULOSE | [facility] | + + + + | 2023-05-09 00:00 | LACTULOSE | [facility] | + + + + | 2023-05-16 00:00 | LACTULOSE | [facility] | + + + + | 2019-07-13 00:00 | Topiramate 25MG Oral | [facility] | | | Tablet | | + + + + | 2022-05-21 00:00 | NITROFURANTOIN MONOHYD | [facility] | | | MACROCR | | + + + + | 2022-06-08 00:00 | NITROFURANTOIN MONOHYD | [facility] | | | MACROCR | | + + + + | 2022-09-20 00:00 | NITROFURANTOIN MONOHYD | [facility] | | | MACROCR | | + + + + | 2022-09-29 00:00 | NITROFURANTOIN MONOHYD | [facility] | | | MACROCR | | + + + + | 2022-10-04 00:00 | NITROFURANTOIN MONOHYD | [facility] | | | MACROCR | | + + + + | 2022-11-12 00:00 | NITROFURANTOIN MONOHYD | [facility] | | | MACROCR | | + + + + | 2022-11-14 00:00 | NITROFURANTOIN MONOHYD | [facility] | | | MACROCR | | + + + + | 2022-12-27 00:00 | NITROFURANTOIN MONOHYD | [facility] | | | MACROCR | | + + + + | 2023-03-14 00:00 | NITROFURANTOIN MONOHYD | [facility] | | | MACROCR | | + + + + | 2023-05-09 00:00 | NITROFURANTOIN MONOHYD | [facility] | | | MACROCR | | + + + + | 2023-05-16 00:00 | NITROFURANTOIN MONOHYD | [facility] | | | MACROCR | | + + + + | 2022-05-21 00:00 | DULOXETINE HCL | [facility] | + + + + | 2022-06-08 00:00 | DULOXETINE HCL | [facility] | + + + + | 2022-09-20 00:00 | DULOXETINE HCL | [facility] | + + + + | 2022-09-29 00:00 | DULOXETINE HCL | [facility] | + + + + | 2022-10-04 00:00 | DULOXETINE HCL | [facility] | + + + + | 2022-11-12 00:00 | DULOXETINE HCL | [facility] | + + + + | 2022-11-14 00:00 | DULOXETINE HCL | [facility] | + + + + | 2022-12-27 00:00 | DULOXETINE HCL | [facility] | + + + + | 2023-03-14 00:00 | DULOXETINE HCL | [facility] | + + + + | 2023-05-09 00:00 | DULOXETINE HCL | [facility] | + + + + | 2023-05-16 00:00 | DULOXETINE HCL | [facility] | + + + + | 2022-05-21 00:00 | DULOXETINE HCL | [facility] | + + + + | 2022-06-08 00:00 | DULOXETINE HCL | [facility] | + + + + | 2022-09-20 00:00 | DULOXETINE HCL | [facility] | + + + + | 2022-09-29 00:00 | DULOXETINE HCL | [facility] | + + + + | 2022-10-04 00:00 | DULOXETINE HCL | [facility] | + + + + | 2022-11-12 00:00 | DULOXETINE HCL | [facility] | + + + + | 2022-11-14 00:00 | DULOXETINE HCL | [facility] | + + + + | 2022-12-27 00:00 | DULOXETINE HCL | [facility] | + + + + | 2023-03-14 00:00 | DULOXETINE HCL | [facility] | + + + + | 2023-05-09 00:00 | DULOXETINE HCL | [facility] | + + + + | 2023-05-16 00:00 | DULOXETINE HCL | [facility] | + + + + | 2017-09-27 00:00 | PREGABALIN | [facility] | + + + + | 2017-09-27 00:00 | PREGABALIN | [facility] | + + + + | 2017-09-27 00:00 | PREGABALIN | [facility] | + + + + | 2017-09-27 00:00 | PREGABALIN | [facility] | + + + + | 2017-09-27 00:00 | PREGABALIN | [facility] | + + + + | 2017-09-27 00:00 | PREGABALIN | [facility] | + + + + | 2017-09-27 00:00 | PREGABALIN | [facility] | + + + + | 2017-09-27 00:00 | PREGABALIN | [facility] | + + + + | 2017-09-27 00:00 | PREGABALIN | [facility] | + + + + | 2017-09-27 00:00 | PREGABALIN | [facility] | + + + + | 2017-09-27 00:00 | PREGABALIN | [facility] | + + + + | 2017-09-27 00:00 | PREGABALIN | [facility] | + + + + | 2022-05-21 00:00 | PREGABALIN | [facility] | + + + + | 2022-06-08 00:00 | PREGABALIN | [facility] | + + + + | 2022-09-20 00:00 | PREGABALIN | [facility] | + + + + | 2022-09-29 00:00 | PREGABALIN | [facility] | + + + + | 2022-10-04 00:00 | PREGABALIN | [facility] | + + + + | 2022-11-12 00:00 | PREGABALIN | [facility] | + + + + | 2022-11-14 00:00 | PREGABALIN | [facility] | + + + + | 2022-12-27 00:00 | PREGABALIN | [facility] | + + + + | 2023-03-14 00:00 | PREGABALIN | [facility] | + + + + | 2023-05-09 00:00 | PREGABALIN | [facility] | + + + + | 2023-05-16 00:00 | PREGABALIN | [facility] | + + + + | 2019-09-11 00:00 | Roff 5-325 MG Oral Tablet | [facility] | | | | | + + + + | 2022-05-21 00:00 | ALBUTEROL SULFATE | [facility] | + + + + | 2022-06-08 00:00 | ALBUTEROL SULFATE | [facility] | + + + + | 2022-09-20 00:00 | ALBUTEROL SULFATE | [facility] | + + + + | 2022-09-29 00:00 | ALBUTEROL SULFATE | [facility] | + + + + | 2022-10-04 00:00 | ALBUTEROL SULFATE | [facility] | + + + + | 2022-11-12 00:00 | ALBUTEROL SULFATE | [facility] | + + + + | 2022-11-14 00:00 | ALBUTEROL SULFATE | [facility] | + + + + | 2022-12-27 00:00 | ALBUTEROL SULFATE | [facility] | + + + + | 2023-03-14 00:00 | ALBUTEROL SULFATE | [facility] | + + + + | 2023-05-09 00:00 | ALBUTEROL SULFATE | [facility] | + + + + | 2023-05-16 00:00 | ALBUTEROL SULFATE | [facility] | + + + + | 2022-01-12 00:00 | Lovenox 120 MG/0.8ML | [facility] | | | Subcutaneous Solution | | + + + + | 2022-05-21 00:00 | LEVONORGESTREL | [facility] | + + + + | 2022-06-08 00:00 | LEVONORGESTREL | [facility] | + + + + | 2022-09-20 00:00 | LEVONORGESTREL | [facility] | + + + + | 2022-09-29 00:00 | LEVONORGESTREL | [facility] | + + + + | 2022-10-04 00:00 | LEVONORGESTREL | [facility] | + + + + | 2022-11-12 00:00 | LEVONORGESTREL | [facility] | + + + + | 2022-11-14 00:00 | LEVONORGESTREL | [facility] | + + + + | 2022-12-27 00:00 | LEVONORGESTREL | [facility] | + + + + | 2023-03-14 00:00 | LEVONORGESTREL | [facility] | + + + + | 2023-05-09 00:00 | LEVONORGESTREL | [facility] | + + + + | 2023-05-16 00:00 | LEVONORGESTREL | [facility] | + + + + | 2015-02-22 00:00 | AMOXICILLIN/POTASSIUM CLAV | [facility] | | | | | + + + + | 2015-02-22 00:00 | AMOXICILLIN/POTASSIUM CLAV | [facility] | | | | | + + + + | 2015-02-22 00:00 | AMOXICILLIN/POTASSIUM CLAV | [facility] | | | | | + + + + | 2015-02-22 00:00 | AMOXICILLIN/POTASSIUM CLAV | [facility] | | | | | + + + + | 2015-02-22 00:00 | AMOXICILLIN/POTASSIUM CLAV | [facility] | | | | | + + + + | 2015-02-22 00:00 | AMOXICILLIN/POTASSIUM CLAV | [facility] | | | | | + + + + | 2022-05-21 00:00 | CYCLOBENZAPRINE HCL | [facility] | + + + + | 2022-06-08 00:00 | CYCLOBENZAPRINE HCL | [facility] | + + + + | 2022-09-20 00:00 | CYCLOBENZAPRINE HCL | [facility] | + + + + | 2022-09-29 00:00 | CYCLOBENZAPRINE HCL | [facility] | + + + + | 2022-10-04 00:00 | CYCLOBENZAPRINE HCL | [facility] | + + + + | 2022-11-12 00:00 | CYCLOBENZAPRINE HCL | [facility] | + + + + | 2022-11-14 00:00 | CYCLOBENZAPRINE HCL | [facility] | + + + + | 2022-12-27 00:00 | CYCLOBENZAPRINE HCL | [facility] | + + + + | 2023-03-14 00:00 | CYCLOBENZAPRINE HCL | [facility] | + + + + | 2023-05-09 00:00 | CYCLOBENZAPRINE HCL | [facility] | + + + + | 2023-05-16 00:00 | CYCLOBENZAPRINE HCL | [facility] | + + + + | 2017-09-27 00:00 | CYCLOBENZAPRINE HCL | [facility] | + + + + | 2017-09-27 00:00 | CYCLOBENZAPRINE HCL | [facility] | + + + + | 2017-09-27 00:00 | CYCLOBENZAPRINE HCL | [facility] | + + + + | 2017-09-27 00:00 | CYCLOBENZAPRINE HCL | [facility] | + + + + | 2017-09-27 00:00 | CYCLOBENZAPRINE HCL | [facility] | + + + + | 2017-09-27 00:00 | CYCLOBENZAPRINE HCL | [facility] | + + + + | 2022-05-21 00:00 | CYCLOBENZAPRINE HCL | [facility] | + + + + | 2022-06-08 00:00 | CYCLOBENZAPRINE HCL | [facility] | + + + + | 2022-09-20 00:00 | CYCLOBENZAPRINE HCL | [facility] | + + + + | 2022-09-29 00:00 | CYCLOBENZAPRINE HCL | [facility] | + + + + | 2022-10-04 00:00 | CYCLOBENZAPRINE HCL | [facility] | + + + + | 2022-11-12 00:00 | CYCLOBENZAPRINE HCL | [facility] | + + + + | 2022-11-14 00:00 | CYCLOBENZAPRINE HCL | [facility] | + + + + | 2022-12-27 00:00 | CYCLOBENZAPRINE HCL | [facility] | + + + + | 2023-03-14 00:00 | CYCLOBENZAPRINE HCL | [facility] | + + + + | 2023-05-09 00:00 | CYCLOBENZAPRINE HCL | [facility] | + + + + | 2023-05-16 00:00 | CYCLOBENZAPRINE HCL | [facility] | + + + + | 2016-06-27 00:00 | KETOROLAC TROMETHAMINE | [facility] | + + + + | 2016-06-27 00:00 | KETOROLAC TROMETHAMINE | [facility] | + + + + | 2016-06-27 00:00 | KETOROLAC TROMETHAMINE | [facility] | + + + + | 2016-06-27 00:00 | KETOROLAC TROMETHAMINE | [facility] | + + + + | 2016-06-27 00:00 | KETOROLAC TROMETHAMINE | [facility] | + + + + | 2016-06-27 00:00 | KETOROLAC TROMETHAMINE | [facility] | + + + + | 2022-05-21 00:00 | KETOROLAC TROMETHAMINE | [facility] | + + + + | 2022-06-08 00:00 | KETOROLAC TROMETHAMINE | [facility] | + + + + | 2022-09-20 00:00 | KETOROLAC TROMETHAMINE | [facility] | + + + + | 2022-09-29 00:00 | KETOROLAC TROMETHAMINE | [facility] [facility] | + + + + | 2022-10-04 00:00 | KETOROLAC TROMETHAMINE | [facility] | + + + + | 2022-11-12 00:00 | KETOROLAC TROMETHAMINE | [facility] | + + + + | 2022-11-14 00:00 | KETOROLAC TROMETHAMINE | [facility] | + + + + | 2022-12-27 00:00 | KETOROLAC TROMETHAMINE | [facility] | + + + + | 2023-03-14 00:00 | KETOROLAC TROMETHAMINE | [facility] | + + + + | 2023-05-09 00:00 | KETOROLAC TROMETHAMINE | [facility] | + + + + | 2023-05-16 00:00 | KETOROLAC TROMETHAMINE | [facility] | + + + + | 2022-05-21 00:00 | IMIPRAMINE HCL | [facility] | + + + + | 2022-06-08 00:00 | IMIPRAMINE HCL | [facility] | + + + + | 2022-09-20 00:00 | IMIPRAMINE HCL | [facility] | + + + + | 2022-09-29 00:00 | IMIPRAMINE HCL | [facility] | + + + + | 2022-10-04 00:00 | IMIPRAMINE HCL | [facility] | + + + + | 2022-11-12 00:00 | IMIPRAMINE HCL | [facility] | + + + + | 2022-11-14 00:00 | IMIPRAMINE HCL | [facility] | + + + + | 2022-12-27 00:00 | IMIPRAMINE HCL | [facility] | + + + + | 2023-03-14 00:00 | IMIPRAMINE HCL | [facility] | + + + + | 2023-05-09 00:00 | IMIPRAMINE HCL | [facility] | + + + + | 2023-05-16 00:00 | IMIPRAMINE HCL | [facility] | + + + + | 2018-10-07 00:00 | | [facility] | | | SULFAMETHOXAZOLE/TRIMETHOPR | | | | IM DS | | + + + + | 2018-10-07 00:00 | | [facility] | | | SULFAMETHOXAZOLE/TRIMETHOPR | | | | IM DS | | + + + + | 2018-10-07 00:00 | | [facility] | | | SULFAMETHOXAZOLE/TRIMETHOPR | | | | IM DS | | + + + + | 2018-10-07 00:00 | | [facility] | | | SULFAMETHOXAZOLE/TRIMETHOPR | | | | IM DS | | + + + + | 2018-10-07 00:00 | | [facility] | | | SULFAMETHOXAZOLE/TRIMETHOPR | | | | IM DS | | + + + + | 2018-10-07 00:00 | | [facility] | | | SULFAMETHOXAZOLE/TRIMETHOPR | | | | IM DS | | + + + + | 2022-05-21 00:00 | Enoxaparin Sodium | [facility] | + + + + | 2022-06-08 00:00 | Enoxaparin Sodium | [facility] | + + + + | 2022-09-20 00:00 | Enoxaparin Sodium | [facility] | + + + + | 2022-09-29 00:00 | Enoxaparin Sodium | [facility] | + + + + | 2022-10-04 00:00 | Enoxaparin Sodium | [facility] | + + + + | 2022-11-12 00:00 | Enoxaparin Sodium | [facility] | + + + + | 2022-11-14 00:00 | Enoxaparin Sodium | [facility] | + + + + | 2022-12-27 00:00 | Enoxaparin Sodium | [facility] | + + + + | 2023-03-14 00:00 | Enoxaparin Sodium | [facility] | + + + + | 2023-05-09 00:00 | Enoxaparin Sodium | [facility] | + + + + | 2023-05-16 00:00 | Enoxaparin Sodium | [facility] | + + + + | 2022-05-21 00:00 | ENOXAPARIN SODIUM | [facility] | + + + + | 2022-06-08 00:00 | ENOXAPARIN SODIUM | [facility] | + + + + | 2022-09-20 00:00 | ENOXAPARIN SODIUM | [facility] | + + + + | 2022-09-29 00:00 | ENOXAPARIN SODIUM | [facility] | + + + + | 2022-10-04 00:00 | ENOXAPARIN SODIUM | [facility] | + + + + | 2022-11-12 00:00 | ENOXAPARIN SODIUM | [facility] | + + + + | 2022-11-14 00:00 | ENOXAPARIN SODIUM | [facility] | + + + + | 2022-12-27 00:00 | ENOXAPARIN SODIUM | [facility] | + + + + | 2023-03-14 00:00 | ENOXAPARIN SODIUM | [facility] | + + + + | 2023-05-09 00:00 | ENOXAPARIN SODIUM | [facility] | + + + + | 2023-05-16 00:00 | ENOXAPARIN SODIUM | [facility] | + + + + | 2022-01-12 00:00 | 0.8 ML enoxaparin sodium | [facility] | | | 150 MG/ML Prefilled Syringe | | | | [Lovenox] | | + + + + | 2022-05-21 00:00 | TRAZODONE HCL | [facility] | + + + + | 2022-06-08 00:00 | TRAZODONE HCL | [facility] | + + + + | 2022-09-20 00:00 | TRAZODONE HCL | [facility] | + + + + | 2022-09-29 00:00 | TRAZODONE HCL | [facility] | + + + + | 2022-10-04 00:00 | TRAZODONE HCL | [facility] | + + + + | 2022-11-12 00:00 | TRAZODONE HCL | [facility] | + + + + | 2022-11-14 00:00 | TRAZODONE HCL | [facility] | + + + + | 2022-12-27 00:00 | TRAZODONE HCL | [facility] | + + + + | 2023-03-14 00:00 | TRAZODONE HCL | [facility] | + + + + | 2023-05-09 00:00 | TRAZODONE HCL | [facility] | + + + + | 2023-05-16 00:00 | TRAZODONE HCL | [facility] | + + + + | 2022-05-21 00:00 | HYDROCODONE | [facility] | | | BIT/ACETAMINOPHEN | | + + + + | 2022-06-08 00:00 | HYDROCODONE | [facility] | | | BIT/ACETAMINOPHEN | | + + + + | 2022-09-20 00:00 | HYDROCODONE | [facility] | | | BIT/ACETAMINOPHEN | | + + + + | 2022-09-29 00:00 | HYDROCODONE | [facility] | | | BIT/ACETAMINOPHEN | | + + + + | 2022-10-04 00:00 | HYDROCODONE | [facility] | | | BIT/ACETAMINOPHEN | | + + + + | 2022-11-12 00:00 | HYDROCODONE | [facility] | | | BIT/ACETAMINOPHEN | | + + + + | 2022-11-14 00:00 | HYDROCODONE | [facility] | | | BIT/ACETAMINOPHEN | | + + + + | 2022-12-27 00:00 | HYDROCODONE | [facility] | | | BIT/ACETAMINOPHEN | | + + + + | 2023-03-14 00:00 | HYDROCODONE | [facility] | | | BIT/ACETAMINOPHEN | | + + + + | 2023-05-09 00:00 | HYDROCODONE | [facility] | | | BIT/ACETAMINOPHEN | | + + + + | 2023-05-16 00:00 | HYDROCODONE | [facility] | | | BIT/ACETAMINOPHEN | | + + + + | 2018-10-07 00:00 | HYDROCODONE/APAP | [facility] | | | (10-325MG) | | + + + + | 2018-10-07 00:00 | HYDROCODONE/APAP | [facility] | | | (10-325MG) | | + + + + | 2018-10-07 00:00 | HYDROCODONE/APAP | [facility] | | | (10-325MG) | | + + + + | 2018-10-07 00:00 | HYDROCODONE/APAP | [facility] | | | (10-325MG) | | + + + + | 2018-10-07 00:00 | HYDROCODONE/APAP | [facility] | | | (10-325MG) | | + + + + | 2018-10-07 00:00 | HYDROCODONE/APAP | [facility] | | | (10-325MG) | | + + + + | 2018-12-31 00:00 | HYDROCODONE/APAP | [facility] | | | (10-325MG) | | + + + + | 2018-12-31 00:00 | HYDROCODONE/APAP | [facility] | | | (10-325MG) | | + + + + | 2018-12-31 00:00 | HYDROCODONE/APAP | [facility] | | | (10-325MG) | | + + + + | 2018-12-31 00:00 | HYDROCODONE/APAP | [facility] | | | (10-325MG) | | + + + + | 2018-12-31 00:00 | HYDROCODONE/APAP | [facility] | | | (10-325MG) | | + + + + | 2018-12-31 00:00 | HYDROCODONE/APAP | [facility] | | | (10-325MG) | | + + + + | 2022-05-21 00:00 | HYDROCODONE/APAP | [facility] | | | (10-325MG) | | + + + + | 2022-06-08 00:00 | HYDROCODONE/APAP | [facility] | | | (10-325MG) | | + + + + | 2022-09-20 00:00 | HYDROCODONE/APAP | [facility] | | | (10-325MG) | | + + + + | 2022-09-29 00:00 | HYDROCODONE/APAP | [facility] | | | (10-325MG) | | + + + + | 2022-10-04 00:00 | HYDROCODONE/APAP | [facility] | | | (10-325MG) | | + + + + | 2022-11-12 00:00 | HYDROCODONE/APAP | [facility] | | | (10-325MG) | | + + + + | 2022-11-14 00:00 | HYDROCODONE/APAP | [facility] | | | (10-325MG) | | + + + + | 2022-12-27 00:00 | HYDROCODONE/APAP | [facility] | | | (10-325MG) | | + + + + | 2023-03-14 00:00 | HYDROCODONE/APAP | [facility] | | | (10-325MG) | | + + + + | 2023-05-09 00:00 | HYDROCODONE/APAP | [facility] | | | (10-325MG) | | + + + + | 2023-05-16 00:00 | HYDROCODONE/APAP | [facility] | | | (10-325MG) | | + + + + | 2022-05-21 00:00 | HYDROCODONE | [facility] | | | BIT/ACETAMINOPHEN | | + + + + | 2022-06-08 00:00 | HYDROCODONE | [facility] | | | BIT/ACETAMINOPHEN | | + + + + | 2022-09-20 00:00 | HYDROCODONE | [facility] | | | BIT/ACETAMINOPHEN | | + + + + | 2022-09-29 00:00 | HYDROCODONE | [facility] | | | BIT/ACETAMINOPHEN | | + + + + | 2022-10-04 00:00 | HYDROCODONE | [facility] | | | BIT/ACETAMINOPHEN | | + + + + | 2022-11-12 00:00 | HYDROCODONE | [facility] | | | BIT/ACETAMINOPHEN | | + + + + | 2022-11-14 00:00 | HYDROCODONE | [facility] | | | BIT/ACETAMINOPHEN | | + + + + | 2022-12-27 00:00 | HYDROCODONE | [facility] | | | BIT/ACETAMINOPHEN | | + + + + | 2023-03-14 00:00 | HYDROCODONE | [facility] | | | BIT/ACETAMINOPHEN | | + + + + | 2023-05-09 00:00 | HYDROCODONE | [facility] | | | BIT/ACETAMINOPHEN | | + + + + | 2023-05-16 00:00 | HYDROCODONE | [facility] | | | BIT/ACETAMINOPHEN | | + + + + | 2019-09-11 00:00 | acetaminophen 325 MG / | [facility] | | | hydrocodone bitartrate 5 MG | | | | Oral Tablet [Roff] | | + + + + | 2022-05-21 00:00 | ALBUTEROL SULFATE | [facility] | + + + + | 2022-06-08 00:00 | ALBUTEROL SULFATE | [facility] | + + + + | 2022-09-20 00:00 | ALBUTEROL SULFATE | [facility] | + + + + | 2022-09-29 00:00 | ALBUTEROL SULFATE | [facility] | + + + + | 2022-10-04 00:00 | ALBUTEROL SULFATE | [facility] | + + + + | 2022-11-12 00:00 | ALBUTEROL SULFATE | [facility] | + + + + | 2022-11-14 00:00 | ALBUTEROL SULFATE | [facility] | + + + + | 2022-12-27 00:00 | ALBUTEROL SULFATE | [facility] | + + + + | 2023-03-14 00:00 | ALBUTEROL SULFATE | [facility] | + + + + | 2023-05-09 00:00 | ALBUTEROL SULFATE | [facility] | + + + + | 2023-05-16 00:00 | ALBUTEROL SULFATE | [facility] | + + + + | 2017-01-05 00:00 | KETOROLAC TROMETHAMINE | [facility] | + + + + | 2017-01-05 00:00 | KETOROLAC TROMETHAMINE | [facility] | + + + + | 2017-01-05 00:00 | KETOROLAC TROMETHAMINE | [facility] | + + + + | 2017-01-05 00:00 | KETOROLAC TROMETHAMINE | [facility] | + + + + | 2017-01-05 00:00 | KETOROLAC TROMETHAMINE | [facility] | + + + + | 2017-01-05 00:00 | KETOROLAC TROMETHAMINE | [facility] | + + + + | 2022-05-21 00:00 | KETOROLAC TROMETHAMINE | [facility] | + + + + | 2022-06-08 00:00 | KETOROLAC TROMETHAMINE | [facility] | + + + + | 2022-09-20 00:00 | KETOROLAC TROMETHAMINE | [facility] | + + + + | 2022-09-29 00:00 | KETOROLAC TROMETHAMINE | [facility] | + + + + | 2022-10-04 00:00 | KETOROLAC TROMETHAMINE | [facility] | + + + + | 2022-11-12 00:00 | KETOROLAC TROMETHAMINE | [facility] | + + + + | 2022-11-14 00:00 | KETOROLAC TROMETHAMINE | [facility] | + + + + | 2022-12-27 00:00 | KETOROLAC TROMETHAMINE | [facility] | + + + + | 2023-03-14 00:00 | KETOROLAC TROMETHAMINE | [facility] | + + + + | 2023-05-09 00:00 | KETOROLAC TROMETHAMINE | [facility] | + + + + | 2023-05-16 00:00 | KETOROLAC TROMETHAMINE | [facility] | + + + + | 2016-06-27 00:00 | KETOROLAC TROMETHAMINE | [facility] | + + + + | 2016-06-27 00:00 | KETOROLAC TROMETHAMINE | [facility] | + + + + | 2016-06-27 00:00 | KETOROLAC TROMETHAMINE | [facility] | + + + + | 2016-06-27 00:00 | KETOROLAC TROMETHAMINE | [facility] | + + + + | 2016-06-27 00:00 | KETOROLAC TROMETHAMINE | [facility] | + + + + | 2016-06-27 00:00 | KETOROLAC TROMETHAMINE | [facility] | + + + + | 2022-05-21 00:00 | KETOROLAC TROMETHAMINE | [facility] | + + + + | 2022-06-08 00:00 | KETOROLAC TROMETHAMINE | [facility] | + + + + | 2022-09-20 00:00 | KETOROLAC TROMETHAMINE | [facility] | + + + + | 2022-09-29 00:00 | KETOROLAC TROMETHAMINE | [facility] | + + + + | 2022-10-04 00:00 | KETOROLAC TROMETHAMINE | [facility] | + + + + | 2022-11-12 00:00 | KETOROLAC TROMETHAMINE | [facility] | + + + + | 2022-11-14 00:00 | KETOROLAC TROMETHAMINE | [facility] | + + + + | 2022-12-27 00:00 | KETOROLAC TROMETHAMINE | [facility] | + + + + | 2023-03-14 00:00 | KETOROLAC TROMETHAMINE | [facility] | + + + + | 2023-05-09 00:00 | KETOROLAC TROMETHAMINE | [facility] | + + + + | 2023-05-16 00:00 | KETOROLAC TROMETHAMINE | [facility] | + + + + | 2022-05-21 00:00 | POLYETHYLENE GLYCOL 3350 | [facility] | + + + + | 2022-06-08 00:00 | POLYETHYLENE GLYCOL 3350 | [facility] | + + + + | 2022-09-20 00:00 | POLYETHYLENE GLYCOL 3350 | [facility] | + + + + | 2022-09-29 00:00 | POLYETHYLENE GLYCOL 3350 | [facility] | + + + + | 2022-10-04 00:00 | POLYETHYLENE GLYCOL 3350 | [facility] | + + + + | 2022-11-12 00:00 | POLYETHYLENE GLYCOL 3350 | [facility] | + + + + | 2022-11-14 00:00 | POLYETHYLENE GLYCOL 3350 | [facility] | + + + + | 2022-12-27 00:00 | POLYETHYLENE GLYCOL 3350 | [facility] | + + + + | 2023-03-14 00:00 | POLYETHYLENE GLYCOL 3350 | [facility] | + + + + | 2023-05-09 00:00 | POLYETHYLENE GLYCOL 3350 | [facility] | + + + + | 2023-05-16 00:00 | POLYETHYLENE GLYCOL 3350 | [facility] | + + + + | 2022-05-21 00:00 | POLYETHYLENE GLYCOL 3350 | [facility] | + + + + | 2022-06-08 00:00 | POLYETHYLENE GLYCOL 3350 | [facility] | + + + + | 2022-09-20 00:00 | POLYETHYLENE GLYCOL 3350 | [facility] | + + + + | 2022-09-29 00:00 | POLYETHYLENE GLYCOL 3350 | [facility] | + + + + | 2022-10-04 00:00 | POLYETHYLENE GLYCOL 3350 | [facility] | + + + + | 2022-11-12 00:00 | POLYETHYLENE GLYCOL 3350 | [facility] | + + + + | 2022-11-14 00:00 | POLYETHYLENE GLYCOL 3350 | [facility] | + + + + | 2022-12-27 00:00 | POLYETHYLENE GLYCOL 3350 | [facility] | + + + + | 2023-03-14 00:00 | POLYETHYLENE GLYCOL 3350 | [facility] | + + + + | 2023-05-09 00:00 | POLYETHYLENE GLYCOL 3350 | [facility] | + + + + | 2023-05-16 00:00 | POLYETHYLENE GLYCOL 3350 | [facility] | + + + + | 2022-05-21 00:00 | ONDANSETRON | [facility] | + + + + | 2022-06-08 00:00 | ONDANSETRON | [facility] | + + + + | 2022-09-20 00:00 | ONDANSETRON | [facility] | + + + + | 2022-09-29 00:00 | ONDANSETRON | [facility] | + + + + | 2022-10-04 00:00 | ONDANSETRON | [facility] | + + + + | 2022-11-12 00:00 | ONDANSETRON | [facility] | + + + + | 2022-11-14 00:00 | ONDANSETRON | [facility] | + + + + | 2022-12-27 00:00 | ONDANSETRON | [facility] | + + + + | 2023-03-14 00:00 | ONDANSETRON | [facility] | + + + + | 2023-05-09 00:00 | ONDANSETRON | [facility] | + + + + | 2023-05-16 00:00 | ONDANSETRON | [facility] | + + + + | 2022-05-21 00:00 | CLONIDINE HCL | [facility] | + + + + | 2022-06-08 00:00 | CLONIDINE HCL | [facility] | + + + + | 2022-09-20 00:00 | CLONIDINE HCL | [facility] | + + + + | 2022-09-29 00:00 | CLONIDINE HCL | [facility] | + + + + | 2022-10-04 00:00 | CLONIDINE HCL | [facility] | + + + + | 2022-11-12 00:00 | CLONIDINE HCL | [facility] | + + + + | 2022-11-14 00:00 | CLONIDINE HCL | [facility] | + + + + | 2022-12-27 00:00 | CLONIDINE HCL | [facility] | + + + + | 2023-03-14 00:00 | CLONIDINE HCL | [facility] | + + + + | 2023-05-09 00:00 | CLONIDINE HCL | [facility] | + + + + | 2023-05-16 00:00 | CLONIDINE HCL | [facility] | + + + + | 2022-06-08 00:00 | LIRAGLUTIDE | [facility] | + + + + | 2017-06-25 00:00 | HYDROmorphone HCL | [facility] | + + + + | 2017-06-25 00:00 | HYDROmorphone HCL | [facility] | + + + + | 2017-06-25 00:00 | HYDROmorphone HCL | [facility] | + + + + | 2017-06-25 00:00 | HYDROmorphone HCL | [facility] | + + + + | 2017-06-25 00:00 | HYDROmorphone HCL | [facility] | + + + + | 2017-06-25 00:00 | HYDROmorphone HCL | [facility] | + + + + | 2022-05-21 00:00 | HYDROmorphone HCL | [facility] | + + + + | 2022-06-08 00:00 | HYDROmorphone HCL | [facility] | + + + + | 2022-09-20 00:00 | HYDROmorphone HCL | [facility] | + + + + | 2022-09-29 00:00 | HYDROmorphone HCL | [facility] | + + + + | 2022-10-04 00:00 | HYDROmorphone HCL | [facility] | + + + + | 2022-11-12 00:00 | HYDROmorphone HCL | [facility] | + + + + | 2022-11-14 00:00 | HYDROmorphone HCL | [facility] | + + + + | 2022-12-27 00:00 | HYDROmorphone HCL | [facility] | + + + + | 2023-03-14 00:00 | HYDROmorphone HCL | [facility] | + + + + | 2023-05-09 00:00 | HYDROmorphone HCL | [facility] | + + + + | 2023-05-16 00:00 | HYDROmorphone HCL | [facility] | + + + + | 2019-08-08 00:00 | 168 HR buprenorphine 0.01 | [facility] | | | MG/HR Transdermal System | | | | [BuTrans] | | + + + + | 2019-11-02 00:00 | ALPRAZolam 0.5 MG Oral | [facility] | | | Tablet | | + + + + | 2022-05-21 00:00 | PEG 3350/NA | [facility] | | | SULF,BICARB,CL/KCL | | + + + + | 2022-06-08 00:00 | PEG 3350/NA | [facility] | | | SULF,BICARB,CL/KCL | | + + + + | 2022-09-20 00:00 | PEG 3350/NA | [facility] | | | SULF,BICARB,CL/KCL | | + + + + | 2022-09-29 00:00 | PEG 3350/NA | [facility] | | | SULF,BICARB,CL/KCL | | + + + + | 2022-10-04 00:00 | PEG 3350/NA | [facility] | | | SULF,BICARB,CL/KCL | | + + + + | 2022-11-12 00:00 | PEG 3350/NA | [facility] | | | SULF,BICARB,CL/KCL | | + + + + | 2022-11-14 00:00 | PEG 3350/NA | [facility] | | | SULF,BICARB,CL/KCL | | + + + + | 2022-12-27 00:00 | PEG 3350/NA | [facility] | | | SULF,BICARB,CL/KCL | | + + + + | 2023-03-14 00:00 | PEG 3350/NA | [facility] | | | SULF,BICARB,CL/KCL | | + + + + | 2023-05-09 00:00 | PEG 3350/NA | [facility] | | | SULF,BICARB,CL/KCL | | + + + + | 2023-05-16 00:00 | PEG 3350/NA | [facility] | | | SULF,BICARB,CL/KCL | | + + + + | 2022-05-21 00:00 | PROMETHAZINE HCL | [facility] | + + + + | 2022-06-08 00:00 | PROMETHAZINE HCL | [facility] | + + + + | 2022-09-20 00:00 | PROMETHAZINE HCL | [facility] | + + + + | 2022-09-29 00:00 | PROMETHAZINE HCL | [facility] | + + + + | 2022-10-04 00:00 | PROMETHAZINE HCL | [facility] | + + + + | 2022-11-12 00:00 | PROMETHAZINE HCL | [facility] | + + + + | 2022-11-14 00:00 | PROMETHAZINE HCL | [facility] | + + + + | 2022-12-27 00:00 | PROMETHAZINE HCL | [facility] | + + + + | 2023-03-14 00:00 | PROMETHAZINE HCL | [facility] | + + + + | 2023-05-09 00:00 | PROMETHAZINE HCL | [facility] | + + + + | 2023-05-16 00:00 | PROMETHAZINE HCL | [facility] | + + + + | 2022-05-09 00:00 | PROMETHAZINE HCL | [facility] | + + + + | 2022-05-21 00:00 | PROMETHAZINE HCL | [facility] | + + + + | 2022-06-08 00:00 | PROMETHAZINE HCL | [facility] | + + + + | 2022-09-20 00:00 | PROMETHAZINE HCL | [facility] | + + + + | 2022-09-29 00:00 | PROMETHAZINE HCL | [facility] | + + + + | 2022-10-04 00:00 | PROMETHAZINE HCL | [facility] | + + + + | 2022-11-12 00:00 | PROMETHAZINE HCL | [facility] | + + + + | 2022-11-14 00:00 | PROMETHAZINE HCL | [facility] | + + + + | 2022-12-27 00:00 | PROMETHAZINE HCL | [facility] | + + + + | 2023-03-14 00:00 | PROMETHAZINE HCL | [facility] | + + + + | 2023-05-09 00:00 | PROMETHAZINE HCL | [facility] | + + + + | 2023-05-16 00:00 | PROMETHAZINE HCL | [facility] | + + + + | 2022-05-21 00:00 | PROMETHAZINE HCL | [facility] | + + + + | 2022-06-08 00:00 | PROMETHAZINE HCL | [facility] | + + + + | 2022-09-20 00:00 | PROMETHAZINE HCL | [facility] | + + + + | 2022-09-29 00:00 | PROMETHAZINE HCL | [facility] | + + + + | 2022-10-04 00:00 | PROMETHAZINE HCL | [facility] | + + + + | 2022-11-12 00:00 | PROMETHAZINE HCL | [facility] | + + + + | 2022-11-14 00:00 | PROMETHAZINE HCL | [facility] | + + + + | 2022-12-27 00:00 | PROMETHAZINE HCL | [facility] | + + + + | 2023-03-14 00:00 | PROMETHAZINE HCL | [facility] | + + + + | 2023-05-09 00:00 | PROMETHAZINE HCL | [facility] | + + + + | 2023-05-16 00:00 | PROMETHAZINE HCL | [facility] | + + + + | 2017-09-27 00:00 | PROMETHAZINE HCL | [facility] | + + + + | 2017-09-27 00:00 | PROMETHAZINE HCL | [facility] | + + + + | 2017-09-27 00:00 | PROMETHAZINE HCL | [facility] | + + + + | 2017-09-27 00:00 | PROMETHAZINE HCL | [facility] | + + + + | 2017-09-27 00:00 | PROMETHAZINE HCL | [facility] | + + + + | 2017-09-27 00:00 | PROMETHAZINE HCL | [facility] | + + + + | 2020-07-16 00:00 | 1 ML promethazine | [facility] | | | hydrochloride 25 MG/ML | | | | Injection | | + + + + | 2019-08-16 00:00 | PROMETHAZINE HCL | [facility] | + + + + | 2019-08-16 00:00 | PROMETHAZINE HCL | [facility] | + + + + | 2019-08-16 00:00 | PROMETHAZINE HCL | [facility] | + + + + | 2019-08-16 00:00 | PROMETHAZINE HCL | [facility] | + + + + | 2019-08-16 00:00 | PROMETHAZINE HCL | [facility] | + + + + | 2019-08-16 00:00 | PROMETHAZINE HCL | [facility] | + + + + | 2022-05-21 00:00 | PROMETHAZINE HCL | [facility] | + + + + | 2022-06-08 00:00 | PROMETHAZINE HCL | [facility] | + + + + | 2022-09-20 00:00 | PROMETHAZINE HCL | [facility] | + + + + | 2022-09-29 00:00 | PROMETHAZINE HCL | [facility] | + + + + | 2022-10-04 00:00 | PROMETHAZINE HCL | [facility] | + + + + | 2022-11-12 00:00 | PROMETHAZINE HCL | [facility] | + + + + | 2022-11-14 00:00 | PROMETHAZINE HCL | [facility] | + + + + | 2022-12-27 00:00 | PROMETHAZINE HCL | [facility] | + + + + | 2023-03-14 00:00 | PROMETHAZINE HCL | [facility] | + + + + | 2023-05-09 00:00 | PROMETHAZINE HCL | [facility] | + + + + | 2023-05-16 00:00 | PROMETHAZINE HCL | [facility] | + + + + | 2016-06-27 00:00 | PROMETHAZINE HCL | [facility] | + + + + | 2016-06-27 00:00 | PROMETHAZINE HCL | [facility] | + + + + | 2016-06-27 00:00 | PROMETHAZINE HCL | [facility] | + + + + | 2016-06-27 00:00 | PROMETHAZINE HCL | [facility] | + + + + | 2016-06-27 00:00 | PROMETHAZINE HCL | [facility] | + + + + | 2016-06-27 00:00 | PROMETHAZINE HCL | [facility] | + + + + | 2022-05-21 00:00 | BUPROPION HCL | [facility] | + + + + | 2022-06-08 00:00 | BUPROPION HCL | [facility] | + + + + | 2022-09-20 00:00 | BUPROPION HCL | [facility] | + + + + | 2022-09-29 00:00 | BUPROPION HCL | [facility] | + + + + | 2022-10-04 00:00 | BUPROPION HCL | [facility] | + + + + | 2022-11-12 00:00 | BUPROPION HCL | [facility] | + + + + | 2022-11-14 00:00 | BUPROPION HCL | [facility] | + + + + | 2022-12-27 00:00 | BUPROPION HCL | [facility] | + + + + | 2023-03-14 00:00 | BUPROPION HCL | [facility] | + + + + | 2023-05-09 00:00 | BUPROPION HCL | [facility] | + + + + | 2023-05-16 00:00 | BUPROPION HCL | [facility] | + + + + | 2022-05-21 00:00 | BUPROPION HCL | [facility] | + + + + | 2022-06-08 00:00 | BUPROPION HCL | [facility] | + + + + | 2022-09-20 00:00 | BUPROPION HCL | [facility] | + + + + | 2022-09-29 00:00 | BUPROPION HCL | [facility] | + + + + | 2022-10-04 00:00 | BUPROPION HCL | [facility] | + + + + | 2022-11-12 00:00 | BUPROPION HCL | [facility] | + + + + | 2022-11-14 00:00 | BUPROPION HCL | [facility] | + + + + | 2022-12-27 00:00 | BUPROPION HCL | [facility] | + + + + | 2023-03-14 00:00 | BUPROPION HCL | [facility] | + + + + | 2023-05-09 00:00 | BUPROPION HCL | [facility] | + + + + | 2023-05-16 00:00 | BUPROPION HCL | [facility] | + + + + | 2019-07-13 00:00 | bupropion hydrochloride | [facility] | | | 100 MG Oral Tablet | | + + + + | 2021-07-25 00:00 | hydrOXYzine PAMOATE | [facility] | + + + + | 2021-07-25 00:00 | hydrOXYzine PAMOATE | [facility] | + + + + | 2021-07-25 00:00 | hydrOXYzine PAMOATE | [facility] | + + + + | 2021-07-25 00:00 | hydrOXYzine PAMOATE | [facility] | + + + + | 2021-07-25 00:00 | hydrOXYzine PAMOATE | [facility] | + + + + | 2021-07-25 00:00 | hydrOXYzine PAMOATE | [facility] | + + + + | 2022-05-21 00:00 | HYDROXYZINE PAMOATE | [facility] | + + + + | 2022-06-08 00:00 | HYDROXYZINE PAMOATE | [facility] | + + + + | 2022-09-20 00:00 | HYDROXYZINE PAMOATE | [facility] | + + + + | 2022-09-29 00:00 | HYDROXYZINE PAMOATE | [facility] | + + + + | 2022-10-04 00:00 | HYDROXYZINE PAMOATE | [facility] | + + + + | 2022-11-12 00:00 | HYDROXYZINE PAMOATE | [facility] | + + + + | 2022-11-14 00:00 | HYDROXYZINE PAMOATE | [facility] | + + + + | 2022-12-27 00:00 | HYDROXYZINE PAMOATE | [facility] | + + + + | 2023-03-14 00:00 | HYDROXYZINE PAMOATE | [facility] | + + + + | 2023-05-09 00:00 | HYDROXYZINE PAMOATE | [facility] | + + + + | 2023-05-16 00:00 | HYDROXYZINE PAMOATE | [facility] | + + + + | 2022-05-21 00:00 | HYDROXYZINE HCL | [facility] | + + + + | 2022-06-08 00:00 | HYDROXYZINE HCL | [facility] | + + + + | 2022-09-20 00:00 | HYDROXYZINE HCL | [facility] | + + + + | 2022-09-29 00:00 | HYDROXYZINE HCL | [facility] | + + + + | 2022-10-04 00:00 | HYDROXYZINE HCL | [facility] | + + + + | 2022-11-12 00:00 | HYDROXYZINE HCL | [facility] | + + + + | 2022-11-14 00:00 | HYDROXYZINE HCL | [facility] | + + + + | 2022-12-27 00:00 | HYDROXYZINE HCL | [facility] | + + + + | 2023-03-14 00:00 | HYDROXYZINE HCL | [facility] | + + + + | 2023-05-09 00:00 | HYDROXYZINE HCL | [facility] | + + + + | 2023-05-16 00:00 | HYDROXYZINE HCL | [facility] | + + + + | 2022-05-21 00:00 | MEMANTINE HCL | [facility] | + + + + | 2022-06-08 00:00 | MEMANTINE HCL | [facility] | + + + + | 2022-09-20 00:00 | MEMANTINE HCL | [facility] | + + + + | 2022-09-29 00:00 | MEMANTINE HCL | [facility] | + + + + | 2022-10-04 00:00 | MEMANTINE HCL | [facility] | + + + + | 2022-11-12 00:00 | MEMANTINE HCL | [facility] | + + + + | 2022-11-14 00:00 | MEMANTINE HCL | [facility] | + + + + | 2022-12-27 00:00 | MEMANTINE HCL | [facility] | + + + + | 2023-03-14 00:00 | MEMANTINE HCL | [facility] | + + + + | 2023-05-09 00:00 | MEMANTINE HCL | [facility] | + + + + | 2023-05-16 00:00 | MEMANTINE HCL | [facility] | + + + + | 2022-05-21 00:00 | MEMANTINE HCL | [facility] | + + + + | 2022-06-08 00:00 | MEMANTINE HCL | [facility] | + + + + | 2022-09-20 00:00 | MEMANTINE HCL | [facility] | + + + + | 2022-09-29 00:00 | MEMANTINE HCL | [facility] | + + + + | 2022-10-04 00:00 | MEMANTINE HCL | [facility] | + + + + | 2022-11-12 00:00 | MEMANTINE HCL | [facility] | + + + + | 2022-11-14 00:00 | MEMANTINE HCL | [facility] | + + + + | 2022-12-27 00:00 | MEMANTINE HCL | [facility] | + + + + | 2023-03-14 00:00 | MEMANTINE HCL | [facility] | + + + + | 2023-05-09 00:00 | MEMANTINE HCL | [facility] | + + + + | 2023-05-16 00:00 | MEMANTINE HCL | [facility] | + + + + | 2019-07-13 00:00 | Mirena 52MCG/24HR | [facility] | | | Intrauterine Intrauterine | | | | device | | + + + + | 2019-10-03 00:00 | OxyCODONE (IR) 10 mg Oral | [facility] | | | Tablet | | + + + + | 2019-11-02 00:00 | OxyCODONE (IR) 10 mg Oral | [facility] | | | Tablet | | + + + + | 2020-01-22 00:00 | OxyCODONE (IR) 10 mg Oral | [facility] | | | Tablet | | + + + + Problems + + + + | date | description | facility | + + + + | (no date) | Dizziness and giddiness | [facility] | | | | [place] | + + + + | (no date) | Syncope and collapse | [facility] | | | | [place] | + + + + | 2015-02-22 00:00 | Dog bite | [facility] | + + + + | 2015-02-22 00:00 | Dog bite | [facility] | + + + + | 2015-02-22 00:00 | Dog bite | [facility] | + + + + | 2015-02-22 00:00 | Dog bite | [facility] | + + + + | 2015-02-22 00:00 | Dog bite | [facility] | + + + + | 2015-02-22 00:00 | Dog bite | [facility] | + + + + | 2015-10-10 00:00 | Nausea and vomiting | [facility] | + + + + | 2015-10-10 00:00 | Nausea and vomiting | [facility] | + + + + | 2015-10-10 00:00 | Nausea and vomiting | [facility] | + + + + | 2015-10-10 00:00 | Nausea and vomiting | [facility] | + + + + | 2015-10-10 00:00 | Nausea and vomiting | [facility] | + + + + | 2015-10-10 00:00 | Nausea and vomiting | [facility] | + + + + | 2015-10-15 00:00 | Gastritis | [facility] | + + + + | 2015-10-15 00:00 | Gastritis | [facility] | + + + + | 2015-10-15 00:00 | Gastritis | [facility] | + + + + | 2015-10-15 00:00 | Gastritis | [facility] | + + + + | 2015-10-15 00:00 | Gastritis | [facility] | + + + + | 2015-10-15 00:00 | Gastritis | [facility] | + + + + | 2015-10-17 00:00 | Complex regional pain | [facility] | | | syndrome of left lower | | | | extremity | | + + + + | 2015-10-17 00:00 | Complex regional pain | [facility] | | | syndrome of left lower | | | | extremity | | + + + + | 2015-10-17 00:00 | Complex regional pain | [facility] | | | syndrome of left lower | | | | extremity | | + + + + | 2015-10-17 00:00 | Complex regional pain | [facility] | | | syndrome of left lower | | | | extremity | | + + + + | 2015-10-17 00:00 | Complex regional pain | [facility] | | | syndrome of left lower | | | | extremity | | + + + + | 2015-10-17 00:00 | Complex regional pain | [facility] | | | syndrome of left lower | | | | extremity | | + + + + | 2015-10-17 00:00 | Nondiabetic gastroparesis | [facility] | + + + + | 2015-10-17 00:00 | Nondiabetic gastroparesis | [facility] | + + + + | 2015-10-17 00:00 | Nondiabetic gastroparesis | [facility] | + + + + | 2015-10-17 00:00 | Nondiabetic gastroparesis | [facility] | + + + + | 2015-10-17 00:00 | Nondiabetic gastroparesis | [facility] | + + + + | 2015-10-17 00:00 | Nondiabetic gastroparesis | [facility] | + + + + | 2016-04-17 00:00 | Gastroparesis | [facility] | + + + + | 2016-04-17 00:00 | Gastroparesis | [facility] | + + + + | 2016-04-17 00:00 | Gastroparesis | [facility] | + + + + | 2016-04-17 00:00 | Gastroparesis | [facility] | + + + + | 2016-04-17 00:00 | Gastroparesis | [facility] | + + + + | 2016-04-17 00:00 | Gastroparesis | [facility] | + + + + | 2016-10-20 00:00 | Asthma | [facility] | + + + + | 2016-10-20 00:00 | Asthma | [facility] | + + + + | 2016-10-20 00:00 | Asthma | [facility] | + + + + | 2016-10-20 00:00 | Asthma | [facility] | + + + + | 2016-10-20 00:00 | Asthma | [facility] | + + + + | 2016-10-20 00:00 | Asthma | [facility] | + + + + | 2016-10-20 00:00 | 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[facility] | + + + + | 2016-10-20 00:00 | 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[facility] | + + + + | 2016-10-20 00:00 | 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[facility] | + + + + | 2016-10-20 00:00 | 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[facility] | + + + + | 2016-10-20 00:00 | 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[facility] | + + + + | 2016-10-20 00:00 | 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[facility] | + + + + | 2016-10-20 00:00 | Abdominal pain | [facility] | + + + + | 2016-10-20 00:00 | Abdominal pain | [facility] | + + + + | 2016-10-20 00:00 | Abdominal pain | [facility] | + + + + | 2016-10-20 00:00 | Abdominal pain | [facility] | + + + + | 2016-10-20 00:00 | Abdominal pain | [facility] | + + + + | 2016-10-20 00:00 | Abdominal pain | [facility] | + + + + | 2016-10-20 00:00 | Cyclic vomiting syndrome | [facility] | + + + + | 2016-10-20 00:00 | Cyclic vomiting syndrome | [facility] | + + + + | 2016-10-20 00:00 | Cyclic vomiting syndrome | [facility] | + + + + | 2016-10-20 00:00 | Cyclic vomiting syndrome | [facility] | + + + + | 2016-10-20 00:00 | Cyclic vomiting syndrome | [facility] | + + + + | 2016-10-20 00:00 | Cyclic vomiting syndrome | [facility] | + + + + | 2016-10-20 00:00 | Persistent vomiting | [facility] | + + + + | 2016-10-20 00:00 | Persistent vomiting | [facility] | + + + + | 2016-10-20 00:00 | Persistent vomiting | [facility] | + + + + | 2016-10-20 00:00 | Persistent vomiting | [facility] | + + + + | 2016-10-20 00:00 | Persistent vomiting | [facility] | + + + + | 2016-10-20 00:00 | Persistent vomiting | [facility] | + + + + | 2016-10-24 00:00 | Abdominal pain with | [facility] | | | vomiting | | + + + + | 2016-10-24 00:00 | Abdominal pain with | [facility] | | | vomiting | | + + + + | 2016-10-24 00:00 | Abdominal pain with | [facility] | | | vomiting | | + + + + | 2016-10-24 00:00 | Abdominal pain with | [facility] | | | vomiting | | + + + + | 2016-10-24 00:00 | Abdominal pain with | [facility] | | | vomiting | | + + + + | 2016-10-24 00:00 | Abdominal pain with | [facility] | | | vomiting | | + + + + | 2016-12-02 00:00 | Upper respiratory tract | [facility] | | | infection | | + + + + | 2016-12-02 00:00 | Upper respiratory tract | [facility] | | | infection | | + + + + | 2016-12-02 00:00 | Upper respiratory tract | [facility] | | | infection | | + + + + | 2016-12-02 00:00 | Upper respiratory tract | [facility] | | | infection | | + + + + | 2016-12-02 00:00 | Upper respiratory tract | [facility] | | | infection | | + + + + | 2016-12-02 00:00 | Upper respiratory tract | [facility] | | | infection | | + + + + | 2017-01-05 00:00 | Abdominal pain | [facility] | + + + + | 2017-01-05 00:00 | Abdominal pain | [facility] | + + + + | 2017-01-05 00:00 | Abdominal pain | [facility] | + + + + | 2017-01-05 00:00 | Abdominal pain | [facility] | + + + + | 2017-01-05 00:00 | Abdominal pain | [facility] | + + + + | 2017-01-05 00:00 | Abdominal pain | [facility] | + + + + | 2017-03-18 00:00 | Chronic abdominal pain | [facility] | + + + + | 2017-03-18 00:00 | Chronic abdominal pain | [facility] | + + + + | 2017-03-18 00:00 | Chronic abdominal pain | [facility] | + + + + | 2017-03-18 00:00 | Chronic abdominal pain | [facility] | + + + + | 2017-03-18 00:00 | Chronic abdominal pain | [facility] | + + + + | 2017-03-18 00:00 | Chronic abdominal pain | [facility] | + + + + | 2017-04-08 00:00 | Intractable vomiting | [facility] | + + + + | 2017-04-08 00:00 | Intractable vomiting | [facility] | + + + + | 2017-04-08 00:00 | Intractable vomiting | [facility] | + + + + | 2017-04-08 00:00 | Intractable vomiting | [facility] | + + + + | 2017-04-08 00:00 | Intractable vomiting | [facility] | + + + + | 2017-04-08 00:00 | Intractable vomiting | [facility] | + + + + | 2017-04-08 00:00 | Intractable pain | [facility] | + + + + | 2017-04-08 00:00 | Intractable pain | [facility] | + + + + | 2017-04-08 00:00 | Intractable pain | [facility] | + + + + | 2017-04-08 00:00 | Intractable pain | [facility] | + + + + | 2017-04-08 00:00 | Intractable pain | [facility] | + + + + | 2017-04-08 00:00 | Intractable pain | [facility] | + + + + | 2017-04-20 00:00 | Complex regional pain | [facility] | | | syndrome | | + + + + | 2017-04-20 00:00 | Complex regional pain | [facility] | | | syndrome | | + + + + | 2017-04-20 00:00 | Complex regional pain | [facility] | | | syndrome | | + + + + | 2017-04-20 00:00 | Complex regional pain | [facility] | | | syndrome | | + + + + | 2017-04-20 00:00 | Complex regional pain | [facility] | | | syndrome | | + + + + | 2017-04-20 00:00 | Complex regional pain | [facility] | | | syndrome | | + + + + | 2017-04-20 00:00 | Slow transit constipation | [facility] | + + + + | 2017-04-20 00:00 | Slow transit constipation | [facility] | + + + + | 2017-04-20 00:00 | Slow transit constipation | [facility] | + + + + | 2017-04-20 00:00 | Slow transit constipation | [facility] | + + + + | 2017-04-20 00:00 | Slow transit constipation | [facility] | + + + + | 2017-04-20 00:00 | Slow transit constipation | [facility] | + + + + | 2017-04-20 00:00 | Right upper quadrant | [facility] | | | abdominal pain | | + + + + | 2017-04-20 00:00 | Right upper quadrant | [facility] | | | abdominal pain | | + + + + | 2017-04-20 00:00 | Right upper quadrant | [facility] | | | abdominal pain | | + + + + | 2017-04-20 00:00 | Right upper quadrant | [facility] | | | abdominal pain | | + + + + | 2017-04-20 00:00 | Right upper quadrant | [facility] | | | abdominal pain | | + + + + | 2017-04-20 00:00 | Right upper quadrant | [facility] | | | abdominal pain | | + + + + | 2017-04-20 00:00 | Cyclic vomiting syndrome | [facility] | + + + + | 2017-04-20 00:00 | Cyclic vomiting syndrome | [facility] | + + + + | 2017-04-20 00:00 | Cyclic vomiting syndrome | [facility] | + + + + | 2017-04-20 00:00 | Cyclic vomiting syndrome | [facility] | + + + + | 2017-04-20 00:00 | Cyclic vomiting syndrome | [facility] | + + + + | 2017-04-20 00:00 | Cyclic vomiting syndrome | [facility] | + + + + | 2018-02-04 00:00 | Patient left without being | [facility] | | | seen | | + + + + | 2018-02-04 00:00 | Patient left without being | [facility] | | | seen | | + + + + | 2018-02-04 00:00 | Patient left without being | [facility] | | | seen | | + + + + | 2018-02-04 00:00 | Patient left without being | [facility] | | | seen | | + + + + | 2018-02-04 00:00 | Patient left without being | [facility] | | | seen | | + + + + | 2018-02-04 00:00 | Patient left without being | [facility] | | | seen | | + + + + | 2018-02-13 00:00 | Chronic interstitial | [facility] | | | cystitis | | + + + + | 2018-02-13 00:00 | Chronic interstitial | [facility] | | | cystitis | | + + + + | 2018-02-13 00:00 | Chronic interstitial | [facility] | | | cystitis | | + + + + | 2018-02-13 00:00 | Chronic interstitial | [facility] | | | cystitis | | + + + + | 2018-02-13 00:00 | Chronic interstitial | [facility] | | | cystitis | | + + + + | 2018-02-13 00:00 | Chronic interstitial | [facility] | | | cystitis | | + + + + | 2018-10-07 00:00 | Local infection of wound | [facility] | + + + + | 2018-10-07 00:00 | Local infection of wound | [facility] | + + + + | 2018-10-07 00:00 | Local infection of wound | [facility] | + + + + | 2018-10-07 00:00 | Local infection of wound | [facility] | + + + + | 2018-10-07 00:00 | Local infection of wound | [facility] | + + + + | 2018-10-07 00:00 | Local infection of wound | [facility] | + + + + | 2018-10-08 00:00 | Encounter for wound | [facility] | | | re-check | | + + + + | 2018-10-08 00:00 | Encounter for wound | [facility] | | | re-check | | + + + + | 2018-10-08 00:00 | Encounter for wound | [facility] | | | re-check | | + + + + | 2018-10-08 00:00 | Encounter for wound | [facility] | | | re-check | | + + + + | 2018-10-08 00:00 | Encounter for wound | [facility] | | | re-check | | + + + + | 2018-10-08 00:00 | Encounter for wound | [facility] | | | re-check | | + + + + | 2018-10-22 00:00 | Recurrent abdominal pain | [facility] | + + + + | 2018-10-22 00:00 | Recurrent abdominal pain | [facility] | + + + + | 2018-10-22 00:00 | Recurrent abdominal pain | [facility] | + + + + | 2018-10-22 00:00 | Recurrent abdominal pain | [facility] | + + + + | 2018-10-22 00:00 | Recurrent abdominal pain | [facility] | + + + + | 2018-10-22 00:00 | Recurrent abdominal pain | [facility] | + + + + | 2019-11-02 00:00 | Pseudarthrosis after | [facility] | | | fusion or arthrodesis | | | | (disorder) | | + + + + | 2019-11-02 00:00 | Mechanical complication of | [facility] | | | internal orthopedic | | | | device, other | | + + + + | 2019-11-02 00:00 | Pseudarthrosis After | [facility] | | | Fusion Or Arthrodesis | | + + + + | 2020-07-04 00:00 | Acute torticollis | [facility] | + + + + | 2020-07-04 00:00 | Acute torticollis | [facility] | + + + + | 2020-07-04 00:00 | Acute torticollis | [facility] | + + + + | 2020-07-04 00:00 | Acute torticollis | [facility] | + + + + 2020-07-04 00:00 | Acute torticollis | [facility] | + + + + 2020-07-04 00:00 | Acute torticollis | [facility] | + + + + | 2020-08-12 00:00 | Chronic vomiting | [facility] | + + + + | 2020-08-12 00:00 | Chronic vomiting | [facility] | + + + + | 2020-08-12 00:00 | Chronic vomiting | [facility] | + + + + | 2020-08-12 00:00 | Chronic vomiting | [facility] | + + + + | 2020-08-12 00:00 | Chronic vomiting | [facility] | + + + + | 2020-08-12 00:00 | Chronic vomiting | [facility] | + + + + | 2020-09-25 00:00 | Chronic generalized | [facility] | | | abdominal pain | | + + + + | 2020-09-25 00:00 | Chronic generalized | [facility] | | | abdominal pain | | + + + + | 2020-09-25 00:00 | Chronic generalized | [facility] | | | abdominal pain | | + + + + | 2020-09-25 00:00 | Chronic generalized | [facility] | | | abdominal pain | | + + + + | 2020-09-25 00:00 | Chronic generalized | [facility] | | | abdominal pain | | + + + + | 2020-09-25 00:00 | Chronic generalized | [facility] | | | abdominal pain | | + + + + | 2020-12-09 00:00 | Deep vein thrombosis (DVT) | [facility] | | | of right upper extremity | | + + + + | 2020-12-09 00:00 | Deep vein thrombosis (DVT) | [facility] | | | of right upper extremity | | + + + + | 2020-12-09 00:00 | Deep vein thrombosis (DVT) | [facility] | | | of right upper extremity | | + + + + | 2020-12-09 00:00 | Deep vein thrombosis (DVT) | [facility] | | | of right upper extremity | | + + + + | 2020-12-09 00:00 | Deep vein thrombosis (DVT) | [facility] | | | of right upper extremity | | + + + + | 2020-12-09 00:00 | Deep vein thrombosis (DVT) | [facility] | | | of right upper extremity | | + + + + | 2021-05-16 00:00 | Diarrhea | [facility] | + + + + | 2021-05-16 00:00 | Diarrhea | [facility] | + + + + | 2021-05-16 00:00 | Diarrhea | [facility] | + + + + | 2021-05-16 00:00 | Diarrhea | [facility] | + + + + | 2021-05-16 00:00 | Diarrhea | [facility] | + + + + | 2021-05-16 00:00 | Diarrhea | [facility] | + + + + | 2021-07-19 00:00 | 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 | | + + + + | 2021-07-19 00:00 | 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 | | + + + + | 2021-07-19 00:00 | 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 | | + + + + | 2021-07-19 00:00 | 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 | | + + + + | 2021-07-19 00:00 | 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 | | + + + + | 2021-07-19 00:00 | 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 | | + + + + | 2021-09-22 00:00 | 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 | | + + + + | 2021-09-22 00:00 | 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 | | + + + + | 2021-09-22 00:00 | 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 | | + + + + | 2021-09-22 00:00 | 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 | | + + + + | 2021-09-22 00:00 | 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 | | + + + + | 2021-09-22 00:00 | 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 | | + + + + | 2022-02-18 00:00 | Chronic pulmonary embolism | [facility] | | | | | + + + + | 2022-02-18 00:00 | Chronic pulmonary embolism | [facility] | | | | | + + + + | 2022-02-18 00:00 | Chronic pulmonary embolism | [facility] | | | | | + + + + | 2022-02-18 00:00 | Chronic pulmonary embolism | [facility] | | | | | + + + + | 2022-02-18 00:00 | Chronic pulmonary embolism | [facility] | | | | | + + + + | 2022-02-18 00:00 | Chronic pulmonary embolism | [facility] | | | | | + + + + | 2022-02-18 09:06 | COMPLEX REGIONAL PAIN | [facility] | | | SYNDROME I, UNSPECIFIED | | + + + + | 2022-02-18 09:06 | OTHER PULMONARY EMBOLISM | [facility] | | | WITHOUT ACUTE COR PULMONALE | | | | | | + + + + | 2022-02-18 09:06 | INFLAMMATORY LIVER | [facility] | | | DISEASE, UNSPECIFIED | | + + + + | 2022-02-18 09:06 | NAUSEA WITH VOMITING, | [facility] | | | UNSPECIFIED | | + + + + | 2022-02-18 09:06 | GROUP HOME (CURRENT) USE OF | [facility] | | | ANTITHROMBOTICS/ANTIPLA | | + + + + | 2022-02-18 09:06 | GROUP HOME (CURRENT) USE OF | [facility] | | | OPIATE ANALGESIC | | + + + + | 2022-02-18 09:06 | OTHER RECEIVER STOCKER (CURRENT) | [facility] | | | DRUG THERAPY | | + + + + | 2022-03-16 00:00 | Pulmonary embolism | [facility] | + + + + | 2022-03-16 00:00 | Pulmonary embolism | [facility] | + + + + | 2022-03-16 00:00 | Pulmonary embolism | [facility] | + + + + | 2022-03-16 00:00 | Pulmonary embolism | [facility] | + + + + | 2022-03-16 00:00 | Pulmonary embolism | [facility] | + + + + | 2022-03-16 00:00 | Pulmonary embolism | [facility] | + + + + | 2022-03-16 00:00 | Left lower lobe pneumonia | [facility] | + + + + | 2022-03-16 00:00 | Left lower lobe pneumonia | [facility] | + + + + | 2022-03-16 00:00 | Left lower lobe pneumonia | [facility] | + + + + | 2022-03-16 00:00 | Left lower lobe pneumonia | [facility] | + + + + | 2022-03-16 00:00 | Left lower lobe pneumonia | [facility] | + + + + | 2022-03-16 00:00 | Left lower lobe pneumonia | [facility] | + + + + | 2022-03-16 00:00 | Hypoxia | [facility] | + + + + | 2022-03-16 00:00 | Hypoxia | [facility] | + + + + | 2022-03-16 00:00 | Hypoxia | [facility] | + + + + | 2022-03-16 00:00 | Hypoxia | [facility] | + + + + | 2022-03-16 00:00 | Hypoxia | [facility] | + + + + | 2022-03-16 00:00 | Hypoxia | [facility] | + + + + | 2022-09-20 06:55 | 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 | | | | | | + + + + | 2022-09-20 06:55 | OTHER SPECIFIED DISORDERS | [facility] | | | OF BLADDER | | + + + + | 2022-09-24 09:45 | OBESITY, UNSPECIFIED | [facility] | + + + + | 2022-09-24 09:45 | ERYTHEMA INTERTRIGO | [facility] | + + + + | 2022-09-24 09:45 | RIGHT UPPER QUADRANT PAIN | [facility] | + + + + | 2022-09-27 11:01 | OBESITY, UNSPECIFIED | [facility] | + + + + | 2022-09-27 11:01 | ERYTHEMA INTERTRIGO | [facility] | + + + + | 2022-09-27 11:01 | RIGHT UPPER QUADRANT PAIN | [facility] | + + + + | 2022-09-29 00:00 | Nonspecific abdominal pain | [facility] | | | | | + + + + | 2022-09-29 00:00 | Nonspecific abdominal pain | [facility] | | | | | + + + + | 2022-09-29 00:00 | Nonspecific abdominal pain | [facility] | | | | | + + + + | 2022-09-29 00:00 | Nonspecific abdominal pain | [facility] | | | | | + + + + | 2022-09-29 00:00 | Nonspecific abdominal pain | [facility] | | | | | + + + + | 2022-09-29 00:00 | Nonspecific abdominal pain | [facility] | | | | | + + + + | 2022-09-29 15:10 | UNSPECIFIED ABDOMINAL PAIN | [facility] | | | | | + + + + | 2022-09-29 15:10 | OTHER RECEIVER STOCKER (CURRENT) | [facility] | | | DRUG THERAPY | | + + + + | 2022-09-29 15:10 | ALLERGY STATUS TO NARCOTIC | [facility] | | | AGENT STATUS | | + + + + | 2022-09-29 15:10 | ALLERGY STATUS TO OTH | [facility] | | | DRUG/MEDS/BIOL SUBST STATUS | | | | | | + + + + | 2022-10-01 09:55 | OBESITY, UNSPECIFIED | [facility] | + + + + | 2022-10-01 09:55 | ERYTHEMA INTERTRIGO | [facility] | + + + + | 2022-10-01 09:55 | RIGHT UPPER QUADRANT PAIN | [facility] | + + + + | 2022-10-04 00:00 | Chest pain | [facility] | + + + + | 2022-10-04 00:00 | Chest pain | [facility] | + + + + | 2022-10-04 00:00 | Chest pain | [facility] | + + + + | 2022-10-04 00:00 | Chest pain | [facility] | + + + + | 2022-10-04 00:00 | Chest pain | [facility] | + + + + | 2022-10-04 11:48 | CHEST PAIN, UNSPECIFIED | [facility] | + + + + | 2022-10-04 11:48 | PERSONAL HISTORY OF | [facility] | | | PULMONARY EMBOLISM | | + + + + | 2022-10-04 11:48 | PERSONAL HISTORY OF OTHER | [facility] | | | VENOUS THROMBOSIS AND EM | | + + + + | 2022-10-04 11:48 | ALLERGY STATUS TO NARCOTIC | [facility] | | | AGENT STATUS | | + + + + | 2022-10-04 11:48 | ALLERGY STATUS TO OTH | [facility] | | | DRUG/MEDS/BIOL SUBST STATUS | | | | | | + + + + | 2022-10-06 09:01 | OBESITY, UNSPECIFIED | [facility] | + + + + | 2022-10-06 09:01 | OTHER CHRONIC PAIN | [facility] | + + + + | 2022-10-06 09:01 | ERYTHEMA INTERTRIGO | [facility] | + + + + | 2022-10-06 09:01 | RIGHT UPPER QUADRANT PAIN | [facility] | + + + + | 2022-10-14 09:03 | OBESITY, UNSPECIFIED | [facility] | + + + + | 2022-10-14 09:03 | ERYTHEMA INTERTRIGO | [facility] | + + + + | 2022-10-14 09:03 | RIGHT UPPER QUADRANT PAIN | [facility] | + + + + | 2022-10-22 09:09 | OBESITY, UNSPECIFIED | [facility] | + + + + | 2022-10-22 09:09 | ERYTHEMA INTERTRIGO | [facility] | + + + + | 2022-10-22 09:09 | RIGHT UPPER QUADRANT PAIN | [facility] | + + + + | 2022-10-26 09:55 | OBESITY, UNSPECIFIED | [facility] | + + + + | 2022-10-26 09:55 | OTHER CHRONIC PAIN | [facility] | + + + + | 2022-10-26 09:55 | ERYTHEMA INTERTRIGO | [facility] | + + + + | 2022-10-26 09:55 | RIGHT UPPER QUADRANT PAIN | [facility] | + + + + | 2022-10-26 09:55 | BODY MASS INDEX (BMI) | [facility] | | | 35.0-35.9, ADULT | | + + + + | 2022-10-26 09:55 | ALLERGY STATUS TO NARCOTIC | [facility] | | | AGENT STATUS | | + + + + | 2022-10-26 09:55 | ALLERGY STATUS TO OTH | [facility] | | | DRUG/MEDS/BIOL SUBST STATUS | | | | | | + + + + | 2022-11-01 09:01 | OBESITY, UNSPECIFIED | [facility] | + + + + | 2022-11-01 09:01 | ERYTHEMA INTERTRIGO | [facility] | + + + + | 2022-11-01 09:01 | RIGHT UPPER QUADRANT PAIN | [facility] | + + + + | 2022-11-05 09:04 | OTHER CHRONIC PAIN | [facility] | + + + + | 2022-11-05 09:04 | RIGHT UPPER QUADRANT PAIN | [facility] | + + + + | 2022-11-05 09:04 | NAUSEA WITH VOMITING, | [facility] | | | UNSPECIFIED | | + + + + | 2022-11-10 11:03 | OBESITY, UNSPECIFIED | [facility] | + + + + | 2022-11-10 11:03 | ERYTHEMA INTERTRIGO | [facility] | + + + + | 2022-11-10 11:03 | RIGHT UPPER QUADRANT PAIN | [facility] | + + + + | 2022-11-10 11:03 | BODY MASS INDEX (BMI) | [facility] | | | 35.0-35.9, ADULT | | + + + + | 2022-11-11 08:57 | OBESITY, UNSPECIFIED | [facility] | + + + + | 2022-11-11 08:57 | ERYTHEMA INTERTRIGO | [facility] | + + + + | 2022-11-11 08:57 | RIGHT UPPER QUADRANT PAIN | [facility] | + + + + | 2022-11-11 13:20 | OTHER CHRONIC PAIN | [facility] | + + + + | 2022-11-11 13:20 | UNSPECIFIED ABDOMINAL PAIN | [facility] | | | | | + + + + | 2022-11-11 13:20 | CYCLICAL VOMITING SYNDROME | [facility] | | | UNRELATED TO MIGRAINE | | + + + + | 2022-11-11 13:20 | PROC/TRTMT NOT CRD OUT D/T | [facility] | | | PT LV BEF SEEN BY HLTH | | + + + + | 2022-11-11 13:20 | RECEIVER STOCKER (CURRENT) USE OF | [facility] | | | ANTICOAGULANTS | | + + + + | 2022-11-11 13:20 | OTHER GROUP HOME (CURRENT) | [facility] | | | DRUG THERAPY | | + + + + | 2022-11-11 13:20 | PERSONAL HISTORY OF | [facility] | | | PULMONARY EMBOLISM | | + + + + | 2022-11-11 13:20 | PERSONAL HISTORY OF OTHER | [facility] | | | VENOUS THROMBOSIS AND EM | | + + + + | 2022-11-11 13:20 | ALLERGY STATUS TO NARCOTIC | [facility] | | | AGENT STATUS | | + + + + | 2022-11-14 15:44 | LEFT UPPER QUADRANT PAIN | [facility] | + + + + | 2022-11-14 15:44 | GROUP HOME (CURRENT) USE OF | [facility] | | | ANTICOAGULANTS | | + + + + | 2022-11-14 15:44 | OTHER GROUP HOME (CURRENT) | [facility] | | | DRUG THERAPY | | + + + + | 2022-11-14 15:44 | ALLERGY STATUS TO NARCOTIC | [facility] | | | AGENT STATUS | | + + + + | 2022-11-14 15:44 | ALLERGY STATUS TO OTH | [facility] | | | DRUG/MEDS/BIOL SUBST STATUS | | | | | | + + + + | 2022-11-18 08:59 | OBESITY, UNSPECIFIED | [facility] | + + + + | 2022-11-18 08:59 | ERYTHEMA INTERTRIGO | [facility] | + + + + | 2022-11-18 08:59 | RIGHT UPPER QUADRANT PAIN | [facility] | + + + + | 2022-11-24 08:50 | OBESITY, UNSPECIFIED | [facility] | + + + + | 2022-11-24 08:50 | ERYTHEMA INTERTRIGO | [facility] | + + + + | 2022-11-24 08:50 | RIGHT UPPER QUADRANT PAIN | [facility] | + + + + | 2022-11-24 08:50 | BODY MASS INDEX (BMI) | [facility] | | | 35.0-35.9, ADULT | | + + + + | 2022-11-29 09:04 | OBESITY, UNSPECIFIED | [facility] | + + + + | 2022-11-29 09:04 | ERYTHEMA INTERTRIGO | [facility] | + + + + | 2022-11-29 09:04 | RIGHT UPPER QUADRANT PAIN | [facility] | + + + + | 2022-12-03 09:05 | OBESITY, UNSPECIFIED | [facility] | + + + + | 2022-12-03 09:05 | ERYTHEMA INTERTRIGO | [facility] | + + + + | 2022-12-03 09:05 | RIGHT UPPER QUADRANT PAIN | [facility] | + + + + | 2022-12-06 09:03 | OBESITY, UNSPECIFIED | [facility] | + + + + | 2022-12-06 09:03 | ERYTHEMA INTERTRIGO | [facility] | + + + + | 2022-12-06 09:03 | RIGHT UPPER QUADRANT PAIN | [facility] | + + + + | 2022-12-06 09:03 | BODY MASS INDEX (BMI) | [facility] | | | 35.0-35.9, ADULT | | + + + + | 2022-12-14 08:57 | OBESITY, UNSPECIFIED | [facility] | + + + + | 2022-12-14 08:57 | ERYTHEMA INTERTRIGO | [facility] | + + + + | 2022-12-14 08:57 | RIGHT UPPER QUADRANT PAIN | [facility] | + + + + | 2022-12-14 08:57 | BODY MASS INDEX (BMI) | [facility] | | | 35.0-35.9, ADULT | | + + + + | 2022-12-17 09:03 | OBESITY, UNSPECIFIED | [facility] | + + + + | 2022-12-17 09:03 | ERYTHEMA INTERTRIGO | [facility] | + + + + | 2022-12-17 09:03 | RIGHT UPPER QUADRANT PAIN | [facility] | + + + + | 2022-12-17 09:03 | BODY MASS INDEX (BMI) | [facility] | | | 35.0-35.9, ADULT | | + + + + | 2022-12-21 08:56 | OBESITY, UNSPECIFIED | [facility] | + + + + | 2022-12-21 08:56 | OTHER CHRONIC PAIN | [facility] | + + + + | 2022-12-21 08:56 | ERYTHEMA INTERTRIGO | [facility] | + + + + | 2022-12-21 08:56 | RIGHT UPPER QUADRANT PAIN | [facility] | + + + + | 2022-12-21 08:56 | BODY MASS INDEX (BMI) | [facility] | | | 35.0-35.9, ADULT | | + + + + | 2022-12-23 11:17 | 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 | | | | | | + + + + | 2022-12-23 11:17 | ENCOUNTER FOR | [facility] | | | PREPROCEDURAL LABORATORY | | | | EXAMINATION | | + + + + | 2022-12-24 09:03 | OBESITY, UNSPECIFIED | [facility] | + + + + | 2022-12-24 09:03 | OTHER CHRONIC PAIN | [facility] | + + + + | 2022-12-24 09:03 | ERYTHEMA INTERTRIGO | [facility] | + + + + | 2022-12-24 09:03 | RIGHT UPPER QUADRANT PAIN | [facility] | + + + + | 2022-12-24 09:03 | BODY MASS INDEX (BMI) | [facility] | | | 35.0-35.9, ADULT | | + + + + | 2022-12-27 07:00 | OTHER PULMONARY EMBOLISM | [facility] | | | WITHOUT ACUTE COR PULMONA | | + + + + | 2022-12-27 07:00 | 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 | | | | | | + + + + | 2022-12-27 07:00 | RECEIVER STOCKER (CURRENT) USE OF | [facility] | | | ANTICOAGULANTS | | + + + + | 2022-12-27 07:00 | OTHER RECEIVER STOCKER (CURRENT) | [facility] | | | DRUG THERAPY | | + + + + | 2022-12-27 07:00 | ALLERGY STATUS TO NARCOTIC | [facility] | | | AGENT STATUS | | + + + + | 2023-01-04 09:06 | OBESITY, UNSPECIFIED | [facility] | + + + + | 2023-01-04 09:06 | ERYTHEMA INTERTRIGO | [facility] | + + + + | 2023-01-04 09:06 | RIGHT UPPER QUADRANT PAIN | [facility] | + + + + | 2023-01-14 08:57 | OBESITY, UNSPECIFIED | [facility] | + + + + | 2023-01-25 10:51 | OBESITY, UNSPECIFIED | [facility] | + + + + | 2023-01-25 10:51 | BODY MASS INDEX [BMI] | [facility] | | | 30.0-30.9, ADULT | | + + + + | 2023-02-01 10:08 | OBESITY, UNSPECIFIED | [facility] | + + + + | 2023-02-04 10:07 | OBESITY, UNSPECIFIED | [facility] | + + + + | 2023-02-04 10:07 | BODY MASS INDEX [BMI] | [facility] | | | 30.0-30.9, ADULT | | + + + + | 2023-02-07 09:07 | OTHER CHRONIC PAIN | [facility] | + + + + | 2023-02-07 09:07 | RIGHT UPPER QUADRANT PAIN | [facility] | + + + + | 2023-02-08 10:10 | OTHER CHRONIC PAIN | [facility] | + + + + | 2023-02-08 10:10 | RIGHT UPPER QUADRANT PAIN | [facility] | + + + + | 2023-02-11 10:10 | OTHER CHRONIC PAIN | [facility] | + + + + | 2023-02-11 10:10 | RIGHT UPPER QUADRANT PAIN | [facility] | + + + + | 2023-02-15 10:06 | RIGHT UPPER QUADRANT PAIN | [facility] | + + + + | 2023-02-18 10:10 | RIGHT UPPER QUADRANT PAIN | [facility] | + + + + | 2023-02-24 10:04 | OTHER CHRONIC PAIN | [facility] | + + + + | 2023-02-24 10:04 | RIGHT UPPER QUADRANT PAIN | [facility] | + + + + | 2023-02-28 09:10 | OTHER CHRONIC PAIN | [facility] | + + + + | 2023-02-28 09:10 | RIGHT UPPER QUADRANT PAIN | [facility] | + + + + | 2023-03-04 08:59 | OTHER CHRONIC PAIN | [facility] | + + + + | 2023-03-04 08:59 | RIGHT UPPER QUADRANT PAIN | [facility] | + + + + | 2023-03-07 09:04 | OTHER CHRONIC PAIN | [facility] | + + + + | 2023-03-07 09:04 | RIGHT UPPER QUADRANT PAIN | [facility] | + + + + | 2023-03-10 09:04 | OTHER CHRONIC PAIN | [facility] | + + + + | 2023-03-10 09:04 | RIGHT UPPER QUADRANT PAIN | [facility] | + + + + | 2023-03-14 08:58 | OTHER CHRONIC PAIN | [facility] | + + + + | 2023-03-14 08:58 | RIGHT UPPER QUADRANT PAIN | [facility] | + + + + | 2023-03-14 12:07 | UNSPECIFIED ABDOMINAL PAIN | [facility] | | | | | + + + + | 2023-03-14 12:07 | NAUSEA WITH VOMITING, | [facility] | | | UNSPECIFIED | | + + + + | 2023-03-14 12:07 | GROUP HOME (CURRENT) USE OF | [facility] | | | ANTICOAGULANTS | | + + + + | 2023-03-14 12:07 | OTHER GROUP HOME (CURRENT) | [facility] | | | DRUG THERAPY | | + + + + | 2023-03-14 12:07 | ALLERGY STATUS TO NARCOTIC | [facility] | | | AGENT STATUS | | + + + + | 2023-03-14 12:07 | ALLERGY STATUS TO OTH | [facility] | | | DRUG/MEDS/BIOL SUBST STATUS | | | | | | + + + + | 2023-03-17 09:10 | OTHER CHRONIC PAIN | [facility] | + + + + | 2023-03-17 09:10 | RIGHT UPPER QUADRANT PAIN | [facility] | + + + + | 2023-03-22 11:14 | OTHER CHRONIC PAIN | [facility] | + + + + | 2023-03-22 11:14 | RIGHT UPPER QUADRANT PAIN | [facility] | + + + + | 2023-03-24 09:40 | CYCLICAL VOMITING SYNDROME | [facility] | | | UNRELATED TO MIGRAINE | | + + + + | 2023-03-28 09:38 | CYCLICAL VOMITING SYNDROME | [facility] | | | UNRELATED TO MIGRAINE | | + + + + | 2023-03-31 09:35 | CYCLICAL VOMITING SYNDROME | [facility] | | | UNRELATED TO MIGRAINE | | + + + + | 2023-04-04 09:59 | CYCLICAL VOMITING SYNDROME | [facility] | | | UNRELATED TO MIGRAINE | | + + + + | 2023-04-07 09:58 | CYCLICAL VOMITING SYNDROME | [facility] | | | UNRELATED TO MIGRAINE | | + + + + | 2023-04-12 10:06 | CYCLICAL VOMITING SYNDROME | [facility] | | | UNRELATED TO MIGRAINE | | + + + + | 2023-04-14 09:58 | CYCLICAL VOMITING SYNDROME | [facility] | | | UNRELATED TO MIGRAINE | | + + + + | 2023-04-19 10:02 | CYCLICAL VOMITING SYNDROME | [facility] | | | UNRELATED TO MIGRAINE | | + + + + | 2023-04-21 10:18 | CYCLICAL VOMITING SYNDROME | [facility] | | | UNRELATED TO MIGRAINE | | + + + + | 2023-04-25 10:03 | CYCLICAL VOMITING SYNDROME | [facility] | | | UNRELATED TO MIGRAINE | | + + + + | 2023-04-28 10:06 | CYCLICAL VOMITING SYNDROME | [facility] | | | UNRELATED TO MIGRAINE | | + + + + | 2023-05-02 10:38 | CYCLICAL VOMITING SYNDROME | [facility] | | | UNRELATED TO MIGRAINE | | + + + + | 2023-05-05 10:15 | CYCLICAL VOMITING SYNDROME | [facility] | | | UNRELATED TO MIGRAINE | | + + + + | 2023-05-05 10:33 | ENCOUNTER FOR | [facility] | | | PREPROCEDURAL LABORATORY | | | | EXAMINATION | | + + + + | 2023-05-09 06:55 | 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 | | | | | | + + + + | 2023-05-09 06:55 | INTERSTITIAL CYSTITIS | [facility] | | | (CHRONIC) WITHOUT | | + + + + | 2023-05-09 06:55 | OTHER SYMPTOMS AND SIGNS | [facility] | | | INVOLVING THE G | | + + + + | 2023-05-09 06:55 | PERSONAL HISTORY OF | [facility] | | | PULMONARY EMBOLISM | | + + + + | 2023-05-09 10:45 | INTERSTITIAL CYSTITIS | [facility] | | | (CHRONIC) WITHOUT | | + + + + | 2023-05-09 10:45 | OTHER SYMPTOMS AND SIGNS | [facility] | | | INVOLVING THE G | | + + + + | 2023-05-11 09:05 | CYCLICAL VOMITING SYNDROME | [facility] | | | UNRELATED TO MIGRAINE | | + + + + | 2023-05-13 09:43 | CYCLICAL VOMITING SYNDROME | [facility] | | | UNRELATED TO MIGRAINE | | + + + + | 2023-05-16 09:29 | CYCLICAL VOMITING SYNDROME | [facility] | | | UNRELATED TO MIGRAINE | | + + + + | 2023-05-16 14:14 | UPPER ABDOMINAL PAIN, | [facility] | | | UNSPECIFIED | | + + + + | 2023-05-16 14:14 | UNSPECIFIED ABDOMINAL PAIN | [facility] | | | | | + + + + | 2023-05-16 14:14 | NAUSEA WITH VOMITING, | [facility] | | | UNSPECIFIED | | + + + + | 2023-05-16 14:14 | GROUP HOME (CURRENT) USE OF | [facility] | | | ANTICOAGULANTS | | + + + + | 2023-05-16 14:14 | ALLERGY STATUS TO NARCOTIC | [facility] | | | AGENT STATUS | | + + + + | 2023-05-16 14:14 | ALLERGY STATUS TO OTH | [facility] | | | DRUG/MEDS/BIOL SUBST STATUS | | | | | | + + + + | 2023-05-19 09:01 | CYCLICAL VOMITING SYNDROME | [facility] | | | UNRELATED TO MIGRAINE | | + + + + | 2023-05-23 10:11 | CYCLICAL VOMITING SYNDROME | [facility] | | | UNRELATED TO MIGRAINE | | + + + + | 2023-05-26 09:59 | CYCLICAL VOMITING SYNDROME | [facility] | | | UNRELATED TO MIGRAINE | | + + + + | 2023-05-30 10:01 | CYCLICAL VOMITING SYNDROME | [facility] | | | UNRELATED TO MIGRAINE | | + + + + | 2023-06-02 10:05 | CYCLICAL VOMITING SYNDROME | [facility] | | | UNRELATED TO MIGRAINE | | + + + + | 2023-06-06 10:03 | CYCLICAL VOMITING SYNDROME | [facility] | | | UNRELATED TO MIGRAINE | | + + + + | 2023-06-09 10:05 | CYCLICAL VOMITING SYNDROME | [facility] | | | UNRELATED TO MIGRAINE | | + + + + | 2023-06-13 09:59 | CYCLICAL VOMITING SYNDROME | [facility] | | | UNRELATED TO MIGRAINE | | + + + + | 2023-06-16 10:05 | CYCLICAL VOMITING SYNDROME | [facility] | | | UNRELATED TO MIGRAINE | | + + + + | 2023-06-20 10:30 | CYCLICAL VOMITING SYNDROME | [facility] | | | UNRELATED TO MIGRAINE | | + + + + | 2023-06-21 10:19 | CYCLICAL VOMITING SYNDROME | [facility] | | | UNRELATED TO MIGRAINE | | + + + + | 2023-06-23 10:23 | RIGHT UPPER QUADRANT PAIN | [facility] | + + + + | 2023-06-23 10:23 | CYCLICAL VOMITING SYNDROME | [facility] | | | UNRELATED TO MIGRAINE | | + + + + | 2023-06-27 09:27 | CYCLICAL VOMITING SYNDROME | [facility] | | | UNRELATED TO MIGRAINE | | + + + + Procedures + + + + | date | description | facility | + + + + | 2023-05-09 00:00 | DILATION OF BLADDER WITH | [facility] | | | INTRALUMINAL DEVICE, ENDO | | + + + + | 2022-02-08 00:00 | DILATION OF BLADDER, ENDO | [facility] | + + + + | 2022-09-20 00:00 | DILATION OF BLADDER, ENDO | [facility] | + + + + | 2022-09-20 00:00 | DILATION OF BLADDER, ENDO | [facility] | + + + + | 2019-11-02 00:00 | Operation on | [facility] | | | musculoskeletal system | | | | (procedure) | | + + + + | 2019-11-02 00:00 | Operation on bladder | [facility] | | | (procedure) | | + + + + | 2019-11-02 00:00 | History of surgery | [facility] | | | (situation) | | + + + + | 2019-11-02 00:00 | Operation on nervous | [facility] | | | system (procedure) | | + + + + | 2019-11-02 00:00 | Tonsillectomy and | [facility] | | | adenoidectomy (procedure) | | + + + + | 2019-11-02 00:00 | Cholecystectomy | [facility] | | | (procedure) | | + + + + | 2019-11-02 00:00 | Cholecystectomy | [facility] | | | | | + + + + | 2019-11-02 00:00 | Appendectomy | [facility] | | | | | + + + + | 2019-11-02 00:00 | Orthopedic Surgery | [facility] | | | | | + + + + | 2019-11-02 00:00 | Neurological Surgery | [facility] | | | | | + + + + | 2019-11-02 00:00 | Bladder Surgery | [facility] | | | | | + + + + | 2019-11-02 00:00 | history of prior surgery | [facility] | | | [For Hx of Tx, use H | | | | prefix] | | + + + + | 2022-02-08 00:00 | CYSTOSCOPY AND TREATMENT | [facility] | + + + + | 2022-09-20 00:00 | CYSTOSCOPY AND TREATMENT | [facility] | + + + + | 2022-09-20 00:00 | CYSTOSCOPY AND TREATMENT | [facility] | + + + + | 2023-05-09 00:00 | CYSTOSCOPY AND TREATMENT | [facility] | + + + + | 2019-11-02 00:00 | Operation on bone | [facility] | | | (procedure) | | + + + + | 2019-11-02 00:00 | Tonsillectomy With | [facility] | | | Adenoidectomy | | + + + + | 2019-11-02 00:00 | Excision of appendix | [facility] | | | (procedure) | | + + + + | 2022-10-19 00:00 | Urine Drug Test; Direct | [facility] | | | Optical Observation; | | | | Presumptive | | + + + + | 2023-04-22 00:00 | Urine Drug Test; Direct | [facility] | | | Optical Observation; | | | | Presumptive | | + + + + | 2021-02-04 00:00 | ANS testing of sudomotor | [facility] | | | function | | + + + + | 2021-02-04 00:00 | [facility] | | | parasympathetic and | | | | sympathetic funct | | + + + + | 2021-02-04 00:00 | ANS testing; combined | [facility] | | | parasympathetic and | | | | sympathetic funct | | + + + + Results/Labs +--------+--------+ +---------+--------+---------+ | test | date | facility | value | unit | notes | +--------+--------+ +---------+--------+---------+ + + | Result panel 1 | + + + + + +-------+ + + | | (no date) | [facility] | 106 | (missing) | (missing) | | (unavailable | [facility] | | | | + + + +-------+ + + + + | Result panel 2 | + + + + + +------+ + + | | (no date) | [facility] | 23 | (missing) | (missing) | | (unavailable | [facility] | | | | + + + +------+ + + + + | Result panel 3 | + + + + + +--------+ + + | | (no date) | [facility] | 14.9 | (missing) | (missing) | | (unavailable | [facility] | | | | + + + +--------+ + + + + | Result panel 4 | + + + + + +-------+---------+ + | | (no date) | [facility] | 9.3 | mg/dL | (missing) | | (unavailable | | [facility] | | | | + + + +-------+---------+ + + + | Result panel 5 | + + + + + + + + + | No Results | (no date) | [facility] | No Results | (missing) | (missing) | | | | [facility] | | | | | | | [facility] | | | | + + + + + + + + + | Result panel 6 | + + + + + +------+---------+ + | | (no date) | [facility] | 89 | mg/dL | (missing) | | (unavailable | | [facility] | | | | + + + +------+---------+ + + + | Result panel 7 | + + + + + +------+---------+ + | | (no date) | [facility] | 21 | mg/dL | (missing) | | (unavailable | | [facility] | | | | + + + +------+---------+ + + + | Result panel 8 | + + + + + +--------+---------+ + | | (no date) | [facility] | 0.90 | mg/dL | (missing) | | (unavailable | | [facility] | | | | + + + +--------+---------+ + + + | Result panel 9 | + + + + + +------+ + + | | (no date) | [facility] | 88 | (missing) | (missing) | | (unavailable | | [facility] | | | | + + + +------+ + + + + | Result panel 10 | + + + + + +---------+ + + | | (no date) | [facility] | 23.33 | (missing) | (missing) | | (unavailable | | [facility] | | | | + + + +---------+ + + + + | Result panel 11 | + + + + + +-------+ + + | | (no date) | [facility] | 140 | (missing) | (missing) | | (unavailable | [facility] | | | | + + + +-------+ + + + + | Result panel 12 | + + + + + +-------+ + + | | (no date) | [facility] | 3.9 | (missing) | (missing) | | (unavailable | [facility] | | | | + + + +-------+ + + + + | Result panel 13 | + + + + + + + + + | | 2022-01-15 | [facility] | NEGATIVE | (missing) | (missing) | | (unavailable | 11:10 | [facility] | | | | + + + + + + + + + | Result panel 14 | + + + + + +------+ + + | | 2022-02-08 | [facility] | 44 | (missing) | (missing) | | (unavailable | 09:45 | [facility] | | | | + + + +------+ + + + + | Result panel 15 | + + + + + +------+ + + | | 2022-02-17 | [facility] | 48 | (missing) | (missing) | | (unavailable | 17:50 | [facility] | | | | + + + +------+ + + + + | Result panel 16 | + + + + + +------+ + + | | 2022-02-17 | [facility] | 48 | (missing) | (missing) | | (unavailable | 17:50 | [facility] | | | | + + + +------+ + + + + | Result panel 17 | + + + + + +--------+ + + | | 2022-02-17 | [facility] | 1.15 | (missing) | (missing) | | (unavailable | 19:46 | [facility] | | | | + + + +--------+ + + + + | Result panel 18 | + + + + + +--------+ + + | | 2022-02-17 | [facility] | 1.15 | (missing) | (missing) | | (unavailable | 19:46 | [facility] | | | | + + + +--------+ + + + + | Result panel 19 | + + + + + + + + + | | 2022-02-17 | [facility] | NONE SEEN | (missing) | (missing) | | (unavailable | 20:45 | [facility] | | | | + + + + + + + + + | Result panel 20 | + + + + + +------+ + + | | 2022-02-17 | [facility] | 1+ | (missing) | (missing) | | (unavailable | 20:45 | [facility] | | | | + + + +------+ + + + + | Result panel 21 | + + + + + + + + + | | 2022-02-17 | [facility] | NONE SEEN | (missing) | (missing) | | (unavailable | 20:45 | [facility] | | | | + + + + + + + + + | Result panel 22 | + + + + + + + + + | | 2022-03-16 | [facility] | NEGATIVE | (missing) | (missing) | | (unavailable | 12:14 | [facility] | | | | + + + + + + + + + | Result panel 23 | + + + + + + + + + | | 2022-03-16 | [facility] | NEGATIVE | (missing) | (missing) | | (unavailable | 12:14 | [facility] | | | | + + + + + + + + + | Result panel 24 | + + + + + + + + + | | 2022-03-16 | [facility] | NEGATIVE | (missing) | (missing) | | (unavailable | 12:14 | [facility] | | | | + + + + + + + + + | Result panel 25 | + + + + + + + + + | | 2022-03-16 | [facility] | NEGATIVE | (missing) | (missing) | | (unavailable | 12:14 | [facility] | | | | + + + + + + + + + | Result panel 26 | + + + + + +-------+ + + | | 2022-03-16 | [facility] | 0.8 | (missing) | (missing) | | (unavailable | 12:58 | [facility] | | | | + + + +-------+ + + + + | Result panel 27 | + + + + + + + + + | | 2022-03-16 | [facility] | NEGATIVE | (missing) | (missing) | | (unavailable | 12:58 | [facility] | | | | + + + + + + + + + | Result panel 28 | + + + + + +-------+ + + | | 2022-03-16 | [facility] | 0.8 | (missing) | (missing) | | (unavailable | 12:58 | [facility] | | | | + + + +-------+ + + + + | Result panel 29 | + + + + + + + + + | | 2022-03-16 | [facility] | NEGATIVE | (missing) | (missing) | | (unavailable | 12:58 | [facility] | | | | + + + + + + + + + | Result panel 30 | + + + + + +-------+---------+ + | | 2022-04-29 | [facility] | 3.1 | mg/dL | (missing) | | (unavailable | 14:45 | [facility] | | | | + + + +-------+---------+ + + + | Result panel 31 | + + + + + +---------+ + + | | 2022-04-29 | [facility] | 1.801 | (missing) | (missing) | | (unavailable | 14:45 | [facility] | | | | + + + +---------+ + + + + | Result panel 32 | + + + + + + + + + | | 2022-04-29 | [facility] | SEE SCANNED | (missing) | (missing) | | (unavailable | 14:45 | [facility] | | | | + + + + + + + + + | Result panel 33 | + + + + + + + + + | | 2022-04-29 | [facility] | SEE SCANNED | (missing) | (missing) | | (unavailable | 14:45 | [facility] | | | | + + + + + + + + + | Result panel 34 | + + + + + + + + + | | 2022-04-29 | [facility] | SEE SCANNED | (missing) | (missing) | | (unavailable | 14:45 | [facility] | | | | + + + + + + + + + | Result panel 35 | + + + + + + + + + | | 2022-04-29 | [facility] | SEE SCANNED | (missing) | (missing) | | (unavailable | 14:45 | [facility] | | | | + + + + + + + + + | Result panel 36 | + + + + + +-------+---------+ + | | 2022-04-29 | [facility] | 3.1 | mg/dL | (missing) | | (unavailable | 14:45 | [facility] | | | | + + + +-------+---------+ + + + | Result panel 37 | + + + + + +---------+ + + | | 2022-04-29 | [facility] | 1.801 | (missing) | (missing) | | (unavailable | 14:45 | [facility] | | | | + + + +---------+ + + + + | Result panel 38 | + + + + + + + + + | | 2022-04-29 | [facility] | SEE SCANNED | (missing) | (missing) | | (unavailable | 14:45 | [facility] | | | | + + + + + + + + + | Result panel 39 | + + + + + + + + + | | 2022-04-29 | [facility] | SEE SCANNED | (missing) | (missing) | | (unavailable | 14:45 | [facility] | | | | + + + + + + + + + | Result panel 40 | + + + + + + + + + | | 2022-04-29 | [facility] | SEE SCANNED | (missing) | (missing) | | (unavailable | 14:45 | [facility] | | | | + + + + + + + + + | Result panel 41 | + + + + + + + + + | | 2022-04-29 | [facility] | SEE SCANNED | (missing) | (missing) | | (unavailable | 14:45 | [facility] | | | | + + + + + + + + + | Result panel 42 | + + + + + +--------+ + + | | 2022-05-09 | [facility] | 10.5 | (missing) | (missing) | | (unavailable | 17:40 | [facility] | | | | + + + +--------+ + + + + | Result panel 43 | + + + + + +--------+ + + | | 2022-05-09 | [facility] | 4.67 | (missing) | (missing) | | (unavailable | 17:40 [facility] | | | | + + + +--------+ + + + + | Result panel 44 | + + + + + +--------+ + + | | 2022-05-09 | [facility] | 12.8 | (missing) | (missing) | | (unavailable | 17:40 | [facility] | | | | + + + +--------+ + + + + | Result panel 45 | + + + + + +--------+ + + | | 2022-05-09 | [facility] | 39.8 | (missing) | (missing) | | (unavailable | 17:40 | [facility] | | | | + + + +--------+ + + + + | Result panel 46 | + + + + + +--------+ + + | | 2022-05-09 | [facility] | 85.3 | (missing) | (missing) | | (unavailable | 17:40 | [facility] | | | | + + + +--------+ + + + + | Result panel 47 | + + + + + +--------+ + + | | 2022-05-09 | [facility] | 27.4 | (missing) | (missing) | | (unavailable | 17:40 | [facility] | | | | + + + +--------+ + + + + | Result panel 48 | + + + + + +--------+ + + | | 2022-05-09 | [facility] | 32.1 | (missing) | (missing) | | (unavailable | 17:40 | [facility] | | | | + + + +--------+ + + + + | Result panel 49 | + + + + + +--------+ + + | | 2022-05-09 | [facility] | 15.4 | (missing) | (missing) | | (unavailable | 17:40 | [facility] | | | | + + + +--------+ + + + + | Result panel 50 | + + + + + +-------+ + + | | 2022-05-09 | [facility] | 356 | (missing) | (missing) | | (unavailable | 17:40 | [facility] | | | | + + + +-------+ + + + + | Result panel 51 | + + + + + +--------+ + + | | 2022-05-09 | [facility] | 56.4 | (missing) | (missing) | | (unavailable | 17:40 | [facility] | | | | + + + +--------+ + + + + | Result panel 52 | + + + + + +--------+ + + | | 2022-05-09 | [facility] | 35.0 | (missing) | (missing) | | (unavailable | 17:40 | [facility] | | | | + + + +--------+ + + + + | Result panel 53 | + + + + + +-------+ + + | | 2022-05-09 | [facility] | 6.4 | (missing) | (missing) | | (unavailable | 17:40 [facility] | | | | + + + +-------+ + + + + | Result panel 54 | + + + + + +-------+ + + | | 2022-05-09 | [facility] | 1.9 | (missing) | (missing) | | (unavailable | 17:40 | [facility] | | | | + + + +-------+ + + + + | Result panel 55 | + + + + + +-------+ + + | | 2022-05-09 | [facility] | 0.3 | (missing) | (missing) | | (unavailable | 17:40 | [facility] | | | | + + + +-------+ + + + + | Result panel 56 | + + + + + +------+---------+ + | | 2022-05-09 | [facility] | 79 | mg/dL | (missing) | | (unavailable | 17:40 | [facility] | | | | + + + +------+---------+ + + + | Result panel 57 | + + + + + +------+---------+ + | | 2022-05-09 | [facility] | 18 | mg/dL | (missing) | | (unavailable | 17:40 | [facility] | | | | + + + +------+---------+ + + + | Result panel 58 | + + + + + +--------+---------+ + | | 2022-05-09 | [facility] | 0.89 | mg/dL | (missing) | | (unavailable | 17:40 [facility] | | | | + + + +--------+---------+ + + + | Result panel 59 | + + + + + +------+ + + | | 2022-05-09 | [facility] | 90 | (missing) | (missing) | | (unavailable | 17:40 | [facility] | | | | + + + +------+ + + + + | Result panel 60 | + + + + + +---------+ + + | | 2022-05-09 | [facility] | 20.22 | (missing) | (missing) | | (unavailable | 17:40 [facility] | | | | + + + +---------+ + + + + | Result panel 61 | + + + + + +-------+ + + | | 2022-05-09 | [facility] | 139 | (missing) | (missing) | | (unavailable | 17:40 | [facility] | | | | + + + +-------+ + + + + | Result panel 62 | + + + + + +-------+ + + | | 2022-05-09 | [facility] | 3.7 | (missing) | (missing) | | (unavailable | 17:40 [facility] | | | | + + + +-------+ + + + + | Result panel 63 | + + + + + +-------+ + + | | 2022-05-09 | [facility] | 104 | (missing) | (missing) | | (unavailable | 17:40 [facility] | | | | + + + +-------+ + + + + | Result panel 64 | + + + + + +------+ + + | | 2022-05-09 | [facility] | 23 | (missing) | (missing) | | (unavailable | 17:40 [facility] | | | | + + + +------+ + + + + | Result panel 65 | + + + + + +--------+ + + | | 2022-05-09 | [facility] | 15.7 | (missing) | (missing) | | (unavailable | 17:40 [facility] | | | | + + + +--------+ + + + + | Result panel 66 | + + + + + +-------+---------+ + | | 2022-05-09 | [facility] | 8.8 | mg/dL | (missing) | | (unavailable | 17:40 [facility] | | | | + + + +-------+---------+ + + + | Result panel 67 | + + + + + +-------+---------+ + | | 2022-05-09 | [facility] | 1.9 | mg/dL | (missing) | | (unavailable | 17:40 [facility] | | | | + + + +-------+---------+ + + + | Result panel 68 | + + + + + +-------+ + + | | 2022-05-09 | [facility] | 7.3 | (missing) | (missing) | | (unavailable | 17:40 [facility] | | | | + + + +-------+ + + + + | Result panel 69 | + + + + + +-------+ + + | | 2022-05-09 | [facility] | 3.9 | (missing) | (missing) | | (unavailable | 17:40 [facility] | | | | + + + +-------+ + + + + | Result panel 70 | + + + + + +-------+ + + | | 2022-05-09 | [facility] | 3.4 | (missing) | (missing) | | (unavailable | 17:40 [facility] | | | | + + + +-------+ + + + + | Result panel 71 | + + + + + +--------+ + + | | 2022-05-09 | [facility] | 1.15 | (missing) | (missing) | | (unavailable | 17:40 [facility] | | | | + + + +--------+ + + + + | Result panel 72 | + + + + + +-------+ + + | | 2022-05-09 | [facility] | 0.9 | (missing) | (missing) | | (unavailable | 17:40 [facility] | | | | + + + +-------+ + + + + | Result panel 73 | + + + + + +------+ + + | | 2022-05-09 | [facility] | 11 | (missing) | (missing) | | (unavailable | 17:40 [facility] | | | | + + + +------+ + + + + | Result panel 74 | + + + + + +------+ + + | | 2022-05-09 | [facility] | 23 | (missing) | (missing) | | (unavailable | 17:40 [facility] | | | | + + + +------+ + + + + | Result panel 75 | + + + + + +------+ + + | | 2022-05-09 | [facility] | 61 | (missing) | (missing) | | (unavailable | 17:40 [facility] | | | | + + + +------+ + + + + | Result panel 76 | + + + + + +--------+ + + | | 2022-05-09 | [facility] | 10.5 | (missing) | (missing) | | (unavailable | 17:40 [facility] | | | | + + + +--------+ + + + + | Result panel 77 | + + + + + +--------+ + + | | 2022-05-09 | [facility] | 4.67 | (missing) | (missing) | | (unavailable | 17:40 [facility] | | | | + + + +--------+ + + + + | Result panel 78 | + + + + + +--------+ + + | | 2022-05-09 | [facility] | 12.8 | (missing) | (missing) | | (unavailable | 17:40 [facility] | | | | + + + +--------+ + + + + | Result panel 79 | + + + + + +--------+ + + | | 2022-05-09 | [facility] | 39.8 | (missing) | (missing) | | (unavailable | 17:40 [facility] | | | | + + + +--------+ + + + + | Result panel 80 | + + + + + +--------+ + + | | 2022-05-09 | [facility] | 85.3 | (missing) | (missing) | | (unavailable | 17:40 [facility] | | | | + + + +--------+ + + + + | Result panel 81 | + + + + + +--------+ + + | | 2022-05-09 | [facility] | 27.4 | (missing) | (missing) | | (unavailable | 17:40 [facility] | | | | + + + +--------+ + + + + | Result panel 82 | + + + + + +--------+ + + | | 2022-05-09 | [facility] | 32.1 | (missing) | (missing) | | (unavailable | 17:40 [facility] | | | | + + + +--------+ + + + + | Result panel 83 | + + + + + +--------+ + + | | 2022-05-09 | [facility] | 15.4 | (missing) | (missing) | | (unavailable | 17:40 [facility] | | | | + + + +--------+ + + + + | Result panel 84 | + + + + + +-------+ + + | | 2022-05-09 | [facility] | 356 | (missing) | (missing) | | (unavailable | 17:40 [facility] | | | | + + + +-------+ + + + + | Result panel 85 | + + + + + +--------+ + + | | 2022-05-09 | [facility] | 56.4 | (missing) | (missing) | | (unavailable | 17:40 [facility] | | | | + + + +--------+ + + + + | Result panel 86 | + + + + + +--------+ + + | | 2022-05-09 | [facility] | 35.0 | (missing) | (missing) | | (unavailable | 17:40 [facility] | | | | + + + +--------+ + + + + | Result panel 87 | + + + + + +-------+ + + | | 2022-05-09 | [facility] | 6.4 | (missing) | (missing) | | (unavailable | 17:40 [facility] | | | | + + + +-------+ + + + + | Result panel 88 | + + + + + +-------+ + + | | 2022-05-09 | [facility] | 1.9 | (missing) | (missing) | | (unavailable | 17:40 [facility] | | | | + + + +-------+ + + + + | Result panel 89 | + + + + + +-------+ + + | | 2022-05-09 | [facility] | 0.3 | (missing) | (missing) | | (unavailable | 17:40 [facility] | | | | + + + +-------+ + + + + | Result panel 90 | + + + + + +------+---------+ + | | 2022-05-09 | [facility] | 79 | mg/dL | (missing) | | (unavailable | 17:40 [facility] | | | | + + + +------+---------+ + + + | Result panel 91 | + + + + + +------+---------+ + | | 2022-05-09 | [facility] | 18 | mg/dL | (missing) | | (unavailable | 17:40 [facility] | | | | + + + +------+---------+ + + + | Result panel 92 | + + + + + +--------+---------+ + | | 2022-05-09 | [facility] | 0.89 | mg/dL | (missing) | | (unavailable | 17:40 [facility] | | | | + + + +--------+---------+ + + + | Result panel 93 | + + + + + +------+ + + | | 2022-05-09 | [facility] | 90 | (missing) | (missing) | | (unavailable | 17:40 [facility] | | | | + + + +------+ + + + + | Result panel 94 | + + + + + +---------+ + + | | 2022-05-09 | [facility] | 20.22 | (missing) | (missing) | | (unavailable | 17:40 [facility] | | | | + + + +---------+ + + + + | Result panel 95 | + + + + + +-------+ + + | | 2022-05-09 | [facility] | 139 | (missing) | (missing) | | (unavailable | 17:40 [facility] | | | | + + + +-------+ + + + + | Result panel 96 | + + + + + +-------+ + + | | 2022-05-09 | [facility] | 3.7 | (missing) | (missing) | | (unavailable | 17:40 [facility] | | | | + + + +-------+ + + + + | Result panel 97 | + + + + + +-------+ + + | | 2022-05-09 | [facility] | 104 | (missing) | (missing) | | (unavailable | 17:40 [facility] | | | | + + + +-------+ + + + + | Result panel 98 | + + + + + +------+ + + | | 2022-05-09 | [facility] | 23 | (missing) | (missing) | | (unavailable | 17:40 [facility] | | | | + + + +------+ + + + + | Result panel 99 | + + + + + +--------+ + + | | 2022-05-09 | [facility] | 15.7 | (missing) | (missing) | | (unavailable | 17:40 [facility] | | | | + + + +--------+ + + + + | Result panel 100 | + + + + + +-------+---------+ + | | 2022-05-09 | [facility] | 8.8 | mg/dL | (missing) | | (unavailable | 17:40 [facility] | | | | + + + +-------+---------+ + + + | Result panel 101 | + + + + + +-------+---------+ + | | 2022-05-09 | [facility] | 1.9 | mg/dL | (missing) | | (unavailable | 17:40 [facility] | | | | + + + +-------+---------+ + + + | Result panel 102 | + + + + + +-------+ + + | | 2022-05-09 | [facility] | 7.3 | (missing) | (missing) | | (unavailable | 17:40 [facility] | | | | + + + +-------+ + + + + | Result panel 103 | + + + + + +-------+ + + | | 2022-05-09 | [facility] | 3.9 | (missing) | (missing) | | (unavailable | 17:40 [facility] | | | | + + + +-------+ + + + + | Result panel 104 | + + + + + +-------+ + + | | 2022-05-09 | [facility] | 3.4 | (missing) | (missing) | | (unavailable | 17:40 [facility] | | | | + + + +-------+ + + + + | Result panel 105 | + + + + + +--------+ + + | | 2022-05-09 | [facility] | 1.15 | (missing) | (missing) | | (unavailable | 17:40 [facility] | | | | + + + +--------+ + + + + | Result panel 106 | + + + + + +-------+ + + | | 2022-05-09 | [facility] | 0.9 | (missing) | (missing) | | (unavailable | 17:40 [facility] | | | | + + + +-------+ + + + + | Result panel 107 | + + + + + +------+ + + | | 2022-05-09 | [facility] | 11 | (missing) | (missing) | | (unavailable | 17:40 [facility] | | | | + + + +------+ + + + + | Result panel 108 | + + + + + +------+ + + | | 2022-05-09 | [facility] | 23 | (missing) | (missing) | | (unavailable | 17:40 [facility] | | | | + + + +------+ + + + + | Result panel 109 | + + + + + +------+ + + | | 2022-05-09 | [facility] | 61 | (missing) | (missing) | | (unavailable | 17:40 [facility] | | | | + + + +------+ + + + + | Result panel 110 | + + + + + + + + + | | 2022-05-09 | [facility] | YELLOW | (missing) | (missing) | | (unavailable | 19:47 | [facility] | | | | + + + + + + + + + | Result panel 111 | + + + + + +---------+ + + | | 2022-05-09 | [facility] | CLEAR | (missing) | (missing) | | (unavailable | 19:47 | [facility] | | | | + + + +---------+ + + + + | Result panel 112 | + + + + + + + + + | | 2022-05-09 | [facility] | NEGATIVE | (missing) | (missing) | | (unavailable | 19:47 | [facility] | | | | + + + + + + + + + | Result panel 113 | + + + + + + + + + | | 2022-05-09 | [facility] | NEGATIVE | (missing) | (missing) | | (unavailable | 19:47 | [facility] | | | | + + + + + + + + + | Result panel 114 | + + + + + +---------+ + + | | 2022-05-09 | [facility] | SMALL | (missing) | (missing) | | (unavailable | 19:47 | [facility] | | | | + + + +---------+ + + + + | Result panel 115 | + + + + + +---------+ + + | | 2022-05-09 | [facility] | 1.020 | (missing) | (missing) | | (unavailable | 19:47 | [facility] | | | | + + + +---------+ + + + + | Result panel 116 | + + + + + + + + + | | 2022-05-09 | [facility] | TRACE-I | (missing) | (missing) | | (unavailable | 19:47 | [facility] | | | | + + + + + + + + + | Result panel 117 | + + + + + +-------+ + + | | 2022-05-09 | [facility] | 6.0 | (missing) | (missing) | | (unavailable | 19:47 | [facility] | | | | + + + +-------+ + + + + | Result panel 118 | + + + + + + + + + | | 2022-05-09 | [facility] | NEGATIVE | (missing) | (missing) | | (unavailable | 19:47 | [facility] | | | | + + + + + + + + + | Result panel 119 | + + + + + + + + + | | 2022-05-09 | [facility] | NORMAL | (missing) | (missing) | | (unavailable | 19:47 | [facility] | | | | + + + + + + + + + | Result panel 120 | + + + + + + + + + | | 2022-05-09 | [facility] | NEGATIVE | (missing) | (missing) | | (unavailable | 19:47 | [facility] | | | | + + + + + + + + + | Result panel 121 | + + + + + +---------+ + + | | 2022-05-09 | [facility] | SMALL | (missing) | (missing) | | (unavailable | 19:47 | [facility] | | | | + + + +---------+ + + + + | Result panel 122 | + + + + + +-------+ + + | | 2022-05-09 | [facility] | 2-3 | (missing) | (missing) | | (unavailable | 19:47 | [facility] | | | | + + + +-------+ + + + + | Result panel 123 | + + + + + +-------+ + + | | 2022-05-09 | [facility] | 4-6 | (missing) | (missing) | | (unavailable | 19:47 | [facility] | | | | + + + +-------+ + + + + | Result panel 124 | + + + + + + + + + | | 2022-05-09 | [facility] | SQUAMOUS 1+ | (missing) | (missing) | | (unavailable | 19:47 | [facility] | | | | + + + + + + + + + | Result panel 125 | + + + + + +------+ + + | | 2022-05-09 | [facility] | No | (missing) | (missing) | | (unavailable | 19:47 | [facility] | | | | + + + +------+ + + + + | Result panel 126 | + + + + + + + + + | | 2022-05-09 | [facility] | CLEAN CATCH | (missing) | (missing) | | (unavailable | 19:47 | [facility] | | | | + + + + + + + + + | Result panel 127 | + + + + + + + + + | | 2022-06-02 | [facility] | YELLOW | (missing) | (missing) | | (unavailable | 10:50 | [facility] | | | | + + + + + + + + + | Result panel 128 | + + + + + + + + + | | 2022-06-02 | [facility] | CLOUDY | (missing) | (missing) | | (unavailable | 10:50 | [facility] | | | | + + + + + + + + + | Result panel 129 | + + + + + + + + + | | 2022-06-02 | [facility] | NEGATIVE | (missing) | (missing) | | (unavailable | 10:50 | [facility] | | | | + + + + + + + + + | Result panel 130 | + + + + + + + + + | | 2022-06-02 | [facility] | NEGATIVE | (missing) | (missing) | | (unavailable | 10:50 | [facility] | | | | + + + + + + + + + | Result panel 131 | + + + + + + + + + | | 2022-06-02 | [facility] | NEGATIVE | (missing) | (missing) | | (unavailable | 10:50 | [facility] | | | | + + + + + + + + + | Result panel 132 | + + + + + + + + + | | 2022-06-02 | [facility] | >=1.030 | (missing) | (missing) | | (unavailable | 10:50 | [facility] | | | | + + + + + + + + + | Result panel 133 | + + + + + + + + + | | 2022-06-02 | [facility] | TRACE-I | (missing) | (missing) | | (unavailable | 10:50 | [facility] | | | | + + + + + + + + + | Result panel 134 | + + + + + +-------+ + + | | 2022-06-02 | [facility] | 5.0 | (missing) | (missing) | | (unavailable | 10:50 | [facility] | | | | + + + +-------+ + + + + | Result panel 135 | + + + + + + + + + | | 2022-06-02 | [facility] | NEGATIVE | (missing) | (missing) | | (unavailable | 10:50 | [facility] | | | | + + + + + + + + + | Result panel 136 | + + + + + + + + + | | 2022-06-02 | [facility] | NORMAL | (missing) | (missing) | | (unavailable | 10:50 | [facility] | | | | + + + + + + + + + | Result panel 137 | + + + + + + + + + | | 2022-06-02 | [facility] | NEGATIVE | (missing) | (missing) | | (unavailable | 10:50 | [facility] | | | | + + + + + + + + + | Result panel 138 | + + + + + +---------+ + + | | 2022-06-02 | [facility] | SMALL | (missing) | (missing) | | (unavailable | 10:50 | [facility] | | | | + + + +---------+ + + + + | Result panel 139 | + + + + + +-------+ + + | | 2022-06-02 | [facility] | 2-3 | (missing) | (missing) | | (unavailable | 10:50 | [facility] | | | | + + + +-------+ + + + + | Result panel 140 | + + + + + +-------+ + + | | 2022-06-02 | [facility] | 2-3 | (missing) | (missing) | | (unavailable | 10:50 | [facility] | | | + + + +-------+ + + + + | Result panel 141 | + + + + + + + + + | | 2022-06-02 | [facility] | SQUAMOUS 3+ | (missing) | (missing) | | (unavailable | 10:50 | [facility] | | | | + + + + + + + + + | Result panel 142 | + + + + + + + + + | | 2022-06-02 | [facility] | AMORPHOUS | (missing) | (missing) | | (unavailable | 10:50 | [facility] URATES 3+ | | | | ) | | [facility] | | | | + + + + + + + + + | Result panel 143 | + + + + + + + + + | | 2022-06-02 | [facility] | NONE SEEN | (missing) | (missing) | | (unavailable | 10:50 | [facility] | | | | + + + + + + + + + | Result panel 144 | + + + + + + + + + | | 2022-06-02 | [facility] | NONE SEEN | (missing) | (missing) | | (unavailable | 10:50 | [facility] | | | | + + + + + + + + + | Result panel 145 | + + + + + +------+ + + | | 2022-06-02 | [facility] | No | (missing) | (missing) | | (unavailable | 10:50 | [facility] | | | | + + + +------+ + + + + | Result panel 146 | + + + + + + + + + | | 2022-06-02 | [facility] | CLEAN CATCH | (missing) | (missing) | | (unavailable | 10:50 | [facility] | | | | + + + + + + + + + | Result panel 147 | + + + + + + + + + | | 2022-06-02 | [facility] | NEGATIVE | (missing) | (missing) | | (unavailable | 10:50 | [facility] | | | | + + + + + + + + + | Result panel 148 | + + + + + + + + + | | 2022-06-04 | [facility] | NEGATIVE | (missing) | (missing) | | (unavailable | 08:45 | [facility] | | | | + + + + + + + + + | Result panel 149 | + + + + + + + + + | | 2022-06-04 | [facility] | NEGATIVE | (missing) | (missing) | | (unavailable | 08:45 | [facility] | | | | + + + + + + + + + | Result panel 150 | + + + + + + + + + | | 2022-06-04 | [facility] | NEGATIVE | (missing) | (missing) | | (unavailable | 08:45 | [facility] | | | | + + + + + + + + + | Result panel 151 | + + + + + + + + + | | 2022-06-04 | [facility] | NEGATIVE | (missing) | (missing) | | (unavailable | 08:45 | [facility] | | | | + + + + + + + + + | Result panel 152 | + + + + + +------+ + + | | 2022-06-07 | [facility] | 55 | (missing) | (missing) | | (unavailable | 06:22 | [facility] | | | | + + + +------+ + + + + | Result panel 153 | + + + + + +-------+ + + | | 2022-09-14 | [facility] | 9.8 | (missing) | (missing) | | (unavailable | 13:50 | [facility] | | | | + + + +-------+ + + + + | Result panel 154 | + + + + + +--------+ + + | | 2022-09-14 | [facility] | 4.57 | (missing) | (missing) | | (unavailable | 13:50 | [facility] | | | | + + + +--------+ + + + + | Result panel 155 | + + + + + +--------+ + + | | 2022-09-14 | [facility] | 12.6 | (missing) | (missing) | | (unavailable | 13:50 | [facility] | | | | + + + +--------+ + + + + | Result panel 156 | + + + + + +--------+ + + | | 2022-09-14 | [facility] | 38.9 | (missing) | (missing) | | (unavailable | 13:50 | [facility] | | | | + + + +--------+ + + + + | Result panel 157 | + + + + + +--------+ + + | | 2022-09-14 | [facility] | 85.1 | (missing) | (missing) | | (unavailable | 13:50 | [facility] | | | | + + + +--------+ + + + + | Result panel 158 | + + + + + +--------+ + + | | 2022-09-14 | [facility] | 27.5 | (missing) | (missing) | | (unavailable | 13:50 | [facility] | | | | + + + +--------+ + + + + | Result panel 159 | + + + + + +--------+ + + | | 2022-09-14 | [facility] | 32.3 | (missing) | (missing) | | (unavailable | 13:50 | [facility] | | | | + + + +--------+ + + + + | Result panel 160 | + + + + + +--------+ + + | | 2022-09-14 | [facility] | 14.9 | (missing) | (missing) | | (unavailable | 13:50 | [facility] | | | | + + + +--------+ + + + + | Result panel 161 | + + + + + +-------+ + + | | 2022-09-14 | [facility] | 281 | (missing) | (missing) | | (unavailable | 13:50 | [facility] | | | + + + +-------+ + + + + | Result panel 162 | + + + + + +--------+ + + | | 2022-09-14 | [facility] | 56.5 | (missing) | (missing) | | (unavailable | 13:50 | [facility] | | | | + + + +--------+ + + + + | Result panel 163 | + + + + + +--------+ + + | | 2022-09-14 | [facility] | 35.5 | (missing) | (missing) | | (unavailable | 13:50 | [facility] | | | | + + + +--------+ + + + + | Result panel 164 | + + + + + +-------+ + + | | 2022-09-14 | [facility] | 4.9 | (missing) | (missing) | | (unavailable | 13:50 | [facility] | | | | + + + +-------+ + + + + | Result panel 165 | + + + + + +-------+ + + | | 2022-09-14 | [facility] | 2.5 | (missing) | (missing) | | (unavailable | 13:50 | [facility] | | | | + + + +-------+ + + + + | Result panel 166 | + + + + + +-------+ + + | | 2022-09-14 | [facility] | 0.6 | (missing) | (missing) | | (unavailable | 13:50 | [facility] | | | | + + + +-------+ + + + + | Result panel 167 | + + + + + +------+---------+ + | | 2022-09-14 | [facility] | 87 | mg/dL | (missing) | | (unavailable | 13:50 | [facility] | | | | + + + +------+---------+ + + + | Result panel 168 | + + + + + +------+---------+ + | | 2022-09-14 | [facility] | 13 | mg/dL | (missing) | | (unavailable | 13:50 | [facility] | | | | + + + +------+---------+ + + + | Result panel 169 | + + + + + +--------+---------+ + | | 2022-09-14 | [facility] | 0.85 | mg/dL | (missing) | | (unavailable | 13:50 | [facility] | | | | + + + +--------+---------+ + + + | Result panel 170 | + + + + + +------+ + + | | 2022-09-14 | [facility] | 94 | (missing) | (missing) | | (unavailable | 13:50 | [facility] | | | | + + + +------+ + + + + | Result panel 171 | + + + + + +---------+ + + | | 2022-09-14 | [facility] | 15.29 | (missing) | (missing) | | (unavailable | 13:50 | [facility] | | | | + + + +---------+ + + + + | Result panel 172 | + + + + + +-------+ + + | | 2022-09-14 | [facility] | 141 | (missing) | (missing) | | (unavailable | 13:50 | [facility] | | | + + + +-------+ + + + + | Result panel 173 | + + + + + +-------+ + + | | 2022-09-14 | [facility] | 3.7 | (missing) | (missing) | | (unavailable | 13:50 | [facility] | | | + + + +-------+ + + + + | Result panel 174 | + + + + + +-------+ + + | | 2022-09-14 | [facility] | 107 | (missing) | (missing) | | (unavailable | 13:50 | [facility] | | | + + + +-------+ + + + + | Result panel 175 | + + + + + +------+ + + | | 2022-09-14 | [facility] | 25 | (missing) | (missing) | | (unavailable | 13:50 | [facility] | | | + + + +------+ + + + + | Result panel 176 | + + + + + +--------+ + + | | 2022-09-14 | [facility] | 12.7 | (missing) | (missing) | | (unavailable | 13:50 | [facility] | | | | + + + +--------+ + + + + | Result panel 177 | + + + + + +-------+---------+ + | | 2022-09-14 | [facility] | 8.4 | mg/dL | (missing) | | (unavailable | 13:50 | [facility] | | | | + + + +-------+---------+ + + + | Result panel 178 | + + + + + + + + + | | 2022-09-14 | [facility] | YELLOW | (missing) | (missing) | | (unavailable | 13:55 | [facility] | | | | + + + + + + + + + | Result panel 179 | + + + + + +---------+ + + | | 2022-09-14 | [facility] | CLEAR | (missing) | (missing) | | (unavailable | 13:55 | [facility] | | | | + + + +---------+ + + + + | Result panel 180 | + + + + + + + + + | | 2022-09-14 | [facility] | NEGATIVE | (missing) | (missing) | | (unavailable | 13:55 | [facility] | | | | + + + + + + + + + | Result panel 181 | + + + + + + + + + | | 2022-09-14 | [facility] | NEGATIVE | (missing) | (missing) | | (unavailable | 13:55 | [facility] | | | | + + + + + + + + + | Result panel 182 | + + + + + + + + + | | 2022-09-14 | [facility] | NEGATIVE | (missing) | (missing) | | (unavailable | 13:55 | [facility] | | | | + + + + + + + + + | Result panel 183 | + + + + + +---------+ + + | | 2022-09-14 | [facility] | 1.020 | (missing) | (missing) | | (unavailable | 13:55 | [facility] | | | | + + + +---------+ + + + + | Result panel 184 | + + + + + + + + + | | 2022-09-14 | [facility] | NEGATIVE | (missing) | (missing) | | (unavailable | 13:55 | [facility] | | | | + + + + + + + + + | Result panel 185 | + + + + + +-------+ + + | | 2022-09-14 | [facility] | 6.0 | (missing) | (missing) | | (unavailable | 13:55 | [facility] | | | | + + + +-------+ + + + + | Result panel 186 | + + + + + + + + + | | 2022-09-14 | [facility] | NEGATIVE | (missing) | (missing) | | (unavailable | 13:55 | [facility] | | | | + + + + + + + + + | Result panel 187 | + + + + + + + + + | | 2022-09-14 | [facility] | NORMAL | (missing) | (missing) | | (unavailable | 13:55 | [facility] | | | | + + + + + + + + + | Result panel 188 | + + + + + + + + + | | 2022-09-14 | [facility] | NEGATIVE | (missing) | (missing) | | (unavailable | 13:55 | [facility] | | | | + + + + + + + + + | Result panel 189 | + + + + + + + + + | | 2022-09-14 | [facility] | NEGATIVE | (missing) | (missing) | | (unavailable | 13:55 | [facility] | | | | + + + + + + + + + | Result panel 190 | + + + + + + + + + | | 2022-09-14 | [facility] | NEGATIVE | (missing) | (missing) | | (unavailable | 13:55 | [facility] | | | | + + + + + + + + + | Result panel 191 | + + + + + + + + + | | 2022-09-14 | [facility] | NEGATIVE | (missing) | (missing) | | (unavailable | 13:55 | [facility] | | | | + + + + + + + + + | Result panel 192 | + + + + + + + + + | | 2022-09-14 | [facility] | NEGATIVE | (missing) | (missing) | | (unavailable | 13:55 | [facility] | | | | + + + + + + + + + | Result panel 193 | + + + + + +--------+ + + | | 2022-09-29 | [facility] | 10.0 | (missing) | (missing) | | (unavailable | 16:25 | [facility] | | | | + + + +--------+ + + + + | Result panel 194 | + + + + + +--------+ + + | | 2022-09-29 | [facility] | 4.71 | (missing) | (missing) | | (unavailable | 16:25 | [facility] | | | | + + + +--------+ + + + + | Result panel 195 | + + + + + +--------+ + + | | 2022-09-29 | [facility] | 13.0 | (missing) | (missing) | | (unavailable | 16:25 | [facility] | | | | + + + +--------+ + + + + | Result panel 196 | + + + + + +--------+ + + | | 2022-09-29 | [facility] | 40.4 | (missing) | (missing) | | (unavailable | 16:25 | [facility] | | | | + + + +--------+ + + + + | Result panel 197 | + + + + + +--------+ + + | | 2022-09-29 | [facility] | 85.9 | (missing) | (missing) | | (unavailable | 16:25 | [facility] | | | | + + + +--------+ + + + + | Result panel 198 | + + + + + +--------+ + + | | 2022-09-29 | [facility] | 27.6 | (missing) | (missing) | | (unavailable | 16:25 | [facility] | | | | + + + +--------+ + + + + | Result panel 199 | + + + + + +--------+ + + | | 2022-09-29 | [facility] | 32.1 | (missing) | (missing) | | (unavailable | 16:25 | [facility] | | | | + + + +--------+ + + + + | Result panel 200 | + + + + + +--------+ + + | | 2022-09-29 | [facility] | 14.3 | (missing) | (missing) | | (unavailable | 16:25 | [facility] | | | | + + + +--------+ + + + + | Result panel 201 | + + + + + +-------+ + + | | 2022-09-29 | [facility] | 321 | (missing) | (missing) | | (unavailable | 16:25 | [facility] | | | | + + + +-------+ + + + + | Result panel 202 | + + + + + +--------+ + + | | 2022-09-29 | [facility] | 46.6 | (missing) | (missing) | | (unavailable | 16:25 | [facility] | | | | + + + +--------+ + + + + | Result panel 203 | + + + + + +--------+ + + | | 2022-09-29 | [facility] | 42.1 | (missing) | (missing) | | (unavailable | 16:25 [facility] | | | | + + + +--------+ + + + + | Result panel 204 | + + + + + +-------+ + + | | 2022-09-29 | [facility] | 4.7 | (missing) | (missing) | | (unavailable | 16:25 [facility] | | | | + + + +-------+ + + + + | Result panel 205 | + + + + + +-------+ + + | | 2022-09-29 | [facility] | 6.1 | (missing) | (missing) | | (unavailable | 16:25 [facility] | | | | + + + +-------+ + + + + | Result panel 206 | + + + + + +-------+ + + | | 2022-09-29 | [facility] | 0.5 | (missing) | (missing) | | (unavailable | 16:25 [facility] | | | | + + + +-------+ + + + + | Result panel 207 | + + + + + +------+---------+ + | | 2022-09-29 | [facility] | 98 | mg/dL | (missing) | | (unavailable | 16:25 | [facility] | | | | + + + +------+---------+ + + + | Result panel 208 | + + + + + +------+---------+ + | | 2022-09-29 | [facility] | 13 | mg/dL | (missing) | | (unavailable | 16:25 [facility] | | | | + + + +------+---------+ + + + | Result panel 209 | + + + + + +--------+---------+ + | | 2022-09-29 | [facility] | 1.02 | mg/dL | (missing) | | (unavailable | 16:25 [facility] | | | | + + + +--------+---------+ + + + | Result panel 210 | + + + + + +------+ + + | | 2022-09-29 | [facility] | 76 | (missing) | (missing) | | (unavailable | 16:25 [facility] | | | | + + + +------+ + + + + | Result panel 211 | + + + + + +---------+ + + | | 2022-09-29 | [facility] | 12.74 | (missing) | (missing) | | (unavailable | 16:25 | [facility] | | | | + + + +---------+ + + + + | Result panel 212 | + + + + + +-------+ + + | | 2022-09-29 | [facility] | 138 | (missing) | (missing) | | (unavailable | 16:25 | [facility] | | | | + + + +-------+ + + + + | Result panel 213 | + + + + + +-------+ + + | | 2022-09-29 | [facility] | 4.0 | (missing) | (missing) | | (unavailable | 16:25 | [facility] | | | | + + + +-------+ + + + + | Result panel 214 | + + + + + +-------+ + + | | 2022-09-29 | [facility] | 103 | (missing) | (missing) | | (unavailable | 16:25 | [facility] | | | | + + + +-------+ + + + + | Result panel 215 | + + + + + +------+ + + | | 2022-09-29 | [facility] | 27 | (missing) | (missing) | | (unavailable | 16:25 | [facility] | | | | + + + +------+ + + + + | Result panel 216 | + + + + + +--------+ + + | | 2022-09-29 | [facility] | 12.0 | (missing) | (missing) | | (unavailable | 16:25 [facility] | | | | + + + +--------+ + + + + | Result panel 217 | + + + + + +-------+---------+ + | | 2022-09-29 | [facility] | 8.8 | mg/dL | (missing) | | (unavailable | 16:25 [facility] | | | | + + + +-------+---------+ + + + | Result panel 218 | + + + + + +-------+ + + | | 2022-09-29 | [facility] | 7.3 | (missing) | (missing) | | (unavailable | 16:25 [facility] | | | | + + + +-------+ + + + + | Result panel 219 | + + + + + +-------+ + + | | 2022-09-29 | [facility] | 3.9 | (missing) | (missing) | | (unavailable | 16:25 [facility] | | | | + + + +-------+ + + + + | Result panel 220 | + + + + + +-------+ + + | | 2022-09-29 | [facility] | 3.4 | (missing) | (missing) | | (unavailable | 16:25 [facility] | | | | + + + +-------+ + + + + | Result panel 221 | + + + + + +--------+ + + | | 2022-09-29 | [facility] | 1.15 | (missing) | (missing) | | (unavailable | 16:25 [facility] | | | | + + + +--------+ + + + + | Result panel 222 | + + + + + +-------+ + + | | 2022-09-29 | [facility] | 0.4 | (missing) | (missing) | | (unavailable | 16:25 [facility] | | | | + + + +-------+ + + + + | Result panel 223 | + + + + + +-----+ + + | | 2022-09-29 | [facility] | 7 | (missing) | (missing) | | (unavailable | 16:25 | [facility] | | | | + + + +-----+ + + + + | Result panel 224 | + + + + + +------+ + + | | 2022-09-29 | [facility] | 20 | (missing) | (missing) | | (unavailable | 16:25 [facility] | | | | + + + +------+ + + + + | Result panel 225 | + + + + + +------+ + + | | 2022-09-29 | [facility] | 64 | (missing) | (missing) | | (unavailable | 16:25 | [facility] | | | | + + + +------+ + + + + | Result panel 226 | + + + + + +------+ + + | | 2022-09-29 | [facility] | 71 | (missing) | (missing) | | (unavailable | 16:25 | [facility] | | | | + + + +------+ + + + + | Result panel 227 | + + + + + +------+ + + | | 2022-09-29 | [facility] | 71 | (missing) | (missing) | | (unavailable | 16:25 | [facility] | | | | + + + +------+ + + + + | Result panel 228 | + + + + + + + + + | | 2022-09-29 | [facility] | YELLOW | (missing) | (missing) | | (unavailable | 16:45 | [facility] | | | | + + + + + + + + + | Result panel 229 | + + + + + +---------+ + + | | 2022-09-29 | [facility] | CLEAR | (missing) | (missing) | | (unavailable | 16:45 | [facility] | | | | + + + +---------+ + + + + | Result panel 230 | + + + + + + + + + | | 2022-09-29 | [facility] | NEGATIVE | (missing) | (missing) | | (unavailable | 16:45 | [facility] | | | | + + + + + + + + + | Result panel 231 | + + + + + + + + + | | 2022-09-29 | [facility] | NEGATIVE | (missing) | (missing) | | (unavailable | 16:45 | [facility] | | | | + + + + + + + + + | Result panel 232 | + + + + + + + + + | | 2022-09-29 | [facility] | NEGATIVE | (missing) | (missing) | | (unavailable | 16:45 | [facility] | | | | + + + + + + + + + | Result panel 233 | + + + + + +---------+ + + | | 2022-09-29 | [facility] | 1.020 | (missing) | (missing) | | (unavailable | 16:45 | [facility] | | | | + + + +---------+ + + + + | Result panel 234 | + + + + + + + + + | | 2022-09-29 | [facility] | MODERATE | (missing) | (missing) | | (unavailable | 16:45 | [facility] | | | | + + + + + + + + + | Result panel 235 | + + + + + +-------+ + + | | 2022-09-29 | [facility] | 8.0 | (missing) | (missing) | | (unavailable | 16:45 | [facility] | | | | + + + +-------+ + + + + | Result panel 236 | + + + + + + + + + | | 2022-09-29 | [facility] | NEGATIVE | (missing) | (missing) | | (unavailable | 16:45 [facility] | | | | + + + + + + + + + | Result panel 237 | + + + + + + + + + | | 2022-09-29 | [facility] | NORMAL | (missing) | (missing) | | (unavailable | 16:45 | [facility] | | | | + + + + + + + + + | Result panel 238 | + + + + + + + + + | | 2022-09-29 | [facility] | NEGATIVE | (missing) | (missing) | | (unavailable | 16:45 | [facility] | | | | + + + + + + + + + | Result panel 239 | + + + + + +---------+ + + | | 2022-09-29 | [facility] | SMALL | (missing) | (missing) | | (unavailable | 16:45 [facility] | | | | + + + +---------+ + + + + | Result panel 240 | + + + + + +---------+ + + | | 2022-09-29 | [facility] | 12-20 | (missing) | (missing) | | (unavailable | 16:45 [facility] | | | | + + + +---------+ + + + + | Result panel 241 | + + + + + +-------+ + + | | 2022-09-29 | [facility] | 4-6 | (missing) | (missing) | | (unavailable | 16:45 | [facility] | | | | + + + +-------+ + + + + | Result panel 242 | + + + + + + + + + | | 2022-09-29 | [facility] | SQUAMOUS 4+ | (missing) | (missing) | | (unavailable | 16:45 | [facility] | | | | + + + + + + + + + | Result panel 243 | + + + + + + + + + | | 2022-09-29 | [facility] | NONE SEEN | (missing) | (missing) | | (unavailable | 16:45 | [facility] | | | | + + + + + + + + + | Result panel 244 | + + + + + +------+ + + | | 2022-09-29 | [facility] | 1+ | (missing) | (missing) | | (unavailable | 16:45 | [facility] | | | | + + + +------+ + + + + | Result panel 245 | + + + + + + + + + | | 2022-09-29 | [facility] | NONE SEEN | (missing) | (missing) | | (unavailable | 16:45 | [facility] | | | | + + + + + + + + + | Result panel 246 | + + + + + +------+ + + | | 2022-09-29 | [facility] | No | (missing) | (missing) | | (unavailable | 16:45 | [facility] | | | | + + + +------+ + + + + | Result panel 247 | + + + + + + + + + | | 2022-09-29 | [facility] | CLEAN CATCH | (missing) | (missing) | | (unavailable | 16:45 | [facility] | | | | + + + + + + + + + | Result panel 248 | + + + + + + + + + | | 2022-09-29 | [facility] | YELLOW | (missing) | (missing) | | (unavailable | 16:45 | [facility] | | | | + + + + + + + + + | Result panel 249 | + + + + + +---------+ + + | | 2022-09-29 | [facility] | CLEAR | (missing) | (missing) | | (unavailable | 16:45 | [facility] | | | | + + + +---------+ + + + + | Result panel 250 | + + + + + + + + + | | 2022-09-29 | [facility] | NEGATIVE | (missing) | (missing) | | (unavailable | 16:45 | [facility] | | | | + + + + + + + + + | Result panel 251 | + + + + + + + + + | | 2022-09-29 | [facility] | NEGATIVE | (missing) | (missing) | | (unavailable | 16:45 | [facility] | | | | + + + + + + + + + | Result panel 252 | + + + + + + + + + | | 2022-09-29 | [facility] | NEGATIVE | (missing) | (missing) | | (unavailable | 16:45 | [facility] | | | | + + + + + + + + + | Result panel 253 | + + + + + +---------+ + + | | 2022-09-29 | [facility] | 1.020 | (missing) | (missing) | | (unavailable | 16:45 | [facility] | | | | + + + +---------+ + + + + | Result panel 254 | + + + + + + + + + | | 2022-09-29 | [facility] | MODERATE | (missing) | (missing) | | (unavailable | 16:45 | [facility] | | | | + + + + + + + + + | Result panel 255 | + + + + + +-------+ + + | | 2022-09-29 | [facility] | 8.0 | (missing) | (missing) | | (unavailable | 16:45 | [facility] | | | | + + + +-------+ + + + + | Result panel 256 | + + + + + + + + + | | 2022-09-29 | [facility] | NEGATIVE | (missing) | (missing) | | (unavailable | 16:45 | [facility] | | | | + + + + + + + + + | Result panel 257 | + + + + + + + + + | | 2022-09-29 | [facility] | NORMAL | (missing) | (missing) | | (unavailable | 16:45 | [facility] | | | | + + + + + + + + + | Result panel 258 | + + + + + + + + + | | 2022-09-29 | [facility] | NEGATIVE | (missing) | (missing) | | (unavailable | 16:45 | [facility] | | | | + + + + + + + + + | Result panel 259 | + + + + + +---------+ + + | | 2022-09-29 | [facility] | SMALL | (missing) | (missing) | | (unavailable | 16:45 | [facility] | | | | [facility] | | | | + + + +---------+ + + + + | Result panel 260 | + + + + + +---------+ + + | | 2022-09-29 | [facility] | 12-20 | (missing) | (missing) | | (unavailable | 16:45 | [facility] | | | | + + + +---------+ + + + + | Result panel 261 | + + + + + +-------+ + + | | 2022-09-29 | [facility] | 4-6 | (missing) | (missing) | | (unavailable | 16:45 | [facility] | | | | + + + +-------+ + + + + | Result panel 262 | + + + + + + + + + | | 2022-09-29 | [facility] | SQUAMOUS 4+ | (missing) | (missing) | | (unavailable | 16:45 | [facility] | | | | + + + + + + + + + | Result panel 263 | + + + + + + + + + | | 2022-09-29 | [facility] | NONE SEEN | (missing) | (missing) | | (unavailable | 16:45 | [facility] | | | | + + + + + + + + + | Result panel 264 | + + + + + +------+ + + | | 2022-09-29 | [facility] | 1+ | (missing) | (missing) | | (unavailable | 16:45 | [facility] | | | | + + + +------+ + + + + | Result panel 265 | + + + + + + + + + | | 2022-09-29 | [facility] | NONE SEEN | (missing) | (missing) | | (unavailable | 16:45 | [facility] | | | | + + + + + + + + + | Result panel 266 | + + + + + +------+ + + | | 2022-09-29 | [facility] | No | (missing) | (missing) | | (unavailable | 16:45 | [facility] | | | | + + + +------+ + + + + | Result panel 267 | + + + + + + + + + | | 2022-09-29 | [facility] | CLEAN CATCH | (missing) | (missing) | | (unavailable | 16:45 | [facility] | | | | + + + + + + + + + | Result panel 268 | + + + + + +--------+ + + | | 2022-10-04 | [facility] | 11.4 | (missing) | (missing) | | (unavailable | 12:10 | [facility] | | | | + + + +--------+ + + + + | Result panel 269 | + + + + + +--------+ + + | | 2022-10-04 | [facility] | 4.84 | (missing) | (missing) | | (unavailable | 12:10 | [facility] | | | | + + + +--------+ + + + + | Result panel 270 | + + + + + +--------+ + + | | 2022-10-04 | [facility] | 13.2 | (missing) | (missing) | | (unavailable | 12:10 | [facility] | | | | + + + +--------+ + + + + | Result panel 271 | + + + + + +--------+ + + | | 2022-10-04 | [facility] | 41.1 | (missing) | (missing) | | (unavailable | 12:10 | [facility] | | | | + + + +--------+ + + + + | Result panel 272 | + + + + + +--------+ + + | | 2022-10-04 | [facility] | 85.0 | (missing) | (missing) | | (unavailable | 12:10 | [facility] | | | | + + + +--------+ + + + + | Result panel 273 | + + + + + +--------+ + + | | 2022-10-04 | [facility] | 27.4 | (missing) | (missing) | | (unavailable | 12:10 | [facility] | | | | + + + +--------+ + + + + | Result panel 274 | + + + + + +--------+ + + | | 2022-10-04 | [facility] | 32.2 | (missing) | (missing) | | (unavailable | 12:10 | [facility] | | | | + + + +--------+ + + + + | Result panel 275 | + + + + + +--------+ + + | | 2022-10-04 | [facility] | 14.1 | (missing) | (missing) | | (unavailable | 12:10 | [facility] | | | | + + + +--------+ + + + + | Result panel 276 | + + + + + +-------+ + + | | 2022-10-04 | [facility] | 332 | (missing) | (missing) | | (unavailable | 12:10 | [facility] | | | | + + + +-------+ + + + + | Result panel 277 | + + + + + +--------+ + + | | 2022-10-04 | [facility] | 64.7 | (missing) | (missing) | | (unavailable | 12:10 | [facility] | | | | + + + +--------+ + + + + | Result panel 278 | + + + + + +--------+ + + | | 2022-10-04 | [facility] | 23.4 | (missing) | (missing) | | (unavailable | 12:10 | [facility] | | | | + + + +--------+ + + + + | Result panel 279 | + + + + + +-------+ + + | | 2022-10-04 | [facility] | 3.9 | (missing) | (missing) | | (unavailable | 12:10 | [facility] | | | | + + + +-------+ + + + + | Result panel 280 | + + + + + +-------+ + + | | 2022-10-04 | [facility] | 7.8 | (missing) | (missing) | | (unavailable | 12:10 | [facility] | | | | + + + +-------+ + + + + | Result panel 281 | + + + + + +-------+ + + | | 2022-10-04 | [facility] | 0.2 | (missing) | (missing) | | (unavailable | 12:10 | [facility] | | | | + + + +-------+ + + + + | Result panel 282 | + + + + + + + + + | | 2022-10-04 | [facility] | < 0.27 | (missing) | (missing) | | (unavailable | 12:10 | [facility] | | | | + + + + + + + + + | Result panel 283 | + + + + + +-------+---------+ + | | 2022-10-04 | [facility] | 158 | mg/dL | (missing) | | (unavailable | 12:10 | [facility] | | | | + + + +-------+---------+ + + + | Result panel 284 | + + + + + +------+---------+ + | | 2022-10-04 | [facility] | 16 | mg/dL | (missing) | | (unavailable | 12:10 | [facility] | | | | + + + +------+---------+ + + + | Result panel 285 | + + + + + +--------+---------+ + | | 2022-10-04 | [facility] | 1.13 | mg/dL | (missing) | | (unavailable | 12:10 | [facility] | | | | + + + +--------+---------+ + + + | Result panel 286 | + + + + + +------+ + + | | 2022-10-04 | [facility] | 67 | (missing) | (missing) | | (unavailable | 12:10 | [facility] | | | | + + + +------+ + + + + | Result panel 287 | + + + + + +---------+ + + | | 2022-10-04 | [facility] | 14.15 | (missing) | (missing) | | (unavailable | 12:10 | [facility] | | | | + + + +---------+ + + + + | Result panel 288 | + + + + + +-------+ + + | | 2022-10-04 | [facility] | 139 | (missing) | (missing) | | (unavailable | 12:10 | [facility] | | | | + + + +-------+ + + + + | Result panel 289 | + + + + + +-------+ + + | | 2022-10-04 | [facility] | 3.3 | (missing) | (missing) | | (unavailable | 12:10 | [facility] | | | | + + + +-------+ + + + + | Result panel 290 | + + + + + +-------+ + + | | 2022-10-04 | [facility] | 103 | (missing) | (missing) | | (unavailable | 12:10 | [facility] | | | | + + + +-------+ + + + + | Result panel 291 | + + + + + +------+ + + | | 2022-10-04 | [facility] | 23 | (missing) | (missing) | | (unavailable | 12:10 | [facility] | | | | + + + +------+ + + + + | Result panel 292 | + + + + + +--------+ + + | | 2022-10-04 | [facility] | 16.3 | (missing) | (missing) | | (unavailable | 12:10 | [facility] | | | | + + + +--------+ + + + + | Result panel 293 | + + + + + +-------+---------+ + | | 2022-10-04 | [facility] | 8.8 | mg/dL | (missing) | | (unavailable | 12:10 | [facility] | | | | + + + +-------+---------+ + + + | Result panel 294 | + + + + + +-------+ + + | | 2022-10-04 | [facility] | 7.4 | (missing) | (missing) | | (unavailable | 12:10 | [facility] | | | | + + + +-------+ + + + + | Result panel 295 | + + + + + +-------+ + + | | 2022-10-04 | [facility] | 3.9 | (missing) | (missing) | | (unavailable | 12:10 | [facility] | | | | + + + +-------+ + + + + | Result panel 296 | + + + + + +-------+ + + | | 2022-10-04 | [facility] | 3.5 | (missing) | (missing) | | (unavailable | 12:10 | [facility] | | | | + + + +-------+ + + + + | Result panel 297 | + + + + + +--------+ + + | | 2022-10-04 | [facility] | 1.11 | (missing) | (missing) | | (unavailable | 12:10 | [facility] | | | | + + + +--------+ + + + + | Result panel 298 | + + + + + +-------+ + + | | 2022-10-04 | [facility] | 0.9 | (missing) | (missing) | | (unavailable | 12:10 | [facility] | | | | + + + +-------+ + + + + | Result panel 299 | + + + + + +-----+ + + | | 2022-10-04 | [facility] | 8 | (missing) | (missing) | | (unavailable | 12:10 | [facility] | | | | + + + +-----+ + + + + | Result panel 300 | + + + + + +------+ + + | | 2022-10-04 | [facility] | 18 | (missing) | (missing) | | (unavailable | 12:10 | [facility] | | | | + + + +------+ + + + + | Result panel 301 | + + + + + +------+ + + | | 2022-10-04 | [facility] | 70 | (missing) | (missing) | | (unavailable | 12:10 | [facility] | | | | + + + +------+ + + + + | Result panel 302 | + + + + + +-------+ + + | | 2022-10-04 | [facility] | 4.0 | (missing) | (missing) | | (unavailable | 12:10 | [facility] | | | | + + + +-------+ + + + + | Result panel 303 | + + + + + + + + + | | 2022-10-04 | [facility] | NEGATIVE | (missing) | (missing) | | (unavailable | 12:10 | [facility] | | | | + + + + + + + + + | Result panel 304 | + + + + + + + + + | | 2022-10-04 | [facility] | NEGATIVE | (missing) | (missing) | | (unavailable | 13:02 | [facility] | | | | + + + + + + + + + | Result panel 305 | + + + + + + + + + | | 2022-10-04 | [facility] | NEGATIVE | (missing) | (missing) | | (unavailable | 13:02 | [facility] | | | | + + + + + + + + + | Result panel 306 | + + + + + + + + + | | 2022-10-04 | [facility] | NEGATIVE | (missing) | (missing) | | (unavailable | 13:02 | [facility] | | | | + + + + + + + + + | Result panel 307 | + + + + + + + + + | | 2022-10-04 | [facility] | NEGATIVE | (missing) | (missing) | | (unavailable | 13:02 | [facility] | | | | + + + + + + + + + | Result panel 308 | + + + + + +--------+ + + | | 2022-11-11 | [facility] | RARE | (missing) | (missing) | | (unavailable | 14:56:08 | [facility] | | | | + + + +--------+ + + + + | Result panel 309 | + + + + + + + + + | | 2022-11-11 | [facility] | YELLOW | (missing) | (missing) | | (unavailable | 14:56:08 | [facility] | | | | + + + + + + + + + | Result panel 310 | + + + + + +---------+ + + | | 2022-11-11 | [facility] | CLEAR | (missing) | (missing) | | (unavailable | 14:56:08 | [facility] | | | | + + + +---------+ + + + + | Result panel 311 | + + + + + + + + + | | 2022-11-11 | [facility] | NEGATIVE | (missing) | (missing) | | (unavailable | 14:56:08 | [facility] | | | | + + + + + + + + + | Result panel 312 | + + + + + + + + + | | 2022-11-11 | [facility] | NEGATIVE | (missing) | (missing) | | (unavailable | 14:56:08 | [facility] | | | | + + + + + + + + + | Result panel 313 | + + + + + + + + + | | 2022-11-11 | [facility] | NEGATIVE | (missing) | (missing) | | (unavailable | 14:56:08 | [facility] | | | | + + + + + + + + + | Result panel 314 | + + + + + +---------+ + + | | 2022-11-11 | [facility] | 1.010 | (missing) | (missing) | | (unavailable | 14:56:08 | [facility] | | | | + + + +---------+ + + + + | Result panel 315 | + + + + + + + + + | | 2022-11-11 | [facility] | NEGATIVE | (missing) | (missing) | | (unavailable | 14:56:08 | [facility] | | | | + + + + + + + + + | Result panel 316 | + + + + + +-------+ + + | | 2022-11-11 | [facility] | 7.0 | (missing) | (missing) | | (unavailable | 14:56:08 | [facility] | | | | + + + +-------+ + + + + | Result panel 317 | + + + + + + + + + | | 2022-11-11 | [facility] | NEGATIVE | (missing) | (missing) | | (unavailable | 14:56:08 | [facility] | | | | + + + + + + + + + | Result panel 318 | + + + + + + + + + | | 2022-11-11 | [facility] | NORMAL | (missing) | (missing) | | (unavailable | 14:56:08 | [facility] | | | | + + + + + + + + + | Result panel 319 | + + + + + + + + + | | 2022-11-11 | [facility] | NEGATIVE | (missing) | (missing) | | (unavailable | 14:56:08 | [facility] | | | | + + + + + + + + + | Result panel 320 | + + + + + +---------+ + + | | 2022-11-11 | [facility] | SMALL | (missing) | (missing) | | (unavailable | 14:56:08 | [facility] | | | | + + + +---------+ + + + + | Result panel 321 | + + + + + +-------+ + + | | 2022-11-11 | [facility] | 0-1 | (missing) | (missing) | | (unavailable | 14:56:08 | [facility] | | | | + + + +-------+ + + + + | Result panel 322 | + + + + + +-------+ + + | | 2022-11-11 | [facility] | 4-6 | (missing) | (missing) | | (unavailable | 14:56:08 | [facility] | | | | + + + +-------+ + + + + | Result panel 323 | + + + + + + + + + | | 2022-11-11 | [facility] | SQUAMOUS 3+ | (missing) | (missing) | | (unavailable | 14:56:08 | [facility] | | | | + + + + + + + + + | Result panel 324 | + + + + + +--------+ + + | | 2022-11-11 | [facility] | RARE | (missing) | (missing) | | (unavailable | 14:56:08 [facility] | | | | + + + +--------+ + + + + | Result panel 325 | + + + + + +------+ + + | | 2022-11-11 | [facility] | No | (missing) | (missing) | | (unavailable | 14:56:08 [facility] | | | | + + + +------+ + + + + | Result panel 326 | + + + + + + + + + | | 2022-11-11 | [facility] | CLEAN CATCH | (missing) | (missing) | | (unavailable | 14:56:08 | [facility] | | | | + + + + + + + + + | Result panel 327 | + + + + + +--------+ + + | | 2022-11-11 | [facility] | 13.4 | (missing) | (missing) | | (unavailable | 16:34:08 [facility] | | | | + + + +--------+ + + + + | Result panel 328 | + + + + + +--------+ + + | | 2022-11-11 | [facility] | 4.37 | (missing) | (missing) | | (unavailable | 16:34:08 | [facility] | | | | + + + +--------+ + + + + | Result panel 329 | + + + + + +--------+ + + | | 2022-11-11 | [facility] | 11.9 | (missing) | (missing) | | (unavailable | 16:34:08 [facility] | | | | + + + +--------+ + + + + | Result panel 330 | + + + + + +--------+ + + | | 2022-11-11 | [facility] | 37.4 | (missing) | (missing) | | (unavailable | 16:34:08 [facility] | | | | + + + +--------+ + + + + | Result panel 331 | + + + + + +--------+ + + | | 2022-11-11 | [facility] | 85.5 | (missing) | (missing) | | (unavailable | 16:34:08 [facility] | | | | + + + +--------+ + + + + | Result panel 332 | + + + + + +--------+ + + | | 2022-11-11 | [facility] | 27.2 | (missing) | (missing) | | (unavailable | 16:34:08 [facility] | | | | + + + +--------+ + + + + | Result panel 333 | + + + + + +--------+ + + | | 2022-11-11 | [facility] | 31.8 | (missing) | (missing) | | (unavailable | 16:34:08 [facility] | | | | + + + +--------+ + + + + | Result panel 334 | + + + + + +--------+ + + | | 2022-11-11 | [facility] | 14.1 | (missing) | (missing) | | (unavailable | 16:34:08 [facility] | | | | + + + +--------+ + + + + | Result panel 335 | + + + + + +-------+ + + | | 2022-11-11 | [facility] | 314 | (missing) | (missing) | | (unavailable | 16:34:08 [facility] | | | | + + + +-------+ + + + + | Result panel 336 | + + + + + +--------+ + + | | 2022-11-11 | [facility] | 57.4 | (missing) | (missing) | | (unavailable | 16:34:08 [facility] | | | | + + + +--------+ + + + + | Result panel 337 | + + + + + +--------+ + + | | 2022-11-11 | [facility] | 34.7 | (missing) | (missing) | | (unavailable | 16:34:08 [facility] | | | | + + + +--------+ + + + + | Result panel 338 | + + + + + +-------+ + + | | 2022-11-11 | [facility] | 4.7 | (missing) | (missing) | | (unavailable | 16:34:08 [facility] | | | | + + + +-------+ + + + + | Result panel 339 | + + + + + +-------+ + + | | 2022-11-11 | [facility] | 3.0 | (missing) | (missing) | | (unavailable | 16:34:08 [facility] | | | | + + + +-------+ + + + + | Result panel 340 | + + + + + +-------+ + + | | 2022-11-11 | [facility] | 0.2 | (missing) | (missing) | | (unavailable | 16:34:08 [facility] | | | | + + + +-------+ + + + + | Result panel 341 | + + + + + +------+---------+ + | | 2022-11-11 | [facility] | 74 | mg/dL | (missing) | | (unavailable | 16:34:08 [facility] | | | | + + + +------+---------+ + + + | Result panel 342 | + + + + + +-----+---------+ + | | 2022-11-11 | [facility] | 8 | mg/dL | (missing) | | (unavailable | 16:34:08 [facility] | | | | + + + +-----+---------+ + + + | Result panel 343 | + + + + + +--------+---------+ + | | 2022-11-11 | [facility] | 0.75 | mg/dL | (missing) | | (unavailable | 16:34:08 [facility] | | | | + + + +--------+---------+ + + + | Result panel 344 | + + + + + +-------+ + + | | 2022-11-11 | [facility] | 110 | (missing) | (missing) | | (unavailable | 16:34:08 [facility] | | | | + + + +-------+ + + + + | Result panel 345 | + + + + + +---------+ + + | | 2022-11-11 | [facility] | 10.66 | (missing) | (missing) | | (unavailable | 16:34:08 [facility] | | | | + + + +---------+ + + + + | Result panel 346 | + + + + + +-------+ + + | | 2022-11-11 | [facility] | 142 | (missing) | (missing) | | (unavailable | 16:34:08 [facility] | | | | + + + +-------+ + + + + | Result panel 347 | + + + + + +-------+ + + | | 2022-11-11 | [facility] | 3.8 | (missing) | (missing) | | (unavailable | 16:34:08 [facility] | | | | + + + +-------+ + + + + | Result panel 348 | + + + + + +-------+ + + | | 2022-11-11 | [facility] | 108 | (missing) | (missing) | | (unavailable | 16:34:08 [facility] | | | | + + + +-------+ + + + + | Result panel 349 | + + + + + +------+ + + | | 2022-11-11 | [facility] | 25 | (missing) | (missing) | | (unavailable | 16:34:08 [facility] | | | | + + + +------+ + + + + | Result panel 350 | + + + + + +--------+ + + | | 2022-11-11 | [facility] | 12.8 | (missing) | (missing) | | (unavailable | 16:34:08 [facility] | | | | + + + +--------+ + + + + | Result panel 351 | + + + + + +-------+---------+ + | | 2022-11-11 | [facility] | 8.3 | mg/dL | (missing) | | (unavailable | 16:34:08 [facility] | | | | + + + +-------+---------+ + + + | Result panel 352 | + + + + + +-------+ + + | | 2022-11-11 | [facility] | 6.3 | (missing) | (missing) | | (unavailable | 16:34:08 [facility] | | | | + + + +-------+ + + + + | Result panel 353 | + + + + + +-------+ + + | | 2022-11-11 | [facility] | 3.3 | (missing) | (missing) | | (unavailable | 16:34:08 [facility] | | | | + + + +-------+ + + + + | Result panel 354 | + + + + + +-------+ + + | | 2022-11-11 | [facility] | 3.0 | (missing) | (missing) | | (unavailable | 16:34:08 [facility] | | | | + + + +-------+ + + + + | Result panel 355 | + + + + + +--------+ + + | | 2022-11-11 | [facility] | 1.10 | (missing) | (missing) | | (unavailable | 16:34:08 [facility] | | | | + + + +--------+ + + + + | Result panel 356 | + + + + + +-------+ + + | | 2022-11-11 | [facility] | 1.0 | (missing) | (missing) | | (unavailable | 16:34:08 [facility] | | | | + + + +-------+ + + + + | Result panel 357 | + + + + + +-----+ + + | | 2022-11-11 | [facility] | 8 | (missing) | (missing) | | (unavailable | 16:34:08 [facility] | | | | + + + +-----+ + + + + | Result panel 358 | + + + + + +------+ + + | | 2022-11-11 | [facility] | 13 | (missing) | (missing) | | (unavailable | 16:34:08 [facility] | | | | + + + +------+ + + + + | Result panel 359 | + + + + + +------+ + + | | 2022-11-11 | [facility] | 65 | (missing) | (missing) | | (unavailable | 16:34:08 [facility] | | | | + + + +------+ + + + + | Result panel 360 | + + + + + +------+ + + | | 2022-11-11 | [facility] | 64 | (missing) | (missing) | | (unavailable | 16:34:08 [facility] | | | | + + + +------+ + + + + | Result panel 361 | + + + + + + + + + | | 2022-11-11 | [facility] | NEGATIVE | (missing) | (missing) | | (unavailable | 16:34:08 [facility] | | | | + + + + + + + + + | Result panel 362 | + + + + + +--------+ + + | | 2022-11-14 | [facility] | 14.4 | (missing) | (missing) | | (unavailable | 18:18:08 [facility] | | | | + + + +--------+ + + + + | Result panel 363 | + + + + + +--------+ + + | | 2022-11-14 | [facility] | 5.16 | (missing) | (missing) | | (unavailable | 18:18:08 [facility] | | | | + + + +--------+ + + + + | Result panel 364 | + + + + + +--------+ + + | | 2022-11-14 | [facility] | 14.2 | (missing) | (missing) | | (unavailable | 18:18:08 [facility] | | | | + + + +--------+ + + + + | Result panel 365 | + + + + + +--------+ + + | | 2022-11-14 | [facility] | 43.8 | (missing) | (missing) | | (unavailable | 18:18:08 [facility] | | | | + + + +--------+ + + + + | Result panel 366 | + + + + + +--------+ + + | | 2022-11-14 | [facility] | 84.8 | (missing) | (missing) | | (unavailable | [facility]:18:08 | [facility] | | | | + + + +--------+ + + + + | Result panel 367 | + + + + + +--------+ + + | | 2022-11-14 | [facility] | 27.5 | (missing) | (missing) | | (unavailable | [facility]18:08 [facility] | | | | + + + +--------+ + + + + | Result panel 368 | + + + + + +--------+ + + | | 2022-11-14 | [facility] | 32.4 | (missing) | (missing) | | (unavailable | [facility]18:08 [facility] | | | | + + + +--------+ + + + + | Result panel 369 | + + + + + +--------+ + + | | 2022-11-14 | [facility] | 14.3 | (missing) | (missing) | | (unavailable | [facility]18:08 [facility] | | | | + + + +--------+ + + + + | Result panel 370 | + + + + + +-------+ + + | | 2022-11-14 | [facility] | 382 | (missing) | (missing) | | (unavailable | [facility]18:08 [facility] | | | | + + + +-------+ + + + + | Result panel 371 | + + + + + +--------+ + + | | 2022-11-14 | [facility] | 68.9 | (missing) | (missing) | | (unavailable | [facility]18:08 [facility] | | | | + + + +--------+ + + + + | Result panel 372 | + + + + + +--------+ + + | | 2022-11-14 | [facility] | 23.3 | (missing) | (missing) | | (unavailable | [facility]18:08 [facility] | | | | + + + +--------+ + + + + | Result panel 373 | + + + + + +-------+ + + | | 2022-11-14 | [facility] | 3.8 | (missing) | (missing) | | (unavailable | [facility]18:08 [facility] | | | | + + + +-------+ + + + + | Result panel 374 | + + + + + +-------+ + + | | 2022-11-14 | [facility] | 3.5 | (missing) | (missing) | | (unavailable | [facility]18:08 [facility] | | | | + + + +-------+ + + + + | Result panel 375 | + + + + + +-------+ + + | | 2022-11-14 | [facility] | 0.5 | (missing) | (missing) | | (unavailable | [facility]18:08 [facility] | | | | + + + +-------+ + + + + | Result panel 376 | + + + + + +-------+---------+ + | | 2022-11-14 | [facility] | 103 | mg/dL | (missing) | | (unavailable | [facility]18:08 [facility] | | | | + + + +-------+---------+ + + + | Result panel 377 | + + + + + +------+---------+ + | | 2022-11-14 | [facility] | 12 | mg/dL | (missing) | | (unavailable | [facility]18:08 [facility] | | | | + + + +------+---------+ + + + | Result panel 378 | + + + + + +--------+---------+ + | | 2022-11-14 | [facility] | 0.83 | mg/dL | (missing) | | (unavailable | [facility]18:08 [facility] | | | | + + + +--------+---------+ + + + | Result panel 379 | + + + + + +------+ + + | | 2022-11-14 | [facility] | 97 | (missing) | (missing) | | (unavailable | [facility]18:08 [facility] | | | | + + + +------+ + + + + | Result panel 380 | + + + + + +---------+ + + | | 2022-11-14 | [facility] | 14.45 | (missing) | (missing) | | (unavailable | [facility]18:08 [facility] | | | | + + + +---------+ + + + + | Result panel 381 | + + + + + +-------+ + + | | 2022-11-14 | [facility] | 140 | (missing) | (missing) | | (unavailable | [facility]18:08 [facility] | | | | + + + +-------+ + + + + | Result panel 382 | + + + + + +-------+ + + | | 2022-11-14 | [facility] | 4.1 | (missing) | (missing) | | (unavailable | [facility]18:08 [facility] | | | | + + + +-------+ + + + + | Result panel 383 | + + + + + +-------+ + + | | 2022-11-14 | [facility] | 104 | (missing) | (missing) | | (unavailable | [facility]18:08 [facility] | | | | + + + +-------+ + + + + | Result panel 384 | + + + + + +------+ + + | | 2022-11-14 | [facility] | 25 | (missing) | (missing) | | (unavailable | [facility]18:08 | [facility] | | | | + + + +------+ + + + + | Result panel 385 | + + + + + +--------+ + + | | 2022-11-14 | [facility] | 15.1 | (missing) | (missing) | | (unavailable | 18:18:08 [facility] | | | | + + + +--------+ + + + + | Result panel 386 | + + + + + +-------+---------+ + | | 2022-11-14 | [facility] | 9.3 | mg/dL | (missing) | | (unavailable | 18:18:08 [facility] | | | | + + + +-------+---------+ + + + | Result panel 387 | + + + + + +-------+ + + | | 2022-11-14 | [facility] | 8.0 | (missing) | (missing) | | (unavailable | [facility]:18:08 [facility] | | | | + + + +-------+ + + + + | Result panel 388 | + + + + + +-------+ + + | | 2022-11-14 | [facility] | 4.1 | (missing) | (missing) | | (unavailable | [facility]:18:08 [facility] | | | | + + + +-------+ + + + + | Result panel 389 | + + + + + +-------+ + + | | 2022-11-14 | [facility] | 3.9 | (missing) | (missing) | | (unavailable | [facility]:18:08 [facility] | | | | + + + +-------+ + + + + | Result panel 390 | + + + + + +--------+ + + | | 2022-11-14 | [facility] | 1.05 | (missing) | (missing) | | (unavailable | [facility]:18:08 [facility] | | | + + + +--------+ + + + + | Result panel 391 | + + + + + +-------+ + + | | 2022-11-14 | [facility] | 0.8 | (missing) | (missing) | | (unavailable | [facility]:18:08 [facility] | | | + + + +-------+ + + + + | Result panel 392 | + + + + + +-----+ + + | | 2022-11-14 | [facility] | 8 | (missing) | (missing) | | (unavailable | 18:18:08 [facility] | | | + + + +-----+ + + + + | Result panel 393 | + + + + + +------+ + + | | 2022-11-14 | [facility] | 15 | (missing) | (missing) | | (unavailable | [facility]:18:08 [facility] | | | + + + +------+ + + + + | Result panel 394 | + + + + + +------+ + + | | 2022-11-14 | [facility] | 81 | (missing) | (missing) | | (unavailable | [facility]:18:08 [facility] | | | + + + +------+ + + + + | Result panel 395 | + + + + + +------+ + + | | 2022-11-14 | [facility] | 83 | (missing) | (missing) | | (unavailable | 18:18:08 [facility] | | | + + + +------+ + + + + | Result panel 396 | + + + + + + + + + | | 2022-11-14 | [facility] | NEGATIVE | (missing) | (missing) | | (unavailable | [facility]:18:08 [facility] | | | + + + + + + + + + | Result panel 397 | + + + + + + + + + | | 2022-11-14 | [facility] | YELLOW | (missing) | (missing) | | (unavailable | 18:40:08 | [facility] | | | | + + + + + + + + + | Result panel 398 | + + + + + +---------+ + + | | 2022-11-14 | [facility] | CLEAR | (missing) | (missing) | | (unavailable | 18:40:08 [facility] | | | | + + + +---------+ + + + + | Result panel 399 | + + + + + + + + + | | 2022-11-14 | [facility] | NEGATIVE | (missing) | (missing) | | (unavailable | 18:40:08 | [facility] | | | | + + + + + + + + + | Result panel 400 | + + + + + + + + + | | 2022-11-14 | [facility] | NEGATIVE | (missing) | (missing) | | (unavailable | [facility]:40:08 [facility] | | | | + + + + + + + + + | Result panel 401 | + + + + + + + + + | | 2022-11-14 | [facility] | NEGATIVE | (missing) | (missing) | | (unavailable | [facility]:40:08 [facility] | | | | + + + + + + + + + | Result panel 402 | + + + + + + + + + | | 2022-11-14 | [facility] | >=1.030 | (missing) | (missing) | | (unavailable | [facility]:40:08 [facility] | | | | + + + + + + + + + | Result panel 403 | + + + + + + + + + | | 2022-11-14 | [facility] | NEGATIVE | (missing) | (missing) | | (unavailable | [facility]:40:08 [facility] | | | | + + + + + + + + + | Result panel 404 | + + + + + +-------+ + + | | 2022-11-14 | [facility] | 5.5 | (missing) | (missing) | | (unavailable | 18:40:08 [facility] | | | | + + + +-------+ + + + + | Result panel 405 | + + + + + + + + + | | 2022-11-14 | [facility] | NEGATIVE | (missing) | (missing) | | (unavailable | 18:40:08 [facility] | | | + + + + + + + + + | Result panel 406 | + + + + + + + + + | | 2022-11-14 | [facility] | NORMAL | (missing) | (missing) | | (unavailable | 18:40:08 [facility] | | | | + + + + + + + + + | Result panel 407 | + + + + + + + + + | | 2022-11-14 | [facility] | NEGATIVE | (missing) | (missing) | | (unavailable | [facility]:40:08 [facility] | | | | + + + + + + + + + | Result panel 408 | + + + + + +---------+ + + | | 2022-11-14 | [facility] | TRACE | (missing) | (missing) | | (unavailable | [facility]:40:08 [facility] | | | | + + + +---------+ + + + + | Result panel 409 | + + + + + +-------+ + + | | 2022-11-14 | [facility] | 0-1 | (missing) | (missing) | | (unavailable | [facility]:40:08 [facility] | | | | + + + +-------+ + + + + | Result panel 410 | + + + + + +-------+ + + | | 2022-11-14 | [facility] | 2-3 | (missing) | (missing) | | (unavailable | [facility]:40:08 [facility] | | | | + + + +-------+ + + + + | Result panel 411 | + + + + + + + + + | | 2022-11-14 | [facility] | SQUAMOUS 1+ | (missing) | (missing) | | (unavailable | 18:40:08 | [facility] | | | | + + + + + + + + + | Result panel 412 | + + + + + +------+ + + | | 2022-11-14 | [facility] | No | (missing) | (missing) | | (unavailable | 18:40:08 [facility] | | | | + + + +------+ + + + + | Result panel 413 | + + + + + + + + + | | 2022-11-14 | [facility] | CLEAN CATCH | (missing) | (missing) | | (unavailable | 18:40:08 | [facility] | | | | + + + + + + + + + | Result panel 414 | + + + + + + + + + | | 2022-12-23 | [facility] | YELLOW | (missing) | (missing) | | (unavailable | 11:50:08 | [facility] | | | | + + + + + + + + + | Result panel 415 | + + + + + +---------+ + + | | 2022-12-23 | [facility] | CLEAR | (missing) | (missing) | | (unavailable | 11:50:08 | [facility] | | | | + + + +---------+ + + + + | Result panel 416 | + + + + + + + + + | | 2022-12-23 | [facility] | NEGATIVE | (missing) | (missing) | | (unavailable | 11:50:08 | [facility] | | | | + + + + + + + + + | Result panel 417 | + + + + + + + + + | | 2022-12-23 | [facility] | NEGATIVE | (missing) | (missing) | | (unavailable | 11:50:08 | [facility] | | | | + + + + + + + + + | Result panel 418 | + + + + + + + + + | | 2022-12-23 | [facility] | NEGATIVE | (missing) | (missing) | | (unavailable | 11:50:08 | [facility] | | | | + + + + + + + + + | Result panel 419 | + + + + + + + + + | | 2022-12-23 | [facility] | >=1.030 | (missing) | (missing) | | (unavailable | 11:50:08 | [facility] | | | | + + + + + + + + + | Result panel 420 | + + + + + + + + + | | 2022-12-23 | [facility] | NEGATIVE | (missing) | (missing) | | (unavailable | 11:50:08 | [facility] | | | | + + + + + + + + + | Result panel 421 | + + + + + +-------+ + + | | 2022-12-23 | [facility] | 5.5 | (missing) | (missing) | | (unavailable | 11:50:08 | [facility] | | | | + + + +-------+ + + + + | Result panel 422 | + + + + + + + + + | | 2022-12-23 | [facility] | NEGATIVE | (missing) | (missing) | | (unavailable | 11:50:08 | [facility] | | | | + + + + + + + + + | Result panel 423 | + + + + + + + + + | | 2022-12-23 | [facility] | NORMAL | (missing) | (missing) | | (unavailable | 11:50:08 | [facility] | | | | + + + + + + + + + | Result panel 424 | + + + + + + + + + | | 2022-12-23 | [facility] | NEGATIVE | (missing) | (missing) | | (unavailable | 11:50:08 | [facility] | | | | + + + + + + + + + | Result panel 425 | + + + + + + + + + | | 2022-12-23 | [facility] | NEGATIVE | (missing) | (missing) | | (unavailable | 11:50:08 [facility] | | | | + + + + + + + + + | Result panel 426 | + + + + + + + + + | | 2022-12-23 | [facility] | NEGATIVE | (missing) | (missing) | | (unavailable | 11:50:08 | [facility] | | | | + + + + + + + + + | Result panel 427 | + + + + + +--------+ + + | | 2022-12-23 | [facility] | 10.6 | (missing) | (missing) | | (unavailable | 11:55:08 | [facility] | | | | + + + +--------+ + + + + | Result panel 428 | + + + + + +--------+ + + | | 2022-12-23 | [facility] | 4.94 | (missing) | (missing) | | (unavailable | 11:55:08 [facility] | | | | + + + +--------+ + + + + | Result panel 429 | + + + + + +--------+ + + | | 2022-12-23 | [facility] | 13.5 | (missing) | (missing) | | (unavailable | 11:55:08 | [facility] | | | | + + + +--------+ + + + + | Result panel 430 | + + + + + +--------+ + + | | 2022-12-23 | [facility] | 42.6 | (missing) | (missing) | | (unavailable | 11:55:08 | [facility] | | | | + + + +--------+ + + + + | Result panel 431 | + + + + + +--------+ + + | | 2022-12-23 | [facility] | 86.3 | (missing) | (missing) | | (unavailable | 11:55:08 [facility] | | | + + + +--------+ + + + + | Result panel 432 | + + + + + +--------+ + + | | 2022-12-23 | [facility] | 27.3 | (missing) | (missing) | | (unavailable | 11:55:08 [facility] | | | + + + +--------+ + + + + | Result panel 433 | + + + + + +--------+ + + | | 2022-12-23 | [facility] | 31.6 | (missing) | (missing) | | (unavailable | 11:55:08 [facility] | | | | + + + +--------+ + + + + | Result panel 434 | + + + + + +--------+ + + | | 2022-12-23 | [facility] | 14.9 | (missing) | (missing) | | (unavailable | 11:55:08 [facility] | | | + + + +--------+ + + + + | Result panel 435 | + + + + + +-------+ + + | | 2022-12-23 | [facility] | 396 | (missing) | (missing) | | (unavailable | 11:55:08 [facility] | | | + + + +-------+ + + + + | Result panel 436 | + + + + + +--------+ + + | | 2022-12-23 | [facility] | 59.1 | (missing) | (missing) | | (unavailable | 11:55:08 [facility] | | | + + + +--------+ + + + + | Result panel 437 | + + + + + +--------+ + + | | 2022-12-23 | [facility] | 32.9 | (missing) | (missing) | | (unavailable | 11:55:08 [facility] | | | + + + +--------+ + + + + | Result panel 438 | + + + + + +-------+ + + | | 2022-12-23 | [facility] | 4.1 | (missing) | (missing) | | (unavailable | 11:55:08 [facility] | | | + + + +-------+ + + + + | Result panel 439 | + + + + + +-------+ + + | | 2022-12-23 | [facility] | 3.6 | (missing) | (missing) | | (unavailable | 11:55:08 | [facility] | | | | + + + +-------+ + + + + | Result panel 440 | + + + + + +-------+ + + | | 2022-12-23 | [facility] | 0.3 | (missing) | (missing) | | (unavailable | 11:55:08 [facility] | | | + + + +-------+ + + + + | Result panel 441 | + + + + + +-------+ + + | | 2023-05-05 | [facility] | 9.8 | (missing) | (missing) | | (unavailable | 10:45:07 [facility] | | | + + + +-------+ + + + + | Result panel 442 | + + + + + +--------+ + + | | 2023-05-05 | [facility] | 60.3 | (missing) | (missing) | | (unavailable | 10:45:07 [facility] | | | | + + + +--------+ + + + + | Result panel 443 | + + + + + +--------+ + + | | 2023-05-05 | [facility] | 29.7 | (missing) | (missing) | | (unavailable | 10:45:07 [facility] | | | + + + +--------+ + + + + | Result panel 444 | + + + + + +-------+ + + | | 2023-05-05 | [facility] | 5.1 | (missing) | (missing) | | (unavailable | 10:45:07 [facility] | | | | + + + +-------+ + + + + | Result panel 445 | + + + + + +-------+ + + | | 2023-05-05 | [facility] | 4.3 | (missing) | (missing) | | (unavailable | 10:45:07 [facility] | | | | + + + +-------+ + + + + | Result panel 446 | + + + + + +-------+ + + | | 2023-05-05 | [facility] | 0.6 | (missing) | (missing) | | (unavailable | 10:45:07 [facility] | | | | + + + +-------+ + + + + | Result panel 447 | + + + + + +--------+ + + | | 2023-05-05 | [facility] | 4.80 | (missing) | (missing) | | (unavailable | 10:45:07 [facility] | | | | + + + +--------+ + + + + | Result panel 448 | + + + + + +--------+ + + | | 2023-05-05 | [facility] | 13.5 | (missing) | (missing) | | (unavailable | 10:45:07 [facility] | | | | + + + +--------+ + + + + | Result panel 449 | + + + + + +-------+---------+ + | | 2023-05-05 | [facility] | 113 | mg/dL | (missing) | | (unavailable | 10:45:07 [facility] | | | | + + + +-------+---------+ + + + | Result panel 450 | + + + + + +------+---------+ + | | 2023-05-05 | [facility] | 16 | mg/dL | (missing) | | (unavailable | 10:45:07 [facility] | | | | + + + +------+---------+ + + + | Result panel 451 | + + + + + +--------+---------+ + | | 2023-05-05 | [facility] | 1.03 | mg/dL | (missing) | | (unavailable | 10:45:07 [facility] | | | | + + + +--------+---------+ + + + | Result panel 452 | + + + + + +------+ + + | | 2023-05-05 | [facility] | 75 | (missing) | (missing) | | (unavailable | 10:45:07 [facility] | | | | + + + +------+ + + + + | Result panel 453 | + + + + + +---------+ + + | | 2023-05-05 | [facility] | 15.53 | (missing) | (missing) | | (unavailable | 10:45:07 [facility] | | | | + + + +---------+ + + + + | Result panel 454 | + + + + + +--------+ + + | | 2023-05-05 | [facility] | 41.8 | (missing) | (missing) | | (unavailable | 10:45:07 [facility] | | | | + + + +--------+ + + + + | Result panel 455 | + + + + + +-------+ + + | | 2023-05-05 | [facility] | 136 | (missing) | (missing) | | (unavailable | 10:45:07 [facility] | | | | + + + +-------+ + + + + | Result panel 456 | + + + + + +-------+ + + | | 2023-05-05 | [facility] | 3.8 | (missing) | (missing) | | (unavailable | 10:45:07 [facility] | | | | + + + +-------+ + + + + | Result panel 457 | + + + + + +-------+ + + | | 2023-05-05 | [facility] | 103 | (missing) | (missing) | | (unavailable | 10:45:07 [facility] | | | | + + + +-------+ + + + + | Result panel 458 | + + + + + +------+ + + | | 2023-05-05 | [facility] | 29 | (missing) | (missing) | | (unavailable | 10:45:07 [facility] | | | | + + + +------+ + + + + | Result panel 459 | + + + + + +-------+ + + | | 2023-05-05 | [facility] | 7.8 | (missing) | (missing) | | (unavailable | 10:45:07 [facility] | | | | + + + +-------+ + + + + | Result panel 460 | + + + + + +-------+---------+ + | | 2023-05-05 | [facility] | 8.7 | mg/dL | (missing) | | (unavailable | 10:45:07 [facility] | | | | + + + +-------+---------+ + + + | Result panel 461 | + + + + + +-------+ + + | | 2023-05-05 | [facility] | 9.8 | (missing) | (missing) | | (unavailable | 10:45:07 [facility] | | | | + + + +-------+ + + + + | Result panel 462 | + + + + + +--------+ + + | | 2023-05-05 | [facility] | 4.80 | (missing) | (missing) | | (unavailable | 10:45:07 [facility] | | | | + + + +--------+ + + + + | Result panel 463 | + + + + + +--------+ + + | | 2023-05-05 | [facility] | 87.0 | (missing) | (missing) | | (unavailable | 10:45:07 [facility] | | | | + + + +--------+ + + + + | Result panel 464 | + + + + + +--------+ + + | | 2023-05-05 | [facility] | 13.5 | (missing) | (missing) | | (unavailable | 10:45:07 [facility] | | | | + + + +--------+ + + + + | Result panel 465 | + + + + + +--------+ + + | | 2023-05-05 | [facility] | 41.8 | (missing) | (missing) | | (unavailable | 10:45:07 [facility] | | | | + + + +--------+ + + + + | Result panel 466 | + + + + + +--------+ + + | | 2023-05-05 | [facility] | 87.0 | (missing) | (missing) | | (unavailable | 10:45:07 [facility] | | | | + + + +--------+ + + + + | Result panel 467 | + + + + + +--------+ + + | | 2023-05-05 | [facility] | 28.1 | (missing) | (missing) | | (unavailable | 10:45:07 [facility] | | | | + + + +--------+ + + + + | Result panel 468 | + + + + + +--------+ + + | | 2023-05-05 | [facility] | 32.3 | (missing) | (missing) | | (unavailable | 10:45:07 [facility] | | | | + + + +--------+ + + + + | Result panel 469 | + + + + + +--------+ + + | | 2023-05-05 | [facility] | 14.8 | (missing) | (missing) | | (unavailable | 10:45:07 [facility] | | | | + + + +--------+ + + + + | Result panel 470 | + + + + + +-------+ + + | | 2023-05-05 | [facility] | 344 | (missing) | (missing) | | (unavailable | 10:45:07 [facility] | | | | + + + +-------+ + + + + | Result panel 471 | + + + + + +--------+ + + | | 2023-05-05 | [facility] | 60.3 | (missing) | (missing) | | (unavailable | 10:45:07 [facility] | | | | + + + +--------+ + + + + | Result panel 472 | + + + + + +--------+ + + | | 2023-05-05 | [facility] | 29.7 | (missing) | (missing) | | (unavailable | 10:45:07 [facility] | | | | + + + +--------+ + + + + | Result panel 473 | + + + + + +-------+ + + | | 2023-05-05 | [facility] | 5.1 | (missing) | (missing) | | (unavailable | 10:45:07 [facility] | | | | + + + +-------+ + + + + | Result panel 474 | + + + + + +--------+ + + | | 2023-05-05 | [facility] | 28.1 | (missing) | (missing) | | (unavailable | [facility]:45:07 [facility] | | | | + + + +--------+ + + + + | Result panel 475 | + + + + + +-------+ + + | | 2023-05-05 | [facility] | 4.3 | (missing) | (missing) | | (unavailable | [facility]45:07 [facility] | | | | + + + +-------+ + + + + | Result panel 476 | + + + + + +-------+ + + | | 2023-05-05 | [facility] | 0.6 | (missing) | (missing) | | (unavailable | [facility]45:07 [facility] | | | | + + + +-------+ + + + + | Result panel 477 | + + + + + +--------+ + + | | 2023-05-05 | [facility] | 32.3 | (missing) | (missing) | | (unavailable | [facility]:45:07 [facility] | | | | + + + +--------+ + + + + | Result panel 478 | + + + + + +--------+ + + | | 2023-05-05 | [facility] | 14.8 | (missing) | (missing) | | (unavailable | [facility]45:07 [facility] | | | + + + +--------+ + + + + | Result panel 479 | + + + + + +-------+---------+ + | | 2023-05-05 | [facility] | 113 | mg/dL | (missing) | | (unavailable | 10:45:07 [facility] | | | + + + +-------+---------+ + + + | Result panel 480 | + + + + + +------+---------+ + | | 2023-05-05 | [facility] | 16 | mg/dL | (missing) | | (unavailable | [facility]:45:07 [facility] | | | | + + + +------+---------+ + + + | Result panel 481 | + + + + + +--------+---------+ + | | 2023-05-05 | [facility] | 1.03 | mg/dL | (missing) | | (unavailable | [facility]:45:07 [facility] | | | | + + + +--------+---------+ + + + | Result panel 482 | + + + + + +------+ + + | | 2023-05-05 | [facility] | 75 | (missing) | (missing) | | (unavailable | 10[facility]45:07 [facility] | | | | + + + +------+ + + + + | Result panel 483 | + + + + + +---------+ + + | | 2023-05-05 | [facility] | 15.53 | (missing) | (missing) | | (unavailable | [facility]45:07 [facility] | | | | + + + +---------+ + + + + | Result panel 484 | + + + + + +-------+ + + | | 2023-05-05 | [facility] | 136 | (missing) | (missing) | | (unavailable | [facility]45:07 [facility] | | | | + + + +-------+ + + + + | Result panel 485 | + + + + + +-------+ + + | | 2023-05-05 | [facility] | 3.8 | (missing) | (missing) | | (unavailable | [facility]45:07 [facility] | | | + + + +-------+ + + + + | Result panel 486 | + + + + + +-------+ + + | | 2023-05-05 | [facility] | 103 | (missing) | (missing) | | (unavailable | [facility]45:07 [facility] | | | | + + + +-------+ + + + + | Result panel 487 | + + + + + +-------+ + + | | 2023-05-05 | [facility] | 344 | (missing) | (missing) | | (unavailable | [facility]45:07 [facility] | | | | + + + +-------+ + + + + | Result panel 488 | + + + + + +------+ + + | | 2023-05-05 | [facility] | 29 | (missing) | (missing) | | (unavailable | 10[facility]45:07 [facility] | | | | + + + +------+ + + + + | Result panel 489 | + + + + + +-------+ + + | | 2023-05-05 | [facility] | 7.8 | (missing) | (missing) | | (unavailable | [facility]45:07 [facility] | | | | + + + +-------+ + + + + | Result panel 490 | + + + + + +-------+---------+ + | | 2023-05-05 | [facility] | 8.7 | mg/dL | (missing) | | (unavailable | 10:45:07 | [facility] | | | | + + + +-------+---------+ + + + | Result panel 491 | + + + + + + + + + | | 2023-05-05 | [facility] | YELLOW | (missing) | (missing) | | (unavailable | 10:55:07 [facility] | | | | + + + + + + + + + | Result panel 492 | + + + + + + + + + | | 2023-05-05 | [facility] | CLOUDY | (missing) | (missing) | | (unavailable | 10:55:07 [facility] | | | | + + + + + + + + + | Result panel 493 | + + + + + + + + + | | 2023-05-05 | [facility] | NEGATIVE | (missing) | (missing) | | (unavailable | 10:55:07 [facility] | | | | + + + + + + + + + | Result panel 494 | + + + + + + + + + | | 2023-05-05 | [facility] | NEGATIVE | (missing) | (missing) | | (unavailable | 10:55:07 [facility] | | | | + + + + + + + + + | Result panel 495 | + + + + + + + + + | | 2023-05-05 | [facility] | NEGATIVE | (missing) | (missing) | | (unavailable | 10:55:07 [facility] | | | | + + + + + + + + + | Result panel 496 | + + + + + + + + + | | 2023-05-05 | [facility] | >=1.030 | (missing) | (missing) | | (unavailable | 10:55:07 [facility] | | | | + + + + + + + + + | Result panel 497 | + + + + + + + + + | | 2023-05-05 | [facility] | MODERATE | (missing) | (missing) | | (unavailable | 10:55:07 [facility] | | | | + + + + + + + + + | Result panel 498 | + + + + + +-------+ + + | | 2023-05-05 | [facility] | 5.5 | (missing) | (missing) | | (unavailable | 10:55:07 [facility] | | | | + + + +-------+ + + + + | Result panel 499 | + + + + + + + + + | | 2023-05-05 | [facility] | NEGATIVE | (missing) | (missing) | | (unavailable | 10:55:07 [facility] | | | | + + + + + + + + + | Result panel 500 | + + + + + + + + + | | 2023-05-05 | [facility] | NORMAL | (missing) | (missing) | | (unavailable | 10:55:07 [facility] | | | | + + + + + + + + + | Result panel 501 | + + + + + + + + + | | 2023-05-05 | [facility] | NEGATIVE | (missing) | (missing) | | (unavailable | 10:55:07 [facility] | | | | + + + + + + + + + | Result panel 502 | + + + + + + + + + | | 2023-05-05 | [facility] | NEGATIVE | (missing) | (missing) | | (unavailable | 10:55:07 [facility] | | | | + + + + + + + + + | Result panel 503 | + + + + + +--------+ + + | | 2023-05-05 | [facility] | 7-11 | (missing) | (missing) | | (unavailable | 10:55:07 [facility] | | | | + + + +--------+ + + + + | Result panel 504 | + + + + + +-------+ + + | | 2023-05-05 | [facility] | 2-3 | (missing) | (missing) | | (unavailable | 10:55:07 [facility] | | | | + + + +-------+ + + + + | Result panel 505 | + + + + + + + + + | | 2023-05-05 | [facility] | SQUAMOUS 2+ | (missing) | (missing) | | (unavailable | 10:55:07 | [facility] | | | | + + + + + + + + + | Result panel 506 | + + + + + + + + + | | 2023-05-05 | [facility] | NONE SEEN | (missing) | (missing) | | (unavailable | 10:55:07 [facility] | | | | + + + + + + + + + | Result panel 507 | + + + + + +--------+ + + | | 2023-05-05 | [facility] | RARE | (missing) | (missing) | | (unavailable | 10:55:07 [facility] | | | | + + + +--------+ + + + + | Result panel 508 | + + + + + + + + + | | 2023-05-05 | [facility] | NONE SEEN | (missing) | (missing) | | (unavailable | 10:55:07 [facility] | | | | + + + + + + + + + | Result panel 509 | + + + + + +------+ + + | | 2023-05-05 | [facility] | No | (missing) | (missing) | | (unavailable | 10:55:07 [facility] | | | | + + + +------+ + + + + | Result panel 510 | + + + + + + + + + | | 2023-05-05 | [facility] | [facility] | (missing) | (missing) | | (unavailable | [facility]:55:07 [facility] | | | | + + + + + + + + + | Result panel 511 | + + + + + + + + + | | 2023-05-05 | [facility] | YELLOW | (missing) | (missing) | | (unavailable | [facility]:55:07 [facility] | | | | + + + + + + + + + | Result panel 512 | + + + + + + + + + | | 2023-05-05 | [facility] | CLOUDY | (missing) | (missing) | | (unavailable | [facility]:55:07 [facility] | | | | + + + + + + + + + | Result panel 513 | + + + + + + + + + | | 2023-05-05 | [facility] | NEGATIVE | (missing) | (missing) | | (unavailable | [facility]:55:07 [facility] | | | | + + + + + + + + + | Result panel 514 | + + + + + + + + + | | 2023-05-05 | [facility] | NEGATIVE | (missing) | (missing) | | (unavailable | [facility]:55:07 [facility] | | | | + + + + + + + + + | Result panel 515 | + + + + + + + + + | | 2023-05-05 | [facility] | NEGATIVE | (missing) | (missing) | | (unavailable | [facility]:55:07 [facility] | | | | + + + + + + + + + | Result panel 516 | + + + + + + + + + | | 2023-05-05 | [facility] | >=1.030 | (missing) | (missing) | | (unavailable | [facility]:55:07 [facility] | | | | + + + + + + + + + | Result panel 517 | + + + + + + + + + | | 2023-05-05 | [facility] | MODERATE | (missing) | (missing) | | (unavailable | [facility]:55:07 [facility] | | | | + + + + + + + + + | Result panel 518 | + + + + + +-------+ + + | | 2023-05-05 | [facility] | 5.5 | (missing) | (missing) | | (unavailable | [facility]:55:07 [facility] | | | | + + + +-------+ + + + + | Result panel 519 | + + + + + + + + + | | 2023-05-05 | [facility] | NEGATIVE | (missing) | (missing) | | (unavailable | [facility]55:07 [facility] | | | | + + + + + + + + + | Result panel 520 | + + + + + + + + + | | 2023-05-05 | [facility] | NORMAL | (missing) | (missing) | | (unavailable | [facility]:55:07 [facility] | | | | + + + + + + + + + | Result panel 521 | + + + + + + + + + | | 2023-05-05 | [facility] | NEGATIVE | (missing) | (missing) | | (unavailable | [facility]55:07 [facility] | | | | + + + + + + + + + | Result panel 522 | + + + + + + + + + | | 2023-05-05 | [facility] | NEGATIVE | (missing) | (missing) | | (unavailable | [facility]:55:07 [facility] | | | | + + + + + + + + + | Result panel 523 | + + + + + +--------+ + + | | 2023-05-05 | [facility] | 7-11 | (missing) | (missing) | | (unavailable | [facility]:55:07 [facility] | | | | + + + +--------+ + + + + | Result panel 524 | + + + + + +-------+ + + | | 2023-05-05 | [facility] | 2-3 | (missing) | (missing) | | (unavailable | [facility]:55:07 [facility] | | | | + + + +-------+ + + + + | Result panel 525 | + + + + + + + + + | | 2023-05-05 | [facility] | SQUAMOUS 2+ | (missing) | (missing) | | (unavailable | 10:55:07 [facility] | | | | + + + + + + + + + | Result panel 526 | + + + + + + + + + | | 2023-05-05 | [facility] | NONE SEEN | (missing) | (missing) | | (unavailable | [facility]:55:07 [facility] | | | | + + + + + + + + + | Result panel 527 | + + + + + +--------+ + + | | 2023-05-05 | [facility] | RARE | (missing) | (missing) | | (unavailable | 10:55:07 [facility] | | | | + + + +--------+ + + + + | Result panel 528 | + + + + + + + + + | | 2023-05-05 | [facility] | NONE SEEN | (missing) | (missing) | | (unavailable | [facility]:55:07 [facility] | | | | + + + + + + + + + | Result panel 529 | + + + + + +------+ + + | | 2023-05-05 | [facility] | No | (missing) | (missing) | | (unavailable | [facility]55:07 [facility] | | | | + + + +------+ + + + + | Result panel 530 | + + + + + + + + + | | 2023-05-05 | [facility] | CLEAN CATCH | (missing) | (missing) | | (unavailable | [facility]:55:07 [facility] | | | | + + + + + + + + + | Result panel 531 | + + + + + + + + + | | 2023-05-09 | [facility] | NEGATIVE | (missing) | (missing) | | (unavailable | 07:15:07 [facility] | | | | + + + + + + + + + | Result panel 532 | + + + + + + + + + | | 2023-05-09 | [facility] | NEGATIVE | (missing) | (missing) | | (unavailable | 07:15:07 [facility] | | | | + + + + + + + + + | SARS-COV-2 by PCR | + + + + + + + + + | SARS-COV-2 | 2021-01-30 | [facility] | NEGATIVE | (missing) | (missing) | | by PCR | 08:40 | [facility] | | | | | | | [facility] | | | | + + + + + + + + + | DRUG SCREEN, URINE PAIN MGT | + + + + + + + + + | | 2021-01-08 | [facility] | POSITIVE | (missing) | (missing) | | CANNABINOIDS | 00:00 | MED[facility] | ng/mL | | | | | | [facility] | | | | + + + + + + + | ECSTASY | 2021-01-08 | [facility] | NEGATIVE | (missing) | (missing) | | | 00:00 | MEDICAL | ng/mL | | | | | | [facility] | | | | + + + + + + + | OXYCODONE | 2021-01-08 | [facility] | POSITIVE | (missing) | (missing) | | | 00:00 | MEDICAL | ng/mL | | | | | | [facility] | | | | + + + + + + + | | 2021-01-08 | [facility] | NEGATIVE | (missing) | (missing) | | PHENCYCLIDIN | 00:00 | MEDICAL | ng/mL | | | | E | | [facility] | | | | + + + + + + + | CREATININE, | 2021-01-08 | [facility] | 216.98 | mg/dL | (missing) | | URINE | 00:00 | MEDICAL | | | | | | | [facility] | | | | + + + + + + + | | 2021-01-08 | [facility] | NEGATIVE | (missing) | (missing) | | AMPHETAMINES | 00:00 | MEDICAL | ng/mL | | | | | | [facility] | | | | + + + + + + + | | 2021-01-08 | [facility] | NEGATIVE | (missing) | (missing) | | BARBITURATES | 00:00 | MEDICAL | ng/mL | | | | | | [facility] | | | | + + + + + + + | | 2021-01-08 | [facility] | NEGATIVE | (missing) | (missing) | | BENZODIAZEPI | 00:00 | MEDICAL | ng/mL | | | | SONIA | | [facility] | | | | + + + + + + + | COCAINE | 2021-01-08 | [facility] | NEGATIVE | (missing) | (missing) | | | 00:00 | MEDICAL | ng/mL | | | | | | , [facility] | | | | + + + + + + + | METHADONE | 2021-01-08 | [facility] | NEGATIVE | (missing) | (missing) | | | 00:00 | MEDICAL | ng/mL | | | | | | , [facility] | | | | + + + + + + + | OPIATES | 2021-01-08 | [facility] | NEGATIVE | (missing) | (missing) | | | 00:00 | MEDICAL | ng/mL | | | | | | [facility] | | | | + + + + + + + | ALCOHOL | 2021-01-08 | [facility] | NEGATIVE | (missing) | (missing) | | | 00:00 | MEDICAL | ng/mL | | | | | | [facility] | | | | + + + + + + + + + | BUPRENORPHINE, URINE | + + + + + +------+---------+ + | | 2021-01-08 | [facility] | 36 | ng/mL | (missing) | | NORBUPRENORP | 00:00 | MEDICAL | | | | | WARNER | | [facility] | | | | + + + +------+---------+ + | | 2021-01-08 | [facility] | 31 | ng/mL | (missing) | | BUPRENORPHIN | 00:00 | MEDICAL | | | | | E | | [facility] | | | | + + + +------+---------+ + + + | CANNABINOIDS | + + + + + +-------+---------+ + | | 2021-01-08 | [facility] | 285 | ng/mL | (missing) | | CANNABINOIDS | 00:00 | MEDICAL | | | | | | | [facility] | | | | + + + +-------+---------+ + + + | OXYCODONE, URINE | + + + + + + + + + | OXYCODONE | 2021-01-08 | [facility] | NEGATIVE | (missing) | (missing) | | | 00:00 | MEDICAL | ng/mL | | | | | | [facility] | | | | + + + + + + + | OXYMORPHONE | 2021-01-08 | [facility] | 197 | ng/mL | (missing) | | | 00:00 | MEDICAL | | | | | | | [facility] | | | | + + + + + + + | | 2021-01-08 | [facility] | SEE COMMENT | (missing) | (missing) | | NOROXYCODONE | 00:00 | MEDICAL | ng/mL | | | | | | [facility] | | | | + + + + + + + + + | DRUG, SCRN PAIN MGT-URINE | + + + + + + + + + | | 2022-10-19 | [facility] | POSITIVE | (missing) | (missing) | | CANNABINOIDS | 10:35 | MEDICAL | ng/mL | | | | | | [facility] | | | | + + + + + + + | ECSTASY | 2022-10-19 | [facility] | POSITIVE | (missing) | (missing) | | | 10:35 | MEDICAL | ng/mL | | | | | | [facility] | | | | + + + + + + + | OXYCODONE | 2022-10-19 | [facility] | POSITIVE | (missing) | (missing) | | | 10:35 | MEDICAL | ng/mL | | | | | | [facility] | | | | + + + + + + + | | 2022-10-19 | [facility] | NEGATIVE | (missing) | (missing) | | PHENCYCLIDIN | 10:35 | MEDICAL | ng/mL | | | | E | | [facility] | | | | + + + + + + + | CREATININE, | 2022-10-19 | [facility] | 154.65 | mg/dL | (missing) | | URINE | 10:35 | MEDICAL | | | | | | | [facility] | | | | + + + + + + + | | 2022-10-19 | [facility] | POSITIVE | (missing) | (missing) | | AMPHETAMINES | 10:35 | MEDICAL | ng/mL | | | | | | [facility] | | | | + + + + + + + | | 2022-10-19 | [facility] | NEGATIVE | (missing) | (missing) | | BARBITURATES | 10:35 | MEDICAL | ng/mL | | | | | | [facility] | | | | + + + + + + + | | 2022-10-19 | [facility] | NEGATIVE | (missing) | (missing) | | BENZODIAZEPI | 10:35 | MEDICAL | ng/mL | | | | SONIA | | , [facility] | | | | + + + + + + + | COCAINE | 2022-10-19 | [facility] | NEGATIVE | (missing) | (missing) | | | 10:35 | MEDICAL | ng/mL | | | | | | [facility] | | | | + + + + + + + | METHADONE | 2022-10-19 | [facility] | NEGATIVE | (missing) | (missing) | | | 10:35 | MEDICAL | ng/mL | | | | | | [facility] | | | | + + + + + + + | OPIATES | 2022-10-19 | [facility] | POSITIVE | (missing) | (missing) | | | 10:35 | MEDICAL | ng/mL | | | | | | [facility] | | | | + + + + + + + | ALCOHOL | 2022-10-19 | [facility] | NEGATIVE | (missing) | (missing) | | | 10:35 | MEDICAL | ng/mL | | | | | | [facility] | | | | + + + + + + + + + | [id number] | + + + + + +------+---------+ + | | 2022-10-19 | [facility] | 25 | ng/mL | (missing) | | [id number] | 10:35 | MEDICAL | | | | | U-Q | | , P[facility] | | | | + + + +------+---------+ + + + | AMPHETAMINE, URINE CONFIRM | + + + + + + + + + | METHAMPHET | 2022-10-19 | [facility] | NEGATIVE | (missing) | (missing) | | | 10:35 | MEDICAL | ng/mL | | | | | | [facility] | | | | + + + + + + + | PHENTERMINE | 2022-10-19 | [facility] | NEGATIVE | (missing) | (missing) | | | 10:35 | MEDICAL | ng/mL | | | | | | [facility] | | | | + + + + + + + | AMPHETAMINE | 2022-10-19 | [facility] | NEGATIVE | (missing) | (missing) | | | 10:35 | MEDICAL | ng/mL | | | | | | [facility] | | | | + + + + + + + | MDEA | 2022-10-19 | [facility] | NEGATIVE | (missing) | (missing) | | | 10:35 | MEDICAL | ng/mL | | | | | | [facility] | | | | + + + + + + + + + | ECSTASY, URINE CONFIRM | + + + + + + + + + | | 2022-10-19 | [facility] | NEGATIVE | (missing) | (missing) | | MDAMPHETAMIN | 10:35 | MEDICAL | ng/mL | | | | E | | [facility] | | | | + + + + + + + | | 2022-10-19 | [facility] | NEGATIVE | (missing) | (missing) | | MDMETHAMPHET | 10:35 | MEDICAL | ng/mL | | | | | | , [facility] | | | | + + + + + + + + + | OPIATES, URINE CONFIRM | + + + + + + + + + | CODEINE | 2022-10-19 | [facility] | NEGATIVE | (missing) | (missing) | | | 10:35 | MEDICAL | ng/mL | | | | | | [facility] | | | | + + + + + + + | MORPHINE | 2022-10-19 | [facility] | NEGATIVE | (missing) | (missing) | | | 10:35 | MEDICAL | ng/mL | | | | | | [facility] | | | | + + + + + + + | HYDROCODONE | 2022-10-19 | [facility] | NEGATIVE | (missing) | (missing) | | | 10:35 | MEDICAL | ng/mL | | | | | | [facility] | | | | + + + + + + + | | 2022-10-19 | [facility] | NEGATIVE | (missing) | (missing) | | MEPERIDINE-U | 10:35 | MEDICAL | ng/mL | | | | -Q | | [facility] | | | | + + + + + + + | | 2022-10-19 | [facility] | NEGATIVE | (missing) | (missing) | | HYDROMORPHON | 10:35 | MEDICAL | ng/mL | | | | E | | , [facility] | | | | + + + + + + + | | 2022-10-19 | [facility] | NEGATIVE | (missing) | (missing) | | 6ACETYLMORPH | 10:35 | MEDICAL | ng/mL | | | | -U-Q | | , [facility] | | | | + + + + + + + | TRAMADOL | 2022-10-19 | [facility] | NEGATIVE | (missing) | (missing) | | | 10:35 | MEDICAL | ng/mL | | | | | | [facility] | | | | + + + + + + + | TAPENTADOL | 2022-10-19 | [facility] | NEGATIVE | (missing) | (missing) | | | 10:35 | MEDICAL | ng/mL | | | | | | [facility] | | | | + + + + + + + | | 2022-10-19 | [facility] | NEGATIVE | (missing) | (missing) | | NORHYDROCODO | 10:35 | MEDICAL | ng/mL | | | | N | | , [facility] | | | | + + + + + + + | | 2022-10-19 | [facility] | NEGATIVE | (missing) | (missing) | | DMACNHCU-V-L | 10:35 | MEDICAL | ng/mL | | | | | | , [facility] | | | | + + + + + + + | | 2022-10-19 | [facility] | 519 | ng/mL | (missing) | | NOROXMORPHON | 10:35 | MEDICAL | | | | | E | | , [facility] | | | | + + + + + + + | | 2022-10-19 | [facility] | NEGATIVE | (missing) | (missing) | | TAPENTADOL-S | 10:35 | MEDICAL | ng/mL | | | | | | [facility] | | | | + + + + + + + + + | OXYCODONE, URINE CONFIRM | + + + + + +--------+---------+ + | OXYCODONE | 2022-10-19 | [facility] | 2524 | ng/mL | (missing) | | | 10:35 | MEDICAL | | | | | | | , [facility] | | | | + + + +--------+---------+ + | OXYMORPHONE | 2022-10-19 | [facility] | 2197 | ng/mL | (missing) | | | 10:35 | MEDICAL | | | | | | | , [facility] | | | | + + + +--------+---------+ + | | 2022-10-19 | [facility] | 2046 | ng/mL | (missing) | | NOROXYCODONE | 10:35 | MEDICAL | | | | | | | [facility] | | | | + + + +--------+---------+ + Social History + + + + | date | description | facility | + + + + | 2021-02-02 00:00 | Unknown if ever smoked | [facility] | | | | | + + + + | 2021-02-06 00:00 | Unknown if ever smoked | [facility] | | | | | + + + + | 2022-01-12 00:00 | Unknown if ever smoked | [facility] | | | | | + + + + | 2022-10-19 00:00 | Unknown if ever smoked | [facility] | | | | | + + + + | 2023-01-18 00:00 | Unknown if ever smoked | [facility] | | | | | + + + + | 2023-04-22 00:00 | Unknown if ever smoked | [facility] | | | | | + + + + Vital Signs + + + +---------+ | date | measurement | value | units | + + + +---------+ | 2020-05-02 00:00 | BMI | 33.3 | kg/m2 | + + + +---------+ | 2020-05-02 00:00 | BSA | 1.98 | m2 | + + + +---------+ | 2020-05-02 00:00 | height_metric | 165.1 | cm | + + + +---------+ | 2020-05-02 00:00 | height_standard | 65 | in | + + + +---------+ | 2020-05-02 00:00 | temperature_metric | 36.83 | C | | | | | | + + + +---------+ | 2020-05-02 00:00 | | 98.3 | F | | | temperature_standar | | | | | d | | | + + + +---------+ | 2020-05-02 00:00 | weight_metric | 90.72 | kg | + + + +---------+ | 2020-05-02 00:00 | weight_standard | 200 | lb | + + + +---------+ | 2020-07-16 00:00 | BMI | 33.3 | kg/m2 | + + + +---------+ | 2020-07-16 00:00 | BSA | 1.98 | m2 | + + + +---------+ | 2020-07-16 00:00 | height_metric | 165.1 | cm | + + + +---------+ | 2020-07-16 00:00 | height_standard | 65 | in | + + + +---------+ | 2020-07-16 00:00 | weight_metric | 90.72 | kg | + + + +---------+ | 2020-07-16 00:00 | weight_standard | 200 | lb | + + + +---------+ | 2020-09-26 00:00 | BMI | 33.3 | kg/m2 | + + + +---------+ | 2020-09-26 00:00 | BSA | 1.98 | m2 | + + + +---------+ | 2020-09-26 00:00 | height_metric | 165.1 | cm | + + + +---------+ | 2020-09-26 00:00 | height_standard | 65 | in | + + + +---------+ | 2020-09-26 00:00 | weight_metric | 90.72 | kg | + + + +---------+ | 2020-09-26 00:00 | weight_standard | 200 | lb | + + + +---------+ | 2021-01-08 00:00 | BMI | 33.3 | kg/m2 | + + + +---------+ | 2021-01-08 00:00 | BSA | 1.98 | m2 | + + + +---------+ | 2021-01-08 00:00 | height_metric | 165.1 | cm | + + + +---------+ | 2021-01-08 00:00 | height_standard | 65 | in | + + + +---------+ | 2021-01-08 00:00 | weight_metric | 90.72 | kg | + + + +---------+ | 2021-01-08 00:00 | weight_standard | 200 | lb | + + + +---------+ | 2021-02-04 00:00 | BMI | 34.8 | kg/m2 | + + + +---------+ | 2021-02-04 00:00 | BP_diastolic | 102 | mmHg | + + + +---------+ | 2021-02-04 00:00 | BP_diastolic | 103 | mmHg | + + + +---------+ | 2021-02-04 00:00 | BP_systolic | 177 | mmHg | + + + +---------+ | 2021-02-04 00:00 | BSA | 2.02 | m2 | + + + +---------+ | 2021-02-04 00:00 | heart_rate | 70 | /min | + + + +---------+ | 2021-02-04 00:00 | heart_rate | 72 | /min | + + + +---------+ | 2021-02-04 00:00 | height_metric | 165.1 | cm | + + + +---------+ | 2021-02-04 00:00 | height_standard | 65 | in | + + + +---------+ | 2021-02-04 00:00 | temperature_metric | 36.33 | C | | | | | | + + + +---------+ | 2021-02-04 00:00 | | 97.4 | F | | | temperature_standar | | | | | d | | | + + + +---------+ | 2021-02-04 00:00 | weight_metric | 94.8 | kg | + + + +---------+ | 2021-02-04 00:00 | weight_standard | 209 | lb | + + + +---------+ | 2022-01-01 00:00 | BP_diastolic | 72 | mmHg | + + + +---------+ | 2022-01-01 00:00 | BP_systolic | 122 | mmHg | + + + +---------+ | 2022-01-01 00:00 | heart_rate | 89 | /min | + + + +---------+ | 2022-01-01 00:00 | o2_saturation | 100 | % | + + + +---------+ | 2022-01-01 00:00 | respiration_rate | 18 | /min | + + + +---------+ | 2022-01-01 00:00 | temperature_metric | 37.11 | C | | | | | | + + + +---------+ | 2022-01-01 00:00 | | 98.8 | F | | | temperature_standar | | | | | d | | | + + + +---------+ | 2022-01-12 00:00 | BMI | 36.3 | kg/m2 | + + + +---------+ | 2022-01-12 00:00 | BSA | 2.05 | m2 | + + + +---------+ | 2022-01-12 00:00 | height_metric | 165.1 | cm | + + + +---------+ | 2022-01-12 00:00 | height_standard | 65 | in | + + + +---------+ | 2022-01-12 00:00 | weight_metric | 98.88 | kg | + + + +---------+ | 2022-01-12 00:00 | weight_standard | 218 | lb | + + + +---------+ | 2022-01-15 00:00 | BMI | 36.2 | kg/m2 | + + + +---------+ | 2022-01-15 00:00 | BP_diastolic | 75 | mmHg | + + + +---------+ | 2022-01-15 00:00 | BP_systolic | 128 | mmHg | + + + +---------+ | 2022-01-15 00:00 | heart_rate | 92 | /min | + + + +---------+ | 2022-01-15 00:00 | height_metric | 165.1 | cm | + + + +---------+ | 2022-01-15 00:00 | height_standard | 65 | in | + + + +---------+ | 2022-01-15 00:00 | o2_saturation | 100 | % | + + + +---------+ | 2022-01-15 00:00 | respiration_rate | 18 | /min | + + + +---------+ | 2022-01-15 00:00 | temperature_metric | 36.39 | C | | | | | | + + + +---------+ | 2022-01-15 00:00 | | 97.5 | F | | | temperature_standar | | | | | d | | | + + + +---------+ | 2022-01-15 00:00 | weight_metric | 98.63 | kg | + + + +---------+ | 2022-01-15 00:00 | weight_standard | 217.44 | lb | + + + +---------+ | 2022-01-19 00:00 | BP_diastolic | 87 | mmHg | + + + +---------+ | 2022-01-19 00:00 | BP_systolic | 150 | mmHg | + + + +---------+ | 2022-01-19 00:00 | heart_rate | 99 | /min | + + + +---------+ | 2022-01-19 00:00 | o2_saturation | 100 | % | + + + +---------+ | 2022-01-19 00:00 | respiration_rate | 16 | /min | + + + +---------+ | 2022-01-19 00:00 | temperature_metric | 36.33 | C | | | | | | + + + +---------+ | 2022-01-19 00:00 | | 97.4 | F | | | temperature_standar | | | | | d | | | + + + +---------+ | 2022-02-08 00:00 | BP_diastolic | 63 | mmHg | + + + +---------+ | 2022-02-08 00:00 | BP_systolic | 125 | mmHg | + + + +---------+ | 2022-02-08 00:00 | heart_rate | 87 | /min | + + + +---------+ | 2022-02-08 00:00 | o2_saturation | 95 | % | + + + +---------+ | 2022-02-08 00:00 | respiration_rate | 16 | /min | + + + +---------+ | 2022-02-08 00:00 | temperature_metric | 35.94 | C | | | | | | + + + +---------+ | 2022-02-08 00:00 | | 96.7 | F | | | temperature_standar | | | | | d | | | + + + +---------+ | 2022-02-17 00:00 | BMI | 36.2 | kg/m2 | + + + +---------+ | 2022-02-17 00:00 | height_metric | 165.1 | cm | + + + +---------+ | 2022-02-17 00:00 | height_standard | 65 | in | + + + +---------+ | 2022-02-17 00:00 | weight_metric | 98.71 | kg | + + + +---------+ | 2022-02-17 00:00 | weight_metric | 98.72 | kg | + + + +---------+ | 2022-02-17 00:00 | weight_standard | 217.62 | lb | + + + +---------+ | 2022-02-17 00:00 | weight_standard | 217.63 | lb | + + + +---------+ | 2022-02-18 00:00 | BP_diastolic | 58 | mmHg | + + + +---------+ | 2022-02-18 00:00 | BP_systolic | 120 | mmHg | + + + +---------+ | 2022-02-18 00:00 | heart_rate | 74 | /min | + + + +---------+ | 2022-02-18 00:00 | o2_saturation | 98 | % | + + + +---------+ | 2022-02-18 00:00 | respiration_rate | 16 | /min | + + + +---------+ | 2022-02-18 00:00 | temperature_metric | 36.83 | C | | | | | | + + + +---------+ | 2022-02-18 00:00 | | 98.3 | F | | | temperature_standar | | | | | d | | | + + + +---------+ | 2022-03-16 00:00 | BMI | 36.2 | kg/m2 | + + + +---------+ | 2022-03-16 00:00 | height_metric | 165.1 | cm | + + + +---------+ | 2022-03-16 00:00 | height_standard | 65 | in | + + + +---------+ | 2022-03-16 00:00 | weight_metric | 98.7 | kg | + + + +---------+ | 2022-03-16 00:00 | weight_standard | 217.6 | lb | + + + +---------+ | 2022-03-21 00:00 | BP_diastolic | 67 | mmHg | + + + +---------+ | 2022-03-21 00:00 | BP_systolic | 113 | mmHg | + + + +---------+ | 2022-03-21 00:00 | heart_rate | 85 | /min | + + + +---------+ | 2022-03-21 00:00 | o2_saturation | 99 | % | + + + +---------+ | 2022-03-21 00:00 | respiration_rate | 18 | /min | + + + +---------+ | 2022-03-21 00:00 | temperature_metric | 36.39 | C | | | | | | + + + +---------+ | 2022-03-21 00:00 | | 97.5 | F | | | temperature_standar | | | | | d | | | + + + +---------+ | 2022-05-06 00:00 | BP_diastolic | 79 | mmHg | + + + +---------+ | 2022-05-06 00:00 | BP_systolic | 113 | mmHg | + + + +---------+ | 2022-05-06 00:00 | heart_rate | 84 | /min | + + + +---------+ | 2022-05-06 00:00 | o2_saturation | 100 | % | + + + +---------+ | 2022-05-06 00:00 | respiration_rate | 16 | /min | + + + +---------+ | 2022-05-06 00:00 | temperature_metric | 37 | C | | | | | | + + + +---------+ | 2022-05-06 00:00 | | 98.6 | F | | | temperature_standar | | | | | d | | | + + + +---------+ | 2022-05-09 00:00 | BMI | 35.9 | kg/m2 | + + + +---------+ | 2022-05-09 00:00 | BP_diastolic | 62 | mmHg | + + + +---------+ | 2022-05-09 00:00 | BP_systolic | 103 | mmHg | + + + +---------+ | 2022-05-09 00:00 | heart_rate | 71 | /min | + + + +---------+ | 2022-05-09 00:00 | height_metric | 165.1 | cm | + + + +---------+ | 2022-05-09 00:00 | height_standard | 65 | in | + + + +---------+ | 2022-05-09 00:00 | o2_saturation | 100 | % | + + + +---------+ | 2022-05-09 00:00 | respiration_rate | 17 | /min | + + + +---------+ | 2022-05-09 00:00 | temperature_metric | 36.89 | C | | | | | | + + + +---------+ | 2022-05-09 00:00 | | 98.4 | F | | | temperature_standar | | | | | d | | | + + + +---------+ | 2022-05-09 00:00 | weight_metric | 97.81 | kg | + + + +---------+ | 2022-05-09 00:00 | weight_standard | 215.63 | lb | + + + +---------+ | 2022-06-07 00:00 | BMI | 36.0 | kg/m2 | + + + +---------+ | 2022-06-07 00:00 | BP_diastolic | 52 | mmHg | + + + +---------+ | 2022-06-07 00:00 | BP_systolic | 98 | mmHg | + + + +---------+ | 2022-06-07 00:00 | heart_rate | 81 | /min | + + + +---------+ | 2022-06-07 00:00 | height_metric | 165.1 | cm | + + + +---------+ | 2022-06-07 00:00 | height_standard | 65 | in | + + + +---------+ | 2022-06-07 00:00 | o2_saturation | 99 | % | + + + +---------+ | 2022-06-07 00:00 | respiration_rate | 14 | /min | + + + +---------+ | 2022-06-07 00:00 | temperature_metric | 36 | C | | | | | | + + + +---------+ | 2022-06-07 00:00 | | 96.8 | F | | | temperature_standar | | | | | d | | | + + + +---------+ | 2022-06-07 00:00 | weight_metric | 98 | kg | + + + +---------+ | 2022-06-07 00:00 | weight_standard | 216.05 | lb | + + + +---------+ | 2022-09-14 00:00 | BMI | 35.0 | kg/m2 | + + + +---------+ | 2022-09-14 00:00 | height_metric | 165.1 | cm | + + + +---------+ | 2022-09-14 00:00 | height_standard | 65 | in | + + + +---------+ | 2022-09-14 00:00 | weight_metric | 95.45 | kg | + + + +---------+ | 2022-09-14 00:00 | weight_standard | 210.43 | lb | + + + +---------+ | 2022-09-20 00:00 | BP_diastolic | 57 | mmHg | + + + +---------+ | 2022-09-20 00:00 | BP_systolic | 128 | mmHg | + + + +---------+ | 2022-09-20 00:00 | heart_rate | 84 | /min | + + + +---------+ | 2022-09-20 00:00 | o2_saturation | 99 | % | + + + +---------+ | 2022-09-20 00:00 | respiration_rate | 16 | /min | + + + +---------+ | 2022-09-20 00:00 | temperature_metric | 36.11 | C | | | | | | + + + +---------+ | 2022-09-20 00:00 | | 97 | F | | | temperature_standar | | | | | d | | | + + + +---------+ | 2022-09-29 00:00 | BMI | 35.1 | kg/m2 | + + + +---------+ | 2022-09-29 00:00 | BP_diastolic | 64 | mmHg | + + + +---------+ | 2022-09-29 00:00 | BP_systolic | 98 | mmHg | + + + +---------+ | 2022-09-29 00:00 | heart_rate | 71 | /min | + + + +---------+ | 2022-09-29 00:00 | height_metric | 165.1 | cm | + + + +---------+ | 2022-09-29 00:00 | height_standard | 65 | in | + + + +---------+ | 2022-09-29 00:00 | o2_saturation | 100 | % | + + + +---------+ | 2022-09-29 00:00 | respiration_rate | 14 | /min | + + + +---------+ | 2022-09-29 00:00 | temperature_metric | 36.72 | C | | | | | | + + + +---------+ | 2022-09-29 00:00 | | 98.1 | F | | | temperature_standar | | | | | d | | | + + + +---------+ | 2022-09-29 00:00 | weight_metric | 95.54 | kg | + + + +---------+ | 2022-09-29 00:00 | weight_standard | 210.63 | lb | + + + +---------+ | 2022-10-04 00:00 | BMI | 35.2 | kg/m2 | + + + +---------+ | 2022-10-04 00:00 | BP_diastolic | 79 | mmHg | + + + +---------+ | 2022-10-04 00:00 | BP_systolic | 130 | mmHg | + + + +---------+ | 2022-10-04 00:00 | heart_rate | 78 | /min | + + + +---------+ | 2022-10-04 00:00 | height_metric | 165.1 | cm | + + + +---------+ | 2022-10-04 00:00 | height_standard | 65 | in | + + + +---------+ | 2022-10-04 00:00 | o2_saturation | 99 | % | + + + +---------+ | 2022-10-04 00:00 | respiration_rate | 19 | /min | + + + +---------+ | 2022-10-04 00:00 | temperature_metric | 36.72 | C | | | | | | + + + +---------+ | 2022-10-04 00:00 | | 98.1 | F | | | temperature_standar | | | | | d | | | + + + +---------+ | 2022-10-04 00:00 | weight_metric | 95.91 | kg | + + + +---------+ | 2022-10-04 00:00 | weight_standard | 211.44 | lb | + + + +---------+ | 2022-10-04 00:00 | weight_standard | 211.45 | lb | + + + +---------+ | 2022-10-19 00:00 | BMI | 34.9 | kg/m2 | + + + +---------+ | 2022-10-19 00:00 | BSA | 2.0 | m2 | + + + +---------+ | 2022-10-19 00:00 | BSA | 2.02 | m2 | + + + +---------+ | 2022-10-19 00:00 | height_metric | 165.1 | cm | + + + +---------+ | 2022-10-19 00:00 | height_standard | 65 | in | + + + +---------+ | 2022-10-19 00:00 | weight_metric | 95.25 | kg | + + + +---------+ | 2022-10-19 00:00 | weight_standard | 210 | lb | + + + +---------+ | 2022-11-10 00:00 | BP_diastolic | 67 | mmHg | + + + +---------+ | 2022-11-10 00:00 | BP_systolic | 112 | mmHg | + + + +---------+ | 2022-11-10 00:00 | heart_rate | 92 | /min | + + + +---------+ | 2022-11-10 00:00 | o2_saturation | 99 | % | + + + +---------+ | 2022-11-10 00:00 | respiration_rate | 16 | /min | + + + +---------+ | 2022-11-10 00:00 | temperature_metric | 36.44 | C | | | | | | + + + +---------+ | 2022-11-10 00:00 | | 97.6 | F | | | temperature_standar | | | | | d | | | + + + +---------+ | 2022-11-11 00:00 | BMI | 34.4 | kg/m2 | + + + +---------+ | 2022-11-11 00:00 | BP_diastolic | 82 | mmHg | + + + +---------+ | 2022-11-11 00:00 | BP_systolic | 133 | mmHg | + + + +---------+ | 2022-11-11 00:00 | heart_rate | 88 | /min | + + + +---------+ | 2022-11-11 00:00 | height_metric | 165.1 | cm | + + + +---------+ | 2022-11-11 00:00 | height_standard | 65 | in | + + + +---------+ | 2022-11-11 00:00 | o2_saturation | 98 | % | + + + +---------+ | 2022-11-11 00:00 | respiration_rate | 18 | /min | + + + +---------+ | 2022-11-11 00:00 | temperature_metric | 36.67 | C | | | | | | + + + +---------+ | 2022-11-11 00:00 | | 98 | F | | | temperature_standar | | | | | d | | | + + + +---------+ | 2022-11-11 00:00 | weight_metric | 93.64 | kg | + + + +---------+ | 2022-11-11 00:00 | weight_standard | 206.44 | lb | + + + +---------+ | 2022-11-14 00:00 | BMI | 34.4 | kg/m2 | + + + +---------+ | 2022-11-14 00:00 | BP_diastolic | 66 | mmHg | + + + +---------+ | 2022-11-14 00:00 | BP_systolic | 94 | mmHg | + + + +---------+ | 2022-11-14 00:00 | heart_rate | 85 | /min | + + + +---------+ | 2022-11-14 00:00 | height_metric | 165.1 | cm | + + + +---------+ | 2022-11-14 00:00 | height_standard | 65 | in | + + + +---------+ | 2022-11-14 00:00 | o2_saturation | 99 | % | + + + +---------+ | 2022-11-14 00:00 | respiration_rate | 15 | /min | + + + +---------+ | 2022-11-14 00:00 | temperature_metric | 36.83 | C | | | | | | + + + +---------+ | 2022-11-14 00:00 | | 98.3 | F | | | temperature_standar | | | | | d | | | + + + +---------+ | 2022-11-14 00:00 | weight_metric | 93.64 | kg | + + + +---------+ | 2022-11-14 00:00 | weight_standard | 206.44 | lb | + + + +---------+ | 2022-12-23 00:00 | BMI | 34.2 | kg/m2 | + + + +---------+ | 2022-12-23 00:00 | height_metric | 165.1 | cm | + + + +---------+ | 2022-12-23 00:00 | height_standard | 65 | in | + + + +---------+ | 2022-12-23 00:00 | weight_metric | 93.18 | kg | + + + +---------+ | 2022-12-23 00:00 | weight_standard | 205.43 | lb | + + + +---------+ | 2022-12-27 00:00 | BP_diastolic | 71 | mmHg | + + + +---------+ | 2022-12-27 00:00 | BP_systolic | 121 | mmHg | + + + +---------+ | 2022-12-27 00:00 | heart_rate | 78 | /min | + + + +---------+ | 2022-12-27 00:00 | o2_saturation | 99 | % | + + + +---------+ | 2022-12-27 00:00 | respiration_rate | 16 | /min | + + + +---------+ | 2022-12-27 00:00 | temperature_metric | 36.39 | C | | | | | | + + + +---------+ | 2022-12-27 00:00 | | 97.5 | F | | | temperature_standar | | | | | d | | | + + + +---------+ | 2023-01-18 00:00 | BMI | 34.9 | 1 | + + + +---------+ | 2023-01-18 00:00 | BSA | 2 | 1 | + + + +---------+ | 2023-01-18 00:00 | height_metric | 165.1 | cm | + + + +---------+ | 2023-01-18 00:00 | height_standard | 65 | in | + + + +---------+ | 2023-01-18 00:00 | weight_metric | 95.25 | kg | + + + +---------+ | 2023-01-18 00:00 | weight_standard | 210 | lb | + + + +---------+ | 2023-03-14 00:00 | BMI | 34.1 | kg/m2 | + + + +---------+ | 2023-03-14 00:00 | BP_diastolic | 61 | mmHg | + + + +---------+ | 2023-03-14 00:00 | BP_diastolic | 82 | mmHg | + + + +---------+ | 2023-03-14 00:00 | BP_systolic | 121 | mmHg | + + + +---------+ | 2023-03-14 00:00 | BP_systolic | 125 | mmHg | + + + +---------+ | 2023-03-14 00:00 | heart_rate | 87 | /min | + + + +---------+ | 2023-03-14 00:00 | height_metric | 165.1 | cm | + + + +---------+ | 2023-03-14 00:00 | height_standard | 65 | in | + + + +---------+ | 2023-03-14 00:00 | o2_saturation | 99 | % | + + + +---------+ | 2023-03-14 00:00 | respiration_rate | 16 | /min | + + + +---------+ | 2023-03-14 00:00 | temperature_metric | 37.17 | C | | | | | | + + + +---------+ | 2023-03-14 00:00 | | 98.9 | F | | | temperature_standar | | | | | d | | | + + + +---------+ | 2023-03-14 00:00 | weight_metric | 92.99 | kg | + + + +---------+ | 2023-03-14 00:00 | weight_standard | 205 | lb | + + + +---------+ | 2023-04-22 00:00 | BMI | 31.6 | 1 | + + + +---------+ | 2023-04-22 00:00 | BSA | 1.9 | 1 | + + + +---------+ | 2023-04-22 00:00 | height_metric | 165.1 | cm | + + + +---------+ | 2023-04-22 00:00 | height_standard | 65 | in | + + + +---------+ | 2023-04-22 00:00 | weight_metric | 86.18 | kg | + + + +---------+ | 2023-04-22 00:00 | weight_standard | 190 | lb | + + + +---------+ | 2023-05-09 00:00 | BMI | 32.7 | kg/m2 | + + + +---------+ | 2023-05-09 00:00 | BP_diastolic | 50 | mmHg | + + + +---------+ | 2023-05-09 00:00 | BP_systolic | 96 | mmHg | + + + +---------+ | 2023-05-09 00:00 | heart_rate | 77 | /min | + + + +---------+ | 2023-05-09 00:00 | height_metric | 165.1 | cm | + + + +---------+ | 2023-05-09 00:00 | height_standard | 65 | in | + + + +---------+ | 2023-05-09 00:00 | o2_saturation | 96 | % | + + + +---------+ | 2023-05-09 00:00 | respiration_rate | 14 | /min | + + + +---------+ | 2023-05-09 00:00 | temperature_metric | 37 | C | | | | | | + + + +---------+ | 2023-05-09 00:00 | | 98.6 | F | | | temperature_standar | | | | | d | | | + + + +---------+ | 2023-05-09 00:00 | weight_metric | 89 | kg | + + + +---------+ | 2023-05-09 00:00 | weight_standard | 196.21 | lb | + + + +---------+ | 2023-05-16 00:00 | BMI | 33.5 | kg/m2 | + + + +---------+ | 2023-05-16 00:00 | BP_diastolic | 79 | mmHg | + + + +---------+ | 2023-05-16 00:00 | BP_systolic | 105 | mmHg | + + + +---------+ | 2023-05-16 00:00 | heart_rate | 68 | /min | + + + +---------+ | 2023-05-16 00:00 | height_metric | 165.1 | cm | + + + +---------+ | 2023-05-16 00:00 | height_standard | 65 | in | + + + +---------+ | 2023-05-16 00:00 | o2_saturation | 99 | % | + + + +---------+ | 2023-05-16 00:00 | respiration_rate | 16 | /min | + + + +---------+ | 2023-05-16 00:00 | temperature_metric | 36.67 | C | | | | | | + + + +---------+ | 2023-05-16 00:00 | | 98 | F | | | temperature_standar | | | | | d | | | + + + +---------+ | 2023-05-16 00:00 | weight_metric | 91.37 | kg | + + + +---------+ | 2023-05-16 00:00 | weight_standard | 201.44 | lb | + + + +---------+"
--- OUTSIDE RECORDS SUMMARY | ~2023-07-03 | XMS | Continuity of Care Document ---
Demographics + + + | Address | [address] | | | [place] [address] | + + + | Preferred Language | Unknown | + + + | Marital Status | Never | + + + | Scientologist Affiliation | Unknown | + + + | Race | White | + + + | Ethnic Group | Not or | + + + Author + + + | Author | [facility] | + + + | Organization | [facility] | + + + | Address | [address] | | | [place] [address] | + + + | Phone | | + + + Care Team Providers + + + + | Care Sports Book Server Name | Role | Phone | [...] + | 1992 00:00 | DTP | [facility] BRANDT. | | | | | [...] | 2008-10-02 00:00 | Meningococcus | [facility] BRANDT. | | | | | + + + + | 2008-10-02 00:00 | Tdap | [facility] BRANDT. | | | | | + + + + | 2015-02-22 00:00 | Tdap | [facility] POWERS. | | | | | + + + + | 2022-05-21 00:00 | Influenza, Seasonal, | [facility] | | | Injectable, Preservative | | | | Free | | + + + + | 2022-06-08 00:00 | Influenza, Seasonal, | [facility] | | | Injectable, Preservative | | | | Free | | + + + + | 2022-09-20 00:00 | Influenza, Seasonal, | [facility] | | | Injectable, Preservative | | | | Free | | + + + + | 2022-09-29 00:00 | Influenza, Seasonal, | [facility] | | | Injectable, Preservative | | | | Free | | + + + + | 2022-10-04 00:00 | Influenza, Seasonal, | [facility] | | | Injectable, Preservative | | | | Free | | + + + + | 2022-11-12 00:00 | Influenza, Seasonal, | [facility] | | | Injectable, Preservative | | | | Free | | + + + + | 2022-11-14 00:00 | Influenza, Seasonal, | [facility] | | | Injectable, Preservative | | | | Free | | + + + + | 2022-12-27 00:00 | Influenza, Seasonal, | [facility] | | | Injectable, Preservative | | | | Free | | + + + + | 2023-03-14 00:00 | Influenza, Seasonal, | [facility] | | | Injectable, Preservative | | | | Free | | + + + + | 2023-05-09 00:00 | Influenza, Seasonal, | [facility] | | | Injectable, Preservative | | | | Free | | + + + + | 2023-05-16 00:00 | Influenza, Seasonal, | [facility] | | | Injectable, Preservative | | | | Free | | + + + + | 2022-05-21 00:00 | Influenza, Injectable, | [facility] | | | Quadrivalent, Preservative | | + + + + | 2022-06-08 00:00 | Influenza, Injectable, | [facility] | | | Quadrivalent, Preservative | | + + + + | 2022-09-20 00:00 | Influenza, Injectable, | [facility] | | | Quadrivalent, Preservative | | + + + + | 2022-09-29 00:00 | Influenza, Injectable, | [facility] | | | Quadrivalent, Preservative | | + + + + | 2022-10-04 00:00 | Influenza, Injectable, | [facility] | | | Quadrivalent, Preservative | | + + + + | 2022-11-12 00:00 | Influenza, Injectable, | [facility] | | | Quadrivalent, Preservative | | + + + + | 2022-11-14 00:00 | Influenza, Injectable, | [facility] | | | Quadrivalent, Preservative | | + + + + | 2022-12-27 00:00 | Influenza, Injectable, | [facility] | | | Quadrivalent, Preservative | | + + + + | 2023-03-14 00:00 | Influenza, Injectable, | [facility] | | | Quadrivalent, Preservative | | + + + + | 2023-05-09 00:00 | Influenza, Injectable, | [facility] | | | Quadrivalent, Preservative | | + + + + | 2023-05-16 00:00 | Influenza, Injectable, | [facility] | | | Quadrivalent, Preservative | | + + + + | 2015-02-22 00:00 | DTaP | [facility] | + + + + | 2015-02-22 00:00 | DTaP | [facility] | + + + + | 2015-02-22 00:00 | DTaP | [facility] | + + + + | 2015-02-22 00:00 | DTaP | [facility] | + + + + | 2015-02-22 00:00 | DTaP | [facility] | + + + + | 2015-02-22 00:00 | DTaP | [facility] | + + + + | 2005-05-12 00:00 | jeffery Orta/tex (2 dose) | [facility] | | | | | + + + + Medications + + + + | date | description | facility | + + + + | 2022-05-21 00:00 | DEXTROMETHORPHAN | [facility] | | | HBR/QUINIDINE | | + + + + | 2022-06-08 00:00 | DEXTROMETHORPHAN | [facility] | | | HBR/QUINIDINE | | + + + + | 2022-09-20 00:00 | DEXTROMETHORPHAN | [facility] | | | HBR/QUINIDINE | | + + + + | 2022-09-29 00:00 | DEXTROMETHORPHAN | [facility] | | | HBR/QUINIDINE | | + + + + | 2022-10-04 00:00 | DEXTROMETHORPHAN | [facility] | | | HBR/QUINIDINE | | + + + + | 2022-11-12 00:00 | DEXTROMETHORPHAN | [facility] | | | HBR/QUINIDINE | | + + + + | 2022-11-14 00:00 | DEXTROMETHORPHAN | [facility] | | | HBR/QUINIDINE | | + + + + | 2022-12-27 00:00 | DEXTROMETHORPHAN | [facility] | | | HBR/QUINIDINE | | + + + + | 2023-03-14 00:00 | DEXTROMETHORPHAN | [facility] | | | HBR/QUINIDINE | | + + + + | 2023-05-09 00:00 | DEXTROMETHORPHAN | [facility] | | | HBR/QUINIDINE | | + + + + | 2023-05-16 00:00 | DEXTROMETHORPHAN | [facility] | | | HBR/QUINIDINE | | + + + + | 2022-05-21 00:00 | LORAZEPAM | [facility] | + + + + | 2022-06-08 00:00 | LORAZEPAM | [facility] | + + + + | 2022-09-20 00:00 | LORAZEPAM | [facility] | + + + + | 2022-09-29 00:00 | LORAZEPAM | [facility] | + + + + | 2022-10-04 00:00 | LORAZEPAM | [facility] | + + + + | 2022-11-12 00:00 | LORAZEPAM | [facility] | + + + + | 2022-11-14 00:00 | LORAZEPAM | [facility] | + + + + | 2022-12-27 00:00 | LORAZEPAM | [facility] | + + + + | 2023-03-14 00:00 | LORAZEPAM | [facility] | + + + + | 2023-05-09 00:00 | LORAZEPAM | [facility] | + + + + | 2023-05-16 00:00 | LORAZEPAM | [facility] | + + + + | 2022-05-21 00:00 | ONDANSETRON | [facility] | + + + + | 2022-06-08 00:00 | ONDANSETRON | [facility] | + + + + | 2022-09-20 00:00 | ONDANSETRON | [facility] | + + + + | 2022-09-29 00:00 | ONDANSETRON | [facility] | + + + + | 2022-10-04 00:00 | ONDANSETRON | [facility] | + + + + | 2022-11-12 00:00 | ONDANSETRON | [facility] | + + + + | 2022-11-14 00:00 | ONDANSETRON | [facility] | + + + + | 2022-12-27 00:00 | ONDANSETRON | [facility] | + + + + | 2023-03-14 00:00 | ONDANSETRON | [facility] | + + + + | 2023-05-09 00:00 | ONDANSETRON | [facility] | + + + + | 2023-05-16 00:00 | ONDANSETRON | [facility] | + + + + | 2021-05-05 00:00 | OXYCODONE | [facility] | | | HCL/ACETAMINOPHEN | | + + + + | 2021-05-05 00:00 | OXYCODONE | [facility] | | | HCL/ACETAMINOPHEN | | + + + + | 2021-05-05 00:00 | OXYCODONE | [facility] | | | HCL/ACETAMINOPHEN | | + + + + | 2021-05-05 00:00 | OXYCODONE | [facility] | | | HCL/ACETAMINOPHEN | | + + + + | 2021-05-05 00:00 | OXYCODONE | [facility] | | | HCL/ACETAMINOPHEN | | + + + + | 2021-05-05 00:00 | OXYCODONE | [facility] | | | HCL/ACETAMINOPHEN | | + + + + | 2022-05-21 00:00 | OXYCODONE | [facility] | | | HCL/ACETAMINOPHEN | | + + + + | 2022-06-08 00:00 | OXYCODONE | [facility] | | | HCL/ACETAMINOPHEN | | + + + + | 2022-09-20 00:00 | OXYCODONE | [facility] | | | HCL/ACETAMINOPHEN | | + + + + | 2022-09-29 00:00 | OXYCODONE | [facility] | | | HCL/ACETAMINOPHEN | | + + + + | 2022-10-04 00:00 | OXYCODONE | [facility] | | | HCL/ACETAMINOPHEN | | + + + + | 2022-11-12 00:00 | OXYCODONE | [facility] | | | HCL/ACETAMINOPHEN | | + + + + | 2022-11-14 00:00 | OXYCODONE | [facility] | | | HCL/ACETAMINOPHEN | | + + + + | 2022-12-27 00:00 | OXYCODONE | [facility] | | | HCL/ACETAMINOPHEN | | + + + + | 2023-03-14 00:00 | OXYCODONE | [facility] | | | HCL/ACETAMINOPHEN | | + + + + | 2023-05-09 00:00 | OXYCODONE | [facility] | | | HCL/ACETAMINOPHEN | | + + + + | 2023-05-16 00:00 | OXYCODONE | [facility] | | | HCL/ACETAMINOPHEN | | + + + + | 2022-05-21 00:00 | OXYCODONE HCL | [facility] | + + + + | 2022-06-08 00:00 | OXYCODONE HCL | [facility] | + + + + | 2022-09-20 00:00 | OXYCODONE HCL | [facility] | + + + + | 2022-09-29 00:00 | OXYCODONE HCL | [facility] | + + + + | 2022-10-04 00:00 | OXYCODONE HCL | [facility] | + + + + | 2022-11-12 00:00 | OXYCODONE HCL | [facility] | + + + + | 2022-11-14 00:00 | OXYCODONE HCL | [facility] | + + + + | 2022-12-27 00:00 | OXYCODONE HCL | [facility] | + + + + | 2023-03-14 00:00 | OXYCODONE HCL | [facility] | + + + + | 2023-05-09 00:00 | OXYCODONE HCL | [facility] | + + + + | 2023-05-16 00:00 | OXYCODONE HCL | [facility] | + + + + | 2021-07-25 00:00 | OXYCODONE HCL | [facility] | + + + + | 2021-07-25 00:00 | OXYCODONE HCL | [facility] | + + + + | 2021-07-25 00:00 | OXYCODONE HCL | [facility] | + + + + | 2021-07-25 00:00 | OXYCODONE HCL | [facility] | + + + + | 2021-07-25 00:00 | OXYCODONE HCL | [facility] | + + + + | 2021-07-25 00:00 | OXYCODONE HCL | [facility] | + + + + | 2022-05-21 00:00 | OXYCODONE HCL | [facility] | + + + + | 2022-06-08 00:00 | OXYCODONE HCL | [facility] | + + + + | 2022-09-20 00:00 | OXYCODONE HCL | [facility] | + + + + | 2022-09-29 00:00 | OXYCODONE HCL | [facility] | + + + + | 2019-07-13 00:00 | oxycodone hydrochloride 10 | [facility] | | | MG Oral Tablet | | + + + + | 2020-05-02 00:00 | oxycodone hydrochloride 10 | [facility] | | | MG Oral Tablet | | + + + + | 2020-07-16 00:00 | oxycodone hydrochloride 10 | [facility] | | | MG Oral Tablet | | + + + + | 2020-09-26 00:00 | oxycodone hydrochloride 10 | [facility] | | | MG Oral Tablet | | + + + + | 2020-11-28 00:00 | oxycodone hydrochloride 10 | [facility] | | | MG Oral Tablet | | + + + + | 2021-01-08 00:00 | oxycodone hydrochloride 10 | [facility] | | | MG Oral Tablet | | + + + + | 2021-05-06 00:00 | oxycodone hydrochloride 10 | [facility] | | | MG Oral Tablet | | + + + + | 2021-06-09 00:00 | oxycodone hydrochloride 10 | [facility] | | | MG Oral Tablet | | + + + + | 2021-07-23 00:00 | oxycodone hydrochloride 10 | [facility] | | | MG Oral Tablet | | + + + + | 2021-08-18 00:00 | oxycodone hydrochloride 10 | [facility] | | | MG Oral Tablet | | + + + + | 2021-09-23 00:00 | oxycodone hydrochloride 10 | [facility] | | | MG Oral Tablet | | + + + + | 2021-10-28 00:00 | oxycodone hydrochloride 10 | [facility] | | | MG Oral Tablet | | + + + + | 2021-12-03 00:00 | oxycodone hydrochloride 10 | [facility] | | | MG Oral Tablet | | + + + + | 2022-01-05 00:00 | oxycodone hydrochloride 10 | [facility] | | | MG Oral Tablet | | + + + + | 2022-01-12 00:00 | oxycodone hydrochloride 10 | [facility] | | | MG Oral [...] 2022-09-01 00:00 | oxycodone hydrochloride 10 | [facility] | | | MG Oral Tablet | | + + + + | 2022-10-19 00:00 | oxycodone hydrochloride 10 | [facility] | | | MG Oral Tablet | | + + + + | 2023-01-18 00:00 | oxycodone hydrochloride 10 | [facility] | | | MG Oral Tablet | | + + + + | 2022-05-21 00:00 | DORINDA/ME CARROLL/SOD | [facility] | | | PHOS/PHEN/HYOS | | + + + + | 2022-06-08 00:00 | MTH/ME BLUE/SOD | [facility] | | | PHOS/PHEN/HYOS | | + + + + | 2022-09-20 00:00 | MTH/ME BLUE/SOD | [facility] | | | PHOS/PHEN/HYOS | | + + + + | 2022-09-29 00:00 | MTH/ME BLUE/SOD | [facility] | | | PHOS/PHEN/HYOS | | + + + + | 2022-10-04 00:00 | MTH/ME BLUE/SOD | [facility] | | | PHOS/PHEN/HYOS | | + + + + | 2022-11-12 00:00 | MTH/ME BLUE/SOD | [facility] | | | PHOS/PHEN/HYOS | | + + + + | 2022-11-14 00:00 | MTH/ME BLUE/SOD | [facility] | | | PHOS/PHEN/HYOS | | + + + + | 2022-12-27 00:00 | [facility]/ME BLUE/SOD | [facility] | | | PHOS/PHEN/HYOS | | + + + + | 2023-03-14 00:00 | [facility]/ME BLUE/SOD | [facility] | | | PHOS/PHEN/HYOS | | + + + + | 2023-05-09 00:00 | MTH/ME BLUE/SOD | [facility] | | | PHOS/PHEN/HYOS | | + + + + | 2023-05-16 00:00 | DORINDA/ BLUE/SOD | [facility] | | | PHOS/PHEN/HYOS | | + + + + | 2022-05-21 00:00 | METHYLPHENIDATE HCL | [facility] | + + + + | 2022-06-08 00:00 | METHYLPHENIDATE HCL | [facility] | + + + + | 2022-09-20 00:00 | METHYLPHENIDATE HCL | [facility] | + + + + | 2022-09-29 00:00 | METHYLPHENIDATE HCL | [facility] | + + + + | 2022-10-04 00:00 | METHYLPHENIDATE HCL | [facility] | + + + + | 2022-11-12 00:00 | METHYLPHENIDATE HCL | [facility] | + + + + | 2022-11-14 00:00 | METHYLPHENIDATE HCL | [facility] | + + + + | 2022-12-27 00:00 | METHYLPHENIDATE HCL | [facility] | + + + + | 2023-03-14 00:00 | METHYLPHENIDATE HCL | [facility] | + + + + | 2023-05-09 00:00 | METHYLPHENIDATE HCL | [facility] | + + + + | 2023-05-16 00:00 | METHYLPHENIDATE HCL | [facility] | + + + + | 2022-05-21 00:00 | DEXTROMETHORPHAN HBR | [facility] | + + + + | 2022-06-08 00:00 | DEXTROMETHORPHAN HBR | [facility] | + + + + | 2022-09-20 00:00 | DEXTROMETHORPHAN HBR | [facility] | + + + + | 2022-09-29 00:00 | DEXTROMETHORPHAN HBR | [facility] | + + + + | 2022-10-04 00:00 | DEXTROMETHORPHAN HBR | [facility] | + + + + | 2022-11-12 00:00 | DEXTROMETHORPHAN HBR | [facility] | + + + + | 2022-11-14 00:00 | DEXTROMETHORPHAN HBR | [facility] | + + + + | 2022-12-27 00:00 | DEXTROMETHORPHAN HBR | [facility] | + + + + | 2023-03-14 00:00 | DEXTROMETHORPHAN HBR | [facility] | + + + + | 2023-05-09 00:00 | DEXTROMETHORPHAN HBR | [facility] | + + + + | 2023-05-16 00:00 | DEXTROMETHORPHAN HBR | [facility] | + + + + | 2022-05-21 00:00 | GLYCERIN | [facility] | + + + + | 2022-06-08 00:00 | GLYCERIN | [facility] | + + + + | 2022-09-20 00:00 | GLYCERIN | [facility] | + + + + | 2022-09-29 00:00 | GLYCERIN | [facility] | + + + + | 2022-10-04 00:00 | GLYCERIN | [facility] | + + + + | 2022-11-12 00:00 | GLYCERIN | [facility] | + + + + | 2022-11-14 00:00 | GLYCERIN | [facility] | + + + + | 2022-12-27 00:00 | GLYCERIN | [facility] | + + + + | 2023-03-14 00:00 | GLYCERIN | [facility] | + + + + | 2023-05-09 00:00 | GLYCERIN | [facility] | + + + + | 2023-05-16 00:00 | GLYCERIN | [facility] | + + + + | 2022-05-21 00:00 | MELATONIN | [facility] | + + + + | 2022-06-08 00:00 | MELATONIN | [facility] | + + + + | 2022-09-20 00:00 | MELATONIN | [facility] | + + + + | 2022-09-29 00:00 | MELATONIN | [facility] | + + + + | 2022-10-04 00:00 | MELATONIN | [facility] | + + + + | 2022-11-12 00:00 | MELATONIN | [facility] | + + + + | 2022-11-14 00:00 | MELATONIN | [facility] | + + + + | 2022-12-27 00:00 | MELATONIN | [facility] | + + + + | 2023-03-14 00:00 | MELATONIN | [facility] | + + + + | 2023-05-09 00:00 | MELATONIN | [facility] | + + + + | 2023-05-16 00:00 | MELATONIN | [facility] | + + + + | 2020-03-29 00:00 | APIXABAN | [facility] | + + + + | 2020-03-29 00:00 | APIXABAN | [facility] | + + + + | 2020-03-29 00:00 | APIXABAN | [facility] | + + + + | 2020-03-29 00:00 | APIXABAN | [facility] | + + + + | 2020-03-29 00:00 | APIXABAN | [facility] | + + + + | 2020-03-29 00:00 | APIXABAN | [facility] | + + + + | 2020-12-09 00:00 | APIXABAN | [facility] | + + + + | 2020-12-09 00:00 | APIXABAN | [facility] | + + + + | 2020-12-09 00:00 | APIXABAN | [facility] | + + + + | 2020-12-09 00:00 | APIXABAN | [facility] | + + + + | 2020-12-09 00:00 | APIXABAN | [facility] | + + + + | 2020-12-09 00:00 | APIXABAN | [facility] | + + + + | 2022-05-21 00:00 | APIXABAN | [facility] | + + + + | 2022-06-08 00:00 | APIXABAN | [facility] | + + + + | 2022-09-20 00:00 | APIXABAN | [facility] | + + + + | 2022-09-29 00:00 | APIXABAN | [facility] | + + + + | 2022-10-04 00:00 | APIXABAN | [facility] | + + + + | 2022-11-12 00:00 | APIXABAN | [facility] | + + + + | 2022-11-14 00:00 | APIXABAN | [facility] | + + + + | 2022-12-27 00:00 | APIXABAN | [facility] | + + + + | 2023-03-14 00:00 | APIXABAN | [facility] | + + + + | 2023-05-09 00:00 | APIXABAN | [facility] | + + + + | 2023-05-16 00:00 | APIXABAN | [facility] | + + + + | [...] 00:00 | 168 HR buprenorphine 0.015 | [facility] | | | MG/HR Transdermal System | | | | [BuTrans] | | + + + + | 2020-04-17 00:00 | 168 HR buprenorphine 0.015 | [facility] | | | MG/HR [...] 00:00 | 168 HR buprenorphine 0.015 | [facility] | | | MG/HR Transdermal System | | | | [BuTrans] | | + + + + | 2022-05-18 00:00 | 168 HR buprenorphine 0.015 | [facility] | | | MG/HR Transdermal System | | | | [BuTrans] | | + + + + | 2022-05-21 00:00 | NALTREXONE HCL | [facility] | + + + + | 2022-06-08 00:00 | NALTREXONE HCL | [facility] | + + + + | 2022-09-20 00:00 | NALTREXONE HCL | [facility] | + + + + | 2022-09-29 00:00 | NALTREXONE HCL | [facility] | + + + + | 2022-10-04 00:00 | NALTREXONE HCL | [facility] | + + + + | 2022-11-12 00:00 | NALTREXONE HCL | [facility] | + + + + | 2022-11-14 00:00 | NALTREXONE HCL | [facility] | + + + + | 2022-12-27 00:00 | NALTREXONE HCL | [facility] | + + + + | 2023-03-14 00:00 | NALTREXONE HCL | [facility] | + + + + | 2023-05-09 00:00 | NALTREXONE HCL | [facility] | + + + + | 2023-05-16 00:00 | NALTREXONE HCL | [facility] | + + + + | 2022-05-21 00:00 | MELOXICAM | [facility] | + + + + | 2022-06-08 00:00 | MELOXICAM | [facility] | + + + + | 2022-09-20 00:00 | MELOXICAM | [facility] | + + + + | 2022-09-29 00:00 | MELOXICAM | [facility] | + + + + | 2022-10-04 00:00 | MELOXICAM | [facility] | + + + + | 2022-11-12 00:00 | MELOXICAM | [facility] | + + + + | 2022-11-14 00:00 | MELOXICAM | [facility] | + + + + | 2022-12-27 00:00 | MELOXICAM | [facility] | + + + + | 2023-03-14 00:00 | MELOXICAM | [facility] | + + + + | 2023-05-09 00:00 | MELOXICAM | [facility] | + + + + | 2023-05-16 00:00 | MELOXICAM | [facility] | + + + + | 2022-05-21 00:00 | TOPIRAMATE | [facility] | + + + + | 2022-06-08 00:00 | TOPIRAMATE | [facility] | + + + + | 2022-09-20 00:00 | TOPIRAMATE | [facility] | + + + + | 2022-09-29 00:00 | TOPIRAMATE | [facility] | + + + + | 2022-10-04 00:00 | TOPIRAMATE | [facility] | + + + + | 2022-11-12 00:00 | TOPIRAMATE | [facility] | + + + + | 2022-11-14 00:00 | TOPIRAMATE | [facility] | + + + + | 2022-12-27 00:00 | TOPIRAMATE | [facility] | + + + + | 2023-03-14 00:00 | TOPIRAMATE | [facility] | + + + + | 2023-05-09 00:00 | TOPIRAMATE | [facility] | + + + + | 2023-05-16 00:00 | TOPIRAMATE | [facility] | + + + + | 2022-05-21 00:00 | Buprenorphine | [facility] | + + + + | 2022-06-08 00:00 | Buprenorphine | [facility] | + + + + | 2022-09-20 00:00 | Buprenorphine | [facility] | + + + + | 2022-09-29 00:00 | Buprenorphine | [facility] | + + + + | 2022-10-04 00:00 | Buprenorphine | [facility] | + + + + | 2022-11-12 00:00 | Buprenorphine | [facility] | + + + + | 2022-11-14 00:00 | Buprenorphine | [facility] | + + + + | 2022-12-27 00:00 | Buprenorphine | [facility] | + + + + | 2023-03-14 00:00 | Buprenorphine | [facility] | + + + + | 2023-05-09 00:00 | Buprenorphine | [facility] | + + + + | 2023-05-16 00:00 | Buprenorphine | [facility] | + + + + | 2019-08-08 00:00 | Elva 10MCG/HR | [facility] | | | Transdermal Patch Weekly | | + + + + | 2022-05-21 00:00 | BREXPIPRAZOLE | [facility] | + + + + | 2022-06-08 00:00 | BREXPIPRAZOLE | [facility] | + + + + | 2022-09-20 00:00 | BREXPIPRAZOLE | [facility] | + + + + | 2022-09-29 00:00 | BREXPIPRAZOLE | [facility] | + + + + | 2022-10-04 00:00 | BREXPIPRAZOLE | [facility] | + + + + | 2022-11-12 00:00 | BREXPIPRAZOLE | [facility] | + + + + | 2022-11-14 00:00 | BREXPIPRAZOLE | [facility] | + + + + | 2022-12-27 00:00 | BREXPIPRAZOLE | [facility] | + + + + | 2023-03-14 00:00 | BREXPIPRAZOLE | [facility] | + + + + | 2023-05-09 00:00 | BREXPIPRAZOLE | [facility] | + + + + | 2023-05-16 00:00 | BREXPIPRAZOLE | [facility] | + + + + | 2022-05-21 00:00 | KETOROLAC TROMETHAMINE | [facility] | + + + + | 2022-06-08 00:00 | KETOROLAC TROMETHAMINE | [facility] | + + + + | 2022-09-20 00:00 | KETOROLAC TROMETHAMINE | [facility] | + + + + | 2022-09-29 00:00 | KETOROLAC TROMETHAMINE | [facility] | + + + + | 2022-10-04 00:00 | KETOROLAC TROMETHAMINE | [facility] | + + + + | 2022-11-12 00:00 | KETOROLAC TROMETHAMINE | [facility] | + + + + | 2022-11-14 00:00 | KETOROLAC TROMETHAMINE | [facility] | + + + + | 2022-12-27 00:00 | KETOROLAC TROMETHAMINE | [facility] | + + + + | 2023-03-14 00:00 | KETOROLAC TROMETHAMINE | [facility] | + + + + | 2023-05-09 00:00 | KETOROLAC TROMETHAMINE | [facility] | + + + + | 2023-05-16 00:00 | KETOROLAC TROMETHAMINE | [facility] | + + + + | 2020-05-02 00:00 | Eliquis 5 MG Oral Tablet | [facility] | | | | | + + + + | 2020-07-16 00:00 | Promethazine HCl 25 MG/ML | [facility] | | | Injection Solution | | + + + + | 2022-05-21 00:00 | FLUTICASONE PROPIONATE 50 | [facility] | | | MCG | | + + + + | 2022-06-08 00:00 | FLUTICASONE PROPIONATE 50 | [facility] | | | MCG | | + + + + | 2022-09-20 00:00 | FLUTICASONE PROPIONATE 50 | [facility] | | | MCG | | + + + + | 2022-09-29 00:00 | FLUTICASONE PROPIONATE 50 | [facility] | | | MCG | | + + + + | 2022-10-04 00:00 | FLUTICASONE PROPIONATE 50 | [facility] | | | MCG | | + + + + | 2022-11-12 00:00 | FLUTICASONE PROPIONATE 50 | [facility] | | | MCG | | + + + + | 2022-11-14 00:00 | FLUTICASONE PROPIONATE 50 | [facility] | | | MCG | | + + + + | 2022-12-27 00:00 | FLUTICASONE PROPIONATE 50 | [facility] | | | MCG | | + + + + | 2023-03-14 00:00 | FLUTICASONE PROPIONATE 50 | [facility] | | | MCG | | + + + + | 2023-05-09 00:00 | FLUTICASONE PROPIONATE 50 | [facility] | | | MCG | | + + + + | 2023-05-16 00:00 | FLUTICASONE PROPIONATE 50 | [facility] | | | MCG | | [...] 2021-06-24 00:00 | Butrans 15 MCG/HR | [facility] | | | Transdermal Patch Weekly | | + + + + | 2021-09-23 00:00 | Butrans 15 MCG/HR | [facility] | | | Transdermal Patch Weekly | | + + + + | 2022-01-04 00:00 | Butrans 15 MCG/HR | [facility] | | | Transdermal Patch Weekly | | + + + + | 2022-01-05 00:00 | Butrans 15 MCG/HR | [facility] | | | Transdermal Patch Weekly | | + + + + | 2022-01-12 00:00 | Butrans 15 MCG/HR | [facility] | | | Transdermal Patch Weekly | | + + + + | 2022-05-18 00:00 | Butrans 15 MCG/HR | [facility] | | | Transdermal Patch Weekly | | + + + + | 2022-05-21 00:00 | BACLOFEN | [facility] | + + + + | 2022-06-08 00:00 | BACLOFEN | [facility] | + + + + | 2022-09-20 00:00 | BACLOFEN | [facility] | + + + + | 2022-09-29 00:00 | BACLOFEN | [facility] | + + + + | 2022-10-04 00:00 | BACLOFEN | [facility] | + + + + | 2022-11-12 00:00 | BACLOFEN | [facility] | + + + + | 2022-11-14 00:00 | BACLOFEN | [facility] | + + + + | 2022-12-27 00:00 | BACLOFEN | [facility] | + + + + | 2023-03-14 00:00 | BACLOFEN | [facility] | + + + + | 2023-05-09 00:00 | BACLOFEN | [facility] | + + + + | 2023-05-16 00:00 | BACLOFEN | [facility] | + + + + | 2022-05-21 00:00 | LORAZEPAM | [facility] | + + + + | 2022-06-08 00:00 | LORAZEPAM | [facility] | + + + + | 2022-09-20 00:00 | LORAZEPAM | [facility] | + + + + | 2022-09-29 00:00 | LORAZEPAM | [facility] | + + + + | 2022-10-04 00:00 | LORAZEPAM | [facility] | + + + + | 2022-11-12 00:00 | LORAZEPAM | [facility] | + + + + | 2022-11-14 00:00 | LORAZEPAM | [facility] | + + + + | 2022-12-27 00:00 | LORAZEPAM | [facility] | + + + + | 2023-03-14 00:00 | LORAZEPAM | [facility] | + + + + | 2023-05-09 00:00 | LORAZEPAM | [facility] | + + + + | 2023-05-16 00:00 | LORAZEPAM | [facility] | + + + + | 2022-05-21 00:00 | MINOCYCLINE HCL | [facility] | + + + + | 2022-06-08 00:00 | MINOCYCLINE HCL | [facility] | + + + + | 2022-09-20 00:00 | MINOCYCLINE HCL | [facility] | + + + + | 2022-09-29 00:00 | MINOCYCLINE HCL | [facility] | + + + + | 2022-10-04 00:00 | MINOCYCLINE HCL | [facility] | + + + + | 2022-11-12 00:00 | MINOCYCLINE HCL | [facility] | + + + + | 2022-11-14 00:00 | MINOCYCLINE HCL | [facility] | + + + + | 2022-12-27 00:00 | MINOCYCLINE HCL | [facility] | + + + + | 2023-03-14 00:00 | MINOCYCLINE HCL | [facility] | + + + + | 2023-05-09 00:00 | MINOCYCLINE HCL | [facility] | + + + + | 2023-05-16 00:00 | MINOCYCLINE HCL | [facility] | + + + + | 2022-05-21 00:00 | ONDANSETRON HCL | [facility] | + + + + | 2022-06-08 00:00 | ONDANSETRON HCL | [facility] | + + + + | 2022-09-20 00:00 | ONDANSETRON HCL | [facility] | + + + + | 2022-09-29 00:00 | ONDANSETRON HCL | [facility] | + + + + | 2022-10-04 00:00 | ONDANSETRON HCL | [facility] | + + + + | 2022-11-12 00:00 | ONDANSETRON HCL | [facility] | + + + + | 2022-11-14 00:00 | ONDANSETRON HCL | [facility] | + + + + | 2022-12-27 00:00 | ONDANSETRON HCL | [facility] | + + + + | 2023-03-14 00:00 | ONDANSETRON HCL | [facility] | + + + + | 2023-05-09 00:00 | ONDANSETRON HCL | [facility] | + + + + | 2023-05-16 00:00 | ONDANSETRON HCL | [facility] | + + + + | 2022-05-21 00:00 | LAMOTRIGINE | [facility] | + + + + | 2022-06-08 00:00 | LAMOTRIGINE | [facility] | + + + + | 2022-09-20 00:00 | LAMOTRIGINE | [facility] | + + + + | 2022-09-29 00:00 | LAMOTRIGINE | [facility] | + + + + | 2022-10-04 00:00 | LAMOTRIGINE | [facility] | + + + + | 2022-11-12 00:00 | LAMOTRIGINE | [facility] | + + + + | 2022-11-14 00:00 | LAMOTRIGINE | [facility] | + + + + | 2022-12-27 00:00 | LAMOTRIGINE | [facility] | + + + + | 2023-03-14 00:00 | LAMOTRIGINE | [facility] | + + + + | 2023-05-09 00:00 | LAMOTRIGINE | [facility] | + + + + | 2023-05-16 00:00 | LAMOTRIGINE | [facility] | + + + + | 2021-05-05 00:00 | ACETAMINOPHEN | [facility] | + + + + | 2021-05-05 00:00 | ACETAMINOPHEN | [facility] | + + + + | 2021-05-05 00:00 | ACETAMINOPHEN | [facility] | + + + + | 2021-05-05 00:00 | ACETAMINOPHEN | [facility] | + + + + | 2021-05-05 00:00 | ACETAMINOPHEN | [facility] | + + + + | 2021-05-05 00:00 | ACETAMINOPHEN | [facility] | + + + + | [...] 00:00 | Ozempic (1 MG/DOSE) 2 | [facility] | | | MG/1.5ML Subcutaneous | | | | Solution Pen-injector | | + + + + | 2019-07-13 00:00 | DULoxetine HCl Paste | [facility] | | | | | + + + + | 2022-05-21 00:00 | CIPROFLOXACIN HCL | [facility] | + + + + | 2022-06-08 00:00 | CIPROFLOXACIN HCL | [facility] | + + + + | 2022-09-20 00:00 | CIPROFLOXACIN HCL | [facility] | + + + + | 2022-09-29 00:00 | CIPROFLOXACIN HCL | [facility] | + + + + | 2022-10-04 00:00 | CIPROFLOXACIN HCL | [facility] | + + + + | 2022-11-12 00:00 | CIPROFLOXACIN HCL | [facility] | + + + + | 2022-11-14 00:00 | CIPROFLOXACIN HCL | [facility] | + + + + | 2022-12-27 00:00 | CIPROFLOXACIN HCL | [facility] | + + + + | 2023-03-14 00:00 | CIPROFLOXACIN HCL | [facility] | + + + + | 2023-05-09 00:00 | CIPROFLOXACIN HCL | [facility] | + + + + | 2023-05-16 00:00 | CIPROFLOXACIN HCL | [facility] | + + + + | 2022-05-21 00:00 | ALUMINUM CHLORIDE | [facility] | + + + + | 2022-06-08 00:00 | ALUMINUM CHLORIDE | [facility] | + + + + | 2022-09-20 00:00 | ALUMINUM CHLORIDE | [facility] | + + + + | 2022-09-29 00:00 | ALUMINUM CHLORIDE | [facility] | + + + + | 2022-10-04 00:00 | ALUMINUM CHLORIDE | [facility] | + + + + | 2022-11-12 00:00 | ALUMINUM CHLORIDE | [facility] | + + + + | 2022-11-14 00:00 | ALUMINUM CHLORIDE | [facility] | + + + + | 2022-12-27 00:00 | ALUMINUM CHLORIDE | [facility] | + + + + | 2023-03-14 00:00 | ALUMINUM CHLORIDE | [facility] | + + + + | 2023-05-09 00:00 | ALUMINUM CHLORIDE | [facility] | + + + + | 2023-05-16 00:00 | ALUMINUM CHLORIDE | [facility] | + + + + | 2022-05-21 00:00 | LORAZEPAM | [facility] | + + + + | 2022-06-08 00:00 | LORAZEPAM | [facility] | + + + + | 2022-09-20 00:00 | LORAZEPAM | [facility] | + + + + | 2022-09-29 00:00 | LORAZEPAM | [facility] | + + + + | 2022-10-04 00:00 | LORAZEPAM | [facility] | + + + + | 2022-11-12 00:00 | LORAZEPAM | [facility] | + + + + | 2022-11-14 00:00 | LORAZEPAM | [facility] | + + + + | 2022-12-27 00:00 | LORAZEPAM | [facility] | + + + + | 2023-03-14 00:00 | LORAZEPAM | [facility] | + + + + | 2023-05-09 00:00 | LORAZEPAM | [facility] | + + + + | 2023-05-16 00:00 | LORAZEPAM | [facility] | + + + + | 2022-05-21 00:00 | METOCLOPRAMIDE HCL | [facility] | + + + + | 2022-06-08 00:00 | METOCLOPRAMIDE HCL | [facility] | + + + + | 2022-09-20 00:00 | METOCLOPRAMIDE HCL | [facility] | + + + + | 2022-09-29 00:00 | METOCLOPRAMIDE HCL | [facility] | + + + + | 2022-10-04 00:00 | METOCLOPRAMIDE HCL | [facility] | + + + + | 2022-11-12 00:00 | METOCLOPRAMIDE HCL | [facility] | + + + + | 2022-11-14 00:00 | METOCLOPRAMIDE HCL | [facility] | + + + + | 2022-12-27 00:00 | METOCLOPRAMIDE HCL | [facility] | + + + + | 2023-03-14 00:00 | METOCLOPRAMIDE HCL | [facility] | + + + + | 2023-05-09 00:00 | METOCLOPRAMIDE HCL | [facility] | + + + + | 2023-05-16 00:00 | METOCLOPRAMIDE HCL | [facility] | + + + + | 2022-05-21 00:00 | SUCRALFATE | [facility] | + + + + | 2022-06-08 00:00 | SUCRALFATE | [facility] | + + + + | 2022-09-20 00:00 | SUCRALFATE | [facility] | + + + + | 2022-09-29 00:00 | SUCRALFATE | [facility] | + + + + | 2022-10-04 00:00 | SUCRALFATE | [facility] | + + + + | 2022-11-12 00:00 | SUCRALFATE | [facility] | + + + + | 2022-11-14 00:00 | SUCRALFATE | [facility] | + + + + | 2022-12-27 00:00 | SUCRALFATE | [facility] | + + + + | 2023-03-14 00:00 | SUCRALFATE | [facility] | + + + + | 2023-05-09 00:00 | SUCRALFATE | [facility] | + + + + | 2023-05-16 00:00 | SUCRALFATE | [facility] | + + + + | 2022-09-20 00:00 | Semaglutide | [facility] | + + + + | 2022-09-29 00:00 | Semaglutide | [facility] | + + + + | 2022-10-04 00:00 | Semaglutide | [facility] | + + + + | 2022-11-12 00:00 | Semaglutide | [facility] | + + + + | 2022-11-14 00:00 | Semaglutide | [facility] | + + + + | 2022-12-27 00:00 | Semaglutide | [facility] | + + + + | 2023-03-14 00:00 | Semaglutide | [facility] | + + + + | 2023-05-09 00:00 | Semaglutide | [facility] | + + + + | 2023-05-16 00:00 | Semaglutide | [facility] | + + + + | 2022-05-21 00:00 | LAMOTRIGINE | [facility] | + + + + | 2022-06-08 00:00 | LAMOTRIGINE | [facility] | + + + + | 2022-09-20 00:00 | LAMOTRIGINE | [facility] | + + + + | 2022-09-29 00:00 | LAMOTRIGINE | [facility] | + + + + | 2022-10-04 00:00 | LAMOTRIGINE | [facility] | + + + + | 2022-11-12 00:00 | LAMOTRIGINE | [facility] | + + + + | 2022-11-14 00:00 | LAMOTRIGINE | [facility] | + + + + | 2022-12-27 00:00 | LAMOTRIGINE | [facility] | + + + + | 2023-03-14 00:00 | LAMOTRIGINE | [facility] | + + + + | 2023-05-09 00:00 | LAMOTRIGINE | [facility] | + + + + | 2023-05-16 00:00 | LAMOTRIGINE | [facility] | + + + + | 2019-07-13 00:00 | buPROPion HCl 100MG Oral | [facility] | | | Tablet | | + + + + | 2022-05-21 00:00 | ANTOINETTE ROOT | [facility] | + + + + | 2022-06-08 00:00 | ANTOINETTE ROOT | [facility] | + + + + | 2022-09-20 00:00 | ANTOINETTE ROOT | [facility] | + + + + | 2022-09-29 00:00 | ANTOINETTE ROOT | [facility] | + + + + | 2022-10-04 00:00 | ANTOINETTE ROOT | [facility] | + + + + | 2022-11-12 00:00 | ANTOINETTE ROOT | [facility] | + + + + | 2022-11-14 00:00 | ANTOINETTE ROOT | [facility] | + + + + | 2022-12-27 00:00 | ANTOINETTE ROOT | [facility] | + + + + | 2023-03-14 00:00 | ANTOINETTE ROOT | [facility] | + + + + | 2023-05-09 00:00 | ANTOINETTE ROOT | [facility] | + + + + | 2023-05-16 00:00 | ANTOINETTE ROOT | [facility] | + + + + | 2022-05-21 00:00 | FENTANYL (100 MCG/HR) | [facility] | + + + + | 2022-06-08 00:00 | FENTANYL (100 MCG/HR) | [facility] | + + + + | 2022-09-20 00:00 | FENTANYL (100 MCG/HR) | [facility] | + + + + | 2022-09-29 00:00 | FENTANYL (100 MCG/HR) | [facility] | + + + + | 2022-10-04 00:00 | FENTANYL (100 MCG/HR) | [facility] | + + + + | 2022-11-12 00:00 | FENTANYL (100 MCG/HR) | [facility] | + + + + | 2022-11-14 00:00 | FENTANYL (100 MCG/HR) | [facility] | + + + + | 2022-12-27 00:00 | FENTANYL (100 MCG/HR) | [facility] | + + + + | 2023-03-14 00:00 | FENTANYL (100 MCG/HR) | [facility] | + + + + | 2023-05-09 00:00 | FENTANYL (100 MCG/HR) | [facility] | + + + + | 2023-05-16 00:00 | FENTANYL (100 MCG/HR) | [facility] | + + + + | 2022-05-21 00:00 | PANTOPRAZOLE SODIUM | [facility] | + + + + | 2022-06-08 00:00 | PANTOPRAZOLE SODIUM | [facility] | + + + + | 2022-09-20 00:00 | PANTOPRAZOLE SODIUM | [facility] | + + + + | 2022-09-29 00:00 | PANTOPRAZOLE SODIUM | [facility] | + + + + | 2022-10-04 00:00 | PANTOPRAZOLE SODIUM | [facility] | + + + + | 2022-11-12 00:00 | PANTOPRAZOLE SODIUM | [facility] | + + + + | 2022-11-14 00:00 | PANTOPRAZOLE SODIUM | [facility] | + + + + | 2022-12-27 00:00 | PANTOPRAZOLE SODIUM | [facility] | + + + + | 2023-03-14 00:00 | PANTOPRAZOLE SODIUM | [facility] | + + + + | 2023-05-09 00:00 | PANTOPRAZOLE SODIUM | [facility] | + + + + | 2023-05-16 00:00 | PANTOPRAZOLE SODIUM | [facility] | + + + + | 2020-05-02 [...] | oxyCODONE HCl 10 MG Oral | [facility] | | | Tablet | | + + + + | 2021-01-08 00:00 | oxyCODONE HCl 10 MG Oral | [facility] | | | Tablet | | + + + + | 2021-05-06 00:00 | oxyCODONE HCl 10 MG Oral | [facility] | | | Tablet | | + + + + | 2021-06-09 00:00 | oxyCODONE HCl 10 MG Oral | [facility] | | | Tablet [...] + | 2022-05-21 00:00 | AMOXICILLIN | [facility] | + + + + | 2022-06-08 00:00 | AMOXICILLIN | [facility] | + + + + | 2022-09-20 00:00 | AMOXICILLIN | [facility] | + + + + | 2022-09-29 00:00 | AMOXICILLIN | [facility] | + + + + | 2022-10-04 00:00 | AMOXICILLIN | [facility] | + + + + | 2022-11-12 00:00 | AMOXICILLIN | [facility] | + + + + | 2022-11-14 00:00 | AMOXICILLIN | [facility] | + + + + | 2022-12-27 00:00 | AMOXICILLIN | [facility] | + + + + | 2023-03-14 00:00 | AMOXICILLIN | [facility] | + + + + | 2023-05-09 00:00 | AMOXICILLIN | [facility] | + + + + | 2023-05-16 00:00 | AMOXICILLIN | [facility] | + + + + | 2022-05-21 00:00 | CIPROFLOXACIN HCL | [facility] | + + + + | 2022-06-08 00:00 | CIPROFLOXACIN HCL | [facility] | + + + + | 2022-09-20 00:00 | CIPROFLOXACIN HCL | [facility] | + + + + | 2022-09-29 00:00 | CIPROFLOXACIN HCL | [facility] | + + + + | 2022-10-04 00:00 | CIPROFLOXACIN HCL | [facility] | + + + + | 2022-11-12 00:00 | CIPROFLOXACIN HCL | [facility] | + + + + | 2022-11-14 00:00 | CIPROFLOXACIN HCL | [facility] | + + + + | 2022-12-27 00:00 | CIPROFLOXACIN HCL | [facility] | + + + + | 2023-03-14 00:00 | CIPROFLOXACIN HCL | [facility] | + + + + | 2023-05-09 00:00 | CIPROFLOXACIN HCL | [facility] | + + + + | 2023-05-16 00:00 | CIPROFLOXACIN HCL | [facility] | + + + + | 2022-05-21 00:00 | FOLIC ACID | [facility] | + + + + | 2022-06-08 00:00 | FOLIC ACID | [facility] | + + + + | 2022-09-20 00:00 | FOLIC ACID | [facility] | + + + + | 2022-09-29 00:00 | FOLIC ACID | [facility] | + + + + | 2022-10-04 00:00 | FOLIC ACID | [facility] | + + + + | 2022-11-12 00:00 | FOLIC ACID | [facility] | + + + + | 2022-11-14 00:00 | FOLIC ACID | [facility] | + + + + | 2022-12-27 00:00 | FOLIC ACID | [facility] | + + + + | 2023-03-14 00:00 | FOLIC ACID | [facility] | + + + + | 2023-05-09 00:00 | FOLIC ACID | [facility] | + + + + | 2023-05-16 00:00 | FOLIC ACID | [facility] | + + + + | 2022-05-21 00:00 | GRANISETRON HCL | [facility] | + + + + | 2022-06-08 00:00 | GRANISETRON HCL | [facility] | + + + + | 2022-09-20 00:00 | GRANISETRON HCL | [facility] | + + + + | 2022-09-29 00:00 | GRANISETRON HCL | [facility] | + + + + | 2022-10-04 00:00 | GRANISETRON HCL | [facility] | + + + + | 2022-11-12 00:00 | GRANISETRON HCL | [facility] | + + + + | 2022-11-14 00:00 | GRANISETRON HCL | [facility] | + + + + | 2022-12-27 00:00 | GRANISETRON HCL | [facility] | + + + + | 2023-03-14 00:00 | GRANISETRON HCL | [facility] | + + + + | 2023-05-09 00:00 | GRANISETRON HCL | [facility] | + + + + | 2023-05-16 00:00 | GRANISETRON HCL | [facility] | + + + + | 2022-05-21 00:00 | IBUPROFEN | [facility] | + + + + | 2022-06-08 00:00 | IBUPROFEN | [facility] | + + + + | 2022-09-20 00:00 | IBUPROFEN | [facility] | + + + + | 2022-09-29 00:00 | IBUPROFEN | [facility] | + + + + | 2022-10-04 00:00 | IBUPROFEN | [facility] | + + + + | 2022-11-12 00:00 | IBUPROFEN | [facility] | + + + + | 2022-11-14 00:00 | IBUPROFEN | [facility] | + + + + | 2022-12-27 00:00 | IBUPROFEN | [facility] | + + + + | 2023-03-14 00:00 | IBUPROFEN | [facility] | + + + + | 2023-05-09 00:00 | IBUPROFEN | [facility] | + + + + | 2023-05-16 00:00 | IBUPROFEN | [facility] | + + + + | 2021-07-25 00:00 | LEVOFLOXACIN | [facility] | + + + + | 2021-07-25 00:00 | LEVOFLOXACIN | [facility] | + + + + | 2021-07-25 00:00 | LEVOFLOXACIN | [facility] | + + + + | 2021-07-25 00:00 | LEVOFLOXACIN | [facility] | + + + + | 2021-07-25 00:00 | LEVOFLOXACIN | [facility] | + + + + | 2021-07-25 00:00 | LEVOFLOXACIN | [facility] | + + + + | 2022-05-21 00:00 | METOCLOPRAMIDE HCL | [facility] | + + + + | 2022-06-08 00:00 | METOCLOPRAMIDE HCL | [facility] | + + + + | 2022-09-20 00:00 | METOCLOPRAMIDE HCL | [facility] | + + + + | 2022-09-29 00:00 | METOCLOPRAMIDE HCL | [facility] | + + + + | 2022-10-04 00:00 | METOCLOPRAMIDE HCL | [facility] | + + + + | 2022-11-12 00:00 | METOCLOPRAMIDE HCL | [facility] | + + + + | 2022-11-14 00:00 | METOCLOPRAMIDE HCL | [facility] | + + + + | 2022-12-27 00:00 | METOCLOPRAMIDE HCL | [facility] | + + + + | 2023-03-14 00:00 | METOCLOPRAMIDE HCL | [facility] | + + + + | 2023-05-09 00:00 | METOCLOPRAMIDE HCL | [facility] | + + + + | 2023-05-16 00:00 | METOCLOPRAMIDE HCL | [facility] | + + + + | 2022-09-20 00:00 | ONDANSETRON | [facility] | + + + + | 2022-09-29 00:00 | ONDANSETRON | [facility] | + + + + | 2022-05-21 00:00 | BELLADONNA ALKALOIDS/OPIUM | [facility] | | | | | + + + + | 2022-06-08 00:00 | BELLADONNA ALKALOIDS/OPIUM | [facility] | | | | | + + + + | 2022-09-20 00:00 | BELLADONNA ALKALOIDS/OPIUM | [facility] | | | | | + + + + | 2022-09-29 00:00 | BELLADONNA ALKALOIDS/OPIUM | [facility] | | | | | + + + + | 2022-10-04 00:00 | BELLADONNA ALKALOIDS/OPIUM | [facility] | | | | | + + + + | 2022-11-12 00:00 | BELLADONNA ALKALOIDS/OPIUM | [facility] | | | | | + + + + | 2022-11-14 00:00 | BELLADONNA ALKALOIDS/OPIUM | [facility] | | | | | + + + + | 2022-12-27 00:00 | BELLADONNA ALKALOIDS/OPIUM | [facility] | | | | | + + + + | 2023-03-14 00:00 | BELLADONNA ALKALOIDS/OPIUM | [facility] | | | | | + + + + | 2023-05-09 00:00 | BELLADONNA ALKALOIDS/OPIUM | [facility] | | | | | + + + + | 2023-05-16 00:00 | BELLADONNA ALKALOIDS/OPIUM | [facility] | | | | | + + + + | 2016-08-05 00:00 | SENNOSIDES | [facility] | + + + + | 2016-08-05 00:00 | SENNOSIDES | [facility] | + + + + | 2016-08-05 00:00 | SENNOSIDES | [facility] | + + + + | 2016-08-05 00:00 | SENNOSIDES | [facility] | + + + + | 2016-08-05 00:00 | SENNOSIDES | [facility] | + + + + | 2016-08-05 00:00 | SENNOSIDES | [facility] | + + + + | 2022-05-21 00:00 | CYANOCOBALAMIN (VITAMIN | [facility] | | | B-) | | + + + + | 2022-06-08 00:00 | CYANOCOBALAMIN (VITAMIN | [facility] | | | B-) | | + + + + | 2022-09-20 00:00 | CYANOCOBALAMIN (VITAMIN | [facility] | | | B-12) | | + + + + | 2022-09-29 00:00 | CYANOCOBALAMIN (VITAMIN | [facility] | | | B-12) | | + + + + | 2022-10-04 00:00 | CYANOCOBALAMIN (VITAMIN | [facility] | | | B-12) | | + + + + | 2022-11-12 00:00 | CYANOCOBALAMIN (VITAMIN | [facility] | | | B-12) | | + + + + | 2022-11-14 00:00 | CYANOCOBALAMIN (VITAMIN | [facility] | | | B-12) | | + + + + | 2022-12-27 00:00 | CYANOCOBALAMIN (VITAMIN | [facility] | | | B-12) | | + + + + | 2023-03-14 00:00 | CYANOCOBALAMIN (VITAMIN | [facility] | | | B-12) | | + + + + | 2023-05-09 00:00 | CYANOCOBALAMIN (VITAMIN | [facility] | | | B-12) | | + + + + | 2023-05-16 00:00 | CYANOCOBALAMIN (VITAMIN | [facility] | | | B-12) | | + + + + | 2022-05-21 00:00 | PANTOPRAZOLE SODIUM | [facility] | + + + + | 2022-06-08 00:00 | PANTOPRAZOLE SODIUM | [facility] | + + + + | 2022-09-20 00:00 | PANTOPRAZOLE SODIUM | [facility] | + + + + | 2022-09-29 00:00 | PANTOPRAZOLE SODIUM | [facility] | + + + + | 2022-10-04 00:00 | PANTOPRAZOLE SODIUM | [facility] | + + + + | 2022-11-12 00:00 | PANTOPRAZOLE SODIUM | [facility] | + + + + | 2022-11-14 00:00 | PANTOPRAZOLE SODIUM | [facility] | + + + + | 2022-12-27 00:00 | PANTOPRAZOLE SODIUM | [facility] | + + + + | 2023-03-14 00:00 | PANTOPRAZOLE SODIUM | [facility] | + + + + | 2023-05-09 00:00 | PANTOPRAZOLE SODIUM | [facility] | + + + + | 2023-05-16 00:00 | PANTOPRAZOLE SODIUM | [facility] | + + + + | 2022-05-21 00:00 | SUCRALFATE | [facility] | + + + + | 2022-06-08 00:00 | SUCRALFATE | [facility] | + + + + | 2022-09-20 00:00 | SUCRALFATE | [facility] | + + + + | 2022-09-29 00:00 | SUCRALFATE | [facility] | + + + + | 2022-10-04 00:00 | SUCRALFATE | [facility] | + + + + | 2022-11-12 00:00 | SUCRALFATE | [facility] | + + + + | 2022-11-14 00:00 | SUCRALFATE | [facility] | + + + + | 2022-12-27 00:00 | SUCRALFATE | [facility] | + + + + | 2023-03-14 00:00 | SUCRALFATE | [facility] | + + + + | 2023-05-09 00:00 | SUCRALFATE | [facility] | + + + + | 2023-05-16 00:00 | SUCRALFATE | [facility] | + + + + | 2023-05-16 00:00 | Atomoxetine HCl | [facility] | + + + + | 2022-05-21 00:00 | LACTULOSE | [facility] | + + + + | 2022-06-08 00:00 | LACTULOSE | [facility] | + + + + | 2022-09-20 00:00 | LACTULOSE | [facility] | + + + + | 2022-09-29 00:00 | LACTULOSE | [facility] | + + + + | 2022-10-04 00:00 | LACTULOSE | [facility] | + + + + | 2022-11-12 00:00 | LACTULOSE | [facility] | + + + + | 2022-11-14 00:00 | LACTULOSE | [facility] | + + + + | 2022-12-27 00:00 | LACTULOSE | [facility] | + + + + | 2023-03-14 00:00 | LACTULOSE | [facility] | + + + + | 2023-05-09 00:00 | LACTULOSE | [facility] | + + + + | 2023-05-16 00:00 | LACTULOSE | [facility] | + + + + | 2019-07-13 00:00 | Topiramate 25MG Oral | [facility] | | | Tablet | | + + + + | 2022-05-21 00:00 | NITROFURANTOIN MONOHYD | [facility] | | | MACROCR | | + + + + | 2022-06-08 00:00 | NITROFURANTOIN MONOHYD | [facility] | | | MACROCR | | + + + + | 2022-09-20 00:00 | NITROFURANTOIN MONOHYD | [facility] | | | MACROCR | | + + + + | 2022-09-29 00:00 | NITROFURANTOIN MONOHYD | [facility] | | | MACROCR | | + + + + | 2022-10-04 00:00 | NITROFURANTOIN MONOHYD | [facility] | | | MACROCR | | + + + + | 2022-11-12 00:00 | NITROFURANTOIN MONOHYD | [facility] | | | MACROCR | | + + + + | 2022-11-14 00:00 | NITROFURANTOIN MONOHYD | [facility] | | | MACROCR | | + + + + | 2022-12-27 00:00 | NITROFURANTOIN MONOHYD | [facility] | | | MACROCR | | + + + + | 2023-03-14 00:00 | NITROFURANTOIN MONOHYD | [facility] | | | MACROCR | | + + + + | 2023-05-09 00:00 | NITROFURANTOIN MONOHYD | [facility] | | | MACROCR | | + + + + | 2023-05-16 00:00 | NITROFURANTOIN MONOHYD | [facility] | | | MACROCR | | + + + + | 2022-05-21 00:00 | DULOXETINE HCL | [facility] | + + + + | 2022-06-08 00:00 | DULOXETINE HCL | [facility] | + + + + | 2022-09-20 00:00 | DULOXETINE HCL | [facility] | + + + + | 2022-09-29 00:00 | DULOXETINE HCL | [facility] | + + + + | 2022-10-04 00:00 | DULOXETINE HCL | [facility] | + + + + | 2022-11-12 00:00 | DULOXETINE HCL | [facility] | + + + + | 2022-11-14 00:00 | DULOXETINE HCL | [facility] | + + + + | 2022-12-27 00:00 | DULOXETINE HCL | [facility] | + + + + | 2023-03-14 00:00 | DULOXETINE HCL | [facility] | + + + + | 2023-05-09 00:00 | DULOXETINE HCL | [facility] | + + + + | 2023-05-16 00:00 | DULOXETINE HCL | [facility] | + + + + | 2022-05-21 00:00 | DULOXETINE HCL | [facility] | + + + + | 2022-06-08 00:00 | DULOXETINE HCL | [facility] | + + + + | 2022-09-20 00:00 | DULOXETINE HCL | [facility] | + + + + | 2022-09-29 00:00 | DULOXETINE HCL | [facility] | + + + + | 2022-10-04 00:00 | DULOXETINE HCL | [facility] | + + + + | 2022-11-12 00:00 | DULOXETINE HCL | [facility] | + + + + | 2022-11-14 00:00 | DULOXETINE HCL | [facility] | + + + + | 2022-12-27 00:00 | DULOXETINE HCL | [facility] | + + + + | 2023-03-14 00:00 | DULOXETINE HCL | [facility] | + + + + | 2023-05-09 00:00 | DULOXETINE HCL | [facility] | + + + + | 2023-05-16 00:00 | DULOXETINE HCL | [facility] | + + + + | 2017-09-27 00:00 | PREGABALIN | [facility] | + + + + | 2017-09-27 00:00 | PREGABALIN | [facility] | + + + + | 2017-09-27 00:00 | PREGABALIN | [facility] | + + + + | 2017-09-27 00:00 | PREGABALIN | [facility] | + + + + | 2017-09-27 00:00 | PREGABALIN | [facility] | + + + + | 2017-09-27 00:00 | PREGABALIN | [facility] | + + + + | 2017-09-27 00:00 | PREGABALIN | [facility] | + + + + | 2017-09-27 00:00 | PREGABALIN | [facility] | + + + + | 2017-09-27 00:00 | PREGABALIN | [facility] | + + + + | 2017-09-27 00:00 | PREGABALIN | [facility] | + + + + | 2017-09-27 00:00 | PREGABALIN | [facility] | + + + + | 2017-09-27 00:00 | PREGABALIN | [facility] | + + + + | 2022-05-21 00:00 | PREGABALIN | [facility] | + + + + | 2022-06-08 00:00 | PREGABALIN | [facility] | + + + + | 2022-09-20 00:00 | PREGABALIN | [facility] | + + + + | 2022-09-29 00:00 | PREGABALIN | [facility] | + + + + | 2022-10-04 00:00 | PREGABALIN | [facility] | + + + + | 2022-11-12 00:00 | PREGABALIN | [facility] | + + + + | 2022-11-14 00:00 | PREGABALIN | [facility] | + + + + | 2022-12-27 00:00 | PREGABALIN | [facility] | + + + + | 2023-03-14 00:00 | PREGABALIN | [facility] | + + + + | 2023-05-09 00:00 | PREGABALIN | [facility] | + + + + | 2023-05-16 00:00 | PREGABALIN | [facility] | + + + + | 2019-09-11 00:00 | [place] 5-325 MG Oral Tablet | [facility] | | | | | + + + + | 2022-05-21 00:00 | ALBUTEROL SULFATE | [facility] | + + + + | 2022-06-08 00:00 | ALBUTEROL SULFATE | [facility] | + + + + | 2022-09-20 00:00 | ALBUTEROL SULFATE | [facility] | + + + + | 2022-09-29 00:00 | ALBUTEROL SULFATE | [facility] | + + + + | 2022-10-04 00:00 | ALBUTEROL SULFATE | [facility] | + + + + | 2022-11-12 00:00 | ALBUTEROL SULFATE | [facility] | + + + + | 2022-11-14 00:00 | ALBUTEROL SULFATE | [facility] | + + + + | 2022-12-27 00:00 | ALBUTEROL SULFATE | [facility] | + + + + | 2023-03-14 00:00 | ALBUTEROL SULFATE | [facility] | + + + + | 2023-05-09 00:00 | ALBUTEROL SULFATE | [facility] | + + + + | 2023-05-16 00:00 | ALBUTEROL SULFATE | [facility] | + + + + | 2022-01-12 00:00 | Lovenox 120 MG/0.8ML | [facility] | | | Subcutaneous Solution | | + + + + | 2022-05-21 00:00 | LEVONORGESTREL | [facility] | + + + + | 2022-06-08 00:00 | LEVONORGESTREL | [facility] | + + + + | 2022-09-20 00:00 | LEVONORGESTREL | [facility] | + + + + | 2022-09-29 00:00 | LEVONORGESTREL | [facility] | + + + + | 2022-10-04 00:00 | LEVONORGESTREL | [facility] | + + + + | 2022-11-12 00:00 | LEVONORGESTREL | [facility] | + + + + | 2022-11-14 00:00 | LEVONORGESTREL | [facility] | + + + + | 2022-12-27 00:00 | LEVONORGESTREL | [facility] | + + + + | 2023-03-14 00:00 | LEVONORGESTREL | [facility] | + + + + | 2023-05-09 00:00 | LEVONORGESTREL | [facility] | + + + + | 2023-05-16 00:00 | LEVONORGESTREL | [facility] | + + + + | 2015-02-22 00:00 | AMOXICILLIN/POTASSIUM CLAV | [facility] | | | | | + + + + | 2015-02-22 00:00 | AMOXICILLIN/POTASSIUM CLAV | [facility] | | | | | + + + + | 2015-02-22 00:00 | AMOXICILLIN/POTASSIUM CLAV | [facility] | | | | | + + + + | 2015-02-22 00:00 | AMOXICILLIN/POTASSIUM CLAV | [facility] | | | | | + + + + | 2015-02-22 00:00 | AMOXICILLIN/POTASSIUM CLAV | [facility] | | | | | + + + + | 2015-02-22 00:00 | AMOXICILLIN/POTASSIUM CLAV | [facility] | | | | | + + + + | 2022-05-21 00:00 | CYCLOBENZAPRINE HCL | [facility] | + + + + | 2022-06-08 00:00 | CYCLOBENZAPRINE HCL | [facility] | + + + + | 2022-09-20 00:00 | CYCLOBENZAPRINE HCL | [facility] | + + + + | 2022-09-29 00:00 | CYCLOBENZAPRINE HCL | [facility] | + + + + | 2022-10-04 00:00 | CYCLOBENZAPRINE HCL | [facility] | + + + + | 2022-11-12 00:00 | CYCLOBENZAPRINE HCL | [facility] | + + + + | 2022-11-14 00:00 | CYCLOBENZAPRINE HCL | [facility] | + + + + | 2022-12-27 00:00 | CYCLOBENZAPRINE HCL | [facility] | + + + + | 2023-03-14 00:00 | CYCLOBENZAPRINE HCL | [facility] | + + + + | 2023-05-09 00:00 | CYCLOBENZAPRINE HCL | [facility] | + + + + | 2023-05-16 00:00 | CYCLOBENZAPRINE HCL | [facility] | + + + + | 2017-09-27 00:00 | CYCLOBENZAPRINE HCL | [facility] | + + + + | 2017-09-27 00:00 | CYCLOBENZAPRINE HCL | [facility] | + + + + | 2017-09-27 00:00 | CYCLOBENZAPRINE HCL | [facility] | + + + + | 2017-09-27 00:00 | CYCLOBENZAPRINE HCL | [facility] | + + + + | 2017-09-27 00:00 | CYCLOBENZAPRINE HCL | [facility] | + + + + | 2017-09-27 00:00 | CYCLOBENZAPRINE HCL | [facility] | + + + + | 2022-05-21 00:00 | CYCLOBENZAPRINE HCL | [facility] | + + + + | 2022-06-08 00:00 | CYCLOBENZAPRINE HCL | [facility] | + + + + | 2022-09-20 00:00 | CYCLOBENZAPRINE HCL | [facility] | + + + + | 2022-09-29 00:00 | CYCLOBENZAPRINE HCL | [facility] | + + + + | 2022-10-04 00:00 | CYCLOBENZAPRINE HCL | [facility] | + + + + | 2022-11-12 00:00 | CYCLOBENZAPRINE HCL | [facility] | + + + + | 2022-11-14 00:00 | CYCLOBENZAPRINE HCL | [facility] | + + + + | 2022-12-27 00:00 | CYCLOBENZAPRINE HCL | [facility] | + + + + | 2023-03-14 00:00 | CYCLOBENZAPRINE HCL | [facility] | + + + + | 2023-05-09 00:00 | CYCLOBENZAPRINE HCL | [facility] | + + + + | 2023-05-16 00:00 | CYCLOBENZAPRINE HCL | [facility] | + + + + | 2016-06-27 00:00 | KETOROLAC TROMETHAMINE | [facility] | + + + + | 2016-06-27 00:00 | KETOROLAC TROMETHAMINE | [facility] | + + + + | 2016-06-27 00:00 | KETOROLAC TROMETHAMINE | [facility] | + + + + | 2016-06-27 00:00 | KETOROLAC TROMETHAMINE | [facility] | + + + + | 2016-06-27 00:00 | KETOROLAC TROMETHAMINE | [facility] | + + + + | 2016-06-27 00:00 | KETOROLAC TROMETHAMINE | [facility] | + + + + | 2022-05-21 00:00 | KETOROLAC TROMETHAMINE | [facility] | + + + + | 2022-06-08 00:00 | KETOROLAC TROMETHAMINE | [facility] | + + + + | 2022-09-20 00:00 | KETOROLAC TROMETHAMINE | [facility] | + + + + | 2022-09-29 00:00 | KETOROLAC TROMETHAMINE | [facility] | + + + + | 2022-10-04 00:00 | KETOROLAC TROMETHAMINE | [facility] | + + + + | 2022-11-12 00:00 | KETOROLAC TROMETHAMINE | [facility] | + + + + | 2022-11-14 00:00 | KETOROLAC TROMETHAMINE | [facility] | + + + + | 2022-12-27 00:00 | KETOROLAC TROMETHAMINE | [facility] | + + + + | 2023-03-14 00:00 | KETOROLAC TROMETHAMINE | [facility] | + + + + | 2023-05-09 00:00 | KETOROLAC TROMETHAMINE | [facility] | + + + + | 2023-05-16 00:00 | KETOROLAC TROMETHAMINE | [facility] | + + + + | 2022-05-21 00:00 | IMIPRAMINE HCL | [facility] | + + + + | 2022-06-08 00:00 | IMIPRAMINE HCL | [facility] | + + + + | 2022-09-20 00:00 | IMIPRAMINE HCL | [facility] | + + + + | 2022-09-29 00:00 | IMIPRAMINE HCL | [facility] | + + + + | 2022-10-04 00:00 | IMIPRAMINE HCL | [facility] | + + + + | 2022-11-12 00:00 | IMIPRAMINE HCL | [facility] | + + + + | 2022-11-14 00:00 | IMIPRAMINE HCL | [facility] | + + + + | 2022-12-27 00:00 | IMIPRAMINE HCL | [facility] | + + + + | 2023-03-14 00:00 | IMIPRAMINE HCL | [facility] | + + + + | 2023-05-09 00:00 | IMIPRAMINE HCL | [facility] | + + + + | 2023-05-16 00:00 | IMIPRAMINE HCL | [facility] | + + + + | 2018-10-07 00:00 | | [facility] | | | SULFAMETHOXAZOLE/TRIMETHOPR | | | | IM DS | | + + + + | 2018-10-07 00:00 | | [facility] | | | SULFAMETHOXAZOLE/TRIMETHOPR | | | | IM DS | | + + + + | 2018-10-07 00:00 | | [facility] | | | SULFAMETHOXAZOLE/TRIMETHOPR | | | | IM DS | | + + + + | 2018-10-07 00:00 | | [facility] | | | SULFAMETHOXAZOLE/TRIMETHOPR | | | | IM DS | | + + + + | 2018-10-07 00:00 | | [facility] | | | SULFAMETHOXAZOLE/TRIMETHOPR | | | | IM DS | | + + + + | 2018-10-07 00:00 | | [facility] | | | SULFAMETHOXAZOLE/TRIMETHOPR | | | | IM DS | | + + + + | 2022-05-21 00:00 | Enoxaparin Sodium | [facility] | + + + + | 2022-06-08 00:00 | Enoxaparin Sodium | [facility] | + + + + | 2022-09-20 00:00 | Enoxaparin Sodium | [facility] | + + + + | 2022-09-29 00:00 | Enoxaparin Sodium | [facility] | + + + + | 2022-10-04 00:00 | Enoxaparin Sodium | [facility] | + + + + | 2022-11-12 00:00 | Enoxaparin Sodium | [facility] | + + + + | 2022-11-14 00:00 | Enoxaparin Sodium | [facility] | + + + + | 2022-12-27 00:00 | Enoxaparin Sodium | [facility] | + + + + | 2023-03-14 00:00 | Enoxaparin Sodium | [facility] | + + + + | 2023-05-09 00:00 | Enoxaparin Sodium | [facility] | + + + + | 2023-05-16 00:00 | Enoxaparin Sodium | [facility] | + + + + | 2022-05-21 00:00 | ENOXAPARIN SODIUM | [facility] | + + + + | 2022-06-08 00:00 | ENOXAPARIN SODIUM | [facility] | + + + + | 2022-09-20 00:00 | ENOXAPARIN SODIUM | [facility] | + + + + | 2022-09-29 00:00 | ENOXAPARIN SODIUM | [facility] | + + + + | 2022-10-04 00:00 | ENOXAPARIN SODIUM | [facility] | + + + + | 2022-11-12 00:00 | ENOXAPARIN SODIUM | [facility] | + + + + | 2022-11-14 00:00 | ENOXAPARIN SODIUM | [facility] | + + + + | 2022-12-27 00:00 | ENOXAPARIN SODIUM | [facility] | + + + + | 2023-03-14 00:00 | ENOXAPARIN SODIUM | [facility] | + + + + | 2023-05-09 00:00 | ENOXAPARIN SODIUM | [facility] | + + + + | 2023-05-16 00:00 | ENOXAPARIN SODIUM | [facility] | + + + + | 2022-01-12 00:00 | 0.8 ML enoxaparin sodium | [facility] | | | 150 MG/ML Prefilled Syringe | | | | [Lovenox] | | + + + + | 2022-05-21 00:00 | TRAZODONE HCL | [facility] | + + + + | 2022-06-08 00:00 | TRAZODONE HCL | [facility] | + + + + | 2022-09-20 00:00 | TRAZODONE HCL | [facility] | + + + + | 2022-09-29 00:00 | TRAZODONE HCL | [facility] | + + + + | 2022-10-04 00:00 | TRAZODONE HCL | [facility] | + + + + | 2022-11-12 00:00 | TRAZODONE HCL | [facility] | + + + + | 2022-11-14 00:00 | TRAZODONE HCL | [facility] | + + + + | 2022-12-27 00:00 | TRAZODONE HCL | [facility] | + + + + | 2023-03-14 00:00 | TRAZODONE HCL | [facility] | + + + + | 2023-05-09 00:00 | TRAZODONE HCL | [facility] | + + + + | 2023-05-16 00:00 | TRAZODONE HCL | [facility] | + + + + | 2022-05-21 00:00 | HYDROCODONE | [facility] | | | BIT/ACETAMINOPHEN | | + + + + | 2022-06-08 00:00 | HYDROCODONE | [facility] | | | BIT/ACETAMINOPHEN | | + + + + | 2022-09-20 00:00 | HYDROCODONE | [facility] | | | BIT/ACETAMINOPHEN | | + + + + | 2022-09-29 00:00 | HYDROCODONE | [facility] | | | BIT/ACETAMINOPHEN | | + + + + | 2022-10-04 00:00 | HYDROCODONE | [facility] | | | BIT/ACETAMINOPHEN | | + + + + | 2022-11-12 00:00 | HYDROCODONE | [facility] | | | BIT/ACETAMINOPHEN | | + + + + | 2022-11-14 00:00 | HYDROCODONE | [facility] | | | BIT/ACETAMINOPHEN | | + + + + | 2022-12-27 00:00 | HYDROCODONE | [facility] | | | BIT/ACETAMINOPHEN | | + + + + | 2023-03-14 00:00 | HYDROCODONE | [facility] | | | BIT/ACETAMINOPHEN | | + + + + | 2023-05-09 00:00 | HYDROCODONE | [facility] | | | BIT/ACETAMINOPHEN | | + + + + | 2023-05-16 00:00 | HYDROCODONE | [facility] | | | BIT/ACETAMINOPHEN | | + + + + | 2018-10-07 00:00 | HYDROCODONE/APAP | [facility] | | | (10-325MG) | | + + + + | 2018-10-07 00:00 | HYDROCODONE/APAP | [facility] | | | (10-325MG) | | + + + + | 2018-10-07 00:00 | HYDROCODONE/APAP | [facility] | | | (10-325MG) | | + + + + | 2018-10-07 00:00 | HYDROCODONE/APAP | [facility] | | | (10-325MG) | | + + + + | 2018-10-07 00:00 | HYDROCODONE/APAP | [facility] | | | (10-325MG) | | + + + + | 2018-10-07 00:00 | HYDROCODONE/APAP | [facility] | | | (10-325MG) | | + + + + | 2018-12-31 00:00 | HYDROCODONE/APAP | [facility] | | | (10-325MG) | | + + + + | 2018-12-31 00:00 | HYDROCODONE/APAP | [facility] | | | (10-325MG) | | + + + + | 2018-12-31 00:00 | HYDROCODONE/APAP | [facility] | | | (10-325MG) | | + + + + | 2018-12-31 00:00 | HYDROCODONE/APAP | [facility] | | | (10-325MG) | | + + + + | 2018-12-31 00:00 | HYDROCODONE/APAP | [facility] | | | (10-325MG) | | + + + + | 2018-12-31 00:00 | HYDROCODONE/APAP | [facility] | | | (10-325MG) | | + + + + | 2022-05-21 00:00 | HYDROCODONE/APAP | [facility] | | | (10-325MG) | | + + + + | 2022-06-08 00:00 | HYDROCODONE/APAP | [facility] | | | (10-325MG) | | + + + + | 2022-09-20 00:00 | HYDROCODONE/APAP | [facility] | | | (10-325MG) | | + + + + | 2022-09-29 00:00 | HYDROCODONE/APAP | [facility] | | | (10-325MG) | | + + + + | 2022-10-04 00:00 | HYDROCODONE/APAP | [facility] | | | (10-325MG) | | + + + + | 2022-11-12 00:00 | HYDROCODONE/APAP | [facility] | | | (10-325MG) | | + + + + | 2022-11-14 00:00 | HYDROCODONE/APAP | [facility] | | | (10-325MG) | | + + + + | 2022-12-27 00:00 | HYDROCODONE/APAP | [facility] | | | (10-325MG) | | + + + + | 2023-03-14 00:00 | HYDROCODONE/APAP | [facility] | | | (10-325MG) | | + + + + | 2023-05-09 00:00 | HYDROCODONE/APAP | [facility] | | | (10-325MG) | | + + + + | 2023-05-16 00:00 | HYDROCODONE/APAP | [facility] | | | (10-325MG) | | + + + + | 2022-05-21 00:00 | HYDROCODONE | [facility] | | | BIT/ACETAMINOPHEN | | + + + + | 2022-06-08 00:00 | HYDROCODONE | [facility] | | | BIT/ACETAMINOPHEN | | + + + + | 2022-09-20 00:00 | HYDROCODONE | [facility] | | | BIT/ACETAMINOPHEN | | + + + + | 2022-09-29 00:00 | HYDROCODONE | [facility] | | | BIT/ACETAMINOPHEN | | + + + + | 2022-10-04 00:00 | HYDROCODONE | [facility] | | | BIT/ACETAMINOPHEN | | + + + + | 2022-11-12 00:00 | HYDROCODONE | [facility] | | | BIT/ACETAMINOPHEN | | + + + + | 2022-11-14 00:00 | HYDROCODONE | [facility] | | | BIT/ACETAMINOPHEN | | + + + + | 2022-12-27 00:00 | HYDROCODONE | [facility] | | | BIT/ACETAMINOPHEN | | + + + + | 2023-03-14 00:00 | HYDROCODONE | [facility] | | | BIT/ACETAMINOPHEN | | + + + + | 2023-05-09 00:00 | HYDROCODONE | [facility] | | | BIT/ACETAMINOPHEN | | + + + + | 2023-05-16 00:00 | HYDROCODONE | [facility] | | | BIT/ACETAMINOPHEN | | + + + + | 2019-09-11 00:00 | acetaminophen 325 MG / | [facility] | | | hydrocodone bitartrate 5 MG | | | | Oral Tablet [[place]] | | + + + + | 2022-05-21 00:00 | ALBUTEROL SULFATE | [facility] | + + + + | 2022-06-08 00:00 | ALBUTEROL SULFATE | [facility] | + + + + | 2022-09-20 00:00 | ALBUTEROL SULFATE | [facility] | + + + + | 2022-09-29 00:00 | ALBUTEROL SULFATE | [facility] | + + + + | 2022-10-04 00:00 | ALBUTEROL SULFATE | [facility] | + + + + | 2022-11-12 00:00 | ALBUTEROL SULFATE | [facility] | + + + + | 2022-11-14 00:00 | ALBUTEROL SULFATE | [facility] | + + + + | 2022-12-27 00:00 | ALBUTEROL SULFATE | [facility] | + + + + | 2023-03-14 00:00 | ALBUTEROL SULFATE | [facility] | + + + + | 2023-05-09 00:00 | ALBUTEROL SULFATE | [facility] | + + + + | 2023-05-16 00:00 | ALBUTEROL SULFATE | [facility] | + + + + | 2017-01-05 00:00 | KETOROLAC TROMETHAMINE | [facility] | + + + + | 2017-01-05 00:00 | KETOROLAC TROMETHAMINE | [facility] | + + + + | 2017-01-05 00:00 | KETOROLAC TROMETHAMINE | [facility] | + + + + | 2017-01-05 00:00 | KETOROLAC TROMETHAMINE | [facility] | + + + + | 2017-01-05 00:00 | KETOROLAC TROMETHAMINE | [facility] | + + + + | 2017-01-05 00:00 | KETOROLAC TROMETHAMINE | [facility] | + + + + | 2022-05-21 00:00 | KETOROLAC TROMETHAMINE | [facility] | + + + + | 2022-06-08 00:00 | KETOROLAC TROMETHAMINE | [facility] | + + + + | 2022-09-20 00:00 | KETOROLAC TROMETHAMINE | [facility] | + + + + | 2022-09-29 00:00 | KETOROLAC TROMETHAMINE | [facility] | + + + + | 2022-10-04 00:00 | KETOROLAC TROMETHAMINE | [facility] | + + + + | 2022-11-12 00:00 | KETOROLAC TROMETHAMINE | [facility] | + + + + | 2022-11-14 00:00 | KETOROLAC TROMETHAMINE | [facility] | + + + + | 2022-12-27 00:00 | KETOROLAC TROMETHAMINE | [facility] | + + + + | 2023-03-14 00:00 | KETOROLAC TROMETHAMINE | [facility] | + + + + | 2023-05-09 00:00 | KETOROLAC TROMETHAMINE | [facility] | + + + + | 2023-05-16 00:00 | KETOROLAC TROMETHAMINE | [facility] | + + + + | 2016-06-27 00:00 | KETOROLAC TROMETHAMINE | [facility] | + + + + | 2016-06-27 00:00 | KETOROLAC TROMETHAMINE | [facility] | + + + + | 2016-06-27 00:00 | KETOROLAC TROMETHAMINE | [facility] | + + + + | 2016-06-27 00:00 | KETOROLAC TROMETHAMINE | [facility] | + + + + | 2016-06-27 00:00 | KETOROLAC TROMETHAMINE | [facility] | + + + + | 2016-06-27 00:00 | KETOROLAC TROMETHAMINE | [facility] | + + + + | 2022-05-21 00:00 | KETOROLAC TROMETHAMINE | [facility] | + + + + | 2022-06-08 00:00 | KETOROLAC TROMETHAMINE | [facility] | + + + + | 2022-09-20 00:00 | KETOROLAC TROMETHAMINE | [facility] | + + + + | 2022-09-29 00:00 | KETOROLAC TROMETHAMINE | [facility] | + + + + | 2022-10-04 00:00 | KETOROLAC TROMETHAMINE | [facility] | + + + + | 2022-11-12 00:00 | KETOROLAC TROMETHAMINE | [facility] | + + + + | 2022-11-14 00:00 | KETOROLAC TROMETHAMINE | [facility] | + + + + | 2022-12-27 00:00 | KETOROLAC TROMETHAMINE | [facility] | + + + + | 2023-03-14 00:00 | KETOROLAC TROMETHAMINE | [facility] | + + + + | 2023-05-09 00:00 | KETOROLAC TROMETHAMINE | [facility] | + + + + | 2023-05-16 00:00 | KETOROLAC TROMETHAMINE | [facility] | + + + + | 2022-05-21 00:00 | POLYETHYLENE GLYCOL 3350 | [facility] | + + + + | 2022-06-08 00:00 | POLYETHYLENE GLYCOL 3350 | [facility] | + + + + | 2022-09-20 00:00 | POLYETHYLENE GLYCOL 3350 | [facility] | + + + + | 2022-09-29 00:00 | POLYETHYLENE GLYCOL 3350 | [facility] | + + + + | 2022-10-04 00:00 | POLYETHYLENE GLYCOL 3350 | [facility] | + + + + | 2022-11-12 00:00 | POLYETHYLENE GLYCOL 3350 | [facility] | + + + + | 2022-11-14 00:00 | POLYETHYLENE GLYCOL 3350 | [facility] | + + + + | 2022-12-27 00:00 | POLYETHYLENE GLYCOL 3350 | [facility] | + + + + | 2023-03-14 00:00 | POLYETHYLENE GLYCOL 3350 | [facility] | + + + + | 2023-05-09 00:00 | POLYETHYLENE GLYCOL 3350 | [facility] | + + + + | 2023-05-16 00:00 | POLYETHYLENE GLYCOL 3350 | [facility] | + + + + | 2022-05-21 00:00 | POLYETHYLENE GLYCOL 3350 | [facility] | + + + + | 2022-06-08 00:00 | POLYETHYLENE GLYCOL 3350 | [facility] | + + + + | 2022-09-20 00:00 | POLYETHYLENE GLYCOL 3350 | [facility] | + + + + | 2022-09-29 00:00 | POLYETHYLENE GLYCOL 3350 | [facility] | + + + + | 2022-10-04 00:00 | POLYETHYLENE GLYCOL 3350 | [facility] | + + + + | 2022-11-12 00:00 | POLYETHYLENE GLYCOL 3350 | [facility] | + + + + | 2022-11-14 00:00 | POLYETHYLENE GLYCOL 3350 | [facility] | + + + + | 2022-12-27 00:00 | POLYETHYLENE GLYCOL 3350 | [facility] | + + + + | 2023-03-14 00:00 | POLYETHYLENE GLYCOL 3350 | [facility] | + + + + | 2023-05-09 00:00 | POLYETHYLENE GLYCOL 3350 | [facility] | + + + + | 2023-05-16 00:00 | POLYETHYLENE GLYCOL 3350 | [facility] | + + + + | 2022-05-21 00:00 | ONDANSETRON | [facility] | + + + + | 2022-06-08 00:00 | ONDANSETRON | [facility] | + + + + | 2022-09-20 00:00 | ONDANSETRON | [facility] | + + + + | 2022-09-29 00:00 | ONDANSETRON | [facility] | + + + + | 2022-10-04 00:00 | ONDANSETRON | [facility] | + + + + | 2022-11-12 00:00 | ONDANSETRON | [facility] | + + + + | 2022-11-14 00:00 | ONDANSETRON | [facility] | + + + + | 2022-12-27 00:00 | ONDANSETRON | [facility] | + + + + | 2023-03-14 00:00 | ONDANSETRON | [facility] | + + + + | 2023-05-09 00:00 | ONDANSETRON | [facility] | + + + + | 2023-05-16 00:00 | ONDANSETRON | [facility] | + + + + | 2022-05-21 00:00 | CLONIDINE HCL | [facility] | + + + + | 2022-06-08 00:00 | CLONIDINE HCL | [facility] | + + + + | 2022-09-20 00:00 | CLONIDINE HCL | [facility] | + + + + | 2022-09-29 00:00 | CLONIDINE HCL | [facility] | + + + + | 2022-10-04 00:00 | CLONIDINE HCL | [facility] | + + + + | 2022-11-12 00:00 | CLONIDINE HCL | [facility] | + + + + | 2022-11-14 00:00 | CLONIDINE HCL | [facility] | + + + + | 2022-12-27 00:00 | CLONIDINE HCL | [facility] | + + + + | 2023-03-14 00:00 | CLONIDINE HCL | [facility] | + + + + | 2023-05-09 00:00 | CLONIDINE HCL | [facility] | + + + + | 2023-05-16 00:00 | CLONIDINE HCL | [facility] | + + + + | 2022-06-08 00:00 | LIRAGLUTIDE | [facility] | + + + + | 2017-06-25 00:00 | HYDROmorphone HCL | [facility] | + + + + | 2017-06-25 00:00 | HYDROmorphone HCL | [facility] | + + + + | 2017-06-25 00:00 | HYDROmorphone HCL | [facility] | + + + + | 2017-06-25 00:00 | HYDROmorphone HCL | [facility] | + + + + | 2017-06-25 00:00 | HYDROmorphone HCL | [facility] | + + + + | 2017-06-25 00:00 | HYDROmorphone HCL | [facility] | + + + + | 2022-05-21 00:00 | HYDROmorphone HCL | [facility] | + + + + | 2022-06-08 00:00 | HYDROmorphone HCL | [facility] | + + + + | 2022-09-20 00:00 | HYDROmorphone HCL | [facility] | + + + + | 2022-09-29 00:00 | HYDROmorphone HCL | [facility] | + + + + | 2022-10-04 00:00 | HYDROmorphone HCL | [facility] | + + + + | 2022-11-12 00:00 | HYDROmorphone HCL | [facility] | + + + + | 2022-11-14 00:00 | HYDROmorphone HCL | [facility] | + + + + | 2022-12-27 00:00 | HYDROmorphone HCL | [facility] | + + + + | 2023-03-14 00:00 | HYDROmorphone HCL | [facility] | + + + + | 2023-05-09 00:00 | HYDROmorphone HCL | [facility] | + + + + | 2023-05-16 00:00 | HYDROmorphone HCL | [facility] | + + + + | 2019-08-08 00:00 | 168 HR buprenorphine 0.01 | [facility] | | | MG/HR Transdermal System | | | | [BuTrans] | | + + + + | 2019-11-02 00:00 | ALPRAZolam 0.5 MG Oral | [facility] | | | Tablet | | + + + + | 2022-05-21 00:00 | PEG 3350/NA | [facility] | | | SULF,BICARB,CL/KCL | | + + + + | 2022-06-08 00:00 | PEG 3350/NA | [facility] | | | SULF,BICARB,CL/KCL | | + + + + | 2022-09-20 00:00 | PEG 3350/NA | [facility] | | | SULF,BICARB,CL/KCL | | + + + + | 2022-09-29 00:00 | PEG 3350/NA | [facility] | | | SULF,BICARB,CL/KCL | | + + + + | 2022-10-04 00:00 | PEG 3350/NA | [facility] | | | SULF,BICARB,CL/KCL | | + + + + | 2022-11-12 00:00 | PEG 3350/NA | [facility] | | | SULF,BICARB,CL/KCL | | + + + + | 2022-11-14 00:00 | PEG 3350/NA | [facility] | | | SULF,BICARB,CL/KCL | | + + + + | 2022-12-27 00:00 | PEG 3350/NA | [facility] | | | SULF,BICARB,CL/KCL | | + + + + | 2023-03-14 00:00 | PEG 3350/NA | [facility] | | | SULF,BICARB,CL/KCL | | + + + + | 2023-05-09 00:00 | PEG 3350/NA | [facility] | | | SULF,BICARB,CL/KCL | | + + + + | 2023-05-16 00:00 | PEG 3350/NA | [facility] | | | SULF,BICARB,CL/KCL | | + + + + | 2022-05-21 00:00 | PROMETHAZINE HCL | [facility] | + + + + | 2022-06-08 00:00 | PROMETHAZINE HCL | [facility] | + + + + | 2022-09-20 00:00 | PROMETHAZINE HCL | [facility] | + + + + | 2022-09-29 00:00 | PROMETHAZINE HCL | [facility] | + + + + | 2022-10-04 00:00 | PROMETHAZINE HCL | [facility] | + + + + | 2022-11-12 00:00 | PROMETHAZINE HCL | [facility] | + + + + | 2022-11-14 00:00 | PROMETHAZINE HCL | [facility] | + + + + | 2022-12-27 00:00 | PROMETHAZINE HCL | [facility] | + + + + | 2023-03-14 00:00 | PROMETHAZINE HCL | [facility] | + + + + | 2023-05-09 00:00 | PROMETHAZINE HCL | [facility] | + + + + | 2023-05-16 00:00 | PROMETHAZINE HCL | [facility] | + + + + | 2022-05-09 00:00 | PROMETHAZINE HCL | [facility] | + + + + | 2022-05-21 00:00 | PROMETHAZINE HCL | [facility] | + + + + | 2022-06-08 00:00 | PROMETHAZINE HCL | [facility] | + + + + | 2022-09-20 00:00 | PROMETHAZINE HCL | [facility] | + + + + | 2022-09-29 00:00 | PROMETHAZINE HCL | [facility] | + + + + | 2022-10-04 00:00 | PROMETHAZINE HCL | [facility] | + + + + | 2022-11-12 00:00 | PROMETHAZINE HCL | [facility] | + + + + | 2022-11-14 00:00 | PROMETHAZINE HCL | [facility] | + + + + | 2022-12-27 00:00 | PROMETHAZINE HCL | [facility] | + + + + | 2023-03-14 00:00 | PROMETHAZINE HCL | [facility] | + + + + | 2023-05-09 00:00 | PROMETHAZINE HCL | [facility] | + + + + | 2023-05-16 00:00 | PROMETHAZINE HCL | [facility] | + + + + | 2022-05-21 00:00 | PROMETHAZINE HCL | [facility] | + + + + | 2022-06-08 00:00 | PROMETHAZINE HCL | [facility] | + + + + | 2022-09-20 00:00 | PROMETHAZINE HCL | [facility] | + + + + | 2022-09-29 00:00 | PROMETHAZINE HCL | [facility] | + + + + | 2022-10-04 00:00 | PROMETHAZINE HCL | [facility] | + + + + | 2022-11-12 00:00 | PROMETHAZINE HCL | [facility] | + + + + | 2022-11-14 00:00 | PROMETHAZINE HCL | [facility] | + + + + | 2022-12-27 00:00 | PROMETHAZINE HCL | [facility] | + + + + | 2023-03-14 00:00 | PROMETHAZINE HCL | [facility] | + + + + | 2023-05-09 00:00 | PROMETHAZINE HCL | [facility] | + + + + | 2023-05-16 00:00 | PROMETHAZINE HCL | [facility] | + + + + | 2017-09-27 00:00 | PROMETHAZINE HCL | [facility] | + + + + | 2017-09-27 00:00 | PROMETHAZINE HCL | [facility] | + + + + | 2017-09-27 00:00 | PROMETHAZINE HCL | [facility] | + + + + | 2017-09-27 00:00 | PROMETHAZINE HCL | [facility] | + + + + | 2017-09-27 00:00 | PROMETHAZINE HCL | [facility] | + + + + | 2017-09-27 00:00 | PROMETHAZINE HCL | [facility] | + + + + | 2020-07-16 00:00 | 1 ML promethazine | [facility] | | | hydrochloride 25 MG/ML | | | | Injection | | + + + + | 2019-08-16 00:00 | PROMETHAZINE HCL | [facility] | + + + + | 2019-08-16 00:00 | PROMETHAZINE HCL | [facility] | + + + + | 2019-08-16 00:00 | PROMETHAZINE HCL | [facility] | + + + + | 2019-08-16 00:00 | PROMETHAZINE HCL | [facility] | + + + + | 2019-08-16 00:00 | PROMETHAZINE HCL | [facility] | + + + + | 2019-08-16 00:00 | PROMETHAZINE HCL | [facility] | + + + + | 2022-05-21 00:00 | PROMETHAZINE HCL | [facility] | + + + + | 2022-06-08 00:00 | PROMETHAZINE HCL | [facility] | + + + + | 2022-09-20 00:00 | PROMETHAZINE HCL | [facility] | + + + + | 2022-09-29 00:00 | PROMETHAZINE HCL | [facility] | + + + + | 2022-10-04 00:00 | PROMETHAZINE HCL | [facility] | + + + + | 2022-11-12 00:00 | PROMETHAZINE HCL | [facility] | + + + + | 2022-11-14 00:00 | PROMETHAZINE HCL | [facility] | + + + + | 2022-12-27 00:00 | PROMETHAZINE HCL | [facility] | + + + + | 2023-03-14 00:00 | PROMETHAZINE HCL | [facility] | + + + + | 2023-05-09 00:00 | PROMETHAZINE HCL | [facility] | + + + + | 2023-05-16 00:00 | PROMETHAZINE HCL | [facility] | + + + + | 2016-06-27 00:00 | PROMETHAZINE HCL | [facility] | + + + + | 2016-06-27 00:00 | PROMETHAZINE HCL | [facility] | + + + + | 2016-06-27 00:00 | PROMETHAZINE HCL | [facility] | + + + + | 2016-06-27 00:00 | PROMETHAZINE HCL | [facility] | + + + + | 2016-06-27 00:00 | PROMETHAZINE HCL | [facility] | + + + + | 2016-06-27 00:00 | PROMETHAZINE HCL | [facility] | + + + + | 2022-05-21 00:00 | BUPROPION HCL | [facility] | + + + + | 2022-06-08 00:00 | BUPROPION HCL | [facility] | + + + + | 2022-09-20 00:00 | BUPROPION HCL | [facility] | + + + + | 2022-09-29 00:00 | BUPROPION HCL | [facility] | + + + + | 2022-10-04 00:00 | BUPROPION HCL | [facility] | + + + + | 2022-11-12 00:00 | BUPROPION HCL | [facility] | + + + + | 2022-11-14 00:00 | BUPROPION HCL | [facility] | + + + + | 2022-12-27 00:00 | BUPROPION HCL | [facility] | + + + + | 2023-03-14 00:00 | BUPROPION HCL | [facility] | + + + + | 2023-05-09 00:00 | BUPROPION HCL | [facility] | + + + + | 2023-05-16 00:00 | BUPROPION HCL | [facility] | + + + + | 2022-05-21 00:00 | BUPROPION HCL | [facility] | + + + + | 2022-06-08 00:00 | BUPROPION HCL | [facility] | + + + + | 2022-09-20 00:00 | BUPROPION HCL | [facility] | + + + + | 2022-09-29 00:00 | BUPROPION HCL | [facility] | + + + + | 2022-10-04 00:00 | BUPROPION HCL | [facility] | + + + + | 2022-11-12 00:00 | BUPROPION HCL | [facility] | + + + + | 2022-11-14 00:00 | BUPROPION HCL | [facility] | + + + + | 2022-12-27 00:00 | BUPROPION HCL | [facility] | + + + + | 2023-03-14 00:00 | BUPROPION HCL | [facility] | + + + + | 2023-05-09 00:00 | BUPROPION HCL | [facility] | + + + + | 2023-05-16 00:00 | BUPROPION HCL | [facility] | + + + + | 2019-07-13 00:00 | bupropion hydrochloride | [facility] | | | 100 MG Oral Tablet | | + + + + | 2021-07-25 00:00 | hydrOXYzine PAMOATE | [facility] | + + + + | 2021-07-25 00:00 | hydrOXYzine PAMOATE | [facility] | + + + + | 2021-07-25 00:00 | hydrOXYzine PAMOATE | [facility] | + + + + | 2021-07-25 00:00 | hydrOXYzine PAMOATE | [facility] | + + + + | 2021-07-25 00:00 | hydrOXYzine PAMOATE | [facility] | + + + + | 2021-07-25 00:00 | hydrOXYzine PAMOATE | [facility] | + + + + | 2022-05-21 00:00 | HYDROXYZINE PAMOATE | [facility] | + + + + | 2022-06-08 00:00 | HYDROXYZINE PAMOATE | [facility] | + + + + | 2022-09-20 00:00 | HYDROXYZINE PAMOATE | [facility] | + + + + | 2022-09-29 00:00 | HYDROXYZINE PAMOATE | [facility] | + + + + | 2022-10-04 00:00 | HYDROXYZINE PAMOATE | [facility] | + + + + | 2022-11-12 00:00 | HYDROXYZINE PAMOATE | [facility] | + + + + | 2022-11-14 00:00 | HYDROXYZINE PAMOATE | [facility] | + + + + | 2022-12-27 00:00 | HYDROXYZINE PAMOATE | [facility] | + + + + | 2023-03-14 00:00 | HYDROXYZINE PAMOATE | [facility] | + + + + | 2023-05-09 00:00 | HYDROXYZINE PAMOATE | [facility] | + + + + | 2023-05-16 00:00 | HYDROXYZINE PAMOATE | [facility] | + + + + | 2022-05-21 00:00 | HYDROXYZINE HCL | [facility] | + + + + | 2022-06-08 00:00 | HYDROXYZINE HCL | [facility] | + + + + | 2022-09-20 00:00 | HYDROXYZINE HCL | [facility] | + + + + | 2022-09-29 00:00 | HYDROXYZINE HCL | [facility] | + + + + | 2022-10-04 00:00 | HYDROXYZINE HCL | [facility] | + + + + | 2022-11-12 00:00 | HYDROXYZINE HCL | [facility] | + + + + | 2022-11-14 00:00 | HYDROXYZINE HCL | [facility] | + + + + | 2022-12-27 00:00 | HYDROXYZINE HCL | [facility] | + + + + | 2023-03-14 00:00 | HYDROXYZINE HCL | [facility] | + + + + | 2023-05-09 00:00 | HYDROXYZINE HCL | [facility] | + + + + | 2023-05-16 00:00 | HYDROXYZINE HCL | [facility] | + + + + | 2022-05-21 00:00 | MEMANTINE HCL | [facility] | + + + + | 2022-06-08 00:00 | MEMANTINE HCL | [facility] | + + + + | 2022-09-20 00:00 | MEMANTINE HCL | [facility] | + + + + | 2022-09-29 00:00 | MEMANTINE HCL | [facility] | + + + + | 2022-10-04 00:00 | MEMANTINE HCL | [facility] | + + + + | 2022-11-12 00:00 | MEMANTINE HCL | [facility] | + + + + | 2022-11-14 00:00 | MEMANTINE HCL | [facility] | + + + + | 2022-12-27 00:00 | MEMANTINE HCL | [facility] | + + + + | 2023-03-14 00:00 | MEMANTINE HCL | [facility] | + + + + | 2023-05-09 00:00 | MEMANTINE HCL | [facility] | + + + + | 2023-05-16 00:00 | MEMANTINE HCL | [facility] | + + + + | 2022-05-21 00:00 | MEMANTINE HCL | [facility] | + + + + | 2022-06-08 00:00 | MEMANTINE HCL | [facility] | + + + + | 2022-09-20 00:00 | MEMANTINE HCL | [facility] | + + + + | 2022-09-29 00:00 | MEMANTINE HCL | [facility] | + + + + | 2022-10-04 00:00 | MEMANTINE HCL | [facility] | + + + + | 2022-11-12 00:00 | MEMANTINE HCL | [facility] | + + + + | 2022-11-14 00:00 | MEMANTINE HCL | [facility] | + + + + | 2022-12-27 00:00 | MEMANTINE HCL | [facility] | + + + + | 2023-03-14 00:00 | MEMANTINE HCL | [facility] | + + + + | 2023-05-09 00:00 | MEMANTINE HCL | [facility] | + + + + | 2023-05-16 00:00 | MEMANTINE HCL | [facility] | + + + + | 2019-07-13 00:00 | Mirena 52MCG/24HR | [facility] | | | Intrauterine Intrauterine | | | | device | | + + + + | 2019-10-03 00:00 | OxyCODONE (IR) 10 mg Oral | [facility] | | | Tablet | | + + + + | 2019-11-02 00:00 | OxyCODONE (IR) 10 mg Oral | [facility] | | | Tablet | | + + + + | 2020-01-22 00:00 | OxyCODONE (IR) 10 mg Oral | [facility] | | | Tablet | | + + + + Problems + + + + | date | description | facility | + + + + | (no date) | Dizziness and giddiness | [facility] | | | | [place] | + + + + | (no date) | Syncope and collapse | [facility] | | | | [place] | + + + + | 2015-02-22 00:00 | Dog bite | [facility] | + + + + | 2015-02-22 00:00 | Dog bite | [facility] | + + + + | 2015-02-22 00:00 | Dog bite | [facility] | + + + + | 2015-02-22 00:00 | Dog bite | [facility] | + + + + | 2015-02-22 00:00 | Dog bite | [facility] | + + + + | 2015-02-22 00:00 | Dog bite | [facility] | + + + + | 2015-10-10 00:00 | Nausea and vomiting | [facility] | + + + + | 2015-10-10 00:00 | Nausea and vomiting | [facility] | + + + + | 2015-10-10 00:00 | Nausea and vomiting | [facility] | + + + + | 2015-10-10 00:00 | Nausea and vomiting | [facility] | + + + + | 2015-10-10 00:00 | Nausea and vomiting | [facility] | + + + + | 2015-10-10 00:00 | Nausea and vomiting | [facility] | + + + + | 2015-10-15 00:00 | Gastritis | [facility] | + + + + | 2015-10-15 00:00 | Gastritis | [facility] | + + + + | 2015-10-15 00:00 | Gastritis | [facility] | + + + + | 2015-10-15 00:00 | Gastritis | [facility] | + + + + | 2015-10-15 00:00 | Gastritis | [facility] | + + + + | 2015-10-15 00:00 | Gastritis | [facility] | + + + + | 2015-10-17 00:00 | Complex regional pain | [facility] | | | syndrome of left lower | | | | extremity | | + + + + | 2015-10-17 00:00 | Complex regional pain | [facility] | | | syndrome of left lower | | | | extremity | | + + + + | 2015-10-17 00:00 | Complex regional pain | [facility] | | | syndrome of left lower | | | | extremity | | + + + + | 2015-10-17 00:00 | Complex regional pain | [facility] | | | syndrome of left lower | | | | extremity | | + + + + | 2015-10-17 00:00 | Complex regional pain | [facility] | | | syndrome of left lower | | | | extremity | | + + + + | 2015-10-17 00:00 | Complex regional pain | [facility] | | | syndrome of left lower | | | | extremity | | + + + + | 2015-10-17 00:00 | Nondiabetic gastroparesis | [facility] | + + + + | 2015-10-17 00:00 | Nondiabetic gastroparesis | [facility] | + + + + | 2015-10-17 00:00 | Nondiabetic gastroparesis | [facility] | + + + + | 2015-10-17 00:00 | Nondiabetic gastroparesis | [facility] | + + + + | 2015-10-17 00:00 | Nondiabetic gastroparesis | [facility] | + + + + | 2015-10-17 00:00 | Nondiabetic gastroparesis | [facility] | + + + + | 2016-04-17 00:00 | Gastroparesis | [facility] | + + + + | 2016-04-17 00:00 | Gastroparesis | [facility] | + + + + | 2016-04-17 00:00 | Gastroparesis | [facility] | + + + + | 2016-04-17 00:00 | Gastroparesis | [facility] | + + + + | 2016-04-17 00:00 | Gastroparesis | [facility] | + + + + | 2016-04-17 00:00 | Gastroparesis | [facility] | + + + + | 2016-10-20 00:00 | Asthma | [facility] | + + + + | 2016-10-20 00:00 | Asthma | [facility] | + + + + | 2016-10-20 00:00 | Asthma | [facility] | + + + + | 2016-10-20 00:00 | Asthma | [facility] | + + + + | 2016-10-20 00:00 | Asthma | [facility] | + + + + | 2016-10-20 00:00 | Asthma | [facility] | + + + + | 2016-10-20 00:00 | 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[facility] | + + + + | 2016-10-20 00:00 | 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[facility] | + + + + | 2016-10-20 00:00 | 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[facility] | + + + + | 2016-10-20 00:00 | 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[facility] | + + + + | 2016-10-20 00:00 | 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[facility] | + + + + | 2016-10-20 00:00 | 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[facility] | + + + + | 2016-10-20 00:00 | Abdominal pain | [facility] | + + + + | 2016-10-20 00:00 | Abdominal pain | [facility] | + + + + | 2016-10-20 00:00 | Abdominal pain | [facility] | + + + + | 2016-10-20 00:00 | Abdominal pain | [facility] | + + + + | 2016-10-20 00:00 | Abdominal pain | [facility] | + + + + | 2016-10-20 00:00 | Abdominal pain | [facility] | + + + + | 2016-10-20 00:00 | Cyclic vomiting syndrome | [facility] | + + + + | 2016-10-20 00:00 | Cyclic vomiting syndrome | [facility] | + + + + | 2016-10-20 00:00 | Cyclic vomiting syndrome | [facility] | + + + + | 2016-10-20 00:00 | Cyclic vomiting syndrome | [facility] | + + + + | 2016-10-20 00:00 | Cyclic vomiting syndrome | [facility] | + + + + | 2016-10-20 00:00 | Cyclic vomiting syndrome | [facility] | + + + + | 2016-10-20 00:00 | Persistent vomiting | [facility] | + + + + | 2016-10-20 00:00 | Persistent vomiting | [facility] | + + + + | 2016-10-20 00:00 | Persistent vomiting | [facility] | + + + + | 2016-10-20 00:00 | Persistent vomiting | [facility] | + + + + | 2016-10-20 00:00 | Persistent vomiting | [facility] | + + + + | 2016-10-20 00:00 | Persistent vomiting | [facility] | + + + + | 2016-10-24 00:00 | Ab[facility] pain with | [facility] | | | vomiting | | + + + + | 2016-10-24 00:00 | Abdominal pain with | [facility] | | | vomiting | | + + + + | 2016-10-24 00:00 | Abdominal pain with | [facility] | | | vomiting | | + + + + | 2016-10-24 00:00 | Abdominal pain with | [facility] | | | vomiting | | + + + + | 2016-10-24 00:00 | Abdominal pain with | [facility] | | | vomiting | | + + + + | 2016-10-24 00:00 | Abdominal pain with | [facility] | | | vomiting | | + + + + | 2016-12-02 00:00 | Upper respiratory tract | [facility] | | | infection | | + + + + | 2016-12-02 00:00 | Upper respiratory tract | [facility] | | | infection | | + + + + | 2016-12-02 00:00 | Upper respiratory tract | [facility] | | | infection | | + + + + | 2016-12-02 00:00 | Upper respiratory tract | [facility] | | | infection | | + + + + | 2016-12-02 00:00 | Upper respiratory tract | [facility] | | | infection | | + + + + | 2016-12-02 00:00 | Upper respiratory tract | [facility] | | | infection | | + + + + | 2017-01-05 00:00 | Abdominal pain | [facility] | + + + + | 2017-01-05 00:00 | Abdominal pain | [facility] | + + + + | 2017-01-05 00:00 | Abdominal pain | [facility] | + + + + | 2017-01-05 00:00 | Abdominal pain | [facility] | + + + + | 2017-01-05 00:00 | Abdominal pain | [facility] | + + + + | 2017-01-05 00:00 | Abdominal pain | [facility] | + + + + | 2017-03-18 00:00 | Chronic abdominal pain | [facility] | + + + + | 2017-03-18 00:00 | Chronic abdominal pain | [facility] | + + + + | 2017-03-18 00:00 | Chronic abdominal pain | [facility] | + + + + | 2017-03-18 00:00 | Chronic abdominal pain | [facility] | + + + + | 2017-03-18 00:00 | Chronic abdominal pain | [facility] | + + + + | 2017-03-18 00:00 | Chronic abdominal pain | [facility] | + + + + | 2017-04-08 00:00 | Intractable vomiting | [facility] | + + + + | 2017-04-08 00:00 | Intractable vomiting | [facility] | + + + + | 2017-04-08 00:00 | Intractable vomiting | [facility] | + + + + | 2017-04-08 00:00 | Intractable vomiting | [facility] | + + + + | 2017-04-08 00:00 | Intractable vomiting | [facility] | + + + + | 2017-04-08 00:00 | Intractable vomiting | [facility] | + + + + | 2017-04-08 00:00 | Intractable pain | [facility] | + + + + | 2017-04-08 00:00 | Intractable pain | [facility] | + + + + | 2017-04-08 00:00 | Intractable pain | [facility] | + + + + | 2017-04-08 00:00 | Intractable pain | [facility] | + + + + | 2017-04-08 00:00 | Intractable pain | [facility] | + + + + | 2017-04-08 00:00 | Intractable pain | [facility] | + + + + | 2017-04-20 00:00 | Complex regional pain | [facility] | | | syndrome | | + + + + | 2017-04-20 00:00 | Complex regional pain | [facility] | | | syndrome | | + + + + | 2017-04-20 00:00 | Complex regional pain | [facility] | | | syndrome | | + + + + | 2017-04-20 00:00 | Complex regional pain | [facility] | | | syndrome | | + + + + | 2017-04-20 00:00 | Complex regional pain | [facility] | | | syndrome | | + + + + | 2017-04-20 00:00 | Complex regional pain | [facility] | | | syndrome | | + + + + | 2017-04-20 00:00 | Slow transit constipation | [facility] | + + + + | 2017-04-20 00:00 | Slow transit constipation | [facility] | + + + + | 2017-04-20 00:00 | Slow transit constipation | [facility] | + + + + | 2017-04-20 00:00 | Slow transit constipation | [facility] | + + + + | 2017-04-20 00:00 | Slow transit constipation | [facility] | + + + + | 2017-04-20 00:00 | Slow transit constipation | [facility] | + + + + | 2017-04-20 00:00 | Right upper quadrant | [facility] | | | abdominal pain | | + + + + | 2017-04-20 00:00 | Right upper quadrant | [facility] | | | abdominal pain | | + + + + | 2017-04-20 00:00 | Right upper quadrant | [facility] | | | abdominal pain | | + + + + | 2017-04-20 00:00 | Right upper quadrant | [facility] | | | abdominal pain | | + + + + | 2017-04-20 00:00 | Right upper quadrant | [facility] | | | abdominal pain | | + + + + | 2017-04-20 00:00 | Right upper quadrant | [facility] | | | abdominal pain | | + + + + | 2017-04-20 00:00 | Cyclic vomiting syndrome | [facility] | + + + + | 2017-04-20 00:00 | Cyclic vomiting syndrome | [facility] | + + + + | 2017-04-20 00:00 | Cyclic vomiting syndrome | [facility] | + + + + | 2017-04-20 00:00 | Cyclic vomiting syndrome | [facility] | + + + + | 2017-04-20 00:00 | Cyclic vomiting syndrome | [facility] | + + + + | 2017-04-20 00:00 | Cyclic vomiting syndrome | [facility] | + + + + | 2018-02-04 00:00 | Patient left without being | [facility] | | | seen | | + + + + | 2018-02-04 00:00 | Patient left without being | [facility] | | | seen | | + + + + | 2018-02-04 00:00 | Patient left without being | [facility] | | | seen | | + + + + | 2018-02-04 00:00 | Patient left without being | [facility] | | | seen | | + + + + | 2018-02-04 00:00 | Patient left without being | [facility] | | | seen | | + + + + | 2018-02-04 00:00 | Patient left without being | [facility] | | | seen | | + + + + | 2018-02-13 00:00 | Chronic interstitial | [facility] | | | cystitis | | + + + + | 2018-02-13 00:00 | Chronic interstitial | [facility] | | | cystitis | | + + + + | 2018-02-13 00:00 | Chronic interstitial | [facility] | | | cystitis | | + + + + | 2018-02-13 00:00 | Chronic interstitial | [facility] | | | cystitis | | + + + + | 2018-02-13 00:00 | Chronic interstitial | [facility] | | | cystitis | | + + + + | 2018-02-13 00:00 | Chronic interstitial | [facility] | | | cystitis | | + + + + | 2018-10-07 00:00 | Local infection of wound | [facility] | + + + + | 2018-10-07 00:00 | Local infection of wound | [facility] | + + + + | 2018-10-07 00:00 | Local infection of wound | [facility] | + + + + | 2018-10-07 00:00 | Local infection of wound | [facility] | + + + + | 2018-10-07 00:00 | Local infection of wound | [facility] | + + + + | 2018-10-07 00:00 | Local infection of wound | [facility] | + + + + | 2018-10-08 00:00 | Encounter for wound | [facility] | | | re-check | | + + + + | 2018-10-08 00:00 | Encounter for wound | [facility] | | | re-check | | + + + + | 2018-10-08 00:00 | Encounter for wound | [facility] | | | re-check | | + + + + | 2018-10-08 00:00 | Encounter for wound | [facility] | | | re-check | | + + + + | 2018-10-08 00:00 | Encounter for wound | [facility] | | | re-check | | + + + + | 2018-10-08 00:00 | Encounter for wound | [facility] | | | re-check | | + + + + | 2018-10-22 00:00 | Recurrent abdominal pain | [facility] | + + + + | 2018-10-22 00:00 | Recurrent abdominal pain | [facility] | + + + + | 2018-10-22 00:00 | Recurrent abdominal pain | [facility] | + + + + | 2018-10-22 00:00 | Recurrent abdominal pain | [facility] | + + + + | 2018-10-22 00:00 | Recurrent abdominal pain | [facility] | + + + + | 2018-10-22 00:00 | Recurrent abdominal pain | [facility] | + + + + | 2019-11-02 00:00 | Pseudarthrosis after | [facility] | | | fusion or arthrodesis | | | | (disorder) | | + + + + | 2019-11-02 00:00 | Mechanical complication of | [facility] | | | internal orthopedic | | | | device, other | | + + + + | 2019-11-02 00:00 | Pseudarthrosis After | [facility] | | | Fusion Or Arthrodesis | | + + + + | 2020-07-04 00:00 | Acute torticollis | [facility] | + + + + | 2020-07-04 00:00 | Acute torticollis | [facility] | + + + + | 2020-07-04 00:00 | Acute torticollis | [facility] | + + + + | 2020-07-04 00:00 | Acute torticollis | [facility] | + + + + 2020-07-04 00:00 | Acute torticollis | [facility] | + + + + 2020-07-04 00:00 | Acute torticollis | [facility] | + + + + | 2020-08-12 00:00 | Chronic vomiting | [facility] | + + + + | 2020-08-12 00:00 | Chronic vomiting | [facility] | + + + + | 2020-08-12 00:00 | Chronic vomiting | [facility] | + + + + | 2020-08-12 00:00 | Chronic vomiting | [facility] | + + + + | 2020-08-12 00:00 | Chronic vomiting | [facility] | + + + + | 2020-08-12 00:00 | Chronic vomiting | [facility] | + + + + | 2020-09-25 00:00 | Chronic generalized | [facility] | | | abdominal pain | | + + + + | 2020-09-25 00:00 | Chronic generalized | [facility] | | | abdominal pain | | + + + + | 2020-09-25 00:00 | Chronic generalized | [facility] | | | abdominal pain | | + + + + | 2020-09-25 00:00 | Chronic generalized | [facility] | | | abdominal pain | | + + + + | 2020-09-25 00:00 | Chronic generalized | [facility] | | | abdominal pain | | + + + + | 2020-09-25 00:00 | Chronic generalized | [facility] | | | abdominal pain | | + + + + | 2020-12-09 00:00 | Deep vein thrombosis (DVT) | [facility] | | | of right upper extremity | | + + + + | 2020-12-09 00:00 | Deep vein thrombosis (DVT) | [facility] | | | of right upper extremity | | + + + + | 2020-12-09 00:00 | Deep vein thrombosis (DVT) | [facility] | | | of right upper extremity | | + + + + | 2020-12-09 00:00 | Deep vein thrombosis (DVT) | [facility] | | | of right upper extremity | | + + + + | 2020-12-09 00:00 | Deep vein thrombosis (DVT) | [facility] | | | of right upper extremity | | + + + + | 2020-12-09 00:00 | Deep vein thrombosis (DVT) | [facility] | | | of right upper extremity | | + + + + | 2021-05-16 00:00 | Diarrhea | [facility] | + + + + | 2021-05-16 00:00 | Diarrhea | [facility] | + + + + | 2021-05-16 00:00 | Diarrhea | [facility] | + + + + | 2021-05-16 00:00 | Diarrhea | [facility] | + + + + | 2021-05-16 00:00 | Diarrhea | [facility] | + + + + | 2021-05-16 00:00 | Diarrhea | [facility] | + + + + | 2021-07-19 00:00 | Bilateral pulmonary | [facility]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 | | + + + + | 2021-07-19 00:00 | Bilateral pulmonary | [facility]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 | | + + + + | 2021-07-19 00:00 | Bilateral pulmonary | [facility]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 | | + + + + | 2021-07-19 00:00 | Bilateral pulmonary | [facility]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 | | + + + + | 2021-07-19 00:00 | Bilateral pulmonary | [facility]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 | | + + + + | 2021-07-19 00:00 | Bilateral pulmonary | [facility]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 | | + + + + | 2021-09-22 00:00 | Recurrent pulmonary | [facility]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 | | + + + + | 2021-09-22 00:00 | Recurrent pulmonary | [facility]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 | | + + + + | 2021-09-22 00:00 | Recurrent pulmonary | [facility]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 | | + + + + | 2021-09-22 00:00 | Recurrent pulmonary | [facility]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 | | + + + + | 2021-09-22 00:00 | Recurrent pulmonary | [facility]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 | | + + + + | 2021-09-22 00:00 | Recurrent pulmonary | [facility]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 | | + + + + | 2022-02-18 00:00 | Chronic pulmonary embolism | [facility] | | | | | + + + + | 2022-02-18 00:00 | Chronic pulmonary embolism | [facility] | | | | | + + + + | 2022-02-18 00:00 | Chronic pulmonary embolism | [facility] | | | | | + + + + | 2022-02-18 00:00 | Chronic pulmonary embolism | [facility] | | | | | + + + + | 2022-02-18 00:00 | Chronic pulmonary embolism | [facility] | | | | | + + + + | 2022-02-18 00:00 | Chronic pulmonary embolism | [facility] | | | | | + [...] + + + | 2022-02-18 09:06 | SKILLED NURSING (CURRENT) USE OF | [facility] | | | ANTITHROMBOTICS/ANTIPLA | | + + + + | 2022-02-18 09:06 | SKILLED NURSING (CURRENT) USE OF | [facility] | | | OPIATE ANALGESIC | | + + + + | 2022-02-18 09:06 | OTHER DIRECTOR ADVERTISING (CURRENT) | [facility] | | | DRUG THERAPY | | + + + + | 2022-03-16 00:00 | Pulmonary embolism | [facility] | + + + + | 2022-03-16 00:00 | Pulmonary embolism | [facility] | + + + + | 2022-03-16 00:00 | Pulmonary embolism | [facility] | + + + + | 2022-03-16 00:00 | Pulmonary embolism | [facility] | + + + + | 2022-03-16 00:00 | Pulmonary embolism | [facility] | + + + + | 2022-03-16 00:00 | Pulmonary embolism | [facility] | + + + + | 2022-03-16 00:00 | Left lower lobe pneumonia | [facility] | + + + + | 2022-03-16 00:00 | Left lower lobe pneumonia | [facility] | + + + + | 2022-03-16 00:00 | Left lower lobe pneumonia | [facility] | + + + + | 2022-03-16 00:00 | Left lower lobe pneumonia | [facility] | + + + + | 2022-03-16 00:00 | Left lower lobe pneumonia | [facility] | + + + + | 2022-03-16 00:00 | Left lower lobe pneumonia | [facility] | + + + + | 2022-03-16 00:00 | Hypoxia | [facility] | + + + + | 2022-03-16 00:00 | Hypoxia | [facility] | + + + + | 2022-03-16 00:00 | Hypoxia | [facility] | + + + + | 2022-03-16 00:00 | Hypoxia | [facility] | + + + + | 2022-03-16 00:00 | Hypoxia | [facility] | + + + + | 2022-03-16 00:00 | Hypoxia | [facility] | + + + + | 2022-09-20 [...] 2022-09-29 00:00 | Nonspecific abdominal pain | [facility] | | | | | + + + + | 2022-09-29 00:00 | Nonspecific abdominal pain | [facility] | | | | | + + + + | 2022-09-29 00:00 | Nonspecific abdominal pain | [facility] | | | | | + + + + | 2022-09-29 00:00 | Nonspecific abdominal pain | [facility] | | | | | + + + + | 2022-09-29 00:00 | Nonspecific abdominal pain | [facility] | | | | | + + + + | 2022-09-29 00:00 | Nonspecific abdominal pain | [facility] | | | | | + + + + | 2022-09-29 15:10 | UNSPECIFIED ABDOMINAL PAIN | [facility] | | | | | + + + + | 2022-09-29 15:10 | OTHER DIRECTOR ADVERTISING (CURRENT) | [facility] | | | DRUG [...] | 2022-10-04 00:00 | Chest pain | [facility] | + + + + | 2022-10-04 00:00 | Chest pain | [facility] | + + + + | 2022-10-04 00:00 | Chest pain | [facility] | + + + + | 2022-10-04 00:00 | Chest pain | [facility] | + + + + | 2022-10-04 00:00 | Chest pain | [facility] | + + + + | [...] + + + | 2022-11-11 13:20 | DIRECTOR ADVERTISING (CURRENT) USE OF | [facility] | | | ANTICOAGULANTS | | + + + + | 2022-11-11 13:20 | OTHER SKILLED NURSING (CURRENT) | [facility] | | | DRUG [...] + + + | 2022-11-14 15:44 | SKILLED NURSING (CURRENT) USE OF | [facility] | | | ANTICOAGULANTS | | + + + + | 2022-11-14 15:44 | OTHER SKILLED NURSING (CURRENT) | [facility] | | | DRUG [...] + + + | 2022-12-27 07:00 | DIRECTOR ADVERTISING (CURRENT) USE OF | [facility] | | | ANTICOAGULANTS | | + + + + | 2022-12-27 07:00 | OTHER DIRECTOR ADVERTISING (CURRENT) | [facility] | | | DRUG [...] + + + | 2023-03-14 12:07 | SKILLED NURSING (CURRENT) USE OF | [facility] | | | ANTICOAGULANTS | | + + + + | 2023-03-14 12:07 | OTHER SKILLED NURSING (CURRENT) | [facility] | | | DRUG [...] + + + | 2023-05-16 14:14 | SKILLED NURSING (CURRENT) USE OF | [facility] | | [...] 00:00 | DILATION OF BLADDER WITH | [facility] | | | INTRALUMINAL DEVICE, ENDO | | + + + + | 2022-02-08 00:00 | DILATION OF BLADDER, ENDO | [facility] | + + + + | 2022-09-20 00:00 | DILATION OF BLADDER, ENDO | [facility] | + + + + | 2022-09-20 00:00 | DILATION OF BLADDER, ENDO | [facility] | + + + + | [...] 2022-02-08 00:00 | CYSTOSCOPY AND TREATMENT | [facility] | + + + + | 2022-09-20 00:00 | CYSTOSCOPY AND TREATMENT | [facility] | + + + + | 2022-09-20 00:00 | CYSTOSCOPY AND TREATMENT | [facility] | + + + + | 2023-05-09 00:00 | CYSTOSCOPY AND TREATMENT | [facility] | + + + + | [...] 2021-02-04 00:00 | ANS testing, combined | [facility] | | | [...] (missing) | | (unavailable | 10:55:07 | [facility] | | | | | [...] + + + + + + | [id number] | + + + + + +------+---------+ + | | 2022-10-19 | PRAXIS | 25 | ng/mL | (missing) | | [id number] | 10:35 | MEDICAL | | | [...] NEGATIVE | (missing) | (missing) | | [id number] | 10:35 | MEDICAL | ng/mL | [...]
[~2023-07-03 14:34] MED LIST changes: +ATOMOXETINE HCL40 MG PO
--- OUTSIDE RECORDS SUMMARY | 2023-07-03 14:36 | XMS ---
PreManage Notification: BRODY LINCOLN Security Kitchen Utility Associate Events 1 event(s) in the past 18 months Most recent security events: Elopement at [facility] 11/11/2022 13:20 - Patient eloped before treatment completed. - Patient with suicidal and/or homicidal ideations eloped. - Patient eloped with IV in place. Details: Patient LWBS. CRITERIA MET - Group Notification - PDMP - [facility] - Has Care Guidelines CARE PROVIDERS -, [place]- Dentist: Oncology Coordinator Replaced By [facility] PHONE: [phone] MARCELINO PERRY Internal Medicine 07/18/2018-Current PHONE: Unknown Aron Hannah Anesthesiology: Pain Medicine 07/18/2018-Current PHONE: Unknown Guidelines Source: [facility] Guidelines Date: 02/18/2022 Care Recommendation: PATIENT [...] Care ( 05/21/2019 ) Care History Medical/Surgical 03/18/2022 [facility] Patient admitted to CCU as Inpatient. 03/16/2022 [facility] - Patient is currently established with [facility]. If patient is seen in the ED during business hours. Please contact CHWs at [facility]. Care Recommendation: If this patient has had 5 or more Emergency Department visits in the last 12 months.\T\nbsp;Patient will require education on the scope and purpose of the ED as an acute care provider not a Primary Care Provider and should not be utilized for chronic conditions.\T\nbsp; These are guidelines and the provider should exercise clinical judgment when providing care. 01/05/2021 [facility] On going care for cyclic vomiting syndrome. E.D. VISIT COUNT (12 MO.) 7 [facility]. TOTAL 7 NOTE: Visits indicate total known visits. ED/UCC VISIT TRACKING (12 MO.) 07/03/2023 14:34 [facility] [place] TYPE: Emergency COMPLAINT: - VOMITING 05/16/2023 14:14 [facility] [place] TYPE: Emergency COMPLAINT: - VOMITING, ABD PAIN DIAGNOSES: - Allergy status to narcotic agent - Allergy status to other drugs, medicaments and biological substances - terminologist (current) use of anticoagulants - Nausea with vomiting, unspecified - Unspecified abdominal pain - Upper abdominal pain, unspecified 03/14/2023 12:07 [facility] [place] TYPE: Emergency COMPLAINT: - VOMITING DIAGNOSES: - Allergy status to narcotic agent - Allergy status to other drugs, medicaments and biological substances - correction (current) use of anticoagulants - Nausea with vomiting, unspecified - Other adjunct faculty for medical terminology (current) drug therapy - Unspecified abdominal pain 11/14/2022 15:44 [facility] [place] TYPE: Emergency COMPLAINT: - ABDOMINAL PAIN DIAGNOSES: - Allergy status to narcotic agent - Allergy status to other drugs, medicaments and biological substances - Left upper quadrant pain - correction (current) use of anticoagulants - Other senior care (current) drug therapy 11/11/2022 13:20 [facility] [place] TYPE: Emergency COMPLAINT: - ABD PAIN, VOMITING DIAGNOSES: - Allergy status to narcotic agent - Allergy status to other drugs, medicaments and biological substances - Cyclical vomiting syndrome unrelated to migraine - correction (current) use of anticoagulants - Other chronic pain - Other adjunct faculty for medical terminology (current) drug therapy - Personal history of [...] history of pulmonary embolism 09/29/2022 15:10 [facility] [place] TYPE: Emergency COMPLAINT: - ABDOMINAL PAIN DIAGNOSES: - Allergy status to narcotic agent - Allergy status to other drugs, medicaments and biological substances - Other senior care (current) drug therapy - Unspecified abdominal pain INPATIENT VISIT TRACKING (12 MO.) No inpatient visits to display in this time frame [email or web address]
[2023-07-03 17:20] VITALS: BP 111/73
== END 2023-07-03 17:20 | disposition home or self-care (01) ==
LOC: ED 14:34
DX: R11.15 Cyclical vomiting syndrome unrelated to migraine (principal); Z88.5 Allergy status to narcotic agent; Z88.8 Allergy status to other drugs, medicaments and biological substances; Z79.899 Other long term (current) drug therapy; Z79.01 Long term (current) use of anticoagulants
CPT/HCPCS: J1200; J2405; J3490; J7121

== ENCOUNTER 2023-09-05 07:55 | Day surgery (SDC) | payer MEDICARE, OTHER ==
[2023-08-31 13:21] VITALS: BP 112/77
[~2023-09-05] VITALS: Ht 165.1 cm; Wt 84.1 kg
[2023-09-05 08:18] VITALS: BP 123/78
--- NOTE | 2023-09-05 09:45 | NUR ---
IV PATENT DIRECTOR OF STATE AND DR SPENCE IN TO TALK WITH PT. UP TO BR.
--- NOTE | 2023-09-05 10:42 | NUR ---
09/05/23 1042 Dianne,Kay 1037 PT ARRIVED TO PACU ON 9L VIA MASK, ORAL AIRWAY IN PLACE. RESP EVEN AND UNLABORED.
[2023-09-05 11:21] VITALS: BP 126/83
--- NOTE | 2023-09-05 11:26 | NUR ---
TRYURNED FROM PACU IN PAIN WANTING PAIN PILLS AND TO SIT ON TOILET UNABLE TO VOID. GAVE PAIN MEDICINE AND AZO FOR BLADDER SPASMS.
--- NOTE | 2023-09-05 11:53 | NUR ---
STATES HAS BEEN HAVING PROBLEMS WITH CONSTIPATION AND WANTS SUPPOSITORY. CALL TO DR SPENCE AND ORDERED AND GIVEN.
--- NOTE | 2023-09-05 12:08 | OR ---
[facility] [address] [place], [place] [address] Signed DATE OF OPERATION: 09/05/2023 SURGEON: Kamlesh Spence MD PREOPERATIVE DIAGNOSIS: Interstitial cystitis. POSTOPERATIVE DIAGNOSIS: Interstitial cystitis. NAMES OF PROCEDURES: 1. Diagnostic cystoscopy. 2. Hydrodistention of bladder. ANESTHESIA: General. ESTIMATED BLOOD LOSS: 5 mL. COMPLICATIONS: None. DRAINS: None. SPECIMENS: None. INDICATIONS FOR PROCEDURE: Brody is a very pleasant 33-year-old female, who is well-known to me. She has a history of interstitial cystitis that I believe was initially triggered by her ketamine use that was given to her initially for her complex regional pain syndrome. She has been off the ketamine now for years, but still responds well to hydrodistention. She presents today for another routine hydrodistention. She is well aware of the risks and benefits of the procedure and has agreed to proceed today. OPERATIVE FINDINGS: 1. On cystoscopy, there was no evidence of any suspicious masses, lesions, or stones. She has a transverse scar on the dome of her bladder that is left over from her more Electronically Signed By: KAMLESH SPENCE MD 09/05/23 1208 PATIENT NAME: BRODY LINCOLN OPERATIVE REPORT DATE OF : 89 REPORT #: [id number] PHYSICIAN: KAMLESH SPENCE MD PCP: MADELYN NGUYEN MD REPORT IS CONFIDENTIAL AND NOT TO BE RELEASED WITHOUT AUTHORIZATION [facility] [address] [place], [place] [address] Signed severe cystitis that was present during her ketamine use. No other abnormalities noted on cystoscopy today. 2. The patient's bladder was distended for a total of 8.5 minutes and her measured bladder capacity today at the height of her distention was 525 mL. Once the patient's bladder was then drained, I did see a good deal of petechia along the bladder wall, however, I did not appreciate any Hunner's ulcers. DESCRIPTION OF PROCEDURE: After informed consent was obtained, the patient was taken back to the operating room. She was transferred from the [facility] to the operating room table, where general anesthesia was induced. She was placed in the dorsal lithotomy position and her genitalia were prepped and draped in standard sterile fashion. Using a 30-degree lens on a 22.5-Syriac introducer, rigid cystoscope was inserted through the urethra and into her bladder under direct visualization. Panendoscopic views of the bladder were then obtained. I then drained the patient's bladder completely and then began to fill with irrigation under gravity pressure. Once she was at maximum distention, she remained fully distended for a total of 8.5 minutes. I then drained the patient's bladder and measured the amount drained using a cylinder. Please see above findings. I reinserted my cystoscope and appreciated a good deal of hemorrhage that is more than usual for her. I then irrigated her bladder a couple of times gently with irrigation fluid. I completely drained her bladder and then removed the cystoscopic sheath. The procedure was then terminated. The patient tolerated the procedure well without any complication. She will now be transferred to the postanesthesia care unit in stable condition. DISPOSITION: I have left a voicemail with the patient describing today's procedure in detail and answering any potential questions that she may have. This was per her instruction. She will be sent home today with her usual oxycodone 10 mg one tablet p.o. q.4-6 hours p.r.n. pain, dispense #50, along with Zofran 8 mg one tablet q.6 hours p.r.n. nausea and vomiting, dispense #30, along with Diflucan 150 mg x1 dose with two refills. She will be scheduled to return to clinic in 3 to 4 months to prepare for another routine hydrodistention. Kamlesh Spence MD AR/MODL /[id number] Electronically Signed By: KAMLESH SPENCE MD 09/05/23 1208 PATIENT NAME: BRODY LINCOLN OPERATIVE REPORT DATE OF : [birth year] REPORT #: [id number] PHYSICIAN: KAMLESH SPENCE MD PCP: MADELYN NGUYEN MD REPORT IS CONFIDENTIAL AND NOT TO BE RELEASED WITHOUT AUTHORIZATION [address] [address] Signed Copies: ~ Electronically Signed By: KAMLESH SPENCE MD 09/05/23 1208 PATIENT NAME: BRODY LINCOLN OPERATIVE REPORT DATE OF : [birth year] REPORT #: [id number] PHYSICIAN: KAMLESH SPENCE MD PCP: MADELYN NGUYEN MD REPORT IS CONFIDENTIAL AND NOT TO BE RELEASED WITHOUT AUTHORIZATION
[2023-09-05 12:14] VITALS: BP 121/67
--- NOTE | 2023-09-05 12:16 | NUR ---
PAIN MEDICINE NOT WORKING YET.
--- NOTE | 2023-09-05 12:33 | NUR ---
CONTS TO C/O PAIN RECYCLING ATTENDANT ORDERED 325 ACETOMINOPHEN.
[2023-09-05 13:37] VITALS: BP 110/61
--- NOTE | 2023-09-05 14:08 | NUR ---
PT REQUESTS TO GO HOME. CALL TO DR SPENCE FOR UPDATE. VOIDED ONLY 50 MLS BLOODY URINE RED COLOR WITH BRIGHT YELLOW ORANGE. PAIN AT 6/10 SLIGHTLY IMPROVED. TO ENC LIGUIDS AND TO BOLUS 1 LITER LR IV THEN PT MAY GO HOME.
[2023-09-05 14:56] VITALS: BP 130/78
--- NOTE | 2023-09-05 14:59 | NUR ---
PT VOIDS APPROX 30 MLS RED ORANGE YELLOW WITH BLOOD LR CONTS BOLUSING ALMOST INFUSED.
--- NOTE | 2023-09-05 15:00 | NUR ---
RATES PAIN 6/10 BUT LYING QUIETLY NOT UP AND DOWN MUCH EARLIER SO MORE COMFORTABLE NOW.
== END 2023-09-05 15:15 | disposition home or self-care (01) ==
LOC: DS 07:55
PROVIDERS: ATTEND Urology
PROC: 0T7B8DZ Dilation of Bladder with Intraluminal Device, Via Natural or Artificial Opening Endoscopic (ICD-10-PCS; principal; 2023-09-05 10:30)
DX: N30.10 Interstitial cystitis (chronic) without hematuria (principal); E55.9 Vitamin D deficiency, unspecified; Z86.16 Personal history of COVID-19
CPT/HCPCS: 00910; A9270; J0690; J1170; J1885; J2001; J2250; J2405; J2704; J3490; J7121

== ENCOUNTER 2024-06-04 05:55 | Day surgery (SDC) | payer MEDICARE, OTHER ==
[2024-05-31 09:35] VITALS: BP 114/71
[~2024-06-04] VITALS: Ht 165.1 cm; Wt 88.6 kg
--- NOTE | ~2024-06-04 | OR ---
[facility] [address] [place], [place] [address] Draft DATE OF OPERATION: 06/04/2024 SURGEON: Clare Boyle DO PREOPERATIVE DIAGNOSES: 1. Needs IUD removal and reinsertion. 2. Severe dysmenorrhea. 3. Complex regional pain syndrome. 4. Pap smear screening. POSTOPERATIVE DIAGNOSES: 1. Needs IUD removal and reinsertion. 2. Severe dysmenorrhea. 3. Complex regional pain syndrome. 4. Pap smear screening. PROCEDURES PERFORMED: 1. IUD removal with reinsertion. 2. Pap smear under anesthesia. ANESTHESIA: General. ESTIMATED BLOOD LOSS: 0 mL. COMPLICATIONS: None. DRAINS: None. IMPLANTS: Mirena IUD lot number [id number], expiration October 2025. FINDINGS: Normal external genitalia with normal clitoris urethral meatus, bilateral [place]'s, and Bartholin's glands. Normal vagina and cervix. IUD strings were not initially visible. IUD was easily removed with packing forceps. Uterus sounded to 7.5 cm and new Mirena IUD was placed without difficulty. PATIENT NAME: BRODY FARAH OPERATIVE REPORT DATE OF : [birth year] REPORT #: [id number] PHYSICIAN: CLARE BOYLE (KRISTY) PCP: MADELYN NGUYEN MD REPORT IS CONFIDENTIAL AND NOT TO BE RELEASED WITHOUT AUTHORIZATION [facility] [address] [place], [place] [address] Draft INDICATIONS: Ms. Farah is a very pleasant 34-year-old female with a history of severe dysmenorrhea and complex pain syndrome. Symptoms have been well controlled with Mirena IUD. Mirena IUD has been in place since February of 2016, was inserted by Dr. Clifton Juan. She reports near amenorrhea. IUD removed and reinserted at the time of hydrodistention with Dr. Quach. She also is due for Pap smear screening. DESCRIPTION OF PROCEDURE: The patient was taken to the OR where a time-out was performed to confirm correct patient and correct procedure. General anesthesia was adequately established. The patient was prepped and draped in dorsal lithotomy position with feet in Yellofin stirrups. ICPs were on and running. The patient received Ancef [address] Quach for her portion of the procedure. The patient was prepped and draped in dorsal lithotomy position with her feet in Yellofin stirrups. A speculum was inserted and the cervix appeared normal with no IUD strings noted. Pap smear was performed and sent for cytology and HPV testing per packing forceps was used to gently grasp the IUD strings inside the cervical canal and the IUD was removed without difficulty. The cervix was cleaned with Betadine and the uterus was sounded to 7.5 cm. A new Mirena IUD was gently inserted to the fundus without difficulty. Strings were cut to [address] Quach then took over the remainder of her portion of the procedure. Please see her OP note for further details. DO VELMA Balbuena/RICHIE /[id number] Copies: ~ PATIENT NAME: BRODY FARAH OPERATIVE REPORT DATE OF : [birth year] REPORT #: [id number] PHYSICIAN: CLARE BOYLE) DO PCP: MADELYN NGUYEN MD REPORT IS CONFIDENTIAL AND NOT TO BE RELEASED WITHOUT AUTHORIZATION
[~2024-06-04 05:55] MED LIST changes: +LACTATED RINGER'S 1,000 ML IV SCH; +LINZESS290 MCG PO; +OZEMPIC0.25 MG/02 SUB-Q; +OZEMPIC2 MG/0.75 SUB-Q
[2024-06-04 06:16] VITALS: BP 119/79
[2024-06-04] MEDS ORDERED: FAMOTIDINE 20 MG/ 2 ML VIAL ONE (06:41)
[2024-06-04] MEDS ORDERED: DEXAMETHASONE SOD PHOS 4 MG/ML VIAL ONE (06:41)
[2024-06-04] MEDS ORDERED: propofoL 200 MG/20 ML VIAL ONE (06:41)
[2024-06-04] MEDS ORDERED: ondansetron HCL 4 MG/2 ML VIAL ONE (06:41)
[2024-06-04] MEDS ORDERED: KETOROLAC TROMETHAMINE 30 MG/ML VIAL ONE (06:41)
[2024-06-04] MEDS ORDERED: fentaNYL citrate 100 MCG/2 ML VIAL ONE (06:41)
[2024-06-04] MEDS ORDERED: METOCLOPRAMIDE HCL 10 MG/2 ML SDV ONE (06:41)
[2024-06-04] MEDS ORDERED: LACTATED RINGER'S 1,000 ML IV ONE (06:41)
[2024-06-04] MEDS ORDERED: MIDAZOLAM HCL 2 MG/2 ML VIAL ONE (06:41)
[2024-06-04] MEDS ORDERED: LIDOCAINE HCL 1% 5 ML SDV INJ ONE (07:00)
[2024-06-04] MEDS ORDERED: IBLOOD GLUCOSE TEST STRIP 1 EA TEST VI PRN ×2 (07:00→07:30)
[2024-06-04] MEDS ORDERED: CEFAZOLIN SODIUM 2 GM/20 ML SYR IV SCH (07:00)
[2024-06-04] MEDS ORDERED: METOCLOPRAMIDE HCL 10 MG/2 ML SDV IV PRN (07:30)
[2024-06-04] MEDS ORDERED: PROCHLORPERAZINE EDISYLATE 10 MG/2 ML VIAL IV PRN (07:30)
[2024-06-04] MEDS ORDERED: NALOXONE HCL 0.4 MG SYR IV PRN (07:30)
[2024-06-04] MEDS ORDERED: MEPERIDINE HCL 25 MG/1 ML VIAL IV PRN (07:30)
[2024-06-04] MEDS ORDERED: fentaNYL citrate 50 MCG/ML SDV IV PRN (07:30)
[2024-06-04] MEDS ORDERED: droPERidol 5 MG/2 ML VIAL IV PRN (07:30)
[2024-06-04] MEDS ORDERED: ondansetron HCL 4 MG/2 ML VIAL IV PRN ×2 (07:30→08:15)
[2024-06-04] MEDS ORDERED: HYDROmorphone HCL 1 MG/ML SYR IV PRN (08:15)
[2024-06-04] MEDS ORDERED: PROMETHAZINE HCL 25 MG TAB PO PRN (08:15)
[2024-06-04] MEDS ORDERED: OXYCODONE/APAP 5/325 TAB PO PRN (08:15)
[2024-06-04] MEDS ORDERED: PHENAZOPYRIDINE HCL 95 MG TAB PO PRN (08:15)
[2024-06-04] MEDS ORDERED: droPERidol 5 MG/2 ML VIAL ONE (08:17)
--- NOTE | 2024-06-04 09:08 | NUR ---
06/04/24 0908 Brandie Cardenas 0847-PT ARRIVED TO PACU WITH OPA IN PLACE AND 10L O2 VIA MASK. CHIN TILT REQUIRED FOR ADAQUATE OXYGENATION. PORT-A-CATH DRSG INTACT TO RUQ W/LR INFUSING. 0852-O2 TIRATED DOWN TO 6L/MASK. SATS REMAIN STABLE. RR APPEARS EVEN AND UNLABORED. 0900-PT WAKING AND OPA REMOVED. PT EASILY FALLS BACK ASLEEP. SATS REMAIN STABLE ON 6L/MASK. RR REMAINS EVEN AND UNLABORED.
[2024-06-04 09:41] VITALS: BP 109/57
[2024-06-04 10:37] VITALS: BP 125/68
[2024-06-04] MEDS ORDERED: HEParin SOD (PORCINE) 500 UNIT/5 ML ML IV ONE (11:00)
--- NOTE | 2024-06-04 11:25 | NUR ---
LE 0935 PATIENT BACK TO ROOM TREATMENT. PATIENT DROWSY BUT ORIENTED. BREATHING EQUAL AND UNLABORED. OXYGEN SATURATIONS 90% ABOVE ROOM AIR. PATIENT STATES PAIN IS TOLERBALE. PATIENT STATES "I HAVE NEVER FELT THIS GOOD BEFORE AFTER SUGERY." PATIETN DENIES BEING NAUSEATED. PATIENT SURGICAL SITE NO DRAINAGE. PATIENT GIVEN MEDS PER EMAR. IVF INFUSING. SCD'S ON RIGHT SIDE. LE 1015 PATIENT UP TO THE RESTROOM. VOIDED CLEAR AND YELLOW URINE SMALL AMOUNT OF RED TINGED 100 MLS. LE 1135 PATIENT HAS MET DISCHARGE CRITERIA. PATIENT MOTHER CALLED. IV D/C'D WNL. PATIENT DRESSED SELF WELL. GIVEN DISCHARGE INSTRUCTIONS. NO QUESTIONS. PATIENT WHEELED OUT OF FACILITY TO PRIVATE AUTO.
== END 2024-06-04 11:05 | disposition home or self-care (01) ==
LOC: DS 05:55
PROVIDERS: ATTEND Urology
PROC: 0TJB8ZZ Inspection of Bladder, Via Natural or Artificial Opening Endoscopic (ICD-10-PCS; principal; 2024-06-04 07:30)
PROC: 0U2DXHZ Change Contraceptive Device in Uterus and Cervix, External Approach (ICD-10-PCS; 2024-06-04 07:30)
DX: N30.10 Interstitial cystitis (chronic) without hematuria (principal); N94.6 Dysmenorrhea, unspecified; G90.50 Complex regional pain syndrome I, unspecified; Z12.4 Encounter for screening for malignant neoplasm of cervix; Z88.5 Allergy status to narcotic agent; Z88.8 Allergy status to other drugs, medicaments and biological substances
CPT/HCPCS: 84703; J0690; J1100; J1790; J1885; J2250; J2405; J2704; J2765; J3010; J7121

== ENCOUNTER 2024-10-15 08:50 | Day surgery (SDC) | payer MEDICARE, OTHER ==
[2024-10-01 08:35] VITALS: BP 113/80
[~2024-10-15] VITALS: Ht 165.1 cm; Wt 88.6 kg
[~2024-10-15 08:50] MED LIST changes: +BUTRANS1 EAC3 TD; +CEFAZOLIN SODIUM 2 GM/20 ML SYR IV SCH; +HYDROmorphone HCL 1 MG/ML SYR IV PRN; +HYOSCYAMINE SULFATE 0.375 MG TAB.ER.12H PO PRN; +IBLOOD GLUCOSE TEST STRIP 1 EA TEST VI PRN; +LIDOCAINE HCL 1% 5 ML SDV INJ ONE; +LINZESS145 MCG PO; +LINZESS72 MCG PO; +OXYCODONE/APAP 5/325 TAB PO PRN; +PHENAZOPYRIDINE HCL 95 MG TAB PO PRN; +TOPIRAMATE25 MG PO; +VALIUM5 MG PO; +ondansetron HCL 4 MG TAB PO PRN; +ondansetron HCL 4 MG/2 ML VIAL IV PRN
[2024-10-15 09:14] VITALS: BP 120/70
[2024-10-15] MEDS ORDERED: MIDAZOLAM HCL 2 MG/2 ML VIAL ONE (10:34)
[2024-10-15] MEDS ORDERED: fentaNYL citrate 100 MCG/2 ML VIAL ONE (10:34)
[2024-10-15] MEDS ORDERED: ondansetron HCL 4 MG/2 ML VIAL ONE (10:35)
[2024-10-15] MEDS ORDERED: ACETAMINOPHEN 1,000 MG/100 ML VIAL ONE (10:35)
[2024-10-15] MEDS ORDERED: KETOROLAC TROMETHAMINE 30 MG/ML VIAL ONE (10:35)
[2024-10-15] MEDS ORDERED: DEXAMETHASONE SOD PHOS 4 MG/ML VIAL ONE (10:35)
[2024-10-15] MEDS ORDERED: propofoL 200 MG/20 ML VIAL ONE (10:35)
[2024-10-15] MEDS ORDERED: LIDOCAINE HCL 2% 5 ML SDV ONE (10:37)
[2024-10-15] MEDS ORDERED: droPERidol 5 MG/2 ML VIAL ONE (10:50)
[2024-10-15] MEDS ORDERED: dexmedeTOMIDine HCl 200 MCG/2 ML VIAL ONE (10:59)
--- NOTE | 2024-10-15 11:42 | NUR ---
10/15/24 1142 Christie Jonas 1124-PT ARRIVES TO PACU RESTING SEMI FOWLERS, PT DENIES PAIN OR NAUSEA BUT REPORTS THE URGE TO URINATE, PT PLACED ON A BED ARELLANO BUT UNABLE TO URINATE. VSS ON RA, RR EVEN AND UNLABORED. 1134-PT C/O 8/10 PAIN, IV AND ORAL PAIN MEDS GIVEN.
[2024-10-15] MEDS ORDERED: IBLOOD GLUCOSE TEST STRIP 1 EA TEST VI PRN (11:45)
[2024-10-15] MEDS ORDERED: fentaNYL citrate 50 MCG/ML SDV IV PRN (11:45)
[2024-10-15] MEDS ORDERED: HYDROmorphone HCL 1 MG/ML SYR IV PRN (11:45)
[2024-10-15] MEDS ORDERED: NALOXONE HCL 0.4 MG SYR IV PRN (11:45)
[2024-10-15] MEDS ORDERED: ondansetron HCL 4 MG/2 ML VIAL IV PRN (11:45)
--- NOTE | 2024-10-15 12:20 | NUR ---
PT ARRIVES TO DS FROM PACU VIA STRETCHER. PT IS A&O AND ASKING APPROPRIATE QUESTIONS AT THIS TIME. PT REPORTS PAIN IS 5/10 AND REQUESTS ADDITIONAL TABLET OF TITRATION TO CORRECT DOSE OF 2 TABLETS AT THIS TIME. PT TOLERATING SIPS OF ICE WATER WITHOUT DIFFICULTY. CALL LIGHT WITHIN REACH. REPORT RECEIVED FROM WAN BUCIO.
[2024-10-15 12:21] VITALS: BP 114/56
--- NOTE | 2024-10-15 12:40 | NUR ---
1 TABLET PROVIDED TO TITRATE PERCOCET DOSE TO CORRECT DOSE OF 2 TABLETS PRESCRIBED. PT REQUESTS TO GO TO BATHROOM AT THIS TIME. PT SITS AT BEDSIDE AND STATES NO DIZZINESS OR NAUSEA AT THIS TIME. PT TO RESTROOM FOR 100 ML OF YELLOW/PINK URINE VOID W/NO BLOOD CLOTS PRESENT. PT BACK TO BED AT THIS TIME. CALL LIGHT WITHIN REACH. PT USING OWN HEATING PAD SHE BROUGHT.
--- NOTE | 2024-10-15 13:25 | NUR ---
IN PT ROOM FOR VS AND ASSESSMENT. NO ACUTE CHANGES FROM PREVIOUS ASSESSMENT. PT STATES PAIN HAS DECREASED TO 4/10 AND STATES IT IS TOLERABLE AT THIS TIME. PT CALLING MOTHER FOR RIDE AND GETTING DRESSED. CALL LIGHT WITHIN REACH.
[2024-10-15] MEDS ORDERED: PHENAZOPYRIDINE HCL 100 MG TAB PO PRN ×2 (13:30)
[2024-10-15] MEDS ORDERED: HEParin SOD (PORCINE) 500 UNIT/5 ML ML IV ONE ×2 (13:30→13:45)
--- NOTE | 2024-10-15 13:50 | NUR ---
PORT DEACCESSED, SEE EMAR FOR NOTES. BANDAID IN PLACE. DC EDUCATION PROVIDED AND PT STATES VERBAL UNDERSTANDING OF DC EDUCATION AT THIS TIME. PT OFF OF UNIT VIA WC TO PASSENGER SIDE OF MOTHER'S VEHICLE. PT REPORTS NO FURTHER NEEDS OR QUESTIONS AT THIS TIME. ALL BELONGINGS IN PT POSSESSION.
[2024-10-15 13:52] VITALS: BP 127/74
[2024-10-15] MEDS ORDERED: SEVOFLURANE 250 ML BTL INH ONE (15:36)
== END 2024-10-15 13:55 | disposition home or self-care (01) ==
LOC: DS 08:50
PROVIDERS: ATTEND Urology
PROC: 0T7B8ZZ Dilation of Bladder, Via Natural or Artificial Opening Endoscopic (ICD-10-PCS; principal; 2024-10-15 10:00)
DX: N30.10 Interstitial cystitis (chronic) without hematuria (principal); Z79.899 Other long term (current) drug therapy; Z88.8 Allergy status to other drugs, medicaments and biological substances; Z88.5 Allergy status to narcotic agent
CPT/HCPCS: 00910; J0131; J0690; J1100; J1171; J1790; J1885; J2003; J2250; J2405; J2704; J3010; J7121

== ENCOUNTER 2025-03-04 06:00 | Day surgery (SDC) | payer MEDICARE, OTHER ==
[2025-02-25 09:57] VITALS: BP 115/66
[~2025-03-04] VITALS: Ht 165.1 cm; Wt 88.6 kg
[~2025-03-04 06:00] MED LIST changes: -CEFAZOLIN SODIUM 2 GM/20 ML SYR IV SCH; -HYDROmorphone HCL 1 MG/ML SYR IV PRN; -HYOSCYAMINE SULFATE 0.375 MG TAB.ER.12H PO PRN; -IBLOOD GLUCOSE TEST STRIP 1 EA TEST VI PRN; -LIDOCAINE HCL 1% 5 ML SDV INJ ONE; -OXYCODONE/APAP 5/325 TAB PO PRN; -PHENAZOPYRIDINE HCL 95 MG TAB PO PRN; -ondansetron HCL 4 MG TAB PO PRN; -ondansetron HCL 4 MG/2 ML VIAL IV PRN
[2025-03-04 06:12] VITALS: BP 110/66
[2025-03-04] MEDS ORDERED: LIDOCAINE HCL 1% 5 ML SDV INJ ONE (07:00)
[2025-03-04] MEDS ORDERED: IBLOOD GLUCOSE TEST STRIP 1 EA TEST VI PRN ×2 (07:00→08:30)
[2025-03-04] MEDS ORDERED: CEFAZOLIN SODIUM 2 GM/20 ML SYR IV SCH (07:00)
[2025-03-04] MEDS ORDERED: propofoL 200 MG/20 ML VIAL ONE (07:12)
[2025-03-04] MEDS ORDERED: fentaNYL citrate 100 MCG/2 ML VIAL ONE (07:12)
[2025-03-04] MEDS ORDERED: LIDOCAINE HCL 2% 5 ML SDV ONE (07:12)
[2025-03-04] MEDS ORDERED: ACETAMINOPHEN 1,000 MG/100 ML VIAL ONE (07:12)
[2025-03-04] MEDS ORDERED: KETOROLAC TROMETHAMINE 30 MG/ML VIAL ONE (07:12)
[2025-03-04] MEDS ORDERED: DEXAMETHASONE SOD PHOS 4 MG/ML VIAL ONE (07:13)
[2025-03-04] MEDS ORDERED: KETAMINE in NS 50 MG/5 ML SYR ONE (07:13)
[2025-03-04] MEDS ORDERED: ondansetron HCL 4 MG/2 ML VIAL ONE (07:13)
--- NOTE | 2025-03-04 07:35 | NUR ---
VISITED DURING SPIRITUAL CARE ROUNDS. PT IN OVERALL GOOD SPIRITS; SUPPORTED BY SISTER IN ROOM. NO IMMEDIATE NEEDS. UTILITY TENDER CARDING PROVIDED SUPPORTIVE PRESENCE, HOSPITALITY, PRAYER, FACILITATED INTERACTION WITH THERAPY ANIMAL. PT EXPRESSED INCREASED CALMNESS, GRATITUDE.
[2025-03-04] MEDS ORDERED: ondansetron HCL 4 MG/2 ML VIAL IV PRN ×2 (08:00→08:30)
[2025-03-04] MEDS ORDERED: HYDROmorphone HCL 1 MG/ML SYR IV PRN ×2 (08:00→08:30)
[2025-03-04] MEDS ORDERED: HYOSCYAMINE SULFATE 0.375 MG TAB.ER.12H PO PRN (08:00)
[2025-03-04] MEDS ORDERED: OXYCODONE/APAP 5/325 TAB PO PRN (08:00)
[2025-03-04] MEDS ORDERED: NALOXONE HCL 0.4 MG SYR IV PRN (08:30)
[2025-03-04] MEDS ORDERED: METOCLOPRAMIDE HCL 10 MG/2 ML SDV IV PRN (08:30)
[2025-03-04] MEDS ORDERED: fentaNYL citrate 50 MCG/ML SDV IV PRN (08:30)
--- NOTE | 2025-03-04 09:07 | NUR ---
03/04/25 0907 Darlin Mtz 0827 PT ARRIVED IN PACU NON RESPONSIVE TO NOXIOUS STIMULI WITH OPA IN PLACE. 0836 PT REACTIVE. OPA REMOVED. 0840 C/O URGE TO VOID. BEDPAN PLACED UNDER PT. 0847 UNABLE TO VOID. C/O BLADDER PAIN AND UNABLE TO RATE AT THIS TIME. FENTANYL 50MCG GIVEN IV. 0850 RESTING. REU. 0902 C/O BLADDER PAIN 6-05/23. FENTANYL 50MCG GIVEN IV.
[2025-03-04] MEDS ORDERED: PHENAZOPYRIDINE HCL 100 MG TAB ONE (09:13)
[2025-03-04] MEDS ORDERED: HEParin SOD (PORCINE) 500 UNIT/5 ML ML ONE (09:23)
[2025-03-04 09:27] VITALS: BP 96/67
[2025-03-04] MEDS ORDERED: HEParin SOD (PORCINE) 500 UNIT/5 ML ML IV ONE (10:00)
[2025-03-04] MEDS ORDERED: PHENAZOPYRIDINE HCL 100 MG TAB PO ONE (10:00)
== END 2025-03-04 09:40 | disposition home or self-care (01) ==
LOC: DS 06:00
PROVIDERS: ATTEND Urology
PROC: 0T7B8ZZ Dilation of Bladder, Via Natural or Artificial Opening Endoscopic (ICD-10-PCS; principal; 2025-03-04 07:30)
DX: N30.10 Interstitial cystitis (chronic) without hematuria (principal); R73.03 Prediabetes; Z79.899 Other long term (current) drug therapy; Z88.5 Allergy status to narcotic agent; Z88.8 Allergy status to other drugs, medicaments and biological substances
CPT/HCPCS: 00910; J0131; J0690; J1100; J1885; J2003; J2405; J2704; J3010; J3490; J7121

== ENCOUNTER 2025-05-12 10:44 | Emergency (ER) | payer MEDICARE, OTHER ==
[~2025-05-12] VITALS: Ht 165.1 cm; Wt 87.9 kg
[~2025-05-12 10:44] MED LIST changes: -LACTATED RINGER'S 1,000 ML IV SCH
[2025-05-12] MEDS ORDERED: KETAMINE HCL IN NACL, ISO-OSM 100 ML IV SCH (11:30)
[2025-05-12] MEDS ORDERED: SODIUM CHLORIDE 0.9% 1,000 ML IV ONE (11:30)
[2025-05-12 11:36] LABS: BILIRUBIN, URINE NEGATIVE (negative); BLOOD/HGB, URINE NEGATIVE (Negative); KETONE, URINE TRACE (Negative); LEUK ESTERASE, URINE TRACE (negative); NITRITE, URINE NEGATIVE (negative); PH, URINE 5.5 (5-7)
[2025-05-12 11:42] LABS: EPITHELIAL CELLS, URINE SQUAMOUS 3+ /lpf (0-1+)
[2025-05-12 11:43] LABS: BACTERIA, URINE RARE /hpf (negative); CASTS, URINE NONE SEEN \\lpf; COLLECTION TYPE, URINE CLEAN CATCH; CRYSTALS, URINE NONE SEEN (0-1+); RED BLOOD CELLS, URINE 0-1 /hpf (0-5); REFLEX CULTURE, URINE No (No)
[2025-05-12 11:49] LABS: BASOPHILS 0.3 % (0.1-1.2); EOSINOPHILS 2.2 % (0.7-5.8); HEMATOCRIT 45.5 % (34.1-44.9); HEMOGLOBIN 14.7 g/dL (11.2-15.7); LYMPHOCYTES 11.8 % (19.3-51.7); MCH 29.3 PG (25.6-32.2); MCHC 32.3 g/dL (32.2-35.5); MCV 90.6 fL (79.4-94.8); MONOCYTES 3.8 % (4.7-12.5); NEUTROPHILS 81.5 % (34.0-71.1); PLATELET COUNT 298 K/uL (182-369); RBC 5.02 M/uL (3.93-5.22)
[2025-05-12 12:05] LABS: ALBUMIN 3.8 g/dL (3.4-5.0); BILIRUBIN, TOTAL 1.8 mg/dL (0.2-1.0); BUN/CREATININE RATIO 16.66 (6.0-28.6); CALCIUM 8.6 mg/dL (8.5-10.1); CREATININE, SERUM 0.9 mg/dL (0.55-1.02); MAGNESIUM 2.1 mg/dL (1.8-2.4); PROTEIN, TOTAL 7.6 g/dL (6.4-8.2)
[2025-05-12 13:11] VITALS: BP 128/71
[2025-05-12] MEDS ORDERED: HEParin SOD (PORCINE) 500 UNIT/5 ML ML IV ONE (13:15)
== END 2025-05-12 13:11 | disposition home or self-care (01) ==
LOC: ED 10:44
PROVIDERS: Emergency Medicine
DX: G89.4 Chronic pain syndrome (principal); R10.9 Unspecified abdominal pain; R11.2 Nausea with vomiting, unspecified; R19.7 Diarrhea, unspecified
CPT/HCPCS: 36415; 80053; 81001; 83735; 84703; 85025; 96374; 96375; 99284-25; J3490; J7030

== ENCOUNTER 2025-09-16 06:05 | Day surgery (SDC) | payer MEDICARE, OTHER ==
[~2025-09-16] VITALS: Ht 165.1 cm; Wt 86.0 kg
[~2025-09-16 06:05] MED LIST changes: +HYDROmorphone HCL 1 MG/ML SYR IV PRN; +HYOSCYAMINE SULFATE 0.375 MG TAB.ER.12H PO PRN; +KETOROLAC TROMETHAMINE 15 MG/ML VIAL IV PRN; +LACTATED RINGER'S 1,000 ML IV SCH; +MOUNJARO7.5 MG/0.5 SUB-Q; +OXYCODONE/APAP 5/325 TAB PO PRN; +PHENAZOPYRIDINE HCL 100 MG TAB PO PRN; +PROMETHAZINE HCL 25 MG TAB PO PRN
[2025-09-16 06:15] VITALS: BP 116/60
[2025-09-16] MEDS ORDERED: IBLOOD GLUCOSE TEST STRIP 1 EA TEST VI PRN ×2 (07:00)
[2025-09-16] MEDS ORDERED: fentaNYL citrate 50 MCG/ML SDV IV PRN (07:00)
[2025-09-16] MEDS ORDERED: NALOXONE HCL 0.4 MG SYR IV PRN (07:00)
[2025-09-16] MEDS ORDERED: CEFAZOLIN SODIUM 2 GM in SODIUM CHLORIDE 0.9% 100 ML IV SCH (07:00)
[2025-09-16] MEDS ORDERED: LIDOCAINE HCL 1% 5 ML SDV INJ ONE (07:00)
[2025-09-16] MEDS ORDERED: KETAMINE in NS 50 MG/5 ML SYR ONE (07:06)
[2025-09-16] MEDS ORDERED: fentaNYL citrate 100 MCG/2 ML VIAL ONE (07:06)
[2025-09-16] MEDS ORDERED: MIDAZOLAM HCL 2 MG/2 ML VIAL ONE (07:06)
[2025-09-16] MEDS ORDERED: KETOROLAC TROMETHAMINE 30 MG/ML VIAL ONE (07:07)
[2025-09-16] MEDS ORDERED: LIDOCAINE HCL 2% 5 ML SDV ONE (07:07)
[2025-09-16] MEDS ORDERED: DEXAMETHASONE SOD PHOS 4 MG/ML VIAL ONE (07:07)
[2025-09-16] MEDS ORDERED: ACETAMINOPHEN 1,000 MG/100 ML VIAL ONE (07:08)
--- NOTE | 2025-09-16 08:37 | NUR ---
09/16/25 0837 Meghan Hunter 0817: PT ARRIVED TO PACU VIA STRETCHER. PT NON AROUSABLE AT THIS TIME. PT ON 6L VIA MASK. 0824: PT AROUSABLE AND TITRATED TO RA AT THIS TIME. PT COMPLAINING OF PAIN SOON SHE WOKE UP. PT RATING PAIN 7/10 AT THIS TIME. PT HAS NO COMPLAINTS OF NAUSEA. 0828: PT GIVEN 50MG FENTANYL IV AT THIS TIME FOR PAIN. 0830: PT VOIDED ON BED ARELLANO AT THIS TIME.
[2025-09-16 09:24] VITALS: BP 118/69
--- NOTE | 2025-09-16 09:28 | NUR ---
0920- PT ARRIVES FROM PACU IN STRETCHER. PT IS MOVING LEGS AND ARMS AND IS RESTLESS. PT REPORTS 6/10 PAIN. BEDSIDE REPORT RECEIVED FROM FORTUNATO YU. PT REQUESTS PHONE TO LISTEN TO CAODAISM MUSIC. PT BECOMES LESS RESTLESS IN STRETCHER. LR INFUSING IN HER PORT ACCESS. CALL LIGHT IN REACH. QUESTIONS AND CONCERNS ANSWERED. VSS. BED IS LOCKED IN THE LOWEST POSTION.
--- NOTE | 2025-09-16 09:45 | NUR ---
0945-PT RATES PAIN 04/23. DILAUDID GIVEN PER EMAR.
--- NOTE | 2025-09-16 10:05 | NUR ---
LE 1005-PT STATES PAIN IS STARTING TO GET BETTER. PT UP TO THE RESTROOM. PT ABLE TO VOID. LE 1010-PT BACK TO BED. PT WILL PUT LABORATORY APPARATUS GLASS BLOWER LIGHT WHEN READY TO GET DRESSED.
[2025-09-16 10:45] VITALS: BP 121/72
[2025-09-16] MEDS ORDERED: HEParin SOD (PORCINE) 500 UNIT/5 ML ML IV ONE (11:00)
--- NOTE | 2025-09-16 11:10 | NUR ---
1108- VITAL SIGNS OBTAINED. DISCAHRGE PAPERWORK AND EDUCATION GIVEN. ALL QUESTIONS AND CONCERNS ANSWERED. PT IS ABLE TO DRESS INDEPENDENTLY. PORT DEACCESSED WNL. PT HAS ALL BELONGINGS. PT REPORTS PAIN IS A 4/10 AND IS MUCH MORE TOLERABLE. PT DENIES NAUSEA. PT IS UP TO THE RESTROOM. PT IS THEN ABLE TO AMBULATE TO HOSPITAL WHEELCHAIR AND TRANSFER SAFELY WITH A STEADY AND EVEN GAIT. PT DC'S FROM DAY SURGERY AT THIS TIME.
== END 2025-09-16 11:08 | disposition home or self-care (01) ==
LOC: DS 06:05
PROVIDERS: ATTEND Urology
PROC: 0T7B8ZZ Dilation of Bladder, Via Natural or Artificial Opening Endoscopic (ICD-10-PCS; principal; 2025-09-16 07:30)
DX: N30.10 Interstitial cystitis (chronic) without hematuria (principal); R73.03 Prediabetes; Z88.5 Allergy status to narcotic agent; Z88.8 Allergy status to other drugs, medicaments and biological substances; Z86.16 Personal history of COVID-19; Z90.49 Acquired absence of other specified parts of digestive tract
CPT/HCPCS: 00910; J0131; J0688; J1100; J1171; J1885; J2003; J2250; J2704; J3010; J3490; J7121

== ENCOUNTER 2025-10-23 15:15 | Emergency (ER) | payer MEDICARE, OTHER ==
[~2025-10-23] VITALS: Ht 165.1 cm; Wt 88.4 kg
--- OUTSIDE RECORDS SUMMARY | ~2025-10-23 | XMS | Continuity of Care Document ---
Demographics + + + | Address | [address] | | | [place] [address] | + + + | Preferred Language | Unknown | + + + | Marital Status | Never | + + + | Denominational Affiliation | Unknown | + + + | Race | White | + + + | Ethnic Group | Not or | + + + Author + + + | Author | [facility] | + + + | Organization | [facility] | + + + | Address | [address] | | | [place] [address] | + + + | Phone | | + + + Care Team Providers + + + + | Care Chair Pad Maker Name | Role | Phone | + + + + Unavailable | Unavailable | + + + + Unavailable | Unavailable | + + + + Allergies and Intolerances + + + + + + | date | description | facility | reaction | severity | + + + + + + | 2025-09-16 | Haloperidol | [facility] - | (no reaction) | Moderate | | 00:00 | | [facility] | | | + + + + + + | 2025-09-16 | | [facility] - | Anxiety | Mild | | 00:00 | Prochlorperazin | [facility] | | | + + + + + + | 2025-09-16 | Morphine | [facility] - | (no reaction) | Severe | | 00:00 | | [facility] | | | + + + + + + | 2025-09-16 | Haloperidol | [facility] - | (no reaction) | Moderate | | 00:00 | | [facility] | | | + + + + + + | 2025-09-16 | Morphine | [facility] - | (no reaction) | Severe | | 00:00 | | [facility] | | | + + + + + + | 2025-09-16 | Morphine | [facility] - | (no reaction) | Severe | | 00:00 | | [facility] | | | + + + + + + | 2025-09-16 | | [facility] - | Anxiety | Mild | | 00:00 | Prochlorperazin | [facility] | | | + + + + + + | 2025-09-16 | Haloperidol | [facility] - | (no reaction) | Moderate | | 00:00 | | [facility] | | | + + + + + + | 2025-09-16 | | [facility] - | Anxiety | Mild | | 00:00 | Prochlorperazin | [facility] | | | + + + + + + Encounters No information. Functional Status No information. Immunizations + + + + | date | description | facility | + + + + | (no date) | Influenza, Seasonal, | [facility] | | | Injectable, Preservative | [facility] | | | Free | | + + + + | (no date) | Influenza, Injectable, | [facility] | | | Quadrivalent, Preservative | [facility] | + + + + Medications + + + + | date | description | facility | + + + + | (no date) | DEXTROMETHORPHAN | [facility] | | | HBR/QUINIDINE | [facility] | + + + + | (no date) | LORAZEPAM | [facility] | | | | [facility] | + + + + | (no date) | ONDANSETRON | [facility] | | | | [facility] | + + + + | (no date) | OXYCODONE | [facility] | | | HCL/ACETAMINOPHEN | [facility] | + + + + | (no date) | OXYCODONE HCL | [facility] | | | | [facility] | + + + + | (no date) | OXYCODONE HCL | [facility] | | | | [facility] | + + + + | (no date) | OXYCODONE HCL | [facility] | | | [facility] | + + + + | (no date) | MTH/ME BLUE/SOD | [facility] | | | PHOS/PHEN/HYOS | [facility] | + + + + | (no date) | METHYLPHENIDATE HCL | [facility] | | | | [facility] | + + + + | (no date) | DEXTROMETHORPHAN HBR | [facility] | | | | [facility] | + + + + | (no date) | GLYCERIN | [facility] | | | [facility] | + + + + | (no date) | MELATONIN | [facility] | | | | [facility] | + + + + | (no date) | LINACLOTIDE | [facility] | | | [facility] | + + + + | (no date) | APIXABAN | [facility] | | | | [facility] | + + + + | (no date) | BUPRENORPHINE | [facility] | | | | [facility] | + + + + | (no date) | NALTREXONE HCL | [facility] | | | | [facility] | + + + + | (no date) | MELOXICAM | [facility] | | | | [facility] | + + + + | (no date) | Buprenorphine | [facility] | | | | [facility] | + + + + | (no date) | BREXPIPRAZOLE | [facility] [place] [place] | | | | [facility] | + + + + | (no date) | KETOROLAC TROMETHAMINE | [facility] [place] [place] | | | | [facility] | + + + + | (no date) | FLUTICASONE PROPIONATE 50 | [facility] [place] [place] | | | MCG | [facility] | + + + + | (no date) | Linaclotide | [facility] | | | | [facility] | + + + + | (no date) | BACLOFEN | [facility] | | | | [facility] | + + + + | (no date) | LORAZEPAM | [facility] | | | | [facility] | + + + + | (no date) | MINOCYCLINE HCL | [facility] | | | [facility] | + + + + | (no date) | ONDANSETRON HCL | [facility] | | | [facility] | + + + + | (no date) | LAMOTRIGINE | [facility] | | | [facility] | + + + + | (no date) | CIPROFLOXACIN HCL | [facility] | | | [facility] | + + + + | (no date) | ALUMINUM CHLORIDE | [facility] | | | [facility] | + + + + | (no date) | LORAZEPAM | [facility] | | | [facility] | + + + + | (no date) | METOCLOPRAMIDE HCL | [facility] | | | | [facility] | + + + + | (no date) | SUCRALFATE | [facility] | | | | [facility] | + + + + | (no date) | LAMOTRIGINE | [facility] | | | | [facility] | + + + + | (no date) | ANTOINETTE ROOT | [facility] | | | | [facility] | + + + + | (no date) | Semaglutide | [facility] [place] [place] | | | | [facility] | + + + + | (no date) | Tirzepatide | [facility] [place] [place] | | | | [facility] | + + + + | (no date) | PANTOPRAZOLE SODIUM | [facility] [place] [place] | | | | [facility] | + + + + | (no date) | AMOXICILLIN | [facility] | | | | [facility] | + + + + | (no date) | CIPROFLOXACIN HCL | [facility] | | | | [facility] | + + + + | (no date) | FOLIC ACID | [facility] | | | | [facility] | + + + + | (no date) | GRANISETRON HCL | [facility] | | | | [facility] | + + + + | (no date) | IBUPROFEN | [facility] [place] [place] | | | | [facility] | + + + + | (no date) | METOCLOPRAMIDE HCL | [facility] | | | | [facility] | + + + + | (no date) | ONDANSETRON | [facility] | | | | [facility] | + + + + | (no date) | BELLADONNA ALKALOIDS/OPIUM | [facility] | | | | [facility] | + + + + | (no date) | CYANOCOBALAMIN (VITAMIN | [facility] [place] [place] | | | B-12) | [facility] | + + + + | (no date) | PANTOPRAZOLE SODIUM | [facility] [place] [place] | | | | [facility] | + + + + | (no date) | SUCRALFATE | [facility] [place] [place] | | | | [facility] | + + + + | (no date) | Atomoxetine HCl | [facility] [place] [place] | | | | [facility] | + + + + | (no date) | LACTULOSE | [facility] [place] [place] | | | | [facility] | + + + + | (no date) | NITROFURANTOIN MONOHYD | [facility] [place] [place] | | | MACROCR | [facility] | + + + + | (no date) | DULOXETINE HCL | [facility] [place] [place] | | | | [facility] | + + + + | (no date) | DULOXETINE HCL | [facility] [place] [place] | | | | [facility] | + + + + | (no date) | PREGABALIN | [facility] [place] [place] | | | | [facility] | + + + + | (no date) | ALBUTEROL SULFATE | [facility] [place] [place] | | | | [facility] | + + + + | (no date) | LEVONORGESTREL | [facility] [place] [place] | | | | [facility] | + + + + | (no date) | CYCLOBENZAPRINE HCL | [facility] [place] [place] | | | | [facility] | + + + + | (no date) | CYCLOBENZAPRINE HCL | [facility] [place] [place] | | | | [facility] | + + + + | (no ) | KETOROLAC TROMETHAMINE | [facility] [place] [place] | | | | [facility] | + + + + | (no ) | IMIPRAMINE HCL | [facility] [place] [place] | | | | [facility] | + + + + | (no ) | Enoxaparin Sodium | [facility] [place] [place] | | | | [facility] | + + + + | (no date) | ENOXAPARIN SODIUM | [facility] | | | | [facility] | + + + + | (no date) | TRAZODONE HCL | [facility] | | | [facility] | + + + + | (no date) | HYDROCODONE | [facility] | | | BIT/ACETAMINOPHEN | [facility] | + + + + | (no date) | HYDROCODONE/APAP | [facility] | | | (10-325MG) | [facility] | + + + + | (no date) | HYDROCODONE | [facility] | | | BIT/ACETAMINOPHEN | [facility] | + + + + | (no date) | ALBUTEROL SULFATE | [facility] | | | | [facility] | + + + + | (no date) | KETOROLAC TROMETHAMINE | [facility] | | | | [facility] | + + + + | (no date) | KETOROLAC TROMETHAMINE | [facility] | | | [facility] | + + + + | (no date) | POLYETHYLENE GLYCOL 3350 | [facility] | | | | [facility] | + + + + | (no date) | ONDANSETRON | [facility] | | | [facility] | + + + + | (no date) | CLONIDINE HCL | [facility] [place] [place] | | | | [facility] | + + + + | (no date) | HYDROmorphone HCL | [facility] [place] [place] | | | | [facility] | + + + + | (no date) | PEG 3350/NA | [facility] [place] [place] | | | SULF,BICARB,CL/KCL | [facility] | + + + + | (no date) | PROMETHAZINE HCL | [facility] [place] [place] | | | | [facility] | + + + + | (no date) | PROMETHAZINE HCL | [facility] [place] [place] | | | | [facility] | + + + + | (no date) | PROMETHAZINE HCL | [facility] | | | [facility] | + + + + | (no date) | PROMETHAZINE HCL | [facility] | | | | [facility] | + + + + | (no date) | BUPROPION HCL | [facility] | | | [facility] | + + + + | (no date) | HYDROXYZINE PAMOATE | [facility] | | | | [facility] | + + + + | (no date) | HYDROXYZINE HCL | [facility] | | | | [facility] | + + + + | (no date) | MEMANTINE HCL | [facility] [place] [place] | | | | [facility] | + + + + | (no date) | MEMANTINE HCL | [facility] [place] [place] | | | | [facility] | + + + + Problems No information. Procedures No information. Results/Labs +--------+--------+ +---------+--------+---------+ | test | date | facility | value | unit | notes | +--------+--------+ +---------+--------+---------+ + + | Result panel 1 | + + + + + +---------+ + + | WBC # Bld | 2025-09-11 | | 10.16 | (missing) | (missing) | | Auto | 10:37:08 | [facility] | | | | + + + +---------+ + + + + | Result panel 2 | + + + + + +--------+ + + | Lymphocytes | 2025-09-11 | | 15.7 | (missing) | (missing) | | NFr Bld | 10:37:08 | [facility] | | | | | Auto | [facility] | | | | + + + +--------+ + + + + | Result panel 3 | + + + + + +-------+ + + | Monocytes | 2025-09-11 | | 6.3 | (missing) | (missing) | | NFr Bld Auto | 10:37:08 | [facility] | | | | + + + +-------+ + + + + | Result panel 4 | + + + + + +-----+ + + | Eosinophil | 2025-09-11 | | 0 | (missing) | (missing) | | NFr Bld Auto | 10:37:08 | [facility] | | | | + + + +-----+ + + + + | Result panel 5 | + + + + + +-------+ + + | Basophils | 2025-09-11 | | 0.1 | (missing) | (missing) | | NFr Bld Auto | 10:37:08 | [facility] | | | | + + + +-------+ + + + + | Result panel 6 | + + + + + +--------+ + + | RBC # Bld | 2025-09-11 | | 4.72 | (missing) | (missing) | | Auto | 10:37:08 | [facility] | | | | + + + +--------+ + + + + | Result panel 7 | + + + + + +--------+ + + | Hgb | 2025-09-11 | | 13.9 | (missing) | (missing) | | Bld-mCnc | 10:37:08 | [facility] | | | | + + + +--------+ + + + + | Result panel 8 | + + + + + +-------+---------+ + | Glucose | 2025-09-11 | | 111 | mg/dL | (missing) | | SerPl-mCnc | 10:37:08 | [facility] | | | | + + + +-------+---------+ + + + | Result panel 9 | + + + + + +------+---------+ + | BUN | 2025-09-11 | | 15 | mg/dL | (missing) | | SerPl-Sujey | 10:37:08 | [facility] | | | | + + + +------+---------+ + + + | Result panel 10 | + + + + + +--------+---------+ + | Creat | 2025-09-11 | | 0.76 | mg/dL | (missing) | | SerPl-mCnc | 10:37:08 | [facility] | | | | + + + +--------+---------+ + + + | Result panel 11 | + + + + + +-------+ + + | eGFRcr | 2025-09-11 | | 106 | (missing) | (missing) | | SerPlBld | 10:37:08 | [facility] | | | | | CKD-EPI 2020 | [facility] | | | | + + + +-------+ + + + + | Result panel 12 | + + + + + +---------+ + + | BUN/Creat | 2025-09-11 | | 19.73 | (missing) | (missing) | | SerPl | 10:37:08 | [facility] | | | | + + + +---------+ + + + + | Result panel 13 | + + + + + +-------+ + + | Sodium | 2025-09-11 | | 140 | (missing) | (missing) | | SerPl-sCnc | 10:37:08 | [facility] | | | | + + + +-------+ + + + + | Result panel 14 | + + + + + +--------+ + + | Hct VFr.DF | 2025-09-11 | | 42.1 | (missing) | (missing) | | Bld Auto | 10:37:08 | [facility] | | | | + + + +--------+ + + + + | Result panel 15 | + + + + + +-------+ + + | Potassium | 2025-09-11 | | 3.8 | (missing) | (missing) | | SerPl-sCnc | 10:37:08 | [facility] | | | | + + + +-------+ + + + + | Result panel 16 | + + + + + +-------+ + + | Chloride | 2025-09-11 | | 103 | (missing) | (missing) | | SerPl-sCnc | 10:37:08 | [facility] | | | | + + + +-------+ + + + + | Result panel 17 | + + + + + +------+ + + | CO2 | 2025-09-11 | | 27 | (missing) | (missing) | | SerPl-sCnc | 10:37:08 | [facility] | | | | + + + +------+ + + + + | Result panel 18 | + + + + + +--------+ + + | Anion Gap | 2025-09-11 | | 13.8 | (missing) | (missing) | | SerPl | 10:37:08 | [facility] | | | | | Calculated.4 | [facility] I[facility]-sCnc | [facility] | | | | + + + +--------+ + + + + | Result panel 19 | + + + + + +-------+---------+ + | Calcium | 2025-09-11 | | 8.9 | mg/dL | (missing) | | SerPl-mCnc | 10:37:08 | [facility] | | | | + + + +-------+---------+ + + + | Result panel 20 | + + + + + +--------+ + + | RBC Auto | 2025-09-11 | | 89.2 | (missing) | (missing) | | | 10:37:08 | [facility] | | | | + + + +--------+ + + + + | Result panel 21 | + + + + + +--------+ + + | MCH RBC Qn | 2025-09-11 | | 29.4 | (missing) | (missing) | | Auto | 10:37:08 | [facility] | | | | + + + +--------+ + + + + | Result panel 22 | + + + + + +--------+ + + | MCHC RBC | 2025-09-11 | | 33.0 | (missing) | (missing) | | Auto-EntMCnc | 10:37:08 | [facility] | | | | + + + +--------+ + + + + | Result panel 23 | + + + + + +-------+ + + | Platelet # | 2025-09-11 | | 270 | (missing) | (missing) | | Bld Auto | 10:37:08 | [facility] | | | | + + + +-------+ + + + + | Result panel 24 | + + + + + +--------+ + + | Neutrophils | 2025-09-11 | | 77.6 | (missing) | (missing) | | NFr Bld | 10:37:08 | [facility] | | | | | Auto | [facility] | | | | + + + +--------+ + + + + | Result panel 25 | + + + + + + + + + | Color Ur | 2025-09-11 | | YELLOW | (missing) | (missing) | | Auto | 14:50:08 | [facility] | | | | + + + + + + + + + | Result panel 26 | + + + + + +---------+ + + | Character | 2025-09-11 | | CLEAR | (missing) | (missing) | | Ur | 14:50:08 | [facility] | | | | + + + +---------+ + + + + | Result panel 27 | + + + + + + + + + | Glucose Ur | 2025-09-11 | | NEGATIVE | (missing) | (missing) | | Ql Strip | 14:50:08 | [facility] | | | | + + + + + + + + + | Result panel 28 | + + + + + + + + + | Bildericub Ur | 2025-09-11 | | NEGATIVE | (missing) | (missing) | | Ql Strip | 14:50:08 | [facility] | | | | + + + + + + + + + | Result panel 29 | + + + + + + + + + | Ketones Ur | 2025-09-11 | | NEGATIVE | (missing) | (missing) | | Ql Strip | 14:50:08 | [facility] | | | | + + + + + + + + + | Result panel 30 | + + + + + +---------+ + + | Henrik Steinberg Ur | 2025-09-11 | | 1.015 | (missing) | (missing) | | Strip | 14:50:08 | [facility] | | | | + + + +---------+ + + + + | Result panel 31 | + + + + + + + + + | Yanet Romero Ql | 2025-09-11 | | NEGATIVE | (missing) | (missing) | | Strip | 14:50:08 | [facility] | | | | + + + + + + + + + | Result panel 32 | + + + + + +-------+ + + | pH Ur Strip | 2025-09-11 | | 6.5 | (missing) | (missing) | | | 14:50:08 | [facility] | | | | + + + +-------+ + + + + | Result panel 33 | + + + + + + + + + | Prot Ur | 2025-09-11 | | NEGATIVE | (missing) | (missing) | | Strip-mCnc | 14:50:08 | [facility] | | | | + + + + + + + + + | Result panel 34 | + + + + + + + + + | | 2025-09-11 | | NORMAL | (missing) | (missing) | | Urobilinogen | 14:50:08 | [facility] | | | | | Ur [facility] Strip-mCnc | [facility] | | | | + + + + + + + + + | Result panel 35 | + + + + + + + + + | Nitrite Ur | 2025-09-11 | | NEGATIVE | (missing) | (missing) | | Ql Strip | 14:50:08 | [facility] | | | | + + + + + + + + + | Result panel 36 | + + + + + +---------+ + + | Leukocyte | 2025-09-11 | | TRACE | (missing) | (missing) | | esterase Ur | 14:50:08 | [facility] | | | | | Ql Strip | [facility] | | | | + + + +---------+ + + + + | Result panel 37 | + + + + + +-------+ + + | RBC #/area | 2025-09-11 | | 0-1 | (missing) | (missing) | | UrnS HPF | 14:50:08 | [facility] | | | | + + + +-------+ + + + + | Result panel 38 | + + + + + +-------+ + + | WBC #/area | 2025-09-11 | | 0-1 | (missing) | (missing) | | UrnS HPF | 14:50:08 | [facility] | | | | + + + +-------+ + + + + | Result panel 39 | + + + + + + + + + | Epi Cells | 2025-09-11 | | SQUAMOUS 2+ | (missing) | (missing) | | #/area UrnS | 14:50:08 | [facility] | | | | | HPF | [facility] | | | | + + + + + + + + + | Result panel 40 | + + + + + + + + + | Crystals | 2025-09-11 | | NONE SEEN | (missing) | (missing) | | UrnS Micro | 14:50:08 | [facility] | | | | + + + + + + + + + | Result panel 41 | + + + + + +--------+ + + | Bacteria | 2025-09-11 | | RARE | (missing) | (missing) | | #/area UrnS | 14:50:08 | [facility] | | | | | HPF | [facility] | | | | + + + +--------+ + + + + | Result panel 42 | + + + + + + + + + | Casts | 2025-09-11 | | NONE SEEN | (missing) | (missing) | | #/area UrnS | 14:50:08 | [facility] | | | | | LPF | [facility] | | | | + + + + + + + + + | Result panel 43 | + + + + + +------+ + + | Bacteria Ur | 2025-09-11 | | No | (missing) | (missing) | | Cult | 14:50:08 | [facility] | | | | + + + +------+ + + + + | Result panel 44 | + + + + + + + + + | Urn Spec | 2025-09-11 | | CLEAN CATCH | (missing) | (missing) | | Collect Meth | 14:50:08 | [facility] | | | | + + + + + + + + + | Result panel 45 | + + + + + + + + + | HCG Ur Ql | 2025-09-11 | | NEGATIVE | (missing) | (missing) | | | 14:50:08 | [facility] | | | | | | [facility] | | + + + + + + + Social History +--------+ + + | date | description | facility | +--------+ + + Vital Signs + + + +---------+ | date | measurement | value | units | + + + +---------+ | 2025-09-11 00:00 | BMI | 31.6 | kg/m2 | + + + +---------+ | 2025-09-11 00:00 | height_metric | 165.1 | cm | + + + +---------+ | 2025-09-11 00:00 | height_standard | 65 | in | + + + +---------+ | 2025-09-11 00:00 | weight_metric | 86.001 | kg | + + + +---------+ | 2025-09-11 00:00 | weight_standard | 189.600 | lb | + + + +---------+ | 2025-09-16 00:00 | BP_diastolic | 72 | mmHg | + + + +---------+ | 2025-09-16 00:00 | BP_systolic | 121 | mmHg | + + + +---------+ | 2025-09-16 00:00 | heart_rate | 50 | /min | + + + +---------+ | 2025-09-16 00:00 | o2_saturation | 99 | % | + + + +---------+ | 2025-09-16 00:00 | respiration_rate | 16 | /min | + + + +---------+ | 2025-09-16 00:00 | | 97.4 | F | | | temperature_standar | | | | | d | | | + + + +---------+"
[~2025-10-23 15:15] MED LIST changes: -HYDROmorphone HCL 1 MG/ML SYR IV PRN; -HYOSCYAMINE SULFATE 0.375 MG TAB.ER.12H PO PRN; -KETOROLAC TROMETHAMINE 15 MG/ML VIAL IV PRN; -LACTATED RINGER'S 1,000 ML IV SCH; -OXYCODONE/APAP 5/325 TAB PO PRN; -PHENAZOPYRIDINE HCL 100 MG TAB PO PRN; -PROMETHAZINE HCL 25 MG TAB PO PRN
[2025-10-23] MEDS ORDERED: OXYCODONE/APAP 10/325 TAB PO ONE (17:15)
[2025-10-23 17:47] VITALS: BP 110/65
== END 2025-10-23 17:47 | disposition home or self-care (01) ==
LOC: ED 15:15
DX: M79.662 Pain in left lower leg (principal); Z88.5 Allergy status to narcotic agent; Z88.8 Allergy status to other drugs, medicaments and biological substances
CPT/HCPCS: 99283-25

== ENCOUNTER 2025-11-04 14:42 | Emergency (ER) | payer MEDICARE, OTHER ==
[~2025-11-04] VITALS: Ht 165.1 cm; Wt 84.8 kg
--- OUTSIDE RECORDS SUMMARY | ~2025-11-04 | XMS | Continuity of Care Document ---
Demographics + + + | Address | [address] | | | [place] [address] | + + + | Preferred Language | Unknown | + + + | Marital Status | Never | + + + | Rastafari Affiliation | Unknown | + + + | Race | White | + + + | Ethnic Group | Not or | + + + Author + + + | Author | [facility] | + + + | Organization | [facility] | + + + | Address | [address] | | | [place] [address] | + + + | Phone | | + + + Care Team Providers + + + + | Care Forming Process Worker Name | Role | Phone | [...] [place] | | | Injectable, Preservative | [facility] | | | Free | | + + + + | (no date) | Influenza, Injectable, | [facility] | | | Quadrivalent, Preservative | [facility] | + + + + Medications + + + + | date | description | facility | + + + + | (no date) | DEXTROMETHORPHAN | [facility] | | | HBR/QUINIDINE | [facility] | + + + + | (no date) | LORAZEPAM | [facility] | | | | [facility] | + + + + | (no date) | ONDANSETRON | [facility] | | | | [facility] | + + + + | (no date) | OXYCODONE | [facility] | | | HCL/ACETAMINOPHEN | [facility] | + + + + | (no date) | OXYCODONE HCL | [facility] | | | | [facility] | + + + + | (no date) | OXYCODONE HCL | [facility] | | | | [facility] | + + + + | (no date) | OXYCODONE HCL | [facility] | | | | [facility] | + + + + | (no date) | MTH/ME BLUE/SOD | [facility] | | | PHOS/PHEN/HYOS | [facility] | + + + + | (no date) | METHYLPHENIDATE HCL | [facility] | | | | [facility] | + + + + | (no date) | DEXTROMETHORPHAN HBR | [facility] | | | | [facility] | + + + + | (no date) | GLYCERIN | [facility] | | | | [facility] | + + + + | (no date) | MELATONIN | [facility] | | | | [facility] | + + + + | (no date) | LINACLOTIDE | [facility] | | | | [facility] | + + + + | (no date) | APIXABAN | [facility] | | | | [facility] | + + + + | (no date) | BUPRENORPHINE | [facility] | | | | [facility] | + + + + | (no date) | NALTREXONE HCL | [facility] | | | | [facility] | + + + + | (no date) | MELOXICAM | [facility] | | | | [facility] | + + + + | (no date) | Buprenorphine | [facility] | | | | [facility] | + + + + | (no date) | BREXPIPRAZOLE | [facility] | | | | [facility] | + + + + | (no date) | KETOROLAC TROMETHAMINE | [facility] | | | | [facility] | + + + + | (no date) | FLUTICASONE PROPIONATE 50 | [facility] | | | MCG | [facility] | + + + + | (no date) | Linaclotide | [facility] | | | | [facility] | + + + + | (no date) | BACLOFEN | [facility] | | | | [facility] | + + + + | (no date) | LORAZEPAM | [facility] | | | | [facility] | + + + + | (no date) | MINOCYCLINE HCL | [facility] | | | | [facility] | + + + + | (no date) | ONDANSETRON HCL | [facility] | | | | [facility] | + + + + | (no date) | LAMOTRIGINE | [facility] | | | | [facility] | + + + + | (no date) | CIPROFLOXACIN HCL | [facility] | | | | [facility] | + + + + | (no date) | ALUMINUM CHLORIDE | [facility] | | | | [facility] | + + + + | (no date) | LORAZEPAM | [facility] | | | | [facility] | + + + + | (no date) | METOCLOPRAMIDE HCL | [facility] | | | | [facility] | + + + + | (no date) | SUCRALFATE | [facility] | | | | [facility] | + + + + | (no date) | LAMOTRIGINE | [facility] | | | | [facility] | + + + + | (no date) | ANTOINETTE ROOT | [facility] | | | | [facility] | + + + + | (no date) | Semaglutide | [facility] | | | | [facility] | + + + + | (no date) | Tirzepatide | [facility] | | | | [facility] | + + + + | (no date) | PANTOPRAZOLE SODIUM | [facility] | | | | [facility] | + + + + | (no date) | AMOXICILLIN | [facility] | | | | [facility] | + + + + | (no date) | CIPROFLOXACIN HCL | [facility] | | | | [facility] | + + + + | (no date) | FOLIC ACID | [facility] | | | | [facility] | + + + + | (no date) | GRANISETRON HCL | [facility] | | | | [facility] | + + + + | (no date) | IBUPROFEN | [facility] | | | | [facility] | + + + + | (no date) | METOCLOPRAMIDE HCL | [facility] | | | | [facility] | + + + + | (no date) | ONDANSETRON | [facility] | | | | [facility] | + + + + | (no date) | BELLADONNA ALKALOIDS/OPIUM | [facility] | | | | [facility] | + + + + | (no date) | CYANOCOBALAMIN (VITAMIN | [facility] | | | B-12) | [facility] | + + + + | (no date) | PANTOPRAZOLE SODIUM | [facility] | | | | [facility] | + + + + | (no date) | SUCRALFATE | [facility] | | | | [facility] | + + + + | (no date) | Atomoxetine HCl | [facility] | | | | [facility] | + + + + | (no date) | LACTULOSE | [facility] | | | | [facility] | + + + + | (no date) | NITROFURANTOIN MONOHYD | [facility] | | | MACROCR | [facility] | + + + + | (no date) | DULOXETINE HCL | [facility] | | | | [facility] | + + + + | (no date) | DULOXETINE HCL | [facility] | | | | [facility] | + + + + | (no date) | PREGABALIN | [facility] | | | | [facility] | + + + + | (no date) | ALBUTEROL SULFATE | [facility] | | | | [facility] | + + + + | (no date) | LEVONORGESTREL | [facility] | | | | [facility] | + + + + | (no date) | CYCLOBENZAPRINE HCL | [facility] | | | | [facility] | + + + + | (no date) | CYCLOBENZAPRINE HCL | [facility] | | | | [facility] | + + + + | (no ) | KETOROLAC TROMETHAMINE | [facility] | | | | [facility] | + + + + | (no ) | IMIPRAMINE HCL | [facility] | | | | [facility] | + + + + | (no ) | Enoxaparin Sodium | [facility] | | | | [facility] | + + + + | (no date) | ENOXAPARIN SODIUM | [facility] | | | | [facility] | + + + + | (no date) | TRAZODONE HCL | [facility] | | | | [facility] | + + + + | (no date) | HYDROCODONE | [facility] | | | BIT/ACETAMINOPHEN | [facility] | + + + + | (no date) | HYDROCODONE/APAP | [facility] | | | ([phone]) | [facility] | + + + + | (no date) | HYDROCODONE | [facility] | | | BIT/ACETAMINOPHEN | [facility] | + + + + | (no date) | ALBUTEROL SULFATE | [facility] | | | | [facility] | + + + + | (no date) | KETOROLAC TROMETHAMINE | [facility] | | | | [facility] | + + + + | (no date) | KETOROLAC TROMETHAMINE | [facility] | | | | [facility] | + + + + | (no date) | POLYETHYLENE GLYCOL 3350 | [facility] | | | | [facility] | + + + + | (no date) | ONDANSETRON | [facility] | | | | [facility] | + + + + | (no date) | CLONIDINE HCL | [facility] | | | | [facility] | + + + + | (no date) | HYDROmorphone HCL | [facility] | | | | [facility] | + + + + | (no date) | PEG 3350/NA | [facility] | | | SULF,BICARB,CL/KCL | [facility] | + + + + | (no date) | PROMETHAZINE HCL | [facility] | | | | [facility] | + + + + | (no date) | PROMETHAZINE HCL | [facility] | | | | [facility] | + + + + | (no date) | PROMETHAZINE HCL | [facility] | | | | [facility] | + + + + | (no date) | PROMETHAZINE HCL | [facility] | | | | [facility] | + + + + | (no date) | BUPROPION HCL | [facility] | | | | [facility] | + + + + | (no date) | HYDROXYZINE PAMOATE | [facility] | | | | [facility] | + + + + | (no date) | HYDROXYZINE HCL | [facility] | | | | [facility] | + + + + | (no date) | MEMANTINE HCL | [facility] | | | | [facility] | + + + + | (no date) | MEMANTINE HCL | [facility] | | | | [facility] | + + + + Problems [...]
[2025-11-04 19:59] LABS: BASOPHILS 0.5 % (0.1-1.2); EOSINOPHILS 0.7 % (0.7-5.8); LYMPHOCYTES 19.8 % (19.3-51.7); MCH 30.1 PG (25.6-32.2); MCHC 33.1 g/dL (32.2-35.5); MCV 90.9 fL (79.4-94.8); MONOCYTES 5.9 % (4.7-12.5); NEUTROPHILS 72.7 % (34.0-71.1); RBC 4.62 M/uL (3.93-5.22)
[2025-11-04 20:19] LABS: ALT (SGPT) 19.0 U/L (14-59); AST (SGOT) 10.0 U/L (15-37); GLOMERULAR FILTRATION RATE,EST 109.0 mL/min (>60); PROTEIN, TOTAL 6.9 g/dL (6.4-8.2); UREA NITROGEN 15.0 mg/dL (7-18)
[2025-11-04] MEDS ORDERED: ETOMIDATE 40 MG/20 ML VIAL IV ONE ×2 (21:45→23:00)
[2025-11-04] MEDS ORDERED: LORazepam 2 MG/ML VIAL IV ONE (23:00)
[2025-11-04] MEDS ORDERED: HEPARIN SOD,PORK IN 0.45% NACL 500 ML IV SCH (23:30)
[2025-11-04] MEDS ORDERED: HEParin SOD (PORCINE) 5,000 UNIT/ML SYR IV ONE ×2 (23:30→23:39)
[2025-11-05 02:50] VITALS: BP 117/72
--- NOTE | 2025-11-06 17:44 | EKG ---
[facility] [address] [place] [address] Signed Sinus tachycardia Low voltage QRS Borderline ECG When compared with ECG of 11-SEP-2025 10:32, Vent. rate has increased BY 35 BPM Nonspecific T wave abnormality now evident in Anterior leads Confirmed by Eugenio Hendricks DO ([id number]) on 11/06/2025 5:44:08 PM Electronically Signed By: EUGENIO HENDRICKS DO 11/06/25 1744 PATIENT NAME: BRODY LINCOLN Electrocardiogram DATE OF : 89 PHYSICIAN: EUGENIO HENDRICKS DO REPORT #: [id number] REPORT IS CONFIDENTIAL AND NOT TO BE RELEASED WITHOUT AUTHORIZATION
== END 2025-11-05 02:50 | disposition short-term general hospital (02) ==
LOC: ED 14:42
PROVIDERS: Family Medicine
DX: I26.99 Other pulmonary embolism without acute cor pulmonale (principal); Z79.51 Long term (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; Z79.899 Other long term (current) drug therapy; Z88.5 Allergy status to narcotic agent; Z88.8 Allergy status to other drugs, medicaments and biological substances
CPT/HCPCS: 36415; 36556; 71045; 71260; 80053; 84703; 85025; 85379; 93005; 93010; 94799; 96374; 96375; 99285-25; C1751; J1644; J2060; J2405; Q9967